=== PATIENT | female | born 1990 | race Caucasian/White ===

== ENCOUNTER 2023-03-23 19:37 | Emergency (ER) | payer MEDICAID, SELFPAY ==
[2023-03-23 19:46] VITALS: BP 125/83; PULSE 90; RESP 18; TEMP 36.8; O2SAT 97; BMI 25.0
--- NOTE | 2023-03-23 20:09 | ED.URI1 ---
HPI - URI/Sore Throat General Chief Complaint: Upper Respiratory Infection Stated Complaint: CONGESTION Time Seen by Provider: 03/23/23 19:39 Source: patient Limitations: no limitations History of Present Illness HPI Narrative: 33-year-old female who is approximately four weeks presents to the emergency Department for nasal congestion. Her daughter is here as well and is being seen for similar circumstances and her other daughter who is not being seen is having similar symptoms as well. No fever or vomiting. No productive cough. She's been sick for the last two days. Related Data Allergies Allergy/AdvReac Type Severity Reaction Status Date / Time Penicillins Allergy Unknown Verified 03/23/23 19:49 Sulfa (Sulfonamide Allergy Unknown Verified 03/23/23 19:49 Antibiotics) Review of Systems ROS Narrative A ten point review of systems is negative except as noted above. Exam Narrative Exam Narrative: Nurses note and vital signs reviewed and patient is not hypoxic. General: The patient appears well and in no apparent distress. Patient is resting comfortably on cart. Skin: Warm, dry, no pallor noted. There is no rash noted. Head: Normocephalic, atraumatic Eye: Normal conjunctiva, no drainage Ears, Nose, Mouth, and Throat: oral mucosa is moist. Nares patent. Mouth without vesicles. Ear canals patent. Tm's without Erythema. obvious nasal congestion present. Cardiovascular: Regular Rate and Rhythm Respiratory: Patient is in no distress, no accessory muscle use, lungs are clear to auscultation, no wheezing, rales or rhonchi Back: non-tender GI: soft and nontender Musculoskeletal: The patient has no evidence of calf tenderness, no pitting edema, symmetrical pulses noted bilaterally Neurological: A&O, normal speech Psychiatric: Cooperative Constitutional Vital Signs, click to edit/add: Last Vital Signs Temp 98.3 F 03/23/23 19:46 Pulse 90 03/23/23 19:46 Resp 18 03/23/23 19:46 BP 125/83 03/23/23 19:46 Pulse Ox 97 03/23/23 19:46 O2 Del Method Room Air 03/23/23 19:46 Course Vital Signs Vital signs: Vital Signs Temperature 98.3 F 03/23/23 19:46 Pulse Rate 90 03/23/23 19:46 Respiratory Rate 18 03/23/23 19:46 Blood Pressure 125/83 03/23/23 19:46 Pulse Oximetry 97 03/23/23 19:46 Oxygen Delivery Method Room Air 03/23/23 19:46 Temperature 98.3 F 03/23/23 19:46 Pulse Rate 90 03/23/23 19:46 Respiratory Rate 18 03/23/23 19:46 Blood Pressure 125/83 03/23/23 19:46 Pulse Oximetry 97 03/23/23 19:46 Oxygen Delivery Method Room Air 03/23/23 19:46 MDM - URI/Sore Throat MDM Narrative Medical decision making narrative: she has a normal exam other than the nasal congestion. Antibiotic is not indicated. She was offered a Covid test but doesn't feel that she needs one. Treatment diagnosis and follow-up were discussed with the patient. Discharge Plan Discharge Chief Complaint: Upper Respiratory Infection Clinical Impression: Upper respiratory infection Patient Disposition: Home, Self-Care Time of Disposition Decision: 20:02 Condition: Good Mode of Transportation: Private Vehicle Instructions: Upper Respiratory Infection (ED) Stand Alone Forms: Portal Instructions Referrals: Physician,Non-Staff, MD [Primary Care Provider] - 1 week
== END 2023-03-23 20:20 | disposition home or self-care (01) ==
PROVIDERS: Emergency Provider Emergency Medicine
DX: O99.511 Diseases of the respiratory system complicating pregnancy, first trimester (principal); J06.9 Acute upper respiratory infection, unspecified; Z3A.01 Less than 8 weeks gestation of pregnancy
CPT/HCPCS: 99281

== ENCOUNTER 2023-04-26 09:38 | Outpatient (OUT) | payer MEDICAID, SELFPAY ==
--- NOTE | 2023-04-26 09:40 | US_ITS ---
The [address] [address] Patient Name: ZULEIKA WADDELL MRN: [id number] date: 1990 Sex: F Assigned Patient Location: US Current Patient Location: US Accession/Order Number: [id number] Exam Date: 04/26/2023 09:40 Report Date: 04/26/2023 20:15 At the request of: DAVE CUELLAR Procedure: US OB transvaginal EXAMINATION: US OB transvaginal HISTORY: MISSED MENSES COMPARISON: No relevant comparison available. FINDINGS: GESTATIONAL SAC: Present and normal appearing. YOLK SAC: Present and normal appearing. POLE: Present and normal appearing. CARDIAC: Present. UTERUS: Normal size and appearance. OVARIES: Right: Not seen. Left: Not seen. CERVIX: 4.8 cm in length and closed. CUL-DE-SAC: Normal. OTHER: None. AGE BY LMP: Unknown LMP HUGO BY LMP: AGE BY US CRL: 8 weeks 4 days HUGO BY US CRL: 12/02/2023 US/US OB transvaginal IMPRESSION: 1. Single live intrauterine 8 weeks 4 days by today's ultrasound. Electronically authenticated by: FELECIA GOLDMAN Date: 04/26/2023 20:15
== END 2023-04-26 09:39 | disposition home or self-care (01) ==
LOC: US 09:39
PROVIDERS: Visit Provider Obstetrics & Gynecology
DX: Z34.91 Encounter for supervision of normal pregnancy, unspecified, first trimester (principal); N92.6 Irregular menstruation, unspecified
CPT/HCPCS: 76817

== ENCOUNTER 2023-05-30 16:35 | Outpatient (OUT) | payer MEDICAID, SELFPAY ==
[2023-05-30 17:06] LABS: Basophils Percent Auto 0.3 % (0.2-2.0); Eosinophils Absolute Auto 0.1 10^3/uL (0.0-0.7); Eosinophils Percent Auto 0.7 % (0.9-7.0); Hematocrit 35.9 % (36.0-48.0); Hemoglobin 11.7 g/dL (12.0-16.0); Immature Granulocytes Abs Auto 0.02 10^3/uL (0.00-0.03); Immature Granulocytes Pct Auto 0.2 % (0.0-0.5); Lymphocytes Absolute Auto 1.5 10^3/uL (1.2-3.8); Lymphocytes Percent Auto 15.5 % (20.5-60.0); Mean Corpuscular HGB Conc 32.6 g/dL (29.9-35.2); Mean Corpuscular Hemoglobin 26.5 pg (26.7-34.0); Mean Corpuscular Volume 81.2 fL (81.0-99.0); Mean Platelet Volume 10.1 fL (9.5-13.5); Monocytes Absolute Auto 0.5 10^3/uL (0.3-0.8); Monocytes Percent Auto 5.4 % (1.7-12.0); Neutrophils Absolute Auto 7.6 10^3/uL (1.4-6.5); Neutrophils Percent Auto 77.9 % (43.0-75.0); Platelet Count 211 10^3/uL (150-450); Red Blood Count 4.42 10^6/uL (4.20-5.40); Red Cell Distribution Width 15.2 % (11.0-15.0); White Blood Count 9.8 10^3/uL (4.0-11.0)
[2023-05-30 17:33] LABS: Estimated Average Glucose 108 mg/dL; Glycohemoglobin A1C 5.4 % (4.5-6.2)
[2023-06-01 06:08] LABS: HBsAg Screen Negative (Negative); HIV Ab/p24 Ag Screen Non Reactive (Non Reactive); Rubella Antibodies, IgG 3.63 index (Immune >0.99)
[2023-06-01 08:11] LABS: HCV Ab Non Reactive (Non Reactive)
[2023-06-01 11:08] LABS: Rapid Plasma Reagin, Quant Non Reactive titer (NonRea<1:1)
== END 2023-05-30 16:36 | disposition home or self-care (01) ==
PROVIDERS: Visit Provider Obstetrics & Gynecology
DX: N92.6 Irregular menstruation, unspecified (principal); Z36.0 Encounter for antenatal screening for chromosomal anomalies
CPT/HCPCS: 36415; 83036; 84443; 85025; 86592; 86762; 86803; 86850; 86900; 86901; 87086; 87340; 87389

== ENCOUNTER 2023-07-18 11:22 | Outpatient (OUT) | payer MEDICAID, SELFPAY ==
--- OUTSIDE RECORDS SUMMARY | 2023-07-18 11:39 | XMS_ITS | CCD ---
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 [facility] Comment on above: Performed By: #### A 1C #### [facility] [address] [place] [address] Dr. Juan Antonio Ibarra TYPE AND SCREENon 07-05-2022 TYPE AND SCREEN Negative Normal [facility] Comment on above: Performed By: #### T NS #### [facility] [address] [address] [address] Juan Antonio Ibarra US PREG BIOPHY W NON STRESSo n 06-28-2022 US PREG BIOPHY W NON STRESS EXAMINATION: US PREG BIOPHY W NON STRESS HISTORY: Congenital anomaly of brain COMPARISON: Ultrasound biophysical 06/21/2022 TECHNIQUE: Ultrasound biophysical profile was performed. FINDINGS: BREATHING MOVEMENTS: 2.0 GROSS BODY MOVEMENTS: 2.0 TONE: 2.0 QUALITATIVE AMNIOTIC FLUID VOLUME: 2.0 PRESENTATION: CEPHALIC HEART RATE: 153.4 bpm bpm. AMNIOTIC FLUID VOLUME: 11.4 cm GESTATIONAL AGE: 38 weeks 0 days CONCLUSION: Total biophysical profile score 8.0. Electronically authenticated by: FELECIA GOLDMAN Date: 2022-06-28 15:29 Normal [facility] US PREG BIOPHY W NON STRESSo n 06-21-2022 US PREG BIOPHY W NON STRESS EXAMINATION: US PREG BIOPHY W NON STRESS HISTORY: Congenital anomaly of brain COMPARISON: Ultrasound biophysical 06/14/2022 TECHNIQUE: Ultrasound biophysical profile was performed. FINDINGS: BREATHING MOVEMENTS: 2.0 GROSS BODY MOVEMENTS: 2.0 TONE: 2.0 QUALITATIVE AMNIOTIC FLUID VOLUME: 2.0 PRESENTATION: Cephalic HEART RATE: 135.0 bpm bpm. AMNIOTIC FLUID VOLUME: 9.2 cm GESTATIONAL AGE: 37 weeks 0 days CONCLUSION: Total biophysical profile score 8.0. Electronically authenticated by: FELECIA GOLDMAN Date: 2022-06-21 17:20 Normal [facility] US PREG GROWTHon 06-21-2022 US PREG GROWTH EXAMINATION: US PREG GROWTH HISTORY: Congenital anomaly of brain COMPARISON: No relevant comparison available. FINDINGS: Heart Rate: 135.0 bpm Amniotic Fluid Volume: 9.2 cm Number: 1.0 Position: Cephalic presentation, longitudinal lie Maximum Vertical Pocket: 3.0 cm cm 1.5 cm cm 1.9 cm cm 2.8 cm cm BIOMETRY: BPD: 8.6 cm cm; 34 weeks 6 days; 12% HC: 33.5 cmcm; 38 weeks 2 days, 56% AC: 31.6 cm cm; 35 weeks 4 days, 24% FL: 7.0 cm cm; 35 weeks 5 days; 18.7 % % EFW: 2778.3 grams, 6 lbs. 2 oz., 26% FL/AC: 22.0 FL/BPD: 80.6 HC/AC: 1.1 GESTATIONAL AGE: Age by EDC: 37 weeks 0 days HUGO by EDC: 07/12/2022 Age by US: 36 weeks 1 day HUGO by US: 07/18/2022 Anatomy: The cisterna magna measures 8.1 mm, stable IMPRESSION: Normal interval growth Electronically authenticated by: GAMALIEL CRUMP Date: 2022-06-21 13:37 Normal [facility] CULTURE URINEon 06-16-2022 CULTURE URINE Culture Observations : LIGHT GROWTH OF MIXED GENITAL ALONSO. NO POTENTIAL PATHOGENS SEEN. Normal [facility] Comment on above: Performed By: #### U RCX #### [facility] [address] [place] [address] Dr. Juan Antonio Ibarra UA (CLEAN/CATCH) [employer]/MICRO I F IND.on 06-16-2022 Bilirubin Ql (U) Negative Normal NEGATIVE [facility] Comment on above: Performed By: #### U MICRO, UACSIND #### [facility] [address] [place] [address] Dr. Juan Antonio Ibarra Clarity (U) CLEAR Normal CLEAR [facility] Comment on above: Performed By: #### U MICRO, UACSIND #### [facility] [address] [place] [address] Dr. Juan Antonio Ibarra Color (U) LT. YELLOW Normal YELLOW [facility] Comment on above: Performed By: #### U MICRO, UACSIND #### [facility] [address] [place] [address] Dr. Juan Antonio Ibarra Glucose Ql (U) Negative Normal NEGATIVE [facility] Comment on above: Performed By: #### U MICRO, UACSIND #### [facility] [address] [place] [address] Dr. Juan Antonio Ibarra Hemoglobin Ql (U) Negative Normal NEGATIVE [facility] Comment on above: Performed By: #### U MICRO, UACSIND #### [facility] [address] [address] [address] Juan Antonio Ibarra Ketones Ql (U) Negative Normal NEGATIVE [facility] Comment on above: Performed By: #### U MICRO, UACSIND #### [facility] [address] [place] [address] Dr. Juan Antonio Ibarra LEUKOCYTES MODERATE Abnormal NEGATIVE [facility] Comment on above: Performed By: #### U MICRO, UACSIND #### [facility] [address] [address] [address] Juan Antonio Ibarra Nitrite Ql (U) Negative Normal NEGATIVE [facility] Comment on above: Performed By: #### U MICRO, UACSIND #### [facility] [address] [address] [address] Juan Antonio Ibarra pH (U) 6.0 [pH] Normal 5-9 [facility] Comment on above: Performed By: #### U MICRO, UACSIND #### [facility] [address] [place] [address] Dr. Juan Antonio Ibarra SPEC GRAVITY 1.020 Normal 1.005-<=1.0 25 [facility] Comment on above: Performed By: #### U MICRO, UACSIND #### [facility] [address] [address] [address] Juan Antonio Ibarra UA PROTEIN Negative Normal NEGATIVE/ TRACE [facility] Comment on above: Performed By: #### U MICRO, UACSIND #### [facility] [address] [address] [address] Juan Antonio Ibarra UR MICRO IND INDICATED Normal [facility] Comment on above: Performed By: #### U MICRO, UACSIND #### [facility] [address] [address] [address] Juan Antonio Ibarra Urobilinogen Qn (U) 1.0 {Pamela'U}/dL Normal 0.2 - 1. 0 [facility] Comment on above: Performed By: #### U MICRO, UACSIND #### [facility] [address] [place] [address] Dr. Juan Antonio Ibarra URINE MICROSCOPIC ONLYon BACTERIA SMALL Abnormal NONE SEEN [facility] Comment on above: Performed By: #### U MICRO, UACSIND #### [facility] [address] [address] [address] Juan Antonio Ibarra Bacteria identified Cx Nom (U) INDICATED Normal [facility] Comment on above: Performed By: #### U MICRO, UACSIND #### [facility] [address] [place] [address] Dr. Juan Antonio Ibarra CAST NONE SEEN Normal NONE SEEN [facility] Comment on above: Performed By: #### U MICRO, UACSIND #### [facility] [address] [address] [address] Juan Antonio Ibarra Crystals LM Nom (Urine sed) NONE SEEN Normal NONE SEEN [facility] Comment on above: Performed By: #### U MICRO, UACSIND #### [facility] [address] [place] [address] Dr. Juan Antonio Ibarra Epithelial cells LM Ql (Urine sed) RARE Normal NONE SEEN /RARE [facility] Comment on above: Performed By: #### U MICRO, UACSIND #### [facility] [address] [place] [address] Dr. Juan Antonio Ibarra MUCOUS NONE SEEN Normal NONE SEEN [facility] Comment on above: Performed By: #### U MICRO, UACSIND #### [facility] [address] [place] [address] Dr. Juan Antonio Ibarra RBC NONE SEEN Abnormal 0-2 [facility] Comment on above: Performed By: #### U MICRO, UACSIND #### [facility] [address] [place] [address] Dr. Juan Antonio Ibarra WBC 2-5 Abnormal NONE SEEN [facility] Comment on above: Performed By: #### U MICRO, UACSIND #### [facility] [address] [place] [address] Dr. Juan Antonio Ibarra GROUP B STREP CULTUREon - S. agalactiae Ag Ql (Unsp spec) Culture Observations: NEGATIVE FOR GROUP B STREPTOCOCCUS. Normal [facility] Comment on above: Performed By: #### G BSCX #### [facility] [address] [address] [address] Juan Antonio Ibarra PREG BIOPHY W NON STRESSo n 06-14-2022 US PREG BIOPHY W NON STRESS EXAMINATION: US PREG BIOPHY W NON STRESS HISTORY: Congenital anomaly of brain COMPARISON: No relevant comparison available. TECHNIQUE: Ultrasound biophysical profile was performed in the radiology department. FINDINGS: BREATHING MOVEMENTS: 2.0 GROSS BODY MOVEMENTS: 2.0 TONE: 2.0 QUALITATIVE AMNIOTIC FLUID VOLUME: 2.0 PRESENTATION: Cephalic HEART RATE: 134.3 bpm H.B./min AMNIOTIC FLUID VOLUME: 7.7 cm cm GESTATIONAL AGE: 36 weeks 0 days CONCLUSION: Total biophysical profile score: 8.0 Borderline oligohydramnios, 5th percentile 7.7 cm Electronically authenticated by: GAMALIEL CRUMP Date: 2022-06-14 16:10 Normal [facility] US PREG BIOPHY W NON STRESSo n 06-07-2022 US PREG BIOPHY W NON STRESS EXAMINATION: US PREG BIOPHY W NON STRESS HISTORY: Congenital anomaly of brain COMPARISON: No relevant comparison available. TECHNIQUE: Ultrasound biophysical profile was performed. FINDINGS: BREATHING MOVEMENTS: 2.0 GROSS BODY MOVEMENTS: 2.0 TONE: 2.0 QUALITATIVE AMNIOTIC FLUID VOLUME: 2.0 PRESENTATION: Cephalic HEART RATE: 150.0 bpm bpm. AMNIOTIC FLUID VOLUME: 6.6 cm GESTATIONAL AGE: 35 weeks 0 days CONCLUSION: 1. Total biophysical profile score 8.0. 2. Polyhydramnios. Electronically authenticated by: FELECIA GOLDMAN Date: 2022-06-07 16:42 Normal [facility] US PREG BIOPHY W NON STRESSo n 06-04-2022 US PREG BIOPHY W NON STRESS EXAMINATION: US PREG BIOPHY W NON STRESS HISTORY: Congenital anomaly of brain COMPARISON: Ultrasound biophysical 06/02/2022 TECHNIQUE: Ultrasound biophysical profile was performed. FINDINGS: BREATHING MOVEMENTS: 2.0 GROSS BODY MOVEMENTS: 2.0 TONE: 2.0 QUALITATIVE AMNIOTIC FLUID VOLUME: 2.0 PRESENTATION: CEPHALIC HEART RATE: 157.0 bpm bpm. AMNIOTIC FLUID VOLUME: 8.1 cm GESTATIONAL AGE: 34 weeks 4 days CONCLUSION: Total biophysical profile score 8.0. Electronically authenticated by: FELECIA GOLDMAN Date: 2022-06-04 17:11 Normal [facility] US PREG BIOPHY W NON STRESS EXAMINATION: US PREG BIOPHY W NON STRESS HISTORY: Congenital anomaly of brain COMPARISON: No relevant comparison available. TECHNIQUE: Ultrasound biophysical profile was performed. FINDINGS: BREATHING MOVEMENTS: 0.0 GROSS BODY MOVEMENTS: 2.0 TONE: 2.0 QUALITATIVE AMNIOTIC FLUID VOLUME: 2.0 PRESENTATION: CEPHALIC HEART RATE: 140.6 bpm bpm. AMNIOTIC FLUID VOLUME: 10.2 cm GESTATIONAL AGE: 34 weeks 2 days CONCLUSION: Total biophysical profile score 6.0. Electronically authenticated by: FELECIA GOLDMAN Date: 2022-06-04 16:23 Normal [facility] US PREG BIOPHY W NON STRESSo n 05-31-2022 US PREG BIOPHY W NON STRESS EXAMINATION: US PREG BIOPHY W NON STRESS HISTORY: Congenital anomaly of brain COMPARISON: No relevant comparison available. TECHNIQUE: Ultrasound biophysical profile was performed in the radiology department. non-reactive stress testing was performed by nursing staff in the birthing center. FINDINGS: BREATHING MOVEMENTS: 2.0 GROSS BODY MOVEMENTS: 2.0 TONE: 2.0 QUALITATIVE AMNIOTIC FLUID VOLUME: 2.0 PRESENTATION: Cephalic HEART RATE: 165.6 bpm H.B./min AMNIOTIC FLUID VOLUME: 8.7 cm cm GESTATIONAL AGE: 34 weeks 0 days CONCLUSION: Total biophysical profile score: 8.0 Electronically authenticated by: GAMALIEL CRUMP Date: 2022-05-31 18:39 Normal [facility] US PREG BIOPHY W NON STRESSo n 05-24-2022 US PREG BIOPHY W NON STRESS EXAMINATION: US PREG BIOPHY W NON STRESS HISTORY: Congenital anomaly of brain COMPARISON: Ultrasound anatomy 02/22/2022 TECHNIQUE: Ultrasound biophysical profile was performed. FINDINGS: BREATHING MOVEMENTS: 2.0 GROSS BODY MOVEMENTS: 2.0 TONE: 2.0 QUALITATIVE AMNIOTIC FLUID VOLUME: 2.0 PRESENTATION: Cephalic HEART RATE: 138.5 bpm bpm. AMNIOTIC FLUID VOLUME: 12.0 cm GESTATIONAL AGE: 33 weeks 0 days CONCLUSION: Total biophysical profile score 8.0. Electronically authenticated by: FELECIA GOLDMAN Date: 2022-05-24 16:34 Normal [facility] US PREG GROWTHon 05-24-2022 US PREG GROWTH EXAMINATION: US PREG GROWTH HISTORY: Congenital anomaly of brain COMPARISON: Ultrasound anatomy 02/22/2022, 03/20/2022 FINDINGS: Heart Rate: 138.5 bpm Number: 1.0 Position: Cephalic Amniotic Fluid Volume: 12.0 cm Maximum Vertical Pocket: 4.4 cm BIOMETRY: BPD: 8.3 cm cm; 33 weeks 4 days; 62% HC: 30.3 cmcm; 33 weeks 4 days; 28% AC: 29.5 cm cm; 33 weeks 4 days; 66% FL: 6.5 cm cm; 33 weeks 4 days; 53 % EFW: 2216.3 grams; 58% FL/AC: 22.0 FL/BPD: 77.9 HC/AC: 1.0 GESTATIONAL AGE: Age by EDC: 33 weeks 0 days HUGO by EDC: 07/12/2022 Age by US: 33 weeks 4 days HUGO by US: 07/08/2022 IMPRESSION: 1. Single live intrauterine with growth detailed above. Electronically authenticated by: FELECIA GOLDMAN Date: 2022-05-24 16:33 Normal [facility] GLUCOSE - 1HRon 04-04-2022 Glucose [Mass/Vol] 101 mg/dL Normal 74-106 [facility] Comment on above: Performed By: #### R PRQ #### [facility] [address] [address] [address] Juan Antonio Ibarra HEMOGRAM AND PLATELon 2021 Hematocrit (Bld) [Volume fraction] 33.5 % Critically low 36.0-48.0 [facility] Comment on above: Performed By: #### A 1C #### [facility] [address] [address] [address] Juan Antonio Ibarra Hemoglobin (Bld) [Mass/Vol] 10.7 g/dL Critically low 12.0-16.0 [facility] Comment on above: Performed By: #### A 1C #### [facility] [address] [address] [address] Juan Antonio Ibarra MCH (RBC) [Entitic mass] 29.3 pg Normal 26.7-34.0 [facility] Comment on above: Performed By: #### A 1C #### [facility] [address] [address] [address] Juan Antonio Ibarra MCHC (RBC) [Mass/Vol] 31.9 g/dL Normal 29.9-35.2 [facility] Comment on above: Performed By: #### A 1C #### [facility] [address] [place] [address] Dr. Juan Antonio Ibarra MCV (RBC) [Entitic vol] 91.8 fL Normal 81.0-99.0 [facility] Comment on above: Performed By: #### A 1C #### [facility] [address] [place] [address] Dr. Juan Antonio Ibarra PLT 179 103/ul Normal 150-450 [facility] Comment on above: Performed By: #### A 1C #### [facility] [address] [place] [address] Dr. Juan Antonio Ibarra RBC 3.65 106/ul Critically low 4.20-5.40 [facility] Comment on above: Performed By: #### A 1C #### [facility] [address] [place] [address] Dr. Juan Antonio Ibarra WBC 9.9 103/ul Normal 4.0-11.0 [facility] Comment on above: Performed By: #### A 1C #### [facility] [address] [place] [address] Dr. Juan Antonio Ibarra US PREG REEVAL ABNon 022 US PREG REEVAL ABN EXAMINATION: US PREG REEVAL ABN HISTORY: ultrasound scan abnormal COMPARISON: Ultrasound anatomy 02/22/2022 FINDINGS: Heart rate: 146 bpm Anatomy: Posterior fossa is upper limits of normal, 10 mm. GA: 23 weeks 5 days HUGO: 07/12/2022 IMPRESSION: 1. Single live intrauterine . 2. Posterior fossa diameter is upper limits of normal, 10 mm (7 mm on prior study). Electronically authenticated by: FELECIA GOLDMAN Date: 2022-03-20 20:55 Normal [facility] US PREG ANATOMY SINGLEon US PREG ANATOMY SINGLE EXAMINATION: US P REG ANATOMY SINGLE HISTORY: anatomy study COMPARISON: No relevant comparison available. TECHNIQUE: Transabdominal sonographic examination was performed for obstetrical and evaluation. FINDINGS: Number: 1 Heart Rate: 138.0 bpm H.B. /min Amniotic Fluid Volume: Subjectively normal Placental Location: POSTERIOR with lower margin 4.1 cm from os. Cervix Length: 5 cm ; closed. ANATOMY: Normal Structures -cerebellum, choroid plexus, cisterna magna, lateral cerebral ventricles, orbits, midline falx, hard palate, four-chamber heart, RVOT, LVOT, stomach, kidneys, bladder, umbilical cord insertion into abdomen, three-vessel cord, cervical spine, thoracic spine, lumbar spine, sacral spine, right upper extremity, left upper extremity, right lower extremity, left lower extremity. SUBOPTIMALLY SEEN: None ABNORMALITIES: None BIOMETRY: BPD: 4.6 cm 19 weeks 6 days HC: 18.1 cm 20 weeks 4 days AC: 15.0 cm 20 weeks 2 days FL: 3.4 cm 20 weeks 6 days EFW:357.6 grams; 74% FL/AC: 22.9 FL/BPD: 75.0 HC/AC: 1.2 GESTATIONAL AGE: Age by EDC: 20 weeks 0 days HUGO by EDC: 07/12/2022 Age by current US: 20 weeks 3 days HUGO by current US: 07/09/2022 IMPRESSION: 1. Single live intrauterine with growth detailed above. 2. Borderline prominent posterior fossa, 7 mm. Follow-up recommended. Electronically authenticated by: FELECIA GOLDMAN Date: 2022-02-22 16:46 Normal [facility] Coding Summaryon 02-14-2022 Coding Summary HTMLBase 64 OuvexarpMJq6iLv+PGhlYWQ+PE 8CKRUgH01uzMBmoJ3VV7fVXB6S JLFUXOGIXU0BGF6lrPM8TTxbC2 VybiAv HmqgqVMeXP75AMt5QUK8fAtbTZ vrhM1ieCFrI7h0GcIuVC85nD07 HPemWURfIvL5CrVcssjlmZJj U7luQmZciORwLtw+PHRhYmxlIH nwSJEvYZwzBVPqJoCpjSclFE0q Hk3zEIHaVCXzxShodVKhWaYm e3xuEGRsGIpjGE9zwMnwT8UncE U7NJSyc6a9Es32sGV+PHRkIHN0 dViqESxrc941MnNza7evWBC1 hIJqTZldILL3I59li4H2QPAiVR XkDOJ8xAO3yS3cfMcvmieoO0St fUOyYiE0ZGK4eKWuoR0erVnx tfevhF7bLvu+F11DWQ8SJHAEXY 2JZml8A2GzWwyqeUF+HO86TQNj FZ89jXKioCMub1zzqNx8HyEo PJNfJQR1nFjoVKqdl7BvWYKaU4 6nyLGpk2G3BVJhvHddfWCjUoNw mIU2uV5zRRycpuqqy0jgdlnw Dpsgg2ljgr30wW12C12nLUqgXT ZwTPK3XFByLHXttItxmr6thP3e Ii8+MGqyl8tew3aqwAd9MvDa BAGmqqXjnTxgLYC3f7TbAx49W3 XvpGmfg9ZaEal0od14kZKbw0T2 qGZ1WEhvTERmsE4nPPokRzQ6 DXDfIiCzjR43gBSuYQzbLb7opP mzzLelCJ8pVXFqsxraRKQdrV6m OVGnpXJvgYtjGD6tTSZmshto q702DaYyVXB1EIHnnOChZ2PvzK 6rHkSjNUIxSMCcV9PpaAPqSDxz H146KLwzPxV2GOWiheHtH9Qk PKXwsRuoJvT0b0K4Ud1Pr0Vxbw kgGAG7DQhyTYH5VsUnFmOyBoQ8 L0GwPyf6ILSwmFwpSB9rZ5Ww OVZfuxjbawuftCP9IIQtJZLkxM 71rVFtJIxfBd6jj7X0f277MWZf YGWrzA50Qw2dhRttQGAedZUP pV2nzrdio3yhagliQsQjNXZgZR i1BQi1ERTkoFzlYkIwOKZ6MfR9 UJI9fTPisV3yiRubtlgqbA4h Oyc+X51qgP2wFQW7DQK3ypsqSG QgukScXN10LE90K4CfMtrsxUWx bGU+PUTcnbYidIprXH4fRcWb k7goo0HzLOcoT2FlQSWeDKukGz p1NWMuNID4qNG2hT0nIJOoKZdy i8Z3nLG0S2MurrQqkf2ma3yf HKBeIRjlU25xhIYpx9F7GSIziX H1JQDkdSfoEaUrzS36Qtw+PGNv wXkgf4JkBzvkn0rgj9bbcTg8 SeEtRQGaxrQodKfnRZO2m1ItLs 34Z69eMYqfCHXyGSWcUKAhSLCf aZohny3paT1mKr4+PGNvbCB3 gHX6zK7fPRYqHxJ8ANbnL885Vh UqvQRwZqzim0hrk2rcwSc3QcDk QNQtktBozMigQGB5a5PdMs45 E31mINpyHIMwKYRgWWZkRVSjbJ fsvx4cxN9uRw2+BL8sq9yemb99 mB13pGR+RAVzCPB9lCvsTWcz CHRmkA4gVGhqTeG1SAGmRyDvwN 00sKZrXGbbSh8dkTdypFyiPJ2g KELrwuckk251BmPcs1bdLEFw qWMxXNyoOYP9O07rd7N5WFZyZM FxJON5iOK9pE0zxBafbahvyULj yXakgfCubAklKNopCFlmC817 IHRvcDsnPlBhdGllbnQgTmFtZT t2L6RiOcw2EJYjbRbqQR5kcGRe JTyvUi4iaAoaqXcsCG3lWJWk cuapb827GsRad3tjPSLcwEWqUZ xkVXR8F09mr7I3OEFyOYSxUWM6 cWS7hR5pwWbrujrkaHWjeWqm wiHxbQixNZvnOVcjW647DQGlpF lyLmIgzoSzIKYzsBP9XB66VM20 hLHfs7L7oCZ0Q7MwDVSeoety vrzdxLQ0HGLdNWBebR13Qq5ojX xvKo5oKXKsLJT2KVLgtBPtU8Yr wZ2dDlGdJXIgVGNaV9IvcIAf JWnmX467YPreIzL9CUXkwwPrY6 TiZZVkyFdaLcB4h6X7Ev9XV2W5 BB97JA25iSMks6W2rUJ9O7Cw ZWWyszatwwpokZQ0KQJfYCQaqB 65Ss3uxQjcXh9sERCgWIE4PZUw bGSyJ7LduP7tTlBwBGNwERVf D1QafXFfWVfkX665YLrhBqY7KW JppeKrJ5SwKGGgzGzzYlA8u8U8 Eo0SVAx3FR74SL36fLQjb3Y2 uMI7L2HhUOAhoqfphshzyFB6SF NhAXGkzX30Qx2arNscWq2uTNYz VPP9EEOueADaH8VijT2uRtOb TRTaXDPzD4XxcWCaVQahQ940CO igNsE3TELczvTdV5JnSAXvjRsi XzX0d9O4Bm3FHGTvHH57YXZ0 kQB4YP54HT14W5AkHqyghBGwcM U+PHRhYmxlIHdpZHRoPScxMDAl DdSqwQhdUS9oVy1iXVBmZDCr cXmbzIAcMoGrz5iiVHRpWChuWA 5xvCdgC5KsgXC6RQIjs1m6Kp00 D94cT8AwiDN+LGZgfOI0tMC1 dU5dAwFaIoA3XWdrD453XxLlnB SxQqdoy5ujw8utbBh9XiH8APEd gnMzhGowNIH3h5VdCy40M24s IHdpZHRoPSIxNSUiIHZhbGlnbj 1ayW7zJs1+HWCqaYU2zGN0uA0x GmPtYjX6CWnyS782MhMchQBv Xgzox1xty6sujFw8NdNvVYWllv TutFwvAGY0s9ZcVj05D7QdvHnp i4FoCju4ku01vZZtr0H5oAF0 N3RpNUBcfckxyOYwtLqyUE9dPA OuvfeiZSCpeG1mQCLwV8i1BaZa ExQ6FBmtH0MxpxK9LADufHRf XRksODG3Q32ad0J2IXXjCOZoET Q8eZC9mZ3zoDkjdcanzCBfoGcg hgJpgKhvJVaiAGhoW507OVZe bFfvYKEzcS9vKXJwhMKrpJvlYB 4wNTBpbjsnPlNURUlOLCBWSVJH SB0WDKSJRHJ5V9RkVkw5OLKi kPekVL6qhULwTGyaEo5geDjvsJ kaXC2gJUElmkqvKUDiwJ9oGCJy bBDtuRfoLH2nMANcriggu064 DdVbTPP1NXVgiNCiM3HczB1uVj CkKTVePXRlO5BedVBfQDcwC675 VEpzFqU2XKRjqlEtC2GkCUFv mQrnRfW4g6A5Pu6lOA3dGB6wCY lfMG26UP73eCMfv0T6xRL9R9Rn YRKcddhybojhfUW4PAWqQUEu fC84yNGsSYzgHy1zx2F8v046YC XwDSSirN38Al2enIpwGDQevJSI zL5scvqyv3xdqznaRvVrTPWx AMf3HAo0CVJlyMwmIvNrGNU9Zo N4YVZ1gKWlrI0rqCtwikkjiA9s Oyc+GocpJVZenhN5Z5QjVll5 QNBmxZahFC8imOXgKAicEo3ovO qdrQnmYB0tFHVrzxilQYHolX3q RAVnlBSzuEnsFV1yTRCidypu k238NlIiJTU3CKAkyTAqT9UehC 2tPnZsBNBfRQNmA1DleWQtVCff S405LYcnHjW9QLKxvbWrR6Wn KJQdnDhhAoP8o1P5Ik3CUB7XTC Z9A6QhJog4ZHEjqSiyYQ1wgIDk MVswTu2jxXahbPdvPV5bNWVh xlodYIHwuC8wEAFwyTPxxLsmLH 5eRTPqmcnxd790SyWiFYH2SEPg jOVgB4AdkI9nEqBfYEIjLSQx K0OqdFMfLBvmZ904YTgcGbB4VA EoacYkM8TcVIOenHevIhT9n3U9 Ed7RODyjaMR+MT93ij60K2Ag YkppKsf7DNEnMGK7uLT4pJ9zFX HwHKala9R5gOC4V7XstnLlyb1f v3lnTMHdZNqjX82ulHVit6T6 BZSjrWO1GUExtPunYkCdnM12Cz c+FAFdfIktz0ZkZpeap3sqz6ta mNe7RtGdXZZryfNlcDrlWZO8 p5TxBl39H84hBCdjMMRlNFZiSP NqGZVbyFyqun3rjG9iJu0+PGNv yLL3vGE6mI4eQeRxYyH2YRsr N935VeRrfBFlPleud3vcd1wxhG y3OvXoWPOqkgWlpPnwRHG8u2Ou Ni80L6OjxDjuu3XbWgz0kb93 lKVgt3J2wTG2J2QkFAZnrdrigC EstAujPM6vZTRuqzvgIZXseB5d OLNjR9d0IfKqMdS1CUdyQ7Gp alU0FOJmzRKjZBMskHKNlQ7pkp tig5kmfqyvWrBzAQMeYKr7MFz5 SFOzgJhaFoVyFLM5RqC1YDH3 lHUzqB1rtRhycmgcoT3tChl+UG c8o0kzhQQyTH8juAI8NJ85PS16 gLVjc7Q7vHQ5D7QrWQHavujm vgkqwKB7VUGkOEWpvU92Zy5xwE ltHw4yCSMzULN6YSYlhFOgY4Vi rC3eNzRtNXOeBMAwH1GscWPe PAttV082KChuGqP8CGTvwsDcC1 ScBXRutWhvWtV7k9K3Hi6OEM98 GI87GR26lORtf8M3hDW7A6Ty HWHxjzppfloisWF7KGDyYORyjC 92Im0imAhnYx7hNYChUHT1EYRk sTZvM5CrrM3pJhMmJLOpOJGm R5LroJEsVIbrT455UOqfAoO7YN YkliNbT2PsZIXwtJbvXhZ8m9V2 Lc8RMm43PM28KE06tLSwc6D1 iHN4D2CxPJAddglvkxecgTD0NL HbHBCihA44Oq7ozOpsIb0tGEPo KYR6LYKlxKHeJ3LaoS4pDaKe FTBfVISjA1EhkSHkUQuoB069SK ajFmS9URFrrcGqZ2FwKGVuvYqj BlS4f9D5Rs7FQRymbtl8M1Qi PjwvdHI+IT87YJTtXA95fOPuuV Pqm3zvcVs9SzElDTZuRCU0wQci XMlmx8RgUSNuX06syRPzr4S7 IGN (more content not included)... [facility] Coding Summary HTMLBase 64 ClejzylpMAs4hJg+PGhlYWQ+PE 4GDZZpD52bdSTbqF3IP3vAPH1T QTVRURBFWQ2VEL6ivLA0BGfgX3 VybiAv CteaxXOiWE31BVh5UPJ1zWmxBO gmdC0eiORgZ7h5UqYnPY31rP75 XAmsBVMqBsJ1BrVapvlmdUTk R8reWsCedNVlPbj+PHRhYmxlIH ohOUCqUBhhCWStYvHszQqzUI1w Ry9sUKOgWBEnpHgznILkXrAd j5eeOIOiWJouVI5obFopF1MtnM A2JSUkl8y6Xr98cGE+PHRkIHN0 eVzdKPoht301LrWre5fdMCK3 jZQaZJoiYSG3Q46mf1E5SHOyQZ VxHFX9bDE3hP8xnUzejcqjH8Km xDLhKyD8LGZ3lJHvbC0dnNca nozejK7qMff+P43NLT8FUBPDDF 1RLsr6A4QgWttmnZI+OA11ZVIf UK58gNMmmBXvv6adxJg3RkZi WRUfYEY3rYlzJOsqb1NaBGCcV4 4rlYOgc8A8KHWdsJzurWSfQwJe zCC1fI3xSQzeywpgg4odiuao Gtcwv9ndfn89kV86Q42fXPgiLF EpEIK2AKSfCEFxyDpzwn5ytX4m Ii8+XUwpj9omj0egdXb9UbYp JDEmgbQlkIvwENS1l9BhNt37Y0 GweUora3SdErl0ku23pYRfy8J0 jFU3LRncCUVtsX6cCQpgHiZ9 FIObZbAuwG82zPCdXVvmWc5cxE gwkHejBD6yDBYvgwafJNToeK4k WBQjlYOipUiaXI8tFVLakhdh v352UrZoYES8YUHbkQKoN2JidD 5vOcXcGOSgYUPcT4XxeJTfYCxy I798KXowLiB1EWTdvtAfS2Zy WWRoaDqbNzI5k4Y8Re2Qw9Gyyi dzZWY6LXwaOXI4PsSgKaRuDjT2 L8KmGgx3OAGxfBnwTN7xQ0Cw GOFxyrhyqlxsgHF8HPFxZQBolX 36vAKwSJfsPe2bx4D0w524QQJd ZTUszT23Vx8ydHiyBBAzcINF nR4nrpras5mfhmizNdXbAHFiYU x1QBa9OOWjbGcuQkPcCCS0PpY8 JYY0aQSylT8wdAxjjfwibO8e Oyc+Z11scR7lBKP4OOZ2zpheGB UgvkYkZU59WZ90T6CeYqdnfUKb bGU+OQJvutQqjNkoQJ8gIyWk v2fqv6ImBNiuP6VqZMNoPGdiUc h9KJXjVDN8cHJ6aA5tFHAiHUng k0R1gWM8E5CbowTqju4al2la XWLiDAcuK42mfLPop1L0MMGxeQ K4IGWgrEwlQiUblP27Izy+PGNv gAbcq7JvZfljj0cwn3nlnGy6 SgCpLHDaysZvuYtuDKV9m1UeOr 80X34yJQnyRVTjLFPmJSYrOORk pTqlxv4ooG2sVi0+PGNvbCB3 yPW7oG4bFNWcIfM8WPliM746Sr YrlYZbLowbx4hwn9ywhDt0UwHv LBGpkrJomMhhOUB9j3YiSu75 O23aMMuxNQFgSTWzEOFrOCVnfG agnn2hmP4bDs7+OR8kh5jabf69 oO93lKL+ODHsGTZ3hQkvKZza AQBpjT0nJEpiAaV1NFPnLqWdgT 70wJSmUHtxId8bjJvlxHtnKP9j ZJKpklvsq999QnKrh3ovGWUi wBBnDNfcMUI5A03bn5Y7TNAbDY RjPAQ8kRQ4cC9ugDdqmqfxsNJp lEhiitJijSnzMKdbOPbsT295 IHRvcDsnPlBhdGllbnQgTmFtZT k2H7OrVbl3UEUhgLruJV1tfBXa AFwmCj7wtYskbWafSZ3oXGCb lxvxi572PrMlq5uqUGZxlCDhVK ejWNO2Q15ws5D0UXDyVMRsUYN2 vED6vE6rzJoocrzbbUJmuDuf yzLsbRsiOXxpLHiiL692REKbqM pwXdSgrvSrBHQwfQZ3KY78MW28 sBPky6M9wBF9C3ZfGVBfxpzj fzonjBS6XRAdLULawR48Bo7euC yrPu0oGRWkSEM6EUFknTLfG4Kz vT0iPdUuWNKgYGSnV7UytMCz NEyaH836THzhBtA8UOTzlhIdQ5 DrOVYnvBijMoA3f8C4Tz4LI6T5 JK86XB51zJRlt2A7gPY9F8Qi WYOeblccjiyhkNM6QUPjWVCbnF 08Cr3boNkoYo6gQJVhELL4YWLi oLKiM9IfrY4dSdWxXAEiPGXn E1FquPRtIBkoE301JXlmBdW2DC CbujBvQ7AvFPHctDbaUqP6v8X6 Qv3QBKy5PH15KT81sSPae2O5 dJF6S9YwEVJiajcqbdzjuQM5OT OdNLWraT03Am0keFrkSl9aBNFc OMN5VTFlwCLpS3SatT7nTiAd NPNtSSVdA7BozIYyQThoY803RP tnHdW5GINycyWbK3AvBTEzjGgy NqI9f9Z8We3HXNFmXW10ROZ3 zBQ3HL66GJ18O8KyAshwbVCakS U+PHRhYmxlIHdpZHRoPScxMDAl YbMpqBfjEG5aOn6iOCYdWLEi rHjngRVtNuMxp4znSQZbPBarHJ 0uwLazB9NrwQI2LZYat0a2Yv12 C92aK2CuxNK+JHArsRA0kRH1 oF9vCiXsCvJ3YSjdS441TzTuaK GqRqomr0upc2yceJp6JtX9QDYt qxGgrNpiSFI5r7HgNn94S63o IHdpZHRoPSIxNSUiIHZhbGlnbj 3jcZ0kUm6+JUFoyXE8hZL4iU3a FkZsPrB1DXysU863XeNubHUp Sgwck2aar4iooNm9YrXeKEOpzh JjtNdeLOI3m9YgWn14W2GiuFav h8BdKfe1dr88sYUwd6X1sHI0 H1DhGGJoqrtjhLKyfPsdWV4aGY CwfwrhYKWmzN6cTCNrV2v8VbWu KeX8DCfuJ0BklsW9OPSdwXMh RPtdSIT6V25cf8L1SXTaQELoDJ V3xFM1yU7amPympmxssMIudBfj iaVfsSywUXwsAJtyT139GWBe hKsoAZPfpC3nNNJofJCkmOilHB 4wNTBpbjsnPlNURUlOLCBWSVJH IU8MMZMXNLW6C4NcQxj7CNWh eGfiCZ6sqCNoZEslDz6iiMytbV fdAU8aKNWbigmvJXBueX0jARLo sLVqeBnkZH1oTLCyhulnx118 ZoAeNPP3EKZwtOMpX0DtgU0dZn AeZMEjPEEsJ0SpiWRfDGawH929 PCjcNmI4USJhsqQjN6ZyHLZe wUuhWgI6q6Y7Fp9oOW6aDD1dJK dcYG53PT10gRRit8N2aPP4B3Sm FTOgwoaprzptcEW2TIQbKBEi pO58aDKwSHrnHm9fq4J1p963EV NeEFHacP62Kl3mrXvcRXDjaASJ pC6doichv5lggiwuWcOxTNEd XLe9HMq3JHEdpFffCbQkNLR6Kl S0EPX7aPMqyL5vaCgpaqpvrI6j Oyc+ZdgrZNLpfpR0U1JaHje9 LJTyjUevJZ7ilTZfSIqcIp7tyZ pqnTzwWJ4eSLGigioaAHEroL9c UKHwyOWpnNbcGJ4uFIJfsvvz d412VrJyWHB8VRJhmQFwF5GeyR 7qRzErRVLfGKDyH3RxaGCsIFsj T958SMfdYvI2ASIxyrTsQ2Hq OHSglQulVlQ3h3U6Zb3HAN6KUN Z5S6XzBqh8QIPamAfaZJ3mbZQp YFftNk1bxDqukTsyPI3oNSQs zcmpAWLbtV4yCNVamFMvdYzkPV 1sLSMnmddhc238JgAyGAS0RILa gMWhV6SjkD5pEzQjDUOpUATf U5QpvCZjGSzsS143TNueQmV6FG OyteMtT3KtGFKwaNqqDzZ5q6W0 Fi3KsANiZ0VlS5x4Q6VzLmuh dHI+FR55JIGpZQ79tSNjuHVkd6 avcWb8RxGyGIKvQLJ9jPpaCFqq z4BxXDYbL26tdQVxp0X6ELKo oFxhzPBsVlQraZR4cX3nYHcmhm lzs5efjbwmEkiyy7bvtq06sQ68 Q04tLLxoLAJtWQHpAVBrGWOy hHxhmo8qiO3nPc8+SAXfxSS9bK X2gG7jXkYjXdA9XYmiX707SvDz aKRkPthbx3ybq1msqQu0RhLi XEWvgcZbvIbwWXL0r5ZbOm95T2 9sIHdpZHRoPSIyMCUiIHZhbGln po7evV7mJf6+VS9hq6uxov25 fM85bSL+KKRgOPN8jFbnHMmcRU SpeE7wRIznGvB9SYPsSsMlhN00 jSDoABlrEz5juUkcwLzpSF0g NTGihmhva763WkWqc6ogDPTpfW VtMRupJBF8Z88mc9D2HPDlIFYy GOG9yAW8pW6rqLpcfrthfXYk wLzvxeMutCifJJemCLdeV952AT WcqXybXlFwbLKwA2osljSQAP5k OjwvdGQ+BELlSRF2rXfmTGzp NZVqdW9xOJAhP8y8FyGbQcI9YC nmX2FcbiV8IJHxhKFlOMDstUWK rC9kjwjdv3iyjyswQeQsXIUx TKx0OEt9RRXlfUsjQfXbBAS2Ao C6YYZ1jUQbmC2irAcaxybiwT6s Oyc+RklOOjwvdGQ+PHRkIHN0 sDywBMuaTJWxbF8sIEQhI3z3Ah OwGoG4RDdgC1LiduC5KLDauQXh WFArmYCHsT1pufgxc1isnidn KoDxWNTcFFh1BTk2KYKarSlvGu JxWXL9PxY2ICT8uXJfeK7wxOey vnnlaB5lSrz+TVJOOjwvdGQ+ BFAiKKZ5zLucGJllGUUytS2yDQ FhE8e4SuYvMgW6MPblC5CtjyX3 LHNylOFvBMIvtWVPzR9xflom q2qzqsigFzTxCCHlFLh5FRs7YW CyiIkcKlYbOGB1CoK9ETY9pLQz xZ2yuYrprqdmhO6dWob+UGF5 RNE8XL69HY90U7SrKyyojESmeC U+PHRhYmxlIHdpZHRoPScxMDAl VcVfhPgqCU6tZf0qIILhGCAc bGx (more content not included)... Normal [facility] CHLAMYDIA/GONOCOCCUS RAINER (SW AB/URINE/PAPon 02-09-2022 Chlamydia trachomatis, RAINER Negative Normal Negative [facility] Comment on above: Performed By: #### R PRQ #### [facility] [address] [address] [address] Juan Antonio Ibarra Neisseria gonorrhoeae, RAINER Negative Normal Negative [facility] Comment on above: Performed By: #### R PRQ #### [facility] [address] [place], [place] [address] Dr. Juan Antonio Ibarra AFP MATERNAL FOR SPINA BIFID Aon 02-08-2022 AFP MoM 1.41 Normal [facility] Comment on above: Performed By: #### A FPMAT #### [facility] [address] [address] [address] Juan Antonio Ibarra AFP Value 66.8 ng/mL Normal [facility] Comment on above: Performed By: #### A FPMAT #### [facility] [address] [address] [address] Juan Antonio Ibarra AFP, Serum for Spina Bifida Report Normal [facility] Comment on above: Performed By: #### A FPMAT #### [facility] [address] [address] [address] Juan Antonio Ibarra Comment Comment Normal [facility] Comment on above: Result Comment: Melchor Chaudhary, Ph.D., [facility] Director . References: Available Upon Request. . Multiples Of Median Cutoffs For AFP Elevations Briscoe 2.5 Black 2.8 IDD 2.0 Twins 4.5 Abbreviation Definitions IDD - Insulin Dep Diabetes OSBR - Open Spina Bifida Risk . For further inquiries contact [email or web address] [facility] at [phone]. . This test was developed and its performance characteristics determined by [employer]. It has not been cleared or approved by the Food and Drug Administration. Performed By: #### A FPMAT #### [facility] [address] [address] [address] Juan Antonio Ren Age Collection Date 18.3 weeks Normal [facility] Comment on above: Performed By: #### A FPMAT #### [facility] [id number] Juan Antonio Ibarra Gestat, Age Based on LMP Normal [facility] Comment on above: Result Comment: Reca lculations are not recommended when gestational dating by LMP and ultrasound are within 10 days. Performed By: #### A FPMAT #### [facility] [address] [place] [address] Dr. Juan Antonio Ibarra Insulin Dep Diabetes No Normal [facility] Comment on above: Performed By: #### A FPMAT #### [facility] [address] [place] [address] Dr. Juan Antonio Ibarra Interpretation Comment Normal [facility] Comment on above: Result Comment: Inte rpretation: Screen Negative . This result is screen negative for OSB. The AFP MoM calculated is based on the gestational age provided. MS-AFP can identify up to 80% of open neural tube defects. Closed neural tube defects and some open defects may not be detected by this test. This test does not screen for Down Syndrome or Trisomy 18. If screening for Down Syndrome or Trisomy 18 is desired, contact [facility] [employer] [facility] to discuss available options. The [employer] recommends amniocentesis be offered to women age 35 and older. Performed By: #### A FPMAT #### [facility] [address] [place] [address] Dr. Juan Antonio Ibarra [age] [facility] Comment on above: Performed By: #### A FPMAT #### [facility] [address] [place] [address] Dr. Juan Antonio Ibarra Multiple Gestation No Normal [facility] Comment on above: Performed By: #### A FPMAT #### [facility] [address] [place] [address] Dr. Juan Antonio Ibarra OSBR Risk 1 [place] [address] [facility] Comment on above: Performed By: #### A FPMAT #### [facility] [address] [place] [address] Dr. Juan Antonio Ibarra PDF . Normal [facility] Comment on above: Performed By: #### A FPMAT #### [facility] [address] [place] [address] Dr. Juan Antonio Ibarra Race Normal [facility] Comment on above: Performed By: #### A FPMAT #### [facility] [address] [address] [address] Juan Antonio Ibarra Test Results: Negative Normal [facility] Comment on above: Performed By: #### A FPMAT #### [facility] [address] [address] [address] Juan Antonio Ibarra VAGINITIS/VAGINOSIS DNA PROB Abdirashid 02-08-2022 Bettye species Negative Normal Negative [facility] Comment on above: Performed By: #### A 1C #### [facility] [address] [address] [address] Juan Antonio Ibarra Gardnerella vaginalis Negative Normal Negative [facility] Comment on above: Performed By: #### A 1C #### [facility] [address] [place] [address] Dr. Juan Antonio Ibarra Trichomonas vaginalis Negative Normal Negative [facility] Comment on above: Performed By: #### A 1C #### [facility] [address] [address] [address] Juan Antonio Ibarra ABO and Rh group post transf usion reaction Nom (Bld)Ordered By: Eleazar Hess on 02-06-2022 Microscopic observation Gram stain Nom (Unsp spec) [facility] ED Clinical Summaryon 2021 ED Clinical Summary [facility] Emergency Department [address] [place], [place] [id number] ED Clinical Summary PERSON INFORMATION Name: ZULEIKA WYATT Age: 31 Years Sex: FEMALE : 1990 MRN: Acct#: Visit Reason: Rash; Medical problem - minor; POSS BODY INFECTION Arrival: 01/29/2022 20:27:46 Discharge: 01/29/2022 21:17:00 LOS: 000 00:50 Check In: 01/29/2022 20:27:46 Checkout:01/29/2022 21:17:00 Address: [address] [place] [address] [address] [place] [address] PCP: Andie Stoddard PROVIDER INFORMATION Provider Role Assigned Unassigned Johnson Wright DO ED Provider 01/29/2022 20:29:08 River RN, Jessica ED Nurse 01/29/2022 20:31:57 VITALS INFORMATION Vital Sign Triage Latest Temperature Tympanic Temperature Temporal Artery Pulse Rate 76 bpm 76 bpm O2 Sat 100 % 100 % Respiratory Rate 16 br/min 16 br/min Blood Pressure /77 mmHg /77 mmHg MEDICAL INFORMATION Medications Given: Medication Dose Route clindamycin 150 mg PO Allergy Information: sulfa drugs; penicillins PHYSICIAN DOCUMENTATION Patient: ZULEIKA WYATT Age: 31 years Sex: FEMALE : 1990 Associated Diagnoses: Sebaceous cyst Author: Johnson Wright DO Basic Information Time seen: Date & time 01/29/2022 20:32:00, Without distress, ambulation without assistance, checking out the ER as walked in. . History source: Patient. Arrival mode: Private vehicle, walking. History limitation: None. History of Present Illness The patient presents with This patient presents to the emergency room for evaluation of increasing tenderness to a left breast lesion, over the past couple days. She states she has had a very tiny area there for years and she used to squeeze it and material would be expressed and it would go away and then it slowly come back and she would really express it, then go away and she states now she is , and she states she has noticed that is gotten a little more swollen and and then the last several days got little bit tender, and there is slight erythema to the skin. She has not had this irritation in the past. Is never been drained, she has no other problems. No fever, no problems, she has a single child, and is around 16 weeks . Not a diabetic, no history of cardiac valvular disorders, no history of synthetic joints, she not a smoker, she here with her , she has a little girl with her here today 2. She is just concerned that being she wants to make sure this is okay, her had an infected cyst on his left shoulder number years ago, got quite large, she states she has never had MRSA before. She denies any sore throat cough congestion fever chills nausea vomiting diarrhea. She seen in room #6, seen in the presence of her , seen in the presence of her little girl, and the all very cooperative and pleasant. That she is got a sebaceous cyst which is about 2 cm when you get around to it including the subcutaneous tissue around this which is in the left medial breast, its not adherent to the skin, it does not not demonstrate any skin retractions, there is no pointing to it, it is fairly deep, it is not significantly tender, and it does not require an I&D procedure at this time. The remainder of her exam is excellent, HEENT exam is normal, no anterior posterior axillary nodes, her lungs are clear, there is no expiratory wheeze or rales Chest motion her heart rate and rhythm is regular no murmur, and her abdomen is soft, she denies any vaginal related or related issues. The skin is very slightly erythematous around this which I have a feeling is may be from manipulation we will put her on some clindamycin which is okay during , will take care of staff, will take care of MRSA, will take care of strep, and warm compresses, I told him they can call me down here if there is an issue, and return as necessary to the department if this flares up but otherwise to follow-up with their family doctor or their WORKERS COMPENSATION CLAIMS ADJUSTER doctor. To this they agreed.. Health Status Allergies: Allergic Reactions (Selected) Unknown Penicillins- No reactions were documented. Sulfa drugs- No reactions were documented.. Medications: (Selected) Prescriptions Prescribed Quantitative beta-hCG: See Instructions, Quantitative beta-hCG. Please call or fax results to Dr. Ortiz's office, 1 box(es), 0 Refill(s) Documented Medications Documented Multivitamins with Vitamin B Complex, Vitamin C, Minerals and L-Methylfolate oral capsule...: 1 cap(s), PO, Daily, 0 Refill(s). Past Medical/ Family/ Social History Medical history: No active or resolved past medical history items have been selected or recorded.. Surgical history: No active procedure history items have been selected or recorded.. Family history: No family history items have been selected or recorded.. Social history: Social & Psychosocial Habits Alcohol 11/13/2021 Alcohol Use: Current Fr (more content not included)... [facility] ED Note - Physicianon 2021 ED Note - Physician Patient: FRANCOISE WYATT Age: 31 years Sex: FEMALE : 1990 Associated Diagnoses: Sebaceous cyst Author: Johnson Wright DO Basic Information Time seen: Date & time 01/29/2022 20:32:00, Without distress, ambulation without assistance, checking out the ER as walked in. . History source: Patient. Arrival mode: Private vehicle, walking. History limitation: None. History of Present Illness The patient presents with This patient presents to the emergency room for evaluation of increasing tenderness to a left breast lesion, over the past couple days. She states she has had a very tiny area there for years and she used to squeeze it and material would be expressed and it would go away and then it slowly come back and she would really express it, then go away and she states now she is , and she states she has noticed that is gotten a little more swollen and and then the last several days got little bit tender, and there is slight erythema to the skin. She has not had this irritation in the past. Is never been drained, she has no other problems. No fever, no problems, she has a single child, and is around 16 weeks . Not a diabetic, no history of cardiac valvular disorders, no history of synthetic joints, she not a smoker, she here with her , she has a little girl with her here today 2. She is just concerned that being she wants to make sure this is okay, her had an infected cyst on his left shoulder number years ago, got quite large, she states she has never had MRSA before. She denies any sore throat cough congestion fever chills nausea vomiting diarrhea. She seen in room #6, seen in the presence of her , seen in the presence of her little girl, and the all very cooperative and pleasant. That she is got a sebaceous cyst which is about 2 cm when you get around to it including the subcutaneous tissue around this which is in the left medial breast, its not adherent to the skin, it does not not demonstrate any skin retractions, there is no pointing to it, it is fairly deep, it is not significantly tender, and it does not require an I&D procedure at this time. The remainder of her exam is excellent, HEENT exam is normal, no anterior posterior axillary nodes, her lungs are clear, there is no expiratory wheeze or rales Chest motion her heart rate and rhythm is regular no murmur, and her abdomen is soft, she denies any vaginal related or related issues. The skin is very slightly erythematous around this which I have a feeling is may be from manipulation we will put her on some clindamycin which is okay during , will take care of staff, will take care of MRSA, will take care of strep, and warm compresses, I told him they can call me down here if there is an issue, and return as necessary to the department if this flares up but otherwise to follow-up with their family doctor or their WORKERS COMPENSATION CLAIMS ADJUSTER doctor. To this they agreed.. Health Status Allergies: Allergic Reactions (Selected) Unknown Penicillins- No reactions were documented. Sulfa drugs- No reactions were documented.. Medications: (Selected) Prescriptions Prescribed Quantitative beta-hCG: See Instructions, Quantitative beta-hCG. Please call or fax results to Dr. Ortiz's office, 1 box(es), 0 Refill(s) Documented Medications Documented Multivitamins with Vitamin B Complex, Vitamin C, Minerals and L-Methylfolate oral capsule...: 1 cap(s), PO, Daily, 0 Refill(s). Past Medical/ Family/ Social History Medical history: No active or resolved past medical history items have been selected or recorded.. Surgical history: No active procedure history items have been selected or recorded.. Family history: No family history items have been selected or recorded.. Social history: Social & Psychosocial Habits Alcohol 11/13/2021 Alcohol Use: Current Frequency: 1-2 times per month Substance Abuse 11/13/2021 Substance use: Current Type: Marijuana Comment: STates smokes week weekly but stopped 5 days ago when she found out she was . - 11/13/2021 16:58 Gracy Joseph RN Tobacco 11/13/2021 Smoking tobacco use: Current everyday tobacco Number used per day: States smokes 1 cig/day Electronic Cigarette/Vaping 11/13/2021 Electronic Cigarette Use: Use, within last 90 days Type: Cannabinoid infused, Flavored only, Nicotine infused Use per Day: 1-25 Inhales/day Comment: States vapes nicotine daily but stopped 5 days ago when she took a test. - 11/13/2021 16:57 Gracy Joseph RN . Problem list: Active Problems (1) No Chronic Problems . Medical Decision Making Orders Launch Orders Pharmacy: clindamycin (Order): 150 mg, PO, Once. Impression and Plan Diagnosis Sebaceous cyst ([id number] L72.3, Discharge, Medical) Plan Condition: Unchanged. Disposition: Discharged: time 01/29/2022 20:59:00. Prescriptions: Launch prescripti (more content not included)... Normal [facility] ED Patient Summaryon 022 ED Patient Summary [facility] - Emergency Department [address] [place] [address] PATIENT DISCHARGE INSTRUCTIONS Patient Information Name: ZULEIKA WYATT Age: 31 Years Date of : 1990 Reason For Visit: Rash; Medical problem - minor; POSS BODY INFECTION Arrival Time: 01/29/2022 20:27:46 Primary Care Physician: Andie Stoddard Attending Physician: Johnson Wright DO Comment: Visit Diagnosis: Diagnoses This Visit Medical problem - minor ([id number]) Rash ([id number]) Sebaceous cyst (L72.3) The Pharmacy at [facility] is open Saturday through Saturday from 9A to 6P and Saturday and Saturday from 9A to 5P Prescription Information: If you have been given a prescription for narcotics, seek immediate medical attention if you have any difficulty breathing or any sudden status changes such as confusion and sleepiness. If you or anyone you know is experiencing suicidal thoughts, mental health, alcohol and/or drug addiction problems; contact the [facility] 07/01 Crisis Hotline -Text 0CQHB ld 316103. If you received any narcotics, sedation, or any other medication that causes drowsiness for the next 24 hours, unless otherwise directed: ? Do not drive a car. ? Do not operate machinery such as power tools, lawn mowers, drills, sewing machines, or stoves ? Avoid alcoholic beverages and drugs for allergies, nerves, or sleep ? Do not make important personal or business decisions or sign any legal documents With: Address: When: Andie Wyatt [address] [address] Business (1) Within 3 to 5 days Comments: home warm compresses clindamycin for antibioitic see your ob, or Dr Wyatt, for recheck apt ----at some point, this might have to be removed; this is not cancer, but a retention cyst of fat material; Return if very red and tender, or fever, vomiting worse You are welcomed to return anytime. Call Dr Wright, ext [phone], if any question patric WRIGHT< ER PHYSICIAN< H B [facility] Medication Information: The exam and treatment you received today in the [facility] Emergency Department were for an urgent problem and are not intended as complete care. It is important for you to follow up with a doctor, nurse practitioner, or physician?s social human services assistants for ongoing care. If your symptoms become worse or you do not improve as expected and you are unable to reach your usual health care provider, you should return to the Emergency Department, we are available 24 hours a day. For those patients who have received Radiology results, the interpretation of your X-ray as given to you by our Emergency Department physician is only a preliminary report. The Radiologist will review your films and if there is a change in the diagnosis you will be notified by phone. Please make sure you have provided a working phone number so we can reach you if necessary. In the event that you had a lab culture while you were a patient in the Emergency Department, you will be notified by phone if there is a need to change your antibiotic. Please make sure you have provided a working phone number so we can reach you if necessary. [facility] Emergency Department has provided you with a complete list of medications post discharge. Please inform your gun tester/provider of your visit and for further instruction on these medications. Any specific questions regarding your chronic medications and dosages should be discussed with your primary care physician(s) and/or pharmacist. New Medications Printed Prescriptions clindamycin (clindamycin 150 mg oral capsule) 1 cap(s) Oral 3 times a day for 5 Days. Refills: 0. Medications to Continue That Have Not Changed Other Medications Misc Prescription (Quantitative beta-hCG) Quantitative beta-hCG. Please call or fax results to Dr. Ortiz's office. Refills: 0. multivitamin, ( Multivitamins with Vitamin B Complex, Vitamin C, Minerals and L-Methylfolate oral capsule) 1 cap(s) Oral every day. ondansetron (ondansetron 4 mg oral tablet, disintegrating) 1 tab(s) Oral once as needed as needed for nausea/vomiting. Visit Information Allergies: Substance Reaction Symptoms Type Comments penicillins Drug sulfa drugs Drug Vital Signs: Vitals and Measurements this Visit (last charted value for your 01/29/2022 visit) Vital Signs This Visit Temperature Temporal: 37 DegC Peripheral Pulse Rate: 76 bpm Respiratory Rate: 16 br/min Systolic Blood Pressure: 114 mmHg Diastolic Blood Pressure: 77 mmHg SpO2: 100 % Oxygen Therapy: Room air Measurements This Visit Height/Length Dosin.100 cm Height/Length Estimated: 165.100 cm Weight Dosin.500 kg Weight Estimated: 63.500 kg Problems List: Problem Onset Comments No Problems found Patient Education Epidermoid Cyst (more content not included)... Normal [facility] TYPE AND SCREENon 12-30-2021 TYPE AND SCREEN Antibody Screen [facility] Blood Bank Notes performed by CV on 12/26/2021 ABO Rh Typing A Rh Positive Blood Bank Notes performed by CV on 12/26/2021 Normal [facility] Comment on above: Performed By: #### R UBIGG #### [facility] [address] [place] [address] Dr. Juan Antonio Ibarra HEP B SURFACE ANTIGEN SCREEN on 12-28-2021 HBsAg Screen Negative Normal Negative [facility] Comment on above: Performed By: #### H BSANS #### [facility] [address] [place] [address] Dr. Juan Antonio Ibarra HEPATITIS C VIRUS AB W/ REFL EX QUANTon 12-28-2021 HCV AB 0.2 s/co ratio Normal 0.0-0.9 [facility] Comment on above: Performed By: #### A 1C #### [facility] [address] [place] [address] Dr. Juan Antonio Ibarra Interpretation: Comment Normal [facility] Comment on above: Result Comment: Nega tive Not infected with HCV, unless recent infection is suspected or other evidence exists to indicate HCV infection. Performed By: #### A 1C #### [facility] [address] [place] [address] Dr. Juan Antonio Ibarra HIV 1 AND 2 WITH REFLEXon HIV Screen 4th Generation wRfx Non-Reactive Normal Non Reactive [facility] Comment on above: Result Comment: HIV Negative HIV-1/HIV-2 antibodies and HIV-1 p24 antigen were NOT detected. There is no laboratory evidence of HIV infection. Performed By: #### R UBIGG #### [facility] [address] [place] [address] Dr. Juan Antonio Ibarra RPR QUANTon 12-28-2021 Rapid Plasma Reagin, Quant Non-Reactive Normal NonRea<1:1 [facility] Comment on above: Result Comment: Plea se Note: This test does not meet current guidelines for screening and diagnosis of syphilis. This test is intended for following treatment response in patients being treated for syphilis infection. To screen for syphilis infection, a reflex cascade that includes both RPR and a treponema-specific assay should be utilized, such as Treponema pallidum (Syphilis) Screening [place] (615038) or Rapid Plasma Reagin (RPR) Test With Reflex to Quantitative RPR and Confirmatory Treponema pallidum Antibodies (252239). Performed By: #### R PRQ #### [facility] [address] [place] [address] Dr. Juan Antonio Ibarra RUBELLA AB IGGon 12-28-2021 Rubella Antibodies, IgG 3.48 index Normal Immune >0.99 [facility] Comment on above: Result Comment: Non- immune <0.90 Equivocal 0.90 - 0.99 Immune >0.99 Performed By: #### R UBIGG #### [facility] [address] [place] [address] Dr. Juan Antonio Ibarra CBC AUTO DIFFon 12-26-2021 BASO # 0.0 103/ul Normal 0.0-0.1 [facility] Comment on above: Performed By: #### A 1C #### [facility] [address] [place] [address] Dr. Juan Antonio Ibarra Basophils/100 WBC (Bld) 0.3 % Normal 0.2-2.0 [facility] Comment on above: Performed By: #### A 1C #### [facility] [address] [place] [address] Dr. Juan Antonio Ibarra EO # 0.0 103/ul Normal 0.0-0.7 [facility] Comment on above: Performed By: #### A 1C #### [facility] [address] [place] [address] Dr. Juan Antonio Ibarra Eosinophils/100 WBC (Bld) 0.4 % Critically low 0.9-7.0 [facility] Comment on above: Performed By: #### A 1C #### [facility] [address] [place] [address] Dr. Juan Antonio Ibarra Erythrocyte distribution width (RBC) [Ratio] 13.5 % Normal 11.0-15.0 [facility] Comment on above: Performed By: #### A 1C #### [facility] [address] [place] [address] Dr. Juan Antonio Ibarra Hematocrit (Bld) [Volume fraction] 38.9 % Normal 36.0-48.0 [facility] Comment on above: Performed By: #### A 1C #### [facility] [address] [place] [address] Dr. Juan Antonio Ibarra Hemoglobin (Bld) [Mass/Vol] 12.9 g/dL Normal 12.0-16.0 [facility] Comment on above: Performed By: #### A 1C #### [facility] [address] [place] [address] Dr. Juan Antonio Ibarra IG # 0.03 10e3/ul Normal 0.00-0.03 [facility] Comment on above: Performed By: #### A 1C #### [facility] [address] [place] [address] Dr. Juan Antonio Ibarra IG % 0.3 % Normal 0.0-0.5 [facility] Comment on above: Performed By: #### A 1C #### [facility] [address] [place] [address] Dr. Juan Antonio Ibarra LYMPH # 1.4 103/ul Normal 1.2-3.8 [facility] Comment on above: Performed By: #### A 1C #### [facility] [address] [place] [address] Dr. Juan Antonio Ibarra Lymphocytes/100 WBC (Bld) 14.5 % Critically low 20.5-60.0 [facility] Comment on above: Performed By: #### A 1C #### [facility] [address] [place] [address] Dr. Juan Antonio Ibarra MANUAL DIFF REQ NO Normal [facility] Comment on above: Performed By: #### A 1C #### [facility] [address] [place] [address] Dr. Juan Antonio Ibarra MCH (RBC) [Entitic mass] 29.6 pg Normal 26.7-34.0 [facility] Comment on above: Performed By: #### A 1C #### [facility] [address] [place] [address] Dr. Juan Antonio Ibarra MCHC (RBC) [Mass/Vol] 33.2 g/dL Normal 29.9-35.2 [facility] Comment on above: Performed By: #### A 1C #### [facility] [address] [place] [address] Dr. Juan Antonio Ibarra MCV (RBC) [Entitic vol] 89.2 fL Normal 81.0-99.0 [facility] Comment on above: Performed By: #### A 1C #### [facility] [address] [place] [address] Dr. Juan Antonio Ibarra MONO # 0.5 103/ul Normal 0.3-0.8 [facility] Comment on above: Performed By: #### A 1C #### [facility] [address] [place] [address] Dr. Juan Antonio Ibarra Monocytes/100 WBC (Bld) 4.6 % Normal 1.7-12.0 [facility] Comment on above: Performed By: #### A 1C #### [facility] [address] [place] [address] Dr. Juan Antonio Ibarra NEUT # 7.7 103/ul Critically high 1.4-6.5 [facility] Comment on above: Performed By: #### A 1C #### [facility] [address] [address] [address] Juan Antonio Ibarra Neutrophils/100 WBC (Bld) 79.9 % Critically high 43.0-75.0 [facility] Comment on above: Performed By: #### A 1C #### [facility] [address] [place] [address] Dr. Juan Antonio Ibarra Platelet mean volume (Bld) [Entitic vol] 10.0 fL Normal 9.5-13.5 [facility] Comment on above: Performed By: #### A 1C #### [facility] [address] [place] [address] Dr. Juan Antonio Ibarra PLT 194 103/ul Normal 150-450 [facility] Comment on above: Performed By: #### A 1C #### [facility] [address] [place] [address] Dr. Juan Antonio Ibarra RBC 4.36 106/ul Normal 4.20-5.40 [facility] Comment on above: Performed By: #### A 1C #### [facility] [address] [place] [address] Dr. Juan Antonio Ibarra WBC 9.7 103/ul Normal 4.0-11.0 [facility] Comment on above: Performed By: #### A 1C #### [facility] [address] [place] [address] Dr. Juan Antonio Ibarra CULTURE URINEon 12-26-2021 CULTURE URINE Culture Observations : LIGHT GROWTH OF MIXED GENITAL ALONSO. NO POTENTIAL PATHOGENS SEEN. Normal [facility] Comment on above: Performed By: #### R UBIGG #### [facility] [address] [place] [address] Dr. Juan Antonio Ibarra GLYCOHEMOGLOBIN A1Con 2021 ADA RECOMMENDATION SEE BELOW Normal [facility] Comment on above: Result Comment: ADA RECOMMENDED LIMIT 4.0 - 6.0 ADA THERAPEUTIC TARGET < 7.0 ACTION SUGGESTED > 7.0 Performed By: #### A 1C #### [facility] [address] [place] [address] Dr. Juan Antonio Ibarra Glucose [Mass/Vol] 114 mg/dL Normal [facility] Comment on above: Performed By: #### A 1C #### [facility] [address] [place], [place] [address] Dr. Juan Antonio Ibarra HbA1c (Bld) [Mass fraction] 5.6 % Normal 4.5-6.2 [facility] Comment on above: Performed By: #### A 1C #### [facility] [address] [place], [place] [address] Dr. Juan Antonio Ibarra US PREG TVon 12-07-2021 US PREG TV EXAMINATION: US PREG TV HISTORY: Irregular periods COMPARISON: No relevant comparison available. FINDINGS: GESTATIONAL SAC: Present and normal appearing. POLE: Present and normal appearing. YOLK SAC: Present. CARDIAC: Present. UTERUS: Normal size and appearance. OVARIES: Right: Corpus lutein cyst. Left: Normal. CERVIX: 4.1 cm in length and closed. CUL-DE-SAC: Normal. OTHER: None. AGE BY LMP: 9 weeks, 0 days HUGO BY LMP: 07/12/2022 AGE BY US CRL: 9 weeks, 4 days HUGO BY US CRL: 07/08/2022 IMPRESSION: 1. Single live intrauterine . Electronically authenticated by: FELECIA GOLDMAN Date: 2021-12-07 16:59 Normal [facility] Coding Summaryon 11-21-2021 Coding Summary HTMLBase 64 EymolzofJPk6cCz+PGhlYWQ+PE 0DISNzB67daNLciQ3CI5hMWB2G QWVGGWQRAB4TBO2mtUE2VWpiG5 VybiAv SgludQHbJW62LKi9PNB3mTwuBS jmiD3quBRsC6l3LdSrCE08rU72 HFyaLGPzVjG9RxEhggnzbYBt Y1mfDdNraDEhIlh+PHRhYmxlIH kkPJQjOVdpIAAiYwDizCjdNX3v Vy8kWPAkMNVnaFnixTWdQoUy r8prQMKlLCkaRU9zwHwvR9VtyD M1NYMrm9j4Wo51qMT+PHRkIHN0 lKeiIZvdt027BwSnm0ooDZA1 sRJmDZwfKAW6N63ad0R3NNCjBW JdEZX2tAB5jB7vfPkvmgjmP0Go pYXxMuK0EDW1pPEdfO2oqMkx bmrngG6dYzd+U07ZEQ2VDCFUCL 4SXeq2L0EsAixwhBI+UY02CUHq KQ00aJNftMUej0zxoZr2BkCk QDWgJXB0zQirGKekc2WbQZIjP3 8buMCtj7P1GNEmzZqknVRqWyCj oLB5wN0bVRqetnkem8olflib Kyvis9yulc84qN78H68zGBacCJ HhOLV5GYWaPNFtxIqcar1hyR7k Ii8+KMfob2nvx3rrfLv0LiPa WRDxugUfiOspOHX0n9QiCt88P5 XtgPlnc3XlYlj9hd62oGVii1N3 kIA1WVcgDERskF7uZLbxGzG9 VFQqVhHrvX99vYVkSSrcRp9hvE hobPiyLB5aZSCuwupeVWNhkQ0q AHCjhAOvbHwmCC4bVXMrhgof r485AkDsKZB4EIGyhMAdQ3RqoM 6mPzIeLDBbKUTjP8OnjQAmDJzm M026PGgxFaC1GIVfqoTtW4Tb KBAmvDvcOmW9d1O6We6Mj4Lpcy dbQMQ2PYwrFLZ9GcW9ZqKdQxX6 M6GdJmd2UCUkfFzwCD0mQ9Do CGTqrkbwxeasuYD7FZFjZJTywB 21rABlNQmvLv3vi0B4u711HLOv IJMvdH08Hj8jkJaeRRQstYZF hG9gythdp4gahsfzPbJdPTYrPJ t4JKo9JQNcmKatUeBjWKB8HlM3 RHW4dPIlgF4fzRnlkntmcS2d Oyc+H47twR6gLSZ6HML7oplnNO QcibPtLA02DH85W2TuPhcaqVPa bGU+NWZbdfLzwVdjCA4gTzHm e7kcf5TkDYubE2JlJRQeVBpuUw q9BYQmKPC8wNY7kR0fOUGtLWdk u2V3nTX1W7WudnSsyq0zp1ev UKOfJSemL38clGJnm2D2NUHqdH H2MAKhxRzfIfGdoC90Bat+PGNv iTktm4SpGykur4dbt3pkhXx8 AzIkGJUzdeLgoXpdTLE3t4SjLt 07N80lRConYWNzKFFmLHPwNZHd qKuxbo8pgF3kCe9+PGNvbCB3 hFB2zG9hFKXuKwI2MEnvL423Ms ExzGHxLtfde4pzy3ceeXi5VuBk SCXngtQzpKyjRDO1n1MqUb72 A91uGXunQZVfKBRkDTIhAWNvqF tyta0eeM6yDz4+RR8jn0knak29 vQ75eIY+QLSnIOS6wCuuHGji DHWbsO2cRFryOpI9OBMoOzStcP 94rGAkELjzDs9reXbwrPvbAU3v YJTrufcgk172XxDof7orXOGd eVCbKVtqIGF4B21wc3G0OIKuBQ SyWKK5yKM1rS8zoLhcmexsuEWk bTfeaaQgvQywQEsqNLquJ609 IHRvcDsnPlBhdGllbnQgTmFtZT x1M0DeTmx8KVBrfNpjML2lpHGa TOokBa3spNdfpVtkIB2sCKQp pdywo433StHwb1ogDEVvyHRtVR dbFFL7P70hn8W9AWRrDLMuLRZ8 kIM4qV1umKhqctpvaWIulMgo djBssKczZBxfCGcfP881YDFvwH paYeVcweKiIPWxdAQ3FR36EF42 oYMdn3M3bXA6A9SqPVGmjojt jifmsRF0XYKeFQYqeF69Re1ohZ laQs0iCTGdTVN2JJQxrOYeJ1Cl nC7hExFtZDStCVHyX9CqeDMi QGymX578ZQqyWjM6QNPkyhYgX6 MwCENnfGxcMuU4i5P9Bb3ZV6I1 JU78TB48nXEkw7B5wSV3P6Ip BHNbwesztxnsoKO3YINsPQPsmX 83Cq0giClkXe0wKVOaIHR2ZIIb sDFyB7RirB5dPbUgVZQzNVYb M3GbqRHuIMvnT424CWwqPmQ2IS NkkjRmR7WuQPSlaMsqGsY4g9Z4 Sd6ADFy9US60SM91wHJfe7E0 mPQ5C0WrQXOlwlynlcjfxWN6CI AqIXRgoR68Lo9ihDsyBp5dTOXt YLY7IJYjcSOgD0DimM6rWmLu IYMbQUYjS1LngAUgPShkY532LA joPnJ9EQDzgpMfT9ZcQGPozDhx YiJ6m4H4Qe1INHZvGQ20VDP4 fTY3EH18HQ19V0KkPouqpFHocN U+PHRhYmxlIHdpZHRoPScxMDAl XuLkcTpaHE8fQa2mYZWmQGBf nOkukVNpQvUhm9jtAOVpHGooRZ 6ycRhfY4IvhYO2OMVms2p2Od40 I67sP9VpqOM+YBBsvTQ4oUV7 jY2rOqVcAbB6KTrkA373IfRepK CbUjzqr6aje5jeqZe3AsU1TJSv hnDupWxiIJO1x3SoMq44T18i IHdpZHRoPSIxNSUiIHZhbGlnbj 9hqM8fOe7+GMRorGJ9jEF1bL8t TyRsZvB7ITlpM092DiHhbJUb Doays1ywc0qgrXw4TsDjOTQeeb DqfYabVSK4s1DxYx28M5XwcBcv o0HfGsy0ht71rUNbp8U7nQT1 K8InHJXtuysftNAbaLhsOS5xIG JrvvziNPEpjF3uIHKaF1x7NwMv SwW6CBhkV6ReetP7PJZitSAg FNtlTWG4E57qh7O9NKFzYVPiGE G1rOQ7jK9cmGqgpzjsaVZhfOhw wgDxpUlgYNdeANeaW655SGFd lNliZGNgzR7cCAVvwYPwnBilIR 4wNTBpbjsnPlNURUlOLCBWSVJH IF4MVSDXWRX8I3GdOdr3COVl wHcrUW5mvTFlVXscIj0brJsutP odZH9bYALbjfruQVSfoX5xXAHi oEKdbQkqPW6xFXXdcbpmn409 FoDdETJ6SDAucCZvJ3MaxT6yNc KdORJiYVMhU6EhsTTvMPbzB914 LQtmZdO2GAByuoExG3CqRMZs fJnjEdD6r4T3Zj3vLE1mYF7oCX rpVC11QF89gDJir4C8uEV9F9Mx YMRaywkrvxzkhAN2DGTuTLLb mN79kKMrFTvqLy5qa3J4f519NN UzDKVptY80Qn7mtHtuDFRutPOP sI4jwvuod4tlbnozSoNwMTIu SMr7TSh6CGRwpZmmRsIyLNC2Tj A4PCN3mADjwQ6isJkdfqjsxG4z Oyc+RqmzWOLewyF6H6FlLvm2 FGHriIilRB7tyMXpUDggSy3ccR tmcFjsIJ0gPAXhafhgFPBbsX8m JAFwvZYhxGgvZZ7tVBEsrpnr a278PjEdXMY4BVViiNNxU7YfpI 1yGuHeMMVaWSKhH6QcfOPvFYhp V960DEdbBxI7NELzmcTjF9Ys SBPfcDhuJyU4s8K4Wn3JND5BTP H6D5VpGmw1CPBevEdkUV8bwORc UIvcMz9atGpriSmgCX9bKVVg nwirDOMpmP6aANPpuRKwsVszBZ 2kXRMaoaszo145NvHuKLJ3IRYx aAYrX7SqpL5cVdSyITKsAQNv J7WuhPRhFXmtR204EGzwPuW8KL QiaiBlA2LfMMWnuUlyGhM0u3L6 Dl6ZGEgotGR+QY25ye39S0Nq TeksFka7IRDmPES6qVD7yD0zGI CjLMydo9P9kBP2X8BdmnNhkd4a t0rlUXXuPOfdM37huMZzf4A7 HHVdbVX0RWTbnYmwDlHqlS17Nv c+KCExnXnac5ByXcnku9bja6tk oPl8MlUuDVWgvaLyiVjsGRJ7 j1ItKy46G04xZMdgWSKiOAReRI XcPUFheUvitr0fjZ6cCs4+PGNv dWY1hXC2qN6jPqVdArL3YJdy R794TbIjzECzHrayw1ekv7pzuR o5BgTjWREcgsNxnEfxGHR0r7Up Sd83U1ChcEcrk8LeZty3rd19 qPDmq2H9yGX5Y2PdWXSnmipzyS MowCanRV9cMXTvlnsqTLYgiC8n GVAwZ7z4NmGcKcX4PFaiZ3Ml wjQ7HLRcgYOqKXDjuGRBcN1zav ctx0siggxaJlWtKTUlKSj7TRf3 EVLssUvhDyKnRCB2VnA8UVZ4 iXFqzI7tnFqbblthmA0hFwf+UG q1p4ulgZYyKQ8shQV1AS72KY66 zLBgl8F5bTW9S7QaEFTzfpie nnhslNJ2MEZpGWQqrA26Yj7nlW umQf9mWMZgDLP8ZKEadUWeL9Pn rO5aZuZwXGQcKMYqZ4VseJJb MCtzK966DNthIqQ1RBClspTiG9 QuCBHhjDskChU2r9Y0Lx1OWL14 KQ39ZK25fPIwb6B0uTR1G5Wg TAOlsdxtmhsykZM7RMCeZDNpuK 95Gl4wdFikLo8uMUKlZWJ9BHFf iBAhZ3RzfR0tUoQfEKUtMSIb B1ZnvULaDNweF483PFzxJzQ5QA FxmyDkQ1JgENKnoAywRvM7c0U9 Fe3ATb20NV47XK75xLIvm9P4 nTU1H8UsHUXeskzossxakBQ5KB GcVHCpcX44Nt2rfGugKe5aYERy FNR6WFDrpJJvN2GuvI7bAyVj VNVdDORkX4CzqCQdSKbwI312XX ghDuB8MQMfmmLoJ9MwDWVtsGwb XfM0x7N9Ye9VJAqbyvt1D1Iw PjwvdHI+MF94OHXmGW94zGKcmG Qsw5kxvNi8AqLdCLYfGKX4mKfi ACiql5SqTBGjL79wwPPey0S9 IGN (more content not included)... [facility] Coding Summary HTMLBase 64 TfdzzlbcOEp1vRv+PGhlYWQ+PE 9ORHEiG30pwASioS7KL0jOGS8U VWEXKBIYSU1JCH1onFJ9WUygP6 VybiAv PgcfhYEbIG56XTy8HLD9jJbzKU lnbP9rlANoZ6i5NxNuIG81eY01 JIyyGZLpCyO9KkCnmnlgaJGl Q2qlDgYerSSmYwc+PHRhYmxlIH sbEQXaJYjtMPFaLbRgkJeaJO0z Ta8pXWRbXWEnoMwnbFEaVbWh v9lrRWJbOUtzIO7nbSsfZ4IebE C4SGDhd2j1Kc31oSW+PHRkIHN0 hJilOHelj693LjUjo9dgJAF3 dIEoQVjoZBN6B85xe0B8PZOePZ EwLIV5gDL8pQ4eyBmvovqnU7Vz yYWhIkU7URO5fWAdyF9hjKoa iiwkvO5tUbj+R53DOP2UUGSDFC 8ODzw1X5SeUrsbeND+LV20LGFh ZX30tOQdmUOno3uirIp3JhHz MFGzTOD7qVxvDNqjk0ZmDTPpW0 1uiHIjm9C3JQMlaPmfpCGxUkRh mBB0zM5iPCgevqwfa7enqwqq Izcwl6iqtg06hN30F01dBGfhUA BaYSV4ZZFpTTHueDuztg9osG9c Ii8+BIfqo4rxb7jwrVa0UqSp GIIythOcuThrAWD8v9VtPo75B3 LojJvvk8RxTuc8ha52zOXrp7T7 gVK6ADeuLRXllW4tJVqyMpT2 MTVzVyMptF60eZFuMChgIt2fyZ sooIbjCX1tPCOcocklZBKjcM4o UPInfGPmcXyiDG5uEOOouoww m817SoNdCKL8SFSdzKHeY5ZpoD 9lCnEvBYLvAWClP9CxdLUyRCyq N913MObmYmI1TZTizgNdQ0Bc KLQbyEukWeU0n5A9By0Eq9Vihp rqING7IPjkKIU5ZdJ7KtCpArI0 J8RkGpu3SXHmpCjyPI5sM8Gw OCBjcmkmftwkpKD0NCPlURUlbT 87cFCfLGtdRv8lz4S8e714YWPu QHDglM84Me1quEqhLWLzyFUJ iU0bshvbn8vhxxaiEqAmVCNmZC n5MSs6YBKluZcsIzQxFCH8KeP8 WIJ0fFYfyR4mpEdmywpkcL1b Oyc+O92tfY8dBYS4VOQ6vxemVD UitiMkVH99CS56N2SsZphytYMc bGU+KBZpqyPccEhcHQ0oOmRp y1zhh6UpSEldW5AfBXPiSKguTb v7SXVpWEQ3hRM7rE0cIEPgUImz n8N2jTO1V8CnsrMfaz8xk2et MERaXPzwD14ltEXgd4A3MDIggV S6JZDhhGpzCkVvjQ40Eac+PGNv fWuht2TlKggib2axf1pamBm6 PaErNICaihIvrUbmQZH7x5SwHe 36X92wJXndESTmRLWqFIRkVXAs rSdqyi8ovW0hLz5+PGNvbCB3 yYT8nH0oFRGpYtS9ASeaZ571Bm CvnAHbAjeen0yuk7smcDv7HlOa QWQcgnUfbTqdPRW1z4XjJq83 Q42dAAytPEFqECNdVIShHHJlyK nsau2loR1wBp4+FR8zx8fnee78 vG37pZR+NCSnVHP8oJtrTNwv IDTidN1hVTxeWjE4HBXsCoKpaK 26bAFoIRauPy9ozZumeYhbUX0m IVJhhaaro986VfDvt2zwUETw cNQrTSalRUY9D49re8W8YTLjVM AjXWV4bUK0qA6rmPrdoeaiwZAf jUiyloNsgIjnFSjxBYcsJ080 IHRvcDsnPlBhdGllbnQgTmFtZT x7F1InArq7GMQzkRdzJV3abOQn SHihPz4llCgbdLfoAY3oXZGb wmyct968CrPpc1rzONGreMIyCW orKFO1I57ua6Q4ZZQdJJUhOEW6 kDH3sB4cgBospmvlaTNfeZxs aeCgtVriWHhcUWatW033IKFrkP urWiNuexUbEISaoKJ6NG44PW14 tTCob0N1yEX1W2FeMPQyxyws tecswTW9PATgOXXgwB79Am0itD azRu7gNNWoAFC6TXHkvSVtK1Kj iF1vIeAzBGHoMVPsQ9EgkBKm RIoqJ120WKqbVwO5VOUqliOwA1 YqLULfcAgoDjR0s0Y7Jz9EJ6U8 OR85UG84eZGlk6I5yKY3F9Zz PFHbuupcsdpycSS9WICoAAGyoI 19Rj7ugPnbRx7zOCWiGSK3IMNd rQIwA0FjfS6jGgQmDSXfEVGu C0CgfFYcJKgaN145QKckTlN1AR TcjbScJ8CxDMLgoZwdJnU4s4O5 Te1GMDy7XV12CA18rKYik6R3 fXP6L9JrRELqvgiplvlhjWP0YL EvUHUqyV31Nj6pxXtfGp6dKNXp ZSQ1BLUthCFeG9LvwA0oNvBf VXYhHJRyE3VtfXJkCAvkT273SD fyErQ6FCEzvzGoA4UpNNMmaDgv FqP3g2H7Sn8DIAHeHT06YDE6 gSU6UD97OT13Z0ZqGrjfsYZveL U+PHRhYmxlIHdpZHRoPScxMDAl VtKryCuyLF0uUh1xNDFtSCKr hIcmzSRoKaNsl2twDORoEIjgBI 5mdSpoH0KxbEY0IVHgb6d9Zo30 C11pZ5RdjIM+SVJwxPU2ySA3 xX8dBxOcWbS4QZguF578YtMhkF DaMicbt9qmm2doqGe7XrA2OGMh uyGkjLjoWSO6x3CzXh62Z12n IHdpZHRoPSIxNSUiIHZhbGlnbj 6xxP4pVi2+QFEmyNP3gIE4vP7y ExAeKaE6JAwfZ965MaQieYJn Ejkoy8dfs1hrkFo0MmJcOSEwau GodHxlFSV1p2NuPg58K1WusYxe t3NnLso4lm91sVGwt8P9qAH9 P6MnVWZmpbbgpPNuzFqwYW1aPI BtafhhAYNiuW9kCMRvH0g6TySn VuA2OJazM6YjgwJ6YWTblGOf JJyvDSH4C30nk8D4KSHcQIGsYE H3aDY7vP0zaNextubdnXNleVmx utPbeBolQFoeXTsxS996BOLs cKskJLYjzD9jEDYwbOUbnBexKH 4wNTBpbjsnPlNURUlOLCBWSVJH EU8SNSVHGXE6T2YlAct0ISQq lMyfJJ3geITtHBvbHf1gsWanxQ blDP0wNNEgzsdoFLBziT0rMUVa hPZgfVqfTV1wXPYeszfdz325 XkBaHSK6KEInaAEfH6CmtH8gKs OrTUDuETUhE1QerZEyWJnuA948 OGtrBrB2QQFqqwNxP0ExEUNi nHrpBkY4t3O5Az6rKA9dME6lRB myWL51FH92jJPfv0X0aTX3F7Qc DHJtqnsgbvrdoGR0JLSlJTSq kQ47vUMaEQneBj6iq9E3n054HA XvZLVhwN26Az9zyMpvCYRbuNRE jF3zkrsvw3btujylVbChUXHt SMx5LOg3DGXveOocEnWxZAU0Pv F0YLT6gERibG4dkTqwdqkvfU6h Oyc+ZlpdIONigpV2U7AvLkc5 KYKfvVxwSR9fwZNiPJleHu3uoP yjaXkaUG2qTRFldbyzBJVcsY5v WWPkvPSsoEpiDN1kHHCucuax o514VbEpFPR3ELEyoJZxV7FciL 6hIoTkROZpYMWhA6LbbNLhRSqo C046YGtoUzN1ZFHmatPrZ8Ow HEAghItrFlH7f6S0Bd0PWQ0VRE M7X2CfKur0SASxeXzqDZ4yeLAm JYpnSc5nrRzatNejFN8zAVLi zyzhAVZknX0lSXInnTJqmCbuMN 6hXNWmfxfwr336JmKtZAS6BEJf zBPsW9EgiO0uXiIfCHXnLKWy A5RofQMuXUjbV105PFfuMuZ7HT MhwnCeW7ObHKYzmFzlWwG6w6R9 Io8QuCJbR8ChE8q2D4SkWnxm dHI+YR42UTNsVQ31hKEjxUHzn0 vigYv5ZaBkLTRcFXZ6zXgmJAep u2ApBGZzZ34zsGYwj5X5GAGi eZbsaYNdXjHufEW4dP8gBCsdmr vkz6jzwmtsNdgyr1qmom42pN59 R82fLGupDAUeHGRtVDHcHLUw lSftuo0zgW7wBb2+JWEkjVP6fK V7bN3dIxAxQdF8OJlwS891DjRw xLNsRxyxs7rxs5oxeVg8BiYy YSHbkmJpmKojSYL3a5GcAy43J2 9sIHdpZHRoPSIyMCUiIHZhbGln xq7rdW2yAx5+KU0ca0yzsr05 tX07pBI+TQWzBPB3jEahKIpxDO CxjO4kOPoeCuV5JVWqDrBibT99 fKGbEUlgOe2uaVxreRymDE4n JMGuwgwrp950EzAsj9psEJWbaW OnUFojORN0D10cl7V1TBRgWWIb UMP6sTZ0yI3twTieyxghbOEo sEtyioJfpFlpDVbdIWsvK646OL EueClwVgJibNPtO2jzzyMPXK1c OjwvdGQ+GJTeGGL3gFcmFBpv EQJvhG8kTOTyI1e3RcUaReR7OZ htR8MxnwA0ICSmiXXjJOJtjLBL vM1tyasox8hhitgcMfScTPIz LJo3CVo2GGLcdQklVqLdFGE0Cw W7OGT2kPNqyI9pnFukaifpfG7v Oyc+RklOOjwvdGQ+PHRkIHN0 yDvzTXumLJStvJ4sSUArH5h2Dn EqPyE0PVhoH6AwdpY0AVEzcURp RYNlqXOMbB4rdvfhw9bgpobj XaKyALXjCHk9JTo3DXUrtDebBe DuDPM5VuC5WIJ7rRDnvV8dhDwq nemntV6pHmu+TVJOOjwvdGQ+ KTQbQRM3hXfzLIqzWWPkeU0wFT YaJ6s0GjBcXjK6KZoiO1SbsdL9 DPOvkZKpYEMblDPChM2mnlvu h5ldurtjXiLpASZsZLq7FTg7BU TuoHtwRqLrHPF9MlW5DUU1pVEm rQ9hdGcjzmretT3sQkv+UGF5 IKG4KJ25KB42R7FeVarstQJipB U+PHRhYmxlIHdpZHRoPScxMDAl BqTwgJetWS8cNe2hCZVbVVRv bGx (more content not included)... Normal [facility] ED Clinical Summaryon 2021 ED Clinical Summary [facility] - Emergency Department [address] [place] [address] [id number] ED Clinical Summary PERSON INFORMATION Name: ZUELIKA WYATT NORRIS Age: 31 Years Sex: FEMALE : 1990 MRN: Acct#: Visit Reason: Rib/trunk pain-swelling; ABD PAIN Arrival: 11/13/2021 16:30:24 Discharge: 11/13/2021 18:01:00 LOS: 000 01:31 Check In: 11/13/2021 16:30:24 Checkout:11/13/2021 18:01:00 Address: [address] [place] [address] [address] [place] [address] PCP: Andie Stoddard PROVIDER INFORMATION Provider Role Assigned Unassigned Johnson De Santiago ED PA 11/13/2021 16:34:49 Alfreda RN, [facility] ED Nurse 11/13/2021 16:34:57 VITALS INFORMATION Vital Sign Triage Latest Temperature Tympanic Temperature Temporal Artery Pulse Rate 94 bpm 94 bpm O2 Sat 99 % 99 % Respiratory Rate 18 br/min 18 br/min Blood Pressure /89 mmHg /89 mmHg MEDICAL INFORMATION Medications Given: Allergy Information: sulfa drugs; penicillins PHYSICIAN DOCUMENTATION DISCHARGE INFORMATION: Discharge Disposition: Home Discharge Location: Home PATIENT EDUCATION INFORMATION Instructions: Hypertension, Adult Follow-Up: With: Address: When: [address] [place] [address] Within 1 to 2 days Comments: Diagnosis is history of abdominal pain, at a early stage, elevated blood pressure reading. From history, report that your 5 weeks gestation, and had a couple episodes of abdominal cramping that lasted less than 1 minute. Not having any vaginal bleeding, nausea or vomiting. We obtained a quantitative beta-hCG G, which is a lab that we can follow to show development of the fetus. I also provided you a prescription for a repeat test in 3 days. I provided you a prescription for this. You can take this to any hospital laboratory. I asked that the results be sent to Dr. Ortiz, your WORKERS COMPENSATION CLAIMS ADJUSTER physician. She will contact his office tomorrow and follow-up with him as per his instructions, you may also discuss with him your elevated blood pressure, or follow-up with your own primary care provider for reevaluation. Provided you information on these diagnoses. As discussed return to an emergency department, for worsening abdominal pain or cramping symptoms, onset of vaginal bleeding, shortness of breath, chest pain, any questions may return anytime. DIAGNOSIS: 1:History of abdominal pain; 2: at early stage; 3:Elevated blood pressure reading Patient Understands: Yes - Patient/family/caregiver verbalizes understanding of instructions given Comment: [facility] ED Note-Nursingon 11-13-2021 ED Note-Nursing pt arrives to ED wit h intermittent pain in her left lower ribs. Pt is approx 5 weeks and 4 days . Pt states she took an at home test 4 days ago. Pt has no vaginal pain or cramping. Pt has no vaginal bleeding. Pt states she is concerned because she had a miscarriage about 2 years ago. Pt has no lower abdominal pain or discomfort. PT has no issues with bowel or bladder. PT able to walk from waiting room to room 6 with steady gait and no assistance. [facility] ED Patient Summaryon 022 ED Patient Summary [facility] - Emergency Department [address] [place] [id number] PATIENT DISCHARGE INSTRUCTIONS Patient Information Name: ZULEIKA WYATT Age: 31 Years Date of : 1990 Reason For Visit: Rib/trunk pain-swelling; ABD PAIN Arrival Time: 11/13/2021 16:30:24 Primary Care Physician: Andie Stoddard Attending Physician: Gamaliel Wyman MD Comment: Visit Diagnosis: Diagnoses This Visit Elevated blood pressure reading (R03.0) History of abdominal pain (Z87.898) at early stage (Z34.90) Rib/trunk pain-swelling ([id number]) Prescription Information: If you have been given a prescription for narcotics, seek immediate medical attention if you have any difficulty breathing or any sudden status changes such as confusion and sleepiness. If you or anyone you know is experiencing suicidal thoughts, mental health, alcohol and/or drug addiction problems; contact the [facility] 07/01 Crisis Hotline -Text 4HYON pf 646150. If you received any narcotics, sedation, or any other medication that causes drowsiness for the next 24 hours, unless otherwise directed: ? Do not drive a car. ? Do not operate machinery such as power tools, lawn mowers, drills, sewing machines, or stoves ? Avoid alcoholic beverages and drugs for allergies, nerves, or sleep ? Do not make important personal or business decisions or sign any legal documents With: Address: When: [address] [place] [address] Within 1 to 2 days Comments: Diagnosis is history of abdominal pain, at a early stage, elevated blood pressure reading. From history, report that your 5 weeks gestation, and had a couple episodes of abdominal cramping that lasted less than 1 minute. Not having any vaginal bleeding, nausea or vomiting. We obtained a quantitative beta-hCG G, which is a lab that we can follow to show development of the fetus. I also provided you a prescription for a repeat test in 3 days. I provided you a prescription for this. You can take this to any hospital laboratory. I asked that the results be sent to Dr. Ortiz, your WORKERS COMPENSATION CLAIMS ADJUSTER physician. She will contact his office tomorrow and follow-up with him as per his instructions, you may also discuss with him your elevated blood pressure, or follow-up with your own primary care provider for reevaluation. Provided you information on these diagnoses. As discussed return to an emergency department, for worsening abdominal pain or cramping symptoms, onset of vaginal bleeding, shortness of breath, chest pain, any questions may return anytime. Medication Information: The exam and treatment you received today in the [facility] Emergency Department were for an urgent problem and are not intended as complete care. It is important for you to follow up with a doctor, nurse practitioner, or physician?s social human services assistants for ongoing care. If your symptoms become worse or you do not improve as expected and you are unable to reach your usual health care provider, you should return to the Emergency Department, we are available 24 hours a day. For those patients who have received Radiology results, the interpretation of your X-ray as given to you by our Emergency Department physician is only a preliminary report. The Radiologist will review your films and if there is a change in the diagnosis you will be notified by phone. Please make sure you have provided a working phone number so we can reach you if necessary. In the event that you had a lab culture while you were a patient in the Emergency Department, you will be notified by phone if there is a need to change your antibiotic. Please make sure you have provided a working phone number so we can reach you if necessary. [facility] Emergency Department has provided you with a complete list of medications post discharge. Please inform your gun tester/provider of your visit and for further instruction on these medications. Any specific questions regarding your chronic medications and dosages should be discussed with your primary care physician(s) and/or pharmacist. New Medications Printed Prescriptions Misc Prescription (Quantitative beta-hCG) Quantitative beta-hCG. Please call or fax results to Dr. Ortiz's office. Refills: 0. Additional medications on your home medication list not specifically addressed. Please contact the ordering physician if you have questions about these medications. multivitamin, ( Multivitamins with Vitamin B Complex, Vitamin C, Minerals and L-Methylfolate oral capsule) 1 cap(s) Oral every day. Visit Information Allergies: Substance Reaction Symptoms Type Comments penicillins Drug sulfa drugs Drug Vital Signs: Vitals and Measurements this Visit (last charted value for your 11/13/2021 visit) Vital Signs This Visit Temperature Temporal: 3 (more content not included)... Normal [facility] hCG Quantitativeon 2 hCG Quantitative 19714.0 mIU/mL High 0.0-0.6 [facility] Comment on above: Order Comment: Lucy whitney call or fax results to Dr. Ortiz's office Result Comment: Resu lt confirmed by dilution Post-Menopausal Reference Range is: 0.1-11.6 mIU/mL Performed By: #### [id number] #### [facility] (DEFAULT) [address] [place] [address] Coding Summary.on 12-19-2018 Coding Summary. CODING DATE: 019 FINAL [facility] STATUS: Left Against Medical Advice PAYOR: Medicaid EAPG DESCRIPTION 0410 URINALYSIS ADMIT DX: REASON FOR VISIT DX: Z32.00 Encounter for test, result unknown FINAL DX: PRINCIPAL: Z53.21 Procedure and treatment not carried out due to patient leaving prior to being seen by health care provider SECONDARY: PYMT PROC EAPG STAT DESCRIPTION DOCTOR NAME DATE NOTE: The code number assigned matches the documented diagnosis and / or procedure in the patient's chart. However, the narrative phrase printed from the coding software may appear abbreviated, or result in slightly different terminology. Coded By: Norah Boykin Date Saved: 12/19/2018 10:35 am Normal [facility] ED Clinical Summaryon 2018 ED Clinical Summary (Inserted Image. Elena ble to display) [place] [id number] ED Clinical Summary Person Information Name: ZULEIKA VILLALTA/[facility] Age: 28 Years : 1990 12:00 AM Sex: Female Language: PCP: Marital Status: Phone: [phone] Visit Id: Visit Reason: Test; MENSTRUAL PROBLEMS Speciality: Acuity: 4 Enc Type: Emergency Med Service: Emergency Arrival: 12/15/2018 4:37 PM Discharge: 12/15/2018 5:57 PM LOS: 000 01:20 Checkin: 12/15/2018 4:37 PM Checkout: 12/15/2018 5:57 PM Dispo Type: Left Without Being Seen EVENTS: Event Name Event Status Request Date/Time Start Date/Time Complete Date/Time Arrive Complete 12/15/2018 4:37 PM 12/15/2018 4:37 PM 12/15/2018 4:37 PM Document Home Meds Request 12/15/2018 4:37 PM Triage Complete 12/15/2018 4:37 PM 12/15/2018 4:47 PM 12/15/2018 4:47 PM Pending Labs Complete 12/15/2018 4:50 PM 12/15/2018 5:18 PM Lab Complete 12/15/2018 4:50 PM 12/15/2018 5:18 PM Urine Collect Complete 12/15/2018 4:50 PM 12/15/2018 5:18 PM Discharge Complete 12/15/2018 5:58 PM 12/15/2018 5:58 PM 12/15/2018 5:58 PM Transfer Complete 12/15/2018 5:58 PM 12/15/2018 5:58 PM 12/15/2018 5:58 PM ADDRESS: [address] [place] [address] [place] [address] [id number] PHYS DOC NOTES: MEDICAL INFORMATION: Prescriptions Given: PATIENT EDUCATION INFORMATION: Instructions: Follow up: DIAGNOSIS: Normal [facility] ED Patient Education Noteon 12-15-2018 ED Patient Education Note Normal [facility] ED Patient Summaryon 019 ED Patient Summary (Inserted Image. Elena ble to display) [address] [address] Patient Discharge Instructions Person Information Name: ZULEIKA VILLALTA Age: 28 Years Arrival Date: 12/15/2018 4:37 PM Discharge Diagnosis: Primary Care Physician: Provider Information Primary Provider: [employer] Operator:None The exam and treatment you received in the Emergency Department were for an urgent problem and are not intended as complete care. It is important that you follow up with a doctor, nurse practitioner, or physician?s social human services assistants for ongoing care. If your symptoms become worse or you do not improve as expected and you are unable to reach your usual health care provider, you should return to the Emergency Department. We are available 24 hours a day. ZULEIKA VILLALTA has been given the following list of patient education materials, prescriptions and follow-up instructions: Follow-up Instructions: In the event that this physician does not participate in your insurance network, please consult with your insurance company to find a nearby participating provider. Patient Education Materials: A MESSAGE TO ALL PATIENTS REGARDING OPIOIDS PRESCRIPTION OPIOIDS: WHAT YOU NEED TO KNOW Prescription opioids can be used to help relieve isklisug-xa-sbhvoo pain and are often prescribed following a surgery or injury, or for certain health conditions. These medications can be an important part of the treatment but also come with serious risks. It is important to work with your healthcare provider to make sure you are getting the safest, most effective care. WHAT ARE THE RISKS AND SIDE EFFECTS OF OPIOID USE? Prescription opioids carry serious risks of addiction and overdose, especially with prolonged use. An opioid overdose, often marked by slowed breathing, can cause sudden . The use of prescription opioids can have a number of side effects as well, even when taken as directed: ? Tolerance?meaning you might need to take more of the medication for the same pain relief ? Physical dependence?meaning you have symptoms of withdrawal when a medication is stopped ? Increased sensitivity to pain ? Constipation ? Nausea, vomiting, and dry mouth ? Sleepiness and dizziness ? Confusion ? Depression ? Low levels of testosterone that can result in lower sex drive, energy, and strength ? Itching and sweating RISKS ARE GREATER WITH: ? History of drug misuse, substance use disorder, or overdose ? Mental health conditions (such as depression or anxiety) ? Sleep apnea ? Older age (65 years and older) ? Avoid alcohol while taking prescription opioids. Also, unless specifically advised by your health care provider, medications to avoid include: ? Benzodiazepines (such as Xanax or Valium) ? Muscle relaxants (such as Soma or Flexeril) ? Hypnotics (such as Ambien or Lunesta) ? Other prescription opioids KNOW YOUR OPTIONS Talk to your health care provider about ways to manage your pain that don?t involve prescription opioids. Some of these options may actually work better and have fewer risks and side effects. Options may include: ? Pain relievers such as acetaminophen, ibuprofen, and naproxen ? Some medication that are also used for depression or seizures ? Physical therapy and exercise ? Cognitive behavioral therapy, a psychological, goal-directed approach, in which patients learn how to modify physical, behavioral, and emotional triggers of pain and stress. IF YOU ARE PRESCRIBED OPIOIDS FOR PAIN: ? Never take opioids in greater amounts or more often than prescribed. ? Follow up with your primary health care provider. o Work together to create a plan on how to manage your pain. o Talk about ways to help manage your pain that don?t involve prescription opioids. o Talk about any and all concerns and side effects. ? Help prevent misuse and abuse o Never sell or share prescription opioids. o Never use another person?s prescription opioids. ? Store prescription opioids in a secure place and out of reach of others (this may include visitors, children, friends, and family). ? Safely dispose of unused prescription opioids: Find your community drug take-back program or your pharmacy mail-back program, or flush them down the toilet, following guidance from the Food and Drug Administration (www.fda.gov/Drugs/Resourc esForYou). ? Visit www.cdc.gov/drugoverdose to learn about the risks of opioids abuse and overdose. ? If you believe you may be struggling with addiction, tell your health occasional caregiver and ask for guidance or call [employer]?S National Helpline at [phone] v Source: [place] Department of Health and Human Services/Center for Disease Control & Prevention [facility] Medications Given: Medication Dose Route No medications found. Medication Information: Comment: Pharmacy Information: Thank you for choosing [facility] Patient Education Materials: JADEN Jacome [place] , have received the following patient education materials/instructions and have verbalized understanding: Patient Education Materials: Follow-up Instructions: Prescriptions: Patient Signature __ Date Clinician/Nurse Signature Date 12/15/18 17:58:10 Normal [facility] Progress Note-Nurseon 2018 Progress Note-Nurse Patient: EDGARDO VILLALTA Age: 28 years Sex: Female : 1990 Associated Diagnoses: None Author: Soha Hess RN Progress Note This RN updated pt on results due to request. Pt stating she wants to leave at this time because all i wanted to know is if I'm or not . RN states she should still be seen by a provider. Pt states she needs to leave to take care of her daughter. Normal [facility] U BetaHcg Qualon 12-15-2018 HCG.beta subunit (U) [Moles/Vol] Negative Normal [facility] Comment on above: Performed By: #### 2 [id number], [id number] #### [facility] [address] [place] [address] UA With Cult Reflexon 2018 Bacteria LM Ql (Urine sed) TRACE Normal Trace [facility] Comment on above: Performed By: #### 2 [id number], [id number] #### [facility] [address] [place] [address] Bilirubin Ql (U) Negative Normal Negative [facility] Comment on above: Performed By: #### 2 [id number], [id number] #### [facility] [address] [place] [address] Clarity (U) CLEAR Normal Clear [facility] Comment on above: Performed By: #### 2 [id number], [id number] #### [facility] [address] [place] [address] Color (U) YELLOW Normal Yellow [facility] Comment on above: Performed By: #### 2 [id number], [id number] #### [facility] [address] [place], [place] [id number] Epithelial cells.squamous LM.HPF (Urine sed) [#/Area] 0-2 Normal 0-2 [facility] Comment on above: Performed By: #### 2 [id number], [id number] #### [facility] [address] [place] [address] Glucose Test strip (U) [Mass/Vol] Negative Normal Negative [facility] Comment on above: Performed By: #### 2 [id number], [id number] #### [facility] [address] [place] [address] Hemoglobin Ql (U) Negative Normal Negative [facility] Comment on above: Performed By: #### 2 [id number], [id number] #### [facility] [address] [place] [address] Ketones (U) [Mass/Vol] Negative Normal Negative [facility] Comment on above: Performed By: #### 2 [id number], [id number] #### [facility] [address] [place] [address] Sumrall.plasma/Sumrall .RBC (Bld) [Mass ratio] 0-3 Normal 0-3 [facility] Comment on above: Performed By: #### 2 [id number], [id number] #### [facility] [address] [place] [address] Nitrite Ql (U) Negative Normal Negative [facility] Comment on above: Performed By: #### 2 [id number], [id number] #### [facility] [address] [place] [address] pH (U) 6.5 [pH] 5.0-9.0 [facility] Comment on above: Performed By: #### 2 [id number], [id number] #### [facility] [address] [place] [address] Protein (U) [Mass/Vol] Negative Normal Negative [facility] Comment on above: Performed By: #### 2 [id number], [id number] #### [facility] [address] [place] [address] Specific gravity (U) [Rel density] 1.010 1.005-1.030 [facility] Comment on above: Performed By: #### 2 [id number], [id number] #### [facility] [address] [place] [address] UA Spec Desc Clean Catch Normal [facility] Comment on above: Performed By: #### 2 [id number], [id number] #### [facility] [address] [place] [address] Urobilinogen Qn (U) 0.2 {Pamela'U}/dL Normal 0.0-1.0 [facility] Comment on above: Performed By: #### 2 [id number], [id number] #### [facility] [address] [place] [address] WBC Auto Ql (U) Negative Normal Negative [facility] Comment on above: Performed By: #### 2 [id number], [id number] #### [facility] [address] [place] [address] WBC LM.HPF (Urine sed) [#/Area] 0-5 Normal 0-5 [facility] Comment on above: Performed By: #### 2 [id number], [id number] #### [facility] [address] [place] [address] Auto Diffon 12-12-2017 Basophils Auto #/vol (Bld) 0.1 E3/mcL Normal 0.0-0.2 [facility] Comment on above: Order Comment: Order Added by Discern Expert. Performed By: #### 2 801506 ####KADEN [address]NtpB[address] [place] [address] Basophils/100 WBC Auto (Bld) 0.9 % Normal 0.0-2.0 [facility] Comment on above: Order Comment: Order Added by Discern Expert. Performed By: #### 2 963885 ####KADEN [address]IgoIttw[address] [place] [address] Eos Absolute 0.0 E3/mcL Normal 0.0-0.7 [facility] Comment on above: Order Comment: Order Added by Discern Expert. Performed By: #### 2 091530 ####KADEN BairdFfoUuqh[address] [place] [address] Eosinophils/100 leukocytes 0.4 % Normal 0.0-11.0 [facility] Comment on above: Order Comment: Order Added by Discern Expert. Performed By: #### 2 728967 ####KADEN BairdGeqRbxy[address] [place] [address] Lymphocytes 1.4 E3/mcL Normal 1.2-3.4 [facility] Comment on above: Order Comment: Order Added by Discern Expert. Performed By: #### 2 946846 ####KADEN BairdVjuVkar[address] [place] [address] Lymphocytes/100 leukocytes 16.6 % Low 20.0-55.0 [facility] Comment on above: Order Comment: Order Added by Discern Expert. Performed By: #### 2 435616 ####KADEN BairdDavGglc25[address] [place] [address] Barbour Absolute 0.5 E3/mcL Normal 0.0-0.7 [facility] Comment on above: Order Comment: Order Added by Discern Expert. Performed By: #### 2 655285 ####KADEN BairdLvxCjgo[address] [place] [address] Monocytes/100 leukocytes 5.5 % Normal 0.0-10.0 [facility] Comment on above: Order Comment: Order Added by Discern Expert. Performed By: #### 2 487388 ####KADEN [address] [place] [address] Neutro Absolute 6.7 E3/mcL High 1.4-6.5 [facility] Comment on above: Order Comment: Order Added by Discern Expert. Performed By: #### 2 062372 ####KADEN [address] [place] [address] Neutro Auto 76.6 % High 37.0-75.0 [facility] Comment on above: Order Comment: Order Added by Discern Expert. Performed By: #### 2 627768 ####KADEN [address] [place] [address] CBC w/ Auto Diffon 8 Erythrocyte distribution width Auto Ratio (RBC) 15.0 % High 11.5-14.5 [facility] Comment on above: Performed By: #### 2 450044 ####KADEN [address] [place] [address] Erythrocytes (RBC) 4.94 E6/mcL Normal 3.90-5.40 [facility] Comment on above: Performed By: #### 2 276594 ####KADEN [address] [place] [address] Hematocrit (HCT) 40.0 % Normal 36.0-48.0 [facility] Comment on above: Performed By: #### 2 086472 ####KADEN [address] [place] [address] Hemoglobin mass conc (Bld) 13.0 g/dL Normal 12.0-16.0 [facility] Comment on above: Performed By: #### 2 593072 ####KADEN [address] [place] [address] MCH 26.2 pg Low 27.0-31.0 [facility] Comment on above: Performed By: #### 2 562710 ####KADEN [address] [place] [address] MCHC mass conc (RBC) 32.4 g/dL Low 33.0-37.0 [facility] Comment on above: Performed By: #### 2 845319 ####KADEN [address] [place] [address] MCV 81.0 fL Normal 78.0-100.0 [facility] Comment on above: Performed By: #### 2 052681 ####KADEN [address] [place] [address] Platelet mean volume (PMV) 7.5 fL Normal 7.4-11.0 [facility] Comment on above: Performed By: #### 2 358299 ####KADEN [address] [place] [address] Platelets 347 E3/mcL Normal 130-400 [facility] Comment on above: Performed By: #### 2 037311 ####KADEN [address] [place] [address] WBC (Leukocytes) 8.7 E3/mcL Normal 3.6-11.0 [facility] Comment on above: Performed By: #### 2 398895 ####KADEN [address] [place] [address] CMPon 12-12-2017 Alanine aminotransferase (ALT) 14 Int._Unit/L Normal 10-40 [facility] Comment on above: Performed By: #### 2 102797 ####KADEN [address] [place] [address] Albumin 3.8 g/dL Normal 3.2-5.0 [facility] Comment on above: Performed By: #### 2 786072 ####KADEN [address] [place] [address] Albumin/Globulin Ratio 1.0 {ratio} Low 1.1-1.9 [facility] Comment on above: Performed By: #### 2 231517 ####KADEN [address] [place] [address] Alk Phos 75 Int._Unit/L Normal 42-121 [facility] Comment on above: Performed By: #### 2 487043 ####KADEN [address] [place] [address] Aspartate aminotransferase (AST) 18 Int._Unit/L Normal 10-42 [facility] Comment on above: Performed By: #### 2 417497 ####KADEN [address] [place] [address] Bili Total 1.0 mg/dL Normal 0.2-1.0 [facility] Comment on above: Performed By: #### 2 055316 ####KADEN [address] [place] [address] BUN/Creatinine Ratio 12.5 ratio Normal 5.4-30.0 [facility] Comment on above: Performed By: #### 2 181177 ####KADEN [address] [place] [address] Creatinine 0.8 mg/dL Normal 0.6-1.3 [facility] Comment on above: Performed By: #### 2 802565 ####KADEN [address]JfcPnco[address] [place] [address] Globulin 3.8 g/dL Normal 2.0-4.0 [facility] Comment on above: Performed By: #### 2 239671 ####KADEN [address] [place] [address] Protein 7.6 g/dL Normal 6.4-8.3 [facility] Comment on above: Performed By: #### 2 598012 ####KADEN BairdKedFgaw[address] [place] [address] Urea nitrogen 10 mg/dL Normal 7-18 [facility] Comment on above: Performed By: #### 2 829176 ####KADEN [address]NovWqpc[address] [place] [address] Calcium 9.3 mg/dL Normal 8.4-10.2 [facility] Comment on above: Performed By: #### 2 805212 ####KADEN BairdYcqLfdq[address]47 [place] [address] Chloride 105 mmol/L Normal 98-107 [facility] Comment on above: Performed By: #### 2 179382 ####KADEN [address] [place] [address] CO2 25.1 mmol/L Normal 24.0-30.0 [facility] Comment on above: Performed By: #### 2 075301 ####KADEN [address] [place] [address] Glucose mass conc 101 mg/dL High 70-99 [facility] Comment on above: Performed By: #### 2 [id number] ####KADEN [address] [place] [id number] Potassium molar conc 3.4 mmol/L Low 3.5-5.1 [facility] Comment on above: Performed By: #### 2 516899 ####KADEN [address] [place] [address] Sodium 140 mmol/L Normal 136-145 [facility] Comment on above: Performed By: #### 2 803777 ####KADEN [address] [place] [address] Lipase Levelon 12-12-2017 Lipase Lvl 30 U/L Normal 8-57 [facility] Comment on above: Performed By: #### 2 883693 ####KADEN [address] [place] [address] UA Completeon 12-12-2017 UA Blood 3+ Normal Negative [facility] Comment on above: Performed By: #### 2 589197 ####KADEN [address]voDjns[address] [place] [address] UA Bacteria Trace Abnormal None [facility] Comment on above: Performed By: #### 2 381830 ####KADEN BairdTprSjoc8617 [place] [address] UA Clarity SltCloudy Abnormal Clear [facility] Comment on above: Performed By: #### 2 310506 ####KADEN [address] [place] [address] UA Hyal Cast 0-2 Normal 0-2 [facility] Comment on above: Performed By: #### 2 435867 ####KADEN ZowDvyi[address] [place] [address] UA Leuk Est 3+ Abnormal Negative [facility] Comment on above: Performed By: #### 2 301882 ####KADEN BairdIatPmuc[address] [place] [address] UA Mucous Many Abnormal Trace [facility] Comment on above: Performed By: #### 2 510127 ####KADEN [address] [place] [address] UA Nitrite Negative Normal Negative [facility] Comment on above: Performed By: #### 2 697254 ####KADEN [address] [place] [address] UA pH 5.0 Normal 4.6-8.0 [facility] Comment on above: Performed By: #### 2 254029 ####KADEN [address] [place] [address] UA Protein 1+ Abnormal Negative [facility] Comment on above: Performed By: #### 2 849581 ####KADEN [address] [place] [address] UA Spec Grav 1.026 Normal 1.003-1.030 [facility] Comment on above: Performed By: #### 2 019290 ####KADEN [address] [place] [address] UA Squam Epithelial 0-5 Normal 0-5 [facility] Comment on above: Performed By: #### 2 103151 ####KADEN MwaQaty[address] [place] [address] UA Urobilinogen 2.0 mg/dL Abnormal [facility] Comment on above: Performed By: #### 2 195975 ####KADEN [address] [place] [address] UA WBC >50 Abnormal 0-5 [facility] Comment on above: Performed By: #### 2 806630 ####KADEN [address]OrmWejq[address] [place] [address] Urine, color Yellow Normal Yellow [facility] Comment on above: Performed By: #### 2 643967 ####KADENMorelia [address]airdTaaIrow[address] [place] [address] Urine, erythrocytes 20-50 Abnormal 0-3 [facility] Comment on above: Performed By: #### 2 812553 ####KADEN B[address]IkaAdpi1779 [place] [address] Urine, glucose Negative Normal Negative [facility] Comment on above: Performed By: #### 2 247430 ####KADEN [address] [place] [address] Urine, ketones presence Trace Normal [facility] Comment on above: Performed By: #### 2 907359 ####KADEN [address] [place] [address] Urine, urobilinogen Negative Normal Negative [facility] Comment on above: Performed By: #### 2 012181 ####KADEN [address] [place] [address] eGFRon 12-12-2017 eGFR AA >60 Normal [facility] Comment on above: Order Comment: Order Added by Discern Expert. Performed By: #### 2 164529 ####KADEN uLceroo[address] [place] [id number] eGFR (non-black) mL/min/{1.73_m2} Normal [facility] Comment on above: Order Comment: Order Added by Discern Expert. Performed By: #### 2 585672 ####KADEN [address] [place] [id number] HISTORY PHYSICALon 8 HISTORY PHYSICAL HNO ID: [id number] thor: Clara Baker WolfeService: Maternal MedicineAuthor Type: PhysicianType: HANDPFiled: 12/02/2017 9:04 AMNote Text:[facility] DOCUMENTDISCHARGE SUMMARYPatient Name: Zuleika Gtz Date: 11/30/2017 6:16 AMDischarge Date: 12/02/2017Attending Physician: Dr. Smyth Diagnosis:1. Intrauterine at 39 weeks and 0/7 days.2. PROM.Secondary Diagnoses:ACTIVE PROBLEM LISTRupture of Membranes With Clear Amniotic FluidVaginal DeliveryFetal AnomalyOperations/Procedur e During Hospitalization:Spontaneou s Vaginal DeliveryReason for Hospitalization:Zuleika Villalta is a 27 year old who presented as a @ 39 and 0/7weeks to labor and delivery for augmentation for PROM. Her antenatalcourse was complicated by anomalies.Hospital Course:Pt's peripartum course was uncomplicated.Patient progressed through post delivery milestones without difficulty.She remained afebrile with stable vital signs throughout the postpartumperiod. She was discharged on Day #2 after tolerating po well,ambulating, passing flatus, and urinating without difficulty. ShePatient Condition at Discharge: StableDischarge Disposition: HomeInformation/Instructio ns Provided to the Patient: Patient given copy ofDischarge Instructions which include:Pelvic rest x 6 weeksRegular DietMay resume driving when able to react to adverse traffic conditionsNo submersion in water - showers only for 6 weeks.Discharge Medications:Prescription given for the following:Medication ListSTART taking these medicationsacetaminophen 325 mg tabletCommonly known as: TYLENOLTake 2 tablets by mouth every 6 hours as needed for Pain.CONTINUE taking these medicationsPRENATAL GUMMY ORALZOFRAN ODT 4 mg disintegrating tabletGeneric drug: ondansetron orally disintegratingWhere to Get Your MedicationsInformation about where to get these medications is not yet availableAsk your nurse or doctor about these medications? acetaminophen 325 mg tabletFuture Appointments:Follow up in 4 weeks with provider.Clara Jama, DO [facility] PROGRESSon 12-02-2017 PROGRESS HNO ID: [id number] thor: Marie Lema (Res) LendeService: ObstetricsAuthor Type: ResidentType: Progress NotesFiled: 12/02/2017 5:45 AMNote Text: -------Attestation signed by Clara Jama at 12/02/2017 8:53 AMAttending NoteI evaluated the patient and personally participated in the fan components. Iagree with the resident's findings and plan with the following revisions and/oradditions: pt gets nauseous when her baby sits up. Her partner is able to helpher with this. They report they have what they need at home. No questions forme. Will Dc to home today. Will FU with Dr. Ivan for her post- care andIUD placement. They decline LARC this admission. 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 Needs echo prior to dc to home. Has appt with medical genetics01/15/18.Signature: CHRISTOFER Vanegasate: 12/02/2017Time: 8:43 AMI spent 32 minutes in the visit, with more than 50% of the total [id number] of the visit in counseling / coordination of care. -------OBSTETRICSPOSTPARTU M PROGRESS NOTESERVICE DATE: December 02, 2017SERVICE TIME: 0545ASSESSMENT:27 year old female who is Day #2 status post Vaginal,Spontaneous Delivery delivery.1. Rh+/RI/Pumping/Girl2. Maternal Alcohol syndrome- has been consenting for care/guardianesince age 23.3. H/o maternal PDA- s/p repair as infant.4. Valvular insufficiency- Echo on 07/09/17 with EF 55%.5. H/o maternal clubfoot-s/p repair as infant6. H/o tobacco abuse7. Obesity- BMI 31.8. Routine PP Care9. D/c per attendingPLAN:Routine care.SUBJECTIVE:Patient has no current complaints. Tolerating PO intake. Urinating withoutdifficulty. Pain well controlled with current regimen. Lochia decreasing.Ambulating without difficulty.OBJECTIVE:PHYSI GEN EXAM:Heart: RR, S1, F9Ygxou: clear to auscultationAbdomen: Soft Bowel sounds present Fundus firm below umbilicusNon-distendedLAST VITALS:Pulse BP Resp O2 Sat Temp Pain 93 139/87 18 98 % (98) 36.8 ?C (98.2 ?F) 0/10HT/WT/BMI:Height Weight BMI 167.6 cm (5' 6 ) 88.5 kg (195 lb) 31.47LABSDiagnostic tests reviewed for today's visit: Most recent labs and imagingresults.SIGNATURE: Marie Hassan DO PATIENT NAME: Zuleika LambATE: December 02, 2017 : 5:45 AM Normal [facility] SOCIAL WORKon 12-02-2017 SOCIAL WORK HNO ID: [id number] thor: Meredith Davidson) ManueloService: Social WorkAuthor Type: Social WorkerType: Social WorkFiled: 12/02/2017 12:25 PMNote Text:SOCIAL WORK CONSULT NOTESERVICE DATE: 12/02/2017SERVICE TIME: 1015Referred by: Jose for visit:Maternal/ - adjustment to conditionLiving Arrangement: HomeLives With: PartnerFinancial Resources: DisabledPrimary Contact:Extended Emergency Contact Information [facility]CH 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 RN adds FOB has been with pt and continuouslyfor support.Met with pt and FOB (Darrell Branch) in room. Pt presents as friendly anddiscussed that she is ok with baby , however, when baby spit up earlier,it made her nauseous. Explored pts knowledge of care which ptstates she is comfortable being around baby however rely's on FOB andextended family for assistance. Per pt, she and FOB will be staying withFOB parents for unknown amount of time after d/c from hospital. (FOBparents are Anamika Munoz of [address] [place] [address] , [facility]).Per pt and FOB, all needed baby supplies and equipment are at the [facility] and a nursery has been set up.Per pt, name of baby girl is Martha Branch.Pt states she is on SSI and WIC.Pt shares that she is in ongoing counseling at [facility] in [place] and has appointments 2 x per month.Discussed with pt and FOB signs and sx of depression; safe babysleep and discussed ways to deal with crying infant. Pt again states sheis going to rely on her support system.No additional issues identified at this time. Encouraged pt and FOB toutilize services through [facility]. Providedcontact information.Outcome/Recomm endations:[facility]istance through [facility] spent (minutes): 60SIGNATURE: CARLA Goncalves PATIENT NAME: Zuleika Hernandez: December 02, 2017 : 11:10 AM PAGER/CONTACT#: [facility] ANES INTRAOPon 12-01-2017 ANES INTRAOP HNO ID: [id number] thor: Terrance Leblanc) Richyervice: AnesthesiologyAuthor Type: Nurse AnesthetistType: Anesthesia IntraOpFiled: 12/01/2017 9:41 AMNote Text:ANALGESIA PROGRESS RECORDCATHETER REMOVAL/END OF CASESERVICE DATE: 12/01/2017REMOVAL DATE AND TIME: 11/30/2017, 3DELIVERY DATE AND TIME: 11/30/2017 at 5:49 PMCATHETER REMOVAL:Catheter Removal: See [facility] Nursing noteSIGNATURE: Terrance Contreras APRN.CRNA PATIENT NAME: Zuleika Hernandez: December 01, 2017 : 9:40 AM PAGER/CONTACT #: [facility] ANES Keke 12-01-2017 ANES POST HNO ID: [id number] thor: Terrance Lockhartervice: AnesthesiologyAuthor Type: Nurse AnesthetistType: Anesthesia PostOpFiled: 12/01/2017 9:43 AMNote Text:POST ANESTHESIA EVALUATION NOTESERVICE DATE: 12/01/2017SERVICE TIME: 9:42 AMDOB: 1990Vitals: 12/01/1799Temp: 36.7 ?C (98.1 ?F) 36.8 ?C (98.2 ?F) 36.4 ?C (97.5 ?F) 36.4 ?C (97.5?F) 12/01/1799P: 119/55 102/61 107/57 116/72 12/01/1799ulse: 90 79 65 78 12/01/1799Resp: 20 16 20 16 11/30/1818SpO2: 100% 98% 98% 98%Validated Vital Signs: YesPOST ANES STATUS: No apparent anesthetic complications. The patient isappropriately hydrated with stable respiratory and cardiovascular status.Patient has safe and adequate airway control. The patient has appropriatepain relief and no significant post operative nausea or vomiting. Thepatient has achieved baseline mental status.Further assessment by Anesthesia Service: NoneOther Remarks:SIGNATURE: Terrance Contreras APRN.DISTRICT COURT REPORTER PATIENT NAME: Zuleika LambATE: December 01, 2017 : 9:42 AM PAGER/CONTACT #: [phone] PROGRESSon 12-01-2017 PROGRESS HNO ID: [id number] thor: Marie Lema (Res) LendeService: ObstetricsAuthor Type: ResidentType: Progress NotesFiled: 12/01/2017 6:42 AMNote Text: -------Attestation signed by Oksana Mason at 12/01/2017 8:47 AMPatient seen and examined by me and I agree with the residents assessment andplan. Likely discharge to home/bonding tomorrow.Oksana Amado MD ----OBSTETRICSPOSTPARTUM PROGRESS NOTESERVICE DATE: December 01, 2017SERVICE TIME: 0640ASSESSMENT:27 year old female who is Day #1 status post Vaginal,Spontaneous Delivery delivery.1. Rh+/RI/Pumping/Girl2. Maternal Alcohol syndrome- has been consenting for care/guardianesince age 23.3. H/o maternal PDA- s/p repair as infant.4. Valvular insufficiency- Echo on 07/09/17 with EF 55%.5. H/o maternal clubfoot-s/p repair as infant6. H/o tobacco abuse7. Obesity- BMI 31.8. Routine PP Care9. D/c per attendingPLAN:Routine care.SUBJECTIVE:Patient has no current complaints. Tolerating PO intake. Urinating withoutdifficulty. Pain well controlled with current regimen. Lochia decreasing.Ambulating without difficulty.OBJECTIVE:PHYSI GEN EXAM:Heart: RR, S1, A2Ckwxr: clear to auscultationAbdomen: Soft Bowel sounds present Fundus firm below umbilicusNon-distendedLAST VITALS:Pulse BP Resp O2 Sat Temp Pain 65 107/57 20 98 % (98) 36.4 ?C (97.5 ?F) 0/10HT/WT/BMI:Height Weight BMI 167.6 cm (5' 6 ) 88.5 kg (195 lb) 31.47LABSDiagnostic tests reviewed for today's visit: Most recent labs and imagingresults.SIGNATURE: Marie Hassan DO PATIENT NAME: Zuleika LambATE: December 01, 2017 : 6:40 AM Normal [facility] ABO/Rh Confirmationon 2017 ABO group Nom (Bld) A Normal [facility] Comment on above: Performed By: #### A JESSIE #### [facility] [address] [address] RH Type Positive Normal [facility] Comment on above: Performed By: #### A JESSIE #### [facility] [address] [address] ANES PREOPon 11-30-2017 ANES PREOP HNO ID: [id number] thor: Aaron Leblanc) PoloService: AnesthesiologyAuthor Type: Nurse AnesthetistType: Anesthesia PreOpFiled: 11/30/2017 12:15 PMNote Text:OB ANESTHESIA PRE-PROCEDURE ASSESSMENTSERVICE DATE: 11/30/2017SERVICE TIME: 1215Estimated body mass index is 31.47 kg/m? as calculated from the following: Height as of this encounter: 167.6 cm (5' 6 ). Weight as of this encounter: 88.5 kg (195 lb).ASA Class: 2Adequate NPO Status: YesALLERGIESAllergen Reactions- Bees Unknown- Mold Spores Rash- Penicillins Unknown As baby - unknown reaction- Sulfa (Sulfonamide * RashAirway Assessment: MP 2; Neck ROM: Full ROM without neurologic symptoms;Airway Evaluation: No significant abnormalitiesDentition: Teeth intactSymptoms of Sleep Apnea: DeniesHematocritDate Value Ref Range Ubalpn7511/30/2017 32.3 (L) 34.1 - 44.9 % Final Platelet CountDate Value Ref Range Hucpgf8211/30/2017 193 182 - 369 thou/cmm Final Vitals: 637688 005672 139 143BP: 142/75 138/81Pulse: 75 81Resp:Temp: 36.6 ?C (97.9 ?F) 36.7 ?C (98.1 ?F)TempSrc: Oral OralSpO2:Weight:Height:Pre vious Anesthesia: No history of adverse event Family history ofanesthetic problems: NoneAdditional Physical Exam:Lungs: Clear to auscultation. Breath Sounds Equal: YesCardiac: Regular rhythmAdditional Pertinent Findings: None and bulging disc l4-5OBSTETRIC HISTORY:ACTIVE PROBLEM LISTRupture of Membranes With Clear Amniotic FluidPrevious OB Anesthetic: NonePast Obstetric History: see epicCurrent Obstetric Problems/ Important Considerations:see epicGERD: Denies GERDAnesthetic Risks, Benefits, Alternatives, Personnel and Consent Discussed. Separate Consent Signed at this Interview: YesBlood Products: Not anticipated for this procedureANESTHETIC PLAN: Epidural with General Anesthesia Back-upPain Management Plan: Parenteral or OralEPIC Chart ReviewACTIVE PROBLEM LISTRupture of Membranes With Clear Amniotic FluidPAST MEDICAL HISTORYDiagnosis Date- Bipolar 1 disorder (HCC)- Club foot- Dysthymic disorder Depression (non-psychotic)- alcohol syndrome- Generalized anxiety disorder Anxiety, Generalized- PDA (patent ductus arteriosus) repaired a a childPAST SURGICAL HISTORYProcedure Laterality Date- APPLICATION OF CLUB FOOT CAST, LONG/SHORT Left- BREAST REDUCTION Bilateral- PDA CLOSURENo family history on file.Social HistorySubstance Use Topics- Smoking status: Former Smoker- Smokeless tobacco: Never Used- Alcohol use NoPrescriptions Prior to Admission: vits62/FA/om3/dha/epa ( GUMMY ORAL) Take 1 tablet bymouth once daily. Disp: Rfl:ondansetron orally disintegrating (ZOFRAN ODT) 4 mg disintegrating tabletTake 4 mg by mouth every 8 hours as needed. Disp: Rfl:[facility]patient medications [facility] in [facility].I have interviewed and examined the patient. I have reviewed the medicalrecord , pertinent consults and/or the pre-anesthesia evaluation,pertinent labs, and test results.Significant changes in the patient's condition since the History andPhysical, not otherwise documented in primary service progress notes: NoThis contains updated information obtained within 48 hours ofSurgery/Procedure.SIGNAT URE: Hema Cuellar APRN.DISTRICT COURT REPORTER PATIENT NAME: Zuleika LambATE: November 30, 2017 : 12:13 PM : 1990 Normal [facility] Auto Diffon 11-30-2017 Basophils Auto #/vol (Bld) 0.1 E3/mcL Normal 0.0-0.2 [facility] Comment on above: Order Comment: Order Added by Discern Expert. Performed By: #### 2 [id number] ####KADEN [address] [place] [address] Basophils/100 WBC Auto (Bld) 0.9 % Normal 0.0-2.0 [facility] Comment on above: Order Comment: Order Added by Discern Expert. Performed By: #### 2 [id number] ####KADEN [address] [place] [address] Eos Absolute 0.1 E3/mcL Normal 0.0-0.7 [facility] Comment on above: Order Comment: Order Added by Discern Expert. Performed By: #### 2 [id number] ####KADEN [address] [place] [address] Eosinophils/100 leukocytes 1.0 % Normal 0.0-11.0 [facility] Comment on above: Order Comment: Order Added by Discern Expert. Performed By: #### 2 [id number] ####KADEN [address] [place] [address] Lymphocytes 2.0 E3/mcL Normal 1.2-3.4 [facility] Comment on above: Order Comment: Order Added by Discern Expert. Performed By: #### 2 [id number] ####KADEN [address] [place] [address] Lymphocytes/100 leukocytes 22.1 % Normal 20.0-55.0 [facility] Comment on above: Order Comment: Order Added by Discern Expert. Performed By: #### 2 110031 ####KADEN [address] [place] [address] Barbour Absolute 0.7 E3/mcL Normal 0.0-0.7 [facility] Comment on above: Order Comment: Order Added by Discern Expert. Performed By: #### 2 157830 ####KADEN [address] [place] [address] Monocytes/100 leukocytes 7.5 % Normal 0.0-10.0 [facility] Comment on above: Order Comment: Order Added by Discern Expert. Performed By: #### 2 949306 ####KADEN [address] [place] [address] Neutro Absolute 6.1 E3/mcL Normal 1.4-6.5 [facility] Comment on above: Order Comment: Order Added by Discern Expert. Performed By: #### 2 324132 ####KADEN [address] [place] [address] Neutro Auto 68.5 % Normal 37.0-75.0 [facility] Comment on above: Order Comment: Order Added by Discern Expert. Performed By: #### 2 098542 ####KADEN [address] [place] [id number] CBC w/ Auto Diffon 8 Erythrocyte distribution width Auto Ratio (RBC) 14.3 % Normal 11.5-14.5 [facility] Comment on above: Performed By: #### 2 [id number] ####KADEN [address] [place] [address] Erythrocytes (RBC) 4.34 E6/mcL Normal 3.90-5.40 [facility] Comment on above: Performed By: #### 2 103773 ####KADEN [address] [place] [id number] Hematocrit (HCT) 35.1 % Low 36.0-48.0 [facility] Comment on above: Performed By: #### 2 673257 ####KADEN [address] [place] [id number] Hemoglobin mass conc (Bld) 11.6 g/dL Low 12.0-16.0 [facility] Comment on above: Performed By: #### 2 766344 ####KADEN [address] [place] [id number] MCH 26.6 pg Low 27.0-31.0 [facility] Comment on above: Performed By: #### 2 [id number] ####KADEN [address] [place] [id number] MCHC mass conc (RBC) 32.9 g/dL Low 33.0-37.0 [facility] Comment on above: Performed By: #### 2 326759 ####KADEN [address] [place] [id number] MCV 80.9 fL Normal 78.0-100.0 [facility] Comment on above: Performed By: #### 2 602663 ####KADEN [address] [place] [id number] Platelet mean volume (PMV) 7.6 fL Normal 7.4-11.0 [facility] Comment on above: Performed By: #### 2 139000 ####KADEN [address] [place] [address] Platelets 217 E3/mcL Normal 130-400 [facility] Comment on above: Performed By: #### 2 143293 ####KADEN [address] [place] [address] WBC (Leukocytes) 8.8 E3/mcL Normal 3.6-11.0 [facility] Comment on above: Performed By: #### 2 [id number] ####KADEN [address] [place] [address] CONSULTon 11-30-2017 CONSULT HNO ID: [id number] thor: Marie Lema (Res) LendeService: ObstetricsAuthor Type: ResidentType: ConsultsFiled: 11/30/2017 7:01 AMNote Text: -------Attestation signed by Serenity Maldonado MD at 11/30/2017 8:22 AMAgree. Primip at term with SROM, Patient has FAS; fetus with multipleanomalies. Consult placed for delivering services. Thank you for asking us toassist in the care of this nice lady.Serenity Maldonado MD ----OBSTETRICSHISTORY AND PHYSICALSERVICE DATE: November 30, 2017SERVICE TIME: 6:49 AMSubjectivePatient's stated reason for arrival: water broke, baby has heart defectsCHIEF COMPLAINT: Rupture of membranesHISTORY OF THE PRESENT ILLNESS: The patient is a 27 year old female,, who is at 39w0d with an HUGO of Estimated Date of Delivery:12/07/17. Patient is here complaining of SROM at 0225a.m. today of clearfluid. Good movement. Denies vaginal bleeding., C/O of occasionalcontractions..Pr egnancy is complicated by multiple anomalies listedbelow for which the patient had low risk cell free DNA. There is a fetaltreatment center plan and the fetus will need evaluation.Maternal complications include history of repaired PDA, history ofrepaired clubbfoot, maternal alcohol syndrome, and trivial valvularinsufficiency.Hist ory of HSV: DeniesHistory of MRSA: DeniesMaternal Results (in the last 365 days, Abnormal Results displaywith * ):ABO/Rh:HCT:HBsAG:HIV:GC/ CHLAYMDIA:RUBELLA:HEPATITI S C:GBS:RPR:SYPHILIS:POST DELIVERY CONTRACEPTION:Discussed post-delivery contraception options.Patient received written information about post-delivery contraceptionoptions.Undec idedHISTORY REVIEWPAST MEDICAL HISTORYDiagnosis Date- Club foot- alcohol syndrome- PDA (patent ductus arteriosus) repaired a a childPAST SURGICAL HISTORYProcedure Laterality Date- APPLICATION OF CLUB FOOT CAST, LONG/SHORT Left- BREAST REDUCTION Bilateral- PDA CLOSURENo family history on file.Social History Marital status: Unknown Spouse name: Years of education: Number of children:Social History Main Topics Smoking status: Former Smoker Packs/day: 0.00 Years: 0.00 Smokeless tobacco: Never Used Alcohol use: No Drug use: No Sexual activity: Yes Partners with: MaleObstetric History T0 L0 SAB1 TAB0 Ectopic0 Multiple0 Live Nrmkaz4Osdo of Baby 1: Not recorded Date: 2014 [place]: Not recorded Delivery: Not recorded Apgar1: Not recorded Apgar5: Not recorded Living: Not recordedName of Baby 2: Not recorded Date: Not recorded [place]: Not recorded Delivery: Not recorded Apgar1: Not recorded Apgar5: Not recorded Living: Not recordedThere are no active non-hospital problems to display for this patient.ALLERGIESAllergen Reactions- Bees Unknown- Mold Spores Rash- Penicillins Unknown- Sulfa (Sulfonamide * RashPrior to Admission MedicationsPrescriptions Last Dose Informant Patient Reported? Taking?ondansetron orally disintegrating (ZOFRAN ODT) 4 mg disintegrating tablet Yes YesSig: Take 4 mg by mouth every 8 hours as needed. vits62/FA/om3/dha/epa ( GUMMY ORAL) Yes YesSig: Take 1 tablet by mouth once daily.Facility-Administere d Medications: NoneREVIEW OF SYSTEMS:The remainder of the review of systems is negative.ObjectiveLAST VITALS:Pulse BP Resp O2 Sat Temp Pain 76 118/74 18 100 % 36.5 ?C (97.7 ?F) 10/24HT/WT/BMI:Height Weight BMI 167.6 cm (5' 6 ) 88.5 kg (195 lb) 31.47PHYSICAL EXAM:General: WD, WNHEENT: NC/AT, sclera white, pupils equal, no thyromegalyLungs: clearHeart: RR, S1, U7Owzzdhk: soft, nontender, no massesUterus: soft, NTExtremities: 1+ edemaDTRs: 2+FHT: bpmSt Spec Exam: (not done)CERVICAL EXAM:Dilation: 1 (11/30/17 0648 : Marie Lema (Res) Sonya) cmStation: -2 (11/30/1748 : Marie Lema (Res) Lendtramaine)Effacement: 60 (11/30/1748 : Marie Lema (Res) Lendtramaine) %Position:Presentation: Pelvimetry: Pelvimetry clinically assessed as adequateFETAL MONITORING/ASSESSMENT:Base line: 140sVariability: ModerateAccelerations: Acelerations presentDecelerations: AbsentContractions: Rare contractionsFrequency: rareNST Interpretation: IFHR Category:NST Comments:EFW: 6.5 based on clinical assessment.Ultrasound:Posi tion: VertexPlacenta: AnteriorCardiac Motion: PresentAmniotic Fluid: No 2X2 pocket notedDiagnostic tests reviewed for today's visit:Assessment/Plan27 year old EGA:39w0d. Is admitted for augmentation for PROM1. GBS-2. Pit per protocol3. Epi prn4. FB soon5. s/[place] [address]. anomalies- prominent cisterna magna, bilateral periventrcularnodular heterotopia, 2cm umbilical vein varix, nonvisualization ofgallbladder, samaria-cross pulmonary veins, thymic hypoplasia, moderatelydilated ascending aorta. . FTC plan in placed. Will need postnatalevaluation with Medical genetics and echocardiogram. Low risk cellfree DNA.7. Maternal Alcohol syndrome- has been consenting for care/guardianesince age 23.8. H/o maternal PDA- s/p repair as .9. Valvular insufficiency- Echo on 07/09/17 with EF 55%.10. H/o maternal clubfoot-s/p repair as cyzmcj10. H/o tobacco abuseSigned out to [facility] for deliveryDr. Amado reviewed with Dr. MaldonadoSIGNATURE: Marie Hassan DO PATIENT NAME: Zuleika LambATE: November 30, 2017 : 6:49 AM PAGER/CONTACT #: [phone] Normal [facility] HISTORY PHYSICALon HISTORY PHYSICAL HNO ID: [id number] thor: Marie Lema (Res) JabiereService: ObstetricsAuthor Type: ResidentType: HANDPFiled: 11/30/2017 7:00 AMNote Text: -------Attestation signed by Oksana Mason at 11/30/2017 9:32 AMPatient seen and examined by me and I agree with the residents assessment andplan.Oksana Amado MD ----OBSTETRICSHISTORY AND PHYSICALSERVICE DATE: November 30, 2017SERVICE TIME: 6:49 AMSubjectivePatient's stated reason for arrival: [place] chan, baby has heart defectsCHIEF COMPLAINT: Rupture of membranesHISTORY OF THE PRESENT ILLNESS: The patient is a 27 year old female,, who is at 39w0d with an HUGO of Estimated Date of Delivery:12/07/17. Patient is here complaining of SROM at 0225a.m. today of clearfluid. Good movement. Denies vaginal bleeding., C/O of occasionalcontractions..Pr egnancy is complicated by multiple anomalies listedbelow for which the patient had low risk cell free DNA. There is a fetaltreatment center plan and the fetus will need evaluation.Maternal complications include history of repaired PDA, history ofrepaired clubbfoot, maternal alcohol syndrome, and trivial valvularinsufficiency.Hist ory of HSV: DeniesHistory of MRSA: DeniesMaternal Results (in the last 365 days, Abnormal Results displaywith * ):ABO/Rh:HCT:HBsAG:HIV:GC/ CHLAYMDIA:RUBELLA:HEPATITI S C:GBS:RPR:SYPHILIS:POST DELIVERY CONTRACEPTION:Discussed post-delivery contraception options.Patient received written information about post-delivery contraceptionoptions.Undec idedHISTORY REVIEWPAST MEDICAL HISTORYDiagnosis Date- Club foot- alcohol syndrome- PDA (patent ductus arteriosus) repaired a a childPAST SURGICAL HISTORYProcedure Laterality Date- APPLICATION OF CLUB FOOT CAST, LONG/SHORT Left- BREAST REDUCTION Bilateral- PDA CLOSURENo family history on file.Social History Marital status: Unknown Spouse name: Years of education: Number of children:Social History Main Topics Smoking status: Former Smoker Packs/day: 0.00 Years: 0.00 Smokeless tobacco: Never Used Alcohol use: No Drug use: No Sexual activity: Yes Partners with: MaleObstetric History T0 L0 SAB1 TAB0 Ectopic0 Multiple0 Live Nunyes3Fqbu of Baby 1: Not recorded Date: 2014 [place]: Not recorded Delivery: Not recorded Apgar1: Not recorded Apgar5: Not recorded Living: Not recordedName of Baby 2: Not recorded Date: Not recorded [place]: Not recorded Delivery: Not recorded Apgar1: Not recorded Apgar5: Not recorded Living: Not recordedThere are no active non-hospital problems to display for this patient.ALLERGIESAllergen Reactions- Bees Unknown- Mold Spores Rash- Penicillins Unknown- Sulfa (Sulfonamide * RashPrior to Admission MedicationsPrescriptions Last Dose Informant Patient Reported? Taking?ondansetron orally disintegrating (ZOFRAN ODT) 4 mg disintegrating tablet Yes YesSig: Take 4 mg by mouth every 8 hours as needed. vits62/FA/om3/dha/epa ( GUMMY ORAL) Yes YesSig: Take 1 tablet by mouth once daily.Facility-Administere d Medications: NoneREVIEW OF SYSTEMS:The remainder of the review of systems is negative.ObjectiveLAST VITALS:Pulse BP Resp O2 Sat Temp Pain 76 118/74 18 100 % 36.5 ?C (97.7 ?F) 10/24HT/WT/BMI:Height Weight BMI 167.6 cm (5' 6 ) 88.5 kg (195 lb) 31.47PHYSICAL EXAM:General: WD, WNHEENT: NC/AT, sclera white, pupils equal, no thyromegalyLungs: clearHeart: RR, S1, G8Cabupdj: soft, nontender, no massesUterus: soft, NTExtremities: 1+ edemaDTRs: 2+FHT: bpmSt Spec Exam: (not done)CERVICAL EXAM:Dilation: 1 (11/30/17 0648 : Marie Lema (Res) Sonya) cmStation: -2 (11/30/17 0648 : Marie Lema (Res) Lendtramaine)Effacement: 60 (11/30/17 0648 : Marie Lema (Res) Sonya) %Position:Presentation: Pelvimetry: Pelvimetry clinically assessed as adequateFETAL MONITORING/ASSESSMENT:Base line: 140sVariability: ModerateAccelerations: Acelerations presentDecelerations: AbsentContractions: Rare contractionsFrequency: rareNST Interpretation: IFHR Category:NST Comments:EFW: 6.5 based on clinical assessment.Ultrasound:Posi tion: VertexPlacenta: AnteriorCardiac Motion: PresentAmniotic Fluid: No 2X2 pocket notedDiagnostic tests reviewed for today's visit:Assessment/Plan27 year old EGA:39w0d. Is admitted for augmentation for PROM1. GBS-2. Pit per protocol3. Epi prn4. FB soon5. [place] [address]. anomalies- prominent cisterna magna, bilateral periventrcularnodular heterotopia, 2cm umbilical vein varix, nonvisualization ofgallbladder, samaria-cross pulmonary veins, thymic hypoplasia, moderatelydilated ascending aorta. . FTC plan in placed. Will need postnatalevaluation with Medical genetics and echocardiogram. Low risk cellfree DNA.7. Maternal Alcohol syndrome- has been consenting for care/guardianesince age 23.8. H/o maternal PDA- s/p repair as .9. Valvular insufficiency- Echo on 07/09/17 with EF 55%.10. H/o maternal clubfoot-s/p repair as tujied22. H/o tobacco abuseSigned out to [facility] for deliveryD/w Dr. AmadoSIGNATURE: Marie Hassan DO PATIENT NAME: Zuleika BecerrilAraceliATE: November 30, 2017 : 6:49 AM PAGER/CONTACT #: [phone] Normal [facility] Hemogramon 11-30-2017 Erythrocyte distribution width Ratio (RBC) 13.6 % Normal 11.7-14.4 [facility] Comment on above: Performed By: #### C BC1 #### [place] [address] Hematocrit Volume Fraction (Bld) 32.3 % Low 34.1-44.9 [facility] Comment on above: Performed By: #### C BC1 #### [place] [address] Hemoglobin mass conc (Bld) 10.4 g/dL Low 11.2-15.7 [facility] Comment on above: Performed By: #### C BC1 #### [place] [address] MCH Entitic mass (RBC) 26.4 pg Normal 25.6-32.2 [facility] Comment on above: Performed By: #### C BC1 #### [place] [address] MCHC mass conc (RBC) 32.2 % Normal 31.6-34.8 [facility] Comment on above: Performed By: #### C BC1 #### [facility] [address] [address] MCV Entitic volume (RBC) 82.0 fL Normal 79.4-94.8 [facility] Comment on above: Performed By: #### C BC1 #### [facility] [address] [place] [address] Platelet mean volume Entitic volume (Bld) 9.9 fL Normal 9.4-12.3 [facility] Comment on above: Performed By: #### C BC1 #### [facility] [address] [place] [address] Platelets #/vol (Bld) 193 thou/cmm Normal 182-369 A [facility] Comment on above: Performed By: #### C BC1 #### [place] [address] RBC #/vol (Bld) 3.94 mil/cmm Normal 3.93-5.22 [facility] Comment on above: Performed By: #### C BC1 #### [facility] [address] [place] [address] RDW SD 40.6 fl Normal 36.4-46.3 [facility] Comment on above: Performed By: #### C BC1 #### [facility] [address] [place] [address] WBC #/vol (Bld) 9.85 thou/cmm Normal 3.98-10.04 [facility] Comment on above: Performed By: #### C BC1 #### [place] [address] LD NOTEon 11-30-2017 LD NOTE HNO ID: [id number] thor: Marie Lema (Res) LendeService: ObstetricsAuthor Type: ResidentType: LANDD Delivery NoteFiled: 11/30/2017 6:19 PMNote Text: -------Attestation signed by Serenity Maldonado MD at 12/01/2017 6:04 PMI saw and evaluated the patient. I reviewed the resident's note and agree,except that patient seen by [facility] (patient has FAS, fetus with multipleanomlaies) service, consult placed to [facility] for management of labor AND delivery.Liset montez presented at 39w with PROM, had Pugh balloon AND Pitocin foraugmentaion. Late in labor noted tachycardia that improved with IVFB ANDTylenol (mother rico had elevated temp but felt warm). Transported to [facility] so baby could go to awaiting NICU team for evaluation (was allowed tohave delivery to abdomen AND 30 sec delay for cord clamping). Pushed well AND hadSVD of a viable female infant (APGARS 8,9, weight of 3200g/7#1oz) over intactperineum. Uterus slightly boggy after delivery, responded to massage AND Pitocininfusion, EBL ~500cc.Serenity Maldonado MD ----OBSTETRICSDELIVERY SUMMARY - VAGINAL DELIVERYGestational Age at Delivery: [id number] Date: 11/30/2017Service Time: 1799Kebethn, Bg Zuleika Dillard [[id number]]Labor EventsRupture Date: 11/30/17Rupture Time: 224Rupture Type: PROMFluid Color: ClearInduction: Yes Induction Method: OxytocinEpisiotomy/Lacerat ion:Episiotomy: NoneLacerations: NoneEstimated Blood Loss (mL):Estimated Blood Loss (mL): 500Date and Time of :Date of : 11/30/17Time of : Information:Primary Reason for Delivery : Ruptured MembranesAdditional Clinicial Indicator(s) for delivery: N/ADelivery type: Vaginal, Spontaneous DeliveryPresentation: VertexShoulder Dystocia Present: NoCord:Complications: NoneDelayed Cord Clamping: YesPlacenta:Delivered: 11/30/2017 5:55 PMRemoval: SpontaneousAppearance: IntactAnesthesia:Method: EpiduralMeasurements, Apgars:Brice Triplett Called: YesType of Brice Triplett Team Needed: PlannedA digital sweep of the vaginal canal was performed by the Resident andit was ascertained that no instruments or other foreign bodies areretained within the cavity.Mother and baby are stable. Baby is with the NICU staff.27 y/o now presented at 39.0 weeks gestation for augmentation forPROM. Premature rupture of membranes occurred at 0200. She was started onpitocin and a Pugh balloon for her augmentation. She received herepidural for maternal analgesia. She progressed along a normal labor curveto complete dilation. She began pushing and delivered withoutcomplication. This was complicated by multiple anomaliesfor cardiac and dilated cisterna magnum. The patient has maternal fetalalcohol syndrome and has a history of repaired club foot and repaired PDA.She also had valvular insufficiency with EF this of 55%. Fannieo has a history of former tobacco abuse.SIGNATURE: Marie Hassan DO PATIENT NAME: Zuleika LambATE: November 30, 2017 : 6:15 PM Normal [facility] NURSING PROGon 11-30-2017 NURSING PROG HNO ID: [id number] thor: Marguerite (Rn) ANEUDY Albarranervice: (none)Author Type: Registered NurseType: Nursing Progress NoteFiled: 11/30/2017 7:06 PMNote Text: INTRODUCED SELF TO PATIENT AND SUPPORT PERSONS. PLAN OF CARE DISCUSSED.ASSESSMENT PERFORMED. PATIENT DENIES COMPLAINTS. Normal [facility] NURSING PROG HNO ID: [id number] thor: Darcie (Rn) ANEUDY Landeroservice: NursingAuthor Type: Registered NurseType: Nursing Progress NoteFiled: 11/30/2017 10:03 AMNote Text:Patient up to shower for comfort. Boyfriend at side. On telemetrymonitors. RN remains in room. FHR difficult to maintain continuoustracing Normal [facility] NURSING PROG HNO ID: [id number] Author: Norah MagañaRn) KARRI Eastman Service: Nursing Author Type: Registered Nurse Type: Nursing Progress Note Filed: 11/30/2017 7:18 AM Note Text: Report given to Darcie DURAN and care transferred at this time. Normal [facility] PROCEDUREon 11-30-2017 PROCEDURE HNO ID: [id number] thor: Aaron (Chiara) PoloService: AnesthesiologyAuthor Type: Nurse AnesthetistType: ProceduresFiled: 11/30/2017 12:30 PMNote Text:OB ANESTHESIA PROCEDURE:EPIDURAL LABOR PCEA ANALGESIAPROCEDURE DATE: 11/30/2017PROCEDURE START TIME: 5The patient was placed in a sitting position. Timeout was performed andinformed consent confirmed (see nurse's documentation). Using steriletechnique, the patient's back was prepped and draped. Skin site wasinfiltrated with local anesthetic.Beginning Pain Score: 8 out of 10VItals:Last Pulse11/30/17 : 81 Last BP11/30/17 : 138/81Needle: 17 gauge TuohyDepth of Needle: 4 cmDepth of Catheter at Skin: 9 cmCm of Catheter in Epidural Space: 5 cmInterspace: approximately L2-E2Hztytr of Attempts: 1Wet Tap Complication: NoDural Puncture Epidural: NoLoss of Resistance: SalineParasthesias: None Time Amt Medication Pulse B.P. CommentsCatheterTEST 1227 5 cc 1.5% Lidocaine with 1:200,000 Epinephrine 90 140/83NegativeCatheterBOLU S 1229 8 cc .2 ropivINFUSION 1231 Continous Infusion 12 mL/hr PCEA: Bolus 3 mL, Lockout 20 mins .2ropiv 87 140/62 Patient comfortableable to flex kneesPatient comfortable able to move legsPain Score After Treatment: 2 out of 10See nurses' documentation for additional vitals.SIGNATURE: Hema Cuellar APRN.DISTRICT COURT REPORTER PATIENT NAME: Zuleika BecerrilnDATE: November 30, 2017 : 12:27 PM PAGER/CONTACT #: Normal [facility] PROGRESSon 11-30-2017 PROGRESS HNO ID: [id number] thor: Marie Lema (Res) LendeService: ObstetricsAuthor Type: ResidentType: Progress NotesFiled: 11/30/2017 5:04 PMNote Text:UpdatePatient is pushing in the OR. Cat I FHRT with baseline around 160s. updated and in house.Franki Neri 2017 5:04 PM [facility] PROGRESS HNO ID: [id number] Author: Darcie MagañaRn) Tigre RN Service: Nursing Author Type: Registered Nurse Type: Progress Notes Filed: 11/30/2017 3:29 PM Note Text: Patient feeling pressure, cervical exam 9.5 cm. NICU notified. Patient feels warm, but temp 36.9. Normal [facility] PROGRESS HNO ID: [id number] thor: Marie Lema (Res) LendeService: ObstetricsAuthor Type: ResidentType: Progress NotesFiled: 11/30/2017 1:39 PMNote Text:OBSTETRICSINTRAPARTUM PROGRESS NOTESERVICE DATE: November 30, 2017SERVICE TIME: 1:35 PMSubjectivePatient with no complaints.ObjectiveLAST VITALS:Pulse BP Resp O2 Sat Temp Pain 78 122/63 18 100 % 36.7 ?C (98.1 ?F) 8/10PHYSICAL EXAM:CERVICAL EXAM:Last Exam Notes: Dilation: 5 (11/30/17 1309 : Yolanda (Res) Barbosa)Effacement (%): 80 (11/30/17 1309 : Yolanda (Res) Barbosa)Station: -2 (11/30/17 1309 : Yolanda (Res) Barbosa)Presentation: (not recorded)MEMBRANES:Status: Membrane Status: Premature (11/30/17 0853 : Darcie (Rn) TigreRN)Rupture Date: 11/30/17 (11/30/17 0853 : Darcie Washington) Tigre RN)Rupture Time: 0225 (11/30/17 0853 : Darcie Washington) Tigre RN)Amniotic Fluid Color: Clear (11/30/17 0853 : Darcie Washington) Tigre RN)Additional Findings: NoneFETAL MONITORINGFHT: 150s Moderate/acelerations present/early decelerations/isolated latedecelerationsToco: 2-3 minutesCategory: IILABSDiagnostic tests reviewed for today's visit: Most recent labs and imagingresults.Assessment/ Plan27 year old EGA:39w0d. Admitted for augmentation for PROM1. GBS-2. Pit per protocol3. Epi in- pt comfortable4. s/[place]5. [place] [address]. anomalies- prominent cisterna magna, bilateral periventrcularnodular heterotopia, 2cm umbilical vein varix, nonvisualization ofgallbladder, samaria-cross pulmonary veins, thymic hypoplasia, moderatelydilated ascending aorta. . FTC plan in placed. Will need postnatalevaluation with Medical genetics and echocardiogram. Low risk cellfree DNA.7. Maternal Alcohol syndrome- has been consenting for care/guardianesince age 23.8. H/o maternal PDA- s/p repair as .9. Valvular insufficiency- Echo on 07/09/17 with EF 55%.10. H/o maternal clubfoot-s/p repair as [id number]. H/o tobacco abuse12. Cat II- Isolate late decelerations. Moderate variability. Continuingto make cervical change. Not on Cat II protocol.SIGNATURE: Marie Hassan DO PATIENT NAME: Zuleika LambATE: November 30, 2017 : 1:35 PM PAGER/CONTACT #: [phone] Normal [facility] PROGRESS HNO ID: [id number] thor: Yolanda (Joaquín) Suzyervice: ObstetricsAuthor Type: ResidentType: Progress NotesFiled: 11/30/2017 1:14 PMNote Text:OBSTETRICSINTRAPARTUM PROGRESS NOTESERVICE DATE: November 30, 2017SERVICE TIME: 1:11 PMSubjectivePt c/o nausea for which she gets if she does not eat. Pt requestingpopsicle. Pt comfortable with epidural.ObjectiveLAST VITALS:Pulse BP Resp O2 Sat Temp Pain 78 122/63 18 100 % 36.7 ?C (98.1 ?F) 8/10PHYSICAL EXAM:CERVICAL EXAM:Last Exam Notes: Dilation: 5 (11/30/17 1309 : Yolanda (Res) Romina)Effacement (%): 80 (11/30/17 1309 : Yolanda Barbosa)Station: -2 (11/30/17 1309 : Yolanda Barbosa)Presentation: (not recorded)MEMBRANES:Status: Membrane Status: Premature (11/30/17 0853 : Darcie (Karri) TigreRN)Rupture Date: 11/30/17 (11/30/17 0853 : Darcie Washington) Tigre RN)Rupture Time: 224 (11/30/17 0853 : Darcie Washington) Tigre RN)Amniotic Fluid Color: Clear (11/30/17 0853 : Darcie (Karri) Tigre RN)Additional Findings: NoneFETAL MONITORINGFHT: 145/mod/rare accel/+early decelToco: 1-3 minutesCategory: ILABSDiagnostic tests reviewed for today's visit: No new labsAssessment/Plan27 year old EGA:39w0d. Admitted for AOL PROM1. GBS-2. Pit per protocol3. Epi in- pt comfortable4. s/[place] [address]. anomalies- prominent cisterna magna, bilateral periventrcularnodular heterotopia, 2cm umbilical vein varix, nonvisualization ofgallbladder, samaria-cross pulmonary veins, thymic hypoplasia, moderatelydilated ascending aorta. . FTC plan in placed. Will need postnatalevaluation with Medical genetics and echocardiogram. Low risk cellfree DNA.7. Maternal Alcohol syndrome- has been consenting for care/guardianesince age 23.8. H/o maternal PDA- s/p repair as .9. Valvular insufficiency- Echo on 07/09/17 with EF 55%.10. H/o maternal clubfoot-s/p repair as [id number]. H/o tobacco abuseSIGNATURE: Yolanda Barbosa DO PATIENT NAME: Zuleika LambATE: November 30, 2017 : 1:11 PM PAGER/CONTACT #: [phone] Normal [facility] PROGRESS HNO ID: [id number] thor: Yolanda Almonteervice: ObstetricsAuthor Type: ResidentType: Progress NotesFiled: 11/30/2017 11:07 AMNote Text:OBSTETRICSINTRAPARTUM PROGRESS NOTESERVICE DATE: November 30, 2017SERVICE TIME: 11:05 AMSubjectivePatient with no complaints.ObjectiveLAST VITALS:Pulse BP Resp O2 Sat Temp Pain 75 142/75 18 100 % 36.6 ?C (97.9 ?F) 810PHYSICAL EXAM:CERVICAL EXAM:Last Exam Notes: Dilation: 1 (11/30/17 0648 : Marie N (Res) Lende)Effacement (%): 60 (11/30/17 0648 : Marie N (Res) Lende)Station: -2 (11/30/1748 : Marie N (Res) Lende)Presentation: (not recorded)MEMBRANES:Status: Membrane Status: Premature (11/30/17 0853 : Darcie (Karri) TigreRN)Rupture Date: 11/30/17 (11/30/17 0853 : Darcie Washington) Tigre RN)Rupture Time: 0225 (11/30/17 0853 : Darcie Washington) Tigre RN)Amniotic Fluid Color: Clear (11/30/17 0853 : Darcie (Karri) Tigre RN)Additional Findings: NoneFETAL MONITORINGFHT: 145/mod/+accels/neg decelsToco: 2-4 minutesCategory: ILABSDiagnostic tests reviewed for today's visit: No new labsAssessment/Plan27 year old EGA:39w0d. Admitted for augmentation of labor forPROM?1. GBS-2. Pit per protocol3. [place] [address]. [place] [address]. anomalies- prominent cisterna magna, bilateral periventrcularnodular heterotopia, 2cm umbilical vein varix, nonvisualization ofgallbladder, samaria-cross pulmonary veins, thymic hypoplasia, moderatelydilated ascending aorta. . FTC plan in placed. Will need postnatalevaluation with Medical genetics and echocardiogram. Low risk cellfree DNA.7. Maternal Alcohol syndrome- has been consenting for care/guardianesince age 23.8. H/o maternal PDA- s/p repair as infant.9. Valvular insufficiency- Echo on 1/23/18 with EF 55%.10. H/o maternal clubfoot-s/p repair as [id number]. H/o tobacco abuseSIGNATURE: Yolanda Barbosa DO PATIENT NAME: Zuleika LambATE: November 30, 2017 : 11:05 AM PAGER/CONTACT #: [phone] [facility] PROGRESS HNO ID: [id number] Author: Darcie MagañaRn) KARRI Landeros Service: Nursing Author Type: Registered Nurse Type: Progress Notes Filed: 11/30/2017 10:35 AM Note Text: Unable to find labwork for chart. Normal [facility] PROGRESS HNO ID: [id number] thor: Marie Lema (Res) LendeService: ObstetricsAuthor Type: ResidentType: Progress NotesFiled: 11/30/2017 10:33 AMNote Text:OBSTETRICSINTRAPARTUM PROGRESS NOTESERVICE DATE: November 30, 2017SERVICE TIME: 10:31 AMSubjectivePatient with no complaints.ObjectiveLAST VITALS:Pulse BP Resp O2 Sat Temp Pain 75 142/75 18 100 % 36.6 ?C (97.9 ?F) 8/10PHYSICAL EXAM:CERVICAL EXAM:Last Exam Notes: Dilation: 1 (11/30/17 0648 : Marie N (Res) Lende)Effacement (%): 60 (11/30/17 0648 : Marie N (Res) Lende)Station: -2 (11/30/17 0648 : Marie N (Res) Lende)Presentation: (not recorded)MEMBRANES:Status: Membrane Status: Premature (11/30/17 0853 : Darcie (Rn) TigreRN)Rupture Date: 11/30/17 (11/30/17 0853 : Darcie (Karri) Tigre, RN)Rupture Time: 0225 (11/30/17 0853 : Darcie (Karri) Tigre, RN)Amniotic Fluid Color: Clear (11/30/17 0853 : Darcie (Rn) Tigre, RN)Additional Findings: NoneFETAL MONITORINGFHT: 135s Moderate/acelerations present/decelerations absentToco: 2-4 minutesCategory: ILABSDiagnostic tests reviewed for today's visit: Most recent labs and imagingresults.Assessment/ Plan27 year old EGA:39w0d. Admitted for augmentation for PROM1. GBS-2. Pit per protocol3[place] [address]. [place] [address]. anomalies- prominent cisterna magna, bilateral periventrcularnodular heterotopia, 2cm umbilical vein varix, nonvisualization ofgallbladder, samaria-cross pulmonary veins, thymic hypoplasia, moderatelydilated ascending aorta. . FTC plan in placed. Will need postnatalevaluation with Medical genetics and echocardiogram. Low risk cellfree DNA.7. Maternal Alcohol syndrome- has been consenting for care/guardianesince age 23.8. H/o maternal PDA- s/p repair as .9. Valvular insufficiency- Echo on 07/09/17 with EF 55%.10. H/o maternal clubfoot-s/p repair as [id number]. H/o tobacco abuse?SIGNATURE: Marie Hassan DO PATIENT NAME: Zuleika LambATE: November 30, 2017 : 10:31 AM PAGER/CONTACT #: [phone] Normal [facility] PROGRESS HNO ID: [id number] thor: Darcie (Rn) ANEUDY Landeroservice: NursingAuthor Type: Registered NurseType: Progress NotesFiled: 11/30/2017 10:13 AMNote Text:Patient remains in shower. RN and boyfriend at side. EFM on telemetryand adjusted while patient in shower. Difficult to keep baby on. Normal [facility] PROGRESS HNO ID: [id number] thor: Yolanda (Res) SnyderService: ObstetricsAuthor Type: ResidentType: Progress NotesFiled: 11/30/2017 7:35 AMNote Text:In to place FB. Pt tolerated procedure well. Continues to leak clearfluid. Pt uncomfortable with contractions.Cat I FHT, reactive with accelsToco: 2-5 minsHeather Romina, PGY-1Obstetrics and GynecologyPager [phone]:34 AM [facility] Type and Screenon 11-30-2017 ABO group Nom (Bld) A Normal [facility] Comment on above: Performed By: #### T &S #### [facility] [address] [id number] Comment See Below Normal [facility] Comment on above: Result Comment: Scre en &/or Xmatch expires in 3 days at 12 midnight. Redraw patient at that time. Performed By: #### T &S #### [facility] [address] [address] RH Type Positive Normal [facility] Comment on above: Performed By: #### T &S #### [facility] [address] [address] Progress Noteon 11-28-2017 Comparator Operator Authentication Interface Message Text Routine VisitSubjective: Zuleika Villalta is being seen today for her obstetrical visit. She is at [id number]. Patient reports no complaints. Movement: normal. She isscheduled for IOL Saturday evening for anticipated Saturday delivery. Plans to haveher care with Dr. Ivan.HPIReview of SystemsReview of SystemsObjective: BP 121/76 Ht 167.6 cm Wt 87.5 kg (192 lb 14.4 oz) LMP 03/02/2017Physical ExamAAOx3, NADFHT: PositivePresentation: CephalicUterine Size: S=DPelvic Exam: No pelvic exam this visitAssessment:27 y.o. at 38w5d withActive Non-Hospital Problems Diagnosis Date Noted Bulging lumbar disc 10/25/2017 Anesthesia has not yet called her. She is amenable to speaking with them int hospital upon admission. Supervision of other high risk , antepartum 10/08/2017 PLAN OF CAREMD/OB APPOINTMENTSHow often should patient be evaluated? q 2 weeks from 32 to 36 weeks thenweekly until deliveryWork restrictions: noneFETAL EVALUATIONAntenatal surveillance: weekly BPPs starting at 32 weeks.Ultrasound: Serial growth ultrasounds every 4 weeks.DELIVERY PLANHospital: [facility] HospitalInduction at 39 weeks; CYTOTEC IOL 12-02-17 at 5 pm at [facility]. Pre-Procedure formdone (CG)GBS culture: neg 11/07/17Contraception: Considering LARC w/ Joaquim recommended Constipation during 10/08/2017 Improved Colace and miralax as needed complicated by umbilical cord varix, antepartum 08/14/2017 Stable in size. H/O repair of patent ductus arteriosus 07/19/2017 Echo 07/09/17, Naga Boswell MD Normal biventricular size and systolic function, EF 55% Trivial valvular insufficiency Low risk of maternal cardiovascular event during History of learning disability as a child 07/19/2017 Patient states that she was diagnosed with Alcohol Syndrome at birthand required special education through high school. She is her own guardian since the age of 23. Genetics consult. cardiac anomaly complicating , antepartum 07/18/2017 Dilated aortic root. Large umbilical cord varix, dolichocephaly (no longernoted). Tortuous IVC/SVC S/P echo [facility] POC reviewedShe would like her follow up and contraception with Dr. Ivan.The total patient time of the visit was 15 minutes, of which greater than 50% ofthe time was spent counseling and coordinating care. Normal [facility] Progress Noteon 11-22-2017 Comparator Operator Authentication Interface Message Text [facility] plan of care faxed to [facility] in event pt would arrive for urgent management. Normal [facility] Progress Noteon 11-21-2017 Comparator Operator Authentication Interface Message Text Routine VisitSubjective: Zuleika Villalta is being seen today for her obstetrical visit. She is at [id number]. Patient reports that she went to [facility] last night due toconcerns for labor. She had constant back pain that is improved today. Uponarrival to triage, she was not lu and therefore her cervix was notexamined. She denies contractions, vaginal bleeding or leaking fluid today. Movement: normal.HPIReview of SystemsReview of SystemsConstitutional: Negative for fever and chills.Eyes: Negative for visual disturbance.Respiratory: Negative for shortness of breath.Cardiovascular: Negative for chest pain.Gastrointestinal: Negative for nausea, vomiting, abdominal pain, diarrhea andconstipation.Genitourin daniela: Negative for dysuria, vaginal bleeding and vaginal discharge.Neurological: Negative for weakness, light-headedness, numbness and headaches.Psychiatric/Beha vioral: Negative for dysphoric mood.Objective: BP 108/78 Wt 88 kg (194 lb 0.1 oz) LMP 03/02/2017Physical ExamNursing note and vitals reviewed.Constitutional: She is oriented to person, place, and time. She appearswell-developed and well-nourished. No distress.Pulmonary/Chest: No respiratory distress.Abdominal: Soft. She exhibits no distension. There is no tenderness. There is norebound and no guarding.No RUQ pain or CVA tendernessMusculoskeletal: She exhibits no edema or tenderness.Neurological: She is alert and oriented to person, place, and time.Skin: Skin is warm and dry. She is not diaphoretic.Psychiatric: She has a normal mood and affect. Her behavior is normal. Judgmentand thought content normal.FHT: 132Presentation: CephalicUterine Size: S=DPelvic Exam: No pelvic exam this visitAssessment/Plan:27 y.o. at 37w5d withActive Non-Hospital Problems Diagnosis Date Noted Bulging lumbar disc 10/25/2017 Anesthesia has not yet called her. She is amenable to speaking with them int hospital upon admission. Supervision of other high risk , antepartum 10/08/2017 PLAN OF CAREMD/OB APPOINTMENTSHow often should patient be evaluated? q 2 weeks from 32 to 36 weeks thenweekly until deliveryWork restrictions: noneFETAL EVALUATIONAntenatal surveillance: weekly BPPs starting at 32 weeks.Ultrasound: Serial growth ultrasounds every 4 weeks.DELIVERY PLANHospital: [facility] HospitalIn[facility] at 39 weeks; CYTOTEC IOL 618-18 at 5 pm at [facility]. Pre-Procedure formdone (CG)GBS culture: neg 11/07/17Contraception: Considering LARC w/ AdairTDAP recommended Constipation during 10/08/2017 Improved Colace and miralax as needed complicated by umbilical cord varix, antepartum 08/14/2017 Stable in size. H/O repair of patent ductus arteriosus 07/19/2017 Echo 07/09/17, Naga Boswell MD Normal biventricular size and systolic function, EF 55% Trivial valvular insufficiency Low risk of maternal cardiovascular event during History of learning disability as a child 07/19/2017 Patient states that she was diagnosed with Alcohol Syndrome at birthand required special education through high school. She is her own guardian since the age of 23. Genetics consult. cardiac anomaly complicating , antepartum 07/18/2017 Dilated aortic root. Large umbilical cord varix, dolichocephaly (no longernoted). Tortuous IVC/SVC S/P echo in the [facility] POC reviewedFollow up in one week for OB visit and BPP. The patient is scheduled for IOL on12/02/17.Oksana amado MD Normal [facility] Progress Noteon 11-12-2017 Comparator Operator Authentication Interface Message Text Call from [facility] that pt presented there in labor. [facility] plan of care and ACOGs faxed by Toan Chen. Provided after hours MFM number provided. Normal [facility] Group B Strep Cultureon 10-16 Group B Strep Culture Group B Strep Cult ure: No Group B Streptococci isolated. Source: VAG Collected: 11/07/17 09:00 Site: Vaginal/Rectal Received : 11/07/17 22:01Group B Strep Culture FINAL 11/10/17 08:34 No Group B Streptococci isolated. Normal [facility] Comment on above: Performed By: #### [facility] ####[facility] [address] [phone] Progress Noteon 11-07-2017 Comparator Operator Authentication Interface Message Text Routine VisitSubjective: Zuleika Villalta is being seen today for her obstetrical visit. She is at [id number]. Patient reports occasional nausea. No emesis. She deniescontractions, vaginal bleeding or leaking fluid. Movement: normal.HPIReview of SystemsReview of SystemsConstitutional: Negative for fever and chills.Eyes: Negative for visual disturbance.Respiratory: Negative for shortness of breath.Cardiovascular: Negative for chest pain.Gastrointestinal: Positive for nausea. Negative for vomiting, abdominal pain,diarrhea and constipation.Genitourinary : Negative for dysuria.Neurological: Negative for dizziness, weakness, numbness and headaches.Psychiatric/Beha vioral: Negative for behavioral problems and dysphoric mood.Objective: BP 112/68 Wt 86.6 kg (191 lb) LMP 03/02/2017Physical ExamNursing note and vitals reviewed.Constitutional: She is oriented to person, place, and time. She appearswell-developed and well-nourished. No distress.Pulmonary/Chest: No respiratory distress.Abdominal: Soft. She exhibits no distension. There is no tenderness. There is norebound and no guarding.No CVA tendernessMusculoskeletal: She exhibits no edema or tenderness.Neurological: She is alert and oriented to person, place, and time.Skin: Skin is warm and dry. She is not diaphoretic.Psychiatric: She has a normal mood and affect. Her behavior is normal. Judgmentand thought content normal.FHT:143Presentation : CephalicUterine Size: S=DPelvic Exam: closed/70/-3/soft/midAsses sment/Plan:27 y.o. at 35w5d withActive Non-Hospital Problems Diagnosis Date Noted Bulging lumbar disc 10/25/2017 Anesthesia has not yet called her. She is amenable to speaking with them inthe hospital upon admission. Supervision of other high risk , antepartum 10/08/2017 PLAN OF CAREMD/OB APPOINTMENTSHow often should patient be evaluated? q 2 weeks from 32 to 36 weeks thenweekly until deliveryWork restrictions: noneFETAL EVALUATIONAntenatal surveillance: weekly BPPs starting at 32 weeks.Ultrasound: Serial growth ultrasounds every 4 weeks.DELIVERY PLANHospital: [facility] HospitalInduction at 39 weeksGBS culture: collected and sent on 11/07/17Contraception: Considering LARC w/ AdairTDAP recommended Constipation during 10/08/2017 Improved Colace and miralax as needed complicated by umbilical cord varix, antepartum 08/14/2017 Stable in size. H/O repair of patent ductus arteriosus 07/19/2017 Echo 07/09/17, Naga Boswell MD Normal biventricular size and systolic function, EF 55% Trivial valvular insufficiency Low risk of maternal cardiovascular event during History of learning disability as a child 07/19/2017 Patient states that she was diagnosed with Alcohol Syndrome at birthand required special education through high school. She is her own guardian since the age of 23. Genetics consult. cardiac anomaly complicating , antepartum 07/18/2017 Dilated aortic root. Large umbilical cord varix, dolichocephaly (no longernoted). Tortuous IVC[facility] POC reviewedFollow up in one week for OB visit and BPP.Oksana Amado MD Normal [facility] Progress Noteon 10-24-2017 Comparator Operator Authentication Interface Message Text Routine VisitSubjective: Zuleika Villalta is a 27 y/o at 33w5d being seen today for herobstetrical visit. She denies any obstetric complaints and reports normal fetalmovement.She is accompanied by her partner.Zuleika denies any cramping, contractions, vaginal bleeding, unusual orincrease in vaginal discharge, signs and symptoms of pre-eclampsia, or leakingof any fluid. Patient with positive movement.Review of SystemsReview of SystemsAll other systems reviewed and are negative.Objective: BP 110/60 Wt 87.7 kg (193 lb 5.5 oz) LMP 03/02/2017Physical ExamFHT: PositivePresentation: CephalicUterine Size: S=DPelvic Exam: No pelvic exam this visit US: Biophysical profile is 8/8. Normal amniotic fluid volume. An umbilical veinvarix was again visualized.Assessment/Plan 27 y.o. at 33w5d withActive Non-Hospital Problems Diagnosis Date Noted Bulging lumbar disc 10/25/2017 Refer for Anesthesia consultation Supervision of other high risk , antepartum 10/08/2017 PLAN OF CAREMD/OB APPOINTMENTSHow often should patient be evaluated? q 2 weeks from 32 to 36 weeks thenweekly until deliveryWork restrictions: noneFETAL EVALUATIONAntenatal surveillance: weekly BPPs starting at 32 weeks.Ultrasound: Serial growth ultrasounds every 4 weeks.DELIVERY PLANHospital: [facility] HospitalInduction at 39 weeksGBS culture:Contraception: Considering LARC w/ AdairTDAP recommended Constipation during 10/08/2017 Improved Colace and miralax as needed complicated by umbilical cord varix, antepartum 08/14/2017 Stable in size. H/O repair of patent ductus arteriosus 07/19/2017 Echo 07/09/17, Naga Boswell MD Normal biventricular size and systolic function, EF 55% Trivial valvular insufficiency Low risk of maternal cardiovascular event during History of learning disability as a child 07/19/2017 Patient states that she was diagnosed with Alcohol Syndrome at birthand required special education through high school. She is her own guardian since the age of 23. Genetics consult.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 approval is notnecessary. This test is used for clinical purposes. It should not beregarded as investigational or for research. This laboratory iscertified under the Clinical Laboratory Improvement Amendments of 1988(CLIA-88) as qualified to perform high complexity clinical laboratorytesting.REFERENCE: Rhonda NICOLE, Bindu E, Kristin M, Cj RV. Fluorescence in situhybridization detection of chromosome 22q11.2 microdeletions invelocardiofacial syndrome patients with widely variable manifestations. Am J Med [place] 66:250-256,1995. BIGG GARCIA, PH.D., DABMG, FCCMG 08/16/2017 Performed By: #### F MARIA ####[facility] [address] [phone] Progress Noteon 08-13-2017 Comparator Operator Authentication Interface Message Text Met with patient and FOB, Aaron BranchKelsi for enlarged aortic root. Medical, surgical and family hx reviewedPsycho/Social risk:Support System: FOB and extended familyFinancial Stressors: recent job loss for FOB. Pt on SSIFamily Dynamics: Lives with FOBBehavioral Health Issues: Pt denies specific learning disability but is on SSI.Appropriately completed history information. Voiced her understanding of fetalechocardiogram findings but indicates she still feels somewhat confused withfull understanding of findingsWork History: unemployed. 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 Pt plans [place] [facility]. Currently with Dr. Shekhar Dyson.Pony Worker is undecided. ACHP list provided and discussed importance ofselection prior to delivery. Female fetus- name is AubrionnaMethod of feeding: breast. Breast feeding booklet givenUltrasound findings today: See report in procedures for details. echocardiogram with Dr. Patel: preliminary finding: Enlarged aorta,umbilical varix, hypoplasia of thymus concerning for diGeorgePt will follow up monthly for reevaluation of growth.Reinforced continued OB care with Shekhar until coordinate a transfer of carearound 32-34 weeks.Referral to Mick AGUIRRE for resources due to unemployment and EPDS scoring. MRI ordered for enlarged cisterna magna.The total patient time of the visit was 15 minutes, of which greater than 50% ofthe time was spent counseling and coordinating care. Normal [facility] Comparator Operator Authentication Interface Message Text Thank you for consulting us regarding this patient.I saw this patient in echocardiographic clinic on 08/13/2017Patient was referred to the echocardiographic clinic for a fetalechocardiogram since there was a aorta dilation on OB ultrasound andmaternal history of congenital heart defect that is she had a PDA which wassurgically treated at 4 months of age as per patient. 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 echocardiogram: Position; VertexSegmental anatomy:There was levocardia with situs solitus of atria and viscera. Atrioventricularand ventriculoarterial concordance seen.Atria:Normal left and right atrial size. There was a patent foramen ovale, hrsovyjmv-nr-cmgr shunt.Tricuspid valve:Normal tricuspid valve. There was normal Doppler across the tricuspid valve.Mitral valve:Normal mitral valve. There was normal Doppler across the mitral valve.Right ventricle:There was normal size and systolic function.Left ventricle:There was normal size and systolic function.Aortic valve:Normal aortic valve. There was normal Doppler across the aortic valve seen.Pulmonary valve:Normal pulmonary valve. There was normal Doppler across the pulmonary valveseen.Ventricular septum:There was no obvious ventricular septal defect seen.Main pulmonary artery:Normal main pulmonary artery.Pulmonary arteries:Samaria cross pulmonary arteries. Good size branch pulmonary arteries.Pulmonary veins:There were at least 2/4 pulmonary veins seen entering into the left atrium.Systemic venous return:There was normal systemic venous return seen.There was umbilical vein varix was noted and measures 12.2mmAortic arch:Left Patent aortic arch.Ascending aorta was moderately dilatedDuctal arch:Patent Ductal arch.3-vessel view:There was abnormal 3-vessel view, ascending aorta was moderately dilated.SVC=3.6mm. AO=7.3mm and MPA=5.5mmDuctus venosus:There was normal flow pattern seen in the ductus venosus.Umbilical artery and umbilical vein.There was normal pulse Doppler in umbilical artery and umbilical vein.Rhythm:There appeared to be a sinus rhythm. There was no arrhythmia noted.Thymic hypoplasia. thymic thoracic ratio (TT-ratio)= 0.1 ( TT-ratio 0.44in normal fetuses and in fetuses with CHD and microdeletion 22q11, the ratiobeing below 0.3 )Impression and recommendations.1) Abnormal 3-vessel view, ascending aorta was moderately dilated. 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 On further inquiry patientwas born with club foot, she has speech problem, some degree of learningdisability and feeding issues when she was a small child.7) OB to screen to R/O Digeorge syndrome (22 q 11) AND OTHER CHROMOSOMALabnormalities. May also consider connective tissue disease. RecommendAmniocentesis.8) I have discussed the limitations of echocardiographic examination, thatis likely to miss small ventricular septal defects as well as mild semilunarvalve stenosis. Patent foramen ovale and patent ductus arteriosus are normalfindings in utero. Coarctation of aorta is difficult to diagnose pre natally inthe presence of patent ductus arteriosus.9) I have also discussed echocardiographic findings in detail includingfetal circulation, pathophysiology of Patent foramen ovale and Patent ductusarteriosus, prognosis, medical and surgical treatments, follow up fetalechocardiograms and follow ups.10) Follow up echocardiogram in 4-6 [address].11) Dr Rodney have seen images and took some additional pictures as well. Heagrees with the above findings and recommendations.Counseling and/or coordination of care was greater than 35 minutes which is morethan 50% of the total time of 60 minutes spent on the encounter. Normal [facility] Progress Noteon 07-18-2017 Comparator Operator Authentication Interface Message Text [facility] MATERNAL- MEDICINE CONSULTReferring/Requestin g Provider: VINI FranklinCP: EXTERNAL PROVIDERINDICATION FOR CONSULT: maternal history of PDA, repaired as a baby and elisa from complications with PDAHISTORY OF PRESENT ILLNESS:Patient is a 27 y.o. at 19w6d who presents for consultation regardingher cardiac history. Of note, on her ultrasound there were some abnormalfetal findings, including enlarged aorta in the 3 vessel view as well asenlargement of the aortic root in the LVOT view, large UV varix anddolichocephaly. Zuleika and her boyfriend, Hema, indicated that terminationof is not an option for them regardless of any diagnosis.Zuleika feels well. She has no limitations from a cardiac standpoint. Has noshortness of breath, chest pain or pressure, no palpitations. She usually doesnot see a radiation physicist, but did have a recent echo due to .OB HistoryGravida Para Term AB Living2 0 1SAB TAB Ectopic Multiple Live Births1# Outcome Date GA Lbr Nam/2nd Weight Sex Delivery Anes PTL Lv2 Current1 SAB 2015Obstetric CommentsNo D&C needed-miscarried very early.Past Medical History:Diagnosis Date Anxiety Bipolar 1 disorder Breast disorder she was advised by her doctor to have a breast reduction, and since she hadthis, is ok now Depression Depression Encounter for blood transfusion Gastrointestinal complaints, nonspecific GERD (gastroesophageal reflux disease) Seasonal allergies Urinary tract infection hasnt had a bladder infection pt states since over a year UTI (urinary tract infection)Past Surgical History:Procedure Laterality Date BREAST REDUCTION SURGERY CARDIAC SURGERY PDA repair at 4 months of age FOOT SURGERY clubfoot surgery as an infantPERTINENT FAMILY HISTORY:Family HistoryProblem Relation Age of Onset Heart Disease Brother passed in infancy due to PDA Defects Maternal Grandmother double clubfoot Clotting Disorder Maternal Grandmother Diabetes Mellitus II Maternal Grandmother Stroke Maternal Grandmother Heart Disease Maternal Grandmother FL Clotting Disorder Maternal Grandfather Miscarriages / Stillbirths Paternal Grandmother Stroke Paternal Grandmother Heart Disease Paternal Grandmother MIMEDS:Outpatient Prescriptions Marked as Taking for the 07/18/17 encounter (OfficeVisit) with Clara Jama, DOMedication Sig Dispense Refill Vit-Fe Fumarate-FA ( VITAMIN PO) Take 1 Tab by mouth daily Ondansetron (ZOFRAN ODT PO) Take by mouth Taking this daily at first, but nowabout every other day.ALLERGY:AllergiesAller gen Reactions Molds & Smuts Anaphylaxis and Other (See Comments) Hives and anaphylaxis Bee Venom Hives and Other (See Comments) Not sure what else Penicillins Other (See Comments) Anything related to Penicillin-not sure of reaction;was an infant at the timeof reaction Sulfa Antibiotics SwellingREVIEW OF SYSTEMS:As mentioned above and in Subjective, all other Review of Systems reviewed andnegative.PHYSICAL EXAM:VITAL SIGNS: BP 131/78 Ht 167.6 cm Wt 80.6 kg (177 lb 11.1 oz) LMP03/02/2017 BMI 28.68 kg/m General Appearance: Alert, appropriate appearance for age. No acute distressHEENT: NCAT, EOMIResp: breathing comfortablyAbd: soft, gravid, S=D, NTTPExt: no pitting edemaIMAGING:See report.IMPRESSION:Zuleika is a27 y.o. at 19w6d withActive Non-Hospital Problems Diagnosis Date Noted H/O repair of patent ductus arteriosus 07/18/2017 Echo 07/09/17, Naga Boswell MD Normal biventricular size and systolic function, EF 55% Trivial valvular insufficiency Low risk of maternal cardiovascular event during echo recommended History of learning disability as a child 07/18/2017 Consider evaluation with social work assistant to assess for any needs duringpregnancy or after. Will have genetic consult with [facility] evaluation. cardiac anomaly complicating , antepartum 07/18/2017 Dilated aortic root seen on ultrasound along with large umbilical cordvarix, dolichocephaly DW Dr. Zazueta, verbal order to refer to [facility] Will be scheduled with pediatric cardiology. Also, patient and family members have a history of learning disabilities,including an individual learning plan in school. She will talk to her familymembers and bring as much information as is available for her genetics consult.She has transportation to [place] and is [facility]The total patient time of the visit was 30 minutes, of which was greater than50% of the time was spent counseling and coordinating care. Normal [facility] IGP W/hpv Rfx [id number] 05-07 Diagnosis: See Ref Lab Report Normal [facility] Comment on above: Order Comment: Thin Prep. Performed By: #### 2 [id number] ####KADEN [address] [place] [address] C Urineon 05-03-2017 C Urine Final Report: Normal skin alonso isolated Normal [facility] Comment on above: Performed By: #### 2 [id number] ####KADENMorelia [address]airdJoiAicz[address] [place] [address] RPRon 05-03-2017 RPR Ql Non-Reactive Normal Non-Reactiv e [facility] Comment on above: Performed By: #### 2 [id number] ####KADENMorelia BairdFxqPupw0898 [place] [address] Hep Bs Agon 05-02-2017 BSA (Body Surface Area) Negative Normal Negative [facility] Comment on above: Result Comment: Perf ormed At: [facility] [address] [id number] Vincent PhD Ph:[phone] Performed By: #### 2 [id number] ####KADENMorelia BairdWiqQfcd7071 [place] [address] ABO/Rh Echoon 05-01-2017 ABO/Rh E Interp... Positive Normal [facility] Comment on above: Performed By: #### 2 [id number] ####KADEN L[address]Xphs[address] [place] [address] Antibody Screen Cap...on Screen Interp... Negative Normal [facility] Comment on above: Performed By: #### 2 [id number] ####KADENMorelia BairdFvkLuvf[address] [place] [address] Auto Diffon 05-01-2017 Basophils Auto #/vol (Bld) 0.0 E3/mcL Normal 0.0-0.2 [facility] Comment on above: Order Comment: Order Added by Discern Expert. Performed By: #### 2 [id number] ####KADEN Urinalysis Manual [address] [place] [address] Basophils/100 WBC Auto (Bld) 0.4 % Normal 0.0-2.0 [facility] Comment on above: Order Comment: Order Added by Discern Expert. Performed By: #### 2 [id number] ####KADEN Urinalysis Manual [address] [place] [address] Eos Absolute 0.1 E3/mcL Normal 0.0-0.7 [facility] Comment on above: Order Comment: Order Added by Discern Expert. Performed By: #### 2 [id number] ####KADEN Urinalysis Manual [address] [place] [address] Eosinophils/100 leukocytes 0.7 % Normal 0.0-11.0 [facility] Comment on above: Order Comment: Order Added by Discern Expert. Performed By: #### 2 [id number] ####KADEN Urinalysis Manual [address] [place] [address] Lymphocytes 1.8 E3/mcL Normal 1.2-3.4 [facility] Comment on above: Order Comment: Order Added by Discern Expert. Performed By: #### 2 [id number] ####KADEN Urinalysis Manual [address] [place] [address] Lymphocytes/100 leukocytes 17.1 % Low 20.0-55.0 [facility] Comment on above: Order Comment: Order Added by Discern Expert. Performed By: #### 2 [id number] ####KADEN Urinalysis Manual [address] [place] [address] Barbour Absolute 0.5 E3/mcL Normal 0.0-0.7 [facility] Comment on above: Order Comment: Order Added by Discern Expert. Performed By: #### 2 [id number] ####KADEN Urinalysis Manual [address] [place] [address] Monocytes/100 leukocytes 5.0 % Normal 0.0-10.0 [facility] Comment on above: Order Comment: Order Added by Discern Expert. Performed By: #### 2 038624 ####KADEN Urinalysis Manual [address] [place], [place] [id number] Neutro Absolute 8.0 E3/mcL High 1.4-6.5 [facility] Comment on above: Order Comment: Order Added by Discern Expert. Performed By: #### 2 [id number] ####KADEN Urinalysis Manual [address] [place] [address] Neutro Auto 76.8 % High 37.0-75.0 [facility] Comment on above: Order Comment: Order Added by Discern Expert. Performed By: #### 2 [id number] ####KADEN Urinalysis Manual [address] [place] [address] CBC w/ Auto Diffon 7 Erythrocyte distribution width Auto Ratio (RBC) 15.2 % High 11.5-14.5 [facility] Comment on above: Performed By: #### 2 [id number] ####KADEN Urinalysis Manual [address] [place] [address] Erythrocytes (RBC) 4.90 E6/mcL Normal 3.90-5.40 [facility] Comment on above: Performed By: #### 2 [id number] ####KADEN Urinalysis Manual [address] [place] [address] Hematocrit (HCT) 41.1 % Normal 36.0-48.0 [facility] Comment on above: Performed By: #### 2 [id number] ####KADEN Urinalysis Manual [address] [place] [address] Hemoglobin mass conc (Bld) 13.5 g/dL Normal 12.0-16.0 [facility] Comment on above: Performed By: #### 2 [id number] ####KADEN Urinalysis Manual [address] [place] [address] MCH 27.5 pg Normal 27.0-31.0 [facility] Comment on above: Performed By: #### 2 756102 ####KADEN Urinalysis Manual [address] [place] [address] MCHC mass conc (RBC) 32.8 g/dL Low 33.0-37.0 [facility] Comment on above: Performed By: #### 2 660151 ####KADEN Urinalysis Manual [address] [place] [address] MCV 83.9 fL Normal 78.0-100.0 [facility] Comment on above: Performed By: #### 2 404514 ####KADEN Urinalysis Manual [address] [place] [address] Platelet mean volume (PMV) 8.0 fL Normal 7.4-11.0 [facility] Comment on above: Performed By: #### 2 934115 ####K[place]EN [place] [address] Platelets 246 E3/mcL Normal 130-400 [facility] Comment on above: Performed By: #### 2 645455 ####KADEN Urinalysis Manual [place] [id number] WBC (Leukocytes) 10.4 E3/mcL Normal 3.6-11.0 [facility] Comment on above: Performed By: #### 2 937342 ####K[place] [address] Chlamydia GC by PCRon 2016 Chlamydia by PCR. Not Detected Normal Not Detected [facility] Comment on above: Result Comment: Xper t CT/NG Assay performance has not been evaluated in patients less than 14 years of age. Performed By: #### 2 700590 ####KADEN [address] [place] [address] Gonorrhoeae by PCR Not Detected Normal Not Detected [facility] Comment on above: Result Comment: Xper t CT/NG Assay performance has not been evaluated in patients less than 14 years of age. Performed By: #### 2 [id number] ####KADEN [address]ajJqdh[address] [place] [address] HIV-1/2 Ag/Abon 05-01-2017 HIV-1/2 Ag/Ab Non-Reactive Normal Non-Reactiv e [facility] Comment on above: Performed By: #### 2 [id number] ####KADEN Urinalysis Manual [place] [id number] Rubella IgG Lvlon 05-01-2017 Rubella IgG Lvl 50.8 (POS) Normal [facility] Comment on above: Result Comment: <10I U/ml NON REACTIVE: NOT NLGYDH10-56 IU/ml RUBELLA SPECIFIC AB PRESENT, EVALUATEFURTHER TO DETERMINE IMMUNE STATUS >15 IU/ml REACTIVE, IMMUNE Performed By: #### 2 [id number] ####KADEN [address]OfwRicc[address] [place] [address] Auto Diffon 04-22-2017 Basophils Auto #/vol (Bld) 0.1 E3/mcL Normal 0.0-0.2 [facility] Comment on above: Order Comment: Order Added by Discern Expert. Performed By: #### 2 690013 ####KADEN Urinalysis Manual [address] [place] [address] Basophils/100 WBC Auto (Bld) 0.6 % Normal 0.0-2.0 [facility] Comment on above: Order Comment: Order Added by Discern Expert. Performed By: #### 2 673047 ####KADEN Urinalysis Manual [address] [place] [address] Eos Absolute 0.0 E3/mcL Normal 0.0-0.7 [facility] Comment on above: Order Comment: Order Added by Discern Expert. Performed By: #### 2 [id number] ####KADEN Urinalysis Manual [address] [place] [address] Eosinophils/100 leukocytes 0.2 % Normal 0.0-11.0 [facility] Comment on above: Order Comment: Order Added by Discern Expert. Performed By: #### 2 216221 ####KADEN [place] [address] Lymphocytes 1.5 E3/mcL Normal 1.2-3.4 [facility] Comment on above: Order Comment: Order Added by Discern Expert. Performed By: #### 2 583200 ####KADEN Urinalysis Manual [address] [place] [address] Lymphocytes/100 leukocytes 10.8 % Low 20.0-55.0 [facility] Comment on above: Order Comment: Order Added by Discern Expert. Performed By: #### 2 914554 ####KADEN Urinalysis Manual [address] [place] [address] Barbour Absolute 0.6 E3/mcL Normal 0.0-0.7 [facility] Comment on above: Order Comment: Order Added by Discern Expert. Performed By: #### 2 017229 ####KADEN Urinalysis Manual [address] [place] [address] Monocytes/100 leukocytes 4.4 % Normal 0.0-10.0 [facility] Comment on above: Order Comment: Order Added by Discern Expert. Performed By: #### 2 783785 ####KADEN Urinalysis Manual [address] [place] [address] Neutro Absolute 11.3 E3/mcL High 1.4-6.5 [facility] Comment on above: Order Comment: Order Added by Discern Expert. Performed By: #### 2 672119 ####KADEN Urinalysis Manual [address] [place] [address] Neutro Auto 84.0 % High 37.0-75.0 [facility] Comment on above: Order Comment: Order Added by Discern Expert. Performed By: #### 2 727116 ####KADEN Urinalysis Manual [address] [place] [address] BMPon 04-22-2017 BUN/Creatinine Ratio Unable to calc Normal 5.4-30.0 [facility] Comment on above: Performed By: #### 2 884839 ####KADEN Urinalysis Manual [address] [place] [address] Creatinine mg/dL Low 0.6-1.3 [facility] Comment on above: Performed By: #### 2 246868 ####KADEN Urinalysis Manual [address] [place] [address] Urea nitrogen 7 mg/dL Normal 7-18 [facility] Comment on above: Performed By: #### 2 453070 ####KADEN Urinalysis Manual [address] [place] [address] Calcium 9.6 mg/dL Normal 8.4-10.2 [facility] Comment on above: Performed By: #### 2 807572 ####KADEN Urinalysis Manual [address] [place] [address] Chloride 103 mmol/L Normal 98-107 [facility] Comment on above: Performed By: #### 2 382135 ####KADEN Urinalysis Manual [address] [place] [address] CO2 21.7 mmol/L Low 24.0-30.0 [facility] Comment on above: Performed By: #### 2 377635 ####KADEN Urinalysis Manual [address]cp[address] [place] [address] Glucose mass conc 89 mg/dL Normal 70-99 [facility] Comment on above: Performed By: #### 2 [id number] ####KADEN Urinalysis Manual [address] [place] [address] Potassium molar conc 3.6 mmol/L Normal 3.5-5.1 [facility] Comment on above: Performed By: #### 2 [id number] ####KADEN Urinalysis Manual [address]yuejbhj[address] [place] [address] Sodium 136 mmol/L Normal 136-145 [facility] Comment on above: Performed By: #### 2 398926 ####KADEN Urinalysis Manual Adjbfiriza3535[address] [place] [address] CBC w/ Auto Diffon 7 Erythrocyte distribution width Auto Ratio (RBC) 14.8 % High 11.5-14.5 [facility] Comment on above: Performed By: #### 2 [id number] ####KADEN Urinalysis Manual Xtyhwxutnl0995[address] [place] [address] Erythrocytes (RBC) 4.96 E6/mcL Normal 3.90-5.40 [facility] Comment on above: Performed By: #### 2 129176 ####KADEN Urinalysis Manual Fmebeldkci0756[address] [place] [address] Hematocrit (HCT) 40.9 % Normal 36.0-48.0 [facility] Comment on above: Performed By: #### 2 856719 ####KADEN Urinalysis Manual Vmbeevmhtg[address] [place], [place] [id number] Hemoglobin mass conc (Bld) 13.5 g/dL Normal 12.0-16.0 [facility] Comment on above: Performed By: #### 2 223076 ####KADEN Urinalysis Manual Mlxfkpjlil[address] [place] [address] MCH 27.2 pg Normal 27.0-31.0 [facility] Comment on above: Performed By: #### 2 287504 ####KADEN Urinalysis Manual Nsbnnddfbf5597 [place] [address] MCHC mass conc (RBC) 33.0 g/dL Normal 33.0-37.0 [facility] Comment on above: Performed By: #### 2 349509 ####KADEN Urinalysis Manual Hjayegfxvm3574[address] [place] [address] MCV 82.4 fL Normal 78.0-100.0 [facility] Comment on above: Performed By: #### 2 896652 ####KADEN Urinalysis Manual Mwwjbxvyqw5945[address] [place] [address] Platelet mean volume (PMV) 8.0 fL Normal 7.4-11.0 [facility] Comment on above: Performed By: #### 2 225668 ####KADEN Urinalysis Manual Ljdlvxxwef9939[address] [place] [address] Platelets 237 E3/mcL Normal 130-400 [facility] Comment on above: Performed By: #### 2 166745 ####KADEN Urinalysis Manual Fbazalezmk3786[address] [place] [address] WBC (Leukocytes) 13.5 E3/mcL High 3.6-11.0 [facility] Comment on above: Performed By: #### 2 752580 ####KADEN Urinalysis Manual Aktcqhlklg5432[address] [place] [address] UA Completeon 04-22-2017 UA Blood Negative Normal Negative [facility] Comment on above: Performed By: #### 2 469908 ####KADEN Urinalysis Manual Dxwwrmrehg8528[address] [place] [address] UA Ascorbic Acid 40 mg/dL High <=19 [facility] Comment on above: Performed By: #### 2 030464 ####KADEN Urinalysis Manual Wzsarzofqb4627[address] [place] [address] UA Bacteria 3+ /HPF Abnormal None [facility] Comment on above: Performed By: #### 2 491733 ####KADEN Urinalysis Manual Aenwjejtru9711[address] [place] [address] UA Clarity SltCloudy Abnormal Clear [facility] Comment on above: Performed By: #### 2 922012 ####KADEN Urinalysis Manual Pygagirobw[address] [place] [address] UA Leuk Est Negative Normal Negative [facility] Comment on above: Performed By: #### 2 045287 ####KADEN Urinalysis Manual Khcrafrgri[address] [place] [address] UA Mucous Few Abnormal Trace [facility] Comment on above: Performed By: #### 2 057300 ####KADEN Urinalysis Manual Muterxekak308[address] [place] [address] UA Nitrite Negative Normal Negative [facility] Comment on above: Performed By: #### 2 224163 ####KADEN Urinalysis Manual Kkhewmialp3409[address] [place] [address] UA pH 8.0 Normal 4.6-8.0 [facility] Comment on above: Performed By: #### 2 913897 ####KADEN Urinalysis Manual Rnjhcvmybz512[address] [place] [address] UA Protein Negative Normal Negative [facility] Comment on above: Performed By: #### 2 628729 ####KADEN Urinalysis Manual Xruwpqtejw9338[address] [place] [address] UA Spec Grav 1.012 Normal 1.003-1.030 [facility] Comment on above: Performed By: #### 2 600000 ####KADEN Urinalysis Manual Pklzkkgqmg[address] [place] [address] UA Squam Epithelial 0-5 Normal 0-5 [facility] Comment on above: Performed By: #### 2 769753 ####KADEN Urinalysis Manual Hhsdviecbv[address] [place] [address] UA Urobilinogen Negative Normal [facility] Comment on above: Performed By: #### 2 318945 ####KADEN Urinalysis Manual Hpyuuyopea[address] [place] [address] UA WBC 0-5 Normal 0-5 [facility] Comment on above: Performed By: #### 2 739512 ####KADEN Urinalysis Manual Xiaczgnoum7320[address] [place], [place] [id number] Urine, color Yellow Normal Yellow [facility] Comment on above: Performed By: #### 2 587534 ####KADEN Urinalysis Manual Taswmqirvk9754 [place] [address] Urine, glucose Negative Normal Negative [facility] Comment on above: Performed By: #### 2 352438 ####KADEN Urinalysis Manual Wswdubbgts8768[address] [place] [address] Urine, ketones presence 1+ Abnormal Negative [facility] Comment on above: Performed By: #### 2 174106 ####KADEN Urinalysis Manual Toxcfrldql022[address] [place] [address] Urine, urobilinogen Negative Normal Negative [facility] Comment on above: Performed By: #### 2 984051 ####KADEN Urinalysis Manual Abtxsgxcbm3832[address] [place] [address] eGFRon 04-22-2017 eGFR AA >60 Normal [facility] Comment on above: Order Comment: Order added by Discern Expert. Performed By: #### 2 300203 ####KADEN Urinalysis Manual Ntrasenncg9215[address] [place] [address] eGFR (non-black) mL/min/{1.73_m2} Normal [facility] Comment on above: Order Comment: Order added by Discern Expert. Performed By: #### 2 338372 ####KADEN Urinalysis Manual Cphomwtxzz2044[address] [place] [address] C Urineon 04-20-2017 C Urine Final Report: Normal skin alonso isolated Normal [facility] Comment on above: Performed By: #### 2 253752 ####KADEN Urinalysis Manual Ysnuicyziz4816[address] [place] [address] BMPon 04-18-2017 BUN/Creatinine Ratio 15.0 ratio Normal 5.4-30.0 [facility] Comment on above: Performed By: #### 2 547217 ####KADEN MgnHeum4901 [place] [address] Creatinine 0.6 mg/dL Normal 0.6-1.3 [facility] Comment on above: Performed By: #### 2 478940 ####KADEN EemEbcb1582 [place] [address] Urea nitrogen 9 mg/dL Normal 7-18 [facility] Comment on above: Performed By: #### 2 319138 ####KADEN CtjIakp4892 [place] [address] Calcium 9.6 mg/dL Normal 8.4-10.2 [facility] Comment on above: Performed By: #### 2 702180 ####KADEN SphMjlg6447 [place] [address] Chloride 102 mmol/L Normal 98-107 [facility] Comment on above: Performed By: #### 2 879287 ####KADEN PpjJbbx6557 [place] [address] CO2 23.3 mmol/L Low 24.0-30.0 [facility] Comment on above: Performed By: #### 2 397995 ####KADEN RfzNlup1122 [place] [address] Glucose mass conc 93 mg/dL Normal 70-99 [facility] Comment on above: Performed By: #### 2 918667 ####KADEN OrfXkdh9627 [place] [address] Potassium molar conc 3.5 mmol/L Normal 3.5-5.1 [facility] Comment on above: Performed By: #### 2 773222 ####KADEN DyaMyts7238 [place] [address] Sodium 136 mmol/L Normal 136-145 [facility] Comment on above: Performed By: #### 2 597479 ####KADEN LayRaii3011 [place] [address] UA Completeon 04-18-2017 UA Blood Negative Normal Negative [facility] Comment on above: Performed By: #### 2 066610 ####KADEN Urinalysis Manual Goszoyyayp7608 [place] [address] UA Amorph Chastity 2+ /HPF Abnormal None [facility] Comment on above: Performed By: #### 2 790075 ####KADEN Urinalysis Manual Fgaflbruos3652 [place] [id number] UA Ascorbic Acid 40 mg/dL High <=19 [facility] Comment on above: Performed By: #### 2 983503 ####KADEN Urinalysis Manual Mbiumkfami4126 [place] [address] UA Clarity Cloudy Abnormal Clear [facility] Comment on above: Performed By: #### 2 028523 ####KADEN Urinalysis Manual Jpmedtupfl6975[address] [place] [address] UA Leuk Est Negative Normal Negative [facility] Comment on above: Performed By: #### 2 329427 ####KADEN Urinalysis Manual Xecrlpwljo0679[address] [place] [address] UA Mucous Trace Abnormal Trace [facility] Comment on above: Performed By: #### 2 402994 ####KADEN Urinalysis Manual Kqwibiqnuu6676[address] [place] [address] UA Nitrite Negative Normal Negative [facility] Comment on above: Performed By: #### 2 138191 ####KADEN Urinalysis Manual Nzctmrtoxc7168[address] [place] [address] UA pH 7.0 Normal 4.6-8.0 [facility] Comment on above: Performed By: #### 2 531060 ####KADEN Urinalysis Manual Ewieycyqaz7609[address] [place] [address] UA Protein Negative Normal Negative [facility] Comment on above: Performed By: #### 2 138841 ####KADEN Urinalysis Manual Qfvrhrzpmg8928[address] [place] [address] UA Spec Grav 1.018 Normal 1.003-1.030 [facility] Comment on above: Performed By: #### 2 424431 ####KADEN Urinalysis Manual Uckenlxqsw2467[address] [place] [address] UA Squam Epithelial 0-5 Normal 0-5 [facility] Comment on above: Performed By: #### 2 074837 ####KADEN Urinalysis Manual Bewyegtjab4889[address] [place] [address] UA Urobilinogen Negative Normal [facility] Comment on above: Performed By: #### 2 161272 ####KADEN Urinalysis Manual Dlshgayxtw784[address] [place] [address] Urine, color Yellow Normal Yellow [facility] Comment on above: Performed By: #### 2 725941 ####KADEN Urinalysis Manual Tisumeiany1787[address] [place] [address] Urine, glucose Negative Normal Negative [facility] Comment on above: Performed By: #### 2 073150 ####KADEN Urinalysis Manual Gkbfygruca9077[address] [place] [address] Urine, ketones presence 2+ Abnormal Negative [facility] Comment on above: Performed By: #### 2 176896 ####KADEN Urinalysis Manual Vwqtobzhcp[address] [place] [address] Urine, urobilinogen Negative Normal Negative [facility] Comment on above: Performed By: #### 2 598347 ####KADEN Urinalysis Manual Wrorkizhrp6833[address] [place] [address] eGFRon 04-18-2017 eGFR (non-black) mL/min/{1.73_m2} Normal [facility] Comment on above: Order Comment: Order added by Discern Expert. Performed By: #### 1 1137455 ####KADENMorelia BairdCpgBoul6283 [place] [address] eGFR AA >60 Normal [facility] Comment on above: Order Comment: Order added by Discern Expert. Performed By: #### 1 [id number] ####KADEN PgjJwob0673 [place] [address] Auto Diffon 04-11-2017 Basophils Auto #/vol (Bld) 0.1 E3/mcL Normal 0.0-0.2 [facility] Comment on above: Order Comment: Order Added by Discern Expert. Performed By: #### 2 317700 ####KADENMorelia BairdIuiDktp4971 [place] [address] Basophils/100 WBC Auto (Bld) 0.7 % Normal 0.0-2.0 [facility] Comment on above: Order Comment: Order Added by Discern Expert. Performed By: #### 2 795444 ####KADEN VqmYxrm7910 [place] [address] Eos Absolute 0.0 E3/mcL Normal 0.0-0.7 [facility] Comment on above: Order Comment: Order Added by Discern Expert. Performed By: #### 2 764459 ####KADENMorelia BairdVypAvmx6974 [place] [address] Eosinophils/100 leukocytes 0.1 % Normal 0.0-11.0 [facility] Comment on above: Order Comment: Order Added by Discern Expert. Performed By: #### 2 796732 ####KADEN Luceroo1025 [place] [address] Lymphocytes 1.5 E3/mcL Normal 1.2-3.4 [facility] Comment on above: Order Comment: Order Added by Discern Expert. Performed By: #### 2 312334 ####KADEN Luceroo1025 [place] [address] Lymphocytes/100 leukocytes 17.2 % Low 20.0-55.0 [facility] Comment on above: Order Comment: Order Added by Discern Expert. Performed By: #### 2 046517 ####KADEN BairdOabCjbo2584 [place] [address] Barbour Absolute 0.6 E3/mcL Normal 0.0-0.7 [facility] Comment on above: Order Comment: Order Added by Discern Expert. Performed By: #### 2 413600 ####KADEN Luceroo1025 [place] [address] Monocytes/100 leukocytes 6.6 % Normal 0.0-10.0 [facility] Comment on above: Order Comment: Order Added by Discern Expert. Performed By: #### 2 674342 ####KADEN BairdJdzAgdr7288 [place] [address] Neutro Absolute 6.7 E3/mcL High 1.4-6.5 [facility] Comment on above: Order Comment: Order Added by Discern Expert. Performed By: #### 2 704399 ####KADEN BairdAkoFnsl6756 [place] [address] Neutro Auto 75.4 % High 37.0-75.0 [facility] Comment on above: Order Comment: Order Added by Discern Expert. Performed By: #### 2 412126 ####KADEN BairdJvvFmkl8446 [place] [address] BMPon 04-11-2017 BUN/Creatinine Ratio 12.9 ratio Normal 5.4-30.0 [facility] Comment on above: Performed By: #### 2 445626 ####KADEN BairdRouPykz1551 [place] [address] Creatinine 0.7 mg/dL Normal 0.6-1.3 [facility] Comment on above: Performed By: #### 2 874115 ####KADEN XyoYkma2555 [place] [address] Urea nitrogen 9 mg/dL Normal 7-18 [facility] Comment on above: Performed By: #### 2 356553 ####KADEN KdhRmqd9026 [place] [address] Calcium 9.5 mg/dL Normal 8.4-10.2 [facility] Comment on above: Performed By: #### 2 076420 ####KADEN WapCmiu0307 [place] [address] Chloride 105 mmol/L Normal 98-107 [facility] Comment on above: Performed By: #### 2 500549 ####KADEN UkiPhab5270 [place] [address] CO2 22.5 mmol/L Low 24.0-30.0 [facility] Comment on above: Performed By: #### 2 114288 ####KADEN TpwHymw2213 [place] [address] Glucose mass conc 92 mg/dL Normal 70-99 [facility] Comment on above: Performed By: #### 2 301663 ####KADEN OltXlpn3535 [place] [address] Potassium molar conc 3.6 mmol/L Normal 3.5-5.1 [facility] Comment on above: Performed By: #### 2 532079 ####KADEN HlhWokn1521 [place] [address] Sodium 137 mmol/L Normal 136-145 [facility] Comment on above: Performed By: #### 2 029877 ####KADEN NcwBtfj2074 [place] [address] BhCG Quanton 04-11-2017 Beta hCG Qnt 8564.0 mIU/m Normal [facility] Comment on above: Result Comment: FEMA LE (NON-) & MALE <3 BORDERLINE 3 - 5 SUGGEST REPEAT TESTING FEMALE () 1 D - 1 WK 5 - 50 1 - 2 WK 50 - 500 2 - 3 WK 100 - 5000 3 - 4 WK 500 - 27563 4 - 5 WK 1000 - 47696 5 - 6 WK 42996 - 762201 6 - 8 WK 27860 - 798970 2 - 3 [place] [address] - 262619 Performed By: #### 2 529469 ####KADEN VcpQsso5046 [place] [address] CBC w/ Auto Diffon Erythrocyte distribution width Auto Ratio (RBC) 13.9 % Normal 11.5-14.5 [facility] Comment on above: Performed By: #### 2 243348 ####KADEN RzhCcjp1870 [place] [address] Erythrocytes (RBC) 4.63 E6/mcL Normal 3.90-5.40 [facility] Comment on above: Performed By: #### 2 008967 ####KADEN LnoJodp9373 [place] [address] Hematocrit (HCT) 38.2 % Normal 36.0-48.0 [facility] Comment on above: Performed By: #### 2 371088 ####KADEN AxfAsta6818 [place] [address] Hemoglobin mass conc (Bld) 12.6 g/dL Normal 12.0-16.0 [facility] Comment on above: Performed By: #### 2 003671 ####KADEN LxdLqiw6336 [place] [address] MCH 27.2 pg Normal 27.0-31.0 [facility] Comment on above: Performed By: #### 2 566697 ####KADEN BairdOmuRnye0716 [place] [address] MCHC mass conc (RBC) 33.0 g/dL Normal 33.0-37.0 [facility] Comment on above: Performed By: #### 2 959142 ####KADEN BairdUkcGbnm8267 [place] [address] MCV 82.6 fL Normal 78.0-100.0 [facility] Comment on above: Performed By: #### 2 489554 ####KADEN AptEyqt0338 [place] [address] Platelet mean volume (PMV) 8.0 fL Normal 7.4-11.0 [facility] Comment on above: Performed By: #### 2 057877 ####KADEN BairdCovOmdt2916 [place] [address] Platelets 233 E3/mcL Normal 130-400 [facility] Comment on above: Performed By: #### 2 019884 ####KADEN Luceroo1025 [place] [address] WBC (Leukocytes) 9.0 E3/mcL Normal 3.6-11.0 [facility] Comment on above: Performed By: #### 2 621419 ####KADEN KwwJwtr4409 [place] [address] UA Completeon 04-11-2017 UA Blood Negative Normal Negative [facility] Comment on above: Result Comment: High concentration of Ascorbic Acid present in urine. This may cause False Negative Occ Blood. Review microscopic results and patient's clinical symptoms. Performed By: #### 8 1411224 ####KADEN Urinalysis Automated Dauqhjjdpq7115 [place] [address] UA Amorph Chastity 1+ /HPF Abnormal None [facility] Comment on above: Performed By: #### 8 [id number] ####KADEN Urinalysis Automated Aewzeokhls[address] [place] [address] UA Ascorbic Acid 40 mg/dL High <=19 [facility] Comment on above: Performed By: #### 8 4481219 ####KADEN Urinalysis Automated Olyjegefkz6368 [place] [address] UA Bacteria Trace Abnormal None [facility] Comment on above: Performed By: #### 8 5606190 ####KADEN Urinalysis Automated Istngirtwz4193 [place] [address] UA Clarity Cloudy Abnormal Clear [facility] Comment on above: Performed By: #### 8 4995042 ####KADEN Urinalysis Automated Tizwyekbow9504 [place] [id number] UA Leuk Est Negative Normal Negative [facility] Comment on above: Performed By: #### 8 9826493 ####KADEN Urinalysis Automated Hjskmnecze4596 [place] [address] UA Mucous Few Abnormal Trace [facility] Comment on above: Performed By: #### 8 2364482 ####KADEN Urinalysis Automated Uprxkupebr6704 [place] [address] UA Nitrite Negative Normal Negative [facility] Comment on above: Performed By: #### 8 4304261 ####KADEN Urinalysis Automated Ezahxmedqm3167 [place] [address] UA pH 7.0 Normal 4.6-8.0 [facility] Comment on above: Performed By: #### 8 3587316 ####KADEN Urinalysis Automated Ixrquuxnvd5456 [place] [address] UA Protein Negative Normal Negative [facility] Comment on above: Performed By: #### 8 0334558 ####KADEN Urinalysis Automated Reulezbrnu[address] [place] [address] UA Spec Grav 1.025 Normal 1.003-1.030 [facility] Comment on above: Performed By: #### 8 [id number] ####KADEN Urinalysis Automated Whpiybfyvo[address] [place] [address] UA Squam Epithelial 5-10 Abnormal 0-5 [facility] Comment on above: Performed By: #### 8 6622747 ####KADEN Urinalysis Automated Rbakjjthxg6[address] [place] [address] UA Urobilinogen 2.0 mg/dL Abnormal [facility] Comment on above: Performed By: #### 8 9760446 ####KADEN Urinalysis Automated Dlhcwpxfcx6845 [place] [address] Urine, color Yellow Normal Yellow [facility] Comment on above: Performed By: #### 8 1223225 ####KADEN Urinalysis Automated Rkucxcqxsd2378 [place] [address] Urine, erythrocytes 0-3 Normal 0-3 [facility] Comment on above: Performed By: #### 8 3064750 ####KADEN Urinalysis Automated Aaegahrbzh7[address] [place] [address] Urine, glucose Negative Normal Negative [facility] Comment on above: Performed By: #### 8 6784427 ####KADEN Urinalysis Automated Gltafzmnzd8146[address] [place] [address] Urine, ketones presence 2+ Abnormal Negative [facility] Comment on above: Performed By: #### 8 6936761 ####KADEN Urinalysis Automated Uqvmxyltya9034 [place] [address] Urine, urobilinogen Negative Normal Negative [facility] Comment on above: Performed By: #### 8 6524547 ####KADEN Urinalysis Automated Dkmteflyre2849 [place] [address] eGFRon 04-11-2017 eGFR (non-black) mL/min/{1.73_m2} Normal [facility] Comment on above: Order Comment: Order added by Discern Expert. Performed By: #### 1 [id number] ####KADEN FtwNtan1880 [place] [address] eGFR AA >60 Normal [facility] Comment on above: Order Comment: Order added by Discern Expert. Performed By: #### 1 [id number] ####KADEN WknXwkw6830 [place] [address] U BhCG Qlton 03-20-2017 HCG.beta subunit Qn Negative Normal Neg [facility] Comment on above: Performed By: #### 2 868426 ####KADEN Urinalysis Manual Wifuxdcdke47[address] [place] [address] UA Completeon 03-20-2017 UA Blood Negative Normal Negative [facility] Comment on above: Performed By: #### 8 [id number] ####KADEN Urinalysis Automated Linqqgzcef5691 [place] [address] UA Amorph Chastity 1+ /HPF Abnormal None [facility] Comment on above: Performed By: #### 8 0569966 ####KADEN Urinalysis Automated Owyveazkqa6701 [place] [address] UA Bacteria 2+ /HPF Abnormal None [facility] Comment on above: Performed By: #### 8 [id number] ####KADEN Urinalysis Automated Rzpcyddllg0071 [place] [address] UA Clarity Cloudy Abnormal Clear [facility] Comment on above: Performed By: #### 8 4732455 ####KADEN Urinalysis Automated Xetmrzxrlw7746 [place] [address] UA Leuk Est 1+ Abnormal Negative [facility] Comment on above: Performed By: #### 8 7555745 ####KADEN Urinalysis Automated Qujuujljrm7297 [place] [address] UA Mucous Occasional Abnormal Trace [facility] Comment on above: Performed By: #### 8 [id number] ####KADEN Urinalysis Automated Rdqghlynor5989 [place] [address] UA Nitrite Negative Normal Negative [facility] Comment on above: Performed By: #### 8 8431457 ####KADEN Urinalysis Automated Vfngetxkml2634 [place] [address] UA pH 6.0 Normal 4.6-8.0 [facility] Comment on above: Performed By: #### 8 [id number] ####KADEN Urinalysis Automated Ioxlpqvzbk[address] [place] [address] UA Protein 1+ Abnormal Negative [facility] Comment on above: Performed By: #### 8 7813778 ####KADEN Urinalysis Automated Lkalmllnvd6867[address] [place] [address] UA Spec Grav 1.019 Normal 1.003-1.030 [facility] Comment on above: Performed By: #### 8 [id number] ####KADEN Urinalysis Automated Erphzhbfus460445 [place] [address] UA Squam Epithelial 5-10 Abnormal 0-5 [facility] Comment on above: Performed By: #### [id number] ####KADEN Urinalysis Automated [id number] [place] [address] UA Urobilinogen Negative Normal [facility] Comment on above: Performed By: #### [id number] ####KADEN Urinalysis Automated [id number] [place] [address] UA WBC >50 Abnormal 0-5 [facility] Comment on above: Performed By: #### [id number] ####KADEN Urinalysis Automated [id number] [place] [address] Urine, color Yellow Normal Yellow [facility] Comment on above: Performed By: #### [id number] ####KADEN Urinalysis Automated [id number] [place] [address] Urine, erythrocytes 5-10 Abnormal 0-3 [facility] Comment on above: Performed By: #### [id number] ####KADEN Urinalysis Automated [id number] [place] [address] Urine, glucose Negative Normal Negative [facility] Comment on above: Performed By: #### [id number] ####KADEN Urinalysis Automated [id number] [place] [address] Urine, ketones presence Negative Normal Negative [facility] Comment on above: Performed By: #### [id number] ####KADEN Urinalysis Automated [id number] [place] [address] Urine, urobilinogen Negative Normal Negative [facility] Comment on above: Performed By: #### [id number] ####KADEN Urinalysis Automated [id number] [place] [address] Vital Signs Date Time Vital Sign Value Performing Clinician Facility 02-11-2023 14:13-0400 Body height 165.1 cm SADAF Wyatt Work Phone: [facility] 02-11-2023 14:13-0400 Body temperature 97.9 [degF] SADAF Wyatt Work Phone: [facility] 02-11-2023 14:13-0400 Body weight 70.55 kg SADAF Wyatt Work Phone: [facility] 02-11-2023 14:13-0400 Diastolic blood pressure 80 mm[Hg] SADAF Wyatt Work Phone: [facility] 02-11-2023 14:13-0400 Heart rate 60 /min SADAF Wyatt Work Phone: [facility] 02-11-2023 14:13-0400 Respiratory rate 15 /min SADAF Wyatt Work Phone: [facility] 02-11-2023 14:13-0400 SaO2% (BldA) [Mass fraction] 99 % SADAF Wyatt Work Phone: [facility] 02-11-2023 14:13-0400 Systolic blood pressure 134 mm[Hg] FERMIN-Ventura Wyatt Work Phone: [facility] 02-08-2023 12:36-0400 Body height 165.1 cm SADAF Wyatt Work Phone: [facility] 02-08-2023 12:36-0400 Body temperature 98.2 [degF] FERMIN-Ventura Wyatt Work Phone: [facility] 02-08-2023 12:36-0400 Body weight 72.57 kg FERMIN-Ventura Wyatt Work Phone: [facility] 02-08-2023 12:36-0400 Diastolic blood pressure 84 mm[Hg] SADAF Wyatt Work Phone: [facility] 02-08-2023 12:36-0400 Heart rate 74 /min SADAF Wyatt Work Phone: [facility] 02-08-2023 12:36-0400 Respiratory rate 15 /min SADAF Wyatt Work Phone: [facility] 02-08-2023 12:36-0400 SaO2% (BldA) [Mass fraction] 98 % SADAF Wyatt Work Phone: [facility] 02-08-2023 12:36-0400 Systolic blood pressure 150 mm[Hg] SADAF Wyatt Work Phone: [facility] 12-19-2022 14:43-0400 Body temperature 96.9 [degF] SADAF Wyatt Work Phone: [facility] 12-19-2022 14:43-0400 Diastolic blood pressure 74 mm[Hg] SADAF Wyatt Work Phone: [facility] 12-19-2022 14:43-0400 Heart rate 59 /min SADAF Wyatt Work Phone: [facility] 12-19-2022 14:43-0400 Respiratory rate 18 /min PA-C Andie Wyatt Work Phone: [facility] 12-19-2022 14:43-0400 SaO2% (BldA) [Mass fraction] 100 % PA-C Andie Wyatt Work Phone: [facility] 12-19-2022 14:43-0400 Systolic blood pressure 115 mm[Hg] PA-C Andie Wyatt Work Phone: [facility] 12-19-2022 14:00-0400 Diastolic blood pressure 89 mm[Hg] PA-C Andie Wyatt Work Phone: [facility] 12-19-2022 14:00-0400 Heart rate 79 /min PA-C Andie Wyatt Work Phone: [facility] 12-19-2022 14:00-0400 Respiratory rate 16 /min PA-C Andie Wyatt Work Phone: [facility] 12-19-2022 14:00-0400 SaO2% (BldA) [Mass fraction] 99 % PA-C Andie Wyatt Work Phone: [facility] 12-19-2022 14:00-0400 Systolic blood pressure 150 mm[Hg] PA-C Andie Wyatt Work Phone: [facility] 12-19-2022 03:30-0400 Body height 165.1 cm PA-C Andie Wyatt Work Phone: [facility] 12-19-2022 03:30-0400 Body weight 72.2 kg PA-Ventura Wyatt Work Phone: [facility] 12-18-2022 23:07-0400 Body height 165.1 cm PA-C Andie Wyatt Work Phone: [facility] 12-18-2022 23:07-0400 Body weight 74.2 kg PA-C Andie Wyatt Work Phone: [facility] 12-18-2022 23:05-0400 Body temperature 98.5 [degF] PA-C Andie Wyatt Work Phone: [facility] 08-20-2022 14:31-0500 Body height 165.1 cm PA-Ventura Wyatt Work Phone: [facility] 08-20-2022 14:31-0500 Body temperature 98.9 [degF] SADAF Wyatt Work Phone: [facility] 08-20-2022 14:31-0500 Body weight 71.55 kg PA-Ventura Wyatt Work Phone: [facility] 08-20-2022 14:31-0500 Diastolic blood pressure 87 mm[Hg] PA-Ventura Wyatt Work Phone: [facility] 08-20-2022 14:31-0500 Heart rate 97 /min SADAF Wyatt Work Phone: [facility] 08-20-2022 14:31-0500 Respiratory rate 18 /min PA-Ventura Wyatt Work Phone: [facility] 08-20-2022 14:31-0500 SaO2% (BldA) [Mass fraction] 98 % PA-Ventura Wyatt Work Phone: [facility] 08-20-2022 14:31-0500 Systolic blood pressure 135 mm[Hg] SADAF Wyatt Work Phone: [facility] 02-08-2022 03:06-0400 Body weight 68.[address] CUONG ORTIZ . [facility] Comment on above: Performed By: #### AFPMAT #### [facility] [address] [place] [address] Dr. Juan Antonio Ibarra 02-05-2022 18:24-0400 Body height 165.1 cm PAZhao Wyatt Work Phone: [facility] 02-05-2022 18:24-0400 Body temperature 98.3 [degF] SADAF Wyatt Work Phone: [facility] 02-05-2022 18:24-0400 Body weight 67.9 kg SADAF Wyatt Work Phone: [facility] 02-05-2022 18:24-0400 Diastolic blood pressure 68 mm[Hg] SADAF Wyatt Work Phone: [facility] 02-05-2022 18:24-0400 Heart rate 92 /min SADAF Wyatt Work Phone: [facility] 02-05-2022 18:24-0400 Respiratory rate 18 /min SADAF Wyatt Work Phone: [facility] 02-05-2022 18:24-0400 SaO2% (BldA) [Mass fraction] 99 % SADAF Wyatt Work Phone: [facility] 02-05-2022 18:24-0400 Systolic blood pressure 125 mm[Hg] SADAF Wyatt Work Phone: [facility] Encounters Encounter Date Encounter Type Care Provider Facility Start: 07-03-2023 End: 07-03-2023 ambulatory CUONG Chadwick POLO [facility] Start: 07-03-2023 End: 07-03-2023 Telemedicine consultation with patient Rosaura Renee [facility] Work Phone: [facility]- Medicine at [facility] Comment on above: Family history of ge netic disorder (Primary Dx); Genetic testing; Fetus with trisomy 13, single gestation Start: 06-20-2023 End: 06-20-2023 ambulatory BARB KRAMER Not Available Start: 05-23-2023 End: 05-23-2023 ambulatory CUONG ORTIZ Not Available Start: 04-16-2023 ambulatory Cesar Clayton acility:[facility] Start: 02-11-2023 End: 02-11-2023 Emergency department patient visit Andie Wyatt Facility:[facility] Start: 02-11-2023 End: 02-11-2023 Emergency department patient visit SADAF Wyatt Work Phone: [place] Work Phone: Start: 02-08-2023 End: 02-08-2023 Emergency department patient visit Andie Wyatt Facility:[facility] Start: 02-08-2023 End: 02-08-2023 Emergency department patient visit SADAF Wyatt Work Phone: [facility] Work Phone: Start: 12-19-2022 End: 12-19-2022 ambulatory Igor Ventura Facility:[facility] Start: 12-19-2022 End: 12-19-2022 Evaluation and management of inpatient FERMIN-Ventura Wyatt Work Phone: [facility] Work Phone: Start: 12-19-2022 End: 12-19-2022 observation encounter FERMIN-Ventura Wyatt Work Phone: [place] Work Phone: Start: 10-24-2022 End: 10-24-[address] CUONG ORTIZ . Facility:[facility] Start: 10-23-2022 Registered Recurring SADAF Wyatt Work Phone: [place] Start: 08-20-2022 End: 08-20-2022 Emergency department patient visit Andie John Wyatt Facility:[facility] Start: 08-20-2022 End: 08-20-2022 Emergency department patient visit FERMINArpitaVentura Wyatt Work Phone: [facility] Work Phone: Start: 07-23-[address] CUONG ORTIZ . Facili ty:[facility] Start: 07-09-2022 End: 07-09-[address] CUONG ORTIZ . Facility:[facility] Start: 07-05-2022 End: 07-07-2022 Evaluation and management of inpatient DR CUONG ORTIZ . Facility:[facility] Start: 07-02-2022 End: 07-02-2022 ambulatory [facility] Facility:[facility] Start: 06-28-2022 End: 06-28-[address] CUONG ORTIZ . Facility:[facility] Start: 06-21-2022 End: 06-21-2022 [facility] Facility:[facility] Start: 06-16-2022 End: 06-16-[address] CUONG ORTIZ . Facility:[facility] Start: 06-14-2022 End: 06-14-2022 ambulatory ABRB WILLIAMS . Facility:[facility] Start: 06-14-2022 End: 06-14-[address] CUONG ORTIZ . Facility:[facility] Start: 06-07-2022 End: 06-07-[address] CUONG ORTIZ . Facility:[facility] Start: 06-04-2022 End: 06-04-[address] CUONG ROTIZ . Facility:[facility] Start: 06-02-2022 End: 06-02-[address] CUONG ORTIZ . Facility:[facility] Start: 05-31-2022 End: 05-31-[address] CUONG ORTIZ . Facility:[facility] Start: 05-24-2022 End: 05-24-2022 [facility] Facility:[facility] Start: 04-04-2022 End: 04-05-[address] CUONG ORTIZ . Facility:[facility] Start: 03-20-2022 End: 03-21-[address] CUONG ORTIZ . Facility:[facility] Start: 02-22-2022 End: 02-23-[address] CUONG ORTIZ . Facility:[facility] Start: 02-06-2022 End: 02-06-[address] CUONG ORTIZ . Facility:[facility] Start: 02-06-2022 End: 02-07-[address] CUONG ORTIZ . Facility:[facility] Start: 02-05-2022 End: 02-05-2022 Emergency department patient visit SADAF Wyatt Work Phone: [place] Start: 12-26-2021 End: 12-27-[address] CUONG ORTIZ . Facility:[facility] Start: 12-07-2021 End: 12-08-[address] CUONG ORTIZ . Facility:[facility] Start: 12-27-2017 End: 12-27-2017 Patient encounter Christian Ivan Facility:[facility] Start: 12-12-2017 End: 12-12-2017 Emergency department patient visit Luke Barbosa Facility:[facility] Start: 12-12-2017 Patient encounter Facil [id number] Start: 12-07-2017 Evaluation and management of inpatient CLARA JAMA Facility:[facility] Start: 12-03-2017 Evaluation and management of inpatient CLARA JAMA Facility:[facility] Start: 12-03-2017 Patient encounter procedure CLARA JAMA Facility:[facility] Start: 12-02-2017 Evaluation and management of inpatient CLARA JAMA Facility:[facility] Start: 11-30-2017 End: 12-02-2017 Evaluation and management of inpatient CLARA JAMA [facility] Start: 11-30-2017 End: 11-30-2017 Patient encounter Salomon Blantonman Facility:[facility] Start: 11-30-2017 Patient encounter Facil [id number] Start: 11-28-2017 End: 11-28-2017 Patient encounter CLARA JAMA [facility] Start: 11-21-2017 End: 11-21-2017 [facility] Start: 11-21-2017 End: 11-21-2017 Patient encounter Juanita Cole Facility:[facility] Start: 11-20-2017 Patient encounter Facil [id number] Start: 11-17-2017 End: 11-17-2017 Patient encounter Christian Ivan Facility:[facility] Start: 11-16-2017 Patient encounter Facil [id number] Start: 11-07-2017 End: 11-07-2017 Patient encounter [facility] Start: 10-31-2017 End: 10-31-2017 Patient encounter CLARA JAMA [facility] Start: 10-24-2017 End: 10-24-2017 Patient encounter MARCO ANTONIO ANTONIO [facility] Start: 10-16-2017 End: 10-16-2017 Patient encounter Christian Ivan Facility:[facility] Start: 10-08-2017 End: 10-08-2017 Patient encounter LAIREZA PATEL [facility] Start: 10-08-2017 End: 10-08-2017 Patient encounter OKSANA MASON [facility] Start: 10-01-2017 End: 10-02-2017 Patient encounter Christian A Shekhar Facility:[facility] Start: 09-10-2017 End: 09-11-2017 Patient encounter LUIS DANIEL TRAMMELL [facility] Start: 09-10-2017 End: 09-10-2017 Patient encounter KRIS Yola HOYT [facility] Start: 09-10-2017 End: 09-10-2017 Patient encounter CLARA JAMA [facility] Start: 09-03-2017 End: 09-04-2017 Patient encounter Christian A Shekhar Facility:[facility] Start: 08-28-[address] [facility] Start: 08-13-2017 End: 08-14-2017 Patient encounter CLARA JAMA [facility] Start: 08-13-2017 End: 08-13-2017 Patient encounter MEREDITH BENITO [facility] Start: 08-13-2017 End: 08-13-2017 Patient encounter ALIREZA PATEL [facility] Start: 08-10-2017 End: 08-10-2017 Emergency department patient visit Luke Barbosa Facility:[facility] Start: 08-06-2017 End: 08-07-2017 Patient encounter Christian A [place] Facility:[facility] Start: 07-23-2017 End: 07-24-2017 Patient encounter Christian A [place] Facility:[facility] Start: 07-18-2017 End: 07-18-2017 Patient encounter CLARA JAMA [facility] Start: 07-09-2017 End: 07-10-2017 Patient encounter Christian A [place] Facility:[facility] Start: 06-25-2017 End: 06-26-2017 Patient encounter Christian A Shekhar Facility:[facility] Start: 06-12-2017 End: 06-12-2017 Patient encounter Christian A [place] Facility:[facility] Start: 05-14-2017 End: 05-15-2017 Patient encounter Christian A [place] Facility:[facility] Start: 05-01-2017 End: 05-02-2017 Patient encounter Salomon Nguyen Facility:[facility] Start: 04-23-2017 End: 04-23-2017 Patient encounter Yasmin Evans Facility:[facility] Start: 04-22-2017 End: 04-22-2017 Emergency department patient visit Luke Barbosa Facility:[facility] Start: 04-18-2017 End: 04-18-2017 Emergency department patient visit Luke Barbosa Facility:[facility] Start: 04-16-2017 End: 04-17-2017 Patient encounter Gamaliel Savage Facility:[facility] Start: 04-16-2017 End: 04-17-2017 Patient encounter Christian A Shekhar Facility:[facility] Start: 04-11-2017 End: 04-11-2017 Emergency department patient visit Nodr No Doctor Assigned Facility:[facility] Start: 03-26-2017 End: 03-27-2017 Patient encounter Luke Barbosa Facility:[facility] Start: 03-20-2017 End: 03-20-2017 Emergency department patient visit Nodr No Doctor Assigned Facility:[facility] Start: 03-01-2017 End: 03-01-2017 Emergency department patient visit Nodr No Doctor Assigned Facility:[facility] Procedures Date Procedure Procedure Detail Performing Clinician Start: 12-19-2022 Urine culture SADAF Wyatt Work Phone: Start: 12-19-2022 CT of head without contrast SADAF Wyatt Work Phone: Start: 12-19-2022 Antibody screen Andie Wyatt Comment on above: Result Comment: PERF ORMED BY: [facility] [address] [place] [address] PATHOLOGIST BUSINESS SUPERVISOR MALVIN MEDLEY M.D. Start: 12-19-2022 X-ray of left foot SADAF Wyatt Work Phone: Start: 12-18-2022 Computed tomography of thoracic spine without contrast SADAF Wyatt Work Phone: Start: 12-18-2022 CT cervical spine wi thout contrast SADAF Wyatt Work Phone: Start: 12-18-2022 CT of head without contrast SADAF Wyatt Work Phone: Start: 12-18-2022 CT of lumbar spine w ithout contrast SADAF Wyatt Work Phone: Start: 12-18-2022 Plain chest X-ray SADAF Wyatt Work Phone: Start: 12-18-2022 X-ray of both knees TARIQ Wyatt Work Phone: Start: 07-06-2022 Transfusion of Nonautologous Red Blood Cells into Peripheral Vein, Percutaneous Approach DR CUONG ORTIZ . Start: 07-05-2022 Delivery of Products of Conception, External Approach DR CUONG ORTIZ . Start: 07-05-2022 Introduction of Othe r Hormone into Peripheral Vein, Percutaneous Approach DR CUONG ORTIZ . Start: 05-02-2022 Adult depression scr eening assessment Rosaura Renee [facility] Work Phone: Start: 11-30-2017 Antibody screen SHAINA JAMA Comment on above: Performed By: #### T &S #### [place] [id number] Aerobic microbial culture FERMIN Wyatt Work Phone: Investigation of transfusion reaction SADAF Wyatt Work Phone: Plan of Treatment Date Care Activity Detail Author Start: 12-18-2032 DTaP,Tdap and Td Vaccines (10 - Td or Tdap) DTaP,Tdap and Td Vaccines (10 - Td or Tdap) [facility] Start: 09-11-2023 Adult BMI Screening Adult BMI Screen ing [facility] Start: 09-11-2023 Tobacco Screening Tobacco Screening [facility] Start: 07-18-2023 End: 07-18-2023 Patient encounter procedure 07/18/2023 8:00 AM EST Appointment [facility] [place] [address] [facility] [address] [place] [id number] [facility] [place] Start: 05-02-2023 Depression Screening Depression Scre ening [facility] Start: 09-01-2023 COVID-19 Vaccine ( season) COVID-19 Vaccine ( season) [facility] Start: 02-15-2023 Influenza vaccination Influenza Vacc ine [facility] Start: 12-19-2022 Bacteria identified in Urine by Culture Urine Culture [facility] Start: 12-19-2022 [facility] Start: 12-19-2022 CT of head without contrast CT head/brain wo [facility] Start: 12-19-2022 CT Unspecified body region WO contrast [facility] Start: 12-19-2022 Consultation [facility] Start: 12-19-2022 Hospital admission [facility] Start: 12-19-2022 X-ray of left foot XR foot LT 2V [facility] Start: 12-19-2022 XR Foot - left 2 Views [facility] Start: 12-18-2022 Computed tomography of thoracic spine without contrast CT thoracic spine wo [facility] Start: 12-18-2022 CT cervical spine without contrast CT cervical spine wo [facility] Start: 12-18-2022 CT Cervical spine WO contrast [facility] Start: 12-18-2022 CT Lumbar spine WO contrast [facility] Start: 12-18-2022 CT of head without contrast CT head/brain wo [facility] Start: 12-18-2022 CT of lumbar spine without contrast CT lumbar spine wo [facility] Start: 12-18-2022 CT Thoracic spine WO contrast [facility] Start: 12-18-2022 CT Unspecified body region WO contrast [facility] Start: 12-18-2022 Pelvis X-ray XR pelvis 1-2V [facility] Start: 12-18-2022 Plain chest X-ray XR chest 1V portab le [facility] Start: 12-18-2022 X-ray of both knees XR knee BI 2V [facility] Start: 12-18-2022 XR Chest Single view [facility] Start: 12-18-2022 XR Knee - bilateral 2 Views [facility] Start: 12-18-2022 XR Pelvis 1 or 2 Views [facility] Start: 02-05-2022 [facility] Work Phone: Start: 2013 Screening for malign ant neoplasm of cervix Pap Smear [facility] Start: 2010 Adult BMI Follow Up Plan Adult BMI Follow Up Plan [facility] Anaerobic microbial culture Anaerobic Culture [facility] Bacteria identified in Urine by Culture [facility] Patient Education [facility] Work Phone: Patient referral [facility] Work Phone: Immunizations Immunization Date Immunization Notes Care Provider Fa hector 12-18-2022 tetanus toxoid, redu swati diphtheria toxoid, and acellular pertussis vaccine, adsorbed SADAF Wyatt Work Phone: [facility] 05-19-2013 influenza virus vaccine, unspecified formulation Rosaura Renee [facility] Work Phone: [facility] Payers Date Payer Category Payer Self-pay 2017 Medicaid 2017 Unknown 1992 Unknown [id number] 2.840.1.115058.3.579.2.278 1992 Unknown [id number] 2.840.1.452702.3.579.2.278 1992 Unknown [id number] 2.840.1.764099.3.579.2.278 1992 Unknown [id number] 2.16840.1.438701.3.579.2.278 1992 Unknown [id number] 2.16.840.1.510981.3.579.2.593 1992 Unknown [id number] 2.16.840.1.865133.3.579.2.593 1992 Unknown [id number] 2.16.840.1.590313.3.579.2.593 1992 Unknown [id number] 2.16840.1.639780.3.579.2.593 1992 Unknown [id number] 2.16.840.1.724760.3.579.2.593 1992 Unknown [id number] 2.16.840.1.972002.3.579.2.593 1992 Unknown [id number] 2.16.840.1.009803.3.579.2.593 1992 Unknown [id number] 2.16.840.1.475214.3.579.2.593 1992 Unknown [id number] 2.16.840.1.272824.3.579.2.593 1992 Unknown [id number] 2.16.840.1.270339.3.579.2.593 1992 Unknown [id number] 2.16.840.1.452788.3.579.2.59 1992 Unknown [id number] 2.16.840.1.633561.3.579.2.593 1992 Unknown [id number] 2.16.840.1.746172.3.579.2.593 1992 Unknown [id number] 2.16.840.1.335571.3.579.2.593 1992 Unknown [id number] 2.16.840.1.412633.3.579.2.593 1992 Unknown [id number] 2.16.840.1.107811.3.579.2.59 1992 Unknown [id number] 2.16.840.1.309361.3.579.2.593 1992 Unknown [id number] 2.16.840.1.614505.3.579.2.593 1992 Unknown [id number] 2.16.840.1.037482.3.579.2.593 1992 Unknown [id number] 2.16.840.1.564326.3.579.2.593 1992 Unknown [id number] 2.16.840.1.057824.3.579.2.593 1992 Unknown [id number] 2.16.840.1.558975.3.579.2.593 1992 Unknown [id number] 2.16.840.1.469262.3.579.2.9 1992 Unknown [id number] 2.16.840.1.168795.3.579.2.1259 1992 Unknown [id number] 2.16.840.1.721460.3.579.2.1286 1959 Medicaid [id number] 1957 Medicaid [id number] Medicaid [id number] Unknown Regular Auto/Liability [id number] Unknown [id number] 2.840.1.638154.3.579.2.531 Unknown [id number] 2.840.1.827647.3.579.2.531 Unknown [id number] 20.1.979447.3.579.2.531 Unknown [id number] .0.1.530010.3.579.2.531 Unknown [id number] .0.1.629305.3.579.2.531 Social History Date Type Detail Facility Start: 02-05-2022 End: 02-08-2023 Tobacco smoking status VTIS Never smoked tobacco (finding) [facility] Start: 1990 Sex Assigned At Female F [facility] Start: 12-19-2022 End: 12-19-2022 Tobacco smoking status VTIS Current some day smoker [facility] Start: 03-28-2022 End: 02-11-2023 Tobacco smoking status NHIS Ex-smoker (finding) [facility] History of tobacco use Current smoker [facility] History of tobacco use Tobacco U se Types Packs/Day Years Used Date Smoking Tobacco: Former Vaping/E-cigarettes Smokeless Tobacco: Never [facility] Start: 03-28-2022 Tobacco use and exposure Smoke less tobacco non-user [facility] Start: 06-26-2023 Alcohol intake Current 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-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 (finding) [facility] Start: 03-18-2018 End: 07-28-2020 History of Social function [facility] Start: 03-18-2018 End: 07-28-2020 Alcohol Use Disorder Identification Test - Consumption [AUDIT-C] [facility] Frequency of Alcohol Consumption Never [facility] Start: 03-11-2023 [facility] Start: 1990 Sex Assigned At Not on file P [facility] Goals Date Patient Goal Desired Activity /State Functional Status Date Assessment Result Facility 12-19-2022 Functional status Patient at Baseline [facility] Work Phone: Mental Status Date Assessment Result Facility 12-19-2022 Cognitive function Cognitive Sta tus Patient at Baseline [facility] Work Phone: Clinical Notes 11-13-2021 to 07-03-2023 JOCELYN Wilson - 07/03/2023 11:00 AM EST Note Date & Type Note Facility 07-03-2023 History of Present illness Narrative Summary: [facility] Genetic Counseling Note Provider at different site/location than patient. I confirmed the patient is located in the [facility]. Zuleika Wyatt is currently at home and provider at remote site. The patient consented to be treated electronically via this form of telemedicine. This visit was not related to an office visit or procedure in the past 7 days, and in-office follow up is not recommended in the next 24 hours. Video Visit via Real-time Synchronous Audiovisual Provider Location: [facility] [address] [address] Patient Location: Patient's home Patient Location Authorization Rep: None Video Visit Consent Statement: I discussed risks, benefits, and alternatives of a real-time synchronous audiovisual consultation with the patient (and any accompanying persons) including the risks that the patient's personal health details and medical records will be discussed over real-time, synchronous, interactive video/audio/telecommunication technology, the visit will not be recorded without the express consent of both the provider and the patient, and that there are some limitations compared to [id number] evaluations. We elected to proceed. Name: Zuleika Wyatt : 1990 Date of Visit: 07/03/2023 Email: [email or web address] Preferred contact method: any Partner's Name: Jag Age: 43 Requesting Physician: Cuong Ortiz DO [address] , [place] [address] Reason for Referral: Zuleika Wyatt is a 33 y.o. female who presented to [facility] Telemedicine Clinic. Zuleika is here at the request of Cuong Ortiz DO due to a previous child with Trisomy-13 and a family history of FLNA Deficiency. Obstetric and history: Estimated Date of Delivery: 12/02/23 based on 04/26/2023 ultrasound at 8w4d gestation to confirm HUGO. Gestational age: 18w2d OB History Para Term AB Living 6 2 3 2 2 SAB IAB Ectopic Multiple Live Births 2 # Outcome Date GA Lbr Nam/2nd Weight Sex Delivery Anes PTL Lv 6 Current 5 SAB 8w0d M 4 Term 40w0d F Vag-Spont EPI Yes 3 SAB 2 Term F Yes 1 Term M No Current history is significant for: None Past /delivery complications: G1 with Trisomy 13 within first few hours of life Medical History: Past Medical History: Diagnosis Date ADHD Anxiety Bipolar disorder (CMS-HCC) Club foot Depression alcohol syndrome PTSD (post-traumatic stress disorder) Ms. Wyatt additionally reports a personal history of multiple personality disorder, intellectual disability, scoliosis, congenital heart defect (PDA) requiring surgery, asthma, joint hypermobility (double jointed), gastrointestinal issues, and heaving bleeding during menstruation. She denied a personal history of diabetes, hypertension, hypothyroidism, infertility and other chronic medical conditions. Medications: No current outpatient medications or facility-administered medications were updated during this visit. Please review referring office's note for the most up to date patient medication list. Exposures/Complications: Alcohol: NO Drugs: NO Cigarettes: NO X-Rays/CT/radiation: NO Illnesses: NO Infections: NO Rashes: NO Spotting/bleeding: NO Other exposures: NO Testing already completed during current : First Trimester Screen: NO Maternal Serum Screen: NO Non Invasive Screen: YES - low risk Performing lab: [employer] screen Conditions screened: Trisomy 13, Trisomy 18, Trisomy 21, sex chromosome aneuploidies sex predicted: female fraction: 6.9% Drawn on: 05/30/2023 Carrier Screening: NO CVS: NO Amniocentesis: NO TORCH Screening: YES RUBELLA ANTIBODIES, IG.63 - immune HIV AB/P24 AG SCREEN: non-reactive HCV AB: non-reactive HBSAG SCREEN: negative Other screening/testing: YES GLYCOHEMOGLOBIN A1C: 5.4% Ultrasounds: Ultrasound on 04/26/2023 at 8w4d gestation showed: 1) Single live intrauterine 8 weeks 4 days by today's ultrasound. Family History / Pedigree: A three-generation family history was obtained for the patient and the father of the baby, Jag. History was provided by the patient report unless otherwise noted. Of significance, this is Ximena's third together. They have an 11 month old daughter with FLNA Deficiency. 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 Since , Zuleika has noticed joint hypermobility in her daughter. They also had a miscarriage around 10 weeks gestation of unknown etiology. Zuleika additionally has a 5 year old daughter with FLNA Deficiency with a different partner. PNH was identified postnatally, and she additionally has motor and speech delays, joint hypermobility (double jointed), and had eye surgery for a lazy eye. Zuleika also had a son that only lived a couple hours after due to Trisomy-13 and a chemical with a different partner. Zuleika reports a full brother with an intellectual disability and another full brother born with a congenital heart defect that experienced failure to thrive soon after and around 4 months old due to SIDS. Zuleika's father has an intellectual disability and her mother experienced heavy bleeding during menstruation. Zuleika reports a paternal half brother with intellectual disability/social deficits, and a paternal half sister that had 5 1st trimester miscarriages of unknown etiology and experiences heavy bleeding during menstruation. She has a paternal half nephew that is developmentally delayed and a paternal half niece with GI issues. Zuleika also reports a maternal half nephew born with hypospadias. Other maternal family history was noncontributory to the genetics evaluation. Jag is a 43 year old male that had seizures at less than a year old due to delivery complications (possibly shoulder dystocia). Zuleika reports that his father from noncompliance of T1DM management and his mother has atrial fibrillation. Other paternal family history was noncontributory to the genetics evaluation. Maternal ancestry: Paternal ancestry: Consanguinity: denied The history was otherwise unremarkable for FLNA deficiency symptoms, developmental delays or intellectual disability, other defects, neural tube defects, multiple miscarriages, stillborns or deaths, and other known genetic conditions. Pedigree to be scanned and viewable under the media tab. Information Discussed: Genetic Assessment: We discussed that whenever a woman is there is a 3-5% chance of having a child with some type of defect and/or developmental delay. Maternal age, maternal health history and family history can increase this risk. Certain ultrasound markers or anomalies can also increase the risk of an underlying chromosome anomaly or genetic syndrome. Based on her maternal age, Ms. Wyatt, the patient's midtrimester risk for Down syndrome is 1 in 630, Trisomy 18 is 1 in 2460, and any chromosomal abnormality at term is 1 in 384 (from Perinatology calculator). There are different modalities to screen and diagnose these problems antenatally. Some parents may choose to know this information to make a decision regarding termination of , prepare themselves for a baby with special needs, or they may opt not to have this information available antenatally. We reviewed Zuleika's non-invasive screening results in detail. This is a screening test that uses cell-free DNA (cfDNA, maternal and placental DNA in circulation) to screen for aneuploidies, and can be done at 10+ weeks gestation. This testing screens for common autosomal aneuploidies (Trisomy-21, Trisomy-18, Trisomy-13) and sex chromosome aneuploidies (Monosomy X (M-X), XXX, XXY, XYY). The fraction is calculated based on the cfDNA present in the sample, and sufficient placental DNA is needed to analyze the sample. This testing is nondiagnostic and should be interpreted with caution, as false positive results are possible. Zuleika's results indicate the is low risk to be affected with any of the chromosome conditions screened for. We discussed the previous with Trisomy-13 (T-13) in detail. Zuleika reports that her baby boy lived for a couple hours and then . She reports that genetic testing was done, and it was determined that the extra chromosome 13 was paternally inherited. I was unable to confirm this, as the test report was unavailable. We reviewed the etiology of T-13 in detail. T-13 is caused by an extra copy of chromosome 13 and occurs in about 1 in 10,000-20,000 live births. ~80% have a full extra chromosome 13 in all their cells, ~5% have mosaic T-13 (some of their cells have 3 copies of chromosome 13, and some have 2 copies), and rarely, some have partial trisomy 13 resulting from a parental 13;14 robertsonian translocation. A balanced translocation occurs when part of a chromosome breaks off and attaches to another chromosome. These individuals do not have any symptoms because they still have the right amount of chromosomal material, however, it is rearranged. Balanced translocation carriers are at increased risk for miscarriage and for having offspring with unbalanced chromosomes, such as T-13. In most cases (for babies with full or mosaic T-13), T-13 occurs sporadically by chance. If this is the case, recurrence risk to future pregnancies is typically ~1%. Risks for future pregnancies to be affected with unbalanced chromosomes may be higher if a parent carries a balanced translocation. These risks depend on the breakpoints of the parental balanced translocation. Parental genetic testing via chromosome analysis/karyotype is available to help us determine the etiology of the T-13 if desired. We additionally reviewed the family history of FLNA Deficiency. Both of Zuleika's daughter have been diagnosed with FLNA Deficiency. 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 She plans to get genetically tested through her neurologist. Her neurologist also plans to have her undergo brain imaging after . The etiology and natural history of FLNA Deficiency was reviewed in detail. FLNA Deficiency is an X-linked dominant condition caused by a mutation in the FLNA gene. About 50% of the time, the FLNA mutation is new in that individual (de joe). This condition is prenatally or neonatally lethal in most males, so most affected individuals are female. An FLNA mutation can cause a spectrum of symptoms including but not limited to periventricular nodular heterotopia (PNH) and other brain malformations (i.e. christiano cisterna magna, anomalies of the corpus callosum), congenital heart defects (commonly PDA, ASD, or VSD), valvular dystrophy, dilatation and rupture of the thoracic aorta, pulmonary disease (i.e. pulmonary hypertension, alveolar hypoplasia, emphysema, asthma, chronic bronchitis), gastrointestinal dysmotility and obstruction, joint hypermobility, and macrothrombocytopenia. Of note, PNH may be visualized on imaging as early as 20-24 weeks gestation, however, ultrasound is relatively insensitive at detecting it. Treatment and management for the condition often includes anti-seizure medications for those with seizures, regular cardiology follow up (echocardiogram, stress testing, and cardiac MRI as recommended by radiation physicist), pulmonology visits for any lung issues, standard treatment for bowel issues, aortic/carotid dissection, and congenital heart and valvular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
--- OUTSIDE RECORDS SUMMARY | 2023-07-18 11:42 | XMS_ITS | CCD ---
Author Name Unknown Address [address] [place] [address] Organization [facility] Care Team Providers Care Logistics Clerk Name Role Phone CLARA JAMA Unavailable Unavail able SERENITY MALDONADO Unavailable Unavailable OKSANA CARO Unavailable Unavai NAGA Barrios Unavailable Unavailable BARBOSA, LUKE MALIK Unavailable Unavailable Salomon Nguyen Unavailable Unavailable Salomon Nguyen Unavailable Unavailable Barbosa, Luke Unavailable Unavailable Sheffield, Christian A Unavailable Unavailable Barbosa, Luke Unavailable Unavailable Sheffield, Christian A Unavailable Unavailable Barbosa, Luke Unavailable Unavailable Sheffield, Christian A Unavailable Unavailable Barbosa, Luke Unavailable Unavailable Shekhar, Christian A Unavailable Unavailable Barbosa, Luke Unavailable Unavailable Shekhar, Christian A Unavailable Unavailable Shekhar, Chritsian A Unavailable Unavailable Barbosa, Luke Unavailable Unavailable Sheffield, Christian A Unavailable Unavailable Barbosa, Luke Unavailable Unavailable Sheffield, Christian A Unavailable Unavailable Sheffield, Christian A Unavailable Unavailable Barbosa, Luke Unavailable Unavailable Barbosa, Luke Unavailable Unavailable Woo, Emiliano Unavailable Unavailable Woo, Emiliano Unavailable Unavailable Patrick Salomon R Unavailable Unavailable Barbosa, Luke Unavailable Unavailable Barbosa, Luke Unavailable Unavailable Oscar, Jag W Unavailable Unavailable Barco, Jag W Unavailable Unavailable Shekhar, Christian A [...] No Doctor Assigned, Nodr Unavailable Unavail able Barco, Jag W Unavailable Unavailable Barco, Jag W Unavailable Unavailable Barbosa, Luke Unavailable Unavailable No Doctor Assigned, Nodr Unavailable Unavail able Savage, Gamaliel M Unavailable Unavailable Barbosa, Luke Unavailable Unavailable Hannah, Aaron A Unavailable Unavailable Hannah, Aaron A Unavailable Unavailable Patrick, Salomon R Unavailable Unavailable Patrick, Salomon R Unavailable Unavailable Barbosa, Luke Unavailable Unavailable Frank, Ujanita Unavailable Unavailable Frank, Juanita Unavailable Unavailable Barbosa, Luke Unavailable Unavailable Sheffield, Christian A Unavailable Unavailable Sheffield, Christian A Unavailable Unavailable Barbosa, Luke Unavailable Unavailable Shekhar, Christian A Unavailable Unavailable Barbosa, Luke Unavailable Unavailable Barbosa, Luke Unavailable Unavailable Barco, Jag W Unavailable Unavailable Oscar, Jag W Unavailable Unavailable Shekhar, Christian A Unavailable Unavailable Barbosa, Luke Unavailable Unavailable Savage, Gamaliel M Unavailable Unavailable Savage, Gamaliel M Unavailable Unavailable Barbosa, Luke Unavailable Unavailable Sheffield, Christian A Unavailable Unavailable Barbosa, Luke Unavailable [...] Emergency Provider SADAF Wyatt [facility] Elle Whitney Emergency Provider DR CUONG PAGAN Consulting [facility] Unavailable POLO ., DR ACOSTA Attending Unavailable POLO ., DR ACOSTA Admitting Unavailable POLO ., DR ACOSTA Admitting Unavailable POLO ., DR ACOSTA Attending Unavailable [facility] Care Unavailable POLO ., DR ACOSTA Consulting Unavailable SUSI, DR FELECIA Chadwick Consulting Unavailable [facility] Primary Care Unavailable KARASIK ., DR CAMACHO Admitting Unavailabl e KARASIK ., DR CAMACHO Attending Unavailabl e KARASIK ., DR CAMACHO Consulting Unavailabl e WEST, DR GAMALIEL Fischer Consulting Unavailable POLO ., DR ACOSTA Consulting Unavailable ZIEBER, DR FELECIA Chadwick Consulting Unavailable WILLIAMS ., BARB Admitting Unavailable WILLIAMS ., BARB Attending Unavailable [facility] Care Unavailable WILLIAMS ., BARB Consulting Unavailable POLO ., DR ACOSTA Admitting Unavailable POLO ., DR ACOSTA Attending Unavailable [facility] Primary Care Unavailable POLO ., DR ACOSTA Consulting Unavailable [facility] Primary Care Unavailable KARASIK ., DR CAMACHO Admitting Unavailabl e KARASIK ., DR CAMACHO Attending Unavailabl e KARASIK ., DR CAMACHO Consulting Unavailabl e POLO ., DR ACOSTA Admitting Unavailable POLO ., DR ACOSTA Attending Unavailable [facility] Primary Care Unavailable POLO ., DR ACOSTA Consulting Unavailable ZIEBER, DR FELECIA Chadwick Consulting Unavailable POLO ., DR ACOSTA Admitting Unavailable POLO ., DR ACOSTA Attending Unavailable [facility] Primary Care Unavailable POLO ., DR ACOSTA Consulting Unavailable ZIEBER, DR FELECIA Chadwick Consulting Unavailable PRATIMA, BRODIE Consulting Unavailable POLO ., DR ACOSTA Consulting Unavailable [facility] Care Unavailable POLO ., DR ACOSTA Attending Unavailable POLO ., DR ACOSTA Admitting Unavailable ZIEBER, DR FELECIA Chadwick Consulting Unavailable POLO ., DR ACOSTA Consulting Unavailable [facility] Primary Care Unavailable POLO ., DR ACOSTA Attending Unavailable POLO ., DR ACOSTA Admitting Unavailable POLO ., DR ACOSTA Admitting Unavailable POLO ., DR ACOSTA Attending Unavailable [facility] Primary Care Unavailable POLO ., DR ACOSTA Consulting Unavailable ZIEBER, DR FELECIA Chadwick Consulting Unavailable POLO ., DR ACOSTA Admitting Unavailable POLO ., DR ACOSTA Attending Unavailable [facility] Primary Care Unavailable WEST, DR GAMALIEL Fischer Consulting Unavailable POLO ., DR ACOSTA Consulting Unavailable [facility] Primary Care Unavailable KARASIK ., DR CAMACHO Admitting Unavailabl e KARASIK ., DR CAMACHO Attending Unavailabl e KARASIK ., DR CAMACHO Consulting Unavailabl e POLO ., DR ACOSTA Consulting Unavailable ZIEBER, DR FELECIA Chadwick Consulting Unavailable OPLO ., DR ACOSTA Admitting Unavailable POLO ., DR ACOSTA Attending Unavailable [facility] Care Unavailable WEST, DR GAMALIEL Fischer Consulting Unavailable POLO ., DR ACOSTA Consulting Unavailable POLO ., DR ACOSTA Admitting Unavailable POLO ., DR ACOSTA Attending Unavailable [facility] Primary Care Unavailable POLO ., DR ACOSTA Consulting Unavailable POLO ., DR ACOSTA Admitting Unavailable POLO ., DR ACOSTA Attending Unavailable [facility] Primary Care Unavailable POLO ., DR ACOSTA Consulting Unavailable ZIEBER, DR FELECIA Chadwick Consulting Unavailable POLO ., DR ACOSTA Admitting Unavailable POLO ., DR ACOSTA Attending Unavailable [facility] Primary Care Unavailable POLO ., DR ACOSTA Consulting Unavailable POLO ., DR ACOSTA Admitting Unavailable POLO ., DR ACOSTA Attending Unavailable [facility] Primary Care Unavailable POLO ., DR ACOSTA Consulting Unavailable [facility] Primary Care Unavailable POLO ., DR ACOSTA Attending Unavailable POLO ., DR ACOSTA Admitting Unavailable POLO ., DR ACOSTA Admitting Unavailable POLO ., DR ACOSTA Attending Unavailable [facility] Primary Care Unavailable POLO ., DR ACOSTA Admitting Unavailable POLO ., DR ACOSTA Attending Unavailable [facility] Primary Care Unavailable KARASIK ., DR CAMACHO Consulting Unavailabl e POLO ., DR ACOSTA Consulting Unavailable POLO ., DR ACOSTA Procedure Practitioner Unavail able ORLANDO PRASAD Consulting Unavailable JACQUES FLETCHER Consulting Unavailable POLO ., DR ACOSTA Admitting Unavailable POLO ., DR ACOSTA Attending Unavailable [facility] Primary Care Unavailable KARASIK ., DR CAMACHO Consulting Unavailabl e ZIEBER, DR FELECIA Chadwick Consulting Unavailable SADAF Wyatt Primary Care Provider MD Farhan Jean Attending Provider [phone] DO Lui Oscar Emergency Provider Itzkowidalila, DO Arden Admit Provider Itzdevorah, DO Arden Attending Provider [place], CSTJAROCHO Igor Other Provider UnavailMD Juan Edwards Other Provider HAROON Monique Other Provider [phone] MD Jacques Valerio Other Provider MD Edith Urias Other Provider SADAF Wyatt Primary Care Provider Meagan PULPER TENDER-OSVALDO Elle E Emergency Provider [phone] BRANNON Valencia Emergency Provider BARB KRAMER Attending [...] Unavailable Andie Wyatt PA-C Primary Care Provider CUONG ORTIZ Referring Unavailable ANDIE WYATT Primary Care Unavailable Allergies Allergy Classification Reported Allergen(s) Allergy Type Date of Onset Reaction(s) Facility (2 sources) Bee; Translations: [BEES] Propensity to adverse reactions (disorder) 8 AOF [facility] Other [facility]ository (2 sources) Mold spore; Translations: [MOLD SPORES] Propensity to adverse [facility] (disorder[facility] sources) Penicillins; Translations: [PENICILLINS] Propensity to adverse reactions to drug (disorder) 4 Hives [facility] Repository (10 sources) Sulfonamides (Antibiotic); Translations: [SULFA (SULFONAMIDE ANTIBIOTICS)] Propensity to adverse reactions to drug (disorder) 8 AOF, Rash [facility] Repository (1 source) Bee/Wasp/Ant venom; Translations: [Bee Stings] Propensity to adverse reactions to drug (disorder) [facility] Repository (1 source) mold extract; Translations: [Mold] Drug Allergy [facility] Repository (1 source) Sulfonamides (Antibiotic); Translations: [sulfa drugs] Propensity to adverse reactions to drug (disorder) [facility] Repository (1 source) bee venom; Translations: [BEE VENOM] Propensity to adverse reactions to drug (disorder) 8 [facility] Repository (1 source) OTHER; Translations: [OTHER] Propensity to adverse reactions to food (disorder) 8 [facility] Repository (1 source) MOLDS & SMUTS; Translations: [MOLDS & SMUTS] Propensity to adverse reactions to drug (disorder) 8 [facility] Repository (1 source) SULFA ANTIBIOTICS; Translations: [SULFA ANTIBIOTICS] Propensity to adverse reactions to drug (disorder) 8 [facility] Repository (1 source) Sulfonamides (Antibiotic) Drug allergy (disorder) 4 [facility] Repository (2 sources) Bee Venom Protein (Honey [...] Start: 08-06-2022 fluconazole (DIFLUCAN) 10 mg/mL suspension [place] (No Known Home Meds) (2 sources) Start: 12-18-2022 [place] (No Known Home Meds) Active December 18, [...] Onset: 11-30-2017 Unclassified (3 sources) M/C OTH SCOW CAPTAIN 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 NA/UNS; Translations: [M/C OTH SCOW CAPTAIN 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 NA/UNS] Onset: 07-05-2022 Unclassified (1 [...] 12-12-2021 Episodic Unclassified (1 source) M/C OTH SCOW CAPTAIN 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 NA/UNS; Translations: [M/C OTH SCOW CAPTAIN 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 NA/UNS] Onset: 07-02-2022 Results Test Name Value Interpretation Reference Range Facility ABO/Rh Retypeon 12-19-2022 ABO/RH Recheck Result Positive Normal [facility] Comment on above: Result Comment: PERF ORMED BY: [facility] [address] [place] [address] PATHOLOGIST SKILLED NURSING FACILITIES PROFESSIONAL MALVIN MEDLEY M.D. Amphetamine Screen Ql (U)Ord ered By: Oscar Poe on 12-19-2022 Amphetamines Ql (U) Negative Negative [facility] Amylaseon 12-19-2022 Amylase [Catalytic activity/Vol] 35 U/L Normal 29-103 [facility] Comment on above: Performed By: #### C BC, CREAT, GLU, LYTES, AST, ETOH, BARB, LIPASE, CK, BUN ####[facility] [place] [id number] [facility] Aspartate Amino Transferaseo n 12-19-2022 AST [Catalytic activity/Vol] 26 U/L Normal 13-39 [facility] Comment on above: Performed By: #### C BC, CREAT, GLU, LYTES, AST, ETOH, BARB, LIPASE, CK, BUN ####[facility] [place] [id number] [facility] Automated erythrocytes count in urine sediment (number/area)Ordered By: Oscar Poe on 12-19-2022 RBC Auto (Urine sed) [#/Area] 5-9 [HPF] 0-4 [facility] Automated leukocytes count i n urine sediment (number/area)Ordered By: Oscar Poe on 12-19-2022 WBC Auto (Urine sed) [#/Area] 10-19 [HPF] 0-4 [facility] Barbiturates [Presence] in U rine by Screen methodOrdered By: Oscar Poe on 12-19-2022 Barbiturates Screen Ql (U) Negative Negative [facility] Benzodiazepines Screen Ql (U )Ordered By: Oscar Poe on 12-19-2022 Benzodiazepines Ql (U) Negative Negative [facility] Benzoylecgonine [Presence] i n Urine by Screen methodOrdered By: Oscar Poe on 12-19-2022 Benzoylecgonine Screen Ql (U) Negative Negative [facility] Bilirubin Test strip Ql (U)O rdered By: Oscar Poe on 12-19-2022 Bilirubin Ql (U) Negative Negative [facility] Blood Urea Nitrogenon 2022 Urea nitrogen [Mass/Vol] 21 mg/dL Normal 7-25 [facility] Comment on above: Performed By: #### C BC, CREAT, GLU, LYTES, AST, ETOH, BARB, LIPASE, CK, BUN ####[facility] [address]ff[address] cervical spine wo conon 0 12-19-2022 CT cervical spine wo con [facility] [address] [place] [address] CT Scan Report Signed Patient: Zuleika Wyatt MR#: [id number] : 1990 Acct:[id number] Age/Sex: 32 / F ADM Date: 12/19/22 Loc: Room: [address] [place] [address] Type: ADM INOo Attending Dr: Arden Orozco DO Copies to: DO Arden Jefferson DO Ordering Provider: Oscar Poe DO Date of Service: 12/18/22 CT/CT cervical spine wo con: f ([id number]) CT/CT head/brain wo con: f CT BRAIN [...] Pimentel Jr., D.OAlexa12/19/2022 10:25 AM Dictation Location: [place] [address] Transcribed By: [facility] 12/19/22 1025 Dictated By: Rah Pimentel Jr, DO 12/19/22 1016 Signed By: 12/19/22 [address] [facility] [address] head/brain wo conon 12-19 CT head/brain wo con [facility] [address] [place] [address] CT Scan Report Signed Patient: Zuleika Wyatt MR#: [id number] : 1990 Acct:[id number] Age/Sex: 32 / F ADM Date: 12/19/22 Loc: Room: [address] [place] [address] Type: DIS INOo Attending Dr: Arden Orozco [...] HERNIATION. Impression dictated by: Rah Pimentel Jr. DAlexaOAlexa12/19/2022 3:28 PM Dictation Location: [id number]-08 Transcribed By: DONTE 12/19/22 1528 Dictated By: Rah Pimentel Jr, 12/19/22 1524 Signed By: 12/19/22 [address] [facility] [address] lumbar spine wo radha CT lumbar spine wo con [facility] Main [place] [address] [place] [address] [address] Scan Report Signed Patient: Zuleika Wyatt MR#: [id number] : 1990 Acct:[id number] Age/Sex: 32 / F ADM Date: 12/19/22 Loc: Room: [address] [place] [address] Type: ADM INOo Attending Dr: Arden Orozco DO Copies to: DO Arden Jefferson DO Ordering Provider: Oscar Poe DO Date of Service: 12/18/22 CT/CT thoracic spine wo con: f ([id number]) CT/CT lumbar spine wo con: f CT [...] narrowing or hypertrophy. The ribs within the yrocm-yj-zacw appear intact. No paraspinal soft tissue abnormalities are present. The ascending aorta is mildly ectatic. The heart is not fully imaged though it is at least borderline prominent. There is no consolidation, pleural effusion or pneumothorax within the ltckr-tv-pioy. No lumbar compression fractures are identified. There [...] The intra-abdominal and pelvic structures within the ojmtv-ag-lyrz show no contributory findings. CT/CT thoracic spine wo con IMPRESSION: MILD THORACIC SCOLIOSIS. NO ACUTE BONY INJURY INVOLVING THE THORACIC OR LUMBAR SPINE. Impression dictated by: Adela Mahan M.D.12/19/2022 10:36 AM Dictation Location: [place] [address] Transcribed By: [facility] 12/19/22 1036 Dictated By: Adela Mahan MD 12/19/22 1026 Signed By: 12/19/22 1036 Normal [facility] Cannabinoids [Presence] in U rine by Screen methodOrdered By: Oscar Poe on 12-19-2022 Cannabinoids Screen Ql (U) Positive Negative [facility] Comment on above: These are unconfirme d results and should not be used for legal purposes. Drug Cut-Off Concentration: AMPH 1000 ng/mL SEEMA 200 ng/mL LAZ 200 ng/mL COCM 300 ng/mL OP 300 ng/mL PCP 25 ng/mL THC 20 ng/mL Color Auto (U)Ordered By: [place] Poe on 12-19-2022 Color (U) Yellow Yellow [facility] Complete Blood Count Auto Di ffon 12-19-2022 Basophils (Bld) [#/Vol] 0.1 10*3/uL Normal 0.0-0.2 [facility] Comment on above: Result Comment: PERF ORMED BY: [facility] [address] [place] [address] PATHOLOGIST SKILLED NURSING FACILITIES PROFESSIONAL MALVIN MEDLEY M.D. Performed By: #### C BC, CREAT, GLU, LYTES, AST, ETOH, BARB, LIPASE, CK, BUN ####[place] [address] [place] [id number] [place] Basophils/100 WBC (Bld) 0.7 % Normal . [facility] Comment on above: Performed By: #### C BC, CREAT, GLU, LYTES, AST, ETOH, BARB, LIPASE, CK, BUN ####[place] [address] [place] [id number] [place] Eosinophils (Bld) [#/Vol] 0.0 10*3/uL Normal 0.0-0.45 [facility] Comment on above: Performed By: #### C BC, CREAT, GLU, LYTES, AST, ETOH, BARB, LIPASE, CK, BUN ####[address] Eosinophils/100 WBC (Bld) 0.2 % Normal . [facility] Comment on above: Performed By: #### C BC, CREAT, GLU, LYTES, AST, ETOH, BARB, LIPASE, CK, BUN ####[address] Erythrocyte distribution width (RBC) [Ratio] 14.4 % Normal 11.9-15.3 [facility] Comment on above: Performed By: #### C BC, CREAT, GLU, LYTES, AST, ETOH, BARB, LIPASE, CK, BUN ####[address] Hematocrit (Bld) [Volume fraction] 36.2 % Normal 34.0-46.4 [facility] Comment on above: Performed By: #### C BC, CREAT, GLU, LYTES, AST, ETOH, BARB, LIPASE, CK, BUN ####[address] Hemoglobin (Bld) [Mass/Vol] 11.9 g/dL Normal 11.8-15.4 [facility] Comment on above: Performed By: #### C BC, CREAT, GLU, LYTES, AST, ETOH, BARB, LIPASE, CK, BUN ####[address] Lymphocytes (Bld) [#/Vol] 2.2 10*3/uL Normal 1.00-4.8 [facility] Comment on above: Performed By: #### C BC, CREAT, GLU, LYTES, AST, ETOH, BARB, LIPASE, CK, BUN ####[address] Lymphocytes/100 WBC (Bld) 21.8 % Normal . [facility] Comment on above: Performed By: #### C BC, CREAT, GLU, LYTES, AST, ETOH, BARB, LIPASE, CK, BUN ####[address] MCH (RBC) [Entitic mass] 26.9 pg Normal 24.7-34.3 [facility] Comment on above: Performed By: #### C BC, CREAT, GLU, LYTES, AST, ETOH, BARB, LIPASE, CK, BUN ####[address] MCV (RBC) [Entitic vol] 82.1 fL Normal 80-100 [facility] Comment on above: Performed By: #### C BC, CREAT, GLU, LYTES, AST, ETOH, BARB, LIPASE, CK, BUN ####[address] Mean Corpuscular HGB Conc 32.8 g/dL Normal 32.0-35.0 [facility] Comment on above: Performed By: #### C BC, CREAT, GLU, LYTES, AST, ETOH, BARB, LIPASE, CK, BUN ####[address] Monocytes (Bld) [#/Vol] 0.8 10*3/uL Normal 0.0-0.8 [facility] Comment on above: Performed By: #### C BC, CREAT, GLU, LYTES, AST, ETOH, BARB, LIPASE, CK, BUN ####[address] Monocytes/100 WBC (Bld) 22.19 % High 0.00-20.00 [facility] Comment on above: Result Comment: For adults in ED, MDW > 20.0 may be associated with a higher risk of sepsis during the first 12 hrs of hospital admission Performed By: #### C BC, CREAT, GLU, LYTES, AST, ETOH, BARB, LIPASE, CK, BUN ####[address] Monocytes/100 WBC (Bld) 7.4 % Normal . [facility] Comment on above: Performed By: #### C BC, CREAT, GLU, LYTES, AST, ETOH, BARB, LIPASE, CK, BUN ####[address] Neutrophils (Bld) [#/Vol] 7.2 10*3/uL Normal 1.8-7.7 [facility] Comment on above: Performed By: #### C BC, CREAT, GLU, LYTES, AST, ETOH, BARB, LIPASE, CK, BUN ####[address] Neutrophils/100 WBC (Bld) 69.9 % Normal . [facility] Comment on above: Performed By: #### C BC, CREAT, GLU, LYTES, AST, ETOH, BARB, LIPASE, CK, BUN ####[address] NRBC% 0.1 /100{WBC} Normal 0-0.5 [facility] Comment on above: Performed By: #### C BC, CREAT, GLU, LYTES, AST, ETOH, BARB, LIPASE, CK, BUN ####[address] Platelet mean volume (Bld) [Entitic vol] 8.1 fL Normal 6.3-10.7 [facility] Comment on above: Performed By: #### C BC, CREAT, GLU, LYTES, AST, ETOH, BARB, LIPASE, CK, BUN ####[address] Platelets (Bld) [#/Vol] 223 10*3/uL Normal 150-450 [facility] Comment on above: Performed By: #### C BC, CREAT, GLU, LYTES, AST, ETOH, BARB, LIPASE, CK, BUN ####[address] RBC (Bld) [#/Vol] 4.42 10*6/uL Normal 3.60-5.00 [facility] Comment on above: Performed By: #### C BC, CREAT, GLU, LYTES, AST, ETOH, BARB, LIPASE, CK, BUN ####[address] WBC (Bld) [#/Vol] 10.3 10*3/uL Normal 3.8-11.6 [facility] Comment on above: Performed By: #### C BC, CREAT, GLU, LYTES, AST, ETOH, BARB, LIPASE, CK, BUN ####[address] Creatine Kinaseon 12-19-2022 CK [Catalytic activity/Vol] 50 U/L Normal 30-223 [facility] Comment on above: Result Comment: PERF ORMED BY: [facility] [address] [facility] [place] [address] PATHOLOGIST SKILLED NURSING FACILITIES PROFESSIONAL MALVIN MEDLEY M.D. Performed By: #### C BC, CREAT, GLU, LYTES, AST, ETOH, BARB, LIPASE, CK, BUN ####[address] Creatinineon 12-19-2022 Creatinine [Mass/Vol] 0.84 mg/dL Normal 0.60-1.20 [facility] Comment on above: Performed By: #### C BC, CREAT, GLU, LYTES, AST, ETOH, BARB, LIPASE, CK, BUN ####[address] Creatinine Clr [facility] 98.[address] [facility] Comment on above: Performed By: #### C BC, CREAT, GLU, LYTES, AST, ETOH, BARB, LIPASE, CK, BUN ####[address] GFR/1.73 sq M.predicted MDRD (S/P/Bld) [Vol rate/Area] mL/min/{1.73_m2} [facility] Comment on above: Performed By: #### C BC, CREAT, GLU, LYTES, AST, ETOH, BARB, LIPASE, CK, BUN ####[facility] [id number] [place] [address] [place] Dipstick and Microscopicon 0 12-19-2022 Appearance (U) Clear Normal Clear [facility] Comment on above: Order Comment: Name Collection Type:: Clean-Voided Midstream Performed By: #### U RDS, UHCG, CUU, ADDONUAPLUS #### [facility] [address] [place] [address] [place] Bacteria,Urine None Seen Normal None Seen [facility] Comment on above: Order Comment: Name Collection Type:: Clean-Voided Midstream Performed By: #### U RDS, UHCG, CUU, ADDONUAPLUS #### [facility] [address] [place] [address] [place] Bilirubin,Urine Negative Normal Negative [facility] Comment on above: Order Comment: Name Collection Type:: Clean-Voided Midstream Performed By: #### U RDS, UHCG, CUU, ADDONUAPLUS #### [facility] [address] [place] [address] [place] Color (U) Yellow Normal Yellow [facility] Comment on above: Order Comment: Name Collection Type:: Clean-Voided Midstream Performed By: #### U RDS, UHCG, CUU, ADDONUAPLUS #### [facility] [address] [place] [address] [place] Glucose Ql (U) Normal Normal Normal [facility] Comment on above: Order Comment: Name Collection Type:: Clean-Voided Midstream Performed By: #### U RDS, UHCG, CUU, ADDONUAPLUS #### [facility] [address] [place] [address] [place] Hyaline Casts,Urine 0-8 Normal 0-8 [facility] Comment on above: Order Comment: Name Collection Type:: Clean-Voided Midstream Performed By: #### U RDS, UHCG, CUU, ADDONUAPLUS #### [facility] [address] [place] [address] [place] Ketones Ql (U) 1+ High Negative [facility] Comment on above: Order Comment: Name Collection Type:: Clean-Voided Midstream Performed By: #### U RDS, UHCG, CUU, ADDONUAPLUS #### [facility] [address] [place] [address] Leukocyte esterase Test strip Ql (U) 2+ High Negative [facility] Comment on above: Order Comment: Name Collection Type:: Clean-Voided Midstream Performed By: #### U RDS, UHCG, CUU, ADDONUAPLUS #### [facility] [address] [place] [address] Nitrite,Urine Negative Normal Negative [facility] Comment on above: Order Comment: Name Collection Type:: Clean-Voided Midstream Performed By: #### U RDS, UHCG, CUU, ADDONUAPLUS #### [facility] [address] [place] [address] Occult Blood,Urine Negative Normal Negative [facility] Comment on above: Order Comment: Name Collection Type:: Clean-Voided Midstream Performed By: #### U RDS, UHCG, CUU, ADDONUAPLUS #### [facility] [address] [place] [address] pH (U) 5.5 [pH] Normal 5.0-9.0 [facility] Comment on above: Order Comment: Name Collection Type:: Clean-Voided Midstream Performed By: #### U RDS, UHCG, CUU, ADDONUAPLUS #### [facility] [address] [place] [address] [place] Protein,Urine Negative Normal Negative [facility] Comment on above: Order Comment: Name Collection Type:: Clean-Voided Midstream Performed By: #### U RDS, UHCG, CUU, ADDONUAPLUS #### [facility] [address] [place] [address] [place] RBC,Urine 5-9 High 0-4 [facility] Comment on above: Order Comment: Name Collection Type:: Clean-Voided Midstream Performed By: #### U RDS, UHCG, CUU, ADDONUAPLUS #### [address] [place] [address] [place] Specificy [place],Urine 1.025 Normal 1.001-1.030 [facility] Comment on above: Order Comment: Name Collection Type:: Clean-Voided Midstream Performed By: #### U RDS, UHCG, CUU, ADDONUAPLUS #### [facility] [address] [place] [address] Squamous Epithelial Cell,Urine 3-4 High 0-2 [facility] Comment on above: Order Comment: Name Collection Type:: Clean-Voided Midstream Performed By: #### U RDS, UHCG, CUU, ADDONUAPLUS #### [facility] [address] [place] [address] Urobilinogen,Urine Normal Normal Normal [facility] Comment on above: Order Comment: Name Collection Type:: Clean-Voided Midstream Performed By: #### U RDS, UHCG, CUU, ADDONUAPLUS #### [facility] [address] [place] [address] WBC,Urine 10-19 High 0-4 [facility] Comment on above: Order Comment: Name Collection Type:: Clean-Voided Midstream Performed By: #### U RDS, UHCG, CUU, ADDONUAPLUS #### [facility] [address] [place] [address] Drug Screen,Urineon 12-20-19 23 Amphetamine Screen,Urine Negative Normal Negative [facility] Comment on above: Performed By: #### U RDS, UHCG, CUU, ADDONUAPLUS #### [facility] [address] [place] [address] Barbiturate Screen,Urine Negative Normal Negative [facility] Comment on above: Performed By: #### U RDS, UHCG, CUU, ADDONUAPLUS #### [address] Benzodiazepines Screen,Urine Negative Normal Negative [facility] Comment on above: Performed By: #### U RDS, UHCG, CUU, ADDONUAPLUS #### [place] [address] [place] Cannabinoid Screen,Urine Positive High Negative [facility] Comment on above: Result Comment: Thes e are unconfirmed results and should not be used for legal purposes. Drug Cut-Off Concentration: AMPH 1000 ng/mL SEEMA 200 ng/mL LAZ 200 ng/mL COCM 300 ng/mL OP 300 ng/mL PCP 25 ng/mL THC 20 ng/mL PERFORMED BY: [place] [id number] PATHOLOGIST [employer] PROFESSIONAL MALVIN MEDLEY M.D. Performed By: #### U RDS, UHCG, CUU, ADDONUAPLUS #### [place] [address] [place] Cocaine Screen,Urine Negative Normal Negative [facility] Comment on above: Performed By: #### U RDS, UHCG, CUU, ADDONUAPLUS #### [place] [address] [place] Opiate Screen,Urine Negative Normal Negative [facility] Comment on above: Performed By: #### U RDS, UHCG, CUU, ADDONUAPLUS #### [place] [address] [place] Phencyclidine Screen,Urine Negative Normal Negative [facility] Comment on above: Performed By: #### U RDS, UHCG, CUU, ADDONUAPLUS #### [address] ECG 12 lead ECGon 12-19-2022 ECG 12 lead ECG [facility] [place] [address] [place] [address] Electrocardiograph Report Signed Patient: Zuleika Wyatt MR#: [id number] : 1990 Acct:[id number] Age/Sex: 32 / F ADM Date: 12/19/22 Loc: 4 Room: [address] [place] [address] Type: DIS INOo Attending Dr: Arden Orozco [...] ECGs available Confirmed by OSCAR POE DO ([id number]) on 12/19/2022 10:18:39 PM Referred By: Electronically Signed By:OSCAR POE DO Transcribed By: MUS Signed By Oscar Poe DO 12/19 2218 Normal [facility] Electrolyteson 12-19-2022 Anion gap [Moles/Vol] 14.5 mmol/L Normal 6.0-15.0 [facility] Comment on above: Performed By: #### C BC, CREAT, GLU, LYTES, AST, ETOH, BARB, LIPASE, CK, BUN ####[address] Chloride [Moles/Vol] 105 mmol/L Normal 98-107 [facility] Comment on above: Performed By: #### C BC, CREAT, GLU, LYTES, AST, ETOH, BARB, LIPASE, CK, BUN ####[address] CO2 [Moles/Vol] 20.0 mmol/L Low 21.0-31.0 [facility] Comment on above: Performed By: #### C BC, CREAT, GLU, LYTES, AST, ETOH, BARB, LIPASE, CK, BUN ####[address] Potassium [Moles/Vol] 3.5 mmol/L Normal 3.5-5.1 [facility] Comment on above: Performed By: #### C BC, CREAT, GLU, LYTES, AST, ETOH, BARB, LIPASE, CK, BUN ####[address] Sodium [Moles/Vol] 136 mmol/L Normal 136-145 [facility] Comment on above: Performed By: #### C BC, CREAT, GLU, LYTES, AST, ETOH, BARB, LIPASE, CK, BUN ####[address] Ethyl Alcohol Profileon Ethanol [Mass/Vol] mg/dL Normal [facility] Comment on above: Performed By: #### C BC, CREAT, GLU, LYTES, AST, ETOH, BARB, LIPASE, CK, BUN ####[address] Percent Ethanol Not performed Normal [facility] Comment on above: Result Comment: PERF ORMED BY: [facility] [address] [place] [address] PATHOLOGIST [employer]IES PROFESSIONAL MALVIN MEDLEY M.D. Performed By: #### C BC, CREAT, GLU, LYTES, AST, ETOH, BARB, LIPASE, CK, BUN ####[address] Glucoseon 12-19-2022 Glucose [Mass/Vol] 93 mg/dL Normal 70-100 [facility] Comment on above: Result Comment: [facility] Glucose Reference Range is dependent on time and content of last meal. Glucose of more than 200 mg/dL in a nonstressed, ambulatory subject supports the diagnosis of Diabetes Mellitus. ADA recommended reference range Performed By: #### C BC, CREAT, GLU, LYTES, AST, ETOH, BARB, LIPASE, CK, BUN ####[address] HCG ( test) IAclemencia d Ql (U)Ordered By: Oscar Poe on 12-19-2022 HCG ( test) Ql (U) Negative [facility] HCG,Qualitative Serumon HCG,Qualitative Serum Negative Normal [facility] Comment on above: Result Comment: PERF ORMED BY: [facility] [address] [place] [address] PATHOLOGIST [employer]IES PROFESSIONAL MALVIN MEDLEY M.D. Performed By: #### H CGQUAL #### [facility] [address] [place] [id number] [facility] HCG,Urineon 12-19-2022 Beta HCG ( test) Ql (U) Negative Normal [facility] Comment on above: Order Comment: Name Collection Type:: Clean-Voided Midstream Result Comment: PERF ORMED BY: [place] [id number] PATHOLOGIST [employer] NURSING [employer]IES PROFESSIONAL MALVIN MEDLEY M.D. Performed By: #### U RDS, UHCG, CUU, ADDONUAPLUS #### [facility] [address] Ketones Auto test strip (U) [Mass/Vol]Ordered By: Oscar Poe on 12-19-2022 Ketones (U) [Mass/Vol] 1+ Negative [facility] Laboratory - UrinalysisOrder ed By: Oscar Poe on 12-19-2022 Hyaline casts LM Ql (Urine sed) 0-8 [LPF] 0-8 [facility] Lipaseon 12-19-2022 Lipase [Catalytic activity/Vol] 29.0 U/L Normal 11.0-82.0 [facility] Comment on above: Result Comment: PERF ORMED BY: [place] [id number] PATHOLOGIST [employer] NURSING [employer]AC[employer]IES PROFESSIONAL MALVIN MEDLEY M.D. Performed By: #### C BC, CREAT, GLU, LYTES, AST, ETOH, BARB, LIPASE, CK, BUN ####[facility] [address] Nitrite Test strip Ql (U)Ord ered By: Oscar Poe on 12-19-2022 Nitrite Ql (U) Negative Negative [facility] Opiates [Presence] in Urine by Screen methodOrdered By: Oscar Poe on 12-19-2022 Opiates Screen Ql (U) Negative Negative [facility] Phencyclidine Screen Ql (U)O rdered By: Oscar Poe on 12-19-2022 Phencyclidine Ql (U) Negative Negative [facility] Protein Auto test strip (U) [Mass/Vol]Ordered By: Oscar Poe on 12-19-2022 Protein (U) [Mass/Vol] Negative Negative [facility] Specific gravity Auto test s trip (U) [Rel density]Ordered By: Oscar Poe on 12-19-2022 Specific gravity (U) [Rel density] 1.025 1.001-1.030 [facility] Squamous epithelial cells de tection in urine sediment by light microscopyOrdered By: Oscar Poe on 12-19-2022 Epithelial cells.squamous LM Ql (Urine sed) 3-4 [HPF] 0-2 [facility] Type and Screenon 12-19-2022 ABO and Rh group Nom (Bld) Blood group A Rh(D) positive Normal [facility] Comment on above: Result Comment: PERF ORMED BY: [place] [id number] PATHOLOGIST SK[employer] NURSING FAC[employer]IES PROFESSIONAL MALVIN MEDLEY M.D. Urine Cultureon 12-19-2022 Bacteria identified Cx Nom (U) >100,000 colonies/ml mixed bacterial skin contaminants 2 Days PERFORMED BY: [place] [id number] PATHOLOGIST [employer] NURSING [employer]AC[employer]IES PROFESSIONAL MALVIN MEDLEY M.D. Normal [facility] Comment on above: Performed By: #### U RDS, UHCG, CUU, ADDONUAPLUS ####[facility] [place] [id number] [facility] Urine bacteria detection by automated methodOrdered By: Oscar Poe on 12-19-2022 Bacteria Auto Ql (U) None seen None Seen [facility] Urine clarity by refractomet ry automatedOrdered By: Oscar Poe on 12-19-2022 Clarity Refractometry automated (U) Clear Clear [facility] Urine culture routineOrdered By: Oscar Poe on 12-19-2022 Bacteria identified Cx Nom (U) 2 Days [facility] Urine glucose measurement by automated test strip (mass/volume)Ordered By: Oscar Poe on 12-19-2022 Glucose Auto test strip (U) [Mass/Vol] Normal mg/dL Normal [facility] Urine hemoglobin detection b y automated test stripOrdered By: Oscar Poe on 12-19-2022 Hemoglobin Auto test strip Ql (U) Negative Negative [facility] Urine leukocyte esterase det ection by automated test stripOrdered By: Oscar Poe on 12-19-2022 Leukocyte esterase Auto test strip Ql (U) 2+ Negative [facility] Urobilinogen Auto test strip (U) [Mass/Vol]Ordered By: Oscar Poe on 12-19-2022 Urobilinogen (U) [Mass/Vol] Normal mg/dL Normal [facility] XR knee BI 2Von 12-19-2022 XR knee BI 2V [facility] [place] [address] XRay Report Signed Patient: Zuleika Wyatt MR#: [id number] : 1990 Acct:[id number] Age/Sex: 32 / F ADM Date: 12/19/22 Loc: Room: [address] [place] [address] Type: ADM INOo Attending Dr: Arden Orozco DO Copies to: DO Arden Jefferson DO Ordering Provider: Oscar Poe DO Date of Service: 12/18/22 XR/XR knee BI 2V: f ([id number]) XR/XR chest 1V portable: TRAUMATIC INJURY ([id number]) XR/XR pelvis 1-2V: f ([id number]) XR/XR foot LT 2V: f CLINICAL DATA: [...] Adela Mahan M.D.12/19/2022 10:41 AM Dictation Location: [place] [address] Transcribed By: [facility] 12/19/22 1041 Dictated By: Adela Mahan MD 12/19/22 1036 Signed By: 12/19/22 1041 Normal [facility] pH Auto test strip (U)Ordere d By: Oscar Poe on 12-19-2022 pH (U) 5.5 [pH] 5.0-9.0 [facility] Amylase [Enzymatic activity/ volume] in Serum or PlasmaOrdered By: Oscar Poe on 12-18-2022 Amylase [Catalytic activity/Vol] 35 U/L 29-103 [facility] Aspartate aminotransferase [ Enzymatic activity/volume] in Serum or PlasmaOrdered By: Oscar Poe on 12-18-2022 AST [Catalytic activity/Vol] 26 U/L 13-39 [facility] Basophils Auto (Bld) [#/Vol] Ordered By: Oscar Poe on 12-18-2022 Basophils (Bld) [#/Vol] 0.1 10*3/uL 0.0-0.2 [facility] Basophils/100 WBC Auto (Bld) Ordered By: Oscar Poe on 12-18-2022 Basophils/100 WBC (Bld) 0.7 % . [facility] Carbon dioxide, total [Moles /volume] in Serum or PlasmaOrdered By: Oscar Poe on 12-18-2022 CO2 [Moles/Vol] 20.0 mmol/L 21.0-31.0 [facility] Chloride [Moles/volume] in S gwendolyn or PlasmaOrdered By: Oscar Poe on 12-18-2022 Chloride [Moles/Vol] 105 mmol/L 98-107 [facility] Choriogonadotropin.beta subu nit [Units/volume] in Serum or PlasmaOrdered By: Oscar Poe on 12-18-2022 HCG.beta subunit Qn Negative [facility] Creatine kinase [Enzymatic a ctivity/volume] in Serum or PlasmaOrdered By: Oscar Poe on 12-18-2022 CK [Catalytic activity/Vol] 50 U/L 30-223 [facility] Creatinine [Mass/volume] in Serum or PlasmaOrdered By: Oscar Poe on 12-18-2022 Creatinine [Mass/Vol] 0.84 mg/dL 0.60-1.20 [facility] Eosinophils Auto (Bld) [#/Vo l]Ordered By: Oscar Poe on 12-18-2022 Eosinophils (Bld) [#/Vol] 0.0 10*3/uL 0.0-0.45 [facility] Eosinophils/100 WBC Auto (Bl d)Ordered By: Oscar Poe on 12-18-2022 Eosinophils/100 WBC (Bld) 0.2 % . [facility] Erythrocyte distribution wid th Auto (RBC) [Ratio]Ordered By: Oscar Poe on 12-18-2022 Erythrocyte distribution width (RBC) [Ratio] 14.4 % 11.9-15.3 [facility] Ethanol [Mass/volume] in Ser um or PlasmaOrdered By: Oscar Poe on 12-18-2022 Ethanol [Mass/Vol] mg/dL [facility] Ethanol [Mass/Vol] TNP [facility] Comment on above: Test not performed Glucose [Mass/volume] in Ser um or PlasmaOrdered By: Oscar Poe on 12-18-2022 Glucose [Mass/Vol] 93 mg/dL 70-100 [facility] Comment on above: ADA recommended refe rence rangeRandom Glucose Reference Range is dependent on time and content of last meal. Glucose of more than 200 mg/dL in a nonstressed, ambulatory subject supports the diagnosis of Diabetes Mellitus. Hematocrit Auto (Bld) [Volum e fraction]Ordered By: Oscar Poe on 12-18-2022 Hematocrit (Bld) [Volume fraction] 36.2 % 34.0-46.4 [facility] Hemoglobin [Mass/volume] in BloodOrdered By: Oscar Poe on 12-18-2022 Hemoglobin (Bld) [Mass/Vol] 11.9 g/dL 11.8-15.4 [facility] Leukocytes [#/volume] correc osmel for nucleated erythrocytes in Blood by Automated counOrdered By: Oscar Poe on 12-18-2022 WBC corrected for nucl RBC Auto (Bld) [#/Vol] 10.3 10*3/uL 3.8-11.6 [facility] Lipase [Enzymatic activity/v olume] in Serum or PlasmaOrdered By: Oscar Poe on 12-18-2022 Lipase [Catalytic activity/Vol] 29.0 U/L 11.0-82.0 [facility] Lymphocytes Auto (Bld) [#/Vo l]Ordered By: Oscar Poe on 12-18-2022 Lymphocytes (Bld) [#/Vol] 2.2 10*3/uL 1.00-4.8 [facility] Lymphocytes/100 WBC Auto (Bl d)Ordered By: Oscar Poe on 12-18-2022 Lymphocytes/100 WBC (Bld) 21.8 % . [facility] MCH Auto (RBC) [Entitic mass ]Ordered By: Oscar Poe on 12-18-2022 MCH (RBC) [Entitic mass] 26.9 pg 24.7-34.3 [facility] MCHC Auto (RBC) [Mass/Vol]Or dered By: Oscar Poe on 12-18-2022 MCHC (RBC) [Mass/Vol] 32.8 g/dL 32.0-35.0 [facility] MCV Auto (RBC) [Entitic vol] Ordered By: Oscar Poe on 12-18-2022 MCV (RBC) [Entitic vol] 82.1 fL 80-100 [facility] Monocyte distribution width [Entitic volume] in Blood by AutomatedOrdered By: Oscar Poe on 12-18-2022 Monocyte distribution width Auto (Bld) [Entitic vol] 22.19 % 0.00-20.00 [facility] Comment on above: For adults in ED, MD W > 20.0 may be associated with a higher risk of sepsis during the first 12 hrs of hospital admission Monocytes Auto (Bld) [#/Vol] Ordered By: Oscar Poe on 12-18-2022 Monocytes (Bld) [#/Vol] 0.8 10*3/uL 0.0-0.8 [facility] Monocytes/100 WBC Auto (Bld) Ordered By: Oscar Poe on 12-18-2022 Monocytes/100 WBC (Bld) 7.4 % . [facility] Neutrophils Auto (Bld) [#/Vo l]Ordered By: Oscar Poe on 12-18-2022 Neutrophils (Bld) [#/Vol] 7.2 10*3/uL 1.8-7.7 [facility] Neutrophils/100 WBC Auto (Bl d)Ordered By: Oscar Poe on 12-18-2022 Neutrophils/100 WBC (Bld) 69.9 % . [facility] No Panel InformationOrdered By: Oscar Poe on 12-18-2022 Estimated GFR (CKD-EPI) > 60.0 mL/Min [facility] Creatinine Clearance (Chem 98.76 [facility] Nucleated erythrocytes [Pres ence] in Blood by Automated countOrdered By: Oscar Poe on 12-18-2022 Nucleated RBC Auto Ql (Bld) 0.1 /100{WBC} 0-0.5 [facility] Platelet mean volume Auto (B ld) [Entitic vol]Ordered By: Oscar oPe on 12-18-2022 Platelet mean volume (Bld) [Entitic vol] 8.1 fL 6.3-10.7 [facility] Platelets Auto (Bld) [#/Vol] Ordered By: Oscar Poe on 12-18-2022 Platelets (Bld) [#/Vol] 223 10*3/uL 150-450 [facility] Potassium [Moles/volume] in Serum or PlasmaOrdered By: Oscar Poe on 12-18-2022 Potassium [Moles/Vol] 3.5 mmol/L 3.5-5.1 [facility] RBC Auto (Bld) [#/Vol]Ordere d By: Oscar Poe on 12-18-2022 RBC (Bld) [#/Vol] 4.42 10*6/uL 3.60-5.00 [facility] Serum or plasma anion gap de terminationOrdered By: Oscar Poe on 12-18-2022 Anion gap [Moles/Vol] 14.5 mmol/L 6.0-15.0 [facility] Sodium [Moles/volume] in Ser um or PlasmaOrdered By: Oscar Poe on 12-18-2022 Sodium [Moles/Vol] 136 mmol/L 136-145 [facility] Urea nitrogen [Mass/volume] in Serum or PlasmaOrdered By: Oscar Poe on 12-18-2022 Urea nitrogen [Mass/Vol] 21 mg/dL 7-25 [facility] WBC Auto (Bld) [#/Vol]Ordere d By: Oscar Poe on 12-18-2022 WBC (Bld) [#/Vol] 10.3 10*3/uL 3.8-11.6 [facility] PRBC LEUKOREDUCEDon 07-14-19 23 ABO and Rh group Nom (Bld) Cross Match Result Compatible Unit Blood Type A Pos Unit Number [id number] Status Information Released Specimen Exp Date Product ID Red Blood Cells Product Code [id number] Cross Match Result Compatible Unit Blood Type A Pos Unit Number [id number] Status Information Transfused Product ID Red Blood Cells Product Code [id number] Normal [facility] Comment on above: Performed By: #### R UBIGG #### [facility] [address] [place] [address] Dr. Juan Antonio Ibarra CBC AUTO DIFFon 07-07-2022 BASO # 0.0 103/ul Normal 0.0-0.1 [facility] Comment on above: Performed By: #### A 1C #### [facility] [address] [place] [address] [address] Juan Antonio Ibarra Basophils/100 WBC (Bld) 0.3 % Normal 0.2-2.0 [facility] Comment on above: Performed By: #### A 1C #### [facility] [address] [place] [address] [address] Juan Antonio Ibarra EO # 0.1 103/ul Normal 0.0-0.7 [facility] Comment on above: Performed By: #### A 1C #### [facility] [address] [place] [address] Dr. Juan Antonio Ibarra Eosinophils/100 WBC (Bld) 0.9 % Normal 0.9-7.0 [facility] Comment on above: Performed By: #### A 1C #### [facility] [address] [place] [address] Dr. Juan Antonio Ibarra Erythrocyte distribution width (RBC) [Ratio] 14.5 % Normal 11.0-15.0 [facility] Comment on above: Performed By: #### A 1C #### [facility] [address] [place] [address] Dr. Juan Antonio Ibarra Hematocrit (Bld) [Volume fraction] 22.5 % Critically low 36.0-48.0 [facility] Comment on above: Performed By: #### A 1C #### [facility] [address] [place] [address] Dr. Juan Antonio Ibarra Hemoglobin (Bld) [Mass/Vol] 7.9 g/dL Critically low 12.0-16.0 [facility] Comment on above: Performed By: #### A 1C #### [facility] [address] [place] [address] Dr. Juan Antonio Ibarra IG # 0.10 10e3/ul Critically high 0.00-0.03 [facility] Comment on above: Performed By: #### A 1C #### [facility] [address] [place] [address] Dr. Juan Antonio Ibarra IG % 0.9 % Critically high 0.0-0.5 [facility] Comment on above: Performed By: #### A 1C #### [facility] [address] [place] [address] Dr. Juan Antonio Ibarra LYMPH # 1.6 103/ul Normal 1.2-3.8 [facility] Comment on above: Performed By: #### A 1C #### [facility] [address] [place] [address] Dr. Juan Antonio Ibarra Lymphocytes/100 WBC (Bld) 14.0 % Critically low 20.5-60.0 [facility] Comment on above: Performed By: #### A 1C #### [facility] [address] [place] [address] Dr. Juan Antonio Ibarra MANUAL DIFF REQ NO Normal [facility] Comment on above: Performed By: #### A 1C #### [facility] [address] [place] [address] Dr. Juan Antonio Ibarra MCH (RBC) [Entitic mass] 26.4 pg Critically low 26.7-34.0 [facility] Comment on above: Performed By: #### A 1C #### [facility] [address] [place] [address] Dr. Juan Antonio Ibarra MCHC (RBC) [Mass/Vol] 35.1 g/dL Normal 29.9-35.2 [facility] Comment on above: Performed By: #### A 1C #### [facility] [address] [place] [address] Dr. Juan Antonio Ibarra MCV (RBC) [Entitic vol] 75.3 fL Critically low 81.0-99.0 [facility] Comment on above: Performed By: #### A 1C #### [facility] [address] [place] [address] Dr. Juan Antonio Ibarra MONO # 0.7 103/ul Normal 0.3-0.8 [facility] Comment on above: Performed By: #### A 1C #### [facility] [address] [place] [address] Dr. Juan Antonio Ibarra Monocytes/100 WBC (Bld) 6.2 % Normal 1.7-12.0 [facility] Comment on above: Performed By: #### A 1C #### [facility] [address] [place] [address] Dr. Juan Antonio Ibarra NEUT # 9.1 103/ul Critically high 1.4-6.5 [facility] Comment on above: Performed By: #### A 1C #### [facility] [address] [place] [address] Dr. Juan Antonio Ibarra Neutrophils/100 WBC (Bld) 77.7 % Critically high 43.0-75.0 [facility] Comment on above: Performed By: #### A 1C #### [facility] [address] [place] [address] Dr. Juan Antonio Ibarra Platelet mean volume (Bld) [Entitic vol] 9.2 fL Critically low 9.5-13.5 [facility] Comment on above: Performed By: #### A 1C #### [facility] [address] [place] [address] Dr. Juan Antonio Ibarra PLT 143 103/ul Critically low 150-450 [facility] Comment on above: Performed By: #### A 1C #### [facility] [address] [place] [address] Dr. Juan Antonio Ibarra RBC 2.99 106/ul Critically low 4.20-5.40 [facility] Comment on above: Performed By: #### A 1C #### [facility] [address] [place] [address] Dr. Juan Antonio Ibarra WBC 11.7 103/ul Critically high 4.0-11.0 [facility] Comment on above: Performed By: #### A 1C #### [facility] [address] [place] [address] Dr. Juan Antonio Ibarra CBC AUTO DIFFon 07-06-2022 BASO # 0.0 103/ul Normal 0.0-0.1 [facility] Comment on above: Performed By: #### A 1C #### [facility] [address] [place] [address] Dr. Juan Antonio Ibarra Basophils/100 WBC (Bld) 0.3 % Normal 0.2-2.0 [facility] Comment on above: Performed By: #### A 1C #### [facility] [address] [place] [address] Dr. Juan Antonio Ibarra EO # 0.1 103/ul Normal 0.0-0.7 [facility] Comment on above: Performed By: #### A 1C #### [facility] [address] [place] [address] Dr. Juan Antonio Ibarra Eosinophils/100 WBC (Bld) 0.8 % Critically low 0.9-7.0 [facility] Comment on above: Performed By: #### A 1C #### [facility] [address] [place] [address] Dr. Juan Antonio Ibarra Erythrocyte distribution width (RBC) [Ratio] 14.3 % Normal 11.0-15.0 [facility] Comment on above: Performed By: #### A 1C #### [facility] [address] [place] [address] Dr. Juan Antonio Ibarra Hematocrit (Bld) [Volume fraction] 23.0 % Critically low 36.0-48.0 [facility] Comment on above: Performed By: #### A 1C #### [facility] [address] [place] [address] Dr. Juan Antonio Ibarra Hemoglobin (Bld) [Mass/Vol] 7.5 g/dL Critically low 12.0-16.0 [facility] Comment on above: Performed By: #### A 1C #### [facility] [address] [place] [address] Dr. Juan Antonio Ibarra IG # 0.07 10e3/ul Critically high 0.00-0.03 [facility] Comment on above: Performed By: #### A 1C #### [facility] [address] [place] [address] Dr. Juan Antonio Ibarra IG % 0.6 % Critically high 0.0-0.5 [facility] Comment on above: Performed By: #### A 1C #### [facility] [address] [place] [address] Dr. Juan Antonio Ibarra LYMPH # 2.1 103/ul Normal 1.2-3.8 [facility] Comment on above: Performed By: #### A 1C #### [facility] [address] [place] [address] Dr. Juan Antonio Ibarra Lymphocytes/100 WBC (Bld) 18.8 % Critically low 20.5-60.0 [facility] Comment on above: Performed By: #### A 1C #### [facility] [address] [place] [address] Dr. Juan Antonio Ibarra MANUAL DIFF REQ NO Normal [facility] Comment on above: Performed By: #### A 1C #### [facility] [address] [place] [address] Dr. Juan Antonio Ibarra MCH (RBC) [Entitic mass] 26.0 pg Critically low 26.7-34.0 [facility] Comment on above: Performed By: #### A 1C #### [facility] [address] [place] [address] Dr. Juan Antonio Ibarra MCHC (RBC) [Mass/Vol] 32.6 g/dL Normal 29.9-35.2 [facility] Comment on above: Performed By: #### A 1C #### [facility] [address] [place] [address] Dr. Juan Antonio Ibarra MCV (RBC) [Entitic vol] 79.9 fL Critically low 81.0-99.0 [facility] Comment on above: Performed By: #### A 1C #### [facility] [address] [place] [address] Dr. Juan Antonio Ibarra MONO # 0.7 103/ul Normal 0.3-0.8 [facility] Comment on above: Performed By: #### A 1C #### [facility] [address] [place] [address] Dr. Juan Antonio Ibarra Monocytes/100 WBC (Bld) 6.6 % Normal 1.7-12.0 [facility] Comment on above: Performed By: #### A 1C #### [facility] [address] [place] [address] Dr. Juan Antonio Ibarra NEUT # 8.2 103/ul Critically high 1.4-6.5 [facility] Comment on above: Performed By: #### A 1C #### [facility] [address] [place] [address] Dr. Juan Antonio Ibarra Neutrophils/100 WBC (Bld) 72.9 % Normal 43.0-75.0 [facility] Comment on above: Performed By: #### A 1C #### [facility] [address] [place] [address] Dr. Juan Antonio Ibarra Platelet mean volume (Bld) [Entitic vol] 9.8 fL Normal 9.5-13.5 [facility] Comment on above: Performed By: #### A 1C #### [facility] [address] [place] [address] Dr. Juan Antonio Ibarra PLT 151 103/ul Normal 150-450 [facility] Comment on above: Performed By: #### A 1C #### [facility] [address] [place] [address] Dr. Juan Antonio Ibarra RBC 2.88 106/ul Critically low 4.20-5.40 [facility] Comment on above: Performed By: #### A 1C #### [facility] [address] [place] [address] Dr. Juan Antonio Ibarra WBC 11.3 103/ul Critically high 4.0-11.0 [facility] Comment on above: Performed By: #### A 1C #### [facility] [address] [place] [address] Dr. Juan Antonio Ibarra CBC AUTO DIFFon 07-05-2022 BASO # 0.0 103/ul Normal 0.0-0.1 [facility] Comment on above: Performed By: #### R PRQ #### [facility] [address] [place] [address] Dr. Juan Antonio Ibarra Basophils/100 WBC (Bld) 0.2 % Normal 0.2-2.0 [facility] Comment on above: Performed By: #### R PRQ #### [facility] [address] [place] [address] Dr. Juan Antonio Ibarra EO # 0.0 103/ul Normal 0.0-0.7 [facility] Comment on above: Performed By: #### R PRQ #### [facility] [address] [place] [address] Dr. Juan Antonio Ibarra Eosinophils/100 WBC (Bld) 0.4 % Critically low 0.9-7.0 [facility] Comment on above: Performed By: #### R PRQ #### [facility] [address] [place] [address] Dr. Juan Antonio Ibarra Erythrocyte distribution width (RBC) [Ratio] 14.2 % Normal 11.0-15.0 [facility] Comment on above: Performed By: #### R PRQ #### [facility] [address] [place] [address] Dr. Juan Antonio Ibarra Hematocrit (Bld) [Volume fraction] 31.0 % Critically low 36.0-48.0 [facility] Comment on above: Performed By: #### R PRQ #### [facility] [address] [place] [address] Dr. Juan Antonio Ibarra Hemoglobin (Bld) [Mass/Vol] 10.1 g/dL Critically low 12.0-16.0 [facility] Comment on above: Performed By: #### R PRQ #### [facility] [address] [place] [address] Dr. Juan Antonio Ibarra IG # 0.10 10e3/ul Critically high 0.00-0.03 [facility] Comment on above: Performed By: #### R PRQ #### [facility] [address] [place] [address] Dr. Juan Antonio Ibarra IG % 1.1 % Critically high 0.0-0.5 [facility] Comment on above: Performed By: #### R PRQ #### [facility] [address] [place] [address] Dr. Juan Antonio Ibarra LYMPH # 1.6 103/ul Normal 1.2-3.8 [facility] Comment on above: Performed By: #### R PRQ #### [facility] [address] [place] [address] Dr. Juan Antonio Ibarra Lymphocytes/100 WBC (Bld) 17.5 % Critically low 20.5-60.0 [facility] Comment on above: Performed By: #### R PRQ #### [facility] [address] [place] [address] Dr. Juan Antonio Ibarra MANUAL DIFF REQ NO Normal [facility] Comment on above: Performed By: #### R PRQ #### [facility] [address] [place] [address] Dr. Juan Antonio Ibarra MCH (RBC) [Entitic mass] 25.8 pg Critically low 26.7-34.0 [facility] Comment on above: Performed By: #### R PRQ #### [facility] [address] [place] [address] Dr. Juan Antonio Ibarra MCHC (RBC) [Mass/Vol] 32.6 g/dL Normal 29.9-35.2 [facility] Comment on above: Performed By: #### R PRQ #### [facility] [address] [place] [address] Dr. Juan Antonio Ibarra MCV (RBC) [Entitic vol] 79.3 fL Critically low 81.0-99.0 [facility] Comment on above: Performed By: #### R PRQ #### [facility] [address] [place] [address] Dr. Juan Antonio Ibarra MONO # 0.7 103/ul Normal 0.3-0.8 [facility] Comment on above: Performed By: #### R PRQ #### [facility] [address] [place] [address] Dr. Juan Antonio Ibarra Monocytes/100 WBC (Bld) 8.1 % Normal 1.7-12.0 [facility] Comment on above: Performed By: #### R PRQ #### [facility] [address] [place] [address] Dr. Juan Antonio Ibarra NEUT # 6.7 103/ul Critically high 1.4-6.5 [facility] Comment on above: Performed By: #### R PRQ #### [facility] [address] [place] [address] Dr. Juan Antonio Ibarra Neutrophils/100 WBC (Bld) 72.7 % Normal 43.0-75.0 [facility] Comment on above: Performed By: #### R PRQ #### [facility] [address] [place] [address] Dr. Juan Antonio Ibarra Platelet mean volume (Bld) [Entitic vol] 10.1 fL Normal 9.5-13.5 [facility] Comment on above: Performed By: #### R PRQ #### [facility] [address] [place] [address] Dr. Juan Antonio Ibarra PLT 202 103/ul Normal 150-450 [facility] Comment on above: Performed By: #### R PRQ #### [facility] [address] [place] [address] Dr. Juan Antonio Ibarra RBC 3.91 106/ul Critically low 4.20-5.40 [facility] Comment on above: Performed By: #### R PRQ #### [facility] [address] [place] [address] Dr. Juan Antonio Ibarra WBC 9.2 103/ul Normal 4.0-11.0 [facility] Comment on above: Performed By: #### R PRQ #### [facility] [address] [place] [address] Dr. Juan Antonio Ibarra DRUG SCREEN RAPID (URINE)on 07-05-2022 AMP Negative Normal NEGATIVE [facility] Comment on above: Performed By: #### A 1C #### [facility] [address] [place] [address] Dr. Juan Antonio Ibarra BAR Negative Normal NEGATIVE [facility] Comment on above: Performed By: #### A 1C #### [facility] [address] [place] [address] Dr. Juan Antonio Ibarra BUP Negative Normal NEGATIVE [facility] Comment on above: Performed By: #### A 1C #### [facility] [address] [place] [address] Dr. Juan Antonio Ibarra BZO Negative Normal NEGATIVE [facility] Comment on above: Performed By: #### A 1C #### [facility] [address] [place] [address] Dr. Juan Antonio Ibarra PARAM Negative Normal NEGATIVE [facility] Comment on above: Performed By: #### A 1C #### [facility] [address] [place] [address] Dr. Juan Antonio Ibarra CUT-OFFS SEE BELOW Normal [facility] Comment on above: Result Comment: AMP (Amphetamine): 500ng/mL, BAR (Barbituates): 200 ng/mL, BZO (Benzodiazepines): 150 ng/mL, BUP (Buprenorphine): 10 ng/mL, PARAM (Cocaine): 150 ng/mL, mAMP (Methamphetamine): 500 ng/mL, MTD (Methadone): 200 ng/mL, OPI (Opiates): 100 ng/mL, OXY (Oxycodone): 100 ng/mL, PCP (Phencyclidine): 25 ng/mL, PPX (Propoxyphene): 300 ng/mL, THC (Cannabinoids): 50 ng/mL, TCA (Trycyclic Antidepressants): 300 ng/mL Performed By: #### A 1C #### [facility] [address] [place] [address] Dr. Juan Antonio Ibarra DRUG CUT HEADER DRUG CLASS TEST SYST EM CUT-OFF CONCENTRATIONS ARE FOLLOWS: Normal [facility] Comment on above: Performed By: #### A 1C #### [facility] [address] [place] [address] Dr. Juan Antonio Ibarra mAMP Negative Normal NEGATIVE [facility] Comment on above: Performed By: #### A 1C #### [facility] [address] [place] [address] Dr. Juan Antonio Ibarra MTD Negative Normal NEGATIVE [facility] Comment on above: Performed By: #### A 1C #### [facility] [address] [place] [address] Dr. Juan Antonio Ibarra OPI Negative Normal NEGATIVE [facility] Comment on above: Performed By: #### A 1C #### [facility] [address] [place] [address] Dr. Juan Antonio Ibarra OXY Negative Normal NEGATIVE [facility] Comment on above: Performed By: #### A 1C #### [facility] [address] [place] [address] Dr. Juan Antonio Ibarra PCP Negative Normal NEGATIVE [facility] Comment on above: Performed By: #### A 1C #### [facility] [address] [place] [address] Dr. Juan Antonio Ibarra PPX Negative Normal NEGATIVE [facility] Comment on above: Performed By: #### A 1C #### [facility] [address] [place] [address] Dr. Juan Antonio Ibarra TCA Negative Normal NEGATIVE [facility] Comment on above: Performed By: #### A 1C #### [facility] [address] [place] [address] Dr. Juan Antonio Ibarra THC Negative Normal NEGATIVE [facility] Comment on above: Performed By: #### A 1C #### [facility] [address] [place] [address] Dr. Juan Antonio Ibarra TYPE AND SCREENon 07-05-2022 TYPE AND SCREEN Negative Normal [facility] Comment on above: Performed By: #### T NS #### [facility] [address] [address] [address] Juan Antonio Ibarra US PREG BIOPHY [...] FELECIA GOLDMAN Date: 2022-06-28 15:29 Normal [facility] US PREG BIOPHY W NON [...] by: FELECIA GOLDMAN Date: 2022-06-21 17:20 Normal [facility] US PREG GROWTHon 06-21-2022 US PREG GROWTH [...] GAMALIEL CRUMP Date: 2022-06-21 13:37 Normal [facility] CULTURE URINEon 06-16-2022 CULTURE URINE Culture Observations : LIGHT GROWTH OF MIXED GENITAL ALONSO. NO POTENTIAL PATHOGENS SEEN. Normal [facility] Comment on above: Performed By: #### U RCX #### [facility] [address] [place] [address] Dr. Juan Antonio Ibarra UA (CLEAN/CATCH) SCOW CAPTAIN/MICRO I F IND.on 06-16-2022 Bilirubin Ql (U) Negative Normal NEGATIVE [facility] Comment on above: Performed By: #### U MICRO, UACSIND #### [facility] [address] [place] [address] Dr. Juan Antonio Ibarra Clarity (U) CLEAR Normal CLEAR [facility] Comment on above: Performed By: #### U MICRO, UACSIND #### [facility] [address] [place] [address] Dr. Juan Antonio Ibarra Color (U) LT. YELLOW Normal YELLOW [facility] Comment on above: Performed By: #### U MICRO, UACSIND #### [facility] [address] [place] [address] Dr. Juan Antonio Ibarra Glucose Ql (U) Negative Normal NEGATIVE [facility] Comment on above: Performed By: #### U MICRO, UACSIND #### [facility] [address] [place] [address] Dr. Juan Antonio Ibarra Hemoglobin Ql (U) Negative Normal NEGATIVE [facility] Comment on above: Performed By: #### U MICRO, UACSIND #### [facility] [address] [address] [address] Juan Antonio Ibarra Ketones Ql (U) Negative Normal NEGATIVE [facility] Comment on above: Performed By: #### U MICRO, UACSIND #### [facility] [address] [place] [address] Dr. Juan Antonio Ibarra LEUKOCYTES MODERATE Abnormal NEGATIVE [facility] Comment on above: Performed By: #### U MICRO, UACSIND #### [facility] [address] [address] [address] Juan Antonio Ibarra Nitrite Ql (U) Negative Normal NEGATIVE [facility] Comment on above: Performed By: #### U MICRO, UACSIND #### [facility] [address] [address] [address] Juan Antonio Ibarra pH (U) 6.0 [pH] Normal 5-9 [facility] Comment on above: Performed By: #### U MICRO, UACSIND #### [facility] [address] [place] [address] Dr. Juan Antonio Ibarra SPEC GRAVITY 1.020 Normal 1.005-<=1.0 25 [facility] Comment on above: Performed By: #### U MICRO, UACSIND #### [facility] [address] [address] [address] Juan Antonio Ibarra UA PROTEIN Negative Normal NEGATIVE/ TRACE [facility] Comment on above: Performed By: #### U MICRO, UACSIND #### [facility] [address] [address] [address] Juan Antonio Ibarra UR MICRO IND INDICATED Normal [facility] Comment on above: Performed By: #### U MICRO, UACSIND #### [facility] [address] [address] [address] Juan Antonio Ibarra Urobilinogen Qn (U) 1.0 {Pamela'U}/dL Normal 0.2 - 1. 0 [facility] Comment on above: Performed By: #### U MICRO, UACSIND #### [facility] [address] [place] [address] Dr. Juan Antonio Ibarra URINE MICROSCOPIC ONLYon BACTERIA SMALL Abnormal NONE SEEN [facility] Comment on above: Performed By: #### U MICRO, UACSIND #### [facility] [address] [address] [address] Juan Antonio Ibarra Bacteria identified Cx Nom (U) INDICATED Normal [facility] Comment on above: Performed By: #### U MICRO, UACSIND #### [facility] [address] [place] [address] Dr. Juan Antonio Ibarra CAST NONE SEEN Normal NONE SEEN [facility] Comment on above: Performed By: #### U MICRO, UACSIND #### [facility] [address] [address] [address] Juan Antonio Ibarra Crystals LM Nom (Urine sed) NONE SEEN Normal NONE SEEN [facility] Comment on above: Performed By: #### U MICRO, UACSIND #### [facility] [address] [place] [address] Dr. Juan Antonio Ibarra Epithelial cells LM Ql (Urine sed) RARE Normal NONE SEEN /RARE [facility] Comment on above: Performed By: #### U MICRO, UACSIND #### [facility] [address] [place] [address] Dr. Juan Antonio Ibarra MUCOUS NONE SEEN Normal NONE SEEN [facility] Comment on above: Performed By: #### U MICRO, UACSIND #### [facility] [address] [place] [address] Dr. Juan Antonio Ibarra RBC NONE SEEN Abnormal 0-2 [facility] Comment on above: Performed By: #### U MICRO, UACSIND #### [facility] [address] [place] [address] Dr. Juan Antonio Ibarra WBC 2-5 Abnormal NONE SEEN [facility] Comment on above: Performed By: #### U MICRO, UACSIND #### [facility] [address] [place] [address] Dr. Juan Antonio Ibarra GROUP B STREP CULTUREon - S. agalactiae Ag Ql (Unsp spec) Culture Observations: NEGATIVE FOR GROUP B STREPTOCOCCUS. Normal [facility] Comment on above: Performed By: #### G BSCX #### [facility] [address] [address] [address] Juan Antonio Ibarra PREG BIOPHY W [...] by: GAMALIEL CRUMP Date: 2022-06-14 16:10 Normal [facility] US PREG BIOPHY W NON STRESSo n [...] FELECIA GOLDMAN Date: 2022-06-07 16:42 Normal [facility] US PREG BIOPHY W NON [...] by: FELECIA GOLDMAN Date: 2022-06-04 17:11 Normal [facility] US PREG BIOPHY W NON STRESS EXAMINATION: [...] by: FELECIA GOLDMAN Date: 2022-06-04 16:23 Normal [facility] US PREG BIOPHY W NON STRESSo n [...] by: GAMALIEL CRUMP Date: 2022-05-31 18:39 Normal [facility] US PREG BIOPHY W NON STRESSo n [...] by: FELECIA GOLDMAN Date: 2022-05-24 16:34 Normal [facility] US PREG GROWTHon 05-24-2022 US PREG GROWTH [...] FELECIA GOLDMAN Date: 2022-05-24 16:33 Normal [facility] GLUCOSE - 1HRon 04-04-2022 Glucose [Mass/Vol] 101 mg/dL Normal 74-106 [facility] Comment on above: Performed By: #### R PRQ #### [facility] [address] [address] [address] Juan Antonio Ibarra HEMOGRAM AND PLATELon 2021 Hematocrit (Bld) [Volume fraction] 33.5 % Critically low 36.0-48.0 [facility] Comment on above: Performed By: #### A 1C #### [facility] [address] [address] [address] Juan Antonio Ibarra Hemoglobin (Bld) [Mass/Vol] 10.7 g/dL Critically low 12.0-16.0 [facility] Comment on above: Performed By: #### A 1C #### [facility] [address] [address] [address] Juan Antonio Ibarra MCH (RBC) [Entitic mass] 29.3 pg Normal 26.7-34.0 [facility] Comment on above: Performed By: #### A 1C #### [facility] [address] [address] [address] Juan Antonio Ibarra MCHC (RBC) [Mass/Vol] 31.9 g/dL Normal 29.9-35.2 [facility] Comment on above: Performed By: #### A 1C #### [facility] [address] [place] [address] Dr. Juan Antonio Ibarra MCV (RBC) [Entitic vol] 91.8 fL Normal 81.0-99.0 [facility] Comment on above: Performed By: #### A 1C #### [facility] [address] [place] [address] Dr. Juan Antonio Ibarra PLT 179 103/ul Normal 150-450 [facility] Comment on above: Performed By: #### A 1C #### [facility] [address] [place] [address] Dr. Juan Antonio Ibarra RBC 3.65 106/ul Critically low 4.20-5.40 [facility] Comment on above: Performed By: #### A 1C #### [facility] [address] [place] [address] Dr. Juan Antonio Ibarra WBC 9.9 103/ul Normal 4.0-11.0 [facility] Comment on above: Performed By: #### A 1C #### [facility] [address] [place] [address] Dr. Juan Antonio Ibarra US PREG REEVAL [...] FELECIA GOLDMAN Date: 2022-03-20 20:55 Normal [facility] US PREG ANATOMY SINGLEon US PREG ANATOMY [...] by: FELECIA GOLDMAN Date: 2022-02-22 16:46 Normal [facility] Coding Summaryon 02-14-2022 Coding Summary HTMLBase 64 ErpwnubwNTe0iFk+PGhlYWQ+PE 5ZIFAoU10hgVGdxK7YY0zVSP8C PLMNBVIWKU8SNW7sjLK6OVteW5 VybiAv NhjgtUQhNW37LIt2STP4kKjiXA vcwT1jgCEnN0w7RsQeXV44xH44 CMgyBTWtGsI1GmMpcvzasFQu A5zuDyIuxKOxGqn+PHRhYmxlIH jxBHMhZUmnFUXsXzUjgDowJC1d Uw4vEIZqWAZhbBtyvWXtEjNc v8feXAInWAbeAB3kpSivD2BfeM V1OXRsl9z2Vb45qGR+PHRkIHN0 rFwbGVmzk762PyTmh1exSSW2 oPEpMFdbGZF2P49of1P3NLFpJX SnSTQ5dQB8sI3dgSfofwcvV1Vg wFDiLuZ0BKM0nBWzjR2qsPym uwxtsJ6fXpz+L80GKG7ZMGEAZX 8GCva6I3UcOyzrbKH+KJ57MOSi PI77sYSzlTQpt2nkyTs0RiVr YPRyYQP9fTrcJXgin8UbUMRcU5 7omTNpk2K1NHNtjEdhvFLtZiTr jRO3hI0vRHzhfqizh5pbrmme Kybio5vqzr51mV35R75aDElsGH WsIRB8TZAcKLSchIzolw9ddU0g Ii8+OJqxc2qpe8lgtQk0ZlOr SESwvyIfgSnaFXZ1i1GiOn34L2 AflAamj2YfCfe9xs64wQJut3I0 zKY4CEzxCHXsjU4nCLsjRsC7 IVZxCfYyhX20xMGoSUwjQo1ctH geoPtlGH8kIHLwdkckIHUegD9a ZUGkjDHuzImxLY5aBAWkdvuo s332FbUiYGX5HQWgoUTqF0KbeM 2fEmFyMYWsGUMkJ2OqsSHkPNui A997FIqsTmT9RYXxfsKnX1Xf VSLrgKqvBsS4w6C4Pk2Vf8Ufxx gwIDI7SUbaNIF8OzNsKkHmYtY5 V4WuVrm2WDGsyAktPZ9vL1Pj RADolcljjzheeHR2FTApZWVkbY 84kASxLCxvCd0te0P5o821WHLx IURzcO91Kr3tyZjzFFUuxWXD mA1byryut5gkwfaoPcKjQLAgRB r2BKg7RDCarCgbXjAlQZK0VfY4 HBB5pJOwpF2qnEhihmdwyV1g Oyc+X01uwC3sRFX3YXT5isnxHH WlefMfZS38QK14E9JjOgidxAJh bGU+IVMxitOhsMgwSC7jWxVf e4nni9RrNVfeE0JwIHBxKBwcHc r7FALsXVI3iWT6rU6nTPZrAPcz e5J6cSN5O3QqcfDpbv5if4xm VJImWRhsS06yuGWnb3W2KUPdrX U6RUVaeQtaNqYbtN99Klf+PGNv pYxfe3HmAeovm1cvg3tmlYp5 WrAaPLAwwyZbsPnrVFE9y8HuCg 13N05pWJwvMQPiGKAxBTNeQFXe dNddzz3meJ0cPf4+PGNvbCB3 tPE1rU8rVLJzPyC6SMeoH845Bb XqmKWpXdqsa2hbc1jckRh3GsIe CWGtlgQznMpfRZN1o3RuAc93 A99gDIxbJRUxULAbYPMfQTMsoJ ifvd9pnC2lIz6+AK7hp5hnss33 hH09lBO+MXZuMYE2wKdkNBgj DOOopX8dFYwjIfC2WPHvXbMgxX 94hPYwOQruIh9idTltdIelLX9o RRDnlutju944JzSbd1gaFIUe tTUiIPgxSCF7Q87qe2E3BMRxTA ZxMPN3mYP1wA8dcJcjilqazVJb aPbwpbJvoItxFMopDNnjR404 IHRvcDsnPlBhdGllbnQgTmFtZT p0C7VwTvv9WNRvoBohGI0gaBWb YRhrTg4puLzgtVfkZC2lFLDr furpq823RdAjx6xcZVHnqKSfET vhWFL3T20ex6N1XKTbOFPePGK3 dJZ2yS8eeHlebuzdcPVpfHxg fyEniCpbYHelROwaU155AYYmnT peFdLehfKiICJpuFA1JF04ZW36 mAVor3I7tHB6E7VyRPJpdboe fyysxRI4OQKvCWKiaF31Ps4jgV lwAa2nCVYcDIR6SCCkzMXrN7Qi dE2zJpHxHJKoUVGvC8ZhyPPu QUyfT284SDtwCbE8NOJcqpUeD4 BnYGNqqCbeHvO7e9B2Fx7QM2V4 BX79SI02eFRna9I3qLC7H9Ll IJPaectelwlyhNF4AWDnUOOcnC 79An0nhRirMt4gAWLgKLY4QTUb iJPkZ7EheO6iPfClRGMdIPXq M9HruBKgLJfsX766WIoaAzY6RN PaslSzL5FsDAMjhJmfSpU1o9I9 Zx7PJQb4BQ90BR35iKCxv8T3 sOC2V2PdSCGmdvxprbjmyNN8DR MfXREapV23Wh2mdCceJv0gKDKl GRJ2DMVfcSZyF9WhyW9nZdFf JWWwTVFkI5XmiELkFHqbR132LR fsVbK6WXKpeoYpD4PkQFWzmLxo IvK8s0V4Kr6YLRJrFQ84XDY1 iAO2LI17MD45L4SqYbyhhFRijL U+PHRhYmxlIHdpZHRoPScxMDAl RvIghAqqPL8jKz7nTWUbRISg jPvdnZBpYpWqh0swEQXhVFkuRJ 1ijDiaQ1RwhMJ0BRApd6v0Oe47 S16dN9EchFO+ZAXjrSG7bJE4 xR2kBdZdLcD0GVykE113DaHpeC BjIjeum3die8bohOq8XvW6UMIg yrVdjHcxHNG3r7RjYo66S28m IHdpZHRoPSIxNSUiIHZhbGlnbj 0phD6iUs1+ULWvcHF7sAX5mL9c TaBtSuH8BAscL118QwWcvQTs Kqirl9nsj1kbsIx6MjOrGIUcba UsyBvaGGQ0p7UrCs13E8PfaCbp t8MdZni2sm59lNHyo4B3wLF0 A7DaCNJmyhvqiGIksCgeYS5hIW NuwbguHJThzY8dISEwW5f9PfBi ZqX6YClzR8TibqX5OMOhtKZm ZJzfLJF7Y84yt5O2SHNxCOJmHS R1ySS2yG8sgPtntkgrtLDxnYgi maMirVqmTLnjQEubY437PHVm xTwdEZAwtL5tTWTzpXRwjZaeBS 4wNTBpbjsnPlNURUlOLCBWSVJH GC6WAFTWQDL9F7MySck5UGLo zIddAO0gkSAqNOxoVd4ldAfibA vpUQ1pNNBbwipgNAMddP2sXDSh mHIfoWfpNK0fUTNczcehx329 YsHvTKE3GVLklLNrV8OtuX1rNc XbLIAzKRXdS1LevHXzEIjjJ998 SFvhEsT5HVJxluQmB6VvLBLe aBbvPlZ2r5S1Sh0yJK6iGZ3kHL rqWH26LL97vQHrv5Z7mAF7A3Bj NETiwbqwggnusWZ0GHSvCBIi xH63kGMlMOqaOb5jp0B1r440DQ XtGYMthG63Gp2tvOczBPXwtXMZ tV8lwgjqd6hrfkvmKkTvTTWw YTr4WSr1HBQtwBuqCfHyPXS6Zm S6WPT5yFFlyQ4tgUuhhtcffE2m Oyc+BmkgLWCxtyH4I5ZaQyc7 POEtcLsgJH5cxSLyUXuuOq9dcP cbyUvoLB1oSKZenwhkKJYpwS2r LTHeqYIhgWmfPC5eYZQsgxdf p822RzFjCIG5SDHneUNpL7AjfY 2aNhXaCURkNPRzD1XxoJYmUIcx A115NRkbCeN0THBwbcMgK1Mp TJBbxBmiPfM3f1F2Sx4NJF2COZ D2H2TlRsm4GBBcwLzjKG5tnRTj YBixSn9jnGnkjVkqYN5bIATk cccnHHVqeX1kLBKyoVLwtTspRN 1vKSNgrofpk588MsNaOIH6ISBv xHEpN0XkqE1vJpXtKXWrRXVk Y7HkbHUjFQzdV958FLzpAgK3HN CmqoTaH3SzRUVlmTiuUaT7s3Y2 Pu8GRJgigXQ+CK46no83H7Uh HouzUee4CNSgIKX8fLT7gI5mWD JnCWbok6X0kUG6B8XojxSqnb2c m0tvZEMuEVfcT33seLKop1R0 NNOkbWE8UJXxySzeDmBnyP26Dz c+AOBdqOlgc0NpOkhvd9aki8yu yHu8MwVkMHVpjmEsnOlpBFA0 u3UcSl43C47wXOveEZSrOSKfPE PeZCVhwAjrnh5biB7xUx7+PGNv dQN7lCK7zH7sXdUcMcC5QErf K779MeIdaFUbCjmkj6lbn2wydT c8DsSkXSMqqsMxjKjrOBA0u6Kl Bu24N3PutIozz3MqJtp5zn18 kPMut5S1aUF4J1QfFYBkrbdavU OkbDilXG8fVEMldggiWRJbpG3m TMHdR8n6ZlHsJmX1QBlmS3Cs svQ6RHOpnEFjCXDduQRBeR0ffs zvi5enshqsGqIfTCHhBVq6JUq9 YDIheMfvGuAuMXW4SaD1XLF2 xMSllW1jcEzmaygfyG7aOkt+UG w9z7udfOAxZK3jmMR8EI28IK67 vNXpr5R2nVL2G7EsVHBhbutb bcbvoON9UDAsLWVeaO82Gv9coW cmVa4fWZXbJXW9CQTjrKGxW4Wj zN8nKkQhOPEzAVPdZ9ZnuEUn IBirG896KDwzWcP8DLXvogCwV8 OzKWKklXulDtM0n8L5Xz5OOR11 XT60FF42iDQgs0G0kYH6A6Gg TEUtreojiqnawGR0FAFpYTAanB 49Bw9fjWzwOk0wVAYrSFL5DGLp eMWrG0ZwdR1vEcMnNIJcMNSs B0WexONbJWfrK718EUkpLzW9PS ZxmaRaE0PfKJBicVupBjR3l5H8 Hv1BAv86MC71FB53hXRfg8G2 iEV1G0HsBASpfhhdvqckqQG2OS WkVNOwjW18Dx8qgTheWr7kMIMy RUI1MQShdDRaD4MivI1yUgOa NAKwEXAfM5LbdUMuMOanJ418LF jhOqA1XNTiowDxN4OgMJKxkEzn LyZ9m8W7Sy7QYXfcycr9D4Zx PjwvdHI+FE81VYEmUY89oMFvdT Wgt3jxoDh3FtAgNDFuBYR1xSkc RQzwv7PoHLCnC93tgKZnq7F4 IGN (more content not included)... [facility] Coding Summary HTMLBase 64 MwzkkkjkYNj9dKs+PGhlYWQ+PE 5HENLwH97vqLXycE3ZZ1vQCQ6S TCXLPGPGEY5HQS5fhLO1KWftN3 VybiAv ZfxtgEAbZV76GKx5YBA6eOrgDB ztdY0qoMUgD3l5EjVnXR08tP43 WBliDFZuCaU0RpOmlomybKPq R5xqSwJfcYRrUgz+PHRhYmxlIH fnMITvCXvfDXAxMkNgaAucCN5s Hv9dRGJlPXQjhTsraFUfQjMm i6vxOSAkOEdcKS7xjZdpJ3RdrL I0FLCyg0q3Lg36sYK+PHRkIHN0 lGtgKJbnw606SdNzz2jrMMW4 cPNnOEdoKFK3H78lp2P8AEZcSJ YoVCU6bOD6wO5eePiljsxyW4Vz sMHwXkL0QLP2eGUfrX7ayRru cvzjuR8fZtq+H45BCH0EAEITFO 6TAkm4I2DwIpicgOU+AY11YWJo UV87sYKytVIwn7qnjSw4DbDi CJGoJHT6rMwfYGznw4BuYIYoR5 0wcFXmz3C3VODngIdtmILlPbEw dFQ6oG5qKLmahyapv5mtkfip Ohvnb8cxev84yS31Q61mJWpeEM GyVIR5TDBwYQLneNqlsj3iyY2t Ii8+DIims2wdv9axjLq8DpYj PGGxueIrdJcoJER9v1DlHk16T9 YewUxdu3UcNae5fn42vHKpy6B2 iXC6AYvdGBIciR4wDLdxYbC1 GFZzSpCwgV56pBPkIYefXw2hyD bbvTghRO8eYONxxmxoJCSreT6d RHOobJOdyQdeDD1xPVUpvney m496UdIcOBZ0ONPmgWKsK4DveA 5rOeEgLBWzXZKdW2AstDAlRUua E498HPkyYzN8ENEavgUrG9Vh UXNmqWwbZzS9c0K3Id9Ga5Lcmm ycEFY7MAvwGNN2EgWnGpCqXoM6 N9QyUgn2NCTxhWdnCB6lO4Fb VIIciqyxzeqrfHH5YESwMNGwwA 02bWDmJYioFi0gy1U6u892UDRx FJYmiF04La7yfZflTEQqdRIO rO0zujxsb1ilzqecHiJyEXFuQH z1ENf3FAKxcRjvOxNmCTL5LvI8 XAR6jQLtrT7eaFtixsnjaK0g Oyc+P91ckB2jAJQ9FVM8bhglAC JgnaUzAA17EY70B6VgUphmrGCp bGU+XIJmxuQawXwjCG3nCcQl e2xde1DvOJxaU6QbMNLmCQfuIj z4PWMiHSB9aSS5qT7lBYPiCTys s1T1fNE6U2BaxlXugg9jz4vl NMDnDCuxA51uxGYzn5K2LQKgqN R0IUNflEzcTpUdaR79Esf+PGNv eNfov2FqDhvxi9leu3fouIz0 KpSvMZAxdcAsyMqtHSV1p4HvNi 59H40rOZnmRXCoIMSuTPHyVHOp nQmqfa2mlF9vWl5+PGNvbCB3 kPN7xT4zXVAgChR9WAgsR027Kv JvpVQyYkezj0tgm0ghbJy0UlZf PEUjapCgnPuhSUE1p3PvQv75 P88vNLziBHYyZKFeLZDyBTQdnB msmn1ndS2mDh0+LH7ef5dsdh64 uF30uLT+YMYnJHI2rXfxFOte MSHxyE4jFGrxYjK8CDDrZcVpaW 31yWZfLBhyOr0pkKuyjAvhUW9v BGNoadzqy711UzIvt4tsCQEx lFXsPHxwOCM5R47qt2O8OJBkHD AnSIS2sAP4vQ5jsLynpcncdPQd rGtmdiDnwLhsWOfeFWlxB501 IHRvcDsnPlBhdGllbnQgTmFtZT t5V8GvZkh3DRLbeYwyLM0xhGMa ZRbxNl1anZgluPthLM9bKXQp earrr837WtQrc3udCRTyzFKfCV zfTCZ1V27jy9Z0QFOfGRCiAFI0 aPR4jF9xtSdlfyxtzOLilWnq ayAshOsmJIzcUSyaT904KXZswG xoMaYrumRpZXIhwTE9GM04VG00 xDGna8R1lVB4I7CvDVRwthra zefrxSQ1MZZgQVHhiP74By6ilG lwGz8iSBSoAKW0SYTknQShA4Uu nR9iEpDbNVJnHFOcR6WicCKp SGnuN965THraAhA7VRSuxbXrH6 ExUKOieKjiReB6v8H0Pi6JW2N8 XE63OD63hYGud4V3fPQ3L5Hv STPwprjsnbrgpMS2WZWrYJUygT 27Wr4knRtoUm3vKFToSWV7ATXm vWAiE8HkhY8oYyBwYITnORGa L8RfbPCrIVjuF078NQobAzH7PE BduiFwY6PsCEVssHqbVrZ9p5T8 Xn1VYHj0DZ88NO04uIKeh2O3 gKO5L4QcWVGeseslqpyklCK7PF SzKUKqfP49Hm3ijBiaDp3gNFKe OVG8AZEaaDBvY3IccW1gRfTg KISiEGWlB4VluZZjUPxfY356YL rhFjZ3TKQwxiTgF7MfDZCimAer VuA0z4B7Ki4QPUPnVD33FGZ0 dXI1MC29WU10H1VjKqhbqXHjwP U+PHRhYmxlIHdpZHRoPScxMDAl FrRbyXboRL9hPy9cASKjRWYu vVzrzAIsDnWzz6yhFSDsMUgwXA 9dhXfbA7StgWD4JHXlu7s5Mq83 T73dF7DelEM+MJUlcMB7nCH4 eR6lVtVtMzZ0VHwwH228WyUogN WaErzmo2cqm9fizVf5GgL9EMJh llXczOenGJC9e9NdLn60K65q IHdpZHRoPSIxNSUiIHZhbGlnbj 7jmJ0lJt8+UNZfoDW7xJX7aV6f EqUcXtB9XGsnD159XiNrlUVs Iwmgo5eop0ckaSp3IxFdCSAizt PknMmhPAL1f7JfTy08J1RsjOow m9IhUmq2ir26tZStv1B4bHZ9 C2CvOXQltemptZMsfLjsKE3bMP EamgxvUIRqpR5nAXYzS4k2NsJx DfC9JCscZ5EjrkJ2YMJzpWWd MRtmAGI8E31xx4S9PPZcYNCgDM Q0zUV1cS3xnEonezoxtKHsjBbb iuVpqLigYUdwITflO579VBZe oFdoBLNzcI2dKMPndCIiwBsdVI 4wNTBpbjsnPlNURUlOLCBWSVJH VI2HGAYHBIK1L4ZjJkp8KBJo mGmjIK4qnIQaREncVi9elNmajW fdCT0wMTIkgxcnRCHyiZ3tMSAw wTDkzWwsWJ2aOSWlcsfyu460 WkRhVGE3YBFywLFuA0OgbI6xYs CjRTYuOONnW4WmbBReAWpsA120 PRmlEeJ7KCDrvqXfT6YbJEPe qLyjYuH7i2R5Hw6sBF1sIJ3rOC lbRG59CB61lVCuu2V1xBY5T9Yo DSEqsdvdrpsnhOS8REDsFCNe aI82sMWoZDbvWz3br8B2i093SP UxTSFewE02Nh0ycJuyJYHlaISP jL7gonsgi1qzlrilGhNoIGFo RUf0YSz7GHHluUidSgLhMCS2Fx F5FWF1fWBirO0stWjpvxowsL3j Oyc+KtrxZBVmhrR7J6OjAxk4 MSLasVpsIS8ocOOnQEneZv3pmQ ejyZsrQH5wGHMoqholVSHdnY0z CJDpeBLsrBidQQ8yTYBhzdfk w906AoUmWMX0WWZrrWYxW0FsuI 3vVrRcOCUyTAHkX3SipPYrHWvs D078DPjzTjC4IZMipiDsN2Co JLYssWrxXsU8j4E5Lu0WWJ0XWV D6U7WyArt0RDTqxJhgNG7uwODp INtrUk8xsHlyvHkrGA5tXFOi gtihVLRbpR1gGVGuoCImwXdxQO 4mXQBalfcxm332TtGlATW8YIPz kYVuN9WnhL6yHnMeTDDrPRYt V5PrmCDsCLgdM706PEuxVuX1OY EizoVbY0AcSYFxzGlkGvK6w0Z2 Ja1LwNVnH9YsJ9g6W1JiVtds dHI+DH71VECsEK44eXGskKUrp7 tfrTr0QdWjNPTvKOE9yNikWWag q3NnLWQhN48tcPQsp7Q3USJq oIkyaTWxVgXntPW3zT1sNQouqh rpz0luaeswOycdl0jfpd97lL23 W29dOTcwIQAbTQHrJWZzFNYv aRjcej0nmJ3uUy9+ORHngVT0zF E1aD0rLkXlNkY4PWriR295WsHa fUYcKhyrn1ich8mmoOo6QiJf QHCcqhVinZhfCON7k9ShGl04F1 9sIHdpZHRoPSIyMCUiIHZhbGln oi5tlJ5lBj4+DW3if6awms91 jO30mOB+KJAtFRH2zXthHKgoDC ZmdI8qWCqzWsU3EOWxBaRebQ25 zHClYWbsGj8wjQcqaCxrSY5l ICEexhsni489SrZzm6axQHEbwK PuQWtuSXO2T54gz1T9CROeUECl NON7oHT5rQ0bsGurqlhlwCAt aVfyygGxmAnhPUzaZWulO475WZ SflRtgKsXhjVFbS3psxvGVHZ2m OjwvdGQ+LIAcIAS8dImaOUov MPKktN9iVABwL6v9FaChSbZ1QZ aiA8PwgmE0KIDtoDTbSOEqmXJG kM8wngekm4kokdmeStPwCSZu TJu5HZz2YSVcwSklWwRtZNV1Cb E9SWH4hMPrsV5iaZjvlczgpD5z Oyc+RklOOjwvdGQ+PHRkIHN0 bRerYBneJWTmoA2oCNLrA6q8Yo UqCjK5YQgnM0SwwbE3DLCazIKl YTXlrLTNjO9zsxkkk9kkxzkr UkByWSTrSTs4RFx3UVMhbGyvZd YxHPZ3YmF4WEE9hTDpvT1pfRlo dkvjtX3zByr+TVJOOjwvdGQ+ UWIiIPB3pMcnIArgSEMgwI2dLF TtZ3d1ZpKcNjF5LGorA7GfiaI9 MILlhMWhLQXmpRRXfB3kfscu c4zrplduAyYlHOMhTDi1GXz5MJ HboQbxWhHwJHP3DvV2JIL4nNSo zX9kfXottechbY8eTsp+UGF5 RSR9UI33SS25N7OpEuavuOKlzP U+PHRhYmxlIHdpZHRoPScxMDAl GxUtyIheZR3dCq7dVVSkPKVe bGx (more content not included)... Normal [facility] CHLAMYDIA/GONOCOCCUS RAINER (SW AB/URINE/PAPon 02-09-2022 Chlamydia trachomatis, RAINER Negative Normal Negative [facility] Comment on above: Performed By: #### R PRQ #### [facility] [address] [address] [address] Juan Antonio Ibarra Neisseria gonorrhoeae, RAINER Negative Normal Negative [facility] Comment on above: Performed By: #### R PRQ #### [facility] [address] [place], [place] [address] Dr. Juan Antonio Ibarra AFP MATERNAL FOR SPINA BIFID Aon 02-08-2022 AFP MoM 1.41 Normal [facility] Comment on above: Performed By: #### A FPMAT #### [facility] [address] [address] [address] Juan Antonio Ibarra AFP Value 66.8 ng/mL Normal [facility] Comment on above: Performed By: #### A FPMAT #### [facility] [address] [address] [address] Juan Antonio Ibarra AFP, Serum for Spina Bifida Report Normal [facility] Comment on above: Performed By: #### A FPMAT #### [facility] [address] [address] [address] Juan Antonio Ibarra Comment Comment Normal [facility] Comment on above: Result Comment: Melchor Chaudhary, Ph.D., [facility] Director . References: Available Upon Request. . Multiples Of Median Cutoffs For AFP Elevations Briscoe 2.5 Black 2.8 IDD 2.0 Twins 4.5 Abbreviation Definitions IDD - Insulin Dep Diabetes OSBR - Open Spina Bifida Risk . For further inquiries contact [employer] [employer] [facility] at [phone]. . This test was developed and its performance characteristics determined by [employer]. It has not been cleared or approved by the Food and Drug Administration. Performed By: #### A FPMAT #### [facility] [address] [address] [address] Juan Antonio Ren Age Collection Date 18.3 weeks Normal [facility] Comment on above: Performed By: #### A FPMAT #### [facility] [id number] Juan Antonio Ibarra Gestat, Age Based on LMP Normal [facility] Comment on above: Result Comment: Reca lculations are not recommended when gestational dating by LMP and ultrasound are within 10 days. Performed By: #### A FPMAT #### [facility] [address] [place] [address] Dr. Juan Antonio Ibarra Insulin Dep Diabetes No Normal [facility] Comment on above: Performed By: #### A FPMAT #### [facility] [address] [place] [address] Dr. Juan Antonio Ibarra Interpretation Comment Normal [facility] Comment on above: Result Comment: Inte rpretation: [...] Customer Services to discuss available options. The [employer] recommends amniocentesis be offered to women age 35 and older. Performed By: #### A FPMAT #### [facility] [address] [place] [address] Dr. Juan Antonio Ibarra [age] [facility] Comment on above: Performed By: #### A FPMAT #### [facility] [address] [place] [address] Dr. Juan Antonio Ibarra Multiple Gestation No Normal [facility] Comment on above: Performed By: #### A FPMAT #### [facility] [address] [place] [address] Dr. Juan Antonio Ibarra OSBR Risk 1 IN 3501 [facility] Comment on above: Performed By: #### A FPMAT #### [facility] [address] [place] [address] Dr. Juan Antonio Ibarra PDF . Normal [facility] Comment on above: Performed By: #### A FPMAT #### [facility] [address] [place] [address] Dr. Juan Antonio Ibarra Race Normal [facility] Comment on above: Performed By: #### A FPMAT #### [facility] [address] [address] [address] Juan Antonio Ibarra Test Results: Negative Normal [facility] Comment on above: Performed By: #### A FPMAT #### [facility] [address] [address] [address] Juan Antonio Ibarra VAGINITIS/VAGINOSIS DNA PROB Abdirashid 02-08-2022 Bettye species Negative Normal Negative [facility] Comment on above: Performed By: #### A 1C #### [facility] [address] [address] [address] Juan Antonio Ibarra Gardnerella vaginalis Negative Normal Negative [facility] Comment on above: Performed By: #### A 1C #### [facility] [address] [place] [address] Dr. Juan Antonio Ibarra Trichomonas vaginalis Negative Normal Negative [facility] Comment on above: Performed By: #### A 1C #### [facility] [address] [address] [address] Juan Antonio Ibarra ABO and Rh group post transf usion reaction Nom (Bld)Ordered By: Eleazar Hess on 02-06-2022 Microscopic observation Gram stain Nom (Unsp spec) [facility] ED Clinical Summaryon 2021 ED Clinical Summary [facility] Emergency Department [address] [place], [place] [id number] ED Clinical Summary PERSON INFORMATION Name: ZULEIKA WYATT Age: 31 Years Sex: FEMALE : 1990 MRN: Acct#: Visit Reason: Rash; Medical problem - minor; POSS BODY INFECTION Arrival: 01/29/2022 20:27:46 Discharge: 01/29/2022 21:17:00 LOS: 000 00:50 Check In: 01/29/2022 20:27:46 Checkout:01/29/2022 21:17:00 Address: [address] [place] [address] [address] [place] [address] PCP: Andie Stoddard PROVIDER INFORMATION Provider Role [...] follow-up with their family doctor or their HIGHWAY SAFETY ENGINEER doctor. To this they agreed.. Health Status [...] Use: Current Fr (more content not included)... [facility] ED Note - Physicianon 2021 ED Note [...] follow-up with their family doctor or their HIGHWAY SAFETY ENGINEER doctor. To this they agreed.. Health Status [...] Once. Impression and Plan Diagnosis Sebaceous cyst (BEB70-KC L72.3, Discharge, Medical) Plan Condition: Unchanged. Disposition: Discharged: time 01/29/2022 20:59:00. Prescriptions: Launch prescripti (more content not included)... Normal [facility] ED Patient Summaryon 022 ED Patient Summary [facility] - Emergency Department [address] [place] [address] PATIENT DISCHARGE INSTRUCTIONS Patient Information Name: ZULEIKA WYATT Age: 31 Years Date of : 1990 Reason For Visit: Rash; Medical problem - minor; POSS BODY INFECTION Arrival Time: 01/29/2022 20:27:46 Primary Care Physician: Andie Stoddard Attending Physician: Johnson Wright DO Comment: Visit Diagnosis: Diagnoses This Visit Medical problem - minor ([id number]) Rash ([id number]) Sebaceous cyst (L72.3) The Pharmacy at [facility] is open Saturday through Saturday from 9A [...] alcohol and/or drug addiction problems; contact the [facility] 07/01 Crisis Hotline -Text 1CWTF [place] [id number]. If you received any narcotics, sedation, or [...] legal documents With: Address: When: Andie Wyatt [address] [place] [address] Business (1) Within 3 to 5 days Comments: home warm compresses clindamycin for antibioitic see your ob, or Dr Wyatt, for recheck apt ----at some point, this might have to be removed; this is not cancer, but a retention cyst of fat material; Return if very red and tender, or fever, vomiting worse You are welcomed to return anytime. Call Dr Wright, ext [phone], if any question patric WRIGHT< ER PHYSICIAN< H [facility] Medication Information: The exam and treatment you received today in the [facility] Emergency Department were for an urgent problem and are not intended as complete care. It is important for you to follow up with a doctor, nurse practitioner, or physician?s hospital aides and assistants teacher for ongoing care. If your symptoms become [...] so we can reach you if necessary. [facility] Emergency Department has provided you with a complete list of medications post discharge. Please inform your primary montessori teacher/provider of your visit and for further instruction [...] Epidermoid Cyst (more content not included)... Normal [facility] TYPE AND SCREENon 12-30-2021 TYPE AND SCREEN Antibody Screen [facility] Blood Bank Notes performed by CV on 12/26/2021 ABO Rh Typing A Rh Positive Blood Bank Notes performed by CV on 12/26/2021 Normal [facility] Comment on above: Performed By: #### R UBIGG #### [facility] [address] [place] [address] Dr. Juan Antonio Ibarra HEP B SURFACE ANTIGEN SCREEN on 12-28-2021 HBsAg Screen Negative Normal Negative [facility] Comment on above: Performed By: #### H BSANS #### [facility] [address] [place] [address] Dr. Juan Antonio Ibarra HEPATITIS C VIRUS AB W/ REFL EX QUANTon 12-28-2021 HCV AB 0.2 s/co ratio Normal 0.0-0.9 [facility] Comment on above: Performed By: #### A 1C #### [facility] [address] [place] [address] Dr. Juan Antonio Ibarra Interpretation: Comment Normal [facility] Comment on above: Result Comment: Nega tive Not infected with HCV, unless recent infection is suspected or other evidence exists to indicate HCV infection. Performed By: #### A 1C #### [facility] [address] [place] [address] Dr. Juan Antonio Ibarra HIV 1 AND 2 WITH REFLEXon HIV Screen 4th Generation wRfx Non-Reactive Normal Non Reactive [facility] Comment on above: Result Comment: HIV Negative HIV-1/HIV-2 antibodies and HIV-1 p24 antigen were NOT detected. There is no laboratory evidence of HIV infection. Performed By: #### R UBIGG #### [facility] [address] [place] [address] Dr. Juan Antonio Ibarra RPR QUANTon 12-28-2021 Rapid Plasma Reagin, Quant Non-Reactive Normal NonRea<1:1 [facility] Comment on above: Result Comment: Plea se Note: This test does not meet current guidelines for screening and diagnosis of syphilis. This test is intended for following treatment response in patients being treated for syphilis infection. To screen for syphilis infection, a reflex cascade that includes both RPR and a treponema-specific assay should be utilized, such as Treponema pallidum (Syphilis) Screening [place] ([id number]) or Rapid Plasma Reagin (RPR) Test With Reflex to Quantitative RPR and Confirmatory Treponema pallidum Antibodies (775192). Performed By: #### R PRQ #### [facility] [address] [place] [address] Dr. Juan Antonio Ibarra RUBELLA AB IGGon 12-28-2021 Rubella Antibodies, IgG 3.48 index Normal Immune >0.99 [facility] Comment on above: Result Comment: Non- immune <0.90 Equivocal 0.90 - 0.99 Immune >0.99 Performed By: #### R UBIGG #### [facility] [address] [place] [address] Dr. Juan Antonio Ibarra CBC AUTO DIFFon 12-26-2021 BASO # 0.0 103/ul Normal 0.0-0.1 [facility] Comment on above: Performed By: #### A 1C #### [facility] [address] [place] [address] Dr. Juan Antonio Ibarra Basophils/100 WBC (Bld) 0.3 % Normal 0.2-2.0 [facility] Comment on above: Performed By: #### A 1C #### [facility] [address] [place] [address] Dr. Juan Antonio Ibarra EO # 0.0 103/ul Normal 0.0-0.7 [facility] Comment on above: Performed By: #### A 1C #### [facility] [address] [place] [address] Dr. Juan Antonio Ibarra Eosinophils/100 WBC (Bld) 0.4 % Critically low 0.9-7.0 [facility] Comment on above: Performed By: #### A 1C #### [facility] [address] [place] [address] Dr. Juan Antonio Ibarra Erythrocyte distribution width (RBC) [Ratio] 13.5 % Normal 11.0-15.0 [facility] Comment on above: Performed By: #### A 1C #### [facility] [address] [place] [address] Dr. Juan Antonio Ibarra Hematocrit (Bld) [Volume fraction] 38.9 % Normal 36.0-48.0 [facility] Comment on above: Performed By: #### A 1C #### [facility] [address] [place] [address] Dr. Juan Antonio Ibarra Hemoglobin (Bld) [Mass/Vol] 12.9 g/dL Normal 12.0-16.0 [facility] Comment on above: Performed By: #### A 1C #### [facility] [address] [place] [address] Dr. Juan Antonio Ibarra IG # 0.03 10e3/ul Normal 0.00-0.03 [facility] Comment on above: Performed By: #### A 1C #### [facility] [address] [place] [address] Dr. Juan Antonio Ibarra IG % 0.3 % Normal 0.0-0.5 [facility] Comment on above: Performed By: #### A 1C #### [facility] [address] [place] [address] Dr. Juan Antonio Ibarra LYMPH # 1.4 103/ul Normal 1.2-3.8 [facility] Comment on above: Performed By: #### A 1C #### [facility] [address] [place] [address] Dr. Juan Antonio Ibarra Lymphocytes/100 WBC (Bld) 14.5 % Critically low 20.5-60.0 [facility] Comment on above: Performed By: #### A 1C #### [facility] [address] [place] [address] Dr. Juan Antonio Ibarra MANUAL DIFF REQ NO Normal [facility] Comment on above: Performed By: #### A 1C #### [facility] [address] [place] [address] Dr. Juan Antonio Ibarra MCH (RBC) [Entitic mass] 29.6 pg Normal 26.7-34.0 [facility] Comment on above: Performed By: #### A 1C #### [facility] [address] [place] [address] Dr. Juan Antonio Ibarra MCHC (RBC) [Mass/Vol] 33.2 g/dL Normal 29.9-35.2 [facility] Comment on above: Performed By: #### A 1C #### [facility] [address] [place] [address] Dr. Juan Antonio Ibarra MCV (RBC) [Entitic vol] 89.2 fL Normal 81.0-99.0 [facility] Comment on above: Performed By: #### A 1C #### [facility] [address] [place] [address] Dr. Juan Antonio Ibarra MONO # 0.5 103/ul Normal 0.3-0.8 [facility] Comment on above: Performed By: #### A 1C #### [facility] [address] [place] [address] Dr. Juan Antonio Ibarra Monocytes/100 WBC (Bld) 4.6 % Normal 1.7-12.0 [facility] Comment on above: Performed By: #### A 1C #### [facility] [address] [place] [address] Dr. Juan Antonio Ibarra NEUT # 7.7 103/ul Critically high 1.4-6.5 [facility] Comment on above: Performed By: #### A 1C #### [facility] [address] [address] [address] Juan Antonio Ibarra Neutrophils/100 WBC (Bld) 79.9 % Critically high 43.0-75.0 [facility] Comment on above: Performed By: #### A 1C #### [facility] [address] [place] [address] Dr. Juan Antonio Ibarra Platelet mean volume (Bld) [Entitic vol] 10.0 fL Normal 9.5-13.5 [facility] Comment on above: Performed By: #### A 1C #### [facility] [address] [place] [address] Dr. Juan Antonio Ibarra PLT 194 103/ul Normal 150-450 [facility] Comment on above: Performed By: #### A 1C #### [facility] [address] [place] [address] Dr. Juan Antonio Ibarra RBC 4.36 106/ul Normal 4.20-5.40 [facility] Comment on above: Performed By: #### A 1C #### [facility] [address] [place] [address] Dr. Juan Antonio Ibarra WBC 9.7 103/ul Normal 4.0-11.0 [facility] Comment on above: Performed By: #### A 1C #### [facility] [address] [place] [address] Dr. Juan Antonio Ibarra CULTURE URINEon 12-26-2021 CULTURE URINE Culture Observations : LIGHT GROWTH OF MIXED GENITAL ALONSO. NO POTENTIAL PATHOGENS SEEN. Normal [facility] Comment on above: Performed By: #### R UBIGG #### [facility] [address] [place] [address] Dr. Juan Antonio Ibarra GLYCOHEMOGLOBIN A1Con 2021 ADA RECOMMENDATION SEE BELOW Normal [facility] Comment on above: Result Comment: ADA RECOMMENDED LIMIT 4.0 - 6.0 ADA THERAPEUTIC TARGET < 7.0 ACTION SUGGESTED > 7.0 Performed By: #### A 1C #### [facility] [address] [place] [address] Dr. Juan Antonio Ibarra Glucose [Mass/Vol] 114 mg/dL Normal [facility] Comment on above: Performed By: #### A 1C #### [facility] [address] [place], [place] [address] Dr. Juan Antonio Ibarra HbA1c (Bld) [Mass fraction] 5.6 % Normal 4.5-6.2 [facility] Comment on above: Performed By: #### A 1C #### [facility] [address] [place], [place] [address] Dr. Juan Antonio Ibarra US PREG TVon [...] FELECIA GOLDMAN Date: 2021-12-07 16:59 Normal [facility] Coding Summaryon 11-21-2021 Coding Summary HTMLBase 64 PvdbllmgBEk9pFd+PGhlYWQ+PE 3HTVVkP31zgERnzA8YZ9eOVE2N QQUIYSCZOL8TMR4yaLS3KFbfI0 VybiAv TgztoAHlMD44XAi1AIY9sNflFI qmxF1gvJFkW2l5PuOxXN75oB56 PRiiZCSnOwW1HdLydjfssYPt U0hcYnYwlQRyKen+PHRhYmxlIH jtGAJzCEvgNPOvLmXkjAdzUI7i Yb8aZIXzKFNwgRqsaKKvPvUd z5cdROYpXJeiPK8mhTwiL0YtqR L8TWJzo3r4Vj19zOA+PHRkIHN0 iLivEOumb626FuJki6kpMGU1 wLIzCPhmMNQ4O81pt1P5UJXrWA NqOYN4aQC0zO9iyHqziqdtO7Rg wVPdVrA7BCI9zMBlmX9boUtl sgzrpK1cTpg+R46VKZ5QFYFNRU 1FWqf4A1XzFmvmsQM+BF98SHLo QY16hVHlzBNju9wsdGq2JgZz PZOvPIS2lSjdRYllj8SdGRHsP8 1obKFwy6Z4PNDkgWnspGAnXeJk pMW8bW4lOQmhagawv1cluzkm Bgqjc3mhgz66cS01Q13dFDjiRS AhBDO8VEUbJFJynNfscx4izL9m Ii8+LAdob2cbi6kcySw9WkRq RBRnedXazTxnDBV7x1UoNk09T9 BfzPqfa9NqJgn5fo62bHXiv7V5 iCK0HZddDMUthC1dATxwAsN0 NMYwNkGysH71nMEnRDxkRb1dzZ fhgXzlCU6gXQPlvewbZAAeiP8z VOTqoFYytBxhSB4jOKFjcakh b781GpXbOKN4ICYmoBEyY9XtpZ 1yMlJiLBIiBOKwY2AntNPdGCnv I856LHsrUhO3EOEwmoVrD3Wd JFOhcAklIcX5z0T2Og5Jw1Bxeb vxGUU3VIiwWMC2JvB9RjNyCwZ0 P6RyKge7HVSsiQuiTW4bL4Ga VPPnluggbhtzsCD9KMNkGUQqoL 29bTZsUIfsVs8hd6H1d823QWQn BKKqaZ69Gv9zgYdpHZEvaRZK hX5eqqcdf8hcxfwsPbBgRZSlJB e1ECr7EXFcfByfNrKjJKF8ItV7 SNX6mHJcjX6wwQlfmxvvyX9z Oyc+T60hsT5mIFQ7WAW4eufqUR QiegGaBH99DA48B7OxCjuufQVg bGU+KDKoetKgfVfiBX3cPiGj w9new5UvNImnJ6KuYTGdDJevRu c3GIKbNQB8qIN1uH1xKRMiIQxg k9M0aIU3B3VdtlPwym6ra1nd WFZiAYvoC48viCJsq8B2ZZSxaN W5HEVcmDjpUcPphN62Urf+PGNv pDoom8BxHjlcr3zmb4jjmCi8 UbEmCLFgznUrwTivPNR9c8QzZl 82T85xRKyhNTTaVYQdYMJvUQMb oOtcma8giV3dJz2+PGNvbCB3 dBX0fU1zCYVuYgY1TQybJ543Gi ChqUTlQwznc1fjb6otyIb3OfUn AYJbixWaxIfuROP8m9NkGt09 P94sIDprOIGbUARxORPvBLAfiS nfug8ktR3dOw9+SL8cb3fylf30 rV69oJU+TSLnQTW6kYpwPIoj YOYktC2iRCkdHqM3PKGjDqKwcU 05wKLgZQxvFi9cfLtouRpxGW2d KVUqrlqjp986VbOdn0oxYIUk dJErINrfLJI1M81rv5X4KMYvTB EqFVR3qJT2dE0wcFiufqrcwHPc qSuxzjKtdFkkULsyRXvfX705 IHRvcDsnPlBhdGllbnQgTmFtZT h9R0IqDtp7BRDolIupLS8zbHYc VZsoQb0fjLxosAakBH5aWUFp rdwjn913GgFme1vhREAxwTMoFV isEPA4R66ai6P1QIHjMENbNED5 tMS7zJ1dlNjykrqgmWHagMfx wiMrbIorQZyqDRoeF815FYOlzI rhEjAsymDhIJUliJB4VN51FB14 sAIvv7X0yMQ1E5EcDWYrshln zkiykBR8ALDdPCSpuZ14Co7mnB roSo5mIXUsIAM6SSGwvANmA6Ge jY0cRkFfJKPjZGKkG1KgoWQs STlhI295QPjhEqA0OWOtnkPcS2 KhBXNdmYosUyY4k4S6Xc0DP4S1 XR49UO85yFGzr9W7eOP4J7We IJNkgwcsqlriaCP2PJFaVHFqfM 32Nv7znKqkMn3eKMRyJNC9LAAk xPCwS3TeuK5fWxCgHBUxVYTe E6PlsDWpPBagG035EMdrShE8IQ SjrfEvY0PiQKAujJuaDrV8t3O0 Nr6WXTg6LZ67YB90aAPke5A4 jDH5Y6VgOBGsnkluobvoxQW4OI PxOBOxqS35Bn3mqVagLh2mVGHu LYB7VEVueSNcE7SyxB6tWsQp JEJvAFJtL9ZsyLQsGIfpE586FM whRzC2JQDguxKmI8SvVQFjzLqs RyI7o4S0Ax2CTAJqUR03RAQ7 kPZ1CX97FR33G7MbTezwlQZtuE U+PHRhYmxlIHdpZHRoPScxMDAl ZqHblKadIN1pUc2vFGCtRJTa dZmzeIIfZjHyk7eyZHStPMzwJY 9gdTipK0DhzUQ6KVBab8v2Ca80 A61fM0PvcIM+MICafEU7wRK5 uK4zQuVuKlT0HNenR659XzWnnK MbLbzis6bgw5sirCq2GlC2YSOf abRmkVbxGAW3m7EvSj28G04n IHdpZHRoPSIxNSUiIHZhbGlnbj 0uxI3kJx5+QCMunIF4yEN7nS1s NqPqIxU8IYimM084YrBptGOo Whsme6icp4nzfLe8TqGyVKLkwv NgdAupVFD8k7GdBo06S2WmrCmo f9WaGca3mv70mXCzk8F2fXP0 T6FzERGpihyqsVVrwMdhXC1mSE RthawpAXJteO7bIMSsI8t6PbYp KjF5LZljU4OcchS0LQGadSLb PJcjKOI3F80wz4E9ZNInASXfIZ Z4sRW6uU5loQjycvruyDXxeTtf leLngZukVLcmWWdrT420OFIv sJenOBOxtA2gOZBnvYKebTmeMR 4wNTBpbjsnPlNURUlOLCBWSVJH QB2CJTHEFLZ7B5FlJhb3IBXs mXtdQF2lxLBcWHpdXl4zoGyanB rmZV7qEDJnsijsCXSiuM4xFMNb sNKdoCtkHJ2xWBKbuufhr419 SgIpDPB9BQYtwJEiB7RsoT2pMh GqBUYcMMXtZ3MtfCSbGNzlX935 QHdbIxD3BTEtvkUyZ2AyCIIz cOkbMmS8d4D0Oy1iCF3gRJ9wDO yaLA33HI47dLEno0G9lGO8L2Lq BXDbtjpriepuxJL8HNSaLKJx qX07vUIvNUeeWi1mm7J8z603CF ZzKFOlsJ87Cg7cgEajAECocYOG qA5ctferb8vuagraZuMrHKAf SYf3PSs9FRGdqMowTmTkGCA0Xc D9XNH3cFBynM7guQsulmtgtV8h Oyc+AqknSHSikjZ6Y0DwRqb6 IWOokHmfUP3jjBXcYShoEo5jqN jocDnxYF3vYBXzsmcnOEVpzY8x LNAycUTcgOqsWZ1iASUmyllj a930UdKvUVP9ARKskRLmC0EedV 5jCdGsBIUoDQGnW9BmqXHaMBth D042ARovUbZ3WXJljxKeA8Xn URMnsVbfIgA0y5Q1Sb6BPB3CGQ Z5O1ZvNkj9GIMwlZvlYY0rgLIq GAubAe4hjXtljNnlMU8aMVXo efttIQIqmK5zYHGkpKUxzTrvSK 2qJPTfnsnfn684MzWpWFA2LWGh kXMvE9AvbA3dUkVeZGGyDCNa C1FovWTnWUxhI502WIfbAcS0SV DiqaTnB4YgXVRpbMouNiH8g0C1 Xl2FCTcorAW+WA69gq58N7Uz CsizFih4HYZmSJK2uBW8tG1yVO CjWZada5Q0tCL9H9WkpwHsmg6f w6kjIWJaZBotI31pbJVwm6L9 YRUefJG3ZNLdsQduVkAgvZ79Eb c+AQRryZddl9FhRqhew1kwy9fi vHo6VnIaERWsulJjmAutHRY9 k1ZqAy08T87gTAubFQThHEVpSO RiTSYvnBpzev5pzB9lZg6+PGNv mOE7rFP5rE1eUhOtUfC0WGmc H704DbZqvOVxJvsin5fuo0sulH t2ZqLzYZMcacQptVsrHSL2l4Ag Su43B9PokUrzp0AjAgm4ch29 bLOxg5O3hFH1S5WxMVElogrecP HbaNmlYC8dYZKcscfvIDGvwB7x OTWvN7n3SxVjDrE6IBdxH6Un fmM2DNKjlRKzDYEagWJKjP9sqe wuh2uvmznoGgVyWJBzXMs0DEv2 YATosNzgIuGcGPB9NpG3TEX7 wXTyyU8krAhrqxwytJ2kPqa+UG y9d5xwoFMyNH9suQQ0PF34RB10 iHHnc7V5yGM8X4OkWPQikltv jkyzzOY3BHJvKJHuxH36Wf5qbP zqLj6jETFhPKQ9DNKrvCAdI4Tj qH9xOmEqSXDsGQNoT1CacCCz VLcvP191NUipSuP1NNRxrnUpD6 ZgIRWhwWfxLlX8q5G4Wd9NII67 QF83DA34iCAxg1W6dZH4F5Tl ZUIovsizkpjtlCN8MOLfVQPabK 40Rz4ygFmpBo2sMWNjEZQ8YVOe uOFsD0YizC8bBjSeCUJgHDXq S8JhfYMiSCpdG727LXtqRjY4GK UydpNrF8NjPYLtwVofFwD6b9V8 Em0VQh34IX01XL11gIZro8U5 iMG3Z5HiOKArmerzvwfssER0QP SqOBErkS12Gi8mxCglBp9eGCGf USV1CHGobFLnS1RyxG1hUdEe DUBjWKXiK3HpeLRtVYawN972BM rmOnN0UOLkopVqL9BdXHVlzDgt FbJ6c9X6Zk2XDXeipmk1H3Yp PjwvdHI+BJ80UDMdWR84iUHvyU Vun5oluGs0PjKqZFOqSGP5zOoo VHvcb3QmRUIvW41ymFWmg2X3 IGN (more content not included)... [facility] Coding Summary HTMLBase 64 SbtnthkjZEe3eOq+PGhlYWQ+PE 0QISEfK42jjEXrtX2IQ6cPTN5N SXTBDNUZSN3SES1lbUU1GVonW5 VybiAv ArnbyYNdKV32BUo2YCS6qJqxSH udfI2yfXFyU2h7MgLgAS37yH69 MZayGZNuRnP2KpIerishpJMk P4gqBoJooUDeQkw+PHRhYmxlIH duNQWkPSrpQCKmQlQwpDwtDB9u Zf2uJDEtXZWioCtdvRObIrBb s7wpDBPfBZfdDQ8mlSgoA7HavP W2CRQon0w0Qy32rIG+PHRkIHN0 hNbiBDsuf605LrSls0mdSKB0 pHPcQZcgXVS9M87hv4D8TKOpTP SnVRT3oVR7pG6zyCpvrrvuM0Lu bGYiFuN5GHR5pYMmsP9jnEhq dpwsnT5qQpy+Q58LSH6MGIRPAV 3TWmi7S3CuNqrjcRC+GE76CKTf OP83fEFzyNRoc4ojhDb1QhCq IWEyQXZ4nFerYUzlh6QnLLZzZ8 9vvVWsi1C3RFBleBintDNxMfRi uWJ0sA7hYGfidqvdu8fctrft Hxvlj1aiov82mU14V90yTAhoUO WyJXN3WYSuAXYhrGgvqf1axM3f Ii8+WDipv5ist6owqDw7ZfMv FTNzvoSqrRnvVWS8a6AcJo24A9 AglXawu1MuWzo5hl17bVXye1E0 cDK7ZRqbNDTnrP0fWOkkVyP6 LOStOpLrcJ09nEEaAFzyJe1crL vhxQhtNM0aEXQckzpnITAknF4j WLAhbZEkqCtuVY6gPWPzjotu h169TsVwNVE4KQQfdTEiM3BitY 5sVwJnLVFoVAMjL9CwzVNcLSwd O700MLpcTsD9OPOjedKqC6Pn YNYxmQuwJsY4z9J4As1Em4Kkdn vgXEH1IDrjTLU6GgM4IqHfZzQ3 K9BuBtr3HLJewLjlNT5dG4Sm HTCdavegainziOB4XSWuEGYlfQ 18fNKoPYilCe0pg6R9n992GYIa CTFdsE47Yb2juBweLKXwyZMU wG4fqxndr0lbfaguXqRwUOTdRP v2UEk4VEUqdBbbAwWfKHC9GvO6 TWZ7cWWwsZ7jvIlbizlqyI7b Oyc+R31ykZ4fRPI7AUP1ynvgLU XpmhFqYQ02US59O5IvXmxdvDBs bGU+TTDefcMhpXksCK5vSoBj o2tqu9ByEIrsB4KkCJQlVIluHg v0VSWbIQG3tHQ4hG3wUREvJEqp d2G6hVC2T5KoxtKswu7kg3ur ULBqDVlcX28snJImu4Q0YVRyfL T2YRObeJcnArZcbC89Rro+PGNv eBclo8KgCuntt2knf5isbGp5 MqPdOGWjzxBszIrjMJM7f6GjCa 60V93jEXhmEQFhLCMkYZTjCWOc cPzmfv2rxW8lQd4+PGNvbCB3 cTU8lE7uTFSmBaD4RGxcQ812Jk XptKGhGalib9zdg3bvrUz2AsGw RLBkdnAlzUfeOQJ9i9TfFt63 Y07cDUieKVGpSONqFYIvHNLpfU sufy0ctK2uNp6+HB7ku9cbrv83 cS60mYX+NZSgPWN8gMjaCGtm LBRozF9iIOjtPbT8YTOoNaHynO 52wUSdFApfKt4mqNdjaZlsVV8n UVWrvglem092ZhLle9dgVQDe lQCtBMmlJUX9P60fa6H5UQGySH EfCTR3oXY5xI5diChbktkkwFRg bXcdurXvjPvqMFcpCHegJ483 IHRvcDsnPlBhdGllbnQgTmFtZT c0J0NfEnh8BSMjvIwbZW0ncDIo BWeiGy1nkGhyfQgxDW7yYGJc rzsfa471RgUov5dpIKXeuRBhQH mbHTV1S88hw9Z5OLFkZXUyFKY6 pEZ7fT7orCldjizgeLBexJlx anGedDrvDBskOCyuN480NHRhpC bxHtRlmaEsPRBvbPK2WX72LR20 wHPsx7W5uRQ2A3UaHVZouqpm sfrobZG9HGOlMRRtgO80Vy7moQ sdEu2dUXAeLEQ0DWIwgVPxP5Zp fG2tVhIzFIPnYXRbV0IsgBXe ZBhtC442GJguVbE2WBVtrrEvV6 UkQQLztEsxMqC5i3W6Xx2WR4K4 IJ81HJ81kSSdf5P4mBT6F0Nl OOXwhyjhhvwcuVN6ZEShFQLpbD 42In6efXjgWs4oAYFaCMP2KWBe aUNqG0DusD8vHhIfCOAnLNBd E6NwbNYrFNcvL436AUgaLlB3HD ZzvoWrH4JdETDbxMjwMwW0s5L5 Qv5GYPc3RT25KH18cENoe4W5 hJM3Y3JtWKHjzsmqcppjrYB3CJ DmRIPkyS50Dw7dbLgzZy9gLAJl KDW2TAIzaYGwE9CobT7wJjSq SJNqGUXlX2DufEVySYcwC172LZ orSxA4ABAegeOeN3SeUEGwjYct OlM3w3Q6Ji6XZCJaHL83DLW9 oIL1LB81JA74Q2DdEmjjgENueX U+PHRhYmxlIHdpZHRoPScxMDAl GaPasUriRQ7kDb9dHNAgIUNf fNppeUHmMtFcn4ktEDQpNZyuIY 9jiYyeP7CoySV0RPRcs1v4Hx55 A04bI1WhfTT+PLGchER1oBL4 fH3kShGuHdO4KRgvQ906InFhuX OhLguvv6xfj9vemDo2YsJ2YYPm kqTsmTjeFXZ5i6MpAu05J12d IHdpZHRoPSIxNSUiIHZhbGlnbj 1teB1oMk5+XHPszYJ1lMY6lR3u ZxCsYvS5ICdoS379EwWcvBXz Wfybn3bob8hreBh1UsZkFKJsdo EpbJxmEGM0z7DeAs37E8HjmFis c7JpPfs0ko62iYJjg9T6zZC1 U4QlCWUnkqoktOVnsQwyRW0uXD IvccpeRDLsoP9lAAAhP0l3AyPd HoN4AKvaH1XjblZ8UGVzuPTp SYasEOH7S62ti5J7KKRpGECeXR H7sRB0kU0ueRcxhbwmiVJboUlp lmCykZziPYocIFgbV831GVFl bVyvYKQkjQ1xXDEjkEZcuKyeID 4wNTBpbjsnPlNURUlOLCBWSVJH XC7QVDHVZPN0S0RcSrt2GKZs pCfdXH6tfPKxXPjwFw2ljKbeqY rpCX1dZHIbdtdtFOTnfE3hDWQz uTLvkYigTT6dVQXthpyct603 BxZcOFP9QPQxzTEaN7KwfJ3rMr YbYJAlUAYtU6XfxWUzPAjzE153 ZCokFyP4WTDhlpKwG0CpJNZe jNsqLnE3h0Q8Qj2lHC7eXK2xSJ cuBO78YR13zDGte0C5nWZ1Q1Rl SIPjthfcyknhrHN2DNSmQHCk cI96xXFsHZvoKq2em8Z9c589XW YaONSpeM96Am9jvVtqGIZjnBCL iP0jonkyq9ifostuOfBeDKHx CYm8CDw3HDKmwWciMbGyPER4Iw Z4TQZ3gQMteA2umIxfceciwH2z Oyc+DlfkCROzvhK7N0LrUbv6 MAUnvWdeCF3xdYQhSJceAv6duI caoJehJL2bPDPmrordOISojB9o FBIzyZArpRnaWV0kQTSiqfwx o539WyWgUSL2IBKxkNJrR3CzsR 2kBoKvHECyWSAkM8AryHKmWMxk Z054NJdoWpD4QTRljhTeI4Zo JIRseDatMwW4d6T6Px5OGS7VET G9O8RdBvh9BALngYvoBJ3alQHf OPvlLc9bmTrxjMaeTF3fZAKe nrhpDPEeqK5zWJHypVZznTpmLE 7rPGWnnwene859PjDaNNQ3NKKt yWHxT1AacI9dHuMkXJYsNIOr V5DwbESoEUlpC232GHynYmJ2WU EdbeIcG2KwBIUtyKjnMuN1g0W3 Rk0ShZWgS0ChI8k0W5JxQiqt dHI+LY21UWCsEQ40hXAegMGok9 jgpVm4TbOfXBAzKGR4jKviKRvf d5QaCYYsO89czREcr0C5QQFh mXpwgMQqEbPtwTM8qI2dZStzsg skl1lyfuhyQsmcd2axej06hQ04 D36eJWszNZRpDRLsRSTxYKQu rNvnsk4yoB0tRw1+LSHbhXQ6aA M5zT8rVgDlVkQ6JVohG108WyDb kHRaLjmhi6tla7yjcPz1DqCf UXSnvnSemSfdWHD7g7BnLt59U1 9sIHdpZHRoPSIyMCUiIHZhbGln wa2ohF7fGm4+MI1qp1saci58 uG90nKR+ULUhENY6yQwzNZjxND GixC0yILscJnR7HJIrQkTviU73 yFNmOPylJl0gtInfwMvyIA4z ITXjjqrtz610EsAfz8qtEHBceM MlHYikFER9H15bb0R6UCMnDEKk TKB2iVN8yL4imPvzekhwbNZn bUoolvZkrWabFQkcPAbqY142JB YfzBonZsAhiUOaT1hanfMKWL1t OjwvdGQ+CTZpEGT4mMvpAVzb SUAznZ9uQJEmO8a1ZoGxQhN8BK hdP6IrmfA8URRluKHzGLObiNPA eS5epqgjq2xbmbxqJnKtYALo TYu1LMg7ZNVymRfcVhBuDOD8Oo N3III0mAJtpQ1nqKdlelekmN4z Oyc+RklOOjwvdGQ+PHRkIHN0 yIlpMIccXPNfoW7cAXDeQ6y6Tq OdJzY7SArdQ8LdzvJ0UEFloOFm CEIoyBSQgQ3xomdfi8wwbvhy ElUcHNMlBAp2QHg3WZKczGtwTu EoNHZ9WnK9GGB4dYZwpT8vtAvd oyecsI2nWpi+TVJOOjwvdGQ+ GSZaLQE5kIyuJCdfXIBmfX9dKK DtT6a6YcYcIxS3QPkoM8NjpwY6 AGCxwFNeHPJneJFRyJ9rncnk p6swqbgvIdNnXDPgRMx8FYb1HG YwkIepYuWxKNI3CaL8CIZ0mFOk qB1tlLkxfezkrB3mXac+UGF5 YXT2BH76MP26F1OaBqmdcVRodK U+PHRhYmxlIHdpZHRoPScxMDAl XbIcfFxyPU9yCj2lHKPvDEIw bGx (more content not included)... Normal [facility] ED Clinical Summaryon 2021 ED Clinical Summary [facility] - Emergency Department [address] [place] [address] [id number] ED Clinical Summary PERSON INFORMATION Name: ZULEIKA WYATT NORRIS Age: 31 Years Sex: FEMALE : 1990 MRN: Acct#: Visit Reason: Rib/trunk pain-swelling; ABD PAIN Arrival: 11/13/2021 16:30:24 Discharge: 11/13/2021 18:01:00 LOS: 000 01:31 Check In: 11/13/2021 16:30:24 Checkout:11/13/2021 18:01:00 Address: [address] [place] [address] [address] [place] [address] PCP: Andie Stoddard PROVIDER INFORMATION Provider Role [...] Follow-Up: With: Address: When: CUONG ORTI[address] [place] [address] Within 1 to 2 days Comments: Diagnosis [...] results be sent to Dr. Ortiz, your HIGHWAY SAFETY ENGINEER physician. She will contact his office tomorrow [...] Patient/family/caregiver verbalizes understanding of instructions given Comment: [facility] ED Note-Nursingon 11-13-2021 ED Note-Nursing pt arrives [...] 6 with steady gait and no assistance. [facility] ED Patient Summaryon 022 ED Patient Summary [facility] - Emergency Department [address] [place] [id number] PATIENT DISCHARGE INSTRUCTIONS Patient Information Name: ZULEIKA WYATT Age: 31 Years Date of : 1990 Reason For Visit: Rib/trunk pain-swelling; ABD PAIN Arrival Time: 11/13/2021 16:30:24 Primary Care Physician: Andie Stoddard Attending Physician: Gamaliel Wyman MD Comment: Visit Diagnosis: Diagnoses This Visit Elevated blood pressure reading (R03.0) History of abdominal pain (Z87.898) at early stage (Z34.90) Rib/trunk pain-swelling ([id number]) Prescription Information: If you have been given a prescription for narcotics, seek immediate medical attention if you have any difficulty breathing or any sudden status changes such as confusion and sleepiness. If you or anyone you know is experiencing suicidal thoughts, mental health, alcohol and/or drug addiction problems; contact the [facility] 07/01 Crisis Hotline -Text 4HQDU so 220837. If you received any narcotics, sedation, or [...] sign any legal documents With: Address: When: POLO CUONG [address] [place] [address] Within 1 to 2 days Comments: Diagnosis [...] results be sent to Dr. Ortiz, your HIGHWAY SAFETY ENGINEER physician. She will contact his office tomorrow [...] and treatment you received today in the [facility] Emergency Department were for an urgent problem and are not intended as complete care. It is important for you to follow up with a doctor, nurse practitioner, or physician?s hospital aides and assistants teacher for ongoing care. If your symptoms become [...] so we can reach you if necessary. [facility] Emergency Department has provided you with a complete list of medications post discharge. Please inform your primary montessori teacher/provider of your visit and for further instruction [...] Temporal: 3 (more content not included)... Normal [facility] hCG Quantitativeon 2 hCG Quantitative 93006.0 mIU/mL High 0.0-0.6 [facility] Comment on above: Order Comment: Lucy whitney call or fax results to Dr. Ortiz's office Result Comment: Resu lt confirmed by dilution Post-Menopausal Reference Range is: 0.1-11.6 mIU/mL Performed By: #### [id number] #### [facility] (DEFAULT) [address] [place] [address] Coding Summary.on 12-19-2018 Coding Summary. CODING DATE: 019 FINAL [facility] STATUS: Left Against Medical Advice PAYOR: Medicaid [...] Boykin Date Saved: 12/19/2018 10:35 am Normal [facility] ED Clinical Summaryon 2018 ED Clinical Summary (Inserted Image. Elena ble to display) [place] [id number] ED Clinical Summary Person Information Name: ZULEIKA VILLALTA/[facility] Age: 28 Years : 1990 12:00 AM Sex: Female Language: PCP: Marital Status: Phone: [phone] Visit Id: Visit Reason: Test; MENSTRUAL PROBLEMS [...] 12/15/2018 5:58 PM 12/15/2018 5:58 PM ADDRESS: [address] [place] [address] [place] [id number] PHYS DOC NOTES: MEDICAL INFORMATION: Prescriptions Given: PATIENT EDUCATION INFORMATION: Instructions: Follow up: DIAGNOSIS: Normal [facility] ED Patient Education Noteon 12-15-2018 ED Patient Education Note Normal [facility] ED Patient Summaryon 019 ED Patient Summary (Inserted Image. Elena ble to display) [address] [id number] Patient Discharge Instructions Person Information Name: ZULEIKA VILLALTA Age: 28 Years Arrival Date: 12/15/2018 4:37 PM Discharge Diagnosis: Primary Care Physician: Provider Information Primary Provider: Advanced Horseshoer:None The exam and treatment you received in the Emergency Department were for an urgent problem and are not intended as complete care. It is important that you follow up with a doctor, nurse practitioner, or physician?s hospital aides and assistants teacher for ongoing care. If your symptoms become [...] opioids can be used to help relieve ddnymacx-zs-hxscsw pain and are often prescribed following a [...] be struggling with addiction, tell your health care transport nurse and ask for guidance or call SAM[employer]?S National Helpline at 8-177-317-VHYM. v Source: [place] Department of Health and Human Services/Center for Disease Control & Prevention [facility] Medications Given: Medication Dose Route No medications found. Medication Information: Comment: Pharmacy Information: Thank you for choosing [facility] Patient Education Materials: JADEN Jacome [place] , have received the following patient education materials/instructions and have verbalized understanding: Patient Education Materials: Follow-up Instructions: Prescriptions: Patient Signature __ Date Clinician/Nurse Signature Date 12/15/18 17:58:10 Normal [facility] Progress Note-Nurseon 2018 Progress Note-Nurse Patient: EDGARDO [...] to take care of her daughter. Normal [facility] U BetaHcg Qualon 12-15-2018 HCG.beta subunit (U) [Moles/Vol] Negative Normal [facility] Comment on above: Performed By: #### 2 [id number] #### [facility] [address] [place] [address] UA With Cult Reflexon 2018 Bacteria LM Ql (Urine sed) TRACE Normal Trace [facility] Comment on above: Performed By: #### 2 [id number], [id number] #### [facility] [address] [place] [address] Bilirubin Ql (U) Negative Normal Negative [facility] Comment on above: Performed By: #### 2 [id number], [id number] #### [facility] [address] [place] [address] Clarity (U) CLEAR Normal Clear [facility] Comment on above: Performed By: #### 2 [id number], [id number] #### [facility] [address] [place] [address] Color (U) YELLOW Normal Yellow [facility] Comment on above: Performed By: #### 2 [id number], [id number] #### [facility] [address] [place], [place] [id number] Epithelial cells.squamous LM.HPF (Urine sed) [#/Area] 0-2 Normal 0-2 [facility] Comment on above: Performed By: #### 2 [id number], [id number] #### [facility] [address] [place] [address] Glucose Test strip (U) [Mass/Vol] Negative Normal Negative [facility] Comment on above: Performed By: #### 2 [id number], [id number] #### [facility] [address] [place] [address] Hemoglobin Ql (U) Negative Normal Negative [facility] Comment on above: Performed By: #### 2 9591287, [id number] #### [facility] [address] [place] [address] Ketones (U) [Mass/Vol] Negative Normal Negative [facility] Comment on above: Performed By: #### 2 3072128, [id number] #### [facility] [address] [place] [address] [place].plasma/[place] .RBC (Bld) [Mass ratio] 0-3 Normal 0-3 [facility] Comment on above: Performed By: #### 2 2005847, [id number] #### [facility] [address] [place] [address] Nitrite Ql (U) Negative Normal Negative [facility] Comment on above: Performed By: #### 2 2391963, [id number] #### [facility] [address] [place] [address] pH (U) 6.5 [pH] 5.0-9.0 [facility] Comment on above: Performed By: #### 2 6674942, [id number] #### [facility] [address] [place] [address] Protein (U) [Mass/Vol] Negative Normal Negative [facility] Comment on above: Performed By: #### 2 8348843, [id number] #### [facility] [address] [place] [address] Specific gravity (U) [Rel density] 1.010 1.005-1.030 [facility] Comment on above: Performed By: #### 2 2046910, [id number] #### [facility] [address] [place] [address] UA Spec Desc Clean Catch Normal [facility] Comment on above: Performed By: #### 2 4331219, [id number] #### [facility] [address] [place] [address] Urobilinogen Qn (U) 0.2 {Pamela'U}/dL Normal 0.0-1.0 [facility] Comment on above: Performed By: #### 2 4805612, [id number] #### [facility] [address] [place] [address] WBC Auto Ql (U) Negative Normal Negative [facility] Comment on above: Performed By: #### 2 6621481, [id number] #### [facility] [address] [place] [address] WBC LM.HPF (Urine sed) [#/Area] 0-5 Normal 0-5 [facility] Comment on above: Performed By: #### 2 1528228, [id number] #### [facility] [address] [place] [address] Auto Diffon 12-12-2017 Basophils Auto #/vol (Bld) 0.1 E3/mcL Normal 0.0-0.2 [facility] Comment on above: Order Comment: Order Added by Discern Expert. Performed By: #### 2 178766 ####KADEN [address]CrrMtij[address] [place] [address] Basophils/100 WBC Auto (Bld) 0.9 % Normal 0.0-2.0 [facility] Comment on above: Order Comment: Order Added by Discern Expert. Performed By: #### 2 327362 ####KADEN BairdEacBnhp[address] [place] [address] Eos Absolute 0.0 E3/mcL Normal 0.0-0.7 [facility] Comment on above: Order Comment: Order Added by Discern Expert. Performed By: #### 2 914146 ####KADEN BairdRvfAkvp[address] [place] [address] Eosinophils/100 leukocytes 0.4 % Normal 0.0-11.0 [facility] Comment on above: Order Comment: Order Added by Discern Expert. Performed By: #### 2 930519 ####KADEN BairdBxxDyqq1231 [place] [address] Lymphocytes 1.4 E3/mcL Normal 1.2-3.4 [facility] Comment on above: Order Comment: Order Added by Discern Expert. Performed By: #### 2 927329 ####KADEN BairdKbmPkmy[address]74 [place] [address] Lymphocytes/100 leukocytes 16.6 % Low 20.0-55.0 [facility] Comment on above: Order Comment: Order Added by Discern Expert. Performed By: #### 2 492202 ####KADEN BairdDouMeoy3649 [place] [address] [place] Absolute 0.5 E3/mcL Normal 0.0-0.7 [facility] Comment on above: Order Comment: Order Added by Discern Expert. Performed By: #### 2 084845 ####KADEN BairdGduYmlf1401 [place] [address] Monocytes/100 leukocytes 5.5 % Normal 0.0-10.0 [facility] Comment on above: Order Comment: Order Added by Discern Expert. Performed By: #### 2 085760 ####KADEN [address] [place] [address] Neutro Absolute 6.7 E3/mcL High 1.4-6.5 [facility] Comment on above: Order Comment: Order Added by Discern Expert. Performed By: #### 2 798843 ####KADEN [address] [place] [address] Neutro Auto 76.6 % High 37.0-75.0 [facility] Comment on above: Order Comment: Order Added by Discern Expert. Performed By: #### 2 609894 ####KADEN [address] [place] [address] CBC w/ Auto Diffon 8 Erythrocyte distribution width Auto Ratio (RBC) 15.0 % High 11.5-14.5 [facility] Comment on above: Performed By: #### 2 781445 ####KADEN [address] [place] [address] Erythrocytes (RBC) 4.94 E6/mcL Normal 3.90-5.40 [facility] Comment on above: Performed By: #### 2 820847 ####KADEN [address] [place] [address] Hematocrit (HCT) 40.0 % Normal 36.0-48.0 [facility] Comment on above: Performed By: #### 2 104661 ####KADEN [address] [place] [address] Hemoglobin mass conc (Bld) 13.0 g/dL Normal 12.0-16.0 [facility] Comment on above: Performed By: #### 2 447775 ####KADEN [address] [place] [address] MCH 26.2 pg Low 27.0-31.0 [facility] Comment on above: Performed By: #### 2 359919 ####KADEN [address] [place] [address] MCHC mass conc (RBC) 32.4 g/dL Low 33.0-37.0 [facility] Comment on above: Performed By: #### 2 320651 ####KADEN [address] [place] [address] MCV 81.0 fL Normal 78.0-100.0 [facility] Comment on above: Performed By: #### 2 540762 ####KADEN [address] [place] [address] Platelet mean volume (PMV) 7.5 fL Normal 7.4-11.0 [facility] Comment on above: Performed By: #### 2 371412 ####KADEN [address] [place] [address] Platelets 347 E3/mcL Normal 130-400 [facility] Comment on above: Performed By: #### 2 042414 ####KADEN [address] [place] [address] WBC (Leukocytes) 8.7 E3/mcL Normal 3.6-11.0 [facility] Comment on above: Performed By: #### 2 127533 ####KADEN [address] [place] [address] CMPon 12-12-2017 Alanine aminotransferase (ALT) 14 Int._Unit/L Normal 10-40 [facility] Comment on above: Performed By: #### 2 442810 ####KADEN [address] [place] [address] Albumin 3.8 g/dL Normal 3.2-5.0 [facility] Comment on above: Performed By: #### 2 546096 ####KADEN [address] [place] [address] Albumin/Globulin Ratio 1.0 {ratio} Low 1.1-1.9 [facility] Comment on above: Performed By: #### 2 974045 ####KADEN [address] [place] [address] Alk Phos 75 Int._Unit/L Normal 42-121 [facility] Comment on above: Performed By: #### 2 997201 ####KADEN [address] [place] [address] Aspartate aminotransferase (AST) 18 Int._Unit/L Normal 10-42 [facility] Comment on above: Performed By: #### 2 287275 ####KADEN [address] [place] [address] Bili Total 1.0 mg/dL Normal 0.2-1.0 [facility] Comment on above: Performed By: #### 2 609063 ####KADEN [address] [place] [address] BUN/Creatinine Ratio 12.5 ratio Normal 5.4-30.0 [facility] Comment on above: Performed By: #### 2 274466 ####KADEN [address] [place] [address] Creatinine 0.8 mg/dL Normal 0.6-1.3 [facility] Comment on above: Performed By: #### 2 647638 ####KADEN BairdOatEuyi[address]99 [place] [address] Globulin 3.8 g/dL Normal 2.0-4.0 [facility] Comment on above: Performed By: #### 2 347834 ####KADEN [address] [place] [address] Protein 7.6 g/dL Normal 6.4-8.3 [facility] Comment on above: Performed By: #### 2 233754 ####KADEN BairdFfjIqsr[address]42 [place] [address] Urea nitrogen 10 mg/dL Normal 7-18 [facility] Comment on above: Performed By: #### 2 282048 ####KADEN [address]airdGipFodj[address]751 [place] [address] Calcium 9.3 mg/dL Normal 8.4-10.2 [facility] Comment on above: Performed By: #### 2 456438 ####KADEN BairdLxiCunm2952 [place] [address] Chloride 105 mmol/L Normal 98-107 [facility] Comment on above: Performed By: #### 2 739436 ####KADEN [address] [place] [address] CO2 25.1 mmol/L Normal 24.0-30.0 [facility] Comment on above: Performed By: #### 2 553082 ####KADEN [address] [place] [address] Glucose mass conc 101 mg/dL High 70-99 [facility] Comment on above: Performed By: #### 2 654720 ####KADEN [address] [place] [address] Potassium molar conc 3.4 mmol/L Low 3.5-5.1 [facility] Comment on above: Performed By: #### 2 012879 ####KADEN [address] [place] [address] Sodium 140 mmol/L Normal 136-145 [facility] Comment on above: Performed By: #### 2 896281 ####KADEN [address] [place] [address] Lipase Levelon 12-12-2017 Lipase Lvl 30 U/L Normal 8-57 [facility] Comment on above: Performed By: #### 2 973551 ####KADEN [address] [place] [address] UA Completeon 12-12-2017 UA Blood 3+ Normal Negative [facility] Comment on above: Performed By: #### 2 553952 ####KADEN PgjTqoc3324 [place] [address] UA Bacteria Trace Abnormal None [facility] Comment on above: Performed By: #### 2 078505 ####KADEN BairdShlQbwc7224 [place] [address] UA Clarity SltCloudy Abnormal Clear [facility] Comment on above: Performed By: #### 2 907706 ####KADEN [address] [place] [address] UA Hyal Cast 0-2 Normal 0-2 [facility] Comment on above: Performed By: #### 2 595996 ####KADEN JjtVumr[address]277 [place] [address] UA Leuk Est 3+ Abnormal Negative [facility] Comment on above: Performed By: #### 2 350081 ####KADEN BairdJvsXatg9370 [place] [address] UA Mucous Many Abnormal Trace [facility] Comment on above: Performed By: #### 2 959384 ####KADEN [address] [place] [address] UA Nitrite Negative Normal Negative [facility] Comment on above: Performed By: #### 2 654953 ####KADEN [address] [place] [address] UA pH 5.0 Normal 4.6-8.0 [facility] Comment on above: Performed By: #### 2 660938 ####KADEN [address] [place] [address] UA Protein 1+ Abnormal Negative [facility] Comment on above: Performed By: #### 2 735432 ####KADEN [address] [place] [address] UA Spec Grav 1.026 Normal 1.003-1.030 [facility] Comment on above: Performed By: #### 2 702600 ####KADEN [address] [place] [address] UA Squam Epithelial 0-5 Normal 0-5 [facility] Comment on above: Performed By: #### 2 404595 ####KADEN TsvUdts5715 [place] [address] UA Urobilinogen 2.0 mg/dL Abnormal [facility] Comment on above: Performed By: #### 2 605436 ####KADEN [address] [place] [address] UA WBC >50 Abnormal 0-5 [facility] Comment on above: Performed By: #### 2 924613 ####KADEN BairdUyhXeen[address] [place] [address] Urine, color Yellow Normal Yellow [facility] Comment on above: Performed By: #### 2 440640 ####KADENMorelia [address]airdXjqVrli2365 [place] [address] Urine, erythrocytes 20-50 Abnormal 0-3 [facility] Comment on above: Performed By: #### 2 944079 ####KADEN BairdCvuEqsf8551 [place] [address] Urine, glucose Negative Normal Negative [facility] Comment on above: Performed By: #### 2 376127 ####KADEN [address] [place] [address] Urine, ketones presence Trace Normal [facility] Comment on above: Performed By: #### 2 344506 ####KADEN [address] [place] [address] Urine, urobilinogen Negative Normal Negative [facility] Comment on above: Performed By: #### 2 771447 ####KADEN [address] [place] [address] eGFRon 12-12-2017 eGFR AA >60 Normal [facility] Comment on above: Order Comment: Order Added by Discern Expert. Performed By: #### 2 763781 ####KADEN [address] [place] [address] eGFR (non-black) mL/min/{1.73_m2} Normal [facility] Comment on above: Order Comment: Order Added by Discern Expert. Performed By: #### 2 262743 ####KADEN [address] [place] [id number] HISTORY PHYSICALon 8 HISTORY PHYSICAL HNO ID: [id number] thor: Clara Baker WolfeService: Maternal MedicineAuthor Type: PhysicianType: HANDPFiled: 12/02/2017 9:04 AMNote Text:[facility]ARD [facility] DOCUMENTDISCHARGE SUMMARYPatient Name: Zuleika Gtz Date: [...] 4 weeks with provider.Clara Jama, DO [facility] PROGRESSon 12-02-2017 PROGRESS HNO ID: [id number] thor: Marie Lema (Res) LendeService: ObstetricsAuthor Type: [...] with more than 50% of the total tqvo-xp-hbkthpvy of the visit in counseling / coordination [...] decreasing.Ambulating without difficulty.OBJECTIVE:PHYSI GEN EXAM:Heart: RR, S1, M8Xesjk: clear to auscultationAbdomen: Soft Bowel sounds present [...] December 02, 2017 : 5:45 AM Normal [facility] SOCIAL WORKon 12-02-2017 SOCIAL WORK HNO ID: [id number] thor: Meredith Davidson) ManueloService: Social WorkAuthor Type: Social WorkerType: Social WorkFiled: 12/02/2017 12:25 PMNote Text:SOCIAL WORK CONSULT NOTESERVICE DATE: 12/02/2017SERVICE TIME: 1015Referred by: Jose for visit:Maternal/ - adjustment to conditionLiving Arrangement: HomeLives With: PartnerFinancial Resources: DisabledPrimary Contact:Extended Emergency Contact Information DARRELL BRANCH [facility] Hospitaladelaida Emergency Contact: No,ContactRelation: OtherSupportive: YesOther Important [...] from hospital. (FOBparents are Anamika Munoz of [address] [place] [address] , [facility]).Per pt and FOB, all needed baby supplies and equipment are at the [facility] and a nursery has been set up.Per pt, name of baby girl is Martha Branch.Pt states she is on SSI and WIC.Pt shares that she is in ongoing counseling at [facility] in [place] and has appointments 2 x per month.Discussed with pt and FOB signs and sx of depression; safe babysleep and discussed ways to deal with crying infant. Pt again states sheis going to rely on her support system.No additional issues identified at this time. Encouraged pt and FOB toutilize services through [facility]. Providedcontact information.Outcome/Recomm endations:[facility] (minutes): 60SIGNATURE: CARLA Goncalves PATIENT NAME: Zuleika Hernandez: December 02, 2017 : 11:10 AM PAGER/CONTACT#: [facility] ANES INTRAOPon 12-01-2017 ANES INTRAOP HNO ID: [id number] thor: Terrance Leblanc) Richyervice: AnesthesiologyAuthor Type: Nurse AnesthetistType: Anesthesia IntraOpFiled: 12/01/2017 9:41 AMNote Text:ANALGESIA PROGRESS RECORDCATHETER REMOVAL/END OF CASESERVICE DATE: 12/01/2017REMOVAL DATE AND TIME: 11/30/2017, 3DELIVERY DATE AND TIME: 11/30/2017 at 5:49 PMCATHETER REMOVAL:Catheter Removal: See [facility] Nursing noteSIGNATURE: Terrance Contreras APRN.CRNA PATIENT NAME: Zuleika Hernandez: December 01, 2017 : 9:40 AM PAGER/CONTACT #: [facility] ANES Keke 12-01-2017 ANES POST HNO ID: [id number] thor: Terrance Lockhartervice: AnesthesiologyAuthor Type: Nurse AnesthetistType: [...] by Anesthesia Service: NoneOther Remarks:SIGNATURE: Terrance Contreras APRN.INTERNAL CONTROLS SPECIALIST PATIENT NAME: Zuleika LambATE: December 01, 2017 : 9:42 AM PAGER/CONTACT #: [place] [facility] PROGRESSon 12-01-2017 PROGRESS HNO ID: [id number] thor: Marie Lema (Res) LendeService: ObstetricsAuthor Type: [...] decreasing.Ambulating without difficulty.OBJECTIVE:PHYSI GEN EXAM:Heart: RR, S1, B6Zhqvi: clear to auscultationAbdomen: Soft Bowel sounds present [...] December 01, 2017 : 6:40 AM Normal [facility] ABO/Rh Confirmationon 2017 ABO group Nom (Bld) A Normal [facility] Comment on above: Performed By: #### A JESSIE #### [facility] [address] [place] [address] RH Type Positive Normal [facility] Comment on above: Performed By: #### A JESSIE #### [facility] [address] [place] [address] ANES PREOPon 11-30-2017 ANES PREOP HNO ID: [id number] thor: Aaron Leblanc) PoloService: AnesthesiologyAuthor Type: Nurse [...] of Sleep Apnea: DeniesHematocritDate Value Ref Range Kfisyu3411/30/2017 32.3 (L) 34.1 - 44.9 % Final Platelet CountDate Value Ref Range Evwbre2711/30/2017 193 182 - 369 thou/cmm Final Vitals: [id number] 530865 139 143BP: 142/75 138/81Pulse: 75 81Resp:Temp: 36.6 [...] as needed. Disp: Rfl:[facility].I have interviewed and examined the patient. I have reviewed the medicalrecord , pertinent consults and/or the pre-anesthesia evaluation,pertinent labs, and test results.Significant changes in the patient's condition since the History andPhysical, not otherwise documented in primary service progress notes: NoThis contains updated information obtained within 48 hours ofSurgery/Procedure.SIGNAT URE: Hema Cuellar APRN.INTERNAL CONTROLS SPECIALIST PATIENT NAME: Zuleika LambATE: November 30, 2017 : 12:13 PM : 1990 Normal [facility] Auto Diffon 11-30-2017 Basophils Auto #/vol (Bld) 0.1 E3/mcL Normal 0.0-0.2 [facility] Comment on above: Order Comment: Order Added by Discern Expert. Performed By: #### 2 959991 ####KADEN QkcAdtl6520 [place] [address] Basophils/100 WBC Auto (Bld) 0.9 % Normal 0.0-2.0 [facility] Comment on above: Order Comment: Order Added by Discern Expert. Performed By: #### 2 865209 ####KADEN BairdIwgAvsk0985 [place] [address] Eos Absolute 0.1 E3/mcL Normal 0.0-0.7 [facility] Comment on above: Order Comment: Order Added by Discern Expert. Performed By: #### 2 360106 ####KADEN [address] [place] [address] Eosinophils/100 leukocytes 1.0 % Normal 0.0-11.0 [facility] Comment on above: Order Comment: Order Added by Discern Expert. Performed By: #### 2 945225 ####KADEN [address] [place] [address] Lymphocytes 2.0 E3/mcL Normal 1.2-3.4 [facility] Comment on above: Order Comment: Order Added by Discern Expert. Performed By: #### 2 855234 ####KADEN [address] [place] [address] Lymphocytes/100 leukocytes 22.1 % Normal 20.0-55.0 [facility] Comment on above: Order Comment: Order Added by Discern Expert. Performed By: #### 2 312224 ####KADEN [address] [place] [address] [place] Absolute 0.7 E3/mcL Normal 0.0-0.7 [facility] Comment on above: Order Comment: Order Added by Discern Expert. Performed By: #### 2 664933 ####KADEN [address] [place] [address] Monocytes/100 leukocytes 7.5 % Normal 0.0-10.0 [facility] Comment on above: Order Comment: Order Added by Discern Expert. Performed By: #### 2 820694 ####KADEN [address] [place] [address] Neutro Absolute 6.1 E3/mcL Normal 1.4-6.5 [facility] Comment on above: Order Comment: Order Added by Discern Expert. Performed By: #### 2 360025 ####KADEN BairdCiwHuup[address]857 [place] [address] Neutro Auto 68.5 % Normal 37.0-75.0 [facility] Comment on above: Order Comment: Order Added by Discern Expert. Performed By: #### 2 930312 ####KAEDN [address] [place] [address] CBC w/ Auto Diffon 8 Erythrocyte distribution width Auto Ratio (RBC) 14.3 % Normal 11.5-14.5 [facility] Comment on above: Performed By: #### 2 683328 ####KADEN [address] [place] [address] Erythrocytes (RBC) 4.34 E6/mcL Normal 3.90-5.40 [facility] Comment on above: Performed By: #### 2 165919 ####KADEN [address] [place] [address] Hematocrit (HCT) 35.1 % Low 36.0-48.0 [facility] Comment on above: Performed By: #### 2 440984 ####KADEN [address] [place] [address] Hemoglobin mass conc (Bld) 11.6 g/dL Low 12.0-16.0 [facility] Comment on above: Performed By: #### 2 953025 ####KADEN [address] [place] [address] MCH 26.6 pg Low 27.0-31.0 [facility] Comment on above: Performed By: #### 2 863950 ####KADEN [address] [place] [address] MCHC mass conc (RBC) 32.9 g/dL Low 33.0-37.0 [facility] Comment on above: Performed By: #### 2 763208 ####KADEN [address] [place] [address] MCV 80.9 fL Normal 78.0-100.0 [facility] Comment on above: Performed By: #### 2 390452 ####KADEN [address] [place] [address] Platelet mean volume (PMV) 7.6 fL Normal 7.4-11.0 [facility] Comment on above: Performed By: #### 2 455607 ####KADEN OgxJlxz[address]178 [place] [address] Platelets 217 E3/mcL Normal 130-400 [facility] Comment on above: Performed By: #### 2 518878 ####KADEN DnqSggk6388 [place] [address] WBC (Leukocytes) 8.8 E3/mcL Normal 3.6-11.0 [facility] Comment on above: Performed By: #### 2 102304 ####KADEN OxcQaid7795 [place] [address] CONSULTon 11-30-2017 CONSULT HNO ID: [id number] thor: Marie Lema (Res) LendeService: ObstetricsAuthor Type: [...] T0 L0 SAB1 TAB0 Ectopic0 Multiple0 Live Haseov6Eicr of Baby 1: Not recorded Date: 2014 [...] pupils equal, no thyromegalyLungs: clearHeart: RR, S1, P9Pvpkioz: soft, nontender, no massesUterus: soft, NTExtremities: 1+ [...] Epi prn4. FB soon5. [place] [address]. anomalies- prominent cisterna magna, bilateral periventrcularnodular heterotopia, [...] EF 55%.10. H/o maternal clubfoot-s/p repair as . H/o tobacco abuseSigned out to [facility] for deliveryDr. Amado reviewed with Dr. MaldonadoSIGNATURE: Marie Hassan DO PATIENT NAME: Zuleika LambATE: November 30, 2017 : 6:49 AM PAGER/CONTACT #: [phone] Normal [facility] HISTORY PHYSICALon HISTORY PHYSICAL HNO ID: [id number] thor: Marie Lema (Res) JabiereService: ObstetricsAuthor Type: [...] T0 L0 SAB1 TAB0 Ectopic0 Multiple0 Live [place]tawea4Vigc of Baby 1: Not recorded Date: 2014 [...] pupils equal, no thyromegalyLungs: clearHeart: RR, S1, X3Evandmh: soft, nontender, no massesUterus: soft, NTExtremities: 1+ [...] Epi prn4. FB soon5. [place] [address]. anomalies- prominent cisterna magna, bilateral periventrcularnodular heterotopia, [...] EF 55%.10. H/o maternal clubfoot-s/p repair as [id number]. H/o tobacco abuseSigned out to [facility] for deliveryD/w Dr. AmadoSIGNATURE: Marie Hassan DO PATIENT NAME: Zuleika BecerrilAraceliATE: November 30, 2017 : 6:49 AM PAGER/CONTACT #: [phone] Normal [facility] Hemogramon 11-30-2017 Erythrocyte distribution width Ratio (RBC) 13.6 % Normal 11.7-14.4 [facility] Comment on above: Performed By: #### C BC1 #### [place] [address] Hematocrit Volume Fraction (Bld) 32.3 % Low 34.1-44.9 [facility] Comment on above: Performed By: #### C BC1 #### [place] [address] Hemoglobin mass conc (Bld) 10.4 g/dL Low 11.2-15.7 [facility] Comment on above: Performed By: #### C BC1 #### [place] [address] MCH Entitic mass (RBC) 26.4 pg Normal 25.6-32.2 [facility] Comment on above: Performed By: #### C BC1 #### [place] [address] MCHC mass conc (RBC) 32.2 % Normal 31.6-34.8 [facility] Comment on above: Performed By: #### C BC1 #### [facility] [address] [place] [address] MCV Entitic volume (RBC) 82.0 fL Normal 79.4-94.8 [facility] Comment on above: Performed By: #### C BC1 #### [facility] [address] [place] [address] Platelet mean volume Entitic volume (Bld) 9.9 fL Normal 9.4-12.3 [facility] Comment on above: Performed By: #### C BC1 #### [facility] [address] [place] [address] Platelets #/vol (Bld) 193 thou/cmm Normal 182-369 [facility] [place] Comment on above: Performed By: #### C BC1 #### [place] [address] RBC #/vol (Bld) 3.94 mil/cmm Normal 3.93-5.22 [facility] Comment on above: Performed By: #### C BC1 #### [facility] [address] [place] [address] RDW SD 40.6 fl Normal 36.4-46.3 [facility] Comment on above: Performed By: #### C BC1 #### [facility] [address] [place] [address] WBC #/vol (Bld) 9.85 thou/cmm Normal 3.98-10.04 [facility] Comment on above: Performed By: #### C BC1 #### [place] [address] LD NOTEon 11-30-2017 LD NOTE HNO ID: [id number] thor: Mraie Lema (Res) LendeService: ObstetricsAuthor Type: ResidentType: LANDD Delivery NoteFiled: 11/30/2017 6:19 PMNote Text: -------Attestation signed by Serenity Maldonado MD at 12/01/2017 6:04 PMI saw and evaluated the patient. I reviewed the resident's note and agree,except that patient seen by [facility] (patient has FAS, fetus with multipleanomlaies) service, consult placed to [facility] for management of labor AND delivery.Liset montez presented at 39w with PROM, had Pugh balloon AND Pitocin foraugmentaion. Late in labor noted tachycardia that improved with IVFB ANDTylenol (mother rico had elevated temp but felt warm). Transported to [facility] so baby could go to awaiting NICU team for evaluation (was allowed tohave delivery to abdomen AND 30 sec delay for cord clamping). Pushed well AND hadSVD of a viable female infant (APGARS 8,9, weight of 3200g/7#1oz) over intactperineum. Uterus slightly boggy after delivery, responded to massage AND Pitocininfusion, EBL ~500cc.Serenity Maldonado MD ----OBSTETRICSDELIVERY SUMMARY - VAGINAL DELIVERYGestational Age at Delivery: 70c6nPmrtydm Date: 11/30/2017Service Time: 1799Kebethn, Bg Zuleika Dillard [[id number]]Labor EventsRupture Date: 11/30/17Rupture Time: 224Rupture Type: PROMFluid [...] November 30, 2017 : 6:15 PM Normal [facility] NURSING PROGon 11-30-2017 NURSING PROG HNO ID: [id number] thor: Marguerite (Rn) ANEUDY Albarranervice: (none)Author Type: Registered NurseType: Nursing Progress NoteFiled: 11/30/2017 7:06 PMNote Text: INTRODUCED SELF TO PATIENT AND SUPPORT PERSONS. PLAN OF CARE DISCUSSED.ASSESSMENT PERFORMED. PATIENT DENIES COMPLAINTS. Normal [facility] NURSING PROG HNO ID: [id number] thor: Darcie (Rn) ANEUDY Landeroservice: NursingAuthor Type: Registered NurseType: Nursing Progress NoteFiled: 11/30/2017 10:03 AMNote Text:Patient up to shower for comfort. Boyfriend at side. On telemetrymonitors. RN remains in room. FHR difficult to maintain continuoustracing Normal [facility] NURSING PROG HNO ID: [id number] Author: Norah MagañaRn) KARRI Eastman Service: Nursing Author Type: Registered Nurse Type: Nursing Progress Note Filed: 11/30/2017 7:18 AM Note Text: Report given to Darcie DURAN and care transferred at this time. Normal [facility] PROCEDUREon 11-30-2017 PROCEDURE HNO ID: [id number] thor: Aaron (Chiara) PoloService: AnesthesiologyAuthor Type: Nurse [...] Catheter in Epidural Space: 5 cmInterspace: approximately L2-Y6Bryigp of Attempts: 1Wet Tap Complication: NoDural Puncture [...] nurses' documentation for additional vitals.SIGNATURE: Hema Cuellar APRN.INTERNAL CONTROLS SPECIALIST PATIENT NAME: Zuleika BecerrilnDATE: November 30, 2017 : 12:27 PM PAGER/CONTACT #: Normal [facility] PROGRESSon 11-30-2017 PROGRESS HNO ID: [id number] thor: Marie Lema (Res) LendeService: ObstetricsAuthor Type: ResidentType: Progress NotesFiled: 11/30/2017 5:04 PMNote Text:UpdatePatient is pushing in the OR. Cat I FHRT with baseline around 160s. updated and in house.Franki Neri 2017 5:04 PM [facility] PROGRESS HNO ID: [id number] Author: Darcie MagañaRn) Tigre RN Service: Nursing Author Type: Registered Nurse Type: Progress Notes Filed: 11/30/2017 3:29 PM Note Text: Patient feeling pressure, cervical exam 9.5 cm. NICU notified. Patient feels warm, but temp 36.9. Normal [facility] PROGRESS HNO ID: [id number] thor: Marie Lema (Res) LendeService: ObstetricsAuthor Type: [...] pt comfortable4. s/p FB5. s/[place] [address]. anomalies- prominent cisterna magna, bilateral periventrcularnodular heterotopia, [...] EF 55%.10. H/o maternal clubfoot-s/p repair as xmtzxa89. H/o tobacco abuse12. Cat II- Isolate late decelerations. Moderate variability. Continuingto make cervical change. Not on Cat II protocol.SIGNATURE: Marie Hassan DO PATIENT NAME: Zuleika LambATE: November 30, 2017 : 1:35 PM PAGER/CONTACT #: [phone] Normal [facility] PROGRESS HNO ID: [id number] thor: Yolanda (Joaquín) Suzyervice: ObstetricsAuthor Type: ResidentType: [...] pt comfortable4. s/p [place] [address]. anomalies- prominent cisterna magna, bilateral periventrcularnodular heterotopia, [...] EF 55%.10. H/o maternal clubfoot-s/p repair as nlossl61. H/o tobacco abuseSIGNATURE: Yolanda Barbosa DO PATIENT NAME: Zuleika LambATE: November 30, 2017 : 1:11 PM PAGER/CONTACT #: [phone] Normal [facility] PROGRESS HNO ID: [id number] thor: Yolanda Almonteervice: ObstetricsAuthor Type: ResidentType: Progress [...] Pit per protocol3. [place] [address]. s/[place] [address]. anomalies- prominent cisterna magna, bilateral periventrcularnodular heterotopia, [...] EF 55%.10. H/o maternal clubfoot-s/p repair as voinfq79. H/o tobacco abuseSIGNATURE: Yolanda Barbosa DO PATIENT NAME: Zuleika LambATE: November 30, 2017 : 11:05 AM PAGER/CONTACT #: [phone] [facility] PROGRESS HNO ID: [id number] Author: Darcie MagañaRn) KARRI Landeros Service: Nursing Author Type: Registered Nurse Type: Progress Notes Filed: 11/30/2017 10:35 AM Note Text: Unable to find labwork for chart. Normal [facility] PROGRESS HNO ID: [id number] thor: Marie Lema (Res) LendeService: ObstetricsAuthor Type: [...] Pit per protocol3. [place] [address]. [place] [address]. anomalies- prominent cisterna magna, bilateral periventrcularnodular heterotopia, [...] EF 55%.10. H/o maternal clubfoot-s/p repair as uxjwtx81. H/o tobacco abuse?SIGNATURE: Marie Hassan DO PATIENT NAME: Zuleika LambATE: November 30, 2017 : 10:31 AM PAGER/CONTACT #: [phone] Normal [facility] PROGRESS HNO ID: [id number] thor: Darcie (Rn) ANEUDY Landeroservice: NursingAuthor Type: Registered NurseType: Progress NotesFiled: 11/30/2017 10:13 AMNote Text:Patient remains in shower. RN and boyfriend at side. EFM on telemetryand adjusted while patient in shower. Difficult to keep baby on. Normal [facility] PROGRESS HNO ID: [id number] thor: Yolanda (Res) SnyderService: ObstetricsAuthor Type: ResidentType: Progress NotesFiled: 11/30/2017 7:35 AMNote Text:In to place FB. Pt tolerated procedure well. Continues to leak clearfluid. Pt uncomfortable with contractions.Cat I FHT, reactive with accelsToco: 2-5 minsHeather Romina, PGY-1Obstetrics and GynecologyPager [phone]:34 AM [facility] Type and Screenon 11-30-2017 ABO group Nom (Bld) A Normal [facility] Comment on above: Performed By: #### T &S #### [facility] [address] [place] [address] Comment See Below Normal [facility] Comment on above: Result Comment: Scre en &/or Xmatch expires in 3 days at 12 midnight. Redraw patient at that time. Performed By: #### T &S #### [facility] [address] [place] [address] RH Type Positive Normal [facility] Comment on above: Performed By: #### T &S #### [facility] [address] [place] [address] Progress Noteon 11-28-2017 [employer] Authentication Interface Message Text Routine VisitSubjective: Zuleika Villalta is being seen today for her obstetrical visit. She is at 42k3wugssnuvjb. Patient reports no complaints. Movement: normal. She [...] Serial growth ultrasounds every 4 weeks.DELIVERY PLANHospital: [facility] HospitalInduction at 39 weeks; CYTOTEC IOL 12-02-17 at 5 pm at [facility]. Pre-Procedure formdone (CG)GBS culture: neg 11/07/17Contraception: [...] IVC/SVC S/P [facility] POC reviewedShe would like her follow up and contraception with Dr. Ivan.The total patient time of the visit was 15 minutes, of which greater than 50% ofthe time was spent counseling and coordinating care. Normal [facility] Progress Noteon 11-22-2017 [employer] Authentication Interface Message Text [facility] plan of care faxed to [facility] in event pt would arrive for urgent management. Normal [facility] Progress Noteon 11-21-2017 [employer] Authentication Interface Message Text Routine VisitSubjective: Zuleika Villalta is being seen today for her obstetrical visit. She is at 66e3rsuygzwxyc. Patient reports that she went to [facility] last night due toconcerns for labor. She [...] Serial growth ultrasounds every 4 weeks.DELIVERY PLANHospital: [facility] HospitalInduction at 39 weeks; CYTOTEC IOL 618-18 at 5 pm at [facility]. Pre-Procedure formdone (CG)GBS culture: neg 11/07/17Contraception: [...] IVC/SVC S/P [facility] POC reviewedFollow up in one week for OB visit and BPP. The patient is scheduled for IOL on12/02/17.Oksana amado MD Normal [facility] Progress Noteon 11-12-2017 [employer] Authentication Interface Message Text Call from [facility] that pt presented there in labor. [facility] plan of care and ACOGs faxed by Toan Chen. Provided after hours MFM number provided. Normal [facility] Group B Strep Cultureon 10-16 Group B Strep Culture Group B Strep Cult ure: No Group B Streptococci isolated. Source: VAG Collected: 11/07/17 09:00 Site: Vaginal/Rectal Received : 11/07/17 22:01Group B Strep Culture FINAL 11/10/17 08:34 No Group B Streptococci isolated. Normal [facility] Comment on above: Performed By: #### [facility] ####[facility] of [address] [phone] Progress Noteon 11-07-2017 [employer] Authentication Interface Message Text Routine VisitSubjective: Zuleika Villalta is being seen today for her obstetrical visit. She is at 47q9zvnmkfgmap. Patient reports occasional nausea. No emesis. She [...] Serial growth ultrasounds every 4 weeks.DELIVERY PLANHospital: [facility] HospitalInduction at 39 weeksGBS culture: collected and [...] OB visit and BPP.Oksana Amado MD Normal [facility] Progress Noteon 10-24-2017 [employer] Authentication Interface Message Text Routine VisitSubjective: Zuleika [...] Serial growth ultrasounds every 4 weeks.DELIVERY PLANHospital: [facility] HospitalInduction at 39 weeksGBS culture:Contraception: Considering LARC [...] and coordinating care.Marco Antonio Antonio, DO Normal [facility] Progress Noteon 10-15-2017 [employer] Authentication Interface Message Text Ped selection made. Updated prenatals Normal [facility] Progress Noteon 10-08-2017 [employer] Authentication Interface Message Text Thank you for [...] size. There was a patent foramen ovale, widteatai-cb-xeus shunt.Tricuspid valve:Normal tricuspid valve. There was normal [...] fetuses and in fetuses with CHD and iuorfdchxnpgd63h47, the ratio being below 0.3 )Impression and recommendations.1) Abnormal 3-vessel view, ascending aorta was moderately dilated. 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 thymic thoracic ratio (TT-ratio)=0.1 ( TT-ratio 0.44 in normal fetuses and in fetuses with CHD and itghwixdxpguc57k67, the ratio being below 0.3 )5) Normal [...] earlier ifcardiac condition/status changes in any way. [place] follow up and treatmentshould be determined on the basis of the findings on the initial echocardiogram.Counseling and/or coordination of care was greater than 35 minutes which is morethan 50% of the total time of 60 minutes spent on the encounter. 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 Authentication Interface Message Text Initial VisitSubjective: Zuleika [...] Serial growth ultrasounds every 4 weeks.DELIVERY PLANHospital: [facility] HospitalInduction at 39 weeksGBS culture:Contraception:TDAP recommended Constipation [...] weeks for OB visit and BPP in [place].Oksana Amado MD Normal [facility] Cytogenomic Microarray Nivia sis of Bloodon 09-10-2017 Cytogenomic Microarray Analysis of Blood SEE BELOW Normal [facility] Comment on above: Result Comment: SPEC IMEN: BLOODCLINICAL INFORMATION: Learning disability[F81.9]TEST: CYTOGENOMIC MICROARRAY ANALYSISRESULT SUMMARY:Normal femaleNOMENCLATURE:arr(1-22,X)c6TSASKZJBMDIBKE & COMMENTS:The cytogenomics microarray analysis indicated no [...] whole genome microarray analysis was performed the FDA-clearedECO-GEN Energy(R) Dx platform, which contains approximately 2.7million markers, including 1,953,246 unique non-polymorphic copy numberprobes and 743,304 single nucleotide polymorphism (SNP) probes. Thegenome-wide functional resolution of this assay is approximately 25 kbfor deletions and 50 kb for duplications. This microarray andassociated software (Chromosome Analysis Suite Dx) were manufactured [employer] and used by the Cytogenetics and Molecular DiagnosticsLaboratories of [facility] for the purpose ofidentifying DNA copy number [...] further information regarding intendeduse and limitations, see [email or web address].Note: The Cytogenetics Laboratory has this patient's blood [...] for additional testing. 09/19/2017 BIGG GARCIA, PH.D., [facility], [facility] 09/19/2017 Performed By: #### [facility] ####[facility]'[address] [phone] MRI (SINGLE)on 018 MRI (SINGLE) MRI (SINGLE)CL [...] Dr. AJ CAMILO at 09/10/2017 10:21 Normal [facility] Progress Noteon 09-10-2017 [employer] Authentication Interface Message Text The total patient time of the visit was 15 minutes, of which greater than 50% of the time was spent counseling and coordinating care. Normal [facility] Auto Diffon 09-03-2017 Basophils Auto #/vol (Bld) 0.1 E3/mcL Normal 0.0-0.2 [facility] Comment on above: Order Comment: Order Added by Discern Expert. Performed By: #### 2 [id number] ####KADEN [address] [place] [address] Basophils/100 WBC Auto (Bld) 0.5 % Normal 0.0-2.0 [facility] Comment on above: Order Comment: Order Added by Discern Expert. Performed By: #### 2 [id number] ####KADEN [address]Fa[address] [place] [address] Eos Absolute 0.0 E3/mcL Normal 0.0-0.7 [facility] Comment on above: Order Comment: Order Added by Discern Expert. Performed By: #### 2 [id number] ####KADEN [address]XxmLvnz[address] [place] [address] Eosinophils/100 leukocytes 0.4 % Normal 0.0-11.0 [facility] Comment on above: Order Comment: Order Added by Discern Expert. Performed By: #### 2 449350 ####K[address]EN [address]DzzDelb[address] [place] [address] Lymphocytes 1.3 E3/mcL Normal 1.2-3.4 [facility] Comment on above: Order Comment: Order Added by Discern Expert. Performed By: #### 2 157220 ####KADEN [address] [place] [address] Lymphocytes/100 leukocytes 13.1 % Low 20.0-55.0 [facility] Comment on above: Order Comment: Order Added by Discern Expert. Performed By: #### 2 399920 ####KADEN [address]air[address]we[address]vdp[address] [place] [address] [place] Absolute 0.4 E3/mcL Normal 0.0-0.7 [facility] Comment on above: Order Comment: Order Added by Discern Expert. Performed By: #### 2 922625 ####[address] [place] [address] Monocytes/100 leukocytes 4.3 % Normal 0.0-10.0 [facility] Comment on above: Order Comment: Order Added by Discern Expert. Performed By: #### 2 489893 ####KADEN [address]oge[address] [place] [address] Neutro Absolute 8.4 E3/mcL High 1.4-6.5 [facility] Comment on above: Order Comment: Order Added by Discern Expert. Performed By: #### 2 880782 ####KADEN [address]KchGbgt[address] [place] [address] Neutro Auto 81.7 % High 37.0-75.0 [facility] Comment on above: Order Comment: Order Added by Discern Expert. Performed By: #### 2 [id number] ####K[address]EN [address] [place] [address] CBC w/ Auto Diffon 8 Erythrocyte distribution width Auto Ratio (RBC) 13.1 % Normal 11.5-14.5 [facility] Comment on above: Performed By: #### 2 260454 ####[address] [place] [address] Erythrocytes (RBC) 3.90 E6/mcL Normal 3.90-5.40 [facility] Comment on above: Performed By: #### 2 836563 ####KADEN [address]EbkWfur[address] [place] [address] Hematocrit (HCT) 34.7 % Low 36.0-48.0 [facility] Comment on above: Performed By: #### 2 186491 ####KADEN [address]IqtSfvc[address] [place] [address] Hemoglobin mass conc (Bld) 11.8 g/dL Low 12.0-16.0 [facility] Comment on above: Performed By: #### 2 912499 ####K[address]EN [address]GloJczj[address] [place] [address] MCH 30.3 pg Normal 27.0-31.0 [facility] Comment on above: Performed By: #### 2 393221 ####[address] [place] [address] MCHC mass conc (RBC) 34.2 g/dL Normal 33.0-37.0 [facility] Comment on above: Performed By: #### 2 554488 ####KADEN [address]XieQoml[address] [place] [address] MCV 88.8 fL Normal 78.0-100.0 [facility] Comment on above: Performed By: #### 2 427719 ####KADEN [address]Tfo[address]rwk[address] [place] [address] Platelet mean volume (PMV) 7.3 fL Low 7.4-11.0 [facility] Comment on above: Performed By: #### 2 439112 ####KADEN [address]FsgRmrp[address] [place] [address] Platelets 218 E3/mcL Normal 130-400 [facility] Comment on above: Performed By: #### 2 600925 ####KADEN [address]VweVpps[address] [place] [address] WBC (Leukocytes) 10.2 E3/mcL Normal 3.6-11.0 [facility] Comment on above: Performed By: #### 2 332214 ####KADEN [address]JznEkoz[address] [place] [address] Gest Scr Glu 1 Hron 03-20-20 18 Glucose mass conc 113 mg/dL Normal 70-140 [facility] Comment on above: Performed By: #### 2 231843 ####KADEN [address] [place] [address] FISH Probeon 08-13-2017 Protein mass conc SEE BELOW Normal [facility] Comment on above: Result Comment: SPEC IMEN: BLOOD - [id number] INFORMATION:TEST: FISH Analysis of the Di[place]/VCFS Region [...] Metaphase images: 2The Vysis LSI DARREN Spectrum [place] Probe contains the DARREN gene (3'non-coding region of TUPLE1, A82D541, and W75S0779. The Vysis LSI ARSAspectrum Green Probe includes [...] performance characteristics determinedby the Cytogenetics Laboratory of [facility]. It hasnot been cleared or approved by [...] FCCMG 08/16/2017 Performed By: #### F MARIA ####[facility] of [address] [phone] Progress Noteon 08-13-2017 [employer] Authentication Interface Message Text Met with patient [...] understanding of findingsWork History: unemployed. 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 Pt plans to deliver [place] with [place] [facility]. Currently with Dr. 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 ACHP list provided and discussed [...] was spent counseling and coordinating care. Normal [facility] Chicken [employer]utter Authentication Interface Message Text Thank you for [...] size. There was a patent foramen ovale, pbkgibjty-kr-ijdi shunt.Tricuspid valve:Normal tricuspid valve. There was normal [...] 60 minutes spent on the encounter. Normal [facility] Progress Noteon 07-18-2017 [employer] Authentication Interface Message Text [facility]- MEDICINE CONSULTReferring/Requestin g Provider: VINI [...] no palpitations. She usually doesnot see a teradata developer, but did have a recent echo due [...] Stroke Maternal Grandmother Heart Disease Maternal Grandmother [place] Clotting Disorder Maternal Grandfather Miscarriages / Stillbirths [...] as a child 07/18/2017 Consider evaluation with professor of social work to assess for any needs duringpregnancy or after. Will have genetic consult with [facility] evaluation. cardiac anomaly complicating , antepartum 07/18/2017 Dilated aortic root seen on ultrasound along with large umbilical cordvarix, dolichocephaly DW Dr. Zazueta, verbal order to refer to [facility] Will be scheduled with pediatric cardiology. Also, patient and family members have a history of learning disabilities,including an individual learning plan in school. She will talk to her familymembers and bring as much information as is available for her genetics consult.She has transportation to [place] and is willing [facility].The total patient time of the visit was 30 minutes, of which was greater than50% of the time was spent counseling and coordinating care. Normal [facility] IGP W/hpv Rfx [id number] 05-07 Diagnosis: See Ref Lab Report Normal [facility] Comment on above: Order Comment: Thin Prep. Performed By: #### 2 [id number] ####KADEN [address] [place] [address] C Urineon 05-03-2017 C Urine Final Report: Normal skin alonso isolated Normal [facility] Comment on above: Performed By: #### 2 251529 ####KADENMorelia BairdUmoGizp[address] [place] [address] RPRon 05-03-2017 RPR Ql Non-Reactive Normal Non-Reactiv e [facility] Comment on above: Performed By: #### 2 741153 ####KADENMorelia [address]airdSeoIcdp[address] [place] [address] Hep Bs Agon 05-02-2017 BSA (Body Surface Area) Negative Normal Negative [facility] Comment on above: Result Comment: Perf ormed At: [facility] [address] [id number] Vincent PhD Ph:[phone] Performed By: #### 2 [id number] ####KADENMorelia BairdNeuLkqq[address] [place] [address] ABO/Rh Echoon 05-01-2017 ABO/Rh E Interp... Positive Normal [facility] Comment on above: Performed By: #### 2 651810 ####KADEN [address] [place] [address] Antibody Screen Cap...on Screen Interp... Negative Normal [facility] Comment on above: Performed By: #### 2 371266 ####KADENMorelia BairdCukFjnt[address] [place] [address] Auto Diffon 05-01-2017 Basophils Auto #/vol (Bld) 0.0 E3/mcL Normal 0.0-0.2 [facility] Comment on above: Order Comment: Order Added by Discern Expert. Performed By: #### 2 [id number] ####KADEN Urinalysis Manual Zvphjatrxk7020 [place] [address] Basophils/100 WBC Auto (Bld) 0.4 % Normal 0.0-2.0 [facility] Comment on above: Order Comment: Order Added by Discern Expert. Performed By: #### 2 [id number] ####KADEN Urinalysis Manual [address] [place] [address] Eos Absolute 0.1 E3/mcL Normal 0.0-0.7 [facility] Comment on above: Order Comment: Order Added by Discern Expert. Performed By: #### 2 055844 ####KADEN Urinalysis Manual Uctvpejgyk[address] [place] [address] Eosinophils/100 leukocytes 0.7 % Normal 0.0-11.0 [facility] Comment on above: Order Comment: Order Added by Discern Expert. Performed By: #### 2 [id number] ####KADEN Urinalysis Manual Eujyikfrra[address] [place] [address] Lymphocytes 1.8 E3/mcL Normal 1.2-3.4 [facility] Comment on above: Order Comment: Order Added by Discern Expert. Performed By: #### 2 054072 ####KADEN Urinalysis Manual Blvptpkimk[address] [place] [address] Lymphocytes/100 leukocytes 17.1 % Low 20.0-55.0 [facility] Comment on above: Order Comment: Order Added by Discern Expert. Performed By: #### 2 552655 ####KADEN Urinalysis Manual Aogilvwcrc019[address] [place] [address] [place] Absolute 0.5 E3/mcL Normal 0.0-0.7 [facility] Comment on above: Order Comment: Order Added by Discern Expert. Performed By: #### 2 250172 ####KADEN Urinalysis Manual Lepywqxvwu[address] [place] [address] Monocytes/100 leukocytes 5.0 % Normal 0.0-10.0 [facility] Comment on above: Order Comment: Order Added by Discern Expert. Performed By: #### 2 294579 ####KADEN Urinalysis Manual Bcoqli[address] [place], [place] [id number] Neutro Absolute 8.0 E3/mcL High 1.4-6.5 [facility] Comment on above: Order Comment: Order Added by Discern Expert. Performed By: #### 2 120350 ####KADEN Urinalysis Manual Hlhybnwukg[address] [place] [address] Neutro Auto 76.8 % High 37.0-75.0 [facility] Comment on above: Order Comment: Order Added by Discern Expert. Performed By: #### 2 908725 ####KADEN Urinalysis Manual Mebgajeatf276[address] [place] [address] CBC w/ Auto Diffon 7 Erythrocyte distribution width Auto Ratio (RBC) 15.2 % High 11.5-14.5 [facility] Comment on above: Performed By: #### 2 821336 ####KADEN Urinalysis Manual Fukaklbskm49380[address] [place] [address] Erythrocytes (RBC) 4.90 E6/mcL Normal 3.90-5.40 [facility] Comment on above: Performed By: #### 2 131135 ####KADEN Urinalysis Manual Ofcbtgywmb324[address] [place] [address] Hematocrit (HCT) 41.1 % Normal 36.0-48.0 [facility] Comment on above: Performed By: #### 2 910932 ####KADEN Urinalysis Manual Rlrckcbpcs224[address] [place] [address] Hemoglobin mass conc (Bld) 13.5 g/dL Normal 12.0-16.0 [facility] Comment on above: Performed By: #### 2 183333 ####KADEN Urinalysis Manual Buuqswzqso[address] [place] [address] MCH 27.5 pg Normal 27.0-31.0 [facility] Comment on above: Performed By: #### 2 928426 ####KADEN Urinalysis Manual Ljgqiqxtrz48[address] [place] [address] MCHC mass conc (RBC) 32.8 g/dL Low 33.0-37.0 [facility] Comment on above: Performed By: #### 2 327216 ####KADEN Urinalysis Manual Aadievkajz7637[address] [place] [address] MCV 83.9 fL Normal 78.0-100.0 [facility] Comment on above: Performed By: #### 2 642437 ####KADEN Urinalysis Manual Oxwvliyrho[address] [place] [address] Platelet mean volume (PMV) 8.0 fL Normal 7.4-11.0 [facility] Comment on above: Performed By: #### 2 016265 ####K[place]EN [place] [address] Platelets 246 E3/mcL Normal 130-400 [facility] Comment on above: Performed By: #### 2 355851 ####KADEN Urinalysis Manual [place] [id number] WBC (Leukocytes) 10.4 E3/mcL Normal 3.6-11.0 [facility] Comment on above: Performed By: #### 2 705646 ####[place] [address] Chlamydia GC by PCRon 2016 Chlamydia by PCR. Not Detected Normal Not Detected [facility] Comment on above: Result Comment: Xper t CT/NG Assay performance has not been evaluated in patients less than 14 years of age. Performed By: #### 2 596768 ####KADEN PpnLfuk4957 [place] [address] Gonorrhoeae by PCR Not Detected Normal Not Detected [facility] Comment on above: Result Comment: Xper t CT/NG Assay performance has not been evaluated in patients less than 14 years of age. Performed By: #### 2 689163 ####KADEN BairdBwoUgnm0256 [place] [address] HIV-1/2 Ag/Abon 05-01-2017 HIV-1/2 Ag/Ab Non-Reactive Normal Non-Reactiv e [facility] Comment on above: Performed By: #### 2 624165 ####KADEN Urinalysis Manual [place] [id number] Rubella IgG Lvlon 05-01-2017 Rubella IgG Lvl 50.8 (POS) Normal [facility] Comment on above: Result Comment: <10I U/ml NON REACTIVE: NOT DLBMBF00-31 IU/ml RUBELLA SPECIFIC AB PRESENT, EVALUATEFURTHER TO DETERMINE IMMUNE STATUS >15 IU/ml REACTIVE, IMMUNE Performed By: #### 2 504918 ####KADEN BairdAmsGlom1880 [place] [address] Auto Diffon 04-22-2017 Basophils Auto #/vol (Bld) 0.1 E3/mcL Normal 0.0-0.2 [facility] Comment on above: Order Comment: Order Added by Discern Expert. Performed By: #### 2 583703 ####KADEN Urinalysis Manual Wxhcffzlzu[address] [place] [address] Basophils/100 WBC Auto (Bld) 0.6 % Normal 0.0-2.0 [facility] Comment on above: Order Comment: Order Added by Discern Expert. Performed By: #### 2 042218 ####KADEN Urinalysis Manual Irhtdykulv157[address] [place] [address] Eos Absolute 0.0 E3/mcL Normal 0.0-0.7 [facility] Comment on above: Order Comment: Order Added by Discern Expert. Performed By: #### 2 552496 ####KADEN Urinalysis Manual Skoczwiycy[address] [place] [address] Eosinophils/100 leukocytes 0.2 % Normal 0.0-11.0 [facility] Comment on above: Order Comment: Order Added by Discern Expert. Performed By: #### 2 939548 ####K[place] [address] Lymphocytes 1.5 E3/mcL Normal 1.2-3.4 [facility] Comment on above: Order Comment: Order Added by Discern Expert. Performed By: #### 2 309638 ####KADEN Urinalysis Manual Nvevisoqhx3359[address] [place] [address] Lymphocytes/100 leukocytes 10.8 % Low 20.0-55.0 [facility] Comment on above: Order Comment: Order Added by Discern Expert. Performed By: #### 2 684199 ####KADEN Urinalysis Manual Guuergzwbs[address] [place] [address] [place] Absolute 0.6 E3/mcL Normal 0.0-0.7 [facility] Comment on above: Order Comment: Order Added by Discern Expert. Performed By: #### 2 259402 ####KADEN Urinalysis Manual Pmivpyhhda4219[address] [place] [address] Monocytes/100 leukocytes 4.4 % Normal 0.0-10.0 [facility] Comment on above: Order Comment: Order Added by Discern Expert. Performed By: #### 2 618927 ####KADEN Urinalysis Manual Jmpxmhbnbm720[address] [place] [address] Neutro Absolute 11.3 E3/mcL High 1.4-6.5 [facility] Comment on above: Order Comment: Order Added by Discern Expert. Performed By: #### 2 644719 ####KADEN Urinalysis Manual Xjrtyitjqo0812[address] [place] [address] Neutro Auto 84.0 % High 37.0-75.0 [facility] Comment on above: Order Comment: Order Added by Discern Expert. Performed By: #### 2 955759 ####KADEN Urinalysis Manual Tffbxtgods8009[address] [place] [address] BMPon 04-22-2017 BUN/Creatinine Ratio Unable to calc Normal 5.4-30.0 [facility] Comment on above: Performed By: #### 2 182001 ####KADEN Urinalysis Manual Zrqdqxrssi512[address] [place] [address] Creatinine mg/dL Low 0.6-1.3 [facility] Comment on above: Performed By: #### 2 913660 ####KADEN Urinalysis Manual Lzgbnpoaxw2829[address] [place] [address] Urea nitrogen 7 mg/dL Normal 7-18 [facility] Comment on above: Performed By: #### 2 037176 ####KADEN Urinalysis Manual Psmzusgsqq37380[address] [place] [address] Calcium 9.6 mg/dL Normal 8.4-10.2 [facility] Comment on above: Performed By: #### 2 814279 ####KADEN Urinalysis Manual Qsfvdmcntf6414[address] [place] [address] Chloride 103 mmol/L Normal 98-107 [facility] Comment on above: Performed By: #### 2 131134 ####KADEN Urinalysis Manual Clnsqqgnuj5879[address] [place] [address] CO2 21.7 mmol/L Low 24.0-30.0 [facility] Comment on above: Performed By: #### 2 536308 ####KADEN Urinalysis Manual Qhpgsuutvk3562 [place] [address] Glucose mass conc 89 mg/dL Normal 70-99 [facility] Comment on above: Performed By: #### 2 089883 ####KADEN Urinalysis Manual Mqlqwlmyxd765[address] [place] [address] Potassium molar conc 3.6 mmol/L Normal 3.5-5.1 [facility] Comment on above: Performed By: #### 2 158873 ####KADEN Urinalysis Manual Wcpuqzpsrn205[address] [place] [address] Sodium 136 mmol/L Normal 136-145 [facility] Comment on above: Performed By: #### 2 865054 ####KADEN Urinalysis Manual Qrmikoafge5515[address] [place] [address] CBC w/ Auto Diffon 7 Erythrocyte distribution width Auto Ratio (RBC) 14.8 % High 11.5-14.5 [facility] Comment on above: Performed By: #### 2 542453 ####KADEN Urinalysis Manual Yzghoaydmd543[address] [place] [address] Erythrocytes (RBC) 4.96 E6/mcL Normal 3.90-5.40 [facility] Comment on above: Performed By: #### 2 363623 ####KADEN Urinalysis Manual Mopebednqr018[address] [place] [address] Hematocrit (HCT) 40.9 % Normal 36.0-48.0 [facility] Comment on above: Performed By: #### 2 143565 ####KADEN Urinalysis Manual Rsenahijdi[address] [place], [place] [address] Hemoglobin mass conc (Bld) 13.5 g/dL Normal 12.0-16.0 [facility] Comment on above: Performed By: #### 2 021602 ####KADEN Urinalysis Manual Uhxpwbiltq8589[address] [place] [address] MCH 27.2 pg Normal 27.0-31.0 [facility] Comment on above: Performed By: #### 2 863619 ####KADEN Urinalysis Manual Zpakhzipat0153 [place] [address] MCHC mass conc (RBC) 33.0 g/dL Normal 33.0-37.0 [facility] Comment on above: Performed By: #### 2 552909 ####KADEN Urinalysis Manual Uoivrcyone696[address] [place] [address] MCV 82.4 fL Normal 78.0-100.0 [facility] Comment on above: Performed By: #### 2 324405 ####KADEN Urinalysis Manual Emzxyeilje719[address] [place] [address] Platelet mean volume (PMV) 8.0 fL Normal 7.4-11.0 [facility] Comment on above: Performed By: #### 2 780061 ####KADEN Urinalysis Manual Lqtlevzhjy5915[address] [place] [address] Platelets 237 E3/mcL Normal 130-400 [facility] Comment on above: Performed By: #### 2 090674 ####KADEN Urinalysis Manual Xnfbowcdbh817[address] [place] [address] WBC (Leukocytes) 13.5 E3/mcL High 3.6-11.0 [facility] Comment on above: Performed By: #### 2 178527 ####KADEN Urinalysis Manual Dgphplbjne233[address] [place] [address] UA Completeon 04-22-2017 UA Blood Negative Normal Negative [facility] Comment on above: Performed By: #### 2 500930 ####KADEN Urinalysis Manual Mwnzldgvfd509[address] [place] [address] UA Ascorbic Acid 40 mg/dL High <=19 [facility] Comment on above: Performed By: #### 2 898110 ####KADEN Urinalysis Manual Kgbreskcfy[address] [place] [address] UA Bacteria 3+ /HPF Abnormal None [facility] Comment on above: Performed By: #### 2 443693 ####KADEN Urinalysis Manual Kotcdasbgm[address] [place] [address] UA Clarity SltCloudy Abnormal Clear [facility] Comment on above: Performed By: #### 2 546261 ####KADEN Urinalysis Manual Vffuviukok[address] [place] [address] UA Leuk Est Negative Normal Negative [facility] Comment on above: Performed By: #### 2 588575 ####KADEN Urinalysis Manual Lwaylswmwb859[address] [place] [address] UA Mucous Few Abnormal Trace [facility] Comment on above: Performed By: #### 2 533763 ####KADEN Urinalysis Manual Uineuianta388[address] [place] [address] UA Nitrite Negative Normal Negative [facility] Comment on above: Performed By: #### 2 424473 ####KADEN Urinalysis Manual Sbsncjdjlf8919[address] [place] [address] UA pH 8.0 Normal 4.6-8.0 [facility] Comment on above: Performed By: #### 2 980166 ####KADEN Urinalysis Manual Crhowggitz2425[address] [place] [address] UA Protein Negative Normal Negative [facility] Comment on above: Performed By: #### 2 729340 ####KADEN Urinalysis Manual Jdncpksmmq366[address] [place] [address] UA Spec Grav 1.012 Normal 1.003-1.030 [facility] Comment on above: Performed By: #### 2 645395 ####KADEN Urinalysis Manual Phfeivtuuw4427[address] [place] [address] UA Squam Epithelial 0-5 Normal 0-5 [facility] Comment on above: Performed By: #### 2 533927 ####KADEN Urinalysis Manual Bvofspvkdc426[address] [place] [address] UA Urobilinogen Negative Normal [facility] Comment on above: Performed By: #### 2 470913 ####KADEN Urinalysis Manual Dnoorfgfcq410[address] [place] [address] UA WBC 0-5 Normal 0-5 [facility] Comment on above: Performed By: #### 2 993822 ####KADEN Urinalysis Manual Jwtbehmoow[address] [place], [place] [address] Urine, color Yellow Normal Yellow [facility] Comment on above: Performed By: #### 2 977696 ####KADEN Urinalysis Manual Brcajdkays3501 [place] [address] Urine, glucose Negative Normal Negative [facility] Comment on above: Performed By: #### 2 473751 ####KADEN Urinalysis Manual Rdfpkuxntf416[address] [place] [address] Urine, ketones presence 1+ Abnormal Negative [facility] Comment on above: Performed By: #### 2 684228 ####KADEN Urinalysis Manual Syvfimajoi743[address] [place] [address] Urine, urobilinogen Negative Normal Negative [facility] Comment on above: Performed By: #### 2 483776 ####KADEN Urinalysis Manual Lgospdkbcg756[address] [place] [address] eGFRon 04-22-2017 eGFR AA >60 Normal [facility] Comment on above: Order Comment: Order added by Discern Expert. Performed By: #### 2 335240 ####KADEN Urinalysis Manual Fjcvrzxifp179[address] [place] [address] eGFR (non-black) mL/min/{1.73_m2} Normal [facility] Comment on above: Order Comment: Order added by Discern Expert. Performed By: #### 2 242960 ####KADEN Urinalysis Manual Jvtptqoidc910[address] [place] [address] C Urineon 04-20-2017 C Urine Final Report: Normal skin alonso isolated Normal [facility] Comment on above: Performed By: #### 2 869627 ####KADEN Urinalysis Manual Lyfohixeyr965[address] [place] [address] BMPon 04-18-2017 BUN/Creatinine Ratio 15.0 ratio Normal 5.4-30.0 [facility] Comment on above: Performed By: #### 2 233018 ####KADEN QurPaba0405 [place] [address] Creatinine 0.6 mg/dL Normal 0.6-1.3 [facility] Comment on above: Performed By: #### 2 652867 ####KADEN ClrVzuy2608 [place] [address] Urea nitrogen 9 mg/dL Normal 7-18 [facility] Comment on above: Performed By: #### 2 188490 ####KADEN AmeKjpq1160 [place] [address] Calcium 9.6 mg/dL Normal 8.4-10.2 [facility] Comment on above: Performed By: #### 2 611875 ####KADEN PtxEjzk7597 [place] [address] Chloride 102 mmol/L Normal 98-107 [facility] Comment on above: Performed By: #### 2 401651 ####KADEN UnzGvuy6066 [place] [address] CO2 23.3 mmol/L Low 24.0-30.0 [facility] Comment on above: Performed By: #### 2 375890 ####KADEN HbxUpoc1848 [place] [address] Glucose mass conc 93 mg/dL Normal 70-99 [facility] Comment on above: Performed By: #### 2 933174 ####KADEN CopJkgg7178 [place] [address] Potassium molar conc 3.5 mmol/L Normal 3.5-5.1 [facility] Comment on above: Performed By: #### 2 140269 ####KADEN JcyYbet5037 [place] [address] Sodium 136 mmol/L Normal 136-145 [facility] Comment on above: Performed By: #### 2 431456 ####KADEN MmvIhue1862 [place] [address] UA Completeon 04-18-2017 UA Blood Negative Normal Negative [facility] Comment on above: Performed By: #### 2 659468 ####KADEN Urinalysis Manual Hcnpsjcltj1366 [place] [address] UA Amorph Chastity 2+ /HPF Abnormal None [facility] Comment on above: Performed By: #### 2 708427 ####KADEN Urinalysis Manual Vhvysjpxno9579 [place] [id number] UA Ascorbic Acid 40 mg/dL High <=19 [facility] Comment on above: Performed By: #### 2 289168 ####KADEN Urinalysis Manual Tfhcomgnlr8128 [place] [address] UA Clarity Cloudy Abnormal Clear [facility] Comment on above: Performed By: #### 2 797599 ####KADEN Urinalysis Manual Ttjxsgnces9[address] [place] [address] UA Leuk Est Negative Normal Negative [facility] Comment on above: Performed By: #### 2 638563 ####KADEN Urinalysis Manual Njujujhqkd315[address] [place] [address] UA Mucous Trace Abnormal Trace [facility] Comment on above: Performed By: #### 2 529092 ####KADEN Urinalysis Manual Vstazknfca66110[address] [place] [address] UA Nitrite Negative Normal Negative [facility] Comment on above: Performed By: #### 2 153725 ####KADEN Urinalysis Manual Qmjacwxnsf205804 [place] [address] UA pH 7.0 Normal 4.6-8.0 [facility] Comment on above: Performed By: #### 2 463706 ####KADEN Urinalysis Manual Rjzgulzlco549[address] [place] [address] UA Protein Negative Normal Negative [facility] Comment on above: Performed By: #### 2 246988 ####KADEN Urinalysis Manual Olzqnglljt40[address] [place] [address] UA Spec Grav 1.018 Normal 1.003-1.030 [facility] Comment on above: Performed By: #### 2 139976 ####KADEN Urinalysis Manual Ruscffobwl[address] [place] [address] UA Squam Epithelial 0-5 Normal 0-5 [facility] Comment on above: Performed By: #### 2 700488 ####KADEN Urinalysis Manual Hrdrdkjany[address] [place] [address] UA Urobilinogen Negative Normal [facility] Comment on above: Performed By: #### 2 613706 ####KADEN Urinalysis Manual Qmwtzmsozj673[address] [place] [address] Urine, color Yellow Normal Yellow [facility] Comment on above: Performed By: #### 2 971856 ####KADEN Urinalysis Manual Gtcacnqfeq258[address] [place] [address] Urine, glucose Negative Normal Negative [facility] Comment on above: Performed By: #### 2 390758 ####KADEN Urinalysis Manual Urmnpuhyrf6[address] [place] [address] Urine, ketones presence 2+ Abnormal Negative [facility] Comment on above: Performed By: #### 2 229231 ####KADEN Urinalysis Manual Vfddlvstbu49110[address] [place] [address] Urine, urobilinogen Negative Normal Negative [facility] Comment on above: Performed By: #### 2 181693 ####KADEN Urinalysis Manual Pvckepfbia[address] [place] [address] eGFRon 04-18-2017 eGFR (non-black) mL/min/{1.73_m2} Normal [facility] Comment on above: Order Comment: Order added by Discern Expert. Performed By: #### 1 [id number] ####KADENMorelia BairdRlsWfxi7294 [place] [address] eGFR AA >60 Normal [facility] Comment on above: Order Comment: Order added by Discern Expert. Performed By: #### 1 [id number] ####KADEN AwvMutq8323 [place] [address] Auto Diffon 04-11-2017 Basophils Auto #/vol (Bld) 0.1 E3/mcL Normal 0.0-0.2 [facility] Comment on above: Order Comment: Order Added by Discern Expert. Performed By: #### 2 557021 ####KADENMorelia BairdWuhItuh1659 [place] [address] Basophils/100 WBC Auto (Bld) 0.7 % Normal 0.0-2.0 [facility] Comment on above: Order Comment: Order Added by Discern Expert. Performed By: #### 2 454335 ####KADEN VdsTdhl4382 [place] [address] Eos Absolute 0.0 E3/mcL Normal 0.0-0.7 [facility] Comment on above: Order Comment: Order Added by Discern Expert. Performed By: #### 2 513744 ####KADENMorelia BairdRucEcfd1635 [place] [address] Eosinophils/100 leukocytes 0.1 % Normal 0.0-11.0 [facility] Comment on above: Order Comment: Order Added by Discern Expert. Performed By: #### 2 620968 ####KADEN Luceroo1025 [place] [address] Lymphocytes 1.5 E3/mcL Normal 1.2-3.4 [facility] Comment on above: Order Comment: Order Added by Discern Expert. Performed By: #### 2 635658 ####KADEN Luceroo1025 [place] [address] Lymphocytes/100 leukocytes 17.2 % Low 20.0-55.0 [facility] Comment on above: Order Comment: Order Added by Discern Expert. Performed By: #### 2 710453 ####KADEN BairdBuyBgnm3536 [place] [address] [place] Absolute 0.6 E3/mcL Normal 0.0-0.7 [facility] Comment on above: Order Comment: Order Added by Discern Expert. Performed By: #### 2 930613 ####KADEN Luceroo[address]25 [place] [address] Monocytes/100 leukocytes 6.6 % Normal 0.0-10.0 [facility] Comment on above: Order Comment: Order Added by Discern Expert. Performed By: #### 2 921416 ####KADEN BairdKkzDuxc0327 [place] [address] Neutro Absolute 6.7 E3/mcL High 1.4-6.5 [facility] Comment on above: Order Comment: Order Added by Discern Expert. Performed By: #### 2 440625 ####KADEN BairdYkkDtms4734 [place] [address] Neutro Auto 75.4 % High 37.0-75.0 [facility] Comment on above: Order Comment: Order Added by Discern Expert. Performed By: #### 2 375501 ####KADEN BairdYpxZlro6887 [place] [address] BMPon 04-11-2017 BUN/Creatinine Ratio 12.9 ratio Normal 5.4-30.0 [facility] Comment on above: Performed By: #### 2 976027 ####KADEN BairdWqjUfgs3690 [place] [address] Creatinine 0.7 mg/dL Normal 0.6-1.3 [facility] Comment on above: Performed By: #### 2 072744 ####KADEN SewPrja4617 [place] [address] Urea nitrogen 9 mg/dL Normal 7-18 [facility] Comment on above: Performed By: #### 2 820694 ####KADEN VqkLlnh7832 [place] [address] Calcium 9.5 mg/dL Normal 8.4-10.2 [facility] Comment on above: Performed By: #### 2 729411 ####KADEN IecKjlf3931 [place] [address] Chloride 105 mmol/L Normal 98-107 [facility] Comment on above: Performed By: #### 2 124713 ####KADEN AfeAjpr3497 [place] [address] CO2 22.5 mmol/L Low 24.0-30.0 [facility] Comment on above: Performed By: #### 2 426476 ####KADEN ExnFfsn0153 [place] [address] Glucose mass conc 92 mg/dL Normal 70-99 [facility] Comment on above: Performed By: #### 2 029001 ####KADEN RoqSvzn7354 [place] [address] Potassium molar conc 3.6 mmol/L Normal 3.5-5.1 [facility] Comment on above: Performed By: #### 2 573004 ####KADEN ZxlCliz4459 [place] [address] Sodium 137 mmol/L Normal 136-145 [facility] Comment on above: Performed By: #### 2 [id number] ####KADEN ZohJqmg4932 [place] [address] BhCG Quanton 04-11-2017 Beta hCG Qnt 8564.0 mIU/m Normal [facility] Comment on above: Result Comment: FEMA LE (NON-) & MALE <3 BORDERLINE 3 - 5 SUGGEST REPEAT TESTING FEMALE () 1 D - 1 WK 5 - 50 1 - 2 WK 50 - 500 2 - 3 WK 100 - 5000 3 - 4 WK 500 - 82532 4 - 5 WK 1000 - 88733 5 - 6 WK 77578 - 983392 6 - 8 WK 08441 - 996402 2 - 3 [place] [address] - 773349 Performed By: #### 2 [id number] ####KADEN GbaJwhs0484 [place] [address] CBC w/ Auto Diffon Erythrocyte distribution width Auto Ratio (RBC) 13.9 % Normal 11.5-14.5 [facility] Comment on above: Performed By: #### 2 [id number] ####KADEN ZnjWcys6509 [place] [address] Erythrocytes (RBC) 4.63 E6/mcL Normal 3.90-5.40 [facility] Comment on above: Performed By: #### 2 [id number] ####KADEN RmeVywt0172 [place] [address] Hematocrit (HCT) 38.2 % Normal 36.0-48.0 [facility] Comment on above: Performed By: #### 2 [id number] ####KADEN IvsLekw4591 [place] [address] Hemoglobin mass conc (Bld) 12.6 g/dL Normal 12.0-16.0 [facility] Comment on above: Performed By: #### 2 [id number] ####KADEN RkmRkra2231 [place] [address] MCH 27.2 pg Normal 27.0-31.0 [facility] Comment on above: Performed By: #### 2 [id number] ####KADEN BairdKrzSltz8290 [place] [address] MCHC mass conc (RBC) 33.0 g/dL Normal 33.0-37.0 [facility] Comment on above: Performed By: #### 2 [id number] ####KADEN BairdAfwAolx5363 [place] [address] MCV 82.6 fL Normal 78.0-100.0 [facility] Comment on above: Performed By: #### 2 [id number] ####KADEN NhqCqcn6145 [place] [address] Platelet mean volume (PMV) 8.0 fL Normal 7.4-11.0 [facility] Comment on above: Performed By: #### 2 [id number] ####KADEN BairdHfpHsjr2437 [place] [address] Platelets 233 E3/mcL Normal 130-400 [facility] Comment on above: Performed By: #### 2 [id number] ####KADEN Luceroo1025 [place] [address] WBC (Leukocytes) 9.0 E3/mcL Normal 3.6-11.0 [facility] Comment on above: Performed By: #### 2 [id number] ####KADEN GezGmrn7162 [place] [address] UA Completeon 04-11-2017 UA Blood Negative Normal Negative [facility] Comment on above: Result Comment: High concentration of Ascorbic Acid present in urine. This may cause False Negative Occ Blood. Review microscopic results and patient's clinical symptoms. Performed By: #### 8 [id number] ####KADEN Urinalysis Automated Pcnwqwqhcm2259 [place] [address] UA Amorph Chastity 1+ /HPF Abnormal None [facility] Comment on above: Performed By: #### 8 [id number] ####KADEN Urinalysis Automated [address] [place] [address] UA Ascorbic Acid 40 mg/dL High <=19 [facility] Comment on above: Performed By: #### 8 [id number] ####KADEN Urinalysis Automated Tiqclyyomp2711 [place] [address] UA Bacteria Trace Abnormal None [facility] Comment on above: Performed By: #### 8 [id number] ####KADEN Urinalysis Automated Hgndapowxf2148 [place] [address] UA Clarity Cloudy Abnormal Clear [facility] Comment on above: Performed By: #### 8 [id number] ####KADEN Urinalysis Automated Aybqgrkvuu5529 [place] [id number] UA Leuk Est Negative Normal Negative [facility] Comment on above: Performed By: #### 8 [id number] ####KADEN Urinalysis Automated Qhhaegtitx6921 [place] [address] UA Mucous Few Abnormal Trace [facility] Comment on above: Performed By: #### 8 [id number] ####KADEN Urinalysis Automated Xqpphooyzo0091 [place] [address] UA Nitrite Negative Normal Negative [facility] Comment on above: Performed By: #### 8 [id number] ####KADEN Urinalysis Automated Jceyvgoruq7918 [place] [address] UA pH 7.0 Normal 4.6-8.0 [facility] Comment on above: Performed By: #### 8 [id number] ####KADEN Urinalysis Automated Qtuhnwwvyv2333 [place] [address] UA Protein Negative Normal Negative [facility] Comment on above: Performed By: #### 8 [id number] ####KADEN Urinalysis Automated [address] [place] [address] UA Spec Grav 1.025 Normal 1.003-1.030 [facility] Comment on above: Performed By: #### 8 [id number] ####KADEN Urinalysis Automated [address]ty[address] [place] [address] UA Squam Epithelial 5-10 Abnormal 0-5 [facility] Comment on above: Performed By: #### 8 [id number] ####KADEN Urinalysis Automated X[address] [place] [address] UA Urobilinogen 2.0 mg/dL Abnormal [facility] Comment on above: Performed By: #### 8 [id number] ####KADEN Urinalysis Automated Bsavadixug1194 [place] [address] Urine, color Yellow Normal Yellow [facility] Comment on above: Performed By: #### 8 [id number] ####KADEN Urinalysis Automated Bnjnypcplw0515 [place] [address] Urine, erythrocytes 0-3 Normal 0-3 [facility] Comment on above: Performed By: #### 8 [id number] ####KADEN Urinalysis Automated Ob[address]kmamed[address] [place] [address] Urine, glucose Negative Normal Negative [facility] Comment on above: Performed By: #### 8 [id number] ####KADEN Urinalysis Automated [address]zy[address] [place] [address] Urine, ketones presence 2+ Abnormal Negative [facility] Comment on above: Performed By: #### 8 [id number] ####KADEN Urinalysis Automated Qievtstbxh0123 [place] [address] Urine, urobilinogen Negative Normal Negative [facility] Comment on above: Performed By: #### 8 [id number] ####KADEN Urinalysis Automated Yqjzirjiyq8319 [place] [address] eGFRon 04-11-2017 eGFR (non-black) mL/min/{1.73_m2} Normal [facility] Comment on above: Order Comment: Order added by Discern Expert. Performed By: #### 1 [id number] ####KADEN BwbHljr3072 [place] [address] eGFR AA >60 Normal [facility] Comment on above: Order Comment: Order added by Discern Expert. Performed By: #### 1 [id number] ####KADEN AozEfof3139 [place] [address] U BhCG Qlton 03-20-2017 HCG.beta subunit Qn Negative Normal Neg [facility] Comment on above: Performed By: #### 2 [id number] ####KADEN Urinalysis Manual [address]jc[address] [place] [address] UA Completeon 03-20-2017 UA Blood Negative Normal Negative [facility] Comment on above: Performed By: #### 8 [id number] ####KADEN Urinalysis Automated Vjjommcris9377 [place] [address] UA Amorph Chastity 1+ /HPF Abnormal None [facility] Comment on above: Performed By: #### 8 [id number] ####KADEN Urinalysis Automated Mzkdcwpfnr4930 [place] [address] UA Bacteria 2+ /HPF Abnormal None [facility] Comment on above: Performed By: #### 8 [id number] ####KADEN Urinalysis Automated Hwfsrfurth3101 [place] [address] UA Clarity Cloudy Abnormal Clear [facility] Comment on above: Performed By: #### 8 [id number] ####KADEN Urinalysis Automated Gtggjnvjno3682 [place] [address] UA Leuk Est 1+ Abnormal Negative [facility] Comment on above: Performed By: #### 8 [id number] ####KADEN Urinalysis Automated Zzfnvebrtn1652 [place] [address] UA Mucous Occasional Abnormal Trace [facility] Comment on above: Performed By: #### 8 [id number] ####KADEN Urinalysis Automated Dnpcdfjsbv9534 [place] [address] UA Nitrite Negative Normal Negative [facility] Comment on above: Performed By: #### 8 [id number] ####KADEN Urinalysis Automated Prlyzfxgch0484 [place] [address] UA pH 6.0 Normal 4.6-8.0 [facility] Comment on above: Performed By: #### 8 [id number] ####KADEN Urinalysis Automated [address]fngtmvemx[address] [place] [address] UA Protein 1+ Abnormal Negative [facility] Comment on above: Performed By: #### 8 [id number] ####KADEN Urinalysis Automated [address]iope[address] [place] [address] UA Spec Grav 1.019 Normal 1.003-1.030 [facility] Comment on above: Performed By: #### 8 [id number] ####KADEN Urinalysis Automated [address] [place] [address] UA Squam Epithelial 5-10 Abnormal 0-5 [facility] Comment on above: Performed By: #### 8 [id number] ####KADEN Urinalysis Automated Hcwzikjijp2727 [place] [address] UA Urobilinogen Negative Normal [facility] Comment on above: Performed By: #### 8 [id number] ####KADEN Urinalysis Automated Jdtfufpwiv7037 [place] [address] UA WBC >50 Abnormal 0-5 [facility] Comment on above: Performed By: #### 8 [id number] ####KADEN Urinalysis Automated [address] [place] [address] Urine, color Yellow Normal Yellow [facility] Comment on above: Performed By: #### 8 [id number] ####KADEN Urinalysis Automated Ovwnguqaqd6633 [place] [address] Urine, erythrocytes 5-10 Abnormal 0-3 [facility] Comment on above: Performed By: #### 8 [id number] ####KADEN Urinalysis Automated Uhpcudyhzt7891 [place] [address] Urine, glucose Negative Normal Negative [facility] Comment on above: Performed By: #### 8 [id number] ####KADEN Urinalysis Automated Chrwbxmzmd3586 [place] [address] Urine, ketones presence Negative Normal Negative [facility] Comment on above: Performed By: #### 8 [id number] ####KADEN Urinalysis Automated Drgkemxeoj7416 [place] [address] Urine, urobilinogen Negative Normal Negative [facility] Comment on above: Performed By: #### 8 [id number] ####KADEN Urinalysis Automated Cicgzocvrk8600 [place] [address] Vital Signs Date Time Vital Sign Value Performing Clinician Facility 02-11-2023 14:13-0400 Body height 165.1 cm SADAF Wyatt Work Phone: [facility] 02-11-2023 14:13-0400 Body temperature 97.9 [degF] SADAF Wyatt Work Phone: [facility] 02-11-2023 14:13-0400 Body weight 70.55 kg SADAF Wyatt Work Phone: [facility] 02-11-2023 14:13-0400 Diastolic blood pressure 80 mm[Hg] SADAF Wyatt Work Phone: [facility] 02-11-2023 14:13-0400 Heart rate 60 /min SADAF Wyatt Work Phone: [facility] 02-11-2023 14:13-0400 Respiratory rate 15 /min SADAF Wyatt Work Phone: [facility] 02-11-2023 14:13-0400 SaO2% (BldA) [Mass fraction] 99 % SADAF Wyatt Work Phone: [facility] 02-11-2023 14:13-0400 Systolic blood pressure 134 mm[Hg] FERMIN-Ventura Wyatt Work Phone: [facility] 02-08-2023 12:36-0400 Body height 165.1 cm SADAF Wyatt Work Phone: [facility] 02-08-2023 12:36-0400 Body temperature 98.2 [degF] FERMIN-Ventura Wyatt Work Phone: [facility] 02-08-2023 12:36-0400 Body weight 72.57 kg FERMIN-Ventura Wyatt Work Phone: [facility] 02-08-2023 12:36-0400 Diastolic blood pressure 84 mm[Hg] SADAF Wyatt Work Phone: [facility] 02-08-2023 12:36-0400 Heart rate 74 /min SADAF Wyatt Work Phone: [facility] 02-08-2023 12:36-0400 Respiratory rate 15 /min SADAF Wyatt Work Phone: [facility] 02-08-2023 12:36-0400 SaO2% (BldA) [Mass fraction] 98 % SADAF Wyatt Work Phone: [facility] 02-08-2023 12:36-0400 Systolic blood pressure 150 mm[Hg] SADAF Wyatt Work Phone: [facility] 12-19-2022 14:43-0400 Body temperature 96.9 [degF] SADAF Wyatt Work Phone: [facility] 12-19-2022 14:43-0400 Diastolic blood pressure 74 mm[Hg] SADAF Wyatt Work Phone: [facility] 12-19-2022 14:43-0400 Heart rate 59 /min SADAF Wyatt Work Phone: [facility] 12-19-2022 14:43-0400 Respiratory rate 18 /min PA-C Andie Wyatt Work Phone: [facility] 12-19-2022 14:43-0400 SaO2% (BldA) [Mass fraction] 100 % PA-C Andie Wyatt Work Phone: [facility] 12-19-2022 14:43-0400 Systolic blood pressure 115 mm[Hg] PA-C Andie Wyatt Work Phone: [facility] 12-19-2022 14:00-0400 Diastolic blood pressure 89 mm[Hg] PA-C Andie Wyatt Work Phone: [facility] 12-19-2022 14:00-0400 Heart rate 79 /min PA-C Andie Wyatt Work Phone: [facility] 12-19-2022 14:00-0400 Respiratory rate 16 /min PA-C Andie Wyatt Work Phone: [facility] 12-19-2022 14:00-0400 SaO2% (BldA) [Mass fraction] 99 % PA-C Andie Wyatt Work Phone: [facility] 12-19-2022 14:00-0400 Systolic blood pressure 150 mm[Hg] PA-C Andie Wyatt Work Phone: [facility] 12-19-2022 03:30-0400 Body height 165.1 cm PA-C Andie Wyatt Work Phone: [facility] 12-19-2022 03:30-0400 Body weight 72.2 kg PA-Ventura Wyatt Work Phone: [facility] 12-18-2022 23:07-0400 Body height 165.1 cm PA-C Andie Wyatt Work Phone: [facility] 12-18-2022 23:07-0400 Body weight 74.2 kg PA-C Andie Wyatt Work Phone: [facility] 12-18-2022 23:05-0400 Body temperature 98.5 [degF] PA-C Andie Wyatt Work Phone: [facility] 08-20-2022 14:31-0500 Body height 165.1 cm PA-Ventura Wyatt Work Phone: [facility] 08-20-2022 14:31-0500 Body temperature 98.9 [degF] SADAF Wyatt Work Phone: [facility] 08-20-2022 14:31-0500 Body weight 71.55 kg PA-Ventura Wyatt Work Phone: [facility] 08-20-2022 14:31-0500 Diastolic blood pressure 87 mm[Hg] PA-Ventura Wyatt Work Phone: [facility] 08-20-2022 14:31-0500 Heart rate 97 /min SADAF Wyatt Work Phone: [facility] 08-20-2022 14:31-0500 Respiratory rate 18 /min PA-Ventura Wyatt Work Phone: [facility] 08-20-2022 14:31-0500 SaO2% (BldA) [Mass fraction] 98 % PA-Ventura Wyatt Work Phone: [facility] 08-20-2022 14:31-0500 Systolic blood pressure 135 mm[Hg] SADAF Wyatt Work Phone: [facility] 02-08-2022 03:06-0400 Body weight 68.[address] CUONG ORTIZ . [facility] Comment on above: Performed By: #### AFPMAT #### [facility] [address] [place] [address] Dr. Juan Antonio Ibarra 02-05-2022 18:24-0400 Body height 165.1 cm PAZhao Wyatt Work Phone: [facility] 02-05-2022 18:24-0400 Body temperature 98.3 [degF] SADAF Wyatt Work Phone: [facility] 02-05-2022 18:24-0400 Body weight 67.9 kg SADAF Wyatt Work Phone: [facility] 02-05-2022 18:24-0400 Diastolic blood pressure 68 mm[Hg] SADAF Wyatt Work Phone: [facility] 02-05-2022 18:24-0400 Heart rate 92 /min SADAF Wyatt Work Phone: [facility] 02-05-2022 18:24-0400 Respiratory rate 18 /min SADAF Wyatt Work Phone: [facility] 02-05-2022 18:24-0400 SaO2% (BldA) [Mass fraction] 99 % SADAF Wyatt Work Phone: [facility] 02-05-2022 18:24-0400 Systolic blood pressure 125 mm[Hg] SADAF Wyatt Work Phone: [facility] Encounters Encounter Date Encounter Type Care Provider Facility Start: 07-03-2023 End: 07-03-2023 ambulatory CUONG Chadwick POLO [facility] Start: 07-03-2023 End: 07-03-2023 Telemedicine consultation with patient Rosaura Renee [facility] Work Phone: [facility] Comment on above: Family history of ge netic disorder (Primary Dx); Genetic testing; Fetus with trisomy 13, single gestation Start: 06-20-2023 End: 06-20-2023 ambulatory BARB KRAMER Not Available Start: 05-23-2023 End: 05-23-2023 ambulatory CUONG ORTIZ Not Available Start: 04-16-2023 ambulatory Cesar Clayton acility:[facility] Start: 02-11-2023 End: 02-11-2023 Emergency department patient visit Andie Wyatt Facility:[facility] Start: 02-11-2023 End: 02-11-2023 Emergency department patient visit SADAF Wyatt Work Phone: [facility] Work Phone: Start: 02-08-2023 End: 02-08-2023 Emergency department patient visit Andie Wyatt Facility:[facility] Start: 02-08-2023 End: 02-08-2023 Emergency department patient visit SADAF Wyatt Work Phone: [facility] Work Phone: Start: 12-19-2022 End: 12-19-2022 ambulatory Igor Ventura Facility:[facility] Start: 12-19-2022 End: 12-19-2022 Evaluation and management of inpatient FERMIN-Ventura Wyatt Work Phone: [facility] [employer] [facility] Work Phone: Start: 12-19-2022 End: 12-19-2022 observation encounter FERMIN-Ventura Wyatt Work Phone: [facility] Work Phone: Start: 10-24-2022 End: 10-24-[address] CUONG ORTIZ . Facility:[facility] Start: 10-23-2022 Registered Recurring SADAF Wyatt Work Phone: [facility] Start: 08-20-2022 End: 08-20-2022 Emergency department patient visit Andie John Wyatt Facility:[facility] Start: 08-20-2022 End: 08-20-2022 Emergency department patient visit FERMINArpitaVentura Wyatt Work Phone: [facility] Work Phone: Start: 07-23-[address] CUONG ORTIZ . Facili ty:[facility] Start: 07-09-2022 End: 07-09-[address] CUONG ORTIZ . Facility:[facility] Start: 07-05-2022 End: 07-07-2022 Evaluation and management of inpatient DR CUONG ORTIZ . Facility:[facility] Start: 07-02-2022 End: 07-02-2022 ambulatory [facility] Facility:[facility] Start: 06-28-2022 End: 06-28-[address] CUONG ORTIZ . Facility:[facility] Start: 06-21-2022 End: 06-21-2022 [facility] Facility:[facility] Start: 06-16-2022 End: 06-16-[address] CUONG ORTIZ . Facility:[facility] Start: 06-14-2022 End: 06-14-2022 ambulatory BARB WILLIAMS . Facility:[facility] Start: 06-14-2022 End: 06-14-[address] CUONG ORTIZ . Facility:[facility] Start: 06-07-2022 End: 06-07-[address] CUONG ORTIZ . Facility:[facility] Start: 06-04-2022 End: 06-04-[address] CUONG ORTIZ . Facility:[facility] Start: 06-02-2022 End: 06-02-[address] CUONG ORTIZ . Facility:[facility] Start: 05-31-2022 End: 05-31-[address] CUONG ORTIZ . Facility:[facility] Start: 05-24-2022 End: 05-24-2022 [facility] Facility:[facility] Start: 04-04-2022 End: 04-05-[address] CUONG ORTIZ . Facility:[facility] Start: 03-20-2022 End: 03-21-[address] CUONG ORTIZ . Facility:[facility] Start: 02-22-2022 End: 02-23-[address] CUONG ORTIZ . Facility:[facility] Start: 02-06-2022 End: 02-06-[address] CUONG ORTIZ . Facility:[facility] Start: 02-06-2022 End: 02-07-[address] CUONG ORTIZ . Facility:[facility] Start: 02-05-2022 End: 02-05-2022 Emergency department patient visit SADAF Wyatt Work Phone: [facility] Start: 12-26-2021 End: 12-27-[address] CUONG ORTIZ . Facility:[facility] Start: 12-07-2021 End: 12-08-[address] CUONG ORTIZ . Facility:[facility] Start: 12-27-2017 End: 12-27-2017 Patient encounter Christian Ivan Facility:[facility] Start: 12-12-2017 End: 12-12-2017 Emergency department patient visit Luke Barbosa Facility:[facility] Start: 12-12-2017 Patient encounter Facil [id number] Start: 12-07-2017 Evaluation and management of inpatient CLARA JAMA Facility:[facility] Start: 12-03-2017 Evaluation and management of inpatient CLARA JAMA Facility:[facility] Start: 12-03-2017 Patient encounter procedure CLARA JAMA Facility:[facility] Start: 12-02-2017 Evaluation and management of inpatient CLARA JAMA Facility:[facility] Start: 11-30-2017 End: 12-02-2017 Evaluation and management of inpatient CLARA JAMA [facility] Start: 11-30-2017 End: 11-30-2017 Patient encounter Salomon Blantonman Facility:[facility] Start: 11-30-2017 Patient encounter Facil [id number] Start: 11-28-2017 End: 11-28-2017 Patient encounter CLARA JAMA [facility] Start: 11-21-2017 End: 11-21-2017 Patient [facility] Start: 11-21-2017 End: 11-21-2017 Patient encounter Juanita Cole Facility:[facility] Start: 11-20-2017 Patient encounter Facil [id number] Start: 11-17-2017 End: 11-17-2017 Patient encounter Christian Ivan Facility:[facility] Start: 11-16-2017 Patient encounter Facil [id number] Start: 11-07-2017 End: 11-07-2017 Patient encounter [facility] Start: 10-31-2017 End: 10-31-2017 Patient encounter CLARA JAMA [facility] Start: 10-24-2017 End: 10-24-2017 Patient encounter MARCO ANTONIO ANTONIO [facility] Start: 10-16-2017 End: 10-16-2017 Patient encounter Christian Ivan Facility:[facility] Start: 10-08-2017 End: 10-08-2017 Patient encounter ALIREZA PATEL [facility] Start: 10-08-2017 End: 10-08-2017 Patient encounter OKSANA MASON [facility] Start: 10-01-2017 End: 10-02-2017 Patient encounter Christian A Shekhar Facility:[facility] Start: 09-10-2017 End: 09-11-2017 Patient encounter LUIS DANIEL TRAMMELL [facility] Start: 09-10-2017 End: 09-10-2017 Patient encounter KRIS Yola HOYT [facility] Start: 09-10-2017 End: 09-10-2017 Patient encounter CLARA JAMA [facility] Start: 09-03-2017 End: 09-04-2017 Patient encounter Christian A Shekhar Facility:[facility] Start: 08-28-[address] [facility] Start: 08-13-2017 End: 08-14-2017 Patient encounter CLARA JAMA [facility] Start: 08-13-2017 End: 08-13-2017 Patient encounter MEREDITH BENITO [facility] Start: 08-13-2017 End: 08-13-2017 Patient encounter ALIREZA PATEL [facility] Start: 08-10-2017 End: 08-10-2017 Emergency department patient visit Luke Barbosa Facility:[facility] Start: 08-06-2017 End: 08-07-2017 Patient encounter Christian A Sheffield Facility:[facility] Start: 07-23-2017 End: 07-24-2017 Patient encounter Christian A Sheffield Facility:[facility] Start: 07-18-2017 End: 07-18-2017 Patient encounter CLARA JAMA [facility] Start: 07-09-2017 End: 07-10-2017 Patient encounter Christian A Sheffield Facility:[facility] Start: 06-25-2017 End: 06-26-2017 Patient encounter Christian A Shekhar Facility:[facility] Start: 06-12-2017 End: 06-12-2017 Patient encounter Christian A Sheffield Facility:[facility] Start: 05-14-2017 End: 05-15-2017 Patient encounter Christian A Sheffield Facility:[facility] Start: 05-01-2017 End: 05-02-2017 Patient encounter Salomon Nguyen Facility:[facility] Start: 04-23-2017 End: 04-23-2017 Patient encounter Yasmin Evans Facility:[facility] Start: 04-22-2017 End: 04-22-2017 Emergency department patient visit Luke Barbosa Facility:[facility] Start: 04-18-2017 End: 04-18-2017 Emergency department patient visit Luke Barbosa Facility:[facility] Start: 04-16-2017 End: 04-17-2017 Patient encounter Gamaliel Savage Facility:[facility] Start: 04-16-2017 End: 04-17-2017 Patient encounter Christian A Shekhar Facility:[facility] Start: 04-11-2017 End: 04-11-2017 Emergency department patient visit Nodr No Doctor Assigned Facility:[facility] Start: 03-26-2017 End: 03-27-2017 Patient encounter Luke Barbosa Facility:[facility] Start: 03-20-2017 End: 03-20-2017 Emergency department patient visit Nodr No Doctor Assigned Facility:[facility] Start: 03-01-2017 End: 03-01-2017 Emergency department patient visit Nodr No Doctor Assigned Facility:[facility] Procedures Date Procedure Procedure Detail Performing Clinician Start: 12-19-2022 Urine culture SADAF Wyatt Work Phone: Start: 12-19-2022 CT of head without contrast SADAF Wyatt Work Phone: Start: 12-19-2022 Antibody screen Andie Wyatt Comment on above: Result Comment: PERF ORMED BY: [facility] [address] [place] [address] PATHOLOGIST SKILLED NURSING FACILITIES PROFESSIONAL MALVIN MEDLEY M.D. Start: 12-19-2022 X-ray of [...] Adult depression scr eening assessment Rosaura Renee [facility] Work Phone: Start: 11-30-2017 Antibody screen SHAINA JAMA Comment on above: Performed By: #### T &S #### [place] [address] Aerobic microbial culture FERMIN Wyatt Work Phone: Investigation of transfusion reaction SADAF Wyatt Work Phone: Plan of Treatment Date Care Activity Detail Author Start: 12-18-2032 DTaP,Tdap and Td Vaccines (10 - Td or Tdap) DTaP,Tdap and Td Vaccines (10 - Td or Tdap) [facility] Start: 09-11-2023 Adult BMI Screening Adult BMI Screen ing [facility] Start: 09-11-2023 Tobacco Screening Tobacco Screening [facility] Start: 07-18-2023 End: 07-18-2023 Patient encounter procedure 07/18/2023 8:00 AM EST Appointment [facility] [address] [facility] [address] [place] [id number] [facility] Start: 05-02-2023 Depression Screening Depression Scre ening [facility] Start: 09-01-2023 COVID-19 Vaccine ( season) COVID-19 Vaccine ( season) [facility] Start: 02-15-2023 Influenza vaccination Influenza Vacc ine [facility] Start: 12-19-2022 Bacteria identified in Urine by Culture Urine Culture [facility] Start: 12-19-2022 [facility] Start: 12-19-2022 CT of head without contrast CT head/brain wo [facility] Start: 12-19-2022 CT Unspecified body region WO contrast [facility] Start: 12-19-2022 Consultation [facility] Start: 12-19-2022 Hospital admission [facility] Start: 12-19-2022 X-ray of left foot XR foot LT 2V [facility] Start: 12-19-2022 XR Foot - left 2 Views [facility] Start: 12-18-2022 Computed tomography of thoracic spine without contrast CT thoracic spine wo [facility] Start: 12-18-2022 CT cervical spine without contrast CT cervical spine wo [facility] Start: 12-18-2022 CT Cervical spine WO contrast [facility] Start: 12-18-2022 CT Lumbar spine WO contrast [facility] Start: 12-18-2022 CT of head without contrast CT head/brain wo [facility] Start: 12-18-2022 CT of lumbar spine without contrast CT lumbar spine wo [facility] Start: 12-18-2022 CT Thoracic spine WO contrast [facility] Start: 12-18-2022 CT Unspecified body region WO contrast [facility] Start: 12-18-2022 Pelvis X-ray XR pelvis 1-2V [facility] Start: 12-18-2022 Plain chest X-ray XR chest 1V portab le [facility] Start: 12-18-2022 X-ray of both knees XR knee BI 2V [facility] Start: 12-18-2022 XR Chest Single view [facility] Start: 12-18-2022 XR Knee - bilateral 2 Views [facility] Start: 12-18-2022 XR Pelvis 1 or 2 Views [facility] Start: 02-05-2022 [facility] Work Phone: Start: 2013 Screening for malign ant neoplasm of cervix Pap Smear [facility] Start: 2010 Adult BMI Follow Up Plan Adult BMI Follow Up Plan [facility] Anaerobic microbial culture Anaerobic Culture [facility] Bacteria identified in Urine by Culture [facility] Patient Education [facility] Work Phone: Patient referral [facility] Work Phone: Immunizations Immunization Date Immunization Notes Care Provider Fa hector 12-18-2022 tetanus toxoid, redu swati diphtheria toxoid, and acellular pertussis vaccine, adsorbed SADAF Wyatt Work Phone: [facility] 05-19-2013 influenza virus vaccine, unspecified formulation Rosaura Renee [facility] Work Phone: [facility] Payers Date Payer Category Payer Self-pay 2017 Medicaid 2017 Unknown 1992 Unknown [id number] 2.840.1.770822.3.579.2.278 1992 Unknown [id number] 2.840.1.249544.3.579.2.278 1992 Unknown [id number] 2.840.1.570065.3.579.2.278 1992 Unknown [id number] 2.16840.1.958040.3.579.2.278 1992 Unknown [id number] 2.16.840.1.500322.3.579.2.593 1992 Unknown [id number] 2.16.840.1.910400.3.579.2.593 1992 Unknown [id number] 2.16.840.1.818983.3.579.2.593 1992 Unknown [id number] 2.16840.1.587397.3.579.2.593 1992 Unknown [id number] 2.16.840.1.111512.3.579.2.593 1992 Unknown [id number] 2.16.840.1.908499.3.579.2.593 1992 Unknown [id number] 2.16.840.1.181138.3.579.2.593 1992 Unknown [id number] 2.16.840.1.501886.3.579.2.593 1992 Unknown [id number] 2.16.840.1.816948.3.579.2.593 1992 Unknown [id number] 2.16.840.1.867123.3.579.2.593 1992 Unknown [id number] 2.16.840.1.905899.3.579.2.59 1992 Unknown [id number] 2.16.840.1.269272.3.579.2.593 1992 Unknown [id number] 2.16.840.1.389281.3.579.2.593 1992 Unknown [id number] 2.16.840.1.015207.3.579.2.593 1992 Unknown [id number] 2.16.840.1.600946.3.579.2.593 1992 Unknown [id number] 2.16.840.1.576628.3.579.2.59 1992 Unknown [id number] 2.16.840.1.131519.3.579.2.593 1992 Unknown [id number] 2.16.840.1.805467.3.579.2.593 1992 Unknown [id number] 2.16.840.1.829596.3.579.2.593 1992 Unknown [id number] 2.16.840.1.847345.3.579.2.593 1992 Unknown [id number] 2.16.840.1.633422.3.579.2.593 1992 Unknown [id number] 2.16.840.1.760623.3.579.2.593 1992 Unknown [id number] 2.16.840.1.083244.3.579.2.9 1992 Unknown [id number] 2.16.840.1.096291.3.579.2.1259 1992 Unknown [id number] 2.16.840.1.482206.3.579.2.1286 1959 Medicaid [id number] 1957 Medicaid [id number] Medicaid [id number] Unknown Regular Auto/Liability [id number] Unknown [id number] 2.840.1.722227.3.579.2.531 Unknown [id number] 2.840.1.438067.3.579.2.531 Unknown [id number] 20.1.933415.3.579.2.531 Unknown [id number] .0.1.352826.3.579.2.531 Unknown [id number] .0.1.078827.3.579.2.531 Social History Date Type Detail Facility Start: 02-05-2022 End: 02-08-2023 Tobacco smoking status IAIS Never smoked tobacco (finding) [facility] Start: 1990 Sex Assigned At Female F [facility] Start: 12-19-2022 End: 12-19-2022 Tobacco smoking status IAIS Current some day smoker [facility] Start: 03-28-2022 End: 02-11-2023 Tobacco smoking status NHIS Ex-smoker (finding) [facility] History of tobacco use Current smoker [facility] History of tobacco use Tobacco U se Types Packs/Day Years Used Date Smoking Tobacco: Former Vaping/E-cigarettes Smokeless Tobacco: Never [facility] Start: 03-28-2022 Tobacco use and exposure Smoke less tobacco non-user [facility] Start: 06-26-2023 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) [facility] Start: 03-18-2018 End: 07-28-2020 History of Social function [facility] Start: 03-18-2018 End: 07-28-2020 Alcohol Use Disorder Identification Test - Consumption [AUDIT-C] [facility] Frequency of Alcohol Consumption Never [facility] Start: 03-11-2023 [facility] Start: 1990 Sex Assigned At Not on file P [facility] Goals Date Patient Goal Desired Activity /State Functional Status Date Assessment Result Facility 12-19-2022 Functional status Patient at Baseline [facility] Work Phone: Mental Status Date Assessment Result Facility 12-19-2022 Cognitive function Cognitive Sta tus Patient at Baseline [facility] Work Phone: Clinical Notes 11-13-2021 to 07-03-2023 JOCELYN Wilson - 07/03/2023 11:00 AM EST Note Date & Type Note Facility 07-03-2023 History of Present illness Narrative Summary: [facility] Genetic Counseling Note Provider at different site/location than patient. I confirmed the patient is located in the [facility]. Zuleika Wyatt is currently at home and provider at remote site. The patient consented to be treated electronically via this form of telemedicine. This visit was not related to an office visit or procedure in the past 7 days, and in-office follow up is not recommended in the next 24 hours. Video Visit via Real-time Synchronous Audiovisual Provider Location: [facility]INE AT [address] [address] Patient Location: Patient's home Patient Location Production Controller: None Video Visit Consent Statement: I discussed [...] that there are some limitations compared to frza-yq-wedb evaluations. We elected to proceed. Name: Zuleika Wyatt : 1990 Date of Visit: 07/03/2023 Email: [email or web address] Preferred contact method: any Partner's Name: Jag Age: 45 Requesting Physician: Cuong Ortiz DO [address] , [place] [address] Reason for Referral: Zuleika Wyatt is a 33 y.o. female who presented to [facility] Tele[facility]icine [facility]. Zuleika is here at [...] Screen: YES - low risk Performing lab: Soonr screen Conditions screened: Trisomy 13, Trisomy 18, [...] testing, and cardiac MRI as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
[2023-07-20 03:08] LABS: AFP Value 70.2 ng/mL (.); Gest. Age on Collection Date 20.4 weeks (.); Insulin Dep Diabetes No (.); Maternal Age At EDD 31.7 yr (.); OSBR Risk 1 IN 6301 (.); Results Report (.)
== END 2023-07-18 11:23 | disposition home or self-care (01) ==
PROVIDERS: Visit Provider Obstetrics & Gynecology
DX: Z34.92 Encounter for supervision of normal pregnancy, unspecified, second trimester (principal)
CPT/HCPCS: 36415; 82105

== ENCOUNTER 2023-07-18 13:03 | Outpatient (OUT) | payer MEDICAID, SELFPAY ==
--- OUTSIDE RECORDS SUMMARY | 2023-07-18 13:13 | XMS_ITS | CCD ---
Author Name Unknown Address [address] [place] [address] [facility] Care Team Providers Care Shotblast Operator Name Role Phone CLARA JAMA Unavailable Unavail able SERENITY MALDONADO Unavailable Unavailable OKSANA CARO Unavailable Unavai NAGA Barrios Unavailable Unavailable BARBOSA, LUKE MALIK Unavailable Unavailable Salomon Nguyen Unavailable Unavailable Salomon Nguyen Unavailable Unavailable Barbosa, Luke Unavailable Unavailable [place], Christian A Unavailable Unavailable Barbosa, Luke Unavailable Unavailable [place], Christian A Unavailable Unavailable Barbosa, Luke Unavailable Unavailable [place], Christian A Unavailable Unavailable Barbosa, Luke Unavailable Unavailable Shekhar, Christian A Unavailable Unavailable Barbosa, Luke Unavailable Unavailable Shekhar, Christian A Unavailable Unavailable Shekhar, Christian A Unavailable Unavailable Barbosa, Luke Unavailable Unavailable [place], Christian A Unavailable Unavailable Barbosa, Luke Unavailable Unavailable [place], Christian A Unavailable Unavailable [place], Christian A Unavailable Unavailable Barbosa, Luke Unavailable Unavailable Barbosa, Luke Unavailable Unavailable Woo, Emiliano Unavailable Unavailable Woo, Emiliano Unavailable Unavailable Patrick Salomon R Unavailable Unavailable Barbosa, Luke Unavailable Unavailable Barbosa, Luke Unavailable Unavailable Oscar, Jag W Unavailable Unavailable Winchester, Jag W Unavailable Unavailable Shekhar, Christian A [...] No Doctor Assigned, Nodr Unavailable Unavail able Winchester, Jag W Unavailable Unavailable Winchester, Jag W Unavailable Unavailable Barbosa, Luke Unavailable Unavailable No Doctor Assigned, Nodr Unavailable Unavail able Savage, Gamaliel M Unavailable Unavailable Barbosa, Luke Unavailable Unavailable Hannah, Aaron A Unavailable Unavailable Hannah, Aaron A Unavailable Unavailable Patrick, Salomon R Unavailable Unavailable Patrick, Salomon R Unavailable Unavailable Barbosa, Luke Unavailable Unavailable Frank, Juanita Unavailable Unavailable Frank, Juanita Unavailable Unavailable Barbosa, Luke Unavailable Unavailable [place], Christian A Unavailable Unavailable [place], Christian A Unavailable Unavailable Barbosa, Luke Unavailable Unavailable Shekhar, Christian A Unavailable Unavailable Barbosa, Luke Unavailable Unavailable Barbosa, Luke Unavailable Unavailable Winchester, Jag W Unavailable Unavailable Oscar, Jag W Unavailable Unavailable Shekhar, Christian A Unavailable Unavailable Barbosa, Luke Unavailable Unavailable Savage, Gamaliel M Unavailable Unavailable Savage, Gamaliel M Unavailable Unavailable Barbosa, Luke Unavailable Unavailable [place], Christian A Unavailable Unavailable Barbosa, Luke Unavailable [...] Primary Care Provider SADAF Hess Emergency Provider [phone] SADAF Wyatt [facility] Elle Whitney Emergency Provider DR CUONG PAGAN Consulting Unavailable [facility] Primary Care Unavailable POLO ., DR ACOSTA Attending Unavailable POLO ., DR ACOSTA Admitting Unavailable POLO ., DR ACOSTA Admitting Unavailable POLO ., DR ACOSTA Attending Unavailable [facility] Primary Care Unavailable POLO ., DR ACOSTA Consulting Unavailable SUSI, DR FELECIA Chadwick Consulting Unavailable [facility] Primary Care Unavailable KARASIK ., DR CAMACHO Admitting Unavailabl e KARASIK ., DR CAMACHO Attending Unavailabl e KARASIK ., DR CAMACHO Consulting Unavailabl e WEST, DR GAMALIEL Fischer Consulting Unavailable POLO ., DR ACOSTA Consulting Unavailable ZIEBER, DR FELECIA Chadwick Consulting Unavailable WILLIAMS ., BARB Admitting Unavailable WILLIAMS ., BARB Attending Unavailable [facility] Primary Care Unavailable WILLIAMS ., BARB Consulting Unavailable POLO ., DR ACOSTA Admitting Unavailable POLO ., DR ACOSTA Attending Unavailable [facility] Primary Care Unavailable POLO ., DR ACOSTA Consulting Unavailable [facility] Primary Care Unavailable KARASIK ., DR CAMACHO Admitting Unavailabl e KARASIK ., DR CAMACHO Attending Unavailabl e KARASIK ., DR CAMACHO Consulting Unavailabl e POLO ., DR ACOSTA Admitting Unavailable POLO ., DR ACOSTA Attending Unavailable [facility] Primary Care Unavailable POLO ., DR ACOSTA Consulting Unavailable ZIEBER, DR FELECIA Chadwick Consulting Unavailable POLO ., DR ACOSTA Admitting Unavailable POLO ., DR ACOSTA Attending Unavailable [facility] Primary Care Unavailable POLO ., DR ACOSTA Consulting Unavailable ZIEBER, DR FELECIA Chadwick Consulting Unavailable PRATIMA, BRODIE Consulting Unavailable POLO ., DR ACOSTA Consulting Unavailable [facility] Primary Care Unavailable POLO ., DR ACOSTA Attending Unavailable POLO ., DR ACOSTA Admitting Unavailable ZIEBER, DR FELECIA Chadwick Consulting Unavailable POLO ., DR ACOSTA Consulting Unavailable [facility] Primary Care Unavailable POLO ., DR ACOSTA Attending Unavailable POLO ., DR ACOSTA Admitting Unavailable POLO ., DR ACOSTA Admitting Unavailable POLO ., DR ACOSTA Attending Unavailable [facility] Primary Care Unavailable POLO ., DR ACOSTA Consulting Unavailable ZIEBER, DR FELECIA Chadwick Consulting Unavailable POLO ., DR ACOSTA Admitting Unavailable POLO ., DR ACOSTA Attending Unavailable [facility] Primary Care Unavailable WEST, DR GAMALIEL Fischer Consulting Unavailable POLO ., DR ACOSTA Consulting Unavailable [facility] Primary Care Unavailable KARASIK ., DR CAMACHO Admitting Unavailabl e KARASIK ., DR CAMACHO Attending Unavailabl e KARASIK ., DR CAMACHO Consulting Unavailabl e POLO ., DR ACOSTA Consulting Unavailable ZIEBER, DR FELECIA Chadwick Consulting Unavailable POLO ., DR ACOSTA Admitting Unavailable POLO ., DR ACOSTA Attending Unavailable [facility] Primary Care Unavailable WEST, DR GAMALIEL Fischer Consulting Unavailable POLO ., DR ACOSTA Consulting Unavailable POLO ., DR ACOSTA Admitting Unavailable POLO ., DR ACOSTA Attending Unavailable [facility] Primary Care Unavailable POLO ., DR ACOSTA Consulting Unavailable POLO ., DR ACOSTA Admitting Unavailable POLO ., DR ACOSTA Attending Unavailable [facility] Primary Care Unavailable POLO ., DR ACOSTA Consulting Unavailable ZIEBER, DR FELECIA Chadwick Consulting Unavailable POLO ., DR ACOSTA Admitting Unavailable POLO ., DR ACOSTA Attending Unavailable [facility] Primary Care Unavailable POLO ., DR ACOSTA Consulting Unavailable POLO ., DR ACOSTA Admitting Unavailable POLO ., DR ACOSTA Attending Unavailable [facility] Primary Care Unavailable POLO ., DR ACOSTA Consulting Unavailable [facility] Primary Care Unavailable POLO ., DR ACOSTA Attending Unavailable POLO ., DR ACOSTA Admitting Unavailable POLO ., DR ACOSTA Admitting Unavailable POLO ., DR ACOSTA Attending Unavailable [facility] Primary Care Unavailable POLO ., DR ACOSTA Admitting Unavailable POLO ., DR ACOSTA Attending Unavailable [facility] Primary Care Unavailable KARASIK ., DR CAMACHO Consulting Unavailabl e POLO ., DR ACOSTA Consulting Unavailable POLO ., DR ACOSTA Procedure Practitioner Unavail able ORLANDO PRASAD Consulting Unavailable JACQUES FLETCHER Consulting Unavailable POLO ., DR ACOSTA Admitting Unavailable POLO ., DR ACOSTA Attending Unavailable [facility] Primary Care Unavailable KARASIK ., DR CAMACHO [...] Other Provider MD Edith Urias Other Provider [phone] SADAF Wyatt Primary Care Provider Meagan PERINATAL COORDINATOR-OSVALDO Elle E Emergency Provider [phone] BRANNON Valencia Emergency Provider [phone] BARB KRAMER Attending Unavailable CUONG ORTIZ Attending [...] Unavailable Andie Wyatt PA-C Primary Care Provider [phone] CUONG ORTIZ Referring Unavailable ANDIE WYATT Primary Care Unavailable Allergies Allergy Classification Reported Allergen(s) Allergy Type Date of Onset Reaction(s) Facility (2 sources) Bee; Translations: [BEES] Propensity to adverse reactions (disorder) 8 AOF [facility] Repository (2 sources) Mold spore; Translations: [MOLD SPORES] [facility] Penicillins; Translations: [PENICILLINS] Propensity to adverse reactions to drug (disorder) 4 Hives [facility] Repository (10 sources) Sulfonamides (Antibiotic); Translations: [SULFA (SULFONAMIDE ANTIBIOTICS)] Propensity to adverse reactions to drug (disorder) 8 AOF, Rash [facility] Repository (1 source) Bee/Wasp/Ant venom; Translations: [Bee Stings] Propensity to adverse reactions to drug (disorder) [facility] Repository (1 source) mold extract; Translations: [Mold] Drug Allergy [facility] Repository (1 source) Sulfonamides (Antibiotic); Translations: [sulfa drugs] Propensity to adverse reactions to drug (disorder) [facility] Repository (1 source) bee venom; Translations: [BEE VENOM] Propensity to adverse reactions to drug (disorder) 8 [facility] Repository (1 source) OTHER; Translations: [OTHER] Propensity to adverse reactions to food (disorder) 8 [facility] Repository (1 source) MOLDS & SMUTS; Translations: [MOLDS & SMUTS] Propensity to adverse reactions to drug (disorder) 8 [facility] Repository (1 source) SULFA ANTIBIOTICS; Translations: [SULFA ANTIBIOTICS] Propensity to adverse reactions to drug (disorder) 8 [facility] Repository (1 source) Sulfonamides (Antibiotic) Drug allergy (disorder) 4 [facility] Repository (2 sources) Bee Venom Protein (Honey [...] Start: 08-06-2022 fluconazole (DIFLUCAN) 10 mg/mL suspension [place] (No Known Home Meds) (2 sources) Start: 12-18-2022 [place] (No Known Home Meds) Active December 18, [...] Onset: 11-30-2017 Unclassified (3 sources) 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 NA/UNS; Translations: [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 Amphetamine Screen Ql (U)Ord ered By: Oscar Poe on 12-19-2022 Amphetamines Ql (U) Negative Negative [facility] Amylaseon 12-19-2022 Amylase [Catalytic activity/Vol] 35 U/L Normal 29-103 [facility] Comment on above: Performed By: #### C BC, CREAT, GLU, LYTES, AST, ETOH, BARB, LIPASE, CK, BUN ####[facility] [place] [id number] [facility] Aspartate Amino Transferaseo n 12-19-2022 AST [Catalytic activity/Vol] 26 U/L Normal 13-39 [facility] Comment on above: Performed By: #### C BC, CREAT, GLU, LYTES, AST, ETOH, BARB, LIPASE, CK, BUN ####[facility] [place] [id number] [facility] Automated erythrocytes count in urine sediment (number/area)Ordered By: Oscar Poe on 12-19-2022 RBC Auto (Urine sed) [#/Area] 5-9 [HPF] 0-4 [facility] Automated leukocytes count i n urine sediment (number/area)Ordered By: Oscar Poe on 12-19-2022 WBC Auto (Urine sed) [#/Area] 10-19 [HPF] 0-4 [facility] Barbiturates [Presence] in U rine by Screen methodOrdered By: Oscar Poe on 12-19-2022 Barbiturates Screen Ql (U) Negative Negative [facility] Benzodiazepines Screen Ql (U )Ordered By: Oscar Poe on 12-19-2022 Benzodiazepines Ql (U) Negative Negative [facility] Benzoylecgonine [Presence] i n Urine by Screen methodOrdered By: Oscar Poe on 12-19-2022 Benzoylecgonine Screen Ql (U) Negative Negative [facility] Bilirubin Test strip Ql (U)O rdered By: Oscar Poe on 12-19-2022 Bilirubin Ql (U) Negative Negative [facility] Blood Urea Nitrogenon 2022 Urea nitrogen [Mass/Vol] 21 mg/dL Normal 7-25 [facility] Comment on above: Performed By: #### C BC, CREAT, GLU, LYTES, AST, ETOH, BARB, LIPASE, CK, BUN ####[facility] [id number] cervical spine wo conon 0 12-19-2022 CT cervical spine wo con [facility] [address] [facility] [address] [place] [address] CT Scan Report Signed Patient: Zuleika Wyatt MR#: [id number] : 1990 Acct:[id number] Age/Sex: 32 / F ADM Date: 12/19/22 Loc: Room: [address] [place] [address] Type: ADM INOo Attending Dr: Arden Orozco DO Copies to: DO Arden Jefferson DO Ordering Provider: Oscar Poe DO Date of Service: 12/18/22 CT/CT cervical spine wo con: f ([id number]) CT/CT head/brain wo con: f CT BRAIN [...] Pimentel Jr., D.OAlexa12/19/2022 10:25 AM Dictation Location: [place] [address] Transcribed By: [facility] 12/19/22 1025 Dictated By: Rah Pimentel Jr, DO 12/19/22 1016 Signed By: 12/19/22 1025 Normal [facility] CT head/brain wo conon 12-19 CT head/brain wo con [facility] [address] [place] [address] CT Scan Report Signed Patient: Zuleika Wyatt MR#: [id number] : 1990 Acct:[id number] Age/Sex: 32 / F ADM Date: 12/19/22 Loc: Room: [address] [place] [address] Type: DIS INOo Attending Dr: Arden Orozco [...] 12/19/22 1524 Signed By: 12/19/22 1528 Normal [facility] CT lumbar spine wo radha CT lumbar spine wo con [facility] Main [facility] [address] [place] [address] [address] Scan Report Signed Patient: Zuleika Wyatt MR#: [id number] : 1990 Acct:[id number] Age/Sex: 32 / F ADM Date: 12/19/22 Loc: Room: [address] [place] [address] Type: ADM INOo Attending Dr: Arden Orozco DO Copies to: DO Arden Jefferson DO Ordering Provider: Oscar Poe DO Date of Service: 12/18/22 CT/CT thoracic spine wo con: f ([id number]) CT/CT lumbar spine wo con: f CT [...] narrowing or hypertrophy. The ribs within the [id number]-[id number] appear intact. No paraspinal soft tissue abnormalities are present. The ascending aorta is mildly ectatic. The heart is not fully imaged though it is at least borderline prominent. There is no consolidation, pleural effusion or pneumothorax within the [id number]. No lumbar compression fractures are identified. There [...] The intra-abdominal and pelvic structures within the uarqw-zp-zkwd show no contributory findings. CT/CT thoracic spine wo con IMPRESSION: MILD THORACIC SCOLIOSIS. NO ACUTE BONY INJURY INVOLVING THE THORACIC OR LUMBAR SPINE. Impression dictated by: Adela Mahan M.D.12/19/2022 10:36 AM Dictation Location: [place] [address] Transcribed By: [facility] 12/19/22 1036 Dictated By: Adela Mahan MD 12/19/22 1026 Signed By: 12/19/22 1036 Normal [facility] Cannabinoids [Presence] in U rine by Screen methodOrdered By: Oscar Poe on 12-19-2022 Cannabinoids Screen Ql (U) Positive Negative [facility] Comment on above: These are unconfirme d results and should not be used for legal purposes. Drug Cut-Off Concentration: AMPH 1000 ng/mL SEEMA 200 ng/mL LAZ 200 ng/mL COCM 300 ng/mL OP 300 ng/mL PCP 25 ng/mL THC 20 ng/mL Color Auto (U)Ordered By: Fernando Poe on 12-19-2022 Color (U) Yellow Yellow [facility] Complete Blood Count Auto Di ffon 12-19-2022 Basophils (Bld) [#/Vol] 0.1 10*3/uL Normal 0.0-0.2 [facility] Comment on above: Result Comment: PERF ORMED BY: [facility] [address] [place] [address] PATHOLOGIST EMBROIDERY OPERATOR MALVIN MEDLEY M.D. Performed By: #### C BC, CREAT, GLU, LYTES, AST, ETOH, BARB, LIPASE, CK, BUN ####[place] [id number] [place] [id number] [place] Basophils/100 WBC (Bld) 0.7 % Normal . [facility] Comment on above: Performed By: #### C BC, CREAT, GLU, LYTES, AST, ETOH, BARB, LIPASE, CK, BUN ####[place] [id number] [place] [id number] [place] Eosinophils (Bld) [#/Vol] 0.0 10*3/uL Normal 0.0-0.45 [facility] Comment on above: Performed By: #### C BC, CREAT, GLU, LYTES, AST, ETOH, BARB, LIPASE, CK, BUN ####[address] Eosinophils/100 WBC (Bld) 0.2 % Normal . [facility] Comment on above: Performed By: #### C BC, CREAT, GLU, LYTES, AST, ETOH, BARB, LIPASE, CK, BUN ####[address] Erythrocyte distribution width (RBC) [Ratio] 14.4 % Normal 11.9-15.3 [facility] Comment on above: Performed By: #### C BC, CREAT, GLU, LYTES, AST, ETOH, BARB, LIPASE, CK, BUN ####[address] Hematocrit (Bld) [Volume fraction] 36.2 % Normal 34.0-46.4 [facility] Comment on above: Performed By: #### C BC, CREAT, GLU, LYTES, AST, ETOH, BARB, LIPASE, CK, BUN ####[address] Hemoglobin (Bld) [Mass/Vol] 11.9 g/dL Normal 11.8-15.4 [facility] Comment on above: Performed By: #### C BC, CREAT, GLU, LYTES, AST, ETOH, BARB, LIPASE, CK, BUN ####[address] Lymphocytes (Bld) [#/Vol] 2.2 10*3/uL Normal 1.00-4.8 [facility] Comment on above: Performed By: #### C BC, CREAT, GLU, LYTES, AST, ETOH, BARB, LIPASE, CK, BUN ####[address] Lymphocytes/100 WBC (Bld) 21.8 % Normal . [facility] Comment on above: Performed By: #### C BC, CREAT, GLU, LYTES, AST, ETOH, BARB, LIPASE, CK, BUN ####[address] MCH (RBC) [Entitic mass] 26.9 pg Normal 24.7-34.3 [facility] Comment on above: Performed By: #### C BC, CREAT, GLU, LYTES, AST, ETOH, BARB, LIPASE, CK, BUN ####[address] MCV (RBC) [Entitic vol] 82.1 fL Normal 80-100 [facility] Comment on above: Performed By: #### C BC, CREAT, GLU, LYTES, AST, ETOH, BARB, LIPASE, CK, BUN ####[address] Mean Corpuscular HGB Conc 32.8 g/dL Normal 32.0-35.0 [facility] Comment on above: Performed By: #### C BC, CREAT, GLU, LYTES, AST, ETOH, BARB, LIPASE, CK, BUN ####[address] Monocytes (Bld) [#/Vol] 0.8 10*3/uL Normal 0.0-0.8 [facility] Comment on above: Performed By: #### C BC, CREAT, GLU, LYTES, AST, ETOH, BARB, LIPASE, CK, BUN ####[address] Monocytes/100 WBC (Bld) 22.19 % High 0.00-20.00 [facility] Comment on above: Result Comment: For adults in ED, MDW > 20.0 may be associated with a higher risk of sepsis during the first 12 hrs of hospital admission Performed By: #### C BC, CREAT, GLU, LYTES, AST, ETOH, BARB, LIPASE, CK, BUN ####[address] Monocytes/100 WBC (Bld) 7.4 % Normal . [facility] Comment on above: Performed By: #### C BC, CREAT, GLU, LYTES, AST, ETOH, BARB, LIPASE, CK, BUN ####[address] Neutrophils (Bld) [#/Vol] 7.2 10*3/uL Normal 1.8-7.7 [facility] Comment on above: Performed By: #### C BC, CREAT, GLU, LYTES, AST, ETOH, BARB, LIPASE, CK, BUN ####[address] Neutrophils/100 WBC (Bld) 69.9 % Normal . [facility] Comment on above: Performed By: #### C BC, CREAT, GLU, LYTES, AST, ETOH, BARB, LIPASE, CK, BUN ####[address] NRBC% 0.1 /100{WBC} Normal 0-0.5 [facility] Comment on above: Performed By: #### C BC, CREAT, GLU, LYTES, AST, ETOH, BARB, LIPASE, CK, BUN ####[address] Platelet mean volume (Bld) [Entitic vol] 8.1 fL Normal 6.3-10.7 [facility] Comment on above: Performed By: #### C BC, CREAT, GLU, LYTES, AST, ETOH, BARB, LIPASE, CK, BUN ####[address] Platelets (Bld) [#/Vol] 223 10*3/uL Normal 150-450 [facility] Comment on above: Performed By: #### C BC, CREAT, GLU, LYTES, AST, ETOH, BARB, LIPASE, CK, BUN ####[address] RBC (Bld) [#/Vol] 4.42 10*6/uL Normal 3.60-5.00 [facility] Comment on above: Performed By: #### C BC, CREAT, GLU, LYTES, AST, ETOH, BARB, LIPASE, CK, BUN ####[address] WBC (Bld) [#/Vol] 10.3 10*3/uL Normal 3.8-11.6 [facility] Comment on above: Performed By: #### C BC, CREAT, GLU, LYTES, AST, ETOH, BARB, LIPASE, CK, BUN ####[address] Creatine Kinaseon 12-19-2022 CK [Catalytic activity/Vol] 50 U/L Normal 30-223 [facility] Comment on above: Result Comment: PERF ORMED BY: [facility] [address] [facility] [place] [address] PATHOLOGIST EMBROIDERY OPERATOR MALVIN MEDLEY M.D. Performed By: #### C BC, CREAT, GLU, LYTES, AST, ETOH, BARB, LIPASE, CK, BUN ####[address] Creatinineon 12-19-2022 Creatinine [Mass/Vol] 0.84 mg/dL Normal 0.60-1.20 [facility] Comment on above: Performed By: #### C BC, CREAT, GLU, LYTES, AST, ETOH, BARB, LIPASE, CK, BUN ####[address] Creatinine Clr Calc Pharmacy 98.76 [facility] Comment on above: Performed By: #### C BC, CREAT, GLU, LYTES, AST, ETOH, BARB, LIPASE, CK, BUN ####[address] GFR/1.73 sq M.predicted MDRD (S/P/Bld) [Vol rate/Area] mL/min/{1.73_m2} [facility] Comment on above: Performed By: #### C BC, CREAT, GLU, LYTES, AST, ETOH, BARB, LIPASE, CK, BUN ####[facility] [id number] [place] [address] [place] Dipstick and Microscopicon 0 12-19-2022 Appearance (U) Clear Normal Clear [facility] Comment on above: Order Comment: Name Collection Type:: Clean-Voided Midstream Performed By: #### U RDS, UHCG, CUU, ADDONUAPLUS #### [facility] [address] [place] [address] [place] Bacteria,Urine None Seen Normal None Seen [facility] Comment on above: Order Comment: Name Collection Type:: Clean-Voided Midstream Performed By: #### U RDS, UHCG, CUU, ADDONUAPLUS #### [facility] [address] [place] [address] [place] Bilirubin,Urine Negative Normal Negative [facility] Comment on above: Order Comment: Name Collection Type:: Clean-Voided Midstream Performed By: #### U RDS, UHCG, CUU, ADDONUAPLUS #### [facility] [address] [place] [address] [place] Color (U) Yellow Normal Yellow [facility] Comment on above: Order Comment: Name Collection Type:: Clean-Voided Midstream Performed By: #### U RDS, UHCG, CUU, ADDONUAPLUS #### [facility] [address] [place] [address] [place] Glucose Ql (U) Normal Normal Normal [facility] Comment on above: Order Comment: Name Collection Type:: Clean-Voided Midstream Performed By: #### U RDS, UHCG, CUU, ADDONUAPLUS #### [facility] [address] [place] [address] [place] Hyaline Casts,Urine 0-8 Normal 0-8 [facility] Comment on above: Order Comment: Name Collection Type:: Clean-Voided Midstream Performed By: #### U RDS, UHCG, CUU, ADDONUAPLUS #### [facility] [address] [place] [address] [place] Ketones Ql (U) 1+ High Negative [facility] Comment on above: Order Comment: Name Collection Type:: Clean-Voided Midstream Performed By: #### U RDS, UHCG, CUU, ADDONUAPLUS #### [facility] [address] [place] [address] Leukocyte esterase Test strip Ql (U) 2+ High Negative [facility] Comment on above: Order Comment: Name Collection Type:: Clean-Voided Midstream Performed By: #### U RDS, UHCG, CUU, ADDONUAPLUS #### [facility] [address] [place] [address] Nitrite,Urine Negative Normal Negative [facility] Comment on above: Order Comment: Name Collection Type:: Clean-Voided Midstream Performed By: #### U RDS, UHCG, CUU, ADDONUAPLUS #### [facility] [address] [place] [address] Occult Blood,Urine Negative Normal Negative [facility] Comment on above: Order Comment: Name Collection Type:: Clean-Voided Midstream Performed By: #### U RDS, UHCG, CUU, ADDONUAPLUS #### [facility] [address] [place] [address] pH (U) 5.5 [pH] Normal 5.0-9.0 [facility] Comment on above: Order Comment: Name Collection Type:: Clean-Voided Midstream Performed By: #### U RDS, UHCG, CUU, ADDONUAPLUS #### [facility] [address] [place] [address] [place] Protein,Urine Negative Normal Negative [facility] Comment on above: Order Comment: Name Collection Type:: Clean-Voided Midstream Performed By: #### U RDS, UHCG, CUU, ADDONUAPLUS #### [facility] [address] [place] [address] [place] RBC,Urine 5-9 High 0-4 [facility] Comment on above: Order Comment: Name Collection Type:: Clean-Voided Midstream Performed By: #### U RDS, UHCG, CUU, ADDONUAPLUS #### [address] [place] [address] [place] Specificy [place],Urine 1.025 Normal 1.001-1.030 [facility] Comment on above: Order Comment: Name Collection Type:: Clean-Voided Midstream Performed By: #### U RDS, UHCG, CUU, ADDONUAPLUS #### [facility] [address] [place] [address] Squamous Epithelial Cell,Urine 3-4 High 0-2 [facility] Comment on above: Order Comment: Name Collection Type:: Clean-Voided Midstream Performed By: #### U RDS, UHCG, CUU, ADDONUAPLUS #### [facility] [address] [place] [address] Urobilinogen,Urine Normal Normal Normal [facility] Comment on above: Order Comment: Name Collection Type:: Clean-Voided Midstream Performed By: #### U RDS, UHCG, CUU, ADDONUAPLUS #### [facility] [address] [place] [address] WBC,Urine 10-19 High 0-4 [facility] Comment on above: Order Comment: Name Collection Type:: Clean-Voided Midstream Performed By: #### U RDS, UHCG, CUU, ADDONUAPLUS #### [facility] [address] [place] [address] Drug Screen,Urineon 12-20-19 23 Amphetamine Screen,Urine Negative Normal Negative [facility] Comment on above: Performed By: #### U RDS, UHCG, CUU, ADDONUAPLUS #### [facility] [address] [place] [address] Barbiturate Screen,Urine Negative Normal Negative [facility] Comment on above: Performed By: #### U RDS, UHCG, CUU, ADDONUAPLUS #### [address] Benzodiazepines Screen,Urine Negative Normal Negative [facility] Comment on above: Performed By: #### U RDS, UHCG, CUU, ADDONUAPLUS #### [place] [address] [place] Cannabinoid Screen,Urine Positive High Negative [facility] Comment on above: Result Comment: Thes e are unconfirmed results and should not be used for legal purposes. Drug Cut-Off Concentration: AMPH 1000 ng/mL SEEMA 200 ng/mL LAZ 200 ng/mL COCM 300 ng/mL OP 300 ng/mL PCP 25 ng/mL THC 20 ng/mL PERFORMED BY: [place] [address] PATHOLOGIST EMBROIDERY OPERATOR MALVIN MEDLEY M.D. Performed By: #### U RDS, UHCG, CUU, ADDONUAPLUS #### [place] [address] [place] Cocaine Screen,Urine Negative Normal Negative [facility] Comment on above: Performed By: #### U RDS, UHCG, CUU, ADDONUAPLUS #### [place] [address] [place] Opiate Screen,Urine Negative Normal Negative [facility] Comment on above: Performed By: #### U RDS, UHCG, CUU, ADDONUAPLUS #### [place] [address] [place] Phencyclidine Screen,Urine Negative Normal Negative [facility] Comment on above: Performed By: #### U RDS, UHCG, CUU, ADDONUAPLUS #### [address] ECG 12 lead ECGon 12-19-2022 ECG 12 lead ECG [facility] [place] [address] [place] [address] Electrocardiograph Report Signed Patient: Zuleika Wyatt MR#: [id number] : 1990 Acct:[id number] Age/Sex: 32 / F ADM Date: 12/19/22 Loc: 4 Room: [address] [place] [address] Type: DIS INOo Attending Dr: Arden Orozco [...] ECGs available Confirmed by OSCAR POE DO ([id number]) on 12/19/2022 10:18:39 PM Referred By: Electronically Signed By:OSCAR POE DO Transcribed By: MUS Signed By Oscar Poe DO 12/19 2218 Normal [facility] Electrolyteson 12-19-2022 Anion gap [Moles/Vol] 14.5 mmol/L Normal 6.0-15.0 [facility] Comment on above: Performed By: #### C BC, CREAT, GLU, LYTES, AST, ETOH, BARB, LIPASE, CK, BUN ####[address] Chloride [Moles/Vol] 105 mmol/L Normal 98-107 [facility] Comment on above: Performed By: #### C BC, CREAT, GLU, LYTES, AST, ETOH, BARB, LIPASE, CK, BUN ####[address] CO2 [Moles/Vol] 20.0 mmol/L Low 21.0-31.0 [facility] Comment on above: Performed By: #### C BC, CREAT, GLU, LYTES, AST, ETOH, BARB, LIPASE, CK, BUN ####[address] Potassium [Moles/Vol] 3.5 mmol/L Normal 3.5-5.1 [facility] Comment on above: Performed By: #### C BC, CREAT, GLU, LYTES, AST, ETOH, BARB, LIPASE, CK, BUN ####[address] Sodium [Moles/Vol] 136 mmol/L Normal 136-145 [facility] Comment on above: Performed By: #### C BC, CREAT, GLU, LYTES, AST, ETOH, BARB, LIPASE, CK, BUN ####[address] Ethyl Alcohol Profileon Ethanol [Mass/Vol] mg/dL Normal [facility] Comment on above: Performed By: #### C BC, CREAT, GLU, LYTES, AST, ETOH, BARB, LIPASE, CK, BUN ####[address] Percent Ethanol Not performed Normal [facility] Comment on above: Result Comment: PERF ORMED BY: [facility] [address] [place] [address] PATHOLOGIST EMBROIDERY OPERATOR MALVIN MEDLEY M.D. Performed By: #### C BC, CREAT, GLU, LYTES, AST, ETOH, BARB, LIPASE, CK, BUN ####[address] Glucoseon 12-19-2022 Glucose [Mass/Vol] 93 mg/dL Normal 70-100 [facility] Comment on above: Result Comment: [facility] Glucose Reference Range is dependent on time and content of last meal. Glucose of more than 200 mg/dL in a nonstressed, ambulatory subject supports the diagnosis of Diabetes Mellitus. ADA recommended reference range Performed By: #### C BC, CREAT, GLU, LYTES, AST, ETOH, BARB, LIPASE, CK, BUN ####[address] HCG ( test) IAclemencia d Ql (U)Ordered By: Oscar Poe on 12-19-2022 HCG ( test) Ql (U) Negative [facility] HCG,Qualitative Serumon HCG,Qualitative Serum Negative Normal [facility] Comment on above: Result Comment: PERF ORMED BY: [facility] [address] [place] [address] PATHOLOGIST EMBROIDERY OPERATOR MALVIN MEDLEY M.D. Performed By: #### H CGQUAL #### [facility] [address] [id number] [facility] HCG,Urineon 12-19-2022 Beta HCG ( test) Ql (U) Negative Normal [facility] Comment on above: Order Comment: Name Collection Type:: Clean-Voided Midstream Result Comment: PERF ORMED BY: [place] [address] PATHOLOGIST EMBROIDERY OPERATOR MALVIN MEDLEY M.D. Performed By: #### U RDS, UHCG, CUU, ADDONUAPLUS #### [facility] [address] Ketones Auto test strip (U) [Mass/Vol]Ordered By: Oscar Poe on 12-19-2022 Ketones (U) [Mass/Vol] 1+ Negative [facility] Laboratory - UrinalysisOrder ed By: Oscar Poe on 12-19-2022 Hyaline casts LM Ql (Urine sed) 0-8 [LPF] 0-8 [facility] Lipaseon 12-19-2022 Lipase [Catalytic activity/Vol] 29.0 U/L Normal 11.0-82.0 [facility] Comment on above: Result Comment: PERF ORMED BY: [place] [address] PATHOLOGIST EMBROIDERY OPERATOR MALVIN MEDLEY M.D. Performed By: #### C BC, CREAT, GLU, LYTES, AST, ETOH, BARB, LIPASE, CK, BUN ####[facility] [id number] Nitrite Test strip Ql (U)Ord ered By: Oscar Poe on 12-19-2022 Nitrite Ql (U) Negative Negative [facility] Opiates [Presence] in Urine by Screen methodOrdered By: Oscar Poe on 12-19-2022 Opiates Screen Ql (U) Negative Negative [facility] Phencyclidine Screen Ql (U)O rdered By: Oscar Poe on 12-19-2022 Phencyclidine Ql (U) Negative Negative [facility] Protein Auto test strip (U) [Mass/Vol]Ordered By: Oscar Poe on 12-19-2022 Protein (U) [Mass/Vol] Negative Negative [facility] Specific gravity Auto test s trip (U) [Rel density]Ordered By: Oscar Poe on 12-19-2022 Specific gravity (U) [Rel density] 1.025 1.001-1.030 [facility] Squamous epithelial cells de tection in urine sediment by light microscopyOrdered By: Oscar Poe on 12-19-2022 Epithelial cells.squamous LM Ql (Urine sed) 3-4 [HPF] 0-2 [facility] Type and Screenon 12-19-2022 ABO and Rh group Nom (Bld) Blood group A Rh(D) positive Normal [facility] Comment on above: Result Comment: PERF ORMED BY: [place] [address] PATHOLOGIST EMBROIDERY OPERATOR MALVIN MEDLEY M.D. Urine Cultureon 12-19-2022 Bacteria identified Cx Nom (U) >100,000 colonies/ml mixed bacterial skin contaminants 2 Days PERFORMED BY: [place] [address] PATHOLOGIST EMBROIDERY OPERATOR MALVIN MEDLEY M.D. Normal [facility] Comment on above: Performed By: #### U RDS, UHCG, CUU, ADDONUAPLUS ####[facility] [id number] [facility] Urine bacteria detection by automated methodOrdered By: Oscar Poe on 12-19-2022 Bacteria Auto Ql (U) None seen None Seen [facility] Urine clarity by refractomet ry automatedOrdered By: Oscar Poe on 12-19-2022 Clarity Refractometry automated (U) Clear Clear [facility] Urine culture routineOrdered By: Oscar Poe on 12-19-2022 Bacteria identified Cx Nom (U) 2 Days [facility] Urine glucose measurement by automated test strip (mass/volume)Ordered By: Oscar Poe on 12-19-2022 Glucose Auto test strip (U) [Mass/Vol] Normal mg/dL Normal [facility] Urine hemoglobin detection b y automated test stripOrdered By: Oscar Poe on 12-19-2022 Hemoglobin Auto test strip Ql (U) Negative Negative [facility] Urine leukocyte esterase det ection by automated test stripOrdered By: Oscar Poe on 12-19-2022 Leukocyte esterase Auto test strip Ql (U) 2+ Negative [facility] Urobilinogen Auto test strip (U) [Mass/Vol]Ordered By: Oscar Poe on 12-19-2022 Urobilinogen (U) [Mass/Vol] Normal mg/dL Normal [facility] XR knee BI 2Von 12-19-2022 XR knee BI 2V [facility] [place] [address] XRay Report Signed Patient: Zuleika Wyatt MR#: [id number] : 1990 Acct:[id number] Age/Sex: 32 / F ADM Date: 12/19/22 Loc: Room: [address] [place] [address] Type: ADM INOo Attending Dr: Arden Orozco DO Copies to: DO Arden Jefferson DO Ordering Provider: Oscar Poe DO Date of Service: 12/18/22 XR/XR knee BI 2V: f ([id number]) XR/XR chest 1V portable: TRAUMATIC INJURY ([id number]) XR/XR pelvis 1-2V: f ([id number]) XR/XR foot LT 2V: f CLINICAL DATA: [...] Adela Mahan M.D.12/19/2022 10:41 AM Dictation Location: [place] [address] Transcribed By: [facility] 12/19/22 1041 Dictated By: Adela Mahan MD 12/19/22 1036 Signed By: 12/19/22 1041 Normal [facility] pH Auto test strip (U)Ordere d By: Oscar Poe on 12-19-2022 pH (U) 5.5 [pH] 5.0-9.0 [facility] Amylase [Enzymatic activity/ volume] in Serum or PlasmaOrdered By: Oscar Poe on 12-18-2022 Amylase [Catalytic activity/Vol] 35 U/L 29-103 [facility] Aspartate aminotransferase [ Enzymatic activity/volume] in Serum or PlasmaOrdered By: Oscar Poe on 12-18-2022 AST [Catalytic activity/Vol] 26 U/L 13-39 [facility] Basophils Auto (Bld) [#/Vol] Ordered By: Oscar Poe on 12-18-2022 Basophils (Bld) [#/Vol] 0.1 10*3/uL 0.0-0.2 [facility] Basophils/100 WBC Auto (Bld) Ordered By: Oscar Poe on 12-18-2022 Basophils/100 WBC (Bld) 0.7 % . [facility] Carbon dioxide, total [Moles /volume] in Serum or PlasmaOrdered By: Oscar Poe on 12-18-2022 CO2 [Moles/Vol] 20.0 mmol/L 21.0-31.0 [facility] Chloride [Moles/volume] in S gwendolyn or PlasmaOrdered By: Oscar Poe on 12-18-2022 Chloride [Moles/Vol] 105 mmol/L 98-107 [facility] Choriogonadotropin.beta subu nit [Units/volume] in Serum or PlasmaOrdered By: Oscar Poe on 12-18-2022 HCG.beta subunit Qn Negative [facility] Creatine kinase [Enzymatic a ctivity/volume] in Serum or PlasmaOrdered By: Oscar Poe on 12-18-2022 CK [Catalytic activity/Vol] 50 U/L 30-223 [facility] Creatinine [Mass/volume] in Serum or PlasmaOrdered By: Oscar Poe on 12-18-2022 Creatinine [Mass/Vol] 0.84 mg/dL 0.60-1.20 [facility] Eosinophils Auto (Bld) [#/Vo l]Ordered By: Oscar Poe on 12-18-2022 Eosinophils (Bld) [#/Vol] 0.0 10*3/uL 0.0-0.45 [facility] Eosinophils/100 WBC Auto (Bl d)Ordered By: Oscar Poe on 12-18-2022 Eosinophils/100 WBC (Bld) 0.2 % . [facility] Erythrocyte distribution wid th Auto (RBC) [Ratio]Ordered By: Oscar Poe on 12-18-2022 Erythrocyte distribution width (RBC) [Ratio] 14.4 % 11.9-15.3 [facility] Ethanol [Mass/volume] in Ser um or PlasmaOrdered By: Oscar Poe on 12-18-2022 Ethanol [Mass/Vol] mg/dL [facility] Ethanol [Mass/Vol] TNP [facility] Comment on above: Test not performed Glucose [Mass/volume] in Ser um or PlasmaOrdered By: Oscar Poe on 12-18-2022 Glucose [Mass/Vol] 93 mg/dL 70-100 [facility] Comment on above: ADA recommended refe rence rangeRandom Glucose Reference Range is dependent on time and content of last meal. Glucose of more than 200 mg/dL in a nonstressed, ambulatory subject supports the diagnosis of Diabetes Mellitus. Hematocrit Auto (Bld) [Volum e fraction]Ordered By: Oscar Poe on 12-18-2022 Hematocrit (Bld) [Volume fraction] 36.2 % 34.0-46.4 [facility] Hemoglobin [Mass/volume] in BloodOrdered By: Oscar Poe on 12-18-2022 Hemoglobin (Bld) [Mass/Vol] 11.9 g/dL 11.8-15.4 [facility] Leukocytes [#/volume] correc osmel for nucleated erythrocytes in Blood by Automated counOrdered By: Oscar Poe on 12-18-2022 WBC corrected for nucl RBC Auto (Bld) [#/Vol] 10.3 10*3/uL 3.8-11.6 [facility] Lipase [Enzymatic activity/v olume] in Serum or PlasmaOrdered By: Oscar Poe on 12-18-2022 Lipase [Catalytic activity/Vol] 29.0 U/L 11.0-82.0 [facility] Lymphocytes Auto (Bld) [#/Vo l]Ordered By: Oscar Poe on 12-18-2022 Lymphocytes (Bld) [#/Vol] 2.2 10*3/uL 1.00-4.8 [facility] Lymphocytes/100 WBC Auto (Bl d)Ordered By: Oscar Poe on 12-18-2022 Lymphocytes/100 WBC (Bld) 21.8 % . [facility] MCH Auto (RBC) [Entitic mass ]Ordered By: Oscar Poe on 12-18-2022 MCH (RBC) [Entitic mass] 26.9 pg 24.7-34.3 [facility] MCHC Auto (RBC) [Mass/Vol]Or dered By: Oscar Poe on 12-18-2022 MCHC (RBC) [Mass/Vol] 32.8 g/dL 32.0-35.0 [facility] MCV Auto (RBC) [Entitic vol] Ordered By: Oscar Poe on 12-18-2022 MCV (RBC) [Entitic vol] 82.1 fL 80-100 [facility] Monocyte distribution width [Entitic volume] in Blood by AutomatedOrdered By: Oscar Poe on 12-18-2022 Monocyte distribution width Auto (Bld) [Entitic vol] 22.19 % 0.00-20.00 [facility] Comment on above: For adults in ED, MD W > 20.0 may be associated with a higher risk of sepsis during the first 12 hrs of hospital admission Monocytes Auto (Bld) [#/Vol] Ordered By: Oscar Poe on 12-18-2022 Monocytes (Bld) [#/Vol] 0.8 10*3/uL 0.0-0.8 [facility] Monocytes/100 WBC Auto (Bld) Ordered By: Oscar Poe on 12-18-2022 Monocytes/100 WBC (Bld) 7.4 % . [facility] Neutrophils Auto (Bld) [#/Vo l]Ordered By: Oscar Poe on 12-18-2022 Neutrophils (Bld) [#/Vol] 7.2 10*3/uL 1.8-7.7 [facility] Neutrophils/100 WBC Auto (Bl d)Ordered By: Oscar Poe on 12-18-2022 Neutrophils/100 WBC (Bld) 69.9 % . [facility] No Panel InformationOrdered By: Oscar Poe on 12-18-2022 Estimated GFR (CKD-EPI) > 60.0 mL/Min [facility] Creatinine Clearance (Chem 98.76 [facility] Nucleated erythrocytes [Pres ence] in Blood by Automated countOrdered By: Oscar Poe on 12-18-2022 Nucleated RBC Auto Ql (Bld) 0.1 /100{WBC} 0-0.5 [facility] Platelet mean volume Auto (B ld) [Entitic vol]Ordered By: Oscar Poe on 12-18-2022 Platelet mean volume (Bld) [Entitic vol] 8.1 fL 6.3-10.7 [facility] Platelets Auto (Bld) [#/Vol] Ordered By: Oscar Poe on 12-18-2022 Platelets (Bld) [#/Vol] 223 10*3/uL 150-450 [facility] Potassium [Moles/volume] in Serum or PlasmaOrdered By: Oscar Poe on 12-18-2022 Potassium [Moles/Vol] 3.5 mmol/L 3.5-5.1 [facility] RBC Auto (Bld) [#/Vol]Ordere d By: Oscar Poe on 12-18-2022 RBC (Bld) [#/Vol] 4.42 10*6/uL 3.60-5.00 [facility] Serum or plasma anion gap de terminationOrdered By: Oscar Poe on 12-18-2022 Anion gap [Moles/Vol] 14.5 mmol/L 6.0-15.0 [facility] Sodium [Moles/volume] in Ser um or PlasmaOrdered By: Oscar Poe on 12-18-2022 Sodium [Moles/Vol] 136 mmol/L 136-145 [facility] Urea nitrogen [Mass/volume] in Serum or PlasmaOrdered By: Oscar Poe on 12-18-2022 Urea nitrogen [Mass/Vol] 21 mg/dL 7-25 [facility] WBC Auto (Bld) [#/Vol]Ordere d By: Oscar Poe on 12-18-2022 WBC (Bld) [#/Vol] 10.3 10*3/uL 3.8-11.6 [facility] PRBC LEUKOREDUCEDon 07-14-19 23 ABO and Rh group Nom (Bld) Cross Match Result Compatible Unit Blood Type A Pos Unit Number [id number] Status Information Released Specimen Exp Date Product ID Red Blood Cells Product Code [id number] Cross Match Result Compatible Unit Blood Type A Pos Unit Number [id number] Status Information Transfused Product ID Red Blood Cells Product Code [id number] Normal [facility] Comment on above: Performed By: #### R UBIGG #### [facility] [address] [place] [address] Dr. Juan Antonio Ibarra CBC AUTO DIFFon 07-07-2022 BASO # 0.0 103/ul Normal 0.0-0.1 [facility] Comment on above: Performed By: #### A 1C #### [facility] [address] [address] [address] Juan Antonio Ibarra Basophils/100 WBC (Bld) 0.3 % Normal 0.2-2.0 [facility] Comment on above: Performed By: #### A 1C #### [facility] [address] [address] [address] Juan Antonio Ibarra EO # 0.1 103/ul Normal 0.0-0.7 [facility] Comment on above: Performed By: #### A 1C #### [facility] [address] [place] [address] Dr. Juan Antonio Ibarra Eosinophils/100 WBC (Bld) 0.9 % Normal 0.9-7.0 [facility] Comment on above: Performed By: #### A 1C #### [facility] [address] [place] [address] Dr. Juan Antonio Ibarra Erythrocyte distribution width (RBC) [Ratio] 14.5 % Normal 11.0-15.0 [facility] Comment on above: Performed By: #### A 1C #### [facility] [address] [place] [address] Dr. Juan Antonio Ibarra Hematocrit (Bld) [Volume fraction] 22.5 % Critically low 36.0-48.0 [facility] Comment on above: Performed By: #### A 1C #### [facility] [address] [place] [address] Dr. Juan Antonio Ibarra Hemoglobin (Bld) [Mass/Vol] 7.9 g/dL Critically low 12.0-16.0 [facility] Comment on above: Performed By: #### A 1C #### [facility] [address] [place] [address] Dr. Juan Antonio Ibarra IG # 0.10 10e3/ul Critically high 0.00-0.03 [facility] Comment on above: Performed By: #### A 1C #### [facility] [address] [place] [address] Dr. Juan Antonio Ibarra IG % 0.9 % Critically high 0.0-0.5 [facility] Comment on above: Performed By: #### A 1C #### [facility] [address] [place] [address] Dr. Juan Antonio Ibarra LYMPH # 1.6 103/ul Normal 1.2-3.8 [facility] Comment on above: Performed By: #### A 1C #### [facility] [address] [place] [address] Dr. Juan Antonio Ibarra Lymphocytes/100 WBC (Bld) 14.0 % Critically low 20.5-60.0 [facility] Comment on above: Performed By: #### A 1C #### [facility] [address] [place] [address] Dr. Juan Antonio Ibarra MANUAL DIFF REQ NO Normal [facility] Comment on above: Performed By: #### A 1C #### [facility] [address] [place] [address] Dr. Juan Antonio Ibarra MCH (RBC) [Entitic mass] 26.4 pg Critically low 26.7-34.0 [facility] Comment on above: Performed By: #### A 1C #### [facility] [address] [place] [address] Dr. Juan Antonio Ibarra MCHC (RBC) [Mass/Vol] 35.1 g/dL Normal 29.9-35.2 [facility] Comment on above: Performed By: #### A 1C #### [facility] [address] [place] [address] Dr. Juan Antonio Ibarra MCV (RBC) [Entitic vol] 75.3 fL Critically low 81.0-99.0 [facility] Comment on above: Performed By: #### A 1C #### [facility] [address] [place] [address] Dr. Juan Antonio Ibarra MONO # 0.7 103/ul Normal 0.3-0.8 [facility] Comment on above: Performed By: #### A 1C #### [facility] [address] [place] [address] Dr. Juan Antonio Ibarra Monocytes/100 WBC (Bld) 6.2 % Normal 1.7-12.0 [facility] Comment on above: Performed By: #### A 1C #### [facility] [address] [place] [address] Dr. Juan Antonio Ibarra NEUT # 9.1 103/ul Critically high 1.4-6.5 [facility] Comment on above: Performed By: #### A 1C #### [facility] [address] [place] [address] Dr. Juan Antonio Ibarra Neutrophils/100 WBC (Bld) 77.7 % Critically high 43.0-75.0 [facility] Comment on above: Performed By: #### A 1C #### [facility] [address] [place] [address] Dr. Juan Antonio Ibarra Platelet mean volume (Bld) [Entitic vol] 9.2 fL Critically low 9.5-13.5 [facility] Comment on above: Performed By: #### A 1C #### [facility] [address] [place] [address] Dr. Juan Antonio Ibarra PLT 143 103/ul Critically low 150-450 [facility] Comment on above: Performed By: #### A 1C #### [facility] [address] [place] [address] Dr. Juan Antonio Ibarra RBC 2.99 106/ul Critically low 4.20-5.40 [facility] Comment on above: Performed By: #### A 1C #### [facility] [address] [place] [address] Dr. Juan Antonio Ibarra WBC 11.7 103/ul Critically high 4.0-11.0 [facility] Comment on above: Performed By: #### A 1C #### [facility] [address] [place] [address] Dr. Juan Antonio Ibarra CBC AUTO DIFFon 07-06-2022 BASO # 0.0 103/ul Normal 0.0-0.1 [facility] Comment on above: Performed By: #### A 1C #### [facility] [address] [place] [address] Dr. Juan Antonio Ibarra Basophils/100 WBC (Bld) 0.3 % Normal 0.2-2.0 [facility] Comment on above: Performed By: #### A 1C #### [facility] [address] [place] [address] Dr. Juan Antonio Ibarra EO # 0.1 103/ul Normal 0.0-0.7 [facility] Comment on above: Performed By: #### A 1C #### [facility] [address] [place] [address] Dr. Juan Antonio Ibarra Eosinophils/100 WBC (Bld) 0.8 % Critically low 0.9-7.0 [facility] Comment on above: Performed By: #### A 1C #### [facility] [address] [place] [address] Dr. Juan Antonio Ibarra Erythrocyte distribution width (RBC) [Ratio] 14.3 % Normal 11.0-15.0 [facility] Comment on above: Performed By: #### A 1C #### [facility] [address] [place] [address] Dr. Juan Antonio Ibarra Hematocrit (Bld) [Volume fraction] 23.0 % Critically low 36.0-48.0 [facility] Comment on above: Performed By: #### A 1C #### [facility] [address] [place] [address] Dr. Juan Antonio Ibarra Hemoglobin (Bld) [Mass/Vol] 7.5 g/dL Critically low 12.0-16.0 [facility] Comment on above: Performed By: #### A 1C #### [facility] [address] [place] [address] Dr. Juan Antonio Ibarra IG # 0.07 10e3/ul Critically high 0.00-0.03 [facility] Comment on above: Performed By: #### A 1C #### [facility] [address] [place] [address] Dr. Juan Antonio Ibarra IG % 0.6 % Critically high 0.0-0.5 [facility] Comment on above: Performed By: #### A 1C #### [facility] [address] [place] [address] Dr. Juan Antonio Ibarra LYMPH # 2.1 103/ul Normal 1.2-3.8 [facility] Comment on above: Performed By: #### A 1C #### [facility] [address] [place] [address] Dr. Juan Antonio Ibarra Lymphocytes/100 WBC (Bld) 18.8 % Critically low 20.5-60.0 [facility] Comment on above: Performed By: #### A 1C #### [facility] [address] [place] [address] Dr. Juan Antonio Ibarra MANUAL DIFF REQ NO Normal [facility] Comment on above: Performed By: #### A 1C #### [facility] [address] [place] [address] Dr. Juan Antonio Ibarra MCH (RBC) [Entitic mass] 26.0 pg Critically low 26.7-34.0 [facility] Comment on above: Performed By: #### A 1C #### [facility] [address] [place] [address] Dr. Juan Antonio Ibarra MCHC (RBC) [Mass/Vol] 32.6 g/dL Normal 29.9-35.2 [facility] Comment on above: Performed By: #### A 1C #### [facility] [address] [place] [address] Dr. Juan Antonio Ibarra MCV (RBC) [Entitic vol] 79.9 fL Critically low 81.0-99.0 [facility] Comment on above: Performed By: #### A 1C #### [facility] [address] [place] [address] Dr. Juan Antonio Ibarra MONO # 0.7 103/ul Normal 0.3-0.8 [facility] Comment on above: Performed By: #### A 1C #### [facility] [address] [place] [address] Dr. Juan Antonio Ibarra Monocytes/100 WBC (Bld) 6.6 % Normal 1.7-12.0 [facility] Comment on above: Performed By: #### A 1C #### [facility] [address] [place] [address] Dr. Juan Antonio Ibarra NEUT # 8.2 103/ul Critically high 1.4-6.5 [facility] Comment on above: Performed By: #### A 1C #### [facility] [address] [place] [address] Dr. Juan Antonio Ibarra Neutrophils/100 WBC (Bld) 72.9 % Normal 43.0-75.0 [facility] Comment on above: Performed By: #### A 1C #### [facility] [address] [place] [address] Dr. Juan Antonio Ibarra Platelet mean volume (Bld) [Entitic vol] 9.8 fL Normal 9.5-13.5 [facility] Comment on above: Performed By: #### A 1C #### [facility] [address] [place] [address] Dr. Juan Antonio Ibarra PLT 151 103/ul Normal 150-450 [facility] Comment on above: Performed By: #### A 1C #### [facility] [address] [place] [address] Dr. Juan Antonio Ibarra RBC 2.88 106/ul Critically low 4.20-5.40 [facility] Comment on above: Performed By: #### A 1C #### [facility] [address] [place] [address] Dr. Juan Antonio Ibarra WBC 11.3 103/ul Critically high 4.0-11.0 [facility] Comment on above: Performed By: #### A 1C #### [facility] [address] [place] [address] Dr. Juan Antonio Ibarra CBC AUTO DIFFon 07-05-2022 BASO # 0.0 103/ul Normal 0.0-0.1 [facility] Comment on above: Performed By: #### R PRQ #### [facility] [address] [place] [address] Dr. Juan Antonio Ibarra Basophils/100 WBC (Bld) 0.2 % Normal 0.2-2.0 [facility] Comment on above: Performed By: #### R PRQ #### [facility] [address] [place] [address] Dr. Juan Antonio Ibarra EO # 0.0 103/ul Normal 0.0-0.7 [facility] Comment on above: Performed By: #### R PRQ #### [facility] [address] [place] [address] Dr. Juan Antonio Ibarra Eosinophils/100 WBC (Bld) 0.4 % Critically low 0.9-7.0 [facility] Comment on above: Performed By: #### R PRQ #### [facility] [address] [place] [address] Dr. Juan Antonio Ibarra Erythrocyte distribution width (RBC) [Ratio] 14.2 % Normal 11.0-15.0 [facility] Comment on above: Performed By: #### R PRQ #### [facility] [address] [place] [address] Dr. Juan Antonio Ibarra Hematocrit (Bld) [Volume fraction] 31.0 % Critically low 36.0-48.0 [facility] Comment on above: Performed By: #### R PRQ #### [facility] [address] [place] [address] Dr. Juan Antonio Ibarra Hemoglobin (Bld) [Mass/Vol] 10.1 g/dL Critically low 12.0-16.0 [facility] Comment on above: Performed By: #### R PRQ #### [facility] [address] [place] [address] Dr. Juan Antonio Ibarra IG # 0.10 10e3/ul Critically high 0.00-0.03 [facility] Comment on above: Performed By: #### R PRQ #### [facility] [address] [place] [address] Dr. Juan Antonio Ibarra IG % 1.1 % Critically high 0.0-0.5 [facility] Comment on above: Performed By: #### R PRQ #### [facility] [address] [place] [address] Dr. Juan Antonio Ibarra LYMPH # 1.6 103/ul Normal 1.2-3.8 [facility] Comment on above: Performed By: #### R PRQ #### [facility] [address] [place] [address] Dr. Juan Antonio Ibarra Lymphocytes/100 WBC (Bld) 17.5 % Critically low 20.5-60.0 [facility] Comment on above: Performed By: #### R PRQ #### [facility] [address] [place] [address] Dr. Juan Antonio Ibarra MANUAL DIFF REQ NO Normal [facility] Comment on above: Performed By: #### R PRQ #### [facility] [address] [place] [address] Dr. Juan Antonio Ibarra MCH (RBC) [Entitic mass] 25.8 pg Critically low 26.7-34.0 [facility] Comment on above: Performed By: #### R PRQ #### [facility] [address] [place] [address] Dr. Juan Antonio Ibarra MCHC (RBC) [Mass/Vol] 32.6 g/dL Normal 29.9-35.2 [facility] Comment on above: Performed By: #### R PRQ #### [facility] [address] [place] [address] Dr. Juan Antonio Ibarra MCV (RBC) [Entitic vol] 79.3 fL Critically low 81.0-99.0 [facility] Comment on above: Performed By: #### R PRQ #### [facility] [address] [place] [address] Dr. Juan Antonio Ibarra MONO # 0.7 103/ul Normal 0.3-0.8 [facility] Comment on above: Performed By: #### R PRQ #### [facility] [address] [place] [address] Dr. Juan Antonio Ibarra Monocytes/100 WBC (Bld) 8.1 % Normal 1.7-12.0 [facility] Comment on above: Performed By: #### R PRQ #### [facility] [address] [place] [address] Dr. Juan Antonio Ibarra NEUT # 6.7 103/ul Critically high 1.4-6.5 [facility] Comment on above: Performed By: #### R PRQ #### [facility] [address] [place] [address] Dr. Juan Antonio Ibarra Neutrophils/100 WBC (Bld) 72.7 % Normal 43.0-75.0 [facility] Comment on above: Performed By: #### R PRQ #### [facility] [address] [place] [address] Dr. Juan Antonio Ibarra Platelet mean volume (Bld) [Entitic vol] 10.1 fL Normal 9.5-13.5 [facility] Comment on above: Performed By: #### R PRQ #### [facility] [address] [place] [address] Dr. Juan Antonio Ibarra PLT 202 103/ul Normal 150-450 [facility] Comment on above: Performed By: #### R PRQ #### [facility] [address] [place] [address] Dr. Juan Antonio Ibarra RBC 3.91 106/ul Critically low 4.20-5.40 [facility] Comment on above: Performed By: #### R PRQ #### [facility] [address] [place] [address] Dr. Juan Antonio Ibarra WBC 9.2 103/ul Normal 4.0-11.0 [facility] Comment on above: Performed By: #### R PRQ #### [facility] [address] [place] [address] Dr. Juan Antonio Ibarra DRUG SCREEN RAPID (URINE)on 07-05-2022 AMP Negative Normal NEGATIVE [facility] Comment on above: Performed By: #### A 1C #### [facility] [address] [place] [address] Dr. Juan Antonio Ibarra BAR Negative Normal NEGATIVE [facility] Comment on above: Performed By: #### A 1C #### [facility] [address] [place] [address] Dr. Juan Antonio Ibarra BUP Negative Normal NEGATIVE [facility] Comment on above: Performed By: #### A 1C #### [facility] [address] [place] [address] Dr. Juan Antonio Ibarra BZO Negative Normal NEGATIVE [facility] Comment on above: Performed By: #### A 1C #### [facility] [address] [place] [address] Dr. Juan Antonio Ibarra PARAM Negative Normal NEGATIVE [facility] Comment on above: Performed By: #### A 1C #### [facility] [address] [place] [address] Dr. Juan Antonio Ibarra CUT-OFFS SEE BELOW Normal [facility] Comment on above: Result Comment: AMP [...] ng/mL Performed By: #### A 1C #### [facility] [address] [place] [address] Dr. Juan Antonio Ibarra DRUG CUT HEADER DRUG CLASS TEST SYST EM CUT-OFF CONCENTRATIONS ARE FOLLOWS: Normal [facility] Comment on above: Performed By: #### A 1C #### [facility] [address] [place] [address] Dr. Juan Antonio Ibarra mAMP Negative Normal NEGATIVE [facility] Comment on above: Performed By: #### A 1C #### [facility] [address] [place] [address] Dr. Juan Antonio Ibarra MTD Negative Normal NEGATIVE [facility] Comment on above: Performed By: #### A 1C #### [facility] [address] [place] [address] Dr. Juan Antonio Ibarra OPI Negative Normal NEGATIVE [facility] Comment on above: Performed By: #### A 1C #### [facility] [address] [place] [address] Dr. Juan Antonio Ibarra OXY Negative Normal NEGATIVE [facility] Comment on above: Performed By: #### A 1C #### [facility] [address] [place] [address] Dr. Juan Antonio Ibarra PCP Negative Normal NEGATIVE [facility] Comment on above: Performed By: #### A 1C #### [facility] [address] [place] [address] Dr. Juan Antonio Ibarra PPX Negative Normal NEGATIVE [facility] Comment on above: Performed By: #### A 1C #### [facility] [address] [place] [address] Dr. Juan Antonio Ibarra TCA Negative Normal NEGATIVE [facility] Comment on above: Performed By: #### A 1C #### [facility] [address] [place] [address] Dr. Juan Antonio Ibarra THC Negative Normal NEGATIVE [facility] Comment on above: Performed By: #### A 1C #### [facility] [address] [place] [address] Dr. Juan Antonio Ibarra TYPE AND SCREENon 07-05-2022 TYPE AND SCREEN Negative Normal [facility] Comment on above: Performed By: #### T NS #### [facility] [address] [address] [address] Juan Antonio Ibarra US PREG BIOPHY [...] FELECIA GOLDMAN Date: 2022-06-28 15:29 Normal [facility] US PREG BIOPHY W NON STRESSo [...] by: FELECIA GOLDMAN Date: 2022-06-21 17:20 Normal [facility] US PREG GROWTHon 06-21-2022 US PREG GROWTH [...] GAMALIEL CRUMP Date: 2022-06-21 13:37 Normal [facility] CULTURE URINEon 06-16-2022 CULTURE URINE Culture Observations : LIGHT GROWTH OF MIXED GENITAL ALONSO. NO POTENTIAL PATHOGENS SEEN. Normal [facility] Comment on above: Performed By: #### U RCX #### [facility] [address] [place] [address] Dr. Juan Antonio Ibarra UA (CLEAN/CATCH) RETORT ENGINEER/MICRO I F IND.on 06-16-2022 Bilirubin Ql (U) Negative Normal NEGATIVE [facility] Comment on above: Performed By: #### U MICRO, UACSIND #### [facility] [address] [place] [address] Dr. Juan Antonio Ibarra Clarity (U) CLEAR Normal CLEAR [facility] Comment on above: Performed By: #### U MICRO, UACSIND #### [facility] [address] [place] [address] Dr. Juan Antonio Ibarra Color (U) LT. YELLOW Normal YELLOW [facility] Comment on above: Performed By: #### U MICRO, UACSIND #### [facility] [address] [place] [address] Dr. Juan Antonio Ibarra Glucose Ql (U) Negative Normal NEGATIVE [facility] Comment on above: Performed By: #### U MICRO, UACSIND #### [facility] [address] [place] [address] Dr. Juan Antonio Ibarra Hemoglobin Ql (U) Negative Normal NEGATIVE [facility] Comment on above: Performed By: #### U MICRO, UACSIND #### [facility] [address] [address] [address] Juan Antoino Ibarra Ketones Ql (U) Negative Normal NEGATIVE [facility] Comment on above: Performed By: #### U MICRO, UACSIND #### [facility] [address] [place] [address] Dr. Juan Antonio Ibarra LEUKOCYTES MODERATE Abnormal NEGATIVE [facility] Comment on above: Performed By: #### U MICRO, UACSIND #### [facility] [address] [address] [address] Juan Antonio Ibarra Nitrite Ql (U) Negative Normal NEGATIVE [facility] Comment on above: Performed By: #### U MICRO, UACSIND #### [facility] [address] [address] [address] Juan Antonio Ibarra pH (U) 6.0 [pH] Normal 5-9 [facility] Comment on above: Performed By: #### U MICRO, UACSIND #### [facility] [address] [place] [address] Dr. Juan Antonio Ibarra SPEC GRAVITY 1.020 Normal 1.005-<=1.0 25 [facility] Comment on above: Performed By: #### U MICRO, UACSIND #### [facility] [address] [address] [address] Juan Antonio Ibarra UA PROTEIN Negative Normal NEGATIVE/ TRACE [facility] Comment on above: Performed By: #### U MICRO, UACSIND #### [facility] [address] [address] [address] Juan Antonio Ibarra UR MICRO IND INDICATED Normal [facility] Comment on above: Performed By: #### U MICRO, UACSIND #### [facility] [address] [address] [address] Juan Antonio Ibarra Urobilinogen Qn (U) 1.0 {Pamela'U}/dL Normal 0.2 - 1. 0 [facility] Comment on above: Performed By: #### U MICRO, UACSIND #### [facility] [address] [place] [address] Dr. Juan Antonio Ibarra URINE MICROSCOPIC ONLYon BACTERIA SMALL Abnormal NONE SEEN [facility] Comment on above: Performed By: #### U MICRO, UACSIND #### [facility] [address] [address] [address] Juan Antonio Ibarra Bacteria identified Cx Nom (U) INDICATED Normal [facility] Comment on above: Performed By: #### U MICRO, UACSIND #### [facility] [address] [place] [address] Dr. Juan Antonio Ibarra CAST NONE SEEN Normal NONE SEEN [facility] Comment on above: Performed By: #### U MICRO, UACSIND #### [facility] [address] [address] [address] Juan Antonio Ibarra Crystals LM Nom (Urine sed) NONE SEEN Normal NONE SEEN [facility] Comment on above: Performed By: #### U MICRO, UACSIND #### [facility] [address] [place] [address] Dr. Juan Antonio Ibarra Epithelial cells LM Ql (Urine sed) RARE Normal NONE SEEN /RARE [facility] Comment on above: Performed By: #### U MICRO, UACSIND #### [facility] [address] [place] [address] Dr. Juan Antonio Ibarra MUCOUS NONE SEEN Normal NONE SEEN [facility] Comment on above: Performed By: #### U MICRO, UACSIND #### [facility] [address] [place] [address] Dr. Juan Antonio Ibarra RBC NONE SEEN Abnormal 0-2 [facility] Comment on above: Performed By: #### U MICRO, UACSIND #### [facility] [address] [place] [address] Dr. Juan Antonio Ibarra WBC 2-5 Abnormal NONE SEEN [facility] Comment on above: Performed By: #### U MICRO, UACSIND #### [facility] [address] [place] [address] Dr. Juan Antonio Ibarra GROUP B STREP CULTUREon - S. agalactiae Ag Ql (Unsp spec) Culture Observations: NEGATIVE FOR GROUP B STREPTOCOCCUS. Normal [facility] Comment on above: Performed By: #### G BSCX #### [facility] [address] [address] [address] Juan Antonio Ibarra PREG BIOPHY W [...] by: GAMALIEL CRUMP Date: 2022-06-14 16:10 Normal [facility] US PREG BIOPHY W NON STRESSo n [...] FELECIA GOLDMAN Date: 2022-06-07 16:42 Normal [facility] US PREG BIOPHY W NON STRESSo [...] by: FELECIA GOLDMAN Date: 2022-06-04 17:11 Normal [facility] US PREG BIOPHY W NON STRESS EXAMINATION: [...] by: FELECIA GOLDMAN Date: 2022-06-04 16:23 Normal [facility] US PREG BIOPHY W NON STRESSo n [...] by: GAMALIEL CRUMP Date: 2022-05-31 18:39 Normal [facility] US PREG BIOPHY W NON STRESSo n [...] by: FELECIA GOLDMAN Date: 2022-05-24 16:34 Normal [facility] US PREG GROWTHon 05-24-2022 US PREG GROWTH [...] FELECIA GOLDMAN Date: 2022-05-24 16:33 Normal [facility] GLUCOSE - 1HRon 04-04-2022 Glucose [Mass/Vol] 101 mg/dL Normal 74-106 [facility] Comment on above: Performed By: #### R PRQ #### [facility] [address] [address] [address] Juan Antonio Ibarra HEMOGRAM AND PLATELon 2021 Hematocrit (Bld) [Volume fraction] 33.5 % Critically low 36.0-48.0 [facility] Comment on above: Performed By: #### A 1C #### [facility] [address] [address] [address] Juan Antonio Ibarra Hemoglobin (Bld) [Mass/Vol] 10.7 g/dL Critically low 12.0-16.0 [facility] Comment on above: Performed By: #### A 1C #### [facility] [address] [address] [address] Juan Antonio Ibarra MCH (RBC) [Entitic mass] 29.3 pg Normal 26.7-34.0 [facility] Comment on above: Performed By: #### A 1C #### [facility] [address] [address] [address] Juan Antonio Ibarra MCHC (RBC) [Mass/Vol] 31.9 g/dL Normal 29.9-35.2 [facility] Comment on above: Performed By: #### A 1C #### [facility] [address] [place] [address] Dr. Juan Antonio Ibarra MCV (RBC) [Entitic vol] 91.8 fL Normal 81.0-99.0 [facility] Comment on above: Performed By: #### A 1C #### [facility] [address] [place] [address] Dr. Juan Antonio Ibarra PLT 179 103/ul Normal 150-450 [facility] Comment on above: Performed By: #### A 1C #### [facility] [address] [place] [address] Dr. Juan Antonio Ibarra RBC 3.65 106/ul Critically low 4.20-5.40 [facility] Comment on above: Performed By: #### A 1C #### [facility] [address] [place] [address] Dr. Juan Antonio Ibarra WBC 9.9 103/ul Normal 4.0-11.0 [facility] Comment on above: Performed By: #### A 1C #### [facility] [address] [place] [address] Dr. Juan Antonio Ibarra US PREG REEVAL [...] FELECIA GOLDMAN Date: 2022-03-20 20:55 Normal [facility] US PREG ANATOMY SINGLEon US PREG [...] by: FELECIA GOLDMAN Date: 2022-02-22 16:46 Normal [facility] Coding Summaryon 02-14-2022 Coding Summary HTMLBase 64 NeeeotjxGLb5kEl+PGhlYWQ+PE 5WTWHlY50ndAUokE5AW9tFYL1U JMEWZSIWST5QIN1chMB3WAsxS2 VybiAv CkymoLZiBE51KFu8BPW5dEjsHP szfQ0hkGWkU7x1QxZmBH73nP23 ZZtaDMUpWyP4QcIrmrrzbAPe N0qyOoRpjZMiVed+PHRhYmxlIH zpPEAtXTxbWIVgTuVrdRqfFW9t Aq8zTJWqMSRbdVvmvQEaKdRf r1snNIPtVHieAN2jaVtcY1JyyS V1GQOck3m6Bl56rLB+PHRkIHN0 iKquZFxmy461HiRmq6wtCUK6 cCCuXCliJJE0L36rh7A4UDKuRH BjVWU3vMY8tF6tcBwzxgdvS1Vh qGQqNaK7OLN7wMQpyO5vaDpx mfmxmW3qBul+J56WRX1SJECGWG 1TBwe9C1FwHetopHE+UG16UTGa BE09cXXjtGIiw9saoIy6QzHc MHJrLCA7kUqaQDvec7BcXQXcD2 2anUYlj9Y8DZCnxImesXTaHwQe xYS5wP7yNTrphwzxq1zdssid Kpzen9dpjy05vD13E64wOSveCW NbOPL9BWOzYTEpbYrtxn1euT6w Ii8+YZpds9slh3oiuWw8ZuXa SVFkmyPehPvgYES6g1NyGj61F0 NfcZifz5DzMvc9mr93pQGrz6U2 mTS0QFqpAOKfdH2jSEixKoH9 TDJvZfTbqT34fLOrOUwyVl1nvE mbvKbhWB9xIHZcdbwmLWEwtG9t LRVrdGIszWvuWI0kLYVhfien v271MkNtZNQ9WELlhTElR2OabI 9fRgFqSARrUMHeA0WphFEeBAcx A475TBkqLsB8HNGpgoAvT3Jv NWRzuKbaRkW0j2B7Nw7Bf1Eczu sqHYH5IKqmXPJ8KmOpYhMrUwP0 N1PwDxh7VBKqwZimTJ8dM1Ci MTPyrpcffgpjwSU1GIGgRJZsiI 72tSJxLKewBh0fk4W9s702ROEd RHRkbM82Nm4ygLtaJVKhsQUC sX6tdstwh1qrcvokUyVvQUHkCM t2TXx3PSZgcYgeXoEpZGK5JzS8 TYP2yHZeqK0osUpndtvgdL7q Oyc+F27hmX2gEYN9PRQ7vactAB TvkoAbXO66QA16S6VsDvbmxMWs bGU+LNEgwsMkuBcaMJ7hAyMh b0wae6HtRNjrQ7JnMSIoTVwvXj w7MPDgFDA8fXA5bC1eQRGqTAkk n7T9qCN9X4NsqeRjwg5fg5yq YPMrNVyiR72uqDOtm5X3SWHgcD U6WGSkmOlqPxWugK82Gcg+PGNv hXdrx2OiExgtv6zyh9jwdQo5 IwPzMXQkiwZudGfiHZX8t6OhDa 79O64hPJanIAWoNHWvLJPxFQAs vFfzxm3ayO5zSh1+PGNvbCB3 qZO1yE7nYNLtUaR8RXrcI118Nw FgfVPtFuvvm3kmd8agmHc4EeMi QPUdswRchAhiBRS8o5BhUw72 X27tOZtvZMXwBQNbAPGbQNVlzV ykut9ddO9rXl6+AM8lq0dsul66 nM87tPW+PDHdGPS2dNtwCMrs FLEfhX8vYUhyFzX8HOIkUdUuvZ 06eGCeCTjaRm6sdFsciGedZC8q DVFpubnaz984AeAvt0ivOLTq yMVsCOccCBU1Z06ky7G2DABeIT AiJTT8iVC1lR8jrCylxcbiyXCq hVblyuPpcVpzPFbmYZtrG164 IHRvcDsnPlBhdGllbnQgTmFtZT e8V9QgYcz2NTDgxZygNT7aeLVk OGsgUr2ehPktvJwiNO2xEQFx ilrqd529QoZoh8kqOXKzfZYcUX kwYVN7V97dk4H9TVRdTKZmYGX5 zDY5sN8ncZgajczzhXNubYxu pyDzhEiuDVnaLNcsB254FLAyaE gyVdHqshXoGOCfzAX3SR92FK77 bUWpa0P2eGB3P7AdXOAvvzpl etslgAX0KUVxCFJgnG69Tt5rcX tmOj9fQNOsEHO2WAAhuWTrT5Yg oO1dByKdKYCgATEhA5GdtLLz IWymH433LQbhPcM8ZFAfivEiH9 BiWANraMgnYoH2s4F4Fx4UF2T7 PS02QI10aFEdg6E5pOA6X6Jo RTHwdtuurtbcpHK5EERjGQKlqM 18Yb3orGgiDr3lWPUlEHP6WMTd fBJnO5DhtQ6sPiTrBLCoIZEd A2FbgPDcRThwS212AZveBsF4OC BbltWdA7LoUHKgdDekNoK7q3Q8 Kq3MGGc1AB05AY73cMRgz8A3 iOA7V7IrPUPnstblkucefLX1XD FvPHDlwG83Qs0taHksAo6gEBJx ASJ4MUWouZQdQ8LfsH5lLiDa RNIhOTIrK9LarDVkVWklO290EV otLcB1HOFpttReL0XnHTLogZed GjI3r1M2Hx5BDNQgNE95HTU2 bYY8GS98WT60C1JfPreilPSafG U+PHRhYmxlIHdpZHRoPScxMDAl CtIomCuvDZ2tZj0yLWBtLQCk nVmkgLLoFpTrh4fqQHWsZTltOR 9arWjwX6PijTZ2GLPrq4j5An36 S63dG3NlvPA+KHCksUZ5oDM9 yX9oUcMhLzC6DEzoI685EbRcdA YbXtmye7jbs1soqLm2ArE3DJQo ogZdsYszZAD2e2TpRs51Q34n IHdpZHRoPSIxNSUiIHZhbGlnbj 7eqI0pPa2+ZOLgqDZ7kYN1mH6x RiWjMwP1DQjiW716FaKwgWTt Kfiva3vpt1pdwYs0DhKcKEJlxp IdaNoxFWF8m8MbFz08F8KwpFam g0DuGyp0rv27eMHni6P1nUY5 S6DzITBgmacoeIKnyHtyJV8yOP YtwhptWNPxoP1qKTGrM1a3UtFi WeK0QHjeY4IikzF6OERlqCRb MAqfYQN4C27xa6A9DGBaLUDoFR K9sHS2tS8kyKofchdouBWdmCpt xcWswAqcYOjzFXjuY575NRUs pHfaJQTyqS1nNFIqwANsyRgoIU 4wNTBpbjsnPlNURUlOLCBWSVJH GE3AMJMGGUG8E4JrLkv6LFEp jFobYA0yeVXiURxrGv5zbPvbrA vbJF6jERAgfkemMYNlqA4tRVTt bUVcmSbeOE0oDGImygkdo518 LbWiXMI1OWEdvIEaL3ZkhY0fJq UuUCDjGWZtW9IihVLyRZnzJ667 WFplIuO3VQIwifTbW6KfWSGp fOyxQeJ7g6E5Lo3fSU6zQR8aMF zzFD90AO85oKGdc2V5uLX7J7Ff INIzsqdrpqkjbAN2YZXcGKYf xD99tVTiWJsoFl7gu2L5f433ZK UqVGLjbW78Fu1ntBfdYCHfqCDH fL5kdcjqp4ftduhsBnHwAGXp LIx9LDo3ZYYiuDvtUhVwORT9Zm M3TVG4lEPvoX6blGfqqftvuT8f Oyc+GzqyGWSedoF4E1VkIgx0 MJHtjGffGD6brTJcUPwfOj7oqM pgxNepZZ1mDIFswkeuCISouY6p SMIxkVPmmNdrLH7wMYQzlabu d087JlEhXAE8YRZiqNKeB6DgbL 3jHvPyKTQkQKBvI8QneCAdDMxy I061CLkiKnZ0XIAhfnMvK1Ol RNWabLcaKwF0i0S4Ek1KVX1OZU G6T6PjZkp5QEXbgGqdVQ2bqBQa HMvcLk4rxOpsiYwtZU4bQAZg wjqrDTZbbY9sQHHiuZMvdIfrXV 7gRAJctgyto886OgBwVJV3DBMp pENtA9PbzL8xEjKbWYFxTZVo D1ZzsAEgQTxfT687OIwcHbL7ZW HiyhVpG7UbSLRpwOstFcJ2l4W2 Yu2WWIsbfUV+UU33nm48E4Sv HcpoAgd9CSVcAUY8nYB4cJ8mGX AhYIqii8N9gVR4F8PpggFwlh9i c5joMFKcGIerG13lrNYjc3I3 XJCooLY7BZEjjBhmMkLcfN73Gx c+ZOIzbTknl6YnCqqfr3bcw2df yNd4YtFrFIPvibZwkFnaBRG1 i4QiUi94J51lWGfyGAFcBKZmKE GvWVZltWclmg5byZ2rSo4+PGNv sAW9tWI6zM6uDfOsOkW8DUks J574CgNniSNiXiirk3nsf2bbcA h3UpYrWUJgfqLrnYqgSDL5r4Ss Re44V4JhcDqyq6GyKzr3fr05 zJDcj2Y1tAN4H3IqGJOeuqsrgD CbcRvsVK8lQVBxtybyVLGddW1j RPGiY9n9MwAsFrN0HAliO2Tq knQ0KWDbhKZqOTUcfNVGgO3sbs ijb6ysbzapWcWiJYTyNUc8JCs7 ZGTnbCltBhUuSGZ4WoY7BND4 vRKxxK8tfJtpqqyezZ3lTms+UG e3t3cibEZeHO8cxJY2RO61LN36 mFBoc6Z8oSE6Q0SqGUXvfmvx gtimnAC9CKJiPSVsjH46Oq9qhP qjTq1bGPYhAYG4WAHtoQUxI5Np jX6cLyAwAVKuGBPlZ0AnpJNj HWoyC315EWyfDcY6LAMnieMeM2 YdUJFrfXebNkL4j6A1Um0OLG88 LD77ID56xGVcj2N6kQY5C7Ld GIArowlnhsgicSW4SBOwHZUawA 41Wf5fjSqrZl7wUVIkDPS9DRLa qFUyD1DadM0tMpOlSEFiNWNx H9EnzVLkZXwxU936MWlyEqO8EF WfcqSkD2XxWHShvPebCdQ0y4A5 Ak2VAq64LD13ZJ65pSRxg4R0 gRT5B8NmJBXdufsmzcamzVJ7WK ZbXHUbqV69Pd5cbEevCt5kVZVh ZSD9IXHouTYwF0KyzB6uCmUy VZOkHMIgB3RdcGJwCRjxA311BB isRpU9NJVxkeSeS5ArQPRjzIim AxX4y8I3Cg9YTWfbakf2K7Vs PjwvdHI+SC32OVZwIE43lVLaxS Oya0undEt8GdWiFFXwAXM6wMzb STjff0BuYNFeW06haEXjv2H9 IGN (more content not included)... [facility] Coding Summary HTMLBase 64 HnwmyhdoHTz8bJt+PGhlYWQ+PE 7TMRYxR15wsFNbmC7IZ9xRXG7T CDYVXPOFPY6KRH4kjOH2TKyxE7 VybiAv QbjypCDvSF99VVw7WQD5hSzhAW duzZ6mzITaH4n6TjQuUZ68nB21 YBquHGAgIbH4TbTagsslkXRq S6dnBoPilGVhGks+PHRhYmxlIH ufNMTkMFlgNRUvAhOitRfyNG0n Gn9wJTBpVWEjlFmklNJbFtNb d4hnUKYrPDfrMU5bhWebP3CagZ P7AREcs3z4Jg81uTP+PHRkIHN0 aOpxPUcpl332UtKxl4akJBQ6 gTSkDNdvZVN9D65pr3R1VZMrWK VtFKU6oXK4gG9zrKkddisjT6De pYLcYaS4ZFL4tJLpfM9oeYaq nifkzO4mFyb+D35VYA6WRICUTH 6NVui2E8VyKfbcvXT+NQ13JIAs AC53jITsmBNsz2qfxIc9SyLz LBFjUUI5fNpqAMvgy2UfRAPnR5 9plLHrl0W3GIJilJapaQGwFzRh lQP8mW6fEKptqhpmf4nijatc Fmjzv0egwn23iV50D70aAFaeMT NsOYH4JQGbULDddXpayg0izI9x Ii8+COsnz9tnr0adoDo6NyKo TNYcjpWtrHmcOLR1u1BpPs17R9 BmkNpsm4UoPrp4im36cIVfu4F1 oCM0LCzeYQGdaX9zIRpbDmM8 YDCoMiJjhL04sTDdYVkpHk7slE qkbOrcHG0rUBVxvspzBFSbbD7l AMTzzENuwNmbMH9fEJNbjkqr o205EhGjSGV0LIKhqLWzA4YpjW 2dKaEzPJUfQDHwL3UkxTYyFBpg A877EEwhQfL6TLDysdJcO4Py TTAbmXaqWgB4u5M6Dd4Ua8Bbwq ujRBB5FTsdHOG6ZkWvCaAyKlZ3 W9NgTyy3WDFrkUfjOT7dQ5Cx FTZkwpmtmekqyNG5XHDrBKMycH 32cQPqVEjiDu2kk6C4c312AQTb ZXSffT60Dq7pyLlxVIYkcZKP tD0iaksqw7efisxbFqDpTQPjLZ o7RYf9CNZefSmeInVjRLS3OlK5 IRU2jMJroA6ceUpqwahgqO7n Oyc+R44gyC1jRIK2HTS2xyohCU JhygKzBD48KO41F0IhFoxqwIPs bGU+ZWKinaRxnGnfUJ0bAlXy z1tdb6VeOAypH8WrZVPsZChnOv e6TTJeGQS0oXV1yK6tISFsMNul o1C5rPO0G0GznxMqsw0xa4hw JDWzBBofQ84ykCTav2M2XVBfaB J8BMWijBkoOiLnlY78Soo+PGNv bGsga9QxMqttd9tgp2ycsRt4 KbGqNMPpafYrzOiuNJD8r1HwYl 11C63iJXnsXPUhXUBzAEBqUATe tNgjny0bjS0kHu4+PGNvbCB3 uLA7hJ4kKBJiQhX6PDguO537Ui ZssVOgJezkp3tck9jldWb5KlGh WDXfdvAmaStpRLF3t5AqVs06 K38rMEmfPWLxHLMoQXMpLOCjjK ztfq3vkL9iQw8+FR9kc2gpif09 uX89pOM+KNFrLPB7oIjiHUnz FKSjeT6tUWzyXpU7OZFxQzNqkJ 13eOZlIFaqKb4utWwatSkbFK8a GRGaxhtrg701JvWjc3ajKVRf lAAfVFbtKDK6E11fc9K8IMNqEV JzQZE5aLF0nX6wlYthyvvpzLEx xXdqavZxuHaiJStxPRcyS521 IHRvcDsnPlBhdGllbnQgTmFtZT h2W7ShUvv2VFWxtPiyAQ7peSUr HZafSo0jaDwldFudIZ4eZSNb fzkcz835CpYsd9eeUKJbfCEwZD ecBIB0J07nz0D5UOCaTXYsRAM1 bPT3zB9irHrpwrwugRDsmPhj zySieJzaAIsbDZfvE427UQHyiN mwYpUugqWqWGRusLQ3BK68GA18 yYIjb4L3qKK9I3MkNLFhhnvd zhxygRR2QKIjDCEagQ39Sy3ukE jcGo7pRDMzTEN6LFLlhHSaK2Zo aV2sCdPfQQMfPJFaR4ZlhPHq VUlhB942YDpeDgD0HDFstmGcK7 UdKNLutWonKnR5n0D4Fe0RB1Z6 CV58ER22uWJdx1X2xRK1U5We HEBvmwqxnaddwPU5JBKgKLFexA 89Cn7goLgmHq7vCTMlSQA4JXHr mYHsO8FvbF3cZxZqLBZqHYWw S8NfqKSiTFbvA524DOiuDrK8XJ YaaaMeX5SyXJTtsWyaDqJ7q8I4 Uh1LZWm2ZJ35EE37rYNcj1U1 fIR6P4CjQNRsjfdhzbmybQE9HN PvQBVizS07Zl9csTepTf9aFYUf SEE1VAZipLShV4IwaZ6oTvVr MWCaCJFeC4BnnNUyBUarE656ID npXeE6ZVCmgcWuD9IyADDjeWbl WuL7d1X5Jk2AHWDcZU66RIX0 nGE9SQ67KZ19Q8MsKegnlMOtdM U+PHRhYmxlIHdpZHRoPScxMDAl MmJzfEhnAP3mKx9tBDQkBVRi fLyitUWbFrPgb0ajBPGqOGxcXE 5eiWboC4UtiCS1VQYrh4e8Cl25 F16iS9YzaTH+HYVtiHO9fRH9 vB6lSlXkPhQ9IVkdF282OjZksF OkOfxvv7trl3ltcAj5BaR6XNDb iyAieVovWDW4c4EnJf07A87h IHdpZHRoPSIxNSUiIHZhbGlnbj 7vnX1kEc0+PFAupGN5yPV5oA8q ViKoDmU8GEmzP209NnEheVCm Qnxad6uof8pctQz0CnMwERDovk WigVexYYJ4y6XdWt79U1UikFun r9ByUtw1xa25kHLmo7X7eGS9 X0FvDMWiyjytgUUrrNsjUS6tJJ UmugqzTQLteI1dJDXpP4x1GmIc BsP7HOhoM0QokeT8MJWjkEMa NJlrJDO4X65gn6A7UCUgEUPeGB C5mAZ7pN9zbKzzsyrurGHwsIkk qeNllRtpZIjhZPpvK212OJCv wEjzMRNvjZ9cSHAnbWFroUqiBR 4wNTBpbjsnPlNURUlOLCBWSVJH YY1HTBKUFOW0H3AhZcf1XKFh iZxkHZ7sbNKuYKudZa9cgUbqeB bsFO2cIEGxfaktNYCtjZ4vPWTy iVLawLviCN4gFYYsssigd832 NsGdDUC4LEHjuYIlI8NklZ8eJw QxUILoKWNcA5QmvLLbVLpdT016 ISlqRaT8EYYzyyIbS0DlYWXq aQovIsL9x9K5Xd1cCO6rGI7tPI prXV72VE11hFPkc7A6gGZ4I0Nt SSNkfyedvapbdTX5ULSsUOUh bG20iIYxLStbQq6xo4Z6b986GG VoSNIyaU23Ly4uaCwgFTYzgBZB xX4rtgxpj5bvosmjFmKdCNQk IOb9IGy5JATejOegUxPsWBQ8Xa S8KKV7xJDevL2niWfonkapqQ4n Oyc+IpuoOKScpuP8Z9BiQhg8 TTCjqXfuCY6hiCEdOGkdHi5wiL jhwKukDP0bNSYhradhRZAvyZ5d UJEtaPDjwIsfAN4pMISicevb l215VwTvALU0MTDgbYRqL4EzqN 4lNzCdSRVkNLUeW8TjkZIzMDei C954MNbmZvS8GSHclkVjW6Gm HANwzJtyRbZ5w7P6Cl5DNT0PNL R3I4IgXgo5EXZntGsxKP7yhDJt RWccLn3tnHpkrLxuCG1fDZLu qrglJNEgmC1fWBRlfPDhyQrxBJ 9aQPRaomhjm510OiMcJGT4IZTo bIGsA8GltP5aXjOjWYOdDAFp V6VmvJHoYGniN169PZknDxV1QO RwouHoM9QuLKVysAsdRjT1l1M1 Lq7XcHZpT7AdY6c8X3DuQfrz dHI+WC39IJEnFZ78lMZbeWYau0 uflOq7HvTzZYQtWZV6eVjiHOsz q0IuLFNvR42fnVPsx0B6PQLo lMuapGLnBzYuiJB4aS2lGJoibz ajd3wqrlnxOvbcx6tosw99iS70 K24rDOfzYPPwXFKrZZLcEAMb wOgyfl9cfV7mNn4+FUFnuIZ5qV L9kO7bWeDsNlU5NDddL826CvKf nLKpNcgze9cvy9iogRs0TnLt GCOksuDsiYfaCWS2o1QsRc20A0 9sIHdpZHRoPSIyMCUiIHZhbGln cm8mvE9iXb8+EO0ct8pndj02 fC90vPC+GZPyRXU9aIrvWUjdCQ UhsP2aYNidQqR9TSZvIpRogQ55 yAHjOMjzQi3piKrewUbiXA6v GLCrwneqj160XhWfa0ffNMEsqP YdGLswGQM4Z28hp9K7MOYqTOKd XFE6vER2oB4deIdanvmiwQTi pIamlnJaeIgfHOyoCFsqB340NL TvaNecIiXrsNJoT0jzojOKIQ4e OjwvdGQ+QHYrSEW6wHzcTRsm HONmnV6hOTPkX9c0CmQeZtP7YJ iyL4WeihQ7VTQyaTUdOZBnkCMY dD4txiefm2fhxgwzTfLfRJDm WDl6RQq0WMDelKduRhRnQUO4Ax B9JCF0hEAmhE4urSkzudyslR8v Oyc+RklOOjwvdGQ+PHRkIHN0 eLatTWfrAPXqpM7aMAAwS6w3Zl XqHfE5LJpkS2NoruV3DMIrjPLy CGUeuGDAwR4cbadvd2mvvoei WkJvPFGjUYp4YAc9QVFrxBhvNw IzMJI0ZcA3YSI8bIUasT6wxBou hfnwhL7sDer+TVJOOjwvdGQ+ UVVmREI2kUghCInfJPWyvE7gMQ IoQ2i7EmRzHwJ6NYkjI2QtlqY0 VSPbqFKgUXJixONWfC1ycktu y9mwgyeiKnFiCCGfNQu1JEx7QR FznYjnNcEwCYH8ErY6LQA0eMKa tI9nvRoenobwhY4hXio+UGF5 SZC1MX10SM91M5YaLvcksEFwaR U+PHRhYmxlIHdpZHRoPScxMDAl ChAluUpzTB5hXa1eEZQdYEHr bGx (more content not included)... Normal [facility] CHLAMYDIA/GONOCOCCUS RAINER (SW AB/URINE/PAPon 02-09-2022 Chlamydia trachomatis, RAINER Negative Normal Negative [facility] Comment on above: Performed By: #### R PRQ #### [facility] [address] [address] [address] Juan Antonio Ibarra Neisseria gonorrhoeae, RAINER Negative Normal Negative [facility] Comment on above: Performed By: #### R PRQ #### [facility] [address] [place], [place] [address] Dr. Juan Antonio Ibarra AFP MATERNAL FOR SPINA BIFID Aon 02-08-2022 AFP MoM 1.41 Normal [facility] Comment on above: Performed By: #### A FPMAT #### [facility] [address] [address] [address] Juan Antonio Ibarra AFP Value 66.8 ng/mL Normal [facility] Comment on above: Performed By: #### A FPMAT #### [facility] [address] [address] [address] Juan Antonio Ibarra AFP, Serum for Spina Bifida Report Normal [facility] Comment on above: Performed By: #### A FPMAT #### [facility] [address] [address] [address] Juan Antonio Ibarra Comment Comment Normal [facility] Comment on above: Result Comment: Melchor Chaudhary, Ph.D., [facility] Director . References: Available Upon Request. . Multiples Of Median Cutoffs For AFP Elevations Briscoe 2.5 Black 2.8 IDD 2.0 Twins 4.5 Abbreviation Definitions IDD - Insulin Dep Diabetes OSBR - Open Spina Bifida Risk . For further inquiries contact [employer] at [phone]. . This test was developed and its performance characteristics determined by [facility]. It has not been cleared or approved by the Food and Drug Administration. Performed By: #### A FPMAT #### [facility] [address] [address] [address] Juan Antonio Ren Age Collection Date 18.3 weeks Normal [facility] Comment on above: Performed By: #### A FPMAT #### [facility] [id number] Juan Antonio Ibarra Gestat, Age Based on LMP Normal [facility] Comment on above: Result Comment: Reca lculations are not recommended when gestational dating by LMP and ultrasound are within 10 days. Performed By: #### A FPMAT #### [facility] [address] [place] [address] Dr. Juan Antonio Ibarra Insulin Dep Diabetes No Normal [facility] Comment on above: Performed By: #### A FPMAT #### [facility] [address] [place] [address] Dr. Juan Antonio Ibarra Interpretation Comment Normal [facility] Comment on above: Result Comment: Inte rpretation: [...] Customer Services to discuss available options. The [employer] recommends amniocentesis be offered to women age 35 and older. Performed By: #### A FPMAT #### [facility] [address] [place] [address] Dr. Juan Antonio Ibarra [age] [facility] Comment on above: Performed By: #### A FPMAT #### [facility] [address] [place] [address] Dr. Juan Antonio Ibarra Multiple Gestation No Normal [facility] Comment on above: Performed By: #### A FPMAT #### [facility] [address] [place] [address] Dr. Jaun Antonio Ibarra OSBR Risk 1 IN 3501 [facility] Comment on above: Performed By: #### A FPMAT #### [facility] [address] [place] [address] Dr. Juan Antonio Ibarra PDF . Normal [facility] Comment on above: Performed By: #### A FPMAT #### [facility] [address] [place] [address] Dr. Juan Antonio Ibarra Race Normal [facility] Comment on above: Performed By: #### A FPMAT #### [facility] [address] [address] [address] Juan Antonio Ibarra Test Results: Negative Normal [facility] Comment on above: Performed By: #### A FPMAT #### [facility] [address] [address] [address] Juan Antonio Ibarra VAGINITIS/VAGINOSIS DNA PROB Abdirashid 02-08-2022 Bettye species Negative Normal Negative [facility] Comment on above: Performed By: #### A 1C #### [facility] [address] [address] [address] Juan Antonio Ibarra Gardnerella vaginalis Negative Normal Negative [facility] Comment on above: Performed By: #### A 1C #### [facility] [address] [place] [address] Dr. Juan Antonio Ibarra Trichomonas vaginalis Negative Normal Negative [facility] Comment on above: Performed By: #### A 1C #### [facility] [address] [address] [address] Juan Antonio Ibarra ABO and Rh group post transf usion reaction Nom (Bld)Ordered By: Eleazar Hess on 02-06-2022 Microscopic observation Gram stain Nom (Unsp spec) [facility] ED Clinical Summaryon 2021 ED Clinical Summary [facility] Emergency Department [address] [place], [place] [id number] ED Clinical Summary PERSON INFORMATION Name: ZULEIKA WYATT Age: 31 Years Sex: FEMALE : 1990 MRN: Acct#: Visit Reason: Rash; Medical problem - minor; POSS BODY INFECTION Arrival: 01/29/2022 20:27:46 Discharge: 01/29/2022 21:17:00 LOS: 000 00:50 Check In: 01/29/2022 20:27:46 Checkout:01/29/2022 21:17:00 Address: [address] [place] [address] [address] [place] [address] PCP: Andie Stoddard PROVIDER INFORMATION Provider Role [...] follow-up with their family doctor or their IMPLEMENTATION PROJECT COORDINATOR doctor. To this they agreed.. Health Status [...] Use: Current Fr (more content not included)... [facility] ED Note - Physicianon 2021 ED Note [...] follow-up with their family doctor or their IMPLEMENTATION PROJECT COORDINATOR doctor. To this they agreed.. Health Status [...] Once. Impression and Plan Diagnosis Sebaceous cyst ([id number]-KM L72.3, Discharge, Medical) Plan Condition: Unchanged. Disposition: Discharged: time 01/29/2022 20:59:00. Prescriptions: Launch prescripti (more content not included)... Normal [facility] ED Patient Summaryon 022 ED Patient Summary [facility] - Emergency Department [address] [place] [address] PATIENT DISCHARGE INSTRUCTIONS Patient Information Name: ZULEIKA WYATT Age: 31 Years Date of : 1990 Reason For Visit: Rash; Medical problem - minor; POSS BODY INFECTION Arrival Time: 01/29/2022 20:27:46 Primary Care Physician: Andie Stoddard Attending Physician: Johnson Wright DO Comment: Visit Diagnosis: Diagnoses This Visit Medical problem - minor ([id number]) Rash ([id number]) Sebaceous cyst (L72.3) The Pharmacy at [facility] is open Saturday through Saturday from [...] alcohol and/or drug addiction problems; contact the [facility] Replaced By [facility] 07/01 Crisis Hotline -Text 9YLVW jk [phone]. If you received any narcotics, sedation, or [...] legal documents With: Address: When: Andie Wyatt [address] [place] [address] Business (1) Within 3 to 5 days Comments: home warm compresses clindamycin for antibioitic see your ob, or Dr Wyatt, for recheck apt ----at some point, this might have to be removed; this is not cancer, but a retention cyst of fat material; Return if very red and tender, or fever, vomiting worse You are welcomed to return anytime. Call Dr Wright, ext [phone], if any question patric WRIGHT< ER PHYSICIAN< [facility] Medication Information: The exam and treatment you received today in the [facility] Emergency Department were for an urgent problem and are not intended as complete care. It is important for you to follow up with a doctor, nurse practitioner, or physician?s teaching assistant for ongoing care. If your symptoms become [...] so we can reach you if necessary. [facility] Emergency Department has provided you with a complete list of medications post discharge. Please inform your patternmaker apprentice metal/provider of your visit and for further instruction [...] Epidermoid Cyst (more content not included)... Normal [facility] TYPE AND SCREENon 12-30-2021 TYPE AND SCREEN Antibody Screen [facility] Blood Bank Notes performed by CV on 12/26/2021 ABO Rh Typing A Rh Positive Blood Bank Notes performed by CV on 12/26/2021 Normal [facility] Comment on above: Performed By: #### R UBIGG #### [facility] [address] [place] [address] Dr. Juan Antonio Ibarra HEP B SURFACE ANTIGEN SCREEN on 12-28-2021 HBsAg Screen Negative Normal Negative [facility] Comment on above: Performed By: #### H BSANS #### [facility] [address] [place] [address] Dr. Juan Antonio Ibarra HEPATITIS C VIRUS AB W/ REFL EX QUANTon 12-28-2021 HCV AB 0.2 s/co ratio Normal 0.0-0.9 [facility] Comment on above: Performed By: #### A 1C #### [facility] [address] [place] [address] Dr. Juan nAtonio Ibarra Interpretation: Comment Normal [facility] Comment on above: Result Comment: Nega tive Not infected with HCV, unless recent infection is suspected or other evidence exists to indicate HCV infection. Performed By: #### A 1C #### [facility] [address] [place] [address] Dr. Juan Antonio Ibarra HIV 1 AND 2 WITH REFLEXon HIV Screen 4th Generation wRfx Non-Reactive Normal Non Reactive [facility] Comment on above: Result Comment: HIV Negative HIV-1/HIV-2 antibodies and HIV-1 p24 antigen were NOT detected. There is no laboratory evidence of HIV infection. Performed By: #### R UBIGG #### [facility] [address] [place] [address] Dr. Juan Antonio Ibarra RPR QUANTon 12-28-2021 Rapid Plasma Reagin, Quant Non-Reactive Normal NonRea<1:1 [facility] Comment on above: Result Comment: Plea se Note: This test does not meet current guidelines for screening and diagnosis of syphilis. This test is intended for following treatment response in patients being treated for syphilis infection. To screen for syphilis infection, a reflex cascade that includes both RPR and a treponema-specific assay should be utilized, such as Treponema pallidum (Syphilis) Screening [place] (434864) or Rapid Plasma Reagin (RPR) Test With Reflex to Quantitative RPR and Confirmatory Treponema pallidum Antibodies (597374). Performed By: #### R PRQ #### [facility] [address] [place] [address] Dr. Juan Antonio Ibarra RUBELLA AB IGGon 12-28-2021 Rubella Antibodies, IgG 3.48 index Normal Immune >0.99 [facility] Comment on above: Result Comment: Non- immune <0.90 Equivocal 0.90 - 0.99 Immune >0.99 Performed By: #### R UBIGG #### [facility] [address] [place] [address] Dr. Juan Antonio Ibarra CBC AUTO DIFFon 12-26-2021 BASO # 0.0 103/ul Normal 0.0-0.1 [facility] Comment on above: Performed By: #### A 1C #### [facility] [address] [place] [address] Dr. Juan Antonio Ibarra Basophils/100 WBC (Bld) 0.3 % Normal 0.2-2.0 [facility] Comment on above: Performed By: #### A 1C #### [facility] [address] [place] [address] Dr. Juan Antonio bIarra EO # 0.0 103/ul Normal 0.0-0.7 [facility] Comment on above: Performed By: #### A 1C #### [facility] [address] [place] [address] Dr. Juan Antonio Ibarra Eosinophils/100 WBC (Bld) 0.4 % Critically low 0.9-7.0 [facility] Comment on above: Performed By: #### A 1C #### [facility] [address] [place] [address] Dr. Juan Antonio Ibarra Erythrocyte distribution width (RBC) [Ratio] 13.5 % Normal 11.0-15.0 [facility] Comment on above: Performed By: #### A 1C #### [facility] [address] [place] [address] Dr. Juan Antonio Ibarra Hematocrit (Bld) [Volume fraction] 38.9 % Normal 36.0-48.0 [facility] Comment on above: Performed By: #### A 1C #### [facility] [address] [place] [address] Dr. Juan Antonio Ibarra Hemoglobin (Bld) [Mass/Vol] 12.9 g/dL Normal 12.0-16.0 [facility] Comment on above: Performed By: #### A 1C #### [facility] [address] [place] [address] Dr. Juan Antonio Ibarra IG # 0.03 10e3/ul Normal 0.00-0.03 [facility] Comment on above: Performed By: #### A 1C #### [facility] [address] [place] [address] Dr. Juan Antonio Ibarra IG % 0.3 % Normal 0.0-0.5 [facility] Comment on above: Performed By: #### A 1C #### [facility] [address] [place] [address] Dr. Juan Antonio Ibarra LYMPH # 1.4 103/ul Normal 1.2-3.8 [facility] Comment on above: Performed By: #### A 1C #### [facility] [address] [place] [address] Dr. Juan Antonio Ibarra Lymphocytes/100 WBC (Bld) 14.5 % Critically low 20.5-60.0 [facility] Comment on above: Performed By: #### A 1C #### [facility] [address] [place] [address] Dr. Juan Antonio Ibarra MANUAL DIFF REQ NO Normal [facility] Comment on above: Performed By: #### A 1C #### [facility] [address] [place] [address] Dr. Juan Antonio Ibarra MCH (RBC) [Entitic mass] 29.6 pg Normal 26.7-34.0 [facility] Comment on above: Performed By: #### A 1C #### [facility] [address] [place] [address] Dr. Juan Antonio Ibarra MCHC (RBC) [Mass/Vol] 33.2 g/dL Normal 29.9-35.2 [facility] Comment on above: Performed By: #### A 1C #### [facility] [address] [place] [address] Dr. Juan Antonio Ibarra MCV (RBC) [Entitic vol] 89.2 fL Normal 81.0-99.0 [facility] Comment on above: Performed By: #### A 1C #### [facility] [address] [place] [address] Dr. Juan Antonio Ibarra MONO # 0.5 103/ul Normal 0.3-0.8 [facility] Comment on above: Performed By: #### A 1C #### [facility] [address] [place] [address] Dr. Juan Antonio Ibarra Monocytes/100 WBC (Bld) 4.6 % Normal 1.7-12.0 [facility] Comment on above: Performed By: #### A 1C #### [facility] [address] [place] [address] Dr. Juan Antonio Ibarra NEUT # 7.7 103/ul Critically high 1.4-6.5 [facility] Comment on above: Performed By: #### A 1C #### [facility] [address] [address] [address] Juan Antonio Ibarra Neutrophils/100 WBC (Bld) 79.9 % Critically high 43.0-75.0 [facility] Comment on above: Performed By: #### A 1C #### [facility] [address] [place] [address] Dr. Juan Antonio Ibarra Platelet mean volume (Bld) [Entitic vol] 10.0 fL Normal 9.5-13.5 [facility] Comment on above: Performed By: #### A 1C #### [facility] [address] [place] [address] Dr. Juan Antonio Ibarra PLT 194 103/ul Normal 150-450 [facility] Comment on above: Performed By: #### A 1C #### [facility] [address] [place] [address] Dr. Juan Antonio Ibarra RBC 4.36 106/ul Normal 4.20-5.40 [facility] Comment on above: Performed By: #### A 1C #### [facility] [address] [place] [address] Dr. Juan Antonio Ibarra WBC 9.7 103/ul Normal 4.0-11.0 [facility] Comment on above: Performed By: #### A 1C #### [facility] [address] [place] [address] Dr. Juan Antonio Ibarra CULTURE URINEon 12-26-2021 CULTURE URINE Culture Observations : LIGHT GROWTH OF MIXED GENITAL ALONSO. NO POTENTIAL PATHOGENS SEEN. Normal [facility] Comment on above: Performed By: #### R UBIGG #### [facility] [address] [place] [address] Dr. Juan Antonio Ibarra GLYCOHEMOGLOBIN A1Con 2021 ADA RECOMMENDATION SEE BELOW Normal [facility] Comment on above: Result Comment: ADA RECOMMENDED LIMIT 4.0 - 6.0 ADA THERAPEUTIC TARGET < 7.0 ACTION SUGGESTED > 7.0 Performed By: #### A 1C #### [facility] [address] [place] [address] Dr. Juan Antonio Ibarra Glucose [Mass/Vol] 114 mg/dL Normal [facility] Comment on above: Performed By: #### A 1C #### [facility] [address] [place], [place] [address] Dr. Juan Antonio Ibarra HbA1c (Bld) [Mass fraction] 5.6 % Normal 4.5-6.2 [facility] Comment on above: Performed By: #### A 1C #### [facility] [address] [place], [place] [address] Dr. Juan Antonio Ibarra US PREG TVon [...] FELECIA GOLDMAN Date: 2021-12-07 16:59 Normal [facility] Coding Summaryon 11-21-2021 Coding Summary HTMLBase 64 AyivvhrwDQv6lKb+PGhlYWQ+PE 6OCFYhO48viYJguN5TB3zTVN1S JKGZNUABMF5EQO9aqXY7RHfoF9 VybiAv PvaoiTTqFJ04PFg7KSR9kHqjFS sumS9ikOJxT7v6ZyKtSE66fX15 QKvmXWSzGgP9BtCwjjiqsCPy H5ykDjMczFOgZhm+PHRhYmxlIH xzYRCwKDkcAGGdGiIdkTkpUV8w Wr5uVZCyEITluYzhuHRjFxRd s2czHGTbYEfjPY6wpAozK4HszY C4DBSae5l0Dx74nXO+PHRkIHN0 tYcqYBgjr764DeShe4dsVPM7 uDHsQZwoFIZ5W20pz7Q9OKZuRY NnNSI0mDR7oU1jkMmyfackF0Kz zIEsScR1PXS9cRUgxE1gwLog vzdtvL4jNlp+S40ULE6GUVWCOP 5UBcg7U9TyFzreaKA+DU64VTQn YB58iMVsbPSoy2ohnWl2AnYt OVHkBSP4eFxgKUslq8UfQAPiB8 7fgNBbp3B5JMSoiXucoRZsPjOj rLL8pB9xHUsuknlew1sludyn Ajeiz5xwlv38yN22P34aIIhaZD TrQZP3OTLtVQBkqTsufg4ukS4s Ii8+LOqlz0ldl7hmtZo9JeXe LAAgkoCnkBjfWUU4h4DjTw00J2 TpmPaep3BaMrb8uf95fEOqe8F7 cEN9QWojKEXmeV4nVFlvTxO6 TSFrTvVvpW38gJGaSVnzCa0ugG ptoQazFE0eQOFfueavNWIokG5d HSBbkFMzzPqmFM3tKPOddnwm x154XzOcNQQ1AIXdmEXxI1SguJ 6dMeRrENIhGSTrM6HhmSNzXEar P199IRxqQjD6DHKphpRiK6Qg PDScsUjgGrQ7p7D7Jp0Zi7Uthj piSFF4SIcvTNO6OtK5IqQpXqU3 A7CgEui8HIXsgGbjXG0gC8He BYEwkzrjgzogwXY3VGJeJTKsgX 00tRFoAVjtOw5qt2S7e551XDPz MVNlnW68Xy0mtFrpEEZbcERV iK9ychsli7nxepczApReANBoET y2KJz9MMBywGrkDtOyDGN8CoE5 MGU4fRGwnR0ubZfplpwxgY5o Oyc+S15ocX3mHIX3UBA5igriCA NyctJaIP79KP69W1MpQffjsBSh bGU+RUFrucRnvZjdMC3yNyFi u4ubn7NkHQapL0DdLXWmDVsgYi e0KFYbOWJ3zFT3lQ9mWUBjJFoa w7M9bHN3P2IgvsXsvn2ak8hf YBBfHIwgP83usDVgd5H3KJTvvC Q0UUHmjTksRzPpiH48Ipc+PGNv qYnfb8MsPadjy9zjw9gsyKp5 YeNsVSPymxPvmKzqBUI1w3XdYu 96R56cHSflVUFaTWKqMGRsPNOo nUkspk5xdN2fFb2+PGNvbCB3 bZB0lX0oDHRnIyM5YPuyD958As OjqSVaCbgkk8ovu9gcwXu9OzKw FKIehuCunTtrZSY7j2VtFe69 E42zSBiiUALfCNRyHIYyMAHsgC pvrr7rhV4tDy0+LG6yi8mgzw05 xJ48oCM+LQFzLGY8jCajYIkd LUIkcJ7bYVpiMvK2TCGfNdMsrN 76zPDiTGmvWa7ixVlvcWndZH0d AIGeiunoc863JrNyq7yxQPDk uAZrCYjaTND0N71km9E1IGKzUZ OcGNC7dWA7wD7rvMpmmghqlXPs kKqnmiGybYsbPTvnTFvpB479 IHRvcDsnPlBhdGllbnQgTmFtZT k1T7LoJkt1VQHlhAduLE5dmSRe QGulIq7mnFuyvOaxOG0yYANp jslcj154GtKlp8bjILNrfMVkME fqYXF3D15ba2K0OLEuEWHgEAV9 mTH7lQ8qjQgtmztamQQiyFjf pcLyjQigSIuxYLjtV559HFCszU djZzStqaDxYMQshMW0DC55OE67 oLEdu9A2aGG6L8RwAEMbnzne tysarJF4TCRwZSDjlV34Ov6xpM qwEe3fWNWnBOR9RLAewRUeX1Vl lX1oXpHgCFIyWJFiB9GucUZf JKdcZ370AWkmOzK4BKQtjzUsK2 GkSVHwrOyyPuO2d9Y2Bd3EZ3V6 WO90LM09kOEtu0G9oCC2A7No WBKzlysmlvwplWQ6SWZqFZCxdZ 34Ev5cpZufWi5qLPGiUDS9RXKu xZUwW9UjuK1nBaXbWLOcQWSe W9UehXOxDEvaE608PMlaFiO1GW XkuqPmS8DeNBAmwPoaRcC5m5K1 Gj4THRk1HF23PU07rDDav0C7 mPN8M4LyGUKtzhzckprflDQ3NI QwCKTywK13Uh9syAzjXn0bAUBy OMX4OCDzuEQdQ6HlrI8oRbTy IEZsLJNaL8JfuSEaPLabZ340LS wgDzF4PLPyrpVyD2PjSKBylRes BuD0o1J0Th5KWPDcDI78GHO6 wCJ3SQ25SX47R1SzFxhyrBLnyV U+PHRhYmxlIHdpZHRoPScxMDAl VuNkrPlsNY2cMu1yHPJkBQBm wNzqiSLeHzTji4poXKEiFCwcTH 5ivJiqF0NjxRA4JCYqm3r9Dd85 C39aU8ShqLA+KBWrkBI0eVE2 gP4uWpFfZbR6WHvqB053TfPgeU YiCbaaq0hux6uqqTj6McC0XVBj gxTnmGviWZU6c0NxXx16J53h IHdpZHRoPSIxNSUiIHZhbGlnbj 3tcC2zHc4+SKKgfSY0eUM3fR6g HuDzYlK8YTppW663XhXetUDj Hkiha9fyk5yeyEk5AtZqYPLcxe JxbQypKCU6b1JqMt39R4ThdGsy b7RnXrb8vg71vCKzf7P3fGQ1 J1VyFVSazzdqcAIheWdnNR8fNN GwbthdQYHpeP7uBTYxU4p4YxWd CkO3MHunX9PcgrN6OAFpvHGc ZIshDDW4T98fc8U4XCVnASHqWT U9oLU7pP1xyXfjohnsgUGdiSxy mbWeyKmxCAiwMTckD505PHPt hYjbZJAvmZ8hBMDkdGModStdNW 4wNTBpbjsnPlNURUlOLCBWSVJH WQ3PMJQCDLN7M8ArWof6CPOe sLxjZC8qbFBgAOjdAy9umLucaT yxEH0oWCCwwsfiBAJapJ6dFOJg oSOfzQznJT2mTQVducpju996 IxSqGDJ9EKBmfJGsL0WakT5wXj FzKCDiTMGtC2ZynVRxCVwyO235 BSuzPlD9ACZlxkUjA0XsRMNa dXznRdS5f2B6Tb8sJQ3cWE0nKH jrDB58FY19eVBbi5S4yZY6C1Cn LSXgdvshwwxwnAA0NZXlSXDo cX85oTEaGIxrFc1df7Z8f126XW TiCLIosH14Lv7tlBvrIYAoiHDR gZ1yxxydc2tfttatCyXqMLVa AXa7PEn1XNIwxHhiQtWuGKT4Lx B6NRZ9iCScpG2zwWktrevmvI6z Oyc+WjziRQXfoyA5L9YwLoc2 GHEzfTecLB5bqPPqIUeiDc9fmD zlyKkcSQ7xQTRwzqboXTDsnP6q RQVgoHWhgCpjBJ8hDHMjwwvi s580QtIxSXS2KYKsqYBfX8LclB 9hWgNpGDGfSARjK5ZuqFGoFQux E689OKpqQgF6MSYcwbZgP4Rs LKZtuAhpDrX4k3T8Lk2THY3YZM J6C7BiSam9GWJvwTxiYW7pdHJf YKufQk7qdUuydZcnFX0eABSk dfxeNUQnsP4wNICixRXyeLbsPA 9eFZKtexnwv862YsEzERL8DJCp sIDcT0RetP1qWuTeSVMoCRCs F6HajEMiVCnzZ792WYrbExR5HB XyegRiG4KfTRYetLxtDtO2l4B3 Ie8OKLvwsLZ+XQ81mq85D8Yu LvfkSov2AKYvWOB7hGF4sA4tVO AhNMwbj4D5xNK7E0NldfGvow1r h9kwXTKaCDcgP14cmAZyf0H9 HOXbgJZ8EZXvlFnzJdAegN34Bg c+EIUscPjdc2HzIocoe2xrx3lp hCy1DeNyDSZnzrBahFrgDOL0 p3WkUy56E67pVWooCESmMSBePL GdGJTchRayrw5ziD0xNo3+PGNv iWZ3mHL1hJ8uIlVmXxW7TNkv F845WpJmjZKmSjxhi1wny1ardU v8XtBiDUTyrwEuiLcuJBJ8b8Wk Ea03Y7HwiDtsh0PsEvj6zr30 oBJlz4L0qNL5O0NqJFNgmyqkfE MamTqnDG6gBEDrbecfMDGjjS9q XHNwU2a0VaTvQsI1URqjJ8Bb wuD9UFQtuSGuVGUulTFDiM5gvd zoc2giupexNsFyWJNtZMc0KJr2 WJGpdOedJqQgLQU3EgW3DJH7 qZCuoZ0wbOwopgewtO1xAas+UG t9c7koxGJyFO7dkMW1HV84HR81 sAHdo3Q5jET9Z1StRZSkdpew jzqplYJ6FSLsCAZkpK67Kq5bxA hbAu5rXBHhKJE5NTYjzAIvK3Cv iD7nQsYxEEFiMBYqG6CpbKRu ZFgxM777SAenXcA4BJAbtiPuQ8 GqKUBfoTfyWxF4j2X7Oh4DUP74 UR53QR25cFNeo2C0vLU0P4Mk UJZlmzryuuqblKC3CSNiCCXktY 55Un2ivTlvLt6oLQHsTSQ9FEAe vQAcF4EviQ6mJoPlCLThRDOd S6YjqZQtPVisJ810MNiwZiN6KZ OvcrOtM0RwZKLziBrvZlI4i5R1 Yg3UHf47VB42BS25sMWjf3N5 jAK7N0UkIMLobegunznruJR6GR SiMAEghE14Ov8fbEcuNv8fCAIh MPL3TNNolXJnT2AkjS6qGcRs HBXiOGRfN3SlgXGdLZvyZ960FW qiGlV3ZFWnvmTgA8HjPPRraAtj DpN0g9I3Ru6QIBrhizr9H6Jh PjwvdHI+ED94EKRrKQ59eXDvnD Tjv1kgrGw2VuSjPMDiQLU5cMbf MLavw8DaXBLuN97yrGWrj3Z8 IGN (more content not included)... [facility] Coding Summary HTMLBase 64 IluvvmpwEIs7uXm+PGhlYWQ+PE 1BZGCyW40ngTNkyR6PO5qEMB1V WAXZKZYGDD8HDK9eoWO1BGqgS8 VybiAv ZjidvXDlOM27SUl1TIP3mBhmEV narD5loBFgK9f5QrGhJQ87fK10 TGeoHACwOiI4YhGngppbiUCn O5txXkHzvTWhFsq+PHRhYmxlIH dnXYAcSIpkUVMiZjXniRqjYJ9b Gd0xIUNkZVYluMhkuQZcVvGv o6dsEZXwBLuiCL2efIflO2FopK L1VFCyj2o9Jn79oGD+PHRkIHN0 aFsoLFlaa377JeXyy0mqTVB1 bCSqILleVDU6F77fz0N4PMTeCS BnCLT9gLU6cW1ozQhyeofzQ0Uh xTKkQlH1YVI7dPBnlE2eiMef aafqxB6hTzo+U84MFZ1CGBFUDN 9KXqu1Z6ShFxluvNS+UJ86GVDj QR61eOUqbNQyn6qomOe1LuVg PHObZIB7xIwcWRyrj1WvHPFaD8 2bnKIug9U3UVBcsWdklMStWkRq eOA5eA6gQDlrfihah8yzsmed Zaypk0xmoc17jW71N73qSVnnFD OxUQG6SMLhFRFziMskwc3fiH3n Ii8+XAuul8rcv1phgZp8OjQa HKDqbbBvwDsnRZF9d9MgCy21G7 JnrToba5ZiAwg5rw30gUCji6G9 dKP6UCavPJXyfH2hBNheSfY1 IOIcHtOlcQ72oPZrLLggRu4weM tnxDgtAX6xKJYizumbSTArcA1b QNSifWOrfJnhXV8vDINdkqku h694YoIfQEY1EWWsmEAnR1GwfS 6wCeEpNTXtKOLzV0XusOGsCTyj O803OGnuOlB7YDOmzdNdJ8Mn LCIuvEkhGaA9h1R4Cu3Os1Spdt gfWEL8AFedOCA3UjA1UyDvPbT8 B9KkXrp6QBKnwJfoUD3aV5Yy PCIogjxbmfltiKQ4MKUrTIBgfL 84jHThMEruXk5wv3F9a877IXXo ZHKrqR03Vo7gfBavAKSnmJVB jN5gvorgm1wnqynhEtByWSIgPZ u0VCx4HWTprSeeQsCtSZR5CvJ8 ARW2yYUtvS2aiQnwpaqleL7y Oyc+S96qsC9iGVU8SZU4lsmdQO SdwwRbSP67DB47T9WaDmuqiVAp bGU+COPzukMhsHddJK7kOfDm e1tim8GvMSkhK7XxQNAqWKrfBy x4YICvURX5iTH1tV6qJGNqGTyd p6E8vIO3H0QjqrEnte8bn7iv BXXwVWpqO30tdSXxi5I6FDCmtN V5MUZfgLyaVoKccQ47Arf+PGNv gAjei0VmDaehk1iiy6dnrXc2 PjCwQJDwiuZezVhhOFC1n8TrOp 99S74kWVnuIKJpVZBeBRQyUPSq kZxwhb7gjB4aVt9+PGNvbCB3 qDR2fK6gZFAiGxX8XGbkS393Me DgxREqKiage6cyu0czpMf9EzDn CZKcsvQrdPqlGLH1u0UeRs79 C33bJPpsVDIrMPDhCZScAPTdqA scft7thQ6lPm7+WK6lh9chjx99 cD18wEX+ALGyOMA1hZjvDRdx BTWtnU6qSDceJoD3QLIoFuHusG 73uBFhVNpyJw1oaQkrmJsiOB1d FMSqobser494ZuKdr0faAJXt fVEpWQviPIU3I63dw2Z8WMHwDB GqSPV0sDU5gO5ilSanmmwbfGNg kJabhxInqUrnDWboZGitL751 IHRvcDsnPlBhdGllbnQgTmFtZT i0O9FgBki3MRIarVvrQB0vcXTe PBsoPr3cpUemxQtcML2lVNPx csuus415HoGoh8leSVYszVBqIC fzECF1M51jj3D4OYIdKUSmLLJ3 fXZ9fP3irMjhmgtkfQKjeMki rlTryNfcDLihUOmsF072LQEerH bpPdQifuKvMPQwxEI8RO04UC03 pPRju1Y8uMU2J0ShLWKtowmo yswboZQ7ZKHhNPUsfK50Or4deO lfGe7cYNXvVLT3XUCgxIShF4Vy hV3rBeRpTVRwHWDhP6DvdAHh WTooI261VRhhEfJ3OSUzypTjW3 BxZJLojPpaPbX0f7U3Jb1TQ7J8 OK96ID37eMGlx8Q8cPI9B3Nr YQQlgymrowgnkHF5PXNdURTmfO 33Tf2laHqbXq0tHBNxTFY7OAWu fUAcN6MyoJ0lQuJaDGGrWQDf D0LvrITdYFzvE803ZCexMjP5PS PskuByQ8EkYEByjUaoApA3e1H2 Dr5AOFy6YK81QH30oEXhl1H1 qFW5O9UgWYAwmigcwzkwyFF7SF SbFEFmcX15Sr3mfOucZg7hTZSc NGS2ZCQbjXFgA9DveY0kQpNj PEWtMHXwY7GfnDMeXMvsB257LU prRgL1BYEcurJmV5AvHBUxpJjn QkS0q3J4So1PNSSnLL92JMY5 dYX1CZ16AJ16S6RnXgxauWYlaD U+PHRhYmxlIHdpZHRoPScxMDAl VsBdyUipME0uFs2gJXPpMNKd jUhxuCXlWgMvm4vkWJRdTZweZG 1vlXvnO3LcvFQ1XFTrb6m3Ah36 Y44kY3KfaLQ+FBGckYA7xHQ2 uU7eItHkXxS3OCamJ543LwMgqT UxMofqe3upo6mwbFg7WnF1JACm gyXzuUfvMIE2d3McKl09Z60j IHdpZHRoPSIxNSUiIHZhbGlnbj 9omS4tMy3+XFMmmXX1xOJ0jS6n ZfEzXaM8JGgkE628IvHtgXWw Yyrur8nqb2pwqGu3LdQuXACowt BeqDpnKQL5j9TpUq35B9CxcCvx f8TdWsn2rx78sJGzi7C3pVQ8 I7XjBTDzvzwgeCRkhAspZT9pFF DhowwtFFOoaO9yCZKvO7u3QkSf ZcY6HDfyO7EabrE3MPOwaYJc IAtgNBC7C94lb7D9RDMfQVPkGV V9dQW3vF7ttXkuypgwdVKurHrn jqHhtYjoOHjcQQtbL055IHOf dVgfDNIkdH8eHMOqzWSmxOhwGV 4wNTBpbjsnPlNURUlOLCBWSVJH WA5JTVSXKJB5U0WxRxx8SCVy rWpaBI3ggYNtUPohUj1huYkxhG voZV3eNVBtvvbmJNIkkC0cKGPh dTSkcVniVT0vJQYtgzjlr670 JvSzEDP7FHKhbTGeF0WkjA5fIl AkUUHwVBRmU5YqfQOuRJlyW350 ALefMmI1YONlytNpW6JlJPQa kAryAxJ1y7B3Ot9rLU1aKO0dEM kaBW23NA69fMRxh1G7rPZ2Y9Jn FYQfgmslfqpssIH2APClNMTa xY37gXYhWBfdCh5cg0C8t964TH VnAZYegM49Rf9uuJkwVCMgbCEA xI3sjvepk3pptpztFeRwPPYv XWm5UKp7SZZcdFpuXxRhJAT6Fr Z8FLB5qVVilV1sfYcilxhzbG5l Oyc+WlwgTHSkckW0T0AlCkr3 DWSonZrhRP2ntGFkJGapNe3dkV edvSnpUX0fGFLvbpisEGDbqB6c UHFrpPHlfSxqOH7yLTSvdafs w177TwUqXPH7KDRusTMkZ1VrxK 2gBbCkVHEfEECqG7JytABmCFzj R061YRoeVeL5ZEBmwlTsH5Ps HBSvzOuvJjP1p2F1Ji6VGD1XDC E8A9BdVoj9IRCncSjrCX2ugQCu IRrkPt2qvJxbpZsdKF6qUKWc emdxNPMsrP8vFFOtjDRviNidQV 8wHROndrhyt659SuWcFQG1VMUn sIJaC0OcsS5oFzMlYTGaYPFj H3BzzLCbUDfsS767QEgaGtK4AR KfawMgI4LcQXHmiVqvJpY8f3C4 Ev0FpSOgY9TxW3o6P8HcYgbf dHI+KG33YEEvRB36oLQeaNGdd1 zooXs7ItBdSJPpFAL9pHzuMAxy r1BmJPEdB75deKUxl4X3UMBd nQxycJZwQkMjaTB0bA8iSXrabz tnl1pgdiavZaada8ioel70nS75 J87oDGeqBQQaRZQxSZKwRDQj qFnzzo6npU8wGl6+JQWnzBW4qY L0lK8tHnUpQnV2BQfwL328HbJf uEMiCeujw8edx7apvYl8BpRl DMNturSqqJeyBPT1w7RfLv54L5 9sIHdpZHRoPSIyMCUiIHZhbGln ya0kxN6cUk5+LB5vj8idqa41 nV08fIO+COBiHXA3eNvjELlzRR EnpQ8aLUkbYiR7AANpRtSpjK42 aBIuHMjuEv2taLdtgWkzZW3c JWOfgkcwo879XpYzo3nyEGOkvG FnPIqoDDK3O32lg2P1OWKwPOCg VTA7yZF8lV6anYbqxjawoUXw rKuoyoYzhUrpPYieSXewS485ZT TxcBumFtVbzLBiC5pgtyXHJW9a OjwvdGQ+NLFwCQH2gMxdVBqu BSPqiK6tYDRxL4p9YwDqRjQ1IB fkW9LfbvG8HZDjwRAvZJIesCPA tU7lqaaop6ftnhonSrNgGJXx HKf9XDu7SJIqbNzuNgAnLEL8Ox D9UBY9cDFtpQ3ijRjrdjhpoD4k Oyc+RklOOjwvdGQ+PHRkIHN0 aBgoXIuhHWFsoA8jXCJkB3d9Mw YhBbC3PMqfJ2IyooP8UJApiZZj ASJzwLBGrY4fomoak6froneo GoIcQSAhHJr8YPj2VJGciSepPg PwQCK5OtW6AEH0fVZxuV7qiNfo dagzbR0kUcg+TVJOOjwvdGQ+ UEIyRTU0uHpeCOedGSVkcX6oZZ DgX0n0NvRdOvO6UTfvE7NfrmQ1 MSKxbSHvLRHpxLYNpN5uqxco x3bpcauyIaXqOWKpLIq3LDv6BU TgdDpjTyGbZKB1NrG1LSK8rVRi oI6ijFhtfbbpiW7rEfd+UGF5 IPG4WN92AM02B5EcWstacLUoeN U+PHRhYmxlIHdpZHRoPScxMDAl WsCltRdjDC9gTd5nSRTfUSBh bGx (more content not included)... Normal [facility] ED Clinical Summaryon 2021 ED Clinical Summary [facility] - Emergency Department [address] [place] [address] [id number] ED Clinical Summary PERSON INFORMATION Name: ZULEIKA WYATT NORRIS Age: 31 Years Sex: FEMALE : 1990 MRN: Acct#: Visit Reason: Rib/trunk pain-swelling; ABD PAIN Arrival: 11/13/2021 16:30:24 Discharge: 11/13/2021 18:01:00 LOS: 000 01:31 Check In: 11/13/2021 16:30:24 Checkout:11/13/2021 18:01:00 Address: [address] [place] [address] [address] [place] [address] PCP: Andie Stoddard PROVIDER INFORMATION Provider Role [...] Follow-Up: With: Address: When: [address] [place] [address] Within 1 to 2 days Comments: Diagnosis [...] results be sent to Dr. Ortiz, your IMPLEMENTATION PROJECT COORDINATOR physician. She will contact his office tomorrow [...] Patient/family/caregiver verbalizes understanding of instructions given Comment: [facility] ED Note-Nursingon 11-13-2021 ED Note-Nursing pt arrives [...] 6 with steady gait and no assistance. [facility] ED Patient Summaryon 022 ED Patient Summary [facility] - Emergency Department [address] [place] [id number] PATIENT DISCHARGE INSTRUCTIONS Patient Information Name: ZULEIKA WYATT Age: 31 Years Date of : 1990 Reason For Visit: Rib/trunk pain-swelling; ABD PAIN Arrival Time: 11/13/2021 16:30:24 Primary Care Physician: Andie Stoddard Attending Physician: Gamaliel Wyman MD Comment: Visit Diagnosis: Diagnoses This Visit Elevated blood pressure reading (R03.0) History of abdominal pain (Z87.898) at early stage (Z34.90) Rib/trunk pain-swelling ([id number]) Prescription Information: If you have been given a prescription for narcotics, seek immediate medical attention if you have any difficulty breathing or any sudden status changes such as confusion and sleepiness. If you or anyone you know is experiencing suicidal thoughts, mental health, alcohol and/or drug addiction problems; contact the [facility] Replaced By [facility] 07/01 Crisis Hotline -Text 4HSGJ sc 987041. If you received any narcotics, sedation, or [...] With: Address: When: POLO CUONG [address] [place] [address] Within 1 to 2 days Comments: Diagnosis [...] results be sent to Dr. Ortiz, your IMPLEMENTATION PROJECT COORDINATOR physician. She will contact his office tomorrow [...] and treatment you received today in the [facility] Emergency Department were for an urgent problem and are not intended as complete care. It is important for you to follow up with a doctor, nurse practitioner, or physician?s teaching assistant for ongoing care. If your symptoms become [...] so we can reach you if necessary. [facility] Emergency Department has provided you with a complete list of medications post discharge. Please inform your patternmaker apprentice metal/provider of your visit and for further instruction [...] Temporal: 3 (more content not included)... Normal [facility] hCG Quantitativeon 2 hCG Quantitative 59540.0 mIU/mL High 0.0-0.6 [facility] Comment on above: Order Comment: Lucy whitney call or fax results to Dr. Ortiz's office Result Comment: Resu lt confirmed by dilution Post-Menopausal Reference Range is: 0.1-11.6 mIU/mL Performed By: #### 7 [id number] #### [facility] (DEFAULT) [address] [place] [address] Coding Summary.on 12-19-2018 Coding Summary. CODING DATE: 019 FINAL [facility] STATUS: Left Against Medical Advice PAYOR: Medicaid [...] [place]kin Date Saved: 12/19/2018 10:35 am Normal [facility] ED Clinical Summaryon 2018 ED Clinical Summary (Inserted Image. Elena ble to display) [place] [id number] ED Clinical Summary Person Information Name: ZULEIKA VILLALTA/[facility] Age: 28 Years : 1990 12:00 AM Sex: Female Language: PCP: Marital Status: Phone: [phone] Visit Id: Visit Reason: Test; MENSTRUAL PROBLEMS [...] 12/15/2018 5:58 PM 12/15/2018 5:58 PM ADDRESS: [address] [place] [address] [place] [address] [phone] PHYS DOC NOTES: MEDICAL INFORMATION: Prescriptions Given: PATIENT EDUCATION INFORMATION: Instructions: Follow up: DIAGNOSIS: Normal [facility] ED Patient Education Noteon 12-15-2018 ED Patient Education Note Normal [facility] ED Patient Summaryon 019 ED Patient Summary (Inserted Image. Elena ble to display) [address] [address] Patient Discharge Instructions Person Information Name: ZULEIKA VILLALTA Age: 28 Years Arrival Date: 12/15/2018 4:37 PM Discharge Diagnosis: Primary Care Physician: Provider Information Primary Provider: [employer] Worker:None The exam and treatment you received in the Emergency Department were for an urgent problem and are not intended as complete care. It is important that you follow up with a doctor, nurse practitioner, or physician?s teaching assistant for ongoing care. If your symptoms become [...] opioids can be used to help relieve omkybwjf-zr-biirmz pain and are often prescribed following a [...] be struggling with addiction, tell your health rn urgent care and ask for guidance or call SAMHSA?S National Helpline at 6-511-928-TJMP. v Source: [place] Department of Health and Human Services/Center for Disease Control & Prevention [facility] Medications Given: Medication Dose Route No medications found. Medication Information: Comment: Pharmacy Information: Thank you for choosing [facility] Patient Education Materials: JADEN Jacome [place] , have received the following patient education materials/instructions and have verbalized understanding: Patient Education Materials: Follow-up Instructions: Prescriptions: Patient Signature __ Date Clinician/Nurse Signature Date 12/15/18 17:58:10 Normal [facility] Progress Note-Nurseon 2018 Progress Note-Nurse Patient: [...] to take care of her daughter. Normal [facility] U BetaHcg Qualon 12-15-2018 HCG.beta subunit (U) [Moles/Vol] Negative Normal [facility] Comment on above: Performed By: #### 2 [id number], [id number] #### [facility] [address] [place] [address] UA With Cult Reflexon 2018 Bacteria LM Ql (Urine sed) TRACE Normal Trace [facility] Comment on above: Performed By: #### 2 [id number], [id number] #### [facility] [address] [place] [address] Bilirubin Ql (U) Negative Normal Negative [facility] Comment on above: Performed By: #### 2 [id number], [id number] #### [facility] [address] [place] [address] Clarity (U) CLEAR Normal Clear [facility] Comment on above: Performed By: #### 2 [id number], [id number] #### [facility] [address] [place] [address] Color (U) YELLOW Normal Yellow [facility] Comment on above: Performed By: #### 2 [id number], [id number] #### [facility] [address] [place], [place] [id number] Epithelial cells.squamous LM.HPF (Urine sed) [#/Area] 0-2 Normal 0-2 [facility] Comment on above: Performed By: #### 2 [id number], [id number] #### [facility] [address] [place] [address] Glucose Test strip (U) [Mass/Vol] Negative Normal Negative [facility] Comment on above: Performed By: #### 2 [id number], [id number] #### [facility] [address] [place] [address] Hemoglobin Ql (U) Negative Normal Negative [facility] Comment on above: Performed By: #### 2 [id number], [id number] #### [facility] [address] [place] [address] Ketones (U) [Mass/Vol] Negative Normal Negative [facility] Comment on above: Performed By: #### 2 [id number], [id number] #### [facility] [address] [place] [address] [place].plasma/[place] .RBC (Bld) [Mass ratio] 0-3 Normal 0-3 [facility] Comment on above: Performed By: #### 2 [id number], [id number] #### [facility] [address] [place] [address] Nitrite Ql (U) Negative Normal Negative [facility] Comment on above: Performed By: #### 2 [id number], [id number] #### [facility] [address] [place] [address] pH (U) 6.5 [pH] 5.0-9.0 [facility] Comment on above: Performed By: #### 2 [id number], [id number] #### [facility] [address] [place] [address] Protein (U) [Mass/Vol] Negative Normal Negative [facility] Comment on above: Performed By: #### 2 [id number], [id number] #### [facility] [address] [place] [address] Specific gravity (U) [Rel density] 1.010 1.005-1.030 [facility] Comment on above: Performed By: #### 2 [id number], [id number] #### [facility] [address] [place] [address] UA Spec Desc Clean Catch Normal [facility] Comment on above: Performed By: #### 2 [id number], [id number] #### [facility] [address] [place] [address] Urobilinogen Qn (U) 0.2 {Pamela'U}/dL Normal 0.0-1.0 [facility] Comment on above: Performed By: #### 2 [id number], [id number] #### [facility] [address] [place] [address] WBC Auto Ql (U) Negative Normal Negative [facility] Comment on above: Performed By: #### 2 [id number], [id number] #### [facility] [address] [place] [address] WBC LM.HPF (Urine sed) [#/Area] 0-5 Normal 0-5 [facility] Comment on above: Performed By: #### 2 [id number], [id number] #### [facility] [address] [place] [place] [address] Auto Diffon 12-12-2017 Basophils Auto #/vol (Bld) 0.1 E3/mcL Normal 0.0-0.2 [facility] Comment on above: Order Comment: Order Added by Discern Expert. Performed By: #### 2 [id number] ####KADEN [address] [place] [address] Basophils/100 WBC Auto (Bld) 0.9 % Normal 0.0-2.0 [facility] Comment on above: Order Comment: Order Added by Discern Expert. Performed By: #### 2 [id number] ####KADEN [address] [place] [address] Eos Absolute 0.0 E3/mcL Normal 0.0-0.7 [facility] Comment on above: Order Comment: Order Added by Discern Expert. Performed By: #### 2 [id number] ####KADEN [address] [place] [address] Eosinophils/100 leukocytes 0.4 % Normal 0.0-11.0 [facility] Comment on above: Order Comment: Order Added by Discern Expert. Performed By: #### 2 [id number] ####KADEN [address] [place] [address] Lymphocytes 1.4 E3/mcL Normal 1.2-3.4 [facility] Comment on above: Order Comment: Order Added by Discern Expert. Performed By: #### 2 [id number] ####KADEN [address]xf[address]vlh[address] [place] [address] Lymphocytes/100 leukocytes 16.6 % Low 20.0-55.0 [facility] Comment on above: Order Comment: Order Added by Discern Expert. Performed By: #### 2 [id number] ####KADEN [address] [place] [address] Bertie Absolute 0.5 E3/mcL Normal 0.0-0.7 [facility] Comment on above: Order Comment: Order Added by Discern Expert. Performed By: #### 2 [id number] ####KADEN [address] [place] [address] Monocytes/100 leukocytes 5.5 % Normal 0.0-10.0 [facility] Comment on above: Order Comment: Order Added by Discern Expert. Performed By: #### 2 [id number] ####K[address]EN [address] [place] [address] Neutro Absolute 6.7 E3/mcL High 1.4-6.5 [facility] Comment on above: Order Comment: Order Added by Discern Expert. Performed By: #### 2 [id number] ####[address] [place] [address] Neutro Auto 76.6 % High 37.0-75.0 [facility] Comment on above: Order Comment: Order Added by Discern Expert. Performed By: #### 2 [id number] ####[address] [place] [address] CBC w/ Auto Diffon 8 Erythrocyte distribution width Auto Ratio (RBC) 15.0 % High 11.5-14.5 [facility] Comment on above: Performed By: #### 2 [id number] ####[address] [place] [address] Erythrocytes (RBC) 4.94 E6/mcL Normal 3.90-5.40 [facility] Comment on above: Performed By: #### 2 [id number] ####[address] [place] [address] Hematocrit (HCT) 40.0 % Normal 36.0-48.0 [facility] Comment on above: Performed By: #### 2 [id number] ####K[address] [place] [address] Hemoglobin mass conc (Bld) 13.0 g/dL Normal 12.0-16.0 [facility] Comment on above: Performed By: #### 2 [id number] ####[address] [place] [address] MCH 26.2 pg Low 27.0-31.0 [facility] Comment on above: Performed By: #### 2 [id number] ####[address] [place] [address] MCHC mass conc (RBC) 32.4 g/dL Low 33.0-37.0 [facility] Comment on above: Performed By: #### 2 [id number] ####K[address] [place] [address] MCV 81.0 fL Normal 78.0-100.0 [facility] Comment on above: Performed By: #### 2 [id number] ####K[address] [place] [address] Platelet mean volume (PMV) 7.5 fL Normal 7.4-11.0 [facility] Comment on above: Performed By: #### 2 [id number] ####K[address] [place] [address] Platelets 347 E3/mcL Normal 130-400 [facility] Comment on above: Performed By: #### 2 [id number] ####K[address] [place] [address] WBC (Leukocytes) 8.7 E3/mcL Normal 3.6-11.0 [facility] Comment on above: Performed By: #### 2 [id number] ####K[address] [place] [address] CMPon 12-12-2017 Alanine aminotransferase (ALT) 14 Int._Unit/L Normal 10-40 [facility] Comment on above: Performed By: #### 2 [id number] ####K[address] [place] [address] Albumin 3.8 g/dL Normal 3.2-5.0 [facility] Comment on above: Performed By: #### 2 [id number] ####K[address] [place] [address] Albumin/Globulin Ratio 1.0 {ratio} Low 1.1-1.9 [facility] Comment on above: Performed By: #### 2 [id number] ####K[address] [place] [address] Alk Phos 75 Int._Unit/L Normal 42-121 [facility] Comment on above: Performed By: #### 2 [id number] ####K[address] [place] [address] Aspartate aminotransferase (AST) 18 Int._Unit/L Normal 10-42 [facility] Comment on above: Performed By: #### 2 [id number] ####K[address] [place] [address] Bili Total 1.0 mg/dL Normal 0.2-1.0 [facility] Comment on above: Performed By: #### 2 [id number] ####[address] [place] [address] BUN/Creatinine Ratio 12.5 ratio Normal 5.4-30.0 [facility] Comment on above: Performed By: #### 2 [id number] ####K[address] [place] [address] Creatinine 0.8 mg/dL Normal 0.6-1.3 [facility] Comment on above: Performed By: #### 2 835350 ####KADEN BairdLbsMelt4350 [place] [address] Globulin 3.8 g/dL Normal 2.0-4.0 [facility] Comment on above: Performed By: #### 2 575350 ####KADEN Luceroo[address] [place] [address] Protein 7.6 g/dL Normal 6.4-8.3 [facility] Comment on above: Performed By: #### 2 601057 ####KADEN BairdAaeNhpr8006 [place] [address] Urea nitrogen 10 mg/dL Normal 7-18 [facility] Comment on above: Performed By: #### 2 001902 ####KADEN BairdXdzInrd2064 [place] [address] Calcium 9.3 mg/dL Normal 8.4-10.2 [facility] Comment on above: Performed By: #### 2 918914 ####KADEN BairdEbuLtwg2009 [place] [address] Chloride 105 mmol/L Normal 98-107 [facility] Comment on above: Performed By: #### 2 316109 ####KADEN [address] [place] [address] CO2 25.1 mmol/L Normal 24.0-30.0 [facility] Comment on above: Performed By: #### 2 524121 ####KADEN [address] [place] [address] Glucose mass conc 101 mg/dL High 70-99 [facility] Comment on above: Performed By: #### 2 289417 ####KADEN [address] [place] [id number] Potassium molar conc 3.4 mmol/L Low 3.5-5.1 [facility] Comment on above: Performed By: #### 2 333580 ####KADEN [address] [place] [address] Sodium 140 mmol/L Normal 136-145 [facility] Comment on above: Performed By: #### 2 173865 ####KADEN [address] [place] [address] Lipase Levelon 12-12-2017 Lipase Lvl 30 U/L Normal 8-57 [facility] Comment on above: Performed By: #### 2 194114 ####KADEN [address] [place] [address] UA Completeon 12-12-2017 UA Blood 3+ Normal Negative [facility] Comment on above: Performed By: #### 2 465551 ####KADEN ZjcDptc6140 [place] [address] UA Bacteria Trace Abnormal None [facility] Comment on above: Performed By: #### 2 240154 ####KADEN BairdYavNsda2761 [place] [address] UA Clarity SltCloudy Abnormal Clear [facility] Comment on above: Performed By: #### 2 345853 ####KADEN [address] [place] [address] UA Hyal Cast 0-2 Normal 0-2 [facility] Comment on above: Performed By: #### 2 029132 ####KADEN SiuEwlw9026 [place] [address] UA Leuk Est 3+ Abnormal Negative [facility] Comment on above: Performed By: #### 2 654231 ####KADEN BairdDnzRzfj3844 [place] [address] UA Mucous Many Abnormal Trace [facility] Comment on above: Performed By: #### 2 881077 ####KADEN [address] [place] [address] UA Nitrite Negative Normal Negative [facility] Comment on above: Performed By: #### 2 718344 ####KADEN [address] [place] [address] UA pH 5.0 Normal 4.6-8.0 [facility] Comment on above: Performed By: #### 2 637431 ####KADEN [address] [place] [address] UA Protein 1+ Abnormal Negative [facility] Comment on above: Performed By: #### 2 039765 ####KADEN [address] [place] [address] UA Spec Grav 1.026 Normal 1.003-1.030 [facility] Comment on above: Performed By: #### 2 883444 ####KADEN [address] [place] [address] UA Squam Epithelial 0-5 Normal 0-5 [facility] Comment on above: Performed By: #### 2 728711 ####KADEN VtzTurw[address] [place] [address] UA Urobilinogen 2.0 mg/dL Abnormal [facility] Comment on above: Performed By: #### 2 675788 ####KADEN [address] [place] [address] UA WBC >50 Abnormal 0-5 [facility] Comment on above: Performed By: #### 2 451085 ####KADEN BairdRjoVeju[address] [place] [address] Urine, color Yellow Normal Yellow [facility] Comment on above: Performed By: #### 2 261481 ####KADENMorelia BairdYgvYexn[address] [place] [address] Urine, erythrocytes 20-50 Abnormal 0-3 [facility] Comment on above: Performed By: #### 2 556226 ####KADEN BairdWifUyji[address] [place] [address] Urine, glucose Negative Normal Negative [facility] Comment on above: Performed By: #### 2 636730 ####KADEN [address] [place] [address] Urine, ketones presence Trace Normal [facility] Comment on above: Performed By: #### 2 825831 ####KADEN [address] [place] [address] Urine, urobilinogen Negative Normal Negative [facility] Comment on above: Performed By: #### 2 107134 ####KADEN [address] [place] [address] eGFRon 12-12-2017 eGFR AA >60 Normal [facility] Comment on above: Order Comment: Order Added by Discern Expert. Performed By: #### 2 573370 ####KADEN [address] [place] [address] eGFR (non-black) mL/min/{1.73_m2} Normal [facility] Comment on above: Order Comment: Order Added by Discern Expert. Performed By: #### 2 997116 ####KADEN [address] [place] [address] HISTORY PHYSICALon 8 HISTORY PHYSICAL HNO ID: [id number] thor: Clara Baker WolfeService: Maternal MedicineAuthor Type: PhysicianType: HANDPFiled: 12/02/2017 9:04 AMNote Text:[facility] DOCUMENTDISCHARGE SUMMARYPatient Name: Zuleika Gtz Date: 11/30/2017 [...] with provider.Clara Jama, DO [place] PROGRESSon 12-02-2017 PROGRESS HNO ID: [id number] thor: Marie Lema (Res) LendeService: ObstetricsAuthor Type: [...] with more than 50% of the total yijy-kl-kanxxogp of the visit in counseling / coordination [...] decreasing.Ambulating without difficulty.OBJECTIVE:PHYSI GEN EXAM:Heart: RR, S1, A0Sexqk: clear to auscultationAbdomen: Soft Bowel sounds present [...] 2017 : 5:45 AM Normal [facility] SOCIAL WORKon 12-02-2017 SOCIAL WORK HNO ID: [id number] thor: Meredith Davidson) ManueloService: Social WorkAuthor Type: Social WorkerType: Social WorkFiled: 12/02/2017 12:25 PMNote Text:SOCIAL WORK CONSULT NOTESERVICE DATE: 12/02/2017SERVICE TIME: 1015Referred by: Jose for visit:Maternal/ - adjustment to conditionLiving Arrangement: HomeLives With: PartnerFinancial Resources: DisabledPrimary Contact:Extended Emergency Contact Information DARRELL BRANCH [facility] Emergency Contact: No,ContactRelation: OtherSupportive: YesOther Important Patient [...] from hospital. (FOBparents are Anamika Munoz of [address] [place] [address] , [facility]).Per pt and FOB, all needed baby [facility] and [facility] and a nursery has been set up.Per pt, name of baby girl is Martha Branch.Pt states she is on SSI and WIC.Pt shares that she is in ongoing counseling at [facility] in [place] and has appointments 2 x per month.Discussed with pt and FOB signs and sx of depression; safe babysleep and discussed ways to deal with crying infant. Pt again states sheis going to rely on her support system.No additional issues identified at this time. Encouraged pt and FOB toutilize services through [facility]. Providedcontact information.Outcome/Recomm endations:[facility] (minutes): 60SIGNATURE: CARLA Goncalves PATIENT NAME: Zuleika Hernandez: December 02, 2017 : 11:10 AM PAGER/CONTACT#: [facility] ANES INTRAOPon 12-01-2017 ANES INTRAOP HNO ID: [id number] thor: Terrance Leblanc) Richyervice: AnesthesiologyAuthor Type: Nurse AnesthetistType: Anesthesia IntraOpFiled: 12/01/2017 9:41 AMNote Text:ANALGESIA PROGRESS RECORDCATHETER REMOVAL/END OF CASESERVICE DATE: 12/01/2017REMOVAL DATE AND TIME: 11/30/2017, 3DELIVERY DATE AND TIME: 11/30/2017 at 5:49 PMCATHETER REMOVAL:Catheter Removal: See [facility] Nursing noteSIGNATURE: Terrance Contreras APRN.CRNA PATIENT NAME: Zuleika Hernandez: December 01, 2017 : 9:40 AM PAGER/CONTACT #: [facility] ANES Keke 12-01-2017 ANES POST HNO ID: [id number] thor: Terrance Lockhartervice: AnesthesiologyAuthor Type: Nurse AnesthetistType: [...] by Anesthesia Service: NoneOther Remarks:SIGNATURE: Terrance Contreras APRN.RN STAFFING PATIENT NAME: Zuleika LambATE: December 01, 2017 : 9:42 AM PAGER/CONTACT #: Debo [facility] PROGRESSon 12-01-2017 PROGRESS HNO ID: [id number] thor: Marie Lema (Res) LendeService: ObstetricsAuthor Type: [...] decreasing.Ambulating without difficulty.OBJECTIVE:PHYSI GEN EXAM:Heart: RR, S1, G6Cxkxt: clear to auscultationAbdomen: Soft Bowel sounds present [...] 2017 : 6:40 AM Normal [facility] ABO/Rh Confirmationon 2017 ABO group Nom (Bld) A Normal [facility] Comment on above: Performed By: #### A JESSIE #### [facility] [address] [place] [address] RH Type Positive Normal [facility] Comment on above: Performed By: #### A JESSIE #### [facility] [address] [place] [address] ANES PREOPon 11-30-2017 ANES PREOP HNO ID: [id number] thor: Aaron Leblanc) PoloService: AnesthesiologyAuthor Type: Nurse [...] of Sleep Apnea: DeniesHematocritDate Value Ref Range Aylfkc5011/30/2017 32.3 (L) 34.1 - 44.9 % Final Platelet CountDate Value Ref Range Qnbrse1011/30/2017 193 182 - 369 thou/cmm Final Vitals: 173274 769928 139 143BP: 142/75 138/81Pulse: 75 81Resp:Temp: 36.6 [...] as needed. Disp: Rfl:Inpatient medications reviewed in [facility].I have interviewed and examined the patient. I have reviewed the medicalrecord , pertinent consults and/or the pre-anesthesia evaluation,pertinent labs, and test results.Significant changes in the patient's condition since the History andPhysical, not otherwise documented in primary service progress notes: NoThis contains updated information obtained within 48 hours ofSurgery/Procedure.SIGNAT URE: Hema Cuellar APRN.RN STAFFING PATIENT NAME: Zuleika LambATE: November 30, 2017 : 12:13 PM : 1990 Normal [facility] Auto Diffon 11-30-2017 Basophils Auto #/vol (Bld) 0.1 E3/mcL Normal 0.0-0.2 [facility] Comment on above: Order Comment: Order Added by Discern Expert. Performed By: #### 2 910851 ####KADEN LnsXxzf7424 [place] [address] Basophils/100 WBC Auto (Bld) 0.9 % Normal 0.0-2.0 [facility] Comment on above: Order Comment: Order Added by Discern Expert. Performed By: #### 2 205682 ####KADEN BairdGrqHjwh[address]41 [place] [address] Eos Absolute 0.1 E3/mcL Normal 0.0-0.7 [facility] Comment on above: Order Comment: Order Added by Discern Expert. Performed By: #### 2 520248 ####KADEN [address] [place] [address] Eosinophils/100 leukocytes 1.0 % Normal 0.0-11.0 [facility] Comment on above: Order Comment: Order Added by Discern Expert. Performed By: #### 2 324697 ####KADEN [address] [place] [address] Lymphocytes 2.0 E3/mcL Normal 1.2-3.4 [facility] Comment on above: Order Comment: Order Added by Discern Expert. Performed By: #### 2 034971 ####KADEN [address] [place] [address] Lymphocytes/100 leukocytes 22.1 % Normal 20.0-55.0 [facility] Comment on above: Order Comment: Order Added by Discern Expert. Performed By: #### 2 257007 ####KADEN [address] [place] [address] Bertie Absolute 0.7 E3/mcL Normal 0.0-0.7 [facility] Comment on above: Order Comment: Order Added by Discern Expert. Performed By: #### 2 603372 ####KADEN [address] [place] [address] Monocytes/100 leukocytes 7.5 % Normal 0.0-10.0 [facility] Comment on above: Order Comment: Order Added by Discern Expert. Performed By: #### 2 185376 ####KADEN [address] [place] [address] Neutro Absolute 6.1 E3/mcL Normal 1.4-6.5 [facility] Comment on above: Order Comment: Order Added by Discern Expert. Performed By: #### 2 845815 ####KADEN BairdIsaJhvy2247 [place] [address] Neutro Auto 68.5 % Normal 37.0-75.0 [facility] Comment on above: Order Comment: Order Added by Discern Expert. Performed By: #### 2 378544 ####KADEN [address] [place] [address] CBC w/ Auto Diffon 8 Erythrocyte distribution width Auto Ratio (RBC) 14.3 % Normal 11.5-14.5 [facility] Comment on above: Performed By: #### 2 626884 ####KADEN [address] [place] [address] Erythrocytes (RBC) 4.34 E6/mcL Normal 3.90-5.40 [facility] Comment on above: Performed By: #### 2 663400 ####KADEN L[address] [place] [address] Hematocrit (HCT) 35.1 % Low 36.0-48.0 [facility] Comment on above: Performed By: #### 2 498306 ####KADEN [address] [place] [address] Hemoglobin mass conc (Bld) 11.6 g/dL Low 12.0-16.0 [facility] Comment on above: Performed By: #### 2 898326 ####KADEN [address] [place] [address] MCH 26.6 pg Low 27.0-31.0 [facility] Comment on above: Performed By: #### 2 964874 ####KADEN [address] [place] [address] MCHC mass conc (RBC) 32.9 g/dL Low 33.0-37.0 [facility] Comment on above: Performed By: #### 2 097268 ####KADEN [address] [place] [address] MCV 80.9 fL Normal 78.0-100.0 [facility] Comment on above: Performed By: #### 2 338276 ####KADEN [address] [place] [address] Platelet mean volume (PMV) 7.6 fL Normal 7.4-11.0 [facility] Comment on above: Performed By: #### 2 530786 ####KADEN [address]ugDvuj[address] [place] [address] Platelets 217 E3/mcL Normal 130-400 [facility] Comment on above: Performed By: #### 2 322160 ####KADEN CigBdiz[address]10 [place] [address] WBC (Leukocytes) 8.8 E3/mcL Normal 3.6-11.0 [facility] Comment on above: Performed By: #### 2 053251 ####KADEN IjwAvqp[address] [place] [address] CONSULTon 11-30-2017 CONSULT HNO ID: [id number] thor: Marie Lema (Res) LendeService: ObstetricsAuthor Type: [...] T0 L0 SAB1 TAB0 Ectopic0 Multiple0 Live Twkicq2Lbds of Baby 1: Not recorded Date: 2012 [...] pupils equal, no thyromegalyLungs: clearHeart: RR, S1, S9Vrexovk: soft, nontender, no massesUterus: soft, NTExtremities: 1+ [...] Epi prn4. [place]5. [place] [address]. anomalies- prominent cisterna magna, bilateral periventrcularnodular heterotopia, [...] EF 55%.10. H/o maternal clubfoot-s/p repair as sapczw88. H/o tobacco abuseSigned out to [facility] for deliveryDr. Amado reviewed with Dr. MaldonadoSIGNATURE: Marie Hassan DO PATIENT NAME: Zuleika LambATE: November 30, 2017 : 6:49 AM PAGER/CONTACT #: [phone] Normal [facility] HISTORY PHYSICALon HISTORY PHYSICAL HNO ID: [id number] thor: Marie Lema (Res) JabiereService: ObstetricsAuthor Type: [...] T0 L0 SAB1 TAB0 Ectopic0 Multiple0 Live Ntvsif2Dokm of Baby 1: Not recorded Date: 2014 [...] pupils equal, no thyromegalyLungs: clearHeart: RR, S1, H6Yftrgxn: soft, nontender, no massesUterus: soft, NTExtremities: 1+ [...] Epi prn4. FB [place]5. [place] [address]. anomalies- prominent cisterna magna, bilateral periventrcularnodular heterotopia, [...] EF 55%.10. H/o maternal clubfoot-s/p repair as trdels77. H/o tobacco abuseSigned out to [facility] for deliveryD/w Dr. AmadoSIGNATURE: Marie Hassan DO PATIENT NAME: Zuleika BecerrilAraceliATE: November 30, 2017 : 6:49 AM PAGER/CONTACT #: [phone] Normal [facility] Hemogramon 11-30-2017 Erythrocyte distribution width Ratio (RBC) 13.6 % Normal 11.7-14.4 [facility] Comment on above: Performed By: #### C BC1 #### [place] [address] Hematocrit Volume Fraction (Bld) 32.3 % Low 34.1-44.9 [facility] Comment on above: Performed By: #### C BC1 #### [place] [address] Hemoglobin mass conc (Bld) 10.4 g/dL Low 11.2-15.7 [facility] Comment on above: Performed By: #### C BC1 #### [place] [address] MCH Entitic mass (RBC) 26.4 pg Normal 25.6-32.2 [facility] Comment on above: Performed By: #### C BC1 #### [place] [address] MCHC mass conc (RBC) 32.2 % Normal 31.6-34.8 [facility] Comment on above: Performed By: #### C BC1 #### [facility] [address] [place] [address] MCV Entitic volume (RBC) 82.0 fL Normal 79.4-94.8 [facility] Comment on above: Performed By: #### C BC1 #### [facility] [address] [place] [address] Platelet mean volume Entitic volume (Bld) 9.9 fL Normal 9.4-12.3 [facility] Comment on above: Performed By: #### C BC1 #### [facility] [address] [place] [address] Platelets #/vol (Bld) 193 thou/cmm Normal 182-369 [facility] Comment on above: Performed By: #### C BC1 #### [place] [address] RBC #/vol (Bld) 3.94 mil/cmm Normal 3.93-5.22 [facility] Comment on above: Performed By: #### C BC1 #### [facility] [address] [place] [address] RDW SD 40.6 fl Normal 36.4-46.3 [facility] Comment on above: Performed By: #### C BC1 #### [facility] [address] [place] [address] WBC #/vol (Bld) 9.85 thou/cmm Normal 3.98-10.04 [facility] Comment on above: Performed By: #### C BC1 #### [place] [address] LD NOTEon 11-30-2017 LD NOTE HNO ID: [id number] thor: Marie Lema (Res) LendeService: ObstetricsAuthor Type: ResidentType: LANDD Delivery NoteFiled: 11/30/2017 6:19 PMNote Text: -------Attestation signed by Serenity Maldonado MD at 12/01/2017 6:04 PMI saw and evaluated the patient. I reviewed the resident's note and agree,except that patient seen by [facility] (patient has FAS, fetus with multipleanomlaies) service, consult placed to [facility] for management of labor AND delivery.Liset montez presented at 39w with PROM, had Pugh balloon AND Pitocin foraugmentaion. Late in labor noted tachycardia that improved with IVFB ANDTylenol (mother rico had elevated temp but felt warm). Transported to [facility] so baby could go to awaiting NICU team for evaluation (was allowed tohave delivery to abdomen AND 30 sec delay for cord clamping). Pushed well AND hadSVD of a viable female infant (APGARS 8,9, weight of 3200g/7#1oz) over intactperineum. Uterus slightly boggy after delivery, responded to massage AND Pitocininfusion, EBL ~500cc.Serenity Maldonado MD ----OBSTETRICSDELIVERY SUMMARY - VAGINAL DELIVERYGestational Age at Delivery: 89a0oJqpwego Date: 11/30/2017Service Time: 1799Kebethn, Bg Zuleika Dillard [[id number]]Labor EventsRupture Date: 11/30/17Rupture Time: 224Rupture Type: PROMFluid [...] 2017 : 6:15 PM Normal [facility] NURSING PROGon 11-30-2017 NURSING PROG HNO ID: [id number] thor: Marguerite (Rn) ANEUDY Albarranervice: (none)Author Type: Registered NurseType: Nursing Progress NoteFiled: 11/30/2017 7:06 PMNote Text: INTRODUCED SELF TO PATIENT AND SUPPORT PERSONS. PLAN OF CARE DISCUSSED.ASSESSMENT PERFORMED. PATIENT DENIES COMPLAINTS. Normal [facility] NURSING PROG HNO ID: [id number] thor: Darcie (Rn) ANEUDY Landeroservice: NursingAuthor Type: Registered NurseType: Nursing Progress NoteFiled: 11/30/2017 10:03 AMNote Text:Patient up to shower for comfort. Boyfriend at side. On telemetrymonitors. RN remains in room. FHR difficult to maintain continuoustracing Normal [facility] NURSING PROG HNO ID: [id number] Author: Norah MagañaRn) KARRI Eastman Service: Nursing Author Type: Registered Nurse Type: Nursing Progress Note Filed: 11/30/2017 7:18 AM Note Text: Report given to Darcie DURAN and care transferred at this time. Normal [facility] PROCEDUREon 11-30-2017 PROCEDURE HNO ID: [id number] thor: Aaron (Chiara) PoloService: AnesthesiologyAuthor Type: Nurse [...] Catheter in Epidural Space: 5 cmInterspace: approximately L2-Y8Eulpgl of Attempts: 1Wet Tap Complication: NoDural Puncture [...] nurses' documentation for additional vitals.SIGNATURE: Hema Cuellar APRN.RN STAFFING PATIENT NAME: Zuleika BecerrilnDATE: November 30, 2017 : 12:27 PM PAGER/CONTACT #: Normal [facility] PROGRESSon 11-30-2017 PROGRESS HNO ID: [id number] thor: Marie Lema (Res) LendeService: ObstetricsAuthor Type: ResidentType: Progress NotesFiled: 11/30/2017 5:04 PMNote Text:UpdatePatient is pushing in the OR. Cat I FHRT with baseline around 160s. updated and in house.Franki Neri 2017 5:04 PM [facility] PROGRESS HNO ID: [id number] Author: Darcie MagañaRn) Tigre RN Service: Nursing Author Type: Registered Nurse Type: Progress Notes Filed: 11/30/2017 3:29 PM Note Text: Patient feeling pressure, cervical exam 9.5 cm. NICU notified. Patient feels warm, but temp 36.9. Normal [facility] PROGRESS HNO ID: [id number] thor: Marie Lema (Res) LendeService: ObstetricsAuthor Type: [...] pt comfortable4. s/p FB5. [place] [address]. anomalies- prominent cisterna magna, bilateral periventrcularnodular heterotopia, [...] EF 55%.10. H/o maternal clubfoot-s/p repair as vgzumw98. H/o tobacco abuse12. Cat II- Isolate late decelerations. Moderate variability. Continuingto make cervical change. Not on Cat II protocol.SIGNATURE: Marie Hassan DO PATIENT NAME: Zuleika LambATE: November 30, 2017 : 1:35 PM PAGER/CONTACT #: [phone] Normal [facility] PROGRESS HNO ID: [id number] thor: Yolanda (Joaquín) Suzyervice: ObstetricsAuthor Type: ResidentType: [...] pt comfortable4. s/p FB5. [place] [address]. anomalies- prominent cisterna magna, bilateral periventrcularnodular heterotopia, [...] EF 55%.10. H/o maternal clubfoot-s/p repair as hgxtbi31. H/o tobacco abuseSIGNATURE: Yolanda Barbosa DO PATIENT NAME: Zuleika LambATE: November 30, 2017 : 1:11 PM PAGER/CONTACT #: [phone] Normal [facility] PROGRESS HNO ID: [id number] thor: Yolanda Almonteervice: ObstetricsAuthor Type: ResidentType: Progress [...] Pit per protocol3. [place] [address]. [place] [address]. anomalies- prominent cisterna magna, bilateral periventrcularnodular heterotopia, [...] EF 55%.10. H/o maternal clubfoot-s/p repair as divvxe44. H/o tobacco abuseSIGNATURE: Yolanda Barbosa DO PATIENT NAME: Zuleika LambATE: November 30, 2017 : 11:05 AM PAGER/CONTACT #: [phone] [facility] PROGRESS HNO ID: [id number] Author: Darcie MagañaRn) KARRI Landeros Service: Nursing Author Type: Registered Nurse Type: Progress Notes Filed: 11/30/2017 10:35 AM Note Text: Unable to find labwork for chart. Normal [facility] PROGRESS HNO ID: [id number] thor: Marie Lema (Res) LendeService: ObstetricsAuthor Type: [...] Pit per protocol3. [place] [address]. [place] [address]. anomalies- prominent cisterna magna, bilateral periventrcularnodular heterotopia, [...] EF 55%.10. H/o maternal clubfoot-s/p repair as sbhsad68. H/o tobacco abuse?SIGNATURE: Marie Hassan DO PATIENT NAME: Zuleika LambATE: November 30, 2017 : 10:31 AM PAGER/CONTACT #: [phone] Normal [facility] PROGRESS HNO ID: [id number] thor: Darcie (Rn) ANEUDY Landeroservice: NursingAuthor Type: Registered NurseType: Progress NotesFiled: 11/30/2017 10:13 AMNote Text:Patient remains in shower. RN and boyfriend at side. EFM on telemetryand adjusted while patient in shower. Difficult to keep baby on. Normal [facility] PROGRESS HNO ID: [id number] thor: Yolanda (Res) SnyderService: ObstetricsAuthor Type: ResidentType: Progress NotesFiled: 11/30/2017 7:35 AMNote Text:In to place FB. Pt tolerated procedure well. Continues to leak clearfluid. Pt uncomfortable with contractions.Cat I FHT, reactive with accelsToco: 2-5 minsHeather Romina, PGY-1Obstetrics and GynecologyPager [phone]:34 AM [facility] Type and Screenon 11-30-2017 ABO group Nom (Bld) A Normal [facility] Comment on above: Performed By: #### T &S #### [facility] [address] [place] [address] Comment See Below Normal [facility] Comment on above: Result Comment: Scre en &/or Xmatch expires in 3 days at 12 midnight. Redraw patient at that time. Performed By: #### T &S #### [facility] [address] [address] RH Type Positive Normal [facility] Comment on above: Performed By: #### T &S #### [facility] [address] [address] Progress Noteon 11-28-2017 Bods Developer Authentication Interface Message Text Routine VisitSubjective: Zuleika Villalta is being seen today for her obstetrical visit. She is at [id number]. Patient reports no complaints. Movement: normal. She [...] ultrasounds every 4 weeks.DELIVERY PLANHospital: [facility]Induction at 39 weeks; CYTOTEC IOL 12-02-17 at 5 pm at [facility]. Pre-Procedure formdone (CG)GBS culture: neg 11/07/17Contraception: [...] IVC/SVC S/P echo in [facility] POC reviewedShe would like her follow up and contraception with Dr. Ivan.The total patient time of the visit was 15 minutes, of which greater than 50% ofthe time was spent counseling and coordinating care. Normal [facility] Progress Noteon 11-22-2017 Bods Developer Authentication Interface Message Text [facility] plan of care faxed to [facility] in event pt would arrive for urgent management. Normal [facility] Progress Noteon 11-21-2017 Bods Developer Authentication Interface Message Text Routine VisitSubjective: Zuleika Vlilalta is being seen today for her obstetrical visit. She is at [id number]. Patient reports that she went to [facility] last night due toconcerns for [...] ultrasounds every 4 weeks.DELIVERY PLANHospital: [facility] 39 weeks; CYTOTEC IOL 618-18 at 5 pm at [facility]. Pre-Procedure formdone (CG)GBS culture: neg 11/07/17Contraception: [...] IVC/SVC S/P echo in [facility] POC reviewedFollow up in one week for OB visit and BPP. The patient is scheduled for IOL on12/02/17.Oksana amado MD Normal [facility] Progress Noteon 11-12-2017 Bods Developer Authentication Interface Message Text Call from [facility] that pt presented there in labor. [facility] plan of care and ACOGs faxed by Toan Chen. Provided after hours MFM number provided. Normal [facility] Group B Strep Cultureon 10-16 Group B Strep Culture Group B Strep Cult ure: No Group B Streptococci isolated. Source: VAG Collected: 11/07/17 09:00 Site: Vaginal/Rectal Received : 11/07/17 22:01Group B Strep Culture FINAL 11/10/17 08:34 No Group B Streptococci isolated. Normal [facility] Comment on above: Performed By: #### G [facility] ####[facility] of [address] [phone] Progress Noteon 11-07-2017 Bods Developer Authentication Interface Message Text Routine VisitSubjective: Zuleika Villalta is being seen today for her obstetrical visit. She is at [id number]. Patient reports occasional nausea. No emesis. She [...] ultrasounds every 4 weeks.DELIVERY PLANHospital: [facility]duction at 39 weeksGBS culture: collected and [...] OB visit and BPP.Oksana Amado MD Normal [facility] Progress Noteon 10-24-2017 Bods Developer Authentication Interface Message Text Routine VisitSubjective: Zuleika [...] ultrasounds every 4 weeks.DELIVERY PLANHospital: [facility]Induction at 39 weeksGBS culture:Contraception: Considering LARC [...] and coordinating care.Marco Antonio Antonio, DO Normal [facility] Progress Noteon 10-15-2017 Bods Developer Authentication Interface Message Text Ped selection made. Updated prenatals Normal [facility] Progress Noteon 10-08-2017 Bods Developer Authentication Interface Message Text Thank you for [...] size. There was a patent foramen ovale, ppblkaigt-bs-aflo shunt.Tricuspid valve:Normal tricuspid valve. There was normal [...] fetuses and in fetuses with CHD and wdyhiwvsqbnrr11m48, the ratio being below 0.3 )Impression and recommendations.1) Abnormal 3-vessel view, ascending aorta was moderately dilated. 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 thymic thoracic ratio (TT-ratio)=0.1 ( TT-ratio 0.44 in normal fetuses and in fetuses with CHD and nafdxmsbosnxq05y12, the ratio being below 0.3 )5) Normal [...] earlier ifcardiac condition/status changes in any way. [place] follow up and treatmentshould be determined on the basis of the findings on the initial echocardiogram.Counseling and/or coordination of care was greater than 35 minutes which is morethan 50% of the total time of 60 minutes spent on the encounter. Normal [facility] Bods Developer Authentication Interface Message Text Initial VisitSubjective: Zuleika [...] ultrasounds every 4 weeks.DELIVERY PLANHospital: [facility]Induction at 39 weeksGBS culture:Contraception:TDAP recommended Constipation [...] weeks for OB visit and BPP in [place].Oksana Amado MD Normal [facility] Cytogenomic Microarray Nivia sis of Bloodon 09-10-2017 Cytogenomic Microarray Analysis of Blood SEE BELOW Normal [facility] Comment on above: Result Comment: SPEC IMEN: BLOODCLINICAL INFORMATION: Learning disability[F81.9]TEST: CYTOGENOMIC MICROARRAY ANALYSISRESULT SUMMARY:Normal femaleNOMENCLATURE:arr(1-22,X)[id number] & COMMENTS:The cytogenomics microarray analysis indicated no [...] whole genome microarray analysis was performed the FDA-clearedReverb Networks(R) Dx platform, which contains approximately 2.7million markers, including 1,953,246 unique non-polymorphic copy numberprobes and 743,304 single nucleotide polymorphism (SNP) probes. Thegenome-wide functional resolution of this assay is approximately 25 kbfor deletions and 50 kb for duplications. This microarray andassociated software (Chromosome Analysis Suite Dx) were manufactured [employer] and used by the [facility] for the purpose ofidentifying DNA copy number [...] further information regarding intendeduse and limitations, see [email or web address].Note: The Cytogenetics Laboratory has this patient's blood [...] for additional testing. 09/19/2017 BIGG GARCIA, PH.D., [facility], [facility] 09/19/2017 Performed By: #### M [facility] ####[facility]'[address] [phone] MRI (SINGLE)on 018 MRI (SINGLE) MRI (SINGLE)CL [...] Dr. AJ CAMILO at 09/10/2017 10:21 Normal [facility] Progress Noteon 09-10-2017 Bods Developer Authentication Interface Message Text The total patient time of the visit was 15 minutes, of which greater than 50% of the time was spent counseling and coordinating care. Normal [facility] Auto Diffon 09-03-2017 Basophils Auto #/vol (Bld) 0.1 E3/mcL Normal 0.0-0.2 [facility] Comment on above: Order Comment: Order Added by Discern Expert. Performed By: #### 2 [id number] ####KADEN [address]Afgz[address] [place] [address] Basophils/100 WBC Auto (Bld) 0.5 % Normal 0.0-2.0 [facility] Comment on above: Order Comment: Order Added by Discern Expert. Performed By: #### 2 [id number] ####KADEN BairdMvvXupj[address]4 [place] [address] Eos Absolute 0.0 E3/mcL Normal 0.0-0.7 [facility] Comment on above: Order Comment: Order Added by Discern Expert. Performed By: #### 2 [id number] ####KADEN BairdKhoGqjz[address]127 [place] [address] Eosinophils/100 leukocytes 0.4 % Normal 0.0-11.0 [facility] Comment on above: Order Comment: Order Added by Discern Expert. Performed By: #### 2 [id number] ####KADEN BairdGdhChml[address]151 [place] [address] Lymphocytes 1.3 E3/mcL Normal 1.2-3.4 [facility] Comment on above: Order Comment: Order Added by Discern Expert. Performed By: #### 2 557570 ####KADEN [address] [place] [address] Lymphocytes/100 leukocytes 13.1 % Low 20.0-55.0 [facility] Comment on above: Order Comment: Order Added by Discern Expert. Performed By: #### 2 312183 ####KADEN B[address]JhgPycp1921 [place] [address] Bertie Absolute 0.4 E3/mcL Normal 0.0-0.7 [facility] Comment on above: Order Comment: Order Added by Discern Expert. Performed By: #### 2 [id number] ####KADEN [address] [place] [address] Monocytes/100 leukocytes 4.3 % Normal 0.0-10.0 [facility] Comment on above: Order Comment: Order Added by Discern Expert. Performed By: #### 2 122963 ####KADEN [address]RcfNmyn3615 [place] [address] Neutro Absolute 8.4 E3/mcL High 1.4-6.5 [facility] Comment on above: Order Comment: Order Added by Discern Expert. Performed By: #### 2 048510 ####KADEN B[address]GftItdk5919 [place] [address] Neutro Auto 81.7 % High 37.0-75.0 [facility] Comment on above: Order Comment: Order Added by Discern Expert. Performed By: #### 2 703280 ####KADEN [address] [place] [address] CBC w/ Auto Diffon 8 Erythrocyte distribution width Auto Ratio (RBC) 13.1 % Normal 11.5-14.5 [facility] Comment on above: Performed By: #### 2 137823 ####KADEN Lcueroo[address] [place] [address] Erythrocytes (RBC) 3.90 E6/mcL Normal 3.90-5.40 [facility] Comment on above: Performed By: #### 2 487028 ####KADEN [address]RspAbah[address] [place] [address] Hematocrit (HCT) 34.7 % Low 36.0-48.0 [facility] Comment on above: Performed By: #### 2 976050 ####KADEN B[address]XtbAmqt5654 [place] [address] Hemoglobin mass conc (Bld) 11.8 g/dL Low 12.0-16.0 [facility] Comment on above: Performed By: #### 2 006824 ####KADEN [address]WbaDeoe[address] [place] [address] MCH 30.3 pg Normal 27.0-31.0 [facility] Comment on above: Performed By: #### 2 500732 ####KADEN [address] [place] [address] MCHC mass conc (RBC) 34.2 g/dL Normal 33.0-37.0 [facility] Comment on above: Performed By: #### 2 [id number] ####KADEN BairdUpdEjpc[address]07 [place] [address] MCV 88.8 fL Normal 78.0-100.0 [facility] Comment on above: Performed By: #### 2 251453 ####KADEN BairdWtsMvvu1022 [place] [address] Platelet mean volume (PMV) 7.3 fL Low 7.4-11.0 [facility] Comment on above: Performed By: #### 2 536910 ####KADEN [address]airdRgoYquu8415 [place] [address] Platelets 218 E3/mcL Normal 130-400 [facility] Comment on above: Performed By: #### 2 788082 ####KADEN BairdFfcEziu[address]878 [place] [address] WBC (Leukocytes) 10.2 E3/mcL Normal 3.6-11.0 [facility] Comment on above: Performed By: #### 2 737505 ####KADEN B[address]YyyEcai[address]21 [place] [address] Gest Scr Glu 1 Hron 03-20-20 18 Glucose mass conc 113 mg/dL Normal 70-140 [facility] Comment on above: Performed By: #### 2 011810 ####KADEN IhfPjjm9842 [place] [address] FISH Probeon 08-13-2017 Protein mass conc SEE BELOW Normal [facility] Comment on above: Result Comment: SPEC IMEN: BLOOD - [id number] INFORMATION:TEST: FISH Analysis of the DiGeorge/VCFS Region [...] Metaphase images: 2The Vysis LSI DARREN Spectrum [place] Probe contains the DARREN gene (3'non-coding region of TUPLE1, E76O613, and [id number]. The Vysis LSI ARSAspectrum Green Probe includes [...] performance characteristics determinedby the Cytogenetics Laboratory of [facility]. It hasnot been cleared or approved by [...] FCCMG 08/16/2017 Performed By: #### F MARIA ####[facility] of [address] [phone] Progress Noteon 08-13-2017 Bods Developer Authentication Interface Message Text Met with patient [...] understanding of findingsWork History: unemployed. 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 Pt plans to deliver in [place] with [place]. Currently with Dr. Shekhar Dyson.Director [employer] is undecided. ACHP list provided and discussed [...] was spent counseling and coordinating care. Normal [facility] Bods Developer Authentication Interface Message Text Thank you for [...] size. There was a patent foramen ovale, [id number]-[id number] shunt.Tricuspid valve:Normal tricuspid valve. There was normal [...] 60 minutes spent on the encounter. Normal [facility] Progress Noteon 07-18-2017 Bods Developer Authentication Interface Message Text [facility] MATERNAL- MEDICINE CONSULTReferring/Requestin g Provider: VINI [...] no palpitations. She usually doesnot see a fruit trimmer, but did have a recent echo due [...] Stroke Maternal Grandmother Heart Disease Maternal Grandmother [place] Clotting Disorder Maternal Grandfather Miscarriages / Stillbirths [...] child 07/18/2017 Consider evaluation with social work supervisor to assess for any needs duringpregnancy or after. Will have genetic consult with [facility] evaluation. cardiac anomaly complicating , antepartum 07/18/2017 Dilated aortic root seen on ultrasound along with large umbilical cordvarix, dolichocephaly DW Dr. Zazueta, verbal order to refer to [facility] Will be scheduled with pediatric cardiology. Also, patient and family members have a history of learning disabilities,including an individual learning plan in school. She will talk to her familymembers and bring as much information as is available for her genetics consult.She has transportation to [place] and is willing to be seen there [facility].The total patient time of the visit was 30 minutes, of which was greater than50% of the time was spent counseling and coordinating care. Normal [facility] IGP W/hpv Rfx [id number] 05-07 Diagnosis: See Ref Lab Report Normal [facility] Comment on above: Order Comment: Thin Prep. Performed By: #### 2 [id number] ####KADEN [address] [place] [address] C Urineon 05-03-2017 C Urine Final Report: Normal skin alonso isolated Normal [facility] Comment on above: Performed By: #### 2 [id number] ####KADENMorelia BairdSkwRmgc9102 [place] [address] RPRon 05-03-2017 RPR Ql Non-Reactive Normal Non-Reactiv e [facility] Comment on above: Performed By: #### 2 776100 ####KADENMorelia BairdLiaWcgb4265 [place] [address] Hep Bs Agon 05-02-2017 BSA (Body Surface Area) Negative Normal Negative [facility] Comment on above: Result Comment: Perf ormed At: [facility] [address] [id number] Vincent PhD Ph:[phone] Performed By: #### 2 [id number] ####KADENMorelia BairdYwvEqdx0717 [place] [address] ABO/Rh Echoon 05-01-2017 ABO/Rh E Interp... Positive Normal [facility] Comment on above: Performed By: #### 2 697941 ####KADEN QsiBcgq1599 [place] [address] Antibody Screen Cap...on Screen Interp... Negative Normal [facility] Comment on above: Performed By: #### 2 513365 ####KADENMorelia BairdYjsAahc1833 [place] [address] Auto Diffon 05-01-2017 Basophils Auto #/vol (Bld) 0.0 E3/mcL Normal 0.0-0.2 [facility] Comment on above: Order Comment: Order Added by Discern Expert. Performed By: #### 2 318116 ####KADEN Urinalysis Manual [address]akzzdm0140 [place] [address] Basophils/100 WBC Auto (Bld) 0.4 % Normal 0.0-2.0 [facility] Comment on above: Order Comment: Order Added by Discern Expert. Performed By: #### 2 957698 ####KADEN Urinalysis Manual [address] [place] [address] Eos Absolute 0.1 E3/mcL Normal 0.0-0.7 [facility] Comment on above: Order Comment: Order Added by Discern Expert. Performed By: #### 2 198910 ####KADEN Urinalysis Manual [address] [place] [address] Eosinophils/100 leukocytes 0.7 % Normal 0.0-11.0 [facility] Comment on above: Order Comment: Order Added by Discern Expert. Performed By: #### 2 134814 ####KADEN Urinalysis Manual [address] [place] [address] Lymphocytes 1.8 E3/mcL Normal 1.2-3.4 [facility] Comment on above: Order Comment: Order Added by Discern Expert. Performed By: #### 2 825668 ####KADEN Urinalysis Manual [address] [place] [address] Lymphocytes/100 leukocytes 17.1 % Low 20.0-55.0 [facility] Comment on above: Order Comment: Order Added by Discern Expert. Performed By: #### 2 631932 ####KADEN Urinalysis Manual [address] [place] [address] Bertie Absolute 0.5 E3/mcL Normal 0.0-0.7 [facility] Comment on above: Order Comment: Order Added by Discern Expert. Performed By: #### 2 870888 ####KADEN Urinalysis Manual [address] [place] [address] Monocytes/100 leukocytes 5.0 % Normal 0.0-10.0 [facility] Comment on above: Order Comment: Order Added by Discern Expert. Performed By: #### 2 813395 ####KADEN Urinalysis Manual Esox[address]qx[address] [place], [place] [address]05 Neutro Absolute 8.0 E3/mcL High 1.4-6.5 [facility] Comment on above: Order Comment: Order Added by Discern Expert. Performed By: #### 2 407358 ####KADEN Urinalysis Manual [address]qcwd[address] [place] [address] Neutro Auto 76.8 % High 37.0-75.0 [facility] Comment on above: Order Comment: Order Added by Discern Expert. Performed By: #### 2 726876 ####KADEN Urinalysis Manual Rg[address]ib[address] [place] [address] CBC w/ Auto Diffon 7 Erythrocyte distribution width Auto Ratio (RBC) 15.2 % High 11.5-14.5 [facility] Comment on above: Performed By: #### 2 220188 ####KADEN Urinalysis Manual [address] [place] [address] Erythrocytes (RBC) 4.90 E6/mcL Normal 3.90-5.40 [facility] Comment on above: Performed By: #### 2 345701 ####KADEN Urinalysis Manual [address] [place] [address] Hematocrit (HCT) 41.1 % Normal 36.0-48.0 [facility] Comment on above: Performed By: #### 2 604354 ####KADEN Urinalysis Manual Qwsevmemrr[address] [place] [address] Hemoglobin mass conc (Bld) 13.5 g/dL Normal 12.0-16.0 [facility] Comment on above: Performed By: #### 2 930684 ####KADEN Urinalysis Manual Nazus[address] [place] [address] MCH 27.5 pg Normal 27.0-31.0 [facility] Comment on above: Performed By: #### 2 420580 ####KADEN Urinalysis Manual [address]fu[address]iq[address] [place] [address] MCHC mass conc (RBC) 32.8 g/dL Low 33.0-37.0 [facility] Comment on above: Performed By: #### 2 276353 ####KADEN Urinalysis Manual Epjz[address]cbet[address] [place] [address] MCV 83.9 fL Normal 78.0-100.0 [facility] Comment on above: Performed By: #### 2 520853 ####KADEN Urinalysis Manual Yrecanergc[address] [place] [address] Platelet mean volume (PMV) 8.0 fL Normal 7.4-11.0 [facility] Comment on above: Performed By: #### 2 033476 ####K[place]EN [place] [address] Platelets 246 E3/mcL Normal 130-400 [facility] Comment on above: Performed By: #### 2 589611 ####KADEN Urinalysis Manual [place] [id number] WBC (Leukocytes) 10.4 E3/mcL Normal 3.6-11.0 [facility] Comment on above: Performed By: #### 2 257000 ####[place] [address] Chlamydia GC by PCRon 2016 Chlamydia by PCR. Not Detected Normal Not Detected [facility] Comment on above: Result Comment: Xper t CT/NG Assay performance has not been evaluated in patients less than 14 years of age. Performed By: #### 2 961918 ####KADEN [address]qgBjsy6261 [place] [address] Gonorrhoeae by PCR Not Detected Normal Not Detected [facility] Comment on above: Result Comment: Xper t CT/NG Assay performance has not been evaluated in patients less than 14 years of age. Performed By: #### 2 712595 ####KADEN [address]airdWmrSemm5647 [place] [address] HIV-1/2 Ag/Abon 05-01-2017 HIV-1/2 Ag/Ab Non-Reactive Normal Non-Reactiv e [facility] Comment on above: Performed By: #### 2 760560 ####KADEN Urinalysis Manual [place] [id number] Rubella IgG Lvlon 05-01-2017 Rubella IgG Lvl 50.8 (POS) Normal [facility] Comment on above: Result Comment: <10I U/ml NON REACTIVE: NOT [id number] IU/ml RUBELLA SPECIFIC AB PRESENT, EVALUATEFURTHER TO DETERMINE IMMUNE STATUS >15 IU/ml REACTIVE, IMMUNE Performed By: #### 2 882698 ####KADEN BairdDvyIbdi6752 [place] [address] Auto Diffon 04-22-2017 Basophils Auto #/vol (Bld) 0.1 E3/mcL Normal 0.0-0.2 [facility] Comment on above: Order Comment: Order Added by Discern Expert. Performed By: #### 2 044940 ####KADEN Urinalysis Manual [address] [place] [address] Basophils/100 WBC Auto (Bld) 0.6 % Normal 0.0-2.0 [facility] Comment on above: Order Comment: Order Added by Discern Expert. Performed By: #### 2 508348 ####KADEN Urinalysis Manual [address] [place] [address] Eos Absolute 0.0 E3/mcL Normal 0.0-0.7 [facility] Comment on above: Order Comment: Order Added by Discern Expert. Performed By: #### 2 583145 ####KADEN Urinalysis Manual [address]xy[address] [place] [address] Eosinophils/100 leukocytes 0.2 % Normal 0.0-11.0 [facility] Comment on above: Order Comment: Order Added by Discern Expert. Performed By: #### 2 077054 ####K[place]EN [place] [address] Lymphocytes 1.5 E3/mcL Normal 1.2-3.4 [facility] Comment on above: Order Comment: Order Added by Discern Expert. Performed By: #### 2 122615 ####KADEN Urinalysis Manual [address]xj[address] [place] [address] Lymphocytes/100 leukocytes 10.8 % Low 20.0-55.0 [facility] Comment on above: Order Comment: Order Added by Discern Expert. Performed By: #### 2 509302 ####KADEN Urinalysis Manual [address]ewf[address]cvmd[address] [place] [address] Bertie Absolute 0.6 E3/mcL Normal 0.0-0.7 [facility] Comment on above: Order Comment: Order Added by Discern Expert. Performed By: #### 2 444263 ####KADEN Urinalysis Manual [address]rytlkra[address] [place] [address] Monocytes/100 leukocytes 4.4 % Normal 0.0-10.0 [facility] Comment on above: Order Comment: Order Added by Discern Expert. Performed By: #### 2 415685 ####KADEN Urinalysis Manual [address]xcdq[address] [place] [address] Neutro Absolute 11.3 E3/mcL High 1.4-6.5 [facility] Comment on above: Order Comment: Order Added by Discern Expert. Performed By: #### 2 555872 ####KADEN Urinalysis Manual [address] [place] [address] Neutro Auto 84.0 % High 37.0-75.0 [facility] Comment on above: Order Comment: Order Added by Discern Expert. Performed By: #### 2 487120 ####KADEN Urinalysis Manual Z[address] [place] [address] BMPon 04-22-2017 BUN/Creatinine Ratio Unable to calc Normal 5.4-30.0 [facility] Comment on above: Performed By: #### 2 962873 ####KADEN Urinalysis Manual [address]pzw[address] [place] [address] Creatinine mg/dL Low 0.6-1.3 [facility] Comment on above: Performed By: #### 2 162478 ####KADEN Urinalysis Manual [address]qfcamkp[address] [place] [address] Urea nitrogen 7 mg/dL Normal 7-18 [facility] Comment on above: Performed By: #### 2 225365 ####KADEN Urinalysis Manual [address]qgb[address]grq[address] [place] [address] Calcium 9.6 mg/dL Normal 8.4-10.2 [facility] Comment on above: Performed By: #### 2 791426 ####KADEN Urinalysis Manual Hzxfpfrovc[address] [place] [address] Chloride 103 mmol/L Normal 98-107 [facility] Comment on above: Performed By: #### 2 [id number] ####KADEN Urinalysis Manual [address] [place] [address] CO2 21.7 mmol/L Low 24.0-30.0 [facility] Comment on above: Performed By: #### 2 095646 ####KADEN Urinalysis Manual Wgrsorggjb9550 [place] [address] Glucose mass conc 89 mg/dL Normal 70-99 [facility] Comment on above: Performed By: #### 2 260114 ####KADEN Urinalysis Manual Bpopbyrzcc1416[address] [place] [address] Potassium molar conc 3.6 mmol/L Normal 3.5-5.1 [facility] Comment on above: Performed By: #### 2 811860 ####KADEN Urinalysis Manual Kxgnyjbnlh[address] [place] [address] Sodium 136 mmol/L Normal 136-145 [facility] Comment on above: Performed By: #### 2 487388 ####KADEN Urinalysis Manual Cywfuizmxi0838[address] [place] [address] CBC w/ Auto Diffon 7 Erythrocyte distribution width Auto Ratio (RBC) 14.8 % High 11.5-14.5 [facility] Comment on above: Performed By: #### 2 331284 ####KADEN Urinalysis Manual Uhgpxaekil0380[address] [place] [address] Erythrocytes (RBC) 4.96 E6/mcL Normal 3.90-5.40 [facility] Comment on above: Performed By: #### 2 995696 ####KADEN Urinalysis Manual Ikexrksfhs135[address] [place] [address] Hematocrit (HCT) 40.9 % Normal 36.0-48.0 [facility] Comment on above: Performed By: #### 2 194440 ####KADEN Urinalysis Manual Sosgtglcyy199[address] [place], [place] [address] Hemoglobin mass conc (Bld) 13.5 g/dL Normal 12.0-16.0 [facility] Comment on above: Performed By: #### 2 978972 ####KADEN Urinalysis Manual Rmcaqgxeez7428[address] [place] [address] MCH 27.2 pg Normal 27.0-31.0 [facility] Comment on above: Performed By: #### 2 744361 ####KADEN Urinalysis Manual Dhpwbsjhbg1438 [place] [address] MCHC mass conc (RBC) 33.0 g/dL Normal 33.0-37.0 [facility] Comment on above: Performed By: #### 2 210015 ####KADEN Urinalysis Manual Zzjsjtvrwk4838[address] [place] [address] MCV 82.4 fL Normal 78.0-100.0 [facility] Comment on above: Performed By: #### 2 233323 ####KADEN Urinalysis Manual Uezoxyswmj096[address] [place] [address] Platelet mean volume (PMV) 8.0 fL Normal 7.4-11.0 [facility] Comment on above: Performed By: #### 2 560645 ####KADEN Urinalysis Manual Iodonzxpwq890[address] [place] [address] Platelets 237 E3/mcL Normal 130-400 [facility] Comment on above: Performed By: #### 2 863892 ####KADEN Urinalysis Manual Vncvpcybak5060[address] [place] [address] WBC (Leukocytes) 13.5 E3/mcL High 3.6-11.0 [facility] Comment on above: Performed By: #### 2 884135 ####KADEN Urinalysis Manual Nugllcsrco263[address] [place] [address] UA Completeon 04-22-2017 UA Blood Negative Normal Negative [facility] Comment on above: Performed By: #### 2 721200 ####KADEN Urinalysis Manual Dxrrhfulya8517[address] [place] [address] UA Ascorbic Acid 40 mg/dL High <=19 [facility] Comment on above: Performed By: #### 2 356174 ####KADEN Urinalysis Manual Klfwnxsnup179[address] [place] [address] UA Bacteria 3+ /HPF Abnormal None [facility] Comment on above: Performed By: #### 2 360474 ####KADEN Urinalysis Manual Stltmhikrj4260[address] [place] [address] UA Clarity SltCloudy Abnormal Clear [facility] Comment on above: Performed By: #### 2 676346 ####KADEN Urinalysis Manual Nyvlfjlmrm[address] [place] [address] UA Leuk Est Negative Normal Negative [facility] Comment on above: Performed By: #### 2 783525 ####KADEN Urinalysis Manual Tfctodgayt8523[address] [place] [address] UA Mucous Few Abnormal Trace [facility] Comment on above: Performed By: #### 2 641339 ####KADEN Urinalysis Manual Dvzwhuycbz3087[address] [place] [address] UA Nitrite Negative Normal Negative [facility] Comment on above: Performed By: #### 2 685566 ####KADEN Urinalysis Manual Apegrfakxd475[address] [place] [address] UA pH 8.0 Normal 4.6-8.0 [facility] Comment on above: Performed By: #### 2 440843 ####KADEN Urinalysis Manual Cpjqqhilpo076[address] [place] [address] UA Protein Negative Normal Negative [facility] Comment on above: Performed By: #### 2 836973 ####KADEN Urinalysis Manual Grajwifqxb127[address] [place] [address] UA Spec Grav 1.012 Normal 1.003-1.030 [facility] Comment on above: Performed By: #### 2 602379 ####KADEN Urinalysis Manual Yirlfpwcbd958[address] [place] [address] UA Squam Epithelial 0-5 Normal 0-5 [facility] Comment on above: Performed By: #### 2 552184 ####KADEN Urinalysis Manual Thdqzolvqw[address] [place] [address] UA Urobilinogen Negative Normal [facility] Comment on above: Performed By: #### 2 003497 ####KADEN Urinalysis Manual Wzwdgbkqiw[address] [place] [address] UA WBC 0-5 Normal 0-5 [facility] Comment on above: Performed By: #### 2 745438 ####KADEN Urinalysis Manual Yjucxlcrno4526[address] [place], [place] [address] Urine, color Yellow Normal Yellow [facility] Comment on above: Performed By: #### 2 618996 ####KADEN Urinalysis Manual Hosxiqbtvs8656 [place] [address] Urine, glucose Negative Normal Negative [facility] Comment on above: Performed By: #### 2 042412 ####KADEN Urinalysis Manual Rjqouslyjy1923[address] [place] [address] Urine, ketones presence 1+ Abnormal Negative [facility] Comment on above: Performed By: #### 2 844213 ####KADEN Urinalysis Manual Pajlbvsqth8095[address] [place] [address] Urine, urobilinogen Negative Normal Negative [facility] Comment on above: Performed By: #### 2 799710 ####KADEN Urinalysis Manual Tmnnlzyiuo5935[address] [place] [address] eGFRon 04-22-2017 eGFR AA >60 Normal [facility] Comment on above: Order Comment: Order added by Discern Expert. Performed By: #### 2 121941 ####KADEN Urinalysis Manual Fyjlabguhd717[address] [place] [address] eGFR (non-black) mL/min/{1.73_m2} Normal [facility] Comment on above: Order Comment: Order added by Discern Expert. Performed By: #### 2 188869 ####KADEN Urinalysis Manual Azfvebgzqd8815[address] [place] [address] C Urineon 04-20-2017 C Urine Final Report: Normal skin alonso isolated Normal [facility] Comment on above: Performed By: #### 2 914780 ####KADEN Urinalysis Manual Ukgwmnfxap887[address] [place] [address] BMPon 04-18-2017 BUN/Creatinine Ratio 15.0 ratio Normal 5.4-30.0 [facility] Comment on above: Performed By: #### 2 473701 ####KADEN PjhVprb0767 [place] [address] Creatinine 0.6 mg/dL Normal 0.6-1.3 [facility] Comment on above: Performed By: #### 2 929639 ####KADEN YlhUumm7757 [place] [address] Urea nitrogen 9 mg/dL Normal 7-18 [facility] Comment on above: Performed By: #### 2 424873 ####KADEN GskVxev2255 [place] [address] Calcium 9.6 mg/dL Normal 8.4-10.2 [facility] Comment on above: Performed By: #### 2 492058 ####KADEN LhsDddg5516 [place] [address] Chloride 102 mmol/L Normal 98-107 [facility] Comment on above: Performed By: #### 2 110299 ####KADEN IhvIogb9921 [place] [address] CO2 23.3 mmol/L Low 24.0-30.0 [facility] Comment on above: Performed By: #### 2 292257 ####KADEN YvoKsws3955 [place] [address] Glucose mass conc 93 mg/dL Normal 70-99 [facility] Comment on above: Performed By: #### 2 584854 ####KADEN VapLchr7320 [place] [address] Potassium molar conc 3.5 mmol/L Normal 3.5-5.1 [facility] Comment on above: Performed By: #### 2 070045 ####KADEN IxdPxai3643 [place] [address] Sodium 136 mmol/L Normal 136-145 [facility] Comment on above: Performed By: #### 2 771211 ####KADEN WhfWbxo0223 [place] [address] UA Completeon 04-18-2017 UA Blood Negative Normal Negative [facility] Comment on above: Performed By: #### 2 535866 ####KADEN Urinalysis Manual Mthidszmxq7193 [place] [address] UA Amorph Chastity 2+ /HPF Abnormal None [facility] Comment on above: Performed By: #### 2 768962 ####KADEN Urinalysis Manual Tqrjmagqbj8311 [place] [id number] UA Ascorbic Acid 40 mg/dL High <=19 [facility] Comment on above: Performed By: #### 2 317944 ####KADEN Urinalysis Manual Werlzoaqop0402 [place] [address] UA Clarity Cloudy Abnormal Clear [facility] Comment on above: Performed By: #### 2 495294 ####KADEN Urinalysis Manual Ryyazybbqg2848[address] [place] [address] UA Leuk Est Negative Normal Negative [facility] Comment on above: Performed By: #### 2 107639 ####KADEN Urinalysis Manual Zioimsvota7564[address] [place] [address] UA Mucous Trace Abnormal Trace [facility] Comment on above: Performed By: #### 2 664868 ####KADEN Urinalysis Manual Vgphvykqli4835[address] [place] [address] UA Nitrite Negative Normal Negative [facility] Comment on above: Performed By: #### 2 324172 ####KADEN Urinalysis Manual Kanjfmstee623[address] [place] [address] UA pH 7.0 Normal 4.6-8.0 [facility] Comment on above: Performed By: #### 2 536886 ####KADEN Urinalysis Manual Rirofnfkkb817[address] [place] [address] UA Protein Negative Normal Negative [facility] Comment on above: Performed By: #### 2 370730 ####KADEN Urinalysis Manual Jmfofvrotp858[address] [place] [address] UA Spec Grav 1.018 Normal 1.003-1.030 [facility] Comment on above: Performed By: #### 2 568988 ####KADEN Urinalysis Manual Wkrjcwzrht[address] [place] [address] UA Squam Epithelial 0-5 Normal 0-5 [facility] Comment on above: Performed By: #### 2 496409 ####KADEN Urinalysis Manual Vvjmaxyqfu9599[address] [place] [address] UA Urobilinogen Negative Normal [facility] Comment on above: Performed By: #### 2 125635 ####KADEN Urinalysis Manual Gyilberhms9914[address] [place] [address] Urine, color Yellow Normal Yellow [facility] Comment on above: Performed By: #### 2 595966 ####KADEN Urinalysis Manual Bfqftlgjoz[address] [place] [address] Urine, glucose Negative Normal Negative [facility] Comment on above: Performed By: #### 2 227755 ####KADEN Urinalysis Manual Vfbpnsnumd4467[address] [place] [address] Urine, ketones presence 2+ Abnormal Negative [facility] Comment on above: Performed By: #### 2 658432 ####KADEN Urinalysis Manual Tvvzihpyts[address] [place] [address] Urine, urobilinogen Negative Normal Negative [facility] Comment on above: Performed By: #### 2 894799 ####KADEN Urinalysis Manual Xnofypxhzq1324[address] [place] [address] eGFRon 04-18-2017 eGFR (non-black) mL/min/{1.73_m2} Normal [facility] Comment on above: Order Comment: Order added by Discern Expert. Performed By: #### 1 3994638 ####KADENMorelia BairdKnhZcjh9717 [place] [address] eGFR AA >60 Normal [facility] Comment on above: Order Comment: Order added by Discern Expert. Performed By: #### 1 3829824 ####KADEN QerMfdi8199 [place] [address] Auto Diffon 04-11-2017 Basophils Auto #/vol (Bld) 0.1 E3/mcL Normal 0.0-0.2 [facility] Comment on above: Order Comment: Order Added by Discern Expert. Performed By: #### 2 574837 ####KADENMorelia BairdVdkTast6175 [place] [address] Basophils/100 WBC Auto (Bld) 0.7 % Normal 0.0-2.0 [facility] Comment on above: Order Comment: Order Added by Discern Expert. Performed By: #### 2 588215 ####KADEN XiwIkbk6564 [place] [address] Eos Absolute 0.0 E3/mcL Normal 0.0-0.7 [facility] Comment on above: Order Comment: Order Added by Discern Expert. Performed By: #### 2 636957 ####KADENMorelia BairdTpgQtux3755 [place] [address] Eosinophils/100 leukocytes 0.1 % Normal 0.0-11.0 [facility] Comment on above: Order Comment: Order Added by Discern Expert. Performed By: #### 2 614804 ####KAEDN Luceroo1025 [place] [address] Lymphocytes 1.5 E3/mcL Normal 1.2-3.4 [facility] Comment on above: Order Comment: Order Added by Discern Expert. Performed By: #### 2 497208 ####KADEN Luceroo1025 [place] [address] Lymphocytes/100 leukocytes 17.2 % Low 20.0-55.0 [facility] Comment on above: Order Comment: Order Added by Discern Expert. Performed By: #### 2 575863 ####KADEN BairdVmqHnwz8579 [place] [address] Bertie Absolute 0.6 E3/mcL Normal 0.0-0.7 [facility] Comment on above: Order Comment: Order Added by Discern Expert. Performed By: #### 2 995989 ####KADEN Luceroo1025 [place] [address] Monocytes/100 leukocytes 6.6 % Normal 0.0-10.0 [facility] Comment on above: Order Comment: Order Added by Discern Expert. Performed By: #### 2 185533 ####KADEN BairdXssHjvo6681 [place] [address] Neutro Absolute 6.7 E3/mcL High 1.4-6.5 [facility] Comment on above: Order Comment: Order Added by Discern Expert. Performed By: #### 2 491073 ####KADEN BairdOrhZoey2602 [place] [address] Neutro Auto 75.4 % High 37.0-75.0 [facility] Comment on above: Order Comment: Order Added by Discern Expert. Performed By: #### 2 060955 ####KADEN BairdGtcGutj3338 [place] [address] BMPon 04-11-2017 BUN/Creatinine Ratio 12.9 ratio Normal 5.4-30.0 [facility] Comment on above: Performed By: #### 2 961276 ####KADEN BairdKhvSato6970 [place] [address] Creatinine 0.7 mg/dL Normal 0.6-1.3 [facility] Comment on above: Performed By: #### 2 888030 ####KADEN YowHodt2842 [place] [address] Urea nitrogen 9 mg/dL Normal 7-18 [facility] Comment on above: Performed By: #### 2 873758 ####KADEN GbhZkov8241 [place] [address] Calcium 9.5 mg/dL Normal 8.4-10.2 [facility] Comment on above: Performed By: #### 2 905766 ####KADEN SptQjso9531 [place] [address] Chloride 105 mmol/L Normal 98-107 [facility] Comment on above: Performed By: #### 2 268010 ####KADEN RbrXfje0342 [place] [address] CO2 22.5 mmol/L Low 24.0-30.0 [facility] Comment on above: Performed By: #### 2 164688 ####KADEN BdjGlam4875 [place] [address] Glucose mass conc 92 mg/dL Normal 70-99 [facility] Comment on above: Performed By: #### 2 358916 ####KADEN OhlCufh4563 [place] [address] Potassium molar conc 3.6 mmol/L Normal 3.5-5.1 [facility] Comment on above: Performed By: #### 2 268026 ####KADEN NgcAtsx4725 [place] [address] Sodium 137 mmol/L Normal 136-145 [facility] Comment on above: Performed By: #### 2 966375 ####KADEN JpuJwtv3574 [place] [address] BhCG Quanton 04-11-2017 Beta hCG Qnt 8564.0 mIU/m Normal [facility] Comment on above: Result Comment: FEMA LE (NON-) & MALE <3 BORDERLINE 3 - 5 SUGGEST REPEAT TESTING FEMALE () 1 D - 1 WK 5 - 50 1 - 2 WK 50 - 500 2 - 3 WK 100 - 5000 3 - 4 WK 500 - 25313 4 - 5 WK 1000 - 49911 5 - 6 WK 60142 - 665775 6 - 8 W[place] [address] - 237974 2 - 3 [place] [address] - 629027 Performed By: #### 2 003318 ####KADEN IloHbdn9921 [place] [address] CBC w/ Auto Diffon Erythrocyte distribution width Auto Ratio (RBC) 13.9 % Normal 11.5-14.5 [facility] Comment on above: Performed By: #### 2 837163 ####KADEN QcjSjox7801 [place] [address] Erythrocytes (RBC) 4.63 E6/mcL Normal 3.90-5.40 [facility] Comment on above: Performed By: #### 2 568772 ####KADEN CxcZxwo5232 [place] [address] Hematocrit (HCT) 38.2 % Normal 36.0-48.0 [facility] Comment on above: Performed By: #### 2 774651 ####KADEN QfmEntr0009 [place] [address] Hemoglobin mass conc (Bld) 12.6 g/dL Normal 12.0-16.0 [facility] Comment on above: Performed By: #### 2 060467 ####KADEN HpnCspe5402 [place] [address] MCH 27.2 pg Normal 27.0-31.0 [facility] Comment on above: Performed By: #### 2 000678 ####KADEN BairdUhfTxfr4599 [place] [address] MCHC mass conc (RBC) 33.0 g/dL Normal 33.0-37.0 [facility] Comment on above: Performed By: #### 2 609168 ####KADEN BairdLamUemp0666 [place] [address] MCV 82.6 fL Normal 78.0-100.0 [facility] Comment on above: Performed By: #### 2 362109 ####KADEN EpoNaqi7403 [place] [address] Platelet mean volume (PMV) 8.0 fL Normal 7.4-11.0 [facility] Comment on above: Performed By: #### 2 899601 ####KADEN BairdTbjVufw3445 [place] [address] Platelets 233 E3/mcL Normal 130-400 [facility] Comment on above: Performed By: #### 2 021864 ####KADEN Luceroo1025 [place] [address] WBC (Leukocytes) 9.0 E3/mcL Normal 3.6-11.0 [facility] Comment on above: Performed By: #### 2 003759 ####KADEN UfmGuxv2902 [place] [address] UA Completeon 04-11-2017 UA Blood Negative Normal Negative [facility] Comment on above: Result Comment: High concentration of Ascorbic Acid present in urine. This may cause False Negative Occ Blood. Review microscopic results and patient's clinical symptoms. Performed By: #### 8 5523508 ####KADEN Urinalysis Automated Swygojyrud3989 [place] [address] UA Amorph Chastity 1+ /HPF Abnormal None [facility] Comment on above: Performed By: #### 8 4427328 ####KADEN Urinalysis Automated Tjqqyrdxfp[address] [place] [address] UA Ascorbic Acid 40 mg/dL High <=19 [facility] Comment on above: Performed By: #### 8 6494974 ####KADEN Urinalysis Automated Xvyvzsbpor5861 [place] [address] UA Bacteria Trace Abnormal None [facility] Comment on above: Performed By: #### 8 3301229 ####KADEN Urinalysis Automated Oehjjkazdu5131 [place] [address] UA Clarity Cloudy Abnormal Clear [facility] Comment on above: Performed By: #### 8 7386446 ####KADEN Urinalysis Automated Ihhylgczid6195 [place] [address]67[address] UA Leuk Est Negative Normal Negative [facility] Comment on above: Performed By: #### 8 7112650 ####KADEN Urinalysis Automated Gdkklcpkye7697 [place] [address] UA Mucous Few Abnormal Trace [facility] Comment on above: Performed By: #### 8 8240181 ####KADEN Urinalysis Automated Sjthltjuwg8838 [place] [address] UA Nitrite Negative Normal Negative [facility] Comment on above: Performed By: #### 8 0593803 ####KADEN Urinalysis Automated Lbszbukecu0076 [place] [address] UA pH 7.0 Normal 4.6-8.0 [facility] Comment on above: Performed By: #### 8 9847331 ####KADEN Urinalysis Automated Lbbqyuigvk8379 [place] [address] UA Protein Negative Normal Negative [facility] Comment on above: Performed By: #### 8 1394995 ####KADEN Urinalysis Automated Irdhwqtwgl[address] [place] [address] UA Spec Grav 1.025 Normal 1.003-1.030 [facility] Comment on above: Performed By: #### 8 6402523 ####KADEN Urinalysis Automated Sqmphwsyre12[address] [place] [address] UA Squam Epithelial 5-10 Abnormal 0-5 [facility] Comment on above: Performed By: #### 8 9287094 ####KADEN Urinalysis Automated Jgxlefoxuh27[address] [place] [address] UA Urobilinogen 2.0 mg/dL Abnormal [facility] Comment on above: Performed By: #### 8 6111348 ####KADEN Urinalysis Automated Knqmavucwa4470 [place] [address] Urine, color Yellow Normal Yellow [facility] Comment on above: Performed By: #### 8 8614380 ####KADEN Urinalysis Automated Ndrfogwkif9727 [place] [address] Urine, erythrocytes 0-3 Normal 0-3 [facility] Comment on above: Performed By: #### 8 1964080 ####KADEN Urinalysis Automated Ywpfckcyfn66[address] [place] [address] Urine, glucose Negative Normal Negative [facility] Comment on above: Performed By: #### 8 7781717 ####KADEN Urinalysis Automated Ozhqphcqtp105[address] [place] [address] Urine, ketones presence 2+ Abnormal Negative [facility] Comment on above: Performed By: #### 8 7186311 ####KADEN Urinalysis Automated Fxkwzeqfkv6112 [place] [address] Urine, urobilinogen Negative Normal Negative [facility] Comment on above: Performed By: #### 8 9019100 ####KADEN Urinalysis Automated Idhhyjckdg7682 [place] [address] eGFRon 04-11-2017 eGFR (non-black) mL/min/{1.73_m2} Normal [facility] Comment on above: Order Comment: Order added by Discern Expert. Performed By: #### 1 5142531 ####KADEN NjaHads3418 [place] [address] eGFR AA >60 Normal [facility] Comment on above: Order Comment: Order added by Discern Expert. Performed By: #### 1 9070195 ####KADEN JhfSmhw2610 [place] [address] U BhCG Qlton 03-20-2017 HCG.beta subunit Qn Negative Normal Neg [facility] Comment on above: Performed By: #### 2 223666 ####KADEN Urinalysis Manual Sbhdkfcgwx64[address] [place] [address] UA Completeon 03-20-2017 UA Blood Negative Normal Negative [facility] Comment on above: Performed By: #### 8 1045146 ####KADEN Urinalysis Automated Yhcmaonfco0199 [place] [address] UA Amorph Chastity 1+ /HPF Abnormal None [facility] Comment on above: Performed By: #### 8 1899926 ####KADEN Urinalysis Automated Wiazhnujou2267 [place] [address] UA Bacteria 2+ /HPF Abnormal None [facility] Comment on above: Performed By: #### 8 9499410 ####KADEN Urinalysis Automated Ecsmohqbug5321 [place] [address] UA Clarity Cloudy Abnormal Clear [facility] Comment on above: Performed By: #### 8 6745104 ####KADEN Urinalysis Automated Qmvmgbsdcz4071 [place] [address] UA Leuk Est 1+ Abnormal Negative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
== END 2023-07-18 13:04 | disposition home or self-care (01) ==
LOC: NOMS 13:03
PROVIDERS: Visit Provider Obstetrics & Gynecology
DX: Z36.89 Encounter for other specified antenatal screening (principal)

== ENCOUNTER 2023-07-28 23:03 | Emergency (ER) | payer MEDICAID, SELFPAY ==
--- OUTSIDE RECORDS SUMMARY | 2023-07-28 23:12 | XMS_ITS | CCD ---
Author Name Unknown Address [address] [place] [address] Organization [facility] Care Team Providers Care Stick Roller Name Role Phone CLARA JAMA Unavailable Unavail able SERENITY MALDONADO Unavailable Unavailable OKSANA CARO Unavailable UnaNAGA Bai Unavailable Unavailable BARBOSA, LUKE MALIK Unavailable Unavailable PatrickSalomon terrell R Unavailable Unavailable Patrick, Salomon R Unavailable Unavailable Barbosa, Luke Unavailable Unavailable [place] Park, Christian A Unavailable Unavailable Barbosa, Luke Unavailable Unavailable [place] Park, Chrisitan A Unavailable Unavailable Barbosa, Luke Unavailable Unavailable [place], Christian A Unavailable Unavailable Barbosa, Luke Unavailable Unavailable Shekhar, Christian A Unavailable Unavailable Barbosa, Luke Unavailable Unavailable [place], Christian A Unavailable Unavailable Shekhar, Christian A Unavailable Unavailable Barbosa, Luke Unavailable Unavailable [place], Christian A Unavailable Unavailable Barbosa, Luke Unavailable Unavailable Shekhar, Christian A Unavailable Unavailable Shekhar, Christian A Unavailable Unavailable Barbosa, Luke Unavailable Unavailable Brabosa, Luke Unavailable Unavailable Woo, Emiliano Unavailable Unavailable Woo, Emiliano Unavailable Unavailable Patrick, Salomon R Unavailable Unavailable Barbosa, Luke Unavailable Unavailable Barbosa, Luke Unavailable Unavailable [place], Jag W Unavailable Unavailable [place], Jag W Unavailable Unavailable [place] Park, Christian A Unavailable Unavailable Barbosa, Luke Unavailable Unavailable [place], Christian A Unavailable Unavailable Barbosa, Luke Unavailable Unavailable No Doctor Assigned, Nodr Unavailable Unavail able Ivanauskas, Saulius Unavailable Unavailable Ivanauskas, Saulius Unavailable Unavailable Gamaliel Savage Unavailable Unavailable Gamaliel Savage Unavailable Unavailable Barbosa, Luke Unavailable Unavailable Cristina, Yasmin D Unavailable Unavailable Barbosa, Luke Unavailable Unavailable No Doctor Assigned, Nodr Unavailable Unavail able Woo, Emiliano Unavailable Unavailable Woo, Emiliano Unavailable Unavailable No Doctor Assigned, Nodr Unavailable Unavail able Oscar, Jag W Unavailable Unavailable Oscar, Jag W Unavailable Unavailable Barbosa, Luke Unavailable Unavailable No Doctor Assigned, Nodr Unavailable Unavail able Gamaliel Savage M Unavailable Unavailable Barbosa, Luke Unavailable Unavailable Hannah, Aaron A Unavailable Unavailable Hannah, Aaron A Unavailable Unavailable Patrick, Salomon R Unavailable Unavailable Patrick, Salomon R Unavailable Unavailable Barbosa, Luke Unavailable Unavailable Frank, Juanita Unavailable Unavailable Frank, Juanita Unavailable Unavailable Barbosa, Luke Unavailable Unavailable [place], Christian A Unavailable Unavailable [place], Christian A Unavailable Unavailable Barbosa, Luke Unavailable Unavailable Shekhar, Christian A Unavailable Unavailable Barbosa, Luke Unavailable Unavailable Barbosa, Luke Unavailable Unavailable [place]nee, Jag W Unavailable Unavailable [place], Jag W Unavailable Unavailable [place], Christian A Unavailable Unavailable Barbosa, Luke Unavailable Unavailable Gamaliel Savage M Unavailable Unavailable SavageGamaliel bolden M Unavailable Unavailable Barbosa, Luke Unavailable Unavailable [place], Christian A Unavailable Unavailable Barbosa, Luke Unavailable [...] T Unavailable Unavailable PROVIDER, EXTERNAL Unavailable Unavailable OKSANA CARO Unavailable Unavai lable LAI, KRIS T Unavailable [...] Emergency Provider SADAF Wyatt Primary Care Provider Meagan [facility] Elle Whitney Emergency Provider DR CUONG PAGAN Consulting Unavailable [facility] Primary Care Unavailable DIANA ., DR ACOSTA Attending Unavailable DIANA ., DR ACOSTA Admitting Unavailable DIANA ., DR ACOSTA Admitting Unavailable DIANA ., DR ACOSTA Attending Unavailable [facility] Primary Care Unavailable DIANA ., DR ACOSTA Consulting Unavailable SUSI, DR FELECIA Chadwick Consulting Unavailable [facility] Primary Care Unavailable KARASIK ., DR CAMACHO Admitting Unavailabl e KARASIK ., DR CAMACHO Attending Unavailabl e KARASIK ., DR CAMACHO Consulting Unavailabl e WEST, DR GAMALIEL Fischer Consulting Unavailable DIANA ., DR ACOSTA Consulting Unavailable ZIEBER, DR FELECIA Chadwick Consulting Unavailable WILLIAMS ., BARB Admitting Unavailable WILLAIMS ., BARB Attending Unavailable [facility] Primary Care Unavailable WILLIAMS ., BARB Consulting Unavailable DIANA ., DR ACOSTA Admitting Unavailable DIANA ., DR ACOSTA Attending Unavailable [facility] Primary Care Unavailable DIANA ., DR ACOSTA Consulting Unavailable [facility] Primary Care Unavailable KARASIK ., DR CAMACHO Admitting Unavailabl e KARASIK ., DR CAMACHO Attending Unavailabl e KARASIK ., DR CAMACHO Consulting Unavailabl e DIANA ., DR ACOSTA Admitting Unavailable DIANA ., DR ACOSTA Attending Unavailable [facility] Primary Care Unavailable DIANA ., DR ACOSTA Consulting Unavailable ZIEBER, DR FELECIA Chadwick Consulting Unavailable DIANA ., DR ACOSTA Admitting Unavailable DIANA ., DR ACOSTA Attending Unavailable [facility] Primary Care Unavailable DIANA ., DR ACOSTA Consulting Unavailable ZIEBER, DR FELECIA Chadwick Consulting Unavailable PRATIMA, BRODIE Consulting Unavailable DIANA ., DR ACOSTA Consulting Unavailable [facility] Primary Care Unavailable DIANA ., DR ACOSTA Attending Unavailable DIANA ., DR ACOSTA Admitting Unavailable ZIEBER, DR FELECIA Chadwick Consulting Unavailable DIANA ., DR ACOSTA Consulting Unavailable [facility] Primary Care Unavailable DIANA ., DR ACOSTA Attending Unavailable DIANA ., DR ACOSTA Admitting Unavailable DIANA ., DR ACOSTA Admitting Unavailable DIANA ., DR ACOSTA Attending Unavailable [facility] Primary Care Unavailable DIANA ., DR ACOSTA Consulting Unavailable ZIEBER, DR FELECIA Chadwick Consulting Unavailable DIANA ., DR ACOSTA Admitting Unavailable DIANA ., DR ACOSTA Attending Unavailable [facility] Primary Care Unavailable WEST, DR GAMALIEL Fischer Consulting Unavailable DIANA ., DR ACOSTA Consulting Unavailable [facility] Primary Care Unavailable KARASIK ., DR CAMACHO Admitting Unavailabl e KARASIK ., DR CAMACHO Attending Unavailabl e KARASIK ., DR CAMACHO Consulting Unavailabl e DIANA ., DR ACOSTA Consulting Unavailable ZIEBER, DR FELECIA Chadwick Consulting Unavailable DIANA ., DR ACOSTA Admitting Unavailable DIANA ., DR ACOSTA Attending Unavailable [facility] Primary Care Unavailable WEST, DR GAMALIEL Fischer Consulting Unavailable DIANA ., DR ACOSTA Consulting Unavailable DIANA ., DR ACOSTA Admitting Unavailable DIANA ., DR ACOSTA Attending Unavailable [facility] Primary Care Unavailable DIANA ., DR ACOSTA Consulting Unavailable DIANA ., DR ACOSTA Admitting Unavailable DIANA ., DR ACOSTA Attending Unavailable [facility] Primary Care Unavailable DIANA ., DR ACOSTA Consulting Unavailable ZIEBER, DR FELECIA Chadwick Consulting Unavailable DIANA ., DR ACOSTA Admitting Unavailable DIANA ., DR ACOSTA Attending Unavailable [facility] Primary Care Unavailable DIANA ., DR ACOSTA Consulting Unavailable DIANA ., DR ACOSTA Admitting Unavailable DIANA ., DR ACOSTA Attending Unavailable [facility] Primary Care Unavailable DIANA ., DR ACOSTA Consulting Unavailable [facility] Primary Care Unavailable DIANA ., DR ACOSTA Attending Unavailable DIANA ., DR ACOSTA Admitting Unavailable DIANA ., DR ACOSTA Admitting Unavailable DIANA ., DR ACOSTA Attending Unavailable [facility] Primary Care Unavailable DIANA ., DR ACOSTA Admitting Unavailable DIANA ., DR ACOSTA Attending Unavailable [facility] Primary Care Unavailable KARASIK ., DR CAMACHO Consulting Unavailabl e DIANA ., DR ACOSTA Consulting Unavailable DIANA ., DR ACOSTA Procedure Practitioner Unavail able ORLANDO PRASAD Consulting Unavailable JACQUES FLETCHER Consulting Unavailable DIANA ., DR ACOSTA Admitting Unavailable DIANA ., DR ACOSTA Attending Unavailable [facility] Primary Care Unavailable KARASIK ., DR CAMACHO Consulting Unavailabl e ZIEBER, DR FELECIA Chadwick Consulting Unavailable SADAF Wyatt Primary Care Provider MD Farhan Jean Attending Provider DO Oscar Poe Emergency Provider Pam, DO Arden Admit Provider Itzkocece, DO Arden Attending Provider [phone] FRED Ventura Other Provider UnavailMD Juan Edwards Other Provider HAROON Monique Other Provider [phone] MD Jacques Valerio Other Provider [phone] MD Edith Urias Other Provider [phone] SADAF Wyatt Primary Care Provider Bullimore, [employer] Elle E Emergency Provider BRANNON Valencia Emergency Provider Andie Wyatt PA-C Primary Care Provider [phone] CUONG ORTIZ Referring Unavailable ANDIE WYATT Primary Care Unavailable BARB KRAMER Attending Unavailable CUONG ORTIZ Attending Unavailable CUONG ORTIZ Attending Unavailable ANDIE WYATT Referring Unavailable ANDIE WYATT Primary Care Unavailable Andie Johnson Unavailable Unallocated, Noms Provider Primary Care Provider Cesar Jean Admitting Unavailab Cesar Mckay Attending Unavailab Andie Stern Primary Care Unavailable Itzdevorah, Arden Admitting Unavailable Arden Orozco Attending Unavailable Andie Wyatt Primary Care Unavailable Igor Ventura Consulting Unavailable Juan Krause Consulting Unavailable Ailyn Monique Consulting Unavailable Jacques Valerio Consulting Unavailable Edith Urias Consulting Unavailable Bullimore, Elle E Admitting Unavailable Bullimore, Elle E Attending Unavailable Andie Wyatt Primary Care Unavailable Johnson Valencia Admitting Unavailable Johnson Valencia Attending Unavailable Andie Wyatt Primary Care Unavailable Bullimore, Elle E Admitting Unavailable Bullimore, Elle E Attending Unavailable Andie Wyatt Primary Care Unavailable Allergies Allergy Classification Reported Allergen(s) Allergy Type Date of Onset Reaction(s) Facility (2 sources) Bee; Translations: [BEES] Propensity to adverse reactions (disorder) [address] [facility] Repository (2 sources) Mold spore; Translations: [MOLD SPORES] Propensity to adverse reactions (disorder) [address] [facility] Repository (18 sources) Penicillins; Translations: [PENICILLINS] Propensity to adverse reactions to drug (disorder) 4 Hives [facility] Repository (12 sources) Sulfonamides (Antibiotic); Translations: [SULFA (SULFONAMIDE ANTIBIOTICS)] Propensity to adverse reactions to drug (disorder) 8 AOF, Rash [facility] Repository (1 source) Bee/Wasp/Ant venom; Translations: [Bee Stings] Propensity to adverse reactions to drug (disorder) [facility] Repository (1 source) mold extract; Translations: [Mold] Drug Allergy [facility] Repository (1 source) Sulfonamides (Antibiotic); Translations: [sulfa drugs] Propensity to adverse reactions to drug (disorder) [facility] Repository (4 sources) bee venom; Translations: [BEE VENOM] Propensity to adverse reactions to drug (disorder) 8 [facility] Repository (1 source) OTHER; Translations: [OTHER] Propensity to adverse reactions to food (disorder) 8 [facility] Repository (1 source) MOLDS & SMUTS; Translations: [MOLDS & SMUTS] Propensity to adverse reactions to drug (disorder) 8 [facility] Repository (4 sources) SULFA ANTIBIOTICS; Translations: [SULFA ANTIBIOTICS] Propensity to adverse reactions to drug (disorder) 8 [facility] Repository (1 source) Sulfonamides (Antibiotic) Drug allergy (disorder) 4 [facility] Repository (4 sources) Bee Venom Protein (Honey Bee); Translations: [BEE VENOM PROTEIN (HONEY BEE)] Propensity to adverse reactions to drug 2 [facility] (1 source) Penicillin Drug Allergy 2 [facility] Repository (1 source) Sulfacetamide Drug Allergy 2 [facility] Repository Medications Current Medications Medication Drug Class(es) Dates [...] Discontinued 450 MG PO Three times daily August 20, 2022 1:00am December 18, 2022 11:25pm fluconazole 10 mg/ml oral suspension (2 sources) Azole Antifungal Start: 08-06-2022 fluconazole (DIFLUCAN) 10 mg/mL suspension 24 hr metoprolol succinate 50 mg extended release oral tablet (3 sources) beta-Adrenergic Farheen Start: 02-27-2023 take 1 tablet by mouth every twenty-four hours in the morning metoprolol succinate XL (Toprol-XL) 50 MG 24 hr tablet Take 50 mg by mouth in the morning. 0 02/27/2023 Active Niarada (No Known Home Meds) (2 sources) Start: 12-18-2022 Niarada (No Known Home Meds) Active December 18, 2022 12:00am ondansetron 4 mg disintegrating oral tablet (2 sources) Serotonin-3 Receptor Antagonist take 1 tablet by mouth every eight hours as needed for nausea and vomiting ondansetron ODT (ZOFRAN ODT) 4 mg disintegrating tablet Dissolve 1 tablet (4 mg total) on tongue every 8 (eight) hours as needed for nausea or vomiting. 0 Active 25/iron fum/folic/dha (-1 ORAL) (2 sources) 25/iron fum/folic/dha (-1 ORAL) Take by mouth. 0 Active Cwgcfzqd-Amo-Pn-FA (, w/Iron & FA,) 27-0.8 MG tablet (3 sources) Pegewtwx-Kls-Od-FA (, w/Iron & FA,) 27-0.8 MG tablet 1 (one) time each day at the same time. 0 Active FV-Vmt-OV-Natural Bridge-3 ( Gummies/DHA & FA) 0.4-32.5 MG chewable tablet (3 sources) Start: 07-09-2023 End: 08-08-2023 EZ-Vhg-MY-Natural Bridge-3 ( Gummies/DHA & FA) 0.4-32.5 MG chewable tablet Indications: 18 weeks gestation of Chew 0.4 mg in the morning. 30 tablet 11 07/09/2023 08/08/2023 Active Completed/Discontinued Medications Medication Drug Class(es) Dates [...] unspecified] Onset: 12-19-2022 12-19-2022 Chronic Alcohol-related disorders (2 sources) alcohol syndrome; 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)] Onset: 09-10-2022 09-10-2022 Chronic Anxiety disorders (4 sources) Anxiety; Translations: [Anxiety disorder, unspecified] Onset: 09-10-2022 09-10-2022 Chronic Attention-deficit, conduct, and disruptive behavior disorders (2 sources) Attention deficit hyperactivity disorder; Translations: [Attention-deficit hyperactivity disorder, unspecified type] Onset: 09-10-2022 09-10-2022 Chronic Immunizations and screening for infectious disease (7 sources) Encounter for screening for human papillomavirus (HPV); Translations: [Encounter for screening for infections with a predominantly sexual mode of transmission] Onset: 12-27-2021 Episodic Menstrual disorders (4 sources) Irregular menstruation, unspecified; Translations: [IRREGULAR MENSTRUATION UNSPECIFIED] Onset: 12-26-2021 Chronic Mood disorders (4 sources) Bipolar disorder; Translations: [Bipolar disorder, unspecified] Onset: 09-10-2022 09-10-2022 Chronic Nervous system congenital anomalies (5 sources) Congenital malformation of brain, unspecified; 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] Onset: 05-02-2022 05-02-2022 Chronic Normal and/or delivery (19 sources) Encounter for full-term uncomplicated delivery; Translations: [...] classified] Onset: 12-02-2017 Chronic Other congenital anomalies (2 sources) Talipes equinovarus; Translations: [Other specified congenital deformities [...] conditions (not mental disorders or infectious disease) (17 sources) Encounter for screening for malignant neoplasm [...] Onset: 11-30-2017 Unclassified (3 sources) 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 NA/UNS; Translations: [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 NA/UNS] Onset: 07-05-2022 Unclassified (1 [...] encounter] Onset: 12-19-2022 12-19-2022 Episodic Mood disorders (2 sources) Mood disorders Onset: 05-02-2022 05-02-2022 Other complications [...] MOTHER] Onset: 03-20-2022 Episodic Other complications of (2 sources) Supervision of with other poor reproductive or obstetric history, second trimester; Translations: [ with other poor obstetric history] Onset: 03-28-2022 03-28-2022 Episodic Other female genital disorders (1 source) Other specified noninflammatory disorders of vagina; Translations: [OTH SPEC NONINFLAMMATORY D/O VAGINA] Onset: 02-07-2022 Episodic [...] 12-12-2021 Episodic Unclassified (1 source) 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 [facility] AFP VALUE 70.2 ng/mL . [facility] COMMENT: Comment . [facility] Comment on above: Alma Chaudhary , Ph.D., [facility] Director References: Available Upon Request. Multiples Of Median Cutoffs For AFP Elevations Briscoe 2.5 Black 2.8 IDD 2.0 Twins 4.5 Abbreviation Definitions IDD - Insulin Dep Diabetes OSBR - Open Spina Bifida Risk For further inquiries contact [facility] at [phone]. This test was developed and its performance characteristics determined by [facility]. It has not been cleared or approved by the Food and Drug Administration. Performed at: [facility] [address] [place], [place] [id number] Correctional Nurse: Oz Harkins [facility], Phone: [phone] GEST. AGE ON COLLECTION DATE 20.4 . weeks [facility] GESTAT. AGE BASED ON LMP . [facility] Comment on above: Recalculations are n ot recommended when gestational dating by LMP and ultrasound are within 10 days. INSULIN DEP DIABETES No . [facility] INTERPRETATION Comment . [facility] Comment on above: Interpretation: Scre en Negative This result is screen negative for OSB. [...] Customer Services to discuss available options. The [employer] recommends amniocentesis be offered to women age 35 and older. [age] [facility] MULTIPLE GESTATION No . [facility] OSBR RISK 1 [place] 6301 . [facility] RACE . [facility] RESULTS Report . [facility] TEST RESULTS: Negative . [facility] WEIGHT 159 . lbs [facility] N N LMP [id number] 3 16 N 1 Y 159 N N N N White/ [facility] Urinalysis macro (dipstick) panel (U)on 07-18-2023 Bilirubin, UA Negative Negative - 4(70) +++ mg/dL [facility] Blood, UA Negative Negative - 50 Rakesh/mcL [facility] Clarity, UA Clear [facility] Color, UA Yellow [facility] Glucose, UA Negative Negative - 1999(110) ++++ mg/dL [facility] Interpretation and review of laboratory results Normal [facility] Ketones, UA Negative Negative - 160(16) ++++ mg/dL [facility] Leukocytes, UA Negative Negative - 500+++ Matti/mcL [facility] Nitrite, UA Negative Negative - Positive [facility] pH, UA 5.5 5 - 9 [facility] Protein, UA Negative Negative - 1999(20) ++++ mg/dL [facility] Spec Grav, UA 1.020 1 - 1.03 [facility] Urobilinogen, UA 1.0 0.2 - 12 mg/dL [facility] ABO/Rh Retypeon 12-19-2022 ABO/RH Recheck Result Positive Normal [facility] Comment on above: Result Comment: PERF ORMED BY: [facility] [address] [place] [address] PATHOLOGIST CHEMICAL PROJECT ENGINEER MALVIN MEDLEY M.D. Amphetamine Screen Ql (U)Ord ered By: Oscar Poe on 12-19-2022 Amphetamines Ql (U) Negative Negative [facility] Amylaseon 12-19-2022 Amylase [Catalytic activity/Vol] 35 U/L Normal 29-103 [facility] Comment on above: Performed By: #### C BC, CREAT, GLU, LYTES, AST, ETOH, BARB, LIPASE, CK, BUN ####[place] [id number] [address] Aspartate Amino Transferaseo n 12-19-2022 AST [Catalytic activity/Vol] 26 U/L Normal 13-39 [facility] Comment on above: Performed By: #### C BC, CREAT, GLU, LYTES, AST, ETOH, BARB, LIPASE, CK, BUN ####[place] [id number] [place] [id number] [facility] Automated erythrocytes count in urine sediment (number/area)Ordered By: Oscar Poe on 12-19-2022 RBC Auto (Urine sed) [#/Area] 5-9 [HPF] 0-4 [facility] Automated leukocytes count i n urine sediment (number/area)Ordered By: Oscar Poe on 12-19-2022 WBC Auto (Urine sed) [#/Area] 10-19 [HPF] 0-4 [facility] Barbiturates [Presence] in U rine by Screen methodOrdered By: Oscar Poe on 12-19-2022 Barbiturates Screen Ql (U) Negative Negative [facility] Benzodiazepines Screen Ql (U )Ordered By: Oscar Poe on 12-19-2022 Benzodiazepines Ql (U) Negative Negative [facility] Benzoylecgonine [Presence] i n Urine by Screen methodOrdered By: Oscar Poe on 12-19-2022 Benzoylecgonine Screen Ql (U) Negative Negative [facility] Bilirubin Test strip Ql (U)O rdered By: Oscar Poe on 12-19-2022 Bilirubin Ql (U) Negative Negative [facility] Blood Urea Nitrogenon 2022 Urea nitrogen [Mass/Vol] 21 mg/dL Normal 7-25 [facility] Comment on above: Performed By: #### C BC, CREAT, GLU, LYTES, AST, ETOH, BARB, LIPASE, CK, BUN ####[facility] [id number] cervical spine wo conon 0 12-19-2022 CT cervical spine wo con [facility] [address] [place] [address] CT Scan Report Signed Patient: Zuleika Wyatt MR#: [id number] : 1990 Acct:[id number] Age/Sex: 32 / F ADM Date: 12/19/22 Loc: Room: [address] [place] [address] Type: ADM INOo Attending Dr: Arden Orozco DO Copies to: DO Arden Jefferson DO Ordering Provider: Oscar Poe DO Date of Service: 12/18/22 CT/CT cervical spine wo con: f ([id number]) CT/CT head/brain wo con: f CT BRAIN [...] FRACTURE Impression dictated by: Rah Pimentel Jr., D.O.12/19/2022 10:25 AM Dictation Location: [place] [address] Transcribed By: [facility] 12/19/22 1025 Dictated By: Rah Pimentel Jr, DO 12/19/22 1016 Signed By: 12/19/22 1025 Normal [facility] CT head/brain wo conon 12-19 CT head/brain wo con [facility] [address] [place] [address] [address] Scan Report Signed Patient: Zuleika Wyatt MR#: [id number] : 1990 Acct:[id number] Age/Sex: 32 / F ADM Date: 12/19/22 Loc: 4 Room: [address] [place] [address] Type: DIS INOo Attending Dr: Arden Orozco [...] TRANSTENTORIAL HERNIATION. Impression dictated by: Rah Pimentel Jr., D.O.12/19/2022 3:28 PM Dictation Location: [place] [address] Transcribed By: DONTE 12/19/22 1528 Dictated By: Rah Pimentel Jr, 12/19/22 1524 Signed By: 12/19/22 [address] [facility] [address] lumbar spine wo radha CT lumbar spine wo con [facility] Main Fence [address] [place] [address] CT Scan Report Signed Patient: Zuleika Wyatt MR#: [id number] : 1990 Acct:[id number] Age/Sex: 32 / F ADM Date: 12/19/22 Loc: Room: [address] [place] [address] Type: ADM INOo Attending Dr: Arden Orozco DO Copies to: DO Arden Jefferson DO Ordering Provider: Oscar Poe DO Date of Service: 12/18/22 CT/CT thoracic spine wo con: f ([id number]) CT/CT lumbar spine wo con: f CT [...] narrowing or hypertrophy. The ribs within the bukfk-dp-jdpb appear intact. No paraspinal soft tissue abnormalities are present. The ascending aorta is mildly ectatic. The heart is not fully imaged though it is at least borderline prominent. There is no consolidation, pleural effusion or pneumothorax within the hibbp-dl-ynpo. No lumbar compression fractures are identified. There [...] The intra-abdominal and pelvic structures within the wpsly-lj-mimh show no contributory findings. CT/CT thoracic spine wo con IMPRESSION: MILD THORACIC SCOLIOSIS. NO ACUTE BONY INJURY INVOLVING THE THORACIC OR LUMBAR SPINE. Impression dictated by: Adela Mahan M.D.12/19/2022 10:36 AM Dictation Location: [place] [address] Transcribed By: [facility] 12/19/22 1036 Dictated By: Adela Mahan MD 12/19/22 1026 Signed By: 12/19/22 1036 Normal [facility] Cannabinoids [Presence] in U rine by Screen methodOrdered By: Oscar Poe on 12-19-2022 Cannabinoids Screen Ql (U) Positive Negative [facility] Comment on above: These are unconfirme d results and should not be used for legal purposes. Drug Cut-Off Concentration: AMPH 1000 ng/mL SEEMA 200 ng/mL LAZ 200 ng/mL COCM 300 ng/mL OP 300 ng/mL PCP 25 ng/mL THC 20 ng/mL Color Auto (U)Ordered By: Fernando Poe on 12-19-2022 Color (U) Yellow Yellow [facility] Complete Blood Count Auto Di ffon 12-19-2022 Basophils (Bld) [#/Vol] 0.1 10*3/uL Normal 0.0-0.2 [facility] Comment on above: Result Comment: PERF ORMED BY: [facility] [address] [place] [address] PATHOLOGIST CHEMICAL PROJECT ENGINEER MALVIN MEDLEY M.D. Performed By: #### C BC, CREAT, GLU, LYTES, AST, ETOH, BARB, LIPASE, CK, BUN ####[place] [id number] [place] [id number] [facility] Basophils/100 WBC (Bld) 0.7 % Normal . [facility] Comment on above: Performed By: #### C BC, CREAT, GLU, LYTES, AST, ETOH, BARB, LIPASE, CK, BUN ####[address] Eosinophils (Bld) [#/Vol] 0.0 10*3/uL Normal 0.0-0.45 [facility] Comment on above: Performed By: #### C BC, CREAT, GLU, LYTES, AST, ETOH, BARB, LIPASE, CK, BUN ####[address] Eosinophils/100 WBC (Bld) 0.2 % Normal . [facility] Comment on above: Performed By: #### C BC, CREAT, GLU, LYTES, AST, ETOH, BARB, LIPASE, CK, BUN ####[address] Erythrocyte distribution width (RBC) [Ratio] 14.4 % Normal 11.9-15.3 [facility] Comment on above: Performed By: #### C BC, CREAT, GLU, LYTES, AST, ETOH, BARB, LIPASE, CK, BUN ####[address] Hematocrit (Bld) [Volume fraction] 36.2 % Normal 34.0-46.4 [facility] Comment on above: Performed By: #### C BC, CREAT, GLU, LYTES, AST, ETOH, BARB, LIPASE, CK, BUN ####[address] Hemoglobin (Bld) [Mass/Vol] 11.9 g/dL Normal 11.8-15.4 [facility] Comment on above: Performed By: #### C BC, CREAT, GLU, LYTES, AST, ETOH, BARB, LIPASE, CK, BUN ####[address] Lymphocytes (Bld) [#/Vol] 2.2 10*3/uL Normal 1.00-4.8 [facility] Comment on above: Performed By: #### C BC, CREAT, GLU, LYTES, AST, ETOH, BARB, LIPASE, CK, BUN ####[address] Lymphocytes/100 WBC (Bld) 21.8 % Normal . [facility] Comment on above: Performed By: #### C BC, CREAT, GLU, LYTES, AST, ETOH, BARB, LIPASE, CK, BUN ####[address] MCH (RBC) [Entitic mass] 26.9 pg Normal 24.7-34.3 [facility] Comment on above: Performed By: #### C BC, CREAT, GLU, LYTES, AST, ETOH, BARB, LIPASE, CK, BUN ####[address] MCV (RBC) [Entitic vol] 82.1 fL Normal 80-100 [facility] Comment on above: Performed By: #### C BC, CREAT, GLU, LYTES, AST, ETOH, BARB, LIPASE, CK, BUN ####[address] Mean Corpuscular HGB Conc 32.8 g/dL Normal 32.0-35.0 [facility] Comment on above: Performed By: #### C BC, CREAT, GLU, LYTES, AST, ETOH, BARB, LIPASE, CK, BUN ####[address] Monocytes (Bld) [#/Vol] 0.8 10*3/uL Normal 0.0-0.8 [facility] Comment on above: Performed By: #### C BC, CREAT, GLU, LYTES, AST, ETOH, BARB, LIPASE, CK, BUN ####[address] Monocytes/100 WBC (Bld) 22.19 % High 0.00-20.00 [facility] Comment on above: Result Comment: For adults in ED, MDW > 20.0 may be associated with a higher risk of sepsis during the first 12 hrs of hospital admission Performed By: #### C BC, CREAT, GLU, LYTES, AST, ETOH, BARB, LIPASE, CK, BUN ####[address] Monocytes/100 WBC (Bld) 7.4 % Normal . [facility] Comment on above: Performed By: #### C BC, CREAT, GLU, LYTES, AST, ETOH, BARB, LIPASE, CK, BUN ####[address] Neutrophils (Bld) [#/Vol] 7.2 10*3/uL Normal 1.8-7.7 [facility] Comment on above: Performed By: #### C BC, CREAT, GLU, LYTES, AST, ETOH, BARB, LIPASE, CK, BUN ####[address] Neutrophils/100 WBC (Bld) 69.9 % Normal . [facility] Comment on above: Performed By: #### C BC, CREAT, GLU, LYTES, AST, ETOH, BARB, LIPASE, CK, BUN ####[address] NRBC% 0.1 /100{WBC} Normal 0-0.5 [facility] Comment on above: Performed By: #### C BC, CREAT, GLU, LYTES, AST, ETOH, BARB, LIPASE, CK, BUN ####[address] Platelet mean volume (Bld) [Entitic vol] 8.1 fL Normal 6.3-10.7 [facility] Comment on above: Performed By: #### C BC, CREAT, GLU, LYTES, AST, ETOH, BARB, LIPASE, CK, BUN ####[address] Platelets (Bld) [#/Vol] 223 10*3/uL Normal 150-450 [facility] Comment on above: Performed By: #### C BC, CREAT, GLU, LYTES, AST, ETOH, BARB, LIPASE, CK, BUN ####[address] RBC (Bld) [#/Vol] 4.42 10*6/uL Normal 3.60-5.00 [facility] Comment on above: Performed By: #### C BC, CREAT, GLU, LYTES, AST, ETOH, BARB, LIPASE, CK, BUN ####[address] WBC (Bld) [#/Vol] 10.3 10*3/uL Normal 3.8-11.6 [facility] Comment on above: Performed By: #### C BC, CREAT, GLU, LYTES, AST, ETOH, BARB, LIPASE, CK, BUN ####[address] Creatine Kinaseon 12-19-2022 CK [Catalytic activity/Vol] 50 U/L Normal 30-223 [facility] Comment on above: Result Comment: PERF ORMED BY: [facility] [address] [place] [address] PATHOLOGIST CHEMICAL PROJECT ENGINEER MALVIN MEDLEY M.D. Performed By: #### C BC, CREAT, GLU, LYTES, AST, ETOH, BARB, LIPASE, CK, BUN ####[place] [id number] [facility] Creatinineon 12-19-2022 Creatinine [Mass/Vol] 0.84 mg/dL Normal 0.60-1.20 [facility] Comment on above: Performed By: #### C BC, CREAT, GLU, LYTES, AST, ETOH, BARB, LIPASE, CK, BUN ####[address] Creatinine Clr Calc Pharmacy 98.76 [facility] Comment on above: Performed By: #### C BC, CREAT, GLU, LYTES, AST, ETOH, BARB, LIPASE, CK, BUN ####[address] GFR/1.73 sq M.predicted MDRD (S/P/Bld) [Vol rate/Area] mL/min/{1.73_m2} [facility] Comment on above: Performed By: #### C BC, CREAT, GLU, LYTES, AST, ETOH, BARB, LIPASE, CK, BUN ####[facility] [id number] [place] [address] [place] Dipstick and Microscopicon 0 12-19-2022 Appearance (U) Clear Normal Clear [facility] Comment on above: Order Comment: Name Collection Type:: Clean-Voided Midstream Performed By: #### U RDS, UHCG, CUU, ADDONUAPLUS #### [facility] [address] [place] [address] Bacteria,Urine None Seen Normal None Seen [facility] Comment on above: Order Comment: Name Collection Type:: Clean-Voided Midstream Performed By: #### U RDS, UHCG, CUU, ADDONUAPLUS #### [address] Bilirubin,Urine Negative Normal Negative [facility] Comment on above: Order Comment: Name Collection Type:: Clean-Voided Midstream Performed By: #### U RDS, UHCG, CUU, ADDONUAPLUS #### [facility] [address] [place] [address] Color (U) Yellow Normal Yellow [facility] Comment on above: Order Comment: Name Collection Type:: Clean-Voided Midstream Performed By: #### U RDS, UHCG, CUU, ADDONUAPLUS #### [facility] [address] [place] [address] [place] Glucose Ql (U) Normal Normal Normal [facility] Comment on above: Order Comment: Name Collection Type:: Clean-Voided Midstream Performed By: #### U RDS, UHCG, CUU, ADDONUAPLUS #### [facility] [address] [place] [address] [place] Hyaline Casts,Urine 0-8 Normal 0-8 [facility] Comment on above: Order Comment: Name Collection Type:: Clean-Voided Midstream Performed By: #### U RDS, UHCG, CUU, ADDONUAPLUS #### [place] [address] [place] Ketones Ql (U) 1+ High Negative [facility] Comment on above: Order Comment: Name Collection Type:: Clean-Voided Midstream Performed By: #### U RDS, UHCG, CUU, ADDONUAPLUS #### [facility] [address] [place] [address] Leukocyte esterase Test strip Ql (U) 2+ High Negative [facility] Comment on above: Order Comment: Name Collection Type:: Clean-Voided Midstream Performed By: #### U RDS, UHCG, CUU, ADDONUAPLUS #### [facility] [address] [place] [address] Nitrite,Urine Negative Normal Negative [facility] Comment on above: Order Comment: Name Collection Type:: Clean-Voided Midstream Performed By: #### U RDS, UHCG, CUU, ADDONUAPLUS #### [facility] [address] [place] [address] Occult Blood,Urine Negative Normal Negative [facility] Comment on above: Order Comment: Name Collection Type:: Clean-Voided Midstream Performed By: #### U RDS, UHCG, CUU, ADDONUAPLUS #### [facility] [address] [place] [address] pH (U) 5.5 [pH] Normal 5.0-9.0 [facility] Comment on above: Order Comment: Name Collection Type:: Clean-Voided Midstream Performed By: #### U RDS, UHCG, CUU, ADDONUAPLUS #### [facility] [address] [place] [address] [place] Protein,Urine Negative Normal Negative [facility] Comment on above: Order Comment: Name Collection Type:: Clean-Voided Midstream Performed By: #### U RDS, UHCG, CUU, ADDONUAPLUS #### [facility] [address] [place] [address] [place] RBC,Urine 5-9 High 0-4 [facility] Comment on above: Order Comment: Name Collection Type:: Clean-Voided Midstream Performed By: #### U RDS, UHCG, CUU, ADDONUAPLUS #### [facility] [address] [place] [address] Specificy [place],Urine 1.025 Normal 1.001-1.03 0 [facility] Comment on above: Order Comment: Name Collection Type:: Clean-Voided Midstream Performed By: #### U RDS, UHCG, CUU, ADDONUAPLUS #### [facility] [address] [place] [address] [place] Squamous Epithelial Cell,Urine 3-4 High 0-2 [facility] Comment on above: Order Comment: Name Collection Type:: Clean-Voided Midstream Performed By: #### U RDS, UHCG, CUU, ADDONUAPLUS #### [facility] [address] [place] [address] Urobilinogen,Urine Normal Normal Normal [facility] Comment on above: Order Comment: Name Collection Type:: Clean-Voided Midstream Performed By: #### U RDS, UHCG, CUU, ADDONUAPLUS #### [facility] [address] [place] [address] WBC,Urine 10-19 High 0-4 [facility] Comment on above: Order Comment: Name Collection Type:: Clean-Voided Midstream Performed By: #### U RDS, UHCG, CUU, ADDONUAPLUS #### [facility] [address] [place] [address] Drug Screen,Urineon 12-20-19 23 Amphetamine Screen,Urine Negative Normal Negative [facility] Comment on above: Performed By: #### U RDS, UHCG, CUU, ADDONUAPLUS #### [facility] [address] [place] [address] Barbiturate Screen,Urine Negative Normal Negative [facility] Comment on above: Performed By: #### U RDS, UHCG, CUU, ADDONUAPLUS #### [facility] [address] [place] [address] Benzodiazepines Screen,Urine Negative Normal Negative [facility] Comment on above: Performed By: #### U RDS, UHCG, CUU, ADDONUAPLUS #### [facility] [address] [place] [address] Cannabinoid Screen,Urine Positive High Negative [facility] Comment on above: Result Comment: Thes e are unconfirmed results and should not be used for legal purposes. Drug Cut-Off Concentration: AMPH 1000 ng/mL SEEMA 200 ng/mL LAZ 200 ng/mL COCM 300 ng/mL OP 300 ng/mL PCP 25 ng/mL THC 20 ng/mL PERFORMED BY: [place] [address] PATHOLOGIST CHEMICAL PROJECT ENGINEER MALVIN MEDLEY M.D. Performed By: #### U RDS, UHCG, CUU, ADDONUAPLUS #### [address] Cocaine Screen,Urine Negative Normal Negative [facility] Comment on above: Performed By: #### U RDS, UHCG, CUU, ADDONUAPLUS #### [address] Opiate Screen,Urine Negative Normal Negative [facility] Comment on above: Performed By: #### U RDS, UHCG, CUU, ADDONUAPLUS #### [address] Phencyclidine Screen,Urine Negative Normal Negative [facility] Comment on above: Performed By: #### U RDS, UHCG, CUU, ADDONUAPLUS #### [address] ECG 12 lead ECGon 12-19-2022 ECG [address] [facility] [address] [place] [address] Electrocardiograph Report Signed Patient: Zuleika Wyatt MR#: [id number] : 1990 Acct:[id number] Age/Sex: 32 / F ADM Date: 12/19/22 Loc: 4 Room: [address] [place] [address] Type: DIS INOo Attending Dr: Arden Orozco [...] ECGs available Confirmed by OSCAR POE DO ([id number]) on 12/19/2022 10:18:39 PM Referred By: Electronically Signed By:OSCAR POE DO Transcribed By: MUS Signed By Oscar Poe DO 12/19 2218 Normal [facility] Electrolyteson 12-19-2022 Anion gap [Moles/Vol] 14.5 mmol/L Normal 6.0-15.0 [facility] Comment on above: Performed By: #### C BC, CREAT, GLU, LYTES, AST, ETOH, BARB, LIPASE, CK, BUN ####[address] Chloride [Moles/Vol] 105 mmol/L Normal 98-107 [facility] Comment on above: Performed By: #### C BC, CREAT, GLU, LYTES, AST, ETOH, BARB, LIPASE, CK, BUN ####[address] CO2 [Moles/Vol] 20.0 mmol/L Low 21.0-31.0 [facility] Comment on above: Performed By: #### C BC, CREAT, GLU, LYTES, AST, ETOH, BARB, LIPASE, CK, BUN ####[address] Potassium [Moles/Vol] 3.5 mmol/L Normal 3.5-5.1 [facility] Comment on above: Performed By: #### C BC, CREAT, GLU, LYTES, AST, ETOH, BARB, LIPASE, CK, BUN ####[address] Sodium [Moles/Vol] 136 mmol/L Normal 136-145 [facility] Comment on above: Performed By: #### C BC, CREAT, GLU, LYTES, AST, ETOH, BARB, LIPASE, CK, BUN ####[address] Ethyl Alcohol Profileon Ethanol [Mass/Vol] mg/dL Normal [facility] Comment on above: Performed By: #### C BC, CREAT, GLU, LYTES, AST, ETOH, BARB, LIPASE, CK, BUN ####[address] Percent Ethanol Not performed Normal [facility] Comment on above: Result Comment: PERF ORMED BY: [facility] [address] [place] [address] PATHOLOGIST CHEMICAL PROJECT ENGINEER MALVIN MEDLEY M.D. Performed By: #### C BC, CREAT, GLU, LYTES, AST, ETOH, BARB, LIPASE, CK, BUN ####[place] [id number] [facility] Glucoseon 12-19-2022 Glucose [Mass/Vol] 93 mg/dL Normal 70-100 [facility] Comment on above: Result Comment: [facility] Glucose Reference Range is dependent on time and content of last meal. Glucose of more than 200 mg/dL in a nonstressed, ambulatory subject supports the diagnosis of Diabetes Mellitus. ADA recommended reference range Performed By: #### C BC, CREAT, GLU, LYTES, AST, ETOH, BARB, LIPASE, CK, BUN ####[place] [id number] [facility] HCG ( test) IAclemencia d Ql (U)Ordered By: Oscar Poe on 12-19-2022 HCG ( test) Ql (U) Negative [facility] HCG,Qualitative Serumon HCG,Qualitative Serum Negative Normal [facility] Comment on above: Result Comment: PERF ORMED BY: [facility] [address] [place] [address] PATHOLOGIST CHEMICAL PROJECT ENGINEER MALVIN MEDLEY M.D. Performed By: #### H CGQUAL #### [facility] [address] [place] [id number] [facility] HCG,Urineon 12-19-2022 Beta HCG ( test) Ql (U) Negative Normal [facility] Comment on above: Order Comment: Name Collection Type:: Clean-Voided Midstream Result Comment: PERF ORMED BY: [place] [address] PATHOLOGIST CHEMICAL PROJECT ENGINEER MALVIN MEDLEY M.D. Performed By: #### U RDS, UHCG, CUU, ADDONUAPLUS #### [facility] [address] [place], [place] [id number] [facility] Ketones Auto test strip (U) [Mass/Vol]Ordered By: Oscar Poe on 12-19-2022 Ketones (U) [Mass/Vol] 1+ Negative [facility] - UrinalysisOrder ed By: Oscar Poe on 12-19-2022 Hyaline casts LM Ql (Urine sed) 0-8 [LPF] 0-8 [facility] Lipaseon 12-19-2022 Lipase [Catalytic activity/Vol] 29.0 U/L Normal 11.0-82.0 [facility] Comment on above: Result Comment: PERF ORMED BY: [place] [address] PATHOLOGIST CHEMICAL PROJECT ENGINEER MALVIN MEDLEY M.D. Performed By: #### C BC, CREAT, GLU, LYTES, AST, ETOH, BARB, LIPASE, CK, BUN ####[facility] [id number] [place] [id number] [facility] Nitrite Test strip Ql (U)Ord ered By: Oscar Poe on 12-19-2022 Nitrite Ql (U) Negative Negative [facility] Opiates [Presence] in Urine by Screen methodOrdered By: Oscar Poe on 12-19-2022 Opiates Screen Ql (U) Negative Negative [facility] Phencyclidine Screen Ql (U)O rdered By: Oscar Poe on 12-19-2022 Phencyclidine Ql (U) Negative Negative [facility] Protein Auto test strip (U) [Mass/Vol]Ordered By: Oscar Poe on 12-19-2022 Protein (U) [Mass/Vol] Negative Negative [facility] Specific gravity Auto test s trip (U) [Rel density]Ordered By: Oscar Poe on 12-19-2022 Specific gravity (U) [Rel density] 1.025 1.001-1.03 0 [facility] Squamous epithelial cells de tection in urine sediment by light microscopyOrdered By: Oscar Poe on 12-19-2022 Epithelial cells.squamous LM Ql (Urine sed) 3-4 [HPF] 0-2 [facility] Type and Screenon 12-19-2022 ABO and Rh group Nom (Bld) Blood group A Rh(D) positive Normal [facility] Comment on above: Result Comment: PERF ORMED BY: [place] [address] PATHOLOGIST CHEMICAL PROJECT ENGINEER MALVIN MEDLEY M.D. Urine Cultureon 12-19-2022 Bacteria identified Cx Nom (U) >100,000 colonies/ml mixed bacterial skin contaminants 2 Days PERFORMED BY: [place] [address] PATHOLOGIST CHEMICAL PROJECT ENGINEER MALVIN MEDLEY M.D. [facility] Comment on above: Performed By: #### U RDS, UHCG, CUU, ADDONUAPLUS ####[facility] [id number] [place] [address] [facility] Urine bacteria detection by automated methodOrdered By: Oscar Poe on 12-19-2022 Bacteria Auto Ql (U) None seen None Seen [facility] Urine clarity by refractomet ry automatedOrdered By: Oscar Poe on 12-19-2022 Clarity Refractometry automated (U) Clear Clear [facility] Urine culture routineOrdered By: Oscar Poe on 12-19-2022 Bacteria identified Cx Nom (U) 2 Days [facility] Urine glucose measurement by automated test strip (mass/volume)Ordered By: Oscar Poe on 12-19-2022 Glucose Auto test strip (U) [Mass/Vol] Normal mg/dL Normal [facility] Urine hemoglobin detection b y automated test stripOrdered By: Oscar Poe on 12-19-2022 Hemoglobin Auto test strip Ql (U) Negative Negative [facility] Urine leukocyte esterase det ection by automated test stripOrdered By: Oscar Poe on 12-19-2022 Leukocyte esterase Auto test strip Ql (U) 2+ Negative [facility] Urobilinogen Auto test strip (U) [Mass/Vol]Ordered By: Oscar Poe on 12-19-2022 Urobilinogen (U) [Mass/Vol] Normal mg/dL Normal [facility] XR knee BI 2Von 12-19-2022 XR knee BI [address]V [facility] [address] [place] [address] XRay Report Signed Patient: Zuleika Wyatt MR#: [id number] : 1990 Acct:[id number] Age/Sex: 32 / F ADM Date: 12/19/22 Loc: Room: [address] [place] [address] Type: ADM INOo Attending Dr: Arden Orozco DO Copies to: DO Aredn Jefferson DO Ordering Provider: Oscar Poe DO Date of Service: 12/18/22 XR/XR knee BI 2V: f ([id number]) XR/XR chest 1V portable: TRAUMATIC INJURY ([id number]) XR/XR pelvis 1-2V: f ([id number]) XR/XR foot LT 2V: f CLINICAL DATA: [...] Adela Mahan M.D.12/19/2022 10:41 AM Dictation Location: [place] [address] Transcribed By: [facility] 12/19/22 1041 Dictated By: Adela Mahan MD 12/19/22 1036 Signed By: 12/19/22 1041 Normal [facility] pH Auto test strip (U)Ordere d By: Oscar Poe on 12-19-2022 pH (U) 5.5 [pH] 5.0-9.0 [facility] Amylase [Enzymatic activity/ volume] in Serum or PlasmaOrdered By: Oscar Poe on 12-18-2022 Amylase [Catalytic activity/Vol] 35 U/L 29-103 [facility] Aspartate aminotransferase [ Enzymatic activity/volume] in Serum or PlasmaOrdered By: Oscar Poe on 12-18-2022 AST [Catalytic activity/Vol] 26 U/L 13-39 [facility] Basophils Auto (Bld) [#/Vol] Ordered By: Oscar Poe on 12-18-2022 Basophils (Bld) [#/Vol] 0.1 10*3/uL 0.0-0.2 [facility] Basophils/100 WBC Auto (Bld) Ordered By: Oscar Poe on 12-18-2022 Basophils/100 WBC (Bld) 0.7 % . [facility] Carbon dioxide, total [Moles /volume] in Serum or PlasmaOrdered By: Oscar Poe on 12-18-2022 CO2 [Moles/Vol] 20.0 mmol/L 21.0-31.0 [facility] Chloride [Moles/volume] in S gwendolyn or PlasmaOrdered By: Oscar Poe on 12-18-2022 Chloride [Moles/Vol] 105 mmol/L 98-107 [facility] Choriogonadotropin.beta subu nit [Units/volume] in Serum or PlasmaOrdered By: Oscar Poe on 12-18-2022 HCG.beta subunit Qn Negative [facility] Creatine kinase [Enzymatic a ctivity/volume] in Serum or PlasmaOrdered By: Oscar Poe on 12-18-2022 CK [Catalytic activity/Vol] 50 U/L 30-223 [facility] Creatinine [Mass/volume] in Serum or PlasmaOrdered By: Oscar Poe on 12-18-2022 Creatinine [Mass/Vol] 0.84 mg/dL 0.60-1.20 [facility] Eosinophils Auto (Bld) [#/Vo l]Ordered By: Oscar Poe on 12-18-2022 Eosinophils (Bld) [#/Vol] 0.0 10*3/uL 0.0-0.45 [facility] Eosinophils/100 WBC Auto (Bl d)Ordered By: Oscar Poe on 12-18-2022 Eosinophils/100 WBC (Bld) 0.2 % . [facility] Erythrocyte distribution wid th Auto (RBC) [Ratio]Ordered By: Oscar Poe on 12-18-2022 Erythrocyte distribution width (RBC) [Ratio] 14.4 % 11.9-15.3 [facility] Ethanol [Mass/volume] in Ser um or PlasmaOrdered By: Oscar Poe on 12-18-2022 Ethanol [Mass/Vol] mg/dL [facility] Ethanol [Mass/Vol] TNP [facility] Comment on above: Test not performed Glucose [Mass/volume] in Ser um or PlasmaOrdered By: Oscar Poe on 12-18-2022 Glucose [Mass/Vol] 93 mg/dL 70-100 [facility] Comment on above: ADA recommended refe rence rangeRandom Glucose Reference Range is dependent on time and content of last meal. Glucose of more than 200 mg/dL in a nonstressed, ambulatory subject supports the diagnosis of Diabetes Mellitus. Hematocrit Auto (Bld) [Volum e fraction]Ordered By: Oscar Poe on 12-18-2022 Hematocrit (Bld) [Volume fraction] 36.2 % 34.0-46.4 [facility] Hemoglobin [Mass/volume] in BloodOrdered By: Oscar Poe on 12-18-2022 Hemoglobin (Bld) [Mass/Vol] 11.9 g/dL 11.8-15.4 [facility] Leukocytes [#/volume] correc osmel for nucleated erythrocytes in Blood by Automated counOrdered By: Oscar Poe on 12-18-2022 WBC corrected for nucl RBC Auto (Bld) [#/Vol] 10.3 10*3/uL 3.8-11.6 [facility] Lipase [Enzymatic activity/v olume] in Serum or PlasmaOrdered By: Oscar Poe on 12-18-2022 Lipase [Catalytic activity/Vol] 29.0 U/L 11.0-82.0 [facility] Lymphocytes Auto (Bld) [#/Vo l]Ordered By: Oscar Poe on 12-18-2022 Lymphocytes (Bld) [#/Vol] 2.2 10*3/uL 1.00-4.8 [facility] Lymphocytes/100 WBC Auto (Bl d)Ordered By: Oscar Poe on 12-18-2022 Lymphocytes/100 WBC (Bld) 21.8 % . [facility] MCH Auto (RBC) [Entitic mass ]Ordered By: Oscar Poe on 12-18-2022 MCH (RBC) [Entitic mass] 26.9 pg 24.7-34.3 [facility] MCHC Auto (RBC) [Mass/Vol]Or dered By: Oscar Poe on 12-18-2022 MCHC (RBC) [Mass/Vol] 32.8 g/dL 32.0-35.0 [facility] MCV Auto (RBC) [Entitic vol] Ordered By: Oscar Poe on 12-18-2022 MCV (RBC) [Entitic vol] 82.1 fL 80-100 [facility] Monocyte distribution width [Entitic volume] in Blood by AutomatedOrdered By: Oscar Poe on 12-18-2022 Monocyte distribution width Auto (Bld) [Entitic vol] 22.19 % 0.00-20.00 [facility] Comment on above: For adults in ED, MD W > 20.0 may be associated with a higher risk of sepsis during the first 12 hrs of hospital admission Monocytes Auto (Bld) [#/Vol] Ordered By: Oscar Poe on 12-18-2022 Monocytes (Bld) [#/Vol] 0.8 10*3/uL 0.0-0.8 [facility] Monocytes/100 WBC Auto (Bld) Ordered By: Oscar Poe on 12-18-2022 Monocytes/100 WBC (Bld) 7.4 % . [facility] Neutrophils Auto (Bld) [#/Vo l]Ordered By: Oscar Poe on 12-18-2022 Neutrophils (Bld) [#/Vol] 7.2 10*3/uL 1.8-7.7 [facility] Neutrophils/100 WBC Auto (Bl d)Ordered By: Oscar Poe on 12-18-2022 Neutrophils/100 WBC (Bld) 69.9 % . [facility] No Panel InformationOrdered By: Oscar Poe on 12-18-2022 Estimated GFR (CKD-EPI) > 60.0 mL/Min [facility] Creatinine Clearance (Chem 98.76 [facility] Nucleated erythrocytes [Pres ence] in Blood by Automated countOrdered By: Oscar Poe on 12-18-2022 Nucleated RBC Auto Ql (Bld) 0.1 /100{WBC} 0-0.5 [facility] Platelet mean volume Auto (B ld) [Entitic vol]Ordered By: Oscar Poe on 12-18-2022 Platelet mean volume (Bld) [Entitic vol] 8.1 fL 6.3-10.7 [facility] Platelets Auto (Bld) [#/Vol] Ordered By: Oscar Peo on 12-18-2022 Platelets (Bld) [#/Vol] 223 10*3/uL 150-450 [facility] Potassium [Moles/volume] in Serum or PlasmaOrdered By: Oscar Poe on 12-18-2022 Potassium [Moles/Vol] 3.5 mmol/L 3.5-5.1 [facility] RBC Auto (Bld) [#/Vol]Ordere d By: Oscar Poe on 12-18-2022 RBC (Bld) [#/Vol] 4.42 10*6/uL 3.60-5.00 [facility] Serum or plasma anion gap de terminationOrdered By: Oscar Poe on 12-18-2022 Anion gap [Moles/Vol] 14.5 mmol/L 6.0-15.0 [facility] Sodium [Moles/volume] in Ser um or PlasmaOrdered By: Oscar Poe on 12-18-2022 Sodium [Moles/Vol] 136 mmol/L 136-145 [facility] Urea nitrogen [Mass/volume] in Serum or PlasmaOrdered By: Oscar Poe on 12-18-2022 Urea nitrogen [Mass/Vol] 21 mg/dL 7-25 [facility] WBC Auto (Bld) [#/Vol]Ordere d By: Oscar Poe on 12-18-2022 WBC (Bld) [#/Vol] 10.3 10*3/uL 3.8-11.6 [facility] PRBC LEUKOREDUCEDon 07-14-19 ABO and Rh group Nom (Bld) Cross Match Result Compatible Unit Blood Type A Pos Unit Number [id number] Status Information Released Specimen Exp Date Product ID Red Blood Cells Product Code [id number] Cross Match Result Compatible Unit Blood Type A Pos Unit Number [id number] Status Information Transfused Product ID Red Blood Cells Product Code [id number] Normal [facility] Comment on above: Performed By: #### R UBIGG #### [facility] [address] [place] [address] Dr. Juan Antonio Ibarra CBC AUTO DIFFon 07-07-2022 BASO # 0.0 103/ul Normal 0.0-0.1 [facility] Comment on above: Performed By: #### A 1C #### [facility] [address] [place] [address] Dr. Juan Antonio Ibarra Basophils/100 WBC (Bld) 0.3 % Normal 0.2-2.0 [facility] Comment on above: Performed By: #### A 1C #### [facility] [address] [place] [address] Dr. Juan Antonio Ibarra EO # 0.1 103/ul Normal 0.0-0.7 [facility] Comment on above: Performed By: #### A 1C #### [facility] [address] [place] [address] Dr. Juan Antonio Ibarra Eosinophils/100 WBC (Bld) 0.9 % Normal 0.9-7.0 [facility] Comment on above: Performed By: #### A 1C #### [facility] [address] [place] [address] Dr. Juan Antonio Ibarra Erythrocyte distribution width (RBC) [Ratio] 14.5 % Normal 11.0-15.0 [facility] Comment on above: Performed By: #### A 1C #### [facility] [address] [place] [address] Dr. Juan Antonio Ibarra Hematocrit (Bld) [Volume fraction] 22.5 % Critically low 36.0-48.0 [facility] Comment on above: Performed By: #### A 1C #### [facility] [address] [place] [address] Dr. Juan Antonio Ibarra Hemoglobin (Bld) [Mass/Vol] 7.9 g/dL Critically low 12.0-16.0 [facility] Comment on above: Performed By: #### A 1C #### [facility] [address] [place] [address] Dr. Juan Antonio Ibarra IG # 0.10 10e3/ul Critically high 0.00-0.03 [facility] Comment on above: Performed By: #### A 1C #### [facility] [address] [place] [address] Dr. Juan Antonio Ibarra IG % 0.9 % Critically high 0.0-0.5 [facility] Comment on above: Performed By: #### A 1C #### [facility] [address] [place] [address] Dr. Juan Antonio Ibarra LYMPH # 1.6 103/ul Normal 1.2-3.8 [facility] Comment on above: Performed By: #### A 1C #### [facility] [address] [place] [address] Dr. Juan Antonio Ibarra Lymphocytes/100 WBC (Bld) 14.0 % Critically low 20.5-60.0 [facility] Comment on above: Performed By: #### A 1C #### [facility] [address] [place] [address] Dr. Juan Antonio Ibarra MANUAL DIFF REQ NO Normal [facility] Comment on above: Performed By: #### A 1C #### [facility] [address] [place] [address] Dr. Juan Antonio Ibarra MCH (RBC) [Entitic mass] 26.4 pg Critically low 26.7-34.0 [facility] Comment on above: Performed By: #### A 1C #### [facility] [address] [place] [address] Dr. Juan Antonio Ibarra MCHC (RBC) [Mass/Vol] 35.1 g/dL Normal 29.9-35.2 [facility] Comment on above: Performed By: #### A 1C #### [facility] [address] [place] [address] Dr. Juan Antonio Ibarra MCV (RBC) [Entitic vol] 75.3 fL Critically low 81.0-99.0 [facility] Comment on above: Performed By: #### A 1C #### [facility] [address] [place] [address] Dr. Juan Antonio Ibarra MONO # 0.7 103/ul Normal 0.3-0.8 [facility] Comment on above: Performed By: #### A 1C #### [facility] [address] [place] [address] Dr. Juan Antonio Ibarra Monocytes/100 WBC (Bld) 6.2 % Normal 1.7-12.0 [facility] Comment on above: Performed By: #### A 1C #### [facility] [address] [place] [address] Dr. Juan Antonio Ibarra NEUT # 9.1 103/ul Critically high 1.4-6.5 [facility] Comment on above: Performed By: #### A 1C #### [facility] [address] [place] [address] Dr. Juan Antonio Ibarra Neutrophils/100 WBC (Bld) 77.7 % Critically high 43.0-75.0 [facility] Comment on above: Performed By: #### A 1C #### [facility] [address] [place] [address] Dr. Juan Antonio Ibarra Platelet mean volume (Bld) [Entitic vol] 9.2 fL Critically low 9.5-13.5 [facility] Comment on above: Performed By: #### A 1C #### [facility] [address] [place] [address] Dr. Juan Antonio Ibarra PLT 143 103/ul Critically low 150-450 [facility] Comment on above: Performed By: #### A 1C #### [facility] [address] [place] [address] Dr. Juan Antonio Ibarra RBC 2.99 106/ul Critically low 4.20-5.40 [facility] Comment on above: Performed By: #### A 1C #### [facility] [address] [place] [address] Dr. Juan Antonio Ibarra WBC 11.7 103/ul Critically high 4.0-11.0 [facility] Comment on above: Performed By: #### A 1C #### [facility] [address] [place] [address] Dr. Juan Antonio Ibarra CBC AUTO DIFFon 07-06-2022 BASO # 0.0 103/ul Normal 0.0-0.1 [facility] Comment on above: Performed By: #### A 1C #### [facility] [address] [place] [address] Dr. Juan Antonio Ibarra Basophils/100 WBC (Bld) 0.3 % Normal 0.2-2.0 [facility] Comment on above: Performed By: #### A 1C #### [facility] [address] [place] [address] Dr. Juan Antonio Ibarra EO # 0.1 103/ul Normal 0.0-0.7 [facility] Comment on above: Performed By: #### A 1C #### [facility] [address] [place] [address] Dr. Juan Antonio Ibarra Eosinophils/100 WBC (Bld) 0.8 % Critically low 0.9-7.0 [facility] Comment on above: Performed By: #### A 1C #### [facility] [address] [place] [address] Dr. Juan Antonio Ibarra Erythrocyte distribution width (RBC) [Ratio] 14.3 % Normal 11.0-15.0 [facility] Comment on above: Performed By: #### A 1C #### [facility] [address] [place] [address] Dr. Juan Antonio Ibarra Hematocrit (Bld) [Volume fraction] 23.0 % Critically low 36.0-48.0 [facility] Comment on above: Performed By: #### A 1C #### [facility] [address] [place] [address] Dr. Juan Antonio Ibarra Hemoglobin (Bld) [Mass/Vol] 7.5 g/dL Critically low 12.0-16.0 [facility] Comment on above: Performed By: #### A 1C #### [facility] [address] [place] [address] Dr. Juan Antonio Ibarra IG # 0.07 10e3/ul Critically high 0.00-0.03 [facility] Comment on above: Performed By: #### A 1C #### [facility] [address] [place] [address] Dr. Juan Antonio Ibarra IG % 0.6 % Critically high 0.0-0.5 [facility] Comment on above: Performed By: #### A 1C #### [facility] [address] [place] [address] Dr. Juan Antonio Ibarra LYMPH # 2.1 103/ul Normal 1.2-3.8 [facility] Comment on above: Performed By: #### A 1C #### [facility] [address] [place] [address] Dr. Juan Antonio Ibarra Lymphocytes/100 WBC (Bld) 18.8 % Critically low 20.5-60.0 [facility] Comment on above: Performed By: #### A 1C #### [facility] [address] [place] [address] Dr. Juan Antonio Ibarra MANUAL DIFF REQ NO Normal [facility] Comment on above: Performed By: #### A 1C #### [facility] [address] [address] [address] Juan Antonio Ibarra MCH (RBC) [Entitic mass] 26.0 pg Critically low 26.7-34.0 [facility] Comment on above: Performed By: #### A 1C #### [facility] [address] [place] [address] Dr. Juan Antonio Ibarra MCHC (RBC) [Mass/Vol] 32.6 g/dL Normal 29.9-35.2 [facility] Comment on above: Performed By: #### A 1C #### [facility] [address] [place] [address] Dr. Juan Antonio Ibarra MCV (RBC) [Entitic vol] 79.9 fL Critically low 81.0-99.0 [facility] Comment on above: Performed By: #### A 1C #### [facility] [address] [place] [address] Dr. Juan Antonio Ibarra MONO # 0.7 103/ul Normal 0.3-0.8 [facility] Comment on above: Performed By: #### A 1C #### [facility] [address] [place] [address] Dr. Juan Antonio Ibarra Monocytes/100 WBC (Bld) 6.6 % Normal 1.7-12.0 [facility] Comment on above: Performed By: #### A 1C #### [facility] [address] [place] [address] Dr. Juan Antonio Ibarra NEUT # 8.2 103/ul Critically high 1.4-6.5 [facility] Comment on above: Performed By: #### A 1C #### [facility] [address] [place] [address] Dr. Juan Antonio Ibarra Neutrophils/100 WBC (Bld) 72.9 % Normal 43.0-75.0 [facility] Comment on above: Performed By: #### A 1C #### [facility] [address] [place] [address] Dr. Juan Antonio Ibarra Platelet mean volume (Bld) [Entitic vol] 9.8 fL Normal 9.5-13.5 [facility] Comment on above: Performed By: #### A 1C #### [facility] [address] [place] [address] Dr. Juan Antonio Ibarra PLT 151 103/ul Normal 150-450 [facility] Comment on above: Performed By: #### A 1C #### [facility] [address] [place] [address] Dr. Juan Antonio Ibarra RBC 2.88 106/ul Critically low 4.20-5.40 [facility] Comment on above: Performed By: #### A 1C #### [facility] [address] [place] [address] Dr. Juan Antonio Ibarra WBC 11.3 103/ul Critically high 4.0-11.0 [facility] Comment on above: Performed By: #### A 1C #### [facility] [address] [place] [address] Dr. Juan Antonio Ibarra CBC AUTO DIFFon 07-05-2022 BASO # 0.0 103/ul Normal 0.0-0.1 [facility] Comment on above: Performed By: #### R PRQ #### [facility] [address] [place] [address] Dr. Juan Antonio Ibarra Basophils/100 WBC (Bld) 0.2 % Normal 0.2-2.0 [facility] Comment on above: Performed By: #### R PRQ #### [facility] [address] [place] [address] Dr. Juan Antonio Ibarra EO # 0.0 103/ul Normal 0.0-0.7 [facility] Comment on above: Performed By: #### R PRQ #### [facility] [address] [place] [address] Dr. Juan Antonio Ibarra Eosinophils/100 WBC (Bld) 0.4 % Critically low 0.9-7.0 [facility] Comment on above: Performed By: #### R PRQ #### [facility] [address] [place] [address] Dr. Juan Antonio Ibarra Erythrocyte distribution width (RBC) [Ratio] 14.2 % Normal 11.0-15.0 [facility] Comment on above: Performed By: #### R PRQ #### [facility] [address] [place] [address] Dr. Juan Antonio Ibarra Hematocrit (Bld) [Volume fraction] 31.0 % Critically low 36.0-48.0 [facility] Comment on above: Performed By: #### R PRQ #### [facility] [address] [place] [address] Dr. Juan Antonio Ibarra Hemoglobin (Bld) [Mass/Vol] 10.1 g/dL Critically low 12.0-16.0 [facility] Comment on above: Performed By: #### R PRQ #### [facility] [address] [place] [address] Dr. Juan Antonio Ibarra IG # 0.10 10e3/ul Critically high 0.00-0.03 [facility] Comment on above: Performed By: #### R PRQ #### [facility] [address] [place] [address] Dr. Juan Antonio Ibarra IG % 1.1 % Critically high 0.0-0.5 [facility] Comment on above: Performed By: #### R PRQ #### [facility] [address] [place] [address] Dr. Juan Antonio Ibarra LYMPH # 1.6 103/ul Normal 1.2-3.8 [facility] Comment on above: Performed By: #### R PRQ #### [facility] [address] [place] [address] Dr. Juan Antonio Ibarra Lymphocytes/100 WBC (Bld) 17.5 % Critically low 20.5-60.0 [facility] Comment on above: Performed By: #### R PRQ #### [facility] [address] [place] [address] Dr. Juan Antonio Ibarra MANUAL DIFF REQ NO Normal [facility] Comment on above: Performed By: #### R PRQ #### [facility] [address] [place] [address] Dr. Juan Antonio Ibarra MCH (RBC) [Entitic mass] 25.8 pg Critically low 26.7-34.0 [facility] Comment on above: Performed By: #### R PRQ #### [facility] [address] [address] [address] Juan Antonio Ibarra MCHC (RBC) [Mass/Vol] 32.6 g/dL Normal 29.9-35.2 [facility] Comment on above: Performed By: #### R PRQ #### [facility] [address] [place] [address] Dr. Juan Antonio Ibarra MCV (RBC) [Entitic vol] 79.3 fL Critically low 81.0-99.0 [facility] Comment on above: Performed By: #### R PRQ #### [facility] [address] [place] [address] Dr. Juan Antonio Ibarra MONO # 0.7 103/ul Normal 0.3-0.8 [facility] Comment on above: Performed By: #### R PRQ #### [facility] [address] [place] [address] Dr. Juan Antonio Ibarra Monocytes/100 WBC (Bld) 8.1 % Normal 1.7-12.0 [facility] Comment on above: Performed By: #### R PRQ #### [facility] [address] [place] [address] Dr. Juan Antonio Ibarra NEUT # 6.7 103/ul Critically high 1.4-6.5 [facility] Comment on above: Performed By: #### R PRQ #### [facility] [address] [place] [address] Dr. Juan Antonio Ibarra Neutrophils/100 WBC (Bld) 72.7 % Normal 43.0-75.0 [facility] Comment on above: Performed By: #### R PRQ #### [facility] [address] [place] [address] Dr. Juan Antonio Ibarra Platelet mean volume (Bld) [Entitic vol] 10.1 fL Normal 9.5-13.5 [facility] Comment on above: Performed By: #### R PRQ #### [facility] [address] [place] [address] Dr. Jua nAntonio Ibarra PLT 202 103/ul Normal 150-450 [facility] Comment on above: Performed By: #### R PRQ #### [facility] [address] [address] [address] Juan Antonio Ibarra RBC 3.91 106/ul Critically low 4.20-5.40 [facility] Comment on above: Performed By: #### R PRQ #### [facility] [address] [place] [address] Dr. Juan Antonio Ibarra WBC 9.2 103/ul Normal 4.0-11.0 [facility] Comment on above: Performed By: #### R PRQ #### [facility] [address] [place] [address] Dr. Juan Antonio Ibarra DRUG SCREEN RAPID (URINE)on 07-05-2022 AMP Negative Normal NEGATIVE [facility] Comment on above: Performed By: #### A 1C #### [facility] [address] [place] [address] Dr. Juan Antonio Ibarra BAR Negative Normal NEGATIVE [facility] Comment on above: Performed By: #### A 1C #### [facility] [address] [place] [address] Dr. Juan Antonio Ibarra BUP Negative Normal NEGATIVE [facility] Comment on above: Performed By: #### A 1C #### [facility] [address] [place] [address] Dr. Juan Antonio Ibarra BZO Negative Normal NEGATIVE [facility] Comment on above: Performed By: #### A 1C #### [facility] [address] [place] [address] Dr. Juan Antonio Ibarra PARAM Negative Normal NEGATIVE [facility] Comment on above: Performed By: #### A 1C #### [facility] [address] [place] [address] Dr. Juan Antonio Ibarra CUT-OFFS SEE BELOW Normal [facility] Comment on above: Result Comment: AMP [...] ng/mL Performed By: #### A 1C #### [facility] [address] [place] [address] Dr. Juan Antonio Ibarra DRUG CUT HEADER DRUG CLASS TEST SYST EM CUT-OFF CONCENTRATIONS ARE FOLLOWS: Normal [facility] Comment on above: Performed By: #### A 1C #### [facility] [address] [place] [address] Dr. Juan Antonio Ibarra mAMP Negative Normal NEGATIVE [facility] Comment on above: Performed By: #### A 1C #### [facility] [address] [place] [address] Dr. Juan Antonio Ibarra MTD Negative Normal NEGATIVE [facility] Comment on above: Performed By: #### A 1C #### [facility] [address] [place] [address] Dr. Juan Antonio Ibarra OPI Negative Normal NEGATIVE [facility] Comment on above: Performed By: #### A 1C #### [facility] [address] [place] [address] Dr. Juan Antonio Ibarra OXY Negative Normal NEGATIVE [facility] Comment on above: Performed By: #### A 1C #### [facility] [address] [place] [address] Dr. Juan Antonio Ibarra PCP Negative Normal NEGATIVE [facility] Comment on above: Performed By: #### A 1C #### [facility] [address] [place] [address] Dr. Juan Antonio Ibarra PPX Negative Normal NEGATIVE [facility] Comment on above: Performed By: #### A 1C #### [facility] [address] [place] [address] Dr. Juan Antonio Ibarra TCA Negative Normal NEGATIVE [facility] Comment on above: Performed By: #### A 1C #### [facility] [address] [place] [address] Dr. Juan Antonio Ibarra THC Negative Normal NEGATIVE [facility] Comment on above: Performed By: #### A 1C #### [facility] [address] [place], [place] [address] Dr. Juan Antonio Ibarra TYPE AND SCREENon 07-05-2022 TYPE AND SCREEN Negative Normal [facility] Comment on above: Performed By: #### T NS #### [facility] [address] [place], [place] [address] Dr. Juan Antonio Ibarra US PREG BIOPHY [...] FELECIA GOLDMAN Date: 2022-06-28 15:29 Normal [facility] US PREG BIOPHY W NON STRESSo [...] by: FELECIA GOLDMAN Date: 2022-06-21 17:20 Normal [facility] US PREG GROWTHon 06-21-2022 US PREG GROWTH [...] GAMALIEL CRUMP Date: 2022-06-21 13:37 Normal [facility] CULTURE URINEon 06-16-2022 CULTURE URINE Culture Observations : LIGHT GROWTH OF MIXED GENITAL ALONSO. NO POTENTIAL PATHOGENS SEEN. Normal [facility] Comment on above: Performed By: #### U RCX #### [facility] [address] [place] [address] Dr. 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 Juan Antonio Ibarra Clarity (U) CLEAR Normal CLEAR [facility] Comment on above: Performed By: #### U MICRO, UACSIND #### [facility] [address] [place] [address] Dr. Juan Antonio Ibarra Color (U) LT. YELLOW Normal YELLOW [facility] Comment on above: Performed By: #### U MICRO, UACSIND #### [facility] [address] [place] [address] Dr. Juan Antonio Ibarra Glucose Ql (U) Negative Normal NEGATIVE [facility] Comment on above: Performed By: #### U MICRO, UACSIND #### [facility] [address] [place] [address] Dr. Juan Antonio Ibarra Hemoglobin Ql (U) Negative Normal NEGATIVE [facility] Comment on above: Performed By: #### U MICRO, UACSIND #### [facility] [address] [place] [address] Dr. Juan Antonio Ibarra Ketones Ql (U) Negative Normal NEGATIVE [facility] Comment on above: Performed By: #### U MICRO, UACSIND #### [facility] [address] [address] [address] Juan Antonio Ibarra LEUKOCYTES MODERATE Abnormal NEGATIVE [facility] Comment on above: Performed By: #### U MICRO, UACSIND #### [facility] [address] [address] [address] Juan Antonio Ibarra Nitrite Ql (U) Negative Normal NEGATIVE [facility] Comment on above: Performed By: #### U MICRO, UACSIND #### [facility] [address] [place] [address] Dr. Juan Antonio Ibarra pH (U) 6.0 [pH] Normal 5-9 [facility] Comment on above: Performed By: #### U MICRO, UACSIND #### [facility] [address] [place] [address] Dr. Juan Antonio Ibarra SPEC GRAVITY 1.020 Normal 1.005-<=1. 025 [facility] Comment on above: Performed By: #### U MICRO, UACSIND #### [facility] [address] [place] [address] Dr. Juan Antonio Ibarra UA PROTEIN Negative Normal NEGATIVE/ TRACE [facility] Comment on above: Performed By: #### U MICRO, UACSIND #### [facility] [address] [address] [address] Juan Antonio Ibarra UR MICRO IND INDICATED Normal [facility] Comment on above: Performed By: #### U MICRO, UACSIND #### [facility] [address] [place] [address] Dr. Juan Antonio Ibarra Urobilinogen Qn (U) 1.0 {Pamela'U}/dL Normal 0.2 - 1. 0 [facility] Comment on above: Performed By: #### U MICRO, UACSIND #### [facility] [address] [place] [address] Dr. Juan Antonio Ibarra URINE MICROSCOPIC ONLYon 12- 31-2022 BACTERIA SMALL Abnormal NONE SEEN [facility] Comment on above: Performed By: #### U MICRO, UACSIND #### [facility] [address] [place] [address] Dr. Juan Antonio Ibarra Bacteria identified Cx Nom (U) INDICATED Normal [facility] Comment on above: Performed By: #### U MICRO, UACSIND #### [facility] [address] [place] [address] Dr. Juan Antonio Ibarra CAST NONE SEEN Normal NONE SEEN [facility] Comment on above: Performed By: #### U MICRO, UACSIND #### [facility] [address] [place] [address] Dr. Juan Antonio Ibarra Crystals LM Nom (Urine sed) NONE SEEN Normal NONE SEEN [facility] Comment on above: Performed By: #### U MICRO, UACSIND #### [facility] [address] [place] [address] Dr. Juan Antonio Ibarra Epithelial cells LM Ql (Urine sed) RARE Normal NONE SEEN /RARE [facility] Comment on above: Performed By: #### U MICRO, UACSIND #### [facility] [address] [place] [address] Dr. Juan Antonio Ibarra MUCOUS NONE SEEN Normal NONE SEEN [facility] Comment on above: Performed By: #### U MICRO, UACSIND #### [facility] [address] [place] [address] Dr. Juan Antonio Ibarra RBC NONE SEEN Abnormal 0-2 [facility] Comment on above: Performed By: #### U MICRO, UACSIND #### [facility] [address] [place] [address] Dr. Juan Antonio Ibarra WBC 2-5 Abnormal NONE SEEN [facility] Comment on above: Performed By: #### U MICRO, UACSIND #### [facility] [address] [place] [address] Dr. Juan Antonio Ibarra GROUP B STREP CULTUREon 05-18 S. agalactiae Ag Ql (Unsp spec) Culture Observations: NEGATIVE FOR GROUP B STREPTOCOCCUS. Normal [facility] Comment on above: Performed By: #### G BSCX #### [facility] [address] [place] [address] Dr. Juan Antonio Ibarra PREG BIOPHY W [...] by: GAMALIEL CRUMP Date: 2022-06-14 16:10 Normal [facility] US PREG BIOPHY W NON STRESSo [...] by: FELECIA GOLDMAN Date: 2022-06-07 16:42 Normal [facility] US PREG BIOPHY W NON STRESSo [...] by: FELECIA GOLDMAN Date: 2022-06-04 17:11 Normal [facility] US PREG BIOPHY W NON STRESS EXAMINATION: [...] by: FELECIA GOLDMAN Date: 2022-06-04 16:23 Normal [facility] US PREG BIOPHY W NON STRESSo [...] by: GAMALIEL CRUMP Date: 2022-05-31 18:39 Normal [facility] US PREG BIOPHY W NON STRESSo [...] by: FELECIA GOLDMAN Date: 2022-05-24 16:34 Normal [facility] US PREG GROWTHon 05-24-2022 US PREG GROWTH [...] FELECIA GOLDMAN Date: 2022-05-24 16:33 Normal [facility] GLUCOSE - 1HRon 04-04-2022 Glucose [Mass/Vol] 101 mg/dL Normal 74-106 [facility] Comment on above: Performed By: #### R PRQ #### [facility] [address] [place] [address] Dr. Juan Antonio Ibarra HEMOGRAM AND PLATELon 2021 Hematocrit (Bld) [Volume fraction] 33.5 % Critically low 36.0-48.0 [facility] Comment on above: Performed By: #### A 1C #### [facility] [address] [place] [address] Dr. Juan Antonio Ibarra Hemoglobin (Bld) [Mass/Vol] 10.7 g/dL Critically low 12.0-16.0 [facility] Comment on above: Performed By: #### A 1C #### [facility] [address] [place] [address] Dr. Juan Antonio Ibarra MCH (RBC) [Entitic mass] 29.3 pg Normal 26.7-34.0 [facility] Comment on above: Performed By: #### A 1C #### [facility] [address] [place] [address] Dr. Juan Antonio Ibarra MCHC (RBC) [Mass/Vol] 31.9 g/dL Normal 29.9-35.2 [facility] Comment on above: Performed By: #### A 1C #### [facility] [address] [place] [address] Dr. Juan Antonio Ibarra MCV (RBC) [Entitic vol] 91.8 fL Normal 81.0-99.0 [facility] Comment on above: Performed By: #### A 1C #### [facility] [address] [place] [address] Dr. Juan Antonio Ibarra PLT 179 103/ul Normal 150-450 [facility] Comment on above: Performed By: #### A 1C #### [facility] [address] [place] [address] Dr. Juan Antonio Ibarra RBC 3.65 106/ul Critically low 4.20-5.40 [facility] Comment on above: Performed By: #### A 1C #### [facility] [address] [place] [address] Dr. Juan Antonio Ibarra WBC 9.9 103/ul Normal 4.0-11.0 [facility] Comment on above: Performed By: #### A 1C #### [facility] [address] [place] [address] Dr. Juan Antonio Ibarra US PREG REEVAL [...] FELECIA GOLDMAN Date: 2022-03-20 20:55 Normal [facility] US PREG ANATOMY SINGLEon US PREG [...] by: FELECIA GOLDMAN Date: 2022-02-22 16:46 Normal [facility] Coding Summaryon 02-14-2022 Coding Summary HTMLBase 64 TwxuaajtNOi2uUb+PGhlYWQ+PE 9MFXYwV34vqYMlpF8HV1fMNO0T YTYEYVAMOO6JGT5dvJL1XKhwP8 VybiAv HslwyTPgPR03EJz0DOU8hCnqPA omiU2cdOMbQ9q8QkUgLI69nP44 HAnxLJTwLrJ6HsBkzubqjNZr O5xrHsZdyJHtZxp+PHRhYmxlIH tsWWUuOHbpDGAwZdMwfOdoLV7r Bh9xFGKxWDJirYwcbRJeNjOt t9cvOUXmAHtoLF1dxKdtC0DqtT D8KNQrt1s0Os22wUK+PHRkIHN0 hDciJJlca691CjTod1jnZMH7 qHPtQGsbFFI2X48ix8Y1BNBqXR QtZTC8tES5dU7psWrlzxkbY6Sn nBNlKhO7EOQ9bAJsvC7lwYxd bdocrI4yHnw+X59CTC3NLIATQL 2QLtg2E2HkMphxgLH+OG95ZUXg JT16bBEfyBDgl8hztAh5QbYj QYGiWFU1nFieTTnof5YsKSEfU3 3wlLRzj8R5UUDpgXobpBJuPpAp zXT7jA6pQVofmmdus3ebzngp Kahei0eerq13nZ40F82pBCjkIJ ZzRNS2LKHdCERjyPadlm6ewZ6m Ii8+LArkq5mbu4ajhKc4NdLd BGWsipDidSdjIXE7e3WnAd68O4 NgzMzex2ZzArz6hs59dCFuv2G2 oFY2ALmlIMSwcT7sRWsxVhU7 ZGKaTiKptN71fBWuPGkfHg4uiR miqQpyDF9cFHTbqfgaZBBqdV0z JOQukHVssAxkHK5tGDQpywpp g817UhCrJIP1MVKsyRYkC1WgcV 6xEtIgJROyCLWqF9JwcCDrVYfp K988BWpoReT6AQJupwEuZ4Ao BNDfsWdwXbR8z3S2Tl7Pm1Dngz jjKSF4KGqvHIX1CyXwOuEeZfD3 K5GbRxp9VCMooHhtJO8fT0Ac TRYolgxjnmkdbUX5NLSfACCxoM 71jBEfJCxxHh2bc1A9z034QJDd LAQhaQ05Eb5dtSmxQGKemWOI uM7sayggf8qapnpvDwBeQMIiNO b5CHw4BCTkcYykUaVrYEG2TuH2 LWA7cEIgtK9vuKjewvdumL9s Oyc+T98roU0cSVV4AJF0kdcbTV DxxsQfEZ72CS16Q5XcAtflyAHb bGU+MLBskeGrzRfkRU3jStQs s4pyi8AsNVkyW6UuKDPfTWouFs q8INUeZZO8wXT7jC4mMIOcCHzr e4Q6lIA2M8LojqTlcv5ct8gw SVBcBZzsW09dpGCuh0U9MCArrF H0SESqxRzfOzSpiU63Lhv+PGNv qHgqd6KqEsmpf6dwg8nfuQi8 TsJgSYQnooDvdGboARS2w6YgQs 85J28yDMaxBIBdFJPoDLXqPCVl zRbwxe9glC4tDs4+PGNvbCB3 fDI5fD2cNPZpMtX8AOkzG518Vo UtkRNpXwjfr8lyh0ranSr0SrPx EPOcxjBjvTmaPSG2p9DnEk15 V32tFXemPKEiKVLbJQXqTUCjfW aiep2iuS6uMm8+NN4be5uxwm55 mC24uII+LBBsHTS9rSudPTkv VDQewM3mLAhsRjJ5RXFxDlFlqH 77cAZhFAryPe1ayXqjtMeqSL4h ZMRblhzyj848NaCti8dlDELk yCJdMAvpZUI5P97bh3H0JNCoZB KsANT5xUJ7rW0ptAgymqycuWNq yMkijmYmyHatOGjiTBxnA471 IHRvcDsnPlBhdGllbnQgTmFtZT c2J3PtWxw2QGBojGubWG8frPGe ERpsZw7dbKfezCroXC1aPVMa erwix670OyUks0jdRKLnoFPkTX qsGVN1Q25nh4C5QDRbGPJcCCS9 rDU2wR4avUjqeobmoAJegDxq lgLwyWvuHZslDVkqQ480VOUuaI jjHbQrkuCtYBWcxHK1YN36OY68 vKBwk0Y6mDS6L8AjAQDtuowk fnrjhYN0AMEiDFKlxQ69Tm3ieN xyYo9dPVDzOBW4XICqpZUrR2Uh mY1jFyKsIXPbKZIkT5LhyLHu BMciN731VCtvEaF2NAKzouOyF9 AbYTKozIscErL1p2A0Bs9GS7H9 VC92NT53eKVdw4M4cVX2D2Tl ISVzevjxycuwuEH3KFItOINmeO 67Sg7rpJpjLj5kLEXgRMZ8GIDf eQOcH8ApdK0oQlZhSLFdFJUf B3MgmYBlZQjxZ491ERpcHjD7SR PquzDrQ7RoEODapCncPkE8f5V1 Ve4XESq0IA15LK77dBLzi3I2 wJQ2G0ZzMNIryssbgchsgIR8EL NyHEQgtC02Kf3qnVvdWh7fTEWs AFH0YYBesOHxK0AkbB2cCyId IROgLWZfB6GdfZZfKXnpM526RG isOcG5SAXxlnVgG1ZjZZWfmIfu KnB6u2F6Nb0RIZFkEA79LNB1 gCC8JM07LH16B2CiYqkxgVLjsT U+PHRhYmxlIHdpZHRoPScxMDAl IrGvdXrhJX0rPu4xPGRaTZUt eScgtYJlWzCnp5fcLSSkTUwjGN 5vdDiaQ3DflBE3VDXln9x0Nj24 P51zM9EnjDB+SBMxaOZ0wNO0 qB0jKiApPyT9VQkxG791UvMaaY GnIdpix9jsb5pplZi2BtN3UFRr ivSgeAbuIYJ8v4OvWr73I89z IHdpZHRoPSIxNSUiIHZhbGlnbj 0gnO8tNp1+PYGwlIF7bDJ9oR5c EdFhTnQ8MHwyP843OlFpsAQg Lfpht4zhe6zdqIv0EqVgGWChnt RusWntZKL1x8WsWv72R6NqrImn q8DeEyp5fi26wNVnt8Z9xAH7 A6QjZPHdpacdlOGnbIwaLP8bOA SbxkexPBKexA8tSJBlG7h3YrAw NfY4KWcbK4WgxqU0FJFzeJWk GVqxDIO8W46cu6M3MGGtIDDjQN F5dAD8uD9jyPgpuibsvVPkhQbf nsYnhFmzCCduEZyaR642LQJh tAozITBceZ8xREOjtHZxuCvyJX 4wNTBpbjsnPlNURUlOLCBWSVJH UQ0NNQQXDJE4Q0CaIbr1ULDl qWalWP4jcLRtMFjsGq3bmOtqpA gqVO5mELYtafreAJDriG3tMLNs nPKwnBkyLD0qKQLkpnzwu750 IjNzSYY6TGBbrKUlS4FjeS7sEy UdITPeVULgD5IscDDlVHjaA875 HGhfQiF6ZXSznkWmN3JaEXIg yJvuUtZ6l4L3Su9mHZ7kIA5iKM isNX35XC89rMXhn6N0sKT5F5Og FIPsxcxokzzaqMP5GTFcYYSk eO44cZAkDIdjEb6ux1Y9g446RV FnLMAmwH89Kz9rtUkiPPDxeYEP eJ4dptowy5gfqjddRvBlJFQq ZYp9UCk8KREwtUnjUqBvUNC2We E0AUT1kNTimB8btKgoviggbV6a Oyc+ZpkuKNEaxeH7Z3IbOwn1 CCMjhScjPY8kcDDrKUmbWx1veD byyPkbXU7jJAVhliqlKUTyuR1p GOEwgADjtKuhVO0tJLXcemui z832HiFpDLA5SXCfcABfO1GuyU 7hTnRmJNQoAGKuW2DfcLNwERts C556KXmhGtA3OEQoyoSkF4Sg VUPgmDvtEsY6b9A0Gm6VDJ2MCJ S4O6VaPbl0HXHxiZczKU7wlXGc BUxfJv0wgIstpJrfDD7aPUHi fxorCXQomY4lBIOmvGZbwGzeIJ 4hTMDneboki876LcAkWJX3TYQg fGNaC4TotK6rFsYcJERmNHPn X8ErePYhKNtxP167QIdmKyI0ZT JjleCuO6NfOCGsyXknRlL0z7H2 Wa6CYShmhTB+JP96kj50Q1Ok GzixDjo4ASFfSRJ7mLU5fT4oFO AeMQckx6C7mAQ0B3CssrChip6v s7yeCXNsDNtkD38maGUlj6S6 EGNlgPP9RIOzgAqwXdPfnY01Wh c+DDSneTwtk4EwEqiia5gzq1ax lLs2OmMnJDVlynUorKurDDD0 e4GjJj19U15jFIzsCFEaGXXdVX PwXQIwlQqhlg0iaD1lJm5+PGNv cVE6iEF2mJ3lRsNmJmV8FTgs B211TuFgiVKgLpywh1oit9tteL d7EbAwQRBcatYleYxqZBS4b3Lc Wk60P4SmrDgtt5HyLsd2do79 qRVup3G7eZQ6F0QwNAAouwiclA IwvAvsTA3zTQHgiodwNBSqeH0a AMYwH9q4JuOdAqI4TVsrR1Wg ezO6BZAdyFMsTJLxmWJTeS8okj oki3pvgabwCuVwPMGjVYy3USe9 UTIidDwbYpRiWSB9KbT8DYY7 zALmaL6ajWzpjvcikV5bBhf+UG q8y9isiKRaTU7trHV7YA11IX97 sWJwk0K3kCO5S0QtHENajkdx krhtaKR8IRJaPYWcuU54Ve3axZ dtJn0uBANzPRQ1JGCqbYPpI1Jj bG8nEhZkKJOfVSMnF6MkeFVv EOxnG753CEmoXwW5ZNSuzeWlS5 BgVBCxxTqeLqU5b6V3Vi1SYG09 VI66PR68mTZow3Z7bHB7T4Zk SOTjxguykxyerSV1MXEmUWYyzK 19Te3mpMajSq8uXVCuYEW7DTSh pAAbS9DaxC0pFiWmTYWeISOc R7GogLCyZPplC845EKpvUqD8KW NaehGeK1BlYPLjnKfgQsC4m4Q8 Qt4LLl46ED60KR77xHCoo6R9 fLZ7B6UrJIDumkhaylsrtXO8XL XmVIUmuO15If3reUfdPa6gAMTj ZVU4BRJbcBLvZ3JvdX0tNnEj OZNjSNFnW4AmmAJmNXxvK049AK bpXdK7VIWmerGwD1YjCBRffXur IuI7b0E1Yr6VYWyhlxa8X6Fa PjwvdHI+CQ21HHNtHP12fQZoxI Cdg2ecrBl9JrMqSWOaPJQ7pGyn OUnuh1QfEZWhF94vqJLrs4Y5 IGN (more content not included)... [facility] Coding Summary HTMLBase 64 QpeuxiptVXd9mGi+PGhlYWQ+PE 2RRNNrD61odDNhnO3KE5gFVZ5K TIVTERGVIY0WND5tjOU1FKjtM6 VybiAv IwcksNOwOP98AZf4TPO9lKzaEV wtnN9agVUeV6r0MiBvJI20eP30 IEqhJNYvWoA7XmRajvydbEVz D6cnVrFwqFOhVzt+PHRhYmxlIH boNAVcGDpfIVLrHiZmwOidYI5l Pq9zYBXwJJEccPqijVNtAaVp k8yoWIMaMCrzYE8fwTpcZ2GmwH G1BFCbq6h8Fo41qCS+PHRkIHN0 hXsrHPoit390KgVbm9skCOL5 rIToNKmwIIG5B51iu2B8OGNmWN VlMUZ0jNX1cI5lzHpbzsujX4Se sSLyXsI9POG9zYAptS6eyEqo iozoeT7lRqm+L39ICU3UDUCKDQ 3QJov0I5CpMjqwoGV+UC44RAFq CO95zLYqiRTjl0ncrMa6GnKl LXKiVEA8zFqcBWrul4BhZJDuK1 9ioJOga0F4FFAosPfvbZRcAuPi pJW4aG4xOVsrxnapf5wjfcyf Tdthq9ondu38wI77E99aJCyzQC MdBFN0INKsTNLsmPyiba1zxX5x Ii8+PUzph0bpq2pelSp7OiJn PQEbmzCelZhmPZD7k6JiNq72S7 VwfDics1BiHxc9vx66kPWjg9C2 eNY7TQivZIFgfT6aXCdsYrT6 OTKoIqFtvH29pOBfDEwlGn9wdK aejFocGX2uNTYqdrbcIIDklU8u VZMpmDJzhHbjEE7fGVHxagjr i769ZxYqWFK6TYXvoNFnB5MpwL 6yKqSrEBFlKJOpV7XefLXnUJgj S599ETlpWpQ3HLVclbPtD3Hi KBKlmQefKpB5b2X7Vd5Px2Ljjq ymTNQ2KBbqBCM8UvUpFyCcDoC9 E0KbIvh3DCUkwXghZL1jI5Jr YNIpwtaanfamuQB7DOFgEPGnoA 85rIMzSVhbXq7oy7C3s795VRRo WNUakN22Hp5mqOdwVRVqjLXW qY9fgyioz0fsvtklCoGvRDHmGJ e4VYn2KMFxgQttFpSnQMZ1DwI4 SHD4eJCjiP6lqXkylatzhX5r Oyc+X49rqK7qWNM8MKQ7azmdGK VaziLfRO20GC28L8WeXcpysHEc bGU+OYHaoyCqkXvjQK2zDjVn p0eti0VtDBjuH1QqFNLuXEkfTj f8ETLwWJD1pUI4uX2cMMNiCDwm y6L7jQV0T4QcjrYehv8mz7vr DYHwWHgmU31wjHSof5N5PMVuxQ J2XWMtdBpqBcTpjU54Qht+PGNv gCilm1CmAacip0wbx3lxoMi4 AxKfAODzqyScbUdbBBW0a5DbFq 85W76nDNpeQBDwAQBmXHQmZTQx cUhdtw5rvI9qRz1+PGNvbCB3 lYQ8wJ9tXWCfRdJ3FGwcZ438Hs ZdmBZoLzfvq5ktu5opmXb7JfRg MWDradUxrBreLPJ1b4GrAk90 E98qZPkyUPXtPUCzVCNdRXNzyR iuqb0uoL8bUo2+IU8wq5twxv43 rP94gPM+XHWjOUY2hWabYHrr JFSojM8gZBkuWtC3ZAOiEnPozK 51lOWsELlrPi6qxOymsTzuYJ8s EHWyruqeu095WlWdk8bbPOMf gKDfOSxzSWP5B32qv5D5YIIiUK YwWAB8pWV3oX7ljAattzrugRAs cEptedPoeFzaWDrdHXemO622 IHRvcDsnPlBhdGllbnQgTmFtZT t4O7JoBon9FECdsWbgJI8esEXe OIwzHe0tmMikjUjvWU9vQOBp grwrz362VpBpx4svNIWqtUFrAR nhJJA9L68yb3T4EYOvEXNhTWU7 oDU8qY3ifUmoxpkmsPQltTys ebLooMgjVTnxYBxlP181NQFnyU pcJfBkipVkVPHtdGQ1JY39VK20 nIWgr9R5iXL0K9JwPXMqvkck dscybXA5UOKeFOBvuP52Dv2nmY fgXv5zECWbOPA5LHKtaIMiL6Jj uU8rFlAwFGFzUSNrX6XgeTSv VPfaS992SFdiIwA0XHRbbxAvS7 CsGFXteSqgTtX9z9B5Cd5UM3W2 JV54JX39zXAlj7X6fXM9O1Py TCEiwdhnzxetzBE1XJPeOLJoxT 17Xg6fdRffHe4wESZaXUP1CIUr pLBxQ3PulO9pTrSeHGDiTVAk X7SkdYVdEUwrP674ZGfpAhN8XK CewxXgL6XuOVSnfElaRjF5r2G1 Tr6NWCm5OP03HP33vSSve5F8 nPA6X5IiWAAxnwkiznimlUZ0AA IrTRAiqP75Le0faIqgQg3vAJTy ARJ5QEFkeEXlL1TyeJ4jGeYi BJUjQQFyB0AwvXUkACzlH738VS viLnZ1PZTowzPnS0KpILRcfDyo NxS9q5Y8Yq1TAYUzFN60TEU3 mVC3DD58IG20E0PuVtjizPYxdT U+PHRhYmxlIHdpZHRoPScxMDAl NrUtwUcqCU8yFm6iUUIqJNOc sXqurKRcNnVjw0bcGCOsDItiHX 1afNymS2OteYT4HUJwj0u0Wn94 R68sW9QltGU+KKBteEQ6fGS0 pC0uReZxNcN5FPhpQ744UxMawP SjKmzxq5obd4xasVr8QmU9CUBo rpFwwBntTJU2u6FnIq41A01k IHdpZHRoPSIxNSUiIHZhbGlnbj 0qbD9gCu2+XUEwoBU4yZS3pL6k QiQgNfM8YVwhU826UhRbdREw Fdelv1wql6hkzKp4EcZuIXDlvh NwxHjiMCO4c3ZhRk33E4MliYhu p3YdWse4ze02kWWij6D2wDO6 R2DmCNSkzbssoZBskCzvYW9sMR HkyqczDYIfcS9rGRJtJ6y0TqNd DmG6KVfbC1HzxwV3DVLkgHCc IJodETE3Z89xa7N5ELZiJFJcWG E5sTO8mE0dlUzgiqrloFZcpVrg frZnyDswAZsuQTkxY094YHNn mMqiLGMjxJ6uPKClsEOyuDwkWU 4wNTBpbjsnPlNURUlOLCBWSVJH CG9GJAMVIYC8A4MgVbr5HEZc hLbxIB2ddFShNCsrGk1rwHgtlB wtPS8sQXQubgprBSVpyW5oTDKk xVCxdGciHK8qOPBdzwrei659 QkOeUBZ8DTShlSRaP0FtyU4nFo RlVYEqHGKeM5AmvCCySErpV047 DFcuJfT5YTKolfUtE2AiJVHh hKwjPxA0t0P9Bq5sEH3hEL3qAQ mzEG21IF13nXWta2O7kSM7Q6Jc LIMwabwddpegdTS5ZXVdXVPj bB20bXEeNXugAu1ng8V8a258WV NpAFNxkW77Xf0jnOgiRAErtUPC bG4nbgoun0adzeejMlYoYSEo XGg8WCk8JGTeuCgsYoChNQE1Ln F2VEX5bKOryE1vxFpidceflO4a Oyc+LebuIDAlcmI5V9QkBqd5 DUWfgVdcVR8nkWOzOHhyQb0xzD gtrAneJQ3jHLYnbjmmYOZndD0f VWKdyFCiwNrsVO3dPVSfhult w189OpFdABB6FBCmmFFfN7TfvM 2jJrQnOZNuMWOhA6HseWDuMIwl W062WOmjVdD7LGOplkUeK7Oy YVWgfIsdXdN4w9J1Ty1GMF5XJC O7P2BkLof4EEGiaDvtBA5qhGSe KIzbRr8ooUkckBltPI7zQZZt yalfMSYicS3pYWBmpDGieDayNL 3qPDNdumlcs131VeIpIVA4RNKm cKHmF1YmdI1rLrZwRNYuYXXx P9XbkVTxLMguT964XOpaUtH3EV InqfApP4OxEUQrjXbjLdZ5j9A8 Kc3QdMFkI0OdA4p1U3KhTyxc dHI+QB63BUThFO92eEBhrLWgg5 ugtVf1FzAyTOWmCDW3lVmxYObc f1RfSBSwS43wrZEbl5C0TBTc pXxhsOHpGuTslLW7hR9tSMwpad jak2aqcncrKjdkw7pood30lB35 D51mXDplZBAnWGRwGWAyJEXh dElpfi1osK5lKa0+WZFgzOL9zE B9lQ0eQhVqPkA8GVovK154NqIs rKBhTncpk4vex0rblOy0OrBy APYeghFumIviVBN0z1VyXa46T5 9sIHdpZHRoPSIyMCUiIHZhbGln jl1jyL0aMj7+XA2mr2qsti62 gG82zRS+DIMtYRS5sOyaEZmhLZ PhqM9mHUdbYbX8IFOrApXfsV38 mWIvKUaaAz1zkNjbkSgwBQ2o ZWTbqjddm832JvLge0auVAZzxH WoVKzdLZQ0F10tr8O4YGGwNXPc HIN6vRD9oO5zwUvhejcqvVCn hZsklqUieEolOHoeOVlnJ720PG NbpRqhWoBffLHzF6mxvxTALZ6b OjwvdGQ+RWHwXED1jAbdBBfq FZYqfS1yINHzZ7d0FtEkUbP3CP zmS3OftwG3ONBioBXiVHLluUFG jX1sajwbv8rgwytxOsXpZTFq BFb6NAd4RAWznBtuKrEjCFC6Mr Y5EPZ4zTRalE9kdGhufdskrA9u Oyc+RklOOjwvdGQ+PHRkIHN0 dRkoNSzwTNTjeX8vECNzT1s0Ph WeSnR3GTftI5BiydR6UJBwjEJj XTGsvFEPjC8gsqzft9jsonvp IoXwUWIpNAr5JBh7JHWjpFwuLh JxIPZ5QrV1ZOW8yFExtF3yeFse dwvpcT5bAhg+TVJOOjwvdGQ+ VPBqTZK0gSalPSblBXBlcL4hDE ZfK4x9RrUlGkJ4ZBplR7WgqqE3 JYZzrZLkOIIxpELHoB1rgtnh m7dwfahfNtDzADTcQWu5AHn9QU OkpNrnDnVcGTX4PpV0GGU5tGDr wA0dhHoeonoqzP3xFqb+UGF5 AQA9JP93BR94Q3GqKzwejZZfzU U+PHRhYmxlIHdpZHRoPScxMDAl PeStgXuaUV2pIu8cTGZuLLHv bGx (more content not included)... Normal [facility] CHLAMYDIA/GONOCOCCUS RAINER ( AB/URINE/PAPon 08-26-2022 Chlamydia trachomatis, RAINER Negative Normal Negative [facility] Comment on above: Performed By: #### R PRQ #### [facility] [address] [address] [address] Juan Antonio Ibarra Neisseria gonorrhoeae, RAINER Negative Normal Negative [facility] Comment on above: Performed By: #### R PRQ #### [facility] [address] [address] [address] Juan Antonio Ibarra AFP MATERNAL FOR SPINA BIFID Aon 02-08-2022 AFP MoM 1.41 Normal [facility] Comment on above: Performed By: #### A FPMAT #### [facility] [address] [address] [address] Juan Antonio Ibarra AFP Value 66.8 ng/mL Normal [facility] Comment on above: Performed By: #### A FPMAT #### [facility] [address] [address] [address] Juan Antonio Ibarra AFP, Serum for Spina Bifida Report Normal [facility] Comment on above: Performed By: #### A FPMAT #### [facility] [address] [address] [address] Juan Antonio Ibarra Comment Comment Normal [facility] Comment on above: Result Comment: Melchor Chaudhary, Ph.D., [facility] Director . References: Available Upon Request. . Multiples Of Median Cutoffs For AFP Elevations Briscoe 2.5 Black 2.8 IDD 2.0 Twins 4.5 Abbreviation Definitions IDD - Insulin Dep Diabetes OSBR - Open Spina Bifida Risk . For further inquiries contact [facility] at [phone]. . This test was developed and its performance characteristics determined by [facility]. It has not been cleared or approved by the Food and Drug Administration. Performed By: #### A FPMAT #### [facility] [address] [address] [address] Juan Antonio Ren Age Collection Date 18.3 weeks Normal [facility] Comment on above: Performed By: #### A FPMAT #### [facility] [address] [address] [address] Juan Antonio Ibarra Gestat, Age Based on LMP Normal [facility] Comment on above: Result Comment: Reca lculations are not recommended when gestational dating by LMP and ultrasound are within 10 days. Performed By: #### A FPMAT #### [facility] [address] [place] [address] Dr. Juan Antonio Ibarra Insulin Dep Diabetes No Normal [facility] Comment on above: Performed By: #### A FPMAT #### [facility] [address] [place] [address] Dr. Juan Antonio Ibarra Interpretation Comment Normal [facility] Comment on above: Result Comment: Inte rpretation: [...] Customer Services to discuss available options. The [employer] recommends amniocentesis be offered to women age 35 and older. Performed By: #### A FPMAT #### [facility] [address] [place] [address] Dr. Juan Antonio Ibarra [age] Normal [facility] Comment on above: Performed By: #### A FPMAT #### [facility] [address] [place] [address] Dr. Juan Antonio Ibarra Multiple Gestation No Normal [facility] Comment on above: Performed By: #### A FPMAT #### [facility] [address] [place] [address] Dr. Juan Antonio Ibarra OSBR Risk 1 IN 3501 Normal [facility] Comment on above: Performed By: #### A FPMAT #### [facility] [address] [place] [address] Dr. Juan Antonio Ibarra PDF . Normal [facility] Comment on above: Performed By: #### A FPMAT #### [facility] [address] [place] [address] Dr. Juan Antonio Ibarra Race Normal [facility] Comment on above: Performed By: #### A FPMAT #### [facility] [address] [address] [address] Juan Antonio Ibarra Test Results: Negative Normal [facility] Comment on above: Performed By: #### A FPMAT #### [facility] [address] [address] [address] Juan Antonio Ibarra VAGINITIS/VAGINOSIS DNA PROB Abdirashid 02-08-2022 Bettye species Negative Normal Negative [facility] Comment on above: Performed By: #### A 1C #### [facility] [address] [address] [address] Juan Antonio Ibarra Gardnerella vaginalis Negative Normal Negative [facility] Comment on above: Performed By: #### A 1C #### [facility] [address] [place] [address] Dr. Juan Antonio Ibarra Trichomonas vaginalis Negative Normal Negative [facility] Comment on above: Performed By: #### A 1C #### [facility] [address] [place] [address] Dr. Juan Antonio Ibarra ABO and Rh group post transf usion reaction Nom (Bld)Ordered By: Eleazar Hess on 02-06-2022 Microscopic observation Gram stain Nom (Unsp spec) [facility] ED Clinical Summaryon 2021 ED Clinical Summary [facility] Emergency Department [address] [place], [place] [id number] ED Clinical Summary PERSON INFORMATION Name: ZULEIKA WYATT Age: 31 Years Sex: FEMALE : 1990 MRN: Acct#: Visit Reason: Rash; Medical problem - minor; POSS BODY INFECTION Arrival: 01/29/2022 20:27:46 Discharge: 01/29/2022 21:17:00 LOS: 000 00:50 Check In: 01/29/2022 20:27:46 Checkout:01/29/2022 21:17:00 Address: [address] [place] [address] [address] [facility] [address] PCP: Andie Stoddard PROVIDER INFORMATION Provider Role Assigned Unassigned Johnson Wright DO ED Provider 01/29/2022 20:29:08 River RN, [facility] ED Nurse 01/29/2022 20:31:57 VITALS INFORMATION Vital [...] follow-up with their family doctor or 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 To this they agreed.. Health Status [...] Use: Current Fr (more content not included)... 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 To this they agreed.. Health Status [...] Once. Impression and Plan Diagnosis Sebaceous cyst ([id number] L72.3, Discharge, Medical) Plan Condition: Unchanged. Disposition: Discharged: time 01/29/2022 20:59:00. Prescriptions: Launch prescripti (more content not included)... Normal [facility] ED Patient Summaryon 022 ED Patient Summary [facility] - Emergency Department [address] [place], [place] [id number] PATIENT DISCHARGE INSTRUCTIONS Patient Information Name: ZULEIKA WYATT Age: 31 Years Date of : 1990 Reason For Visit: Rash; Medical problem - minor; POSS BODY INFECTION Arrival Time: 01/29/2022 20:27:46 Primary Care Physician: Andie Stoddard Attending Physician: Johnson Wright DO Comment: Visit Diagnosis: Diagnoses This Visit Medical problem - minor ([id number]) Rash ([id number]) Sebaceous cyst (L72.3) The Pharmacy at [facility] is open Saturday through Saturday from 9A [...] alcohol and/or drug addiction problems; contact the [facility] 07/01 Crisis Hotline -Text 5NIMH nt [phone]. If you received any narcotics, sedation, or [...] legal documents With: Address: When: Andie Wyatt [address] [place] [address] Business (1) Within 3 to 5 days Comments: home warm compresses clindamycin for antibioitic see your ob, or Dr Wyatt, for recheck apt ----at some point, this might have to be removed; this is not cancer, but a retention cyst of fat material; Return if very red and tender, or fever, vomiting worse You are welcomed to return anytime. Call Dr Wright, ext [phone], if any question patric WRIGHT< ER PHYSICIAN< H B [facility] Medication Information: The exam and treatment you received today in the [facility] Emergency Department were for an urgent problem and are not intended as complete care. It is important for you to follow up with a doctor, nurse practitioner, or physician?s pet care assistant for ongoing care. If your symptoms [...] so we can reach you if necessary. [facility] Emergency Department has provided you with a complete list of medications post discharge. Please inform your automotive service director/provider of your visit and for further instruction [...] Please call or fax results to Dr. rOtiz's office. Refills: 0. multivitamin, ( Multivitamins with [...] Epidermoid Cyst (more content not included)... Normal [facility] TYPE AND SCREENon 12-30-2021 TYPE AND SCREEN Antibody Screen NEGA TIVE Blood Bank Notes performed by CV on 12/26/2021 ABO Rh Typing A Rh Positive Blood Bank Notes performed by CV on 12/26/2021 Normal [facility] Comment on above: Performed By: #### R UBIGG #### [facility] [address] [place] [address] Dr. Juan Antonio Ibarra HEP B SURFACE ANTIGEN SCREEN on 12-28-2021 HBsAg Screen Negative Normal Negative [facility] Comment on above: Performed By: #### H BSANS #### [facility] [address] [place] [address] Dr. Juan Antonio Ibarra HEPATITIS C VIRUS AB W/ REFL EX QUANTon 12-28-2021 HCV AB 0.2 s/co ratio Normal 0.0-0.9 [facility] Comment on above: Performed By: #### A 1C #### [facility] [address] [place] [address] Dr. Juan Antonio Ibarra Interpretation: Comment Normal [facility] Comment on above: Result Comment: Nega tive Not infected with HCV, unless recent infection is suspected or other evidence exists to indicate HCV infection. Performed By: #### A 1C #### [facility] [address] [place] [address] Dr. Juan Antonio Ibarra HIV 1 AND 2 WITH REFLEXon HIV Screen 4th Generation wRfx Non-Reactive Normal Non Reactive [facility] Comment on above: Result Comment: HIV Negative HIV-1/HIV-2 antibodies and HIV-1 p24 antigen were NOT detected. There is no laboratory evidence of HIV infection. Performed By: #### R UBIGG #### [facility] [address] [place] [address] Dr. Juan Antonio Ibarra RPR QUANTon 12-28-2021 Rapid Plasma Reagin, Quant Non-Reactive Normal NonRea<1:1 [facility] Comment on above: Result Comment: Plea se Note: This test does not meet current guidelines for screening and diagnosis of syphilis. This test is intended for following treatment response in patients being treated for syphilis infection. To screen for syphilis infection, a reflex cascade that includes both RPR and a treponema-specific assay should be utilized, such as Treponema pallidum (Syphilis) Screening [place] (445979) or Rapid Plasma Reagin (RPR) Test With Reflex to Quantitative RPR and Confirmatory Treponema pallidum Antibodies (422832). Performed By: #### R PRQ #### [facility] [address] [place] [address] Dr. Juan Antonio Ibarra RUBELLA AB IGGon 12-28-2021 Rubella Antibodies, IgG 3.48 index Normal Immune >0.99 [facility] Comment on above: Result Comment: Non- immune <0.90 Equivocal 0.90 - 0.99 Immune >0.99 Performed By: #### R UBIGG #### [facility] [address] [place] [address] Dr. Juan Antonio Ibarra CBC AUTO DIFFon 12-26-2021 BASO # 0.0 103/ul Normal 0.0-0.1 [facility] Comment on above: Performed By: #### A 1C #### [facility] [address] [place] [address] Dr. Juan Antonio Ibarra Basophils/100 WBC (Bld) 0.3 % Normal 0.2-2.0 [facility] Comment on above: Performed By: #### A 1C #### [facility] [address] [place] [address] Dr. Juan Antonio Ibarra EO # 0.0 103/ul Normal 0.0-0.7 [facility] Comment on above: Performed By: #### A 1C #### [facility] [address] [place] [address] Dr. Juan Antonio Ibarra Eosinophils/100 WBC (Bld) 0.4 % Critically low 0.9-7.0 [facility] Comment on above: Performed By: #### A 1C #### [facility] [address] [place] [address] Dr. Juan Antonio Ibarra Erythrocyte distribution width (RBC) [Ratio] 13.5 % Normal 11.0-15.0 [facility] Comment on above: Performed By: #### A 1C #### [facility] [address] [place] [address] Dr. Juan Antonio Ibarra Hematocrit (Bld) [Volume fraction] 38.9 % Normal 36.0-48.0 [facility] Comment on above: Performed By: #### A 1C #### [facility] [address] [place] [address] Dr. Juan Antonio Ibarra Hemoglobin (Bld) [Mass/Vol] 12.9 g/dL Normal 12.0-16.0 [facility] Comment on above: Performed By: #### A 1C #### [facility] [address] [place] [address] Dr. Juan Antonio Ibarra IG # 0.03 10e3/ul Normal 0.00-0.03 [facility] Comment on above: Performed By: #### A 1C #### [facility] [address] [place] [address] Dr. Juan Antonio Ibarra IG % 0.3 % Normal 0.0-0.5 [facility] Comment on above: Performed By: #### A 1C #### [facility] [address] [place] [address] Dr. Juan Antonio Ibarra LYMPH # 1.4 103/ul Normal 1.2-3.8 [facility] Comment on above: Performed By: #### A 1C #### [facility] [address] [place] [address] Dr. Juan Antonio Ibarra Lymphocytes/100 WBC (Bld) 14.5 % Critically low 20.5-60.0 [facility] Comment on above: Performed By: #### A 1C #### [facility] [address] [place] [address] Dr. Juan Antonio Ibarra MANUAL DIFF REQ NO Normal [facility] Comment on above: Performed By: #### A 1C #### [facility] [address] [place] [address] Dr. Juan Antonio Ibarra MCH (RBC) [Entitic mass] 29.6 pg Normal 26.7-34.0 [facility] Comment on above: Performed By: #### A 1C #### [facility] [address] [place] [address] Dr. Juan Antonio Ibarra MCHC (RBC) [Mass/Vol] 33.2 g/dL Normal 29.9-35.2 [facility] Comment on above: Performed By: #### A 1C #### [facility] [address] [place] [address] Dr. Juan Antonio Ibarra MCV (RBC) [Entitic vol] 89.2 fL Normal 81.0-99.0 [facility] Comment on above: Performed By: #### A 1C #### [facility] [address] [place] [address] Dr. Juan Antonio Ibarra MONO # 0.5 103/ul Normal 0.3-0.8 [facility] Comment on above: Performed By: #### A 1C #### [facility] [address] [place] [address] Dr. Juan Antonio Ibarra Monocytes/100 WBC (Bld) 4.6 % Normal 1.7-12.0 [facility] Comment on above: Performed By: #### A 1C #### [facility] [address] [place] [address] Dr. Juan Antonio Ibarra NEUT # 7.7 103/ul Critically high 1.4-6.5 [facility] Comment on above: Performed By: #### A 1C #### [facility] [address] [address] [address] Juan Antonio Ibarra Neutrophils/100 WBC (Bld) 79.9 % Critically high 43.0-75.0 [facility] Comment on above: Performed By: #### A 1C #### [facility] [address] [address] [address] Juan Antonio Ibarra Platelet mean volume (Bld) [Entitic vol] 10.0 fL Normal 9.5-13.5 [facility] Comment on above: Performed By: #### A 1C #### [facility] [address] [place] [address] Dr. Juan Antonio Ibarra PLT 194 103/ul Normal 150-450 [facility] Comment on above: Performed By: #### A 1C #### [facility] [address] [place] [address] Dr. Juan Antonio Ibarra RBC 4.36 106/ul Normal 4.20-5.40 [facility] Comment on above: Performed By: #### A 1C #### [facility] [address] [place] [address] Dr. Juan Antonio Ibarra WBC 9.7 103/ul Normal 4.0-11.0 [facility] Comment on above: Performed By: #### A 1C #### [facility] [address] [place] [address] Dr. Juan Antonio Ibarra CULTURE URINEon 12-26-2021 CULTURE URINE Culture Observations : LIGHT GROWTH OF MIXED GENITAL ALONSO. NO POTENTIAL PATHOGENS SEEN. Normal [facility] Comment on above: Performed By: #### R UBIGG #### [facility] [address] [place] [address] Dr. Juan Antonio Ibarra GLYCOHEMOGLOBIN A1Con 2021 ADA RECOMMENDATION SEE BELOW Normal [facility] Comment on above: Result Comment: ADA RECOMMENDED LIMIT 4.0 - 6.0 ADA THERAPEUTIC TARGET < 7.0 ACTION SUGGESTED > 7.0 Performed By: #### A 1C #### [facility] [address] [place] [address] Dr. Juan Antonio Ibarra Glucose [Mass/Vol] 114 mg/dL Normal [facility] Comment on above: Performed By: #### A 1C #### [facility] [address] [place], [place] [address] Dr. Juan Antonio Ibarra HbA1c (Bld) [Mass fraction] 5.6 % Normal 4.5-6.2 [facility] Comment on above: Performed By: #### A 1C #### [facility] [address] [place], [place] [address] Dr. Juan Antonio Ibarra US PREG TVon [...] FELECIA GOLDMAN Date: 2021-12-07 16:59 Normal [facility] Coding Summaryon 11-21-2021 Coding Summary HTMLBase 64 TnsvwjmgLMb0oMs+PGhlYWQ+PE 4DBUHcZ74elUPdlK8DE7gNGW6K AVRTBSVCKC2HJP3okCE2YZoaZ6 VybiAv PhsmwQGnYN49RCz6JHW6cGuqQF oszG9tlHBmO6y5VjWvMV40tI80 FAysLWSiUrG8JtIljnsmvABs E1doWoTndHEwMhn+PHRhYmxlIH mbQFTcJSblZUDwNpUbfKjaKA5i Iy1kQQCnHTChjUkktGOeWzDv n7mhBHExNGyuVX2xgEdhX1MnpC Y1BLCsj5m7Mq77gJM+PHRkIHN0 xHezZYhrg938PxGcj8jlWVH0 jFYkGXoyVDX5H74bg2L4LTBgQQ LyDPL1aIX7rW5bfDbtnxxpO3Td vZKlNsG9JCK8vIQdhB9pvHqw pexqpQ3fHmz+H88XNZ8XGTULGC 1UCjc6D2IvPweowPQ+HO08NKPe WY89aJAjyDJww0lpnJs7PmSt KVRfRDR5mVuoLOohu2VjIQKyH2 7huZMma6U9NHBleRauoHKzKgGg iMZ5vJ6uVAcatrbun7tjzusy Iwrig7zvql59kR88F16dBWytQD VgGYJ3GUVfZOBwvQtmoj7qqW1h Ii8+FXspn4hdy9evpSb9SiHk CDQvoyRjxHoeQFV6f9WeJj36L2 ZgvVoyy2CkYpl0tn80zBJif3S2 jPH5FNqlRBFsbG2uGAcsIqA6 OPAzHvAiyV90rFMgFUtvZu1qyE clpGozLH8gIPHpsjxtLZHqoZ3j HHKddKGzqAhpXX8qESQmryvq p373SiBxMIX7UQUtfNLxC1SsxL 4xVvZxIHAoAVQiZ7WigKWnESjs H122KCwdAhX5STShtyUsS5Oq AAVsxQbxTaI0m8S0Au4Hd1Zmcj xoHPS6KGuxFYR4XdE5IeYcFwT4 E0KaFgo5OKAuuFkrBO1bD4Qh CTUjxvnflwlsiIZ2SXVlMKFvwW 24rQNnXSpnOj2pc0R6g706MEPy FAZilS84Uv8tpAoaTXTefGDB nQ2gnyskd2wevgltLlQsQFSvOR w5ELl2OKPqfIjlVkDiHXW5UaP0 VXO2vOZujE2jkAisogsmiE5h Oyc+F97wcD8nEOZ6WMQ2pedkXN RjgfQbXQ83YQ18V5HzEbqgpOXk bGU+XWCutzUjkDgxQO0lIhQr e7caw6YwXEipV3CxPSPvPCfgHy x2IEXsGYF0tVZ5zT0iHWSbYXrb p1Q9hAJ9C7YfamGqme4nd4jq GGIxBVbnH41eqNDra4R1VNGpoQ H0OOLhmSdjDjJxsI51Lyd+PGNv hWebz1RjKeqib0rru9lyiZt9 NwXgZEXjuhGfwGldPMB8h0IbFg 62N16gVAamIIXkGMAvXDDoEWKc eGtafd7tuZ1oIx5+PGNvbCB3 sCA3lX2sVWZuQvE3UDpvY265Cg NlqUGtDwqqs4eda8zgyMd8NhLh NYBcofBybTapLGX5l8LtAf46 R76eGYavTIBhPNEpBTGjANTipF hpgg3taC5zSo7+TB6of4cakc56 pI39vRY+SQReZDD4sEouTRgh NNSefK6lSCipBhQ3ZUNsYfHxfU 19rBLiDTdrDo7ljVyyuFchJN3n JTJskepdr905DsIbw1nrEZXo sFFmITlgSSS8F97db5G2BYJpUN FjRFD2cNL4aK7huGgreivjpSZr zXflstRudRhlSMphWFurC005 IHRvcDsnPlBhdGllbnQgTmFtZT y1N9NbVoz3KOUvlQvlLY2iuWYu JHagZm2puVqerHvjBN5xCOVh aprxn831HnHta1ujJYPmuLJyGD cyYEZ5P38cb0M0BVDnNJGzFQH7 kHJ4fB2cgTqtbjpxwTUpoGak hbJxhPzgQPlvCLeeO273ONXgeL xkLvShjrSpEUXgrDN5IK92SB81 yHAib8W9bBB3Y7SxAOQtfccz jobdcIM2VKSzVVNkyC62Fn9jyV xdPw5rDIUrVKD4YUHlqMUqB9Hs rS8fDnPeYPKbYKAlB4PyeOXy TGyjV555RUybDxE1GSLejiWjX9 OzYJUckNeiAoD0d6R4Vz4WP8T2 IA41WB03cOXvq1L6aHC5Z6Cm JGBkxlmljemhpAR6ALLsUBHfcD 86St9rbWdgCv4sDAHvIIO6LNFu iMBoE9KhzB3sJsZiHFFoSWIg P9AerPNbUGgcJ779SBchTdO4TY KcwxHeE6DyVRTrnOqgNqB4p8O9 Im4OJDs5DW55LJ95pCIkt7Y4 wSR4Q0RdYINksaoaenvpiQD1EC InDSLghU25Md6adHdsSo7aIRWa DGW8OJDtcURqR8EkdT3pJqIn UPBjQLRvW5MvoJGxFDilK608AM iuSjQ3XRKmfyIuH0JiSWRbiCne DzO8d4X5Hg7OLCHuAS70TQB6 cBZ8YK35EE71Q8PuBzexhLHgjH U+PHRhYmxlIHdpZHRoPScxMDAl DlPyrRpsQT4iUh1wGTDwTPGv iKvahYQyBcFel5btSGIyNVsuZQ 4kcGigE0CuiKK7IWNfj6c3Bp85 D27cW5WfySH+FVXitXT4fCV0 bE1oMuNnIzJ2HXzaZ103OmUnqU UiUlzir6udi5aaqVx7SiW2NJDe lxUyjVrsYAS8u1YaFg50U30a IHdpZHRoPSIxNSUiIHZhbGlnbj 7kqL6kGn4+SXJjdXP2uYK3uD6j UjXgMvU4DQwyH708VfAruSWt Pyrgl2gre4sxlQh4QnTtWYDjcc CseIvcMAX6k0OkFo17M6OpwGly z0VfSdt1eb83bBOom9W3aDB6 Q6MfIQZtndfiaSIdnIljJA3eCM SotbsaQHUtrQ9kGUIiE1j1JcUl EhI7PKojA7AireO3LFPegERx TAquJJI3Q37qp8O7HLAgRSDaTK K7bHQ8nH2rkRyphakynWOioVel gdGstDrlAIcoXIcxY542EYLj xLlpNRWgxW7fBKOqhTUwyWlwNU 4wNTBpbjsnPlNURUlOLCBWSVJH YS8TORSIZTE2I9GrSmp2INZx hPsrJJ1lcZTzSEfoAn1moDrfvH aoUD2qNLByunytXJCasK5qRHOh qNRsjEzpYS7sFDEovsncz782 JnWvQIQ5QYRhaGFbS6RlmG6nUc TxGNSqGGSoH7BxoNBaRZsfS147 ICulXpP7OWYdodWkP3EhRBNe lZgiEzZ2v9D6Sw5uPN0oVM0hMH qpUT88OS54kQOpq7A6aMD9C1Uk BPHwvtsnchtmkZN3AZGuKOHy wN68eMJiQEbeFy5mz2T0p771SR HbPYDudL20Wy3esRptTNQwwNXD qS3yxmrju9tudleeMbNwNXFq WKr0PIb0UXNdrQfbWkHmQIY8Om S3DGO3lXIirS4vxJudvnkhoN9d Oyc+GgdxPINepuS6J7ZoFnk0 AQLxcDqsCY9zbFCfCNglZo7xlK zexChlRB3pQGKutoegUEPhkR2z CLGttFTxwChxDI6fYUDuysmz r158QlIyDKD2JQPwqIOzX9QgwS 9rHlUcDSKjNIVyH9EhlHPyCUpc V308KBudFnH6TXThhgFbD6Vx IEJlhEuaJsL5n7M5Ge8EKB6URR W8X5TwWuq0ZOZhbSrbSJ1vyFLp ADavMd2cgPwkiXllGZ4jXIVv cqqtYGFxeQ2iFNRjgTCnsGgcVQ 8vNPLysuxnr719KcLdOHJ9ESGn yRZdR2DkpL3yUsXgFFSrUCEa E2YtcNMcGGkvR945QAqePuD0UQ VcfoSlC7OiELDimOznGmG9p4K2 Pc6FMFbssWR+OD26zy17T8Wk UqnrOin4GMShGFK4mJI8cF9zUU ViOJkmb3K6nJY7F2XkooDvge9t b3cxZJFuJSfjL49jbSRfo3U9 HYJohRN3LLUapKjiOvOmeN27Xi c+SDBprJwzx8PkBorxq3kri5zd xIj6LcAiMPUgsmFtuZldVVX9 r0FsKs37V81vNOvoFRCdDJIgMC PiAQSbiBbvdj9qtA8wLa5+PGNv gJR7pKO9rT4iSqIrZbC7EWnu O485YrOeqFElYlzbd5bzg0wwoC p9HzMvVIDqpdDfeNvtSJB0v1Id Rh24L0SetYrpp7FqXvj9yh47 jGRpk9Q4cQV8P9SkNLTxjtggrL KnwFfoLG2tDAMejuoiICRvqB0q GLLpO9g1VpTmCtD0PVpaG1En hhB3PQMflUOnQOVkxDUViO9gjl umm8cckiptTnKaPBQqGMq0LIb0 KDQhhDgqAwXfWNM8LdG2UNX5 eZCuxE8aiHfdqplbkC3uEdg+UG s5a6wywWDdBA7suUF0WD43NN98 fZGnt5S0gFH8V8LvFACckctu iwzhaWG9SXJyLHKdfR58Dy9qbE fhDv5wIHWzEGE9ERXfrNVgC3Rf qD3wLeYfSZYjRDEsJ2HjjSMz RUnsL927QNvuTrZ9VHOjqrZmI1 RyEGCesWicQwZ8p0G7Sf4PIW21 FR01QG88sNOsl6N4iGQ9R7Kt RCDhkqmmvuxjrUF2MDNxWXVpsM 32Xi6loCkmUw1pPHFqWPU1KFLh mOLgC9LvjP5sNsQbFJGnMKRj B6QkfCDfPIoaS066STdlBdI4RR VuxoDsH0SvAFMowUusJhF2i2W4 Uh8NXc87FE08VA79iXKhm5M7 rII3B6YwRPEuinaiasmtyYR9QQ EeKSMapP57Rn4wcBorQy1qMPXu QFT8VGReaFIwD7PwwH4jAyHb VUJoQJPbE2MffEUjXRitH231VS neNmI7YZFlwsXlQ4OdNLIahLvj IrE7y5E9Dy5LSSldygs1P2Ui PjwvdHI+QE43IFMvBT02fGVtlK Hmd5emyPd2RrVvXJYnNTV7pHhm QYchk2RvBTLdO57wzCHfi3T1 IGN (more content not included)... [facility] Coding Summary HTMLBase 64 FthxlmbcHQe8lQx+PGhlYWQ+PE 5OPXLoI88ifTMkrT6DK5pLFR6K VOTZXRKLJA3REF8fuNR9QOxnX4 VybiAv TkmpqMQeLP29TFk6WCM5dNhyXB iyvH8wuDBeI2f4QgOzVK05jI15 EYavUCIvGgZ7JxDxadeizLGy W3xfOiQulWOvLnj+PHRhYmxlIH mvGEHuRLsfOSDxZfYyfTveSN1t Ad6gUNDhPEJhhCubsDMhTxXs d1jlYGFwNRknGQ9nwQzyJ4FxaG V4ZYShx0u0Oz32xQU+PHRkIHN0 rVizOCsyv184BmEwg1kuMPA5 xXGmMEvyICS8A21fx0Y8OGCpFZ KtMRY9dXY0cA7slVucsguvJ6Ht qAIhNeM4YJI7cRYtdI7ecTvv pvulrP8tVjd+Z22BNP4DWCJBKA 2BNrd3B3VhEcldsOQ+PQ97STBg EO86fOGidHVas8fiqEr3CwSd RCCsZBU0zHwlDTdgt2HkBTCwY3 6joUOcz9K4THJvtOdvqOFxLgKa tVZ4cK1gJYokjxnwy3flctrb Rrsic2jknh49iH68M79pVEuvBY WfYXU3GFAmPBGxdQdaov5iqE8m Ii8+ZBgpb7tpr1hxgVw6VdVo VJSmfhYtdTblPWR1n2YbUr39V9 QoxCfnj3RmXuo6ri72lJDsj6W2 oNQ2ULhiHNRtvC9uWYaxXlF8 SGDwViOfdU51pGNxIFphPg1seU izkVsjEX2bVIMyhvypYGGrgA7c GDLytWQbuSasJZ5aQENxfoar p977WxIiBSY1DDGguWKoD8JucF 5vQeOzNKGqUWLxU6NnpSFoQOrp E733XErnUlG0ELGyzuHhY2Jz CEJgkRfoMsR6z9T9Fq7Iz9Coyo arLKM8CUvtESL6HoB4YsGtAaW9 E2WlNkr5XFMsvBugSH3hY7Fr QEMpqzcnvugldDY2RDYyTMWumM 50iPRlVQecRb3fy3E6x822HLZq BWNebJ66Dy2epEnxAOJjvMYD xD2evruzn6tnfbhfGxPiUICeEZ a4LQp8HHMbiFtgSyLqKBI4SxH2 SPY5mEEiwU3ypBilmuguzE8s Oyc+B26xfC3rTQR9DWM2xdkhJT JeaoFwOT12ZI81G9FeQvgvmIAu bGU+GKVgvoUflFdkSY4eItQe x6vuh3SmDKixH2PzPEXnYPujLr c8LXUbGVD0tIT2mN1oARPpYDga a7R8rLG4D7JoanBdpj4pg2qe BZNwDRrfF23snOByb9M7XDBnfS S9NYKphFlmSeRueU47Ryo+PGNv jWnkz3RrWkcbm7oot0txyGy3 IlLfHGGefqBlhIzkOTY5w7SeAs 33K00iVYmcVZQfRLEcQDKjKGKp zRmsjr6xqQ7cKg6+PGNvbCB3 sEZ7oL4cFIDlPeS5HPkfC226Cb IftNYxDzimz0qub5jboOx5YqGq WTZgthGofXsqDBF7e5McOe98 Z09fGFrfTIVrRHQnHWTlYTPemS lbhx5ehW9jGq8+DG9ff1hysk86 eY03oAX+GDTjBIV0uQtkGBri URNkpF0fXVckVjH2FTCiImNbvC 80iWPqGRcgFx9kyXrulFmcHU6p ISAudmlls654IsTpi0hkPHTf kLHxLGakXRQ2E03ta1M6REUaHY HgWNF0nZV5gJ0qjNnlfodeyOVi kCqudbXhqUovJGobFVaqB675 IHRvcDsnPlBhdGllbnQgTmFtZT j4K5ZqIko2OFGhvDlqMY9gqTMr IWdbGm8orAifcGibCA0aLNQf kznhh115VyEuu7wtRORmzURrCY flQFA2V97kr4F1BIBtJWTvJSP8 zGG1kL5ddYypicrbzDLbjZky aaDgaHyuMFyxMBsjA389FFMvsN elYlHummMiALJxoGK4XU63WV50 nXLaq5M5cIE1K4KpBCIiokww tbqxgHS4NTKlGTBdyF92Ey4syD oyRf5mKDCzQPS9UYOmjOWrI0Dw lZ5bKrWgYBNvNZKeJ2LwlXVf HJfmW385LPfiLpI7SIIyoqDqO4 BcXDQsiPxwSbQ4z7O8Oe8CY6B6 IU88VE59dYRkj7C9pYP6T7Bp SPBtpydohsozmCT5CTUnGQJilM 94Xc2eqNtkDg6cNQLaHSH9FRWt oBVoC1DxgR0aBhKdKTTyQHEe R8WkfJNfGCywF553ZIjkYjK2WM DsmhPuG3HdKINnqVtaGfD1s2A6 Jx8VVYm4AV70US77uAJqy8H9 sLO2X8NaGEObjckfccgehTX2TY QhHOPnpC59Bf0caRltRp1sUWHv QHY4ZYQibNRkX1DsjV3aKlRe PXUxEIWxQ1DosCYjMDowC231NU pdTcK0MIWlfmTfC0DgRAGlaKip LvW9m2Q5Ff0HMYKzXW54SDY2 rSI8LN23ZD42L1AcFijcuJEzhL U+PHRhYmxlIHdpZHRoPScxMDAl TwAbbXieFD0dOn2mZFMtFCCf sCjtyFRjJdCcv6ngIPZwAXxcWI 2qwAwbT3DohEL3BABnd5k1Gs75 E42zG2OzsZQ+QKXrjAY2sSI6 mW7aMoCuTwT3SZcyH871GuScvP JeVscqv3jew6hnaQo0UhU9EHQx zbLieYmtGYG2f6KyYa33Q80g IHdpZHRoPSIxNSUiIHZhbGlnbj 3bhS2rRz0+NTQjqKW5uLL0kQ4s OfLfJnR2UTjcM116YdCauYYr Grtyn0uwf9sexEo7FaCqOBLxgu ZhbCprCWQ8z0AqFi22J7UfhLym n8WpRar9qd13cRTxq7E8wLY8 D2UiTTNnnzkcaJHsfZcrRY6eUX LdtskkBPMlgB9pDKIbS7p3VnEb CmP5KBqiP9KpviT2XNLhcIDl AZlaVWV6G80bv4Z9PAWsMFLzDZ F3mWZ6nE3yyNqzcpzpzZClyFpr yaUarPfnZZeoIYedQ886YIJk rDgqHCAsiD5wPOChrANydFukMI 4wNTBpbjsnPlNURUlOLCBWSVJH KV0OWOZCCBF2U9WhCjy3IXNf mZaxUU1pcTViDZfjAh3wkJtwiQ kvBN9cTMDajeyzKEUhaJ3aFHHg yPZvxUozZT0pHVHwieiky681 GwQqYXE3SVBaqVLiA7IseZ3eKp AnDDKeYLTzW3LvgNHkMReyB781 ZSorDaI0XKUmpxLuW1OjOQYq zPxzWxQ7e2K3Kb8zEW7dGQ2gFL gvJK74YF54yTBtq2G8bZX8H3Jx JPOzmduqfqpzwGF3CQUvFROb eE39uTKtUFyqMa3rm8K7v772OY LjLSZtqX71Vz1vbDgiKZEpkUNF bL2rfwhet8mksodbRyZqSUYb YJu7GPy9SJTlkRxgRnPxOXW3Yd T6DVZ9aOYdcO4bsVkbotadpE2a Oyc+KfbrTUGrzeJ4W3XuZam3 IDFnhMseMV3udYJvRNxiPh2dmX ziuNfxMN1hFMDuucuvHHUsjG1s YXHvrRJfxEdgRB0nWFZgbehe g641QtHfJWJ4BOTvtWUqS4DshN 9qOaHhSYZbUKCvA3GxePPlBJnz D287EDupPyJ2UXDlfnKaT5Wr JHKqyUurDbS8l8E8Uj8EJE8ELD F3L7FsCiy6YEYakQvvLY9thRKl HPfkYs1kwJunfIuqKC8mJXHc shfqDGQdqW5sLUQbtRCfhPsdIV 1yJZWtbcjaj140DvTmSUH4LDPr nWXkY0UvuY7jSbBbSENqOZJf P2YmdSRbKLcxV051PYxpTdG8XY XymfZeO0QiAVDrtAizOiO2d8W8 Kc0ZaTWvZ0ZkZ3z1S7ByKgnv dHI+EC87LDPxWW45dQTgdXStb7 ylqEu5YqMmYVIuTPH7kVpaLWqd m5ToYCQtO32wrRMbt1S1MVWp rGsanHYtUhHmtJQ2gT6vQWbecp ohr6mvkiaoJxhry1pyad22wX29 F65oTViuXEGvXEXgXLVvAYJz qMxnbd5ddL1uXu8+RYDsnNI6mX G2uU0xZsYbOyD8ELeeC822UdFp qJBhLmtxa0ooa0efwMr3QsHi DXKdjxZbdQuzOTY7y0RyMs36L1 9sIHdpZHRoPSIyMCUiIHZhbGln ej1waJ6pZs1+KZ5sv6dadt93 cF78hQC+AWAdSQG6eJunRAzaRE IisY2tWQzmUhD9GSGjOwKvmY12 gCRjPDxhNs3pjEvpuAybRY1d TGVpsjavc425DaBgx4mdRWZtnZ VxXIbcLXC4M15nx8E4EZIwMKWr KKS8rRW7mD5iiCelihzfqIDe qBqhhkPlcNfxRWavYLuaU990UZ VxhMmiQzPwvPCfY1cedzRYIJ5g OjwvdGQ+VAPhYJV7jOawLGuj XBAacB8pDEZgO0r8CjFlZyW8KL jlF7ZrrbE3LQYdkNNhKYThhXWX pS9sorbzk4mudomvBnHtYCWh GXd5ENf9FAXuaVdsAtIbXRI1Co W3EHB6nTIhyK9wzYrftqearL1m Oyc+RklOOjwvdGQ+PHRkIHN0 tRooAFlhFHSmaN9oRSHyO8l3Eb VnIxZ3DLfoZ9HdltS0JRCahZBn LEBuaOUZpP8nrapkm8tnpzmv EuPbVTXtBLd8FVq9XIKndSllDb ZeXNG9CqD6LBO0zOIrtX0lmRsx jolbrF2kMgl+TVJOOjwvdGQ+ CSBlRFX7fKmqKQtgKZJobN4tWU UpV4j4LvVjWoP8NSryP3NdnuY9 YFNshMSsNEWfwUUQjL9rnhoy p4ulbizhBdSaIBWiGSf2IBk4HU HnpVphTwNxCMS7FkW2ZDV3dUVp dX4lqQwhwdugfH8jIym+UGF5 PKZ6LG23UI50F6KzIdolxXXuhM U+PHRhYmxlIHdpZHRoPScxMDAl GvOzlIffHZ2oIq6zBYWvFGZt bGx (more content not included)... Normal [facility] ED Clinical Summaryon 2021 ED Clinical Summary [facility] - Emergency Department [address] [place], [place] [id number] ED Clinical Summary PERSON INFORMATION Name: ZULEIKA WYATT Age: 31 Years Sex: FEMALE : 1990 MRN: Acct#: Visit Reason: Rib/trunk pain-swelling; ABD PAIN Arrival: 11/13/2021 16:30:24 Discharge: 11/13/2021 18:01:00 LOS: 000 01:31 Check In: 11/13/2021 16:30:24 Checkout:11/13/2021 18:01:00 Address: [address] [place] [address] [address] [facility] [address] PCP: Andie Stoddard PROVIDER INFORMATION Provider Role [...] Follow-Up: With: Address: When: CUONG ORTIZ [address] [id number] Within 1 to 2 days Comments: Diagnosis [...] results be sent to Dr. Ortiz, your BAG MAKING MACHINE OPERATOR physician. She will contact his office tomorrow [...] Patient/family/caregiver verbalizes understanding of instructions given Comment: [facility] ED Note-Nursingon 11-13-2021 ED Note-Nursing pt [...] 6 with steady gait and no assistance. [facility] ED Patient Summaryon 022 ED Patient Summary [facility] - Emergency Department [address] [place], [place] [id number] PATIENT DISCHARGE INSTRUCTIONS Patient Information Name: ZULEIKA WYATT Age: 31 Years Date of : 1990 Reason For Visit: Rib/trunk pain-swelling; ABD PAIN Arrival Time: 11/13/2021 16:30:24 Primary Care Physician: Andie Stoddard Attending Physician: Gamaliel Wyman MD Comment: Visit Diagnosis: Diagnoses This Visit Elevated blood pressure reading (R03.0) History of abdominal pain (Z87.898) at early stage (Z34.90) Rib/trunk pain-swelling ([id number]) Prescription Information: If you have been given a prescription for narcotics, seek immediate medical attention if you have any difficulty breathing or any sudden status changes such as confusion and sleepiness. If you or anyone you know is experiencing suicidal thoughts, mental health, alcohol and/or drug addiction problems; contact the [facility] 07/01 Crisis Hotline -Text 4HOPE cc [phone]. If you received any narcotics, sedation, or [...] sign any legal documents With: Address: When: CUONG ORTIZ [address] [place] [address] Within 1 to 2 days Comments: Diagnosis [...] results be sent to Dr. Ortiz, your BAG MAKING MACHINE OPERATOR physician. She will contact his office tomorrow [...] and treatment you received today in the [facility] Emergency Department were for an urgent problem and are not intended as complete care. It is important for you to follow up with a doctor, nurse practitioner, or physician?s pet care assistant for ongoing care. If your symptoms [...] so we can reach you if necessary. [facility] Emergency Department has provided you with a complete list of medications post discharge. Please inform your automotive service director/provider of your visit and for further instruction [...] Temporal: 3 (more content not included)... Normal [facility] hCG Quantitativeon 2 hCG Quantitative 19578.0 mIU/mL High 0.0-0.6 [facility] Comment on above: Order Comment: Lucy whitney call or fax results to Dr. Ortiz's office Result Comment: Resu lt confirmed by dilution Post-Menopausal Reference Range is: 0.1-11.6 mIU/mL Performed By: #### 7 [id number] #### [facility] (DEFAULT) [address] [place] [address] Coding Summary.on 12-19-2018 Coding Summary. CODING DATE: 019 FINAL [facility] STATUS: Left Against Medical Advice PAYOR: Medicaid [...] Boykin Date Saved: 12/19/2018 10:35 am Normal [facility] ED Clinical Summaryon 2018 ED Clinical Summary (Inserted Image. Elena ble to display) [place] [id number] ED Clinical Summary Person Information Name: [facility] Age[facility] 28 Years : 1990 12:00 AM Sex: Female Language: PCP: Marital Status: Phone: [phone] Visit Id: Visit Reason: Test; MENSTRUAL PROBLEMS [...] 12/15/2018 5:58 PM 12/15/2018 5:58 PM ADDRESS: [address] [place] [id number] PHYS DOC NOTES: MEDICAL INFORMATION: Prescriptions Given: PATIENT EDUCATION INFORMATION: Instructions: Follow up: DIAGNOSIS: Normal [facility] ED Patient Education Noteon 12-15-2018 ED Patient Education Note Normal [facility] ED Patient Summaryon 019 ED Patient Summary (Inserted Image. Elena ble to display) [address] [address] Patient Discharge Instructions Person Information Name: ZULEIKA VILLALTA Age: 28 Years Arrival Date: 12/15/2018 4:37 PM Discharge Diagnosis: Primary Care Physician: Provider Information Primary Provider: Advanced Clinical Quality Assurance Specialist:None The exam and treatment you received in the Emergency Department were for an urgent problem and are not intended as complete care. It is important that you follow up with a doctor, nurse practitioner, or physician?s pet care assistant for ongoing care. If your symptoms [...] opioids can be used to help relieve wsxlbeyp-qq-glcmku pain and are often prescribed following a [...] be struggling with addiction, tell your health senior resident care director and ask for guidance or call SAMHSA?S National Helpline at 3-189-935-VVYN. p Source: [place] Department of Health and Human Services/Center for Disease Control & Prevention [facility] Medications Given: Medication Dose Route No medications found. Medication Information: Comment: Pharmacy Information: Thank you for choosing [facility] Patient Education Materials: AyazJADEN [place] , have received the following patient education materials/instructions and have verbalized understanding: Patient Education Materials: Follow-up Instructions: Prescriptions: Patient Signature __ Date Clinician/Nurse Signature Date 12/15/18 17:58:10 [facility] Progress Note-Nurseon 2018 Progress Note-Nurse Patient: EDGARDO VILLALTA Age: 28 years Sex: Female : 1990 Associated Diagnoses: None Author: Jimena DURAN, Soha Whitehead Progress Note This RN updated pt on results due to request. Pt stating she wants to leave at this time because all i wanted to know is if I'm or not . RN states she should still be seen by a provider. Pt states she needs to leave to take care of her daughter. Normal [facility] U BetaHcg Qualon 12-15-2018 HCG.beta subunit (U) [Moles/Vol] Negative Normal [facility] Comment on above: Performed By: #### 2 [id number], [id number] #### [facility] Laboratory [address] [place] [address] UA With Cult Reflexon 2018 Bacteria LM Ql (Urine sed) TRACE Normal Trace [facility] Comment on above: Performed By: #### 2 [id number], [id number] #### [facility] Laboratory [address] [place] [address] Bilirubin Ql (U) Negative Normal Negative [facility] Comment on above: Performed By: #### 2 [id number], [id number] #### [facility] Laboratory [address] [place] [address] Clarity (U) CLEAR Normal Clear [facility] Comment on above: Performed By: #### 2 [id number], [id number] #### [facility] Laboratory [address] [place] [address] Color (U) YELLOW Normal Yellow [facility] Comment on above: Performed By: #### 2 [id number], [id number] #### [facility] Laboratory [address] [place] [address] Epithelial cells.squamous LM.HPF (Urine sed) [#/Area] 0-2 Normal 0-2 [facility] Comment on above: Performed By: #### 2 [id number], [id number] #### [facility] Laboratory [address] [place] [address] Glucose Test strip (U) [Mass/Vol] Negative Normal Negative [facility] Comment on above: Performed By: #### 2 [id number], [id number] #### [facility] Laboratory [address] [place] [address] Hemoglobin Ql (U) Negative Normal Negative [facility] Comment on above: Performed By: #### 2 [id number], [id number] #### [facility] Laboratory [address] [place] [address] Ketones (U) [Mass/Vol] Negative Normal Negative Fi [facility] Comment on above: Performed By: #### 2 [id number], [id number] #### [facility] Laboratory [address] [place] [address] Sutton.plasma/Sutton .RBC (Bld) [Mass ratio] 0-3 Normal 0-3 [facility] Comment on above: Performed By: #### 2 [id number], [id number] #### [facility] Laboratory [address] [place] [address] Nitrite Ql (U) Negative Normal Negative [facility] Comment on above: Performed By: #### 2 9652520, [id number] #### [facility] Laboratory [address] [place] [address] pH (U) 6.5 [pH] 5.0-9.0 [facility] Comment on above: Performed By: #### 2 8654056, [id number] #### [facility] Laboratory [address] [place] [address] Protein (U) [Mass/Vol] Negative Normal Negative [facility] Comment on above: Performed By: #### 2 [id number], [id number] #### [facility] Laboratory [address] [place] [address] Specific gravity (U) [Rel density] 1.010 1.005-1.03 0 [facility] Comment on above: Performed By: #### 2 0658489, [id number] #### [facility] Laboratory [address] [place] [address] UA Spec Desc Clean Catch Normal [facility] Comment on above: Performed By: #### 2 9786396, [id number] #### [facility] Laboratory [address] [place] [id number] Urobilinogen Qn (U) 0.2 {Pamela'U}/dL Normal 0.0-1.0 [facility] Comment on above: Performed By: #### 2 7287203, [id number] #### [facility] Laboratory [address] [place], [place] [id number] WBC Auto Ql (U) Negative Normal Negative [facility] Comment on above: Performed By: #### 2 5845002, [id number] #### [facility] Laboratory [address] [place] [address] WBC LM.HPF (Urine sed) [#/Area] 0-5 Normal 0-5 [facility] Comment on above: Performed By: #### 2 7540277, [id number] #### [facility] Laboratory [address] [place] [address] Auto Diffon 12-12-2017 Basophils Auto #/vol (Bld) 0.1 E3/mcL Normal 0.0-0.2 [facility] Comment on above: Order Comment: Order Added by Discern Expert. Performed By: #### 2 981928 ####KADEN [address] [place] [address] Basophils/100 WBC Auto (Bld) 0.9 % Normal 0.0-2.0 [facility] Comment on above: Order Comment: Order Added by Discern Expert. Performed By: #### 2 537675 ####KADEN [address] [place] [address] Eos Absolute 0.0 E3/mcL Normal 0.0-0.7 [facility] Comment on above: Order Comment: Order Added by Discern Expert. Performed By: #### 2 549490 ####KADEN [address]QlkUtgc[address] [place] [address] Eosinophils/100 leukocytes 0.4 % Normal 0.0-11.0 [facility] Comment on above: Order Comment: Order Added by Discern Expert. Performed By: #### 2 087670 ####KADEN [address]yaCyql[address] [place] [address] Lymphocytes 1.4 E3/mcL Normal 1.2-3.4 [facility] Comment on above: Order Comment: Order Added by Discern Expert. Performed By: #### 2 814000 ####KADEN BairdCotZtx[address] [place] [address] Lymphocytes/100 leukocytes 16.6 % Low 20.0-55.0 [facility] Comment on above: Order Comment: Order Added by Discern Expert. Performed By: #### 2 628480 ####KADEN [address]gu[address] [place] [address] [place] Absolute 0.5 E3/mcL Normal 0.0-0.7 [facility] Comment on above: Order Comment: Order Added by Discern Expert. Performed By: #### 2 649247 ####KADEN [address] [place] [address] Monocytes/100 leukocytes 5.5 % Normal 0.0-10.0 [facility] Comment on above: Order Comment: Order Added by Discern Expert. Performed By: #### 2 173419 ####KADEN [address] [place] [address] Neutro Absolute 6.7 E3/mcL High 1.4-6.5 [facility] Comment on above: Order Comment: Order Added by Discern Expert. Performed By: #### 2 761930 ####KADEN [address] [place] [address] Neutro Auto 76.6 % High 37.0-75.0 [facility] Comment on above: Order Comment: Order Added by Discern Expert. Performed By: #### 2 525184 ####KADEN [address] [place] [address] CBC w/ Auto Diffon 8 Erythrocyte distribution width Auto Ratio (RBC) 15.0 % High 11.5-14.5 [facility] Comment on above: Performed By: #### 2 982391 ####KADEN [address] [place] [address] Erythrocytes (RBC) 4.94 E6/mcL Normal 3.90-5.40 [facility] Comment on above: Performed By: #### 2 424887 ####KADEN [address] [place] [address] Hematocrit (HCT) 40.0 % Normal 36.0-48.0 [facility] Comment on above: Performed By: #### 2 322196 ####KADEN [address] [place] [address] Hemoglobin mass conc (Bld) 13.0 g/dL Normal 12.0-16.0 [facility] Comment on above: Performed By: #### 2 411535 ####KADEN [address]wnj[address] [place] [address] MCH 26.2 pg Low 27.0-31.0 [facility] Comment on above: Performed By: #### 2 032482 ####KADEN [address] [place] [address] MCHC mass conc (RBC) 32.4 g/dL Low 33.0-37.[address] [facility] Comment on above: Performed By: #### 2 602673 ####KADEN [address] [place] [address] MCV 81.0 fL Normal 78.0-100.0 [facility] Comment on above: Performed By: #### 2 324633 ####KAEDN [address] [place] [address] Platelet mean volume (PMV) 7.5 fL Normal 7.4-11.0 [facility] Comment on above: Performed By: #### 2 466531 ####KADEN [address] [place] [address] Platelets 347 E3/mcL Normal 130-400 [facility] Comment on above: Performed By: #### 2 883858 ####KADEN [address] [place] [address] WBC (Leukocytes) 8.7 E3/mcL Normal 3.6-11.0 [facility] Comment on above: Performed By: #### 2 836250 ####KADEN [address] [place] [address] CMPon 12-12-2017 Alanine aminotransferase (ALT) 14 Int._Unit/L Normal 10-40 [facility] Comment on above: Performed By: #### 2 518671 ####KADEN [address] [place] [address] Albumin 3.8 g/dL Normal 3.2-5.0 [facility] Comment on above: Performed By: #### 2 941735 ####KADEN [address] [place] [address] Albumin/Globulin Ratio 1.0 {ratio} Low 1.1-1.9 [facility] Comment on above: Performed By: #### 2 990943 ####KADEN [address] [place] [address] Alk Phos 75 Int._Unit/L Normal 42-121 [facility] Comment on above: Performed By: #### 2 796425 ####KADEN [address] [place] [address] Aspartate aminotransferase (AST) 18 Int._Unit/L Normal 10-42 [facility] Comment on above: Performed By: #### 2 839816 ####KADEN [address] [place] [address] Bili Total 1.0 mg/dL Normal 0.2-1.0 [facility] Comment on above: Performed By: #### 2 261281 ####KADEN [address] [place] [address] BUN/Creatinine Ratio 12.5 ratio Normal 5.4-30.[address] [facility] Comment on above: Performed By: #### 2 028012 ####KADEN [address] [place] [address] Creatinine 0.8 mg/dL Normal 0.6-1.3 [facility] Comment on above: Performed By: #### 2 663151 ####KADEN [address] [place] [address] Globulin 3.8 g/dL Normal 2.0-4.0 [facility] Comment on above: Performed By: #### 2 096205 ####KADEN [address] [place] [address] Protein 7.6 g/dL Normal 6.4-8.3 [facility] Comment on above: Performed By: #### 2 739677 ####KADEN [address] [place] [address] Urea nitrogen 10 mg/dL Normal 7-18 [facility] Comment on above: Performed By: #### 2 825242 ####KADEN [address]airdAtrXjxr[address] [place] [address] Calcium 9.3 mg/dL Normal 8.4-10.2 [facility] Comment on above: Performed By: #### 2 516033 ####KADEN [address] [place] [address] Chloride 105 mmol/L Normal 98-107 [facility] Comment on above: Performed By: #### 2 103374 ####KADEN [address] [place] [address] CO2 25.1 mmol/L Normal 24.0-30.0 [facility] Comment on above: Performed By: #### 2 616720 ####KADEN [address] [place] [address] Glucose mass conc 101 mg/dL High 70-99 [facility] Comment on above: Performed By: #### 2 025904 ####KADEN [address] [place] [address] Potassium molar conc 3.4 mmol/L Low 3.5-5.[address] [facility] Comment on above: Performed By: #### 2 573276 ####KADEN [address] [place] [address] Sodium 140 mmol/L Normal 136-145 [facility] Comment on above: Performed By: #### 2 296540 ####KADEN [address] [place] [address] Lipase Levelon 12-12-2017 Lipase Lvl 30 U/L Normal 8-57 [facility] Comment on above: Performed By: #### 2 757299 ####KADEN [address] [place] [address] UA Completeon 12-12-2017 UA Blood 3+ Normal Negative [facility] Comment on above: Performed By: #### 2 187729 ####KADEN [address] [place] [address] UA Bacteria Trace Abnormal None [facility] Comment on above: Performed By: #### 2 846310 ####KADEN [address] [place] [address] UA Clarity SltCloudy Abnormal Clear [facility] Comment on above: Performed By: #### 2 750579 ####KADEN [address] [place] [address] UA Hyal Cast 0-2 Normal 0-2 [facility] Comment on above: Performed By: #### 2 414785 ####KADEN [address] [place] [address] UA Leuk Est 3+ Abnormal Negative [facility] Comment on above: Performed By: #### 2 577688 ####KADEN [address] [place] [address] UA Mucous Many Abnormal Trace [facility] Comment on above: Performed By: #### 2 373024 ####KADEN [address]uc[address] [place] [address] UA Nitrite Negative Normal Negative [facility] Comment on above: Performed By: #### 2 800413 ####KADEN FbrHgyu[address] [place] [address] UA pH 5.0 Normal 4.6-8.0 [facility] Comment on above: Performed By: #### 2 401214 ####KADEN FjfEalm[address] [place] [address] UA Protein 1+ Abnormal Negative [facility] Comment on above: Performed By: #### 2 161339 ####KADEN L[address]Xztx[address] [place] [address] UA Spec Grav 1.026 Normal 1.003-1.[address] [facility] Comment on above: Performed By: #### 2 174831 ####KADEN QeqPhvx[address] [place] [address] UA Squam Epithelial 0-5 Normal 0-5 [facility] Comment on above: Performed By: #### 2 978136 ####KADEN RbyWrxm[address] [place] [address] UA Urobilinogen 2.0 mg/dL Abnormal [facility] Comment on above: Performed By: #### 2 681364 ####KADEN [address]Sdyu[address] [place] [address] UA WBC >50 Abnormal 0-5 [facility] Comment on above: Performed By: #### 2 733540 ####KADENMorelia BairdLfpVhdt[address] [place] [address] Urine, color Yellow Normal Yellow [facility] Comment on above: Performed By: #### 2 558725 ####KADENMorelia BairdYivMtaq[address] [place] [address] Urine, erythrocytes 20-50 Abnormal 0-3 [facility] Comment on above: Performed By: #### 2 578154 ####KADEN [address] [place] [address] Urine, glucose Negative Normal Negative [facility] Comment on above: Performed By: #### 2 316678 ####KADEN [address] [place] [address] Urine, ketones presence Trace Normal [facility] Comment on above: Performed By: #### 2 517917 ####KADEN BairdVxwQoll[address] [place] [address] Urine, urobilinogen Negative Normal Negative [facility] Comment on above: Performed By: #### 2 142517 ####KADEN [address] [place] [address] eGFRon 12-12-2017 eGFR AA >[address] [facility] Comment on above: Order Comment: Order Added by Discern Expert. Performed By: #### 2 956258 ####KADEN [address] [place] [address] eGFR (non-black) mL/min/{1.73_m2} Normal [facility] Comment on above: Order Comment: Order Added by Discern Expert. Performed By: #### 2 981858 ####KADEN [address] [place] [id number] HISTORY PHYSICALon 8 HISTORY PHYSICAL HNO ID: [id number] thor: Clara ChaoeService: Maternal MedicineAuthor Type: PhysicianType: HANDPFiled: 12/02/2017 9:04 AMNote Text:STANDARD [facility] DOCUMENTDISCHARGE SUMMARYPatient Name: Zuleika Gtz [...] in 4 weeks with provider.Clara Jama, DO Normal [facility] PROGRESSon 12-02-2017 PROGRESS HNO ID: [id number] thor: Marie Lema (Res) LendeService: ObstetricsAuthor Type: [...] to home. Has appt with medical genetics01/15/18.Signature: Clara Jama, DODate: 12/02/2017Time: 8:43 AMI spent 32 minutes in the visit, with more than 50% of the total jatz-xj-tczjdzzi of the visit in counseling / coordination [...] with current regimen. Lochia decreasing.Ambulating without difficulty.OBJECTIVE:PHYSI EGN EXAM:Heart: RR, S1, K7Xcmrz: clear to auscultationAbdomen: Soft Bowel sounds present [...] December 02, 2017 : 5:45 AM Normal [facility] SOCIAL WORKon 12-02-2017 SOCIAL WORK HNO ID: [id number] thor: Meredith (Ephraim) ManueloService: Social WorkAuthor Type: Social WorkerType: Social WorkFiled: 12/02/2017 12:25 PMNote Text:SOCIAL WORK CONSULT NOTESERVICE DATE: 12/02/2017SERVICE TIME: 1015Referred by: NurseShad for visit:Maternal/Infant - adjustment to conditionLiving Arrangement: HomeLives With: PartnerFinancial Resources: DisabledPrimary Contact:Extended Emergency Contact Information DARRELL BRANCH [facility] Emergency Contact: No,ContactRelation: OtherSupportive: YesOther Important Patient Contacts: FOB family (Anamika Munoz)Health Insurance: MedicaidVirginia Nishant Villalta is a 27 year old female with 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 RN adds FOB has been with pt and infant continuouslyfor support.Met with pt and FOB (Darrell [...] from hospital. (FOBparents are Anamika Munoz of [address] [place] [address]).Per pt and FOB, all needed baby supplies and equipment are at the [facility] and a nursery has been set up.Per pt, name of baby girl is Martha Branch.Pt states she is on SSI and WIC.Pt shares that she is in ongoing counseling at [facility] in [place] and has appointments 2 x per month.Discussed with pt and FOB signs and sx of depression; safe babysleep and discussed ways to deal with crying infant. Pt again states sheis going to rely on her support system.No additional issues identified at this time. Encouraged pt and FOB toutilize services through [facility]. Providedcontact information.Outcome/Recomm endations:Assistance through [facility] spent (minutes): 60SIGNATURE: CARLA Goncalves PATIENT NAME: Zuleika Hernandez: December 02, 2017 : 11:10 AM PAGER/CONTACT#: Debo [facility] ANES INTRAOPon 12-01-2017 ANES INTRAOP HNO ID: [id number] thor: Terrance Lockhartervice: AnesthesiologyAuthor Type: Nurse AnesthetistType: Anesthesia IntraOpFiled: 12/01/2017 9:41 AMNote Text:ANALGESIA PROGRESS RECORDCATHETER REMOVAL/END OF CASESERVICE DATE: 12/01/2017REMOVAL DATE AND TIME: 11/30/2017, 3DELIVERY DATE AND TIME: 11/30/2017 at 5:49 PMCATHETER REMOVAL:Catheter Removal: See [facility] Nursing noteSIGNATURE: Terrance Contreras APRN.CRNA PATIENT NAME: Zuleika Hernandez: December 01, 2017 : 9:40 AM PAGER/CONTACT #: [facility] ANES Keke 12-01-2017 ANES POST HNO ID: [id number] thor: Terrance Lockhartervice: AnesthesiologyAuthor Type: Nurse AnesthetistType: [...] by Anesthesia Service: NoneOther Remarks:SIGNATURE: Terrance Contreras APRN.CRNA PATIENT NAME: Zuleika LambATE: December 01, 2017 : 9:42 AM PAGER/CONTACT #: Debo [facility] PROGRESSon 12-01-2017 PROGRESS HNO ID: [id number] thor: Marie Lema (Res) LendeService: ObstetricsAuthor Type: ResidentType: Progress NotesFiled: 12/01/2017 6:42 AMNote Text: -------Attestation signed by Oksana Robbins at 12/01/2017 8:47 AMPatient seen and examined [...] decreasing.Ambulating without difficulty.OBJECTIVE:PHYSI GEN EXAM:Heart: RR, S1, N5Xpnol: clear to auscultationAbdomen: Soft Bowel sounds present [...] December 01, 2017 : 6:40 AM Normal [facility] ABO/Rh Confirmationon 2017 ABO group Nom (Bld) A Normal [facility] Comment on above: Performed By: #### A JESSIE #### [place] [id number] RH Type Positive [facility] Comment on above: Performed By: #### A JESSIE #### [facility] [address] [place] [id number] ANES PREOPon 11-30-2017 ANES PREOP HNO ID: [id number] thor: Aaron Leblanc) EarleyService: AnesthesiologyAuthor Type: Nurse AnesthetistType: Anesthesia PreOpFiled: 11/30/2017 [...] of Sleep Apnea: DeniesHematocritDate Value Ref Range Ykvzhl3611/30/2017 32.3 (L) 34.1 - 44.9 % Final Platelet CountDate Value Ref Range Omncka4611/30/2017 193 182 - 369 thou/cmm Final Vitals: 077450 938404 139 143BP: 142/75 138/81Pulse: 75 81Resp:Temp: 36.6 [...] as needed. Disp: Rfl:Inpatient medications reviewed in [facility].I have interviewed and examined the patient. I have reviewed the medicalrecord , pertinent consults and/or the pre-anesthesia evaluation,pertinent labs, and test results.Significant changes in the patient's condition since the History andPhysical, not otherwise documented in primary service progress notes: [facility] updated information obtained within 48 hours ofSurgery/Procedure.SIGNAT URE: Hema Cuellar APRN.PATROLLER PATIENT NAME: Zuleika LambATE: November 30, 2017 : 12:13 PM : 1990 Normal [facility] Auto Diffon 11-30-2017 Basophils Auto #/vol (Bld) 0.1 E3/mcL Normal 0.0-0.2 [facility] Comment on above: Order Comment: Order Added by Discern Expert. Performed By: #### 2 [id number] ####KADEN JwcJais6627 [place] [address] Basophils/100 WBC Auto (Bld) 0.9 % Normal 0.0-2.0 [facility] Comment on above: Order Comment: Order Added by Discern Expert. Performed By: #### 2 [id number] ####KADEN BairdQtoAsse[address]256 [place] [address] Eos Absolute 0.1 E3/mcL Normal 0.0-0.7 [facility] Comment on above: Order Comment: Order Added by Discern Expert. Performed By: #### 2 354349 ####KADEN BairdKimOqxp6736 [place] [address] Eosinophils/100 leukocytes 1.0 % Normal 0.0-11.0 [facility] Comment on above: Order Comment: Order Added by Discern Expert. Performed By: #### 2 [id number] ####KADEN KboDnkt9907 [place] [address] Lymphocytes 2.0 E3/mcL Normal 1.2-3.4 [facility] Comment on above: Order Comment: Order Added by Discern Expert. Performed By: #### 2 000601 ####KADEN AvaXrta[address] [place] [address] Lymphocytes/100 leukocytes 22.1 % Normal 20.0-55.0 [facility] Comment on above: Order Comment: Order Added by Discern Expert. Performed By: #### 2 177827 ####KADEN OddXygx7497 [place] [address] [place] Absolute 0.7 E3/mcL Normal 0.0-0.7 [facility] Comment on above: Order Comment: Order Added by Discern Expert. Performed By: #### 2 548479 ####KADEN GqvOngu1782 [place] [address] Monocytes/100 leukocytes 7.5 % Normal 0.0-10.0 [facility] Comment on above: Order Comment: Order Added by Discern Expert. Performed By: #### 2 428487 ####KADEN PwfBedj5171 [place] [address] Neutro Absolute 6.1 E3/mcL Normal 1.4-6.5 [facility] Comment on above: Order Comment: Order Added by Discern Expert. Performed By: #### 2 836377 ####KADEN [address] [place] [address] Neutro Auto 68.5 % Normal 37.0-75.0 [facility] Comment on above: Order Comment: Order Added by Discern Expert. Performed By: #### 2 286814 ####KADEN [address] [place] [address] CBC w/ Auto Diffon 8 Erythrocyte distribution width Auto Ratio (RBC) 14.3 % Normal 11.5-14.5 [facility] Comment on above: Performed By: #### 2 465456 ####KADEN [address] [place] [id number] Erythrocytes (RBC) 4.34 E6/mcL Normal 3.90-5.40 [facility] Comment on above: Performed By: #### 2 050320 ####KADEN [address] [place] [id number] Hematocrit (HCT) 35.1 % Low 36.0-48.0 [facility] Comment on above: Performed By: #### 2 416296 ####KADEN [address] [place] [id number] Hemoglobin mass conc (Bld) 11.6 g/dL Low 12.0-16.0 [facility] Comment on above: Performed By: #### 2 798059 ####KADEN [address] [place] [id number] MCH 26.6 pg Low 27.0-31.0 [facility] Comment on above: Performed By: #### 2 754309 ####KADEN [address] [place] [id number] MCHC mass conc (RBC) 32.9 g/dL Low 33.0-37.[address] [facility] Comment on above: Performed By: #### 2 885658 ####KADEN [address] [place] [address] MCV 80.9 fL Normal 78.0-100.0 [facility] Comment on above: Performed By: #### 2 981354 ####KADEN [address] [place] [id number] Platelet mean volume (PMV) 7.6 fL Normal 7.4-11.0 [facility] Comment on above: Performed By: #### 2 185234 ####KADEN [address] [place] [address] Platelets 217 E3/mcL Normal 130-400 [facility] Comment on above: Performed By: #### 2 925156 ####KADEN WcvFcbv8246 [place] [address] WBC (Leukocytes) 8.8 E3/mcL Normal 3.6-11.0 [facility] Comment on above: Performed By: #### 2 945680 ####KADEN BairdAvsIhtc7254 [place] [address] CONSULTon 11-30-2017 CONSULT HNO ID: [id number] thor: Marie Lema (Res) LendeService: ObstetricsAuthor Type: [...] options.Patient received written information about post-delivery contraceptionoptions.[facility] campusISTORY REVIEWPAST MEDICAL HISTORYDiagnosis Date- Club foot- alcohol [...] T0 L0 SAB1 TAB0 Ectopic0 Multiple0 Live Almgys9Mxju of Baby 1: Not recorded Date: 2014 [...] pupils equal, no thyromegalyLungs: clearHeart: RR, S1, R2Pgryokr: soft, nontender, no massesUterus: soft, NTExtremities: 1+ edemaDTRs: 2+FHT: bpmSt Spec Exam: (not done)CERVICAL EXAM:Dilation: 1 (11/30/17 0648 : Marie Lema (Res) Sonya) cmStation: -2 (11/30/17 0648 : Marie Lema (Res) Sonya)Effacement: 60 (11/30/17 0648 : Marie Lema (Res) [...] Epi prn4. [place] [address]. anomalies- prominent cisterna magna, bilateral periventrcularnodular heterotopia, 2cm umbilical vein varix, nonvisualization ofgallbladder, samaria-cross pulmonary veins, thymic hypoplasia, moderatelydilated ascending aorta. . FTC plan in placed. Will need postnatalevaluation with Medical genetics and echocardiogram. Low risk cellfree DNA.7. Maternal Alcohol syndrome- has been consenting for care/guardianesince age 23.8. H/o maternal PDA- s/p repair as infant.9. Valvular insufficiency- Echo on 07/09/17 with EF 55%.10. H/o maternal clubfoot-s/p repair as ncdzya33. H/o tobacco abuseSigned out to [facility] for deliveryDr. Amado reviewed with Dr. MaldonadoSIGNATURE: Marie Hassan DO PATIENT NAME: Zuleika LambATE: November 30, 2017 : 6:49 AM PAGER/CONTACT #: [phone] Normal [facility] HISTORY PHYSICALon HISTORY PHYSICAL HNO ID: [id number] thor: Maire Lema (Res) JabiereService: ObstetricsAuthor Type: ResidentType: HANDPFiled: 11/30/2017 7:00 AMNote Text: -------Attestation signed by Oksana Robbins at 11/30/2017 9:32 AMPatient seen and examined [...] T0 L0 SAB1 TAB0 Ectopic0 Multiple0 Live Etgghx2Zzwq of Baby 1: Not recorded Date: 2014 [...] pupils equal, no thyromegalyLungs: clearHeart: RR, S1, Z0Cdvxqpl: soft, nontender, no massesUterus: soft, NTExtremities: 1+ edemaDTRs: 2+FHT: bpmSt Spec Exam: (not done)CERVICAL EXAM:Dilation: 1 (11/30/17 0648 : Marie Lema (Res) Lende) cmStation: -2 (11/30/17 0648 : Marie N (Res) Lende)Effacement: 60 (11/30/17 0648 : Marie N (Res) Lende) %Position:Presentation: Pelvimetry: Pelvimetry clinically assessed as adequateFETAL MONITORING/ASSESSMENT:Base line: 140sVariability: ModerateAccelerations: Acelerations presentDecelerations: AbsentContractions: Rare contractionsFrequency: rareNST Interpretation: IFHR Category:NST Comments:EFW: 6.5 based on clinical assessment.Ultrasound:Posi tion: VertexPlacenta: AnteriorCardiac Motion: PresentAmniotic Fluid: No 2X2 pocket notedDiagnostic tests reviewed for today's visit:Assessment/Plan27 year old EGA:39w0d. Is admitted for augmentation for PROM1. GBS-2. Pit per protocol3. Epi prn4. [place]5. [place] [address]. anomalies- prominent cisterna magna, bilateral periventrcularnodular heterotopia, 2cm umbilical vein varix, nonvisualization ofgallbladder, samaria-cross pulmonary veins, thymic hypoplasia, moderatelydilated ascending aorta. . FTC plan in placed. Will need postnatalevaluation with Medical genetics and echocardiogram. Low risk cellfree DNA.7. Maternal Alcohol syndrome- has been consenting for care/guardianesince age 23.8. H/o maternal PDA- s/p repair as infant.9. Valvular insufficiency- Echo on 07/09/17 with EF 55%.10. H/o maternal clubfoot-s/p repair as vecfwq08. H/o tobacco abuseSigned out to [facility] for deliveryD/w Dr. AmadoSIGNATURE: Marie Hassan DO PATIENT NAME: Zuleika LambATE: November 30, 2017 : 6:49 AM PAGER/CONTACT #: [phone] Normal [facility] Hemogramon 11-30-2017 Erythrocyte distribution width Ratio (RBC) 13.6 % Normal 11.7-14.4 [facility] Comment on above: Performed By: #### C BC1 #### [place] [address] Hematocrit Volume Fraction (Bld) 32.3 % Low 34.1-44.9 [facility] Comment on above: Performed By: #### C BC1 #### [place] [address] Hemoglobin mass conc (Bld) 10.4 g/dL Low 11.2-15.7 [facility] Comment on above: Performed By: #### C BC1 #### [place] [address] MCH Entitic mass (RBC) 26.4 pg Normal 25.6-32.2 [facility] Comment on above: Performed By: #### C BC1 #### [place] [address] MCHC mass conc (RBC) 32.2 % Normal 31.6-34.8 [facility] Comment on above: Performed By: #### C BC1 #### [facility] [address] [place] [address] MCV Entitic volume (RBC) 82.0 fL Normal 79.4-94.8 [facility] Comment on above: Performed By: #### C BC1 #### [facility] [address] [place] [address] Platelet mean volume Entitic volume (Bld) 9.9 fL Normal 9.4-12.3 [facility] Comment on above: Performed By: #### C BC1 #### [facility] [address] [place] [address] Platelets #/vol (Bld) 193 thou/cmm Normal 182-369 A [facility] Comment on above: Performed By: #### C BC1 #### [facility] [address] [place] [address] RBC #/vol (Bld) 3.94 mil/cmm Normal 3.93-5.22 [facility] Comment on above: Performed By: #### C BC1 #### [facility] [address] [place] [address] RDW SD 40.6 fl Normal 36.4-46.3 [facility] Comment on above: Performed By: #### C BC1 #### [facility] [address] [place] [address] WBC #/vol (Bld) 9.85 thou/cmm Normal 3.98-10.04 [facility] Comment on above: Performed By: #### C BC1 #### [facility] [address] [place] [address] LD NOTEon 11-30-2017 LD NOTE HNO ID: [id number] thor: Marie Lema (Res) LendeService: ObstetricsAuthor Type: ResidentType: LANDD Delivery NoteFiled: 11/30/2017 6:19 PMNote Text: -------Attestation signed by Serenity Maldonado MD at 12/01/2017 6:04 PMI saw and evaluated the patient. I reviewed the resident's note and agree,except that patient seen by [facility] (patient has FAS, fetus with multipleanomlaies) service, consult placed to [facility] for management of labor AND delivery.Essential primsathish presented at 39w with PROM, had Pugh balloon AND Pitocin foraugmentaion. Late in labor noted tachycardia that improved with IVFB ANDTylenol (mother rico had elevated temp but felt warm). [facility] [place] [facility] N[facility] team for evaluation (was allowed tohave delivery to abdomen AND 30 sec delay for cord clamping). Pushed well AND hadSVD of a viable female (APGARS 8,9, weight of 3200g/7#1oz) over intactperineum. Uterus slightly boggy after delivery, responded to massage AND Pitocininfusion, EBL ~500cc.Serenity Maldonado MD ----OBSTETRICSDELIVERY SUMMARY - VAGINAL DELIVERYGestational Age at Delivery: 84y7wVjsuhvm Date: 11/30/2017Service Time: 1799KeeganBg Zuleika [[id number]]Labor EventsRupture Date: 11/30/17Rupture Time: 224Rupture Type: PROMFluid Color: ClearInduction: Yes Induction Method: OxytocinEpisiotomy/Lacerat ion:Episiotomy: NoneLacerations: NoneEstimated Blood Loss (mL):Estimated Blood Loss (mL): 500Date and Time of :Date of : 11/30/17Time of : 1749Delivery Information:Primary Reason for Delivery : Ruptured MembranesAdditional [...] November 30, 2017 : 6:15 PM Normal [facility] NURSING PROGon 11-30-2017 NURSING PROG HNO ID: [id number] thor: Marguerite (Rn) ANEUDY Albarranervice: (none)Author Type: Registered NurseType: Nursing Progress NoteFiled: 11/30/2017 7:06 PMNote Text: INTRODUCED SELF TO PATIENT AND SUPPORT PERSONS. PLAN OF CARE DISCUSSED.ASSESSMENT PERFORMED. PATIENT DENIES COMPLAINTS. Normal [facility] NURSING PROG HNO ID: [id number] thor: Darcie (Rn) ANEUDY Landeroservice: NursingAuthor Type: Registered NurseType: Nursing Progress NoteFiled: 11/30/2017 10:03 AMNote Text:Patient up to shower for comfort. Boyfriend at side. On telemetrymonitors. RN remains in room. FHR difficult to maintain continuoustracing Normal [facility] NURSING PROG HNO ID: [id number] Author: Norah (Rn) KARRI Eastman Service: Nursing Author Type: Registered Nurse Type: Nursing Progress Note Filed: 11/30/2017 7:18 AM Note Text: Report given to Darcie DURAN and care transferred at this time. Normal [facility] PROCEDUREon 11-30-2017 PROCEDURE HNO ID: [id number] thor: Aaron (Chiara) PoloService: AnesthesiologyAuthor Type: Nurse AnesthetistType: ProceduresFiled: 11/30/2017 12:30 PMNote Text:OB ANESTHESIA PROCEDURE:EPIDURAL LABOR PCEA ANALGESIAPROCEDURE DATE: 11/30/2017PROCEDURE START TIME: 1225The patient was placed in a sitting position. [...] Catheter in Epidural Space: 5 cmInterspace: approximately L2-G7Pdyywv of Attempts: 1Wet Tap Complication: NoDural Puncture [...] nurses' documentation for additional vitals.SIGNATURE: Hema Cuellar APRN.PATROLLER PATIENT NAME: Zuleika BecerrilnDATE: November 30, 2017 : 12:27 PM PAGER/CONTACT #: Normal [facility] PROGRESSon 11-30-2017 PROGRESS HNO ID: [id number] thor: Marie Lema (Res) LendeService: ObstetricsAuthor Type: ResidentType: Progress NotesFiled: 11/30/2017 5:04 PMNote Text:UpdatePatient is pushing in the OR. Cat I FHRT with baseline around 160s. updated and in house.Franki Neri 2017 5:04 PM [facility] PROGRESS HNO ID: [id number] Author: Darcie MagañaRn) Tigre RN Service: Nursing Author Type: Registered Nurse Type: Progress Notes Filed: 11/30/2017 3:29 PM Note Text: Patient feeling pressure, cervical exam 9.5 cm. NICU notified. Patient feels warm, but temp 36.9. [facility] PROGRESS HNO ID: [id number] thor: Marie Lema (Res) LendeService: ObstetricsAuthor Type: [...] Membrane Status: Premature (11/30/17 0853 : Darcie Washington) TigreRN)Rupture Date: 11/30/17 (11/30/17 0853 : Darcie [...] pt comfortable4. s/p FB5[place] [address]. anomalies- prominent cisterna magna, bilateral periventrcularnodular heterotopia, [...] EF 55%.10. H/o maternal clubfoot-s/p repair as mbyfsz04. H/o tobacco abuse12. Cat II- Isolate late decelerations. Moderate variability. Continuingto make cervical change. Not on Cat II protocol.SIGNATURE: Marie Hassan DO PATIENT NAME: Zuleika LambATE: November 30, 2017 : 1:35 PM PAGER/CONTACT #: [phone] Normal [facility] PROGRESS HNO ID: [id number] thor: Yolanda (Joaquín) SntinaerService: ObstetricsAuthor Type: ResidentType: Progress NotesFiled: 11/30/2017 1:14 PMNote Text:OBSTETRICSINTRAPARTUM PROGRESS NOTESERVICE DATE: November 30, 2017SERVICE TIME: 1:11 PMSubjectivePt c/o nausea for which she gets if she does not eat. Pt requestingpopsicle. Pt comfortable with epidural.ObjectiveLAST VITALS:Pulse BP Resp O2 Sat Temp Pain 78 122/63 18 100 % 36.7 ?C (98.1 ?F) 8/10PHYSICAL EXAM:CERVICAL EXAM:Last Exam Notes: Dilation: 5 (11/30/17 1309 : Yolanda Barbosa)Effacement (%): 80 (11/30/17 1309 : Yolanda Barbosa)Station: -2 (11/30/17 1309 : Yolanda Barbosa)Presentation: (not recorded)MEMBRANES:Status: Membrane Status: Premature (11/30/17 0853 : Darcie (Rn) TigreRN)Rupture Date: 11/30/17 (11/30/17 0853 : Darcie (Rn) Tigre RN)Rupture Time: 224 (11/30/17 0853 : Darcie (Rn) Tigre RN)Amniotic Fluid Color: Clear (11/30/17 0853 : Darcie (Rn) Tigre RN)Additional Findings: NoneFETAL MONITORINGFHT: 145/mod/rare accel/+early decelToco: 1-3 minutesCategory: ILABSDiagnostic tests reviewed for today's visit: No new labsAssessment/Plan27 year old EGA:39w0d. Admitted for AOL PROM1. GBS-2. Pit per protocol3. Epi in- pt comfortable4. s/p FB5. [place] [address]. anomalies- prominent cisterna magna, bilateral periventrcularnodular heterotopia, [...] EF 55%.10. H/o maternal clubfoot-s/p repair as mixfaz47. H/o tobacco abuseSIGNATURE: Yolanda Barbosa DO PATIENT NAME: Zuleika LambATE: November 30, 2017 : 1:11 PM PAGER/CONTACT #: [phone] Normal [facility] PROGRESS HNO ID: [id number] thor: Yolanda (Res) SnyderService: ObstetricsAuthor Type: ResidentType: Progress NotesFiled: 11/30/2017 11:07 [...] Date: 11/30/17 (11/30/17 0853 : Darcie (Karri) KARRI Landeros)Rupture Time: 0225 (11/30/17 0853 : Darcie (Karri) Tigre RN)Amniotic Fluid Color: Clear (11/30/17 0853 : Darcie (Rn) Tigre RN)Additional Findings: NoneFETAL MONITORINGFHT: 145/mod/+accels/neg decelsToco: 2-4 minutesCategory: ILABSDiagnostic tests reviewed for today's visit: No new labsAssessment/Plan27 year old EGA:39w0d. Admitted for augmentation of labor forPROM?1. GBS-2. Pit per protocol3[place] [address]. [place] [address]. anomalies- prominent cisterna magna, bilateral periventrcularnodular heterotopia, [...] EF 55%.10. H/o maternal clubfoot-s/p repair as lghepv13. H/o tobacco abuseSIGNATURE: Yolanda Barbosa DO PATIENT NAME: Zuleika LambATE: November 30, 2017 : 11:05 AM PAGER/CONTACT #: [phone] [facility] PROGRESS HNO ID: [id number] Author: Darcie Washington) KARRI Landeros Service: Nursing Author Type: Registered Nurse Type: Progress Notes Filed: 11/30/2017 10:35 AM Note Text: Unable to find labwork for chart. Normal [facility] PROGRESS HNO ID: [id number] thor: Marie Lema (Res) LendeService: ObstetricsAuthor Type: ResidentType: Progress NotesFiled: 11/30/2017 10:33 AMNote Text:OBSTETRICSINTRAPARTUM PROGRESS NOTESERVICE DATE: November 30, 2017SERVICE TIME: 10:31 AMSubjectivePatient with no complaints.ObjectiveLAST VITALS:Pulse BP Resp O2 Sat Temp Pain 75 142/75 18 100 % 36.6 ?C (97.9 ?F) 10PHYSICAL EXAM:CERVICAL EXAM:Last Exam Notes: Dilation: 1 (11/30/17 0648 : Marie Lema (Res) Sonya)Effacement (%): 60 (11/30/17 0648 : Marie Lema (Res) Sonya)Station: -2 (11/30/17 0648 : Marie Lema (Res) Sonya)Presentation: (not recorded)MEMBRANES:Status: Membrane Status: Premature (11/30/17 0853 : Darcie (Karri) KARRI Landeros)Rupture Date: 11/30/17 (11/30/17 0853 : Darcie Washington) Tigre RN)Rupture Time: 0225 (11/30/17 0853 : Darcie Washington) Tigre RN)Amniotic Fluid Color: Clear (11/30/17 0853 : Darcie Washington) Tigre RN)Additional Findings: NoneFETAL MONITORINGFHT: 135s Moderate/acelerations present/decelerations absentToco: 2-4 minutesCategory: ILABSDiagnostic tests reviewed for today's visit: Most recent labs and imagingresults.Assessment/ Plan27 year old EGA:39w0d. Admitted for augmentation for PROM1. GBS-2. Pit per protocol3[place] [address]. [place] [address]. anomalies- prominent cisterna magna, bilateral periventrcularnodular heterotopia, 2cm umbilical vein varix, nonvisualization ofgallbladder, samaria-cross pulmonary veins, thymic hypoplasia, moderatelydilated ascending aorta. . FTC plan in placed. Will need postnatalevaluation with Medical genetics and echocardiogram. Low risk cellfree DNA.7. Maternal Alcohol syndrome- has been consenting for care/guardianesince age 23.8. H/o maternal PDA- s/p repair as infant.9. Valvular insufficiency- Echo on 07/09/17 with EF 55%.10. H/o maternal clubfoot-s/p repair as . H/o tobacco abuse?SIGNATURE: Marie Hassan DO PATIENT NAME: Zuleika LambATE: November 30, 2017 : 10:31 AM PAGER/CONTACT #: [phone] Normal [facility] PROGRESS HNO ID: [id number] thor: Darcie (Rn) ANEUDY Landeroservice: NursingAuthor Type: Registered NurseType: Progress NotesFiled: 11/30/2017 10:13 AMNote Text:Patient remains in shower. RN and boyfriend at side. EFM on telemetryand adjusted while patient in shower. Difficult to keep baby on. Normal [facility] PROGRESS HNO ID: [id number] thor: Yolanda (Res) SnyderService: ObstetricsAuthor Type: ResidentType: Progress NotesFiled: 11/30/2017 7:35 AMNote Text:In to place FB. Pt tolerated procedure well. Continues to leak clearfluid. Pt uncomfortable with contractions.Cat I FHT, reactive with accelsToco: 2-5 minsHeather Romina, PGY-1Obstetrics and GynecologyPager [phone]:34 AM Normal [facility] Type and Screenon 11-30-2017 ABO group Nom (Bld) A [facility] Comment on above: Performed By: #### T &S #### [facility] [address] [place] [address] Comment See Below [facility] Comment on above: Result Comment: Scre en &/or Xmatch expires in 3 days at 12 midnight. Redraw patient at that time. Performed By: #### T &S #### [facility] [address] [place] [address] RH Type Positive [facility] Comment on above: Performed By: #### T &S #### [facility] [address] [place] [address] Progress Noteon 11-28-2017 Hard Hat Diver Authentication Interface Message Text Routine VisitSubjective: Zuleika Villalta is being seen today for her obstetrical visit. She is at 73h1vxjqeodkiq. Patient reports no complaints. Movement: normal. She [...] Serial growth ultrasounds every 4 weeks.DELIVERY PLANHospital: [facility] HospitalInduction at 39 weeks; CYTOTEC IOL 12-02-17 at 5 pm at [facility]. Pre-Procedure formdone (CG)GBS culture: neg 11/07/17Contraception: Considering LARC w/ AdadanayTDAP recommended Constipation during 10/08/2017 Improved Colace and [...] IVC[facility] S[facility] POC reviewedShe would like her follow up and contraception with Dr. Ivan.The total patient time of the visit was 15 minutes, of which greater than 50% ofthe time was spent counseling and coordinating care. Normal [facility] Progress Noteon 11-22-2017 Hard Hat Diver Authentication Interface Message Text FTC plan of care faxed to [facility] in event pt would arrive for urgent management. Normal [facility] Progress Noteon 11-21-2017 Hard Hat Diver Authentication Interface Message Text Routine VisitSubjective: Zuleika Villalta is being seen today for her obstetrical visit. She is at 45g8aovbzglvrv. Patient reports that she went to [facility] last night due toconcerns for labor. She [...] Serial growth ultrasounds every 4 weeks.DELIVERY PLANHospital: [facility] HospitalInduction at 39 weeks; CYTOTEC IOL 6-18-18 at 5 pm at [facility]. Pre-Procedure formdone (CG)GBS culture: neg 11/07/17Contraception: [...] for IOL on12/02/17.Oksana amado MD Normal [facility] Progress Noteon 11-12-2017 Hard Hat Diver Authentication Interface Message Text Call from [facility] that pt presented there in labor. [facility] plan of care and ACOGs faxed by Toan Chen. Provided after hours MFM number provided. Normal [facility] Group B Strep Cultureon 10-16 Group B Strep Culture Group B Strep Cult ure: No Group B Streptococci isolated. Source: VAG Collected: 11/07/17 09:00 Site: Vaginal/Rectal Received : 11/07/17 22:01Group B Strep Culture FINAL 11/10/17 08:34 No Group B Streptococci isolated. [facility] Comment on above: Performed By: #### G [facility] ####[address] [phone] Progress Noteon 11-07-2017 Hard Hat Diver Authentication Interface Message Text Routine VisitSubjective: Zuleika Villalta is being seen today for her obstetrical visit. She is at 34r1lmlfeujsfw. Patient reports occasional nausea. No emesis. She [...] Serial growth ultrasounds every 4 weeks.DELIVERY PLANHospital: [facility] HospitalInduction at 39 weeksGBS culture: collected and [...] OB visit and BPP.Oksana Amado MD Normal [facility] Progress Noteon 10-24-2017 Hard Hat Diver Authentication Interface Message Text Routine VisitSubjective: Zuleika [...] Serial growth ultrasounds every 4 weeks.DELIVERY PLANHospital: [facility] HospitalInduction at 39 weeksGBS culture:Contraception: Considering LARC [...] spent counseling and coordinating care.Marco Antonio Antonio, Normal [facility] Progress Noteon 10-15-2017 Hard Hat Diver Authentication Interface Message Text Ped selection made. Updated prenatals Normal [facility] Progress Noteon 10-08-2017 Hard Hat Diver Authentication Interface Message Text Thank you for [...] size. There was a patent foramen ovale, mbqhnzjft-wd-pxou shunt.Tricuspid valve:Normal tricuspid valve. There was normal [...] fetuses and in fetuses with CHD and sldntcrqhluxd15c01, the ratio being below 0.3 )Impression and recommendations.1) Abnormal 3-vessel view, ascending aorta was moderately dilated. 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 thymic thoracic ratio (TT-ratio)=0.1 ( TT-ratio 0.44 in normal fetuses and in fetuses with CHD and koxatnqoajwqf36e70, the ratio being below 0.3 )5) Normal [...] treatments, follow up fetalechocardiograms and follow ups.10) [place] Echocardiogram prior to the discharge from the nursery or earlier ifcardiac condition/status changes in any way. follow up and treatmentshould be determined on the basis of the findings on the initial echocardiogram.Counseling and/or coordination of care was greater than 35 minutes which is morethan 50% of the total time of 60 minutes spent on the encounter. Normal [facility] Hard Hat Diver Authentication Interface Message Text Initial VisitSubjective: Zuleika [...] related to Penicillin-not sure of reaction;was an at the timeof reaction Sulfa Antibiotics SwellingDenies [...] Serial growth ultrasounds every 4 weeks.DELIV[facility] PLANHospital: [facility]Induction at 39 weeksGBS culture:Contraception:TDAP recommended Constipation [...] weeks for OB visit and BPP in [place].Oksana Amado MD Normal [facility] Cytogenomic Microarray Nivia sis of Bloodon 09-10-2017 Cytogenomic Microarray Analysis of Blood SEE BELOW Normal [facility] Comment on above: Result Comment: SPEC IMEN: BLOODCLINICAL INFORMATION: Learning disability[F81.9]TEST: CYTOGENOMIC MICROARRAY ANALYSISRESULT SUMMARY:Normal femaleNOMENCLATURE:arr(1-22,X)e6PHXGJQPVBKRXDN & COMMENTS:The cytogenomics microarray analysis indicated no [...] whole genome microarray analysis was performed the FDA-clearedTeamVisibility(R) Dx platform, which contains approximately 2.7million markers, including 1,953,246 unique non-polymorphic copy numberprobes and 743,304 single nucleotide polymorphism (SNP) probes. Thegenome-wide functional resolution of this assay is approximately 25 kbfor deletions and 50 kb for duplications. This microarray andassociated software (Chromosome Analysis Suite Dx) were manufactured [employer] and used by the [facility]etics [facility]osticsLabor[facility] of [facility] for the purpose ofidentifying DNA copy [...] further information regarding intendeduse and limitations, see [email or web address].Note: The Cytogenetics Laboratory has this patient's blood [...] for additional testing. 09/19/2017 BIGG GARCIA, PH.D., [facility], [facility] 09/19/2017 Performed By: #### M CRY1 ####[address] [phone] MRI (SINGLE)on 018 MRI (SINGLE) MRI (SINGLE)CL [...] COrrelatewith Obstetric ultrasound evaluation. If needed post right upper quadrantultrasound can be considered.5. L4/5 mild disc bulge in the maternal spine without significant canal orforaminal stenosis.This report has been created using voice recognition software. It may containminor errors which are inherent in voice recognition technologySigned by: Dr. AJ CAMILO at 09/10/2017 10:21 Normal [facility] Progress Noteon 09-10-2017 Hard Hat Diver Authentication Interface Message Text The total patient time of the visit was 15 minutes, of which greater than 50% of the time was spent counseling and coordinating care. Normal [facility] Auto Diffon 09-03-2017 Basophils Auto #/vol (Bld) 0.1 E3/mcL Normal 0.0-0.2 [facility] Comment on above: Order Comment: Order Added by Discern Expert. Performed By: #### 2 [id number] ####KADEN TnmIqgi3678 [place] [address] Basophils/100 WBC Auto (Bld) 0.5 % Normal 0.0-2.0 [facility] Comment on above: Order Comment: Order Added by Discern Expert. Performed By: #### 2 488071 ####KADEN CotZlhe8488 [place] [address] Eos Absolute 0.0 E3/mcL Normal 0.0-0.7 [facility] Comment on above: Order Comment: Order Added by Discern Expert. Performed By: #### 2 895009 ####KADEN HxxDfrh1201 [place] [address] Eosinophils/100 leukocytes 0.4 % Normal 0.0-11.0 [facility] Comment on above: Order Comment: Order Added by Discern Expert. Performed By: #### 2 913071 ####KADEN Luceroo[address]25 [place] [address] Lymphocytes 1.3 E3/mcL Normal 1.2-3.4 [facility] Comment on above: Order Comment: Order Added by Discern Expert. Performed By: #### 2 674361 ####KADEN [address] [place] [address] Lymphocytes/100 leukocytes 13.1 % Low 20.0-55.0 [facility] Comment on above: Order Comment: Order Added by Discern Expert. Performed By: #### 2 706720 ####KADEN [address] [place] [address] [place] Absolute 0.4 E3/mcL Normal 0.0-0.7 [facility] Comment on above: Order Comment: Order Added by Discern Expert. Performed By: #### 2 223295 ####KADEN [address] [place] [address] Monocytes/100 leukocytes 4.3 % Normal 0.0-10.0 [facility] Comment on above: Order Comment: Order Added by Discern Expert. Performed By: #### 2 635339 ####KADEN [address] [place] [address] Neutro Absolute 8.4 E3/mcL High 1.4-6.5 [facility] Comment on above: Order Comment: Order Added by Discern Expert. Performed By: #### 2 910892 ####KADEN [address] [place] [address] Neutro Auto 81.7 % High 37.0-75.0 [facility] Comment on above: Order Comment: Order Added by Discern Expert. Performed By: #### 2 542492 ####KADEN [address] [place] [address] CBC w/ Auto Diffon 8 Erythrocyte distribution width Auto Ratio (RBC) 13.1 % Normal 11.5-14.5 [facility] Comment on above: Performed By: #### 2 788424 ####KADEN [address] [place] [address] Erythrocytes (RBC) 3.90 E6/mcL Normal 3.90-5.40 [facility] Comment on above: Performed By: #### 2 366825 ####KADEN [address] [place] [address] Hematocrit (HCT) 34.7 % Low 36.0-48.0 [facility] Comment on above: Performed By: #### 2 539017 ####KADEN FsjOsig8037 [place] [address] Hemoglobin mass conc (Bld) 11.8 g/dL Low 12.0-16.0 [facility] Comment on above: Performed By: #### 2 375745 ####KADEN QjfXxta5860 [place] [address] MCH 30.3 pg Normal 27.0-31.0 [facility] Comment on above: Performed By: #### 2 108886 ####KADEN PdvMcow2576 [place] [address] MCHC mass conc (RBC) 34.2 g/dL Normal 33.0-37.[address] [facility] Comment on above: Performed By: #### 2 419508 ####KADEN YyzVvjc8358 [place] [address] MCV 88.8 fL Normal 78.0-100.0 [facility] Comment on above: Performed By: #### 2 481820 ####KADEN XumQvbx2544 [place] [address] Platelet mean volume (PMV) 7.3 fL Low 7.4-11.0 [facility] Comment on above: Performed By: #### 2 651499 ####KADEN [address]airdVqwRokk3441 [place] [address] Platelets 218 E3/mcL Normal 130-400 [facility] Comment on above: Performed By: #### 2 005193 ####KADEN BairdAcgHnvr3331 [place] [address] WBC (Leukocytes) 10.2 E3/mcL Normal 3.6-11.0 [facility] Comment on above: Performed By: #### 2 856792 ####KADENMorelia BairdNmwRzte0315 [place] [address] Gest Scr Glu 1 Hron 09-04-19 18 Glucose mass conc 113 mg/dL Normal 70-140 [facility] Comment on above: Performed By: #### 2 466199 ####KADEN PbcEaxe6745 [place] [address] FISH Probeon 08-13-2017 Protein mass conc SEE BELOW Normal [facility] Comment on above: Result Comment: SPEC IMEN: BLOOD - [id number] INFORMATION:TEST: FISH Analysis of the DiGeorge/VCFS Region [...] Metaphase images: 2The Vysis LSI DARREN Spectrum Empire Probe contains the DARREN gene (3'non-coding region of TUPLE1, F35E373, and F30Q5607. The Vysis LSI ARSAspectrum Green Probe includes [...] characteristics determinedby the Cytogenetics Laboratory of [facility]. It hasnot been cleared or approved [...] J Med Barbara 66:[id number],1995. BIGG GARCIA, PH.D., [facility], [facility] 08/16/2017 Performed By: #### F MARIA ####[facility] of [address] [phone] Progress Noteon 08-13-2017 Hard Hat Diver Authentication Interface Message Text Met with patient and FOB Aaron BranchKelsi for enlarged aortic root. Medical, [...] understanding of findingsWork History: unemployed. Information on [facility] services given.Consent to share information with [facility] team, OB and pipe organ mechanic signed. 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 Currently with Dr. Shekhar Dyson.Tread Builder is undecided. ACHP list provided and discussed [...] spent counseling and coordinating care. Normal [facility] Hard Hat Diver Authentication Interface Message Text Thank you for [...] size. There was a patent foramen ovale, owltntrcc-rs-pusj shunt.Tricuspid valve:Normal tricuspid valve. There was normal [...] minutes spent on the encounter. Normal [facility] Progress Noteon 07-18-2017 Hard Hat Diver Authentication Interface Message Text [facility] MATERNAL- MEDICINE CONSULTReferring/Requestin g Provider: VINI FranklinCP: EXTERNAL PROVIDERINDICATION FOR CONSULT: maternal history of PDA, repaired as a baby and castrorot from complications with PDAHISTORY OF PRESENT ILLNESS:Patient [...] no palpitations. She usually doesnot see a community product specialist, but did have a recent echo due [...] Stroke Maternal Grandmother Heart Disease Maternal Grandmother NE Clotting Disorder Maternal Grandfather Miscarriages / Stillbirths [...] related to Penicillin-not sure of reaction;was an at the timeof reaction Sulfa Antibiotics SwellingREVIEW [...] as a child 07/18/2017 Consider evaluation with psych social worker to assess for any needs duringpregnancy or after. Will have genetic consult with [facility] evaluation. cardiac anomaly complicating , antepartum 07/18/2017 Dilated aortic root seen on ultrasound along with large umbilical cordvarix, dolichocephaly DW Dr. Zazueta, verbal order to refer to [facility] Will be scheduled with pediatric cardiology. Also, patient and family members have a history of learning disabilities,including an individual learning plan in school. She will talk to her familymembers and bring as much information as is available for her genetics consult.She has transportation to [place] and is [facility].The total patient time of the visit was 30 minutes, of which was greater than50% of the time was spent counseling and coordinating care. Normal [facility] IGP W/hpv Rfx [id number] 05-07 Diagnosis: See Ref Lab Report Normal [facility] Comment on above: Order Comment: Thin Prep. Performed By: #### 2 [id number] ####KADEN [address] [place] [address] C Urineon 05-03-2017 C Urine Final Report: Normal skin alonso isolated Normal [facility] Comment on above: Performed By: #### 2 525164 ####KADEN UlqMvdr8546 [place] [address] RPRon 05-03-2017 RPR Ql Non-Reactive Normal Non-Reacti ve [facility] Comment on above: Performed By: #### 2 029881 ####KADEN MykFqth8535 [place] [address] Hep Bs Agon 05-02-2017 BSA (Body Surface Area) Negative Normal Negative [facility] Comment on above: Result Comment: Perf ormed At: [facility] [address] [id number] Vincent PhD Ph:[phone] Performed By: #### 2 928764 ####KADENMorelia BairdAltCnxc1224 [place] [address] ABO/Rh Echoon 05-01-2017 ABO/Rh E Interp... Positive Normal [facility] Comment on above: Performed By: #### 2 054190 ####KADEN YurLhxp6213 [place] [address] Antibody Screen Cap...on Screen Interp... Negative Normal [facility] Comment on above: Performed By: #### 2 477040 ####KADENMorelia BairdAkzZhzi0991 [place] [address] Auto Diffon 05-01-2017 Basophils Auto #/vol (Bld) 0.0 E3/mcL Normal 0.0-0.2 [facility] Comment on above: Order Comment: Order Added by Discern Expert. Performed By: #### 2 908050 ####KADEN Urinalysis Manual Bccgitdgwj0348 [place] [address] Basophils/100 WBC Auto (Bld) 0.4 % Normal 0.0-2.0 [facility] Comment on above: Order Comment: Order Added by Discern Expert. Performed By: #### 2 479372 ####KADEN Urinalysis Manual [address] [place] [address] Eos Absolute 0.1 E3/mcL Normal 0.0-0.7 [facility] Comment on above: Order Comment: Order Added by Discern Expert. Performed By: #### 2 215078 ####KADEN Urinalysis Manual [address] [place] [address] Eosinophils/100 leukocytes 0.7 % Normal 0.0-11.0 [facility] Comment on above: Order Comment: Order Added by Discern Expert. Performed By: #### 2 123622 ####KADEN Urinalysis Manual [address] [place] [address] Lymphocytes 1.8 E3/mcL Normal 1.2-3.4 [facility] Comment on above: Order Comment: Order Added by Discern Expert. Performed By: #### 2 489233 ####KADEN Urinalysis Manual Zl[address] [place] [address] Lymphocytes/100 leukocytes 17.1 % Low 20.0-55.0 [facility] Comment on above: Order Comment: Order Added by Discern Expert. Performed By: #### 2 792376 ####KADEN Urinalysis Manual Ijl[address]te[address] [place] [address] [place] Absolute 0.5 E3/mcL Normal 0.0-0.7 [facility] Comment on above: Order Comment: Order Added by Discern Expert. Performed By: #### 2 193209 ####KADEN Urinalysis Manual K[address] [place] [address] Monocytes/100 leukocytes 5.0 % Normal 0.0-10.0 [facility] Comment on above: Order Comment: Order Added by Discern Expert. Performed By: #### 2 158092 ####KADEN Urinalysis Manual [address] [place] [address] Neutro Absolute 8.0 E3/mcL High 1.4-6.5 [facility] Comment on above: Order Comment: Order Added by Discern Expert. Performed By: #### 2 868255 ####KADEN Urinalysis Manual Gtbjdkesth7140 [place] [address] Neutro Auto 76.8 % High 37.0-75.0 [facility] Comment on above: Order Comment: Order Added by Discern Expert. Performed By: #### 2 489532 ####KADEN Urinalysis Manual Dggqxodbtf7895 [place] [address] CBC w/ Auto Diffon 7 Erythrocyte distribution width Auto Ratio (RBC) 15.2 % High 11.5-14.5 [facility] Comment on above: Performed By: #### 2 226956 ####KADEN Urinalysis Manual [address] [place] [address] Erythrocytes (RBC) 4.90 E6/mcL Normal 3.90-5.40 [facility] Comment on above: Performed By: #### 2 515643 ####KADEN Urinalysis Manual [address] [place] [address] Hematocrit (HCT) 41.1 % Normal 36.0-48.0 [facility] Comment on above: Performed By: #### 2 018997 ####KADEN Urinalysis Manual [address]sumxmt[address] [place] [address] Hemoglobin mass conc (Bld) 13.5 g/dL Normal 12.0-16.0 [facility] Comment on above: Performed By: #### 2 418459 ####KADEN Urinalysis Manual [address] [place] [address] MCH 27.5 pg Normal 27.0-31.0 [facility] Comment on above: Performed By: #### 2 572365 ####KADEN Urinalysis Manual Xyv[address] [place] [address] MCHC mass conc (RBC) 32.8 g/dL Low 33.0-37.[address] [facility] Comment on above: Performed By: #### 2 621424 ####KADEN Urinalysis Manual X[address] [place] [address] MCV 83.9 fL Normal 78.0-100.0 [facility] Comment on above: Performed By: #### 2 353038 ####KADEN Urinalysis Manual [address]vus[address] [place] [address] Platelet mean volume (PMV) 8.0 fL Normal 7.4-11.0 [facility] Comment on above: Performed By: #### 2 597013 ####KADEN Urinalysis Manual [address] [place] [address] Platelets 246 E3/mcL Normal 130-400 [facility] Comment on above: Performed By: #### 2 720250 ####KADEN Urinalysis Manual Coc[address]bp[address] [place], [place] [address] WBC (Leukocytes) 10.4 E3/mcL Normal 3.6-11.0 [facility] Comment on above: Performed By: #### 2 577384 ####[facility] [place] [address] Chlamydia GC by PCRon 2016 Chlamydia by PCR. Not Detected Normal Not Detected [facility] Comment on above: Result Comment: Xper t CT/NG Assay performance has not been evaluated in patients less than 14 years of age. Performed By: #### 2 160564 ####KADEN DukLthf6095 [place] [address] Gonorrhoeae by PCR Not Detected Normal Not Detected [facility] Comment on above: Result Comment: Xper t CT/NG Assay performance has not been evaluated in patients less than 14 years of age. Performed By: #### 2 407633 ####KADEN YoqJadv3301 [place] [address] HIV-1/2 Ag/Abon 05-01-2017 HIV-1/2 Ag/Ab Non-Reactive Normal Non-Reacti ve [facility] Comment on above: Performed By: #### 2 428279 ####KADEN [place] [address] Rubella IgG Lvlon 05-01-2017 Rubella IgG Lvl 50.8 (POS) Normal [facility] Comment on above: Result Comment: <10I U/ml NON REACTIVE: NOT [id number] IU/ml RUBELLA SPECIFIC AB PRESENT, EVALUATEFURTHER TO DETERMINE IMMUNE STATUS >15 IU/ml REACTIVE, IMMUNE Performed By: #### 2 721494 ####KADEN RpmMjhs7325 [place] [address] Auto Diffon 04-22-2017 Basophils Auto #/vol (Bld) 0.1 E3/mcL Normal 0.0-0.2 [facility] Comment on above: Order Comment: Order Added by Discern Expert. Performed By: #### 2 077790 ####KADEN Urinalysis Manual [address] [place] [address] Basophils/100 WBC Auto (Bld) 0.6 % Normal 0.0-2.0 [facility] Comment on above: Order Comment: Order Added by Discern Expert. Performed By: #### 2 445453 ####KADEN Urinalysis Manual [address] [address] Eos Absolute 0.0 E3/mcL Normal 0.0-0.7 [facility] Comment on above: Order Comment: Order Added by Discern Expert. Performed By: #### 2 633764 ####KADEN Urinalysis Manual [address] [place] [address] Eosinophils/100 leukocytes 0.2 % Normal 0.0-11.0 [facility] Comment on above: Order Comment: Order Added by Discern Expert. Performed By: #### 2 265676 ####KADEN Urinalysis Manual [address] [address] Lymphocytes 1.5 E3/mcL Normal 1.2-3.4 [facility] Comment on above: Order Comment: Order Added by Discern Expert. Performed By: #### 2 577577 ####KADEN Urinalysis Manual Arxznjitpd[address] [place] [address] Lymphocytes/100 leukocytes 10.8 % Low 20.0-55.0 [facility] Comment on above: Order Comment: Order Added by Discern Expert. Performed By: #### 2 901479 ####KADEN Urinalysis Manual I[address]mybukyd[address] [place] [address] [place] Absolute 0.6 E3/mcL Normal 0.0-0.7 [facility] Comment on above: Order Comment: Order Added by Discern Expert. Performed By: #### 2 149022 ####KADEN Urinalysis Manual Adgrfqllfw4341 [place] [address] Monocytes/100 leukocytes 4.4 % Normal 0.0-10.0 [facility] Comment on above: Order Comment: Order Added by Discern Expert. Performed By: #### 2 475080 ####KADEN Urinalysis Manual Pokldkniit5062 [place] [address] Neutro Absolute 11.3 E3/mcL High 1.4-6.5 [facility] Comment on above: Order Comment: Order Added by Discern Expert. Performed By: #### 2 834065 ####KADEN Urinalysis Manual [address] [place] [address] Neutro Auto 84.0 % High 37.0-75.0 [facility] Comment on above: Order Comment: Order Added by Discern Expert. Performed By: #### 2 560103 ####KADEN Urinalysis Manual [address] [place] [address] BMPon 04-22-2017 BUN/Creatinine Ratio Unable to calc Normal 5.4-30.0 [facility] Comment on above: Performed By: #### 2 992961 ####KADEN Urinalysis Manual [address] [place] [address] Creatinine mg/dL Low 0.6-1.3 [facility] Comment on above: Performed By: #### 2 962704 ####KADEN Urinalysis Manual [address] [place] [address] Urea nitrogen 7 mg/dL Normal 7-18 [facility] Comment on above: Performed By: #### 2 826890 ####KADEN Urinalysis Manual [address] [place] [address] Calcium 9.6 mg/dL Normal 8.4-10.2 [facility] Comment on above: Performed By: #### 2 242910 ####KADEN Urinalysis Manual [address] [place] [address] Chloride 103 mmol/L Normal 98-107 [facility] Comment on above: Performed By: #### 2 407004 ####KADEN Urinalysis Manual [address]kt[address] [place] [address] CO2 21.7 mmol/L Low 24.0-30.0 [facility] Comment on above: Performed By: #### 2 850766 ####KADEN Urinalysis Manual [address]aiqju5849 [place] [address] Glucose mass conc 89 mg/dL Normal 70-99 [facility] Comment on above: Performed By: #### 2 462105 ####KADEN Urinalysis Manual Tnfmhckgdx7880 [place] [address] Potassium molar conc 3.6 mmol/L Normal 3.5-5.[address] [facility] Comment on above: Performed By: #### 2 934693 ####KADEN Urinalysis Manual Bgggfujyte8977 [place] [address] Sodium 136 mmol/L Normal 136-145 [facility] Comment on above: Performed By: #### 2 554952 ####KADEN Urinalysis Manual [address] [place] [address] CBC w/ Auto Diffon 7 Erythrocyte distribution width Auto Ratio (RBC) 14.8 % High 11.5-14.5 [facility] Comment on above: Performed By: #### 2 227265 ####KADEN Urinalysis Manual [address]vn[address] [place] [address] Erythrocytes (RBC) 4.96 E6/mcL Normal 3.90-5.40 [facility] Comment on above: Performed By: #### 2 703216 ####KADEN Urinalysis Manual Kfwt[address]uyvw9723 [place] [address] Hematocrit (HCT) 40.9 % Normal 36.0-48.0 [facility] Comment on above: Performed By: #### 2 881918 ####KADEN Urinalysis Manual Atjekypjtv0475 [place] [address] Hemoglobin mass conc (Bld) 13.5 g/dL Normal 12.0-16.0 [facility] Comment on above: Performed By: #### 2 359678 ####KADEN Urinalysis Manual Pvbukvqjfx4573 [place] [address] MCH 27.2 pg Normal 27.0-31.0 [facility] Comment on above: Performed By: #### 2 844960 ####KADEN Urinalysis Manual Xjgtzsxyat0963 [place] [address] MCHC mass conc (RBC) 33.0 g/dL Normal 33.0-37.[address] [facility] Comment on above: Performed By: #### 2 244420 ####KADEN Urinalysis Manual [address] [place] [address] MCV 82.4 fL Normal 78.0-100.0 [facility] Comment on above: Performed By: #### 2 798856 ####KADEN Urinalysis Manual [address] [place] [address] Platelet mean volume (PMV) 8.0 fL Normal 7.4-11.0 [facility] Comment on above: Performed By: #### 2 031080 ####KADEN Urinalysis Manual [address] [place] [address] Platelets 237 E3/mcL Normal 130-400 [facility] Comment on above: Performed By: #### 2 988338 ####KADEN Urinalysis Manual [id number] [place] [address] WBC (Leukocytes) 13.5 E3/mcL High 3.6-11.0 [facility] Comment on above: Performed By: #### 2 [id number] ####KADEN Urinalysis Manual Ydhfzzkwnk8[address] [place] [address] UA Completeon 04-22-2017 UA Blood Negative Normal Negative [facility] Comment on above: Performed By: #### 2 997643 ####KADEN Urinalysis Manual Tnrinycayd7627[address] [place] [address] UA Ascorbic Acid 40 mg/dL High <=19 [facility] Comment on above: Performed By: #### 2 866648 ####KADEN Urinalysis Manual Zisizgljxs9[address] [place], [place] [address] UA Bacteria 3+ /HPF Abnormal None [facility] Comment on above: Performed By: #### 2 041228 ####KADEN Urinalysis Manual Ayrzillagr[address] [place] [address] UA Clarity SltCloudy Abnormal Clear [facility] Comment on above: Performed By: #### 2 430178 ####KADEN Urinalysis Manual Ewccfspsfe7[address] [place] [address] 27108 UA Leuk Est Negative Normal Negative [facility] Comment on above: Performed By: #### 2 657961 ####KADEN Urinalysis Manual Rvqkbmtdri[address] [place] [address] 48296 UA Mucous Few Abnormal Trace [facility] Comment on above: Performed By: #### 2 572647 ####KADEN Urinalysis Manual Lxbltzhuqc7870[address] [place] [address] UA Nitrite Negative Normal Negative [facility] Comment on above: Performed By: #### 2 278065 ####KADEN Urinalysis Manual Zdbeqfpogt[address] [place] [address] UA pH 8.0 Normal 4.6-8.0 [facility] Comment on above: Performed By: #### 2 285495 ####KADEN Urinalysis Manual Skwjshleqp[address] [place] [address] UA Protein Negative Normal Negative [facility] Comment on above: Performed By: #### 2 722149 ####KADEN Urinalysis Manual Otobpirxgm[address] [place] [address] UA Spec Grav 1.012 Normal 1.003-1.[address] [facility] Comment on above: Performed By: #### 2 648178 ####KADEN Urinalysis Manual Vynrpbwnkc[address] [place] [address] 500[address] UA Squam Epithelial 0-5 Normal 0-5 [facility] Comment on above: Performed By: #### 2 074402 ####KADEN Urinalysis Manual Tamjfpqrot448[address] [place] [address] 022[address] UA Urobilinogen Negative Normal [facility] Comment on above: Performed By: #### 2 777169 ####KADEN Urinalysis Manual Dckfzszwwj[address] [place] [address] 65352 UA WBC 0-5 Normal 0-5 [facility] Comment on above: Performed By: #### 2 985902 ####KADEN Urinalysis Manual Wireeemikl374293 [address] [place], [place] [address] Urine, color Yellow Normal Yellow [facility] Comment on above: Performed By: #### 2 044697 ####KADEN Urinalysis Manual Aqinivytmv3219 [place] [address] Urine, glucose Negative Normal Negative [facility] Comment on above: Performed By: #### 2 458420 ####KADEN Urinalysis Manual Ravtfpdbog4496 [place] [address] Urine, ketones presence 1+ Abnormal Negative [facility] Comment on above: Performed By: #### 2 392831 ####KADEN Urinalysis Manual Yxijomcili8515[address] [place] [address] Urine, urobilinogen Negative Normal Negative [facility] Comment on above: Performed By: #### 2 271023 ####KADEN Urinalysis Manual Yhwxfqhsli294476 [place] [address] eGFRon 04-22-2017 eGFR AA >[address] [facility] Comment on above: Order Comment: Order added by Discern Expert. Performed By: #### 2 617875 ####KADEN Urinalysis Manual Ahdazfzpel157[address] [place] [address] eGFR (non-black) mL/min/{1.73_m2} Normal [facility] Comment on above: Order Comment: Order added by Discern Expert. Performed By: #### 2 347220 ####KADEN Urinalysis Manual Ggshlocklx5979[address] [place] [address] C Urineon 04-20-2017 C Urine Final Report: Normal skin alonso isolated Normal [facility] Comment on above: Performed By: #### 2 712364 ####KADEN Urinalysis Manual Pvspbbhjdp[address] [place] [address] BMPon 04-18-2017 BUN/Creatinine Ratio 15.0 ratio Normal 5.4-30.[address] [facility] Comment on above: Performed By: #### 2 846570 ####KADEN TcoUfwk8068 [place] [address] Creatinine 0.6 mg/dL Normal 0.6-1.3 [facility] Comment on above: Performed By: #### 2 408307 ####KADEN UvvPgio8439 [place] [address] Urea nitrogen 9 mg/dL Normal 7-18 [facility] Comment on above: Performed By: #### 2 872348 ####KADEN LrwAgvq3599 [place] [address] Calcium 9.6 mg/dL Normal 8.4-10.2 [facility] Comment on above: Performed By: #### 2 803823 ####KADEN JekWzrq5631 [place] [address] Chloride 102 mmol/L Normal 98-107 [facility] Comment on above: Performed By: #### 2 906381 ####KADEN DgsCvky2640 [place] [address] CO2 23.3 mmol/L Low 24.0-30.0 [facility] Comment on above: Performed By: #### 2 371171 ####KADEN MxcGyzn4839 [place] [address] Glucose mass conc 93 mg/dL Normal 70-99 [facility] Comment on above: Performed By: #### 2 761566 ####KADEN XwzPzcs4239 [place] [address] Potassium molar conc 3.5 mmol/L Normal 3.5-5.[address] [facility] Comment on above: Performed By: #### 2 556989 ####KADEN VrmBxxg2692 [place] [address] Sodium 136 mmol/L Normal 136-145 [facility] Comment on above: Performed By: #### 2 636366 ####KADEN RbbMopt8750 [place] [address] UA Completeon 04-18-2017 UA Blood Negative Normal Negative [facility] Comment on above: Performed By: #### 2 336757 ####KADEN Urinalysis Manual Glcizwyuul4215 [place] [address] UA Amorph Chastity 2+ /HPF Abnormal None [facility] Comment on above: Performed By: #### 2 096811 ####KADEN Urinalysis Manual Kdwiybqgfl0023 [place] [address] UA Ascorbic Acid 40 mg/dL High <=19 [facility] Comment on above: Performed By: #### 2 024745 ####KADEN Urinalysis Manual Tddioaicqo7732[address] [place] [address] UA Clarity Cloudy Abnormal Clear [facility] Comment on above: Performed By: #### 2 603820 ####KADEN Urinalysis Manual Ajtzlcinjv176[address] [place] [address] UA Leuk Est Negative Normal Negative [facility] Comment on above: Performed By: #### 2 645457 ####KADEN Urinalysis Manual Vffrunrhad8027[address] [place] [address] UA Mucous Trace Abnormal Trace [facility] Comment on above: Performed By: #### 2 167844 ####KADEN Urinalysis Manual Gcnnvtkndt0834[address] [place] [address] UA Nitrite Negative Normal Negative [facility] Comment on above: Performed By: #### 2 757819 ####KADEN Urinalysis Manual Nopeqfevjz[address] [place] [address] UA pH 7.0 Normal 4.6-8.0 [facility] Comment on above: Performed By: #### 2 431779 ####KADEN Urinalysis Manual Impsumrngg211[address] [place] [address] UA Protein Negative Normal Negative [facility] Comment on above: Performed By: #### 2 634552 ####KADEN Urinalysis Manual Vwqdfyxhpb[address] [place] [address] UA Spec Grav 1.018 Normal 1.003-1.[address] [facility] Comment on above: Performed By: #### 2 264657 ####KADEN Urinalysis Manual Nqhtudajec40[address] [place] [address] UA Squam Epithelial 0-5 Normal 0-5 [facility] Comment on above: Performed By: #### 2 380425 ####KADEN Urinalysis Manual Dxeiogorfu272[address] [place] [address] UA Urobilinogen Negative Normal [facility] Comment on above: Performed By: #### 2 299162 ####KADEN Urinalysis Manual Vnasruljlq4533[address] [place] [address] Urine, color Yellow Normal Yellow [facility] Comment on above: Performed By: #### 2 977730 ####KADEN Urinalysis Manual Cwcwckpkkm2979[address] [place] [address] Urine, glucose Negative Normal Negative [facility] Comment on above: Performed By: #### 2 245247 ####KADEN [place] [address] Urine, ketones presence 2+ Abnormal Negative [facility] Comment on above: Performed By: #### 2 090334 ####KADEN Urinalysis Manual Nrutiwgqrz9[address] [place] [address] Urine, urobilinogen Negative Normal Negative [facility] Comment on above: Performed By: #### 2 437722 ####KADEN [place] [address] eGFRon 04-18-2017 eGFR (non-black) mL/min/{1.73_m2} Normal [facility] Comment on above: Order Comment: Order added by Discern Expert. Performed By: #### 1 [id number] ####KADEN VkwWoey8938 [place] [address] eGFR AA >[address] [facility] Comment on above: Order Comment: Order added by Discern Expert. Performed By: #### 1 5697820 ####KADEN UuoZztu3922 [place] [address] Auto Diffon 04-11-2017 Basophils Auto #/vol (Bld) 0.1 E3/mcL Normal 0.0-0.2 [facility] Comment on above: Order Comment: Order Added by Discern Expert. Performed By: #### 2 152826 ####KADEN IujNrju9109 [place] [address] Basophils/100 WBC Auto (Bld) 0.7 % Normal 0.0-2.0 [facility] Comment on above: Order Comment: Order Added by Discern Expert. Performed By: #### 2 031921 ####KADENMorelia BairdYbvGwum4223 [place] [address] Eos Absolute 0.0 E3/mcL Normal 0.0-0.7 [facility] Comment on above: Order Comment: Order Added by Discern Expert. Performed By: #### 2 384035 ####KADEN BairdSlyHati0417 [place] [address] Eosinophils/100 leukocytes 0.1 % Normal 0.0-11.0 [facility] Comment on above: Order Comment: Order Added by Discern Expert. Performed By: #### 2 547266 ####KADEN Luceroo1025 [place] [address] Lymphocytes 1.5 E3/mcL Normal 1.2-3.4 [facility] Comment on above: Order Comment: Order Added by Discern Expert. Performed By: #### 2 286663 ####KADEN Luceroo1025 [place] [address] Lymphocytes/100 leukocytes 17.2 % Low 20.0-55.0 [facility] Comment on above: Order Comment: Order Added by Discern Expert. Performed By: #### 2 999404 ####KADEN Luceroo1025 [place] [address] [place] Absolute 0.6 E3/mcL Normal 0.0-0.7 [facility] Comment on above: Order Comment: Order Added by Discern Expert. Performed By: #### 2 739520 ####KADEN BairdKjrNbrt2913 [place] [address] Monocytes/100 leukocytes 6.6 % Normal 0.0-10.0 [facility] Comment on above: Order Comment: Order Added by Discern Expert. Performed By: #### 2 042392 ####KADEN Luceroo1025 [place] [address] Neutro Absolute 6.7 E3/mcL High 1.4-6.5 [facility] Comment on above: Order Comment: Order Added by Discern Expert. Performed By: #### 2 137342 ####KADEN BairdEtjZhvu5195 [place] [address] Neutro Auto 75.4 % High 37.0-75.0 [facility] Comment on above: Order Comment: Order Added by Discern Expert. Performed By: #### 2 175798 ####KADEN BairdMruQykz2416 [place] [address] BMPon 04-11-2017 BUN/Creatinine Ratio 12.9 ratio Normal 5.4-30.[address] [facility] Comment on above: Performed By: #### 2 547340 ####KADEN ZltUhnq5855 [place] [address] Creatinine 0.7 mg/dL Normal 0.6-1.3 [facility] Comment on above: Performed By: #### 2 694938 ####KADEN ClaRera3192 [place] [address] Urea nitrogen 9 mg/dL Normal 7-18 [facility] Comment on above: Performed By: #### 2 478012 ####KADEN IkrNbyz3572 [place] [address] Calcium 9.5 mg/dL Normal 8.4-10.2 [facility] Comment on above: Performed By: #### 2 131035 ####KADEN QljZiyv2820 [place] [address] Chloride 105 mmol/L Normal 98-107 [facility] Comment on above: Performed By: #### 2 809337 ####KADEN PrlFsgd2654 [place] [address] CO2 22.5 mmol/L Low 24.0-30.0 [facility] Comment on above: Performed By: #### 2 432065 ####KADEN PbjAfyu8673 [place] [address] Glucose mass conc 92 mg/dL Normal 70-99 [facility] Comment on above: Performed By: #### 2 836209 ####KADEN OgcXvfh0317 [place] [address] Potassium molar conc 3.6 mmol/L Normal 3.5-5.[address] [facility] Comment on above: Performed By: #### 2 188714 ####KADEN MeqSpyv5071 [place] [address] Sodium 137 mmol/L Normal 136-145 [facility] Comment on above: Performed By: #### 2 673125 ####KADEN UpcOlot5388 [place] [address] BhCG Quanton 04-11-2017 Beta hCG Qnt 8564.0 mIU/m Normal [facility] Comment on above: Result Comment: FEMA LE (NON-) & MALE <3 BORDERLINE 3 - 5 SUGGEST REPEAT TESTING FEMALE () 1 D - 1 WK 5 - 50 1 - 2 WK 50 - 500 2 - 3 WK 100 - 5000 3 - 4 WK 500 - 65713 4 - 5 WK 1000 - 73689 5 - 6 WK 22975 - 253459 6 - 8 WK [address] - 973654 2 - 3 [place] [address] - 476240 Performed By: #### 2 784900 ####KADEN BairdWpkLgnm7810 [place] [address] CBC w/ Auto Diffon 7 Erythrocyte distribution width Auto Ratio (RBC) 13.9 % Normal 11.5-14.5 [facility] Comment on above: Performed By: #### 2 586324 ####KADEN BairdIloFicn0125 [place] [address] Erythrocytes (RBC) 4.63 E6/mcL Normal 3.90-5.40 [facility] Comment on above: Performed By: #### 2 841525 ####KADEN BairdIgiWqnn9424 [place] [address] Hematocrit (HCT) 38.2 % Normal 36.0-48.0 [facility] Comment on above: Performed By: #### 2 694202 ####KADEN BairdBctLweo7591 [place] [address] Hemoglobin mass conc (Bld) 12.6 g/dL Normal 12.0-16.0 [facility] Comment on above: Performed By: #### 2 179713 ####KADEN BairdBdlFast2328 [place] [address] MCH 27.2 pg Normal 27.0-31.0 [facility] Comment on above: Performed By: #### 2 867919 ####KADEN RgvWlkr9080 [place] [address] MCHC mass conc (RBC) 33.0 g/dL Normal 33.0-37.[address] [facility] Comment on above: Performed By: #### 2 654521 ####KADEN NunKsnr3038 [place] [address] MCV 82.6 fL Normal 78.0-100.0 [facility] Comment on above: Performed By: #### 2 652185 ####KADEN BairdZlbOdmr3998 [place] [address] Platelet mean volume (PMV) 8.0 fL Normal 7.4-11.0 [facility] Comment on above: Performed By: #### 2 296717 ####KADEN BairdYkwQavi7007 [place] [address] Platelets 233 E3/mcL Normal 130-400 [facility] Comment on above: Performed By: #### 2 880959 ####KADEN Luceroo1025 [place] [address] WBC (Leukocytes) 9.0 E3/mcL Normal 3.6-11.0 [facility] Comment on above: Performed By: #### 2 873563 ####KADEN BairdNvpRekf6574 [place] 96239[address] UA Completeon 04-11-2017 UA Blood Negative Normal Negative [facility] Comment on above: Result Comment: High concentration of Ascorbic Acid present in urine. This may cause False Negative Occ Blood. Review microscopic results and patient's clinical symptoms. Performed By: #### 8 6014452 ####KADEN Urinalysis Automated Mzixjxzpee1535 [place] [address] UA Amorph Chastity 1+ /HPF Abnormal None [facility] Comment on above: Performed By: #### 8 8250666 ####KADEN Urinalysis Automated Qfybbredmv6092 [place] [address] UA Ascorbic Acid 40 mg/dL High <=19 [facility] Comment on above: Performed By: #### 8 2618625 ####KADEN Urinalysis Automated Yknirrhbco4262 [place] [address] UA Bacteria Trace Abnormal None [facility] Comment on above: Performed By: #### 8 8131390 ####KADEN Urinalysis Automated Sqqtecgrgl0360 [place] [address] UA Clarity Cloudy Abnormal Clear [facility] Comment on above: Performed By: #### 8 5816662 ####KADEN Urinalysis Automated Corhzhcheq2853 [place] [address] UA Leuk Est Negative Normal Negative [facility] Comment on above: Performed By: #### 8 6562293 ####KADEN Urinalysis Automated Rzfdzmilof3875 [place] [address] UA Mucous Few Abnormal Trace [facility] Comment on above: Performed By: #### 8 2753806 ####KADEN Urinalysis Automated Xajfjikrsn1309 [place] [address] UA Nitrite Negative Normal Negative [facility] Comment on above: Performed By: #### 8 1477959 ####KADEN Urinalysis Automated Xnrkxfntql1433 [place] [address] UA pH 7.0 Normal 4.6-8.0 [facility] Comment on above: Performed By: #### 8 5332127 ####KADEN Urinalysis Automated Obvicgsxrf[address] [place] [address] UA Protein Negative Normal Negative [facility] Comment on above: Performed By: #### 8 8901558 ####KADEN Urinalysis Automated [address]fj[address]jcwtiw[address] [place] [address] UA Spec Grav 1.025 Normal 1.003-1.[address] [facility] Comment on above: Performed By: #### 8 1104379 ####KADEN Urinalysis Automated Vpuhupiclt3303 [place] [address] UA Squam Epithelial 5-10 Abnormal 0-5 [facility] Comment on above: Performed By: #### 8 3913910 ####KADEN Urinalysis Automated Vvbhuicoor055[address] [place] [address] 80859 UA Urobilinogen 2.0 mg/dL Abnormal [facility] Comment on above: Performed By: #### 8 8673605 ####KADEN Urinalysis Automated Xbzddagvkf1025[address] [place] [address] 21758 Urine, color Yellow Normal Yellow [facility] Comment on above: Performed By: #### 8 0052199 ####KADEN Urinalysis Automated Efwxhwqmyk0647 [place] [address] Urine, erythrocytes 0-3 Normal 0-3 [facility] Comment on above: Performed By: #### 8 7754091 ####KADEN Urinalysis Automated Mnoxkhiwba[address] [place] [address] 12222 Urine, glucose Negative Normal Negative [facility] Comment on above: Performed By: #### 8 8051548 ####KADEN Urinalysis Automated Pwewgnnfyy8466 [place] [address] Urine, ketones presence 2+ Abnormal Negative [facility] Comment on above: Performed By: #### 8 1359932 ####KADEN Urinalysis Automated Vvieukmhrr8414 [place] [address] Urine, urobilinogen Negative Normal Negative [facility] Comment on above: Performed By: #### 8 8046251 ####KADEN Urinalysis Automated Wpxywnolzw[address] [place] [address] eGFRon 04-11-2017 eGFR (non-black) mL/min/{1.73_m2} Normal [facility] Comment on above: Order Comment: Order added by Discern Expert. Performed By: #### 1 5256112 ####KADEN UcoZnoc6431 [place] [address] eGFR AA >[address] [facility] Comment on above: Order Comment: Order added by Discern Expert. Performed By: #### 1 4812009 ####KADEN MjvTwgs3018 [place] [address] U BhCG Qlton 03-20-2017 HCG.beta subunit Qn Negative Normal Neg [facility] Comment on above: Performed By: #### 2 227497 ####KADEN Urinalysis Manual Qlpxleelpf[address] [place] [address] UA Completeon 03-20-2017 UA Blood Negative Normal Negative [facility] Comment on above: Performed By: #### 8 5240231 ####KADEN Urinalysis Automated Evcxxvnlao9[address] [place] [address] UA Amorph Chastity 1+ /HPF Abnormal None [facility] Comment on above: Performed By: #### 8 6309913 ####KADEN Urinalysis Automated Gegxagsiyx1960 [place] [address] UA Bacteria 2+ /HPF Abnormal None [facility] Comment on above: Performed By: #### 8 4338380 ####KADEN Urinalysis Automated Jxfwrnadpu4419 [place] [address] UA Clarity Cloudy Abnormal Clear [facility] Comment on above: Performed By: #### 8 7415144 ####KADEN Urinalysis Automated Tggxegaogb1041 [place] [address] UA Leuk Est 1+ Abnormal Negative [facility] Comment on above: Performed By: #### 8 4080270 ####KADEN Urinalysis Automated Oqgjtsmfmn1128 [place] [address] UA Mucous Occasional Abnormal Trace [facility] Comment on above: Performed By: #### 8 1674801 ####KADEN Urinalysis Automated Arqlxaljdi5325 [place] [address] UA Nitrite Negative Normal Negative [facility] Comment on above: Performed By: #### 8 1244314 ####KADEN Urinalysis Automated G[address]qeycfrh[address] [place] [address] 27678 UA pH 6.0 Normal 4.6-8.0 [facility] Comment on above: Performed By: #### 8 8870795 ####KADEN Urinalysis Automated Ndwvmudakh3[address] [place] [address] UA Protein 1+ Abnormal Negative [facility] Comment on above: Performed By: #### 8 1059518 ####KADEN Urinalysis Automated Byjcoujmlk[address] [place] [address] 59[address] UA Spec Grav 1.019 Normal 1.003-1.[address] [facility] Comment on above: Performed By: #### 8 2723023 ####KADEN Urinalysis Automated Gxvgcybcfl72[address] [place] [address] 74777 UA Squam Epithelial 5-10 Abnormal 0-5 [facility] Comment on above: Performed By: #### 8 9364306 ####KADEN Urinalysis Automated Fayztcpczp2916 [place] [address] UA Urobilinogen Negative Normal [facility] Comment on above: Performed By: #### 8 2275082 ####KADEN Urinalysis Automated Ovzvtqlbvv8635 [place] [address] UA WBC >50 Abnormal 0-5 [facility] Comment on above: Performed By: #### 8 3239517 ####KADEN Urinalysis Automated Ghjghdabbv[address] [place] [address] 32380 Urine, color Yellow Normal Yellow [facility] Comment on above: Performed By: #### 8 9317448 ####KADEN Urinalysis Automated Ppjwnnsbhb4571 [place] [address] Urine, erythrocytes 5-10 Abnormal 0-3 [facility] Comment on above: Performed By: #### 8 2695574 ####KADEN Urinalysis Automated Fkfbdsqbmj4613 [place] [address] Urine, glucose Negative Normal Negative [facility] Comment on above: Performed By: #### 8 5898062 ####KADEN Urinalysis Automated Ppyqcilswy7360 [place] [address] Urine, ketones presence Negative Normal Negative [facility] Comment on above: Performed By: #### 8 8921964 ####KADEN Urinalysis Automated Jwsykdawgw4402 [place] [address] Urine, urobilinogen Negative Normal Negative [facility] Comment on above: Performed By: #### 8 8044400 ####KADEN Urinalysis Automated Noohxzdonh7318 [place] [address] Vital Signs Date Time Vital Sign Value Performing Clinician Facility 07-18-2023 10:30-0500 Body mass index (BMI) [Ratio] 26.7 kg/m2 [facility] [facility] Work Phone: [facility] 07-18-2023 10:30-0500 Body weight 75.03 kg Cuong Diana DO Work Phone: [facility] 07-18-2023 10:30-0500 Diastolic blood pressure 68 mm[Hg] Cuong Diana DO Work Phone: [facility] 07-18-2023 10:30-0500 Systolic blood pressure 106 mm[Hg] Cuong Diana DO Work Phone: [facility] 02-11-2023 14:130400 Body height 165.1 cm SADAF Wyatt Work Phone: [facility] 02-11-2023 14:130400 Body temperature 97.9 [degF] SADAF Wyatt Work Phone: [facility] 02-11-2023 14:13-0400 Body weight 70.55 kg SADAF Wyatt Work Phone: [facility] 02-11-2023 14:13-0400 Diastolic blood pressure 80 mm[Hg] FERMIN-Ventura Wyatt Work Phone: [facility] 02-11-2023 14:13-0400 Heart rate 60 /min SADAF Wyatt Work Phone: [facility] 02-11-2023 14:13-0400 Respiratory rate 15 /min PA-Ventura Wyatt Work Phone: [facility] 02-11-2023 14:13-0400 SaO2% (BldA) [Mass fraction] 99 % FERMIN-Ventura Wyatt Work Phone: [facility] 02-11-2023 14:13-0400 Systolic blood pressure 134 mm[Hg] SADAF Wyatt Work Phone: [facility] 02-08-2023 12:36-0400 Body height 165.1 cm SADAF Wyatt Work Phone: [facility] 02-08-2023 12:36-0400 Body temperature 98.2 [degF] SADAF Wyatt Work Phone: [facility] 02-08-2023 12:36-0400 Body weight 72.57 kg SADAF Wyatt Work Phone: [facility] 02-08-2023 12:36-0400 Diastolic blood pressure 84 mm[Hg] SADAF Wyatt Work Phone: [facility] 02-08-2023 12:36-0400 Heart rate 74 /min SADAF Wyatt Work Phone: [facility] 02-08-2023 12:36-0400 Respiratory rate 15 /min SADAF Wyatt Work Phone: [facility] 02-08-2023 12:36-0400 SaO2% (BldA) [Mass fraction] 98 % SADAF Wyatt Work Phone: [facility] 02-08-2023 12:36-0400 Systolic blood pressure 150 mm[Hg] PA-C Andie Wyatt Work Phone: [facility] 12-19-2022 14:43-0400 Body temperature 96.9 [degF] PA-C Andie Wyatt Work Phone: [facility] 12-19-2022 14:43-0400 Diastolic blood pressure 74 mm[Hg] PA-C Andie Wyatt Work Phone: [facility] 12-19-2022 14:43-0400 Heart rate 59 /min PA-C Andie Wyatt Work Phone: [facility] 12-19-2022 14:43-0400 Respiratory rate 18 /min PA-C Andie Wyatt Work Phone: [facility] 12-19-2022 14:43-0400 SaO2% (BldA) [Mass fraction] 100 % PA-C Andie Wyatt Work Phone: [facility] 12-19-2022 14:43-0400 Systolic blood pressure 115 mm[Hg] PA-C Andie Wyatt Work Phone: [facility] 12-19-2022 14:00-0400 Diastolic blood pressure 89 mm[Hg] PA-Ventura Wyatt Work Phone: [facility] 12-19-2022 14:00-0400 Heart rate 79 /min PA-Ventura Wyatt Work Phone: [facility] 12-19-2022 14:00-0400 Respiratory rate 16 /min PA-C Andie Wyatt Work Phone: [facility] 12-19-2022 14:00-0400 SaO2% (BldA) [Mass fraction] 99 % PA-C Andie Wyatt Work Phone: [facility] 12-19-2022 14:00-0400 Systolic blood pressure 150 mm[Hg] PA-C Andie Wyatt Work Phone: [facility] 12-19-2022 03:30-0400 Body height 165.1 cm PA-C Andie Wyatt Work Phone: [facility] 12-19-2022 03:30-0400 Body weight 72.2 kg PA-C Andie Wyatt Work Phone: [facility] 12-18-2022 23:07-0400 Body height 165.1 cm PA-C Andie Wyatt Work Phone: [facility] 12-18-2022 23:07-0400 Body weight 74.2 kg PA-C Andie Wyatt Work Phone: [facility] 12-18-2022 23:05-0400 Body temperature 98.5 [degF] PA-C Andie Wyatt Work Phone: [facility] 08-20-2022 14:31-0500 Body height 165.1 cm PA-C Andie Wyatt Work Phone: [facility] 08-20-2022 14:31-0500 Body temperature 98.9 [degF] PA-C Andie Wyatt Work Phone: [facility] 08-20-2022 14:31-0500 Body weight 71.55 kg PA-Ventura Wyatt Work Phone: [facility] 08-20-2022 14:31-0500 Diastolic blood pressure 87 mm[Hg] PA-Ventura Wyatt Work Phone: [facility] 08-20-2022 14:31-0500 Heart rate 97 /min PA-C Andie Wyatt Work Phone: [facility] 08-20-2022 14:31-0500 Respiratory rate 18 /min FERMIN-C Andie Wyatt Work Phone: [facility] 08-20-2022 14:31-0500 SaO2% (BldA) [Mass fraction] 98 % PA-C Andie Wyatt Work Phone: [facility] 08-20-2022 14:31-0500 Systolic blood pressure 135 mm[Hg] PA-C Andie Wyatt Work Phone: [facility] 02-08-2022 03:06-0400 Body weight 68.[address] CUONG ORTIZ . [facility] Comment on above: Performed By: #### AFPMAT #### [facility] [address] [address] [address] Juan Antonio Ibarra 02-05-2022 18:24-0400 Body height 165.1 cm SADAF Wyatt Work Phone: [facility] 02-05-2022 18:24-0400 Body temperature 98.3 [degF] SADAF Wyatt Work Phone: [facility] 02-05-2022 18:24-0400 Body weight 67.9 kg SADAF Wyatt Work Phone: [facility] 02-05-2022 18:24-0400 Diastolic blood pressure 68 mm[Hg] SADAF Wyatt Work Phone: [facility] 02-05-2022 18:24-0400 Heart rate 92 /min SADAF Wyatt Work Phone: [facility] 02-05-2022 18:24-0400 Respiratory rate 18 /min SADAF Wyatt Work Phone: [facility] 02-05-2022 18:24-0400 SaO2% (BldA) [Mass fraction] 99 % SADAF Wyatt Work Phone: [facility]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
[2023-07-28 23:19] VITALS: BP 118/75; PULSE 101; RESP 20; TEMP 37.1; O2SAT 97; BMI 26.6
--- NOTE | 2023-07-28 23:34 | ED_ITS ---
HPI - General Adult General Chief complaint: Headache Stated complaint: Sore throat, body aches, PT is 22-wks Time Seen by Provider: 07/28/23 23:29 Source: patient Mode of arrival: walk-in Limitations: no limitations History of Present Illness HPI narrative: patient is 21 weeks . is going well. Ill past couple of days with sore throat, headache, nausea and recurrent vomiting. No urinary symptoms or vaginal bleeding. Ears feel itchy. Not dizzy. Has not taken any medication in 2 days. Feels she is dehydrated Related Data Home Medications Medication Instructions Recorded Confirmed 2 tab PO DAILY 07/28/23 07/28/23 Allergies Allergy/AdvReac Type Severity Reaction Status Date / Time Penicillins Allergy Unknown Verified 07/28/23 23:23 Sulfa (Sulfonamide Allergy Unknown Verified 07/28/23 23:23 Antibiotics) Review of Systems ROS Status of ROS 10 or more systems reviewed and unremark able except as noted in history and below PFSH PFSH Social History Smoking status: Former smoker Exam Constitutional Vital Signs, click to edit/add: Last Vital Signs Temp 98.8 F 07/28/23 23:19 Pulse 97 H 07/29/23 01:31 Resp 18 07/29/23 01:31 BP 109/71 07/29/23 01:31 Pulse Ox 97 07/29/23 01:31 O2 Del Method Room Air 07/29/23 01:31 Common normals: no apparent distress, average body habitus, oriented x3, no limitations, healthy appearing and well nourished [facility] Common normals: normocephalic and head/scalp atraumatic Other: pharynx mildly injected Eye Common normals: PERRL, EOMs intact bilaterally and conjunctivae normal Respiratory Common normals: normal respiratory effort, no retractions, no use of accessory muscles and clear to auscultation bilaterally Cardio Common normals: regular rate, regular rhythm, S1 normal heart sound and S2 normal heart sound GI Common normals: Normal to inspection, nondistended, normoactive bowel sounds present, soft to palpation and non-tender Extremity Common normals: normal to inspection and full ROM Neuro Common normals: oriented x3, CN's II-XII intact bilaterally, moves all extremities and no focal motor deficits Psych Appearance: grossly normal Course Vital Signs Vital signs: Vital Signs Temperature 98.8 F 07/28/23 23:19 Pulse Rate 101 H 07/28/23 23:19 Respiratory Rate 20 07/28/23 23:19 Blood Pressure 118/75 07/28/23 23:19 Pulse Oximetry 97 07/28/23 23:19 Oxygen Delivery Method Room Air 07/28/23 23:19 Temperature 98.8 F 07/28/23 23:19 Pulse Rate 97 H 07/29/23 01:31 Respiratory Rate 18 07/29/23 01:31 Blood Pressure 109/71 07/29/23 01:31 Pulse Oximetry 97 07/29/23 01:31 Oxygen Delivery Method Room Air 07/29/23 01:31 Medical Decision Making MDM Narrative Medical decision making narrative: patient presents with headache, sore throat and recurrent vomiting. throat with mild injection. Throat swab neg. Patient treated with anti emetic and hydration and is feeling better. labs with evidence of dehydration, mild anemia and swab neg for COVID and influenza Lab Data Labs: Lab Results 07/28/23 07/28/23 07/29/23 Range/Units 23:34 23:45 00:50 WBC 12.8 H (4.0-11.0) 10^3/uL RBC 4.01 L (4.20-5.40) 10^6/uL Hgb 10.6 L (12.0-16.0) g/dL Hct 32.9 L (36.0-48.0) % MCV 82.0 (81.0-99.0) fL MCH 26.4 L (26.7-34.0) pg MCHC 32.2 (29.9-35.2) g/dL RDW 15.1 H (11.0-15.0) % Plt Count 203 (150-450) 10^3/uL MPV 9.5 (9.5-13.5) fL Neut % (Auto) 87.9 H (43.0-75.0) % Lymph % (Auto) 6.4 L (20.5-60.0) % Lamb % (Auto) 5.0 (1.7-12.0) % Eos % (Auto) 0.0 L (0.9-7.0) % Baso % (Auto) 0.2 (0.2-2.0) % Neut # (Auto) 11.3 H (1.4-6.5) 10^3/uL Lymph # (Auto) 0.8 L (1.2-3.8) 10^3/uL Lamb # (Auto) 0.6 (0.3-0.8) 10^3/uL Eos # (Auto) 0.0 (0.0-0.7) 10^3/uL Baso # (Auto) 0.0 (0.0-0.1) 10^3/uL Abs Immat Gran (auto) 0.07 H (0.00-0.03) 10^3/uL Imm/Tot Granulo (auto) 0.5 (0.0-0.5) % Sodium 137 (136-145) mmol/L Potassium 3.8 (3.5-5.1) mmol/L Chloride 102 (98-107) mmol/L Carbon Dioxide 22.8 (21.0-32.0) mmol/L Anion Gap 16.0 BUN 8.0 (7.0-18.0) mg/dL Creatinine 0.64 (0.55-1.02) mg/dL Est GFR ( Amer) >60 (>=60) Est GFR (Non-Af Amer) >60 (>=60) BUN/Creatinine Ratio 12.5 Glucose 87 (74-106) mg/dL Calcium 8.8 (8.5-10.1) mg/dL Total Bilirubin 1.0 (0.2-1.0) mg/dL AST 17 (15-37) U/L ALT 15 (14-59) U/L Alkaline Phosphatase 86 (46-116) U/L Total Protein 7.5 (6.4-8.2) g/dL Albumin 2.8 L (3.4-5.0) g/dL Globulin 4.7 g/dL Albumin/Globulin Ratio 0.6 Lipase 43.0 (16.0-77.0) U/L Urine Color Yellow (YELLOW) Urine Clarity Clear (CLEAR) Urine pH 6.0 (5.0-9.0) Ur Specific [place] 1.025 (1.005-1.025) Urine Protein Negative (NEG/TRACE) mg/dL Urine Glucose (UA) Negative (NEGATIVE) mg/dL Urine Ketones >=80 A (NEGATIVE) mg/dL Urine Occult Blood Negative (NEGATIVE) Urine Nitrite Negative (NEGATIVE) Urine Bilirubin Negative (NEGATIVE) Urine Urobilinogen 0.2 (0.2-1.0) EU/dL Ur Leukocyte Esterase Small A (NEGATIVE) Urine RBC 0-2 (0-2) #/HPF Urine WBC 0-2 A (NONE SEEN) #/HPF Ur Squamous Epith Cells Few A (NONE/RARE) #/LPF Urine Crystals None seen (None Seen) #/HPF Urine Bacteria Trace A (NONE SEEN) #/HPF Urine Casts None seen (NONE SEEN) #/LPF Urine Mucus Trace A (NONE SEEN) Influenza Type A Ag Negative Influenza Type B Ag Negative SARS-CoV-2 Ag (CV2AG) Negative (NEGATIVE) Streptococcus Screen Group A Strep (NAAT) Cancelled 07/29/23 Range/Units 23:34 WBC (4.0-11.0) 10^3/uL RBC (4.20-5.40) 10^6/uL Hgb (12.0-16.0) g/dL Hct (36.0-48.0) % MCV (81.0-99.0) fL MCH (26.7-34.0) pg MCHC (29.9-35.2) g/dL RDW (11.0-15.0) % Plt Count (150-450) 10^3/uL MPV (9.5-13.5) fL Neut % (Auto) (43.0-75.0) % Lymph % (Auto) (20.5-60.0) % Lamb % (Auto) (1.7-12.0) % Eos % (Auto) (0.9-7.0) % Baso % (Auto) (0.2-2.0) % Neut # (Auto) (1.4-6.5) 10^3/uL Lymph # (Auto) (1.2-3.8) 10^3/uL Lamb # (Auto) (0.3-0.8) 10^3/uL Eos # (Auto) (0.0-0.7) 10^3/uL Baso # (Auto) (0.0-0.1) 10^3/uL Abs Immat Gran (auto) (0.00-0.03) 10^3/uL Imm/Tot Granulo (auto) (0.0-0.5) % Sodium (136-145) mmol/L Potassium (3.5-5.1) mmol/L Chloride (98-107) mmol/L Carbon Dioxide (21.0-32.0) mmol/L Anion Gap BUN (7.0-18.0) mg/dL Creatinine (0.55-1.02) mg/dL Est GFR ( Amer) (>=60) Est GFR (Non-Af Amer) (>=60) BUN/Creatinine Ratio Glucose (74-106) mg/dL Calcium (8.5-10.1) mg/dL Total Bilirubin (0.2-1.0) mg/dL AST (15-37) U/L ALT (14-59) U/L Alkaline Phosphatase (46-116) U/L Total Protein (6.4-8.2) g/dL Albumin (3.4-5.0) g/dL Globulin g/dL Albumin/Globulin Ratio Lipase (16.0-77.0) U/L Urine Color (YELLOW) Urine Clarity (CLEAR) Urine pH (5.0-9.0) Ur Specific [place] (1.005-1.025) Urine Protein (NEG/TRACE) mg/dL Urine Glucose (UA) (NEGATIVE) mg/dL Urine Ketones (NEGATIVE) mg/dL Urine Occult Blood (NEGATIVE) Urine Nitrite (NEGATIVE) Urine Bilirubin (NEGATIVE) Urine Urobilinogen (0.2-1.0) EU/dL Ur Leukocyte Esterase (NEGATIVE) Urine RBC (0-2) #/HPF Urine WBC (NONE SEEN) #/HPF Ur Squamous Epith Cells (NONE/RARE) #/LPF Urine Crystals (None Seen) #/HPF Urine Bacteria (NONE SEEN) #/HPF Urine Casts (NONE SEEN) #/LPF Urine Mucus (NONE SEEN) Influenza Type A Ag Influenza Type B Ag SARS-CoV-2 Ag (CV2AG) (NEGATIVE) Streptococcus Screen Negative Group A Strep (NAAT) Discharge Plan Discharge Chief Complaint: Headache Clinical Impression: Nausea & vomiting, Dehydration Patient Disposition: Home, Self-Care Prescriptions / Home Meds: No Action 2 tab PO DAILY Instructions: Dehydration (ED), Acute Nausea and Vomiting (ED) Stand Alone Forms: Portal Instructions Referrals: Jaime Wyatt [Primary Care Provider] - 1 week
[2023-07-28 23:54] LABS: Basophils Percent Auto 0.2 % (0.2-2.0); Hematocrit 32.9 % (36.0-48.0); Hemoglobin 10.6 g/dL (12.0-16.0); Immature Granulocytes Abs Auto 0.07 10^3/uL (0.00-0.03); Immature Granulocytes Pct Auto 0.5 % (0.0-0.5); Lymphocytes Absolute Auto 0.8 10^3/uL (1.2-3.8); Lymphocytes Percent Auto 6.4 % (20.5-60.0); Mean Corpuscular HGB Conc 32.2 g/dL (29.9-35.2); Mean Corpuscular Hemoglobin 26.4 pg (26.7-34.0); Mean Platelet Volume 9.5 fL (9.5-13.5); Monocytes Absolute Auto 0.6 10^3/uL (0.3-0.8); Neutrophils Absolute Auto 11.3 10^3/uL (1.4-6.5); Neutrophils Percent Auto 87.9 % (43.0-75.0); Platelet Count 203 10^3/uL (150-450); Red Blood Count 4.01 10^6/uL (4.20-5.40); Red Cell Distribution Width 15.1 % (11.0-15.0); White Blood Count 12.8 10^3/uL (4.0-11.0)
[2023-07-28] MEDS: 0.9 % SODIUM CHLORIDE 1,000 ML 999 ML IV (23:55)
[2023-07-28] MEDS: ONDANSETRON PF 4 MG/2 ML VIAL IV (23:55)
[2023-07-29 00:05] LABS: Internal Control Within Normal Limits; Strep A Antigen Screen Negative
[2023-07-29 00:08] LABS: Influenza Virus A Antigen Negative; Influenza Virus B Antigen Negative; Internal Control Within Normal Limits; SARS-CoV-2 Ag NEGATIVE (NEGATIVE)
[2023-07-29 00:09] LABS: Alanine Aminotransferase 15 U/L (14-59); Albumin Globulin Ratio 0.6; Albumin Level 2.8 g/dL (3.4-5.0); Alkaline Phosphatase 86 U/L (46-116); Aspartate Amino Transferase 17 U/L (15-37); BUN Creatinine Ratio 12.5; Calcium 8.8 mg/dL (8.5-10.1); Carbon Dioxide 22.8 mmol/L (21.0-32.0); Chloride 102 mmol/L (98-107); Estimated GFR (African America >60 (>=60); Estimated GFR (Non-African Ame >60 (>=60); Globulin 4.7 g/dL; Glucose 87 mg/dL (74-106); Potassium 3.8 mmol/L (3.5-5.1); Sodium 137 mmol/L (136-145); Total Protein 7.5 g/dL (6.4-8.2)
[2023-07-29 00:59] LABS: Bilirubin Urine NEGATIVE (NEGATIVE); Blood Urine NEGATIVE (NEGATIVE); Clarity Urine CLEAR (CLEAR); Color Urine YELLOW (YELLOW); Glucose Urine UA NEGATIVE (NEGATIVE); Ketones Urine >=80 mg/dL (NEGATIVE); Leukocyte Esterase Urine SMALL (NEGATIVE); Nitrite Urine NEGATIVE (NEGATIVE); Protein Urine NEGATIVE (NEG/TRACE); Specific Gravity Urine 1.025 (1.005-1.025); Urobilinogen Urine 0.2 EU/dL (0.2-1.0)
[2023-07-29 01:02] LABS: Urine Microscopic Indicated YES
[2023-07-29 01:06] LABS: Bacteria Urine TRACE #/HPF (NONE SEEN); Cast Seen? NONE SEEN #/LPF (NONE SEEN); Crystals Seen? None Seen #/HPF (None Seen); Mucus Urine TRACE (NONE SEEN); RBC Urine 0-2 #/HPF (0-2); Squamous Epithelial Cell Urine FEW #/LPF (NONE/RARE); WBC Urine 0-2 #/HPF (NONE SEEN)
[2023-07-29 01:31] VITALS: BP 109/71; PULSE 97; RESP 18; O2SAT 97
== END 2023-07-29 01:46 | disposition home or self-care (01) ==
PROVIDERS: Emergency Provider Internal Medicine; PCP Physician Assistant
DX: O26.892 Other specified pregnancy related conditions, second trimester (principal); E86.0 Dehydration; R11.2 Nausea with vomiting, unspecified; Z87.891 Personal history of nicotine dependence; Z20.822 Contact with and (suspected) exposure to COVID-19; Z3A.22 22 weeks gestation of pregnancy
CPT/HCPCS: 36415; 80053; 81001; 83690; 85025; 87070; 87635; 87804; 87811; 87880; 96361; 96374; 99284; J2405

== ENCOUNTER 2023-09-07 11:47 | Outpatient (OUT) | payer MEDICAID, SELFPAY ==
--- OUTSIDE RECORDS SUMMARY | 2023-09-07 11:51 | XMS_ITS | CCD ---
Author Organization [facility] Care Team Providers Care Fly Fishing Guide Name Role Phone CLARA JAMA TERESA Unavailable Unavail able SERENITY MALDONADO Unavailable Unavailable OKSANA CARO Unavailable UnavaNAGA Hull Unavailable Unavailable BARBOSA, LUKE MALIK Unavailable Unavailable PatrickSalomon terrell R Unavailable Unavailable Patrick, Salomon R Unavailable Unavailable Barbosa, Luke Unavailable Unavailable Ekalaka, Christian A Unavailable Unavailable Barbosa, Luke Unavailable Unavailable Ekalaka, Christian A Unavailable Unavailable Barbosa, Luke Unavailable Unavailable Shekhar, Christian A Unavailable Unavailable Barbosa, Luke Unavailable Unavailable Shekhar, Christian A Unavailable Unavailable Barbosa, Luke Unavailable Unavailable Ekalaka, Christian A Unavailable Unavailable Ekalaka, Christian A Unavailable Unavailable Barbosa, Luke Unavailable Unavailable Shekhar, Christian A Unavailable Unavailable Barbosa, Luke Unavailable Unavailable Shekhar, Christian A Unavailable Unavailable Shekhar, Christian A Unavailable Unavailable Barbosa, Luke Unavailable Unavailable Barbosa, Luke Unavailable Unavailable Woo, Emiliano Unavailable Unavailable Woo, Emiliano Unavailable Unavailable Patrick, Salomon R Unavailable Unavailable Barbosa, Luke Unavailable Unavailable Barbosa, Luke Unavailable Unavailable Oscar, Jag W Unavailable Unavailable Fredonia, Jag W Unavailable Unavailable Ekalaka, Chritsian A Unavailable Unavailable Barbosa, Luke Unavailable Unavailable Ekalaka, Christian A Unavailable Unavailable Barbosa, Luke Unavailable Unavailable No Doctor Assigned, Nodr Unavailable Unavail able Ivanauskas, Saulius Unavailable Unavailable Ivanajohnathon, Saulius Unavailable Unavailable Gamaliel Savage Unavailable Unavailable Savage, Gamaliel M Unavailable Unavailable Barbosa, Luke Unavailable Unavailable Cristina, Yasmin D Unavailable Unavailable Barbosa, Luke Unavailable Unavailable No Doctor Assigned, Nodr Unavailable Unavail able Woo, Emiliano Unavailable Unavailable Woo, Emiliano Unavailable Unavailable No Doctor Assigned, Nodr Unavailable Unavail able Fredonia, Jag W Unavailable Unavailable Fredonia, Jag W Unavailable Unavailable Barbosa, Luke Unavailable Unavailable No Doctor Assigned, Nodr Unavailable Unavail able Gamaliel Savage M Unavailable Unavailable Barbosa, Luke Unavailable Unavailable Hannah, Aaron A Unavailable Unavailable Hannah, Aaron A Unavailable Unavailable Patrick, Salomon R Unavailable Unavailable Patrick, Salomon R Unavailable Unavailable Barbosa, Luke Unavailable Unavailable Frank, Juanita Unavailable Unavailable Frank, Juanita Unavailable Unavailable Barbosa, Luke Unavailable Unavailable Ekalaka, Christian A Unavailable Unavailable Shekhar, Christian A Unavailable Unavailable Barbosa, Luke Unavailable Unavailable Ekalaka, Christian A Unavailable Unavailable Barbosa, Luke Unavailable Unavailable Barbosa, Luke Unavailable Unavailable Oscar, Jag W Unavailable Unavailable Fredonia, Jag W Unavailable Unavailable Ekalaka, Christian A Unavailable Unavailable Barbosa, Luke Unavailable Unavailable Gamaliel Savage M Unavailable Unavailable Hussein Gamaliel M Unavailable Unavailable Barbosa, Luke Unavailable Unavailable Ekalaka, Christian A Unavailable Unavailable Barbosa, Luke Unavailable [...] Provider SADAF Wyatt Primary Care Provider Meagan [facility] Elle E Emergency Provider [phone] DIANA ., DR ACOSTA Consulting Unavailable [facility] Primary Care Unavailable DIANA ., DR ACOSTA Attending Unavailable DIANA ., DR ACOSTA Admitting Unavailable DIANA ., DR ACOSTA Admitting Unavailable DIANA ., DR ACOSTA Attending Unavailable [facility] Primary Care Unavailable DIANA ., DR ACOSTA Consulting Unavailable ZINEMO, DR FELECIA Chadwick Consulting Unavailable [facility] Primary Care Unavailable KARASIK ., DR CAMACHO Admitting Unavailabl e KARASIK ., DR CAMACHO Attending Unavailabl e KARASIK ., DR CAMACHO Consulting Unavailabl e WEST, DR GAMALIEL Fischer Consulting Unavailable DIANA ., DR ACOSTA Consulting Unavailable ZIEBER, DR FELECIA Chadwick Consulting Unavailable WILLIAMS ., BARB Admitting Unavailable WILLIAMS ., BARB Attending Unavailable [facility] Primary Care Unavailable WILLIAMS ., BARB Consulting Unavailable DIANA ., DR ACOSTA Admitting Unavailable DIANA ., DR ACOSTA Attending Unavailable [facility] Primary Care Unavailable DIANA ., DR ACOSTA Consulting Unavailable [facility] Primary Care Unavailable KARASIK ., DR CAMACHO Admitting Unavailabl e KARASIK ., DR CAMACHO Attending Unavailabl e KARASIK ., DR CAMACHO Consulting Unavailabl e DIANA ., DR ACOSTA Admitting Unavailable DIANA ., DR ACOSTA Attending Unavailable [facility] Primary Care Unavailable DIANA ., DR ACOSTA Consulting Unavailable ZIEBER, DR FELECIA Chadwick Consulting Unavailable DIANA ., DR ACOSTA Admitting Unavailable DIANA ., DR ACOSTA Attending Unavailable [facility] Primary Care Unavailable DIANA ., DR ACOSTA Consulting Unavailable ZIEBER, DR FELECIA Chadwick Consulting Unavailable PRATIMA, BRODIE Consulting Unavailable DIANA ., DR ACOSTA Consulting Unavailable [facility] Primary Care Unavailable DIANA ., DR ACOSTA Attending Unavailable DIANA ., DR ACOSTA Admitting Unavailable ZIEBER, DR FELECIA Chadwick Consulting Unavailable DIANA ., DR ACOSTA Consulting Unavailable [facility] Primary Care Unavailable DIANA ., DR ACOSTA Attending Unavailable DIANA ., DR ACOSTA Admitting Unavailable DIANA ., DR ACOSTA Admitting Unavailable DIANA ., DR ACOSTA Attending Unavailable [facility] Primary Care Unavailable DIANA ., DR ACOSTA Consulting Unavailable ZIEBER, DR FELECIA Chadwick Consulting Unavailable DIANA ., DR ACOSTA Admitting Unavailable DIANA ., DR ACOSTA Attending Unavailable [facility] Primary Care Unavailable WEST, DR GAMALIEL Fischer Consulting Unavailable DIANA ., DR ACOSTA Consulting Unavailable [facility] Primary Care Unavailable KARASIK ., DR CAMACHO Admitting Unavailabl e KARASIK ., DR CAMACHO Attending Unavailabl e KARASIK ., DR CAMACHO Consulting Unavailabl e DIANA ., DR ACOSTA Consulting Unavailable ZIEBER, DR FELECIA Chadwick Consulting Unavailable DIANA ., DR ACOSTA Admitting Unavailable DIANA ., DR ACOSTA Attending Unavailable [facility] Primary Care Unavailable WEST, DR GAMALIEL Fischer Consulting Unavailable DIANA ., DR ACOSTA Consulting Unavailable DIANA ., DR ACOSTA Admitting Unavailable DIANA ., DR ACOSTA Attending Unavailable [facility] Primary Care Unavailable DIANA ., DR ACOSTA Consulting Unavailable DIANA ., DR ACOSTA Admitting Unavailable DIANA ., DR ACOSTA Attending Unavailable [facility] Primary Care Unavailable DIANA ., DR ACOSTA Consulting Unavailable ZIEBER, DR FELECIA Chadwick Consulting Unavailable DIANA ., DR ACOSTA Admitting Unavailable DIANA ., DR ACOSTA Attending Unavailable [facility] Primary Care Unavailable DIANA ., DR ACOSTA Consulting Unavailable DIANA ., DR ACOSTA Admitting Unavailable DIANA ., DR ACOSTA Attending Unavailable [facility] Primary Care Unavailable DIANA ., DR ACOSTA Consulting Unavailable [facility] Primary Care Unavailable DIANA ., DR ACOSTA Attending Unavailable DIANA ., DR ACOSTA Admitting Unavailable DIANA ., DR ACOSTA Admitting Unavailable DIANA ., DR ACOSTA Attending Unavailable [facility] Primary Care Unavailable DIANA ., DR ACOSTA Admitting Unavailable DIANA ., DR ACOSTA Attending Unavailable [facility] Primary Care Unavailable KARASIK ., DR CAMACHO Consulting Unavailabl e DIANA ., DR ACOSTA Consulting Unavailable DIANA ., DR ACOSTA Procedure Practitioner Unavail able ORLANDO PRASAD Consulting Unavailable JACQUES FLETCHER Consulting Unavailable DIANA ., DR ACOSTA Admitting Unavailable DIANA ., DR ACOSTA Attending Unavailable [facility] Primary Care Unavailable KARASIK ., DR CAMACHO Consulting Unavailabl e ZIEBER, DR FELECIA Chadwick Consulting Unavailable SADAF Wyatt Primary Care Provider MD Farhan Jean Attending Provider Poe, DO Oscar Emergency Provider Itzkowitz, DO Arden Admit Provider [phone] Itzkowitz, DO Aredn Attending Provider Lorenzo, CSTJAROCHO Costa Other Provider UnavailMD Juan Edwards Other Provider BRISA MoniqueC Ailyn Other Provider MD Jacques Valerio Other Provider MD Edith Urias Other Provider [phone] SADAF Wyatt Primary Care Provider Bullimaden, FIBER GLASS WORKER-BC Elle E Emergency Provider BRANNON Valencia Emergency Provider Andie Wyatt PA-C Primary Care Provider CUONG ORTIZ Referring Unavailable ANDIE WYATT Primary Care Unavailable Andie Johnson Unavailable Unallocated, Noms Provider Primary Care Provider Cesar Jean Admitting Unavailab Cesar Mckay Attending Unavailab le Andie Wyatt Primary Care Unavailable Itzkocece, Arden Admitting Unavailable Campbell Orozcoic Attending Unavailable Andie Wyatt Primary Care Unavailable Igor Ventura Consulting Unavailable Juan Krause Consulting Unavailable Ailyn Monique Consulting Unavailable Jacques Valerio Consulting Unavailable Edith Urias Consulting Unavailable Bullimore, Lele E Admitting Unavailable Bullimore, Elle E Attending Unavailable Andie Wyatt Primary Care Unavailable Johnson Valencia Admitting Unavailable Johnson Valencia Attending Unavailable Andie Wyatt Primary Care Unavailable Bullimore, Elle E Admitting Unavailable Bullimore, Elle E Attending Unavailable Andie Wyatt Primary Care Unavailable BARB KRAMER Attending Unavailable DIANACUONG Attending Unavailable CUONG ORTIZ Attending Unavailable CUONG ORTIZ Attending Unavailable ANDIE WYATT Referring Unavailable ANDIE WYATT Primary Care Unavailable ANDIE WYATT Referring Unavailable ANDIE WYATT Primary Care Unavailable Allergies Allergy Classification Reported Allergen(s) Allergy Type Date of Onset Reaction(s) Facility (2 sources) Bee; Translations: [BEES] Propensity to adverse reactions (disorder) 8 [facility] Repository (2 sources) Mold spore; Translations: [MOLD SPORES] Propensity to adverse reactions (disorder) 8 [facility] Repository (18 sources) Penicillins; Translations: [PENICILLINS] Propensity to adverse reactions to drug (disorder) 4 Hives [facility] Repository (12 sources) Sulfonamides (Antibiotic); Translations: [SULFA (SULFONAMIDE ANTIBIOTICS)] Propensity to adverse reactions to drug (disorder) 8 AOF, Rash [facility] Repository (1 source) Bee/Wasp/Ant venom; Translations: [Bee Stings] Propensity to adverse reactions to drug (disorder) [facility] Repository (1 source) mold extract; Translations: [Mold] Drug Allergy [facility] Repository (1 source) Sulfonamides (Antibiotic); Translations: [sulfa drugs] Propensity to adverse reactions to drug (disorder) [facility] Repository (4 sources) bee venom; Translations: [BEE VENOM] Propensity to adverse reactions to drug (disorder) 8 [facility] Repository (1 source) OTHER; Translations: [OTHER] Propensity to adverse reactions to food (disorder) 8 [facility] Repository (1 source) MOLDS & SMUTS; Translations: [MOLDS & SMUTS] Propensity to adverse reactions to drug (disorder) 8 [facility] Repository (4 sources) SULFA ANTIBIOTICS; Translations: [SULFA ANTIBIOTICS] Propensity to adverse reactions to drug (disorder) 8 [facility] Repository (1 source) Sulfonamides (Antibiotic) Drug allergy (disorder) 4 [facility] Repository (4 sources) Bee Venom Protein (Honey Bee); Translations: [BEE VENOM PROTEIN (HONEY BEE)] Propensity to adverse reactions to drug 2 [facility] (1 source) Penicillin Drug Allergy 2 [facility] Repository (1 source) Sulfacetamide Drug Allergy 2 [facility] Repository Medications Current Medications Medication Drug Class(es) Dates Sig (Normalized) Sig (Original) clindamycin 150 mg oral capsule (12 sources) Lincosamide Antibacterial Start: 02-08-2023 take 450 mg by mouth three times daily Clindamycin Hcl Active 450 MG PO Three times daily 90 February 08, 2023 12:00am Start: 02-24-2022 End: 12-18-2022 take 450 mg by mouth three times daily Clindamycin Hcl Discontinued 450 MG PO Three times daily 90 August 20, 2022 1:00am December 18, 2022 [...] mouth in the morning. 0 02/27/2023 Active [place]ney (No Known Home Meds) (2 sources) Start: 12-18-2022 [place] (No Known Home Meds) Active December 18, [...] (-1 ORAL) Take by mouth. 0 Active Eraaltkj-Xhx-Eu-FA (, w/Iron & FA,) 27-0.8 MG tablet (3 sources) Sdnmqqik-Mpf-Db-FA (, w/Iron & FA,) 27-0.8 MG tablet 1 (one) time each day at the same time. 0 Active WY-Frc-AB-[place]-3 ( Gummies/DHA & FA) 0.4-32.5 MG chewable tablet (3 sources) Start: 07-09-2023 End: 08-08-2023 TW-Phr-QR-[place]den-3 ( Gummies/DHA & FA) 0.4-32.5 MG chewable [...] conditions (not mental disorders or infectious disease) (18 sources) Encounter for screening for malignant neoplasm of cervix; Translations: [Encounter for screening for diabetes mellitus] Onset: 12-27-2021 Episodic Residual codes; unclassified (1 source) 39 weeks gestation of ; Translations: [39 WEEKS GESTATION OF ] Onset: 08-15-2022 Episodic Residual codes; unclassified (1 source) Family history of hereditary disease; Translations: [Family history of other specified conditions] 07-03-2023 Episodic Residual codes; unclassified (1 source) Family history of other congenital malformations, deformations and chromosomal abnormalities; Translations: [Family history of other congenital malformations, deformations and chromosomal abnormalities] Onset: 08-15-2023 Episodic Residual codes; unclassified (1 source) Genetic susceptibility to other disease; Translations: [Genetic susceptibility to other disease] Onset: 08-15-2023 Episodic Screening and history of mental health [...] Onset: 11-30-2017 Unclassified (3 sources) 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 [facility] AFP VALUE 70.2 ng/mL . [facility] COMMENT: Comment . [facility] Comment on above: Alma Chaudhary , Ph.D., [facility] Director References: Available Upon Request. Multiples Of Median Cutoffs For AFP Elevations Briscoe 2.5 Black 2.8 IDD 2.0 Twins 4.5 Abbreviation Definitions IDD - Insulin Dep Diabetes OSBR - Open Spina Bifida Risk For further inquiries contact [employer] [facility] at [phone]. This test was developed and its performance characteristics determined by [employer] It has not been cleared or approved by the Food and Drug Administration. Performed at: [facility] [employer] [address] [id number] Advertising Specialist: Oz Harkins [facility], Phone: [phone] GEST. AGE ON COLLECTION DATE 20.4 . weeks [facility] GESTAT. AGE BASED ON LMP . [facility] Comment on above: Recalculations are n ot recommended when gestational dating by LMP and ultrasound are within 10 days. INSULIN DEP DIABETES No . [facility] INTERPRETATION Comment . [facility] Comment on above: Interpretation: Scre en Negative [...] Customer Services to discuss available options. The [employer] recommends amniocentesis be offered to women age 35 and older. [age] [facility] MULTIPLE GESTATION No . [facility] OSBR RISK 1 IN 6301 . [facility] RACE . [facility] RESULTS Report . [facility] TEST RESULTS: Negative . [facility] WEIGHT 159 . lbs [facility] N N LMP [id number] 3 16 N 1 Y 159 N N N N White/ [facility] Urinalysis macro (dipstick) panel (U)on 07-18-2023 Bilirubin, UA Negative Negative - 4(70) +++ mg/dL [facility] Blood, UA Negative Negative - 50 Rakesh/mcL [facility] Clarity, UA Clear [facility] Color, UA Yellow [facility] Glucose, UA Negative Negative - 2000(110) ++++ mg/dL [facility] Interpretation and review of laboratory results Normal [facility] Ketones, UA Negative Negative - 160(16) ++++ mg/dL [facility] Leukocytes, UA Negative Negative - 500+++ Matti/mcL [facility] Nitrite, UA Negative Negative - Positive [facility] pH, UA 5.5 5 - 9 [facility] Protein, UA Negative Negative - 2000(20) ++++ mg/dL [facility] Spec Grav, UA 1.020 1 - 1.03 [facility] Urobilinogen, UA 1.0 0.2 - 12 mg/dL [facility] ABO/Rh Retypeon 12-19-2022 ABO/RH Recheck Result Positive Normal [facility] Comment on above: Result Comment: PERF ORMED BY: [facility] [address] [place] [address] PATHOLOGIST WATER FILTERER MALVIN MEDLEY M.D. Amphetamine Screen Ql (U)Ord ered By: Oscar Poe on 12-19-2022 Amphetamines Ql (U) Negative Negative [facility] Amylaseon 12-19-2022 Amylase [Catalytic activity/Vol] 35 U/L Normal 29-103 [facility] Comment on above: Performed By: #### C BC, CREAT, GLU, LYTES, AST, ETOH, BARB, LIPASE, CK, BUN ####[facility] [id number] Aspartate Amino Transferaseo n 12-19-2022 AST [Catalytic activity/Vol] 26 U/L Normal 13-39 [facility] Comment on above: Performed By: #### C BC, CREAT, GLU, LYTES, AST, ETOH, BARB, LIPASE, CK, BUN ####[facility] [id number] Automated erythrocytes count in urine sediment (number/area)Ordered By: Oscar Poe on 12-19-2022 RBC Auto (Urine sed) [#/Area] 5-9 [HPF] 0-4 [facility] Automated leukocytes count i n urine sediment (number/area)Ordered By: Oscar Poe on 12-19-2022 WBC Auto (Urine sed) [#/Area] 10-19 [HPF] 0-4 [facility] Barbiturates [Presence] in U rine by Screen methodOrdered By: Oscar Poe on 12-19-2022 Barbiturates Screen Ql (U) Negative Negative [facility] Benzodiazepines Screen Ql (U )Ordered By: Oscar Poe on 12-19-2022 Benzodiazepines Ql (U) Negative Negative [facility] Benzoylecgonine [Presence] i n Urine by Screen methodOrdered By: Oscar Poe on 12-19-2022 Benzoylecgonine Screen Ql (U) Negative Negative [facility] Bilirubin Test strip Ql (U)O rdered By: Oscar Poe on 12-19-2022 Bilirubin Ql (U) Negative Negative [facility] Blood Urea Nitrogenon 2022 Urea nitrogen [Mass/Vol] 21 mg/dL Normal 7-25 [facility] Comment on above: Performed By: #### C BC, CREAT, GLU, LYTES, AST, ETOH, BARB, LIPASE, CK, BUN ####[place] [id number] cervical spine wo conon 0 12-19-2022 CT cervical spine wo con [facility] [address] [place] [address] [place] [address] CT Scan Report Signed Patient: Zuleika Wyatt MR#: [id number] : 1990 Acct:[id number] Age/Sex: 32 / F ADM Date: 12/19/22 Loc: 4 Room: [address] [place] [address] Type: ADM INOo Attending Dr: Arden Orozco DO Copies to: DO Arden Jefferson DO Ordering Provider: Oscar Poe DO Date of Service: 12/18/22 CT/CT cervical spine wo con: f ([id number]) CT/CT head/brain wo con: f CT BRAIN [...] Pimentel Jr., D.O.12/19/2022 10:25 AM Dictation Location: [place] [address] Transcribed By: [facility] 12/19/22 1025 Dictated By: Rah Pimentel Jr, DO 12/19/22 1016 Signed By: 12/19/22 1025 [facility] CT head/brain wo conon 12-19 CT head/brain wo con [facility] [place] [address] [place] [address] CT Scan Report Signed Patient: Zuleika Wyatt MR#: [id number] : 1990 Acct:[id number] Age/Sex: 32 / F ADM Date: 12/19/22 Loc: Room: [address] [place] [address] Type: DIS INOo Attending Dr: Arden Orozco [...] HERNIATION. Impression dictated by: Rah Pimentel Jr., D.OAlexa12/19/2022 3:28 PM Dictation Location: [facility]--08 Transcribed By: PWS 12/19/22 1528 Dictated By: Rah Pimentel Jr, DO 12/19/22 1524 Signed By: 12/19/22 1528 Normal [facility] CT lumbar spine wo conon CT lumbar spine wo con [facility] [place] [address] CT Scan Report Signed Patient: Zuleika Wyatt MR#: [id number] : 1990 Acct:[id number] Age/Sex: 32 / F ADM Date: 12/19/22 Loc: Room: [address] [place] [address] Type: ADM INOo Attending Dr: Arden Orozco DO Copies to: DO Arden Jefferson DO Ordering Provider: Oscar Poe DO Date of Service: 12/18/22 CT/CT thoracic spine wo con: f ([id number]) CT/CT lumbar spine wo con: f CT [...] narrowing or hypertrophy. The ribs within the yajth-uw-vual appear intact. No paraspinal soft tissue abnormalities are present. The ascending aorta is mildly ectatic. The heart is not fully imaged though it is at least borderline prominent. There is no consolidation, pleural effusion or pneumothorax within the kknrp-hr-wnmv. No lumbar compression fractures are identified. There [...] The intra-abdominal and pelvic structures within the fcedp-fk-iuun show no contributory findings. CT/CT thoracic spine wo con IMPRESSION: MILD THORACIC SCOLIOSIS. NO ACUTE BONY INJURY INVOLVING THE THORACIC OR LUMBAR SPINE. Impression dictated by: Adela Mahan M.D.12/19/2022 10:36 AM Dictation Location: [place] [address] Transcribed By: [facility] 12/19/22 1036 Dictated By: Adela Mahan MD 12/19/22 1026 Signed By: 12/19/22 1036 Normal [facility] Cannabinoids [Presence] in U rine by Screen methodOrdered By: Oscar Poe on 12-19-2022 Cannabinoids Screen Ql (U) Positive Negative [facility] Comment on above: These are unconfirme d results and should not be used for legal purposes. Drug Cut-Off Concentration: AMPH 1000 ng/mL SEEMA 200 ng/mL LAZ 200 ng/mL COCM 300 ng/mL OP 300 ng/mL PCP 25 ng/mL THC 20 ng/mL Color Auto (U)Ordered By: Fernando Poe on 12-19-2022 Color (U) Yellow Yellow [facility] Complete Blood Count Auto Di ffon 12-19-2022 Basophils (Bld) [#/Vol] 0.1 10*3/uL Normal 0.0-0.2 [facility] Comment on above: Result Comment: PERF ORMED BY: [facility] [address] [place] [address] PATHOLOGIST WATER FILTERER JIANLAN SUN M.D. Performed By: #### C BC, CREAT, GLU, LYTES, AST, ETOH, BARB, LIPASE, CK, BUN ####[address] Basophils/100 WBC (Bld) 0.7 % Normal . [facility] Comment on above: Performed By: #### C BC, CREAT, GLU, LYTES, AST, ETOH, BARB, LIPASE, CK, BUN ####[address] Eosinophils (Bld) [#/Vol] 0.0 10*3/uL Normal 0.0-0.45 [facility] Comment on above: Performed By: #### C BC, CREAT, GLU, LYTES, AST, ETOH, BARB, LIPASE, CK, BUN ####[address] Eosinophils/100 WBC (Bld) 0.2 % Normal . [facility] Comment on above: Performed By: #### C BC, CREAT, GLU, LYTES, AST, ETOH, BARB, LIPASE, CK, BUN ####[address] Erythrocyte distribution width (RBC) [Ratio] 14.4 % Normal 11.9-15.3 [facility] Comment on above: Performed By: #### C BC, CREAT, GLU, LYTES, AST, ETOH, BARB, LIPASE, CK, BUN ####[address] Hematocrit (Bld) [Volume fraction] 36.2 % Normal 34.0-46.4 [facility] Comment on above: Performed By: #### C BC, CREAT, GLU, LYTES, AST, ETOH, BARB, LIPASE, CK, BUN ####[address] Hemoglobin (Bld) [Mass/Vol] 11.9 g/dL Normal 11.8-15.4 [facility] Comment on above: Performed By: #### C BC, CREAT, GLU, LYTES, AST, ETOH, BARB, LIPASE, CK, BUN ####[address] Lymphocytes (Bld) [#/Vol] 2.2 10*3/uL Normal 1.00-4.8 [facility] Comment on above: Performed By: #### C BC, CREAT, GLU, LYTES, AST, ETOH, BARB, LIPASE, CK, BUN ####[address] Lymphocytes/100 WBC (Bld) 21.8 % Normal . [facility] Comment on above: Performed By: #### C BC, CREAT, GLU, LYTES, AST, ETOH, BARB, LIPASE, CK, BUN ####[address] MCH (RBC) [Entitic mass] 26.9 pg Normal 24.7-34.3 [facility] Comment on above: Performed By: #### C BC, CREAT, GLU, LYTES, AST, ETOH, BARB, LIPASE, CK, BUN ####[address] MCV (RBC) [Entitic vol] 82.1 fL Normal 80-100 [facility] Comment on above: Performed By: #### C BC, CREAT, GLU, LYTES, AST, ETOH, BARB, LIPASE, CK, BUN ####[address] Mean Corpuscular HGB Conc 32.8 g/dL Normal 32.0-35.0 [facility] Comment on above: Performed By: #### C BC, CREAT, GLU, LYTES, AST, ETOH, BARB, LIPASE, CK, BUN ####[address] Monocytes (Bld) [#/Vol] 0.8 10*3/uL Normal 0.0-0.8 [facility] Comment on above: Performed By: #### C BC, CREAT, GLU, LYTES, AST, ETOH, BARB, LIPASE, CK, BUN ####[address] Monocytes/100 WBC (Bld) 22.19 % High 0.00-20.00 [facility] Comment on above: Result Comment: For adults in ED, MDW > 20.0 may be associated with a higher risk of sepsis during the first 12 hrs of hospital admission Performed By: #### C BC, CREAT, GLU, LYTES, AST, ETOH, BARB, LIPASE, CK, BUN ####[address] Monocytes/100 WBC (Bld) 7.4 % Normal . [facility] Comment on above: Performed By: #### C BC, CREAT, GLU, LYTES, AST, ETOH, BARB, LIPASE, CK, BUN ####[address] Neutrophils (Bld) [#/Vol] 7.2 10*3/uL Normal 1.8-7.7 [facility] Comment on above: Performed By: #### C BC, CREAT, GLU, LYTES, AST, ETOH, BARB, LIPASE, CK, BUN ####[address] Neutrophils/100 WBC (Bld) 69.9 % Normal . [facility] Comment on above: Performed By: #### C BC, CREAT, GLU, LYTES, AST, ETOH, BARB, LIPASE, CK, BUN ####[address] NRBC% 0.1 /100{WBC} Normal 0-0.5 [facility] Comment on above: Performed By: #### C BC, CREAT, GLU, LYTES, AST, ETOH, BARB, LIPASE, CK, BUN ####[address] Platelet mean volume (Bld) [Entitic vol] 8.1 fL Normal 6.3-10.7 [facility] Comment on above: Performed By: #### C BC, CREAT, GLU, LYTES, AST, ETOH, BARB, LIPASE, CK, BUN ####[place] [id number] [place] [id number] [facility] Platelets (Bld) [#/Vol] 223 10*3/uL Normal 150-450 [facility] Comment on above: Performed By: #### C BC, CREAT, GLU, LYTES, AST, ETOH, BARB, LIPASE, CK, BUN ####[place] [id number] [facility] RBC (Bld) [#/Vol] 4.42 10*6/uL Normal 3.60-5.00 [facility] Comment on above: Performed By: #### C BC, CREAT, GLU, LYTES, AST, ETOH, BARB, LIPASE, CK, BUN ####[address] WBC (Bld) [#/Vol] 10.3 10*3/uL Normal 3.8-11.6 [facility] Comment on above: Performed By: #### C BC, CREAT, GLU, LYTES, AST, ETOH, BARB, LIPASE, CK, BUN ####[place] [id number] [facility] Creatine Kinaseon 12-19-2022 CK [Catalytic activity/Vol] 50 U/L Normal 30-223 [facility] Comment on above: Result Comment: PERF ORMED BY: [facility] [address] [place] [address] PATHOLOGIST [employer]TER[employer] MALVIN MEDLEY M.D. Performed By: #### C BC, CREAT, GLU, LYTES, AST, ETOH, BARB, LIPASE, CK, BUN ####[place] [id number] [facility] Creatinineon 12-19-2022 Creatinine [Mass/Vol] 0.84 mg/dL Normal 0.60-1.20 [facility] Comment on above: Performed By: #### C BC, CREAT, GLU, LYTES, AST, ETOH, BARB, LIPASE, CK, BUN ####[address] Creatinine Clr Calc Pharmacy 98.76 Normal [facility] Comment on above: Performed By: #### C BC, CREAT, GLU, LYTES, AST, ETOH, BARB, LIPASE, CK, BUN ####[facility] GFR/1.73 sq M.predicted MDRD (S/P/Bld) [Vol rate/Area] mL/min/{1.73_m2} [facility] Comment on above: Performed By: #### C BC, CREAT, GLU, LYTES, AST, ETOH, BARB, LIPASE, CK, BUN ####[place] [id number] Dipstick and Microscopicon 0 12-19-2022 Appearance (U) Clear Normal Clear [facility] Comment on above: Order Comment: Name Collection Type:: Clean-Voided Midstream Performed By: #### U RDS, UHCG, CUU, ADDONUAPLUS #### [facility] [address] [place] [address] Bacteria,Urine None Seen Normal None Seen [facility] Comment on above: Order Comment: Name Collection Type:: Clean-Voided Midstream Performed By: #### U RDS, UHCG, CUU, ADDONUAPLUS #### [facility] [address] [place] [address] Bilirubin,Urine Negative Normal Negative [facility] Comment on above: Order Comment: Name Collection Type:: Clean-Voided Midstream Performed By: #### U RDS, UHCG, CUU, ADDONUAPLUS #### [facility] [address] [place] [address] [place] Color (U) Yellow Normal Yellow [facility] Comment on above: Order Comment: Name Collection Type:: Clean-Voided Midstream Performed By: #### U RDS, UHCG, CUU, ADDONUAPLUS #### [facility] [address] [place] [address] [place] Glucose Ql (U) Normal Normal Normal [facility] Comment on above: Order Comment: Name Collection Type:: Clean-Voided Midstream Performed By: #### U RDS, UHCG, CUU, ADDONUAPLUS #### [facility] [address] [place] [address] [place] Hyaline Casts,Urine 0-8 Normal 0-8 [facility] Comment on above: Order Comment: Name Collection Type:: Clean-Voided Midstream Performed By: #### U RDS, UHCG, CUU, ADDONUAPLUS #### [facility] [address] [place] [address] Ketones Ql (U) 1+ High Negative [facility] Comment on above: Order Comment: Name Collection Type:: Clean-Voided Midstream Performed By: #### U RDS, UHCG, CUU, ADDONUAPLUS #### [address] Leukocyte esterase Test strip Ql (U) 2+ High Negative [facility] Comment on above: Order Comment: Name Collection Type:: Clean-Voided Midstream Performed By: #### U RDS, UHCG, CUU, ADDONUAPLUS #### [facility] [address] [place] [address] [place] Nitrite,Urine Negative Normal Negative [facility] Comment on above: Order Comment: Name Collection Type:: Clean-Voided Midstream Performed By: #### U RDS, UHCG, CUU, ADDONUAPLUS #### [facility] [address] [place] [address] [place] Occult Blood,Urine Negative Normal Negative [facility] Comment on above: Order Comment: Name Collection Type:: Clean-Voided Midstream Performed By: #### U RDS, UHCG, CUU, ADDONUAPLUS #### [facility] [address] [place] [address] [place] pH (U) 5.5 [pH] Normal 5.0-9.0 [facility] Comment on above: Order Comment: Name Collection Type:: Clean-Voided Midstream Performed By: #### U RDS, UHCG, CUU, ADDONUAPLUS #### [facility] [address] [place] [address] [place] Protein,Urine Negative Normal Negative [facility] Comment on above: Order Comment: Name Collection Type:: Clean-Voided Midstream Performed By: #### U RDS, UHCG, CUU, ADDONUAPLUS #### [facility] [address] [place] [address] RBC,Urine 5-9 High 0-4 [facility] Comment on above: Order Comment: Name Collection Type:: Clean-Voided Midstream Performed By: #### U RDS, UHCG, CUU, ADDONUAPLUS #### [facility] [address] [place] [address] Specificy [place],Urine 1.025 Normal 1.001-1.03 0 [facility] Comment on above: Order Comment: Name Collection Type:: Clean-Voided Midstream Performed By: #### U RDS, UHCG, CUU, ADDONUAPLUS #### [facility] [address] [place] [address] Squamous Epithelial Cell,Urine 3-4 High 0-2 [facility] Comment on above: Order Comment: Name Collection Type:: Clean-Voided Midstream Performed By: #### U RDS, UHCG, CUU, ADDONUAPLUS #### [facility] [address] [place] [address] Urobilinogen,Urine Normal Normal Normal [facility] Comment on above: Order Comment: Name Collection Type:: Clean-Voided Midstream Performed By: #### U RDS, UHCG, CUU, ADDONUAPLUS #### [facility] [address] [place] [address] WBC,Urine 10-19 High 0-4 [facility] Comment on above: Order Comment: Name Collection Type:: Clean-Voided Midstream Performed By: #### U RDS, UHCG, CUU, ADDONUAPLUS #### [address] Drug Screen,Urineon 12-20-19 23 Amphetamine Screen,Urine Negative Normal Negative [facility] Comment on above: Performed By: #### U RDS, UHCG, CUU, ADDONUAPLUS #### [facility] [address] [place] [address] [place] Barbiturate Screen,Urine Negative Normal Negative [facility] Comment on above: Performed By: #### U RDS, UHCG, CUU, ADDONUAPLUS #### [place] [address] [place] Benzodiazepines Screen,Urine Negative Normal Negative [facility] Comment on above: Performed By: #### U RDS, UHCG, CUU, ADDONUAPLUS #### [address] Cannabinoid Screen,Urine Positive High Negative [facility] Comment on above: Result Comment: Thes e are unconfirmed results and should not be used for legal purposes. Drug Cut-Off Concentration: AMPH 1000 ng/mL SEEMA 200 ng/mL LAZ 200 ng/mL COCM 300 ng/mL OP 300 ng/mL PCP 25 ng/mL THC 20 ng/mL PERFORMED BY: [place] [address] PATHOLOGIST W[employer] FILTERER MALVIN MEDLEY M.D. Performed By: #### U RDS, UHCG, CUU, ADDONUAPLUS #### [place] [address] [place] Cocaine Screen,Urine Negative Normal Negative [facility] Comment on above: Performed By: #### U RDS, UHCG, CUU, ADDONUAPLUS #### [facility] [address] [place] [address] [place] Opiate Screen,Urine Negative Normal Negative [facility] Comment on above: Performed By: #### U RDS, UHCG, CUU, ADDONUAPLUS #### [place] [address] [place] Phencyclidine Screen,Urine Negative Normal Negative [facility] Comment on above: Performed By: #### U RDS, UHCG, CUU, ADDONUAPLUS #### [place] [address] [place] ECG 12 lead ECGon 12-19-2022 ECG 12 lead ECG [facility] [place] [address] Electrocardiograph Report Signed Patient: Zuleika Wyatt MR#: [id number] : 1990 Acct:[id number] Age/Sex: 32 / F ADM Date: 12/19/22 Loc: Room: [address] [place] [address] Type: DIS INOo Attending Dr: Arden Orozco [...] ECGs available Confirmed by OSCAR POE DO ([id number]) on 12/19/2022 10:18:39 PM Referred By: Electronically Signed By:OSCAR POE DO Transcribed By: MUS Signed By Oscar Poe DO 12/19 Normal [facility] Electrolyteson 12-19-2022 Anion gap [Moles/Vol] 14.5 mmol/L Normal 6.0-15.0 [facility] Comment on above: Performed By: #### C BC, CREAT, GLU, LYTES, AST, ETOH, BARB, LIPASE, CK, BUN ####[place] [id number] [place] [id number] [facility] Chloride [Moles/Vol] 105 mmol/L Normal 98-107 [facility] Comment on above: Performed By: #### C BC, CREAT, GLU, LYTES, AST, ETOH, BARB, LIPASE, CK, BUN ####[place] [id number] [place] [id number] [facility] CO2 [Moles/Vol] 20.0 mmol/L Low 21.0-31.0 [facility] Comment on above: Performed By: #### C BC, CREAT, GLU, LYTES, AST, ETOH, BARB, LIPASE, CK, BUN ####[facility] Potassium [Moles/Vol] 3.5 mmol/L Normal 3.5-5.1 [facility] Comment on above: Performed By: #### C BC, CREAT, GLU, LYTES, AST, ETOH, BARB, LIPASE, CK, BUN ####[address] Sodium [Moles/Vol] 136 mmol/L Normal 136-145 [facility] Comment on above: Performed By: #### C BC, CREAT, GLU, LYTES, AST, ETOH, BARB, LIPASE, CK, BUN ####[address] Ethyl Alcohol Profileon Ethanol [Mass/Vol] mg/dL Normal [facility] Comment on above: Performed By: #### C BC, CREAT, GLU, LYTES, AST, ETOH, BARB, LIPASE, CK, BUN ####[address] Percent Ethanol Not performed Normal [facility] Comment on above: Result Comment: PERF ORMED BY: [facility] [address] [place] [address] PATHOLOGIST WATER FILTERER MALVIN MEDLEY M.D. Performed By: #### C BC, CREAT, GLU, LYTES, AST, ETOH, BARB, LIPASE, CK, BUN ####[place] [id number] [facility] Glucoseon 12-19-2022 Glucose [Mass/Vol] 93 mg/dL Normal 70-100 [facility] Comment on above: Result Comment: [place] Glucose Reference Range is dependent on time and content of last meal. Glucose of more than 200 mg/dL in a nonstressed, ambulatory subject supports the diagnosis of Diabetes Mellitus. ADA recommended reference range Performed By: #### C BC, CREAT, GLU, LYTES, AST, ETOH, BARB, LIPASE, CK, BUN ####[address] HCG ( test) [place].rapi d Ql (U)Ordered By: Oscar Poe on 12-19-2022 HCG ( test) Ql (U) Negative [facility] HCG,Qualitative Serumon HCG,Qualitative Serum Negative Normal [facility] Comment on above: Result Comment: PERF ORMED BY: [facility] [address] [place] [address] PATHOLOGIST W[employer] FILTERER MALVIN MEDLEY M.D. Performed By: #### H CGQUAL #### [facility] [address] HCG,Urineon 12-19-2022 Beta HCG ( test) Ql (U) Negative Normal [facility] Comment on above: Order Comment: Name Collection Type:: Clean-Voided Midstream Result Comment: PERF ORMED BY: [place] [address] PATHOLOGIST WATER FILTERER MALVIN MEDLEY M.D. Performed By: #### U RDS, UHCG, CUU, ADDONUAPLUS #### [facility] [address] [place] [address] Ketones Auto test strip (U) [Mass/Vol]Ordered By: Oscar Poe on 12-19-2022 Ketones (U) [Mass/Vol] 1+ Negative [facility] - UrinalysisOrder ed By: Oscar Poe on 12-19-2022 Hyaline casts LM Ql (Urine sed) 0-8 [LPF] 0-8 [facility] Lipaseon 12-19-2022 Lipase [Catalytic activity/Vol] 29.0 U/L Normal 11.0-82.0 [facility] Comment on above: Result Comment: PERF ORMED BY: [facility] [address] [place] [address] PATHOLOGIST W[employer] FILTERER MALVIN MEDLEY M.D. Performed By: #### C BC, CREAT, GLU, LYTES, AST, ETOH, BARB, LIPASE, CK, BUN ####[facility] [address] [place] [id number] [facility] Nitrite Test strip Ql (U)Ord ered By: Oscar Poe on 12-19-2022 Nitrite Ql (U) Negative Negative [facility] Opiates [Presence] in Urine by Screen methodOrdered By: Oscar Poe on 12-19-2022 Opiates Screen Ql (U) Negative Negative [facility] Phencyclidine Screen Ql (U)O rdered By: Oscar Poe on 12-19-2022 Phencyclidine Ql (U) Negative Negative [facility] Protein Auto test strip (U) [Mass/Vol]Ordered By: Oscar Poe on 12-19-2022 Protein (U) [Mass/Vol] Negative Negative [facility] Specific gravity Auto test s trip (U) [Rel density]Ordered By: Oscar Poe on 12-19-2022 Specific gravity (U) [Rel density] 1.025 1.001-1.03 0 [facility] Squamous epithelial cells de tection in urine sediment by light microscopyOrdered By: Oscar Poe on 12-19-2022 Epithelial cells.squamous LM Ql (Urine sed) 3-4 [HPF] 0-2 [facility] Type and Screenon 12-19-2022 ABO and Rh group Nom (Bld) Blood group A Rh(D) positive Normal [facility] Comment on above: Result Comment: PERF ORMED BY: [place] [address] PATHOLOGIST WATER FILTERER MALVIN MEDLEY M.D. Urine Cultureon 12-19-2022 Bacteria identified Cx Nom (U) >100,000 colonies/ml mixed bacterial skin contaminants 2 Days PERFORMED BY: [facility] [address] [facility] [place] [address] PATHOLOGIST W[employer] FILTERER MALVIN MEDLEY M.D. [facility] Comment on above: Performed By: #### U RDS, UHCG, CUU, ADDONUAPLUS ####[facility] [address] [place] [id number] [facility] Urine bacteria detection by automated methodOrdered By: Oscar Poe on 12-19-2022 Bacteria Auto Ql (U) None seen None Seen [facility] Urine clarity by refractomet ry automatedOrdered By: Oscar Poe on 12-19-2022 Clarity Refractometry automated (U) Clear Clear [facility] Urine culture routineOrdered By: Oscar Poe on 12-19-2022 Bacteria identified Cx Nom (U) 2 Days [facility] Urine glucose measurement by automated test strip (mass/volume)Ordered By: Oscar Poe on 12-19-2022 Glucose Auto test strip (U) [Mass/Vol] Normal mg/dL Normal [facility] Urine hemoglobin detection b y automated test stripOrdered By: Oscar Poe on 12-19-2022 Hemoglobin Auto test strip Ql (U) Negative Negative [facility] Urine leukocyte esterase det ection by automated test stripOrdered By: Oscar Poe on 12-19-2022 Leukocyte esterase Auto test strip Ql (U) 2+ Negative [facility] Urobilinogen Auto test strip (U) [Mass/Vol]Ordered By: Oscar Poe on 12-19-2022 Urobilinogen (U) [Mass/Vol] Normal mg/dL Normal [facility] XR knee BI 2Von 12-19-2022 XR knee BI 2V [facility] [place] [address] XRay Report Signed Patient: Zuleika Wyatt MR#: [id number] : 1990 Acct:[id number] Age/Sex: 32 / F ADM Date: 12/19/22 Loc: Room: [address] [place] [address] Type: ADM INOo Attending Dr: Arden Orozco DO Copies to: DO Arden Jefferson DO Ordering Provider: Oscar Poe DO Date of Service: 12/18/22 XR/XR knee BI 2V: f ([id number]) XR/XR chest 1V portable: TRAUMATIC INJURY ([id number]) XR/XR pelvis 1-2V: f ([id number]) XR/XR foot LT 2V: f CLINICAL DATA: [...] Adela Mahan M.D.12/19/2022 10:41 AM Dictation Location: [place] [address] Transcribed By: [facility] 12/19/22 1041 Dictated By: Adela Mahan MD 12/19/22 1036 Signed By: 12/19/22 1041 Normal [facility] pH Auto test strip (U)Ordere d By: Oscar Poe on 12-19-2022 pH (U) 5.5 [pH] 5.0-9.0 [facility] Amylase [Enzymatic activity/ volume] in Serum or PlasmaOrdered By: Oscar Poe on 12-18-2022 Amylase [Catalytic activity/Vol] 35 U/L 29-103 [facility] Aspartate aminotransferase [ Enzymatic activity/volume] in Serum or PlasmaOrdered By: Oscar Poe on 12-18-2022 AST [Catalytic activity/Vol] 26 U/L 13-39 [facility] Basophils Auto (Bld) [#/Vol] Ordered By: Oscar Poe on 12-18-2022 Basophils (Bld) [#/Vol] 0.1 10*3/uL 0.0-0.2 [facility] Basophils/100 WBC Auto (Bld) Ordered By: Oscar Poe on 12-18-2022 Basophils/100 WBC (Bld) 0.7 % . [facility] Carbon dioxide, total [Moles /volume] in Serum or PlasmaOrdered By: Oscar Poe on 12-18-2022 CO2 [Moles/Vol] 20.0 mmol/L 21.0-31.0 [facility] Chloride [Moles/volume] in S gwendolyn or PlasmaOrdered By: Oscar Poe on 12-18-2022 Chloride [Moles/Vol] 105 mmol/L 98-107 [facility] Choriogonadotropin.beta subu nit [Units/volume] in Serum or PlasmaOrdered By: Oscar Poe on 12-18-2022 HCG.beta subunit Qn Negative [facility] Creatine kinase [Enzymatic a ctivity/volume] in Serum or PlasmaOrdered By: Oscar Poe on 12-18-2022 CK [Catalytic activity/Vol] 50 U/L 30-223 [facility] Creatinine [Mass/volume] in Serum or PlasmaOrdered By: Oscar Poe on 12-18-2022 Creatinine [Mass/Vol] 0.84 mg/dL 0.60-1.20 [facility] Eosinophils Auto (Bld) [#/Vo l]Ordered By: Oscar Poe on 12-18-2022 Eosinophils (Bld) [#/Vol] 0.0 10*3/uL 0.0-0.45 [facility] Eosinophils/100 WBC Auto (Bl d)Ordered By: Oscar Poe on 12-18-2022 Eosinophils/100 WBC (Bld) 0.2 % . [facility] Erythrocyte distribution wid th Auto (RBC) [Ratio]Ordered By: Oscar Poe on 12-18-2022 Erythrocyte distribution width (RBC) [Ratio] 14.4 % 11.9-15.3 [facility] Ethanol [Mass/volume] in Ser um or PlasmaOrdered By: Oscar Poe on 12-18-2022 Ethanol [Mass/Vol] mg/dL [facility] Ethanol [Mass/Vol] TNP [facility] Comment on above: Test not performed Glucose [Mass/volume] in Ser um or PlasmaOrdered By: Oscar Poe on 12-18-2022 Glucose [Mass/Vol] 93 mg/dL 70-100 [facility] Comment on above: ADA recommended refe rence rangeRandom Glucose Reference Range is dependent on time and content of last meal. Glucose of more than 200 mg/dL in a nonstressed, ambulatory subject supports the diagnosis of Diabetes Mellitus. Hematocrit Auto (Bld) [Volum e fraction]Ordered By: Oscar Poe on 12-18-2022 Hematocrit (Bld) [Volume fraction] 36.2 % 34.0-46.4 [facility] Hemoglobin [Mass/volume] in BloodOrdered By: Oscar Poe on 12-18-2022 Hemoglobin (Bld) [Mass/Vol] 11.9 g/dL 11.8-15.4 [facility] Leukocytes [#/volume] correc osmel for nucleated erythrocytes in Blood by Automated counOrdered By: Oscar oPe on 12-18-2022 WBC corrected for nucl RBC Auto (Bld) [#/Vol] 10.3 10*3/uL 3.8-11.6 [facility] Lipase [Enzymatic activity/v olume] in Serum or PlasmaOrdered By: Oscar Poe on 12-18-2022 Lipase [Catalytic activity/Vol] 29.0 U/L 11.0-82.0 [facility] Lymphocytes Auto (Bld) [#/Vo l]Ordered By: Oscar Poe on 12-18-2022 Lymphocytes (Bld) [#/Vol] 2.2 10*3/uL 1.00-4.8 [facility] Lymphocytes/100 WBC Auto (Bl d)Ordered By: Oscar Poe on 12-18-2022 Lymphocytes/100 WBC (Bld) 21.8 % . [facility] MCH Auto (RBC) [Entitic mass ]Ordered By: Oscar Poe on 12-18-2022 MCH (RBC) [Entitic mass] 26.9 pg 24.7-34.3 [facility] MCHC Auto (RBC) [Mass/Vol]Or dered By: Oscar Poe on 12-18-2022 MCHC (RBC) [Mass/Vol] 32.8 g/dL 32.0-35.0 [facility] MCV Auto (RBC) [Entitic vol] Ordered By: Oscar Poe on 12-18-2022 MCV (RBC) [Entitic vol] 82.1 fL 80-100 [facility] Monocyte distribution width [Entitic volume] in Blood by AutomatedOrdered By: Oscar Poe on 12-18-2022 Monocyte distribution width Auto (Bld) [Entitic vol] 22.19 % 0.00-20.00 [facility] Comment on above: For adults in ED, MD W > 20.0 may be associated with a higher risk of sepsis during the first 12 hrs of hospital admission Monocytes Auto (Bld) [#/Vol] Ordered By: Oscar Poe on 12-18-2022 Monocytes (Bld) [#/Vol] 0.8 10*3/uL 0.0-0.8 [facility] Monocytes/100 WBC Auto (Bld) Ordered By: Oscar Poe on 12-18-2022 Monocytes/100 WBC (Bld) 7.4 % . [facility] Neutrophils Auto (Bld) [#/Vo l]Ordered By: Oscar Poe on 12-18-2022 Neutrophils (Bld) [#/Vol] 7.2 10*3/uL 1.8-7.7 [facility] Neutrophils/100 WBC Auto (Bl d)Ordered By: Oscar Poe on 12-18-2022 Neutrophils/100 WBC (Bld) 69.9 % . [facility] No Panel InformationOrdered By: Oscar Poe on 12-18-2022 Estimated GFR (CKD-EPI) > 60.0 mL/Min [facility] Creatinine Clearance (Chem 98.76 [facility] Nucleated erythrocytes [Pres ence] in Blood by Automated countOrdered By: Oscar Poe on 12-18-2022 Nucleated RBC Auto Ql (Bld) 0.1 /100{WBC} 0-0.5 [facility] Platelet mean volume Auto (B ld) [Entitic vol]Ordered By: Oscar Poe on 12-18-2022 Platelet mean volume (Bld) [Entitic vol] 8.1 fL 6.3-10.7 [facility] Platelets Auto (Bld) [#/Vol] Ordered By: Oscar Poe on 12-18-2022 Platelets (Bld) [#/Vol] 223 10*3/uL 150-450 [facility] Potassium [Moles/volume] in Serum or PlasmaOrdered By: Oscar Poe on 12-18-2022 Potassium [Moles/Vol] 3.5 mmol/L 3.5-5.1 [facility] RBC Auto (Bld) [#/Vol]Ordere d By: Oscar Poe on 12-18-2022 RBC (Bld) [#/Vol] 4.42 10*6/uL 3.60-5.00 [place] [facility] Serum or plasma anion gap de terminationOrdered By: Oscar Poe on 12-18-2022 Anion gap [Moles/Vol] 14.5 mmol/L 6.0-15.0 [facility] Sodium [Moles/volume] in Ser um or PlasmaOrdered By: Oscar Poe on 12-18-2022 Sodium [Moles/Vol] 136 mmol/L 136-145 [facility] Urea nitrogen [Mass/volume] in Serum or PlasmaOrdered By: Oscar Poe on 12-18-2022 Urea nitrogen [Mass/Vol] 21 mg/dL 7-25 [facility] WBC Auto (Bld) [#/Vol]Ordere d By: Oscar Poe on 12-18-2022 WBC (Bld) [#/Vol] 10.3 10*3/uL 3.8-11.6 [facility] PRBC LEUKOREDUCEDon 07-14-19 23 ABO and Rh group Nom (Bld) Cross Match Result Compatible Unit Blood Type A Pos Unit Number [id number] Status Information Released Specimen Exp Date Product ID Red Blood Cells Product Code [id number] Cross Match Result Compatible Unit Blood Type A Pos Unit Number [id number] Status Information Transfused Product ID Red Blood Cells Product Code [id number] Normal [facility] Comment on above: Performed By: #### R UBIGG #### [facility] [address] [place] [address] Dr. Juan Antonio Ibarra CBC AUTO DIFFon 07-07-2022 BASO # 0.0 103/ul Normal 0.0-0.1 [facility] Comment on above: Performed By: #### A 1C #### [facility] [address] [place] [address] Dr. Juan Antonio Ibarra Basophils/100 WBC (Bld) 0.3 % Normal 0.2-2.0 [facility] Comment on above: Performed By: #### A 1C #### [facility] [address] [place] [address] Dr. Juan Antonio Ibarra EO # 0.1 103/ul Normal 0.0-0.[address] [facility] Comment on above: Performed By: #### A 1C #### [facility] [address] [place] [address] Dr. Juan Antonio Ibarra Eosinophils/100 WBC (Bld) 0.9 % Normal 0.9-7.0 [facility] Comment on above: Performed By: #### A 1C #### [facility] [address] [place] [address] Dr. Juan Antonio Ibarra Erythrocyte distribution width (RBC) [Ratio] 14.5 % Normal 11.0-15.0 [facility] Comment on above: Performed By: #### A 1C #### [facility] [address] [place] [address] Dr. Juan Antonio Ibarra Hematocrit (Bld) [Volume fraction] 22.5 % Critically low 36.0-48.0 [facility] Comment on above: Performed By: #### A 1C #### [facility] [address] [place] [address] Dr. Juan Antonio Ibarra Hemoglobin (Bld) [Mass/Vol] 7.9 g/dL Critically low 12.0-16.0 [facility] Comment on above: Performed By: #### A 1C #### [facility] [address] [place] [address] Dr. Juan Antonio Ibarra IG # 0.10 10e3/ul Critically high 0.00-0.03 [facility] Comment on above: Performed By: #### A 1C #### [facility] [address] [place] [address] Dr. Juan Antonio Ibarra IG % 0.9 % Critically high 0.0-0.[address] [facility] Comment on above: Performed By: #### A 1C #### [facility] [address] [address] [address] Juan Antonio Ibarra LYMPH # 1.6 103/ul Normal 1.2-3.[address] [facility] Comment on above: Performed By: #### A 1C #### [facility] [address] [place] [address] Dr. Juan Antonio Ibarra Lymphocytes/100 WBC (Bld) 14.0 % Critically low 20.5-60.0 [facility] Comment on above: Performed By: #### A 1C #### [facility] [address] [place] [address] Dr. Juan Antonio Ibarra MANUAL DIFF REQ NO Normal [facility] Comment on above: Performed By: #### A 1C #### [facility] [address] [place] [address] Dr. Juan Antonio Ibarra MCH (RBC) [Entitic mass] 26.4 pg Critically low 26.7-34.0 [facility] Comment on above: Performed By: #### A 1C #### [facility] [address] [place] [address] Dr. Juan Antonio Ibarra MCHC (RBC) [Mass/Vol] 35.1 g/dL Normal 29.9-35.[address] [facility] Comment on above: Performed By: #### A 1C #### [facility] [address] [place] [address] Dr. Juan Antonio Ibarra MCV (RBC) [Entitic vol] 75.3 fL Critically low 81.0-99.0 [facility] Comment on above: Performed By: #### A 1C #### [facility] [address] [place] [address] Dr. Juan Antonio Ibarra MONO # 0.7 103/ul Normal 0.3-0.[address] [facility] Comment on above: Performed By: #### A 1C #### [facility] [address] [place] [address] Dr. Juan Antonio Ibarra Monocytes/100 WBC (Bld) 6.2 % Normal 1.7-12.[address] [facility] Comment on above: Performed By: #### A 1C #### [facility] [address] [place] [address] Dr. Juan Antonio Ibarra NEUT # 9.1 103/ul Critically high 1.4-6.[address] [facility] Comment on above: Performed By: #### A 1C #### [facility] [address] [place] [address] Dr. Juan Antonio Ibarra Neutrophils/100 WBC (Bld) 77.7 % Critically high 43.0-75.[address] [facility] Comment on above: Performed By: #### A 1C #### [facility] [address] [place] [address] Dr. Juan Antonio Ibarra Platelet mean volume (Bld) [Entitic vol] 9.2 fL Critically low 9.5-13.[address] [facility] Comment on above: Performed By: #### A 1C #### [facility] [address] [place] [address] Dr. Juan Antonio Ibarra PLT 143 103/ul Critically low 150-[address] [facility] Comment on above: Performed By: #### A 1C #### [facility] [address] [place] [address] Dr. Juan Antonio Ibarra RBC 2.99 106/ul Critically low 4.20-5.[address] [facility] Comment on above: Performed By: #### A 1C #### [facility] [address] [place] [address] Dr. Juan Antonio Ibarra WBC 11.7 103/ul Critically high 4.0-11.[address] [facility] Comment on above: Performed By: #### A 1C #### [facility] [address] [place] [address] Dr. Juan Antonio Ibarra CBC AUTO DIFFon 07-06-2022 BASO # 0.0 103/ul Normal 0.0-0.[address] [facility] Comment on above: Performed By: #### A 1C #### [facility] [address] [place] [address] Dr. Juan Antonio Ibarra Basophils/100 WBC (Bld) 0.3 % Normal 0.2-2.[address] [facility] Comment on above: Performed By: #### A 1C #### [facility] [address] [place], [place] [id number] Dr. Juan Antonio Ibarra EO # 0.1 103/ul Normal 0.0-0.7 [facility] Comment on above: Performed By: #### A 1C #### [facility] [address] [place] [address] Dr. Juan Antonio Ibarra Eosinophils/100 WBC (Bld) 0.8 % Critically low 0.9-7.0 [facility] Comment on above: Performed By: #### A 1C #### [facility] [address] [place] [address] Dr. Juan Antonio Ibarra Erythrocyte distribution width (RBC) [Ratio] 14.3 % Normal 11.0-15.0 [facility] Comment on above: Performed By: #### A 1C #### [facility] [address] [place] [address] Dr. Juan Antonio Ibarra Hematocrit (Bld) [Volume fraction] 23.0 % Critically low 36.0-48.0 [facility] Comment on above: Performed By: #### A 1C #### [facility] [address] [place] [address] Dr. Juan Antonio Ibarra Hemoglobin (Bld) [Mass/Vol] 7.5 g/dL Critically low 12.0-16.0 [facility] Comment on above: Performed By: #### A 1C #### [facility] [address] [place] [address] Dr. Juan Antonio Ibarra IG # 0.07 10e3/ul Critically high 0.00-0.03 [facility] Comment on above: Performed By: #### A 1C #### [facility] [address] [place] [address] Dr. Juan Antonio Ibarra IG % 0.6 % Critically high 0.0-0.[address] [facility] Comment on above: Performed By: #### A 1C #### [facility] [address] [place] [address] Dr. Juan Antonio Ibarra LYMPH # 2.1 103/ul Normal 1.2-3.[address] [facility] Comment on above: Performed By: #### A 1C #### [facility] [address] [place] [address] Dr. Juan Antonio Ibarra Lymphocytes/100 WBC (Bld) 18.8 % Critically low 20.5-60.0 [facility] Comment on above: Performed By: #### A 1C #### [facility] [address] [place] [address] Dr. Juan Antonio Ibarra MANUAL DIFF REQ NO Normal [facility] Comment on above: Performed By: #### A 1C #### [facility] [address] [place] [address] Dr. Juan Antonio Ibarra MCH (RBC) [Entitic mass] 26.0 pg Critically low 26.7-34.[address] [facility] Comment on above: Performed By: #### A 1C #### [facility] [address] [place] [address] Dr. Juan Antonio Ibarra MCHC (RBC) [Mass/Vol] 32.6 g/dL Normal 29.9-35.2 [facility] Comment on above: Performed By: #### A 1C #### [facility] [address] [place] [address] Dr. Juan Antonio Ibarra MCV (RBC) [Entitic vol] 79.9 fL Critically low 81.0-99.0 [facility] Comment on above: Performed By: #### A 1C #### [facility] [address] [place] [address] Dr. Juan Antonio Ibarra MONO # 0.7 103/ul Normal 0.3-0.[address] [facility] Comment on above: Performed By: #### A 1C #### [facility] [address] [place] [address] Dr. Juan Antonio Ibarra Monocytes/100 WBC (Bld) 6.6 % Normal 1.7-12.[address] [facility] Comment on above: Performed By: #### A 1C #### [facility] [address] [place] [address] Dr. Juan Antonio Ibarra NEUT # 8.2 103/ul Critically high 1.4-6.[address] [facility] Comment on above: Performed By: #### A 1C #### [facility] [address] [place] [address] Dr. Juan Antonio Ibarra Neutrophils/100 WBC (Bld) 72.9 % Normal 43.0-75.0 [facility] Comment on above: Performed By: #### A 1C #### [facility] [address] [place] [address] Dr. Juan Antonio Ibarra Platelet mean volume (Bld) [Entitic vol] 9.8 fL Normal 9.5-13.5 [facility] Comment on above: Performed By: #### A 1C #### [facility] [address] [place] [address] Dr. Juan Antonio Ibarra PLT 151 103/ul Normal 150-[address] [facility] Comment on above: Performed By: #### A 1C #### [facility] [address] [place] [address] Dr. Juan Antonio Ibarra RBC 2.88 106/ul Critically low 4.20-5.40 [facility] Comment on above: Performed By: #### A 1C #### [facility] [address] [place] [address] Dr. Juan Antonio Ibarra WBC 11.3 103/ul Critically high 4.0-11.0 [facility] Comment on above: Performed By: #### A 1C #### [facility] [address] [place] [address] Dr. Juan Antonio Ibarra CBC AUTO DIFFon 07-05-2022 BASO # 0.0 103/ul Normal 0.0-0.1 [facility] Comment on above: Performed By: #### R PRQ #### [facility] [address] [place] [address] Dr. Juan Antonio Ibarra Basophils/100 WBC (Bld) 0.2 % Normal 0.2-2.0 [facility] Comment on above: Performed By: #### R PRQ #### [facility] [address] [place] [address] Dr. Juan Antonio Ibarra EO # 0.0 103/ul Normal 0.0-0.7 [facility] Comment on above: Performed By: #### R PRQ #### [facility] [address] [place] [address] Dr. Juan Antonio Ibarra Eosinophils/100 WBC (Bld) 0.4 % Critically low 0.9-7.0 [facility] Comment on above: Performed By: #### R PRQ #### [facility] [address] [place] [address] Dr. Juan Antonio Ibarra Erythrocyte distribution width (RBC) [Ratio] 14.2 % Normal 11.0-15.0 [facility] Comment on above: Performed By: #### R PRQ #### [facility] [address] [place] [address] Dr. Juan Antonio Ibarra Hematocrit (Bld) [Volume fraction] 31.0 % Critically low 36.0-48.0 [facility] Comment on above: Performed By: #### R PRQ #### [facility] [address] [place] [address] Dr. Juan Antonio Ibarra Hemoglobin (Bld) [Mass/Vol] 10.1 g/dL Critically low 12.0-16.0 [facility] Comment on above: Performed By: #### R PRQ #### [facility] [address] [place] [address] Dr. Juan Antonio Ibarra IG # 0.10 10e3/ul Critically high 0.00-0.03 [facility] Comment on above: Performed By: #### R PRQ #### [facility] [address] [place] [address] Dr. Juan Antonio Ibarra IG % 1.1 % Critically high 0.0-0.5 [facility] Comment on above: Performed By: #### R PRQ #### [facility] [address] [place] [address] Dr. Juan Antonio Ibarra LYMPH # 1.6 103/ul Normal 1.2-3.[address] [facility] Comment on above: Performed By: #### R PRQ #### [facility] [address] [place] [address] Dr. Juan Antonio Ibarra Lymphocytes/100 WBC (Bld) 17.5 % Critically low 20.5-60.0 [facility] Comment on above: Performed By: #### R PRQ #### [facility] [address] [place] [address] Dr. Juan Antonio Ibarra MANUAL DIFF REQ NO Normal [facility] Comment on above: Performed By: #### R PRQ #### [facility] [address] [place] [address] Dr. Juan Antonio Ibarra MCH (RBC) [Entitic mass] 25.8 pg Critically low 26.7-34.0 [facility] Comment on above: Performed By: #### R PRQ #### [facility] [address] [place] [address] Dr. Juan Antonio Ibarra MCHC (RBC) [Mass/Vol] 32.6 g/dL Normal 29.9-35.[address] [facility] Comment on above: Performed By: #### R PRQ #### [facility] [address] [place] [address] Dr. Juan Antonio Ibarra MCV (RBC) [Entitic vol] 79.3 fL Critically low 81.0-99.0 [facility] Comment on above: Performed By: #### R PRQ #### [facility] [address] [place] [address] Dr. Juan Antonio Ibarra MONO # 0.7 103/ul Normal 0.3-0.8 [facility] Comment on above: Performed By: #### R PRQ #### [facility] [address] [place] [address] Dr. Juan Antonio Ibarra Monocytes/100 WBC (Bld) 8.1 % Normal 1.7-12.0 [facility] Comment on above: Performed By: #### R PRQ #### [facility] [address] [place] [address] Dr. Juan Antonio Ibarra NEUT # 6.7 103/ul Critically high 1.4-6.[address] [facility] Comment on above: Performed By: #### R PRQ #### [facility] [address] [place] [address] Dr. Juan Antonio Ibarra Neutrophils/100 WBC (Bld) 72.7 % Normal 43.0-75.0 [facility] Comment on above: Performed By: #### R PRQ #### [facility] [address] [place] [address] Dr. Juan Antonio Ibarra Platelet mean volume (Bld) [Entitic vol] 10.1 fL Normal 9.5-13.5 [facility] Comment on above: Performed By: #### R PRQ #### [facility] [address] [place] [address] Dr. Juan Antonio Ibarra PLT 202 103/ul Normal 150-[address] [facility] Comment on above: Performed By: #### R PRQ #### [facility] [address] [address] [address] Juan Antonio Ibarra RBC 3.91 106/ul Critically low 4.20-5.40 [facility] Comment on above: Performed By: #### R PRQ #### [facility] [address] [place] [address] Dr. Juan Antonio Ibarra WBC 9.2 103/ul Normal 4.0-11.0 [facility] Comment on above: Performed By: #### R PRQ #### [facility] [address] [place] [address] Dr. Juan Antonio Ibarra DRUG SCREEN RAPID (URINE)on 07-05-2022 AMP Negative Normal NEGATIVE [facility] Comment on above: Performed By: #### A 1C #### [facility] [address] [place] [address] Dr. Juan Antonio Ibarra BAR Negative Normal NEGATIVE [facility] Comment on above: Performed By: #### A 1C #### [facility] [address] [place] [address] Dr. Juan Antonio Ibarra BUP Negative Normal NEGATIVE [facility] Comment on above: Performed By: #### A 1C #### [facility] [address] [place] [address] Dr. Juan Antonio Ibarra BZO Negative Normal NEGATIVE [facility] Comment on above: Performed By: #### A 1C #### [facility] [address] [place] [address] Dr. Juan Antonio Ibarra PARAM Negative Normal NEGATIVE [facility] Comment on above: Performed By: #### A 1C #### [facility] [address] [place] [address] Dr. Juan Antonio Ibarra CUT-OFFS SEE BELOW Normal [facility] Comment on above: Result Comment: AMP [...] ng/mL Performed By: #### A 1C #### [facility] [address] [place] [address] Dr. Juan Antonio Ibarra DRUG CUT HEADER DRUG CLASS TEST SYST EM CUT-OFF CONCENTRATIONS ARE FOLLOWS: Normal [facility] Comment on above: Performed By: #### A 1C #### [facility] [address] [place] [address] Dr. Juan Antonio Ibarra mAMP Negative Normal NEGATIVE [facility] Comment on above: Performed By: #### A 1C #### [facility] [address] [place] [address] Dr. Juan Antonio Ibarra MTD Negative Normal NEGATIVE [facility] Comment on above: Performed By: #### A 1C #### [facility] [address] [place] [address] Dr. Juan Antonio Ibarra OPI Negative Normal NEGATIVE [facility] Comment on above: Performed By: #### A 1C #### [facility] [address] [place] [address] Dr. Juan Antonio Ibarra OXY Negative Normal NEGATIVE [facility] Comment on above: Performed By: #### A 1C #### [facility] [address] [place] [address] Dr. Juan Antonio Ibarra PCP Negative Normal NEGATIVE [facility] Comment on above: Performed By: #### A 1C #### [facility] [address] [place] [address] Dr. Juan Antonio Ibarra PPX Negative Normal NEGATIVE [facility] Comment on above: Performed By: #### A 1C #### [facility] [address] [address] [address] Juan Antonio Ibarra TCA Negative Normal NEGATIVE [facility] Comment on above: Performed By: #### A 1C #### [facility] [address] [place], [place] [address] Dr. Juan Antonio Ibarra THC Negative Normal NEGATIVE [facility] Comment on above: Performed By: #### A 1C #### [facility] [address] [address] [address] Juan Antonio Ibarra TYPE AND SCREENon 07-05-2022 TYPE AND SCREEN Negative Normal [facility] Comment on above: Performed By: #### T NS #### [facility] [address] [address] [address] Juan Antonio Ibarra US PREG BIOPHY [...] by: FELECIA GOLDMAN Date: 2022-06-28 15:29 Normal [facility] US PREG BIOPHY [...] by: FELECIA GOLDMAN Date: 2022-06-21 17:20 Normal [facility] US PREG GROWTHon [...] GAMALIEL CRUMP Date: 2022-06-21 13:[address] [facility] CULTURE URINEon 06-16-2022 CULTURE URINE Culture Observations : LIGHT GROWTH OF MIXED GENITAL ALONSO. NO POTENTIAL PATHOGENS SEEN. Normal [facility] Comment on above: Performed By: #### U RCX #### [facility] [address] [place] [address] Dr. Juan Antonio Ibarra UA (CLEAN/CATCH) RESIDENT ENGINEER/MICRO I F IND.on 06-16-2022 Bilirubin Ql (U) Negative Normal NEGATIVE [facility] Comment on above: Performed By: #### U MICRO, UACSIND #### [facility] [address] [address] [address] Juan Antonio Ibarra Clarity (U) CLEAR Normal CLEAR [facility] Comment on above: Performed By: #### U MICRO, UACSIND #### [facility] [address] [place] [address] Dr. Juan Antonio Ibarra Color (U) LT. YELLOW Normal YELLOW [facility] Comment on above: Performed By: #### U MICRO, UACSIND #### [facility] [address] [address] [address] Juan Antonio Ibarra Glucose Ql (U) Negative Normal NEGATIVE [facility] Comment on above: Performed By: #### U MICRO, UACSIND #### [facility] [address] [address] [address] Juan Antonio Ibarra Hemoglobin Ql (U) Negative Normal NEGATIVE [facility] Comment on above: Performed By: #### U MICRO, UACSIND #### [facility] [address] [place] [address] Dr. Juan Antonio Ibarra Ketones Ql (U) Negative Normal NEGATIVE [facility] Comment on above: Performed By: #### U MICRO, UACSIND #### [facility] [address] [place] [address] Dr. Juan Antonio Ibarra LEUKOCYTES MODERATE Abnormal NEGATIVE [facility] Comment on above: Performed By: #### U MICRO, UACSIND #### [facility] [address] [place] [address] Dr. Juan Antonio Ibarra Nitrite Ql (U) Negative Normal NEGATIVE [facility] Comment on above: Performed By: #### U MICRO, UACSIND #### [facility] [address] [place] [address] Dr. Juan Antonio Ibarra pH (U) 6.0 [pH] Normal 5-9 [facility] Comment on above: Performed By: #### U MICRO, UACSIND #### [facility] [address] [place] [address] Dr. Juan Antonio Ibarra SPEC GRAVITY 1.020 Normal 1.005-<=1. 025 [facility] Comment on above: Performed By: #### U MICRO, UACSIND #### [facility] [address] [place] [address] Dr. Juan Antonio Ibarra UA PROTEIN Negative Normal NEGATIVE/ TRACE [facility] Comment on above: Performed By: #### U MICRO, UACSIND #### [facility] [address] [place] [address] Dr. Juan Antonio Ibarra UR MICRO IND INDICATED Normal [facility] Comment on above: Performed By: #### U MICRO, UACSIND #### [facility] [address] [address] [address] Juan Antonio Ibarra Urobilinogen Qn (U) 1.0 {Pamela'U}/dL Normal 0.2 - 1. [address] [facility] Comment on above: Performed By: #### U MICRO, UACSIND #### [facility] [address] [address] [address] Juan Antonio Ibarra URINE MICROSCOPIC ONLYon BACTERIA SMALL Abnormal NONE SEEN [facility] Comment on above: Performed By: #### U MICRO, UACSIND #### [facility] [address] [place] [address] Dr. Juan Antonio Ibarra Bacteria identified Cx Nom (U) INDICATED Normal [facility] Comment on above: Performed By: #### U MICRO, UACSIND #### [facility] [address] [place] [address] Dr. Juan Antonio Ibarra CAST NONE SEEN Normal NONE SEEN [facility] Comment on above: Performed By: #### U MICRO, UACSIND #### [facility] [address] [place] [address] Dr. Juan Antonio Ibarra Crystals LM Nom (Urine sed) NONE SEEN Normal NONE SEEN [facility] Comment on above: Performed By: #### U MICRO, UACSIND #### [facility] [address] [place] [address] Dr. Juan Antonio Ibarra Epithelial cells LM Ql (Urine sed) RARE Normal NONE SEEN /RARE [facility] Comment on above: Performed By: #### U MICRO, UACSIND #### [facility] [address] [place] [address] Dr. Juan Antonio Ibarra MUCOUS NONE SEEN Normal NONE SEEN [facility] Comment on above: Performed By: #### U MICRO, UACSIND #### [facility] [address] [place] [address] Dr. Juan Antonio Ibarra RBC NONE SEEN Abnormal 0-[address] [facility] Comment on above: Performed By: #### U MICRO, UACSIND #### [facility] [address] [place] [address] Dr. Juan Antonio Ibarra WBC 2-5 Abnormal NONE SEEN [facility] Comment on above: Performed By: #### U MICRO, UACSIND #### [facility] [address] [place] [address] Dr. Juan Antonio Ibarra GROUP B STREP CULTUREon 05-18 S. agalactiae Ag Ql (Unsp spec) Culture Observations: NEGATIVE FOR GROUP B STREPTOCOCCUS. Normal [facility] Comment on above: Performed By: #### G BSCX #### [facility] [address] [place] [address] Dr. Juan Antonio Ibarra US PREG BIOPHY W NON STRESSo n 06-14-2022 [...] by: GAMALIEL CRUMP Date: 2022-06-14 16:[address] [facility] US PREG BIOPHY W NON [...] by: FELECIA GOLDMAN Date: 2022-06-07 16:42 Normal [facility] US PREG BIOPHY [...] by: FELECIA GOLDMAN Date: 2022-06-04 17:11 Normal [facility] US PREG BIOPHY [...] by: FELECIA GOLDMAN Date: 2022-06-04 16:23 Normal [facility] US PREG BIOPHY [...] by: GAMALIEL CRUMP Date: 2022-05-31 18:39 Normal [facility] US PREG BIOPHY [...] by: FELECIA GOLDMAN Date: 2022-05-24 16:[address] [facility] US PREG GROWTHon 05-24-2022 US [...] FELECIA GOLDMAN Date: 2022-05-24 16:[address] [facility] GLUCOSE - 1HRon 04-04-2022 Glucose [Mass/Vol] 101 mg/dL Normal 74-[address] [facility] Comment on above: Performed By: #### R PRQ #### [facility] [address] [address] [address] Juan Antonio Ibarra HEMOGRAM AND PLATELon 2021 Hematocrit (Bld) [Volume fraction] 33.5 % Critically low 36.0-48.0 [facility] Comment on above: Performed By: #### A 1C #### [facility] [address] [address] [address] Juan Antonio Ibarra Hemoglobin (Bld) [Mass/Vol] 10.7 g/dL Critically low 12.0-16.0 [facility] Comment on above: Performed By: #### A 1C #### [facility] [address] [place] [address] Dr. Juan Antonio Ibarra MCH (RBC) [Entitic mass] 29.3 pg Normal 26.7-34.0 [facility] Comment on above: Performed By: #### A 1C #### [facility] [address] [place] [address] Dr. Juan Antonio Ibarra MCHC (RBC) [Mass/Vol] 31.9 g/dL Normal 29.9-35.2 [facility] Comment on above: Performed By: #### A 1C #### [facility] [address] [place] [address] Dr. Juan Antonio Ibarra MCV (RBC) [Entitic vol] 91.8 fL Normal 81.0-99.0 [facility] Comment on above: Performed By: #### A 1C #### [facility] [address] [place] [address] Dr. Juan Antonio Ibarra PLT 179 103/ul Normal 150-450 [facility] Comment on above: Performed By: #### A 1C #### [facility] [address] [place] [address] Dr. Juan Antonio Ibarra RBC 3.65 106/ul Critically low 4.20-5.40 [facility] Comment on above: Performed By: #### A 1C #### [facility] [address] [place] [address] Dr. Juan Antonio Ibarra WBC 9.9 103/ul Normal 4.0-11.0 [facility] Comment on above: Performed By: #### A 1C #### [facility] [address] [place] [address] Dr. Juan Antonio Ibarra US PREG REEVAL [...] by: FELECIA GOLDMAN Date: 2022-03-20 20:55 Normal [facility] US PREG ANATOMY SINGLEon US [...] by: FELECIA GOLDMAN Date: 2022-02-22 16:46 Normal [facility] Coding Summaryon 02-14-2022 Coding Summary HTMLBase 64 IisaroymFZv2nWd+PGhlYWQ+PE 1YYCMlN09acMNznN2RZ7pVTV6J ZGTCXHEJEP5VZW7fmOJ4NYoqN0 VybiAv OetybAGiIY09CHm2EFC6tUbyTP lffH5imZIcZ8b6BsYtPR78qL83 YXliLECiEzI5RdBuersrtXUl D9uxPyFkrHDqAbd+PHRhYmxlIH dkDSNvVQkaWEWmXvFyeQmvGY3o Ul0nCEDpDXYsoEegjWTfBzTd t4ujOWRmMMbiRO5uoLycU9BadA Q1NQYpz5x5Qm52mIE+PHRkIHN0 cDbzLWfre407XhZpp3hsXAX6 wQSlAYstVPT9E22px4R6LEIgZT XhZPE0qAR5dA7lnPaciirpP7Si bSDcYdR7GDV2zTAccX1dzTra sbrrhC6xMca+R94SJM8CVLMRXX 6JAuz5S3CfHiwvpRY+MR00OGVd DT92fZHfpZAsy2acvIo6GxYu UYHtEIZ4hSnoWDawi8DnTCMnK8 5qxSRjo2L5QKHxzTzveNJnQgAw hZB6gP9gISqldwbqh4wfawtm Cxeqx8apky36bK77H13bOLrwXP LcLXE9WBRbKLXdpXrflg2xxZ8v Ii8+PGgbr5xod0ixuHj7YfUz UIRhkxFmvGdzXFP6l5ZfOx24A4 QnxSnvl0JiXic6dg04oMXwl3B9 zPS2RQqgHSGomC7yNYqcQaR4 JLQsFeMzbJ98vXLkUQsbIh6wiL posUgaFA2uQXHpkyuxABIxfU6b NKNqpWPzkLjvWB8mNPMdkprz e823EhYrSDX2XQZwzUGuA0MlzR 7dXiLqTUZmBHFdR2AiwJKoYFfm K665YKedMrA9AIGjjlQmM8Bl NNSwlPytOsE5w5P5Lb3Mr1Vbur kzCCD0MDbgJKX7YyQsIpRhLnC0 V9IvWmu4ICHymXakMT4aF9Fg VKOqcmwlytaosRD1HAJdLBSgwZ 75pFBiKBsxOv6ze3X4n390URYd KYQcjY26Ag7ypCgbWUPidWBY yB1pmejhg0xydlyxUsFdHWZyNA h1JLv4TGMsjLblFeHkICW0XhJ6 MJG3pGZrlL8ibSykndhdlP6o Oyc+G62fdT0oFCS5EBO7mtksJX DgvaZlNG01UL30Z9QxIigwnVEq bGU+NVLvuzRtuOdkIK0dSxCe u5xrl0QjOHzmI8SjLOVdQPvbSj z3IMLzSQH8xMU7sS1mCLOcNMch v6R6lFD3R1FejvZcqr5mb7ks JLNcIMzrA28gwKZou1N1AQFdtU E8GHSraMrzWrPkaL21Sjp+PGNv nAjoz0ClEirdi6qbi4gaiAl7 EyYqYYKchuTvyYwgPVA0j2IkPc 19I01fPZqhRVFsRWJeEDDhCIGm iBfiai3lvV9iSk2+PGNvbCB3 hYE2aE2mQOZkGfX4OSugN939By FmeRSjCtibb7rqo7zneKs3QdXt YGKpbfZckXnbQQY3f9HsEp23 I29eVEdeREIiOHYnPXWrRHXhzQ jsbr9hqV3uDz9+KO6hl4pcbs41 eU33wNX+LDMwCOK0nZmqLCkv HSPwhM5cFFetBpL4RONwRjSeiX 02cYFpVTcbIs5rwMcjfIssYV5j BOUdsbuzy170KoZfj0csNFGx vHDvWBhmWSJ9H55ra2L4YLUiXF McNAR3oST3jS2dwVnyetvdtQXe fEtfxeWblIyiGYzvBBlmQ230 IHRvcDsnPlBhdGllbnQgTmFtZT r4A8KbTbz8OQOhlIdjYH6fkWYx SIybLa4bgDpicUxiOS5jTCGa dysjs904JmIpa3jkUVWfbQSsEK xcTCT6A87bk3S7XDIpNEQvKCS6 kNA0dU5amTbamragsNBacGwk kmEfpLqnSMpaJThtX897HLXrbV mkGgZvuaJlJKBthDW9NH82ND98 nLCfb9J8jIV6J5JvZEMlkmjm woxvzST9NWKnKJIwgL78Tk8thI etPy0uRUWjDPU8XKDuiQYgF2Rq dU4iCrSgXHUfJSWwQ3MlbWZs EQlxW699USxaJsU3ULHduvYnG9 ToHZMgwGobVtS2g9E4Uy4LO7P6 ZS17EK60kPYjt2P0uFE8C0Fg HVTsqmzedxqweLP5XVOdKUGmnD 38Mg5rmAjfJm1kHTPkZHC8NMBk wJGxK6VkeA2uYxOqKUPfJWRp N5RfqUZtEHiyU048KTsvDvT9GV LldiAoB6CjCRZosYmaRyU3i4D3 Lf9QWTa3HW62KN00nRVwk1R6 sGT3K6PxRCZbzzorrpbwsIF2DW VhZSHbyD33Uv1tjZjqAz8cLQEm HZG6QKQelUPaH9EatK5xGaRg GNVnUBHzP3MoqOLwJGrnW488UJ iqMmB9YMUodcUfK4IeGLRtpKvb NrV3q2D6Wg8PUWKxWC93UND3 qVD1PO33LL73K2BgTltakOMaeP U+PHRhYmxlIHdpZHRoPScxMDAl RgXczXsmGV2dIt9eMNCfAZWd aGhvuJJaTrTuv4ndJIBnDWlhGN 6jjAqeG3VkbCC4VBLcd0c5Ul24 T17cW2ShbUI+CVGktRT3uBS1 cO0kPlEkMrC9BGhqL137CjUdtG UlGttme2onn8oqaWe4GpE8TBUh wkSizKddTPE3s3HfBu82N54h IHdpZHRoPSIxNSUiIHZhbGlnbj 6pzD7mId8+SLOhvLV4aME2dD3e GaNjVuS8JUcfW180QkArnKZt Xsdej3gzl9aumKa5DaSkQDBdvu PmwWrpDVC6b2OeFd78X4TciGus x3WjYpx9sz10aCBin5V5zJJ6 M8DdOSHtiigcpIAccXniXO2wJF RsqbxdWGYpsI4hNEMlC7o8WvUh BqO1ABtwM3AmhjG5INNtjVQd STbyYYG1A62kn6H3GURuNKZxNY F6hXO8fK0ykFhiqtsanDIccUbg pmYoyZhnIBzxZIjtK602IKKp eSpzOUNpaI5jYOSxkZZeuBrbOT 4wNTBpbjsnPlNURUlOLCBWSVJH ID4VTEIEDCG1U1QjAqs0NJNh yWlgTJ1iqCEsVDywDq8zsUrpmG ccUF9pGEMyjwegEHKacC7aTEYb oWPsuUxdAN6eHASdtucjj595 HiGcBCO1GCFdnBGxY6IsvH9eHn YpYZHwNDWuH3NvcCGdPUjcW399 MYjnKuO8IBUlsvRhK4RsTDMm wYchIgG6w1D1Xd1rHX0iDN4zGR ulIU94IK31cTTet2Q1jPQ4D4Iu MQMiimpiimvgvKO0QDKtLALg cZ18aMCdFPydEy0qe7K5l493OT HtGEKppS61Oz5bjUqmXYSikKUD iD5iarxwx9kmuyndCsHdPAUa GLw7IEg7PVLztIaaBhSmUFY3Qj Z0LDB6nIKgzG8xyFnixyhacF7u Oyc+JihyQCXaltN7F7PmAgg4 JOLemZzmCH8reQFbUNsnOv9nmN xqnAsxNP5sBLQxinibUCAxlC5i PJJviJQloDgmFT3eOWBuqsyn n348UxSlSNQ2HABllGIgJ9QhsW 5pTcJvINTaBYWkJ0LuhYUgHQmw H196BPwiWrJ6KMWqwcBgE3Am EOHvuWwgHkE0x4W4Ta7LJR0FCA S5Z8GvAub8QGPtfXmxJI8dkXSt VDxcXu9erLagbUsmTC1uGBIt tztwLPEcbG7vDOKbiLPweNldRW 7wWCDrdxydu809IwXhQMC0SSPc fLRlN1ZadV4qXwKlXMIdBMFc F3OuaFFvBJhfI707CQgvCsN5KL ZxguHvN3PnDYJgmPkwRvY2a0T3 En6PZEfkkBG+FP32mg52Z9Dx NhenOum7DFZbJHX2uSM4uL3cUO QwGIiqq6M7mTP2M8FnufOysn1n e2sgJAMoWHgzV39xyBXrp2R7 NTIclGL4KDIucJexAbZwwB76Qy c+TUZczJexw1TsNedob9lxs2qw yCz8JvSqFUNdulRemPbsQRA3 n3DnVn51Q62mQAsfFJQaSPKgSO YjFTMppJdovx7jpL5qGo2+PGNv cMD8pBL9rU9gOsXiItN0MNze O009YtClxGYvFefsg6dbd1enqI y0VkPxAFRgsdNadAsoKGG8z9Bk Te97M3OvyTprl9SbUik2uf19 uGZvg1N0eHO8L5FtHAJojnnuzK HnqVjaLD4iBIDxeajhKLDufW5i EURyQ4a4NdOwBpG5VQlyC6Bs ooK4PYIyjYAqEKAtfKRRaC1ooh qrx2frcxpeGxKnZVXlBMt0UMf7 LLHmhDovVwFkZWY5LbI3BJB2 nGJniN1pvXmnjxpwdD7tTss+UG g1x4ehiVThCV2bgAM4QY12FY98 hOTxq8V7rJO0N7MjIMEfopul ghfnhPR1CLAiDWEybS05Wq1beN vnXt3hNEQmVHP5FXOeeESnS1Xr iH5rVmBcKLTlEOWaJ2TgdTUx ZHdqD282ITdwEoW8GVSeorOfG7 ZoUGJgiDatIaS0i8X4Um3AOU07 RX39AK07hKVmk6S7yST5M9Ra VTIqwcoomiesvDQ0VWLkRSLrqO 42Hv2igOdlRq0uJQTwLOM1IGVc tCJsH2TzbV4sUeNiIFLxDLHy C6EbfIUrEBtjG075DJfuDpB8XS NaysMkG9RrVFTenAmqQjH8x2M1 Ny8WNb06DD47TR25gBEoi7F8 iIP9R1WzUHVvwhynpqxqyUB7GK BcUUJapI93Aj0rfDenEl4wQRCx WOJ3UIFlwXKyP0TwhP8dXdAs ERIvLPZyG9XbeJZbSOzzZ213JE sxJqR4AAPzbmJhH0LaZTIzbHla YbF3v6X1Ie2TBLuyxcn4G0De PjwvdHI+XC07AUGwGU91bGXbcM Xmq8wtyQs3HvZiMYRaCKT2uPwq ZAbee1CqDZJxW07gyMLhz7U6 IGN (more content not included)... [facility] Coding Summary HTMLBase 64 VckbyrouPUp0wVw+PGhlYWQ+PE 9IEISkE14jfZNgoF4TK6bCVO5M LAQUCKOPVJ7FRZ5ydWH8TZhbT5 VybiAv BzzxyQFhRP54IJu0YML5gGjbZO kxlG6vwFWpO5v8DaAaEA65kA80 VXsbQLIpLhA9PdXimmkvwKAo F9byMhZrhHPeZlw+PHRhYmxlIH aaPCBcZSwmUZCjFtLtzDygXY6k Xx5oOKZrULNnaGtreLGjFpCe n7ngSEHyVZyvRZ4knScvN3HlyS P9NANpr2z8Uq31tDP+PHRkIHN0 gKbkMExrg215HaDnp8aeXRN5 sNAlWLsyVQY3Q42xf3U3LHXyTP BaEQB9zAB4fN2onBnhqsjhD5Qh mQMvHuZ3UJL5tTTxqI9upLsw knozmW1fHpd+K74BTW7TDVUJGY 2JTth6V0ObZfpprTO+WA17YPKo ZX63dSOcbEVdz7qxkKs9RaJc ZJQiAAV1zYcdGXkmn5JdJFQqN1 3llNRfo5E8JMKokFvxhGUePeWn oUV1vY8tPZlcbqzsv5pxvdop Pjkdj3efgc40rF92T06cSAhoHD KvNXY0CMPlVIXytBkjsf3gfA2r Ii8+BWtri0cbs5hmmAb0EwCx QEBezcFsiNfaUUC5u1IdDm14A2 XdpSmnv2TiEle9qr06lBEmd4U9 xBW4MFekBEWzgV3bPQvjJyZ7 NSNeFnOceK26jXOaHOmyWm0aqD eahHinMG3iHYHzgzhbHVPwgS7a SBDxtDByxMkoZB9lUESmhpfb g927EuDkGUS0OSDakBHhD4XzvN 6pEbEfGAMxLIOmG1EyxDHzKUtx H823RGrbLiH9NMEqasRzL1Wg ACAjfDzyIjC1x5B5Jq2Bg6Jzdb bqKKA3IPsrJYI5MqEbQbTkSrQ8 C8EqMiz0ZIPhyUlzCE5vQ6Zv TPNdhmolahabdJU3TREaJOOhjB 88uELeGYokOf2kb0E4u041KWVg SUTfxF14Ln0doQmoOBXtsZTK wS9brsfdi9fvtcshJtDjKOPgTC s9ZVq1UJTtuMswTgPaNPJ1EkY1 GEM1vHUrkC4blGxtefrovK9s Oyc+T04nbJ8pBFY6BFP7tewtUE BdqsCiWJ47IM55C0TxBllrrKJj bGU+NSPbylMivKeaCP8qVvBi l4srj9VcQZrhA4TeZGClBUsdVd z7XMRqTWW1bQI5xB8jRWHaAQcu h1A7hHB0K1QcmnCsiu9qz5vf RFLmPOdbK59bmMNnc1Q5BKLdiZ I0LCYqgQgzXeXglT70Elu+PGNv yHtmj7KvXectx1bpt4wzzIc8 LsJfAGOuyzZdxRggVCU8o5DwPb 62J08wIUwdGVYsKOQcCUDcIYNm kOfqqw5xtM2eBg5+PGNvbCB3 bMM0aW6gQEXkXgR7FOcdO373Bm EdpPRjWsqkq3xmv4fkgZt0LdIn DEIkkcOpzCddSHA0p8ZxTo62 U59gMEfsGBQqDCJcYBCsTOTpfN khdk5uuS7kJs2+FO1ns6fbcr18 tP80uOF+MXQaKLJ2ePvmPSad FEBvmG5cFOxuMxP7DCAdVdTkbP 65qMKxUVuiVd6miInxkOryWA6i TVMnwfyri640EmCrq1nkPPOj zRHeGKiyLGU2V19tw7F0LMRfAT NkVBC5gKF0lY5tsGaevjpslZJq oZguvwUstStkMMweKJivD342 IHRvcDsnPlBhdGllbnQgTmFtZT l0F4ScRdt3UVZqsQqoOW9fgDDh QUcwTe7naGdtrZxpGW9lWYSx scrlk434WxHnh6grDZGigGVqSL wdDQI1F24un3O2PECzDOXcYGP0 uCQ7xB0syNvupxmcaEIatIry biRicWsxOTobYOeeI501UZYpkD pxVjPfcaFjLCYpeAO2AI02UH44 qUSvg0X0rBU8M2CiUKMeubms skaqnGY7TXSsWCKrrJ09Kl5rfS nhOh8eERFbRZK5TGVdnHBuV9Mo mG1bIjGqMKClTVOtD1NnoQWy DBjeY510VDsgTcR8VRKfgqOjG4 KeJXJrnCtlIkS0s2F2Zg7YZ6J7 SK82WH00uSSvy7U3dLO0P9Ym OGGsxkhvnduffMH4EVYrZVIjpJ 94Wr2kpNboNg0dSIDyOJW8PYRg kUOoT8OgpQ6jUvIaIAAqDTXp H5NayVVuZIdqS557EXagKlF2RZ OnmxIyJ0QiPFKohRjdCxR1b5W3 Nd7VJUn2FX74SH74pDGer2V5 qRG8T9LkWZVbuwvczplkbYM1UR XiCLGlpT41Sk7ukIjdMk3fWUMd LWI4JXMqcBMhI2TgiJ2lXqYm WZEcDHPtT4KlvUQeWErnL266BT lhZoT9IPHjuoHvX6HiYAEkpCqh IsL9q4W8Dk7YWSHiNO79WZW8 hNS6KT87DR14S9NtDfnvdEKdaW U+PHRhYmxlIHdpZHRoPScxMDAl HsHucJtzMC0sYd6pFORwDMGq mJypmDLoCuQzz4iwCWZuEPdoJU 2riUemP0GqbDL4XHEmb2b7Fo01 J01aF9YxyBT+PLYsxAY4rFW8 cB4yEsIhIpK8IEoiQ497RuVjrJ NpFmvik7iuo7hjjJh2WtW7LVNc hrVkdOzrUNP2i7KlMs91E04b IHdpZHRoPSIxNSUiIHZhbGlnbj 7xlL4fMx8+XTVzdZG8cIP0fG9v NhIyYaF4FNbbW239DkUmnYYl Ubolz8qxy8apzUx9AsVfUJZfwa GtjIdpGGI8p8QoSo34U5YngDbt x1NmDnj7km80xMVoa6K2rJC5 P7FtWOSzffzluUTvbFzpCE8hZO WxndtzEDZqdW5mRZZxX9n6RkAy FtP1AVkmT1TfhkJ6AFIrjBKn NFttGUA9S34gp2E2DDWpSMVySL X4lME1bK5ksKlpmtyftMMyeWkg ccVwoOtnLUqlFChxI764WPGz aXvqHCTwcE5gMKHjaNDzeJyrAL 4wNTBpbjsnPlNURUlOLCBWSVJH IV9XFHUYUIF6L2JfTfp2EFMb uLggBI8qpHFeKYpcFo0qwCcrpE crUA3gAIPqoxwaAJYgsX1oEWXg lIPlqAosAB3mAFYzcegrp172 TpOwNVF0ZVUkmJJwV8WnvH4aUh QaBWHrMFEfQ3JckEKlWQizV402 NIcnGuO1VCGdagXvX8NcZSMn zGwsIyX7m1S7Nt9yPV6uLZ4sXT ooCT83NG30wLTdu2X5xGJ0E3Vb VNPccjomrrictHQ3LAZlUIGe gG02sDDuFZjjGl5ho1Z6j027DK AyDAPleT11Jp7saKawRABxgBQH iZ9nugkvx3mtzsktIlIiVPKa DZg9ZPy3IFIgtEjsPoLbSQZ2Iz P6RBO7qVOzaE5ybAtrfhvioG9f Oyc+XtetVOXhczP0U4KoJqq4 RLGbnJciZR6zbGAwDCcrCl9viJ vtzVrdKF8cGLGdcskvGYFovQ6e XDFjrDIouYwaOG9qQSWfpdqs o399TtEfCTI7XARrzEVhN8HaxA 5iYvKeNGZkZPLlW8ZdbZHdTAap N811CTkjBaP5EYVmcdNqE9Bp PPSbuDywGeU0j3P8Ov8IZR6PKC B5A3FuOci9TGNslColVJ0rxOCt XMnmRm6goMbsoUaqXH9wOTNg uvezRYRcsS2gQEEsgTUnsMigCJ 0dNFKteoaup948CrLvDJN6BURi dOIqE0DqrA1gInPdHDEnSNMa Z4YfsKRjPYpkI988BXvkYfI2UD QwbcQnV0PkVECphMadUnM3j6Z0 Pj7UsVQmX2YcA0j9T3AnCdmk dHI+YI52WNFpKY79fZWpvAUoy2 aphJa4KmOdKUPpSOK5mQfiIEqr f5CxPDRaV19dgZFpq0E5EFRo hSyqrMFoIhSatIJ8kH1gHWwnla koi9ekmvzyDjtnz8jhnw27kX64 O83jIHnxENQiZSDiDEUvLPKf zUjhpb8ytF1pNr5+RBNnnGA6rD H4vB8kCoFhEyL7GVtyC122RcBf eKWbEmvfp2btv7kojVu0WoFl XJYfdnAdnRclVUT8u4VvPb21L5 9sIHdpZHRoPSIyMCUiIHZhbGln ka0xiR0nTm2+CT1km8oxsc31 uQ84sKX+JNMsJIQ6eJffMShcMB GlbX5lRMxeMdC6CACfOySkgU69 sVRcOKemPs5grUpzqVfqVE6w EEKphmkbx373ExVyw4ktMWGtrN MuJJupUGI1X77nz0Q9TMCkHDXz OPU7qNZ4jL0vmDahwgfeoDYd dQfompWfdUvuUGtoGZrqM048ZC NfzWwiDcEsrSJrI1tgwvVBMU1g OjwvdGQ+HOUaMBS2xKjvZYuz HIMmbK2wRANuO9k5PfJuXiZ7GC klF1YvkmP9PTAyyKRlLTHbjUXI kH3prsxrl0ukcbiqWmXnBHYq UIy6BWy4DEIxdXiyIkFaMNC3Rh J9SMT8vSEdqE3zvDcemknxrI8d Oyc+RklOOjwvdGQ+PHRkIHN0 aHekMQokPQJmnV8xUTDaF6x7Pb DwDhQ7DYasC6DtczG6ERIhxBYi BRHjoEKGtO7tulqtt2xwssov FzViFNTgFUq0KUi1HDVpaNqyXl TpWYL6KzW7TGE9mKAtdI0frNgq ldardZ3gFvh+TVJOOjwvdGQ+ SAQcQPH7kUbvMGggLEQijK7fPY TrM7z2NuXzVfH5DMhuP8MybiM8 GSMjhQChSKXxfYWIiY8ncexl d6uypaqgPwZnZLZdLGx2GWw9GV KwpDztIkGvTHT5TmL1ITF5dIRi dW2jtKvuxhyfsS0dKiy+UGF5 TPI6ER59ZK67O7XzOigoxHIdkR U+PHRhYmxlIHdpZHRoPScxMDAl KeOtiTmsTQ2fYz4cCDLeKDSd bGx (more content not included)... Normal [facility] CHLAMYDIA/GONOCOCCUS RAINER (SW AB/URINE/PAPon 02-09-2022 Chlamydia trachomatis, RAINER Negative Normal Negative [facility] Comment on above: Performed By: #### R PRQ #### [facility] [address] [address] [address] Juan Antonio Ibarra Neisseria gonorrhoeae, RAINER Negative Normal Negative [facility] Comment on above: Performed By: #### R PRQ #### [facility] [address] [address] [address] Juan Antonio Ibarra AFP MATERNAL FOR SPINA BIFID Aon 02-08-2022 AFP MoM 1.[address] [facility] Comment on above: Performed By: #### A FPMAT #### [facility] [address] [address] [address] Juan Antonio Ibarra AFP Value 66.8 ng/mL Normal [facility] Comment on above: Performed By: #### A FPMAT #### [facility] [address] [address] [address] Juan Antonio Ibarra AFP, Serum for Spina Bifida Report Normal [facility] Comment on above: Performed By: #### A FPMAT #### [facility] [address] [address] [address] Juan Antonio Ibarra Comment Comment Normal [facility] Comment on above: Result Comment: Melchor Chaudhary, Ph.D., [facility] Director . References: Available Upon Request. . Multiples Of Median Cutoffs For AFP Elevations Briscoe 2.5 Black 2.8 IDD 2.0 Twins 4.5 Abbreviation Definitions IDD - Insulin Dep Diabetes OSBR - Open Spina Bifida Risk . For further inquiries contact [employer] at [phone]. . This test was developed and its performance characteristics determined by [employer] It has not been cleared or approved by the Food and Drug Administration. Performed By: #### A FPMAT #### [facility] [address] [place] [address] Dr. Juan Antonio Ren Age Collection Date 18.3 weeks Normal [facility] Comment on above: Performed By: #### A FPMAT #### [facility] [address] [place] [address] Dr. Juan Antonio Ibarra Gestat, Age Based on LMP Normal [facility] Comment on above: Result Comment: Reca lculations are not recommended when gestational dating by LMP and ultrasound are within 10 days. Performed By: #### A FPMAT #### [facility] [address] [place] [address] Dr. Juan Antonio Ibarra Insulin Dep Diabetes No Normal [facility] Comment on above: Performed By: #### A FPMAT #### [facility] [address] [place] [address] Dr. Juan Antonio Ibarra Interpretation Comment Normal [facility] Comment on above: [...] Customer Services to discuss available options. The [employer] recommends amniocentesis be offered to women age 35 and older. Performed By: #### A FPMAT #### [facility] [address] [place] [address] Dr. Juan Antonio Ibarra [age] Normal [facility] Comment on above: Performed By: #### A FPMAT #### [facility] [address] [place] [address] Dr. Juan Antonio Ibarra Multiple Gestation No Normal [facility] Comment on above: Performed By: #### A FPMAT #### [facility] [address] [place] [address] Dr. Juan Antonio Ibarra OSBR Risk 1 IN 3501 Normal [facility] Comment on above: Performed By: #### A FPMAT #### [facility] [address] [address] [address] Juan Antonio Ibarra PDF . Normal [facility] Comment on above: Performed By: #### A FPMAT #### [facility] [address] [address] [address] Juan Antonio Ibarra Race Normal [facility] Comment on above: Performed By: #### A FPMAT #### [facility] [address] [address] [address] Juan Antonio Ibarra Test Results: Negative Normal [facility] Comment on above: Performed By: #### A FPMAT #### [facility] [address] [place] [address] Dr. Juan Antonio Ibarra VAGINITIS/VAGINOSIS DNA PROB Abdirashid 02-08-2022 Bettye species Negative Normal Negative [facility] Comment on above: Performed By: #### A 1C #### [facility] [address] [place] [address] Dr. Juan Antonio Ibarra Gardnerella vaginalis Negative Normal Negative [facility] Comment on above: Performed By: #### A 1C #### [facility] [address] [place] [address] Dr. Juan Antonio Ibarra Trichomonas vaginalis Negative Normal Negative [facility] Comment on above: Performed By: #### A 1C #### [facility] [address] [place] [address] Dr. Juan Antonio Ibarra ABO and Rh group post transf usion reaction Nom (Bld)Ordered By: Eleazar Hess on 02-06-2022 Microscopic observation Gram stain Nom (Unsp spec) [facility] ED Clinical Summaryon [address] [facility] Emergency Department [address] [place] [id number] ED Clinical Summary PERSON INFORMATION Name: ZULEIKA WYATT Age: 31 Years Sex: FEMALE : 1990 MRN: Acct#: Visit Reason: Rash; Medical problem - minor; POSS BODY INFECTION Arrival: 01/29/2022 20:27:46 Discharge: 01/29/2022 21:17:00 LOS: 000 00:50 Check In: 01/29/2022 20:27:46 Checkout:01/29/2022 21:17:00 Address: [address] [place] [address] [address] [place] [address] PCP: Andie Stoddard PROVIDER INFORMATION Provider Role [...] follow-up with their family doctor or their [employer]ERC[employer] doctor. To this they agreed.. Health Status [...] Use: Current Fr (more content not included)... 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 To this they agreed.. Health Status [...] out she was . - 11/13/2021 16:58 - Karina DURAN, Gracy Tobacco 11/13/2021 Smoking tobacco use: Current everyday tobacco Number used per day: smokes 1 cig/day Electronic Cigarette/Vaping 11/13/2021 Electronic Cigarette Use: Use, within last 90 days Type: Cannabinoid infused, Flavored only, Nicotine infused Use per Day: 1-25 Inhales/day Comment: States vapes nicotine daily but stopped 5 days ago when she took a test. - 11/13/2021 16:57 - Gracy Collins RN . Problem list: Active Problems (1) No Chronic Problems . Medical Decision Making Orders Launch Orders Pharmacy: clindamycin (Order): 150 mg, PO, Once. Impression and Plan Diagnosis Sebaceous cyst ([id number] L72.3, Discharge, Medical) Plan Condition: Unchanged. Disposition: Discharged: time 01/29/2022 20:59:00. Prescriptions: Launch prescripti (more content not included)... Normal [facility] ED Patient Summaryon 022 ED Patient Summary [facility] - Emergency Department [address] [place] [address] PATIENT DISCHARGE INSTRUCTIONS Patient Information Name: ZULEIKA WYATT Age: 31 Years Date of : 1990 Reason For Visit: Rash; Medical problem - minor; POSS BODY INFECTION Arrival Time: 01/29/2022 20:27:46 Primary Care Physician: Andie Stoddard Attending Physician: Johnson Wright DO Comment: Visit Diagnosis: Diagnoses This Visit Medical problem - minor ([id number]) Rash ([id number]) Sebaceous cyst (L72.3) The Pharmacy at [facility] is open Saturday through Saturday from 9A [...] alcohol and/or drug addiction problems; contact the [facility] 07/01 Crisis Hotline -Text 4HAMI oc [phone]. If you received any narcotics, sedation, or [...] With: Address: When: Andie Wyatt [address] [place], [place] [id number] Business (1) Within 3 to 5 days Comments: home warm compresses clindamycin for antibioitic see your ob, or Dr Wyatt, for recheck apt ----at some point, this might have to be removed; this is not cancer, but a retention cyst of fat material; Return if very red and tender, or fever, vomiting worse You are welcomed to return anytime. Call Dr Wright, ext [phone], if any question patric WRIGHT< ER PHYSICIAN< H [facility] Medication Information: The exam and treatment you received today in the [facility] Emergency Department were for an urgent problem and are not intended as complete care. It is important for you to follow up with a doctor, nurse practitioner, or physician?s phlebotomist medical lab assistant for ongoing care. If your symptoms [...] so we can reach you if necessary. [facility] Emergency Department has provided you with a complete list of medications post discharge. Please inform your keyseating machine set up operator/provider of your visit and for further instruction [...] Epidermoid Cyst (more content not included)... Normal [facility] TYPE AND SCREENon 12-30-2021 TYPE AND SCREEN Antibody Screen NEGA TIVE Blood Bank Notes performed by CV on 12/26/2021 ABO Rh Typing A Rh Positive Blood Bank Notes performed by CV on 12/26/2021 Normal [facility] Comment on above: Performed By: #### R UBIGG #### [facility] [address] [address] [address] Juan Antonio Ibarra HEP B SURFACE ANTIGEN SCREEN on 12-28-2021 HBsAg Screen Negative Normal Negative [facility] Comment on above: Performed By: #### H BSANS #### [facility] [address] [address] [address] Juan Antonio Ibarra HEPATITIS C VIRUS AB W/ REFL EX QUANTon 12-28-2021 HCV AB 0.2 s/co ratio Normal 0.0-0.[address] [facility] Comment on above: Performed By: #### A 1C #### [facility] [address] [place] [address] Dr. Juan Antonio Ibarra Interpretation: Comment Normal [facility] Comment on above: Result Comment: Nega tive Not infected with HCV, unless recent infection is suspected or other evidence exists to indicate HCV infection. Performed By: #### A 1C #### [facility] [address] [place] [address] Dr. Juan Antonio Ibarra HIV 1 AND 2 WITH REFLEXon HIV Screen 4th Generation wRfx Non-Reactive Normal Non Reactive [facility] Comment on above: Result Comment: HIV Negative HIV-1/HIV-2 antibodies and HIV-1 p24 antigen were NOT detected. There is no laboratory evidence of HIV infection. Performed By: #### R UBIGG #### [facility] [address] [place] [address] Dr. Juan Antonio Ibarra RPR QUANTon 12-28-2021 Rapid Plasma Reagin, Quant Non-Reactive Normal NonRea<1:[address] [facility] Comment on above: Result Comment: Kerwin ellison Note: This test does not meet current guidelines for screening and diagnosis of syphilis. This test is intended for following treatment response in patients being treated for syphilis infection. To screen for syphilis infection, a reflex cascade that includes both RPR and a treponema-specific assay should be utilized, such as Treponema pallidum (Syphilis) Screening [place] (749882) or Rapid Plasma Reagin (RPR) Test With Reflex to Quantitative RPR and Confirmatory Treponema pallidum Antibodies (132961). Performed By: #### R PRQ #### [facility] [address] [place] [address] Dr. Juan Atnonio Ibarra RUBELLA AB IGGon 12-28-2021 Rubella Antibodies, IgG 3.48 index Normal Immune >0.99 [facility] Comment on above: Result Comment: Non- immune <0.90 Equivocal 0.90 - 0.99 Immune >0.99 Performed By: #### R UBIGG #### [facility] [address] [place] [address] Dr. Juan Antonio Ibarra CBC AUTO DIFFon 12-26-2021 BASO # 0.0 103/ul Normal 0.0-0.1 [facility] Comment on above: Performed By: #### A 1C #### [facility] [address] [place] [address] Dr. Juan Antonio Ibarra Basophils/100 WBC (Bld) 0.3 % Normal 0.2-2.0 [facility] Comment on above: Performed By: #### A 1C #### [facility] [address] [place] [address] Dr. Juan Antonio Ibarra EO # 0.0 103/ul Normal 0.0-0.7 [facility] Comment on above: Performed By: #### A 1C #### [facility] [address] [place] [address] Dr. Juan Antonio Ibarra Eosinophils/100 WBC (Bld) 0.4 % Critically low 0.9-7.0 [facility] Comment on above: Performed By: #### A 1C #### [facility] [address] [place] [address] Dr. Juan Antonio Ibarra Erythrocyte distribution width (RBC) [Ratio] 13.5 % Normal 11.0-15.0 [facility] Comment on above: Performed By: #### A 1C #### [facility] [address] [place] [address] Dr. Juan Antonio Ibarra Hematocrit (Bld) [Volume fraction] 38.9 % Normal 36.0-48.0 [facility] Comment on above: Performed By: #### A 1C #### [facility] [address] [place] [address] Dr. Juan Antonio Ibarra Hemoglobin (Bld) [Mass/Vol] 12.9 g/dL Normal 12.0-16.0 [facility] Comment on above: Performed By: #### A 1C #### [facility] [address] [place] [address] Dr. Juan Antonio Ibarra IG # 0.03 10e3/ul Normal 0.00-0.03 [facility] Comment on above: Performed By: #### A 1C #### [facility] [address] [place] [address] Dr. Juan nAtonio Ibarra IG % 0.3 % Normal 0.0-0.5 [facility] Comment on above: Performed By: #### A 1C #### [facility] [address] [place] [address] Dr. Juan Antonio Ibarra LYMPH # 1.4 103/ul Normal 1.2-3.[address] [facility] Comment on above: Performed By: #### A 1C #### [facility] [address] [place] [address] Dr. Juan Antonio Ibarra Lymphocytes/100 WBC (Bld) 14.5 % Critically low 20.5-60.0 [facility] Comment on above: Performed By: #### A 1C #### [facility] [address] [place] [address] Dr. Juan Antonio Ibarra MANUAL DIFF REQ NO Normal [facility] Comment on above: Performed By: #### A 1C #### [facility] [address] [place] [address] Dr. Juan Antonio Ibarra MCH (RBC) [Entitic mass] 29.6 pg Normal 26.7-34.0 [facility] Comment on above: Performed By: #### A 1C #### [facility] [address] [place] [address] Dr. Juan Antonio Ibarra MCHC (RBC) [Mass/Vol] 33.2 g/dL Normal 29.9-35.[address] [facility] Comment on above: Performed By: #### A 1C #### [facility] [address] [place] [address] Dr. Juan Antonio Ibarra MCV (RBC) [Entitic vol] 89.2 fL Normal 81.0-99.[address] [facility] Comment on above: Performed By: #### A 1C #### [facility] [address] [place] [address] Dr. Juan Antonio Ibarra MONO # 0.5 103/ul Normal 0.3-0.[address] [facility] Comment on above: Performed By: #### A 1C #### [facility] [address] [place] [address] Dr. Juan Antonio Ibarra Monocytes/100 WBC (Bld) 4.6 % Normal 1.7-12.[address] [facility] Comment on above: Performed By: #### A 1C #### [facility] [address] [place] [address] Dr. Juan Antonio Ibarra NEUT # 7.7 103/ul Critically high 1.4-6.5 [facility] Comment on above: Performed By: #### A 1C #### [facility] [address] [place] [address] Dr. Juan Antonio Ibarra Neutrophils/100 WBC (Bld) 79.9 % Critically high 43.0-75.[address] [facility] Comment on above: Performed By: #### A 1C #### [facility] [address] [place] [address] Dr. Juan Antonio Ibarra Platelet mean volume (Bld) [Entitic vol] 10.0 fL Normal 9.5-13.[address] [facility] Comment on above: Performed By: #### A 1C #### [facility] [address] [place] [address] Dr. Juan Antonio Ibarra PLT 194 103/ul Normal 150-[address] [facility] Comment on above: Performed By: #### A 1C #### [facility] [address] [place] [address] Dr. Juan Antonio Ibarra RBC 4.36 106/ul Normal 4.20-5.[address] [facility] Comment on above: Performed By: #### A 1C #### [facility] [address] [place] [address] Dr. Juan Antonio Ibarra WBC 9.7 103/ul Normal 4.0-11.[address] [facility] Comment on above: Performed By: #### A 1C #### [facility] [address] [place] [address] Dr. Juan Antonio Ibarra CULTURE URINEon 12-26-2021 CULTURE URINE Culture Observations : LIGHT GROWTH OF MIXED GENITAL ALONSO. NO POTENTIAL PATHOGENS SEEN. Normal [facility] Comment on above: Performed By: #### R UBIGG #### [facility] [address] [place] [address] Dr. Juan Antonio Ibarra GLYCOHEMOGLOBIN A1Con 2021 ADA RECOMMENDATION SEE BELOW Normal [facility] Comment on above: Result Comment: ADA RECOMMENDED LIMIT 4.0 - 6.0 ADA THERAPEUTIC TARGET < 7.0 ACTION SUGGESTED > 7.0 Performed By: #### A 1C #### [facility] [address] [address] [address] Juan Antonio Ibarra Glucose [Mass/Vol] 114 mg/dL Normal [facility] Comment on above: Performed By: #### A 1C #### [facility] [address] [address] [address] Juan Antonio Ibarra HbA1c (Bld) [Mass fraction] 5.6 % Normal 4.5-6.2 [facility] Comment on above: Performed By: #### A 1C #### [facility] [address] [address] [address] Juan Antonio Ibarra US PREG TVon [...] by: FELECIA GOLDMAN Date: 2021-12-07 16:59 Normal [facility] Coding Summaryon 11-21-2021 Coding Summary HTMLBase 64 JiunebiiPVf3wIm+PGhlYWQ+PE [id number] ZLKUDYUHAT1YBG5dvZR6VEzlX0 VybiAv KmudsWTpCP90VQl5WNM2yRwjLT yzxE8owRDoH4i6CrNkDT45dK49 QDwiMONtIlW6AdYcyfgpkACb C9jhDlAfhBPeSsf+PHRhYmxlIH bnFIViUCdpJMVyMrEgiIxqJU5l Jn7gUYVkBMAkhXojyFEqYbQf q4exNCKnAXbxRI2meSqcJ4SsbQ O3WMWwb3f1Ig76aHZ+PHRkIHN0 oQghQScfe161GmTeq8sqLIQ5 hWPkJFffDMC9X13br0D9QPGzUG WdHID9dNI7bC5qwTrzflblL4Ut lLMvPbV8EQB6wJTuzK4fsZkd zjnzeD3bAkb+C84QMM2YVLFUPF 6BPoo0J4FvZmyjaNT+QU44NIFh IJ33tKKooJNow9rjlZs6IjDb JIUxJDG1wFdwZUlzz0HsYHKyV6 7lrTZob6O6SWZaaXamlVCfSuSn mFO4tI9jTVrorxtxy5jkldvu Ldyai2keju46lI26O66zZAxnKM FvOVL0SQLiCDHtjVzdpq8ntU6i Ii8+ONlis0oan8ofyEy6HaSx QSVhknKmdBxmLDA5v8FgYe19X7 LshSehg0BkAbl0li28mUCvt9R7 lBV3EEauPSUxbE2cLBohGsW0 AKNbDuKqdC24bIXwEPkiCx7cwP jiyUvzJQ6eZVAxqcxzBDTkuG7s IEEdfHHlcBmnXL3iNPVxbqgm d732OwKmBZV9NXQrpWDlC6VwaZ 5fQpVuHKEvLSHiI8WpvLPwNWnh S073BMaiVsU0REGugzNgF1Xe CTPyzDohHqR3e0O5Do4Fu4Xsuh myLZV0FYixZDO2EgV0OzZgSlL0 I4NhCqa0EBDgtWkiJQ1yC0Rc LDVtpoclbvfkkRT6EFFjBESrlQ 78pSTyJZooHp8ap0C2n928NEFm DBUciZ97Ps4xhOmyFEWflFGR nU9brxeli1qusbxgGnXvJJGdAA r5TUb5NWRtuUpiAnVkLAN6RnL3 KNK0iGWroW6gaFoyzkzudV7v Oyc+J42lqE8lPUR2FGG5jfekSD UuxvLyIX55HY16C2XoHxuggAVr bGU+GJYcxhQnkVbrQW6wEgHe m0wpc1PdGFwbM5DaUAAuYJtiBn y9KCGcGMZ1iEH1iD9zILSeLCuf o0H2xKU0W7XirjFuwd1gr2yv PFTmPHquK77uvAWau5G9ZVMdiP I5YOYbmAtsLpWseN88Rcp+PGNv fNoej9NeCptmz5ddy7nwhEj9 YgSwTLDhfhJvjQtaFGX7g3QsKk 14V39oPYtgWARtCSLrMGPcIVHr vSojdy4ntG3sJe5+PGNvbCB3 zGZ5pY7kTEKkLeI0APlmX686Xg ZybJLiCsngq0try4ljhVz2EgGy DADtnrSvfWmdNGY4o3OlVv93 E84sQQicQEVhZIUeZMUgJAQqiV nwwu0aaR5jXk1+IR1uo1ctwo65 oI46cPN+ROVqRNV1aVttXPdd YCAxkA7fDRqfPrX4NZMcYiHytJ 87aXEnLTilTb3yeRhekVceZK2s ERYeblzyl351XpIzp6zxMYAn jUTnICboQSH4H62fj5F1JGHiBT TnCOE6yEY6uP3kfPvuhoekjSDo qEmyvjFjsGkxQEnuHHmkG967 IHRvcDsnPlBhdGllbnQgTmFtZT a4X9JxCrp5ADSnvTqdNQ6ehHZp QRetXz1yeJvafMnqSU1jIKOz hxymn221QkBje6tbJFWujSPpBN irOMR3T57un4Q9ECOdZUSfIEM5 nTX2xI7jcAibclvbbYMuvOai lwVeqZinTCkxBFcpZ660NGGxqK hmKwTrybIaEPOayBM1AF07DA81 rQAzf8W4mTQ1N0RkTFDszvld qlqgbPH3AZKxRZWpmI69Mp0qiK oeJd6pZISbAWV5BBEylEUuJ0Nu uD8pByMwHRGeCPEfG7KbiRQu QRlsJ062MOinCkH1QEVxyfQlO0 TnWZIwzAdsRhL1q8C9Vu8KI4E4 MR60DQ22jOZnj7Z5fRF7S5Id LTHyixgbzdgjlRB6OMNaSEItfS 70Ud7ydKfxUi2nPQMeJLW5LTVx qBMwR0HdwU9kUrOuKSJnPEBp E8EhyITmPMcjV281ZWsfRmC7TS MskzEcO5KxBCWnxUnyZjJ9a3U3 Jl8EEKg2WL78BC41vJGrx1N9 gJC3X0JuGFHlqubrzmnwzWF0LZ UbHCXxuW41Aa3rwNtyCc5yTXJo TXL0OKJmhFOkW1OoyH8zAsGk LLXhGBCxC9DrjTYlCBzdA674PE ygLoK5OLNyjgSjZ1KhXRToeKds GeG3y4I7Rg6BPDQbQG09TWK0 iVY1XP90VH66T8HaPqcplBRzbV U+PHRhYmxlIHdpZHRoPScxMDAl OdHuoTtoVX2zRq4bMOVjNBBk yWomiOVtMzGud1jpOARlEPbgWN 3saMvuE3MmgSP4CLYpb7d9Ps80 Q46mH0VirSO+FYNjqFX4oZU8 hH6dWkCwNxH7EZpsH566QbVipS QrZyumd3uzr9vzdAy2RvU8DXZi yoKdlVcdLQH6u3JwRl87V80z IHdpZHRoPSIxNSUiIHZhbGlnbj 0smN2qFw5+KTEwpSI8pGF0pP0c BhBlWsC6JPafV100AhElqTCq Ztkoy7evm5znzUb8QtEhQBUlmw RayVotGTS7m1BuYf59S6FihJup a4KsFdb4ng28eQWca5A2xJQ2 R1MfMLElgzljtIGpiAziLW4eZP MgsfpyBWRfiY5zKHKdD6n0HxUu DfB9DBcxO0VxdbF1KTXbjPLx NGepGLJ2Y53nf1W5XNSuJGDwHQ Z5tVO4lX9ipJvglbdtsTItdMdo msLihJmpDZmiGVlbL711JNRu xOhcWOKjaV4wMKOtlNOowGftCY 4wNTBpbjsnPlNURUlOLCBWSVJH FW2PBYJZYGT4A0RdEqb0PBLk xEjkHA5szKCoDIwzPg3gfVszcF crPF7tWQJsbdxoVQHyxE4yPESt pRKxqVftSQ7sAYRkxzazl283 JtNhDTW3TISnhINwN2EwiD6jNj MlKLCjPHCxN4UzgLLvJPofZ452 TRgxXfU1GQMehvMyZ7HmEAJf jPfkOoS6z8L3Jr7cVH5eAU2gOU ydQR21XF62mZJph2I1fVA4Y4Xi SUWpbwcrtuskvEZ6WLAvBFSc pS95wSPtIJloGm5jb7Q0x668AG MiDYCgnV55We9mvBtqCQHudTCO dY1ycidnh2pofyaiYsLjAPVn XHq7SGk3CXGzhQklByJdJAQ1Or E3QBJ6wSSzdE7paKikuhafuW4o Oyc+ZqbiWUBdgvM3M0EaMpd6 NTVopPdyFV5epYSyGZpxAa5iaI qctIqnCF3eYQGudeaxSJKpzM9e UOSgjEGdyHhxOH6tXSYnhavh r008CoVsESF0GQVoaBDrT6KmpE 8yPxXxHAVsZHDyQ0TdcNEaVUmj D672INyxLaT9QEPrzeItR8Ed UBCxgZqiIxR1k8P8Zt7POL9QBC F9U6QrVwv2HNVczCagAH7acQEz LXdtGa8buJpwiJlgTI3bSBEz uyceSAPdzG3bTCLtnAPxvRkcET 6nMAMpmffef863LgGeVKN4NVNq fZFyI0FcaK1yTpVpPULcGENz V6JnvFMeZNbqX011VVwyJlF8ZT GodpWhN4PyHIUqeUksOcS7e4M6 Cg1XFVrqoYM+PW45eo46M5Hh XernIhv6BEJuUPN3sYB7mQ0bPC PcEKqzb3J9qRT2R3CvnxQyio2k t3liLWEfIEwuE87ouIAul8L3 CYIzxYK4SRUbnKajHmOmlD72Eb c+DSQghTzgc9HoJvcmr6wvg1dc rCj8XiKpZKRfamCstNzkZQR5 z7AlMc97U88vXWhqQZQwFLGgDQ ExGUDoaRyyss7mmW8aMx4+PGNv xHZ6dUD8hH3gTcCsAfC6WLzc M739QsVckSUdVidie0gup5lnmR n3AlRyJRErakNpdRejQVQ4q0Mo Lr84O2OfeKebd0VeKfc7jj60 cZRmh5S2uEI4L9PbAPRwcgzniP QbtGwaRR0iDVDhaijqGHDfgF9u JNTpP7v2TcJqIfE9TJhtU4Zr rkM3HNRouDInMWGrlGTOuW3eji jba3mcayjfKdIkYSVgJEn3DPz0 KOParGmbZnDgOYQ9GdG5FHS5 eSEhbK9mxOfbfjolhA2nOek+UG z2j2ulsMEhVI2zoYH8AT44NJ07 fTSaa8G9jTX8E5JhRDDuiolo fsswnTS1YLYcXRAfpB05Cv0jsJ euXk3vBUAmYBS7UOEhjUJjP7Dd pI7gLxFpEJWkTUQfJ8ThgNOc HWirI114KTxaEyI1OGQoxgCsW7 BdESLkeUovGgB3d2I6Vp4HZH48 RM04BM20hWIbm9X3tTG7X7Jc BZAauwftbwgywQG2KNYdQNVyvU 94Iu2brJtpOg6gVKHxBJX0LYRm bKHhB1UmpN7hLgGjDCXuGQMc G3IzhDPmZVsbV590IGxxQuI4LQ RmviCpW3KgYFLttGloGmZ7s9Z5 Oq6FOq73ES98XS61iTFmv1O9 hGD0H2ZkSYAetmcyyoxkmVE5ZE JoRLRxwA40Od0xrHgvAn2yFOIe VGI1XIHcqCYrA6XipT4jTkNw GFXiKQTgN4ThjDBuAFvjK514TQ ouObH4ZGCzmkKcU2EpUGCxsPth FiP9g4C1Hi1CXPqgxgg4G6Qw PjwvdHI+RG48UJVgNF62cXGhvX Jiu0zsxDp5FhGhNFXwEDY0aMda YVfwc9RdVSSnG08lbXZbp2J3 IGN (more content not included)... [facility] Coding Summary HTMLBase 64 HcyxodjhFLc6qFv+PGhlYWQ+PE 6PRYCcV95ocPZysV6TG6xNMU2Z CUWTKHBKFJ0EXP4bdPI5DKcrS3 VybiAv ZwruuQXyGF17ABd9PZN7iNkwJK felF0knGCrU3h9YuOxVO80mP72 QLvqWTIvBkZ1VlEkgzmtdJNe H9unHyYehUPrTco+PHRhYmxlIH wkLWXvPLozYVBeCrPttVcdWZ8t Bg0nZCFaMCMzwQbnfFSySnAh l7bdLPNlROtrQP8mjBhwY9GkbL A4CCXxp6r6Vk59cOZ+PHRkIHN0 eBtlTXnvz889RfWwf2njHBS7 mNOpBJnuPXX3K45wv1Z9PYVmAP FhGTY9fZZ5sV2pzUubtdhfO9Cn tGYbEpO3KDB5eQVsqM6gyIyn hkfmqG4tJyf+V89UDR5JVSKWPA 3EOvi6M1KyCyduuQR+RH32XTMg VO69aXHdlOObx7hpqCu5SdNm NBCsVGA2kPhsQGlya3JmNNNiB8 4wlIBty1Z3HMIvhPeivBFnNbVq sDX6kT2fZPjobuqyf6hkntpl Jrxqe9rfql15xN35X05cMQluUL PgJWU7OCSeSDXufHhitw4afJ8m Ii8+LUlze8qsb0pmuUy0PdFu PUGjlkJtvVfrDCJ6h4WhEp57C1 AbtLcxg0VtWbu6ii64dHZkb9D7 gNB6JLhkVNPnvW0vYNomUtF0 WTZmDvNddU41pVNmODxwFc8ctN ktjDowBO2kMACsfivgTTBhmB9p GHVdtFTelJtpIC1cKNVsiutb c280RqLvGSZ4RQGvjUQcI0PwfI 9vKbDdJDDzOIPvX6VqnDQoTAlj Z018XAgqKbV8OKAlxrFuU4Tr BZTkyZoeKaC9n7B0Nr4Aq2Ryhs zvIMN3QFhdMKU9SwD9HnDrDfG6 V1LkYho2YSEgrTuxCG0qD3Pu YEMdhvghjekayFM0XUIqBFBniT 63iENtRMbxRk0od5C0e936FEFq OFGksT34Ys5xlRtoSGZzrNRL gB2hpehup6dwsvykCtAhQPGdNH v0MDj4UQZubGqqVpZrBQI7FyI9 QEN5jZAldE0bzSjeqyujjZ5s Oyc+W21veJ5nDYH0ZGA3qhleSC CicvGpZD20PH99L1RnEfqrwUFo bGU+ENRqabCmcRxbJP3mMgXg t5xpc1CsCIbiW8ShMNCdTHakPi n5BPAbGNZ7lBB9cA2zWJIyLJfp v3A4sWK5C0UvmzFuos5sp0wx ZTKyVXasG35syBPtt7L5OBSthZ O8LDMpxGttYzTicK73Jld+PGNv jVbce7JkAlrbh5ete1sleXb9 AlVbXVBseqVdbWctRPM0a0FuAb 68D53mPFraLIMrLKZoRLSqIOXf nTouvi7apB4bKf6+PGNvbCB3 oDA3aV6pMYFxNeU4IVjzW719Mo VhnDLuFzfjw2xvl2vaqVp2ZwRt FJYspmUhnMpbZDM8h1KcFr59 W39gBSnrYWPrXAPeLWUaRMUhaB khui3bkT0kRw5+LE1to8zait44 iA66iJV+CGJpRBC3oMypDQee GTHzsV0wSHkjQpW4YJTnCbXxjY 91iTAdPKvhJh4ceXlznJoqQT1s PTAftaarv297EvQum9ciDKRf jHIzMVfyUSL6F92hs0P0YLXfQM ZoRJB8tIY5aC5kvIdhrmrqpRIg oRkeyvOicAfsECwzBYeqV955 IHRvcDsnPlBhdGllbnQgTmFtZT q1C9FoXdu5JPQaqInoKY8csFZx NLbhDs2hfRinpMrwZO0dVRGx fpdtc116NrDnm1kcXIGcpAWlPQ vbFRF8H91yl4N6BNFcOSHtSRQ1 xLD8nV6gaIsxamqysUEgeEzp wxOleTyoHHgsZTudV665LURpwY bdNgFungRoVSPvwAY6FE69NE44 wETxh5I5pBS1B7WmYSImjcat zfasoNH9BJGuOBNvmT92Gu5hiP zyDf8lUZLgGEO6GLSuzIQeW4Vp aF2hPcEnMAWlEFQfL7ElpLNs NGkjU287XUwgSeR6MKPgebPbC7 VxUSExvVfpIrL3t7Z8Go0EJ3H2 KA72VY42zWAmy9F0cUU4W8Jv FRYfkcxijzighYJ2KFWgSSWxzZ 59Ge1ugBurPj8dOYNhSQJ7MOPw dDOzQ2ZupT0bIaJsXWSgSKBr E4GfkOVhEJxxM376TDxeVyS6NJ VapiExK8RxDNOptQmjXeO4i7O6 Td4SCPm7FR92LN14zCKbw5N2 tPQ6N8IwSLJeccovjtdmmJS2NO CgMSHzqL80Ti4qoYdqFu7oVLCi ORC3UPOugRQjW2ZxtS6sAkUh GAVgWPWxN6SbyHNhCRmvS514ZT jxGhH1PIIoqpUtW5FrXWPyeHdz UzT3i6X5Ac3CRNDuNJ07OZT4 nIE3DE82PM98I9HhTryrbZSwyX U+PHRhYmxlIHdpZHRoPScxMDAl VeYirGkbOO9tUw1iTKBlFFUu dNmjwDTbVeWlg6tcXBTpIPmzVP 6sxSszX9UwnOC2JKSks9c3Fz66 T41uF2NnyPO+OLNkbRB8cUX3 dP9zAfEeRwJ0SCdmY674TdJuiE VhNtjfh7cyp5eaxNu3VtF8AKUk mpIlcJktPOF4w1AyEh76W51a IHdpZHRoPSIxNSUiIHZhbGlnbj 8ulT0lTq6+HGOeuQV9mMT0kF8e UqFaGsV0MIbbL600ZjZogECy Nylxg3snh0chkHk0UuGnHMMwes VekYhjAMU7j6DjGk79Y1QzpWkm e6FgLpq8gb22rVZyv2E0cSO6 V7AuEAVqsgibgBEcyDqdFC5tGG GrbakhMFEvlM0qETDqE0n6FcQj OaD8MHeoQ5OcghC0XLArjWCr HFguQED8U85sn8L0WAJrIIPzDY A9xVJ8pL8urIypynimuPAsfSfj syGidGgkJQlpBZmvR392NEZa hSuxTOOjzY1kQMLuvZYuiJisJO 4wNTBpbjsnPlNURUlOLCBWSVJH VG1JKROZDHY1V3DtVel3XLRl eCnmWQ1hxWLyNYiaUk3twYiwkS sqDY6nDUUxapbjASSugL3wHQHw qDCkbHpaQJ8aYCGebuhsn841 BeTsRJD6TMRtgAUfK7RgzQ0nZk SoBWCiLKUvV4NdsOPcAWgbN991 CVicXpT0TFWdzoHaQ1MjTDSe yXegClN2d6S2Xg5hRC5pTW3bPE lrIZ71RH14yBUlh0P7pTG0L6Lr HHAysstercrvvYS2SVAiAFAm yU55tRQjKBtoNf8zn6S4s987SP KlOAZssG07Ds8rvWksROIhuLRB zN1thkbhz9rvlbxqPuDhDIRm OEf3GDp6SAHlhEsbTfVyKXV4He F2IZX9zBShaO5rsGyatxmdlW3v Oyc+JapuDOIxprY2W0ImRsv0 SICefIuyDV4ktCZsUTcnUw4mjE yveMyoLV1cNBGhvweeSKPjvR9i STGmcMGciCtuOK0iBCKtrije x622KfDcHXZ3QANveTQiY7QkbH 1nQkHiDVEpSNYcD4ZvnICrOMoz O999DUnpWtU9AGPutdJjV6Hj GCOgiSgrEsA1q5W2Rm7ETY8HFW V6Z3CiUpg2ABJfwPchMX1udWHp CHelZw5wcNwjyLizGQ9qBTGi wutkBIEhsG8mJQTskIBipWujPC 1bFUXbkayge583SxDpRBA3BGVo kOIbK0AzdD9gVsVsTKOaGKKh A4TmnDTjNZtjG609VDhqNvZ2XZ PjddNcH6AhJVWlaGhkYcL9x9J7 Np2PqLZiY9ShU6r5P9NjZgsm dHI+OI92TKErAL89cMZgaIXxr0 qxhPm3TiDaXRUsBNG2aKevBJol h1XvQXNrJ04dyZMqs9Z6AKVq dBeppHMoFjTfoNA0lL1hYOfzim vsu0ozfcimGbjyq1oiud71xM19 E51fWZvfYQTlYEBgNQGtVAXp gHctrp5keE5zWz2+OXAbfJE8wL B2rI7sCnWgTaO2IYugF386WqMx uLMyJhnyx4lay5ayhJu9UfDt RKMqymHouLkyNCB4e0MfMf51V8 9sIHdpZHRoPSIyMCUiIHZhbGln jp2thE0tXx6+EC7tg9adkm02 lQ56tTS+YXFkJFX0qHhyIDljLT PvuI8hJFeoZuV6ZVYaYnPqgG07 qWCrGWmvVz3wkKwdzThbAX2r QDIarbfif536DmIah5iqHLZquD WwUErqZIM6P84ou6U9NYYzLCUh AYE2jCW1zY9wrGhsrmyhiBTl lOufmmPdnPbwVHdlRAjlH040AM AucDevQcUzsEXrU8dqtlJMKL7s OjwvdGQ+ILOzJNE2vGzbEFoh WAFmmN2vSVWfU6z9EiSsBsR9WT zjU1KcxgJ2IYGztDCoZSZphYTX pM8verios9nxwzliOqCoWDHt CEz5XJj0RBWqeFujNiNvMLG3Qi U2FHB9tOSjjB8vgAohcljsxH7b Oyc+RklOOjwvdGQ+PHRkIHN0 wPegYFydCRFijR2sPMIbP6s9Of UnUdR2FWyuK4XqirV2LBEggKTz EHKznOPKkI1qrgqtv0wkbyzg KcJeYBRbSXt2YIx5GHEdrNciNk EjHJI0WqQ1JMV9oYPgoH1phTgt iushhZ1eYgy+TVJOOjwvdGQ+ VINePQP5kYibJAguOWDnhN7sIY AzZ3m6QnAaVwT7JGwbY3RsdaU1 NWYdyFDnXRGcpMCKmB7ednld d5jajbpyCoMnTRJoDXo0KVo8IS TvnOfzIlBcKPE5MhL2UDV9rDMd wJ2ntUpyznxvqT9gYfj+UGF5 MDQ3EA31OR83E9HmPndmhJCqaY U+PHRhYmxlIHdpZHRoPScxMDAl ItXnwVydXV2jXc4xNQYoEJUs bGx (more content not included)... Normal [facility] ED Clinical Summaryon 2021 ED Clinical Summary [facility] - Emergency Department [address] [place] [address] ED Clinical Summary PERSON INFORMATION Name: ZULEIKA WYATT Age: 31 Years Sex: FEMALE : 1990 MRN: Acct#: Visit Reason: Rib/trunk pain-swelling; ABD PAIN Arrival: 11/13/2021 16:30:24 Discharge: 11/13/2021 18:01:00 LOS: 000 01:31 Check In: 11/13/2021 16:30:24 Checkout:11/13/2021 18:01:00 Address: [address] [place] [address] [address] [facility] [address] PCP: Andie Stoddard PROVIDER INFORMATION Provider Role [...] Instructions: Hypertension, Adult Follow-Up: With: Address: When: DIANA, CUONG [address] [place] [address] Within 1 to 2 days Comments: Diagnosis [...] results be sent to Dr. Ortiz, your HORSE EXERCISER physician. She will contact his office tomorrow [...] understanding of instructions given Comment: [facility] ED Note-Nursingon 11-13-2021 ED Note-Nursing pt [...] steady gait and no assistance. [facility] ED Patient Summaryon 022 ED Patient Summary [facility] - Emergency Department [address] [place], [place] [id number] PATIENT DISCHARGE INSTRUCTIONS Patient Information Name: ZULEIKA WYATT Age: 31 Years Date of : 1990 Reason For Visit: Rib/trunk pain-swelling; ABD PAIN Arrival Time: 11/13/2021 16:30:24 Primary Care Physician: Andie Stoddard Attending Physician: Gamaliel Wyman MD Comment: Visit Diagnosis: Diagnoses This Visit Elevated blood pressure reading (R03.0) History of abdominal pain (Z87.898) at early stage (Z34.90) Rib/trunk pain-swelling ([id number]) Prescription Information: If you have been given a prescription for narcotics, seek immediate medical attention if you have any difficulty breathing or any sudden status changes such as confusion and sleepiness. If you or anyone you know is experiencing suicidal thoughts, mental health, alcohol and/or drug addiction problems; contact the [facility] 07/01 Crisis Hotline -Text 8IKUC qc 029032. If you received any narcotics, sedation, or [...] legal documents With: Address: When: CUONG ORTIZ [address] [place] [id number] Within 1 to 2 days Comments: Diagnosis [...] results be sent to Dr. Ortiz, your HORSE EXERCISER physician. She will contact his office tomorrow [...] you received today in the [facility] were for an urgent problem and are not intended as complete care. It is important for you to follow up with a doctor, nurse practitioner, or physician?s phlebotomist medical lab assistant for ongoing care. If your symptoms [...] so we can reach you if necessary. [facility] Emergency Department has provided you with a complete list of medications post discharge. Please inform your keyseating machine set up operator/provider of your visit and for further instruction [...] Temporal: 3 (more content not included)... Normal [facility] hCG Quantitativeon 2 hCG Quantitative 46064.0 mIU/mL High 0.0-0.6 [facility] Comment on above: Order Comment: Lucy whitney call or fax results to Dr. Ortiz's office Result Comment: Resu lt confirmed by dilution Post-Menopausal Reference Range is: 0.1-11.6 mIU/mL Performed By: #### [id number] #### [facility] (DEFAULT) [address] [place] [address] Coding Summary.on 12-19-2018 Coding Summary. CODING DATE: 019 FINAL [facility] DSC STATUS: Left Against Medical Advice PAYOR: Medicaid [...] Boykin Date Saved: 12/19/2018 10:35 am Normal [facility] ED Clinical Summaryon 2018 ED Clinical Summary (Inserted Image. Elena ble to display) [place] [id number] ED Clinical Summary Person Information Name: ZULEIKA VILLALTA/[facility] Age: 28 Years : 1990 12:00 AM Sex: Female Language: PCP: Marital Status: Phone: [phone] Visit Id: Visit Reason: Test; MENSTRUAL PROBLEMS [...] 12/15/2018 5:58 PM 12/15/2018 5:58 PM ADDRESS: [address] [place] [address] [address] [place] [phone] PHYS DOC NOTES: MEDICAL INFORMATION: Prescriptions Given: PATIENT EDUCATION INFORMATION: Instructions: Follow up: DIAGNOSIS: Normal [facility] ED Patient Education Noteon 12-15-2018 ED Patient Education Note Normal [facility] ED Patient Summaryon 019 ED Patient Summary (Inserted Image. Elena ble to display) [place] [id number] Patient Discharge Instructions Person Information Name: ZULEIKA VILLALTA Age: 28 Years Arrival Date: 12/15/2018 4:37 PM Discharge Diagnosis: Primary Care Physician: Provider Information Primary Provider: Advanced Wrapper Layer And Examiner Soft Work:None The exam and treatment you received in the Emergency Department were for an urgent problem and are not intended as complete care. It is important that you follow up with a doctor, nurse practitioner, or physician?s phlebotomist medical lab assistant for ongoing care. If your symptoms [...] opioids can be used to help relieve aavrlcyl-od-dqyzei pain and are often prescribed following a [...] be struggling with addiction, tell your health childcare administrator and ask for guidance or call [facility]?S National Helpline at 6-683-304-HELP. v Source: [place] Department of Health and Human Services/Center for Disease Control & Prevention [facility] Medications Given: Medication Dose Route No medications found. Medication Information: Comment: Pharmacy Information: Thank you for choosing [facility] Patient Education Materials: JADEN Jacome [place] , have received the following patient education materials/instructions and have verbalized understanding: Patient Education Materials: Follow-up Instructions: Prescriptions: Patient Signature __ Date Clinician/Nurse Signature Date 12/15/18 17:58:10 Normal [facility] Progress Note-Nurseon 2018 Progress Note-Nurse Patient: EDGARDO VILLALTA Age: 28 years Sex: Female : 1990 Associated Diagnoses: None Author: Jimena RN, Soha Whitehead Progress Note This RN updated pt on results due to request. Pt stating she wants to leave at this time because all i wanted to know is if I'm or not . RN states she should still be seen by a provider. Pt states she needs to leave to take care of her daughter. Normal [facility] U BetaHcg Qualon 12-15-2018 HCG.beta subunit (U) [Moles/Vol] Negative Normal [facility] Comment on above: Performed By: #### 2 [id number], [id number] #### [facility] [address] [place] [address] UA With Cult Reflexon 2018 Bacteria LM Ql (Urine sed) TRACE Normal Trace [facility] Comment on above: Performed By: #### 2 [id number], [id number] #### [facility] [address] [place] [address] Bilirubin Ql (U) Negative Normal Negative [facility] Comment on above: Performed By: #### 2 [id number], [id number] #### [facility] [address] [place] [address] Clarity (U) CLEAR Normal Clear [facility] Comment on above: Performed By: #### 2 [id number], [id number] #### [facility] [address] [place] [address] Color (U) YELLOW Normal Yellow [facility] Comment on above: Performed By: #### 2 [id number], [id number] #### [facility] [address] [place] [address] Epithelial cells.squamous LM.HPF (Urine sed) [#/Area] 0-2 Normal 0-2 [facility] Comment on above: Performed By: #### 2 [id number], [id number] #### [facility] [address] [place] [address] Glucose Test strip (U) [Mass/Vol] Negative Normal Negative [facility] Comment on above: Performed By: #### 2 [id number], [id number] #### [facility] [address] [place] [address] Hemoglobin Ql (U) Negative Normal Negative [facility] Comment on above: Performed By: #### 2 4409077, [id number] #### [facility] [address] [place] [address] Ketones (U) [Mass/Vol] Negative Normal Negative [facility] Comment on above: Performed By: #### 2 [id number], [id number] #### [facility] [address] [place] [address] [place].plasma/[place] .RBC (Bld) [Mass ratio] 0-3 Normal 0-3 [facility] Comment on above: Performed By: #### 2 [id number], [id number] #### [facility] [address] [place] [address] Nitrite Ql (U) Negative Normal Negative [facility] Comment on above: Performed By: #### 2 0808103, [id number] #### [facility] [address] [place] [address] pH (U) 6.5 [pH] 5.0-9.0 [facility] Comment on above: Performed By: #### 2 [id number], [id number] #### [facility] [address] [place] [address] Protein (U) [Mass/Vol] Negative Normal Negative [facility] Comment on above: Performed By: #### 2 [id number], [id number] #### [facility] [address] [place] [address] Specific gravity (U) [Rel density] 1.010 1.005-1.03 0 [facility] Comment on above: Performed By: #### 2 [id number], [id number] #### [facility] [address] [place] [address] UA Spec Desc Clean Catch Normal [facility] Comment on above: Performed By: #### 2 [id number], [id number] #### [facility] [address] [place] [address] Urobilinogen Qn (U) 0.2 {Pamela'U}/dL Normal 0.0-1.0 [facility] Comment on above: Performed By: #### 2 6098469, [id number] #### [facility] [address] [place] [address] WBC Auto Ql (U) Negative Normal Negative [facility] Comment on above: Performed By: #### 2 0957861, [id number] #### [facility] [address] [place] [address] WBC LM.HPF (Urine sed) [#/Area] 0-5 Normal 0-5 [facility] Comment on above: Performed By: #### 2 8328113, [id number] #### [facility] [address] [place] [address] Auto Diffon 12-12-2017 Basophils Auto #/vol (Bld) 0.1 E3/mcL Normal 0.0-0.2 [facility] Comment on above: Order Comment: Order Added by Discern Expert. Performed By: #### 2 846839 ####KADEN [address]Eoay[address] [place] [address] Basophils/100 WBC Auto (Bld) 0.9 % Normal 0.0-2.0 [facility] Comment on above: Order Comment: Order Added by Discern Expert. Performed By: #### 2 982209 ####KADEN BairdBkeLfqr[address] [place] [address] Eos Absolute 0.0 E3/mcL Normal 0.0-0.7 [facility] Comment on above: Order Comment: Order Added by Discern Expert. Performed By: #### 2 306963 ####KADEN BairdDxmPrbo[address] [place] [address] Eosinophils/100 leukocytes 0.4 % Normal 0.0-11.0 [facility] Comment on above: Order Comment: Order Added by Discern Expert. Performed By: #### 2 053105 ####KADEN BairdNusQqqd[address] [place] [address] Lymphocytes 1.4 E3/mcL Normal 1.2-3.4 [facility] Comment on above: Order Comment: Order Added by Discern Expert. Performed By: #### 2 409818 ####KADEN [address] [place] [address] Lymphocytes/100 leukocytes 16.6 % Low 20.0-55.0 [facility] Comment on above: Order Comment: Order Added by Discern Expert. Performed By: #### 2 765454 ####KADEN [address] [place] [address] [place] Absolute 0.5 E3/mcL Normal 0.0-0.7 [facility] Comment on above: Order Comment: Order Added by Discern Expert. Performed By: #### 2 092570 ####KADEN [address] [place] [address] Monocytes/100 leukocytes 5.5 % Normal 0.0-10.0 [facility] Comment on above: Order Comment: Order Added by Discern Expert. Performed By: #### 2 055257 ####KADEN [address] [place] [address] Neutro Absolute 6.7 E3/mcL High 1.4-6.5 [facility] Comment on above: Order Comment: Order Added by Discern Expert. Performed By: #### 2 485173 ####KADEN [address] [place] [address] Neutro Auto 76.6 % High 37.0-75.0 [facility] Comment on above: Order Comment: Order Added by Discern Expert. Performed By: #### 2 012371 ####KADEN [address] [place] [address] CBC w/ Auto Diffon 8 Erythrocyte distribution width Auto Ratio (RBC) 15.0 % High 11.5-14.5 [facility] Comment on above: Performed By: #### 2 160172 ####KADEN [address] [place] [address] Erythrocytes (RBC) 4.94 E6/mcL Normal 3.90-5.40 [facility] Comment on above: Performed By: #### 2 193100 ####KADEN [address] [place] [address] Hematocrit (HCT) 40.0 % Normal 36.0-48.[address] [facility] Comment on above: Performed By: #### 2 705588 ####KADEN [address] [place] [address] Hemoglobin mass conc (Bld) 13.0 g/dL Normal 12.0-16.0 [facility] Comment on above: Performed By: #### 2 588015 ####KADEN [address] [place] [address] MCH 26.2 pg Low 27.0-31.0 [facility] Comment on above: Performed By: #### 2 986279 ####KADEN [address] [place] [address] MCHC mass conc (RBC) 32.4 g/dL Low 33.0-37.[address] [facility] Comment on above: Performed By: #### 2 312289 ####KADEN [address] [place] [address] MCV 81.0 fL Normal 78.0-100.0 [facility] Comment on above: Performed By: #### 2 989111 ####KADEN [address] [place] [address] Platelet mean volume (PMV) 7.5 fL Normal 7.4-11.0 [facility] Comment on above: Performed By: #### 2 762218 ####KADEN [address] [place] [address] Platelets 347 E3/mcL Normal 130-400 [facility] Comment on above: Performed By: #### 2 374382 ####KADEN B[address]WoqOdvr[address] [place] [address] WBC (Leukocytes) 8.7 E3/mcL Normal 3.6-11.[address] [facility] Comment on above: Performed By: #### 2 608431 ####KADEN [address] [place] [address] CMPon 12-12-2017 Alanine aminotransferase (ALT) 14 Int._Unit/L Normal 10-40 [facility] Comment on above: Performed By: #### 2 314168 ####KADEN BairdQbrQqcq[address] [place] [address] Albumin 3.8 g/dL Normal 3.2-5.0 [facility] Comment on above: Performed By: #### 2 348530 ####KADEN [address] [place] [address] Albumin/Globulin Ratio 1.0 {ratio} Low 1.1-1.9 [facility] Comment on above: Performed By: #### 2 385219 ####KADEN [address] [place] [address] Alk Phos 75 Int._Unit/L Normal 42-121 [facility] Comment on above: Performed By: #### 2 357409 ####KADEN [address] [place] [address] Aspartate aminotransferase (AST) 18 Int._Unit/L Normal 10-42 [facility] Comment on above: Performed By: #### 2 652538 ####KADEN [address] [place] [address] Bili Total 1.0 mg/dL Normal 0.2-1.0 [facility] Comment on above: Performed By: #### 2 572618 ####KADEN [address] [place] [address] BUN/Creatinine Ratio 12.5 ratio Normal 5.4-30.[address] [facility] Comment on above: Performed By: #### 2 817644 ####KADEN [address] [place] [address] Creatinine 0.8 mg/dL Normal 0.6-1.3 [facility] Comment on above: Performed By: #### 2 666542 ####KADEN [address] [place] [address] Globulin 3.8 g/dL Normal 2.0-4.0 [facility] Comment on above: Performed By: #### 2 332303 ####KADEN [address]YsnNmty[address] [place] [address] Protein 7.6 g/dL Normal 6.4-8.3 [facility] Comment on above: Performed By: #### 2 677596 ####KADEN [address]RykYkec[address] [place] [address] Urea nitrogen 10 mg/dL Normal 7-18 [facility] Comment on above: Performed By: #### 2 089148 ####KADEN [address] [place] [address] Calcium 9.3 mg/dL Normal 8.4-10.2 [facility] Comment on above: Performed By: #### 2 597111 ####KADEN [address] [place] [address] Chloride 105 mmol/L Normal 98-107 [facility] Comment on above: Performed By: #### 2 055039 ####KADEN [address] [place] [address] CO2 25.1 mmol/L Normal 24.0-30.0 [facility] Comment on above: Performed By: #### 2 199953 ####KADEN [address] [place] [address] Glucose mass conc 101 mg/dL High 70-99 [facility] Comment on above: Performed By: #### 2 262729 ####KADEN [address] [place] [address] Potassium molar conc 3.4 mmol/L Low 3.5-5.[address] [facility] Comment on above: Performed By: #### 2 607683 ####KADEN [address] [place] [address] Sodium 140 mmol/L Normal 136-145 [facility] Comment on above: Performed By: #### 2 027105 ####KADEN [address] [place] [address] Lipase Levelon 12-12-2017 Lipase Lvl 30 U/L Normal 8-57 [facility] Comment on above: Performed By: #### 2 447801 ####KADEN [address] [place] [address] UA Completeon 12-12-2017 UA Blood 3+ Normal Negative [facility] Comment on above: Performed By: #### 2 820117 ####KADEN [address]rtAlan[address] [place] [address] UA Bacteria Trace Abnormal None [facility] Comment on above: Performed By: #### 2 645475 ####KADEN [address]idTiwIake[address] [place] [address] UA Clarity SltCloudy Abnormal Clear [facility] Comment on above: Performed By: #### 2 889118 ####KADEN [address]QiaNujc[address] [place] [address] UA Hyal Cast 0-2 Normal 0-2 [facility] Comment on above: Performed By: #### 2 661741 ####KADEN [address]FjnDrah[address] [place] [address] UA Leuk Est 3+ Abnormal Negative [facility] Comment on above: Performed By: #### 2 528343 ####KADEN [address]RgbHpkf[address] [place] [address] UA Mucous Many Abnormal Trace [facility] Comment on above: Performed By: #### 2 761592 ####KADEN [address]ujVrtp[address] [place] [address] UA Nitrite Negative Normal Negative [facility] Comment on above: Performed By: #### 2 844606 ####KADEN [address]airdIlsMgnm[address] [place] [address] UA pH 5.0 Normal 4.6-8.0 [facility] Comment on above: Performed By: #### 2 195917 ####KADEN [address]WnyWygl[address] [place] [address] UA Protein 1+ Abnormal Negative [facility] Comment on above: Performed By: #### 2 770133 ####KADEN [address]ZbjOtpa[address] [place] [address] UA Spec Grav 1.026 Normal 1.003-1.[address] [facility] Comment on above: Performed By: #### 2 052830 ####KADEN [address]PynZgne[address] [place] [address] UA Squam Epithelial 0-5 Normal 0-5 [facility] Comment on above: Performed By: #### 2 526347 ####KADEN [address]guTusn[address] [place] [address] UA Urobilinogen 2.0 mg/dL Abnormal [facility] Comment on above: Performed By: #### 2 642221 ####KADEN [address] [place] [address] UA WBC >50 Abnormal 0-5 [facility] Comment on above: Performed By: #### 2 890651 ####KADEN [address] [place] [address] Urine, color Yellow Normal Yellow [facility] Comment on above: Performed By: #### 2 142971 ####KADEN [address] [place] [address] Urine, erythrocytes 20-50 Abnormal 0-3 [facility] Comment on above: Performed By: #### 2 353567 ####KADEN [address] [place] [address] Urine, glucose Negative Normal Negative [facility] Comment on above: Performed By: #### 2 943564 ####KADEN [address] [place] [address] Urine, ketones presence Trace Normal [facility] Comment on above: Performed By: #### 2 310463 ####KADEN [address] [place] [address] Urine, urobilinogen Negative Normal Negative [facility] Comment on above: Performed By: #### 2 435540 ####KADEN [address] [place] [address] eGFRon 12-12-2017 eGFR AA >[address] [facility] Comment on above: Order Comment: Order Added by Discern Expert. Performed By: #### 2 930397 ####KADEN [address] [place] [address] eGFR (non-black) mL/min/{1.73_m2} Normal [facility] Comment on above: Order Comment: Order Added by Discern Expert. Performed By: #### 2 330193 ####KADEN [address] [place] [address] HISTORY PHYSICALon 8 HISTORY PHYSICAL HNO ID: [id number] thor: Clara Baker WolfeService: Maternal MedicineAuthor Type: PhysicianType: HANDPFiled: 12/02/2017 9:04 AMNote Text:[facility]ARD [facility] DOCUMENTDISCHARGE SUMMARYPatient Name: Zuleika [...] tabletFuture Appointments:Follow up in 4 weeks with provider.DO Debo Vanegas [facility] PROGRESSon 12-02-2017 PROGRESS HNO ID: [id number] thor: Marie Lema (Res) LendeService: ObstetricsAuthor Type: [...] with more than 50% of the total deei-zz-ysaxibvc of the visit in counseling / coordination [...] decreasing.Ambulating without difficulty.OBJECTIVE:PHYSI GEN EXAM:Heart: RR, S1, V5Qitaq: clear to auscultationAbdomen: Soft Bowel sounds present Fundus firm below umbilicusNon-distendedLAST VITALS:Pulse BP Resp O2 Sat Temp Pain 93 139/87 18 98 % (98) 36.8 ?C (98.2 ?F) 0/10HT/WT/BMI:Height Weight BMI 167.6 cm (5' 6 ) 88.5 kg (195 lb) 31.47LABSDiagnostic tests reviewed for today's visit: Most recent labs and imagingresults.SIGNATURE: Marie Hassan DO PATIENT NAME: Zuleika BecerrilnDATE: December 02, 2017 : 5:45 AM Normal [facility] SOCIAL WORKon 12-02-2017 SOCIAL WORK HNO ID: [id number] thor: Meredith Ramsay (Sw)vice: Social WorkAuthor Type: Social WorkerType: Social WorkFiled: 12/02/2017 12:25 PMNote Text:SOCIAL WORK CONSULT NOTESERVICE DATE: 12/02/2017SERVICE TIME: 1015Referred by: Jose for visit:Maternal/Infant - adjustment to conditionLiving Arrangement: HomeLives With: PartnerFinancial Resources: DisabledPrimary Contact:Extended Emergency Contact Information Coleen VALDEZ Emergency Contact: No,ContactRelation: OtherSupportive: YesOther Important Patient Contacts: FOB family (Alma and Salomon Munoz)Health Insurance: Medicaid[place] Nishant [place] is a [...] from hospital. (FOBparents are Anamika Munoz of [address], [facility]).Per pt and FOB, all needed baby supplies and equipment are at the [facility] and a nursery has been set up.Per pt, name of baby girl is Martha Branch.Pt states she is on SSI and WIC.Pt shares that she is in ongoing counseling at [facility] in [place] and has appointments 2 x per month.Discussed with pt and FOB signs and sx of depression; safe babysleep and discussed ways to deal with crying infant. Pt again states sheis going to rely on her support system.No additional issues identified at this time. Encouraged pt and FOB toutilize services through [facility]. Providedcontact information.Outcome/Recomm endations:Assistance through [facility] spent (minutes): 60SIGNATURE: CARLA Goncalves PATIENT NAME: Zuleika Hernandez: December 02, 2017 : 11:10 AM PAGER/CONTACT#: [facility] ANES INTRAOPon 12-01-2017 ANES INTRAOP HNO ID: [id number] thor: Terrance Leblanc) Richyervice: AnesthesiologyAuthor Type: Nurse AnesthetistType: Anesthesia IntraOpFiled: 12/01/2017 9:41 AMNote Text:ANALGESIA PROGRESS RECORDCATHETER REMOVAL/END OF CASESERVICE DATE: 12/01/2017REMOVAL DATE AND TIME: 11/30/2017, 1953DELIVERY DATE AND TIME: 11/30/2017 at 5:49 PMCATHETER REMOVAL:Catheter Removal: See MASHA Nursing noteSIGNATURE: Terrance Contreras APRN.CRNA PATIENT NAME: Zuleika LambATE: December 01, 2017 : 9:40 AM PAGER/CONTACT #: [facility] ANES Keke 12-01-2017 ANES POST HNO ID: [id number] thor: Terrance Lockhartervice: AnesthesiologyAuthor Type: Nurse AnesthetistType: Anesthesia PostOpFiled: 12/01/2017 9:43 AMNote Text:POST ANESTHESIA EVALUATION NOTESERVICE DATE: 12/01/2017SERVICE TIME: 9:42 AMDOB: 1990Vitals: 12/01/1799Temp: 36.7 ?C (98.1 ?F) 36.8 ?C (98.2 ?F) 36.4 ?C (97.5 ?F) 36.4 ?C (97.5?F) 12/01/1799P: 119/55 102/61 107/57 116/72 12/01/1799ulse: 90 79 65 78 12/01/1799Resp: 20 16 20 16 1 12/01/1819SpO2: 100% 98% 98% 98%Validated Vital Signs: YesPOST [...] 01, 2017 : 9:42 AM PAGER/CONTACT #: [facility] PROGRESSon 12-01-2017 PROGRESS HNO ID: [id number] thor: Marie Lema (Res) LendeService: ObstetricsAuthor Type: [...] decreasing.Ambulating without difficulty.OBJECTIVE:PHYSI GEN EXAM:Heart: RR, S1, M3Iooll: clear to auscultationAbdomen: Soft Bowel sounds present [...] December 01, 2017 : 6:40 AM Normal [facility] ABO/Rh Confirmationon 2017 ABO group Nom (Bld) A Normal [facility] Comment on above: Performed By: #### A JESSIE #### [place] [address] RH Type Positive Normal [facility] Comment on above: Performed By: #### A JESSIE #### [place] [address] ANES PREOPon 11-30-2017 ANES PREOP HNO ID: [id number] thor: Aaron (Highway Painter Helper) EarleyService: AnesthesiologyAuthor Type: Nurse AnesthetistType: Anesthesia PreOpFiled: [...] of Sleep Apnea: DeniesHematocritDate Value Ref Range Feodyy4511/30/2017 32.3 (L) 34.1 - 44.9 % Final Platelet CountDate Value Ref Range Yrgwvk9211/30/2017 193 182 - 369 thou/cmm Final Vitals: 821 [id number] 139 143BP: 142/75 138/81Pulse: 75 81Resp:Temp: 36.6 [...] as needed. Disp: Rfl:Inpatient medications [facility].I have interviewed and examined the patient. I have reviewed the medicalrecord , pertinent consults and/or the pre-anesthesia evaluation,pertinent labs, and test results.Significant changes in the patient's condition since the History andPhysical, not otherwise documented in primary service progress notes: NoThis contains updated information obtained within 48 hours ofSurgery/Procedure.SIGNAT URE: Hema Cuellar APRN.PLANT ASSIGNER PATIENT NAME: Zuleika LambATE: November 30, 2017 : 12:13 PM : 1990 Normal [facility] Auto Diffon 11-30-2017 Basophils Auto #/vol (Bld) 0.1 E3/mcL Normal 0.0-0.2 [facility] Comment on above: Order Comment: Order Added by Discern Expert. Performed By: #### 2 595411 ####KADEN [address]hiWaug[address] [place] [address] Basophils/100 WBC Auto (Bld) 0.9 % Normal 0.0-2.0 [facility] Comment on above: Order Comment: Order Added by Discern Expert. Performed By: #### 2 730854 ####KADENMorelia BairdCbjFxwi[address] [place] [address] Eos Absolute 0.1 E3/mcL Normal 0.0-0.7 [facility] Comment on above: Order Comment: Order Added by Discern Expert. Performed By: #### 2 600789 ####KADENMorelia BairdVmgDzuf[address]46 [place] [address] Eosinophils/100 leukocytes 1.0 % Normal 0.0-11.0 [facility] Comment on above: Order Comment: Order Added by Discern Expert. Performed By: #### 2 682211 ####KADENMorelia BairdXuaPijf[address] [place] [address] Lymphocytes 2.0 E3/mcL Normal 1.2-3.4 [facility] Comment on above: Order Comment: Order Added by Discern Expert. Performed By: #### 2 361808 ####KADENMorelia BairdBrqGbxp0258 [place] [address] Lymphocytes/100 leukocytes 22.1 % Normal 20.0-55.0 [facility] Comment on above: Order Comment: Order Added by Discern Expert. Performed By: #### 2 535348 ####KADEN QfeCapy[address] [place] [address] [place] Absolute 0.7 E3/mcL Normal 0.0-0.7 [facility] Comment on above: Order Comment: Order Added by Discern Expert. Performed By: #### 2 982801 ####KADENMorelia BairdJadRleq26[address] [place] [address] Monocytes/100 leukocytes 7.5 % Normal 0.0-10.0 [facility] Comment on above: Order Comment: Order Added by Discern Expert. Performed By: #### 2 353724 ####KADEN [address] [place] [address] Neutro Absolute 6.1 E3/mcL Normal 1.4-6.5 [facility] Comment on above: Order Comment: Order Added by Discern Expert. Performed By: #### 2 138261 ####KADEN [address] [place] [address] Neutro Auto 68.5 % Normal 37.0-75.0 [facility] Comment on above: Order Comment: Order Added by Discern Expert. Performed By: #### 2 829131 ####KADEN [address] [place] [address] CBC w/ Auto Diffon 8 Erythrocyte distribution width Auto Ratio (RBC) 14.3 % Normal 11.5-14.5 [facility] Comment on above: Performed By: #### 2 [id number] ####KADEN [address] [place] [id number] Erythrocytes (RBC) 4.34 E6/mcL Normal 3.90-5.40 [facility] Comment on above: Performed By: #### 2 [id number] ####KADEN [address] [place] [id number] Hematocrit (HCT) 35.1 % Low 36.0-48.[address] [facility] Comment on above: Performed By: #### 2 [id number] ####KADEN [address] [place] [address] Hemoglobin mass conc (Bld) 11.6 g/dL Low 12.0-16.0 [facility] Comment on above: Performed By: #### 2 [id number] ####KADEN [address] [place] [address] MCH 26.6 pg Low 27.0-31.0 [facility] Comment on above: Performed By: #### 2 [id number] ####KADEN [address] [place] [id number] MCHC mass conc (RBC) 32.9 g/dL Low 33.0-37.[address] [facility] Comment on above: Performed By: #### 2 [id number] ####KADEN [address] [place] [address] MCV 80.9 fL Normal 78.0-100.0 [facility] Comment on above: Performed By: #### 2 [id number] ####KADEN [address] [place] [address] Platelet mean volume (PMV) 7.6 fL Normal 7.4-11.0 [facility] Comment on above: Performed By: #### 2 [id number] ####KADEN [address] [place] [address] Platelets 217 E3/mcL Normal 130-400 [facility] Comment on above: Performed By: #### 2 [id number] ####KADEN [address] [place] [address] WBC (Leukocytes) 8.8 E3/mcL Normal 3.6-11.[address] [facility] Comment on above: Performed By: #### 2 [id number] ####KADEN [address] [place] [address] CONSULTon 11-30-2017 CONSULT HNO ID: [id number] thor: Marie Lema (Res) LendeService: ObstetricsAuthor Type: [...] T0 L0 SAB1 TAB0 Ectopic0 Multiple0 Live Tgfajg7Dvyd of Baby 1: Not recorded Date: 2014 [...] pupils equal, no thyromegalyLungs: clearHeart: RR, S1, T8Lvatdfr: soft, nontender, no massesUterus: soft, NTExtremities: 1+ edemaDTRs: 2+FHT: bpmSt Spec Exam: (not done)CERVICAL EXAM:Dilation: 1 (11/30/17 0648 : Marie Lema (Res) Sonya) cmStation: -2 (11/30/1748 : Marie Lema (Res) Sonya)Effacement: 60 (11/30/1748 : Marie Lema (Res) Sonya) %Position:Presentation: Pelvimetry: [...] Epi prn4. [place] [address]. anomalies- prominent cisterna magna, bilateral periventrcularnodular heterotopia, [...] EF 55%.10. H/o maternal clubfoot-s/p repair as oujvcb13. H/o tobacco abuseSigned out to [facility] for deliveryDr. Amado reviewed with Dr. MaldonadoSIGNATURE: Marie Hassan DO PATIENT NAME: Zuleika LambATE: November 30, 2017 : 6:49 AM PAGER/CONTACT #: [phone] Normal [facility] HISTORY PHYSICALon 8 HISTORY PHYSICAL HNO ID: [id number] thor: Marie Lema (Joaquín) Tristanrvice: ObstetricsAuthor Type: ResidentType: HANDPFiled: 11/30/2017 7:00 AMNote [...] T0 L0 SAB1 TAB0 Ectopic0 Multiple0 Live Enbbop4Znmo of Baby 1: Not recorded Date: 2014 [...] 18 100 % 36.5 ?C (97.7 ?F) 5/10HT/WT/BMI:Height Weight BMI 167.6 cm (5' 6 ) 88.5 kg (195 lb) 31.47PHYSICAL EXAM:General: WD, WNHEENT: NC/AT, sclera white, pupils equal, no thyromegalyLungs: clearHeart: RR, S1, Y0Ullrviv: soft, nontender, no massesUterus: soft, NTExtremities: 1+ edemaDTRs: 2+FHT: bpmSt Spec Exam: (not done)CERVICAL EXAM:Dilation: 1 (11/30/1748 : Marie Lema (Res) Lende) cmStation: -2 (11/30/1748 : Marie Lema (Res) Lende)Effacement: 60 (11/30/1748 : Marie Lema (Res) Lende) %Position:Presentation: Pelvimetry: Pelvimetry clinically assessed as adequateFETAL MONITORING/ASSESSMENT:Base line: 140sVariability: ModerateAccelerations: Acelerations presentDecelerations: AbsentContractions: Rare contractionsFrequency: rareNST Interpretation: IFHR Category:NST Comments:EFW: 6.5 based on clinical assessment.Ultrasound:Posi tion: VertexPlacenta: AnteriorCardiac Motion: PresentAmniotic Fluid: No 2X2 pocket notedDiagnostic tests reviewed for today's visit:Assessment/Plan27 year old EGA:39w0d. Is admitted for augmentation for PROM1. GBS-2. Pit per protocol3. Epi prn4. [place]5. [place] [address]. anomalies- prominent cisterna magna, bilateral periventrcularnodular heterotopia, [...] EF 55%.10. H/o maternal clubfoot-s/p repair as lisinv57. H/o tobacco abuseSigned out to [facility] for deliveryD/w Dr. AmadoSIGNATURE: Marie Hassan DO PATIENT NAME: Zuleika BecerrilnDATE: November 30, 2017 : 6:49 AM PAGER/CONTACT #: [phone] Normal [facility] Hemogramon 11-30-2017 Erythrocyte distribution width Ratio (RBC) 13.6 % Normal 11.7-14.4 [facility] Comment on above: Performed By: #### C BC1 #### [address] [address] Hematocrit Volume Fraction (Bld) 32.3 % Low 34.1-44.9 [facility] Comment on above: Performed By: #### C BC1 #### [address] [address] Hemoglobin mass conc (Bld) 10.4 g/dL Low 11.2-15.7 [facility] Comment on above: Performed By: #### C BC1 #### [facility] [address] [place] [address] MCH Entitic mass (RBC) 26.4 pg Normal 25.6-32.2 [facility] Comment on above: Performed By: #### C BC1 #### [facility] [address] [place] [address] MCHC mass conc (RBC) 32.2 % Normal 31.6-34.8 [facility] Comment on above: Performed By: #### C BC1 #### [facility] [address] [place] [address] MCV Entitic volume (RBC) 82.0 fL Normal 79.4-94.8 [facility] Comment on above: Performed By: #### C BC1 #### [facility] [address] [place] [address] Platelet mean volume Entitic volume (Bld) 9.9 fL Normal 9.4-12.3 [facility] Comment on above: Performed By: #### C BC1 #### [facility] [address] [place] [address] Platelets #/vol (Bld) 193 thou/cmm Normal 182-369 [facility] Comment on above: Performed By: #### C BC1 #### [place] [address] RBC #/vol (Bld) 3.94 mil/cmm Normal 3.93-5.22 [facility] Comment on above: Performed By: #### C BC1 #### [facility] [address] [place] [address] RDW SD 40.6 fl Normal 36.4-46.3 [facility] Comment on above: Performed By: #### C BC1 #### [place] [address] WBC #/vol (Bld) 9.85 thou/cmm Normal 3.98-10.04 [facility] Comment on above: Performed By: #### C BC1 #### [facility] [address] [place] [address] LD NOTEon 11-30-2017 LD NOTE HNO ID: [id number] thor: Marie Lema (Res) JabiereService: ObstetricsAuthor Type: ResidentType: LANDD Delivery NoteFiled: 11/30/2017 6:19 PMNote Text: -------Attestation signed by Serenity Maldonado MD at 12/01/2017 6:04 PMI saw and evaluated the patient. I reviewed the resident's note and agree,except that patient seen by [facility] (patient has FAS, fetus with multipleanomlaies) service, consult placed to [facility] for management of labor AND delivery.Essential primip presented at 39w with PROM, had Pugh balloon AND Pitocin foraugmentaion. Late in labor noted tachycardia that improved with IVFB ANDTylenol (mother rico had elevated temp but felt warm). [facility] for evaluation (was allowed tohave delivery to abdomen AND 30 sec delay for cord clamping). Pushed well AND hadSVD of a viable female infant (APGARS 8,9, weight of 3200g/7#1oz) over intactperineum. Uterus slightly boggy after delivery, responded to massage AND Pitocininfusion, EBL ~500cc.Serenity Maldonado MD ----OBSTETRICSDELIVERY SUMMARY - VAGINAL DELIVERYGestational Age at Delivery: 78m7kWvmrgts Date: 11/30/2017Service Time: 1800Keegan, Bg Zuleika Dillard [[id number]]Labor EventsRupture Date: 11/30/17Rupture Time: 224Rupture Type: PROMFluid [...] valvular insufficiency with EF this of 55%. Shealso has a history of former tobacco abuse.SIGNATURE: Marie Hassan DO PATIENT NAME: Zuleika Dillard KeeganDATE: November 30, 2017 : 6:15 PM Normal [facility] NURSING PROGon 11-30-2017 NURSING PROG HNO ID: [id number] thor: Marguerite (Rn) Deion, RNService: (none)Author Type: Registered NurseType: Nursing Progress NoteFiled: 11/30/2017 7:06 PMNote Text: INTRODUCED SELF TO PATIENT AND SUPPORT PERSONS. PLAN OF CARE DISCUSSED.ASSESSMENT PERFORMED. PATIENT DENIES COMPLAINTS. Normal [facility] NURSING PROG HNO ID: [id number] thor: Darcie (Rn) ANEUDY Landeroservice: NursingAuthor Type: Registered NurseType: Nursing Progress NoteFiled: 11/30/2017 10:03 AMNote Text:Patient up to shower for comfort. Boyfriend at side. On telemetrymonitors. RN remains in room. FHR difficult to maintain continuoustracing Normal [facility] NURSING PROG HNO ID: [id number] Author: Norah (Rn) KARRI Eastman Service: Nursing Author Type: Registered Nurse Type: Nursing Progress Note Filed: 11/30/2017 7:18 AM Note Text: Report given to Darcie DURAN and care transferred at this time. Normal [facility] PROCEDUREon 11-30-2017 PROCEDURE HNO ID: [id number] thor: Aaron (Highway Painter Helper) EarleyService: AnesthesiologyAuthor Type: Nurse AnesthetistType: ProceduresFiled: 11/30/2017 12:30 [...] Catheter in Epidural Space: 5 cmInterspace: approximately L2-B7Ynyqxg of Attempts: 1Wet Tap Complication: NoDural Puncture [...] nurses' documentation for additional vitals.SIGNATURE: Hema Cuellar APRN.PLANT ASSIGNER PATIENT NAME: Zuleika LambATE: November 30, 2017 : 12:27 PM PAGER/CONTACT #: [facility] PROGRESSon 11-30-2017 PROGRESS HNO ID: [id number] thor: Marie Lema (Res) LendeService: ObstetricsAuthor Type: ResidentType: Progress NotesFiled: 11/30/2017 5:04 PMNote Text:UpdatePatient is pushing in the OR. Cat I FHRT with baseline around 160s. updated and in house.Franki Neri 2017 5:04 PM [facility] PROGRESS HNO ID: [id number] Author: Darcie (Rn) KARRI Landeros Service: Nursing Author Type: Registered Nurse Type: Progress Notes Filed: 11/30/2017 3:29 PM Note Text: Patient feeling pressure, cervical exam 9.5 cm. NICU notified. Patient feels warm, but temp 36.9. [facility] PROGRESS HNO ID: [id number] thor: Marie Lema (Res) LendeService: ObstetricsAuthor Type: ResidentType: Progress NotesFiled: 11/30/2017 1:39 PMNote Text:OBSTETRICSINTRAPARTUM PROGRESS NOTESERVICE DATE: November 30, 2017SERVICE TIME: 1:35 PMSubjectivePatient with no complaints.ObjectiveLAST VITALS:Pulse BP Resp O2 Sat Temp Pain 78 122/63 18 100 % 36.7 ?C (98.1 ?F) 01/24PHYSICAL EXAM:CERVICAL EXAM:Last Exam Notes: Dilation: 5 (11/30/17 1309 : Yolanda (Res) Barbosa)Effacement (%): 80 (11/30/17 1309 : Yolanda (Res) Barbosa)Station: -2 (11/30/17 1309 : Yolanda (Res) Barbosa)Presentation: (not recorded)MEMBRANES:Status: Membrane Status: Premature (11/30/17 0853 : Darcie (Rn) TigreRN)Rupture Date: 11/30/17 (11/30/17 0853 : Darcie (Rn) Tigre RN)Rupture Time: 0225 (11/30/17 0853 : Darcie (Rn) Tigre RN)Amniotic Fluid Color: Clear (11/30/17 0853 : Darcie (Rn) Tigre RN)Additional Findings: NoneFETAL MONITORINGFHT: 150s Moderate/acelerations present/early decelerations/isolated latedecelerationsToco: 2-3 minutesCategory: IILABSDiagnostic tests reviewed for today's visit: Most recent labs and imagingresults.Assessment/ Plan27 year old EGA:39w0d. Admitted for augmentation for PROM1. GBS-2. Pit per protocol3. Epi in- pt comfortable4. s/p FB5. [place] [address]. anomalies- prominent cisterna magna, bilateral periventrcularnodular heterotopia, [...] EF 55%.10. H/o maternal clubfoot-s/p repair as nrroxr76. H/o tobacco abuse12. Cat II- Isolate late decelerations. Moderate variability. Continuingto make cervical change. Not on Cat II protocol.SIGNATURE: Marie Hassan DO PATIENT NAME: Zuleika LambATE: November 30, 2017 : 1:35 PM PAGER/CONTACT #: [phone] [facility] PROGRESS HNO ID: [id number] thor: Yolanda (Res) SnyderService: ObstetricsAuthor Type: ResidentType: Progress NotesFiled: 11/30/2017 1:14 [...] Date: 11/30/17 (11/30/17 0853 : Darcie (Karri) Tigre RN)Rupture Time: 0225 (11/30/17 0853 : Darcie (Karri) Tigre RN)Amniotic Fluid Color: Clear (11/30/17 0853 : Darcie (Rn) Tigre RN)Additional Findings: NoneFETAL MONITORINGFHT: 145/mod/rare accel/+early decelToco: 1-3 minutesCategory: ILABSDiagnostic tests reviewed for today's visit: No new labsAssessment/Plan27 year old EGA:39w0d. Admitted for AOL PROM1. GBS-2. Pit per protocol3. Epi in- pt comfortable4. s/p FB5[place] [address]. anomalies- prominent cisterna magna, bilateral periventrcularnodular heterotopia, [...] EF 55%.10. H/o maternal clubfoot-s/p repair as eetwnl76. H/o tobacco abuseSIGNATURE: Yolanda Barbosa DO PATIENT NAME: Zuleika LambATE: November 30, 2017 : 1:11 PM PAGER/CONTACT #: [phone] Normal [facility] PROGRESS HNO ID: [id number] thor: Yolanda Almonteervice: ObstetricsAuthor Type: ResidentType: Progress [...] 0853 : Darcie (Rn) Tigre RN)Rupture Time: 0225 (11/30/17 0853 : Darcie (Rn) Tigre RN)Amniotic Fluid Color: Clear (11/30/17 0853 : Darcie (Rn) Tigre, RN)Additional Findings: NoneFETAL MONITORINGFHT: 145/mod/+accels/neg decelsToco: 2-4 minutesCategory: ILABSDiagnostic tests reviewed for today's visit: No new labsAssessment/Plan27 year old EGA:39w0d. Admitted for augmentation of labor forPROM?1. GBS-2. Pit per protocol3[place] [address]. [place] [address]. anomalies- prominent cisterna magna, bilateral periventrcularnodular heterotopia, [...] maternal clubfoot-s/p repair as . H/o tobacco abuseSIGNATURE: Yolanda Barbosa DO PATIENT NAME: Zuleika LambATE: November 30, 2017 : 11:05 AM PAGER/CONTACT #: [phone] [facility] PROGRESS HNO ID: [id number] Author: Darice Washington) KARRI Landeros Service: Nursing Author Type: Registered Nurse Type: Progress Notes Filed: 11/30/2017 10:35 AM Note Text: Unable to find labwork for chart. [facility] PROGRESS HNO ID: [id number] thor: Marie Lema (Res) JabiereService: ObstetricsAuthor Type: ResidentType: Progress NotesFiled: 11/30/2017 10:33 AMNote Text:OBSTETRICSINTRAPARTUM PROGRESS NOTESERVICE DATE: November 30, 2017SERVICE TIME: 10:31 AMSubjectivePatient with no complaints.ObjectiveLAST VITALS:Pulse BP Resp O2 Sat Temp Pain 75 142/75 18 100 % 36.6 ?C (97.9 ?F) 01/24PHYSICAL EXAM:CERVICAL EXAM:Last Exam Notes: Dilation: 1 (11/30/17 0648 : Marie Lema (Res) Lende)Effacement (%): 60 (11/30/17 0648 : Marie Lema (Res) Lende)Station: -2 (11/30/17 0648 : Marie Lema (Res) Lende)Presentation: (not recorded)MEMBRANES:Status: Membrane Status: Premature (11/30/17 0853 : Darcie MagañaRn) KARRI Landeros)Rupture Date: 11/30/17 (11/30/17 0853 : Darcie (Rn) Tigre, RN)Rupture Time: 0225 (11/30/17 0853 : Darcie (Rn) Tigre, RN)Amniotic Fluid Color: Clear (11/30/17 0853 : Darcie (Rn) Tigre, RN)Additional Findings: NoneFETAL MONITORINGFHT: 135s Moderate/acelerations present/decelerations absentToco: 2-4 minutesCategory: ILABSDiagnostic tests reviewed for today's visit: Most recent labs and imagingresults.Assessment/ Plan27 year old EGA:39w0d. Admitted for augmentation for PROM1. GBS-2. Pit per protocol3[place] [address]. [place] [address]. anomalies- prominent cisterna magna, bilateral periventrcularnodular heterotopia, [...] EF 55%.10. H/o maternal clubfoot-s/p repair as afwomw49. H/o tobacco abuse?SIGNATURE: Marie Hassan DO PATIENT NAME: Zuleika LambATE: November 30, 2017 : 10:31 AM PAGER/CONTACT #: [phone] [facility] PROGRESS HNO ID: [id number] thor: Darcie (Rn) Tigre, RNService: NursingAuthor Type: Registered NurseType: Progress NotesFiled: 11/30/2017 10:13 AMNote Text:Patient remains in shower. RN and boyfriend at side. EFM on telemetryand adjusted while patient in shower. Difficult to keep baby on. [facility] PROGRESS HNO ID: [id number] thor: Yolanda (Joaquín) GabrielaerService: ObstetricsAuthor Type: ResidentType: Progress NotesFiled: 11/30/2017 7:35 AMNote Text:In to place FB. Pt tolerated procedure well. Continues to leak clearfluid. Pt uncomfortable with contractions.Cat I FHT, reactive with accelsToco: 2-5 minsHeather Romina, PGY-1Obstetrics and GynecologyPager [phone]/7:34 AM Normal [facility] Type and Screenon 11-30-2017 ABO group Nom (Bld) A Normal [facility] Comment on above: Performed By: #### T &S #### [place] [address] Comment See Below Normal [facility] Comment on above: Result Comment: Scre en &/or Xmatch expires in 3 days at 12 midnight. Redraw patient at that time. Performed By: #### T &S #### [place] [address] RH Type Positive Normal [facility] Comment on above: Performed By: #### T &S #### [place] [address] Progress Noteon 11-28-2017 Special Systems Technician Authentication Interface Message Text Routine VisitSubjective: Zuleika Villalta is being seen today for her obstetrical visit. She is at 47i2gymtyxwwys. Patient reports no complaints. Movement: normal. She [...] Serial growth ultrasounds every 4 weeks.DELIVERY PLANHospital: [facility] CenterInduction at 39 weeks; CYTOTEC IOL 618-18 at 5 pm at [facility]. Pre-Procedure formdone (CG)GBS culture: neg 11/07/17Contraception: [...] IVC/SVC S/P echo in [facility] POC reviewedShe would like her follow up and contraception with Dr. Ivan.The total patient time of the visit was 15 minutes, of which greater than 50% ofthe time was spent counseling and coordinating care. Normal [facility] Progress Noteon 11-22-2017 Special Systems Technician Authentication Interface Message Text [facility] plan of care faxed to [facility] in event pt would arrive for urgent management. Normal [facility] Progress Noteon 11-21-2017 Special Systems Technician Authentication Interface Message Text Routine VisitSubjective: Zuleika Villalta is being seen today for her obstetrical visit. She is at 33i5pojxdhhxrh. Patient reports that she went to [facility] last night due toconcerns for labor. [...] Serial growth ultrasounds every 4 weeks.DELIVERY PLANHospital: [facility] CenterInduction at 39 weeks; CYTOTEC IOL 12-02-18 at 5 pm at [facility]. Pre-Procedure formdone (CG)GBS culture: neg 11/07/17Contraception: [...] scheduled for IOL on12/02/17.Oksana amado MD Normal [facility] Progress Noteon 11-12-2017 Special Systems Technician Authentication Interface Message Text Call from [facility] that pt presented there in labor. [facility] plan of care and ACOGs faxed by Toan Chen. Provided after hours MFM number provided. Normal [facility] Group B Strep Cultureon 10-16 Group B Strep Culture Group B Strep Cult ure: No Group B Streptococci isolated. Source: VAG Collected: 11/07/17 09:00 Site: Vaginal/Rectal Received : 11/07/17 22:01Group B Strep Culture FINAL 11/10/17 08:34 No Group B Streptococci isolated. Normal [facility] Comment on above: Performed By: #### G [facility] ####[address] [phone] Progress Noteon 11-07-2017 Special Systems Technician Authentication Interface Message Text Routine VisitSubjective: Zuleika Villalta is being seen today for her obstetrical visit. She is at 95f5zhhnbclutk. Patient reports occasional nausea. No emesis. She [...] Serial growth ultrasounds every 4 weeks.DELIVERY PLANHospital: [facility] CenterInduction at 39 weeksGBS culture: collected and sent [...] OB visit and BPP.Oksana Amado MD Normal [facility] Progress Noteon 10-24-2017 Special Systems Technician Authentication Interface Message Text Routine VisitSubjective: Zuleika [...] Serial growth ultrasounds every 4 weeks.DELIVERY PLANHospital: [facility] CenterInduction at 39 weeksGBS culture:Contraception: Considering LARC w/ [...] counseling and coordinating care.Marco Antonio Antonio, Normal [facility] Progress Noteon 10-15-2017 Special Systems Technician Authentication Interface Message Text Ped selection made. Updated prenatals Normal [facility] Progress Noteon 10-08-2017 Special Systems Technician Authentication Interface Message Text Thank you for [...] size. There was a patent foramen ovale, tvemfrjea-jj-bdwi shunt.Tricuspid valve:Normal tricuspid valve. There was normal [...] fetuses and in fetuses with CHD and sgrbavxsbcrlo08m23, the ratio being below 0.3 )Impression and recommendations.1) Abnormal 3-vessel view, ascending aorta was moderately dilated. 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 thymic thoracic ratio (TT-ratio)=0.1 ( TT-ratio 0.44 in normal fetuses and in fetuses with CHD and patpnzlymjzxk62j80, the ratio being below 0.3 )5) Normal [...] earlier ifcardiac condition/status changes in any way. Datto follow up and treatmentshould be determined on the basis of the findings on the initial echocardiogram.Counseling and/or coordination of care was greater than 35 minutes which is morethan 50% of the total time of 60 minutes spent on the encounter. Normal [facility] Special Systems Technician Authentication Interface Message Text Initial VisitSubjective: Zuleika [...] Serial growth ultrasounds every 4 weeks.DELIVERY PLANHospital: [facility] CenterInduction at 39 weeksGBS culture:Contraception:TDAP recommended Constipation during [...] weeks for OB visit and BPP in [place].Oksana Amado MD Normal [facility] Cytogenomic Microarray Nivia sis of Bloodon 09-10-2017 Cytogenomic Microarray Analysis of Blood SEE BELOW Normal [facility] Comment on above: Result Comment: SPEC IMEN: BLOODCLINICAL INFORMATION: Learning disability[F81.9]TEST: CYTOGENOMIC MICROARRAY ANALYSISRESULT SUMMARY:Normal femaleNOMENCLATURE:arr(1-22,X)d2MAPQGJXESZXJYX & COMMENTS:The cytogenomics microarray analysis indicated no [...] whole genome microarray analysis was performed the FDA-clearedLearn It Systems(R) Dx platform, which contains approximately 2.7million markers, including 1,953,246 unique non-polymorphic copy numberprobes and 743,304 single nucleotide polymorphism (SNP) probes. Thegenome-wide functional resolution of this assay is approximately 25 kbfor deletions and 50 kb for duplications. This microarray andassociated software (Chromosome Analysis Suite Dx) were manufactured bye[employer] and used by the Cytogenetics and Molecular DiagnosticsLaboratories of [facility] for the purpose ofidentifying DNA copy number [...] further information regarding intendeduse and limitations, see [email or web address]/cytoscandx.Note: The Cytogenetics Laboratory has this patient's blood [...] for additional testing. 09/19/2017 BIGG GARCIA, PH.D., [facility], [facility] 09/19/2017 Performed By: #### M CRY1 ####[facility] [address] [phone] MRI (SINGLE)on 018 MRI (SINGLE) MRI (SINGLE)CL [...] Dr. AJ CAMILO at 09/10/2017 10:21 Normal [facility] Progress Noteon 09-10-2017 Special Systems Technician Authentication Interface Message Text The total patient time of the visit was 15 minutes, of which greater than 50% of the time was spent counseling and coordinating care. Normal [facility] Auto Diffon 09-03-2017 Basophils Auto #/vol (Bld) 0.1 E3/mcL Normal 0.0-0.2 [facility] Comment on above: Order Comment: Order Added by Discern Expert. Performed By: #### 2 [id number] ####[address]NE [address] [place] [address] Basophils/100 WBC Auto (Bld) 0.5 % Normal 0.0-2.0 [facility] Comment on above: Order Comment: Order Added by Discern Expert. Performed By: #### 2 [id number] ####[address]EN [address] [place] [address] Eos Absolute 0.0 E3/mcL Normal 0.0-0.7 [facility] [facility] Comment on above: Order Comment: Order Added by Discern Expert. Performed By: #### 2 737125 ####KADEN BairdRsdCmbv7494 [place] [address] Eosinophils/100 leukocytes 0.4 % Normal 0.0-11.0 [facility] Comment on above: Order Comment: Order Added by Discern Expert. Performed By: #### 2 248321 ####KADEN BairdTxqZzrg5005 [place] [address] Lymphocytes 1.3 E3/mcL Normal 1.2-3.4 [facility] Comment on above: Order Comment: Order Added by Discern Expert. Performed By: #### 2 842465 ####KADEN Luceroo[address] [place] [address] Lymphocytes/100 leukocytes 13.1 % Low 20.0-55.0 [facility] Comment on above: Order Comment: Order Added by Discern Expert. Performed By: #### 2 735189 ####KADEN BairdHwxWexc6290 [place] [address] [place] Absolute 0.4 E3/mcL Normal 0.0-0.7 [facility] Comment on above: Order Comment: Order Added by Discern Expert. Performed By: #### 2 515104 ####KADEN Luceroo[address] [place] [address] Monocytes/100 leukocytes 4.3 % Normal 0.0-10.0 [facility] Comment on above: Order Comment: Order Added by Discern Expert. Performed By: #### 2 357431 ####KADEN BairdQwhMxwb4745 [place] [address] Neutro Absolute 8.4 E3/mcL High 1.4-6.5 [facility] Comment on above: Order Comment: Order Added by Discern Expert. Performed By: #### 2 642208 ####KADEN BairdKzoFemi2081 [place] [address] Neutro Auto 81.7 % High 37.0-75.0 [facility] Comment on above: Order Comment: Order Added by Discern Expert. Performed By: #### 2 311553 ####KADEN Luceroo[address] [place] [address] CBC w/ Auto Diffon 8 Erythrocyte distribution width Auto Ratio (RBC) 13.1 % Normal 11.5-14.5 [facility] Comment on above: Performed By: #### 2 474025 ####KADEN Luceroo[address] [place] 7016005 Erythrocytes (RBC) 3.90 E6/mcL Normal 3.90-5.40 [facility] Comment on above: Performed By: #### 2 337946 ####KADEN Luc[address] [place] 7016005 Hematocrit (HCT) 34.7 % Low 36.0-48.[address] [facility] Comment on above: Performed By: #### 2 204850 ####KADEN [address] [place] [address]016005 Hemoglobin mass conc (Bld) 11.8 g/dL Low 12.0-16.0 [facility] Comment on above: Performed By: #### 2 909504 ####KADEN [address] [place] [address] MCH 30.3 pg Normal 27.0-31.0 [facility] Comment on above: Performed By: #### 2 069931 ####KADEN uLceroo1025 [place] [address] MCHC mass conc (RBC) 34.2 g/dL Normal 33.0-37.[address] [facility] Comment on above: Performed By: #### 2 032436 ####KADEN BairdNcgCbiv7740 [place] [address] MCV 88.8 fL Normal 78.0-100.0 [facility] Comment on above: Performed By: #### 2 212320 ####KADEN BairdYvcZodl5105 [place] [address] Platelet mean volume (PMV) 7.3 fL Low 7.4-11.0 [facility] Comment on above: Performed By: #### 2 349134 ####KADEN Luc[address] [place] [address] Platelets 218 E3/mcL Normal 130-400 [facility] Comment on above: Performed By: #### 2 866343 ####KADEN [address] [place] [address] WBC (Leukocytes) 10.2 E3/mcL Normal 3.6-11.0 [facility] Comment on above: Performed By: #### 2 163855 ####KADEN Luceroo[address] [place] [address] Gest Scr Glu 1 Hron 09-04-19 18 Glucose mass conc 113 mg/dL Normal 70-140 [facility] Comment on above: Performed By: #### 2 475154 ####KADEN [address] [place] [address] FISH Probeon 08-13-2017 Protein mass conc SEE BELOW Normal [facility] Comment on above: Result Comment: SPEC IMEN: BLOOD - [id number] INFORMATION:TEST: FISH Analysis of the DiGeorge/VCFS Region [...] Metaphase images: 2The Vysis LSI DARREN Spectrum Mitchell Probe contains the DARREN gene (3'non-coding region of TUPLE1, W17R345, and [id number]. The Vysis LSI ARSAspectrum Green Probe includes [...] performance characteristics determinedby the Cytogenetics Laboratory of [facility]. It hasnot been cleared or approved by [...] J Med Barbara [id number]. BIGG GARCIA, PH.D., [facility], [facility] 08/16/2017 Performed By: #### F MARIA ####[facility] of [address] [phone] Progress Noteon 08-13-2017 Special Systems Technician Authentication Interface Message Text Met with patient and FOBAaron for enlarged aortic root. Medical, surgical and [...] understanding of findingsWork History: unemployed. Information on [facility] services given.Consent to share information with FTC team, OB and merchandise flow associate signed. Pt plans to deliver [place] [facility] [place]. Currently with Dr. Shekhar Dyson.Heel Curver is undecided. ACHP list provided and discussed [...] was spent counseling and coordinating care. Normal [facility] Special Systems Technician Authentication Interface Message Text Thank you for [...] size. There was a patent foramen ovale, uhnidsuzp-ld-chtr shunt.Tricuspid valve:Normal tricuspid valve. There was normal [...] 60 minutes spent on the encounter. Normal [facility] Progress Noteon 07-18-2017 Special Systems Technician Authentication Interface Message Text [facility] MATERNAL- MEDICINE CONSULTReferring/Requestin g Provider: Christian Ivan DOPCP: EXTERNAL PROVIDERINDICATION FOR CONSULT: maternal history of PDA, repaired as a baby and herbrother from complications with PDAHISTORY OF PRESENT ILLNESS:Patient [...] no palpitations. She usually doesnot see a music minister, but did have a recent echo due to .OB HistoryGravida Para Term AB Living2 0 1SAB TAB Ectopic Multiple Live Births1# Outcome Date GA Lbr Nam/2nd Weight Sex Delivery Anes PTL Lv2 Current1 SAB 2014Obstetric CommentsNo D&C needed-miscarried very early.Past Medical History:Diagnosis [...] Stroke Maternal Grandmother Heart Disease Maternal Grandmother ID Clotting Disorder Maternal Grandfather Miscarriages / Stillbirths [...] a child 07/18/2017 Consider evaluation with social contact worker to assess for any needs duringpregnancy or after. Will have genetic consult with [facility] evaluation. cardiac anomaly complicating , antepartum 07/18/2017 Dilated aortic root seen on ultrasound along with large umbilical cordvarix, dolichocephaly DW Dr. Zazueta, verbal order to refer to [facility] Will be scheduled with pediatric cardiology. Also, patient and family members have a history of learning disabilities,including an individual learning plan in school. She will talk to her familymembers and bring as much information as is available for her genetics consult.She has transportation to [place] and [facility]The total patient time of the visit was 30 minutes, of which was greater than50% of the time was spent counseling and coordinating care. Normal [facility] IGP W/hpv Rfx [id number] 05-07 Diagnosis: See Ref Lab Report Normal [facility] Comment on above: Order Comment: Thin Prep. Performed By: #### 2 032264 ####KADEN Luceroo[address] [place] [address] C Urineon 05-03-2017 C Urine Final Report: Normal skin alonso isolated Normal [facility] Comment on above: Performed By: #### 2 104885 ####KADEN Luceroo[address] [place] [address] RPRon 05-03-2017 RPR Ql Non-Reactive Normal Non-Reacti ve [facility] Comment on above: Performed By: #### 2 796230 ####KADEN Luceroo[address] [place] [address] Hep Bs Agon 05-02-2017 BSA (Body Surface Area) Negative Normal Negative [facility] Comment on above: Result Comment: Perf ormed At: [facility] [address] [id number] Vincent PhD Ph:[phone] Performed By: #### 2 587445 ####KADEN BairdOrkGlti4226 [place] [address] ABO/Rh Echoon 05-01-2017 ABO/Rh E Interp... Positive Normal [facility] Comment on above: Performed By: #### 2 891610 ####KADEN BairdCkcZzdp5810 [place] [address] Antibody Screen Cap...on Screen Interp... Negative Normal [facility] Comment on above: Performed By: #### 2 346677 ####KADEN BairdOvcJnvu4864 [place] [address] Auto Diffon 05-01-2017 Basophils Auto #/vol (Bld) 0.0 E3/mcL Normal 0.0-0.2 [facility] Comment on above: Order Comment: Order Added by Discern Expert. Performed By: #### 2 424454 ####KADEN Urinalysis Manual Wy[address] [place], [place] [address] Basophils/100 WBC Auto (Bld) 0.4 % Normal 0.0-2.0 [facility] Comment on above: Order Comment: Order Added by Discern Expert. Performed By: #### 2 358232 ####KADEN Urinalysis Manual [address] [place] [address] Eos Absolute 0.1 E3/mcL Normal 0.0-0.7 [facility] Comment on above: Order Comment: Order Added by Discern Expert. Performed By: #### 2 309150 ####KADEN Urinalysis Manual [address]sa[address] [place] [address] Eosinophils/100 leukocytes 0.7 % Normal 0.0-11.0 [facility] Comment on above: Order Comment: Order Added by Discern Expert. Performed By: #### 2 417718 ####KADEN [place] [address] Lymphocytes 1.8 E3/mcL Normal 1.2-3.4 [facility] Comment on above: Order Comment: Order Added by Discern Expert. Performed By: #### 2 373384 ####KADEN Urinalysis Manual C[address]fwu[address] [place] [address] Lymphocytes/100 leukocytes 17.1 % Low 20.0-55.0 [facility] Comment on above: Order Comment: Order Added by Discern Expert. Performed By: #### 2 322864 ####KADEN Urinalysis Manual [address] [place] [address] [place] Absolute 0.5 E3/mcL Normal 0.0-0.7 [facility] Comment on above: Order Comment: Order Added by Discern Expert. Performed By: #### 2 877002 ####KADEN Urinalysis Manual Pjztusyogh[address] [place] [address] Monocytes/100 leukocytes 5.0 % Normal 0.0-10.0 [facility] Comment on above: Order Comment: Order Added by Discern Expert. Performed By: #### 2 775750 ####KADEN Urinalysis Manual Xxlixinhca[address] [place] [address] Neutro Absolute 8.0 E3/mcL High 1.4-6.5 [facility] Comment on above: Order Comment: Order Added by Discern Expert. Performed By: #### 2 079325 ####KADEN Urinalysis Manual Tydkyvpjui[address] [place] [address] Neutro Auto 76.8 % High 37.0-75.0 [facility] Comment on above: Order Comment: Order Added by Discern Expert. Performed By: #### 2 758647 ####KADEN Urinalysis Manual Aaytcofzkt[address] [place] [address] CBC w/ Auto Diffon 7 Erythrocyte distribution width Auto Ratio (RBC) 15.2 % High 11.5-14.5 [facility] Comment on above: Performed By: #### 2 034682 ####KADEN Urinalysis Manual [address]pwpnojr[address] [place] [address] Erythrocytes (RBC) 4.90 E6/mcL Normal 3.90-5.40 [facility] Comment on above: Performed By: #### 2 387840 ####KADEN Urinalysis Manual Bfcztpclkj[address] [place] [address] Hematocrit (HCT) 41.1 % Normal 36.0-48.[address] [facility] Comment on above: Performed By: #### 2 052296 ####KADEN Urinalysis Manual Qhibaocncj[address] [place] [address] Hemoglobin mass conc (Bld) 13.5 g/dL Normal 12.0-16.0 [facility] Comment on above: Performed By: #### 2 186498 ####KADEN Urinalysis Manual Pywntlpgws[address] [place] [address] MCH 27.5 pg Normal 27.0-31.0 [facility] Comment on above: Performed By: #### 2 842566 ####KADEN Urinalysis Manual W[address]xqryogx[address] [place] [address] MCHC mass conc (RBC) 32.8 g/dL Low 33.0-37.[address] [facility] Comment on above: Performed By: #### 2 518356 ####KADEN Urinalysis Manual Mvxecnxvwe[address] [place] [address] MCV 83.9 fL Normal 78.0-100.0 [facility] Comment on above: Performed By: #### 2 250979 ####KADEN Urinalysis Manual Jcslaccwum[address] [place], [place] [address] Platelet mean volume (PMV) 8.0 fL Normal 7.4-11.0 [facility] Comment on above: Performed By: #### 2 952102 ####KADEN Urinalysis Manual [place] [id number] Platelets 246 E3/mcL Normal 130-400 [facility] Comment on above: Performed By: #### 2 675826 ####KADEN Urinalysis Manual Sjvrdomgrn[address] [place], [place] [address] WBC (Leukocytes) 10.4 E3/mcL Normal 3.6-11.0 [facility] Comment on above: Performed By: #### 2 315043 ####[facility] Urinalysis Manual [place] [id number] Chlamydia GC by PCRon 2016 Chlamydia by PCR. Not Detected Normal Not Detected [facility] Comment on above: Result Comment: Xper t CT/NG Assay performance has not been evaluated in patients less than 14 years of age. Performed By: #### 2 844778 ####KADEN PprMace[address] [place] [address] Gonorrhoeae by PCR Not Detected Normal Not Detected [facility] Comment on above: Result Comment: Xper t CT/NG Assay performance has not been evaluated in patients less than 14 years of age. Performed By: #### 2 011804 ####KADEN HuxHyyl1557 [place] [address] HIV-1/2 Ag/Abon 05-01-2017 HIV-1/2 Ag/Ab Non-Reactive Normal Non-Reacti ve [facility] Comment on above: Performed By: #### 2 719743 ####KADEN Urinalysis Manual Tl[address]yysfgu[address] [place], [place] [address] Rubella IgG Lvlon 05-01-2017 Rubella IgG Lvl 50.8 (POS) Normal [facility] Comment on above: Result Comment: <10I U/ml NON REACTIVE: NOT SCMOPS52-87 IU/ml RUBELLA SPECIFIC AB PRESENT, EVALUATEFURTHER TO DETERMINE IMMUNE STATUS >15 IU/ml REACTIVE, IMMUNE Performed By: #### 2 150683 ####KADEN YgpYtir0231 [place] [address] Auto Diffon 04-22-2017 Basophils Auto #/vol (Bld) 0.1 E3/mcL Normal 0.0-0.2 [facility] Comment on above: Order Comment: Order Added by Discern Expert. Performed By: #### 2 518081 ####KADEN Urinalysis Manual [address]khz[address] [place] [address] Basophils/100 WBC Auto (Bld) 0.6 % Normal 0.0-2.0 [facility] Comment on above: Order Comment: Order Added by Discern Expert. Performed By: #### 2 046202 ####KADEN [place] [address] Eos Absolute 0.0 E3/mcL Normal 0.0-0.7 [facility] Comment on above: Order Comment: Order Added by Discern Expert. Performed By: #### 2 786564 ####KADEN Urinalysis Manual Qvlgwodwbc[address] [place], [place] [address] Eosinophils/100 leukocytes 0.2 % Normal 0.0-11.0 [facility] Comment on above: Order Comment: Order Added by Discern Expert. Performed By: #### 2 575428 ####KADEN Urinalysis Manual Tdqxkagipw[address] [place] [address] Lymphocytes 1.5 E3/mcL Normal 1.2-3.4 [facility] Comment on above: Order Comment: Order Added by Discern Expert. Performed By: #### 2 534769 ####KADEN Urinalysis Manual Mpvijhkloc8542 [place] [address] Lymphocytes/100 leukocytes 10.8 % Low 20.0-55.0 [facility] Comment on above: Order Comment: Order Added by Discern Expert. Performed By: #### 2 041239 ####KADEN Urinalysis Manual Kdevqvwfcl[address] [place] [address] [place] Absolute 0.6 E3/mcL Normal 0.0-0.7 [facility] Comment on above: Order Comment: Order Added by Discern Expert. Performed By: #### 2 776792 ####KADEN Urinalysis Manual Lxwtvtbaww[address] [place] [address] Monocytes/100 leukocytes 4.4 % Normal 0.0-10.0 [facility] Comment on above: Order Comment: Order Added by Discern Expert. Performed By: #### 2 900462 ####KADEN Urinalysis Manual Qbyuyoovzz[address] [place] [address] Neutro Absolute 11.3 E3/mcL High 1.4-6.[address] [facility] Comment on above: Order Comment: Order Added by Discern Expert. Performed By: #### 2 781665 ####KADEN Urinalysis Manual Dffvntihmp[address] [place] [address] Neutro Auto 84.0 % High 37.0-75.0 [facility] Comment on above: Order Comment: Order Added by Discern Expert. Performed By: #### 2 621008 ####KADEN Urinalysis Manual Zbudknskpz[address] [place] [address] BMPon 04-22-2017 BUN/Creatinine Ratio Unable to calc Normal 5.4-30.0 [facility] Comment on above: Performed By: #### 2 051465 ####KADEN Urinalysis Manual Rfoasiqmwr[address] [place] [address] Creatinine mg/dL Low 0.6-1.3 [facility] Comment on above: Performed By: #### 2 398505 ####KADEN Urinalysis Manual Japnlhpwsr[address] [place] [address] Urea nitrogen 7 mg/dL Normal 7-18 [facility] Comment on above: Performed By: #### 2 816432 ####KADEN Urinalysis Manual Krvvmbbmce[address] [place] [address] Calcium 9.6 mg/dL Normal 8.4-10.2 [facility] Comment on above: Performed By: #### 2 773694 ####KADEN Urinalysis Manual Iypedmfidv9948 [place] [address] Chloride 103 mmol/L Normal 98-107 [facility] Comment on above: Performed By: #### 2 211639 ####KADEN Urinalysis Manual Hwrevquohm9729 [place] [address] CO2 21.7 mmol/L Low 24.0-30.0 [facility] Comment on above: Performed By: #### 2 430762 ####KADEN Urinalysis Manual Sdjqfykxzo0297 [place] [address] Glucose mass conc 89 mg/dL Normal 70-99 [facility] Comment on above: Performed By: #### 2 146581 ####KADEN Urinalysis Manual [address] [place] [address] Potassium molar conc 3.6 mmol/L Normal 3.5-5.[address] [facility] Comment on above: Performed By: #### 2 286420 ####KADEN Urinalysis Manual [address]vxxvdukvo[address] [place] [address] Sodium 136 mmol/L Normal 136-145 [facility] Comment on above: Performed By: #### 2 427962 ####KADEN Urinalysis Manual Kunwzazgjj[address] [place] [address] CBC w/ Auto Diffon 7 Erythrocyte distribution width Auto Ratio (RBC) 14.8 % High 11.5-14.5 [facility] Comment on above: Performed By: #### 2 722188 ####KADEN Urinalysis Manual Excmjhdjjl3718 [place] [address] Erythrocytes (RBC) 4.96 E6/mcL Normal 3.90-5.40 [facility] Comment on above: Performed By: #### 2 621552 ####KADEN Urinalysis Manual [address]zjdmn[address]zcx[address] [place] [address] Hematocrit (HCT) 40.9 % Normal 36.0-48.[address] [facility] Comment on above: Performed By: #### 2 919027 ####KADEN Urinalysis Manual Bnxmrapkul[address] [place] [address] Hemoglobin mass conc (Bld) 13.5 g/dL Normal 12.0-16.0 [facility] Comment on above: Performed By: #### 2 644323 ####KADEN Urinalysis Manual Ddebcsjqmp[address] [place] [address] MCH 27.2 pg Normal 27.0-31.0 [facility] Comment on above: Performed By: #### 2 835351 ####KADEN Urinalysis Manual Kumzsaxwii[address] [place] [address] MCHC mass conc (RBC) 33.0 g/dL Normal 33.0-37.[address] [facility] Comment on above: Performed By: #### 2 556184 ####KADEN Urinalysis Manual Olnonalupm[address] [place] [address] MCV 82.4 fL Normal 78.0-100.0 [facility] Comment on above: Performed By: #### 2 328655 ####KADEN Urinalysis Manual Umokgfuchv[address] [place] [address] Platelet mean volume (PMV) 8.0 fL Normal 7.4-11.0 [facility] Comment on above: Performed By: #### 2 862976 ####KADEN Urinalysis Manual Vvnmankfuw[address] [place] [address] Platelets 237 E3/mcL Normal 130-400 [facility] Comment on above: Performed By: #### 2 998736 ####KADEN Urinalysis Manual Bahyfdvkpe[address] [place] [address] WBC (Leukocytes) 13.5 E3/mcL High 3.6-11.0 [facility] Comment on above: Performed By: #### 2 466254 ####KADEN Urinalysis Manual Qxmqlztviq[address] [place] [address] UA Completeon 04-22-2017 UA Blood Negative Normal Negative [facility] Comment on above: Performed By: #### 2 147297 ####KADEN Urinalysis Manual [address]qughlbhn[address] [place] [address] UA Ascorbic Acid 40 mg/dL High <=[address] [facility] Comment on above: Performed By: #### 2 479634 ####KADEN Urinalysis Manual Hweqdnpqdf7102 [place] [address] UA Bacteria 3+ /HPF Abnormal None [facility] Comment on above: Performed By: #### 2 289407 ####KADEN Urinalysis Manual Q[address]zbe[address]acch[address] [place] [address] UA Clarity SltCloudy Abnormal Clear [facility] Comment on above: Performed By: #### 2 876439 ####KADEN Urinalysis Manual Vvkqhwbavi[address] [place] [address] UA Leuk Est Negative Normal Negative [facility] Comment on above: Performed By: #### 2 026108 ####KADEN Urinalysis Manual Wvjsvxoidq[address] [place] [address] UA Mucous Few Abnormal Trace [facility] Comment on above: Performed By: #### 2 333814 ####KADEN Urinalysis Manual Y[address]wroyuir[address] [place] [address] UA Nitrite Negative Normal Negative [facility] Comment on above: Performed By: #### 2 054126 ####KADEN Urinalysis Manual Purrbfaled[address] [place] [address] UA pH 8.0 Normal 4.6-8.0 [facility] Comment on above: Performed By: #### 2 366974 ####KADEN Urinalysis Manual Rqcvhknrlh[address] [place] [address] UA Protein Negative Normal Negative [facility] Comment on above: Performed By: #### 2 185926 ####KADEN Urinalysis Manual Fvusntlgfv[address] [place] [address] UA Spec Grav 1.012 Normal 1.003-1.[address] [facility] Comment on above: Performed By: #### 2 399853 ####KADEN Urinalysis Manual Rhhqjduejp[address] [place] [address] UA Squam Epithelial 0-5 Normal 0-5 [facility] Comment on above: Performed By: #### 2 817556 ####KADEN Urinalysis Manual Lapwklefkc[address] [place] [address] UA Urobilinogen Negative Normal [facility] Comment on above: Performed By: #### 2 945190 ####KADEN Urinalysis Manual Wfvcxqnguh6564 [place] [address] UA WBC 0-5 Normal 0-5 [facility] Comment on above: Performed By: #### 2 968108 ####KADEN Urinalysis Manual Iepckfuuhy9539 [place] [address] Urine, color Yellow Normal Yellow [facility] Comment on above: Performed By: #### 2 823595 ####KADEN Urinalysis Manual Upoxdujphe0946 [place] [address] Urine, glucose Negative Normal Negative [facility] Comment on above: Performed By: #### 2 003047 ####KADEN Urinalysis Manual Orekkqfrcl[address] [place] [address] Urine, ketones presence 1+ Abnormal Negative [facility] Comment on above: Performed By: #### 2 113548 ####KADEN Urinalysis Manual Crodkxpwhh[address] [place] [address] Urine, urobilinogen Negative Normal Negative [facility] Comment on above: Performed By: #### 2 154611 ####KADEN Urinalysis Manual Kscjpahifx[address] [place] [address] eGFRon 04-22-2017 eGFR AA >[address] [facility] Comment on above: Order Comment: Order added by Discern Expert. Performed By: #### 2 [id number] ####KADEN Urinalysis Manual [address] [place] [address] eGFR (non-black) mL/min/{1.73_m2} Normal [facility] Comment on above: Order Comment: Order added by Discern Expert. Performed By: #### 2 [id number] ####KADEN Urinalysis Manual Faiswmcise[address] [place] [address] C Urineon 04-20-2017 C Urine Final Report: Normal skin alonso isolated Normal [facility] Comment on above: Performed By: #### 2 [id number] ####KADEN Urinalysis Manual Efaqzxecne[address] [place] [address] BMPon 04-18-2017 BUN/Creatinine Ratio 15.0 ratio Normal 5.4-30.[address] [facility] Comment on above: Performed By: #### 2 [id number] ####KADEN IblYdvl3948 [place] [address] Creatinine 0.6 mg/dL Normal 0.6-1.3 [facility] Comment on above: Performed By: #### 2 137356 ####KADEN YiuWvqf3810 [place] [address] Urea nitrogen 9 mg/dL Normal 7-18 [facility] Comment on above: Performed By: #### 2 938590 ####KADEN StsHdrr1006 [place] [address] Calcium 9.6 mg/dL Normal 8.4-10.2 [facility] Comment on above: Performed By: #### 2 359046 ####KADENMorelia BaiUwwTexp4469 [place] [address] Chloride 102 mmol/L Normal 98-107 [facility] Comment on above: Performed By: #### 2 359176 ####KADEN RudIeeo7184 [place] [address] CO2 23.3 mmol/L Low 24.0-30.0 [facility] Comment on above: Performed By: #### 2 695212 ####KADEN TfqDrxb1038 [place] [address] Glucose mass conc 93 mg/dL Normal 70-99 [facility] Comment on above: Performed By: #### 2 249055 ####KADEN TdmVrsq1176 [place] [address] Potassium molar conc 3.5 mmol/L Normal 3.5-5.[address] [facility] Comment on above: Performed By: #### 2 109599 ####KADEN RwuTzhy4811 [place] [address] Sodium 136 mmol/L Normal 136-145 [facility] Comment on above: Performed By: #### 2 035608 ####KADENMorelia BaiKiaBhwo7183 [place] [address] UA Completeon 04-18-2017 UA Blood Negative Normal Negative [facility] Comment on above: Performed By: #### 2 163132 ####KADEN Urinalysis Manual Dcfkuufmjh9935 [place] [address] UA Amorph Chastity 2+ /HPF Abnormal None [facility] Comment on above: Performed By: #### 2 534663 ####KADEN Urinalysis Manual Vcqfeuexqg[address] [place] [address] UA Ascorbic Acid 40 mg/dL High <=[address] [facility] Comment on above: Performed By: #### 2 130813 ####KADEN Urinalysis Manual Updylwjbju[address] [place] [address] UA Clarity Cloudy Abnormal Clear [facility] Comment on above: Performed By: #### 2 627147 ####KADEN Urinalysis Manual Klpgvewous[address] [place] [address] UA Leuk Est Negative Normal Negative [facility] Comment on above: Performed By: #### 2 187866 ####KADEN Urinalysis Manual Cvcgzyjjzi2439[address] [place] [address] UA Mucous Trace Abnormal Trace [facility] Comment on above: Performed By: #### 2 253167 ####KADEN Urinalysis Manual Cuhefryreo3387[address] [place] [address] UA Nitrite Negative Normal Negative [facility] Comment on above: Performed By: #### 2 156665 ####KADEN Urinalysis Manual Kmttbneilz39[address] [place] [address] UA pH 7.0 Normal 4.6-8.0 [facility] Comment on above: Performed By: #### 2 082376 ####KADEN Urinalysis Manual Lkkwdiiepw1226[address] [place] [address] UA Protein Negative Normal Negative [facility] Comment on above: Performed By: #### 2 264025 ####KADEN Urinalysis Manual Qpzrbdbiak7[address] [place] [address] UA Spec Grav 1.018 Normal 1.003-1.[address] [facility] Comment on above: Performed By: #### 2 636519 ####KADEN Urinalysis Manual Oicfytluxy[address] [place] [address] UA Squam Epithelial 0-5 Normal 0-5 [facility] Comment on above: Performed By: #### 2 573755 ####KADEN Urinalysis Manual Tkcwindqnc5868[address] [place] [address] UA Urobilinogen Negative Normal [facility] Comment on above: Performed By: #### 2 158642 ####KADEN Urinalysis Manual Egryaybifg2321 [place] [address] Urine, color Yellow Normal Yellow [facility] Comment on above: Performed By: #### 2 297059 ####KADEN Urinalysis Manual Kijfaxuntu[address] [place] [address] Urine, glucose Negative Normal Negative [facility] Comment on above: Performed By: #### 2 814030 ####KADEN Urinalysis Manual Sovftiymch6813[address] [place] [address] Urine, ketones presence 2+ Abnormal Negative [facility] Comment on above: Performed By: #### 2 746346 ####KADEN Urinalysis Manual Vkgpjhkoui7[address] [place] [address] Urine, urobilinogen Negative Normal Negative [facility] Comment on above: Performed By: #### 2 245125 ####KADEN Urinalysis Manual Tsrnnfxyph[address] [place] [address] eGFRon 04-18-2017 eGFR (non-black) mL/min/{1.73_m2} Normal [facility] Comment on above: Order Comment: Order added by Discern Expert. Performed By: #### 1 [id number] ####KADEN EmiKyat6932 [place] [address] eGFR AA >[address] [facility] Comment on above: Order Comment: Order added by Discern Expert. Performed By: #### 1 [id number] ####KADEN EowWuru5805 [place] [address] Auto Diffon 04-11-2017 Basophils Auto #/vol (Bld) 0.1 E3/mcL Normal 0.0-0.2 [facility] Comment on above: Order Comment: Order Added by Discern Expert. Performed By: #### 2 644372 ####KADEN ClaRwbm1848 [place] [address] Basophils/100 WBC Auto (Bld) 0.7 % Normal 0.0-2.0 [facility] Comment on above: Order Comment: Order Added by Discern Expert. Performed By: #### 2 435886 ####KADEN BairdSqqYvkc8760 [place] [address] Eos Absolute 0.0 E3/mcL Normal 0.0-0.7 [facility] Comment on above: Order Comment: Order Added by Discern Expert. Performed By: #### 2 025615 ####KADEN BairdPcgNfll0201 [place] [address] Eosinophils/100 leukocytes 0.1 % Normal 0.0-11.0 [facility] Comment on above: Order Comment: Order Added by Discern Expert. Performed By: #### 2 493566 ####KADEN CpuQifs0807 [place] [address] Lymphocytes 1.5 E3/mcL Normal 1.2-3.4 [facility] Comment on above: Order Comment: Order Added by Discern Expert. Performed By: #### 2 626664 ####KADEN FfaJgwe3569 [place] [address] Lymphocytes/100 leukocytes 17.2 % Low 20.0-55.0 [facility] Comment on above: Order Comment: Order Added by Discern Expert. Performed By: #### 2 401290 ####KADEN ZrnAmyo6757 [place] [address] [place] Absolute 0.6 E3/mcL Normal 0.0-0.7 [facility] Comment on above: Order Comment: Order Added by Discern Expert. Performed By: #### 2 095697 ####KADEN JcmVwpz9797 [place] [address] Monocytes/100 leukocytes 6.6 % Normal 0.0-10.0 [facility] Comment on above: Order Comment: Order Added by Discern Expert. Performed By: #### 2 674273 ####KADEN CbuMqtm0330 [place] [address] Neutro Absolute 6.7 E3/mcL High 1.4-6.5 [facility] Comment on above: Order Comment: Order Added by Discern Expert. Performed By: #### 2 070176 ####KADEN BairdWbdTpdn9219 [place] [address] Neutro Auto 75.4 % High 37.0-75.0 [facility] Comment on above: Order Comment: Order Added by Discern Expert. Performed By: #### 2 150730 ####KADEN Luceroo1025 [place] [address] BMPon 04-11-2017 BUN/Creatinine Ratio 12.9 ratio Normal 5.4-30.[address] [facility] Comment on above: Performed By: #### 2 686829 ####KADEN BairdNelRwkw9114 [place] [address] Creatinine 0.7 mg/dL Normal 0.6-1.3 [facility] Comment on above: Performed By: #### 2 543255 ####KADEN Bai1025 [place] [address] Urea nitrogen 9 mg/dL Normal 7-18 [facility] Comment on above: Performed By: #### 2 528572 ####KADEN LxsPejh4037 [place] [address] Calcium 9.5 mg/dL Normal 8.4-10.2 [facility] Comment on above: Performed By: #### 2 288827 ####KADEN HouUerg7300 [place] [address] Chloride 105 mmol/L Normal 98-107 [facility] Comment on above: Performed By: #### 2 570021 ####KADEN EmsGlam3907 [place] [address] CO2 22.5 mmol/L Low 24.0-30.0 [facility] Comment on above: Performed By: #### 2 566803 ####KADEN YkfDzbc1760 [place] [address] Glucose mass conc 92 mg/dL Normal 70-99 [facility] Comment on above: Performed By: #### 2 259713 ####KADEN CrqCkql5397 [place] [address] Potassium molar conc 3.6 mmol/L Normal 3.5-5.[address] [facility] Comment on above: Performed By: #### 2 696444 ####KADENMorelia BaiVxoWrsl5812 [place] [address] Sodium 137 mmol/L Normal 136-145 [facility] Comment on above: Performed By: #### 2 571851 ####KADEN CsqFtli5601 [place] [address] BhCG Quanton 04-11-2017 Beta hCG Qnt 8564.0 mIU/m Normal [facility] Comment on above: Result Comment: FEMA LE (NON-) & MALE <3 BORDERLINE 3 - 5 SUGGEST REPEAT TESTING FEMALE () 1 D - 1 WK 5 - 50 1 - 2 WK 50 - 500 2 - 3 WK 100 - 5000 3 - 4 WK 500 - 26281 4 - 5 WK 1000 - 10750 5 - 6 WK 43114 - 803387 6 - 8 W[place] [address] - 035047 2 - 3 [place] [address] - 724160 Performed By: #### 2 096412 ####KADENMorelia BaiOwhDamu1276 [place] [address] CBC w/ Auto Diffon 7 Erythrocyte distribution width Auto Ratio (RBC) 13.9 % Normal 11.5-14.5 [facility] Comment on above: Performed By: #### 2 913467 ####KADENMorelia LuceroMerZeet4102 [place] [address] Erythrocytes (RBC) 4.63 E6/mcL Normal 3.90-5.40 [facility] Comment on above: Performed By: #### 2 884423 ####KADENMorelia LuceroLkzUofd5693 [place] [address] Hematocrit (HCT) 38.2 % Normal 36.0-48.[address] [facility] Comment on above: Performed By: #### 2 709317 ####KADENMorelia BairdCqrLzzu0581 [place] [address] Hemoglobin mass conc (Bld) 12.6 g/dL Normal 12.0-16.0 [facility] Comment on above: Performed By: #### 2 159961 ####KADEN BairdPwyTqcw8048 [place] [address] MCH 27.2 pg Normal 27.0-31.0 [facility] Comment on above: Performed By: #### 2 427952 ####KADEN Luceroo1025 [place] [address] MCHC mass conc (RBC) 33.0 g/dL Normal 33.0-37.[address] [facility] Comment on above: Performed By: #### 2 691752 ####KADEN Luceroo1025 [place] 7016005 MCV 82.6 fL Normal 78.0-100.0 [facility] Comment on above: Performed By: #### 2 984193 ####KADEN Luceroo1025 [place] 7016005 Platelet mean volume (PMV) 8.0 fL Normal 7.4-11.0 [facility] Comment on above: Performed By: #### 2 964204 ####KADEN Luceroo1025 [place] 7016005 Platelets 233 E3/mcL Normal 130-400 [facility] Comment on above: Performed By: #### 2 852465 ####KADEN Luceroo1025 [place] [address] WBC (Leukocytes) 9.0 E3/mcL Normal 3.6-11.[address] [facility] Comment on above: Performed By: #### 2 791627 ####KADEN Luceroo1025 [place] 7016005 UA Completeon 04-11-2017 UA Blood Negative Normal Negative [facility] Comment on above: Result Comment: High concentration of Ascorbic Acid present in urine. This may cause False Negative Occ Blood. Review microscopic results and patient's clinical symptoms. Performed By: #### 8 [id number] ####KADEN Urinalysis Automated Qojtktvngc6216 [place] [address] UA Amorph Chastity 1+ /HPF Abnormal None [facility] Comment on above: Performed By: #### 8 4599586 ####KADEN Urinalysis Automated Naqcjacilf3565 [place] [address] UA Ascorbic Acid 40 mg/dL High <=[address] [facility] Comment on above: Performed By: #### 8 [id number] ####KADEN Urinalysis Automated Sphmcybdsh6888 [place] [address] UA Bacteria Trace Abnormal None [facility] Comment on above: Performed By: #### 8 [id number] ####KADEN Urinalysis Automated Wqfunudlxl5773 [place] [address] UA Clarity Cloudy Abnormal Clear [facility] Comment on above: Performed By: #### 8 6963734 ####KADEN Urinalysis Automated Nzvwyyllbf5402 [place] [address] UA Leuk Est Negative Normal Negative [facility] Comment on above: Performed By: #### 8 [id number] ####KADEN Urinalysis Automated [address] [place] [address] UA Mucous Few Abnormal Trace [facility] Comment on above: Performed By: #### 8 2521524 ####KADEN Urinalysis Automated Ressvljwgu[address] [place] [address] UA Nitrite Negative Normal Negative [facility] Comment on above: Performed By: #### 8 3989100 ####KADEN Urinalysis Automated Ikubgciulf[address] [place] [address] UA pH 7.0 Normal 4.6-8.0 [facility] Comment on above: Performed By: #### 8 6983604 ####KADEN Urinalysis Automated Bwfqczfpfj[address] [place] [address] UA Protein Negative Normal Negative [facility] Comment on above: Performed By: #### 8 6105194 ####KADEN Urinalysis Automated Grrraasrta7[address] [place] [address] UA Spec Grav 1.025 Normal 1.003-1.[address] [facility] Comment on above: Performed By: #### 8 [id number] ####KADEN Urinalysis Automated Cwhhzlfhmp[address] [place] [address] UA Squam Epithelial 5-10 Abnormal 0-5 [facility] Comment on above: Performed By: #### 8 [id number] ####KADEN Urinalysis Automated Xahctaiqav0465[address] [place] [address] UA Urobilinogen 2.0 mg/dL Abnormal [facility] Comment on above: Performed By: #### 8 0442291 ####KADEN Urinalysis Automated Iruhaoqqhd8446[address] [place] [address] Urine, color Yellow Normal Yellow [facility] Comment on above: Performed By: #### 8 4807274 ####KADEN Urinalysis Automated Uxhgwvrkvo4407 [place] [address] Urine, erythrocytes 0-3 Normal 0-3 [facility] Comment on above: Performed By: #### 8 4376819 ####KADEN Urinalysis Automated Kkuwdwrhiw9913 [place] [address] Urine, glucose Negative Normal Negative [facility] Comment on above: Performed By: #### 8 5244498 ####KADEN Urinalysis Automated [address]qrdr[address] [place] [address] Urine, ketones presence 2+ Abnormal Negative [facility] Comment on above: Performed By: #### 8 [id number] ####KADEN Urinalysis Automated [address]cv[address]kwkj[address] [place] [address] Urine, urobilinogen Negative Normal Negative [facility] Comment on above: Performed By: #### 8 [id number] ####KADEN Urinalysis Automated Esahrlzznj039[address] [place] [address] eGFRon 04-11-2017 eGFR (non-black) mL/min/{1.73_m2} Normal [facility] Comment on above: Order Comment: Order added by Discern Expert. Performed By: #### 1 [id number] ####KADEN AwdOacw1403 [place] [address] eGFR AA >[address] [facility] Comment on above: Order Comment: Order added by Discern Expert. Performed By: #### 1 [id number] ####KADEN AkbSjug3667 [place] [address] U BhCG Qlton 03-20-2017 HCG.beta subunit Qn Negative Normal Neg [facility] Comment on above: Performed By: #### 2 600932 ####KADEN Urinalysis Manual Smauzbbdqj1112 [place] [address] UA Completeon 03-20-2017 UA Blood Negative Normal Negative [facility] Comment on above: Performed By: #### 8 1174437 ####KADEN Urinalysis Automated Kvxcrjivuc38[address] [place] [address] UA Amorph Chastity 1+ /HPF Abnormal None [facility] Comment on above: Performed By: #### 8 [id number] ####KADEN Urinalysis Automated Uvsdlhpoak7584 [place] [address] UA Bacteria 2+ /HPF Abnormal None [facility] Comment on above: Performed By: #### 8 [id number] ####KADEN Urinalysis Automated Mbemibuimv4985 [place] [address] UA Clarity Cloudy Abnormal Clear [facility] Comment on above: Performed By: #### 8 [id number] ####KADEN Urinalysis Automated Oqwkvcithz7175 [place] [address] UA Leuk Est 1+ Abnormal Negative [facility] Comment on above: Performed By: #### 8 [id number] ####KADEN Urinalysis Automated Yrhkutnwna1880[address] [place] [address] UA Mucous Occasional Abnormal Trace [facility] Comment on above: Performed By: #### 8 [id number] ####KADEN Urinalysis Automated Aaqzehawui877934 [place] [address] UA Nitrite Negative Normal Negative [facility] Comment on above: Performed By: #### 8 [id number] ####KADEN Urinalysis Automated Zpnljspkdv747[address] [place] [address] UA pH 6.0 Normal 4.6-8.0 [facility] Comment on above: Performed By: #### 8 [id number] ####KADEN Urinalysis Automated Vyaytmzqzw[address] [place] [address] UA Protein 1+ Abnormal Negative [facility] Comment on above: Performed By: #### 8 1469125 ####KADEN Urinalysis Automated Bgblvlyjok3901 [place] [address] UA Spec Grav 1.019 Normal 1.003-1.[address] [facility] Comment on above: Performed By: #### 8 5858143 ####KADEN Urinalysis Automated Xazbmvedlp[address] [place], [place] [address] UA Squam Epithelial 5-10 Abnormal 0-5 [facility] Comment on above: Performed By: #### 8 [id number] ####KADEN Urinalysis Automated Evptoodajv1663 [place] [address] UA Urobilinogen Negative Normal [facility] Comment on above: Performed By: #### 8 [id number] ####KADEN Urinalysis Automated Lzegbizerz9083 [place] [address] UA WBC >50 Abnormal 0-5 [facility] Comment on above: Performed By: #### 8 1942187 ####KADEN Urinalysis Automated Ykkbdkjhdk4079 [place] [address] Urine, color Yellow Normal Yellow [facility] Comment on above: Performed By: #### 8 [id number] ####KADEN Urinalysis Automated Kkpofdvrwp6996 [place] [address] Urine, erythrocytes 5-10 Abnormal 0-3 [facility] Comment on above: Performed By: #### 8 [id number] ####KADEN Urinalysis Automated Jhwwoooeah4121 [place] [address] Urine, glucose Negative Normal Negative [facility] Comment on above: Performed By: #### 8 [id number] ####KADEN Urinalysis Automated Xkabkmgppv8393 [place] [address] Urine, ketones presence Negative Normal Negative [facility] Comment on above: Performed By: #### 8 1394519 ####KADEN Urinalysis Automated Pttjmukfbb4766 [place] [address] Urine, urobilinogen Negative Normal Negative [facility] Comment on above: Performed By: #### 8 [id number] ####KADEN Urinalysis Automated Euabwkmliy4024 [place] [address] Vital Signs Date Time Vital Sign Value Performing Clinician Facility 07-18-2023 10:30-0500 Body mass index (BMI) [Ratio] 26.7 kg/m2 Golf[employer] DO Work Phone: [facility] 07-18-2023 10:30-0500 Body weight 75.03 kg Golf121 DO Work Phone: [facility] 07-18-2023 10:30-0500 Diastolic blood pressure 68 mm[Hg] [employer]i [employer] Work Phone: [facility] 07-18-2023 10:30-0500 Systolic blood pressure 106 mm[Hg] Cuong Ortiz [employer] Work Phone: [facility] 02-11-2023 14:13-0400 Body height 165.1 cm PA-C Andie Wyatt Work Phone: [facility] 02-11-2023 14:13-0400 Body temperature 97.9 [degF] PA-C Andie Wyatt Work Phone: [facility] 02-11-2023 14:13-0400 Body weight 70.55 kg PA-C Andie Wyatt Work Phone: [facility] 02-11-2023 14:13-0400 Diastolic blood pressure 80 mm[Hg] PA-C Andie Wyatt Work Phone: [facility] 02-11-2023 14:13-0400 Heart rate 60 /min FERMIN-C Andie Wyatt Work Phone: [facility] 02-11-2023 14:13-0400 Respiratory rate 15 /min PA-C Andie Wyatt Work Phone: [facility] 02-11-2023 14:13-0400 SaO2% (BldA) [Mass fraction] 99 % PA-C Andie Wyatt Work Phone: [facility] 02-11-2023 14:13-0400 Systolic blood pressure 134 mm[Hg] PA-Ventura Wyatt Work Phone: [facility] 02-08-2023 12:36-0400 Body height 165.1 cm PA-Ventura Wyatt Work Phone: [facility] 02-08-2023 12:36-0400 Body temperature 98.2 [degF] PA-C Andie Wyatt Work Phone: [facility] 02-08-2023 12:36-0400 Body weight 72.57 kg PA-Ventura Wyatt Work Phone: [facility] 02-08-2023 12:36-0400 Diastolic blood pressure 84 mm[Hg] PA-Ventura Wyatt Work Phone: [facility] 02-08-2023 12:36-0400 Heart rate 74 /min PA-C Andie Wyatt Work Phone: [facility] 02-08-2023 12:36-0400 Respiratory rate 15 /min PA-C Andie Wyatt Work Phone: [facility] 02-08-2023 12:36-0400 SaO2% (BldA) [Mass fraction] 98 % PA-C Andie Wyatt Work Phone: [facility] 02-08-2023 12:36-0400 Systolic blood pressure 150 mm[Hg] PA-C Andie Wyatt Work Phone: [facility] 12-19-2022 14:43-0400 Body temperature 96.9 [degF] FERMIN-C Andie Wyatt Work Phone: [facility] 12-19-2022 14:43-0400 Diastolic blood pressure 74 mm[Hg] PA-Ventura Wyatt Work Phone: [facility] 12-19-2022 14:43-0400 Heart rate 59 /min PA-C Andie Wyatt Work Phone: [facility] 12-19-2022 14:43-0400 Respiratory rate 18 /min PA-Ventura Wyatt Work Phone: [facility] 12-19-2022 14:43-0400 SaO2% (BldA) [Mass fraction] 100 % FERMIN-Ventura Wyatt Work Phone: [facility] 12-19-2022 14:43-0400 Systolic blood pressure 115 mm[Hg] PA-Ventura Wyatt Work Phone: [facility] 12-19-2022 14:00-0400 Diastolic blood pressure 89 mm[Hg] PA-Ventura Wyatt Work Phone: [facility] 12-19-2022 14:00-0400 Heart rate 79 /min SADAF Wyatt Work Phone: [facility] 12-19-2022 14:00-0400 Respiratory rate 16 /min SADAF Wyatt Work Phone: [facility] 12-19-2022 14:00-0400 SaO2% (BldA) [Mass fraction] 99 % PA-Ventura Wyatt Work Phone: [facility] 12-19-2022 14:00-0400 Systolic blood pressure 150 mm[Hg] PA-Ventura Wyatt Work Phone: [facility] 12-19-2022 03:30-0400 Body height 165.1 cm PA-C Andie Wyatt Work Phone: [facility] 12-19-2022 03:30-0400 Body weight 72.2 kg PA-Ventura Wyatt Work Phone: [facility] 12-18-2022 23:07-0400 Body height 165.1 cm PAZhao Wyatt Work Phone: [facility] 12-18-2022 23:07-0400 Body weight 74.2 kg PAZhao Wyatt Work Phone: [facility] 12-18-2022 23:05-0400 Body temperature 98.5 [degF] SADAF Wyatt Work Phone: [facility] 08-20-2022 14:31-0500 Body height 165.1 cm SADAF Wyatt Work Phone: [facility] 08-20-2022 14:31-0500 Body temperature 98.9 [degF] FERMIN-Ventura Wyatt Work Phone: [facility] 08-20-2022 14:31-0500 Body weight 71.55 kg SADAF Wyatt Work Phone: [facility] 08-20-2022 14:31-0500 Diastolic blood pressure 87 mm[Hg] SADAF Wyatt Work Phone: [facility] 08-20-2022 14:31-0500 Heart rate 97 /min PAZhao Wyatt Work Phone: [facility] 08-20-2022 14:31-0500 Respiratory rate 18 /min PA-C Andie Wyatt Work Phone: [facility] 08-20-2022 14:31-0500 SaO2% (BldA) [Mass fraction] 98 % PA-C Andie Wyatt Work Phone: [facility] 08-20-2022 14:31-0500 Systolic blood pressure 135 mm[Hg] PA-C Andie Wyatt Work Phone: [facility] 02-08-2022 03:06-0400 Body weight 68.[address] CUONG ORTIZ . [facility] [facility] Comment on above: Performed By: #### AFPMAT #### [facility] [address] [place] [address] Dr. Juan Antonio Ibarra 02-05-2022 18:24-0400 Body height 165.1 cm PA-C Andie Wyatt Work Phone: [facility] 02-05-2022 18:24-0400 Body temperature 98.3 [degF] PA-C Andie Wyatt Work Phone: [facility] 02-05-2022 18:24-0400 Body weight 67.9 kg PA-Ventura Wyatt Work Phone: [facility] 02-05-2022 18:24-0400 Diastolic blood pressure 68 mm[Hg] PA-Ventura Wyatt Work Phone: [facility] 02-05-2022 18:24-0400 Heart rate 92 /min PA-Ventura Wyatt Work Phone: [facility] 02-05-2022 18:24-0400 Respiratory rate 18 /min PA-Ventura Wyatt Work Phone: [facility] 02-05-2022 18:24-0400 SaO2% (BldA) [Mass fraction] 99 % PA-Ventura Wyatt Work Phone: [facility] 02-05-2022 18:24-0400 Systolic blood pressure 125 mm[Hg] SADAF Wyatt Work Phone: [facility] Encounters Encounter Date Encounter Type Care Provider Facility Start: 08-15-2023 End: 08-15-2023 ambulatory ANDIE [facility] Start: 08-15-2023 End: 08-15-2023 ambulatory CUONG DIANA Not Available Start: 07-22-2023 Documentation procedure Lucio BAKNS Work Phone: M[facility]- Medicine at [facility] Comment on above: Outgoing Ca ll Start: 07-18-2023 Clinisync Result Encounter Cuong Diana [...] gnancy Start: 07-18-2023 End: 07-18-2023 ambulatory ANDIE [facility] Start: 07-03-2023 End: 07-03-2023 ambulatory CUONG R [facility] Start: 07-03-2023 End: 07-03-2023 Telemedicine consultation with patient Rosaura Renee [facility] Work Phone: Maternal- Medicine at [facility] Comment on above: Family history of ge netic disorder (Primary Dx); Genetic testing; Fetus with trisomy 13, single gestation Start: 06-20-2023 End: 06-20-2023 ambulatory BARB KRAMER Not Available Start: 05-23-2023 End: 05-23-2023 ambulatory CUONG DIANA Not Available Start: 04-16-2023 ambulatory Cesar Clayton acility:[facility] Start: 02-11-2023 End: 02-11-2023 Emergency department patient visit Johnson Valencia Facility:[facility] Start: 02-11-2023 End: 02-11-2023 Emergency department patient visit SADAF Wyatt Work Phone: [facility] Work Phone: Start: 02-08-2023 End: 02-08-2023 Emergency department patient visit Elle Rhodes Facility:[facility] Start: 02-08-2023 End: 02-08-2023 Emergency department patient visit SADAF Wyatt Work Phone: [facility] Work Phone: Start: 12-19-2022 End: 12-19-2022 ambulatory Arden Orozco Facility:[facility] Start: 12-19-2022 End: 12-19-2022 Evaluation and management of inpatient SADAF Wyatt Work Phone: [facility] Work Phone: Start: 12-19-2022 End: 12-19-2022 observation encounter SADAF Wyatt Work Phone: [facility] Work Phone: Start: 10-24-2022 End: 10-24-[address] CUONG ORTIZ . Facility: Start: 10-23-2022 Registered Recurring SDAAF Wyatt Work Phone: [facility] Start: 08-20-2022 End: 08-20-2022 Emergency department patient visit Elle Perezaden Facility:[facility] Start: 08-20-2022 End: 08-20-2022 Emergency department patient visit SADAF Wyatt Work Phone: [facility] Work Phone: Start: 07-23-[address] CUONG ORTIZ . Facili ty:[facility]1 Start: 07-09-2022 End: 01-23-[address] CUONG ORTIZ . Facility:[facility] Start: 07-05-2022 End: 07-07-2022 Evaluation and management of inpatient DR CUONG ORTIZ . Facility:[facility] Start: 07-02-2022 End: 07-02-2022 [facility] Facility:[facility] Start: 06-28-2022 End: 06-28-[address] CUONG ORTIZ . Facility:[facility] Start: 06-21-2022 End: 06-21-2022 [facility] Facility:[facility] Start: 06-16-2022 End: 06-16-[address] CUONG ORTIZ . Facility:[facility] Start: 06-14-2022 End: 06-14-2022 ambulatory BARB KRAMER . Facility:[facility] Start: 06-14-2022 End: 06-14-[address] CUONG ORTIZ . Facility:[facility] Start: 06-07-2022 End: 06-07-[address] CUONG ORTIZ .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 and content) DATE CREATED AUTHOR 12/02/2017 [facility] DATE CREATED AUTHOR AUTHOR'S ORGANIZ ATION 12/06/2017 [facility] DATE CREATED AUTHOR AUTHOR'S ORGANIZ ATION 01/03/2018 [facility] DATE CREATED AUTHOR AUTHOR'S ORGANIZ ATION 02/07/2018 [facility] ical Center DATE CREATED AUTHOR AUTHOR'S ORGANIZ ATION 02/13/2018 [facility] DATE CREATED AUTHOR AUTHOR'S ORGANIZ ATION 10/03/2018 [facility] DATE CREATED AUTHOR AUTHOR'S ORGANIZ ATION 12/22/2018 [facility] DATE CREATED AUTHOR AUTHOR'S ORGANIZ ATION 02/15/2022 [facility] DATE CREATED AUTHOR AUTHOR'S ORGANIZ ATION 10/30/2022 [facility] DATE CREATED AUTHOR AUTHOR'S ORGANIZ ATION 07/06/[address] [facility] DATE CREATED AUTHOR AUTHOR'S ORGANIZ ATION 07/26/2023 [facility] DATE CREATED AUTHOR AUTHOR'S ORGANIZ ATION 08/17/2023 [facility] d[facility] Special[facility] DATE CREATED AUTHOR AUTHOR'S ORGANIZ ATION 08/18/2023 [facility] Care Teams (unrecognized sec tion and content) Team Status: Active Member Role Status Dates Andie Wyatt PA-C Primary Care Provider Activ e Team Status: Inactive Member Role Status Dates Andie Wyatt PA-C Primary Care Provider Activ e Elle Rhodes , FIBER GLASS WORKER-BC Emergency Provider Active Team Status: Inactive Member Role Status Dates Andie Wyatt PA-C Primary Care Provider Activ e Oscar Poe , Emergency Provider Active Arden Orozco , DO Admit Provider, Attending Provi kwabena Active Igor Ventura , CSTFA Other Provider Active Juan Krause MD Other Provider Active Ailyn Monique , CONTROLS DESIGN ENGINEER-C Other Provider Active Jacques Valerio MD Other Provider Active Edith Urias MD Other Provider Active Team Status: Active Member Role Status Dates Andie Wyatt PA-C Primary Care Provider Activ tramaine Jean MD Attending Provider Active Team Status: Active Member Role Status Dates Andie Wyatt PA-C Primary Care Provider Activ e Oscar Poe , Emergency Provider Active Arden Orozco , DO Admit Provider, Attending Provi kwabena Active Team Status: Inactive Member Role Status Dates Andie Wyatt PA-C Primary Care Provider Activ e Eleazar Hess PA-Ventura Emergency Provider Active Team Status: Inactive Member Role Status Dates Andie Wyatt PA-C Primary Care Provider Activ e Johnson Valencia , WIND COMMISSIONING TECHNICIAN Emergency Provider Active Fly Fishing Guide Relationship Specialty Start Date End Date Andie Wyatt PA-C [address] [place] [address] PCP - General Physician Gas Adjuster 03/18/18 Fly Fishing Guide Relationship Specialty Start Date End Date Unallocated, Noms Provider [address] [place] [id number] PCP - General 03/04/23 Andie Wyatt PA [address] [place] [address] Referring Physician Physical Medicine and Rehabilitation 03/04/23 Fly Fishing Guide Relationship Specialty Start Date End Date Andie Wyatt PA-C [address] [place] [address] PCP - General Physician Gas Adjuster 03/18/18 Fly Fishing Guide Relationship Specialty Start Date End Date Unallocated, Noms Provider [address] [place] [place] [id number] PCP - General 03/04/23 Andie Wyatt PA [address] [place] [address] Referring Physician Physical Medicine and Rehabilitation 03/04/23 [...] BE BASED ON THE PRIMARY CLINICAL RECORDS. [employer] provides no warranty or guarantee of the accuracy or completeness of information in this document.
[2023-09-07 13:26] LABS: Basophils Percent Auto 0.3 % (0.2-2.0); Eosinophils Absolute Auto 0.1 10^3/uL (0.0-0.7); Eosinophils Percent Auto 1.3 % (0.9-7.0); Hematocrit 32.7 % (36.0-48.0); Immature Granulocytes Abs Auto 0.08 10^3/uL (0.00-0.03); Immature Granulocytes Pct Auto 1.3 % (0.0-0.5); Lymphocytes Absolute Auto 0.9 10^3/uL (1.2-3.8); Lymphocytes Percent Auto 15.1 % (20.5-60.0); Mean Corpuscular HGB Conc 30.6 g/dL (29.9-35.2); Mean Corpuscular Hemoglobin 25.1 pg (26.7-34.0); Mean Platelet Volume 9.6 fL (9.5-13.5); Monocytes Absolute Auto 0.5 10^3/uL (0.3-0.8); Monocytes Percent Auto 7.7 % (1.7-12.0); Neutrophils Absolute Auto 4.4 10^3/uL (1.4-6.5); Neutrophils Percent Auto 74.3 % (43.0-75.0); Platelet Count 197 10^3/uL (150-450); Red Blood Count 3.99 10^6/uL (4.20-5.40); Red Cell Distribution Width 14.4 % (11.0-15.0)
[2023-09-07 13:31] LABS: Glucose 1 Hour 139 mg/dL (<130)
== END 2023-09-07 11:48 | disposition home or self-care (01) ==
LOC: LAB 11:48
PROVIDERS: PCP Physician Assistant; Visit Provider Obstetrics & Gynecology
DX: Z13.1 Encounter for screening for diabetes mellitus (principal)
CPT/HCPCS: 36415; 82950; 85025

== ENCOUNTER 2023-09-11 14:03 | Outpatient (OUT) | payer MEDICAID, SELFPAY ==
[2023-09-11 15:31] LABS: Glucose Fasting 81 mg/dL (<95)
[2023-09-11 16:10] LABS: Glucose 1 Hour 122 mg/dL (<180)
[2023-09-11 16:51] LABS: Glucose 2 Hour 97 mg/dL (<155)
[2023-09-11 17:44] LABS: Glucose 3 Hour 34 mg/dL (<140)
== END 2023-09-11 14:04 | disposition home or self-care (01) ==
LOC: LAB 14:03
PROVIDERS: PCP Physician Assistant; Visit Provider Obstetrics & Gynecology
DX: R73.09 Other abnormal glucose (principal)
CPT/HCPCS: 36415; 82951; 82952

== ENCOUNTER 2023-10-09 07:07 | Outpatient (OUT) | payer MEDICAID, SELFPAY ==
--- OUTSIDE RECORDS SUMMARY | 2023-10-09 07:11 | XMS_ITS | CCD ---
Author Organization [facility] Care Team Providers Care Macaroni Maker Name Role Phone CLARA JAMA Unavailable Unavail able SERENITY MALDONADO Unavailable Unavailable OKSANA CARO Unavailable UnavaNAGA Hull Unavailable Unavailable BARBOSA, LUKE MALIK Unavailable Unavailable PatrickSalomon terrell R Unavailable Unavailable Patrick, Salomon R Unavailable Unavailable Barbosa, Luke Unavailable Unavailable Quinebaug, Christian A Unavailable Unavailable Barbosa, Luke Unavailable Unavailable Quinebaug, Christian A Unavailable Unavailable Barbosa, Luke Unavailable Unavailable Quinebaug, Christian A Unavailable Unavailable Barbosa, Luke Unavailable Unavailable Quinebaug, Christian A Unavailable Unavailable Barbosa, Luke Unavailable Unavailable Quinebaug, Christian A Unavailable Unavailable Quinebaug, Christian A Unavailable Unavailable Barbosa, Luke Unavailable Unavailable Quinebaug, Christian A Unavailable Unavailable Barbosa, Luke Unavailable Unavailable Quinebaug, Christian A Unavailable Unavailable Quinebaug, Christian A Unavailable Unavailable Barbosa, Luke Unavailable Unavailable Barbosa, Luke Unavailable Unavailable Woo, Emiliano Unavailable Unavailable Woo, Emiliano Unavailable Unavailable Patrick, Salomon R Unavailable Unavailable Barbosa, Luke Unavailable Unavailable Barbosa, Luke Unavailable Unavailable Oscar, Jag W Unavailable Unavailable Oscar, Jag W Unavailable Unavailable Shekhar, Christian A Unavailable Unavailable Barbosa, Luke Unavailable Unavailable Quinebaug, Christian A Unavailable Unavailable Barbosa, Luke Unavailable [...] No Doctor Assigned, Nodr Unavailable Unavail able SavageGamaliel M Unavailable Unavailable Barbosa, Luke Unavailable Unavailable Hannah, Aaron A Unavailable Unavailable Hannah, Aaron A Unavailable Unavailable Patrick, Salomon R Unavailable Unavailable Patrick, Salomon R Unavailable Unavailable Barbosa, Luke Unavailable Unavailable Frank, Juanita Unavailable Unavailable Frank, Juanita Unavailable Unavailable Barbosa, Luke Unavailable Unavailable Quinebaug, Christian A Unavailable Unavailable Shekhar, Christian A Unavailable Unavailable Barbosa, Luke Unavailable Unavailable Shekhar, Christian A Unavailable Unavailable Barbosa, Luke Unavailable Unavailable Barbosa, Luke Unavailable Unavailable Rumney, Jag W Unavailable Unavailable Oscar, Jag W Unavailable Unavailable Shekhar, Christian A Unavailable Unavailable Barbosa, Luke Unavailable Unavailable Gamaliel Savage M Unavailable Unavailable Gamaliel Savage M Unavailable Unavailable Barbosa, Luke Unavailable Unavailable Quinebaug, Christian A Unavailable Unavailable Barbosa, Luke Unavailable [...] Provider SADAF Wyatt Primary Care Provider Meagan [facility] Elle E Emergency Provider DIANA .DR ACOSTA Consulting Unavailable [facility] Primary Care Unavailable DIANA ., DR ACOSTA Attending Unavailable DIANA ., DR ACOSTA Admitting Unavailable DIANA ., DR ACOSTA Admitting Unavailable DIANA ., DR ACOSTA Attending Unavailable [facility] Primary Care Unavailable DIANA ., DR ACOSTA Consulting Unavailable SUSI, DR FELECIA Chadwick Consulting Unavailable [facility] Primary Care Unavailable KARASIK ., DR CAMACHO Admitting Unavailabl e KARASIK ., DR CAMACHO Attending Unavailabl e KARASIK ., DR CAMACHO Consulting Unavailabl e WEST, DR GAMALIEL Fischer Consulting Unavailable DIANA ., DR ACOSTA Consulting Unavailable ZIEBER, DR FELECIA Chadwick Consulting Unavailable WILLIAMS ., BARB Admitting Unavailable WILLIAMS ., BARB Attending Unavailable [facility] Primary Care Unavailable WILLIAMS ., BARB Consulting Unavailable DIANA ., DR ACOSTA Admitting Unavailable DIANA ., DR ACOSTA Attending Unavailable [facility] Primary Care Unavailable DIANA ., DR ACOSTA Consulting Unavailable [facility] Primary Care Unavailable KARASIK ., DR CAMACHO Admitting Unavailabl e KARASIK ., DR CAMACHO Attending Unavailabl e KARASIK ., DR CAMACHO Consulting Unavailabl e DIANA ., DR ACOSTA Admitting Unavailable DIANA ., DR ACOSTA Attending Unavailable [facility] Primary Care Unavailable DIANA ., DR ACOSTA Consulting Unavailable ZIEBER, DR FELECIA Chadwick Consulting Unavailable DIANA ., DR ACOSTA Admitting Unavailable DIANA ., DR ACOSTA Attending Unavailable [facility] Primary Care Unavailable DIANA ., DR ACOSTA Consulting Unavailable ZIEBER, DR FELECIA Chadwick Consulting Unavailable PRATIMA, BRODIE Consulting Unavailable DIANA ., DR ACOSTA Consulting Unavailable [facility] Primary Care Unavailable DIANA ., DR ACOSTA Attending Unavailable DIANA ., DR ACOSTA Admitting Unavailable ZIEBER, DR FELECIA Chadwick Consulting Unavailable DIANA ., DR ACOSTA Consulting Unavailable [facility] Primary Care Unavailable DIANA ., DR ACOSTA Attending Unavailable DIANA ., DR ACOSTA Admitting Unavailable DIANA ., DR ACOSTA Admitting Unavailable DIANA ., DR ACOSTA Attending Unavailable [facility] Primary Care Unavailable DIANA ., DR ACOSTA Consulting Unavailable ZIEBER, DR FELECIA Chadwick Consulting Unavailable DIANA ., DR ACOSTA Admitting Unavailable DIANA ., DR ACOSTA Attending Unavailable [facility] Primary Care Unavailable WEST, DR GAMALIEL Fischer Consulting Unavailable DIANA ., DR ACOSTA Consulting Unavailable [facility] Primary Care Unavailable KARASIK ., DR CAMACHO Admitting Unavailabl e KARASIK ., DR CAMACHO Attending Unavailabl e KARASIK ., DR CAMACHO Consulting Unavailabl e DIANA ., DR ACOSTA Consulting Unavailable ZIEBER, DR FELECIA Chadwick Consulting Unavailable DIANA ., DR ACOSTA Admitting Unavailable DIANA ., DR ACOSTA Attending Unavailable [facility] Primary Care Unavailable WEST, DR GAMALIEL Fischer Consulting Unavailable DIANA ., DR ACOSTA Consulting Unavailable DIANA ., DR ACOSTA Admitting Unavailable DIANA ., DR ACOSTA Attending Unavailable [facility] Primary Care Unavailable DIANA ., DR ACOSTA Consulting Unavailable DIANA ., DR ACOSTA Admitting Unavailable DIANA ., DR ACOSTA Attending Unavailable [facility] Primary Care Unavailable DIANA ., DR ACOSTA Consulting Unavailable ZIEBER, DR FELECIA Chadwick Consulting Unavailable DIANA ., DR ACOSTA Admitting Unavailable DIANA ., DR ACOSTA Attending Unavailable [facility] Primary Care Unavailable DIANA ., DR ACOSTA Consulting Unavailable DIANA ., DR ACOSTA Admitting Unavailable DIANA ., DR ACOSTA Attending Unavailable [facility] Primary Care Unavailable DIANA ., DR ACOSTA Consulting Unavailable [facility] Primary Care Unavailable DIANA ., DR ACOSTA Attending Unavailable DIANA ., DR ACOSTA Admitting Unavailable DIANA ., DR ACOSTA Admitting Unavailable DIANA ., DR ACOSTA Attending Unavailable [facility] Primary Care Unavailable DIANA ., DR ACOSTA Admitting Unavailable DIANA ., DR ACOSTA Attending Unavailable [facility] Primary Care Unavailable KARASIK ., DR CAMACHO Consulting Unavailabl e DIANA ., DR ACOSTA Consulting Unavailable DAINA ., DR ACOSTA Procedure Practitioner Unavail able ORLANDO PRASAD Consulting Unavailable JACQUES FLETCHER Consulting Unavailable DIANA ., DR ACOSTA Admitting Unavailable DIANA ., DR ACOSTA Attending Unavailable [facility] Primary Care Unavailable KARASIK ., DR CAMACHO Consulting Unavailabl e ZIEBER, DR FELECIA Chadwick Consulting Unavailable SADAF Wyatt Primary Care Provider MD Farhan Jean Attending Provider Poe, DO Oscar Emergency Provider Itzkowitz, DO Arden Admit Provider [phone] Itzkocece, DO Arden Attending Provider FRED Ventura Other Provider UnavailMD Juan Edwards Other Provider BRISA MoniqueC Ailyn Other Provider [phone] MD Jacques Valerio Other Provider MD Edith Urias Other Provider SADAF Wyatt Primary Care Provider Bullimaden, ESL INSTRUCTIONAL ASSISTANT-BC Elle E Emergency Provider BRANNON Valencia Emergency Provider [phone] Andie Wyatt PA-C Primary Care Provider CUONG ORTIZ Referring Unavailable ANDIE WYATT Primary Care Unavailable Andie Johnson Unavailable Unallocated, Noms Provider Primary Care Provider Cesar Jean Admitting Unavailab Cesar Mckay Attending Unavailab le Andie Wyatt Primary Care Unavailable Itzdevorah, Arden Admitting Unavailable Campbell Orozcoic Attending Unavailable Andie Wyatt Primary Care Unavailable Igor Ventura Consulting Unavailable Juan Krause Consulting Unavailable Ailyn Monique Consulting Unavailable Jacques Valerio Consulting Unavailable Edith Urias Consulting Unavailable Bullimore, Elle E Admitting Unavailable Bullimaden, Elle E Attending Unavailable Andie Wyatt Primary Care Unavailable Johnson Valencia Admitting Unavailable Johnson Valencia Attending Unavailable Andie Wyatt Primary Care Unavailable Bullimore, Elle E Admitting Unavailable Bullimore, Elle E Attending Unavailable Andie Wyatt Primary Care Unavailable ANDIE WYATT Referring Unavailable ANDIE WYATT Primary Care Unavailable ANDIE WYATT Referring Unavailable ANDIE WYATT Primary Care Unavailable BARB KRAMER Attending Unavailable CUONG ORTIZ Attending Unavailable CUONG ORTIZ Attending Unavailable CUONG ORTIZ Attending Unavailable CUONG ORTIZ Attending Unavailable CUONG ORTIZ Attending Unavailable Allergies Allergy Classification Reported Allergen(s) Allergy Type Date of Onset Reaction(s) Facility (2 sources) Bee; Translations: [BEES] Propensity to adverse reactions (disorder) 8 [facility] Repository (2 sources) Mold spore; Translations: [MOLD SPORES] Propensity to adverse reactions (disorder) 8 [facility] Repository (18 sources) Penicillins; Translations: [PENICILLINS] Propensity to adverse reactions to drug (disorder) 4 [facility] Repository (12 sources) Sulfonamides (Antibiotic); Translations: [SULFA (SULFONAMIDE ANTIBIOTICS)] Propensity to adverse reactions to drug (disorder) 8 [facility] Repository (1 source) Bee/Wasp/Ant venom; Translations: [Bee Stings] Propensity to adverse reactions to drug (disorder) [facility] Repository (1 source) mold extract; Translations: [Mold] Drug Allergy [facility] Repository (1 source) Sulfonamides (Antibiotic); Translations: [sulfa drugs] Propensity to adverse reactions to drug (disorder) [facility] Repository (4 sources) bee venom; Translations: [BEE VENOM] Propensity to adverse reactions to drug (disorder) 8 [facility] Repository (1 source) OTHER; Translations: [OTHER] Propensity to adverse reactions to food (disorder) 8 [facility] Repository (1 source) MOLDS & SMUTS; Translations: [MOLDS & SMUTS] Propensity to adverse reactions to drug (disorder) 8 [facility] Repository (4 sources) SULFA ANTIBIOTICS; Translations: [SULFA ANTIBIOTICS] Propensity to adverse reactions to drug (disorder) 8 [facility] Repository (1 source) Sulfonamides (Antibiotic) Drug allergy (disorder) 4 [facility] Repository (4 sources) Bee Venom Protein (Honey Bee); Translations: [BEE VENOM PROTEIN (HONEY BEE)] Propensity to adverse reactions to drug 2 [facility] [employer] (1 source) Penicillin Drug Allergy 2 [facility] Repository (1 source) Sulfacetamide Drug Allergy 2 [facility] Repository Medications Current Medications Medication Drug Class(es) [...] mouth in the morning. 0 02/27/2023 Active Crestone (No Known Home Meds) (2 sources) Start: 12-18-2022 Crestone (No Known Home Meds) Active December 18, [...] (-1 ORAL) Take by mouth. 0 Active Toachopr-Bnb-Kh-FA (, w/Iron & FA,) 27-0.8 MG tablet (3 sources) Mhcarnbu-Nzu-Qe-FA (, w/Iron & FA,) 27-0.8 MG tablet 1 (one) time each day at the same time. 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 [facility] AFP VALUE 70.2 ng/mL . [facility] COMMENT: Comment . [facility] Comment on above: Alma Chaudhary , Ph.D., [facility] Director References: Available Upon Request. Multiples Of Median Cutoffs For AFP Elevations Briscoe 2.5 Black 2.8 IDD 2.0 Twins 4.5 Abbreviation Definitions IDD - Insulin Dep Diabetes OSBR - Open Spina Bifida Risk For further inquiries contact [facility] at [phone]. This test was developed and its performance characteristics determined by [employer]. It has not been cleared or approved by the Food and Drug Administration. Performed at: [facility] [place], [place] [id number] Gear Shaper: Oz Harkins [facility], Phone: [phone] GEST. AGE ON COLLECTION DATE 20.4 . weeks [facility] GESTAT. AGE BASED ON LMP . [facility] Comment on above: Recalculations are n ot recommended when gestational dating by LMP and ultrasound are within 10 days. INSULIN DEP DIABETES No . [facility] INTERPRETATION Comment . [facility] Comment on above: Interpretation: Scre en [...] Customer Services to discuss available options. The [employer] recommends amniocentesis be offered to women age 35 and older. [age] [facility] MULTIPLE GESTATION No . [facility] OSBR RISK 1 IN 6300 . [facility] RACE . [facility] RESULTS Report . [facility] TEST RESULTS: Negative . [facility] WEIGHT 159 . lbs [facility] N N LMP [id number] 3 16 N 1 Y 159 N N N N White/ [facility] Urinalysis macro (dipstick) panel (U)on 07-18-2023 Bilirubin, UA Negative Negative - 4(70) +++ mg/dL [facility] Blood, UA Negative Negative - 50 Rakesh/mcL [facility] Clarity, UA Clear [facility] Color, UA Yellow [facility] Glucose, UA Negative Negative - 1999(110) ++++ mg/dL [facility] Interpretation and review of laboratory results Normal [facility] Ketones, UA Negative Negative - 160(16) ++++ mg/dL [facility] Leukocytes, UA Negative Negative - 500+++ Matti/mcL [facility] Nitrite, UA Negative Negative - Positive [facility] pH, UA 5.5 5 - 9 [facility] Protein, UA Negative Negative - 1999(20) ++++ mg/dL [facility] Spec Grav, UA 1.020 1 - 1.03 [facility] Urobilinogen, UA 1.0 0.2 - 12 mg/dL [facility] ABO/Rh Retypeon 12-19-2022 ABO/RH Recheck Result Positive Normal [facility] Comment on above: Result Comment: PERF ORMED BY: [facility] [address] [place] [place] [address] PATHOLOGIST LOCKSTITCH POCKET SETTER MALVIN MEDLEY M.D. Amphetamine Screen Ql (U)Ord ered By: Oscar Poe on 12-19-2022 Amphetamines Ql (U) Negative Negative [facility] Amylaseon 12-19-2022 Amylase [Catalytic activity/Vol] 35 U/L Normal 29-103 [facility] Comment on above: Performed By: #### C BC, CREAT, GLU, LYTES, AST, ETOH, BARB, LIPASE, CK, BUN ####[facility] [address] Aspartate Amino Transferaseo n 12-19-2022 AST [Catalytic activity/Vol] 26 U/L Normal 13-39 [facility] Comment on above: Performed By: #### C BC, CREAT, GLU, LYTES, AST, ETOH, BARB, LIPASE, CK, BUN ####[facility] Automated erythrocytes count in urine sediment (number/area)Ordered By: Oscar Poe on 12-19-2022 RBC Auto (Urine sed) [#/Area] 5-9 [HPF] 0-4 [facility] Automated leukocytes count i n urine sediment (number/area)Ordered By: Oscar Poe on 12-19-2022 WBC Auto (Urine sed) [#/Area] 10-19 [HPF] 0-4 [facility] Barbiturates [Presence] in U rine by Screen methodOrdered By: Oscar Poe on 12-19-2022 Barbiturates Screen Ql (U) Negative Negative [facility] Benzodiazepines Screen Ql (U )Ordered By: Oscar Poe on 12-19-2022 Benzodiazepines Ql (U) Negative Negative [facility] Benzoylecgonine [Presence] i n Urine by Screen methodOrdered By: Oscar Poe on 12-19-2022 Benzoylecgonine Screen Ql (U) Negative Negative [facility] Bilirubin Test strip Ql (U)O rdered By: Oscar Poe on 12-19-2022 Bilirubin Ql (U) Negative Negative [facility] Blood Urea Nitrogenon 2022 Urea nitrogen [Mass/Vol] 21 mg/dL Normal 7-25 [facility] Comment on above: Performed By: #### C BC, CREAT, GLU, LYTES, AST, ETOH, BARB, LIPASE, CK, BUN ####[facility] cervical spine wo conon 0 12-19-2022 CT cervical spine wo con [facility] [address] [place] [address] [place] [address] CT Scan Report Signed Patient: Zuleika Wyatt MR#: [id number] : 1990 Acct:[id number] Age/Sex: 32 / F ADM Date: 12/19/22 Loc: Room: 8D4909-3 Type: ADM INOo Attending Dr: Arden Orozco DO Copies to: DO Arden Jefferson DO Ordering Provider: Oscar Poe DO Date of Service: 12/18/22 CT/CT cervical spine wo con: f ([id number]) CT/CT head/brain wo con: f CT BRAIN [...] Pimentel Jr., D.O.12/19/2022 10:25 AM Dictation Location: [place] [address] Transcribed By: DONTE 12/19/22 1025 Dictated By: Rah Pimentel Jr, DO 12/19/22 1016 Signed By: 12/19/22 [address] [facility] [address] head/brain wo conon 12-19 CT head/brain wo [facility] [address] [place] [address] [place] [address] CT Scan Report Signed Patient: Zuleika Wyatt MR#: [id number] : 1990 Acct:[id number] Age/Sex: 32 / F ADM Date: 12/19/22 Loc: Room: [address] [place] [address] Type: DIS INOo Attending Dr: Arden Orozco [...] Pimentel Jr., D.O.12/19/2022 3:28 PM Dictation Location: [place] [address] Transcribed By: [facility] 12/19/22 1528 Dictated By: Rah Pimentel Jr, DO 12/19/22 1524 Signed By: 12/19/22 [address] [facility] [address] lumbar spine wo conon CT lumbar spine wo con [facility] [place] [place] [address] CT Scan Report Signed Patient: Zuleika Wyatt MR#: [id number] : 1990 Acct:[id number] Age/Sex: 32 / F ADM Date: 12/19/22 Loc: Room: [address] [place] [address] Type: ADM INOo Attending Dr: Arden Orozco DO Copies to: DO Arden Jefferson DO Ordering Provider: Oscar Poe DO Date of Service: 12/18/22 CT/CT thoracic spine wo con: f ([id number]) CT/CT lumbar spine wo con: f CT [...] narrowing or hypertrophy. The ribs within the wgcik-gj-ggcu appear intact. No paraspinal soft tissue abnormalities are present. The ascending aorta is mildly ectatic. The heart is not fully imaged though it is at least borderline prominent. There is no consolidation, pleural effusion or pneumothorax within the bvhct-au-dreq. No lumbar compression fractures are identified. There [...] The intra-abdominal and pelvic structures within the mqlsh-sz-mgnw show no contributory findings. CT/CT thoracic spine wo con IMPRESSION: MILD THORACIC SCOLIOSIS. NO ACUTE BONY INJURY INVOLVING THE THORACIC OR LUMBAR SPINE. Impression dictated by: Adela Mahan M.D.12/19/2022 10:36 AM Dictation Location: [place] [address] Transcribed By: [facility] 12/19/22 1036 Dictated By: Adela Mahan MD 12/19/22 1026 Signed By: 12/19/22 1036 Normal [facility] Cannabinoids [Presence] in U rine by Screen methodOrdered By: Oscar Poe on 12-19-2022 Cannabinoids Screen Ql (U) Positive Negative [facility] Comment on above: These are unconfirme d results and should not be used for legal purposes. Drug Cut-Off Concentration: AMPH 1000 ng/mL SEEMA 200 ng/mL LAZ 200 ng/mL COCM 300 ng/mL OP 300 ng/mL PCP 25 ng/mL THC 20 ng/mL Color Auto (U)Ordered By: Fernando Poe on 12-19-2022 Color (U) Yellow Yellow [facility] Complete Blood Count Auto Di ffon 12-19-2022 Basophils (Bld) [#/Vol] 0.1 10*3/uL Normal 0.0-0.2 [facility] Comment on above: Result Comment: PERF ORMED BY: [facility] [address] [place], [place] [facility] [phone] PATHOLOGIST LOCKSTITCH POCKET SETTER MALVIN MEDLEY M.D. Performed By: #### C BC, CREAT, GLU, LYTES, AST, ETOH, BARB, LIPASE, CK, BUN ####[address] Basophils/100 WBC (Bld) 0.7 % Normal . [facility] Comment on above: Performed By: #### C BC, CREAT, GLU, LYTES, AST, ETOH, BARB, LIPASE, CK, BUN ####[address] Eosinophils (Bld) [#/Vol] 0.0 10*3/uL Normal 0.0-0.45 [facility] Comment on above: Performed By: #### C BC, CREAT, GLU, LYTES, AST, ETOH, BARB, LIPASE, CK, BUN ####[address] Eosinophils/100 WBC (Bld) 0.2 % Normal . [facility] Comment on above: Performed By: #### C BC, CREAT, GLU, LYTES, AST, ETOH, BARB, LIPASE, CK, BUN ####[address] Erythrocyte distribution width (RBC) [Ratio] 14.4 % Normal 11.9-15.3 [facility] Comment on above: Performed By: #### C BC, CREAT, GLU, LYTES, AST, ETOH, BARB, LIPASE, CK, BUN ####[address] Hematocrit (Bld) [Volume fraction] 36.2 % Normal 34.0-46.4 [facility] Comment on above: Performed By: #### C BC, CREAT, GLU, LYTES, AST, ETOH, BARB, LIPASE, CK, BUN ####[address] Hemoglobin (Bld) [Mass/Vol] 11.9 g/dL Normal 11.8-15.4 [facility] Comment on above: Performed By: #### C BC, CREAT, GLU, LYTES, AST, ETOH, BARB, LIPASE, CK, BUN ####[address] Lymphocytes (Bld) [#/Vol] 2.2 10*3/uL Normal 1.00-4.8 [facility] Comment on above: Performed By: #### C BC, CREAT, GLU, LYTES, AST, ETOH, BARB, LIPASE, CK, BUN ####[address] Lymphocytes/100 WBC (Bld) 21.8 % Normal . [facility] Comment on above: Performed By: #### C BC, CREAT, GLU, LYTES, AST, ETOH, BARB, LIPASE, CK, BUN ####[address] MCH (RBC) [Entitic mass] 26.9 pg Normal 24.7-34.3 [facility] Comment on above: Performed By: #### C BC, CREAT, GLU, LYTES, AST, ETOH, BARB, LIPASE, CK, BUN ####[address] MCV (RBC) [Entitic vol] 82.1 fL Normal 80-100 [facility] Comment on above: Performed By: #### C BC, CREAT, GLU, LYTES, AST, ETOH, BARB, LIPASE, CK, BUN ####[address] Mean Corpuscular HGB Conc 32.8 g/dL Normal 32.0-35.0 [facility] Comment on above: Performed By: #### C BC, CREAT, GLU, LYTES, AST, ETOH, BARB, LIPASE, CK, BUN ####[address] Monocytes (Bld) [#/Vol] 0.8 10*3/uL Normal 0.0-0.8 [facility] Comment on above: Performed By: #### C BC, CREAT, GLU, LYTES, AST, ETOH, BARB, LIPASE, CK, BUN ####[address] Monocytes/100 WBC (Bld) 22.19 % High 0.00-20.00 [facility] Comment on above: Result Comment: For adults in ED, MDW > 20.0 may be associated with a higher risk of sepsis during the first 12 hrs of hospital admission Performed By: #### C BC, CREAT, GLU, LYTES, AST, ETOH, BARB, LIPASE, CK, BUN ####[address] Monocytes/100 WBC (Bld) 7.4 % Normal . [facility] Comment on above: Performed By: #### C BC, CREAT, GLU, LYTES, AST, ETOH, BARB, LIPASE, CK, BUN ####[address] Neutrophils (Bld) [#/Vol] 7.2 10*3/uL Normal 1.8-7.7 [facility] Comment on above: Performed By: #### C BC, CREAT, GLU, LYTES, AST, ETOH, BARB, LIPASE, CK, BUN ####[address] Neutrophils/100 WBC (Bld) 69.9 % Normal . [facility] Comment on above: Performed By: #### C BC, CREAT, GLU, LYTES, AST, ETOH, BARB, LIPASE, CK, BUN ####[address] NRBC% 0.1 /100{WBC} Normal 0-0.5 [facility] Comment on above: Performed By: #### C BC, CREAT, GLU, LYTES, AST, ETOH, BARB, LIPASE, CK, BUN ####[address] Platelet mean volume (Bld) [Entitic vol] 8.1 fL Normal 6.3-10.7 [facility] Comment on above: Performed By: #### C BC, CREAT, GLU, LYTES, AST, ETOH, BARB, LIPASE, CK, BUN ####[address] Platelets (Bld) [#/Vol] 223 10*3/uL Normal 150-450 [facility] Comment on above: Performed By: #### C BC, CREAT, GLU, LYTES, AST, ETOH, BARB, LIPASE, CK, BUN ####[address] RBC (Bld) [#/Vol] 4.42 10*6/uL Normal 3.60-5.00 [facility] Comment on above: Performed By: #### C BC, CREAT, GLU, LYTES, AST, ETOH, BARB, LIPASE, CK, BUN ####[address] WBC (Bld) [#/Vol] 10.3 10*3/uL Normal 3.8-11.6 [facility] Comment on above: Performed By: #### C BC, CREAT, GLU, LYTES, AST, ETOH, BARB, LIPASE, CK, BUN ####[address] Creatine Kinaseon 12-19-2022 CK [Catalytic activity/Vol] 50 U/L Normal 30-223 [facility] Comment on above: Result Comment: PERF ORMED BY: [facility] [address] [place] [address] PATHOLOGIST LOCKSTITCH POCKET SETTER MALVIN MEDLEY M.D. Performed By: #### C BC, CREAT, GLU, LYTES, AST, ETOH, BARB, LIPASE, CK, BUN ####[place] [id number] [facility] Creatinineon 12-19-2022 Creatinine [Mass/Vol] 0.84 mg/dL Normal 0.60-1.20 [facility] Comment on above: Performed By: #### C BC, CREAT, GLU, LYTES, AST, ETOH, BARB, LIPASE, CK, BUN ####[address] [place] [address] [place] Creatinine [facility]r [facility] 98.76 [facility] Comment on above: Performed By: #### C BC, CREAT, GLU, LYTES, AST, ETOH, BARB, LIPASE, CK, BUN ####[facility] [place] [address] [place] GFR/1.73 sq M.predicted MDRD (S/P/Bld) [Vol rate/Area] mL/min/{1.73_m2} [facility] Comment on above: Performed By: #### C BC, CREAT, GLU, LYTES, AST, ETOH, BARB, LIPASE, CK, BUN ####[facility] [place] [address] [place] Dipstick and Microscopicon 0 12-19-2022 Appearance (U) Clear Normal Clear [facility] Comment on above: Order Comment: Name Collection Type:: Clean-Voided Midstream Performed By: #### U RDS, UHCG, CUU, ADDONUAPLUS #### [facility] [address] [place] [address] [place] Bacteria,Urine None Seen Normal None Seen [facility] Comment on above: Order Comment: Name Collection Type:: Clean-Voided Midstream Performed By: #### U RDS, UHCG, CUU, ADDONUAPLUS #### [facility] [address] [place] [address] [place] Bilirubin,Urine Negative Normal Negative [facility] Comment on above: Order Comment: Name Collection Type:: Clean-Voided Midstream Performed By: #### U RDS, UHCG, CUU, ADDONUAPLUS #### [facility] [address] [place] [address] [place] Color (U) Yellow Normal Yellow [facility] Comment on above: Order Comment: Name Collection Type:: Clean-Voided Midstream Performed By: #### U RDS, UHCG, CUU, ADDONUAPLUS #### [facility] [address] [place] [address] [place] Glucose Ql (U) Normal Normal Normal [facility] Comment on above: Order Comment: Name Collection Type:: Clean-Voided Midstream Performed By: #### U RDS, UHCG, CUU, ADDONUAPLUS #### [facility] [address] [place] [address] Hyaline Casts,Urine 0-8 Normal 0-8 [facility] Comment on above: Order Comment: Name Collection Type:: Clean-Voided Midstream Performed By: #### U RDS, UHCG, CUU, ADDONUAPLUS #### [address] Ketones Ql (U) 1+ High Negative [facility] Comment on above: Order Comment: Name Collection Type:: Clean-Voided Midstream Performed By: #### U RDS, UHCG, CUU, ADDONUAPLUS #### [address] Leukocyte esterase Test strip Ql (U) 2+ High Negative [facility] Comment on above: Order Comment: Name Collection Type:: Clean-Voided Midstream Performed By: #### U RDS, UHCG, CUU, ADDONUAPLUS #### [facility] [address] [place] [address] Nitrite,Urine Negative Normal Negative [facility] Comment on above: Order Comment: Name Collection Type:: Clean-Voided Midstream Performed By: #### U RDS, UHCG, CUU, ADDONUAPLUS #### [facility] [address] [place] [address] [place] Occult Blood,Urine Negative Normal Negative [facility] Comment on above: Order Comment: Name Collection Type:: Clean-Voided Midstream Performed By: #### U RDS, UHCG, CUU, ADDONUAPLUS #### [facility] [address] [place] [address] pH (U) 5.5 [pH] Normal 5.0-9.0 [facility] Comment on above: Order Comment: Name Collection Type:: Clean-Voided Midstream Performed By: #### U RDS, UHCG, CUU, ADDONUAPLUS #### [address] [place] [address] [place] Protein,Urine Negative Normal Negative [facility] Comment on above: Order Comment: Name Collection Type:: Clean-Voided Midstream Performed By: #### U RDS, UHCG, CUU, ADDONUAPLUS #### [place] [address] [place] RBC,Urine 5-9 High 0-4 [facility] Comment on above: Order Comment: Name Collection Type:: Clean-Voided Midstream Performed By: #### U RDS, UHCG, CUU, ADDONUAPLUS #### [address] Specificy Lamar,Urine 1.025 Normal 1.001-1.03 0 [facility] Comment on above: Order Comment: Name Collection Type:: Clean-Voided Midstream Performed By: #### U RDS, UHCG, CUU, ADDONUAPLUS #### [facility] [address] [place] [address] Squamous Epithelial Cell,Urine 3-4 High 0-2 [facility] Comment on above: Order Comment: Name Collection Type:: Clean-Voided Midstream Performed By: #### U RDS, UHCG, CUU, ADDONUAPLUS #### [facility] [address] [place] [address] Urobilinogen,Urine Normal Normal Normal [facility] Comment on above: Order Comment: Name Collection Type:: Clean-Voided Midstream Performed By: #### U RDS, UHCG, CUU, ADDONUAPLUS #### [facility] [address] [place] [address] [place] WBC,Urine 10-19 High 0-4 [facility] Comment on above: Order Comment: Name Collection Type:: Clean-Voided Midstream Performed By: #### U RDS, UHCG, CUU, ADDONUAPLUS #### [place] [address] [place] Drug Screen,Urineon 12-20-19 Amphetamine Screen,Urine Negative Normal Negative [facility] Comment on above: Performed By: #### U RDS, UHCG, CUU, ADDONUAPLUS #### [address] Barbiturate Screen,Urine Negative Normal Negative [facility] Comment on above: Performed By: #### U RDS, UHCG, CUU, ADDONUAPLUS #### [address] Benzodiazepines Screen,Urine Negative Normal Negative [facility] Comment on above: Performed By: #### U RDS, UHCG, CUU, ADDONUAPLUS #### [address] Cannabinoid Screen,Urine Positive High Negative [facility] Comment on above: Result Comment: Thes e are unconfirmed results and should not be used for legal purposes. Drug Cut-Off Concentration: AMPH 1000 ng/mL SEEMA 200 ng/mL LAZ 200 ng/mL COCM 300 ng/mL OP 300 ng/mL PCP 25 ng/mL THC 20 ng/mL PERFORMED BY: [place] [address] PATHOLOGIST LOCKSTITCH POCKET SETTER MALVIN MEDLEY M.D. Performed By: #### U RDS, UHCG, CUU, ADDONUAPLUS #### [address] Cocaine Screen,Urine Negative Normal Negative [facility] Comment on above: Performed By: #### U RDS, UHCG, CUU, ADDONUAPLUS #### [place] [address] [place] Opiate Screen,Urine Negative Normal Negative [facility] Comment on above: Performed By: #### U RDS, UHCG, CUU, ADDONUAPLUS #### [place] [address] [place] Phencyclidine Screen,Urine Negative Normal Negative [facility] Comment on above: Performed By: #### U RDS, UHCG, CUU, ADDONUAPLUS #### [address] ECG 12 lead ECGon 12-19-2022 ECG 12 lead ECG [facility] [place] [address] [place] [address] Electrocardiograph Report Signed Patient: Zuleika Wyatt MR#: [id number] : 1990 Acct:[id number] Age/Sex: 32 / F ADM Date: 12/19/22 Loc: Room: [address] [place] [address] Type: DIS INOo Attending Dr: Arden Orozco [...] ECGs available Confirmed by OSCAR POE DO ([id number]) on 12/19/2022 10:18:39 PM Referred By: Electronically Signed By:OSCAR POE DO Transcribed By: MUS Signed By Oscar Poe DO 12/19 Normal [facility] Electrolyteson 12-19-2022 Anion gap [Moles/Vol] 14.5 mmol/L Normal 6.0-15.0 [facility] Comment on above: Performed By: #### C BC, CREAT, GLU, LYTES, AST, ETOH, BARB, LIPASE, CK, BUN ####[facility] Chloride [Moles/Vol] 105 mmol/L Normal 98-107 [facility] Comment on above: Performed By: #### C BC, CREAT, GLU, LYTES, AST, ETOH, BARB, LIPASE, CK, BUN ####[facility] [place] [id number] [facility] CO2 [Moles/Vol] 20.0 mmol/L Low 21.0-31.0 [facility] Comment on above: Performed By: #### C BC, CREAT, GLU, LYTES, AST, ETOH, BARB, LIPASE, CK, BUN ####[place] [id number] Potassium [Moles/Vol] 3.5 mmol/L Normal 3.5-5.1 [facility] Comment on above: Performed By: #### C BC, CREAT, GLU, LYTES, AST, ETOH, BARB, LIPASE, CK, BUN ####[address] Sodium [Moles/Vol] 136 mmol/L Normal 136-[address] [facility] Comment on above: Performed By: #### C BC, CREAT, GLU, LYTES, AST, ETOH, BARB, LIPASE, CK, BUN ####[address] Ethyl Alcohol Profileon 07 Ethanol [Mass/Vol] mg/dL Normal [facility] Comment on above: Performed By: #### C BC, CREAT, GLU, LYTES, AST, ETOH, BARB, LIPASE, CK, BUN ####[address] Percent Ethanol Not performed Normal [facility] Comment on above: Result Comment: PERF ORMED BY: [facility] [address] [place] [address] PATHOLOGIST LOCKSTITCH POCKET SETTER MALVIN MEDLEY M.D. Performed By: #### C BC, CREAT, GLU, LYTES, AST, ETOH, BARB, LIPASE, CK, BUN ####[place] [id number] [facility] Glucoseon 12-19-2022 Glucose [Mass/Vol] 93 mg/dL Normal 70-[address] [facility] Comment on above: Result Comment: [place] Glucose Reference Range is dependent on time and content of last meal. Glucose of more than 200 mg/dL in a nonstressed, ambulatory subject supports the diagnosis of Diabetes Mellitus. ADA recommended reference range Performed By: #### C BC, CREAT, GLU, LYTES, AST, ETOH, BARB, LIPASE, CK, BUN ####[place] [address] HCG ( test) IA.rapi d Ql (U)Ordered By: Oscar Poe on 12-19-2022 HCG ( test) Ql (U) Negative [facility] HCG,Qualitative Serumon 07-0 HCG,Qualitative Serum Negative Normal [facility] Comment on above: Result Comment: PERF ORMED BY: [place] [address] PATHOLOGIST LOCKSTITCH POCKET SETTER MALVIN MEDLEY M.D. Performed By: #### H CGQUAL #### [address] HCG,Urineon 12-19-2022 Beta HCG ( test) Ql (U) Negative Normal [facility] Comment on above: Order Comment: Name Collection Type:: Clean-Voided Midstream Result Comment: PERF ORMED BY: [place] [address] PATHOLOGIST LOCKSTITCH POCKET SETTER MALVIN MEDLEY M.D. Performed By: #### U RDS, UHCG, CUU, ADDONUAPLUS #### [facility] [address] [place] [address] Ketones Auto test strip (U) [Mass/Vol]Ordered By: Oscar Poe on 12-19-2022 Ketones (U) [Mass/Vol] 1+ Negative [facility] Laboratory - UrinalysisOrder ed By: Oscar Poe on 12-19-2022 Hyaline casts LM Ql (Urine sed) 0-8 [LPF] 0-8 [facility] Lipaseon 12-19-2022 Lipase [Catalytic activity/Vol] 29.0 U/L Normal 11.0-82.0 [facility] Comment on above: Result Comment: PERF ORMED BY: [facility] [address] [place] [address] PATHOLOGIST LOCKSTITCH POCKET SETTER MALVIN MEDLEY M.D. Performed By: #### C BC, CREAT, GLU, LYTES, AST, ETOH, BARB, LIPASE, CK, BUN ####[address] [place] [address] [facility] Nitrite Test strip Ql (U)Ord ered By: Oscar Poe on 12-19-2022 Nitrite Ql (U) Negative Negative [facility] Opiates [Presence] in Urine by Screen methodOrdered By: Oscar Poe on 12-19-2022 Opiates Screen Ql (U) Negative Negative [facility] Phencyclidine Screen Ql (U)O rdered By: Oscar Poe on 12-19-2022 Phencyclidine Ql (U) Negative Negative [facility] Protein Auto test strip (U) [Mass/Vol]Ordered By: Oscar Poe on 12-19-2022 Protein (U) [Mass/Vol] Negative Negative [facility] Specific gravity Auto test s trip (U) [Rel density]Ordered By: Oscar Poe on 12-19-2022 Specific gravity (U) [Rel density] 1.025 1.001-1.03 0 [facility] Squamous epithelial cells de tection in urine sediment by light microscopyOrdered By: Oscar Poe on 12-19-2022 Epithelial cells.squamous LM Ql (Urine sed) 3-4 [HPF] 0-2 [facility] Type and Screenon 12-19-2022 ABO and Rh group Nom (Bld) Blood group A Rh(D) positive Normal [facility] Comment on above: Result Comment: PERF ORMED BY: [facility] [address] [place] [address] PATHOLOGIST LOCKSTITCH POCKET SETTER MALVIN MEDLEY M.D. Urine Cultureon 12-19-2022 Bacteria identified Cx Nom (U) >100,000 colonies/ml mixed bacterial skin contaminants 2 Days PERFORMED BY: [facility] [address] [place] [address] PATHOLOGIST LOCKSTITCH POCKET SETTER MALVIN MEDLEY M.D. [facility] Comment on above: Performed By: #### U RDS, UHCG, CUU, ADDONUAPLUS ####[facility] [id number] [place], [place] [address] [facility] Urine bacteria detection by automated methodOrdered By: Oscar Poe on 12-19-2022 Bacteria Auto Ql (U) None seen None Seen [facility] Urine clarity by refractomet ry automatedOrdered By: Oscar Poe on 12-19-2022 Clarity Refractometry automated (U) Clear Clear [facility] Urine culture routineOrdered By: Oscar Poe on 12-19-2022 Bacteria identified Cx Nom (U) 2 Days [facility] Urine glucose measurement by automated test strip (mass/volume)Ordered By: Oscar Poe on 12-19-2022 Glucose Auto test strip (U) [Mass/Vol] Normal mg/dL Normal [facility] Urine hemoglobin detection b y automated test stripOrdered By: Oscar Poe on 12-19-2022 Hemoglobin Auto test strip Ql (U) Negative Negative [facility] Urine leukocyte esterase det ection by automated test stripOrdered By: Oscar Poe on 12-19-2022 Leukocyte esterase Auto test strip Ql (U) 2+ Negative [facility] Urobilinogen Auto test strip (U) [Mass/Vol]Ordered By: Oscar Poe on 12-19-2022 Urobilinogen (U) [Mass/Vol] Normal mg/dL Normal [facility] XR knee BI 2Von 12-19-2022 XR knee BI 2V [facility] [place] [address] XRay Report Signed Patient: Zuleika Wyatt MR#: [id number] : 1990 Acct:[id number] Age/Sex: 32 / F ADM Date: 12/19/22 Loc: Room: [address] [place] [address] Type: ADM INOo Attending Dr: Arden Orozco DO Copies to: DO Arden Jefferson DO Ordering Provider: Oscar Poe DO Date of Service: 12/18/22 XR/XR knee BI 2V: f ([id number]) XR/XR chest 1V portable: TRAUMATIC INJURY ([id number]) XR/XR pelvis 1-2V: f ([id number]) XR/XR foot LT 2V: f CLINICAL DATA: [...] Adela Mahan M.D.12/19/2022 10:41 AM Dictation Location: [place] [address] Transcribed By: [facility] 12/19/22 1041 Dictated By: Adela Mahan MD 12/19/22 1036 Signed By: 12/19/22 1041 Normal [facility] pH Auto test strip (U)Ordere d By: Oscar Poe on 12-19-2022 pH (U) 5.5 [pH] 5.0-9.0 [facility] Amylase [Enzymatic activity/ volume] in Serum or PlasmaOrdered By: Oscar Poe on 12-18-2022 Amylase [Catalytic activity/Vol] 35 U/L 29-103 [facility] Aspartate aminotransferase [ Enzymatic activity/volume] in Serum or PlasmaOrdered By: Oscar Poe on 12-18-2022 AST [Catalytic activity/Vol] 26 U/L 13-39 [facility] Basophils Auto (Bld) [#/Vol] Ordered By: Oscar Poe on 12-18-2022 Basophils (Bld) [#/Vol] 0.1 10*3/uL 0.0-0.2 [facility] Basophils/100 WBC Auto (Bld) Ordered By: Oscar Poe on 12-18-2022 Basophils/100 WBC (Bld) 0.7 % . [facility] Carbon dioxide, total [Moles /volume] in Serum or PlasmaOrdered By: Oscar Poe on 12-18-2022 CO2 [Moles/Vol] 20.0 mmol/L 21.0-31.0 [facility] Chloride [Moles/volume] in S gwendolyn or PlasmaOrdered By: Oscar Poe on 12-18-2022 Chloride [Moles/Vol] 105 mmol/L 98-107 [facility] Choriogonadotropin.beta subu nit [Units/volume] in Serum or PlasmaOrdered By: Oscar Poe on 12-18-2022 HCG.beta subunit Qn Negative [facility] Creatine kinase [Enzymatic a ctivity/volume] in Serum or PlasmaOrdered By: Oscar Poe on 12-18-2022 CK [Catalytic activity/Vol] 50 U/L 30-223 [facility] Creatinine [Mass/volume] in Serum or PlasmaOrdered By: Oscar oPe on 12-18-2022 Creatinine [Mass/Vol] 0.84 mg/dL 0.60-1.20 [facility] Eosinophils Auto (Bld) [#/Vo l]Ordered By: Oscar Poe on 12-18-2022 Eosinophils (Bld) [#/Vol] 0.0 10*3/uL 0.0-0.45 [facility] Eosinophils/100 WBC Auto (Bl d)Ordered By: Oscar Poe on 12-18-2022 Eosinophils/100 WBC (Bld) 0.2 % . [facility] Erythrocyte distribution wid th Auto (RBC) [Ratio]Ordered By: Oscar Poe on 12-18-2022 Erythrocyte distribution width (RBC) [Ratio] 14.4 % 11.9-15.3 [facility] Ethanol [Mass/volume] in Ser um or PlasmaOrdered By: Oscar Poe on 12-18-2022 Ethanol [Mass/Vol] mg/dL [facility] Ethanol [Mass/Vol] TNP [facility] Comment on above: Test not performed Glucose [Mass/volume] in Ser um or PlasmaOrdered By: Oscar Poe on 12-18-2022 Glucose [Mass/Vol] 93 mg/dL 70-[address] [facility] Comment on above: ADA recommended refe rence rangeRandom Glucose Reference Range is dependent on time and content of last meal. Glucose of more than 200 mg/dL in a nonstressed, ambulatory subject supports the diagnosis of Diabetes Mellitus. Hematocrit Auto (Bld) [Volum e fraction]Ordered By: Oscar Poe on 12-18-2022 Hematocrit (Bld) [Volume fraction] 36.2 % 34.0-46.4 [facility] Hemoglobin [Mass/volume] in BloodOrdered By: Oscar Poe on 12-18-2022 Hemoglobin (Bld) [Mass/Vol] 11.9 g/dL 11.8-15.4 [facility] Leukocytes [#/volume] correc osmel for nucleated erythrocytes in Blood by Automated counOrdered By: Oscar Poe on 12-18-2022 WBC corrected for nucl RBC Auto (Bld) [#/Vol] 10.3 10*3/uL 3.8-11.6 [facility] Lipase [Enzymatic activity/v olume] in Serum or PlasmaOrdered By: Oscar Poe on 12-18-2022 Lipase [Catalytic activity/Vol] 29.0 U/L 11.0-82.0 [facility] Lymphocytes Auto (Bld) [#/Vo l]Ordered By: Oscar Poe on 12-18-2022 Lymphocytes (Bld) [#/Vol] 2.2 10*3/uL 1.00-4.8 [facility] Lymphocytes/100 WBC Auto (Bl d)Ordered By: Oscar Poe on 12-18-2022 Lymphocytes/100 WBC (Bld) 21.8 % . [facility] MCH Auto (RBC) [Entitic mass ]Ordered By: Oscar Poe on 12-18-2022 MCH (RBC) [Entitic mass] 26.9 pg 24.7-34.3 [facility] MCHC Auto (RBC) [Mass/Vol]Or dered By: Oscar Poe on 12-18-2022 MCHC (RBC) [Mass/Vol] 32.8 g/dL 32.0-35.0 [facility] MCV Auto (RBC) [Entitic vol] Ordered By: Oscar Poe on 12-18-2022 MCV (RBC) [Entitic vol] 82.1 fL 80-100 [facility] Monocyte distribution width [Entitic volume] in Blood by AutomatedOrdered By: Oscar Poe on 12-18-2022 Monocyte distribution width Auto (Bld) [Entitic vol] 22.19 % 0.00-20.00 [facility] Comment on above: For adults in ED, MD W > 20.0 may be associated with a higher risk of sepsis during the first 12 hrs of hospital admission Monocytes Auto (Bld) [#/Vol] Ordered By: Oscar Poe on 12-18-2022 Monocytes (Bld) [#/Vol] 0.8 10*3/uL 0.0-0.8 [facility] Monocytes/100 WBC Auto (Bld) Ordered By: Oscar Poe on 12-18-2022 Monocytes/100 WBC (Bld) 7.4 % . [facility] Neutrophils Auto (Bld) [#/Vo l]Ordered By: Oscar Poe on 12-18-2022 Neutrophils (Bld) [#/Vol] 7.2 10*3/uL 1.8-7.7 [facility] Neutrophils/100 WBC Auto (Bl d)Ordered By: Oscar Poe on 12-18-2022 Neutrophils/100 WBC (Bld) 69.9 % . [facility] No Panel InformationOrdered By: Oscar Poe on 12-18-2022 Estimated GFR (CKD-EPI) > 60.0 mL/Min [facility] Creatinine Clearance (Chem 98.76 [facility] Nucleated erythrocytes [Pres ence] in Blood by Automated countOrdered By: Oscar Poe on 12-18-2022 Nucleated RBC Auto Ql (Bld) 0.1 /100{WBC} 0-0.5 [facility] Platelet mean volume Auto (B ld) [Entitic vol]Ordered By: Oscar Poe on 12-18-2022 Platelet mean volume (Bld) [Entitic vol] 8.1 fL 6.3-10.7 [facility] Platelets Auto (Bld) [#/Vol] Ordered By: Oscar Poe on 12-18-2022 Platelets (Bld) [#/Vol] 223 10*3/uL 150-450 [facility] Potassium [Moles/volume] in Serum or PlasmaOrdered By: Oscar Poe on 12-18-2022 Potassium [Moles/Vol] 3.5 mmol/L 3.5-5.1 [facility] RBC Auto (Bld) [#/Vol]Ordere d By: Oscar Poe on 12-18-2022 RBC (Bld) [#/Vol] 4.42 10*6/uL 3.60-5.00 [facility] Serum or plasma anion gap de terminationOrdered By: Oscar Poe on 12-18-2022 Anion gap [Moles/Vol] 14.5 mmol/L 6.0-15.0 [facility] Sodium [Moles/volume] in Ser um or PlasmaOrdered By: Oscar Poe on 12-18-2022 Sodium [Moles/Vol] 136 mmol/L 136-[address] [facility] Urea nitrogen [Mass/volume] in Serum or PlasmaOrdered By: Oscar Poe on 12-18-2022 Urea nitrogen [Mass/Vol] 21 mg/dL 7-25 [facility] WBC Auto (Bld) [#/Vol]Ordere d By: Oscar Poe on 12-18-2022 WBC (Bld) [#/Vol] 10.3 10*3/uL 3.8-11.6 [facility] PRBC LEUKOREDUCEDon 07-14-19 ABO and Rh group Nom (Bld) Cross Match Result Compatible Unit Blood Type A Pos Unit Number [id number] Status Information Released Specimen Exp Date Product ID Red Blood Cells Product Code [id number] Cross Match Result Compatible Unit Blood Type A Pos Unit Number [id number] Status Information Transfused Product ID Red Blood Cells Product Code [id number] Normal [facility] Comment on above: Performed By: #### R UBIGG #### [facility] [address] [place] [address] Dr. Juan Antonio Ibarra CBC AUTO DIFFon 07-07-2022 BASO # 0.0 103/ul Normal 0.0-0.1 [facility] Comment on above: Performed By: #### A 1C #### [facility] [address] [place] [address] [address] Juan Antonio Ibarra Basophils/100 WBC (Bld) 0.3 % Normal 0.2-2.0 [facility] Comment on above: Performed By: #### A 1C #### [facility] [address] [place] [address] [address] Juan Antonio Ibarra EO # 0.1 103/ul Normal 0.0-0.7 [facility] Comment on above: Performed By: #### A 1C #### [facility] [address] [place] [address] [address] Juan Antonio Ibarra Eosinophils/100 WBC (Bld) 0.9 % Normal 0.9-7.0 [facility] Comment on above: Performed By: #### A 1C #### [facility] [address] [place] [address] Dr. Juan Antonio Ibarra Erythrocyte distribution width (RBC) [Ratio] 14.5 % Normal 11.0-15.0 [facility] Comment on above: Performed By: #### A 1C #### [facility] [address] [place] [address] Dr. Juan Antonio Ibarra Hematocrit (Bld) [Volume fraction] 22.5 % Critically low 36.0-48.0 [facility] Comment on above: Performed By: #### A 1C #### [facility] [address] [place] [address] Dr. Juan Antonio Ibarra Hemoglobin (Bld) [Mass/Vol] 7.9 g/dL Critically low 12.0-16.0 [facility] Comment on above: Performed By: #### A 1C #### [facility] [address] [place] [address] [address] Juan Antonio Ibarra IG # 0.10 10e3/ul Critically high 0.00-0.03 [facility] Comment on above: Performed By: #### A 1C #### [facility] [address] [address] [address] Juan Antonio Ibarra IG % 0.9 % Critically high 0.0-0.5 [facility] Comment on above: Performed By: #### A 1C #### [facility] [address] [place] [address] Dr. Juan Antonio Ibarra LYMPH # 1.6 103/ul Normal 1.2-3.8 [facility] Comment on above: Performed By: #### A 1C #### [facility] [address] [place] [address] Dr. Juan Antonio Ibarra Lymphocytes/100 WBC (Bld) 14.0 % Critically low 20.5-60.0 [facility] Comment on above: Performed By: #### A 1C #### [facility] [address] [place] [address] Dr. Juan Antonio Ibarra MANUAL DIFF REQ NO Normal [facility] Comment on above: Performed By: #### A 1C #### [facility] [address] [place] [address] Dr. Juan Antonio Ibarra MCH (RBC) [Entitic mass] 26.4 pg Critically low 26.7-34.0 [facility] Comment on above: Performed By: #### A 1C #### [facility] [address] [place] [address] Dr. Juan Antonio Ibarra MCHC (RBC) [Mass/Vol] 35.1 g/dL Normal 29.9-35.2 [facility] Comment on above: Performed By: #### A 1C #### [facility] [address] [place] [address] Dr. Juan Antonio Ibarra MCV (RBC) [Entitic vol] 75.3 fL Critically low 81.0-99.0 [facility] Comment on above: Performed By: #### A 1C #### [facility] [address] [place] [address] Dr. Juan Antonio Ibarra MONO # 0.7 103/ul Normal 0.3-0.8 [facility] Comment on above: Performed By: #### A 1C #### [facility] [address] [place] [address] Dr. Juan Antonio Ibarra Monocytes/100 WBC (Bld) 6.2 % Normal 1.7-12.0 [facility] Comment on above: Performed By: #### A 1C #### [facility] [address] [place] [address] Dr. Juan Antonio Ibarra NEUT # 9.1 103/ul Critically high 1.4-6.5 [facility] Comment on above: Performed By: #### A 1C #### [facility] [address] [place] [address] Dr. Juan Antonio Ibarra Neutrophils/100 WBC (Bld) 77.7 % Critically high 43.0-75.0 [facility] Comment on above: Performed By: #### A 1C #### [facility] [address] [place] [address] Dr. Juan Antonio Ibarra Platelet mean volume (Bld) [Entitic vol] 9.2 fL Critically low 9.5-13.5 [facility] Comment on above: Performed By: #### A 1C #### [facility] [address] [place] [address] Dr. Juan Antonio Ibarra PLT 143 103/ul Critically low 150-450 [facility] Comment on above: Performed By: #### A 1C #### [facility] [address] [place] [address] Dr. Juan Antonio Ibarra RBC 2.99 106/ul Critically low 4.20-5.40 [facility] Comment on above: Performed By: #### A 1C #### [facility] [address] [place] [address] Dr. Juan Antonio Ibarra WBC 11.7 103/ul Critically high 4.0-11.0 [facility] Comment on above: Performed By: #### A 1C #### [facility] [address] [place] [address] Dr. Juan Antonio Ibarra CBC AUTO DIFFon 07-06-2022 BASO # 0.0 103/ul Normal 0.0-0.1 [facility] Comment on above: Performed By: #### A 1C #### [facility] [address] [place] [address] Dr. Juan Antonio Ibarra Basophils/100 WBC (Bld) 0.3 % Normal 0.2-2.0 [facility] Comment on above: Performed By: #### A 1C #### [facility] [address] [place] [address] Dr. Juan Antonio Ibarra EO # 0.1 103/ul Normal 0.0-0.7 [facility] Comment on above: Performed By: #### A 1C #### [facility] [address] [place] [address] Dr. Juan Antonio Ibarra Eosinophils/100 WBC (Bld) 0.8 % Critically low 0.9-7.0 [facility] Comment on above: Performed By: #### A 1C #### [facility] [address] [place] [address] Dr. Juan Antonio Ibarra Erythrocyte distribution width (RBC) [Ratio] 14.3 % Normal 11.0-15.0 [facility] Comment on above: Performed By: #### A 1C #### [facility] [address] [place] [address] Dr. Juan Antonio Ibarra Hematocrit (Bld) [Volume fraction] 23.0 % Critically low 36.0-48.0 [facility] Comment on above: Performed By: #### A 1C #### [facility] [address] [place] [address] Dr. Juan Antonio Ibarra Hemoglobin (Bld) [Mass/Vol] 7.5 g/dL Critically low 12.0-16.0 [facility] Comment on above: Performed By: #### A 1C #### [facility] [address] [place] [address] Dr. Juan Antonio Ibarra IG # 0.07 10e3/ul Critically high 0.00-0.03 [facility] Comment on above: Performed By: #### A 1C #### [facility] [address] [place] [address] Dr. Juan Antonio Ibarra IG % 0.6 % Critically high 0.0-0.5 [facility] Comment on above: Performed By: #### A 1C #### [facility] [address] [place] [address] Dr. Juan Antonio Ibarra LYMPH # 2.1 103/ul Normal 1.2-3.8 [facility] Comment on above: Performed By: #### A 1C #### [facility] [address] [place] [address] Dr. Juan Antonio Ibarra Lymphocytes/100 WBC (Bld) 18.8 % Critically low 20.5-60.0 [facility] Comment on above: Performed By: #### A 1C #### [facility] [address] [place] [address] Dr. Juan Antonio Ibarra MANUAL DIFF REQ NO Normal [facility] Comment on above: Performed By: #### A 1C #### [facility] [address] [place] [address] Dr. Juan Antonio Ibarra MCH (RBC) [Entitic mass] 26.0 pg Critically low 26.7-34.0 [facility] Comment on above: Performed By: #### A 1C #### [facility] [address] [place] [address] Dr. Juan Antonio Ibarra MCHC (RBC) [Mass/Vol] 32.6 g/dL Normal 29.9-35.2 [facility] Comment on above: Performed By: #### A 1C #### [facility] [address] [place] [address] Dr. Juan Antonio Ibarra MCV (RBC) [Entitic vol] 79.9 fL Critically low 81.0-99.0 [facility] Comment on above: Performed By: #### A 1C #### [facility] [address] [place] [address] Dr. Juan Antonio Ibarra MONO # 0.7 103/ul Normal 0.3-0.8 [facility] Comment on above: Performed By: #### A 1C #### [facility] [address] [place] [address] Dr. Juan Antonio Ibarra Monocytes/100 WBC (Bld) 6.6 % Normal 1.7-12.0 [facility] Comment on above: Performed By: #### A 1C #### [facility] [address] [place] [address] Dr. Juan Antonio Ibarra NEUT # 8.2 103/ul Critically high 1.4-6.5 [facility] Comment on above: Performed By: #### A 1C #### [facility] [address] [place] [address] Dr. Juan Antonio Ibarra Neutrophils/100 WBC (Bld) 72.9 % Normal 43.0-75.0 [facility] Comment on above: Performed By: #### A 1C #### [facility] [address] [place] [address] Dr. Juan Antonio Ibarra Platelet mean volume (Bld) [Entitic vol] 9.8 fL Normal 9.5-13.5 [facility] Comment on above: Performed By: #### A 1C #### [facility] [address] [place] [address] Dr. Juan Antonio Ibarra PLT 151 103/ul Normal 150-450 [facility] Comment on above: Performed By: #### A 1C #### [facility] [address] [place] [address] Dr. Juan Antonio Ibarra RBC 2.88 106/ul Critically low 4.20-5.40 [facility] Comment on above: Performed By: #### A 1C #### [facility] [address] [place] [address] Dr. Juan Antonio Ibarra WBC 11.3 103/ul Critically high 4.0-11.0 [facility] Comment on above: Performed By: #### A 1C #### [facility] [address] [place] [address] Dr. Juan Antonio Ibarra CBC AUTO DIFFon 07-05-2022 BASO # 0.0 103/ul Normal 0.0-0.1 [facility] Comment on above: Performed By: #### R PRQ #### [facility] [address] [place] [address] Dr. Juan Antonio Ibarra Basophils/100 WBC (Bld) 0.2 % Normal 0.2-2.0 [facility] Comment on above: Performed By: #### R PRQ #### [facility] [address] [place] [address] Dr. Juan Antonio Ibarra EO # 0.0 103/ul Normal 0.0-0.7 [facility] Comment on above: Performed By: #### R PRQ #### [facility] [address] [place] [address] Dr. Juan Antonio Ibarra Eosinophils/100 WBC (Bld) 0.4 % Critically low 0.9-7.0 [facility] Comment on above: Performed By: #### R PRQ #### [facility] [address] [place] [address] Dr. Juan Antonio Ibarra Erythrocyte distribution width (RBC) [Ratio] 14.2 % Normal 11.0-15.0 [facility] Comment on above: Performed By: #### R PRQ #### [facility] [address] [place] [address] Dr. Juan Antonio Ibarra Hematocrit (Bld) [Volume fraction] 31.0 % Critically low 36.0-48.0 [facility] Comment on above: Performed By: #### R PRQ #### [facility] [address] [place] [address] Dr. Juan Antonio Ibarra Hemoglobin (Bld) [Mass/Vol] 10.1 g/dL Critically low 12.0-16.0 [facility] Comment on above: Performed By: #### R PRQ #### [facility] [address] [place] [address] Dr. Juan Antonio Ibarra IG # 0.10 10e3/ul Critically high 0.00-0.03 [facility] Comment on above: Performed By: #### R PRQ #### [facility] [address] [place] [address] Dr. Juan Antonio Ibarra IG % 1.1 % Critically high 0.0-0.5 [facility] Comment on above: Performed By: #### R PRQ #### [facility] [address] [place] [address] Dr. Juan Antonio Ibarra LYMPH # 1.6 103/ul Normal 1.2-3.8 [facility] Comment on above: Performed By: #### R PRQ #### [facility] [address] [place] [address] Dr. Juan Antonio Ibarra Lymphocytes/100 WBC (Bld) 17.5 % Critically low 20.5-60.0 [facility] Comment on above: Performed By: #### R PRQ #### [facility] [address] [place] [address] Dr. Juan Antonio Ibarra MANUAL DIFF REQ NO Normal [facility] Comment on above: Performed By: #### R PRQ #### [facility] [address] [place] [address] Dr. Juan Antonio Ibarra MCH (RBC) [Entitic mass] 25.8 pg Critically low 26.7-34.0 [facility] Comment on above: Performed By: #### R PRQ #### [facility] [address] [place] [address] Dr. Juan Antonio Ibarra MCHC (RBC) [Mass/Vol] 32.6 g/dL Normal 29.9-35.2 [facility] Comment on above: Performed By: #### R PRQ #### [facility] [address] [place] [address] Dr. Juan Antonio Ibarra MCV (RBC) [Entitic vol] 79.3 fL Critically low 81.0-99.0 [facility] Comment on above: Performed By: #### R PRQ #### [facility] [address] [place] [address] Dr. Juan Antonio Ibarra MONO # 0.7 103/ul Normal 0.3-0.8 [facility] Comment on above: Performed By: #### R PRQ #### [facility] [address] [place] [address] Dr. Juan Antonio Ibarra Monocytes/100 WBC (Bld) 8.1 % Normal 1.7-12.0 [facility] Comment on above: Performed By: #### R PRQ #### [facility] [address] [place] [address] Dr. Juan Antonio Ibarra NEUT # 6.7 103/ul Critically high 1.4-6.5 [facility] Comment on above: Performed By: #### R PRQ #### [facility] [address] [place] [address] Dr. Juan Antonio Ibarra Neutrophils/100 WBC (Bld) 72.7 % Normal 43.0-75.0 [facility] Comment on above: Performed By: #### R PRQ #### [facility] [address] [place] [address] Dr. Juan Antonio Ibarra Platelet mean volume (Bld) [Entitic vol] 10.1 fL Normal 9.5-13.5 [facility] Comment on above: Performed By: #### R PRQ #### [facility] [address] [place] [address] Dr. Juan Antonio Ibarra PLT 202 103/ul Normal 150-450 [facility] Comment on above: Performed By: #### R PRQ #### [facility] [address] [place] [address] Dr. Juan Antonio Ibarra RBC 3.91 106/ul Critically low 4.20-5.40 [facility] Comment on above: Performed By: #### R PRQ #### [facility] [address] [place] [address] Dr. Juan Antonio Ibarra WBC 9.2 103/ul Normal 4.0-11.0 [facility] Comment on above: Performed By: #### R PRQ #### [facility] [address] [place] [address] Dr. Juan Antonio Ibarra DRUG SCREEN RAPID (URINE)on 07-05-2022 AMP Negative Normal NEGATIVE [facility] Comment on above: Performed By: #### A 1C #### [facility] [address] [place] [address] Dr. Juan Antonio Ibarra BAR Negative Normal NEGATIVE [facility] Comment on above: Performed By: #### A 1C #### [facility] [address] [place] [address] Dr. Juan Antonio Ibarra BUP Negative Normal NEGATIVE [facility] Comment on above: Performed By: #### A 1C #### [facility] [address] [place] [address] Dr. Juan Antonio Ibarra BZO Negative Normal NEGATIVE [facility] Comment on above: Performed By: #### A 1C #### [facility] [address] [place] [address] Dr. Juan Antonio Ibarra PARAM Negative Normal NEGATIVE [facility] Comment on above: Performed By: #### A 1C #### [facility] [address] [place] [address] Dr. Juan Antonio Ibarra CUT-OFFS SEE BELOW Normal [facility] Comment on above: Result Comment: AMP (Amphetamine): 500ng/mL, BAR (Barbituates): 200 ng/mL, BZO (Benzodiazepines): 150 ng/mL, BUP (Buprenorphine): 10 ng/mL, PARAM (Cocaine): 150 ng/mL, mAMP (Methamphetamine): 500 ng/mL, MTD (Methadone): 200 ng/mL, OPI (Opiates): 100 ng/mL, OXY (Oxycodone): 100 ng/mL, PCP (Phencyclidine): 25 ng/mL, PPX (Propoxyphene): 300 ng/mL, THC (Cannabinoids): 50 ng/mL, TCA (Trycyclic Antidepressants): 300 ng/mL Performed By: #### A 1C #### [facility] [address] [place] [address] Dr. JuanA ntonio Ibarra DRUG CUT HEADER DRUG CLASS TEST SYST EM CUT-OFF CONCENTRATIONS ARE FOLLOWS: Normal [facility] Comment on above: Performed By: #### A 1C #### [facility] [address] [place] [address] Dr. Juan Antonio Ibarra mAMP Negative Normal NEGATIVE [facility] Comment on above: Performed By: #### A 1C #### [facility] [address] [place] [address] Dr. Juan Antonio Ibarra MTD Negative Normal NEGATIVE [facility] Comment on above: Performed By: #### A 1C #### [facility] [address] [place] [address] Dr. Juan Antonio Ibarra OPI Negative Normal NEGATIVE [facility] Comment on above: Performed By: #### A 1C #### [facility] [address] [place] [address] Dr. Juan Antonio Ibarra OXY Negative Normal NEGATIVE [facility] Comment on above: Performed By: #### A 1C #### [facility] [address] [place] [address] Dr. Juan Antonio Ibarra PCP Negative Normal NEGATIVE [facility] Comment on above: Performed By: #### A 1C #### [facility] [address] [place] [address] Dr. Juan Antonio Ibarra PPX Negative Normal NEGATIVE [facility] Comment on above: Performed By: #### A 1C #### [facility] [address] [address] [address] Juan Antonio Ibarra TCA Negative Normal NEGATIVE [facility] Comment on above: Performed By: #### A 1C #### [facility] [address] [address] [address] Juan Antonio Ibarra THC Negative Normal NEGATIVE [facility] Comment on above: Performed By: #### A 1C #### [facility] [address] [address] [address] Juan Antonio Ibarra TYPE AND SCREENon 07-05-2022 TYPE AND SCREEN Negative Normal [facility] Comment on above: Performed By: #### T NS #### [facility] [address] [address] [address] Juan Antonio Ibarra US PREG BIOPHY [...] FELECIA GOLDMAN Date: 2022-06-28 15:29 Normal [facility] US PREG BIOPHY W NON STRESSo n [...] by: FELECIA GOLDMAN Date: 2022-06-21 17:20 Normal [facility] US PREG GROWTHon 06-21-2022 US PREG GROWTH [...] GAMALIEL CRUMP Date: 2022-06-21 13:37 Normal [facility] CULTURE URINEon 06-16-2022 CULTURE URINE Culture Observations : LIGHT GROWTH OF MIXED GENITAL ALONSO. NO POTENTIAL PATHOGENS SEEN. Normal [facility] Comment on above: Performed By: #### U RCX #### [facility] [address] [place] [address] Dr. 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 Juan Antonio Ibarra Clarity (U) CLEAR Normal CLEAR [facility] Comment on above: Performed By: #### U MICRO, UACSIND #### [facility] [address] [place] [address] Dr. Juan Antonio Ibarra Color (U) LT. YELLOW Normal YELLOW [facility] Comment on above: Performed By: #### U MICRO, UACSIND #### [facility] [address] [address] [address] Juan Antonio Ibarra Glucose Ql (U) Negative Normal NEGATIVE [facility] Comment on above: Performed By: #### U MICRO, UACSIND #### [facility] [address] [address] [address] Juan Antonio Ibarra Hemoglobin Ql (U) Negative Normal NEGATIVE [facility] Comment on above: Performed By: #### U MICRO, UACSIND #### [facility] [address] [place] [address] Dr. Juan Antonio Ibarra Ketones Ql (U) Negative Normal NEGATIVE [facility] Comment on above: Performed By: #### U MICRO, UACSIND #### [facility] [address] [place] [address] Dr. Juan Antonio Ibarra LEUKOCYTES MODERATE Abnormal NEGATIVE [facility] Comment on above: Performed By: #### U MICRO, UACSIND #### [facility] [address] [place] [address] Dr. Juan Antonio Ibarra Nitrite Ql (U) Negative Normal NEGATIVE [facility] Comment on above: Performed By: #### U MICRO, UACSIND #### [facility] [address] [place] [address] Dr. Juan Antonio Ibarra pH (U) 6.0 [pH] Normal 5-9 [facility] Comment on above: Performed By: #### U MICRO, UACSIND #### [facility] [address] [place] [address] Dr. Juan Antonio Ibarra SPEC GRAVITY 1.020 Normal 1.005-<=1. 025 [facility] Comment on above: Performed By: #### U MICRO, UACSIND #### [facility] [address] [place] [address] Dr. Juan Antonio Ibarra UA PROTEIN Negative Normal NEGATIVE/ TRACE [facility] Comment on above: Performed By: #### U MICRO, UACSIND #### [facility] [address] [place] [address] Dr. Juan Antonio Ibarra UR MICRO IND INDICATED Normal [facility] Comment on above: Performed By: #### U MICRO, UACSIND #### [facility] [address] [place] [address] Dr. Juan Antonio Ibarra Urobilinogen Qn (U) 1.0 {Pamela'U}/dL Normal 0.2 - 1. 0 [facility] Comment on above: Performed By: #### U MICRO, UACSIND #### [facility] [address] [address] [address] Juan Antonio Ibarra URINE MICROSCOPIC ONLYon BACTERIA SMALL Abnormal NONE SEEN [facility] Comment on above: Performed By: #### U MICRO, UACSIND #### [facility] [address] [place] [address] Dr. Juan Antonio Ibarra Bacteria identified Cx Nom (U) INDICATED Normal [facility] Comment on above: Performed By: #### U MICRO, UACSIND #### [facility] [address] [place] [address] Dr. Juan Antonio Ibarra CAST NONE SEEN Normal NONE SEEN [facility] Comment on above: Performed By: #### U MICRO, UACSIND #### [facility] [address] [place] [place] [address] Dr. Juan Antonio Ibarra Crystals LM Nom (Urine sed) NONE SEEN Normal NONE SEEN [facility] Comment on above: Performed By: #### U MICRO, UACSIND #### [facility] [address] [place] [address] Dr. Juan Antonio Ibarra Epithelial cells LM Ql (Urine sed) RARE Normal NONE SEEN /RARE [facility] Comment on above: Performed By: #### U MICRO, UACSIND #### [facility] [address] [place] [address] Dr. Juan Antonio Ibarra MUCOUS NONE SEEN Normal NONE SEEN [facility] Comment on above: Performed By: #### U MICRO, UACSIND #### [facility] [address] [place] [address] Dr. Juan Antonio Ibarra RBC NONE SEEN Abnormal 0-2 [facility] Comment on above: Performed By: #### U MICRO, UACSIND #### [facility] [address] [address] [address] Juan Antonio Ibarra WBC 2-5 Abnormal NONE SEEN [facility] Comment on above: Performed By: #### U MICRO, UACSIND #### [facility] [address] [address] [address] Juan Antonio Ibarra GROUP B STREP CULTUREon 05-18 S. agalactiae Ag Ql (Unsp spec) Culture Observations: NEGATIVE FOR GROUP B STREPTOCOCCUS. Normal [facility] Comment on above: Performed By: #### G BSCX #### [facility] [address] [address] [address] Juan Antonio Ibarra US PREG BIOPHY [...] GAMALIEL CRUMP Date: 2022-06-14 16:10 Normal [facility] US PREG BIOPHY W NON STRESSo n [...] by: FELECIA GOLDMAN Date: 2022-06-07 16:42 Normal [facility] US PREG BIOPHY W NON STRESSo n [...] by: FELECIA GOLDMAN Date: 2022-06-04 17:11 Normal [facility] US PREG BIOPHY W NON STRESS EXAMINATION: [...] by: FELECIA GOLDMAN Date: 2022-06-04 16:23 Normal [facility] US PREG BIOPHY W NON STRESSo n [...] by: GAMALIEL CRUMP Date: 2022-05-31 18:39 Normal [facility] US PREG BIOPHY W NON STRESSo n [...] FELECIA GOLDMAN Date: 2022-05-24 16:34 Normal [facility] US PREG GROWTHon 05-24-2022 US PREG GROWTH [...] FELECIA GOLDMAN Date: 2022-05-24 16:33 Normal [facility] GLUCOSE - 1HRon 04-04-2022 Glucose [Mass/Vol] 101 mg/dL Normal 74-106 [facility] Comment on above: Performed By: #### R PRQ #### [facility] [address] [address] [address] Juan Antonio Ibarra HEMOGRAM AND PLATELon 2021 Hematocrit (Bld) [Volume fraction] 33.5 % Critically low 36.0-48.0 [facility] Comment on above: Performed By: #### A 1C #### [facility] [address] [address] [address] Juan Antonio Ibarra Hemoglobin (Bld) [Mass/Vol] 10.7 g/dL Critically low 12.0-16.0 [facility] Comment on above: Performed By: #### A 1C #### [facility] [address] [place] [address] Dr. Juan Antonio Ibarra MCH (RBC) [Entitic mass] 29.3 pg Normal 26.7-34.0 [facility] Comment on above: Performed By: #### A 1C #### [facility] [address] [place] [address] Dr. Juan Antonio Ibarra MCHC (RBC) [Mass/Vol] 31.9 g/dL Normal 29.9-35.2 [facility] Comment on above: Performed By: #### A 1C #### [facility] [address] [place] [address] Dr. Juan Antonio Ibarra MCV (RBC) [Entitic vol] 91.8 fL Normal 81.0-99.0 [facility] Comment on above: Performed By: #### A 1C #### [facility] [address] [place] [address] Dr. Juan Antonio Ibarra PLT 179 103/ul Normal 150-450 [facility] Comment on above: Performed By: #### A 1C #### [facility] [address] [place] [address] Dr. Juan Antonio Ibarra RBC 3.65 106/ul Critically low 4.20-5.40 [facility] Comment on above: Performed By: #### A 1C #### [facility] [address] [place] [address] Dr. Juan Antonio Ibarra WBC 9.9 103/ul Normal 4.0-11.0 [facility] Comment on above: Performed By: #### A 1C #### [facility] [address] [place] [address] Dr. Juan Antonio Ibarra US PREG REEVAL [...] by: FELECIA GOLDMAN Date: 2022-03-20 20:55 Normal [facility] US PREG ANATOMY SINGLEon US PREG ANATOMY [...] by: FELECIA GOLDMAN Date: 2022-02-22 16:46 Normal [facility] Coding Summaryon 02-14-2022 Coding Summary HTMLBase 64 WeksjbwlIMa5bAt+PGhlYWQ+PE 7OFMOgH23qqQOryV2SY6aARR7R WISKOMRYCC9QDC4xgLE8ASkmA2 VybiAv PsmufMRgBK76BPq7ZFD6zXdgWZ iotE0bkYMaB3c9LrSyUL76xP17 CSujCRMkUxO4MeOhduxfeXRq M5ocRjRdtSCrZyl+PHRhYmxlIH vzMLEaDNksEARzRtYodTldWM0f Lu0vCWHgBEJuxVqlxGRtSiNh m9zrAHKhATqrAT4fvClbT2ZgyM C1LZGdt9y6Mg99uGR+PHRkIHN0 tYvkKMugl768BsBsx6hmPBP1 oUItVAjcOKQ9M50oj5M6TRUlUP UjBUK0gGT7bP9kaPjphjwwF7Gl lHQtQkD5PPW0lXTtuW8zdZwk vkavbF1pQzn+O88NNT0ZCAJLRY 4DVuv2Q2SlSjbxpFE+EN34DAUr OU36uEWezWQka2odoJx5EdJa JAQdYXA7fYwvSDqmv0DjMLAdM9 6jtFGwy5T0PCWyxAwzmSLjWxFx dKM2wE2qBSffgfmmq0ctdsnn Cvpmn2agyo54sI05J70vYUdeMC XmUSH5XFIkQSEzaFamqt0cpN9o Ii8+OVpyi2sfs0kjaEs9FvRq DWEhdmJqbWpyFBT9q1OtKw99B3 RlqGurl2TsMta6qg57kWRtz3L0 aRX3OVkeCOYbrY5jMHjcPoP3 PJYyJgGetV61uYTiUArmPd4mnV yhyVvzII2yTRErdgacWZUjdN9g YTQvyMPzuJkvTZ2mPWAqnmwc i035ZyMeKVC3AOBcdKYsV5UveW 9qRmDhMLYeVWZvQ4MosZAiENoe F209FZydSiB2OVSdbwBxP3Dy WCEmbThkTtH6t6H0Qs6Cg5Hqrz ukFCZ7HIepJOT8FzZnGzQlEiC5 A3UcYwu1OIDdjSdtOR5kU8Tm EDRdpglakmfmkCW6YVOhIEHroT 01jKFlBUgnDt5vo7A4x690MUGf XHYykV34Cq3ddMuiZMIfeXKS sU6pghfym8iqcxwtIuSrWQZmQS b5OFj3RSKgqSycVoWxHOW8CcL9 UUJ6zIJsbJ3uoAiheubwdI3n Oyc+W26csU2oTNP4BEU2cvvlLI YjyoZpWB03KF22F5XhNsyflVUl bGU+QHDoyhIpzMqxMW1gTnYx i9emp6FfZMzpC4ZcHLJtOAdqJr a9HKElNTW6rGZ8cL4tLOCfTFqr b8H9bJC1Z3RiqfJmnz6st2yc BCOsRXebC06zdDKdm4N4DHOjoX I5ARTlnBbsGgVkgH56Lne+PGNv aJdtl4JvEnuxj9dzp9bhnQq5 VgLlTUQtdyBsiEuaPDY1d5FpFx 11U57hHUpeBESeXKScCWPtYNWe zZoccu7yrH0rWz5+PGNvbCB3 yDW2yB4iVMQmVkD2WGndX380Jz IvuNOySfgdn7wcv6etxTz8KxZt UUEkwaDykYqmABK1h1RpEm66 R88gXEkxBYFdPATyXRDoXVGuaL ntct9gwX8gYj6+LB7fu5mtbw64 gM92jBG+CKIfHEB8aXosYRcj UXVcaE3dHSwiIqW8AVYbNrDmiR 79uPJgMBmmNd3sgAdrqCzjZW6y FZGmiusmg662TmNge1bdWMAl uJRyXAroQZN0H18zp8F6MKQgUM WuCZD8sRW4kR1blIdghcozdNIs jScfbbZgpMedOTyxTEzrB803 IHRvcDsnPlBhdGllbnQgTmFtZT p1R3QbKxj1IQMikQgrWQ9sfWNa PZgeFs1wyHrbpQmkVA7pNYKc mozyr737UgDhx4weASFeoDRrCM puQBY9T13ua9V2DMVlDUBeYPG8 hYG8pZ1ghGdbolfeiKAhrGyp ptZpqOcyOZgsLKieM299NBBqaL btBaWjtiMyUFKveMF7SY65HR62 eEAhe3I1xEU4W6DyISKtvzlc gbfjeVR4UPAsZBJrhR85Ub8tjM btRe8sMVDuGDO1GCQbwKCkM6No rZ2mQoHkHBWpUMLlA8CgvINo MHmkE562ZWqdZiJ3OYRdaxQeD1 GnXEMyxJreBfE1a9Q4Vi6RC3W3 GU43NV57cRCyu3L8iKQ2M1Pz JXUcoqvyeubobJT7QIAwSYEhlS 06Ne8vcLyzYa8cTWYhEDX0CSUo nFYuZ0PjoO6kCfJlRWLmTWRf J5VpoYZyPOvjF169VXyyPtY3QA ZettLmF8NhAMVghXtsInV9k1X6 Oc6IIQi5FW40LJ10vEImd3P6 bIW5M5FiQOUmxuiqibzihRY3KM GvPSDnmB30Bt3vuJogSu0dIPEf ARV5YYPzbENqN6NeyC7sTcKy UPLiVVRgF1ZjkGJjPYwuP278MR ucKyO5KFOddkXvH8SyCFWvaQal WbX5w1J1Re5GYBTbEJ38RGX9 kYD4XQ97QT61K5WeOolxpTRyzN U+PHRhYmxlIHdpZHRoPScxMDAl IaWkyHwbWW0gJr4xPNOfKXZj hBpgxTNcLxNtx2yeYGNdOCmiRN 3guWkrH0GugIF7DACux5s1Dn19 N37aM3OepQA+FOYhuLJ5aOQ1 bC3dAkZcYkF6LYgjP337WjXwgH GaRtmlr0iud4vidUx7JcT2WZMv ymLrkIojIFF5q6QfMe32K49h IHdpZHRoPSIxNSUiIHZhbGlnbj 0ddJ3xDr9+BFCrjBG2iTA1cB3i ZlNdXoL1MBbeP569TiNfyUYz Yorac6vev0vlpSx0SvCyKHBfrm LlmXgeDSY6f0QiTc03W0XdqEbu b7IuBgc6cz91hDZbl0D9nSG9 H8FnKNTjhdeniBMykUxdME7hEN FkwhwgXNPpsQ7iKGQhR2g2JzBb TqN3JCkhL6UkwiP4BPMcqWMy KUxhFZE2O72hb1T3NZVqUOQuFE D8ySA8wO7kuWvsfxdphSTqhVsm glPhmOvtYWqtLFehO792QFRt oIckSSYicN8wUBEwpVEtuHgeVV 4wNTBpbjsnPlNURUlOLCBWSVJH EA7LBMJHEJN2J6OaSqj5JBNc xPlsAP3yeKRwBCurQi7ddMqxsZ jvOH1uZPXgwtqqYDAftI4wYWPa eZLrwUseOS9kVPQoktpxe313 McVpSPW9KZUubSDsM3HwlO5uWr CeKGUvHZDtL4ZliRXmDLgsP431 BOowArJ8NVFcevVrY1ElWTNb lZhtYbQ6v9T0Is6kBU4pRF4eWP cxGK92ZL95jLOou2I8gQW8H5Kf YPAoigikpaqydRR2PDIjDPQr eV04sZQsXFgoUs3tk5U2i108HU LpWYXgqO83Yn6lvWsdOOOoeNGZ uW5ixamjg5bsflbsRtYdXCUm VRs7TPv8IQIheUvwGuHbYTU9Dv V8CDR3jNFdlS1lnJflfsdjtQ3p Oyc+BrmwIJOalgC2Y7BiZhs7 RUNrkVhgBV8kmHQyXFioDy2fvG wxqDmcFV1rOBQbxsdtDKZodM2n QLNsdOQrpUvuVI6aUURtzhnx f049QmWmGIW5HTOiaYZlL0WpbP 1eHsNkIFLeISPqK9JdmNKvECsr Z967YObgFsR8IWQiviOiJ1Ra ZOUsjDcdZnL5s8A5Yh6IET9GGB O8V8IxZqr0CIUoaVzgLD4ggQWh WDzpQb8mxHthyWxsWZ7tYMLi eolpBXHpgM4dNSUfjDHeuKqtHY 7cSSUpwfzef985KmLxIMT4PCCi jUOjM0UmiH4aJbMmBIHuJRQt T8VdkVYoSTrpW516KXamMbU6CJ PvfnHlG6ZoIMUwwLttVqU8r6O1 Ws1ASEbzwVJ+WU79bf78P5Cq KldkSyn1ZOBfFXH2oBC4sB0oWJ HoZEbnn8G9iUA1O7JrenGglh3n j0yfLMPeZRelJ68nnLTvy3H0 USYfvJU4CZYjlDcdLqWkpV39Ar c+XTOepOnzb0NkLtcos9adw4cd jEd8MgBoBRLobyRxpSxyGPV2 j9FmTb71H67dFLniCTYgYVNbXW ReKJBhtBmqps1ibM2eDg4+PGNv aLS4bUT9kY3tLcLwXxW2YXve O653BtAeuSXmMfupb5tzb4aooK h1YiXsAAIxdnZuxTyeUWM2x1Xw Sx11E1EzpNdeb0FrSxa8wn77 qEAyd6R1pGN9M9UaSTRxsaxhuX QjgBttII3vRCPuxsznEZAytA8s AKDvG9x3UxBsUeQ6WZeaY4Th atV1UZPduJKhGHZglKRYfZ8udk soq8ogxiimQjSqASDqUDy6GMk3 SLTdsTwgUoBuNMJ6WwE2WCH5 yFFnbJ3etXvwaryjhK2cWfp+UG b5h8sqwUUjJR2vuTS1UW40NV43 dPXts4E8vTI6C9CaIMJipscf klpsqYN6ZKErKTPuqS54Gq4idU gpDt2qTXFqAER8HHAymWErM1Qs jC9sRqReIYWxKZPpQ7PmnYWw KXzeD931BXejJmU8SOUvxdIxV1 ZkASMxiEfjQeF8q2X0Lu6IEF93 QD22QE55tWTvm2D9iLG8I8Mb ITOealggmcqtjCA7KFDfUNXqbI 47Bm6wwCffGc7xINWnRQM2MVGx jWWaJ9KoyO8aJyImJGUwGBEf R2HxwBFhIFofC696XFddBrU4ZJ SpqrPsO0PpYPRgtLiaGwY6u3A0 Tm8NVe69CY15YE42lVKaf3F5 jAW1J7ObNLYxdofernlpbRF4XH NoXAPflA44Cu6guLyfRj7nCABu HMZ1JQVctNKfT1GsxV6cCzVg KMNrIKGhR0FibERhOQuyA750FD koCuT6TNWwtcXaR9DoYYIqhUla JqJ3n4U8Na7XDEzweeh9R7Yo PjwvdHI+RK71VMBcBX69wXFckC Qjv6vxkPx3JuEnLRAuNVZ0fQeo AWxwf6LsRMEkC49jbEAft1B9 IGN (more content not included)... [facility] Coding Summary HTMLBase 64 KchwywlpXOp4eHp+PGhlYWQ+PE 3PWTXsP98ylLPskE2TH8mWPN6X CRBDBLDASC3OUW5tnJD2AWqxZ9 VybiAv NlvkoQCgCS26EHx2NZK3mAywUF mrmG0hpTTxK3i0FvZmJZ90uD43 DRbbUUYtDxE2LdLfzkitkIDv X7qtOiCtbERvOwq+PHRhYmxlIH lhQMIhHPrlETFgRvCzlJivEF2w Ke6kMVEfUPUzwGgeoIUpDvRq t6gkUTBvHPxgBA4vsNwkI6SemK W9HZWhs1b4Ne11wGE+PHRkIHN0 qKalTNgeh691VyImu1bzCBN1 pPXzRWndHUB9L39th6D5ENUgFF BvIRH6pFV3tN5dcCgnqjuwT7Nw gCBmVaF3XVP4hRLhbM5cdOno gbegzT2qSnc+Z16YAJ9CUTGPID 9FUek6Y2AsGoucrIC+TL52GVHb YK22zEEpbMOhk0newOg7KtDc DECzJUG7yOlqVLffi9AbBVIxM9 3ocYFul7I6YVYhaEvikCZfMaGc mCW3cY3zALwwibaxj2rpubvm Oamnq2aboo90kM06E88eSOtbYM WmTLJ4ZZCbUGEwgUbmvd5rjJ7h Ii8+OIoxw0nzz9gjpPg9PuZe FLHxxjGvqHenXOF6v3VrWc47C4 QepPxtg3FoLbt5ro74mLAfr3B2 uNL1RVahGLHkuM0vKHblEnK3 GDAsYyCxqR52jBJeUBdwFf0yhV syiMrjXZ9lJIOvvcicICIyyF6v KDNamZRuhXtvPV9zBFYmrxwg w781DpIrMPH3RALmsKEmO5GtyH 0sWeYyQFXpFKOoC3OvpBIyKKgh W155NWarFcK8GBPughWjG9Wh OIAnmItkLwV4w9A1At2Pr1Ulxs izDBF8EGflEUC8CyOnYrKfCzS9 O0DeQvx3RNPltYfcFS2kD4Eh HWVpsmmbwhfikFZ5XTLkAFQuqF 57eEMgLTcgLy3lx7R6x597DMYb WFUkrK27Gu9puQavVNPucHXK rK4rnzohc1nipfgqImMiQJZsJU y8PUi8UMAbeBvbKvYjDEU6ZcL8 KLN2sQJoyW2hcAlyhzgqeG0i Oyc+V30xaV4cWYP1URF0iywxQS FqmiSvJG99HN90K8GyBwwcjBHf bGU+FJXtrbOrrHedUK3hNsLh p3dzl2HnURjgR8DaSDZxNYndWn v8LGHmIUU9pZP2iI3wBPTvZPqp f4M2dHC6E8EddcTsph4in0dr CVDuKPrtI44euIIqu1R3UMKgyK L5AFDexFvaNeCfpG58Pzo+PGNv qCsxo5MvMochq5cim9kchVa4 TlNqHTTqhiNijQvvKHP1g5TyEl 71X11aEVqnACOjCXVmEIZhSYFa bNncsp6jiI8mUu8+PGNvbCB3 fTY8oX8hSQPzHgJ3APjaV448Xi XxuJDdDnlzv3qrm3xaeRl2PtXk TMKxoyDfzQgyLWM0o5QpPw73 Q08zJCgfHSOeNJSzEQHpJXGokE fvay0enK5yNc9+HG2ib7ezew89 zT96oFN+VMErLME1vTinYVsz NXOgqR5gVFzgGnN7WPOqAaEuiY 15jEZdZLkhRu7qrAlmhMgoOA2r UWWkadocj363AoNbx8irLXQf nEVwXNfsOGS1C34bo1N4IZPnBD TzCMX9rOU2oW9pmTiyyzdfxGRv dQrmqrWxzMpfERmgXKczK062 IHRvcDsnPlBhdGllbnQgTmFtZT s1Z3HhWua0NPUppNisRF7hvHYe UUtdUo6cgGjuuNsqNB0tTBHl jmche368HxZjy6xwDWCacKDnRD kmYCN4M35us8L7YJCoEJYwNRP4 bNK4rZ6imSlqleoqvRZiyHqv iqHqvXimUJceMQbwN027ZJYpwZ uoEdPsoyEuNSNhzRB5RW04HW89 lJNqc6U9cAT1X6QpNTHngzcz vmecsER6NXSoZQTuuG94Sh5xoC rtHh9jQPPyXHU1RAWxrTTeZ1Qh wF4gRrFfBDHeVHFxB9BkxYCj BWkfE147LZoaPoV8CXQrpcAyS2 RcTJDomWwuEoP4r7A2Ai7ZI8I3 NR50RP99oTBfd1G2qLH1X9Rf BATgkczwgzciyTE3WEXtTRGalQ 04Vz4qnPfjOm6vDNNlRPG3PSUf wNLsG2NgaZ3iWpQlGZWwWIWu C1GnlLDuFEcxY034XUyePjL4DD WmwwOyJ6FySBYbrGzkJxT5a8Z6 Oz6ARIc1PB11QL62gARpc0J3 nOI0T2UbSJUpdjfejnkfpWI8AT AgGXVvmX04Zg6zlDtqNe8qMXIj TKQ4EGWmnBFtM8XcfP4wSpRv QUHiSVLwU4QtjTJsIYtrG548YU eqGeH5VSKczcXeY9JoKMDspFtb YqX8p0B1Tq2IRHQhJP97YPD4 dJX1TK29FP05R6XcGbvefMWtgZ U+PHRhYmxlIHdpZHRoPScxMDAl NwWsrFvhVY9yGd1yNBTaKCNj xXfraLZqPoVxy4rsHVYrAZkeDL 1uaWjvK2WyeKS7PRJio2z8Qy21 T09kF9JtjDP+FCLcbYR7gVV8 iY8fQeUdHnB7XOefL442RmHwkX XjVcnvv5txa9tzeAj0DrN0QQVz abBkhJjpAVD9j6ZcIm52Y88p IHdpZHRoPSIxNSUiIHZhbGlnbj 4xmM2aAn1+YIWzyTC4xYZ8tH9g EhHqNnY8MNohZ598EqOjdMTn Ysuyu6ifd0yqoTc1BoKePJIojf AyuYcbNLT4b7HhHt83Q3XsrXnc x3JqIdg3fd44qBBeu6P5bHD8 F9FgXTYezzcroKKrzKweSQ8fZJ LzwasyXHHlcX2yEGUqE6w2NnRo CbF9LFgbE5EvmeD0LPYrgXZf GVkxART6C11fn5X5NNCgCYVuIH K3sKU6cW0rdWxvotdhrTEbbThd fkLnlLasIHgnXTqqF777KTHo aFghVERvjN6vJUPveMJfqQzzQM 4wNTBpbjsnPlNURUlOLCBWSVJH MH1ZPYCVHEO4G3VfQqg6PSLr iOroDR0xxEGaIVjjXd9gmQjvxW suDZ4yEZSyvymfFPHhpN4cKLMa rTMynPvtSG9bUYHwkgvvp735 YyIiVCV7PHOxvKGwS7LwyP8xSu BvHBDyTLRhC4TthNRjHKlvG404 IGykXxP4YZIzumXmD5NhVGAr vHmlBjF3a2G4Yn3uSF4sED7xKO veZZ39XW93oUJog8A4gSX3N2Jb SAMixkeqmqjsrSK3HOBeVJFo sA17nXXtWRygVd7li3S9b608RY HpKQKdnC54Mh6vzVdeMCBziXQI pE4dhdqzk9sgwujmVlYdADUq QQv4SIl8AXTdgIaeCfDcAUD9Yw C0TAT1gJLsxF6ktZeeoilliP9o Oyc+KfplMHNyzyT0A5FoMhb1 YRBtwBcuKO0nyBFaSDokIx9srK iakBghGE2sJEOvhkymBWDmlV5b ETVbwMFsuMreZX6kTRTodcch z917WaKiHCN6OWNlwXNxZ4XqoK 7uRoUvUMBiTZYbK3DcrEChSJlr W703FGgcYuP1DQLusjEiX4Re MSPtuLdkXyQ1d4I6Ey8WKP0LPU H9L9NsAul8HWQavLavHJ9agNDg QExsGw5abXnhqQagJP9tTJZc sadlXTTxfG0vSXEvgELqnIwwOA 3nRMIoxvekw979EuWyDNI9QMXf zHKxS7AibK5bKxKqEWImHTFd O3FzrOFdOTamU171MTjqDvT5BK QccdGhY3YrAWBzvPsqXwN5r3V9 Mb6KxVLwD6XrK5n2R7UrPgek dHI+QM07HVAlQJ22eCRogCFdj9 aifYe7IjYnXYSwCUZ2fExpQJxe m1VhYIRtK15prQRjg5T8DJXh lIsuaDFaMrWehSE3sC3vDAqbjc umo4gxzflpTywgi0sogt25fU63 X90qKZthQWMiQYJaLOUpVXAi sPhnqj8tqW9cKc7+GPIgeWJ6kE N0cK0tXvVmJeM6WDmrD975BdCl iNAeLtvza1doi2tlsYw0LqJq QUHcxhTwwWouCJV7h0MpYz86R7 9sIHdpZHRoPSIyMCUiIHZhbGln rt6eiF3aNe9+JC0je0gmil16 hD31hID+QRIrJDH3cVvnFCruOI ObvJ7rDZnsHkB7IPQgHgOugS79 rECvJWhxZz1xqRvaeYzfHR4a LHSybrnof292XrUwd8toNFHnuW AeRYlfYTO7X97kf9V5TJOkGGTg RQG9yRU4fB8fnZshlratzNLz sFwdenDbaXwiKSqnRUxoO544SI EcvKpxGdGyjDIkC5vtoaVFLF6p OjwvdGQ+UIMpNXG8gFjyGLbi VXBueK9aPJVuK3o8EjHmOxK1PP mzB6FuboA6RDYpbMEjENVamJQI gO8tdyihm1dfapaeVxAtBYUl ANj3HTp4OQIwiFkkMcQdJLL4Xv E4IEX5fRNdwT4nuKofrbjfnT5h Oyc+RklOOjwvdGQ+PHRkIHN0 wJyzGDycYJEmyH4gRMDxC4y5Lq CbPaL3CFdwW6OvenC2HCZuuWRl GCJtxTLOuQ4rbhaej1erljkl GvQqTBCuMIz2IWs0KHOnaCtaGi NlUGH3ToG1POB0gAJemN0mqOlg miyhbY8pUpf+TVJOOjwvdGQ+ UKYnTVO1vJfsTGemQQOnwA8pSA LfX1n6UqXgLuR8FBpgA1UtnoK5 ZXRrdCTcFYHpkUABlI7vnsge u1nikjlbOdIiPVNuIRx0TPx5BA EprBykEpXuBOJ2TjP3QAV9eKXd cR9daZlzxpupaH3gZor+UGF5 MBK9OW90DY84A6OsIlwofJPcuD U+PHRhYmxlIHdpZHRoPScxMDAl ZiFirSaxRZ8gMx4jYNVeDUYd bGx (more content not included)... Normal [facility] CHLAMYDIA/GONOCOCCUS RAINER ( AB/URINE/PAPon 02-09-2022 Chlamydia trachomatis, RAINER Negative Normal Negative [facility] Comment on above: Performed By: #### R PRQ #### [facility] [address] [address] [address] Juan Antonio Ibarra Neisseria gonorrhoeae, RAINER Negative Normal Negative [facility] Comment on above: Performed By: #### R PRQ #### [facility] [address] [address] [address] Juan Antonio Ibarra AFP MATERNAL FOR SPINA BIFID Aon 02-08-2022 AFP MoM 1.41 Normal [facility] Comment on above: Performed By: #### A FPMAT #### [facility] [address] [address] [address] Juan Antonio Ibarra AFP Value 66.8 ng/mL Normal [facility] Comment on above: Performed By: #### A FPMAT #### [facility] [address] [address] [address] Juan Antonio Ibarra AFP, Serum for Spina Bifida Report Normal [facility] Comment on above: Performed By: #### A FPMAT #### [facility] [address] [address] [address] Juan Antonio Ibarra Comment Comment Normal [facility] Comment on above: Result Comment: Melchor Chaudhary, Ph.D., [facility] Director . References: Available Upon Request. . Multiples Of Median Cutoffs For AFP Elevations Briscoe 2.5 Black 2.8 IDD 2.0 Twins 4.5 Abbreviation Definitions IDD - Insulin Dep Diabetes OSBR - Open Spina Bifida Risk . For further inquiries contact [facility] at [phone]. . This test was developed and its performance characteristics determined by [facility]. It has not been cleared or approved by the Food and Drug Administration. Performed By: #### A FPMAT #### [facility] [address] [address] [address] Juan Antonio Ren Age Collection Date 18.3 weeks Normal [facility] Comment on above: Performed By: #### A FPMAT #### [facility] [address] [address] [address] Juan Antonio Ibarra Gestat, Age Based on LMP Normal [facility] Comment on above: Result Comment: Reca lculations are not recommended when gestational dating by LMP and ultrasound are within 10 days. Performed By: #### A FPMAT #### [facility] [address] [place] [address] Dr. Juan Antonio Ibarra Insulin Dep Diabetes No Normal [facility] Comment on above: Performed By: #### A FPMAT #### [facility] [address] [place] [address] Dr. Juan Antonio Ibarra Interpretation Comment Normal [facility] Comment on above: Result Comment: Inte rpretation: [...] Customer Services to discuss available options. The [employer] recommends amniocentesis be offered to women age 35 and older. Performed By: #### A FPMAT #### [facility] [address] [place] [address] Dr. Juan Antonio Ibarra [age] Normal [facility] Comment on above: Performed By: #### A FPMAT #### [facility] [address] [place] [address] Dr. Juan Antonio Ibarra Multiple Gestation No Normal [facility] Comment on above: Performed By: #### A FPMAT #### [facility] [address] [address] [address] Juan Antonio Ibarra OSBR Risk 1 IN 3501 Normal [facility] Comment on above: Performed By: #### A FPMAT #### [facility] [address] [address] [address] Juan Antonio Ibarra PDF . Normal [facility] Comment on above: Performed By: #### A FPMAT #### [facility] [address] [address] [address] Juan Antonio Ibarra Race Normal [facility] Comment on above: Performed By: #### A FPMAT #### [facility] [address] [place] [address] Dr. Juan Antonio Ibarra Test Results: Negative Normal [facility] Comment on above: Performed By: #### A FPMAT #### [facility] [address] [place] [address] Dr. Juan Antonio Ibarra VAGINITIS/VAGINOSIS DNA PROB Abdirashid 02-08-2022 Bettye species Negative Normal Negative [facility] Comment on above: Performed By: #### A 1C #### [facility] [address] [place] [address] Dr. Juan Antonio Ibarra Gardnerella vaginalis Negative Normal Negative [facility] Comment on above: Performed By: #### A 1C #### [facility] [address] [place] [address] Dr. Juan Antonio Ibarra Trichomonas vaginalis Negative Normal Negative [facility] Comment on above: Performed By: #### A 1C #### [facility] [address] [place] [address] Dr. Juan Antonio Ibarra ABO and Rh group post transf usion reaction Nom (Bld)Ordered By: Eleazar Hess on 02-06-2022 Microscopic observation Gram stain Nom (Unsp spec) [facility] ED Clinical Summaryon 2021 ED Clinical Summary [facility] Emergency Department [address] [place] [id number] ED Clinical Summary PERSON INFORMATION Name: ZULEIKA WYATT Age: 31 Years Sex: FEMALE : 1990 MRN: Acct#: Visit Reason: Rash; Medical problem - minor; POSS BODY INFECTION Arrival: 01/29/2022 20:27:46 Discharge: 01/29/2022 21:17:00 LOS: 000 00:50 Check In: 01/29/2022 20:27:46 Checkout:01/29/2022 21:17:00 Address: [address] [place] [address] [address] [place] [address] PCP: Andie Stoddard PROVIDER INFORMATION Provider Role [...] follow-up with their family doctor or their GUEST EXPERIENCE CAPTAIN doctor. To this they agreed.. Health Status [...] Current Fr (more content not included)... Normal [facility] ED Note - Physicianon 2021 ED Note [...] follow-up with their family doctor or their GUEST EXPERIENCE CAPTAIN doctor. To this they agreed.. Health Status [...] Once. Impression and Plan Diagnosis Sebaceous cyst (WSD88-NM L72.3, Discharge, Medical) Plan Condition: Unchanged. Disposition: Discharged: time 01/29/2022 20:59:00. Prescriptions: Launch prescripti (more content not included)... Normal [facility] ED Patient Summaryon 022 ED Patient Summary [facility] - Emergency Department [address] [place] [address] PATIENT DISCHARGE INSTRUCTIONS Patient Information Name: ZULEIKA WYATT Age: 31 Years Date of : 1990 Reason For Visit: Rash; Medical problem - minor; POSS BODY INFECTION Arrival Time: 01/29/2022 20:27:46 Primary Care Physician: Andie Stoddard Attending Physician: Johnson Wright DO Comment: Visit Diagnosis: Diagnoses This Visit Medical problem - minor ([id number]) Rash ([id number]) Sebaceous cyst (L72.3) The Pharmacy at [facility] is open Saturday through Saturday from 9A [...] alcohol and/or drug addiction problems; contact the [facility] 07/01 Crisis Hotline -Text 4HGSX cv [id number]. If you received any narcotics, sedation, or [...] documents With: Address: When: Andie Wyatt [address] [id number] Business (1) Within 3 to 5 days Comments: home warm compresses clindamycin for antibioitic see your ob, or Dr Wyatt, for recheck apt ----at some point, this might have to be removed; this is not cancer, but a retention cyst of fat material; Return if very red and tender, or fever, vomiting worse You are welcomed to return anytime. Call Dr Wright, ext [phone], if any question patric WRIGHT< ER PHYSICIAN< H Karen [facility] Medication Information: The exam and treatment you received today in the [facility] Emergency Department were for an urgent problem and are not intended as complete care. It is important for you to follow up with a doctor, nurse practitioner, or physician?s library assistant for ongoing care. If your symptoms [...] so we can reach you if necessary. [facility] Emergency Department has provided you with a complete list of medications post discharge. Please inform your primary education professor/provider of your visit and for further instruction [...] Epidermoid Cyst (more content not included)... [facility] [facility] [place] TYPE AND SCREENon 12-30-2021 TYPE AND SCREEN Antibody Screen NEGA TIVE Blood Bank Notes performed by CV on 12/26/2021 ABO Rh Typing A Rh Positive Blood Bank Notes performed by on 12/26/2021 Normal [facility] Comment on above: Performed By: #### R UBIGG #### [facility] [address] [address] [address] Juan Antonio Ibarra HEP B SURFACE ANTIGEN SCREEN on 12-28-2021 HBsAg Screen Negative Normal Negative [facility] Comment on above: Performed By: #### H BSANS #### [facility] [address] [address] [address] Juan Antonio Ibarra HEPATITIS C VIRUS AB W/ REFL EX QUANTon 12-28-2021 HCV AB 0.2 s/co ratio Normal 0.0-0.9 [facility] Comment on above: Performed By: #### A 1C #### [facility] [address] [place] [address] Dr. Juan Antonio Ibarra Interpretation: Comment Normal [facility] Comment on above: Result Comment: Nega tive Not infected with HCV, unless recent infection is suspected or other evidence exists to indicate HCV infection. Performed By: #### A 1C #### [facility] [address] [place] [address] Dr. Juan Antonio Ibarra HIV 1 AND 2 WITH REFLEXon HIV Screen 4th Generation wRfx Non-Reactive Normal Non Reactive [facility] Comment on above: Result Comment: HIV Negative HIV-1/HIV-2 antibodies and HIV-1 p24 antigen were NOT detected. There is no laboratory evidence of HIV infection. Performed By: #### R UBIGG #### [facility] [address] [place] [address] Dr. Juan Antonio Ibarra RPR QUANTon 12-28-2021 Rapid Plasma Reagin, Quant Non-Reactive Normal NonRea<1:1 [facility] Comment on above: Result Comment: Plea se Note: This test does not meet current guidelines for screening and diagnosis of syphilis. This test is intended for following treatment response in patients being treated for syphilis infection. To screen for syphilis infection, a reflex cascade that includes both RPR and a treponema-specific assay should be utilized, such as Treponema pallidum (Syphilis) Screening [place] (184667) or Rapid Plasma Reagin (RPR) Test With Reflex to Quantitative RPR and Confirmatory Treponema pallidum Antibodies (231911). Performed By: #### R PRQ #### [facility] [address] [place] [address] Dr. Juan Antonio Ibarra RUBELLA AB IGGon 12-28-2021 Rubella Antibodies, IgG 3.48 index Normal Immune >0.99 [facility] Comment on above: Result Comment: Non- immune <0.90 Equivocal 0.90 - 0.99 Immune >0.99 Performed By: #### R UBIGG #### [facility] [address] [address] [address] Juan Antonio Ibarra CBC AUTO DIFFon 12-26-2021 BASO # 0.0 103/ul Normal 0.0-0.1 [facility] Comment on above: Performed By: #### A 1C #### [facility] [address] [address] [address] Juan Antonio Ibarra Basophils/100 WBC (Bld) 0.3 % Normal 0.2-2.0 [facility] Comment on above: Performed By: #### A 1C #### [facility] [address] [place] [address] Dr. Juan Antonio Ibarra EO # 0.0 103/ul Normal 0.0-0.7 [facility] Comment on above: Performed By: #### A 1C #### [facility] [address] [place] [address] Dr. Juan Antonio Ibarra Eosinophils/100 WBC (Bld) 0.4 % Critically low 0.9-7.0 [facility] Comment on above: Performed By: #### A 1C #### [facility] [address] [place] [address] Dr. Juan Antonio Ibarra Erythrocyte distribution width (RBC) [Ratio] 13.5 % Normal 11.0-15.0 [facility] Comment on above: Performed By: #### A 1C #### [facility] [address] [place] [address] Dr. Juan Antonio Ibarra Hematocrit (Bld) [Volume fraction] 38.9 % Normal 36.0-48.0 [facility] Comment on above: Performed By: #### A 1C #### [facility] [address] [place] [address] Dr. Juan Antonio Ibarra Hemoglobin (Bld) [Mass/Vol] 12.9 g/dL Normal 12.0-16.0 [facility] Comment on above: Performed By: #### A 1C #### [facility] [address] [place] [address] Dr. Juan Antonio Ibarra IG # 0.03 10e3/ul Normal 0.00-0.03 [facility] Comment on above: Performed By: #### A 1C #### [facility] [address] [place] [address] Dr. Juan Antonio Ibarra IG % 0.3 % Normal 0.0-0.5 [facility] Comment on above: Performed By: #### A 1C #### [facility] [address] [place] [address] Dr. Juan Antonio Ibarra LYMPH # 1.4 103/ul Normal 1.2-3.8 [facility] Comment on above: Performed By: #### A 1C #### [facility] [address] [place] [address] Dr. Juan Antonio Ibarra Lymphocytes/100 WBC (Bld) 14.5 % Critically low 20.5-60.0 [facility] Comment on above: Performed By: #### A 1C #### [facility] [address] [place] [address] Dr. Juan Antonio Ibarra MANUAL DIFF REQ NO Normal [facility] Comment on above: Performed By: #### A 1C #### [facility] [address] [place] [address] Dr. Juan Antonio Ibarra MCH (RBC) [Entitic mass] 29.6 pg Normal 26.7-34.0 [facility] Comment on above: Performed By: #### A 1C #### [facility] [address] [place] [address] Dr. Juan Antonio Ibarra MCHC (RBC) [Mass/Vol] 33.2 g/dL Normal 29.9-35.2 [facility] Comment on above: Performed By: #### A 1C #### [facility] [address] [place] [address] Dr. Juan Antonio Ibarra MCV (RBC) [Entitic vol] 89.2 fL Normal 81.0-99.0 [facility] Comment on above: Performed By: #### A 1C #### [facility] [address] [place] [address] Dr. Juan Antonio Ibarra MONO # 0.5 103/ul Normal 0.3-0.8 [facility] Comment on above: Performed By: #### A 1C #### [facility] [address] [place] [address] Dr. Juan Antonio Ibarra Monocytes/100 WBC (Bld) 4.6 % Normal 1.7-12.0 [facility] Comment on above: Performed By: #### A 1C #### [facility] [address] [place] [address] Dr. Juan Antonio Ibarra NEUT # 7.7 103/ul Critically high 1.4-6.5 [facility] Comment on above: Performed By: #### A 1C #### [facility] [address] [place] [address] Dr. Juan Antonio Ibarra Neutrophils/100 WBC (Bld) 79.9 % Critically high 43.0-75.0 [facility] Comment on above: Performed By: #### A 1C #### [facility] [address] [place] [address] Dr. Juan Antonio Ibarra Platelet mean volume (Bld) [Entitic vol] 10.0 fL Normal 9.5-13.5 [facility] Comment on above: Performed By: #### A 1C #### [facility] [address] [place] [address] Dr. Juan Antonio Ibarra PLT 194 103/ul Normal 150-450 [facility] Comment on above: Performed By: #### A 1C #### [facility] [address] [place] [address] Dr. Juan Antonio Ibarra RBC 4.36 106/ul Normal 4.20-5.40 [facility] Comment on above: Performed By: #### A 1C #### [facility] [address] [place] [address] Dr. Juan Antonio Ibarra WBC 9.7 103/ul Normal 4.0-11.0 [facility] Comment on above: Performed By: #### A 1C #### [facility] [address] [place] [address] Dr. Juan Antonio Ibarra CULTURE URINEon 12-26-2021 CULTURE URINE Culture Observations : LIGHT GROWTH OF MIXED GENITAL ALONSO. NO POTENTIAL PATHOGENS SEEN. Normal [facility] Comment on above: Performed By: #### R UBIGG #### [facility] [address] [address] [address] Juan Antonio Ibarra GLYCOHEMOGLOBIN A1Con 2021 ADA RECOMMENDATION SEE BELOW Normal [facility] Comment on above: Result Comment: ADA RECOMMENDED LIMIT 4.0 - 6.0 ADA THERAPEUTIC TARGET < 7.0 ACTION SUGGESTED > 7.0 Performed By: #### A 1C #### [facility] [address] [address] [address] Juan Antonio Ibarra Glucose [Mass/Vol] 114 mg/dL Normal [facility] Comment on above: Performed By: #### A 1C #### [facility] [address] [address] [address] Juan Antonio Ibarra HbA1c (Bld) [Mass fraction] 5.6 % Normal 4.5-6.2 [facility] Comment on above: Performed By: #### A 1C #### [facility] [address] [address] [address] Juan Antonio Ibarra US PREG TVon [...] by: FELECIA GOLDMAN Date: 2021-12-07 16:59 Normal [facility] Coding Summaryon 11-21-2021 Coding Summary HTMLBase 64 BbnazswkEIz1dDc+PGhlYWQ+PE 5AHHGuT79zsEOzhI5VC6nEWS2J OTRWAFIZMI4YNF3hfGB9ILvrS2 VybiAv QristYIrOP08ELa1MGL0eEklPX ehhF8qmCJwG0y6SfZdYM21iP06 BRmwQHAdMfK0WfCndhnqxJCt U0rqAeBdcXBiXog+PHRhYmxlIH uzVUTaXYcqOYNlUaFnfNpvIZ0j Kw8bNRJiNYWcvWfcxVWlIbCc a9lnMUIyMFmlZE0gxWpnO1LgaS O5IOPcg6i5Hx81cBG+PHRkIHN0 qDhbWQkep079NcNex4arBVP3 vMNlZZtpRGS1V12ul3E6QSUkIV NmLIS6kPI8eQ9nwHkqwhejA8Al vKZgBgT5MWW6dQOvnZ2hfYag glnmhM4dDlp+O90UWX9TOMQCJA 6PVzw4L7BqDdjdyES+ZF97XWEe AQ73wJTccRXlv2zcoUo1JaMn JKDxIVZ2kKgcWHspz3NwOPGkP5 3xoNOgf4N7MEYgqWegsOIbXkCs nHD6rR5mUBqqmcvrb8povvgd Kloia1vxay21qN98L24sILqnRF LjMGD6NKYkXNUbqRdtwd7gcB7n Ii8+YVczv6ync5kozDt6BxOt JBKqwxIdoWogZFW9m3NyMz95C2 MxxIkyu4AxOaf6mt30qSXjd8Z1 fIJ1ZPnsIDIvqL7zCOgjIbB4 KFBsYhYwtR40lPNbUSskKc1imQ rzoVrkHI2jZFYuhbgjJWQtkP7f ZXKigIGejPcmSL2uJAKztkrq l003SjJcPNX2JLFkyTEpH1RhvQ 8dBwNrSEErURGjJ9YpxLEkXNos Z553YUjpNwF8HYXnetRpL5Sn IOHasYlpHpY2l9Z2Ol4Wv4Aawx znVAW3KMoyWEJ0MjN4DaOqHdL4 L6CqScc2UQBhbFigLD0xZ6Fl FMWbpuwvdzqokFP3LLXdUNAghC 29tNRxONatWw5fz4C7i235MTWy YYRphG20Ag0xtKjmGFRloNFW kI7rehbcp9ndyhpaCvOmSRVcCN l0XQi6AMBoxRyhZtKoJAU8XtV8 CMT0lLEdnL6cyXvrgdmlcL3t Oyc+C46qmY4rOWY3PIE0pdvnAV HuptIwEZ24RN80H0YiYtuboQUh bGU+HILedrMjiDgyHB0mRmOu c3swh1JtOFoyN5VtKWQcPIiwQj k7ULGnJGX0nIL0vC6aPSYhMHwf w9Q8bER3W0PcumQvlu5pn6rh WKRvJWmxM24dwFQma7P2ASWvdJ N0AINvjTkqFyDtkU36Lho+PGNv eWels8QmXjsex7ohr6idtYq2 LsPmDUQpasXwsAkuXPS0w8EdXq 72G12kKOnmQADyMLIlRWEtTQTz sSyqef4wtI5rSj3+PGNvbCB3 eXK6fA8iRUPiGfN0GAbtP522It WurCIaVixju0lbb7ibtSw2IiCj HHYazaUswGapTDH9l8UnSz01 G64xDFnyVBWgKGVbPLIyIIKopY dril6ahI2xNx9+QD1km2fxiz46 dI60nQG+EQKnNRS2nErqYPhg DVJssW1kJOujTsZ0PECkXxDltP 53aHVmEGvaNf7etRyydBttGT9a ZNKyvczhc722FkDbj2hoURNh qZBlJAetHML0W73gp9R2IBVxCM QeQPK7zNI2yM1ysHalawxdgIGk iKihmzLriUmaNVbbFRpmG613 IHRvcDsnPlBhdGllbnQgTmFtZT l3X6KuYqh4WBOusWuvZD8gmPMu FPaiJs1meQaafIsnGX6hFSCu nytos293AjTuf8srWJOxrWCbQB fbZYF0B79gb9L8LPCfDHAdBZC3 mBS5vD6wpVvbzvdyuCBxcNgm naZrsIpwFOjjGYgqA514VZKiqA kaDfTjowCxXTXegZH3BW92LI07 pWMsm8A6lNB1W4AsDHXfsumb jkxtyEW3QIKpCTIsaZ78Ow8wpG yhPz1dZKYnIPG3JDVawDNuE4Ia eX7wJyPtTQScDNHtU6OrxRZl YMqiH364FYsaKpS9DCAuwsSgI2 BgUQHpdTkdGbT2i6Z3Ts5QP1X3 TV96MJ88vOBxx4U3tZX8I4Nr WPJgvqdsznlekET9YNJdMOBnsD 06Ot2ooIczDx3yOLNeEPW2AOIh uWZhX9SjkT8dNmXfPJIuHPRn S3QenBCpDYjnC023JJojTgX5AY BxtiXyO4AfSTRykMhpQnP3r9I2 Sj6LWJz4BA34GZ64nHGqa8M1 aFP5F8VjKIAmokkixgeecGP0UY UwDQWerL33Ma7cdVrlXe2lJFAs WXC7IYGdaLCkG0FbcD3yEqId RBLnKCYtK5UpeXMgMGewG671GC niQaG3MNJktoVgA8UyQARsoOft MsG1c8T9Yj4GZAPaRL60JZI3 eHM7QN81ZP78K2YeKekimWMbyJ U+PHRhYmxlIHdpZHRoPScxMDAl QfSysBhoPA0fOp6hSYNcOQUb rRqffETeQkTha6xfIZFqABfwTT 6fyAhqT6OphRD4ZLQvs6e8Cp79 T86rG0DwnZA+MPOjpOQ0zPN7 pT7sCzBhVeX0XEqlC121GtXmhX DeDggrz0ojv9dwpZm7UfN7VXQd avFobCdgWZY6t7IwXu02J50f IHdpZHRoPSIxNSUiIHZhbGlnbj 0bfK5aOw6+AKIfoLT7dEE4gQ9s WkRwQlS5JJrsD247LwMxmEXn Wqgze8equ0legXj2UfZhJRQmbq ProGasZHG2q9JyCf02R5DrmYki v6SnMcw5yq63pLWjn4G2qIT4 P0CaFHKvvlgnuKTtqXqhPO3fDN VqzgegCQPfcU2fBVQqP5k8KrWg MtS3NVbfP7CwpgC1WNKvqGUg CQlzHQC3R18je7Q9ZJMyXLCxUW A7xOG6xV7ukXptqbuamPCtwNcp nqYlzWlyLWowOJbdZ821OXUz aTbvKYEzyB9yZEUunBMjyXckGV 4wNTBpbjsnPlNURUlOLCBWSVJH NU4TUUYKUYB5K2SaVal2LYLb aHbaBB2zrXVjTIrxDs9ecScyjL xoMM3hOEIjikndSJQezH1rMFDt pPXmwJbpKR3tAQTubmrdw135 GkQfTHW4WQKssPPyV8JuaG4nOu JuTYViOKDcV0RvnSMfGUjaX019 PDvfAvX4JCNelsGmO3RfVQMx yOfdGuK1s7K0Lj9dPQ3pAL1jDV fuEU12AY75sXBkf6N7wSJ1L7In MCHjfsrdubehiMP7CUDaGEKn qD69oMSoGXttXv9ax5F5i146SV GwMHGgbP20Uz8qjCqpWHOcrBKR oX8rlbtol5msajhbOhCnRAUd IVm8KZc7UVRmgHghNcXdMXD7Gq T4LAD0iGZpfM9ywYryrgijcI8y Oyc+KgpgJOBkxuC3K4HtFev5 RVGwgPkoTT4moVAoTZbsDb7auS mxkRnfBG0oYGTsumhbUNWfzC8b BJNovZJjdIbxIL3tOPOiqbgu d021NwBhIOK2VFPqwUYnN1KlrF 2dDcTuPVRfVLTqK8CniJFaAPpe E234LMezZuK7SOCjquEgL1Cx PLWjiXrrFeY0c1M5Kj8JDZ9EPB U0P9QtOlq6WTEwvEzxZY1kiIQu XIlgXi3vsOjjyNknDO8pDDIa qmxzSWSajB8eMEKbjRQatHzpHJ 2nUNZapvxcz490GqXnAOF3SKOs sFSiY7BxwY0pMjMdVIBkODIo O2JapQOzVLofC510JDquGtJ0UO VjigSpR0PjKLEtqXmxCyD4g7U9 Qx5QFRrjgVV+JI38ns68J9Xh JsbdQfm6QAIcWKP4jPF8rN6fPN DbLIhdc0W2sJU1K7JgskPkeg3n m8biSFOfXQdbG04mzJTgw3P5 FMVgjPT1SBZkwUqtFnWygA90Qp c+EKJrxLorg9MqSgzkm6bwt6uk iPu6SrSeKZJdmaLhhBnwOFU8 c4KjDl35G65oJVbaVFPjWRCsNA VeHIFzcJfapt0ymE1bTn8+PGNv sRZ4hHQ3nB9oEpLrCvL1EIie F502YoKqlWHqSbqwx5ssn7xikL q9JhRpPLUajzKabXtfLDW7q9Qd Dc58E3ZogKkge8YnAcz7jx76 fLJxy5R0aZK7S5LeUZFzlfjkrQ JbmTzgAR5rFEJbsaijCXRdnH1h XGEmO9b9RsMlKeX3YPyyP2Hj mvH2QWKvwRMqQEShzMZIfY7dci bbb2pffkhaIwJyXSImPSg0KOs5 SWBroJhsOiGsCXV4OhZ1FFT1 gTHufR8daDtvpkkmsX1aAin+UG f4f3gqgDJtZP5drBN7QU95AY14 lNKhl7Y2bSN6N9XnBSNrtwmw txbzxYA6AXAeXZWoaY98Nu2skG hzCw0yKMAtJGT5GNEbnKRzJ6Xo eN7pXiJdSCIqKTNnU8GfjLWk HOvgY418HDvaSqM8EEGnznXwL5 RbYLFtxGieEpO3j5U2Gz0FEA26 EW38KQ49fUBfm2G4fDV6U8Ms DIPjrwrrjpzqkQQ4MIAlHXPknF 83Gy1zxDztJh1bOXJkRUC5FXVs zCBmR3EdpM2vPdZpKPBoAFDh D6RwtSXcHEirU920LEplDrA4ZF NcesMoC5XhQYNvzSwhHkJ4c7O4 Df3VRx58FS29OH73yKMya4D2 aAU7E0RmHVMfvuccqqapeEV1PB FgQZQygO94Yg7kcMaaHv1oWBQd NNF2SRUwxFQmB7UnlP2gLsNt QELoUMBlA7NzhZEjLLpoJ424QT msTjG0VHEvftHfY0KiEKRkhClj CvH4d8B1Aa5XVWonmcv8Y2Lz PjwvdHI+AA54WVPaIG64fODbuG Gbc1nqzNu3PuJsMJMtOJH5hUks FGvth9NvLLLrV91snPUhe5Y8 IGN (more content not included)... Normal [facility] Coding Summary HTMLBase 64 DvjqzyyjGPt6dGh+PGhlYWQ+PE 8FJLZlY37uuTJsiF7GQ4cHWD7Z LLYVSOZEYW0GPT5tbGI6FEqcM5 VybiAv DyeiaWHwCF16LRb4QJN4bBynQK owmL8enLJjM7z7BqPzSU97qQ68 GDjzCOKtBkK6NkVrpmugfRXd H3hxPkVvwQOhAew+PHRhYmxlIH bhCZYcISprJNJcLaTwhTnuGO7t Dv7lRFBlRGZcgIgpcJWvXtSu m9aoQOPlBCxmGS0rkUpyB2TfjW J8WPRhb2t4Vt54eHR+PHRkIHN0 rQhlKOqoc881IpFzq7evZRF9 sVQqPKzjPTI9M51er9V6ZJHrDJ CaMII6vQT6pV2gjGbyvhjtS2Al yIBuKlK4NXQ5sVQgkU1hnYwr ivxgkT4bPfb+Y56UTR9GLRHQGZ 5COgb0K4IwLoyocGQ+LM03TALz RK96aYXshBPdv5scoUl2NoHl IVIsLEU7pOsbPKowv6YuYBCbT3 8ijWVki6F4YSWadGdmaGZyJfPl cQU4nR6sEBzbogqxp2gwiehu Fyvwq9kccc10sD40Z21pZCmyGP YiXIC2FMBbEPQjpMdioz7fpE1n Ii8+OOlxp3ple3egaOn8BtGh SGEjnxSocQolVJY5t8ZoNh53B0 RzuMooo7AiCis7tw32qRXud6I1 tLI3TJzwZJIyvE9lYMhmQaJ5 LFJsIcVgdM85jLSmMHwjDh4tcV iniOhaPG8nFXVnuriyRKKhqJ7b SXXhqSMxkMsvTF0kBCDffcqy p149IyJwGRL1PDYwmOHzI8JpqJ 0bXyFdCBNuGQMdY1LfjLRwZGan Z506HAvrHyM9FPKycjFjN4Ja EDIqmOamQzZ1l7U0Ys1Jt1Jzty pjRGV4VDqbTWM0YcT1VpYqUdL3 I8PqObo0WRUvfWdtIA2pL8Dg AEKbbfalrarjuAH9ENEcQKZjaZ 77aHBuJWtwHt6if0V7t191LURs DLIyzA28Zt9gySbfUDJcbKAZ xL3pppzhu6odwnmfKxYcZMHzWR v5MWy0LJCuaThmVwZmDHU2YcZ4 VCE8jRXqzI7owOpcssofsH7t Oyc+K00dsS3tLYR4HNR5mclqXR BdyfIwJC30BH09N9TzVwcubLCk bGU+UNSazrIoaIpuAV4wFkIq m0jjg6QrVAlmK8LfQHYiDTyxRx a1FTZjXIE2qOW9oH8jGLNcMGum o0R4qKI1L9AexcVfvs8df6du VZZoTDwsR05maABiu2G9FVJulE J3XCCvwPvnVfQsgP56Vya+PGNv lCobt1ZkCjcym4nfz1mmpFl1 RaFfUDYyvhZntQneEPA0t5EcJq 34G58pGAjrNDVgADNeFZMiUSOc yEzfia6ubA0kSq2+PGNvbCB3 vDA6nO0eMJQlZhX3UBujN948Ya ZahIKvPnggn9uxh6nyuVi6SmTb YZOrnwQyeKnwAUK5h3PrNd26 S39vVIyrJDHcLUOxGUEjTZMioV txlw3dxG2hTn9+AJ8nq8tvlx44 gM98nBC+ZAMePNJ2dKmfVCmz QXCvxL4fAIphOpK0WTLuYeXbdD 92mYOiVQpmYz2drVmunDtzHZ0f WEMzwfktw821RvJaq4twTBTq eKXfJJajEME3J52ul8N7ALWfWX ZrJTC1lYZ7nM8ckUtvpohnmRQb xAojzgHohSsrLXpqTJagO001 IHRvcDsnPlBhdGllbnQgTmFtZT u9B2BpFgg8JRZbyDzfKW8wuFIu CRltWb7ceMakgDtzNN3iGGUt igovz598RvPmo7mtUZSxfHVgEV dhAYG3C19yq9V3AMKoRHQaRYD9 pND0nD1pxPjxnayfuURfgOfp qsQrfIboUSlrMLzzW519ISKaiN tpGrBevqLsELCwsIB2ZC18LC05 wTPzo5B6hBI1X7MuWCXzvzyk uqhgjJG8WPMtMMSslS45Hn6osP lhNt1bHOMoPOD9MRLmaOOiA0Hd nG4mXkXtLODiRFFgH6JiqPXb RLhbN252URwhMgT0ILJjyxPuK7 ZaZWPihGjjVbD3e6U6Zd9KC1R7 BF12ZD05gCDrj4T9pQE1J5Bx WNSmncetebeszWY3CRJjQVMzzP 74To5fkCnmJn6aTKBxSGZ2GKVh qRGjI3IdgY5kWnSbBRThWCOs I4SulVVkUVukK457BUcsGnN7QG DgbrZyJ0CqAQHfvUenXqG5f8E9 Az7YCTk5HF27PG77mAMzy5U4 pEM2L6EtEDKncixrbaxmwGS3BQ MvOQUctD10Ko4amYeyWr3kOGMp BIE6ZJOnuFKrJ9XelG0xRsHc XWVmHGXxZ8MvyQZhAEhmI435KJ zkEnR8LNBhvaDdK7AgCCQjsLft LgQ9v7R8Bt2UBXPxII35TGI7 jSO3AV41IU76Q6NlZrygcVAzzN U+PHRhYmxlIHdpZHRoPScxMDAl CgUarWjsLB2xAx7xRWUaKIVi vXogrQYhOcQyv5wzRKRrPZqdSN 6sxCspB8ZavRJ7JAYep2k8Pr31 D44uW0OkzNH+VAInaJY5sYN6 mJ4eGiOrUxS1PYbaV595JaYjpY CwAnbfw8tev2zczJp5RgP7MNJg ogUbmFceNFV1t9OmJk43D17o IHdpZHRoPSIxNSUiIHZhbGlnbj 2bxV4fNs7+IOJoaQZ1uZN4kY8n DyTgRaM5XOayP019EtKxjNEe Yypqo7uve6lquPv8GfMxGBJhtw KlaMefSGX0a8JcSw27S5MdqBpz i8TkXmp3fb33mEZeg4A4bYS0 C4AyOYQstggdhPZhgBbtNH4nBF SyoyinTSGlcY8rFEReH8t2NtDa EgZ6UXcrS2BggcE9GCWjpAKh RSviDUT3M73by3T5PJPoSOKnFT P8lTW4rV2vlCvfliajqBWjhWqz weXphYzwFZghQDcdB016DJMs cJtxYFAywH4eUVVtcSGjxWwkRK 4wNTBpbjsnPlNURUlOLCBWSVJH KN6GTKTMNKK1X9RgTub7GVAp lBpqXR2jsSMfCGbcPf7wxVxtnB kyYJ6fMHFdpvhmEPApgT4yOPYz aDAedKmdUU0mIGLzntakq157 WmJgLUZ8AZJqqMSdQ0FnsB1wRb HjTPJwWNTvO6IpfHGkIPikX098 IPbwXwN4DZYiyaNkU8BeWJGv oFxcGnE1k5T0Xa9mTD1iAF0eKN ykUO01IK79aFRqi4Z2oAM6X6Xd OBTgkpgctewjfZA3BUCrQVHp qR70vQNqGXlrCk8sl4W1q500RG RdKHZnxP08Ns2rgVyaBCFbhAND jK1xvvrwd6melzzcDaLdTTUk GQv5KSk3HZKpiCqtKjSkUKM2Fz X0PNF1nDGriD0lfHzchjnclR0r Oyc+EqadOASnxqN3O5IvWlg3 OLHasHpsOD9qyVFpMHskZu8atR sbwDehTU6uXXIztpoyGYGwzW8j CQHqmOCzxRqyZA4sDPTuesek f255UdPjWAU0OVAdmNShD1QkoQ 7wXfAtHWHsXZKzH4TanFJwXRiy G137OGltPuO3TXHwkxNmW7Yb YLNiqPzmKnK6v4E7Cn3DLL2RSU B9K2XzEyv9MJJdrHftCW7gmBUc IAbbRk1uyHabfTwyXE4pDTJe mwtrGKXnyZ1wHMZnoZAeuStrZU 0dVGJdbokyh543SqRbCSG8EONe mKEoG6DvhA9bJkPaBBKwVIDo L0NfmODwQVtgO505WGiqCrO4CM VyohTlZ7YfHVLsdCxaSyO7u7Q4 Es8NcXAhM6XqO8g0X7BsEbge dHI+RJ01HVCuVF44lQTnfVJko7 rweXh8UdIgVSYnUOJ4uIrpTCxy g4OyJPRsF56xfUHws3A3PHFw sOcqgWOvPpCvzZW9hG4dAPcspn cbn1lkmuqzDpcbe1wecn34fZ72 A99aDWqcKOFmPAAlPDGaKLNx zXcexy6zbZ6zUf4+OPVsvPE5bA L5gI9mGnNkIoX8POdbM157DwGu wYXpDozcm7xnb8vxwGr4VxOg UKSjdzByrKbhXMT3c5TsTs78A7 9sIHdpZHRoPSIyMCUiIHZhbGln uz6cvI7gWj6+EF9vh3draa61 nZ11kOW+VKElLUE5qRllXKzhPJ LwyH5pTUctDdC5FFGhOfKmeZ50 iMWqKJsgZb2sdPjanNdvJF4g ARRfqxakr403FwOne8kfFBRpeZ OuNWuhAWO8D83hz9I5YVExPDFg TNJ2zIU7gU5doUblraeflDNs mCcejoBfnBgnKCovFBjcD343FB ZpgFmdTbWftUMnS6ksnjKDLJ2k OjwvdGQ+ZXUjNID7tKwvWPac RUPubM1jQSAgH6y1YaUjKdC0MF zfG1JgxaR1HVPzrAQhJPGojYVR lQ5mdgfbd7feqhqaJmGrHUBe CKz0ODy0MVGyvTqfWyNtGII1Ed O0SAP9iXXwkK8zbQdzjfaetN3t Oyc+RklOOjwvdGQ+PHRkIHN0 sWzgQKftYGFxgZ5rQPIzK1o4Bm ZrXcH7IFxgR6YqzkN4VESyuUIz PTCvvPTTeH4wjxxfk1irxldg KeEaRFXeMXg3PSp2EEYpxNaiUc ThVKO7BkG9HKL6eWYimI3kbYax seranP0vJzc+TVJOOjwvdGQ+ WEBnXBE6eEuqBJuvBZRlsC8eZG OlI4m4ViXsBoK9BGofV1UixhH8 RQXfqQYwMVUxiHGDaM7xkkha d4ubjegfKuCyPFVrYQi2OLa7AU OwbVwxHdCcHVT1GyM5MUS9qMMb qY4xiRasjhcniX2qCvl+UGF5 LMT7DN48LO39N9NwTolbiMWpaC U+PHRhYmxlIHdpZHRoPScxMDAl RoZhyVkcQF7sBe8tECMxENOj bGx (more content not included)... Normal [facility] ED Clinical Summaryon 2021 ED Clinical Summary [facility] - Emergency Department [address] [place] [address] ED Clinical Summary PERSON INFORMATION Name: ZULEIKA WYATT Age: 31 Years Sex: FEMALE : 1990 MRN: Acct#: Visit Reason: Rib/trunk pain-swelling; ABD PAIN Arrival: 11/13/2021 16:30:24 Discharge: 11/13/2021 18:01:00 LOS: 000 01:31 Check In: 11/13/2021 16:30:24 Checkout:11/13/2021 18:01:00 Address: [address] [place] [address] [address] [facility] [address] PCP: Andie Stoddard PROVIDER INFORMATION Provider Role [...] Instructions: Hypertension, Adult Follow-Up: With: Address: When: DIANALANEY [address] [place] [address] Within 1 to 2 days [...] results be sent to Dr. Ortiz, your GUEST EXPERIENCE CAPTAIN physician. She will contact his office tomorrow [...] Patient/family/caregiver verbalizes understanding of instructions given Comment: [facility] ED Note-Nursingon 11-13-2021 ED Note-Nursing pt [...] 6 with steady gait and no assistance. [facility] ED Patient Summaryon 022 ED Patient Summary [facility] - Emergency Department [address] [place] [address] PATIENT DISCHARGE INSTRUCTIONS Patient Information Name: ZULEIKA WYATT Age: 31 Years Date of : 1990 Reason For Visit: Rib/trunk pain-swelling; ABD PAIN Arrival Time: 11/13/2021 16:30:24 Primary Care Physician: Andie Stoddard Attending Physician: Gamaliel Wyman MD Comment: Visit Diagnosis: Diagnoses This Visit Elevated blood pressure reading (R03.0) History of abdominal pain (Z87.898) at early stage (Z34.90) Rib/trunk pain-swelling ([id number]) Prescription Information: If you have been given a prescription for narcotics, seek immediate medical attention if you have any difficulty breathing or any sudden status changes such as confusion and sleepiness. If you or anyone you know is experiencing suicidal thoughts, mental health, alcohol and/or drug addiction problems; contact the [facility] 07/01 Crisis Hotline -Text 4HHAY to 612228. If you received any narcotics, sedation, or [...] legal documents With: Address: When: CUONG ORTIZ [address] [place], [place] [id number] Within 1 to 2 days Comments: Diagnosis [...] results be sent to Dr. Ortiz, your GUEST EXPERIENCE CAPTAIN physician. She will contact his office tomorrow [...] you received today in the [facility] were for an urgent problem and are not intended as complete care. It is important for you to follow up with a doctor, nurse practitioner, or physician?s library assistant for ongoing care. If your symptoms [...] so we can reach you if necessary. [facility] Emergency Department has provided you with a complete list of medications post discharge. Please inform your primary education professor/provider of your visit and for further instruction [...] Temporal: 3 (more content not included)... Normal [facility] hCG Quantitativeon 2 hCG Quantitative 41881.0 mIU/mL High 0.0-0.6 [facility] Comment on above: Order Comment: Lucy whitney call or fax results to Dr. Ortiz's office Result Comment: Resu lt confirmed by dilution Post-Menopausal Reference Range is: 0.1-11.6 mIU/mL Performed By: #### [id number] #### [facility] (DEFAULT) [address] [place] [id number] Coding Summary.on 12-19-2018 Coding Summary. CODING DATE: 019 FINAL [facility] DSC STATUS: Left Against Medical Advice PAYOR: [...] Boykin Date Saved: 12/19/2018 10:35 am Normal [facility] ED Clinical Summaryon 2018 ED Clinical Summary (Inserted Image. Elena ble to display) [address] [address] ED Clinical Summary Person Information Name: ZULEIKA VILLALTA/[facility] Age: 28 Years : 1990 12:00 AM Sex: Female Language: PCP: Marital Status: Phone: [phone] Visit Id: Visit Reason: Test; MENSTRUAL PROBLEMS [...] 12/15/2018 5:58 PM 12/15/2018 5:58 PM ADDRESS: [address] [place], [place] [address]E [place] [id number] PHYS DOC NOTES: MEDICAL INFORMATION: Prescriptions Given: PATIENT EDUCATION INFORMATION: Instructions: Follow up: DIAGNOSIS: Normal [facility] ED Patient Education Noteon 12-15-2018 ED Patient Education Note Normal [facility] ED Patient Summaryon 019 ED Patient Summary (Inserted Image. Elena ble to display) [place] [id number] Patient Discharge Instructions Person Information Name: ZULEIKA VILLALTA Age: 28 Years Arrival Date: 12/15/2018 4:37 PM Discharge Diagnosis: Primary Care Physician: Provider Information Primary Provider: [employer] Lab Technician:None The exam and treatment you received in the Emergency Department were for an urgent problem and are not intended as complete care. It is important that you follow up with a doctor, nurse practitioner, or physician?s library assistant for ongoing care. If your symptoms [...] opioids can be used to help relieve imqfushi-hr-rehlik pain and are often prescribed following a [...] be struggling with addiction, tell your health rehab care assistant and ask for guidance or call [facility]S National Helpline at 8-987-684-DXKS. p Source: [place] Department of Health and Human Services/Center for Disease Control & Prevention [facility] Medications Given: Medication Dose Route No medications found. Medication Information: Comment: Pharmacy Information: Thank you for choosing [facility] Patient Education Materials: JADEN Jacome [place] , have received the following patient education materials/instructions and have verbalized understanding: Patient Education Materials: Follow-up Instructions: Prescriptions: Patient Signature __ Date Clinician/Nurse Signature Date 12/15/18 17:58:10 Normal [facility] Progress Note-Nurseon 2018 Progress Note-Nurse [...] to take care of her daughter. Normal [facility] U BetaHcg Qualon 12-15-2018 HCG.beta subunit (U) [Moles/Vol] Negative Normal [facility] Comment on above: Performed By: #### 2 [id number], [id number] #### [facility] [address] [place] [address] UA With Cult Reflexon 2018 Bacteria LM Ql (Urine sed) TRACE Normal Trace [facility] Comment on above: Performed By: #### 2 [id number], [id number] #### [facility] [address] [place] [address] Bilirubin Ql (U) Negative Normal Negative [facility] Comment on above: Performed By: #### 2 [id number], [id number] #### [facility] [address] [place] [address] Clarity (U) CLEAR Normal Clear [facility] Comment on above: Performed By: #### 2 [id number], [id number] #### [facility] [address] [place] [address] Color (U) YELLOW Normal Yellow [facility] Comment on above: Performed By: #### 2 [id number], [id number] #### [facility] [address] [place] [address] Epithelial cells.squamous LM.HPF (Urine sed) [#/Area] 0-2 Normal 0-2 [facility] Comment on above: Performed By: #### 2 [id number], [id number] #### [facility] [address] [place] [address] Glucose Test strip (U) [Mass/Vol] Negative Normal Negative [facility] Comment on above: Performed By: #### 2 [id number], [id number] #### [facility] [address] [place] [address] Hemoglobin Ql (U) Negative Normal Negative [facility] Comment on above: Performed By: #### 2 [id number], [id number] #### [facility] [address] [place] [address] Ketones (U) [Mass/Vol] Negative Normal Negative [facility] Comment on above: Performed By: #### 2 [id number], [id number] #### [facility] [address] [place] [address] [place].plasma/[place] .RBC (Bld) [Mass ratio] 0-3 Normal 0-3 [facility] Comment on above: Performed By: #### 2 7043036, [id number] #### [facility] [address] [place] [address] Nitrite Ql (U) Negative Normal Negative [facility] Comment on above: Performed By: #### 2 6753286, [id number] #### [facility] [address] [place] [address] pH (U) 6.5 [pH] 5.0-9.0 [facility] Comment on above: Performed By: #### 2 [id number], [id number] #### [facility] [address] [place] [address] Protein (U) [Mass/Vol] Negative Normal Negative [facility] Comment on above: Performed By: #### 2 [id number], [id number] #### [facility] [address] [place] [address] Specific gravity (U) [Rel density] 1.010 1.005-1.03 0 [facility] Comment on above: Performed By: #### 2 [id number], [id number] #### [facility] [address] [place] [address] UA Spec Desc Clean Catch Normal [facility] Comment on above: Performed By: #### 2 [id number], [id number] #### [facility] [address] [place] [address] Urobilinogen Qn (U) 0.2 {Pamela'U}/dL Normal 0.0-1.0 [facility] Comment on above: Performed By: #### 2 [id number], [id number] #### [facility] [address] [place] [address] WBC Auto Ql (U) Negative Normal Negative [facility] Comment on above: Performed By: #### 2 1293983, [id number] #### [facility] [address] [place] [address] WBC LM.HPF (Urine sed) [#/Area] 0-5 Normal 0-5 [facility] Comment on above: Performed By: #### 2 1136117, [id number] #### [facility] [address] [place] [address] Auto Diffon 12-12-2017 Basophils Auto #/vol (Bld) 0.1 E3/mcL Normal 0.0-0.2 [facility] Comment on above: Order Comment: Order Added by Discern Expert. Performed By: #### 2 199986 ####KADEN BairdRolPmrj[address] [place] [address] Basophils/100 WBC Auto (Bld) 0.9 % Normal 0.0-2.0 [facility] Comment on above: Order Comment: Order Added by Discern Expert. Performed By: #### 2 594760 ####KADEN BairdZxhQpth[address] [place] [address] Eos Absolute 0.0 E3/mcL Normal 0.0-0.7 [facility] Comment on above: Order Comment: Order Added by Discern Expert. Performed By: #### 2 934238 ####KADEN BairdHmfQmzu[address] [place] [address] Eosinophils/100 leukocytes 0.4 % Normal 0.0-11.0 [facility] Comment on above: Order Comment: Order Added by Discern Expert. Performed By: #### 2 284839 ####KADEN B[address]QkdBjng[address] [place] [address] Lymphocytes 1.4 E3/mcL Normal 1.2-3.4 [facility] Comment on above: Order Comment: Order Added by Discern Expert. Performed By: #### 2 316443 ####KADEN [address] [place] [address] Lymphocytes/100 leukocytes 16.6 % Low 20.0-55.0 [facility] Comment on above: Order Comment: Order Added by Discern Expert. Performed By: #### 2 718760 ####KADEN [address] [place] [address] [place] Absolute 0.5 E3/mcL Normal 0.0-0.7 [facility] Comment on above: Order Comment: Order Added by Discern Expert. Performed By: #### 2 330458 ####KADEN [address] [place] [address] Monocytes/100 leukocytes 5.5 % Normal 0.0-10.0 [facility] Comment on above: Order Comment: Order Added by Discern Expert. Performed By: #### 2 357694 ####KADEN [address] [place] [address] Neutro Absolute 6.7 E3/mcL High 1.4-6.5 [facility] Comment on above: Order Comment: Order Added by Discern Expert. Performed By: #### 2 239303 ####KADEN [address] [place] [address] Neutro Auto 76.6 % High 37.0-75.0 [facility] Comment on above: Order Comment: Order Added by Discern Expert. Performed By: #### 2 358212 ####KADEN [address] [place] [address] CBC w/ Auto Diffon 8 Erythrocyte distribution width Auto Ratio (RBC) 15.0 % High 11.5-14.5 [facility] Comment on above: Performed By: #### 2 293392 ####KADEN [address] [place] [address] Erythrocytes (RBC) 4.94 E6/mcL Normal 3.90-5.40 [facility] Comment on above: Performed By: #### 2 855074 ####KADEN [address] [place] [address] Hematocrit (HCT) 40.0 % Normal 36.0-48.0 [facility] Comment on above: Performed By: #### 2 205964 ####KADEN [address] [place] [address] Hemoglobin mass conc (Bld) 13.0 g/dL Normal 12.0-16.0 [facility] Comment on above: Performed By: #### 2 462470 ####KADEN [address]xcg[address] [place] [address] MCH 26.2 pg Low 27.0-31.0 [facility] Comment on above: Performed By: #### 2 093742 ####KADEN [address]Fknq[address] [place] [address] MCHC mass conc (RBC) 32.4 g/dL Low 33.0-37.0 [facility] Comment on above: Performed By: #### 2 926259 ####KADEN [address]Pral[address] [place] [address] MCV 81.0 fL Normal 78.0-100.0 [facility] Comment on above: Performed By: #### 2 537355 ####KADEN MomZhgo[address] [place] [id number] Platelet mean volume (PMV) 7.5 fL Normal 7.4-11.0 [facility] Comment on above: Performed By: #### 2 505779 ####KADEN RbmKqag9947 [place] [address]34305 Platelets 347 E3/mcL Normal 130-400 [facility] Comment on above: Performed By: #### 2 125224 ####KADEN BairdLmjImbs[address] [place] [address]34305 WBC (Leukocytes) 8.7 E3/mcL Normal 3.6-11.0 [facility] Comment on above: Performed By: #### 2 296450 ####KADEN BairdLlfFpjy8417 [place] 0934305 CMPon 12-12-2017 Alanine aminotransferase (ALT) 14 Int._Unit/L Normal 10-40 [facility] Comment on above: Performed By: #### 2 071951 ####KADEN [address] [place] [address] Albumin 3.8 g/dL Normal 3.2-5.0 [facility] Comment on above: Performed By: #### 2 978959 ####KADEN [address] [place] [address] Albumin/Globulin Ratio 1.0 {ratio} Low 1.1-1.9 [facility] Comment on above: Performed By: #### 2 207064 ####KADEN [address] [place] [address] Alk Phos 75 Int._Unit/L Normal 42-121 [facility] Comment on above: Performed By: #### 2 818486 ####KADEN [address] [place] [address] Aspartate aminotransferase (AST) 18 Int._Unit/L Normal 10-42 [facility] Comment on above: Performed By: #### 2 916620 ####KADEN [address] [place] [address] Bili Total 1.0 mg/dL Normal 0.2-1.0 [facility] Comment on above: Performed By: #### 2 526108 ####KADEN [address] [place] [address] BUN/Creatinine Ratio 12.5 ratio Normal 5.4-30.0 [facility] Comment on above: Performed By: #### 2 010406 ####KADEN [address] [place] [address] Creatinine 0.8 mg/dL Normal 0.6-1.3 [facility] Comment on above: Performed By: #### 2 657245 ####KADEN [address] [place] [address] Globulin 3.8 g/dL Normal 2.0-4.0 [facility] Comment on above: Performed By: #### 2 870900 ####KADEN [address] [place] [address] Protein 7.6 g/dL Normal 6.4-8.3 [facility] Comment on above: Performed By: #### 2 222318 ####KADEN [address] [place] [address] Urea nitrogen 10 mg/dL Normal 7-18 [facility] Comment on above: Performed By: #### 2 202926 ####KADEN [address] [place] [address] Calcium 9.3 mg/dL Normal 8.4-10.2 [facility] Comment on above: Performed By: #### 2 077846 ####KADEN [address] [place] [address] Chloride 105 mmol/L Normal 98-107 [facility] Comment on above: Performed By: #### 2 109792 ####KADEN [address] [place] [address] CO2 25.1 mmol/L Normal 24.0-30.0 [facility] Comment on above: Performed By: #### 2 361867 ####KADEN [address] [place] [address] Glucose mass conc 101 mg/dL High 70-99 [facility] Comment on above: Performed By: #### 2 850595 ####KADEN [address] [place] [address] Potassium molar conc 3.4 mmol/L Low 3.5-5.1 [facility] Comment on above: Performed By: #### 2 735637 ####KADEN [address] [place] [address] Sodium 140 mmol/L Normal 136-145 [facility] Comment on above: Performed By: #### 2 126697 ####KADEN [address] [place] [address] Lipase Levelon 12-12-2017 Lipase Lvl 30 U/L Normal 8-57 [facility] Comment on above: Performed By: #### 2 946553 ####KADEN [address] [place] [address] UA Completeon 12-12-2017 UA Blood 3+ Normal Negative [facility] Comment on above: Performed By: #### 2 969478 ####KADEN [address] [place] [address] UA Bacteria Trace Abnormal None [facility] Comment on above: Performed By: #### 2 620456 ####KADEN [address]Xotq[address] [place] [address] UA Clarity SltCloudy Abnormal Clear [facility] Comment on above: Performed By: #### 2 891508 ####KADEN [address]fbHqlu[address] [place] [address] UA Hyal Cast 0-2 Normal 0-2 [facility] Comment on above: Performed By: #### 2 036719 ####KADEN W[address]Jdvu[address] [place] [address] UA Leuk Est 3+ Abnormal Negative [facility] Comment on above: Performed By: #### 2 793154 ####KADEN WzdGwvd[address] [place] [address] UA Mucous Many Abnormal Trace [facility] Comment on above: Performed By: #### 2 860228 ####KADEN QrdGkce[address]19 [place] [address] UA Nitrite Negative Normal Negative [facility] Comment on above: Performed By: #### 2 700353 ####KADEN MhfEyvn[address] [place] [address] UA pH 5.0 Normal 4.6-8.0 [facility] Comment on above: Performed By: #### 2 202778 ####KADEN LazAjwb[address] [place] [address] UA Protein 1+ Abnormal Negative [facility] Comment on above: Performed By: #### 2 476105 ####KADEN OzsNiko[address] [place] [address] UA Spec Grav 1.026 Normal 1.003-1.03 0 [facility] Comment on above: Performed By: #### 2 664555 ####KADEN [address]mfNink[address] [place] [address] UA Squam Epithelial 0-5 Normal 0-5 [facility] Comment on above: Performed By: #### 2 741961 ####KADENMorelia [address]NyaGitl[address] [place] [address] UA Urobilinogen 2.0 mg/dL Abnormal [facility] Comment on above: Performed By: #### 2 142044 ####KADEN [address]KftXvhk[address] [place] [address] UA WBC >50 Abnormal 0-5 [facility] Comment on above: Performed By: #### 2 037505 ####KADEN [address]UthRljt[address] [place] [address] Urine, color Yellow Normal Yellow [facility] Comment on above: Performed By: #### 2 407396 ####KADEN [address]PtcFybu[address] [place] [address] Urine, erythrocytes 20-50 Abnormal 0-3 [facility] Comment on above: Performed By: #### 2 499211 ####KADEN [address] [place] [address] Urine, glucose Negative Normal Negative [facility] Comment on above: Performed By: #### 2 862667 ####KADEN [address] [place] [address] Urine, ketones presence Trace Normal [facility] Comment on above: Performed By: #### 2 454979 ####KADEN [address]IscLquf[address] [place] [address] Urine, urobilinogen Negative Normal Negative [facility] Comment on above: Performed By: #### 2 153784 ####KADEN BairdMadDsjg3649 [place] [address] eGFRon 12-12-2017 eGFR AA >60 Normal [facility] Comment on above: Order Comment: Order Added by Discern Expert. Performed By: #### 2 300893 ####KADEN BairdOqvMhdz1316 [place] [address] eGFR (non-black) mL/min/{1.73_m2} Normal [facility] Comment on above: Order Comment: Order Added by Discern Expert. Performed By: #### 2 178746 ####KADEN [address]XwjCklv[address]75 [place] [address] HISTORY PHYSICALon 8 HISTORY PHYSICAL HNO ID: [id number] thor: Clara ChaoeService: Maternal MedicineAuthor Type: PhysicianType: HANDPFiled: 12/02/2017 9:04 AMNote Text:STANDARD [facility] DOCUMENTDISCHARGE SUMMARYPatient Name: Zuleika Gtz Date: [...] in 4 weeks with provider.DO Debo Vanegas [facility] PROGRESSon 12-02-2017 PROGRESS HNO ID: [id number] thor: Marie Lema (Res) LendeService: ObstetricsAuthor Type: [...] with more than 50% of the total qurq-ao-vxddnldy of the visit in counseling / coordination of care. -------OBSTETRICSPOSTPARTU M PROGRESS NOTESERVICE DATE: December 02, 2017SERVICE TIME: 0545ASSESSMENT:27 year old female who is Day #2 status post Vaginal,Spontaneous Delivery delivery.1. Rh+/RI/Pumping/Girl2. Maternal Alcohol syndrome- has been consenting for care/guardianesince age 23.3. H/o maternal PDA- s/p repair as .4. Valvular insufficiency- Echo on 07/09/17 with EF 55%.5. H/o maternal clubfoot-s/p repair as infant6. H/o tobacco abuse7. Obesity- BMI 31.8. Routine PP Care9. D/c per attendingPLAN:Routine care.SUBJECTIVE:Patient has no current complaints. Tolerating PO intake. Urinating withoutdifficulty. Pain well controlled with current regimen. Lochia decreasing.Ambulating without difficulty.OBJECTIVE:PHYSI GEN EXAM:Heart: RR, S1, W5Hbiau: clear to auscultationAbdomen: Soft Bowel sounds present [...] SOCIAL WORKon 12-02-2017 SOCIAL WORK HNO ID: [id number] thor: Meredith France (Sw): Social WorkAuthor Type: Social WorkerType: Social WorkFiled: 12/02/2017 12:25 PMNote Text:SOCIAL WORK CONSULT NOTESERVICE DATE: 12/02/2017SERVICE TIME: 1015Referred by: Jose for visit:Maternal/Infant - adjustment to conditionLiving Arrangement: HomeLives With: PartnerFinancial Resources: DisabledPrimary Contact:Extended Emergency Contact Information DARRELL BRANCH [facility] Emergency Contact: No,ContactRelation: OtherSupportive: YesOther Important Patient [...] hospital. (FOBparents are Anamika Munoz of [address] [facility] , [facility]).Per pt and FOB, all needed baby supplies and equipment are at the [facility] and a nursery has been set up.Per pt, name of baby girl is Martha Branch.Pt states she is on SSI and WIC.Pt shares that she is in ongoing counseling at [facility] in [place] and has appointments 2 x per month.Discussed with pt and FOB signs and sx of depression; safe babysleep and discussed ways to deal with crying infant. Pt again states sheis going to rely on her support system.No additional issues identified at this time. Encouraged pt and FOB toutilize services through [facility]. Providedcontact information.Outcome/Recomm endations:Assistance through [facility] spent (minutes): 60SIGNATURE: CARLA Goncalves PATIENT NAME: Zuleika Hernandez: December 02, 2017 : 11:10 AM PAGER/CONTACT#: [facility] JERZYS INTRAOPotunde 12-01-2017 ANES INTRAOP HNO ID: [id number] thor: Terrance Lockhartervice: AnesthesiologyAuthor Type: Nurse AnesthetistType: Anesthesia IntraOpFiled: 12/01/2017 9:41 AMNote Text:ANALGESIA PROGRESS RECORDCATHETER REMOVAL/END OF CASESERVICE DATE: 12/01/2017REMOVAL DATE AND TIME: 11/30/2017, ELIVERY DATE AND TIME: 11/30/2017 at 5:49 PMCATHETER REMOVAL:Catheter Removal: See [facility]Miky Nursing noteSIGNATURE: Terrance Contreras APRN.CRNA PATIENT NAME: Zuleika Hernandez: December 01, 2017 : 9:40 AM PAGER/CONTACT #: [facility] ANES Keke 12-01-2017 ANES POST HNO ID: [id number] thor: Terrance MagañaHandle Machine Operator) JohanngService: AnesthesiologyAuthor Type: Nurse AnesthetistType: Anesthesia PostOpFiled: 12/01/2017 [...] by Anesthesia Service: NoneOther Remarks:SIGNATURE: Terrance Contreras APRN.TRACK AND FIELD COACH PATIENT NAME: Zuleika LambATE: December 01, 2017 : 9:42 AM PAGER/CONTACT #: [facility] PROGRESSon 12-01-2017 PROGRESS HNO ID: [id number] thor: Marie Lema (Res) LendeService: ObstetricsAuthor Type: ResidentType: Progress NotesFiled: 12/01/2017 6:42 AMNote Text: -------Attestation signed by Oksana Mason at 12/01/2017 8:47 AMPatient seen and examined by me and I agree with the residents assessment andplan. Likely discharge to home/bonding tomorrow.Oksana Amado MD ----OBSTETRICSPOSTPARTUM PROGRESS NOTESERVICE DATE: December 01, 2017SERVICE TIME: 06ASSESSMENT:27 year old female who is Day #1 status post Vaginal,Spontaneous Delivery delivery.1. Rh+/RI/Pumping/Girl2. Maternal Alcohol syndrome- has been consenting for care/guardianesince age 23.3. H/o maternal PDA- s/p repair as .4. Valvular insufficiency- Echo on 07/09/17 with EF 55%.5. H/o maternal clubfoot-s/p repair as infant6. H/o tobacco abuse7. Obesity- BMI 31.8. Routine PP Care9. D/c per attendingPLAN:Routine care.SUBJECTIVE:Patient has no current complaints. Tolerating PO intake. Urinating withoutdifficulty. Pain well controlled with current regimen. Lochia decreasing.Ambulating without difficulty.OBJECTIVE:PHYSI GEN EXAM:Heart: RR, S1, B8Vufnl: clear to auscultationAbdomen: Soft Bowel sounds present [...] 2017 ABO group Nom (Bld) A Normal [facility] Comment on above: Performed By: #### A JESSIE #### [place] [address] RH Type Positive Normal [facility] Comment on above: Performed By: #### A JESSIE #### [place] [address] ANES PREOPon 11-30-2017 ANES PREOP HNO ID: [id number] thor: Aaron (Chiara) EarleyService: AnesthesiologyAuthor Type: Nurse AnesthetistType: Anesthesia PreOpFiled: [...] of Sleep Apnea: DeniesHematocritDate Value Ref Range Geqfvw1411/30/2017 32.3 (L) 34.1 - 44.9 % Final Platelet CountDate Value Ref Range Wzeeqe0211/30/2017 193 182 - 369 thou/cmm Final Vitals: 1 0 11/30/1810BP: 142/75 138/81Pulse: 75 81Resp:Temp: 36.6 ?C (97.9 [...] as needed. Disp: Rfl:Inpatient medications reviewed in [facility].I have interviewed and examined the patient. I have reviewed the medicalrecord , pertinent consults and/or the pre-anesthesia evaluation,pertinent labs, and test results.Significant changes in the patient's condition since the History andPhysical, not otherwise documented in primary service progress notes: [facility] contains updated information obtained within 48 hours ofSurgery/Procedure.SIGNAT URE: Hema Cuellar APRN.TRACK AND FIELD COACH PATIENT NAME: Zuleika LambATE: November 30, 2017 : 12:13 PM : 1990 Normal [facility] Auto Diffon 11-30-2017 Basophils Auto #/vol (Bld) 0.1 E3/mcL Normal 0.0-0.2 [facility] Comment on above: Order Comment: Order Added by Discern Expert. Performed By: #### 2 [id number] ####KADEN BairdUifQjbx[address] [place] [address] Basophils/100 WBC Auto (Bld) 0.9 % Normal 0.0-2.0 [facility] Comment on above: Order Comment: Order Added by Discern Expert. Performed By: #### 2 568548 ####KADEN [address] [place] [address] Eos Absolute 0.1 E3/mcL Normal 0.0-0.7 [facility] Comment on above: Order Comment: Order Added by Discern Expert. Performed By: #### 2 063620 ####KADEN [address] [place] [address] Eosinophils/100 leukocytes 1.0 % Normal 0.0-11.0 [facility] Comment on above: Order Comment: Order Added by Discern Expert. Performed By: #### 2 348101 ####KADEN [address] [place] [address] Lymphocytes 2.0 E3/mcL Normal 1.2-3.4 [facility] Comment on above: Order Comment: Order Added by Discern Expert. Performed By: #### 2 894156 ####KADEN BairdMpjFkir[address] [place] [address] Lymphocytes/100 leukocytes 22.1 % Normal 20.0-55.0 [facility] Comment on above: Order Comment: Order Added by Discern Expert. Performed By: #### 2 488586 ####KADEN BairdKigYuwz[address] [place] [address] [place] Absolute 0.7 E3/mcL Normal 0.0-0.7 [facility] Comment on above: Order Comment: Order Added by Discern Expert. Performed By: #### 2 458359 ####KADEN [address] [place] [address] Monocytes/100 leukocytes 7.5 % Normal 0.0-10.0 [facility] Comment on above: Order Comment: Order Added by Discern Expert. Performed By: #### 2 246912 ####KADEN [address] [place] [address] Neutro Absolute 6.1 E3/mcL Normal 1.4-6.5 [facility] Comment on above: Order Comment: Order Added by Discern Expert. Performed By: #### 2 964000 ####KADEN [address] [place] [address] Neutro Auto 68.5 % Normal 37.0-75.0 [facility] Comment on above: Order Comment: Order Added by Discern Expert. Performed By: #### 2 261439 ####KADEN [address] [place] [address] CBC w/ Auto Diffon 8 Erythrocyte distribution width Auto Ratio (RBC) 14.3 % Normal 11.5-14.5 [facility] Comment on above: Performed By: #### 2 [id number] ####KADEN [address] [place] [address] Erythrocytes (RBC) 4.34 E6/mcL Normal 3.90-5.40 [facility] Comment on above: Performed By: #### 2 [id number] ####KADEN [address] [place] [address] Hematocrit (HCT) 35.1 % Low 36.0-48.0 [facility] Comment on above: Performed By: #### 2 357514 ####KADEN [address] [place] [address] Hemoglobin mass conc (Bld) 11.6 g/dL Low 12.0-16.0 [facility] Comment on above: Performed By: #### 2 [id number] ####KADEN [address] [place] [address] MCH 26.6 pg Low 27.0-31.0 [facility] Comment on above: Performed By: #### 2 654149 ####KADENMorelia [address] [place] [address] MCHC mass conc (RBC) 32.9 g/dL Low 33.0-37.0 [facility] Comment on above: Performed By: #### 2 723762 ####KADEN [address] [place] [address] MCV 80.9 fL Normal 78.0-100.0 [facility] Comment on above: Performed By: #### 2 568625 ####KADEN [address] [place] [address] Platelet mean volume (PMV) 7.6 fL Normal 7.4-11.0 [facility] Comment on above: Performed By: #### 2 211363 ####KADEN [address] [place] [address] Platelets 217 E3/mcL Normal 130-400 [facility] Comment on above: Performed By: #### 2 218586 ####KADEN [address] [place] [address] WBC (Leukocytes) 8.8 E3/mcL Normal 3.6-11.0 [facility] Comment on above: Performed By: #### 2 791943 ####KADEN [address] [place] [address] CONSULTon 11-30-2017 CONSULT HNO ID: [id number] thor: Marie Lema (Res) LendeService: ObstetricsAuthor Type: [...] options.Patient received written information about post-delivery contraceptionoptions.[facility]ISTORY REVIEWPAST MEDICAL HISTORYDiagnosis Date- Club foot- alcohol [...] T0 L0 SAB1 TAB0 Ectopic0 Multiple0 Live Qflkhc1Emgy of Baby 1: Not recorded Date: 2014 [...] pupils equal, no thyromegalyLungs: clearHeart: RR, S1, N2Zkveyst: soft, nontender, no massesUterus: soft, NTExtremities: 1+ edemaDTRs: 2+FHT: bpmSt Spec Exam: (not done)CERVICAL EXAM:Dilation: 1 (11/30/17 0648 : Marie Lema (Res) Lenddevonte) cmStation: -2 (11/30/1748 : Marie Lema (Res) Lenddevonte)Effacement: 60 (11/30/1748 : Marie Lema (Res) Lenddevonte) %Position:Presentation: Pelvimetry: Pelvimetry clinically assessed as adequateFETAL MONITORING/ASSESSMENT:Base line: 140sVariability: ModerateAccelerations: Acelerations presentDecelerations: AbsentContractions: Rare contractionsFrequency: rareNST Interpretation: IFHR Category:NST Comments:EFW: 6.5 based on clinical assessment.Ultrasound:Posi tion: VertexPlacenta: AnteriorCardiac Motion: PresentAmniotic Fluid: No 2X2 pocket notedDiagnostic tests reviewed for today's visit:Assessment/Plan27 year old EGA:39w0d. Is admitted for augmentation for PROM1. GBS-2. Pit per protocol3. Epi prn4. [place]5. [place] [address]. anomalies- prominent cisterna magna, bilateral periventrcularnodular heterotopia, [...] EF 55%.10. H/o maternal clubfoot-s/p repair as izwfgc67. H/o tobacco abuseSigned out to [facility] for deliveryDr. Amado reviewed with Dr. MaldonadoSIGNATURE: Marie Hassan DO PATIENT NAME: Zuleika LambATE: November 30, 2017 : 6:49 AM PAGER/CONTACT #: [phone] Normal [facility] HISTORY PHYSICALon 8 HISTORY PHYSICAL HNO ID: [id number] thor: Marie Lema (Res) JabiereService: ObstetricsAuthor Type: [...] T0 L0 SAB1 TAB0 Ectopic0 Multiple0 Live Odvegz4Xxbo of Baby 1: Not recorded Date: 2014 [...] pupils equal, no thyromegalyLungs: clearHeart: RR, S1, V4Mgfucta: soft, nontender, no massesUterus: soft, NTExtremities: 1+ edemaDTRs: 2+FHT: bpmSt Spec Exam: (not done)CERVICAL EXAM:Dilation: 1 (11/30/17 0648 : Marie Lema (Res) Lende) cmStation: -2 (11/30/17 0648 : Marie Lema (Res) Lenddevonte)Effacement: 60 (11/30/17 0648 : Marie Lema (Res) Lenddevonte) %Position:Presentation: Pelvimetry: Pelvimetry clinically assessed as adequateFETAL MONITORING/ASSESSMENT:Base line: 140sVariability: ModerateAccelerations: Acelerations presentDecelerations: AbsentContractions: Rare contractionsFrequency: rareNST Interpretation: IFHR Category:NST Comments:EFW: 6.5 based on clinical assessment.Ultrasound:Posi tion: VertexPlacenta: AnteriorCardiac Motion: PresentAmniotic Fluid: No 2X2 pocket notedDiagnostic tests reviewed for today's visit:Assessment/Plan27 year old EGA:39w0d. Is admitted for augmentation for PROM1. GBS-2. Pit per protocol3. Epi prn4. FB soon5. [place] [address]. anomalies- prominent cisterna magna, bilateral periventrcularnodular heterotopia, [...] as . H/o tobacco abuseSigned out to [facility] for deliveryD/w Dr. AmadoSIGNATURE: Marie Hassan DO PATIENT NAME: Zuleika LambATE: November 30, 2017 : 6:49 AM PAGER/CONTACT #: [phone] Normal [facility] Hemogramon 11-30-2017 Erythrocyte distribution width Ratio (RBC) 13.6 % Normal 11.7-14.4 [facility] Comment on above: Performed By: #### C BC1 #### [facility] [address] [place], [place] [address] Hematocrit Volume Fraction (Bld) 32.3 % Low 34.1-44.9 [facility] Comment on above: Performed By: #### C BC1 #### [facility] [address] [place] [address] Hemoglobin mass conc (Bld) 10.4 g/dL Low 11.2-15.7 [facility] Comment on above: Performed By: #### C BC1 #### [facility] [address] [place] [address] MCH Entitic mass (RBC) 26.4 pg Normal 25.6-32.2 [facility] Comment on above: Performed By: #### C BC1 #### [facility] [address] [place] [address] MCHC mass conc (RBC) 32.2 % Normal 31.6-34.8 [facility] Comment on above: Performed By: #### C BC1 #### [facility] [address] [place] [address] MCV Entitic volume (RBC) 82.0 fL Normal 79.4-94.8 [facility] Comment on above: Performed By: #### C BC1 #### [facility] [address] [place] [address] Platelet mean volume Entitic volume (Bld) 9.9 fL Normal 9.4-12.3 [facility] Comment on above: Performed By: #### C BC1 #### [facility] [address] [place] [address] Platelets #/vol (Bld) 193 thou/cmm Normal 182-369 [facility] Comment on above: Performed By: #### C BC1 #### [facility] [address] [place] [address] RBC #/vol (Bld) 3.94 mil/cmm Normal 3.93-5.22 [facility] Comment on above: Performed By: #### C BC1 #### [facility] [address] [place] [address] RDW SD 40.6 fl Normal 36.4-46.3 [facility] Comment on above: Performed By: #### C BC1 #### [place] [address] WBC #/vol (Bld) 9.85 thou/cmm Normal 3.98-10.04 [facility] Comment on above: Performed By: #### C BC1 #### [facility] [address] [place] [address] LD NOTEon 11-30-2017 LD NOTE HNO ID: [id number] thor: Marie Lema (Res) LendeService: ObstetricsAuthor Type: ResidentType: LANDD Delivery NoteFiled: 11/30/2017 6:19 PMNote Text: -------Attestation signed by Serenity Maldonado MD at 12/01/2017 6:04 PMI saw and evaluated the patient. I reviewed the resident's note and agree,except that patient seen by [facility] (patient has FAS, fetus with multipleanomlaies) service, consult placed to [facility] for management of labor AND delivery.Essential primip presented at 39w with PROM, had Pugh balloon AND Pitocin foraugmentaion. Late in labor noted tachycardia that improved with IVFB ANDTylenol (mother rico had elevated temp but felt warm). [facility] to awaiting NICU team for evaluation (was allowed tohave delivery to abdomen AND 30 sec delay for cord clamping). Pushed well AND hadSVD of a viable female infant (APGARS 8,9, weight of 3200g/7#1oz) over intactperineum. Uterus slightly boggy after delivery, responded to massage AND Pitocininfusion, EBL ~500cc.Serenity Maldonado MD ----OBSTETRICSDELIVERY SUMMARY - VAGINAL DELIVERYGestational Age at Delivery: 40e8tOovvgrq Date: 11/30/2017Service Time: 1800Keegan, Bg Zuleika Dillard [[id number]]Labor EventsRupture Date: 11/30/17Rupture Time: 224Rupture Type: PROMFluid Color: ClearInduction: Yes Induction Method: OxytocinEpisiotomy/Lacerat ion:Episiotomy: NoneLacerations: NoneEstimated Blood Loss (mL):Estimated Blood Loss (mL): 500Date and Time of :Date of : 11/30/17Time of : 1748Delivery Information:Primary Reason for Delivery : Ruptured MembranesAdditional Clinicial Indicator(s) for delivery: N/ADelivery type: Vaginal, Spontaneous DeliveryPresentation: VertexShoulder Dystocia Present: NoCord:Complications: NoneDelayed Cord Clamping: YesPlacenta:Delivered: 11/30/2017 5:55 PMRemoval: SpontaneousAppearance: IntactAnesthesia:Method: EpiduralMeasurements, Apgars:Code Uziel Called: YesType of Brice Triplett Team Needed: [...] Marie Hassan DO PATIENT NAME: Zuleika Dillard DavidbethnDATE: November 30, 2017 : 6:15 PM Normal [facility] NURSING PROGon 11-30-2017 NURSING PROG HNO ID: [id number] thor: Marguerite (Rn) ANEUDY Albarranervice: (none)Author Type: Registered NurseType: Nursing Progress NoteFiled: 11/30/2017 7:06 PMNote Text: INTRODUCED SELF TO PATIENT AND SUPPORT PERSONS. PLAN OF CARE DISCUSSED.ASSESSMENT PERFORMED. PATIENT DENIES COMPLAINTS. Normal [facility] NURSING PROG HNO ID: [id number] thor: Darcie (Rn) ANEUDY Landeroservice: NursingAuthor Type: Registered NurseType: Nursing Progress NoteFiled: 11/30/2017 10:03 AMNote Text:Patient up to shower for comfort. Boyfriend at side. On telemetrymonitors. RN remains in room. FHR difficult to maintain continuoustracing Normal [facility] NURSING PROG HNO ID: [id number] Author: Norah (Rn) KARRI Eastman Service: Nursing Author Type: Registered Nurse Type: Nursing Progress Note Filed: 11/30/2017 7:18 AM Note Text: Report given to Darcie DURAN and care transferred at this time. Normal [facility] PROCEDUREon 11-30-2017 PROCEDURE HNO ID: [id number] thor: Aaron (Handle Machine Operator) EarleyService: AnesthesiologyAuthor Type: Nurse AnesthetistType: ProceduresFiled: 11/30/2017 [...] Catheter in Epidural Space: 5 cmInterspace: approximately L2-Y3Hesbza of Attempts: 1Wet Tap Complication: NoDural Puncture [...] nurses' documentation for additional vitals.SIGNATURE: Hema Cuellar APRN.TRACK AND FIELD COACH PATIENT NAME: Zuleika LambATE: November 30, 2017 : 12:27 PM PAGER/CONTACT #: [facility] PROGRESSon 11-30-2017 PROGRESS HNO ID: [id number] thor: Marie Lema (Res) LendeService: ObstetricsAuthor Type: ResidentType: Progress NotesFiled: 11/30/2017 5:04 PMNote Text:UpdatePatient is pushing in the OR. Cat I FHRT with baseline around 160s. updated and in house.Franki Neri 2017 5:04 PM [facility] PROGRESS HNO ID: [id number] Author: Darcie (Rn) KARRI Landeros Service: Nursing Author Type: Registered Nurse Type: Progress Notes Filed: 11/30/2017 3:29 PM Note Text: Patient feeling pressure, cervical exam 9.5 cm. NICU notified. Patient feels warm, but temp 36.9. [facility] PROGRESS HNO ID: [id number] thor: Marie Lema (Res) JabiereService: ObstetricsAuthor Type: ResidentType: Progress NotesFiled: 11/30/2017 1:39 PMNote Text:OBSTETRICSINTRAPARTUM PROGRESS NOTESERVICE DATE: November 30, 2017SERVICE TIME: 1:35 PMSubjectivePatient with no complaints.ObjectiveLAST VITALS:Pulse BP Resp O2 Sat Temp Pain 78 122/63 18 100 % 36.7 ?C (98.1 ?F) 8/10PHYSICAL EXAM:CERVICAL EXAM:Last Exam Notes: Dilation: 5 (11/30/17 1309 : Yolanda (Res) Barbosa)Effacement (%): 80 (11/30/17 1309 : Yolanda (Res) Barbosa)Station: -2 (11/30/17 1309 : Yolanda (Giovanni Barbosa)Presentation: (not recorded)MEMBRANES:Status: Membrane Status: Premature (11/30/17 0853 : Darcie (Rn) KARRI Landeros)Rupture Date: 11/30/17 (11/30/17 0853 : [...] pt comfortable4. s/p FB5. [place] [address]. anomalies- prominent cisterna magna, bilateral periventrcularnodular heterotopia, [...] EF 55%.10. H/o maternal clubfoot-s/p repair as bdbxdo42. H/o tobacco abuse12. Cat II- Isolate late decelerations. Moderate variability. Continuingto make cervical change. Not on Cat II protocol.SIGNATURE: Marie Hassan DO PATIENT NAME: Zuleika LambATE: November 30, 2017 : 1:35 PM PAGER/CONTACT #: [phone] [facility] PROGRESS HNO ID: [id number] thor: Yolanda Shannon) Suzyervice: ObstetricsAuthor Type: ResidentType: Progress NotesFiled: 11/30/2017 [...] pt comfortable4. s/p FB5. [place] [address]. anomalies- prominent cisterna magna, bilateral periventrcularnodular heterotopia, [...] EF 55%.10. H/o maternal clubfoot-s/p repair as qezcgo78. H/o tobacco abuseSIGNATURE: Yolanda Barbosa DO PATIENT NAME: Zuleika LambATE: November 30, 2017 : 1:11 PM PAGER/CONTACT #: [phone] Normal [facility] PROGRESS HNO ID: [id number] thor: Yolanda (Joaquín) Suzyervice: ObstetricsAuthor Type: ResidentType: Progress NotesFiled: 11/30/2017 11:07 [...] -2 (11/30/17 0648 : Marie N (Res) Lenddevonte)Presentation: (not recorded)MEMBRANES:Status: Membrane Status: Premature (11/30/17 0853 [...] Pit per protocol3. [place] [address]. s/[place] [address]. anomalies- prominent cisterna magna, bilateral periventrcularnodular heterotopia, [...] EF 55%.10. H/o maternal clubfoot-s/p repair as tdscim97. H/o tobacco abuseSIGNATURE: Yolanda Barboas DO PATIENT NAME: Zuleika BecerrilnDATE: November 30, 2017 : 11:05 AM PAGER/CONTACT #: [phone] Normal [facility] PROGRESS HNO ID: [id number] Author: Darcie MagañaRn) KARRI Landeros Service: Nursing Author Type: Registered Nurse Type: Progress Notes Filed: 11/30/2017 10:35 AM Note Text: Unable to find labwork for chart. [facility] PROGRESS HNO ID: [id number] thor: Marie Lema (Res) JabiereService: ObstetricsAuthor Type: ResidentType: Progress NotesFiled: 11/30/2017 10:33 AMNote Text:OBSTETRICSINTRAPARTUM PROGRESS NOTESERVICE DATE: November 30, 2017SERVICE TIME: 10:31 AMSubjectivePatient with no complaints.ObjectiveLAST VITALS:Pulse BP Resp O2 Sat Temp Pain 75 142/75 18 100 % 36.6 ?C (97.9 ?F) 01/24PHYSICAL EXAM:CERVICAL EXAM:Last Exam Notes: Dilation: 1 (11/30/1748 : Marie Lema (Res) Lende)Effacement (%): 60 (11/30/1748 : Marie Lema (Res) Lende)Station: -2 (11/30/1748 : Marie Lema (Res) Lende)Presentation: (not recorded)MEMBRANES:Status: [...] Pit per protocol3. [place] [address]. [place] [address]. anomalies- prominent cisterna magna, bilateral periventrcularnodular heterotopia, [...] EF 55%.10. H/o maternal clubfoot-s/p repair as qsypop96. H/o tobacco abuse?SIGNATURE: Marie Hassan DO PATIENT NAME: Zuleika LambATE: November 30, 2017 : 10:31 AM PAGER/CONTACT #: [phone] [facility] PROGRESS HNO ID: [id number] thor: Darcie [place]) ANEUDY Landeroservice: NursingAuthor Type: Registered NurseType: Progress NotesFiled: 11/30/2017 10:13 AMNote Text:Patient remains in shower. RN and boyfriend at side. EFM on telemetryand adjusted while patient in shower. Difficult to keep baby on. Normal [facility] PROGRESS HNO ID: [id number] thor: Yolanda (Res) SnyderService: ObstetricsAuthor Type: ResidentType: Progress NotesFiled: 11/30/2017 7:35 AMNote Text:In to place FB. Pt tolerated procedure well. Continues to leak clearfluid. Pt uncomfortable with contractions.Cat I FHT, reactive with accelsToco: 2-5 minsHeather Romina, PGY-1Obstetrics and GynecologyPager [phone]/7:34 AM Normal [facility] Type and Screenon 11-30-2017 ABO group Nom (Bld) A Normal [facility] Comment on above: Performed By: #### T &S #### [place] [address] Comment See Below [facility] Comment on above: Result Comment: Scre en &/or Xmatch expires in 3 days at 12 midnight. Redraw patient at that time. Performed By: #### T &S #### [place] [address] RH Type Positive Normal [facility] Comment on above: Performed By: #### T &S #### [place] [address] Progress Noteon 11-28-2017 Booth Usher Authentication Interface Message Text Routine VisitSubjective: Zuleika Villalta is being seen today for her obstetrical visit. She is at 21t6zirfnhvadv. Patient reports no complaints. Movement: normal. She [...] Regional HospitalInduction at 39 weeks; CYTOTEC IOL 18 at 5 pm at [facility]. Pre-Procedure formdone (CG)GBS culture: neg 11/07/17Contraception: [...] [facility] POC reviewedShe would like her follow up and contraception with Dr. Ivan.The total patient time of the visit was 15 minutes, of which greater than 50% ofthe time was spent counseling and coordinating care. Normal [facility] Progress Noteon 11-22-2017 Booth Usher Authentication Interface Message Text FTC plan of care faxed to [facility] in event pt would arrive for urgent management. Normal [facility] Progress Noteon 11-21-2017 Booth Usher Authentication Interface Message Text Routine VisitSubjective: Zuleika Villalta is being seen today for her obstetrical visit. She is at 90l3ousbpmgdpt. Patient reports that she went to [facility] last night due toconcerns for labor. She [...] Regional HospitalInduction at 39 weeks; CYTOTEC IOL 618-18 at 5 pm at [facility]. Pre-Procedure formdone (CG)GBS culture: neg 11/07/17Contraception: [...] scheduled for IOL on12/02/17.Oksana amado MD Normal [facility] Progress Noteon 11-12-2017 Booth Usher Authentication Interface Message Text Call from [facility] that pt presented there in labor. [facility] plan of care and ACOGs faxed by Toan Chen. Provided after hours MFM number provided. Normal [facility] Group B Strep Cultureon 10-16 Group B Strep Culture Group B Strep Cult ure: No Group B Streptococci isolated. Source: VAG Collected: 11/07/17 09:00 Site: Vaginal/Rectal Received : 11/07/17 22:01Group B Strep Culture FINAL 11/10/17 08:34 No Group B Streptococci isolated. Normal [facility] Comment on above: Performed By: #### G [facility] ####[address] [phone] Progress Noteon 11-07-2017 Booth Usher Authentication Interface Message Text Routine VisitSubjective: Zuleika Villalta is being seen today for her obstetrical visit. She is at 69f6lpmbwsdwgs. Patient reports occasional nausea. No emesis. She [...] OB visit and BPP.Oksana Amado MD Normal [facility] Progress Noteon 10-24-2017 Booth Usher Authentication Interface Message Text Routine VisitSubjective: Zuleika [...] was spent counseling and coordinating care.Marco Antonio Bravo DO Normal [facility] Progress Noteon 10-15-2017 Booth Usher Authentication Interface Message Text Ped selection made. Updated prenatals Normal [facility] Progress Noteon 10-08-2017 Booth Usher Authentication Interface Message Text Thank you for [...] size. There was a patent foramen ovale, fmytqphzx-nv-cuxk shunt.Tricuspid valve:Normal tricuspid valve. There was normal [...] fetuses and in fetuses with CHD and ofculkvifupdf92y47, the ratio being below 0.3 )Impression and recommendations.1) Abnormal 3-vessel view, ascending aorta was moderately dilated. 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 thymic thoracic ratio (TT-ratio)=0.1 ( TT-ratio 0.44 in normal fetuses and in fetuses with CHD and xnyvorxvbddlq43k75, the ratio being below 0.3 )5) Normal [...] earlier ifcardiac condition/status changes in any way. Ideal follow up and treatmentshould be determined on the basis of the findings on the initial echocardiogram.Counseling and/or coordination of care was greater than 35 minutes which is moreysabel 50% of the total time of 60 minutes spent on the encounter. Normal [facility] Booth Usher Authentication Interface Message Text Initial VisitSubjective: Zuleika [...] Weight Sex Delivery Anes PTL Lv2 Current1 2014Obstetric CommentsNo D&C needed-miscarried very early.Objective: BP [...] weeks for OB visit and BPP in [place].Oksana Amado MD Normal [facility] Cytogenomic Microarray Nivia sis of Bloodon 09-10-2017 Cytogenomic Microarray Analysis of Blood SEE BELOW Normal [facility] Comment on above: Result Comment: SPEC IMEN: BLOODCLINICAL INFORMATION: Learning disability[F81.9]TEST: CYTOGENOMIC MICROARRAY ANALYSISRESULT SUMMARY:Normal femaleNOMENCLATURE:arr(1-22,X)r4RAAKMRSRAGHLKH & COMMENTS:The cytogenomics microarray analysis indicated no [...] whole genome microarray analysis was performed the FDA-cleared[employer](R) Dx platform, which contains approximately 2.7million markers, including 1,[id number] unique non-polymorphic copy numberprobes and 743,304 single nucleotide polymorphism (SNP) probes. Thegenome-wide functional resolution of this assay is approximately 25 kbfor deletions and 50 kb for duplications. This microarray andassociated software (Chromosome Analysis Suite Dx) were manufactured by[employer] and used by the [facility]ogenetics and Molecular DiagnosticsLaboratories of [facility] for the purpose ofidentifying DNA [...] further information regarding intendeduse and limitations, see [email or web address].Note: The Cytogenetics Laboratory has this patient's blood [...] for additional testing. 09/19/2017 BIGG GARCIA, PH.D., [facility], [facility] 09/19/2017 Performed By: #### Tommy CRY1 ####[facility] [address] [place], [place] [phone] MRI (SINGLE)on 018 MRI (SINGLE) MRI (SINGLE)CL [...] Dr. AJ CAMILO at 09/10/2017 10:21 Normal [facility] Progress Noteon 09-10-2017 Booth Usher Authentication Interface Message Text The total patient time of the visit was 15 minutes, of which greater than 50% of the time was spent counseling and coordinating care. Normal [facility] Auto Diffon 09-03-2017 Basophils Auto #/vol (Bld) 0.1 E3/mcL Normal 0.0-0.2 [facility] Comment on above: Order Comment: Order Added by Discern Expert. Performed By: #### 2 [id number] ####KADEN [address] [place] [address] Basophils/100 WBC Auto (Bld) 0.5 % Normal 0.0-2.0 [facility] Comment on above: Order Comment: Order Added by Discern Expert. Performed By: #### 2 [id number] ####KADEN [address] [place] [address] Eos Absolute 0.0 E3/mcL Normal 0.0-0.7 [facility] Comment on above: Order Comment: Order Added by Discern Expert. Performed By: #### 2 [id number] ####KADEN [address] [place] [address] Eosinophils/100 leukocytes 0.4 % Normal 0.0-11.0 [facility] Comment on above: Order Comment: Order Added by Discern Expert. Performed By: #### 2 [id number] ####KADEN [address] [place] [address] Lymphocytes 1.3 E3/mcL Normal 1.2-3.4 [facility] Comment on above: Order Comment: Order Added by Discern Expert. Performed By: #### 2 [id number] ####KADEN [address] [place] [address] Lymphocytes/100 leukocytes 13.1 % Low 20.0-55.0 [facility] Comment on above: Order Comment: Order Added by Discern Expert. Performed By: #### 2 [id number] ####KADEN [address] [place] [address] [place] Absolute 0.4 E3/mcL Normal 0.0-0.7 [facility] Comment on above: Order Comment: Order Added by Discern Expert. Performed By: #### 2 [id number] ####KADEN [address] [place] [address] Monocytes/100 leukocytes 4.3 % Normal 0.0-10.0 [facility] Comment on above: Order Comment: Order Added by Discern Expert. Performed By: #### 2 [id number] ####KADEN [address] [place] [address] Neutro Absolute 8.4 E3/mcL High 1.4-6.5 [facility] Comment on above: Order Comment: Order Added by Discern Expert. Performed By: #### 2 [id number] ####KADEN BairdCcgPrrn[address] [place] [address] Neutro Auto 81.7 % High 37.0-75.0 [facility] Comment on above: Order Comment: Order Added by Discern Expert. Performed By: #### 2 123608 ####KADEN [address] [place] [id number] CBC w/ Auto Diffon 8 Erythrocyte distribution width Auto Ratio (RBC) 13.1 % Normal 11.5-14.5 [facility] Comment on above: Performed By: #### 2 155321 ####KADEN [address] [place] [address] Erythrocytes (RBC) 3.90 E6/mcL Normal 3.90-5.40 [facility] Comment on above: Performed By: #### 2 495597 ####KADEN [address] [place] [address] Hematocrit (HCT) 34.7 % Low 36.0-48.0 [facility] Comment on above: Performed By: #### 2 994134 ####KADEN [address] [place] [address] Hemoglobin mass conc (Bld) 11.8 g/dL Low 12.0-16.0 [facility] Comment on above: Performed By: #### 2 174318 ####KADEN [address] [place] [address] MCH 30.3 pg Normal 27.0-31.0 [facility] Comment on above: Performed By: #### 2 770068 ####KADEN [address] [place] [address] MCHC mass conc (RBC) 34.2 g/dL Normal 33.0-37.0 [facility] Comment on above: Performed By: #### 2 388510 ####KADEN [address] [place] [address] MCV 88.8 fL Normal 78.0-100.0 [facility] Comment on above: Performed By: #### 2 031828 ####KADEN [address] [place] [id number] Platelet mean volume (PMV) 7.3 fL Low 7.4-11.0 [facility] Comment on above: Performed By: #### 2 360317 ####KADEN [address] [place] [address] Platelets 218 E3/mcL Normal 130-400 [facility] Comment on above: Performed By: #### 2 365064 ####KADEN [address] [place] [address] WBC (Leukocytes) 10.2 E3/mcL Normal 3.6-11.0 [facility] Comment on above: Performed By: #### 2 421880 ####KADEN [address] [place] [address] Gest Scr Glu 1 Hron 09-04-19 18 Glucose mass conc 113 mg/dL Normal 70-140 [facility] Comment on above: Performed By: #### 2 835172 ####KADEN [address] [place] [address] FISH Probeon 08-13-2017 Protein mass conc SEE BELOW Normal [facility] Comment on above: Result Comment: SPEC IMEN: BLOOD - [id number] INFORMATION:TEST: FISH Analysis of the DiGeorge/VCFS Region [...] Metaphase images: 2The Vysis LSI DARREN Spectrum [place] Probe contains the DARREN gene (3'non-coding region of TUPLE1, N21A191, and [id number]. The Vysis LSI ARSAspectrum Green Probe includes [...] performance characteristics determinedby the Cytogenetics Laboratory of [facility]. It hasnot been cleared or [...] J Med Barbara [id number]:[id number],1995. BIGG GARCIA, PH.D., [facility], [facility] 08/16/2017 Performed By: #### F MARIA ####[address] [phone] Progress Noteon 08-13-2017 Booth Usher Authentication Interface Message Text Met with patient and FOBAaron Jose CarlosKelsi for enlarged aortic root. Medical, surgical and [...] findingsWork History: unemployed. 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 Pt plans to deliver in [place] with [facility]. Currently with Dr. Shekhar Dyson.Gas Torch Solderer is undecided. [facility] provided and discussed importance ofselection prior to delivery. Female fetus- name is Auvictor manuelionnaMethod of feeding: breast. Breast feeding booklet givenUltrasound [...] was spent counseling and coordinating care. Normal [facility] Booth Usher Authentication Interface Message Text Thank you for [...] size. There was a patent foramen ovale, muysyemnq-wk-xwix shunt.Tricuspid valve:Normal tricuspid valve. There was normal [...] 60 minutes spent on the encounter. Normal [facility] Progress Noteon 07-18-2017 Booth Usher Authentication Interface Message Text [facility] MATERNAL- MEDICINE CONSULTReferring/Requestin g Provider: VINI FranklinCP: [...] no palpitations. She usually doesnot see a hood fitter, but did have a recent echo due [...] Stroke Maternal Grandmother Heart Disease Maternal Grandmother [place] Clotting Disorder Maternal Grandfather Miscarriages / Stillbirths [...] a child 07/18/2017 Consider evaluation with social service coordinator to assess for any needs duringpregnancy or after. Will have genetic consult with [facility] evaluation. cardiac anomaly complicating , antepartum 07/18/2017 Dilated aortic root seen on ultrasound along with large umbilical cordvarix, dolichocephaly DW Dr. Zazueta, verbal order to refer to [facility] Will be scheduled with pediatric cardiology. Also, patient and family members have a history of learning disabilities,including an individual learning plan in school. She will talk to her familymembers and bring as much information as is available for her genetics consult.She has transportation to [place] and [facility]The total patient time of the visit was 30 minutes, of which was greater than50% of the time was spent counseling and coordinating care. Normal [facility] IGP W/hpv Rfx [id number] 05-07 Diagnosis: See Ref Lab Report Normal [facility] Comment on above: Order Comment: Thin Prep. Performed By: #### 2 565350 ####KADEN BairdKhpEokk5213 [place] [address] C Urineon 05-03-2017 C Urine Final Report: Normal skin alonso isolated Normal [facility] Comment on above: Performed By: #### 2 356264 ####KADEN BairdSxzLjvw4639 [place] [address] RPRon 05-03-2017 RPR Ql Non-Reactive Normal Non-Reacti ve [facility] Comment on above: Performed By: #### 2 017478 ####KADEN BairdIiyPcms9234 [place] [address] Hep Bs Agon 05-02-2017 BSA (Body Surface Area) Negative Normal Negative [facility] Comment on above: Result Comment: Perf ormed At: CB [facility] [address] [id number] Vincent PhD Ph:[phone] Performed By: #### 2 097894 ####KADEN JceNioq[address] [place] [address] ABO/Rh Echoon 05-01-2017 ABO/Rh E Interp... Positive [facility] Comment on above: Performed By: #### 2 039650 ####KADEN BairdWfqCesc7104 [place] [address] Antibody Screen Cap...on Screen Interp... Negative Normal [facility] Comment on above: Performed By: #### 2 834556 ####KADEN OykXjts2515 [place] [address] Auto Diffon 05-01-2017 Basophils Auto #/vol (Bld) 0.0 E3/mcL Normal 0.0-0.2 [facility] Comment on above: Order Comment: Order Added by Discern Expert. Performed By: #### 2 797658 ####KADEN Urinalysis Manual [address] [place] [address] Basophils/100 WBC Auto (Bld) 0.4 % Normal 0.0-2.0 [facility] Comment on above: Order Comment: Order Added by Discern Expert. Performed By: #### 2 272342 ####KADEN Urinalysis Manual [address] [address] Eos Absolute 0.1 E3/mcL Normal 0.0-0.7 [facility] Comment on above: Order Comment: Order Added by Discern Expert. Performed By: #### 2 172884 ####KADEN Urinalysis Manual X[address]xy[address] [place] [address] Eosinophils/100 leukocytes 0.7 % Normal 0.0-11.0 [facility] Comment on above: Order Comment: Order Added by Discern Expert. Performed By: #### 2 942001 ####KADEN [place] [address] Lymphocytes 1.8 E3/mcL Normal 1.2-3.4 [facility] Comment on above: Order Comment: Order Added by Discern Expert. Performed By: #### 2 516276 ####KADEN Urinalysis Manual [address] [place] [address] Lymphocytes/100 leukocytes 17.1 % Low 20.0-55.0 [facility] Comment on above: Order Comment: Order Added by Discern Expert. Performed By: #### 2 786325 ####KADEN Urinalysis Manual [address] [place] [address] [place] Absolute 0.5 E3/mcL Normal 0.0-0.7 [facility] Comment on above: Order Comment: Order Added by Discern Expert. Performed By: #### 2 441205 ####KADEN Urinalysis Manual Gtutxbezab4935 [place] [address] Monocytes/100 leukocytes 5.0 % Normal 0.0-10.0 [facility] Comment on above: Order Comment: Order Added by Discern Expert. Performed By: #### 2 134394 ####KADEN Urinalysis Manual [address] [place] [address] Neutro Absolute 8.0 E3/mcL High 1.4-6.5 [facility] Comment on above: Order Comment: Order Added by Discern Expert. Performed By: #### 2 261334 ####KADEN Urinalysis Manual Wefin[address] [place] [address] Neutro Auto 76.8 % High 37.0-75.0 [facility] Comment on above: Order Comment: Order Added by Discern Expert. Performed By: #### 2 260948 ####KADEN Urinalysis Manual [address] [place] [address] CBC w/ Auto Diffon 7 Erythrocyte distribution width Auto Ratio (RBC) 15.2 % High 11.5-14.5 [facility] Comment on above: Performed By: #### 2 060272 ####KADEN Urinalysis Manual Afdjiqes[address] [place] [address] Erythrocytes (RBC) 4.90 E6/mcL Normal 3.90-5.40 [facility] Comment on above: Performed By: #### 2 688258 ####KADEN Urinalysis Manual Nqxznsgz[address] [place] [address] Hematocrit (HCT) 41.1 % Normal 36.0-48.0 [facility] Comment on above: Performed By: #### 2 811950 ####KADEN Urinalysis Manual Qstsh[address]vy[address] [place] [address] Hemoglobin mass conc (Bld) 13.5 g/dL Normal 12.0-16.0 [facility] Comment on above: Performed By: #### 2 282722 ####KADEN Urinalysis Manual [address]uzufiq[address] [place] [address] MCH 27.5 pg Normal 27.0-31.0 [facility] Comment on above: Performed By: #### 2 499736 ####KADEN Urinalysis Manual [address] [place] [address] MCHC mass conc (RBC) 32.8 g/dL Low 33.0-37.0 [facility] Comment on above: Performed By: #### 2 024256 ####KADEN Urinalysis Manual [address] [place] [address] MCV 83.9 fL Normal 78.0-100.0 [facility] Comment on above: Performed By: #### 2 165089 ####KADEN Urinalysis Manual [address] [place] [address] Platelet mean volume (PMV) 8.0 fL Normal 7.4-11.0 [facility] Comment on above: Performed By: #### 2 102311 ####KADEN Urinalysis Manual [address]rymwfll[address] [place] [address] Platelets 246 E3/mcL Normal 130-400 [facility] Comment on above: Performed By: #### 2 296976 ####KADEN Urinalysis Manual [address] [place], [place] [address] WBC (Leukocytes) 10.4 E3/mcL Normal 3.6-11.0 [facility] Comment on above: Performed By: #### 2 020343 ####KADEN Urinalysis Manual Iqavlfda[address] [place] [address] Chlamydia GC by PCRon 2016 Chlamydia by PCR. Not Detected Normal Not Detected [facility] Comment on above: Result Comment: Xper t CT/NG Assay performance has not been evaluated in patients less than 14 years of age. Performed By: #### 2 853686 ####KADEN PnzHzgo2786 [place] [address] Gonorrhoeae by PCR Not Detected Normal Not Detected [facility] Comment on above: Result Comment: Xper t CT/NG Assay performance has not been evaluated in patients less than 14 years of age. Performed By: #### 2 571550 ####KADEN [address] [place] 0934305 HIV-1/2 Ag/Abon 05-01-2017 HIV-1/2 Ag/Ab Non-Reactive Normal Non-Reacti ve [facility] Comment on above: Performed By: #### 2 977375 ####KADEN [place] [address] Rubella IgG Lvlon 05-01-2017 Rubella IgG Lvl 50.8 (POS) Normal [facility] Comment on above: Result Comment: <10I U/ml NON REACTIVE: NOT VAHOFH70-26 IU/ml RUBELLA SPECIFIC AB PRESENT, EVALUATEFURTHER TO DETERMINE IMMUNE STATUS >15 IU/ml REACTIVE, IMMUNE Performed By: #### 2 297142 ####KADEN SsvUueg[address] [place] [address] Auto Diffon 04-22-2017 Basophils Auto #/vol (Bld) 0.1 E3/mcL Normal 0.0-0.2 [facility] Comment on above: Order Comment: Order Added by Discern Expert. Performed By: #### 2 156245 ####KADEN [place] [address] Basophils/100 WBC Auto (Bld) 0.6 % Normal 0.0-2.0 [facility] Comment on above: Order Comment: Order Added by Discern Expert. Performed By: #### 2 549964 ####KADEN [place] [address] Eos Absolute 0.0 E3/mcL Normal 0.0-0.7 [facility] Comment on above: Order Comment: Order Added by Discern Expert. Performed By: #### 2 436795 ####KADEN [place] [address] Eosinophils/100 leukocytes 0.2 % Normal 0.0-11.0 [facility] Comment on above: Order Comment: Order Added by Discern Expert. Performed By: #### 2 362320 ####KADEN [place] [address] Lymphocytes 1.5 E3/mcL Normal 1.2-3.4 [facility] Comment on above: Order Comment: Order Added by Discern Expert. Performed By: #### 2 731701 ####KADEN Urinalysis Manual [address] [place] [address] Lymphocytes/100 leukocytes 10.8 % Low 20.0-55.0 [facility] Comment on above: Order Comment: Order Added by Discern Expert. Performed By: #### 2 259240 ####KADEN Urinalysis Manual [address] [place] [address] Yuma Absolute 0.6 E3/mcL Normal 0.0-0.7 [facility] Comment on above: Order Comment: Order Added by Discern Expert. Performed By: #### 2 939387 ####KADEN Urinalysis Manual X[address]jnjur[address] [place] [address] Monocytes/100 leukocytes 4.4 % Normal 0.0-10.0 [facility] Comment on above: Order Comment: Order Added by Discern Expert. Performed By: #### 2 124378 ####KADEN Urinalysis Manual [address]umhvq[address] [place] [address] Neutro Absolute 11.3 E3/mcL High 1.4-6.5 [facility] Comment on above: Order Comment: Order Added by Discern Expert. Performed By: #### 2 966518 ####KADEN Urinalysis Manual [address] [place] [address] Neutro Auto 84.0 % High 37.0-75.0 [facility] Comment on above: Order Comment: Order Added by Discern Expert. Performed By: #### 2 575242 ####KADEN Urinalysis Manual [address]vbqioqsw[address] [place] [address] BMPon 04-22-2017 BUN/Creatinine Ratio Unable to calc Normal 5.4-30.0 [facility] Comment on above: Performed By: #### 2 091568 ####KADEN Urinalysis Manual Vnieanajqv[address] [place] [address] Creatinine mg/dL Low 0.6-1.3 [facility] Comment on above: Performed By: #### 2 605524 ####KADEN Urinalysis Manual [address]tiybv[address] [place] [address] Urea nitrogen 7 mg/dL Normal 7-18 [facility] Comment on above: Performed By: #### 2 426205 ####KADEN Urinalysis Manual F[address]ayqyxlf5014 [place] [address] Calcium 9.6 mg/dL Normal 8.4-10.2 [facility] Comment on above: Performed By: #### 2 722075 ####KADEN Urinalysis Manual [address]zmgxwv[address] [place] [address] Chloride 103 mmol/L Normal 98-107 [facility] Comment on above: Performed By: #### 2 714960 ####KADEN Urinalysis Manual Ywrk[address]phg[address] [place] [address] CO2 21.7 mmol/L Low 24.0-30.0 [facility] Comment on above: Performed By: #### 2 630435 ####KADEN Urinalysis Manual [address]rr[address] [place] [address] Glucose mass conc 89 mg/dL Normal 70-99 [facility] Comment on above: Performed By: #### 2 122734 ####KADEN Urinalysis Manual [address]fot[address]qvsr[address] [place] [address] Potassium molar conc 3.6 mmol/L Normal 3.5-5.1 [facility] Comment on above: Performed By: #### 2 917736 ####KADEN Urinalysis Manual T[address]zfjgky[address] [place] [address] Sodium 136 mmol/L Normal 136-145 [facility] Comment on above: Performed By: #### 2 834069 ####KADEN Urinalysis Manual V[address]wdodwp[address] [place] [address] CBC w/ Auto Diffon 7 Erythrocyte distribution width Auto Ratio (RBC) 14.8 % High 11.5-14.5 [facility] Comment on above: Performed By: #### 2 675504 ####KADEN Urinalysis Manual [address]ss[address] [place] [address] Erythrocytes (RBC) 4.96 E6/mcL Normal 3.90-5.40 [facility] Comment on above: Performed By: #### 2 455740 ####KADEN Urinalysis Manual [address]wgixiije[address] [place] [address] Hematocrit (HCT) 40.9 % Normal 36.0-48.0 [facility] Comment on above: Performed By: #### 2 881976 ####KADEN Urinalysis Manual [address]itnnk[address] [place] [address] Hemoglobin mass conc (Bld) 13.5 g/dL Normal 12.0-16.0 [facility] Comment on above: Performed By: #### 2 280771 ####KADEN Urinalysis Manual Xfdhawsznz[address] [place] [address] MCH 27.2 pg Normal 27.0-31.0 [facility] Comment on above: Performed By: #### 2 634975 ####KADEN Urinalysis Manual [address]axjyxzq[address] [place] [address] MCHC mass conc (RBC) 33.0 g/dL Normal 33.0-37.0 [facility] Comment on above: Performed By: #### 2 048657 ####KADEN Urinalysis Manual [address]unbrtilg[address] [place] [address] MCV 82.4 fL Normal 78.0-100.0 [facility] Comment on above: Performed By: #### 2 632634 ####KADEN Urinalysis Manual Ufhqaltiey[address] [place] [address] Platelet mean volume (PMV) 8.0 fL Normal 7.4-11.0 [facility] Comment on above: Performed By: #### 2 087279 ####KADEN Urinalysis Manual [address]wezkmzz[address] [place] [address] Platelets 237 E3/mcL Normal 130-400 [facility] Comment on above: Performed By: #### 2 736751 ####KADEN Urinalysis Manual Umvlssrgtb[address] [place] [address] WBC (Leukocytes) 13.5 E3/mcL High 3.6-11.0 [facility] Comment on above: Performed By: #### 2 676836 ####KADEN Urinalysis Manual Rolgcbexxw[address] [place] [address] UA Completeon 04-22-2017 UA Blood Negative Normal Negative [facility] Comment on above: Performed By: #### 2 721542 ####KADEN Urinalysis Manual [address]cyrrkka[address]41 [place] [address] UA Ascorbic Acid 40 mg/dL High <=19 [facility] Comment on above: Performed By: #### 2 625274 ####KADEN Urinalysis Manual [address] [place], [place] [address] UA Bacteria 3+ /HPF Abnormal None [facility] Comment on above: Performed By: #### 2 020233 ####KADEN Urinalysis Manual [address]ylehwanwu[address] [place] [address] UA Clarity SltCloudy Abnormal Clear [facility] Comment on above: Performed By: #### 2 023997 ####KADEN Urinalysis Manual [address] [place] [address] UA Leuk Est Negative Normal Negative [facility] Comment on above: Performed By: #### 2 118019 ####KADEN Urinalysis Manual [address]grsaaquhd[address] [place] [address] UA Mucous Few Abnormal Trace [facility] Comment on above: Performed By: #### 2 253949 ####KADEN Urinalysis Manual [address]dszdqox[address] [place] [address] UA Nitrite Negative Normal Negative [facility] Comment on above: Performed By: #### 2 093484 ####KADEN Urinalysis Manual Fmjocsypxt[address] [place] [address] UA pH 8.0 Normal 4.6-8.0 [facility] Comment on above: Performed By: #### 2 509717 ####KADEN Urinalysis Manual Odox[address]yqj[address] [place] [address] UA Protein Negative Normal Negative [facility] Comment on above: Performed By: #### 2 127609 ####KADEN Urinalysis Manual [address]rtjooq[address] [place] [address] UA Spec Grav 1.012 Normal 1.003-1.03 0 [facility] Comment on above: Performed By: #### 2 930175 ####KADEN Urinalysis Manual [address]rixe[address] [place] [address] UA Squam Epithelial 0-5 Normal 0-5 [facility] Comment on above: Performed By: #### 2 389014 ####KADEN Urinalysis Manual Jlw[address]jqlfd6903 [place] [address] UA Urobilinogen Negative Normal [facility] Comment on above: Performed By: #### 2 542380 ####KADEN Urinalysis Manual Pdhcpwlpvh4832 [place] [address] UA WBC 0-5 Normal 0-5 [facility] Comment on above: Performed By: #### 2 285673 ####KADEN Urinalysis Manual Udnaxlsbgx1890 [place] [address] Urine, color Yellow Normal Yellow [facility] Comment on above: Performed By: #### 2 584616 ####KADEN Urinalysis Manual Qwrgaxpwqq4109 [place] [address] Urine, glucose Negative Normal Negative [facility] Comment on above: Performed By: #### 2 829782 ####KADEN Urinalysis Manual Qie[address]sovwu[address] [place] [address] Urine, ketones presence 1+ Abnormal Negative [facility] Comment on above: Performed By: #### 2 586515 ####KADEN Urinalysis Manual W[address]ymqzto[address] [place] [address] Urine, urobilinogen Negative Normal Negative [facility] Comment on above: Performed By: #### 2 592603 ####KADEN Urinalysis Manual [address] [place] [address] eGFRon 04-22-2017 eGFR AA >60 Normal [facility] Comment on above: Order Comment: Order added by Discern Expert. Performed By: #### 2 725128 ####KADEN Urinalysis Manual [address]bdvasihf[address] [place] [address] eGFR (non-black) mL/min/{1.73_m2} Normal [facility] Comment on above: Order Comment: Order added by Discern Expert. Performed By: #### 2 964207 ####KADEN Urinalysis Manual Xhw[address]okigji4952 [place] [address] C Urineon 04-20-2017 C Urine Final Report: Normal skin alonso isolated Normal [facility] Comment on above: Performed By: #### 2 540387 ####KADEN Urinalysis Manual Fcfhfvxnxz4659 [place] [address] BMPon 04-18-2017 BUN/Creatinine Ratio 15.0 ratio Normal 5.4-30.0 [facility] Comment on above: Performed By: #### 2 952049 ####KADENMorelia BairdNddLeph1439 [place] [address] Creatinine 0.6 mg/dL Normal 0.6-1.3 [facility] Comment on above: Performed By: #### 2 379058 ####KADEN BairdAirDbax[address]31 [place] [address] Urea nitrogen 9 mg/dL Normal 7-18 [facility] Comment on above: Performed By: #### 2 431428 ####KADEN BairdQftQlcb4262 [place] [address] Calcium 9.6 mg/dL Normal 8.4-10.2 [facility] Comment on above: Performed By: #### 2 909572 ####KADEN Bai[address] [place] [address] Chloride 102 mmol/L Normal 98-107 [facility] Comment on above: Performed By: #### 2 359025 ####KADEN BairdHzeImyd7039 [place] [address] CO2 23.3 mmol/L Low 24.0-30.0 [facility] Comment on above: Performed By: #### 2 816877 ####KADENMorelia BairdCfsWhva2512 [place] [address] Glucose mass conc 93 mg/dL Normal 70-99 [facility] Comment on above: Performed By: #### 2 783483 ####KADENMorelia BairdTdxEgsd5561 [place] [address] Potassium molar conc 3.5 mmol/L Normal 3.5-5.1 [facility] Comment on above: Performed By: #### 2 619402 ####KADENMoerlia BairdToaGvmg9014 [place] [address] Sodium 136 mmol/L Normal 136-145 [facility] Comment on above: Performed By: #### 2 131302 ####KADENMorelia BairdMwpItxy9220 [place] [address] UA Completeon 04-18-2017 UA Blood Negative Normal Negative [facility] Comment on above: Performed By: #### 2 859526 ####KADEN Urinalysis Manual Obcprxxqoj2449 [place] [address] UA Amorph Chastity 2+ /HPF Abnormal None [facility] Comment on above: Performed By: #### 2 [id number] ####KADEN Urinalysis Manual [address] [place] [address] UA Ascorbic Acid 40 mg/dL High <=19 [facility] Comment on above: Performed By: #### 2 [id number] ####KADEN Urinalysis Manual [address] [place] [address] UA Clarity Cloudy Abnormal Clear [facility] Comment on above: Performed By: #### 2 [id number] ####KADEN Urinalysis Manual [address]jcv[address] [place] [address] UA Leuk Est Negative Normal Negative [facility] Comment on above: Performed By: #### 2 [id number] ####KADEN Urinalysis Manual Qn[address]wzljqi[address] [place] [address] UA Mucous Trace Abnormal Trace [facility] Comment on above: Performed By: #### 2 [id number] ####KADEN Urinalysis Manual [address] [place] [address] UA Nitrite Negative Normal Negative [facility] Comment on above: Performed By: #### 2 [id number] ####KADEN Urinalysis Manual Ovgrli[address]le[address] [place] [address] UA pH 7.0 Normal 4.6-8.0 [facility] Comment on above: Performed By: #### 2 [id number] ####KADEN Urinalysis Manual [address] [place] [address] UA Protein Negative Normal Negative [facility] Comment on above: Performed By: #### 2 [id number] ####KADEN Urinalysis Manual [address] [place] [address] UA Spec Grav 1.018 Normal 1.003-1.03 0 [facility] Comment on above: Performed By: #### 2 [id number] ####KADEN Urinalysis Manual A[address]uiq[address] [place] [address] UA Squam Epithelial 0-5 Normal 0-5 [facility] Comment on above: Performed By: #### 2 246307 ####KADEN Urinalysis Manual Selfcfmnau[address] [place] [address] UA Urobilinogen Negative Normal [facility] Comment on above: Performed By: #### 2 946303 ####KADEN Urinalysis Manual Rft[address]mmy[address] [place] [address] Urine, color Yellow Normal Yellow [facility] Comment on above: Performed By: #### 2 987487 ####KADEN Urinalysis Manual [address]vv[address] [place] [address] Urine, glucose Negative Normal Negative [facility] Comment on above: Performed By: #### 2 576377 ####KADEN Urinalysis Manual [address]em[address]wa[address] [place] [address] Urine, ketones presence 2+ Abnormal Negative [facility] Comment on above: Performed By: #### 2 [id number] ####KADEN Urinalysis Manual [address]ikz[address] [place] [address] Urine, urobilinogen Negative Normal Negative [facility] Comment on above: Performed By: #### 2 [id number] ####KADEN Urinalysis Manual Rbbezoanoy[address] [place] [address] eGFRon 04-18-2017 eGFR (non-black) mL/min/{1.73_m2} Normal [facility] Comment on above: Order Comment: Order added by Discern Expert. Performed By: #### 1 [id number] ####KADEN XxxUlaf1697 [place] [address] eGFR AA >60 Normal [facility] Comment on above: Order Comment: Order added by Discern Expert. Performed By: #### 1 [id number] ####KADEN RbuYrpn3953 [place] [address] Auto Diffon 04-11-2017 Basophils Auto #/vol (Bld) 0.1 E3/mcL Normal 0.0-0.2 [facility] Comment on above: Order Comment: Order Added by Discern Expert. Performed By: #### 2 [id number] ####KADEN HiyNkhq7720 [place] [address] Basophils/100 WBC Auto (Bld) 0.7 % Normal 0.0-2.0 [facility] Comment on above: Order Comment: Order Added by Discern Expert. Performed By: #### 2 [id number] ####KADEN BairdPhmRhgh0195 [place] [address] Eos Absolute 0.0 E3/mcL Normal 0.0-0.7 [facility] Comment on above: Order Comment: Order Added by Discern Expert. Performed By: #### 2 [id number] ####KADEN BairdTamWhlr5241 [place] [address] Eosinophils/100 leukocytes 0.1 % Normal 0.0-11.0 [facility] Comment on above: Order Comment: Order Added by Discern Expert. Performed By: #### 2 720078 ####KADEN BairdVwwFgyy0150 [place] [address] Lymphocytes 1.5 E3/mcL Normal 1.2-3.4 [facility] Comment on above: Order Comment: Order Added by Discern Expert. Performed By: #### 2 378169 ####KADEN BairdHmhNxxw9049 [place] [address] Lymphocytes/100 leukocytes 17.2 % Low 20.0-55.0 [facility] Comment on above: Order Comment: Order Added by Discern Expert. Performed By: #### 2 512786 ####KADEN BairdHneSymo3635 [place] [address] Yuma Absolute 0.6 E3/mcL Normal 0.0-0.7 [facility] Comment on above: Order Comment: Order Added by Discern Expert. Performed By: #### 2 [id number] ####KADEN BairdUggHswp7304 [place] [address] Monocytes/100 leukocytes 6.6 % Normal 0.0-10.0 [facility] Comment on above: Order Comment: Order Added by Discern Expert. Performed By: #### 2 781364 ####KADEN BairdWmnNskj6453 [place] [address] Neutro Absolute 6.7 E3/mcL High 1.4-6.5 [facility] Comment on above: Order Comment: Order Added by Discern Expert. Performed By: #### 2 363746 ####KADEN BairdHjuJhih0745 [place] [address] Neutro Auto 75.4 % High 37.0-75.0 [facility] Comment on above: Order Comment: Order Added by Discern Expert. Performed By: #### 2 158946 ####KADEN Luceroo1025 [place] [address] BMPon 04-11-2017 BUN/Creatinine Ratio 12.9 ratio Normal 5.4-30.0 [facility] Comment on above: Performed By: #### 2 414097 ####KADEN Bai1025 [place] [address] Creatinine 0.7 mg/dL Normal 0.6-1.3 [facility] Comment on above: Performed By: #### 2 520693 ####KADEN Bai1025 [place] [address] Urea nitrogen 9 mg/dL Normal 7-18 [facility] Comment on above: Performed By: #### 2 170408 ####KADEN BairdUraGxzj1594 [place] [address] Calcium 9.5 mg/dL Normal 8.4-10.2 [facility] Comment on above: Performed By: #### 2 224835 ####KADEN BairdRzhQzxa0883 [place] [address] Chloride 105 mmol/L Normal 98-107 [facility] Comment on above: Performed By: #### 2 810401 ####KADEN BairdHvfVskv1803 [place] [address] CO2 22.5 mmol/L Low 24.0-30.0 [facility] Comment on above: Performed By: #### 2 228407 ####KADEN BairdNcjYcog5191 [place] [address] Glucose mass conc 92 mg/dL Normal 70-99 [facility] Comment on above: Performed By: #### 2 631788 ####KADEN BairdHndVfoh5777 [place] [address] Potassium molar conc 3.6 mmol/L Normal 3.5-5.1 [facility] Comment on above: Performed By: #### 2 146572 ####KADENMorelia BairdWemAbib0926 [place] [address] Sodium 137 mmol/L Normal 136-145 [facility] Comment on above: Performed By: #### 2 431879 ####KADEN TygVlnc9049 [place] [address] BhCG Quanton 04-11-2017 Beta hCG Qnt 8564.0 mIU/m Normal [facility] Comment on above: Result Comment: FEMA LE (NON-) & MALE <3 BORDERLINE 3 - 5 SUGGEST REPEAT TESTING FEMALE () 1 D - 1 WK 5 - 50 1 - 2 WK 50 - 500 2 - 3 WK 100 - 5000 3 - 4 WK 500 - 30556 4 - 5 WK 1000 - 83109 5 - 6 WK 19170 - 250209 6 - 8 WK 09980 - 918446 2 - 3 [place] [address] - 870880 Performed By: #### 2 094258 ####KADENMorelia BairdLkjQwrz5626 [place] [address] CBC w/ Auto Diffon 7 Erythrocyte distribution width Auto Ratio (RBC) 13.9 % Normal 11.5-14.5 [facility] Comment on above: Performed By: #### 2 110653 ####KADENMorelia LuceroUbmYcyz7930 [place] [address] Erythrocytes (RBC) 4.63 E6/mcL Normal 3.90-5.40 [facility] Comment on above: Performed By: #### 2 301000 ####KADENMorelia BairdUkeSezu4371 [place] [address] Hematocrit (HCT) 38.2 % Normal 36.0-48.0 [facility] Comment on above: Performed By: #### 2 584513 ####KADENMorelia BairdUyuWjoc8194 [place] [address] Hemoglobin mass conc (Bld) 12.6 g/dL Normal 12.0-16.0 [facility] Comment on above: Performed By: #### 2 279360 ####KADENMorelia BairdSfqMajp4598 [place] [address] MCH 27.2 pg Normal 27.0-31.0 [facility] Comment on above: Performed By: #### 2 025843 ####KADEN BairdQvfEdfn7922 [place] [address] MCHC mass conc (RBC) 33.0 g/dL Normal 33.0-37.0 [facility] Comment on above: Performed By: #### 2 087777 ####KADEN BairdDtfWpks4634 [place] [address] MCV 82.6 fL Normal 78.0-100.0 [facility] Comment on above: Performed By: #### 2 157010 ####KADEN [address]eroo[address] [place] [address] Platelet mean volume (PMV) 8.0 fL Normal 7.4-11.0 [facility] Comment on above: Performed By: #### 2 986197 ####KADEN [address] [place] [address] Platelets 233 E3/mcL Normal 130-400 [facility] Comment on above: Performed By: #### 2 562977 ####KADEN [address] [place] [address] WBC (Leukocytes) 9.0 E3/mcL Normal 3.6-11.0 [facility] Comment on above: Performed By: #### 2 191387 ####KADEN [address] [place] [address] UA Completeon 04-11-2017 UA Blood Negative Normal Negative [facility] Comment on above: Result Comment: High concentration of Ascorbic Acid present in urine. This may cause False Negative Occ Blood. Review microscopic results and patient's clinical symptoms. Performed By: #### 8 [id number] ####KADEN Urinalysis Automated Hmmxysiqdx1108 [place] [address] UA Amorph Chastity 1+ /HPF Abnormal None [facility] Comment on above: Performed By: #### 8 [id number] ####KADNE Urinalysis Automated [address]xpqkt3[address] [place] [id number] UA Ascorbic Acid 40 mg/dL High <=19 [facility] Comment on above: Performed By: #### 8 [id number] ####KADEN Urinalysis Automated Xexrkrlcya0652 [place] [address] UA Bacteria Trace Abnormal None [facility] Comment on above: Performed By: #### 8 [id number] ####KADEN Urinalysis Automated Wtowcvhofr0329 [place] [address] UA Clarity Cloudy Abnormal Clear [facility] Comment on above: Performed By: #### 8 [id number] ####KADEN Urinalysis Automated Ksixzzaokj2983 [place] [address] UA Leuk Est Negative Normal Negative [facility] Comment on above: Performed By: #### 8 [id number] ####KADEN Urinalysis Automated Xlwbrhqcka6663 [place] [address] UA Mucous Few Abnormal Trace [facility] Comment on above: Performed By: #### 8 [id number] ####KADEN Urinalysis Automated [address] [place] [address] UA Nitrite Negative Normal Negative [facility] Comment on above: Performed By: #### 8 [id number] ####KADEN Urinalysis Automated Dmjxegvqvr[address] [place] [address] UA pH 7.0 Normal 4.6-8.0 [facility] Comment on above: Performed By: #### 8 [id number] ####KADEN Urinalysis Automated Fcstslzhzk[address] [place] [address] UA Protein Negative Normal Negative [facility] Comment on above: Performed By: #### 8 [id number] ####KADEN Urinalysis Automated Tiiexxtqrk[address] [place] [address] UA Spec Grav 1.025 Normal 1.003-1.03 0 [facility] Comment on above: Performed By: #### 8 [id number] ####KADEN Urinalysis Automated Rdpvoahaos7958 [place] [address] UA Squam Epithelial 5-10 Abnormal 0-5 [facility] Comment on above: Performed By: #### 8 2154504 ####KADEN Urinalysis Automated Pwkmswhqlu[address] [place] [address] UA Urobilinogen 2.0 mg/dL Abnormal [facility] Comment on above: Performed By: #### 8 4455412 ####KADEN Urinalysis Automated Olilefkmql[address] [place] [address] Urine, color Yellow Normal Yellow [facility] Comment on above: Performed By: #### 8 [id number] ####KADEN Urinalysis Automated Jlxsupudle4572 [place] [address] Urine, erythrocytes 0-3 Normal 0-3 [facility] Comment on above: Performed By: #### 8 [id number] ####KADEN Urinalysis Automated Gukhftdlat2851 [place] [address] Urine, glucose Negative Normal Negative [facility] Comment on above: Performed By: #### 8 [id number] ####KADEN Urinalysis Automated Tsewgzvuve[address] [place] [address] Urine, ketones presence 2+ Abnormal Negative [facility] Comment on above: Performed By: #### 8 [id number] ####KADEN Urinalysis Automated Ceadnqnjdu[address] [place] [address] Urine, urobilinogen Negative Normal Negative [facility] Comment on above: Performed By: #### 8 [id number] ####KADEN Urinalysis Automated Hlbohcznig[address] [place] [address] eGFRon 04-11-2017 eGFR (non-black) mL/min/{1.73_m2} Normal [facility] Comment on above: Order Comment: Order added by Discern Expert. Performed By: #### 1 [id number] ####KADEN YjmDkfy6246 [place] [address] eGFR AA >60 Normal [facility] Comment on above: Order Comment: Order added by Discern Expert. Performed By: #### 1 [id number] ####KADEN AyhVqpv3330 [place] [address] U BhCG Qlton 03-20-2017 HCG.beta subunit Qn Negative Normal Neg [facility] Comment on above: Performed By: #### 2 [id number] ####KADEN Urinalysis Manual Qlsgkczaxy[address] [place] [address] UA Completeon 03-20-2017 UA Blood Negative Normal Negative [facility] Comment on above: Performed By: #### 8 [id number] ####KADEN Urinalysis Automated Jixeynbste[address] [place] [address] UA Amorph Chastity 1+ /HPF Abnormal None [facility] Comment on above: Performed By: #### 8 0986111 ####KDAEN Urinalysis Automated Njqqsjdusu6189 [place] [address] UA Bacteria 2+ /HPF Abnormal None [facility] Comment on above: Performed By: #### 8 [id number] ####KADEN Urinalysis Automated Wbuvokuguf0863 [place] [address] UA Clarity Cloudy Abnormal Clear [facility] Comment on above: Performed By: #### 8 [id number] ####KADEN Urinalysis Automated Dguzvcidgo6401 [place] [address] UA Leuk Est 1+ Abnormal Negative [facility] Comment on above: Performed By: #### 8 [id number] ####KADEN Urinalysis Automated Locwyvkgez[address] [place] [address] UA Mucous Occasional Abnormal Trace [facility] Comment on above: Performed By: #### 8 [id number] ####KADEN Urinalysis Automated [address] [place] [address] UA Nitrite Negative Normal Negative [facility] Comment on above: Performed By: #### 8 [id number] ####KADEN Urinalysis Automated Eatjvuuyti[address] [place] [address] UA pH 6.0 Normal 4.6-8.0 [facility] Comment on above: Performed By: #### 8 2140982 ####KADEN Urinalysis Automated Jjydonqloy[address] [place] [address] UA Protein 1+ Abnormal Negative [facility] Comment on above: Performed By: #### 8 [id number] ####KADEN Urinalysis Automated Rkwhlswfkl5342 [place] [address] UA Spec Grav 1.019 Normal 1.003-1.03 0 [facility] Comment on above: Performed By: #### 8 [id number] ####KADEN Urinalysis Automated Xqnmeycodj[address] [place] [address] UA Squam Epithelial 5-10 Abnormal 0-5 [facility] Comment on above: Performed By: #### 8 [id number] ####KADEN Urinalysis Automated Bubhbqrfcq0451 [place] [address] UA Urobilinogen Negative Normal [facility] Comment on above: Performed By: #### 8 [id number] ####KADEN Urinalysis Automated Nbhqgzqocj4398 [place] [address] UA WBC >50 Abnormal 0-5 [facility] Comment on above: Performed By: #### 8 [id number] ####KADEN Urinalysis Automated Rmkjxiizpk0423 [place] [address] Urine, color Yellow Normal Yellow [facility] Comment on above: Performed By: #### 8 [id number] ####KADEN Urinalysis Automated Nvygkhqipn6721 [place] [address] Urine, erythrocytes 5-10 Abnormal 0-3 [facility] Comment on above: Performed By: #### 8 [id number] ####KADEN Urinalysis Automated Idtfcnveak8477 [place] [address] Urine, glucose Negative Normal Negative [facility] Comment on above: Performed By: #### 8 [id number] ####KADEN Urinalysis Automated Urftyfcgxd9487 [place] [address] Urine, ketones presence Negative Normal Negative [facility] Comment on above: Performed By: #### 8 [id number] ####KADEN Urinalysis Automated Toddijahee3099 [place] [address] Urine, urobilinogen Negative Normal Negative [facility] Comment on above: Performed By: #### 8 [id number] ####KADEN Urinalysis Automated Bcpvwmtqcm8671 [place] [address] Vital Signs Date Time Vital Sign Value Performing Clinician Facility 07-18-2023 10:30-0500 Body mass index (BMI) [Ratio] 26.7 kg/m2 [employer] DO Work Phone: [facility] 07-18-2023 10:30-0500 Body weight 75.03 kg [employer] Work Phone: [facility] 07-18-2023 10:30-0500 Diastolic blood pressure 68 mm[Hg] [employer] Work Phone: [facility] 07-18-2023 10:30-0500 Systolic blood pressure 106 mm[Hg] Cuong Ortiz DO Work Phone: [facility] 02-11-2023 14:13-0400 Body height 165.1 cm PAZhao Wyatt Work Phone: [facility] 02-11-2023 14:13-0400 Body temperature 97.9 [degF] SADAF Wyatt Work Phone: [facility] 02-11-2023 14:13-0400 Body weight 70.55 kg PAZhao Wyatt Work Phone: [facility] 02-11-2023 14:13-0400 Diastolic blood pressure 80 mm[Hg] SADAF Wyatt Work Phone: [facility] 02-11-2023 14:13-0400 Heart rate 60 /min SADAF Wyatt Work Phone: [facility] 02-11-2023 14:13-0400 Respiratory rate 15 /min SADAF Wyatt Work Phone: [facility] 02-11-2023 14:13-0400 SaO2% (BldA) [Mass fraction] 99 % SADAF Wyatt Work Phone: [facility] 02-11-2023 14:13-0400 Systolic blood pressure 134 mm[Hg] SADAF Wyatt Work Phone: [facility] 02-08-2023 12:36-0400 Body height 165.1 cm SADAF Wyatt Work Phone: [facility] 02-08-2023 12:36-0400 Body temperature 98.2 [degF] SADAF Wyatt Work Phone: [facility] 02-08-2023 12:36-0400 Body weight 72.57 kg SADAF Wyatt Work Phone: [facility] 02-08-2023 12:36-0400 Diastolic blood pressure 84 mm[Hg] SADAF Wyatt Work Phone: [facility] 02-08-2023 12:36-0400 Heart rate 74 /min PA-Ventura Wyatt Work Phone: [facility] 02-08-2023 12:36-0400 Respiratory rate 15 /min PA-C Andie Wyatt Work Phone: [facility] 02-08-2023 12:36-0400 SaO2% (BldA) [Mass fraction] 98 % PA-C Andie Wyatt Work Phone: [facility] 02-08-2023 12:36-0400 Systolic blood pressure 150 mm[Hg] PA-C Andie Wyatt Work Phone: [facility] 12-19-2022 14:43-0400 Body temperature 96.9 [degF] FERMIN-Ventura Wyatt Work Phone: [facility] 12-19-2022 14:43-0400 Diastolic blood pressure 74 mm[Hg] PA-C Andie Wyatt Work Phone: [facility] 12-19-2022 14:43-0400 Heart rate 59 /min FERMIN-C Andie Wyatt Work Phone: [facility] 12-19-2022 14:43-0400 Respiratory rate 18 /min PA-Ventura Wyatt Work Phone: [facility] 12-19-2022 14:43-0400 SaO2% (BldA) [Mass fraction] 100 % PA-C Andie Wyatt Work Phone: [facility] 12-19-2022 14:43-0400 Systolic blood pressure 115 mm[Hg] PA-Ventura Wyatt Work Phone: [facility] 12-19-2022 14:00-0400 Diastolic blood pressure 89 mm[Hg] PA-Ventura Wyatt Work Phone: [facility] 12-19-2022 14:00-0400 Heart rate 79 /min PA-Ventura Wyatt Work Phone: [facility] 12-19-2022 14:00-0400 Respiratory rate 16 /min SADAF Wyatt Work Phone: [facility] 12-19-2022 14:00-0400 SaO2% (BldA) [Mass fraction] 99 % SADAF Wyatt Work Phone: [facility] 12-19-2022 14:00-0400 Systolic blood pressure 150 mm[Hg] PA-Ventura Wyatt Work Phone: [facility] 12-19-2022 03:30-0400 Body height 165.1 cm SADAF Wyatt Work Phone: [facility] 12-19-2022 03:30-0400 Body weight 72.2 kg PAZhao Wyatt Work Phone: [facility] 12-18-2022 23:07-0400 Body height 165.1 cm PAZhao Wyatt Work Phone: [facility] 12-18-2022 23:07-0400 Body weight 74.2 kg SADAF Wyatt Work Phone: [facility] 12-18-2022 23:05-0400 Body temperature 98.5 [degF] SADAF Wyatt Work Phone: [facility] 08-20-2022 14:31-0500 Body height 165.1 cm SADAF Wyatt Work Phone: [facility] 08-20-2022 14:31-0500 Body temperature 98.9 [degF] SADAF Wyatt Work Phone: [facility] 08-20-2022 14:31-0500 Body weight 71.55 kg SADAF Wyatt Work Phone: [facility] 08-20-2022 14:31-0500 Diastolic blood pressure 87 mm[Hg] SADAF Wyatt Work Phone: [facility] 03-06-2023 14:31-0500 Heart rate 97 /min PA-C Andie Wyatt Work Phone: [facility] 08-20-2022 14:31-0500 Respiratory rate 18 /min PA-Ventura Wyatt Work Phone: [facility] 08-20-2022 14:31-0500 SaO2% (BldA) [Mass fraction] 98 % PA-Ventura Wyatt Work Phone: [facility] 08-20-2022 14:31-0500 Systolic blood pressure 135 mm[Hg] PA-C Andie Wyatt Work Phone: [facility] 02-08-2022 03:06-0400 Body weight 68.[address] CUONG ORTIZ . [facility] Comment on above: Performed By: #### AFPMAT #### [facility] [address] [place] [address] Dr. Juan Antonio Ibarra 02-05-2022 18:24-0400 Body height 165.1 cm PAZhao Wyatt Work Phone: [facility] 02-05-2022 18:24-0400 Body temperature 98.3 [degF] PAZhao Wyatt Work Phone: [facility] 02-05-2022 18:24-0400 Body weight 67.9 kg PAZhao Wyatt Work Phone: [facility] 02-05-2022 18:24-0400 Diastolic blood pressure 68 mm[Hg] PA-Ventura Wyatt Work Phone: [facility] 02-05-2022 18:24-0400 Heart rate 92 /min SADAF Wyatt Work Phone: [facility] 02-05-2022 18:24-0400 Respiratory rate 18 /min PA-Ventura Wyatt Work Phone: [facility] 02-05-2022 18:24-0400 SaO2% (BldA) [Mass fraction] 99 % PAZhao Wyatt Work Phone: [facility] 02-05-2022 18:24-0400 Systolic blood pressure 125 mm[Hg] SADAF Wyatt Work Phone: [facility] Encounters Encounter Date Encounter Type Care Provider Facility Start: 09-30-2023 End: 09-30-2023 ambulatory CUONG DIANA Not Available Start: 09-12-2023 End: 09-12-2023 ambulatory CUONG DIANA Not Available Start: 08-15-2023 End: 08-15-2023 ambulatory ANDIE Morelia [facility] Start: 08-15-2023 End: 08-15-2023 ambulatory CUONG DIANA Not Available Start: 07-22-2023 Documentation procedure Lucio HARPER Work Phone: [facility] Comment on above: Outgoing Ca ll [...] gnancy Start: 07-18-2023 End: 07-18-2023 ambulatory ANDIE Thibodeaux [facility] Start: 07-03-2023 End: 07-03-2023 ambulatory CUONG R [facility] Start: 07-03-2023 End: 07-03-2023 Telemedicine consultation with patient Rosaura HARPER Work Phone: [facility] Comment on above: Family history of ge netic disorder (Primary Dx); Genetic testing; Fetus with trisomy 13, single gestation Start: 06-20-2023 End: 06-20-2023 ambulatory BARB KRAMER Not Available Start: 05-23-2023 End: 05-23-2023 ambulatory CUONG ORTIZ Not Available Start: 04-16-2023 ambulatory Cesar Clayton acility:[facility] Start: 02-11-2023 End: 02-11-2023 Emergency department patient visit Johnson Valencia Facility:[facility] Start: 02-11-2023 End: 02-11-2023 Emergency department patient visit SADAF Wyatt Work Phone: [facility] Work Phone: Start: 02-08-2023 End: 02-08-2023 Emergency department patient visit Elle Rhodes Facility:[facility] Start: 02-08-2023 End: 02-08-2023 Emergency department patient visit SADAF Wyatt Work Phone: [facility] Work Phone: Start: 12-19-2022 End: 12-19-2022 ambulatory Arden Orozco Facility:[facility] Start: 12-19-2022 End: 12-19-2022 Evaluation and management of inpatient SADAF Wyatt Work Phone: [facility] [place] [facility] Work Phone: Start: 12-19-2022 End: 12-19-2022 observation encounter SADAF Wyatt Work Phone: [facility] Work Phone: Start: 10-24-2022 End: 10-24-[address] CUONG ORTIZ . Facility: Start: 10-23-2022 Registered Recurring SADAF Wyatt Work Phone: [facility] Start: 08-20-2022 End: 08-20-2022 Emergency department patient visit Elle Rhodes Facility:[facility] Start: 08-20-2022 End: 08-20-2022 Emergency department patient visit SADAF Wyatt Work Phone: [facility] Work Phone: Start: 07-23-[address] CUONG ORTIZ . Facili ty:H1 Start: 07-09-2022 End: 07-09-[address] CUONG ORTIZ . Facility: Start: 07-05-2022 End: 07-07-2022 Evaluation and management of inpatient DR CUONG ORTIZ . Facility:[facility] Start: 07-02-2022 End: 07-02-2022 ambulatory [facility] Facility:[facility] Start: 06-28-2022 End: 06-28-[address] CUONG ORTIZ . Facility:[facility]1 Start: 06-21-2022 End: 06-21-2022 [facility] Facility:[facility]1 Start: 06-16-2022 End: 06-16-[address] [...] ORTIZ . Facility:[facility]1 Start: 05-24-2022 End: 05-24-2022 [facility] Facility:[facility]1 Start: 04-04-2022 End: 04-05-[address] CUONG ORTIZ . Facility:[facility]1 Start: 03-20-2022 End: 03-21-[address] CUONG ORTIZ . Facility:[facility]1 Start: 02-22-2022 End: 02-23-[address] CUONG ORTIZ . Facility:[facility]1 Start: 02-06-2022 End: 02-06-[address] CUONG ORTIZ . Facility:[facility]1 Start: 02-06-2022 End: 02-07-[address] CUONG ORTIZ . Facility:[facility]1 Start: 02-05-2022 End: 02-05-2022 Emergency department patient visit SADAF Wyatt Work Phone: [facility] Start: 12-26-2021 End: 12-27-[address] CUONG ORTIZ . Facility:[facility]1 Start: 12-07-2021 End: 12-08-[address] CUONG ORTIZ . Facility: Start: 12-27-2017 End: 12-27-2017 Patient encounter Christian Ivan Facility:[facility] Start: 12-12-2017 End: 12-12-2017 Emergency department patient visit Luke Barbosa Facility:[facility] Start: 12-12-2017 Patient encounter Facil [id number] Start: 12-07-2017 Evaluation and management of inpatient CLARA EVITA Facility:[facility] Start: 12-03-2017 Evaluation and management of inpatient CLARA JAMA Facility:[facility] Start: 12-03-2017 Patient encounter procedure CLARA JAMA Facility:[facility] Start: 12-02-2017 Evaluation and management of inpatient CLARA JAMA Facility:[facility] Start: 11-30-2017 End: 12-02-2017 Evaluation and management of inpatient CLARA TERESA JAMA [facility] Start: 11-30-2017 End: 11-30-2017 Patient encounter Salomon Nguyen Facility:[facility] Start: 11-30-2017 Patient encounter Facil [id number] Start: 11-28-2017 End: 11-28-2017 Patient encounter CLARA JAMA [facility] Start: 11-21-2017 End: 11-21-2017 Patient encounter OKSANA MASON [facility] Start: 11-21-2017 End: 11-21-2017 Patient encounter Juanita Cole Facility:[facility] Start: 11-20-2017 Patient encounter Facil [id number] Start: 11-17-2017 End: 11-17-2017 Patient encounter Christian Ivan Facility:[facility] Start: 11-16-2017 Patient encounter Facil [id number] Start: 11-07-2017 End: 11-07-2017 Patient encounter OKSANA AMADO [facility] Start: 10-31-2017 End: 10-31-2017 Patient encounter CLARA JAMA [facility] Start: 10-24-2017 End: 10-24-2017 Patient encounter MARCO ANTONIO Denton ANDIRUFUS [facility] Start: 10-16-2017 End: 10-16-2017 Patient encounter Christian A [place] Facility:[facility] Start: 10-08-2017 End: 10-08-2017 Patient encounter [facility] Start: 10-08-2017 End: 10-08-2017 Patient encounter OKSANA AMADO [facility] Start: 10-01-2017 End: 10-02-2017 Patient encounter Christian A [place] Facility:[facility] Start: 09-10-2017 End: 09-11-2017 Patient encounter LUIS DANIEL VALERI [facility] Start: 09-10-2017 End: 09-10-2017 Patient encounter KRIS Gan LAI [facility] Start: 09-10-2017 End: 09-10-2017 Patient encounter CLARA JAMA [facility] Start: 09-03-2017 End: 09-04-2017 Patient encounter Christian A [place] Facility:[facility] Start: 08-28-2017 Ambulatory [facility] Start: 08-13-2017 End: 08-14-2017 Patient encounter CLARA JAMA [facility] Start: 08-13-2017 End: 08-13-2017 Patient encounter MEREDITH BENITO [facility] Start: 08-13-2017 End: 08-13-2017 Patient encounter [facility] Start: 08-10-2017 End: 08-10-2017 Emergency department patient visit Luke Barbosa Facility:[facility] Start: 08-06-2017 End: 08-07-2017 Patient encounter Christian A [place] Facility:[facility] Start: 07-23-2017 End: 07-24-2017 Patient encounter Christian A [place] Facility:[facility] Start: 07-18-2017 End: 07-18-2017 Patient encounter CLARA AJMA [facility] Start: 07-09-2017 End: 07-10-2017 Patient encounter Christian Ivan Facility:[facility] Start: 06-25-2017 End: 06-26-2017 Patient encounter Christian Ivan Facility:[facility] Start: 06-12-2017 End: 06-12-2017 Patient encounter Christian Ivan Facility:[facility] Start: 05-14-2017 End: 05-15-2017 Patient encounter Christian Ivan Facility:[facility] Start: 05-01-2017 End: 05-02-2017 Patient encounter Salomon Nguyen Facility:[facility] Start: 04-23-2017 End: 04-23-2017 Patient encounter Yasmin Evans Facility:[facility] Start: 04-22-2017 End: 04-22-2017 Emergency department patient visit Luke Ochoaer Facility:[facility] Start: 04-18-2017 End: 04-18-2017 Emergency department patient visit Luke Barbosa Facility:[facility] Start: 04-16-2017 End: 04-17-2017 Patient encounter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
--- NOTE | 2023-10-09 14:14 | US_ITS ---
[address] [address] Patient Name: ZULEIKA WADDELL MRN: [id number] date: 1990 Sex: F Assigned Patient Location: [facility] Current Patient Location: Accession/Order Number: [id number] Exam Date: 10/09/2023 15:20 Report Date: 10/10/2023 07:18 At the request of: DAVE CUELLAR Procedure: US OB growth EXAMINATION: US OB growth HISTORY: Family history of trisomy Z82.79 COMPARISON: Ultrasound OB transvaginal 04/26/2023 FINDINGS: Heart Rate: 144.4 bpm Number: 1.0 Position: CEPHALIC Amniotic Fluid Volume: 13.1 cm Maximum Vertical Pocket: 4.1 cm BIOMETRY: BPD: 7.8 cm cm; 31 weeks 2 days; 15% HC: 29.5 cmcm; 32 weeks 4 days ; 21% AC: 29.0 cm cm; 33 weeks 0 days; 71% FL: 6.3 cm cm; 32 weeks 4 days; 47% EFW: 2033.5 grams; 53% FL/AC: 21.7 FL/BPD: 80.9 HC/AC: 1.0 GESTATIONAL AGE: Age by EDC: 32 weeks 2 days HUGO by EDC: 12/02/2023 Age by US: 32 weeks 3 days HUGO by US: 12/01/2023 US/US OB growth IMPRESSION: 1. Single live intrauterine with growth detailed above. Electronically authenticated by: FELECIA GOLDMAN Date: 10/10/2023 07:18
--- NOTE | 2023-10-09 14:14 | US_ITS ---
[address] [address] Patient Name: ZULEIKA WADDELL MRN: [id number] date: 1990 Sex: F Assigned Patient Location: US Current Patient Location: US Accession/Order Number: [id number] Exam Date: 10/09/2023 15:20 Report Date: 10/10/2023 07:13 At the request of: DAVE CUELLAR Procedure: US OB BPP w non-stress EXAMINATION: US OB BPP w non-stress HISTORY: Family history of trisomy Z82.79 COMPARISON: Ultrasound biophysical 06/28/2022 TECHNIQUE: Ultrasound biophysical profile was performed in the radiology department. BREATHING MOVEMENTS: 2.0 GROSS BODY MOVEMENTS: 2.0 TONE: 2.0 QUALITATIVE AMNIOTIC FLUID VOLUME: 2.0 PRESENTATION: CEPHALIC HEART RATE: 144.4 bpm bpm. AMNIOTIC FLUID VOLUME: 13.1 cm GESTATIONAL AGE: 32 weeks 2 days CONCLUSION: Total biophysical profile score 8.0. Electronically authenticated by: FELECIA GOLDMAN Date: 10/10/2023 07:13
[2023-10-09 14:34] VITALS: BP 149/80; PULSE 100
== END 2023-10-09 16:01 | disposition home or self-care (01) ==
LOC: US 07:08 → FBC 14:05
PROVIDERS: PCP Physician Assistant; Visit Provider Obstetrics & Gynecology
DX: Z82.79 Family history of other congenital malformations, deformations and chromosomal abnormalities (principal); Z3A.32 32 weeks gestation of pregnancy
CPT/HCPCS: 76816; 76818

== ENCOUNTER 2023-10-12 01:47 | Outpatient (OUT) | payer MEDICAID, SELFPAY ==
--- OUTSIDE RECORDS SUMMARY | 2023-10-12 01:50 | XMS_ITS | CCD ---
Author Organization [facility] Care Team Providers Care Legal Compliance Officer Name Role Phone CLARA JAMA Unavailable Unavail able SERENITY MALDONADO Unavailable Unavailable OKSANA CARO Unavailable UnavaNAGA Hull Unavailable Unavailable BARBOSA, LUKE MALIK Unavailable Unavailable PatrickSalomon terrell R Unavailable Unavailable Patrick, Salomon R Unavailable Unavailable Barbosa, Luke Unavailable Unavailable Culbertson, Christian A Unavailable Unavailable Barbosa, Luke Unavailable Unavailable Culbertson, Christian A Unavailable Unavailable Barbosa, Luke Unavailable Unavailable Culbertson, Christian A Unavailable Unavailable Barbosa, Luke Unavailable Unavailable Culbertson, Christian A Unavailable Unavailable Barbosa, Luke Unavailable Unavailable Culbertson, Christian A Unavailable Unavailable Culbertson, Christian A Unavailable Unavailable Barbosa, Luke Unavailable Unavailable Culbertson, Christian A Unavailable Unavailable Barbosa, Luke Unavailable Unavailable Culbertson, Christian A Unavailable Unavailable Culbertson, Christian A Unavailable Unavailable Barbosa, Luke Unavailable Unavailable Barbosa, Luke Unavailable Unavailable Woo, Emiliano Unavailable Unavailable Woo, Emiliano Unavailable Unavailable Patrick, Salomon R Unavailable Unavailable Barbosa, Luke Unavailable Unavailable Barbosa, Luke Unavailable Unavailable Oscar, Jag W Unavailable Unavailable Oscar, Jag W Unavailable Unavailable Shekhar, Christian A Unavailable Unavailable Barbosa, Luke Unavailable Unavailable Culbertson, Christian A Unavailable Unavailable Barbosa, Luke Unavailable [...] Juanita Unavailable Unavailable Barbosa, Luke Unavailable Unavailable Culbertson, Christian A Unavailable Unavailable Shekhar, Christian A Unavailable Unavailable Barbosa, Luke Unavailable Unavailable Shekhar, Christian A Unavailable Unavailable Barbosa, Luke Unavailable Unavailable Barbosa, Luke Unavailable Unavailable Richford, Jag W Unavailable Unavailable Oscar, Jag W Unavailable Unavailable Shekhar, Christian A Unavailable Unavailable Barbosa, Luke Unavailable Unavailable Gamaliel Savage M Unavailable Unavailable Gamaliel Savage M Unavailable Unavailable Barbosa, Luke Unavailable Unavailable Culbertson, Christian A Unavailable Unavailable Barbosa, Luke Unavailable [...] Provider SADAF Wyatt Primary Care Provider Meagan [facility] Elle E Emergency Provider DIANA .DR ACOSTA Consulting Unavailable [facility] Primary Care Unavailable DIANA ., DR ACOSTA Attending Unavailable DIANA ., DR ACOSTA Admitting Unavailable DIANA ., DR ACOSTA Admitting Unavailable DIANA ., DR ACOSTA Attending Unavailable [facility] Primary Care Unavailable DIANA ., DR ACOSTA Consulting Unavailable SUSI, DR FELECIA Chadwick Consulting Unavailable [facility] Primary Care Unavailable KARASIK ., DR CAMACHO Admitting Unavailabl e KARASIK ., DR CAMACHO Attending Unavailabl e KARASIK ., DR CAMACHO Consulting Unavailabl e WEST, DR GAMALIEL Fischer Consulting Unavailable DIANA ., DR ACOSTA Consulting Unavailable ZIEBER, DR FELECIA Chadwick Consulting Unavailable WILLIAMS ., BARB Admitting Unavailable WILLIAMS ., BARB Attending Unavailable [facility] Primary Care Unavailable WILLIAMS ., BARB Consulting Unavailable DIANA ., DR ACOSTA Admitting Unavailable DIANA ., DR ACOSTA Attending Unavailable [facility] Primary Care Unavailable DIANA ., DR ACOSTA Consulting Unavailable [facility] Primary Care Unavailable KARASIK ., DR CAMACHO Admitting Unavailabl e KARASIK ., DR CAMACHO Attending Unavailabl e KARASIK ., DR CAMACHO Consulting Unavailabl e DIANA ., DR ACOSTA Admitting Unavailable DIANA ., DR ACOSTA Attending Unavailable [facility] Primary Care Unavailable DIANA ., DR ACOSTA Consulting Unavailable ZIEBER, DR FELECIA Chadwick Consulting Unavailable DIANA ., DR ACOSTA Admitting Unavailable DIANA ., DR ACOSTA Attending Unavailable [facility] Primary Care Unavailable DIANA ., DR ACOSTA Consulting Unavailable ZIEBER, DR FELECIA Chadwick Consulting Unavailable PRATIMA, BRODIE Consulting Unavailable DIANA ., DR ACOSTA Consulting Unavailable [facility] Primary Care Unavailable DIANA ., DR ACOSTA Attending Unavailable DIANA ., DR ACOSTA Admitting Unavailable ZIEBER, DR FELECIA Chadwick Consulting Unavailable DIANA ., DR ACOSTA Consulting Unavailable [facility] Primary Care Unavailable DIANA ., DR ACOSTA Attending Unavailable DIANA ., DR ACOSTA Admitting Unavailable DIANA ., DR ACOSTA Admitting Unavailable DIANA ., DR ACOSTA Attending Unavailable [facility] Primary Care Unavailable DIANA ., DR ACOSTA Consulting Unavailable ZIEBER, DR FELECIA Chadwick Consulting Unavailable DIANA ., DR ACOSTA Admitting Unavailable DIANA ., DR ACOSTA Attending Unavailable [facility] Primary Care Unavailable WEST, DR GAMALIEL Fischer Consulting Unavailable DIANA ., DR ACOSTA Consulting Unavailable [facility] Primary Care Unavailable KARASIK ., DR CAMACHO Admitting Unavailabl e KARASIK ., DR CAMACHO Attending Unavailabl e KARASIK ., DR CAMACHO Consulting Unavailabl e DIANA ., DR ACOSTA Consulting Unavailable ZIEBER, DR FELECIA Chadwick Consulting Unavailable DIANA ., DR ACOSTA Admitting Unavailable DIANA ., DR ACOSTA Attending Unavailable [facility] Primary Care Unavailable WEST, DR GAMALIEL Fischer Consulting Unavailable DIANA ., DR ACOSTA Consulting Unavailable DIANA ., DR ACOSTA Admitting Unavailable DIANA ., DR ACOSTA Attending Unavailable [facility] Primary Care Unavailable DIANA ., DR ACOSTA Consulting Unavailable DIANA ., DR ACOSTA Admitting Unavailable DIANA ., DR ACOSTA Attending Unavailable [facility] Primary Care Unavailable DIANA ., DR ACOSTA Consulting Unavailable ZIEBER, DR FELECIA Chadwick Consulting Unavailable DIANA ., DR ACOSTA Admitting Unavailable DIANA ., DR ACOSTA Attending Unavailable [facility] Primary Care Unavailable DIANA ., DR ACOSTA Consulting Unavailable DIANA ., DR ACOSTA Admitting Unavailable DIANA ., DR ACOSTA Attending Unavailable [facility] Primary Care Unavailable DIANA ., DR ACOSTA Consulting Unavailable [facility] Primary Care Unavailable DIANA ., DR ACOSTA Attending Unavailable DIANA ., DR ACOSTA Admitting Unavailable DIANA ., DR ACOSTA Admitting Unavailable DIANA ., DR ACOSTA Attending Unavailable [facility] Primary Care Unavailable DIANA ., DR ACOSTA Admitting Unavailable DIANA ., DR ACOSTA Attending Unavailable [facility] Primary Care Unavailable KARASIK ., DR CAMACHO Consulting Unavailabl e DIANA ., DR ACOSTA Consulting Unavailable DIANA ., DR ACOSTA Procedure Practitioner Unavail able ORLANDO PRASAD Consulting Unavailable JACQUES FLETCHER Consulting Unavailable DIANA ., DR ACOSTA Admitting Unavailable DIANA ., DR ACOSTA Attending Unavailable [facility] Primary Care Unavailable KARASIK ., DR CAMACHO Consulting Unavailabl e ZIEBER, DR FELECIA Chadwick Consulting Unavailable SADAF Wyatt Primary Care Provider MD Farhan Jean Attending Provider Poe, DO Oscar Emergency Provider Itzkowitz, DO Arden Admit Provider [phone] Itzkocece, DO Arden Attending Provider [phone] FRED Ventura Other Provider UnavailMD Juan Edwards Other Provider BRISA MoniqueC Ailyn Other Provider MD Jacques Valerio Other Provider MD Edith Urias Other Provider SADAF Wyatt Primary Care Provider [place], MASTER PRINTER-BC Elle E Emergency Provider BRANNON Valencia Emergency [...] [BEES] Propensity to adverse reactions (disorder) 8 [facility] Repository (2 sources) Mold spore; Translations: [MOLD SPORES] Propensity to adverse reactions (disorder) 8 [facility] Repository (18 sources) Penicillins; Translations: [PENICILLINS] Propensity to adverse reactions to drug (disorder) 4 Hives [facility] Repository (12 sources) Sulfonamides (Antibiotic); Translations: [SULFA (SULFONAMIDE ANTIBIOTICS)] Propensity to adverse reactions to drug (disorder) 8 [facility] Repository (1 source) Bee/Wasp/Ant venom; Translations: [Bee Stings] Propensity to adverse reactions to drug (disorder) [facility] Repository (1 source) mold extract; Translations: [Mold] Drug Allergy [facility] Repository (1 source) Sulfonamides (Antibiotic); Translations: [sulfa drugs] Propensity to adverse reactions to drug (disorder) [facility] Repository (4 sources) bee venom; Translations: [BEE VENOM] Propensity to adverse reactions to drug (disorder) 8 [facility] Repository (1 source) OTHER; Translations: [OTHER] Propensity to adverse reactions to food (disorder) 8 [facility] Repository (1 source) MOLDS & SMUTS; Translations: [MOLDS & SMUTS] Propensity to adverse reactions to drug (disorder) 8 [facility] Repository (4 sources) SULFA ANTIBIOTICS; Translations: [SULFA ANTIBIOTICS] Propensity to adverse reactions to drug (disorder) 8 [facility] Repository (1 source) Sulfonamides (Antibiotic) Drug allergy (disorder) 4 [facility] Repository (4 sources) Bee Venom Protein (Honey Bee); Translations: [BEE VENOM PROTEIN (HONEY BEE)] Propensity to adverse reactions to drug 2 [facility] (1 source) Penicillin Drug Allergy 2 Repository (1 source) Sulfacetamide Drug Allergy 2 Repository Medications Current Medications Medication Drug Class(es) [...] mouth in the morning. 0 02/27/2023 Active Albert Lea (No Known Home Meds) (2 sources) Start: 12-18-2022 Albert Lea (No Known Home Meds) Active December 18, [...] (-1 ORAL) Take by mouth. 0 Active Lzhbmxkb-Qow-Qg-FA (, w/Iron & FA,) 27-0.8 MG tablet (3 sources) Amsnfqjm-Bpa-Uh-FA (, w/Iron & FA,) 27-0.8 MG tablet 1 (one) time each day at the same time. 0 Active LX-Mqn-AO-[place]-3 ( Gummies/DHA & FA) 0.4-32.5 MG chewable tablet (3 sources) Start: 07-09-2023 End: 08-08-2023 LT-Cak-DK-[place]-3 ( Gummies/DHA & FA) 0.4-32.5 MG chewable [...] Onset: 11-30-2017 Unclassified (3 sources) M/C OTH GARDE MANAGER 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 NA/UNS; Translations: [M/C OTH GARDE MANAGER 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 NA/UNS] Onset: 07-05-2022 Unclassified (1 [...] 12-12-2021 Episodic Unclassified (1 source) M/C OTH GARDE MANAGER 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 NA/UNS; Translations: [M/C OTH GARDE MANAGER 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 NA/UNS] Onset: 07-02-2022 Results Test Name Value Interpretation Reference Range Facility AFP, SERUM, OPEN SPINA BIFID Aon 07-20-2023 AFP MOM 1.[address] [facility] AFP VALUE 70.2 ng/mL . [facility] COMMENT: Comment . [facility] Comment on above: Alma Chaudhary , Ph.D., [facility] Director References: Available Upon Request. Multiples Of Median Cutoffs For AFP Elevations Briscoe 2.5 Black 2.8 IDD 2.0 Twins 4.5 Abbreviation Definitions IDD - Insulin Dep Diabetes OSBR - Open Spina Bifida Risk For further inquiries contact [facility] at [phone]. This test was developed and its performance characteristics determined by [employer]. It has not been cleared or approved by the Food and Drug Administration. Performed at: [facility] [place], [place] [id number] All Around Presser: Oz Harkins [facility], Phone: [phone] GEST. AGE ON COLLECTION DATE 20.[address] [facility] GESTAT. AGE BASED ON LMP . [facility] Comment on above: Recalculations are n ot recommended when gestational dating by LMP and ultrasound are within 10 days. INSULIN DEP DIABETES No . [facility] INTERPRETATION Comment . [facility] Comment on above: Interpretation: Scre en Negative [...] Services to discuss available options. The [employer] recommends amniocentesis be offered to women age 35 and older. MATERNAL AGE AT HUGO 33.[address] [facility] MULTIPLE GESTATION No . [facility] OSBR RISK 1 IN [address] . [facility] RACE . [facility] RESULTS Report . [facility] TEST RESULTS: Negative . [facility] WEIGHT [address] [facility] N N LMP [id number] 3 16 N 1 Y 159 N N N N White/ [facility] Urinalysis macro (dipstick) panel (U)on 07-18-2023 Bilirubin, UA Negative Negative - 4(70) +++ mg/dL [facility] Blood, UA Negative Negative - 50 Rakesh/mcL [facility] Clarity, UA Clear [facility] Color, UA Yellow [facility] Glucose, UA Negative Negative - 1999(110) ++++ mg/dL [facility] Interpretation and review of laboratory results Normal [facility] Ketones, UA Negative Negative - 160(16) ++++ mg/dL [facility] Leukocytes, UA Negative Negative - 500+++ Matti/mcL [facility] Nitrite, UA Negative Negative - Positive [facility] pH, UA 5.5 5 - [address] [facility] Protein, UA Negative Negative - 1999(20) ++++ mg/dL [facility] Spec Grav, UA 1.020 1 - 1.[address] [facility] Urobilinogen, UA 1.0 0.2 - 12 mg/dL [facility] ABO/Rh Retypeon 12-19-2022 ABO/RH Recheck Result Positive Normal [facility] Comment on above: Result Comment: PERF ORMED BY: [facility] [address] [address] PATHOLOGIST SUPERVISOR ASBESTOS REMOVAL MALVIN MEDLEY M.D. Amphetamine Screen Ql (U)Ord ered By: Oscar Poe on 12-19-2022 Amphetamines Ql (U) Negative Negative [facility] Amylaseon 12-19-2022 Amylase [Catalytic activity/Vol] 35 U/L Normal 29-103 Comment on above: Performed By: #### C BC, CREAT, GLU, LYTES, AST, ETOH, BARB, LIPASE, CK, BUN ####[facility] [address] Aspartate Amino Transferaseo n 12-19-2022 AST [Catalytic activity/Vol] 26 U/L Normal 13-39 Comment on above: Performed By: #### C BC, CREAT, GLU, LYTES, AST, ETOH, BARB, LIPASE, CK, BUN ####[facility] Automated erythrocytes count in urine sediment (number/area)Ordered By: Oscar Poe on 12-19-2022 RBC Auto (Urine sed) [#/Area] 5-9 [HPF] 0-4 Automated leukocytes count i n urine sediment (number/area)Ordered By: Oscar Poe on 12-19-2022 WBC Auto (Urine sed) [#/Area] 10-19 [HPF] 0-4 Barbiturates [Presence] in U rine by Screen methodOrdered By: Oscar Poe on 12-19-2022 Barbiturates Screen Ql (U) Negative Negative Benzodiazepines Screen Ql (U )Ordered By: Oscar Poe on 12-19-2022 Benzodiazepines Ql (U) Negative Negative [facility] Benzoylecgonine [Presence] i n Urine by Screen methodOrdered By: Oscar Poe on 12-19-2022 Benzoylecgonine Screen Ql (U) Negative Negative Bilirubin Test strip Ql (U)O rdered By: Oscar Poe on 12-19-2022 Bilirubin Ql (U) Negative Negative [facility] Blood Urea Nitrogenon 2022 Urea nitrogen [Mass/Vol] 21 mg/dL Normal 7-25 Comment on above: Performed By: #### C BC, CREAT, GLU, LYTES, AST, ETOH, BARB, LIPASE, CK, BUN ####[facility] cervical spine wo conon 0 12-19-2022 CT cervical spine wo con [facility] [address] [place] [address] CT Scan Report Signed Patient: Zuleika Wyatt MR#: [id number] : 1990 Acct:[id number] Age/Sex: 32 / F ADM Date: 12/19/22 Loc: Room: 5K3117-7 Type: ADM INOo Attending Dr: Arden Orozco DO Copies to: DO Arden Jefferson DO Ordering Provider: Oscar Poe DO Date of Service: 12/18/22 CT/CT cervical spine wo con: f ([id number]) CT/CT head/brain wo con: f CT BRAIN [...] Pimentel Jr., D.O.12/19/2022 10:25 AM Dictation Location: [place] [address] Transcribed By: DONTE 12/19/22 1025 Dictated By: Rah Pimentel Jr, DO 12/19/22 1016 Signed By: 12/19/22 [address] [facility] [address] head/brain wo conon 12-19 CT head/brain wo [facility] [address] [place] [address] CT Scan Report Signed Patient: Zuleika Wyatt MR#: [id number] : 1990 Acct:[id number] Age/Sex: 32 / F ADM Date: 12/19/22 Loc: Room: [address] [place] [address] Type: DIS INOo Attending Dr: Arden Orozco [...] Pimentel Jr., D.O.12/19/2022 3:28 PM Dictation Location: [place] [address] Transcribed By: [facility] 12/19/22 1528 Dictated By: Rah Pimentel Jr, DO 12/19/22 1524 Signed By: 12/19/[address] lumbar spine wo conon CT lumbar spine wo con [facility] [place] [address] CT Scan Report Signed Patient: Zuleika Wyatt MR#: [id number] : 1990 Acct:[id number] Age/Sex: 32 / F ADM Date: 12/19/22 Loc: Room: [address] [place] [address] Type: ADM INOo Attending Dr: Arden Orozco DO Copies to: DO Arden Jefferson DO Ordering Provider: Oscar Poe DO Date of Service: 12/18/22 CT/CT thoracic spine wo con: f ([id number]) CT/CT lumbar spine wo con: f CT [...] narrowing or hypertrophy. The ribs within the pfxxv-ra-byjb appear intact. No paraspinal soft tissue abnormalities are present. The ascending aorta is mildly ectatic. The heart is not fully imaged though it is at least borderline prominent. There is no consolidation, pleural effusion or pneumothorax within the qyaqk-bg-xxbn. No lumbar compression fractures are identified. There [...] The intra-abdominal and pelvic structures within the azaxl-dr-hpgk show no contributory findings. CT/CT thoracic spine wo con IMPRESSION: MILD THORACIC SCOLIOSIS. NO ACUTE BONY INJURY INVOLVING THE THORACIC OR LUMBAR SPINE. Impression dictated by: Adela Mahan M.D.12/19/2022 10:36 AM Dictation Location: [place] [address] Transcribed By: [facility] 12/19/22 1036 Dictated By: Adela Mahan MD 12/19/22 1026 Signed By: 12/19/22 1036 Normal Cannabinoids [Presence] in U rine by Screen methodOrdered By: Oscar Poe on 12-19-2022 Cannabinoids Screen Ql (U) Positive Negative Comment on above: These are unconfirme d results and should not be used for legal purposes. Drug Cut-Off Concentration: AMPH 1000 ng/mL SEEMA 200 ng/mL LAZ 200 ng/mL COCM 300 ng/mL OP 300 ng/mL PCP 25 ng/mL THC 20 ng/mL Color Auto (U)Ordered By: Fernando Poe on 12-19-2022 Color (U) Yellow Yellow Complete Blood Count Auto Di ffon 12-19-2022 Basophils (Bld) [#/Vol] 0.1 10*3/uL Normal 0.0-0.2 Comment on above: Result Comment: PERF ORMED BY: [facility] [address] [place] [facility] [phone] PATHOLOGIST SUPERVISOR ASBESTOS REMOVAL MALVIN MEDLEY M.D. Performed By: #### C BC, CREAT, GLU, LYTES, AST, ETOH, BARB, LIPASE, CK, BUN ####[address] Basophils/100 WBC (Bld) 0.7 % Normal . Comment on above: Performed By: #### C BC, CREAT, GLU, LYTES, AST, ETOH, BARB, LIPASE, CK, BUN ####[address] Eosinophils (Bld) [#/Vol] 0.0 10*3/uL Normal 0.0-0.45 Comment on above: Performed By: #### C BC, CREAT, GLU, LYTES, AST, ETOH, BARB, LIPASE, CK, BUN ####[address] Eosinophils/100 WBC (Bld) 0.2 % Normal . Comment on above: Performed By: #### C BC, CREAT, GLU, LYTES, AST, ETOH, BARB, LIPASE, CK, BUN ####[address] Erythrocyte distribution width (RBC) [Ratio] 14.4 % Normal 11.9-15.3 Comment on above: Performed By: #### C BC, CREAT, GLU, LYTES, AST, ETOH, BARB, LIPASE, CK, BUN ####[address] Hematocrit (Bld) [Volume fraction] 36.2 % Normal 34.0-46.4 Comment on above: Performed By: #### C BC, CREAT, GLU, LYTES, AST, ETOH, BARB, LIPASE, CK, BUN ####[address] Hemoglobin (Bld) [Mass/Vol] 11.9 g/dL Normal 11.8-15.4 Comment on above: Performed By: #### C BC, CREAT, GLU, LYTES, AST, ETOH, BARB, LIPASE, CK, BUN ####[address] Lymphocytes (Bld) [#/Vol] 2.2 10*3/uL Normal 1.00-4.8 Comment on above: Performed By: #### C BC, CREAT, GLU, LYTES, AST, ETOH, BARB, LIPASE, CK, BUN ####[address] Lymphocytes/100 WBC (Bld) 21.8 % Normal . Comment on above: Performed By: #### C BC, CREAT, GLU, LYTES, AST, ETOH, BARB, LIPASE, CK, BUN ####[address] MCH (RBC) [Entitic mass] 26.9 pg Normal 24.7-34.3 Comment on above: Performed By: #### C BC, CREAT, GLU, LYTES, AST, ETOH, BARB, LIPASE, CK, BUN ####[address] MCV (RBC) [Entitic vol] 82.1 fL Normal 80-100 Comment on above: Performed By: #### C BC, CREAT, GLU, LYTES, AST, ETOH, BARB, LIPASE, CK, BUN ####[address] Mean Corpuscular HGB Conc 32.8 g/dL Normal 32.0-35.0 Comment on above: Performed By: #### C BC, CREAT, GLU, LYTES, AST, ETOH, BARB, LIPASE, CK, BUN ####[address] Monocytes (Bld) [#/Vol] 0.8 10*3/uL Normal 0.0-0.8 Comment on above: Performed By: #### C BC, CREAT, GLU, LYTES, AST, ETOH, BARB, LIPASE, CK, BUN ####[address] Monocytes/100 WBC (Bld) 22.19 % High 0.00-20.00 Comment on above: Result Comment: For adults in ED, MDW > 20.0 may be associated with a higher risk of sepsis during the first 12 hrs of hospital admission Performed By: #### C BC, CREAT, GLU, LYTES, AST, ETOH, BARB, LIPASE, CK, BUN ####[address] Monocytes/100 WBC (Bld) 7.4 % Normal . Comment on above: Performed By: #### C BC, CREAT, GLU, LYTES, AST, ETOH, BARB, LIPASE, CK, BUN ####[address] Neutrophils (Bld) [#/Vol] 7.2 10*3/uL Normal 1.8-7.7 Comment on above: Performed By: #### C BC, CREAT, GLU, LYTES, AST, ETOH, BARB, LIPASE, CK, BUN ####[address] Neutrophils/100 WBC (Bld) 69.9 % Normal . Comment on above: Performed By: #### C BC, CREAT, GLU, LYTES, AST, ETOH, BARB, LIPASE, CK, BUN ####[address] NRBC% 0.1 /100{WBC} Normal 0-0.5 Comment on above: Performed By: #### C BC, CREAT, GLU, LYTES, AST, ETOH, BARB, LIPASE, CK, BUN ####[address] Platelet mean volume (Bld) [Entitic vol] 8.1 fL Normal 6.3-10.7 Comment on above: Performed By: #### C BC, CREAT, GLU, LYTES, AST, ETOH, BARB, LIPASE, CK, BUN ####[address] Platelets (Bld) [#/Vol] 223 10*3/uL Normal 150-450 Comment on above: Performed By: #### C BC, CREAT, GLU, LYTES, AST, ETOH, BARB, LIPASE, CK, BUN ####[address] RBC (Bld) [#/Vol] 4.42 10*6/uL Normal 3.60-5.00 [facility] Comment on above: Performed By: #### C BC, CREAT, GLU, LYTES, AST, ETOH, BARB, LIPASE, CK, BUN ####[address] WBC (Bld) [#/Vol] 10.3 10*3/uL Normal 3.8-11.6 [facility] Comment on above: Performed By: #### C BC, CREAT, GLU, LYTES, AST, ETOH, BARB, LIPASE, CK, BUN ####[address] Creatine Kinaseon 12-19-2022 CK [Catalytic activity/Vol] 50 U/L Normal 30-223 Comment on above: Result Comment: PERF ORMED BY: [facility] [address] [place] [address] PATHOLOGIST SUPERVISOR ASBESTOS REMOVAL MALVIN MEDLEY M.D. Performed By: #### C BC, CREAT, GLU, LYTES, AST, ETOH, BARB, LIPASE, CK, BUN ####[place] [id number] [facility] Creatinineon 12-19-2022 Creatinine [Mass/Vol] 0.84 mg/dL Normal 0.60-1.[address] [facility] Comment on above: Performed By: #### C BC, CREAT, GLU, LYTES, AST, ETOH, BARB, LIPASE, CK, BUN ####[address] [place] [address] [place] Creatinine Clr [facility]c Pharmacy 98.76 [facility] Comment on above: Performed By: #### C BC, CREAT, GLU, LYTES, AST, ETOH, BABR, LIPASE, CK, BUN ####[facility] [place] [address] [place] GFR/1.73 sq M.predicted MDRD (S/P/Bld) [Vol rate/Area] mL/min/{1.73_m2} [facility] Comment on above: Performed By: #### C BC, CREAT, GLU, LYTES, AST, ETOH, BARB, LIPASE, CK, BUN ####[facility] [place] [address] [place] Dipstick and Microscopicon 0 12-19-2022 Appearance (U) Clear Normal Clear Comment on above: Order Comment: Name Collection Type:: Clean-Voided Midstream Performed By: #### U RDS, UHCG, CUU, ADDONUAPLUS #### [facility] [address] [place] [address] [place] Bacteria,Urine None Seen Normal None Seen Comment on above: Order Comment: Name Collection Type:: Clean-Voided Midstream Performed By: #### U RDS, UHCG, CUU, ADDONUAPLUS #### [facility] [address] [place] [address] [place] Bilirubin,Urine Negative Normal Negative Comment on above: Order Comment: Name Collection Type:: Clean-Voided Midstream Performed By: #### U RDS, UHCG, CUU, ADDONUAPLUS #### [facility] [address] [place] [address] [place] Color (U) Yellow Normal Yellow Comment on above: Order Comment: Name Collection Type:: Clean-Voided Midstream Performed By: #### U RDS, UHCG, CUU, ADDONUAPLUS #### [facility] [address] [place] [address] [place] Glucose Ql (U) Normal Normal Normal Comment on above: Order Comment: Name Collection Type:: Clean-Voided Midstream Performed By: #### U RDS, UHCG, CUU, ADDONUAPLUS #### [facility] [address] [place] [address] Hyaline Casts,Urine 0-8 Normal 0-8 [facility] Comment on above: Order Comment: Name Collection Type:: Clean-Voided Midstream Performed By: #### U RDS, UHCG, CUU, ADDONUAPLUS #### [address] Ketones Ql (U) 1+ High Negative Comment on above: Order Comment: Name Collection Type:: Clean-Voided Midstream Performed By: #### U RDS, UHCG, CUU, ADDONUAPLUS #### [address] Leukocyte esterase Test strip Ql (U) 2+ High Negative Comment on above: Order Comment: Name Collection Type:: Clean-Voided Midstream Performed By: #### U RDS, UHCG, CUU, ADDONUAPLUS #### [facility] [address] [place] [address] Nitrite,Urine Negative Normal Negative Comment on above: Order Comment: Name Collection Type:: Clean-Voided Midstream Performed By: #### U RDS, UHCG, CUU, ADDONUAPLUS #### [facility] [address] [place] [address] [place] Occult Blood,Urine Negative Normal Negative [facility] Comment on above: Order Comment: Name Collection Type:: Clean-Voided Midstream Performed By: #### U RDS, UHCG, CUU, ADDONUAPLUS #### [facility] [address] [place] [address] pH (U) 5.5 [pH] Normal 5.0-9.0 Comment on above: Order Comment: Name Collection Type:: Clean-Voided Midstream Performed By: #### U RDS, UHCG, CUU, ADDONUAPLUS #### [address] [place] [address] [place] Protein,Urine Negative Normal Negative Comment on above: Order Comment: Name Collection Type:: Clean-Voided Midstream Performed By: #### U RDS, UHCG, CUU, ADDONUAPLUS #### [place] [address] [place] RBC,Urine 5-9 High 0-4 Comment on above: Order Comment: Name Collection Type:: Clean-Voided Midstream Performed By: #### U RDS, UHCG, CUU, ADDONUAPLUS #### [address] Specificy [place],Urine 1.025 Normal 1.001-1.03 0 Comment on above: Order Comment: Name Collection Type:: Clean-Voided Midstream Performed By: #### U RDS, UHCG, CUU, ADDONUAPLUS #### [facility] [address] [place] [address] Squamous Epithelial Cell,Urine 3-4 High 0-2 Comment on above: Order Comment: Name Collection Type:: Clean-Voided Midstream Performed By: #### U RDS, UHCG, CUU, ADDONUAPLUS #### [facility] [address] [place] [address] Urobilinogen,Urine Normal Normal Normal [facility] Comment on above: Order Comment: Name Collection Type:: Clean-Voided Midstream Performed By: #### U RDS, UHCG, CUU, ADDONUAPLUS #### [facility] [address] [place] [address] [place] WBC,Urine 10-19 High 0-4 Comment on above: Order Comment: Name Collection Type:: Clean-Voided Midstream Performed By: #### U RDS, UHCG, CUU, ADDONUAPLUS #### [place] [address] [place] Drug Screen,Urineon 12-20-19 Amphetamine Screen,Urine Negative Normal Negative Comment on above: Performed By: #### U RDS, UHCG, CUU, ADDONUAPLUS #### [address] Barbiturate Screen,Urine Negative Normal Negative Comment on above: Performed By: #### U RDS, UHCG, CUU, ADDONUAPLUS #### [address] Benzodiazepines Screen,Urine Negative Normal Negative Comment on above: Performed By: #### U RDS, UHCG, CUU, ADDONUAPLUS #### [address] Cannabinoid Screen,Urine Positive High Negative Comment on above: Result Comment: Thes e are unconfirmed results and should not be used for legal purposes. Drug Cut-Off Concentration: AMPH 1000 ng/mL SEEMA 200 ng/mL LAZ 200 ng/mL COCM 300 ng/mL OP 300 ng/mL PCP 25 ng/mL THC 20 ng/mL PERFORMED BY: [place] [address] PATHOLOGIST [employer]PER[employer] MALVIN MEDLEY M.D. Performed By: #### U RDS, UHCG, CUU, ADDONUAPLUS #### [address] Cocaine Screen,Urine Negative Normal Negative [facility] Comment on above: Performed By: #### U RDS, UHCG, CUU, ADDONUAPLUS #### [place] [address] [place] Opiate Screen,Urine Negative Normal Negative [facility] Comment on above: Performed By: #### U RDS, UHCG, CUU, ADDONUAPLUS #### [place] [address] [place] Phencyclidine Screen,Urine Negative Normal Negative Comment on above: Performed By: #### U RDS, UHCG, CUU, ADDONUAPLUS #### [address] ECG 12 lead ECGon 12-19-2022 ECG 12 lead ECG [facility] [address] [place] [address] Electrocardiograph Report Signed Patient: Zuleika Wyatt MR#: [id number] : 1990 Acct:[id number] Age/Sex: 32 / F ADM Date: 12/19/22 Loc: Room: [address] [place] [address] Type: DIS INOo Attending Dr: Arden Orozco [...] ECGs available Confirmed by OSCAR POE DO ([id number]) on 12/19/2022 10:18:39 PM Referred By: Electronically Signed By:OSCAR POE DO Transcribed By: MUS Signed By Oscar Poe DO 12/19 Normal Electrolyteson 12-19-2022 Anion gap [Moles/Vol] 14.5 mmol/L Normal 6.0-15.0 [facility] Comment on above: Performed By: #### C BC, CREAT, GLU, LYTES, AST, ETOH, BARB, LIPASE, CK, BUN ####[facility] Chloride [Moles/Vol] 105 mmol/L Normal 98-107 [facility] Comment on above: Performed By: #### C BC, CREAT, GLU, LYTES, AST, ETOH, BARB, LIPASE, CK, BUN ####[facility] [place] [id number] [facility] CO2 [Moles/Vol] 20.0 mmol/L Low 21.0-31.0 [facility] Comment on above: Performed By: #### C BC, CREAT, GLU, LYTES, AST, ETOH, BARB, LIPASE, CK, BUN ####[place] [id number] [address] Potassium [Moles/Vol] 3.5 mmol/L Normal 3.5-5.[address] [facility] Comment on above: Performed By: #### C BC, CREAT, GLU, LYTES, AST, ETOH, BARB, LIPASE, CK, BUN ####[address] Sodium [Moles/Vol] 136 mmol/L Normal 136-145 [facility] Comment on above: Performed By: #### C BC, CREAT, GLU, LYTES, AST, ETOH, BARB, LIPASE, CK, BUN ####[address] Ethyl Alcohol Profileon 07 Ethanol [Mass/Vol] mg/dL Normal [facility] Comment on above: Performed By: #### C BC, CREAT, GLU, LYTES, AST, ETOH, BARB, LIPASE, CK, BUN ####[address] Percent Ethanol Not performed Normal [facility] Comment on above: Result Comment: PERF ORMED BY: [facility] [address] [place] [address] PATHOLOGIST SUPER[employer] MALVIN MEDLEY M.D. Performed By: #### C BC, CREAT, GLU, LYTES, AST, ETOH, BARB, LIPASE, CK, BUN ####[place] [id number] [facility] Glucoseon 12-19-2022 Glucose [Mass/Vol] 93 mg/dL Normal 70-100 [facility] Comment on above: Result Comment: [place] Glucose Reference Range is dependent on time and content of last meal. Glucose of more than 200 mg/dL in a nonstressed, ambulatory subject supports the diagnosis of Diabetes Mellitus. ADA recommended reference range Performed By: #### C BC, CREAT, GLU, LYTES, AST, ETOH, BARB, LIPASE, CK, BUN ####[facility] [address] HCG ( test) IA.rapi d Ql (U)Ordered By: Oscar Poe on 12-19-2022 HCG ( test) Ql (U) Negative HCG,Qualitative Serumon 07-0 HCG,Qualitative Serum Negative Normal [facility] Comment on above: Result Comment: PERF ORMED BY: [place] [address] PATHOLOGIST SUPER[employer] MALVIN MEDLEY M.D. Performed By: #### H CGQUAL #### [address] HCG,Urineon 12-19-2022 Beta HCG ( test) Ql (U) Negative Normal Comment on above: Order Comment: Name Collection Type:: Clean-Voided Midstream Result Comment: PERF ORMED BY: [place] [address] PATHOLOGIST SUPER[employer] MALVIN MEDLEY M.D. Performed By: #### U RDS, UHCG, CUU, ADDONUAPLUS #### [facility] [address] [place] [address] Ketones Auto test strip (U) [Mass/Vol]Ordered By: Oscar Poe on 12-19-2022 Ketones (U) [Mass/Vol] 1+ Negative [facility] - UrinalysisOrder ed By: Oscar Poe on 12-19-2022 Hyaline casts LM Ql (Urine sed) 0-8 [LPF] 0-8 Lipaseon 12-19-2022 Lipase [Catalytic activity/Vol] 29.0 U/L Normal 11.0-82.0 Comment on above: Result Comment: PERF ORMED BY: [facility] [address] [place] [address] PATHOLOGIST SUPER[employer] MALVIN MEDLEY M.D. Performed By: #### C BC, CREAT, GLU, LYTES, AST, ETOH, BARB, LIPASE, CK, BUN ####[address] [place] [address] [facility] Nitrite Test strip Ql (U)Ord ered By: Oscar Poe on 12-19-2022 Nitrite Ql (U) Negative Negative Opiates [Presence] in Urine by Screen methodOrdered By: Oscar Poe on 12-19-2022 Opiates Screen Ql (U) Negative Negative [facility] Phencyclidine Screen Ql (U)O rdered By: Oscar Poe on 12-19-2022 Phencyclidine Ql (U) Negative Negative [facility] Protein Auto test strip (U) [Mass/Vol]Ordered By: Oscar Poe on 12-19-2022 Protein (U) [Mass/Vol] Negative Negative [facility] Specific gravity Auto test s trip (U) [Rel density]Ordered By: Oscar Poe on 12-19-2022 Specific gravity (U) [Rel density] 1.025 1.001-1.03 0 Squamous epithelial cells de tection in urine sediment by light microscopyOrdered By: Oscar Poe on 12-19-2022 Epithelial cells.squamous LM Ql (Urine sed) 3-4 [HPF] 0-2 Type and Screenon 12-19-2022 ABO and Rh group Nom (Bld) Blood group A Rh(D) positive Normal Comment on above: Result Comment: PERF ORMED BY: [facility] [address] [place] [address] PATHOLOGIST SUPER[employer] MALVIN MEDLEY M.D. Urine Cultureon 12-19-2022 Bacteria identified Cx Nom (U) >100,000 colonies/ml mixed bacterial skin contaminants 2 Days PERFORMED BY: [facility] [address] [place] [address] PATHOLOGIST SUPER[employer] MALVIN MEDLEY M.D. [facility] Comment on above: Performed By: #### U RDS, UHCG, CUU, ADDONUAPLUS ####[id number] [place], [place] [id number] [facility] Urine bacteria detection by automated methodOrdered By: Oscar Poe on 12-19-2022 Bacteria Auto Ql (U) None seen None Seen [facility] Urine clarity by refractomet ry automatedOrdered By: Oscar Poe on 12-19-2022 Clarity Refractometry automated (U) Clear Clear Urine culture routineOrdered By: Oscar Poe on 12-19-2022 Bacteria identified Cx Nom (U) 2 Days Urine glucose measurement by automated test strip (mass/volume)Ordered By: Oscar Poe on 12-19-2022 Glucose Auto test strip (U) [Mass/Vol] Normal mg/dL Normal Urine hemoglobin detection b y automated test stripOrdered By: Oscar Poe on 12-19-2022 Hemoglobin Auto test strip Ql (U) Negative Negative Urine leukocyte esterase det ection by automated test stripOrdered By: Oscar Poe on 12-19-2022 Leukocyte esterase Auto test strip Ql (U) 2+ Negative Urobilinogen Auto test strip (U) [Mass/Vol]Ordered By: Oscar Poe on 12-19-2022 Urobilinogen (U) [Mass/Vol] Normal mg/dL Normal XR knee BI 2Von 12-19-2022 XR knee BI 2V [facility] [address] XRay Report Signed Patient: Zuleika Wyatt MR#: [id number] : 1990 Acct:[id number] Age/Sex: 32 / F ADM Date: 12/19/22 Loc: Room: [address] [place] [address] Type: ADM INOo Attending Dr: Arden Orozco DO Copies to: DO Arden Jefferson DO Ordering Provider: Oscar Poe DO Date of Service: 12/18/22 XR/XR knee BI 2V: f ([id number]) XR/XR chest 1V portable: TRAUMATIC INJURY ([id number]) XR/XR pelvis 1-2V: f ([id number]) XR/XR foot LT 2V: f CLINICAL DATA: [...] Adela Mahan M.D.12/19/2022 10:41 AM Dictation Location: [place] [address] Transcribed By: [facility] 12/19/22 1041 Dictated By: Adela Mahan MD 12/19/22 1036 Signed By: 12/19/22 1041 Normal pH Auto test strip (U)Ordere d By: Oscar Poe on 12-19-2022 pH (U) 5.5 [pH] 5.0-9.0 Amylase [Enzymatic activity/ volume] in Serum or PlasmaOrdered By: Oscar Poe on 12-18-2022 Amylase [Catalytic activity/Vol] 35 U/L 29-103 Aspartate aminotransferase [ Enzymatic activity/volume] in Serum or PlasmaOrdered By: Oscar Poe on 12-18-2022 AST [Catalytic activity/Vol] 26 U/L 13-39 Basophils Auto (Bld) [#/Vol] Ordered By: Oscar Poe on 12-18-2022 Basophils (Bld) [#/Vol] 0.1 10*3/uL 0.0-0.2 Basophils/100 WBC Auto (Bld) Ordered By: Oscar Poe on 12-18-2022 Basophils/100 WBC (Bld) 0.7 % . Carbon dioxide, total [Moles /volume] in Serum or PlasmaOrdered By: Oscar Poe on 12-18-2022 CO2 [Moles/Vol] 20.0 mmol/L 21.0-31.0 [facility] Chloride [Moles/volume] in S gwendolyn or PlasmaOrdered By: Oscar Poe on 12-18-2022 Chloride [Moles/Vol] 105 mmol/L 98-107 [facility] Choriogonadotropin.beta subu nit [Units/volume] in Serum or PlasmaOrdered By: Oscar Poe on 12-18-2022 HCG.beta subunit Qn Negative [facility] Creatine kinase [Enzymatic a ctivity/volume] in Serum or PlasmaOrdered By: Oscar Poe on 12-18-2022 CK [Catalytic activity/Vol] 50 U/L 30-223 Creatinine [Mass/volume] in Serum or PlasmaOrdered By: Oscar Poe on 12-18-2022 Creatinine [Mass/Vol] 0.84 mg/dL 0.60-1.[address] [facility] Eosinophils Auto (Bld) [#/Vo l]Ordered By: Oscar Poe on 12-18-2022 Eosinophils (Bld) [#/Vol] 0.0 10*3/uL 0.0-0.45 Eosinophils/100 WBC Auto (Bl d)Ordered By: Oscar Poe on 12-18-2022 Eosinophils/100 WBC (Bld) 0.2 % . Erythrocyte distribution wid th Auto (RBC) [Ratio]Ordered By: Oscar Poe on 12-18-2022 Erythrocyte distribution width (RBC) [Ratio] 14.4 % 11.9-15.3 Ethanol [Mass/volume] in Ser um or PlasmaOrdered By: Oscar Poe on 12-18-2022 Ethanol [Mass/Vol] mg/dL [facility] Ethanol [Mass/Vol] TNP [facility] Comment on above: Test not performed Glucose [Mass/volume] in Ser um or PlasmaOrdered By: Oscar Poe on 12-18-2022 Glucose [Mass/Vol] 93 mg/dL 70-100 [facility] Comment on above: ADA recommended refe rence rangeRandom Glucose Reference Range is dependent on time and content of last meal. Glucose of more than 200 mg/dL in a nonstressed, ambulatory subject supports the diagnosis of Diabetes Mellitus. Hematocrit Auto (Bld) [Volum e fraction]Ordered By: Oscar Poe on 12-18-2022 Hematocrit (Bld) [Volume fraction] 36.2 % 34.0-46.4 Hemoglobin [Mass/volume] in BloodOrdered By: Oscar Poe on 12-18-2022 Hemoglobin (Bld) [Mass/Vol] 11.9 g/dL 11.8-15.4 Leukocytes [#/volume] correc osmel for nucleated erythrocytes in Blood by Automated counOrdered By: Oscar Poe on 12-18-2022 WBC corrected for nucl RBC Auto (Bld) [#/Vol] 10.3 10*3/uL 3.8-11.6 Lipase [Enzymatic activity/v olume] in Serum or PlasmaOrdered By: Oscar Poe on 12-18-2022 Lipase [Catalytic activity/Vol] 29.0 U/L 11.0-82.0 Lymphocytes Auto (Bld) [#/Vo l]Ordered By: Oscar Poe on 12-18-2022 Lymphocytes (Bld) [#/Vol] 2.2 10*3/uL 1.00-4.8 Lymphocytes/100 WBC Auto (Bl d)Ordered By: Oscar Poe on 12-18-2022 Lymphocytes/100 WBC (Bld) 21.8 % . MCH Auto (RBC) [Entitic mass ]Ordered By: Oscar Poe on 12-18-2022 MCH (RBC) [Entitic mass] 26.9 pg 24.7-34.3 MCHC Auto (RBC) [Mass/Vol]Or dered By: Oscar Poe on 12-18-2022 MCHC (RBC) [Mass/Vol] 32.8 g/dL 32.0-35.[address] [facility] MCV Auto (RBC) [Entitic vol] Ordered By: Oscar Poe on 12-18-2022 MCV (RBC) [Entitic vol] 82.1 fL 80-100 Monocyte distribution width [Entitic volume] in Blood by AutomatedOrdered By: Oscar Poe on 12-18-2022 Monocyte distribution width Auto (Bld) [Entitic vol] 22.19 % 0.00-20.00 Comment on above: For adults in ED, MD W > 20.0 may be associated with a higher risk of sepsis during the first 12 hrs of hospital admission Monocytes Auto (Bld) [#/Vol] Ordered By: Oscar Poe on 12-18-2022 Monocytes (Bld) [#/Vol] 0.8 10*3/uL 0.0-0.8 Monocytes/100 WBC Auto (Bld) Ordered By: Oscar Poe on 12-18-2022 Monocytes/100 WBC (Bld) 7.4 % . Neutrophils Auto (Bld) [#/Vo l]Ordered By: Oscar Poe on 12-18-2022 Neutrophils (Bld) [#/Vol] 7.2 10*3/uL 1.8-7.7 Neutrophils/100 WBC Auto (Bl d)Ordered By: Oscar Poe on 12-18-2022 Neutrophils/100 WBC (Bld) 69.9 % . No Panel InformationOrdered By: Oscar Poe on 12-18-2022 Estimated GFR (CKD-EPI) > 60.0 mL/Min Pharmacy Creatinine Clearance (Chem 98.76 Nucleated erythrocytes [Pres ence] in Blood by Automated countOrdered By: Oscar Poe on 12-18-2022 Nucleated RBC Auto Ql (Bld) 0.1 /100{WBC} 0-0.5 Platelet mean volume Auto (B ld) [Entitic vol]Ordered By: Oscar Poe on 12-18-2022 Platelet mean volume (Bld) [Entitic vol] 8.1 fL 6.3-10.7 Platelets Auto (Bld) [#/Vol] Ordered By: Oscar Poe on 12-18-2022 Platelets (Bld) [#/Vol] 223 10*3/uL 150-450 Potassium [Moles/volume] in Serum or PlasmaOrdered By: Oscar Poe on 12-18-2022 Potassium [Moles/Vol] 3.5 mmol/L 3.5-5.[address] [facility] RBC Auto (Bld) [#/Vol]Ordere d By: Oscar Poe on 12-18-2022 RBC (Bld) [#/Vol] 4.42 10*6/uL 3.60-5.00 [facility] Serum or plasma anion gap de terminationOrdered By: Oscar Poe on 12-18-2022 Anion gap [Moles/Vol] 14.5 mmol/L 6.0-15.0 [facility] Sodium [Moles/volume] in Ser um or PlasmaOrdered By: Oscar Poe on 12-18-2022 Sodium [Moles/Vol] 136 mmol/L 136-145 [facility] Urea nitrogen [Mass/volume] in Serum or PlasmaOrdered By: Oscar Poe on 12-18-2022 Urea nitrogen [Mass/Vol] 21 mg/dL 7-25 WBC Auto (Bld) [#/Vol]Ordere d By: Oscar Poe on 12-18-2022 WBC (Bld) [#/Vol] 10.3 10*3/uL 3.8-11.6 [facility] PRBC LEUKOREDUCEDon 07-14-19 ABO and Rh group Nom (Bld) Cross Match Result Compatible Unit Blood Type A Pos Unit Number [id number] Status Information Released Specimen Exp Date Product ID Red Blood Cells Product Code [id number] Cross Match Result Compatible Unit Blood Type A Pos Unit Number [id number] Status Information Transfused Product ID Red Blood Cells Product Code [id number] Normal [facility] Comment on above: Performed By: #### R UBIGG #### [facility] [address] [place] [address] Dr. Juan Antonio Ibarra CBC AUTO DIFFon 07-07-2022 BASO # 0.0 103/ul Normal 0.0-0.1 [facility] Comment on above: Performed By: #### A 1C #### [facility] [address] [place] [address] [address] Juan Antonio Ibarra Basophils/100 WBC (Bld) 0.3 % Normal 0.2-2.0 [facility] Comment on above: Performed By: #### A 1C #### [facility] [address] [place] [address] [address] Juan Antonio Ibarra EO # 0.1 103/ul Normal 0.0-0.7 [facility] Comment on above: Performed By: #### A 1C #### [facility] [address] [place] [address] [address] Juan Antonio Ibarra Eosinophils/100 WBC (Bld) 0.9 % Normal 0.9-7.0 [facility] Comment on above: Performed By: #### A 1C #### [facility] [address] [place] [address] Dr. Juan Antonio Ibarra Erythrocyte distribution width (RBC) [Ratio] 14.5 % Normal 11.0-15.0 [facility] Comment on above: Performed By: #### A 1C #### [facility] [address] [place] [address] Dr. Juan Antonio Ibarra Hematocrit (Bld) [Volume fraction] 22.5 % Critically low 36.0-48.0 [facility] Comment on above: Performed By: #### A 1C #### [facility] [address] [place] [address] Dr. Juan Antonio Ibarra Hemoglobin (Bld) [Mass/Vol] 7.9 g/dL Critically low 12.0-16.0 [facility] Comment on above: Performed By: #### A 1C #### [facility] [address] [place] [address] [address] Juan Antonio Ibarra IG # 0.10 10e3/ul Critically high 0.00-0.03 [facility] Comment on above: Performed By: #### A 1C #### [facility] [address] [place] [address] [address] Juan Antonio Ibarra IG % 0.9 % Critically high 0.0-0.5 [facility] Comment on above: Performed By: #### A 1C #### [facility] [address] [place] [address] Dr. Juan Antonio Ibarra LYMPH # 1.6 103/ul Normal 1.2-3.8 [facility] Comment on above: Performed By: #### A 1C #### [facility] [address] [place] [address] Dr. Juan Antonio Ibarra Lymphocytes/100 WBC (Bld) 14.0 % Critically low 20.5-60.0 [facility] Comment on above: Performed By: #### A 1C #### [facility] [address] [place] [address] Dr. Juan Antonio Ibarra MANUAL DIFF REQ NO Normal [facility] Comment on above: Performed By: #### A 1C #### [facility] [address] [place] [address] Dr. Juan Antonio Ibarra MCH (RBC) [Entitic mass] 26.4 pg Critically low 26.7-34.0 [facility] Comment on above: Performed By: #### A 1C #### [facility] [address] [place] [address] Dr. Juan Antonio Ibarra MCHC (RBC) [Mass/Vol] 35.1 g/dL Normal 29.9-35.2 [facility] Comment on above: Performed By: #### A 1C #### [facility] [address] [place] [address] Dr. Juan Antonio Ibarra MCV (RBC) [Entitic vol] 75.3 fL Critically low 81.0-99.0 [facility] Comment on above: Performed By: #### A 1C #### [facility] [address] [place] [address] Dr. Juan Antonio Ibarra MONO # 0.7 103/ul Normal 0.3-0.8 [facility] Comment on above: Performed By: #### A 1C #### [facility] [address] [place] [address] Dr. Juan Antonio Ibarra Monocytes/100 WBC (Bld) 6.2 % Normal 1.7-12.0 [facility] Comment on above: Performed By: #### A 1C #### [facility] [address] [place] [address] Dr. Juan Antonio Ibarra NEUT # 9.1 103/ul Critically high 1.4-6.5 [facility] Comment on above: Performed By: #### A 1C #### [facility] [address] [place] [address] Dr. Juan Antonio Ibarra Neutrophils/100 WBC (Bld) 77.7 % Critically high 43.0-75.0 [facility] Comment on above: Performed By: #### A 1C #### [facility] [address] [place] [address] Dr. Juan Antonio Ibarra Platelet mean volume (Bld) [Entitic vol] 9.2 fL Critically low 9.5-13.5 [facility] Comment on above: Performed By: #### A 1C #### [facility] [address] [place] [address] Dr. Juan Antonio Ibarra PLT 143 103/ul Critically low 150-450 [facility] Comment on above: Performed By: #### A 1C #### [facility] [address] [place] [address] Dr. Juan Antonio Ibarra RBC 2.99 106/ul Critically low 4.20-5.40 [facility] Comment on above: Performed By: #### A 1C #### [facility] [address] [place] [address] Dr. Juan Antonio Ibarra WBC 11.7 103/ul Critically high 4.0-11.0 [facility] Comment on above: Performed By: #### A 1C #### [facility] [address] [place] [address] Dr. Juan Antonio Ibarra CBC AUTO DIFFon 07-06-2022 BASO # 0.0 103/ul Normal 0.0-0.1 [facility] Comment on above: Performed By: #### A 1C #### [facility] [address] [place] [address] Dr. Juan Antonio Ibarra Basophils/100 WBC (Bld) 0.3 % Normal 0.2-2.0 [facility] Comment on above: Performed By: #### A 1C #### [facility] [address] [place] [address] Dr. Juan Antonio Ibarra EO # 0.1 103/ul Normal 0.0-0.7 [facility] Comment on above: Performed By: #### A 1C #### [facility] [address] [place] [address] Dr. Juan Antonio Ibarra Eosinophils/100 WBC (Bld) 0.8 % Critically low 0.9-7.0 [facility] Comment on above: Performed By: #### A 1C #### [facility] [address] [place] [address] Dr. Juan Antonio Ibarra Erythrocyte distribution width (RBC) [Ratio] 14.3 % Normal 11.0-15.0 [facility] Comment on above: Performed By: #### A 1C #### [facility] [address] [place] [address] Dr. Juan Antonio Ibarra Hematocrit (Bld) [Volume fraction] 23.0 % Critically low 36.0-48.0 [facility] Comment on above: Performed By: #### A 1C #### [facility] [address] [place] [address] Dr. Juan Antonio Ibarra Hemoglobin (Bld) [Mass/Vol] 7.5 g/dL Critically low 12.0-16.0 [facility] Comment on above: Performed By: #### A 1C #### [facility] [address] [place] [address] Dr. Juan Antonio Ibarra IG # 0.07 10e3/ul Critically high 0.00-0.03 [facility] Comment on above: Performed By: #### A 1C #### [facility] [address] [place] [address] Dr. Juan Antonio Ibarra IG % 0.6 % Critically high 0.0-0.5 [facility] Comment on above: Performed By: #### A 1C #### [facility] [address] [place] [address] Dr. Juan Antonio Ibarra LYMPH # 2.1 103/ul Normal 1.2-3.8 [facility] Comment on above: Performed By: #### A 1C #### [facility] [address] [place] [address] Dr. Juan Antonio Ibarra Lymphocytes/100 WBC (Bld) 18.8 % Critically low 20.5-60.0 [facility] Comment on above: Performed By: #### A 1C #### [facility] [address] [place] [address] Dr. Juan Antonio Ibarra MANUAL DIFF REQ NO Normal [facility] Comment on above: Performed By: #### A 1C #### [facility] [address] [place] [address] Dr. Juan Antonio Ibarra MCH (RBC) [Entitic mass] 26.0 pg Critically low 26.7-34.0 [facility] Comment on above: Performed By: #### A 1C #### [facility] [address] [place] [address] Dr. Juan Antonio Ibarra MCHC (RBC) [Mass/Vol] 32.6 g/dL Normal 29.9-35.2 [facility] Comment on above: Performed By: #### A 1C #### [facility] [address] [place] [address] Dr. Juan Antonio Ibarra MCV (RBC) [Entitic vol] 79.9 fL Critically low 81.0-99.0 [facility] Comment on above: Performed By: #### A 1C #### [facility] [address] [place] [address] Dr. Juan Antonio Ibarra MONO # 0.7 103/ul Normal 0.3-0.8 [facility] Comment on above: Performed By: #### A 1C #### [facility] [address] [place] [address] Dr. Juan Antonio Ibarra Monocytes/100 WBC (Bld) 6.6 % Normal 1.7-12.0 [facility] Comment on above: Performed By: #### A 1C #### [facility] [address] [place] [address] Dr. Juan Antonio Ibarra NEUT # 8.2 103/ul Critically high 1.4-6.5 [facility] Comment on above: Performed By: #### A 1C #### [facility] [address] [place] [address] Dr. Juan Antonio Ibarra Neutrophils/100 WBC (Bld) 72.9 % Normal 43.0-75.0 [facility] Comment on above: Performed By: #### A 1C #### [facility] [address] [place] [address] Dr. Juan Antonio Ibarra Platelet mean volume (Bld) [Entitic vol] 9.8 fL Normal 9.5-13.5 [facility] Comment on above: Performed By: #### A 1C #### [facility] [address] [place] [address] Dr. Juan Antonio Ibarra PLT 151 103/ul Normal 150-450 [facility] Comment on above: Performed By: #### A 1C #### [facility] [address] [place] [address] Dr. Juan Antonio Ibarra RBC 2.88 106/ul Critically low 4.20-5.40 [facility] Comment on above: Performed By: #### A 1C #### [facility] [address] [place] [address] Dr. Juan Antonio Ibarra WBC 11.3 103/ul Critically high 4.0-11.0 [facility] Comment on above: Performed By: #### A 1C #### [facility] [address] [place] [address] Dr. Juan Antonio Ibarra CBC AUTO DIFFon 07-05-2022 BASO # 0.0 103/ul Normal 0.0-0.1 [facility] Comment on above: Performed By: #### R PRQ #### [facility] [address] [place] [address] Dr. Juan Antonio bIarra Basophils/100 WBC (Bld) 0.2 % Normal 0.2-2.0 [facility] Comment on above: Performed By: #### R PRQ #### [facility] [address] [place] [address] Dr. Juan Antonio Ibarra EO # 0.0 103/ul Normal 0.0-0.7 [facility] Comment on above: Performed By: #### R PRQ #### [facility] [address] [place] [address] Dr. Juan Antonio Ibarra Eosinophils/100 WBC (Bld) 0.4 % Critically low 0.9-7.0 [facility] Comment on above: Performed By: #### R PRQ #### [facility] [address] [place] [address] Dr. Juan Antonio Ibarra Erythrocyte distribution width (RBC) [Ratio] 14.2 % Normal 11.0-15.0 [facility] Comment on above: Performed By: #### R PRQ #### [facility] [address] [place] [address] Dr. Juan Antonio Ibarra Hematocrit (Bld) [Volume fraction] 31.0 % Critically low 36.0-48.0 [facility] Comment on above: Performed By: #### R PRQ #### [facility] [address] [place] [address] Dr. Juan Antonio Ibarra Hemoglobin (Bld) [Mass/Vol] 10.1 g/dL Critically low 12.0-16.0 [facility] Comment on above: Performed By: #### R PRQ #### [facility] [address] [place] [address] Dr. Juan Antonio Ibarra IG # 0.10 10e3/ul Critically high 0.00-0.03 [facility] Comment on above: Performed By: #### R PRQ #### [facility] [address] [place] [address] Dr. Juan Antonio Ibarra IG % 1.1 % Critically high 0.0-0.5 [facility] Comment on above: Performed By: #### R PRQ #### [facility] [address] [place] [address] Dr. Juan Antonio Ibarra LYMPH # 1.6 103/ul Normal 1.2-3.8 [facility] Comment on above: Performed By: #### R PRQ #### [facility] [address] [place] [address] Dr. Juan Antonio Ibarra Lymphocytes/100 WBC (Bld) 17.5 % Critically low 20.5-60.0 [facility] Comment on above: Performed By: #### R PRQ #### [facility] [address] [place] [address] Dr. Juan Antonio Ibarra MANUAL DIFF REQ NO Normal [facility] Comment on above: Performed By: #### R PRQ #### [facility] [address] [place] [address] Dr. Juan Antonio Ibarra MCH (RBC) [Entitic mass] 25.8 pg Critically low 26.7-34.0 [facility] Comment on above: Performed By: #### R PRQ #### [facility] [address] [place] [address] Dr. Juan Antonio Ibarra MCHC (RBC) [Mass/Vol] 32.6 g/dL Normal 29.9-35.2 [facility] Comment on above: Performed By: #### R PRQ #### [facility] [address] [place] [address] Dr. Juan Antonio Ibarra MCV (RBC) [Entitic vol] 79.3 fL Critically low 81.0-99.0 [facility] Comment on above: Performed By: #### R PRQ #### [facility] [address] [place] [address] Dr. Juan Antonio Ibarra MONO # 0.7 103/ul Normal 0.3-0.8 [facility] Comment on above: Performed By: #### R PRQ #### [facility] [address] [place] [address] Dr. Juan Antonio Ibarra Monocytes/100 WBC (Bld) 8.1 % Normal 1.7-12.0 [facility] Comment on above: Performed By: #### R PRQ #### [facility] [address] [place] [address] Dr. Juan Antonio Ibarra NEUT # 6.7 103/ul Critically high 1.4-6.5 [facility] Comment on above: Performed By: #### R PRQ #### [facility] [address] [place] [address] Dr. Juan Antonio Ibarra Neutrophils/100 WBC (Bld) 72.7 % Normal 43.0-75.0 [facility] Comment on above: Performed By: #### R PRQ #### [facility] [address] [place] [address] Dr. Juan Antonio Ibarra Platelet mean volume (Bld) [Entitic vol] 10.1 fL Normal 9.5-13.5 [facility] Comment on above: Performed By: #### R PRQ #### [facility] [address] [place] [address] Dr. Juan Antonio Ibarra PLT 202 103/ul Normal 150-450 [facility] Comment on above: Performed By: #### R PRQ #### [facility] [address] [place] [address] Dr. Juan Antonio Ibarra RBC 3.91 106/ul Critically low 4.20-5.40 [facility] Comment on above: Performed By: #### R PRQ #### [facility] [address] [place] [address] Dr. Juan Antonio Ibarra WBC 9.2 103/ul Normal 4.0-11.0 [facility] Comment on above: Performed By: #### R PRQ #### [facility] [address] [place] [address] Dr. Juan Antonio Ibarra DRUG SCREEN RAPID (URINE)on 07-05-2022 AMP Negative Normal NEGATIVE [facility] Comment on above: Performed By: #### A 1C #### [facility] [address] [place] [address] Dr. Juan Antonio Ibarra BAR Negative Normal NEGATIVE [facility] Comment on above: Performed By: #### A 1C #### [facility] [address] [place] [address] Dr. Juan Antonio Ibarra BUP Negative Normal NEGATIVE [facility] Comment on above: Performed By: #### A 1C #### [facility] [address] [place] [address] Dr. Juan Antonio Ibarra BZO Negative Normal NEGATIVE [facility] Comment on above: Performed By: #### A 1C #### [facility] [address] [place] [address] Dr. Juan Antonio Ibarra PARAM Negative Normal NEGATIVE [facility] Comment on above: Performed By: #### A 1C #### [facility] [address] [place] [address] Dr. Juan Antonio Ibarra CUT-OFFS SEE BELOW Normal [facility] Comment on above: Result Comment: AMP (Amphetamine): 500ng/mL, BAR (Barbituates): 200 ng/mL, BZO (Benzodiazepines): 150 ng/mL, BUP (Buprenorphine): 10 ng/mL, PARAM (Cocaine): 150 ng/mL, mAMP (Methamphetamine): 500 ng/mL, MTD (Methadone): 200 ng/mL, OPI (Opiates): 100 ng/mL, OXY (Oxycodone): 100 ng/mL, PCP (Phencyclidine): 25 ng/mL, PPX (Propoxyphene): 300 ng/mL, THC (Cannabinoids): 50 ng/mL, TCA (Trycyclic Antidepressants): 300 ng/mL Performed By: #### A 1C #### [facility] [address] [place] [address] Dr. Juan Antonio Ibarra DRUG CUT HEADER DRUG CLASS TEST SYST EM CUT-OFF CONCENTRATIONS ARE FOLLOWS: Normal [facility] Comment on above: Performed By: #### A 1C #### [facility] [address] [place] [address] Dr. Juan Antonio Ibarra mAMP Negative Normal NEGATIVE [facility] Comment on above: Performed By: #### A 1C #### [facility] [address] [place] [address] Dr. Juan Antonio Ibarra MTD Negative Normal NEGATIVE [facility] Comment on above: Performed By: #### A 1C #### [facility] [address] [place] [address] Dr. Juan Antonio Ibarra OPI Negative Normal NEGATIVE [facility] Comment on above: Performed By: #### A 1C #### [facility] [address] [place] [address] Dr. Juan Antonio Ibarra OXY Negative Normal NEGATIVE [facility] Comment on above: Performed By: #### A 1C #### [facility] [address] [place] [address] Dr. Juan Antonio Ibarra PCP Negative Normal NEGATIVE [facility] Comment on above: Performed By: #### A 1C #### [facility] [address] [place] [address] Dr. Juan Antonio Ibarra PPX Negative Normal NEGATIVE [facility] Comment on above: Performed By: #### A 1C #### [facility] [address] [address] [address] Juan Antonio Ibarra TCA Negative Normal NEGATIVE [facility] Comment on above: Performed By: #### A 1C #### [facility] [address] [address] [address] Juan Antonio Ibarra THC Negative Normal NEGATIVE [facility] Comment on above: Performed By: #### A 1C #### [facility] [address] [address] [address] Juan Antonio Ibarra TYPE AND SCREENon 07-05-2022 TYPE AND SCREEN Negative Normal [facility] Comment on above: Performed By: #### T NS #### [facility] [address] [address] [address] Juan Antonio Ibarra US PREG BIOPHY [...] FELECIA GOLDMAN Date: 2022-06-28 15:29 Normal [facility] US PREG BIOPHY W NON [...] FELECIA GOLDMAN Date: 2022-06-21 17:20 Normal [facility] US PREG GROWTHon 06-21-2022 US [...] GAMALIEL CRUMP Date: 2022-06-21 13:37 Normal [facility] CULTURE URINEon 06-16-2022 CULTURE URINE Culture Observations : LIGHT GROWTH OF MIXED GENITAL ALONSO. NO POTENTIAL PATHOGENS SEEN. Normal [facility] Comment on above: Performed By: #### U RCX #### [facility] [address] [place] [address] Dr. Juan Antonio Ibarra UA (CLEAN/CATCH) GARDE MANAGER/MICRO I F IND.on 06-16-2022 Bilirubin Ql (U) Negative Normal NEGATIVE [facility] Comment on above: Performed By: #### U MICRO, UACSIND #### [facility] [address] [place] [address] Dr. Juan Antonio Ibarra Clarity (U) CLEAR Normal CLEAR [facility] Comment on above: Performed By: #### U MICRO, UACSIND #### [facility] [address] [place] [address] Dr. Juan Antonio Ibarra Color (U) LT. YELLOW Normal YELLOW [facility] Comment on above: Performed By: #### U MICRO, UACSIND #### [facility] [address] [address] [address] Juan Antonio Ibarra Glucose Ql (U) Negative Normal NEGATIVE [facility] Comment on above: Performed By: #### U MICRO, UACSIND #### [facility] [address] [address] [address] Juan Antonio Ibarra Hemoglobin Ql (U) Negative Normal NEGATIVE [facility] Comment on above: Performed By: #### U MICRO, UACSIND #### [facility] [address] [place] [address] Dr. Juan Antonio Ibarra Ketones Ql (U) Negative Normal NEGATIVE [facility] Comment on above: Performed By: #### U MICRO, UACSIND #### [facility] [address] [place] [address] Dr. Juan Antonio Ibarra LEUKOCYTES MODERATE Abnormal NEGATIVE [facility] Comment on above: Performed By: #### U MICRO, UACSIND #### [facility] [address] [place] [address] Dr. Juan Antonio Ibarra Nitrite Ql (U) Negative Normal NEGATIVE [facility] Comment on above: Performed By: #### U MICRO, UACSIND #### [facility] [address] [place] [address] Dr. Juan Antonio Ibarra pH (U) 6.0 [pH] Normal 5-9 [facility] Comment on above: Performed By: #### U MICRO, UACSIND #### [facility] [address] [place] [address] Dr. Juan Antonio Ibarra SPEC GRAVITY 1.020 Normal 1.005-<=1. 025 [facility] Comment on above: Performed By: #### U MICRO, UACSIND #### [facility] [address] [place] [address] Dr. Juan Antonio Ibarra UA PROTEIN Negative Normal NEGATIVE/ TRACE [facility] Comment on above: Performed By: #### U MICRO, UACSIND #### [facility] [address] [place] [address] Dr. Juan Antonio Ibarra UR MICRO IND INDICATED Normal [facility] Comment on above: Performed By: #### U MICRO, UACSIND #### [facility] [address] [place] [address] Dr. Juan Antonio Ibarra Urobilinogen Qn (U) 1.0 {Pamela'U}/dL Normal 0.2 - 1. 0 [facility] Comment on above: Performed By: #### U MICRO, UACSIND #### [facility] [address] [address] [address] Juan Antonio Ibarra URINE MICROSCOPIC ONLYon BACTERIA SMALL Abnormal NONE SEEN [facility] Comment on above: Performed By: #### U MICRO, UACSIND #### [facility] [address] [place] [address] Dr. Juan Antonio Ibarra Bacteria identified Cx Nom (U) INDICATED Normal [facility] Comment on above: Performed By: #### U MICRO, UACSIND #### [facility] [address] [place] [address] Dr. Juan Antonio Ibarra CAST NONE SEEN Normal NONE SEEN [facility] Comment on above: Performed By: #### U MICRO, UACSIND #### [facility] [address] [place] [address] Dr. Juan Antonio Ibarra Crystals LM Nom (Urine sed) NONE SEEN Normal NONE SEEN [facility] Comment on above: Performed By: #### U MICRO, UACSIND #### [facility] [address] [place] [address] Dr. Juan Antonio Ibarra Epithelial cells LM Ql (Urine sed) RARE Normal NONE SEEN /RARE [facility] Comment on above: Performed By: #### U MICRO, UACSIND #### [facility] [address] [place] [address] Dr. Juan Antonio Ibarra MUCOUS NONE SEEN Normal NONE SEEN [facility] Comment on above: Performed By: #### U MICRO, UACSIND #### [facility] [address] [place] [address] Dr. Juan Antonio Ibarra RBC NONE SEEN Abnormal 0-2 [facility] Comment on above: Performed By: #### U MICRO, UACSIND #### [facility] [address] [address] [address] Juan Antonio Ibarra WBC 2-5 Abnormal NONE SEEN [facility] Comment on above: Performed By: #### U MICRO, UACSIND #### [facility] [address] [address] [address] Juan Antonio Ibarra GROUP B STREP CULTUREon 05-18 S. agalactiae Ag Ql (Unsp spec) Culture Observations: NEGATIVE FOR GROUP B STREPTOCOCCUS. Normal [facility] Comment on above: Performed By: #### G BSCX #### [facility] [address] [address] [address] Juan Antonio Ibarra US PREG BIOPHY [...] GAMALIEL CRUMP Date: 2022-06-14 16:10 Normal [facility] US PREG BIOPHY W NON [...] by: FELECIA GOLDMAN Date: 2022-06-07 16:42 Normal [facility] US PREG BIOPHY W NON STRESSo n [...] by: FELECIA GOLDMAN Date: 2022-06-04 17:11 Normal [facility] US PREG BIOPHY W NON STRESS EXAMINATION: [...] by: FELECIA GOLDMAN Date: 2022-06-04 16:23 Normal [facility] US PREG BIOPHY W NON STRESSo n [...] by: GAMALIEL CRUMP Date: 2022-05-31 18:39 Normal [facility] US PREG BIOPHY W NON STRESSo n [...] FELECIA GOLDMAN Date: 2022-05-24 16:34 Normal [facility] US PREG GROWTHon 05-24-2022 US [...] FELECIA GOLDMAN Date: 2022-05-24 16:33 Normal [facility] GLUCOSE - 1HRon 04-04-2022 Glucose [Mass/Vol] 101 mg/dL Normal 74-106 [facility] Comment on above: Performed By: #### R PRQ #### [facility] [address] [address] [address] Juan Antonio Ibarra HEMOGRAM AND PLATELon 2021 Hematocrit (Bld) [Volume fraction] 33.5 % Critically low 36.0-48.0 [facility] Comment on above: Performed By: #### A 1C #### [facility] [address] [address] [address] Juan Antonio Ibarra Hemoglobin (Bld) [Mass/Vol] 10.7 g/dL Critically low 12.0-16.0 [facility] Comment on above: Performed By: #### A 1C #### [facility] [address] [place] [address] Dr. Juan Antonio Ibarra MCH (RBC) [Entitic mass] 29.3 pg Normal 26.7-34.0 [facility] Comment on above: Performed By: #### A 1C #### [facility] [address] [place] [address] Dr. Juan Antonio Ibarra MCHC (RBC) [Mass/Vol] 31.9 g/dL Normal 29.9-35.2 [facility] Comment on above: Performed By: #### A 1C #### [facility] [address] [place] [address] Dr. Juan Antonio Ibarra MCV (RBC) [Entitic vol] 91.8 fL Normal 81.0-99.0 [facility] Comment on above: Performed By: #### A 1C #### [facility] [address] [place] [address] Dr. Juan Antonio Ibarra PLT 179 103/ul Normal 150-450 [facility] Comment on above: Performed By: #### A 1C #### [facility] [address] [place] [address] Dr. Juan Antonio Ibarra RBC 3.65 106/ul Critically low 4.20-5.40 [facility] Comment on above: Performed By: #### A 1C #### [facility] [address] [place] [address] Dr. Juan Antonio Ibarra WBC 9.9 103/ul Normal 4.0-11.0 [facility] Comment on above: Performed By: #### A 1C #### [facility] [address] [place] [address] Dr. Juan Antonio Ibarra US PREG REEVAL [...] by: FELECIA GOLDMAN Date: 2022-03-20 20:55 Normal [facility] US PREG ANATOMY SINGLEon US PREG ANATOMY [...] by: FELECIA GOLDMAN Date: 2022-02-22 16:46 Normal [facility] Coding Summaryon 02-14-2022 Coding Summary HTMLBase 64 HinitdviWRl5iXc+PGhlYWQ+PE 8TWTNeR15lzSFkyY0WH6gRKD6I BDQMZCIEHY5FJF1uvFL0ODciA1 VybiAv ClxakVAdBX34WLr0EXU6bLjsJC exlP8wzEEqY4l2GiCwEL52kZ50 RPmdRNXgBgE8IzFvaimpeBRz Q0yjJkIfkYYkAde+PHRhYmxlIH ajTBKqLBfnXUCmVwMmvOdoBB4m Qw2zQUObYORriJweoITrQnNh b9rtIGZdHCnmQP2epRxgL7CouY N0NHMkc5i0Xp10aXO+PHRkIHN0 zRbdIQkgl716CjFgv8rmHVF9 hXOoVPxqKYR1H69so6F1LQEgHP TzPZZ9kRZ6dX3xaKlnzfmwD6Fk kCXmVaY3OLN8yTJupT0ljJhu nqxgtQ9xGnw+J28CWF7TJCKXZR 6WCqg2W9HwWmajtQU+WA37LLZl PE34pXGioYUhp1jauRm4JbGb JRNwVVD8zIvgOTjrs1ZyVHPdH2 9zaECuf4T0JTEzoYwgvLIsIgNs hDV8pC9lMTsybnhqp0szwygk Llkvs9dljb82eV22W15eGFryDH JtMTE5XVUgVIRuxXgmqc9tzS9q Ii8+MAnny7vfv5rlpVn2FsRn DSGsysMavUcrZIB5b4ReBy36W7 GgyYfwt2DePwe9pe11gIJqm5N9 dTS1ZPtsFELfhR5cSVnyDsO3 PXQyElTpcZ79hQBpVAyhXi0snI nowKqpVQ5oSGGgborlRRNidY6d SNAlyNSezQikVH5cZOBulqlh j843RzExIPF1GSBlrHCjX1YnwH 4pEwHpOBMpIZHjV0ChwTNdJFhy P323MGltBnY2TPTijaTxF4Rw UGJzcQriRwY5h7E4Kz8Tz9Ctbf weTWJ0QCmjXMH3QsIvSkOzRwP2 S8IyExg3IKOqrRijVW4vS4Ud OPRziklsqgkviQL7QKDrCMEauH 89gZUlJNagVx9up1J7n233PERr XGUtuP05Ff8rhVgxEOQvqXXT oG8kkjggz2yftifuSoWhVGAiTM j9BEb1KAZhvCifQqGjCGS4MzN6 LLL3cIRluP4jwMqdnvyxbU4x Oyc+U80ooA1uFDH2EXZ4yzjqXO OddnRmMK79KY06W8YaPhummNRv bGU+APDjvvApbEbrNT7cBzHk j9jip3DoMQesB9CyPHAeNGoiMq c6FXHiSCS6kPU1lG3mFTHcUTqg d0G5tCE2O5WmwrHlvt7dn9rq SCRnKWkgM38akDAtu9U0HBLgyF I2MNCsiWioWfFnkP79Rxa+PGNv bSecd6QtWtidi8jye9cnvKu6 HxNdJAVbplLomOozUYK1m3FtUv 70W52oHYirPMGuEZZrERQtOLKc lYygow1zrQ4fRy1+PGNvbCB3 wEK5yR0jLRKkLnJ1PIieT416Fm DatKJeSimho0wgm8bfiAc1GzCo ZWLgcoSvlCspUZQ0t6LfHo36 W65aKGacILFfQTNkHXYdRDHejZ nofv0saS6iBy1+MD9bu6oevm13 dS25oHS+XGQhFLV3zQfaYKyk QWNknL4hUBvuDuE8VKMtShBppF 32jANnCWmeUc0okEyerLvqCD6j UKRdtfivx624VrLns5zxWGNa tLRwULdpLUS9F54kn2D3AVCuIO GxQCE6kRT2rC7hpIkrnvnzuQWu fIcfyqNpdCyzDNtvUVngB132 IHRvcDsnPlBhdGllbnQgTmFtZT l0Y2LbFym2LBSnkKziMB0jyWEd AUgmYc3dxDstfDuoYA0hBOTo zgfpd324ZjFxo0urTXIdlLIiLV agJZD3M23fq6P2IJQqPOQnQKE7 wEV4zI9vaVveqbxpyRKtsFbu qjJwrPidEEysRCpbR319CLJpoN uyHkPuejPvIMGadRI2GT69SD36 nJRbm7U3cRH5K6BcHZRyidgz vpldxYD5FYYxMHNxuG46Fs0rsA vtCa8sPGOhOGL2UGYpmBVeS1Mf hS8iFsMwKSZoVDOqX3MnqHLn ZFojD461MIwoAeD6KZNbtlPiU6 LxRLZeuWixDaE1j2Y5Oe9PJ7Y1 WM18SF13tONjx6J3xMD2K7Ux MCVpckoojavqpCU5OSOuEHWmwH 72Gm6ngVfyXc3aTTXjLBE8JDVr fPAkX5WgzV6pEmBzZFIlNRRr O4YxtGRhKGbzU735AGtuImL1IS NbnwBhI8AeROTjnQofLfY6c0M8 Qb4ZXVh3BC72QL27bJFtf6R1 zYJ1F9IsAFWhrvpxhqjnaNH2QR RsMOVddE96Sa5klFtbKw7dWFCk RZK6CWSnjNDrV5IxmN5iPrUe SHCoTMEiO2KadQPfNSecO583ON irUqJ2PWSwtsOsI9VdYCTzxHoh JwG3a1N3Fu4HMLHrEM64XDN1 zYE7JO24RU21N6UuBwycrNKwdE U+PHRhYmxlIHdpZHRoPScxMDAl TsYejHhjDE7iZm2kCOGnRLKc kUobvMIpMvEiv1wqUMLhHUnuLI 8iuIrjF6PxzWQ4LLCqy5y2Jw65 O26zT2PwrXU+REXbyCV1dTO1 lM0vJpQvAvG5QYkjR709MqWzhL JgTofgc5wfy3hnzMs1FgA0TLPo heTtxYzjVXK0r5PyAa46L27z IHdpZHRoPSIxNSUiIHZhbGlnbj 4ikF9yLk8+JYSccCM5bTC6vD5q PoOoLrI2VQejS904NaOlgDJj Ktyea8qkc6hivRx1MpEgPCCqgj PrhXmnSDL4i2PcXj89E6GcoWnq b9UpJjr1jp29qFXcr5J1oLB2 Q8HpLLBtvgfhpEAosDdpUY4mCR HjsbpaAKVwgH7rXOLvS4z7HgUh PdK6ZGpsH2ZejbG5FMStgSTn BGhmFTT1J57vg5G8WVCdFJAyFQ R3sKP3tW2chRmaodruoUGryUye zrJivJfnBTshPWueY118AKQp qQppFHKuiP0aFXMxxSApuSqxQC 4wNTBpbjsnPlNURUlOLCBWSVJH MS7YYJRMZHW1R9JqPer6MGIt zRkyBY2ksAKhTNvvPf9mqNpvjF tvJL8qGLIojnnyHFRtxY4nKHWw xXMkmJuqMP5aFOLrzpuiz394 VuGfGSR2EZRirAOxV0OyrH4tEo IcSGCtFADhS5AwoPJcGEvfM514 EGtmHmF2VJZdsnUbM3HgHWLi aGbsVuN8v1Y7Jo0eAO0yGF1lLH ibOY31ZO92jFEfq2P8oGK3L2Yq JTDunjmjmasyrLE1CXQaCXXf tR40mVBuWLqfWz8jy0A9x290OD FsKDKroJ45Jn9qhFvqBSZrvOPR dI2daqztd3wjuybeJdIeFWBw IOf5LXj7UYUpgPyvCyUkNBI8Fg H8NXS4yJMqwK6ayKecqizaeA6d Oyc+RybgBYItwiM9T4WhXio6 HKDacElqSD4eaQAeLYbmOe6exS vkuRxqAV8iUIPxyxpoOFEijD5a MGZnbLDocDexEU2dGGZmtroz k929SmAbWRL5KXPbwCKiD8GejV 4pMyHfDRNzXSCqT6EyeIPkWIvn R129QYkxYwB4CUByqlFzV2Lk HSDwhVtjCwX7i4D1Ux2GDL9LQR A9T2YqUxn8LTZetAknQJ5gnSRk GLndPt4wmKkefBpyZC3lLRHm rvlnHOBvfD6fSACbjRAthAahNI 8wFCXgipolx381AtVgMVH0AVDy pVYyQ6XigQ5bBsAsPZJmVHAg O8KxeNTePChzR523VCaxZaJ0TN BywdGtS0XhETJqzXlkDoN8u3E1 Jy7GIApjgFS+BO26nj80Z9Pf TdnsMdk0LULhQHZ5lER1sC0uIT OyDRplt5H8nHT9Z7AomgRyne2j c6lhSZPpEAqyN21zwPZcn8F1 XIUqvCW7HFRwmJoiVlBwdU66Mg c+ZUNhlIzeh7OdQgnyz9ybp1rn fXh5YsPjARCtfkXvqIgcWCK5 h9JvKa84W84fABieJSGcZYPgOG PhJIIxbGhsjw1sdH5hDw7+PGNv jFM5aVE1fB5dJnGqLwK6YFmb F631JaBklDUpFdnjh6pzb1uypH c8BwBfKMAvmxVizHdnGGU0s9Mc Tx20W1HqoQllc1KgKcq5st66 sYWaf4E6qCT1J9VuWVDjojuegN UckIzxAR3bDFPyqqnfIVGauH7g EEYbH3v8WhZeAuL7TQdyY8Hu otS9AYLlkPKlOALbkPXEoZ8wzj jly7cosxnqDtBnHDArGKx0KIq8 HRZznChsKvRmNFS6LlA4UXG5 xLVezG9yzPgxoinxqA0mZlt+UG o0m9wunDBzBI1djHA2DR32ZU94 wZLrk0I7kDF2N1NnJOTmrdyt gjnlmEO1EYUrMVBgaZ78Ib5tsE lyFq2vLMCkXZI6GAElzJFcK4Kq lS2yWjHyKIWqEZHiG7TbeLRf FLlsS389KQvnYwU2FMTebnRtQ2 LrBUJjvTglNgA8i4E0Ah7HUA88 EQ72OH79lUQsr7I9qRL8K2Mt IXKuuonqzokenBE4IKUpDSDgnG 90Gr8daXklCr3gYCTiHSG7OGIx bHZaE9NfwR0hQeXpAQImXRIs E5EodHMeSYuqO953JPyyJuY7WO UrpwNyL8AqRZEkqHctTeN2k4C8 Ak0ZCj33IC44LV54mPToo1J6 wUX1Q1YcFUEcbkzjeawmjXU2YC MpHUGiiD39Rw4ttTwaAf5xJJLs ANT2EJNwoMMuA7BdvR9rTbRk EMVxEPKyB9QegELhQXdiA753KM kxGdE0ZMUdikCaD4ZiHVWjqQks VcU8x9S7Mw3LHQskcyf5D1Mo PjwvdHI+ID51WMTaMS97qXPdvL Vrq8wurFd6KaJqARQcYIQ3gKyf BRnef2JlOIKcM56nbVBjk2O2 IGN (more content not included)... [facility] Coding Summary HTMLBase 64 NcjhcjcrZAr0zDi+PGhlYWQ+PE 4ZZCYnF15vlIXotO9XF9tVEU3S LJOCGQGMXJ1HCJ6vbYZ9NQrtN0 VybiAv HuoimHMzHY08PGt0LVH6qRfeBR petY4fwZMxG2x8JuAsRB51aZ55 AXycFPQrWrG5RsIorgaaaWSi Q0erNaEncBPeAri+PHRhYmxlIH ywMBPpLDsjQTZpMlJuvHjtHF5h Tn8vZKUkDIPjsQzvwYYjWeTy s9fzTJUnEDdbAU5xfHrsP8KdyL E1RIHok2e4Gq81xNN+PHRkIHN0 nEtxCAhhg608PnPdg4fqHKG9 hZKxVRebIXS7C00li6R8PBRfTQ CgZHU4eOU4rL0coEnsizeuE5Lg mNCoPmM5CQY7pSIzwZ1ewIlz bbgduV6pExd+U60QXS7QDBYZIE 5PIqx2J7PtYrkxcCB+BF65IBIz TK92nUScrMIzc9gglJc3BwAy ZQQhVEI6fMyaDKvhx6UzHLCmA3 9urSUhs9W1IDZcyLgepFOpKwXs iOL1kR5bEQxifgorj9fzqbxg Zwvak8nscz61vP49P11tWNvfSH CjTEZ1VIAjIZIuwAvynx2knY2d Ii8+XMtyn9amz6hhlPb4CkEs YHHevsYqsLilITT5r3CgDk71A3 CuxAnbj1SzKpy0ts33sCXgf7C8 lNN5PIzfJTZreG8bUTbtLgC9 NGVoLoFbpD48jNDhJVaaSq6dxR xvkTvwNF1jCGUcubicLBUuvQ8o GVYlcAOumPvuGF5lRUZwxeed t308CeCsYHM0UUKpiMZrG9StvT 8bRgRsLJJjIDGmJ9YyiHVpBWgb Z484NBahBiL1RKUokxLuR9Ku MBTqmZiqOpH4w2A7St1Bz2Oskd bvLBP3DRypDPR1JkAbBcLsTuQ2 A4PtPop8XBAwlRgjOX6uO8Ui GDBlsorjizrneTA3NHSyCMNbgE 10bNLvRIzrDh9zb6D0n229NFDj GGLpsU81Yg6glKxkLNBrmXJT pC6gophfi0myifdjMxMdYOSpHC u1FSk8YYVsoGhvVfScZIM0WwL0 HFZ7mMIxwG5htAngntxmvA0k Oyc+T37etR1cEAM9ULF6mbbqIU JlbgRkJQ50KS17Z2SdQkrlkCNa bGU+ZSQlgmQkjNavBP2zYiIg x3psf6CqWIxwF7AwDGWzTTeeQi s0UTMcJMQ6iDY5nP1hQXRoUMks q5V7pYA3C3YjfpZxli8zp2wn HSDiKExoI19ykTXgw2A8JQDumR T2EOQseGezDbVqlW17Ajd+PGNv yFkgv6PtOlnyt9nwv9eguDm5 GmAsRRBnxkZqdAtxJGU5b1WoYz 01Q71xIPgzIAAnBNWfJIYwXXLq aEfkud0vsU8oXr4+PGNvbCB3 jCA4dP1tKUDcLpS0LPewQ635Wf HpxMNkFncio4arv0jggTd0DxPl WEQpkpEbbKlaSVF4z8LbJd32 U45fRBxqVFLuAVZsYEYfKNNduI jwba9ayC1lNd1+HF4ox8btng47 nV74dEP+KASzAPO9vVhwWAxa WSBwcZ0rXSjtJuQ9NPMqZaLucC 24eZIwEImbIa6heMsniTwiVY9q VEExtiikg596OrHpl5reKKZk gAKpHKcpEGV7Y62nt2U4WGBxWF HnZJE0jUD0kV8yqFsjgwtxcJBi cQxjphCwiPxlIIjrRHjvT582 IHRvcDsnPlBhdGllbnQgTmFtZT z2S0QgVxo8PAMvmEedEB7viVTu HQggTe0hpBypyXqvAO3kHTQs csxrl511WgRgk0xcPTOdgTVuBY qwUHJ8J69pu3A0UFBtSLJiOIO4 pGK3vL4gsGshjxrmcXOdeCff cvVfkWtkJFruFUuyS057BTFezV enLsApkrVyPXVxgCC0GM51JR68 fJUkb0Q4wRD2M5YeILJuzjgr elwjaII7GSGrAMFqxS04Tg0tuT llTi8qOPCnYLG3NORfzSBnC8Ls yU1aBjXmKKJnWPOnL3UuuBXh PGcqJ244WUnqNeI7NWPadgUvK3 OeMAYoiTrgMzR3z3L0Cw1IY5U8 IB46ND72uLSdl8Z2uTK3Y6Bx LWHulfwcysleyVC3VGDbKQIxqI 34Ql4tjStqLw2bYBFfCIQ1DTFg yEYdM0VtjZ8wVrCaNCGnSBOa V9AsnJQoMFqbX535IKmfSaW6PJ SfplLgX0ZlSBWxcVhgRbE1a7B5 Jk3XQGw4FD03JN30rBJbu4I7 lQC3N3MtCBYetkxjkaocdMG4HW AqOWJqpB87Mj6dwOuqDs6eZDVk GHC5ILEhaOStY7OkiQ3aBoOg VRMmSXXsI9QwqWUaBVajR552JL goRpU6NBRtuaEvP6BaVLKslHwa JmZ0q8S4Jo8UPYRyBN47GOD5 gJT2IM06LQ28C7JqSuexvMAyeV U+PHRhYmxlIHdpZHRoPScxMDAl BtPryVylOS9wBb8kDEKpQUQs mMozuXLiGeTlp4juLLCoRVqtVK 0wrTtuJ0XvtKL5YRHzf8h4Kk60 Z54kF9AqdNE+XTAtqEO5eZB6 gC4mWeQxQkM3CArgA794QnMjnE LjTtttj2rwv7qmsCr9EoI9PZZc xuErmHwgWQO2r9EuGv08L53q IHdpZHRoPSIxNSUiIHZhbGlnbj 9boK9vCl3+JLYyoNI8oLR4tU2c McZqMnC4QRomU389XrVrnWSr Gxfcc6flv7bijRd3MoGiFJGqfc HxbDsqHPP2i2ChBp81O3AqyPew m9MkUkh8eu92jPDxz3T2rPJ3 D8HtFZNnhudoaHXgiMorAG9xTL OwwukiKTRqjA4jRFIvG0b6AkQx NzX8QOwuF2DvwwH3FXJxfWQm LPveDYD2G27xn3P7BXPzEQPrMF Z0uFI8gK7ehAbrdhoxwCJdaCpx frIhcJzmZTlyKRzgS366JRLt dGpyMEOyuT3nJOOwkSXrlSliAV 4wNTBpbjsnPlNURUlOLCBWSVJH XA0JPIJOPGZ0K4KhVrt7KXFp fUlqPU5vtGBsKMumVo1ouNlxwI kuSS8jDEQbfefpOSFtlO0eTOVi fBAjrZxkHB7oRWJhgnndo627 GiExRKP9YYEuoUPwI7HvkF7iFh YfSYKhZIIqI8IblTKwQQswF793 BYlkWcH8DQHszdCpA8BiLWVk xDpaJxZ3q1R4Rq4iGE5cJY6zBS wfEI74FB02dYKdr8Q2kWT0O2Cw NMBdqhmjupwetUE9SZZpVJNr pD76qGEsPAprTz0av0S9i855CT EdZUBlrX71Ez0fvJxeMCJkyNCC dA2kcgpxa3intyhiEhUwJDFm QOq9IYn1KPVslKynDnPyZCC4Zn Y8VKG2vOOymR8wiTjwcnbgfU9h Oyc+TnalRCTabcY6T4EwLei6 SEIzkLdhBK6goPZgTXltHx8clV cgzBgdHG0fHDSzjsexADQhkI4v KAOtmDHjzFreGL3uMVDdyzsh g592KfBfJKX5JKGcuHHaB7IhsQ 8jRvUuKMLpQSLsH9MesIGeLKtk P439COffDoF4GTCdiiDyH1Il WYIstVmuNtN4m1B4Rw0AYF2DBZ V8C9HvKge6GUEacBzcYB5ejJCt GKprLl1awYhulZelJQ0gYRAv sztjSPSwzH6zBCFkyHYhaWirTY 3tNUDcvpmcj930CgVzGXN4WEQb uQAhU5RipE9eZxGcNAHqBMVk O9JckYCrZJykY025TRblIwN0ZL XqdmNnY1SlKMPzsZbaOcH1y4U2 Yj6EoVXuW7YgZ0y0N9NpBqga dHI+KE56KTAwVZ30pVChfFYcp5 xcfZl6EePqMYYhUUP9tMguSMpn f3KvEJQpM43xvWDfj2S4TXDv yBnamHUtThZpvCI2vL3tMOjbxy gvp5cwhyzeYuemz9afzb36eF36 Y93xSEuuAMPqMOOcMUYeILWg nOigpj4ajK3sOt8+JGOudDC3uC W5dE6jLdNkMiP2DMjrE392WgMg xERsOzjif1bec7weaKd5AoMx FNXlesRngXnjEUL9h3MjXk24E1 9sIHdpZHRoPSIyMCUiIHZhbGln uw5elE5yJo4+FN4gj3dlvp15 bO86jHO+QMOnASJ6wXjmTYuoKW NuzF0lVMztVpC1HUZvVdXktL84 eBZaRNrwLt9sjZcfhKxpKY4l WOHewmhpm937KnKto4jzHFZvuR QdFWbvRMP8R37lw7B8QXRgSRQn ZYS9vHZ6dJ6ekCapmuutsOYb wWekwxExkWojGSebWLifZ065FR UoaFemMaLbnXJzZ8haynLYBD8d OjwvdGQ+WEYhHNW3hOqpXTbn CWPxmE1lCSVbS6b4WzQaQgD4AU tfF4RpiwE1IROgtXLiDCPyqBBW yV8sserln6pkhaftPdPiNNKr SRw4YIo0RMLxxPlaYbBiUVO8Bv X3GBL7fIAhmP6edRlvcexhuL0a Oyc+RklOOjwvdGQ+PHRkIHN0 rUrqPFukYFGkxR9lJWEvW8i2Vz GpNpN4KNopZ3AvdbL6FWXluPWy OFOfuSPNnJ7gbpzbo3rprdwt ZiZkNJYxUVp7EUj5AQCzmJkkOt AsSPD4SbM5OJM2xHWsmR9lsBjb xpvrmU1iOib+TVJOOjwvdGQ+ DTGlWHX6qJvgBRtuSKOanU9xFP IoH3i3RhDdRtP8UQlnM4DgdzO8 FPRzzPZzVGCfyWPPrE0yhrto u6ndrosiYdOhPOKdAFn5RDf5HV IauEuzVsVwEQG5EuF9GMJ6wCIv eN3rsZzijbxwiM1wVhw+UGF5 GPI5AM42FB51Z4BeYndgvMRpmF U+PHRhYmxlIHdpZHRoPScxMDAl LsVavUnsBJ6qXp2aUPZjFTKl bGx (more content not included)... Normal CHLAMYDIA/GONOCOCCUS RAINER ( AB/URINE/PAPon 02-09-2022 Chlamydia trachomatis, RAINER Negative Normal Negative [facility] Comment on above: Performed By: #### R PRQ #### [facility] [address] [address] [address] Juan Antonio Ibarra Neisseria gonorrhoeae, RAINER Negative Normal Negative [facility] Comment on above: Performed By: #### R PRQ #### [facility] [address] [address] [address] Juan Antonio Ibarra AFP MATERNAL FOR SPINA BIFID Aon 02-08-2022 AFP MoM 1.41 Normal [facility] Comment on above: Performed By: #### A FPMAT #### [facility] [address] [address] [address] Juan Antonio Ibarra AFP Value 66.8 ng/mL Normal [facility] Comment on above: Performed By: #### A FPMAT #### [facility] [address] [address] [address] Juan Antonio Ibarra AFP, Serum for Spina Bifida Report Normal [facility] Comment on above: Performed By: #### A FPMAT #### [facility] [address] [address] [address] Juan Antonio Ibarra Comment Comment Normal [facility] Comment on above: Result Comment: Melchor Chaudhary, Ph.D., [facility] Director . References: Available Upon Request. . Multiples Of Median Cutoffs For AFP Elevations Briscoe 2.5 Black 2.8 IDD 2.0 Twins 4.5 Abbreviation Definitions IDD - Insulin Dep Diabetes OSBR - Open Spina Bifida Risk . For further inquiries contact [facility] at [phone]. . This test was developed and its performance characteristics determined by [facility]. It has not been cleared or approved by the Food and Drug Administration. Performed By: #### A FPMAT #### [facility] [address] [address] [address] Juna Antonio Ren Age Collection Date 18.3 weeks Normal [facility] Comment on above: Performed By: #### A FPMAT #### [facility] [address] [address] [address] Juan Antonio Ibarra Gestat, Age Based on LMP Normal [facility] Comment on above: Result Comment: Reca lculations are not recommended when gestational dating by LMP and ultrasound are within 10 days. Performed By: #### A FPMAT #### [facility] [address] [place] [address] Dr. Juan Antonio Ibarra Insulin Dep Diabetes No Normal [facility] Comment on above: Performed By: #### A FPMAT #### [facility] [address] [place] [address] Dr. Juan Antonio Ibarra Interpretation Comment Normal [facility] Comment on above: Result Comment: Inte rpretation: [...] Services to discuss available options. The [employer] recommends amniocentesis be offered to women age 35 and older. Performed By: #### A FPMAT #### [facility] [address] [place] [address] Dr. Juan Antonio Ibarra [age] Normal [facility] Comment on above: Performed By: #### A FPMAT #### [facility] [address] [place] [address] Dr. Juan Antonio Ibarra Multiple Gestation No Normal [facility] Comment on above: Performed By: #### A FPMAT #### [facility] [address] [address] [address] Juan Antonio Ibarra OSBR Risk 1 IN 3501 Normal [facility] Comment on above: Performed By: #### A FPMAT #### [facility] [address] [address] [address] Juan Antonio Ibarra PDF . Normal [facility] Comment on above: Performed By: #### A FPMAT #### [facility] [address] [address] [address] JuanA ntonio Ibarra Race Normal [facility] Comment on above: Performed By: #### A FPMAT #### [facility] [address] [place] [address] Dr. Juan Antonio Ibarra Test Results: Negative Normal [facility] Comment on above: Performed By: #### A FPMAT #### [facility] [address] [place] [address] Dr. Juan Antonio Ibarra VAGINITIS/VAGINOSIS DNA PROB Abdirashid 02-08-2022 Bettye species Negative Normal Negative [facility] Comment on above: Performed By: #### A 1C #### [facility] [address] [place] [address] Dr. Juan Antonio Ibarra Gardnerella vaginalis Negative Normal Negative [facility] Comment on above: Performed By: #### A 1C #### [facility] [address] [place] [address] Dr. Juan Antonio Ibarra Trichomonas vaginalis Negative Normal Negative [facility] Comment on above: Performed By: #### A 1C #### [facility] [address] [place] [address] Dr. Juan Antonio Ibarra ABO and Rh group post transf usion reaction Nom (Bld)Ordered By: Eleazar Hess on 02-06-2022 Microscopic observation Gram stain Nom (Unsp spec) ED Clinical Summaryon 2021 ED Clinical Summary [facility] Emergency Department [address] [place] [id number] ED Clinical Summary PERSON INFORMATION Name: ZULEIKA WYATT Age: 31 Years Sex: FEMALE : 1990 MRN: Acct#: Visit Reason: Rash; Medical problem - minor; POSS BODY INFECTION Arrival: 01/29/2022 20:27:46 Discharge: 01/29/2022 21:17:00 LOS: 000 00:50 Check In: 01/29/2022 20:27:46 Checkout:01/29/2022 21:17:00 Address: [address] [place] [address] [address] [place] [address] PCP: Andie Stoddard PROVIDER INFORMATION Provider Role [...] follow-up with their family doctor or their FISH FARMER doctor. To this they agreed.. Health Status [...] Current Fr (more content not included)... 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 To this they agreed.. Health Status [...] Once. Impression and Plan Diagnosis Sebaceous cyst ([id number] L72.3, Discharge, Medical) Plan Condition: Unchanged. Disposition: Discharged: time 01/29/2022 20:59:00. Prescriptions: Launch prescripti (more content not included)... Normal ED Patient Summaryon 022 ED Patient Summary - Emergency Department [address] [place] [address] PATIENT DISCHARGE INSTRUCTIONS Patient Information Name: ZULEIKA WYATT Age: 31 Years Date of : 1990 Reason For Visit: Rash; Medical problem - minor; POSS BODY INFECTION Arrival Time: 01/29/2022 20:27:46 Primary Care Physician: Andie Stoddard Attending Physician: Johnson Wright DO Comment: Visit Diagnosis: Diagnoses This Visit Medical problem - minor ([id number]) Rash ([id number]) Sebaceous cyst (L72.3) The Pharmacy at [facility] is open Saturday through Saturday from [...] alcohol and/or drug addiction problems; contact the [facility] 07/01 Crisis Hotline -Text 4HMWM om [phone]. If you received any narcotics, sedation, or [...] documents With: Address: When: Andie Wyatt [address] [phone] Business (1) Within 3 to 5 days Comments: home warm compresses clindamycin for antibioitic see your ob, or Dr Wyatt, for recheck apt ----at some point, this might have to be removed; this is not cancer, but a retention cyst of fat material; Return if very red and tender, or fever, vomiting worse You are welcomed to return anytime. Call Dr Wright, ext [phone], if any question patric WRIGHT< ER PHYSICIAN< H Karen [facility] Medication Information: The exam and treatment you received today in the [facility] Emergency Department were for an urgent problem and are not intended as complete care. It is important for you to follow up with a doctor, nurse practitioner, or physician?s cosmetic sales assistant for ongoing care. If your symptoms [...] so we can reach you if necessary. Emergency Department has provided you with a complete list of medications post discharge. Please inform your pattern fitter/provider of your visit and for further instruction [...] Epidermoid Cyst (more content not included)... Normal TYPE AND SCREENon 12-30-2021 TYPE AND SCREEN Antibody Screen NEGA TIVE Blood Bank Notes performed by CV on 12/26/2021 ABO Rh Typing A Rh Positive Blood Bank Notes performed by on 12/26/2021 Normal [facility] Comment on above: Performed By: #### R UBIGG #### [facility] [address] [address] [address] Juan Antonio Ibarra HEP B SURFACE ANTIGEN SCREEN on 12-28-2021 HBsAg Screen Negative Normal Negative [facility] Comment on above: Performed By: #### H BSANS #### [facility] [address] [address] [address] Juan Antonio Ibarra HEPATITIS C VIRUS AB W/ REFL EX QUANTon 12-28-2021 HCV AB 0.2 s/co ratio Normal 0.0-0.9 [facility] Comment on above: Performed By: #### A 1C #### [facility] [address] [place] [address] Dr. Juan Antonio Ibarra Interpretation: Comment Normal [facility] Comment on above: Result Comment: Nega tive Not infected with HCV, unless recent infection is suspected or other evidence exists to indicate HCV infection. Performed By: #### A 1C #### [facility] [address] [place] [address] Dr. Juan Antonio Ibarra HIV 1 AND 2 WITH REFLEXon HIV Screen 4th Generation wRfx Non-Reactive Normal Non Reactive [facility] Comment on above: Result Comment: HIV Negative HIV-1/HIV-2 antibodies and HIV-1 p24 antigen were NOT detected. There is no laboratory evidence of HIV infection. Performed By: #### R UBIGG #### [facility] [address] [place] [address] Dr. Juan Antonio Ibarra RPR QUANTon 12-28-2021 Rapid Plasma Reagin, Quant Non-Reactive Normal NonRea<1:1 [facility] Comment on above: Result Comment: Plea se Note: This test does not meet current guidelines for screening and diagnosis of syphilis. This test is intended for following treatment response in patients being treated for syphilis infection. To screen for syphilis infection, a reflex cascade that includes both RPR and a treponema-specific assay should be utilized, such as Treponema pallidum (Syphilis) Screening [place] (967973) or Rapid Plasma Reagin (RPR) Test With Reflex to Quantitative RPR and Confirmatory Treponema pallidum Antibodies (968566). Performed By: #### R PRQ #### [facility] [address] [place] [address] Dr. Juan Antonio Ibarra RUBELLA AB IGGon 12-28-2021 Rubella Antibodies, IgG 3.48 index Normal Immune >0.99 [facility] Comment on above: Result Comment: Non- immune <0.90 Equivocal 0.90 - 0.99 Immune >0.99 Performed By: #### R UBIGG #### [facility] [address] [address] [address] Juan Antonio Ibarra CBC AUTO DIFFon 12-26-2021 BASO # 0.0 103/ul Normal 0.0-0.1 [facility] Comment on above: Performed By: #### A 1C #### [facility] [address] [address] [address] Juan Antonio Ibarra Basophils/100 WBC (Bld) 0.3 % Normal 0.2-2.0 [facility] Comment on above: Performed By: #### A 1C #### [facility] [address] [place] [address] Dr. Juan Antonio Ibarra EO # 0.0 103/ul Normal 0.0-0.7 [facility] Comment on above: Performed By: #### A 1C #### [facility] [address] [place] [address] Dr. Juan Antonio Ibarra Eosinophils/100 WBC (Bld) 0.4 % Critically low 0.9-7.0 [facility] Comment on above: Performed By: #### A 1C #### [facility] [address] [place] [address] Dr. Juan Antonio Ibarra Erythrocyte distribution width (RBC) [Ratio] 13.5 % Normal 11.0-15.0 [facility] Comment on above: Performed By: #### A 1C #### [facility] [address] [place] [address] Dr. Juan Antonio Ibarra Hematocrit (Bld) [Volume fraction] 38.9 % Normal 36.0-48.0 [facility] Comment on above: Performed By: #### A 1C #### [facility] [address] [place] [address] Dr. Juan Antonio Ibarra Hemoglobin (Bld) [Mass/Vol] 12.9 g/dL Normal 12.0-16.0 [facility] Comment on above: Performed By: #### A 1C #### [facility] [address] [place] [address] Dr. Juan Antonio Ibarra IG # 0.03 10e3/ul Normal 0.00-0.03 [facility] Comment on above: Performed By: #### A 1C #### [facility] [address] [place] [address] Dr. Juan Antonio Ibarra IG % 0.3 % Normal 0.0-0.5 [facility] Comment on above: Performed By: #### A 1C #### [facility] [address] [place] [address] Dr. Juan Antonio Ibarra LYMPH # 1.4 103/ul Normal 1.2-3.8 [facility] Comment on above: Performed By: #### A 1C #### [facility] [address] [place] [address] Dr. Juan Antonio Ibarra Lymphocytes/100 WBC (Bld) 14.5 % Critically low 20.5-60.0 [facility] Comment on above: Performed By: #### A 1C #### [facility] [address] [place] [address] Dr. Juan Antonio Ibarra MANUAL DIFF REQ NO Normal [facility] Comment on above: Performed By: #### A 1C #### [facility] [address] [place] [address] Dr. Juan Antonio Ibarra MCH (RBC) [Entitic mass] 29.6 pg Normal 26.7-34.0 [facility] Comment on above: Performed By: #### A 1C #### [facility] [address] [place] [address] Dr. Juan Antonio Ibarra MCHC (RBC) [Mass/Vol] 33.2 g/dL Normal 29.9-35.2 [facility] Comment on above: Performed By: #### A 1C #### [facility] [address] [place] [address] Dr. Juan Antonio Ibarra MCV (RBC) [Entitic vol] 89.2 fL Normal 81.0-99.0 [facility] Comment on above: Performed By: #### A 1C #### [facility] [address] [place] [address] Dr. Juan Antonio Ibarra MONO # 0.5 103/ul Normal 0.3-0.8 [facility] Comment on above: Performed By: #### A 1C #### [facility] [address] [place] [address] Dr. Juan Antonio Ibarra Monocytes/100 WBC (Bld) 4.6 % Normal 1.7-12.0 [facility] Comment on above: Performed By: #### A 1C #### [facility] [address] [place] [address] Dr. Juan Antonio Ibarra NEUT # 7.7 103/ul Critically high 1.4-6.5 [facility] Comment on above: Performed By: #### A 1C #### [facility] [address] [place] [address] Dr. Juan Antonio Ibarra Neutrophils/100 WBC (Bld) 79.9 % Critically high 43.0-75.0 [facility] Comment on above: Performed By: #### A 1C #### [facility] [address] [place] [address] Dr. Juan Antonio Ibarra Platelet mean volume (Bld) [Entitic vol] 10.0 fL Normal 9.5-13.5 [facility] Comment on above: Performed By: #### A 1C #### [facility] [address] [place] [address] Dr. Juan Antonio Ibarra PLT 194 103/ul Normal 150-450 [facility] Comment on above: Performed By: #### A 1C #### [facility] [address] [place] [address] Dr. Juan Antonio Ibarra RBC 4.36 106/ul Normal 4.20-5.40 [facility] Comment on above: Performed By: #### A 1C #### [facility] [address] [place] [address] Dr. Juan Antonio Ibarra WBC 9.7 103/ul Normal 4.0-11.0 [facility] Comment on above: Performed By: #### A 1C #### [facility] [address] [place] [address] Dr. Juan Antonio Ibarra CULTURE URINEon 12-26-2021 CULTURE URINE Culture Observations : LIGHT GROWTH OF MIXED GENITAL ALONSO. NO POTENTIAL PATHOGENS SEEN. Normal [facility] Comment on above: Performed By: #### R UBIGG #### [facility] [address] [address] [address] Juan Antonio Ibarra GLYCOHEMOGLOBIN A1Con 2021 ADA RECOMMENDATION SEE BELOW Normal [facility] Comment on above: Result Comment: ADA RECOMMENDED LIMIT 4.0 - 6.0 ADA THERAPEUTIC TARGET < 7.0 ACTION SUGGESTED > 7.0 Performed By: #### A 1C #### [facility] [address] [address] [address] Juan Antonio Ibarra Glucose [Mass/Vol] 114 mg/dL Normal [facility] Comment on above: Performed By: #### A 1C #### [facility] [address] [address] [address] Juan Antonio Ibarra HbA1c (Bld) [Mass fraction] 5.6 % Normal 4.5-6.2 [facility] Comment on above: Performed By: #### A 1C #### [facility] [address] [address] [address] Juan Antonio Ibarra US PREG TVon [...] by: FELECIA GOLDMAN Date: 2021-12-07 16:59 Normal [facility] Coding Summaryon 11-21-2021 Coding Summary HTMLBase 64 VcglmeusGCf2pUy+PGhlYWQ+PE 2MQRZpR81pfWRmsB8BW2zXDJ2I EJNWDEWNAV7FJT7agRZ8WTmnE2 VybiAv RhnfwRNyEG70BLu0ECQ3aTkfEE gzzP4nxYQnP6h1TzVnAU23bM81 FLllKYGhVdA8FmSgmrdrhDLn W2fqHbRzpNSyHhc+PHRhYmxlIH awEOXtCUtcVXTpTeRhsCgfPK6a Cz2pRNKcGMGvdZypyMUtJbNb v7tpENUrSNmjSK4slJebO6TohQ G9PALma9a9Lo41rAT+PHRkIHN0 wEjvDLuqe507ChHkz9xdBQN1 aAYbEKxtRRE5A33rp6H5MNPuLA TkHIA6bAM7zC8lzFyslhlgU3Lt iEVgAkD3VOZ5gBIlsW3kcXkk fvjmuI0oRca+O16SLN7IMXZHSP 9XUiv1Q0SzMqklzPQ+GQ08TCYn UR71sAEkiSLbh7gpoRl0NuDt ISRwWNE2pUgxJUssf3QtKOPhV7 7dzESrc7D5EWAojVosjNMkYjVa rMP6vI0zQExkjrtft7lxcozt Igvyn4qnpx08xB50S00wPTliEZ UaLYG7NVGxQLRbnKafmd1fzL1r Ii8+NHtry1ixq3xyzDv1SaXq ZYFrfpUplWrrEUM9o1VvXl24Q3 AkoLvxz0JfZbf0eh78yGStf0H7 lBX8RLygXSIkfW3dYVntGiM0 REIwAxKdlD37bVNdGYrkLa5wbD sxtVyxWF9eERLtxpdtNSUrvQ6l WCRqpHExkEnqXF3sRGFwjnye y907GhVdXTM0EJDivZVkJ3GjsD 5oHiHyFKExETDsX7EhbYOiJKcm B619XKawPoS3SFRxeeUrD6Ad NMSbvLmwReF2v3Q0Ur4Qi2Rzhe bmHOR0UDtbYCN5FkA2BqTtOpE9 F8YiYhj6XLYsxQarWY7eD7Ji EGJokusjmajtxAI1LEZsVHYciP 75oQCwSZnsYl4yq1Y4b806JVSn OFQxjG70Cy2cgFooIILadIDN pM1vriyrt9gthfaiJqUgKLYxXJ z8VZo2XRRqjKppGxUoFBK6VgW7 WFL0uYAmhL6dtZglqdeubY3q Oyc+R01enJ7lPMD9HHF0imcbBS EhesFrUF13VF41I6OyMwfbbNGy bGU+DIMcdqJslXvbFT3xBmHo w0hzw7NgYPduL8LdCKQnUYwyRh l5ERHvOMK8hKB2pV5qNJNfJVee i1X1hAV6F6EkhlEawo0nj7ve WKFgBNbwW43viTFwd4V5RHXxgA F8KPCiuCtxRdIrnR46Cgb+PGNv hHwvu3LaYurjf9jow7cleWj7 ItOnNYYmmvCgqIvtNYS7q1YiUh 82Y65bJWjnBSPrTVMxZXOfLUZi wAwoxm3bzW9jDf4+PGNvbCB3 rXP7bB9rAQBsJoN0FUgpT763Of TkaJUzLgszi5ljv7frdTw2IlZh AVQvwhLdxVtpHXR9z7GmIx58 A65oLMinVOSwOFYxSMGpPJXwdI nses3voR4qHe8+AP7tp7vydo89 uX59nHI+DXWtVWJ5kVhxDAcf DKHnkG5cJJjzSyF1MSGbRbKzsJ 73hAWdWGbeCq2iuUvufAavXR5m WPXpxqshx951GsPqj1fhVAHm uEKsLCljMKE6E03ch2O0VANcFT JuUVI3hTV4dQ3dqHwedududQLj lQasdrQqjEmcWQbaKGkwO020 IHRvcDsnPlBhdGllbnQgTmFtZT t2J9XaHzs5ATBtqHawJX1ftJUg CBcpWd9xmJzxzYqcFM9cWYGu wdrrg498EeRiv8gfFLQkrZKiMR lvKLL3K52dt8E1ZCAnEOEiEOJ4 eWO4vO0fuJmboigzzBRvaQpo wuVdwYcpHOjfENlaK942MDOunR seLxYasvIoJJNkyDC0OK86RI78 qUIam0Q5iSM6Y8IjUDWykgfj mxrlzXT1LWKxFWKwtB69Xe0onZ ekOo9mORUwJME5HVRyoQOxQ1Bn bX9pGjRlBKEtEWDzA9VxzHDs VZnlC318IGeiFpD3TCBlpvAoT3 NdXDPdeFcrDcH4v3M2Nq0MW0I3 RE50SX82vTBlv8Y6sKY0E2Fp EHIqjcjluecmxHP9RPRiZUPwzO 27Ha2mdWiaDo0nRQKaCSE4RVLr pQTsA9YwfZ2mUzFgBIKyYGYm N4LknSJfORtgU664ACldWwB2EL AeqpLqH6LjGRXkgXzxZmO8n9N3 Cj4ZUVm0VN69LT87gHAcx9R9 jLF7Q8YzITAzgwoarsrkwWH9CG AaQEQswZ01Di2tbQifHb0nFRAn XOU0ARVuaUQzD4AyzB5xTwLx LYXvQAJoJ0HcxNBlMObtA394LI vvXlS2ICTtwiEwQ4OwCIQisWri GkV5g1X9Gt9AEDNfKA28UCV6 fVJ8PA96ZQ12N4SyGqzzyWJgoJ U+PHRhYmxlIHdpZHRoPScxMDAl DjCvmBhrUA9tMh8gYVMrZRWb kEigrHWrIpDdb4qpYGXwCAquMN 2obJrnQ8SeoCI3UCYsj8a8Nm27 Q41yJ6VrgLB+BSVkvIP4bNE4 yS0fFcTgZvN5KXzvP163DoTsrX PcZqfwn6jhc4rvvPl6DdE3RJFi hsGblDbaBHD3e7CrUl01G79i IHdpZHRoPSIxNSUiIHZhbGlnbj 7hcI1cTt6+SXJpxRV8xJK8eO0g GeTtPaL9FWpcZ121GvUopALf Zqtlp2wql4rttXk5KoPfPWCggr FvkRujSBV8y3VdYk51J7WnpLrz j9SgCet2un09eCVzg4C5bPZ5 A7TnCWMatxecaZLquHdvRU2pVA NjelsaIOLmqZ8wMVQsE7x7KlSv MpD5ILreG5KmfgB8EXZvgNHd BYhtCPF1R96gh2O1IXPnOVEdII V5dQZ8fM9oyZrugbodvVHyeHrw uzLlgKraDZzqMLxlI106YHXh cQweAFGdjV5iCTUkyWGxrDrsQT 4wNTBpbjsnPlNURUlOLCBWSVJH YW5JTRZXQWT2O6CtIsp2SGWh jUoyFI9zdKCnFBiwQh1hlJyzbV zrPK8bLIIfpunoXYXubM6mUBUn gRAtmWnzBP1vECYpxfuxj485 GqIaWEM3KXKejDIqZ3DvzX0hPv IgHHFyAVAeB1OohAYoPFakM242 CJvuEaK3HOUskqPqP7PwDSMu xUidQyC7m9B8Eg3gDI9uGJ5cKF veDX77OH99wDZjg7T3qBI8F4Mw TMRqysmjzovrvKL7OUEkEATq fE53cPZvJMkrVw2lu6D8b894VW AlGDQwmR71Lw8ucDwyXSZzyTYX cM5wdcmjh5zkbwzwAxXrQBWs CGt6KCc5YKXtlGccRmVoFCI2Ao L6KUH5vDAwaC2pcLqteayspR5g Oyc+MlgiZRXwxdM5W5HdEfi4 SGUgjEjgEB5iyWJzWArrPh8ohH looSqaEH5bOCChcghcEPFqsW8e ELEarZWwfBvdEK5qIYVhxesq o300RdRgFGG6GYNdlGCmT3CjvV 8bYpDeWNQhVEAyS7ZljJIrBCeo T190DZziXyV1TOIizhXuT6Ci UEXaiTdbFyU7m0Q5Mc7MXC7FZW T1J5PzDtd5AXCsjLgtNZ0ceXZa XKtaZv3ozHmoqYrjFJ6hKAKq bzbzUBSlfU5lCCInwNFjuSjpBE 7dEUKfrnzsw209KhBzVVG9TRZl uUKyG1RvoO4aBhRtXIKsPBVp N5WklCTfZFouJ122IPxxTlM2UM UcxhFhA6QcPQEvnQemYaD4z9T8 Ny9QRNnzpJE+CB48oq62G3Pr ThuaXoi4KOHmZGL4bDG1mT7hLE BxSHald5O7rIR3N3RdarJydo0t u3rfUDWnOYjxN33dpRDpe1E7 WOFvuTT9CRNzsMkoYvJlbG19Ce c+GTNduEziv1NgCckqk4zbo3by rEg1KmLvOZNlskOzxOzxOXL5 u0ZpRr14L01iCRruDVOdBYHdEO WvSGUecVsded6bzR0lXf7+PGNv cUJ4lPR3nE2qBzMoHbG1ALlj R058HoFhxSUqSrujt6eef6keoM k7PfFiEDOwfrUrsAlsMYK6j7Wo Xz29J3FrtQvte4OdDsa9dd19 xODtm2Y8rEF5V7FaVTDpjyrpfA JxzNklYS8jUMYgjrloNMGjlP1l ZUGoA9y2ZtReUfP2EXpiV5Ly czB3OOUlhKGfKYKnvFSInD8eoo wfg1yfxyeqWlXxXEOsMRn8IIl9 JMYvhHsaOsSvVTD9MgQ1SYO4 sDFghY1okBpmzrlzhK8wOvo+UG d3c1ftyPHcPI3jqVB4TC46ZD05 dBRyi7L8zGF0J1XuVGFbjmho skfmzVJ7PHSmCHAybV30Hv0puT nrBy3fFTBuAZK9WMOfdGReQ7Gk sQ0sYkItTHMaRPOzV5ObzISy FFzfN852ZUlfBmU6XKDjcxDnF3 TdPWFdtWglPhY0t2M5Uu5PCH91 SI82JF18sGXcj6W2oTP9H0Bb BWCuqlamndtjqJN2OGLvJJFmfH 97Pl8edXehDb7uUKWdCVL1MSUu wHHiA5WsqF2cBpKtUIGsWWCg N9EpeTMoFSepC257QQugInS4QE PkblCpW1ZrVXQcrOrfTjK7g5X6 Jl7BLi32IR92HD30eFFea0M5 aKR3Q4BkDWHkzptcttqkjEI2TG DqIVZouC24Yx7rdGgpZf6kEPOd PKF6FAOauRJgF1IdhX3qJeIc ZAYtGONyC5VhlCQhPJsaT334YL gsCxI7PNXoehFrH4WhKWXdsLjf HjF7t9M5Oi9WKPdxaem8O0Ox PjwvdHI+IL44HMCxDG37lTRooF Hmx6qgrJn3IwVoWJNkMFJ0jMaa NUtwq6VyJZPlJ10jrFRfo5O6 IGN (more content not included)... Normal [facility] Coding Summary HTMLBase 64 IjlsincdQTj7cPm+PGhlYWQ+PE 1AVWEmI83jdCAajW5BR5tRPE8X UZVIPIXONX9GDL8fpRH1AJhuA7 VybiAv ChqnkDCbAH21SIe2QAR9fRrvKQ nojZ1cmVYzR9u9YvXmKY57aE67 YWjkTOCzDqX5GfSyviutmNRr H0udVhWvaZZqQyc+PHRhYmxlIH ahIEZbSZylEWExTpUjeVviVX8c Wh5rVWGgUNMjnExghSYqAoAp f2trBYFlJAmtZO6jqVglG8ZxbI S0JSVct3m0Gu83bRP+PHRkIHN0 nQdeXUoaj457JsPhp5jbCRB0 hTXdFKplOSQ1A31ys3I1ADWiFE XzNJB4wOM3gH2alKmgjlpdY0Ep cVEmFxJ9WTS3rUYcpV6cgIkl fujaxE3jLjt+R63ATD8CVWZEUS 0LGpr2X6UqRjuguQN+ZG52PLAv IC17bBYnrQHmi5wabNp5TbAg LPWjGEA9eNjyXJhit8MgPPWpZ1 7qfDSxg2R0KAKtrDmvkINsQyUw hNX8dH6wZZrktfhsu0pqztdc Hitza8maag58pC17Z47eCZtkZF ZpICL5JQFsAEYizCqysr9urZ6b Ii8+NAykv4cqu1gzhRi4EjJf RUThgmUawQmvETE4j2CdGr19X8 AyqIicd1XiCmq2ob38fAIyi0D5 xDE6PLrsICKrsR8mETwsLdA4 LPXjDcUjbY38lOGtUYruKm8nfB lrnDscOE5eVBLyerwkJYDsoF2n FNLuaFGumOilED8mUOBpftgj t498JhBgKDI6VNPteNWxF0FuqU 0vZoZwWBVfWZUpU3KhuKZiAIvq V148PRzbMjG4YCMuvpGzN1Sf UGYcbXnvNxJ7i8B2Te1Ao7Sqgq ldWNY2UWhnQRU8LqL2DpSbIoL8 R1BtObf5ACHwvCajHP9tE5Vy TKHheirjuuwtsSA6QQUgCPFjtV 93bUTlNZhcNy8vp3Z1c188VJBp KMXvmR60Sy2bbVglTKOgcLOA cP4bldzkw1hhcpoiLxXbZWRhRB i3PQv0YBKllOofGtGkXBH2MoN4 FIS3xMHgrJ7coJsbekpkpM2j Oyc+L62wwE2cPFB1HAL7hxcjBY AxktSeYS17EI85W5CqFungvEDa bGU+AGFtcuStnLpwWY6tSxMb w1hww9QpZBaqC5UwKTCzUZpuBf z5BFItCCN6qZY9uY4fUUJuIInz f0C3eHU0U9AtayLmsw7ui2nc JWRhJRgsK12gtXKfp4Y6PTTvvE S0SJJelFhfQsXpiT95Rhr+PGNv gFlog4NtZzwud0ayl0qiyNg7 QhMwZSUuxuXgwHmaQNG2f8OvSg 95I63nLKpjKLWuGBJoUIJlJRFc cZuphn2hrP3nVo4+PGNvbCB3 lHJ6wE7dKAVxFdW3TKkgV792Uf HkrAIiZyvbc0lrk2oxuKg5JvKc YWEzmoSkbOufDWG9v0UcRo85 L14jLGxnECMtJTBjTLYjGOBfwI jpup5yjM7iYr7+UJ9sd4dwdr40 jJ04iKC+QSWjKUV1eSxnDTxe NLLmtB0eHNeaFoG2MYTwApTslN 96mKOyWWbtZa5qmRrwuWzcGI0h EDJlvkcoy982ZpDxt6qcIFLh hQQrTMenWDP9K42ll1Z0OPTlKW FbCOS1zPK3nC6wdPmwsspngMLd aFczrfIuiMdjFGfnXUpsR547 IHRvcDsnPlBhdGllbnQgTmFtZT r9H3WyNis5LRLgnHtrMS1irOQf WAgeNl5ixNrvpMmnAX8sZTZf agnzw791IbDvs7mePVCgxNVhZG nyIWL8U75je6R8VVVdDHEmDVF7 bLT3rP1zkPtqttemiLCsiTge qxJlyHaaLBsxOHubM910ZADanT vfHdUuroUkYIWsgFB1BL58FO80 gYViu5H8aXU3V7JrNFBjyjpx selklTJ0DDKvNBNgbY73Zm9quV glIa7vKUWyRLS2BMRvkFGzZ6Dg lK0yGuXqWJWgTHRoS1XtqYLu FBbtT533OAtaRoK0VUNojoDaQ3 GiHAOcuTzcWaV2o8L4Ns5ZC3X6 AZ88MU04ySPzj3H5fDO3N7Lm TSFuulzduvydxZX1MAIdPVFksM 17Og8fiUrvNd4vENSiNYU7JAPm rFNaR0EbbJ5rCnDmWIYxZHXy F3UedZDxUUxuT195ERloGgE2VH LbbnBiK7PkPOSkfUgzTlJ7n1N9 Tc2DWMh4MM33IY13sVNhg7N9 aAJ9Q7AcMCBztbhlrrbjlKL7GF FmNDJmlX95Dx5gjHxgSw7nGKNd JMC7AOPocQXlK5JdfM7aSaXq THUqGKYhR2TguZTfPPvpH118PK xpOaQ2SPGvbjMqP9MaLMJcyNoy ChZ0a3C4Jy9JJIGaXL32FBK0 eBH1UX32IJ76N8EgJtdzrHBfeP U+PHRhYmxlIHdpZHRoPScxMDAl DrAtyPjvEO8hZy8rVGXsAZBe eRsavRMbIeCqa6pvSEQeAQpgKF 4leQjlI2HsiQA4KXFpf3b3Oj48 J35hX0AocMS+DGBhnEL5jNB5 eC8kBfVcMyD2YSeyD582DkWwmJ ClZbihq3bel6wnxKj8ZsH1QVWj bvYclQtvXUW4s4PxPz09A07x IHdpZHRoPSIxNSUiIHZhbGlnbj 6iiU6oMs8+JLMjiWL0kPB9fI1w DsErBhF3MPtpM184DeTgqZBf Wukhy5kmm9yxnOj0WlHvMKDlrl IvjFjdNEH7s7SpMt07B9CqwHqc w3AcDob7tr56dBUon9N8qBP0 U7TvMXWyvjaspTQfsXwhIJ5eDK YwiuliCIUadD1xDXShO2q4QxNx PoG1DYmqQ6WrjxB9MMNuhDGe JNwsEBF6I63kb9H2QEWiJUMsED S1tON3eY6koJzmnpouaJIilNlo kgGdkPjbGNbpUIpaK576TIBx dLmlLALtbY7zNJFumPCkjDkmMP 4wNTBpbjsnPlNURUlOLCBWSVJH GU6SRREDVVT0U0LzVnx0KOKb kDaxMV6geBDrPUhsMu7vbMpcpJ olHV7rPIHrcotlAGWujM0iAEOm fVKniEslCH0cUWWylnpqb919 EzLkZWV7CAAxuZWoP5DrsZ2kBt RjDRDeFNBfB4LwbUGzMQfvP186 ITluMyH5HTKlnmPtD1ApQTQr wFouTvZ5v7V3Xp1zCN5bLI8uVT qiNV69TE78vZFus9N5kTT5P1Hw AROayanrwyuuxPR4IEJtUZEn gV25aAYvABddTj0fq1J7l905UW FtEBSjuR60Xu8jiJelURUeoUQA nF2gmkweq3nsqbocHbPuYHCy ITe7VMd4LXJdbBtwYlVvMAP2Dt K3ONZ1vJEbuJ9dbHdeqrwuoP3q Oyc+PsalWBNykqW8U0PrIrj0 ANVehIquOZ1qaGTlZAkkWk1zsG wisBeiXM0pFGBudcyyDHHlwR1c JDZwuPFvfLtiIS7sNHPrnfuw u538JvPgQVG8QGNpqFFoO1CkkJ 6lMdDqVAZuORAbV3RcjRZwDCib H406YTpdDoP8RXPcpnQoD9Gm IJUaoFanJdP7k8O2Af3NCW2MLU R4E1BjWan1KEEutMblLB2juXQs SXzvRc5hcAyahMjrTK8pSUKv dzfdQSFxuQ7mEAYntLUjzPixTT 5fZRXvxsiyg461HrQjTXV9BSFf jNQsM7BknP8xOsVqBIEcMTRu A4OanXPjGRwiT997SWwqEyD7LF QploPvJ7CxYZHgwTasLgQ6d8Q8 We6DzMIqI2JsE5m6J7CzYpsr dHI+UV81LJXcTZ52tLXuzGEfp0 ewhTu3DyTtZVCpKTG5gJcbEHfu h9UfVACiR17jxZDho8G6EFJm jGqbhBQbVvYbjMZ0iM3hJZpqyi vgk9zeikfsRyrlp2dftb29dA10 M27iAQmwZZXpJBBeGVRsGWRk nIesud8fuM2iUt7+WPRyvCC7wG Y3zC5iDhRoKoD5BKklO999IvEv sNGdFtskg7ise6cqmUo7GjVp CHZfsvQgcHlbBTN9u7ZnCj17I6 9sIHdpZHRoPSIyMCUiIHZhbGln gj8zbC2jRp2+SP4qx0lvtw30 dU85zAV+TPFaIJB4mQlcZBblPJ EojH3pUXwjEqY3EYHjCvUreZ99 kBPuULsjJi8vxTxrnRfhOA3f ELItetfxr069XaVol8gvXMPljU KmZUgjDDE1E58nf7F4RUTbNNRv MNB2qDN1cF9xaQnaryoufTUq kOquzbAkhYzzQZglZYiaO198KY SdjAiiTvGjjMDiV4pvfdCFQW4p OjwvdGQ+ZNEjKFC0tZxuQUfk NGAmaD6pVEYwP2p8BeMpIbH6PF pmJ6DvaiG8ONOfaCGlCCHmkXNJ rT2zyxroa4hvcnymUqBoBEEl XKr1FQf8ZTNgbSgbLpJvGPD6Yk S3YAI8xYGdqY6toUebdudeyJ6i Oyc+RklOOjwvdGQ+PHRkIHN0 mItoSJybKKAiuF2cBJLeC1r8Nv ScHnH0AWabM8JdilU0MKMohHZs MIIriRLAuL1owbwqq2gbavqw HqScAPCqNTr8VUe1DZKnoAtzSb QxDCT2BdI9XWE5gLBjtE5lnYhh gutsqQ4uPog+TVJOOjwvdGQ+ ALDlQEU7xCirWUrkUVDgpZ1sRC RtQ4k9BjAjFdV8HNtnN0EaxtK5 IXPgiHBnBCJvcBNUzP2nvvyg v2yqhsuqKbDbPBSoXIy4JPg1OH OwmDagUdWwGHV7AuZ2JFA5cEDd gM9imIkizbqaiX4jDqa+UGF5 NQY6OU59MZ53V5HsVjqtrUPgaK U+PHRhYmxlIHdpZHRoPScxMDAl PfRukLiiTG1ePl0uSZEuKHJn bGx (more content not included)... Normal ED Clinical Summaryon 2021 ED Clinical Summary - Emergency Department [address] [place] [address] ED Clinical Summary PERSON INFORMATION Name: ZULEIKA WYATT Age: 31 Years Sex: FEMALE : 1990 MRN: Acct#: Visit Reason: Rib/trunk pain-swelling; ABD PAIN Arrival: 11/13/2021 16:30:24 Discharge: 11/13/2021 18:01:00 LOS: 000 01:31 Check In: 11/13/2021 16:30:24 Checkout:11/13/2021 18:01:00 Address: [address] [place] [address] [address] [facility] [address] PCP: Andie Stoddard PROVIDER INFORMATION Provider Role [...] Follow-Up: With: Address: When: DIANALANEY [address] [place] [address] Within 1 to 2 days [...] results be sent to Dr. Ortiz, your [employer] physician. She will contact his office tomorrow [...] Patient/family/caregiver verbalizes understanding of instructions given Comment: [facility] ED Note-Nursingon 11-13-2021 ED Note-Nursing pt arrives [...] 6 with steady gait and no assistance. [facility] ED Patient Summaryon 022 ED Patient Summary - Emergency Department [address] [place] [address] PATIENT DISCHARGE INSTRUCTIONS Patient Information Name: ZULEIKA WYATT Age: 31 Years Date of : 1990 Reason For Visit: Rib/trunk pain-swelling; ABD PAIN Arrival Time: 11/13/2021 16:30:24 Primary Care Physician: Andie Stoddard Attending Physician: Gamaliel Wyman MD Comment: Visit Diagnosis: Diagnoses This Visit Elevated blood pressure reading (R03.0) History of abdominal pain (Z87.898) at early stage (Z34.90) Rib/trunk pain-swelling ([id number]) Prescription Information: If you have been given a prescription for narcotics, seek immediate medical attention if you have any difficulty breathing or any sudden status changes such as confusion and sleepiness. If you or anyone you know is experiencing suicidal thoughts, mental health, alcohol and/or drug addiction problems; contact the [facility] 07/01 Crisis Hotline -Text 4HTRO to 672491. If you received any narcotics, sedation, or [...] legal documents With: Address: When: CUONG ORTIZ [address] [place], [place] [id number] Within 1 to 2 days Comments: Diagnosis [...] results be sent to Dr. Ortiz, your FISH FARMER physician. She will contact his office tomorrow [...] treatment you received today in the [facility] Emergency Department were for an urgent problem and are not intended as complete care. It is important for you to follow up with a doctor, nurse practitioner, or physician?s cosmetic sales assistant for ongoing care. If your symptoms [...] so we can reach you if necessary. Emergency Department has provided you with a complete list of medications post discharge. Please inform your pattern fitter/provider of your visit and for further instruction [...] Temporal: 3 (more content not included)... Normal hCG Quantitativeon 2 hCG Quantitative 34188.0 mIU/mL High 0.0-0.6 [facility] Comment on above: Order Comment: Lucy whitney call or fax results to Dr. Ortiz's office Result Comment: Resu lt confirmed by dilution Post-Menopausal Reference Range is: 0.1-11.6 mIU/mL Performed By: #### 7 [id number] #### [facility] (DEFAULT) [address] [place] [id number] Coding Summary.on 12-19-2018 Coding Summary. CODING DATE: 019 FINAL [facility] DSC STATUS: Left Against Medical Advice PAYOR: [...] Boykin Date Saved: 12/19/2018 10:35 am Normal [facility] ED Clinical Summaryon 2018 ED Clinical Summary (Inserted Image. Elena ble to display) [address] [address] ED Clinical Summary Person Information Name: ZULEIKA VILLALTA/[facility] Age: 28 Years : 1990 12:00 AM Sex: Female Language: PCP: Marital Status: Phone: [phone] Visit Id: Visit Reason: Test; MENSTRUAL PROBLEMS [...] 12/15/2018 5:58 PM 12/15/2018 5:58 PM ADDRESS: [address] [place], [place] [address] [place] [id number] PHYS DOC NOTES: MEDICAL INFORMATION: Prescriptions Given: PATIENT EDUCATION INFORMATION: Instructions: Follow up: DIAGNOSIS: Normal [facility] ED Patient Education Noteon 12-15-2018 ED Patient Education Note Normal [facility] ED Patient Summaryon 019 ED Patient Summary (Inserted Image. Elena ble to display) [place] [id number] Patient Discharge Instructions Person Information Name: ZULEIKA VILLALTA Age: 28 Years Arrival Date: 12/15/2018 4:37 PM Discharge Diagnosis: Primary Care Physician: Provider Information Primary Provider: Advanced [facility] Operator:None The exam and treatment you received in the Emergency Department were for an urgent problem and are not intended as complete care. It is important that you follow up with a doctor, nurse practitioner, or physician?s cosmetic sales assistant for ongoing care. If your symptoms [...] opioids can be used to help relieve nudvhapv-tv-okrhwh pain and are often prescribed following a [...] be struggling with addiction, tell your health acute care nursing assistant and ask for guidance or call [facility]?S National Helpline at 8-610-236-ZNZW. c Source: [place] Department of Health and Human Services/Center for Disease Control & Prevention [facility] Medications Given: Medication Dose Route No medications found. Medication Information: Comment: Pharmacy Information: Thank you for choosing [facility] Patient Education Materials: JADEN Jacome [place] , have received the following patient education materials/instructions and have verbalized understanding: Patient Education Materials: Follow-up Instructions: Prescriptions: Patient Signature __ Date Clinician/Nurse Signature Date 12/15/18 17:58:10 Normal [facility] Progress Note-Nurseon 2018 Progress Note-Nurse Patient: [...] to take care of her daughter. Normal [facility] U BetaHcg Qualon 12-15-2018 HCG.beta subunit (U) [Moles/Vol] Negative Normal [facility] Comment on above: Performed By: #### 2 [id number], [id number] #### [facility] [address] [place] [address] UA With Cult Reflexon 2018 Bacteria LM Ql (Urine sed) TRACE Normal Trace [facility] Comment on above: Performed By: #### 2 [id number], [id number] #### [facility] [address] [place] [address] Bilirubin Ql (U) Negative Normal Negative [facility] Comment on above: Performed By: #### 2 [id number], [id number] #### [facility] [address] [place] [address] Clarity (U) CLEAR Normal Clear [facility] Comment on above: Performed By: #### 2 [id number], [id number] #### [facility] [address] [place] [address] Color (U) YELLOW Normal Yellow [facility] Comment on above: Performed By: #### 2 [id number], [id number] #### [facility] [address] [place] [address] Epithelial cells.squamous LM.HPF (Urine sed) [#/Area] 0-2 Normal 0-2 [facility] Comment on above: Performed By: #### 2 [id number], [id number] #### [facility] [address] [place] [address] Glucose Test strip (U) [Mass/Vol] Negative Normal Negative [facility] Comment on above: Performed By: #### 2 [id number], [id number] #### [facility] [address] [place] [address] Hemoglobin Ql (U) Negative Normal Negative [facility] Comment on above: Performed By: #### 2 [id number], [id number] #### [facility] [address] [place] [address] Ketones (U) [Mass/Vol] Negative Normal Negative [facility] Comment on above: Performed By: #### 2 [id number], [id number] #### [facility] [address] [place] [address] [place].plasma/[place] .RBC (Bld) [Mass ratio] 0-3 Normal 0-3 [facility] Comment on above: Performed By: #### 2 [id number], [id number] #### [facility] [address] [place] [address] Nitrite Ql (U) Negative Normal Negative [facility] Comment on above: Performed By: #### 2 [id number], [id number] #### [facility] [address] [place] [address] pH (U) 6.5 [pH] 5.0-9.0 [facility] Comment on above: Performed By: #### 2 [id number], [id number] #### [facility] [address] [place] [address] Protein (U) [Mass/Vol] Negative Normal Negative [facility] Comment on above: Performed By: #### 2 [id number], [id number] #### [facility] [address] [place] [address] Specific gravity (U) [Rel density] 1.010 1.005-1.03 0 [facility] Comment on above: Performed By: #### 2 [id number], [id number] #### [facility] [address] [place] [address] UA Spec Desc Clean Catch Normal [facility] Comment on above: Performed By: #### 2 [id number], [id number] #### [facility] [address] [place] [address] Urobilinogen Qn (U) 0.2 {Pamela'U}/dL Normal 0.0-1.0 [facility] Comment on above: Performed By: #### 2 [id number], [id number] #### [facility] [address] [place] [address] WBC Auto Ql (U) Negative Normal Negative [facility] Comment on above: Performed By: #### 2 [id number], [id number] #### [facility] [address] [place] [address] WBC LM.HPF (Urine sed) [#/Area] 0-5 Normal 0-5 [facility] Comment on above: Performed By: #### 2 [id number], [id number] #### [facility] [address] [place] [address] Auto Diffon 12-12-2017 Basophils Auto #/vol (Bld) 0.1 E3/mcL Normal 0.0-0.2 [facility] Comment on above: Order Comment: Order Added by Discern Expert. Performed By: #### 2 [id number] ####[address] [place] [address] Basophils/100 WBC Auto (Bld) 0.9 % Normal 0.0-2.0 [facility] Comment on above: Order Comment: Order Added by Discern Expert. Performed By: #### 2 [id number] ####[address]EN [address] [place] [address] Eos Absolute 0.0 E3/mcL Normal 0.0-0.7 [facility] Comment on above: Order Comment: Order Added by Discern Expert. Performed By: #### 2 [id number] ####[address] [place] [address] Eosinophils/100 leukocytes 0.4 % Normal 0.0-11.0 [facility] Comment on above: Order Comment: Order Added by Discern Expert. Performed By: #### 2 [id number] ####[address] [place] [address] Lymphocytes 1.4 E3/mcL Normal 1.2-3.4 [facility] Comment on above: Order Comment: Order Added by Discern Expert. Performed By: #### 2 [id number] ####[address] [place] [address] Lymphocytes/100 leukocytes 16.6 % Low 20.0-55.0 [facility] Comment on above: Order Comment: Order Added by Discern Expert. Performed By: #### 2 [id number] ####[address] [place] [address] [place] Absolute 0.5 E3/mcL Normal 0.0-0.7 [facility] Comment on above: Order Comment: Order Added by Discern Expert. Performed By: #### 2 [id number] ####[address] [place] [address] Monocytes/100 leukocytes 5.5 % Normal 0.0-10.0 [facility] Comment on above: Order Comment: Order Added by Discern Expert. Performed By: #### 2 [id number] ####[address] [place] [address] Neutro Absolute 6.7 E3/mcL High 1.4-6.5 [facility] Comment on above: Order Comment: Order Added by Discern Expert. Performed By: #### 2 [id number] ####[address] [place] [address] Neutro Auto 76.6 % High 37.0-75.0 [facility] Comment on above: Order Comment: Order Added by Discern Expert. Performed By: #### 2 [id number] ####[address] [place] [address] CBC w/ Auto Diffon 8 Erythrocyte distribution width Auto Ratio (RBC) 15.0 % High 11.5-14.5 [facility] Comment on above: Performed By: #### 2 [id number] ####[address] [place] [address] Erythrocytes (RBC) 4.94 E6/mcL Normal 3.90-5.40 [facility] Comment on above: Performed By: #### 2 [id number] ####[address] [place] [address] Hematocrit (HCT) 40.0 % Normal 36.0-48.0 [facility] Comment on above: Performed By: #### 2 [id number] ####[address] [place] [address] Hemoglobin mass conc (Bld) 13.0 g/dL Normal 12.0-16.0 [facility] Comment on above: Performed By: #### 2 696973 ####KADEN WktYtsf0837 [place] [address] MCH 26.2 pg Low 27.0-31.0 [facility] Comment on above: Performed By: #### 2 697634 ####KADEN HgjUjav4618 [place] [address] MCHC mass conc (RBC) 32.4 g/dL Low 33.0-37.0 [facility] Comment on above: Performed By: #### 2 268906 ####KADEN KroKmgx9009 [place] [address] MCV 81.0 fL Normal 78.0-100.0 [facility] Comment on above: Performed By: #### 2 911220 ####KADEN YzhNraj24[address] [place] [id number] Platelet mean volume (PMV) 7.5 fL Normal 7.4-11.0 [facility] Comment on above: Performed By: #### 2 965883 ####KADEN NzdYaps6806 [place] [id number] Platelets 347 E3/mcL Normal 130-400 [facility] Comment on above: Performed By: #### 2 633622 ####KADEN BairdGzzPoui9610 [place] [address]67[address] WBC (Leukocytes) 8.7 E3/mcL Normal 3.6-11.0 [facility] Comment on above: Performed By: #### 2 248639 ####KADEN BairdRnuUeev7450 [place] [id number] CMPon 12-12-2017 Alanine aminotransferase (ALT) 14 Int._Unit/L Normal 10-40 [facility] Comment on above: Performed By: #### 2 599847 ####KADEN Luc[address] [place] [address] Albumin 3.8 g/dL Normal 3.2-5.0 [facility] Comment on above: Performed By: #### 2 114693 ####KADEN [address] [place] [address] Albumin/Globulin Ratio 1.0 {ratio} Low 1.1-1.9 S [facility] Comment on above: Performed By: #### 2 349463 ####KADEN [address] [place] [address] Alk Phos 75 Int._Unit/L Normal 42-121 [facility] Comment on above: Performed By: #### 2 029912 ####KADEN [address] [place] [address] Aspartate aminotransferase (AST) 18 Int._Unit/L Normal 10-42 [facility] Comment on above: Performed By: #### 2 320210 ####KADEN [address] [place] [address] Bili Total 1.0 mg/dL Normal 0.2-1.0 [facility] Comment on above: Performed By: #### 2 011649 ####KADEN [address] [place] [address] BUN/Creatinine Ratio 12.5 ratio Normal 5.4-30.0 [facility] Comment on above: Performed By: #### 2 202236 ####KADEN [address] [place] [address] Creatinine 0.8 mg/dL Normal 0.6-1.3 [facility] Comment on above: Performed By: #### 2 962181 ####KADEN [address] [place] [address] Globulin 3.8 g/dL Normal 2.0-4.0 [facility] Comment on above: Performed By: #### 2 667160 ####KADEN [address] [place] [address] Protein 7.6 g/dL Normal 6.4-8.3 [facility] Comment on above: Performed By: #### 2 080219 ####KADEN [address] [place] [address] Urea nitrogen 10 mg/dL Normal 7-18 [facility] Comment on above: Performed By: #### 2 249351 ####KADEN [address] [place] [address] Calcium 9.3 mg/dL Normal 8.4-10.2 [facility] Comment on above: Performed By: #### 2 695200 ####KADEN [address] [place] [address] Chloride 105 mmol/L Normal 98-107 [facility] Comment on above: Performed By: #### 2 928078 ####KADEN [address] [place] [address] CO2 25.1 mmol/L Normal 24.0-30.0 [facility] Comment on above: Performed By: #### 2 316052 ####KADEN [address] [place] [address] Glucose mass conc 101 mg/dL High 70-99 [facility] Comment on above: Performed By: #### 2 789275 ####KADEN [address] [place] [address] Potassium molar conc 3.4 mmol/L Low 3.5-5.1 [facility] Comment on above: Performed By: #### 2 198354 ####KADEN [address] [place] [address] Sodium 140 mmol/L Normal 136-145 [facility] Comment on above: Performed By: #### 2 911768 ####KADEN [address] [place] [address] Lipase Levelon 12-12-2017 Lipase Lvl 30 U/L Normal 8-57 [facility] Comment on above: Performed By: #### 2 457529 ####KADEN [address] [place] [address] UA Completeon 12-12-2017 UA Blood 3+ Normal Negative [facility] Comment on above: Performed By: #### 2 569347 ####KADEN [address] [place] [address] UA Bacteria Trace Abnormal None [facility] Comment on above: Performed By: #### 2 312380 ####KADEN IexTwav9313 [place] [address] UA Clarity SltCloudy Abnormal Clear [facility] Comment on above: Performed By: #### 2 302632 ####KADEN XhnNfwv2349 [place] [address] UA Hyal Cast 0-2 Normal 0-2 [facility] Comment on above: Performed By: #### 2 228737 ####KADEN EivEflh6271 [place] [address] UA Leuk Est 3+ Abnormal Negative [facility] Comment on above: Performed By: #### 2 451339 ####KADEN ZzdMwqh9511 [place] [address] UA Mucous Many Abnormal Trace [facility] Comment on above: Performed By: #### 2 262987 ####KADEN KvuCnas3613 [place] [address] UA Nitrite Negative Normal Negative [facility] Comment on above: Performed By: #### 2 275144 ####KADEN VvgXuon3618 [place] [address] UA pH 5.0 Normal 4.6-8.0 [facility] Comment on above: Performed By: #### 2 021739 ####KADEN GcrCnsc5885 [place] [address] UA Protein 1+ Abnormal Negative [facility] Comment on above: Performed By: #### 2 769067 ####KADEN IowJsrj6934 [place] [address] UA Spec Grav 1.026 Normal 1.003-1.03 0 [facility] Comment on above: Performed By: #### 2 088984 ####KADEN TppLqrb[address] [place] [address] UA Squam Epithelial 0-5 Normal 0-5 [facility] Comment on above: Performed By: #### 2 948928 ####KADENMorelia BairdHceSlpa3582 [place] [address] UA Urobilinogen 2.0 mg/dL Abnormal [facility] Comment on above: Performed By: #### 2 420451 ####KADEN BairdBueLpvu6977 [place] [address] UA WBC >50 Abnormal 0-5 [facility] Comment on above: Performed By: #### 2 663494 ####KADEN BairdYzfArhv8246 [place] [address] Urine, color Yellow Normal Yellow [facility] Comment on above: Performed By: #### 2 100797 ####KADEN BairdIpkClqp2749 [place] [address] Urine, erythrocytes 20-50 Abnormal 0-3 [facility] Comment on above: Performed By: #### 2 557557 ####KADEN [address] [place] [address] Urine, glucose Negative Normal Negative [facility] Comment on above: Performed By: #### 2 496758 ####KADEN [address] [place] [address] Urine, ketones presence Trace Normal [facility] Comment on above: Performed By: #### 2 477103 ####KADEN BairdJnkDtjx5116 [place] [address] Urine, urobilinogen Negative Normal Negative [facility] Comment on above: Performed By: #### 2 290848 ####KADEN BairdGplDjnb6264 [place] [address] eGFRon 12-12-2017 eGFR AA >60 Normal [facility] Comment on above: Order Comment: Order Added by Discern Expert. Performed By: #### 2 477120 ####KADEN BairdIsjLkqd9692 [place] [address] eGFR (non-black) mL/min/{1.73_m2} Normal [facility] Comment on above: Order Comment: Order Added by Discern Expert. Performed By: #### 2 141847 ####KADEN BairdEjaCnpb9073 [place] [address] HISTORY PHYSICALon 8 HISTORY PHYSICAL HNO ID: [id number] thor: Clara ChaoeService: Maternal MedicineAuthor Type: PhysicianType: HANDPFiled: 12/02/2017 9:04 AMNote Text:[facility] DOCUMENTDISCHARGE SUMMARYPatient Name: Zuleika Gtz Date: 11/30/2017 [...] in 4 weeks with provider.DO Debo Vanegas [facility] PROGRESSon 12-02-2017 PROGRESS HNO ID: [id number] thor: Marie Lema (Res) LendeService: ObstetricsAuthor Type: [...] to home. Has appt with medical genetics01/15/18.Signature: CHRISTOFRE Vanegasate: 12/02/2017Time: 8:43 AMI spent 32 minutes in the visit, with more than 50% of the total kzzw-og-liduvwnl of the visit in counseling / coordination [...] decreasing.Ambulating without difficulty.OBJECTIVE:PHYSI GEN EXAM:Heart: RR, S1, P8Bmvkk: clear to auscultationAbdomen: Soft Bowel sounds present [...] December 02, 2017 : 5:45 AM Normal [facility] SOCIAL WORKon 12-02-2017 SOCIAL WORK HNO ID: [id number] thor: Meredith Fracne (Sw): Social WorkAuthor Type: Social WorkerType: Social WorkFiled: 12/02/2017 12:25 PMNote Text:SOCIAL WORK CONSULT NOTESERVICE DATE: 12/02/2017SERVICE TIME: 1015Referred by: Jose for visit:Maternal/Infant - adjustment to conditionLiving Arrangement: HomeLives With: PartnerFinancial Resources: DisabledPrimary Contact:Extended Emergency Contact Information [facility]ARRELL BRANCH [facility] Emergency Contact: No,ContactRelation: OtherSupportive: YesOther Important Patient [...] hospital. (FOBparents are Anamika Munoz of [address] [facility]).Per pt and FOB, all needed baby supplies and equipment are at the [facility] and a nursery has been set up.Per pt, name of baby girl is Martha Branch.Pt states she is on SSI and WIC.Pt shares that she is in ongoing counseling at [facility] in [place] and has appointments 2 x per month.Discussed with pt and FOB signs and sx of depression; safe babysleep and discussed ways to deal with crying infant. Pt again states sheis going to rely on her support system.No additional issues identified at this time. Encouraged pt and FOB toutilize services through [facility]. Providedcontact information.Outcome/Recomm endations:Assistance through [facility] spent (minutes): 60SIGNATURE: CARLA Goncalves PATIENT NAME: Zuleika Hernandez: December 02, 2017 : 11:10 AM PAGER/CONTACT#: [facility] JERZYS INTRAOPotunde 12-01-2017 ANES INTRAOP HNO ID: [id number] thor: Terrance Lockhartervice: AnesthesiologyAuthor Type: Nurse AnesthetistType: Anesthesia IntraOpFiled: 12/01/2017 9:41 AMNote Text:ANALGESIA PROGRESS RECORDCATHETER REMOVAL/END OF CASESERVICE DATE: 12/01/2017REMOVAL DATE AND TIME: 11/30/2017, ELIVERY DATE AND TIME: 11/30/2017 at 5:49 PMCATHETER REMOVAL:Catheter Removal: See [facility]Mik[facility] Nursing noteSIGNATURE: Terrance Contreras APRN.CRNA PATIENT NAME: Zuleika Hernandez: December 01, 2017 : 9:40 AM PAGER/CONTACT #: [facility] ANES Keke 12-01-2017 ANES POST HNO ID: [id number] thor: Terrance MagañaTop Spotter) JohanngService: AnesthesiologyAuthor Type: Nurse AnesthetistType: Anesthesia PostOpFiled: [...] by Anesthesia Service: NoneOther Remarks:SIGNATURE: Terrance Contreras APRN.STRAP SETTER PATIENT NAME: Zuleika LambATE: December 01, 2017 : 9:42 AM PAGER/CONTACT #: [facility] PROGRESSon 12-01-2017 PROGRESS HNO ID: [id number] thor: Marie Lema (Res) LendeService: ObstetricsAuthor Type: [...] decreasing.Ambulating without difficulty.OBJECTIVE:PHYSI GEN EXAM:Heart: RR, S1, D1Tzqve: clear to auscultationAbdomen: Soft Bowel sounds present [...] December 01, 2017 : 6:40 AM Normal [facility] ABO/Rh Confirmationon 2017 ABO group Nom (Bld) A Normal [facility] Comment on above: Performed By: #### A JESSIE #### [place] [address] RH Type Positive Normal [facility] Comment on above: Performed By: #### A JESSIE #### [place] [address] ANES PREOPon 11-30-2017 ANES PREOP HNO ID: [id number] thor: Aaron (Chiara) EarleyService: AnesthesiologyAuthor Type: Nurse [...] of Sleep Apnea: DeniesHematocritDate Value Ref Range Akxucf4111/30/2017 32.3 (L) 34.1 - 44.9 % Final Platelet CountDate Value Ref Range Yekrqk7111/30/2017 193 182 - 369 thou/cmm Final Vitals: [...] as needed. Disp: Rfl:Inpatient medications reviewed in [facility].I have interviewed and examined the patient. I have reviewed the medicalrecord , pertinent consults and/or the pre-anesthesia evaluation,pertinent labs, and test results.Significant changes in the patient's condition since the History andPhysical, not otherwise documented in primary service progress notes: NoTheartland lasik center contains updated information obtained within 48 hours ofSurgery/Procedure.SIGNAT URE: Hema Cuellar APRN.STRAP SETTER PATIENT NAME: Zuleika LambATE: November 30, 2017 : 12:13 PM : 1990 Normal [facility] Auto Diffon 11-30-2017 Basophils Auto #/vol (Bld) 0.1 E3/mcL Normal 0.0-0.2 [facility] Comment on above: Order Comment: Order Added by Discern Expert. Performed By: #### 2 365600 ####KADEN BairdKnnNeym4135 [place] [address] Basophils/100 WBC Auto (Bld) 0.9 % Normal 0.0-2.0 [facility] Comment on above: Order Comment: Order Added by Discern Expert. Performed By: #### 2 204548 ####KADEN [address] [place] [address] Eos Absolute 0.1 E3/mcL Normal 0.0-0.7 [facility] Comment on above: Order Comment: Order Added by Discern Expert. Performed By: #### 2 241031 ####KADEN [address] [place] [address] Eosinophils/100 leukocytes 1.0 % Normal 0.0-11.0 [facility] Comment on above: Order Comment: Order Added by Discern Expert. Performed By: #### 2 297323 ####KADEN [address] [place] [address] Lymphocytes 2.0 E3/mcL Normal 1.2-3.4 [facility] Comment on above: Order Comment: Order Added by Discern Expert. Performed By: #### 2 536958 ####KADEN BairdNbgCiny9071 [place] [address] Lymphocytes/100 leukocytes 22.1 % Normal 20.0-55.0 [facility] Comment on above: Order Comment: Order Added by Discern Expert. Performed By: #### 2 978232 ####KADEN BairdMvqUayf3746 [place] [address] Preble Absolute 0.7 E3/mcL Normal 0.0-0.7 [facility] Comment on above: Order Comment: Order Added by Discern Expert. Performed By: #### 2 021226 ####KADEN [address] [place] [address] Monocytes/100 leukocytes 7.5 % Normal 0.0-10.0 [facility] Comment on above: Order Comment: Order Added by Discern Expert. Performed By: #### 2 859947 ####KADEN [address] [place] [address] Neutro Absolute 6.1 E3/mcL Normal 1.4-6.5 [facility] Comment on above: Order Comment: Order Added by Discern Expert. Performed By: #### 2 477477 ####KADEN [address] [place] [address] Neutro Auto 68.5 % Normal 37.0-75.0 [facility] Comment on above: Order Comment: Order Added by Discern Expert. Performed By: #### 2 932229 ####KADEN [address] [place] [address] CBC w/ Auto Diffon 8 Erythrocyte distribution width Auto Ratio (RBC) 14.3 % Normal 11.5-14.5 [facility] Comment on above: Performed By: #### 2 973521 ####KADEN [address] [place] [address] Erythrocytes (RBC) 4.34 E6/mcL Normal 3.90-5.40 [facility] Comment on above: Performed By: #### 2 192520 ####KADEN [address] [place] [address] Hematocrit (HCT) 35.1 % Low 36.0-48.0 [facility] Comment on above: Performed By: #### 2 137698 ####KADEN [address] [place] [address] Hemoglobin mass conc (Bld) 11.6 g/dL Low 12.0-16.0 [facility] Comment on above: Performed By: #### 2 529209 ####KADEN BairdJurMxkh4201 [place] [address] MCH 26.6 pg Low 27.0-31.0 [facility] Comment on above: Performed By: #### 2 641351 ####KADENMorelia LuceroGbcVmsl5056 [place] [address] MCHC mass conc (RBC) 32.9 g/dL Low 33.0-37.0 [facility] Comment on above: Performed By: #### 2 406788 ####KADEN [address] [place] [address] MCV 80.9 fL Normal 78.0-100.0 [facility] Comment on above: Performed By: #### 2 604708 ####KADEN [address] [place] [address] Platelet mean volume (PMV) 7.6 fL Normal 7.4-11.0 [facility] Comment on above: Performed By: #### 2 054940 ####KADEN [address] [place] [address] Platelets 217 E3/mcL Normal 130-400 [facility] Comment on above: Performed By: #### 2 902289 ####KADEN [address] [place] [address] WBC (Leukocytes) 8.8 E3/mcL Normal 3.6-11.0 [facility] Comment on above: Performed By: #### 2 315596 ####KADEN BairdVkuMsfy6214 [place] [address] CONSULTon 11-30-2017 CONSULT HNO ID: [id number] thor: Marie Lema (Res) LendeService: ObstetricsAuthor Type: [...] options.Patient received written information about post-delivery contraceptionoptions.[facility] HospitalISTORY REVIEWPAST MEDICAL HISTORYDiagnosis Date- Club foot- alcohol [...] T0 L0 SAB1 TAB0 Ectopic0 Multiple0 Live Ryxkqk5Lnhw of Baby 1: Not recorded Date: 2014 [...] pupils equal, no thyromegalyLungs: clearHeart: RR, S1, Y4Wkfdogs: soft, nontender, no massesUterus: soft, NTExtremities: 1+ [...] Epi prn4. [place]5. [place] [address]. anomalies- prominent cisterna magna, bilateral periventrcularnodular heterotopia, [...] as . H/o tobacco abuseSigned out to [facility] for deliveryDr. Amado reviewed with Dr. MaldonadoSIGNATURE: Marie Hassan DO PATIENT NAME: Zuleika LambATE: November 30, 2017 : 6:49 AM PAGER/CONTACT #: [phone] Normal [facility] HISTORY PHYSICALon 8 HISTORY PHYSICAL HNO ID: [id number] thor: Marie Lema (Res) JabiereService: ObstetricsAuthor Type: [...] T0 L0 SAB1 TAB0 Ectopic0 Multiple0 Live Dlfitv5Ywzi of Baby 1: Not recorded Date: 2014 [...] pupils equal, no thyromegalyLungs: clearHeart: RR, S1, K9Snpaxxe: soft, nontender, no massesUterus: soft, NTExtremities: 1+ [...] Epi prn4. FB soon5. [place] [address]. anomalies- prominent cisterna magna, bilateral periventrcularnodular heterotopia, [...] EF 55%.10. H/o maternal clubfoot-s/p repair as ugthsw23. H/o tobacco abuseSigned out to [facility] for deliveryD/w Dr. AmadoSIGNATURE: Marie Hassan DO PATIENT NAME: Zuleika LambATE: November 30, 2017 : 6:49 AM PAGER/CONTACT #: [phone] Normal [facility] Hemogramon 11-30-2017 Erythrocyte distribution width Ratio (RBC) 13.6 % Normal 11.7-14.4 [facility] Comment on above: Performed By: #### C BC1 #### [facility] [address] [place], [place] [address] Hematocrit Volume Fraction (Bld) 32.3 % Low 34.1-44.9 [facility] Comment on above: Performed By: #### C BC1 #### [facility] [address] [place] [address] Hemoglobin mass conc (Bld) 10.4 g/dL Low 11.2-15.7 [facility] Comment on above: Performed By: #### C BC1 #### [facility] [address] [place] [address] MCH Entitic mass (RBC) 26.4 pg Normal 25.6-32.2 [facility] Comment on above: Performed By: #### C BC1 #### [facility] [address] [place] [address] MCHC mass conc (RBC) 32.2 % Normal 31.6-34.8 [facility] Comment on above: Performed By: #### C BC1 #### [facility] [address] [place] [address] MCV Entitic volume (RBC) 82.0 fL Normal 79.4-94.8 [facility] Comment on above: Performed By: #### C BC1 #### [facility] [address] [place] [address] Platelet mean volume Entitic volume (Bld) 9.9 fL Normal 9.4-12.3 [facility] Comment on above: Performed By: #### C BC1 #### [facility] [address] [place] [address] Platelets #/vol (Bld) 193 thou/cmm Normal 182-369 [facility] Comment on above: Performed By: #### C BC1 #### [facility] [address] [place] [address] RBC #/vol (Bld) 3.94 mil/cmm Normal 3.93-5.22 [facility] Comment on above: Performed By: #### C BC1 #### [facility] [address] [place] [address] RDW SD 40.6 fl Normal 36.4-46.3 [facility] Comment on above: Performed By: #### C BC1 #### [place] [address] WBC #/vol (Bld) 9.85 thou/cmm Normal 3.98-10.04 [facility] Comment on above: Performed By: #### C BC1 #### [facility] [address] [place] [address] LD NOTEon 11-30-2017 LD NOTE HNO ID: [id number] thor: Marie Lema (Res) LendeService: ObstetricsAuthor Type: ResidentType: LANDD Delivery NoteFiled: 11/30/2017 6:19 PMNote Text: -------Attestation signed by Serenity Maldonado MD at 12/01/2017 6:04 PMI saw and evaluated the patient. I reviewed the resident's note and agree,except that patient seen by [facility] (patient has FAS, fetus with multipleanomlaies) service, consult placed to [facility] for management of labor AND delivery.Essential primip presented at 39w with PROM, had Pugh balloon AND Pitocin foraugmentaion. Late in labor noted tachycardia that improved with IVFB ANDTylenol (mother rico had elevated temp but felt warm). [facility] team for evaluation (was allowed tohave delivery to abdomen AND 30 sec delay for cord clamping). Pushed well AND hadSVD of a viable female infant (APGARS 8,9, weight of 3200g/7#1oz) over intactperineum. Uterus slightly boggy after delivery, responded to massage AND Pitocininfusion, EBL ~500cc.Serenity Maldonado MD ----OBSTETRICSDELIVERY SUMMARY - VAGINAL DELIVERYGestational Age at Delivery: 82a5yFzpulrb Date: 11/30/2017Service Time: 1800Keegan, Bg Zuleika Dillard [[id number]]Labor EventsRupture Date: 11/30/17Rupture Time: 224Rupture Type: PROMFluid [...] November 30, 2017 : 6:15 PM Normal [facility] NURSING PROGon 11-30-2017 NURSING PROG HNO ID: [id number] thor: Marguerite (Rn) ANEUDY Albarranervice: (none)Author Type: Registered NurseType: Nursing Progress NoteFiled: 11/30/2017 7:06 PMNote Text: INTRODUCED SELF TO PATIENT AND SUPPORT PERSONS. PLAN OF CARE DISCUSSED.ASSESSMENT PERFORMED. PATIENT DENIES COMPLAINTS. Normal [facility] NURSING PROG HNO ID: [id number] thor: Darcie (Rn) ANEUDY Landeroservice: NursingAuthor Type: Registered NurseType: Nursing Progress NoteFiled: 11/30/2017 10:03 AMNote Text:Patient up to shower for comfort. Boyfriend at side. On telemetrymonitors. RN remains in room. FHR difficult to maintain continuoustracing Normal [facility] NURSING PROG HNO ID: [id number] Author: Noarh (Rn) KARRI Eastman Service: Nursing Author Type: Registered Nurse Type: Nursing Progress Note Filed: 11/30/2017 7:18 AM Note Text: Report given to Darcie DURAN and care transferred at this time. Normal [facility] PROCEDUREon 11-30-2017 PROCEDURE HNO ID: [id number] thor: Aaron (Top Spotter) EarleyService: AnesthesiologyAuthor Type: Nurse AnesthetistType: ProceduresFiled: 11/30/2017 [...] Catheter in Epidural Space: 5 cmInterspace: approximately L2-M4Iuobgc of Attempts: 1Wet Tap Complication: NoDural Puncture [...] nurses' documentation for additional vitals.SIGNATURE: Hema Cuellar APRN.STRAP SETTER PATIENT NAME: Zuleika LambATE: November 30, 2017 : 12:27 PM PAGER/CONTACT #: [facility] PROGRESSon 11-30-2017 PROGRESS HNO ID: [id number] thor: Marie Lema (Res) LendeService: ObstetricsAuthor Type: ResidentType: Progress NotesFiled: 11/30/2017 5:04 PMNote Text:UpdatePatient is pushing in the OR. Cat I FHRT with baseline around 160s. updated and in house.Franki Neri 2017 5:04 PM [facility] PROGRESS HNO ID: [id number] Author: Darcie (Rn) KARRI Landeros Service: Nursing Author Type: Registered Nurse Type: Progress Notes Filed: 11/30/2017 3:29 PM Note Text: Patient feeling pressure, cervical exam 9.5 cm. NICU notified. Patient feels warm, but temp 36.9. [facility] PROGRESS HNO ID: [id number] thor: Marie Lema (Res) JabiereService: ObstetricsAuthor Type: [...] pt comfortable4. s/p FB5. s/[place] [address]. anomalies- prominent cisterna magna, bilateral periventrcularnodular heterotopia, [...] EF 55%.10. H/o maternal clubfoot-s/p repair as tqrync48. H/o tobacco abuse12. Cat II- Isolate late decelerations. Moderate variability. Continuingto make cervical change. Not on Cat II protocol.SIGNATURE: Marie Hassan DO PATIENT NAME: Zuleika LambATE: November 30, 2017 : 1:35 PM PAGER/CONTACT #: [phone] [facility] PROGRESS HNO ID: [id number] thor: Yolanda Shannon) Suzyervice: ObstetricsAuthor Type: ResidentType: [...] pt comfortable4. s/p FB5. s/[place] [address]. anomalies- prominent cisterna magna, bilateral periventrcularnodular heterotopia, [...] EF 55%.10. H/o maternal clubfoot-s/p repair as hgxyol37. H/o tobacco abuseSIGNATURE: Yolanda Barbosa DO PATIENT NAME: Zuleika LambATE: November 30, 2017 : 1:11 PM PAGER/CONTACT #: [phone] Normal [facility] PROGRESS HNO ID: [id number] thor: Yolanda (Joaquín) Suzyervice: ObstetricsAuthor Type: ResidentType: [...] Pit per protocol3. [place] [address]. [place] [address]. anomalies- prominent cisterna magna, bilateral periventrcularnodular heterotopia, [...] EF 55%.10. H/o maternal clubfoot-s/p repair as dnaxja89. H/o tobacco abuseSIGNATURE: Yolanda Barbosa DO PATIENT NAME: Zuleika BecerirlnDATE: November 30, 2017 : 11:05 AM PAGER/CONTACT #: [phone] Normal [facility] PROGRESS HNO ID: [id number] Author: Darcie MagañaRn) KARRI Landeros Service: Nursing Author Type: Registered Nurse Type: Progress Notes Filed: 11/30/2017 10:35 AM Note Text: Unable to find labwork for chart. [facility] PROGRESS HNO ID: [id number] thor: Marie Lema (Res) JabiereService: ObstetricsAuthor Type: [...] Status: Premature (11/30/17 0853 : Darcie Washington) TigerRN)Rupture Date: 11/30/17 (11/30/17 0853 : Darcie [place]) [...] Pit per protocol3[place] [address]. [place] [address]. anomalies- prominent cisterna magna, bilateral periventrcularnodular heterotopia, [...] 30, 2017 : 10:31 AM PAGER/CONTACT #: [phone] [facility] PROGRESS HNO ID: [id number] thor: Darcie [place]) ANEUDY Landeroservice: NursingAuthor Type: Registered NurseType: Progress NotesFiled: 11/30/2017 10:13 AMNote Text:Patient remains in shower. RN and boyfriend at side. EFM on telemetryand adjusted while patient in shower. Difficult to keep baby on. Normal [facility] PROGRESS HNO ID: [id number] thor: Yolanda (Res) SnyderService: ObstetricsAuthor Type: ResidentType: Progress NotesFiled: 11/30/2017 7:35 AMNote Text:In to place FB. Pt tolerated procedure well. Continues to leak clearfluid. Pt uncomfortable with contractions.Cat I FHT, reactive with accelsToco: 2-5 minsHeather Romina, PGY-1Obstetrics and GynecologyPager [phone]/7:34 AM Normal [facility] Type and Screenon 11-30-2017 ABO group Nom (Bld) A Normal [facility] Comment on above: Performed By: #### T &S #### [place] [address] Comment See Below [facility] Comment on above: Result Comment: Scre en &/or Xmatch expires in 3 days at 12 midnight. Redraw patient at that time. Performed By: #### T &S #### [place] [address] RH Type Positive Normal [facility] Comment on above: Performed By: #### T &S #### [place] [address] Progress Noteon 11-28-2017 Spool Cleaner Hand Authentication Interface Message Text Routine VisitSubjective: Zuleika Villalta is being seen today for her obstetrical visit. She is at 27w7nxgetxuynq. Patient reports no complaints. Movement: normal. She [...] Serial growth ultrasounds every 4 weeks.DELIVERY PLANHospital: [facility] HospitalInduction at 39 weeks; CYTOTEC IOL 18 at 5 pm at [facility]. Pre-Procedure formdone (CG)GBS culture: neg 11/07/17Contraception: Considering [...] was spent counseling and coordinating care. Normal [facility] Progress Noteon 11-22-2017 Spool Cleaner Hand Authentication Interface Message Text FTC plan of care faxed to [facility] in event pt would arrive for urgent management. Normal [facility] Progress Noteon 11-21-2017 Spool Cleaner Hand Authentication Interface Message Text Routine VisitSubjective: Zuleika Villalta is being seen today for her obstetrical visit. She is at 95o7djrubumldd. Patient reports that she went to [facility] last night due toconcerns for labor. She [...] Serial growth ultrasounds every 4 weeks.DELIVERY PLANHospital: [facility] HospitalInduction at 39 weeks; CYTOTEC IOL 618-18 at 5 pm at [facility]. Pre-Procedure formdone (CG)GBS culture: neg 11/07/17Contraception: Considering [...] scheduled for IOL on12/02/17.Oksana amado MD Normal [facility] Progress Noteon 11-12-2017 Spool Cleaner Hand Authentication Interface Message Text Call from [facility] that pt presented there in labor. [facility] plan of care and ACOGs faxed by Toan Chen. Provided after hours MFM number provided. Normal [facility] Group B Strep Cultureon 10-16 Group B Strep Culture Group B Strep Cult ure: No Group B Streptococci isolated. Source: VAG Collected: 11/07/17 09:00 Site: Vaginal/Rectal Received : 11/07/17 22:01Group B Strep Culture FINAL 11/10/17 08:34 No Group B Streptococci isolated. Normal [facility] Comment on above: Performed By: #### [facility] ####[address] [phone] Progress Noteon 11-07-2017 Spool Cleaner Hand Authentication Interface Message Text Routine VisitSubjective: Zuleika Villalta is being seen today for her obstetrical visit. She is at 25q2watfkmzulh. Patient reports occasional nausea. No emesis. She [...] Serial growth ultrasounds every 4 weeks.DELIVERY PLANHospital: [facility] HospitalInduction at 39 weeksGBS culture: collected and [...] OB visit and BPP.Oksana Amado MD Normal [facility] Progress Noteon 10-24-2017 Spool Cleaner Hand Authentication Interface Message Text Routine VisitSubjective: Zuleika [...] Serial growth ultrasounds every 4 weeks.DELIVERY PLANHospital: [facility] HospitalInduction at 39 weeksGBS culture:Contraception: Considering LARC [...] and coordinating care.Marco Antonio Bravo DO Normal [facility] Progress Noteon 10-15-2017 Spool Cleaner Hand Authentication Interface Message Text Ped selection made. Updated prenatals Normal [facility] Progress Noteon 10-08-2017 Spool Cleaner Hand Authentication Interface Message Text Thank you for [...] size. There was a patent foramen ovale, fnrtsueoq-jr-brsu shunt.Tricuspid valve:Normal tricuspid valve. There was normal [...] fetuses and in fetuses with CHD and waywuafzenbgj71q19, the ratio being below 0.3 )Impression and recommendations.1) Abnormal 3-vessel view, ascending aorta was moderately dilated. 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 thymic thoracic ratio (TT-ratio)=0.1 ( TT-ratio 0.44 in normal fetuses and in fetuses with CHD and kwovhunjzgxzo22v28, the ratio being below 0.3 )5) Normal [...] earlier ifcardiac condition/status changes in any way. [place] follow up and treatmentshould be determined on the basis of the findings on the initial echocardiogram.Counseling and/or coordination of care was greater than 35 minutes which is moreysabel 50% of the total time of 60 minutes spent on the encounter. Normal [facility] Spool Cleaner Hand Authentication Interface Message Text Initial VisitSubjective: Zuleika [...] Serial growth ultrasounds every 4 weeks.DELIVERY PLANHospital: [facility] HospitalInduction at 39 weeksGBS culture:Contraception:TDAP recommended Constipation [...] weeks for OB visit and BPP in [place].Oksana Amado MD Normal [facility] Cytogenomic Microarray Nivia sis of Bloodon 09-10-2017 Cytogenomic Microarray Analysis of Blood SEE BELOW Normal [facility] Comment on above: Result Comment: SPEC IMEN: BLOODCLINICAL INFORMATION: Learning disability[F81.9]TEST: CYTOGENOMIC MICROARRAY ANALYSISRESULT SUMMARY:Normal femaleNOMENCLATURE:arr(1-22,X)p5RFTGSGLLAVOOEP & COMMENTS:The cytogenomics microarray analysis indicated no [...] whole genome microarray analysis was performed the FDA-clearedPhizzle(R) Dx platform, which contains approximately 2.7million markers, including 1,953,246 unique non-polymorphic copy numberprobes and 743,304 single nucleotide polymorphism (SNP) probes. Thegenome-wide functional resolution of this assay is approximately 25 kbfor deletions and 50 kb for duplications. This microarray andassociated software (Chromosome Analysis Suite Dx) were manufactured bySentrinsic and used by the Cytogenetics and Molecular DiagnosticsLaboratories of [facility] for the purpose ofidentifying DNA copy [...] further information regarding intendeduse and limitations, see [email or web address].Note: The Cytogenetics Laboratory has this patient's blood [...] for additional testing. 09/19/2017 BIGG GARCIA, PH.D., [facility] 09/19/2017 Performed By: #### Tommy CRY1 ####[facility] of [address] [place], [place] [phone] MRI (SINGLE)on 018 MRI (SINGLE) MRI (SINGLE)CL [...] Dr. AJ CAMILO at 09/10/2017 10:21 Normal [facility] Progress Noteon 09-10-2017 Spool Cleaner Hand Authentication Interface Message Text The total patient time of the visit was 15 minutes, of which greater than 50% of the time was spent counseling and coordinating care. Normal [facility] Auto Diffon 09-03-2017 Basophils Auto #/vol (Bld) 0.1 E3/mcL Normal 0.0-0.2 [facility] Comment on above: Order Comment: Order Added by Discern Expert. Performed By: #### 2 [id number] ####KADEN [address] [place] [address] Basophils/100 WBC Auto (Bld) 0.5 % Normal 0.0-2.0 [facility] Comment on above: Order Comment: Order Added by Discern Expert. Performed By: #### 2 511448 ####KADEN BairdJzdJmny[address]87 [place] [address] Eos Absolute 0.0 E3/mcL Normal 0.0-0.7 [facility] Comment on above: Order Comment: Order Added by Discern Expert. Performed By: #### 2 486227 ####KADEN B[address]OyjPsem7251 [place] [address] Eosinophils/100 leukocytes 0.4 % Normal 0.0-11.0 [facility] Comment on above: Order Comment: Order Added by Discern Expert. Performed By: #### 2 946181 ####KADEN B[address]TseHafl4242 [place] [address] Lymphocytes 1.3 E3/mcL Normal 1.2-3.4 [facility] Comment on above: Order Comment: Order Added by Discern Expert. Performed By: #### 2 181070 ####KADEN B[address]ScrJaqt9822 [place] [address] Lymphocytes/100 leukocytes 13.1 % Low 20.0-55.0 [facility] Comment on above: Order Comment: Order Added by Discern Expert. Performed By: #### 2 308865 ####KADEN BairdRvdDxbg6616 [place] [address] Preble Absolute 0.4 E3/mcL Normal 0.0-0.7 [facility] Comment on above: Order Comment: Order Added by Discern Expert. Performed By: #### 2 190383 ####KADEN BairdYkdIteh7810 [place] [address] Monocytes/100 leukocytes 4.3 % Normal 0.0-10.0 [facility] Comment on above: Order Comment: Order Added by Discern Expert. Performed By: #### 2 900175 ####KADEN B[address]XpeFowz0432 [place] [address] Neutro Absolute 8.4 E3/mcL High 1.4-6.5 [facility] Comment on above: Order Comment: Order Added by Discern Expert. Performed By: #### 2 799176 ####KADEN BairdZavPxnc8920 [place] [address] Neutro Auto 81.7 % High 37.0-75.0 [facility] Comment on above: Order Comment: Order Added by Discern Expert. Performed By: #### 2 015489 ####KADEN [address] [place] [address] CBC w/ Auto Diffon 8 Erythrocyte distribution width Auto Ratio (RBC) 13.1 % Normal 11.5-14.5 [facility] Comment on above: Performed By: #### 2 447640 ####KADEN [address] [place] [address] Erythrocytes (RBC) 3.90 E6/mcL Normal 3.90-5.40 [facility] Comment on above: Performed By: #### 2 641977 ####KADEN [address] [place] [address] Hematocrit (HCT) 34.7 % Low 36.0-48.0 [facility] Comment on above: Performed By: #### 2 231245 ####KADEN [address] [place] [address] Hemoglobin mass conc (Bld) 11.8 g/dL Low 12.0-16.0 [facility] Comment on above: Performed By: #### 2 284755 ####KADEN [address] [place] [address] MCH 30.3 pg Normal 27.0-31.0 [facility] Comment on above: Performed By: #### 2 460140 ####KADEN [address] [place] [address] MCHC mass conc (RBC) 34.2 g/dL Normal 33.0-37.0 [facility] Comment on above: Performed By: #### 2 822117 ####KADEN [address] [place] [address] MCV 88.8 fL Normal 78.0-100.0 [facility] Comment on above: Performed By: #### 2 206513 ####KADEN [address] [place] [id number] Platelet mean volume (PMV) 7.3 fL Low 7.4-11.0 [facility] Comment on above: Performed By: #### 2 785281 ####KADEN [address] [place] [address] Platelets 218 E3/mcL Normal 130-400 [facility] Comment on above: Performed By: #### 2 468292 ####KADEN [address] [place] [address] WBC (Leukocytes) 10.2 E3/mcL Normal 3.6-11.0 [facility] Comment on above: Performed By: #### 2 397464 ####KADEN [address] [place] [address] Gest Scr Glu 1 Hron 09-04-19 18 Glucose mass conc 113 mg/dL Normal 70-140 [facility] Comment on above: Performed By: #### 2 332276 ####KADEN [address] [place] [address] FISH Probeon 08-13-2017 Protein mass conc SEE BELOW Normal [facility] Comment on above: Result Comment: SPEC IMEN: BLOOD - [id number] INFORMATION:TEST: FISH Analysis of the DiGeorge/VCFS Region [...] Metaphase images: 2The Vysis LSI DARREN Spectrum [place] Probe contains the DARREN gene (3'non-coding region of TUPLE1, E19Y266, and N59P3402. The Vysis LSI ARSAspectrum Green Probe includes [...] performance characteristics determinedby the Cytogenetics Laboratory of [facility]. It hasnot been cleared or approved [...] J Med Barbara 66:250-256,1995. BIGG GARCIA, PH.D., [facility] 08/16/2017 Performed By: #### F MARIA ####[address] [phone] Progress Noteon 08-13-2017 Spool Cleaner Hand Authentication Interface Message Text Met with patient [...] understanding of findingsWork History: unemployed. Information on [facility] services given.Consent to share information with FTC team, OB and soaking pit operator signed. Pt plans to deliver in [place] with [facility]. Currently with Dr. Shekhar Dyson.Manager Media Relations is undecided. [facility] and discussed importance ofselection prior [...] was spent counseling and coordinating care. Normal [facility] Spool Cleaner Hand Authentication Interface Message Text Thank you for [...] size. There was a patent foramen ovale, blrinijjl-pv-jmbc shunt.Tricuspid valve:Normal tricuspid valve. There was normal [...] 60 minutes spent on the encounter. Normal [facility] Progress Noteon 07-18-2017 Spool Cleaner Hand Authentication Interface Message Text [facility]- MEDICINE CONSULTReferring/Requestin g Provider: VINI [...] no palpitations. She usually doesnot see a post anesthesia room nurse, but did have a recent echo due [...] as a child 07/18/2017 Consider evaluation with manager social responsibility to assess for any needs duringpregnancy or after. Will have genetic consult with [facility] evaluation. cardiac anomaly complicating , antepartum 07/18/2017 Dilated aortic root seen on ultrasound along with large umbilical cordvarix, dolichocephaly DW Dr. Zazueta, verbal order to refer to [facility] Will be scheduled with pediatric cardiology. Also, patient and family members have a history of learning disabilities,including an individual learning plan in school. She will talk to her familymembers and bring as much information as is available for her genetics consult.She has transportation to [place] and is [facility]The total patient time of the visit was 30 minutes, of which was greater than50% of the time was spent counseling and coordinating care. Normal [facility] IGP W/hpv Rfx [id number] 05-07 Diagnosis: See Ref Lab Report Normal [facility] Comment on above: Order Comment: Thin Prep. Performed By: #### 2 540111 ####KADEN BairdQhcBblb5184 [place] [address] C Urineon 05-03-2017 C Urine Final Report: Normal skin alonso isolated Normal [facility] Comment on above: Performed By: #### 2 154616 ####KADEN BairdRmtFogz0966 [place] [address] RPRon 05-03-2017 RPR Ql Non-Reactive Normal Non-Reacti ve [facility] Comment on above: Performed By: #### 2 843318 ####KADEN BairdRpfXndy4621 [place] [address] Hep Bs Agon 05-02-2017 BSA (Body Surface Area) Negative Normal Negative [facility] Comment on above: Result Comment: Perf ormed At: [facility] [address] [id number] Vincent PhD Ph:[phone] Performed By: #### 2 545995 ####KADEN IepBjeq6504 [place] [address] ABO/Rh Echoon 05-01-2017 ABO/Rh E Interp... Positive [facility] Comment on above: Performed By: #### 2 782307 ####KADEN BairdZwnNjpa9197 [place] [address] Antibody Screen Cap...on Screen Interp... Negative Normal [facility] Comment on above: Performed By: #### 2 968362 ####KADEN CwtRcju6041 [place] [address] Auto Diffon 05-01-2017 Basophils Auto #/vol (Bld) 0.0 E3/mcL Normal 0.0-0.2 [facility] Comment on above: Order Comment: Order Added by Discern Expert. Performed By: #### 2 491842 ####KADEN Urinalysis Manual [address] [place] [address] Basophils/100 WBC Auto (Bld) 0.4 % Normal 0.0-2.0 [facility] Comment on above: Order Comment: Order Added by Discern Expert. Performed By: #### 2 994227 ####KADEN Urinalysis Manual [address] [address] Eos Absolute 0.1 E3/mcL Normal 0.0-0.7 [facility] Comment on above: Order Comment: Order Added by Discern Expert. Performed By: #### 2 950165 ####KADEN Urinalysis Manual [address] [place] [address] Eosinophils/100 leukocytes 0.7 % Normal 0.0-11.0 [facility] Comment on above: Order Comment: Order Added by Discern Expert. Performed By: #### 2 970316 ####[place]EN [place] [address] Lymphocytes 1.8 E3/mcL Normal 1.2-3.4 [facility] Comment on above: Order Comment: Order Added by Discern Expert. Performed By: #### 2 421519 ####KADEN Urinalysis Manual [address] [place] [address] Lymphocytes/100 leukocytes 17.1 % Low 20.0-55.0 [facility] Comment on above: Order Comment: Order Added by Discern Expert. Performed By: #### 2 980689 ####KADEN Urinalysis Manual [address] [place] [address] Preble Absolute 0.5 E3/mcL Normal 0.0-0.7 [facility] Comment on above: Order Comment: Order Added by Discern Expert. Performed By: #### 2 435870 ####KADEN Urinalysis Manual [address]iko[address]77 [place] [address] Monocytes/100 leukocytes 5.0 % Normal 0.0-10.0 [facility] Comment on above: Order Comment: Order Added by Discern Expert. Performed By: #### 2 256776 ####KADEN Urinalysis Manual [address] [place] [address] Neutro Absolute 8.0 E3/mcL High 1.4-6.5 [facility] Comment on above: Order Comment: Order Added by Discern Expert. Performed By: #### 2 713805 ####KADEN Urinalysis Manual [address] [place] [address] Neutro Auto 76.8 % High 37.0-75.0 [facility] Comment on above: Order Comment: Order Added by Discern Expert. Performed By: #### 2 689845 ####KADEN Urinalysis Manual [address] [place] [address] CBC w/ Auto Diffon 7 Erythrocyte distribution width Auto Ratio (RBC) 15.2 % High 11.5-14.5 [facility] Comment on above: Performed By: #### 2 844515 ####KADEN Urinalysis Manual [address] [place] [address] Erythrocytes (RBC) 4.90 E6/mcL Normal 3.90-5.40 [facility] Comment on above: Performed By: #### 2 763595 ####KADEN Urinalysis Manual [address] [place] [address] Hematocrit (HCT) 41.1 % Normal 36.0-48.0 [facility] Comment on above: Performed By: #### 2 630231 ####KADEN Urinalysis Manual [address] [place] [address] Hemoglobin mass conc (Bld) 13.5 g/dL Normal 12.0-16.0 [facility] Comment on above: Performed By: #### 2 272901 ####KADEN Urinalysis Manual [address] [place] [address] MCH 27.5 pg Normal 27.0-31.0 [facility] Comment on above: Performed By: #### 2 699122 ####KADEN Urinalysis Manual [address] [place] [address] MCHC mass conc (RBC) 32.8 g/dL Low 33.0-37.0 [facility] Comment on above: Performed By: #### 2 579987 ####KADEN Urinalysis Manual [address] [place] [address] MCV 83.9 fL Normal 78.0-100.0 [facility] Comment on above: Performed By: #### 2 713272 ####KADEN Urinalysis Manual [address] [place] [address] Platelet mean volume (PMV) 8.0 fL Normal 7.4-11.0 [facility] Comment on above: Performed By: #### 2 944049 ####KADEN Urinalysis Manual [address] [place] [address] Platelets 246 E3/mcL Normal 130-400 [facility] Comment on above: Performed By: #### 2 635215 ####KADEN Urinalysis Manual [address] [place], [place] [address] WBC (Leukocytes) 10.4 E3/mcL Normal 3.6-11.0 [facility] Comment on above: Performed By: #### 2 316996 ####KADEN Urinalysis Manual [address] [place] [address] Chlamydia GC by PCRon 2016 Chlamydia by PCR. Not Detected Normal Not Detected [facility] Comment on above: Result Comment: Xper t CT/NG Assay performance has not been evaluated in patients less than 14 years of age. Performed By: #### 2 610247 ####KADEN YlyClkh5649 [place] [address] Gonorrhoeae by PCR Not Detected Normal Not Detected [facility] Comment on above: Result Comment: Xper t CT/NG Assay performance has not been evaluated in patients less than 14 years of age. Performed By: #### 2 440638 ####KADEN CodQqnm[address] [place] 9[address]6705 HIV-1/2 Ag/Abon 05-01-2017 HIV-1/2 Ag/Ab Non-Reactive Normal Non-Reacti ve [facility] Comment on above: Performed By: #### 2 954335 ####[place] [address] Rubella IgG Lvlon 05-01-2017 Rubella IgG Lvl 50.8 (POS) Normal [facility] Comment on above: Result Comment: <10I U/ml NON REACTIVE: NOT KLUYAU40-74 IU/ml RUBELLA SPECIFIC AB PRESENT, EVALUATEFURTHER TO DETERMINE IMMUNE STATUS >15 IU/ml REACTIVE, IMMUNE Performed By: #### 2 625242 ####KADEN NzxQocj1902 [place] [address] Auto Diffon 04-22-2017 Basophils Auto #/vol (Bld) 0.1 E3/mcL Normal 0.0-0.2 [facility] Comment on above: Order Comment: Order Added by Discern Expert. Performed By: #### 2 992247 ####[place] [address] Basophils/100 WBC Auto (Bld) 0.6 % Normal 0.0-2.0 [facility] Comment on above: Order Comment: Order Added by Discern Expert. Performed By: #### 2 826781 ####[place] [address] Eos Absolute 0.0 E3/mcL Normal 0.0-0.7 [facility] Comment on above: Order Comment: Order Added by Discern Expert. Performed By: #### 2 [id number] ####[place] [address] Eosinophils/100 leukocytes 0.2 % Normal 0.0-11.0 [facility] Comment on above: Order Comment: Order Added by Discern Expert. Performed By: #### 2 718000 ####[place] [address] Lymphocytes 1.5 E3/mcL Normal 1.2-3.4 [facility] Comment on above: Order Comment: Order Added by Discern Expert. Performed By: #### 2 839463 ####KADEN Urinalysis Manual [address] [place] [address] Lymphocytes/100 leukocytes 10.8 % Low 20.0-55.0 [facility] Comment on above: Order Comment: Order Added by Discern Expert. Performed By: #### 2 180920 ####KADEN Urinalysis Manual [address] [place] [address] Preble Absolute 0.6 E3/mcL Normal 0.0-0.7 [facility] Comment on above: Order Comment: Order Added by Discern Expert. Performed By: #### 2 521801 ####KADEN Urinalysis Manual Urj[address]fu[address] [place] [address] Monocytes/100 leukocytes 4.4 % Normal 0.0-10.0 [facility] Comment on above: Order Comment: Order Added by Discern Expert. Performed By: #### 2 953494 ####KADEN Urinalysis Manual Khehvmbucj[address] [place] [address] Neutro Absolute 11.3 E3/mcL High 1.4-6.5 [facility] Comment on above: Order Comment: Order Added by Discern Expert. Performed By: #### 2 464537 ####KADEN Urinalysis Manual Phdyynpcvf6248[address] [place] [address] Neutro Auto 84.0 % High 37.0-75.0 [facility] Comment on above: Order Comment: Order Added by Discern Expert. Performed By: #### 2 340142 ####KADEN Urinalysis Manual Mwbhfsbajv[address] [place] [address] BMPon 04-22-2017 BUN/Creatinine Ratio Unable to calc Normal 5.4-30.0 [facility] Comment on above: Performed By: #### 2 207537 ####KADEN Urinalysis Manual Vkjsvptcsj[address]66[address] [place] [address] Creatinine mg/dL Low 0.6-1.3 [facility] Comment on above: Performed By: #### 2 301201 ####KADEN Urinalysis Manual Wanbzcrarp9175[address] [place] [address] Urea nitrogen 7 mg/dL Normal 7-18 [facility] Comment on above: Performed By: #### 2 731619 ####KADEN Urinalysis Manual Wpsknrdeuu2996 [place] [address] Calcium 9.6 mg/dL Normal 8.4-10.2 [facility] Comment on above: Performed By: #### 2 192093 ####KADEN Urinalysis Manual Msdxacelvo9202[address] [place] [address] Chloride 103 mmol/L Normal 98-107 [facility] Comment on above: Performed By: #### 2 062488 ####KADEN Urinalysis Manual Seozpqwcoe[address] [place] [address] CO2 21.7 mmol/L Low 24.0-30.0 [facility] Comment on above: Performed By: #### 2 971004 ####KADEN Urinalysis Manual Mlkabuaadu56[address] [place] [address] Glucose mass conc 89 mg/dL Normal 70-99 [facility] Comment on above: Performed By: #### 2 498733 ####KADEN Urinalysis Manual Aqnfkoxlng5611[address] [place] [address] Potassium molar conc 3.6 mmol/L Normal 3.5-5.1 [facility] Comment on above: Performed By: #### 2 063220 ####KADEN Urinalysis Manual Wtuygkqsmh6[address] [place] [address] Sodium 136 mmol/L Normal 136-145 [facility] Comment on above: Performed By: #### 2 512655 ####KADEN Urinalysis Manual Jwhyscegez1064[address] [place] [address] CBC w/ Auto Diffon 7 Erythrocyte distribution width Auto Ratio (RBC) 14.8 % High 11.5-14.5 [facility] Comment on above: Performed By: #### 2 026155 ####KADEN Urinalysis Manual Xukuvipans5886[address] [place] [address] Erythrocytes (RBC) 4.96 E6/mcL Normal 3.90-5.40 [facility] Comment on above: Performed By: #### 2 798934 ####KADEN Urinalysis Manual Vlpmgwxpzm9956[address] [place] [address] Hematocrit (HCT) 40.9 % Normal 36.0-48.0 [facility] Comment on above: Performed By: #### 2 845466 ####KADEN Urinalysis Manual Epvdjgpynz246[address] [place] [address] Hemoglobin mass conc (Bld) 13.5 g/dL Normal 12.0-16.0 [facility] Comment on above: Performed By: #### 2 935508 ####KADEN Urinalysis Manual Fdwvkwhbis4014[address] [place] [address] MCH 27.2 pg Normal 27.0-31.0 [facility] Comment on above: Performed By: #### 2 105549 ####KADEN Urinalysis Manual Yhzstxmidc[address] [place] [address] MCHC mass conc (RBC) 33.0 g/dL Normal 33.0-37.0 [facility] Comment on above: Performed By: #### 2 760526 ####KADEN Urinalysis Manual Bforfcykdc1368[address] [place] [address] MCV 82.4 fL Normal 78.0-100.0 [facility] Comment on above: Performed By: #### 2 872845 ####KADEN Urinalysis Manual Ocwkygkaev2639[address] [place] [address] Platelet mean volume (PMV) 8.0 fL Normal 7.4-11.0 [facility] Comment on above: Performed By: #### 2 940242 ####KADEN Urinalysis Manual Lltcqngodz7638[address] [place] [address] Platelets 237 E3/mcL Normal 130-400 [facility] Comment on above: Performed By: #### 2 906985 ####KADEN Urinalysis Manual Zuwxzrjqpb6716[address] [place] [address] WBC (Leukocytes) 13.5 E3/mcL High 3.6-11.0 [facility] Comment on above: Performed By: #### 2 993559 ####KADEN Urinalysis Manual Djflpkcxpw1682[address] [place] [address] UA Completeon 04-22-2017 UA Blood Negative Normal Negative [facility] Comment on above: Performed By: #### 2 266973 ####KADEN Urinalysis Manual Doxnjehqie7325 [place] [address] UA Ascorbic Acid 40 mg/dL High <=19 [facility] Comment on above: Performed By: #### 2 567103 ####KADEN Urinalysis Manual Rvvluvxvv[address] [place], [place] [address] UA Bacteria 3+ /HPF Abnormal None [facility] Comment on above: Performed By: #### 2 162208 ####KADEN Urinalysis Manual Usyznaoztj0937[address] [place] [address] UA Clarity SltCloudy Abnormal Clear [facility] Comment on above: Performed By: #### 2 905679 ####KADEN Urinalysis Manual Vxgexskyla3307[address] [place] [address] UA Leuk Est Negative Normal Negative [facility] Comment on above: Performed By: #### 2 312867 ####KADEN Urinalysis Manual Ipzcvsptqv6208[address] [place] [address] UA Mucous Few Abnormal Trace [facility] Comment on above: Performed By: #### 2 465750 ####KADEN Urinalysis Manual Ubgkgslkdc0553[address] [place] [address] UA Nitrite Negative Normal Negative [facility] Comment on above: Performed By: #### 2 776885 ####KADEN Urinalysis Manual Ixeulijlxe0058[address] [place] [address] UA pH 8.0 Normal 4.6-8.0 [facility] Comment on above: Performed By: #### 2 974638 ####KADEN Urinalysis Manual Eodicgkfxu9207[address] [place] [address] UA Protein Negative Normal Negative [facility] Comment on above: Performed By: #### 2 557279 ####KADEN Urinalysis Manual Xysmasazin9697[address] [place] [address] UA Spec Grav 1.012 Normal 1.003-1.03 0 [facility] Comment on above: Performed By: #### 2 982983 ####KADEN Urinalysis Manual Slwnzdywis[address] [place] [address] UA Squam Epithelial 0-5 Normal 0-5 [facility] Comment on above: Performed By: #### 2 585571 ####KADEN Urinalysis Manual Lcutfouyvt5612 [place] [address] UA Urobilinogen Negative Normal [facility] Comment on above: Performed By: #### 2 388847 ####KADEN Urinalysis Manual Glnaxynwwt5994 [place] [address] UA WBC 0-5 Normal 0-5 [facility] Comment on above: Performed By: #### 2 874350 ####KADEN Urinalysis Manual Ylbpbtvdcr9034 [place] [address] Urine, color Yellow Normal Yellow [facility] Comment on above: Performed By: #### 2 451496 ####KADEN Urinalysis Manual Ewcwzfdybu3593 [place] [address] Urine, glucose Negative Normal Negative [facility] Comment on above: Performed By: #### 2 125298 ####KADEN Urinalysis Manual Kqmlixmcig3747[address] [place] [address] Urine, ketones presence 1+ Abnormal Negative [facility] Comment on above: Performed By: #### 2 287912 ####KADEN Urinalysis Manual Mxwffmvhhz2912 [place] [address] Urine, urobilinogen Negative Normal Negative [facility] Comment on above: Performed By: #### 2 742382 ####KADEN Urinalysis Manual [address]wcl[address] [place] [address] eGFRon 04-22-2017 eGFR AA >60 Normal [facility] Comment on above: Order Comment: Order added by Discern Expert. Performed By: #### 2 858363 ####KADEN Urinalysis Manual [address]svosfsplc[address] [place] [address] eGFR (non-black) mL/min/{1.73_m2} Normal [facility] Comment on above: Order Comment: Order added by Discern Expert. Performed By: #### 2 615149 ####KADEN Urinalysis Manual Pgiscagqus9176 [place] [address] C Urineon 04-20-2017 C Urine Final Report: Normal skin alonso isolated Normal [facility] Comment on above: Performed By: #### 2 066022 ####KADEN Urinalysis Manual Vfplzlordo7994 [place] [address] BMPon 04-18-2017 BUN/Creatinine Ratio 15.0 ratio Normal 5.4-30.0 [facility] Comment on above: Performed By: #### 2 975754 ####KADENMorelia BairdOrgSust0590 [place] [address] Creatinine 0.6 mg/dL Normal 0.6-1.3 [facility] Comment on above: Performed By: #### 2 613939 ####KADEN BairdVhpJjkt1903 [place] [address] Urea nitrogen 9 mg/dL Normal 7-18 [facility] Comment on above: Performed By: #### 2 437295 ####KADEN BairdSxrAtpy7256 [place] [address] Calcium 9.6 mg/dL Normal 8.4-10.2 [facility] Comment on above: Performed By: #### 2 683953 ####KADEN Bai1025 [place] [address] Chloride 102 mmol/L Normal 98-107 [facility] Comment on above: Performed By: #### 2 288206 ####KADEN BairdQbgFrzn5877 [place] [address] CO2 23.3 mmol/L Low 24.0-30.0 [facility] Comment on above: Performed By: #### 2 412598 ####KADENMorelia BairdPufCdge1902 [place] [address] Glucose mass conc 93 mg/dL Normal 70-99 [facility] Comment on above: Performed By: #### 2 566499 ####KADENMorelia BairdUfgIfaf7362 [place] [address] Potassium molar conc 3.5 mmol/L Normal 3.5-5.1 [facility] Comment on above: Performed By: #### 2 350503 ####KADENMorelia BairdZnsRcay3848 [place] [address] Sodium 136 mmol/L Normal 136-145 [facility] Comment on above: Performed By: #### 2 008356 ####KADENMorelia BairdPoyNier4449 [place] [address] UA Completeon 04-18-2017 UA Blood Negative Normal Negative [facility] Comment on above: Performed By: #### 2 918437 ####KADEN Urinalysis Manual Rpmtuydikc4877 [place] [address] UA Amorph Chastity 2+ /HPF Abnormal None [facility] Comment on above: Performed By: #### 2 911363 ####KADEN Urinalysis Manual Iumbalqjwf5[address] [place] [address] UA Ascorbic Acid 40 mg/dL High <=19 [facility] Comment on above: Performed By: #### 2 909185 ####KADEN Urinalysis Manual Gdslwkvquu50[address] [place] [address] UA Clarity Cloudy Abnormal Clear [facility] Comment on above: Performed By: #### 2 860311 ####KADEN Urinalysis Manual Pgkazssvsa[address] [place] [address] UA Leuk Est Negative Normal Negative [facility] Comment on above: Performed By: #### 2 003064 ####KADEN Urinalysis Manual Ybsigjxpzc1026[address] [place] [address] UA Mucous Trace Abnormal Trace [facility] Comment on above: Performed By: #### 2 618033 ####KADEN Urinalysis Manual Gsoyzlpzhr65[address] [place] [address] UA Nitrite Negative Normal Negative [facility] Comment on above: Performed By: #### 2 024269 ####KADEN Urinalysis Manual Iqnwtjuezu4968[address] [place] [address] UA pH 7.0 Normal 4.6-8.0 [facility] Comment on above: Performed By: #### 2 211189 ####KADEN Urinalysis Manual Mqaakczwue3549[address] [place] [address] UA Protein Negative Normal Negative [facility] Comment on above: Performed By: #### 2 628530 ####KADEN Urinalysis Manual Mudswqinod4543[address] [place] [address] UA Spec Grav 1.018 Normal 1.003-1.03 0 [facility] Comment on above: Performed By: #### 2 819215 ####KADEN Urinalysis Manual Wglgsvpidv[address] [place] [address] UA Squam Epithelial 0-5 Normal 0-5 [facility] Comment on above: Performed By: #### 2 602505 ####KADEN Urinalysis Manual Tozhuwxycl766[address] [place] [address] UA Urobilinogen Negative Normal [facility] Comment on above: Performed By: #### 2 533309 ####KADEN Urinalysis Manual Wjycrzwnnu12[address] [place] [address] Urine, color Yellow Normal Yellow [facility] Comment on above: Performed By: #### 2 005379 ####KADEN Urinalysis Manual Ctfiuhkmaj118[address] [place] [address] Urine, glucose Negative Normal Negative [facility] Comment on above: Performed By: #### 2 018638 ####KADEN Urinalysis Manual Gricahwrng5336[address] [place] [address] Urine, ketones presence 2+ Abnormal Negative [facility] Comment on above: Performed By: #### 2 473916 ####KADEN Urinalysis Manual Tdprbqzquu8933[address] [place] [address] Urine, urobilinogen Negative Normal Negative [facility] Comment on above: Performed By: #### 2 895051 ####KADEN Urinalysis Manual Uxndqdgwxu1727[address] [place] [address] eGFRon 04-18-2017 eGFR (non-black) mL/min/{1.73_m2} Normal [facility] Comment on above: Order Comment: Order added by Discern Expert. Performed By: #### 1 6277612 ####KADEN ObmFnqe8568 [place] [address] eGFR AA >60 Normal [facility] Comment on above: Order Comment: Order added by Discern Expert. Performed By: #### 1 6382913 ####KADEN KbvYgam5351 [place] [address] Auto Diffon 04-11-2017 Basophils Auto #/vol (Bld) 0.1 E3/mcL Normal 0.0-0.2 [facility] Comment on above: Order Comment: Order Added by Discern Expert. Performed By: #### 2 021541 ####KADEN TnqYzhu1566 [place] [address] Basophils/100 WBC Auto (Bld) 0.7 % Normal 0.0-2.0 [facility] Comment on above: Order Comment: Order Added by Discern Expert. Performed By: #### 2 260442 ####KADEN BairdMzgEfup6362 [place] [address] Eos Absolute 0.0 E3/mcL Normal 0.0-0.7 [facility] Comment on above: Order Comment: Order Added by Discern Expert. Performed By: #### 2 459015 ####KADEN BairdYdwMfou7630 [place] [address] Eosinophils/100 leukocytes 0.1 % Normal 0.0-11.0 [facility] Comment on above: Order Comment: Order Added by Discern Expert. Performed By: #### 2 887753 ####KADEN BairdArpAycx6888 [place] [address] Lymphocytes 1.5 E3/mcL Normal 1.2-3.4 [facility] Comment on above: Order Comment: Order Added by Discern Expert. Performed By: #### 2 872761 ####KADEN BairdOdyFtam9611 [place] [address] Lymphocytes/100 leukocytes 17.2 % Low 20.0-55.0 [facility] Comment on above: Order Comment: Order Added by Discern Expert. Performed By: #### 2 550499 ####KADEN BairdTbkXplh3053 [place] [address] Preble Absolute 0.6 E3/mcL Normal 0.0-0.7 [facility] Comment on above: Order Comment: Order Added by Discern Expert. Performed By: #### 2 421890 ####KADEN BairdFuwUlqp7128 [place] [address] Monocytes/100 leukocytes 6.6 % Normal 0.0-10.0 [facility] Comment on above: Order Comment: Order Added by Discern Expert. Performed By: #### 2 744292 ####KADEN BairdHtjUixa9570 [place] [address] Neutro Absolute 6.7 E3/mcL High 1.4-6.5 [facility] Comment on above: Order Comment: Order Added by Discern Expert. Performed By: #### 2 636333 ####KADEN BairdYhpSffw5479 [place] [address] Neutro Auto 75.4 % High 37.0-75.0 [facility] Comment on above: Order Comment: Order Added by Discern Expert. Performed By: #### 2 138491 ####KADEN Luceroo1025 [place] [address] BMPon 04-11-2017 BUN/Creatinine Ratio 12.9 ratio Normal 5.4-30.0 [facility] Comment on above: Performed By: #### 2 114241 ####KADEN Bai1025 [place] [address] Creatinine 0.7 mg/dL Normal 0.6-1.3 [facility] Comment on above: Performed By: #### 2 286915 ####KADEN Bai1025 [place] [address] Urea nitrogen 9 mg/dL Normal 7-18 [facility] Comment on above: Performed By: #### 2 969125 ####KADEN BairdSylZoru2095 [place] [address] Calcium 9.5 mg/dL Normal 8.4-10.2 [facility] Comment on above: Performed By: #### 2 018229 ####KADEN BairdZtpMord2513 [place] [address] Chloride 105 mmol/L Normal 98-107 [facility] Comment on above: Performed By: #### 2 400848 ####KADEN BairdFfwJqlg0643 [place] [address] CO2 22.5 mmol/L Low 24.0-30.0 [facility] Comment on above: Performed By: #### 2 160106 ####KADEN BairdObdQqfh8500 [place] [address] Glucose mass conc 92 mg/dL Normal 70-99 [facility] Comment on above: Performed By: #### 2 550242 ####KADEN BairdQaaRqnk2163 [place] [address] Potassium molar conc 3.6 mmol/L Normal 3.5-5.1 [facility] Comment on above: Performed By: #### 2 096289 ####KADENMorelia BairdKkuFexw3402 [place] [address] Sodium 137 mmol/L Normal 136-145 [facility] Comment on above: Performed By: #### 2 094648 ####KADEN HacTfvx8058 [place] [address] BhCG Quanton 04-11-2017 Beta hCG Qnt 8564.0 mIU/m Normal [facility] Comment on above: Result Comment: FEMA LE (NON-) & MALE <3 BORDERLINE 3 - 5 SUGGEST REPEAT TESTING FEMALE () 1 D - 1 WK 5 - 50 1 - 2 WK 50 - 500 2 - 3 WK 100 - 5000 3 - 4 WK 500 - 77443 4 - 5 WK 1000 - 80643 5 - 6 WK [address] - 331154 6 - 8 W[place] [address] - 385045 2 - 3 [place] [address] - 342763 Performed By: #### 2 468269 ####KADENMorelia BairdEqeCidl6158 [place] [address] CBC w/ Auto Diffon 7 Erythrocyte distribution width Auto Ratio (RBC) 13.9 % Normal 11.5-14.5 [facility] Comment on above: Performed By: #### 2 771816 ####KADENMorelia LuceroNtiMgme7045 [place] [address] Erythrocytes (RBC) 4.63 E6/mcL Normal 3.90-5.40 [facility] Comment on above: Performed By: #### 2 832369 ####KADENMorelia BairdSijVtib0325 [place] [address] Hematocrit (HCT) 38.2 % Normal 36.0-48.0 [facility] Comment on above: Performed By: #### 2 158921 ####KADENMorelia BairdBjbMptp5060 [place] [address] Hemoglobin mass conc (Bld) 12.6 g/dL Normal 12.0-16.0 [facility] Comment on above: Performed By: #### 2 870500 ####KADENMorelia BairdQwuFunq1012 [place] [address] MCH 27.2 pg Normal 27.0-31.0 [facility] Comment on above: Performed By: #### 2 810293 ####KADEN BairdOmpYvnt5506 [place] [address] MCHC mass conc (RBC) 33.0 g/dL Normal 33.0-37.0 [facility] Comment on above: Performed By: #### 2 318535 ####KADEN BairdXqgLvxc1857 [place] [address] MCV 82.6 fL Normal 78.0-100.0 [facility] Comment on above: Performed By: #### 2 008210 ####KADEN Luceroo1025 [place] [address] Platelet mean volume (PMV) 8.0 fL Normal 7.4-11.0 [facility] Comment on above: Performed By: #### 2 364550 ####KADEN Luceroo1025 [place] [address] Platelets 233 E3/mcL Normal 130-400 [facility] Comment on above: Performed By: #### 2 127068 ####KADEN Luceroo1025 [place] [address] WBC (Leukocytes) 9.0 E3/mcL Normal 3.6-11.0 [facility] Comment on above: Performed By: #### 2 053408 ####KADEN Luceroo1025 [place] [address] UA Completeon 04-11-2017 UA Blood Negative Normal Negative [facility] Comment on above: Result Comment: High concentration of Ascorbic Acid present in urine. This may cause False Negative Occ Blood. Review microscopic results and patient's clinical symptoms. Performed By: #### 8 [id number] ####KADEN Urinalysis Automated Edseohpmoe1278 [place] [address] UA Amorph Chastity 1+ /HPF Abnormal None [facility] Comment on above: Performed By: #### 8 6210626 ####KADEN Urinalysis Automated Twwrjashqr1188 [place] [address]67[address] UA Ascorbic Acid 40 mg/dL High <=19 [facility] Comment on above: Performed By: #### 8 6600914 ####KADEN Urinalysis Automated Yminexqozr4224 [place] [address] UA Bacteria Trace Abnormal None [facility] Comment on above: Performed By: #### 8 9016002 ####KADEN Urinalysis Automated Yxztnkiymy5200 [place] [address] UA Clarity Cloudy Abnormal Clear [facility] Comment on above: Performed By: #### 8 7358638 ####KADEN Urinalysis Automated Nmsbzwrnxi6267 [place] [address] UA Leuk Est Negative Normal Negative [facility] Comment on above: Performed By: #### 8 2547454 ####KADEN Urinalysis Automated Ydlofnosrb3825 [place] [address] UA Mucous Few Abnormal Trace [facility] Comment on above: Performed By: #### 8 0559647 ####KADEN Urinalysis Automated Cvezsyznju36[address] [place] [address] UA Nitrite Negative Normal Negative [facility] Comment on above: Performed By: #### 8 5059078 ####KADEN Urinalysis Automated Wisufxkqpv[address] [place] [address] UA pH 7.0 Normal 4.6-8.0 [facility] Comment on above: Performed By: #### 8 0490958 ####KADEN Urinalysis Automated Ydaywhcevr914[address] [place] [address] UA Protein Negative Normal Negative [facility] Comment on above: Performed By: #### 8 7288768 ####KADEN Urinalysis Automated Fjzqvngapr65[address] [place] [address] UA Spec Grav 1.025 Normal 1.003-1.03 0 [facility] Comment on above: Performed By: #### 8 0404793 ####KADEN Urinalysis Automated Dhhrkunvth0846 [place] [address] UA Squam Epithelial 5-10 Abnormal 0-5 [facility] Comment on above: Performed By: #### 8 3388466 ####KADEN Urinalysis Automated Ikaepyoywa3584[address] [place] [address] UA Urobilinogen 2.0 mg/dL Abnormal [facility] Comment on above: Performed By: #### 8 2381876 ####KADEN Urinalysis Automated Zbesdspbor5613[address] [place] [address] Urine, color Yellow Normal Yellow [facility] Comment on above: Performed By: #### 8 2653598 ####KADEN Urinalysis Automated Ijatfrrlgx8686 [place] [address] Urine, erythrocytes 0-3 Normal 0-3 [facility] Comment on above: Performed By: #### 8 2552737 ####KADEN Urinalysis Automated Pmzuhlqflc9607 [place] [address] Urine, glucose Negative Normal Negative [facility] Comment on above: Performed By: #### 8 0727959 ####KADEN Urinalysis Automated Fuihrszsxd8057[address] [place] [address] Urine, ketones presence 2+ Abnormal Negative [facility] Comment on above: Performed By: #### 8 5561129 ####KADEN Urinalysis Automated Xkisbgruhs4185[address] [place] [address] Urine, urobilinogen Negative Normal Negative [facility] Comment on above: Performed By: #### 8 7371523 ####KADEN Urinalysis Automated Nsqdkxkpet3015[address] [place] [address] eGFRon 04-11-2017 eGFR (non-black) mL/min/{1.73_m2} Normal [facility] Comment on above: Order Comment: Order added by Discern Expert. Performed By: #### 1 [id number] ####KADEN XnhLhpp1023 [place] [address] eGFR AA >60 Normal [facility] Comment on above: Order Comment: Order added by Discern Expert. Performed By: #### 1 [id number] ####KADEN [id number] [place] [address] U BhCG Qlton 03-20-2017 HCG.beta subunit Qn Negative Normal Neg [facility] Comment on above: Performed By: #### 2 [id number] ####KADEN Urinalysis Manual [address] [place] [address] UA Completeon 03-20-2017 UA Blood Negative Normal Negative [facility] Comment on above: Performed By: #### 8 [id number] ####KADEN Urinalysis Automated [id number] [place] [address] UA Amorph Chastity 1+ /HPF Abnormal None [facility] Comment on above: Performed By: #### 8 [id number] ####KADEN Urinalysis Automated Fcnxbptsrx4921 [place] [address] UA Bacteria 2+ /HPF Abnormal None [facility] Comment on above: Performed By: #### 8 [id number] ####KADEN Urinalysis Automated Apgygfnlkv5564 [place] [address] UA Clarity Cloudy Abnormal Clear [facility] Comment on above: Performed By: #### 8 [id number] ####KADEN Urinalysis Automated Ffbsencrmv3459 [place] [address] UA Leuk Est 1+ Abnormal Negative [facility] Comment on above: Performed By: #### 8 [id number] ####KADEN Urinalysis Automated Hmlb[address]jlwl[address]98[address] [place] [address] UA Mucous Occasional Abnormal Trace [facility] Comment on above: Performed By: #### 8 [id number] ####KADEN Urinalysis Automated [address] [place] [address] UA Nitrite Negative Normal Negative [facility] Comment on above: Performed By: #### 8 [id number] ####KADEN Urinalysis Automated Arpermdujm1968[address] [place] [address] UA pH 6.0 Normal 4.6-8.0 [facility] Comment on above: Performed By: #### 8 [id number] ####KADEN Urinalysis Automated Zxhfxnosdk[address] [place] [address] UA Protein 1+ Abnormal Negative [facility] Comment on above: Performed By: #### 8 [id number] ####KADEN Urinalysis Automated Mqpaqyvvhz7854 [place] [address] UA Spec Grav 1.019 Normal 1.003-1.03 0 [facility] Comment on above: Performed By: #### 8 [id number] ####KADEN Urinalysis Automated [address] [place] [address] UA Squam Epithelial 5-10 Abnormal 0-5 [facility] Comment on above: Performed By: #### 8 [id number] ####KADEN Urinalysis Automated Huhnxauuoa5009 [place] [address] UA Urobilinogen Negative Normal [facility] Comment on above: Performed By: #### 8 [id number] ####KADEN Urinalysis Automated Ietcapcypt1399 [place] [address] UA WBC >50 Abnormal 0-5 [facility] Comment on above: Performed By: #### 8 [id number] ####KADEN Urinalysis Automated Zsmatpuryj2822 [place] [address] Urine, color Yellow Normal Yellow [facility] Comment on above: Performed By: #### 8 [id number] ####KADEN Urinalysis Automated Kipivoftaq3524 [place] [address] Urine, erythrocytes 5-10 Abnormal 0-3 [facility] Comment on above: Performed By: #### 8 [id number] ####KADEN Urinalysis Automated Qaaqntcsfv5166 [place] [address] Urine, glucose Negative Normal Negative [facility] Comment on above: Performed By: #### 8 [id number] ####KADEN Urinalysis Automated Ozmeotnxbl9443 [place] [address] Urine, ketones presence Negative Normal Negative [facility] Comment on above: Performed By: #### 8 [id number] ####KADEN Urinalysis Automated Cgjpwfvicr1566 [place] [address] Urine, urobilinogen Negative Normal Negative [facility] Comment on above: Performed By: #### 8 [id number] ####KADEN Urinalysis Automated Phvygdglcc2467 [place] [address] Vital Signs Date Time Vital Sign Value Performing Clinician Facility 07-18-2023 10:30-0500 Body mass index (BMI) [Ratio] 26.7 kg/m2 [employer] DO Work Phone: [facility] 07-18-2023 10:30-0500 Body weight 75.03 kg [employer] Work Phone: [facility] 07-18-2023 10:30-0500 Diastolic blood pressure 68 mm[Hg] [employer] Work Phone: [facility] 07-18-2023 10:30-0500 Systolic blood pressure 106 mm[Hg] Cuong Ortiz DO Work Phone: [facility] 02-11-2023 14:13-0400 Body height 165.1 cm PAZhao Wyatt Work Phone: 02-11-2023 14:13-0400 Body temperature 97.9 [degF] SADAF Wyatt Work Phone: 02-11-2023 14:13-0400 Body weight 70.55 kg PAZhao Wyatt Work Phone: 02-11-2023 14:13-0400 Diastolic blood pressure 80 mm[Hg] SADAF Wyatt Work Phone: 02-11-2023 14:13-0400 Heart rate 60 /min SADAF Wyatt Work Phone: 02-11-2023 14:13-0400 Respiratory rate 15 /min SADAF Wyatt Work Phone: 02-11-2023 14:13-0400 SaO2% (BldA) [Mass fraction] 99 % SADAF Wyatt Work Phone: 02-11-2023 14:13-0400 Systolic blood pressure 134 mm[Hg] SADAF Wyatt Work Phone: 02-08-2023 12:36-0400 Body height 165.1 cm SADAF Wyatt Work Phone: 02-08-2023 12:36-0400 Body temperature 98.2 [degF] SADAF Wyatt Work Phone: 02-08-2023 12:36-0400 Body weight 72.57 kg SADAF Wyatt Work Phone: 02-08-2023 12:36-0400 Diastolic blood pressure 84 mm[Hg] SADAF Wyatt Work Phone: 02-08-2023 12:36-0400 Heart rate 74 /min PA-Ventura yWatt Work Phone: 02-08-2023 12:36-0400 Respiratory rate 15 /min PA-C Andie Wyatt Work Phone: 02-08-2023 12:36-0400 SaO2% (BldA) [Mass fraction] 98 % PA-C Andie Wyatt Work Phone: 02-08-2023 12:36-0400 Systolic blood pressure 150 mm[Hg] PA-C Andie Wyatt Work Phone: 12-19-2022 14:43-0400 Body temperature 96.9 [degF] FERMIN-Ventura Wyatt Work Phone: 12-19-2022 14:43-0400 Diastolic blood pressure 74 mm[Hg] PA-C Andie Wyatt Work Phone: 12-19-2022 14:43-0400 Heart rate 59 /min FERMIN-C Andie Wyatt Work Phone: 12-19-2022 14:43-0400 Respiratory rate 18 /min PA-Ventura Wyatt Work Phone: 12-19-2022 14:43-0400 SaO2% (BldA) [Mass fraction] 100 % PA-C Andie Wyatt Work Phone: 12-19-2022 14:43-0400 Systolic blood pressure 115 mm[Hg] PA-Ventura Wyatt Work Phone: 12-19-2022 14:00-0400 Diastolic blood pressure 89 mm[Hg] PA-Ventura Wyatt Work Phone: 12-19-2022 14:00-0400 Heart rate 79 /min PA-Ventura Wyatt Work Phone: 12-19-2022 14:00-0400 Respiratory rate 16 /min SADAF Wyatt Work Phone: 12-19-2022 14:00-0400 SaO2% (BldA) [Mass fraction] 99 % SADAF Wyatt Work Phone: 12-19-2022 14:00-0400 Systolic blood pressure 150 mm[Hg] PA-Ventura Wyatt Work Phone: 12-19-2022 03:30-0400 Body height 165.1 cm SADAF Wyatt Work Phone: 12-19-2022 03:30-0400 Body weight 72.2 kg PAZhao Wyatt Work Phone: 12-18-2022 23:07-0400 Body height 165.1 cm PAZhao Wyatt Work Phone: 12-18-2022 23:07-0400 Body weight 74.2 kg SADAF Wyatt Work Phone: 12-18-2022 23:05-0400 Body temperature 98.5 [degF] SADAF Wyatt Work Phone: 08-20-2022 14:31-0500 Body height 165.1 cm SADAF Wyatt Work Phone: 08-20-2022 14:31-0500 Body temperature 98.9 [degF] SADAF Wyatt Work Phone: 08-20-2022 14:31-0500 Body weight 71.55 kg SDAAF Wyatt Work Phone: 08-20-2022 14:31-0500 Diastolic blood pressure 87 mm[Hg] SADAF Wyatt Work Phone: 03-06-2023 14:31-0500 Heart rate 97 /min PA-C Andie Wyatt Work Phone: 08-20-2022 14:31-0500 Respiratory rate 18 /min PA-Ventura Wyatt Work Phone: 08-20-2022 14:31-0500 SaO2% (BldA) [Mass fraction] 98 % PA-Ventura Wyatt Work Phone: 08-20-2022 14:31-0500 Systolic blood pressure 135 mm[Hg] PA-C Andie Wyatt Work Phone: 02-08-2022 03:06-0400 Body weight 68.[address] CUONG ORTIZ . [facility] Comment on above: Performed By: #### AFPMAT #### [facility] [address] [place] [address] Dr. Juan Antonio Ibarra 02-05-2022 18:24-0400 Body height 165.1 cm PAZhao Wyatt Work Phone: 02-05-2022 18:24-0400 Body temperature 98.3 [degF] PAZhao Wyatt Work Phone: 02-05-2022 18:24-0400 Body weight 67.9 kg PAZhao Wyatt Work Phone: 02-05-2022 18:24-0400 Diastolic blood pressure 68 mm[Hg] PA-Ventura Wyatt Work Phone: 02-05-2022 18:24-0400 Heart rate 92 /min SADAF Wyatt Work Phone: 02-05-2022 18:24-0400 Respiratory rate 18 /min PA-Ventura Wyatt Work Phone: 02-05-2022 18:24-0400 SaO2% (BldA) [Mass fraction] 99 % PAZhao Wyatt Work Phone: 02-05-2022 18:24-0400 Systolic blood pressure 125 mm[Hg] SADAF Wyatt Work Phone: Encounters Encounter Date Encounter Type Care Provider Facility Start: 09-30-2023 End: 09-30-2023 ambulatory CUONG DIANA Not Available Start: 09-12-2023 End: 09-12-2023 ambulatory CUONG DIANA Not Available Start: 08-15-2023 End: 08-15-2023 ambulatory ANDIE Morelia [facility] Start: 08-15-2023 End: 08-15-2023 ambulatory CUONG DIANA Not Available Start: 07-22-2023 Documentation procedure Lucio HARPER Work Phone: [facility] Comment on above: Outgoing Ca [...] Start: 07-18-2023 End: 07-18-2023 ambulatory ANDIE Thibodeaux [facility] Start: 07-03-2023 End: 07-03-2023 ambulatory CUONG R [facility] Start: 07-03-2023 End: 07-03-2023 Telemedicine consultation with patient Rosaura HARPER Work Phone: [facility] Comment on above: Family history of ge netic disorder (Primary Dx); Genetic testing; Fetus with trisomy 13, single gestation Start: 06-20-2023 End: 06-20-2023 ambulatory BARB KRMAER Not Available Start: 05-23-2023 End: 05-23-2023 ambulatory CUONG ORTIZ Not Available Start: 04-16-2023 ambulatory Cesar Clayton acility: Start: 02-11-2023 End: 02-11-2023 Emergency department patient visit Johnson Valencia Facility: Start: 02-11-2023 End: 02-11-2023 Emergency department patient visit SADAF Wyatt Work Phone: [facility] Work Phone: Start: 02-08-2023 End: 02-08-2023 Emergency department patient visit Elle Rhodes Facility: Start: 02-08-2023 End: 02-08-2023 Emergency department patient visit SADAF Wyatt Work Phone: [facility] Work Phone: Start: 12-19-2022 End: 12-19-2022 ambulatory Arden Orozco Facility: Start: 12-19-2022 End: 12-19-2022 Evaluation and management of inpatient SADAF Wyatt Work Phone: [facility] Work Phone: Start: 12-19-2022 End: 12-19-2022 observation encounter SADAF Wyatt Work Phone: [facility] Work Phone: Start: 10-24-2022 End: 10-24-[address] CUONG ORTIZ . Facility: Start: 10-23-2022 Registered Recurring SADAF Wyatt Work Phone: [facility] Start: 08-20-2022 End: 08-20-2022 Emergency department patient visit Elle Rhodes Facility: Start: 08-20-2022 End: 08-20-2022 Emergency department patient visit SADAF Wyatt Work Phone: [facility] Work Phone: Start: 07-23-[address] CUONG ORTIZ . Facili ty:H1 Start: 07-09-2022 End: 07-09-[address] CUONG ORTIZ . Facility: Start: 07-05-2022 End: 07-07-2022 Evaluation and management of inpatient DR CUONG ORTIZ . Facility:[facility] Start: 07-02-2022 End: 07-02-2022 ambulatory [facility] Facility:[facility] Start: 06-28-2022 End: 06-28-[address] CUONG ORTIZ . Facility:[facility] Start: 06-21-2022 End: 06-21-2022 [facility] Facility:[facility] Start: 06-16-2022 End: 06-16-[address] [...] ORTIZ . Facility:[facility] Start: 05-24-2022 End: 05-24-2022 [facility] Facility:[facility]1 Start: 04-04-2022 End: 04-05-[address] CUONG ORTIZ . Facility:[facility] Start: 03-20-2022 End: 03-21-[address] CUONG ORTIZ . Facility:[facility] Start: 02-22-2022 End: 02-23-[address] CUONG ORTIZ . Facility:[facility] Start: 02-06-2022 End: 02-06-[address] CUONG ORTIZ . Facility:[facility] Start: 02-06-2022 End: 02-07-[address] CUONG ORTIZ . Facility:[facility] Start: 02-05-2022 End: 02-05-2022 Emergency department patient visit SADAF Wyatt Work Phone: [facility] Start: 12-26-2021 End: 12-27-[address] CUONG ORTIZ . Facility:[facility]1 Start: 12-07-2021 End: 12-08-[address] CUONG ORTIZ . Facility: Start: 12-27-2017 End: 12-27-2017 Patient encounter Christian Ivan Facility:[facility] Start: 12-12-2017 End: 12-12-2017 Emergency department patient visit Luke Barbosa Facility:[facility] Start: 12-12-2017 Patient encounter Facil [id number] Start: 12-07-2017 Evaluation and management of inpatient CLARA EVITA Facility:[facility] Start: 12-03-2017 Evaluation and management of inpatient CLARA JAMA Facility:[facility] Start: 12-03-2017 Patient encounter procedure CLARA JAMA Facility:[facility] Start: 12-02-2017 Evaluation and management of inpatient CLARA JAMA Facility:[facility] Start: 11-30-2017 End: 12-02-2017 Evaluation and management of inpatient CLARA TERESA JAMA [facility] Start: 11-30-2017 End: 11-30-2017 Patient encounter Salomon Nguyen Facility:[facility] Start: 11-30-2017 Patient encounter Facil [id number] Start: 11-28-2017 End: 11-28-2017 Patient encounter CLARA JAMA [facility] Start: 11-21-2017 End: 11-21-2017 Patient encounter OKSANA MASON [facility] Start: 11-21-2017 End: 11-21-2017 Patient encounter Juanita Cole Facility:[facility] Start: 11-20-2017 Patient encounter Facil [id number] Start: 11-17-2017 End: 11-17-2017 Patient encounter Christian Ivan Facility:[facility] Start: 11-16-2017 Patient encounter Facil [id number] Start: 11-07-2017 End: 11-07-2017 Patient encounter OKSANA AMADO [facility] Start: 10-31-2017 End: 10-31-2017 Patient encounter CLARA JAMA [facility] Start: 10-24-2017 End: 10-24-2017 Patient encounter MARCO ANTONIO Denton ANDIRUFUS [facility] Start: 10-16-2017 End: 10-16-2017 Patient encounter Christian A Culbertson Facility:[facility] Start: 10-08-2017 End: 10-08-2017 Patient encounter [facility] Start: 10-08-2017 End: 10-08-2017 Patient encounter OKSANA AMADO [facility] Start: 10-01-2017 End: 10-02-2017 Patient encounter Christian A Culbertson Facility:[facility] Start: 09-10-2017 End: 09-11-2017 Patient encounter LUIS DANIEL VALERI [facility] Start: 09-10-2017 End: 09-10-2017 Patient encounter KRIS Gan LAI [facility] Start: 09-10-2017 End: 09-10-2017 Patient encounter CLARA JAMA [facility] Start: 09-03-2017 End: 09-04-2017 Patient encounter Christian A Culbertson Facility:[facility] Start: 08-28-2017 Ambulatory [facility] Start: 08-13-2017 End: 08-14-2017 Patient encounter CLARA JAMA [facility] Start: 08-13-2017 End: 08-13-2017 Patient encounter MEREDITH BENITO [facility] Start: 08-13-2017 End: 08-13-2017 Patient encounter [facility] Start: 08-10-2017 End: 08-10-2017 Emergency department patient visit Luke Barbosa Facility:[facility] Start: 08-06-2017 End: 08-07-2017 Patient encounter Christian A Culbertson Facility:[facility] Start: 07-23-2017 End: 07-24-2017 Patient encounter Christian A Culbertson Facility:[facility] Start: 07-18-2017 End: 07-18-2017 Patient encounter CLARA JAMA [facility] Start: 07-09-2017 End: 07-10-2017 Patient encounter Christian Ivan Facility:[facility] Start: 06-25-2017 End: 06-26-2017 Patient encounter Christian Ivan Facility:[facility] Start: 06-12-2017 End: 06-12-2017 Patient encounter Christian Ivan Facility:[facility] Start: 05-14-2017 End: 05-15-2017 Patient encounter Christian Ivan Facility:[facility] Start: 05-01-2017 End: 05-02-2017 Patient encounter Salomon Nguyen Facility:[facility] Start: 04-23-2017 End: 04-23-2017 Patient encounter Yasmin Evans Facility:[facility] Start: 04-22-2017 End: 04-22-2017 Emergency department patient visit Luke Ochoaer Facility:[facility] Start: 04-18-2017 End: 04-18-2017 Emergency department patient visit Luke Barbosa Facility:[facility] Start: 04-16-2017 End: 04-17-2017 Patient encounter Gamaliel Savage Facility:[facility] Start: 04-16-2017 End: 04-17-2017 Patient encounter Christian Ivan Facility:[facility] Start: 04-11-2017 End: 04-11-2017 Emergency department patient visit Nodr No Doctor Assigned Facility:[facility] Start: 03-26-2017 End: 03-27-2017 Patient encounter Lukefernando Barbosa Facility:[facility] Start: 03-20-2017 End: 03-20-2017 Emergency department patient visit Nodr No Doctor Assigned Facility:[facility] Start: 03-01-2017 End: 03-01-2017 Emergency department patient visit Nodr No Doctor Assigned Facility:[facility] Procedures Date Procedure Procedure Detail Performing [...] on above: Result Comment: PERF ORMED BY: [facility] [address] [place] [address] PATHOLOGIST SUPERVISOR [employer] MALVIN MEDLEY M.D. Start: 12-19-2022 X-ray of [...] Adult depression scr eening assessment Rosaura Renee [facility] Work Phone: Start: 11-30-2017 Antibody screen SHAINA JAMA Comment on above: Performed By: #### T &S #### [place] [address] Aerobic microbial culture FERMIN Wyatt Work Phone: Investigation of transfusion reaction SADAF Wyatt Work Phone: Plan of Treatment Date Care Activity Detail Author Start: 12-18-2032 DTaP,Tdap and Td Vaccines (10 - Td or Tdap) DTaP,Tdap and Td Vaccines (10 - Td or Tdap) [facility] Start: 09-11-2023 Adult BMI Screening Adult BMI Screening [facility] Start: 09-11-2023 Tobacco Screening Tobacco Screening [facility] Start: 08-15-2023 End: 08-15-2023 Patient encounter procedure 08/15/2023 2:15 PM EST Appointment [facility] [address] [address] [facility] Start: 08-15-2023 End: 08-15-2023 Patient encounter procedure 08/15/2023 9:10 AM EST Routine [facility] [address] [place] [address] Cuong Ortiz, DO [address] [place] [address] [facility] Start: 07-18-2023 End: 07-18-2023 Patient encounter procedure 07/18/2023 8:00 AM EST Appointment [facility] [address] [facility] [address] [place] [address] [facility] Start: 05-02-2023 Depression Screening Depression Screening [facility] Start: 02-15-2023 COVID-19 Vaccine ( season) COVID-19 Vaccine () [facility] Start: 02-15-2023 Influenza vaccination [facility] Start: 12-19-2022 Bacteria identified in Urine by Culture Urine Culture Start: 12-19-2022 Start: 12-19-2022 CT of head without contrast CT head/brain wo con Start: 12-19-2022 CT Unspecified body region WO contrast Start: 12-19-2022 Consultation Start: 12-19-2022 Hospital admission Start: 12-19-2022 X-ray of left foot XR foot LT 2V Start: 12-19-2022 XR Foot - left 2 Views [facility] Start: 12-18-2022 Computed tomography of thoracic spine without contrast CT thoracic spine wo [facility] Start: 12-18-2022 CT cervical spine without contrast CT cervical spine wo [facility] Start: 12-18-2022 CT Cervical spine WO contrast Start: 12-18-2022 CT Lumbar spine WO contrast Start: 12-18-2022 CT of head without contrast CT head/brain wo [facility] Start: 12-18-2022 CT of lumbar spine without contrast CT lumbar spine wo [facility] Start: 12-18-2022 CT Thoracic spine WO contrast Start: 12-18-2022 CT Unspecified body region WO contrast Start: 12-18-2022 Pelvis X-ray XR pelvis 1-2V Start: 12-18-2022 Plain chest X-ray XR chest 1V portable Start: 12-18-2022 X-ray of both knees XR knee BI 2V Start: 12-18-2022 XR Chest Single view Start: 12-18-2022 XR Knee - bilateral 2 Views Start: 12-18-2022 XR Pelvis 1 or 2 Views [facility] Start: 2022 Screening for malignant neoplasm of cervix [facility] Start: 02-05-2022 [facility] Work Phone: Start: 2013 Screening for malignant neoplasm of cervix Pap Smear [facility] [facility] Start: 2010 Adult BMI Follow Up Plan Adult BMI Follow Up Plan [facility] Anaerobic microbial culture Anaerobic Culture Bacteria identified in Urine by Culture Patient Education [facility] Work Phone: Patient referral [facility] Work Phone: Immunizations Immunization Date Immunization Notes Care Provider Britney young 12-18-2022 tetanus toxoid, redu swati diphtheria toxoid, and acellular pertussis vaccine, adsorbed SADAF Wyatt Work Phone: 05-19-2013 influenza virus vaccine, unspecified formulation Rosaura Renee [facility] Work Phone: [facility] [employer] Payers Date Payer Category Payer Self-pay 2017 Medicaid 2017 Unknown 1992 Unknown [id number] 2.16.840.1.010771.3.579.2.278 1992 Unknown [id number] 2.16.840.1.031660.3.579.2.278 1992 Unknown [id number] 2.16.840.1.543641.3.579.2.278 1992 Unknown [id number] 2.16.840.1.953118.3.579.2.278 1992 Unknown [id number] 2.16.840.1.396189.3.579.2.593 1992 Unknown [id number] 2.16.840.1.525861.3.579.2.593 1992 Unknown [id number] 2.16.840.1.634673.3.579.2.593 1992 Unknown [id number] 2.16.840.1.525611.3.579.2.593 1992 Unknown [id number] 2.16.840.1.361466.3.579.2.593 1992 Unknown [id number] 2.16.840.1.914152.3.579.2.593 1992 Unknown [id number] 2.16.840.1.935290.3.579.2.593 1992 Unknown [id number] 2.16.840.1.356765.3.579.2.593 1992 Unknown [id number] 2.16.840.1.877938.3.579.2.593 1992 Unknown [id number] 2.16.840.1.857077.3.579.2.593 1992 Unknown [id number] 2.16.840.1.012664.3.579.2.59 1992 Unknown [id number] 2.16.840.1.580884.3.579.2.59 1992 Unknown [id number] 2.16.840.1.113930.3.579.2.59 1992 Unknown [id number] 2.16.840.1.503064.3.579.2.59 1992 Unknown [id number] 2.16.840.1.856581.3.579.2.59 1992 Unknown [id number] 2.16.840.1.336305.3.579.2.59 1992 Unknown [id number] 2.16.840.1.737475.3.579.2.59 1992 Unknown [id number] 2.16.840.1.225333.3.579.2.59 1992 Unknown [id number] 2.16.840.1.196117.3.579.2.59 1992 Unknown [id number] 2.16.840.1.331509.3.579.2.59 1992 Unknown [id number] 2.16.840.1.474305.3.579.2.593 1992 Unknown [id number] 2.16.840.1.457947.3.579.2.593 1992 Unknown [id number] 2.16.840.1.159240.3.579.2.1286 1992 Unknown [id number] 2.16.840.1.323256.3.579.2.1286 1992 Unknown [id number] 2.16.840.1.963924.3.579.2.1286 1992 Unknown [id number] 2.16.840.1.979493.3.579.2.9 1992 Unknown [id number] 2.16840.1.245621.3.579.2.9 1992 Unknown [id number] 2.16.840.1.613014.3.579.2.1258 1992 Unknown [id number] 2.16840.1.585327.3.579.2.9 1992 Unknown [id number] 2.840.1.714270.3.579.2.1258 1992 Unknown [id number] 2.840.1.871097.3.579.2.9 1959 Medicaid [id number] 1957 Medicaid [id number] Medicaid [id number] Unknown Regular Auto/Liability [id number] Unknown [id number] .840.1.151869.3.579.2.531 Unknown [id number] .840.1.664394.3.579.2.531 Unknown [id number] 2.840.1.910402.3.579.2.531 Unknown [id number] 2.840.1.111173.3.579.2.531 Unknown [id number] 2.840.1.585083.3.579.2.531 Social History Date Type Detail Facility Start: 02-05-2022 End: 05-09-2023 Tobacco smoking status NHIS Never smoked tobacco (finding) Start: 1990 Sex Assigned At Female Start: 12-19-2022 End: 12-19-2022 Tobacco smoking status NHIS Current some day smoker Start: 03-28-2022 End: 02-11-2023 Tobacco smoking status NHIS Ex-smoker (finding) History of tobacco use Current smoker [facility] History of tobacco use Tobacco U se Types Packs/Day Years Used Date Smoking Tobacco: Former Vaping/E-cigarettes Smokeless Tobacco: Never [facility] Start: 03-28-2022 Tobacco use and exposure Smokeless tobacco non-user [facility] Start: 06-26-2023 Alcohol intake Current non-drinker of alcohol (finding) [facility] Start: 03-18-2018 End: 05-09-2023 History of Social function [facility] Start: 03-18-2018 End: 05-09-2023 Alcohol Use Disorder Identification Test - Consumption [AUDIT-C] [facility] [facility] Frequency of Alcohol Consumption Never [facility] Start: 03-11-2023 [facility] Start: 1990 Sex Assigned At Not on file [facility] Start: 07-18-2023 Alcohol intake Lifetime non-drinker (finding) [facility] Goals Date Patient Goal Desired Activity /State Functional Status Date Assessment Result Facility 12-19-2022 Functional status Patient at Baseline [facility] Work Phone: Mental Status Date Assessment Result Facility 12-19-2022 Cognitive function Cognitive Sta tus Patient at Baseline [facility] Work Phone: Clinical Notes 11-13-2021 to 07-22-2023 [...] questions or concerns. documented in this encounter [employer] ! 07-18-2023 History of Present illness Narrative Reason [...] deficit disorder) ADHD (attention deficit hyperactivity disorder) ([facility]) Anxiety Bacterial vaginosis Bipolar disorder ([facility]) Club foot Depression ([facility]) Female infertility Heart problem Hormone [...] nursing note reviewed. Exam conducted with a insurance operations rep present. Vitals: Estimated body mass index is [...] Cuong Ortiz DO documented in this encounter [facility] 07-03-2023 History of Present illness Narrative Summary: [facility] Genetic Counseling Note Provider at different site/location than patient. I confirmed the patient is located in the [facility]. Zuleika Wyatt is currently at home and provider at remote site. The patient consented to be treated electronically via this form of telemedicine. This visit was not related to an office visit or procedure in the past 7 days, and in-office follow up is not recommended in the next 24 hours. Video Visit via Real-time Synchronous Audiovisual Provider Location: [facility] MATERNAL- MEDICINE AT [address] [phone] Patient Location: Patient's home Patient Location Director Oracle Database: None Video Visit Consent Statement: I discussed [...] that there are some limitations compared to ganb-ta-gnfs evaluations. We elected to proceed. Name: Zuleika Wyatt : 1990 Date of Visit: 07/03/2023 Email: [email or web address] Preferred contact method: any Partner's Name: Jag Age: 45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
[2023-10-12 14:12] VITALS: BP 122/75; PULSE 78
== END 2023-10-12 14:40 | disposition home or self-care (01) ==
LOC: FBCO 01:48 → FBC 14:05
PROVIDERS: PCP Physician Assistant; Visit Provider Obstetrics & Gynecology
DX: O26.893 Other specified pregnancy related conditions, third trimester (principal)
CPT/HCPCS: 59025

== ENCOUNTER 2023-10-16 07:15 | Outpatient (OUT) | payer MEDICAID, SELFPAY ==
--- OUTSIDE RECORDS SUMMARY | 2023-10-16 07:19 | XMS_ITS | CCD ---
Author Organization [facility] Care Team Providers Care [employer] Machine Feeder Name Role Phone CLARA JAMA Unavailable Unavail able SERENITY MALDONADO Unavailable Unavailable OKSANA CARO Unavailable UnavaNAGA Hull Unavailable Unavailable BARBOSA, LUKE MALIK Unavailable Unavailable PatrickSalomon terrell R Unavailable Unavailable Patrick, Salomon R Unavailable Unavailable Barbosa, Luke Unavailable Unavailable Shekhar, Christian A Unavailable Unavailable Barbosa, Luke Unavailable Unavailable Oneonta, Christian A Unavailable Unavailable Barbosa, Luke Unavailable Unavailable Oneonta, Christian A Unavailable Unavailable Barbosa, Luke Unavailable Unavailable Shekhar, Christian A Unavailable Unavailable Barbosa, Luke Unavailable Unavailable Oneonta, Christian A Unavailable Unavailable Oneonta, Christian A Unavailable Unavailable Barbosa, Luke Unavailable Unavailable Shekhar, Christian A Unavailable Unavailable Barbosa, Luke Unavailable Unavailable Shekhar, Christian A Unavailable Unavailable Oneonta, Christian A Unavailable Unavailable Barbosa, Luke Unavailable Unavailable Barbosa, Luke Unavailable Unavailable Woo, Emiliano Unavailable Unavailable Woo, Emiliano Unavailable Unavailable Patrick, Salomon R Unavailable Unavailable Barbosa, Luke Unavailable Unavailable Barbosa, Luke Unavailable Unavailable Oscar, Jag W Unavailable Unavailable Westwood, Jag W Unavailable Unavailable Oneonta, Christian A Unavailable Unavailable Barbosa, Luke Unavailable Unavailable Oneonta, Christian A Unavailable Unavailable Barbosa, Luke Unavailable [...] Unavail able Oscar, Jag W Unavailable Unavailable Westwood, Jag W Unavailable Unavailable Barbosa, Luke Unavailable Unavailable No Doctor Assigned, Nodr Unavailable Unavail able SavageGamaliel M Unavailable Unavailable Barbosa, Luke Unavailable Unavailable Hannah, Aaron A Unavailable Unavailable Hannah, Aaron A Unavailable Unavailable Patrick, Salomon R Unavailable Unavailable Patrick, Salomon R Unavailable Unavailable Barbosa, Luke Unavailable Unavailable Frank, Juanita Unavailable Unavailable Frank, Juanita Unavailable Unavailable Barbosa, Luke Unavailable Unavailable Oneonta, Christian A Unavailable Unavailable Oneonta, Christian A Unavailable Unavailable Barbosa, Luke Unavailable Unavailable Shekhar, Christian A Unavailable Unavailable Barbosa, Luke Unavailable Unavailable Barbosa, Luke Unavailable Unavailable Westwood, Jag W Unavailable Unavailable Oscar, Jag W Unavailable Unavailable Oneonta, Christian A Unavailable Unavailable Barbosa, Luke Unavailable Unavailable Gamaliel Savage M Unavailable Unavailable Gamaliel Savage M Unavailable Unavailable Barbosa, Luke Unavailable Unavailable Oneonta, Christian A Unavailable Unavailable Barbosa, Luke Unavailable [...] Primary Care Provider SADAF Hess Emergency Provider [phone] SADAF Wyatt Primary Care Provider [facility] Elle E Emergency Provider DIANA .DR ACOSTA Consulting Unavailable [facility] Primary Care Unavailable DIANA ., DR ACOSTA Attending Unavailable DIANA ., DR ACOSTA Admitting Unavailable DIANA ., DR ACOSTA Admitting Unavailable DIANA ., DR ACOSTA Attending Unavailable [facility] Primary Care Unavailable DIANA ., DR ACOSTA Consulting Unavailable SUSI, DR FELECIA Chadwick Consulting Unavailable [facility] Primary Care Unavailable KARASIK ., DR CAMACHO Admitting Unavailabl e KARASIK ., DR CAMACHO Attending Unavailabl e KARASIK ., DR CAMACHO Consulting Unavailabl e WEST, DR GAMALIEL Fischer Consulting Unavailable DIANA ., DR ACOSTA Consulting Unavailable ZIEBER, DR FELECIA Chadwick Consulting Unavailable WILLIAMS ., BARB Admitting Unavailable WILLIAMS ., BARB Attending Unavailable [facility] Primary Care Unavailable WILLIAMS ., BARB Consulting Unavailable DIANA ., DR ACOSTA Admitting Unavailable DIANA ., DR ACOSTA Attending Unavailable [facility] Primary Care Unavailable DIANA ., DR ACOSTA Consulting Unavailable [facility] Primary Care Unavailable KARASIK ., DR CAMACHO Admitting Unavailabl e KARASIK ., DR CAMACHO Attending Unavailabl e KARASIK ., DR CAMACHO Consulting Unavailabl e DIANA ., DR ACOSTA Admitting Unavailable DIANA ., DR ACOSTA Attending Unavailable [facility] Primary Care Unavailable DIANA ., DR ACOSTA Consulting Unavailable ZIEBER, DR FELECIA Chadwick Consulting Unavailable DIANA ., DR ACOSTA Admitting Unavailable DIANA ., DR ACOSTA Attending Unavailable [facility] Primary Care Unavailable DIANA ., DR ACOSTA Consulting Unavailable ZIEBER, DR FELECIA Chadwick Consulting Unavailable PRATIMA, BRODIE Consulting Unavailable DIANA ., DR ACOSTA Consulting Unavailable [facility] Primary Care Unavailable DIANA ., DR ACOSTA Attending Unavailable DIANA ., DR ACOSTA Admitting Unavailable ZIEBER, DR FELECIA Chadwick Consulting Unavailable DIANA ., DR ACOSTA Consulting Unavailable [facility] Primary Care Unavailable DIANA ., DR ACOSTA Attending Unavailable DIANA ., DR ACOSTA Admitting Unavailable DIANA ., DR ACOSTA Admitting Unavailable DIANA ., DR ACOSTA Attending Unavailable [facility] Primary Care Unavailable DIANA ., DR ACOSTA Consulting Unavailable ZIEBER, DR FELECIA Chadwick Consulting Unavailable DIANA ., DR ACOSTA Admitting Unavailable DIANA ., DR ACOSTA Attending Unavailable [facility] Primary Care Unavailable WEST, DR GAMALIEL Fischer Consulting Unavailable DIANA ., DR ACOSTA Consulting Unavailable [facility] Primary Care Unavailable KARASIK ., DR CAMACHO Admitting Unavailabl e KARASIK ., DR CAMACHO Attending Unavailabl e KARASIK ., DR CAMACHO Consulting Unavailabl e DIANA ., DR ACOSTA Consulting Unavailable ZIEBER, DR FELECIA Chadwick Consulting Unavailable DIANA ., DR ACOSTA Admitting Unavailable DIANA ., DR ACOSTA Attending Unavailable [facility] Primary Care Unavailable WEST, DR GAMALIEL Fischer Consulting Unavailable DIANA ., DR ACOSTA Consulting Unavailable DIANA ., DR ACOSTA Admitting Unavailable DIANA ., DR ACOSTA Attending Unavailable [facility] Primary Care Unavailable DIANA ., DR ACOSTA Consulting Unavailable DIANA ., DR ACOSTA Admitting Unavailable DIANA ., DR ACOSTA Attending Unavailable [facility] Primary Care Unavailable DIANA ., DR ACOSTA Consulting Unavailable ZIEBER, DR FELECIA Chadwick Consulting Unavailable DIANA ., DR ACOSTA Admitting Unavailable DIANA ., DR ACOSTA Attending Unavailable [facility] Primary Care Unavailable DIANA ., DR ACOSTA Consulting Unavailable DIANA ., DR ACOSTA Admitting Unavailable DIANA ., DR ACOSTA Attending Unavailable [facility] Primary Care Unavailable DIANA ., DR ACOSTA Consulting Unavailable [facility] Primary Care Unavailable DIANA ., DR ACOSTA Attending Unavailable DIANA ., DR ACOSTA Admitting Unavailable DIANA ., DR ACOSTA Admitting Unavailable DIANA ., DR ACOSTA Attending Unavailable [facility] Primary Care Unavailable DIANA ., DR ACOSTA Admitting Unavailable DIANA ., DR ACOSTA Attending Unavailable [facility] Primary Care Unavailable KARASIK ., DR CAMACHO Consulting Unavailabl e DIANA ., DR ACOSTA Consulting Unavailable DIANA ., DR ACOSTA Procedure Practitioner Unavail able ORLANDO PRASAD Consulting Unavailable JACQUES FLETCHER Consulting Unavailable DIANA ., DR ACOSTA Admitting Unavailable DIANA ., DR ACOSTA Attending Unavailable [facility] Primary Care Unavailable KARASIK ., DR CAMACHO Consulting Unavailabl e ZIEBER, DR FELECIA Chadwick Consulting Unavailable SADAF Wyatt Primary Care Provider MD Farhan Jean Attending Provider Poe, DO Oscar Emergency Provider Itzkowitz, DO Arden Admit Provider Itzkocece, DO Arden Attending Provider [phone] FRED Ventura Other Provider UnavailMD Juan Edwards Other Provider BRISA MoniqueC Ailny Other Provider MD Jacques Valerio Other Provider MD Edith Urias Other Provider [phone] SADAF Wyatt Primary Care Provider [place], ADVERTISING ASSOCIATE-BC Elle E Emergency Provider BRANNON Valencia Emergency Provider Andie Wyatt PA-C Primary Care Provider [phone] CUONG ORTIZ Referring Unavailable ANDIE WYATT Primary [...] [BEES] Propensity to adverse reactions (disorder) 8 [facility] Repository (2 sources) Mold spore; Translations: [MOLD SPORES] Propensity to adverse reactions (disorder) 8 [facility] Repository (18 sources) Penicillins; Translations: [PENICILLINS] Propensity to adverse reactions to drug (disorder) [address] [facility] (12 sources) Sulfonamides (Antibiotic); Translations: [SULFA (SULFONAMIDE ANTIBIOTICS)] Propensity to adverse reactions to drug (disorder) 8 [facility] Repository (1 source) Bee/Wasp/Ant venom; Translations: [Bee Stings] Propensity to adverse reactions to drug (disorder) [facility] Repository (1 source) mold extract; Translations: [Mold] Drug Allergy [facility] Repository (1 source) Sulfonamides (Antibiotic); Translations: [sulfa drugs] Propensity to adverse reactions to drug (disorder) [facility] Repository (4 sources) bee venom; Translations: [BEE VENOM] Propensity to adverse reactions to drug (disorder) 8 [facility] Repository (1 source) OTHER; Translations: [OTHER] Propensity to adverse reactions to food (disorder) 8 [facility] Repository (1 source) MOLDS & SMUTS; Translations: [MOLDS & SMUTS] Propensity to adverse reactions to drug (disorder) 8 [facility] Repository (4 sources) SULFA ANTIBIOTICS; Translations: [SULFA ANTIBIOTICS] Propensity to adverse reactions to drug (disorder) [address] [facility] Repository (1 source) Sulfonamides (Antibiotic) Drug allergy (disorder) 4 [facility] Repository (4 sources) Bee Venom Protein (Honey Bee); Translations: [BEE VENOM PROTEIN (HONEY BEE)] Propensity to adverse reactions to drug 2 [facility] (1 source) Penicillin Drug Allergy 2 [facility] Repository (1 source) Sulfacetamide Drug Allergy 2 [facility] Repository Medications Current Medications Medication Drug [...] mouth in the morning. 0 02/27/2023 Active [place] (No Known Home Meds) (2 sources) Start: 12-18-2022 [place] (No Known Home Meds) Active December 18, [...] (-1 ORAL) Take by mouth. 0 Active Lyrvrojh-Zmd-Uy-FA (, w/Iron & FA,) 27-0.8 MG tablet (3 sources) Ixucynwi-Rbh-Kq-FA (, w/Iron & FA,) 27-0.8 MG tablet 1 (one) time each day at the same time. 0 Active DZ-Gra-YJ-Dahinda-3 ( Gummies/DHA & FA) 0.4-32.5 MG chewable tablet (3 sources) Start: 07-09-2023 End: 08-08-2023 EV-Yrs-AR-Dahinda-3 ( Gummies/DHA & FA) 0.4-32.5 MG chewable [...] Onset: 11-30-2017 Unclassified (3 sources) M/C OTH MACHINE DEBURRER 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 NA/UNS; Translations: [M/C OTH MACHINE DEBURRER 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 NA/UNS] Onset: 07-05-2022 Unclassified (1 [...] 12-12-2021 Episodic Unclassified (1 source) M/C OTH MACHINE DEBURRER 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 NA/UNS; Translations: [M/C OTH MACHINE DEBURRER 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 NA/UNS] Onset: 07-02-2022 Results Test Name Value Interpretation Reference Range Facility AFP, SERUM, OPEN SPINA BIFID Aon 07-20-2023 AFP MOM 1.21 . [facility] AFP VALUE 70.2 ng/mL . [facility] COMMENT: Comment . [facility] Comment on above: Alma Chaudhary , Ph.D., [facility] Director References: Available Upon Request. Multiples Of Median Cutoffs For AFP Elevations Briscoe 2.5 Black 2.8 IDD 2.0 Twins 4.5 Abbreviation Definitions IDD - Insulin Dep Diabetes OSBR - Open Spina Bifida Risk For further inquiries contact [employer] [facility] at [phone]. This test was developed and its performance characteristics determined by [employer]. It has not been cleared or approved by the Food and Drug Administration. Performed at: [facility] [place], [place] [id number] Rn Occupational Health: Oz Harkins [facility], Phone: [phone] GEST. AGE ON COLLECTION DATE 20.4 . weeks [facility] GESTAT. AGE BASED ON LMP . [facility] Comment on above: Recalculations are n ot recommended when gestational dating by LMP and ultrasound are within 10 days. INSULIN DEP DIABETES No . [facility] INTERPRETATION Comment . [facility] Comment on above: Interpretation: Scre en [...] Customer Services to discuss available options. The [employer] recommends amniocentesis be offered to women age 35 and older. [age] [facility] MULTIPLE GESTATION No . [facility] OSBR RISK 1 [place] 6301 . [facility] RACE . [facility] RESULTS Report . [facility] TEST RESULTS: Negative . [facility] WEIGHT 159 . lbs [facility] N N LMP [id number] 3 16 N 1 Y 159 N N N N White/ [facility] Urinalysis macro (dipstick) panel (U)on 07-18-2023 Bilirubin, UA Negative Negative - 4(70) +++ mg/dL [facility] Blood, UA Negative Negative - 50 Rakesh/mcL [facility] Clarity, UA Clear [facility] Color, UA Yellow [facility] Glucose, UA Negative Negative - 2000(110) ++++ mg/dL [facility] Interpretation and review of laboratory results Normal [facility] Ketones, UA Negative Negative - 160(16) ++++ mg/dL [facility] Leukocytes, UA Negative Negative - 500+++ Matti/mcL [facility] Nitrite, UA Negative Negative - Positive [facility] pH, UA 5.5 5 - 9 [facility] Protein, UA Negative Negative - 2000(20) ++++ mg/dL [facility] Spec Grav, UA 1.020 1 - 1.03 [facility] Urobilinogen, UA 1.0 0.2 - 12 mg/dL [facility] ABO/Rh Retypeon 12-19-2022 ABO/RH Recheck Result Positive Normal [facility] Comment on above: Result Comment: PERF ORMED BY: [facility] [address] [place] [address] PATHOLOGIST CONVERTING TECHNICIAN MALVIN MEDLEY M.D. Amphetamine Screen Ql (U)Ord ered By: Oscar Poe on 12-19-2022 Amphetamines Ql (U) Negative Negative [facility] Amylaseon 12-19-2022 Amylase [Catalytic activity/Vol] 35 U/L Normal 29-103 [facility] Comment on above: Performed By: #### C BC, CREAT, GLU, LYTES, AST, ETOH, BARB, LIPASE, CK, BUN ####[facility] Aspartate Amino Transferaseo n 12-19-2022 AST [Catalytic activity/Vol] 26 U/L Normal 13-39 [facility] Comment on above: Performed By: #### C BC, CREAT, GLU, LYTES, AST, ETOH, BARB, LIPASE, CK, BUN ####[place] [id number] [address] Automated erythrocytes count in urine sediment (number/area)Ordered By: Oscar Poe on 12-19-2022 RBC Auto (Urine sed) [#/Area] 5-9 [HPF] 0-4 [facility] Automated leukocytes count i n urine sediment (number/area)Ordered By: Oscar Poe on 12-19-2022 WBC Auto (Urine sed) [#/Area] 10-19 [HPF] 0-4 [facility] Barbiturates [Presence] in U rine by Screen methodOrdered By: Oscar Poe on 12-19-2022 Barbiturates Screen Ql (U) Negative Negative [facility] Benzodiazepines Screen Ql (U )Ordered By: Oscar Poe on 12-19-2022 Benzodiazepines Ql (U) Negative Negative [facility] Benzoylecgonine [Presence] i n Urine by Screen methodOrdered By: Oscar Poe on 12-19-2022 Benzoylecgonine Screen Ql (U) Negative Negative [facility] Bilirubin Test strip Ql (U)O rdered By: Oscar Poe on 12-19-2022 Bilirubin Ql (U) Negative Negative [facility] Blood Urea Nitrogenon 2022 Urea nitrogen [Mass/Vol] 21 mg/dL Normal 7-25 [facility] Comment on above: Performed By: #### C BC, CREAT, GLU, LYTES, AST, ETOH, BARB, LIPASE, CK, BUN ####[facility] cervical spine wo conon 0 12-19-2022 CT cervical spine wo con [facility] [address] [place] [address] CT Scan Report Signed Patient: Zuleika Wyatt MR#: [id number] : 1990 Acct:[id number] Age/Sex: 32 / F ADM Date: 12/19/22 Loc: 4 Room: [address] [place] [address] Type: ADM INOo Attending Dr: Arden Orozco DO Copies to: DO Arden Jefferson DO Ordering Provider: Oscar Poe DO Date of Service: 12/18/22 CT/CT cervical spine wo con: f ([id number]) CT/CT head/brain wo con: f CT BRAIN [...] FRACTURE Impression dictated by: Rah Pimentel Jr., Sammie12/19/2022 10:25 AM Dictation Location: [place] [address] Transcribed By: DONTE 12/19/22 1025 Dictated By: Rah Pimentel Jr, DO 12/19/22 1016 Signed By: 12/19/22 [address] [facility] [address] head/brain wo conon 12-19 CT head/brain wo con [facility] [place] [place] [address] CT Scan Report Signed Patient: Zuleika Wyatt MR#: [id number] : 1990 Acct:[id number] Age/Sex: 32 / F ADM Date: 12/19/22 Loc: Room: [address] [place] [address] Type: DIS INOo Attending Dr: Arden Orozco [...] Pimentel Jr., D.O.12/19/2022 3:28 PM Dictation Location: [place] [address] Transcribed By: [facility] 12/19/22 1528 Dictated By: Rah Pimentel Jr, DO 12/19/22 1524 Signed By: 12/19/22 [address] [facility] [address] lumbar spine wo conon CT lumbar spine wo [facility] [place] [address] CT Scan Report Signed Patient: Zuleika Wyatt MR#: [id number] : 1990 Acct:[id number] Age/Sex: 32 / F ADM Date: 12/19/22 Loc: Room: [address] [place] [address] Type: ADM INOo Attending Dr: Arden Orozco DO Copies to: DO Arden Jefferson DO Ordering Provider: Oscar Poe DO Date of Service: 12/18/22 CT/CT thoracic spine wo con: f ([id number]) CT/CT lumbar spine wo con: f CT [...] narrowing or hypertrophy. The ribs within the lrtma-pb-auiw appear intact. No paraspinal soft tissue abnormalities are present. The ascending aorta is mildly ectatic. The heart is not fully imaged though it is at least borderline prominent. There is no consolidation, pleural effusion or pneumothorax within the lvami-fv-gkul. No lumbar compression fractures are identified. There [...] The intra-abdominal and pelvic structures within the dtsyu-si-wvhp show no contributory findings. CT/CT thoracic spine wo con IMPRESSION: MILD THORACIC SCOLIOSIS. NO ACUTE BONY INJURY INVOLVING THE THORACIC OR LUMBAR SPINE. Impression dictated by: Adela Mahan M.D.12/19/2022 10:36 AM Dictation Location: [place] [address] Transcribed By: [facility] 12/19/22 1036 Dictated By: Adela Mahan MD 12/19/22 1026 Signed By: 12/19/22 1036 Normal [facility] Cannabinoids [Presence] in U rine by Screen methodOrdered By: Oscar Poe on 12-19-2022 Cannabinoids Screen Ql (U) Positive Negative [facility] Comment on above: These are unconfirme d results and should not be used for legal purposes. Drug Cut-Off Concentration: AMPH 1000 ng/mL SEEMA 200 ng/mL LAZ 200 ng/mL COCM 300 ng/mL OP 300 ng/mL PCP 25 ng/mL THC 20 ng/mL Color Auto (U)Ordered By: Fernando Poe on 12-19-2022 Color (U) Yellow Yellow [facility] Complete Blood Count Auto Di ffon 12-19-2022 Basophils (Bld) [#/Vol] 0.1 10*3/uL Normal 0.0-0.2 [facility] Comment on above: Result Comment: PERF ORMED BY: [facility] [address] [place] [address] PATHOLOGIST CONVERTING TECHNICIAN MALVIN MEDLEY M.D. Performed By: #### C BC, CREAT, GLU, LYTES, AST, ETOH, BARB, LIPASE, CK, BUN ####[address] Basophils/100 WBC (Bld) 0.7 % Normal . [facility] Comment on above: Performed By: #### C BC, CREAT, GLU, LYTES, AST, ETOH, BARB, LIPASE, CK, BUN ####[address] Eosinophils (Bld) [#/Vol] 0.0 10*3/uL Normal 0.0-0.45 [facility] Comment on above: Performed By: #### C BC, CREAT, GLU, LYTES, AST, ETOH, BARB, LIPASE, CK, BUN ####[address] Eosinophils/100 WBC (Bld) 0.2 % Normal . [facility] Comment on above: Performed By: #### C BC, CREAT, GLU, LYTES, AST, ETOH, BARB, LIPASE, CK, BUN ####[address] Erythrocyte distribution width (RBC) [Ratio] 14.4 % Normal 11.9-15.3 [facility] Comment on above: Performed By: #### C BC, CREAT, GLU, LYTES, AST, ETOH, BARB, LIPASE, CK, BUN ####[address] Hematocrit (Bld) [Volume fraction] 36.2 % Normal 34.0-46.4 [facility] Comment on above: Performed By: #### C BC, CREAT, GLU, LYTES, AST, ETOH, BARB, LIPASE, CK, BUN ####[address] Hemoglobin (Bld) [Mass/Vol] 11.9 g/dL Normal 11.8-15.4 [facility] Comment on above: Performed By: #### C BC, CREAT, GLU, LYTES, AST, ETOH, BARB, LIPASE, CK, BUN ####[address] Lymphocytes (Bld) [#/Vol] 2.2 10*3/uL Normal 1.00-4.8 [facility] Comment on above: Performed By: #### C BC, CREAT, GLU, LYTES, AST, ETOH, BARB, LIPASE, CK, BUN ####[address] Lymphocytes/100 WBC (Bld) 21.8 % Normal . [facility] Comment on above: Performed By: #### C BC, CREAT, GLU, LYTES, AST, ETOH, BARB, LIPASE, CK, BUN ####[address] MCH (RBC) [Entitic mass] 26.9 pg Normal 24.7-34.3 [facility] Comment on above: Performed By: #### C BC, CREAT, GLU, LYTES, AST, ETOH, BARB, LIPASE, CK, BUN ####[address] MCV (RBC) [Entitic vol] 82.1 fL Normal 80-100 [facility] Comment on above: Performed By: #### C BC, CREAT, GLU, LYTES, AST, ETOH, BARB, LIPASE, CK, BUN ####[address] Mean Corpuscular HGB Conc 32.8 g/dL Normal 32.0-35.0 [facility] Comment on above: Performed By: #### C BC, CREAT, GLU, LYTES, AST, ETOH, BARB, LIPASE, CK, BUN ####[address] Monocytes (Bld) [#/Vol] 0.8 10*3/uL Normal 0.0-0.8 [facility] Comment on above: Performed By: #### C BC, CREAT, GLU, LYTES, AST, ETOH, BARB, LIPASE, CK, BUN ####[address] Monocytes/100 WBC (Bld) 22.19 % High 0.00-20.00 [facility] Comment on above: Result Comment: For adults in ED, MDW > 20.0 may be associated with a higher risk of sepsis during the first 12 hrs of hospital admission Performed By: #### C BC, CREAT, GLU, LYTES, AST, ETOH, BARB, LIPASE, CK, BUN ####[address] Monocytes/100 WBC (Bld) 7.4 % Normal . [facility] Comment on above: Performed By: #### C BC, CREAT, GLU, LYTES, AST, ETOH, BARB, LIPASE, CK, BUN ####[address] Neutrophils (Bld) [#/Vol] 7.2 10*3/uL Normal 1.8-7.7 [facility] Comment on above: Performed By: #### C BC, CREAT, GLU, LYTES, AST, ETOH, BARB, LIPASE, CK, BUN ####[address] Neutrophils/100 WBC (Bld) 69.9 % Normal . [facility] Comment on above: Performed By: #### C BC, CREAT, GLU, LYTES, AST, ETOH, BARB, LIPASE, CK, BUN ####[address] NRBC% 0.1 /100{WBC} Normal 0-0.5 [facility] Comment on above: Performed By: #### C BC, CREAT, GLU, LYTES, AST, ETOH, BARB, LIPASE, CK, BUN ####[address] Platelet mean volume (Bld) [Entitic vol] 8.1 fL Normal 6.3-10.7 [facility] Comment on above: Performed By: #### C BC, CREAT, GLU, LYTES, AST, ETOH, BARB, LIPASE, CK, BUN ####[address] Platelets (Bld) [#/Vol] 223 10*3/uL Normal 150-450 [facility] Comment on above: Performed By: #### C BC, CREAT, GLU, LYTES, AST, ETOH, BARB, LIPASE, CK, BUN ####[address] RBC (Bld) [#/Vol] 4.42 10*6/uL Normal 3.60-5.00 [facility] Comment on above: Performed By: #### C BC, CREAT, GLU, LYTES, AST, ETOH, BARB, LIPASE, CK, BUN ####[address] WBC (Bld) [#/Vol] 10.3 10*3/uL Normal 3.8-11.6 [facility] Comment on above: Performed By: #### C BC, CREAT, GLU, LYTES, AST, ETOH, BARB, LIPASE, CK, BUN ####[address] Creatine Kinaseon 12-19-2022 CK [Catalytic activity/Vol] 50 U/L Normal 30-223 [facility] Comment on above: Result Comment: PERF ORMED BY: [facility] [address] [address] PATHOLOGIST CONVERTING TECHNICIAN MALVIN MEDLEY M.D. Performed By: #### C BC, CREAT, GLU, LYTES, AST, ETOH, BARB, LIPASE, CK, BUN ####[address] Creatinineon 12-19-2022 Creatinine [Mass/Vol] 0.84 mg/dL Normal 0.60-1.20 [facility] Comment on above: Performed By: #### C BC, CREAT, GLU, LYTES, AST, ETOH, BARB, LIPASE, CK, BUN ####[facility] [place] [address] [place] Creatinine Clr Calc Pharmacy 98.76 [facility] Comment on above: Performed By: #### C BC, CREAT, GLU, LYTES, AST, ETOH, BARB, LIPASE, CK, BUN ####[facility] [address] GFR/1.73 sq M.predicted MDRD (S/P/Bld) [Vol rate/Area] mL/min/{1.73_m2} [facility] Comment on above: Performed By: #### C BC, CREAT, GLU, LYTES, AST, ETOH, BARB, LIPASE, CK, BUN ####[facility] Dipstick and Microscopicon 0 12-19-2022 Appearance (U) Clear Normal Clear [facility] Comment on above: Order Comment: Name Collection Type:: Clean-Voided Midstream Performed By: #### U RDS, UHCG, CUU, ADDONUAPLUS #### [facility] [address] [place] [address] [place] Bacteria,Urine None Seen Normal None Seen [facility] Comment on above: Order Comment: Name Collection Type:: Clean-Voided Midstream Performed By: #### U RDS, UHCG, CUU, ADDONUAPLUS #### [facility] [address] [place] [address] [place] Bilirubin,Urine Negative Normal Negative [facility] Comment on above: Order Comment: Name Collection Type:: Clean-Voided Midstream Performed By: #### U RDS, UHCG, CUU, ADDONUAPLUS #### [facility] [address] [place] [address] [place] Color (U) Yellow Normal Yellow [facility] Comment on above: Order Comment: Name Collection Type:: Clean-Voided Midstream Performed By: #### U RDS, UHCG, CUU, ADDONUAPLUS #### [facility] [address] [place] [address] [place] Glucose Ql (U) Normal Normal Normal [facility] Comment on above: Order Comment: Name Collection Type:: Clean-Voided Midstream Performed By: #### U RDS, UHCG, CUU, ADDONUAPLUS #### [facility] [address] [place] [address] Hyaline Casts,Urine 0-8 Normal 0-8 [facility] Comment on above: Order Comment: Name Collection Type:: Clean-Voided Midstream Performed By: #### U RDS, UHCG, CUU, ADDONUAPLUS #### [facility] [address] [place] [address] Ketones Ql (U) 1+ High Negative [facility] Comment on above: Order Comment: Name Collection Type:: Clean-Voided Midstream Performed By: #### U RDS, UHCG, CUU, ADDONUAPLUS #### [facility] [address] [place] [address] Leukocyte esterase Test strip Ql (U) 2+ High Negative [facility] Comment on above: Order Comment: Name Collection Type:: Clean-Voided Midstream Performed By: #### U RDS, UHCG, CUU, ADDONUAPLUS #### [facility] [address] [place] [address] [place] Nitrite,Urine Negative Normal Negative [facility] Comment on above: Order Comment: Name Collection Type:: Clean-Voided Midstream Performed By: #### U RDS, UHCG, CUU, ADDONUAPLUS #### [facility] [address] [place] [address] [place] Occult Blood,Urine Negative Normal Negative [facility] Comment on above: Order Comment: Name Collection Type:: Clean-Voided Midstream Performed By: #### U RDS, UHCG, CUU, ADDONUAPLUS #### [facility] [address] [place] [address] [place] pH (U) 5.5 [pH] Normal 5.0-9.0 [facility] Comment on above: Order Comment: Name Collection Type:: Clean-Voided Midstream Performed By: #### U RDS, UHCG, CUU, ADDONUAPLUS #### [facility] [address] [place] [address] [place] Protein,Urine Negative Normal Negative [facility] Comment on above: Order Comment: Name Collection Type:: Clean-Voided Midstream Performed By: #### U RDS, UHCG, CUU, ADDONUAPLUS #### [facility] [address] [place] [address] RBC,Urine 5-9 High 0-4 [facility] Comment on above: Order Comment: Name Collection Type:: Clean-Voided Midstream Performed By: #### U RDS, UHCG, CUU, ADDONUAPLUS #### [address] Specificy Colt,Urine 1.025 Normal 1.001-1.03 0 [facility] Comment on above: Order Comment: Name Collection Type:: Clean-Voided Midstream Performed By: #### U RDS, UHCG, CUU, ADDONUAPLUS #### [facility] [address] [place] [address] Squamous Epithelial Cell,Urine 3-4 High 0-2 [facility] Comment on above: Order Comment: Name Collection Type:: Clean-Voided Midstream Performed By: #### U RDS, UHCG, CUU, ADDONUAPLUS #### [facility] [address] [place] [address] Urobilinogen,Urine Normal Normal Normal [facility] Comment on above: Order Comment: Name Collection Type:: Clean-Voided Midstream Performed By: #### U RDS, UHCG, CUU, ADDONUAPLUS #### [facility] [address] [place] [address] [place] WBC,Urine 10-19 High 0-4 [facility] Comment on above: Order Comment: Name Collection Type:: Clean-Voided Midstream Performed By: #### U RDS, UHCG, CUU, ADDONUAPLUS #### [facility] [address] [place] [address] Drug Screen,Urineon 12-20-19 Amphetamine Screen,Urine Negative Normal Negative [facility] Comment on above: Performed By: #### U RDS, UHCG, CUU, ADDONUAPLUS #### [address] Barbiturate Screen,Urine Negative Normal Negative [facility] Comment on above: Performed By: #### U RDS, UHCG, CUU, ADDONUAPLUS #### [address] Benzodiazepines Screen,Urine Negative Normal Negative [facility] Comment on above: Performed By: #### U RDS, UHCG, CUU, ADDONUAPLUS #### [address] Cannabinoid Screen,Urine Positive High Negative [facility] Comment on above: Result Comment: Thes e are unconfirmed results and should not be used for legal purposes. Drug Cut-Off Concentration: AMPH 1000 ng/mL SEEMA 200 ng/mL LAZ 200 ng/mL COCM 300 ng/mL OP 300 ng/mL PCP 25 ng/mL THC 20 ng/mL PERFORMED BY: [place] [address] PATHOLOGIST CONVERTING TECHNICIAN MALVIN MEDLEY M.D. Performed By: #### U RDS, UHCG, CUU, ADDONUAPLUS #### [address] Cocaine Screen,Urine Negative Normal Negative [facility] Comment on above: Performed By: #### U RDS, UHCG, CUU, ADDONUAPLUS #### [address] Opiate Screen,Urine Negative Normal Negative [facility] Comment on above: Performed By: #### U RDS, UHCG, CUU, ADDONUAPLUS #### [address] Phencyclidine Screen,Urine Negative Normal Negative [facility] Comment on above: Performed By: #### U RDS, UHCG, CUU, ADDONUAPLUS #### [address] ECG 12 lead ECGon 12-19-2022 ECG 12 lead ECG [facility] [place] [id number] Electrocardiograph Report Signed Patient: Zuleika Wyatt MR#: [id number] : 1990 Acct:[id number] Age/Sex: 32 / F ADM Date: 12/19/22 Loc: Room: [address] [place] [address] Type: DIS INOo Attending Dr: Arden Orozco [...] ECGs available Confirmed by OSCAR POE DO ([id number]) on 12/19/2022 10:18:39 PM Referred By: Electronically Signed By:OSCAR POE DO Transcribed By: MUS Signed By Oscar Poe DO 12/191 Normal [facility] Electrolyteson 12-19-2022 Anion gap [Moles/Vol] 14.5 mmol/L Normal 6.0-15.0 [facility] Comment on above: Performed By: #### C BC, CREAT, GLU, LYTES, AST, ETOH, BARB, LIPASE, CK, BUN ####[facility] [id number] [place] [id number] [facility] Chloride [Moles/Vol] 105 mmol/L Normal 98-107 [facility] Comment on above: Performed By: #### C BC, CREAT, GLU, LYTES, AST, ETOH, BARB, LIPASE, CK, BUN ####[facility] [place] [address] [facility] CO2 [Moles/Vol] 20.0 mmol/L Low 21.0-31.0 [facility] Comment on above: Performed By: #### C BC, CREAT, GLU, LYTES, AST, ETOH, BARB, LIPASE, CK, BUN ####[place] [id number] [address] Potassium [Moles/Vol] 3.5 mmol/L Normal 3.5-5.1 [facility] Comment on above: Performed By: #### C BC, CREAT, GLU, LYTES, AST, ETOH, BARB, LIPASE, CK, BUN ####[address] Sodium [Moles/Vol] 136 mmol/L Normal 136-145 [facility] Comment on above: Performed By: #### C BC, CREAT, GLU, LYTES, AST, ETOH, BARB, LIPASE, CK, BUN ####[address] Ethyl Alcohol Profileon Ethanol [Mass/Vol] mg/dL Normal [facility] Comment on above: Performed By: #### C BC, CREAT, GLU, LYTES, AST, ETOH, BARB, LIPASE, CK, BUN ####[address] Percent Ethanol Not performed Normal [facility] Comment on above: Result Comment: PERF ORMED BY: [facility] [address] [place] [address] PATHOLOGIST CONVERTING TECHNICIAN MALVIN MEDLEY M.D. Performed By: #### C BC, CREAT, GLU, LYTES, AST, ETOH, BARB, LIPASE, CK, BUN ####[place] [id number] [facility] Glucoseon 12-19-2022 Glucose [Mass/Vol] 93 mg/dL Normal 70-100 [facility] Comment on above: Result Comment: [place] Glucose Reference Range is dependent on time and content of last meal. Glucose of more than 200 mg/dL in a nonstressed, ambulatory subject supports the diagnosis of Diabetes Mellitus. ADA recommended reference range Performed By: #### C BC, CREAT, GLU, LYTES, AST, ETOH, BARB, LIPASE, CK, BUN ####[facility] [id number] HCG ( test) IA.rapi d Ql (U)Ordered By: Oscar Poe on 12-19-2022 HCG ( test) Ql (U) Negative [facility] HCG,Qualitative Serumon 07-0 HCG,Qualitative Serum Negative Normal [facility] Comment on above: Result Comment: PERF ORMED BY: [place] [address] PATHOLOGIST CONVERTING TECHNICIAN MALVIN MEDLEY M.D. Performed By: #### H CGQUAL #### [facility] [address] HCG,Urineon 12-19-2022 Beta HCG ( test) Ql (U) Negative Normal [facility] Comment on above: Order Comment: Name Collection Type:: Clean-Voided Midstream Result Comment: PERF ORMED BY: [place] [address] PATHOLOGIST CONVERTING TECHNICIAN MALVIN MEDLEY M.D. Performed By: #### U RDS, UHCG, CUU, ADDONUAPLUS #### [address] Ketones Auto test strip (U) [Mass/Vol]Ordered By: Oscar Poe on 12-19-2022 Ketones (U) [Mass/Vol] 1+ Negative [facility] Laboratory - UrinalysisOrder ed By: Oscar Poe on 12-19-2022 Hyaline casts LM Ql (Urine sed) 0-8 [LPF] 0-8 [facility] Lipaseon 12-19-2022 Lipase [Catalytic activity/Vol] 29.0 U/L Normal 11.0-82.0 [facility] Comment on above: Result Comment: PERF ORMED BY: [facility] [address] [place] [address] PATHOLOGIST CONVERTING TECHNICIAN MALVIN MEDLEY M.D. Performed By: #### C BC, CREAT, GLU, LYTES, AST, ETOH, BARB, LIPASE, CK, BUN ####[facility] [id number] [place] [address] [facility] Nitrite Test strip Ql (U)Ord ered By: Oscar Poe on 12-19-2022 Nitrite Ql (U) Negative Negative [facility] Opiates [Presence] in Urine by Screen methodOrdered By: Oscar Poe on 12-19-2022 Opiates Screen Ql (U) Negative Negative [facility] Phencyclidine Screen Ql (U)O rdered By: Oscar Poe on 12-19-2022 Phencyclidine Ql (U) Negative Negative [facility] Protein Auto test strip (U) [Mass/Vol]Ordered By: Oscar Poe on 12-19-2022 Protein (U) [Mass/Vol] Negative Negative [facility] Specific gravity Auto test s trip (U) [Rel density]Ordered By: Oscar Poe on 12-19-2022 Specific gravity (U) [Rel density] 1.025 1.001-1.03 0 [facility] Squamous epithelial cells de tection in urine sediment by light microscopyOrdered By: Oscar Poe on 12-19-2022 Epithelial cells.squamous LM Ql (Urine sed) 3-4 [HPF] 0-2 [facility] Type and Screenon 12-19-2022 ABO and Rh group Nom (Bld) Blood group A Rh(D) positive Normal [facility] Comment on above: Result Comment: PERF ORMED BY: [facility] [address] [place] [address] PATHOLOGIST CONVERTING TECHNICIAN MALVIN MEDLEY M.D. Urine Cultureon 12-19-2022 Bacteria identified Cx Nom (U) >100,000 colonies/ml mixed bacterial skin contaminants 2 Days PERFORMED BY: [facility] [address] [facility] [place] [address] PATHOLOGIST CONVERTING TECHNICIAN MALVIN MEDLEY M.D. [facility] Comment on above: Performed By: #### U RDS, UHCG, CUU, ADDONUAPLUS ####[facility] [id number] [place] [address] [facility] Urine bacteria detection by automated methodOrdered By: Oscar Poe on 12-19-2022 Bacteria Auto Ql (U) None seen None Seen [facility] Urine clarity by refractomet ry automatedOrdered By: Oscar Poe on 12-19-2022 Clarity Refractometry automated (U) Clear Clear [facility] Urine culture routineOrdered By: Oscar Poe on 12-19-2022 Bacteria identified Cx Nom (U) 2 Days [facility] Urine glucose measurement by automated test strip (mass/volume)Ordered By: Oscar Poe on 12-19-2022 Glucose Auto test strip (U) [Mass/Vol] Normal mg/dL Normal [facility] Urine hemoglobin detection b y automated test stripOrdered By: Oscar Poe on 12-19-2022 Hemoglobin Auto test strip Ql (U) Negative Negative [facility] Urine leukocyte esterase det ection by automated test stripOrdered By: Oscar Poe on 12-19-2022 Leukocyte esterase Auto test strip Ql (U) 2+ Negative [facility] Urobilinogen Auto test strip (U) [Mass/Vol]Ordered By: Oscar Poe on 12-19-2022 Urobilinogen (U) [Mass/Vol] Normal mg/dL Normal [facility] XR knee BI 2Von 12-19-2022 XR knee BI 2V [place] [address] XRay Report Signed Patient: Zuleika Wyatt MR#: [id number] : 1990 Acct:[id number] Age/Sex: 32 / F ADM Date: 12/19/22 Loc: Room: [address] [place] [address] Type: ADM INOo Attending Dr: Arden Orozco DO Copies to: DO Arden Jefferson DO Ordering Provider: Oscar Poe DO Date of Service: 12/18/22 XR/XR knee BI 2V: f ([id number]) XR/XR chest 1V portable: TRAUMATIC INJURY ([id number]) XR/XR pelvis 1-2V: f ([id number]) XR/XR foot LT 2V: f CLINICAL DATA: [...] Adela Mahan M.D.12/19/2022 10:41 AM Dictation Location: [place] [address] Transcribed By: [facility] 12/19/22 1041 Dictated By: Adela Mahan MD 12/19/22 1036 Signed By: 12/19/22 1041 Normal [facility] pH Auto test strip (U)Ordere d By: Oscar Poe on 12-19-2022 pH (U) 5.5 [pH] 5.0-9.0 [facility] Amylase [Enzymatic activity/ volume] in Serum or PlasmaOrdered By: Oscar Poe on 12-18-2022 Amylase [Catalytic activity/Vol] 35 U/L 29-103 [facility] Aspartate aminotransferase [ Enzymatic activity/volume] in Serum or PlasmaOrdered By: Oscar Poe on 12-18-2022 AST [Catalytic activity/Vol] 26 U/L 13-39 [facility] Basophils Auto (Bld) [#/Vol] Ordered By: Oscar Poe on 12-18-2022 Basophils (Bld) [#/Vol] 0.1 10*3/uL 0.0-0.2 [facility] Basophils/100 WBC Auto (Bld) Ordered By: Oscar Poe on 12-18-2022 Basophils/100 WBC (Bld) 0.7 % . [facility] Carbon dioxide, total [Moles /volume] in Serum or PlasmaOrdered By: Oscar Poe on 12-18-2022 CO2 [Moles/Vol] 20.0 mmol/L 21.0-31.0 [facility] Chloride [Moles/volume] in S gwendolyn or PlasmaOrdered By: Oscar Poe on 12-18-2022 Chloride [Moles/Vol] 105 mmol/L 98-107 [facility] Choriogonadotropin.beta subu nit [Units/volume] in Serum or PlasmaOrdered By: Oscar Poe on 12-18-2022 HCG.beta subunit Qn Negative [facility] Creatine kinase [Enzymatic a ctivity/volume] in Serum or PlasmaOrdered By: Oscar Poe on 12-18-2022 CK [Catalytic activity/Vol] 50 U/L 30-223 [facility] Creatinine [Mass/volume] in Serum or PlasmaOrdered By: Oscar Poe on 12-18-2022 Creatinine [Mass/Vol] 0.84 mg/dL 0.60-1.20 [facility] Eosinophils Auto (Bld) [#/Vo l]Ordered By: Oscar Poe on 12-18-2022 Eosinophils (Bld) [#/Vol] 0.0 10*3/uL 0.0-0.45 [facility] Eosinophils/100 WBC Auto (Bl d)Ordered By: Oscar Poe on 12-18-2022 Eosinophils/100 WBC (Bld) 0.2 % . [facility] Erythrocyte distribution wid th Auto (RBC) [Ratio]Ordered By: Oscar Poe on 12-18-2022 Erythrocyte distribution width (RBC) [Ratio] 14.4 % 11.9-15.3 [facility] Ethanol [Mass/volume] in Ser um or PlasmaOrdered By: Oscar Poe on 12-18-2022 Ethanol [Mass/Vol] mg/dL [facility] Ethanol [Mass/Vol] TNP [facility] Comment on above: Test not performed Glucose [Mass/volume] in Ser um or PlasmaOrdered By: Oscar Poe on 12-18-2022 Glucose [Mass/Vol] 93 mg/dL 70-100 [facility] Comment on above: ADA recommended refe rence rangeRandom Glucose Reference Range is dependent on time and content of last meal. Glucose of more than 200 mg/dL in a nonstressed, ambulatory subject supports the diagnosis of Diabetes Mellitus. Hematocrit Auto (Bld) [Volum e fraction]Ordered By: Oscar Poe on 12-18-2022 Hematocrit (Bld) [Volume fraction] 36.2 % 34.0-46.4 [facility] Hemoglobin [Mass/volume] in BloodOrdered By: Oscar Poe on 12-18-2022 Hemoglobin (Bld) [Mass/Vol] 11.9 g/dL 11.8-15.4 [facility] Leukocytes [#/volume] correc osmel for nucleated erythrocytes in Blood by Automated counOrdered By: Oscar Poe on 12-18-2022 WBC corrected for nucl RBC Auto (Bld) [#/Vol] 10.3 10*3/uL 3.8-11.6 [facility] Lipase [Enzymatic activity/v olume] in Serum or PlasmaOrdered By: Oscar Poe on 12-18-2022 Lipase [Catalytic activity/Vol] 29.0 U/L 11.0-82.0 [facility] Lymphocytes Auto (Bld) [#/Vo l]Ordered By: Oscar oPe on 12-18-2022 Lymphocytes (Bld) [#/Vol] 2.2 10*3/uL 1.00-4.8 [facility] Lymphocytes/100 WBC Auto (Bl d)Ordered By: Oscar Poe on 12-18-2022 Lymphocytes/100 WBC (Bld) 21.8 % . [facility] MCH Auto (RBC) [Entitic mass ]Ordered By: Oscar Poe on 12-18-2022 MCH (RBC) [Entitic mass] 26.9 pg 24.7-34.3 [facility] MCHC Auto (RBC) [Mass/Vol]Or dered By: Oscar Poe on 12-18-2022 MCHC (RBC) [Mass/Vol] 32.8 g/dL 32.0-35.0 [facility] MCV Auto (RBC) [Entitic vol] Ordered By: Oscar Poe on 12-18-2022 MCV (RBC) [Entitic vol] 82.1 fL 80-100 [facility] Monocyte distribution width [Entitic volume] in Blood by AutomatedOrdered By: Oscar Poe on 12-18-2022 Monocyte distribution width Auto (Bld) [Entitic vol] 22.19 % 0.00-20.00 [facility] Comment on above: For adults in ED, MD W > 20.0 may be associated with a higher risk of sepsis during the first 12 hrs of hospital admission Monocytes Auto (Bld) [#/Vol] Ordered By: Oscar Poe on 12-18-2022 Monocytes (Bld) [#/Vol] 0.8 10*3/uL 0.0-0.8 [facility] Monocytes/100 WBC Auto (Bld) Ordered By: Oscar Poe on 12-18-2022 Monocytes/100 WBC (Bld) 7.4 % . [facility] Neutrophils Auto (Bld) [#/Vo l]Ordered By: Oscar Poe on 12-18-2022 Neutrophils (Bld) [#/Vol] 7.2 10*3/uL 1.8-7.7 [facility] Neutrophils/100 WBC Auto (Bl d)Ordered By: Oscar Poe on 12-18-2022 Neutrophils/100 WBC (Bld) 69.9 % . [facility] No Panel InformationOrdered By: Oscar Poe on 12-18-2022 Estimated GFR (CKD-EPI) > 60.0 mL/Min [facility] Creatinine Clearance (Chem 98.76 [facility] Nucleated erythrocytes [Pres ence] in Blood by Automated countOrdered By: Oscar Poe on 12-18-2022 Nucleated RBC Auto Ql (Bld) 0.1 /100{WBC} 0-0.5 [facility] Platelet mean volume Auto (B ld) [Entitic vol]Ordered By: Oscar Poe on 12-18-2022 Platelet mean volume (Bld) [Entitic vol] 8.1 fL 6.3-10.7 [facility] Platelets Auto (Bld) [#/Vol] Ordered By: Oscar Poe on 12-18-2022 Platelets (Bld) [#/Vol] 223 10*3/uL 150-450 [facility] Potassium [Moles/volume] in Serum or PlasmaOrdered By: Oscar Poe on 12-18-2022 Potassium [Moles/Vol] 3.5 mmol/L 3.5-5.1 [facility] RBC Auto (Bld) [#/Vol]Ordere d By: Oscar Poe on 12-18-2022 RBC (Bld) [#/Vol] 4.42 10*6/uL 3.60-5.00 [facility] Serum or plasma anion gap de terminationOrdered By: Oscar Poe on 12-18-2022 Anion gap [Moles/Vol] 14.5 mmol/L 6.0-15.0 [facility] Sodium [Moles/volume] in Ser um or PlasmaOrdered By: Oscar Poe on 12-18-2022 Sodium [Moles/Vol] 136 mmol/L 136-145 [facility] Urea nitrogen [Mass/volume] in Serum or PlasmaOrdered By: Oscar Poe on 12-18-2022 Urea nitrogen [Mass/Vol] 21 mg/dL 7-25 [facility] WBC Auto (Bld) [#/Vol]Ordere d By: Oscar Poe on 12-18-2022 WBC (Bld) [#/Vol] 10.3 10*3/uL 3.8-11.6 [facility] PRBC LEUKOREDUCEDon 07-14-19 23 ABO and Rh group Nom (Bld) Cross Match Result Compatible Unit Blood Type A Pos Unit Number [id number] Status Information Released Specimen Exp Date Product ID Red Blood Cells Product Code [id number] Cross Match Result Compatible Unit Blood Type A Pos Unit Number [id number] Status Information Transfused Product ID Red Blood Cells Product Code [id number] Normal [facility] Comment on above: Performed By: #### R UBIGG #### [facility] [address] [place] [address] Dr. Juan Antonio Ibarra CBC AUTO DIFFon 07-07-2022 BASO # 0.0 103/ul Normal 0.0-0.1 [facility] Comment on above: Performed By: #### A 1C #### [facility] [address] [place] [address] Dr. Juan Antonio Ibarra Basophils/100 WBC (Bld) 0.3 % Normal 0.2-2.0 [facility] Comment on above: Performed By: #### A 1C #### [facility] [address] [place] [address] Dr. Juan Antonio Ibarra EO # 0.1 103/ul Normal 0.0-0.7 [facility] Comment on above: Performed By: #### A 1C #### [facility] [address] [place] [address] Dr. Juan Antonio Ibarra Eosinophils/100 WBC (Bld) 0.9 % Normal 0.9-7.0 [facility] Comment on above: Performed By: #### A 1C #### [facility] [address] [place] [address] Dr. Juan Antonio Ibarra Erythrocyte distribution width (RBC) [Ratio] 14.5 % Normal 11.0-15.0 [facility] Comment on above: Performed By: #### A 1C #### [facility] [address] [place] [address] Dr. Juan Antonio Ibarra Hematocrit (Bld) [Volume fraction] 22.5 % Critically low 36.0-48.0 [facility] Comment on above: Performed By: #### A 1C #### [facility] [address] [place] [address] Dr. Juan Antonio Ibarra Hemoglobin (Bld) [Mass/Vol] 7.9 g/dL Critically low 12.0-16.0 [facility] Comment on above: Performed By: #### A 1C #### [facility] [address] [place] [address] Dr. Juan Antonio Ibarra IG # 0.10 10e3/ul Critically high 0.00-0.03 [facility] Comment on above: Performed By: #### A 1C #### [facility] [address] [place] [address] Dr. Juan Antonio Ibarra IG % 0.9 % Critically high 0.0-0.5 [facility] Comment on above: Performed By: #### A 1C #### [facility] [address] [place] [address] Dr. Juan Antonio Ibarra LYMPH # 1.6 103/ul Normal 1.2-3.8 [facility] Comment on above: Performed By: #### A 1C #### [facility] [address] [place] [address] Dr. Juan Antonio Ibarra Lymphocytes/100 WBC (Bld) 14.0 % Critically low 20.5-60.0 [facility] Comment on above: Performed By: #### A 1C #### [facility] [address] [place] [address] Dr. Juan Antonio Ibarra MANUAL DIFF REQ NO Normal [facility] Comment on above: Performed By: #### A 1C #### [facility] [address] [place] [address] Dr. Juan Antonio Ibarra MCH (RBC) [Entitic mass] 26.4 pg Critically low 26.7-34.0 [facility] Comment on above: Performed By: #### A 1C #### [facility] [address] [place] [address] Dr. Juan Antonio Ibarra MCHC (RBC) [Mass/Vol] 35.1 g/dL Normal 29.9-35.2 [facility] [place] [facility] Comment on above: Performed By: #### A 1C #### [facility] [place] [facility] [address] [place] [address] Dr. Juan Antonio Ibarra MCV (RBC) [Entitic vol] 75.3 fL Critically low 81.0-99.0 [facility] [place] [facility] Comment on above: Performed By: #### A 1C #### [facility] [place] [facility] [address] [place] [address] Dr. Juan Antonio Ibarra MONO # 0.7 103/ul Normal 0.3-0.8 [facility] [place] [facility] Comment on above: Performed By: #### A 1C #### [facility] [place] [facility] [address] [place] [address] Dr. Juan Antonio Ibarra Monocytes/100 WBC (Bld) 6.2 % Normal 1.7-12.0 [facility] [place] [facility] Comment on above: Performed By: #### A 1C #### [facility] [place] [facility] [address] [address] [address] Juan Antonio Ibarra NEUT # 9.1 103/ul Critically high 1.4-6.5 [facility] [place] [facility] Comment on above: Performed By: #### A 1C #### [facility] [place] [facility] [address] [place] [address] Dr. Juan Antonio Ibarra Neutrophils/100 WBC (Bld) 77.7 % Critically high 43.0-75.0 [facility] [place] [facility] Comment on above: Performed By: #### A 1C #### [facility] [place] [facility] [address] [place] [address] Dr. Juan Antonio Ibarra Platelet mean volume (Bld) [Entitic vol] 9.2 fL Critically low 9.5-13.5 [facility] [place] [facility] Comment on above: Performed By: #### A 1C #### [facility] [place] [facility] [address] [place] [address] Dr. Juan Antonio Ibarra PLT 143 103/ul Critically low 150-450 [facility] [place] [facility] Comment on above: Performed By: #### A 1C #### [facility] [place] [facility] [address] [place] [address] Dr. Juan Antonio Ibarra RBC 2.99 106/ul Critically low 4.20-5.40 [facility] [place] [facility] Comment on above: Performed By: #### A 1C #### [facility] [place] [facility] [address] [place] [address] Dr. Juan Antonio Ibarra WBC 11.7 103/ul Critically high 4.0-11.0 [facility] [place] [facility] Comment on above: Performed By: #### A 1C #### [facility] [place] [facility] [address] [place] [address] Dr. Juan Antonio Ibarra CBC AUTO DIFFon 07-06-2022 BASO # 0.0 103/ul Normal 0.0-0.1 [facility] [place] [facility] Comment on above: Performed By: #### A 1C #### [facility] [place] [facility] [address] [place] [address] Dr. Juan Antonio Ibarra Basophils/100 WBC (Bld) 0.3 % Normal 0.2-2.0 [facility] [place] [facility] Comment on above: Performed By: #### A 1C #### [facility] [place] [facility] [address] [place] [address] Dr. Juan Antonio Ibarra EO # 0.1 103/ul Normal 0.0-0.7 [facility] [place] [facility] Comment on above: Performed By: #### A 1C #### [facility] [place] [facility] [address] [place] [address] Dr. Juan Antonio Ibarra Eosinophils/100 WBC (Bld) 0.8 % Critically low 0.9-7.0 [facility] [place] [facility] Comment on above: Performed By: #### A 1C #### [facility] [place] [facility] [address] [place] [address] Dr. Juan Antonio Ibarra Erythrocyte distribution width (RBC) [Ratio] 14.3 % Normal 11.0-15.0 [facility] [place] [facility] Comment on above: Performed By: #### A 1C #### [facility] [place] [facility] [address] [place] [address] Dr. Juan Antonio Ibarra Hematocrit (Bld) [Volume fraction] 23.0 % Critically low 36.0-48.0 [facility] [place] [facility] Comment on above: Performed By: #### A 1C #### [facility] [place] [facility] [address] [place] [address] Dr. Juan Antonio Ibarra Hemoglobin (Bld) [Mass/Vol] 7.5 g/dL Critically low 12.0-16.0 [facility] [place] [facility] Comment on above: Performed By: #### A 1C #### [facility] [place] [facility] [address] [place] [address] Dr. Juan Antonio Ibarra IG # 0.07 10e3/ul Critically high 0.00-0.03 [facility] [place] [facility] Comment on above: Performed By: #### A 1C #### [facility] [place] [facility] [address] [place] [address] Dr. Juan Antonio Ibarra IG % 0.6 % Critically high 0.0-0.5 [facility] [place] [facility] Comment on above: Performed By: #### A 1C #### [facility] [place] [facility] [address] [place] [address] Dr. Juan Antonio Ibarra LYMPH # 2.1 103/ul Normal 1.2-3.8 [facility] [place] [facility] Comment on above: Performed By: #### A 1C #### [facility] [place] [facility] [address] [place] [address] Dr. Juan Antonio Ibarra Lymphocytes/100 WBC (Bld) 18.8 % Critically low 20.5-60.0 [facility] [place] [facility] Comment on above: Performed By: #### A 1C #### [facility] [place] [facility] [address] [place] [address] Dr. Juan Antonio Ibarra MANUAL DIFF REQ NO Normal [facility] [place] [facility] Comment on above: Performed By: #### A 1C #### [facility] [place] [facility] [address] [place] [address] Dr. Juan Antonio Ibarra MCH (RBC) [Entitic mass] 26.0 pg Critically low 26.7-34.0 [facility] [place] [facility] Comment on above: Performed By: #### A 1C #### [facility] [place] [facility] [address] [place] [address] Dr. Juan Antonio Ibarra MCHC (RBC) [Mass/Vol] 32.6 g/dL Normal 29.9-35.2 [facility] [place] [facility] Comment on above: Performed By: #### A 1C #### [facility] [place] [facility] [address] [place] [address] Dr. Juan Antonio Ibarra MCV (RBC) [Entitic vol] 79.9 fL Critically low 81.0-99.0 [facility] [place] [facility] Comment on above: Performed By: #### A 1C #### [facility] [place] [facility] [address] [place] [address] Dr. Juan Antonio Ibarra MONO # 0.7 103/ul Normal 0.3-0.8 [facility] [place] [facility] Comment on above: Performed By: #### A 1C #### [facility] [place] [facility] [address] [place] [address] Dr. Juan Antonio Ibarra Monocytes/100 WBC (Bld) 6.6 % Normal 1.7-12.0 [facility] [place] [facility] Comment on above: Performed By: #### A 1C #### [facility] [place] [facility] [address] [place] [address] Dr. Juan Antonio Ibarra NEUT # 8.2 103/ul Critically high 1.4-6.5 [facility] [place] [facility] Comment on above: Performed By: #### A 1C #### [facility] [place] [facility] [address] [place] [address] Dr. Juan Antonio Ibarra Neutrophils/100 WBC (Bld) 72.9 % Normal 43.0-75.0 [facility] [place] [facility] Comment on above: Performed By: #### A 1C #### [facility] [place] [facility] [address] [place] [address] Dr. Juan Antonio Ibarra Platelet mean volume (Bld) [Entitic vol] 9.8 fL Normal 9.5-13.5 [facility] [place] [facility] Comment on above: Performed By: #### A 1C #### [facility] [place] [facility] [address] [place] [address] Dr. Juan Antonio Ibarra PLT 151 103/ul Normal 150-450 [facility] [place] [facility] Comment on above: Performed By: #### A 1C #### [facility] [place] [facility] [address] [place] [address] Dr. Juan Antonio Ibarra RBC 2.88 106/ul Critically low 4.20-5.40 [facility] [place] [facility] Comment on above: Performed By: #### A 1C #### [facility] [place] [facility] [address] [place] [address] Dr. Juan Antonio Ibarra WBC 11.3 103/ul Critically high 4.0-11.0 [facility] [place] [facility] Comment on above: Performed By: #### A 1C #### [facility] [place] [facility] [address] [place] [address] Dr. Juan Antonio Ibarra CBC AUTO DIFFon 07-05-2022 BASO # 0.0 103/ul Normal 0.0-0.1 [facility] [place] [facility] Comment on above: Performed By: #### R PRQ #### [facility] [place] [facility] [address] [place] [address] Dr. Juan Antonio Ibarra Basophils/100 WBC (Bld) 0.2 % Normal 0.2-2.0 [facility] [place] [facility] Comment on above: Performed By: #### R PRQ #### [facility] [place] [facility] [address] [place] [address] Dr. Juan Antonio Ibarra EO # 0.0 103/ul Normal 0.0-0.7 [facility] [place] [facility] Comment on above: Performed By: #### R PRQ #### [facility] [place] [facility] [address] [address] [address] Juan Antonio Ibarra Eosinophils/100 WBC (Bld) 0.4 % Critically low 0.9-7.0 [facility] [place] [facility] Comment on above: Performed By: #### R PRQ #### [facility] [place] [facility] [address] [place] [address] Dr. Juan Antonio Ibarra Erythrocyte distribution width (RBC) [Ratio] 14.2 % Normal 11.0-15.0 [facility] [place] [facility] Comment on above: Performed By: #### R PRQ #### [facility] [place] [facility] [address] [place] [address] Dr. Juan Antonio Ibarra Hematocrit (Bld) [Volume fraction] 31.0 % Critically low 36.0-48.0 [facility] [place] [facility] Comment on above: Performed By: #### R PRQ #### [facility] [place] [facility] [address] [place] [address] Dr. Juan Antonio Ibarra Hemoglobin (Bld) [Mass/Vol] 10.1 g/dL Critically low 12.0-16.0 [facility] [place] [facility] Comment on above: Performed By: #### R PRQ #### [facility] [place] [facility] [address] [place] [address] Dr. Juan Antonio Ibarra IG # 0.10 10e3/ul Critically high 0.00-0.03 [facility] [place] [facility] Comment on above: Performed By: #### R PRQ #### [facility] [place] [facility] [address] [place] [address] Dr. Juan Antonio Ibarra IG % 1.1 % Critically high 0.0-0.5 [facility] [place] [facility] Comment on above: Performed By: #### R PRQ #### [facility] [place] [facility] [address] [place] [address] Dr. Juan Antonio Ibarra LYMPH # 1.6 103/ul Normal 1.2-3.8 [facility] [place] [facility] Comment on above: Performed By: #### R PRQ #### [facility] [place] [facility] [address] [place] [address] Dr. Juan Antonio Ibarra Lymphocytes/100 WBC (Bld) 17.5 % Critically low 20.5-60.0 [facility] [place] [facility] Comment on above: Performed By: #### R PRQ #### [facility] [place] [facility] [address] [place] [address] Dr. Juan Antonio Ibarra MANUAL DIFF REQ NO Normal [facility] [place] [facility] Comment on above: Performed By: #### R PRQ #### [facility] [place] [facility] [address] [place] [address] Dr. Juan Antonio Ibarra MCH (RBC) [Entitic mass] 25.8 pg Critically low 26.7-34.0 [facility] [place] [facility] Comment on above: Performed By: #### R PRQ #### [facility] [place] [facility] [address] [place] [address] Dr. Juan Antonio Ibarra MCHC (RBC) [Mass/Vol] 32.6 g/dL Normal 29.9-35.2 [facility] [place] [facility] Comment on above: Performed By: #### R PRQ #### [facility] [place] [facility] [address] [place] [address] Dr. Juan Antonio Ibarra MCV (RBC) [Entitic vol] 79.3 fL Critically low 81.0-99.0 [facility] [place] [facility] Comment on above: Performed By: #### R PRQ #### [facility] [place] [facility] [address] [place] [address] Dr. Juan Antonio Ibarra MONO # 0.7 103/ul Normal 0.3-0.8 [facility] [place] [facility] Comment on above: Performed By: #### R PRQ #### [facility] [place] [facility] [address] [place] [address] Dr. Juan Antonio Ibarra Monocytes/100 WBC (Bld) 8.1 % Normal 1.7-12.0 [facility] [place] [facility] Comment on above: Performed By: #### R PRQ #### [facility] [place] [facility] [address] [place] [address] Dr. Juan Antonio Ibarra NEUT # 6.7 103/ul Critically high 1.4-6.5 [facility] [place] [facility] Comment on above: Performed By: #### R PRQ #### [facility] [place] [facility] [address] [place] [address] Dr. Juan Antonio Ibarra Neutrophils/100 WBC (Bld) 72.7 % Normal 43.0-75.0 [facility] [place] [facility] Comment on above: Performed By: #### R PRQ #### [facility] [place] [facility] [address] [place] [address] Dr. Juan Antonio Ibarra Platelet mean volume (Bld) [Entitic vol] 10.1 fL Normal 9.5-13.5 [facility] [place] [facility] Comment on above: Performed By: #### R PRQ #### [facility] [place] [facility] [address] [place] [address] Dr. Juan Antonio Ibarra PLT 202 103/ul Normal 150-450 [facility] [place] [facility] Comment on above: Performed By: #### R PRQ #### [facility] [place] [facility] [address] [place] [address] Dr. Juan Antonio Ibarra RBC 3.91 106/ul Critically low 4.20-5.40 [facility] [place] [facility] Comment on above: Performed By: #### R PRQ #### [facility] [place] [facility] [address] [place] [address] Dr. Juan Antonio Ibarra WBC 9.2 103/ul Normal 4.0-11.0 [facility] [place] [facility] Comment on above: Performed By: #### R PRQ #### [facility] [place] [facility] [address] [place] [address] Dr. Juan Antonio Ibarra DRUG SCREEN RAPID (URINE)on 07-05-2022 AMP Negative Normal NEGATIVE [facility] [place] [facility] Comment on above: Performed By: #### A 1C #### [facility] [place] [facility] [address] [place] [address] Dr. Juan Antonio Ibarra BAR Negative Normal NEGATIVE [facility] [place] [facility] Comment on above: Performed By: #### A 1C #### [facility] [place] [facility] [address] [place] [address] Dr. Juan Antonio Ibarra BUP Negative Normal NEGATIVE [facility] [place] [facility] Comment on above: Performed By: #### A 1C #### [facility] [place] [facility] [address] [place] [address] Dr. Juan Antonio Ibarra BZO Negative Normal NEGATIVE [facility] [place] [facility] Comment on above: Performed By: #### A 1C #### [facility] [place] [facility] [address] [place] [address] Dr. Juan Antonio Ibarra PARAM Negative Normal NEGATIVE [facility] [place] [facility] Comment on above: Performed By: #### A 1C #### [facility] [place] [facility] [address] [place] [address] Dr. Juan Antonio Ibarra CUT-OFFS SEE BELOW Normal [facility] [place] [facility] Comment on above: Result Comment: [...] ng/mL Performed By: #### A 1C #### [facility] [place] [facility] [address] [place] [address] Dr. Juan Antonio Ibarra DRUG CUT HEADER DRUG CLASS TEST SYST EM CUT-OFF CONCENTRATIONS ARE FOLLOWS: Normal [facility] [place] [facility] Comment on above: Performed By: #### A 1C #### [facility] [place] [facility] [address] [place] [address] Dr. Juan Antonio Ibarra mAMP Negative Normal NEGATIVE [facility] [place] [facility] Comment on above: Performed By: #### A 1C #### [facility] [place] [facility] [address] [place] [address] Dr. Juan Antonio Ibarra MTD Negative Normal NEGATIVE [facility] [place] [facility] Comment on above: Performed By: #### A 1C #### [facility] [place] [facility] [address] [place] [address] Dr. Juan Antonio Ibarra OPI Negative Normal NEGATIVE [facility] [place] [facility] Comment on above: Performed By: #### A 1C #### [facility] [place] [facility] [address] [place] [address] Dr. Juan Antonio Ibarra OXY Negative Normal NEGATIVE [facility] [place] [facility] Comment on above: Performed By: #### A 1C #### [facility] [place] [facility] [address] [place] [address] Dr. Juan Antonio Ibarra PCP Negative Normal NEGATIVE [facility] [place] [facility] Comment on above: Performed By: #### A 1C #### [facility] [place] [facility] [address] [address] [address] Juan Antonio Ibarra PPX Negative Normal NEGATIVE [facility] [place] [facility] Comment on above: Performed By: #### A 1C #### [facility] [place] [facility] [address] [address] [address] Juan Antonio Ibarra TCA Negative Normal NEGATIVE [facility] [place] [facility] Comment on above: Performed By: #### A 1C #### [facility] [place] [facility] [address] [address] [address] Juan Antonio Ibarra THC Negative Normal NEGATIVE [facility] [place] [facility] Comment on above: Performed By: #### A 1C #### [facility] [place] [facility] [address] [address] [address] Juan Antonio Ibarra TYPE AND SCREENon 07-05-2022 TYPE AND SCREEN Negative Normal [facility] [place] [facility] Comment on above: Performed By: #### T NS #### [facility] [place] [facility] [address] [address] [address] Juan Antonio Ibarra US PREG BIOPHY [...] FELECIA GOLDMAN Date: 2022-06-28 15:29 Normal [facility] [place] [facility] US PREG BIOPHY W NON [...] FELECIA GOLDMAN Date: 2022-06-21 17:20 Normal [facility] [place] [facility] US PREG GROWTHon 06-21-2022 US [...] GAMALIEL CRUMP Date: 2022-06-21 13:37 Normal [facility] [place] [facility] CULTURE URINEon 06-16-2022 CULTURE URINE Culture Observations : LIGHT GROWTH OF MIXED GENITAL ALONSO. NO POTENTIAL PATHOGENS SEEN. Normal [facility] [place] [facility] Comment on above: Performed By: #### U RCX #### [facility] [place] [facility] [address] [place] [address] Dr. 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 Juan Antonio Ibarra Clarity (U) CLEAR Normal CLEAR [facility] [place] [facility] Comment on above: Performed By: #### U MICRO, UACSIND #### [facility] [place] [facility] [address] [place] [address] Dr. Juan Antonio Ibarra Color (U) LT. YELLOW Normal YELLOW [facility] [place] [facility] Comment on above: Performed By: #### U MICRO, UACSIND #### [facility] [place] [facility] [address] [address] [address] Juan Antonio Ibarra Glucose Ql (U) Negative Normal NEGATIVE [facility] [place] [facility] Comment on above: Performed By: #### U MICRO, UACSIND #### [facility] [place] [facility] [address] [address] [address] Juan Antonio Ibarra Hemoglobin Ql (U) Negative Normal NEGATIVE [facility] [place] [facility] Comment on above: Performed By: #### U MICRO, UACSIND #### [facility] [place] [facility] [address] [address] [address] Juan Antonio Ibarra Ketones Ql (U) Negative Normal NEGATIVE [facility] [place] [facility] Comment on above: Performed By: #### U MICRO, UACSIND #### [facility] [place] [facility] [address] [place] [address] Dr. Juan Antonio Ibarra LEUKOCYTES MODERATE Abnormal NEGATIVE [facility] [place] [facility] Comment on above: Performed By: #### U MICRO, UACSIND #### [facility] [place] [facility] [address] [place] [address] Dr. Juan Antonio Ibarra Nitrite Ql (U) Negative Normal NEGATIVE [facility] [place] [facility] Comment on above: Performed By: #### U MICRO, UACSIND #### [facility] [place] [facility] [address] [place] [address] Dr. Juan Antonio Ibarra pH (U) 6.0 [pH] Normal 5-9 [facility] [place] [facility] Comment on above: Performed By: #### U MICRO, UACSIND #### [facility] [place] [facility] [address] [place] [address] Dr. Juan Antonio Ibarra SPEC GRAVITY 1.020 Normal 1.005-<=1. 025 [facility] [place] [facility] Comment on above: Performed By: #### U MICRO, UACSIND #### [facility] [place] [facility] [address] [place] [address] Dr. Juan Antonio Ibarra UA PROTEIN Negative Normal NEGATIVE/ TRACE [facility] [place] [facility] Comment on above: Performed By: #### U MICRO, UACSIND #### [facility] [place] [facility] [address] [address] [address] Juan Antonio Ibarra UR MICRO IND INDICATED Normal [facility] Comment on above: Performed By: #### U MICRO, UACSIND #### [facility] [place] [facility] [address] [place] [address] Dr. Juan Antonio Ibarra Urobilinogen Qn (U) 1.0 {Pamela'U}/dL Normal 0.2 - 1. 0 [facility] Comment on above: Performed By: #### U MICRO, UACSIND #### [facility] [address] [place] [address] Dr. Juan Antonio Ibarra URINE MICROSCOPIC ONLYon BACTERIA SMALL Abnormal NONE SEEN [facility] Comment on above: Performed By: #### U MICRO, UACSIND #### [facility] [address] [place] [address] Dr. Juan Antonio Ibarra Bacteria identified Cx Nom (U) INDICATED Normal [facility] Comment on above: Performed By: #### U MICRO, UACSIND #### [facility] [address] [place] [address] Dr. Juan Antonio Ibarra CAST NONE SEEN Normal NONE SEEN [facility] Comment on above: Performed By: #### U MICRO, UACSIND #### [facility] [address] [place] [address] Dr. Juan Antonio Ibarra Crystals LM Nom (Urine sed) NONE SEEN Normal NONE SEEN [facility] Comment on above: Performed By: #### U MICRO, UACSIND #### [facility] [address] [place] [address] Dr. Juan Antonio Ibarra Epithelial cells LM Ql (Urine sed) RARE Normal NONE SEEN /RARE [facility] Comment on above: Performed By: #### U MICRO, UACSIND #### [facility] [place] [facility] [address] [place] [address] Dr. Juan Antonio Ibarra MUCOUS NONE SEEN Normal NONE SEEN [facility] Comment on above: Performed By: #### U MICRO, UACSIND #### [facility] [address] [place] [address] Dr. Juan Antonio Ibarra RBC NONE SEEN Abnormal 0-2 [facility] Comment on above: Performed By: #### U MICRO, UACSIND #### [facility] [place] [facility] [address] [place], [place] [address] Dr. Juan Antonio Ibarra WBC 2-5 Abnormal NONE SEEN [facility] [place] [facility] Comment on above: Performed By: #### U MICRO, UACSIND #### [facility] [place] [facility] [address] [place], [place] [address] Dr. Juan Antonio Ibarra GROUP B STREP CULTUREon 05-18 S. agalactiae Ag Ql (Unsp spec) Culture Observations: NEGATIVE FOR GROUP B STREPTOCOCCUS. Normal [facility] Comment on above: Performed By: #### G BSCX #### [facility] [place] [facility] [address] [place], [place] [address] Dr. Juan Antonio Ibarra US PREG BIOPHY [...] by: GAMALIEL CRUMP Date: 2022-06-14 16:10 Normal [facility] US PREG BIOPHY W NON [...] by: FELECIA GOLDMAN Date: 2022-06-07 16:42 Normal [facility] [place] [facility] US PREG BIOPHY W NON [...] by: FELECIA GOLDMAN Date: 2022-06-04 17:11 Normal [facility] [place] [facility] US PREG BIOPHY W NON [...] by: FELECIA GOLDMAN Date: 2022-06-04 16:23 Normal [facility] [place] [facility] US PREG BIOPHY W NON [...] by: GAMALIEL CRUMP Date: 2022-05-31 18:39 Normal [facility] [place] [facility] US PREG BIOPHY W NON [...] FELECIA GOLDMAN Date: 2022-05-24 16:34 Normal [facility] [place] [facility] US PREG GROWTHon 05-24-2022 US [...] FELECIA GOLDMAN Date: 2022-05-24 16:33 Normal [facility] [place] [facility] GLUCOSE - 1HRon 04-04-2022 Glucose [Mass/Vol] 101 mg/dL Normal 74-106 [facility] Comment on above: Performed By: #### R PRQ #### [facility] [place] [facility] [address] [place] [address] Dr. Juan Antonio bIarra HEMOGRAM AND PLATELon 2021 Hematocrit (Bld) [Volume fraction] 33.5 % Critically low 36.0-48.0 [facility] Comment on above: Performed By: #### A 1C #### [facility] [place] [facility] [address] [place] [address] Dr. Juan Antonio Ibarra Hemoglobin (Bld) [Mass/Vol] 10.7 g/dL Critically low 12.0-16.0 [facility] [place] [facility] Comment on above: Performed By: #### A 1C #### [facility] [place] [facility] [address] [place] [address] Dr. Juan Antonio Ibarra MCH (RBC) [Entitic mass] 29.3 pg Normal 26.7-34.0 [facility] [place] [facility] Comment on above: Performed By: #### A 1C #### [facility] [place] [facility] [address] [place] [address] Dr. Juan Antonio Ibarra MCHC (RBC) [Mass/Vol] 31.9 g/dL Normal 29.9-35.2 [facility] [place] [facility] Comment on above: Performed By: #### A 1C #### [facility] [place] [facility] [address] [place] [address] Dr. Juan Antonio Ibarra MCV (RBC) [Entitic vol] 91.8 fL Normal 81.0-99.0 [facility] Comment on above: Performed By: #### A 1C #### [facility] [address] [place] [address] Dr. Juan Antonio Ibarra PLT 179 103/ul Normal 150-450 [facility] Comment on above: Performed By: #### A 1C #### [facility] [address] [place] [address] Dr. Juan Antonio Ibarra RBC 3.65 106/ul Critically low 4.20-5.40 [facility] Comment on above: Performed By: #### A 1C #### [facility] [address] [place] [address] Dr. Juan Antonio Ibarra WBC 9.9 103/ul Normal 4.0-11.0 [facility] Comment on above: Performed By: #### A 1C #### [facility] [address] [place] [address] Dr. Juan Antonio Ibarra US PREG REEVAL [...] by: FELECIA GOLDMAN Date: 2022-03-20 20:55 Normal [facility] US PREG ANATOMY SINGLEon US [...] mm. Follow-up recommended. Electronically authenticated by: FELECIA GODLMAN Date: 2022-02-22 16:46 Normal [facility] Coding Summaryon 02-14-2022 Coding Summary HTMLBase 64 NaptuglfJDe6jOe+PGhlYWQ+PE 4QOBDmY19ufJRygL4PB3lYXH3M BJZFCRADPX0NKS5jbEJ3ZLidS3 VybiAv OnidfDBqKM22GHm7NAE9hJzhLL wpsB3kaCAyD0a7VvMuYZ79dT09 GWpfGULlAnD6YjWyyzyxoJFi Y2kxXvHzqPYaYqe+PHRhYmxlIH owMKUgSIrjKTXbNdPnqPlwZD0m Rd0tTCUmOBTaoThujVLkCfQa h3xbPZKiTLvyLT1thOtfR3QajS D4EWBfh2h7Qz70bDY+PHRkIHN0 zCnhRFgwo997ZrRra3egDJN4 fMHnERsfXFY1B69jv3R6QSHwHO PjGNS1qTF5yT4pgTqzllwjO2Ys eRCoOwO8AUC2gJFzgZ5vxEic wrspdL7uRrn+H37YKC5BTZWEMB 1OJza1K4KkWokleKM+QI45LMKp DL21tCAujOBok5uiyJk8WdZi PEGsCIF8bLawBUozr9BxWUBcG6 7aqZUyo2H9OEJwhOyasIUjOnEw lBI7iY1oRAmgveboz8hzqaaj Entis0zsxi08xR81G77uVMjhQD GyDPO4FLBtEYHgfHumjg4zmU2o Ii8+RNavg2cul1pprWa7XcSd GPAccwYyhBbpMCD1q6TaOm71A2 SlnQsxr5MwLly7bq12oIYhc4L8 tWE4AWmnCKWjrG6zKFxmUyY7 FGNnFuCyjX60uQTeCIbhUq6keB cspBzfLS4oZDBkjjjdEPOfmS0g QTDgvQPfkYqhCT1cYBMhpwtj j622BdVdHFE3UFAmcQKhC4RkxN 1mXdKxJPTwOZGxD5EcqXWpVNaj B779YCpqVdX5JPUcjyTmV6Ni HBEhsHjwBfQ1u6C7Jq4Mg2Gshp uaFPF6NPfxUGS3WwHaInHmYdF0 S0JjZfr0VUNqcQycYH0jS3Ms PQGyzrtpobeenUP0BDZiFKOpaA 72rMMfDJjcYr1cr8Z1v828BXAg VWRyoA66Gf2faJecPGWkjAAI rJ1qdsnis1vlwftrEiDqWJEhUV r4UEp6QEIknTycWtYrCZN2AvC7 UDZ9pHMsjS6wiKjqpswgbN2x Oyc+I95yqT1oSUR9YEQ4rptvGQ XspbQsLA73ID96J7SrTrbrkJKd bGU+PRQvsiYdsCymPM1fXoQs a5wjc6IrDUneS5KlKKEcWPnzFw o8ZHPaCIJ2oID2oS2oMPDiPIos e8V6lYE0C5RrtaTjzh4ck8ng GSVfMPlmK88ooXHht7L5MONwyI A5MTRdjZbyTyRmhV10Rno+PGNv aSuqw5AdNullp2nxx0hhlMl5 SoNzFMZsrsNziCsvBMY4f1EbVb 38T68hQBdoZXXjEMTuTBKrTYUg dMhvda9niY3pRi2+PGNvbCB3 iGG5yN1mZNQoNcV1FVbcD025Vl SqmUNlPaqab5shc1mgvMb9YrHo OFStknCrhNogCHJ8f1QhXc43 T97oMVpjRQNeYSXjQEJsYYSgvH qowe8cfX5uCh3+TS9pf4vwof98 hC98hOH+JZFsRIJ6gYeoEPwl VQWicA7rACxrPsN8NVMmGpJcxJ 23bGUpFUjcTd2smOrkiLawUB7k VVBzednjr320AvWnw8piJBGo yKJqZLsaUVJ2F63in7H1IEJoVP AqNWG6cWQ6rK7xtVlabthpkOYp pSvsowBedVxmCZocIGceP725 IHRvcDsnPlBhdGllbnQgTmFtZT f4H3UcDaj2KNBowPxjSF0xiXGm LFhwKm0uyTojqEeuYA4hFSHx qsivy344BiZbc1woYIRxuLHeRO nyJKY5O36ps8Z1XESlUKRyEFF5 gCC5nQ0lxByrgkaarVHjvLez ouOziJvqANahQGjqG963VDViiV xgPjXxahSrWCBuyJL4TG74TP13 pQFbc6W2vQH9Z6LnLWTermrp ttomsXS9RGSbAXQhqT05Sd3zjW bgWv6tFGEtRAM0YXSuoMSeZ1Qp iS1eQhLhPXQoCYDlJ2PvmUBm GHjqP476MGylFkA5WVSreqGwJ2 LlDVGfqMxsKrL1a3T1Fa7MF7F8 TP18GM92zNHly4F8aNG7V9Mk MQWsjsxtkcodqBA4TEAwMNLroC 08Dq8gkTftJz4xGHSnYVQ9VHEc fIOeR4UrgB9mAmGjWHRgZRZh H1FztVKyGHlhW788IZgeNtB3FE CavaRsL6NdRSXgtOkqUhN7x4R7 Ku2MXAc1NM45AO16uDRmb0B3 zQY8Z2JsDGKyzclbubxytLT9TA TkFXWncZ83Do6foHnaXm9lYOHc EUW4IHHfsJXkR3SnuS4jItHs XNRlLNCuR8WanSVsEBvwW575JU qvBzN3LSRunyMqA6QiJAZlqVxv AuL9l0M2Pa0MNWPqDL47MXN3 zIY8IN09RU71R1BuQpsheUPnrL U+PHRhYmxlIHdpZHRoPScxMDAl QpKpiInmYA1wNw7nMKKhYBBw fPthqIQpLkVks2rtXZYyLGriWS 9gfNjmK9HzpMR3OJQuu9y4Cy85 D32xA0JgmHJ+MYVkfYS4yYD5 yA3nNnXeZtL3ZOjiC014LjMrdP YpZsggf5hro4jozHv6FvR0USTf qmPxjOxzLOE5f1JrLv28W72t IHdpZHRoPSIxNSUiIHZhbGlnbj 6yoK5aEf2+TFYllMF9yTI4sO3f XqLuEdD9ENyiL781LtFcpEZw Swfof0zrq6hrsHv5AnQfYYVfrg TfcLboMQZ1c2ToCh16H3YlaTws c1NcVte9zp39sIExn1V3mTN4 P3QfDHXyavzlvBLkoVorYE2aQU ZrzlviGZGrxP1rCSAtI0y2LzFj QtY6SYyuL8SgjtC5XFDniBId KCapDOE4E76yz6W0TTJqCIYsEX B7zNP5jX1udGsrqosjjUHxiVkd vcXspZykLUbcKSerV443SFXq sMibICUqaG1dBFZzpGSwlStsLS 4wNTBpbjsnPlNURUlOLCBWSVJH DV6KQEBPUAJ4T7XwQhk2MUMx vGvkKM2aiKOmYYjiDp6asOsrpC paUY2vFTEdkaclJBXsaA7fXLIu dSXjlNlpNY3bHFLvcnyvh323 OmXePKG0MCNkdBVkT2YbdU0eNi HgTIOjHWMzA0OrkYZhDMqcW664 YZywQtQ2UQMnfrFuS3ObVYEy vEagCaC7c2W1Pg0zWF1cTM5lPC rwMF20PR07eYLqk5C3sFO2O1Rr NYCtwipewicyvKS9OOXnTEVc aP20bQQvAIlvIb4lw7Q6l253CD PuIOMiaF26Kq4qxNsnTMKrtHSS qT0jxhwia4binrenEbFuWFJy GAs4GNt3CVCnrDgtItQfZKX1Re S4OWG5iHImlN9ttBaytpnyiH9t Oyc+GbfuZENianE9O2YmEoh9 OUGrfZluAN5lmKKuXDhzJi2cxI vjvLofBP9tEULgqluxIXOdeX6l NBDzxZWrtGqtDD4lMXZnquso a297SkLcDPV0HXFddLSpW1ZjyN 7fSuKnDNXwCSLxZ3YahHOmKXpk X379AXohZcL5CZLjpkNiZ1Hk UXNzqNehGiU3f6V2We6KMT1CIP E5A0CfDtp1IEPguCbnBA5aiSLk LSszDh8egZkhfUlgEE2eCQZg yyfpVEWvvV2rPXGtzFFxkVvrHC 2uRZXubjqzh774BjWbJYD4KYVn lONdP0RwsM6tYrEiBXZeAFPv V8RfgYLaPJyyV900ZAhaKcG2EQ DgmlCjY5RkYIEovPpgVlS9l1M0 Km1JZIsxsKJ+EE85hn06K2Qo VjqeCok1DHPyYWP0cDY7yG6xKX AuBPewr3V5wTQ0J0KuwaJpem1k s1trEKJoHPuzF72vdQSgy5X3 SQVxyWD5ZGEsgQzgTvGjuY26Oo c+ZJJhdYgie2OuGqmaq9xsh1qy lNl1RdCiEPXwlfXvxAxgSYE2 p1LyCp30F74gWWgiFCWeTSIsAR SgHSUzyYvzxp9okT0aSp5+PGNv qDT9gQC8vE8pYlRyVzU2QOiv W511HyAfwVDmIcihf9cgl5falT s3AzZhAQQaqaWfaSfoFYN0z0Gv Xf62P7NljLxae8RiNum0fu05 iFXpu7A4pRN9X3GdNHOxcyadjA UqbKpbIX1gGJPsurxlVJWkfF0r EWRwR0d4GjKkZhG9IZrgL2Uc kmP4WDAvhSZqKKGmzQNIhK2kyo kae2sgepajYgBlFHVjKXq7ZLi1 OOXlxIqpKfSzRBZ1PvF5YIE4 pQHvkP2qmXfpcgzgpC0iClm+UG y0v5ryxUQmYC9gnVO3XP87KV27 lYVfr9L7dAU2L0ZcINUwuike yztqiTP4LEVbZTWuoR35Ao6dzL jkVm1cSPScFRE2ZCIdwCVbV0Kj hL2nBcOwNPIyVRLrH4KpkZEf ANlpE938DAbaDlC6PPKgrmWwO9 GfREBnsRrfNsA1w4S2Dx2PNE16 TY58SY71gKKwp1P4lMV0J3Zl VCQdvbwkatkzeTL1BBMwYMOndX 18Qg0kfYhaXu1zETRhXXX5YGNu vVXrZ9FlgM8qOcQoFEPrYRAp F6RkpKPvYNyfW501IHnrRaN2GZ EtbxVlS5GgLADufKcxDyI8o8Q6 Vg7AGb90NQ57FV37wQTsx3L6 hQC7N6AoLSIwgvngfjonuMX7LH RzWVPnvY59Wj2jtHwrMw6gCYPl DNV2HBAmrKWgV6BppM9sMrPw VEFsSOOqX8YldUXhPMakJ706ZT qzQyC2QWXgoeVeT8FoJQXtaEhu QkJ1m7T9Tc4PKJhkodq5N1Po PjwvdHI+GH90GPJnAZ51sRKqlE Dkt9lkwOu4BjYaKHTgYOT0eLnm MJsvp6OtGVMoM25ylXIoo6D4 IGN (more content not included)... [facility] Coding Summary HTMLBase 64 NroevftwPTj1dXp+PGhlYWQ+PE 2YRVWlB93hgLAgvF7NW8eHHC6V NDPRAEELNC4OJH1brOC3UPvsJ0 VybiAv TyrosVWdEJ09BBp3KMD3jNltVC onlH0coLGcA4j2GzNhLO92oN97 VVssJGVeQpN5MrYxehdslQZd C6rnRtGffTYgGpa+PHRhYmxlIH aeNYZlBJslFYCyNoRzkNdyIG6d Jv6cVHUsFKSjbUuqkGJxWvOp j2cpEUVnOZdoKY2fiBjeI3BzdR G8KKBto6n2Ll12eCI+PHRkIHN0 nDqeCFhyf332XiEkx4psMJD9 jDBwBNcwUQP0V92xv2B8ALMrPF SoPDM6tZB6uU9htPrdziggA2Gb dNZuYgJ2RIN4wEUqqS2kiCxj luwwiM6rXar+S05HWI2MXOQECI 2QXma5K7MwPnmcxXV+QZ52OUSp IH26pLLfyXXrw5vnxJo8RbJu HADeIJS6vZrsJJsed3LxEAAwK9 7zhAWhq2M1YEBugGiuhQDzTnIp qRZ8vS0aVRkinsnhu3gleooy Viunw5rzxn20jY53N33gJNgeGI CtZZN2XSUpCCDdvBruav7ayY6p Ii8+RMjtx2jdn5ktfAf7DvAo BRAxgvSteHuxSFJ6b5NlIv37F3 EjrMsrg5ScQde6bn56pYDnt3C6 hLT3JZhhXAYtaM3fTRdxDeV8 CJWaQzFeqC05oWJiXSfeDx9psY lbyRsgMH0aGQBawsemRKAvkF0s XDYqdEYkgMnqAT3cWQRgdbtb v997SnXgFNT7KYPoyGAzC8TlhA 5xNzGcILGjIRHuY6GxbEXwELxe B065VQfeQkG3ESWrmzKwW2Un EPNeuJfoQqO3a1O7Kx3Up5Cmgm mnQRN0HGsaFLH2MmNoSbSqPjQ5 G0EuNyi1JBJpaFdaMY6cJ7Ar BXXksvkaotnhnBC1NRXeQLMyuM 64hKUqHYnlMa2wv8Q1f782VMZb BYFnpF08Ul4eoSimOLKmxRXZ pI3omwbpm3qykkdmWhTrPMFnHA e0EMq7XENauQpbMmMhGIM9WiA6 RPD6xRPtfU8pvUproyscaV4t Oyc+B05jnE1qZZE1IKI1rxnxCI XgdnRpHR78UL28Y2FrTloqdCMi bGU+KQVtqdDujFvzOU0nGwOu g6lec8MzKJpfK9PmLUVwRWudQy z5NYKrHJJ9yYY2aC6cUYJzXBdu y8O2yVJ6R9PsumQqdy3jr4xu ARQvAGyqM63hdHTgh9E0NSJzvD T4DSVjoDfhZqWmpY28Coj+PGNv iNqwh1MlDapue8com3cnxMf7 QsXfFQBworZorDhjECR6n4LuUs 44Y37yUIcbLHNkJANfPDAnLUJv xZlnlx5umH9hKp8+PGNvbCB3 kCC7iQ0zYPYvNdA3PPcbG966Hx MknXFjJvowb9huo7bgfPl0OdLp ECVjetOerJuwHTT8a7AeYg35 C66zNDoeLIGwQRMePQOzMOBlpW wdiy6dtG0vLj3+BS6ou4ukdi25 hV63wXT+KCOjRWR6wJbnMAqz XGAycZ2lJPogJyS6ODKqCfYawK 34hZZlBIadRk8crWvemWsqZE4v RSEairgdk252NxYey8aqXGZh wSQmDLivWTQ7M83st3P7IYWiDY YsKDK5zQV1tY2deZbgvyafwFVx pFzpfmWxmLvwDVawJLpyC038 IHRvcDsnPlBhdGllbnQgTmFtZT g5J2IqUnx6ONSbmNiqLC0grUJy GDbpDw4opOcauOwnVY7fVOXf alqda250QbWet6hgQXPfvLWkFK wtKFB6K91xs1V2HGVbLGTgBKT3 nLZ7nH5ghKgwbgpefWCnbVbe mdOvxEphMNgyOMbcA381EQYyfO vuLxUzasTnQYMeeOV2NS06DD44 hZZet6G3aEQ8E1ZdIMKzatda mebanNF0VMAhMWYbpM39Vx0cmX lfZn3hUBCuOPQ7IQHhgVVvE9Vm fJ5iHiHoHMGwGZAxS6JicXRi PAtwH799YRxaUnV4MIHvqvTmZ0 HuRVTlaQddJeT9m3T6Xs7NS7A3 CF05DY57nQVog1I1eVT4U0Tv DNOtoavoofvhyEG9RIYgHQWdzG 33Ob9juZwnQh1pEVMfKHV0ELCy iVApW4EprB6gVoBjHKLoHKFq M3HckRCbUWkgM580EPjkBrF3BD DhozIlF6IgTRDvxEufCaP0y1E7 Mt9BXNp7QY63ZF08aDYcm6A4 xLV6B9SlAYZbvgrrwyxtzCA7JJ IiJOCanZ27Va1xpPwsYu1rVMVj CBU9ISOhqXVjA5TmmV8tJoGd YUYtYDIgB7IeoMEgDItwX314TA bkLaI7TVUmcfCeQ3LxJUTijKpy KmM6d7O5Yv2DPQKhTG51QIL6 hYT7PN50QW55Q8CyUytbdXMexC U+PHRhYmxlIHdpZHRoPScxMDAl AvDbfLiqVA8rRe6gUFFaDYQg wNymuXOyEjZbj0cwENEwGNshZK 2whHbjK8ZawJW0SYTqf9a7Qe95 L77gQ2JjzUS+TIToaJF6iIQ4 kC2xJhUwAnD9GMqaN365JpDkvO LaCfxkk9jeq6knjMb1RmW4DRCw gvSgsRjpEHW4w2AxFt48H67g IHdpZHRoPSIxNSUiIHZhbGlnbj 3bmH7mLh9+SZGmoOH0cDP7lG5y RwPnUuA1YFbcY044CqJimBMy Enwcl2tsh1zvaLy9VwXgCQDbpw EzqFbeEPT7z8AcJf71B7KkhCnj r2GfGsv7ji08iLZbj3G1aGI7 Y7YqMEJvyqhfuUBvtHiuWY1mYK MphritQPMdbL1mAWJoN6f3DjXv YvC5DDllX6KpzhZ5RLSviIEk VJekOPA8E17zk8Z6XBUmNUCaUY U6nQH5oL8bjBsfxfiwoZPlsSlx ieVjeQayXNwkQZuwV680FIAw tTwiQWXlwU6dGPMwbSLzeDhuBR 4wNTBpbjsnPlNURUlOLCBWSVJH XF0FDKGZJVN7N9UqUsv8MAPl uRzxYZ5cpQTaUAimFc0cqCpbhI tgFC7jJKYvajqgLHWrwZ0oTZMw sGIvuMpePI4hVUWtfvjqb569 JeTcAJW7CRCdgPKpE9DqeS3oUq KtQPTuVIFqX0OxxWWrOPspC446 NKvtBlS6HRZlxfFvV0TqPXXw uKnoFhC4n8L6Hd3hZB7lAY6fJM gvQA58QR85rNZtc0X8nXG2F4Pl CMOizbewgnxjqJM5TCOdOPEz zE22tWQhICxdTq0kl4G6i355PQ FrSYXmaP71Nt0ldLxjVCZgjRPQ nR2timzxd6dllumdLdEaQRUy YHj8UAe4OHUjcQkjGiUpKTY3Fo Y2QBD6iNZerD8evHkhwkzewB2f Oyc+SqtfEEXxhkN1Z3AhBnk6 IGLamQbwEX4efAJzCIctUp3quU enlYqrMQ8aCJHljbsuTHKvyH7u JFRetGEkvAhoYF6cUYYpwdtm l934OiUfZBJ5HLWpaHWsE3FxaK 8mFoDlNOZsWVLrP5KgaSDtIJai H573ZZppIsL5PDVjrmXvP8Tv FODijUueYaJ7x9P0Gp0KDK9OTZ X8L3MrAva8DKLlvXlgNZ1dqUZh IMxlOe8beZdjqLxkYW9kZMXe yzulVUYybR4fBAYbzJCweOwyTF 4zIGUlkbkez392NmVeCJZ6MXMm dGIcE1KrpF9pUgNaPBVnVZVh Z8NtdYVnSQhsS990MXthRkZ5YN DpikXeU7MmLAFmzGdzNnG4s6E7 Cl0QhLQgH9VrR7x6V3SnRmht dHI+CC53CLBuWF59hLYbcFTic4 tjeQn9FkEzSXYmBOC3kTirJBne u3SvLLCnZ44htVWmc2Q9YLTa oDdzjUCaMxDivAD8tE3aQZghqp uwq6ngljhuSzlpc2uotw26zT78 T97oHNfgAQHqNZRdTPDjEVEm tLzcjy4ifM9rVn0+BXNazYH3hU V3wS1wFtUkQjY6ZYgtK218BwPz pFSkJwmme5xgh9dlpKw9IzMn PXNpvoQciLowBQS2r2RhOu82Y2 9sIHdpZHRoPSIyMCUiIHZhbGln cp4laX0iYl2+XG9wj9cleb63 kH40tCX+IQAoBTD9oWezIEkoTQ AxfO9cYYcpCyJ0PGPmDkJaeY59 fKPfWMetDi0jzHemxJmjPN9g OYEoipfki458VkMkl7wyPIKshH WxBJeuUXW2G21hl1S6RBVqSLDk PLR0lSI2nZ5nqWsauqqalHUr uEqfhbKruSxoQEozUPqaU632BR YhcHcvLaIusIAfH6twlrLPKA2j OjwvdGQ+IKJcPOR9xYuxQDyo MNEqsS3rTKJkD1g8YxPzYlH2KZ toH3QbdsI0VBRmzHBjCTBooQFK fV2vcexpl0kokeivTaHiMTBd MPz2RPi7SCRmaRlkVpLwITI0Qs M7FXD4jBUmiW2zlUlksxmsgM4m Oyc+RklOOjwvdGQ+PHRkIHN0 wVkdOGtcGUMwaM2uFLBnE7p8Oz OoZuS4FTcwP1OzloT5CXIixFVx RQRnjHHKoO0leaxtc3otbyhx EuGqCHNvNYk6UUq8ITVohXriQy FzRJR8DzX6XEU2xOPyeX2qpSnp pqonzG8gWyq+TVJOOjwvdGQ+ HKQoVZT2pDbtAEvqQHZmjB9oSR AeK0t0RrZmMjF8WIutM9McncJ5 QTTbsWGbMBUpgWADiB0wypkh n1spaacfSdGzAMZrAVi4AYy4AO NgyWoqMoZyVWP3XqE8PQL9rJCb cE4pgJxaflheoY9fZco+UGF5 JWP9VA35ID18A3NcEecqsIVlkS U+PHRhYmxlIHdpZHRoPScxMDAl AiDiaEruGE0xZi4vIBWoNJNm bGx (more content not included)... Normal [facility] CHLAMYDIA/GONOCOCCUS RAINER ( AB/URINE/PAPon 02-09-2022 Chlamydia trachomatis, RAINER Negative Normal Negative [facility] Comment on above: Performed By: #### R PRQ #### [facility] [address] [address] [address] Juan Antonio Ibarra Neisseria gonorrhoeae, RIANER Negative Normal Negative [facility] Comment on above: Performed By: #### R PRQ #### [facility] [address] [address] [address] Juan Antonio Ibarra AFP MATERNAL FOR SPINA BIFID Aon 02-08-2022 AFP MoM 1.41 Normal [facility] Comment on above: Performed By: #### A FPMAT #### [facility] [address] [address] [address] Juan Antonio Ibarra AFP Value 66.8 ng/mL Normal [facility] Comment on above: Performed By: #### A FPMAT #### [facility] [address] [address] [address] Juan Antonio Ibarra AFP, Serum for Spina Bifida Report Normal [facility] Comment on above: Performed By: #### A FPMAT #### [facility] [address] [address] [address] Juan Antonio Ibarra Comment Comment Normal [facility] Comment on above: Result Comment: Melchor Chaudhary, Ph.D., [facility] Director . References: Available Upon Request. . Multiples Of Median Cutoffs For AFP Elevations Briscoe 2.5 Black 2.8 IDD 2.0 Twins 4.5 Abbreviation Definitions IDD - Insulin Dep Diabetes OSBR - Open Spina Bifida Risk . For further inquiries contact [facility] at [phone]. . This test was developed and its performance characteristics determined by [employer]. It has not been cleared or approved by the Food and Drug Administration. Performed By: #### A FPMAT #### [facility] [address] [address] [address] Juan Antonio Ren Age Collection Date 18.3 weeks Normal [facility] Comment on above: Performed By: #### A FPMAT #### [facility] [address] [address] [address] Juan Antonio Ibarra Gestat, Age Based on LMP [facility] Comment on above: Result Comment: Reca lculations are not recommended when gestational dating by LMP and ultrasound are within 10 days. Performed By: #### A FPMAT #### [facility] [address] [place] [address] Dr. Juan Antonio Ibarra Insulin Dep Diabetes No Normal [facility] Comment on above: Performed By: #### A FPMAT #### [facility] [address] [address] [address] Juan Antonio Ibarra Interpretation Comment Normal [facility] Comment on above: Result Comment: [...] Customer Services to discuss available options. The [employer] recommends amniocentesis be offered to women age 35 and older. Performed By: #### A FPMAT #### [facility] [address] [address] [address] Juan Antonio Ibarra [age] Normal [facility] Comment on above: Performed By: #### A FPMAT #### [facility] [address] [place] [address] Dr. Juan Antonio Ibarra Multiple Gestation No Normal [facility] Comment on above: Performed By: #### A FPMAT #### [facility] [address] [address] [address] Juan Antonio Ibarra OSBR Risk 1 IN 3501 Normal [facility] Comment on above: Performed By: #### A FPMAT #### [facility] [address] [address] [address] Juan Antonio Ibarra PDF . Normal [facility] Comment on above: Performed By: #### A FPMAT #### [facility] [address] [address] [address] Juan Antonio Ibarra Race Normal [facility] Comment on above: Performed By: #### A FPMAT #### [facility] [address] [place] [address] Dr. Juan Antonio Ibarra Test Results: Negative [facility] Comment on above: Performed By: #### A FPMAT #### [facility] [address] [place] [address] Dr. Juan Antonio Ibarra VAGINITIS/VAGINOSIS DNA PROB Abdirashid 02-08-2022 Bettye species Negative Normal Negative [facility] Comment on above: Performed By: #### A 1C #### [facility] [address] [place] [address] Dr. Juan Antonio Ibarra Gardnerella vaginalis Negative Normal Negative [facility] Comment on above: Performed By: #### A 1C #### [facility] [address] [place] [address] Dr. Juan Antonio Ibarra Trichomonas vaginalis Negative Normal Negative [facility] Comment on above: Performed By: #### A 1C #### [facility] [address] [place] [address] Dr. Juan Antonio Ibarra ABO and Rh group post transf usion reaction Nom (Bld)Ordered By: Eleazar Hess on 02-06-2022 Microscopic observation Gram stain Nom (Unsp spec) [facility] ED Clinical Summaryon 2021 ED Clinical Summary [facility] Emergency Department [address] [place] [address] [id number] ED Clinical Summary PERSON INFORMATION Name: ZULEIKA WYATT Age: 31 Years Sex: FEMALE : 1990 MRN: Acct#: Visit Reason: Rash; Medical problem - minor; POSS BODY INFECTION Arrival: 01/29/2022 20:27:46 Discharge: 01/29/2022 21:17:00 LOS: 000 00:50 Check In: 01/29/2022 20:27:46 Checkout:01/29/2022 21:17:00 Address: [address] [place] [address] [address] [facility] [address] PCP: Andie Stoddard PROVIDER INFORMATION Provider Role [...] follow-up with their family doctor or their P[employer]ER [employer] SUPERVISOR doctor. To this they agreed.. Health Status [...] Current Fr (more content not included)... Normal [facility] ED Note - Physicianon 2021 ED Note [...] follow-up with their family doctor or their P[employer]ER M[employer] SUPERVISOR doctor. To this they agreed.. Health Status [...] Once. Impression and Plan Diagnosis Sebaceous cyst ([id number] L72.3, Discharge, Medical) Plan Condition: Unchanged. Disposition: Discharged: time 01/29/2022 20:59:00. Prescriptions: Launch prescripti (more content not included)... Normal [facility] ED Patient Summaryon 022 ED Patient Summary [facility] - Emergency Department [address] [place] [address] PATIENT DISCHARGE INSTRUCTIONS Patient Information Name: ZULEIKA WYATT Age: 31 Years Date of : 1990 Reason For Visit: Rash; Medical problem - minor; POSS BODY INFECTION Arrival Time: 01/29/2022 20:27:46 Primary Care Physician: Andie Stoddard Attending Physician: Johnson Wright DO Comment: Visit Diagnosis: Diagnoses This Visit Medical problem - minor ([id number]) Rash ([id number]) Sebaceous cyst (L72.3) The Pharmacy at [facility] is open Saturday through Saturday from [...] alcohol and/or drug addiction problems; contact the [facility] 07/01 Crisis Hotline -Text 4HGRG qz 748264. If you received any narcotics, sedation, or [...] documents With: Address: When: Andie Wyatt [address] [id number] Business (1) Within 3 to 5 days Comments: home warm compresses clindamycin for antibioitic see your ob, or Dr Wyatt, for recheck apt ----at some point, this might have to be removed; this is not cancer, but a retention cyst of fat material; Return if very red and tender, or fever, vomiting worse You are welcomed to return anytime. Call Dr Wright, ext [phone], if any question patric WRIGHT< ER PHYSICIAN< Heike Jones Octavio Medication Information: The exam and treatment you received today in the [facility] Emergency Department were for an urgent problem and are not intended as complete care. It is important for you to follow up with a doctor, nurse practitioner, or physician?s assistant laboratory director for ongoing care. If your symptoms become [...] so we can reach you if necessary. [facility] Emergency Department has provided you with a complete list of medications post discharge. Please inform your manager talent management/provider of your visit and for further instruction [...] Please call or fax results to Dr. Oritz's office. Refills: 0. multivitamin, ( Multivitamins with [...] Epidermoid Cyst (more content not included)... Normal [facility] TYPE AND SCREENon 12-30-2021 TYPE AND SCREEN Antibody Screen NEGA TIVE Blood Bank Notes performed by CV on 12/26/2021 ABO Rh Typing A Rh Positive Blood Bank Notes performed by CV on 12/26/2021 Normal [facility] Comment on above: Performed By: #### R UBIGG #### [facility] [address] [place] [address] [address] [address] Juan Antonio Ibarra HEP B SURFACE ANTIGEN SCREEN on 12-28-2021 HBsAg Screen Negative Normal Negative [facility] Comment on above: Performed By: #### H BSANS #### [facility] [address] [address] [address] Juan Antonio Ibarra HEPATITIS C VIRUS AB W/ REFL EX QUANTon 12-28-2021 HCV AB 0.2 s/co ratio Normal 0.0-0.9 [facility] Comment on above: Performed By: #### A 1C #### [facility] [address] [place] [address] Dr. Juan Antonio Ibarra Interpretation: Comment Normal [facility] Comment on above: Result Comment: Nega tive Not infected with HCV, unless recent infection is suspected or other evidence exists to indicate HCV infection. Performed By: #### A 1C #### [facility] [address] [place] [address] Dr. Juan Antonio Ibarra HIV 1 AND 2 WITH REFLEXon HIV Screen 4th Generation wRfx Non-Reactive Normal Non Reactive [facility] Comment on above: Result Comment: HIV Negative HIV-1/HIV-2 antibodies and HIV-1 p24 antigen were NOT detected. There is no laboratory evidence of HIV infection. Performed By: #### R UBIGG #### [facility] [address] [place] [address] Dr. Juan Antonio Ibarra RPR QUANTon 12-28-2021 Rapid Plasma Reagin, Quant Non-Reactive Normal NonRea<1:1 [facility] Comment on above: Result Comment: Plea se Note: This test does not meet current guidelines for screening and diagnosis of syphilis. This test is intended for following treatment response in patients being treated for syphilis infection. To screen for syphilis infection, a reflex cascade that includes both RPR and a treponema-specific assay should be utilized, such as Treponema pallidum (Syphilis) Screening Benedict (779986) or Rapid Plasma Reagin (RPR) Test With Reflex to Quantitative RPR and Confirmatory Treponema pallidum Antibodies (311057). Performed By: #### R PRQ #### [facility] [address] [place] [address] Dr. Juan Antonio Ibarra RUBELLA AB IGGon 12-28-2021 Rubella Antibodies, IgG 3.48 index Normal Immune >0.99 [facility] Comment on above: Result Comment: Non- immune <0.90 Equivocal 0.90 - 0.99 Immune >0.99 Performed By: #### R UBIGG #### [facility] [address] [place] [address] Dr. Juan Antonio Ibarra CBC AUTO DIFFon 12-26-2021 BASO # 0.0 103/ul Normal 0.0-0.1 [facility] Comment on above: Performed By: #### A 1C #### [facility] [address] [place] [address] Dr. Juan Antonio Ibarra Basophils/100 WBC (Bld) 0.3 % Normal 0.2-2.0 [facility] Comment on above: Performed By: #### A 1C #### [facility] [address] [place] [address] Dr. Juan Antonio Ibarra EO # 0.0 103/ul Normal 0.0-0.7 [facility] Comment on above: Performed By: #### A 1C #### [facility] [address] [place] [address] Dr. Juan Antonio Ibarra Eosinophils/100 WBC (Bld) 0.4 % Critically low 0.9-7.0 [facility] Comment on above: Performed By: #### A 1C #### [facility] [address] [place] [address] Dr. Juan Antonio Ibarra Erythrocyte distribution width (RBC) [Ratio] 13.5 % Normal 11.0-15.0 [facility] Comment on above: Performed By: #### A 1C #### [facility] [address] [place] [address] Dr. Juan Antonio Ibarra Hematocrit (Bld) [Volume fraction] 38.9 % Normal 36.0-48.0 [facility] Comment on above: Performed By: #### A 1C #### [facility] [address] [place] [address] Dr. Juan Antonio Ibarra Hemoglobin (Bld) [Mass/Vol] 12.9 g/dL Normal 12.0-16.0 [facility] Comment on above: Performed By: #### A 1C #### [facility] [address] [place] [address] Dr. Juan Antonio Ibarra IG # 0.03 10e3/ul Normal 0.00-0.03 [facility] Comment on above: Performed By: #### A 1C #### [facility] [address] [place] [address] Dr. Juan Antonio Ibarra IG % 0.3 % Normal 0.0-0.5 [facility] Comment on above: Performed By: #### A 1C #### [facility] [address] [place] [address] Dr. Juan Antonio Ibarra LYMPH # 1.4 103/ul Normal 1.2-3.8 [facility] Comment on above: Performed By: #### A 1C #### [facility] [address] [place] [address] Dr. Juan Antonio Ibarra Lymphocytes/100 WBC (Bld) 14.5 % Critically low 20.5-60.0 [facility] Comment on above: Performed By: #### A 1C #### [facility] [address] [place] [address] Dr. Juan Antonio Ibarra MANUAL DIFF REQ NO Normal [facility] Comment on above: Performed By: #### A 1C #### [facility] [address] [place] [address] Dr. Juan Antonio Ibarra MCH (RBC) [Entitic mass] 29.6 pg Normal 26.7-34.0 [facility] Comment on above: Performed By: #### A 1C #### [facility] [address] [place] [address] Dr. Juan Antonio Ibarra MCHC (RBC) [Mass/Vol] 33.2 g/dL Normal 29.9-35.2 [facility] Comment on above: Performed By: #### A 1C #### [facility] [address] [place] [address] Dr. Juan Antonio Ibarra MCV (RBC) [Entitic vol] 89.2 fL Normal 81.0-99.0 [facility] Comment on above: Performed By: #### A 1C #### [facility] [address] [place] [address] Dr. Juan Antonio Ibarra MONO # 0.5 103/ul Normal 0.3-0.8 [facility] Comment on above: Performed By: #### A 1C #### [facility] [address] [address] [address] Juan Antonio Ibarra Monocytes/100 WBC (Bld) 4.6 % Normal 1.7-12.0 [facility] Comment on above: Performed By: #### A 1C #### [facility] [address] [place] [address] Dr. Juan Antonio Ibarra NEUT # 7.7 103/ul Critically high 1.4-6.5 [facility] Comment on above: Performed By: #### A 1C #### [facility] [address] [place] [address] Dr. Juan Antonio Ibarra Neutrophils/100 WBC (Bld) 79.9 % Critically high 43.0-75.0 [facility] Comment on above: Performed By: #### A 1C #### [facility] [address] [place] [address] Dr. Juan Antonio Ibarra Platelet mean volume (Bld) [Entitic vol] 10.0 fL Normal 9.5-13.5 [facility] Comment on above: Performed By: #### A 1C #### [facility] [address] [place] [address] Dr. Juan Antonio Ibarra PLT 194 103/ul Normal 150-450 [facility] Comment on above: Performed By: #### A 1C #### [facility] [address] [place] [address] Dr. Juan Antonio Ibarra RBC 4.36 106/ul Normal 4.20-5.40 [facility] Comment on above: Performed By: #### A 1C #### [facility] [address] [place] [address] Dr. Juan Antonio Ibarra WBC 9.7 103/ul Normal 4.0-11.0 [facility] Comment on above: Performed By: #### A 1C #### [facility] [address] [place] [address] Dr. Juan Antonio Ibarra CULTURE URINEon 12-26-2021 CULTURE URINE Culture Observations : LIGHT GROWTH OF MIXED GENITAL ALONSO. NO POTENTIAL PATHOGENS SEEN. Normal [facility] Comment on above: Performed By: #### R UBIGG #### [facility] [address] [address] [address] Juan Antonio Ibarra GLYCOHEMOGLOBIN A1Con 2021 ADA RECOMMENDATION SEE BELOW Normal [facility] Comment on above: Result Comment: ADA RECOMMENDED LIMIT 4.0 - 6.0 ADA THERAPEUTIC TARGET < 7.0 ACTION SUGGESTED > 7.0 Performed By: #### A 1C #### [facility] [address] [address] [address] Juan Antonio Ibarra Glucose [Mass/Vol] 114 mg/dL Normal [facility] Comment on above: Performed By: #### A 1C #### [facility] [address] [address] [address] Juan Antonio Ibarra HbA1c (Bld) [Mass fraction] 5.6 % Normal 4.5-6.2 [facility] Comment on above: Performed By: #### A 1C #### [facility] [address] [address] [address] Juan Antonio Ibarra US PREG TVon [...] by: FELECIA GOLDMAN Date: 2021-12-07 16:59 Normal [facility] Coding Summaryon 11-21-2021 Coding Summary HTMLBase 64 VleoryqwAJq0uOp+PGhlYWQ+PE [id number] AHRKLUPTEK8OWN8gjBK6QFlsL1 VybiAv LarniQVdKJ34CEb5KIQ3fJydSW idoQ4syTFuC4l4OiMhRB43uZ73 DZpvRKMkHnM6LqDahoikoIPi Y1ysQaDsrJXgKst+PHRhYmxlIH zjMJXlPKmgUCPqJlHwsRbwNP9m Sm1xXKIzTFAkzYaktBKhDpSs r1zmWXSoTCzxIJ2vrWcbL2PnyQ X0CBVfn9c2Vz84nHP+PHRkIHN0 iWjtSKsfs750YhAbv7sdKCI3 jCYoAXgqHDW3I57zx1A7YFDxZS UhFKD5aZW6aP1dkGljxevzG6Ny wKUsEuR7HYG9yGOuxM4hzQix zqricO5oOfc+C60CYK1QLELBEC 6KIwt5P1JbUqivoCQ+FL41SIZi AC73oXUqhAHdn4oyuYr1ShOh LPSeKMP0wEvaYUtdl1LnCWQrZ5 7rzMZwe0P1SSOjvTntdCClEcHk xZJ8tD8mFAtxbwlni5kueoif Jmsmz1jozd71bZ00L67dPYuaHB BhEJX8UOBbLTBreWkjjw7ydI8k Ii8+JMzkj2wvb5txlZj2HeRf BOAhoeLozRbdVZE7u1XgXl75Z9 CdoVwzh9IcVne7fu57eMOta2R4 tNQ3HRqqLLTsfV0qLDskYsN2 GVTtUiUyeP40kXYiCHosEq0ynF dgfGgzMU7iYNFayzzdTBWcoA8q DROtoKEoaVfcNO5cDEZabrvt b768HwMrREQ6WFFalWNzM9ZblG 6fOiIqMMGbQHQkV7TqtLWyUQen M886DQjyOkM5KNBletEaS4Fa QKMjgSbjNrW3q4N1Cv2Rz9Oykp tkWWN8SNgbSQK3KzE7RkGxCmA3 Q8BmVgi5ZMHetRdxLM5rG2Hl TPWghqouunzfoCW2WKPiKKHxjW 13lYSfHMmqGg1bu3W7p243IRFr MQOhvB11Tp5qsYysLRJhgCBY cN6ehhdzm3bgddngHpBuGITeKJ u2WPr0RALzxLycElGsXWA3SlZ4 VFU3gOXlpJ7wnOpuvzvzsD1g Oyc+J22ezR4sTCD0FKK9rbalJV ColoJfNB05DF28I5OyKahdmUXr bGU+QTIlzpZzpOdwCP1hHmAs m7deb6JjHKhwX9XcYAYaAZrzPx v0MBAiCXG0vLD5tW2cTPOdLAyo w8P6aAF9T1OoajXxep0ch9bu ORJhARnqM01ztBEjy3U8DWAwyT G9DOXtsYayBzUgdM50Dto+PGNv vAeoq4UkTvbqp0oxe9eztAk1 MrTnQKXyylAqlIesYWM3i2FdEt 47C30kGFzqPPTmSMGxZYPpSWEc eOzxbz4tsN6eLa5+PGNvbCB3 bMD7eZ5iNVZxAmP7SCpqF503Ly HdkFJdMlnof2cdh4ghaIp5RrEx VXGdxaTuaHpoRGJ7k5RkRe91 F58cNAcxNTWeJZMbEBNvMOTbgY ayjj3lpE4iCk0+PY2cz5liog09 bH47bBG+JQXrFNL4wTtjNMwa QCRwiF9nRKiqDkI2LGLbMgZwnV 03sHYxYYbvHp0xpYnmsUifBB1c HZSautmdg249ZcZdf0vsEGMw rGZdKSbbHOO6T44wg7D8WJFpBH IxUOE6kMA6jY0neAovzbvqwDBh eYeizwJdzIqrRRcjBCjnY236 IHRvcDsnPlBhdGllbnQgTmFtZT l4R2KoTog0QAIdpHijYL7fwNSc FYnfYf9ftGeztJadRG3wISHo jcbcc984BfOyb3vlLAGlwTKpOX nnCDA3D53vf8P1LJKsCXMnHDE8 gKK1mS4teNyypnhjsIKxbHns ibDerMpoREqjDNizN966RPMufH zaOrUkdoKjRZWvoUP9SW65FM45 fOQmn4G4hAB0W3MqXYUcozgj xkamkMT2IALvCWTghY50Rt8imP imRe8tIWEjRKB3AMZznQRbI9Yy wP9mNdFaYYKhUJOfI5XhqKDd POakZ614UMjiLoM5YIVssvRiU9 KtLCOrrAktPpV5s0A4Se1JZ9I1 FZ85KD78aJZnt7G6gNK2E2Oe XMPrsbwfpqtzwWK1BWReGZVadD 97Yy0jaBvjNh4vJLUhPCV7CLQi dWUrZ7BnaZ9eLcVcYWWcIKKy M8VfjNKqGQaoT078FTvyVoV8OS QlugSpQ4VhFPHkjHheBjT8o8M4 Yq9RQBm2EP69HL02fUWgj3A7 qTR9A0HhJIEpvzaxsediyVL9SR YgBQPmyF29Fh6dzTcwOw4rEZXm YVP0RDMlsGGyA9DngQ8eJhQx UXFoHQXjG2RqvQOnFTdbR656EV bfAfH3FGBggxBtR8OkSYSmsBvm OeC5l4M7Ic9TKBReIS58ROO0 eCZ6RQ90DH09G4BfEoqwaNSzbS U+PHRhYmxlIHdpZHRoPScxMDAl PnNjyGoySD7kJk2iFFCrXLVa bPfdfZKsSmQek1esMUBkCArmCG 6xsHqdX6FphXS0KDNbq0i1Wv47 Y94bX5TclUK+CWIwiTB3lHW8 rC1wRsMzRhE2YEotT094ZcYmdZ FwEtvan3zuf7jlfYd2BhD3FOKa dgRwfGawUDQ6o1IsXh11G36p IHdpZHRoPSIxNSUiIHZhbGlnbj 5stZ9vQu8+QHKvtVG5kDV1mG4u YxToNzW7JZyhT592ZmLbrYAc Wrcxi8bnd2qonSl1CqVzDLFaem JpiBnmMQN2t1XzJx64B0NkwHzq h0LuHec9hz92eHExi4L8lTG5 W4IxXUGmelmydXFatQwjCM9xIC FjgmqcMWLleC4dJCGzU2y5SwHp DvE5UTwaG2FyzxV5LUSulSOz SEibVEF6S42kx3Z4BEQfCEQpTJ A4vHX3cP6pcZklgotzqJOreEge fkIjrZwbNSpoFTshZ965TSUz yEqvHGBpsJ1sOZIukJHjqFfqEW 4wNTBpbjsnPlNURUlOLCBWSVJH JH1HKWVOLQB0H8VnZzj8FIUp iGqhOU4odNKtQPdfLv7pfZbznU nwGR5pKKQfuwfhJTKyfR4cMWLs vDEjeDobQW6zLXRkmuhxz043 PvQyLCV9OYTcaWBpR9OywR1jEa JiMFDgMNNeX6YkvVSyAJinU406 FMrlCoM3BIRdkuZxY7ZfTDLy oRnrWvX9z3B4Da7lIL1jBC7hUZ woHL91MH55eEJuw0K2lNO7V4Wj MVPrelfurejdvNT8CDYyHCUr sY43bTAwBGguZh3sc5X4n754BA HvBBDooM63Oy7zjUfeEWClqDBZ qG9uctzzo7bbuyxvMjSiMQZp EKc1TIe8XAMsmRjzSpXjCIH1Ml T1NJC4bWMovU7tbMvyitxqvO6m Oyc+KszdEWGzexP7Z6GnDkw5 JBGgdCkiTS9nuUSdKStkOy2rlS mxvKoqQM0hIMRhdpdpUSOmjE8w GYLguEWnbByuUZ3zLBEqmlvg z681NwCsOYH0YTRltOTyY2UujM 8bGtXsGWFjPGYoA0MosOMfCRgy U901GMgxHcW3BSHvzbEtA7Vo CGLdkHojKfS1a7P8Gw3VZX8QRT J8Q3JbBpz7GRNxtEhfXH2zmWGu IHdiJp4fzPzikWabPY7dIBGd ogttXDYylA8gALYwpQGxjQcvVA 2tTGWhoackc855EnDuFIM4OOYj jFSdD7EgiS1lVfVdOGVjLTSi Q1JqmQHfCRosY950IVhvCtL2IB DtgrSuQ8EwYDLulMugKkS3d0B7 Jd5CKBqbmMP+OT65ks14U0Wu NmheYod9FMIjAIU1xTC5hX8sMG SfTThvz1A9lFL1R3EiwqUbmp9y i8wfLFKjFQjbS87nxREgc7D9 SPVlfAT2IXXxvFslMkIooM76Xz c+YHZpyYkls8ZzVnemi8ijm8jx hWk0AeXiBIVsrsDeqBjeNIS6 l2WvXb60C47tKWiiHYOjYPOdIX YdXXOhlVyade9isV2nFp5+PGNv cPI1fEU9oC4nVrVkAzE7ZMbq J120VvKgwGPaHvlxr9qby0hxiW g9BwPoGCUbtaCdrFmiDBF2b5Ss Vk69B3HcjWhdm9ApJwb6ay41 hTVgq5Z5fOR9Y0QqXBIwoygtgT KnyMhhLB6jDCIbvgbiCERhoZ8x DFQuB2k8XjRrNdN4AIveH0Vi paP0PIOqgFAkXTDeoZMXeJ4cgy cxa2cztreiFiXqHTInSLh1DLn1 ENUrkAisOmFrXMT7UyA0YLX1 lQZkeV7bnHrfmvuliA2bDqm+UG m5h8omnMZmPO8cwAZ6UT28GT96 lJYnj7H6sBX8K3VnOOSipsce pfvavZG3AIFbVLRexG47Go7tnQ gjBh2bBYUkIYN8WKDehNOdG9Bj qV5tTvUtOYUgOYRiN7FdsLSq LYvxA486NFtgXzI7OXOuwsVdU7 YxRLNimIjpBwF6b2O3Pz9HAY24 BD90PE14bXUzz3Z4hBI8S5Xm SBSzyhwjvvbufPA6UPIoVIOcwL 87Xj5hvDkqRw2nVUZkWUY4GCMe gDGyW0RfdU4gVhSdCFDaPKPi K2HkfLBbZZtkM952XDfzEjA7JU RlbhQfU7CbHAVvrHyyDyH5a3I6 Bq1MFb74LR22QK44zMEwr5U3 lEO9N1DyVFHrtwwqccdfnFT8RW KaWZAdyU62Ab0mpMmtMy2rNSDv FIJ6YLAseDHfK1EgrD4fLzXc QMXgUFFmN3EnkJOxVTquY273AQ mpVtT0VDCajsPoV9SoRFChjCez EcZ9s5I1Do0BGStwcxv5K3Yj PjwvdHI+QD09HETiQS28oWAaqW Mlr9qgsQu7IlQbEWPlILY8sGgs ZIwzj7FdTJFtF30boIHtn6O9 IGN (more content not included)... [facility] Coding Summary HTMLBase 64 FtebshvwNZk9gNo+PGhlYWQ+PE 9MVTHeY54akQRfpH5DJ0iSLQ0S MUIVDUWZRW4VBD9qdLX1VEtkR0 VybiAv FxrwhSSrDQ87WOn6WWT0rEmiFD uoqC9bfFZeJ6k5YbZwJJ44aW83 GWjhQZTmCxE6CfAkogqrpJAd K3sqGwCebEFbXmg+PHRhYmxlIH hlTECwCYvzRDNaAlRihJdeZT3i Zg7jCJLxRRKdaPuucOKcRrVq i3zpZIAsHMquUX5lyTgkO9YreT F8THBtk4p9Rq56mBB+PHRkIHN0 pHvzXKasp969RnHzw9gtUKN5 xCEkMYqePON6H25am0M4XSXaLY IpOMU4xPB3vE3ftZpvqmlxE7Ho fIIgZqH0UPN5uFMmsW9odJir qnuurZ0hGuc+G44XDF4ACPHXAD 2TVek5N0BjOgwqzWX+QM43WZRl IN96rXZtfDObu3nooYf8EcKx VLTyCOD2qXwaCZocf8XmBWSaK9 5uaEIdn3R1MMPhnTbqgTWuIoQe aPB6zP9kSLmxbdbgk4corwll Okvye9wmha19sP75C41zOAixVK DaDKD8DVFrJNWhjEsloz6qgG1c Ii8+BEnke0mmr0vysGx3SgUq IMPiftKecNaaRLU5f6PvWn92J6 FqiOdlt5NzUjd8xw14fLHoc6X8 aUO0HCgfLWUktO8gCMcvAcW5 QWMhYxXkgR31gJYdWUjgBr5okT dyzVlpBX1wFRNgpsgmGQNlnU3r YTKyjMUyyWhvEN5mALSxmrzx s339YkMpYNX0ESIheMWbC1HxkT 7aFyDtCBYyLPNvR0WkxIImTWbx Q757DEchLvO3FEXkwoGmR5Vn GUIjvRcoXtP4x3J9Ra4Ho6Pmqh boCXX6CImhHAF2QzH4IeNuIaJ7 K8FwOea2NNTflNpsPM9xU3Kg LPPzdsifntmfhUC3QUAjPDNyuL 09sZOeCVwkBl2px3D9i641ORDj EMFfuX20Rc6zpXoeBEYhhRRI kM3buospr7yauftpCyEdUTNeXP m3BDy4QWOjaAkxElXuDHJ2EpA4 MEB8mYRvlI4yoNbbqwgdsK8d Oyc+F30aoG7iJSZ6SIF8ndjzMU HxltCwBS04RJ98K9VqNcabwSNp bGU+YEEclsCozRasYP1yYeTu z7tir4DeWYvnL7ClUXCuGKyiRo w8NEYsRNX5xPW6bZ9rJOFbOJrh b4G5lYD0T1WrxgYqmu5lk1qr CMHbKBfdN68bpOVif1W3IXHqsM C5KKOetIlfSiQmiH15Odp+PGNv pQgro8AcKovis2sde4hfpIc3 IsBnPYUenwWtzRehYLI8h9TcAu 67V03kXGvbYETyUYAvMVSdXDOx cUdqtf0wxO9bKs4+PGNvbCB3 tMG6sX9iJZOjTcX5GGvrV887Ae RbfNPtBclvl5fbb2eykEn9IgMd LHBialRzjPokJJK4w4RhLh53 P45sZRzzWIKiIDFzLCNaPGQtkJ mwpl0qfC5sWh8+MQ9tg1drdr50 kZ03lXO+BOMxCAC3eZwaUIen XZOkhR8yISogIeU1HAHkZeIjqP 92aDAhDUczDr5geYfdaEblJW8t VYBneseth411BvEab1rcEDSk oNUvKPiuWSA3D01iw1M4OZTsIH GaNRT2kFN7kD4neEcqcufpcSKc jFrubiWsiTzmMFotGSwiX331 IHRvcDsnPlBhdGllbnQgTmFtZT z4Y3UaUce3LWAocTbtPV4npDZe UHgnPu9fcAbqbOisHU1eJCLk sumqm218EcMxu0cgEIEyeLOwWR haEYT3Q09kt6S3HDRaEHNqFQW5 qDJ6qK1twIrqqmkquFWfwWvg deUikLotNLjvRXykD172QJCozS qtEyXwhlAfQJLtlQX9IW81CB14 tCYnj0P0bST4X4VwIKIgoggi pgoitPJ9WXQjPWXwbH84Dz6qlQ duPh5cQACnWAY7GGBjhWGmN7We pH0jBxCxGIJrQIQuD0YzvBJn ZGbqH992YPyfJhX4KIYgfxSjD2 TqHLXujDztJiH1y9M7Gm6SL8B7 LO75HR14nSNvj6N6xXX1D9Yp AUKdrfvgggnbgWZ9NHBeTSBtbC 59Zr6cgQaoJl1lLDKfTJK3RDCv dHDcC7FbsV5nTtWzMRAdBVCk T4NeeLBqKUwvU351MRxkAyL1LY DbbuPbL8RpNJSuxJrkZkB2h3L2 Gc9BJXq7UT50EY77hFCau8Z1 vBD0U3LxMIPuclzlfiwsnEZ1ZT SxLBTseQ52Zh1jdPwqTi5fWRMk IIC2SBPxlRObT4RwmU4fWiQs CMHcAJBrN8SmfXXyPPzfF173BS ggAuG0ZZZipuGaM2ByBSAsoEyh DuV1d7G5Mj6DSNBxUN98OGC6 oYW2WA95JB14L5NaApgkhLSvlY U+PHRhYmxlIHdpZHRoPScxMDAl PaCeuVuvOZ1tRv4rGMPbGMHu rIvzmKIbReZbi4asGJDvORodEV 4clZyaO6RjfEK6BIBnh8o6Pj45 F66mZ5TroFB+TCKleSN7gFI5 kY9jTnUsSaX9WWmfL779AzJfdM WqJrzmh4vtj7sdaOi2KwZ4FAZp stZdhOlxUHL8b8SpKa68O83n IHdpZHRoPSIxNSUiIHZhbGlnbj 8haA5aLp6+MAZrnWN5xIZ9fR3i FaYsCuU2AWtrN446ScPjhIPg Fitru4ypp8yksRr1BgCzFBHxro OgoNarPYK9j5GsUk74S3RavNyk q9QkWjf2vd07vFHyd4B3lJN5 G1XtFTLwraspiZDloKgeOR7zOA VocexhFDVawL0fVQIxV9d9BeNc MwJ8NByyK8NjozW8AIQfcNOd JUgsFRK6I70ft7C1MZLwNIHsQO A0zAO2vV6ukWhvbtrwkRIloUvh qmMlwFilDIflWQdmC449ICKc vSnaPSJktR8lAQOnyMIgkBmiYZ 4wNTBpbjsnPlNURUlOLCBWSVJH BD8VCTGASVI5J0KqPmm2PBIr eVchTC2krDZdESsfDw3irHhneQ juVZ5bQCYlpzsqPQJazS9sAXKk vTSddMseFP5jZFGadqqhl277 PzNoYOR2XPTqnNJtK5IocI9vPa FrFTBrYCXhE4XllZTuARfsP942 OZwbZzG6SEJlajDaS6XtEAMu qEllVvL3s1D0Sg4zWQ0kZP7eVT plTI16OH53xQZxr4L3sUB3M1Rp DZUzzpoqqnisrQL0NVTlCRRi oH37kRXoVZqnWt3ol1L8v439JP SdBFUokC84Ny0zqQyxGAUmePQQ fG6amcqpj1ovvmrwCwVtEQLm ZOf8CTe6USKhcFgcZbPrCKA5Nf I4MQC9aTVriN1yeAjeamwpyG3f Oyc+VukwIZFupaD7O5WcFus7 QEHefQnuUF5xzHUtYJtlOt5riL pavVkhKE8rROQaeyqrIBXpnA3c KAHvzHLbnBcoZP7oRXNlervx h951GnVeSRT3FLJtkJZfT1EuzF 0oHqJnZZZjKWQuL2FlmKZrDGjk W415WThdRdM8ZTUztaRsM7Em CAJlfVbgGoV7r8R5Ru1PDZ4GVH H3X6HvHxf6ZPJdgIlpAF4frAQd FYroFm7rnBqfqXvqVZ6oVFXa dnvyTTJwtF9gFPEbeCWezStdCO 9uZKKsaryiz292UnRiUQD8MEQg bOUvB7ImqN3bWzGyWKNkARRb Y9HzrFHfCJvmZ337BQkmDqU4MA AncgHkV1SyCPTuvSczEtP9q6X1 Ff4XjOFtZ1BpT5g3X1KuJocd dHI+NR88PWJmSB02tZXnmZUgd2 pgmWw9NmYrWKSyDMJ1sFwsZWix m0IqJRIjL73aaKAsg9M6HEOe pApfcYRmRkFyiEL1lQ3fNCqvyx dim6ivnxyfInrjc3rpif10iL06 B24kNXdsKNZjFSPfTLObLQFb gGfzzh0liZ4gTc2+CHTmnGA0dJ I1mI7eLmMyKcF0ANpsY424QoMv jASfVjelq7voq5bkoEu2MqDi DDKqosKkcHywITD3d8CxRx53S4 9sIHdpZHRoPSIyMCUiIHZhbGln aq0ooD0pVt9+JT0bo5gapy21 wU63uWI+VOKoMWV4pKihYIzzDX QcuV3yIGtdVpH9ZINoPfSpkU60 zYEvFWouSx8djTxwnPekWW6z PAOshobql957JiCix4lpLMHuiL MbAOarPYI0D80td8E3JFMuTNIl KHO3lUT0gR5zsSfzerynvYUo xIpgyaOgiLrzECogSVwlY759XG UamHomTdUcdUGiO9eaewELUV7o OjwvdGQ+QKOcJZW3yXmeMSrd MBZygC1pFMTqA3q0JrKcLsZ9DY pdI5NhizA2DTSbxFJdLDDgoDJH vX7ekedif3vywbfqZoLsCZPt FTa6UYr7OGFpvXiuQvCqKJA1Ub K7ZML1qVIntD7gfDqllbtksV5g Oyc+RklOOjwvdGQ+PHRkIHN0 lTizNFonLEIlvF6dGMYjF4n8Wx ZwKhJ0EGbtO9XspoZ6KEHttEEm UZXvgYIRzP4agqrmb2sayhjm CdItOHSrXDo4KZh1SJNueRihEd NkKQR2SjZ6GJH1nLCbyZ1wmZps zwbvaU0kDrd+TVJOOjwvdGQ+ JRXiFJU1dIxtIFerMPLyfG6kRT PrR7g8SwJzBnA3NFieU1MvxsW6 SFYemXOfHEEacPBBqZ5mtbwj c6kugomrCjDjUNQgYUd9PSp7LQ QbtTqdIvAjOCW1ZtD3NVW6sOPj dS4gnHfrozuzfO2kIke+UGF5 BXV2QG63PW43F5XvTpcvkIOitB U+PHRhYmxlIHdpZHRoPScxMDAl DuZjcXynQJ9cEb2wCYOiAWHx bGx (more content not included)... Normal [facility] ED Clinical Summaryon 2021 ED Clinical Summary [facility] - Emergency Department [address] [place] [address] ED Clinical Summary PERSON INFORMATION Name: ZULEIKA WYATT Age: 31 Years Sex: FEMALE : 1990 MRN: Acct#: Visit Reason: Rib/trunk pain-swelling; ABD PAIN Arrival: 11/13/2021 16:30:24 Discharge: 11/13/2021 18:01:00 LOS: 000 01:31 Check In: 11/13/2021 16:30:24 Checkout:11/13/2021 18:01:00 Address: [address] [place] [address] [address] [facility] [address] PCP: Andie Stoddard PROVIDER INFORMATION Provider Role [...] With: Address: When: DIANA, CUONG [address] [place] [address] Within 1 to 2 days [...] results be sent to Dr. Ortiz, your PAPER MILL SUPERVISOR physician. She will contact his office tomorrow [...] Patient/family/caregiver verbalizes understanding of instructions given Comment: [facility] ED Note-Nursingon 11-13-2021 ED Note-Nursing pt [...] 6 with steady gait and no assistance. [facility] ED Patient Summaryon 022 ED Patient Summary [facility] - Emergency Department [address] [place] [address] PATIENT DISCHARGE INSTRUCTIONS Patient Information Name: ZULEIKA WYATT Age: 31 Years Date of : 1990 Reason For Visit: Rib/trunk pain-swelling; ABD PAIN Arrival Time: 11/13/2021 16:30:24 Primary Care Physician: Andie Stoddard Attending Physician: Gamaliel Wyman MD Comment: Visit Diagnosis: Diagnoses This Visit Elevated blood pressure reading (R03.0) History of abdominal pain (Z87.898) at early stage (Z34.90) Rib/trunk pain-swelling ([id number]) Prescription Information: If you have been given a prescription for narcotics, seek immediate medical attention if you have any difficulty breathing or any sudden status changes such as confusion and sleepiness. If you or anyone you know is experiencing suicidal thoughts, mental health, alcohol and/or drug addiction problems; contact the [facility] 07/01 Crisis Hotline -Text 4HELO to 650530. If you received any narcotics, sedation, or [...] legal documents With: Address: When: CUONG ORTIZ [address] [place], [place] [id number] Within 1 to 2 days Comments: Diagnosis [...] results be sent to Dr. Ortiz, your PAPER MILL SUPERVISOR physician. She will contact his office tomorrow [...] and treatment you received today in the [facility] Emergency Department were for an urgent problem and are not intended as complete care. It is important for you to follow up with a doctor, nurse practitioner, or physician?s assistant laboratory director for ongoing care. If your symptoms become [...] so we can reach you if necessary. [facility] Emergency Department has provided you with a complete list of medications post discharge. Please inform your manager talent management/provider of your visit and for further instruction on these medications. Any specific questions regarding your chronic medications and dosages should be discussed with your primary care physician(s) and/or pharmacist. New Medications Printed Prescriptions [facility] Prescription (Quantitative beta-hCG) Quantitative beta-hCG. Please call [...] Temporal: 3 (more content not included)... Normal [facility] hCG Quantitativeon 2 hCG Quantitative 12545.0 mIU/mL High 0.0-0.6 [facility] Comment on above: Order Comment: Lucy whitney call or fax results to Dr. Ortiz's office Result Comment: Resu lt confirmed by dilution Post-Menopausal Reference Range is: 0.1-11.6 mIU/mL Performed By: #### 7 [id number] #### [facility] (DEFAULT) [address] [place] [address] Coding Summary.on 12-19-2018 Coding Summary. CODING DATE: 019 [facility] STATUS: Left Against Medical Advice PAYOR: [...] Boykin Date Saved: 12/19/2018 10:35 am Normal [facility] ED Clinical Summaryon 2018 ED Clinical Summary (Inserted Image. Elena ble to display) [address] [address] ED Clinical Summary Person Information Name: ZULEIKA VILLALTA/[facility] Age: 28 Years : 1990 12:00 AM Sex: Female Language: PCP: Marital Status: Phone: [phone] Visit Id: Visit Reason: Test; MENSTRUAL PROBLEMS [...] 12/15/2018 5:58 PM 12/15/2018 5:58 PM ADDRESS: [address] [place] [address] [place] [id number] PHYS DOC NOTES: MEDICAL INFORMATION: Prescriptions Given: PATIENT EDUCATION INFORMATION: Instructions: Follow up: DIAGNOSIS: Normal [facility] ED Patient Education Noteon 12-15-2018 ED Patient Education Note Normal [facility] ED Patient Summaryon 019 ED Patient Summary (Inserted Image. Elena ble to display) [place] [id number] Patient Discharge Instructions Person Information Name: ZULEIKA VILLALTA Age: 28 Years Arrival Date: 12/15/2018 4:37 PM Discharge Diagnosis: Primary Care Physician: Provider Information Primary Provider: Advanced General Education Instructor:None The exam and treatment you received in the Emergency Department were for an urgent problem and are not intended as complete care. It is important that you follow up with a doctor, nurse practitioner, or physician?s assistant laboratory director for ongoing care. If your symptoms become [...] opioids can be used to help relieve muvdyede-bv-luifxb pain and are often prescribed following a [...] be struggling with addiction, tell your health chronic care nurse and ask for guidance or call [facility]?S National Helpline at 0-282-080-HAIZ. r Source: [place] Department of Health and Human Services/Center for Disease Control & Prevention [facility] Medications Given: Medication Dose Route No medications found. Medication Information: Comment: Pharmacy Information: Thank you for choosing [facility] Patient Education Materials: JADEN Jacome [place] , have received the following patient education materials/instructions and have verbalized understanding: Patient Education Materials: Follow-up Instructions: Prescriptions: Patient Signature __ Date Clinician/Nurse Signature Date 12/15/18 17:58:10 [facility] Progress Note-Nurseon 2018 Progress Note-Nurse Patient: [...] to take care of her daughter. Normal [facility] U BetaHcg Qualon 12-15-2018 HCG.beta subunit (U) [Moles/Vol] Negative Normal [facility] Comment on above: Performed By: #### 2 [id number], [id number] #### [facility] [address] [place] [address] UA With Cult Reflexon 2018 Bacteria LM Ql (Urine sed) TRACE Normal Trace [facility] Comment on above: Performed By: #### 2 [id number], [id number] #### [facility] [address] [place] [address] Bilirubin Ql (U) Negative Normal Negative [facility] Comment on above: Performed By: #### 2 [id number], [id number] #### [facility] [address] [place] [address] Clarity (U) CLEAR Normal Clear [facility] Comment on above: Performed By: #### 2 [id number], [id number] #### [facility] [address] [place] [address] Color (U) YELLOW Normal Yellow [facility] Comment on above: Performed By: #### 2 [id number], [id number] #### [facility] [address] [place] [address] Epithelial cells.squamous LM.HPF (Urine sed) [#/Area] 0-2 Normal 0-2 [facility] Comment on above: Performed By: #### 2 [id number], [id number] #### [facility] [address] [place] [address] Glucose Test strip (U) [Mass/Vol] Negative Normal Negative [facility] Comment on above: Performed By: #### 2 [id number], [id number] #### [facility] [address] [place] [address] Hemoglobin Ql (U) Negative Normal Negative [facility] Comment on above: Performed By: #### 2 [id number], [id number] #### [facility] [address] [place] [address] Ketones (U) [Mass/Vol] Negative Normal Negative [facility] Comment on above: Performed By: #### 2 [id number], [id number] #### [facility] [address] [place] [address] [place].plasma/[place] .RBC (Bld) [Mass ratio] 0-3 Normal 0-3 [facility] Comment on above: Performed By: #### 2 [id number], [id number] #### [facility] [address] [place] [address] Nitrite Ql (U) Negative Normal Negative [facility] Comment on above: Performed By: #### 2 [id number], [id number] #### [facility] [address] [place] [address] pH (U) 6.5 [pH] 5.0-9.0 [facility] Comment on above: Performed By: #### 2 [id number], [id number] #### [facility] [address] [place] [address] Protein (U) [Mass/Vol] Negative Normal Negative [facility] Comment on above: Performed By: #### 2 [id number], [id number] #### [facility] [address] [place] [address] Specific gravity (U) [Rel density] 1.010 1.005-1.03 0 [facility] [facility] Comment on above: Performed By: #### 2 [id number], [id number] #### [facility] [address] [place] [address] UA Spec Desc Clean Catch Normal [facility] Comment on above: Performed By: #### 2 [id number], [id number] #### [facility] [address] [place] [address] Urobilinogen Qn (U) 0.2 {Pamela'U}/dL Normal 0.0-1.0 [facility] Comment on above: Performed By: #### 2 [id number], [id number] #### [facility] [address] [place] [address] WBC Auto Ql (U) Negative Normal Negative [facility] Comment on above: Performed By: #### 2 [id number], [id number] #### [facility] [address] [place] [address] WBC LM.HPF (Urine sed) [#/Area] 0-5 Normal 0-5 [facility] Comment on above: Performed By: #### 2 [id number], [id number] #### [facility] [address] [place] [address] Auto Diffon 12-12-2017 Basophils Auto #/vol (Bld) 0.1 E3/mcL Normal 0.0-0.2 [facility] Comment on above: Order Comment: Order Added by Discern Expert. Performed By: #### 2 066478 ####KADEN BairdVzsLaso[address] [place] [address] Basophils/100 WBC Auto (Bld) 0.9 % Normal 0.0-2.0 [facility] Comment on above: Order Comment: Order Added by Discern Expert. Performed By: #### 2 256628 ####KADEN BairdLzeCsko[address]33 [place] [address] Eos Absolute 0.0 E3/mcL Normal 0.0-0.7 [facility] Comment on above: Order Comment: Order Added by Discern Expert. Performed By: #### 2 146758 ####KADEN BairdGzbEsca2251 [place] [address] Eosinophils/100 leukocytes 0.4 % Normal 0.0-11.0 [facility] Comment on above: Order Comment: Order Added by Discern Expert. Performed By: #### 2 145520 ####KADEN BairdNxlPcbo[address] [place] [address] Lymphocytes 1.4 E3/mcL Normal 1.2-3.4 [facility] Comment on above: Order Comment: Order Added by Discern Expert. Performed By: #### 2 909394 ####KADEN Luceroo[address] [place] [address] Lymphocytes/100 leukocytes 16.6 % Low 20.0-55.0 [facility] Comment on above: Order Comment: Order Added by Discern Expert. Performed By: #### 2 665667 ####KADEN [address] [place] [address] Bryan Absolute 0.5 E3/mcL Normal 0.0-0.7 [facility] Comment on above: Order Comment: Order Added by Discern Expert. Performed By: #### 2 102555 ####KADEN [address] [place] [address] Monocytes/100 leukocytes 5.5 % Normal 0.0-10.0 [facility] Comment on above: Order Comment: Order Added by Discern Expert. Performed By: #### 2 841104 ####KADEN [address] [place] [address] Neutro Absolute 6.7 E3/mcL High 1.4-6.5 [facility] Comment on above: Order Comment: Order Added by Discern Expert. Performed By: #### 2 054281 ####KADEN [address] [place] [address] Neutro Auto 76.6 % High 37.0-75.0 [facility] Comment on above: Order Comment: Order Added by Discern Expert. Performed By: #### 2 231217 ####KADEN [address] [place] [address] CBC w/ Auto Diffon 8 Erythrocyte distribution width Auto Ratio (RBC) 15.0 % High 11.5-14.5 [facility] Comment on above: Performed By: #### 2 386736 ####KADEN [address] [place] [address] Erythrocytes (RBC) 4.94 E6/mcL Normal 3.90-5.40 [facility] Comment on above: Performed By: #### 2 743737 ####KADEN [address] [place] [address] Hematocrit (HCT) 40.0 % Normal 36.0-48.0 [facility] Comment on above: Performed By: #### 2 066155 ####KADEN [address] [place] [address] Hemoglobin mass conc (Bld) 13.0 g/dL Normal 12.0-16.0 [facility] Comment on above: Performed By: #### 2 317210 ####KADEN [address] [place] [address] MCH 26.2 pg Low 27.0-31.0 [facility] Comment on above: Performed By: #### 2 861390 ####KADEN [address] [place] [id number] MCHC mass conc (RBC) 32.4 g/dL Low 33.0-37.[address] [facility] Comment on above: Performed By: #### 2 922217 ####KADEN [address] [place] [address] MCV 81.0 fL Normal 78.0-100.0 [facility] Comment on above: Performed By: #### 2 799863 ####KADEN [address] [place] [id number] Platelet mean volume (PMV) 7.5 fL Normal 7.4-11.0 [facility] Comment on above: Performed By: #### 2 031803 ####KADEN [address] [place] [address] Platelets 347 E3/mcL Normal 130-400 [facility] Comment on above: Performed By: #### 2 232901 ####KADEN [address] [place] [address] WBC (Leukocytes) 8.7 E3/mcL Normal 3.6-11.0 [facility] Comment on above: Performed By: #### 2 387641 ####KADEN [address] [place] [address] CMPon 12-12-2017 Alanine aminotransferase (ALT) 14 Int._Unit/L Normal 10-40 [facility] Comment on above: Performed By: #### 2 233904 ####KADEN [address] [place] [address] Albumin 3.8 g/dL Normal 3.2-5.0 [facility] Comment on above: Performed By: #### 2 022962 ####KADEN [address] [place] [address] Albumin/Globulin Ratio 1.0 {ratio} Low 1.1-1.9 [facility] Comment on above: Performed By: #### 2 886795 ####KADEN [address] [place] [address] Alk Phos 75 Int._Unit/L Normal 42-121 [facility] Comment on above: Performed By: #### 2 829633 ####KADEN [address] [place] [address] Aspartate aminotransferase (AST) 18 Int._Unit/L Normal 10-42 [facility] Comment on above: Performed By: #### 2 702837 ####KADEN [address] [place] [address] Bili Total 1.0 mg/dL Normal 0.2-1.0 [facility] Comment on above: Performed By: #### 2 202310 ####KADEN [address] [place] [address] BUN/Creatinine Ratio 12.5 ratio Normal 5.4-30.[address] [facility] Comment on above: Performed By: #### 2 641265 ####KADEN [address] [place] [address] Creatinine 0.8 mg/dL Normal 0.6-1.3 [facility] Comment on above: Performed By: #### 2 821324 ####KADEN [address] [place] [address] Globulin 3.8 g/dL Normal 2.0-4.0 [facility] Comment on above: Performed By: #### 2 441707 ####KADEN [address] [place] [address] Protein 7.6 g/dL Normal 6.4-8.3 [facility] Comment on above: Performed By: #### 2 031140 ####KADEN [address] [place] [address] Urea nitrogen 10 mg/dL Normal 7-18 [facility] Comment on above: Performed By: #### 2 664436 ####KADEN [address] [place] [address] Calcium 9.3 mg/dL Normal 8.4-10.2 [facility] Comment on above: Performed By: #### 2 062067 ####KADEN [address] [place] [address] Chloride 105 mmol/L Normal 98-107 [facility] Comment on above: Performed By: #### 2 675751 ####KADEN [address] [place] [address] CO2 25.1 mmol/L Normal 24.0-30.0 [facility] Comment on above: Performed By: #### 2 395114 ####KADEN CfjHith3571 [place] [address] Glucose mass conc 101 mg/dL High 70-99 [facility] Comment on above: Performed By: #### 2 457033 ####KADEN IlgUeyt4059 [place] [address] Potassium molar conc 3.4 mmol/L Low 3.5-5.[address] [facility] Comment on above: Performed By: #### 2 596094 ####KADEN TjpMlnl3450 [place] [address] Sodium 140 mmol/L Normal 136-145 [facility] Comment on above: Performed By: #### 2 897624 ####KADEN [address] [place] [address] Lipase Levelon 12-12-2017 Lipase Lvl 30 U/L Normal 8-57 [facility] Comment on above: Performed By: #### 2 590057 ####KADEN [address] [place] [address] UA Completeon 12-12-2017 UA Blood 3+ Normal Negative [facility] Comment on above: Performed By: #### 2 549676 ####KADEN [address] [place] [address] UA Bacteria Trace Abnormal None [facility] Comment on above: Performed By: #### 2 881491 ####KADEN [address] [place] [address] UA Clarity SltCloudy Abnormal Clear [facility] Comment on above: Performed By: #### 2 027746 ####KADEN WkcXdmf66[address] [place] [address] UA Hyal Cast 0-2 Normal 0-2 [facility] Comment on above: Performed By: #### 2 297210 ####KADEN [address]hNsbj[address] [place] [address] UA Leuk Est 3+ Abnormal Negative [facility] Comment on above: Performed By: #### 2 792624 ####KADEN [address]cvq[address] [place] [address] UA Mucous Many Abnormal Trace [facility] Comment on above: Performed By: #### 2 398384 ####KADEN LubFlsw[address] [place] [address] UA Nitrite Negative Normal Negative [facility] Comment on above: Performed By: #### 2 501992 ####KADEN GgoUglk[address] [place] [address] UA pH 5.0 Normal 4.6-8.0 [facility] Comment on above: Performed By: #### 2 957977 ####KADEN [address] [place] [address] UA Protein 1+ Abnormal Negative [facility] Comment on above: Performed By: #### 2 286895 ####KADEN QyfGnrg[address] [place] [address] UA Spec Grav 1.026 Normal 1.003-1.03 0 [facility] Comment on above: Performed By: #### 2 398957 ####KADEN XttXzpw6170 [place] [address] UA Squam Epithelial 0-5 Normal 0-5 [facility] Comment on above: Performed By: #### 2 852225 ####KADEN TwsTifd[address] [place] [address] UA Urobilinogen 2.0 mg/dL Abnormal [facility] Comment on above: Performed By: #### 2 255435 ####KADEN BairdXlfWejr[address] [place] [address] UA WBC >50 Abnormal 0-5 [facility] Comment on above: Performed By: #### 2 521726 ####KADEN BairdLthBytu2181 [place] [address] Urine, color Yellow Normal Yellow [facility] Comment on above: Performed By: #### 2 811303 ####KADEN BairdHnhVtbo26[address] [place] [address] Urine, erythrocytes 20-50 Abnormal 0-3 [facility] Comment on above: Performed By: #### 2 155484 ####KADEN [address] [place] [address] Urine, glucose Negative Normal Negative [facility] Comment on above: Performed By: #### 2 165944 ####KADEN [address] [place] [address] Urine, ketones presence Trace Normal [facility] Comment on above: Performed By: #### 2 536105 ####KADEN BairdLndBydb7740 [place] [address] Urine, urobilinogen Negative Normal Negative [facility] Comment on above: Performed By: #### 2 178711 ####KADEN BairdRhiNeho[address]0 [place] [address] eGFRon 12-12-2017 eGFR AA >60 Normal [facility] Comment on above: Order Comment: Order Added by Discern Expert. Performed By: #### 2 475416 ####KADEN BairdQbmUdfa3668 [place] [address] eGFR (non-black) mL/min/{1.73_m2} Normal [facility] Comment on above: Order Comment: Order Added by Discern Expert. Performed By: #### 2 183723 ####KADEN BairdLotPxmm11[address] [place] [address] HISTORY PHYSICALon 8 HISTORY PHYSICAL HNO ID: [id number] thor: Clara Olivia WolfeService: Maternal MedicineAuthor Type: PhysicianType: HANDPFiled: 12/02/2017 [...] 4 weeks with provider.Clara Jama, DO Normal [facility] PROGRESSon 12-02-2017 PROGRESS HNO ID: [id number] thor: Marie Lema (Res) LendeService: ObstetricsAuthor Type: [...] with more than 50% of the total ximy-ch-icglgqhy of the visit in counseling / coordination [...] decreasing.Ambulating without difficulty.OBJECTIVE:PHYSI GEN EXAM:Heart: RR, S1, P4Nteev: clear to auscultationAbdomen: Soft Bowel sounds present [...] SOCIAL WORKon 12-02-2017 SOCIAL WORK HNO ID: [id number] thor: Meredith Jackson (Sw)oService: Social WorkAuthor Type: Social WorkerType: Social WorkFiled: 12/02/2017 12:25 PMNote Text:SOCIAL WORK CONSULT NOTESERVICE DATE: 12/02/2017SERVICE TIME: 1015Referred by: Jose for visit:Maternal/Infant - adjustment to conditionLiving Arrangement: HomeLives With: PartnerFinancial Resources: DisabledPrimary Contact:Extended Emergency Contact Information DARRELL BRANCH IIPrunc health [facility] - [facility]elaida Emergency Contact: No,ContactRelation: OtherSupportive: YesOther Important Patient Contacts: FOB family (Alma and Salomon Munoz)Health Insurance: MedicaidVirginvineet Villalta is a 27 year old female with 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 RN adds FOB has been with pt and infant continuouslyfor support.Met with pt and FOB (Darrell rBanch) in room. Pt presents as friendly anddiscussed [...] hospital. (FOBparents are Anamika Munoz of [address] [facility]).Per pt and FOB, all needed baby supplies and equipment are at the [facility] and a nursery has been set up.Per pt, name of baby girl is Martha Branch.Pt states she is on SSI and WIC.Pt shares that she is in ongoing counseling at [facility] in [place] and has appointments 2 x per month.Discussed with pt and FOB signs and sx of depression; safe babysleep and discussed ways to deal with crying . Pt again states sheis going to rely on her support system.No additional issues identified at this time. Encouraged pt and FOB toutilize services through [facility]. Providedcontact information.Outcome/Recomm endations:[facility]istance through [facility]ENTERime spent (minutes): 60SIGNATURE: CARLA Goncalves PATIENT NAME: Zuleika Hernandez: December 02, 2017 : 11:10 AM PAGER/CONTACT#: Debo [facility] ANES INTRAOPon 12-01-2017 ANES INTRAOP HNO ID: [id number] thor: Terrance Lockhartervice: AnesthesiologyAuthor Type: Nurse AnesthetistType: Anesthesia IntraOpFiled: 12/01/2017 9:41 AMNote Text:ANALGESIA PROGRESS RECORDCATHETER REMOVAL/END OF CASESERVICE DATE: 12/01/2017REMOVAL DATE AND TIME: 11/30/2017, 1953DELIVERY DATE AND TIME: 11/30/2017 at 5:49 PMCATHETER REMOVAL:Catheter Removal: See [facility]AY[facility]DMiky Nursing noteSIGNATURE: Terrance Contreras APRN.CRNA PATIENT NAME: Zuleika Hernandez: December 01, 2017 : 9:40 AM PAGER/CONTACT #: Debo [facility] ANES Keke 12-01-2017 ANES POST HNO ID: [id number] thor: Terrance Leblanc) JohanngService: AnesthesiologyAuthor Type: Nurse AnesthetistType: Anesthesia PostOpFiled: 12/01/2017 9:43 AMNote Text:POST ANESTHESIA EVALUATION NOTESERVICE DATE: 12/01/2017SERVICE TIME: 9:42 AMDOB: 1990Vitals: 12/01/1799Temp: 36.7 ?C (98.1 ?F) 36.8 ?C (98.2 ?F) 36.4 ?C (97.5 ?F) 36.4 ?C (97.5?F) 12/01/1799P: 119/55 102/61 107/57 116/72 12/01/17993Pulse: 90 79 65 78 12/01/1799Resp: 20 16 [...] [facility] PRO[facility] 12-01-2017 PROGRESS HNO ID: [id number] thor: Marie Lema (Joaquín) LendeService: ObstetricsAuthor Type: ResidentType: Progress NotesFiled: 12/01/2017 [...] decreasing.Ambulating without difficulty.OBJECTIVE:PHYSI GEN EXAM:Heart: RR, S1, Z3Mfito: clear to auscultationAbdomen: Soft Bowel sounds present Fundus firm below umbilicusNon-distendedLAST VITALS:Pulse BP Resp O2 Sat Temp Pain 65 107/57 20 98 % (98) 36.4 ?C (97.5 ?F) 0/10HT/WT/BMI:Height Weight BMI 167.6 cm (5' 6 ) 88.5 kg (195 lb) 31.47LABSDiagnostic tests reviewed for today's visit: Most recent labs and imagingresults.SIGNATURE: Marie Hassan DO PATIENT NAME: Zuleika BecerrilnDATE: December 01, 2017 : 6:40 AM Normal [facility] ABO/Rh Confirmationon 2017 ABO group Nom (Bld) A Normal [facility] Comment on above: Performed By: #### A JESSIE #### [facility] [address] [place] [address] RH Type Positive Normal [facility] Comment on above: Performed By: #### A JESSIE #### [place] [address] ANES PREOPon 11-30-2017 ANES PREOP HNO ID: [id number] thor: Aaron Leblanc) EarleyService: AnesthesiologyAuthor Type: Nurse [...] of Sleep Apnea: DeniesHematocritDate Value Ref Range Vcyniw3311/30/2017 32.3 (L) 34.1 - 44.9 % Final Platelet CountDate Value Ref Range Shyvkp3011/30/2017 193 182 - 369 thou/cmm Final Vitals: 1 0 143BP: 142/75 138/81Pulse: 75 81Resp:Temp: 36.6 ?C [...] as needed. Disp: Rfl:Inpatient medications reviewed in [facility].I have interviewed and examined the patient. I have reviewed the medicalrecord , pertinent consults and/or the pre-anesthesia evaluation,pertinent labs, and test results.Significant changes in the patient's condition since the History andPhysical, not otherwise documented in primary service progress notes: [facility] contains updated information obtained within 48 hours ofSurgery/Procedure.SIGNAT URE: Hema Cuellar APRN.CRNA PATIENT NAME: Zuleika LambATE: November 30, 2017 : 12:13 PM : 1990 Normal [facility] Auto Diffon 11-30-2017 Basophils Auto #/vol (Bld) 0.1 E3/mcL Normal 0.0-0.2 [facility] Comment on above: Order Comment: Order Added by Discern Expert. Performed By: #### 2 [id number] ####KADEN BairdFelJpju1624 [place] [address] Basophils/100 WBC Auto (Bld) 0.9 % Normal 0.0-2.0 [facility] Comment on above: Order Comment: Order Added by Discern Expert. Performed By: #### 2 258136 ####KADEN BairdIxsLjcx5873 [place] [address] Eos Absolute 0.1 E3/mcL Normal 0.0-0.7 [facility] Comment on above: Order Comment: Order Added by Discern Expert. Performed By: #### 2 822304 ####KADEN BairdGbgJdhu7296 [place] [address] Eosinophils/100 leukocytes 1.0 % Normal 0.0-11.0 [facility] Comment on above: Order Comment: Order Added by Discern Expert. Performed By: #### 2 665627 ####KADEN BairdCgsOzxy[address]00 [place] [address] Lymphocytes 2.0 E3/mcL Normal 1.2-3.4 [facility] Comment on above: Order Comment: Order Added by Discern Expert. Performed By: #### 2 933121 ####KADEN BairdMfkHjjr7103 [place] [address] Lymphocytes/100 leukocytes 22.1 % Normal 20.0-55.0 [facility] Comment on above: Order Comment: Order Added by Discern Expert. Performed By: #### 2 628929 ####KADEN BairdRzgZeyj9280 [place] [address] Bryan Absolute 0.7 E3/mcL Normal 0.0-0.7 [facility] Comment on above: Order Comment: Order Added by Discern Expert. Performed By: #### 2 097621 ####KADEN BairdSwlXbvz5755 [place] [address] Monocytes/100 leukocytes 7.5 % Normal 0.0-10.0 [facility] Comment on above: Order Comment: Order Added by Discern Expert. Performed By: #### 2 061933 ####KADEN [address] [place] [address] Neutro Absolute 6.1 E3/mcL Normal 1.4-6.5 [facility] Comment on above: Order Comment: Order Added by Discern Expert. Performed By: #### 2 449749 ####KADEN BairdLxxVpgv2086 [place] [address] Neutro Auto 68.5 % Normal 37.0-75.0 [facility] Comment on above: Order Comment: Order Added by Discern Expert. Performed By: #### 2 506964 ####KADEN [address] [place] [address] CBC w/ Auto Diffon 8 Erythrocyte distribution width Auto Ratio (RBC) 14.3 % Normal 11.5-14.5 [facility] Comment on above: Performed By: #### 2 326695 ####KADEN BairdVeiPcvz0286 [place] [address] Erythrocytes (RBC) 4.34 E6/mcL Normal 3.90-5.40 [facility] Comment on above: Performed By: #### 2 486673 ####KADEN BairdLkuKuwn5779 [place] [address] Hematocrit (HCT) 35.1 % Low 36.0-48.0 [facility] Comment on above: Performed By: #### 2 644523 ####KADEN BairdIdhAkpg8962 [place] [address] Hemoglobin mass conc (Bld) 11.6 g/dL Low 12.0-16.0 [facility] Comment on above: Performed By: #### 2 836834 ####KADEN SzrVnja9629 [place] [address] MCH 26.6 pg Low 27.0-31.0 [facility] Comment on above: Performed By: #### 2 195075 ####KADEN BairdOslCcgi6174 [place] [address] MCHC mass conc (RBC) 32.9 g/dL Low 33.0-37.[address] [facility] Comment on above: Performed By: #### 2 487272 ####KADEN [address] [place] [address] MCV 80.9 fL Normal 78.0-100.0 [facility] Comment on above: Performed By: #### 2 816916 ####KADEN [address] [place] [address] Platelet mean volume (PMV) 7.6 fL Normal 7.4-11.0 [facility] Comment on above: Performed By: #### 2 457921 ####KADEN [address] [place] [address] Platelets 217 E3/mcL Normal 130-400 [facility] Comment on above: Performed By: #### 2 356109 ####KADEN [address] [place] [address] WBC (Leukocytes) 8.8 E3/mcL Normal 3.6-11.0 [facility] Comment on above: Performed By: #### 2 065725 ####KADEN [address] [place] [address] CONSULTon 11-30-2017 CONSULT HNO ID: [id number] thor: Marie Lema (Res) LendeService: ObstetricsAuthor Type: [...] T0 L0 SAB1 TAB0 Ectopic0 Multiple0 Live Nphojg8Xnvb of Baby 1: Not recorded Date: 2014 [...] pupils equal, no thyromegalyLungs: clearHeart: RR, S1, U5Braiifn: soft, nontender, no massesUterus: soft, NTExtremities: 1+ [...] Epi prn4. FB soon5. [place] [address]. anomalies- prominent cisterna magna, bilateral periventrcularnodular heterotopia, [...] EF 55%.10. H/o maternal clubfoot-s/p repair as oqcxdy80. H/o tobacco abuseSigned out to [facility] for deliveryDr. Amado reviewed with Dr. MaldonadoSIGNATURE: Marie Hassan DO PATIENT NAME: Zuleika LambATE: November 30, 2017 : 6:49 AM PAGER/CONTACT #: [phone] Normal [facility] HISTORY PHYSICALon 8 HISTORY PHYSICAL HNO ID: [id number] thor: Marie Lema (Res) JabiereService: ObstetricsAuthor Type: [...] T0 L0 SAB1 TAB0 Ectopic0 Multiple0 Live Tkpvfc9Vlxl of Baby 1: Not recorded Date: 2014 [...] pupils equal, no thyromegalyLungs: clearHeart: RR, S1, J2Bjxxfhx: soft, nontender, no massesUterus: soft, NTExtremities: 1+ edemaDTRs: 2+FHT: bpmSt Spec Exam: (not done)CERVICAL EXAM:Dilation: 1 (11/30/17 0648 : Marie Lema (Res) Lende) cmStation: -2 (11/30/17 0648 : Marie Lema (Res) Lende)Effacement: 60 (11/30/17 0648 : Marie Lema (Res) Lende) %Position:Presentation: Pelvimetry: [...] Epi prn4. FB soon5. [place] [address]. anomalies- prominent cisterna magna, bilateral periventrcularnodular heterotopia, [...] EF 55%.10. H/o maternal clubfoot-s/p repair as ovkaqm03. H/o tobacco abuseSigned out to [facility] for deliveryD/w Dr. AmadoSIGNATURE: Marie Hassan DO PATIENT NAME: Zuleika LambATE: November 30, 2017 : 6:49 AM PAGER/CONTACT #: [phone] Normal [facility] Hemogramon 11-30-2017 Erythrocyte distribution width Ratio (RBC) 13.6 % Normal 11.7-14.4 [facility] Comment on above: Performed By: #### C BC1 #### [facility] [address] [place], [place] [address] Hematocrit Volume Fraction (Bld) 32.3 % Low 34.1-44.9 [facility] Comment on above: Performed By: #### C BC1 #### [facility] [address] [place] [address] Hemoglobin mass conc (Bld) 10.4 g/dL Low 11.2-15.7 [facility] Comment on above: Performed By: #### C BC1 #### [facility] [address] [place] [address] MCH Entitic mass (RBC) 26.4 pg Normal 25.6-32.2 [facility] Comment on above: Performed By: #### C BC1 #### [facility] [address] [place] [address] MCHC mass conc (RBC) 32.2 % Normal 31.6-34.[address] [facility] Comment on above: Performed By: #### C BC1 #### [facility] [address] [place] [address] MCV Entitic volume (RBC) 82.0 fL Normal 79.4-94.8 [facility] Comment on above: Performed By: #### C BC1 #### [facility] [address] [place] [address] Platelet mean volume Entitic volume (Bld) 9.9 fL Normal 9.4-12.3 [facility] Comment on above: Performed By: #### C BC1 #### [facility] [address] [place] [address] Platelets #/vol (Bld) 193 thou/cmm Normal 182-369 [facility] Comment on above: Performed By: #### C BC1 #### [facility] [address] [place] [address] RBC #/vol (Bld) 3.94 mil/cmm Normal 3.93-5.22 [facility] Comment on above: Performed By: #### C BC1 #### [facility] [address] [place] [address] RDW SD 40.6 fl Normal 36.4-46.3 [facility] Comment on above: Performed By: #### C BC1 #### [facility] [address] [place] [address] WBC #/vol (Bld) 9.85 thou/cmm Normal 3.98-10.04 [facility] Comment on above: Performed By: #### C BC1 #### [facility] [address] [address] LD NOTEon 11-30-2017 LD NOTE HNO ID: [id number] thor: Marie Lema (Res) LendeService: ObstetricsAuthor Type: ResidentType: LANDD Delivery NoteFiled: 11/30/2017 6:19 PMNote Text: -------Attestation signed by Serenity Maldonado MD at 12/01/2017 6:04 PMI saw and evaluated the patient. I reviewed the resident's note and agree,except that patient seen by [facility] (patient has FAS, fetus with multipleanomlaies) service, consult placed to [facility] for management of labor AND delivery.Essential primip presented at 39w with PROM, had Pugh balloon AND Pitocin foraugmentaion. Late in labor noted tachycardia that improved with IVFB ANDTylenol (mother rico had elevated temp but felt warm). [facility] [place] [facility] to [facility] N[facility] team for evaluation (was allowed tohave delivery to abdomen AND 30 sec delay for cord clamping). Pushed well AND hadSVD of a viable female infant (APGARS 8,9, weight of 3200g/7#1oz) over intactperineum. Uterus slightly boggy after delivery, responded to massage AND Pitocininfusion, EBL ~500cc.Serenity Maldonado MD ----OBSTETRICSDELIVERY SUMMARY - VAGINAL DELIVERYGestational Age at Delivery: 27h8cBhjexcv Date: 11/30/2017Service Time: 1800Keegan, Bg Zuleika Dillard [[id number]]Labor EventsRupture Date: 11/30/17Rupture Time: 224Rupture Type: PROMFluid [...] 11/30/2017 5:55 PMRemoval: SpontaneousAppearance: IntactAnesthesia:Method: EpiduralMeasurements, Apgars:Code [place] Called: YesType of Code [place] Team Needed: PlannedA digital sweep of the [...] Marie Hassan DO PATIENT NAME: Zuleika Dillard JonenDATE: November 30, 2017 : 6:15 PM Normal [facility] NURSING PROGon 11-30-2017 NURSING PROG HNO ID: [id number] thor: Marguerite (Rn) ANEUDY Albarranervice: (none)Author Type: Registered NurseType: Nursing Progress NoteFiled: 11/30/2017 7:06 PMNote Text: INTRODUCED SELF TO PATIENT AND SUPPORT PERSONS. PLAN OF CARE DISCUSSED.ASSESSMENT PERFORMED. PATIENT DENIES COMPLAINTS. Normal [facility] NURSING PROG HNO ID: [id number] thor: Darcie (Rn) ANEUDY Landeroservice: NursingAuthor Type: Registered NurseType: Nursing Progress NoteFiled: 11/30/2017 10:03 AMNote Text:Patient up to shower for comfort. Boyfriend at side. On telemetrymonitors. RN remains in room. FHR difficult to maintain continuoustracing Normal [facility] NURSING PROG HNO ID: [id number] Author: Norah (Rn) KARRI Eastman Service: Nursing Author Type: Registered Nurse Type: Nursing Progress Note Filed: 11/30/2017 7:18 AM Note Text: Report given to Darcie DURAN and care transferred at this time. Normal [facility] PROCEDUREon 11-30-2017 PROCEDURE HNO ID: [id number] thor: Aaron (Sleeve Machine Tender) EarleyService: AnesthesiologyAuthor Type: Nurse AnesthetistType: ProceduresFiled: 11/30/2017 [...] Catheter in Epidural Space: 5 cmInterspace: approximately L2-P1Uaeffh of Attempts: 1Wet Tap Complication: NoDural Puncture [...] nurses' documentation for additional vitals.SIGNATURE: Hema Cuellar APRN.GOLD NIB GRINDER PATIENT NAME: Zuleika LambATE: November 30, 2017 : 12:27 PM PAGER/CONTACT #: [facility] PROGRESSon 11-30-2017 PROGRESS HNO ID: [id number] thor: Marie Lema (Res) JabiereService: ObstetricsAuthor Type: ResidentType: Progress NotesFiled: 11/30/2017 5:04 PMNote Text:UpdatePatient is pushing in the OR. Cat I FHRT with baseline around 160s. updated and in house.Franki Neri 2017 5:04 PM [facility] PROGRESS HNO ID: [id number] Author: Darcie (Rn) KARRI Landeros Service: Nursing Author Type: Registered Nurse Type: Progress Notes Filed: 11/30/2017 3:29 PM Note Text: Patient feeling pressure, cervical exam 9.5 cm. NICU notified. Patient feels warm, but temp 36.9. [facility] PROGRESS HNO ID: [id number] thor: Marie Lema (Res) Tristanrvice: ObstetricsAuthor Type: ResidentType: Progress NotesFiled: 11/30/2017 1:39 PMNote Text:OBSTETRICSINTRAPARTUM PROGRESS NOTESERVICE DATE: November 30, 2017SERVICE TIME: 1:35 PMSubjectivePatient with no complaints.ObjectiveLAST VITALS:Pulse BP Resp O2 Sat Temp Pain 78 122/63 18 100 % 36.7 ?C (98.1 ?F) 10PHYSICAL EXAM:CERVICAL EXAM:Last Exam Notes: Dilation: 5 (11/30/17 1309 : Yolanda (Res) Barbosa)Effacement (%): 80 (11/30/17 1309 : Yolanda (Res) Barbosa)Station: -2 (11/30/17 1309 : Yolanda (Joaquín) Romina)Presentation: (not recorded)MEMBRANES:Status: Membrane Status: Premature (11/30/17 0853 : Darcie (Rn) Tigre,RN)Rupture Date: 11/30/17 (11/30/17 0853 : Darcie (Rn) [...] pt comfortable4. s/p [place]5. [place] [address]. anomalies- prominent cisterna magna, bilateral periventrcularnodular heterotopia, [...] EF 55%.10. H/o maternal clubfoot-s/p repair as qkbxel71. H/o tobacco abuse12. Cat II- Isolate late decelerations. Moderate variability. Continuingto make cervical change. Not on Cat II protocol.SIGNATURE: Marie Hassan DO PATIENT NAME: Zuleika LambATE: November 30, 2017 : 1:35 PM PAGER/CONTACT #: [phone] Normal [facility] PROGRESS HNO ID: [id number] thor: Yolanda (Joaquín) SnyderService: ObstetricsAuthor Type: ResidentType: Progress NotesFiled: 11/30/2017 [...] pt comfortable4. s/[place] [address]. anomalies- prominent cisterna magna, bilateral periventrcularnodular heterotopia, [...] EF 55%.10. H/o maternal clubfoot-s/p repair as uvbtrm71. H/o tobacco abuseSIGNATURE: Yolanda Barbosa DO PATIENT NAME: Zuleika LambATE: November 30, 2017 : 1:11 PM PAGER/CONTACT #: [phone] [facility] PROGRESS HNO ID: [id number] thor: Yolanda (Joaquín) GabrielaerService: ObstetricsAuthor Type: ResidentType: Progress NotesFiled: 11/30/2017 11:07 [...] 0853 : Darcie (Karri) Tigre RN)Rupture Time: 022 (11/30/17 0853 : Darcie (Rn) Tigre, RN)Amniotic Fluid Color: Clear (11/30/17 0853 : Darcie (Rn) Tigre, RN)Additional Findings: NoneFETAL MONITORINGFHT: 145/mod/+accels/neg decelsToco: 2-4 minutesCategory: ILABSDiagnostic tests reviewed for today's visit: No new labsAssessment/Plan27 year old EGA:39w0d. Admitted for augmentation of labor forPROM?1. GBS-2. Pit per protocol3[place] [address]. [place] [address]. anomalies- prominent cisterna magna, bilateral periventrcularnodular heterotopia, [...] EF 55%.10. H/o maternal clubfoot-s/p repair as womqxp92. H/o tobacco abuseSIGNATURE: Yolanda Barbosa DO PATIENT NAME: Zuleika BecerrilnDATE: November 30, 2017 : 11:05 AM PAGER/CONTACT #: [phone] [facility] PROGRESS HNO ID: [id number] Author: Darcie (Rn) KARRI Landeros Service: Nursing Author Type: Registered Nurse Type: Progress Notes Filed: 11/30/2017 10:35 AM Note Text: Unable to find labwork for chart. [facility] PROGRESS HNO ID: [id number] thor: Marie Lema (Res) JabiereService: ObstetricsAuthor Type: ResidentType: Progress NotesFiled: 11/30/2017 10:33 AMNote Text:OBSTETRICSINTRAPARTUM PROGRESS NOTESERVICE DATE: November 30, 2017SERVICE TIME: 10:31 AMSubjectivePatient with no complaints.ObjectiveLAST VITALS:Pulse BP Resp O2 Sat Temp Pain 75 142/75 18 100 % 36.6 ?C (97.9 ?F) 01/24PHYSICAL EXAM:CERVICAL EXAM:Last Exam Notes: Dilation: 1 (11/30/17 0648 : Marie Lema (Res) Sonya)Effacement (%): 60 (11/30/1748 : Marie Lema (Res) Sonya)Station: -2 (11/30/1748 : Marie Lema (Res) Sonya)Presentation: (not recorded)MEMBRANES:Status: Membrane Status: Premature (11/30/17 0853 : Darcie Washington) TigreRN)Rupture Date: 11/30/17 (11/30/17 0853 : Darcie Washington) Tigre RN)Rupture Time: 022 (11/30/17 0853 : Darcie [place]) Tigre RN)Amniotic Fluid Color: Clear (11/30/17 0853 : Darcie [place]) Tigre RN)Additional Findings: NoneFETAL MONITORINGFHT: 135s Moderate/acelerations present/decelerations absentToco: 2-4 minutesCategory: ILABSDiagnostic tests reviewed for today's visit: Most recent labs and imagingresults.Assessment/ Plan27 year old EGA:39w0d. Admitted for augmentation for PROM1. GBS-2. Pit per protocol3. [place] [address]. [place] [address]. anomalies- prominent cisterna magna, bilateral periventrcularnodular heterotopia, [...] EF 55%.10. H/o maternal clubfoot-s/p repair as ldyemu96. H/o tobacco abuse?SIGNATURE: Marie Hassan DO PATIENT NAME: Zuleika LambATE: November 30, 2017 : 10:31 AM PAGER/CONTACT #: [phone] [facility] PROGRESS HNO ID: [id number] thor: Darcie Washington) ANEUDY Landeroservice: NursingAuthor Type: Registered NurseType: Progress NotesFiled: 11/30/2017 10:13 AMNote Text:Patient remains in shower. RN and boyfriend at side. EFM on telemetryand adjusted while patient in shower. Difficult to keep baby on. Normal [facility] PROGRESS HNO ID: [id number] thor: Yolanda (Res) SnyderService: ObstetricsAuthor Type: ResidentType: Progress NotesFiled: 11/30/2017 7:35 AMNote Text:In to place FB. Pt tolerated procedure well. Continues to leak clearfluid. Pt uncomfortable with contractions.Cat I FHT, reactive with accelsToco: 2-5 minsHeather Romina, PGY-1Obstetrics and GynecologyPager [phone]/7:34 AM Normal [facility] Type and Screenon 11-30-2017 ABO group Nom (Bld) A Normal [facility] Comment on above: Performed By: #### T &S #### [address] [place] [address] Comment See Below [facility] Comment on above: Result Comment: Scre en &/or Xmatch expires in 3 days at 12 midnight. Redraw patient at that time. Performed By: #### T &S #### [address] [place] [address] RH Type Positive Normal [facility] Comment on above: Performed By: #### T &S #### [address] [place] [address] Progress Noteon 11-28-2017 Head Animal Keeper Authentication Interface Message Text Routine VisitSubjective: Zuleika Villalta is being seen today for her obstetrical visit. She is at 73w2xpixtmmtfo. Patient reports no complaints. Movement: normal. She [...] Community HospitalInduction at 39 weeks; CYTOTEC IOL 18 at 5 pm at [facility]. Pre-Procedure formdone (CG)GBS culture: neg 11/07/17Contraception: [...] IVC/SVC S/P [facility] POC reviewedShe would like her follow up and contraception with Dr. Ivan.The total patient time of the visit was 15 minutes, of which greater than 50% ofthe time was spent counseling and coordinating care. Normal [facility] Progress Noteon 11-22-2017 Head Animal Keeper Authentication Interface Message Text [facility] plan of care faxed to [facility] in event pt would arrive for urgent management. Normal [facility] Progress Noteon 11-21-2017 Head Animal Keeper Authentication Interface Message Text Routine VisitSubjective: Zuleika Villalta is being seen today for her obstetrical visit. She is at 17m8icrhvpoxxn. Patient reports that she went to [facility] last night due toconcerns for labor. She [...] CYTOTEC IOL 618-18 at 5 pm at [facility]. Pre-Procedure formdone (CG)GBS culture: neg 11/07/17Contraception: [...] scheduled for IOL on12/02/17.Oksana amado MD Normal [facility] Progress Noteon 11-12-2017 Head Animal Keeper Authentication Interface Message Text Call from [facility] that pt presented there in labor. [facility] plan of care and ACOGs faxed by Toan Chen. Provided after hours MFM number provided. Normal [facility] Group B Strep Cultureon 10-16 Group B Strep Culture Group B Strep Cult ure: No Group B Streptococci isolated. Source: VAG Collected: 11/07/17 09:00 Site: Vaginal/Rectal Received : 11/07/17 22:01Group B Strep Culture FINAL 11/10/17 08:34 No Group B Streptococci isolated. Normal [facility] Comment on above: Performed By: #### G [facility] ####[address] [place], [place] [phone] Progress Noteon 11-07-2017 Head Animal Keeper Authentication Interface Message Text Routine VisitSubjective: Zuleika Villalta is being seen today for her obstetrical visit. She is at 76q2dvrpgfrgyp. Patient reports occasional nausea. No emesis. She [...] OB visit and BPP.Oksana Amado MD Normal [facility] Progress Noteon 10-24-2017 Head Animal Keeper Authentication Interface Message Text Routine VisitSubjective: Zuleika [...] was spent counseling and coordinating care.Marco Antonio Antonio DO Normal [facility] Progress Noteon 10-15-2017 Head Animal Keeper Authentication Interface Message Text Ped selection made. Updated prenatals Normal [facility] Progress Noteon 10-08-2017 Head Animal Keeper Authentication Interface Message Text Thank you for [...] size. There was a patent foramen ovale, cuteawiik-yb-vmcq shunt.Tricuspid valve:Normal tricuspid valve. There was normal [...] fetuses and in fetuses with CHD and [id number], the ratio being below 0.3 )Impression and recommendations.1) Abnormal 3-vessel view, ascending aorta was moderately dilated. 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 thymic thoracic ratio (TT-ratio)=0.1 ( TT-ratio 0.44 in normal fetuses and in fetuses with CHD and zyeavpbgzliin70q75, the ratio being below 0.3 )5) Normal [...] treatments, follow up fetalechocardiograms and follow ups.10) [place] Echocardiogram prior to the discharge from the nursery or earlier ifcardiac condition/status changes in any way. follow up and treatmentshould be determined on the basis of the findings on the initial echocardiogram.Counseling and/or coordination of care was greater than 35 minutes which is morethan 50% of the total time of 60 minutes spent on the encounter. Normal [facility] Head Animal Keeper Authentication Interface Message Text Initial VisitSubjective: Zuleika [...] weeks for OB visit and BPP in [place].Oksana Amado MD Normal [facility] Cytogenomic Microarray Nivia sis of Bloodon 09-10-2017 Cytogenomic Microarray Analysis of Blood SEE BELOW Normal [facility] Comment on above: Result Comment: SPEC IMEN: BLOODCLINICAL INFORMATION: Learning disability[F81.9]TEST: CYTOGENOMIC MICROARRAY ANALYSISRESULT SUMMARY:Normal femaleNOMENCLATURE:arr(1-22,X)s2XGTIEXLMHPXIZQ & COMMENTS:The cytogenomics microarray analysis indicated no [...] whole genome microarray analysis was performed the FDA-cleared[employer](RKidStart Dx platform, which contains approximately 2.7million markers, including 1,953,246 unique non-polymorphic copy numberprobes and 743,304 single nucleotide polymorphism (SNP) probes. Thegenome-wide functional resolution of this assay is approximately 25 kbfor deletions and 50 kb for duplications. This microarray andassociated software (Chromosome Analysis Suite Dx) were manufactured [employer] and used by the Cytogenetics and Molecular DiagnosticsLaboratories of [facility] for the purpose ofidentifying DNA copy [...] further information regarding intendeduse and limitations, see [email or web address].Note: The Cytogenetics Laboratory has this patient's blood [...] for additional testing. 09/19/2017 BIGG GARCIA, PH.D., [facility], [facility] 09/19/2017 Performed By: #### M CRY1 ####[facility] [place], [place] [phone] MRI (SINGLE)on 018 MRI (SINGLE) MRI (SINGLE)CL [...] Dr. AJ CAMILO at 09/10/2017 10:[address] [facility] Progress Noteon 09-10-2017 Head Animal Keeper Authentication Interface Message Text The total patient time of the visit was 15 minutes, of which greater than 50% of the time was spent counseling and coordinating care. Normal [facility] Auto Diffon 09-03-2017 Basophils Auto #/vol (Bld) 0.1 E3/mcL Normal 0.0-0.2 [facility] Comment on above: Order Comment: Order Added by Discern Expert. Performed By: #### 2 [id number] ####KADEN [address] [place] [address] Basophils/100 WBC Auto (Bld) 0.5 % Normal 0.0-2.0 [facility] Comment on above: Order Comment: Order Added by Discern Expert. Performed By: #### 2 [id number] ####KADEN [address] [place] [address] Eos Absolute 0.0 E3/mcL Normal 0.0-0.7 [facility] Comment on above: Order Comment: Order Added by Discern Expert. Performed By: #### 2 [id number] ####KADEN [address] [place] [address] Eosinophils/100 leukocytes 0.4 % Normal 0.0-11.0 [facility] Comment on above: Order Comment: Order Added by Discern Expert. Performed By: #### 2 [id number] ####KADEN [address] [place] [address] Lymphocytes 1.3 E3/mcL Normal 1.2-3.4 [facility] Comment on above: Order Comment: Order Added by Discern Expert. Performed By: #### 2 [id number] ####K[address] [place] [address] Lymphocytes/100 leukocytes 13.1 % Low 20.0-55.0 [facility] Comment on above: Order Comment: Order Added by Discern Expert. Performed By: #### 2 374602 ####KADEN [address] [place] [address] Bryan Absolute 0.4 E3/mcL Normal 0.0-0.7 [facility] Comment on above: Order Comment: Order Added by Discern Expert. Performed By: #### 2 [id number] ####KADEN [address] [place] [address] Monocytes/100 leukocytes 4.3 % Normal 0.0-10.0 [facility] Comment on above: Order Comment: Order Added by Discern Expert. Performed By: #### 2 809011 ####KADEN [address] [place] [address] Neutro Absolute 8.4 E3/mcL High 1.4-6.5 [facility] Comment on above: Order Comment: Order Added by Discern Expert. Performed By: #### 2 440442 ####KADEN [address] [place] [address] Neutro Auto 81.7 % High 37.0-75.0 [facility] Comment on above: Order Comment: Order Added by Discern Expert. Performed By: #### 2 [id number] ####KADEN [address] [place] [id number] CBC w/ Auto Diffon 8 Erythrocyte distribution width Auto Ratio (RBC) 13.1 % Normal 11.5-14.5 [facility] Comment on above: Performed By: #### 2 193869 ####KADEN [address] [place] [id number] Erythrocytes (RBC) 3.90 E6/mcL Normal 3.90-5.40 [facility] Comment on above: Performed By: #### 2 [id number] ####KADEN [address] [place] [id number] Hematocrit (HCT) 34.7 % Low 36.0-48.0 [facility] Comment on above: Performed By: #### 2 808786 ####KADEN [address] [place] [address] Hemoglobin mass conc (Bld) 11.8 g/dL Low 12.0-16.0 [facility] Comment on above: Performed By: #### 2 686424 ####KADEN [address] [place] [address] MCH 30.3 pg Normal 27.0-31.0 [facility] Comment on above: Performed By: #### 2 884405 ####KADEN [address] [place] [id number] MCHC mass conc (RBC) 34.2 g/dL Normal 33.0-37.[address] [facility] Comment on above: Performed By: #### 2 655604 ####KADEN [address] [place] [id number] MCV 88.8 fL Normal 78.0-100.0 [facility] Comment on above: Performed By: #### 2 116530 ####KADEN [address] [place] [id number] Platelet mean volume (PMV) 7.3 fL Low 7.4-11.0 [facility] Comment on above: Performed By: #### 2 925572 ####KADEN [address] [place] [address] Platelets 218 E3/mcL Normal 130-400 [facility] Comment on above: Performed By: #### 2 [id number] ####KADEN [address] [place] [address] WBC (Leukocytes) 10.2 E3/mcL Normal 3.6-11.0 [facility] Comment on above: Performed By: #### 2 195492 ####KADEN [address] [place] [address] Gest Scr Glu 1 Hron 09-04-19 18 Glucose mass conc 113 mg/dL Normal 70-140 [facility] Comment on above: Performed By: #### 2 [id number] ####KADEN [address] [place] [address] FISH Probeon 08-13-2017 Protein mass conc SEE BELOW Normal [facility] Comment on above: Result Comment: SPEC IMEN: BLOOD - [id number] INFORMATION:TEST: FISH Analysis of the DiGeorge/VCFS Region [...] Metaphase images: 2The Vysis LSI DARREN Spectrum Rankin Probe contains the DARREN gene (3'non-coding region of TUPLE1, C61Z900, and S91A1622. The Vysis LSI ARSAspectrum Green Probe includes [...] performance characteristics determinedby the Cytogenetics Laboratory of [facility]. It hasnot been cleared or approved [...] J Med Barbara 66:250-256,1995. BIGG GARCIA, PH.D., [facility] 08/16/2017 Performed By: #### F [facility] ####[address] [phone] Progress Noteon 08-13-2017 Head Animal Keeper Authentication Interface Message Text Met with patient [...] understanding of findingsWork History: unemployed. Information on FTC services given.Consent to share information with FTC team, OB and e commerce project manager signed. Pt plans to deliver in [place] with [facility]. Currently with Dr. Shekhar Dyson.Window Cleaner is undecided. [facility] provided and discussed importance ofselection prior to delivery. Female fetus- name is ViviannaMethod of feeding: breast. Breast feeding booklet givenUltrasound [...] was spent counseling and coordinating care. Normal [facility] Head Animal Keeper Authentication Interface Message Text Thank you for [...] size. There was a patent foramen ovale, ubedtzmkx-lf-dsph shunt.Tricuspid valve:Normal tricuspid valve. There was normal [...] 60 minutes spent on the encounter. Normal [facility] Progress Noteon 07-18-2017 Head Animal Keeper Authentication Interface Message Text [facility]- MEDICINE CONSULTReferring/Requestin g Provider: VINI [...] no palpitations. 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 Will have genetic consult with [facility] evaluation. cardiac anomaly complicating , antepartum 07/18/2017 Dilated aortic root seen on ultrasound along with large umbilical cordvarix, dolichocephaly DW Dr. Zazueta, verbal order to refer to [facility] Will be scheduled with pediatric cardiology. Also, patient and family members have a history of learning disabilities,including an individual learning plan in school. She will talk to her familymembers and bring as much information as is available for her genetics consult.She has transportation to [place] and [facility]The total patient time of the visit was 30 minutes, of which was greater than50% of the time was spent counseling and coordinating care. Normal [facility] IGP W/hpv Rfx [id number] 05-07 Diagnosis: See Ref Lab Report Normal [facility] Comment on above: Order Comment: Thin Prep. Performed By: #### 2 [id number] ####KADEN [address] [place] [address] C Urineon 05-03-2017 C Urine Final Report: Normal skin alonso isolated Normal [facility] Comment on above: Performed By: #### 2 [id number] ####KADEN [address] [place] [address] RPRon 05-03-2017 RPR Ql Non-Reactive Normal Non-Reacti ve [facility] Comment on above: Performed By: #### 2 908217 ####KADEN [address] [place] [address] Hep Bs Agon 05-02-2017 BSA (Body Surface Area) Negative Normal Negative [facility] Comment on above: Result Comment: Perf ormed At: CB [facility] Zaxdfx55[address] [place], [place] [id number] Vincent PhD Ph:[phone] Performed By: #### 2 [id number] ####KADEN BairdXnmRzsp4695 [place] [address] ABO/Rh Echoon 05-01-2017 ABO/Rh E Interp... Positive Normal [facility] Comment on above: Performed By: #### 2 [id number] ####KADEN ZbwRhvw7357 [place] [address] Antibody Screen Cap...on Screen Interp... Negative Normal [facility] Comment on above: Performed By: #### 2 559553 ####KADEN TfsTnyd2764 [place] [address] Auto Diffon 05-01-2017 Basophils Auto #/vol (Bld) 0.0 E3/mcL Normal 0.0-0.2 [facility] Comment on above: Order Comment: Order Added by Discern Expert. Performed By: #### 2 777512 ####KADEN Urinalysis Manual [address] [place] [address] 23[address] Basophils/100 WBC Auto (Bld) 0.4 % Normal 0.0-2.0 [facility] Comment on above: Order Comment: Order Added by Discern Expert. Performed By: #### 2 328609 ####KADEN Urinalysis Manual Donnblpioo[address] [place] [address] Eos Absolute 0.1 E3/mcL Normal 0.0-0.7 [facility] Comment on above: Order Comment: Order Added by Discern Expert. Performed By: #### 2 702312 ####KADEN Urinalysis Manual [address]ql[address] [place] [address] 25361 Eosinophils/100 leukocytes 0.7 % Normal 0.0-11.0 [facility] Comment on above: Order Comment: Order Added by Discern Expert. Performed By: #### 2 300839 ####KADEN Urinalysis Manual G[address]pbfqzdx[address] [place] [address] Lymphocytes 1.8 E3/mcL Normal 1.2-3.4 [facility] Comment on above: Order Comment: Order Added by Discern Expert. Performed By: #### 2 110388 ####KADEN Urinalysis Manual Xobzulgonv[address] [place] [address] Lymphocytes/100 leukocytes 17.1 % Low 20.0-55.0 [facility] Comment on above: Order Comment: Order Added by Discern Expert. Performed By: #### 2 475071 ####KADEN Urinalysis Manual Nhvkmgvrwi[address] [place] [address] Bryan Absolute 0.5 E3/mcL Normal 0.0-0.7 [facility] Comment on above: Order Comment: Order Added by Discern Expert. Performed By: #### 2 733504 ####KADEN Urinalysis Manual Xwematuacf[address] [place] [address] Monocytes/100 leukocytes 5.0 % Normal 0.0-10.0 [facility] Comment on above: Order Comment: Order Added by Discern Expert. Performed By: #### 2 769235 ####KADEN Urinalysis Manual Fucwzcldyx[address] [place] [address] Neutro Absolute 8.0 E3/mcL High 1.4-6.5 [facility] Comment on above: Order Comment: Order Added by Discern Expert. Performed By: #### 2 418948 ####KADEN Urinalysis Manual Zfssngmfih[address] [place] [address] Neutro Auto 76.8 % High 37.0-75.0 [facility] Comment on above: Order Comment: Order Added by Discern Expert. Performed By: #### 2 933801 ####KADEN Urinalysis Manual Sgtzfunwoo6615[address] [place] [address] CBC w/ Auto Diffon 7 Erythrocyte distribution width Auto Ratio (RBC) 15.2 % High 11.5-14.5 [facility] Comment on above: Performed By: #### 2 270299 ####KADEN Urinalysis Manual Eaoszneuxf2239[address] [place] [address] Erythrocytes (RBC) 4.90 E6/mcL Normal 3.90-5.40 [facility] Comment on above: Performed By: #### 2 291410 ####KADEN Urinalysis Manual Gakpndsqua[address] [place] [address] Hematocrit (HCT) 41.1 % Normal 36.0-48.0 [facility] Comment on above: Performed By: #### 2 810278 ####KADEN Urinalysis Manual Frkxpfdicd926[address] [place] [address] Hemoglobin mass conc (Bld) 13.5 g/dL Normal 12.0-16.0 [facility] Comment on above: Performed By: #### 2 207185 ####KADEN Urinalysis Manual Wiuahrjacr7817[address] [place] [address] MCH 27.5 pg Normal 27.0-31.0 [facility] Comment on above: Performed By: #### 2 779584 ####KADEN Urinalysis Manual Xuxjwwnbxp5334[address] [place] [address] MCHC mass conc (RBC) 32.8 g/dL Low 33.0-37.[address] [facility] Comment on above: Performed By: #### 2 545554 ####KADEN Urinalysis Manual Hpdnxztvre5235[address] [place] [address] MCV 83.9 fL Normal 78.0-100.0 [facility] Comment on above: Performed By: #### 2 141921 ####KADEN Urinalysis Manual Qorjmyxvty3150[address] [place] [address] Platelet mean volume (PMV) 8.0 fL Normal 7.4-11.0 [facility] Comment on above: Performed By: #### 2 236440 ####KADEN Urinalysis Manual Wsxnevbkop[address] [place] [address] Platelets 246 E3/mcL Normal 130-400 [facility] Comment on above: Performed By: #### 2 803836 ####KADEN Urinalysis Manual Zwzufoohsb[address] [place] [address] WBC (Leukocytes) 10.4 E3/mcL Normal 3.6-11.0 [facility] Comment on above: Performed By: #### 2 136327 ####KADEN Urinalysis Manual Orxiaoaaci2566[address] [place] [address] Chlamydia GC by PCRon 2016 Chlamydia by PCR. Not Detected Normal Not Detected [facility] Comment on above: Result Comment: Xper t CT/NG Assay performance has not been evaluated in patients less than 14 years of age. Performed By: #### 2 172050 ####KADEN SgvUqnn8197 [place] [id number] Gonorrhoeae by PCR Not Detected Normal Not Detected [facility] Comment on above: Result Comment: Xper t CT/NG Assay performance has not been evaluated in patients less than 14 years of age. Performed By: #### 2 268599 ####KADEN CstXldq3842 [place] [id number] HIV-1/2 Ag/Abon 05-01-2017 HIV-1/2 Ag/Ab Non-Reactive Normal Non-Reacti ve [facility] Comment on above: Performed By: #### 2 225185 ####KADEN Urinalysis Manual Adhikttlbx[address] [place] [address] 00159 Rubella IgG Lvlon 05-01-2017 Rubella IgG Lvl 50.8 (POS) Normal [facility] Comment on above: Result Comment: <10I U/ml NON REACTIVE: NOT [id number] IU/ml RUBELLA SPECIFIC AB PRESENT, EVALUATEFURTHER TO DETERMINE IMMUNE STATUS >15 IU/ml REACTIVE, IMMUNE Performed By: #### 2 238143 ####KADEN NfwCejw8020 [place] [address] Auto Diffon 04-22-2017 Basophils Auto #/vol (Bld) 0.1 E3/mcL Normal 0.0-0.2 [facility] Comment on above: Order Comment: Order Added by Discern Expert. Performed By: #### 2 269092 ####KADEN Urinalysis Manual Zzfjufuwpr0429[address] [place] [address] Basophils/100 WBC Auto (Bld) 0.6 % Normal 0.0-2.0 [facility] Comment on above: Order Comment: Order Added by Discern Expert. Performed By: #### 2 578109 ####KADEN Urinalysis Manual [address] [address] Eos Absolute 0.0 E3/mcL Normal 0.0-0.7 [facility] Comment on above: Order Comment: Order Added by Discern Expert. Performed By: #### 2 177764 ####KADEN Urinalysis Manual Xirtqzfptc[address] [place] [address] 87[address] Eosinophils/100 leukocytes 0.2 % Normal 0.0-11.0 [facility] Comment on above: Order Comment: Order Added by Discern Expert. Performed By: #### 2 505966 ####KADEN Urinalysis Manual Cbfzbrzfeu[address] [place] [address] 21244 Lymphocytes 1.5 E3/mcL Normal 1.2-3.4 [facility] Comment on above: Order Comment: Order Added by Discern Expert. Performed By: #### 2 778206 ####KADEN Urinalysis Manual Drxupndrkw[address] [place] [address] 89160 Lymphocytes/100 leukocytes 10.8 % Low 20.0-55.0 [facility] Comment on above: Order Comment: Order Added by Discern Expert. Performed By: #### 2 737696 ####KADEN Urinalysis Manual Hcmdmhfbjn3259[address] [place] [address] Bryan Absolute 0.6 E3/mcL Normal 0.0-0.7 [facility] Comment on above: Order Comment: Order Added by Discern Expert. Performed By: #### 2 159918 ####KADEN Urinalysis Manual Ycibiziqnn3916[address] [place] [address] Monocytes/100 leukocytes 4.4 % Normal 0.0-10.0 [facility] Comment on above: Order Comment: Order Added by Discern Expert. Performed By: #### 2 407898 ####KADEN Urinalysis Manual Mgppldilow718[address] [place] [address] Neutro Absolute 11.3 E3/mcL High 1.4-6.5 [facility] Comment on above: Order Comment: Order Added by Discern Expert. Performed By: #### 2 481034 ####KADEN Urinalysis Manual Vmedluqwxb0497[address] [place] [address] Neutro Auto 84.0 % High 37.0-75.0 [facility] Comment on above: Order Comment: Order Added by Discern Expert. Performed By: #### 2 366486 ####KADEN Urinalysis Manual Hbndvigqiu1220[address] [place] [address] BMPon 04-22-2017 BUN/Creatinine Ratio Unable to calc Normal 5.4-30.0 [facility] Comment on above: Performed By: #### 2 820737 ####KADEN Urinalysis Manual Cxwccyryro7517[address] [place] [address] Creatinine mg/dL Low 0.6-1.3 [facility] Comment on above: Performed By: #### 2 328123 ####KADEN Urinalysis Manual Rtgdmbvqvn03[address] [place] [address] Urea nitrogen 7 mg/dL Normal 7-18 [facility] Comment on above: Performed By: #### 2 147066 ####KADEN Urinalysis Manual Kl[address]frede9723 [place] [address] Calcium 9.6 mg/dL Normal 8.4-10.2 [facility] Comment on above: Performed By: #### 2 466108 ####KADEN Urinalysis Manual Wplkmzryun3145 [place] [address] Chloride 103 mmol/L Normal 98-107 [facility] Comment on above: Performed By: #### 2 758478 ####KADEN Urinalysis Manual Lmfxmyjctt5[address] [place] [address] CO2 21.7 mmol/L Low 24.0-30.0 [facility] Comment on above: Performed By: #### 2 733663 ####KADEN Urinalysis Manual Bqeobjmxcg[address] [place] [address] Glucose mass conc 89 mg/dL Normal 70-99 [facility] Comment on above: Performed By: #### 2 821983 ####KADEN Urinalysis Manual Jhqolfseyq[address] [place] [address] Potassium molar conc 3.6 mmol/L Normal 3.5-5.[address] [facility] Comment on above: Performed By: #### 2 566979 ####KADEN Urinalysis Manual Etjziyrljk9936[address] [place] [address] Sodium 136 mmol/L Normal 136-145 [facility] Comment on above: Performed By: #### 2 645883 ####KADEN Urinalysis Manual Fgojmiwezj8422[address] [place] [address] CBC w/ Auto Diffon 7 Erythrocyte distribution width Auto Ratio (RBC) 14.8 % High 11.5-14.5 [facility] Comment on above: Performed By: #### 2 574903 ####KADEN Urinalysis Manual Jllmlovhun2448[address] [place] [address] Erythrocytes (RBC) 4.96 E6/mcL Normal 3.90-5.40 [facility] Comment on above: Performed By: #### 2 213188 ####KADEN Urinalysis Manual Qybcornphs4804 [place] [address] Hematocrit (HCT) 40.9 % Normal 36.0-48.0 [facility] Comment on above: Performed By: #### 2 518874 ####KADEN Urinalysis Manual Wzejjamlve727[address] [place] [address] Hemoglobin mass conc (Bld) 13.5 g/dL Normal 12.0-16.0 [facility] Comment on above: Performed By: #### 2 002501 ####KADEN Urinalysis Manual Kectsyaqtu4214[address] [place] [address] MCH 27.2 pg Normal 27.0-31.0 [facility] Comment on above: Performed By: #### 2 530942 ####KADEN Urinalysis Manual Rgqrbidenn3546[address] [place] [address] MCHC mass conc (RBC) 33.0 g/dL Normal 33.0-37.[address] [facility] Comment on above: Performed By: #### 2 791495 ####KADEN Urinalysis Manual Qprombewxb5014[address] [place] [address] MCV 82.4 fL Normal 78.0-100.0 [facility] Comment on above: Performed By: #### 2 268134 ####KADEN Urinalysis Manual Hnksbdcepr0747[address] [place] [address] Platelet mean volume (PMV) 8.0 fL Normal 7.4-11.0 [facility] Comment on above: Performed By: #### 2 713009 ####KADEN Urinalysis Manual Zwhaqedjip7227[address] [place] [address] Platelets 237 E3/mcL Normal 130-400 [facility] Comment on above: Performed By: #### 2 581736 ####KADEN Urinalysis Manual Qieprjjdyh9337[address] [place] [address] WBC (Leukocytes) 13.5 E3/mcL High 3.6-11.0 [facility] Comment on above: Performed By: #### 2 792916 ####KADEN Urinalysis Manual Tbuctdwtkw4718[address] [place] [address] UA Completeon 04-22-2017 UA Blood Negative Normal Negative [facility] Comment on above: Performed By: #### 2 254907 ####KADEN Urinalysis Manual Skjlkrmkct7914 [place] [address] UA Ascorbic Acid 40 mg/dL High <=19 [facility] Comment on above: Performed By: #### 2 971101 ####KADEN Urinalysis Manual Lkooxjtuaa5250[address] [place] [address] UA Bacteria 3+ /HPF Abnormal None [facility] Comment on above: Performed By: #### 2 537819 ####KADEN Urinalysis Manual Xmzpkfitur1160[address] [place] [address] UA Clarity SltCloudy Abnormal Clear [facility] Comment on above: Performed By: #### 2 781044 ####KADEN Urinalysis Manual Ntdxucdjvb867[address] [place] [address] UA Leuk Est Negative Normal Negative [facility] Comment on above: Performed By: #### 2 253603 ####KADEN Urinalysis Manual Qjfviqgvrr[address] [place] [address] UA Mucous Few Abnormal Trace [facility] Comment on above: Performed By: #### 2 225958 ####KADEN Urinalysis Manual Xjrlztdxwr7428[address] [place] [address] UA Nitrite Negative Normal Negative [facility] Comment on above: Performed By: #### 2 913969 ####KADEN Urinalysis Manual Rnxhtrtwmd3529[address] [place] [address] UA pH 8.0 Normal 4.6-8.0 [facility] Comment on above: Performed By: #### 2 840532 ####KADEN Urinalysis Manual Xqhvwvkoch6414[address] [place] [address] UA Protein Negative Normal Negative [facility] Comment on above: Performed By: #### 2 380064 ####KADEN Urinalysis Manual Zklxaymsls[address] [place] [address] UA Spec Grav 1.012 Normal 1.003-1.03 0 [facility] Comment on above: Performed By: #### 2 564562 ####KADEN Urinalysis Manual Uklfpenlkm[address] [place] [address] UA Squam Epithelial 0-5 Normal 0-5 [facility] Comment on above: Performed By: #### 2 392870 ####KADEN Urinalysis Manual Gywrhezzql5752 [place] [address] UA Urobilinogen Negative Normal [facility] Comment on above: Performed By: #### 2 517745 ####KADEN Urinalysis Manual Whczgggyky8498 [place] [address] UA WBC 0-5 Normal 0-5 [facility] Comment on above: Performed By: #### 2 409216 ####KADEN Urinalysis Manual Dfvmmisgss7857 [place] [address] Urine, color Yellow Normal Yellow [facility] Comment on above: Performed By: #### 2 311327 ####KADEN Urinalysis Manual Zbowlqgekl1537[address] [place] [address] Urine, glucose Negative Normal Negative [facility] Comment on above: Performed By: #### 2 882407 ####KADEN Urinalysis Manual Qhxuzhrzqx[address]46[address] [place] [address] Urine, ketones presence 1+ Abnormal Negative [facility] Comment on above: Performed By: #### 2 698976 ####KADEN Urinalysis Manual Uwmivuxthb8176[address] [place] [address] Urine, urobilinogen Negative Normal Negative [facility] Comment on above: Performed By: #### 2 316748 ####KADEN Urinalysis Manual [address]vpiihmfo[address] [place] [address] eGFRon 04-22-2017 eGFR AA >60 Normal [facility] Comment on above: Order Comment: Order added by Discern Expert. Performed By: #### 2 802925 ####KADEN Urinalysis Manual Kaenvlvrwy1538 [place] [address] eGFR (non-black) mL/min/{1.73_m2} Normal [facility] Comment on above: Order Comment: Order added by Discern Expert. Performed By: #### 2 721540 ####KADEN Urinalysis Manual Kmpjvwuady25[address] [place] [address] C Urineon 04-20-2017 C Urine Final Report: Normal skin alonso isolated Normal [facility] Comment on above: Performed By: #### 2 399634 ####KADEN Urinalysis Manual Znuwvrsnhv1521 [place] [address] BMPon 04-18-2017 BUN/Creatinine Ratio 15.0 ratio Normal 5.4-30.[address] [facility] Comment on above: Performed By: #### 2 898292 ####KADENMorelia BairdEzjIuaz7233 [place] [address] Creatinine 0.6 mg/dL Normal 0.6-1.3 [facility] Comment on above: Performed By: #### 2 620914 ####KADENMorelia BairdIlaKway6277 [place] [address] Urea nitrogen 9 mg/dL Normal 7-18 [facility] Comment on above: Performed By: #### 2 962491 ####KADENMorelia BairdOzyYvtg3874 [place] [address] Calcium 9.6 mg/dL Normal 8.4-10.2 [facility] Comment on above: Performed By: #### 2 818093 ####KADENMorelia BairdEokScjb7724 [place] [address] Chloride 102 mmol/L Normal 98-107 [facility] Comment on above: Performed By: #### 2 415378 ####KADENMorelia BairdTefYxzz1761 [place] [address] CO2 23.3 mmol/L Low 24.0-30.0 [facility] Comment on above: Performed By: #### 2 067816 ####KADENMorelia BairdHavRndd3372 [place] [address] Glucose mass conc 93 mg/dL Normal 70-99 [facility] Comment on above: Performed By: #### 2 925919 ####KADENMorelia BairdDefIxfh7769 [place] [address] Potassium molar conc 3.5 mmol/L Normal 3.5-5.[address] [facility] Comment on above: Performed By: #### 2 607382 ####KADENMorelia BairdGuaCiia9097 [place] [address] Sodium 136 mmol/L Normal 136-145 [facility] Comment on above: Performed By: #### 2 830779 ####KADENMorelia BairdXeoYtor8551 [place] [address] UA Completeon 04-18-2017 UA Blood Negative Normal Negative [facility] Comment on above: Performed By: #### 2 571744 ####KADEN Urinalysis Manual Tgtfcgbpqe[address] [place] [address] UA Amorph Chastity 2+ /HPF Abnormal None [facility] Comment on above: Performed By: #### 2 414461 ####KADEN Urinalysis Manual Giqeffputn0325[address] [place] [address] UA Ascorbic Acid 40 mg/dL High <=19 [facility] Comment on above: Performed By: #### 2 998605 ####KADEN Urinalysis Manual Lmzosioczp86[address] [place] [address] UA Clarity Cloudy Abnormal Clear [facility] Comment on above: Performed By: #### 2 261751 ####KADEN Urinalysis Manual Gvmnfoykie[address] [place] [address] UA Leuk Est Negative Normal Negative [facility] Comment on above: Performed By: #### 2 334616 ####KADEN Urinalysis Manual Oicmjuwwbn7849[address] [place] [address] UA Mucous Trace Abnormal Trace [facility] Comment on above: Performed By: #### 2 481047 ####KADEN Urinalysis Manual Cupxoaetkg4057[address] [place] [address] UA Nitrite Negative Normal Negative [facility] Comment on above: Performed By: #### 2 126541 ####KADEN Urinalysis Manual Znstqlzncf2816[address] [place] [address] UA pH 7.0 Normal 4.6-8.0 [facility] Comment on above: Performed By: #### 2 559635 ####KADEN Urinalysis Manual Ebrrbzxcxn[address] [place] [address] UA Protein Negative Normal Negative [facility] Comment on above: Performed By: #### 2 117296 ####KADEN Urinalysis Manual Fffpfruxsw[address] [place] [address] UA Spec Grav 1.018 Normal 1.003-1.03 0 [facility] Comment on above: Performed By: #### 2 515684 ####KADEN Urinalysis Manual Pgfqelnunp9808[address] [place] [address] UA Squam Epithelial 0-5 Normal 0-5 [facility] Comment on above: Performed By: #### 2 381367 ####KADEN Urinalysis Manual Ziluuwuzwq3415[address] [place] [address] UA Urobilinogen Negative Normal [facility] Comment on above: Performed By: #### 2 352720 ####KADEN Urinalysis Manual Sdtkgajmxw0633[address] [place] [address] Urine, color Yellow Normal Yellow [facility] Comment on above: Performed By: #### 2 528214 ####KADEN Urinalysis Manual Djxlvueyow8077[address] [place] [address] Urine, glucose Negative Normal Negative [facility] Comment on above: Performed By: #### 2 144797 ####KADEN Urinalysis Manual Omokyatxyy[address] [place] [address] Urine, ketones presence 2+ Abnormal Negative [facility] Comment on above: Performed By: #### 2 074142 ####KADEN Urinalysis Manual Ojnedwmxxr8684[address] [place] [address] Urine, urobilinogen Negative Normal Negative [facility] Comment on above: Performed By: #### 2 876733 ####KADEN Urinalysis Manual Ywgkgrscqb68[address] [place] [address] eGFRon 04-18-2017 eGFR (non-black) mL/min/{1.73_m2} Normal [facility] Comment on above: Order Comment: Order added by Discern Expert. Performed By: #### 1 [id number] ####KADEN IbxRncs0900 [place] [address] eGFR AA >60 Normal [facility] Comment on above: Order Comment: Order added by Discern Expert. Performed By: #### 1 [id number] ####KADENMorelia BairdBtwGpqh0483 [place] [address] Auto Diffon 04-11-2017 Basophils Auto #/vol (Bld) 0.1 E3/mcL Normal 0.0-0.2 [facility] Comment on above: Order Comment: Order Added by Discern Expert. Performed By: #### 2 965068 ####KADEN BairdJdjVkjn7700 [place] [address] Basophils/100 WBC Auto (Bld) 0.7 % Normal 0.0-2.0 [facility] Comment on above: Order Comment: Order Added by Discern Expert. Performed By: #### 2 255509 ####KADEN BairdCubNgof6783 [place] [address] Eos Absolute 0.0 E3/mcL Normal 0.0-0.7 [facility] Comment on above: Order Comment: Order Added by Discern Expert. Performed By: #### 2 180469 ####KADEN LpwBnou7890 [place] [address] Eosinophils/100 leukocytes 0.1 % Normal 0.0-11.0 [facility] Comment on above: Order Comment: Order Added by Discern Expert. Performed By: #### 2 633008 ####KADEN UanPiri0407 [place] [address] Lymphocytes 1.5 E3/mcL Normal 1.2-3.4 [facility] Comment on above: Order Comment: Order Added by Discern Expert. Performed By: #### 2 774357 ####KADEN NygDjxu4016 [place] [address] Lymphocytes/100 leukocytes 17.2 % Low 20.0-55.0 [facility] Comment on above: Order Comment: Order Added by Discern Expert. Performed By: #### 2 331221 ####KADEN RcpEyob9564 [place] [address] Bryan Absolute 0.6 E3/mcL Normal 0.0-0.7 [facility] Comment on above: Order Comment: Order Added by Discern Expert. Performed By: #### 2 287914 ####KADEN PjwXadk3905 [place] [address] Monocytes/100 leukocytes 6.6 % Normal 0.0-10.0 [facility] Comment on above: Order Comment: Order Added by Discern Expert. Performed By: #### 2 366985 ####KADEN SrmVgfa8346 [place] [address] Neutro Absolute 6.7 E3/mcL High 1.4-6.5 [facility] Comment on above: Order Comment: Order Added by Discern Expert. Performed By: #### 2 593695 ####KADEN Luceroo1025 [place] [address] Neutro Auto 75.4 % High 37.0-75.0 [facility] Comment on above: Order Comment: Order Added by Discern Expert. Performed By: #### 2 685506 ####KADEN Luceroo1025 [place] [address] BMPon 04-11-2017 BUN/Creatinine Ratio 12.9 ratio Normal 5.4-30.[address] [facility] Comment on above: Performed By: #### 2 515406 ####KADEN Bai1025 [place] [address] Creatinine 0.7 mg/dL Normal 0.6-1.3 [facility] Comment on above: Performed By: #### 2 [id number] ####KADEN Bai1025 [place] [address] Urea nitrogen 9 mg/dL Normal 7-18 [facility] Comment on above: Performed By: #### 2 [id number] ####KADEN BairdDwsMvcy9844 [place] [address] Calcium 9.5 mg/dL Normal 8.4-10.2 [facility] Comment on above: Performed By: #### 2 [id number] ####KADEN BairdGglFgdq2975 [place] [address] Chloride 105 mmol/L Normal 98-107 [facility] Comment on above: Performed By: #### 2 [id number] ####KADEN BairdLnbRqwt7128 [place] [address] CO2 22.5 mmol/L Low 24.0-30.0 [facility] Comment on above: Performed By: #### 2 [id number] ####KADEN BairdHoxHgte7911 [place] [address] Glucose mass conc 92 mg/dL Normal 70-99 [facility] Comment on above: Performed By: #### 2 [id number] ####KADEN BairdVllAauz4058 [place] [address] Potassium molar conc 3.6 mmol/L Normal 3.5-5.[address] [facility] Comment on above: Performed By: #### 2 [id number] ####KADENMorelia BairdZzqLknz0336 [place] [address] Sodium 137 mmol/L Normal 136-145 [facility] Comment on above: Performed By: #### 2 [id number] ####KADEN VkfTdzk2474 [place] [address] BhCG Quanton 04-11-2017 Beta hCG Qnt 8564.0 mIU/m Normal [facility] Comment on above: Result Comment: FEMA LE (NON-) & MALE <3 BORDERLINE 3 - 5 SUGGEST REPEAT TESTING FEMALE () 1 D - 1 WK 5 - 50 1 - 2 WK 50 - 500 2 - 3 WK 100 - 5000 3 - 4 WK 500 - 96531 4 - 5 WK 1000 - 35940 5 - 6 WK 38941 - 918728 6 - 8 WK 22228 - 433627 2 - 3 [place] [address] - 842109 Performed By: #### 2 [id number] ####KADENMorelia BairdAclWhiu9649 [place] [address] CBC w/ Auto Diffon 7 Erythrocyte distribution width Auto Ratio (RBC) 13.9 % Normal 11.5-14.5 [facility] Comment on above: Performed By: #### 2 [id number] ####KADENMorelia BairdNpaCuok2973 [place] [address] Erythrocytes (RBC) 4.63 E6/mcL Normal 3.90-5.40 [facility] Comment on above: Performed By: #### 2 [id number] ####KADENMorelia BairdItlUqbw7684 [place] [address] Hematocrit (HCT) 38.2 % Normal 36.0-48.0 [facility] Comment on above: Performed By: #### 2 [id number] ####KADENMorelia BairdGvdGikd6182 [place] [address] Hemoglobin mass conc (Bld) 12.6 g/dL Normal 12.0-16.0 [facility] Comment on above: Performed By: #### 2 [id number] ####KADENMorelia BairdBrgAcin3285 [place] [address] MCH 27.2 pg Normal 27.0-31.0 [facility] Comment on above: Performed By: #### 2 712719 ####KADEN BairdAdgTgxt3048 [place] [address] MCHC mass conc (RBC) 33.0 g/dL Normal 33.0-37.[address] [facility] Comment on above: Performed By: #### 2 585162 ####KADEN BairdZytMyyj1908 [place] [address] MCV 82.6 fL Normal 78.0-100.0 [facility] Comment on above: Performed By: #### 2 [id number] ####KADEN BairdScvYobc1720 [place] [address] Platelet mean volume (PMV) 8.0 fL Normal 7.4-11.0 [facility] Comment on above: Performed By: #### 2 457107 ####KADEN Luceroo1025 [place] [address] Platelets 233 E3/mcL Normal 130-400 [facility] Comment on above: Performed By: #### 2 113872 ####KADEN BairdCriBlaf8244 [place] [address] WBC (Leukocytes) 9.0 E3/mcL Normal 3.6-11.0 [facility] Comment on above: Performed By: #### 2 [id number] ####KADEN BairdAzoVyik4595 [place] [address] UA Completeon 04-11-2017 UA Blood Negative Normal Negative [facility] Comment on above: Result Comment: High concentration of Ascorbic Acid present in urine. This may cause False Negative Occ Blood. Review microscopic results and patient's clinical symptoms. Performed By: #### 8 [id number] ####KADEN Urinalysis Automated Oexmypeyvp9143 [place] [address] UA Amorph Chatsity 1+ /HPF Abnormal None [facility] Comment on above: Performed By: #### 8 [id number] ####KADEN Urinalysis Automated Hhxasgdxrf8629 [place] [id number] UA Ascorbic Acid 40 mg/dL High <=19 [facility] Comment on above: Performed By: #### 8 [id number] ####KADEN Urinalysis Automated Gmoakbxcfx3665 [place] [address] UA Bacteria Trace Abnormal None [facility] Comment on above: Performed By: #### 8 [id number] ####KADEN Urinalysis Automated Tsjmiekyxu7760 [place] [address]369[address] UA Clarity Cloudy Abnormal Clear [facility] Comment on above: Performed By: #### 8 [id number] ####KADEN Urinalysis Automated Bndqpespnw8922 [place] [address] UA Leuk Est Negative Normal Negative [facility] Comment on above: Performed By: #### 8 [id number] ####KADEN Urinalysis Automated Noqlnlrkqb5270 [place] [address] UA Mucous Few Abnormal Trace [facility] Comment on above: Performed By: #### 8 [id number] ####KADEN Urinalysis Automated [address] [place] [address] UA Nitrite Negative Normal Negative [facility] Comment on above: Performed By: #### 8 [id number] ####KADEN Urinalysis Automated Ue[address] [place] [address] UA pH 7.0 Normal 4.6-8.0 [facility] Comment on above: Performed By: #### 8 [id number] ####KADEN Urinalysis Automated Lzewfu[address] [place] [address] UA Protein Negative Normal Negative [facility] Comment on above: Performed By: #### 8 [id number] ####KADEN Urinalysis Automated Umvsnxctqv7011 [place] [address] UA Spec Grav 1.025 Normal 1.003-1.03 0 [facility] Comment on above: Performed By: #### 8 [id number] ####KADEN Urinalysis Automated Oiazgjemxe4360 [place] [address] UA Squam Epithelial 5-10 Abnormal 0-5 [facility] Comment on above: Performed By: #### 8 [id number] ####KADEN Urinalysis Automated Jpyinffkdl5957 [place] [address] UA Urobilinogen 2.0 mg/dL Abnormal [facility] Comment on above: Performed By: #### 8 [id number] ####KADEN Urinalysis Automated Uomierqxbq4635 [place] [address] Urine, color Yellow Normal Yellow [facility] Comment on above: Performed By: #### 8 [id number] ####KADEN Urinalysis Automated Lgjigeannb9241 [place] [address] Urine, erythrocytes 0-3 Normal 0-3 [facility] Comment on above: Performed By: #### 8 [id number] ####KADEN Urinalysis Automated Vvrlqezvlh6439 [place] [address] Urine, glucose Negative Normal Negative [facility] Comment on above: Performed By: #### 8 [id number] ####KADEN Urinalysis Automated [address] [place] [address] Urine, ketones presence 2+ Abnormal Negative [facility] Comment on above: Performed By: #### 8 [id number] ####KADEN Urinalysis Automated Qrbcbsgvcv[address] [place] [address] Urine, urobilinogen Negative Normal Negative [facility] Comment on above: Performed By: #### 8 [id number] ####KADEN Urinalysis Automated Zryxgpzkav[address] [place] [address] eGFRon 04-11-2017 eGFR (non-black) mL/min/{1.73_m2} Normal [facility] Comment on above: Order Comment: Order added by Discern Expert. Performed By: #### 1 [id number] ####KADEN LbbLyce2575 [place] [address] eGFR AA >60 Normal [facility] Comment on above: Order Comment: Order added by Discern Expert. Performed By: #### 1 [id number] ####KADEN TheHtfa7568 [place] [address] U BhCG Qlton 03-20-2017 HCG.beta subunit Qn Negative Normal Neg [facility] Comment on above: Performed By: #### 2 [id number] ####KADEN Urinalysis Manual Jzeixgyvdy5534 [place] [id number] UA Completeon 03-20-2017 UA Blood Negative Normal Negative [facility] Comment on above: Performed By: #### 8 [id number] ####KADEN Urinalysis Automated Owyfzqbzyy6557 [place] [address] UA Amorph Chastity 1+ /HPF Abnormal None [facility] Comment on above: Performed By: #### 8 [id number] ####KADEN Urinalysis Automated Pjqjzkzela0896 [place] [address] UA Bacteria 2+ /HPF Abnormal None [facility] Comment on above: Performed By: #### 8 [id number] ####KADEN Urinalysis Automated Jjxqiwsuks3258 [place] [address] UA Clarity Cloudy Abnormal Clear [facility] Comment on above: Performed By: #### 8 [id number] ####KADEN Urinalysis Automated [address]tohh[address]ulm[address] [place] [address] UA Leuk Est 1+ Abnormal Negative [facility] Comment on above: Performed By: #### 8 [id number] ####KADEN Urinalysis Automated Y[address]oyv[address] [place] [address] UA Mucous Occasional Abnormal Trace [facility] Comment on above: Performed By: #### 8 [id number] ####KADEN Urinalysis Automated Fhuojaqstv[address] [place] [address] UA Nitrite Negative Normal Negative [facility] Comment on above: Performed By: #### 8 [id number] ####KADEN Urinalysis Automated [address]rnw[address]vyq[address] [place] [address] UA pH 6.0 Normal 4.6-8.0 [facility] Comment on above: Performed By: #### 8 [id number] ####KADEN Urinalysis Automated Osljhwxdeb[address] [place] [address] UA Protein 1+ Abnormal Negative [facility] Comment on above: Performed By: #### 8 [id number] ####KADEN Urinalysis Automated Z[address]jjtdbs[address] [place] [address] UA Spec Grav 1.019 Normal 1.003-1.03 0 [facility] Comment on above: Performed By: #### 8 [id number] ####KADEN Urinalysis Automated R[address]mtvitwb[address] [place] [address] UA Squam Epithelial 5-10 Abnormal 0-5 [facility] Comment on above: Performed By: #### 8 [id number] ####KADEN Urinalysis Automated Kzjncwckvl2689 [place] [address] UA Urobilinogen Negative Normal [facility] Comment on above: Performed By: #### 8 [id number] ####KADEN Urinalysis Automated Nfqekbwtjb1636 [place] [address] UA WBC >50 Abnormal 0-5 [facility] Comment on above: Performed By: #### 8 [id number] ####KADEN Urinalysis Automated Xbjliljnfw3328 [place] [address] Urine, color Yellow Normal Yellow [facility] Comment on above: Performed By: #### 8 [id number] ####KADEN Urinalysis Automated Wokzrfkcel1886 [place] [address] Urine, erythrocytes 5-10 Abnormal 0-3 [facility] Comment on above: Performed By: #### 8 [id number] ####KADEN Urinalysis Automated Vymxbqwxmo5334 [place] [address] Urine, glucose Negative Normal Negative [facility] Comment on above: Performed By: #### 8 [id number] ####KADEN Urinalysis Automated Ecijpueqku6909 [place] [address] Urine, ketones presence Negative Normal Negative [facility] Comment on above: Performed By: #### 8 [id number] ####KADEN Urinalysis Automated Mtnpcxnatq0101 [place] [address] Urine, urobilinogen Negative Normal Negative [facility] Comment on above: Performed By: #### 8 [id number] ####KADEN Urinalysis Automated Vgeavfxkrn8891 [place] [address] Vital Signs Date Time Vital Sign Value Performing Clinician Facility 07-18-2023 10:30-0500 Body mass index (BMI) [Ratio] 26.7 kg/m2 [employer] Work Phone: [facility] 07-18-2023 10:30-0500 Body weight 75.03 kg [employer] Work Phone: [facility] 07-18-2023 10:30-0500 Diastolic blood pressure 68 mm[Hg] [employer] Work Phone: [facility] 07-18-2023 10:30-0500 Systolic blood pressure 106 mm[Hg] Cuong Ortiz DO Work Phone: [facility] 02-11-2023 14:13-0400 Body height 165.1 cm PAZaho Wyatt Work Phone: [facility] 02-11-2023 14:13-0400 Body temperature 97.9 [degF] FERMIN-Ventura Wyatt Work Phone: [facility] 02-11-2023 14:13-0400 Body weight 70.55 kg FERMIN-Ventura Wyatt Work Phone: [facility] 02-11-2023 14:13-0400 Diastolic blood pressure 80 mm[Hg] FERMIN-Ventura Wyatt Work Phone: [facility] 02-11-2023 14:13-0400 Heart rate 60 /min SADAF Wyatt Work Phone: [facility] 02-11-2023 14:13-0400 Respiratory rate 15 /min SADAF Wyatt Work Phone: [facility] 02-11-2023 14:13-0400 SaO2% (BldA) [Mass fraction] 99 % SADAF Wyatt Work Phone: [facility] 02-11-2023 14:13-0400 Systolic blood pressure 134 mm[Hg] SADAF Waytt Work Phone: [facility] 02-08-2023 12:36-0400 Body height 165.1 cm SADAF Wyatt Work Phone: [facility] 02-08-2023 12:36-0400 Body temperature 98.2 [degF] SADAF Wyatt Work Phone: [facility] 02-08-2023 12:36-0400 Body weight 72.57 kg SADAF Wyatt Work Phone: [facility] 02-08-2023 12:36-0400 Diastolic blood pressure 84 mm[Hg] PA-C Andie Wyatt Work Phone: [facility] 02-08-2023 12:36-0400 Heart rate 74 /min PA-C Andie Wyatt Work Phone: [facility] 02-08-2023 12:36-0400 Respiratory rate 15 /min PA-C Andie Wyatt Work Phone: [facility] 02-08-2023 12:36-0400 SaO2% (BldA) [Mass fraction] 98 % PA-C Andie Wyatt Work Phone: [facility] 02-08-2023 12:36-0400 Systolic blood pressure 150 mm[Hg] PA-C Andie Wyatt Work Phone: [facility] 12-19-2022 14:43-0400 Body temperature 96.9 [degF] FERMIN-C Andie Wyatt Work Phone: [facility] 12-19-2022 14:43-0400 Diastolic blood pressure 74 mm[Hg] PA-C Andie Wyatt Work Phone: [facility] 12-19-2022 14:43-0400 Heart rate 59 /min FERMIN-C Andie Wyatt Work Phone: [facility] 12-19-2022 14:43-0400 Respiratory rate 18 /min PA-Ventura Wyatt Work Phone: [facility] 12-19-2022 14:43-0400 SaO2% (BldA) [Mass fraction] 100 % PA-C Andie Wyatt Work Phone: [facility] 12-19-2022 14:43-0400 Systolic blood pressure 115 mm[Hg] PA-C Andie Wyatt Work Phone: [facility] 12-19-2022 14:00-0400 Diastolic blood pressure 89 mm[Hg] PA-Ventura Wyatt Work Phone: [facility] 12-19-2022 14:00-0400 Heart rate 79 /min PA-C Andie Wyatt Work Phone: [facility] 12-19-2022 14:00-0400 Respiratory rate 16 /min PA-Ventura Wyatt Work Phone: [facility] 12-19-2022 14:00-0400 SaO2% (BldA) [Mass fraction] 99 % PA-Ventura Wyatt Work Phone: [facility] 12-19-2022 14:00-0400 Systolic blood pressure 150 mm[Hg] PA-C Andie Wyatt Work Phone: [facility] 12-19-2022 03:30-0400 Body height 165.1 cm PA-Ventura Wyatt Work Phone: [facility] 12-19-2022 03:30-0400 Body weight 72.2 kg PA-Ventura Wyatt Work Phone: [facility] 12-18-2022 23:07-0400 Body height 165.1 cm PA-Ventura Wyatt Work Phone: [facility] 12-18-2022 23:07-0400 Body weight 74.2 kg PA-Ventura Wyatt Work Phone: [facility] 12-18-2022 23:05-0400 Body temperature 98.5 [degF] FERMIN-Ventura Wyatt Work Phone: [facility] 08-20-2022 14:31-0500 Body height 165.1 cm PA-Ventura Wyatt Work Phone: [facility] 08-20-2022 14:31-0500 Body temperature 98.9 [degF] PA-C Andie Wyatt Work Phone: [facility] 08-20-2022 14:31-0500 Body weight 71.55 kg PA-Ventura Wyatt Work Phone: [facility] 08-20-2022 14:31-0500 Diastolic blood pressure 87 mm[Hg] PA-Ventura Wyatt Work Phone: [facility] 08-20-2022 14:31-0500 Heart rate 97 /min PAZhao Wyatt Work Phone: [facility] 08-20-2022 14:31-0500 Respiratory rate 18 /min PA-Ventura Wyatt Work Phone: [facility] 08-20-2022 14:31-0500 SaO2% (BldA) [Mass fraction] 98 % PA-Ventura Wyatt Work Phone: [facility] 08-20-2022 14:31-0500 Systolic blood pressure 135 mm[Hg] PA-Ventura Wyatt Work Phone: [facility] 02-08-2022 03:06-0400 Body weight 68.[address] CUONG ORTIZ . [facility] Comment on above: Performed By: #### AFPMAT #### [facility] [address] [place] [address] Dr. Juan Antonio Ibarra 02-05-2022 18:24-0400 Body height 165.1 cm PAZhao Wyatt Work Phone: [facility] 02-05-2022 18:24-0400 Body temperature 98.3 [degF] PAZhao Wyatt Work Phone: [facility] 02-05-2022 18:24-0400 Body weight 67.9 kg SADAF Wyatt Work Phone: [facility] 02-05-2022 18:24-0400 Diastolic blood pressure 68 mm[Hg] PA-Ventura Wyatt Work Phone: [facility] 02-05-2022 18:24-0400 Heart rate 92 /min SADAF Wyatt Work Phone: [facility] 02-05-2022 18:24-0400 Respiratory rate 18 /min PAZhao Wyatt Work Phone: [facility] 02-05-2022 18:24-0400 SaO2% (BldA) [Mass fraction] 99 % SADAF Wyatt Work Phone: [facility] 02-05-2022 18:24-0400 Systolic blood pressure 125 mm[Hg] SADAF Wyatt Work Phone: [facility] Encounters Encounter Date Encounter Type Care Provider Facility Start: 10-14-2023 End: 10-14-2023 ambulatory CUONG DIANA Not Available Start: 09-30-2023 End: 09-30-2023 ambulatory CUONG DIANA Not Available Start: 09-12-2023 End: 09-12-2023 ambulatory CUONG DIANA Not Available Start: 08-15-2023 End: 08-15-2023 ambulatory ANDIE WYATT [facility] Start: 08-15-2023 End: 08-15-2023 ambulatory CUONG DIANA Not Available Start: 07-22-2023 Documentation procedure Lucio HARPER Work Phone: [facility] Comment on above: Outgoing Ca ll [...] Start: 07-18-2023 End: 07-18-2023 ambulatory ANDIE Thibodeaux [facility] Start: 07-03-2023 End: 07-03-2023 ambulatory CUONG R [facility] Start: 07-03-2023 End: 07-03-2023 Telemedicine consultation with patient Rosaura HARPER Work Phone: [facility] Comment on above: Family history of ge netic disorder (Primary Dx); Genetic testing; Fetus with trisomy 13, single gestation Start: 06-20-2023 End: 06-20-2023 ambulatory BARB KRAMER Not Available Start: 05-23-2023 End: 05-23-2023 ambulatory CUONG ORTIZ Not Available Start: 04-16-2023 ambulatory Cesar Clayton acility:[facility] Start: 02-11-2023 End: 02-11-2023 Emergency department patient visit Johnson Annie Facility:[facility] Start: 02-11-2023 End: 02-11-2023 Emergency department patient visit SADAF Wyatt Work Phone: [facility] Work Phone: Start: 02-08-2023 End: 02-08-2023 Emergency department patient visit Elle Rhodes Facility:[facility] Start: 02-08-2023 End: 02-08-2023 Emergency department patient visit SADAF Wyatt Work Phone: [facility] Work Phone: Start: 12-19-2022 End: 12-19-2022 ambulatory Arden Orozco Facility:[facility] Start: 12-19-2022 End: 12-19-2022 Evaluation and management of inpatient SADAF Wyatt Work Phone: [facility] Work Phone: Start: 12-19-2022 End: 12-19-2022 observation encounter SADAF Wyatt Work Phone: [facility] Work Phone: Start: 10-24-2022 End: 10-24-[address] CUONG ORTIZ . Facility: Start: 10-23-2022 Registered Recurring SADAF Wyatt Work Phone: [facility] Start: 08-20-2022 End: 08-20-2022 Emergency department patient visit Elle Rhodes Facility:[facility] Start: 08-20-2022 End: 08-20-2022 Emergency department patient visit SADAF Wyatt Work Phone: [facility] Work Phone: Start: 07-23-[address] CUONG ORTIZ . Facili ty:[facility] Start: 07-09-2022 End: 07-09-[address] CUONG ORTIZ . Facility:[facility] Start: 07-05-2022 End: 07-07-2022 Evaluation and management of inpatient DR CUONG ORTIZ . Facility:[facility] Start: 07-02-2022 End: 07-02-2022 [facility] Facility: Start: 06-28-2022 End: 06-28-[address] CUONG ORTIZ . Facility: Start: 06-21-2022 End: 06-21-2022 [facility] Facility:[facility] Start: 06-16-2022 End: 06-16-[address] CUONG ORTIZ . Facility:[facility] Start: 06-14-2022 End: 06-14-2022 ambulatory BARB KRAMER . Facility:[facility] Start: 06-14-2022 End: 06-14-[address] CUONG ORTIZ . Facility: Start: 06-07-2022 End: 06-07-[address] CUONG ORTIZ . Facility:[facility] Start: 06-04-2022 End: 06-04-[address] CUONG ORTIZ . Facility:[facility] Start: 06-02-2022 End: 06-02-[address] CUONG ORTIZ . Facility:[facility] Start: 05-31-2022 End: 05-31-[address] CUONG ORTIZ . Facility:[facility] Start: 05-24-2022 End: 05-24-2022 [facility] Facility:[facility] Start: 04-04-2022 End: 04-05-2022 [...] department patient visit SADAF Wyatt Work Phone: [facility] Start: 12-26-2021 End: 12-27-[address] CUONG ORTIZ . Facility:[facility] Start: 12-07-2021 End: 12-08-[address] CUONG ORTIZ . Facility: Start: 12-27-2017 End: 12-27-2017 Patient encounter Christian Ivan Facility:[facility] Start: 12-12-2017 End: 12-12-2017 Emergency department patient visit Luke Barbosa Facility:[facility] Start: 12-12-2017 Patient encounter Facil [id number] Start: 12-07-2017 Evaluation and management of inpatient CLARA JAMA Facility:[facility] Start: 12-03-2017 Evaluation and management of inpatient CLARA JAMA Facility:[facility] Start: 12-03-2017 Patient encounter procedure CLARA JAMA Facility:[facility] Start: 12-02-2017 Evaluation and management of inpatient CLARA JAMA Facility:[facility] Start: 11-30-2017 End: 12-02-2017 Evaluation and management of inpatient CLARA OLIVIA EVITA [facility] Start: 11-30-2017 End: 11-30-2017 Patient encounter Salomon Nguyen Facility:[facility] Start: 11-30-2017 Patient encounter Facil [id number] Start: 11-28-2017 End: 11-28-2017 Patient encounter CLARAVASQUEZ DERASE [facility] Start: 11-21-2017 End: 11-21-2017 Patient encounter OKSANA MASON [facility] Start: 11-21-2017 End: 11-21-2017 Patient encounter Juanita Cole Facility:[facility] Start: 11-20-2017 Patient encounter Facil ity:[id number] Start: 11-17-2017 End: 11-17-2017 Patient encounter Christian A Sehkhar Facility:[facility] Start: 11-16-2017 Patient encounter Quyen [id number] Start: 11-07-2017 End: 11-07-2017 Patient encounter OKSANA AMADO [facility] Start: 10-31-2017 End: 10-31-2017 Patient encounter CLARA JAMA [facility] Start: 10-24-2017 End: 10-24-2017 Patient encounter MARCO ANTONIO Bertin ANTONIO [facility] Start: 10-16-2017 End: 10-16-2017 Patient encounter Christian A [place] Facility:[facility] Start: 10-08-2017 End: 10-08-2017 Patient encounter [facility] Start: 10-08-2017 End: 10-08-2017 Patient encounter OKSANA AMADO [facility] Start: 10-01-2017 End: 10-02-2017 Patient encounter Christian A [place] Facility:[facility] Start: 09-10-2017 End: 09-11-2017 Patient encounter LUIS DANIEL TRAMMELL [facility] Start: 09-10-2017 End: 09-10-2017 Patient encounter KRIS Yola HOYT [facility] Start: 09-10-2017 End: 09-10-2017 Patient encounter LCARA JAMA [facility] Start: 09-03-2017 End: 09-04-2017 Patient encounter Christian A Shekhar Facility:[facility] Start: 08-28-2017 Ambulatory NAGA [facility] Start: 08-13-2017 End: 08-14-2017 Patient encounter CLARA JAMA [facility] Start: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
--- NOTE | 2023-10-16 14:07 | US_ITS ---
[address] [address] Patient Name: ZULEIKA WADDELL MRN: [id number] date: 1990 Sex: F Assigned Patient Location: [facility] Current Patient Location: [facility] Accession/Order Number: [id number] Exam Date: 10/16/2023 14:10 Report Date: 10/16/2023 15:05 At the request of: DAVE CUELLAR Procedure: US OB BPP w non-stress EXAMINATION: US OB BPP w non-stress HISTORY: Family history of trisomy 13 Z82.79 COMPARISON: 10/09/2023 TECHNIQUE: Ultrasound biophysical profile was performed in the radiology department. non-reactive stress testing was performed by nursing staff in the birthing center. FINDINGS: BREATHING MOVEMENTS: 0.0 GROSS BODY MOVEMENTS: 2.0 TONE: 2.0 QUALITATIVE AMNIOTIC FLUID VOLUME: 2.0 PRESENTATION: CEPHALIC HEART RATE: 135.7 bpm H.B./min AMNIOTIC FLUID VOLUME: 11.1 cm cm GESTATIONAL AGE: 33 weeks 2 days CONCLUSION: Total biophysical profile score: 6/8 Electronically authenticated by: GAMALIEL CRUMP Date: 10/16/2023 15:05
[2023-10-16 14:56] VITALS: BP 121/67; PULSE 83
== END 2023-10-16 16:09 | disposition home or self-care (01) ==
LOC: US 07:16 → FBC 14:07
PROVIDERS: PCP Physician Assistant; Visit Provider Obstetrics & Gynecology
DX: Z82.79 Family history of other congenital malformations, deformations and chromosomal abnormalities (principal); Z3A.33 33 weeks gestation of pregnancy
CPT/HCPCS: 76818

== ENCOUNTER 2023-10-19 09:00 | Outpatient (OUT) | payer MEDICAID, SELFPAY ==
--- NOTE | 2023-10-19 | US_ITS ---
[address] [address] Patient Name: ZULEIKA WADDELL MRN: [id number] date: 1990 Sex: F Assigned Patient Location: [facility] [place] Current Patient Location: [facility] [place] Accession/Order Number: [id number] Exam Date: 10/19/2023 14:53 Report Date: 10/21/2023 07:34 At the request of: DAVE CUELLAR Procedure: US OB BPP w non-stress EXAMINATION: US OB BPP w non-stress HISTORY: REPEAT BPP COMPARISON: 10/16/2023 TECHNIQUE: Ultrasound biophysical profile was performed in the radiology department. FINDINGS: BREATHING MOVEMENTS: 2.0 GROSS BODY MOVEMENTS: 2.0 TONE: 2.0 QUALITATIVE AMNIOTIC FLUID VOLUME: 2.0 PRESENTATION: CEPHALIC HEART RATE: 131.1 bpm H.B./min AMNIOTIC FLUID VOLUME: 17.1 cm cm GESTATIONAL AGE: 33 weeks 5 days CONCLUSION: Total biophysical profile score: 8.0 Electronically authenticated by: GAMALIEL CRUMP Date: 10/21/2023 07:34
--- OUTSIDE RECORDS SUMMARY | 2023-10-19 09:14 | XMS_ITS | CCD ---
Author Organization [facility] Care Team Providers Care Bell Captain Name Role Phone CLARA JAMA Unavailable Unavail able SERENITY MLADONADO Unavailable Unavailable OKSANA CARO Unavailable UnavaNAGA Hull Unavailable Unavailable BARBOSA, LUKE MALIK Unavailable Unavailable PatrickSalomon terrell R Unavailable Unavailable Patrick, Salomon R Unavailable Unavailable Barbosa, Luke Unavailable Unavailable Shekhar, Christian A Unavailable Unavailable Barbosa, Luke Unavailable Unavailable [place], Christian A Unavailable Unavailable Barbosa, Luke Unavailable Unavailable [place], Christian A Unavailable Unavailable Barbosa, Luke Unavailable Unavailable Shekhar, Christian A Unavailable Unavailable Barbosa, Luke Unavailable Unavailable [place], Christian A Unavailable Unavailable [place], Christian A Unavailable Unavailable Barbosa, Luke Unavailable Unavailable Shekhar, Christian A Unavailable Unavailable Barbosa, Luke Unavailable Unavailable Shekhar, Christian A Unavailable Unavailable [place], Christian A Unavailable Unavailable Barbosa, Luke Unavailable Unavailable Barbosa, Luke Unavailable Unavailable Woo, Emiliano Unavailable Unavailable Woo, Emiliano Unavailable Unavailable Patrick, Salomon R Unavailable Unavailable Barbosa, Luke Unavailable Unavailable Barbosa, Luke Unavailable Unavailable Oscar, Jag W Unavailable Unavailable [place], Jag W Unavailable Unavailable [place], Christian A Unavailable Unavailable Barbosa, Luke Unavailable Unavailable [place], Christian A Unavailable Unavailable Barbosa, Luke [...] Unavail able Oscar, Jag W Unavailable Unavailable [place], Jag W Unavailable Unavailable Barbosa, Luke Unavailable Unavailable No Doctor Assigned, Nodr Unavailable Unavail able SavageGamaliel M Unavailable Unavailable Barbosa, Luke Unavailable Unavailable Hannah, Aaron A Unavailable Unavailable Hannah, Aaron A Unavailable Unavailable Patrick, Salomon R Unavailable Unavailable Patrick, Salomon R Unavailable Unavailable Barbosa, Luke Unavailable Unavailable Frank, Juanita Unavailable Unavailable Frank, Juanita Unavailable Unavailable Barbosa, Luke Unavailable Unavailable [place], Christian A Unavailable Unavailable [place], Christian A Unavailable Unavailable Barbosa, Luke Unavailable Unavailable Shekhar, Christian A Unavailable Unavailable Barbosa, Luke Unavailable Unavailable Barbosa, Luke Unavailable Unavailable [place], Jag W Unavailable Unavailable Oscar, Jag W Unavailable Unavailable [place], Christian A Unavailable Unavailable Barbosa, Luke Unavailable Unavailable Gamaliel Savage M Unavailable Unavailable Gamaliel Savage M Unavailable Unavailable Barbosa, Luke Unavailable Unavailable [place], Christian A Unavailable Unavailable Barbosa, Luke [...] Referring Unavailable [facility] Primary Care Unavailable JAMA, CLAAR Referring Unavailable [facility] Primary Care Unavailable JAMA, CLARA Admitting Unavailable [facility] Primary Care Unavailable SERENITY MALDONADO Consulting Unavailable EHRENBERG, OKSANA Attending Unavailable SADAF Wyatt Primary Care Provider SADAF Hess Emergency Provider [phone] SADAF Wyatt Primary Care Provider Meagan [facility] Elle E Emergency Provider DIANA .DR ACOSTA Consulting Unavailable [facility] Primary Care Unavailable DIANA ., DR ACOSTA Attending Unavailable DIANA ., DR ACOSTA Admitting Unavailable DIANA ., DR ACOSTA Admitting Unavailable DIANA ., DR ACOSTA Attending Unavailable [facility] Primary Care Unavailable DIANA ., DR ACOSTA Consulting Unavailable SUSI, DR FELECIA Chadwick Consulting Unavailable [facility] Primary Care Unavailable KARASIK ., DR CAMACHO Admitting Unavailabl e KARASIK ., DR CAMACHO Attending Unavailabl e KARASIK ., DR CAMACHO Consulting Unavailabl e WEST, DR GAMALIEL Fischer Consulting Unavailable DIANA ., DR ACOSTA Consulting Unavailable ZIEBER, DR FELECIA Chadwick Consulting Unavailable WILLIAMS ., BARB Admitting Unavailable WILLIAMS ., BARB Attending Unavailable [facility] Primary Care Unavailable WILLIAMS ., BARB Consulting Unavailable DIANA ., DR ACOSTA Admitting Unavailable DIANA ., DR ACOSTA Attending Unavailable [facility] Primary Care Unavailable DIANA ., DR ACOSTA Consulting Unavailable [facility] Primary Care Unavailable KARASIK ., DR CAMACHO Admitting Unavailabl e KARASIK ., DR CAMACHO Attending Unavailabl e KARASIK ., DR CAMACHO Consulting Unavailabl e DIANA ., DR ACOSTA Admitting Unavailable DIANA ., DR ACOSTA Attending Unavailable [facility] Primary Care Unavailable DIANA ., DR ACOSTA Consulting Unavailable ZIEBER, DR FELECIA Chadwick Consulting Unavailable DIANA ., DR ACOSTA Admitting Unavailable DIANA ., DR ACOSTA Attending Unavailable [facility] Primary Care Unavailable DIANA ., DR ACOSTA Consulting Unavailable ZIEBER, DR FELECIA Chadwick Consulting Unavailable PRATIMA, BRODIE Consulting Unavailable DIANA ., DR ACOSTA Consulting Unavailable [facility] Primary Care Unavailable DIANA ., DR ACOSTA Attending Unavailable DIANA ., DR ACOSTA Admitting Unavailable ZIEBER, DR FELECIA Chadwick Consulting Unavailable DIANA ., DR ACOSTA Consulting Unavailable [facility] Primary Care Unavailable DIANA ., DR ACOSTA Attending Unavailable DIANA ., DR ACOSTA Admitting Unavailable DIANA ., DR ACOSTA Admitting Unavailable DIANA ., DR ACOSTA Attending Unavailable [facility] Primary Care Unavailable DIANA ., DR ACOSTA Consulting Unavailable ZIEBER, DR FELECIA Chadwick Consulting Unavailable DIANA ., DR ACOSTA Admitting Unavailable DIANA ., DR ACOSTA Attending Unavailable [facility] Primary Care Unavailable WEST, DR GAMALIEL Fischer Consulting Unavailable DIANA ., DR ACOSTA Consulting Unavailable [facility] Primary Care Unavailable KARASIK ., DR CAMACHO Admitting Unavailabl e KARASIK ., DR CAMACHO Attending Unavailabl e KARASIK ., DR CAMACHO Consulting Unavailabl e DIANA ., DR ACOSTA Consulting Unavailable ZIEBER, DR FELECIA Chadwick Consulting Unavailable DIANA ., DR ACOSTA Admitting Unavailable DIANA ., DR ACOSTA Attending Unavailable [facility] Primary Care Unavailable WEST, DR GAMALIEL Fischer Consulting Unavailable DIANA ., DR ACOSTA Consulting Unavailable DIANA ., DR ACOSTA Admitting Unavailable DIANA ., DR ACOSTA Attending Unavailable [facility] Primary Care Unavailable DIANA ., DR ACOSTA Consulting Unavailable DIANA ., DR ACOSTA Admitting Unavailable DIANA ., DR ACOSTA Attending Unavailable [facility] Primary Care Unavailable DIANA ., DR ACOSTA Consulting Unavailable ZIEBER, DR FELECIA Chadwick Consulting Unavailable DIANA ., DR ACOSTA Admitting Unavailable DIANA ., DR ACOSTA Attending Unavailable [facility] Primary Care Unavailable DIANA ., DR ACOSTA Consulting Unavailable DIANA ., DR ACOSTA Admitting Unavailable DIANA ., DR ACOSTA Attending Unavailable [facility] Primary Care Unavailable DIANA ., DR ACOSTA Consulting Unavailable [facility] Primary Care Unavailable DIANA ., DR ACOSTA Attending Unavailable DIANA ., DR ACOSTA Admitting Unavailable DIANA ., DR ACOSTA Admitting Unavailable DIANA ., DR ACOSTA Attending Unavailable [facility] Primary Care Unavailable DIANA ., DR ACOSTA Admitting Unavailable DIANA ., DR ACOSTA Attending Unavailable [facility] Primary Care Unavailable KARASIK ., DR CAMACHO Consulting Unavailabl e DIANA ., DR ACOSTA Consulting Unavailable DIANA ., DR ACOSTA Procedure Practitioner Unavail able ORLANDO PRASAD Consulting Unavailable JAQCUES FLETCHER Consulting Unavailable DIANA ., DR ACOSTA Admitting Unavailable DIANA ., DR ACOSTA Attending Unavailable [facility] Primary Care Unavailable KARASIK ., DR CAMACHO Consulting Unavailabl e ZIEBER, DR FELECIA Chadwick Consulting Unavailable SADAF Wyatt Primary Care Provider MD Farhan Jean Attending Provider Poe, DO Oscar Emergency Provider [phone] Itzkowitz, DO Arden Admit Provider Itzkocece, DO Arden Attending Provider FRED Ventura Other Provider UnavailMD Juan Edwards Other Provider BRISA MoniqueC Ailyn Other Provider MD Jacques Valerio Other Provider MD Edith Urias Other Provider SADAF Wyatt Primary Care Provider [place], METAL TEMPERER-BC Elle E Emergency Provider BRANNON Valencia Emergency Provider Andie Wyatt PA-C Primary Care Provider [phone] CUONG ORTIZ Referring Unavailable ANDIE WYATT Primary [...] [BEES] Propensity to adverse reactions (disorder) 8 [facility] Repository (2 sources) Mold spore; Translations: [MOLD SPORES] Propensity to adverse reactions (disorder) 8 [facility] Repository (18 sources) Penicillins; Translations: [PENICILLINS] Propensity to adverse reactions to drug (disorder) [facility] (12 sources) Sulfonamides (Antibiotic); Translations: [SULFA (SULFONAMIDE ANTIBIOTICS)] Propensity to adverse reactions to drug (disorder) 8 [facility] Repository (1 source) Bee/Wasp/Ant venom; Translations: [Bee Stings] Propensity to adverse reactions to drug (disorder) [facility] Repository (1 source) mold extract; Translations: [Mold] Drug Allergy [facility] Repository (1 source) Sulfonamides (Antibiotic); Translations: [sulfa drugs] Propensity to adverse reactions to drug (disorder) [facility] Repository (4 sources) bee venom; Translations: [BEE VENOM] Propensity to adverse reactions to drug (disorder) 8 [facility] Repository (1 source) OTHER; Translations: [OTHER] Propensity to adverse reactions to food (disorder) 8 [facility] Repository (1 source) MOLDS & SMUTS; Translations: [MOLDS & SMUTS] Propensity to adverse reactions to drug (disorder) 8 [facility] Repository (4 sources) SULFA ANTIBIOTICS; Translations: [SULFA ANTIBIOTICS] Propensity to adverse reactions to drug (disorder) 8 [facility] Repository (1 source) Sulfonamides (Antibiotic) Drug allergy (disorder) 4 [facility] Repository (4 sources) Bee Venom Protein (Honey Bee); Translations: [BEE VENOM PROTEIN (HONEY BEE)] Propensity to adverse reactions to drug 2 [facility] (1 source) Penicillin Drug Allergy 2 [facility] Repository (1 source) Sulfacetamide Drug Allergy 2 [facility] Repository Medications Current Medications Medication Drug [...] mouth in the morning. 0 02/27/2023 Active [place] (No Known Home Meds) (2 sources) Start: 12-18-2022 [place] (No Known Home Meds) Active December 18, [...] (-1 ORAL) Take by mouth. 0 Active Dxmzisuu-Vao-Hx-FA (, w/Iron & FA,) 27-0.8 MG tablet (3 sources) Wfmrjaub-Ozl-Pr-FA (, w/Iron & FA,) 27-0.8 MG tablet 1 (one) time each day at the same time. 0 Active HK-Xnf-ID-Stanley-3 ( Gummies/DHA & FA) 0.4-32.5 MG chewable tablet (3 sources) Start: 07-09-2023 End: 08-08-2023 OA-Nms-QL-Stanley-3 ( Gummies/DHA & FA) 0.4-32.5 MG chewable [...] Onset: 11-30-2017 Unclassified (3 sources) M/C OTH HOSE STRIPPER 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 NA/UNS; Translations: [M/C OTH HOSE STRIPPER 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 NA/UNS] Onset: 07-05-2022 Unclassified (1 [...] 12-12-2021 Episodic Unclassified (1 source) M/C OTH HOSE STRIPPER 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 NA/UNS; Translations: [M/C OTH HOSE STRIPPER 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 NA/UNS] Onset: 07-02-2022 Results Test Name Value Interpretation Reference Range Facility AFP, SERUM, OPEN SPINA BIFID Aon 07-20-2023 AFP MOM 1.21 . [facility] AFP VALUE 70.2 ng/mL . [facility] COMMENT: Comment . [facility] Comment on above: Alma Chaudhary , Ph.D., [facility] Director References: Available Upon Request. Multiples Of Median Cutoffs For AFP Elevations Briscoe 2.5 Black 2.8 IDD 2.0 Twins 4.5 Abbreviation Definitions IDD - Insulin Dep Diabetes OSBR - Open Spina Bifida Risk For further inquiries contact [employer] [facility] [facility] at [phone]. This test was developed and its performance characteristics determined by [employer]. It has not been cleared or approved by the Food and Drug Administration. Performed at: [facility] [place], [place] [id number] Environmental Quality Analyst: Oz Harkins [facility], Phone: [phone] GEST. AGE ON COLLECTION DATE 20.4 . weeks [facility] GESTAT. AGE BASED ON LMP . [facility] Comment on above: Recalculations are n ot recommended when gestational dating by LMP and ultrasound are within 10 days. INSULIN DEP DIABETES No . [facility] INTERPRETATION Comment . [facility] Comment on above: Interpretation: Scre [...] Customer Services to discuss available options. The [employer] recommends amniocentesis be offered to women age 35 and older. [age] [facility] MULTIPLE GESTATION No . [facility] OSBR RISK 1 [place] 6301 . [facility] RACE . [facility] RESULTS Report . [facility] TEST RESULTS: Negative . [facility] WEIGHT 159 . lbs [facility] N N LMP [id number] 3 16 N 1 Y 159 N N N N White/ [facility] Urinalysis macro (dipstick) panel (U)on 07-18-2023 Bilirubin, UA Negative Negative - 4(70) +++ mg/dL [facility] Blood, UA Negative Negative - 50 Rakesh/mcL [facility] Clarity, UA Clear [facility] Color, UA Yellow [facility] Glucose, UA Negative Negative - 2000(110) ++++ mg/dL [facility] Interpretation and review of laboratory results Normal [facility] Ketones, UA Negative Negative - 160(16) ++++ mg/dL [facility] Leukocytes, UA Negative Negative - 500+++ Matti/mcL [facility] Nitrite, UA Negative Negative - Positive [facility] pH, UA 5.5 5 - 9 [facility] Protein, UA Negative Negative - 2000(20) ++++ mg/dL [facility] Spec Grav, UA 1.020 1 - 1.03 [facility] Urobilinogen, UA 1.0 0.2 - 12 mg/dL [facility] ABO/Rh Retypeon 12-19-2022 ABO/RH Recheck Result Positive Normal [facility] Comment on above: Result Comment: PERF ORMED BY: [facility] [address] [place] [address] PATHOLOGIST DOOR OPERATOR MALVIN MEDLEY M.D. Amphetamine Screen Ql (U)Ord ered By: Oscar Poe on 12-19-2022 Amphetamines Ql (U) Negative Negative [facility] Amylaseon 12-19-2022 Amylase [Catalytic activity/Vol] 35 U/L Normal 29-103 [facility] Comment on above: Performed By: #### C BC, CREAT, GLU, LYTES, AST, ETOH, BARB, LIPASE, CK, BUN ####[facility] Aspartate Amino Transferaseo n 12-19-2022 AST [Catalytic activity/Vol] 26 U/L Normal 13-39 [facility] Comment on above: Performed By: #### C BC, CREAT, GLU, LYTES, AST, ETOH, BARB, LIPASE, CK, BUN ####[place] [id number] [address] Automated erythrocytes count in urine sediment (number/area)Ordered By: Oscar Poe on 12-19-2022 RBC Auto (Urine sed) [#/Area] 5-9 [HPF] 0-4 [facility] Automated leukocytes count i n urine sediment (number/area)Ordered By: Oscar Poe on 12-19-2022 WBC Auto (Urine sed) [#/Area] 10-19 [HPF] 0-4 [facility] Barbiturates [Presence] in U rine by Screen methodOrdered By: Oscar Poe on 12-19-2022 Barbiturates Screen Ql (U) Negative Negative [facility] Benzodiazepines Screen Ql (U )Ordered By: Oscar Poe on 12-19-2022 Benzodiazepines Ql (U) Negative Negative [facility] Benzoylecgonine [Presence] i n Urine by Screen methodOrdered By: Oscar Poe on 12-19-2022 Benzoylecgonine Screen Ql (U) Negative Negative [facility] Bilirubin Test strip Ql (U)O rdered By: Oscar Poe on 12-19-2022 Bilirubin Ql (U) Negative Negative [facility] Blood Urea Nitrogenon 2022 Urea nitrogen [Mass/Vol] 21 mg/dL Normal 7-25 [facility] Comment on above: Performed By: #### C BC, CREAT, GLU, LYTES, AST, ETOH, BARB, LIPASE, CK, BUN ####[facility] cervical spine wo conon 0 12-19-2022 CT cervical spine wo con [facility] Main [place] [address] [place] [address] CT Scan Report Signed Patient: Zuleika Wyatt MR#: [id number] : 1990 Acct:[id number] Age/Sex: 32 / F ADM Date: 12/19/22 Loc: 4 Room: [address] [place] [address] Type: ADM INOo Attending Dr: Arden Orozco DO Copies to: DO Arden Jefferson DO Ordering Provider: Oscar Poe DO Date of Service: 12/18/22 CT/CT cervical spine wo con: f ([id number]) CT/CT head/brain wo con: f CT BRAIN [...] Pimentel Jr., Sammie12/19/2022 10:25 AM Dictation Location: [place] [address] Transcribed By: DONTE 12/19/22 1025 Dictated By: Rah Pimentel Jr, DO 12/19/22 1016 Signed By: 12/19/[address] [facility] [address] head/brain wo conon 12-19 CT head/brain wo con [facility] [place] [address] CT Scan Report Signed Patient: Zuleika Wyatt MR#: [id number] : 1990 Acct:[id number] Age/Sex: 32 / F ADM Date: 12/19/22 Loc: Room: [address] [place] [address] Type: DIS INOo Attending Dr: Arden Orozco [...] Pimentel Jr., D.O.12/19/2022 3:28 PM Dictation Location: [place] [address] Transcribed By: [facility] 12/19/22 1528 Dictated By: Rah Pimentel Jr, DO 12/19/22 1524 Signed By: 12/19/[address] [facility] [address] lumbar spine wo conon CT lumbar spine wo [place] [address] CT Scan Report Signed Patient: Zuleika Wyatt MR#: [id number] : 1990 Acct:[id number] Age/Sex: 32 / F ADM Date: 12/19/22 Loc: Room: [address] [place] [address] Type: ADM INOo Attending Dr: Arden Orozco DO Copies to: DO Arden Jefferson DO Ordering Provider: Oscar Poe DO Date of Service: 12/18/22 CT/CT thoracic spine wo con: f ([id number]) CT/CT lumbar spine wo con: f CT [...] narrowing or hypertrophy. The ribs within the hdvpf-ke-uidh appear intact. No paraspinal soft tissue abnormalities are present. The ascending aorta is mildly ectatic. The heart is not fully imaged though it is at least borderline prominent. There is no consolidation, pleural effusion or pneumothorax within the ndxng-rm-kgka. No lumbar compression fractures are identified. There [...] The intra-abdominal and pelvic structures within the irgti-ap-tnmp show no contributory findings. CT/CT thoracic spine wo con IMPRESSION: MILD THORACIC SCOLIOSIS. NO ACUTE BONY INJURY INVOLVING THE THORACIC OR LUMBAR SPINE. Impression dictated by: Adela Mahan M.D.12/19/2022 10:36 AM Dictation Location: [place] [address] Transcribed By: [facility] 12/19/22 1036 Dictated By: Adela Mahan MD 12/19/22 1026 Signed By: 12/19/22 1036 Normal [facility] Cannabinoids [Presence] in U rine by Screen methodOrdered By: Oscar Poe on 12-19-2022 Cannabinoids Screen Ql (U) Positive Negative [facility] Comment on above: These are unconfirme d results and should not be used for legal purposes. Drug Cut-Off Concentration: AMPH 1000 ng/mL SEEMA 200 ng/mL LAZ 200 ng/mL COCM 300 ng/mL OP 300 ng/mL PCP 25 ng/mL THC 20 ng/mL Color Auto (U)Ordered By: Fernando Poe on 12-19-2022 Color (U) Yellow Yellow [facility] Complete Blood Count Auto Di ffon 12-19-2022 Basophils (Bld) [#/Vol] 0.1 10*3/uL Normal 0.0-0.2 [facility] Comment on above: Result Comment: PERF ORMED BY: [facility] [address] [place] [address] PATHOLOGIST DOOR OPERATOR MALVIN MEDLEY M.D. Performed By: #### C BC, CREAT, GLU, LYTES, AST, ETOH, BARB, LIPASE, CK, BUN ####[address] Basophils/100 WBC (Bld) 0.7 % Normal . [facility] Comment on above: Performed By: #### C BC, CREAT, GLU, LYTES, AST, ETOH, BARB, LIPASE, CK, BUN ####[address] Eosinophils (Bld) [#/Vol] 0.0 10*3/uL Normal 0.0-0.45 [facility] Comment on above: Performed By: #### C BC, CREAT, GLU, LYTES, AST, ETOH, BARB, LIPASE, CK, BUN ####[address] Eosinophils/100 WBC (Bld) 0.2 % Normal . [facility] Comment on above: Performed By: #### C BC, CREAT, GLU, LYTES, AST, ETOH, BARB, LIPASE, CK, BUN ####[address] Erythrocyte distribution width (RBC) [Ratio] 14.4 % Normal 11.9-15.3 [facility] Comment on above: Performed By: #### C BC, CREAT, GLU, LYTES, AST, ETOH, BARB, LIPASE, CK, BUN ####[address] Hematocrit (Bld) [Volume fraction] 36.2 % Normal 34.0-46.4 [facility] Comment on above: Performed By: #### C BC, CREAT, GLU, LYTES, AST, ETOH, BARB, LIPASE, CK, BUN ####[address] Hemoglobin (Bld) [Mass/Vol] 11.9 g/dL Normal 11.8-15.4 [facility] Comment on above: Performed By: #### C BC, CREAT, GLU, LYTES, AST, ETOH, BARB, LIPASE, CK, BUN ####[address] Lymphocytes (Bld) [#/Vol] 2.2 10*3/uL Normal 1.00-4.8 [facility] Comment on above: Performed By: #### C BC, CREAT, GLU, LYTES, AST, ETOH, BARB, LIPASE, CK, BUN ####[address] Lymphocytes/100 WBC (Bld) 21.8 % Normal . [facility] Comment on above: Performed By: #### C BC, CREAT, GLU, LYTES, AST, ETOH, BARB, LIPASE, CK, BUN ####[address] MCH (RBC) [Entitic mass] 26.9 pg Normal 24.7-34.3 [facility] Comment on above: Performed By: #### C BC, CREAT, GLU, LYTES, AST, ETOH, BARB, LIPASE, CK, BUN ####[address] MCV (RBC) [Entitic vol] 82.1 fL Normal 80-100 [facility] Comment on above: Performed By: #### C BC, CREAT, GLU, LYTES, AST, ETOH, BARB, LIPASE, CK, BUN ####[address] Mean Corpuscular HGB Conc 32.8 g/dL Normal 32.0-35.0 [facility] Comment on above: Performed By: #### C BC, CREAT, GLU, LYTES, AST, ETOH, BARB, LIPASE, CK, BUN ####[address] Monocytes (Bld) [#/Vol] 0.8 10*3/uL Normal 0.0-0.8 [facility] Comment on above: Performed By: #### C BC, CREAT, GLU, LYTES, AST, ETOH, BARB, LIPASE, CK, BUN ####[address] Monocytes/100 WBC (Bld) 22.19 % High 0.00-20.00 [facility] Comment on above: Result Comment: For adults in ED, MDW > 20.0 may be associated with a higher risk of sepsis during the first 12 hrs of hospital admission Performed By: #### C BC, CREAT, GLU, LYTES, AST, ETOH, BARB, LIPASE, CK, BUN ####[address] Monocytes/100 WBC (Bld) 7.4 % Normal . [facility] Comment on above: Performed By: #### C BC, CREAT, GLU, LYTES, AST, ETOH, BARB, LIPASE, CK, BUN ####[address] Neutrophils (Bld) [#/Vol] 7.2 10*3/uL Normal 1.8-7.7 [facility] Comment on above: Performed By: #### C BC, CREAT, GLU, LYTES, AST, ETOH, BARB, LIPASE, CK, BUN ####[address] Neutrophils/100 WBC (Bld) 69.9 % Normal . [facility] Comment on above: Performed By: #### C BC, CREAT, GLU, LYTES, AST, ETOH, BARB, LIPASE, CK, BUN ####[address] NRBC% 0.1 /100{WBC} Normal 0-0.5 [facility] Comment on above: Performed By: #### C BC, CREAT, GLU, LYTES, AST, ETOH, BARB, LIPASE, CK, BUN ####[address] Platelet mean volume (Bld) [Entitic vol] 8.1 fL Normal 6.3-10.7 [facility] Comment on above: Performed By: #### C BC, CREAT, GLU, LYTES, AST, ETOH, BARB, LIPASE, CK, BUN ####[address] Platelets (Bld) [#/Vol] 223 10*3/uL Normal 150-450 [facility] Comment on above: Performed By: #### C BC, CREAT, GLU, LYTES, AST, ETOH, BARB, LIPASE, CK, BUN ####[address] RBC (Bld) [#/Vol] 4.42 10*6/uL Normal 3.60-5.00 [facility] Comment on above: Performed By: #### C BC, CREAT, GLU, LYTES, AST, ETOH, BARB, LIPASE, CK, BUN ####[address] WBC (Bld) [#/Vol] 10.3 10*3/uL Normal 3.8-11.6 [facility] Comment on above: Performed By: #### C BC, CREAT, GLU, LYTES, AST, ETOH, BARB, LIPASE, CK, BUN ####[address] Creatine Kinaseon 12-19-2022 CK [Catalytic activity/Vol] 50 U/L Normal 30-223 [facility] Comment on above: Result Comment: PERF ORMED BY: [facility] [address] [place] [address] PATHOLOGIST DOOR OPERATOR MALVIN MEDLEY M.D. Performed By: #### C BC, CREAT, GLU, LYTES, AST, ETOH, BARB, LIPASE, CK, BUN ####[address] Creatinineon 12-19-2022 Creatinine [Mass/Vol] 0.84 mg/dL Normal 0.60-1.20 [facility] Comment on above: Performed By: #### C BC, CREAT, GLU, LYTES, AST, ETOH, BARB, LIPASE, CK, BUN ####[facility] [place] [address] [place] Creatinine Clr Calc Pharmacy 98.76 [facility] Comment on above: Performed By: #### C BC, CREAT, GLU, LYTES, AST, ETOH, BARB, LIPASE, CK, BUN ####[facility] GFR/1.73 sq M.predicted MDRD (S/P/Bld) [Vol rate/Area] mL/min/{1.73_m2} [facility] Comment on above: Performed By: #### C BC, CREAT, GLU, LYTES, AST, ETOH, BARB, LIPASE, CK, BUN ####[facility] Dipstick and Microscopicon 0 12-19-2022 Appearance (U) Clear Normal Clear [facility] Comment on above: Order Comment: Name Collection Type:: Clean-Voided Midstream Performed By: #### U RDS, UHCG, CUU, ADDONUAPLUS #### [facility] [address] [place] [address] [place] Bacteria,Urine None Seen Normal None Seen [facility] Comment on above: Order Comment: Name Collection Type:: Clean-Voided Midstream Performed By: #### U RDS, UHCG, CUU, ADDONUAPLUS #### [facility] [address] [place] [address] [place] Bilirubin,Urine Negative Normal Negative [facility] Comment on above: Order Comment: Name Collection Type:: Clean-Voided Midstream Performed By: #### U RDS, UHCG, CUU, ADDONUAPLUS #### [facility] [address] [place] [address] [place] Color (U) Yellow Normal Yellow [facility] Comment on above: Order Comment: Name Collection Type:: Clean-Voided Midstream Performed By: #### U RDS, UHCG, CUU, ADDONUAPLUS #### [facility] [address] [place] [address] [place] Glucose Ql (U) Normal Normal Normal [facility] Comment on above: Order Comment: Name Collection Type:: Clean-Voided Midstream Performed By: #### U RDS, UHCG, CUU, ADDONUAPLUS #### [facility] [address] [place] [address] Hyaline Casts,Urine 0-8 Normal 0-8 [facility] Comment on above: Order Comment: Name Collection Type:: Clean-Voided Midstream Performed By: #### U RDS, UHCG, CUU, ADDONUAPLUS #### [facility] [address] [place] [address] Ketones Ql (U) 1+ High Negative [facility] Comment on above: Order Comment: Name Collection Type:: Clean-Voided Midstream Performed By: #### U RDS, UHCG, CUU, ADDONUAPLUS #### [facility] [address] [place] [address] Leukocyte esterase Test strip Ql (U) 2+ High Negative [facility] Comment on above: Order Comment: Name Collection Type:: Clean-Voided Midstream Performed By: #### U RDS, UHCG, CUU, ADDONUAPLUS #### [facility] [address] [place] [address] [place] Nitrite,Urine Negative Normal Negative [facility] Comment on above: Order Comment: Name Collection Type:: Clean-Voided Midstream Performed By: #### U RDS, UHCG, CUU, ADDONUAPLUS #### [facility] [address] [place] [address] [place] Occult Blood,Urine Negative Normal Negative [facility] Comment on above: Order Comment: Name Collection Type:: Clean-Voided Midstream Performed By: #### U RDS, UHCG, CUU, ADDONUAPLUS #### [facility] [address] [place] [address] [place] pH (U) 5.5 [pH] Normal 5.0-9.0 [facility] Comment on above: Order Comment: Name Collection Type:: Clean-Voided Midstream Performed By: #### U RDS, UHCG, CUU, ADDONUAPLUS #### [facility] [address] [place] [address] [place] Protein,Urine Negative Normal Negative [facility] Comment on above: Order Comment: Name Collection Type:: Clean-Voided Midstream Performed By: #### U RDS, UHCG, CUU, ADDONUAPLUS #### [facility] [address] [place] [address] RBC,Urine 5-9 High 0-4 [facility] Comment on above: Order Comment: Name Collection Type:: Clean-Voided Midstream Performed By: #### U RDS, UHCG, CUU, ADDONUAPLUS #### [address] Specificy [place],Urine 1.025 Normal 1.001-1.03 0 [facility] Comment on above: Order Comment: Name Collection Type:: Clean-Voided Midstream Performed By: #### U RDS, UHCG, CUU, ADDONUAPLUS #### [facility] [address] [place] [address] Squamous Epithelial Cell,Urine 3-4 High 0-2 [facility] Comment on above: Order Comment: Name Collection Type:: Clean-Voided Midstream Performed By: #### U RDS, UHCG, CUU, ADDONUAPLUS #### [facility] [address] [place] [address] Urobilinogen,Urine Normal Normal Normal [facility] Comment on above: Order Comment: Name Collection Type:: Clean-Voided Midstream Performed By: #### U RDS, UHCG, CUU, ADDONUAPLUS #### [facility] [address] [place] [address] [place] WBC,Urine 10-19 High 0-4 [facility] Comment on above: Order Comment: Name Collection Type:: Clean-Voided Midstream Performed By: #### U RDS, UHCG, CUU, ADDONUAPLUS #### [facility] [address] [place] [address] Drug Screen,Urineon 12-20-19 Amphetamine Screen,Urine Negative Normal Negative [facility] Comment on above: Performed By: #### U RDS, UHCG, CUU, ADDONUAPLUS #### [address] Barbiturate Screen,Urine Negative Normal Negative [facility] Comment on above: Performed By: #### U RDS, UHCG, CUU, ADDONUAPLUS #### [address] Benzodiazepines Screen,Urine Negative Normal Negative [facility] Comment on above: Performed By: #### U RDS, UHCG, CUU, ADDONUAPLUS #### [address] Cannabinoid Screen,Urine Positive High Negative [facility] Comment on above: Result Comment: Thes e are unconfirmed results and should not be used for legal purposes. Drug Cut-Off Concentration: AMPH 1000 ng/mL SEEMA 200 ng/mL LAZ 200 ng/mL COCM 300 ng/mL OP 300 ng/mL PCP 25 ng/mL THC 20 ng/mL PERFORMED BY: [place] [address] PATHOLOGIST DOOR OPERATOR MALVIN MEDLEY M.D. Performed By: #### U RDS, UHCG, CUU, ADDONUAPLUS #### [address] Cocaine Screen,Urine Negative Normal Negative [facility] Comment on above: Performed By: #### U RDS, UHCG, CUU, ADDONUAPLUS #### [address] Opiate Screen,Urine Negative Normal Negative [facility] Comment on above: Performed By: #### U RDS, UHCG, CUU, ADDONUAPLUS #### [address] Phencyclidine Screen,Urine Negative Normal Negative [facility] Comment on above: Performed By: #### U RDS, UHCG, CUU, ADDONUAPLUS #### [address] ECG 12 lead ECGon 12-19-2022 ECG 12 lead ECG [facility] Main [place] [id number] Electrocardiograph Report Signed Patient: Zuleika Wyatt MR#: [id number] : 1990 Acct:[id number] Age/Sex: 32 / F ADM Date: 12/19/22 Loc: Room: [address] [place] [address] Type: DIS INOo Attending Dr: Arden Orozco [...] ECGs available Confirmed by OSCAR POE DO ([id number]) on 12/19/2022 10:18:39 PM Referred By: Electronically Signed By:OSCAR POE DO Transcribed By: MUS Signed By Oscar Poe DO 12/197 Normal [facility] Electrolyteson 12-19-2022 Anion gap [Moles/Vol] 14.5 mmol/L Normal 6.0-15.0 [facility] Comment on above: Performed By: #### C BC, CREAT, GLU, LYTES, AST, ETOH, BARB, LIPASE, CK, BUN ####[facility] [id number] [place] [id number] [facility] Chloride [Moles/Vol] 105 mmol/L Normal 98-107 [facility] Comment on above: Performed By: #### C BC, CREAT, GLU, LYTES, AST, ETOH, BARB, LIPASE, CK, BUN ####[facility] [place] [address] [facility] CO2 [Moles/Vol] 20.0 mmol/L Low 21.0-31.0 [facility] Comment on above: Performed By: #### C BC, CREAT, GLU, LYTES, AST, ETOH, BARB, LIPASE, CK, BUN ####[place] [id number] [address] Potassium [Moles/Vol] 3.5 mmol/L Normal 3.5-5.1 [facility] Comment on above: Performed By: #### C BC, CREAT, GLU, LYTES, AST, ETOH, BARB, LIPASE, CK, BUN ####[address] Sodium [Moles/Vol] 136 mmol/L Normal 136-145 [facility] Comment on above: Performed By: #### C BC, CREAT, GLU, LYTES, AST, ETOH, BARB, LIPASE, CK, BUN ####[address] Ethyl Alcohol Profileon Ethanol [Mass/Vol] mg/dL Normal [facility] Comment on above: Performed By: #### C BC, CREAT, GLU, LYTES, AST, ETOH, BARB, LIPASE, CK, BUN ####[address] Percent Ethanol Not performed Normal [facility] Comment on above: Result Comment: PERF ORMED BY: [facility] [address] [place] [address] PATHOLOGIST DOOR OPERATOR MALVIN MEDLEY M.D. Performed By: #### C BC, CREAT, GLU, LYTES, AST, ETOH, BARB, LIPASE, CK, BUN ####[place] [id number] [facility] Glucoseon 12-19-2022 Glucose [Mass/Vol] 93 mg/dL Normal 70-100 [facility] Comment on above: Result Comment: [place] Glucose Reference Range is dependent on time and content of last meal. Glucose of more than 200 mg/dL in a nonstressed, ambulatory subject supports the diagnosis of Diabetes Mellitus. ADA recommended reference range Performed By: #### C BC, CREAT, GLU, LYTES, AST, ETOH, BARB, LIPASE, CK, BUN ####[facility] [id number] HCG ( test) [place].rapi d Ql (U)Ordered By: Oscar Poe on 12-19-2022 HCG ( test) Ql (U) Negative [facility] HCG,Qualitative Serumon 07-0 HCG,Qualitative Serum Negative Normal [facility] Comment on above: Result Comment: PERF ORMED BY: [place] [address] PATHOLOGIST DOOR OPERATOR MALVIN MEDLEY M.D. Performed By: #### H CGQUAL #### [facility] [address] HCG,Urineon 12-19-2022 Beta HCG ( test) Ql (U) Negative Normal [facility] Comment on above: Order Comment: Name Collection Type:: Clean-Voided Midstream Result Comment: PERF ORMED BY: [place] [address] PATHOLOGIST DOOR OPERATOR MALVIN MEDLEY M.D. Performed By: #### U RDS, UHCG, CUU, ADDONUAPLUS #### [address] Ketones Auto test strip (U) [Mass/Vol]Ordered By: Oscar Poe on 12-19-2022 Ketones (U) [Mass/Vol] 1+ Negative [facility] Laboratory - UrinalysisOrder ed By: Oscar Poe on 12-19-2022 Hyaline casts LM Ql (Urine sed) 0-8 [LPF] 0-8 [facility] Lipaseon 12-19-2022 Lipase [Catalytic activity/Vol] 29.0 U/L Normal 11.0-82.0 [facility] Comment on above: Result Comment: PERF ORMED BY: [facility] [address] [place] [address] PATHOLOGIST DOOR OPERATOR MALVIN MEDLEY M.D. Performed By: #### C BC, CREAT, GLU, LYTES, AST, ETOH, BARB, LIPASE, CK, BUN ####[facility] [id number] [place] [address] [facility] Nitrite Test strip Ql (U)Ord ered By: Oscar Poe on 12-19-2022 Nitrite Ql (U) Negative Negative [facility] Opiates [Presence] in Urine by Screen methodOrdered By: Oscar Poe on 12-19-2022 Opiates Screen Ql (U) Negative Negative [facility]ir [facility] Phencyclidine Screen Ql (U)O rdered By: Oscar Poe on 12-19-2022 Phencyclidine Ql (U) Negative Negative [facility] Protein Auto test strip (U) [Mass/Vol]Ordered By: Oscar Poe on 12-19-2022 Protein (U) [Mass/Vol] Negative Negative [facility] Specific gravity Auto test s trip (U) [Rel density]Ordered By: Oscar Poe on 12-19-2022 Specific gravity (U) [Rel density] 1.025 1.001-1.03 0 [facility] Squamous epithelial cells de tection in urine sediment by light microscopyOrdered By: Oscar Poe on 12-19-2022 Epithelial cells.squamous LM Ql (Urine sed) 3-4 [HPF] 0-2 [facility] Type and Screenon 12-19-2022 ABO and Rh group Nom (Bld) Blood group A Rh(D) positive Normal [facility] Comment on above: Result Comment: PERF ORMED BY: [facility] [address] [place] [address] PATHOLOGIST DOOR OPERATOR MALVIN MEDLEY M.D. Urine Cultureon 12-19-2022 Bacteria identified Cx Nom (U) >100,000 colonies/ml mixed bacterial skin contaminants 2 Days PERFORMED BY: [facility] [address] [facility] [place] [address] PATHOLOGIST DOOR OPERATOR MALVIN MEDLEY M.D. [facility] Comment on above: Performed By: #### U RDS, UHCG, CUU, ADDONUAPLUS ####[facility] [id number] [place] [address] [facility] Urine bacteria detection by automated methodOrdered By: Oscar Poe on 12-19-2022 Bacteria Auto Ql (U) None seen None Seen [facility] Urine clarity by refractomet ry automatedOrdered By: Oscar Poe on 12-19-2022 Clarity Refractometry automated (U) Clear Clear [facility] Urine culture routineOrdered By: Oscar Poe on 12-19-2022 Bacteria identified Cx Nom (U) 2 Days [facility] Urine glucose measurement by automated test strip (mass/volume)Ordered By: Oscar Poe on 12-19-2022 Glucose Auto test strip (U) [Mass/Vol] Normal mg/dL Normal [facility] Urine hemoglobin detection b y automated test stripOrdered By: Oscar Poe on 12-19-2022 Hemoglobin Auto test strip Ql (U) Negative Negative [facility] Urine leukocyte esterase det ection by automated test stripOrdered By: Oscar Poe on 12-19-2022 Leukocyte esterase Auto test strip Ql (U) 2+ Negative [facility] Urobilinogen Auto test strip (U) [Mass/Vol]Ordered By: Oscar Poe on 12-19-2022 Urobilinogen (U) [Mass/Vol] Normal mg/dL Normal [facility] XR knee BI 2Von 12-19-2022 XR knee BI 2V [facility] [place] [address] XRay Report Signed Patient: Zuleika Wyatt MR#: [id number] : 1990 Acct:[id number] Age/Sex: 32 / F ADM Date: 12/19/22 Loc: Room: [address] [place] [address] Type: ADM INOo Attending Dr: Arden Orozco DO Copies to: DO Arden Jefferson DO Ordering Provider: Oscar Poe DO Date of Service: 12/18/22 XR/XR knee BI 2V: f ([id number]) XR/XR chest 1V portable: TRAUMATIC INJURY ([id number]) XR/XR pelvis 1-2V: f ([id number]) XR/XR foot LT 2V: f CLINICAL DATA: [...] Adela Mahan M.D.12/19/2022 10:41 AM Dictation Location: [place] [address] Transcribed By: [facility] 12/19/22 1041 Dictated By: Adela Mahan MD 12/19/22 1036 Signed By: 12/19/22 1041 Normal [facility] pH Auto test strip (U)Ordere d By: Oscar Poe on 12-19-2022 pH (U) 5.5 [pH] 5.0-9.0 [facility] Amylase [Enzymatic activity/ volume] in Serum or PlasmaOrdered By: Oscar Poe on 12-18-2022 Amylase [Catalytic activity/Vol] 35 U/L 29-103 [facility] Aspartate aminotransferase [ Enzymatic activity/volume] in Serum or PlasmaOrdered By: Oscar Poe on 12-18-2022 AST [Catalytic activity/Vol] 26 U/L 13-39 [facility] Basophils Auto (Bld) [#/Vol] Ordered By: Oscar Poe on 12-18-2022 Basophils (Bld) [#/Vol] 0.1 10*3/uL 0.0-0.2 [facility] Basophils/100 WBC Auto (Bld) Ordered By: Oscar Poe on 12-18-2022 Basophils/100 WBC (Bld) 0.7 % . [facility] Carbon dioxide, total [Moles /volume] in Serum or PlasmaOrdered By: Oscar Poe on 12-18-2022 CO2 [Moles/Vol] 20.0 mmol/L 21.0-31.0 [facility] Chloride [Moles/volume] in S gwendolyn or PlasmaOrdered By: Oscar Poe on 12-18-2022 Chloride [Moles/Vol] 105 mmol/L 98-107 [facility] Choriogonadotropin.beta subu nit [Units/volume] in Serum or PlasmaOrdered By: Oscar Poe on 12-18-2022 HCG.beta subunit Qn Negative [facility] Creatine kinase [Enzymatic a ctivity/volume] in Serum or PlasmaOrdered By: Oscar Poe on 12-18-2022 CK [Catalytic activity/Vol] 50 U/L 30-223 [facility] Creatinine [Mass/volume] in Serum or PlasmaOrdered By: Oscar Poe on 12-18-2022 Creatinine [Mass/Vol] 0.84 mg/dL 0.60-1.20 [facility] Eosinophils Auto (Bld) [#/Vo l]Ordered By: Oscar Poe on 12-18-2022 Eosinophils (Bld) [#/Vol] 0.0 10*3/uL 0.0-0.45 [facility] Eosinophils/100 WBC Auto (Bl d)Ordered By: Oscar Poe on 12-18-2022 Eosinophils/100 WBC (Bld) 0.2 % . [facility] Erythrocyte distribution wid th Auto (RBC) [Ratio]Ordered By: Oscar Poe on 12-18-2022 Erythrocyte distribution width (RBC) [Ratio] 14.4 % 11.9-15.3 [facility] Ethanol [Mass/volume] in Ser um or PlasmaOrdered By: Oscar Poe on 12-18-2022 Ethanol [Mass/Vol] mg/dL [facility] Ethanol [Mass/Vol] TNP [facility] Comment on above: Test not performed Glucose [Mass/volume] in Ser um or PlasmaOrdered By: Oscar Poe on 12-18-2022 Glucose [Mass/Vol] 93 mg/dL 70-100 [facility] Comment on above: ADA recommended refe rence rangeRandom Glucose Reference Range is dependent on time and content of last meal. Glucose of more than 200 mg/dL in a nonstressed, ambulatory subject supports the diagnosis of Diabetes Mellitus. Hematocrit Auto (Bld) [Volum e fraction]Ordered By: Oscar Poe on 12-18-2022 Hematocrit (Bld) [Volume fraction] 36.2 % 34.0-46.4 [facility] Hemoglobin [Mass/volume] in BloodOrdered By: Oscar Poe on 12-18-2022 Hemoglobin (Bld) [Mass/Vol] 11.9 g/dL 11.8-15.4 [facility] Leukocytes [#/volume] correc osmel for nucleated erythrocytes in Blood by Automated counOrdered By: Oscar Poe on 12-18-2022 WBC corrected for nucl RBC Auto (Bld) [#/Vol] 10.3 10*3/uL 3.8-11.6 [facility] Lipase [Enzymatic activity/v olume] in Serum or PlasmaOrdered By: Oscar Poe on 12-18-2022 Lipase [Catalytic activity/Vol] 29.0 U/L 11.0-82.0 [facility] Lymphocytes Auto (Bld) [#/Vo l]Ordered By: Oscar Poe on 12-18-2022 Lymphocytes (Bld) [#/Vol] 2.2 10*3/uL 1.00-4.8 [facility] Lymphocytes/100 WBC Auto (Bl d)Ordered By: Oscar Poe on 12-18-2022 Lymphocytes/100 WBC (Bld) 21.8 % . [facility] MCH Auto (RBC) [Entitic mass ]Ordered By: Oscar Poe on 12-18-2022 MCH (RBC) [Entitic mass] 26.9 pg 24.7-34.3 [facility] MCHC Auto (RBC) [Mass/Vol]Or dered By: Oscar Poe on 12-18-2022 MCHC (RBC) [Mass/Vol] 32.8 g/dL 32.0-35.0 [facility] MCV Auto (RBC) [Entitic vol] Ordered By: Oscar Poe on 12-18-2022 MCV (RBC) [Entitic vol] 82.1 fL 80-100 [facility] Monocyte distribution width [Entitic volume] in Blood by AutomatedOrdered By: Oscar Poe on 12-18-2022 Monocyte distribution width Auto (Bld) [Entitic vol] 22.19 % 0.00-20.00 [facility] Comment on above: For adults in ED, MD W > 20.0 may be associated with a higher risk of sepsis during the first 12 hrs of hospital admission Monocytes Auto (Bld) [#/Vol] Ordered By: Oscar Poe on 12-18-2022 Monocytes (Bld) [#/Vol] 0.8 10*3/uL 0.0-0.8 [facility] Monocytes/100 WBC Auto (Bld) Ordered By: Oscar Poe on 12-18-2022 Monocytes/100 WBC (Bld) 7.4 % . [facility] Neutrophils Auto (Bld) [#/Vo l]Ordered By: Oscar Poe on 12-18-2022 Neutrophils (Bld) [#/Vol] 7.2 10*3/uL 1.8-7.7 [facility] Neutrophils/100 WBC Auto (Bl d)Ordered By: Oscar Poe on 12-18-2022 Neutrophils/100 WBC (Bld) 69.9 % . [facility] No Panel InformationOrdered By: Oscar Poe on 12-18-2022 Estimated GFR (CKD-EPI) > 60.0 mL/Min [facility] Creatinine Clearance (Chem 98.76 [facility] Nucleated erythrocytes [Pres ence] in Blood by Automated countOrdered By: Oscar Poe on 12-18-2022 Nucleated RBC Auto Ql (Bld) 0.1 /100{WBC} 0-0.5 [facility] Platelet mean volume Auto (B ld) [Entitic vol]Ordered By: Oscar Poe on 12-18-2022 Platelet mean volume (Bld) [Entitic vol] 8.1 fL 6.3-10.7 [facility] Platelets Auto (Bld) [#/Vol] Ordered By: Oscar Poe on 12-18-2022 Platelets (Bld) [#/Vol] 223 10*3/uL 150-450 [facility] Potassium [Moles/volume] in Serum or PlasmaOrdered By: Oscar Poe on 12-18-2022 Potassium [Moles/Vol] 3.5 mmol/L 3.5-5.1 [facility] RBC Auto (Bld) [#/Vol]Ordere d By: Oscar Poe on 12-18-2022 RBC (Bld) [#/Vol] 4.42 10*6/uL 3.60-5.00 [facility] Serum or plasma anion gap de terminationOrdered By: Oscar Poe on 12-18-2022 Anion gap [Moles/Vol] 14.5 mmol/L 6.0-15.0 [facility] Sodium [Moles/volume] in Ser um or PlasmaOrdered By: Oscar Poe on 12-18-2022 Sodium [Moles/Vol] 136 mmol/L 136-145 [facility] Urea nitrogen [Mass/volume] in Serum or PlasmaOrdered By: Oscar Poe on 12-18-2022 Urea nitrogen [Mass/Vol] 21 mg/dL 7-25 [facility] WBC Auto (Bld) [#/Vol]Ordere d By: Oscar Poe on 12-18-2022 WBC (Bld) [#/Vol] 10.3 10*3/uL 3.8-11.6 [facility] PRBC LEUKOREDUCEDon 07-14-19 23 ABO and Rh group Nom (Bld) Cross Match Result Compatible Unit Blood Type A Pos Unit Number [id number] Status Information Released Specimen Exp Date Product ID Red Blood Cells Product Code [id number] Cross Match Result Compatible Unit Blood Type A Pos Unit Number [id number] Status Information Transfused Product ID Red Blood Cells Product Code [id number] Normal [facility] Comment on above: Performed By: #### R UBIGG #### [facility] [address] [place] [address] Dr. Juan Antonio Ibarra CBC AUTO DIFFon 07-07-2022 BASO # 0.0 103/ul Normal 0.0-0.1 [facility] Comment on above: Performed By: #### A 1C #### [facility] [address] [place] [address] Dr. Juan Antonio Ibarra Basophils/100 WBC (Bld) 0.3 % Normal 0.2-2.0 [facility] Comment on above: Performed By: #### A 1C #### [facility] [address] [place] [address] Dr. Juan Antonio Ibarra EO # 0.1 103/ul Normal 0.0-0.7 [facility] Comment on above: Performed By: #### A 1C #### [facility] [address] [place] [address] Dr. Juan Antonio Ibarra Eosinophils/100 WBC (Bld) 0.9 % Normal 0.9-7.0 [facility] Comment on above: Performed By: #### A 1C #### [facility] [address] [place] [address] Dr. Juan Antonio Ibarra Erythrocyte distribution width (RBC) [Ratio] 14.5 % Normal 11.0-15.0 [facility] Comment on above: Performed By: #### A 1C #### [facility] [address] [place] [address] Dr. Juan Antonio Ibarra Hematocrit (Bld) [Volume fraction] 22.5 % Critically low 36.0-48.0 [facility] Comment on above: Performed By: #### A 1C #### [facility] [address] [place] [address] Dr. Juan Antonio Ibarra Hemoglobin (Bld) [Mass/Vol] 7.9 g/dL Critically low 12.0-16.0 [facility] Comment on above: Performed By: #### A 1C #### [facility] [address] [place] [address] Dr. Juan Antonio Ibarra IG # 0.10 10e3/ul Critically high 0.00-0.03 [facility] Comment on above: Performed By: #### A 1C #### [facility] [address] [place] [address] Dr. Juan Antonio Ibarra IG % 0.9 % Critically high 0.0-0.5 [facility] Comment on above: Performed By: #### A 1C #### [facility] [address] [place] [address] Dr. Juan Antonio Ibarra LYMPH # 1.6 103/ul Normal 1.2-3.8 [facility] Comment on above: Performed By: #### A 1C #### [facility] [address] [place] [address] Dr. Juan Antonio Ibarra Lymphocytes/100 WBC (Bld) 14.0 % Critically low 20.5-60.0 [facility] Comment on above: Performed By: #### A 1C #### [facility] [address] [place] [address] Dr. Juan Antonio Ibarra MANUAL DIFF REQ NO Normal [facility] Comment on above: Performed By: #### A 1C #### [facility] [address] [place] [address] Dr. Juan Antonio Ibarra MCH (RBC) [Entitic mass] 26.4 pg Critically low 26.7-34.0 [facility] Comment on above: Performed By: #### A 1C #### [facility] [address] [place] [address] Dr. Juan Antonio Ibarra MCHC (RBC) [Mass/Vol] 35.1 g/dL Normal 29.9-35.2 [facility] Comment on above: Performed By: #### A 1C #### [facility] [address] [place] [address] Dr. Juan Antonio Ibarra MCV (RBC) [Entitic vol] 75.3 fL Critically low 81.0-99.0 [facility] Comment on above: Performed By: #### A 1C #### [facility] [address] [place] [address] Dr. Juan Antonio Ibarra MONO # 0.7 103/ul Normal 0.3-0.8 [facility] Comment on above: Performed By: #### A 1C #### [facility] [address] [place] [address] Dr. Juan Antonio Ibarra Monocytes/100 WBC (Bld) 6.2 % Normal 1.7-12.0 [facility] Comment on above: Performed By: #### A 1C #### [facility] [address] [address] [address] Juan Antonio Ibarra NEUT # 9.1 103/ul Critically high 1.4-6.5 [facility] Comment on above: Performed By: #### A 1C #### [facility] [address] [place] [address] Dr. Juan Antonio Ibarra Neutrophils/100 WBC (Bld) 77.7 % Critically high 43.0-75.0 [facility] Comment on above: Performed By: #### A 1C #### [facility] [address] [place] [address] Dr. Juan Antonio Ibarra Platelet mean volume (Bld) [Entitic vol] 9.2 fL Critically low 9.5-13.5 [facility] Comment on above: Performed By: #### A 1C #### [facility] [address] [place] [address] Dr. Juan Antonio Ibarra PLT 143 103/ul Critically low 150-450 [facility] Comment on above: Performed By: #### A 1C #### [facility] [address] [place] [address] Dr. Juan Antonio Ibarra RBC 2.99 106/ul Critically low 4.20-5.40 [facility] Comment on above: Performed By: #### A 1C #### [facility] [address] [place] [address] Dr. Juan Antonio Ibarra WBC 11.7 103/ul Critically high 4.0-11.0 [facility] Comment on above: Performed By: #### A 1C #### [facility] [address] [place] [address] Dr. Juan Antonio Ibarra CBC AUTO DIFFon 07-06-2022 BASO # 0.0 103/ul Normal 0.0-0.1 [facility] Comment on above: Performed By: #### A 1C #### [facility] [address] [place] [address] Dr. Juan Antonio Ibarra Basophils/100 WBC (Bld) 0.3 % Normal 0.2-2.0 [facility] Comment on above: Performed By: #### A 1C #### [facility] [address] [place] [address] Dr. Juan Antonio Ibarra EO # 0.1 103/ul Normal 0.0-0.7 [facility] Comment on above: Performed By: #### A 1C #### [facility] [address] [place] [address] Dr. Juan Antonio Ibarra Eosinophils/100 WBC (Bld) 0.8 % Critically low 0.9-7.0 [facility] Comment on above: Performed By: #### A 1C #### [facility] [address] [place] [address] Dr. Juan Antonio Ibarra Erythrocyte distribution width (RBC) [Ratio] 14.3 % Normal 11.0-15.0 [facility] Comment on above: Performed By: #### A 1C #### [facility] [address] [place] [address] Dr. Juan Antonio Ibarra Hematocrit (Bld) [Volume fraction] 23.0 % Critically low 36.0-48.0 [facility] Comment on above: Performed By: #### A 1C #### [facility] [address] [place] [address] Dr. Juan Antonio Ibarra Hemoglobin (Bld) [Mass/Vol] 7.5 g/dL Critically low 12.0-16.0 [facility] Comment on above: Performed By: #### A 1C #### [facility] [address] [place] [address] Dr. Juan Antonio Ibarra IG # 0.07 10e3/ul Critically high 0.00-0.03 [facility] Comment on above: Performed By: #### A 1C #### [facility] [address] [place] [address] Dr. Juan Antonio Ibarra IG % 0.6 % Critically high 0.0-0.5 [facility] Comment on above: Performed By: #### A 1C #### [facility] [address] [place] [address] Dr. Juan Antonio Ibarra LYMPH # 2.1 103/ul Normal 1.2-3.8 [facility] Comment on above: Performed By: #### A 1C #### [facility] [address] [place] [address] Dr. Juan Antonio Ibarra Lymphocytes/100 WBC (Bld) 18.8 % Critically low 20.5-60.0 [facility] Comment on above: Performed By: #### A 1C #### [facility] [address] [place] [address] Dr. Juan Antonio Ibarra MANUAL DIFF REQ NO Normal [facility] Comment on above: Performed By: #### A 1C #### [facility] [address] [place] [address] Dr. Juan Antonio Ibarra MCH (RBC) [Entitic mass] 26.0 pg Critically low 26.7-34.0 [facility] Comment on above: Performed By: #### A 1C #### [facility] [address] [place] [address] Dr. Juan Antonio Ibarra MCHC (RBC) [Mass/Vol] 32.6 g/dL Normal 29.9-35.2 [facility] Comment on above: Performed By: #### A 1C #### [facility] [address] [place] [address] Dr. Juan Antonio Ibarra MCV (RBC) [Entitic vol] 79.9 fL Critically low 81.0-99.0 [facility] Comment on above: Performed By: #### A 1C #### [facility] [address] [place] [address] Dr. Juan Antonio Ibarra MONO # 0.7 103/ul Normal 0.3-0.8 [facility] Comment on above: Performed By: #### A 1C #### [facility] [address] [place] [address] Dr. Juan Antonio Ibarra Monocytes/100 WBC (Bld) 6.6 % Normal 1.7-12.0 [facility] Comment on above: Performed By: #### A 1C #### [facility] [address] [place] [address] Dr. Juan Antonio Ibarra NEUT # 8.2 103/ul Critically high 1.4-6.5 [facility] Comment on above: Performed By: #### A 1C #### [facility] [address] [place] [address] Dr. Juan Antonio Ibarra Neutrophils/100 WBC (Bld) 72.9 % Normal 43.0-75.0 [facility] Comment on above: Performed By: #### A 1C #### [facility] [address] [place] [address] Dr. Juan Antonio Ibarra Platelet mean volume (Bld) [Entitic vol] 9.8 fL Normal 9.5-13.5 [facility] Comment on above: Performed By: #### A 1C #### [facility] [address] [place] [address] Dr. Juan Antonio Ibarra PLT 151 103/ul Normal 150-450 [facility] Comment on above: Performed By: #### A 1C #### [facility] [address] [place] [address] Dr. Juan Antonio Ibarra RBC 2.88 106/ul Critically low 4.20-5.40 [facility] Comment on above: Performed By: #### A 1C #### [facility] [address] [place] [address] Dr. Juan Antonio Ibarra WBC 11.3 103/ul Critically high 4.0-11.0 [facility] Comment on above: Performed By: #### A 1C #### [facility] [address] [place] [address] Dr. Juan Antonio Ibarra CBC AUTO DIFFon 07-05-2022 BASO # 0.0 103/ul Normal 0.0-0.1 [facility] Comment on above: Performed By: #### R PRQ #### [facility] [address] [place] [address] Dr. Juan Antonio Ibarra Basophils/100 WBC (Bld) 0.2 % Normal 0.2-2.0 [facility] Comment on above: Performed By: #### R PRQ #### [facility] [address] [place] [address] Dr. Juan Antonio Ibarra EO # 0.0 103/ul Normal 0.0-0.7 [facility] Comment on above: Performed By: #### R PRQ #### [facility] [address] [address] [address] Juan Antonio Ibarra Eosinophils/100 WBC (Bld) 0.4 % Critically low 0.9-7.0 [facility] Comment on above: Performed By: #### R PRQ #### [facility] [address] [place] [address] Dr. Juan Antonio Ibarra Erythrocyte distribution width (RBC) [Ratio] 14.2 % Normal 11.0-15.0 [facility] Comment on above: Performed By: #### R PRQ #### [facility] [address] [place] [address] Dr. Juan Antonio Ibarra Hematocrit (Bld) [Volume fraction] 31.0 % Critically low 36.0-48.0 [facility] Comment on above: Performed By: #### R PRQ #### [facility] [address] [place] [address] Dr. Juan Antonio Ibarra Hemoglobin (Bld) [Mass/Vol] 10.1 g/dL Critically low 12.0-16.0 [facility] Comment on above: Performed By: #### R PRQ #### [facility] [address] [place] [address] Dr. Juan Antonio Ibarra IG # 0.10 10e3/ul Critically high 0.00-0.03 [facility] Comment on above: Performed By: #### R PRQ #### [facility] [address] [place] [address] Dr. Juan Antonio Ibarra IG % 1.1 % Critically high 0.0-0.5 [facility] Comment on above: Performed By: #### R PRQ #### [facility] [address] [place] [address] Dr. Juan Antonio Ibarra LYMPH # 1.6 103/ul Normal 1.2-3.8 [facility] Comment on above: Performed By: #### R PRQ #### [facility] [address] [place] [address] Dr. Juan Antonio Ibarra Lymphocytes/100 WBC (Bld) 17.5 % Critically low 20.5-60.0 [facility] Comment on above: Performed By: #### R PRQ #### [facility] [address] [place] [address] Dr. Juan Antonio Ibarra MANUAL DIFF REQ NO Normal [facility] Comment on above: Performed By: #### R PRQ #### [facility] [address] [place] [address] Dr. Juan Antonio Ibarra MCH (RBC) [Entitic mass] 25.8 pg Critically low 26.7-34.0 [facility] Comment on above: Performed By: #### R PRQ #### [facility] [address] [place] [address] Dr. Juan Antonio Ibarra MCHC (RBC) [Mass/Vol] 32.6 g/dL Normal 29.9-35.2 [facility] Comment on above: Performed By: #### R PRQ #### [facility] [address] [place] [address] Dr. Juan Antonio Ibarra MCV (RBC) [Entitic vol] 79.3 fL Critically low 81.0-99.0 [facility] Comment on above: Performed By: #### R PRQ #### [facility] [address] [place] [address] Dr. Juan Antonio Ibarra MONO # 0.7 103/ul Normal 0.3-0.8 [facility] Comment on above: Performed By: #### R PRQ #### [facility] [address] [place] [address] Dr. Juan Antonio Ibarra Monocytes/100 WBC (Bld) 8.1 % Normal 1.7-12.0 [facility] Comment on above: Performed By: #### R PRQ #### [facility] [address] [place] [address] Dr. Juan Antonio Ibarra NEUT # 6.7 103/ul Critically high 1.4-6.5 [facility] Comment on above: Performed By: #### R PRQ #### [facility] [address] [place] [address] Dr. Juan Antonio Ibarra Neutrophils/100 WBC (Bld) 72.7 % Normal 43.0-75.0 [facility] Comment on above: Performed By: #### R PRQ #### [facility] [address] [place] [address] Dr. Juan Antonio Ibarra Platelet mean volume (Bld) [Entitic vol] 10.1 fL Normal 9.5-13.5 [facility] Comment on above: Performed By: #### R PRQ #### [facility] [address] [place] [address] Dr. Juan Antonio Ibarra PLT 202 103/ul Normal 150-450 [facility] Comment on above: Performed By: #### R PRQ #### [facility] [address] [place] [address] Dr. Juan Antonio Ibarra RBC 3.91 106/ul Critically low 4.20-5.40 [facility] Comment on above: Performed By: #### R PRQ #### [facility] [address] [place] [address] Dr. Juan Antonio Ibarra WBC 9.2 103/ul Normal 4.0-11.0 [facility] Comment on above: Performed By: #### R PRQ #### [facility] [address] [place] [address] Dr. Juan Antonio Ibarra DRUG SCREEN RAPID (URINE)on 07-05-2022 AMP Negative Normal NEGATIVE [facility] Comment on above: Performed By: #### A 1C #### [facility] [address] [place] [address] Dr. Juan Antonio Ibarra BAR Negative Normal NEGATIVE [facility] Comment on above: Performed By: #### A 1C #### [facility] [address] [place] [address] Dr. Juan Antonio Ibarra BUP Negative Normal NEGATIVE [facility] Comment on above: Performed By: #### A 1C #### [facility] [address] [place] [address] Dr. Juan Antonio Ibarra BZO Negative Normal NEGATIVE [facility] Comment on above: Performed By: #### A 1C #### [facility] [address] [place] [address] Dr. Juan Antonio Ibarra PARAM Negative Normal NEGATIVE [facility] Comment on above: Performed By: #### A 1C #### [facility] [address] [place] [address] Dr. Juan Antonio Ibarra CUT-OFFS SEE BELOW Normal [facility] Comment on above: Result Comment: AMP (Amphetamine): [...] 1C #### [facility] [address] [place] [address] Dr. Juan Antonio Ibarra DRUG CUT HEADER DRUG CLASS TEST SYST EM CUT-OFF CONCENTRATIONS ARE FOLLOWS: Normal [facility] Comment on above: Performed By: #### A 1C #### [facility] [address] [place] [address] Dr. Juan Antonio Ibarra mAMP Negative Normal NEGATIVE [facility] Comment on above: Performed By: #### A 1C #### [facility] [address] [place] [address] Dr. Juan Antonio Ibarra MTD Negative Normal NEGATIVE [facility] Comment on above: Performed By: #### A 1C #### [facility] [address] [place] [address] Dr. Juan Antonio Ibarra OPI Negative Normal NEGATIVE [facility] Comment on above: Performed By: #### A 1C #### [facility] [address] [place] [address] Dr. Juan Antonio Ibarra OXY Negative Normal NEGATIVE [facility] Comment on above: Performed By: #### A 1C #### [facility] [address] [place] [address] Dr. Juan Antonio Ibarra PCP Negative Normal NEGATIVE [facility] Comment on above: Performed By: #### A 1C #### [facility] [address] [address] [address] Juan Antonio Ibarra PPX Negative Normal NEGATIVE [facility] Comment on above: Performed By: #### A 1C #### [facility] [address] [address] [address] Juan Antonio Ibarra TCA Negative Normal NEGATIVE [facility] Comment on above: Performed By: #### A 1C #### [facility] [address] [address] [address] Juan Antonio Ibarra THC Negative Normal NEGATIVE [facility] Comment on above: Performed By: #### A 1C #### [facility] [address] [address] [address] Juan Antonio Ibarra TYPE AND SCREENon 07-05-2022 TYPE AND SCREEN Negative Normal [facility] Comment on above: Performed By: #### T NS #### [facility] [address] [address] [address] Juan Antonio Ibarra US PREG BIOPHY [...] RCX #### [facility] [address] [place] [address] Dr. Juan Antonio Ibarra UA (CLEAN/CATCH) HOSE STRIPPER/MICRO I F IND.on 06-16-2022 Bilirubin Ql (U) Negative Normal NEGATIVE [facility] Comment on above: Performed By: #### U MICRO, UACSIND #### [facility] [address] [place] [address] Dr. Juan Antonio Ibarra Clarity (U) CLEAR Normal CLEAR [facility] Comment on above: Performed By: #### U MICRO, UACSIND #### [facility] [address] [place] [address] Dr. Juan Antonio Ibarra Color (U) LT. YELLOW Normal YELLOW [facility] Comment on above: Performed By: #### U MICRO, UACSIND #### [facility] [address] [address] [address] Juan Antonio Ibarra Glucose Ql (U) Negative Normal NEGATIVE [facility] Comment on above: Performed By: #### U MICRO, UACSIND #### [facility] [address] [address] [address] Juan Antonio Ibarra Hemoglobin Ql (U) Negative Normal NEGATIVE [facility] Comment on above: Performed By: #### U MICRO, UACSIND #### [facility] [address] [address] [address] Juan Antonio Ibarra Ketones Ql (U) Negative Normal NEGATIVE [facility] Comment on above: Performed By: #### U MICRO, UACSIND #### [facility] [address] [place] [address] Dr. Juan Antonio Ibarra LEUKOCYTES MODERATE Abnormal NEGATIVE [facility] Comment on above: Performed By: #### U MICRO, UACSIND #### [facility] [address] [place] [address] Dr. Juan Antonio Ibarra Nitrite Ql (U) Negative Normal NEGATIVE [facility] Comment on above: Performed By: #### U MICRO, UACSIND #### [facility] [address] [place] [address] Dr. Juan Antonio Ibarra pH (U) 6.0 [pH] Normal 5-9 [facility] Comment on above: Performed By: #### U MICRO, UACSIND #### [facility] [address] [place] [address] Dr. Juan Antonio Ibarra SPEC GRAVITY 1.020 Normal 1.005-<=1. 025 [facility] Comment on above: Performed By: #### U MICRO, UACSIND #### [facility] [address] [place] [address] Dr. Juan Antonio Ibarra UA PROTEIN Negative Normal NEGATIVE/ TRACE [facility] Comment on above: Performed By: #### U MICRO, UACSIND #### [facility] [address] [address] [address] Juan Antonio Ibarra UR MICRO IND INDICATED Normal [facility] Comment on above: Performed By: #### U MICRO, UACSIND #### [facility] [address] [place] [address] Dr. Juan Antonio Ibarra Urobilinogen Qn (U) 1.0 {Pamela'U}/dL Normal 0.2 - 1. 0 [facility] Comment on above: Performed By: #### U MICRO, UACSIND #### [facility] [address] [place] [address] Dr. Juan Antonio Ibarra URINE MICROSCOPIC ONLYon BACTERIA SMALL Abnormal NONE SEEN [facility] Comment on above: Performed By: #### U MICRO, UACSIND #### [facility] [address] [place] [address] Dr. Juan Antonio Ibarra Bacteria identified Cx Nom (U) INDICATED Normal [facility] Comment on above: Performed By: #### U MICRO, UACSIND #### [facility] [address] [place] [address] Dr. Juan Antonio Ibarra CAST NONE SEEN Normal NONE SEEN [facility] Comment on above: Performed By: #### U MICRO, UACSIND #### [facility] [address] [place] [address] Dr. Juan Antonio Ibarra Crystals LM Nom (Urine sed) NONE SEEN Normal NONE SEEN [facility] Comment on above: Performed By: #### U MICRO, UACSIND #### [facility] [address] [place] [address] Dr. Juan Antonio Ibarra Epithelial cells LM Ql (Urine sed) RARE Normal NONE SEEN /RARE [facility] Comment on above: Performed By: #### U MICRO, UACSIND #### [facility] [address] [place] [address] Dr. Juan Antonio Ibarra MUCOUS NONE SEEN Normal NONE SEEN [facility] Comment on above: Performed By: #### U MICRO, UACSIND #### [facility] [address] [place] [address] Dr. Juan Antonio Ibarra RBC NONE SEEN Abnormal 0-2 [facility] Comment on above: Performed By: #### U MICRO, UACSIND #### [facility] [address] [place], [place] [address] Dr. Juan Antonio Ibarra WBC 2-5 Abnormal NONE SEEN [facility] Comment on above: Performed By: #### U MICRO, UACSIND #### [facility] [address] [place], [place] [address] Dr. Juan Antonio Ibarra GROUP B STREP CULTUREon 05-18 S. agalactiae Ag Ql (Unsp spec) Culture Observations: NEGATIVE FOR GROUP B STREPTOCOCCUS. Normal [facility] Comment on above: Performed By: #### G BSCX #### [facility] [address] [place], [place] [address] Dr. Juan Antonio Ibarra US PREG BIOPHY [...] CRUMP Date: 2022-06-14 16:10 Normal [facility] US PREG BIOPHY W NON STRESSo n [...] by: FELECIA GOLDMAN Date: 2022-06-07 16:42 Normal [facility] US PREG BIOPHY W NON STRESSo n [...] GOLDMAN Date: 2022-06-04 17:11 Normal [facility] US PREG BIOPHY W NON STRESS EXAMINATION: [...] GOLDMAN Date: 2022-06-04 16:23 Normal [facility] US PREG BIOPHY W NON STRESSo n [...] CRUMP Date: 2022-05-31 18:39 Normal [facility] US PREG BIOPHY W NON STRESSo n [...] PRQ #### [facility] [address] [place] [address] Dr. Juan Antonio Ibarra HEMOGRAM AND PLATELon 2021 Hematocrit (Bld) [Volume fraction] 33.5 % Critically low 36.0-48.0 [facility] Comment on above: Performed By: #### A 1C #### [facility] [address] [place] [address] Dr. Juan Antonio Ibarra Hemoglobin (Bld) [Mass/Vol] 10.7 g/dL Critically low 12.0-16.0 [facility] Comment on above: Performed By: #### A 1C #### [facility] [address] [place] [address] Dr. Juan Antonio Ibarra MCH (RBC) [Entitic mass] 29.3 pg Normal 26.7-34.0 [facility] Comment on above: Performed By: #### A 1C #### [facility] [address] [place] [address] Dr. Juan Antonio Ibarra MCHC (RBC) [Mass/Vol] 31.9 g/dL Normal 29.9-35.2 [facility] Comment on above: Performed By: #### A 1C #### [facility] [address] [place] [address] Dr. Juan Antonio Ibarra MCV (RBC) [Entitic vol] 91.8 fL Normal 81.0-99.0 [facility] Comment on above: Performed By: #### A 1C #### [facility] [facility] [address] [place] [address] Dr. Juan Antonio Ibarra PLT 179 103/ul Normal 150-450 [facility] Comment on above: Performed By: #### A 1C #### [facility] [address] [place] [address] Dr. Juan Antonio Ibarra RBC 3.65 106/ul Critically low 4.20-5.40 [facility] Comment on above: Performed By: #### A 1C #### [facility] [address] [place] [address] Dr. Juan Antonio Ibarra WBC 9.9 103/ul Normal 4.0-11.0 [facility] Comment on above: Performed By: #### A 1C #### [facility] [address] [place] [address] Dr. Juan Antonio Ibarra US PREG REEVAL [...] by: FELECIA GOLDMAN Date: 2022-03-20 20:55 Normal [facility] US PREG ANATOMY SINGLEon US PREG ANATOMY [...] GOLDMAN Date: 2022-02-22 16:46 Normal [facility] Coding Summaryon 02-14-2022 Coding Summary HTMLBase 64 NwfyoxofLZp3aNn+PGhlYWQ+PE 3HSOVyX36jxFOczM2JM1rJPX8W RJAXCPMGMX5AAK4daHF1DLnmD5 VybiAv LtmbwUNwHV60NCw0UEA1qTciBY jzbW4sgWFyY5w6ZqGfHC96cY04 PNfuQYNbWsW6CbAzxzulhDRh Z4tdUsSuuYNjKdf+PHRhYmxlIH jlOOAhWKeqNQDiJgNfiRpcSN3d Wl6kSDNeARZheAxkoOCaHyWl v8atIUDqQKyrHN4ewXpuR5PijX Q2VNKxq5p4Sa92nPU+PHRkIHN0 jPauHMciz167GoRwt1zdUSZ9 yCQqAXnuLYJ1X75ug9Z7GWLeOX OhVXF7tNI4mX9erHdxjcclU3Yn mZOdNzP4ZIX1sWVedH2lvThk nwslgT0aPbl+E62WMX0LOJRTWL 5YCyy7I3HoJkazfPI+JR17ORQg BO47vIBznJYkv0iihAz0QqYg NCKrZYZ1fRraEFcve8KhAOZnC0 6fgHUwd4E2TDVgiCtlpWHuFjXd tAQ0dW4aABlbiibfx5lobbal Bdxas2hrxx57nF97E29vFUkoUG PbQDR8GZOeXIFpaQivqy9ttD3k Ii8+BUudl0tpl5cacSe6CaRm MCKqlyZghLupKZN9f1MrZu85G1 JjvGcjk8PeBib0sl15fCKrj8I8 aLN2PImyZXVocA0zURfxDzJ1 JCUjJoBmwS62wQBzFWnkTr3uyB rmbKenOK5kNQPglcmuMVFdsX1h ZWGlzMOioHtjAM7tRQGckvqx v287OhNuSMX1AOTewGHoK7JuhP 5yWxTdXYYoTYClJ6FnkWNwCFyj Q611NDdxZpF8PLGyamXwI4Az IOJpgZagBbC9n0Z3Fp1Yx4Lfct hyDZL9AKdbXIH9AeByHsNnQuV1 X0OjZbh3IVJmtSxhSA5qZ9Ev AUWzfzejzsmctUN3UXPsDCEmjE 66qWXiPJebNm3mg4H6g545KMZj VLJndG39Bg4qmXiaWEKsfZJH dH7tndejs3eeyuenGsKeFHCpHK h6ARe8QJFqmLhjGdToIWV0CrC4 SFM7iDGynM2vdVtidcxytD3q Oyc+A16cpV3yOFK6DIA0rzvrQF QoipWeQU37HH63U8UwSiuywCGr bGU+HIQhoeLrvRegQU6vDcIg i7xsk4NmJKjyX1AtNNZsNOurFm g5IQVhVQI8cQP6eS5gQJTtZXwv u0K4mGA8Z4SvmzKrua0gu3mg SSMmCFinJ21aqRXjb9C2WXGlfD A4NAPhxCesRdXnjM67Eux+PGNv cTqxh9XcKeinr3vdf1gnoMh2 TiDgKLVcxqYvfBnpTCM0h4GqZh 52G14fGMfhJQKnVDXdEMWaWPVw zNjbmb9qqC1dIp8+PGNvbCB3 kNA0eR9vVWIfQaM8HKcdZ833Op BadDSiZyvid1snn6xonPf8ZhPl UDWiavTrmHduQZT0s6BlXn81 X42uIRusHYSlYTDcGZXeTNEovY kkyn8kbO1zXb4+ML1ew5uigc20 tO04cOY+NAYiENK3bUvhIJyt REOwbG8uHJqyOdT0RKLdWlPbcF 05hGIeIHduKe3ysXigwYmjOS0w IUTrnhaiw052VpXyh5foWHRa sICvCUxbQXB2O96dl6L0MKUcVC SlSPT3rBG1lZ3uvExiqfwrhVKz qIxzhkPffQocCHorPVxnV316 IHRvcDsnPlBhdGllbnQgTmFtZT w4S9HeAag1HIEnrIbwWY5wzPQe ODisYk6xoFyqxTnqXJ3oFVMm wnmey730ZvVum8zdBIWgnGZgQY lnRKW9F66ls5Z8HVYtGRVjAJK6 kLZ9uV8iyUuvutkruMEjmYua rnQabRecOQcvPAsoO684MONgeI wpUgMrrhOiIMAkiZI1OM34QM59 nGRlg5P6kCM0Q8PjKTPaiywh fouxbJH7ABJbDTJpdY80Xt9tmJ biOw0xHLVmDBZ2ZEQmvNMpO3Zf vM3wApMoPOPwORQvQ9YdcFUn QYwxY661JYgcOyT1EVXoniNcO8 KlRQKnjBibLaM9w2R3Ke5LG2V0 II93YO31dMFfd4S8xBL7Q6Wt UKHanzsdlncvvMC3OGQqXLDhjW 83Fr0mxQxyJz4qUPHnQIG8MGGx xHWgT3QbbA5hAqUtQMUuIAPl Q0MslKTgEDrlI066WWkgXhF0YI GqrzEpM8LfETFpySdbGbY5g7T8 Je2GIHb9DB20OS69lPFgw0K4 pLG8O8SqXMTknavfxwyxoZY3ZJ ZdKCXxoH89Dh4cnGhzSi3vWSVb PEW4ZFKhuZZzM0ItqP2gToJl LIDbRYZaQ8QehPAyURpqT615CR idNyC8MVSfreAnO4OwJOFljMos PuY5m3A4Oo9UMXLaBQ74LZX4 mOJ7NK95BA83T4QcOxyoiYEpvV U+PHRhYmxlIHdpZHRoPScxMDAl UiJnvYhrRN2nEu4dZAAfEPGk dOikgEXaVkByj4kaFZXjLIzhXT 7zdVjaB8DdwSX8OHRjz1p1Jn53 O52yX4DpbIE+QYWdlPO6lBC0 yF1fPiBlPzW0DFgiV253ViPhfE KfJvpkw7csv5gbcLy4SuP3XJCk eqUrlIgwJSX0u5XxJf64A21e IHdpZHRoPSIxNSUiIHZhbGlnbj 1ncD5xVf7+TPMmqVB7gXZ9lY0c WgOxXaB2AFidW786RjQgeRWd Nkygs4wms3bhgQh1EuUuZIYkqa MsdTcxQOD0a9HxTl11Y9JnmDzz x0AeFqt5mo75jAEyx3S6yJO2 Q2FyHFEmqmxakPVwqYrgWC0iJM DcvxzqPRSrzX0fEMAcO7p3KgHq FvI2KYmgG5BstmN2GKPloROt URfeGAJ1E12aw2V9TQMwRFNsGT H4iOD4jS5nzIayzowofMSwzGjo ydCdtJznQUxyAYrvQ896JUKa bTsqIIRpbW3qOGUzjSNqxFfvUA 4wNTBpbjsnPlNURUlOLCBWSVJH RJ4DWJFNMOH6L0JdNge9LRHw eOsiGT0ydGKyNAwpHr3rkSyciJ drMP1fYPYvrolnFUMjoR9gWYRj cIDbxHdcPU8rHDDfjxwqp064 ZjJgOGG2HFOcbZRbB3FlqS2cJy IsQLExVZPsX0VeiSSrRFffE973 EDcuZaA1LBLrgqPoA2NmKGDm aUpsHyR5u0B0Ri2eHX4xWK4hPU kdLS04VI24iTAsl3C4rXT1R9Ya UMIojrdnrxbwaEY4CYJhFSMl zQ70pEVdZQhmXm5kr2G8j131KD HfDXNsyV96Yi5foZrlAGLcrMYG vV8pcmoqx8esgknbMmMcXBWr SLn2GHq8QHJezXxjClJbJVP0Iv I1BRY0oNVhlW5weJdbpvxdsD4c Oyc+MfxzUTUeltP3P3LiEca7 NMDfwGlpUK7icNFoSWnvHf3ydX ajoJwtHK0wYMIoawmwOCIfoL7b HLNouTGfbCuxJP9dYYSfkviy k084YuIiPFF2GYWmyPGlC5OntK 0lNoHlZJNlSQIxQ6FzgJDjJWsb P708ADwgOwF8TYQrrbMtO4Ij FKSetFrjIjN4g0R7Mt3ISG3ROT E9U5YqZed3KGMzrQevND9xaCFj UEqxDr3vtZhdjMneIL4aAGDx erpxQHLvvU9fBPTuoRTcfVheAP 5mFKOdmxifo698HoJcKIP6LPSu yCQjU3FrnG6aKvEqJGXtVVNl E3YidDZkVAiuT908XEhaApH9DR NyyxWjM8SrEGFitOrvKdJ8e2L2 Gn0NRHhxrYX+VB50da24P2Vc NrtuKjs1DTHdAML1pDR0oA5yNL FqCDgdb6R3uOU1U7WleiPjlr4x d2zgSPAtHDaoZ18uaIEeo4Y4 TCHrbIF0POFltIheWjXtwU48Iq c+LVVuaYqmv8JjKkaoi0zij9ds jNk5TaSgSSPpuvRbzZaaVML4 e1VjZa33R44aCCmuYVBkPOEyVQ FpQZXgzSqisc3uxN3hWb2+PGNv gSG2iER5oE1tNhErRbX2UMzp R550FgNpvNWrQhtxd4ksb3vxvJ f3IyTxZLVsvgYwmXfdUXQ5r0Sm Cp52P4EaiKuny2PyObl4hr73 qQVqh8D5wQM6Y9XhTKLwrvfgzM ApkVcdQH7mQEYdvzrlROJxvQ4k REDmT2b0YtThVyU1HRhxN2Ah tgJ6QYImcUBsVGBtjEDKlG8irq rhk4wxgtrvBoGpPGDsDJp5QKp2 YUYdyThwBpYyUJD4JoN5CEH4 kNHdiC4dqYojgoywnB0kHsj+UG o8b6ktsSRgWL0ekAK4HX63XU03 gYQhc3J0mUU8P5CrPREgjhft vsxvwHY3PQCpYYJdhW49Gd8jfS gjTq0uHMMeWIH5ZFIeeRLsQ6Bv jX1xQtXzUJVwYRRqZ4JpwTIa GMzoH600OQlaWsU3EOQrlpUdC0 OmPDIliRomCsJ0n0V0Gf5QKE27 PG60YR83rXKrx4U2bFO2N9Xw KFBazvjnsfngvJU5GKDiSPVuqX 39Oa8npIyfXd6iDNHeJEI7QHPf yTWaQ0LjhZ0gNyXbALEcTIAn D9MwbZCxKKgiG942JAikVuU2JO ZlnpOwS3VaJWRrkMrmRxT6j3B5 Fv1PUi30XQ70KF97nXGjn5B1 zDG0E3HaAXRynmzcfgvnfXU4KY MbQJRwuB43Tu0ylFiaNa4eUESp MPG3VWYjwXGrP5NfnQ7eGmFv GVXaGFJzL2QlfDCdGUzaP292SJ zfVhR1XTUakaZhM5HlYQGhdDmr BxY7c7K6Ni0JEQaekef6U3Zm PjwvdHI+FF43UZMwFK64mZHtmY Xne2nbsJb9StWrPSOzSJC6zPvt HPraa7KgKAKvL25lqGNgd5Z6 IGN (more content not included)... [place] [facility] Summary HTMLBase 64 GkzstlrqGNq7sLp+PGhlYWQ+PE 4UIOMwZ11ftECpyI2TR0dITD7S OIYAUNQRBM7ZNV2lnSE3JZuzI2 VybiAv GlktqCIhSH83SLx9WGX9rChfBG xddK1pmCNkC6s2OyDeOU34lG30 VTfbPVZdDiE4NdNynjcwlXUp T6imDuQngOLtOaa+PHRhYmxlIH weFHJaIYekYLGhJoVnaSitOX3g Uv7iAIFvHCYqdRamsLCqInVr z4azIPApKAduJV6ywWfbL0InhP I8MCLat8f1Gw69iSM+PHRkIHN0 xMleCHpwr081OvXre2duUOX9 gCJfLDtrMID5C39ad3G1AKTlDM JzZNY8cRB1rP9zaRmsqkchK4Qx lKVgRyA9LFO7sVHzwJ0vyOob riowxP5sGzv+E02XJS3EPLBWOY 9ERvh0L8LbRzuzcSI+LO88MNVh GO61mHOiiMHus1jxuLk6OnIw QDNdLKT3fNugAUyrr3GpLTUvB5 2lmPBlx7Q7YGHgpHqelZRhUgYm hOV1wU6dNScovqyys1lenuqj Qkyac4mpqi01bA26N33vYMnfBZ DhCLD0EBCqQALxcBojgj5hyP7e Ii8+DFmuv5xss4exrLk5HnDl IIPeotZidNwiKFO5r4HqKc20L7 BeuGkbq7HiRkp9pz85qNNbp0G0 pKY6IUyiNCSejE6eDDctNkT9 GSUoRyHtaU71iTNlCOypFb4hcX wndCntZY3pGKJbrnuxZWWdiK1v VFNcmWAorDqkXW2aNJZrortt w969EmZfUKA8GMQgpZZwT7DmhK 3dFkFvHJReLHUqD1AkvDBmFDpz Z939GBmyHvZ2EYKsprXkW7Qf WHIcwMgxPsH2m9O6Yw5Qy4Pkmq jlCBF0VNptQAY2BfJxRlQqGpE8 R7KwZug5DDNnuEqkJA6tK6Yu YPSspupswxyoqND0NXYhFNQmaW 11pGYlEJwzFf9yh6F3q977EDJp WDKaqR57Ew9mwNrlCEGeaEZX nY6ipmlco3hyhqvnDrTkHWJpZM t8NHn9IMPpnLydRxZbKWV2YeW2 RCJ4fPEfsT7klHiildvjlC9q Oyc+A36tzE1mJKP9TFJ6toxyOF WaucXpFC86AH87A8HzWjohwXSx bGU+VAVmblWyuBvvTZ6iZsXj m6dgu7ZjIXnuQ3ZkPEDdWOdoFg d6FUMvMNX2fKT5tJ2gRXCzNNil s5L3hFU7R7ZrmzAhnd8po7nr HGLxDWpeG39wwVUdx0Y9MTJaiH R3AOGfaHmsJdNipH92Idy+PGNv iWihq8EmXdcrk9xzs3akiOy3 UzScANJwyfOghNxlTLA9q0TbLu 28K77sJTnxYHDeYQZzMXGnSVQq gElhsk6pxA0uHa6+PGNvbCB3 sMQ6dO9pFGAmOnY1YPmhU227Oi YsoASaEqoqv7wbp6dewXw8AkWx OQRqgjUmbPorDRO9k9CeDs73 Y30jJOgsEQVfOTMnCOEbRNCwaM vcvb1jwK4xFw1+GU9ne4gkyd97 tW17jML+GRZhFGA0dIayPHrt PLNtsJ1dJDgvXkZ8ZIYmSlKgaF 08pGVwLHgmOg2asZrseHvuDS6y QAJgobacz860RwBfq6wyKAQv fSCmPWhxNSB6G42da1E2ARTdAN DpSEW5cCC0iR4znTpiqoiciXKt zOfhesVvuIqwOIsoTXsjE126 IHRvcDsnPlBhdGllbnQgTmFtZT i5A7UoIoi3HFYduVxnSA2hfIBe IGroEn9uhHyeiOqtXF2zMXDm tpoiq055FoGhc3maDKLhzVWfKY gyRLO9R85vk3R3AUPxYSAsIUZ4 vZY5bO6irWdthcqghBAosHbo kvWueAxgWZgiZUdbD009AZXpbX pfQhXwgrFhCRJiyYG0KB46CB24 uYRej4B8wRT4F8WiCJKdlgwm ohebaVE8XDXdUFXxhG50Fd4qhE joKe0cNHGiXKG4AADgsXKxW8Xv qI0mCrAkSNIdVGXcS8WqeGCp RDyrP656ALryPqE6BBZuvlTuE0 ZjZUOdlKwkMqT7x4W4Nt1WX6P7 HB13JF46wDKtd4T6gTJ7K3Od DUTtqurtzalcqJE8VSJcZFNhaE 44Xe1aoAbhLj1nDUWwOWR7MGFn sNXdO2RdyI5oGnCgEGTzVNRo W7CoyVAxSAktK028CUwwSzS3PH ZqziAdZ8UzSLJvePmdYyF3y8T7 Zz4EHGo4XB47SH22hUJbh2D2 cYP5T1BiVXVozzwiaectkAV9CP RiPFPsfU24Wp6baUjqVj4cOXUf DFG0CAZbzTBxQ3ZayN5rCcYu UMNgSPNkY9NoqGDhNOwkE637XM wiPmE5KRPdpwKfX6EvMTHauAsu VsC2e2X3Tx1IRNSvAJ62CFH5 aRV7NY75PU64B3HjIiyefDDtrA U+PHRhYmxlIHdpZHRoPScxMDAl OmNmiXjtCD5qSi6kQWMbGBVx bFmkoLKyPgZxu7gsVXBlMTesIY 9yePgaE1UdbUK0UVRbs4s8Xo08 P23vS0VmbTT+BNWmfST4lAY3 sB7bFiGtAbZ5BKtuM323VlRmeM VuEbeeq5bgd2vyvVx8OrC2SGFz xuQggFaiGAG7d9PlJc58P14e IHdpZHRoPSIxNSUiIHZhbGlnbj 1wgD9vRl7+HNOgsFV6oCG8aZ5e GcOaFhX9RKulI946HeMupOQa Ifeqk3rth0vcnVl6ShHqHKIdtq UkvUqwCON2v3GpWc82I7XqaWhu m0NvYbv8oy94cIQuw9T2qWS5 M1RuDJBhcnvpcDYmxOhwZE5oKS LpczqbANDeaS9gOBBaG7r1IxRc GnP5KTbnO7ImqbZ7JLKriQNy DTliQDQ5Q05pu2P1KCNoWQVpNE G0qMD3jS1ejAefeeecyQXolNbu cnByyLjhBWlpPFywF547WULt pAwiIULcqY1eJWWdyVHxhNqvUB 4wNTBpbjsnPlNURUlOLCBWSVJH IA0FGCRSSSO0J7TlTea4PDRd pFtqSP8cuGFpIOgnVq8mmOkkjM crJC1oYCVrmfnjTVJvxE8jJOBd eFUmiUfjZC9vPUFrxelgh718 NaQiBPJ8GLZvcULdH1ZptH2aVw CfUJGkQIFrV8DywAUyVMdhV473 TLvfIgL7YIDdudBkJ0SrRBRc cEshHwE9e0Y1Fh5rQO3nHV3wMU uyED44OS56qKKqt3F5pUG3P2Xl NFGhpkwzgbvxcNS9CYQiVHFu jA15mGKlWQfuHq9yf7J9e322NP NrKOFaqK37Rr3pgIodXAQxnREU vB4akwokk5fqjwuvZbWpHLLa UAq1ENm8YHQskGruBkQiXMQ1Dy A9VAZ6lKCjrF1zvJinecxmoI3r Oyc+HtomOGDsrgC1W3CaGde5 HEWabRzmWF3koVUdKRtrFw5ivS ptgZbtHK5bFRAaqvzoMYRdeY9m VJGnlTXloQcmXN8iAAPxdpgr o057PgDmLJC4FGLgqZCeJ3MleN 9tNcNwWUZfSYYdR6EsxGFcEDuc V515QNiqOmN5FQLaewNrG4Dh OGLpmBtmLfU1m2W6Ic6JHJ3DEI H0E3VcZvj4GPUifQbwLV1wqPEq HXcbIq6ihVenaIblEF9eKRMf ylqpTTBlsJ3wTVLlqWUezNowLR 6gCOMjzojro165WzOpGIF0BHNc gEGoN5CdxZ8nDkYxRYBnORTm S6WbtFTrYPobM744UJwyVhV4NB KcrxXsI5JoTCLxsBvwBkL3y2A1 Hk9GiKEqR7JuM9p1Y3OmXrcx dHI+GH77HRKrTS14hHLgiERpo9 wisJc0LjEpTAMmHYX0yDzwHWtm z1TsINIdF90tiLMoq8Y8FLQb mCkuyRUnMvRspZS9rZ0cNKqhnu kyg1naoipoInjiu1lzmi56yQ38 Y54vMCbgNDHyBQFiXPHmOEUj fDlxsw2beW6wDs4+XMYenFQ9xV O1iP1cHjBqQdZ3HBaqB511YuLq zYUtBgzdv9xsf6woxEk6CyXc SETokqJivKknYCC9d2ZaEe35N0 9sIHdpZHRoPSIyMCUiIHZhbGln gk4tdI0vLs8+IR7nd6wwjf68 jX42lKQ+DMXqDZQ9tZcqBFupWZ QnvE3mCOgeQfK7PMOoXmKoeD95 qZOuLHsrYc3fkAuvwHvsQG0c PIJrmwgrg540CtGjp1nyAPRrxO YcOThrNWQ0X97tr2A0EGUiODAr XGS8fCR3rB7ttVgjzqhnaHUd nLkmgaZyqQhjIBbvMPdfO139RD TohQxnPvFkvIUiU2zmzpQTPT2o OjwvdGQ+JPSsGND0qJrwZJqh XFKnrH5wKADeT2w0RbYdGhA0UM hpR7AhsiF6WHSwhMWqGDUicMDU rU0starsn5mdfmurBlUjUMRc RPe9ZQu7HWCpyTrwJeWjVJN0Hq D2AWP2tXAniE9exJczxmwaaD2w Oyc+RklOOjwvdGQ+PHRkIHN0 mRxfKUinFNYvpY6sUTPiE1f2Ew NhWrC1TOyqU9NmbrG7WSZegYUm OIDwtOPCdS9gcydqq8ytqfwe IlFxTVBsGAh7NZj2BZKzdKsqXv QjOVQ0JdL4TAQ4lTMlcC1swLyn otzjjF3hEdh+TVJOOjwvdGQ+ SOTfFRX1uPlkJYfpMSEdcL9cVA TiE4g1NnYnSuN5ERqtC2DxvbC9 JCZzgYXhVBTflWDKbW7yvhgl a6taqbynJfMaIQMzSFp7YOl2LM AuhMnmYmGoQGL2IrG7EUN6tJEz nL5foCcofvquyT3gBqc+UGF5 BRG9HO60WA55R6PcKniseJRguN U+PHRhYmxlIHdpZHRoPScxMDAl BqAtqXnoXY8hKf2hFAIuFUCb bGx (more content not included)... Normal [facility] CHLAMYDIA/GONOCOCCUS RAINER ( AB/URINE/PAPon 02-09-2022 Chlamydia trachomatis, RAINER Negative Normal Negative [facility] Comment on above: Performed By: #### R PRQ #### [facility] [address] [address] [address] Juan Antonio Ibarra Neisseria gonorrhoeae, RAINER Negative Normal Negative [facility] Comment on above: Performed By: #### R PRQ #### [facility] [address] [address] [address] Juan Antonio Ibarra AFP MATERNAL FOR SPINA BIFID Aon 02-08-2022 AFP MoM 1.41 Normal [facility] Comment on above: Performed By: #### A FPMAT #### [facility] [address] [address] [address] Juan Antonio Ibarra AFP Value 66.8 ng/mL Normal [facility] Comment on above: Performed By: #### A FPMAT #### [facility] [address] [address] [address] Juan Antonio Ibarra AFP, Serum for Spina Bifida Report Normal [facility] Comment on above: Performed By: #### A FPMAT #### [facility] [address] [address] [address] Juan Antonio Ibarra Comment Comment Normal [facility] Comment on above: Result Comment: Melchor Chaudhary, Ph.D., [facility] Director . References: Available Upon Request. . Multiples Of Median Cutoffs For AFP Elevations Briscoe 2.5 Black 2.8 IDD 2.0 Twins 4.5 Abbreviation Definitions IDD - Insulin Dep Diabetes OSBR - Open Spina Bifida Risk . For further inquiries contact [facility] at [phone]. . This test was developed and its performance characteristics determined by [employer]. It has not been cleared or approved by the Food and Drug Administration. Performed By: #### A FPMAT #### [facility] [address] [address] [address] Juan Antonio Ren Age Collection Date 18.3 weeks Normal [facility] Comment on above: Performed By: #### A FPMAT #### [facility] [address] [address] [address] Juan Antonio Ibarra Gestat, Age Based on LMP [facility] Comment on above: Result Comment: Reca lculations are not recommended when gestational dating by LMP and ultrasound are within 10 days. Performed By: #### A FPMAT #### [facility] [address] [place] [address] Dr. Juan Antonio Ibarra Insulin Dep Diabetes No Normal [facility] Comment on above: Performed By: #### A FPMAT #### [facility] [address] [address] [address] Juan Antonio Ibarra Interpretation Comment Normal [facility] Comment on above: Result Comment: Inte rpretation: [...] Customer Services to discuss available options. The [employer] recommends amniocentesis be offered to women age 35 and older. Performed By: #### A FPMAT #### [facility] [address] [address] [address] Juan Antonio Ibarra [age] [facility] Comment on above: Performed By: #### A FPMAT #### [facility] [address] [place] [address] Dr. Juan Antonio Ibarra Multiple Gestation No Normal [facility] Comment on above: Performed By: #### A FPMAT #### [facility] [address] [address] [address] Juan Antonio Ibarra OSBR Risk 1 IN 3501 Normal [facility] Comment on above: Performed By: #### A FPMAT #### [facility] [address] [address] [address] Juan Antonio Ibarra PDF . Normal [facility] Comment on above: Performed By: #### A FPMAT #### [facility] [address] [address] [address] Juan Antonio Ibarra Race Normal [facility] Comment on above: Performed By: #### A FPMAT #### [facility] [address] [place] [address] Dr. Juan Antonio Ibarra Test Results: Negative [facility] Comment on above: Performed By: #### A FPMAT #### [facility] [address] [place] [address] Dr. Juan Antonio Ibarra VAGINITIS/VAGINOSIS DNA PROB Abdirashid 02-08-2022 Bettye species Negative Normal Negative [facility] Comment on above: Performed By: #### A 1C #### [facility] [address] [place] [address] Dr. Juan Antonio Ibarra Gardnerella vaginalis Negative Normal Negative [facility] Comment on above: Performed By: #### A 1C #### [facility] [address] [place] [address] Dr. Juan Antonio Ibarra Trichomonas vaginalis Negative Normal Negative [facility] Comment on above: Performed By: #### A 1C #### [facility] [address] [place] [address] Dr. Juan Antonio Ibarra ABO and Rh group post transf usion reaction Nom (Bld)Ordered By: Eleazar Hess on 02-06-2022 Microscopic observation Gram stain Nom (Unsp spec) [facility] ED Clinical Summaryon 2021 ED Clinical Summary [facility] Emergency Department [address] [place] [address] [id number] ED Clinical Summary PERSON INFORMATION Name: ZULEIKA WYATT Age: 31 Years Sex: FEMALE : 1990 MRN: Acct#: Visit Reason: Rash; Medical problem - minor; POSS BODY INFECTION Arrival: 01/29/2022 20:27:46 Discharge: 01/29/2022 21:17:00 LOS: 000 00:50 Check In: 01/29/2022 20:27:46 Checkout:01/29/2022 21:17:00 Address: [address] [place] [address] [address] [facility] [address] PCP: Andie Stoddard PROVIDER INFORMATION Provider Role [...] follow-up with their family doctor or their BOTTLE FEEDER doctor. To this they agreed.. Health Status [...] Current Fr (more content not included)... Normal [facility] ED Note - Physicianon 2021 ED [...] follow-up with their family doctor or their BOTTLE FEEDER doctor. To this they agreed.. Health Status [...] Once. Impression and Plan Diagnosis Sebaceous cyst ([id number] L72.3, Discharge, Medical) Plan Condition: Unchanged. Disposition: Discharged: time 01/29/2022 20:59:00. Prescriptions: Launch prescripti (more content not included)... Normal [facility] ED Patient Summaryon 022 ED Patient Summary [facility] - Emergency Department [address] [place] [address] PATIENT DISCHARGE INSTRUCTIONS Patient Information Name: ZULEIKA WYATT Age: 31 Years Date of : 1990 Reason For Visit: Rash; Medical problem - minor; POSS BODY INFECTION Arrival Time: 01/29/2022 20:27:46 Primary Care Physician: Andie Stoddard Attending Physician: Johnson Wright DO Comment: Visit Diagnosis: Diagnoses This Visit Medical problem - minor ([id number]) Rash ([id number]) Sebaceous cyst (L72.3) The Pharmacy at [facility] is open Saturday through Saturday from [...] alcohol and/or drug addiction problems; contact the [facility] 07/01 Crisis Hotline -Text 4HMLY uu [phone]. If you received any narcotics, sedation, or [...] documents With: Address: When: Andie Wyatt [address] [id number] Business (1) Within 3 to 5 days Comments: home warm compresses clindamycin for antibioitic see your ob, or Dr Wyatt, for recheck apt ----at some point, this might have to be removed; this is not cancer, but a retention cyst of fat material; Return if very red and tender, or fever, vomiting worse You are welcomed to return anytime. Call Dr Wright, ext [phone], if any question patric WRIGHT< ER PHYSICIAN< Heike Jones Octavio Medication Information: The exam and treatment you received today in the [facility] Emergency Department were for an urgent problem and are not intended as complete care. It is important for you to follow up with a doctor, nurse practitioner, or physician?s real estate executive assistant for ongoing care. If your symptoms [...] so we can reach you if necessary. [facility] has provided you with a complete list of medications post discharge. Please inform your office administrator/provider of your visit and for further instruction [...] Epidermoid Cyst (more content not included)... Normal [facility] TYPE AND SCREENon 12-30-2021 TYPE AND SCREEN Antibody Screen NEGA TIVE Blood Bank Notes performed by CV on 12/26/2021 ABO Rh Typing A Rh Positive Blood Bank Notes performed by CV on 12/26/2021 Normal [facility] Comment on above: Performed By: #### R UBIGG #### [facility] [address] [place] [address] [address] [address] Juan Antonio Ibarra HEP B SURFACE ANTIGEN SCREEN on 12-28-2021 HBsAg Screen Negative Normal Negative [facility] Comment on above: Performed By: #### H BSANS #### [facility] [address] [address] [address] Juan Antonio Ibarra HEPATITIS C VIRUS AB W/ REFL EX QUANTon 12-28-2021 HCV AB 0.2 s/co ratio Normal 0.0-0.9 [facility] Comment on above: Performed By: #### A 1C #### [facility] [address] [place] [address] Dr. Juan Antonio Ibarra Interpretation: Comment Normal [facility] Comment on above: Result Comment: Nega tive Not infected with HCV, unless recent infection is suspected or other evidence exists to indicate HCV infection. Performed By: #### A 1C #### [facility] [address] [place] [address] Dr. Juan Antonio Ibarra HIV 1 AND 2 WITH REFLEXon HIV Screen 4th Generation wRfx Non-Reactive Normal Non Reactive [facility] Comment on above: Result Comment: HIV Negative HIV-1/HIV-2 antibodies and HIV-1 p24 antigen were NOT detected. There is no laboratory evidence of HIV infection. Performed By: #### R UBIGG #### [facility] [address] [place] [address] Dr. Juan Antonio Ibarra RPR QUANTon 12-28-2021 Rapid Plasma Reagin, Quant Non-Reactive Normal NonRea<1:1 [facility] Comment on above: Result Comment: Plea se Note: This test does not meet current guidelines for screening and diagnosis of syphilis. This test is intended for following treatment response in patients being treated for syphilis infection. To screen for syphilis infection, a reflex cascade that includes both RPR and a treponema-specific assay should be utilized, such as Treponema pallidum (Syphilis) Screening [place] (714564) or Rapid Plasma Reagin (RPR) Test With Reflex to Quantitative RPR and Confirmatory Treponema pallidum Antibodies (268828). Performed By: #### R PRQ #### [facility] [address] [place] [address] Dr. Juan Antonio Ibarra RUBELLA AB IGGon 12-28-2021 Rubella Antibodies, IgG 3.48 index Normal Immune >0.99 [facility] Comment on above: Result Comment: Non- immune <0.90 Equivocal 0.90 - 0.99 Immune >0.99 Performed By: #### R UBIGG #### [facility] [address] [place] [address] Dr. Juan Antonio Ibarra CBC AUTO DIFFon 12-26-2021 BASO # 0.0 103/ul Normal 0.0-0.1 [facility] Comment on above: Performed By: #### A 1C #### [facility] [address] [place] [address] Dr. Juan Antonio Ibarra Basophils/100 WBC (Bld) 0.3 % Normal 0.2-2.0 [facility] Comment on above: Performed By: #### A 1C #### [facility] [address] [place] [address] Dr. Juan Antonio Ibarra EO # 0.0 103/ul Normal 0.0-0.7 [facility] Comment on above: Performed By: #### A 1C #### [facility] [address] [place] [address] Dr. Juan Antonio Ibarra Eosinophils/100 WBC (Bld) 0.4 % Critically low 0.9-7.0 [facility] Comment on above: Performed By: #### A 1C #### [facility] [address] [place] [address] Dr. Juan Antonio Ibarra Erythrocyte distribution width (RBC) [Ratio] 13.5 % Normal 11.0-15.0 [facility] Comment on above: Performed By: #### A 1C #### [facility] [address] [place] [address] Dr. Juan Antonio Ibarra Hematocrit (Bld) [Volume fraction] 38.9 % Normal 36.0-48.0 [facility] Comment on above: Performed By: #### A 1C #### [facility] [address] [place] [address] Dr. Juan Antonio Ibarra Hemoglobin (Bld) [Mass/Vol] 12.9 g/dL Normal 12.0-16.0 [facility] Comment on above: Performed By: #### A 1C #### [facility] [address] [place] [address] Dr. Juan Antonio Ibarra IG # 0.03 10e3/ul Normal 0.00-0.03 [facility] Comment on above: Performed By: #### A 1C #### [facility] [address] [place] [address] Dr. Juan Antonio Ibarra IG % 0.3 % Normal 0.0-0.5 [facility] Comment on above: Performed By: #### A 1C #### [facility] [address] [place] [address] Dr. Juan Antonio Ibarra LYMPH # 1.4 103/ul Normal 1.2-3.8 [facility] Comment on above: Performed By: #### A 1C #### [facility] [address] [place] [address] Dr. Juan Antonio Ibarra Lymphocytes/100 WBC (Bld) 14.5 % Critically low 20.5-60.0 [facility] Comment on above: Performed By: #### A 1C #### [facility] [address] [place] [address] Dr. Juan Antonio Ibarra MANUAL DIFF REQ NO Normal [facility] Comment on above: Performed By: #### A 1C #### [facility] [address] [place] [address] Dr. Juan Antonio Ibarra MCH (RBC) [Entitic mass] 29.6 pg Normal 26.7-34.0 [facility] Comment on above: Performed By: #### A 1C #### [facility] [address] [place] [address] Dr. Juan Antonio Ibarra MCHC (RBC) [Mass/Vol] 33.2 g/dL Normal 29.9-35.2 [facility] Comment on above: Performed By: #### A 1C #### [facility] [address] [place] [address] Dr. Juan Antonio Ibarra MCV (RBC) [Entitic vol] 89.2 fL Normal 81.0-99.0 [facility] Comment on above: Performed By: #### A 1C #### [facility] [address] [place] [address] Dr. Juan Antonio Ibarra MONO # 0.5 103/ul Normal 0.3-0.8 [facility] Comment on above: Performed By: #### A 1C #### [facility] [address] [address] [address] Juan Antonio Ibarra Monocytes/100 WBC (Bld) 4.6 % Normal 1.7-12.0 [facility] Comment on above: Performed By: #### A 1C #### [facility] [address] [place] [address] Dr. Juan Antonio Ibarra NEUT # 7.7 103/ul Critically high 1.4-6.5 [facility] Comment on above: Performed By: #### A 1C #### [facility] [address] [place] [address] Dr. Juan Antonio Ibarra Neutrophils/100 WBC (Bld) 79.9 % Critically high 43.0-75.0 [facility] Comment on above: Performed By: #### A 1C #### [facility] [address] [place] [address] Dr. Juan Antonio Ibarra Platelet mean volume (Bld) [Entitic vol] 10.0 fL Normal 9.5-13.5 [facility] Comment on above: Performed By: #### A 1C #### [facility] [address] [place] [address] Dr. Juan Antonio Ibarra PLT 194 103/ul Normal 150-450 [facility] Comment on above: Performed By: #### A 1C #### [facility] [address] [place] [address] Dr. Juan Antonio Ibarra RBC 4.36 106/ul Normal 4.20-5.40 [facility] Comment on above: Performed By: #### A 1C #### [facility] [address] [place] [address] Dr. Juan Antonio Ibarra WBC 9.7 103/ul Normal 4.0-11.0 [facility] Comment on above: Performed By: #### A 1C #### [facility] [address] [place] [address] Dr. Juan Antonio Ibarra CULTURE URINEon 12-26-2021 CULTURE URINE Culture Observations : LIGHT GROWTH OF MIXED GENITAL ALONSO. NO POTENTIAL PATHOGENS SEEN. Normal [facility] Comment on above: Performed By: #### R UBIGG #### [facility] [address] [address] [address] Juan Antonio Ibarra GLYCOHEMOGLOBIN A1Con 2021 ADA RECOMMENDATION SEE BELOW Normal [facility] Comment on above: Result Comment: ADA RECOMMENDED LIMIT 4.0 - 6.0 ADA THERAPEUTIC TARGET < 7.0 ACTION SUGGESTED > 7.0 Performed By: #### A 1C #### [facility] [address] [address] [address] Juan Antonio Ibarra Glucose [Mass/Vol] 114 mg/dL Normal [facility] Comment on above: Performed By: #### A 1C #### [facility] [address] [address] [address] Juan Antonio Ibarra HbA1c (Bld) [Mass fraction] 5.6 % Normal 4.5-6.2 [facility] Comment on above: Performed By: #### A 1C #### [facility] [address] [address] [address] Juan Antonio Ibarra US PREG TVon [...] by: FELECIA GOLDMAN Date: 2021-12-07 16:59 Normal [facility] Coding Summaryon 11-21-2021 Coding Summary HTMLBase 64 OwlnrohaQNy6rXn+PGhlYWQ+PE 5TXDKsT44vrVUwfF4ZY6yGTH7Z NDXJCUAXLG5HWQ9gcWZ4NEleS0 VybiAv QefjgYWaIQ32WGx4JTY4hYrhJY rwoN3zhPBbG9q2OxLbME17fW60 QUbdJJOcKgS6YrUsjuqskIMj X2fbSzLnaRQlJgc+PHRhYmxlIH czCYIxXZyrAKFjLeOdzSdfMV5w Ei8oSBHqHBAnhHfdbVCbTfEw q3xvTBOjWCefOT0qgEfoH3UrjT P6XZPki6w1Py13zZW+PHRkIHN0 oPyzMOrml179AzDul6aqMMF5 rKOxDNcgUXS6M96db8R2HXXmSF IwFMF7pRY1dD7rkSnsfcjbE5Fo mUIjClY3JXY3kJQhwG4ajLyx qmldoW8cAfn+J68YEZ1KKSJRUF 8POlt6T3KcOatroVS+ZX47AZFi VY31qRGlgXZut6vreMp1BeBl YOTeGPX4oKdlDSigk8ThBWOgK4 6nmRBtt2J6ZEBjyMsjqNDzYyMs bEC1lM2bOLkqkhzgl2wpgxnl Ldbtp0ykih27wF39S97uEEwzIY MlMWO3CYFvUHDmfFybdp7ioW9p Ii8+IHmzg1jom1xemNi0ZdKw AVPtwrSngAzaHSJ6c4PoFy57Y6 AwpPtav4CrSkc8ye65kXQge5T9 jJV0VBniWRLwpM7lSJryBrO6 ATOkGlQjbS38eWGxNMmwMg3rcS enzSfdGX5mMVRwjeeaBSHdpY9v MTLknPMncGgfUS1bBBMqaesq b742ExTzQWO6QZWzdPHbB9UfpS 8xFkGzUYUtCCImR0OqdLUgFTnh C637KFqfFpV6KAWgerIfT9Gv VIBlxYubYgJ9n0Z5Rh8Pp5Rxel zlLEP1WRneTTH5RdW6PfFoKiH3 R0PhJeq1YPMuiIzzBR3aH4Ts UXTiujoxuhzxlYI4TBCaNXPznX 83sZBsJOwdEu5pu2L7k454QQHk ESDizS85Cs9dwHlrGQIksTVK uG0rjyrsk5tvghrpOfYsVUPcPU w2TUr1GQYqoNtqZsSqJVK1PvQ2 FKP4vTTxrM5cwTzjmenyoD7v Oyc+W43sfK3kAED2OQZ8amwkZW DpmtHhMU47SS49O0BuJdlzdGEg bGU+WTQwbnGinGdiKF4bFfZa e4zyh7VsAZjdC4VoSUXvQNuyVj j6PRQgRWT6uOJ2iV8tRNXgTMja k5I4pOK4P4MyeeUqfo7pl3ig TFZqVPajF11rrFNsu9H6WFBzdN E1BNHtzCbnTpGgsZ31Pkf+PGNv wWjrr6XaUlhab6ejj6mryVx5 KkHzSMDiijNqnZpjTBU0o5UwWp 43Q25tSBjiQGHxNRQjGRNeQYDe zHjjmn6hyO7fSt9+PGNvbCB3 tQM1zT2uMTCtBfT9ZBhoI780Ex AvrHOmInmyk6hlh5djmNk6BcJu PFUnysGwnKioVFH8n3DsZv08 J40cINtaAMLiNKShJIPtPUDqaE zwjc4dlC4aLd7+OX3uz2ugoa89 hQ85fRX+FHOxNVD3lGztRUbx XVKlnM6mIKrkGrA3FSEtUhYvpQ 11lVStSZxnAv3ziTkbrMqsTA7b DUJbqibix117GoDcs3klNMSm iRUcGGehEBQ0K58pu0H6IVUzMQ OoOBY6kVB8lM7hzDrfgosyvGOr kEvycjOdnXduZThhOVuqJ009 IHRvcDsnPlBhdGllbnQgTmFtZT p8N6WcJao9KDKrsGewDG1fyENz LNrpAe4jgPataYuuTT5hKAXq logao890CeWep7umIPCwkZMdST epWYR5L59cj3J8JTHkUEHzTWM0 wEQ3rQ8fcIvfhsuphYEnfQrt idEetMkgMJknWTcoM039NJGgiZ nkSqMtixZeUBKroFY0QJ01YE37 vPYne1O2aEV3P6MwZQTjlvga lpxyiFC7NQXiYEIhsZ91Wr2gfW itPk6aPJZzFIG6MNIdmHFtI9Ct gV3pUuKwJSYpGGZiR5MrrHBo PVgeQ277RLraDuA9VPEfngKgV6 CgIFEgvVfhWgT9y6M2Ro7OA2F9 WA94DL17ySGbl7U8bWV0V6Ro EDDifefwwolctBU4ZUHfQQVdkZ 29Xu0zgMzfHr5sCHQxSWU1NVWt lBIxH9OhqF7xHwXyXQSfKRYt K0YssVJjWIshY166OEgrZtI2YI VgjcWdK0ObEGOjnUjyEtP8c1H2 Qg7QZPr0OB76JX64mZBen6Y3 wXR8M6KtVMOugognqwrpjNB1ZS LuNDHreO23Wj0nfJteYw9eWRSw OYH9SEZocYIsY2BwkT1uAzRv XILvDHNdQ3FbfEJgDSlhA140SE xhXjP7QECxyhNsG7UoBAWnmOoo YyR1f3Q4Qd2JOWYiMC35HBG0 hPH5FF58BX43I2QmCbhazFAvxD U+PHRhYmxlIHdpZHRoPScxMDAl KhZmuNpiMH3aIw9nXGVfESEp mMlsyJPqFuReb7wkGHDmKEnqZG 4brAtwR6YmcPO6NMZfb0x8Ry73 O37bW5ThfET+JBDyjDI0eUL7 kA0rPuZaTaW1YItmO813PgHooL WfJoaex6wrw1ndlRl5EwX6FZRm xqJiaCfpSZL1z4GjMl94O47r IHdpZHRoPSIxNSUiIHZhbGlnbj 8knJ3kVm8+VQQfoMC2sCM8gB6v CuNkCfX3QXbvN523ZzHjyIVr Queco9vtn6zakMp2CpChJNVfbb KiwNksZND4s4HwMy26C8HnyCxs g2MlNmx9hg82cPCte5A7cTR7 F8KqEXHaytuffYUylGoqZD6xZQ NkxuwsPWRsvN1jGSWiT2i7KbPa DjD2OGmmF4XjkaA5EJLzlEKc SSsoENB4L52sd5G9JMWnZCIfAW V7rHT3dK8ykGiyrvdkuODanWoz yxHyvBecQCpfHDzcG787KVWf zHgmSDKdkV8eCKYbvTYuxChgRS 4wNTBpbjsnPlNURUlOLCBWSVJH HD9VEMNYNIH4U3DuCiu0BXMr cElpVF1qyOXgULnsLx4uvUovyX znSL9fSINbqlxoLXYgqF7bRQRs sQNcaOheSC8kRQQhxcfhp774 MoTjFYD0UQVmwXArC1ZhtT7fEl RdGTYlTAEsW3KgnHZtGHesQ391 AUreHhD0WJBwlyFiZ8ErHYPf tQbqYbV6j5Q6Lt7wWP1aBX1eNG siXM97UK07fEJqu4P9pJD1L9Am OMEjvrnqmxygmUZ2BMBqZZIe sX46fWShQJqkGt9hl2L8v650QF KaSYXciI45Qg1mxTmmTCThvWMC bA6kflapt8eqfqzdPcLiWEFb OKe3EXq9WRUfmXimFzEtFZB8Nd B3HJL7gIXjyU6wjXmqwuwprF5j Oyc+KymuSEEeakA9X1TuTgc2 JZYprHyzNX6zpUVhYHquBu8xcE uyiTedZH9bFDVrtvfuAZUjoO8i HOZzjXWfsBwbTX0lNJWlahoj h063FoAdWJP4SOEkvQMpJ0MnzC 7dGlJgYSUtOEKvM3ElgFChIFhf B358XWlmTaL3QDOhtwSeF8Bw KKVfuXcxPqB2i3W4Ee2BVZ2QSK P2J6ZsRtr4CZCfiNqjAB5xwOUk ZKuxQz4reMaxrWisZH0rROAk qidbZQQqmI7tKWIkqRIfqSzqWN 0jMPBojlodv225PbNqMNQ9SILo gSRjZ4RwiZ1wHhApYLWmKLGb H1KalQBvWIrgQ880KEgbGgZ3VZ EonnOtW6LoDDLycSsjDvS4e7V6 Wj7KBQxqsPK+KY25ax03U0Gz YqddPcf9EHOuUAP4eYN1iZ4vZL HgECaev7B3uZW9C6PwjrPttf2u h7vwFCVyBRekO56opQNuk9D1 XFPnfTU5RWMuyTuoElHlzM77Gd c+MVQeiTojy0OhFvhdi1swk5rv zEy5TbZsMNWycjCaiMwyKPE1 k1TeBp39R72cBCqzHGXiCJGmLA DnGLAsoWljqp1cpV7xEk4+PGNv nEO7iTT2sE9rCnXaQtL0FNmp U039WkHhpPIjViizs2zsu6badU z6AvUkBNQugqSbgPlrVLG5x5Ei Oj40U7SiyAate4PfGzr6bo05 jQVcc6M4zUW5Y3LtAPYdxsjyyD PjwTguIC9wSWMtkfdhNGFkmT8v BCMaO2z7RsHvKgP8GHneN5Yl elZ9KSDjbEUqYDHyhONQjI5pns hlu1lwmjunTmHjNVHmVAe7RHe7 ZTNjeYkwVuDiYFB9VgM8ZUQ9 cDBckD8mdWojwfjupD8ySsn+UG q8r3turBZqCK8ibDT8QT38LQ22 fBDsr6V1pBG1N7TaLMKbydna ebizhXD2YFRvAYDpyA79Ow4poB teUj8vALEcLRW9FTFaxJZxM3Jv uM3vByPwRHVgAZPsH3CnxCKt CTolU201LPbgLlD9BOOjnmLkM9 BvNYRzoFxdCsK5n7F0Ui5ENQ04 LK73ZV82qUSsp3P6oII1N6Ga UUGllufzdtgqhZJ2ASBxONYcfB 76Xr3gjNqrNx1dJZHtBZS2UEOv dXOkS0IxdU2gHyItHZRbNYEy X8YziPKuKYkpB754MDwqAbN2NX GgbiQkB2CiDKJnsVyrChS8m5H5 Zt7SOk23RY29UN49mWEta3D2 hJN7B2CqRSEzazkigavzjGI5RM UzNNGwwQ50Bx5qzNltXe5lPFMn QBX5TTSmfGGnQ4OkxC5bSxQg ABNwLTUfO1TbeZMuUTizQ285GU caXtO2DYEoqyIfK7NuCCEkhTur DbE4s9G3Hq8NRZdgpuu6Z3Bj PjwvdHI+TV88PMLyCJ61uQPzfH Arj1iisEz6HcTrKNHlZAD9oEgm IWghe3VwLMPzD90ihZZes5V1 IGN (more content not included)... [place] [employer] Summary HTMLBase 64 KdmvnkxyCLy2cNg+PGhlYWQ+PE 4BFKFuL61soWPfbK7JA3sYAI8Y SXGNWWULBU4OJX7bmJD9YAzrQ8 VybiAv OrtwhUGjMT24PUy7YXV3qGtwAX itzU4wvWXvU9k3DcQmZX11rS86 XJolKMAwHdA6SuMmgwnhfZHu K5scKgPwrNHwAef+PHRhYmxlIH tkKANdBWikPQHiXaAdwLqcVP0f Xk4kQENiZXIoeCmoxAWiYqTz t9haTTDoHOtyOG8afQxzW3EciS T8RSUos5m3Dl90xDX+PHRkIHN0 eYoxAXdbx969WuDuj6wmJPL7 wIHqWZriLCY0F29bs5X2KKMsXK BpGUI1qBT4uM9dcEbimbqsB0Jg jONnUvF7VCG6fJBihS6zdZfv abnnrD9mUqv+D52GVN0UXUYDIW 3LEst9A0HwSqiheKS+ET11OLSv OU05fAVkpNLpb1xhrAe2KuSs WTPqWBY7pUhgRXdlq6TgMMDeF6 0foRXns4T7FKLgvDnsyKGzHmOc xZY4zI6vZSbctyfay1cfuikm Xbkfy0iids36cS13H73uKDnuGQ DbDBE2WEQtZVEeyOahtc1sfY2y Ii8+IMvrb0toe4sltOl6VjJw SUAjrqMesFryPXD7r9JeZm26V3 AjtXckr0FvZwg6vy70pMVfn2O3 sCV6MJmoQKNcuT1aAYezIrW1 JCFgGqMvbS92bXFqTXzwJy1hgQ yjtGtjCY8vCERlayouUPPnnJ0p IEKdaQLosXibZP6jFFVptwzz f301LhRiZQP3MFQbkXUyK3QxqA 2lAfMhMXVwRQUkI9OwrMXrXBno I949OFfnBfY8LNKwowUyR4Tw VYJefPdzFfV0u8Y9Hc9Iu2Xpru woKCM6DChpZVE4TxU9AnOuEoK3 Y9HlEef1SJMylXdiWF8kS7Gt YVZtyxknttftlFQ1GAArQSEiwY 54fJWqAWqeUw0zo1Y5n948PYVv LONpiC84Ck6oqVpbMSXpoXFX fV8brpvfw4spsahtOaMrZQBkKG d6SNm0OXCkiLcqClUlUOX4ZsC6 RGV2xEMghN7ubSboglfbnS2g Oyc+F80ehB3kBFV2NTH4utygSD FwyvEjAZ99EG85I9TvCrdjwLMq bGU+KZJsafPduTobLW2qPxOx u4iza8TrEZpvE5ZuEUYfLRxxVi q2ZOKaHTD7xFN3rR8dYOHpSWty e0F8oMF5R3IztvUmpv2vx3wm ZFYdFKpaR19iiHRog3X3HHWgtX X4OASkfJzqHnEhtK50Oen+PGNv pPjbr8GfTpwhd8dxh0onaCj8 WhXxWVUjvvPbsKbmIVJ9h0EmWf 53T10pUQbyDICnFAOuVJJsRJDg nShxxa8jiO4yLe2+PGNvbCB3 tJO4xY5rYMGgTcC6ATvjQ472Mp FuiEXyIpyiz1luw4aguEa5XgEo NRCwlgMwnBgjNMI9h5NbKe08 J15qDFqkIBPxKDJzCEBeMOIfjI xiha3yvD9xNm8+OA5cd9gcjd88 bJ82bMH+BZWxAZL1rTsjAWwq LWIotU3qCDmcJgK2QWBmMwWpmH 09gIJrAUxbWe5ryLkvaJicSG2p LDGjnbeez275IvOun1gkLEVz vOZkIPnpWZL7J50wk8T6VVJaRV FvMBN7zXC2rU9faYfktghrdZRl bGsxjyQhuTjkZJkaDElpS162 IHRvcDsnPlBhdGllbnQgTmFtZT u7K0ToOay0QQUjsKxdMU7hqVIa RSofUd5pdIdebRgkIG6qYBRd ruabm098VdCzp5ehSVUhdCPmRL npUNI1H08yu4J4DPErXDYgVIN4 vOJ5wZ6xjQfprlpcxAWukInu hpPlnQsiCUxkFUzyT988FRCtpH gmGzOroyImYWVhyTU3QW09BL89 cUYzn9H8kYF0E1SqTIIpqtak rhdhjJQ5JXNeBNDstX29Hi1neK asIr2sGJRfVAE4FPPomRMcL6Nq cF6uObLuQBClLYEqN0LqoFPy BZxyK402TRlxLpN1FVXyecSsK6 XrOIGogXzcOrV7v5Y0Uf4QU7L8 GD43VI93lIEmd0X5wXU2P0Io NQMmwcffkxjxeCQ8RQCoUAKkrJ 70Yk4ytJemAh6yVCXsFXR3IWKo cJFjH4BmrK5fOxMmYRYbFHNy M4BtgGMjHQoiU814NYbvZaL4UT YhhrArE0RfKULroEmkRuE6s9I9 Em3ENCr9JC19RM83qSPyl5Q5 fAN1D8VzMFYkospkrkytiRK1NE YmHLIhwD02Hm1blByoZq4kBCFw CEN0FUInrTHdO6UbsX9sSaCk ONFyWTYvQ8OixENfIYzeG686RW kcBkM4WVTmprPhN2QsKUIicLgu YpJ3h0S0Iz5KICEaFO11BVQ1 cHO3IM08OM05E3BuYrcucHLddJ U+PHRhYmxlIHdpZHRoPScxMDAl HhHmiLqfQM2tWt3rBLFzLHYn oYwpoRAaZoPkt9ezHMQbGPwfBC 6niBqxS2FswQX8FMDah2n5Vg80 O98vZ2ZgkAO+COGnrFS8iEJ0 yY1gNzBlQsT9TQdaD514CdAtbL EbJivko7mam0jgsXl9AhG5RDZo dfFmgNgnGLV4n1SmWz24C97o IHdpZHRoPSIxNSUiIHZhbGlnbj 3daY9mIy8+GKNdqNN1sNG3uT7j LwTfYjV7IUhbS231KkWpbJNe Mioxv1fqy9bsdOv2TlNkRFSzum EynGgrASU8d1WvBm47W2PgxBhc m6MuZki2gb42pASwa7Q8nSN3 N5KbMGKmenfqfNLolQcpTF0pOK QhreadLZKxpL5tWPFfA5g0KgPy VpC4LZlsJ9WwkuJ2TNOhmISe MVpvBND6L94lm4S8MDLkYDNwHX U8pAB4mJ2bvSomnqvspDLddYfy wiHfoDttSQleRPejL620MXUk cDlgQKRoeW6zPNWflBVwyTzwFR 4wNTBpbjsnPlNURUlOLCBWSVJH TS0ZXOMQNJZ0N2LrPmy3QXYm vXirDS7vtQReBXsjWs0rvPsmlQ jqHO6fOIQvhunoJXHwqH4zWUWq gDCmfJhoEM5bWFWhkdesr417 BlQeHNR8ASOfbVTwG6OyaI8oMx XlXJYtFWUvH7WrfOBiADonD461 JBgzElT2BOGxpsQdY8NgYGIj xDyzRbF6n7J4Np5bFD9hJO8bMY yaPF04MV41aKVke6U4mMG6E6Xe MBPbnjrsymipfDA2DJXmQLQd nI32kHAcZWnzIy6bs0B1h124NO UuUYTkzA81Jz9yxZlqQHQopDCS xU3zzdvuv4obybbhCkAoOKHb CHf0NYv7FISjdBnzOpHxZNS9Uz L3SDV3lOFryL5ckOhcojohtJ8k Oyc+KrpfZKTxrwA9H0ZiKxw1 NNFgiLuiWU5ycOIgAPjzMu3yyM ajsVdcOD7iFUVwemapCAXfxO8x YXNltCOqzLjvEV1cKLJghzua x121LqUjGGZ8XTLrsPKeZ1RisI 5mYcMzLXDaWJOpW6PajDFrXDty S489NSssNqO7PAQoxzAwX0Eo JQMulWolOtD9p7O4Ww0CKO9CXT H3H0FwRzk8VFEhbHtiEB1uyZJc AJimSi9qmLcifJcsWC7cLFPp sgfaHNTxsJ2hSJApxOLprJfwBA 9oLKDmxodqw405LkRnTMX4HRFm rIKcY0LyuC7rSfPhURPjSCOi M1QsdHFyCFafV019YBziDhQ3UX ChyrOsF2SwNHQmyPyzOeM6i4P1 Px4UpLAkT1OgN2h4V5QbYput dHI+BJ67GQKbAD12wGAgaEQac3 zeuNq1KeYbBPVhQPY4dMcqCTnl o4BzUBRtN24mfEUrz1H8MPUp aSitnWQaKyMwhPQ5aR3oVDtkam fet2asjttdYmeuw2wuwg53oW33 V07sUEupLJYaHYLyIMQeJSHq lCeicx4wmI5uSx3+OPEomIW7uP R4kM6oFrIrIfK3OYseB920UiLu wFLlQaxhh9npi7nuqFm2CzLe DDYpzsBtaUsrNSC2f1LzKe90N7 9sIHdpZHRoPSIyMCUiIHZhbGln kz3oeV8vOq1+GY1pa7ofjm94 iN43oJJ+CABbYTA7hIotWFcjAH KuwD8eELazAtN1FNQrXhMjvY07 dZRqWUqmVx5ryMfowKlzEI2t LXBgojbfi315EyHhn4peFUNurE IfTDtwOQR1L97ik0O7TAUvDULx CFF2yNV4dP2ekGyqmzskfMHq qHbqjoWlvEqeFQqoFDlxM553DB NyrKgfBeGfhGPmF7cmxxIJWY2e OjwvdGQ+JSAqGAW4jKuqARmp NZPyzN5aONHoK6r8UuEoKtN9UG jpK8ErcrO6BYSzmLXiNUXbbCQT xV7chgdik5ooeienKnBmSKAv KVj0DWt4MAUxpTxiWlSjKST7Nu I2BCL4eZBxpW8yzVnyvwvmeU9m Oyc+RklOOjwvdGQ+PHRkIHN0 jRyxCDvlATDzaP0rQWAwZ3u6Md CyKmV5CBfcP1IuzzA5BUBymVYz ZLOxsAJBbW2xfnepb7dtjfmz MfClHTJxTEv2PXl1NLNdhFasQp MfMIS1TtQ6LGJ8cRIxxX3blNca zehhqC2hXjc+TVJOOjwvdGQ+ CGZvEYG1oXplBGqoDYQeuQ4xVQ TrU3z9XlFyBnH6OMizF0FysaO9 EXYirBVlLSDwhOBTiK1ekhlt r7habjekSzUuJOXwEPz5GXz6KZ LubNweIiIvVXK5PcB1FUV3cUSf zZ8nnZjzqucppE9cWma+UGF5 COL1AA88QC44E4YcFsolrKWoiD U+PHRhYmxlIHdpZHRoPScxMDAl HtRajRlkPS9eSw3uKISvRJFv bGx (more content not included)... Normal [facility] ED Clinical Summaryon 2021 ED Clinical Summary [facility] - Emergency Department [address] [place] [address] ED Clinical Summary PERSON INFORMATION Name: ZULEIKA WYATT Age: 31 Years Sex: FEMALE : 1990 MRN: Acct#: Visit Reason: Rib/trunk pain-swelling; ABD PAIN Arrival: 11/13/2021 16:30:24 Discharge: 11/13/2021 18:01:00 LOS: 000 01:31 Check In: 11/13/2021 16:30:24 Checkout:11/13/2021 18:01:00 Address: [address] [place] [address] [address] [facility] [address] PCP: Andie Stoddard PROVIDER INFORMATION Provider Role [...] With: Address: When: DIANA, CUONG [address] [place] [address] Within 1 to 2 days [...] results be sent to Dr. Ortiz, your BOTTLE FEEDER physician. She will contact his office tomorrow [...] Patient/family/caregiver verbalizes understanding of instructions given Comment: [place] ED Note-Nursingon 11-13-2021 ED Note-Nursing pt arrives [...] 6 with steady gait and no assistance. [facility] ED Patient Summaryon 022 ED Patient Summary [facility] - Emergency Department [address] [place] [address] PATIENT DISCHARGE INSTRUCTIONS Patient Information Name: ZULEIKA WYATT Age: 31 Years Date of : 1990 Reason For Visit: Rib/trunk pain-swelling; ABD PAIN Arrival Time: 11/13/2021 16:30:24 Primary Care Physician: Andie Stoddard Attending Physician: Gamaliel Wyman MD Comment: Visit Diagnosis: Diagnoses This Visit Elevated blood pressure reading (R03.0) History of abdominal pain (Z87.898) at early stage (Z34.90) Rib/trunk pain-swelling ([id number]) Prescription Information: If you have been given a prescription for narcotics, seek immediate medical attention if you have any difficulty breathing or any sudden status changes such as confusion and sleepiness. If you or anyone you know is experiencing suicidal thoughts, mental health, alcohol and/or drug addiction problems; contact the [facility] 07/01 Crisis Hotline -Text 4HMKN to 965384. If you received any narcotics, sedation, or [...] legal documents With: Address: When: CUONG ORTIZ [address] [place], [place] [id number] Within 1 to 2 days Comments: Diagnosis [...] results be sent to Dr. Ortiz, your BOTTLE FEEDER physician. She will contact his office tomorrow [...] and treatment you received today in the [facility] Emergency Department were for an urgent problem and are not intended as complete care. It is important for you to follow up with a doctor, nurse practitioner, or physician?s real estate executive assistant for ongoing care. If your symptoms [...] so we can reach you if necessary. [facility] Emergency Department has provided you with a complete list of medications post discharge. Please inform your office administrator/provider of your visit and for further instruction on these medications. Any specific questions regarding your chronic medications and dosages should be discussed with your primary care physician(s) and/or pharmacist. New Medications Printed Prescriptions [facility] Prescription (Quantitative beta-hCG) Quantitative beta-hCG. Please call [...] Temporal: 3 (more content not included)... Normal [facility] hCG Quantitativeon 2 hCG Quantitative 95098.0 mIU/mL High 0.0-0.6 [facility] Comment on above: Order Comment: Lucy whitney call or fax results to Dr. Ortiz's office Result Comment: Resu lt confirmed by dilution Post-Menopausal Reference Range is: 0.1-11.6 mIU/mL Performed By: #### 7 [id number] #### [facility] (DEFAULT) [address] [place] [address] Coding Summary.on 12-19-2018 Coding Summary. CODING DATE: 019 [facility] STATUS: Left Against Medical Advice PAYOR: [...] Saved: 12/19/2018 10:35 am Normal [facility] ED Clinical Summaryon 2018 ED Clinical Summary (Inserted Image. Elena ble to display) [address] [address] ED Clinical Summary Person Information Name: ZULEIKA VILLALTA/[facility] Age: 28 Years : 1990 12:00 AM Sex: Female Language: PCP: Marital Status: Phone: [phone] Visit Id: Visit Reason: Test; MENSTRUAL PROBLEMS [...] 12/15/2018 5:58 PM 12/15/2018 5:58 PM ADDRESS: [address] [place] [address] [place] [id number] PHYS DOC NOTES: MEDICAL INFORMATION: Prescriptions Given: PATIENT EDUCATION INFORMATION: Instructions: Follow up: DIAGNOSIS: Normal [facility] ED Patient Education Noteon 12-15-2018 ED Patient Education Note Normal [facility] ED Patient Summaryon 019 ED Patient Summary (Inserted Image. Elena ble to display) [place] [id number] Patient Discharge Instructions Person Information Name: ZULEIKA VILLALTA Age: 28 Years Arrival Date: 12/15/2018 4:37 PM Discharge Diagnosis: Primary Care Physician: Provider Information Primary Provider: Advanced Mentally Retarded Teacher:None The exam and treatment you received in the Emergency Department were for an urgent problem and are not intended as complete care. It is important that you follow up with a doctor, nurse practitioner, or physician?s real estate executive assistant for ongoing care. If your symptoms [...] opioids can be used to help relieve qoasymrm-dh-eydobk pain and are often prescribed following a [...] be struggling with addiction, tell your health patient care director and ask for guidance or call [facility]?S National Helpline at 7-773-566-YXCL. g Source: [place] Department of Health and Human Services/Center for Disease Control & Prevention [facility] Medications Given: Medication Dose Route No medications found. Medication Information: Comment: Pharmacy Information: Thank you for choosing [facility] Patient Education Materials: JADEN Jacome [place] , have received the following patient education materials/instructions and have verbalized understanding: Patient Education Materials: Follow-up Instructions: Prescriptions: Patient Signature __ Date Clinician/Nurse Signature Date 12/15/18 17:58:10 [facility] Progress Note-Nurseon 2018 Progress Note-Nurse Patient: EDGARDO [...] care of her daughter. Normal [facility] U BetaHcg Qualon 12-15-2018 HCG.beta subunit (U) [Moles/Vol] Negative Normal [facility] Comment on above: Performed By: #### 2 [id number], [id number] #### [facility] [address] [place] [address] UA With Cult Reflexon 2018 Bacteria LM Ql (Urine sed) TRACE Normal Trace [facility] Comment on above: Performed By: #### 2 [id number], [id number] #### [facility] [address] [place] [address] Bilirubin Ql (U) Negative Normal Negative [facility] Comment on above: Performed By: #### 2 [id number], [id number] #### [facility] [address] [place] [address] Clarity (U) CLEAR Normal Clear [facility] Comment on above: Performed By: #### 2 [id number], [id number] #### [facility] [address] [place] [address] Color (U) YELLOW Normal Yellow [facility] Comment on above: Performed By: #### 2 [id number], [id number] #### [facility] [address] [place] [address] Epithelial cells.squamous LM.HPF (Urine sed) [#/Area] 0-2 Normal 0-[address] [facility] Comment on above: Performed By: #### 2 [id number], [id number] #### [facility] [address] [place] [address] Glucose Test strip (U) [Mass/Vol] Negative Normal Negative [facility] Comment on above: Performed By: #### 2 [id number], [id number] #### [facility] [address] [place] [address] Hemoglobin Ql (U) Negative Normal Negative [facility] Comment on above: Performed By: #### 2 [id number], [id number] #### [facility] [address] [place] [address] Ketones (U) [Mass/Vol] Negative Normal Negative [facility] Comment on above: Performed By: #### 2 [id number], [id number] #### [facility] [address] [place] [address] Toston.plasma/Toston .RBC (Bld) [Mass ratio] 0-3 Normal 0-[address] [facility] Comment on above: Performed By: #### 2 [id number], [id number] #### [facility] [address] [place] [address] Nitrite Ql (U) Negative Normal Negative [facility] Comment on above: Performed By: #### 2 [id number], [id number] #### [facility] [address] [place] [address] pH (U) 6.5 [pH] 5.0-9.[address] [facility] Comment on above: Performed By: #### 2 [id number], [id number] #### [facility] [address] [place] [address] Protein (U) [Mass/Vol] Negative Normal Negative [facility] Comment on above: Performed By: #### 2 [id number], [id number] #### [facility] Laboratory [address] [place] [address] Specific gravity (U) [Rel density] 1.010 1.005-1.[address] [facility] Comment on above: Performed By: #### 2 [id number], [id number] #### [facility] Laboratory [address] [place] [address] UA Spec Desc Clean Catch Normal [facility] Comment on above: Performed By: #### 2 [id number], [id number] #### [facility] Laboratory [address] [place] [address] Urobilinogen Qn (U) 0.2 {Pamela'U}/dL Normal 0.0-1.[address] [facility] Comment on above: Performed By: #### 2 [id number], [id number] #### [facility] Laboratory [address] [place] [address] WBC Auto Ql (U) Negative Normal Negative [facility] Comment on above: Performed By: #### 2 [id number], [id number] #### [facility] Laboratory [address] [place] [address] WBC LM.HPF (Urine sed) [#/Area] 0-5 Normal 0-[address] [facility] Comment on above: Performed By: #### 2 [id number], [id number] #### [facility] Laboratory [address] [place] [address] Auto Diffon 12-12-2017 Basophils Auto #/vol (Bld) 0.1 E3/mcL Normal 0.0-0.2 [facility] Comment on above: Order Comment: Order Added by Discern Expert. Performed By: #### 2 920308 ####KADEN BairdDbcJpdf9874 [place] [address] Basophils/100 WBC Auto (Bld) 0.9 % Normal 0.0-2.0 [facility] Comment on above: Order Comment: Order Added by Discern Expert. Performed By: #### 2 925516 ####KADEN BairdJlwFcld4011 [place] [address] Eos Absolute 0.0 E3/mcL Normal 0.0-0.7 [facility] Comment on above: Order Comment: Order Added by Discern Expert. Performed By: #### 2 657533 ####KADEN BairdNtmIymp8105 [place] [address] Eosinophils/100 leukocytes 0.4 % Normal 0.0-11.0 [facility] Comment on above: Order Comment: Order Added by Discern Expert. Performed By: #### 2 666790 ####KADEN BairdBhwYupx1616 [place] [address] Lymphocytes 1.4 E3/mcL Normal 1.2-3.4 [facility] Comment on above: Order Comment: Order Added by Discern Expert. Performed By: #### 2 771812 ####KADEN Luceroo1025 [place] [address] Lymphocytes/100 leukocytes 16.6 % Low 20.0-55.0 [facility] Comment on above: Order Comment: Order Added by Discern Expert. Performed By: #### 2 122277 ####KADEN Luc[address] [place] [address] Barren Absolute 0.5 E3/mcL Normal 0.0-0.7 [facility] Comment on above: Order Comment: Order Added by Discern Expert. Performed By: #### 2 149736 ####KADEN Luc[address] [place] [address] Monocytes/100 leukocytes 5.5 % Normal 0.0-10.0 [facility] Comment on above: Order Comment: Order Added by Discern Expert. Performed By: #### 2 533361 ####KADEN [address] [place] [address] Neutro Absolute 6.7 E3/mcL High 1.4-6.5 [facility] Comment on above: Order Comment: Order Added by Discern Expert. Performed By: #### 2 155145 ####KADEN [address] [place] [address] Neutro Auto 76.6 % High 37.0-75.0 [facility] Comment on above: Order Comment: Order Added by Discern Expert. Performed By: #### 2 978924 ####KADEN [address] [place] [address] CBC w/ Auto Diffon 8 Erythrocyte distribution width Auto Ratio (RBC) 15.0 % High 11.5-14.5 [facility] Comment on above: Performed By: #### 2 685251 ####KADEN [address] [place] [address] Erythrocytes (RBC) 4.94 E6/mcL Normal 3.90-5.40 [facility] Comment on above: Performed By: #### 2 212760 ####KADEN [address] [place] [address] Hematocrit (HCT) 40.0 % Normal 36.0-48.0 [facility] Comment on above: Performed By: #### 2 037527 ####KADEN [address] [place] [address] Hemoglobin mass conc (Bld) 13.0 g/dL Normal 12.0-16.0 [facility] Comment on above: Performed By: #### 2 057144 ####KADEN [address] [place] [address] MCH 26.2 pg Low 27.0-31.0 [facility] Comment on above: Performed By: #### 2 668085 ####KADEN [address] [place] [id number] MCHC mass conc (RBC) 32.4 g/dL Low 33.0-37.0 [facility] Comment on above: Performed By: #### 2 225322 ####KADEN [address] [place] [address] MCV 81.0 fL Normal 78.0-100.0 [facility] Comment on above: Performed By: #### 2 023787 ####KADEN [address] [place] [id number] Platelet mean volume (PMV) 7.5 fL Normal 7.4-11.0 [facility] Comment on above: Performed By: #### 2 437944 ####KADEN [address] [place] [address] Platelets 347 E3/mcL Normal 130-400 [facility] Comment on above: Performed By: #### 2 642139 ####KADEN [address] [place] [address] WBC (Leukocytes) 8.7 E3/mcL Normal 3.6-11.0 [facility] Comment on above: Performed By: #### 2 723785 ####KADEN [address] [place] [address] CMPon 12-12-2017 Alanine aminotransferase (ALT) 14 Int._Unit/L Normal 10-40 [facility] Comment on above: Performed By: #### 2 479089 ####KADEN [address] [place] [address] Albumin 3.8 g/dL Normal 3.2-5.0 [facility] Comment on above: Performed By: #### 2 889815 ####KADEN [address] [place] [address] Albumin/Globulin Ratio 1.0 {ratio} Low 1.1-1.9 [facility] Comment on above: Performed By: #### 2 904001 ####KADEN [address] [place] [address] Alk Phos 75 Int._Unit/L Normal 42-121 [facility] Comment on above: Performed By: #### 2 265766 ####KADEN [address] [place] [address] Aspartate aminotransferase (AST) 18 Int._Unit/L Normal 10-42 [facility] Comment on above: Performed By: #### 2 276516 ####KADEN [address] [place] [address] Bili Total 1.0 mg/dL Normal 0.2-1.0 [facility] Comment on above: Performed By: #### 2 777603 ####KADEN [address] [place] [address] BUN/Creatinine Ratio 12.5 ratio Normal 5.4-30.0 [facility] Comment on above: Performed By: #### 2 631241 ####KADEN [address] [place] [address] Creatinine 0.8 mg/dL Normal 0.6-1.3 [facility] Comment on above: Performed By: #### 2 999534 ####KADEN [address] [place] [address] Globulin 3.8 g/dL Normal 2.0-4.0 [facility] Comment on above: Performed By: #### 2 748117 ####KADEN [address] [place] [address] Protein 7.6 g/dL Normal 6.4-8.3 [facility] Comment on above: Performed By: #### 2 333933 ####KADEN [address] [place] [address] Urea nitrogen 10 mg/dL Normal 7-18 [facility] Comment on above: Performed By: #### 2 622558 ####KADEN [address] [place] [address] Calcium 9.3 mg/dL Normal 8.4-10.2 [facility] Comment on above: Performed By: #### 2 586784 ####KADEN [address] [place] [address] Chloride 105 mmol/L Normal 98-107 [facility] Comment on above: Performed By: #### 2 723940 ####KADEN [address] [place] [address] CO2 25.1 mmol/L Normal 24.0-30.0 [facility] Comment on above: Performed By: #### 2 855014 ####KADEN YduLeyg3652 [place] [address] Glucose mass conc 101 mg/dL High 70-99 [facility] Comment on above: Performed By: #### 2 294972 ####KADEN QcnUimo8674 [place] [address] Potassium molar conc 3.4 mmol/L Low 3.5-5.1 [facility] Comment on above: Performed By: #### 2 264438 ####KADEN EcsIesq9861 [place] [address] Sodium 140 mmol/L Normal 136-145 [facility] Comment on above: Performed By: #### 2 274264 ####KADEN [address] [place] [address] Lipase Levelon 12-12-2017 Lipase Lvl 30 U/L Normal 8-57 [facility] Comment on above: Performed By: #### 2 503489 ####KADEN [address] [place] [address] UA Completeon 12-12-2017 UA Blood 3+ Normal Negative [facility] Comment on above: Performed By: #### 2 229111 ####KADEN [address] [place] [address] UA Bacteria Trace Abnormal None [facility] Comment on above: Performed By: #### 2 135102 ####KADEN [address] [place] [address] UA Clarity SltCloudy Abnormal Clear [facility] Comment on above: Performed By: #### 2 691656 ####KADEN OlkVzeb6047 [place] [address] UA Hyal Cast 0-2 Normal 0-2 [facility] Comment on above: Performed By: #### 2 288520 ####KADEN FjhUjsc5577 [place] [address] UA Leuk Est 3+ Abnormal Negative [facility] Comment on above: Performed By: #### 2 292350 ####KADEN NzhBzne7413 [place] [address] UA Mucous Many Abnormal Trace [facility] Comment on above: Performed By: #### 2 361095 ####KADEN UjrZezt4286 [place] [address] UA Nitrite Negative Normal Negative [facility] Comment on above: Performed By: #### 2 000609 ####KADEN WdwXcdy3610 [place] [address] UA pH 5.0 Normal 4.6-8.0 [facility] Comment on above: Performed By: #### 2 720313 ####KADEN [address] [place] [address] UA Protein 1+ Abnormal Negative [facility] Comment on above: Performed By: #### 2 992034 ####KADEN DgsLsbu7850 [place] [address] UA Spec Grav 1.026 Normal 1.003-1.03 0 [facility] Comment on above: Performed By: #### 2 529604 ####KADEN YydZxuw9716 [place] [address] UA Squam Epithelial 0-5 Normal 0-5 [facility] Comment on above: Performed By: #### 2 058964 ####KADEN IomXzcf1597 [place] [address] UA Urobilinogen 2.0 mg/dL Abnormal [facility] Comment on above: Performed By: #### 2 391297 ####KADEN BairdKsdPrxx8268 [place] [address] UA WBC >50 Abnormal 0-5 [facility] Comment on above: Performed By: #### 2 902094 ####KADEN BairdDeuJpzw8008 [place] [address] Urine, color Yellow Normal Yellow [facility] Comment on above: Performed By: #### 2 155835 ####KADEN BairdQnpHqre8341 [place] [address] Urine, erythrocytes 20-50 Abnormal 0-3 [facility] Comment on above: Performed By: #### 2 001249 ####KADEN [address] [place] [address] Urine, glucose Negative Normal Negative [facility] Comment on above: Performed By: #### 2 943182 ####KADEN [address] [place] [address] Urine, ketones presence Trace Normal [facility] Comment on above: Performed By: #### 2 140513 ####KADEN BairdIspNoln3545 [place] [address] Urine, urobilinogen Negative Normal Negative [facility] Comment on above: Performed By: #### 2 613830 ####KADEN BairdOpdPvwp7761 [place] [address] eGFRon 12-12-2017 eGFR AA >60 Normal [facility] Comment on above: Order Comment: Order Added by Discern Expert. Performed By: #### 2 219087 ####KADEN BairdGinFame0534 [place] [address] eGFR (non-black) mL/min/{1.73_m2} Normal [facility] Comment on above: Order Comment: Order Added by Discern Expert. Performed By: #### 2 216791 ####KADEN BairdDxmXwxx1250 [place] [address] HISTORY PHYSICALon 8 HISTORY PHYSICAL HNO ID: [id number] thor: Clara Olivia WolfeService: Maternal MedicineAuthor Type: PhysicianType: HANDPFiled: 12/02/2017 9:04 AMNote Text:[facility] DOCUMENTDISCHARGE SUMMARYPatient Name: Zuleika Gtz Date: [...] 4 weeks with provider.Clara Jama, DO Normal [facility] PROGRESSon 12-02-2017 PROGRESS HNO ID: [id number] thor: Marie Lema (Res) LendeService: ObstetricsAuthor Type: [...] with more than 50% of the total zpcy-zx-ohrervah of the visit in counseling / coordination [...] decreasing.Ambulating without difficulty.OBJECTIVE:PHYSI GEN EXAM:Heart: RR, S1, W5Cdwoh: clear to auscultationAbdomen: Soft Bowel sounds present [...] December 02, 2017 : 5:[address] [facility] SOCIAL WORKon 12-02-2017 SOCIAL WORK HNO ID: [id number] thor: Meredith Jackson (Sw)oService: Social WorkAuthor Type: Social WorkerType: Social WorkFiled: 12/02/2017 12:25 PMNote Text:SOCIAL WORK CONSULT NOTESERVICE DATE: 12/02/2017SERVICE TIME: 1015Referred by: Jose for visit:Maternal/Infant - adjustment to conditionLiving Arrangement: HomeLives With: PartnerFinancial Resources: DisabledPrimary Contact:Extended Emergency Contact Information DARRELL BRANCH IIPratrium health kings mountainadelaida Emergency Contact: No,ContactRelation: OtherSupportive: YesOther Important Patient [...] hospital. (FOBparents are Anamika Munoz of [address] [facility] , [facility]).Per pt and FOB, all needed baby supplies and equipment are at the [facility] and a nursery has been set up.Per pt, name of baby girl is Martha Branch.Pt states she is on SSI and WIC.Pt shares that she is in ongoing counseling at [facility] in [place] and has appointments 2 x per month.Discussed with pt and FOB signs and sx of depression; safe babysleep and discussed ways to deal with crying . Pt again states sheis going to rely on her support system.No additional issues identified at this time. Encouraged pt and FOB toutilize services through [facility]. Providedcontact information.Outcome/Recomm endations:[facility]istance through [facility] spent (minutes): 60SIGNATURE: CARLA Goncalves PATIENT NAME: Zuleika Hernandez: December 02, 2017 : 11:10 AM PAGER/CONTACT#: [facility] ANES INTRAOPon 12-01-2017 ANES INTRAOP HNO ID: [id number] thor: Terrance Lockhartervice: AnesthesiologyAuthor Type: Nurse AnesthetistType: Anesthesia IntraOpFiled: 12/01/2017 9:41 AMNote Text:ANALGESIA PROGRESS RECORDCATHETER REMOVAL/END OF CASESERVICE DATE: 12/01/2017REMOVAL DATE AND TIME: 11/30/2017, 1953DELIVERY DATE AND TIME: 11/30/2017 at 5:49 PMCATHETER REMOVAL:Catheter Removal: See [facility]ITALMiky Nursing noteSIGNATURE: Terrance Contreras APRN.CRNA PATIENT NAME: Zuleika Hernandez: December 01, 2017 : 9:40 AM PAGER/CONTACT #: [facility] ANES Keke 12-01-2017 ANES POST HNO ID: [id number] thor: Terrance Leblanc) JohanngService: AnesthesiologyAuthor Type: Nurse [...] 2017 : 9:42 AM PAGER/CONTACT #: [facility] PROGRESSon 12-01-2017 PROGRESS HNO ID: [id number] thor: Marie Lema (Joaquín) LendeService: ObstetricsAuthor Type: [...] decreasing.Ambulating without difficulty.OBJECTIVE:PHYSI GEN EXAM:Heart: RR, S1, C5Dlqot: clear to auscultationAbdomen: Soft Bowel sounds present [...] December 01, 2017 : 6:[address] [facility] ABO/Rh Confirmationon 2017 ABO group Nom (Bld) A Normal [facility] Comment on above: Performed By: #### A JESSIE #### [facility] [address] [place] [address] RH Type Positive Normal [facility] Comment on above: Performed By: #### A JESSIE #### [place] [address] ANES PREOPon 11-30-2017 ANES PREOP HNO ID: [id number] thor: Aaron Leblanc) EarleyService: AnesthesiologyAuthor Type: Nurse [...] of Sleep Apnea: DeniesHematocritDate Value Ref Range Wfvhzp4511/30/2017 32.3 (L) 34.1 - 44.9 % Final Platelet CountDate Value Ref Range Kwacrz5011/30/2017 193 182 - 369 thou/cmm Final Vitals: [...] as needed. Disp: Rfl:Inpatient medications reviewed in [facility].I have interviewed and examined the patient. I have reviewed the medicalrecord , pertinent consults and/or the pre-anesthesia evaluation,pertinent labs, and test results.Significant changes in the patient's condition since the History andPhysical, not otherwise documented in primary service progress notes: [facility] contains updated information obtained within 48 hours ofSurgery/Procedure.SIGNAT URE: Hema Cuellar APRN.CRNA PATIENT NAME: Zuleika LambATE: November 30, 2017 : 12:13 PM : [address] [facility] Auto Diffon 11-30-2017 Basophils Auto #/vol (Bld) 0.1 E3/mcL Normal 0.0-0.2 [facility] Comment on above: Order Comment: Order Added by Discern Expert. Performed By: #### 2 778935 ####KADEN BairdBcdBxtm6217 [place] [address] Basophils/100 WBC Auto (Bld) 0.9 % Normal 0.0-2.0 [facility] Comment on above: Order Comment: Order Added by Discern Expert. Performed By: #### 2 111599 ####KADEN BairdRtuOsgp8508 [place] [address] Eos Absolute 0.1 E3/mcL Normal 0.0-0.7 [facility] Comment on above: Order Comment: Order Added by Discern Expert. Performed By: #### 2 412745 ####KADEN BairdXihWxve3184 [place] [address] Eosinophils/100 leukocytes 1.0 % Normal 0.0-11.0 [facility] Comment on above: Order Comment: Order Added by Discern Expert. Performed By: #### 2 756863 ####KADEN BairdAehVlea9715 [place] [address] Lymphocytes 2.0 E3/mcL Normal 1.2-3.4 [facility] Comment on above: Order Comment: Order Added by Discern Expert. Performed By: #### 2 651425 ####KADEN BairdIqgPlcx7484 [place] [address] Lymphocytes/100 leukocytes 22.1 % Normal 20.0-55.0 [facility] Comment on above: Order Comment: Order Added by Discern Expert. Performed By: #### 2 227066 ####KADEN BaidrNqyArxu9111 [place] [address] Barren Absolute 0.7 E3/mcL Normal 0.0-0.7 [facility] Comment on above: Order Comment: Order Added by Discern Expert. Performed By: #### 2 538316 ####KADEN BairdXdoCvom8726 [place] [address] Monocytes/100 leukocytes 7.5 % Normal 0.0-10.0 [facility] Comment on above: Order Comment: Order Added by Discern Expert. Performed By: #### 2 844037 ####KADEN [address] [place] [address] Neutro Absolute 6.1 E3/mcL Normal 1.4-6.5 [facility] Comment on above: Order Comment: Order Added by Discern Expert. Performed By: #### 2 515457 ####KADEN BairdEdlHfpw2030 [place] [address] Neutro Auto 68.5 % Normal 37.0-75.0 [facility] Comment on above: Order Comment: Order Added by Discern Expert. Performed By: #### 2 798222 ####KADEN [address] [place] [address] CBC w/ Auto Diffon 8 Erythrocyte distribution width Auto Ratio (RBC) 14.3 % Normal 11.5-14.5 [facility] Comment on above: Performed By: #### 2 931660 ####KADEN BairdVztKdbp3774 [place] [address] Erythrocytes (RBC) 4.34 E6/mcL Normal 3.90-5.40 [facility] Comment on above: Performed By: #### 2 916944 ####KADEN BairdChzTuit2884 [place] [address] Hematocrit (HCT) 35.1 % Low 36.0-48.0 [facility] Comment on above: Performed By: #### 2 978333 ####KADEN BairdCkjXmet1019 [place] [address] Hemoglobin mass conc (Bld) 11.6 g/dL Low 12.0-16.0 [facility] Comment on above: Performed By: #### 2 161359 ####KADEN ZorLidt1716 [place] [address] MCH 26.6 pg Low 27.0-31.0 [facility] Comment on above: Performed By: #### 2 853278 ####KADEN BairdIgqQpmv1580 [place] [address] MCHC mass conc (RBC) 32.9 g/dL Low 33.0-37.0 [facility] Comment on above: Performed By: #### 2 908968 ####KADEN [address] [place] [address] MCV 80.9 fL Normal 78.0-100.0 [facility] Comment on above: Performed By: #### 2 958091 ####KADEN [address] [place] [address] Platelet mean volume (PMV) 7.6 fL Normal 7.4-11.0 [facility] Comment on above: Performed By: #### 2 328991 ####KADEN [address] [place] [address] Platelets 217 E3/mcL Normal 130-400 [facility] Comment on above: Performed By: #### 2 355995 ####KADEN [address] [place] [address] WBC (Leukocytes) 8.8 E3/mcL Normal 3.6-11.0 [facility] Comment on above: Performed By: #### 2 838560 ####KADEN [address] [place] [address] CONSULTon 11-30-2017 CONSULT HNO ID: [id number] thor: Marie Lema (Res) LendeService: ObstetricsAuthor Type: [...] T0 L0 SAB1 TAB0 Ectopic0 Multiple0 Live Dhceth3Dlgq of Baby 1: Not recorded Date: 2012 [...] pupils equal, no thyromegalyLungs: clearHeart: RR, S1, R1Mfzvbvd: soft, nontender, no massesUterus: soft, NTExtremities: 1+ [...] Epi prn4. FB soon5. [place] [address]. anomalies- prominent cisterna magna, bilateral periventrcularnodular heterotopia, [...] as . H/o tobacco abuseSigned out to [facility] for deliveryDr. Amado reviewed with Dr. MaldonadoSIGNATURE: Marie Hassan DO PATIENT NAME: Zuleika LambATE: November 30, 2017 : 6:49 AM PAGER/CONTACT #: [phone] [facility] HISTORY PHYSICALon 8 HISTORY PHYSICAL HNO ID: [id number] thor: Marie Lema (Res) JabiereService: ObstetricsAuthor Type: [...] T0 L0 SAB1 TAB0 Ectopic0 Multiple0 Live Yabzna8Rfmt of Baby 1: Not recorded Date: 2014 [...] pupils equal, no thyromegalyLungs: clearHeart: RR, S1, L7Qwsywze: soft, nontender, no massesUterus: soft, NTExtremities: 1+ [...] Epi prn4. FB soon5. [place] [address]. anomalies- prominent cisterna magna, bilateral periventrcularnodular heterotopia, [...] EF 55%.10. H/o maternal clubfoot-s/p repair as rsxbuq37. H/o tobacco abuseSigned out to [facility] for deliveryD/w Dr. AmadoSIGNATURE: Marie Hassan DO PATIENT NAME: Zuleika LambATE: November 30, 2017 : 6:49 AM PAGER/CONTACT #: [phone] [facility] Hemogramon 11-30-2017 Erythrocyte distribution width Ratio (RBC) 13.6 % Normal 11.7-14.4 [facility] Comment on above: Performed By: #### C BC1 #### [facility] [address] [place], [place] [address] Hematocrit Volume Fraction (Bld) 32.3 % Low 34.1-44.9 [facility] Comment on above: Performed By: #### C BC1 #### [facility] [address] [place] [address] Hemoglobin mass conc (Bld) 10.4 g/dL Low 11.2-15.7 [facility] Comment on above: Performed By: #### C BC1 #### [facility] [address] [place] [address] MCH Entitic mass (RBC) 26.4 pg Normal 25.6-32.2 [facility] Comment on above: Performed By: #### C BC1 #### [facility] [address] [place] [address] MCHC mass conc (RBC) 32.2 % Normal 31.6-34.8 [facility] Comment on above: Performed By: #### C BC1 #### [facility] [address] [place] [address] MCV Entitic volume (RBC) 82.0 fL Normal 79.4-94.8 [facility] Comment on above: Performed By: #### C BC1 #### [facility] [address] [place] [address] Platelet mean volume Entitic volume (Bld) 9.9 fL Normal 9.4-12.3 [facility] Comment on above: Performed By: #### C BC1 #### [facility] [address] [place] [address] Platelets #/vol (Bld) 193 thou/cmm Normal 182-369 [facility] Comment on above: Performed By: #### C BC1 #### [facility] [address] [place] [address] RBC #/vol (Bld) 3.94 mil/cmm Normal 3.93-5.22 [facility] Comment on above: Performed By: #### C BC1 #### [facility] [address] [place] [address] RDW SD 40.6 fl Normal 36.4-46.3 [facility] Comment on above: Performed By: #### C BC1 #### [facility] [address] [place] [address] WBC #/vol (Bld) 9.85 thou/cmm Normal 3.98-10.04 [facility] Comment on above: Performed By: #### C BC1 #### [facility] [address] [place] [address] LD NOTEon 11-30-2017 LD NOTE HNO ID: [id number] thor: Marie Lema (Res) LendeService: ObstetricsAuthor Type: ResidentType: LANDD Delivery NoteFiled: 11/30/2017 6:19 PMNote Text: -------Attestation signed by Serenity Maldonado MD at 12/01/2017 6:04 PMI saw and evaluated the patient. I reviewed the resident's note and agree,except that patient seen by [facility] (patient has FAS, fetus with multipleanomlaies) service, consult placed to [facility] for management of labor AND delivery.Essential primip presented at 39w with PROM, had Pugh balloon AND Pitocin foraugmentaion. Late in labor noted tachycardia that improved with IVFB ANDTylenol (mother rico had elevated temp but felt warm). [facility] [place] [facility] team for evaluation (was allowed tohave delivery to abdomen AND 30 sec delay for cord clamping). Pushed well AND hadSVD of a viable female infant (APGARS 8,9, weight of 3200g/7#1oz) over intactperineum. Uterus slightly boggy after delivery, responded to massage AND Pitocininfusion, EBL ~500cc.Serenity Maldonado MD ----OBSTETRICSDELIVERY SUMMARY - VAGINAL DELIVERYGestational Age at Delivery: 60j3jDothndm Date: 11/30/2017Service Time: 1800Keegan, Bg Zuleika Dillard [[id number]]Labor EventsRupture Date: 11/30/17Rupture Time: 224Rupture Type: PROMFluid [...] 11/30/2017 5:55 PMRemoval: SpontaneousAppearance: IntactAnesthesia:Method: EpiduralMeasurements, Apgars:Code [place] Called: YesType of Code [place] Team Needed: PlannedA digital sweep of the [...] November 30, 2017 : 6:[address] [facility] NURSING PROGon 11-30-2017 NURSING PROG HNO ID: [id number] thor: Marguerite (Rn) ANEUDY Albarranervice: (none)Author Type: Registered NurseType: Nursing Progress NoteFiled: 11/30/2017 7:06 PMNote Text: INTRODUCED SELF TO PATIENT AND SUPPORT PERSONS. PLAN OF CARE DISCUSSED.ASSESSMENT PERFORMED. PATIENT DENIES COMPLAINTS. Normal [facility] NURSING PROG HNO ID: [id number] thor: Darcie (Rn) ANEUDY Landeroservice: NursingAuthor Type: Registered NurseType: Nursing Progress NoteFiled: 11/30/2017 10:03 AMNote Text:Patient up to shower for comfort. Boyfriend at side. On telemetrymonitors. RN remains in room. FHR difficult to maintain continuoustracing Normal [facility] NURSING PROG HNO ID: [id number] Author: Norah (Rn) KARRI Eastman Service: Nursing Author Type: Registered Nurse Type: Nursing Progress Note Filed: 11/30/2017 7:18 AM Note Text: Report given to Darcie DURAN and care transferred at this time. Normal [facility] PROCEDUREon 11-30-2017 PROCEDURE HNO ID: [id number] thor: Aaron (Marketing Executive) EarleyService: AnesthesiologyAuthor Type: Nurse AnesthetistType: ProceduresFiled: 11/30/2017 [...] Catheter in Epidural Space: 5 cmInterspace: approximately L2-F5Jkmujt of Attempts: 1Wet Tap Complication: NoDural Puncture [...] documentation for additional vitals.SIGNATURE: Hema Cuellar APRN.RN [facility] PATIENT NAME: Zuleika LambATE: November 30, 2017 : 12:27 PM PAGER/CONTACT #: [facility] PROGRESSon 11-30-2017 PROGRESS HNO ID: [id number] thor: Marie Lema (Res) JabiereService: ObstetricsAuthor Type: ResidentType: Progress NotesFiled: 11/30/2017 5:04 PMNote Text:UpdatePatient is pushing in the OR. Cat I FHRT with baseline around 160s. updated and in house.Franki Neri 2017 5:04 PM [facility] PROGRESS HNO ID: [id number] Author: Darcie (Rn) KARRI Landeros Service: Nursing Author Type: Registered Nurse Type: Progress Notes Filed: 11/30/2017 3:29 PM Note Text: Patient feeling pressure, cervical exam 9.5 cm. NICU notified. Patient feels warm, but temp 36.9. [facility] PROGRESS HNO ID: [id number] thor: Marie Lema (Res) Tristanrvice: ObstetricsAuthor Type: [...] pt comfortable4. s/p FB5. [place] [address]. anomalies- prominent cisterna magna, bilateral periventrcularnodular heterotopia, [...] EF 55%.10. H/o maternal clubfoot-s/p repair as zixlhf26. H/o tobacco abuse12. Cat II- Isolate late decelerations. Moderate variability. Continuingto make cervical change. Not on Cat II protocol.SIGNATURE: Marie Hassan DO PATIENT NAME: Zuleika LambATE: November 30, 2017 : 1:35 PM PAGER/CONTACT #: [phone] [facility] PROGRESS HNO ID: [id number] thor: Yolanda (Joaquín) SnyderService: ObstetricsAuthor Type: ResidentType: [...] pt comfortable4. s/[place] [address]. anomalies- prominent cisterna magna, bilateral periventrcularnodular heterotopia, [...] 2017 : 1:11 PM PAGER/CONTACT #: [phone] [facility] PROGRESS HNO ID: [id number] thor: Yolanda (Joaquín) GabrielaerService: ObstetricsAuthor Type: ResidentType: [...] Pit per protocol3. [place] [address]. [place] [address]. anomalies- prominent cisterna magna, bilateral periventrcularnodular heterotopia, [...] EF 55%.10. H/o maternal clubfoot-s/p repair as ewbxtg08. H/o tobacco abuseSIGNATURE: Yolanda Barbosa DO PATIENT NAME: Zuleika BecerrilnDATE: November 30, 2017 : 11:05 AM PAGER/CONTACT #: [phone] [facility] PROGRESS HNO ID: [id number] Author: Darcie (Rn) KARRI Landeros Service: Nursing Author Type: Registered Nurse Type: Progress Notes Filed: 11/30/2017 10:35 AM Note Text: Unable to find labwork for chart. [facility] PROGRESS HNO ID: [id number] thor: Marie Lema (Res) JabiereService: ObstetricsAuthor Type: [...] Pit per protocol3[place] [address]. [place] [address]. anomalies- prominent cisterna magna, bilateral periventrcularnodular heterotopia, [...] EF 55%.10. H/o maternal clubfoot-s/p repair as tibusu99. H/o tobacco abuse?SIGNATURE: Marie Hassan DO PATIENT NAME: Zuleika LambATE: November 30, 2017 : 10:31 AM PAGER/CONTACT #: [phone] [facility] PROGRESS HNO ID: [id number] thor: Darcie [place]) ANEUDY Landeroservice: NursingAuthor Type: Registered NurseType: Progress NotesFiled: 11/30/2017 10:13 AMNote Text:Patient remains in shower. RN and boyfriend at side. EFM on telemetryand adjusted while patient in shower. Difficult to keep baby on. Normal [facility] PROGRESS HNO ID: [id number] thor: Yolanda (Res) SnyderService: ObstetricsAuthor Type: ResidentType: Progress NotesFiled: 11/30/2017 7:35 AMNote Text:In to place FB. Pt tolerated procedure well. Continues to leak clearfluid. Pt uncomfortable with contractions.Cat I FHT, reactive with accelsToco: 2-5 minsHeather Romina, PGY-1Obstetrics and GynecologyPager [phone]/7:[address] [facility] Type and Screenon 11-30-2017 ABO group Nom (Bld) A Normal [facility] Comment on above: Performed By: #### T &S #### [place] [address] Comment See Below [facility] Comment on above: Result Comment: Scre en &/or Xmatch expires in 3 days at 12 midnight. Redraw patient at that time. Performed By: #### T &S #### [place] [address] RH Type Positive Normal [facility] Comment on above: Performed By: #### T &S #### [place] [address] Progress Noteon 11-28-2017 Spout Liner Helper Authentication Interface Message Text Routine VisitSubjective: Zuleika Villalta is being seen today for her obstetrical visit. She is at 68c3zzsdeiklax. Patient reports no complaints. Movement: normal. She [...] Serial growth ultrasounds every [address] [facility] HospitalInduction at 39 weeks; CYTOTEC IOL 18 at 5 pm at [facility]. Pre-Procedure formdone (CG)GBS culture: neg 11/07/17Contraception: Considering [...] IVC/S[facility] S/P [facility] POC reviewedShe would like her follow up and contraception with Dr. Ivan.The total patient time of the visit was 15 minutes, of which greater than 50% ofthe time was spent counseling and coordinating care. Normal [facility] Progress Noteon 11-22-2017 Spout Liner Helper Authentication Interface Message Text [facility] plan of care faxed to [facility] in event pt would arrive for urgent management. Normal [facility] Progress Noteon 11-21-2017 Spout Liner Helper Authentication Interface Message Text Routine VisitSubjective: Zuleika Villalta is being seen today for her obstetrical visit. She is at 11p0jiwqyvcgyk. Patient reports that she went to [facility] last night due toconcerns for labor. She [...] Serial growth ultrasounds every 4 weeks[address]DELIVERY PLANHospital: [facility] HospitalInduction at 39 weeks; CYTOTEC IOL 618-18 at 5 pm at [facility]. Pre-Procedure formdone (CG)GBS culture: neg 11/07/17Contraception: Considering [...] scheduled for IOL on12/02/17.Oksana amado MD Normal [facility] Progress Noteon 11-12-2017 Spout Liner Helper Authentication Interface Message Text Call from [facility] that pt presented there in labor. [facility] plan of care and ACOGs faxed by Toan Chen. Provided after hours MFM number provided. Normal [facility] Group B Strep Cultureon 10-16 Group B Strep Culture Group B Strep Cult ure: No Group B Streptococci isolated. Source: VAG Collected: 11/07/17 09:00 Site: Vaginal/Rectal Received : 11/07/17 22:01Group B Strep Culture FINAL 11/10/17 08:34 No Group B Streptococci isolated. Normal [facility] Comment on above: Performed By: #### [facility] ####[address] [place], [place] [phone] Progress Noteon 11-07-2017 Spout Liner Helper Authentication Interface Message Text Routine VisitSubjective: Zuleika Villalta is being seen today for her obstetrical visit. She is at 71o9drbafypmnl. Patient reports occasional nausea. No emesis. She [...] Serial growth ultrasounds every 4 weeks.DELIVERY PLANHospital: St. [facility] HospitalInduction at 39 weeksGBS culture: collected and [...] OB visit and BPP.Oksana Amado MD Normal [facility] Progress Noteon 10-24-2017 Spout Liner Helper Authentication Interface Message Text Routine VisitSubjective: Zuleika [...] Serial growth ultrasounds every 4 weeks.DELIVERY PLANHospital: [facility]. [facility] HospitalInduction at 39 weeksGBS culture:Contraception: Considering LARC [...] and coordinating care.Marco Antonio Antonio DO Normal [facility] Progress Noteon 10-15-2017 Spout Liner Helper Authentication Interface Message Text Ped selection made. Updated prenatals Normal [facility] Progress Noteon 10-08-2017 Spout Liner Helper Authentication Interface Message Text Thank you for [...] size. There was a patent foramen ovale, lnirqtnsp-cn-qheh shunt.Tricuspid valve:Normal tricuspid valve. There was normal [...] fetuses and in fetuses with CHD and fjsqvgdqpupak89o82, the ratio being below 0.3 )Impression and recommendations.1) Abnormal 3-vessel view, ascending aorta was moderately dilated. 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 thymic thoracic ratio (TT-ratio)=0.1 ( TT-ratio 0.44 in normal fetuses and in fetuses with CHD and kaddtmqdycsry34u87, the ratio being below 0.3 )5) Normal [...] treatments, follow up fetalechocardiograms and follow ups.10) [place] Echocardiogram prior to the discharge from the nursery or earlier ifcardiac condition/status changes in any way. follow up and treatmentshould be determined on the basis of the findings on the initial echocardiogram.Counseling and/or coordination of care was greater than 35 minutes which is morethan 50% of the total time of 60 minutes spent on the encounter. Normal [facility] Spout Liner Helper Authentication Interface Message Text Initial VisitSubjective: Zuleika [...] Serial growth ultrasounds every 4 weeks.DELIVERY PLANHospital: [facility]. [facility] HospitalInduction at 39 weeksGBS culture:Contraception:TDAP recommended Constipation [...] weeks for OB visit and BPP in [place].Oksana Amado MD Normal [facility] Cytogenomic Microarray Nivia sis of Bloodon 09-10-2017 Cytogenomic Microarray Analysis of Blood SEE BELOW Normal [facility] Comment on above: Result Comment: SPEC IMEN: BLOODCLINICAL INFORMATION: Learning disability[F81.9]TEST: CYTOGENOMIC MICROARRAY ANALYSISRESULT SUMMARY:Normal femaleNOMENCLATURE:arr(1-22,X)b5KXGAHUWYBTAIEY & COMMENTS:The cytogenomics microarray analysis indicated no [...] whole genome microarray analysis was performed the FDA-clearedHowAboutWe(RDVDPlay Dx platform, which contains approximately 2.7million markers, including 1,953,246 unique non-polymorphic copy numberprobes and 743,304 single nucleotide polymorphism (SNP) probes. Thegenome-wide functional resolution of this assay is approximately 25 kbfor deletions and 50 kb for duplications. This microarray andassociated software (Chromosome Analysis Suite Dx) were manufactured [employer] and used by the Cytogenetics and Molecular DiagnosticsLaboratories of [facility] for the purpose ofidentifying DNA [...] further information regarding intendeduse and limitations, see [email or web address].Note: The Cytogenetics Laboratory has this patient's blood [...] additional testing. 09/19/2017 BIGG GARCIA, PH.D., [facility], [facility] 09/19/2017 Performed By: #### M CRY1 ####[facility] [place], [place] [phone] MRI (SINGLE)on 018 MRI (SINGLE) MRI (SINGLE)CL [...] Dr. AJ CAMILO at 09/10/2017 10:21 Normal [facility] Progress Noteon 09-10-2017 Spout Liner Helper Authentication Interface Message Text The total patient time of the visit was 15 minutes, of which greater than 50% of the time was spent counseling and coordinating care. Normal [facility] Auto Diffon 09-03-2017 Basophils Auto #/vol (Bld) 0.1 E3/mcL Normal 0.0-0.2 [facility] Comment on above: Order Comment: Order Added by Discern Expert. Performed By: #### 2 [id number] ####KADEN [address] [place] [address] Basophils/100 WBC Auto (Bld) 0.5 % Normal 0.0-2.0 [facility] Comment on above: Order Comment: Order Added by Discern Expert. Performed By: #### 2 [id number] ####KADEN [address] [place] [address] Eos Absolute 0.0 E3/mcL Normal 0.0-0.7 [facility] Comment on above: Order Comment: Order Added by Discern Expert. Performed By: #### 2 985319 ####KADEN [address] [place] [address] Eosinophils/100 leukocytes 0.4 % Normal 0.0-11.0 [facility] Comment on above: Order Comment: Order Added by Discern Expert. Performed By: #### 2 926581 ####KADEN [address] [place] [address] Lymphocytes 1.3 E3/mcL Normal 1.2-3.4 [facility] Comment on above: Order Comment: Order Added by Discern Expert. Performed By: #### 2 081410 ####KADEN [address] [place] [address] Lymphocytes/100 leukocytes 13.1 % Low 20.0-55.0 [facility] Comment on above: Order Comment: Order Added by Discern Expert. Performed By: #### 2 049292 ####KADEN [address] [place] [address] Barren Absolute 0.4 E3/mcL Normal 0.0-0.7 [facility] Comment on above: Order Comment: Order Added by Discern Expert. Performed By: #### 2 081665 ####KADEN [address] [place] [address] Monocytes/100 leukocytes 4.3 % Normal 0.0-10.0 [facility] Comment on above: Order Comment: Order Added by Discern Expert. Performed By: #### 2 980660 ####KADEN [address] [place] [address] Neutro Absolute 8.4 E3/mcL High 1.4-6.5 [facility] Comment on above: Order Comment: Order Added by Discern Expert. Performed By: #### 2 496536 ####KADEN [address] [place] [address] Neutro Auto 81.7 % High 37.0-75.0 [facility] Comment on above: Order Comment: Order Added by Discern Expert. Performed By: #### 2 436570 ####KADEN [address] [place] [id number] CBC w/ Auto Diffon 8 Erythrocyte distribution width Auto Ratio (RBC) 13.1 % Normal 11.5-14.5 [facility] Comment on above: Performed By: #### 2 495515 ####KADEN [address] [place] [address] Erythrocytes (RBC) 3.90 E6/mcL Normal 3.90-5.40 [facility] Comment on above: Performed By: #### 2 888996 ####KADEN [address] [place] [address] Hematocrit (HCT) 34.7 % Low 36.0-48.0 [facility] Comment on above: Performed By: #### 2 306863 ####KADEN [address] [place] [address] Hemoglobin mass conc (Bld) 11.8 g/dL Low 12.0-16.0 [facility] Comment on above: Performed By: #### 2 969978 ####KADEN [address] [place] [address] MCH 30.3 pg Normal 27.0-31.0 [facility] Comment on above: Performed By: #### 2 042632 ####KADEN [address] [place] [id number] MCHC mass conc (RBC) 34.2 g/dL Normal 33.0-37.0 [facility] Comment on above: Performed By: #### 2 539488 ####KADEN [address] [place] [address] MCV 88.8 fL Normal 78.0-100.0 [facility] Comment on above: Performed By: #### 2 116575 ####KADEN [address] [place] [id number] Platelet mean volume (PMV) 7.3 fL Low 7.4-11.0 [facility] Comment on above: Performed By: #### 2 953890 ####KADEN [address] [place] [address] Platelets 218 E3/mcL Normal 130-400 [facility] Comment on above: Performed By: #### 2 442057 ####KADEN [address] [place] [address] WBC (Leukocytes) 10.2 E3/mcL Normal 3.6-11.0 [facility] Comment on above: Performed By: #### 2 429078 ####KADEN [address] [place] [address] Gest Scr Glu 1 Hron 09-04-19 18 Glucose mass conc 113 mg/dL Normal 70-140 [facility] Comment on above: Performed By: #### 2 759135 ####KADEN [address] [place] [address] FISH Probeon 08-13-2017 Protein mass conc SEE BELOW Normal [facility] Comment on above: Result Comment: SPEC IMEN: BLOOD - [id number] INFORMATION:TEST: FISH Analysis of the DiGeorge/VCFS Region [...] Metaphase images: 2The Vysis LSI DARREN Spectrum [place] Probe contains the DARREN gene (3'non-coding region of TUPLE1, M19S902, and T99F3717. The Vysis LSI ARSAspectrum Green Probe includes [...] performance characteristics determinedby the Cytogenetics Laboratory of [facility]. It hasnot been cleared or approved [...] Med Barbara 66:250-256,1995. BIGG GARCIA, PH.D., [facility] 08/16/2017 Performed By: #### F [facility] ####[address] [phone] Progress Noteon 08-13-2017 Spout Liner Helper Authentication Interface Message Text Met with patient [...] share information with FTC team, OB and trimmer press clippings signed. Pt plans to deliver in [place] with [facility]. Currently with Dr. Shekhar Dyson.Assembler Arranger is undecided. [facility] provided and discussed importance ofselection prior [...] was spent counseling and coordinating care. Normal [facility] Spout Liner Helper Authentication Interface Message Text Thank you for [...] size. There was a patent foramen ovale, felewsefk-tj-iaoj shunt.Tricuspid valve:Normal tricuspid valve. There was normal [...] 60 minutes spent on the encounter. Normal [facility] Progress Noteon 07-18-2017 Spout Liner Helper Authentication Interface Message Text [facility] MATERNAL- MEDICINE CONSULTReferring/Requestin g Provider: VINI [...] no palpitations. She usually doesnot see a sampler radioactive waste, but did have a recent echo due [...] a child 07/18/2017 Consider evaluation with social media assistant to assess for any needs duringpregnancy or after. Will have genetic consult with [facility] evaluation. cardiac anomaly complicating , antepartum 07/18/2017 Dilated aortic root seen on ultrasound along with large umbilical cordvarix, dolichocephaly DW Dr. Zazueta, verbal order to refer to [facility] Will be scheduled with pediatric cardiology. Also, patient and family members have a history of learning disabilities,including an individual learning plan in school. She will talk to her familymembers and bring as much information as is available for her genetics consult.She has transportation to [place] and [facility]The total patient time of the visit was 30 minutes, of which was greater than50% of the time was spent counseling and coordinating care. Normal [facility] IGP W/hpv Rfx [id number] 05-07 Diagnosis: See Ref Lab Report Normal [facility] Comment on above: Order Comment: Thin Prep. Performed By: #### 2 [id number] ####KADEN [address] [place] [address] C Urineon 05-03-2017 C Urine Final Report: Normal skin alonso isolated Normal [facility] Comment on above: Performed By: #### 2 [id number] ####KADEN [address] [place] [address] RPRon 05-03-2017 RPR Ql Non-Reactive Normal Non-Reacti ve [facility] Comment on above: Performed By: #### 2 914656 ####KADEN [address] [place] [address] Hep Bs Agon 05-02-2017 BSA (Body Surface Area) Negative Normal Negative [facility] Comment on above: Result Comment: Perf ormed At: CB [facility] [address] [place], [place] [id number] Vincent PhD Ph:[phone] Performed By: #### 2 967631 ####KADEN [address]ud[address] [place] [address] ABO/Rh Echoon 05-01-2017 ABO/Rh E Interp... Positive Normal [facility] Comment on above: Performed By: #### 2 194515 ####KADEN [address] [place] [address] Antibody Screen Cap...on Screen Interp... Negative Normal [facility] Comment on above: Performed By: #### 2 954846 ####KADEN [address] [place] [address] Auto Diffon 05-01-2017 Basophils Auto #/vol (Bld) 0.0 E3/mcL Normal 0.0-0.2 [facility] Comment on above: Order Comment: Order Added by Discern Expert. Performed By: #### 2 291564 ####KADEN Urinalysis Manual [address] [place] [address] Basophils/100 WBC Auto (Bld) 0.4 % Normal 0.0-2.0 [facility] Comment on above: Order Comment: Order Added by Discern Expert. Performed By: #### 2 689904 ####KADEN Urinalysis Manual [address] [place] [address] Eos Absolute 0.1 E3/mcL Normal 0.0-0.7 [facility] Comment on above: Order Comment: Order Added by Discern Expert. Performed By: #### 2 232421 ####KADEN Urinalysis Manual [address] [place] [address] Eosinophils/100 leukocytes 0.7 % Normal 0.0-11.0 [facility] Comment on above: Order Comment: Order Added by Discern Expert. Performed By: #### 2 758544 ####KADEN Urinalysis Manual [address] [place] [address] Lymphocytes 1.8 E3/mcL Normal 1.2-3.4 [facility] Comment on above: Order Comment: Order Added by Discern Expert. Performed By: #### 2 943096 ####KADEN Urinalysis Manual [address] [place] [address] Lymphocytes/100 leukocytes 17.1 % Low 20.0-55.0 [facility] Comment on above: Order Comment: Order Added by Discern Expert. Performed By: #### 2 387908 ####KADEN Urinalysis Manual [address] [place] [address] Barren Absolute 0.5 E3/mcL Normal 0.0-0.7 [facility] Comment on above: Order Comment: Order Added by Discern Expert. Performed By: #### 2 854286 ####KADEN Urinalysis Manual [address] [place] [address] Monocytes/100 leukocytes 5.0 % Normal 0.0-10.0 [facility] Comment on above: Order Comment: Order Added by Discern Expert. Performed By: #### 2 428390 ####KADEN Urinalysis Manual [address] [place] [address] Neutro Absolute 8.0 E3/mcL High 1.4-6.5 [facility] Comment on above: Order Comment: Order Added by Discern Expert. Performed By: #### 2 224885 ####KADEN Urinalysis Manual [address] [place] [address] Neutro Auto 76.8 % High 37.0-75.0 [facility] Comment on above: Order Comment: Order Added by Discern Expert. Performed By: #### 2 196760 ####KADEN Urinalysis Manual [address] [place] [address] CBC w/ Auto Diffon 7 Erythrocyte distribution width Auto Ratio (RBC) 15.2 % High 11.5-14.5 [facility] Comment on above: Performed By: #### 2 980473 ####KADEN Urinalysis Manual [address] [place] [address] Erythrocytes (RBC) 4.90 E6/mcL Normal 3.90-5.40 [facility] Comment on above: Performed By: #### 2 [id number] ####KADEN Urinalysis Manual [address] [place] [address] Hematocrit (HCT) 41.1 % Normal 36.0-48.0 [facility] Comment on above: Performed By: #### 2 108668 ####KADEN Urinalysis Manual Pltgknqnft[address] [place] [address] Hemoglobin mass conc (Bld) 13.5 g/dL Normal 12.0-16.0 [facility] Comment on above: Performed By: #### 2 [id number] ####KADEN Urinalysis Manual Jljzzknbqs0601[address] [place] [address] MCH 27.5 pg Normal 27.0-31.0 [facility] Comment on above: Performed By: #### 2 998418 ####KADEN Urinalysis Manual Uxecplrcli[address] [place] [address] MCHC mass conc (RBC) 32.8 g/dL Low 33.0-37.0 [facility] Comment on above: Performed By: #### 2 286508 ####KADEN Urinalysis Manual Rknhmpxqpo[address] [place] [address] MCV 83.9 fL Normal 78.0-100.0 [facility] Comment on above: Performed By: #### 2 414040 ####KADEN Urinalysis Manual Xmdtpltgpc1334[address] [place] [address] Platelet mean volume (PMV) 8.0 fL Normal 7.4-11.0 [facility] Comment on above: Performed By: #### 2 372506 ####KADEN Urinalysis Manual Wyvcnutjpa[address] [place] [address] Platelets 246 E3/mcL Normal 130-400 [facility] Comment on above: Performed By: #### 2 574979 ####KADEN Urinalysis Manual Dsscomiocp965[address] [place] [address] WBC (Leukocytes) 10.4 E3/mcL Normal 3.6-11.0 [facility] Comment on above: Performed By: #### 2 087490 ####KADEN Urinalysis Manual Cfapvpnzqj4340[address] [place] [address] Chlamydia GC by PCRon 2016 Chlamydia by PCR. Not Detected Normal Not Detected [facility] Comment on above: Result Comment: Xper t CT/NG Assay performance has not been evaluated in patients less than 14 years of age. Performed By: #### 2 725623 ####KADEN WzdQqbu1387 [place] [id number] Gonorrhoeae by PCR Not Detected Normal Not Detected [facility] Comment on above: Result Comment: Xper t CT/NG Assay performance has not been evaluated in patients less than 14 years of age. Performed By: #### 2 087014 ####KADEN MmeNdvp0786 [place] [id number] HIV-1/2 Ag/Abon 05-01-2017 HIV-1/2 Ag/Ab Non-Reactive Normal Non-Reacti ve [facility] Comment on above: Performed By: #### 2 739010 ####KADEN Urinalysis Manual [address]rgzqlye[address] [place] [address] 24651 Rubella IgG Lvlon 05-01-2017 Rubella IgG Lvl 50.8 (POS) Normal [facility] Comment on above: Result Comment: <10I U/ml NON REACTIVE: NOT [id number] IU/ml RUBELLA SPECIFIC AB PRESENT, EVALUATEFURTHER TO DETERMINE IMMUNE STATUS >15 IU/ml REACTIVE, IMMUNE Performed By: #### 2 894484 ####KADEN RcqHkoh9731 [place] [address] Auto Diffon 04-22-2017 Basophils Auto #/vol (Bld) 0.1 E3/mcL Normal 0.0-0.2 [facility] Comment on above: Order Comment: Order Added by Discern Expert. Performed By: #### 2 711069 ####KADEN Urinalysis Manual Haszvbhuco1639[address] [place] [address] Basophils/100 WBC Auto (Bld) 0.6 % Normal 0.0-2.0 [facility] Comment on above: Order Comment: Order Added by Discern Expert. Performed By: #### 2 059173 ####KADEN Urinalysis Manual [address] [address] Eos Absolute 0.0 E3/mcL Normal 0.0-0.7 [facility] Comment on above: Order Comment: Order Added by Discern Expert. Performed By: #### 2 419947 ####KADEN Urinalysis Manual Sgbgoooedj[address] [place] [address] Eosinophils/100 leukocytes 0.2 % Normal 0.0-11.0 [facility] Comment on above: Order Comment: Order Added by Discern Expert. Performed By: #### 2 753994 ####KADEN Urinalysis Manual Stpqdcdyyw[address] [place] [address] Lymphocytes 1.5 E3/mcL Normal 1.2-3.4 [facility] Comment on above: Order Comment: Order Added by Discern Expert. Performed By: #### 2 899831 ####KADEN Urinalysis Manual Ykitdpmofv1946[address] [place] [address] Lymphocytes/100 leukocytes 10.8 % Low 20.0-55.0 [facility] Comment on above: Order Comment: Order Added by Discern Expert. Performed By: #### 2 044826 ####KADEN Urinalysis Manual Lgfslbdtec3525[address] [place] [address] Barren Absolute 0.6 E3/mcL Normal 0.0-0.7 [facility] Comment on above: Order Comment: Order Added by Discern Expert. Performed By: #### 2 090692 ####KADEN Urinalysis Manual Gmutnckebo1478[address] [place] [address] Monocytes/100 leukocytes 4.4 % Normal 0.0-10.0 [facility] Comment on above: Order Comment: Order Added by Discern Expert. Performed By: #### 2 040852 ####KADEN Urinalysis Manual Bjzsnwgrfh0613[address] [place] [address] Neutro Absolute 11.3 E3/mcL High 1.4-6.5 [facility] Comment on above: Order Comment: Order Added by Discern Expert. Performed By: #### 2 269789 ####KADEN Urinalysis Manual Gmfdhrqwbq13[address] [place] [address] Neutro Auto 84.0 % High 37.0-75.0 [facility] Comment on above: Order Comment: Order Added by Discern Expert. Performed By: #### 2 322769 ####KADEN Urinalysis Manual Mnztadxdaa0658[address] [place] [address] BMPon 04-22-2017 BUN/Creatinine Ratio Unable to calc Normal 5.4-30.0 [facility] Comment on above: Performed By: #### 2 071050 ####KADEN Urinalysis Manual Roteksctur354[address] [place] [address] Creatinine mg/dL Low 0.6-1.3 [facility] Comment on above: Performed By: #### 2 479960 ####KADEN Urinalysis Manual Fnrhduqgta7800[address] [place] [address] Urea nitrogen 7 mg/dL Normal 7-18 [facility] Comment on above: Performed By: #### 2 876746 ####KADEN Urinalysis Manual Dnakucanbc4817 [place] [address] Calcium 9.6 mg/dL Normal 8.4-10.2 [facility] Comment on above: Performed By: #### 2 184536 ####KADEN Urinalysis Manual Textchnzzu7721 [place] [address] Chloride 103 mmol/L Normal 98-107 [facility] Comment on above: Performed By: #### 2 545924 ####KADEN Urinalysis Manual Anuliciqqe0410[address] [place] [address] CO2 21.7 mmol/L Low 24.0-30.0 [facility] Comment on above: Performed By: #### 2 792080 ####KADEN Urinalysis Manual Xztctjctku6313[address] [place] [address] Glucose mass conc 89 mg/dL Normal 70-99 [facility] Comment on above: Performed By: #### 2 936550 ####KADEN Urinalysis Manual Foxfyjufuu2509[address] [place] [address] Potassium molar conc 3.6 mmol/L Normal 3.5-5.1 [facility] Comment on above: Performed By: #### 2 257476 ####KADEN Urinalysis Manual Vasjxrhepv064[address] [place] [address] Sodium 136 mmol/L Normal 136-145 [facility] Comment on above: Performed By: #### 2 369095 ####KADEN Urinalysis Manual Ekybuohxca5964[address] [place] [address] CBC w/ Auto Diffon 7 Erythrocyte distribution width Auto Ratio (RBC) 14.8 % High 11.5-14.5 [facility] Comment on above: Performed By: #### 2 140625 ####KADEN Urinalysis Manual Smjuoekcxf90224[address] [place] [address] Erythrocytes (RBC) 4.96 E6/mcL Normal 3.90-5.40 [facility] Comment on above: Performed By: #### 2 724017 ####KADEN Urinalysis Manual Khdskltmei2292 [place] [address] Hematocrit (HCT) 40.9 % Normal 36.0-48.0 [facility] Comment on above: Performed By: #### 2 881817 ####KADEN Urinalysis Manual Jkgavqrbhm6[address] [place] [address] Hemoglobin mass conc (Bld) 13.5 g/dL Normal 12.0-16.0 [facility] Comment on above: Performed By: #### 2 570108 ####KADEN Urinalysis Manual Yrpfwprhgu2669[address] [place] [address] MCH 27.2 pg Normal 27.0-31.0 [facility] Comment on above: Performed By: #### 2 712872 ####KADEN Urinalysis Manual Vxpzswhxvh[address] [place] [address] MCHC mass conc (RBC) 33.0 g/dL Normal 33.0-37.0 [facility] Comment on above: Performed By: #### 2 186075 ####KADEN Urinalysis Manual Mantyjfibf6865[address] [place] [address] MCV 82.4 fL Normal 78.0-100.0 [facility] Comment on above: Performed By: #### 2 057754 ####KADEN Urinalysis Manual Fxcqovfozt317[address] [place] [address] Platelet mean volume (PMV) 8.0 fL Normal 7.4-11.0 [facility] Comment on above: Performed By: #### 2 787015 ####KADEN Urinalysis Manual Qapyhenjrh1114[address] [place] [address] Platelets 237 E3/mcL Normal 130-400 [facility] Comment on above: Performed By: #### 2 285314 ####KADEN Urinalysis Manual Ebgqoccmgz2733[address] [place] [address] WBC (Leukocytes) 13.5 E3/mcL High 3.6-11.0 [facility] Comment on above: Performed By: #### 2 676506 ####KADEN Urinalysis Manual Herrizmjdu8930[address] [place] [address] UA Completeon 04-22-2017 UA Blood Negative Normal Negative [facility] Comment on above: Performed By: #### 2 115689 ####KADEN Urinalysis Manual Sxdxcfnakv5824 [place] [address] UA Ascorbic Acid 40 mg/dL High <=19 [facility] Comment on above: Performed By: #### 2 343581 ####KADEN Urinalysis Manual Rfqgzqunqv27[address] [place] [address] UA Bacteria 3+ /HPF Abnormal None [facility] Comment on above: Performed By: #### 2 784480 ####KADEN Urinalysis Manual Krncwkymkj7457[address] [place] [address] UA Clarity SltCloudy Abnormal Clear [facility] Comment on above: Performed By: #### 2 107088 ####KADEN Urinalysis Manual Hthznufsye2858[address] [place] [address] UA Leuk Est Negative Normal Negative [facility] Comment on above: Performed By: #### 2 866467 ####KADEN Urinalysis Manual Cnyceaxrty[address] [place] [address] UA Mucous Few Abnormal Trace [facility] Comment on above: Performed By: #### 2 333948 ####KADEN Urinalysis Manual Ruugkycmvt285[address] [place] [address] UA Nitrite Negative Normal Negative [facility] Comment on above: Performed By: #### 2 695947 ####KADEN Urinalysis Manual Hltvfgkigm08[address] [place] [address] UA pH 8.0 Normal 4.6-8.0 [facility] Comment on above: Performed By: #### 2 860306 ####KADEN Urinalysis Manual Qsumvpvsuu8867[address] [place] [address] UA Protein Negative Normal Negative [facility] Comment on above: Performed By: #### 2 089150 ####KADEN Urinalysis Manual Ipizowcmrf1630[address] [place] [address] UA Spec Grav 1.012 Normal 1.003-1.03 0 [facility] Comment on above: Performed By: #### 2 380179 ####KADEN Urinalysis Manual Zhzsgwlkqw70[address] [place] [address] UA Squam Epithelial 0-5 Normal 0-5 [facility] Comment on above: Performed By: #### 2 963347 ####KADEN Urinalysis Manual Vnlegccsys0438 [place] [address] UA Urobilinogen Negative Normal [facility] Comment on above: Performed By: #### 2 319704 ####KADEN Urinalysis Manual Hguzjurddb7094 [place] [address] UA WBC 0-5 Normal 0-5 [facility] Comment on above: Performed By: #### 2 074775 ####KADEN Urinalysis Manual Weuqaxxgad1649 [place] [address] Urine, color Yellow Normal Yellow [facility] Comment on above: Performed By: #### 2 840726 ####KADEN Urinalysis Manual Bzcyfxroxx310[address] [place] [address] Urine, glucose Negative Normal Negative [facility] Comment on above: Performed By: #### 2 875547 ####KADEN Urinalysis Manual Nugherqlvw1832[address] [place] [address] Urine, ketones presence 1+ Abnormal Negative [facility] Comment on above: Performed By: #### 2 013489 ####KADEN Urinalysis Manual Mynogezvfa05[address] [place] [address] Urine, urobilinogen Negative Normal Negative [facility] Comment on above: Performed By: #### 2 333652 ####KADEN Urinalysis Manual Yacmymmhyu[address] [place] [address] eGFRon 04-22-2017 eGFR AA >60 Normal [facility] Comment on above: Order Comment: Order added by Discern Expert. Performed By: #### 2 732249 ####KADEN Urinalysis Manual Txqbchdtsu2452 [place] [address] eGFR (non-black) mL/min/{1.73_m2} Normal [facility] Comment on above: Order Comment: Order added by Discern Expert. Performed By: #### 2 566307 ####KADEN Urinalysis Manual Xazxxdpfow[address] [place] [address] C Urineon 04-20-2017 C Urine Final Report: Normal skin alonso isolated Normal [facility] Comment on above: Performed By: #### 2 861679 ####KADEN Urinalysis Manual Lltnncrkyh1405 [place] [address] BMPon 04-18-2017 BUN/Creatinine Ratio 15.0 ratio Normal 5.4-30.0 [facility] Comment on above: Performed By: #### 2 731134 ####KADENMorelia BairdGimAdxb5927 [place] [address] Creatinine 0.6 mg/dL Normal 0.6-1.3 [facility] Comment on above: Performed By: #### 2 645909 ####KADENMorelia BairdGvdVokd3966 [place] [address] Urea nitrogen 9 mg/dL Normal 7-18 [facility] Comment on above: Performed By: #### 2 363375 ####KADENMorelia BairdEubIrpy3972 [place] [address] Calcium 9.6 mg/dL Normal 8.4-10.2 [facility] Comment on above: Performed By: #### 2 912648 ####KADENMorelia BairdCukNoaa0498 [place] [address] Chloride 102 mmol/L Normal 98-107 [facility] Comment on above: Performed By: #### 2 300824 ####KADENMorelia BairdUzfAkzb7746 [place] [address] CO2 23.3 mmol/L Low 24.0-30.0 [facility] Comment on above: Performed By: #### 2 607434 ####KADENMorelia BairdScdZbcf3898 [place] [address] Glucose mass conc 93 mg/dL Normal 70-99 [facility] Comment on above: Performed By: #### 2 076265 ####KADENMorelia BairdPwjSlho1021 [place] [address] Potassium molar conc 3.5 mmol/L Normal 3.5-5.1 [facility] Comment on above: Performed By: #### 2 718745 ####KADENMorelia BairdYxdGxrm8781 [place] [address] Sodium 136 mmol/L Normal 136-145 [facility] Comment on above: Performed By: #### 2 829908 ####KADENMorelia BairdHznHpnb9370 [place] [address] UA Completeon 04-18-2017 UA Blood Negative Normal Negative [facility] Comment on above: Performed By: #### 2 959187 ####KADEN Urinalysis Manual Kfcbncxskp[address] [place] [address] UA Amorph Chastity 2+ /HPF Abnormal None [facility] Comment on above: Performed By: #### 2 270006 ####KADEN Urinalysis Manual Lnvzvvxcww64[address] [place] [address] UA Ascorbic Acid 40 mg/dL High <=19 [facility] Comment on above: Performed By: #### 2 217869 ####KADEN Urinalysis Manual Fcxetyphok360[address] [place] [address] UA Clarity Cloudy Abnormal Clear [facility] Comment on above: Performed By: #### 2 702149 ####KADEN Urinalysis Manual Icdveozmfp0550[address] [place] [address] UA Leuk Est Negative Normal Negative [facility] Comment on above: Performed By: #### 2 875760 ####KADEN Urinalysis Manual Hientydhxt[address] [place] [address] UA Mucous Trace Abnormal Trace [facility] Comment on above: Performed By: #### 2 917208 ####KADEN Urinalysis Manual Zuaabzuifo[address] [place] [address] UA Nitrite Negative Normal Negative [facility] Comment on above: Performed By: #### 2 980186 ####KADEN Urinalysis Manual Iwomljslnk[address] [place] [address] UA pH 7.0 Normal 4.6-8.0 [facility] Comment on above: Performed By: #### 2 861542 ####KADEN Urinalysis Manual Vcaffiwbei5638[address] [place] [address] UA Protein Negative Normal Negative [facility] Comment on above: Performed By: #### 2 369215 ####KADEN Urinalysis Manual Xlvukwtsxj5100[address] [place] [address] UA Spec Grav 1.018 Normal 1.003-1.03 0 [facility] Comment on above: Performed By: #### 2 160601 ####KADEN Urinalysis Manual Bihqzdgdyd943[address] [place] [address] UA Squam Epithelial 0-5 Normal 0-5 [facility] Comment on above: Performed By: #### 2 644955 ####KADEN Urinalysis Manual Fpsgyecdds8877[address] [place] [address] UA Urobilinogen Negative Normal [facility] Comment on above: Performed By: #### 2 251705 ####KADEN Urinalysis Manual Cgsmuysbbj3018[address] [place] [address] Urine, color Yellow Normal Yellow [facility] Comment on above: Performed By: #### 2 224275 ####KADEN Urinalysis Manual Ashtnrbmby4[address] [place] [address] Urine, glucose Negative Normal Negative [facility] Comment on above: Performed By: #### 2 166469 ####KADEN Urinalysis Manual Ktwwyvkgvc786[address] [place] [address] Urine, ketones presence 2+ Abnormal Negative [facility] Comment on above: Performed By: #### 2 084750 ####KADEN Urinalysis Manual Xsbqrblffy127[address] [place] [address] Urine, urobilinogen Negative Normal Negative [facility] Comment on above: Performed By: #### 2 475552 ####KADEN Urinalysis Manual Mkdmdffjir[address] [place] [address] eGFRon 04-18-2017 eGFR (non-black) mL/min/{1.73_m2} Normal [facility] Comment on above: Order Comment: Order added by Discern Expert. Performed By: #### 1 8000060 ####KADEN IdgOtzm0383 [place] [address] eGFR AA >60 Normal [facility] Comment on above: Order Comment: Order added by Discern Expert. Performed By: #### 1 [id number] ####KADENMorelia BairdCjzLtgm9651 [place] [address] Auto Diffon 04-11-2017 Basophils Auto #/vol (Bld) 0.1 E3/mcL Normal 0.0-0.2 [facility] Comment on above: Order Comment: Order Added by Discern Expert. Performed By: #### 2 376889 ####KADEN BiardZpzYnvb2692 [place] [address] Basophils/100 WBC Auto (Bld) 0.7 % Normal 0.0-2.0 [facility] Comment on above: Order Comment: Order Added by Discern Expert. Performed By: #### 2 391085 ####KADEN BairdPlrGvta5457 [place] [address] Eos Absolute 0.0 E3/mcL Normal 0.0-0.7 [facility] Comment on above: Order Comment: Order Added by Discern Expert. Performed By: #### 2 045754 ####KADEN GeoHyac8716 [place] [address] Eosinophils/100 leukocytes 0.1 % Normal 0.0-11.0 [facility] Comment on above: Order Comment: Order Added by Discern Expert. Performed By: #### 2 252417 ####KADEN JoxRwqd0546 [place] [address] Lymphocytes 1.5 E3/mcL Normal 1.2-3.4 [facility] Comment on above: Order Comment: Order Added by Discern Expert. Performed By: #### 2 815049 ####KADEN ZqhEinu7049 [place] [address] Lymphocytes/100 leukocytes 17.2 % Low 20.0-55.0 [facility] Comment on above: Order Comment: Order Added by Discern Expert. Performed By: #### 2 898250 ####KADEN DotWzml0708 [place] [address] Barren Absolute 0.6 E3/mcL Normal 0.0-0.7 [facility] Comment on above: Order Comment: Order Added by Discern Expert. Performed By: #### 2 731475 ####KADEN OjpPzem8358 [place] [address] Monocytes/100 leukocytes 6.6 % Normal 0.0-10.0 [facility] Comment on above: Order Comment: Order Added by Discern Expert. Performed By: #### 2 096984 ####KADEN UjwVpeq7762 [place] [address] Neutro Absolute 6.7 E3/mcL High 1.4-6.5 [facility] Comment on above: Order Comment: Order Added by Discern Expert. Performed By: #### 2 826421 ####KADEN Luceroo1025 [place] [address] Neutro Auto 75.4 % High 37.0-75.0 [facility] Comment on above: Order Comment: Order Added by Discern Expert. Performed By: #### 2 297207 ####KADEN Luceroo1025 [place] [address] BMPon 04-11-2017 BUN/Creatinine Ratio 12.9 ratio Normal 5.4-30.0 [facility] Comment on above: Performed By: #### 2 756923 ####KADEN Bai1025 [place] [address] Creatinine 0.7 mg/dL Normal 0.6-1.3 [facility] Comment on above: Performed By: #### 2 540331 ####KADEN Bai1025 [place] [address] Urea nitrogen 9 mg/dL Normal 7-18 [facility] Comment on above: Performed By: #### 2 172456 ####KADEN BairdDevXojl0871 [place] [address] Calcium 9.5 mg/dL Normal 8.4-10.2 [facility] Comment on above: Performed By: #### 2 425916 ####KADEN BairdFtdQyyg8965 [place] [address] Chloride 105 mmol/L Normal 98-107 [facility] Comment on above: Performed By: #### 2 514678 ####KADEN BairdMpuNdfm3177 [place] [address] CO2 22.5 mmol/L Low 24.0-30.0 [facility] Comment on above: Performed By: #### 2 434911 ####KADEN BairdLiyCnaa2162 [place] [address] Glucose mass conc 92 mg/dL Normal 70-99 [facility] Comment on above: Performed By: #### 2 982367 ####KADEN BairdTguUplk9854 [place] [address] Potassium molar conc 3.6 mmol/L Normal 3.5-5.1 [facility] Comment on above: Performed By: #### 2 260790 ####KADENMorelia BairdQdoEmph8043 [place] [address] Sodium 137 mmol/L Normal 136-145 [facility] Comment on above: Performed By: #### 2 139152 ####KADEN PsfYktx6506 [place] [address] BhCG Quanton 04-11-2017 Beta hCG Qnt 8564.0 mIU/m Normal [facility] Comment on above: Result Comment: FEMA LE (NON-) & MALE <3 BORDERLINE 3 - 5 SUGGEST REPEAT TESTING FEMALE () 1 D - 1 WK 5 - 50 1 - 2 WK 50 - 500 2 - 3 WK 100 - 5000 3 - 4 WK 500 - 73961 4 - 5 WK 1000 - 51467 5 - 6 WK 68378 - 823336 6 - 8 WK 14319 - 199768 2 - 3 [place] [address] - 322023 Performed By: #### 2 157986 ####KADENMorelia BairdHeoMmql8202 [place] [address] CBC w/ Auto Diffon 7 Erythrocyte distribution width Auto Ratio (RBC) 13.9 % Normal 11.5-14.5 [facility] Comment on above: Performed By: #### 2 386656 ####KADENMorelia BairdJbtZflz1150 [place] [address] Erythrocytes (RBC) 4.63 E6/mcL Normal 3.90-5.40 [facility] Comment on above: Performed By: #### 2 995877 ####KADENMorelia BairdJasVald7582 [place] [address] Hematocrit (HCT) 38.2 % Normal 36.0-48.0 [facility] Comment on above: Performed By: #### 2 881267 ####KADENMorelia BairdZdsGhjc8637 [place] [address] Hemoglobin mass conc (Bld) 12.6 g/dL Normal 12.0-16.0 [facility] Comment on above: Performed By: #### 2 059482 ####KADENMorelia BairdTnsWvbt2546 [place] [address] MCH 27.2 pg Normal 27.0-31.0 [facility] Comment on above: Performed By: #### 2 534754 ####KADEN BairdLjmKppi8697 [place] [address] MCHC mass conc (RBC) 33.0 g/dL Normal 33.0-37.0 [facility] Comment on above: Performed By: #### 2 758735 ####KADEN BairdXtlVant0739 [place] [address] MCV 82.6 fL Normal 78.0-100.0 [facility] Comment on above: Performed By: #### 2 352801 ####KADEN BairdKpyCbfk4302 [place] [address] Platelet mean volume (PMV) 8.0 fL Normal 7.4-11.0 [facility] Comment on above: Performed By: #### 2 445078 ####KADEN Luceroo1025 [place] [address] Platelets 233 E3/mcL Normal 130-400 [facility] Comment on above: Performed By: #### 2 609941 ####KADEN BairdQduShnu3460 [place] [address] WBC (Leukocytes) 9.0 E3/mcL Normal 3.6-11.0 [facility] Comment on above: Performed By: #### 2 374331 ####KADEN BairdNyiIqju2179 [place] [address] UA Completeon 04-11-2017 UA Blood Negative Normal Negative [facility] Comment on above: Result Comment: High concentration of Ascorbic Acid present in urine. This may cause False Negative Occ Blood. Review microscopic results and patient's clinical symptoms. Performed By: #### 8 [id number] ####KADEN Urinalysis Automated Iitzdfidgk5181 [place] [address] UA Amorph Chastity 1+ /HPF Abnormal None [facility] Comment on above: Performed By: #### 8 [id number] ####KADEN Urinalysis Automated Arbxwef[address]38[address] [place] [id number] UA Ascorbic Acid 40 mg/dL High <=19 [facility] Comment on above: Performed By: #### 8 [id number] ####KADEN Urinalysis Automated Xvdoogbwru2694 [place] [address] UA Bacteria Trace Abnormal None [facility] Comment on above: Performed By: #### 8 [id number] ####KADEN Urinalysis Automated Rsimwyugko8370 [place] [id number] UA Clarity Cloudy Abnormal Clear [facility] Comment on above: Performed By: #### 8 [id number] ####KADEN Urinalysis Automated Hxifpzwkmu5966 [place] [address] UA Leuk Est Negative Normal Negative [facility] Comment on above: Performed By: #### 8 [id number] ####KADEN Urinalysis Automated Ezxhynlvyh5488 [place] [address] UA Mucous Few Abnormal Trace [facility] Comment on above: Performed By: #### 8 [id number] ####KADEN Urinalysis Automated [address] [place] [address] UA Nitrite Negative Normal Negative [facility] Comment on above: Performed By: #### 8 [id number] ####KADEN Urinalysis Automated [address] [place] [address] UA pH 7.0 Normal 4.6-8.0 [facility] Comment on above: Performed By: #### 8 [id number] ####KDAEN Urinalysis Automated [address] [place] [address] UA Protein Negative Normal Negative [facility] Comment on above: Performed By: #### 8 [id number] ####KADEN Urinalysis Automated Kttgmwnvvq6294 [place] [address] UA Spec Grav 1.025 Normal 1.003-1.03 0 [facility] Comment on above: Performed By: #### 8 [id number] ####KADEN Urinalysis Automated Wpcqgaaajg2512 [place] [address] UA Squam Epithelial 5-10 Abnormal 0-5 [facility] Comment on above: Performed By: #### 8 [id number] ####KADEN Urinalysis Automated Dsnpsbmkat6689 [place] [address] UA Urobilinogen 2.0 mg/dL Abnormal [facility] Comment on above: Performed By: #### 8 [id number] ####KADEN Urinalysis Automated Umfddnqddx8662 [place] [address] Urine, color Yellow Normal Yellow [facility] Comment on above: Performed By: #### 8 [id number] ####KADEN Urinalysis Automated Idcxbwtayw0154 [place] [address] Urine, erythrocytes 0-3 Normal 0-3 [facility] Comment on above: Performed By: #### 8 [id number] ####KADEN Urinalysis Automated Pvboxbqwmb2782 [place] [address] Urine, glucose Negative Normal Negative [facility] Comment on above: Performed By: #### 8 [id number] ####KADEN Urinalysis Automated [address] [place] [address] Urine, ketones presence 2+ Abnormal Negative [facility] Comment on above: Performed By: #### 8 [id number] ####KADEN Urinalysis Automated [address]ysbx[address] [place] [address] Urine, urobilinogen Negative Normal Negative [facility] Comment on above: Performed By: #### 8 [id number] ####KADEN Urinalysis Automated [address] [place] [address] eGFRon 04-11-2017 eGFR (non-black) mL/min/{1.73_m2} Normal [facility] Comment on above: Order Comment: Order added by Discern Expert. Performed By: #### 1 [id number] ####KADEN OudGmcp5520 [place] [address] eGFR AA >60 Normal [facility] Comment on above: Order Comment: Order added by Discern Expert. Performed By: #### 1 [id number] ####KADEN WrlIntb5464 [place] [address] U BhCG Qlton 03-20-2017 HCG.beta subunit Qn Negative Normal Neg [facility] Comment on above: Performed By: #### 2 [id number] ####KADEN Urinalysis Manual Pwfnwqqvvj1324 [place] [id number] UA Completeon 03-20-2017 UA Blood Negative Normal Negative [facility] Comment on above: Performed By: #### 8 [id number] ####KADEN Urinalysis Automated Uvieavbdnw0343 [place] [address] UA Amorph Chastity 1+ /HPF Abnormal None [facility] Comment on above: Performed By: #### 8 [id number] ####KADEN Urinalysis Automated Zlzoqytipj9260 [place] [address] UA Bacteria 2+ /HPF Abnormal None [facility] Comment on above: Performed By: #### 8 [id number] ####KADEN Urinalysis Automated Kfaxwijwso1227 [place] [address] UA Clarity Cloudy Abnormal Clear [facility] Comment on above: Performed By: #### 8 [id number] ####KADEN Urinalysis Automated [address]zjx[address] [place] [address] UA Leuk Est 1+ Abnormal Negative [facility] Comment on above: Performed By: #### 8 [id number] ####KADEN Urinalysis Automated Np[address]siar[address] [place] [address] UA Mucous Occasional Abnormal Trace [facility] Comment on above: Performed By: #### 8 [id number] ####KADEN Urinalysis Automated S[address]puj[address] [place] [address] UA Nitrite Negative Normal Negative [facility] Comment on above: Performed By: #### 8 [id number] ####KADEN Urinalysis Automated Djfx[address]uy[address] [place] [address] UA pH 6.0 Normal 4.6-8.0 [facility] Comment on above: Performed By: #### 8 [id number] ####KADEN Urinalysis Automated Wfbvoahhye[address] [place] [address] UA Protein 1+ Abnormal Negative [facility] Comment on above: Performed By: #### 8 [id number] ####KADEN Urinalysis Automated Hzrfobmsyc[address] [place] [address] UA Spec Grav 1.019 Normal 1.003-1.03 0 [facility] Comment on above: Performed By: #### 8 [id number] ####KADEN Urinalysis Automated Urzzqnkjjv[address] [place] [address] UA Squam Epithelial 5-10 Abnormal 0-5 [facility] Comment on above: Performed By: #### 8 [id number] ####KADEN Urinalysis Automated Nxpooxzfrb2124 [place] [address] UA Urobilinogen Negative Normal [facility] Comment on above: Performed By: #### 8 [id number] ####KADEN Urinalysis Automated Bmgulxzjqf1295 [place] [address] UA WBC >50 Abnormal 0-5 [facility] Comment on above: Performed By: #### 8 [id number] ####KADEN Urinalysis Automated Zryosgtatb4027 [place] [address] Urine, color Yellow Normal Yellow [facility] Comment on above: Performed By: #### 8 [id number] ####KADEN Urinalysis Automated Jwakhhcyni5625 [place] [address] Urine, erythrocytes 5-10 Abnormal 0-3 [facility] Comment on above: Performed By: #### 8 [id number] ####KADEN Urinalysis Automated Bslmwzsjpf5642 [place] [address] Urine, glucose Negative Normal Negative [facility] Comment on above: Performed By: #### 8 [id number] ####KADEN Urinalysis Automated Clnagcrxpv1656 [place] [address] Urine, ketones presence Negative Normal Negative [facility] Comment on above: Performed By: #### 8 [id number] ####KADEN Urinalysis Automated Xyihzpevov4029 [place] [address] Urine, urobilinogen Negative Normal Negative [facility] Comment on above: Performed By: #### 8 [id number] ####KADEN Urinalysis Automated Xezimhrsao1132 [place] [address] Vital Signs Date Time Vital Sign Value Performing Clinician Facility 07-18-2023 10:30-0500 Body mass index (BMI) [Ratio] 26.7 kg/m2 Feebbo Work Phone: [facility] 07-18-2023 10:30-0500 Body weight 75.03 kg Feebbo Work Phone: [facility] 07-18-2023 10:30-0500 Diastolic blood pressure 68 mm[Hg] Feebbo Work Phone: [facility] 07-18-2023 10:30-0500 Systolic blood pressure 106 mm[Hg] Cuong Ortiz DO Work Phone: [facility] 02-11-2023 14:13-0400 Body height 165.1 cm PAZhao Wyatt Work Phone: [facility] 02-11-2023 14:13-0400 Body temperature 97.9 [degF] FERMIN-Ventura Wyatt Work Phone: [facility] 02-11-2023 14:13-0400 Body weight 70.55 kg FERMIN-Ventura Wyatt Work Phone: [facility] 02-11-2023 14:13-0400 Diastolic blood pressure 80 mm[Hg] FERMIN-Ventura Wyatt Work Phone: [facility] 02-11-2023 14:13-0400 Heart rate 60 /min SADAF Wyatt Work Phone: [facility] 02-11-2023 14:13-0400 Respiratory rate 15 /min SADAF Wyatt Work Phone: [facility] 02-11-2023 14:13-0400 SaO2% (BldA) [Mass fraction] 99 % SADAF Wyatt Work Phone: [facility] 02-11-2023 14:13-0400 Systolic blood pressure 134 mm[Hg] SADAF Wyatt Work Phone: [facility] 02-08-2023 12:36-0400 Body height 165.1 cm SADAF Wyatt Work Phone: [facility] 02-08-2023 12:36-0400 Body temperature 98.2 [degF] SADAF Wyatt Work Phone: [facility] 02-08-2023 12:36-0400 Body weight 72.57 kg SADAF Wyatt Work Phone: [facility] 02-08-2023 12:36-0400 Diastolic blood pressure 84 mm[Hg] PA-C Andie Wyatt Work Phone: [facility] 02-08-2023 12:36-0400 Heart rate 74 /min PA-C Andie Wyatt Work Phone: [facility] 02-08-2023 12:36-0400 Respiratory rate 15 /min PA-C Andie Wyatt Work Phone: [facility] 02-08-2023 12:36-0400 SaO2% (BldA) [Mass fraction] 98 % PA-C Anide Wyatt Work Phone: [facility] 02-08-2023 12:36-0400 Systolic blood pressure 150 mm[Hg] PA-C Andie Wyatt Work Phone: [facility] 12-19-2022 14:43-0400 Body temperature 96.9 [degF] FERMIN-C Andie Wyatt Work Phone: [facility] 12-19-2022 14:43-0400 Diastolic blood pressure 74 mm[Hg] PA-C Andie Wyatt Work Phone: [facility] 12-19-2022 14:43-0400 Heart rate 59 /min FERMIN-C Andie Wyatt Work Phone: [facility] 12-19-2022 14:43-0400 Respiratory rate 18 /min PA-Ventura Wyatt Work Phone: [facility] 12-19-2022 14:43-0400 SaO2% (BldA) [Mass fraction] 100 % PA-C Andie Wyatt Work Phone: [facility] 12-19-2022 14:43-0400 Systolic blood pressure 115 mm[Hg] PA-C Andie Wyatt Work Phone: [facility] 12-19-2022 14:00-0400 Diastolic blood pressure 89 mm[Hg] PA-Ventura Wyatt Work Phone: [facility] 12-19-2022 14:00-0400 Heart rate 79 /min PA-C Andie Wyatt Work Phone: [facility] 12-19-2022 14:00-0400 Respiratory rate 16 /min PA-Ventura Wyatt Work Phone: [facility] 12-19-2022 14:00-0400 SaO2% (BldA) [Mass fraction] 99 % PA-Ventura Wyatt Work Phone: [facility] 12-19-2022 14:00-0400 Systolic blood pressure 150 mm[Hg] PA-C Andie Wyatt Work Phone: [facility] 12-19-2022 03:30-0400 Body height 165.1 cm PA-Ventura Wyatt Work Phone: [facility] 12-19-2022 03:30-0400 Body weight 72.2 kg PA-Ventura Wyatt Work Phone: [facility] 12-18-2022 23:07-0400 Body height 165.1 cm PA-Ventura Wyatt Work Phone: [facility] 12-18-2022 23:07-0400 Body weight 74.2 kg PA-Ventura Wyatt Work Phone: [facility] 12-18-2022 23:05-0400 Body temperature 98.5 [degF] FERMIN-Ventura Wyatt Work Phone: [facility] 08-20-2022 14:31-0500 Body height 165.1 cm PA-Ventura Wyatt Work Phone: [facility] 08-20-2022 14:31-0500 Body temperature 98.9 [degF] PA-C Andie Wyatt Work Phone: [facility] 08-20-2022 14:31-0500 Body weight 71.55 kg PA-Ventura Wyatt Work Phone: [facility] 08-20-2022 14:31-0500 Diastolic blood pressure 87 mm[Hg] PA-Ventura Wyatt Work Phone: [facility] 08-20-2022 14:31-0500 Heart rate 97 /min PAZhao Wyatt Work Phone: [facility] 08-20-2022 14:31-0500 Respiratory rate 18 /min PA-Ventura Wyatt Work Phone: [facility] 08-20-2022 14:31-0500 SaO2% (BldA) [Mass fraction] 98 % PA-Ventura Wyatt Work Phone: [facility] 08-20-2022 14:31-0500 Systolic blood pressure 135 mm[Hg] PA-Ventura Wyatt Work Phone: [facility] 02-08-2022 03:06-0400 Body weight 68.[address] CUONG ORTIZ . [facility] Comment on above: Performed By: #### AFPMAT #### [facility] [address] [place] [address] Dr. Juan Antonio Ibarra 02-05-2022 18:24-0400 Body height 165.1 cm PAZhao Wyatt Work Phone: [facility] 02-05-2022 18:24-0400 Body temperature 98.3 [degF] PAZhao Wyatt Work Phone: [facility] 02-05-2022 18:24-0400 Body weight 67.9 kg SADAF Wyatt Work Phone: [facility] 02-05-2022 18:24-0400 Diastolic blood pressure 68 mm[Hg] PA-Ventura Wyatt Work Phone: [facility] 02-05-2022 18:24-0400 Heart rate 92 /min SADAF Wyatt Work Phone: [facility] 02-05-2022 18:24-0400 Respiratory rate 18 /min PAZhao Wyatt Work Phone: [facility] 02-05-2022 18:24-0400 SaO2% (BldA) [Mass fraction] 99 % SADAF Wyatt Work Phone: [facility] 02-05-2022 18:24-0400 Systolic blood pressure 125 mm[Hg] SADAF Wyatt Work Phone: [facility] Encounters Encounter Date Encounter Type Care Provider Facility Start: 10-14-2023 End: 10-14-2023 ambulatory CUONG DIANA Not Available Start: 09-30-2023 End: 09-30-2023 ambulatory CUONG DIANA Not Available Start: 09-12-2023 End: 09-12-2023 ambulatory CUONG DIANA Not Available Start: 08-15-2023 End: 08-15-2023 ambulatory ANDIE WYATT [facility] Start: 08-15-2023 End: 08-15-2023 ambulatory CUONG DIANA Not Available Start: 07-22-2023 Documentation procedure Lucio HARPER Work Phone: [facility] Comment on above: Outgoing Ca ll [...] Start: 07-18-2023 End: 07-18-2023 ambulatory ANDIE Thibodeaux [facility] Start: 07-03-2023 End: 07-03-2023 ambulatory CUONG R [facility] Start: 07-03-2023 End: 07-03-2023 Telemedicine consultation with patient Rosaura HARPER Work Phone: [facility] Comment on above: Family history of ge netic disorder (Primary Dx); Genetic testing; Fetus with trisomy 13, single gestation Start: 06-20-2023 End: 06-20-2023 ambulatory BARB KRAMER Not Available Start: 05-23-2023 End: 05-23-2023 ambulatory CUONG ORTIZ Not Available Start: 04-16-2023 ambulatory Cesar Clayton acility:[facility] Start: 02-11-2023 End: 02-11-2023 Emergency department patient visit Johnson Annie Facility:[facility] Start: 02-11-2023 End: 02-11-2023 Emergency department patient visit SADAF Wyatt Work Phone: [facility] Work Phone: Start: 02-08-2023 End: 02-08-2023 Emergency department patient visit Elle Rhodes Facility:[facility] Start: 02-08-2023 End: 02-08-2023 Emergency department patient visit SADAF Wyatt Work Phone: [facility] Work Phone: Start: 12-19-2022 End: 12-19-2022 ambulatory Arden Orozco Facility:[facility] Start: 12-19-2022 End: 12-19-2022 Evaluation and management of inpatient SADAF Wyatt Work Phone: [facility] Work Phone: Start: 12-19-2022 End: 12-19-2022 observation encounter SADAF Wyatt Work Phone: [facility] Work Phone: Start: 10-24-2022 End: 10-24-[address] CUONG ORTIZ . Facility: Start: 10-23-2022 Registered Recurring SADAF Wyatt Work Phone: [facility] Start: 08-20-2022 End: 08-20-2022 Emergency department patient visit Elle Rhodes Facility:[facility] Start: 08-20-2022 End: 08-20-2022 Emergency department patient visit SADAF Wyatt Work Phone: [facility] Work Phone: Start: 07-23-[address] CUONG ORTIZ . Facili ty:[facility] Start: 07-09-2022 End: 07-09-[address] CUONG ORTIZ . Facility:[facility] Start: 07-05-2022 End: 07-07-2022 Evaluation and management of inpatient DR CUONG ORTIZ . Facility:[facility] Start: 07-02-2022 End: 07-02-2022 [facility] Facility: Start: 06-28-2022 End: 06-28-[address] CUONG ORTIZ . Facility: Start: 06-21-2022 End: 06-21-2022 [facility] Facility:[facility] Start: 06-16-2022 End: 06-16-2022 ambulatory [...] ORTIZ . Facility:[facility] Start: 05-24-2022 End: 05-24-2022 [facility] Facility:[facility] Start: 04-04-2022 End: 04-05-2022 ambulatory [...] department patient visit SADAF Wyatt Work Phone: [facility] Start: 12-26-2021 End: 12-27-[address] CUONG ORTIZ . Facility:[facility] Start: 12-07-2021 End: 12-08-[address] CUONG ORTIZ . Facility: Start: 12-27-2017 End: 12-27-2017 Patient encounter Christian Ivan Facility:[facility] Start: 12-12-2017 End: 12-12-2017 Emergency department patient visit Luke Barbosa Facility:[facility] Start: 12-12-2017 Patient encounter Facil [...] and management of inpatient CLARA OLIVIA EVITA [facility] Start: 11-30-2017 End: 11-30-2017 Patient encounter Salomon Nguyen Facility:[facility] Start: 11-30-2017 Patient encounter Facil [id number]:[id number] Start: 11-28-2017 End: 11-28-2017 Patient encounter CLARAVASQUEZ DERASE [facility] Start: 11-21-2017 End: 11-21-2017 Patient encounter OKSANA MASON [facility] Start: 11-21-2017 End: 11-21-2017 Patient encounter Juanita Cole Facility:[facility] Start: 11-20-2017 Patient encounter Facil ity:[id number] Start: 11-17-2017 End: 11-17-2017 Patient encounter Christian A Shekhar Facility:[facility] Start: 11-16-2017 Patient encounter Quyen [id number] Start: 11-07-2017 End: 11-07-2017 Patient encounter OKSANA AMADO [facility] Start: 10-31-2017 End: 10-31-2017 Patient encounter CLARA JAMA [facility] Start: 10-24-2017 End: 10-24-2017 Patient encounter MARCO ANTONIO Bertin ANTONIO [facility] Start: 10-16-2017 End: 10-16-2017 Patient encounter Christian A [place] Facility:[facility] Start: 10-08-2017 End: 10-08-[address] [facility] Start: 10-08-2017 End: 10-08-2017 Patient encounter OKSANA AMADO [facility] Start: 10-01-2017 End: 10-02-2017 Patient encounter Christian A [place] Facility:[facility] Start: 09-10-2017 End: 09-11-2017 Patient encounter LUIS DANIEL TRAMMELL [facility] Start: 09-10-2017 End: 09-10-2017 Patient encounter KRIS Yola HOYT [facility] Start: 09-10-2017 End: 09-10-2017 Patient encounter CLARA JAMA [facility] Start: 09-03-2017 End: 09-04-2017 Patient encounter Christian A [place] Facility:[facility] Start: 08-28-2017 Ambulatory NAGA [facility] Start: 08-13-2017 End: 08-14-2017 Patient encounter CLARA JAMA [facility] Start: 08-13-2017 End: 08-13-2017 Patient encounter MEREDITH JIGNA [facility] Start: 08-13-2017 End: 08-13-[address] [facility] Start: 08-10-2017 End: 08-10-2017 Emergency department patient visit Luke Barbosa Facility:[facility] Start: 08-06-2017 End: 08-07-2017 Patient encounter Christian A [place] Facility:[facility] Start: 07-23-2017 End: 07-24-2017 Patient encounter Christian Ivan Facility:[facility] Start: 07-18-2017 End: 07-18-2017 Patient encounter CLARA JAMA [facility] Start: 07-09-2017 End: 07-10-2017 Patient encounter Christian Ivan Facility:[facility] Start: 06-25-2017 End: 06-26-2017 Patient encounter Christian Ivan Facility:[facility] Start: 06-12-2017 End: 06-12-2017 Patient encounter Christianshoaib Ivan Facility:[facility] Start: 05-14-2017 End: 05-15-2017 Patient encounter Christian Ivan Facility:[facility] Start: 05-01-2017 End: 05-02-2017 Patient encounter Salomon Blantonman Facility:[facility] Start: 04-23-2017 End: 04-23-2017 Patient encounter Yasmin Evans Facility:[facility] Start: 04-22-2017 End: 04-22-2017 Emergency department patient visit Luke Ochoaer Facility:[facility] Start: 04-18-2017 End: 04-18-2017 Emergency department patient visit Luke Barbosa Facility:[facility] Start: 04-16-2017 End: 04-17-2017 Patient encounter Gamaliel Savage Facility:[facility] Start: 04-16-2017 End: 04-17-2017 Patient encounter Christian Ivan Facility:[facility] Start: 04-11-2017 End: 04-11-2017 Emergency department patient visit Nodr No Doctor Assigned Facility:[facility] Start: 03-26-2017 End: 03-27-2017 Patient encounter Luke Barbosa Facility:[facility] Start: 03-20-2017 End: 03-20-2017 Emergency department patient visit Nodr No Doctor Assigned Facility:[facility] Start: 03-01-2017 End: 03-01-2017 Emergency department patient visit Nodr No Doctor Assigned Facility:[facility] Procedures Date Procedure Procedure Detail [...] on above: Result Comment: PERF ORMED BY: [facility] [address] [address] PATHOLOGIST DOOR OPERATOR MALVIN MEDLEY M.D. Start: 12-19-2022 X-ray [...] Adult depression scr eening assessment Rosaura Renee [facility] Work Phone: Start: 11-30-2017 Antibody screen SHAINA JAMA Comment on above: Performed By: #### T &S #### [facility] [address] [place] [address] Aerobic microbial culture FERMIN Wyatt Work Phone: Investigation of transfusion reaction SADAF Wyatt Work Phone: Plan of Treatment Date Care Activity Detail Author Start: 12-18-2032 DTaP,Tdap and Td Vaccines (10 - Td or Tdap) DTaP,Tdap and Td Vaccines (10 - Td or Tdap) [facility] Start: 09-11-2023 Adult BMI Screening Adult BMI Screening [facility] Start: 09-11-2023 Tobacco Screening Tobacco Screening [facility] Start: 08-15-2023 End: 08-15-2023 Patient encounter procedure 08/15/2023 2:15 PM EST Appointment [facility] [address] [address] [place] [address] [facility] Start: 08-15-2023 End: 08-15-2023 Patient encounter procedure 08/15/2023 9:10 AM EST Routine [facility] [address] [place] [id number] Cuong Ortiz, DO [address] [place] [address] [facility] Start: 07-18-2023 End: 07-18-2023 Patient encounter procedure 07/18/2023 8:00 AM EST Appointment [facility] [address] [address] [place] [address] [facility] Start: 05-02-2023 Depression Screening Depression Screening [facility] Start: 02-15-2023 COVID-19 Vaccine ( season) COVID-19 Vaccine () [facility] Start: 02-15-2023 Influenza vaccination [facility] Start: 12-19-2022 Bacteria identified in Urine by Culture Urine Culture [facility] Start: 12-19-2022 [facility] Start: 12-19-2022 CT of head without contrast CT head/brain wo con [facility] Start: 12-19-2022 CT Unspecified body region WO contrast [facility] Start: 12-19-2022 Consultation [facility] Start: 12-19-2022 Hospital admission [facility] Start: 12-19-2022 X-ray of left foot XR foot LT 2V [facility] Start: 12-19-2022 XR Foot - left 2 Views [facility] Start: 12-18-2022 Computed tomography of thoracic spine without contrast CT thoracic spine wo [facility] Start: 12-18-2022 CT cervical spine without contrast CT cervical spine wo [facility] Start: 12-18-2022 CT Cervical spine WO contrast [facility] Start: 12-18-2022 CT Lumbar spine WO contrast [facility] Start: 12-18-2022 CT of head without contrast CT head/brain wo con [facility] Start: 12-18-2022 CT of lumbar spine without contrast CT lumbar spine wo [facility] Start: 12-18-2022 CT Thoracic spine WO contrast [facility] Start: 12-18-2022 CT Unspecified body region WO contrast [facility] Start: 12-18-2022 Pelvis X-ray XR pelvis 1-2V [facility] Start: 12-18-2022 Plain chest X-ray XR chest 1V portable [facility] Start: 12-18-2022 X-ray of both knees XR knee BI 2V [facility] Start: 12-18-2022 XR Chest Single view [facility] Start: 12-18-2022 XR Knee - bilateral 2 Views [facility] Start: 12-18-2022 XR Pelvis 1 or 2 Views [facility] Start: 2022 Screening for malignant neoplasm of cervix [facility] Start: 02-05-2022 [facility] Work Phone: Start: 2013 Screening for malignant neoplasm of cervix [facility] Start: 2010 Adult BMI Follow Up Plan Adult BMI Follow Up Plan [facility] Anaerobic microbial culture Anaerobic Culture [facility] Bacteria identified in Urine by Culture [facility] Patient Education [facility] Work Phone: Patient referral [facility] Work Phone: Immunizations Immunization Date Immunization Notes Care Provider Fa hector 12-18-2022 tetanus toxoid, redu swati diphtheria toxoid, and acellular pertussis vaccine, adsorbed SADAF Wyatt Work Phone: [facility] 05-19-2013 influenza virus vaccine, unspecified formulation Rosaura Víctor [facility] Work Phone: [facility] Payers Date Payer Category Payer Self-pay 2017 Medicaid 2017 Unknown 1992 Unknown [id number] 2.16.840.1.555037.3.579.2.278 1992 Unknown [id number] 2.16.840.1.432470.3.579.2.278 1992 Unknown [id number] 2.16.840.1.379088.3.579.2.278 1992 Unknown [id number] 2.16.840.1.848052.3.579.2.278 1992 Unknown [id number] 2.16.840.1.344574.3.579.2.593 1992 Unknown [id number] 2.16.840.1.073839.3.579.2.593 1992 Unknown [id number] 2.16.840.1.656950.3.579.2.593 1992 Unknown [id number] 2.16.840.1.305755.3.579.2.593 1992 Unknown [id number] 2.16.840.1.935186.3.579.2.593 1992 Unknown [id number] 2.16.840.1.116802.3.579.2.593 1992 Unknown [id number] 2.16.840.1.915850.3.579.2.593 1992 Unknown [id number] 2.16.840.1.203514.3.579.2.593 1992 Unknown [id number] 2.16.840.1.638549.3.579.2.593 1992 Unknown [id number] 2.16.840.1.807377.3.579.2.59 1992 Unknown [id number] 2.16.840.1.636498.3.579.2.59 1992 Unknown [id number] 2.16.840.1.636957.3.579.2.59 1992 Unknown [id number] 2.16.840.1.000690.3.579.2.59 1992 Unknown [id number] 2.16.840.1.459158.3.579.2.59 1992 Unknown [id number] 2.16.840.1.402759.3.579.2.59 1992 Unknown [id number] 2.16.840.1.154733.3.579.2.59 1992 Unknown [id number] 2.16.840.1.046256.3.579.2.59 1992 Unknown [id number] 2.16.840.1.188062.3.579.2.59 1992 Unknown [id number] 2.16.840.1.862516.3.579.2.59 1992 Unknown [id number] 2.16.840.1.915985.3.579.2.59 1992 Unknown [id number] 2.16.840.1.785042.3.579.2.593 1992 Unknown [id number] 2.16.840.1.681322.3.579.2.593 1992 Unknown [id number] 2.16.840.1.326242.3.579.2.1286 1992 Unknown [id number] 2.16.840.1.290439.3.579.2.1286 1992 Unknown [id number] 2.16.840.1.615660.3.579.2.1286 1992 Unknown [id number] 2.16.840.1.856329.3.579.2.1259 1992 Unknown [id number] 2.16.840.1.508637.3.579.2.9 1992 Unknown [id number] 2.16.840.1.901626.3.579.2.9 1992 Unknown [id number] 2.16.840.1.659591.3.579.2.1258 1992 Unknown [id number] 2.16.840.1.717682.3.579.2.9 1992 Unknown [id number] 2.16.840.1.697863.3.579.2.9 1992 Unknown [id number] 2.16.840.1.508470.3.579.2.1259 1959 Medicaid [id number] 1959 Medicaid [id number] Medicaid [id number] Unknown Regular Auto/Liability [id number] Unknown [id number] 2.16.840.1.423602.3.579.2.531 Unknown [id number] 2.16.840.1.168141.3.579.2.531 Unknown [id number] 2.16.840.1.279334.3.579.2.531 Unknown [id number] 2.16.840.1.685580.3.579.2.531 Unknown [id number] 2.16.840.1.408627.3.579.2.531 Social History Date Type Detail Facility Start: 02-05-2022 End: 05-09-2023 Tobacco smoking status DEIS Never smoked tobacco (finding) [facility] Start: 1990 Sex Assigned At Female [facility] Start: 12-19-2022 End: 12-19-2022 Tobacco smoking status DEIS Current some day smoker [facility] Start: 03-28-2022 End: 02-11-2023 Tobacco smoking status DEIS Ex-smoker (finding) [facility] History of tobacco use Current smoker [facility] History of tobacco use Tobacco U se Types Packs/Day Years Used Date Smoking Tobacco: Former Vaping/E-cigarettes Smokeless Tobacco: Never [facility] Start: 03-28-2022 Tobacco use and exposure Smokeless tobacco non-user [facility] Start: 06-26-2023 Alcohol intake Current non-drinker of alcohol (finding) [facility] Start: 03-18-2018 End: 05-09-2023 History of Social function [facility] Start: 03-18-2018 End: 05-09-2023 Alcohol Use Disorder Identification Test - Consumption [AUDIT-C] [facility] Frequency of Alcohol Consumption Never [facility] Start: 03-11-2023 [facility] Start: 1990 Sex Assigned At Not on file [facility] Start: 07-18-2023 Alcohol intake Lifetime non-drinker (finding) [facility] Goals Date Patient Goal Desired Activity /State Functional Status Date Assessment Result Facility 12-19-2022 Functional status Patient at Baseline [facility] Work Phone: Mental Status Date Assessment Result Facility 12-19-2022 Cognitive function Cognitive Sta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
[2023-10-19 14:24] VITALS: BP 122/69; PULSE 88
== END 2023-10-19 15:10 | disposition home or self-care (01) ==
LOC: FBCO 09:10 → FBC 14:19
PROVIDERS: PCP Physician Assistant; Visit Provider Obstetrics & Gynecology
DX: O26.893 Other specified pregnancy related conditions, third trimester (principal); Z3A.33 33 weeks gestation of pregnancy
CPT/HCPCS: 76818

== ENCOUNTER 2023-10-23 07:29 | Outpatient (OUT) | payer MEDICAID, SELFPAY ==
--- OUTSIDE RECORDS SUMMARY | 2023-10-23 07:32 | XMS_ITS | CCD ---
Author Organization [facility] Care Team Providers Care Patent Chemist Name Role Phone CLARA JAMA Unavailable Unavail able SERENITY MALDONADO Unavailable Unavailable OKSANA CARO Unavailable UnavaNAGA Hull Unavailable Unavailable BARBOSA, LUKE MALIK Unavailable Unavailable PatrickSalomon terrell R Unavailable Unavailable Patrick, Salomon R Unavailable Unavailable Barbosa, Luke Unavailable Unavailable Shekhar, Christian A Unavailable Unavailable Barbosa, Luke Unavailable Unavailable [place], Christian A Unavailable Unavailable Barbosa, Luke Unavailable Unavailable [place], Christian A Unavailable Unavailable Barbosa, Luke Unavailable Unavailable Shekhar, Christian A Unavailable Unavailable Barbosa, Luke Unavailable Unavailable [place], Christian A Unavailable Unavailable [place], Christian A Unavailable Unavailable Brabosa, Luke Unavailable Unavailable Shekhar, Christian A Unavailable Unavailable Barbosa, Luke Unavailable Unavailable Shekhar, Christian A Unavailable Unavailable [place], Christian A Unavailable Unavailable Barbosa, Luke Unavailable Unavailable Barbosa, Luke Unavailable Unavailable Woo, Emiliano Unavailable Unavailable Woo, Emiliano Unavailable Unavailable Patrick, Salomon R Unavailable Unavailable Barbosa, Luke Unavailable Unavailable Barbosa, Luke Unavailable Unavailable Oscar, Jag W Unavailable Unavailable Climax, Jag W Unavailable Unavailable [place], Christian A Unavailable Unavailable Barbosa, Luke Unavailable Unavailable [place], Christian A Unavailable Unavailable Barbosa, Luke Unavailable [...] Unavail able Oscar, Jag W Unavailable Unavailable Climax, Jag W Unavailable Unavailable Barbosa, Luke Unavailable Unavailable No Doctor Assigned, Nodr Unavailable Unavail able SavageGamaliel M Unavailable Unavailable Barbosa, Luke Unavailable Unavailable Hannah, Aaron A Unavailable Unavailable Hannah, Aaron A Unavailable Unavailable Patrick, Salomon R Unavailable Unavailable Patrick, Salomon R Unavailable Unavailable Barbosa, Luke Unavailable Unavailable Frank, Juanita Unavailable Unavailable Frank, Juanita Unavailable Unavailable Barbosa, Luke Unavailable Unavailable [place], Christian A Unavailable Unavailable [place], Christian A Unavailable Unavailable Barbosa, Luke Unavailable Unavailable Shekhar, Christain A Unavailable Unavailable Barbosa, Luke Unavailable Unavailable Barbosa, Luke Unavailable Unavailable Climax, Jag W Unavailable Unavailable Oscar, Jag W Unavailable Unavailable [place], Christian A Unavailable Unavailable Barbosa, Luke Unavailable Unavailable Gamaliel Savage M Unavailable Unavailable Gamaliel Savage M Unavailable Unavailable Barbosa, Luke Unavailable Unavailable [place], Christian A Unavailable Unavailable Barbosa, Luke Unavailable [...] Unavailable LAI, KRIS T Unavailable Unavailable LAI, RKIS T Unavailable Unavailable PROVIDER, EXTERNAL Unavailable Unavailable [...] Provider SADAF Wyatt Primary Care Provider Meagan [facility] Elle E Emergency Provider DIANA .DR ACOSTA Consulting Unavailable [facility] Primary Care Unavailable DIANA ., DR ACOSTA Attending Unavailable DIANA ., DR ACOSTA Admitting Unavailable DIANA ., DR ACOSTA Admitting Unavailable DIANA ., DR ACOSTA Attending Unavailable [facility] Primary Care Unavailable DIANA ., DR ACOSTA Consulting Unavailable SUSI, DR FELECIA Chadwick Consulting Unavailable [facility] Primary Care Unavailable KARASIK ., DR CAMACHO Admitting Unavailabl e KARASIK ., DR CAMACHO Attending Unavailabl e KARASIK ., DR CAMACHO Consulting Unavailabl e WEST, DR GAMALIEL Fischer Consulting Unavailable DIANA ., DR ACOSTA Consulting Unavailable ZIEBER, DR FELECIA Chadwick Consulting Unavailable WILLIAMS ., BARB Admitting Unavailable WILLIAMS ., BARB Attending Unavailable [facility] Primary Care Unavailable WILLIAMS ., BARB Consulting Unavailable DIANA ., DR ACOSTA Admitting Unavailable DIANA ., DR ACOSTA Attending Unavailable [facility] Primary Care Unavailable DIANA ., DR ACOSTA Consulting Unavailable [facility] Primary Care Unavailable KARASIK ., DR CAMACHO Admitting Unavailabl e KARASIK ., DR CAMACHO Attending Unavailabl e KARASIK ., DR CAMACHO Consulting Unavailabl e DIANA ., DR ACOSTA Admitting Unavailable DIANA ., DR ACOSTA Attending Unavailable [facility] Primary Care Unavailable DIANA ., DR ACOSTA Consulting Unavailable ZIEBER, DR FELECIA Chadwick Consulting Unavailable DIANA ., DR ACOSTA Admitting Unavailable DIANA ., DR ACOSTA Attending Unavailable [facility] Primary Care Unavailable DIANA ., DR ACOSTA Consulting Unavailable ZIEBER, DR FELECIA Chadwick Consulting Unavailable PRATIMA, BRODIE Consulting Unavailable DIANA ., DR ACOSTA Consulting Unavailable [facility] Primary Care Unavailable DIANA ., DR ACOSTA Attending Unavailable DIANA ., DR ACOSTA Admitting Unavailable ZIEBER, DR FELECIA Chadwick Consulting Unavailable DIANA ., DR ACOSTA Consulting Unavailable [facility] Primary Care Unavailable DIANA ., DR ACOSTA Attending Unavailable DIANA ., DR ACOSTA Admitting Unavailable DIANA ., DR ACOSTA Admitting Unavailable DIANA ., DR ACOSTA Attending Unavailable [facility] Primary Care Unavailable DIANA ., DR ACOSTA Consulting Unavailable ZIEBER, DR FELECIA Chadwick Consulting Unavailable DIANA ., DR ACOSTA Admitting Unavailable DIANA ., DR ACOSTA Attending Unavailable [facility] Primary Care Unavailable WEST, DR GAMALIEL Fischer Consulting Unavailable DIANA ., DR ACOSTA Consulting Unavailable [facility] Primary Care Unavailable KARASIK ., DR CAMACHO Admitting Unavailabl e KARASIK ., DR CAMACHO Attending Unavailabl e KARASIK ., DR CAMACHO Consulting Unavailabl e DIANA ., DR ACOSTA Consulting Unavailable ZIEBER, DR FELECIA Chadwick Consulting Unavailable DIANA ., DR ACOSTA Admitting Unavailable DIANA ., DR ACOSTA Attending Unavailable [facility] Primary Care Unavailable WEST, DR GAMALIEL Fischer Consulting Unavailable DIANA ., DR ACOSTA Consulting Unavailable DIANA ., DR ACOSTA Admitting Unavailable DIANA ., DR ACOSTA Attending Unavailable [facility] Primary Care Unavailable DIANA ., DR ACOSTA Consulting Unavailable DIANA ., DR ACOSTA Admitting Unavailable DIANA ., DR ACOSTA Attending Unavailable [facility] Primary Care Unavailable DIANA ., DR ACOSTA Consulting Unavailable ZIEBER, DR FELECIA Chadwick Consulting Unavailable DIANA ., DR ACOSTA Admitting Unavailable DIANA ., DR ACOSTA Attending Unavailable [facility] Primary Care Unavailable DIANA ., DR ACOSTA Consulting Unavailable DIANA ., DR ACOSTA Admitting Unavailable DIANA ., DR ACOSTA Attending Unavailable [facility] Primary Care Unavailable DIANA ., DR ACOSTA Consulting Unavailable [facility] Primary Care Unavailable DIANA ., DR ACOSTA Attending Unavailable DIANA ., DR ACOSTA Admitting Unavailable DIANA ., DR ACOSTA Admitting Unavailable DIANA ., DR ACOSTA Attending Unavailable [facility] Primary Care Unavailable DIANA ., DR ACOSTA Admitting Unavailable DIANA ., DR ACOSTA Attending Unavailable [facility] Primary Care Unavailable KARASIK ., DR CAMACHO Consulting Unavailabl e DIANA ., DR ACOSTA Consulting Unavailable DIANA ., DR ACOSTA Procedure Practitioner Unavail able ORLANDO PRASAD Consulting Unavailable JACQUES FLETCHER Consulting Unavailable DIANA ., DR ACOSTA Admitting Unavailable DIANA ., DR ACOSTA Attending Unavailable [facility] Primary Care Unavailable KARASIK ., DR CAMACHO Consulting Unavailabl e ZIEBER, DR FELECIA Chadwick Consulting Unavailable SADAF Wyatt Primary Care Provider MD Farhan Jean Attending Provider [phone] Poe, DO Oscar Emergency Provider [phone] Itzkowitz, DO Arden Admit Provider [phone] Itzkocece, DO Arden Attending Provider FRED Ventura Other Provider UnavailMD Juan Edwards Other Provider BRISA MoniqueC Ailyn Other Provider [phone] MD Jacques Valerio Other Provider MD Edith Urias Other Provider SADAF Wyatt Primary Care Provider [place], HOME BASED ASSISTANT-BC Elle E Emergency Provider BRANNON Valencia Emergency Provider Andie Wyatt PA-C Primary Care Provider [phone] CUONG ORTIZ Referring Unavailable ANDIE WYATT Primary [...] to adverse reactions (disorder) 8 [facility] Repository (2 sources) Mold spore; Translations: [MOLD SPORES] Propensity to adverse reactions (disorder) 8 [facility] Repository (18 sources) Penicillins; Translations: [PENICILLINS] Propensity to adverse reactions to drug (disorder) 4 [facility] Repository (12 sources) Sulfonamides (Antibiotic); Translations: [SULFA (SULFONAMIDE ANTIBIOTICS)] Propensity to adverse reactions to drug (disorder) 8 [facility] Repository (1 source) Bee/Wasp/Ant venom; Translations: [Bee Stings] Propensity to adverse reactions to drug (disorder) [facility] Repository (1 source) mold extract; Translations: [Mold] Drug Allergy [facility] Repository (1 source) Sulfonamides (Antibiotic); Translations: [sulfa drugs] Propensity to adverse reactions to drug (disorder) [facility] Repository (4 sources) bee venom; Translations: [BEE VENOM] Propensity to adverse reactions to drug (disorder) 8 [facility] Repository (1 source) OTHER; Translations: [OTHER] Propensity to adverse reactions to food (disorder) 8 [facility] Repository (1 source) MOLDS & SMUTS; Translations: [MOLDS & SMUTS] Propensity to adverse reactions to drug (disorder) 8 [facility] Repository (4 sources) SULFA ANTIBIOTICS; Translations: [SULFA ANTIBIOTICS] Propensity to adverse reactions to drug (disorder) 8 [facility] Repository (1 source) Sulfonamides (Antibiotic) Drug allergy (disorder) 4 [facility] Repository (4 sources) Bee Venom Protein (Honey Bee); Translations: [BEE VENOM PROTEIN (HONEY BEE)] Propensity to adverse reactions to drug 2 [employer] [facility] (1 source) Penicillin Drug Allergy 2 [facility] Repository (1 source) Sulfacetamide Drug Allergy 2 [facility] Repository Medications Current Medications Medication Drug [...] mouth in the morning. 0 02/27/2023 Active Watts (No Known Home Meds) (2 sources) Start: 12-18-2022 Watts (No Known Home Meds) Active December 18, [...] (-1 ORAL) Take by mouth. 0 Active Rnsnofht-Aly-Vq-FA (, w/Iron & FA,) 27-0.8 MG tablet (3 sources) Ixxoulgc-Fov-Pa-FA (, w/Iron & FA,) 27-0.8 MG tablet 1 (one) time each day at the same time. 0 Active UJ-Xgw-II-[place]-3 ( Gummies/DHA & FA) 0.4-32.5 MG chewable tablet (3 sources) Start: 07-09-2023 End: 08-08-2023 AB-Rvg-TQ-[place]-3 ( Gummies/DHA & FA) 0.4-32.5 MG chewable [...] Onset: 11-30-2017 Unclassified (3 sources) M/C OTH LAMINATION BUILDER 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 NA/UNS; Translations: [M/C OTH LAMINATION BUILDER 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 NA/UNS] Onset: 07-05-2022 Unclassified (1 [...] 12-12-2021 Episodic Unclassified (1 source) M/C OTH LAMINATION BUILDER 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 NA/UNS; Translations: [M/C OTH LAMINATION BUILDER 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 NA/UNS] Onset: 07-02-2022 Results Test Name Value Interpretation Reference Range Facility AFP, SERUM, OPEN SPINA BIFID Aon 07-20-2023 AFP MOM 1.21 . [facility] AFP VALUE 70.2 ng/mL . [facility] COMMENT: Comment . [facility] Comment on above: Alma Chaudhary , Ph.D., [facility] Director References: Available Upon Request. Multiples Of Median Cutoffs For AFP Elevations Briscoe 2.5 Black 2.8 IDD 2.0 Twins 4.5 Abbreviation Definitions IDD - Insulin Dep Diabetes OSBR - Open Spina Bifida Risk For further inquiries contact [employer] at [phone]. This test was developed and its performance characteristics determined by [employer]. It has not been cleared or approved by the Food and Drug Administration. Performed at: [facility] [place], [place] [id number] Secretary Of Police: Oz Harkins [facility], Phone: [phone] GEST. AGE ON COLLECTION DATE 20.4 . weeks [facility] GESTAT. AGE BASED ON LMP . [facility] Comment on above: Recalculations are n ot recommended when gestational dating by LMP and ultrasound are within 10 days. INSULIN DEP DIABETES No . [facility] INTERPRETATION Comment . [facility] Comment on above: Interpretation: Scre en [...] Customer Services to discuss available options. The [employer] recommends amniocentesis be offered to women age 35 and older. [age] [facility] MULTIPLE GESTATION No . [facility] OSBR RISK 1 [place] 6301 . [facility] RACE . [facility] RESULTS Report . [facility] TEST RESULTS: Negative . [facility] WEIGHT 159 . lbs [facility] N N LMP [id number] 3 16 N 1 Y 159 N N N N White/ [facility] Urinalysis macro (dipstick) panel (U)on 07-18-2023 Bilirubin, UA Negative Negative - 4(70) +++ mg/dL [facility] Blood, UA Negative Negative - 50 Rakesh/mcL [facility] Clarity, UA Clear [facility] Color, UA Yellow [facility] Glucose, UA Negative Negative - 2000(110) ++++ mg/dL [facility] Interpretation and review of laboratory results Normal [facility] Ketones, UA Negative Negative - 160(16) ++++ mg/dL [facility] Leukocytes, UA Negative Negative - 500+++ Matti/mcL [facility] Nitrite, UA Negative Negative - Positive [facility] pH, UA 5.5 5 - 9 [facility] Protein, UA Negative Negative - 2000(20) ++++ mg/dL [facility] Spec Grav, UA 1.020 1 - 1.03 [facility] Urobilinogen, UA 1.0 0.2 - 12 mg/dL [facility] ABO/Rh Retypeon 12-19-2022 ABO/RH Recheck Result Positive Normal [facility] Comment on above: Result Comment: PERF ORMED BY: [facility] [address] [place] [address] PATHOLOGIST DIRECTOR DIGITAL ADVERTISING MALVIN MEDLEY M.D. Amphetamine Screen Ql (U)Ord ered By: Oscar Poe on 12-19-2022 Amphetamines Ql (U) Negative Negative [facility] Amylaseon 12-19-2022 Amylase [Catalytic activity/Vol] 35 U/L Normal 29-103 [facility] Comment on above: Performed By: #### C BC, CREAT, GLU, LYTES, AST, ETOH, BARB, LIPASE, CK, BUN ####[facility] Aspartate Amino Transferaseo n 12-19-2022 AST [Catalytic activity/Vol] 26 U/L Normal 13-39 [facility] Comment on above: Performed By: #### C BC, CREAT, GLU, LYTES, AST, ETOH, BARB, LIPASE, CK, BUN ####[place] [id number] [address] Automated erythrocytes count in urine sediment (number/area)Ordered By: Oscar Poe on 12-19-2022 RBC Auto (Urine sed) [#/Area] 5-9 [HPF] 0-4 [facility] Automated leukocytes count i n urine sediment (number/area)Ordered By: Oscar Poe on 12-19-2022 WBC Auto (Urine sed) [#/Area] 10-19 [HPF] 0-4 [facility] Barbiturates [Presence] in U rine by Screen methodOrdered By: Oscar Poe on 12-19-2022 Barbiturates Screen Ql (U) Negative Negative [facility] Benzodiazepines Screen Ql (U )Ordered By: Oscar Poe on 12-19-2022 Benzodiazepines Ql (U) Negative Negative [facility] Benzoylecgonine [Presence] i n Urine by Screen methodOrdered By: Oscar Poe on 12-19-2022 Benzoylecgonine Screen Ql (U) Negative Negative [facility] Bilirubin Test strip Ql (U)O rdered By: Oscar Poe on 12-19-2022 Bilirubin Ql (U) Negative Negative [facility] Blood Urea Nitrogenon 2022 Urea nitrogen [Mass/Vol] 21 mg/dL Normal 7-25 [facility] Comment on above: Performed By: #### C BC, CREAT, GLU, LYTES, AST, ETOH, BARB, LIPASE, CK, BUN ####[facility] cervical spine wo conon 0 12-19-2022 CT cervical spine wo con [facility] [address] [place] [address] [place] [address] CT Scan Report Signed Patient: Zuleika Wyatt MR#: [id number] : 1990 Acct:[id number] Age/Sex: 32 / F ADM Date: 12/19/22 Loc: 4 Room: [address] [place] [address] Type: ADM INOo Attending Dr: Arden Orozco DO Copies to: DO Arden Jefferson DO Ordering Provider: Oscar Poe DO Date of Service: 12/18/22 CT/CT cervical spine wo con: f ([id number]) CT/CT head/brain wo con: f CT BRAIN [...] Pimentel Jr., Sammie12/19/2022 10:25 AM Dictation Location: [place] [address] Transcribed By: DONTE 12/19/22 1025 Dictated By: Rah Pimentel Jr, DO 12/19/22 1016 Signed By: 12/19/22 1025 [facility] CT head/brain wo conon 12-19 CT head/brain wo con [facility] [place] [address] CT Scan Report Signed Patient: Zuleika Wyatt MR#: [id number] : 1990 Acct:[id number] Age/Sex: 32 / F ADM Date: 12/19/22 Loc: Room: [address] [place] [address] Type: DIS INOo Attending Dr: Arden Orozco [...] Pimentel Jr., D.O.12/19/2022 3:28 PM Dictation Location: [place] [address] Transcribed By: [facility] 12/19/22 1528 Dictated By: Rah Pimentel Jr, DO 12/19/22 1524 Signed By: 12/19/22 1528 [facility] CT lumbar spine wo conon CT lumbar spine wo [facility] [place] [address] CT Scan Report Signed Patient: Zuleika Wyatt MR#: [id number] : 1990 Acct:[id number] Age/Sex: 32 / F ADM Date: 12/19/22 Loc: Room: [address] [place] [address] Type: ADM INOo Attending Dr: Arden Orozco DO Copies to: DO Arden Jefferson DO Ordering Provider: Oscar Poe DO Date of Service: 12/18/22 CT/CT thoracic spine wo con: f ([id number]) CT/CT lumbar spine wo con: f CT [...] narrowing or hypertrophy. The ribs within the cjaas-aj-hzld appear intact. No paraspinal soft tissue abnormalities are present. The ascending aorta is mildly ectatic. The heart is not fully imaged though it is at least borderline prominent. There is no consolidation, pleural effusion or pneumothorax within the rgoeo-sh-voaj. No lumbar compression fractures are identified. There [...] The intra-abdominal and pelvic structures within the rezbz-ut-assz show no contributory findings. CT/CT thoracic spine wo con IMPRESSION: MILD THORACIC SCOLIOSIS. NO ACUTE BONY INJURY INVOLVING THE THORACIC OR LUMBAR SPINE. Impression dictated by: Adela Mahan M.D.12/19/2022 10:36 AM Dictation Location: [place] [address] Transcribed By: [facility] 12/19/22 1036 Dictated By: Adela Mahan MD 12/19/22 1026 Signed By: 12/19/22 1036 Normal [facility] Cannabinoids [Presence] in U rine by Screen methodOrdered By: Oscar Poe on 12-19-2022 Cannabinoids Screen Ql (U) Positive Negative [facility] Comment on above: These are unconfirme d results and should not be used for legal purposes. Drug Cut-Off Concentration: AMPH 1000 ng/mL SEEMA 200 ng/mL LAZ 200 ng/mL COCM 300 ng/mL OP 300 ng/mL PCP 25 ng/mL THC 20 ng/mL Color Auto (U)Ordered By: Fernando Poe on 12-19-2022 Color (U) Yellow Yellow [facility] Complete Blood Count Auto Di ffon 12-19-2022 Basophils (Bld) [#/Vol] 0.1 10*3/uL Normal 0.0-0.2 [facility] Comment on above: Result Comment: PERF ORMED BY: [facility] [address] [place] [address] PATHOLOGIST DIRECTOR DIGITAL ADVERTISING MALVIN MEDLEY M.D. Performed By: #### C BC, CREAT, GLU, LYTES, AST, ETOH, BARB, LIPASE, CK, BUN ####[address] Basophils/100 WBC (Bld) 0.7 % Normal . [facility] Comment on above: Performed By: #### C BC, CREAT, GLU, LYTES, AST, ETOH, BARB, LIPASE, CK, BUN ####[address] Eosinophils (Bld) [#/Vol] 0.0 10*3/uL Normal 0.0-0.45 [facility] Comment on above: Performed By: #### C BC, CREAT, GLU, LYTES, AST, ETOH, BARB, LIPASE, CK, BUN ####[address] Eosinophils/100 WBC (Bld) 0.2 % Normal . [facility] Comment on above: Performed By: #### C BC, CREAT, GLU, LYTES, AST, ETOH, BARB, LIPASE, CK, BUN ####[address] Erythrocyte distribution width (RBC) [Ratio] 14.4 % Normal 11.9-15.3 [facility] Comment on above: Performed By: #### C BC, CREAT, GLU, LYTES, AST, ETOH, BARB, LIPASE, CK, BUN ####[address] Hematocrit (Bld) [Volume fraction] 36.2 % Normal 34.0-46.4 [facility] Comment on above: Performed By: #### C BC, CREAT, GLU, LYTES, AST, ETOH, BARB, LIPASE, CK, BUN ####[address] Hemoglobin (Bld) [Mass/Vol] 11.9 g/dL Normal 11.8-15.4 [facility] Comment on above: Performed By: #### C BC, CREAT, GLU, LYTES, AST, ETOH, BARB, LIPASE, CK, BUN ####[address] Lymphocytes (Bld) [#/Vol] 2.2 10*3/uL Normal 1.00-4.8 [facility] Comment on above: Performed By: #### C BC, CREAT, GLU, LYTES, AST, ETOH, BARB, LIPASE, CK, BUN ####[address] Lymphocytes/100 WBC (Bld) 21.8 % Normal . [facility] Comment on above: Performed By: #### C BC, CREAT, GLU, LYTES, AST, ETOH, BARB, LIPASE, CK, BUN ####[address] MCH (RBC) [Entitic mass] 26.9 pg Normal 24.7-34.3 [facility] Comment on above: Performed By: #### C BC, CREAT, GLU, LYTES, AST, ETOH, BARB, LIPASE, CK, BUN ####[address] MCV (RBC) [Entitic vol] 82.1 fL Normal 80-100 [facility] Comment on above: Performed By: #### C BC, CREAT, GLU, LYTES, AST, ETOH, BARB, LIPASE, CK, BUN ####[address] Mean Corpuscular HGB Conc 32.8 g/dL Normal 32.0-35.0 [facility] Comment on above: Performed By: #### C BC, CREAT, GLU, LYTES, AST, ETOH, BARB, LIPASE, CK, BUN ####[address] Monocytes (Bld) [#/Vol] 0.8 10*3/uL Normal 0.0-0.8 [facility] Comment on above: Performed By: #### C BC, CREAT, GLU, LYTES, AST, ETOH, BARB, LIPASE, CK, BUN ####[address] Monocytes/100 WBC (Bld) 22.19 % High 0.00-20.00 [facility] Comment on above: Result Comment: For adults in ED, MDW > 20.0 may be associated with a higher risk of sepsis during the first 12 hrs of hospital admission Performed By: #### C BC, CREAT, GLU, LYTES, AST, ETOH, BARB, LIPASE, CK, BUN ####[address] Monocytes/100 WBC (Bld) 7.4 % Normal . [facility] Comment on above: Performed By: #### C BC, CREAT, GLU, LYTES, AST, ETOH, BARB, LIPASE, CK, BUN ####[address] Neutrophils (Bld) [#/Vol] 7.2 10*3/uL Normal 1.8-7.7 [facility] Comment on above: Performed By: #### C BC, CREAT, GLU, LYTES, AST, ETOH, BARB, LIPASE, CK, BUN ####[address] Neutrophils/100 WBC (Bld) 69.9 % Normal . [facility] Comment on above: Performed By: #### C BC, CREAT, GLU, LYTES, AST, ETOH, BARB, LIPASE, CK, BUN ####[address] NRBC% 0.1 /100{WBC} Normal 0-0.5 [facility] Comment on above: Performed By: #### C BC, CREAT, GLU, LYTES, AST, ETOH, BARB, LIPASE, CK, BUN ####[address] Platelet mean volume (Bld) [Entitic vol] 8.1 fL Normal 6.3-10.7 [facility] Comment on above: Performed By: #### C BC, CREAT, GLU, LYTES, AST, ETOH, BARB, LIPASE, CK, BUN ####[address] Platelets (Bld) [#/Vol] 223 10*3/uL Normal 150-450 [facility] Comment on above: Performed By: #### C BC, CREAT, GLU, LYTES, AST, ETOH, BARB, LIPASE, CK, BUN ####[address] RBC (Bld) [#/Vol] 4.42 10*6/uL Normal 3.60-5.00 [facility] Comment on above: Performed By: #### C BC, CREAT, GLU, LYTES, AST, ETOH, BARB, LIPASE, CK, BUN ####[address] WBC (Bld) [#/Vol] 10.3 10*3/uL Normal 3.8-11.6 [facility] Comment on above: Performed By: #### C BC, CREAT, GLU, LYTES, AST, ETOH, BARB, LIPASE, CK, BUN ####[address] Creatine Kinaseon 12-19-2022 CK [Catalytic activity/Vol] 50 U/L Normal 30-223 [facility] Comment on above: Result Comment: PERF ORMED BY: [facility] [address] [place] [address] PATHOLOGIST DIRECTOR DIGITAL ADVERTISING MALVIN MEDLEY M.D. Performed By: #### C BC, CREAT, GLU, LYTES, AST, ETOH, BARB, LIPASE, CK, BUN ####[address] Creatinineon 12-19-2022 Creatinine [Mass/Vol] 0.84 mg/dL Normal 0.60-1.20 [facility] Comment on above: Performed By: #### C BC, CREAT, GLU, LYTES, AST, ETOH, BARB, LIPASE, CK, BUN ####[facility] [place] [address] [place] Creatinine Clr Calc Pharmacy 98.76 [facility] Comment on above: Performed By: #### C BC, CREAT, GLU, LYTES, AST, ETOH, BARB, LIPASE, CK, BUN ####[facility] GFR/1.73 sq M.predicted MDRD (S/P/Bld) [Vol rate/Area] mL/min/{1.73_m2} [facility] Comment on above: Performed By: #### C BC, CREAT, GLU, LYTES, AST, ETOH, BARB, LIPASE, CK, BUN ####[facility] Dipstick and Microscopicon 0 12-19-2022 Appearance (U) Clear Normal Clear [facility] Comment on above: Order Comment: Name Collection Type:: Clean-Voided Midstream Performed By: #### U RDS, UHCG, CUU, ADDONUAPLUS #### [facility] [address] [place] [address] [place] Bacteria,Urine None Seen Normal None Seen [facility] Comment on above: Order Comment: Name Collection Type:: Clean-Voided Midstream Performed By: #### U RDS, UHCG, CUU, ADDONUAPLUS #### [facility] [address] [place] [address] [place] Bilirubin,Urine Negative Normal Negative [facility] Comment on above: Order Comment: Name Collection Type:: Clean-Voided Midstream Performed By: #### U RDS, UHCG, CUU, ADDONUAPLUS #### [facility] [address] [place] [address] [place] Color (U) Yellow Normal Yellow [facility] Comment on above: Order Comment: Name Collection Type:: Clean-Voided Midstream Performed By: #### U RDS, UHCG, CUU, ADDONUAPLUS #### [facility] [address] [place] [address] [place] Glucose Ql (U) Normal Normal Normal [facility] Comment on above: Order Comment: Name Collection Type:: Clean-Voided Midstream Performed By: #### U RDS, UHCG, CUU, ADDONUAPLUS #### [facility] [address] [place] [address] Hyaline Casts,Urine 0-8 Normal 0-8 [facility] Comment on above: Order Comment: Name Collection Type:: Clean-Voided Midstream Performed By: #### U RDS, UHCG, CUU, ADDONUAPLUS #### [facility] [address] [place] [address] Ketones Ql (U) 1+ High Negative [facility] Comment on above: Order Comment: Name Collection Type:: Clean-Voided Midstream Performed By: #### U RDS, UHCG, CUU, ADDONUAPLUS #### [facility] [address] [place] [address] Leukocyte esterase Test strip Ql (U) 2+ High Negative [facility] Comment on above: Order Comment: Name Collection Type:: Clean-Voided Midstream Performed By: #### U RDS, UHCG, CUU, ADDONUAPLUS #### [facility] [address] [place] [address] [place] Nitrite,Urine Negative Normal Negative [facility] Comment on above: Order Comment: Name Collection Type:: Clean-Voided Midstream Performed By: #### U RDS, UHCG, CUU, ADDONUAPLUS #### [facility] [address] [place] [address] [place] Occult Blood,Urine Negative Normal Negative [facility] Comment on above: Order Comment: Name Collection Type:: Clean-Voided Midstream Performed By: #### U RDS, UHCG, CUU, ADDONUAPLUS #### [facility] [address] [place] [address] [place] pH (U) 5.5 [pH] Normal 5.0-9.0 [facility] Comment on above: Order Comment: Name Collection Type:: Clean-Voided Midstream Performed By: #### U RDS, UHCG, CUU, ADDONUAPLUS #### [facility] [address] [place] [address] [place] Protein,Urine Negative Normal Negative [facility] Comment on above: Order Comment: Name Collection Type:: Clean-Voided Midstream Performed By: #### U RDS, UHCG, CUU, ADDONUAPLUS #### [facility] [address] [place] [address] RBC,Urine 5-9 High 0-4 [facility] Comment on above: Order Comment: Name Collection Type:: Clean-Voided Midstream Performed By: #### U RDS, UHCG, CUU, ADDONUAPLUS #### [address] Specificy [place],Urine 1.025 Normal 1.001-1.03 0 [facility] Comment on above: Order Comment: Name Collection Type:: Clean-Voided Midstream Performed By: #### U RDS, UHCG, CUU, ADDONUAPLUS #### [facility] [address] [place] [address] Squamous Epithelial Cell,Urine 3-4 High 0-2 [facility] Comment on above: Order Comment: Name Collection Type:: Clean-Voided Midstream Performed By: #### U RDS, UHCG, CUU, ADDONUAPLUS #### [facility] [address] [place] [address] Urobilinogen,Urine Normal Normal Normal [facility] Comment on above: Order Comment: Name Collection Type:: Clean-Voided Midstream Performed By: #### U RDS, UHCG, CUU, ADDONUAPLUS #### [facility] [address] [place] [address] [place] WBC,Urine 10-19 High 0-4 [facility] Comment on above: Order Comment: Name Collection Type:: Clean-Voided Midstream Performed By: #### U RDS, UHCG, CUU, ADDONUAPLUS #### [facility] [address] [place] [address] Drug Screen,Urineon 12-20-19 Amphetamine Screen,Urine Negative Normal Negative [facility] Comment on above: Performed By: #### U RDS, UHCG, CUU, ADDONUAPLUS #### [address] Barbiturate Screen,Urine Negative Normal Negative [facility] Comment on above: Performed By: #### U RDS, UHCG, CUU, ADDONUAPLUS #### [address] Benzodiazepines Screen,Urine Negative Normal Negative [facility] Comment on above: Performed By: #### U RDS, UHCG, CUU, ADDONUAPLUS #### [address] Cannabinoid Screen,Urine Positive High Negative [facility] Comment on above: Result Comment: Thes e are unconfirmed results and should not be used for legal purposes. Drug Cut-Off Concentration: AMPH 1000 ng/mL SEEMA 200 ng/mL LAZ 200 ng/mL COCM 300 ng/mL OP 300 ng/mL PCP 25 ng/mL THC 20 ng/mL PERFORMED BY: [place] [address] PATHOLOGIST DIRECTOR DIGITAL ADVERTISING MALVIN MEDLEY M.D. Performed By: #### U RDS, UHCG, CUU, ADDONUAPLUS #### [address] Cocaine Screen,Urine Negative Normal Negative [facility] Comment on above: Performed By: #### U RDS, UHCG, CUU, ADDONUAPLUS #### [address] Opiate Screen,Urine Negative Normal Negative [facility] Comment on above: Performed By: #### U RDS, UHCG, CUU, ADDONUAPLUS #### [address] Phencyclidine Screen,Urine Negative Normal Negative [facility] Comment on above: Performed By: #### U RDS, UHCG, CUU, ADDONUAPLUS #### [address] ECG 12 lead ECGon 12-19-2022 ECG 12 lead ECG [facility] Main [place] [id number] Electrocardiograph Report Signed Patient: Zuleika Wyatt MR#: [id number] : 1990 Acct:[id number] Age/Sex: 32 / F ADM Date: 12/19/22 Loc: Room: [address] [place] [address] Type: DIS INOo Attending Dr: Arden Orozco [...] ECGs available Confirmed by OSCAR POE DO ([id number]) on 12/19/2022 10:18:39 PM Referred By: Electronically Signed By:OSCAR POE DO Transcribed By: MUS Signed By Oscar Poe DO 12/193 Normal [facility] Electrolyteson 12-19-2022 Anion gap [Moles/Vol] 14.5 mmol/L Normal 6.0-15.0 [facility] Comment on above: Performed By: #### C BC, CREAT, GLU, LYTES, AST, ETOH, BARB, LIPASE, CK, BUN ####[facility] [id number] [place] [id number] [facility] Chloride [Moles/Vol] 105 mmol/L Normal 98-107 [facility] Comment on above: Performed By: #### C BC, CREAT, GLU, LYTES, AST, ETOH, BARB, LIPASE, CK, BUN ####[facility] [place] [address] [facility] CO2 [Moles/Vol] 20.0 mmol/L Low 21.0-31.0 [facility] Comment on above: Performed By: #### C BC, CREAT, GLU, LYTES, AST, ETOH, BARB, LIPASE, CK, BUN ####[place] [address] [address] Potassium [Moles/Vol] 3.5 mmol/L Normal 3.5-5.1 [facility] Comment on above: Performed By: #### C BC, CREAT, GLU, LYTES, AST, ETOH, BARB, LIPASE, CK, BUN ####[address] Sodium [Moles/Vol] 136 mmol/L Normal 136-145 [facility] Comment on above: Performed By: #### C BC, CREAT, GLU, LYTES, AST, ETOH, BARB, LIPASE, CK, BUN ####[address] Ethyl Alcohol Profileon Ethanol [Mass/Vol] mg/dL Normal [facility] Comment on above: Performed By: #### C BC, CREAT, GLU, LYTES, AST, ETOH, BARB, LIPASE, CK, BUN ####[address] Percent Ethanol Not performed Normal [facility] Comment on above: Result Comment: PERF ORMED BY: [facility] [address] [place] [address] PATHOLOGIST DIRECTOR DIGITAL ADVERTISING MALVIN MEDLEY M.D. Performed By: #### C BC, CREAT, GLU, LYTES, AST, ETOH, BARB, LIPASE, CK, BUN ####[place] [id number] [facility] Glucoseon 12-19-2022 Glucose [Mass/Vol] 93 mg/dL Normal 70-100 [facility] Comment on above: Result Comment: [place] Glucose Reference Range is dependent on time and content of last meal. Glucose of more than 200 mg/dL in a nonstressed, ambulatory subject supports the diagnosis of Diabetes Mellitus. ADA recommended reference range Performed By: #### C BC, CREAT, GLU, LYTES, AST, ETOH, BARB, LIPASE, CK, BUN ####[facility] [id number] HCG ( test) IA.rapi d Ql (U)Ordered By: Oscar Poe on 12-19-2022 HCG ( test) Ql (U) Negative [facility] HCG,Qualitative Serumon 07-0 HCG,Qualitative Serum Negative Normal [facility] Comment on above: Result Comment: PERF ORMED BY: [place] [address] PATHOLOGIST DIRECTOR DIGITAL ADVERTISING MALVIN MEDLEY M.D. Performed By: #### H CGQUAL #### [facility] [address] HCG,Urineon 12-19-2022 Beta HCG ( test) Ql (U) Negative Normal [facility] Comment on above: Order Comment: Name Collection Type:: Clean-Voided Midstream Result Comment: PERF ORMED BY: [place] [address] PATHOLOGIST DIRECTOR DIGITAL ADVERTISING MALVIN MEDLEY M.D. Performed By: #### U RDS, UHCG, CUU, ADDONUAPLUS #### [address] Ketones Auto test strip (U) [Mass/Vol]Ordered By: Oscar Poe on 12-19-2022 Ketones (U) [Mass/Vol] 1+ Negative [facility] - UrinalysisOrder ed By: Oscar Poe on 12-19-2022 Hyaline casts LM Ql (Urine sed) 0-8 [LPF] 0-8 [facility] Lipaseon 12-19-2022 Lipase [Catalytic activity/Vol] 29.0 U/L Normal 11.0-82.0 [facility] Comment on above: Result Comment: PERF ORMED BY: [facility] [address] [place] [address] PATHOLOGIST DIRECTOR DIGITAL ADVERTISING MALVIN MEDLEY M.D. Performed By: #### C BC, CREAT, GLU, LYTES, AST, ETOH, BARB, LIPASE, CK, BUN ####[facility] [id number] [place] [address] [facility] Nitrite Test strip Ql (U)Ord ered By: Oscar Poe on 12-19-2022 Nitrite Ql (U) Negative Negative [facility] Opiates [Presence] in Urine by Screen methodOrdered By: Oscar Poe on 12-19-2022 Opiates Screen Ql (U) Negative Negative [facility] Phencyclidine Screen Ql (U)O rdered By: Oscar Poe on 12-19-2022 Phencyclidine Ql (U) Negative Negative [facility] Protein Auto test strip (U) [Mass/Vol]Ordered By: Oscar Poe on 12-19-2022 Protein (U) [Mass/Vol] Negative Negative [facility] Specific gravity Auto test s trip (U) [Rel density]Ordered By: Oscar Poe on 12-19-2022 Specific gravity (U) [Rel density] 1.025 1.001-1.03 0 [facility] Squamous epithelial cells de tection in urine sediment by light microscopyOrdered By: Oscar Poe on 12-19-2022 Epithelial cells.squamous LM Ql (Urine sed) 3-4 [HPF] 0-2 [facility] Type and Screenon 12-19-2022 ABO and Rh group Nom (Bld) Blood group A Rh(D) positive Normal [facility] Comment on above: Result Comment: PERF ORMED BY: [facility] [address] [place] [address] PATHOLOGIST DIRECTOR DIGITAL ADVERTISING MALVIN MEDLEY M.D. Urine Cultureon 12-19-2022 Bacteria identified Cx Nom (U) >100,000 colonies/ml mixed bacterial skin contaminants 2 Days PERFORMED BY: [facility] [address] [facility] [address] PATHOLOGIST DIRECTOR DIGITAL ADVERTISING MALVIN MEDLEY M.D. [facility] Comment on above: Performed By: #### U RDS, UHCG, CUU, ADDONUAPLUS ####[facility] [id number] [place] [address] [facility] Urine bacteria detection by automated methodOrdered By: Oscar Poe on 12-19-2022 Bacteria Auto Ql (U) None seen None Seen [facility] Urine clarity by refractomet ry automatedOrdered By: Oscar Poe on 12-19-2022 Clarity Refractometry automated (U) Clear Clear [facility] Urine culture routineOrdered By: Oscar Poe on 12-19-2022 Bacteria identified Cx Nom (U) 2 Days [facility] Urine glucose measurement by automated test strip (mass/volume)Ordered By: Oscar Poe on 12-19-2022 Glucose Auto test strip (U) [Mass/Vol] Normal mg/dL Normal [facility] Urine hemoglobin detection b y automated test stripOrdered By: Oscar Poe on 12-19-2022 Hemoglobin Auto test strip Ql (U) Negative Negative [facility] Urine leukocyte esterase det ection by automated test stripOrdered By: Oscar Poe on 12-19-2022 Leukocyte esterase Auto test strip Ql (U) 2+ Negative [facility] Urobilinogen Auto test strip (U) [Mass/Vol]Ordered By: Oscar Poe on 12-19-2022 Urobilinogen (U) [Mass/Vol] Normal mg/dL Normal [facility] XR knee BI 2Von 12-19-2022 XR knee BI 2V [facility] [place] [address] XRay Report Signed Patient: Zuleika Wyatt MR#: [id number] : 1990 Acct:[id number] Age/Sex: 32 / F ADM Date: 12/19/22 Loc: Room: [address] [place] [address] Type: ADM INOo Attending Dr: Arden Orozco DO Copies to: DO Arden Jefferson DO Ordering Provider: Oscar Poe DO Date of Service: 12/18/22 XR/XR knee BI 2V: f ([id number]) XR/XR chest 1V portable: TRAUMATIC INJURY ([id number]) XR/XR pelvis 1-2V: f ([id number]) XR/XR foot LT 2V: f CLINICAL DATA: [...] Adela Mahan M.D.12/19/2022 10:41 AM Dictation Location: [place] [address] Transcribed By: [facility] 12/19/22 1041 Dictated By: Adela Mahan MD 12/19/22 1036 Signed By: 12/19/22 1041 Normal [facility] pH Auto test strip (U)Ordere d By: Oscar Poe on 12-19-2022 pH (U) 5.5 [pH] 5.0-9.0 [facility] Amylase [Enzymatic activity/ volume] in Serum or PlasmaOrdered By: Oscar Poe on 12-18-2022 Amylase [Catalytic activity/Vol] 35 U/L 29-103 [facility] Aspartate aminotransferase [ Enzymatic activity/volume] in Serum or PlasmaOrdered By: Oscar Poe on 12-18-2022 AST [Catalytic activity/Vol] 26 U/L 13-39 [facility] Basophils Auto (Bld) [#/Vol] Ordered By: Oscar Poe on 12-18-2022 Basophils (Bld) [#/Vol] 0.1 10*3/uL 0.0-0.2 [facility] Basophils/100 WBC Auto (Bld) Ordered By: Oscar Poe on 12-18-2022 Basophils/100 WBC (Bld) 0.7 % . [facility] Carbon dioxide, total [Moles /volume] in Serum or PlasmaOrdered By: Oscar Poe on 12-18-2022 CO2 [Moles/Vol] 20.0 mmol/L 21.0-31.0 [facility] Chloride [Moles/volume] in S gwendolyn or PlasmaOrdered By: Oscar Poe on 12-18-2022 Chloride [Moles/Vol] 105 mmol/L 98-107 [facility] Choriogonadotropin.beta subu nit [Units/volume] in Serum or PlasmaOrdered By: Oscar Poe on 12-18-2022 HCG.beta subunit Qn Negative [facility] Creatine kinase [Enzymatic a ctivity/volume] in Serum or PlasmaOrdered By: Oscar Poe on 12-18-2022 CK [Catalytic activity/Vol] 50 U/L 30-223 [facility] Creatinine [Mass/volume] in Serum or PlasmaOrdered By: Oscar Poe on 12-18-2022 Creatinine [Mass/Vol] 0.84 mg/dL 0.60-1.20 [facility] Eosinophils Auto (Bld) [#/Vo l]Ordered By: Oscar Poe on 12-18-2022 Eosinophils (Bld) [#/Vol] 0.0 10*3/uL 0.0-0.45 [facility] Eosinophils/100 WBC Auto (Bl d)Ordered By: Oscar Poe on 12-18-2022 Eosinophils/100 WBC (Bld) 0.2 % . [facility] Erythrocyte distribution wid th Auto (RBC) [Ratio]Ordered By: Oscar Poe on 12-18-2022 Erythrocyte distribution width (RBC) [Ratio] 14.4 % 11.9-15.3 [facility] Ethanol [Mass/volume] in Ser um or PlasmaOrdered By: Oscar Poe on 12-18-2022 Ethanol [Mass/Vol] mg/dL [facility] Ethanol [Mass/Vol] TNP [facility] Comment on above: Test not performed Glucose [Mass/volume] in Ser um or PlasmaOrdered By: Oscar Poe on 12-18-2022 Glucose [Mass/Vol] 93 mg/dL 70-100 [facility] Comment on above: ADA recommended refe rence rangeRandom Glucose Reference Range is dependent on time and content of last meal. Glucose of more than 200 mg/dL in a nonstressed, ambulatory subject supports the diagnosis of Diabetes Mellitus. Hematocrit Auto (Bld) [Volum e fraction]Ordered By: Oscar Poe on 12-18-2022 Hematocrit (Bld) [Volume fraction] 36.2 % 34.0-46.4 [facility] Hemoglobin [Mass/volume] in BloodOrdered By: Oscar Poe on 12-18-2022 Hemoglobin (Bld) [Mass/Vol] 11.9 g/dL 11.8-15.4 [facility] Leukocytes [#/volume] correc osmel for nucleated erythrocytes in Blood by Automated counOrdered By: Oscar Poe on 12-18-2022 WBC corrected for nucl RBC Auto (Bld) [#/Vol] 10.3 10*3/uL 3.8-11.6 [facility] Lipase [Enzymatic activity/v olume] in Serum or PlasmaOrdered By: Oscar Poe on 12-18-2022 Lipase [Catalytic activity/Vol] 29.0 U/L 11.0-82.0 [facility] Lymphocytes Auto (Bld) [#/Vo l]Ordered By: Oscar Poe on 12-18-2022 Lymphocytes (Bld) [#/Vol] 2.2 10*3/uL 1.00-4.8 [facility] Lymphocytes/100 WBC Auto (Bl d)Ordered By: Oscar Poe on 12-18-2022 Lymphocytes/100 WBC (Bld) 21.8 % . [facility] MCH Auto (RBC) [Entitic mass ]Ordered By: Oscar Poe on 12-18-2022 MCH (RBC) [Entitic mass] 26.9 pg 24.7-34.3 [facility] MCHC Auto (RBC) [Mass/Vol]Or dered By: Oscar Poe on 12-18-2022 MCHC (RBC) [Mass/Vol] 32.8 g/dL 32.0-35.0 [facility] MCV Auto (RBC) [Entitic vol] Ordered By: Oscar Poe on 12-18-2022 MCV (RBC) [Entitic vol] 82.1 fL 80-100 [facility] Monocyte distribution width [Entitic volume] in Blood by AutomatedOrdered By: Oscar Poe on 12-18-2022 Monocyte distribution width Auto (Bld) [Entitic vol] 22.19 % 0.00-20.00 [facility] Comment on above: For adults in ED, MD W > 20.0 may be associated with a higher risk of sepsis during the first 12 hrs of hospital admission Monocytes Auto (Bld) [#/Vol] Ordered By: Oscar Poe on 12-18-2022 Monocytes (Bld) [#/Vol] 0.8 10*3/uL 0.0-0.8 [facility] Monocytes/100 WBC Auto (Bld) Ordered By: Oscar Poe on 12-18-2022 Monocytes/100 WBC (Bld) 7.4 % . [facility] Neutrophils Auto (Bld) [#/Vo l]Ordered By: Oscar Poe on 12-18-2022 Neutrophils (Bld) [#/Vol] 7.2 10*3/uL 1.8-7.7 [facility] Neutrophils/100 WBC Auto (Bl d)Ordered By: Oscar Poe on 12-18-2022 Neutrophils/100 WBC (Bld) 69.9 % . [facility] No Panel InformationOrdered By: Oscar Poe on 12-18-2022 Estimated GFR (CKD-EPI) > 60.0 mL/Min [facility] Creatinine Clearance (Chem 98.76 [facility] Nucleated erythrocytes [Pres ence] in Blood by Automated countOrdered By: Oscar Poe on 12-18-2022 Nucleated RBC Auto Ql (Bld) 0.1 /100{WBC} 0-0.5 [facility] Platelet mean volume Auto (B ld) [Entitic vol]Ordered By: Oscar Poe on 12-18-2022 Platelet mean volume (Bld) [Entitic vol] 8.1 fL 6.3-10.7 [facility] Platelets Auto (Bld) [#/Vol] Ordered By: Oscar Poe on 12-18-2022 Platelets (Bld) [#/Vol] 223 10*3/uL 150-450 [facility] Potassium [Moles/volume] in Serum or PlasmaOrdered By: Oscar Poe on 12-18-2022 Potassium [Moles/Vol] 3.5 mmol/L 3.5-5.1 [facility] RBC Auto (Bld) [#/Vol]Ordere d By: Oscar Poe on 12-18-2022 RBC (Bld) [#/Vol] 4.42 10*6/uL 3.60-5.00 [facility] Serum or plasma anion gap de terminationOrdered By: Oscar Poe on 12-18-2022 Anion gap [Moles/Vol] 14.5 mmol/L 6.0-15.0 [facility] Sodium [Moles/volume] in Ser um or PlasmaOrdered By: Oscar Poe on 12-18-2022 Sodium [Moles/Vol] 136 mmol/L 136-145 [facility] Urea nitrogen [Mass/volume] in Serum or PlasmaOrdered By: Oscar Poe on 12-18-2022 Urea nitrogen [Mass/Vol] 21 mg/dL 7-25 [facility] WBC Auto (Bld) [#/Vol]Ordere d By: Oscar Poe on 12-18-2022 WBC (Bld) [#/Vol] 10.3 10*3/uL 3.8-11.6 [facility] PRBC LEUKOREDUCEDon 07-14-19 23 ABO and Rh group Nom (Bld) Cross Match Result Compatible Unit Blood Type A Pos Unit Number [id number] Status Information Released Specimen Exp Date Product ID Red Blood Cells Product Code [id number] Cross Match Result Compatible Unit Blood Type A Pos Unit Number [id number] Status Information Transfused Product ID Red Blood Cells Product Code [id number] Normal [facility] Comment on above: Performed By: #### R UBIGG #### [facility] [address] [place] [address] Dr. Juan Antonio Ibarra CBC AUTO DIFFon 07-07-2022 BASO # 0.0 103/ul Normal 0.0-0.1 [facility] Comment on above: Performed By: #### A 1C #### [facility] [address] [place] [address] Dr. Juan Antonio Ibarra Basophils/100 WBC (Bld) 0.3 % Normal 0.2-2.0 [facility] Comment on above: Performed By: #### A 1C #### [facility] [address] [place] [address] Dr. Juan Antonio Ibarra EO # 0.1 103/ul Normal 0.0-0.7 [facility] Comment on above: Performed By: #### A 1C #### [facility] [address] [place] [address] Dr. Juan Antonio Ibarra Eosinophils/100 WBC (Bld) 0.9 % Normal 0.9-7.0 [facility] Comment on above: Performed By: #### A 1C #### [facility] [address] [place] [address] Dr. Juan Antonio Ibarra Erythrocyte distribution width (RBC) [Ratio] 14.5 % Normal 11.0-15.0 [facility] Comment on above: Performed By: #### A 1C #### [facility] [address] [place] [address] Dr. Juan Antonio Ibarra Hematocrit (Bld) [Volume fraction] 22.5 % Critically low 36.0-48.0 [facility] Comment on above: Performed By: #### A 1C #### [facility] [address] [place] [address] Dr. Juan Antonio Ibarra Hemoglobin (Bld) [Mass/Vol] 7.9 g/dL Critically low 12.0-16.0 [facility] Comment on above: Performed By: #### A 1C #### [facility] [address] [place] [address] Dr. Juan Antonio Ibarra IG # 0.10 10e3/ul Critically high 0.00-0.03 [facility] Comment on above: Performed By: #### A 1C #### [facility] [address] [place] [address] Dr. Juan Antonio Ibarra IG % 0.9 % Critically high 0.0-0.5 [facility] Comment on above: Performed By: #### A 1C #### [facility] [address] [place] [address] Dr. Juan Antonio Ibarra LYMPH # 1.6 103/ul Normal 1.2-3.8 [facility] Comment on above: Performed By: #### A 1C #### [facility] [address] [place] [address] Dr. Juan Antonio Ibarra Lymphocytes/100 WBC (Bld) 14.0 % Critically low 20.5-60.0 [facility] Comment on above: Performed By: #### A 1C #### [facility] [address] [place] [address] Dr. Juan Antonio Ibarra MANUAL DIFF REQ NO Normal [facility] Comment on above: Performed By: #### A 1C #### [facility] [address] [place] [address] Dr. Juan Antonio Ibarra MCH (RBC) [Entitic mass] 26.4 pg Critically low 26.7-34.0 [facility] Comment on above: Performed By: #### A 1C #### [facility] [address] [place] [address] Dr. Juan Antonio Ibarra MCHC (RBC) [Mass/Vol] 35.1 g/dL Normal 29.9-35.2 [facility] Comment on above: Performed By: #### A 1C #### [facility] [address] [place] [address] Dr. Juan Antonio Ibarra MCV (RBC) [Entitic vol] 75.3 fL Critically low 81.0-99.0 [facility] Comment on above: Performed By: #### A 1C #### [facility] [address] [place] [address] Dr. Juan Antonio Ibarra MONO # 0.7 103/ul Normal 0.3-0.8 [facility] Comment on above: Performed By: #### A 1C #### [facility] [address] [place] [address] Dr. Juan Antonio Ibarra Monocytes/100 WBC (Bld) 6.2 % Normal 1.7-12.0 [facility] Comment on above: Performed By: #### A 1C #### [facility] [address] [address] [address] Juan Antonio Ibarra NEUT # 9.1 103/ul Critically high 1.4-6.5 [facility] Comment on above: Performed By: #### A 1C #### [facility] [address] [place] [address] Dr. Juan Antonio Ibarra Neutrophils/100 WBC (Bld) 77.7 % Critically high 43.0-75.0 [facility] Comment on above: Performed By: #### A 1C #### [facility] [address] [place] [address] Dr. Juan Antonio Ibarra Platelet mean volume (Bld) [Entitic vol] 9.2 fL Critically low 9.5-13.5 [facility] Comment on above: Performed By: #### A 1C #### [facility] [address] [place] [address] Dr. Juan Antonio Ibarra PLT 143 103/ul Critically low 150-450 [facility] Comment on above: Performed By: #### A 1C #### [facility] [address] [place] [address] Dr. Juan Antonio Ibarra RBC 2.99 106/ul Critically low 4.20-5.40 [facility] Comment on above: Performed By: #### A 1C #### [facility] [address] [place] [address] Dr. Juan Antonio Ibarra WBC 11.7 103/ul Critically high 4.0-11.0 [facility] Comment on above: Performed By: #### A 1C #### [facility] [address] [place] [address] Dr. Juan Antonio Ibarra CBC AUTO DIFFon 07-06-2022 BASO # 0.0 103/ul Normal 0.0-0.1 [facility] Comment on above: Performed By: #### A 1C #### [facility] [address] [place] [address] Dr. Juan Antonio Ibarra Basophils/100 WBC (Bld) 0.3 % Normal 0.2-2.0 [facility] Comment on above: Performed By: #### A 1C #### [facility] [address] [place] [address] Dr. Juan Antonio Ibarra EO # 0.1 103/ul Normal 0.0-0.7 [facility] Comment on above: Performed By: #### A 1C #### [facility] [address] [place] [address] Dr. Juan Antonio Ibarra Eosinophils/100 WBC (Bld) 0.8 % Critically low 0.9-7.0 [facility] Comment on above: Performed By: #### A 1C #### [facility] [address] [place] [address] Dr. Juan Antonio Ibarra Erythrocyte distribution width (RBC) [Ratio] 14.3 % Normal 11.0-15.0 [facility] Comment on above: Performed By: #### A 1C #### [facility] [address] [place] [address] Dr. Juan Antonio Ibarra Hematocrit (Bld) [Volume fraction] 23.0 % Critically low 36.0-48.0 [facility] Comment on above: Performed By: #### A 1C #### [facility] [address] [place] [address] Dr. Juan Antonio Ibarra Hemoglobin (Bld) [Mass/Vol] 7.5 g/dL Critically low 12.0-16.0 [facility] Comment on above: Performed By: #### A 1C #### [facility] [address] [place] [address] Dr. Juan Antonio Ibarra IG # 0.07 10e3/ul Critically high 0.00-0.03 [facility] Comment on above: Performed By: #### A 1C #### [facility] [address] [place] [address] Dr. Juan Antonio Ibarra IG % 0.6 % Critically high 0.0-0.5 [facility] Comment on above: Performed By: #### A 1C #### [facility] [address] [place] [address] Dr. Juan Antonio Ibarra LYMPH # 2.1 103/ul Normal 1.2-3.8 [facility] Comment on above: Performed By: #### A 1C #### [facility] [address] [place] [address] Dr. Juan Antonio Ibarra Lymphocytes/100 WBC (Bld) 18.8 % Critically low 20.5-60.0 [facility] Comment on above: Performed By: #### A 1C #### [facility] [address] [place] [address] Dr. Juan Antonio Ibarra MANUAL DIFF REQ NO Normal [facility] Comment on above: Performed By: #### A 1C #### [facility] [address] [place] [address] Dr. Juan Antonio Ibarra MCH (RBC) [Entitic mass] 26.0 pg Critically low 26.7-34.0 [facility] Comment on above: Performed By: #### A 1C #### [facility] [address] [place] [address] Dr. Juan Antonio Ibarra MCHC (RBC) [Mass/Vol] 32.6 g/dL Normal 29.9-35.2 [facility] Comment on above: Performed By: #### A 1C #### [facility] [address] [place] [address] Dr. Juan Antonio Ibarra MCV (RBC) [Entitic vol] 79.9 fL Critically low 81.0-99.0 [facility] Comment on above: Performed By: #### A 1C #### [facility] [address] [place] [address] Dr. Juan Antonio Ibarra MONO # 0.7 103/ul Normal 0.3-0.8 [facility] Comment on above: Performed By: #### A 1C #### [facility] [address] [place] [address] Dr. Juan Antonio Ibarra Monocytes/100 WBC (Bld) 6.6 % Normal 1.7-12.0 [facility] Comment on above: Performed By: #### A 1C #### [facility] [address] [place] [address] Dr. Juan Antonio Ibarra NEUT # 8.2 103/ul Critically high 1.4-6.5 [facility] Comment on above: Performed By: #### A 1C #### [facility] [address] [place] [address] Dr. Juan Antonio Ibarra Neutrophils/100 WBC (Bld) 72.9 % Normal 43.0-75.0 [facility] Comment on above: Performed By: #### A 1C #### [facility] [address] [place] [address] Dr. Juan Antonio Ibarra Platelet mean volume (Bld) [Entitic vol] 9.8 fL Normal 9.5-13.5 [facility] Comment on above: Performed By: #### A 1C #### [facility] [address] [place] [address] Dr. Juan Antonio Ibarra PLT 151 103/ul Normal 150-450 [facility] Comment on above: Performed By: #### A 1C #### [facility] [address] [place] [address] Dr. Juan Antonio Ibarra RBC 2.88 106/ul Critically low 4.20-5.40 [facility] Comment on above: Performed By: #### A 1C #### [facility] [address] [place] [address] Dr. Juan Antonio Ibarra WBC 11.3 103/ul Critically high 4.0-11.0 [facility] Comment on above: Performed By: #### A 1C #### [facility] [address] [place] [address] Dr. Juan Antonio Ibarra CBC AUTO DIFFon 07-05-2022 BASO # 0.0 103/ul Normal 0.0-0.1 [facility] Comment on above: Performed By: #### R PRQ #### [facility] [address] [place] [address] Dr. Juan Antonio Ibarra Basophils/100 WBC (Bld) 0.2 % Normal 0.2-2.0 [facility] Comment on above: Performed By: #### R PRQ #### [facility] [address] [place] [address] Dr. Juan Antonio Ibarra EO # 0.0 103/ul Normal 0.0-0.7 [facility] Comment on above: Performed By: #### R PRQ #### [facility] [address] [address] [address] Juan Antonio Ibarra Eosinophils/100 WBC (Bld) 0.4 % Critically low 0.9-7.0 [facility] Comment on above: Performed By: #### R PRQ #### [facility] [address] [place] [address] Dr. Juan Antonio Ibarra Erythrocyte distribution width (RBC) [Ratio] 14.2 % Normal 11.0-15.0 [facility] Comment on above: Performed By: #### R PRQ #### [facility] [address] [place] [address] Dr. Juan Antonio Ibarra Hematocrit (Bld) [Volume fraction] 31.0 % Critically low 36.0-48.0 [facility] Comment on above: Performed By: #### R PRQ #### [facility] [address] [place] [address] Dr. Juan Antonio Ibarra Hemoglobin (Bld) [Mass/Vol] 10.1 g/dL Critically low 12.0-16.0 [facility] Comment on above: Performed By: #### R PRQ #### [facility] [address] [place] [address] Dr. Juan Antonio Ibarra IG # 0.10 10e3/ul Critically high 0.00-0.03 [facility] Comment on above: Performed By: #### R PRQ #### [facility] [address] [place] [address] Dr. Juan Antonio Ibarra IG % 1.1 % Critically high 0.0-0.5 [facility] Comment on above: Performed By: #### R PRQ #### [facility] [address] [place] [address] Dr. Juan Antonio Ibarra LYMPH # 1.6 103/ul Normal 1.2-3.8 [facility] Comment on above: Performed By: #### R PRQ #### [facility] [address] [place] [address] Dr. Juan Antonio Ibarra Lymphocytes/100 WBC (Bld) 17.5 % Critically low 20.5-60.0 [facility] Comment on above: Performed By: #### R PRQ #### [facility] [address] [place] [address] Dr. Juan Antonio Ibarra MANUAL DIFF REQ NO Normal [facility] Comment on above: Performed By: #### R PRQ #### [facility] [address] [place] [address] Dr. Juan Antonio Ibarra MCH (RBC) [Entitic mass] 25.8 pg Critically low 26.7-34.0 [facility] Comment on above: Performed By: #### R PRQ #### [facility] [address] [place] [address] Dr. Juan Antonio Ibarra MCHC (RBC) [Mass/Vol] 32.6 g/dL Normal 29.9-35.2 [facility] Comment on above: Performed By: #### R PRQ #### [facility] [address] [place] [address] Dr. Juan Antonio Ibarra MCV (RBC) [Entitic vol] 79.3 fL Critically low 81.0-99.0 [facility] Comment on above: Performed By: #### R PRQ #### [facility] [address] [place] [address] Dr. Juan Antonio Ibarra MONO # 0.7 103/ul Normal 0.3-0.8 [facility] Comment on above: Performed By: #### R PRQ #### [facility] [address] [place] [address] Dr. Juan Antonio Ibarra Monocytes/100 WBC (Bld) 8.1 % Normal 1.7-12.0 [facility] Comment on above: Performed By: #### R PRQ #### [facility] [address] [place] [address] Dr. Juan Antonio Ibarra NEUT # 6.7 103/ul Critically high 1.4-6.5 [facility] Comment on above: Performed By: #### R PRQ #### [facility] [address] [place] [address] Dr. Juan Antonio Ibarra Neutrophils/100 WBC (Bld) 72.7 % Normal 43.0-75.0 [facility] Comment on above: Performed By: #### R PRQ #### [facility] [address] [place] [address] Dr. Juan Antonio Ibarra Platelet mean volume (Bld) [Entitic vol] 10.1 fL Normal 9.5-13.5 [facility] Comment on above: Performed By: #### R PRQ #### [facility] [address] [place] [address] Dr. Juan Antonio Ibarra PLT 202 103/ul Normal 150-450 [facility] Comment on above: Performed By: #### R PRQ #### [facility] [address] [place] [address] Dr. Juan Antonio Ibarra RBC 3.91 106/ul Critically low 4.20-5.40 [facility] Comment on above: Performed By: #### R PRQ #### [facility] [address] [place] [address] Dr. Juan Antonio Ibarra WBC 9.2 103/ul Normal 4.0-11.0 [facility] Comment on above: Performed By: #### R PRQ #### [facility] [address] [place] [address] Dr. Juan Antonio Ibarra DRUG SCREEN RAPID (URINE)on 07-05-2022 AMP Negative Normal NEGATIVE [facility] Comment on above: Performed By: #### A 1C #### [facility] [address] [place] [address] Dr. Juan Antonio Ibarra BAR Negative Normal NEGATIVE [facility] Comment on above: Performed By: #### A 1C #### [facility] [address] [place] [address] Dr. Juan Antonio Ibarra BUP Negative Normal NEGATIVE [facility] Comment on above: Performed By: #### A 1C #### [facility] [address] [place] [address] Dr. Juan Antonio Ibarra BZO Negative Normal NEGATIVE [facility] Comment on above: Performed By: #### A 1C #### [facility] [address] [place] [address] Dr. Juan Antonio Ibarra PARAM Negative Normal NEGATIVE [facility] Comment on above: Performed By: #### A 1C #### [facility] [address] [place] [address] Dr. Juan Antonio Ibarra CUT-OFFS SEE BELOW Normal [facility] Comment on above: Result Comment: [...] Performed By: #### A 1C #### [facility] [address] [place] [address] Dr. Juan Antonio Ibarra DRUG CUT HEADER DRUG CLASS TEST SYST EM CUT-OFF CONCENTRATIONS ARE FOLLOWS: Normal [facility] Comment on above: Performed By: #### A 1C #### [facility] [address] [place] [address] Dr. Juan Antonio Ibarra mAMP Negative Normal NEGATIVE [facility] Comment on above: Performed By: #### A 1C #### [facility] [address] [place] [address] Dr. Juan Antonio Ibarra MTD Negative Normal NEGATIVE [facility] Comment on above: Performed By: #### A 1C #### [facility] [address] [place] [address] Dr. Juan Antonio Ibarra OPI Negative Normal NEGATIVE [facility] Comment on above: Performed By: #### A 1C #### [facility] [address] [place] [address] Dr. Juan Antonio Ibarra OXY Negative Normal NEGATIVE [facility] Comment on above: Performed By: #### A 1C #### [facility] [address] [place] [address] Dr. Juan Antonio Ibarra PCP Negative Normal NEGATIVE [facility] Comment on above: Performed By: #### A 1C #### [facility] [address] [address] [address] Juan Antonio Ibarra PPX Negative Normal NEGATIVE [facility] Comment on above: Performed By: #### A 1C #### [facility] [address] [address] [address] Juan Antonio Ibarra TCA Negative Normal NEGATIVE [facility] Comment on above: Performed By: #### A 1C #### [facility] [address] [address] [address] Juan Antonio Ibarra THC Negative Normal NEGATIVE [facility] Comment on above: Performed By: #### A 1C #### [facility] [address] [address] [address] Juan Antonio Ibarra TYPE AND SCREENon 07-05-2022 TYPE AND SCREEN Negative Normal [facility] Comment on above: Performed By: #### T NS #### [facility] [address] [address] [address] Juan Antonio Ibarra US PREG BIOPHY [...] GOLDMAN Date: 2022-06-28 15:29 Normal [facility] US PREG BIOPHY W NON STRESSo [...] FELECIA GOLDMAN Date: 2022-06-21 17:20 Normal [facility] US PREG GROWTHon 06-21-2022 US PREG [...] CRUMP Date: 2022-06-21 13:37 Normal [facility] CULTURE URINEon 06-16-2022 CULTURE URINE Culture Observations : LIGHT GROWTH OF MIXED GENITAL ALONSO. NO POTENTIAL PATHOGENS SEEN. Normal [facility] Comment on above: Performed By: #### U RCX #### [facility] [address] [place] [address] Dr. Juan Antonio Ibarra UA (CLEAN/CATCH) LAMINATION BUILDER/MICRO I F IND.on 06-16-2022 Bilirubin Ql (U) Negative Normal NEGATIVE [facility] Comment on above: Performed By: #### U MICRO, UACSIND #### [facility] [address] [place] [address] Dr. Juan Antonio Ibarra Clarity (U) CLEAR Normal CLEAR [facility] Comment on above: Performed By: #### U MICRO, UACSIND #### [facility] [address] [place] [address] Dr. Juan Antonio Ibarra Color (U) LT. YELLOW Normal YELLOW [facility] Comment on above: Performed By: #### U MICRO, UACSIND #### [facility] [address] [address] [address] Juan Antonio Ibarra Glucose Ql (U) Negative Normal NEGATIVE [facility] Comment on above: Performed By: #### U MICRO, UACSIND #### [facility] [address] [address] [address] Juan Antonio Ibarra Hemoglobin Ql (U) Negative Normal NEGATIVE [facility] Comment on above: Performed By: #### U MICRO, UACSIND #### [facility] [address] [address] [address] Juan Antonio Ibarra Ketones Ql (U) Negative Normal NEGATIVE [facility] Comment on above: Performed By: #### U MICRO, UACSIND #### [facility] [address] [place] [address] Dr. Juan Antonio Ibarra LEUKOCYTES MODERATE Abnormal NEGATIVE [facility] Comment on above: Performed By: #### U MICRO, UACSIND #### [facility] [address] [place] [address] Dr. Juan Antonio Ibarra Nitrite Ql (U) Negative Normal NEGATIVE [facility] Comment on above: Performed By: #### U MICRO, UACSIND #### [facility] [address] [place] [address] Dr. Juan Antonio Ibarra pH (U) 6.0 [pH] Normal 5-9 [facility] Comment on above: Performed By: #### U MICRO, UACSIND #### [facility] [address] [place] [address] Dr. Juan Antonio Ibarra SPEC GRAVITY 1.020 Normal 1.005-<=1. 025 [facility] Comment on above: Performed By: #### U MICRO, UACSIND #### [facility] [address] [place] [address] Dr. Juan Antonio Ibarra UA PROTEIN Negative Normal NEGATIVE/ TRACE [facility] Comment on above: Performed By: #### U MICRO, UACSIND #### [facility] [address] [address] [address] Juan Antonio Ibarra UR MICRO IND INDICATED Normal [facility] Comment on above: Performed By: #### U MICRO, UACSIND #### [facility] [address] [place] [address] Dr. Juan Antonio Ibarra Urobilinogen Qn (U) 1.0 {Pamela'U}/dL Normal 0.2 - 1. 0 [facility] Comment on above: Performed By: #### U MICRO, UACSIND #### [facility] [address] [place] [address] Dr. Juan Antonio Ibarra URINE MICROSCOPIC ONLYon BACTERIA SMALL Abnormal NONE SEEN [facility] Comment on above: Performed By: #### U MICRO, UACSIND #### [facility] [address] [place] [address] Dr. Juan Antonio Ibarra Bacteria identified Cx Nom (U) INDICATED Normal [facility] Comment on above: Performed By: #### U MICRO, UACSIND #### [facility] [address] [place] [address] Dr. Juan Antonio Ibarra CAST NONE SEEN Normal NONE SEEN [facility] Comment on above: Performed By: #### U MICRO, UACSIND #### [facility] [address] [place] [address] Dr. Juan Antonio Ibarra Crystals LM Nom (Urine sed) NONE SEEN Normal NONE SEEN [facility] Comment on above: Performed By: #### U MICRO, UACSIND #### [facility] [address] [place] [address] Dr. Juan Antonio Ibarra Epithelial cells LM Ql (Urine sed) RARE Normal NONE SEEN /RARE [facility] Comment on above: Performed By: #### U MICRO, UACSIND #### [facility] [address] [place] [address] Dr. Juan Antonio Ibarra MUCOUS NONE SEEN Normal NONE SEEN [facility] Comment on above: Performed By: #### U MICRO, UACSIND #### [facility] [address] [place] [address] Dr. Juan Antonio Ibarra RBC NONE SEEN Abnormal 0-2 [facility] Comment on above: Performed By: #### U MICRO, UACSIND #### [facility] [address] [place], [place] [address] Dr. Juan Antonio Ibarra WBC 2-5 Abnormal NONE SEEN [facility] Comment on above: Performed By: #### U MICRO, UACSIND #### [facility] [address] [place], [place] [address] Dr. Juan Antonio Ibarra GROUP B STREP CULTUREon 05-18 S. agalactiae Ag Ql (Unsp spec) Culture Observations: NEGATIVE FOR GROUP B STREPTOCOCCUS. Normal [facility] Comment on above: Performed By: #### G BSCX #### [facility] [address] [place], [place] [address] Dr. Juan Antonio Ibarra US PREG BIOPHY [...] by: GAMALIEL CRUMP Date: 2022-06-14 16:10 Normal [facility] US PREG BIOPHY W NON [...] by: FELECIA GOLDMAN Date: 2022-06-07 16:42 Normal [facility] US PREG BIOPHY W NON [...] by: FELECIA GOLDMAN Date: 2022-06-04 17:11 Normal [facility] US PREG BIOPHY W NON [...] by: FELECIA GOLDMAN Date: 2022-06-04 16:23 Normal [facility] US PREG BIOPHY W NON [...] by: GAMALIEL CRUMP Date: 2022-05-31 18:39 Normal [facility] US PREG BIOPHY W NON [...] FELECIA GOLDMAN Date: 2022-05-24 16:34 Normal [facility] US PREG GROWTHon 05-24-2022 US PREG [...] GOLDMAN Date: 2022-05-24 16:33 Normal [facility] GLUCOSE - 1HRon 04-04-2022 Glucose [Mass/Vol] 101 mg/dL Normal 74-106 [facility] Comment on above: Performed By: #### R PRQ #### [facility] [address] [place] [address] Dr. Juan Antonio Ibarra HEMOGRAM AND PLATELon 2021 Hematocrit (Bld) [Volume fraction] 33.5 % Critically low 36.0-48.0 [facility] Comment on above: Performed By: #### A 1C #### [facility] [address] [place] [address] Dr. Juan Antonio Ibarra Hemoglobin (Bld) [Mass/Vol] 10.7 g/dL Critically low 12.0-16.0 [facility] Comment on above: Performed By: #### A 1C #### [facility] [address] [place] [address] Dr. Juan Antonio Ibarra MCH (RBC) [Entitic mass] 29.3 pg Normal 26.7-34.0 [facility] Comment on above: Performed By: #### A 1C #### [facility] [address] [place] [address] Dr. Juan Antonio Ibarra MCHC (RBC) [Mass/Vol] 31.9 g/dL Normal 29.9-35.2 [facility] Comment on above: Performed By: #### A 1C #### [facility] [address] [place] [address] Dr. Juan Antonio Ibarra MCV (RBC) [Entitic vol] 91.8 fL Normal 81.0-99.0 [facility] Comment on above: Performed By: #### A 1C #### [facility] [address] [place] [address] Dr. Juan Antonio Ibarra PLT 179 103/ul Normal 150-450 [facility] Comment on above: Performed By: #### A 1C #### [facility] [address] [place] [address] Dr. Juan Antonio Ibarra RBC 3.65 106/ul Critically low 4.20-5.40 [facility] Comment on above: Performed By: #### A 1C #### [facility] [address] [place] [address] Dr. Juan Antonio Ibarra WBC 9.9 103/ul Normal 4.0-11.0 [facility] Comment on above: Performed By: #### A 1C #### [facility] [address] [place] [address] Dr. Juan Antonio Ibarra US PREG REEVAL [...] by: FELECIA GOLDMAN Date: 2022-03-20 20:55 Normal [facility] US PREG ANATOMY SINGLEon US [...] by: FELECIA GOLDMAN Date: 2022-02-22 16:46 Normal [facility] Coding Summaryon 02-14-2022 Coding Summary HTMLBase 64 UtffyftmDWo7fUo+PGhlYWQ+PE 8UMKJtH60fvFJdpC5KY1eRFR5J MEGJOAPUYV1JSZ9seJV7HKxlR7 VybiAv TktqtOWzSX15GUm6HZK9eOcdZU pwnJ2jgOQpI9w9ZtUuYI07jU76 GPbuXHNzZdZ6DcDutfwmlZLr C1sbSzNlrYDgMmq+PHRhYmxlIH efOYIiGClsOQTvZnGdfUynZJ0o Xd1dJCFxNFZbdXwboZSfYmUd b9qaACGaXVlmUS6cnTkcA9EisB G0GAFrg8t9Kk77rSQ+PHRkIHN0 dCleGBnlp058PvUvt7mnAFC9 gKWzREmkMTN1J09gh9Z2LSVwAI IjUAC0gUN6cG1mkZedvafdT8Ni uIEtOzO4KYE3pCDhhF7agXnv vvlkwU9gXnx+D19DLF7SEPSJRR 9ECpz1C9KtGudsrJH+TD25DDVd XO74hSEtfGSnv5mhxKg1LjYg GYAdJRI3zLckLCsyg7OaSKXtT3 8phNBwf2A6LHXtiLtzsSHeWiVn sRO0mM1wPLblwfucj0lnrweq Mgyeu3kcmp95sC34Z38ePZmaEJ MbNAI1NXUoUHTzrCcrmy7moU8z Ii8+YAdjo6paq0sswEd8IdUd LYDpcvCvyTkrOAV8l1FlMv95L8 IirYcgj5KbYcb2sj51sDDgg9U6 vMO7BIwhCORieG4mLRioQwN4 SRYiBvSlwL47sFVaLFnlLc4ykC mssVuuZT7pWKTyeugkHGDsuI9t GUHdaHBtdSruQP8zKAEizrvk l551DsSzEWW5KETgbHRzT8DkhG 7uBjObTIAmUPIkH7YstZWoZWdg D349GHxkLkQ9KVVlqcJeI8Ef IONmeVrcSeE4f3M2Cx4Wl3Pocy wdNWA9WHqpTMP2VxZqFrKoCzC6 T2PdKhk7YEEaoJjcLD6aP8Ja FBSqlbrsoiiryJN1JJTyOMWioQ 64bVOwQFqgLq2jf2P6r100YMVh QWBtnL65Yx5lpUsaUQCquJWH dI3okrzjh4jjrembByZdKDBpZZ f7XKl8SDXfyGzaGrVpRFB7TuL1 PJB7oEEgmB0toHszlbkhjG2u Oyc+U09jtQ6yERK8DKL7xhzlEI IwsgYuSK82CN72J5UoVthhgACc bGU+PGAcomFjtWblOF7bTnWj x4xlt2DuERydX1DvPUDpDEplKf b5UPPmRXF7cKY8qM9hNXYuHRpd e1C8dLU9X1QaokIihw4gr2xe XYOgBOhiW18bjMFqg7K5IVEzbR M6ASAufDeaYsAyeL60Vip+PGNv xHrvu1KwSjgul7mjc2qrzHl5 BhHuYSKraqYofYbsKAW6k0IqUc 23W81sSDddHROkPJDhVIWpLVCs rBbveo1zyZ7kSe1+PGNvbCB3 iOU6hK0gOFUyYfT5AOioY387Si OziFZwTqxcn3ojm7iunGa0LlCn RLZvzpLpoRlzGQA1x4XkZd85 U20gJAnnLBMcBLCcJJCmPNKxqH oedh4ccY6zCy3+EU8ai1kuid98 cU96hEY+DUFwBXN9jQmlLJdk QROigO0xRCkmCjK0KAMdQdXjvH 57wZJnRMknVl5ogQawuMkyAX8z AXZytddyh266YuTfw4gwCEIc zGHjOXwiZTK0J52on9H2TFRfUR RxUDU2rET2gD9kiVxmnrhxkZQc tOvcgcSjoHdjBKlgEMkuZ866 IHRvcDsnPlBhdGllbnQgTmFtZT p0N9FtWmw0YYUdcYalNV1ujUAv WYvcKv4ckWcgxMrmVX7bYWQd ponbg640VpUxm1aoBSSdfHNoIK ppRXT0F42ez6M5XHCzMYQyWQY9 aMR0iB2tnKbktxyvxTUazCvp qiDqrMjvQWvvQBnoV507POZnyI aeFtAixbEpNBZmkBJ8MW11NR66 xWJfu6G1wJT7Q0NtIPJxwzks lnzthPM4VCEwJBMxqQ93Gc5dqB syKx3oFGAkUIF8GNJhlJIsT7Oy pE4zVyNnSJTjCIVyH6UtaPQi ISkpG584LBbmSgP4CJXjztPyG4 SeZTOglDohPgZ9v2U7Fk5VD9M8 YM16CQ00uCSom6R7xKR7P5Gq MXIuvktwfdqaxUA1BRJeJDLnkL 59Fh2egYzoGq7vUTAuQJX8NGQw nLYhX5IxaZ9iVxEzCVDfIFHm R2IsrHDxCZfiC016IKpwKgW7JG YepaVlR4WgQTBhzRnaUuI0q1D8 Ct0GIZd9YE43JQ65yYLst1N7 vVU4T3OtCFYrdpkjownutIL7QE MeZNGeoX30Bj7pqUmpJk0hGMKa KQA6VNDkbNUcH2WwzJ7fXaAr BCOtTBJeO8MvoHMmTWwbC728BF grVjI1TNGgnlWjB3MfNAWslVks OhJ1t3U3Jb7MCAPnVR81YGH0 qGM2JO49HJ76K1RmBmhkpNLphV U+PHRhYmxlIHdpZHRoPScxMDAl LaUqrZjsVW1bEz3cMBDuQCGk bYrgmTPgPnGci6plPEXsJAaeFE 5rxEkiD8UvlXQ0GKXbv9f6Wp11 U08pL2HrjSS+VWHgdXW0oQM7 gP9bZqHnEvN4WMkeJ663RmVwuE RmZldjw1mml0rquQh6SkO8IMJb dcAlbDrnLUS7f7HqHs38T37u IHdpZHRoPSIxNSUiIHZhbGlnbj 9klT3uIr0+VSItaZH5xDK6eE5s OsMuTsM9YHbiN960ViXysAMy Gibdb0vgr7mvpWo2WfUbSTAbjl CelLqxIZC4x3WgBw65E3AbyMmm h9IkWju6kz18fBFmk3I1aOB1 N7QmBCDjwhmouAYemOepVF8uXU AiyvcnUJImnJ6dZCNyN7w3IvEy GkB2BIfqR3QfciD5HJVnePEm FRghPLE7S81io7I7NAZjLCJjSY Q8eAW8pE8vjSkewctbeOLneRwr tuDeaWurQZhoYNloU077SOQr oQmmEPUeeY8rHMMkjHXwsIaoJP 4wNTBpbjsnPlNURUlOLCBWSVJH ET7XGQCMIYZ8P2LpBss2SQFn vDwxOA5fkBMeXRumCd9ifQcalB inLL8eZIQsisjhETTapY1yYWMk lDWtcNmcUD0zCKBllmgkr501 TxFoGEL6XIFgdFGiX0OcvL7tPx PsVLSvUZRxQ1JifTLiHHzxP237 WEdvFuA0HFQalbMtA7DrQPTo pWjzEvT6d6M7Oq5rZI5xEM1fUO icHX46DY70oBVxx8C9pHW3I4Qx EOPzjvdfadjhqTY4FOJyJCHv oK99mDSmERtfKb9bc3L7f060NE KsFPPgsS79Um5yjUpmGTBqvYQN tX0pasogh5kmplkvUxRbFEYu BAs9XKj2RNSsbXixXbYlTLI0Pk F9NPE5zRTzmN2kbUdjchfztK4x Oyc+DeqqKAYntjH1I1GlSxz6 VBToaZgvAM3pwKSfJWrvNr3alU hfvShfTE5lSBDkvadhPUPrxK6n BHBtkUSzuJmnZA7oYBXysgvl m815ZdBxBZM8GIPxlNNkK4AdwR 3hQzKmIHRoCTRoZ4XqtWXqPXsh V736AQmoYxQ3FRSueiYgO4Fb IZNlwWddWdX1x5Q7Su9WKK6JBF Q6N2LwYal2HKSbsIjlHN6ctKUi UDqiOq3adWzbuHecNP4eQMGx rusbMJVfqD6kXCUvzXMdmDrwPD 0mAKLepudfh289MvAiTFS8BQXy mGRqR8UibW4iBpInVBRlPGXe I5QbuDZaGXlbT704BEdxRrF6ZD TdrzTxU1DbNUGvwWlpVnS4l4I6 Gt3LZHifiEX+XJ14jz91G8Dy SaluNmz4NJUnMIW9cTC2fB5gDG MgLGakr9X7bKP3R1SxypHjgb6s m0hrMUDhUXwgW12uwZFox6U1 HGTtvMO0DOWweVgrEsFebJ10Oj c+KGDjpRtvo1VbJcagq3naf8ay oNe3GeFrEVBgqdDoxTtoJGF6 n7HvLe69Y04mGMytDHKhDGEbON ZnJZZkvVabgi5oyC0rLs9+PGNv yXA8sGR2nD4xIgUqCeX2RAna W099LkSqlTFkVzdil8cok0qapX p4SeRwSENcwjIxkVmvHCE1q0Bd Kr27G9RtlAwml8OtHam8gt74 tBByy9I7uFC4B7KpUBPdgyqnhL RwmIirGF1wRFHbviqhVKNitY5t WLOwO9o8QiGcAtL3TJlgX3Zw sfU5TKKopGLlPJLnuJSPxP7ieo yqz9fpduiqDlLwBQRyHCu3OSd2 NKGtrWyzGsDtCMI4FlN0GIK4 vXCvlY9ryAwttdbidC5iWwt+UG f2z4tqfLObOI5aqAI5CW99FH18 aDStr5E6pYR2B0PyCEYgrpne dmoguRZ8PAMxKPVfjS27Dv4jiR ubWk2hUZWrHXC6XIWutRHhB7Ck zB9mMrEhNAOwSBRdY9DxhRIg FIwjC922JUssTlC9XBKeehAyC3 IgNJAalRlnTkQ9z1I5Jg0GPI51 BU29LC87gPYxv4Y5vQD4S3Lw AHIqgsqcafvnpXQ7KIMkPYDvuF 61Oh4kqNiyKa4uJRXmHEK1DRYk bSNhJ0QpvE3yYqZjTNAlQAAs F3NdmIUxDXmtS188JMpzBhH9HY VrgyFrH9CxNZEvgOwcPdJ2m7X9 Ul1UAi98CM09VE79dQGix1Z1 oUW7Y3XmRRHdtookmuifjCV1TZ SnWEBipC27Ji2biIfsVn3tWLIa VGD8IUBenMMfP1EgjS3kLgAw ERSpGDJpG2LdvGFdGKprW025BH tkSgC9XLEiigBkL8DsJNZlwVsv DpO5s7M1Df9CBHksbta3F2Na PjwvdHI+QR20QCDcJV74cLHdzY Ikn7vnhSe2NbOhDOOkQQJ2mUbe GIwzc9XdBMQtH70pkFLoj1T7 IGN (more content not included)... [facility] Coding Summary HTMLBase 64 WrdxmambDLr3mCy+PGhlYWQ+PE 0BXAAmF01fqTUsgA6LH9hGVD0E TNWYYXAJGN4EUR6yhYL5RHipZ7 VybiAv VjpcwEXpLY59NDf4DXC6mZcaPS gmsB9hxWUyL1u3FgYtVT16sP50 OXnlVBPwItI2EcAvibrgpFUj N5dkOiZgdORgRrv+PHRhYmxlIH qxRHUrNFyyQETsRuTklXrbFR1q Zl2cKHXxMOZjgZsjhHUrGbAd v8oxKPLwIDinPX0hbLbnC1UtkI G5FJGka1k5Xq51iRG+PHRkIHN0 kFeaLMghe220LhKia9yoQAY9 rZPsUTsmKJA8A73wk1T7PYDxUD ZdZOK0lEI6aE0tfWenifbeS2Ec zUMcSmR5RYS3pSFluW8mxRcz ukmpfB4lYqw+J55IXR7DRRLQVN 5JCck2S1HmPlkxuKA+RT26WFXm PB85kUQayMCul7jgtOl0VrJl IKEzJOU5lAomYBgwo2VwYUZzI3 9nkUMwy9A7XEAcuEczlIOeLcLq uZQ8kU0yHFrclglyp2mhilex Qysdq1zcrw20nZ94G70xIAujCB PxQAW4LIDlKVYovXlnfl7shN3m Ii8+LPmns5ybe7sphQc1JbAu GIMqjsShaJtiKKG4l3UbIz46D2 DrePsqz6LrQea2fe50pRYrm7I5 iAG9FYsmVRRzeD9nZMzfNfZ5 TQCpVnYigY69jIKxGVhqAe3nvB iscZmgQI9sONBafihzBZLufQ3o KMHqgWFtdLbuCC7fRDOpeqev v975JkPwNCJ2QNVeeJLkV2YubA 6lTjOuOPEfBHKqN1FpxQLyPUna K800IKxoHgQ7ZYMiovAtA7Dt OTYmmNyuUtT9m6V7On3Vd9Gxro wfOIV6FZtgESE7UsWxFkNzAuN9 V9ApYjp9GGTcbTmtZP9mN7Iw JLWjypqxynwvwPT1YQHyCBLbtO 68zKWpSAshBe9vz2O4e562BCWg XWTckE82Nq4tqAhgPRDmgUMS jD3qdvvbr1qpolqxJvNzGGUjDI l4DNa0LVWozNqzHiPxZWK1VqT9 YTQ2iPAwnR9gnJshcrmcnP0h Oyc+J69hhL9eGRK8PAM7vevcHR EahiXrZM73CG49P0ZzSpildRNo bGU+VCRfinZuhFihWY6zWuXv z1jjg7LuBIanN2UzQDUsPRtpFp r7YVRsGNR8aGU2fA9iLGAxMJko z7Y5jYV1O9BbrgVzjd2zm4vf WJKzDKyhQ35uvUKvj7F8HRXggY D6SAIjnEbuFjLmbB84Vsm+PGNv lQvjg3YqLldzd1nuj9nrvJj9 DfVyKJFhwcExnGfhLVB8o6NaRf 61E41qVNpgGWKgIJUgGELjZZBc xQxbtx5rgI2pKa5+PGNvbCB3 hZJ3zB0sKODcTsK0DLslA062De MnfUVcQsqwj3srm3jvjCi5XrLh RXPqbqQuyDejGSD3i7YdIt91 Y90mOZaxURGyPRZiKDXlLJBrtC vmyv2jjJ9jLj8+TT3ee9sfqi87 sK05aWS+WJUmFUR2hCvwNPmu RNKjkI3tBXmsVgI4VYKnEgHbgS 29fHYvGDytAc9psMbjbAlrZC2o WGIsaujoc396YaEet5ekFOSc aPCaPMsuCZI8E41oe7F4XVFeOR BbLGK1nQL5vL6xuXzpsjfrpIGh wPdaizTqsDrvZHkhCTxbT296 IHRvcDsnPlBhdGllbnQgTmFtZT u7M8AqVio6ZMJxtMxwZR7rrNYw TXhnCy8yzKtlaAhxKN3cQVPc bfnbd112EeVbg0onODNbeKVnOP dkSOH1G77ul4O7JVDuLSCqXXX6 jSC1vN5joNffcrfheQBieRkw koUhtRwdATxfAPchH260UEFtxO bxSoJnxgPnHGKalCM7PC07GX67 oLMgk3V4mTT8H0HiKVHbyyxc kudcbWY6OYDvEGUquD09Zw6fmC hwDj6oCFDyLZX6ZAAobYCsW2Na fJ2pRrJiEIRpMLSeA0YrsLIe QXhcI930CYzrXjI8TJWrdkVzN1 VwFGKqlPlrMvW8z2V5Sl0ZT8A3 SR01OU06pQNuv3F9dOR7R9Ek ILBlmpwcrwfrnHQ5NEDbKCJcvZ 85Fy9thItmOi2mKCOrGHN9CPWz nZJoW5FuyH3aIdLxWXFoDKKq F6IgxUSlJRgkT359AKfeJoO5RE FtcdTcP2PqYAMtpRxxCdO1e0J8 Uh3WGAk7DT24SL21mBQih6A2 zLT7O6PaWDQbjdpgkppayAU2ZI JgCTJhzT40Ny9puIuyHu3cKBGw BWN5JUAqfLCoH6SbuS6iIzLw HRTtJTFcL6LxqMDqUSdgT448EA yeNaO1GHOsoxWmL1LdVHCpnHaj EfS2c9D9Rf2JJOSiUJ15GHV8 hNN7DV51EI29E5QzWvstoEUzcD U+PHRhYmxlIHdpZHRoPScxMDAl VqVlcHsuXH4kCy2dXMRoHBFn mXbazJDbKrIts9cpJJDmKEqxWA 5snZciI9RpxRQ7NZRok3f7Aq58 B41cA9ZzfGU+MXXouMY1aCI2 hH1pRcVvKnT2FKynN014NgPpyA XdBrzgv8fhs6gzfDa4ChM4XGQk vmVkoXedMJN6m3IvLb10Z05z IHdpZHRoPSIxNSUiIHZhbGlnbj 2ysW5kBn6+RDErwMD9pKX0bM0a QfOgJpN6ANmqT242KnVctXSz Bjnuq4ebn1lntMy8LvQxUDAmml QgoRmsUDG6u4PwLi80E6AoiAmz i9LkKgy4ns25rLMsi8Y6aMS6 B4HeXVMulbqlqULkdCnqTL4cCW BweftsFJFjqC4vIDNhZ8i2NbKu KwR4QKbdK4GndeG2YABumBUs THfhWCC6O06cn8F0IFClRTAzIN M2aVC2eI7mdDburtzhoKJtnLgg leEcgGpiYCqrOYxcM891DRVe tBdiOZZyoV6aYKEiaDQkwPmeKO 4wNTBpbjsnPlNURUlOLCBWSVJH WB1WKOCDXAC3Q2OnTpi4QFSe bAjgRR9mjTKnJLvyFf3pyBuxmD fkAW9rLEYxtcbaXZMtfQ0zMTUb sHNeuMtmLB8eKMYsodzbo533 QtUiFRB5WEVfrNPcH3KvuF4tLs FjFTEbJXVlU2JlbTCmHJkeW529 NEscFeP0HZKiiuBvM2IfTSLq kZrwZiS8l5M7Rz4oUZ3rGC0mJL qhFZ04FO85dRKbl7N7yNZ7R4Ky UXRfpztnglafnDB6AMWwDUNu fT38eRUsDBrxBw8qx6S6e580RS SfKUEwdS40Bx6azWkvJRZhbDYX zM2kynkll6cbopjyZwIgTUBo ZLy7VCd3WUIysTztWnGlAAE2Ie P4NHU1nZSdhB2jhLspsuracI4p Oyc+XwozXFIvzlJ9A9IbNvq3 AHCufFeqQP7ggQMrURdlZl2dvA hwwMfvGM8gULZekyxnATNozH7z MBEvvNOqeRphBO1zCYRjjwtr c683HgWfXIZ0YOVtdQSnB5CkeP 0eMfFhCCRjRUSiG0LmbRXkFHyq Q342WPwhRhZ4ZVPkyeEtE1Lb GRSwqSnpFrK0q6A4Gk0PHZ3KTI C9F3LbWlb7XRFyqWqpZD5wfEIq XMesKj1paCqvcRyqPJ3bQBXt jeigFQMgbT5wFLXqqCSqpWdcXF 3vVFBbhnjov047HpWyIJY2EFGg vAItQ7SfsI2kNtQsFCApKTOt G3QitFNaPYerP606CDruDrV1CZ WxqfArX7ViXCHwzWkoKwX6k0O7 Ew5KtNCxD7WrM5u7O2HoJclr dHI+TW17YIImGB91oTOxoGGji0 nugHi2BjUlZSZjJFR9ySxwXGch e2PtNEOyN98lbXMzx6D3UJJc gFiayYRyEgEfmWU7fY3aFPqyag sjd4izkypuSxuuc0olno01oD69 J51xCXzbVRZxFAWqWXGnKFCj cDwdgb7dtW7oGd8+BTIdgJM9yQ Y9yH7mYwJfTqC5YYjtL325XyLb yNZeSbzvu9ata0tnqPx0UeZl HQHnhlStzEmqCFZ9a9SrUy05G0 9sIHdpZHRoPSIyMCUiIHZhbGln na9vhW6jJx0+DY9dg4cipq12 dD72aTE+MFCzQZR8jYekXShgSW GtzX8jCOluDhK9SZBsFcGldT28 cQWmPXvtPl9kqBjfiPvqKH8j KRUywsdul076ZyBig3rmUULkiC HqNGwvIMX8C21gh1K3DQLnSGGa MBB8eHK8yV2jvDduulokkTXj zWmpyrKlwTqsCBooRVxmU049RC RiwBigLbJpnARvL3waqbMXLA4q OjwvdGQ+AMSjAWE3sTdpEVaz RBPwvT3mZGWfW0q0KoMhEtO7KL glL8BimyR4YYJywMUvYCIlvUAF nA5nsqxzk6qorwmpMpVdQIQt YOo7MWa9VTIwoNaxUzYbRBY4Ns D7ARB9sXMioA8ehNlbntsnfS8t Oyc+RklOOjwvdGQ+PHRkIHN0 qOqwNDssMWXrhV8kSCFpG2v0Cv CiGsH9GZngO9AzytY2YYXctSPx QHRydETMaO1xpziid7juyfbi UeHuAHYuSMb0XJo9FVAktMakFz IeUKM2EhT9XDE4bDZduL4ptGoy ddlbwN7rTad+TVJOOjwvdGQ+ DUIhGSG1qIeuRGvxYBRhlK8vMF TjX3c8XcKjFvK0YQmdS9AuooF7 PIJeeVDbQBYbrZFNxJ3yshon z9ypjyprEdItXSUiBWb0LSf0AO DxmKnaBcGiFRF1QzK8ECD0kREg sT7bpJqvceeosB5nEgz+UGF5 YTH0WE49NO87K1BrVugasVUaxR U+PHRhYmxlIHdpZHRoPScxMDAl SzXsuHizXK4kCb6qSXLfOAXz bGx (more content not included)... Normal [facility] CHLAMYDIA/GONOCOCCUS RAINER ( AB/URINE/PAPon 02-09-2022 Chlamydia trachomatis, RAINER Negative Normal Negative [facility] Comment on above: Performed By: #### R PRQ #### [facility] [address] [address] [address] Juan Antonio Ibarra Neisseria gonorrhoeae, RAINER Negative Normal Negative [facility] Comment on above: Performed By: #### R PRQ #### [facility] [address] [address] [address] Juan Antonio Ibarra AFP MATERNAL FOR SPINA BIFID Aon 02-08-2022 AFP MoM 1.41 Normal [facility] Comment on above: Performed By: #### A FPMAT #### [facility] [address] [address] [address] Juan Antonio Ibarra AFP Value 66.8 ng/mL Normal [facility] Comment on above: Performed By: #### A FPMAT #### [facility] [address] [address] [address] Juan Antonio Ibarra AFP, Serum for Spina Bifida Report Normal [facility] Comment on above: Performed By: #### A FPMAT #### [facility] [address] [address] [address] Juan Antonio Ibarra Comment Comment Normal [facility] Comment on above: Result Comment: Melchor Chaudhary, Ph.D., [facility] Director . References: Available Upon Request. . Multiples Of Median Cutoffs For AFP Elevations Briscoe 2.5 Black 2.8 IDD 2.0 Twins 4.5 Abbreviation Definitions IDD - Insulin Dep Diabetes OSBR - Open Spina Bifida Risk . For further inquiries contact [facility] at [phone]. . This test was developed and its performance characteristics determined by [employer]. It has not been cleared or approved by the Food and Drug Administration. Performed By: #### A FPMAT #### [facility] [address] [address] [address] Juan Antonio Ren Age Collection Date 18.3 weeks Normal [facility] Comment on above: Performed By: #### A FPMAT #### [facility] [address] [address] [address] Juan Antonio Ibarra Gestat, Age Based on LMP [facility] Comment on above: Result Comment: Reca lculations are not recommended when gestational dating by LMP and ultrasound are within 10 days. Performed By: #### A FPMAT #### [facility] [address] [place] [address] Dr. Juan Antonio Ibarra Insulin Dep Diabetes No Normal [facility] Comment on above: Performed By: #### A FPMAT #### [facility] [address] [address] [address] Juan Antonio Ibarra Interpretation Comment Normal [facility] Comment on above: Result Comment: [...] Customer Services to discuss available options. The [employer] recommends amniocentesis be offered to women age 35 and older. Performed By: #### A FPMAT #### [facility] [address] [address] [address] Juan Antonio Ibarra [age] Normal [facility] Comment on above: Performed By: #### A FPMAT #### [facility] [address] [place] [address] Dr. Juan Antonio Ibarra Multiple Gestation No Normal [facility] Comment on above: Performed By: #### A FPMAT #### [facility] [address] [address] [address] Juan Antonio Ibarra OSBR Risk 1 IN 3501 Normal [facility] Comment on above: Performed By: #### A FPMAT #### [facility] [address] [address] [address] Juan Antonio Ibarra PDF . Normal [facility] Comment on above: Performed By: #### A FPMAT #### [facility] [address] [address] [address] Juan Antonio Ibarra Race Normal [facility] Comment on above: Performed By: #### A FPMAT #### [facility] [address] [place] [address] Dr. Juan Antonio Ibarra Test Results: Negative [facility] Comment on above: Performed By: #### A FPMAT #### [facility] [address] [place] [address] Dr. Juan Antonio Ibarra VAGINITIS/VAGINOSIS DNA PROB Abdirashid 02-08-2022 Bettye species Negative Normal Negative [facility] Comment on above: Performed By: #### A 1C #### [facility] [address] [place] [address] Dr. Juan Antonio Ibarra Gardnerella vaginalis Negative Normal Negative [facility] Comment on above: Performed By: #### A 1C #### [facility] [address] [place] [address] Dr. Juan Antonio Ibarra Trichomonas vaginalis Negative Normal Negative [facility] Comment on above: Performed By: #### A 1C #### [facility] [address] [place] [address] Dr. Juan Antonio Ibarra ABO and Rh group post transf usion reaction Nom (Bld)Ordered By: Eleazar Hess on 02-06-2022 Microscopic observation Gram stain Nom (Unsp spec) [facility] ED Clinical Summaryon 2021 ED Clinical Summary [facility] Emergency Department [address] [place] [address] [id number] ED Clinical Summary PERSON INFORMATION Name: ZULEIKA WYATT Age: 31 Years Sex: FEMALE : 1990 MRN: Acct#: Visit Reason: Rash; Medical problem - minor; POSS BODY INFECTION Arrival: 01/29/2022 20:27:46 Discharge: 01/29/2022 21:17:00 LOS: 000 00:50 Check In: 01/29/2022 20:27:46 Checkout:01/29/2022 21:17:00 Address: [address] [place] [address] [address] [facility] [address] PCP: Andie Stoddard PROVIDER INFORMATION Provider Role [...] follow-up with their family doctor or their [employer]ATE [employer]IP[employer] doctor. To this they agreed.. Health Status [...] Current Fr (more content not included)... 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 To this they agreed.. Health Status [...] Once. Impression and Plan Diagnosis Sebaceous cyst ([id number] L72.3, Discharge, Medical) Plan Condition: Unchanged. Disposition: Discharged: time 01/29/2022 20:59:00. Prescriptions: Launch prescripti (more content not included)... Normal [facility] ED Patient Summaryon 022 ED Patient Summary [facility] - Emergency Department [address] [place] [address] PATIENT DISCHARGE INSTRUCTIONS Patient Information Name: ZULEIKA WYATT Age: 31 Years Date of : 1990 Reason For Visit: Rash; Medical problem - minor; POSS BODY INFECTION Arrival Time: 01/29/2022 20:27:46 Primary Care Physician: Andie Stoddard Attending Physician: Johnson Wright DO Comment: Visit Diagnosis: Diagnoses This Visit Medical problem - minor ([id number]) Rash ([id number]) Sebaceous cyst (L72.3) The Pharmacy at [facility] is open Saturday through Saturday from [...] alcohol and/or drug addiction problems; contact the [facility] 07/01 Crisis Hotline -Text 4HKNC ne [phone]. If you received any narcotics, sedation, or [...] documents With: Address: When: Andie Wyatt [address] [id number] Business (1) Within 3 to 5 days Comments: home warm compresses clindamycin for antibioitic see your ob, or Dr Wyatt, for recheck apt ----at some point, this might have to be removed; this is not cancer, but a retention cyst of fat material; Return if very red and tender, or fever, vomiting worse You are welcomed to return anytime. Call Dr Wright, ext [phone], if any question patric WRIGHT< ER PHYSICIAN< Heike Jones Octavio Medication Information: The exam and treatment you received today in the [facility] Emergency Department were for an urgent problem and are not intended as complete care. It is important for you to follow up with a doctor, nurse practitioner, or physician?s patient services assistant for ongoing care. If your symptoms [...] so we can reach you if necessary. [facility] Emergency Department has provided you with a complete list of medications post discharge. Please inform your primary care provider/provider of your visit and for further instruction [...] Epidermoid Cyst (more content not included)... Normal [facility] TYPE AND SCREENon 12-30-2021 TYPE AND SCREEN Antibody Screen NEGA TIVE Blood Bank Notes performed by CV on 12/26/2021 ABO Rh Typing A Rh Positive Blood Bank Notes performed by CV on 12/26/2021 Normal [facility] Comment on above: Performed By: #### R UBIGG #### [facility] [address] [place] [id number] [address] Juan Antonio Ibarra HEP B SURFACE ANTIGEN SCREEN on 12-28-2021 HBsAg Screen Negative Normal Negative [facility] Comment on above: Performed By: #### H BSANS #### [facility] [address] [address] [address] Juan Antonio Ibarra HEPATITIS C VIRUS AB W/ REFL EX QUANTon 12-28-2021 HCV AB 0.2 s/co ratio Normal 0.0-0.9 [facility] Comment on above: Performed By: #### A 1C #### [facility] [address] [place] [address] Dr. Juan Antonio Ibarra Interpretation: Comment Normal [facility] Comment on above: Result Comment: Nega tive Not infected with HCV, unless recent infection is suspected or other evidence exists to indicate HCV infection. Performed By: #### A 1C #### [facility] [address] [place] [address] Dr. Juan Antonio Ibarra HIV 1 AND 2 WITH REFLEXon HIV Screen 4th Generation wRfx Non-Reactive Normal Non Reactive [facility] Comment on above: Result Comment: HIV Negative HIV-1/HIV-2 antibodies and HIV-1 p24 antigen were NOT detected. There is no laboratory evidence of HIV infection. Performed By: #### R UBIGG #### [facility] [address] [place] [address] Dr. Juan Antonio Ibarra RPR QUANTon 12-28-2021 Rapid Plasma Reagin, Quant Non-Reactive Normal NonRea<1:1 [facility] Comment on above: Result Comment: Plea se Note: This test does not meet current guidelines for screening and diagnosis of syphilis. This test is intended for following treatment response in patients being treated for syphilis infection. To screen for syphilis infection, a reflex cascade that includes both RPR and a treponema-specific assay should be utilized, such as Treponema pallidum (Syphilis) Screening [place] (542483) or Rapid Plasma Reagin (RPR) Test With Reflex to Quantitative RPR and Confirmatory Treponema pallidum Antibodies (371288). Performed By: #### R PRQ #### [facility] [address] [place] [address] Dr. Juan Antonio Ibarra RUBELLA AB IGGon 12-28-2021 Rubella Antibodies, IgG 3.48 index Normal Immune >0.99 [facility] Comment on above: Result Comment: Non- immune <0.90 Equivocal 0.90 - 0.99 Immune >0.99 Performed By: #### R UBIGG #### [facility] [address] [place] [address] Dr. Juan Antonio Ibarra CBC AUTO DIFFon 12-26-2021 BASO # 0.0 103/ul Normal 0.0-0.1 [facility] Comment on above: Performed By: #### A 1C #### [facility] [address] [place] [address] Dr. Juan Antonio Ibarra Basophils/100 WBC (Bld) 0.3 % Normal 0.2-2.0 [facility] Comment on above: Performed By: #### A 1C #### [facility] [address] [place] [address] Dr. Juan Antonio Ibarra EO # 0.0 103/ul Normal 0.0-0.7 [facility] Comment on above: Performed By: #### A 1C #### [facility] [address] [place] [address] Dr. Juan Antonio Ibarra Eosinophils/100 WBC (Bld) 0.4 % Critically low 0.9-7.0 [facility] [facility] Comment on above: Performed By: #### A 1C #### [facility] [address] [place] [address] Dr. Juan Antonio Ibarra Erythrocyte distribution width (RBC) [Ratio] 13.5 % Normal 11.0-15.0 [facility] Comment on above: Performed By: #### A 1C #### [facility] [address] [place] [address] Dr. Juan Antonio Ibarra Hematocrit (Bld) [Volume fraction] 38.9 % Normal 36.0-48.0 [facility] Comment on above: Performed By: #### A 1C #### [facility] [address] [place] [address] Dr. Juan Antonio Ibarra Hemoglobin (Bld) [Mass/Vol] 12.9 g/dL Normal 12.0-16.0 [facility] Comment on above: Performed By: #### A 1C #### [facility] [address] [place] [address] Dr. Juan Antonio Ibarra IG # 0.03 10e3/ul Normal 0.00-0.03 [facility] Comment on above: Performed By: #### A 1C #### [facility] [address] [place] [address] Dr. Juan Antonio Ibarra IG % 0.3 % Normal 0.0-0.5 [facility] Comment on above: Performed By: #### A 1C #### [facility] [address] [place] [address] Dr. Juan Antonio Ibarra LYMPH # 1.4 103/ul Normal 1.2-3.8 [facility] Comment on above: Performed By: #### A 1C #### [facility] [address] [place] [address] Dr. Juan Antonio Ibarra Lymphocytes/100 WBC (Bld) 14.5 % Critically low 20.5-60.0 [facility] Comment on above: Performed By: #### A 1C #### [facility] [address] [place] [address] Dr. Juan Antonio Ibarra MANUAL DIFF REQ NO Normal [facility] Comment on above: Performed By: #### A 1C #### [facility] [address] [place] [address] Dr. Juan Antonio Ibarra MCH (RBC) [Entitic mass] 29.6 pg Normal 26.7-34.0 [facility] Comment on above: Performed By: #### A 1C #### [facility] [address] [place] [address] Dr. Juan Antonio Ibarra MCHC (RBC) [Mass/Vol] 33.2 g/dL Normal 29.9-35.2 [facility] Comment on above: Performed By: #### A 1C #### [facility] [address] [place] [address] Dr. Juan Antonio Ibarra MCV (RBC) [Entitic vol] 89.2 fL Normal 81.0-99.0 [facility] Comment on above: Performed By: #### A 1C #### [facility] [address] [place] [address] Dr. Juan Antonio Ibarra MONO # 0.5 103/ul Normal 0.3-0.8 [facility] Comment on above: Performed By: #### A 1C #### [facility] [address] [address] [address] Juan Antonio Ibarra Monocytes/100 WBC (Bld) 4.6 % Normal 1.7-12.0 [facility] Comment on above: Performed By: #### A 1C #### [facility] [address] [place] [address] Dr. Juan Antonio Ibarra NEUT # 7.7 103/ul Critically high 1.4-6.5 [facility] Comment on above: Performed By: #### A 1C #### [facility] [address] [place] [address] Dr. Juan Antonio Ibarra Neutrophils/100 WBC (Bld) 79.9 % Critically high 43.0-75.0 [facility] Comment on above: Performed By: #### A 1C #### [facility] [address] [place] [address] Dr. Juan Antonio Ibarra Platelet mean volume (Bld) [Entitic vol] 10.0 fL Normal 9.5-13.5 [facility] Comment on above: Performed By: #### A 1C #### [facility] [address] [place] [address] Dr. Juan Antonio Ibarra PLT 194 103/ul Normal 150-450 [facility] Comment on above: Performed By: #### A 1C #### [facility] [address] [place] [address] Dr. Juan Antonio Ibarra RBC 4.36 106/ul Normal 4.20-5.40 [facility] Comment on above: Performed By: #### A 1C #### [facility] [address] [place] [address] Dr. Juan Antonio Ibarra WBC 9.7 103/ul Normal 4.0-11.0 [facility] Comment on above: Performed By: #### A 1C #### [facility] [address] [place] [address] Dr. Juan Antonio Ibarra CULTURE URINEon 12-26-2021 CULTURE URINE Culture Observations : LIGHT GROWTH OF MIXED GENITAL ALONSO. NO POTENTIAL PATHOGENS SEEN. Normal [facility] Comment on above: Performed By: #### R UBIGG #### [facility] [address] [address] [address] Juan Antonio Ibarra GLYCOHEMOGLOBIN A1Con 2021 ADA RECOMMENDATION SEE BELOW Normal [facility] Comment on above: Result Comment: ADA RECOMMENDED LIMIT 4.0 - 6.0 ADA THERAPEUTIC TARGET < 7.0 ACTION SUGGESTED > 7.0 Performed By: #### A 1C #### [facility] [address] [address] [address] Juan Antonio Ibarra Glucose [Mass/Vol] 114 mg/dL Normal [facility] Comment on above: Performed By: #### A 1C #### [facility] [address] [address] [address] Juan Antonio Ibarra HbA1c (Bld) [Mass fraction] 5.6 % Normal 4.5-6.2 [facility] Comment on above: Performed By: #### A 1C #### [facility] [address] [address] [address] Juan Antonio Ibarra US PREG TVon [...] by: FELECIA GOLDMAN Date: 2021-12-07 16:59 Normal [facility] Coding Summaryon 11-21-2021 Coding Summary HTMLBase 64 [id number]+PE [id number] LCTKGSDJVK2AYH2fvGO6SCcbI8 VybiAv TylzrDViVC15ZVe9TST0wObnND hdkW8lrDLmU6r7ZkPtYB91jM22 TCmxVOMxFwT0XxOunsejrDAe O3kuDtOtiDAvVrg+PHRhYmxlIH acDSJnIUxtQKVtIiMfgRdgFA8c Pn5tOTDiKNOeeIhdvAWjRhSb b3qsGKCtKFpjBN2zaXizS0IzvG A9GZWew0y3Wu43cZW+PHRkIHN0 fAguTZiqf500VfAfc6bfDAK1 hDVnTVgwPTF2K71zc6T6YYVkEZ BhXYE4wVN5xD6qeIziqcexU3Hw iYKyQdJ9EQI5qEYepB8xfYby atofwF4wIcf+Z71SID5XLOHGOM 6IHww1W6FbQjvykCE+UD23LXXg JL29xHYdwRIsf1kzyWi6AsPk OYPpOSX9hCnmCLqdo8JsGQBaF7 3gxRCwe7H4RHJlpXithOEsCtGo hNJ2iS0lAJwakwfgx0djmhjs Grkfs4eeig73zW30O23aWXvlBH PvAGR9DRGnDYTgyTblop5zdL9g Ii8+XVylf3ezm4yxoZs0NaGh FPLaraJgbFlsPVT4z1HyPh34T4 RqmZesk6IbBbx0hy75lIXpp1V2 iTL6BFugEZDrhX6tLJvnQwJ0 PFXqUjNqcO79kYDaUWmdJa6xrP rwtCuvCT8sJIWxqvlcTDFceT4e VVMyoFBsyKzmUW8cBMYqxlet c202ZdMoFAC9DJXchYPjU8GegQ 7zAeLnFTNuEVWvG6VxpOBjICpm E865EGcuIpO7VYBoagJkP2Xu PMAynOpiOyI5z6W5Bq3Dz4Wuyw juTTN7ZYfpEMT7PyQ8QqYxWzA3 J1ZpThg6VKKtbBadPA4xP0Px PGSszfwjeetydQG9BRMgSBGgpJ 48jCIaRAmqQb2qu5P1z331EMOv APPtyB32Ae4leNzxPWVycBAP zZ8vjxvvg8eiqgphXrJhLYRwPO t2CMg6UOZmuHmyYiViATF1LxO5 MJE9oSFenU8oyUfpdhjdiE0l Oyc+G56qkA7zBXD8MWG3eqqaTE DwyrCsUL97XW35O4JkNyahiTPb bGU+ZYOaafJcxQiuQU8gRvYw p3nbz9SdUDquW5PvZNNcGMoaHy h8BZMfJCC2kGE9iT6aNZMtQBbj u6A4aOM4Z5HvsuLnda5sb0xg GHYdHZpbY54juGDas5R4CFMlnR D3UOLhjHboBtSfpJ10Pyh+PGNv kVimq1GiRbwph1frw8caxLk4 MuXyOUWrvyCgcXqqMYI8y9NhEd 51U27xYUgvJDLdBHHiHQIdDZIr fGbtxz5dbX3vYn9+PGNvbCB3 cYP4kA2uJFXwKaJ6AEbdC232Nv QoyRMyMgkij2pjm0nzjZd6TcOk QQBduvEppCjyKRP4x8ArJu29 J59dPObnJGYcSZPuNJEeHUDyaT tcam8qlN1qXf0+WL9ef1ktwm11 nZ58cUL+LFLnIGP1qPfuMZhz KVAvdM9wRCduBkH2HMQvYcXasS 18rGLzNIvoFs5aqAafrLcpMT5f WQVesiilx807MvOwr4ceHKOi nNQfZCebLQJ0G92ln1G3IGJcAP XfNIT2hBF4xK0mlZjokrfcrMVj bVbobqUumJmwBFlkEUjdT942 IHRvcDsnPlBhdGllbnQgTmFtZT d7G7KqPkt8SUOawTtwVN9xqSWw QKjhKe9fpVzimJipTQ6yCEVy ccdvt507OeUcs7bcRJTrbXYhEG azAZB1D00mf7F2KLXrPBPwTSR8 jID5kZ4ttQhcjczbpKUxaTfa kvRtePmdWTkbCUnkV575NYUetU uhSwNkybCuGUFsjFV3EI69AA61 xOFep2C2bQK4J9FmKWKoqyhg mktwrVD3RDTeWJWqoH33Fn8noZ woMl4oDENtMTZ9VYEkeUSgA7Sn cC0xDyQpZNVbVOVmV3TihSBm PKbdT690JUtpGyE4PKRmbyMzX2 AsVJJgeDfqQqQ2v6Q2Ap1IX0A6 GR84GS70iFSac9Q0cCR6N0Ly KYZjkwaqavvvbFW8DJZzNSYziP 61Ip9cpNiaGn9lZFVzDYF2FIQg oOGgB8DrmB9jGbPqJQWjFGNm D8MlaHUgVPjiK150ILrfCiC7RT DkcvGjQ0WwLYMixUokZmE9q2L4 Ef3NADe3PE54TR95mGKwh2G4 cZG8E1AsKMXybkkktdwoxSQ8MT TeSHGcvO29Pr9eaTiyPq6cQZKc TCF1EVVfsEDwV4MkbP8fQtRc JAEcHAAiE2HhqKSmFMouG428WY fpRgG0WQGwirPwD4GuBRGrcYrg FwB5h0I7Gm7ZOAXuLQ87FYI1 cXT4JN70TP12R8YqUnunhYEbrB U+PHRhYmxlIHdpZHRoPScxMDAl NzNccDocTI5vLf7sSBZyHTSd gDjheKYfSvDnu6yhJRFaLXmhAD 3hoUlwP8KvvCD7QTOxj7o5Ev78 G66zL5KpiCS+VLXtzNW7lCN2 bZ0dFrDvChT5BYtsM590KwDepA BfOgqqv3xzp7xrtIt8BuP1JUAy hkIppJepCRR0x8YmAn61U00k IHdpZHRoPSIxNSUiIHZhbGlnbj 1ijF9sSh3+XHOgkTW1mQR7tU3z CuXeFiS6RXjmC072RvZwgFDd Ceevh7xrn8gctBh5JdHcTDPwbt IhvTizMLS0h2RkYa14A4OpxRgk e6GpAzj0xl79dATeb2E7zGS6 A6MrOZPohcrgwQHkfBxoMX4kBL KwkchlEYNdoB0bZSYhW7f3WsHe ExS9IOurZ2TndmB1VJQudAOq GFfwYJB2R01ia5K0CKZhUDOmVS P3qPY6wY2swQgoghxtbYGkrGgm vfWiuLduPBigXQkiY900NKMy lTibMSJtpJ6vZKPpxUYgfNdcQX 4wNTBpbjsnPlNURUlOLCBWSVJH XS3CPJJUYQE0F7WkIxo8KZMn aAwmEU8cjDIuNCohJl7zbFwrpD myVB9eKGBzfzlmVUUfbR2mRDAw nOVkhRhtFT0uZATxnyyju591 XhFoJXA5UWAptJQwK0XbrR2iXb FcTYLyHPKgF2ZymZXiBFddY525 UFrsZpS8JESvywKbI4CcEXIa cTkrZfE9e7E7Xt1ySM1zKT0dJR liDW96CC01zFHfn5V9rMK5F6Pe AQBojvclxpufzWV4EOMpEOUi iF72eVBaVStiJk4sq9S3p811EE XeIHWglP61Qm0elGwaWQIuuKPI sW7ekcsda1nlegunZgSkCUDv ZBu9QXa6EWWbaProCmUbOTK0Hv C7OFP3dWPeaK2giBaoterpnR1r Oyc+EgxlXVFhmrR2R0GhFmg9 BHFdmHpkCA1urELkINjnIv4mvY napAthEB9wUFEqbiljUQQnjX3u CCKrsYGelRtkKV7dVNZseewp w643MvMySMR8QEEefLJqT9VscP 0uIjNwULQbVHWyV6JzcQBaZOgw N333PQolRtY2ROLhgdCjL9Rk RGYowGqgBdU9l2R9Tv0OPT9QEB D1I9JxZfm5SHZtnGcbEY8prIGe YEuuKi8xdJajhEesZI8kVEVj wgkcWNDmbO1rDIHxrSLjiPcbBC 1sXPOwukkjm892FjMaPUK6VMPp sOPwE6BvjG0mYhYbWUEuHPAz S2PjmRTwOCzdH342VHzxKmQ2YZ DirbYbD7TiHOVrzZkpPuX0d4Q1 Nu4UREmjqBK+PN23sc21Z8Ar RirrLun5AVEsKXY0rYB5oU2fGT KaYOuuy7M0bQE4J7PxpbAppr0j i3qqMKMpHWwpZ93bhOOxu4B0 GMRfiJC9WUCenDmzUeHjcU60Gc c+OYHagJwce0IpAvvcd1oot7ed kBp7KaFyXIOjspCykBwdSSN2 u7GhEn04I08pPAhaVGAdUSQmHA NqDRPuzNcoli4fcA3eVk7+PGNv mEL5fGE2cH4kHuOuEdC2VTsf P945PuKszAWwOdlgg5hzg8oggR f4NwDuZWFfnkSyyTsaLUU7r5Ku Nu01M8TlmEjkw3KdBmu2kg38 zVVxv1H2oRG9E4RsKCWrcmowiX JyoQatMH9mHWKitfgdADOslH2y AOJvQ2n4TyClUzN2WVymX0Yr bbF8EETpnNZaMVNobAQMaG5mws heq8flwensJbYaORCwRWc7WOl1 NMTtkGxrFqWbSIB8RcW7DFX6 sNSmxY4rmMnmlarpbP2mOda+UG p5w8ovqQPfNB0aiIN7YM60ZJ72 fQPww1O0hOG8D7YsRQFgslzt ktjpvOO5YNOrILRlkJ72Ls9hcL eqOl3sRKMzWSS4SRFapGMxW8Vz aG8jToSfFNKfGEJwE6CvpPIn WBanO147WTdyGvK9YYIgpdAxL7 QaMBAjmDspTlP9s7F9Rg5AZK54 BT40DP21dITim4W6aXO2M0Xs JPHugbdhyaqyxWR6ASLdVWZaeC 76Sg9vkSgyUq5uJNMjELP8WVAj sNHlF6FneP0xKwRkKSPsXYBw U7LlaOUzCBpfU251DEgpIsC3YS XjwuYrJ7JeIAOnvKrlMsK2a8B3 Qf5TRq29PM87AF71yIUzn0X9 oYX2P8TcXSXptzifanqbeDR5PM DgIKOahK47Yd1brXwaOv4bTTLl TSX7UAJemYHkZ9ZigW8vYmFs EHJcSNGhM0AkwXAzBKotI222ZK abWvO1ELHlklLwO6HaPQLeaPce TuO2v0C2Vd9WOCsdhlp1Q6Zq PjwvdHI+FY30XHToID06yGPppT Lor3idySs7RvOhPBCvCGL5lQfa HYxly3YxYCOxK74kqQGwe6W0 IGN (more content not included)... [facility] Coding Summary HTMLBase 64 ApzckshbIFy7vEv+PGhlYWQ+PE 6CWAMjV14kpKPibX1NJ1mPVZ0S ATZKGTYPWS5PUS2izTN3CIdyP7 VybiAv HudmqZOoKX62UXo6QDV3kQvzPR maoI8jiYPrL3y8HcYiIE34mZ90 YEmzTMIxSdH6DwDcdyujjRCh G9uuObPxvVPcXrr+PHRhYmxlIH bcEFSgDPifOHPrYaIaqTvrWM9h Fi0lGLWeCZImaGwmpKLkFgKg b9ysZBWjKYrqZM3wiGymA2GwcG U3TQSst1r3Ft79aBJ+PHRkIHN0 sPzdGZpvh952MnGgu0fpQTS8 hVIjEIijXFS7S37ga1Z8HCEcIA ExQNK8oCP5yW4xeErcdlveD9Sx yOOdNxA3BIK1zJVnaK8emEik ouglgW1mWqp+G73SZB8MFNXJXG 9AFts0J7FvOhygfKX+YC18ADWl BR24kIFdmZMrl0ucpRv9BhAn XWYzZMD6nSisGDfwx9VbMAXeK1 2xvOBbx1V0EWCnmVqdhWRhLjZb eCN8hS9jVGtgoeqyh3nfvnzq Gpdcl5onqk81lV70J14mILgqBN OvDXX6RWCmHYRowIdfgu3uaR6x Ii8+ZLjkt7oty9nieTs6ZcBu MGQyluGdnOmcPRX1x1KdNl45W7 QyoRert2MmRqf3il74hHStc2D4 vFB4MBfpSIXpoN0zSVzrSlP2 XHJmIiTfiC91gUAvNIrmAk9tuX cshWdtTE1tSYNvdmqfWFUfqM5m ZAEknNSxyVfoUJ2gMCHspaup i858PyGlNLP8ILLvhWRrM8PeiR 9jPpNwPPHjGBMmX9UvqJQdTQjy Y450IUpjEwG2VATnzlIeJ6Uq ASDppKmyFjV4h6Q0Ub3Xl6Cyzh ueRUP4TBfeMOP3OsB5KyYrRzC3 M8EpGfd0DPGwvYfyMM4vB1Oz MKMghdsflippwDV3FWRuLKNtkU 66zGOzJBfeLu8cu8J5h567DIFe RFDptG72Cu4psClrJSVmqBVY zX4ukmdse3ezoiqlVmPlKSQfJU w0GTt0ERUheAdfCgOoEXH5WvP9 AQZ1aURrqY5xwXkxbzeceG6x Oyc+D93urT3vMUB3MUT7qpdcQZ AnlkZrIV38ZT37D7KwNosaoBUc bGU+GGVheiTtaGexJG2uLrZm c1oen6YfCVpfW1DkMEWdYBxmZp a6LJEaBLR4lMG1iB8sEXNjXPpd o8L9wTS7L4WdqiDvro7yd5ub KBDvKHcvK36rsNAaw6T2SGRcjH B6KKHeqToqZgRrhR90Jfq+PGNv qWdqe0JeYahnt4ypa2fyeFj6 EuEgYQWsqcOwiJdfMTJ1o2VuFf 97R62mUDleAJRsXORgQJDbWLMr pPcnhk6odV3uGc1+PGNvbCB3 fTV8rJ2cOBKkBbE6SKsjG657Dh AsmWLzVexgz4ynj5xxjNc0LqWg UQGouaHynOsgYWD7c2MgLc11 M72sSLcsHRFaZUJjVJZfNVEeeD ycfd0wbE1hBx9+CC2gh0jrzn34 kI40pLI+ECGwWQN4wRntQYwv VONybA1gHPyvEnY2TPYqNzGssN 94nQOnTQplJl9vmJtuwPepLM7o PDZufbqep605GnBgq7hjCKUi rNAnTTjzWUA0D98rl8A3PKIwZL OtHWD8aCO3rR1zmGdkustziATy rIzociYbiIcyJEitVQdtD022 IHRvcDsnPlBhdGllbnQgTmFtZT y4X9MnAyd3UMYnkRfmPL7yqFVg UEtcGr0vzLwmuMurRY2mTHEo xapck078BvKza3ikNYEtyLKqCM mkLIT0H07pz2D9JFArTCHjGRG8 rJZ1fW0lyKjteetnbWEeoNft vdMkdHbgUOfcTRxkF300HCAbxT hzHuXlpwKhWEGuiQK7CA32PA65 pHBrm9Q0xBH9Y7YrAHPpenow zuogxTZ8HPYrVKYbhR69Pr8ppW eyFr2lSPHzMFU3EXOnjHEmQ2Lc xL0dCbWfFXUpHXAoB4NbdBJq JVemV123SHjqQwO6YJArluWfZ2 VvZSOivVclKyP9a3Q0Ib3DC8J4 XZ62SE22cSFnj7L4kND2P3Cs MDIgzjgypxxqxZZ0ZFQwXRChwZ 84Xo3jxWsxLz6cZIOcWVR2EVYy vFHpR4CkhC1uUkWdDWWrRTUy G9WurKFjCJqhT685DQybSwL2YO HfysOyE3XcEKTdvSyaXpK7r7W0 Yz7YWRf9BO68VU00yKOoj5T0 hEE5H4DxRPMlvrykxxoubRQ3YU VjHRRqhV53Pb8nkHzsOq0eYGBn SQN6TZLdgAYnQ8XheB0zFtHk JQRfAYUpU3BheHExRNpxX365AY oyCcB6QRIzwwPwO7XpGEJotOet NqS1n0M5Qr9PSHHaLD83SFN6 jML0TK97DU32L7KwZsbujTNpbQ U+PHRhYmxlIHdpZHRoPScxMDAl PmPbjWhtOK3iVk7vQVGlNVMl bAjliCYrQmKhb8lrOXJqCJnxYA 7vwZmcK0TmgNT9UAHfg4v3Xd56 W83rW7WqaIA+IUFjfRJ9pVN5 uJ0lVfMjVeB5GNatG799TdQafI OiFsnoj1sfn8scfVw2EzD6LVUd baWdiUdzHPW6i6TqUk06V80l IHdpZHRoPSIxNSUiIHZhbGlnbj 4rnW8vYn0+KSIhlBZ6iIJ2iI7q CcHkUlQ7TEsvG502DoPipJCz Xkkff7efu2xlvIg0WrUhHILpsg AthZvkVMY9j2ZhIp76F8JcjPvs h7PfRct8zd34aOQfx6X2rKV1 E5SuDOFtljdufNWsoHdeFC2mCP LsjpjvRRWtxG5yGEVhT7x0RlQf IqP7NQbbT0SrkaY1HYBclQYx FYonJVD9V72is4G2MAJcOEZyYS J1lZQ4fB7trXteblfanPTqaOak bfClaGteKKukPGplB880MKUw dJxiTUOwtQ6wXKIaeHMrnKpgFR 4wNTBpbjsnPlNURUlOLCBWSVJH WC9BITOZBYS8J6RgLcd3MKGa kPyqPI0kpOZhCJfmVc1mgRxpwU leWU2gHFMksxprWHCmcJ0mBBMi qTIlfRtwYJ4dNSQmedqvd242 DtAhQNK1ISVpjVYbK2UcpM8sSm HvKXHgVXQsA0ZqyKRwXCbrP923 ICclMnR9YNYvevAzW6LfLOBi gUquUsS3m2O7Uy0kGR2mGJ6aIP eiHE56WC76gZTjd5L6kSW7F0Hb JLQfpxhcvaocdDT7QUYqLJWm vA42cSXbYYwaBg7yj5I6l126YA RoSDXyeU43Tc6ksGhdTQNstNMK bC2jlokif0yvpnyuJvRjVLDh BVi0VWr4ILGqrFkyRjBtOAD7Av J9RYE2lJNbuZ7twGpwolepmR5s Oyc+ZikpNDBolwN0K4XjBpj7 JYDojSoqQV1wjJGjUOttAa4whU ovgLzpGO8oEPPhcyniWZYrgS3d CXBmnZJvgPxlPG5cKWGtiokv g564AwNyDBX4GGFemMUxJ7YloV 5zXmHoTVZrHKJxD1NtoMKhAZox B060LZdkBsM2UDEoixEtW9Wu FTUcyTrlEoB0q1F1Dn1PFZ3NBB R3A3GtRhf0JGPtnLbzXN8qrXXf DPdtEb8qnIaqeNmeOI5mFQAs bjpoDMPcbD8eOKAwaVWsyNjpBT 1yYZDrokzkv386ZuVjDHE2PJQc hFPlI7RizF3jYvTxLBSyCWJz R3GtmOOqKPmdR067IMowDkG1JP QxohQxG5TfFLLpbFsqZgS1l8M3 Wh8UwGLtC4ZjE1k3B7BdKxgb dHI+LH51EFZfVB46xCYliVLdj3 hajBt5DbAgVLFvHPT8uCsdRTnt k6QgBGJbG85exJQcv5C3VDSh mQfrrNEtPxZgpJP7aZ8aKTwgzn tcw0nzenimQyqok0btkn01nV81 T26hPDasQNDtLNSeBATlUQVd tOwbnn0siP3xBa4+CGTlqGU0vX R3kM4dVhPrTiP6YPovB414MzGy zUFjUxoqj3xbk9mzhIh6SaUx EFAdshDldNdgUKU2x8YlSq63S6 9sIHdpZHRoPSIyMCUiIHZhbGln lb2noP4xRs9+YZ9vt8ftyi81 yH06eEY+PAFpJUT7xQajYEijZU IpkL8pVJtqCeT5RMHiXfVsjD95 cVArJYaqKi7vbAlmgTswJT2k UNBwjknia417AbBjy4wrFQLjgX RdEOdyHFL9S13zy1X8PDBiSPUh BOV2eQI9mA6qxFeozgvrcNSp bOctxfNqfHbhOIvlGJglY683ZP QuhFgdNtKttRWzZ7oihjDKIO8n OjwvdGQ+EKPgVAK7pIhaFJqo NMHezP6iWRReX3w0ChInKjH6CR obQ3DbicL2LYQacOUpWVBsgJRD mA9jyhmkm1snhqyqFgPiKWLo PHp8RLk1OJFwnSxyDvAdEOK0Lw S7TXV9uWVirT6cgGizyvsnsV5q Oyc+RklOOjwvdGQ+PHRkIHN0 fSimGFiyQJCpwU7vKRVvM4r6Ku DwIuR3BMyxV8KoifA6FQArdQQg OZQmqQHKqV7novofj0wyrrzg UyKlJJRaXUp5OYs3AKUunOibQf JkRIB0QoJ7AQQ9fZVwcL4keIzg kqkbbT9xPgk+TVJOOjwvdGQ+ AVPqRPU2zDdjOIxnWHDxoG5yAM WqS9p2PgRoPmZ0PNvfP9AwvxG5 NYAwvIQbZAMdtNZFuI9ljwyp x0zgyslnByLxCLFjBVh6TUl9OL FcuIhvXaInHQM7AqZ3ORQ8mEOh dV2fiBmbcmipiV7fQzs+UGF5 INZ5YW34CV04N7KrLfrfeGOajU U+PHRhYmxlIHdpZHRoPScxMDAl SdCknOyfNS0eGi8uGRZoAIRv bGx (more content not included)... Normal [facility] ED Clinical Summaryon 2021 ED Clinical Summary [facility] - Emergency Department [address] [place] [address] ED Clinical Summary PERSON INFORMATION Name: ZULEIKA WYATT Age: 31 Years Sex: FEMALE : 1990 MRN: Acct#: Visit Reason: Rib/trunk pain-swelling; ABD PAIN Arrival: 11/13/2021 16:30:24 Discharge: 11/13/2021 18:01:00 LOS: 000 01:31 Check In: 11/13/2021 16:30:24 Checkout:11/13/2021 18:01:00 Address: [address] [place] [address] [address] [facility] [address] PCP: Andie Stoddard PROVIDER INFORMATION Provider Role [...] With: Address: When: DIANA, CUONG [address] [place] [address] Within 1 to 2 days [...] results be sent to Dr. Ortiz, your ASSOCIATE PRINCIPAL physician. She will contact his office tomorrow [...] Patient/family/caregiver verbalizes understanding of instructions given Comment: [facility] ED Note-Nursingon 11-13-2021 ED Note-Nursing pt arrives [...] 6 with steady gait and no assistance. [facility] ED Patient Summaryon 022 ED Patient Summary [facility] - Emergency Department [address] [place] [address] PATIENT DISCHARGE INSTRUCTIONS Patient Information Name: ZULEIKA WYATT Age: 31 Years Date of : 1990 Reason For Visit: Rib/trunk pain-swelling; ABD PAIN Arrival Time: 11/13/2021 16:30:24 Primary Care Physician: Andie Stoddard Attending Physician: Gamaliel Wyman MD Comment: Visit Diagnosis: Diagnoses This Visit Elevated blood pressure reading (R03.0) History of abdominal pain (Z87.898) at early stage (Z34.90) Rib/trunk pain-swelling ([id number]) Prescription Information: If you have been given a prescription for narcotics, seek immediate medical attention if you have any difficulty breathing or any sudden status changes such as confusion and sleepiness. If you or anyone you know is experiencing suicidal thoughts, mental health, alcohol and/or drug addiction problems; contact the [facility] 07/01 Crisis Hotline -Text 4HPXN to 243377. If you received any narcotics, sedation, or [...] legal documents With: Address: When: CUONG ORTIZ [address] [employer] [place], [place] [id number] Within 1 to 2 days Comments: Diagnosis [...] results be sent to Dr. Ortiz, your ASSOCIATE PRINCIPAL physician. She will contact his office tomorrow [...] and treatment you received today in the [facility] Emergency Department were for an urgent problem and are not intended as complete care. It is important for you to follow up with a doctor, nurse practitioner, or physician?s patient services assistant for ongoing care. If your symptoms [...] so we can reach you if necessary. [facility] Emergency Department has provided you with a complete list of medications post discharge. Please inform your primary care provider/provider of your visit and for further instruction on these medications. Any specific questions regarding your chronic medications and dosages should be discussed with your primary care physician(s) and/or pharmacist. New Medications Printed Prescriptions [facility] Prescription (Quantitative beta-hCG) Quantitative beta-hCG. Please call [...] Temporal: 3 (more content not included)... Normal [facility] hCG Quantitativeon 2 hCG Quantitative 38474.0 mIU/mL High 0.0-0.6 [facility] Comment on above: Order Comment: Lucy whitney call or fax results to Dr. Ortiz's office Result Comment: Resu lt confirmed by dilution Post-Menopausal Reference Range is: 0.1-11.6 mIU/mL Performed By: #### 7 [id number] #### [facility] (DEFAULT) [address] [place] [address] Coding Summary.on 12-19-2018 Coding Summary. CODING DATE: 019 [facility] STATUS: Left Against Medical Advice PAYOR: Medicaid [...] Boykin Date Saved: 12/19/2018 10:35 am Normal [facility] ED Clinical Summaryon 2018 ED Clinical Summary (Inserted Image. Elena ble to display) [address] [address] ED Clinical Summary Person Information Name: ZULEIKA VILLALTA/[facility] Age: 28 Years : 1990 12:00 AM Sex: Female Language: PCP: Marital Status: Phone: [phone] Visit Id: Visit Reason: Test; MENSTRUAL PROBLEMS [...] 12/15/2018 5:58 PM 12/15/2018 5:58 PM ADDRESS: [address] [place] [address] [place] [id number] PHYS DOC NOTES: MEDICAL INFORMATION: Prescriptions Given: PATIENT EDUCATION INFORMATION: Instructions: Follow up: DIAGNOSIS: Normal [facility] ED Patient Education Noteon 12-15-2018 ED Patient Education Note Normal [facility] ED Patient Summaryon 019 ED Patient Summary (Inserted Image. Elena ble to display) [place] [id number] Patient Discharge Instructions Person Information Name: ZULEIKA VILLALTA Age: 28 Years Arrival Date: 12/15/2018 4:37 PM Discharge Diagnosis: Primary Care Physician: Provider Information Primary Provider: Advanced Survey Party Chief:None The exam and treatment you received in the Emergency Department were for an urgent problem and are not intended as complete care. It is important that you follow up with a doctor, nurse practitioner, or physician?s patient services assistant for ongoing care. If your symptoms [...] opioids can be used to help relieve hqnigntd-wz-tnusbv pain and are often prescribed following a [...] be struggling with addiction, tell your health healthcare market consultant and ask for guidance or call [facility] National Helpline at 0-999-792-XCGA. e Source: [place] Department of Health and Human Services/Center for Disease Control & Prevention [facility] Medications Given: Medication Dose Route No medications found. Medication Information: Comment: Pharmacy Information: Thank you for choosing [facility] Patient Education Materials: JADEN Jacome [place] , have received the following patient education materials/instructions and have verbalized understanding: Patient Education Materials: Follow-up Instructions: Prescriptions: Patient Signature __ Date Clinician/Nurse Signature Date 12/15/18 17:58:10 [facility] Progress Note-Nurseon 2018 Progress Note-Nurse Patient: [...] to take care of her daughter. Normal [facility] U BetaHcg Qualon 12-15-2018 HCG.beta subunit (U) [Moles/Vol] Negative Normal [facility] Comment on above: Performed By: #### 2 [id number], [id number] #### [facility] [address] [place] [address] UA With Cult Reflexon 2018 Bacteria LM Ql (Urine sed) TRACE Normal Trace [facility] Comment on above: Performed By: #### 2 [id number], [id number] #### [facility] [address] [place] [address] Bilirubin Ql (U) Negative Normal Negative [facility] Comment on above: Performed By: #### 2 [id number], [id number] #### [facility] [address] [place] [address] Clarity (U) CLEAR Normal Clear [facility] Comment on above: Performed By: #### 2 [id number], [id number] #### [facility] [address] [place] [address] Color (U) YELLOW Normal Yellow [facility] Comment on above: Performed By: #### 2 [id number], [id number] #### [facility] [address] [place] [address] Epithelial cells.squamous LM.HPF (Urine sed) [#/Area] 0-2 Normal 0-2 [facility] Comment on above: Performed By: #### 2 [id number], [id number] #### [facility] [address] [place] [address] Glucose Test strip (U) [Mass/Vol] Negative Normal Negative [facility] Comment on above: Performed By: #### 2 [id number], [id number] #### [facility] [address] [place] [address] Hemoglobin Ql (U) Negative Normal Negative [facility] Comment on above: Performed By: #### 2 [id number], [id number] #### [facility] [address] [place] [address] Ketones (U) [Mass/Vol] Negative Normal Negative [facility] Comment on above: Performed By: #### 2 [id number], [id number] #### [facility] [address] [place] [address] [place].plasma/[place] .RBC (Bld) [Mass ratio] 0-3 Normal 0-3 [facility] Comment on above: Performed By: #### 2 [id number], [id number] #### [facility] [address] [place] [address] Nitrite Ql (U) Negative Normal Negative [facility] Comment on above: Performed By: #### 2 [id number], [id number] #### [facility] [address] [place] [address] pH (U) 6.5 [pH] 5.0-9.0 [facility] Comment on above: Performed By: #### 2 [id number], [id number] #### [facility] [address] [place] [address] Protein (U) [Mass/Vol] Negative Normal Negative [facility] Comment on above: Performed By: #### 2 [id number], [id number] #### [facility] [address] [place] [address] Specific gravity (U) [Rel density] 1.010 1.005-1.03 0 [facility] Comment on above: Performed By: #### 2 [id number], [id number] #### [facility] [address] [place] [address] UA Spec Desc Clean Catch Normal [facility] Comment on above: Performed By: #### 2 5555511, [id number] #### [facility] [address] [place] [address] Urobilinogen Qn (U) 0.2 {Pamela'U}/dL Normal 0.0-1.0 [facility] Comment on above: Performed By: #### 2 [id number], [id number] #### [facility] [address] [place] [address] WBC Auto Ql (U) Negative Normal Negative [facility] Comment on above: Performed By: #### 2 9100516, [id number] #### [facility] [address] [place] [address] WBC LM.HPF (Urine sed) [#/Area] 0-5 Normal 0-5 [facility] Comment on above: Performed By: #### 2 [id number], [id number] #### [facility] [address] [place] [address] Auto Diffon 12-12-2017 Basophils Auto #/vol (Bld) 0.1 E3/mcL Normal 0.0-0.2 [facility] Comment on above: Order Comment: Order Added by Discern Expert. Performed By: #### 2 823548 ####KADEN BairdAnePycf[address] [place] [address] Basophils/100 WBC Auto (Bld) 0.9 % Normal 0.0-2.0 [facility] Comment on above: Order Comment: Order Added by Discern Expert. Performed By: #### 2 343906 ####KADEN BairdMshOezj6245 [place] [address] Eos Absolute 0.0 E3/mcL Normal 0.0-0.7 [facility] Comment on above: Order Comment: Order Added by Discern Expert. Performed By: #### 2 339262 ####KADEN BairdCvgPlrp7005 [place] [address] Eosinophils/100 leukocytes 0.4 % Normal 0.0-11.0 [facility] Comment on above: Order Comment: Order Added by Discern Expert. Performed By: #### 2 303813 ####KADEN BairdClgSjuy6225 [place] [address] Lymphocytes 1.4 E3/mcL Normal 1.2-3.4 [facility] Comment on above: Order Comment: Order Added by Discern Expert. Performed By: #### 2 507427 ####KADEN Luceroo[address] [place] [address] Lymphocytes/100 leukocytes 16.6 % Low 20.0-55.0 [facility] Comment on above: Order Comment: Order Added by Discern Expert. Performed By: #### 2 468010 ####KADEN [address] [place] [address] Forrest Absolute 0.5 E3/mcL Normal 0.0-0.7 [facility] Comment on above: Order Comment: Order Added by Discern Expert. Performed By: #### 2 583941 ####KADEN [address] [place] [address] Monocytes/100 leukocytes 5.5 % Normal 0.0-10.0 [facility] Comment on above: Order Comment: Order Added by Discern Expert. Performed By: #### 2 450432 ####KADEN [address] [place] [address] Neutro Absolute 6.7 E3/mcL High 1.4-6.5 [facility] Comment on above: Order Comment: Order Added by Discern Expert. Performed By: #### 2 244464 ####KADEN [address] [place] [address] Neutro Auto 76.6 % High 37.0-75.0 [facility] Comment on above: Order Comment: Order Added by Discern Expert. Performed By: #### 2 495570 ####KADEN [address] [place] [address] CBC w/ Auto Diffon 8 Erythrocyte distribution width Auto Ratio (RBC) 15.0 % High 11.5-14.5 [facility] Comment on above: Performed By: #### 2 756648 ####KADEN [address] [place] [address] Erythrocytes (RBC) 4.94 E6/mcL Normal 3.90-5.40 [facility] Comment on above: Performed By: #### 2 898819 ####KADEN [address] [place] [address] Hematocrit (HCT) 40.0 % Normal 36.0-48.0 [facility] Comment on above: Performed By: #### 2 037583 ####KADEN [address] [place] [address] Hemoglobin mass conc (Bld) 13.0 g/dL Normal 12.0-16.0 [facility] Comment on above: Performed By: #### 2 230577 ####KADEN [address] [place] [address] MCH 26.2 pg Low 27.0-31.0 [facility] Comment on above: Performed By: #### 2 753941 ####KADEN [address] [place] 7578[address] MCHC mass conc (RBC) 32.4 g/dL Low 33.0-37.0 [facility] Comment on above: Performed By: #### 2 741818 ####KADEN [address] [place] [address] MCV 81.0 fL Normal 78.0-100.0 [facility] Comment on above: Performed By: #### 2 735418 ####KADEN [address] [place] 7578[address] Platelet mean volume (PMV) 7.5 fL Normal 7.4-11.0 [facility] Comment on above: Performed By: #### 2 887727 ####KADEN [address] [place] [address] Platelets 347 E3/mcL Normal 130-400 [facility] Comment on above: Performed By: #### 2 477068 ####KADEN [address] [place] [address] WBC (Leukocytes) 8.7 E3/mcL Normal 3.6-11.0 [facility] Comment on above: Performed By: #### 2 223247 ####KADEN [address] [place] [address] CMPon 12-12-2017 Alanine aminotransferase (ALT) 14 Int._Unit/L Normal 10-40 [facility] Comment on above: Performed By: #### 2 807215 ####KADEN [address] [place] [address] Albumin 3.8 g/dL Normal 3.2-5.0 [facility] Comment on above: Performed By: #### 2 082021 ####KADEN [address] [place] [address] Albumin/Globulin Ratio 1.0 {ratio} Low 1.1-1.9 [facility] Comment on above: Performed By: #### 2 354642 ####KADEN [address] [place] [address] Alk Phos 75 Int._Unit/L Normal 42-121 [facility] Comment on above: Performed By: #### 2 694544 ####KADEN [address] [place] [address] Aspartate aminotransferase (AST) 18 Int._Unit/L Normal 10-42 [facility] Comment on above: Performed By: #### 2 552918 ####KADEN [address] [place] [address] Bili Total 1.0 mg/dL Normal 0.2-1.0 [facility] Comment on above: Performed By: #### 2 982770 ####KADEN [address] [place] [address] BUN/Creatinine Ratio 12.5 ratio Normal 5.4-30.0 [facility] Comment on above: Performed By: #### 2 241873 ####KADEN [address] [place] [address] Creatinine 0.8 mg/dL Normal 0.6-1.3 [facility] Comment on above: Performed By: #### 2 095427 ####KADEN [address] [place] [address] Globulin 3.8 g/dL Normal 2.0-4.0 [facility] Comment on above: Performed By: #### 2 852637 ####KADEN [address] [place] [address] Protein 7.6 g/dL Normal 6.4-8.3 [facility] Comment on above: Performed By: #### 2 993442 ####KADEN [address] [place] [address] Urea nitrogen 10 mg/dL Normal 7-18 [facility] Comment on above: Performed By: #### 2 655548 ####KADEN [address] [place] [address] Calcium 9.3 mg/dL Normal 8.4-10.2 [facility] Comment on above: Performed By: #### 2 926417 ####KADEN [address] [place] [address] Chloride 105 mmol/L Normal 98-107 [facility] Comment on above: Performed By: #### 2 879018 ####KADEN [address] [place] [address] CO2 25.1 mmol/L Normal 24.0-30.0 [facility] Comment on above: Performed By: #### 2 717987 ####KADEN LplIdey2268 [place] [address] Glucose mass conc 101 mg/dL High 70-99 [facility] Comment on above: Performed By: #### 2 768294 ####KADEN BlaIwjq6756 [place] [address] Potassium molar conc 3.4 mmol/L Low 3.5-5.1 [facility] Comment on above: Performed By: #### 2 681487 ####KADEN DpcAdls2686 [place] [address] Sodium 140 mmol/L Normal 136-145 [facility] Comment on above: Performed By: #### 2 494731 ####KADEN [address] [place] [address] Lipase Levelon 12-12-2017 Lipase Lvl 30 U/L Normal 8-57 [facility] Comment on above: Performed By: #### 2 997108 ####KADEN [address] [place] [address] UA Completeon 12-12-2017 UA Blood 3+ Normal Negative [facility] Comment on above: Performed By: #### 2 631361 ####KADEN [address] [place] [address] UA Bacteria Trace Abnormal None [facility] Comment on above: Performed By: #### 2 823582 ####KADEN [address] [place] [address] UA Clarity SltCloudy Abnormal Clear [facility] Comment on above: Performed By: #### 2 244986 ####KADEN [address]qyYofg[address] [place] [address] UA Hyal Cast 0-2 Normal 0-2 [facility] Comment on above: Performed By: #### 2 100236 ####KADEN [address]Eaia[address] [place] [address] UA Leuk Est 3+ Abnormal Negative [facility] Comment on above: Performed By: #### 2 947246 ####KAEDN [address]jca[address] [place] [address] UA Mucous Many Abnormal Trace [facility] Comment on above: Performed By: #### 2 367726 ####KADEN FioFqtv[address] [place] [address] UA Nitrite Negative Normal Negative [facility] Comment on above: Performed By: #### 2 652676 ####KADEN YzuLxth06[address] [place] [address] UA pH 5.0 Normal 4.6-8.0 [facility] Comment on above: Performed By: #### 2 729514 ####KADEN [address] [place] [address] UA Protein 1+ Abnormal Negative [facility] Comment on above: Performed By: #### 2 744847 ####KADEN LjwNpuf50[address] [place] [address] UA Spec Grav 1.026 Normal 1.003-1.03 0 [facility] Comment on above: Performed By: #### 2 201622 ####KADEN GmfDlll7720 [place] [address] UA Squam Epithelial 0-5 Normal 0-5 [facility] Comment on above: Performed By: #### 2 341359 ####KADEN GsfHtdc[address] [place] [address] UA Urobilinogen 2.0 mg/dL Abnormal [facility] Comment on above: Performed By: #### 2 117045 ####KADEN BairdAaoLcyw[address]01 [place] [address] UA WBC >50 Abnormal 0-5 [facility] Comment on above: Performed By: #### 2 728970 ####KADEN BairdFvcQqvc0299 [place] [address] Urine, color Yellow Normal Yellow [facility] Comment on above: Performed By: #### 2 462168 ####KADEN BairdUarFoto9604 [place] [address] Urine, erythrocytes 20-50 Abnormal 0-3 [facility] Comment on above: Performed By: #### 2 259287 ####KADEN [address] [place] [address] Urine, glucose Negative Normal Negative [facility] Comment on above: Performed By: #### 2 242101 ####KADEN [address] [place] [address] Urine, ketones presence Trace Normal [facility] Comment on above: Performed By: #### 2 649684 ####KADEN BairdRdwIjue8091 [place] [address] Urine, urobilinogen Negative Normal Negative [facility] Comment on above: Performed By: #### 2 288611 ####KADEN BairdFfsAkxj9431 [place] [address] eGFRon 12-12-2017 eGFR AA >60 Normal [facility] Comment on above: Order Comment: Order Added by Discern Expert. Performed By: #### 2 754594 ####KADEN BairdQkiMxad0712 [place] [address] eGFR (non-black) mL/min/{1.73_m2} Normal [facility] Comment on above: Order Comment: Order Added by Discern Expert. Performed By: #### 2 429518 ####KADEN BairdMkjVhmg9357 [place] [address] HISTORY PHYSICALon 8 HISTORY PHYSICAL HNO ID: [id number] thor: Clara Olivia WolfeService: Maternal MedicineAuthor Type: PhysicianType: HANDPFiled: 12/02/2017 9:04 AMNote Text:[facility] DOCUMENTDISCHARGE SUMMARYPatient Name: Zuleika Gtz Date: [...] 4 weeks with provider.Clara Jama, DO Normal [facility] PROGRESSon 12-02-2017 PROGRESS HNO ID: [id number] thor: Marie Lema (Res) LendeService: ObstetricsAuthor Type: [...] with more than 50% of the total fodj-xe-xaesmyhx of the visit in counseling / coordination [...] decreasing.Ambulating without difficulty.OBJECTIVE:PHYSI GEN EXAM:Heart: RR, S1, J7Hzdec: clear to auscultationAbdomen: Soft Bowel sounds present [...] 2017 : 5:45 AM Normal [facility] SOCIAL WORKon 12-02-2017 SOCIAL WORK HNO ID: [id number] thor: Meredith Jackson (Sw)oService: Social WorkAuthor Type: Social WorkerType: Social WorkFiled: 12/02/2017 12:25 PMNote Text:SOCIAL WORK CONSULT NOTESERVICE DATE: 12/02/2017SERVICE TIME: 1015Referred by: Jose for visit:Maternal/Infant - adjustment to conditionLiving Arrangement: HomeLives With: PartnerFinancial Resources: DisabledPrimary Contact:Extended Emergency Contact Information DARRELL BRANCH IIPrcape fear valley hoke hospitaladelaida Emergency Contact: No,ContactRelation: OtherSupportive: YesOther Important Patient [...] hospital. (FOBparents are Anamika Munoz of [address] [facility]).Per pt and FOB, all needed baby supplies and equipment are at the [facility] and a nursery has been set up.Per pt, name of baby girl is Martha Branch.Pt states she is on SSI and WIC.Pt shares that she is in ongoing counseling at [facility] in [place] and has appointments 2 x per month.Discussed with pt and FOB signs and sx of depression; safe babysleep and discussed ways to deal with crying . Pt again states sheis going to rely on her support system.No additional issues identified at this time. Encouraged pt and FOB toutilize services through [facility]. Providedcontact information.Outcome/Recomm endations:[facility]istance through [facility]ENTERime spent (minutes): 60SIGNATURE: CARLA Goncalves PATIENT NAME: Zuleika Hernandez: December 02, 2017 : 11:10 AM PAGER/CONTACT#: Debo [facility] ANES INTRAOPon 12-01-2017 ANES INTRAOP HNO ID: [id number] thor: Terrance Lockhartervice: AnesthesiologyAuthor Type: Nurse AnesthetistType: Anesthesia IntraOpFiled: 12/01/2017 9:41 AMNote Text:ANALGESIA PROGRESS RECORDCATHETER REMOVAL/END OF CASESERVICE DATE: 12/01/2017REMOVAL DATE AND TIME: 11/30/2017, 1953DELIVERY DATE AND TIME: 11/30/2017 at 5:49 PMCATHETER REMOVAL:Catheter Removal: See [facility]iky Nursing noteSIGNATURE: Terrance Contreras APRN.CRNA PATIENT NAME: Zuleika Hernandez: December 01, 2017 : 9:40 AM PAGER/CONTACT #: Debo [facility] ANES Keke 12-01-2017 ANES POST HNO ID: [id number] thor: Terrance Leblanc) JohanngService: AnesthesiologyAuthor Type: Nurse [...] 9:42 AM PAGER/CONTACT #: Debo [facility] PROGRESSon 12-01-2017 PROGRESS HNO ID: [id number] thor: Marie Lema (Joaquín) LendeService: ObstetricsAuthor Type: [...] decreasing.Ambulating without difficulty.OBJECTIVE:PHYSI GEN EXAM:Heart: RR, S1, S8Eaqrg: clear to auscultationAbdomen: Soft Bowel sounds present [...] 2017 : 6:40 AM Normal [facility] ABO/Rh Confirmationon 2017 ABO group Nom (Bld) A Normal [facility] Comment on above: Performed By: #### A JESSIE #### [facility] [address] [place] [address] RH Type Positive Normal [facility] Comment on above: Performed By: #### A JESSIE #### [place] [address] ANES PREOPon 11-30-2017 ANES PREOP HNO ID: [id number] thor: Aaron Leblanc) EarleyService: AnesthesiologyAuthor Type: Nurse [...] of Sleep Apnea: DeniesHematocritDate Value Ref Range Rkfsat2411/30/2017 32.3 (L) 34.1 - 44.9 % Final Platelet CountDate Value Ref Range Nyvtsh7911/30/2017 193 182 - 369 thou/cmm Final Vitals: [...] as needed. Disp: Rfl:Inpatient medications reviewed in [facility].I have interviewed and examined the patient. I have reviewed the medicalrecord , pertinent consults and/or the pre-anesthesia evaluation,pertinent labs, and test results.Significant changes in the patient's condition since the History andPhysical, not otherwise documented in primary service progress notes: [facility] contains updated information obtained within 48 hours ofSurgery/Procedure.SIGNAT URE: Hema Cuellar APRN.CRNA PATIENT NAME: Zuleika LambATE: November 30, 2017 : 12:13 PM : 1990 Normal [facility] Auto Diffon 11-30-2017 Basophils Auto #/vol (Bld) 0.1 E3/mcL Normal 0.0-0.2 [facility] Comment on above: Order Comment: Order Added by Discern Expert. Performed By: #### 2 624349 ####KADEN BairdJayCuhf[address]99 [place] [address] Basophils/100 WBC Auto (Bld) 0.9 % Normal 0.0-2.0 [facility] Comment on above: Order Comment: Order Added by Discern Expert. Performed By: #### 2 086325 ####KADEN BairdIigMbup4838 [place] [address] Eos Absolute 0.1 E3/mcL Normal 0.0-0.7 [facility] Comment on above: Order Comment: Order Added by Discern Expert. Performed By: #### 2 774438 ####KADEN BairdBccDbzg0412 [place] [address] Eosinophils/100 leukocytes 1.0 % Normal 0.0-11.0 [facility] Comment on above: Order Comment: Order Added by Discern Expert. Performed By: #### 2 235411 ####KADEN aBirdVgwAosj3663 [place] [address] Lymphocytes 2.0 E3/mcL Normal 1.2-3.4 [facility] Comment on above: Order Comment: Order Added by Discern Expert. Performed By: #### 2 690625 ####KADEN BairdBnnUeyq2806 [place] [address] Lymphocytes/100 leukocytes 22.1 % Normal 20.0-55.0 [facility] Comment on above: Order Comment: Order Added by Discern Expert. Performed By: #### 2 552289 ####KADEN BairdMcxJrot7499 [place] [address] Forrest Absolute 0.7 E3/mcL Normal 0.0-0.7 [facility] Comment on above: Order Comment: Order Added by Discern Expert. Performed By: #### 2 133045 ####KADEN BairdBadKtjy4600 [place] [address] Monocytes/100 leukocytes 7.5 % Normal 0.0-10.0 [facility] Comment on above: Order Comment: Order Added by Discern Expert. Performed By: #### 2 961112 ####KADEN [address] [place] [address] Neutro Absolute 6.1 E3/mcL Normal 1.4-6.5 [facility] Comment on above: Order Comment: Order Added by Discern Expert. Performed By: #### 2 836380 ####KADEN BairdLixFqpl2860 [place] [address] Neutro Auto 68.5 % Normal 37.0-75.0 [facility] Comment on above: Order Comment: Order Added by Discern Expert. Performed By: #### 2 510480 ####KADEN Lcueroo1025 [place] [address] CBC w/ Auto Diffon 8 Erythrocyte distribution width Auto Ratio (RBC) 14.3 % Normal 11.5-14.5 [facility] Comment on above: Performed By: #### 2 013702 ####KADEN BairdUauTroq4127 [place] [address] Erythrocytes (RBC) 4.34 E6/mcL Normal 3.90-5.40 [facility] Comment on above: Performed By: #### 2 535484 ####KADEN BairdUmfRxeg3763 [place] [address] Hematocrit (HCT) 35.1 % Low 36.0-48.0 [facility] Comment on above: Performed By: #### 2 747554 ####KADEN BairdPqaRzvx6003 [place] [address] Hemoglobin mass conc (Bld) 11.6 g/dL Low 12.0-16.0 [facility] Comment on above: Performed By: #### 2 707567 ####KADEN PbwFcga1084 [place] [address] MCH 26.6 pg Low 27.0-31.0 [facility] Comment on above: Performed By: #### 2 175815 ####KADEN BairdTuzVora4248 [place] [address] MCHC mass conc (RBC) 32.9 g/dL Low 33.0-37.0 [facility] Comment on above: Performed By: #### 2 833511 ####KADEN [address] [place] [address] MCV 80.9 fL Normal 78.0-100.0 [facility] Comment on above: Performed By: #### 2 528853 ####KADEN [address] [place] [address] Platelet mean volume (PMV) 7.6 fL Normal 7.4-11.0 [facility] Comment on above: Performed By: #### 2 214511 ####KADEN [address] [place] [address] Platelets 217 E3/mcL Normal 130-400 [facility] Comment on above: Performed By: #### 2 987377 ####KADEN [address] [place] [address] WBC (Leukocytes) 8.8 E3/mcL Normal 3.6-11.0 [facility] Comment on above: Performed By: #### 2 032842 ####KADEN [address] [place] [address] CONSULTon 11-30-2017 CONSULT HNO ID: [id number] thor: Marie Lema (Res) LendeService: ObstetricsAuthor Type: [...] T0 L0 SAB1 TAB0 Ectopic0 Multiple0 Live Tjamur7Diid of Baby 1: Not recorded Date: 2014 [...] pupils equal, no thyromegalyLungs: clearHeart: RR, S1, W3Ntbwkco: soft, nontender, no massesUterus: soft, NTExtremities: 1+ [...] Epi prn4. FB soon5. s/[place] [address]. anomalies- prominent cisterna magna, bilateral periventrcularnodular heterotopia, [...] EF 55%.10. H/o maternal clubfoot-s/p repair as wiyhxb79. H/o tobacco abuseSigned out to [facility] for deliveryDr. Amado reviewed with Dr. MaldonadoSIGNATURE: Marie Hassan DO PATIENT NAME: Zuleika LambATE: November 30, 2017 : 6:49 AM PAGER/CONTACT #: [phone] Normal [facility] HISTORY PHYSICALon 8 HISTORY PHYSICAL HNO ID: [id number] thor: Marie Lema (Res) JabiereService: ObstetricsAuthor Type: [...] T0 L0 SAB1 TAB0 Ectopic0 Multiple0 Live Gtbsut8Ghot of Baby 1: Not recorded Date: 2014 [...] pupils equal, no thyromegalyLungs: clearHeart: RR, S1, C9Tneoxfw: soft, nontender, no massesUterus: soft, NTExtremities: 1+ [...] Epi prn4. FB soon5. [place] [address]. anomalies- prominent cisterna magna, bilateral periventrcularnodular heterotopia, [...] . H/o tobacco abuseSigned out to [facility] for deliveryD/w Dr. AmadoSIGNATURE: Marie Hassan DO PATIENT NAME: Zuleika LambATE: November 30, 2017 : 6:49 AM PAGER/CONTACT #: [phone] Normal [facility] Hemogramon 11-30-2017 Erythrocyte distribution width Ratio (RBC) 13.6 % Normal 11.7-14.4 [facility] Comment on above: Performed By: #### C BC1 #### [facility] [address] [place], [place] [address] Hematocrit Volume Fraction (Bld) 32.3 % Low 34.1-44.9 [facility] Comment on above: Performed By: #### C BC1 #### [facility] [address] [place] [address] Hemoglobin mass conc (Bld) 10.4 g/dL Low 11.2-15.7 [facility] Comment on above: Performed By: #### C BC1 #### [facility] [address] [place] [address] MCH Entitic mass (RBC) 26.4 pg Normal 25.6-32.2 [facility] Comment on above: Performed By: #### C BC1 #### [facility] [address] [place] [address] MCHC mass conc (RBC) 32.2 % Normal 31.6-34.8 [facility] Comment on above: Performed By: #### C BC1 #### [facility] [address] [place] [address] MCV Entitic volume (RBC) 82.0 fL Normal 79.4-94.8 [facility] Comment on above: Performed By: #### C BC1 #### [facility] [address] [place] [address] Platelet mean volume Entitic volume (Bld) 9.9 fL Normal 9.4-12.3 [facility] Comment on above: Performed By: #### C BC1 #### [facility] [address] [place] [address] Platelets #/vol (Bld) 193 thou/cmm Normal 182-369 [facility] Comment on above: Performed By: #### C BC1 #### [facility] [address] [place] [address] RBC #/vol (Bld) 3.94 mil/cmm Normal 3.93-5.22 [facility] Comment on above: Performed By: #### C BC1 #### [facility] [address] [place] [address] RDW SD 40.6 fl Normal 36.4-46.3 [facility] Comment on above: Performed By: #### C BC1 #### [facility] [address] [place] [address] WBC #/vol (Bld) 9.85 thou/cmm Normal 3.98-10.04 [facility] Comment on above: Performed By: #### C BC1 #### [facility] [address] [place] [address] LD NOTEon 11-30-2017 LD NOTE HNO ID: [id number] thor: Marie Lema (Res) LendeService: ObstetricsAuthor Type: ResidentType: LANDD Delivery NoteFiled: 11/30/2017 6:19 PMNote Text: -------Attestation signed by Serenity Maldonado MD at 12/01/2017 6:04 PMI saw and evaluated the patient. I reviewed the resident's note and agree,except that patient seen by [facility] (patient has FAS, fetus with multipleanomlaies) service, consult placed to [facility] for management of labor AND delivery.Essential primip presented at 39w with PROM, had Pugh balloon AND Pitocin foraugmentaion. Late in labor noted tachycardia that improved with IVFB ANDTylenol (mother rico had elevated temp but felt warm). [facility] [place] [facility] so baby could go to awaiting NICU team for evaluation (was allowed tohave delivery to abdomen AND 30 sec delay for cord clamping). Pushed well AND hadSVD of a viable female infant (APGARS 8,9, weight of 3200g/7#1oz) over intactperineum. Uterus slightly boggy after delivery, responded to massage AND Pitocininfusion, EBL ~500cc.Serenity Maldonado MD ----OBSTETRICSDELIVERY SUMMARY - VAGINAL DELIVERYGestational Age at Delivery: 19g6bLofjsvw Date: 11/30/2017Service Time: 1800Keegan, Bg Zuleika Dillard [[id number]]Labor EventsRupture Date: 11/30/17Rupture Time: 224Rupture Type: PROMFluid [...] 11/30/2017 5:55 PMRemoval: SpontaneousAppearance: IntactAnesthesia:Method: EpiduralMeasurements, Apgars:Code [place] Called: YesType of Code [place] Team Needed: PlannedA digital sweep of the [...] 2017 : 6:15 PM Normal [facility] NURSING PROGon 11-30-2017 NURSING PROG HNO ID: [id number] thor: Marguerite (Rn) ANEUDY Albarranervice: (none)Author Type: Registered NurseType: Nursing Progress NoteFiled: 11/30/2017 7:06 PMNote Text: INTRODUCED SELF TO PATIENT AND SUPPORT PERSONS. PLAN OF CARE DISCUSSED.ASSESSMENT PERFORMED. PATIENT DENIES COMPLAINTS. Normal [facility] NURSING PROG HNO ID: [id number] thor: Darcie (Rn) ANEUDY Landeroservice: NursingAuthor Type: Registered NurseType: Nursing Progress NoteFiled: 11/30/2017 10:03 AMNote Text:Patient up to shower for comfort. Boyfriend at side. On telemetrymonitors. RN remains in room. FHR difficult to maintain continuoustracing Normal [facility] NURSING PROG HNO ID: [id number] Author: Norah (Rn) KARRI Eastman Service: Nursing Author Type: Registered Nurse Type: Nursing Progress Note Filed: 11/30/2017 7:18 AM Note Text: Report given to Darcie DURAN and care transferred at this time. Normal [facility] PROCEDUREon 11-30-2017 PROCEDURE HNO ID: [id number] thor: Aaron (Sanitation Worker Cleaning Machinery) EarleyService: AnesthesiologyAuthor Type: Nurse AnesthetistType: ProceduresFiled: 11/30/2017 [...] Catheter in Epidural Space: 5 cmInterspace: approximately L2-R6Ctmwqm of Attempts: 1Wet Tap Complication: NoDural Puncture [...] nurses' documentation for additional vitals.SIGNATURE: Hema Cuellar APRN.MANAGER MANAGING PATIENT NAME: Zuleika LambATE: November 30, 2017 : 12:27 PM PAGER/CONTACT #: [facility] PROGRESSon 11-30-2017 PROGRESS HNO ID: [id number] thor: Marie Lema (Res) JabiereService: ObstetricsAuthor Type: ResidentType: Progress NotesFiled: 11/30/2017 5:04 PMNote Text:UpdatePatient is pushing in the OR. Cat I FHRT with baseline around 160s. updated and in house.Franki Neri 2017 5:04 PM [facility] PROGRESS HNO ID: [id number] Author: Darcie (Rn) KARRI Landeros Service: Nursing Author Type: Registered Nurse Type: Progress Notes Filed: 11/30/2017 3:29 PM Note Text: Patient feeling pressure, cervical exam 9.5 cm. NICU notified. Patient feels warm, but temp 36.9. [facility] PROGRESS HNO ID: [id number] thor: Marie Lema (Res) Tristanrvice: ObstetricsAuthor Type: [...] pt comfortable4. s/p FB5. [place] [address]. anomalies- prominent cisterna magna, bilateral periventrcularnodular heterotopia, [...] EF 55%.10. H/o maternal clubfoot-s/p repair as xylyjn64. H/o tobacco abuse12. Cat II- Isolate late decelerations. Moderate variability. Continuingto make cervical change. Not on Cat II protocol.SIGNATURE: Marie Hassan DO PATIENT NAME: Zuleika LambATE: November 30, 2017 : 1:35 PM PAGER/CONTACT #: [phone] Normal [facility] PROGRESS HNO ID: [id number] thor: Yolanda (Joaquín) SnyderService: ObstetricsAuthor Type: ResidentType: [...] pt comfortable4. s/p [place] [address]. anomalies- prominent cisterna magna, bilateral periventrcularnodular heterotopia, [...] EF 55%.10. H/o maternal clubfoot-s/p repair as kyssjy30. H/o tobacco abuseSIGNATURE: Yolanda Barbosa DO PATIENT NAME: Zuleika LambATE: November 30, 2017 : 1:11 PM PAGER/CONTACT #: [phone] [facility] PROGRESS HNO ID: [id number] thor: Yolanda (Joaquín) GabrielaerService: ObstetricsAuthor Type: ResidentType: [...] Pit per protocol3[place] [address]. [place] [address]. anomalies- prominent cisterna magna, bilateral periventrcularnodular heterotopia, [...] EF 55%.10. H/o maternal clubfoot-s/p repair as fhistj56. H/o tobacco abuseSIGNATURE: Yolanda Barbosa DO PATIENT NAME: Zuleika BecerrilnDATE: November 30, 2017 : 11:05 AM PAGER/CONTACT #: [phone] [facility] PROGRESS HNO ID: [id number] Author: Darcie (Rn) KARRI Landeros Service: Nursing Author Type: Registered Nurse Type: Progress Notes Filed: 11/30/2017 10:35 AM Note Text: Unable to find labwork for chart. [facility] PROGRESS HNO ID: [id number] thor: Marie Lema (Res) JabeireService: ObstetricsAuthor Type: ResidentType: Progress NotesFiled: 11/30/2017 10:33 [...] Pit per protocol3. [place] [address]. [place] [address]. anomalies- prominent cisterna magna, bilateral periventrcularnodular heterotopia, [...] 30, 2017 : 10:31 AM PAGER/CONTACT #: [phone] [facility] PROGRESS HNO ID: [id number] thor: Darcie [place]) ANEUDY Landeroservice: NursingAuthor Type: Registered NurseType: Progress NotesFiled: 11/30/2017 10:13 AMNote Text:Patient remains in shower. RN and boyfriend at side. EFM on telemetryand adjusted while patient in shower. Difficult to keep baby on. Normal [facility] PROGRESS HNO ID: [id number] thor: Yolanda (Res) SnyderService: ObstetricsAuthor Type: ResidentType: Progress NotesFiled: 11/30/2017 7:35 AMNote Text:In to place FB. Pt tolerated procedure well. Continues to leak clearfluid. Pt uncomfortable with contractions.Cat I FHT, reactive with accelsToco: 2-5 minsHeather Romina, PGY-1Obstetrics and GynecologyPager [phone]/7:34 AM Normal [facility] Type and Screenon 11-30-2017 ABO group Nom (Bld) A Normal [facility] Comment on above: Performed By: #### T &S #### [place] [id number] Comment See Below [facility] Comment on above: Result Comment: Scre en &/or Xmatch expires in 3 days at 12 midnight. Redraw patient at that time. Performed By: #### T &S #### [place] [address] RH Type Positive Normal [facility] Comment on above: Performed By: #### T &S #### [place] [address] Progress Noteon 11-28-2017 Investment [employer] Authentication Interface Message Text Routine VisitSubjective: Zuleika Villalta is being seen today for her obstetrical visit. She is at 37q6mdikdjhsri. Patient reports no complaints. Movement: normal. She [...] ultrasounds every 4 weeks.DELIVERY PLANHospital: [facility] HospitalInduction at 39 weeks; CYTOTEC IOL 18 at 5 pm at [facility]. Pre-Procedure formdone (CG)GBS culture: neg 11/07/17Contraception: Considering [...] echo in [facility] POC reviewedShe would like her follow up and contraception with Dr. Ivan.The total patient time of the visit was 15 minutes, of which greater than 50% ofthe time was spent counseling and coordinating care. Normal [facility] Progress Noteon 11-22-2017 [employer] Authentication Interface Message Text [facility] plan of care faxed to [facility] in event pt would arrive for urgent management. Normal [facility] Progress Noteon 11-21-2017 [employer] Authentication Interface Message Text Routine VisitSubjective: Zuleika Villalta is being seen today for her obstetrical visit. She is at 57a2yfujalgqwi. Patient reports that she went to [facility] last night due toconcerns for labor. [...] ultrasounds every 4 weeks.DELIVERY PLANHospital: [facility] HospitalInduction at 39 weeks; CYTOTEC IOL 618-18 at 5 pm at [facility]. Pre-Procedure formdone (CG)GBS culture: neg 11/07/17Contraception: Considering [...] scheduled for IOL on12/02/17.Oksana amado MD Normal [facility] Progress Noteon 11-12-2017 Investment [employer] Authentication Interface Message Text Call from [facility] that pt presented there in labor. [facility] plan of care and ACOGs faxed by Toan Chen. Provided after hours MFM number provided. Normal [facility] Group B Strep Cultureon 10-16 Group B Strep Culture Group B Strep Cult ure: No Group B Streptococci isolated. Source: VAG Collected: 11/07/17 09:00 Site: Vaginal/Rectal Received : 11/07/17 22:01Group B Strep Culture FINAL 11/10/17 08:34 No Group B Streptococci isolated. Normal [facility] Comment on above: Performed By: #### G [facility] ####[address] [place], [place] [phone] Progress Noteon 11-07-2017 [employer] Authentication Interface Message Text Routine VisitSubjective: Zuleika Villalta is being seen today for her obstetrical visit. She is at 90b2jwpdkkmxni. Patient reports occasional nausea. No emesis. She [...] ultrasounds every 4 weeks.DELIVERY PLANHospital: [facility] HospitalInduction at 39 weeksGBS culture: collected and [...] OB visit and BPP.Oksana Amado MD Normal [facility] Progress Noteon 10-24-2017 [employer] Authentication Interface Message Text Routine VisitSubjective: Zuleika [...] ultrasounds every 4 weeks.DELIVERY PLANHospital: [facility] HospitalInduction at 39 weeksGBS culture:Contraception: Considering LARC [...] and coordinating care.Marco Antonio Antonio DO Normal [facility] Progress Noteon 10-15-2017 [employer] Authentication Interface Message Text Ped selection made. Updated prenatals Normal [facility] Progress Noteon 10-08-2017 [employer] Authentication Interface Message Text Thank you for [...] size. There was a patent foramen ovale, iexoyrmsf-ri-cdmh shunt.Tricuspid valve:Normal tricuspid valve. There was normal [...] fetuses and in fetuses with CHD and spbsdsutrqxwk70z42, the ratio being below 0.3 )Impression and recommendations.1) Abnormal 3-vessel view, ascending aorta was moderately dilated. 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 thymic thoracic ratio (TT-ratio)=0.1 ( TT-ratio 0.44 in normal fetuses and in fetuses with CHD and ohhrapbrdjrsv24k56, the ratio being below 0.3 )5) Normal [...] treatments, follow up fetalechocardiograms and follow ups.10) [place] Echocardiogram prior to the discharge from the nursery or earlier ifcardiac condition/status changes in any way. follow up and treatmentshould be determined on the basis of the findings on the initial echocardiogram.Counseling and/or coordination of care was greater than 35 minutes which is morethan 50% of the total time of 60 minutes spent on the encounter. Normal [facility] Investment Executive Authentication Interface Message Text Initial VisitSubjective: Zuleika [...] ultrasounds every 4 weeks.DELIVERY PLANHospital: [facility] HospitalInduction at 39 weeksGBS culture:Contraception:TDAP recommended Constipation [...] weeks for OB visit and BPP in [place].Oksana Amado MD Normal [facility] Cytogenomic Microarray Nivia sis of Bloodon 09-10-2017 Cytogenomic Microarray Analysis of Blood SEE BELOW Normal [facility] Comment on above: Result Comment: SPEC IMEN: BLOODCLINICAL INFORMATION: Learning disability[F81.9]TEST: CYTOGENOMIC MICROARRAY ANALYSISRESULT SUMMARY:Normal femaleNOMENCLATURE:arr(1-22,X)d6VBYXOXUMSIIUOG & COMMENTS:The cytogenomics microarray analysis indicated no [...] whole genome microarray analysis was performed the FDA-clearedEmerging Threats([employer]ge[employer] Dx platform, which contains approximately 2.7million markers, including 1,953,246 unique non-polymorphic copy numberprobes and 743,304 single nucleotide polymorphism (SNP) probes. Thegenome-wide functional resolution of this assay is approximately 25 kbfor deletions and 50 kb for duplications. This microarray andassociated software (Chromosome Analysis Suite Dx) were manufactured [employer] and used by the Cytogenetics and Molecular DiagnosticsLaboratories of [facility] for the purpose ofidentifying DNA copy [...] further information regarding intendeduse and limitations, see [email or web address].Note: The Cytogenetics Laboratory has this patient's blood [...] for additional testing. 09/19/2017 BIGG GARCIA, PH.D., [facility] 09/19/2017 Performed By: #### M CRY1 ####[facility] [place], [place] [phone] MRI (SINGLE)on 018 MRI (SINGLE) MRI (SINGLE)CL [...] Dr. AJ CAMILO at 09/10/2017 10:21 Normal [facility] Progress Noteon 09-10-2017 Investment Executive Authentication Interface Message Text The total patient time of the visit was 15 minutes, of which greater than 50% of the time was spent counseling and coordinating care. Normal [facility] Auto Diffon 09-03-2017 Basophils Auto #/vol (Bld) 0.1 E3/mcL Normal 0.0-0.2 [facility] Comment on above: Order Comment: Order Added by Discern Expert. Performed By: #### 2 [id number] ####KADEN [address] [place] [address] Basophils/100 WBC Auto (Bld) 0.5 % Normal 0.0-2.0 [facility] Comment on above: Order Comment: Order Added by Discern Expert. Performed By: #### 2 [id number] ####KADEN [address] [place] [address] Eos Absolute 0.0 E3/mcL Normal 0.0-0.7 [facility] Comment on above: Order Comment: Order Added by Discern Expert. Performed By: #### 2 [id number] ####KADEN [address] [place] [address] Eosinophils/100 leukocytes 0.4 % Normal 0.0-11.0 [facility] Comment on above: Order Comment: Order Added by Discern Expert. Performed By: #### 2 [id number] ####KADEN [address] [place] [address] Lymphocytes 1.3 E3/mcL Normal 1.2-3.4 [facility] Comment on above: Order Comment: Order Added by Discern Expert. Performed By: #### 2 908437 ####KADEN [address] [place] [address] Lymphocytes/100 leukocytes 13.1 % Low 20.0-55.0 [facility] Comment on above: Order Comment: Order Added by Discern Expert. Performed By: #### 2 066814 ####KADEN [address] [place] [address] Forrest Absolute 0.4 E3/mcL Normal 0.0-0.7 [facility] Comment on above: Order Comment: Order Added by Discern Expert. Performed By: #### 2 712379 ####KADEN [address] [place] [address] Monocytes/100 leukocytes 4.3 % Normal 0.0-10.0 [facility] Comment on above: Order Comment: Order Added by Discern Expert. Performed By: #### 2 625013 ####KADEN [address] [place] [address] Neutro Absolute 8.4 E3/mcL High 1.4-6.5 [facility] Comment on above: Order Comment: Order Added by Discern Expert. Performed By: #### 2 290674 ####KADEN [address] [place] [address] Neutro Auto 81.7 % High 37.0-75.0 [facility] Comment on above: Order Comment: Order Added by Discern Expert. Performed By: #### 2 731482 ####KADEN [address] [place] [id number] CBC w/ Auto Diffon 8 Erythrocyte distribution width Auto Ratio (RBC) 13.1 % Normal 11.5-14.5 [facility] Comment on above: Performed By: #### 2 975213 ####KADEN [address] [place] [id number] Erythrocytes (RBC) 3.90 E6/mcL Normal 3.90-5.40 [facility] Comment on above: Performed By: #### 2 357736 ####KADEN [address] [place] [id number] Hematocrit (HCT) 34.7 % Low 36.0-48.0 [facility] Comment on above: Performed By: #### 2 901662 ####KADEN [address] [place] [address] Hemoglobin mass conc (Bld) 11.8 g/dL Low 12.0-16.0 [facility] Comment on above: Performed By: #### 2 953458 ####KAD[address] [place] [address] MCH 30.3 pg Normal 27.0-31.0 [facility] Comment on above: Performed By: #### 2 852540 ####KADEN [address] [place] [id number] MCHC mass conc (RBC) 34.2 g/dL Normal 33.0-37.0 [facility] Comment on above: Performed By: #### 2 781910 ####KADEN [address] [place] [id number] MCV 88.8 fL Normal 78.0-100.0 [facility] Comment on above: Performed By: #### 2 698475 ####KADEN [address] [place] [id number] Platelet mean volume (PMV) 7.3 fL Low 7.4-11.0 [facility] Comment on above: Performed By: #### 2 962421 ####KADEN [address] [place] [address] Platelets 218 E3/mcL Normal 130-400 [facility] Comment on above: Performed By: #### 2 432901 ####KADEN [address] [place] [address] WBC (Leukocytes) 10.2 E3/mcL Normal 3.6-11.0 [facility] Comment on above: Performed By: #### 2 425922 ####KADEN [address] [place] [address] Gest Scr Glu 1 Hron 09-04-19 18 Glucose mass conc 113 mg/dL Normal 70-140 [facility] Comment on above: Performed By: #### 2 919359 ####KADEN [address] [place] [address] FISH Probeon 08-13-2017 Protein mass conc SEE BELOW Normal [facility] Comment on above: Result Comment: SPEC IMEN: BLOOD - [id number] INFORMATION:TEST: FISH Analysis of the DiGeorge/VCFS Region [...] Metaphase images: 2The Vysis LSI DARREN Spectrum Stanley Probe contains the DARREN gene (3'non-coding region of TUPLE1, J45S960, and D02Y1956. The Vysis LSI ARSAspectrum Green Probe includes [...] performance characteristics determinedby the Cytogenetics Laboratory of [facility]. It hasnot been cleared or approved [...] J Med Barbara 66:250-256,1995. BIGG GARCIA, PH.D., [facility] 08/16/2017 Performed By: #### F [facility] ####[address] [phone] Progress Noteon 08-13-2017 Investment Executive Authentication Interface Message Text Met with patient [...] share information with FTC team, OB and mechanic foreman signed. Pt plans to deliver in [place] with [facility]. Currently with Dr. 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 [facility] provided and discussed importance ofselection [...] was spent counseling and coordinating care. Normal [facility] Investment Executive Authentication Interface Message Text Thank you for [...] size. There was a patent foramen ovale, rodtlycku-cl-tjep shunt.Tricuspid valve:Normal tricuspid valve. There was normal [...] 60 minutes spent on the encounter. Normal [facility] Progress Noteon 07-18-2017 Investment Executive Authentication Interface Message Text [facility]- MEDICINE CONSULTReferring/Requestin g Provider: VINI FranklinCP: [...] no palpitations. She usually doesnot see a jewelry sales representative, but did have a recent echo due [...] as a child 07/18/2017 Consider evaluation with director social welfare to assess for any needs duringpregnancy or after. Will have genetic consult with [facility] evaluation. cardiac anomaly complicating , antepartum 07/18/2017 Dilated aortic root seen on ultrasound along with large umbilical cordvarix, dolichocephaly DW Dr. Zazueta, verbal order to refer to [facility] Will be scheduled with pediatric cardiology. Also, patient and family members have a history of learning disabilities,including an individual learning plan in school. She will talk to her familymembers and bring as much information as is available for her genetics consult.She has transportation to [place] and is willing [facility]The total patient time of the visit was 30 minutes, of which was greater than50% of the time was spent counseling and coordinating care. Normal [facility] IGP W/hpv Rfx [id number] 05-07 Diagnosis: See Ref Lab Report Normal [facility] Comment on above: Order Comment: Thin Prep. Performed By: #### 2 [id number] ####KADEN [address] [place] [address] C Urineon 05-03-2017 C Urine Final Report: Normal skin alonso isolated Normal [facility] Comment on above: Performed By: #### 2 043911 ####KADEN [address] [place] [address] RPRon 05-03-2017 RPR Ql Non-Reactive Normal Non-Reacti ve [facility] Comment on above: Performed By: #### 2 151378 ####KADEN [address] [place] [address] Hep Bs Agon 05-02-2017 BSA (Body Surface Area) Negative Normal Negative [facility] Comment on above: Result Comment: Perf ormed At: CB [facility] [address] [place], [place] [id number] Vincent PhD Ph:[phone] Performed By: #### 2 160129 ####KADEN [address] [place] [address] ABO/Rh Echoon 05-01-2017 ABO/Rh E Interp... Positive Normal [facility] Comment on above: Performed By: #### 2 254786 ####KADEN [address] [place] [address] Antibody Screen Cap...on Screen Interp... Negative Normal [facility] Comment on above: Performed By: #### 2 [id number] ####KADEN [address] [place] [address] Auto Diffon 05-01-2017 Basophils Auto #/vol (Bld) 0.0 E3/mcL Normal 0.0-0.2 [facility] Comment on above: Order Comment: Order Added by Discern Expert. Performed By: #### 2 155218 ####KADEN Urinalysis Manual [address] [place] [address] Basophils/100 WBC Auto (Bld) 0.4 % Normal 0.0-2.0 [facility] Comment on above: Order Comment: Order Added by Discern Expert. Performed By: #### 2 221703 ####KADEN Urinalysis Manual [address] [place] [address] Eos Absolute 0.1 E3/mcL Normal 0.0-0.7 [facility] Comment on above: Order Comment: Order Added by Discern Expert. Performed By: #### 2 264727 ####KADEN Urinalysis Manual [address] [place] [address] Eosinophils/100 leukocytes 0.7 % Normal 0.0-11.0 [facility] Comment on above: Order Comment: Order Added by Discern Expert. Performed By: #### 2 562949 ####KADEN Urinalysis Manual [address] [place] [address] Lymphocytes 1.8 E3/mcL Normal 1.2-3.4 [facility] Comment on above: Order Comment: Order Added by Discern Expert. Performed By: #### 2 111154 ####KADEN Urinalysis Manual [address] [place] [address] Lymphocytes/100 leukocytes 17.1 % Low 20.0-55.0 [facility] Comment on above: Order Comment: Order Added by Discern Expert. Performed By: #### 2 574720 ####KADEN Urinalysis Manual [address] [place] [address] Forrest Absolute 0.5 E3/mcL Normal 0.0-0.7 [facility] Comment on above: Order Comment: Order Added by Discern Expert. Performed By: #### 2 908222 ####KADEN Urinalysis Manual [address] [place] [address] Monocytes/100 leukocytes 5.0 % Normal 0.0-10.0 [facility] Comment on above: Order Comment: Order Added by Discern Expert. Performed By: #### 2 260101 ####KADEN Urinalysis Manual [address] [place] [address] Neutro Absolute 8.0 E3/mcL High 1.4-6.5 [facility] Comment on above: Order Comment: Order Added by Discern Expert. Performed By: #### 2 085085 ####KADEN Urinalysis Manual [address] [place] [address] Neutro Auto 76.8 % High 37.0-75.0 [facility] Comment on above: Order Comment: Order Added by Discern Expert. Performed By: #### 2 039235 ####KADEN Urinalysis Manual [id number] [place] [address] CBC w/ Auto Diffon 7 Erythrocyte distribution width Auto Ratio (RBC) 15.2 % High 11.5-14.5 [facility] Comment on above: Performed By: #### 2 315776 ####KADEN Urinalysis Manual Zmzgufvazd[address] [place] [address] Erythrocytes (RBC) 4.90 E6/mcL Normal 3.90-5.40 [facility] Comment on above: Performed By: #### 2 397126 ####KADEN Urinalysis Manual Ldjocrttpn[address] [place] [address] Hematocrit (HCT) 41.1 % Normal 36.0-48.0 [facility] Comment on above: Performed By: #### 2 188040 ####KADEN Urinalysis Manual Tztwiffyxz7552[address] [place] [address] Hemoglobin mass conc (Bld) 13.5 g/dL Normal 12.0-16.0 [facility] Comment on above: Performed By: #### 2 559222 ####KADEN Urinalysis Manual Zljubhcgqv7819[address] [place] [address] MCH 27.5 pg Normal 27.0-31.0 [facility] Comment on above: Performed By: #### 2 200985 ####KADEN Urinalysis Manual Fvafodcosx7252[address] [place] [address] MCHC mass conc (RBC) 32.8 g/dL Low 33.0-37.0 [facility] Comment on above: Performed By: #### 2 796159 ####KADEN Urinalysis Manual Xzioudkzbb1507[address] [place] [address] MCV 83.9 fL Normal 78.0-100.0 [facility] Comment on above: Performed By: #### 2 157548 ####KADEN Urinalysis Manual Smeekmhaam8365[address] [place] [address] Platelet mean volume (PMV) 8.0 fL Normal 7.4-11.0 [facility] Comment on above: Performed By: #### 2 681194 ####KADEN Urinalysis Manual Asakddjaja[address]67[address] [place] [address] Platelets 246 E3/mcL Normal 130-400 [facility] Comment on above: Performed By: #### 2 947510 ####KADEN Urinalysis Manual Zknarroame7697[address] [place] [address] WBC (Leukocytes) 10.4 E3/mcL Normal 3.6-11.0 [facility] Comment on above: Performed By: #### 2 138627 ####KADEN Urinalysis Manual Qlxuwntzhl5746[address] [place] [address] Chlamydia GC by PCRon 2016 Chlamydia by PCR. Not Detected Normal Not Detected [facility] Comment on above: Result Comment: Xper t CT/NG Assay performance has not been evaluated in patients less than 14 years of age. Performed By: #### 2 271865 ####KADEN [address]hjAeqb[address] [place] [id number] Gonorrhoeae by PCR Not Detected Normal Not Detected [facility] Comment on above: Result Comment: Xper t CT/NG Assay performance has not been evaluated in patients less than 14 years of age. Performed By: #### 2 036283 ####KADEN CemOjwt14[address] [place] [id number] HIV-1/2 Ag/Abon 05-01-2017 HIV-1/2 Ag/Ab Non-Reactive Normal Non-Reacti ve [facility] Comment on above: Performed By: #### 2 986909 ####KADEN Urinalysis Manual [address]mrclqoojp[address] [place] [address] Rubella IgG Lvlon 05-01-2017 Rubella IgG Lvl 50.8 (POS) Normal [facility] Comment on above: Result Comment: <10I U/ml NON REACTIVE: NOT [id number] IU/ml RUBELLA SPECIFIC AB PRESENT, EVALUATEFURTHER TO DETERMINE IMMUNE STATUS >15 IU/ml REACTIVE, IMMUNE Performed By: #### 2 269895 ####KADEN GlrCtts4526 [place] [address] Auto Diffon 04-22-2017 Basophils Auto #/vol (Bld) 0.1 E3/mcL Normal 0.0-0.2 [facility] Comment on above: Order Comment: Order Added by Discern Expert. Performed By: #### 2 619462 ####KADEN Urinalysis Manual Ewfrpjzqop74[address] [place] [address] Basophils/100 WBC Auto (Bld) 0.6 % Normal 0.0-2.0 [facility] Comment on above: Order Comment: Order Added by Discern Expert. Performed By: #### 2 559828 ####KADEN Urinalysis Manual [address] [address] Eos Absolute 0.0 E3/mcL Normal 0.0-0.7 [facility] Comment on above: Order Comment: Order Added by Discern Expert. Performed By: #### 2 283584 ####KADEN Urinalysis Manual Dolxiyepif[address] [place] [address] Eosinophils/100 leukocytes 0.2 % Normal 0.0-11.0 [facility] Comment on above: Order Comment: Order Added by Discern Expert. Performed By: #### 2 651394 ####KADEN Urinalysis Manual Piejvzmdyt[address] [place] [address] Lymphocytes 1.5 E3/mcL Normal 1.2-3.4 [facility] Comment on above: Order Comment: Order Added by Discern Expert. Performed By: #### 2 674516 ####KADEN Urinalysis Manual Vhtaphimwe4839[address] [place] [address] Lymphocytes/100 leukocytes 10.8 % Low 20.0-55.0 [facility] Comment on above: Order Comment: Order Added by Discern Expert. Performed By: #### 2 572765 ####KADEN Urinalysis Manual Ecdwolckpl1593[address] [place] [address] Forrest Absolute 0.6 E3/mcL Normal 0.0-0.7 [facility] Comment on above: Order Comment: Order Added by Discern Expert. Performed By: #### 2 617835 ####KADEN Urinalysis Manual Yhdpsutxgj[address]63[address] [place] [address] Monocytes/100 leukocytes 4.4 % Normal 0.0-10.0 [facility] Comment on above: Order Comment: Order Added by Discern Expert. Performed By: #### 2 218605 ####KADEN Urinalysis Manual Pdgeogiifu627[address] [place] [address] Neutro Absolute 11.3 E3/mcL High 1.4-6.5 [facility] Comment on above: Order Comment: Order Added by Discern Expert. Performed By: #### 2 104922 ####KADEN Urinalysis Manual Ogfdrywegh[address] [place] [address] Neutro Auto 84.0 % High 37.0-75.0 [facility] Comment on above: Order Comment: Order Added by Discern Expert. Performed By: #### 2 319024 ####KADEN Urinalysis Manual Tfmkhzggme[address] [place] [address] BMPon 04-22-2017 BUN/Creatinine Ratio Unable to calc Normal 5.4-30.0 [facility] Comment on above: Performed By: #### 2 380153 ####KADEN Urinalysis Manual Dhbxovmqvh[address] [place] [address] Creatinine mg/dL Low 0.6-1.3 [facility] Comment on above: Performed By: #### 2 103980 ####KADEN Urinalysis Manual Oyujycmega3[address] [place] [address] Urea nitrogen 7 mg/dL Normal 7-18 [facility] Comment on above: Performed By: #### 2 486953 ####KADEN Urinalysis Manual Bnegfgedvb9094 [place] [address] Calcium 9.6 mg/dL Normal 8.4-10.2 [facility] Comment on above: Performed By: #### 2 589961 ####KADEN Urinalysis Manual Emekaushep0143 [place] [address] Chloride 103 mmol/L Normal 98-107 [facility] Comment on above: Performed By: #### 2 191009 ####KADEN Urinalysis Manual Lulngtfsdq5149[address] [place] [address] CO2 21.7 mmol/L Low 24.0-30.0 [facility] Comment on above: Performed By: #### 2 605434 ####KADEN Urinalysis Manual Qbtemyujwn[address] [place] [address] Glucose mass conc 89 mg/dL Normal 70-99 [facility] Comment on above: Performed By: #### 2 432786 ####KADEN Urinalysis Manual Clhydcfmjs5949[address] [place] [address] Potassium molar conc 3.6 mmol/L Normal 3.5-5.1 [facility] Comment on above: Performed By: #### 2 906002 ####KADEN Urinalysis Manual Dxkorhtxku[address] [place] [address] Sodium 136 mmol/L Normal 136-145 [facility] Comment on above: Performed By: #### 2 011579 ####KADEN Urinalysis Manual Hyqkmqceni3736[address] [place] [address] CBC w/ Auto Diffon 7 Erythrocyte distribution width Auto Ratio (RBC) 14.8 % High 11.5-14.5 [facility] Comment on above: Performed By: #### 2 658935 ####KADEN Urinalysis Manual Cwivimbowi11[address] [place] [address] Erythrocytes (RBC) 4.96 E6/mcL Normal 3.90-5.40 [facility] Comment on above: Performed By: #### 2 390044 ####KADEN Urinalysis Manual Gtjwqvamae4661 [place] [address] Hematocrit (HCT) 40.9 % Normal 36.0-48.0 [facility] Comment on above: Performed By: #### 2 198027 ####KADEN Urinalysis Manual Pwbrurnjnl12[address] [place] [address] Hemoglobin mass conc (Bld) 13.5 g/dL Normal 12.0-16.0 [facility] Comment on above: Performed By: #### 2 579923 ####KADEN Urinalysis Manual Argwwifzwc[address] [place] [address] MCH 27.2 pg Normal 27.0-31.0 [facility] Comment on above: Performed By: #### 2 664942 ####KADEN Urinalysis Manual Ltkhbfzlqo3682[address] [place] [address] MCHC mass conc (RBC) 33.0 g/dL Normal 33.0-37.0 [facility] Comment on above: Performed By: #### 2 633103 ####KADEN Urinalysis Manual Oqfluzqkvq2418[address] [place] [address] MCV 82.4 fL Normal 78.0-100.0 [facility] Comment on above: Performed By: #### 2 947217 ####KADEN Urinalysis Manual Znbzliwrhz[address] [place] [address] Platelet mean volume (PMV) 8.0 fL Normal 7.4-11.0 [facility] Comment on above: Performed By: #### 2 841639 ####KADEN Urinalysis Manual Kviankij[address] [place] [address] Platelets 237 E3/mcL Normal 130-400 [facility] Comment on above: Performed By: #### 2 813074 ####KADEN Urinalysis Manual Koubgifuil[address] [place] [address] WBC (Leukocytes) 13.5 E3/mcL High 3.6-11.0 [facility] Comment on above: Performed By: #### 2 021837 ####KADEN Urinalysis Manual Lyieybygii7[address] [place] [address] UA Completeon 04-22-2017 UA Blood Negative Normal Negative [facility] Comment on above: Performed By: #### 2 232649 ####KADEN Urinalysis Manual Texfhmidvy6277 [place] [address] UA Ascorbic Acid 40 mg/dL High <=19 [facility] Comment on above: Performed By: #### 2 813860 ####KADEN Urinalysis Manual Gpbdptztuv0647[address] [place] [address] UA Bacteria 3+ /HPF Abnormal None [facility] Comment on above: Performed By: #### 2 503627 ####KADEN Urinalysis Manual Pcrvrwfpxq7835[address] [place] [address] UA Clarity SltCloudy Abnormal Clear [facility] Comment on above: Performed By: #### 2 443474 ####KADEN Urinalysis Manual Ricyevdwso1448[address] [place] [address] UA Leuk Est Negative Normal Negative [facility] Comment on above: Performed By: #### 2 969519 ####KADEN Urinalysis Manual Qqspgnkpfu[address] [place] [address] UA Mucous Few Abnormal Trace [facility] Comment on above: Performed By: #### 2 747479 ####KADEN Urinalysis Manual Nizqfwnbtp[address] [place] [address] UA Nitrite Negative Normal Negative [facility] Comment on above: Performed By: #### 2 150200 ####KADEN Urinalysis Manual Lwggvdmnlk[address] [place] [address] UA pH 8.0 Normal 4.6-8.0 [facility] Comment on above: Performed By: #### 2 933404 ####KADEN Urinalysis Manual Nzwxteywei8545[address] [place] [address] UA Protein Negative Normal Negative [facility] Comment on above: Performed By: #### 2 501768 ####KADEN Urinalysis Manual Ywqsevgbwa9[address] [place] [address] UA Spec Grav 1.012 Normal 1.003-1.03 0 [facility] Comment on above: Performed By: #### 2 749874 ####KADEN Urinalysis Manual Grejojoxfr6312[address] [place] [address] UA Squam Epithelial 0-5 Normal 0-5 [facility] Comment on above: Performed By: #### 2 704390 ####KADEN Urinalysis Manual [address]iy[address] [place] [address] UA Urobilinogen Negative Normal [facility] Comment on above: Performed By: #### 2 495958 ####KADEN Urinalysis Manual Bjiynfujed5739 [place] [address] UA WBC 0-5 Normal 0-5 [facility] Comment on above: Performed By: #### 2 156681 ####KADEN Urinalysis Manual Ajtutctpht3755 [place] [address] Urine, color Yellow Normal Yellow [facility] Comment on above: Performed By: #### 2 838250 ####KADEN Urinalysis Manual Ytxbmurxik[address] [place] [address] Urine, glucose Negative Normal Negative [facility] Comment on above: Performed By: #### 2 973383 ####KADEN Urinalysis Manual Ltdaezwlqa[address] [place] [address] Urine, ketones presence 1+ Abnormal Negative [facility] Comment on above: Performed By: #### 2 509144 ####KADEN Urinalysis Manual Efqpcqexqu[address] [place] [address] Urine, urobilinogen Negative Normal Negative [facility] Comment on above: Performed By: #### 2 391955 ####KADEN Urinalysis Manual Ibvvjhnk[address] [place] [address] eGFRon 04-22-2017 eGFR AA >60 Normal [facility] Comment on above: Order Comment: Order added by Discern Expert. Performed By: #### 2 870479 ####KADEN Urinalysis Manual Dviddjaidw1833 [place] [address] eGFR (non-black) mL/min/{1.73_m2} Normal [facility] Comment on above: Order Comment: Order added by Discern Expert. Performed By: #### 2 999924 ####KADEN Urinalysis Manual Wqtnmmkntq[address] [place] [address] C Urineon 04-20-2017 C Urine Final Report: Normal skin alonso isolated Normal [facility] Comment on above: Performed By: #### 2 056330 ####KADEN Urinalysis Manual Hcpuqzbxxx0688 [place] [address] BMPon 04-18-2017 BUN/Creatinine Ratio 15.0 ratio Normal 5.4-30.0 [facility] Comment on above: Performed By: #### 2 143103 ####KADENMorelia BairdKbsKlqu4595 [place] [address] Creatinine 0.6 mg/dL Normal 0.6-1.3 [facility] Comment on above: Performed By: #### 2 217244 ####KADENMorelia BairdDvxWulh2173 [place] [address] Urea nitrogen 9 mg/dL Normal 7-18 [facility] Comment on above: Performed By: #### 2 925100 ####KADENMorelia BairdIjdHyah3136 [place] [address] Calcium 9.6 mg/dL Normal 8.4-10.2 [facility] Comment on above: Performed By: #### 2 726968 ####KADENMorelia BairdMxvMvjm7318 [place] [address] Chloride 102 mmol/L Normal 98-107 [facility] Comment on above: Performed By: #### 2 365059 ####KADENMorelia BairdEvoIfop8287 [place] [address] CO2 23.3 mmol/L Low 24.0-30.0 [facility] Comment on above: Performed By: #### 2 224638 ####KADENMorelia BairdXoiEnhg4144 [place] [address] Glucose mass conc 93 mg/dL Normal 70-99 [facility] Comment on above: Performed By: #### 2 008711 ####KADENMorelia BairdAgpHrzz4204 [place] [address] Potassium molar conc 3.5 mmol/L Normal 3.5-5.1 [facility] Comment on above: Performed By: #### 2 591758 ####KADENMorelia BairdHcxTyvc2637 [place] [address] Sodium 136 mmol/L Normal 136-145 [facility] Comment on above: Performed By: #### 2 998145 ####KADENMorelia BairdFyhRmgw9279 [place] [address] UA Completeon 04-18-2017 UA Blood Negative Normal Negative [facility] Comment on above: Performed By: #### 2 909706 ####KADEN Urinalysis Manual H[address]qdswqcqb[address] [place] [address] UA Amorph Chastity 2+ /HPF Abnormal None [facility] Comment on above: Performed By: #### 2 703482 ####KADEN Urinalysis Manual Dwhucgxxdv7968[address] [place] [address] UA Ascorbic Acid 40 mg/dL High <=19 [facility] Comment on above: Performed By: #### 2 374600 ####KADEN Urinalysis Manual Towcijiuqs[address] [place] [address] UA Clarity Cloudy Abnormal Clear [facility] Comment on above: Performed By: #### 2 290475 ####KADEN Urinalysis Manual Xsboidrzbd1238[address] [place] [address] UA Leuk Est Negative Normal Negative [facility] Comment on above: Performed By: #### 2 921160 ####KADEN Urinalysis Manual Kplakaefht77[address] [place] [address] UA Mucous Trace Abnormal Trace [facility] Comment on above: Performed By: #### 2 702598 ####KADEN Urinalysis Manual Qojdtaltbf9985[address] [place] [address] UA Nitrite Negative Normal Negative [facility] Comment on above: Performed By: #### 2 390954 ####KADEN Urinalysis Manual Ogkvugdhbf1346[address] [place] [address] UA pH 7.0 Normal 4.6-8.0 [facility] Comment on above: Performed By: #### 2 117814 ####KADEN Urinalysis Manual Gzbutzzchs[address] [place] [address] UA Protein Negative Normal Negative [facility] Comment on above: Performed By: #### 2 911888 ####KADEN Urinalysis Manual Dgnfaoduov[address] [place] [address] UA Spec Grav 1.018 Normal 1.003-1.03 0 [facility] Comment on above: Performed By: #### 2 902585 ####KADEN Urinalysis Manual Zpizpmsvsn6[address] [place] [address] UA Squam Epithelial 0-5 Normal 0-5 [facility] Comment on above: Performed By: #### 2 327890 ####KADEN Urinalysis Manual Ellypreugp3[address] [place] [address] UA Urobilinogen Negative Normal [facility] Comment on above: Performed By: #### 2 426500 ####KADEN Urinalysis Manual Rowqdabqui2938[address] [place] [address] Urine, color Yellow Normal Yellow [facility] Comment on above: Performed By: #### 2 329503 ####KADEN Urinalysis Manual Mdubueckwu8379[address] [place] [address] Urine, glucose Negative Normal Negative [facility] Comment on above: Performed By: #### 2 275999 ####KADEN Urinalysis Manual Bibakgdgwy2764[address] [place] [address] Urine, ketones presence 2+ Abnormal Negative [facility] Comment on above: Performed By: #### 2 499834 ####KADEN Urinalysis Manual Hxnodwsmeh5[address] [place] [address] Urine, urobilinogen Negative Normal Negative [facility] Comment on above: Performed By: #### 2 685114 ####KADEN Urinalysis Manual Kphzcdztci84[address] [place] [address] eGFRon 04-18-2017 eGFR (non-black) mL/min/{1.73_m2} Normal [facility] Comment on above: Order Comment: Order added by Discern Expert. Performed By: #### 1 4657419 ####KADEN ScwXkoz9729 [place] [address] eGFR AA >60 Normal [facility] Comment on above: Order Comment: Order added by Discern Expert. Performed By: #### 1 2421116 ####KADENMorelia BairdRgaPgux6287 [place] [address] Auto Diffon 04-11-2017 Basophils Auto #/vol (Bld) 0.1 E3/mcL Normal 0.0-0.2 [facility] Comment on above: Order Comment: Order Added by Discern Expert. Performed By: #### 2 227951 ####KADEN BairdHhpIhgc7087 [place] [address] Basophils/100 WBC Auto (Bld) 0.7 % Normal 0.0-2.0 [facility] Comment on above: Order Comment: Order Added by Discern Expert. Performed By: #### 2 935337 ####KADEN BairdQjdHroo1672 [place] [address] Eos Absolute 0.0 E3/mcL Normal 0.0-0.7 [facility] Comment on above: Order Comment: Order Added by Discern Expert. Performed By: #### 2 000697 ####KADEN DxsFdzm8153 [place] [address] Eosinophils/100 leukocytes 0.1 % Normal 0.0-11.0 [facility] Comment on above: Order Comment: Order Added by Discern Expert. Performed By: #### 2 003733 ####KADEN BolXbxx8258 [place] [address] Lymphocytes 1.5 E3/mcL Normal 1.2-3.4 [facility] Comment on above: Order Comment: Order Added by Discern Expert. Performed By: #### 2 890230 ####KADEN VyoTxlp7552 [place] [address] Lymphocytes/100 leukocytes 17.2 % Low 20.0-55.0 [facility] Comment on above: Order Comment: Order Added by Discern Expert. Performed By: #### 2 734755 ####KADEN MjbIogl7721 [place] [address] Forrest Absolute 0.6 E3/mcL Normal 0.0-0.7 [facility] Comment on above: Order Comment: Order Added by Discern Expert. Performed By: #### 2 442075 ####KADEN MrhUjrk0299 [place] [address] Monocytes/100 leukocytes 6.6 % Normal 0.0-10.0 [facility] Comment on above: Order Comment: Order Added by Discern Expert. Performed By: #### 2 854254 ####KADEN ArbNmaf3090 [place] [address] Neutro Absolute 6.7 E3/mcL High 1.4-6.5 [facility] Comment on above: Order Comment: Order Added by Discern Expert. Performed By: #### 2 778892 ####KADEN Luceroo1025 [place] [address] Neutro Auto 75.4 % High 37.0-75.0 [facility] Comment on above: Order Comment: Order Added by Discern Expert. Performed By: #### 2 691451 ####KADEN Luceroo1025 [place] [address] BMPon 04-11-2017 BUN/Creatinine Ratio 12.9 ratio Normal 5.4-30.0 [facility] Comment on above: Performed By: #### 2 595323 ####KADEN Bai1025 [place] [address] Creatinine 0.7 mg/dL Normal 0.6-1.3 [facility] Comment on above: Performed By: #### 2 984820 ####KADEN Bai1025 [place] [address] Urea nitrogen 9 mg/dL Normal 7-18 [facility] Comment on above: Performed By: #### 2 255423 ####KADEN BairdAgoOdqx6564 [place] [address] Calcium 9.5 mg/dL Normal 8.4-10.2 [facility] Comment on above: Performed By: #### 2 738194 ####KADEN BairdJygIhzb6678 [place] [address] Chloride 105 mmol/L Normal 98-107 [facility] Comment on above: Performed By: #### 2 367317 ####KADEN BairdXpgKtxk1108 [place] [address] CO2 22.5 mmol/L Low 24.0-30.0 [facility] Comment on above: Performed By: #### 2 235424 ####KADEN BairdUyrKjcd6541 [place] [address] Glucose mass conc 92 mg/dL Normal 70-99 [facility] Comment on above: Performed By: #### 2 618762 ####KADEN BairdQevHglg6362 [place] [address] Potassium molar conc 3.6 mmol/L Normal 3.5-5.1 [facility] Comment on above: Performed By: #### 2 349448 ####KADENMorelia BairdHkqPxio6240 [place] [address] Sodium 137 mmol/L Normal 136-145 [facility] Comment on above: Performed By: #### 2 547476 ####KADEN PqfYxvx5886 [place] [address] BhCG Quanton 04-11-2017 Beta hCG Qnt 8564.0 mIU/m Normal [facility] Comment on above: Result Comment: FEMA LE (NON-) & MALE <3 BORDERLINE 3 - 5 SUGGEST REPEAT TESTING FEMALE () 1 D - 1 WK 5 - 50 1 - 2 WK 50 - 500 2 - 3 WK 100 - 5000 3 - 4 WK 500 - 44258 4 - 5 WK 1000 - 57759 5 - 6 WK 44234 - 706551 6 - 8 WK 53582 - 001427 2 - 3 [place] [address] - 442432 Performed By: #### 2 500781 ####KADENMorelia BairdZrdOrsx7142 [place] [address] CBC w/ Auto Diffon 7 Erythrocyte distribution width Auto Ratio (RBC) 13.9 % Normal 11.5-14.5 [facility] Comment on above: Performed By: #### 2 621888 ####KADENMorelia BairdSbfLzpt2981 [place] [address] Erythrocytes (RBC) 4.63 E6/mcL Normal 3.90-5.40 [facility] Comment on above: Performed By: #### 2 539107 ####KADENMorelia BairdCohAeqs6421 [place] [address] Hematocrit (HCT) 38.2 % Normal 36.0-48.0 [facility] Comment on above: Performed By: #### 2 816253 ####KADENMorelia BairdRehQwqk6981 [place] [address] Hemoglobin mass conc (Bld) 12.6 g/dL Normal 12.0-16.0 [facility] Comment on above: Performed By: #### 2 139687 ####KADENMorelia BairdYaxSugv9958 [place] [address] MCH 27.2 pg Normal 27.0-31.0 [facility] Comment on above: Performed By: #### 2 221801 ####KADEN BairdYasFbgo8351 [place] [address] MCHC mass conc (RBC) 33.0 g/dL Normal 33.0-37.0 [facility] Comment on above: Performed By: #### 2 245724 ####KADEN BairdKolAopv8851 [place] [address] MCV 82.6 fL Normal 78.0-100.0 [facility] Comment on above: Performed By: #### 2 645753 ####KADEN BairdAexMhds1648 [place] [address] Platelet mean volume (PMV) 8.0 fL Normal 7.4-11.0 [facility] Comment on above: Performed By: #### 2 135124 ####KADEN Luceroo1025 [place] [address] Platelets 233 E3/mcL Normal 130-400 [facility] Comment on above: Performed By: #### 2 766099 ####KADEN BairdOsuGbkn6426 [place] [address] WBC (Leukocytes) 9.0 E3/mcL Normal 3.6-11.0 [facility] Comment on above: Performed By: #### 2 991168 ####KADEN BairdInmPrtj9112 [place] [address] UA Completeon 04-11-2017 UA Blood Negative Normal Negative [facility] [facility] Comment on above: Result Comment: High concentration of Ascorbic Acid present in urine. This may cause False Negative Occ Blood. Review microscopic results and patient's clinical symptoms. Performed By: #### 8 [id number] ####KADEN Urinalysis Automated Ukaoxqphzi4040 [place] [address] UA Amorph Chastity 1+ /HPF Abnormal None [facility] Comment on above: Performed By: #### 8 [id number] ####KADEN Urinalysis Automated Vbzcvnyxul2750 [place] [id number] UA Ascorbic Acid 40 mg/dL High <=19 [facility] Comment on above: Performed By: #### 8 [id number] ####KADEN Urinalysis Automated Ikhctxmdzp6767 [place] [address] UA Bacteria Trace Abnormal None [facility] Comment on above: Performed By: #### 8 [id number] ####KADEN Urinalysis Automated Zcsysssacj4388 [place] [id number] UA Clarity Cloudy Abnormal Clear [facility] Comment on above: Performed By: #### 8 [id number] ####KADEN Urinalysis Automated Lxbhxnykkh3630 [place] [address] UA Leuk Est Negative Normal Negative [facility] Comment on above: Performed By: #### 8 [id number] ####KADEN Urinalysis Automated Nsshlpenen1284 [place] [address] UA Mucous Few Abnormal Trace [facility] Comment on above: Performed By: #### 8 [id number] ####KADEN Urinalysis Automated [address] [place] [address] UA Nitrite Negative Normal Negative [facility] Comment on above: Performed By: #### 8 [id number] ####KADEN Urinalysis Automated [address] [place] [address] UA pH 7.0 Normal 4.6-8.0 [facility] Comment on above: Performed By: #### 8 [id number] ####KADEN Urinalysis Automated [address] [place] [address] UA Protein Negative Normal Negative [facility] Comment on above: Performed By: #### 8 [id number] ####KADEN Urinalysis Automated Dsoidrmkgc2497 [place] [address] UA Spec Grav 1.025 Normal 1.003-1.03 0 [facility] Comment on above: Performed By: #### 8 [id number] ####KADEN Urinalysis Automated Qrquotbrzg6942 [place] [address] UA Squam Epithelial 5-10 Abnormal 0-5 [facility] Comment on above: Performed By: #### 8 [id number] ####KADEN Urinalysis Automated Satiggdsnz9176 [place] [address] UA Urobilinogen 2.0 mg/dL Abnormal [facility] Comment on above: Performed By: #### 8 [id number] ####KADEN Urinalysis Automated Wjbrxfvgdx5223 [place] [address] Urine, color Yellow Normal Yellow [facility] Comment on above: Performed By: #### 8 [id number] ####KADEN Urinalysis Automated Cubswdpjie6505 [place] [address] Urine, erythrocytes 0-3 Normal 0-3 [facility] Comment on above: Performed By: #### 8 [id number] ####KADEN Urinalysis Automated Guzrkrwkya3551 [place] [address] Urine, glucose Negative Normal Negative [facility] Comment on above: Performed By: #### 8 [id number] ####KADEN Urinalysis Automated [address] [place] [address] Urine, ketones presence 2+ Abnormal Negative [facility] Comment on above: Performed By: #### 8 [id number] ####KADEN Urinalysis Automated [address] [place] [address] Urine, urobilinogen Negative Normal Negative [facility] Comment on above: Performed By: #### 8 [id number] ####KADEN Urinalysis Automated [address]yl[address] [place] [address] eGFRon 04-11-2017 eGFR (non-black) mL/min/{1.73_m2} Normal [facility] Comment on above: Order Comment: Order added by Discern Expert. Performed By: #### 1 [id number] ####KADEN TudOluy7600 [place] [address] eGFR AA >60 Normal [facility] Comment on above: Order Comment: Order added by Discern Expert. Performed By: #### 1 [id number] ####KADEN BfoZtja1650 [place] [address] U BhCG Qlton 03-20-2017 HCG.beta subunit Qn Negative Normal Neg [facility] Comment on above: Performed By: #### 2 [id number] ####KADEN Urinalysis Manual [address]ltb54[address] [place] [id number] UA Completeon 03-20-2017 UA Blood Negative Normal Negative [facility] Comment on above: Performed By: #### 8 [id number] ####KADEN Urinalysis Automated Jblgftwrye5811 [place] [address] UA Amorph Chastity 1+ /HPF Abnormal None [facility] Comment on above: Performed By: #### 8 [id number] ####KADEN Urinalysis Automated Ztkvayjczh9813 [place] [address] UA Bacteria 2+ /HPF Abnormal None [facility] Comment on above: Performed By: #### 8 [id number] ####KADEN Urinalysis Automated Ejfdrzqxqv0378 [place] [address] UA Clarity Cloudy Abnormal Clear [facility] Comment on above: Performed By: #### 8 [id number] ####KADEN Urinalysis Automated [address] [place] [address] UA Leuk Est 1+ Abnormal Negative [facility] Comment on above: Performed By: #### 8 [id number] ####KADEN Urinalysis Automated [address] [place] [address] UA Mucous Occasional Abnormal Trace [facility] Comment on above: Performed By: #### 8 [id number] ####KADEN Urinalysis Automated [address]qttv[address] [place] [address] UA Nitrite Negative Normal Negative [facility] Comment on above: Performed By: #### 8 [id number] ####KADEN Urinalysis Automated X[address] [place] [address] UA pH 6.0 Normal 4.6-8.0 [facility] Comment on above: Performed By: #### 8 [id number] ####KADEN Urinalysis Automated [address]fe[address] [place] [address] UA Protein 1+ Abnormal Negative [facility] Comment on above: Performed By: #### 8 [id number] ####KADEN Urinalysis Automated [address]qkra[address] [place] [address] UA Spec Grav 1.019 Normal 1.003-1.03 0 [facility] Comment on above: Performed By: #### 8 [id number] ####KADEN Urinalysis Automated [address] [place] [address] UA Squam Epithelial 5-10 Abnormal 0-5 [facility] Comment on above: Performed By: #### 8 [id number] ####KADEN Urinalysis Automated Hnmsoixbeg6340 [place] [address] UA Urobilinogen Negative Normal [facility] Comment on above: Performed By: #### 8 [id number] ####KADEN Urinalysis Automated Wmihjocrjg2680 [place] [address] UA WBC >50 Abnormal 0-5 [facility] Comment on above: Performed By: #### 8 [id number] ####KADEN Urinalysis Automated Jaxsjxoslc2948 [place] [address] Urine, color Yellow Normal Yellow [facility] Comment on above: Performed By: #### 8 [id number] ####KADEN Urinalysis Automated Gccwhwzrgt3175 [place] [address] Urine, erythrocytes 5-10 Abnormal 0-3 [facility] Comment on above: Performed By: #### 8 [id number] ####KADEN Urinalysis Automated Xwkvzsbwtt2601 [place] [address] Urine, glucose Negative Normal Negative [facility] Comment on above: Performed By: #### 8 [id number] ####KADEN Urinalysis Automated Fkntzxvmqv2048 [place] [address] Urine, ketones presence Negative Normal Negative [facility] Comment on above: Performed By: #### 8 [id number] ####KADEN Urinalysis Automated Udoltvukcd7408 [place] [address] Urine, urobilinogen Negative Normal Negative [facility] Comment on above: Performed By: #### 8 [id number] ####KADEN Urinalysis Automated Xxftjgdxpo4373 [place] [address] Vital Signs Date Time Vital Sign Value Performing Clinician Facility 07-18-2023 10:30-0500 Body mass index (BMI) [Ratio] 26.7 kg/m2 [employer] Work Phone: [facility] 07-18-2023 10:30-0500 Body weight 75.03 kg [employer] Work Phone: [facility] 07-18-2023 10:30-0500 Diastolic blood pressure 68 mm[Hg] [employer] Work Phone: [facility] 07-18-2023 10:30-0500 Systolic blood pressure 106 mm[Hg] Cuong Ortiz DO Work Phone: [facility] 02-11-2023 14:13-0400 Body height 165.1 cm PAZhao Wyatt Work Phone: [facility] 02-11-2023 14:13-0400 Body temperature 97.9 [degF] FERMIN-Ventura Wyatt Work Phone: [facility] 02-11-2023 14:13-0400 Body weight 70.55 kg FERMIN-Ventura Wyatt Work Phone: [facility] 02-11-2023 14:13-0400 Diastolic blood pressure 80 mm[Hg] FERMIN-Ventura Wyatt Work Phone: [facility] 02-11-2023 14:13-0400 Heart rate 60 /min SADAF Wyatt Work Phone: [facility] 02-11-2023 14:13-0400 Respiratory rate 15 /min SADAF Wyatt Work Phone: [facility] 02-11-2023 14:13-0400 SaO2% (BldA) [Mass fraction] 99 % SADAF Wyatt Work Phone: [facility] 02-11-2023 14:13-0400 Systolic blood pressure 134 mm[Hg] SADAF Wyatt Work Phone: [facility] 02-08-2023 12:36-0400 Body height 165.1 cm SADAF Wyatt Work Phone: [facility] 02-08-2023 12:36-0400 Body temperature 98.2 [degF] SADAF Wyatt Work Phone: [facility] 02-08-2023 12:36-0400 Body weight 72.57 kg SADAF Wyatt Work Phone: [facility] 02-08-2023 12:36-0400 Diastolic blood pressure 84 mm[Hg] PA-C Andie Wyatt Work Phone: [facility] 02-08-2023 12:36-0400 Heart rate 74 /min PA-C Adnie Wyatt Work Phone: [facility] 02-08-2023 12:36-0400 Respiratory rate 15 /min PA-C Andie Wyatt Work Phone: [facility] 02-08-2023 12:36-0400 SaO2% (BldA) [Mass fraction] 98 % PA-C Andie Wyatt Work Phone: [facility] 02-08-2023 12:36-0400 Systolic blood pressure 150 mm[Hg] PA-C Andie Wyatt Work Phone: [facility] 12-19-2022 14:43-0400 Body temperature 96.9 [degF] FERMIN-C Andie Wyatt Work Phone: [facility] 12-19-2022 14:43-0400 Diastolic blood pressure 74 mm[Hg] PA-C Andie Wyatt Work Phone: [facility] 12-19-2022 14:43-0400 Heart rate 59 /min FERMIN-C Andie Wyatt Work Phone: [facility] 12-19-2022 14:43-0400 Respiratory rate 18 /min PA-Ventura Wyatt Work Phone: [facility] 12-19-2022 14:43-0400 SaO2% (BldA) [Mass fraction] 100 % PA-C Andie Wyatt Work Phone: [facility] 12-19-2022 14:43-0400 Systolic blood pressure 115 mm[Hg] PA-C Andie Wyatt Work Phone: [facility] 12-19-2022 14:00-0400 Diastolic blood pressure 89 mm[Hg] PA-Ventura Wyatt Work Phone: [facility] 12-19-2022 14:00-0400 Heart rate 79 /min PA-C Andie Wyatt Work Phone: [facility] 12-19-2022 14:00-0400 Respiratory rate 16 /min PA-Ventura Wyatt Work Phone: [facility] 12-19-2022 14:00-0400 SaO2% (BldA) [Mass fraction] 99 % PA-Ventura Wyatt Work Phone: [facility] 12-19-2022 14:00-0400 Systolic blood pressure 150 mm[Hg] PA-C Andie Wyatt Work Phone: [facility] 12-19-2022 03:30-0400 Body height 165.1 cm PA-Ventura Wyatt Work Phone: [facility] 12-19-2022 03:30-0400 Body weight 72.2 kg PA-Ventura Wyatt Work Phone: [facility] 12-18-2022 23:07-0400 Body height 165.1 cm PA-Ventura Wyatt Work Phone: [facility] 12-18-2022 23:07-0400 Body weight 74.2 kg PA-Ventura Wyatt Work Phone: [facility] 12-18-2022 23:05-0400 Body temperature 98.5 [degF] FERMIN-Ventura Wyatt Work Phone: [facility] 08-20-2022 14:31-0500 Body height 165.1 cm PA-Ventura Wyatt Work Phone: [facility] 08-20-2022 14:31-0500 Body temperature 98.9 [degF] PA-C Andie Wyatt Work Phone: [facility] 08-20-2022 14:31-0500 Body weight 71.55 kg PA-Ventura Wyatt Work Phone: [facility] 08-20-2022 14:31-0500 Diastolic blood pressure 87 mm[Hg] PA-Ventura Wyatt Work Phone: [facility] 08-20-2022 14:31-0500 Heart rate 97 /min PAZhao Wyatt Work Phone: [facility] 08-20-2022 14:31-0500 Respiratory rate 18 /min PA-Ventura Wyatt Work Phone: [facility] 08-20-2022 14:31-0500 SaO2% (BldA) [Mass fraction] 98 % PA-Ventura Wyatt Work Phone: [facility] 08-20-2022 14:31-0500 Systolic blood pressure 135 mm[Hg] PA-Ventura Wyatt Work Phone: [facility] 02-08-2022 03:06-0400 Body weight 68.[address] CUONG ORTIZ . [facility] Comment on above: Performed By: #### AFPMAT #### [facility] [address] [place] [address] Dr. Juan Antonio Ibarra 02-05-2022 18:24-0400 Body height 165.1 cm PAZhao Wyatt Work Phone: [facility] 02-05-2022 18:24-0400 Body temperature 98.3 [degF] PAZhao Wyatt Work Phone: [facility] 02-05-2022 18:24-0400 Body weight 67.9 kg SADAF Wyatt Work Phone: [facility] 02-05-2022 18:24-0400 Diastolic blood pressure 68 mm[Hg] PA-Ventura Wyatt Work Phone: [facility] 02-05-2022 18:24-0400 Heart rate 92 /min SADAF Wyatt Work Phone: [facility] 02-05-2022 18:24-0400 Respiratory rate 18 /min PAZhao Wyatt Work Phone: [facility] 02-05-2022 18:24-0400 SaO2% (BldA) [Mass fraction] 99 % SADAF Wyatt Work Phone: [facility] 02-05-2022 18:24-0400 Systolic blood pressure 125 mm[Hg] SADAF Wyatt Work Phone: [facility] Encounters Encounter Date Encounter Type Care Provider Facility Start: 10-14-2023 End: 10-14-2023 ambulatory CUONG DIANA Not Available Start: 09-30-2023 End: 09-30-2023 ambulatory CUONG DIANA Not Available Start: 09-12-2023 End: 09-12-2023 ambulatory CUONG DIANA Not Available Start: 08-15-2023 End: 08-15-2023 ambulatory ANDIE WYATT [facility] Start: 08-15-2023 End: 08-15-2023 ambulatory CUONG DIANA Not Available Start: 07-22-2023 Documentation procedure Lucio HARPER Work Phone: [facility] Comment on above: Outgoing Ca ll [...] Start: 07-18-2023 End: 07-18-2023 ambulatory ANDIE [facility]ibodeaux [facility] Start: 07-03-2023 End: 07-03-2023 ambulatory CUONG R [facility] Start: 07-03-2023 End: 07-03-2023 Telemedicine consultation with patient Rosaura HARPER Work Phone: [facility] Comment on above: Family history of ge netic disorder (Primary Dx); Genetic testing; Fetus with trisomy 13, single gestation Start: 06-20-2023 End: 06-20-2023 ambulatory BARB KRAMER Not Available Start: 05-23-2023 End: 05-23-2023 ambulatory CUONG ORTIZ Not Available Start: 04-16-2023 ambulatory Cesar Clayton acility:[facility] Start: 02-11-2023 End: 02-11-2023 Emergency department patient visit Johnson Annie Facility:[facility] Start: 02-11-2023 End: 02-11-2023 Emergency department patient visit SADAF Wyatt Work Phone: [facility] Work Phone: Start: 02-08-2023 End: 02-08-2023 Emergency department patient visit Elle Rhodes Facility:[facility] Start: 02-08-2023 End: 02-08-2023 Emergency department patient visit SADAF Wyatt Work Phone: [facility] Work Phone: Start: 12-19-2022 End: 12-19-2022 ambulatory Arden Orozco Facility:[facility] Start: 12-19-2022 End: 12-19-2022 Evaluation and management of inpatient SADAF Wyatt Work Phone: [facility] Work Phone: Start: 12-19-2022 End: 12-19-2022 observation encounter SADAF Wyatt Work Phone: [facility] Work Phone: Start: 10-24-2022 End: 10-24-[address] CUONG ORTIZ . Facility: Start: 10-23-2022 Registered Recurring SADAF Wyatt Work Phone: [facility] Start: 08-20-2022 End: 08-20-2022 Emergency department patient visit Elle Rhodes Facility:[facility] Start: 08-20-2022 End: 08-20-2022 Emergency department patient visit SADAF Wyatt Work Phone: [facility] Work Phone: Start: 07-23-[address] CUONG ORTIZ . Facili ty:[facility] Start: 07-09-2022 End: 07-09-[address] CUONG ORTIZ . Facility:[facility] Start: 07-05-2022 End: 07-07-2022 Evaluation and management of inpatient DR CUONG ORTIZ . Facility:[facility] Start: 07-02-2022 End: 07-02-2022 [facility] Facility: Start: 06-28-2022 End: 06-28-[address] CUONG ORTIZ . Facility: Start: 06-21-2022 End: 06-21-2022 [facility] Facility:[facility] Start: 06-16-2022 End: [...] ORTIZ . Facility:[facility] Start: 05-24-2022 End: 05-24-2022 [facility] Facility:[facility] Start: 04-04-2022 End: [...] visit SADAF Wyatt Work Phone: [facility] Start: 12-26-2021 End: 12-27-[address] CUONG ORTIZ . Facility:[facility] Start: 12-07-2021 End: 12-08-[address] CUONG ORTIZ . Facility: Start: 12-27-2017 End: 12-27-2017 Patient encounter Christian Ivan Facility:[facility] Start: 12-12-2017 End: 12-12-2017 Emergency department patient visit Luke Barbosa Facility:[facility] Start: 12-12-2017 Patient encounter Facil ity:[id number] Start: 12-07-2017 Evaluation and management of inpatient CLARA JAMA Facility:[facility] Start: 12-03-2017 Evaluation and management of inpatient CLARA JAMA Facility:[facility] Start: 12-03-2017 Patient encounter procedure CLARA JAMA Facility:[facility] Start: 12-02-2017 Evaluation and management of inpatient CLARA JAMA Facility:[facility] Start: 11-30-2017 End: 12-02-2017 Evaluation and management of inpatient CLARA OLIVIA EVITA [facility] Start: 11-30-2017 End: 11-30-2017 Patient encounter Salomon Nguyen Facility:[facility] Start: 11-30-2017 Patient encounter Facil ity:[id number] Start: 11-28-2017 End: 11-28-2017 Patient encounter CLARAVASQUEZ DERASE [facility] Start: 11-21-2017 End: 11-21-2017 Patient encounter OKSANA MASON [facility] Start: 11-21-2017 End: 11-21-2017 Patient encounter Juanita Cole Facility:[facility] Start: 11-20-2017 Patient encounter Facil ity:[id number] Start: 11-17-2017 End: 11-17-2017 Patient encounter Christian A Shekhar Facility:[facility] Start: 11-16-2017 Patient encounter Quyen barbozay:[id number] Start: 11-07-2017 End: 11-07-2017 Patient encounter OKSANA AMADO [facility] Start: 10-31-2017 End: 10-31-2017 Patient encounter CLARA JAMA [facility] Start: 10-24-2017 End: 10-24-2017 Patient encounter MARCO ANTONIO Bertin ANTONIO [facility] Start: 10-16-2017 End: 10-16-2017 Patient encounter Christian A [place] Facility:[facility] Start: 10-08-2017 End: 10-08-2017 Patient encounter [facility] Start: 10-08-2017 End: 10-08-2017 Patient encounter OKSANA AMADO [facility] Start: 10-01-2017 End: 10-02-2017 Patient encounter Christian A [place] Facility:[facility] Start: 09-10-2017 End: 09-11-2017 Patient encounter LUIS DANIEL TRAMMELL [facility] Start: 09-10-2017 End: 09-10-2017 Patient encounter KRIS Yola HOYT [facility] Start: 09-10-2017 End: 09-10-2017 Patient encounter CLARA JAMA [facility] Start: 09-03-2017 End: 09-04-2017 Patient encounter Christian A [place] Facility:[facility] Start: 08-28-2017 Ambulatory NAGA [facility] Start: 08-13-2017 End: 08-14-2017 Patient encounter CLARA JAMA [facility] Start: 08-13-2017 End: 08-13-2017 Patient encounter MEREDITH JIGNA [facility] Start: 08-13-2017 End: 08-13-2017 Patient encounter [facility] Start: 08-10-2017 End: 08-10-2017 Emergency department patient visit Luke Barobsa Facility:[facility] Start: 08-06-2017 End: 08-07-2017 Patient encounter Christian A [place] Facility:[facility] Start: 07-23-2017 End: 07-24-2017 Patient encounter Christian Ivan Facility:[facility] Start: 07-18-2017 End: 07-18-2017 Patient encounter CLARA JAMA [facility] Start: 07-09-2017 End: 07-10-2017 Patient encounter Christian Ivan Facility:[facility] Start: 06-25-2017 End: 06-26-2017 Patient encounter Christian Ivan Facility:[facility] Start: 06-12-2017 End: 06-12-2017 Patient encounter Christianshoaib Ivan Facility:[facility] Start: 05-14-2017 End: 05-15-2017 Patient encounter Christian Ivan Facility:[facility] Start: 05-01-2017 End: 05-02-2017 Patient encounter Salomon Blantonman Facility:[facility] Start: 04-23-2017 End: 04-23-2017 Patient encounter Yasmin Evans Facility:[facility] Start: 04-22-2017 End: 04-22-2017 Emergency department patient visit Luke Ochoaer Facility:[facility] Start: 04-18-2017 End: 04-18-2017 Emergency department patient visit Luke Barbosa Facility:[facility] Start: 04-16-2017 End: 04-17-2017 Patient encounter Gamaliel Savage Facility:[facility] Start: 04-16-2017 End: 04-17-2017 Patient encounter Christian Ivan Facility:[facility] Start: 04-11-2017 End: 04-11-2017 Emergency department patient visit Nodr No Doctor Assigned Facility:[facility] Start: 03-26-2017 End: 03-27-2017 Patient encounter Luke Barbosa Facility:[facility] Start: 03-20-2017 End: 03-20-2017 Emergency department patient visit Nodr No Doctor Assigned Facility:[facility] Start: 03-01-2017 End: 03-01-2017 Emergency department patient visit Nodr No Doctor Assigned Facility:[facility] Procedures Date Procedure Procedure Detail [...] on above: Result Comment: PERF ORMED BY: [facility] [address] [place] [address] PATHOLOGIST DIRECTOR DIGITAL ADVERTISING MALVIN MEDLEY M.D. Start: 12-19-2022 X-ray of [...] Adult depression scr eening assessment Rosaura Renee [facility] Work Phone: Start: 11-30-2017 Antibody screen SHAINA JAMA Comment on above: Performed By: #### T &S #### [facility] [address] [place] [address] Aerobic microbial culture FERMIN Wyatt Work Phone: Investigation of transfusion reaction SADAF Wyatt Work Phone: Plan of Treatment Date Care Activity Detail Author Start: 12-18-2032 DTaP,Tdap and Td Vaccines (10 - Td or Tdap) DTaP,Tdap and Td Vaccines (10 - Td or Tdap) [facility] Start: 09-11-2023 Adult BMI Screening Adult BMI Screening [facility] Start: 09-11-2023 Tobacco Screening Tobacco Screening [facility] Start: 08-15-2023 End: 08-15-2023 Patient encounter procedure 08/15/2023 2:15 PM EST Appointment [facility] [place] [address] [facility] [address] [place] [address] [facility] [place] Start: 08-15-2023 End: 08-15-2023 Patient encounter procedure 08/15/2023 9:10 AM EST Routine [facility] [address] [place] [id number] Cuong Ortiz, DO [address] [place] [address] [facility] Start: 07-18-2023 End: 07-18-2023 Patient encounter procedure 07/18/2023 8:00 AM EST Appointment [facility] [place] [address] [facility] [address] [place] [address] [facility] [place] Start: 05-02-2023 Depression Screening Depression Screening [facility] Start: 02-15-2023 COVID-19 Vaccine ( season) COVID-19 Vaccine () [facility] Start: 02-15-2023 Influenza vaccination [facility] Start: 12-19-2022 Bacteria identified in Urine by Culture Urine Culture [facility] Start: 12-19-2022 [facility] Start: 12-19-2022 CT of head without contrast CT head/brain wo con [facility] Start: 12-19-2022 CT Unspecified body region WO contrast [facility] Start: 12-19-2022 Consultation [facility] Start: 12-19-2022 Hospital admission [facility] Start: 12-19-2022 X-ray of left foot XR foot LT 2V [facility] Start: 12-19-2022 XR Foot - left 2 Views [facility] Start: 12-18-2022 Computed tomography of thoracic spine without contrast CT thoracic spine wo [facility] Start: 12-18-2022 CT cervical spine without contrast CT cervical spine wo [facility] Start: 12-18-2022 CT Cervical spine WO contrast [facility] Start: 12-18-2022 CT Lumbar spine WO contrast [facility] Start: 12-18-2022 CT of head without contrast CT head/brain wo con [facility] Start: 12-18-2022 CT of lumbar spine without contrast CT lumbar spine wo [facility] Start: 12-18-2022 CT Thoracic spine WO contrast [facility] Start: 12-18-2022 CT Unspecified body region WO contrast [facility] Start: 12-18-2022 Pelvis X-ray XR pelvis 1-2V [facility] Start: 12-18-2022 Plain chest X-ray XR chest 1V portable [facility] Start: 12-18-2022 X-ray of both knees XR knee BI 2V [facility] Start: 12-18-2022 XR Chest Single view [facility] Start: 12-18-2022 XR Knee - bilateral 2 Views [facility] Start: 12-18-2022 XR Pelvis 1 or 2 Views [facility] Start: 2022 Screening for malignant neoplasm of cervix [facility] Start: 02-05-2022 [facility] Work Phone: Start: 2013 Screening for malignant neoplasm of cervix [facility] Start: 2010 Adult BMI Follow Up Plan Adult BMI Follow Up Plan [facility] Anaerobic microbial culture Anaerobic Culture [facility] Bacteria identified in Urine by Culture [facility] Patient Education [facility] Work Phone: Patient referral [facility] Work Phone: Immunizations Immunization Date Immunization Notes Care Provider Fa hector 12-18-2022 tetanus toxoid, redu swati diphtheria toxoid, and acellular pertussis vaccine, adsorbed SADAF Wyatt Work Phone: [facility] 05-19-2013 influenza virus vaccine, unspecified formulation Rosaura Víctor [facility] Work Phone: [facility] Payers Date Payer Category Payer Self-pay 2017 Medicaid 2017 Unknown 1992 Unknown [id number] 2.16.840.1.394481.3.579.2.278 1992 Unknown [id number] 2.16.840.1.401383.3.579.2.278 1992 Unknown [id number] 2.16.840.1.380692.3.579.2.278 1992 Unknown [id number] 2.16.840.1.053361.3.579.2.278 1992 Unknown [id number] 2.16.840.1.142147.3.579.2.593 1992 Unknown [id number] 2.16.840.1.644040.3.579.2.593 1992 Unknown [id number] 2.16.840.1.977709.3.579.2.593 1992 Unknown [id number] 2.16.840.1.024793.3.579.2.593 1992 Unknown [id number] 2.16.840.1.327203.3.579.2.593 1992 Unknown [id number] 2.16.840.1.123522.3.579.2.593 1992 Unknown [id number] 2.16.840.1.975587.3.579.2.593 1992 Unknown [id number] 2.16.840.1.681415.3.579.2.593 1992 Unknown [id number] 2.16.840.1.029070.3.579.2.593 1992 Unknown [id number] 2.16.840.1.186676.3.579.2.59 1992 Unknown [id number] 2.16.840.1.287372.3.579.2.59 1992 Unknown [id number] 2.16.840.1.731538.3.579.2.59 1992 Unknown [id number] 2.16.840.1.785933.3.579.2.59 1992 Unknown [id number] 2.16.840.1.091772.3.579.2.59 1992 Unknown [id number] 2.16.840.1.044078.3.579.2.59 1992 Unknown [id number] 2.16.840.1.515684.3.579.2.59 1992 Unknown [id number] 2.16.840.1.133238.3.579.2.59 1992 Unknown [id number] 2.16.840.1.263691.3.579.2.59 1992 Unknown [id number] 2.16.840.1.021565.3.579.2.59 1992 Unknown [id number] 2.16.840.1.452730.3.579.2.59 1992 Unknown [id number] 2.16.840.1.613753.3.579.2.593 1992 Unknown [id number] 2.16.840.1.768493.3.579.2.593 1992 Unknown [id number] 2.16.840.1.809932.3.579.2.1286 1992 Unknown [id number] 2.16.840.1.428253.3.579.2.1286 1992 Unknown [id number] 2.16.840.1.193413.3.579.2.1286 1992 Unknown [id number] 2.16.840.1.540591.3.579.2.1259 1992 Unknown [id number] 2.16.840.1.591213.3.579.2.9 1992 Unknown [id number] 2.16.840.1.998465.3.579.2.9 1992 Unknown [id number] 2.16.840.1.542456.3.579.2.1258 1992 Unknown [id number] 2.16.840.1.786682.3.579.2.9 1992 Unknown [id number] 2.16.840.1.602462.3.579.2.9 1992 Unknown [id number] 2.16.840.1.658899.3.579.2.1259 1957 Medicaid [id number] 1959 Medicaid [id number] Medicaid [id number] Unknown Regular Auto/Liability [id number] Unknown [id number] 2.16.840.1.531714.3.579.2.531 Unknown [id number] 2.16.840.1.509509.3.579.2.531 Unknown [id number] 2.16.840.1.881324.3.579.2.531 Unknown [id number] 2.16.840.1.859117.3.579.2.531 Unknown [id number] 2.16.840.1.731293.3.579.2.531 Social History Date Type Detail Facility Start: 02-05-2022 End: 05-09-2023 Tobacco smoking status MEIS Never smoked tobacco (finding) [facility] Start: 1990 Sex Assigned At Female [facility] Start: 12-19-2022 End: 12-19-2022 Tobacco smoking status MEIS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
[2023-10-23 14:11] VITALS: BP 117/62; PULSE 112
--- NOTE | 2023-10-23 15:20 | US_ITS ---
[address] [address] Patient Name: UZLEIKA WADDELL MRN: [id number] date: 1990 Sex: F Assigned Patient Location: US Current Patient Location: [place] Accession/Order Number: [id number] Exam Date: 10/23/2023 15:25 Report Date: 10/24/2023 07:37 At the request of: DAVE CUELLAR Procedure: US OB BPP w non-stress EXAMINATION: US OB BPP w non-stress HISTORY: History of trisomy 13 Z82.79 COMPARISON: Ultrasound OB biophysical 10/19/2023 TECHNIQUE: Ultrasound biophysical profile was performed in the radiology department. BREATHING MOVEMENTS: 2.0 GROSS BODY MOVEMENTS: 2.0 TONE: 2.0 QUALITATIVE AMNIOTIC FLUID VOLUME: 2.0 PRESENTATION: CEPHALIC HEART RATE: 164.3 bpm bpm. AMNIOTIC FLUID VOLUME: 11.7 cm GESTATIONAL AGE: 34 weeks 2 days CONCLUSION: Total biophysical profile score 8.0. Electronically authenticated by: FELECIA GOLDMAN Date: 10/24/2023 07:37
== END 2023-10-23 15:48 | disposition home or self-care (01) ==
LOC: US 07:29 → FBC 14:03
PROVIDERS: PCP Physician Assistant; Visit Provider Obstetrics & Gynecology
DX: Z82.79 Family history of other congenital malformations, deformations and chromosomal abnormalities (principal); Z3A.34 34 weeks gestation of pregnancy
CPT/HCPCS: 76818

== ENCOUNTER 2023-10-26 05:50 | Outpatient (OUT) | payer MEDICAID, SELFPAY ==
--- OUTSIDE RECORDS SUMMARY | 2023-10-26 05:53 | XMS_ITS | CCD ---
Author Organization [facility] Care Team Providers Care Architectural Engineering Teacher Name Role Phone CLARA JAMA Unavailable Unavail able SERENITY MALDONADO Unavailable Unavailable OKSANA CARO Unavailable UnavaNAGA Hull Unavailable Unavailable BARBOSA, LUKE MALIK Unavailable Unavailable PatrickSalomon terrell R Unavailable Unavailable Patrick, Salomon R Unavailable Unavailable Barbosa, Luke Unavailable Unavailable [place], Christian A Unavailable Unavailable Barbosa, Luke Unavailable Unavailable Shekhar, Christian A Unavailable Unavailable Barbosa, Luke Unavailable Unavailable [place], Christian A Unavailable Unavailable Barbosa, Luke Unavailable Unavailable [place], Christian A Unavailable Unavailable Barbosa, Luke Unavailable Unavailable [place], Christian A Unavailable Unavailable Shekhar, Christian A Unavailable Unavailable Barbosa, Luke Unavailable Unavailable [place], Christian A Unavailable Unavailable Barbosa, Luke Unavailable Unavailable [place], Christian A Unavailable Unavailable [place], Christian A Unavailable Unavailable Barbosa, Luke Unavailable Unavailable Barbosa, Luke Unavailable Unavailable Woo, Emiliano Unavailable Unavailable Woo, Emiliano Unavailable Unavailable Patrick, Salomon R Unavailable Unavailable Barbosa, Luke Unavailable Unavailable Barbosa, Luke Unavailable Unavailable Oscar, Jag W Unavailable Unavailable Firth, Jag W Unavailable Unavailable [place], Christian A Unavailable Unavailable Barbosa, Luke Unavailable [...] Unavail able Oscar, Jag W Unavailable Unavailable Firth, Jag W Unavailable Unavailable Barbosa, Luke Unavailable Unavailable No Doctor Assigned, Nodr Unavailable Unavail able SavageGamaliel M Unavailable Unavailable Barbosa, Luke Unavailable Unavailable Hannah, Aaron A Unavailable Unavailable Hannah, Aaron A Unavailable Unavailable Patrick, Salomon R Unavailable Unavailable Patrick, Salomon R Unavailable Unavailable Barbosa, Luke Unavailable Unavailable Frank, Juanita Unavailable Unavailable Frank, Juanita Unavailable Unavailable Barbosa, Luke Unavailable Unavailable [place], Christian A Unavailable Unavailable Shekhar, Christian A Unavailable Unavailable Barbosa, Luke Unavailable Unavailable [place], Christian A Unavailable Unavailable Barbosa, Luke Unavailable Unavailable Barbosa, Luke Unavailable Unavailable Oscar, Jag W Unavailable Unavailable Oscar, Jag W Unavailable Unavailable [place], Christian A Unavailable Unavailable Barbosa, Luke Unavailable Unavailable Gamaliel Savage M Unavailable Unavailable Gamaliel Savage M Unavailable Unavailable Barbosa, Luke Unavailable Unavailable Shekhar, [...] Provider SADAF Wyatt Primary Care Provider Meagan [facility] Elle E Emergency Provider [phone] DIANA .DR ACOSTA Consulting Unavailable [place] AIR [...] Emergency Provider Itzkowitz, DO Arden Admit Provider [phone] Itzkocece, DO Arden Attending Provider [phone] FRED Ventura Other Provider UnavailMD Juan Edwards Other Provider BRISA MoniqueC Ailyn Other Provider MD Jacques Valerio Other Provider MD Edith Urias Other Provider [phone] SADAF Wyatt Primary Care Provider [place], EXTENSION EDGER-BC Elle E Emergency Provider BRANNON Valencia Emergency Provider [phone] Andie Wyatt PA-C Primary Care Provider [phone] CUONG ORTIZ Referring Unavailable ANDIE WYATT Primary Care Unavailable Andie Johnson Unavailable Unallocated, Noms Provider Primary Care Provider Cesar Jean Admitting Unavailab Cesar Mckay Attending Unavailab le Andie Wyatt Primary Care Unavailable Itzdevorah, Arden Admitting Unavailable Campbell Orozcoic Attending Unavailable Andie Wyatt Primary Care Unavailable Igor [place] Consulting Unavailable Juan Krause Consulting Unavailable Ailyn Monique Consulting Unavailable Jacques aVlerio Consulting Unavailable Edith Urias Consulting Unavailable Bullimore, [...] [BEES] Propensity to adverse reactions (disorder) 8 [facility] Repository (2 sources) Mold spore; Translations: [MOLD SPORES] Propensity to adverse reactions (disorder) 8 [facility] Repository (18 sources) Penicillins; Translations: [PENICILLINS] Propensity to adverse reactions to drug (disorder) [facility] (12 sources) Sulfonamides (Antibiotic); Translations: [SULFA (SULFONAMIDE ANTIBIOTICS)] Propensity to adverse reactions to drug (disorder) 8 [facility] Repository (1 source) Bee/Wasp/Ant venom; Translations: [Bee Stings] Propensity to adverse reactions to drug (disorder) [facility] Repository (1 source) mold extract; Translations: [Mold] Drug Allergy [facility] Repository (1 source) Sulfonamides (Antibiotic); Translations: [sulfa drugs] Propensity to adverse reactions to drug (disorder) [facility] Repository (4 sources) bee venom; Translations: [BEE VENOM] Propensity to adverse reactions to drug (disorder) 8 [facility] Repository (1 source) OTHER; Translations: [OTHER] Propensity to adverse reactions to food (disorder) 8 [facility] Repository (1 source) MOLDS & SMUTS; Translations: [MOLDS & SMUTS] Propensity to adverse reactions to drug (disorder) 8 [facility] Repository (4 sources) SULFA ANTIBIOTICS; Translations: [SULFA ANTIBIOTICS] Propensity to adverse reactions to drug (disorder) 8 [facility] Repository (1 source) Sulfonamides (Antibiotic) Drug allergy (disorder) 4 [facility] Repository (4 sources) Bee Venom Protein (Honey Bee); Translations: [BEE VENOM PROTEIN (HONEY BEE)] Propensity to adverse reactions to drug 2 [facility] (1 source) Penicillin Drug Allergy 2 [facility] Repository (1 source) Sulfacetamide Drug Allergy 2 [facility] Repository Medications Current Medications Medication Drug [...] mouth in the morning. 0 02/27/2023 Active [place] (No Known Home Meds) (2 sources) Start: 12-18-2022 [place] (No Known Home Meds) Active December 18, [...] (-1 ORAL) Take by mouth. 0 Active Rebmakxp-Kgz-Az-FA (, w/Iron & FA,) 27-0.8 MG tablet (3 sources) Flafihyb-Efb-Pg-FA (, w/Iron & FA,) 27-0.8 MG tablet 1 (one) time each day at the same time. 0 Active AF-Yyf-AM-[place]-3 ( Gummies/DHA & FA) 0.4-32.5 MG chewable tablet (3 sources) Start: 07-09-2023 End: 08-08-2023 RI-Yac-AE-[place]-3 ( Gummies/DHA & FA) 0.4-32.5 MG chewable [...] Onset: 11-30-2017 Unclassified (3 sources) M/C OTH HONEY BLENDER 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 NA/UNS; Translations: [M/C OTH HONEY BLENDER 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 NA/UNS] Onset: 07-05-2022 Unclassified (1 [...] 12-12-2021 Episodic Unclassified (1 source) M/C OTH HONEY BLENDER 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 NA/UNS; Translations: [M/C OTH HONEY BLENDER 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 NA/UNS] Onset: 07-02-2022 Results Test Name Value Interpretation Reference Range Facility AFP, SERUM, OPEN SPINA BIFID Aon 07-20-2023 AFP MOM 1.[address] [facility] AFP VALUE 70.2 ng/mL . [facility] COMMENT: Comment . [facility] Comment on above: Alma Chaudhary , Ph.D., [facility] Director References: Available Upon Request. Multiples Of Median Cutoffs For AFP Elevations Briscoe 2.5 Black 2.8 IDD 2.0 Twins 4.5 Abbreviation Definitions IDD - Insulin Dep Diabetes OSBR - Open Spina Bifida Risk For further inquiries contact [facility] at [phone]. This test was developed and its performance characteristics determined by [facility]. It has not been cleared or approved by the Food and Drug Administration. Performed at: [facility] [place], [place] [id number] [employer] Supervisor: Oz Harkins [facility], Phone: [phone] GEST. AGE ON COLLECTION DATE 20.4 . [...] Customer Services to discuss available options. The [place] [employer] recommends amniocentesis be offered to women age 35 and older. MAT[age]GO 33.[address] [facility] MULTIPLE GESTATION No . [facility] OSBR RISK 1 [place] [address] . [facility] RACE . [facility] RESULTS Report . [facility] TEST RESULTS: Negative . [facility] WEIGHT [address] [facility] N N LMP [id number] 3 16 N 1 Y 159 N N N N White/ [facility] Urinalysis macro (dipstick) panel (U)on 07-18-2023 Bilirubin, UA Negative Negative - 4(70) +++ mg/dL [facility] Blood, UA Negative Negative - 50 Rakesh/mcL [facility] Clarity, UA Clear [facility] Color, UA Yellow [facility] Glucose, UA Negative Negative - 2000(110) ++++ mg/dL [facility] Interpretation and review of laboratory results Normal [facility] Ketones, UA Negative Negative - 160(16) ++++ mg/dL [facility] Leukocytes, UA Negative Negative - 500+++ Matti/mcL [facility] Nitrite, UA Negative Negative - Positive [facility] pH, UA 5.5 5 - [address] [facility] Protein, UA Negative Negative - 2000(20) ++++ mg/dL [facility] Spec Grav, UA 1.020 1 - 1.[address] [facility] Urobilinogen, UA 1.0 0.2 - 12 mg/dL [facility] ABO/Rh Retypeon 12-19-2022 ABO/RH Recheck Result Positive Normal [facility] Comment on above: Result Comment: PERF ORMED BY: [facility] [address] [place] [address] PATHOLOGIST KITCHEN CHEF MALVIN MEDLEY M.D. Amphetamine Screen Ql (U)Ord ered By: Oscar Poe on 12-19-2022 Amphetamines Ql (U) Negative Negative [facility] Amylaseon 12-19-2022 Amylase [Catalytic activity/Vol] 35 U/L Normal 29-103 [facility] Comment on above: Performed By: #### C BC, CREAT, GLU, LYTES, AST, ETOH, BARB, LIPASE, CK, BUN ####[facility] Aspartate Amino Transferaseo n 12-19-2022 AST [Catalytic activity/Vol] 26 U/L Normal 13-39 [facility] Comment on above: Performed By: #### C BC, CREAT, GLU, LYTES, AST, ETOH, BARB, LIPASE, CK, BUN ####[place] [id number] [address] Automated erythrocytes count in urine sediment (number/area)Ordered By: Oscar Poe on 12-19-2022 RBC Auto (Urine sed) [#/Area] 5-9 [HPF] 0-4 [facility] Automated leukocytes count i n urine sediment (number/area)Ordered By: Oscar Poe on 12-19-2022 WBC Auto (Urine sed) [#/Area] 10-19 [HPF] 0-4 [facility] Barbiturates [Presence] in U rine by Screen methodOrdered By: Oscar Poe on 12-19-2022 Barbiturates Screen Ql (U) Negative Negative [facility] Benzodiazepines Screen Ql (U )Ordered By: Oscar Poe on 12-19-2022 Benzodiazepines Ql (U) Negative Negative [facility] Benzoylecgonine [Presence] i n Urine by Screen methodOrdered By: Oscar Poe on 12-19-2022 Benzoylecgonine Screen Ql (U) Negative Negative [facility] Bilirubin Test strip Ql (U)O rdered By: Oscar Poe on 12-19-2022 Bilirubin Ql (U) Negative Negative [facility] Blood Urea Nitrogenon 2022 Urea nitrogen [Mass/Vol] 21 mg/dL Normal 7-25 [facility] Comment on above: Performed By: #### C BC, CREAT, GLU, LYTES, AST, ETOH, BARB, LIPASE, CK, BUN ####[facility] cervical spine wo conon 0 12-19-2022 CT cervical spine wo con [facility] [address] [place] [address] [place] [address] CT Scan Report Signed Patient: Zuleika Wyatt MR#: [id number] : 1990 Acct:[id number] Age/Sex: 32 / F ADM Date: 12/19/22 Loc: 4 Room: [address] [place] [address] Type: ADM INOo Attending Dr: Arden Orozco DO Copies to: DO Arden Jefferson DO Ordering Provider: Oscar Poe DO Date of Service: 12/18/22 CT/CT cervical spine wo con: f ([id number]) CT/CT head/brain wo con: f CT BRAIN [...] Pimentel Jr., Sammie12/19/2022 10:25 AM Dictation Location: [place] [address] Transcribed By: DONTE 12/19/22 1025 Dictated By: Rah Pimentel Jr, DO 12/19/22 1016 Signed By: 12/19/22 [address] [facility] [address] head/brain wo conon 12-19 CT head/brain wo con [facility] [place] [address] CT Scan Report Signed Patient: Zuleika Wyatt MR#: [id number] : 1990 Acct:[id number] Age/Sex: 32 / F ADM Date: 12/19/22 Loc: Room: [address] [place] [address] Type: DIS INOo Attending Dr: Arden Orozco [...] Pimentel Jr., D.O.12/19/2022 3:28 PM Dictation Location: [place] [address] Transcribed By: [facility] 12/19/22 1528 Dictated By: Rah Pimentel Jr, DO 12/19/22 1524 Signed By: 12/19/22 [address] [facility] [address] lumbar spine wo conon CT lumbar spine wo [facility] [place] [address] CT Scan Report Signed Patient: Zuleika Wyatt MR#: [id number] : 1990 Acct:[id number] Age/Sex: 32 / F ADM Date: 12/19/22 Loc: Room: [address] [place] [address] Type: ADM INOo Attending Dr: Arden Orozco DO Copies to: DO Arden Jefferson DO Ordering Provider: Oscar Poe DO Date of Service: 12/18/22 CT/CT thoracic spine wo con: f ([id number]) CT/CT lumbar spine wo con: f CT [...] narrowing or hypertrophy. The ribs within the utlho-zx-eryf appear intact. No paraspinal soft tissue abnormalities are present. The ascending aorta is mildly ectatic. The heart is not fully imaged though it is at least borderline prominent. There is no consolidation, pleural effusion or pneumothorax within the yaxpv-jg-upsd. No lumbar compression fractures are identified. There [...] The intra-abdominal and pelvic structures within the ukwkx-kd-pglb show no contributory findings. CT/CT thoracic spine wo con IMPRESSION: MILD THORACIC SCOLIOSIS. NO ACUTE BONY INJURY INVOLVING THE THORACIC OR LUMBAR SPINE. Impression dictated by: Adela Mahan M.D.12/19/2022 10:36 AM Dictation Location: [place] [address] Transcribed By: [facility] 12/19/22 1036 Dictated By: Adela Mahan MD 12/19/22 1026 Signed By: 12/19/22 1036 Normal [facility] Cannabinoids [Presence] in U rine by Screen methodOrdered By: Oscar Poe on 12-19-2022 Cannabinoids Screen Ql (U) Positive Negative [facility] Comment on above: These are unconfirme d results and should not be used for legal purposes. Drug Cut-Off Concentration: AMPH 1000 ng/mL SEEMA 200 ng/mL LAZ 200 ng/mL COCM 300 ng/mL OP 300 ng/mL PCP 25 ng/mL THC 20 ng/mL Color Auto (U)Ordered By: Fernando Poe on 12-19-2022 Color (U) Yellow Yellow [facility] Complete Blood Count Auto Di ffon 12-19-2022 Basophils (Bld) [#/Vol] 0.1 10*3/uL Normal 0.0-0.2 [facility] Comment on above: Result Comment: PERF ORMED BY: [facility] [address] [place] [address] PATHOLOGIST KITCHEN CHEF MALVIN MEDLEY M.D. Performed By: #### C BC, CREAT, GLU, LYTES, AST, ETOH, BARB, LIPASE, CK, BUN ####[address] Basophils/100 WBC (Bld) 0.7 % Normal . [facility] Comment on above: Performed By: #### C BC, CREAT, GLU, LYTES, AST, ETOH, BARB, LIPASE, CK, BUN ####[address] Eosinophils (Bld) [#/Vol] 0.0 10*3/uL Normal 0.0-0.45 [facility] Comment on above: Performed By: #### C BC, CREAT, GLU, LYTES, AST, ETOH, BARB, LIPASE, CK, BUN ####[address] Eosinophils/100 WBC (Bld) 0.2 % Normal . [facility] Comment on above: Performed By: #### C BC, CREAT, GLU, LYTES, AST, ETOH, BARB, LIPASE, CK, BUN ####[address] Erythrocyte distribution width (RBC) [Ratio] 14.4 % Normal 11.9-15.3 [facility] Comment on above: Performed By: #### C BC, CREAT, GLU, LYTES, AST, ETOH, BARB, LIPASE, CK, BUN ####[address] Hematocrit (Bld) [Volume fraction] 36.2 % Normal 34.0-46.4 [facility] Comment on above: Performed By: #### C BC, CREAT, GLU, LYTES, AST, ETOH, BARB, LIPASE, CK, BUN ####[address] Hemoglobin (Bld) [Mass/Vol] 11.9 g/dL Normal 11.8-15.4 [facility] Comment on above: Performed By: #### C BC, CREAT, GLU, LYTES, AST, ETOH, BARB, LIPASE, CK, BUN ####[address] Lymphocytes (Bld) [#/Vol] 2.2 10*3/uL Normal 1.00-4.8 [facility] Comment on above: Performed By: #### C BC, CREAT, GLU, LYTES, AST, ETOH, BARB, LIPASE, CK, BUN ####[address] Lymphocytes/100 WBC (Bld) 21.8 % Normal . [facility] Comment on above: Performed By: #### C BC, CREAT, GLU, LYTES, AST, ETOH, BARB, LIPASE, CK, BUN ####[address] MCH (RBC) [Entitic mass] 26.9 pg Normal 24.7-34.3 [facility] Comment on above: Performed By: #### C BC, CREAT, GLU, LYTES, AST, ETOH, BARB, LIPASE, CK, BUN ####[address] MCV (RBC) [Entitic vol] 82.1 fL Normal 80-100 [facility] Comment on above: Performed By: #### C BC, CREAT, GLU, LYTES, AST, ETOH, BARB, LIPASE, CK, BUN ####[address] Mean Corpuscular HGB Conc 32.8 g/dL Normal 32.0-35.0 [facility] Comment on above: Performed By: #### C BC, CREAT, GLU, LYTES, AST, ETOH, BARB, LIPASE, CK, BUN ####[address] Monocytes (Bld) [#/Vol] 0.8 10*3/uL Normal 0.0-0.8 [facility] Comment on above: Performed By: #### C BC, CREAT, GLU, LYTES, AST, ETOH, BARB, LIPASE, CK, BUN ####[address] Monocytes/100 WBC (Bld) 22.19 % High 0.00-20.00 [facility] Comment on above: Result Comment: For adults in ED, MDW > 20.0 may be associated with a higher risk of sepsis during the first 12 hrs of hospital admission Performed By: #### C BC, CREAT, GLU, LYTES, AST, ETOH, BARB, LIPASE, CK, BUN ####[address] Monocytes/100 WBC (Bld) 7.4 % Normal . [facility] Comment on above: Performed By: #### C BC, CREAT, GLU, LYTES, AST, ETOH, BARB, LIPASE, CK, BUN ####[address] Neutrophils (Bld) [#/Vol] 7.2 10*3/uL Normal 1.8-7.7 [facility] Comment on above: Performed By: #### C BC, CREAT, GLU, LYTES, AST, ETOH, BARB, LIPASE, CK, BUN ####[address] Neutrophils/100 WBC (Bld) 69.9 % Normal . [facility] Comment on above: Performed By: #### C BC, CREAT, GLU, LYTES, AST, ETOH, BARB, LIPASE, CK, BUN ####[address] NRBC% 0.1 /100{WBC} Normal 0-0.5 [facility] Comment on above: Performed By: #### C BC, CREAT, GLU, LYTES, AST, ETOH, BARB, LIPASE, CK, BUN ####[address] Platelet mean volume (Bld) [Entitic vol] 8.1 fL Normal 6.3-10.7 [facility] Comment on above: Performed By: #### C BC, CREAT, GLU, LYTES, AST, ETOH, BARB, LIPASE, CK, BUN ####[address] Platelets (Bld) [#/Vol] 223 10*3/uL Normal 150-450 [facility] Comment on above: Performed By: #### C BC, CREAT, GLU, LYTES, AST, ETOH, BARB, LIPASE, CK, BUN ####[address] RBC (Bld) [#/Vol] 4.42 10*6/uL Normal 3.60-5.00 [facility] Comment on above: Performed By: #### C BC, CREAT, GLU, LYTES, AST, ETOH, BARB, LIPASE, CK, BUN ####[address] WBC (Bld) [#/Vol] 10.3 10*3/uL Normal 3.8-11.6 [facility] Comment on above: Performed By: #### C BC, CREAT, GLU, LYTES, AST, ETOH, BARB, LIPASE, CK, BUN ####[address] Creatine Kinaseon 12-19-2022 CK [Catalytic activity/Vol] 50 U/L Normal 30-223 [facility] Comment on above: Result Comment: PERF ORMED BY: [facility] [address] [address] PATHOLOGIST KITCHEN CHEF MALVIN MEDLEY M.D. Performed By: #### C BC, CREAT, GLU, LYTES, AST, ETOH, BARB, LIPASE, CK, BUN ####[address] Creatinineon 12-19-2022 Creatinine [Mass/Vol] 0.84 mg/dL Normal 0.60-1.20 [facility] Comment on above: Performed By: #### C BC, CREAT, GLU, LYTES, AST, ETOH, BARB, LIPASE, CK, BUN ####[facility] [place] [address] [place] Creatinine Clr Calc Pharmacy 98.76 [facility] Comment on above: Performed By: #### C BC, CREAT, GLU, LYTES, AST, ETOH, BARB, LIPASE, CK, BUN ####[facility] GFR/1.73 sq M.predicted MDRD (S/P/Bld) [Vol rate/Area] mL/min/{1.73_m2} [facility] Comment on above: Performed By: #### C BC, CREAT, GLU, LYTES, AST, ETOH, BARB, LIPASE, CK, BUN ####[facility] Dipstick and Microscopicon 0 12-19-2022 Appearance (U) Clear Normal Clear [facility] Comment on above: Order Comment: Name Collection Type:: Clean-Voided Midstream Performed By: #### U RDS, UHCG, CUU, ADDONUAPLUS #### [facility] [address] [place] [address] [place] Bacteria,Urine None Seen Normal None Seen [facility] Comment on above: Order Comment: Name Collection Type:: Clean-Voided Midstream Performed By: #### U RDS, UHCG, CUU, ADDONUAPLUS #### [facility] [address] [place] [address] [place] Bilirubin,Urine Negative Normal Negative [facility] Comment on above: Order Comment: Name Collection Type:: Clean-Voided Midstream Performed By: #### U RDS, UHCG, CUU, ADDONUAPLUS #### [facility] [address] [place] [address] [place] Color (U) Yellow Normal Yellow [facility] Comment on above: Order Comment: Name Collection Type:: Clean-Voided Midstream Performed By: #### U RDS, UHCG, CUU, ADDONUAPLUS #### [facility] [address] [place] [address] [place] Glucose Ql (U) Normal Normal Normal [facility] Comment on above: Order Comment: Name Collection Type:: Clean-Voided Midstream Performed By: #### U RDS, UHCG, CUU, ADDONUAPLUS #### [facility] [address] [place] [address] Hyaline Casts,Urine 0-8 Normal 0-8 [facility] Comment on above: Order Comment: Name Collection Type:: Clean-Voided Midstream Performed By: #### U RDS, UHCG, CUU, ADDONUAPLUS #### [facility] [address] [place] [address] Ketones Ql (U) 1+ High Negative [facility] Comment on above: Order Comment: Name Collection Type:: Clean-Voided Midstream Performed By: #### U RDS, UHCG, CUU, ADDONUAPLUS #### [facility] [address] [place] [address] Leukocyte esterase Test strip Ql (U) 2+ High Negative [facility] Comment on above: Order Comment: Name Collection Type:: Clean-Voided Midstream Performed By: #### U RDS, UHCG, CUU, ADDONUAPLUS #### [facility] [address] [place] [address] [place] Nitrite,Urine Negative Normal Negative [facility] Comment on above: Order Comment: Name Collection Type:: Clean-Voided Midstream Performed By: #### U RDS, UHCG, CUU, ADDONUAPLUS #### [facility] [address] [place] [address] [place] Occult Blood,Urine Negative Normal Negative [facility] Comment on above: Order Comment: Name Collection Type:: Clean-Voided Midstream Performed By: #### U RDS, UHCG, CUU, ADDONUAPLUS #### [facility] [address] [place] [address] [place] pH (U) 5.5 [pH] Normal 5.0-9.0 [facility] Comment on above: Order Comment: Name Collection Type:: Clean-Voided Midstream Performed By: #### U RDS, UHCG, CUU, ADDONUAPLUS #### [facility] [address] [place] [address] [place] Protein,Urine Negative Normal Negative [facility] Comment on above: Order Comment: Name Collection Type:: Clean-Voided Midstream Performed By: #### U RDS, UHCG, CUU, ADDONUAPLUS #### [facility] [address] [place] [address] RBC,Urine 5-9 High 0-4 [facility] Comment on above: Order Comment: Name Collection Type:: Clean-Voided Midstream Performed By: #### U RDS, UHCG, CUU, ADDONUAPLUS #### [address] Specificy [place],Urine 1.025 Normal 1.001-1.03 0 [facility] Comment on above: Order Comment: Name Collection Type:: Clean-Voided Midstream Performed By: #### U RDS, UHCG, CUU, ADDONUAPLUS #### [facility] [address] [place] [address] Squamous Epithelial Cell,Urine 3-4 High 0-2 [facility] Comment on above: Order Comment: Name Collection Type:: Clean-Voided Midstream Performed By: #### U RDS, UHCG, CUU, ADDONUAPLUS #### [facility] [address] [place] [address] Urobilinogen,Urine Normal Normal Normal [facility] Comment on above: Order Comment: Name Collection Type:: Clean-Voided Midstream Performed By: #### U RDS, UHCG, CUU, ADDONUAPLUS #### [facility] [address] [place] [address] [place] WBC,Urine 10-19 High 0-4 [facility] Comment on above: Order Comment: Name Collection Type:: Clean-Voided Midstream Performed By: #### U RDS, UHCG, CUU, ADDONUAPLUS #### [facility] [address] [place] [address] Drug Screen,Urineon 12-20-19 Amphetamine Screen,Urine Negative Normal Negative [facility] Comment on above: Performed By: #### U RDS, UHCG, CUU, ADDONUAPLUS #### [address] Barbiturate Screen,Urine Negative Normal Negative [facility] Comment on above: Performed By: #### U RDS, UHCG, CUU, ADDONUAPLUS #### [address] Benzodiazepines Screen,Urine Negative Normal Negative [facility] Comment on above: Performed By: #### U RDS, UHCG, CUU, ADDONUAPLUS #### [address] Cannabinoid Screen,Urine Positive High Negative [facility] Comment on above: Result Comment: Thes e are unconfirmed results and should not be used for legal purposes. Drug Cut-Off Concentration: AMPH 1000 ng/mL SEEMA 200 ng/mL LAZ 200 ng/mL COCM 300 ng/mL OP 300 ng/mL PCP 25 ng/mL THC 20 ng/mL PERFORMED BY: [place] [address] PATHOLOGIST KITCHEN CHEF MALVIN MEDLEY M.D. Performed By: #### U RDS, UHCG, CUU, ADDONUAPLUS #### [address] Cocaine Screen,Urine Negative Normal Negative [facility] Comment on above: Performed By: #### U RDS, UHCG, CUU, ADDONUAPLUS #### [address] Opiate Screen,Urine Negative Normal Negative [facility] Comment on above: Performed By: #### U RDS, UHCG, CUU, ADDONUAPLUS #### [address] Phencyclidine Screen,Urine Negative Normal Negative [facility] Comment on above: Performed By: #### U RDS, UHCG, CUU, ADDONUAPLUS #### [address] ECG 12 lead ECGon 12-19-2022 ECG 12 lead ECG [facility] Main [place] [id number] Electrocardiograph Report Signed Patient: Zuleika Wyatt MR#: [id number] : 1990 Acct:[id number] Age/Sex: 32 / F ADM Date: 12/19/22 Loc: Room: [address] [place] [address] Type: DIS INOo Attending Dr: Arden Orozco [...] ECGs available Confirmed by OSCAR POE DO ([id number]) on 12/19/2022 10:18:39 PM Referred By: Electronically Signed By:OSCAR POE DO Transcribed By: MUS Signed By Oscar Poe DO 12/192 Normal [facility] Electrolyteson 12-19-2022 Anion gap [Moles/Vol] 14.5 mmol/L Normal 6.0-15.0 [facility] Comment on above: Performed By: #### C BC, CREAT, GLU, LYTES, AST, ETOH, BARB, LIPASE, CK, BUN ####[id number] [place] [id number] [facility] Chloride [Moles/Vol] 105 mmol/L Normal 98-107 [facility] Comment on above: Performed By: #### C BC, CREAT, GLU, LYTES, AST, ETOH, BARB, LIPASE, CK, BUN ####[facility] [place] [address] [facility] CO2 [Moles/Vol] 20.0 mmol/L Low 21.0-31.0 [facility] Comment on above: Performed By: #### C BC, CREAT, GLU, LYTES, AST, ETOH, BARB, LIPASE, CK, BUN ####[place] [id number] [address] Potassium [Moles/Vol] 3.5 mmol/L Normal 3.5-5.1 [facility] Comment on above: Performed By: #### C BC, CREAT, GLU, LYTES, AST, ETOH, BARB, LIPASE, CK, BUN ####[address] Sodium [Moles/Vol] 136 mmol/L Normal 136-145 [facility] Comment on above: Performed By: #### C BC, CREAT, GLU, LYTES, AST, ETOH, BARB, LIPASE, CK, BUN ####[address] Ethyl Alcohol Profileon Ethanol [Mass/Vol] mg/dL Normal [facility] Comment on above: Performed By: #### C BC, CREAT, GLU, LYTES, AST, ETOH, BARB, LIPASE, CK, BUN ####[address] Percent Ethanol Not performed Normal [facility] Comment on above: Result Comment: PERF ORMED BY: [facility] [address] [place] [address] PATHOLOGIST KITCHEN CHEF MALVIN MEDLEY M.D. Performed By: #### C BC, CREAT, GLU, LYTES, AST, ETOH, BARB, LIPASE, CK, BUN ####[place] [id number] [facility] Glucoseon 12-19-2022 Glucose [Mass/Vol] 93 mg/dL Normal 70-100 [facility] Comment on above: Result Comment: [place] Glucose Reference Range is dependent on time and content of last meal. Glucose of more than 200 mg/dL in a nonstressed, ambulatory subject supports the diagnosis of Diabetes Mellitus. ADA recommended reference range Performed By: #### C BC, CREAT, GLU, LYTES, AST, ETOH, BARB, LIPASE, CK, BUN ####[facility] [id number] HCG ( test) IA.rapi d Ql (U)Ordered By: Oscar Poe on 12-19-2022 HCG ( test) Ql (U) Negative [facility] HCG,Qualitative Serumon 07-0 HCG,Qualitative Serum Negative Normal [facility] Comment on above: Result Comment: PERF ORMED BY: [place] [address] PATHOLOGIST KITCHEN CHEF MALVIN MEDLEY M.D. Performed By: #### H CGQUAL #### [facility] [address] HCG,Urineon 12-19-2022 Beta HCG ( test) Ql (U) Negative Normal [facility] Comment on above: Order Comment: Name Collection Type:: Clean-Voided Midstream Result Comment: PERF ORMED BY: [place] [address] PATHOLOGIST KITCHEN CHEF MALVIN MEDLEY M.D. Performed By: #### U RDS, UHCG, CUU, ADDONUAPLUS #### [address] Ketones Auto test strip (U) [Mass/Vol]Ordered By: Oscar Poe on 12-19-2022 Ketones (U) [Mass/Vol] 1+ Negative [facility] - UrinalysisOrder ed By: Oscar Poe on 12-19-2022 Hyaline casts LM Ql (Urine sed) 0-8 [LPF] 0-8 [facility] Lipaseon 12-19-2022 Lipase [Catalytic activity/Vol] 29.0 U/L Normal 11.0-82.0 [facility] Comment on above: Result Comment: PERF ORMED BY: [facility] [address] [place] [address] PATHOLOGIST KITCHEN CHEF MALVIN MEDLEY M.D. Performed By: #### C BC, CREAT, GLU, LYTES, AST, ETOH, BARB, LIPASE, CK, BUN ####[facility] [address] [place] [address] [facility] Nitrite Test strip Ql (U)Ord ered By: Oscar Poe on 12-19-2022 Nitrite Ql (U) Negative Negative [facility] Opiates [Presence] in Urine by Screen methodOrdered By: Oscar Poe on 12-19-2022 Opiates Screen Ql (U) Negative Negative [facility] Phencyclidine Screen Ql (U)O rdered By: Oscar Poe on 12-19-2022 Phencyclidine Ql (U) Negative Negative [facility] Protein Auto test strip (U) [Mass/Vol]Ordered By: Oscar Poe on 12-19-2022 Protein (U) [Mass/Vol] Negative Negative [facility] Specific gravity Auto test s trip (U) [Rel density]Ordered By: Oscar Poe on 12-19-2022 Specific gravity (U) [Rel density] 1.025 1.001-1.03 0 [facility] Squamous epithelial cells de tection in urine sediment by light microscopyOrdered By: Oscar Poe on 12-19-2022 Epithelial cells.squamous LM Ql (Urine sed) 3-4 [HPF] 0-2 [facility] Type and Screenon 12-19-2022 ABO and Rh group Nom (Bld) Blood group A Rh(D) positive Normal [facility] Comment on above: Result Comment: PERF ORMED BY: [facility] [address] [place] [address] PATHOLOGIST KITCHEN CHEF MALVIN MEDLEY M.D. Urine Cultureon 12-19-2022 Bacteria identified Cx Nom (U) >100,000 colonies/ml mixed bacterial skin contaminants 2 Days PERFORMED BY: [facility] [address] [facility] [place] [address] PATHOLOGIST KITCHEN CHEF MALVIN MEDLEY M.D. [facility] Comment on above: Performed By: #### U RDS, UHCG, CUU, ADDONUAPLUS ####[facility] [address] [place] [address] [facility] Urine bacteria detection by automated methodOrdered By: Oscar Poe on 12-19-2022 Bacteria Auto Ql (U) None seen None Seen [facility] Urine clarity by refractomet ry automatedOrdered By: Oscar Poe on 12-19-2022 Clarity Refractometry automated (U) Clear Clear [facility] Urine culture routineOrdered By: Oscar Poe on 12-19-2022 Bacteria identified Cx Nom (U) 2 Days [facility] Urine glucose measurement by automated test strip (mass/volume)Ordered By: Oscar Poe on 12-19-2022 Glucose Auto test strip (U) [Mass/Vol] Normal mg/dL Normal [facility] Urine hemoglobin detection b y automated test stripOrdered By: Oscar Poe on 12-19-2022 Hemoglobin Auto test strip Ql (U) Negative Negative [facility] Urine leukocyte esterase det ection by automated test stripOrdered By: Oscar Poe on 12-19-2022 Leukocyte esterase Auto test strip Ql (U) 2+ Negative [facility] Urobilinogen Auto test strip (U) [Mass/Vol]Ordered By: Oscar Poe on 12-19-2022 Urobilinogen (U) [Mass/Vol] Normal mg/dL Normal [facility] XR knee BI 2Von 12-19-2022 XR knee BI 2V [facility] [place] [address] XRay Report Signed Patient: Zuleika Wyatt MR#: [id number] : 1990 Acct:[id number] Age/Sex: 32 / F ADM Date: 12/19/22 Loc: Room: [address] [place] [address] Type: ADM INOo Attending Dr: Arden Orozco DO Copies to: DO Arden Jefferson DO Ordering Provider: Oscar Poe DO Date of Service: 12/18/22 XR/XR knee BI 2V: f ([id number]) XR/XR chest 1V portable: TRAUMATIC INJURY ([id number]) XR/XR pelvis 1-2V: f ([id number]) XR/XR foot LT 2V: f CLINICAL DATA: [...] Adela Mahan M.D.12/19/2022 10:41 AM Dictation Location: [place] [address] Transcribed By: [facility] 12/19/22 1041 Dictated By: Adela Mahan MD 12/19/22 1036 Signed By: 12/19/22 1041 Normal [facility] pH Auto test strip (U)Ordere d By: Oscar Poe on 12-19-2022 pH (U) 5.5 [pH] 5.0-9.0 [facility] Amylase [Enzymatic activity/ volume] in Serum or PlasmaOrdered By: Oscar Poe on 12-18-2022 Amylase [Catalytic activity/Vol] 35 U/L 29-103 [facility] Aspartate aminotransferase [ Enzymatic activity/volume] in Serum or PlasmaOrdered By: Oscar Poe on 12-18-2022 AST [Catalytic activity/Vol] 26 U/L 13-39 [facility] Basophils Auto (Bld) [#/Vol] Ordered By: Oscar Poe on 12-18-2022 Basophils (Bld) [#/Vol] 0.1 10*3/uL 0.0-0.2 [facility] Basophils/100 WBC Auto (Bld) Ordered By: Oscar Poe on 12-18-2022 Basophils/100 WBC (Bld) 0.7 % . [facility] Carbon dioxide, total [Moles /volume] in Serum or PlasmaOrdered By: Oscar Poe on 12-18-2022 CO2 [Moles/Vol] 20.0 mmol/L 21.0-31.0 [facility] Chloride [Moles/volume] in S gwendolyn or PlasmaOrdered By: Oscar Poe on 12-18-2022 Chloride [Moles/Vol] 105 mmol/L 98-107 [facility] Choriogonadotropin.beta subu nit [Units/volume] in Serum or PlasmaOrdered By: Oscar Poe on 12-18-2022 HCG.beta subunit Qn Negative [facility] Creatine kinase [Enzymatic a ctivity/volume] in Serum or PlasmaOrdered By: Oscar Poe on 12-18-2022 CK [Catalytic activity/Vol] 50 U/L 30-223 [facility] Creatinine [Mass/volume] in Serum or PlasmaOrdered By: Oscar Poe on 12-18-2022 Creatinine [Mass/Vol] 0.84 mg/dL 0.60-1.20 [facility] Eosinophils Auto (Bld) [#/Vo l]Ordered By: Oscar Poe on 12-18-2022 Eosinophils (Bld) [#/Vol] 0.0 10*3/uL 0.0-0.45 [facility] Eosinophils/100 WBC Auto (Bl d)Ordered By: Oscar Poe on 12-18-2022 Eosinophils/100 WBC (Bld) 0.2 % . [facility] Erythrocyte distribution wid th Auto (RBC) [Ratio]Ordered By: Oscar Poe on 12-18-2022 Erythrocyte distribution width (RBC) [Ratio] 14.4 % 11.9-15.3 [facility] Ethanol [Mass/volume] in Ser um or PlasmaOrdered By: Oscar Poe on 12-18-2022 Ethanol [Mass/Vol] mg/dL [facility] Ethanol [Mass/Vol] TNP [facility] Comment on above: Test not performed Glucose [Mass/volume] in Ser um or PlasmaOrdered By: Oscar Poe on 12-18-2022 Glucose [Mass/Vol] 93 mg/dL 70-100 [facility] Comment on above: ADA recommended refe rence rangeRandom Glucose Reference Range is dependent on time and content of last meal. Glucose of more than 200 mg/dL in a nonstressed, ambulatory subject supports the diagnosis of Diabetes Mellitus. Hematocrit Auto (Bld) [Volum e fraction]Ordered By: Oscar Poe on 12-18-2022 Hematocrit (Bld) [Volume fraction] 36.2 % 34.0-46.4 [facility] Hemoglobin [Mass/volume] in BloodOrdered By: Oscar Poe on 12-18-2022 Hemoglobin (Bld) [Mass/Vol] 11.9 g/dL 11.8-15.4 [facility] Leukocytes [#/volume] correc osmel for nucleated erythrocytes in Blood by Automated counOrdered By: Oscar Poe on 12-18-2022 WBC corrected for nucl RBC Auto (Bld) [#/Vol] 10.3 10*3/uL 3.8-11.6 [facility] Lipase [Enzymatic activity/v olume] in Serum or PlasmaOrdered By: Oscar Poe on 12-18-2022 Lipase [Catalytic activity/Vol] 29.0 U/L 11.0-82.0 [facility] Lymphocytes Auto (Bld) [#/Vo l]Ordered By: Oscar Poe on 12-18-2022 Lymphocytes (Bld) [#/Vol] 2.2 10*3/uL 1.00-4.8 [facility] Lymphocytes/100 WBC Auto (Bl d)Ordered By: Oscar Poe on 12-18-2022 Lymphocytes/100 WBC (Bld) 21.8 % . [facility] MCH Auto (RBC) [Entitic mass ]Ordered By: Oscar Poe on 12-18-2022 MCH (RBC) [Entitic mass] 26.9 pg 24.7-34.3 [facility] MCHC Auto (RBC) [Mass/Vol]Or dered By: Oscar Poe on 12-18-2022 MCHC (RBC) [Mass/Vol] 32.8 g/dL 32.0-35.0 [facility] MCV Auto (RBC) [Entitic vol] Ordered By: Oscar Poe on 12-18-2022 MCV (RBC) [Entitic vol] 82.1 fL 80-100 [facility] Monocyte distribution width [Entitic volume] in Blood by AutomatedOrdered By: Oscar Poe on 12-18-2022 Monocyte distribution width Auto (Bld) [Entitic vol] 22.19 % 0.00-20.00 [facility] Comment on above: For adults in ED, MD W > 20.0 may be associated with a higher risk of sepsis during the first 12 hrs of hospital admission Monocytes Auto (Bld) [#/Vol] Ordered By: Oscar Poe on 12-18-2022 Monocytes (Bld) [#/Vol] 0.8 10*3/uL 0.0-0.8 [facility] Monocytes/100 WBC Auto (Bld) Ordered By: Oscar Poe on 12-18-2022 Monocytes/100 WBC (Bld) 7.4 % . [facility] Neutrophils Auto (Bld) [#/Vo l]Ordered By: Oscar Poe on 12-18-2022 Neutrophils (Bld) [#/Vol] 7.2 10*3/uL 1.8-7.7 [facility] Neutrophils/100 WBC Auto (Bl d)Ordered By: Oscar Poe on 12-18-2022 Neutrophils/100 WBC (Bld) 69.9 % . [facility] No Panel InformationOrdered By: Oscar Poe on 12-18-2022 Estimated GFR (CKD-EPI) > 60.0 mL/Min [facility] Creatinine Clearance (Chem 98.76 [facility] Nucleated erythrocytes [Pres ence] in Blood by Automated countOrdered By: Oscar Poe on 12-18-2022 Nucleated RBC Auto Ql (Bld) 0.1 /100{WBC} 0-0.5 [facility] Platelet mean volume Auto (B ld) [Entitic vol]Ordered By: Oscar Poe on 12-18-2022 Platelet mean volume (Bld) [Entitic vol] 8.1 fL 6.3-10.7 [facility] Platelets Auto (Bld) [#/Vol] Ordered By: Oscar Poe on 12-18-2022 Platelets (Bld) [#/Vol] 223 10*3/uL 150-450 [facility] Potassium [Moles/volume] in Serum or PlasmaOrdered By: Oscar Poe on 12-18-2022 Potassium [Moles/Vol] 3.5 mmol/L 3.5-5.1 [facility] RBC Auto (Bld) [#/Vol]Ordere d By: Oscar Poe on 12-18-2022 RBC (Bld) [#/Vol] 4.42 10*6/uL 3.60-5.00 [facility] Serum or plasma anion gap de terminationOrdered By: Oscar Poe on 12-18-2022 Anion gap [Moles/Vol] 14.5 mmol/L 6.0-15.0 [facility] Sodium [Moles/volume] in Ser um or PlasmaOrdered By: Oscar Poe on 12-18-2022 Sodium [Moles/Vol] 136 mmol/L 136-145 [facility] Urea nitrogen [Mass/volume] in Serum or PlasmaOrdered By: Oscar Poe on 12-18-2022 Urea nitrogen [Mass/Vol] 21 mg/dL 7-25 [facility] WBC Auto (Bld) [#/Vol]Ordere d By: Oscar Poe on 12-18-2022 WBC (Bld) [#/Vol] 10.3 10*3/uL 3.8-11.6 [facility] PRBC LEUKOREDUCEDon 07-14-19 23 ABO and Rh group Nom (Bld) Cross Match Result Compatible Unit Blood Type A Pos Unit Number [id number] Status Information Released Specimen Exp Date Product ID Red Blood Cells Product Code [id number] Cross Match Result Compatible Unit Blood Type A Pos Unit Number [id number] Status Information Transfused Product ID Red Blood Cells Product Code [id number] Normal [facility] Comment on above: Performed By: #### R UBIGG #### [facility] [address] [place] [address] Dr. Juan Antonio Ibarra CBC AUTO DIFFon 07-07-2022 BASO # 0.0 103/ul Normal 0.0-0.1 [facility] Comment on above: Performed By: #### A 1C #### [facility] [address] [place] [address] Dr. Juan Antonio Ibarra Basophils/100 WBC (Bld) 0.3 % Normal 0.2-2.0 [facility] Comment on above: Performed By: #### A 1C #### [facility] [address] [place] [address] Dr. Juan Antonio Ibarra EO # 0.1 103/ul Normal 0.0-0.7 [facility] Comment on above: Performed By: #### A 1C #### [facility] [address] [place] [address] Dr. Juan Antonio Ibarra Eosinophils/100 WBC (Bld) 0.9 % Normal 0.9-7.0 [facility] Comment on above: Performed By: #### A 1C #### [facility] [address] [place] [address] Dr. Juan Antonio Ibarra Erythrocyte distribution width (RBC) [Ratio] 14.5 % Normal 11.0-15.0 [facility] Comment on above: Performed By: #### A 1C #### [facility] [address] [place] [address] Dr. Juan Antonio Ibarra Hematocrit (Bld) [Volume fraction] 22.5 % Critically low 36.0-48.0 [facility] Comment on above: Performed By: #### A 1C #### [facility] [address] [place] [address] Dr. Juan Antonio Ibarra Hemoglobin (Bld) [Mass/Vol] 7.9 g/dL Critically low 12.0-16.0 [facility] Comment on above: Performed By: #### A 1C #### [facility] [address] [place] [address] Dr. Juan Antonio Ibarra IG # 0.10 10e3/ul Critically high 0.00-0.03 [facility] Comment on above: Performed By: #### A 1C #### [facility] [address] [place] [address] Dr. Juan Antonio Ibarra IG % 0.9 % Critically high 0.0-0.5 [facility] Comment on above: Performed By: #### A 1C #### [facility] [address] [place] [address] Dr. Juan Antonio Ibarra LYMPH # 1.6 103/ul Normal 1.2-3.8 [facility] Comment on above: Performed By: #### A 1C #### [facility] [address] [place] [address] Dr. Juan Antonio Ibarra Lymphocytes/100 WBC (Bld) 14.0 % Critically low 20.5-60.0 [facility] Comment on above: Performed By: #### A 1C #### [facility] [address] [place] [address] Dr. Juan Antonio Ibarra MANUAL DIFF REQ NO Normal [facility] Comment on above: Performed By: #### A 1C #### [facility] [address] [place] [address] Dr. Juan Antonio Ibarra MCH (RBC) [Entitic mass] 26.4 pg Critically low 26.7-34.0 [facility] Comment on above: Performed By: #### A 1C #### [facility] [address] [place] [address] Dr. Juan Antonio Ibarra MCHC (RBC) [Mass/Vol] 35.1 g/dL Normal 29.9-35.2 [facility] Comment on above: Performed By: #### A 1C #### [facility] [address] [place] [address] Dr. Juan Antonio Ibarra MCV (RBC) [Entitic vol] 75.3 fL Critically low 81.0-99.0 [facility] Comment on above: Performed By: #### A 1C #### [facility] [address] [place] [address] Dr. Juan Antonio Ibarra MONO # 0.7 103/ul Normal 0.3-0.8 [facility] Comment on above: Performed By: #### A 1C #### [facility] [address] [place] [address] Dr. Juan Antonio Ibarra Monocytes/100 WBC (Bld) 6.2 % Normal 1.7-12.0 [facility] Comment on above: Performed By: #### A 1C #### [facility] [address] [place] [address] [address] Juan Antonio Ibarra NEUT # 9.1 103/ul Critically high 1.4-6.5 [facility] Comment on above: Performed By: #### A 1C #### [facility] [address] [place] [address] Dr. Juan Antonio Ibarra Neutrophils/100 WBC (Bld) 77.7 % Critically high 43.0-75.0 [facility] Comment on above: Performed By: #### A 1C #### [facility] [address] [place] [address] Dr. Juan Antonio Ibarra Platelet mean volume (Bld) [Entitic vol] 9.2 fL Critically low 9.5-13.5 [facility] Comment on above: Performed By: #### A 1C #### [facility] [address] [place] [address] Dr. Juan Antonio Ibarra PLT 143 103/ul Critically low 150-450 [facility] Comment on above: Performed By: #### A 1C #### [facility] [address] [place] [address] Dr. Juan Antonio Ibarra RBC 2.99 106/ul Critically low 4.20-5.40 [facility] Comment on above: Performed By: #### A 1C #### [facility] [address] [place] [address] Dr. Juan Antonio Ibarra WBC 11.7 103/ul Critically high 4.0-11.0 [facility] Comment on above: Performed By: #### A 1C #### [facility] [address] [place] [address] Dr. Juan Antonio Ibarra CBC AUTO DIFFon 07-06-2022 BASO # 0.0 103/ul Normal 0.0-0.1 [facility] Comment on above: Performed By: #### A 1C #### [facility] [address] [place] [address] Dr. Juan Antonio Ibarra Basophils/100 WBC (Bld) 0.3 % Normal 0.2-2.0 [facility] Comment on above: Performed By: #### A 1C #### [facility] [address] [place] [address] Dr. Juan Antonio Ibarra EO # 0.1 103/ul Normal 0.0-0.7 [facility] Comment on above: Performed By: #### A 1C #### [facility] [address] [place] [address] Dr. Juan Antonio Ibarra Eosinophils/100 WBC (Bld) 0.8 % Critically low 0.9-7.0 [facility] Comment on above: Performed By: #### A 1C #### [facility] [address] [place] [address] Dr. Juan Antonio Ibarra Erythrocyte distribution width (RBC) [Ratio] 14.3 % Normal 11.0-15.0 [facility] Comment on above: Performed By: #### A 1C #### [facility] [address] [place] [address] Dr. Juan Antonio Ibarra Hematocrit (Bld) [Volume fraction] 23.0 % Critically low 36.0-48.0 [facility] Comment on above: Performed By: #### A 1C #### [facility] [address] [place] [address] Dr. Juan Antonio Ibarra Hemoglobin (Bld) [Mass/Vol] 7.5 g/dL Critically low 12.0-16.0 [facility] Comment on above: Performed By: #### A 1C #### [facility] [address] [place] [address] Dr. Juan Antonio Ibarra IG # 0.07 10e3/ul Critically high 0.00-0.03 [facility] Comment on above: Performed By: #### A 1C #### [facility] [address] [place] [address] Dr. Juan Antonio Ibarra IG % 0.6 % Critically high 0.0-0.5 [facility] Comment on above: Performed By: #### A 1C #### [facility] [address] [place] [address] Dr. Juan Antonio Ibarra LYMPH # 2.1 103/ul Normal 1.2-3.8 [facility] Comment on above: Performed By: #### A 1C #### [facility] [address] [place] [address] Dr. Juan Antonio Ibarra Lymphocytes/100 WBC (Bld) 18.8 % Critically low 20.5-60.0 [facility] Comment on above: Performed By: #### A 1C #### [facility] [address] [place] [address] Dr. Juan Antonio Ibarra MANUAL DIFF REQ NO Normal [facility] Comment on above: Performed By: #### A 1C #### [facility] [address] [place] [address] Dr. Juan Antonio Ibarra MCH (RBC) [Entitic mass] 26.0 pg Critically low 26.7-34.0 [facility] Comment on above: Performed By: #### A 1C #### [facility] [address] [place] [address] Dr. Juan Antonio Ibarra MCHC (RBC) [Mass/Vol] 32.6 g/dL Normal 29.9-35.2 [facility] Comment on above: Performed By: #### A 1C #### [facility] [address] [place] [address] Dr. Juan Antonio Ibarra MCV (RBC) [Entitic vol] 79.9 fL Critically low 81.0-99.0 [facility] Comment on above: Performed By: #### A 1C #### [facility] [address] [place] [address] Dr. Juan Antonio Ibarra MONO # 0.7 103/ul Normal 0.3-0.8 [facility] Comment on above: Performed By: #### A 1C #### [facility] [address] [place] [address] Dr. Juan Antonio Ibarra Monocytes/100 WBC (Bld) 6.6 % Normal 1.7-12.0 [facility] Comment on above: Performed By: #### A 1C #### [facility] [address] [place] [address] Dr. Juan Antonio Ibarra NEUT # 8.2 103/ul Critically high 1.4-6.5 [facility] Comment on above: Performed By: #### A 1C #### [facility] [address] [place] [address] Dr. Juan Antonio Ibarra Neutrophils/100 WBC (Bld) 72.9 % Normal 43.0-75.0 [facility] Comment on above: Performed By: #### A 1C #### [facility] [address] [place] [address] Dr. Juan Antonio Ibarra Platelet mean volume (Bld) [Entitic vol] 9.8 fL Normal 9.5-13.5 [facility] Comment on above: Performed By: #### A 1C #### [facility] [address] [place] [address] Dr. Juan Antonio Ibarra PLT 151 103/ul Normal 150-450 [facility] Comment on above: Performed By: #### A 1C #### [facility] [address] [place] [address] Dr. Juan Antonio Ibarra RBC 2.88 106/ul Critically low 4.20-5.40 [facility] Comment on above: Performed By: #### A 1C #### [facility] [address] [place] [address] Dr. Juan Antonio Ibarra WBC 11.3 103/ul Critically high 4.0-11.0 [facility] Comment on above: Performed By: #### A 1C #### [facility] [address] [place] [address] Dr. Juan Antnoio Ibarra CBC AUTO DIFFon 07-05-2022 BASO # 0.0 103/ul Normal 0.0-0.1 [facility] Comment on above: Performed By: #### R PRQ #### [facility] [address] [place] [address] Dr. Juan Antonio Ibarra Basophils/100 WBC (Bld) 0.2 % Normal 0.2-2.0 [facility] Comment on above: Performed By: #### R PRQ #### [facility] [address] [place] [address] Dr. Juan Antonio Ibarra EO # 0.0 103/ul Normal 0.0-0.7 [facility] Comment on above: Performed By: #### R PRQ #### [facility] [address] [address] [address] Juan Antonio Ibarra Eosinophils/100 WBC (Bld) 0.4 % Critically low 0.9-7.0 [facility] Comment on above: Performed By: #### R PRQ #### [facility] [address] [place] [address] Dr. Juan Antonio Ibarra Erythrocyte distribution width (RBC) [Ratio] 14.2 % Normal 11.0-15.0 [facility] Comment on above: Performed By: #### R PRQ #### [facility] [address] [place] [address] Dr. Juan Antonio Ibarra Hematocrit (Bld) [Volume fraction] 31.0 % Critically low 36.0-48.0 [facility] Comment on above: Performed By: #### R PRQ #### [facility] [address] [place] [address] Dr. Juan Antonio Ibarra Hemoglobin (Bld) [Mass/Vol] 10.1 g/dL Critically low 12.0-16.0 [facility] Comment on above: Performed By: #### R PRQ #### [facility] [address] [place] [address] Dr. Juan Antonio Ibarra IG # 0.10 10e3/ul Critically high 0.00-0.03 [facility] Comment on above: Performed By: #### R PRQ #### [facility] [address] [place] [address] Dr. Juan Antonio Ibarra IG % 1.1 % Critically high 0.0-0.5 [facility] Comment on above: Performed By: #### R PRQ #### [facility] [address] [place] [address] Dr. Juan Antonio Ibarra LYMPH # 1.6 103/ul Normal 1.2-3.8 [facility] Comment on above: Performed By: #### R PRQ #### [facility] [address] [place] [address] Dr. Juan Antonio Ibarra Lymphocytes/100 WBC (Bld) 17.5 % Critically low 20.5-60.0 [facility] Comment on above: Performed By: #### R PRQ #### [facility] [address] [place] [address] Dr. Juan Antonio Ibarra MANUAL DIFF REQ NO Normal [facility] Comment on above: Performed By: #### R PRQ #### [facility] [address] [place] [address] Dr. Juan Antonio Ibarra MCH (RBC) [Entitic mass] 25.8 pg Critically low 26.7-34.0 [facility] Comment on above: Performed By: #### R PRQ #### [facility] [address] [place] [address] Dr. Juan Antonio Ibarra MCHC (RBC) [Mass/Vol] 32.6 g/dL Normal 29.9-35.2 [facility] Comment on above: Performed By: #### R PRQ #### [facility] [address] [place] [address] Dr. Juan Antonio Ibarra MCV (RBC) [Entitic vol] 79.3 fL Critically low 81.0-99.0 [facility] Comment on above: Performed By: #### R PRQ #### [facility] [address] [place] [address] Dr. Juan Antonio Ibarra MONO # 0.7 103/ul Normal 0.3-0.8 [facility] Comment on above: Performed By: #### R PRQ #### [facility] [address] [place] [address] Dr. Juan Antonio Ibarra Monocytes/100 WBC (Bld) 8.1 % Normal 1.7-12.0 [facility] Comment on above: Performed By: #### R PRQ #### [facility] [address] [place] [address] Dr. Juan Antonio Ibarra NEUT # 6.7 103/ul Critically high 1.4-6.5 [facility] Comment on above: Performed By: #### R PRQ #### [facility] [address] [place] [address] Dr. Juan Antonio Ibarra Neutrophils/100 WBC (Bld) 72.7 % Normal 43.0-75.0 [facility] Comment on above: Performed By: #### R PRQ #### [facility] [address] [place] [address] Dr. Juan Antonio Ibarra Platelet mean volume (Bld) [Entitic vol] 10.1 fL Normal 9.5-13.5 [facility] Comment on above: Performed By: #### R PRQ #### [facility] [address] [place] [address] Dr. Juan Antonio Ibarra PLT 202 103/ul Normal 150-450 [facility] Comment on above: Performed By: #### R PRQ #### [facility] [address] [place] [address] Dr. Juan Antonio Ibarra RBC 3.91 106/ul Critically low 4.20-5.40 [facility] Comment on above: Performed By: #### R PRQ #### [facility] [address] [place] [address] Dr. Juan Antonio Ibarra WBC 9.2 103/ul Normal 4.0-11.0 [facility] Comment on above: Performed By: #### R PRQ #### [facility] [address] [place] [address] Dr. Juan Antonio Ibarra DRUG SCREEN RAPID (URINE)on 07-05-2022 AMP Negative Normal NEGATIVE [facility] Comment on above: Performed By: #### A 1C #### [facility] [address] [place] [address] Dr. Juan Antonio Ibarra BAR Negative Normal NEGATIVE [facility] Comment on above: Performed By: #### A 1C #### [facility] [address] [place] [address] Dr. Juan Antonio Ibarra BUP Negative Normal NEGATIVE [facility] Comment on above: Performed By: #### A 1C #### [facility] [address] [place] [address] Dr. Juan Antonio Ibarra BZO Negative Normal NEGATIVE [facility] Comment on above: Performed By: #### A 1C #### [facility] [address] [place] [address] Dr. Juan Antonio Ibarra PARAM Negative Normal NEGATIVE [facility] Comment on above: Performed By: #### A 1C #### [facility] [address] [place] [address] Dr. Juan Antonio Ibarra CUT-OFFS SEE BELOW Normal [facility] Comment on above: Result Comment: AMP [...] ng/mL Performed By: #### A 1C #### [facility] [address] [place] [address] Dr. Juan Antonio Ibarra DRUG CUT HEADER DRUG CLASS TEST SYST EM CUT-OFF CONCENTRATIONS ARE FOLLOWS: Normal [facility] Comment on above: Performed By: #### A 1C #### [facility] [address] [place] [address] Dr. Juan Antonio Ibarra mAMP Negative Normal NEGATIVE [facility] Comment on above: Performed By: #### A 1C #### [facility] [address] [place] [address] Dr. Juan Antonio Ibarra MTD Negative Normal NEGATIVE [facility] Comment on above: Performed By: #### A 1C #### [facility] [address] [place] [address] Dr. Juan Antonio Ibarra OPI Negative Normal NEGATIVE [facility] Comment on above: Performed By: #### A 1C #### [facility] [address] [place] [address] Dr. Juan Antonio Ibarra OXY Negative Normal NEGATIVE [facility] Comment on above: Performed By: #### A 1C #### [facility] [address] [place] [address] Dr. Juan Antonio Ibarra PCP Negative Normal NEGATIVE [facility] Comment on above: Performed By: #### A 1C #### [facility] [address] [address] [address] Juan Antonio Ibarra PPX Negative Normal NEGATIVE [facility] Comment on above: Performed By: #### A 1C #### [facility] [address] [address] [address] Juan Antonio Ibarra TCA Negative Normal NEGATIVE [facility] Comment on above: Performed By: #### A 1C #### [facility] [address] [address] [address] Juan Antonio Ibarra THC Negative Normal NEGATIVE [facility] Comment on above: Performed By: #### A 1C #### [facility] [address] [address] [address] Juan Antonio Ibarra TYPE AND SCREENon 07-05-2022 TYPE AND SCREEN Negative Normal [facility] Comment on above: Performed By: #### T NS #### [facility] [address] [address] [address] Juan Antonio Ibarra US PREG BIOPHY [...] FELECIA GOLDMAN Date: 2022-06-28 15:29 Normal [facility] US PREG BIOPHY W NON STRESSo n [...] FELECIA GOLDMAN Date: 2022-06-21 17:20 Normal [facility] US PREG GROWTHon 06-21-2022 US PREG GROWTH [...] GAMALIEL CRUMP Date: 2022-06-21 13:37 Normal [facility] CULTURE URINEon 06-16-2022 CULTURE URINE Culture Observations : LIGHT GROWTH OF MIXED GENITAL ALONSO. NO POTENTIAL PATHOGENS SEEN. Normal [facility] Comment on above: Performed By: #### U RCX #### [facility] [address] [place] [address] Dr. Juan Antonio Ibarra UA (CLEAN/CATCH) HONEY BLENDER/MICRO I F IND.on 06-16-2022 Bilirubin Ql (U) Negative Normal NEGATIVE [facility] Comment on above: Performed By: #### U MICRO, UACSIND #### [facility] [address] [place] [address] Dr. Juan Antonio Ibarra Clarity (U) CLEAR Normal CLEAR [facility] Comment on above: Performed By: #### U MICRO, UACSIND #### [facility] [address] [place] [address] Dr. Juan Antonio Ibarra Color (U) LT. YELLOW Normal YELLOW [facility] Comment on above: Performed By: #### U MICRO, UACSIND #### [facility] [address] [address] [address] Juan Antonio Ibarra Glucose Ql (U) Negative Normal NEGATIVE [facility] Comment on above: Performed By: #### U MICRO, UACSIND #### [facility] [address] [address] [address] Juan Antonio Ibarra Hemoglobin Ql (U) Negative Normal NEGATIVE [facility] Comment on above: Performed By: #### U MICRO, UACSIND #### [facility] [address] [address] [address] Juan Antonio Ibarra Ketones Ql (U) Negative Normal NEGATIVE [facility] Comment on above: Performed By: #### U MICRO, UACSIND #### [facility] [address] [place] [address] Dr. Juan Antonio Ibarra LEUKOCYTES MODERATE Abnormal NEGATIVE [facility] Comment on above: Performed By: #### U MICRO, UACSIND #### [facility] [address] [place] [address] Dr. Juan Antonio Ibarra Nitrite Ql (U) Negative Normal NEGATIVE [facility] Comment on above: Performed By: #### U MICRO, UACSIND #### [facility] [address] [place] [address] Dr. Juan Antonio Ibarra pH (U) 6.0 [pH] Normal 5-9 [facility] Comment on above: Performed By: #### U MICRO, UACSIND #### [facility] [address] [place] [address] Dr. Juan Antonio Ibarra SPEC GRAVITY 1.020 Normal 1.005-<=1. 025 [facility] Comment on above: Performed By: #### U MICRO, UACSIND #### [facility] [address] [place] [address] Dr. Juan Antonio Ibarra UA PROTEIN Negative Normal NEGATIVE/ TRACE [facility] Comment on above: Performed By: #### U MICRO, UACSIND #### [facility] [address] [address] [address] Juan Antonio Ibarra UR MICRO IND INDICATED Normal [facility] Comment on above: Performed By: #### U MICRO, UACSIND #### [facility] [address] [place] [address] Dr. Juan Antonio Ibarra Urobilinogen Qn (U) 1.0 {Pamela'U}/dL Normal 0.2 - 1. 0 [facility] Comment on above: Performed By: #### U MICRO, UACSIND #### [facility] [address] [place] [address] Dr. Juan Antonio Ibarra URINE MICROSCOPIC ONLYon BACTERIA SMALL Abnormal NONE SEEN [facility] Comment on above: Performed By: #### U MICRO, UACSIND #### [facility] [address] [place] [address] Dr. Juan Antonio Ibarra Bacteria identified Cx Nom (U) INDICATED Normal [facility] Comment on above: Performed By: #### U MICRO, UACSIND #### [facility] [address] [place] [address] Dr. Juan Antonio Ibarra CAST NONE SEEN Normal NONE SEEN [facility] Comment on above: Performed By: #### U MICRO, UACSIND #### [facility] [address] [place] [address] Dr. Juan Antonio Ibarra Crystals LM Nom (Urine sed) NONE SEEN Normal NONE SEEN [facility] Comment on above: Performed By: #### U MICRO, UACSIND #### [facility] [address] [place] [address] Dr. Juan Antonio Ibarra Epithelial cells LM Ql (Urine sed) RARE Normal NONE SEEN /RARE [facility] Comment on above: Performed By: #### U MICRO, UACSIND #### [facility] [address] [place] [address] Dr. Juan Antonio Ibarra MUCOUS NONE SEEN Normal NONE SEEN [facility] Comment on above: Performed By: #### U MICRO, UACSIND #### [facility] [address] [place] [address] Dr. Juan Antonio Ibarra RBC NONE SEEN Abnormal 0-2 [facility] Comment on above: Performed By: #### U MICRO, UACSIND #### [facility] [address] [place], [place] [address] Dr. Juan Antonio Ibarra WBC 2-5 Abnormal NONE SEEN [facility] Comment on above: Performed By: #### U MICRO, UACSIND #### [facility] [address] [place], [place] [address] Dr. Juan Antonio Ibarra GROUP B STREP CULTUREon 05-18 S. agalactiae Ag Ql (Unsp spec) Culture Observations: NEGATIVE FOR GROUP B STREPTOCOCCUS. Normal [facility] Comment on above: Performed By: #### G BSCX #### [facility] [address] [place], [place] [address] Dr. Juan Antonio Ibarra US PREG BIOPHY [...] CRUMP Date: 2022-06-14 16:10 Normal [facility] US PREG BIOPHY W NON STRESSo [...] by: FELECIA GOLDMAN Date: 2022-06-07 16:42 Normal [facility] US PREG BIOPHY W NON STRESSo [...] GOLDMAN Date: 2022-06-04 17:11 Normal [facility] US PREG BIOPHY W NON STRESS [...] GOLDMAN Date: 2022-06-04 16:23 Normal [facility] US PREG BIOPHY W NON STRESSo [...] CRUMP Date: 2022-05-31 18:39 Normal [facility] US PREG BIOPHY W NON STRESSo [...] FELECIA GOLDMAN Date: 2022-05-24 16:34 Normal [facility] US PREG GROWTHon 05-24-2022 US PREG GROWTH [...] FELECIA GOLDMAN Date: 2022-05-24 16:33 Normal [facility] GLUCOSE - 1HRon 04-04-2022 Glucose [Mass/Vol] 101 mg/dL Normal 74-106 [facility] Comment on above: Performed By: #### R PRQ #### [facility] [address] [place] [address] Dr. Juan Antonio Ibarra HEMOGRAM AND PLATELon 2021 Hematocrit (Bld) [Volume fraction] 33.5 % Critically low 36.0-48.0 [facility] Comment on above: Performed By: #### A 1C #### [facility] [address] [place] [address] Dr. Juan Antonio Ibarra Hemoglobin (Bld) [Mass/Vol] 10.7 g/dL Critically low 12.0-16.0 [facility] Comment on above: Performed By: #### A 1C #### [facility] [address] [place] [address] Dr. Juan Antonio Ibarra MCH (RBC) [Entitic mass] 29.3 pg Normal 26.7-34.0 [facility] Comment on above: Performed By: #### A 1C #### [facility] [address] [place] [address] Dr. Juan Antonio Ibarra MCHC (RBC) [Mass/Vol] 31.9 g/dL Normal 29.9-35.2 [facility] Comment on above: Performed By: #### A 1C #### [facility] [address] [place] [address] Dr. Juan Antonio Ibarra MCV (RBC) [Entitic vol] 91.8 fL Normal 81.0-99.0 [facility] Comment on above: Performed By: #### A 1C #### [facility] [address] [place] [address] Dr. Juan Antonio Ibarra PLT 179 103/ul Normal 150-450 [facility] Comment on above: Performed By: #### A 1C #### [facility] [address] [place] [address] Dr. Juan Antonio Ibarra RBC 3.65 106/ul Critically low 4.20-5.40 [facility] Comment on above: Performed By: #### A 1C #### [facility] [address] [place] [address] Dr. Juan Antonio Ibarra WBC 9.9 103/ul Normal 4.0-11.0 [facility] Comment on above: Performed By: #### A 1C #### [facility] [address] [place] [address] Dr. Juan Antonio Ibarra US PREG REEVAL [...] by: FELECIA GOLDMAN Date: 2022-03-20 20:55 Normal [facility] US PREG ANATOMY SINGLEon US PREG [...] GOLDMAN Date: 2022-02-22 16:46 Normal [facility] Coding Summaryon 02-14-2022 Coding Summary [employer] [id number] [id number] Z0uhHsZayPHaCbx+PHRhYmxlIH eiSNTrSBsbNHXwTgSceJrzME9n An7pQGQbXYRqlTyntPBdJaXa m6fwJOHsJOhmLY7sgFqsG7VslC F3SFKke7o5Ye97ePZ+PHRkIHN0 hDgcUCjqn066NhNad4cvELS6 dRZsRWznJVH2A06ko6O1CROkJL EcMSI2vSV0tF7lwPddnarfX2Xs xTTnAtX1ALR7fULdmU7bxGqx byievP2oInl+C56VPT6PTBANKQ 8PGfa1V3PlDyyhkIK+JK88HEMl QE19tTMjfHDwe2mvmPe3NaVq FVQaPBW2lFyuRSxro8EsUNRoY5 8utSDxp2R6TPOspWveqOXcGvZo oUO8nD3qIElnwnlwl0nynsge Gbtnw9eyhq33nC24F22eRUxlGQ HuTVZ8RFRoQRAwwSvkpj8fbY8r Ii8+KKfww7yzx2bndHx3QyJt IHHcdhYbrZgyQVK6o5XhLr55L9 CysClfa3UzJyb3dk10qMUzh6I9 iST5IGucABUajT2pXJkoGsK5 OJVrStVveV95nMUrROxgOa6lgW lbwIrbWE9cBRQuhckcCOPosU9j ETVscWCvhHreJV2gWUIbaltz g796IyEjOBC1TNVeqETkC7IkeR 9fNqRuBFDmDOXjM7NrbOOxAPzl L002XPsvJrM9JRKhgcDpM2Mv XJVpgZaqNiZ0j9X9Zc9Ja6Todt cjQUD5IZlcKSO7ZkEeCmLsHwD1 K5TsYzc6YSCckQzpYR5wW7Ew GTSjfhpwzxgheBV5WSJmZMOeoS 47pTWuLYtaQt9lp4C5m773XZCg IRNvjC70Hz2hbVypLHJrjZHD iY9awldon1kxcninZjAmMIXoZB y6IBj1DZArhDlnJbYlMHR3VbR6 ZQI8kRMsrH9wlPcbaouitW3o Oyc+M01nyD3qKTB7ONU3exixIT TespJqFS70CQ55A7OhMtkbkZVu bGU+QSNfusXxgPjzXC7oEzIn r6jkz7UeVEzhP5MhRUVdCClmAp t0MEEoZCA2xLE8bD0yOPPgKSmq j1I3mVY1Q6TfllPels7yf5ie FAQwNVaqP15piEOcn0W5FBMftM W4THLpwDpjLqDxmG71Exz+PGNv qZajk8OfEvjzs1hrg3jofUk8 OqFbGGKxrzRtvTcuQDN3b4RmVa 70L38pSJzpFYOrEQNhQSFhDUNv pQucdh8ecT4cFz3+PGNvbCB3 pAG0zG8aFUQxUqX4YVywH632Ix WitEScYtssi1zop5zpnAc9HwTi TRDtvjBesEkeTUF7c3KhFs04 Z93iVBmcOLKxWQNrJKAlXSUfoC onoj2syS3dZa4+NG9kd0lmrw74 gZ02rWU+YNTqYBR1kVomOMqh LWZmrR6wYTffYuC4KIAgZlTvpJ 77fWZwUPauTf0oqAuysHpiZC1f LHHhaxlth114VeLsi7uaYJGo sAOhZQaaGEW5R04ap8V5HBCzHC RlBPK4dFP5yI4gsRtfptclcJOl hKdrggYgzDnpHRctPIqrF174 IHRvcDsnPlBhdGllbnQgTmFtZT p9U9ExSfg6BOMhzYksNP1mtRIg DTkbJq2nlKaxdHfrWS2oZEZx fmjla699PfZsh9lnNZTiuJWkST vbIIL8I69if8I0BDJxVLWeLAI4 zMK8wY1wtBeuxxdzeQDvoFmz tkIkzGxuBMtwYKxvZ998DUIieR tfSjUxcuJwCHCxkEV2ST75VR28 qFHwy2N9aUW8M7XgJCZdkedk utrnyUB5VWKdVSFmvC45Kg2hmN txLl1sYUGoBGB6HESujXQwP7Qk rK7gAxBbAVVoPFIyC5XviEFw AUkuH529LPjxCrG4JOJuktPkY5 DnYKDhjAhoYtO0o8G2Bd9VS0R1 TH44MJ64aQDhx0U2kWA6B6Kf YFZftvncwdhwuAE7HNZgMEHljY 27Jh9tgBcfSn6xMNZqLWT7KWUx oRDqY4IziP4sIzZbOTReLTRc H3EpuHYeZThbQ373KIxcRvI4HK WuevUdA4PiACHvqNqdDoP9a3B9 Qn7IYIs4NC89UX64gKPot5U9 mBB0P2UqTVJkbyarqvewbPF8DQ XjGGYgqC31Cx2xwYuiHg6xFEQy CVW3EZGkkZNuW2TzpM2mMbAj FLApXIZfV7UreCHqTTqjA819NZ ctFyR4ZRCqnkVxN6WfHREqaZmr IeU2f0B6Yt3SUWGjZA52TJU7 dFZ6VT73LZ60R0UdJuiefVRvcR U+PHRhYmxlIHdpZHRoPScxMDAl PbUqxWqyFD1wGw1yGOFjHHSs eHsumSVhJuVgt4jaYVCyWXioWG 4cdWhgG6VjmKV6VXQlo5z2Te66 H09vS2XepPF+UYCvwRI3oTL9 sX9oRqTmQxE9QJjaD316AgDlwK ZqCalnh4tsm4yxkSn6OpQ5DELa ylBpcKolPBV0u2JnCj32A70f IHdpZHRoPSIxNSUiIHZhbGlnbj 9vbO2kOx1+QIVxqLY2fDJ0mA8z DeKxXoA2SHkrI114ZaGmgPFr Nbhha1ggi2topFd0LfBbLRFown EauWsyOFV9i3PqDn51Y3QruLsw t1SfYtd3bw67sGVjd6B6pNE3 F7YnCZOffrrsxPAliTqfGK0mQR EbaoerPWOygW4oOLDiX5e5AfNw AeG5HZovK1UniuT0AEIzcIHl FByfYMZ2A86rc7S6QKPfZVSfMK Y1nRM3bJ9bvWcxgfzuvLCzxDhv mnFbkLzwQIcaCBjtC962QUVj rWfxOVOheA8nTJYfgRXnpGqrYB 4wNTBpbjsnPlNURUlOLCBWSVJH GK0MNZIQMOC4X3ZzVoc4GAHo dWrpXS3atQKwODnnLe7vjFxunK lvGK2qWSNtcqefITXfiH1mBJEa pYDlbCycNK8sKOAhpydsf638 QwQoVTV4DVFppQXhU9EvoA7rPh LwODGmXGUqS6XbtCOpVHpzE200 LLrzPpU0HKIflnTcR5PpZMIk yKfzVnE2u5M7Ww9wFS7iMJ9yVG ziNY90IN96wRDoo1T4xBU6Z5Nv BGCmggaenrnvmHJ7TQTlOUUu mI58lNLoULgaKv2wx9I6t806OH HaXHHenM90Zl7goJhhHAMfoUHR bZ8uockxo3kfrxhjNgCcTDXx TBp8SQe8YNTlqEozHgGjRNS6Zj J4TON8aAPftE3tlKommvyjbG9y Oyc+ShbpSTKbsiL7S9HcPzx2 LUMddMduIW6wqRHlZVigEt1yaB pbhBdwQY8aOEKjcnsfAYRxaL3s XDCxzTYimUmfVU4vSKAwitfl s155WtZfPXV9IZJseWFmC4MlwY 0dSiZfHMYmNMHbD3ArhIXgMUsi O057CRuuCeZ4LSGcusEzH9Or IFXrjZjsPqC0h4E5Mu5JZC7KJM S4Y2MyOaj7GMJrjFzeRY9ifQWe VLeqMa8ikZdofKbgBS7nNBGb sutaPZJraE8dOATsdHOuyZlmAJ 5wUYKgvwtpy662XcMzZMA2JNLu tJHvT4JkgI0vZfNyXPXsRDMe I1XpzRHsLJznT535GXjjJsS0VL MirzUaP3LmDKHmvRowHkA4c3G4 Gx8SICnbjFU+BF76fd46B4Oz XoqySyp6TCPmVXE7zQT7yJ6aYK DtHIwgv0F4cMO4M8SokaQygk4o n7lpWRZiMYibU43rmJNgi4P4 DLFbbDL6YSEwdIxgXoWqoM07Nm c+XKYwvZbgm0YwAdbwb0xln8qb vNu4SeEmUWAlznOwmXjxYON2 t3ZaAi43B01mGBmbYAFcBYKfQJ OtLWKscKwgzu1rmY1jRp4+PGNv rQO6hLJ0vZ6sWsOvJvK9NYij Z865NtBypYExScvxr1ixp8eogF h1AjBzMCHomjTgmEzaXPT6c1Fm Yy33S9PxxJuvw1FdGfz3us21 aQFzg1U9qFM6N7WjNEPxwxsknG JhpRsyJQ3jTXYwfmooQLIfyV1k ANNyT5b8ZvLoRxZ6UWxcD1Dg eaT6WAZcdJHrTRCuyMNDcO0kzo dry8eudqxgSjGgUJGsXDs3TKw7 JGAyvWrrIsEwPTG6WdB0HLD2 nCJatX9dvPsjqytjiV4cOiz+UG u0g8vbwQDcSJ6ovLT2AN88AH65 fPViw9T8qWE9U2XzNKKozubx pphttOB2XUDmXSCkiE16Tt8scX ddJg6sZVWlSBP5XKWyrSPlT3Df aZ7pGbZyRTZkGBCbP8DcyIMk BTcwE390KOatYuH5JIZlbrMxG2 WpUGTbeVjiQzL2m7U3Hp0XXH58 YL95ZZ87jLDyt9R7mKA1Z4Qm LOZwrtggoskrlYX5JYGkDVHimY 45No5glBrsMv8nWJYfVPE4BHFk uLLiQ5VmjI5sQaHgXLYlFVOr M5NhmUUbBEipW599RChmVnX6QF DbojYrS8YjRCDesLxbDnW0w4X9 Ae7TRn89QY01EG89bZAwa5Z3 hDB0R7JxNFVdhauictfliOU8WF MoRINujD47Vm8irSfzRa1aAROe VPH7YJTojYBxI5EpuE5rFrBz XNWgHWOyL3XvgIDhNEmrN806IA hoMmH4LUEzbiXgG7OcOSZwfNui KiI0l5K6Bn8SNNuzkdj7J5Mu PjwvdHI+YI25ADMrFP38hGJlaI Eaz2jufBt5UdYsNIRjYOX1yVop XXfky4JcRQVvB83wmPUmr2Q5 IGN (more content not included)... [facility] Coding Summary HTMLBase 64 BcfmqodtTPx7gRl+PGhlYWQ+PE 5EVTDpE52yjASwzB9IF5cDSR9Q OIYMTJHOYO6GKJ5klDG0PTirW6 VybiAv NzyweHXrDV14CZu2AZC9eRyqAK nsdZ7riQWzE6m8SrYxST09eN46 IKdtGCJlGeU7DpEultaxmWFw X1swXoOoxAChBzd+PHRhYmxlIH hiOSNjAZztKLNtHoUtwTscBN5j Ri4cJODhAITxrRhpvYXwJwFq m6yuQCCxWIeqAA6fzChiK0InzZ J7YFWdl2w0Yb02mCA+PHRkIHN0 wIemSBpdf072JqXgq4xnXXM4 rRQwFJypRSC9L44lt0A2WOCmHS CvEHC5nUY1cY6aoDprdmqhP9Mq iVIjQxF7SJT1uVBttL7tkErl jnprzO0sIly+F42ABG9OLDUNSV 6DEsr3Y1FhPzziwPT+XU68AKYi WE21mVYzpKSgs7pcuWl7EnUi KUOzKRU9zOlzLGfww5ViGSNfN0 8ndQGey5K0QIYziIgpoGVoFnBa aHM3xJ2dITupjcbig4aaldcy Dmwjh8buek32zE81L17iJRbqMI DxIJJ5PQCwTXHkeAkgst0lrB5a Ii8+VUjfe1xgr0jncTz7PwIl NPRbxdJknKtcVNF7j9VvTp33B8 CtqCemp5OvMzb5te53rHPvf4M8 zHZ4GZrsKRTlgI8cWSehUfU3 TTJlHmYnfT89eNDvEYuxYa5hhM wnjBhoKF5lRJDvengvRMOvuR7c ZNQwwCSjxCjmZY7cTJRsqpbc q841ReDtQQV4VVAcmIDlM9BlcN 4lQeTaIVYzZWKxB7RmjQQbNKmp M798KJvmRwH0NVYeipVcE1Fa LHKeuOpgNtK8d5D6Yo2Ri8Jgty pmSSE8NKenBER3AuRyPgBqBtT3 I6PbVcs2EMZhmLhpEW9iS3Ep JHOhtddexkazgCW9ICExVUApwM 01oOZxCGrhQm5ac3S3g756GDUc MCZwiN72Oc4jeLgmPERpgBXM oN9fkrydx7lylseaAjVsKZTuJG h2SQx1JQYabLszDiFgSMV7SwR2 WKX8dIIgwM1okIffslhlxB3h Oyc+C27xyP9dASX4KMT6bggiFX GgchOrUJ10RQ93X4QzMzeitUJz bGU+BTZnolBfkAmxZM7jCnLr j0grv0ScSLuhZ8FuKERzJJjeZx m4EECgHYV4gOW7pM0pTFHlZNut o4A0lKF7F4KevyJckx9oj4hn HLQfCIraA99xxDByv5J3EGJiuH S0HWYovXxbRlUwmJ94Xmt+PGNv tQorp2CoGedne3okl3pqiHl9 TcAqQKWhomCjtKdwZFE9z3NxUc 78Y51jUSqoWJYpRQArLSEcYGTo dCihbl1ofR4cKg5+PGNvbCB3 qFT6kK2dMLTyDkV5SOjyX526Jq XncHWgHcncb6kap3njwZi1ZdKh PTYwphXwbSuvTYQ0w5MkIy77 F65wOAfmHXTwTYCtKTSeIJTwuO cddo1pyY5cEt4+CR6ul6wwhw43 eW66aEB+KAZrAZV7hFwoKAsn COMctY0tLOdzGxI1JSCjCjQzlZ 43rMDiMKlyNe3coVnmvJmoWY2p DWKeluoqs446IvJwb8geULWl aXDsSXhmHGE9A95fg6C0ZYPsPN LzBAX7lMQ6bI3qtKgdxdcygMFz lKrcogHusPynTQhuZCykK319 IHRvcDsnPlBhdGllbnQgTmFtZT u4O9CmPjt9GSRkaFhtMM5dtNUg MSrkMk6wwCzchLyySH1rQVKt lalwl280NaKfx2jyZEGhjJIlAY cqMNR8V67tx1O9ONCyRBWiUFJ3 xGY9gV6agNlwziktpRMrcRsw zcLtoLyuZGrfGAmkY827RELznP hhWeKwpwIkJSPapAD1CM12XO19 tHByy8M4kWW3W5JgSKFqvztq mjnlqHE2SSDqZPXenO81Hd5bbT inYt9zXLRpVXH6UWGepOQpZ0Tt bD1qFvDmDNEyXTVfY9EezYCs PYwzK355HDbpUzW7SGWnitYnS3 PiHDUjpCxeUqZ4h7E1Qd7IO9G1 DL85CS58pUQyg5A9lHV5I1Zy AZQcocemltdenKR5GKJoXUDxwI 98Yr5twFgcCh6rXOAxQOJ8BGRx uKLyI4SdbY3vHjZdQXNzQUCg E6NwbAJyAKhsM696CUvcVnS7UR GqmzBgE1MrBQWesCjyXhH9k4U2 Td7NKTe1ZR99HH23eDVis6A9 aJV2M5VrOUBtbqjjbsezpYS1KM GeWTIioM94Dg8wfSehVo6mFETf XVM6SUKieFIoR1QueY4bLfNj URDdSPHuE3VwqKHdVLvhC956FQ nfAoQ1AIMyucSsR7EjCIIscSna ErF6q0I2Jo0TAUNnJM24YNB3 cYX3WF29QF72D3QiUwjsnKXgaW U+PHRhYmxlIHdpZHRoPScxMDAl CjBraPseYC7pRu0jWYGcPAYf wMpfvBJeByYfq2rrXIDlONrzTE 1muLvfV0MtiBP0ROGee2u8Vs00 P00uH3UxfJQ+RVPhjEB2xRF7 jM2tShTxQbW3UOhaF935AmVehD FqVzagq0pzd7bezZj4EcC9YHAh alKavXtiICT2n2MaMn70E41d IHdpZHRoPSIxNSUiIHZhbGlnbj 5lkF1yQw6+HYAydJJ4rYE1kL3b TxLwMtP8KDsiB221VgEaaRVp Ymjep5rkm2yvrWy8FgPrPOCvvw TqgUavLON6m1NyUr39H6MakLvh k0ZuOaa1to21tWZsh4A2uRY4 W6MtNAEuvtzjqKAxqCxvXF2zNW EzifmxNIHmbQ3pHWXkG2g6YaSw NpH2IQuvA1BlhmR3EGHczLFz PDjhQIE8A51ri0P5FICwUGYeUG Q3yLY0zG3puVpgxswtxJLhbShm fgDhgCufTWdnQAfgG149QDRn uXozXAWyqH9wNYDaeIKsjMziFN 4wNTBpbjsnPlNURUlOLCBWSVJH OJ2JGZCHUCK4Q2VcPcf5ZAUk gTdqBW0juCZvREkfYf9cwGkviC vlOP2yIMMhpkfeTDZfgF4vRAYd iZHhlGzgAS2bGHZvszwnx260 XbTdVRY1FCBwaVTvV5OskI1iXz EzCXHxMPAiH4KsiYNrABrfD268 ULbkOeV7FNEitxIdE6RwIRKl xNycYxT9b1Y9Bv3uOE6uJK0wPI hlVT27WZ27fVYmo3Y2oYA7D7Qf FYLvupbplisjaLJ6SIKhPCDq yT82mEWyZCtyCx4kv5J3i748JH AhWKYuwV47Cx6hwAmwJNCrlKRH rR2bppnro5fswwmgLbOlJACp BAd3DXn6ISPosJrpGoKzJBP9Mt H9DMJ5uGBqxG2auMcntqgkrL6w Oyc+XqnsSGVhgqL2S8FoKzb7 GZFnzWzkCI3pfXUwUFqoMf3vdY ycsXpnXT3bEYGwoxyqFXUitI1n JRMweKXncMulWJ6yJYZrpiiu f264NcOvZBE9HODhwNTlQ9RoiD 2fUsKjYHNaNELhW1BmfCJtQPko E418WRivFqQ5DJQqviKcS0At WIHmpRpmFyG4u1U2Lb6DYF9FEX X9R8BoJoq1CICexZuuZV9lnHGx OVolDm3csOotiWflET9iKETu yyhiHYLhgQ4kYGIfsEIvwKhoGZ 0wSTIqpbrbe104WkOfNWW0QYCs jQZfS7QwpM8iUaRsELTaFPAl N4RdnPBjOAfqW347GHgcTwQ6CS HtvxAeV9VlQKCslEadQaK5k2F8 Nn5JmGQgD8UgE8e1B0DdOnjk dHI+SY67IIKxTL68aZLjcDBdl4 ekkUo2XaZxFLJxWTG6kXuuLZqo i6ZvLGDxC42ykDHoh6G4YBWt wWffyOKbFfRqbVQ6mY3jRYlpps kxq8nswxdtRusqg1sxym85rQ10 H21kKHaoHZPxMSWcELUsOYBb aDpeun6mfF3lAp6+EQHalBW6kO U6zB6sRbFpKoE0UTwnP036IaLo wUZfCadvj8utu2jwyXu7YoWa BTKbxqLxpRavMWQ5l8CdCe12Z2 9sIHdpZHRoPSIyMCUiIHZhbGln il1rxL9mNt2+KK6zn5wqrc81 xK79oKH+IKBgVJP3vUhqHCvoDL AwtW4mFWvwSyO7CXYfKuQzwL27 iTVgWIyvZi0nqBifuAwaLA0p JTTnabrbn777ZzGxc0fgIRAzmU AjQTscVOA4H95pw9E0DAAfDPOh HDG5vAE2nT6gtFidngpokWGy jTuxgwVvcPmhHTniHJjeW210DV HwtCeoZzZzgONzG0pbrcUIVK0l OjwvdGQ+PTWgSPT0mSksDIto KDPrmM3uYXQoF3e4YrGyTlZ0ZT rwB3YwfuD8KRBekCUeYKSfaOQA iY1lfphbe5lcvfxeKcWdVAYo JBy0ZCj2NWKsdOwfLyHyNWB8Zx F4MSH4pVYbpV4uvSliphtchJ1w Oyc+RklOOjwvdGQ+PHRkIHN0 dHukGUbuYYJzkF7yLIUiU3e7Ka UqYwF8XPusU7PpytN0CAVisFCk JBKtnPNLoM2mqdhmj4wrwooy YgAtOJXjIQb5AEx6TCMkvVinPr JyBMN8YuU3QGN3zIRbcD8elZwt dcogmX9pEeo+TVJOOjwvdGQ+ UHWpJHT1qZnyROblMVNcqC6wCJ VfI9e8BsUxEeE1EIzsG8RpouW8 BVVjvFOmDVQfaVDKsC6uyqir v4xtjywwRhXaLGPgBIl9PCk5TM LwdUboDkAkQWV7MsL5IEV3aLWz gX9tzAygnsqbaS1wSfu+UGF5 VBO8BD95XQ81Q9CaMsuxoCMdiR U+PHRhYmxlIHdpZHRoPScxMDAl HcTcqThvFN3vSd1sXGDqZYEa bGx (more content not included)... Normal [facility] CHLAMYDIA/GONOCOCCUS RAINER ( AB/URINE/PAPon 02-09-2022 Chlamydia trachomatis, RAINER Negative Normal Negative [facility] Comment on above: Performed By: #### R PRQ #### [facility] [address] [address] [address] Juan Antonio Ibarra Neisseria gonorrhoeae, RAINER Negative Normal Negative [facility] Comment on above: Performed By: #### R PRQ #### [facility] [address] [address] [address] Juan Antonio Ibarra AFP MATERNAL FOR SPINA BIFID Aon 02-08-2022 AFP MoM 1.41 Normal [facility] Comment on above: Performed By: #### A FPMAT #### [facility] [address] [address] [address] Juan Antonio Ibarra AFP Value 66.8 ng/mL Normal [facility] Comment on above: Performed By: #### A FPMAT #### [facility] [address] [address] [address] Juan Antonio Ibarra AFP, Serum for Spina Bifida Report Normal [facility] Comment on above: Performed By: #### A FPMAT #### [facility] [address] [address] [address] Juan Antonio Ibarra Comment Comment Normal [facility] Comment on above: Result Comment: Melchor Chaudhary, Ph.D., [facility] Director . References: Available Upon Request. . Multiples Of Median Cutoffs For AFP Elevations Briscoe 2.5 Black 2.8 IDD 2.0 Twins 4.5 Abbreviation Definitions IDD - Insulin Dep Diabetes OSBR - Open Spina Bifida Risk . For further inquiries contact [facility] at [phone]. . This test was developed and its performance characteristics determined by [facility]. It has not been cleared or approved by the Food and Drug Administration. Performed By: #### A FPMAT #### [facility] [address] [address] [address] Juan Antonio Ren Age Collection Date 18.3 weeks Normal [facility] Comment on above: Performed By: #### A FPMAT #### [facility] [address] [address] [address] Juan Antonio Ibarra Gestat, Age Based on LMP [facility] Comment on above: Result Comment: Reca lculations are not recommended when gestational dating by LMP and ultrasound are within 10 days. Performed By: #### A FPMAT #### [facility] [address] [place] [address] Dr. Juan Antonio Ibarra Insulin Dep Diabetes No Normal [facility] Comment on above: Performed By: #### A FPMAT #### [facility] [address] [address] [address] Juan Antonio Ibarra Interpretation Comment Normal [facility] Comment on above: Result Comment: Inte [...] Customer Services to discuss available options. The [employer] recommends amniocentesis be offered to women age 35 and older. Performed By: #### A FPMAT #### [facility] [address] [address] [address] Juan Antonio Ibarra [age] Normal [facility] Comment on above: Performed By: #### A FPMAT #### [facility] [address] [place] [address] Dr. Juan Antonio Ibarra Multiple Gestation No Normal [facility] Comment on above: Performed By: #### A FPMAT #### [facility] [address] [address] [address] Juan Antonio Ibarra OSBR Risk 1 [place] [address] Normal [facility] Comment on above: Performed By: #### A FPMAT #### [facility] [address] [address] [address] Juan Antonio Ibarra PDF . Normal [facility] Comment on above: Performed By: #### A FPMAT #### [facility] [address] [address] [address] Juan Antonio Ibarra Race Normal [facility] Comment on above: Performed By: #### A FPMAT #### [facility] [address] [place] [address] Dr. Juan Antonio Ibarra Test Results: Negative [facility] Comment on above: Performed By: #### A FPMAT #### [facility] [address] [place] [address] Dr. Juan Antonio Ibarra VAGINITIS/VAGINOSIS DNA PROB Abdirashid 02-08-2022 Bettye species Negative Normal Negative [facility] Comment on above: Performed By: #### A 1C #### [facility] [address] [place] [address] Dr. Juan Antonio Ibarra Gardnerella vaginalis Negative Normal Negative [facility] Comment on above: Performed By: #### A 1C #### [facility] [address] [place] [address] Dr. Juan Antonio Ibarra Trichomonas vaginalis Negative Normal Negative [facility] Comment on above: Performed By: #### A 1C #### [facility] [address] [place] [address] Dr. Juan Antonio Ibarra ABO and Rh group post transf usion reaction Nom (Bld)Ordered By: Eleazar Hess on 02-06-2022 Microscopic observation Gram stain Nom (Unsp spec) [facility] ED Clinical Summaryon 2021 ED Clinical Summary [facility] [address] [place] [address] [id number] ED Clinical Summary PERSON INFORMATION Name: ZULEIKA WYATT Age: 31 Years Sex: FEMALE : 1990 MRN: Acct#: Visit Reason: Rash; Medical problem - minor; POSS BODY INFECTION Arrival: 01/29/2022 20:27:46 Discharge: 01/29/2022 21:17:00 LOS: 000 00:50 Check In: 01/29/2022 20:27:46 Checkout:01/29/2022 21:17:00 Address: [address] [place] [address] [address] [facility] [address] PCP: Andie Stoddard PROVIDER INFORMATION Provider Role [...] follow-up with their family doctor or their DIRECTOR OF CATH LAB doctor. To this they agreed.. Health Status [...] (more content not included)... Normal [facility] ED Note - Physicianon 2021 ED [...] follow-up with their family doctor or their DIRECTOR OF CATH LAB doctor. To this they agreed.. Health Status [...] Once. Impression and Plan Diagnosis Sebaceous cyst ([id number] L72.3, Discharge, Medical) Plan Condition: Unchanged. Disposition: Discharged: time 01/29/2022 20:59:00. Prescriptions: Launch prescripti (more content not included)... Normal [facility] ED Patient Summaryon 022 ED Patient Summary [facility] - Emergency Department [address] [place] [address] PATIENT DISCHARGE INSTRUCTIONS Patient Information Name: ZULEIKA WYATT Age: 31 Years Date of : 1990 Reason For Visit: Rash; Medical problem - minor; POSS BODY INFECTION Arrival Time: 01/29/2022 20:27:46 Primary Care Physician: Andie Stoddard Attending Physician: Johnson Wright DO Comment: Visit Diagnosis: Diagnoses This Visit Medical problem - minor ([id number]) Rash ([id number]) Sebaceous cyst (L72.3) The Pharmacy at [facility] is open Saturday through Saturday from 9A [...] alcohol and/or drug addiction problems; contact the [facility] 07/01 Crisis Hotline -Text 4HSUU fu [id number]. If you received any narcotics, sedation, or [...] documents With: Address: When: Andie Wyatt [address] [id number] Business (1) Within 3 to 5 days Comments: home warm compresses clindamycin for antibioitic see your ob, or Dr Wyatt, for recheck apt ----at some point, this might have to be removed; this is not cancer, but a retention cyst of fat material; Return if very red and tender, or fever, vomiting worse You are welcomed to return anytime. Call Dr Wright, ext [phone], if any question patric WRIGHT< ER PHYSICIAN< Heike Jones Octavio Medication Information: The exam and treatment you received today in the [facility] were for an urgent problem and are not intended as complete care. It is important for you to follow up with a doctor, nurse practitioner, or physician?s assistant womens volleyball coach for ongoing care. If your symptoms become [...] can reach you if necessary. [facility] Emergency Department has provided you with a complete list of medications post discharge. Please inform your facilities officer/provider of your visit and for further instruction [...] (more content not included)... Normal [facility] TYPE AND SCREENon 12-30-2021 TYPE AND SCREEN Antibody Screen NEGA TIVE Blood Bank Notes performed by CV on 12/26/2021 ABO Rh Typing A Rh Positive Blood Bank Notes performed by CV on 12/26/2021 Normal [facility] Comment on above: Performed By: #### R UBIGG #### [facility] [address] [place] [address] [address] [address] Juan Antonio Ibarra HEP B SURFACE ANTIGEN SCREEN on 12-28-2021 HBsAg Screen Negative Normal Negative [facility] Comment on above: Performed By: #### H BSANS #### [facility] [address] [address] [address] Juan Antonio Ibarra HEPATITIS C VIRUS AB W/ REFL EX QUANTon 12-28-2021 HCV AB 0.2 s/co ratio Normal 0.0-0.9 [facility] Comment on above: Performed By: #### A 1C #### [facility] [address] [place] [address] Dr. Juan Antonio Ibarra Interpretation: Comment Normal [facility] Comment on above: Result Comment: Nega tive Not infected with HCV, unless recent infection is suspected or other evidence exists to indicate HCV infection. Performed By: #### A 1C #### [facility] [address] [place] [address] Dr. Juan Antonio Ibarra HIV 1 AND 2 WITH REFLEXon HIV Screen 4th Generation wRfx Non-Reactive Normal Non Reactive [facility] Comment on above: Result Comment: HIV Negative HIV-1/HIV-2 antibodies and HIV-1 p24 antigen were NOT detected. There is no laboratory evidence of HIV infection. Performed By: #### R UBIGG #### [facility] [address] [place] [address] Dr. Juan Antonio Ibarra RPR QUANTon 12-28-2021 Rapid Plasma Reagin, Quant Non-Reactive Normal NonRea<1:1 [facility] Comment on above: Result Comment: Plea se Note: This test does not meet current guidelines for screening and diagnosis of syphilis. This test is intended for following treatment response in patients being treated for syphilis infection. To screen for syphilis infection, a reflex cascade that includes both RPR and a treponema-specific assay should be utilized, such as Treponema pallidum (Syphilis) Screening [place] (124347) or Rapid Plasma Reagin (RPR) Test With Reflex to Quantitative RPR and Confirmatory Treponema pallidum Antibodies (142689). Performed By: #### R PRQ #### [facility] [address] [place] [address] Dr. Juan Antonio Ibarra RUBELLA AB IGGon 12-28-2021 Rubella Antibodies, IgG 3.48 index Normal Immune >0.99 [facility] Comment on above: Result Comment: Non- immune <0.90 Equivocal 0.90 - 0.99 Immune >0.99 Performed By: #### R UBIGG #### [facility] [address] [place] [address] Dr. Juan Antonio Ibarra CBC AUTO DIFFon 12-26-2021 BASO # 0.0 103/ul Normal 0.0-0.1 [facility] Comment on above: Performed By: #### A 1C #### [facility] [address] [place] [address] Dr. Juan Antonio Ibarra Basophils/100 WBC (Bld) 0.3 % Normal 0.2-2.0 [facility] Comment on above: Performed By: #### A 1C #### [facility] [address] [place] [address] Dr. Juan Antonio Ibarra EO # 0.0 103/ul Normal 0.0-0.7 [facility] Comment on above: Performed By: #### A 1C #### [facility] [address] [place] [address] Dr. Juan Antonio Ibarra Eosinophils/100 WBC (Bld) 0.4 % Critically low 0.9-7.0 [facility] Comment on above: Performed By: #### A 1C #### [facility] [address] [place] [address] Dr. Juan Antonio Ibarra Erythrocyte distribution width (RBC) [Ratio] 13.5 % Normal 11.0-15.0 [facility] Comment on above: Performed By: #### A 1C #### [facility] [address] [place] [address] Dr. Juan Antonio Ibarra Hematocrit (Bld) [Volume fraction] 38.9 % Normal 36.0-48.0 [facility] Comment on above: Performed By: #### A 1C #### [facility] [address] [place] [address] Dr. Juan Antonio Ibarra Hemoglobin (Bld) [Mass/Vol] 12.9 g/dL Normal 12.0-16.0 [facility] Comment on above: Performed By: #### A 1C #### [facility] [address] [place] [address] Dr. Juan Antonio Ibarra IG # 0.03 10e3/ul Normal 0.00-0.03 [facility] Comment on above: Performed By: #### A 1C #### [facility] [address] [place] [address] Dr. Juan Antonio Ibarra IG % 0.3 % Normal 0.0-0.5 [facility] Comment on above: Performed By: #### A 1C #### [facility] [address] [place] [place] [address] Dr. Juan Antonio Ibarra LYMPH # 1.4 103/ul Normal 1.2-3.8 [facility] Comment on above: Performed By: #### A 1C #### [facility] [address] [place] [address] Dr. Juan Antonio Ibarra Lymphocytes/100 WBC (Bld) 14.5 % Critically low 20.5-60.0 [facility] Comment on above: Performed By: #### A 1C #### [facility] [address] [place] [address] Dr. Juan Antonio Ibarra MANUAL DIFF REQ NO Normal [facility] Comment on above: Performed By: #### A 1C #### [facility] [address] [place] [address] Dr. Juan Antonio Ibarra MCH (RBC) [Entitic mass] 29.6 pg Normal 26.7-34.0 [facility] Comment on above: Performed By: #### A 1C #### [facility] [address] [place] [address] Dr. Juan Antonio Ibarra MCHC (RBC) [Mass/Vol] 33.2 g/dL Normal 29.9-35.2 [facility] Comment on above: Performed By: #### A 1C #### [facility] [address] [place] [address] Dr. Juan Antonio Ibarra MCV (RBC) [Entitic vol] 89.2 fL Normal 81.0-99.0 [facility] Comment on above: Performed By: #### A 1C #### [facility] [address] [place] [address] Dr. Juan Antonio Ibarra MONO # 0.5 103/ul Normal 0.3-0.8 [facility] Comment on above: Performed By: #### A 1C #### [facility] [address] [address] [address] Juan Antonio Ibarra Monocytes/100 WBC (Bld) 4.6 % Normal 1.7-12.0 [facility] Comment on above: Performed By: #### A 1C #### [facility] [address] [place] [address] Dr. Juan Antonio Ibarra NEUT # 7.7 103/ul Critically high 1.4-6.5 [facility] Comment on above: Performed By: #### A 1C #### [facility] [address] [place] [address] Dr. Juan Antonio Ibarra Neutrophils/100 WBC (Bld) 79.9 % Critically high 43.0-75.0 [facility] Comment on above: Performed By: #### A 1C #### [facility] [address] [place] [address] Dr. Juan Antonio Ibarra Platelet mean volume (Bld) [Entitic vol] 10.0 fL Normal 9.5-13.5 [facility] Comment on above: Performed By: #### A 1C #### [facility] [address] [place] [address] Dr. Juan Antonio Ibarra PLT 194 103/ul Normal 150-450 [facility] Comment on above: Performed By: #### A 1C #### [facility] [address] [place] [address] Dr. Juan Antonio Ibarra RBC 4.36 106/ul Normal 4.20-5.40 [facility] Comment on above: Performed By: #### A 1C #### [facility] [address] [place] [address] Dr. Juan Antonio Ibarra WBC 9.7 103/ul Normal 4.0-11.0 [facility] Comment on above: Performed By: #### A 1C #### [facility] [address] [place] [address] Dr. Juan Antonio Ibarra CULTURE URINEon 12-26-2021 CULTURE URINE Culture Observations : LIGHT GROWTH OF MIXED GENITAL ALONSO. NO POTENTIAL PATHOGENS SEEN. Normal [facility] Comment on above: Performed By: #### R UBIGG #### [facility] [address] [address] [address] Juan Antonio Ibarra GLYCOHEMOGLOBIN A1Con 2021 ADA RECOMMENDATION SEE BELOW Normal [facility] Comment on above: Result Comment: ADA RECOMMENDED LIMIT 4.0 - 6.0 ADA THERAPEUTIC TARGET < 7.0 ACTION SUGGESTED > 7.0 Performed By: #### A 1C #### [facility] [address] [address] [address] Juan Antonio Ibarra Glucose [Mass/Vol] 114 mg/dL Normal [facility] Comment on above: Performed By: #### A 1C #### [facility] [address] [address] [address] Juan Antonio Ibarra HbA1c (Bld) [Mass fraction] 5.6 % Normal 4.5-6.2 [facility] Comment on above: Performed By: #### A 1C #### [facility] [address] [address] [address] Juan Antonio Ibarra US PREG TVon [...] by: FELECIA GOLDMAN Date: 2021-12-07 16:59 Normal [facility] Coding Summaryon 11-21-2021 Coding Summary HTMLBase 64 VewgveveGYn3sQw+PGhlYWQ+PE 6IWKHbD04ghICprV0LX8uTEB2R XWZIBCIMWW2QCS8cbYG5VXxtK9 VybiAv DfijqPLxQH40GJn3EUH3gZlfMU tvnM9ioJWwR7d8TdNgDZ54dZ65 YVayJPItPsN1BlEneouzaKYh M6taDeMbyMPrQed+PHRhYmxlIH fmHFQpCZhvDIGxToHwkQrmTV1z Lr9hPJDmOVOodTpogRTvSgJd y4wkCPJqWBpgAT5mlGckT7CnxR Q3FBGdq3c4Xd90gVI+PHRkIHN0 yCreWNult410YhMqk4jkZLN0 lQYzMAqvVIC3B96wm7F3PTEbYY QwJLV2dXW5cZ4ilHqbajmlC9Su aPKpSxG6ZHI3mCOjmA7pfMbd yzhuzM6dCgx+I80OJS0IPSCHBV 6RNwo3I3DwYfpeoOK+DN99ACYn JU27oAXuoWQyk6mkgBw2ZjVe REBpYES2oGzqVZoge0HxZVNlD6 0jrGFda8G7AJEohAjzaXGqXdNd hXA9iB1nYHzdujnes1bilsio Naanh6mjvo80iO64R35tRKqtGU GzZLF2LKUqZDFerJzznp8ckO3z Ii8+NEdom5ghf0vyvWj7LvHj YVCskzXhcZmfOJY9b4CeFf98G1 SfoAtge4OtHyo5wr79cEXpv9J2 qXP7IRcmRYCwmE9pVIvyBrT4 CSTeFxCxdF66nMOnUFraQm8kwS tdxCzlPF0eOWNnsubhUSNllJ2u JRFkeXVtcUzxVC3fBZAvgutj e453HzDtNLJ8AJPgqZDgQ2OhxP 9wFfWtXZVaNGFsK3VpzQGtHNoo R827HHbbHjP0KQDwwgJjW1Pg IZAbgFefXyT9h2R4Pk2Qm4Jves rjCYO0DGjkYNM0QpN4NxToHpT8 A5KqMjp0FGEcdOjnFM0xC9Nm TGZhvurqgowyoUI9OSDyORBguD 74cIVmKDhkHh1gf6J9c815WDQo OVYweQ42Kr8klHahRJKrrCHE mH7tjjlky5oxrlzmPnOvNSKpYH n2EBy9VCGeaPzrJuXpUDB1DkR4 SXP7oZLcsM3cbQwioegduV6n Oyc+B89lyH8gPCP1LLR0qwulWU IwksLbBG77ZE32X3IpOmpiyJGe bGU+LTXwpzJqeExbUN9lXiGg h0cte6NtISfoI6JuPAYrCVxhNb l7UCMeLNZ4xEB9hC3kPVEpYLsd n6G6iZK0K1CytrZczv8ps9nh CKRoMUwlU04ydCKyp8Y7JLHcnU J5LRMlhMnlVjTlbP24Msd+PGNv lHnvf8OqOvwkv3lst0nymNe8 JeCePJGglnMvoEpoVND5n0FjAr 28K74uNNctTIMgLAMgAPBeZUTd gQuktk0khZ9eBf0+PGNvbCB3 xMR5xC1pTYXzBmT2PVnhC745St BbhHChYiwdu1znc0xtaLj0IaMv LYPeloSszJnrIOT4m1YyPd06 R35iCIsaSPEwJEReEUVjLIPauZ uvdn8reJ5iHc1+YQ3ub0jzjs51 kT46wAS+OTImAYX0cWmcKJrz KTFqjH7qNSbjDbY5PQOyOiFkdX 72yVDeCVfvUr8cpZaorAluSX4k NUVkdprlg764FcZbb1hgRPOe dTDmNZprHEK8K73xb0S7NVLrDN RoJUC3nBL3xJ4dcDouhmtssYOn nXiujdBzzZeyGBsjAScvO630 IHRvcDsnPlBhdGllbnQgTmFtZT s9N0DkMbi4VEFvtNfgOK3dsSNg GTcdSi0edUqppEkmMV4mAAGq hcrwh008XjOie9leJMMpoEJwSZ oqERU5X33as0I5YWJhYJOdTSX4 xRD7oJ4xgAurmalzgFIezWgc noFlwMqsUZixFQpdL978NHArlU vvKoPpzhYmBKBncBT0UM49KO34 mTYlc5G2bYC3D0JfYDRzkobc dzwzdJH0WSDuTISyjV08Ww4nrP riQo5dLNVpSSY0XFZsiGZmZ5Vy bC9jQgWeBSAoZOAlF6PeqSGm XMzlT125NTksTjY2SYCuzhJvM0 AeSKHtpNezSmR6v6U3Jw3XU4Q3 KH68BN99jGMpf7C0zID0B5Vy NLMffqxbbtmlzYN9TIIjMQBleF 28Rl0zsDluDk2tJXAcARH3XBXw uAGdI8XmmJ2wHeUjMAUyMVSu K0RjzJPyDXqcT023DJozWwZ2NP ZbtrUcT8JxTPDopKriErD1k1W7 Wl6FLPn1MD30DR92wNXfc3J1 rDA0I0DsSPCmsxudwnceqPA2WJ IiFRBzqM67Pu3qtZyaEg0zDEUe FEP1UYNsxTTkN4ZqtZ0gWjHy RVKwWKXdA5SmaMXeWAotZ072OO koQgR4UVErmkAjH1BeQKIimWno VsV1f9O0Sn4LRTJsME18WFX5 tNJ6VQ03GU77A2UqThxttPPwyH U+PHRhYmxlIHdpZHRoPScxMDAl SfYmuUcoGK4zIy7bEAYpMVJd pYqsoVYcSiZfr9zxBTYzLTbqZQ 0qlPfzB1BtsJW1VKUxs3a6Xd68 M53jX1YiaZT+XOXtgMI6nHA4 cK2pPaFiKgB7ZMrrB200QcGhnC RbUwoap5oon9mniJb6NdG1MLVy urZxkZqbIFM7m2WsBo00R45p IHdpZHRoPSIxNSUiIHZhbGlnbj 7qiE9hPj0+RXWenIL6gNB7zD1n DlXcIfP8VPqlA518UmJxuXQg Jtuab8zns9jioJr3GlBwBGJjoz TezDfhHFP2d7JdXx28O5QoyCcz k7NeTzt8al03dRJhy9D9cVO5 Y2YpGBTssuqhpSJjeEjoBL4pVI XnrizdGPEysD2nYWMuA2j4LuIa DrP1NWxjP9ZzkqJ7WXGuoHOh DVggRTP6Y15vh0H3IRHwBFTsEW X9dPO7rD1vqBsuablbuPShiCpz nhQclCiqVGwbITbvV968LDYc wTanMJVgqJ5pSMPznNTttCrgMB 4wNTBpbjsnPlNURUlOLCBWSVJH ZE9UOXBSRTM4C2RcTzz7NJTw vSkqXJ0ztYLlQIooDi0rpKhyiY kjJN0lLSFtfobwZIXkuN7tCKKl hAJmhBmiGE6hBWUcahdsj416 OmYoHOV1OWGhnISwU4LzlA4sKz JbCUHaGBAcD6DjeZTvNYopZ209 RDdkZaZ8YWXwoaXrW5CcQKTd wSaeKuY3a3V2Ua6hEM5rUI7lRX boCN02NQ38dTEzi2T5qGK2U5Pi JALzylgrewdfeFN0YZPtYNIe hA03tITbPCowCz9mt3Z9l144CF NlAHIcuC09Ev6dxJqlGIYooRNV tS2vcbrnn4tjgiacRuEfMYAm BRr7BSo6MAZeaUhgLsRmRGR3Yf W7MKE7gDDssJ5uvSaqqfmuwV0v Oyc+GnoyJOGuagA7A6VuGqr5 QNVfzKstIE2pqCNkFDudRy5ynW vaqMtpCU2sPAWummbyOMQwqO0m ZOZeeNIkmVgyYV9kGYRimhps u156RySvTDU7JMMovCGlT9TlsU 0pEvSzYOBhVNOdS0StoUDqGHwj J825AVehVkO2VTQmenOqT4Ai PDPzgLogWpE7q6H9Gp8QEV8SGC F7D9EjYke9CBTshJvvAM1gqFVg GSdrWr4gyCrxiAilWT8eWXCj fsjmVIBfcP3hGIYqyRLuaCiyBW 9qADSqgngeu951OsMqCTY6OXVp mLIoJ2ZpbS0wPkPhQITjCZPw B2QkuNSlXEccX557NLhxSrC1BE GcenQlP3ZcVGCebFfyPyO9l0A2 Of0VZSagjFI+EQ99uu34K7Jw BflqEmb6JEIrHXT5dSD0bO2bXG EzVYkcw5K0sQS5Z6ZomuBubh1p s8tkXOWbTJwbX54pmAUia0A0 KKFhhJZ8KVBmeMmqOdOcnW64Zu c+QOTxfRamh1YcRswov5xnf8eh eFp0BcUtSPPtaoFqmJljASQ3 b0HjGa55U87wHBlxVDBgFDYoXD JxMHZnyKzoge0zeE7pTs9+PGNv hCI4jOD7kU3sAfQnReN4KJpz P635HlIydGOuZtwir9ksm5dnyO o6SuSrCDPqphVujZreCAO6c3Nr Pa50K4NsnNrta5NjJap2dd65 aEYmi9C6zEW1F4LkLOPwakzcaT PjxCuqIU5bJEOpsegtBFApxO5d NPXrO9o8WuKgLgO7LHreK6Ez noM7CBHvwYXvJIZstUWJwE9uhz flk2tslzvvIqRqNBBvCBr8ARw4 TSPtuTmpNtEwJPW6FtZ9VAC4 rTNejO9seYheduyiwD3hGqr+UG f5q3hygVHkWZ8lwLQ0KR94AT80 cFJce1W8lPD5S2KmVSQzzdcr uqtxgLG9YZMoFFWahV82Sv9pcT tfHj2cYDGgVOT9STNacWOoK8Pm yF9pWcQeAOZaEGPtO1SmjGRb DJcaW165AJazWaW9MFLefzUmS0 EvPLHezAwwRfC1f8H6Yq0BOP82 IZ69NT08nPOzg4E4aPJ5J3Lb QEEiapjnklgekGU1NBKxXUHhtW 96Sd5toQpqNx1sDJSwHBO9OQIq sOKxP9SfkC8kAkJsHVHlUJRj F6UgjMZuWLziY183MXvcCdZ5NV WrxmKiS3RwUENhpFsiXeO9h9D9 Hs1ZZe54QM32UC95dWUpk2G6 hEC6U8LvFVOthidvsgqdeUS5SR DtDTVlaL66Cu3wuOeiVw0wGSHz FFE7OTSfvGGjN5UjdH8cYhHt WKTeQNMrF3LjpXCqZQbgR301BE ukFmR5YTTsnuDmK0KiYSHouEcy YoX5u7M0Zc8JXTxvoep1G6Ml PjwvdHI+HG38DXZvUG77qEMdeJ Tgn3nkpQw3DyWbAAEzQIS6kLgu KKyrs4TaFLIfN07gnVMro3H4 IGN (more content not included)... [facility] Coding Summary HTMLBase 64 MtpeucwfDUw9sXx+PGhlYWQ+PE 4SGPWtE19keVAlkN4EX0lKJZ6K NNBIVFJXIW3SUB7mpYQ4IGgtD5 VybiAv VmzerIRoYR54HVo9YUN6xTyoZZ ngsV7bmKYhF2m7AxEoBH60tD30 GBuvAPCcZqE0JrRpphwtfVAr B4ikAjDeeZCjOut+PHRhYmxlIH mtUXMpSAgyGQZzWhMrqFqkHF6h Bx1wAJWgSNGdrAlxsFIrQnCh c3mtYTNbJJofEI0ddLkxL6VqfD V8UJOte5d2Iz87pFX+PHRkIHN0 hKprHTjdh185ZkPuu3unFWK6 tGLcRUdpKEC9I82lg3W5EYNtKC TzWWD7rST1sJ3ovVgwlrxoP9Dw nNGoOhM2GRM6zWIxfM7zoDbg ltjrtK8xCoq+O75XSL6ECVFNIV 3OLbs8J5WxVsfevHK+PO84GKYn SX94pLQrvSEfw6pgrKr0IyDz TDToVTE9xYtkBFiwh7BoLBRfC9 3jyFFsl5R8OLBrrNhtmHRyJpKy zJP7kH4wREzlzldst0gkynem Vvwhf0wiwq14oB47V78uUUqsOM ToTUV8LBLqSNGahKacgi2maH0i Ii8+LOuav2oqs3cceMl5SmDx GNBkphWztZtpTFP4d3KzBw43U9 HtgQmfz7RbRop3my01jDEmm4P8 xAJ6JVmwOIAsbU5wINhqOqG6 YFXfVfPzoJ10lEKePPggQo2fkC aauQquGN2bKXFlahieROZmiT8h OXUiyDOvwXcyPG7vODRjypqv s789BdStXRD8FGUlzTDvM0TuuP 6bEoToIYGbHIUtA7HqkRNhGFpd R954LKgpJqO4UFTpqmDaL0Ty IVMmlCuxFkF6g5H8Cv6Pw2Mfly onCCJ1GXnaZWL6PuO5EuAoAnS8 F9QeIuz8PGMrwLpqYB7fO4Mg RTPhhdppuawglWT0TMFdDGRuwL 06aFXrZEbzJp6yb7A0c312CWPr LVBjvE24He7hpQwtTNWzbRVQ nX2vshoqn3bveocyKrEyVWQmIX z6XOm8DSDlnYcaSfLzZZZ3AnC2 MDX8aZJfuA2kyJpornmcpT7h Oyc+U93nsQ1aHQV5ZIH7ggmqBQ TjplAdFH03BG92V6TwQvpxpTBa bGU+PFQdplKtaHlsFH8pHuAd y1laq5EqKBmsT1FyHQKfUNviQk u4GHPhUAU0oFK1kG0pODFrPDuu w6I8gEE6E7ZbfeKsjf0vv1bz DFQoHVgkD89wdBZna1D3PTJcnJ D1FJTixJjeAiAzyN61Yoh+PGNv gPgob6VoMbxun9abr1sveGq8 QoTwUOYnvhScjGkqAXG3n9EuTj 63C28tFBkiLWXsQSWnTSEnVVWa uSetwl3gwK5vFl7+PGNvbCB3 nNI4mU7hYEZfZmD6SKmjL097Pw UbqTQoHfjum8kjv7puzFf9IuKu TESrfsAwuQahVQH7i8TuVl44 G44qHAfhVXTsWKQyIJEdOKVgqC zewr4oaN8iQw1+UK8fe8gzta71 xA94bKF+KOCgDPT1eObeLQkj VRVgtH0jSTwkHtC3SUDxMeKmiV 95oPIzIJcvKd6ylXxseFthJN3k QFGxhjvqu924OuBpi9jfUFXo iKQwJUvyEYY4W20lz4P9ZTExHF BtXHG1kNH7xR5syNempzjwyKAu mNzbeuXdrNxtBBciQNmdJ014 IHRvcDsnPlBhdGllbnQgTmFtZT g7I4BfPah9QYZtkMarNT6rgIQf ZKzpRm9xsJijbFojMO6sCOUm cmymy896MuDwn4qqABKryCOoLJ xvWGF0M80is4D7PQMuGWMeTOC5 qAJ0hE3dlIqnxtojoATsfZbn tdOsqGpdMHyfMIomS655XHHodT dkIlZfjmYkJTAlbTZ8PT69ZU10 pHZfm4H2wSE7A2AbOGIxkefb vnnlnTE9AFAkZJEvnI84Jk8jjI cjQz4pXTRdJEI4BOYqkNIjS1Tb fI8rUeFcHFBeZCJgM2OekRJa YTtyS797KUnzNnS3FJKyvbIyR3 KaSKSpqVsoGxU1x5P1Wy3FT8K6 PN53ZO31oWPhg4P7gMS3S2Xg BVJrfnasndaozTA5KVPvQWYyyC 29Tn6rnEtcUo6mPBUaFBU8HAFf jLIiS7BsnO6wLbVoAXYmIZFr O8FpmIKqRGnuZ671MQnxKaA0ZV QvpyFhA7TzSWMelIbgAtY1i0E9 Ua6QWXk1BS45MV97dCXeb9J6 iZC5S3HvGAXaynlkpghfiMO2IO DpPVOnwD49Jz7hmUkoEd0wMABw AAH1YQVueSUmO4NxwM0dOeYh UFIvUXUnZ4ShzBImOSzoA916MV slZsS0JBKzoqVoI9WcZOYydNbx XjC5l1R6Hb6TTLNsNU45ARZ3 iQU0JL85ZD63J7ZmJqhpkISpkD U+PHRhYmxlIHdpZHRoPScxMDAl AoTehKooNO9xIm7bYQAgTCHk qNzlyDRoTjLid7eyAVTrHNiaEQ 2eeGqaS0TmpNW9NYCkw9u1Bh05 O02fU8WxjWR+SEJfcDI4hXI2 vK9mMtSuQkY8HLrqB333SyKucG CmLvscs2mkt9nplDn7JeQ6ZYHq wsSdjAqbTOQ3x3HpFm68K02t IHdpZHRoPSIxNSUiIHZhbGlnbj 0caX5wYt1+MOEghJM9kKN8uR8z HjJuEoA3UCvtJ523LrXcaKKl Gkrtg6wmm2stmCq0TtWwRVAbos UesUwiWOR4j1ZjOx83G8QyuJuq y1NlUcm7rh18qLOey6G7gXO3 I3VdNKPbuatxiWHntVxmXH8bJZ HpnehsEVBujV2aZJGaG3s9LrUc ZdW6KXybE9ItydL5CDFrgBDa NSqeIMT5E89ic2Y6WTLxOCFyDH U1vET9tB2wkWrqbadekZIqwJcd xvGhuKteWBmeEZomF460QGNm xHklXUAcpS0xFYEszRWnqOqfUS 4wNTBpbjsnPlNURUlOLCBWSVJH OU4NXPZOKGD0N0VxMod8HXCk lWbgFB6yzUGvPKgdZj6pyIqioM kmVH7bEBWvadnbKSDwzY6aGGIh nLLdkKhkIP0qXCOcjohcf067 BeZhTDZ8TORpbKXqF5XzvU4bZe TyALIpQFYsV2AskVLxHNxpF342 FCntNpK7RREuryNmU5BqEQDm yEysXtW5c0R4Ra6rBZ1aFU5jEV gyCQ08GH55xVAdy9J7gNW8V6Ju MFRyobgzoudmdIX7SATqGYHy hN89oJEiPUxkHf5ll8Y7n336KL UqNINqwH28Oc3atEqfCMXukDBK yJ6zkonah4bvgyvoAaQdVGZd OOl7DCq0ROAuaRxlMvHqOKA8Fk J6ZRJ5xALutY9msQgtavuljN7g Oyc+ZwxvIZUwbaU4L3RvFmp8 ZWUzcEmwCB1meVScYOrqNl4eeT pakNanVN9bZNGaubklVCDlzC0z ZONhuJHthRqpCB9eKWJamuwj e902ZyQsZNO2CGEilKGxT2SdeO 0qZyFzPTTbKIJdN1WwqTKaPZid V528FFnbGqG9QHBiwzRwI1Oo FGTmeVevJvA2f2K1Bp4VJN2TQR M2K7FlJbd9PVJzxWrhAN4gsGRb LGrkSx9oqUcrpNtnAO1lIECx onpfXMLbaK2lDSDsxSJpkNhbJX 2dCGOmdehja277TnSlLGU2MYWn fDRaE4PxzR9qOvKyDBTvLHWo T6HheFFcTLugF679CPcfQzD1RF BjamDlG8RxRFUmnItvSlM9j0T8 Ut6BeZUhM1BvF2j5K9LmKdak dHI+XH09AZFeLA54gCPesTTdd9 ttiZm6TgExFEDyENI8tWdwBPur u8SlIUJtN85hoADfr4H1BUTn pGiquBBxZqFvdOU3sT5rUZkznj vyb3hwvuvzGfyeo7jcgh82wF12 O84aBOuhRYEwUDYbBEFsPGIx oDgwud9foE5ySd2+ZUYtmRE7hE A0uI6wBbNgGyZ0VLkmP573LwMw zFPwRxsay4mam3qnuOi5FrJa XJLwrdMomAwtATI8f1LnOl06D8 9sIHdpZHRoPSIyMCUiIHZhbGln sk7wqY5yWh3+JL5nu2nohf53 sN38pAK+OZJpUQN9jQrnSSuqHA OcvL8kKWgpLqV2UEVeReFdfI69 mBSnSDpxIt8abRipxGxmZE6a SIAeoeecm745BvWxx6lbVXRohK VnHHcsQET0K22co0B9MBBbXJFt KCT7hNV6vV8pmWpzrvngoPOc uZsfrrIjvSzlLCurLHlbZ791JO TqeBxbUpCfaKBhC7rbdrCORV1f OjwvdGQ+TAAxWNM0wNkjUMnu WWNxnA5fFMZqL7f2MxFaOzG0YG xoY5EtzpF7VSRgdPVvJSZfaTQO oF7kqqpax7lfbqjzBjUiYIUd OCx6ZRm1BUXczPvtVmWePZM5Aa Z4NVG5kMYquJ1hmOaaioronX4b Oyc+RklOOjwvdGQ+PHRkIHN0 pIsiUNbsCJWrtV4zSECiB1x1Ze IvEjU6WZthN4KuahX2QYGbgBSv TOGccGXJdT8pqhobg8lucbuv TrFbUEWyORv7CKl4KPIlfChyWg AbRXM1NaJ3QXS8kILezO1yyJzg uhdvpY9aXbu+TVJOOjwvdGQ+ ZUDrMEV2eImgBMixKCHwgV3jYD VxI2w2UvWuBzP0HRswH0BqeqJ8 KCJpwNMxRQKlfBQSmK3zqqfb v1zpwjroQaJlOJOnJTw7NWj2TZ BziQtwZlMnBRE9OpO6IOO6bIHe pP4spQuouxzzaD7cTyx+UGF5 NEV6EK92AV37H2VfOcrwgBKjfG U+PHRhYmxlIHdpZHRoPScxMDAl HlJltLfyAU0hNt7pRXVeBPDh bGx (more content not included)... Normal [facility] ED Clinical Summaryon 2021 ED Clinical Summary [facility] - Emergency Department [address] [place] [address] ED Clinical Summary PERSON INFORMATION Name: ZULEIKA WYATT Age: 31 Years Sex: FEMALE : 1990 MRN: Acct#: Visit Reason: Rib/trunk pain-swelling; ABD PAIN Arrival: 11/13/2021 16:30:24 Discharge: 11/13/2021 18:01:00 LOS: 000 01:31 Check In: 11/13/2021 16:30:24 Checkout:11/13/2021 18:01:00 Address: [address] [place] [address] [address] [facility] [address] PCP: Andie Stoddard PROVIDER INFORMATION Provider Role [...] With: Address: When: DIANA, CUONG [address] [place] [address] Within 1 to 2 days [...] results be sent to Dr. Ortiz, your DIRECTOR OF CATH LAB physician. She will contact his office tomorrow [...] Patient/family/caregiver verbalizes understanding of instructions given Comment: [facility] ED Note-Nursingon 11-13-2021 ED Note-Nursing pt [...] 6 with steady gait and no assistance. [facility] ED Patient Summaryon 022 ED Patient Summary [facility] - Emergency Department [address] [place] [address] PATIENT DISCHARGE INSTRUCTIONS Patient Information Name: ZULEIKA WYATT Age: 31 Years Date of : 1990 Reason For Visit: Rib/trunk pain-swelling; ABD PAIN Arrival Time: 11/13/2021 16:30:24 Primary Care Physician: Andie Stoddard Attending Physician: Gamaliel Wyman MD Comment: Visit Diagnosis: Diagnoses This Visit Elevated blood pressure reading (R03.0) History of abdominal pain (Z87.898) at early stage (Z34.90) Rib/trunk pain-swelling ([id number]) Prescription Information: If you have been given a prescription for narcotics, seek immediate medical attention if you have any difficulty breathing or any sudden status changes such as confusion and sleepiness. If you or anyone you know is experiencing suicidal thoughts, mental health, alcohol and/or drug addiction problems; contact the [facility] 07/01 Crisis Hotline -Text 4HNXZ to 261346. If you received any narcotics, sedation, or [...] legal documents With: Address: When: CUONG ORTIZ [address] [place], [place] [id number] Within 1 to 2 days Comments: Diagnosis [...] results be sent to Dr. Ortiz, your DIRECTOR OF CATH LAB physician. She will contact his office tomorrow [...] you received today in the [facility] Emergency Department were for an urgent problem and are not intended as complete care. It is important for you to follow up with a doctor, nurse practitioner, or physician?s assistant womens volleyball coach for ongoing care. If your symptoms become [...] can reach you if necessary. [facility] Emergency Department has provided you with a complete list of medications post discharge. Please inform your facilities officer/provider of your visit and for further instruction [...] (more content not included)... Normal [facility] hCG Quantitativeon 2 hCG Quantitative 64177.0 mIU/mL High 0.0-0.6 [facility] Comment on above: Order Comment: Lucy whitney call or fax results to Dr. Ortiz's office Result Comment: Resu lt confirmed by dilution Post-Menopausal Reference Range is: 0.1-11.6 mIU/mL Performed By: #### 7 [id number] #### [facility] (DEFAULT) [address] [place] [address] Coding Summary.on 12-19-2018 Coding Summary. CODING DATE: 019 [facility] STATUS: Left Against Medical Advice PAYOR: [...] Saved: 12/19/2018 10:35 am Normal [facility] ED Clinical Summaryon 2018 ED Clinical Summary (Inserted Image. Elena ble to display) [address] [address] ED Clinical Summary Person Information Name: ZULEIKA VILLALTA/[facility] Age: 28 Years : 1990 12:00 AM Sex: Female Language: PCP: Marital Status: Phone: [phone] Visit Id: Visit Reason: Test; MENSTRUAL PROBLEMS [...] 12/15/2018 5:58 PM 12/15/2018 5:58 PM ADDRESS: [address] [place] [address] [place] [id number] PHYS DOC NOTES: MEDICAL INFORMATION: Prescriptions Given: PATIENT EDUCATION INFORMATION: Instructions: Follow up: DIAGNOSIS: Normal [facility] ED Patient Education Noteon 12-15-2018 ED Patient Education Note Normal [facility] ED Patient Summaryon 019 ED Patient Summary (Inserted Image. Elena ble to display) [place] [id number] Patient Discharge Instructions Person Information Name: ZULEIKA VILLALTA Age: 28 Years Arrival Date: 12/15/2018 4:37 PM Discharge Diagnosis: Primary Care Physician: Provider Information Primary Provider: [facility] Person:None The exam and treatment you received in the Emergency Department were for an urgent problem and are not intended as complete care. It is important that you follow up with a doctor, nurse practitioner, or physician?s assistant womens volleyball coach for ongoing care. If your symptoms become [...] opioids can be used to help relieve dnytjqbb-rn-qfcoib pain and are often prescribed following a [...] be struggling with addiction, tell your health family day care provider and ask for guidance or call [facility]?S National Helpline at 0-730-472-KTFW. q Source: [place] Department of Health and Human Services/Center for Disease Control & Prevention [facility] Medications Given: Medication Dose Route No medications found. Medication Information: Comment: Pharmacy Information: Thank you for choosing [facility] Patient Education Materials: JADEN Jacome [place] , have received the following patient education materials/instructions and have verbalized understanding: Patient Education Materials: Follow-up Instructions: Prescriptions: Patient Signature __ Date Clinician/Nurse Signature Date 12/15/18 17:58:10 [facility] Progress Note-Nurseon 2018 Progress Note-Nurse [...] care of her daughter. Normal [facility] U BetaHcg Qualon 12-15-2018 HCG.beta subunit (U) [Moles/Vol] Negative Normal [facility] Comment on above: Performed By: #### 2 [id number] #### [facility] [address] [place] [address] UA With Cult Reflexon 2018 Bacteria LM Ql (Urine sed) TRACE Normal Trace [facility] Comment on above: Performed By: #### 2 [id number], [id number] #### [facility] [address] [place] [address] Bilirubin Ql (U) Negative Normal Negative [facility] Comment on above: Performed By: #### 2 [id number], [id number] #### [facility] [address] [place] [address] Clarity (U) CLEAR Normal Clear [facility] Comment on above: Performed By: #### 2 [id number], [id number] #### [facility] [address] [place] [address] Color (U) YELLOW Normal Yellow [facility] Comment on above: Performed By: #### 2 [id number], [id number] #### [facility] [address] [place] [address] Epithelial cells.squamous LM.HPF (Urine sed) [#/Area] 0-2 Normal 0-2 [facility] Comment on above: Performed By: #### 2 [id number], [id number] #### [facility] [address] [place] [address] Glucose Test strip (U) [Mass/Vol] Negative Normal Negative [facility] Comment on above: Performed By: #### 2 [id number], [id number] #### [facility] [address] [place] [address] Hemoglobin Ql (U) Negative Normal Negative [facility] Comment on above: Performed By: #### 2 [id number], [id number] #### [facility] [address] [place] [address] Ketones (U) [Mass/Vol] Negative Normal Negative [facility] Comment on above: Performed By: #### 2 [id number], [id number] #### [facility] [address] [place] [address] North.plasma/North .RBC (Bld) [Mass ratio] 0-3 Normal 0-3 [facility] Comment on above: Performed By: #### 2 [id number], [id number] #### [facility] [address] [place] [address] Nitrite Ql (U) Negative Normal Negative [facility] Comment on above: Performed By: #### 2 [id number], [id number] #### [facility] [address] [place] [address] pH (U) 6.5 [pH] 5.0-9.0 [facility] Comment on above: Performed By: #### 2 [id number], [id number] #### [facility] [address] [place] [address] Protein (U) [Mass/Vol] Negative Normal Negative [facility] Comment on above: Performed By: #### 2 [id number], [id number] #### [facility] [address] [place] [address] Specific gravity (U) [Rel density] 1.010 1.005-1.03 0 [facility] Comment on above: Performed By: #### 2 [id number], [id number] #### [facility] [address] [place] [address] UA Spec Desc Clean Catch Normal [facility] Comment on above: Performed By: #### 2 [id number], [id number] #### [facility] [address] [place] [address] Urobilinogen Qn (U) 0.2 {Pamela'U}/dL Normal 0.0-1.0 [facility] Comment on above: Performed By: #### 2 [id number], [id number] #### [facility] [address] [place] [address] WBC Auto Ql (U) Negative Normal Negative [facility] Comment on above: Performed By: #### 2 [id number], [id number] #### [facility] [address] [place] [address] WBC LM.HPF (Urine sed) [#/Area] 0-5 Normal 0-5 [facility] Comment on above: Performed By: #### 2 [id number], [id number] #### [facility] [address] [place] [address] Auto Diffon 12-12-2017 Basophils Auto #/vol (Bld) 0.1 E3/mcL Normal 0.0-0.2 [facility] Comment on above: Order Comment: Order Added by Discern Expert. Performed By: #### 2 977576 ####KADEN BairdFfcTugj9639 [place] [address] Basophils/100 WBC Auto (Bld) 0.9 % Normal 0.0-2.0 [facility] Comment on above: Order Comment: Order Added by Discern Expert. Performed By: #### 2 284234 ####KADEN BairdEheMxwv4249 [place] [address] Eos Absolute 0.0 E3/mcL Normal 0.0-0.7 [facility] Comment on above: Order Comment: Order Added by Discern Expert. Performed By: #### 2 596957 ####KADEN BairdYioMlib2582 [place] [address] Eosinophils/100 leukocytes 0.4 % Normal 0.0-11.0 [facility] Comment on above: Order Comment: Order Added by Discern Expert. Performed By: #### 2 232932 ####KADEN BairdEakXiib1884 [place] [address] Lymphocytes 1.4 E3/mcL Normal 1.2-3.4 [facility] Comment on above: Order Comment: Order Added by Discern Expert. Performed By: #### 2 048664 ####KADEN Luceroo[address] [place] [address] Lymphocytes/100 leukocytes 16.6 % Low 20.0-55.0 [facility] Comment on above: Order Comment: Order Added by Discern Expert. Performed By: #### 2 928835 ####KADEN [address] [place] [address] Preble Absolute 0.5 E3/mcL Normal 0.0-0.7 [facility] Comment on above: Order Comment: Order Added by Discern Expert. Performed By: #### 2 148731 ####KADEN [address] [place] [address] Monocytes/100 leukocytes 5.5 % Normal 0.0-10.0 [facility] Comment on above: Order Comment: Order Added by Discern Expert. Performed By: #### 2 234460 ####KADEN [address] [place] [address] Neutro Absolute 6.7 E3/mcL High 1.4-6.5 [facility] Comment on above: Order Comment: Order Added by Discern Expert. Performed By: #### 2 071504 ####KADEN [address] [place] [address] Neutro Auto 76.6 % High 37.0-75.0 [facility] Comment on above: Order Comment: Order Added by Discern Expert. Performed By: #### 2 764546 ####KADEN [address] [place] [address] CBC w/ Auto Diffon 8 Erythrocyte distribution width Auto Ratio (RBC) 15.0 % High 11.5-14.5 [facility] Comment on above: Performed By: #### 2 995324 ####KADEN [address] [place] [address] Erythrocytes (RBC) 4.94 E6/mcL Normal 3.90-5.40 [facility] Comment on above: Performed By: #### 2 528749 ####KADEN [address] [place] [address] Hematocrit (HCT) 40.0 % Normal 36.0-48.0 [facility] Comment on above: Performed By: #### 2 847760 ####KADEN [address] [place] [address] Hemoglobin mass conc (Bld) 13.0 g/dL Normal 12.0-16.0 [facility] Comment on above: Performed By: #### 2 452740 ####KADEN [address] [place] [address] MCH 26.2 pg Low 27.0-31.0 [facility] Comment on above: Performed By: #### 2 992564 ####KADEN [address] [place] [address] MCHC mass conc (RBC) 32.4 g/dL Low 33.0-37.0 [facility] Comment on above: Performed By: #### 2 939581 ####KADEN [address] [place] [address] MCV 81.0 fL Normal 78.0-100.0 [facility] Comment on above: Performed By: #### 2 539533 ####KADEN [address] [place] [address] Platelet mean volume (PMV) 7.5 fL Normal 7.4-11.0 [facility] Comment on above: Performed By: #### 2 094347 ####KADEN [address] [place] [address] Platelets 347 E3/mcL Normal 130-400 [facility] Comment on above: Performed By: #### 2 048625 ####KADEN [address] [place] [address] WBC (Leukocytes) 8.7 E3/mcL Normal 3.6-11.0 [facility] Comment on above: Performed By: #### 2 976062 ####KADEN [address] [place] [address] CMPon 12-12-2017 Alanine aminotransferase (ALT) 14 Int._Unit/L Normal 10-40 [facility] Comment on above: Performed By: #### 2 748628 ####KADEN [address] [place] [address] Albumin 3.8 g/dL Normal 3.2-5.0 [facility] Comment on above: Performed By: #### 2 852920 ####KADEN [address] [place] [address] Albumin/Globulin Ratio 1.0 {ratio} Low 1.1-1.9 [facility] Comment on above: Performed By: #### 2 879843 ####KADEN [address] [place] [address] Alk Phos 75 Int._Unit/L Normal 42-121 [facility] Comment on above: Performed By: #### 2 421977 ####KADEN [address] [place] [address] Aspartate aminotransferase (AST) 18 Int._Unit/L Normal 10-42 [facility] Comment on above: Performed By: #### 2 497020 ####KADEN [address] [place] [address] Bili Total 1.0 mg/dL Normal 0.2-1.0 [facility] Comment on above: Performed By: #### 2 952602 ####KADEN [address] [place] [address] BUN/Creatinine Ratio 12.5 ratio Normal 5.4-30.0 [facility] Comment on above: Performed By: #### 2 892222 ####KADEN uLceroo1025 [place] [address] Creatinine 0.8 mg/dL Normal 0.6-1.3 [facility] Comment on above: Performed By: #### 2 096501 ####KADEN [address] [place] [address] Globulin 3.8 g/dL Normal 2.0-4.0 [facility] Comment on above: Performed By: #### 2 756914 ####KADNE [address] [place] [address] Protein 7.6 g/dL Normal 6.4-8.3 [facility] Comment on above: Performed By: #### 2 485336 ####KADEN [address] [place] [address] Urea nitrogen 10 mg/dL Normal 7-18 [facility] Comment on above: Performed By: #### 2 423318 ####KADEN [address] [place] [address] Calcium 9.3 mg/dL Normal 8.4-10.2 [facility] Comment on above: Performed By: #### 2 389631 ####KADEN [address] [place] [address] Chloride 105 mmol/L Normal 98-107 [facility] Comment on above: Performed By: #### 2 223760 ####KADEN [address] [place] [address] CO2 25.1 mmol/L Normal 24.0-30.0 [facility] Comment on above: Performed By: #### 2 988144 ####KADEN UzjEosu5943 [place] [address] Glucose mass conc 101 mg/dL High 70-99 [facility] Comment on above: Performed By: #### 2 499803 ####KADEN NsjHyed9491 [place] [address] Potassium molar conc 3.4 mmol/L Low 3.5-5.1 [facility] Comment on above: Performed By: #### 2 512574 ####KADEN RbyPmkz4930 [place] [address] Sodium 140 mmol/L Normal 136-145 [facility] Comment on above: Performed By: #### 2 529090 ####KADEN [address] [place] [address] Lipase Levelon 12-12-2017 Lipase Lvl 30 U/L Normal 8-57 [facility] Comment on above: Performed By: #### 2 469485 ####KADEN [address] [place] [address] UA Completeon 12-12-2017 UA Blood 3+ Normal Negative [facility] Comment on above: Performed By: #### 2 204896 ####KADEN [address] [place] [address] UA Bacteria Trace Abnormal None [facility] Comment on above: Performed By: #### 2 770027 ####KADEN [address] [place] [address] UA Clarity SltCloudy Abnormal Clear [facility] Comment on above: Performed By: #### 2 850670 ####KADEN ZotLjxw3956 [place] [address] UA Hyal Cast 0-2 Normal 0-2 [facility] Comment on above: Performed By: #### 2 128620 ####KADEN YnmGggq1862 [place] [address] UA Leuk Est 3+ Abnormal Negative [facility] Comment on above: Performed By: #### 2 990795 ####KADEN PszNrzm55[address] [place] [address] UA Mucous Many Abnormal Trace [facility] Comment on above: Performed By: #### 2 161958 ####KADEN VucVlgv5[address] [place] [address] UA Nitrite Negative Normal Negative [facility] Comment on above: Performed By: #### 2 886755 ####KADEN YbbKqxc2443 [place] [address] UA pH 5.0 Normal 4.6-8.0 [facility] Comment on above: Performed By: #### 2 335297 ####KADEN [address] [place] [address] UA Protein 1+ Abnormal Negative [facility] Comment on above: Performed By: #### 2 176529 ####KADEN UejBzpn3363 [place] [address] UA Spec Grav 1.026 Normal 1.003-1.03 0 [facility] Comment on above: Performed By: #### 2 833946 ####KADEN AbiXdnn1576 [place] [address] UA Squam Epithelial 0-5 Normal 0-5 [facility] Comment on above: Performed By: #### 2 922918 ####KADEN RhmNlil[address] [place] [address] UA Urobilinogen 2.0 mg/dL Abnormal [facility] Comment on above: Performed By: #### 2 738786 ####KADEN BairdMlhBzap2694 [place] [address] UA WBC >50 Abnormal 0-5 [facility] Comment on above: Performed By: #### 2 397200 ####KADEN BairdWqiVprb8512 [place] [address] Urine, color Yellow Normal Yellow [facility] Comment on above: Performed By: #### 2 565193 ####KADEN BairdOjeGarj2790 [place] [address] Urine, erythrocytes 20-50 Abnormal 0-3 [facility] Comment on above: Performed By: #### 2 052733 ####KADEN [address] [place] [address] Urine, glucose Negative Normal Negative [facility] Comment on above: Performed By: #### 2 109787 ####KADEN [address] [place] [address] Urine, ketones presence Trace Normal [facility] Comment on above: Performed By: #### 2 085934 ####KADEN BairdOpcDseg9922 [place] [address] Urine, urobilinogen Negative Normal Negative [facility] Comment on above: Performed By: #### 2 250920 ####KADEN BairdUldPqxl0890 [place] [address] eGFRon 12-12-2017 eGFR AA >60 Normal [facility] Comment on above: Order Comment: Order Added by Discern Expert. Performed By: #### 2 285521 ####KADEN BairdLhuNqqh5939 [place] [address] eGFR (non-black) mL/min/{1.73_m2} Normal [facility] Comment on above: Order Comment: Order Added by Discern Expert. Performed By: #### 2 769449 ####KADEN BairdUxmWycs5116 [place] [address] HISTORY PHYSICALon 8 HISTORY PHYSICAL HNO ID: [id number] thor: Clara Olivia WolfeService: Maternal MedicineAuthor Type: PhysicianType: HANDPFiled: 12/02/2017 9:04 AMNote Text:STANDARD [facility] DOCUMENTDISCHARGE SUMMARYPatient Name: Zuleika Gtz Date: 11/30/2017 [...] tabletFuture Appointments:Follow up in 4 weeks with provider.Clraa Jama, DO Normal [facility] PROGRESSon 12-02-2017 PROGRESS HNO ID: [id number] thor: Marie Lema (Res) LendeService: ObstetricsAuthor Type: [...] with more than 50% of the total xefa-hm-jnrgkbbz of the visit in counseling / coordination [...] decreasing.Ambulating without difficulty.OBJECTIVE:PHYSI EGN EXAM:Heart: RR, S1, J5Cccsf: clear to auscultationAbdomen: Soft Bowel sounds present [...] SOCIAL WORKon 12-02-2017 SOCIAL WORK HNO ID: [id number] thor: Meredith Jackson (Sw)oService: Social WorkAuthor Type: Social WorkerType: Social WorkFiled: 12/02/2017 12:25 PMNote Text:SOCIAL WORK CONSULT NOTESERVICE DATE: 12/02/2017SERVICE TIME: 1015Referred by: Jose for visit:Maternal/ - adjustment to conditionLiving Arrangement: HomeLives With: PartnerFinancial Resources: DisabledPrimary Contact:Extended Emergency Contact Information DARRELL BRANCH IIPrcape fear/harnett healthadelaida Emergency Contact: No,ContactRelation: OtherSupportive: YesOther Important Patient [...] [address] [facility]).Per pt and FOB, all needed baby supplies and equipment are at the [facility] and a nursery has been set up.Per pt, name of baby girl is Martha Branch.Pt states she is on SSI and WIC.Pt shares that she is in ongoing counseling at [facility] in [place] and has appointments 2 x per month.Discussed with pt and FOB signs and sx of depression; safe babysleep and discussed ways to deal with crying infant. Pt again states sheis going to rely on her support system.No additional issues identified at this time. Encouraged pt and FOB toutilize services through [facility]. Providedcontact information.Outcome/Recomm endations:[facility]istance through [facility]ENTERime spent (minutes): 60SIGNATURE: CARLA Goncalves PATIENT NAME: Zuleika Hernandez: December 02, 2017 : 11:10 AM PAGER/CONTACT#: Debo [facility] ANES INTRAOPon 12-01-2017 ANES INTRAOP HNO ID: [id number] thor: Terrance Lockhartervice: AnesthesiologyAuthor Type: Nurse AnesthetistType: Anesthesia IntraOpFiled: 12/01/2017 9:41 AMNote Text:ANALGESIA PROGRESS RECORDCATHETER REMOVAL/END OF CASESERVICE DATE: 12/01/2017REMOVAL DATE AND TIME: 11/30/2017, 1953DELIVERY DATE AND TIME: 11/30/2017 at 5:49 PMCATHETER REMOVAL:Catheter Removal: [facility]ITALMiky Nursing noteSIGNATURE: Terrance Contreras APRN.CRNA PATIENT NAME: Zuleika Hernandez: December 01, 2017 : 9:40 AM PAGER/CONTACT #: Debo [facility] ANES Keke 12-01-2017 ANES POST HNO ID: [id number] thor: Terrance Leblanc) JohanngService: AnesthesiologyAuthor Type: Nurse [...] [facility] PRO[facility]ESS[facility] 12-01-2017 PROGRESS HNO ID: [id number] thor: Marie Lema (Joaquín) LendeService: ObstetricsAuthor Type: [...] decreasing.Ambulating without difficulty.OBJECTIVE:PHYSI GEN EXAM:Heart: RR, S1, Y1Ydgsc: clear to auscultationAbdomen: Soft Bowel sounds present [...] 2017 ABO group Nom (Bld) A Normal [facility] Comment on above: Performed By: #### A JESSIE #### [facility] [address] [place] [address] RH Type Positive Normal [facility] Comment on above: Performed By: #### A JESSIE #### [place] [address] ANES PREOPon 11-30-2017 ANES PREOP HNO ID: [id number] thor: Aaron Leblanc) EarleyService: AnesthesiologyAuthor Type: Nurse [...] of Sleep Apnea: DeniesHematocritDate Value Ref Range Oeuqrs5711/30/2017 32.3 (L) 34.1 - 44.9 % Final Platelet CountDate Value Ref Range Dvhqqr6011/30/2017 193 182 - 369 thou/cmm Final Vitals: [...] as needed. Disp: Rfl:Inpatient medications reviewed in [facility].I have interviewed and examined the patient. I have reviewed the medicalrecord , pertinent consults and/or the pre-anesthesia evaluation,pertinent labs, and test results.Significant changes in the patient's condition since the History andPhysical, not otherwise documented in primary service progress notes: [facility] contains updated information obtained within 48 hours ofSurgery/Procedure.SIGNAT URE: Hema Cuellar APRN.CRNA PATIENT NAME: Zuleika LambATE: November 30, 2017 : 12:13 PM : 1990 Normal [facility] Auto Diffon 11-30-2017 Basophils Auto #/vol (Bld) 0.1 E3/mcL Normal 0.0-0.2 [facility] Comment on above: Order Comment: Order Added by Discern Expert. Performed By: #### 2 020536 ####KADEN BairdCdnQfem6493 [place] [address] Basophils/100 WBC Auto (Bld) 0.9 % Normal 0.0-2.0 [facility] Comment on above: Order Comment: Order Added by Discern Expert. Performed By: #### 2 314628 ####KADEN BairdJivOslv8353 [place] [address] Eos Absolute 0.1 E3/mcL Normal 0.0-0.7 [facility] Comment on above: Order Comment: Order Added by Discern Expert. Performed By: #### 2 179093 ####KADEN BairdNzhMbrf0884 [place] [address] Eosinophils/100 leukocytes 1.0 % Normal 0.0-11.0 [facility] Comment on above: Order Comment: Order Added by Discern Expert. Performed By: #### 2 271539 ####KADEN BairdXnbJhre9674 [place] [address] Lymphocytes 2.0 E3/mcL Normal 1.2-3.4 [facility] Comment on above: Order Comment: Order Added by Discern Expert. Performed By: #### 2 583188 ####KADEN BairdNftBlri3256 [place] [address] Lymphocytes/100 leukocytes 22.1 % Normal 20.0-55.0 [facility] Comment on above: Order Comment: Order Added by Discern Expert. Performed By: #### 2 318919 ####KADEN BairdJloQwts1013 [place] [address] Preble Absolute 0.7 E3/mcL Normal 0.0-0.7 [facility] Comment on above: Order Comment: Order Added by Discern Expert. Performed By: #### 2 097574 ####KADEN BairdPhbExyv1875 [place] [address] Monocytes/100 leukocytes 7.5 % Normal 0.0-10.0 [facility] Comment on above: Order Comment: Order Added by Discern Expert. Performed By: #### 2 666129 ####KADEN [address] [place] [address] Neutro Absolute 6.1 E3/mcL Normal 1.4-6.5 [facility] Comment on above: Order Comment: Order Added by Discern Expert. Performed By: #### 2 731498 ####KADEN BairdKzwGgft6028 [place] [address] Neutro Auto 68.5 % Normal 37.0-75.0 [facility] Comment on above: Order Comment: Order Added by Discern Expert. Performed By: #### 2 158576 ####KADEN [address] [place] [address] CBC w/ Auto Diffon 8 Erythrocyte distribution width Auto Ratio (RBC) 14.3 % Normal 11.5-14.5 [facility] Comment on above: Performed By: #### 2 042495 ####KADEN BairdXcrCvng5848 [place] [address] Erythrocytes (RBC) 4.34 E6/mcL Normal 3.90-5.40 [facility] Comment on above: Performed By: #### 2 559777 ####KADEN BairdRlcZzfr2639 [place] [address] Hematocrit (HCT) 35.1 % Low 36.0-48.0 [facility] Comment on above: Performed By: #### 2 445922 ####KADEN BairdXylWgya9035 [place] [address] Hemoglobin mass conc (Bld) 11.6 g/dL Low 12.0-16.0 [facility] Comment on above: Performed By: #### 2 653021 ####KADEN CijCnef1706 [place] [address] MCH 26.6 pg Low 27.0-31.0 [facility] Comment on above: Performed By: #### 2 383287 ####KADEN BairdQfyIocs6634 [place] [address] MCHC mass conc (RBC) 32.9 g/dL Low 33.0-37.0 [facility] Comment on above: Performed By: #### 2 332332 ####KADEN [address] [place] [address] MCV 80.9 fL Normal 78.0-100.0 [facility] Comment on above: Performed By: #### 2 522080 ####KADEN [address] [place] [address] Platelet mean volume (PMV) 7.6 fL Normal 7.4-11.0 [facility] Comment on above: Performed By: #### 2 226398 ####KADEN [address] [place] [address] Platelets 217 E3/mcL Normal 130-400 [facility] Comment on above: Performed By: #### 2 436681 ####KADEN [address] [place] [address] WBC (Leukocytes) 8.8 E3/mcL Normal 3.6-11.0 [facility] Comment on above: Performed By: #### 2 117700 ####KADEN [address] [place] [address] CONSULTon 11-30-2017 CONSULT HNO ID: [id number] thor: Marie Lema (Res) LendeService: ObstetricsAuthor Type: [...] T0 L0 SAB1 TAB0 Ectopic0 Multiple0 Live Jvuypx4Ylke of Baby 1: Not recorded Date: 2014 [...] pupils equal, no thyromegalyLungs: clearHeart: RR, S1, Z1Qhvzthp: soft, nontender, no massesUterus: soft, NTExtremities: 1+ [...] Epi prn4. FB soon5. [place] [address]. anomalies- prominent cisterna magna, bilateral periventrcularnodular heterotopia, [...] EF 55%.10. H/o maternal clubfoot-s/p repair as rqtofp66. H/o tobacco abuseSigned out to [facility] for deliveryDr. Amado reviewed with Dr. MaldonadoSIGNATURE: Marie Hassan DO PATIENT NAME: Zuleika LambATE: November 30, 2017 : 6:49 AM PAGER/CONTACT #: [phone] Normal [facility] HISTORY PHYSICALon 8 HISTORY PHYSICAL HNO ID: [id number] thor: Marie Lema (Res) JabiereService: ObstetricsAuthor Type: [...] T0 L0 SAB1 TAB0 Ectopic0 Multiple0 Live Jdlyef7Whhf of Baby 1: Not recorded Date: 2014 [...] pupils equal, no thyromegalyLungs: clearHeart: RR, S1, E5Cvfmrvp: soft, nontender, no massesUterus: soft, NTExtremities: 1+ [...] Epi prn4. FB soon5. [place] [address]. anomalies- prominent cisterna magna, bilateral periventrcularnodular heterotopia, [...] EF 55%.10. H/o maternal clubfoot-s/p repair as fapwly03. H/o tobacco abuseSigned out to [facility] for deliveryD/w Dr. AmadoSIGNATURE: Marie Hassan DO PATIENT NAME: Zuleika LambATE: November 30, 2017 : 6:49 AM PAGER/CONTACT #: [phone] Normal [facility] Hemogramon 11-30-2017 Erythrocyte distribution width Ratio (RBC) 13.6 % Normal 11.7-14.4 [facility] Comment on above: Performed By: #### C BC1 #### [facility] [address] [place], [place] [address] Hematocrit Volume Fraction (Bld) 32.3 % Low 34.1-44.9 [facility] Comment on above: Performed By: #### C BC1 #### [facility] [address] [place] [address] Hemoglobin mass conc (Bld) 10.4 g/dL Low 11.2-15.7 [facility] Comment on above: Performed By: #### C BC1 #### [facility] [address] [place] [address] MCH Entitic mass (RBC) 26.4 pg Normal 25.6-32.2 [facility] Comment on above: Performed By: #### C BC1 #### [facility] [address] [place] [address] MCHC mass conc (RBC) 32.2 % Normal 31.6-34.8 [facility] Comment on above: Performed By: #### C BC1 #### [facility] [address] [place] [address] MCV Entitic volume (RBC) 82.0 fL Normal 79.4-94.8 [facility] Comment on above: Performed By: #### C BC1 #### [facility] [address] [place] [address] Platelet mean volume Entitic volume (Bld) 9.9 fL Normal 9.4-12.3 [facility] Comment on above: Performed By: #### C BC1 #### [facility] [address] [place] [address] Platelets #/vol (Bld) 193 thou/cmm Normal 182-369 [facility] [place] Comment on above: Performed By: #### C BC1 #### [facility] [address] [place] [address] RBC #/vol (Bld) 3.94 mil/cmm Normal 3.93-5.22 [facility] Comment on above: Performed By: #### C BC1 #### [facility] [address] [place] [address] RDW SD 40.6 fl Normal 36.4-46.3 [facility] Comment on above: Performed By: #### C BC1 #### [facility] [address] [place] [address] WBC #/vol (Bld) 9.85 thou/cmm Normal 3.98-10.04 [facility] Comment on above: Performed By: #### C BC1 #### [facility] [address] [place] [address] LD NOTEon 11-30-2017 LD NOTE HNO ID: [id number] thor: Marie Lema (Res) LendeService: ObstetricsAuthor Type: ResidentType: LANDD Delivery NoteFiled: 11/30/2017 6:19 PMNote Text: -------Attestation signed by Serenity Maldonado MD at 12/01/2017 6:04 PMI saw and evaluated the patient. I reviewed the resident's note and agree,except that patient seen by [facility] (patient has FAS, fetus with multipleanomlaies) service, consult placed to [facility] for management of labor AND delivery.Essential primip presented at 39w with PROM, had Pugh balloon AND Pitocin foraugmentaion. Late in labor noted tachycardia that improved with IVFB ANDTylenol (mother rico had elevated temp but felt warm). [facility] [place] [facility] to awaiting NICU team for evaluation (was allowed tohave delivery to abdomen AND 30 sec delay for cord clamping). Pushed well AND hadSVD of a viable female infant (APGARS 8,9, weight of 3200g/7#1oz) over intactperineum. Uterus slightly boggy after delivery, responded to massage AND Pitocininfusion, EBL ~500cc.Serenity Maldonado MD ----OBSTETRICSDELIVERY SUMMARY - VAGINAL DELIVERYGestational Age at Delivery: 11x1vYnmtxqv Date: 11/30/2017Service Time: 1800Keegan, Bg Zuleika Dillard [[id number]]Labor EventsRupture Date: 11/30/17Rupture Time: 224Rupture Type: PROMFluid [...] 11/30/2017 5:55 PMRemoval: SpontaneousAppearance: IntactAnesthesia:Method: EpiduralMeasurements, Apgars:Code [place] Called: YesType of Code [place] Team Needed: PlannedA digital sweep of the [...] NURSING PROGon 11-30-2017 NURSING PROG HNO ID: [id number] thor: Marguerite (Rn) ANEUDY Albarranervice: (none)Author Type: Registered NurseType: Nursing Progress NoteFiled: 11/30/2017 7:06 PMNote Text: INTRODUCED SELF TO PATIENT AND SUPPORT PERSONS. PLAN OF CARE DISCUSSED.ASSESSMENT PERFORMED. PATIENT DENIES COMPLAINTS. Normal [facility] NURSING PROG HNO ID: [id number] thor: Darcie (Rn) ANEUDY Landeroservice: NursingAuthor Type: Registered NurseType: Nursing Progress NoteFiled: 11/30/2017 10:03 AMNote Text:Patient up to shower for comfort. Boyfriend at side. On telemetrymonitors. RN remains in room. FHR difficult to maintain continuoustracing Normal [facility] NURSING PROG HNO ID: [id number] Author: Norah (Rn) KARRI Eastman Service: Nursing Author Type: Registered Nurse Type: Nursing Progress Note Filed: 11/30/2017 7:18 AM Note Text: Report given to Darcie DURAN and care transferred at this time. 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 PROGRESSon 11-30-2017 PROGRESS HNO ID: [id number] thor: Marie Lema (Res) JabiereService: ObstetricsAuthor Type: ResidentType: Progress NotesFiled: 11/30/2017 5:04 PMNote Text:UpdatePatient is pushing in the OR. Cat I FHRT with baseline around 160s. updated and in house.Franki Neri 2017 5:[address] [facility] PROGRESS HNO ID: [id number] Author: Darcie (Rn) KARRI Landeros Service: Nursing Author Type: Registered Nurse Type: Progress Notes Filed: 11/30/2017 3:29 PM Note Text: Patient feeling pressure, cervical exam 9.5 cm. NICU notified. Patient feels warm, but temp 36.9. [facility] PROGRESS HNO ID: [id number] thor: Marie Lema (Res) Tristanrvice: ObstetricsAuthor Type: [...] pt comfortable4. s/p FB5. s/[place] [address]. anomalies- prominent cisterna magna, bilateral periventrcularnodular heterotopia, [...] EF 55%.10. H/o maternal clubfoot-s/p repair as yogdma38. H/o tobacco abuse12. Cat II- Isolate late decelerations. Moderate variability. Continuingto make cervical change. Not on Cat II protocol.SIGNATURE: Marie Hassan DO PATIENT NAME: Zuleika LambATE: November 30, 2017 : 1:35 PM PAGER/CONTACT #: [phone] Normal [facility] PROGRESS HNO ID: [id number] thor: Yolanda (Joaquín) SnyderService: ObstetricsAuthor Type: ResidentType: [...] pt comfortable4. s/p FB5. s/[place] [address]. anomalies- prominent cisterna magna, bilateral periventrcularnodular heterotopia, [...] EF 55%.10. H/o maternal clubfoot-s/p repair as kcaqrl50. H/o tobacco abuseSIGNATURE: Yolanda Barbosa DO PATIENT NAME: Zuleika LambATE: November 30, 2017 : 1:11 PM PAGER/CONTACT #: [phone] [facility] PROGRESS HNO ID: [id number] thor: Yolanda (Joaquín) GabrielaerService: ObstetricsAuthor Type: ResidentType: [...] Pit per protocol3. [place] [address]. [place] [address]. anomalies- prominent cisterna magna, bilateral periventrcularnodular heterotopia, [...] EF 55%.10. H/o maternal clubfoot-s/p repair as eveeqn53. H/o tobacco abuseSIGNATURE: Yolanda Barbosa DO PATIENT NAME: Zuleika BecerrilnDATE: November 30, 2017 : 11:05 AM PAGER/CONTACT #: [phone] [facility] PROGRESS HNO ID: [id number] Author: Darcie (Rn) KARRI Landeros Service: Nursing Author Type: Registered Nurse Type: Progress Notes Filed: 11/30/2017 10:35 AM Note Text: Unable to find labwork for chart. [facility] PROGRESS HNO ID: [id number] thor: Marie Lema (Res) JabiereService: ObstetricsAuthor Type: [...] Pit per protocol3. [place] [address]. [place] [address]. anomalies- prominent cisterna magna, bilateral periventrcularnodular heterotopia, [...] EF 55%.10. H/o maternal clubfoot-s/p repair as riauzf57. H/o tobacco abuse?SIGNATURE: Marie Hassan DO PATIENT NAME: Zuleika LambATE: November 30, 2017 : 10:31 AM PAGER/CONTACT #: [phone] [facility] PROGRESS HNO ID: [id number] thor: Darcie [place]) ANEUDY Landeroservice: NursingAuthor Type: Registered NurseType: Progress NotesFiled: 11/30/2017 10:13 AMNote Text:Patient remains in shower. RN and boyfriend at side. EFM on telemetryand adjusted while patient in shower. Difficult to keep baby on. Normal [facility] PROGRESS HNO ID: [id number] thor: Yolanda (Res) SnyderService: ObstetricsAuthor Type: ResidentType: Progress NotesFiled: 11/30/2017 7:35 AMNote Text:In to place FB. Pt tolerated procedure well. Continues to leak clearfluid. Pt uncomfortable with contractions.Cat I FHT, reactive with accelsToco: 2-5 minsHeather Romina, PGY-1Obstetrics and GynecologyPager [phone]/7:34 AM Normal [facility] Type and Screenon 11-30-2017 ABO group Nom (Bld) A Normal [facility] Comment on above: Performed By: #### T &S #### [place] [address] Comment See Below [facility] Comment on above: Result Comment: Scre en &/or Xmatch expires in 3 days at 12 midnight. Redraw patient at that time. Performed By: #### T &S #### [place] [address] RH Type Positive Normal [facility] Comment on above: Performed By: #### T &S #### [place] [address] Progress Noteon 11-28-2017 Property Maintenance Technician Authentication Interface Message Text Routine VisitSubjective: Zuleika Villalta is being seen today for her obstetrical visit. She is at [id number]. Patient reports no complaints. Movement: normal. She [...] CYTOTEC IOL 18 at 5 pm at [facility]. Pre-Procedure formdone (CG)GBS culture: neg 11/07/17Contraception: Considering [...] echo in the [facility] POC reviewedShe would like her follow up and contraception with Dr. Ivan.The total patient time of the visit was 15 minutes, of which greater than 50% ofthe time was spent counseling and coordinating care. Normal [facility] Progress Noteon 11-22-2017 Property Maintenance Technician Authentication Interface Message Text [facility] plan of care faxed to [facility] in event pt would arrive for urgent management. Normal [facility] Progress Noteon 11-21-2017 Property Maintenance Technician Authentication Interface Message Text Routine VisitSubjective: Zuleika Villalta is being seen today for her obstetrical visit. She is at 02b2hhkyhzrfgg. Patient reports that she went to [facility] last night due toconcerns for labor. She [...] CYTOTEC IOL 618-18 at 5 pm at [facility]. Pre-Procedure formdone (CG)GBS culture: neg 11/07/17Contraception: Considering [...] [facility] Progress Noteon 11-12-2017 Property Maintenance Technician Authentication Interface Message Text Call from [facility] that pt presented there in labor. [facility] plan of care and ACOGs [...] Comment on above: Performed By: #### [facility] ####[address] [place], [place] [phone] Progress Noteon 11-07-2017 Property Maintenance Technician Authentication Interface Message Text Routine VisitSubjective: Zuleika Villalta is being seen today for her obstetrical visit. She is at [id number]. Patient reports occasional nausea. No emesis. She [...] [facility] Progress Noteon 10-24-2017 Property Maintenance Technician Authentication Interface Message Text Routine VisitSubjective: [...] and coordinating care.Marco Antonio Antonio DO Normal [facility] Progress Noteon 10-15-2017 Property Maintenance Technician Authentication Interface Message Text Ped selection made. Updated prenatals Normal [facility] Progress Noteon 10-08-2017 Property Maintenance Technician Authentication Interface Message Text Thank you [...] size. There was a patent foramen ovale, dqvivilth-jh-ljuq shunt.Tricuspid valve:Normal tricuspid valve. There was normal [...] fetuses and in fetuses with CHD and zsobqzzyotxvl49r72, the ratio being below 0.3 )Impression and recommendations.1) Abnormal 3-vessel view, ascending aorta was moderately dilated. 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 thymic thoracic ratio (TT-ratio)=0.1 ( TT-ratio 0.44 in normal fetuses and in fetuses with CHD and zxnlaeaxptbeb60v92, the ratio being below 0.3 )5) Normal [...] earlier ifcardiac condition/status changes in any way. [place] follow up and treatmentshould be determined on the basis of the findings on the initial echocardiogram.Counseling and/or coordination of care was greater than 35 minutes which is morethan 50% of the total time of 60 minutes spent on the encounter. Normal [facility] Property Maintenance Technician Authentication Interface Message Text Initial VisitSubjective: [...] weeks for OB visit and BPP in [place].Oksana Amado MD Normal [facility] Cytogenomic Microarray Nivia sis of Bloodon 09-10-2017 Cytogenomic Microarray Analysis of Blood SEE BELOW Normal [facility] Comment on above: Result Comment: SPEC IMEN: BLOODCLINICAL INFORMATION: Learning disability[F81.9]TEST: CYTOGENOMIC MICROARRAY ANALYSISRESULT SUMMARY:Normal femaleNOMENCLATURE:arr(1-22,X)z2SSUYHYSWPXMREU & COMMENTS:The cytogenomics microarray analysis indicated no [...] whole genome microarray analysis was performed the FDA-clearedHiveoo([employer]ource[employer]ogg.com Dx platform, which contains approximately 2.7million markers, including 1,953,246 unique non-polymorphic copy numberprobes and 743,304 single nucleotide polymorphism (SNP) probes. Thegenome-wide functional resolution of this assay is approximately 25 kbfor deletions and 50 kb for duplications. This microarray andassociated software (Chromosome Analysis Suite Dx) were manufactured [employer] and used by the Cytogenetics and Molecular DiagnosticsLaboratories of [facility] for the purpose ofidentifying DNA [...] further information regarding intendeduse and limitations, see http://www.[employer]com/cytoscandx.Note: The Cytogenetics Laboratory has this patient's blood [...] for additional testing. 09/19/2017 BIGG GARCIA, PH.D., [facility] 09/19/2017 Performed By: #### M CRY1 ####[facility] [place], [place] [phone] MRI (SINGLE)on 018 MRI (SINGLE) MRI (SINGLE)CL [...] [facility] Progress Noteon 09-10-2017 Property Maintenance Technician Authentication Interface Message Text The total patient time of the visit was 15 minutes, of which greater than 50% of the time was spent counseling and coordinating care. Normal [facility] Auto Diffon 09-03-2017 Basophils Auto #/vol (Bld) 0.1 E3/mcL Normal 0.0-0.2 [facility] Comment on above: Order Comment: Order Added by Discern Expert. Performed By: #### 2 [id number] ####KADEN [address] [place] [address] Basophils/100 WBC Auto (Bld) 0.5 % Normal 0.0-2.0 [facility] Comment on above: Order Comment: Order Added by Discern Expert. Performed By: #### 2 330181 ####KADEN [address] [place] [address] Eos Absolute 0.0 E3/mcL Normal 0.0-0.7 [facility] Comment on above: Order Comment: Order Added by Discern Expert. Performed By: #### 2 712596 ####KADEN [address] [place] [address] Eosinophils/100 leukocytes 0.4 % Normal 0.0-11.0 [facility] Comment on above: Order Comment: Order Added by Discern Expert. Performed By: #### 2 810769 ####KADEN [address] [place] [address] Lymphocytes 1.3 E3/mcL Normal 1.2-3.4 [facility] Comment on above: Order Comment: Order Added by Discern Expert. Performed By: #### 2 869436 ####KADEN [address] [place] [address] Lymphocytes/100 leukocytes 13.1 % Low 20.0-55.0 [facility] Comment on above: Order Comment: Order Added by Discern Expert. Performed By: #### 2 136984 ####KADEN [address] [place] [address] Preble Absolute 0.4 E3/mcL Normal 0.0-0.7 [facility] Comment on above: Order Comment: Order Added by Discern Expert. Performed By: #### 2 190272 ####KADEN [address] [place] [address] Monocytes/100 leukocytes 4.3 % Normal 0.0-10.0 [facility] Comment on above: Order Comment: Order Added by Discern Expert. Performed By: #### 2 840045 ####KADEN [address] [place] [address] Neutro Absolute 8.4 E3/mcL High 1.4-6.5 [facility] Comment on above: Order Comment: Order Added by Discern Expert. Performed By: #### 2 999817 ####KADEN [address] [place] [address] Neutro Auto 81.7 % High 37.0-75.0 [facility] Comment on above: Order Comment: Order Added by Discern Expert. Performed By: #### 2 306131 ####KADEN [address] [place] [address] CBC w/ Auto Diffon 8 Erythrocyte distribution width Auto Ratio (RBC) 13.1 % Normal 11.5-14.5 [facility] Comment on above: Performed By: #### 2 113985 ####KADEN [address] [place] [address] Erythrocytes (RBC) 3.90 E6/mcL Normal 3.90-5.40 [facility] Comment on above: Performed By: #### 2 429441 ####KADEN [address] [place] [address] Hematocrit (HCT) 34.7 % Low 36.0-48.0 [facility] Comment on above: Performed By: #### 2 185005 ####KADEN [address] [place] [address] Hemoglobin mass conc (Bld) 11.8 g/dL Low 12.0-16.0 [facility] Comment on above: Performed By: #### 2 272686 ####KADEN [address] [place] [address] MCH 30.3 pg Normal 27.0-31.0 [facility] Comment on above: Performed By: #### 2 109590 ####KADEN [address] [place] [address] MCHC mass conc (RBC) 34.2 g/dL Normal 33.0-37.0 [facility] Comment on above: Performed By: #### 2 950042 ####KADEN [address] [place] [address] MCV 88.8 fL Normal 78.0-100.0 [facility] Comment on above: Performed By: #### 2 226579 ####KADEN [address] [place] [address] Platelet mean volume (PMV) 7.3 fL Low 7.4-11.0 [facility] Comment on above: Performed By: #### 2 958174 ####KADEN [address] [place] [address] Platelets 218 E3/mcL Normal 130-400 [facility] Comment on above: Performed By: #### 2 902519 ####KADEN [address] [place] [address] WBC (Leukocytes) 10.2 E3/mcL Normal 3.6-11.0 [facility] Comment on above: Performed By: #### 2 766561 ####KADEN [address] [place] [address] Gest Scr Glu 1 Hron 09-04-19 18 Glucose mass conc 113 mg/dL Normal 70-140 [facility] Comment on above: Performed By: #### 2 978634 ####KADEN [address] [place] [address] FISH Probeon 08-13-2017 Protein mass conc SEE BELOW Normal [facility] Comment on above: Result Comment: SPEC IMEN: BLOOD - [id number] INFORMATION:TEST: FISH Analysis of the DiGeorge/VCFS Region [...] Metaphase images: 2The Vysis LSI DARREN Spectrum Morven Probe contains the DARREN gene (3'non-coding region of TUPLE1, F60O021, and C42W6001. The Vysis LSI ARSAspectrum Green Probe includes [...] J Med Barbara 66:250-256,1995. BIGG GARCIA, PH.D., [facility] 08/16/2017 Performed By: #### F [facility] ####[address] [phone] Progress Noteon 08-13-2017 Property Maintenance Technician Authentication Interface Message Text Met with [...] share information with FTC team, OB and nursing attendant signed. Pt plans to deliver in [place] with [facility]. Currently with Dr. Shekhar Dyson.Patternmaker All Around is undecided. [facility] provided and discussed importance ofselection prior [...] coordinating care. Normal [facility] Property Maintenance Technician Authentication Interface Message Text Thank you [...] size. There was a patent foramen ovale, cebwyoccu-dl-ekan shunt.Tricuspid valve:Normal tricuspid valve. There was normal [...] [facility] Progress Noteon 07-18-2017 Property Maintenance Technician Authentication Interface Message Text [facility] MATERNAL- MEDICINE CONSULTReferring/Requestin g Provider: VINI [...] no palpitations. She usually doesnot see a type copyist, but did have a recent echo due [...] Stroke Maternal Grandmother Heart Disease Maternal Grandmother CA Clotting Disorder Maternal Grandfather Miscarriages / Stillbirths [...] a child 07/18/2017 Consider evaluation with social and political studies professor to assess for any needs duringpregnancy or after. Will have genetic consult with [facility] evaluation. cardiac anomaly complicating , antepartum 07/18/2017 Dilated aortic root seen on ultrasound along with large umbilical cordvarix, dolichocephaly DW Dr. Zazueta, verbal order to refer to [facility] Will be scheduled with pediatric cardiology. Also, patient and family members have a history of learning disabilities,including an individual learning plan in school. She will talk to her familymembers and bring as much information as is available for her genetics consult.She has transportation to [place] and is willing to be seen [facility].The total patient time of the visit was 30 minutes, of which was greater than50% of the time was spent counseling and coordinating care. Normal [facility] IGP W/hpv Rfx [id number] 05-07 Diagnosis: See Ref Lab Report Normal [facility] Comment on above: Order Comment: Thin Prep. Performed By: #### 2 217000 ####KADEN [address] [place] [address] C Urineon 05-03-2017 C Urine Final Report: Normal skin alonso isolated Normal [facility] Comment on above: Performed By: #### 2 885819 ####KADEN [address]wEmbq[address] [place] [address] RPRon 05-03-2017 RPR Ql Non-Reactive Normal Non-Reacti ve [facility] Comment on above: Performed By: #### 2 733571 ####KADEN [address]rm[address] [place] [address] Hep Bs Agon 05-02-2017 BSA (Body Surface Area) Negative Normal Negative [facility] Comment on above: Result Comment: Perf ormed At: CB [facility] [address] [place], [place] [id number] Vincent PhD Ph:[phone] Performed By: #### 2 376752 ####KADEN [address] [place] [address] ABO/Rh Echoon 05-01-2017 ABO/Rh E Interp... Positive Normal [facility] Comment on above: Performed By: #### 2 637455 ####KADEN [address] [place] [address] Antibody Screen Cap...on Screen Interp... Negative Normal [facility] Comment on above: Performed By: #### 2 108156 ####KADEN [address] [place] [address] Auto Diffon 05-01-2017 Basophils Auto #/vol (Bld) 0.0 E3/mcL Normal 0.0-0.2 [facility] Comment on above: Order Comment: Order Added by Discern Expert. Performed By: #### 2 674590 ####KADEN Urinalysis Manual [address] [place] [address] Basophils/100 WBC Auto (Bld) 0.4 % Normal 0.0-2.0 [facility] Comment on above: Order Comment: Order Added by Discern Expert. Performed By: #### 2 500011 ####KADEN Urinalysis Manual [address] [place] [address] Eos Absolute 0.1 E3/mcL Normal 0.0-0.7 [facility] Comment on above: Order Comment: Order Added by Discern Expert. Performed By: #### 2 213122 ####KADEN Urinalysis Manual [address] [place] [address] Eosinophils/100 leukocytes 0.7 % Normal 0.0-11.0 [facility] Comment on above: Order Comment: Order Added by Discern Expert. Performed By: #### 2 499381 ####KADEN Urinalysis Manual [address] [place] [address] Lymphocytes 1.8 E3/mcL Normal 1.2-3.4 [facility] Comment on above: Order Comment: Order Added by Discern Expert. Performed By: #### 2 922484 ####KADEN Urinalysis Manual [address] [place] [address] Lymphocytes/100 leukocytes 17.1 % Low 20.0-55.0 [facility] Comment on above: Order Comment: Order Added by Discern Expert. Performed By: #### 2 505896 ####KADEN Urinalysis Manual [address] [place] [address] Preble Absolute 0.5 E3/mcL Normal 0.0-0.7 [facility] Comment on above: Order Comment: Order Added by Discern Expert. Performed By: #### 2 357900 ####KADEN Urinalysis Manual [address] [place] [address] Monocytes/100 leukocytes 5.0 % Normal 0.0-10.0 [facility] Comment on above: Order Comment: Order Added by Discern Expert. Performed By: #### 2 509828 ####KADEN Urinalysis Manual [address] [place] [address] Neutro Absolute 8.0 E3/mcL High 1.4-6.5 [facility] Comment on above: Order Comment: Order Added by Discern Expert. Performed By: #### 2 849430 ####KADEN Urinalysis Manual [address] [place] [address] Neutro Auto 76.8 % High 37.0-75.0 [facility] Comment on above: Order Comment: Order Added by Discern Expert. Performed By: #### 2 823982 ####KADEN Urinalysis Manual [address] [place] [address] CBC w/ Auto Diffon 7 Erythrocyte distribution width Auto Ratio (RBC) 15.2 % High 11.5-14.5 [facility] Comment on above: Performed By: #### 2 989724 ####KADEN Urinalysis Manual [address] [place] [address] Erythrocytes (RBC) 4.90 E6/mcL Normal 3.90-5.40 [facility] Comment on above: Performed By: #### 2 839541 ####KADEN Urinalysis Manual [address] [place] [address] Hematocrit (HCT) 41.1 % Normal 36.0-48.0 [facility] Comment on above: Performed By: #### 2 282768 ####KADEN Urinalysis Manual [address] [place] [address] Hemoglobin mass conc (Bld) 13.5 g/dL Normal 12.0-16.0 [facility] Comment on above: Performed By: #### 2 737704 ####KADEN Urinalysis Manual [address] [place] [address] MCH 27.5 pg Normal 27.0-31.0 [facility] Comment on above: Performed By: #### 2 531089 ####KADEN Urinalysis Manual [address] [place] [address] MCHC mass conc (RBC) 32.8 g/dL Low 33.0-37.0 [facility] Comment on above: Performed By: #### 2 194869 ####KADEN Urinalysis Manual [address] [place] [address] MCV 83.9 fL Normal 78.0-100.0 [facility] Comment on above: Performed By: #### 2 721331 ####KADEN Urinalysis Manual [address] [place] [address] Platelet mean volume (PMV) 8.0 fL Normal 7.4-11.0 [facility] Comment on above: Performed By: #### 2 319206 ####KADEN Urinalysis Manual [address] [place] [address] Platelets 246 E3/mcL Normal 130-400 [facility] Comment on above: Performed By: #### 2 902522 ####KADEN Urinalysis Manual [address] [place] [address] WBC (Leukocytes) 10.4 E3/mcL Normal 3.6-11.0 [facility] Comment on above: Performed By: #### 2 335990 ####KADEN Urinalysis Manual [address] [place] [address] Chlamydia GC by PCRon 2016 Chlamydia by PCR. Not Detected Normal Not Detected [facility] Comment on above: Result Comment: Xper t CT/NG Assay performance has not been evaluated in patients less than 14 years of age. Performed By: #### 2 441041 ####KADEN [address] [place] [address] Gonorrhoeae by PCR Not Detected Normal Not Detected [facility] Comment on above: Result Comment: Xper t CT/NG Assay performance has not been evaluated in patients less than 14 years of age. Performed By: #### 2 679861 ####KADEN [address] [place] [address] HIV-1/2 Ag/Abon 05-01-2017 HIV-1/2 Ag/Ab Non-Reactive Normal Non-Reacti ve [facility] Comment on above: Performed By: #### 2 637264 ####KADEN Urinalysis Manual [address] [place] [address] Rubella IgG Lvlon 05-01-2017 Rubella IgG Lvl 50.8 (POS) Normal [facility] Comment on above: Result Comment: <10I U/ml NON REACTIVE: NOT VYORVI97-89 IU/ml RUBELLA SPECIFIC AB PRESENT, EVALUATEFURTHER TO DETERMINE IMMUNE STATUS >15 IU/ml REACTIVE, IMMUNE Performed By: #### 2 041893 ####KADEN [address] [place] [address] Auto Diffon 04-22-2017 Basophils Auto #/vol (Bld) 0.1 E3/mcL Normal 0.0-0.2 [facility] Comment on above: Order Comment: Order Added by Discern Expert. Performed By: #### 2 098101 ####KADEN Urinalysis Manual [address] [place] [address] Basophils/100 WBC Auto (Bld) 0.6 % Normal 0.0-2.0 [facility] Comment on above: Order Comment: Order Added by Discern Expert. Performed By: #### 2 119646 ####KADEN Urinalysis Manual [address] [address] Eos Absolute 0.0 E3/mcL Normal 0.0-0.7 [facility] Comment on above: Order Comment: Order Added by Discern Expert. Performed By: #### 2 [id number] ####KADEN Urinalysis Manual [address] [place] [address] Eosinophils/100 leukocytes 0.2 % Normal 0.0-11.0 [facility] Comment on above: Order Comment: Order Added by Discern Expert. Performed By: #### 2 [id number] ####KADEN Urinalysis Manual [address] [place] [address] Lymphocytes 1.5 E3/mcL Normal 1.2-3.4 [facility] Comment on above: Order Comment: Order Added by Discern Expert. Performed By: #### 2 173085 ####KADEN Urinalysis Manual F[address]ugpnxni[address] [place] [address] 70689 Lymphocytes/100 leukocytes 10.8 % Low 20.0-55.0 [facility] Comment on above: Order Comment: Order Added by Discern Expert. Performed By: #### 2 371266 ####KADEN Urinalysis Manual [address] [place] [address] Preble Absolute 0.6 E3/mcL Normal 0.0-0.7 [facility] Comment on above: Order Comment: Order Added by Discern Expert. Performed By: #### 2 572415 ####KADEN Urinalysis Manual Qgpmllfgrl[address] [place] [address] Monocytes/100 leukocytes 4.4 % Normal 0.0-10.0 [facility] Comment on above: Order Comment: Order Added by Discern Expert. Performed By: #### 2 676981 ####KADEN Urinalysis Manual Jfearatlvu0676[address] [place] [address] Neutro Absolute 11.3 E3/mcL High 1.4-6.5 [facility] Comment on above: Order Comment: Order Added by Discern Expert. Performed By: #### 2 731462 ####KADEN Urinalysis Manual Krjzgfhefj[address]13[address] [place] [address] Neutro Auto 84.0 % High 37.0-75.0 [facility] Comment on above: Order Comment: Order Added by Discern Expert. Performed By: #### 2 771382 ####KADEN Urinalysis Manual [address]zx[address] [place] [address] BMPon 04-22-2017 BUN/Creatinine Ratio Unable to calc Normal 5.4-30.0 [facility] Comment on above: Performed By: #### 2 000400 ####KADEN Urinalysis Manual Ewmgwcqqxm3511[address] [place] [address] Creatinine mg/dL Low 0.6-1.3 [facility] Comment on above: Performed By: #### 2 664213 ####KADEN Urinalysis Manual Kkipjojnmi7809[address] [place] [address] Urea nitrogen 7 mg/dL Normal 7-18 [facility] Comment on above: Performed By: #### 2 293064 ####KADEN Urinalysis Manual Vjllsmhxdd5278 [place] [address] Calcium 9.6 mg/dL Normal 8.4-10.2 [facility] Comment on above: Performed By: #### 2 457322 ####KADEN Urinalysis Manual Fnngfjcvjd5897 [place] [address] Chloride 103 mmol/L Normal 98-107 [facility] Comment on above: Performed By: #### 2 360104 ####KADEN Urinalysis Manual Exkwzysz[address] [place] [address] CO2 21.7 mmol/L Low 24.0-30.0 [facility] Comment on above: Performed By: #### 2 379656 ####KADEN Urinalysis Manual Uecvwqdesg[address] [place] [address] Glucose mass conc 89 mg/dL Normal 70-99 [facility] Comment on above: Performed By: #### 2 026110 ####KADEN Urinalysis Manual Nmxshklyjw7897[address] [place] [address] Potassium molar conc 3.6 mmol/L Normal 3.5-5.1 [facility] Comment on above: Performed By: #### 2 297562 ####KADEN Urinalysis Manual Qfkwzdjtwe425[address] [place] [address] Sodium 136 mmol/L Normal 136-145 [facility] Comment on above: Performed By: #### 2 512443 ####KADEN Urinalysis Manual Aijequugag8374[address] [place] [address] CBC w/ Auto Diffon 7 Erythrocyte distribution width Auto Ratio (RBC) 14.8 % High 11.5-14.5 [facility] Comment on above: Performed By: #### 2 804467 ####KADEN Urinalysis Manual Uvcufaigum3[address] [place] [address] Erythrocytes (RBC) 4.96 E6/mcL Normal 3.90-5.40 [facility] Comment on above: Performed By: #### 2 185736 ####KADEN Urinalysis Manual Xutunlbhri9860 [place] [address] Hematocrit (HCT) 40.9 % Normal 36.0-48.0 [facility] Comment on above: Performed By: #### 2 966801 ####KADEN Urinalysis Manual Ypgpcextmd254[address] [place] [address] Hemoglobin mass conc (Bld) 13.5 g/dL Normal 12.0-16.0 [facility] Comment on above: Performed By: #### 2 988164 ####KADEN Urinalysis Manual Ntzngpbvhq2039[address] [place] [address] MCH 27.2 pg Normal 27.0-31.0 [facility] Comment on above: Performed By: #### 2 882426 ####KADEN Urinalysis Manual Swgrhehlyy7877[address] [place] [address] MCHC mass conc (RBC) 33.0 g/dL Normal 33.0-37.0 [facility] Comment on above: Performed By: #### 2 391295 ####KADEN Urinalysis Manual Svkrxrwsjg286[address] [place] [address] MCV 82.4 fL Normal 78.0-100.0 [facility] Comment on above: Performed By: #### 2 509770 ####KADEN Urinalysis Manual Jycbbthphl9444[address] [place] [address] Platelet mean volume (PMV) 8.0 fL Normal 7.4-11.0 [facility] Comment on above: Performed By: #### 2 477184 ####KADEN Urinalysis Manual Rleuhwyxmv3550[address] [place] [address] Platelets 237 E3/mcL Normal 130-400 [facility] Comment on above: Performed By: #### 2 191464 ####KADEN Urinalysis Manual Qshwsygdsa3816[address] [place] [address] WBC (Leukocytes) 13.5 E3/mcL High 3.6-11.0 [facility] Comment on above: Performed By: #### 2 842779 ####KADEN Urinalysis Manual Wxpwpcvcyb[address] [place] [address] UA Completeon 04-22-2017 UA Blood Negative Normal Negative [facility] Comment on above: Performed By: #### 2 003769 ####KADEN Urinalysis Manual Nemtxezhtn9748 [place] [address] UA Ascorbic Acid 40 mg/dL High <=19 [facility] Comment on above: Performed By: #### 2 927030 ####KADEN Urinalysis Manual Jwwwhuystl[address] [place] [address] UA Bacteria 3+ /HPF Abnormal None [facility] Comment on above: Performed By: #### 2 775582 ####KADEN Urinalysis Manual Wejnpwjrpe[address] [place] [address] UA Clarity SltCloudy Abnormal Clear [facility] Comment on above: Performed By: #### 2 851476 ####KADEN Urinalysis Manual Wytodxqenc2432[address] [place] [address] UA Leuk Est Negative Normal Negative [facility] Comment on above: Performed By: #### 2 487742 ####KADEN Urinalysis Manual Wqsamalzia2549[address] [place] [address] UA Mucous Few Abnormal Trace [facility] Comment on above: Performed By: #### 2 672645 ####KADEN Urinalysis Manual Arkdjqipbx5445[address] [place] [address] UA Nitrite Negative Normal Negative [facility] Comment on above: Performed By: #### 2 814506 ####KADEN Urinalysis Manual Bmpwkybkvq3369[address] [place] [address] UA pH 8.0 Normal 4.6-8.0 [facility] Comment on above: Performed By: #### 2 070361 ####KADEN Urinalysis Manual Ualcerjnmz8855[address] [place] [address] UA Protein Negative Normal Negative [facility] Comment on above: Performed By: #### 2 639584 ####KADEN Urinalysis Manual Axsgsxjjbm4019[address] [place] [address] UA Spec Grav 1.012 Normal 1.003-1.03 0 [facility] Comment on above: Performed By: #### 2 053847 ####KADEN Urinalysis Manual Cnmtrklrdl0927[address] [place] [address] UA Squam Epithelial 0-5 Normal 0-5 [facility] Comment on above: Performed By: #### 2 526313 ####KADEN Urinalysis Manual Owtflvbszx1053 [place] [address] UA Urobilinogen Negative Normal [facility] Comment on above: Performed By: #### 2 119675 ####KADEN Urinalysis Manual Ythidotjgr7072 [place] [address] UA WBC 0-5 Normal 0-5 [facility] Comment on above: Performed By: #### 2 877762 ####KADEN Urinalysis Manual Isndijpqrc3024 [place] [address] Urine, color Yellow Normal Yellow [facility] Comment on above: Performed By: #### 2 597168 ####KADEN Urinalysis Manual Wvvbunazex6[address] [place] [address] Urine, glucose Negative Normal Negative [facility] Comment on above: Performed By: #### 2 491693 ####KADEN Urinalysis Manual Dtamepwodw8200[address] [place] [address] Urine, ketones presence 1+ Abnormal Negative [facility] Comment on above: Performed By: #### 2 535103 ####KADEN Urinalysis Manual Oseassewye[address] [place] [address] Urine, urobilinogen Negative Normal Negative [facility] Comment on above: Performed By: #### 2 980835 ####KADEN Urinalysis Manual Mymmscuwmt[address] [place] [address] eGFRon 04-22-2017 eGFR AA >60 Normal [facility] Comment on above: Order Comment: Order added by Discern Expert. Performed By: #### 2 334633 ####KADEN Urinalysis Manual Aykuffesic9924 [place] [address] eGFR (non-black) mL/min/{1.73_m2} Normal [facility] Comment on above: Order Comment: Order added by Discern Expert. Performed By: #### 2 940687 ####KADEN Urinalysis Manual Jlgdaetdsn[address] [place] [address] C Urineon 04-20-2017 C Urine Final Report: Normal skin alonso isolated Normal [facility] Comment on above: Performed By: #### 2 688469 ####KADEN Urinalysis Manual Uvewxvneis3178 [place] [address] BMPon 04-18-2017 BUN/Creatinine Ratio 15.0 ratio Normal 5.4-30.0 [facility] Comment on above: Performed By: #### 2 975253 ####KADENMorelia BairdXtyPlgu4321 [place] [address] Creatinine 0.6 mg/dL Normal 0.6-1.3 [facility] Comment on above: Performed By: #### 2 675358 ####KADENMorelia BairdEarZkhs6884 [place] [address] Urea nitrogen 9 mg/dL Normal 7-18 [facility] Comment on above: Performed By: #### 2 411402 ####KADENMorelia BairdMtzFlfi0982 [place] [address] Calcium 9.6 mg/dL Normal 8.4-10.2 [facility] Comment on above: Performed By: #### 2 686800 ####KADENMorelia BairdKfkVoyu1393 [place] [address] Chloride 102 mmol/L Normal 98-107 [facility] Comment on above: Performed By: #### 2 329570 ####KADENMorelia BairdWfxVhme1445 [place] [address] CO2 23.3 mmol/L Low 24.0-30.0 [facility] Comment on above: Performed By: #### 2 004848 ####KADENMorelia BairdJnfIqzm3682 [place] [address] Glucose mass conc 93 mg/dL Normal 70-99 [facility] Comment on above: Performed By: #### 2 231282 ####KADENMorelia BairdJbjBioi1123 [place] [address] Potassium molar conc 3.5 mmol/L Normal 3.5-5.1 [facility] Comment on above: Performed By: #### 2 297706 ####KADENMorelia BairdDtwMvnv4083 [place] [address] Sodium 136 mmol/L Normal 136-145 [facility] Comment on above: Performed By: #### 2 722713 ####KADENMorelia BairdDpnVseg4152 [place] [address] UA Completeon 04-18-2017 UA Blood Negative Normal Negative [facility] Comment on above: Performed By: #### 2 034368 ####KADEN Urinalysis Manual Kkdmirpaos8[address] [place] [address] UA Amorph Chastity 2+ /HPF Abnormal None [facility] Comment on above: Performed By: #### 2 404643 ####KADEN Urinalysis Manual Wgdyshzany[address] [place] [address] UA Ascorbic Acid 40 mg/dL High <=19 [facility] Comment on above: Performed By: #### 2 352565 ####KADEN Urinalysis Manual Ozwrpsupuh3250[address] [place] [address] UA Clarity Cloudy Abnormal Clear [facility] Comment on above: Performed By: #### 2 378221 ####KADEN Urinalysis Manual Qvrqkttdpy027[address] [place] [address] UA Leuk Est Negative Normal Negative [facility] Comment on above: Performed By: #### 2 781009 ####KADEN Urinalysis Manual Tamgzykxpk2520[address] [place] [address] UA Mucous Trace Abnormal Trace [facility] Comment on above: Performed By: #### 2 083358 ####KADEN Urinalysis Manual Dutnvrtowh[address] [place] [address] UA Nitrite Negative Normal Negative [facility] Comment on above: Performed By: #### 2 368534 ####KADEN Urinalysis Manual Hzyexktddx20[address] [place] [address] UA pH 7.0 Normal 4.6-8.0 [facility] Comment on above: Performed By: #### 2 369832 ####KADEN Urinalysis Manual Qaozaaxinj202[address] [place] [address] UA Protein Negative Normal Negative [facility] Comment on above: Performed By: #### 2 188296 ####KADEN Urinalysis Manual Rahuxjcvyv6954[address] [place] [address] UA Spec Grav 1.018 Normal 1.003-1.03 0 [facility] Comment on above: Performed By: #### 2 592420 ####KADEN Urinalysis Manual Qtmzfgeaan[address] [place] [address] UA Squam Epithelial 0-5 Normal 0-5 [facility] Comment on above: Performed By: #### 2 199347 ####KADEN Urinalysis Manual Yopnskicgw3945[address] [place] [address] UA Urobilinogen Negative Normal [facility] Comment on above: Performed By: #### 2 168675 ####KADEN Urinalysis Manual Lmxhiahvil4767[address] [place] [address] Urine, color Yellow Normal Yellow [facility] Comment on above: Performed By: #### 2 401783 ####KADEN Urinalysis Manual Hpuyixhmsl85[address] [place] [address] Urine, glucose Negative Normal Negative [facility] Comment on above: Performed By: #### 2 073425 ####KADEN Urinalysis Manual Oejzruezpx8430[address] [place] [address] Urine, ketones presence 2+ Abnormal Negative [facility] Comment on above: Performed By: #### 2 845326 ####KADEN Urinalysis Manual Sfkwnzkthv8974[address] [place] [address] Urine, urobilinogen Negative Normal Negative [facility] Comment on above: Performed By: #### 2 965607 ####KADEN Urinalysis Manual Rhihokhuyw368[address] [place] [address] eGFRon 04-18-2017 eGFR (non-black) mL/min/{1.73_m2} Normal [facility] Comment on above: Order Comment: Order added by Discern Expert. Performed By: #### 1 0482385 ####KADEN AzoZnku8761 [place] [address] eGFR AA >60 Normal [facility] Comment on above: Order Comment: Order added by Discern Expert. Performed By: #### 1 [id number] ####KADENMorelia BairdIinMjvy4042 [place] [address] Auto Diffon 04-11-2017 Basophils Auto #/vol (Bld) 0.1 E3/mcL Normal 0.0-0.2 [facility] Comment on above: Order Comment: Order Added by Discern Expert. Performed By: #### 2 433192 ####KADEN BairdEzeMfji8611 [place] [address] Basophils/100 WBC Auto (Bld) 0.7 % Normal 0.0-2.0 [facility] Comment on above: Order Comment: Order Added by Discern Expert. Performed By: #### 2 690708 ####KADEN BairdRavApjb7734 [place] [address] Eos Absolute 0.0 E3/mcL Normal 0.0-0.7 [facility] Comment on above: Order Comment: Order Added by Discern Expert. Performed By: #### 2 505395 ####KADEN XqpKzdq8435 [place] [address] Eosinophils/100 leukocytes 0.1 % Normal 0.0-11.0 [facility] Comment on above: Order Comment: Order Added by Discern Expert. Performed By: #### 2 335294 ####KADEN AxqFinp1112 [place] [address] Lymphocytes 1.5 E3/mcL Normal 1.2-3.4 [facility] Comment on above: Order Comment: Order Added by Discern Expert. Performed By: #### 2 828123 ####KADEN WjnNysd0505 [place] [address] Lymphocytes/100 leukocytes 17.2 % Low 20.0-55.0 [facility] Comment on above: Order Comment: Order Added by Discern Expert. Performed By: #### 2 790226 ####KADEN YjcWluf7938 [place] [address] Preble Absolute 0.6 E3/mcL Normal 0.0-0.7 [facility] Comment on above: Order Comment: Order Added by Discern Expert. Performed By: #### 2 823400 ####KADEN LphPalt1454 [place] [address] Monocytes/100 leukocytes 6.6 % Normal 0.0-10.0 [facility] Comment on above: Order Comment: Order Added by Discern Expert. Performed By: #### 2 228127 ####KADEN LdcRbou1788 [place] [address] Neutro Absolute 6.7 E3/mcL High 1.4-6.5 [facility] Comment on above: Order Comment: Order Added by Discern Expert. Performed By: #### 2 956857 ####KADEN Luceroo1025 [place] [address] Neutro Auto 75.4 % High 37.0-75.0 [facility] Comment on above: Order Comment: Order Added by Discern Expert. Performed By: #### 2 078733 ####KADEN Luceroo1025 [place] [address] BMPon 04-11-2017 BUN/Creatinine Ratio 12.9 ratio Normal 5.4-30.0 [facility] Comment on above: Performed By: #### 2 384242 ####KADEN Bai1025 [place] [address] Creatinine 0.7 mg/dL Normal 0.6-1.3 [facility] Comment on above: Performed By: #### 2 521280 ####KADEN Bai1025 [place] [address] Urea nitrogen 9 mg/dL Normal 7-18 [facility] Comment on above: Performed By: #### 2 455682 ####KADEN BairdHjvIkbw9144 [place] [address] Calcium 9.5 mg/dL Normal 8.4-10.2 [facility] Comment on above: Performed By: #### 2 690253 ####KAEDN BairdPbaZaqj4441 [place] [address] Chloride 105 mmol/L Normal 98-107 [facility] Comment on above: Performed By: #### 2 036260 ####KADEN BairdHmqNxpr7749 [place] [address] CO2 22.5 mmol/L Low 24.0-30.0 [facility] Comment on above: Performed By: #### 2 918322 ####KADEN BairdHqiBpev2105 [place] [address] Glucose mass conc 92 mg/dL Normal 70-99 [facility] Comment on above: Performed By: #### 2 836778 ####KADEN BairdXcqMcvo1849 [place] [address] Potassium molar conc 3.6 mmol/L Normal 3.5-5.1 [facility] Comment on above: Performed By: #### 2 112633 ####KADENMorelia BairdSspCcjt7704 [place] [address] Sodium 137 mmol/L Normal 136-145 [facility] Comment on above: Performed By: #### 2 157732 ####KADEN WphLzos6041 [place] [address] BhCG Quanton 04-11-2017 Beta hCG Qnt 8564.0 mIU/m Normal [facility] Comment on above: Result Comment: FEMA LE (NON-) & MALE <3 BORDERLINE 3 - 5 SUGGEST REPEAT TESTING FEMALE () 1 D - 1 WK 5 - 50 1 - 2 WK 50 - 500 2 - 3 WK 100 - 5000 3 - 4 WK 500 - 06088 4 - 5 WK 1000 - 61198 5 - 6 WK 14915 - 625324 6 - 8 W[place] [address] - 814892 2 - 3 [place] [address] - 916126 Performed By: #### 2 681680 ####KADENMorelia BairdFeqGwhv8485 [place] [address] CBC w/ Auto Diffon 7 Erythrocyte distribution width Auto Ratio (RBC) 13.9 % Normal 11.5-14.5 [facility] Comment on above: Performed By: #### 2 564519 ####KADENMorelia BairdAsnIzmf5470 [place] [address] Erythrocytes (RBC) 4.63 E6/mcL Normal 3.90-5.40 [facility] Comment on above: Performed By: #### 2 546368 ####KADENMorelia BairdCjxYznn6465 [place] [address] Hematocrit (HCT) 38.2 % Normal 36.0-48.0 [facility] Comment on above: Performed By: #### 2 104840 ####KADENMorelia BairdInzJako0894 [place] [address] Hemoglobin mass conc (Bld) 12.6 g/dL Normal 12.0-16.0 [facility] Comment on above: Performed By: #### 2 154329 ####KADENMorelia BairdXkgXkjh3059 [place] [address] MCH 27.2 pg Normal 27.0-31.0 [facility] Comment on above: Performed By: #### 2 805244 ####KADEN BairdDidZnle8825 [place] [address] MCHC mass conc (RBC) 33.0 g/dL Normal 33.0-37.0 [facility] Comment on above: Performed By: #### 2 426117 ####KADEN BairdHljAcoe6086 [place] [address] MCV 82.6 fL Normal 78.0-100.0 [facility] Comment on above: Performed By: #### 2 324008 ####KADEN BairdNrdZmjw7422 [place] [address] Platelet mean volume (PMV) 8.0 fL Normal 7.4-11.0 [facility] Comment on above: Performed By: #### 2 164143 ####KADEN Luceroo1025 [place] [address] Platelets 233 E3/mcL Normal 130-400 [facility] Comment on above: Performed By: #### 2 035920 ####KADEN BairdVdsXxby8291 [place] [address] WBC (Leukocytes) 9.0 E3/mcL Normal 3.6-11.0 [facility] Comment on above: Performed By: #### 2 285989 ####KADEN BairdXpuBkny4121 [place] [address] UA Completeon 04-11-2017 UA Blood Negative Normal Negative [facility] Comment on above: Result Comment: High concentration of Ascorbic Acid present in urine. This may cause False Negative Occ Blood. Review microscopic results and patient's clinical symptoms. Performed By: #### 8 0516115 ####KADEN Urinalysis Automated Pdeazdzbcn9319 [place] [address] UA Amorph Chastity 1+ /HPF Abnormal None [facility] Comment on above: Performed By: #### 8 7676339 ####KADEN Urinalysis Automated Xhbbzcclwu2234 [place] [id number] UA Ascorbic Acid 40 mg/dL High <=19 [facility] Comment on above: Performed By: #### 8 2785801 ####KADEN Urinalysis Automated Rgifrqipji4628 [place] [address] UA Bacteria Trace Abnormal None [facility] Comment on above: Performed By: #### 8 4959684 ####KADEN Urinalysis Automated Issqwovdvz9153 [place] [address] UA Clarity Cloudy Abnormal Clear [facility] Comment on above: Performed By: #### 8 2469737 ####KADEN Urinalysis Automated Whczyarcav6090 [place] [address] UA Leuk Est Negative Normal Negative [facility] Comment on above: Performed By: #### 8 2313618 ####KADEN Urinalysis Automated Xabvbxnmxh3061 [place] [address] UA Mucous Few Abnormal Trace [facility] Comment on above: Performed By: #### 8 2771266 ####KADEN Urinalysis Automated Dmqlbcuutz[address] [place] [address] UA Nitrite Negative Normal Negative [facility] Comment on above: Performed By: #### 8 9448814 ####KADEN Urinalysis Automated Rkyjjaxpod93[address] [place] [address] UA pH 7.0 Normal 4.6-8.0 [facility] Comment on above: Performed By: #### 8 3331130 ####KADEN Urinalysis Automated Uejlugfifp37[address] [place] [address] UA Protein Negative Normal Negative [facility] Comment on above: Performed By: #### 8 0374295 ####KADEN Urinalysis Automated Eqlgjklpdd5109 [place] [address] UA Spec Grav 1.025 Normal 1.003-1.03 0 [facility] Comment on above: Performed By: #### 8 6427258 ####KADEN Urinalysis Automated Dnlhzxhpzi4934 [place] [address] UA Squam Epithelial 5-10 Abnormal 0-5 [facility] Comment on above: Performed By: #### 8 1484529 ####KADEN Urinalysis Automated Twnpthpygv0462 [place] [address] UA Urobilinogen 2.0 mg/dL Abnormal [facility] Comment on above: Performed By: #### 8 2157442 ####KADEN Urinalysis Automated Bhdpnlpdic5161 [place] [address] Urine, color Yellow Normal Yellow [facility] Comment on above: Performed By: #### 8 3451502 ####KADEN Urinalysis Automated Urcfarbges6320 [place] [address] Urine, erythrocytes 0-3 Normal 0-3 [facility] Comment on above: Performed By: #### 8 9837555 ####KADEN Urinalysis Automated Xfkhrtfzme6677 [place] [address] Urine, glucose Negative Normal Negative [facility] Comment on above: Performed By: #### 8 0593139 ####KADEN Urinalysis Automated Oidllviopw[address] [place] [address] Urine, ketones presence 2+ Abnormal Negative [facility] Comment on above: Performed By: #### 8 0892418 ####KADEN Urinalysis Automated Rbngvkjdab[address] [place] [address] Urine, urobilinogen Negative Normal Negative [facility] Comment on above: Performed By: #### 8 9451339 ####KADEN Urinalysis Automated [address]oukizyzc[address] [place] [address] eGFRon 04-11-2017 eGFR (non-black) mL/min/{1.73_m2} Normal [facility] Comment on above: Order Comment: Order added by Discern Expert. Performed By: #### 1 6574654 ####KADEN JrtZpmf4213 [place] [address] eGFR AA >60 Normal [facility] Comment on above: Order Comment: Order added by Discern Expert. Performed By: #### 1 [id number] ####KADEN UloBown9440 [place] [address] U BhCG Qlton 03-20-2017 HCG.beta subunit Qn Negative Normal Neg [facility] Comment on above: Performed By: #### 2 911567 ####KADEN Urinalysis Manual Briealtfth6336 [place] [id number] UA Completeon 03-20-2017 UA Blood Negative Normal Negative [facility] Comment on above: Performed By: #### 8 3204988 ####KADEN Urinalysis Automated Godatfpwxz4938 [place] [address] UA Amorph Chastity 1+ /HPF Abnormal None [facility] Comment on above: Performed By: #### 8 0459406 ####KADEN Urinalysis Automated Byrgevsbwi1521 [place] [address] UA Bacteria 2+ /HPF Abnormal None [facility] Comment on above: Performed By: #### 8 4779872 ####KADEN Urinalysis Automated Pgaitnaenh3985 [place] [address] UA Clarity Cloudy Abnormal Clear [facility] Comment on above: Performed By: #### 8 0688744 ####KADEN Urinalysis Automated Dhqloejsgl1496[address] [place] [address] UA Leuk Est 1+ Abnormal Negative [facility] Comment on above: Performed By: #### 8 [id number] ####KADEN Urinalysis Automated Virmwrgyws4[address] [place] [address] UA Mucous Occasional Abnormal [facility] Comment on above: Performed By: #### [id number] ####KADEN Urinalysis Automated [id number] [place] [address] UA Nitrite Negative Normal Negative [facility] Comment on above: Performed By: #### [id number] ####KADEN Urinalysis Automated [id number] [place] [address] UA pH 6.0 Normal 4.6-8.0 [facility] Comment on above: Performed By: #### [id number] ####KADEN Urinalysis Automated [id number] [place] [address] UA Protein 1+ Abnormal Negative [facility] Comment on above: Performed By: #### [id number] ####KADEN Urinalysis Automated [id number] [place] [address] UA Spec Grav 1.019 Normal 1.003-1.03 0 [facility] Comment on above: Performed By: #### [id number] ####KADEN Urinalysis Automated [id number] [place] [address] UA Squam Epithelial 5-10 Abnormal 0-5 [facility] Comment on above: Performed By: #### [id number] ####KADEN Urinalysis Automated [id number] [place] [address] UA Urobilinogen Negative Normal [facility] Comment on above: Performed By: #### [id number] ####KADEN Urinalysis Automated [id number] [place] [address] UA WBC >50 Abnormal 0-5 [facility] Comment on above: Performed By: #### 8 [id number] ####KADEN Urinalysis Automated [id number] [place] [address] Urine, color Yellow Normal Yellow [facility] Comment on above: Performed By: #### 8 [id number] ####KADEN Urinalysis Automated [id number] [place] [address] Urine, erythrocytes 5-10 Abnormal 0-3 [facility] Comment on above: Performed By: #### 8 [id number] ####KADEN Urinalysis Automated Vvkzutjkcr9895 [place] [address] Urine, glucose Negative Normal Negative [facility] Comment on above: Performed By: #### 8 [id number] ####KADEN Urinalysis Automated [id number] [place] [address] Urine, ketones presence Negative Normal Negative [facility] Comment on above: Performed By: #### 8 [id number] ####KADEN Urinalysis Automated [id number] [place] [address] Urine, urobilinogen Negative Normal Negative [facility] Comment on above: Performed By: #### 8 [id number] ####KADEN Urinalysis Automated [address]otuhtfx9036 [place] [address] Vital Signs Date Time Vital Sign Value Performing Clinician Facility 07-18-2023 10:30-0500 Body mass index (BMI) [Ratio] 26.7 kg/m2 [employer] Work Phone: [facility] 07-18-2023 10:30-0500 Body weight 75.03 kg [employer] Work Phone: [facility] 07-18-2023 10:30-0500 Diastolic blood pressure 68 mm[Hg] [employer] Work Phone: [facility] 07-18-2023 10:30-0500 Systolic blood pressure 106 mm[Hg] Cuong Ortiz DO Work Phone: [facility] 02-11-2023 14:13-0400 Body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
== END 2023-10-26 14:35 | disposition home or self-care (01) ==
LOC: FBCO 05:51 → FBC 13:58
PROVIDERS: PCP Physician Assistant; Visit Provider Obstetrics & Gynecology
DX: O26.893 Other specified pregnancy related conditions, third trimester (principal)
CPT/HCPCS: 59025

== ENCOUNTER 2023-10-30 07:09 | Outpatient (OUT) | payer MEDICAID, SELFPAY ==
--- OUTSIDE RECORDS SUMMARY | 2023-10-30 07:13 | XMS_ITS | CCD ---
Author Organization [facility] Care Team Providers Care Coke Burner Name Role Phone CLARA JAMA Unavailable Unavail able SERENITY MALDONADO Unavailable Unavailable OKSANA CARO Unavailable UnavaNAGA Hull Unavailable Unavailable BARBOSA, LUKE MALIK Unavailable Unavailable PatrickSalomon terrell R Unavailable Unavailable Patrick, Salomon R Unavailable Unavailable Barbosa, Luke Unavailable Unavailable [place], Christian A Unavailable Unavailable Barbosa, Luke Unavailable Unavailable Shekhar, Christian A Unavailable Unavailable Barbosa, Luke Unavailable Unavailable [place], Christian A Unavailable Unavailable Barbosa, Luke Unavailable Unavailable [place], Christian A Unavailable Unavailable Barbosa, Luke Unavailable Unavailable [place], Christian A Unavailable Unavailable Shekhar, Christian A Unavailable Unavailable Barbosa, Luke Unavailable Unavailable [place], Christian A Unavailable Unavailable Barbosa, Luke Unavailable Unavailable [place], Christian A Unavailable Unavailable [place], Christian A Unavailable Unavailable Barbosa, Luke Unavailable Unavailable Barbosa, Luke Unavailable Unavailable Woo, Emiliano Unavailable Unavailable Woo, Emiliano Unavailable Unavailable Patrick, Salomon R Unavailable Unavailable Barbosa, Luke Unavailable Unavailable Barbosa, Luke Unavailable Unavailable Oscar, Jag W Unavailable Unavailable Crowheart, Jag W Unavailable Unavailable [place], Christian A Unavailable Unavailable Barbosa, Luke Unavailable [...] Unavail able Oscar, Jag W Unavailable Unavailable Crowheart, Jag W Unavailable Unavailable Barbosa, Luke Unavailable Unavailable No Doctor Assigned, Nodr Unavailable Unavail able SavageGamaliel M Unavailable Unavailable Barbosa, Luke Unavailable Unavailable Hannah, Aaron A Unavailable Unavailable Hannah, Aaron A Unavailable Unavailable Patrick, Salomon R Unavailable Unavailable Patrick, Salomon R Unavailable Unavailable Barbosa, Luke Unavailable Unavailable Frank, Juanita Unavailable Unavailable Frank, Juanita Unavailable Unavailable Barbosa, Luke Unavailable Unavailable [place], Christian A Unavailable Unavailable Shekhar, Christian A Unavailable Unavailable Barbosa, Luke Unavailable Unavailable [place], Christian A Unavailable Unavailable Barbosa, Luke Unavailable Unavailable Barbosa, Luke Unavailable Unavailable Oscar, Jag W Unavailable Unavailable Oscar, Jag W Unavailable Unavailable [place], Christian A Unavailable Unavailable Barbosa, Luke Unavailable [...] CLARA Referring Unavailable [facility] Primary Care Unavailable JMAA, CLARA Referring Unavailable [facility] Primary Care Unavailable JAMA, CLARA Admitting Unavailable [facility] Primary Care Unavailable SERENITY MALDONADO Consulting Unavailable EHRENBERG, OKSANA Attending Unavailable SADAF Wyatt Primary Care Provider SADAF Hess Emergency Provider SADAF Wyatt Primary Care Provider Meagan [facility] Elle E Emergency Provider DIANA .DR ACOSTA Consulting Unavailable [facility] Primary Care Unavailable DIANA ., DR ACOSTA Attending Unavailable DIANA ., DR ACOSTA Admitting Unavailable DIANA ., DR ACOSTA Admitting Unavailable DIANA ., DR ACOSTA Attending Unavailable [facility] Primary Care Unavailable DIANA ., DR ACOSTA Consulting Unavailable SUSI, DR FELECIA Chadwick Consulting Unavailable [facility] Primary Care Unavailable KARASIK ., DR CAMACHO Admitting Unavailabl e KARASIK ., DR CAMACHO Attending Unavailabl e KARASIK ., DR CAMACHO Consulting Unavailabl e WEST, DR GAMALIEL Fischer Consulting Unavailable DIANA ., DR ACOSTA Consulting Unavailable ZIEBER, DR FELECIA Chadwick Consulting Unavailable WILLIAMS ., BARB Admitting Unavailable WILLIAMS ., BARB Attending Unavailable [facility] Primary Care Unavailable WILLIAMS ., BARB Consulting Unavailable DIANA ., DR ACOSTA Admitting Unavailable DIANA ., DR ACOSTA Attending Unavailable [facility] Primary Care Unavailable DIANA ., DR ACOSTA Consulting Unavailable [facility] Primary Care Unavailable KARASIK ., DR CAMACHO Admitting Unavailabl e KARASIK ., DR CAMACHO Attending Unavailabl e KARASIK ., DR CAMACHO Consulting Unavailabl e DIANA ., DR ACOSTA Admitting Unavailable DIANA ., DR ACOSTA Attending Unavailable [facility] Primary Care Unavailable DIANA ., DR ACOSTA Consulting Unavailable ZIEBER, DR FELECIA Chadwick Consulting Unavailable DIANA ., DR ACOSTA Admitting Unavailable DIANA ., DR ACOSTA Attending Unavailable [facility] Primary Care Unavailable DIANA ., DR ACOSTA Consulting Unavailable ZIEBER, DR FELECIA Chadwick Consulting Unavailable PRATIMA, BRODIE Consulting Unavailable DIANA ., DR ACOSTA Consulting Unavailable [facility] Primary Care Unavailable DIANA ., DR ACOSTA Attending Unavailable DIANA ., DR ACOSTA Admitting Unavailable ZIEBER, DR FELECIA Chadwick Consulting Unavailable DIANA ., DR ACOSTA Consulting Unavailable [facility] Primary Care Unavailable DIANA ., DR ACOSTA Attending Unavailable DIANA ., DR ACOSTA Admitting Unavailable DIANA ., DR ACOSTA Admitting Unavailable DIANA ., DR ACOSTA Attending Unavailable [facility] Primary Care Unavailable DIANA ., DR ACOSTA Consulting Unavailable ZIEBER, DR FELECIA Chadwick Consulting Unavailable DIANA ., DR ACOSTA Admitting Unavailable DIANA ., DR ACOSTA Attending Unavailable [facility] Primary Care Unavailable WEST, DR GAMALIEL Fischer Consulting Unavailable DIANA ., DR ACOSTA Consulting Unavailable [facility] Primary Care Unavailable KARASIK ., DR CAMACHO Admitting Unavailabl e KARASIK ., DR CAMACHO Attending Unavailabl e KARASIK ., DR CAMACHO Consulting Unavailabl e DIANA ., DR ACOSTA Consulting Unavailable ZIEBER, DR FELECIA Chadwick Consulting Unavailable DIANA ., DR ACOSTA Admitting Unavailable DIANA ., DR ACOSTA Attending Unavailable [facility] Primary Care Unavailable WEST, DR GAMALIEL Fischer Consulting Unavailable DIANA ., DR ACOSTA Consulting Unavailable DIANA ., DR ACOSTA Admitting Unavailable DIANA ., DR ACOSTA Attending Unavailable [facility] Primary Care Unavailable DIANA ., DR ACOSTA Consulting Unavailable DIANA ., DR ACOSTA Admitting Unavailable DIANA ., DR ACOSTA Attending Unavailable [facility] Primary Care Unavailable DIANA ., DR ACOSTA Consulting Unavailable ZIEBER, DR FELECIA Chadwick Consulting Unavailable DIANA ., DR ACOSTA Admitting Unavailable DIANA ., DR ACOSTA Attending Unavailable [facility] Primary Care Unavailable DIANA ., DR ACOSTA Consulting Unavailable DIANA ., DR ACOSTA Admitting Unavailable DIANA ., DR ACOSTA Attending Unavailable [facility] Primary Care Unavailable DIANA ., DR ACOSTA Consulting Unavailable [facility] Primary Care Unavailable DIANA ., DR ACOSTA Attending Unavailable DIANA ., DR ACOSTA Admitting Unavailable DIANA ., DR ACOSTA Admitting Unavailable DIANA ., DR ACOSTA Attending Unavailable [facility] Primary Care Unavailable DIANA ., DR ACOSTA Admitting Unavailable DIANA ., DR ACOSTA Attending Unavailable [facility] Primary Care Unavailable KARASIK ., DR CAMACHO Consulting Unavailabl e DIANA ., DR ACOSTA Consulting Unavailable DIANA ., DR ACOSTA Procedure Practitioner Unavail able ORLANDO PRASAD Consulting Unavailable JACQUES FLETCHER Consulting Unavailable DIANA ., DR ACOSTA Admitting Unavailable DIANA ., DR ACOSTA Attending Unavailable [facility] Primary Care Unavailable KARASIK ., DR CAMACHO Consulting Unavailabl e ZIEBER, DR FELECIA Chadwick Consulting Unavailable SADAF Wyatt Primary Care Provider MD Farhan Jean Attending Provider Poe, DO Oscar Emergency Provider Itzkowitz, DO Arden Admit Provider Itzkoceec, DO Arden Attending Provider FRED Ventura Other Provider UnavailMD Juan Edwards Other Provider BRISA MoniqueC Ailyn Other Provider [phone] MD Jacques Valerio Other Provider MD Edith Urias Other Provider SADAF Wyatt Primary Care Provider [place], OVERNIGHT CAREGIVER-BC Elle E Emergency Provider [phone] BRANNON Valencia Emergency Provider Andie Wyatt PA-C [...] [BEES] Propensity to adverse reactions (disorder) 8 [facility] Repository (2 sources) Mold spore; Translations: [MOLD SPORES] Propensity to adverse reactions (disorder) 8 [facility] Repository (18 sources) Penicillins; Translations: [PENICILLINS] Propensity to adverse reactions to drug (disorder) 4 [facility] Repository (12 sources) Sulfonamides (Antibiotic); Translations: [SULFA (SULFONAMIDE ANTIBIOTICS)] Propensity to adverse reactions to drug (disorder) 8 [facility] Repository (1 source) Bee/Wasp/Ant venom; Translations: [Bee Stings] Propensity to adverse reactions to drug (disorder) [facility] Repository (1 source) mold extract; Translations: [Mold] Drug Allergy [facility] Repository (1 source) Sulfonamides (Antibiotic); Translations: [sulfa drugs] Propensity to adverse reactions to drug (disorder) [facility] Repository (4 sources) bee venom; Translations: [BEE VENOM] Propensity to adverse reactions to drug (disorder) 8 [facility] Repository (1 source) OTHER; Translations: [OTHER] Propensity to adverse reactions to food (disorder) 8 [facility] Repository (1 source) MOLDS & SMUTS; Translations: [MOLDS & SMUTS] Propensity to adverse reactions to drug (disorder) 8 [facility] Repository (4 sources) SULFA ANTIBIOTICS; Translations: [SULFA ANTIBIOTICS] Propensity to adverse reactions to drug (disorder) 8 [facility] Repository (1 source) Sulfonamides (Antibiotic) Drug allergy (disorder) 4 [facility] Repository (4 sources) Bee Venom Protein (Honey Bee); Translations: [BEE VENOM PROTEIN (HONEY BEE)] Propensity to adverse reactions to drug 2 [facility] (1 source) Penicillin Drug Allergy 2 [facility] Repository (1 source) Sulfacetamide Drug Allergy 2 [facility] Repository Medications Current Medications Medication Drug Class(es) [...] mouth in the morning. 0 02/27/2023 Active [place] (No Known Home Meds) (2 sources) Start: 12-18-2022 [place] (No Known Home Meds) Active December 18, [...] (-1 ORAL) Take by mouth. 0 Active Ujpvxzxv-Tao-Ts-FA (, w/Iron & FA,) 27-0.8 MG tablet (3 sources) Xfgbqayi-Mjr-Ec-FA (, w/Iron & FA,) 27-0.8 MG tablet 1 (one) time each day at the same time. 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 This test was developed and its performance characteristics determined by [employer]. It has not been cleared or approved by the Food and Drug Administration. Performed at: [facility] [address] [place], [place] [id number] Director Of Capital Giving: Oz Harkins [facility], Phone: [phone] GEST. AGE ON COLLECTION DATE 20.4 . [...] Customer Services to discuss available options. The [employer] recommends amniocentesis [...] [facility] N N LMP [id number] 3 16 N 1 Y 159 N [...] Urobilinogen, UA 1.0 0.2 - 12 mg/dL [facility] ABO/Rh Retypeon 12-19-2022 ABO/RH Recheck Result Positive Normal [facility] Comment on above: Result Comment: PERF ORMED BY: [facility] [address] [place] [address] PATHOLOGIST CREDIT AND COLLECTIONS ANALYST MALVIN MEDLEY M.D. Amphetamine Screen Ql (U)Ord ered By: sOcar Poe on 12-19-2022 Amphetamines Ql (U) Negative Negative [facility] Amylaseon 12-19-2022 Amylase [Catalytic activity/Vol] 35 U/L Normal 29-103 [facility] Comment on above: Performed By: #### C BC, CREAT, GLU, LYTES, AST, ETOH, BARB, LIPASE, CK, BUN ####[facility] [id number] Aspartate Amino Transferaseo n 12-19-2022 AST [Catalytic activity/Vol] 26 U/L Normal 13-39 [facility] Comment on above: Performed By: #### C BC, CREAT, GLU, LYTES, AST, ETOH, BARB, LIPASE, CK, BUN ####[facility] [id number] [address] Automated erythrocytes count in urine sediment (number/area)Ordered By: Oscar Poe on 12-19-2022 RBC Auto (Urine sed) [#/Area] 5-9 [HPF] 0-4 [facility] Automated leukocytes count i n urine sediment (number/area)Ordered By: Oscar Poe on 12-19-2022 WBC Auto (Urine sed) [#/Area] 10-19 [HPF] 0-4 [facility] Barbiturates [Presence] in U rine by Screen methodOrdered By: Oscar Poe on 12-19-2022 Barbiturates Screen Ql (U) Negative Negative [facility] Benzodiazepines Screen Ql (U )Ordered By: Oscar Poe on 12-19-2022 Benzodiazepines Ql (U) Negative Negative [facility] Benzoylecgonine [Presence] i n Urine by Screen methodOrdered By: Oscar Poe on 12-19-2022 Benzoylecgonine Screen Ql (U) Negative Negative [facility] Bilirubin Test strip Ql (U)O rdered By: Oscar Poe on 12-19-2022 Bilirubin Ql (U) Negative Negative [facility] Blood Urea Nitrogenon 2022 Urea nitrogen [Mass/Vol] 21 mg/dL Normal 7-25 [facility] Comment on above: Performed By: #### C BC, CREAT, GLU, LYTES, AST, ETOH, BARB, LIPASE, CK, BUN ####[facility] [id number] cervical spine wo conon 0 12-19-2022 CT cervical spine wo con [facility] [place] [address] [place] Scan Report Signed Patient: Zuleika Wyatt MR#: [id number] : 1990 Acct:[id number] Age/Sex: 32 / F ADM Date: 12/19/22 Loc: 4 Room: 7G6115-6 Type: ADM INOo Attending Dr: Arden Orozco DO Copies to: DO Arden Jefferson DO Ordering Provider: Oscar Poe DO Date of Service: 12/18/22 CT/CT cervical spine wo con: f ([id number]) CT/CT head/brain wo con: f CT BRAIN [...] Pimentel Jr., D.O.12/19/2022 10:25 AM Dictation Location: [place] [address] Transcribed By: [facility] 12/19/22 1025 Dictated By: Rah Pimentel Jr, DO 12/19/22 1016 Signed By: 12/19/22 10[address] [facility] [address] head/brain wo conon 12-19 CT head/brain wo con [facility] [place] [address] CT Scan Report Signed Patient: Zuleika Wyatt MR#: [id number] : 1990 Acct:[id number] Age/Sex: 32 / F ADM Date: 12/19/22 Loc: Room: [address] [place] [address] Type: DIS INOo Attending Dr: Arden Orozco [...] HERNIATION. Impression dictated by: Rah Pimentel Jr., Sammie12/19/2022 3:28 PM Dictation Location: [place] [address] Transcribed By: DONTE 12/19/22 1528 Dictated By: Rah Pimentel Jr, DO 12/19/22 1524 Signed By: 12/19/22 15[address] [facility] [address] lumbar spine wo [facility] CT lumbar spine wo [facility] [place] [address] CT Scan Report Signed Patient: Zuleika Wyatt MR#: [id number] : 1990 Acct:[id number] Age/Sex: 32 / F ADM Date: 12/19/22 Loc: Room: [address] [place] [address] Type: ADM INOo Attending Dr: Arden Orozco DO Copies to: DO Arden Jefferson DO Ordering Provider: Oscar Poe DO Date of Service: 12/18/22 CT/CT thoracic spine wo con: f ([id number]) CT/CT lumbar spine wo con: f CT [...] narrowing or hypertrophy. The ribs within the vftpq-su-drfr appear intact. No paraspinal soft tissue abnormalities are present. The ascending aorta is mildly ectatic. The heart is not fully imaged though it is at least borderline prominent. There is no consolidation, pleural effusion or pneumothorax within the gkdqr-sw-hrpl. No lumbar compression fractures are identified. There [...] The intra-abdominal and pelvic structures within the kqqpg-qu-kocy show no contributory findings. CT/CT thoracic spine wo con IMPRESSION: MILD THORACIC SCOLIOSIS. NO ACUTE BONY INJURY INVOLVING THE THORACIC OR LUMBAR SPINE. Impression dictated by: Adela Mahan M.D.12/19/2022 10:36 AM Dictation Location: [place] [address] Transcribed By: [facility] 12/19/22 1036 Dictated By: Adela Mahan MD 12/19/22 1026 Signed By: 12/19/22 1036 Normal [facility] Cannabinoids [Presence] in U rine by Screen methodOrdered By: Oscar Poe on 12-19-2022 Cannabinoids Screen Ql (U) Positive Negative [facility] Comment on above: These are unconfirme d results and should not be used for legal purposes. Drug Cut-Off Concentration: AMPH 1000 ng/mL SEEMA 200 ng/mL LAZ 200 ng/mL COCM 300 ng/mL OP 300 ng/mL PCP 25 ng/mL THC 20 ng/mL Color Auto (U)Ordered By: Fernando Poe on 12-19-2022 Color (U) Yellow Yellow [facility] Complete Blood Count Auto Di ffon 12-19-2022 Basophils (Bld) [#/Vol] 0.1 10*3/uL Normal 0.0-0.2 [facility] Comment on above: Result Comment: PERF ORMED BY: [facility] [address] [place] [address] PATHOLOGIST CREDIT AND COLLECTIONS ANALYST MLAVIN MEDLEY M.D. Performed By: #### C BC, CREAT, GLU, LYTES, AST, ETOH, BARB, LIPASE, CK, BUN ####[address] Basophils/100 WBC (Bld) 0.7 % Normal . [facility] Comment on above: Performed By: #### C BC, CREAT, GLU, LYTES, AST, ETOH, BARB, LIPASE, CK, BUN ####[address] Eosinophils (Bld) [#/Vol] 0.0 10*3/uL Normal 0.0-0.45 [facility] Comment on above: Performed By: #### C BC, CREAT, GLU, LYTES, AST, ETOH, BARB, LIPASE, CK, BUN ####[address] Eosinophils/100 WBC (Bld) 0.2 % Normal . [facility] Comment on above: Performed By: #### C BC, CREAT, GLU, LYTES, AST, ETOH, BARB, LIPASE, CK, BUN ####[address] Erythrocyte distribution width (RBC) [Ratio] 14.4 % Normal 11.9-15.3 [facility] Comment on above: Performed By: #### C BC, CREAT, GLU, LYTES, AST, ETOH, BARB, LIPASE, CK, BUN ####[address] Hematocrit (Bld) [Volume fraction] 36.2 % Normal 34.0-46.4 [facility] Comment on above: Performed By: #### C BC, CREAT, GLU, LYTES, AST, ETOH, BARB, LIPASE, CK, BUN ####[address] Hemoglobin (Bld) [Mass/Vol] 11.9 g/dL Normal 11.8-15.4 [facility] Comment on above: Performed By: #### C BC, CREAT, GLU, LYTES, AST, ETOH, BARB, LIPASE, CK, BUN ####[address] Lymphocytes (Bld) [#/Vol] 2.2 10*3/uL Normal 1.00-4.8 [facility] Comment on above: Performed By: #### C BC, CREAT, GLU, LYTES, AST, ETOH, BARB, LIPASE, CK, BUN ####[address] Lymphocytes/100 WBC (Bld) 21.8 % Normal . [facility] Comment on above: Performed By: #### C BC, CREAT, GLU, LYTES, AST, ETOH, BARB, LIPASE, CK, BUN ####[address] MCH (RBC) [Entitic mass] 26.9 pg Normal 24.7-34.3 [facility] Comment on above: Performed By: #### C BC, CREAT, GLU, LYTES, AST, ETOH, BARB, LIPASE, CK, BUN ####[address] MCV (RBC) [Entitic vol] 82.1 fL Normal 80-100 [facility] Comment on above: Performed By: #### C BC, CREAT, GLU, LYTES, AST, ETOH, BARB, LIPASE, CK, BUN ####[address] Mean Corpuscular HGB Conc 32.8 g/dL Normal 32.0-35.0 [facility] Comment on above: Performed By: #### C BC, CREAT, GLU, LYTES, AST, ETOH, BARB, LIPASE, CK, BUN ####[address] Monocytes (Bld) [#/Vol] 0.8 10*3/uL Normal 0.0-0.8 [facility] Comment on above: Performed By: #### C BC, CREAT, GLU, LYTES, AST, ETOH, BARB, LIPASE, CK, BUN ####[address] Monocytes/100 WBC (Bld) 22.19 % High 0.00-20.00 [facility] Comment on above: Result Comment: For adults in ED, MDW > 20.0 may be associated with a higher risk of sepsis during the first 12 hrs of hospital admission Performed By: #### C BC, CREAT, GLU, LYTES, AST, ETOH, BARB, LIPASE, CK, BUN ####[address] Monocytes/100 WBC (Bld) 7.4 % Normal . [facility] Comment on above: Performed By: #### C BC, CREAT, GLU, LYTES, AST, ETOH, BARB, LIPASE, CK, BUN ####[address] Neutrophils (Bld) [#/Vol] 7.2 10*3/uL Normal 1.8-7.7 [facility] Comment on above: Performed By: #### C BC, CREAT, GLU, LYTES, AST, ETOH, BARB, LIPASE, CK, BUN ####[address] Neutrophils/100 WBC (Bld) 69.9 % Normal . [facility] Comment on above: Performed By: #### C BC, CREAT, GLU, LYTES, AST, ETOH, BARB, LIPASE, CK, BUN ####[address] NRBC% 0.1 /100{WBC} Normal 0-0.5 [facility] Comment on above: Performed By: #### C BC, CREAT, GLU, LYTES, AST, ETOH, BARB, LIPASE, CK, BUN ####[address] Platelet mean volume (Bld) [Entitic vol] 8.1 fL Normal 6.3-10.7 [facility] Comment on above: Performed By: #### C BC, CREAT, GLU, LYTES, AST, ETOH, BARB, LIPASE, CK, BUN ####[address] Platelets (Bld) [#/Vol] 223 10*3/uL Normal 150-450 [facility] Comment on above: Performed By: #### C BC, CREAT, GLU, LYTES, AST, ETOH, BARB, LIPASE, CK, BUN ####[address] RBC (Bld) [#/Vol] 4.42 10*6/uL Normal 3.60-5.00 [facility] Comment on above: Performed By: #### C BC, CREAT, GLU, LYTES, AST, ETOH, BARB, LIPASE, CK, BUN ####[address] WBC (Bld) [#/Vol] 10.3 10*3/uL Normal 3.8-11.6 [facility] Comment on above: Performed By: #### C BC, CREAT, GLU, LYTES, AST, ETOH, BARB, LIPASE, CK, BUN ####[address] Creatine Kinaseon 12-19-2022 CK [Catalytic activity/Vol] 50 U/L Normal 30-223 [facility] Comment on above: Result Comment: PERF ORMED BY: [facility] [address] [place] [place] [address] PATHOLOGIST CREDIT AND COLLECTIONS ANALYST MALVIN MEDLEY M.D. Performed By: #### C BC, CREAT, GLU, LYTES, AST, ETOH, BARB, LIPASE, CK, BUN ####[address] Creatinineon 12-19-2022 Creatinine [Mass/Vol] 0.84 mg/dL Normal 0.60-1.20 [facility] Comment on above: Performed By: #### C BC, CREAT, GLU, LYTES, AST, ETOH, BARB, LIPASE, CK, BUN ####[facility] [place] [address] [place] Creatinine Clr Calc Pharmacy 98.76 [facility] Comment on above: Performed By: #### C BC, CREAT, GLU, LYTES, AST, ETOH, BARB, LIPASE, CK, BUN ####[facility] GFR/1.73 sq M.predicted MDRD (S/P/Bld) [Vol rate/Area] mL/min/{1.73_m2} [facility] Comment on above: Performed By: #### C BC, CREAT, GLU, LYTES, AST, ETOH, BARB, LIPASE, CK, BUN ####[facility] Dipstick and Microscopicon 0 12-19-2022 Appearance (U) Clear Normal Clear [facility] Comment on above: Order Comment: Name Collection Type:: Clean-Voided Midstream Performed By: #### U RDS, UHCG, CUU, ADDONUAPLUS #### [facility] [address] [place] [address] [place] Bacteria,Urine None Seen Normal None Seen [facility] Comment on above: Order Comment: Name Collection Type:: Clean-Voided Midstream Performed By: #### U RDS, UHCG, CUU, ADDONUAPLUS #### [facility] [address] [place] [address] [place] Bilirubin,Urine Negative Normal Negative [facility] Comment on above: Order Comment: Name Collection Type:: Clean-Voided Midstream Performed By: #### U RDS, UHCG, CUU, ADDONUAPLUS #### [facility] [address] [place] [address] [place] Color (U) Yellow Normal Yellow [facility] Comment on above: Order Comment: Name Collection Type:: Clean-Voided Midstream Performed By: #### U RDS, UHCG, CUU, ADDONUAPLUS #### [facility] [address] [place] [address] [place] Glucose Ql (U) Normal Normal Normal [facility] Comment on above: Order Comment: Name Collection Type:: Clean-Voided Midstream Performed By: #### U RDS, UHCG, CUU, ADDONUAPLUS #### [facility] [address] [place] [address] Hyaline Casts,Urine 0-8 Normal 0-8 [facility] Comment on above: Order Comment: Name Collection Type:: Clean-Voided Midstream Performed By: #### U RDS, UHCG, CUU, ADDONUAPLUS #### [facility] [address] [place] [address] Ketones Ql (U) 1+ High Negative [facility] Comment on above: Order Comment: Name Collection Type:: Clean-Voided Midstream Performed By: #### U RDS, UHCG, CUU, ADDONUAPLUS #### [facility] [address] [place] [address] Leukocyte esterase Test strip Ql (U) 2+ High Negative [facility] Comment on above: Order Comment: Name Collection Type:: Clean-Voided Midstream Performed By: #### U RDS, UHCG, CUU, ADDONUAPLUS #### [facility] [address] [place] [address] Nitrite,Urine Negative Normal Negative [facility] Comment on above: Order Comment: Name Collection Type:: Clean-Voided Midstream Performed By: #### U RDS, UHCG, CUU, ADDONUAPLUS #### [facility] [address] [place] [address] [place] Occult Blood,Urine Negative Normal Negative [facility] Comment on above: Order Comment: Name Collection Type:: Clean-Voided Midstream Performed By: #### U RDS, UHCG, CUU, ADDONUAPLUS #### [facility] [address] [place] [address] pH (U) 5.5 [pH] Normal 5.0-9.0 [facility] Comment on above: Order Comment: Name Collection Type:: Clean-Voided Midstream Performed By: #### U RDS, UHCG, CUU, ADDONUAPLUS #### [facility] [address] [place] [address] [place] Protein,Urine Negative Normal Negative [facility] Comment on above: Order Comment: Name Collection Type:: Clean-Voided Midstream Performed By: #### U RDS, UHCG, CUU, ADDONUAPLUS #### [facility] [address] [place] [address] [place] RBC,Urine 5-9 High 0-4 [facility] Comment on above: Order Comment: Name Collection Type:: Clean-Voided Midstream Performed By: #### U RDS, UHCG, CUU, ADDONUAPLUS #### [facility] [address] [place] [address] Specificy [place],Urine 1.025 Normal 1.001-1.03 0 [facility] Comment on above: Order Comment: Name Collection Type:: Clean-Voided Midstream Performed By: #### U RDS, UHCG, CUU, ADDONUAPLUS #### [facility] [address] [place] [address] Squamous Epithelial Cell,Urine 3-4 High 0-2 [facility] Comment on above: Order Comment: Name Collection Type:: Clean-Voided Midstream Performed By: #### U RDS, UHCG, CUU, ADDONUAPLUS #### [facility] [address] [place] [address] Urobilinogen,Urine Normal Normal Normal [facility] Comment on above: Order Comment: Name Collection Type:: Clean-Voided Midstream Performed By: #### U RDS, UHCG, CUU, ADDONUAPLUS #### [facility] [address] [place] [address] [place] WBC,Urine 10-19 High 0-4 [facility] Comment on above: Order Comment: Name Collection Type:: Clean-Voided Midstream Performed By: #### U RDS, UHCG, CUU, ADDONUAPLUS #### [facility] [address] [place] [address] [place] Drug Screen,Urineon 12-20-19 Amphetamine Screen,Urine Negative Normal Negative [facility] Comment on above: Performed By: #### U RDS, UHCG, CUU, ADDONUAPLUS #### [facility] [address] [place] [address] [place] Barbiturate Screen,Urine Negative Normal Negative [facility] Comment on above: Performed By: #### U RDS, UHCG, CUU, ADDONUAPLUS #### [facility] [address] [place] [address] [place] Benzodiazepines Screen,Urine Negative Normal Negative [facility] Comment on above: Performed By: #### U RDS, UHCG, CUU, ADDONUAPLUS #### [address] Cannabinoid Screen,Urine Positive High Negative [facility] Comment on above: Result Comment: Thes e are unconfirmed results and should not be used for legal purposes. Drug Cut-Off Concentration: AMPH 1000 ng/mL SEEMA 200 ng/mL LAZ 200 ng/mL COCM 300 ng/mL OP 300 ng/mL PCP 25 ng/mL THC 20 ng/mL PERFORMED BY: [place] [address] PATHOLOGIST CREDIT AND COLLECTIONS ANALYST MALVIN MEDLEY M.D. Performed By: #### U RDS, UHCG, CUU, ADDONUAPLUS #### [address] Cocaine Screen,Urine Negative Normal Negative [facility] Comment on above: Performed By: #### U RDS, UHCG, CUU, ADDONUAPLUS #### [place] [address] [place] Opiate Screen,Urine Negative Normal Negative [facility] Comment on above: Performed By: #### U RDS, UHCG, CUU, ADDONUAPLUS #### [place] [address] [place] Phencyclidine Screen,Urine Negative Normal Negative [facility] Comment on above: Performed By: #### U RDS, UHCG, CUU, ADDONUAPLUS #### [place] [address] [place] ECG 12 lead ECGon 12-19-2022 ECG 12 lead ECG [facility] [address] [place] [address] [place] [id number] Electrocardiograph Report Signed Patient: Zuleika Wyatt MR#: [id number] : 1990 Acct:[id number] Age/Sex: 32 / F ADM Date: 12/19/22 Loc: Room: [address] [place] [address] Type: DIS INOo Attending Dr: Arden Orozco [...] ECGs available Confirmed by OSCAR POE DO ([id number]) on 12/19/2022 10:18:39 PM Referred By: Electronically Signed By:OSCAR POE DO Transcribed By: MUS Signed By Oscar Poe DO 12/19 Normal [facility] Electrolyteson 12-19-2022 Anion gap [Moles/Vol] 14.5 mmol/L Normal 6.0-15.0 [facility] Comment on above: Performed By: #### C BC, CREAT, GLU, LYTES, AST, ETOH, BARB, LIPASE, CK, BUN ####[facility] [place] [id number] [place] Chloride [Moles/Vol] 105 mmol/L Normal 98-107 [facility] Comment on above: Performed By: #### C BC, CREAT, GLU, LYTES, AST, ETOH, BARB, LIPASE, CK, BUN ####[facility] [place] [id number] [facility] CO2 [Moles/Vol] 20.0 mmol/L Low 21.0-31.0 [facility] Comment on above: Performed By: #### C BC, CREAT, GLU, LYTES, AST, ETOH, BARB, LIPASE, CK, BUN ####[place] [id number] [address] Potassium [Moles/Vol] 3.5 mmol/L Normal 3.5-5.1 [facility] Comment on above: Performed By: #### C BC, CREAT, GLU, LYTES, AST, ETOH, BARB, LIPASE, CK, BUN ####[place] [address] [address] Sodium [Moles/Vol] 136 mmol/L Normal 136-145 [facility] Comment on above: Performed By: #### C BC, CREAT, GLU, LYTES, AST, ETOH, BARB, LIPASE, CK, BUN ####[place] [id number] [address] Ethyl Alcohol Profileon Ethanol [Mass/Vol] mg/dL Normal [facility] Comment on above: Performed By: #### C BC, CREAT, GLU, LYTES, AST, ETOH, BARB, LIPASE, CK, BUN ####[address] Percent Ethanol Not performed Normal [facility] Comment on above: Result Comment: PERF ORMED BY: [facility] [address] [place] [address] PATHOLOGIST CREDIT AND COLLECTIONS ANALYST MALVIN MEDLEY M.D. Performed By: #### C BC, CREAT, GLU, LYTES, AST, ETOH, BARB, LIPASE, CK, BUN ####[address] Glucoseon 12-19-2022 Glucose [Mass/Vol] 93 mg/dL Normal 70-100 [facility] Comment on above: Result Comment: [place] Glucose Reference Range is dependent on time and content of last meal. Glucose of more than 200 mg/dL in a nonstressed, ambulatory subject supports the diagnosis of Diabetes Mellitus. ADA recommended reference range Performed By: #### C BC, CREAT, GLU, LYTES, AST, ETOH, BARB, LIPASE, CK, BUN ####[facility] [address] HCG ( test) IA.rapi d Ql (U)Ordered By: Oscar Poe on 12-19-2022 HCG ( test) Ql (U) Negative [facility] HCG,Qualitative Serumon 07-0 HCG,Qualitative Serum Negative Normal [facility] Comment on above: Result Comment: PERF ORMED BY: [facility] [address] [place] [address] PATHOLOGIST CREDIT AND COLLECTIONS ANALYST MALVIN MEDLEY M.D. Performed By: #### H CGQUAL #### [facility] [address] [place] [address] HCG,Urineon 12-19-2022 Beta HCG ( test) Ql (U) Negative Normal [facility] Comment on above: Order Comment: Name Collection Type:: Clean-Voided Midstream Result Comment: PERF ORMED BY: [place] [address] PATHOLOGIST CREDIT AND COLLECTIONS ANALYST MALVIN MEDLEY M.D. Performed By: #### U RDS, UHCG, CUU, ADDONUAPLUS #### [address] Ketones Auto test strip (U) [Mass/Vol]Ordered By: Oscar Poe on 12-19-2022 Ketones (U) [Mass/Vol] 1+ Negative [facility] - UrinalysisOrder ed By: Oscar Poe on 12-19-2022 Hyaline casts LM Ql (Urine sed) 0-8 [LPF] 0-8 [facility] Lipaseon 12-19-2022 Lipase [Catalytic activity/Vol] 29.0 U/L Normal 11.0-82.0 [facility] Comment on above: Result Comment: PERF ORMED BY: [place] [address] PATHOLOGIST CREDIT AND COLLECTIONS ANALYST MALVIN MEDLEY M.D. Performed By: #### C BC, CREAT, GLU, LYTES, AST, ETOH, BARB, LIPASE, CK, BUN ####[facility] [address] [place] [address] [facility] Nitrite Test strip Ql (U)Ord ered By: Oscar Poe on 12-19-2022 Nitrite Ql (U) Negative Negative [facility] Opiates [Presence] in Urine by Screen methodOrdered By: Oscar Poe on 12-19-2022 Opiates Screen Ql (U) Negative Negative [facility] Phencyclidine Screen Ql (U)O rdered By: Oscar Poe on 12-19-2022 Phencyclidine Ql (U) Negative Negative [facility] Protein Auto test strip (U) [Mass/Vol]Ordered By: Oscar Poe on 12-19-2022 Protein (U) [Mass/Vol] Negative Negative [facility] Specific gravity Auto test s trip (U) [Rel density]Ordered By: Oscar Poe on 12-19-2022 Specific gravity (U) [Rel density] 1.025 1.001-1.03 0 [facility] Squamous epithelial cells de tection in urine sediment by light microscopyOrdered By: Oscar Poe on 12-19-2022 Epithelial cells.squamous LM Ql (Urine sed) 3-4 [HPF] 0-2 [facility] Type and Screenon 12-19-2022 ABO and Rh group Nom (Bld) Blood group A Rh(D) positive [facility] Comment on above: Result Comment: PERF ORMED BY: [facility] [address] [place] [address] PATHOLOGIST CREDIT AND COLLECTIONS ANALYST MALVIN MEDLEY M.D. Urine Cultureon 12-19-2022 Bacteria identified Cx Nom (U) >100,000 colonies/ml mixed bacterial skin contaminants 2 Days PERFORMED BY: [facility] [address] [place] [address] PATHOLOGIST CREDIT AND COLLECTIONS ANALYST MALVIN MEDLEY M.D. [facility] Comment on above: Performed By: #### U RDS, UHCG, CUU, ADDONUAPLUS ####[facility] [id number] [place] [address] [facility] Urine bacteria detection by automated methodOrdered By: Oscar Poe on 12-19-2022 Bacteria Auto Ql (U) None seen None Seen [facility] Urine clarity by refractomet ry automatedOrdered By: Oscar Poe on 12-19-2022 Clarity Refractometry automated (U) Clear Clear [facility] Urine culture routineOrdered By: Oscar Poe on 12-19-2022 Bacteria identified Cx Nom (U) 2 Days [facility] Urine glucose measurement by automated test strip (mass/volume)Ordered By: Oscar Poe on 12-19-2022 Glucose Auto test strip (U) [Mass/Vol] Normal mg/dL Normal [facility] Urine hemoglobin detection b y automated test stripOrdered By: Oscar Poe on 12-19-2022 Hemoglobin Auto test strip Ql (U) Negative Negative [facility] Urine leukocyte esterase det ection by automated test stripOrdered By: Oscar Poe on 12-19-2022 Leukocyte esterase Auto test strip Ql (U) 2+ Negative [facility] Urobilinogen Auto test strip (U) [Mass/Vol]Ordered By: Oscar Poe on 12-19-2022 Urobilinogen (U) [Mass/Vol] Normal mg/dL Normal [facility] XR knee BI 2Von 12-19-2022 XR knee BI 2V [facility] [place] [address] XRay Report Signed Patient: Zuleika Wyatt MR#: [id number] : 1990 Acct:[id number] Age/Sex: 32 / F ADM Date: 12/19/22 Loc: Room: [address] [place] [address] Type: ADM INOo Attending Dr: Arden Orozco DO Copies to: DO Arden Jefferson DO Ordering Provider: Oscar Poe DO Date of Service: 12/18/22 XR/XR knee BI 2V: f ([id number]) XR/XR chest 1V portable: TRAUMATIC INJURY ([id number]) XR/XR pelvis 1-2V: f ([id number]) XR/XR foot LT 2V: f CLINICAL DATA: [...] Adela Mahan M.D.12/19/2022 10:41 AM Dictation Location: [place] [address] Transcribed By: [facility] 12/19/22 1041 Dictated By: Adela Mahan MD 12/19/22 1036 Signed By: 12/19/22 1041 Normal [facility] pH Auto test strip (U)Ordere d By: Oscar Poe on 12-19-2022 pH (U) 5.5 [pH] 5.0-9.0 [facility] Amylase [Enzymatic activity/ volume] in Serum or PlasmaOrdered By: Oscar Poe on 12-18-2022 Amylase [Catalytic activity/Vol] 35 U/L 29-103 [facility] Aspartate aminotransferase [ Enzymatic activity/volume] in Serum or PlasmaOrdered By: Oscar Poe on 12-18-2022 AST [Catalytic activity/Vol] 26 U/L 13-39 [facility] Basophils Auto (Bld) [#/Vol] Ordered By: Oscar Poe on 12-18-2022 Basophils (Bld) [#/Vol] 0.1 10*3/uL 0.0-0.2 [facility] Basophils/100 WBC Auto (Bld) Ordered By: Oscar Poe on 12-18-2022 Basophils/100 WBC (Bld) 0.7 % . [facility] Carbon dioxide, total [Moles /volume] in Serum or PlasmaOrdered By: Oscar Poe on 12-18-2022 CO2 [Moles/Vol] 20.0 mmol/L 21.0-31.0 [facility] Chloride [Moles/volume] in S gwendolyn or PlasmaOrdered By: Oscar Poe on 12-18-2022 Chloride [Moles/Vol] 105 mmol/L 98-107 [facility] Choriogonadotropin.beta subu nit [Units/volume] in Serum or PlasmaOrdered By: Oscar Poe on 12-18-2022 HCG.beta subunit Qn Negative [facility] Creatine kinase [Enzymatic a ctivity/volume] in Serum or PlasmaOrdered By: Oscar Poe on 12-18-2022 CK [Catalytic activity/Vol] 50 U/L 30-223 [facility] Creatinine [Mass/volume] in Serum or PlasmaOrdered By: Oscar Poe on 12-18-2022 Creatinine [Mass/Vol] 0.84 mg/dL 0.60-1.20 [facility] Eosinophils Auto (Bld) [#/Vo l]Ordered By: Oscar Poe on 12-18-2022 Eosinophils (Bld) [#/Vol] 0.0 10*3/uL 0.0-0.45 [facility] Eosinophils/100 WBC Auto (Bl d)Ordered By: Oscar Poe on 12-18-2022 Eosinophils/100 WBC (Bld) 0.2 % . [facility] Erythrocyte distribution wid th Auto (RBC) [Ratio]Ordered By: Oscar Poe on 12-18-2022 Erythrocyte distribution width (RBC) [Ratio] 14.4 % 11.9-15.3 [facility] Ethanol [Mass/volume] in Ser um or PlasmaOrdered By: Oscar Poe on 12-18-2022 Ethanol [Mass/Vol] mg/dL [facility] Ethanol [Mass/Vol] TNP [facility] Comment on above: Test not performed Glucose [Mass/volume] in Ser um or PlasmaOrdered By: Oscar Poe on 12-18-2022 Glucose [Mass/Vol] 93 mg/dL 70-100 [facility] Comment on above: ADA recommended refe rence rangeRandom Glucose Reference Range is dependent on time and content of last meal. Glucose of more than 200 mg/dL in a nonstressed, ambulatory subject supports the diagnosis of Diabetes Mellitus. Hematocrit Auto (Bld) [Volum e fraction]Ordered By: Oscar Poe on 12-18-2022 Hematocrit (Bld) [Volume fraction] 36.2 % 34.0-46.4 [facility] Hemoglobin [Mass/volume] in BloodOrdered By: Oscar Poe on 12-18-2022 Hemoglobin (Bld) [Mass/Vol] 11.9 g/dL 11.8-15.4 [facility] Leukocytes [#/volume] correc osmel for nucleated erythrocytes in Blood by Automated counOrdered By: Oscar Poe on 12-18-2022 WBC corrected for nucl RBC Auto (Bld) [#/Vol] 10.3 10*3/uL 3.8-11.6 [facility] Lipase [Enzymatic activity/v olume] in Serum or PlasmaOrdered By: Oscar Poe on 12-18-2022 Lipase [Catalytic activity/Vol] 29.0 U/L 11.0-82.0 [facility] Lymphocytes Auto (Bld) [#/Vo l]Ordered By: Oscar Poe on 12-18-2022 Lymphocytes (Bld) [#/Vol] 2.2 10*3/uL 1.00-4.8 [facility] Lymphocytes/100 WBC Auto (Bl d)Ordered By: Oscar Poe on 12-18-2022 Lymphocytes/100 WBC (Bld) 21.8 % . [facility] MCH Auto (RBC) [Entitic mass ]Ordered By: Oscar Poe on 12-18-2022 MCH (RBC) [Entitic mass] 26.9 pg 24.7-34.3 [facility] MCHC Auto (RBC) [Mass/Vol]Or dered By: Oscar Poe on 12-18-2022 MCHC (RBC) [Mass/Vol] 32.8 g/dL 32.0-35.0 [facility] MCV Auto (RBC) [Entitic vol] Ordered By: Oscar Poe on 12-18-2022 MCV (RBC) [Entitic vol] 82.1 fL 80-100 [facility] Monocyte distribution width [Entitic volume] in Blood by AutomatedOrdered By: Oscar Poe on 12-18-2022 Monocyte distribution width Auto (Bld) [Entitic vol] 22.19 % 0.00-20.00 [facility] Comment on above: For adults in ED, MD W > 20.0 may be associated with a higher risk of sepsis during the first 12 hrs of hospital admission Monocytes Auto (Bld) [#/Vol] Ordered By: Oscar Poe on 12-18-2022 Monocytes (Bld) [#/Vol] 0.8 10*3/uL 0.0-0.8 [facility] Monocytes/100 WBC Auto (Bld) Ordered By: Oscar Poe on 12-18-2022 Monocytes/100 WBC (Bld) 7.4 % . [facility] Neutrophils Auto (Bld) [#/Vo l]Ordered By: Oscar Poe on 12-18-2022 Neutrophils (Bld) [#/Vol] 7.2 10*3/uL 1.8-7.7 [facility] Neutrophils/100 WBC Auto (Bl d)Ordered By: Oscar Poe on 12-18-2022 Neutrophils/100 WBC (Bld) 69.9 % . [facility] No Panel InformationOrdered By: Oscar Poe on 12-18-2022 Estimated GFR (CKD-EPI) > 60.0 mL/Min [facility] Creatinine Clearance (Chem 98.76 [facility] Nucleated erythrocytes [Pres ence] in Blood by Automated countOrdered By: Oscar Poe on 12-18-2022 Nucleated RBC Auto Ql (Bld) 0.1 /100{WBC} 0-0.5 [facility] Platelet mean volume Auto (B ld) [Entitic vol]Ordered By: Oscar Poe on 12-18-2022 Platelet mean volume (Bld) [Entitic vol] 8.1 fL 6.3-10.7 [facility] Platelets Auto (Bld) [#/Vol] Ordered By: Oscar Poe on 12-18-2022 Platelets (Bld) [#/Vol] 223 10*3/uL 150-450 [facility] Potassium [Moles/volume] in Serum or PlasmaOrdered By: Oscar Poe on 12-18-2022 Potassium [Moles/Vol] 3.5 mmol/L 3.5-5.1 [facility] RBC Auto (Bld) [#/Vol]Ordere d By: Oscar Poe on 12-18-2022 RBC (Bld) [#/Vol] 4.42 10*6/uL 3.60-5.00 [facility] Serum or plasma anion gap de terminationOrdered By: Oscar Poe on 12-18-2022 Anion gap [Moles/Vol] 14.5 mmol/L 6.0-15.0 [facility] Sodium [Moles/volume] in Ser um or PlasmaOrdered By: Oscar Poe on 12-18-2022 Sodium [Moles/Vol] 136 mmol/L 136-145 [facility] Urea nitrogen [Mass/volume] in Serum or PlasmaOrdered By: Oscar Poe on 12-18-2022 Urea nitrogen [Mass/Vol] 21 mg/dL 7-25 [facility] WBC Auto (Bld) [#/Vol]Ordere d By: Oscar Poe on 12-18-2022 WBC (Bld) [#/Vol] 10.3 10*3/uL 3.8-11.6 [facility] PRBC LEUKOREDUCEDon 07-14-19 23 ABO and Rh group Nom (Bld) Cross Match Result Compatible Unit Blood Type A Pos Unit Number [id number] Status Information Released Specimen Exp Date Product ID Red Blood Cells Product Code [id number] Cross Match Result Compatible Unit Blood Type A Pos Unit Number [id number] Status Information Transfused Product ID Red Blood Cells Product Code [id number] Normal [facility] Comment on above: Performed By: #### R UBIGG #### [facility] [address] [place] [address] Dr. Juan Antonio Ibarra CBC AUTO DIFFon 07-07-2022 BASO # 0.0 103/ul Normal 0.0-0.1 [facility] Comment on above: Performed By: #### A 1C #### [facility] [address] [place] [address] Dr. Juan Antonio Ibarra Basophils/100 WBC (Bld) 0.3 % Normal 0.2-2.0 [facility] Comment on above: Performed By: #### A 1C #### [facility] [address] [place] [address] Dr. Juan Antonio Ibarra EO # 0.1 103/ul Normal 0.0-0.7 [facility] Comment on above: Performed By: #### A 1C #### [facility] [address] [place] [address] Dr. Juan Antonio Ibarra Eosinophils/100 WBC (Bld) 0.9 % Normal 0.9-7.0 [facility] Comment on above: Performed By: #### A 1C #### [facility] [address] [place] [address] Dr. Juan Antonio Ibarra Erythrocyte distribution width (RBC) [Ratio] 14.5 % Normal 11.0-15.0 [facility] Comment on above: Performed By: #### A 1C #### [facility] [address] [place] [address] Dr. Juan Antonio Ibarra Hematocrit (Bld) [Volume fraction] 22.5 % Critically low 36.0-48.0 [facility] Comment on above: Performed By: #### A 1C #### [facility] [address] [place] [address] Dr. Juan Antonio Ibarra Hemoglobin (Bld) [Mass/Vol] 7.9 g/dL Critically low 12.0-16.0 [facility] Comment on above: Performed By: #### A 1C #### [facility] [address] [place] [address] Dr. Juan Antonio Ibarra IG # 0.10 10e3/ul Critically high 0.00-0.03 [facility] Comment on above: Performed By: #### A 1C #### [facility] [address] [place] [address] Dr. Juan Antonio Ibarra IG % 0.9 % Critically high 0.0-0.5 [facility] Comment on above: Performed By: #### A 1C #### [facility] [address] [place] [address] Dr. Juan Antonio Ibarra LYMPH # 1.6 103/ul Normal 1.2-3.8 [facility] Comment on above: Performed By: #### A 1C #### [facility] [address] [place] [address] Dr. Juan Antonio Ibarra Lymphocytes/100 WBC (Bld) 14.0 % Critically low 20.5-60.0 [facility] Comment on above: Performed By: #### A 1C #### [facility] [address] [place] [address] Dr. Juan Antonio Ibarra MANUAL DIFF REQ NO Normal [facility] Comment on above: Performed By: #### A 1C #### [facility] [address] [place] [address] Dr. Juan Antonio Ibarra MCH (RBC) [Entitic mass] 26.4 pg Critically low 26.7-34.0 [facility] Comment on above: Performed By: #### A 1C #### [facility] [address] [place] [address] Dr. Juan Antonio Ibarra MCHC (RBC) [Mass/Vol] 35.1 g/dL Normal 29.9-35.2 [facility] Comment on above: Performed By: #### A 1C #### [facility] [address] [place] [address] Dr. Juan Antonio Ibarra MCV (RBC) [Entitic vol] 75.3 fL Critically low 81.0-99.0 [facility] Comment on above: Performed By: #### A 1C #### [facility] [address] [place] [address] Dr. Juan Antonio Ibarra MONO # 0.7 103/ul Normal 0.3-0.8 [facility] Comment on above: Performed By: #### A 1C #### [facility] [address] [place] [address] Dr. Juan Antonio Ibarra Monocytes/100 WBC (Bld) 6.2 % Normal 1.7-12.0 [facility] Comment on above: Performed By: #### A 1C #### [facility] [address] [place] [address] Dr. Juan Antonio Ibarra NEUT # 9.1 103/ul Critically high 1.4-6.5 [facility] Comment on above: Performed By: #### A 1C #### [facility] [address] [place] [address] Dr. Juan Antonio Ibarra Neutrophils/100 WBC (Bld) 77.7 % Critically high 43.0-75.0 [facility] Comment on above: Performed By: #### A 1C #### [facility] [address] [place] [address] Dr. Juan Antonio Ibarra Platelet mean volume (Bld) [Entitic vol] 9.2 fL Critically low 9.5-13.5 [facility] Comment on above: Performed By: #### A 1C #### [facility] [address] [place] [address] Dr. Juan Antonio Ibarra PLT 143 103/ul Critically low 150-450 [facility] Comment on above: Performed By: #### A 1C #### [facility] [place] [facility] [address] [place] [address] Dr. Juan Antonio Ibarra RBC 2.99 106/ul Critically low 4.20-5.40 [facility] Comment on above: Performed By: #### A 1C #### [facility] [place] [facility] [address] [place] [address] Dr. Juan Antonio Ibarra WBC 11.7 103/ul Critically high 4.0-11.0 [facility] Comment on above: Performed By: #### A 1C #### [facility] [place] [facility] [address] [place] [address] Dr. Juan Antonio Ibarra CBC AUTO DIFFon 07-06-2022 BASO # 0.0 103/ul Normal 0.0-0.1 [facility] Comment on above: Performed By: #### A 1C #### [facility] [place] [facility] [address] [place] [address] Dr. Juan Antonio Ibarra Basophils/100 WBC (Bld) 0.3 % Normal 0.2-2.0 [facility] Comment on above: Performed By: #### A 1C #### [facility] [address] [place] [address] Dr. Juan Antonio Ibarra EO # 0.1 103/ul Normal 0.0-0.7 [facility] Comment on above: Performed By: #### A 1C #### [facility] [place] [facility] [address] [place] [address] Dr. Juan Antonio Ibarra Eosinophils/100 WBC (Bld) 0.8 % Critically low 0.9-7.0 [facility] Comment on above: Performed By: #### A 1C #### [facility] [place] [facility] [address] [place] [address] Dr. Juan Antonio Ibarra Erythrocyte distribution width (RBC) [Ratio] 14.3 % Normal 11.0-15.0 [facility] Comment on above: Performed By: #### A 1C #### [facility] [place] [facility] [address] [place] [address] Dr. Juan Antonio Ibarra Hematocrit (Bld) [Volume fraction] 23.0 % Critically low 36.0-48.0 [facility] Comment on above: Performed By: #### A 1C #### [facility] [address] [place] [address] Dr. Juan Antonio Ibarra Hemoglobin (Bld) [Mass/Vol] 7.5 g/dL Critically low 12.0-16.0 [facility] Comment on above: Performed By: #### A 1C #### [facility] [place] [facility] [address] [place] [address] Dr. Juan Antonio Ibarra IG # 0.07 10e3/ul Critically high 0.00-0.03 [facility] Comment on above: Performed By: #### A 1C #### [facility] [place] [facility] [address] [place] [address] Dr. Juan Antonio Ibarra IG % 0.6 % Critically high 0.0-0.5 [facility] Comment on above: Performed By: #### A 1C #### [facility] [place] [facility] [address] [place] [address] Dr. Juan Antonio Ibarra LYMPH # 2.1 103/ul Normal 1.2-3.8 [facility] Comment on above: Performed By: #### A 1C #### [facility] [address] [place] [address] Dr. Juan Antonio Ibarra Lymphocytes/100 WBC (Bld) 18.8 % Critically low 20.5-60.0 [facility] Comment on above: Performed By: #### A 1C #### [facility] [place] [facility] [address] [place] [address] Dr. Juan Antonio Ibarra MANUAL DIFF REQ NO Normal [facility] Comment on above: Performed By: #### A 1C #### [facility] [place] [facility] [address] [place] [address] Dr. Juan Antonio Ibarra MCH (RBC) [Entitic mass] 26.0 pg Critically low 26.7-34.0 [facility] Comment on above: Performed By: #### A 1C #### [facility] [place] [facility] [address] [place] [address] Dr. Juan Antonio Ibarra MCHC (RBC) [Mass/Vol] 32.6 g/dL Normal 29.9-35.2 [facility] Comment on above: Performed By: #### A 1C #### [facility] [place] [facility] [address] [place] [address] Dr. Juan Antonio Ibarra MCV (RBC) [Entitic vol] 79.9 fL Critically low 81.0-99.0 [facility] Comment on above: Performed By: #### A 1C #### [facility] [place] [facility] [address] [place] [address] Dr. Juan Antonio Ibarra MONO # 0.7 103/ul Normal 0.3-0.8 [facility] Comment on above: Performed By: #### A 1C #### [facility] [place] [facility] [address] [place] [address] Dr. Juan Antonio Ibarra Monocytes/100 WBC (Bld) 6.6 % Normal 1.7-12.0 [facility] Comment on above: Performed By: #### A 1C #### [facility] [place] [facility] [address] [place] [address] Dr. Juan Antonio Ibarra NEUT # 8.2 103/ul Critically high 1.4-6.5 [facility] Comment on above: Performed By: #### A 1C #### [facility] [place] [facility] [address] [place] [address] Dr. Juan Antonio Ibarra Neutrophils/100 WBC (Bld) 72.9 % Normal 43.0-75.0 [facility] Comment on above: Performed By: #### A 1C #### [facility] [place] [facility] [address] [place] [address] Dr. Juan Antonio Ibarra Platelet mean volume (Bld) [Entitic vol] 9.8 fL Normal 9.5-13.5 [facility] Comment on above: Performed By: #### A 1C #### [facility] [place] [facility] [address] [place] [address] Dr. Juan Antonio Ibarra PLT 151 103/ul Normal 150-450 [facility] Comment on above: Performed By: #### A 1C #### [facility] [place] [facility] [address] [place] [address] Dr. Juan Antonio Ibarra RBC 2.88 106/ul Critically low 4.20-5.40 [facility] Comment on above: Performed By: #### A 1C #### [facility] [place] [facility] [address] [place] [address] Dr. Juan Antonio Ibarra WBC 11.3 103/ul Critically high 4.0-11.0 [facility] Comment on above: Performed By: #### A 1C #### [facility] [place] [facility] [address] [place] [address] Dr. Juan Antonio Ibarra CBC AUTO DIFFon 07-05-2022 BASO # 0.0 103/ul Normal 0.0-0.1 [facility] Comment on above: Performed By: #### R PRQ #### [facility] [place] [facility] [address] [place] [address] Dr. Juan Antonio Ibarra Basophils/100 WBC (Bld) 0.2 % Normal 0.2-2.0 [facility] Comment on above: Performed By: #### R PRQ #### [facility] [place] [facility] [address] [place] [address] Dr. Juan Antonio Ibarra EO # 0.0 103/ul Normal 0.0-0.7 [facility] [place] [facility] Comment on above: Performed By: #### R PRQ #### [facility] [place] [facility] [address] [place] [address] Dr. Juan Antonio Ibarra Eosinophils/100 WBC (Bld) 0.4 % Critically low 0.9-7.0 [facility] Comment on above: Performed By: #### R PRQ #### [facility] [place] [facility] [address] [place] [address] Dr. Juan Antonio Ibarra Erythrocyte distribution width (RBC) [Ratio] 14.2 % Normal 11.0-15.0 [facility] Comment on above: Performed By: #### R PRQ #### [facility] [place] [facility] [address] [place] [address] Dr. Juan Antonio Ibarra Hematocrit (Bld) [Volume fraction] 31.0 % Critically low 36.0-48.0 [facility] Comment on above: Performed By: #### R PRQ #### [facility] [place] [facility] [address] [place] [address] Dr. Juan Antonio Ibarra Hemoglobin (Bld) [Mass/Vol] 10.1 g/dL Critically low 12.0-16.0 [facility] Comment on above: Performed By: #### R PRQ #### [facility] [place] [facility] [address] [place] [address] Dr. Juan Antonio Ibarra IG # 0.10 10e3/ul Critically high 0.00-0.03 [facility] Comment on above: Performed By: #### R PRQ #### [facility] [place] [facility] [address] [place] [address] Dr. Juan Antonio Ibarra IG % 1.1 % Critically high 0.0-0.5 [facility] Comment on above: Performed By: #### R PRQ #### [facility] [place] [facility] [address] [place] [address] Dr. Juan Antonio Ibarra LYMPH # 1.6 103/ul Normal 1.2-3.8 [facility] [place] [facility] Comment on above: Performed By: #### R PRQ #### [facility] [place] [facility] [address] [place] [address] Dr. Juan Antonio Ibarra Lymphocytes/100 WBC (Bld) 17.5 % Critically low 20.5-60.0 [facility] Comment on above: Performed By: #### R PRQ #### [facility] [place] [facility] [address] [place] [address] Dr. Juan Antonio Ibarra MANUAL DIFF REQ NO Normal [facility] Comment on above: Performed By: #### R PRQ #### [facility] [place] [facility] [address] [place] [address] Dr. Juan Antonio Ibarra MCH (RBC) [Entitic mass] 25.8 pg Critically low 26.7-34.0 [facility] Comment on above: Performed By: #### R PRQ #### [facility] [place] [facility] [address] [place] [address] Dr. Juan Antonio Ibarra MCHC (RBC) [Mass/Vol] 32.6 g/dL Normal 29.9-35.2 [facility] Comment on above: Performed By: #### R PRQ #### [facility] [place] [facility] [address] [place] [address] Dr. Juan Antonio Ibarra MCV (RBC) [Entitic vol] 79.3 fL Critically low 81.0-99.0 [facility] Comment on above: Performed By: #### R PRQ #### [facility] [place] [facility] [address] [place] [address] Dr. Juan Antonio Ibarra MONO # 0.7 103/ul Normal 0.3-0.8 [facility] Comment on above: Performed By: #### R PRQ #### [facility] [place] [facility] [address] [place] [address] Dr. Juan Antonio Ibarra Monocytes/100 WBC (Bld) 8.1 % Normal 1.7-12.0 [facility] Comment on above: Performed By: #### R PRQ #### [facility] [place] [facility] [address] [place] [address] Dr. Juan Antonio Ibarra NEUT # 6.7 103/ul Critically high 1.4-6.5 [facility] Comment on above: Performed By: #### R PRQ #### [facility] [place] [facility] [address] [place] [address] Dr. Juan Antonio Ibarra Neutrophils/100 WBC (Bld) 72.7 % Normal 43.0-75.0 [facility] [place] [facility] Comment on above: Performed By: #### R PRQ #### [facility] [place] [facility] [address] [place] [address] Dr. Juan Antonio Ibarra Platelet mean volume (Bld) [Entitic vol] 10.1 fL Normal 9.5-13.5 [facility] Comment on above: Performed By: #### R PRQ #### [facility] [place] [facility] [address] [place] [address] Dr. Juan Antonio Ibarra PLT 202 103/ul Normal 150-450 [facility] [place] [facility] Comment on above: Performed By: #### R PRQ #### [facility] [place] [facility] [address] [address] [address] Juan Antonio Ibarra RBC 3.91 106/ul Critically low 4.20-5.40 [facility] Comment on above: Performed By: #### R PRQ #### [facility] [place] [facility] [address] [place] [address] Dr. Juan Antonio Ibarra WBC 9.2 103/ul Normal 4.0-11.0 [facility] Comment on above: Performed By: #### R PRQ #### [facility] [place] [facility] [address] [place] [address] Dr. Juan Antonio Ibarra DRUG SCREEN RAPID (URINE)on 07-05-2022 AMP Negative Normal NEGATIVE [facility] Comment on above: Performed By: #### A 1C #### [facility] [place] [facility] [address] [place] [address] Dr. Juan Antonio Ibarra BAR Negative Normal NEGATIVE [facility] Comment on above: Performed By: #### A 1C #### [facility] [place] [facility] [address] [place] [address] Dr. Juan Antonio Ibarra BUP Negative Normal NEGATIVE [facility] Comment on above: Performed By: #### A 1C #### [facility] [place] [facility] [address] [place] [address] Dr. Juan Antonio Ibarra BZO Negative Normal NEGATIVE [facility] Comment on above: Performed By: #### A 1C #### [facility] [place] [facility] [address] [place] [address] Dr. Juan Antonio Ibarra PARAM Negative Normal NEGATIVE [facility] Comment on above: Performed By: #### A 1C #### [facility] [place] [facility] [address] [place] [address] Dr. Juan Antonio Ibarra CUT-OFFS SEE BELOW Normal [facility] Comment on above: Result Comment: AMP (Amphetamine): 500ng/mL, BAR (Barbituates): 200 ng/mL, BZO (Benzodiazepines): 150 ng/mL, BUP (Buprenorphine): 10 ng/mL, PRAAM (Cocaine): 150 ng/mL, mAMP (Methamphetamine): 500 ng/mL, MTD (Methadone): 200 ng/mL, OPI (Opiates): 100 ng/mL, OXY (Oxycodone): 100 ng/mL, PCP (Phencyclidine): 25 ng/mL, PPX (Propoxyphene): 300 ng/mL, THC (Cannabinoids): 50 ng/mL, TCA (Trycyclic Antidepressants): 300 ng/mL Performed By: #### A 1C #### [facility] [place] [facility] [address] [place] [address] Dr. Juan Antonio Ibarra DRUG CUT HEADER DRUG CLASS TEST SYST EM CUT-OFF CONCENTRATIONS ARE FOLLOWS: Normal [facility] Comment on above: Performed By: #### A 1C #### [facility] [place] [facility] [address] [place] [address] Dr. Juan Antonio Ibarra mAMP Negative Normal NEGATIVE [facility] Comment on above: Performed By: #### A 1C #### [facility] [place] [facility] [address] [place] [address] Dr. Juan Antonio Ibarra MTD Negative Normal NEGATIVE [facility] Comment on above: Performed By: #### A 1C #### [facility] [place] [facility] [address] [place] [address] Dr. Juan Antonio Ibarra OPI Negative Normal NEGATIVE [facility] Comment on above: Performed By: #### A 1C #### [facility] [place] [facility] [address] [place] [address] Dr. Juan Antonio Ibarra OXY Negative Normal NEGATIVE [facility] Comment on above: Performed By: #### A 1C #### [facility] [place] [facility] [address] [place] [address] Dr. Juan Antonio Ibarra PCP Negative Normal NEGATIVE [facility] Comment on above: Performed By: #### A 1C #### [facility] [place] [facility] [address] [address] [address] Juan Antonio Ibarra PPX Negative Normal NEGATIVE [facility] Comment on above: Performed By: #### A 1C #### [facility] [place] [facility] [address] [address] [address] Juan Antonio Ibarra TCA Negative Normal NEGATIVE [facility] Comment on above: Performed By: #### A 1C #### [facility] [place] [facility] [address] [address] [address] Juan Antonio Ibarra THC Negative Normal NEGATIVE [facility] Comment on above: Performed By: #### A 1C #### [facility] [place] [facility] [address] [place] [address] Dr. Juan Antonio Ibarra TYPE AND SCREENon 07-05-2022 TYPE AND SCREEN Negative Normal [facility] Comment on above: Performed By: #### T NS #### [facility] [place] [facility] [address] [place] [address] Dr. Juan Antonio Ibarra US PREG BIOPHY [...] by: FELECIA GOLDMAN Date: 2022-06-28 15:29 Normal [facility] US PREG BIOPHY W NON STRESSo [...] RCX #### [facility] [place] [facility] [address] [place] [address] Dr. 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 Juan Antonio Ibarra Clarity (U) CLEAR Normal CLEAR [facility] Comment on above: Performed By: #### U MICRO, UACSIND #### [facility] [place] [facility] [address] [place], [place] [id number] Dr. Juan Antonio Ibarra Color (U) LT. YELLOW Normal YELLOW [facility] Comment on above: Performed By: #### U MICRO, UACSIND #### [facility] [place] [facility] [address] [address] [address] Juan Antonio Ibarra Glucose Ql (U) Negative Normal NEGATIVE [facility] Comment on above: Performed By: #### U MICRO, UACSIND #### [facility] [place] [facility] [address] [address] [address] Juan Antonio Ibarra Hemoglobin Ql (U) Negative Normal NEGATIVE [facility] Comment on above: Performed By: #### U MICRO, UACSIND #### [facility] [place] [facility] [address] [place] [address] Dr. Juan Antonio Ibarra Ketones Ql (U) Negative Normal NEGATIVE [facility] Comment on above: Performed By: #### U MICRO, UACSIND #### [facility] [place] [facility] [address] [place] [address] Dr. Juan Antonio Ibarra LEUKOCYTES MODERATE Abnormal NEGATIVE [facility] Comment on above: Performed By: #### U MICRO, UACSIND #### [facility] [address] [place] [address] Dr. Juan Antonio Ibarra Nitrite Ql (U) Negative Normal NEGATIVE [facility] Comment on above: Performed By: #### U MICRO, UACSIND #### [facility] [place] [facility] [address] [place] [address] Dr. Juan Antonio Ibarra pH (U) 6.0 [pH] Normal 5-9 [facility] Comment on above: Performed By: #### U MICRO, UACSIND #### [facility] [address] [place] [address] Dr. Juan Antonio Ibarra SPEC GRAVITY 1.020 Normal 1.005-<=1. 025 [facility] Comment on above: Performed By: #### U MICRO, UACSIND #### [facility] [address] [place] [address] Dr. Juan Antonio Ibarra UA PROTEIN Negative Normal NEGATIVE/ TRACE [facility] Comment on above: Performed By: #### U MICRO, UACSIND #### [facility] [address] [place] [address] Dr. Juan Antonio Ibarra UR MICRO IND INDICATED Normal [facility] Comment on above: Performed By: #### U MICRO, UACSIND #### [facility] [address] [address] [address] Juan Antonio Ibarra Urobilinogen Qn (U) 1.0 {Pamela'U}/dL Normal 0.2 - 1. 0 [facility] Comment on above: Performed By: #### U MICRO, UACSIND #### [facility] [address] [place] [address] Dr. Juan Antonio Ibarra URINE MICROSCOPIC ONLYon BACTERIA SMALL Abnormal NONE SEEN [facility] Comment on above: Performed By: #### U MICRO, UACSIND #### [facility] [address] [place] [address] Dr. Juan Antonio Ibarra Bacteria identified Cx Nom (U) INDICATED Normal [facility] Comment on above: Performed By: #### U MICRO, UACSIND #### [facility] [address] [place] [address] Dr. Juan Antonio Ibarra CAST NONE SEEN Normal NONE SEEN [facility] Comment on above: Performed By: #### U MICRO, UACSIND #### [facility] [address] [place] [address] Dr. Juan Antonio Ibarra Crystals LM Nom (Urine sed) NONE SEEN Normal NONE SEEN [facility] Comment on above: Performed By: #### U MICRO, UACSIND #### [facility] [address] [place] [address] Dr. Juan Antonio Ibarra Epithelial cells LM Ql (Urine sed) RARE Normal NONE SEEN /RARE [facility] Comment on above: Performed By: #### U MICRO, UACSIND #### [facility] [address] [place] [address] Dr. Juan Antonio Ibarra MUCOUS NONE SEEN Normal NONE SEEN [facility] Comment on above: Performed By: #### U MICRO, UACSIND #### [facility] [address] [place] [address] Dr. Juan Antonio Ibarra RBC NONE SEEN Abnormal 0-2 [facility] Comment on above: Performed By: #### U MICRO, UACSIND #### [facility] [address] [address] [address] Juan Antonio Ibarra WBC 2-5 Abnormal NONE SEEN [facility] Comment on above: Performed By: #### U MICRO, UACSIND #### [facility] [address] [place], [place] [address] Dr. Juan Antonio Ibarra GROUP B STREP CULTUREon 05-18 S. agalactiae Ag Ql (Unsp spec) Culture Observations: NEGATIVE FOR GROUP B STREPTOCOCCUS. Normal [facility] Comment on above: Performed By: #### G BSCX #### [facility] [address] [address] [address] Juan Antonio Ibarra US PREG BIOPHY [...] GAMALIEL CRUMP Date: 2022-06-14 16:10 Normal [facility] US [...] by: FELECIA GOLDMAN Date: 2022-06-07 16:42 Normal [facility] US PREG BIOPHY W NON STRESSo [...] by: FELECIA GOLDMAN Date: 2022-06-04 17:11 Normal [facility] US PREG BIOPHY W NON STRESS [...] by: FELECIA GOLDMAN Date: 2022-06-04 16:23 Normal [facility] US PREG BIOPHY W NON STRESSo [...] by: GAMALIEL CRUMP Date: 2022-05-31 18:39 Normal [facility] US PREG BIOPHY W NON STRESSo [...] PRQ #### [facility] [address] [place] [address] [address] [address] Juan Antonio Ibarra HEMOGRAM AND PLATELon 2021 Hematocrit (Bld) [Volume fraction] 33.5 % Critically low 36.0-48.0 [facility] Comment on above: Performed By: #### A 1C #### [facility] [address] [place] [address] Dr. Juan Antonio Ibarra Hemoglobin (Bld) [Mass/Vol] 10.7 g/dL Critically low 12.0-16.0 [facility] Comment on above: Performed By: #### A 1C #### [facility] [address] [place] [address] Dr. Juan Antonio Ibarra MCH (RBC) [Entitic mass] 29.3 pg Normal 26.7-34.0 [facility] Comment on above: Performed By: #### A 1C #### [facility] [address] [place] [address] Dr. Juan Antonio Ibarra MCHC (RBC) [Mass/Vol] 31.9 g/dL Normal 29.9-35.2 [facility] Comment on above: Performed By: #### A 1C #### [facility] [address] [place] [address] Dr. Juan Antonio Ibarra MCV (RBC) [Entitic vol] 91.8 fL Normal 81.0-99.0 [facility] Comment on above: Performed By: #### A 1C #### [facility] [address] [place] [address] Dr. Juan Antonio Ibarra PLT 179 103/ul Normal 150-450 [facility] Comment on above: Performed By: #### A 1C #### [facility] [address] [place] [address] Dr. Juan Antonio Ibarra RBC 3.65 106/ul Critically low 4.20-5.40 [facility] Comment on above: Performed By: #### A 1C #### [facility] [address] [place] [address] Dr. Juan Antonio Ibarra WBC 9.9 103/ul Normal 4.0-11.0 [facility] Comment on above: Performed By: #### A 1C #### [facility] [address] [place] [address] Dr. Juan Antonio Ibarra US PREG REEVAL [...] by: FELECIA GOLDMAN Date: 2022-03-20 20:55 Normal [facility] US PREG ANATOMY SINGLEon US PREG [...] by: FELECIA GOLDMAN Date: 2022-02-22 16:46 Normal [facility] Coding Summaryon 02-14-2022 Coding Summary HTMLBase 64 OteaggzfJTc3sHa+PGhlYWQ+PE [id number] [id number] VybiAv WtdwfSOeDV11AEt8WUH4xHxiYU sssE1raJMsN5k4MuFyUF31nX15 YZfkHJYaKfU2VvQxszfufHXc E9kqShYnxWKdDpc+PHRhYmxlIH rlKPTqAZdlZYPwCdFpuSodND1k Tl9pVOUnMTVgsTjpfKDiUkUu b0izIQDnZSxiBO9hnEmjO3JjmB W6TWJhp3h8Ji73kQA+PHRkIHN0 vVliBTxda224WxYil0goGEK2 tLIuTIeyLBO2L52mr1E7PHMaSU GaMAR0fSR0sH5tsZnfeiomY7Qu rZQbOjJ3OAX0lJZctR3ruCxs zyebcA9jHcn+O63YJC3XSLPQRM 0PMfi1F9VtBwenkHT+ZF63CWXk RJ49xFGogWSnq7hwnQw6LhEa HKOkYXU1cYltECkmf3GlWIKmF3 0xsFTfv7G0UGGwtDudaZLlBnMf mRY3aY0oPPvfpppam4bsjedm Ndipb2oynv51bY67E55xCWixUL GyTTU2IYHlYTNrrYfsiq8tnI6n Ii8+NIsjp9tui8lkeLm4UhOe PGOchmBtpKekIOZ6a7RmPa46Y5 RllMmgr4TxMqg1kg99gAMvc6X6 nEJ7FRzkWFXgkQ4yNUklWdP0 EZJwUvPzzG84mIEcHYjoJe8txV xyhFlgLU9xJQUlhtqkVXXdzF6h OBCxrDTwzIaqIE9sEMArfcqw w222GwXoDKO9UXWgxJHkL1KsxQ 8vHuZgVYUsAJBvE6BgsHQcGRir Q549HHmwSyF4VGBnpsYtX9Et IZBfjMugMnU5k9T3Yu1Mq7Zvzq umIKJ7IIvgTUL0IjRdRbJzArV3 X4JrSbr2PBYthGmhQU5iI0Rn ELNwqyhttttteDW8OLJgDFSxzK 94kOUnOMdnSt2lz4V1o717DJXm YNQhtV88Kl2boYafMXDujJLT rY7nebxnk9wzjunpCmQyNNIcCR i7OLu8HFEfkFfdPuYwBQG1OpO8 NGY6cSSamE0aaCamysszpW2n Oyc+L99kuB9yEDP0VIC9coevKF YiohMpHM46PT81I3CwYxayuPFz bGU+ZUZvcoSfjNiwUR8dPbZt o4uod2HiORgqZ4WsAFWuKDmaEm x7FQYtPRT0dHF1aH3vHDOaWRle f3N8fCE0R0LdkoNzqs0yf8fd JOUkIByrY78jrNBpd7R5BKVziH V6UGMnqJboApEheS94Vna+PGNv iQwnz9OqIcnnb8oix4ogrFp7 TfCuGGYxsjHtfIxbACL8c5IsJq 99A49sHGtlOPWeMPHmYCEdIZWx hDlpbx5zvM0vDw4+PGNvbCB3 iTH8sY9jAMGsToU8LKvdO114Pt LhtPJnAyram9txz5xnnPj5WaJl PVSlscNalNfiWAW2e1PxDd60 P84mELtoDAOcGTNtOOGyTXHlrO zdrr1xfP2pZa9+DU4ke2pydg56 kJ68cMH+ANQoFIS2zDhyHZuw XKVauL2bQPuyGcR1RXPsBlAbyN 30qMEnRBtbQf7ynGblbFefVC3c HXHxsridw776WiTet6zbJFEu tSPnJNtnRVA2I08vb7W9MQQcLD WeEWB5aXD4dZ1xlNfsjxcusZAo vIjyorOoqLdtTGnsGHbcI440 IHRvcDsnPlBhdGllbnQgTmFtZT t6I8GaVlk5DNAwnZtyJC3cdVMn TUttNo5svFwmnRpvQC4oNNJs ucgdm187PgVid6iiGOEtzAMxHI viAPB8U08lm0I9PVPyQCBsRZH7 pIK9lH9cePfclehjqBZpoOhd muZulTuxJPtlCPraB338UZTsmX ojXeUdmfCeQSNpnPF4VW93LO08 sHXsm9I3jTD4T8LwTOLnygfx vaeraWN7YZOeANWalX85Xx9bvS flXf6tXSKhOBG2VSQmrCHtZ3Kv jB6dGoEdYZEfXHHtV7XlsLCf VItlV905YTwiPjD5HIDqhjVyV0 OdPEJwyDflTgZ1w1C2Uj2KT7M5 LH08PB89cXKmy9R7qVT3T9Vc QUFjvgqkkbnztJT3BCApKCIorB 14Nd8ixBcoGb9vOKLrOPZ0ZHPb oPKxB5LudT8nMiHbOONxMGXc W4MtyQDePOcrA524SBfrTkJ9VZ NizuTpZ1ZfBORbaFjvZfO4f7S1 Pj1MLCz4OX93PZ49xEZyr0W7 wRC7Z3RrJXTbbbxwdjhdmYW0QY IqEVPmlN43Fy4zmOevCq1dPYXb OFD2JXFexGOjF0XdaD3kBtPl XULoMCOzV9TycFNyTZceC303UU haAqX0VWSxdnBwP7IcEZQumKzz AuV5c8R5Bs4YVHWhFO41OMN1 oGK2RX07YQ90U0JnTuampQXdoE U+PHRhYmxlIHdpZHRoPScxMDAl BqFhkJixQM4jSc7uJOOcJAIa cTokrLIwAgTeq5ooGDFhNEwjHK 7ejQecH0UvoJJ6WFWdq6q0Bb92 A46iF1EzgVJ+PWIdmGZ0fTH3 uW4kCaRjDbD5AFkgZ907RhHgmC BcXtssi7dai9hlaPd8KlT5XIIf jcFapXssCWM4j7RzDu69F70r IHdpZHRoPSIxNSUiIHZhbGlnbj 0tjU3ySf2+FZYvsXJ1lAY1oC5z NaIzPyL9ERdyM693CaRspJMi Qxuoa6syg0itwQe5DmBnUAGpiq YcvNciTVS9w7LhWc26L1XzdTey o7VvBwa9lm78bZJgv5R6jHI4 D9AyCUCuvgdfzDBuwXrbQB8kXV KumkrdHQAmsE0pWNKzO4z0CiVk YaJ3HHmiN8DvwbD3EMDkfMMd EBpxHXI6Y28zb2I7VWRnLMNeVU K5aQC1rG3baFkucojhmUZttFdw rpZbkRukIHjxMDdhX760BFOe nYgoNCOruZ8uMOIhkXPogVgfON 4wNTBpbjsnPlNURUlOLCBWSVJH PQ3FTKEBDUN9U4EwFbw7LGYv hKdcSV6yaVJqPLpiDg7hjPxokQ zaRL5wIYFxmtndEJCicP2mMUTz jKGcnSuuCL9fTUTlppwfi285 BuMfHAL5QKMzrFGxE8RtyS7mLv GoDFGzYDEsB2GciMSbEKabM643 BJrmSyJ9GJCqrbTpT0HkJNSu xJwiImP2p5R6Pr9xFX0eFO9pQH naIU84TT11tQQit5J7qKE1G7Ho AZUxvfeprboneKU7LJAtEQVy dG67uIOsILazEx8jh4P2k784VZ GtHSWiuY91Ww8zmLcsXAEyjNIX sY0mhilqs1gmbusvKgWqAZYj NRj9ZAk2VOUwsDrjVrGkSVO7Kc I1UPW5eJZrqW2maJhbxcnszH5s Oyc+VboiWFBhfvC9C3QdJxk5 SENhlDsbCX8rlCQvMFcjPp6mbK qvhFpcWF8eJDXsphsjWJIjhT3j UNZkrOFwjWneHD9pQEBhojtp m491SaAhJEC4XPWjaDYbL5VcpK 6dJcYuERZlPJDtH0HlhZJfMZtp J159ZFsyGuT3YKJdwbRgQ5Ai ODJqsHbaOjG4t0R8Th2SDA8MPW W5J5YxJhh3KBIpnWbsAG7eaJUr JLpeSg6beFelpFknLQ2nRSKb ymugQOHizP7lFDOpdZZymEdwTW 6bJPLxngmfl232ZoXcHUU1QFZx oGZrT2IlkI4kFmZtVYQgSRPs G8WsvDIzQTvhD309WCfoMcE7KT IzozExL3XwZBVjaAjnZpV4t3Y8 Sx2DGTsfoDL+EM67jy69H3Mb YifdJff6JVQfAKB1gIP6sF9xGS ArXPdgj1F0oNP8Z0FvzhHqqr1c i3bqLYOwYJyaK48sdKCad4Q6 JPSjxVI7EPQirOosYoOedP62Wu c+DAQouUjct3JfCpibi6dxe4rj eRi5ZhMgNPXcrrAfbOmgRNL1 s7BaCo75M71gVCytVNOjYVAmQY SyHRQwqSbwab0viQ6cCd1+PGNv mWK2wUU6eK0zCvHlCsA9WEpa G313SpXodQLwNotue9bsf0ibuX u9NqSrKKMglnBbrJifZEY5z0Cy Bk31L1VfkEuge4PcWwd1ls71 xTXta5F7fTF0F6QgTXUnrvywiF EseVlnAN4yLHOalexgYYHzhP5u DBWrR8o0JkAoSrX8QGafH2Ln tnP1NYPxeXHfRGIfgXTElR4jyc tkp4pbsusqBlXhBFVpPNz1XGt5 WHWjdKcgImHqWET7IbZ5XRI7 gIZhsP6kbAhzqhjxvH5sUms+UG w6r6svhCSbZA1dkNS9ZP23AO10 jGBrk5C1xMI4X6HsTHOpiisa khccoIC5VMAbLMPddY14Ie1gkQ ckAu1sUFLhEYS1AHHunQAhO1Ac lO0vUcGdNYKpCJHaY0PcoFDv ZKtqV010DEkdLbP2PEOtsgGdF5 PjZCReiOdyYnD2p5H0Vv2TBX20 NA67BW44sSJyz0Y1vFJ2E3Mc QZVpflnpgksphNH1VIDqYMCnmQ 52Vz7olLtgLn2kXVEfLLM1ZXJa jYAxK2OurT9wCaArRNIiYWNb X3WuxKHlSMezF633LCtcOyM5RU WbxxPrL9DcEDGghLkoHzZ8x8A5 Gy8NQq50WY29HL36lROgu3R2 kGY9G7ZrRPByeebriehpfWE0FJ YvSNBouQ72Nd5qsPfbYc2sDKEn SWP1OTXsfVZnM0UibJ1pOpSb ZVNgXKIdF0GgcFPgWWuhM237AL xsKjQ7FAXyakVxL5OrKPJzlHfn HcZ2v5I4Dj6YLMvqicw4J1Tr PjwvdHI+WD41YGHhWS45fZIxdD Hdv1ttrTx1XrGnPCQiUJL9kMjn OEyvy5TmZLTuO32edEUpt7S8 IGN (more content not included)... [facility] Coding Summary HTMLBase 64 YbojveuxASq1nVu+PGhlYWQ+PE 3XVNMxM83omWZddC9CK3rGLK6O ZQBJTXIEZP0KYQ6laYM3OUwkS4 VybiAv YfmwdQPaPD64QXf4DFO2sJnbRG eilK3ikEKkI0e0MtZrKK03rC47 LNncKHLwHdP2OfXieveukWNn K8xaYtKcjAEbSqq+PHRhYmxlIH wzKREqEBfjNGPwVcKgtUyjHS1j Gx5aWVSxSLAsqEjajKAdLdAd t5otCIDcQIkyTE8efJnpE5ObhD S0MVPri0x0Ii78yIH+PHRkIHN0 zCnxVGhsd305JcUyq0yaQFL6 mCLuEYynSXF8B80tq6X7PXPrVV GaWEO9hOC7tT5msDotemckD6Cx lQFgRrH2MWU7oKQwmQ9bwRwz zkqmaZ9lVnm+X98ZIP8NWIADFL 5KBkj4N4KlKxxgoGD+PF11GWNd BQ45pDFkiHNeo2aizJf8OeGy IRAiTAR2oQhfRVfim2SfYBXgT1 7vwSHny1O5SQBjwVxrtKBfXaRu gFI4qX3eEAjpxhdrp7rbnyar Gidzi4zsjn77mB31S27dRKtgEL ZjGEU9PSPySYTpmEwhju7zxM2u Ii8+IMfus8vqm1sjkFf7JxDk QGLglbQlhSfnYKF5x5YpIg45Z3 IaoObmf2NkMrx6sx81gLEft0J3 tOD9CHbdFVFqwJ7lXAskQwT1 PSDuPyEwlQ90oLDnEQolYs2gfH qkhGptLW3pHUTubxhjKHJamF3b BLWzuRLvrCyvBE7sVCXyowdf v372DhPoUOA1SULdcTSoR5VufP 6nRhUjDQFqYDQnO2JtoPTzWCwo M150CFeoNtE2DTCbfeNiA4Ct RGVtoTlfEaK6o9I2Bf9Uk4Btpe ndBID5QPjwCQS4LpXuHzLqKnA1 E7DhViz7HOXsjWrnWZ8lL2Qu PHLbzamtlwfvdHM6JOMmPYRoiS 88eECpGWghOi1mk8B3b442INIk SZBccQ94Qa2sfDdeKHFakKTU jZ1lgfflp7rffsulWmZtDLNtTI s0QUo0QZEanUqjQlNkQVB1QhO2 ICS6gVBilO1qiLjrzplgaO2c Oyc+I97bkN5fFGS1ZHC5hsgfEU ZgldUxLF14NM98T8TtIdqzvRSs bGU+YONyzpInqRieCD0zHeFt u9cde2KqTWxoK4TrJQTjSYhrSw o2WVRtHUK9hAX5yN3uEDSqEGmk i6E6aXM5F2KejjLkyc3gs7rb DVHsBSynM68fbEJcg6Y7TRNzeA G8ZUXjyIrtBgDerG96Udg+PGNv ySxxq3GxBluwj0gab7iozVh5 KfAjNIHlgkJhvQwyOFG7k0ZtSy 13A88cNLhtJBMnMLPsOWHtYUBv qCptdr1ywE1xNc3+PGNvbCB3 cQD4nO4xTHUbPlI0JWlfL785Xk VbvPKdWxkjf6bok5zhtLl4TfSu SNNtktIhqKgeEHE9z3HgAn78 Q70zKPriQSVeDTGwUDXkLADzfW qsrk6lsX2hZo0+XD2nd7hurf55 vN62xOQ+WERyNAO9gLyoMCnt AJUbzG8aMUrfMxA5TKOvNcWkcP 03tMHkWUqvIq3qpJznpLcaGA5z YUHqxremn320QySig1qwUKBr aGJiRZngJPR7O03nt1A9MQMmAQ UqSFP8iAP0dQ6ngHwtccljfMBj bHcwgdCpkApfMSwaOHqrN063 IHRvcDsnPlBhdGllbnQgTmFtZT n9X9TlMts0ALTwbBvtIB1eiTKr XArnCv8hhCvmbEhxPT1wVIDp mecft831EgDqn5hrMXUztWHsIQ cfQSA6O07kg3L7COJgTZYxORE0 sYJ6gQ1iiMxpyyspgCXneQwf qcGrhWnaVMutJAivM888YMXndU bmSiMvlqJrLUJklAU5NT10YZ49 hSSwl4R5pGA9Q3QzCRMtdmgo paxhyGV8NZWdHOGmiU23Gb9aqX hcBx7xMYGtCZU9LCJbjEApK8Js gE3nOjPaQKLjOELtY0CweMVk CSjlN476OXihTuW6QHJelzPfX2 NdEXIzvLqyAlX7a0G9Ny1VY7D6 DI86SC00tEPsr1M0lGO0N9Ht XNZuawdakwlvsBP2CNIkSHCpiW 61Pa3zkIigQq9fIKVxDFT6QFFu jTZwS2MxbR6cWlXtQRSrIGAk Q9WirXRlBIzgX476YXntZkP9HL TuhcGrH6SrYVCupMamJbJ8s1R7 Ng7XDVv0CQ96FP82rNXgl0M3 yWZ6X3WaCJFvndipywflmNV8AF IiBRPkcA91Ff2maTnhDm5vCWDf PBJ6ZGBdmCSpC2HsgE9uYxVd CPSgVWPpL8EkuNVfYBnsU014HF bwUuU9FCMmocRiP7EzEBLbqLnd ZzZ7h5T0Se3BHMRyDT79GHP5 nUV2PB28FT94J7SbNuflrUNspT U+PHRhYmxlIHdpZHRoPScxMDAl DkBpzGxaGO4iYy2xKPVpERWi rYysbRKkOrDeb4wkAXDgBNlvRL 3trDnwQ8GdeJF8FDKtn8a0Id19 Y19jR8DodXR+JYZqvUM6yVL5 nI6hOzKsQrF2TQudP438SuMvoI XrKzgpx3oyk9gjqYp5IeR3NNTy qoImlFxoNVR8r1BlEp39M35t IHdpZHRoPSIxNSUiIHZhbGlnbj 0stK7dVh0+XRMikPK2gQR1pG9s MdPjZiE5CFhyW650XvVdnHZe Qlczs8ztf7lseEy9IhQcVMGvhh CrvEiuEQI5y2UiJf02L1OrcCxb l0QiOek9ya10pMDnj6T8oWL4 N3SzMWVdxcqpjMWjsOzaDV4yVA ObltzfCRZctV5zXCQkQ2v2ZvDz DiL3DAkkS3FpnxA7DEOtuTQb CBwkPDG6X50jf6M1DTTjKEYeHD Z6bCH9yF0ybDsfsecmqPNwwTab adBeyXueAQwwAJrjI186SXNs uDsvMDOcnK7vLKEzzADnmGjwFX 4wNTBpbjsnPlNURUlOLCBWSVJH XC8QJODGPDI5Y2ReLid2XOSr tLroVM3rrUGmKCiwIm3smDesiJ lrKB2hRMWvvnodTQMytT4mDNJd wHKjbIlsXT8lZNAkxbtyb114 OwIoGIL0TEBloWZyS0ExfW7aVg BhOOPpATPuD4DibMBbDNtiC375 UYssThD7JHCnyrNbL7SqKMIf tIvqGuB7f0E6Xi9iWX2dHW2tNY efSY88AU96pTOsw9I7vMZ8J2Sj YPShvsmskpsrsJS1MVLoOGXk zR97cWLmGSveNj4gr0A6o466XD FpWZJtdV99Pp8cxMftPNYflQFK iC8gdsxgr3juvgvcSjStMZQt PQl2BCs4YCYkdBzvHfEwOPN8Qz X9VDM2zLCkzJ6teLmebnbzwD9l Oyc+CiojYFLgtqA6R1QrCgb0 KZBmfNccER6vgBRtIEeuWu5cvC cfdIovQY7qWHKclpxdJUVsqV2g VIQwcALywUeyMF8eTENxkszh w616DnRuKQE0QXTywTPzI5KtdA 9bLgSaMTDrKIPrI6AvhSJvKJut M480BMhwFtX6JGGzrtTkG3Zh CSRjsFwkFhW1r7C7Da1WHW8XOR O7Y6UyEqa8YUDajGszMT8ocIWm ZKzrGv1tjSnogMveUR8hQCIi tmcyXJNvjW9hWWVonGCgcJzmTL 5pYIYsesawq390QoOtGGI2OHAd yRPvX0VbvG4mLsXcWXKtIIVj K5CopAPdDVqtC661SKodRlG0QF HtpgThB9CrFPUprSkzObQ3r2U8 Kf0YuDKfE7ZoS2h6F3BaCohw dHI+DD76USRvOH88lYZpmEQfm8 ichRu4SiKqGVRcYSX6lGufOTyz w0NcFKShZ85muHOfp4A6GVKk yPsmrDYbOhYqlOA1sF8lTQkumu bzr4cfaxeeCvmbp5trmy65yL04 P09rENqdWZZeHFYlEXPpYFMl yKuwsk7upU8mEc3+SBIjyAA0lE G1jZ5uGwRmBuD1NSejK793VnSp wQNfYyqhc4tsy5ajhEq2XiWh ONAaptPrxKukRYM8f3JvYu43G1 9sIHdpZHRoPSIyMCUiIHZhbGln tt9zwF2yZt6+RD3an0ggtt57 aY40yMG+FPOyEEK0gIfmTJfjUC JxlT8nNSuvHpU9GGBsTeTdsL26 eTEbCXeuSd7wsBljxZlbMT9m ABUwhfkji028YgEat3qoTVRmgQ SsDIgbIEP7U93jh1D2OHDsCMAd GDC6tYE0fT4igTkjcaqysENy pAovriOneNjkYQkiRZkoU890OM NxfOhpNdWozHBvR0lvcvORYB7y OjwvdGQ+EMCvCNH5qNwgHMhl OYMwsQ9uWWLcS6a7LwRoEgP5CT vgX7HmtkP7QEHvgKQbLNAkqXZE gK6mxgbwd4copamqDsZrNYUa HNw7LBf1JVLssGziBfZlDWA4Sj H3WQC6zKHlaM4kzMlslzrruU7l Oyc+RklOOjwvdGQ+PHRkIHN0 zXsuMKbyGYXhbA4rJFHtJ0d1Xu XiMsM7VJmlH2BkvzM7WALyvGNd RKTbgPWYvK2gdopqk5cyhwhv MnWlGNWbWJk6OJd5FYHsqIjwTd CkEGM7SpN8CIH5aBPufZ3oeXtb ysqnrP2bSwa+TVJOOjwvdGQ+ ZXJhTTZ8aLchNSvaUOAbsC7fIF WnF8u0WtExVcF6HYytP5JrzsQ3 YPLcvQLrCDLgnJWHyE5prmyb q0sgwxkfLaVlXYVkKQo0CAg1BK HgnBuqGpPtWJR8YpP6RCC9zZNi tS6cnTssnyqfaG3sJdu+UGF5 QIC5VX92QI00N7BwAudapCKjjC U+PHRhYmxlIHdpZHRoPScxMDAl BwUgcLpkCL5sGl0dEHWtMDLa bGx (more content not included)... Normal [facility] CHLAMYDIA/GONOCOCCUS RAINER ( AB/URINE/PAPon 02-09-2022 Chlamydia trachomatis, RAINER Negative Normal Negative [facility] Comment on above: Performed By: #### R PRQ #### [facility] [address] [address] [address] Juan Antonio Ibarra Neisseria gonorrhoeae, RAINER Negative Normal Negative [facility] Comment on above: Performed By: #### R PRQ #### [facility] [address] [address] [address] Juan Antonio Ibarra AFP MATERNAL FOR SPINA BIFID Aon 02-08-2022 AFP MoM 1.41 Normal [facility] Comment on above: Performed By: #### A FPMAT #### [facility] [address] [address] [address] Juan Antonio Ibarra AFP Value 66.8 ng/mL Normal [facility] Comment on above: Performed By: #### A FPMAT #### [facility] [address] [address] [address] Juan Antonio Ibarra AFP, Serum for Spina Bifida Report Normal [facility] Comment on above: Performed By: #### A FPMAT #### [facility] [address] [address] [address] Juan Antonio Ibarra Comment Comment Normal [...] Bifida Risk . For further inquiries contact [facility] at [phone]. . This test was developed and its performance characteristics determined by [facility]. It has not been cleared or approved by the Food and Drug Administration. Performed By: #### A FPMAT #### [facility] [address] [address] [address] Juan Antonio Ren Age Collection Date 18.3 weeks Normal [facility] Comment on above: Performed By: #### A FPMAT #### [facility] [address] [address] [address] Juan Antonio Ibarra Gestat, Age Based on LMP [facility] Comment on above: Result Comment: Reca lculations are not recommended when gestational dating by LMP and ultrasound are within 10 days. Performed By: #### A FPMAT #### [facility] [address] [place] [address] Dr. Juan Antonio Ibarra Insulin Dep Diabetes No Normal [facility] Comment on above: Performed By: #### A FPMAT #### [facility] [address] [address] [address] Juan Antonio Ibarra Interpretation Comment Normal [facility] Comment on above: Result Comment: Inte [...] Customer Services to discuss available options. The [employer] recommends amniocentesis be offered to women age 35 and older. Performed By: #### A FPMAT #### [facility] [address] [place], [place] [id number] Dr. Juan Antonio Ibarra [age] Normal [facility] Comment on above: Performed By: #### A FPMAT #### [facility] [address] [address] [address] Juan Antonio Ibarra Multiple Gestation No Normal [facility] Comment on above: Performed By: #### A FPMAT #### [facility] [address] [address] [address] Juan Antonio Ibarra OSBR Risk 1 IN 3501 Normal [facility] Comment on above: Performed By: #### A FPMAT #### [facility] [address] [address] [address] Juan Antonio Ibarra PDF . Normal [facility] Comment on above: Performed By: #### A FPMAT #### [facility] [address] [address] [address] Juan Antonio Ibarra Race Normal [facility] Comment on above: Performed By: #### A FPMAT #### [facility] [address] [address] [address] Juan Antonio Ibarra Test Results: Negative Normal [facility] Comment on above: Performed By: #### A FPMAT #### [facility] [address] [address] [address] Juan Antonio Ibarra VAGINITIS/VAGINOSIS DNA PROB Abdirashid 02-08-2022 Bettye species Negative Normal Negative [facility] Comment on above: Performed By: #### A 1C #### [facility] [address] [place] [address] Dr. Juan Antonio Ibarra Gardnerella vaginalis Negative Normal Negative [facility] Comment on above: Performed By: #### A 1C #### [facility] [address] [place] [address] Dr. Juan Antonio Ibarra Trichomonas vaginalis Negative Normal Negative [facility] Comment on above: Performed By: #### A 1C #### [facility] [address] [place] [address] Dr. Juan Antonio Ibarra ABO and Rh group post transf usion reaction Nom (Bld)Ordered By: Eleazar Hess on 02-06-2022 Microscopic observation Gram stain Nom (Unsp spec) [facility] ED Clinical Summaryon 2021 ED Clinical Summary [facility] Emergency Department [address] [place] [id number] ED Clinical Summary PERSON INFORMATION Name: ZULEIKA WYATT Age: 31 Years Sex: FEMALE : 1990 MRN: Acct#: Visit Reason: Rash; Medical problem - minor; POSS BODY INFECTION Arrival: 01/29/2022 20:27:46 Discharge: 01/29/2022 21:17:00 LOS: 000 00:50 Check In: 01/29/2022 20:27:46 Checkout:01/29/2022 21:17:00 Address: [address] [place] [address] [address] [facility] [address] PCP: Andie Stoddard PROVIDER INFORMATION Provider Role [...] follow-up with their family doctor or their SERVICE WORKER HELPER doctor. To this they agreed.. Health Status [...] Current Fr (more content not included)... Normal [facility] ED Note - Physicianon 2021 [...] follow-up with their family doctor or their SERVICE WORKER HELPER doctor. To this they agreed.. Health Status [...] Once. Impression and Plan Diagnosis Sebaceous cyst ([id number] L72.3, Discharge, Medical) Plan Condition: Unchanged. Disposition: Discharged: time 01/29/2022 20:59:00. Prescriptions: Launch prescripti (more content not included)... Normal [facility] ED Patient Summaryon 022 ED Patient Summary [facility] - Emergency Department [address] [place], [place] [id number] PATIENT DISCHARGE INSTRUCTIONS Patient Information Name: ZULEIKA WYATT Age: 31 Years Date of : 1990 Reason For Visit: Rash; Medical problem - minor; POSS BODY INFECTION Arrival Time: 01/29/2022 20:27:46 Primary Care Physician: Andie Stoddard Attending Physician: Johnson Wright DO Comment: Visit Diagnosis: Diagnoses This Visit Medical problem - minor ([id number]) Rash ([id number]) Sebaceous cyst (L72.3) The Pharmacy at [facility] is open Saturday through Saturday [...] and/or drug addiction problems; contact the [facility] 07/01 Crisis Hotline -Text 4HOPE to [phone]. If you received any narcotics, sedation, or [...] legal documents With: Address: When: [facility] [place] [id number] Business (1) Within 3 to 5 days Comments: home warm compresses clindamycin for antibioitic see your ob, or Dr Wyatt, for recheck apt ----at some point, this might have to be removed; this is not cancer, but a retention cyst of fat material; Return if very red and tender, or fever, vomiting worse You are welcomed to return anytime. Call Dr Wright, ext [phone], if any question patric WRIGHT< ER PHYSICIAN< H [facility] Medication Information: The exam and treatment you received today in the [facility] Emergency Department were for an urgent problem and are not intended as complete care. It is important for you to follow up with a doctor, nurse practitioner, or physician?s pediatric assistant for ongoing care. If your symptoms [...] so we can reach you if necessary. [facility] Emergency Department has provided you with a complete list of medications post discharge. Please inform your talent analyst/provider of your visit and for further instruction [...] Epidermoid Cyst (more content not included)... Normal [facility] TYPE AND SCREENon 12-30-2021 TYPE AND SCREEN Antibody Screen NEGA TIVE Blood Bank Notes performed by CV on 12/26/2021 ABO Rh Typing A Rh Positive Blood Bank Notes performed by CV on 12/26/2021 Normal [facility] Comment on above: Performed By: #### R UBIGG #### [facility] [address] [address] [address] Juan Antonio Ibarra HEP B SURFACE ANTIGEN SCREEN on 12-28-2021 HBsAg Screen Negative Normal Negative [facility] Comment on above: Performed By: #### H BSANS #### [facility] [address] [address] [address] Juan Antonio Ibarra HEPATITIS C VIRUS AB W/ REFL EX QUANTon 12-28-2021 HCV AB 0.2 s/co ratio Normal 0.0-0.9 [facility] Comment on above: Performed By: #### A 1C #### [facility] [address] [place] [address] Dr. Juan Antonio Ibarra Interpretation: Comment Normal [facility] Comment on above: Result Comment: Nega tive Not infected with HCV, unless recent infection is suspected or other evidence exists to indicate HCV infection. Performed By: #### A 1C #### [facility] [address] [place] [address] Dr. Juan Antonio Ibarra HIV 1 AND 2 WITH REFLEXon HIV Screen 4th Generation wRfx Non-Reactive Normal Non Reactive [facility] Comment on above: Result Comment: HIV Negative HIV-1/HIV-2 antibodies and HIV-1 p24 antigen were NOT detected. There is no laboratory evidence of HIV infection. Performed By: #### R UBIGG #### [facility] [address] [place] [address] Dr. Juan Antonio Ibarra RPR QUANTon 12-28-2021 Rapid Plasma Reagin, Quant Non-Reactive Normal NonRea<1:1 [facility] Comment on above: Result Comment: Plea se Note: This test does not meet current guidelines for screening and diagnosis of syphilis. This test is intended for following treatment response in patients being treated for syphilis infection. To screen for syphilis infection, a reflex cascade that includes both RPR and a treponema-specific assay should be utilized, such as Treponema pallidum (Syphilis) Screening [place] (046423) or Rapid Plasma Reagin (RPR) Test With Reflex to Quantitative RPR and Confirmatory Treponema pallidum Antibodies (479693). Performed By: #### R PRQ #### [facility] [address] [place] [address] Dr. Juan Antonio Ibarra RUBELLA AB IGGon 12-28-2021 Rubella Antibodies, IgG 3.48 index Normal Immune >0.99 [facility] Comment on above: Result Comment: Non- immune <0.90 Equivocal 0.90 - 0.99 Immune >0.99 Performed By: #### R UBIGG #### [facility] [address] [place] [address] Dr. Juan Antonio Ibarra CBC AUTO DIFFon 12-26-2021 BASO # 0.0 103/ul Normal 0.0-0.1 [facility] Comment on above: Performed By: #### A 1C #### [facility] [address] [place] [address] Dr. Juan Antonio Ibarra Basophils/100 WBC (Bld) 0.3 % Normal 0.2-2.0 [facility] Comment on above: Performed By: #### A 1C #### [facility] [address] [place] [address] Dr. Juan Antonio Ibarra EO # 0.0 103/ul Normal 0.0-0.7 [facility] Comment on above: Performed By: #### A 1C #### [facility] [address] [place] [address] Dr. Juan Antonio Ibarra Eosinophils/100 WBC (Bld) 0.4 % Critically low 0.9-7.0 [facility] Comment on above: Performed By: #### A 1C #### [facility] [address] [place] [address] Dr. Juan Antonio Ibarra Erythrocyte distribution width (RBC) [Ratio] 13.5 % Normal 11.0-15.0 [facility] Comment on above: Performed By: #### A 1C #### [facility] [address] [place] [address] Dr. Juan Antonio Ibarra Hematocrit (Bld) [Volume fraction] 38.9 % Normal 36.0-48.0 [facility] Comment on above: Performed By: #### A 1C #### [facility] [address] [place] [address] Dr. Juan Antonio Ibarra Hemoglobin (Bld) [Mass/Vol] 12.9 g/dL Normal 12.0-16.0 [facility] Comment on above: Performed By: #### A 1C #### [facility] [address] [place] [address] Dr. Juan Antonio Ibarra IG # 0.03 10e3/ul Normal 0.00-0.03 [facility] Comment on above: Performed By: #### A 1C #### [facility] [address] [place] [address] Dr. Juan Antonio Ibarra IG % 0.3 % Normal 0.0-0.5 [facility] Comment on above: Performed By: #### A 1C #### [facility] [address] [place] [address] Dr. Juan Antonio Ibarra LYMPH # 1.4 103/ul Normal 1.2-3.8 [facility] Comment on above: Performed By: #### A 1C #### [facility] [address] [place] [address] Dr. Juan Antonio Ibarra Lymphocytes/100 WBC (Bld) 14.5 % Critically low 20.5-60.0 [facility] Comment on above: Performed By: #### A 1C #### [facility] [address] [place] [address] Dr. Juan Antonio Ibarra MANUAL DIFF REQ NO Normal [facility] Comment on above: Performed By: #### A 1C #### [facility] [address] [place] [address] Dr. Juan Antonio Ibarra MCH (RBC) [Entitic mass] 29.6 pg Normal 26.7-34.0 [facility] Comment on above: Performed By: #### A 1C #### [facility] [address] [place] [address] Dr. Juan Antonio bIarra MCHC (RBC) [Mass/Vol] 33.2 g/dL Normal 29.9-35.2 [facility] Comment on above: Performed By: #### A 1C #### [facility] [address] [place] [address] Dr. Juan Antonio Ibarra MCV (RBC) [Entitic vol] 89.2 fL Normal 81.0-99.0 [facility] Comment on above: Performed By: #### A 1C #### [facility] [address] [place] [address] Dr. Juan Antonio Ibarra MONO # 0.5 103/ul Normal 0.3-0.8 [facility] Comment on above: Performed By: #### A 1C #### [facility] [address] [place] [address] Dr. Juan Antonio Ibarra Monocytes/100 WBC (Bld) 4.6 % Normal 1.7-12.0 [facility] Comment on above: Performed By: #### A 1C #### [facility] [address] [place] [address] Dr. Juan Antonio Ibarra NEUT # 7.7 103/ul Critically high 1.4-6.5 [facility] Comment on above: Performed By: #### A 1C #### [facility] [address] [place] [address] Dr. Juan Antonio Ibarra Neutrophils/100 WBC (Bld) 79.9 % Critically high 43.0-75.0 [facility] Comment on above: Performed By: #### A 1C #### [facility] [address] [place] [address] Dr. Juan Antonio Ibarra Platelet mean volume (Bld) [Entitic vol] 10.0 fL Normal 9.5-13.5 [facility] Comment on above: Performed By: #### A 1C #### [facility] [address] [place] [address] Dr. Juan Antonio Ibarra PLT 194 103/ul Normal 150-450 [facility] Comment on above: Performed By: #### A 1C #### [facility] [address] [place] [address] Dr. Juan Antonio Ibarra RBC 4.36 106/ul Normal 4.20-5.40 [facility] Comment on above: Performed By: #### A 1C #### [facility] [address] [place] [address] Dr. Juan Antonio Ibarra WBC 9.7 103/ul Normal 4.0-11.0 [facility] Comment on above: Performed By: #### A 1C #### [facility] [address] [place] [address] Dr. Juan Antonio Ibarra CULTURE URINEon 12-26-2021 CULTURE URINE Culture Observations : LIGHT GROWTH OF MIXED GENITAL ALONSO. NO POTENTIAL PATHOGENS SEEN. Normal [facility] Comment on above: Performed By: #### R UBIGG #### [facility] [address] [address] [address] Juan Antonio Ibarra GLYCOHEMOGLOBIN A1Con 2021 ADA RECOMMENDATION SEE BELOW Normal [facility] Comment on above: Result Comment: ADA RECOMMENDED LIMIT 4.0 - 6.0 ADA THERAPEUTIC TARGET < 7.0 ACTION SUGGESTED > 7.0 Performed By: #### A 1C #### [facility] [address] [address] [address] Juan Antonio Ibarra Glucose [Mass/Vol] 114 mg/dL Normal [facility] Comment on above: Performed By: #### A 1C #### [facility] [address] [address] [address] Juan Antonio Ibarra HbA1c (Bld) [Mass fraction] 5.6 % Normal 4.5-6.2 [facility] Comment on above: Performed By: #### A 1C #### [facility] [address] [address] [address] Juan Antonio Ibarra US PREG TVon [...] by: FELECIA GOLDMAN Date: 2021-12-07 16:59 Normal [facility] Coding Summaryon 11-21-2021 Coding Summary HTMLBase 64 WehtooeoWDu7zOx+PGhlYWQ+PE [id number] MEIHEMTZZX2ZMI4psLB7GPxqK7 VybiAv LieqsSRvMP25TWb4WFZ3jVdrFK imfQ4ytZYmL7h0AmBiWJ65oJ58 HPetELDjHcC1ZeCftylcpALm I3xjBlUukBCbFuk+PHRhYmxlIH vuYEKtKWdcQBBfDeWocMctYR1x Nq4sUSCwIJZfaHvhsLTmSyYc g5ufFAMvKNxwDT3jhOxfJ5KvzJ B8LDXhn0b2Mr32rFU+PHRkIHN0 bFkfJObbu493RmUbd4rrXTS1 wMWsRRsfQPX5P89en8L2MQHcXD ThFRD7nFN9xC2wtRsjetfsX6Le wPKpDaZ4QRN5sNSxkP0mvNea hsyqaS5oVlb+M73PGP7YHEWOWD 4PLqk8W7XoWitrpPR+JI82XXPu SN08yWGxlKTad0dodXr5GyYe PANiACK9iJkvEBffl9SeXFHwN7 9fsJKqd6W8QEGgxVccsCLtUdHj uWV2jT1bUCwuscelo8uknfse Nfhcp4ijup05qH18Y49dIPmdJO RdXNH8XAHuDQWbsOezmp4pgV5u Ii8+ZSvua0pdb8nuiSh3GvBb NLXmheRysHbgTDO3n3HiYk59R9 AudQwgh2MdXxe3qs31zQDyq0R3 cIX9NZxaRRViaW3lAXzdOxF6 EGGeZbJouZ69iMLtXTshIe5zyM xlsIqxZS7aANBnxhfhKAEdhL5p WDNrlLWabVvyHR6bKABklghn l611NjJlFOA8MAUxoJIbU5MzeW 0xHkWaGKRiBZUsT9KtmVPmYYol U521EDoqBoZ2TOAqloLxL5Fj HELlpEkkLxO8y2X0Cz3Om6Itxx jjQLI0OZntVBV6UiZ7HvDgIwO9 S8FyAfi0BSBggExuVJ0fQ0Ge AEXumgisgpldmNH7YGUxYSVhiK 00dIXeWLuaLt1wb5B2g190OCGq SFNvhT08Ua9pgFsgCXCmjMTK bB4xwetfi4ekwrqkFyJlYDGvMT i8HSj1PWMufHadMrSnPSH6EpK8 UQG2vIPrhP0baQfsmqiglD1l Oyc+K59wuG0rENJ5WDR8fncxPV WkimSuIZ78ZN17I0HxPdbncZNz bGU+RIPapnZzzUthIC2qDlQc k4ejv8ByEGkpM2KpMIBhDZlqHp v7UWMbSLM0fPV6bR7hBAMdIMkf y1J7xWJ3H2GpfaHqhp5er5sr KVMtSTbbY56ufZXzh3M0UPRnnN I5LJBnjCwvPdHxuM37Ogj+PGNv kSbbk0NaXfgtf8pop7qumSh1 SvQiOTDoplWjzPzdVRP2s3CbEq 06N23bKYxuRGDvPFRvZBJjWCMb zCaucg9brC0hOq5+PGNvbCB3 mSM7dE5xHPSsCeA5XSuiI251Zw YehFWvVrjnj2wnf0zsqPo8JjOp XWLgnaQthDubXBD4n6LaSf91 W11oMWgdBIKiBEBnMGGpRUSgsB rdnt1xsJ7kZg7+QI6de0xbsh12 iX01uVX+WCFwIIH2eRlmISst WVWbqK3wGMlrHtB3BROtXjOtnJ 42sHUtVKvmXr1yfEbdyXwdME8e XUFcfllpo794AxCjy7wjIGTk rARwQPpgCBG7K98gi4F2DLXjMD QjSUT4hRL4rA2riWqqcvuodDTu oVjibcImaHhuADfwULejB081 IHRvcDsnPlBhdGllbnQgTmFtZT y0S7QhMzq4HZRogQmgRK9utJKl GQkcHm1jiRtooZwjKS8aTPEi fjanj331KkGus8naJCGihRHpFU ogJKT6T08ub0M1MBFnEAGfXRY2 cFV1qG3zfEzkbzflqSBjsNyo yqTsbKgwWFxaJGvcP161LGBlhP tjXmOsznAvOZJtzVZ6KX72BW17 uARkx8U0qBZ8B7GqHHLcnbpw xuryeBO4BPRbJHJupH01Wu7jiX aqKz7gBXGcWAW1GFVldYBsO6Ft aC7pXqApHXUzFZWdF8CofHCs SLrkK298WFrsRwL8CGWwnuQtR9 XeVBVqfYedFcY8x9I9Nz7AF7D7 ZL75YT40tKGoj7U2bNM1L7Ld ZDEwgrmwejqqxYJ0EYQyXHYedJ 80Uv8eiQvkWe1kEIRtBLJ7GVCr nMPtL7AldU9cMyHwYFHuGYXc N8OlaIMuAAcgE508XGvfPcX6JH PlyxDmT3MsZTLpaPlgWyC9g9T1 Lu3ZSLa6QU36AH45tFSrt7O5 cEP9Y1NnPBDggvwhfantrEW3OP DmNYRinX91Gp5vkLilOe0kADWz BDO9GSXjeCFxY1XjwT7eCdSk AXHoCCBrT8OsnLIhOEhrO358OD vvNnD8SYFdmkBaE6UaMITkrNjw MkN1a4S1Vr5HPCYwMV46ZVO0 uMT5YU20WE70H3BvAxajoKVxiJ U+PHRhYmxlIHdpZHRoPScxMDAl CcDqhPyiZS1mYr0lVGGeEPVn jAfiaWKnEzGux0pmQHXoCDjiCA 8baPjpL4WqdAQ1KTZae3h8Az45 W72qT1ClhTB+ZRNcgFY7sON1 nI8qQgTcNwQ9CJylA201TbVfaS VpYerti8kob7akzOp1XkD8CMZt trMdrPgmKDG9g1RlBn17P46b IHdpZHRoPSIxNSUiIHZhbGlnbj 3doJ8rLv0+NGGitQS9aEX0kL2m VjYuTeM2AMkiC424JlAzcOWv Whkjl9lua8akuFr6VeKiLJUvxv LetGcvFES7e8CgGl16U6AnsZxu p9DaDru7bk79nIEnv6M6tCY3 Q0LfEVRghvwpeEIqiZbkGJ3mED ElgsmiFGJwwU1cUZTfS7w6EpCr VaZ6CVdrX4PsmiS3SIYalUSm PIhmXIC4L29nm3M0RUTaGCPeIT Q5vNX6dY0wtHzweygysRCakDzd piCfwOswEHqwFGpjJ772ENXt hYuyEVYmcI3lHYIucKUeaHiaKQ 4wNTBpbjsnPlNURUlOLCBWSVJH MC9XNUQQYPM8Z5VjYcp1OQPf wCgzBS2zvTXgTIvwPp5vdLjbqY ooZT1aJEZdkykzNZFyxT0rFAAo yZPwtFerCF2bDVOmmbkvp032 AvTyELQ1EGAnxSDxC2HneJ1eHa NtSVCxUIOeH2QwqWVrXHtvN018 KGnqWgH0VFBuykFxC4JdOQGd rFjdMfA9n2I5Wk4zPH7qOC8mSY vxFH01RS25fSRrd0I8rZA4A0Up YLJihclkiskcfNC5PKKsPMZa cM26kTTwREmyJc5li1J0y063CS OpYSByrQ73Es5rjBcaOTXqfASH oX9apxamx8ogykpsErDgZJMo AKp8OKt4DZKywKrkKcDsTOZ8Cn S6YSV5rOXaeR6euKuhqqrmlD7b Oyc+GfmfPDBvacA2K5PvYnp0 DHFunLhfBF2woXChEJivBt6xkS tewUkuTF3tSIJcicubGIJrhC2s MASoeTXbvZzwGQ0eSBLkdyqr e141RfLkLPX9PKKlcHLxN6IfyE 9bFcMeANXqPVRnZ1XsnOGlFIof O916VOjmUoZ2LSOzlzUuF2Bg JSVfySfhDyM6z7I6Wt9MLT0LRS G8I1VoClx6WJMocOysWU1yeWFv HWqyKv7prVfvgQlsHU2bMMUo zdqcRSIyuZ7nNTUujJZxfVvuPV 5sUNJaemfhc654IwXoKMT0MGBe ySVoA8JooO3zAzMlXILaJAOy N0VoeSCtNRvlK296CXyjNmX2VK KqjtTxU9RkWCEdwEftKpA3d2X0 Nh6ISNtbsKG+XG33gf25Y9Ib QoutYcy9HMHsDDZ6cUJ5zP3dNP QcYTfbm8G1mUG9Q3OxkiJoqx9e p6qdUTXbHYrhM91frOBhi8H3 PYJgyKW1JLQxzWlpIwZobQ98De c+WFMwtXewq4OwOchvy8yuw5wg vVe1TqEkWQGrsbXdiSojDRZ2 z5ZjJr94F94uBSbySXRjOFGxUJ GzUBTtcNrunb7crF9aYj8+PGNv sYL4wPF4wC9aBtMwIjH5TJcg J566UlPrhQIrLbqyf6hoj1ninJ n9GbIpYKQzyuZxiMohDRF0q1Sf Bi67F8KteBheo6SxAhs2it57 hGCmo5U5aRK3O9ErIYDwcqwdsA VxpLgyAS2vLUAdrfwySIJckR1g KZKzU8f0DtQcMzN0WPdiP1Yw yqF0RKYncWJoWXPhvVLTkY3cdl edz5jmndidIpHpYHXiFQk6OYy4 XEDgxDghImEmCKJ6XfU4RXU6 tTMhdW4frMkmrxpeqV8sXmz+UG e3t7heuYXoUB0btHB8HS47PH46 mOBqd0Z8qIC4W2JePQImupsw damrzUE7YLJsFEAiyB74Sc2obG bgJj9cKAOeJWA3DQQyjPUuI0Sn kF9cAcZrLWLwJIExR5CqmWYf VPdiJ728ITcjJgI2QNPcjaExK6 WkJUWpvRdhRxL7i5E4Ak3EDE20 BU09DO34jPSuk5P1hXK0A1Gp FXWeyqxrrmcybGT3JLCjNFIrbK 40Id2hoMyeRs0hSYCbTAH6TEYp rWXkD4RhdT0ePxCjWXIeSWRf V1FxwZLjFZmtY370VRgrQrU6OU TzpsYxL8PlAILfnYoeRiA1b1M7 As0DRv93NF62RL77sBHwz9R2 yFC8Z4ZyGEZtaafpapbptTC7PK GpQVInvN90It4qrZmbQe1jFHFd RTP9HEQpdQYhB7DlbZ9nBcBk JRTbVJEcA2SgoROtNDxhM828IO edDvA7GWLqhjCuA3UbYVQcxXtq BkC8l0S1Kw9FQMmkoae1A2Im PjwvdHI+DS64CBRbDH20mUHkhZ Rvh7rixOc0SwImMXUuLBC7qHof OSqzt0LmVLVzS49vnSCqp2Y5 IGN (more content not included)... [facility] Coding Summary HTMLBase 64 HeedkmsiCUo9nAl+PGhlYWQ+PE 6PFJVtW45wpTNnwN0BW9rNOC8M UYRYYVEFLD2KAC7jsVD7WTxrR2 VybiAv NpozkNZmKS80NQw0QFS2oCmkQZ zknT1syYMhA9g0OcFiUR78vJ58 DUniGOVfQjR0PdYxkarjuMPt O3fkTpVgoYZuNdf+PHRhYmxlIH nuTTYaDIbcSWQaNdCftYaeFO4n It4nGRLuYQAetBefyUQyQqWn c1abFPBbUUfjLR3atEhqE1ZpyI I4TFWna6h9Pw74hHN+PHRkIHN0 oOjuLFchw420NeRrw9yyAUL2 jIGwZDiqEKX8E54ok7A5PAWkQL ZwPYA1wJT4dP1lzKimfyrcB6Tx uCIkXrD3SVV9xHEjtX4jxYwv ibtpxF7dAli+L46CZY9AJGKCJB 2GMfm2R3AfCkaipUT+QB79PLWy WK64bVVbkAPyp5xlmDk2IsBp IZYxUPZ1rZssZKdod1EkCXWgU4 0evHSom4U7BLOvvQhqkLSrWhEv hSY5aN2jUZznycyej8xxtmwq Mufut7ykoo53nF10N91eTZuiMD KqDRP0LHTvAWNyqAsbhn8xhN7f Ii8+ZNrww5axt8gheUo8MhQs RFBaoiLvvIelWFS2q0UeQu30F2 MykJlle8MjJqg1vw10kPHsk1N6 cHO4LCxwUBVjxA4bVFjaKnW6 RSYlXmSngS63gJEkSJopDt2tiX cxvOeyCW4eLKSicvupNZHyuQ0u SQUmyBGczDzcGA6aGKLeiaeh f359GcZrRRF1LKXfpKRpV1IqkO 6qQkZgPNTzJBXlH7NhhVMyBQcu C059STlnJwU6EXKizrCwM7Yp JJKsjWkpEgW8f4H0On2Zl9Ysln bpMTT1EBxmWUN3PuY7XfHfInH7 X6NgPpk0HEBduSurMP5gA6Oi DKOvxmypbmrgyFI9UZYaNPGheD 41pWQsJBokKq1su5C2p551GMTz VVBbkR70Bq1euLrqQYXefOPK fQ3veiyxk5hibfmqKkQaZRPlRP a5GNk4BIWcbIkhChSvHEA0XpH3 EBU4kNMynC3phIknqcwslS3z Oyc+F46haH5mJRX3FXF9rbalFW AnugYcAJ91GK53I7JpDkwuyMBh bGU+MNEoexUyxZmvBS5cZlNh o6nml1WeNYbdW1QlPONbHCofFg n9IHRjNXC6eSX5xS2lKHBgLTjy o9N4uQA5C3ImflEmdu2vz4ei JOUkTVedO21tbWGxr2I4KQZkmK E9YJBsiCdoQhJgkW01Cnn+PGNv sBzau4GaUudis5ycy8rnaTb5 EwCvRPRvuyPluCzhDYC3s8LyNk 31U37pBAzxBFHiAMOtZAMtHQWp uBziac5euI0mIv0+PGNvbCB3 wXB0oQ8mFGVsFiL5USknG397Ry MwdNWmVnadb6gtp5zhmKb6UvQl MSTootLlzJwbAZL5n2XmZn42 V87gVCwfTNRfVPEdLNXfATSyyC zcdi2ndJ2rVd8+AV5dm7deae28 sX30sJX+CGOuBHP5hRncYZct YPNaeE1xNAgkQxW1KCMuRsJivK 77sURdAEweXt1jyBupxZcvDX0s SYUbawyey105HgVio8jtWLNg nTZtQVzlKWX7Z81te0S5ITQaQE XiSRE1iLB0vH9btHunglnaeCSa iYiuczZkwFuvCZjzMDjwL145 IHRvcDsnPlBhdGllbnQgTmFtZT c2M4GtKfh2XYAjuPuqRT1tfTHa CPzoVj4yyRypwErnKR3vQQPv dqkiu372KhVuz3srIZLosFInYN gwTKU9E72cw3Z9FWKbYSCwULX5 eSX2pS4syPogbyucdGNspUcz fhXjeIhfSRdwPJicS536OSOhgG diJbCwljLuUGQqhGY5OT54DJ46 nGFsm7E5kNP9L2IzZRUnbycd cdqdcSA7ODMvLJJkpY79Tp8uaQ gbNn2xJPSvVTX9YEQfeDUxC2Rf sZ4dFwHpCGLzSVLtR9XbtMCr IDcgM609INgoGbP8XHFltgUfQ8 RrOPWcxVltWqS3b6J3Gn6KT6B7 BD92RQ85qIUkh7F9pDB3O0At XKTracyoeobcvKT5SAWfPQNvdE 20Ds7dtLahQc6hBYYfTFH8YDWg kFOnF6NjeY3rWdVhVMQfACBc O1IxuVMtNIrhO819KOzmHqH6LG HjmbSjY6AlYIZqvBzpExW2t6F5 Bw0VZBf8XM23LO21sGYeb2J5 dYA5W1OmKLXlsepqickqzRH3SY EcMQUyoL06Hx9vfSyzPw4sTVPe JLJ6EQPckOHkU0VphU4gHoHx VTGmNYPvE1HhhGZsYEfdC976VA kqDcJ4MYHrmmKeA8CxSMBuzYmu MhR2t5C8Vi8WCFIkKU87JJR0 yPQ8AE72LI54P5QhWhbelOGdlK U+PHRhYmxlIHdpZHRoPScxMDAl OoZbqBppZB6mSc1hJGSfOIXj xIiibMSfVqLdr8kaTMOhGOnkPL 3taXruT7RlrZJ1UWIgd6m6Zx26 V35fD7VmxMK+YJXfbIQ9gTT4 eU4dVyZoSvA7XMenF166XsWevB JqNuynu9hbq0kphUq0AmT2JNAu ycQgcSnuXGL5n4IqNx52W45d IHdpZHRoPSIxNSUiIHZhbGlnbj 9thO0qQq8+OPOhgGU8rNS4uX6d LqRzMmT5TOrsB311JaNnlARj Azbok4snm9vvqUd4QsTsZBQiso AouVllMXB9q3QgWh13D7DntHts l9UaWqb4dt24yWBfu0N6lKN4 E0KeLCJcryjkkMRnsPyzTW1lJX BrktuhKCSjeH0mVAQtH0e0HeTc HfC6SHtrZ0GpzsP1CLBkbFDk ZWxdLRJ2H14pt4X7BNKbLAUvHC W7mED3eI9oySucslifxLEiyJou dmVpzZjiIYfnUFhzO882IJZu fOmlMUIsxI5pVLWvqVTmqXhaBY 4wNTBpbjsnPlNURUlOLCBWSVJH AV6DYSZAFTN0K0QuIxa4UUFp zIspBW1yfAMoTIddWr2ayXuwbP eeSA2fEPXjitnoIIGvpD3eKBAv nFVteKibDR6dUKWcowheg269 EpCuCTI8ICOyiCFgE3NhxH5pYw OuJWPgKNJdW3NxsPLfJEogS016 TBhrBlP6QHVwuyVvY9TzFELq wTxjYoP7x9N0Ii2vBY2dEY2oVB hnAY45JO32bMMsw9K5rXI4J4Gp DMGlnxavrpafyLI9YWDdEFWg xD97lNMdLOipSx4sz3K3p822IV MwQDDhrH22Qy2rsTdfSVLbiFWD eN9yhhrho2cdyslzBsXoRPFs FGq0AZg8DJNksZquZtScLZW2Nm F1HLF8bHOaiE8dyBnbydprnR7l Oyc+FuktXPVixlJ0Z5EaMvr0 RRQfiWigQS4ibOEtJStiCj1riH antSnmZS4pFFVfdsjfTEMqxH5w GEZseIOsiSynAZ7lQSQlykro f735PvBqGKI1FAQzuUDuM2PpcM 0eYiFbDACbNZCrU0GrtKOtVGrg L618AXdmQlL0QPOcgjEkM3Cj ULVkkVwqPzK7d4P7Ft6GYU3YWQ D0P7TfLiy0EIUrxKpvTN4vdTSg SBhmMn8onGchaHmwAA0mQRVy nymxGFGqwP8jLRUiuRIdfGhxUZ 2tWHZaymjpo054QoCuPCM1GYQa uPZrW1QbiR6yVjFtXUPtFKBg B1TqhUIaLYxwA620QReaBzU3FR NaleQyG9YdLTXojUoiSmB4s0B9 Zv2DtYJpW5CaN2e6H9TsQqsd dHI+AO66ZDWjKP70mCMbjWVhf2 vjmSg0IaHjNTTbZNY1hCuoBFyg b3JzBDFtF51dvEUjd4J9YGMd tRjxoSUzUyNglAQ5iB3vCCvjyk tol3uzfmtmIbpib6qsni15rB44 C29vZYvzBBRpLSIfIXHdDIFf eVgwtu2umU5rTg9+VCCnpDH9kN I3kW7rPfYcUnU3MDvaX811YcLe hXTrAdpkm4yrk9kouIf6JiAh ULMhneMxfKewFSZ7o2ChZs55B5 9sIHdpZHRoPSIyMCUiIHZhbGln dw2rfD9xUa9+SK8ej9fcvm05 tL11tEQ+OWHyVXQ7wVjfKCdyTC QxxU1aOFomTeV1WBTdXkSbjM30 aMTcLHtnEw4laIaspLeyBD4w CQDshvivh386CbPpn1adHIAenY YhZJxvZJQ9T77vd0J9WRFvICSt AGO7sJM9eB9adDvasdeviKJx zBhkbtVoiXgmCJdzCTfmE563ZT WkbZewPpVqlJGnH1ekzmSWGR2g OjwvdGQ+BHJuTGT8uCloKOwh CBGobF3hCRFqE5j7JiJoLhQ7BW knL5RkufN0VUMyrIZvVDRqxTRL uT5vxmefl5nvwtkcYrBwMMCm BWc1TCf2IIXsoRjcYaIpYRW1Rj U0NYT3iWRbcQ4prMteqxzviQ3c Oyc+RklOOjwvdGQ+PHRkIHN0 cSfrTIrnJYYdzC3jYSQkH1c2Fk QtIiG8DXakE8LbqqX2ZUCikONu QEKibEFJkX7wtdtew1tleweo AaZrRURrPXv3RZd4OBLwnPdeVp JmVDQ6LkV0OZI9rVLwdM4olOdm wekpoA0rTqf+TVJOOjwvdGQ+ PUQmLWZ8aPaaCFqcXSBfdN2dQH HeH2u5AzJkXyD0CSszZ0LbsgM4 LLKymGCtZRCgzXVBeI9smhar n1ajuebsGcFkLSYsYFt9CTx1DB UnwQvoNmLhTVL6SfL5HZS9cAGr xR7pyGnfgymbuG2dTgr+UGF5 FMH4ME34TD27Q4KjVwxvkFRqpK U+PHRhYmxlIHdpZHRoPScxMDAl OuCsmGfyTD0gAs8dSDLrGGLc bGx (more content not included)... Normal [facility] ED Clinical Summaryon 2021 ED Clinical Summary [facility] - Emergency Department [address] [place] [address] ED Clinical Summary PERSON INFORMATION Name: ZULEIKA WYATT Age: 31 Years Sex: FEMALE : 1990 MRN: Acct#: Visit Reason: Rib/trunk pain-swelling; ABD PAIN Arrival: 11/13/2021 16:30:24 Discharge: 11/13/2021 18:01:00 LOS: 000 01:31 Check In: 11/13/2021 16:30:24 Checkout:11/13/2021 18:01:00 Address: [address] [place] [address] [address] [facility] [address] PCP: Andie Stoddard PROVIDER INFORMATION Provider Role [...] Follow-Up: With: Address: When: CUONG ORTIZ [address] [place] [address] Within 1 to 2 days Comments: Diagnosis [...] results be sent to Dr. Ortiz, your SERVICE WORKER HELPER physician. She will contact his office tomorrow [...] Patient/family/caregiver verbalizes understanding of instructions given Comment: [facility] ED Note-Nursingon 11-13-2021 ED Note-Nursing [...] 8 with steady gait and no assistance. [facility] ED Patient Summaryon 022 ED Patient Summary [facility] - Emergency Department [address] [place] [address] PATIENT DISCHARGE INSTRUCTIONS Patient Information Name: ZULEIKA WYATT Age: 31 Years Date of : 1990 Reason For Visit: Rib/trunk pain-swelling; ABD PAIN Arrival Time: 11/13/2021 16:30:24 Primary Care Physician: Andie Stoddard Attending Physician: Gamaliel Wyman MD Comment: Visit Diagnosis: Diagnoses This Visit Elevated blood pressure reading (R03.0) History of abdominal pain (Z87.898) at early stage (Z34.90) Rib/trunk pain-swelling ([id number]) Prescription Information: If you have been given a prescription for narcotics, seek immediate medical attention if you have any difficulty breathing or any sudden status changes such as confusion and sleepiness. If you or anyone you know is experiencing suicidal thoughts, mental health, alcohol and/or drug addiction problems; contact the [facility] 07/01 Crisis Hotline -Text 4HOPE to 284582. If you received any narcotics, sedation, or [...] legal documents With: Address: When: CUONG ORTIZ [address] [place], [place] [id number] Within 1 to 2 days Comments: Diagnosis [...] results be sent to Dr. Ortiz, your SERVICE WORKER HELPER physician. She will contact his office tomorrow [...] and treatment you received today in the [facility] Emergency Department were for an urgent problem and are not intended as complete care. It is important for you to follow up with a doctor, nurse practitioner, or physician?s pediatric assistant for ongoing care. If your symptoms [...] so we can reach you if necessary. [facility] Emergency Department has provided you with a complete list of medications post discharge. Please inform your talent analyst/provider of your visit and for further instruction [...] Temporal: 3 (more content not included)... Normal [facility] hCG Quantitativeon 2 hCG Quantitative 20097.0 mIU/mL High 0.0-0.6 [facility] Comment on above: Order Comment: Lucy whitney call or fax results to Dr. Ortiz's office Result Comment: Resu lt confirmed by dilution Post-Menopausal Reference Range is: 0.1-11.6 mIU/mL Performed By: #### 7 [id number] #### [facility] (DEFAULT) [address] [place] [address] Coding Summary.on 12-19-2018 Coding Summary. CODING DATE: 019 FINAL [facility] DSC STATUS: Left Against Medical Advice PAYOR: [...] Boykin Date Saved: 12/19/2018 10:[address] [facility] ED Clinical Summaryon 2018 ED Clinical Summary (Inserted Image. Elena ble to display) [place] [id number] ED Clinical Summary Person Information Name: ZULEIKA VILLALTA/[facility] Age: 28 Years : 1990 12:00 AM Sex: Female Language: PCP: Marital Status: Phone: [phone] Visit Id: Visit Reason: Test; MENSTRUAL PROBLEMS [...] 12/15/2018 5:58 PM 12/15/2018 5:58 PM ADDRESS: [address] [place] [address] [address] [place] [id number] PHYS DOC NOTES: MEDICAL INFORMATION: Prescriptions Given: PATIENT EDUCATION INFORMATION: Instructions: Follow up: DIAGNOSIS: Normal [facility] ED Patient Education Noteon 12-15-2018 ED Patient Education Note Normal [facility] ED Patient Summaryon 019 ED Patient Summary (Inserted Image. Elena ble to display) [place] [id number] Patient Discharge Instructions Person Information Name: ZULEIKA VILLALTA Age: 28 Years Arrival Date: 12/15/2018 4:37 PM Discharge Diagnosis: Primary Care Physician: Provider Information Primary Provider: Advanced Bone Tender:None The exam and treatment you received in the Emergency Department were for an urgent problem and are not intended as complete care. It is important that you follow up with a doctor, nurse practitioner, or physician?s pediatric assistant for ongoing care. If your symptoms [...] opioids can be used to help relieve [id number]-[id number] pain and are often prescribed following a [...] be struggling with addiction, tell your health child care attendant and ask for guidance or call [facility]?S National Helpline at 2-295-715-QIMK. j Source: [place] Department of Health and Human Services/Center for Disease Control & Prevention [facility] Medications Given: Medication Dose Route No medications found. Medication Information: Comment: Pharmacy Information: Thank you for choosing [facility] Patient Education Materials: JADEN Jacome [place] , have received the following patient education materials/instructions and have verbalized understanding: Patient Education Materials: Follow-up Instructions: Prescriptions: Patient Signature __ Date Clinician/Nurse Signature Date 12/15/18 17:58:10 [facility] Progress Note-Nurseon 2018 Progress Note-Nurse Patient: JADEN EDGARDO KILGORE Age: 28 years Sex: Female : 1990 [...] to take care of her daughter. Normal [facility] U BetaHcg Qualon 12-15-2018 HCG.beta subunit (U) [Moles/Vol] Negative Normal [facility] Comment on above: Performed By: #### 2 [id number], [id number] #### [facility] [address] [place] [address] UA With Cult Reflexon 2018 Bacteria LM Ql (Urine sed) TRACE Normal Trace [facility] Comment on above: Performed By: #### 2 [id number], [id number] #### [facility] [address] [place] [address] Bilirubin Ql (U) Negative Normal Negative [facility] Comment on above: Performed By: #### 2 [id number], [id number] #### [facility] [address] [place] [address] Clarity (U) CLEAR Normal Clear [facility] Comment on above: Performed By: #### 2 [id number], [id number] #### [facility] [address] [place] [address] Color (U) YELLOW Normal Yellow [facility] Comment on above: Performed By: #### 2 [id number], [id number] #### [facility] [address] [place] [address] Epithelial cells.squamous LM.HPF (Urine sed) [#/Area] 0-2 Normal 0-2 [facility] Comment on above: Performed By: #### 2 [id number], [id number] #### [facility] [address] [place] [address] Glucose Test strip (U) [Mass/Vol] Negative Normal Negative [facility] Comment on above: Performed By: #### 2 [id number], [id number] #### [facility] [address] [place] [address] Hemoglobin Ql (U) Negative Normal Negative [facility] Comment on above: Performed By: #### 2 [id number], [id number] #### [facility] [address] [place] [address] Ketones (U) [Mass/Vol] Negative Normal Negative [facility] Comment on above: Performed By: #### 2 [id number], [id number] #### [facility] [address] [place] [address] [place].plasma/[place] .RBC (Bld) [Mass ratio] 0-3 Normal 0-3 [facility] Comment on above: Performed By: #### 2 [id number], [id number] #### [facility] [address] [place] [address] Nitrite Ql (U) Negative Normal Negative [facility] Comment on above: Performed By: #### 2 [id number], [id number] #### [facility] [address] [place] [address] pH (U) 6.5 [pH] 5.0-9.0 [facility] Comment on above: Performed By: #### 2 [id number], [id number] #### [facility] [address] [place] [address] Protein (U) [Mass/Vol] Negative Normal Negative [facility] Comment on above: Performed By: #### 2 [id number], [id number] #### [facility] [address] [place] [address] Specific gravity (U) [Rel density] 1.010 1.005-1.[address] [facility] Comment on above: Performed By: #### 2 [id number], [id number] #### [facility] [address] [place] [address] UA Spec Desc Clean Catch Normal [facility] Comment on above: Performed By: #### 2 [id number], [id number] #### [facility] [address] [place] [address] Urobilinogen Qn (U) 0.2 {Pamela'U}/dL Normal 0.0-1.0 [facility] Comment on above: Performed By: #### 2 8268739, [id number] #### [facility] [address] [place] [address] WBC Auto Ql (U) Negative Normal Negative [facility] Comment on above: Performed By: #### 2 [id number], [id number] #### [facility] [address] [place] [address] WBC LM.HPF (Urine sed) [#/Area] 0-5 Normal 0-5 [facility] Comment on above: Performed By: #### 2 [id number], [id number] #### [facility] [address] [place] [address] Auto Diffon 12-12-2017 Basophils Auto #/vol (Bld) 0.1 E3/mcL Normal 0.0-0.2 [facility] Comment on above: Order Comment: Order Added by Discern Expert. Performed By: #### 2 [id number] ####[address] [place] [address] Basophils/100 WBC Auto (Bld) 0.9 % Normal 0.0-2.0 [facility] Comment on above: Order Comment: Order Added by Discern Expert. Performed By: #### 2 [id number] ####[address]EN [address] [place] [address] Eos Absolute 0.0 E3/mcL Normal 0.0-0.7 [facility] Comment on above: Order Comment: Order Added by Discern Expert. Performed By: #### 2 [id number] ####[address]EN [address] [place] [address] Eosinophils/100 leukocytes 0.4 % Normal 0.0-11.0 [facility] Comment on above: Order Comment: Order Added by Discern Expert. Performed By: #### 2 [id number] ####KADEN [address] [place] [address] Lymphocytes 1.4 E3/mcL Normal 1.2-3.4 [facility] Comment on above: Order Comment: Order Added by Discern Expert. Performed By: #### 2 [id number] ####KADEN [address] [place] [address] Lymphocytes/100 leukocytes 16.6 % Low 20.0-55.0 [facility] Comment on above: Order Comment: Order Added by Discern Expert. Performed By: #### 2 690695 ####[address] [place] [address] [place] Absolute 0.5 E3/mcL Normal 0.0-0.7 [facility] Comment on above: Order Comment: Order Added by Discern Expert. Performed By: #### 2 [id number] ####[address] [place] [address] Monocytes/100 leukocytes 5.5 % Normal 0.0-10.0 [facility] Comment on above: Order Comment: Order Added by Discern Expert. Performed By: #### 2 [id number] ####[address] [place] [address] Neutro Absolute 6.7 E3/mcL High 1.4-6.5 [facility] Comment on above: Order Comment: Order Added by Discern Expert. Performed By: #### 2 [id number] ####[address] [place] [address] Neutro Auto 76.6 % High 37.0-75.0 [facility] Comment on above: Order Comment: Order Added by Discern Expert. Performed By: #### 2 [id number] ####KADEN [address] [place] [address] CBC w/ Auto Diffon 8 Erythrocyte distribution width Auto Ratio (RBC) 15.0 % High 11.5-14.5 [facility] Comment on above: Performed By: #### 2 500033 ####KADEN [address] [place] [address] Erythrocytes (RBC) 4.94 E6/mcL Normal 3.90-5.40 [facility] Comment on above: Performed By: #### 2 902008 ####KADEN [address] [place] [address] Hematocrit (HCT) 40.0 % Normal 36.0-48.0 [facility] Comment on above: Performed By: #### 2 116594 ####KADEN [address] [place] [address] Hemoglobin mass conc (Bld) 13.0 g/dL Normal 12.0-16.0 [facility] Comment on above: Performed By: #### 2 071254 ####KADEN [address] [place] [address]67005 MCH 26.2 pg Low 27.0-31.0 [facility] Comment on above: Performed By: #### 2 923514 ####KADEN [address] [place] [address]67005 MCHC mass conc (RBC) 32.4 g/dL Low 33.0-37.0 [facility] Comment on above: Performed By: #### 2 725128 ####KADEN [address] [place] [address]67005 MCV 81.0 fL Normal 78.0-100.0 [facility] Comment on above: Performed By: #### 2 766830 ####KADEN [address] [place] [address]67005 Platelet mean volume (PMV) 7.5 fL Normal 7.4-11.0 [facility] Comment on above: Performed By: #### 2 410181 ####KADEN [address] [place] [address] Platelets 347 E3/mcL Normal 130-400 [facility] Comment on above: Performed By: #### 2 315973 ####KADEN [address] [place] [address] WBC (Leukocytes) 8.7 E3/mcL Normal 3.6-11.0 [facility] Comment on above: Performed By: #### 2 659890 ####KADEN [address] [place] [address] CMPon 12-12-2017 Alanine aminotransferase (ALT) 14 Int._Unit/L Normal 10-40 [facility] Comment on above: Performed By: #### 2 835652 ####KADEN [address] [place] [address] Albumin 3.8 g/dL Normal 3.2-5.0 [facility] Comment on above: Performed By: #### 2 276434 ####KADEN [address] [place] [address] Albumin/Globulin Ratio 1.0 {ratio} Low 1.1-1.9 [facility] Comment on above: Performed By: #### 2 629317 ####KADEN [address] [place] [address] Alk Phos 75 Int._Unit/L Normal 42-121 [facility] Comment on above: Performed By: #### 2 602823 ####KADEN [address] [place] [address] Aspartate aminotransferase (AST) 18 Int._Unit/L Normal 10-42 [facility] Comment on above: Performed By: #### 2 331844 ####KADEN [address] [place] [address] Bili Total 1.0 mg/dL Normal 0.2-1.0 [facility] Comment on above: Performed By: #### 2 465482 ####KADEN [address] [place] [address] BUN/Creatinine Ratio 12.5 ratio Normal 5.4-30.0 [facility] Comment on above: Performed By: #### 2 210880 ####KADEN [address] [place] [address] Creatinine 0.8 mg/dL Normal 0.6-1.3 [facility] Comment on above: Performed By: #### 2 256514 ####KADEN [address] [place] [address] Globulin 3.8 g/dL Normal 2.0-4.0 [facility] Comment on above: Performed By: #### 2 526771 ####KADEN [address] [place] [address] Protein 7.6 g/dL Normal 6.4-8.3 [facility] Comment on above: Performed By: #### 2 476935 ####KADEN [address] [place] [address] Urea nitrogen 10 mg/dL Normal 7-18 [facility] Comment on above: Performed By: #### 2 051456 ####KADEN [address] [place] [address] Calcium 9.3 mg/dL Normal 8.4-10.2 [facility] Comment on above: Performed By: #### 2 461400 ####KADEN [address] [place] [address] Chloride 105 mmol/L Normal 98-107 [facility] Comment on above: Performed By: #### 2 553316 ####KADEN [address] [place] [address] CO2 25.1 mmol/L Normal 24.0-30.0 [facility] Comment on above: Performed By: #### 2 368011 ####KADEN [address] [place] [address] Glucose mass conc 101 mg/dL High 70-99 [facility] Comment on above: Performed By: #### 2 509581 ####KADEN [address] [place] [address] Potassium molar conc 3.4 mmol/L Low 3.5-5.1 [facility] Comment on above: Performed By: #### 2 211629 ####KADEN [address] [place] [address] Sodium 140 mmol/L Normal 136-145 [facility] Comment on above: Performed By: #### 2 097117 ####K[address]EN [address] [place] [address] Lipase Levelon 12-12-2017 Lipase Lvl 30 U/L Normal 8-57 [facility] Comment on above: Performed By: #### 2 315388 ####KADEN [address] [place] [address] UA Completeon 12-12-2017 UA Blood 3+ Normal Negative [facility] Comment on above: Performed By: #### 2 690800 ####K[address]EN [address] [place] [address] UA Bacteria Trace Abnormal None [facility] Comment on above: Performed By: #### 2 951144 ####KADEN [address] [place] [address] UA Clarity SltCloudy Abnormal Clear [facility] Comment on above: Performed By: #### 2 972583 ####KADEN [address] [place] [address]67005 UA Hyal Cast 0-2 Normal 0-2 [facility] Comment on above: Performed By: #### 2 780945 ####KADEN [address] [place] [address] UA Leuk Est 3+ Abnormal Negative [facility] Comment on above: Performed By: #### 2 030215 ####KADEN [address] [place] [address] UA Mucous Many Abnormal Trace [facility] Comment on above: Performed By: #### 2 097400 ####KADEN [address] [place] [address] UA Nitrite Negative Normal Negative [facility] Comment on above: Performed By: #### 2 239830 ####KADEN [address] [place] [address] UA pH 5.0 Normal 4.6-8.0 [facility] Comment on above: Performed By: #### 2 847371 ####KADEN [address] [place] [address] UA Protein 1+ Abnormal Negative [facility] Comment on above: Performed By: #### 2 079277 ####KADEN [address] [place] [address] UA Spec Grav 1.026 Normal 1.003-1.03 0 [facility] Comment on above: Performed By: #### 2 538279 ####KADEN [address] [place] [address] UA Squam Epithelial 0-5 Normal 0-5 [facility] Comment on above: Performed By: #### 2 883227 ####KADENMorelia [address] [place] [address] UA Urobilinogen 2.0 mg/dL Abnormal [facility] Comment on above: Performed By: #### 2 405988 ####KADEN [address] [place] [address] UA WBC >50 Abnormal 0-5 [facility] Comment on above: Performed By: #### 2 669782 ####K[address]EN [address] [place] [address] Urine, color Yellow Normal Yellow [facility] Comment on above: Performed By: #### 2 341201 ####KADEN [address] [place] [address] Urine, erythrocytes 20-50 Abnormal 0-3 [facility] Comment on above: Performed By: #### 2 715574 ####KADEN [address] [place] [address] Urine, glucose Negative Normal Negative [facility] Comment on above: Performed By: #### 2 993962 ####KADEN [address] [place] [address] Urine, ketones presence Trace Normal [facility] Comment on above: Performed By: #### 2 624300 ####KADEN [address] [place] [address] Urine, urobilinogen Negative Normal Negative [facility] Comment on above: Performed By: #### 2 165738 ####K[address]EN [address] [place] [address] eGFRon 12-12-2017 eGFR AA >60 Normal [facility] Comment on above: Order Comment: Order Added by Discern Expert. Performed By: #### 2 476438 ####KADEN [address] [place] [address] eGFR (non-black) mL/min/{1.73_m2} Normal [facility] Comment on above: Order Comment: Order Added by Discern Expert. Performed By: #### 2 921103 ####KADEN [address] [place] [address] HISTORY PHYSICALon 8 HISTORY PHYSICAL HNO ID: [id number] thor: Clara Olivia WolfeService: Maternal MedicineAuthor Type: PhysicianType: HANDPFiled: 12/02/2017 9:04 AMNote Text:[facility] DOCUMENTDISCHARGE SUMMARYPatient Name: Zuleika Gtz Date: [...] 4 weeks with provider.Clara Jama, DO Normal [facility] PROGRESSon 12-02-2017 PROGRESS HNO ID: [id number] thor: Marie Lema (Res) LendeService: ObstetricsAuthor Type: [...] with more than 50% of the total xkao-ei-lxkfpwrm of the visit in counseling / coordination [...] decreasing.Ambulating without difficulty.OBJECTIVE:PHYSI GEN EXAM:Heart: RR, S1, K2Atyys: clear to auscultationAbdomen: Soft Bowel sounds present [...] December 02, 2017 : 5:45 AM Normal [facility] SOCIAL WORKon 12-02-2017 SOCIAL WORK HNO ID: [id number] thor: Meredith Ramsay (Sw)vice: Social WorkAuthor Type: Social WorkerType: Social WorkFiled: 12/02/2017 12:25 PMNote Text:SOCIAL WORK CONSULT NOTESERVICE DATE: 12/02/2017SERVICE TIME: 1015Referred by: Jose for visit:Maternal/ - adjustment to conditionLiving Arrangement: HomeLives With: PartnerFinancial Resources: DisabledPrimary Contact:Extended Emergency Contact Information DARRELL BRANCH IIPrashe memorial hospitaladelaida Emergency Contact: No,ContactRelation: OtherSupportive: YesOther Important [...] made her nauseous. Explored pts knowledge of infant care which ptstates she is comfortable being around baby however rely's on FOB andextended family for assistance. Per pt, she and FOB will be staying withFOB parents for unknown amount of time after d/c from hospital. (FOBparents are Anamika Munoz of [address] , [facility]).Per pt and FOB, all needed baby supplies and equipment are at the [facility] and a nursery has been set up.Per pt, name of baby girl is Martha Branch.Pt states she is on SSI and WIC.Pt shares that she is in ongoing counseling at [facility] in [place] and has appointments 2 x per month.Discussed with pt and FOB signs and sx of depression; safe babysleep and discussed ways to deal with crying infant. Pt again states sheis going to rely on her support system.No additional issues identified at this time. Encouraged pt and FOB toutilize services through [facility]. Providedcontact information.Outcome/Recomm endations:[facility] spent (minutes): 60SIGNATURE: CARLA Goncalves PATIENT NAME: Zuleika Hernandez: December 02, 2017 : 11:10 AM PAGER/CONTACT#: Debo [facility] ANES INTRAOPotunde 12-01-2017 ANES INTRAOP HNO ID: [id number] thor: Terrance Lockhartervice: AnesthesiologyAuthor Type: Nurse AnesthetistType: Anesthesia IntraOpFiled: 12/01/2017 9:41 AMNote Text:ANALGESIA PROGRESS RECORDCATHETER REMOVAL/END OF CASESERVICE DATE: 12/01/2017REMOVAL DATE AND TIME: 11/30/2017, 1953DELIVERY DATE AND TIME: 11/30/2017 at 5:49 PMCATHETER REMOVAL:Catheter Removal: [facility] noteSIGNATURE: Terrance Contreras APRN.CRNA PATIENT NAME: Zuleika Hernandez: December 01, 2017 : 9:40 AM PAGER/CONTACT #: Debo [facility] ANES Keke 12-01-2017 ANES POST HNO ID: [id number] thor: Terrance Leblanc) Richyervice: AnesthesiologyAuthor Type: Nurse AnesthetistType: Anesthesia PostOpFiled: 12/01/2017 9:43 AMNote Text:POST ANESTHESIA EVALUATION NOTESERVICE DATE: 12/01/2017SERVICE TIME: 9:42 AMDOB: 1990Vitals: 12/01/1799Temp: 36.7 ?C (98.1 ?F) 36.8 ?C (98.2 ?F) 36.4 ?C (97.5 ?F) 36.4 ?C (97.5?F) 12/01/1799P: 119/55 102/61 107/57 116/72 12/01/17993Pulse: 90 79 65 78 12/01/1799Resp: 20 16 20 16 241 12/01/1819SpO2: 100% 98% 98% 98%Validated Vital Signs: YesPOST ANES STATUS: No apparent anesthetic complications. The patient isappropriately hydrated with stable respiratory and cardiovascular status.Patient has safe and adequate airway control. The patient has appropriatepain relief and no significant post operative nausea or vomiting. Thepatient has achieved baseline mental status.Further assessment by Anesthesia Service: NoneOther Remarks:SIGNATURE: Terrance Contreras APRN.NIGHT BAKER PATIENT NAME: Zuleika LambATE: December 01, 2017 : 9:42 AM PAGER/CONTACT #: Debo [facility] PROGRESSon 12-01-2017 PROGRESS HNO ID: [id number] thor: Marie Lema (Joaquín) LendeService: ObstetricsAuthor Type: ResidentType: Progress NotesFiled: 12/01/2017 6:42 AMNote Text: -------Attestation signed by Oksana Mason at 12/01/2017 8:47 AMPatient seen and examined by me and I agree with the residents assessment andplan. Likely discharge to home/bonding tomorrow.Oksana Amado MD ----OBSTETRICSPOSTPARTUM PROGRESS NOTESERVICE DATE: December 01, 2017SERVICE TIME: 639ASSESSMENT:27 year old female who is Day #1 [...] decreasing.Ambulating without difficulty.OBJECTIVE:PHYSI GEN EXAM:Heart: RR, S1, X7Vmnzb: clear to auscultationAbdomen: Soft Bowel sounds present [...] December 01, 2017 : 6:40 AM Normal [facility] ABO/Rh Confirmationon 2017 ABO group Nom (Bld) A Normal [facility] Comment on above: Performed By: #### A JESSIE #### [place] [address] RH Type Positive Normal [facility] Comment on above: Performed By: #### A JESSIE #### [place] [address] ANES PREOPon 11-30-2017 ANES PREOP HNO ID: [id number] thor: Aaron (Chiara) EarleyService: AnesthesiologyAuthor Type: Nurse [...] of Sleep Apnea: DeniesHematocritDate Value Ref Range Cnqabd2411/30/2017 32.3 (L) 34.1 - 44.9 % Final Platelet CountDate Value Ref Range Otdxwa1811/30/2017 193 182 - 369 thou/cmm Final Vitals: 1 11/30/382694 143BP: 142/75 138/81Pulse: 75 81Resp:Temp: 36.6 ?C [...] needed. Disp: Rfl:Inpatient medications reviewed in [facility].I have interviewed and examined the patient. I have reviewed the medicalrecord , pertinent consults and/or the pre-anesthesia evaluation,pertinent labs, and test results.Significant changes in the patient's condition since the History andPhysical, not otherwise documented in primary service progress notes: [facility] contains updated information obtained within 48 hours ofSurgery/Procedure.SIGNAT URE: Hema Cuellar APRN.CRNA PATIENT NAME: Zuleika LambATE: November 30, 2017 : 12:13 PM : 1990 Normal [facility] Auto Diffon 11-30-2017 Basophils Auto #/vol (Bld) 0.1 E3/mcL Normal 0.0-0.2 [facility] Comment on above: Order Comment: Order Added by Discern Expert. Performed By: #### 2 008092 ####KADEN [address] [place] [address] Basophils/100 WBC Auto (Bld) 0.9 % Normal 0.0-2.0 [facility] Comment on above: Order Comment: Order Added by Discern Expert. Performed By: #### 2 027892 ####KADEN [address] [place] [address] Eos Absolute 0.1 E3/mcL Normal 0.0-0.7 [facility] Comment on above: Order Comment: Order Added by Discern Expert. Performed By: #### 2 246356 ####KADEN [address]Syl[address] [place] [address] Eosinophils/100 leukocytes 1.0 % Normal 0.0-11.0 [facility] Comment on above: Order Comment: Order Added by Discern Expert. Performed By: #### 2 051900 ####KADEN [address]uf[address] [place] [address] Lymphocytes 2.0 E3/mcL Normal 1.2-3.4 [facility] Comment on above: Order Comment: Order Added by Discern Expert. Performed By: #### 2 183464 ####KADEN [address] [place] [address] Lymphocytes/100 leukocytes 22.1 % Normal 20.0-55.0 [facility] Comment on above: Order Comment: Order Added by Discern Expert. Performed By: #### 2 887025 ####KADEN [address]fzl[address] [place] [address] [place] Absolute 0.7 E3/mcL Normal 0.0-0.7 [facility] Comment on above: Order Comment: Order Added by Discern Expert. Performed By: #### 2 713932 ####KADEN [address] [place] [address] Monocytes/100 leukocytes 7.5 % Normal 0.0-10.0 [facility] Comment on above: Order Comment: Order Added by Discern Expert. Performed By: #### 2 535806 ####KADEN [address] [place] [address] Neutro Absolute 6.1 E3/mcL Normal 1.4-6.5 [facility] Comment on above: Order Comment: Order Added by Discern Expert. Performed By: #### 2 399502 ####KADEN [address]Apeg[address] [place] [address] Neutro Auto 68.5 % Normal 37.0-75.0 [facility] Comment on above: Order Comment: Order Added by Discern Expert. Performed By: #### 2 162508 ####KADEN [address] [place] [address] CBC w/ Auto Diffon 8 Erythrocyte distribution width Auto Ratio (RBC) 14.3 % Normal 11.5-14.5 [facility] Comment on above: Performed By: #### 2 654826 ####KADEN [address] [place] [address] Erythrocytes (RBC) 4.34 E6/mcL Normal 3.90-5.40 [facility] Comment on above: Performed By: #### 2 574898 ####KADEN [address] [place] [address] Hematocrit (HCT) 35.1 % Low 36.0-48.0 [facility] Comment on above: Performed By: #### 2 301273 ####KADEN [address] [place] [address] Hemoglobin mass conc (Bld) 11.6 g/dL Low 12.0-16.0 [facility] Comment on above: Performed By: #### 2 436980 ####KADEN [address] [place] [address] MCH 26.6 pg Low 27.0-31.0 [facility] Comment on above: Performed By: #### 2 478549 ####KADEN [address] [place] [address] MCHC mass conc (RBC) 32.9 g/dL Low 33.0-37.0 [facility] Comment on above: Performed By: #### 2 129346 ####KADEN [address] [place] [address] MCV 80.9 fL Normal 78.0-100.0 [facility] Comment on above: Performed By: #### 2 091460 ####KADEN [address] [place] [address] Platelet mean volume (PMV) 7.6 fL Normal 7.4-11.0 [facility] Comment on above: Performed By: #### 2 538547 ####KADEN [address] [place] [address] Platelets 217 E3/mcL Normal 130-400 [facility] Comment on above: Performed By: #### 2 544813 ####KADEN [address] [place] [address] WBC (Leukocytes) 8.8 E3/mcL Normal 3.6-11.0 [facility] Comment on above: Performed By: #### 2 806926 ####KADEN [address] [place] [address] CONSULTon 11-30-2017 CONSULT HNO ID: [id number] thor: Marie Lema (Res) LendeService: ObstetricsAuthor Type: [...] T0 L0 SAB1 TAB0 Ectopic0 Multiple0 Live Ewionn2Okzl of Baby 1: Not recorded Date: 2014 [...] pupils equal, no thyromegalyLungs: clearHeart: RR, S1, C4Nkyfyai: soft, nontender, no massesUterus: soft, NTExtremities: 1+ edemaDTRs: 2+FHT: bpmSt Spec Exam: (not done)CERVICAL EXAM:Dilation: 1 (11/30/1748 : Marie Lema (Res) Sonya) cmStation: -2 [...] Epi prn4. [place]5. [place] [address]. anomalies- prominent cisterna magna, bilateral periventrcularnodular heterotopia, [...] . H/o tobacco abuseSigned out to [facility] for deliveryDr. Amado reviewed with Dr. MaldonadoSIGNATURE: Marie Hassan DO PATIENT NAME: Zuleika LambATE: November 30, 2017 : 6:49 AM PAGER/CONTACT #: [phone] Normal [facility] HISTORY PHYSICALon 8 HISTORY PHYSICAL HNO ID: [id number] thor: Marie Lema (Res) JabiereService: ObstetricsAuthor Type: ResidentType: HANDPFiled: 11/30/2017 7:00 AMNote Text: -------Attestation signed by Oksana Mason at 11/30/2017 9:32 AMPatient seen and examined by me and I agree with the residents assessment andplan.Oksana Amado MD ----OBSTETRICSHISTORY AND PHYSICALSERVICE DATE: November 30, 2017SERVICE TIME: 6:49 AMSubjectivePatient's stated reason for arrival: [place], baby has heart defectsCHIEF COMPLAINT: Rupture of [...] T0 L0 SAB1 TAB0 Ectopic0 Multiple0 Live Kgqauc4Payy of Baby 1: Not recorded Date: 2014 [...] pupils equal, no thyromegalyLungs: clearHeart: RR, S1, G0Byqzscq: soft, nontender, no massesUterus: soft, NTExtremities: 1+ edemaDTRs: 2+FHT: bpmSt Spec Exam: (not done)CERVICAL EXAM:Dilation: 1 (11/30/17 0648 : Marie Lema (Res) Sonya) cmStation: -2 (11/30/17 0648 : Marie Lema (Res) Sonya)Effacement: 60 (11/30/17 0648 : Marie Lema (Giovanni Hassan) %Position:Presentation: Pelvimetry: Pelvimetry clinically assessed as adequateFETAL MONITORING/ASSESSMENT:Base line: 140sVariability: ModerateAccelerations: Acelerations presentDecelerations: AbsentContractions: Rare contractionsFrequency: rareNST Interpretation: IFHR Category:NST Comments:EFW: 6.5 based on clinical assessment.Ultrasound:Posi tion: VertexPlacenta: AnteriorCardiac Motion: PresentAmniotic Fluid: No 2X2 pocket notedDiagnostic tests reviewed for today's visit:Assessment/Plan27 year old EGA:39w0d. Is admitted for augmentation for PROM1. GBS-2. Pit per protocol3. Epi prn4. FB soon5. [place] [address]. anomalies- prominent cisterna magna, bilateral periventrcularnodular heterotopia, [...] EF 55%.10. H/o maternal clubfoot-s/p repair as ygwrgs95. H/o tobacco abuseSigned out to [facility] for deliveryD/w Dr. AmadoSIGNATURE: Marie Hassan DO PATIENT NAME: Zuleika LambATE: November 30, 2017 : 6:49 AM PAGER/CONTACT #: [phone] Normal [facility] Hemogramon 11-30-2017 Erythrocyte distribution width Ratio (RBC) 13.6 % Normal 11.7-14.4 [facility] Comment on above: Performed By: #### C BC1 #### [place] [address] Hematocrit Volume Fraction (Bld) 32.3 % Low 34.1-44.9 [facility] Comment on above: Performed By: #### C BC1 #### [facility] [address] [place] [address] Hemoglobin mass conc (Bld) 10.4 g/dL Low 11.2-15.7 [facility] Comment on above: Performed By: #### C BC1 #### [facility] [address] [place] [address] MCH Entitic mass (RBC) 26.4 pg Normal 25.6-32.2 [facility] Comment on above: Performed By: #### C BC1 #### [facility] [address] [place] [address] MCHC mass conc (RBC) 32.2 % Normal 31.6-34.8 [facility] Comment on above: Performed By: #### C BC1 #### [facility] [address] [place] [address] MCV Entitic volume (RBC) 82.0 fL Normal 79.4-94.8 [facility] Comment on above: Performed By: #### C BC1 #### [facility] [address] [place] [address] Platelet mean volume Entitic volume (Bld) 9.9 fL Normal 9.4-12.3 [facility] Comment on above: Performed By: #### C BC1 #### [facility] [address] [place] [address] Platelets #/vol (Bld) 193 thou/cmm Normal 182-369 A [facility] Comment on above: Performed By: #### C BC1 #### [facility] [address] [place] [address] RBC #/vol (Bld) 3.94 mil/cmm Normal 3.93-5.22 [facility] Comment on above: Performed By: #### C BC1 #### [facility] [address] [place] [address] RDW SD 40.6 fl Normal 36.4-46.3 [facility] Comment on above: Performed By: #### C BC1 #### [place] [address] WBC #/vol (Bld) 9.85 thou/cmm Normal 3.98-10.04 [facility] Comment on above: Performed By: #### C BC1 #### [facility] [address] [place], [place] [address] LD NOTEon 11-30-2017 LD NOTE HNO ID: [id number] thor: Marie Lema (Res) LendeService: ObstetricsAuthor Type: ResidentType: LANDD Delivery NoteFiled: 11/30/2017 6:19 PMNote Text: -------Attestation signed by Serenity Maldonado MD at 12/01/2017 6:04 PMI saw and evaluated the patient. I reviewed the resident's note and agree,except that patient seen by [facility] (patient has FAS, fetus with multipleanomlaies) service, consult placed to [facility] for management of labor AND delivery.Essential primip presented at 39w with PROM, had Pugh balloon AND Pitocin foraugmentaion. Late in labor noted tachycardia that improved with IVFB ANDTylenol (mother rico had elevated temp but felt warm). [facility] to awaiting NICU team for evaluation (was allowed tohave delivery to abdomen AND 30 sec delay for cord clamping). Pushed well AND hadSVD of a viable female infant (APGARS 8,9, weight of 3200g/7#1oz) over intactperineum. Uterus slightly boggy after delivery, responded to massage AND Pitocininfusion, EBL ~500cc.Serenity Maldonado MD ----OBSTETRICSDELIVERY SUMMARY - VAGINAL DELIVERYGestational Age at Delivery: 27b4cGatinbz Date: 11/30/2017Service Time: 1800KeeganBg Zuleika Dillard [[id number]]Labor EventsRupture Date: 11/30/17Rupture Time: 224Rupture Type: PROMFluid [...] 11/30/2017 5:55 PMRemoval: SpontaneousAppearance: IntactAnesthesia:Method: EpiduralMeasurements, Apgars:Code [place] Called: YesType of Code [place] Team Needed: PlannedA digital sweep of the [...] Marie Hassan DO PATIENT NAME: Zuleika Dillard LeidabethnDATE: November 30, 2017 : 6:15 PM [facility] [facility] 11-30-2017 NURSING PROG HNO ID: [id number] thor: Marguerite (Rn) ANEUDY Albarranervice: (none)Author Type: Registered NurseType: Nursing Progress NoteFiled: 11/30/2017 7:06 PMNote Text: INTRODUCED SELF TO PATIENT AND SUPPORT PERSONS. PLAN OF CARE DISCUSSED.ASSESSMENT PERFORMED. PATIENT DENIES COMPLAINTS. Normal [facility] NURSING PROG HNO ID: [id number] thor: Darcie (Rn) ANEUDY Landeroservice: NursingAuthor Type: Registered NurseType: Nursing Progress NoteFiled: 11/30/2017 10:03 AMNote Text:Patient up to shower for comfort. Boyfriend at side. On telemetrymonitors. RN remains in room. FHR difficult to maintain continuoustracing Normal [facility] NURSING PROG HNO ID: [id number] Author: Norah (Rn) KARRI Eastman Service: Nursing Author Type: Registered Nurse Type: Nursing Progress Note Filed: 11/30/2017 7:18 AM Note Text: Report given to Darcie DURAN and care transferred at this time. Normal [facility] PROCEDUREon 11-30-2017 PROCEDURE HNO ID: [id number] thor: Aaron (Bench Shear Operator) EarleyService: AnesthesiologyAuthor Type: Nurse AnesthetistType: ProceduresFiled: [...] Catheter in Epidural Space: 5 cmInterspace: approximately L2-N3Mexjis of Attempts: 1Wet Tap Complication: NoDural Puncture [...] nurses' documentation for additional vitals.SIGNATURE: Hema Cuellar APRN.NIGHT BAKER PATIENT NAME: Zuleika BecerrilnDATE: November 30, 2017 : 12:27 PM PAGER/CONTACT #: [facility] PROGRESSon 11-30-2017 PROGRESS HNO ID: [id number] thor: Marie Lema (Res) JabiereService: ObstetricsAuthor Type: ResidentType: Progress NotesFiled: 11/30/2017 5:04 PMNote Text:UpdatePatient is pushing in the OR. Cat I FHRT with baseline around 160s. updated and in house.Franki Neri 2017 5:04 PM [facility] PROGRESS HNO ID: [id number] Author: Darcie (Rn) KARRI Landeros Service: Nursing Author Type: Registered Nurse Type: Progress Notes Filed: 11/30/2017 3:29 PM Note Text: Patient feeling pressure, cervical exam 9.5 cm. NICU notified. Patient feels warm, but temp 36.9. [facility] PROGRESS HNO ID: [id number] thor: Marie Lema (Res) JabiereService: ObstetricsAuthor Type: ResidentType: Progress NotesFiled: 11/30/2017 1:39 PMNote Text:OBSTETRICSINTRAPARTUM PROGRESS NOTESERVICE DATE: November 30, 2017SERVICE TIME: 1:35 PMSubjectivePatient with no complaints.ObjectiveLAST VITALS:Pulse BP Resp O2 Sat Temp Pain 78 122/63 18 100 % 36.7 ?C (98.1 ?F) 01/24PHYSICAL EXAM:CERVICAL EXAM:Last Exam Notes: Dilation: 5 (11/30/17 1309 : Yolanda (Res) Romina)Effacement (%): 80 (11/30/17 1309 : Yolanda (Res) Romina)Station: -2 (11/30/17 1309 : Yolanda (Res) Barbosa)Presentation: (not recorded)MEMBRANES:Status: Membrane Status: Premature (11/30/17 0853 : Darcie (Karri) Tigre,RN)Rupture Date: 11/30/17 (11/30/17 0853 : Darcie [...] pt comfortable4. s/p FB5. [place] [address]. anomalies- prominent cisterna magna, bilateral periventrcularnodular heterotopia, [...] EF 55%.10. H/o maternal clubfoot-s/p repair as xqpsmi46. H/o tobacco abuse12. Cat II- Isolate late decelerations. Moderate variability. Continuingto make cervical change. Not on Cat II protocol.SIGNATURE: Marie Hassan DO PATIENT NAME: Zuleika BecerrilnDATE: November 30, 2017 : 1:35 PM PAGER/CONTACT #: [phone] Normal [facility] PROGRESS HNO ID: [id number] thor: Yolanda (Res) SnyderService: ObstetricsAuthor Type: ResidentType: [...] Darcie (Rn) Tigre, RN)Additional Findings: NoneFETAL MONITORINGFHT: 145/mod/rare accel/+early decelToco: 1-3 minutesCategory: ILABSDiagnostic tests reviewed for today's visit: No new labsAssessment/Plan27 year old EGA:39w0d. Admitted for AOL PROM1. GBS-2. Pit per protocol3. Epi in- pt comfortable4. s/p [place] [address]. anomalies- prominent cisterna magna, bilateral periventrcularnodular heterotopia, [...] EF 55%.10. H/o maternal clubfoot-s/p repair as gynwyk00. H/o tobacco abuseSIGNATURE: Yolanda Barbosa DO PATIENT NAME: Zuleika LambATE: November 30, 2017 : 1:11 PM PAGER/CONTACT #: [phone] Normal [facility] PROGRESS HNO ID: [id number] thor: Yolanda OchoaerService: ObstetricsAuthor Type: ResidentType: Progress NotesFiled: 11/30/2017 11:07 [...] Pit per protocol3[place] [address]. [place] [address]. anomalies- prominent cisterna magna, bilateral periventrcularnodular heterotopia, [...] EF 55%.10. H/o maternal clubfoot-s/p repair as owtqwr98. H/o tobacco abuseSIGNATURE: Yolanda Barbosa DO PATIENT NAME: Zuleika LambATE: November 30, 2017 : 11:05 AM PAGER/CONTACT #: [phone] [facility] PROGRESS HNO ID: [id number] Author: Darcie (Rn) KARRI Landeros Service: Nursing Author Type: Registered Nurse Type: Progress Notes Filed: 11/30/2017 10:35 AM Note Text: Unable to find labwork for chart. [facility] PROGRESS HNO ID: [id number] thor: Marie Lema (Res) LendeService: ObstetricsAuthor Type: [...] Date: 11/30/17 (11/30/17 0853 : Darcie [place]) KARRI Landeros)Rupture Time: 022 (11/30/17 0853 : Darcie (Karri) KARRI Landeros)Amniotic Fluid Color: Clear (11/30/17 0853 : Darcie [place]) KARRI Landeros)Additional Findings: NoneFETAL MONITORINGFHT: 135s Moderate/acelerations present/decelerations absentToco: 2-4 minutesCategory: ILABSDiagnostic tests reviewed for today's visit: Most recent labs and imagingresults.Assessment/ Plan27 year old EGA:39w0d. Admitted for augmentation for PROM1. GBS-2. Pit per protocol3[place] [address]. [place] [address]. anomalies- prominent cisterna magna, bilateral periventrcularnodular heterotopia, [...] EF 55%.10. H/o maternal clubfoot-s/p repair as qamjrq81. H/o tobacco abuse?SIGNATURE: Marie Hassan DO PATIENT NAME: Zuleika LambATE: November 30, 2017 : 10:31 AM PAGER/CONTACT #: [phone] Normal [facility] PROGRESS HNO ID: [id number] thor: Darcie [place]) ANEUDY Landeroservice: NursingAuthor Type: Registered NurseType: Progress NotesFiled: 11/30/2017 10:13 AMNote Text:Patient remains in shower. RN and boyfriend at side. EFM on telemetryand adjusted while patient in shower. Difficult to keep baby on. Normal [facility] PROGRESS HNO ID: [id number] thor: Yolanda (Res) SnyderService: ObstetricsAuthor Type: ResidentType: Progress NotesFiled: 11/30/2017 7:35 AMNote Text:In to place FB. Pt tolerated procedure well. Continues to leak clearfluid. Pt uncomfortable with contractions.Cat I FHT, reactive with accelsToco: 2-5 minsHeather Romina, PGY-1Obstetrics and GynecologyPager [phone]/7:34 AM Normal [facility] Type and Screenon 11-30-2017 ABO group Nom (Bld) A Normal [facility] Comment on above: Performed By: #### T &S #### [place] [address] Comment See Below [facility] Comment on above: Result Comment: Scre en &/or Xmatch expires in 3 days at 12 midnight. Redraw patient at that time. Performed By: #### T &S #### [place] [address] RH Type Positive Normal [facility] Comment on above: Performed By: #### T &S #### [place] [address] Progress Noteon 11-28-2017 Transportation Modeler Authentication Interface Message Text Routine VisitSubjective: Zuleika Villalta is being seen today for her obstetrical visit. She is at 00a4imqdouapcy. Patient reports no complaints. Movement: normal. She [...] [facility]. Supervision of other high risk , antepartum 10/08/2017 PLAN OF CAREMD/OB APPOINTMENTSHow often should patient be evaluated? q 2 weeks from 32 to 36 weeks thenweekly until deliveryWork restrictions: noneFETAL EVALUATIONAntenatal surveillance: weekly BPPs starting at 32 weeks.Ultrasound: Serial growth ultrasounds every 4 weeks.DELIVERY PLANHospital: [facility]Induction at 39 weeks; CYTOTEC IOL 12-02-17 at 5 pm at [facility]. Pre-Procedure formdone (CG)GBS culture: neg 11/07/17Contraception: [...] [facility] Progress Noteon 11-22-2017 Transportation Modeler Authentication Interface Message Text FTC plan of care faxed to [facility] in event pt would arrive for urgent management. Normal [facility] Progress Noteon 11-21-2017 Transportation Modeler Authentication Interface Message Text Routine VisitSubjective: Zuleika Villalta is being seen today for her obstetrical visit. She is at [id number]. Patient reports that she went to [facility] last night due toconcerns for labor. She [...] Serial growth ultrasounds every 4 weeks.DELIVERY PLANHospital: [facility] HospitalInduction at 39 weeks; CYTOTEC IOL 6-18-18 at 5 pm at [facility]. Pre-Procedure formdone (CG)GBS culture: neg 11/07/17Contraception: [...] [facility] Progress Noteon 11-12-2017 Transportation Modeler Authentication Interface Message Text Call from [facility] that pt presented there in labor. [facility] plan of care and ACOGs faxed by [...] Comment on above: Performed By: #### G [facility] ####[address] [phone] Progress Noteon 11-07-2017 Transportation Modeler Authentication Interface Message Text Routine VisitSubjective: Zuleika Villalta is being seen today for her obstetrical visit. She is at 78c6oarixaaihf. Patient reports occasional nausea. No emesis. She [...] Serial growth ultrasounds every 4 weeks.DELIVERY PLANHospital: [facility] HospitalInduction at 39 weeksGBS culture: collected and [...] OB visit and BPP.Oksana Amado MD Normal [facility] Progress Noteon 10-24-2017 Transportation Modeler Authentication Interface Message Text Routine VisitSubjective: Zuleika [...] Serial growth ultrasounds every 4 weeks.DELIVERY PLANHospital: [facility] HospitalInduction at 39 weeksGBS culture:Contraception: Considering LARC [...] and coordinating care.Marco Antonio Antonio DO Normal [facility] Progress Noteon 10-15-2017 Transportation Modeler Authentication Interface Message Text Ped selection made. Updated prenatals Normal [facility] Progress Noteon 10-08-2017 Transportation Modeler Authentication Interface Message Text Thank you for [...] size. There was a patent foramen ovale, oyazcfjxv-wr-kwrl shunt.Tricuspid valve:Normal tricuspid valve. There was normal [...] fetuses and in fetuses with CHD and uhfxsxjjpuftw57z06, the ratio being below 0.3 )Impression and recommendations.1) Abnormal 3-vessel view, ascending aorta was moderately dilated. 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 thymic thoracic ratio (TT-ratio)=0.1 ( TT-ratio 0.44 in normal fetuses and in fetuses with CHD and qglesziitbjjn75n52, the ratio being below 0.3 )5) Normal [...] the encounter. Normal [facility] Transportation Modeler Authentication Interface Message Text Initial VisitSubjective: Zuleika [...] Serial growth ultrasounds every 4 weeks.DELIVERY PLANHospital: [facility] HospitalInduction at 39 weeksGBS culture:Contraception:TDAP recommended Constipation [...] weeks for OB visit and BPP in [place].Oksana Amado MD Normal [facility] Cytogenomic Microarray Nivia sis of Bloodon 09-10-2017 Cytogenomic Microarray Analysis of Blood SEE BELOW Normal [facility] Comment on above: Result Comment: SPEC IMEN: BLOODCLINICAL INFORMATION: Learning disability[F81.9]TEST: CYTOGENOMIC MICROARRAY ANALYSISRESULT SUMMARY:Normal femaleNOMENCLATURE:arr(1-22,X)p4NOJWWZJMIYMINC & COMMENTS:The cytogenomics microarray analysis indicated no [...] whole genome microarray analysis was performed the FDA-clearedFitVia(RTalkyLand platform, which contains approximately 2.7million markers, including 1,953,246 unique non-polymorphic copy numberprobes and 743,304 single nucleotide polymorphism (SNP) probes. Thegenome-wide functional resolution of this assay is approximately 25 kbfor deletions and 50 kb for duplications. This microarray andassociated software (Chromosome Analysis Suite Dx) were manufactured byAffymetrix and used by the Cytogenetics and Molecular [...] further information regarding intendeduse and limitations, see [email or web address].Note: The Cytogenetics Laboratory has this patient's blood [...] for additional testing. 09/19/2017 BIGG GARCIA, PH.D., [facility], [facility] 09/19/2017 Performed By: #### M [facility] ####[facility] [place], [place] [phone] MRI (SINGLE)on 018 MRI (SINGLE) MRI (SINGLE)CL [...] [facility] Progress Noteon 09-10-2017 Transportation Modeler Authentication Interface Message Text The total patient time of the visit was 15 minutes, of which greater than 50% of the time was spent counseling and coordinating care. Normal [facility] Auto Diffon 09-03-2017 Basophils Auto #/vol (Bld) 0.1 E3/mcL Normal 0.0-0.2 [facility] Comment on above: Order Comment: Order Added by Discern Expert. Performed By: #### 2 [id number] ####KADEN [address] [place] [address] Basophils/100 WBC Auto (Bld) 0.5 % Normal 0.0-2.0 [facility] Comment on above: Order Comment: Order Added by Discern Expert. Performed By: #### 2 648107 ####KADEN [address] [place] [address] Eos Absolute 0.0 E3/mcL Normal 0.0-0.7 [facility] Comment on above: Order Comment: Order Added by Discern Expert. Performed By: #### 2 877026 ####KAD[address] [place] [address] Eosinophils/100 leukocytes 0.4 % Normal 0.0-11.0 [facility] Comment on above: Order Comment: Order Added by Discern Expert. Performed By: #### 2 [id number] ####K[address] [place] [address] Lymphocytes 1.3 E3/mcL Normal 1.2-3.4 [facility] Comment on above: Order Comment: Order Added by Discern Expert. Performed By: #### 2 494308 ####KADEN [address] [place] [address] Lymphocytes/100 leukocytes 13.1 % Low 20.0-55.0 [facility] Comment on above: Order Comment: Order Added by Discern Expert. Performed By: #### 2 309492 ####KAD[address] [place] [address] [place] Absolute 0.4 E3/mcL Normal 0.0-0.7 [facility] Comment on above: Order Comment: Order Added by Discern Expert. Performed By: #### 2 686390 ####KADEN [address] [place] [address] Monocytes/100 leukocytes 4.3 % Normal 0.0-10.0 [facility] Comment on above: Order Comment: Order Added by Discern Expert. Performed By: #### 2 645250 ####KADEN [address] [place] [address] Neutro Absolute 8.4 E3/mcL High 1.4-6.5 [facility] Comment on above: Order Comment: Order Added by Discern Expert. Performed By: #### 2 735922 ####KADEN [address] [place] [address] Neutro Auto 81.7 % High 37.0-75.0 [facility] Comment on above: Order Comment: Order Added by Discern Expert. Performed By: #### 2 675307 ####KADEN [address] [place] [address] CBC w/ Auto Diffon 8 Erythrocyte distribution width Auto Ratio (RBC) 13.1 % Normal 11.5-14.5 [facility] Comment on above: Performed By: #### 2 495424 ####KADEN [address] [place] [address] Erythrocytes (RBC) 3.90 E6/mcL Normal 3.90-5.40 [facility] Comment on above: Performed By: #### 2 089649 ####KADEN [address] [place] [address] Hematocrit (HCT) 34.7 % Low 36.0-48.0 [facility] Comment on above: Performed By: #### 2 193947 ####KADEN [address] [place] [address] Hemoglobin mass conc (Bld) 11.8 g/dL Low 12.0-16.0 [facility] Comment on above: Performed By: #### 2 924973 ####KADEN [address] [place] [address] MCH 30.3 pg Normal 27.0-31.0 [facility] Comment on above: Performed By: #### 2 166210 ####KADEN [address] [place] [id number] MCHC mass conc (RBC) 34.2 g/dL Normal 33.0-37.0 [facility] Comment on above: Performed By: #### 2 697000 ####KADEN [address] [place] [address] MCV 88.8 fL Normal 78.0-100.0 [facility] Comment on above: Performed By: #### 2 902899 ####KADEN [address] [place] [address] Platelet mean volume (PMV) 7.3 fL Low 7.4-11.0 [facility] Comment on above: Performed By: #### 2 270456 ####KADEN [address] [place] [address] Platelets 218 E3/mcL Normal 130-400 [facility] Comment on above: Performed By: #### 2 510765 ####K[address]EN [address] [place] [address] WBC (Leukocytes) 10.2 E3/mcL Normal 3.6-11.0 [facility] Comment on above: Performed By: #### 2 665139 ####K[address]EN [address] [place] [address] Gest Scr Glu 1 Hron 09-04-19 18 Glucose mass conc 113 mg/dL Normal 70-140 [facility] Comment on above: Performed By: #### 2 903071 ####K[address] [place] [address] FISH Probeon 08-13-2017 Protein mass conc SEE BELOW Normal [facility] Comment on above: Result Comment: SPEC IMEN: BLOOD - [id number] INFORMATION:TEST: FISH Analysis of the DiGeorge/VCFS Region [...] Metaphase images: 2The Vysis LSI DARREN Spectrum Cataño Probe contains the DARREN gene (3'non-coding region of TUPLE1, M07B247, and [id number]. The Vysis LSI ARSAspectrum Green Probe includes [...] J Med Barbara 66:250-256,1995. BIGG GARCIA, PH.D., 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 Pt plans to deliver in [place] with [facility]. Currently with Dr. Shekhar Dyson.[employer] is undecided. [facility] provided and discussed importance ofselection [...] was spent counseling and coordinating care. Normal [facility] Transportation Modeler Authentication Interface Message Text Thank you for [...] size. There was a patent foramen ovale, dbnwirqzm-up-slmo shunt.Tricuspid valve:Normal tricuspid valve. There was normal [...] [facility] Progress Noteon 07-18-2017 Transportation Modeler Authentication Interface Message Text [facility] MATERNAL- MEDICINE CONSULTReferring/Requestin g Provider: VINI [...] no palpitations. She usually doesnot see a residential interior designer, but did have a recent echo due [...] Stroke Maternal Grandmother Heart Disease Maternal Grandmother VA Clotting Disorder Maternal Grandfather Miscarriages / Stillbirths [...] a child 07/18/2017 Consider evaluation with social insurance adviser to assess for any needs duringpregnancy or after. Will have genetic consult with [facility] evaluation. cardiac anomaly complicating , antepartum 07/18/2017 Dilated aortic root seen on ultrasound along with large umbilical cordvarix, dolichocephaly DW Dr. Zazueta, verbal order to refer to [facility] Will be scheduled with pediatric cardiology. Also, patient and family members have a history of learning disabilities,including an individual learning plan in school. She will talk to her familymembers and bring as much information as is available for her genetics consult.She has transportation to [place] and is willing [facility].The total patient time of the visit was 30 minutes, of which was greater than50% of the time was spent counseling and coordinating care. Normal [facility] IGP W/hpv Rfx [id number] 05-07 Diagnosis: See Ref Lab Report Normal [facility] Comment on above: Order Comment: Thin Prep. Performed By: #### 2 [id number] ####KADEN [address] [place] [address] C Urineon 05-03-2017 C Urine Final Report: Normal skin alonso isolated Normal [facility] Comment on above: Performed By: #### 2 847970 ####KADEN [address] [place] [address] RPRon 05-03-2017 RPR Ql Non-Reactive Normal Non-Reacti ve [facility] Comment on above: Performed By: #### 2 156083 ####KADEN [address] [place] [address] Hep Bs Agon 05-02-2017 BSA (Body Surface Area) Negative Normal Negative [facility] Comment on above: Result Comment: Perf ormed At: CB [facility] [address] [place], [place] [id number] Vincent PhD Ph:[phone] Performed By: #### 2 781500 ####KADEN [address] [place] [address] ABO/Rh Echoon 05-01-2017 ABO/Rh E Interp... Positive Normal [facility] Comment on above: Performed By: #### 2 979753 ####KADEN [address] [place] [address] Antibody Screen Cap...on Screen Interp... Negative Normal [facility] Comment on above: Performed By: #### 2 170554 ####KADEN [address] [place] [address] Auto Diffon 05-01-2017 Basophils Auto #/vol (Bld) 0.0 E3/mcL Normal 0.0-0.2 [facility] Comment on above: Order Comment: Order Added by Discern Expert. Performed By: #### 2 141150 ####KADEN Urinalysis Manual [address] [place] [address] Basophils/100 WBC Auto (Bld) 0.4 % Normal 0.0-2.0 [facility] Comment on above: Order Comment: Order Added by Discern Expert. Performed By: #### 2 063634 ####KADEN Urinalysis Manual [address] [place] [address] Eos Absolute 0.1 E3/mcL Normal 0.0-0.7 [facility] Comment on above: Order Comment: Order Added by Anamaria Expert. Performed By: #### 2 334150 ####KADEN Urinalysis Manual [address] [place] [address] Eosinophils/100 leukocytes 0.7 % Normal 0.0-11.0 [facility] Comment on above: Order Comment: Order Added by Anamaria Expert. Performed By: #### 2 351703 ####KADEN Urinalysis Manual [address] [place] [address] Lymphocytes 1.8 E3/mcL Normal 1.2-3.4 [facility] Comment on above: Order Comment: Order Added by Anamaria Expert. Performed By: #### 2 579267 ####KADEN Urinalysis Manual [address] [place] [address] Lymphocytes/100 leukocytes 17.1 % Low 20.0-55.0 [facility] Comment on above: Order Comment: Order Added by Anamaria Expert. Performed By: #### 2 711526 ####KADEN Urinalysis Manual [address] [place] [address] [place] Absolute 0.5 E3/mcL Normal 0.0-0.7 [facility] Comment on above: Order Comment: Order Added by Discern Expert. Performed By: #### 2 223180 ####KADEN Urinalysis Manual [address] [place] [address] Monocytes/100 leukocytes 5.0 % Normal 0.0-10.0 [facility] Comment on above: Order Comment: Order Added by Discern Expert. Performed By: #### 2 923471 ####KADEN Urinalysis Manual [address] [place] [address] Neutro Absolute 8.0 E3/mcL High 1.4-6.5 [facility] Comment on above: Order Comment: Order Added by Discern Expert. Performed By: #### 2 185511 ####KADEN Urinalysis Manual [address] [place] [address] Neutro Auto 76.8 % High 37.0-75.0 [facility] Comment on above: Order Comment: Order Added by Discern Expert. Performed By: #### 2 044570 ####KADEN Urinalysis Manual [address] [place] [address] CBC w/ Auto Diffon 7 Erythrocyte distribution width Auto Ratio (RBC) 15.2 % High 11.5-14.5 [facility] Comment on above: Performed By: #### 2 304828 ####KADEN Urinalysis Manual [address] [place] [address] Erythrocytes (RBC) 4.90 E6/mcL Normal 3.90-5.40 [facility] Comment on above: Performed By: #### 2 445185 ####KADEN Urinalysis Manual [address] [place] [address] Hematocrit (HCT) 41.1 % Normal 36.0-48.0 [facility] Comment on above: Performed By: #### 2 228704 ####KADEN Urinalysis Manual [address] [place] [address] Hemoglobin mass conc (Bld) 13.5 g/dL Normal 12.0-16.0 [facility] Comment on above: Performed By: #### 2 [id number] ####KADEN Urinalysis Manual [address] [place] [address] MCH 27.5 pg Normal 27.0-31.0 [facility] Comment on above: Performed By: #### 2 335980 ####KADEN Urinalysis Manual Ejwsrlhfym[address] [place], [place] [id number] MCHC mass conc (RBC) 32.8 g/dL Low 33.0-37.0 [facility] Comment on above: Performed By: #### 2 514955 ####KADEN Urinalysis Manual Jkunruotgp23[address] [place] [address] MCV 83.9 fL Normal 78.0-100.0 [facility] Comment on above: Performed By: #### 2 165945 ####KADEN Urinalysis Manual Mvimfavxaz4358[address] [place] [address] Platelet mean volume (PMV) 8.0 fL Normal 7.4-11.0 [facility] Comment on above: Performed By: #### 2 259704 ####KADEN Urinalysis Manual Yaenzskwyy2030[address] [place] [address] Platelets 246 E3/mcL Normal 130-400 [facility] Comment on above: Performed By: #### 2 963063 ####KADEN Urinalysis Manual Wpsmllbhrq6584[address] [place] [address] WBC (Leukocytes) 10.4 E3/mcL Normal 3.6-11.0 [facility] Comment on above: Performed By: #### 2 904858 ####KADEN Urinalysis Manual Calhtfjqhw[address]44[address] [place] [address] Chlamydia GC by PCRon 2016 Chlamydia by PCR. Not Detected Normal Not Detected [facility] Comment on above: Result Comment: Xper t CT/NG Assay performance has not been evaluated in patients less than 14 years of age. Performed By: #### 2 117519 ####KADEN KqlVhyv7276 [place] [id number] Gonorrhoeae by PCR Not Detected Normal Not Detected [facility] Comment on above: Result Comment: Xper t CT/NG Assay performance has not been evaluated in patients less than 14 years of age. Performed By: #### 2 177096 ####KADEN UegItge0577 [place] 5567005 HIV-1/2 Ag/Abon 05-01-2017 HIV-1/2 Ag/Ab Non-Reactive Normal Non-Reacti ve [facility] Comment on above: Performed By: #### 2 225997 ####KADEN [place] [address] Rubella IgG Lvlon 05-01-2017 Rubella IgG Lvl 50.8 (POS) Normal [facility] Comment on above: Result Comment: <10I U/ml NON REACTIVE: NOT [id number] IU/ml RUBELLA SPECIFIC AB PRESENT, EVALUATEFURTHER TO DETERMINE IMMUNE STATUS >15 IU/ml REACTIVE, IMMUNE Performed By: #### 2 214700 ####KADEN EbnCjvp9144 [place] [address] Auto Diffon 04-22-2017 Basophils Auto #/vol (Bld) 0.1 E3/mcL Normal 0.0-0.2 [facility] Comment on above: Order Comment: Order Added by Discern Expert. Performed By: #### 2 773677 ####KADEN Urinalysis Manual Nqryukyvcd5[address] [place] [address] Basophils/100 WBC Auto (Bld) 0.6 % Normal 0.0-2.0 [facility] Comment on above: Order Comment: Order Added by Discern Expert. Performed By: #### 2 767018 ####KADEN [place] [address] Eos Absolute 0.0 E3/mcL Normal 0.0-0.7 [facility] Comment on above: Order Comment: Order Added by Discern Expert. Performed By: #### 2 328894 ####KADEN Urinalysis Manual Lbpyscudzn1683[address] [place] [address] Eosinophils/100 leukocytes 0.2 % Normal 0.0-11.0 [facility] Comment on above: Order Comment: Order Added by Discern Expert. Performed By: #### 2 192625 ####KADEN Urinalysis Manual Htnfypqmzx2153[address] [place] [address] Lymphocytes 1.5 E3/mcL Normal 1.2-3.4 [facility] Comment on above: Order Comment: Order Added by Discern Expert. Performed By: #### 2 064133 ####KADEN Urinalysis Manual Xgpohiyuhl[address] [place] [address] Lymphocytes/100 leukocytes 10.8 % Low 20.0-55.0 [facility] Comment on above: Order Comment: Order Added by Discern Expert. Performed By: #### 2 839690 ####KADEN Urinalysis Manual Lsobodsxzx7201[address] [place] [address] [place] Absolute 0.6 E3/mcL Normal 0.0-0.7 [facility] Comment on above: Order Comment: Order Added by Discern Expert. Performed By: #### 2 892929 ####KADEN Urinalysis Manual Ltescfrtgw9125[address] [place] [address] Monocytes/100 leukocytes 4.4 % Normal 0.0-10.0 [facility] Comment on above: Order Comment: Order Added by Discern Expert. Performed By: #### 2 178558 ####KADEN Urinalysis Manual Cljchywgwr7073[address] [place] [address] Neutro Absolute 11.3 E3/mcL High 1.4-6.5 [facility] Comment on above: Order Comment: Order Added by Discern Expert. Performed By: #### 2 820005 ####KADEN Urinalysis Manual Ewwmfqjhcr7686[address] [place] [address] Neutro Auto 84.0 % High 37.0-75.0 [facility] Comment on above: Order Comment: Order Added by Discern Expert. Performed By: #### 2 433521 ####KADEN Urinalysis Manual Hpgrtompaw[address] [place] [address] BMPon 04-22-2017 BUN/Creatinine Ratio Unable to calc Normal 5.4-30.0 [facility] Comment on above: Performed By: #### 2 757172 ####KADEN Urinalysis Manual Vldhshfjee1794[address] [place] [address] Creatinine mg/dL Low 0.6-1.3 [facility] Comment on above: Performed By: #### 2 378578 ####KADEN Urinalysis Manual Qtresqiqro1665[address] [place] [address] Urea nitrogen 7 mg/dL Normal 7-18 [facility] Comment on above: Performed By: #### 2 468723 ####KADEN Urinalysis Manual Trudppmzgv6160 [place] [address] Calcium 9.6 mg/dL Normal 8.4-10.2 [facility] Comment on above: Performed By: #### 2 233803 ####KADEN Urinalysis Manual Gprayjubbf4667 [place] [address] Chloride 103 mmol/L Normal 98-107 [facility] Comment on above: Performed By: #### 2 973791 ####KADEN Urinalysis Manual Trdjwckmkz0848 [place] [address] CO2 21.7 mmol/L Low 24.0-30.0 [facility] Comment on above: Performed By: #### 2 537756 ####KADEN Urinalysis Manual Jfisrxswox94[address] [place] [address] Glucose mass conc 89 mg/dL Normal 70-99 [facility] Comment on above: Performed By: #### 2 922200 ####KADEN Urinalysis Manual Ytufvpsmmz8[address] [place] [address] Potassium molar conc 3.6 mmol/L Normal 3.5-5.1 [facility] Comment on above: Performed By: #### 2 169011 ####KADEN Urinalysis Manual Zqszprosxp5198[address] [place] [address] Sodium 136 mmol/L Normal 136-145 [facility] Comment on above: Performed By: #### 2 294882 ####KADEN Urinalysis Manual Vuijesmgzq424[address] [place] [address] CBC w/ Auto Diffon 7 Erythrocyte distribution width Auto Ratio (RBC) 14.8 % High 11.5-14.5 [facility] Comment on above: Performed By: #### 2 163778 ####KADEN Urinalysis Manual Fnorteyhpd4515[address] [place] [address] Erythrocytes (RBC) 4.96 E6/mcL Normal 3.90-5.40 [facility] Comment on above: Performed By: #### 2 453184 ####KADEN Urinalysis Manual Kwrwgiswyq6425[address] [place] [address] Hematocrit (HCT) 40.9 % Normal 36.0-48.0 [facility] Comment on above: Performed By: #### 2 254262 ####KADEN Urinalysis Manual Yukqaurzrv526[address] [place] [address] Hemoglobin mass conc (Bld) 13.5 g/dL Normal 12.0-16.0 [facility] Comment on above: Performed By: #### 2 198754 ####KADEN Urinalysis Manual Nvezelxbcc05[address] [place] [address] MCH 27.2 pg Normal 27.0-31.0 [facility] Comment on above: Performed By: #### 2 389493 ####KADEN Urinalysis Manual Pszylkmkvk7[address] [place] [address] MCHC mass conc (RBC) 33.0 g/dL Normal 33.0-37.0 [facility] Comment on above: Performed By: #### 2 965870 ####KADEN Urinalysis Manual Cvvupqvgwg7166[address] [place] [address] MCV 82.4 fL Normal 78.0-100.0 [facility] Comment on above: Performed By: #### 2 855045 ####KADEN Urinalysis Manual Oxpxfgugbu4940[address] [place] [address] Platelet mean volume (PMV) 8.0 fL Normal 7.4-11.0 [facility] Comment on above: Performed By: #### 2 490320 ####KADEN Urinalysis Manual Tjhushukrt4552[address] [place] [address] Platelets 237 E3/mcL Normal 130-400 [facility] Comment on above: Performed By: #### 2 638286 ####KADEN Urinalysis Manual Zwgspcjojm4860[address] [place] [address] WBC (Leukocytes) 13.5 E3/mcL High 3.6-11.0 [facility] Comment on above: Performed By: #### 2 709067 ####KADEN Urinalysis Manual Bwgnnbcmza38[address] [place] [address] UA Completeon 04-22-2017 UA Blood Negative Normal Negative [facility] Comment on above: Performed By: #### 2 392347 ####KADEN Urinalysis Manual Mpvxgufyay7404 [place] [address] UA Ascorbic Acid 40 mg/dL High <=19 [facility] Comment on above: Performed By: #### 2 316862 ####KADEN Urinalysis Manual Zdqmnlsxkq[address] [place] [address] UA Bacteria 3+ /HPF Abnormal None [facility] Comment on above: Performed By: #### 2 541350 ####KADEN Urinalysis Manual Objoycdgbj3822[address] [place] [address] UA Clarity SltCloudy Abnormal Clear [facility] Comment on above: Performed By: #### 2 181821 ####KADEN Urinalysis Manual Ypwwqbmvej5[address] [place] [address] UA Leuk Est Negative Normal Negative [facility] Comment on above: Performed By: #### 2 918576 ####KADEN Urinalysis Manual Llujqreykq7101[address] [place] [address] UA Mucous Few Abnormal Trace [facility] Comment on above: Performed By: #### 2 229828 ####KADEN Urinalysis Manual Bv[address]ftcwsn[address] [place] [address] UA Nitrite Negative Normal Negative [facility] Comment on above: Performed By: #### 2 442230 ####KADEN Urinalysis Manual Ywaoembnwh9618[address] [place] [address] UA pH 8.0 Normal 4.6-8.0 [facility] Comment on above: Performed By: #### 2 539667 ####KADEN Urinalysis Manual Mhlaebplpv5934[address] [place] [address] UA Protein Negative Normal Negative [facility] Comment on above: Performed By: #### 2 277371 ####KADEN Urinalysis Manual Lrxzmponby9864[address] [place] [address] UA Spec Grav 1.012 Normal 1.003-1.03 0 [facility] Comment on above: Performed By: #### 2 668777 ####KADEN Urinalysis Manual Xqzwemcsdd5059[address] [place] [address] UA Squam Epithelial 0-5 Normal 0-5 [facility] Comment on above: Performed By: #### 2 940272 ####KADEN Urinalysis Manual Wddkphtygk5729 [place] [address] UA Urobilinogen Negative Normal [facility] Comment on above: Performed By: #### 2 062788 ####KADEN Urinalysis Manual Bwcrjwutcm2594 [place] [address] UA WBC 0-5 Normal 0-5 [facility] Comment on above: Performed By: #### 2 929209 ####KADEN Urinalysis Manual Qcdpvrnuzl3589 [place] [address] Urine, color Yellow Normal Yellow [facility] Comment on above: Performed By: #### 2 734462 ####KADEN Urinalysis Manual Gwxnbqfelm[address] [place] [address] Urine, glucose Negative Normal Negative [facility] Comment on above: Performed By: #### 2 542049 ####KADEN Urinalysis Manual Itvqgmfeit[address] [place] [address] Urine, ketones presence 1+ Abnormal Negative [facility] Comment on above: Performed By: #### 2 036426 ####KADEN Urinalysis Manual [address]zlfdjpp[address] [place] [address] Urine, urobilinogen Negative Normal Negative [facility] Comment on above: Performed By: #### 2 204247 ####KADEN Urinalysis Manual Ntnxehstzm6684 [place] [address] eGFRon 04-22-2017 eGFR AA >60 Normal [facility] Comment on above: Order Comment: Order added by Discern Expert. Performed By: #### 2 876495 ####KADEN Urinalysis Manual Cxdvkrmget1376 [place] [address] eGFR (non-black) mL/min/{1.73_m2} Normal [facility] Comment on above: Order Comment: Order added by Discern Expert. Performed By: #### 2 428935 ####KADEN Urinalysis Manual Wskoxxsaxb8956 [place] [address] C Urineon 04-20-2017 C Urine Final Report: Normal skin alonso isolated Normal [facility] Comment on above: Performed By: #### 2 708618 ####KADEN Urinalysis Manual Thtjdgjiqa6664 [place] [address] BMPon 04-18-2017 BUN/Creatinine Ratio 15.0 ratio Normal 5.4-30.0 [facility] Comment on above: Performed By: #### 2 413072 ####KADENMorelia BairdLlsBlga2021 [place] [address] Creatinine 0.6 mg/dL Normal 0.6-1.3 [facility] Comment on above: Performed By: #### 2 420170 ####KADEN BairdKkfBpfi4143 [place] [address] Urea nitrogen 9 mg/dL Normal 7-18 [facility] Comment on above: Performed By: #### 2 091669 ####KADEN BairdDyiItfj9362 [place] [address] Calcium 9.6 mg/dL Normal 8.4-10.2 [facility] Comment on above: Performed By: #### 2 449771 ####KADEN BairdFpkVylj4172 [place] [address] Chloride 102 mmol/L Normal 98-107 [facility] Comment on above: Performed By: #### 2 697375 ####KADENMorelia BairdSzgQcto8562 [place] [address] CO2 23.3 mmol/L Low 24.0-30.0 [facility] Comment on above: Performed By: #### 2 696712 ####KADEN BairdNbcHqpl7076 [place] [address] Glucose mass conc 93 mg/dL Normal 70-99 [facility] Comment on above: Performed By: #### 2 647166 ####KADENMorelia BairdYwrPmwf2718 [place] [address] Potassium molar conc 3.5 mmol/L Normal 3.5-5.1 [facility] Comment on above: Performed By: #### 2 322945 ####KADEN BairdHujUkti8307 [place] [address] Sodium 136 mmol/L Normal 136-145 [facility] Comment on above: Performed By: #### 2 192812 ####KADEN BpzKkxq1435 [place] [address] UA Completeon 04-18-2017 UA Blood Negative Normal Negative [facility] Comment on above: Performed By: #### 2 239273 ####KADEN Urinalysis Manual Jjqhpfnjdh[address] [place] [address] UA Amorph Chastity 2+ /HPF Abnormal None [facility] Comment on above: Performed By: #### 2 855426 ####KADEN Urinalysis Manual Bmxougvjvr[address] [place] [address] UA Ascorbic Acid 40 mg/dL High <=19 [facility] Comment on above: Performed By: #### 2 944284 ####KADEN Urinalysis Manual Rrcmsdqcza6843[address] [place] [address] UA Clarity Cloudy Abnormal Clear [facility] Comment on above: Performed By: #### 2 958972 ####KADEN Urinalysis Manual Daylvebwhg15[address] [place] [address] UA Leuk Est Negative Normal Negative [facility] Comment on above: Performed By: #### 2 763707 ####KADEN Urinalysis Manual Fvxwqhhull3355[address] [place] [address] UA Mucous Trace Abnormal Trace [facility] Comment on above: Performed By: #### 2 033309 ####KADEN Urinalysis Manual Jawipatclu23[address] [place] [address] UA Nitrite Negative Normal Negative [facility] Comment on above: Performed By: #### 2 557760 ####KADEN Urinalysis Manual Jwlayewepg[address] [place] [address] UA pH 7.0 Normal 4.6-8.0 [facility] Comment on above: Performed By: #### 2 607737 ####KADEN Urinalysis Manual Wdlrfznxdg0822[address] [place] [address] UA Protein Negative Normal Negative [facility] Comment on above: Performed By: #### 2 554292 ####KADEN Urinalysis Manual Mbicdqfomd9[address] [place] [address] UA Spec Grav 1.018 Normal 1.003-1.03 0 [facility] Comment on above: Performed By: #### 2 981105 ####KADEN Urinalysis Manual Ncawfiklnp9701 [place] [address] UA Squam Epithelial 0-5 Normal 0-5 [facility] Comment on above: Performed By: #### 2 236300 ####KADEN Urinalysis Manual Tfquqliuvy0717 [place] [address] UA Urobilinogen Negative Normal [facility] Comment on above: Performed By: #### 2 484301 ####KADEN Urinalysis Manual Lxjofzywxw[address] [place] [address] Urine, color Yellow Normal Yellow [facility] Comment on above: Performed By: #### 2 149073 ####KADEN Urinalysis Manual Bmnugagrbm1422[address] [place] [address] Urine, glucose Negative Normal Negative [facility] Comment on above: Performed By: #### 2 467084 ####KADEN Urinalysis Manual Ozykkzxrvf9[address] [place] [address] Urine, ketones presence 2+ Abnormal Negative [facility] Comment on above: Performed By: #### 2 570982 ####KADEN Urinalysis Manual Xdnyyoibrd15[address] [place] [address] Urine, urobilinogen Negative Normal Negative [facility] Comment on above: Performed By: #### 2 120667 ####KADEN Urinalysis Manual Utwtehxcdj5[address] [place] [address] eGFRon 04-18-2017 eGFR (non-black) mL/min/{1.73_m2} Normal [facility] Comment on above: Order Comment: Order added by Discern Expert. Performed By: #### 1 [id number] ####KADEN XeeDwmg2807 [place] [address] eGFR AA >60 Normal [facility] Comment on above: Order Comment: Order added by Discern Expert. Performed By: #### 1 1274665 ####KADEN YibGrmc9969 [place] [address] Auto Diffon 04-11-2017 Basophils Auto #/vol (Bld) 0.1 E3/mcL Normal 0.0-0.2 [facility] Comment on above: Order Comment: Order Added by Discern Expert. Performed By: #### 2 544525 ####KADEN LeyHnpo7092 [place] [address] Basophils/100 WBC Auto (Bld) 0.7 % Normal 0.0-2.0 [facility] Comment on above: Order Comment: Order Added by Discern Expert. Performed By: #### 2 723071 ####KADEN FvzJjmm3424 [place] [address] Eos Absolute 0.0 E3/mcL Normal 0.0-0.7 [facility] Comment on above: Order Comment: Order Added by Discern Expert. Performed By: #### 2 629789 ####KADEN NqmMdjv6471 [place] [address] Eosinophils/100 leukocytes 0.1 % Normal 0.0-11.0 [facility] Comment on above: Order Comment: Order Added by Discern Expert. Performed By: #### 2 359497 ####KADEN HvtLalh6786 [place] [address] Lymphocytes 1.5 E3/mcL Normal 1.2-3.4 [facility] Comment on above: Order Comment: Order Added by Discern Expert. Performed By: #### 2 481546 ####KADEN SktKfgw9553 [place] [address] Lymphocytes/100 leukocytes 17.2 % Low 20.0-55.0 [facility] Comment on above: Order Comment: Order Added by Discern Expert. Performed By: #### 2 450864 ####KADEN JgpVwat1643 [place] [address] [place] Absolute 0.6 E3/mcL Normal 0.0-0.7 [facility] Comment on above: Order Comment: Order Added by Discern Expert. Performed By: #### 2 685369 ####KADEN ObpIqal2953 [place] [address] Monocytes/100 leukocytes 6.6 % Normal 0.0-10.0 [facility] Comment on above: Order Comment: Order Added by Discern Expert. Performed By: #### 2 763194 ####KADEN JehMnmk9328 [place] [address] Neutro Absolute 6.7 E3/mcL High 1.4-6.5 [facility] Comment on above: Order Comment: Order Added by Discern Expert. Performed By: #### 2 040184 ####KADEN Luceroo1025 [place] [address] Neutro Auto 75.4 % High 37.0-75.0 [facility] Comment on above: Order Comment: Order Added by Discern Expert. Performed By: #### 2 572708 ####KADEN Luceroo1025 [place] [address] BMPon 04-11-2017 BUN/Creatinine Ratio 12.9 ratio Normal 5.4-30.0 [facility] Comment on above: Performed By: #### 2 817744 ####KADEN Bai1025 [place] [address] Creatinine 0.7 mg/dL Normal 0.6-1.3 [facility] Comment on above: Performed By: #### 2 213550 ####KADEN IuyRxdi2196 [place] [address] Urea nitrogen 9 mg/dL Normal 7-18 [facility] Comment on above: Performed By: #### 2 586796 ####KADEN Bai1025 [place] [address] Calcium 9.5 mg/dL Normal 8.4-10.2 [facility] Comment on above: Performed By: #### 2 850913 ####KADEN BairdNvrLuja3841 [place] [address] Chloride 105 mmol/L Normal 98-107 [facility] Comment on above: Performed By: #### 2 707064 ####KADEN BairdEwhBhix9066 [place] [address] CO2 22.5 mmol/L Low 24.0-30.0 [facility] Comment on above: Performed By: #### 2 057484 ####KADEN BairdMryBvgj6841 [place] [address] Glucose mass conc 92 mg/dL Normal 70-99 [facility] Comment on above: Performed By: #### 2 582717 ####KADEN RzqOxod8699 [place] [address] Potassium molar conc 3.6 mmol/L Normal 3.5-5.1 [facility] Comment on above: Performed By: #### 2 013440 ####KADEN ZzlWsgf2146 [place] [address] Sodium 137 mmol/L Normal 136-145 [facility] Comment on above: Performed By: #### 2 847685 ####KADEN FvnHuvc8997 [place] [address] BhCG Quanton 04-11-2017 Beta hCG Qnt 8564.0 mIU/m Normal [facility] Comment on above: Result Comment: FEMA LE (NON-) & MALE <3 BORDERLINE 3 - 5 SUGGEST REPEAT TESTING FEMALE () 1 D - 1 WK 5 - 50 1 - 2 WK 50 - 500 2 - 3 WK 100 - 5000 3 - 4 WK 500 - 20142 4 - 5 WK 1000 - 56090 5 - 6 WK 90156 - 524864 6 - 8 WK [address] - 890978 2 - 3 [place] [address] - 367637 Performed By: #### 2 906874 ####KADEN ZbvNwel7538 [place] [address] CBC w/ Auto Diffon 7 Erythrocyte distribution width Auto Ratio (RBC) 13.9 % Normal 11.5-14.5 [facility] Comment on above: Performed By: #### 2 052309 ####KADEN YxoDzmw8976 [place] [address] Erythrocytes (RBC) 4.63 E6/mcL Normal 3.90-5.40 [facility] Comment on above: Performed By: #### 2 061327 ####KADENMorelia LuceroJctBvbr2869 [place] [address] Hematocrit (HCT) 38.2 % Normal 36.0-48.0 [facility] Comment on above: Performed By: #### 2 972119 ####KADENMorelia LuceroZbbMyee1128 [place] [address] Hemoglobin mass conc (Bld) 12.6 g/dL Normal 12.0-16.0 [facility] Comment on above: Performed By: #### 2 092373 ####KADENMorelia LuceroFjrVowv8506 [place] [address] MCH 27.2 pg Normal 27.0-31.0 [facility] Comment on above: Performed By: #### 2 468264 ####KADEN BairdIrbZcam8576 [place] [address] MCHC mass conc (RBC) 33.0 g/dL Normal 33.0-37.0 [facility] Comment on above: Performed By: #### 2 007473 ####KADEN BairdVwbBync7613 [place] [address] MCV 82.6 fL Normal 78.0-100.0 [facility] Comment on above: Performed By: #### 2 387049 ####KADEN BairdTtaYvji1227 [place] [address] Platelet mean volume (PMV) 8.0 fL Normal 7.4-11.0 [facility] Comment on above: Performed By: #### 2 280742 ####KADEN BairdJxiYbdw8445 [place] [address] Platelets 233 E3/mcL Normal 130-400 [facility] Comment on above: Performed By: #### 2 974820 ####KADEN BairdFiuVavr6843 [place] [address] WBC (Leukocytes) 9.0 E3/mcL Normal 3.6-11.0 [facility] Comment on above: Performed By: #### 2 992978 ####KADEN BairdLjiHclj5187 [place] [address] UA Completeon 04-11-2017 UA Blood Negative Normal Negative [facility] Comment on above: Result Comment: High concentration of Ascorbic Acid present in urine. This may cause False Negative Occ Blood. Review microscopic results and patient's clinical symptoms. Performed By: #### 8 [id number] ####KADEN Urinalysis Automated Pwnnzcvmle9472 [place] [address] UA Amorph Chastity 1+ /HPF Abnormal None [facility] Comment on above: Performed By: #### 8 7417284 ####KADEN Urinalysis Automated Qonkoljhqo3750 [place] [id number] UA Ascorbic Acid 40 mg/dL High <=19 [facility] Comment on above: Performed By: #### 8 6241566 ####KADEN Urinalysis Automated Otmytafmnd1645 [place] [address] UA Bacteria Trace Abnormal None [facility] Comment on above: Performed By: #### 8 9742764 ####KADEN Urinalysis Automated Gbbqjmndts6058 [place] 5567005 UA Clarity Cloudy Abnormal Clear [facility] Comment on above: Performed By: #### 8 6324784 ####KADEN Urinalysis Automated Uyeglxlwsi8363 [place] [address] UA Leuk Est Negative Normal Negative [facility] Comment on above: Performed By: #### 8 0170488 ####KADEN Urinalysis Automated Mfqcnsijtf[address] [place] [address] UA Mucous Few Abnormal Trace [facility] Comment on above: Performed By: #### 8 9154921 ####KADEN Urinalysis Automated Jurdrkgvda6[address] [place] [address] UA Nitrite Negative Normal Negative [facility] Comment on above: Performed By: #### 8 4027058 ####KADEN Urinalysis Automated Yrfupafaxp11[address] [place] [address] UA pH 7.0 Normal 4.6-8.0 [facility] Comment on above: Performed By: #### 8 [id number] ####KADEN Urinalysis Automated [address] [place] [address] UA Protein Negative Normal Negative [facility] Comment on above: Performed By: #### 8 [id number] ####KADEN Urinalysis Automated [address] [place] [address] UA Spec Grav 1.025 Normal 1.003-1.03 0 [facility] Comment on above: Performed By: #### 8 [id number] ####KADEN Urinalysis Automated [address] [place] [address] UA Squam Epithelial 5-10 Abnormal 0-5 [facility] Comment on above: Performed By: #### 8 [id number] ####KADEN Urinalysis Automated [address] [place] [address] UA Urobilinogen 2.0 mg/dL Abnormal [facility] Comment on above: Performed By: #### 8 [id number] ####KADEN Urinalysis Automated Mgrohiwtte9522 [place] [address] Urine, color Yellow Normal Yellow [facility] Comment on above: Performed By: #### 8 [id number] ####KADEN Urinalysis Automated Nmdreetckk9235 [place] [address] Urine, erythrocytes 0-3 Normal 0-3 [facility] Comment on above: Performed By: #### 8 [id number] ####KADEN Urinalysis Automated Rknhnzhzvm4863 [place] [address] Urine, glucose Negative Normal Negative [facility] Comment on above: Performed By: #### 8 [id number] ####KADEN Urinalysis Automated [address] [place] [address] Urine, ketones presence 2+ Abnormal Negative [facility] Comment on above: Performed By: #### 8 [id number] ####KADEN Urinalysis Automated [address] [place] [address] Urine, urobilinogen Negative Normal Negative [facility] Comment on above: Performed By: #### 8 [id number] ####KADEN Urinalysis Automated Ebddfmokxj4233 [place] [address] eGFRon 04-11-2017 eGFR (non-black) mL/min/{1.73_m2} Normal [facility] Comment on above: Order Comment: Order added by Discern Expert. Performed By: #### 1 [id number] ####KADEN JlpNdkn5755 [place] [address] eGFR AA >60 Normal [facility] Comment on above: Order Comment: Order added by Discern Expert. Performed By: #### 1 [id number] ####KADEN PquFhnx8593 [place] [address] U BhCG Qlton 03-20-2017 HCG.beta subunit Qn Negative Normal Neg [facility] Comment on above: Performed By: #### 2 [id number] ####KADEN Urinalysis Manual [address]otsqkufrj9091 [place] [id number] UA Completeon 03-20-2017 UA Blood Negative Normal Negative [facility] Comment on above: Performed By: #### 8 [id number] ####KADEN Urinalysis Automated Frckquyccz9093 [place] [address] UA Amorph Chastity 1+ /HPF Abnormal None [facility] Comment on above: Performed By: #### 8 [id number] ####KADEN Urinalysis Automated Ghhaslwtvi4466 [place] [id number] UA Bacteria 2+ /HPF Abnormal None [facility] Comment on above: Performed By: #### 8 [id number] ####KADEN Urinalysis Automated Uzuzymhfni0812 [place] [address] UA Clarity Cloudy Abnormal Clear [facility] Comment on above: Performed By: #### 8 [id number] ####KADEN Urinalysis Automated [address] [place] [address] UA Leuk Est 1+ Abnormal Negative [facility] Comment on above: Performed By: #### 8 [id number] ####KADEN Urinalysis Automated [address] [place] [address] UA Mucous Occasional Abnormal Trace [facility] Comment on above: Performed By: #### 8 [id number] ####KADEN Urinalysis Automated [address] [place] [address] UA Nitrite Negative Normal Negative [facility] Comment on above: Performed By: #### 8 [id number] ####KADEN Urinalysis Automated [address]rntq[address] [place] [address] UA pH 6.0 Normal 4.6-8.0 [facility] Comment on above: Performed By: #### 8 [id number] ####KADEN Urinalysis Automated K[address] [place] [address] UA Protein 1+ Abnormal Negative [facility] Comment on above: Performed By: #### 8 [id number] ####KDAEN Urinalysis Automated [address]xqyofv[address] [place], [place] [id number] UA Spec Grav 1.019 Normal 1.003-1.03 0 [facility] Comment on above: Performed By: #### 8 [id number] ####KADEN Urinalysis Automated Mvxbcbetlb0381 [place] [address] UA Squam Epithelial 5-10 Abnormal 0-5 [facility] Comment on above: Performed By: #### 8 [id number] ####KADEN Urinalysis Automated Edzfywuunt3255 [place] [address] UA Urobilinogen Negative Normal [facility] Comment on above: Performed By: #### 8 [id number] ####KADEN Urinalysis Automated Lkduucfzio7720 [place] [address] UA WBC >50 Abnormal 0-5 [facility] Comment on above: Performed By: #### 8 [id number] ####KADEN Urinalysis Automated Rllbkhwavk[address] [place] [address] Urine, color Yellow Normal Yellow [facility] Comment on above: Performed By: #### 8 [id number] ####KADEN Urinalysis Automated Ufnqcabmqw7924 [place] [address] Urine, erythrocytes 5-10 Abnormal 0-3 [facility] Comment on above: Performed By: #### 8 [id number] ####KADEN Urinalysis Automated Izrdvnjnoo9095 [place] [address] Urine, glucose Negative Normal Negative [facility] Comment on above: Performed By: #### 8 [id number] ####KADEN Urinalysis Automated Mtzgcbqhqg0712 [place] [address] Urine, ketones presence Negative Normal Negative [facility] Comment on above: Performed By: #### 8 [id number] ####KADEN Urinalysis Automated Fbqidgwire5492 [place] [address] Urine, urobilinogen Negative Normal Negative [facility] Comment on above: Performed By: #### 8 [id number] ####KADEN Urinalysis Automated Igtnwaurpn2288 [place] [address] Vital Signs Date Time Vital Sign Value Performing Clinician Facility 07-18-2023 10:30-0500 Body mass index (BMI) [Ratio] 26.7 kg/m2 [facility] Work Phone: [facility] 07-18-2023 10:30-0500 Body weight 75.03 kg [facility] Work Phone: [facility] 07-18-2023 10:30-0500 Diastolic blood pressure 68 mm[Hg] [facility] Work Phone: [facility] 07-18-2023 10:30-0500 Systolic blood pressure 106 mm[Hg] Cuong Ortiz DO Work Phone: [facility] 02-11-2023 14:13-0400 Body height 165.1 cm PA-Ventura Wyatt Work Phone: [facility] 02-11-2023 14:13-0400 Body temperature 97.9 [degF] PA-C Andie Wyatt Work Phone: [facility] 02-11-2023 14:13-0400 Body weight 70.55 kg PA-Ventura Wyatt Work Phone: [facility] 02-11-2023 14:13-0400 Diastolic blood pressure 80 mm[Hg] PA-Ventura Wyatt Work Phone: [facility] 02-11-2023 14:13-0400 Heart rate 60 /min SADAF Wyatt Work Phone: [facility] 02-11-2023 14:13-0400 Respiratory rate 15 /min SADAF Wyatt Work Phone: [facility] 02-11-2023 14:13-0400 SaO2% (BldA) [Mass fraction] 99 % SADAF Wyatt Work Phone: [facility] 02-11-2023 14:13-0400 Systolic blood pressure 134 mm[Hg] PA-Ventura Wyatt Work Phone: [facility] 02-08-2023 12:36-0400 Body height 165.1 cm PA-Ventura Wyatt Work Phone: [facility] 02-08-2023 12:36-0400 Body temperature 98.2 [degF] FERMIN-Ventura Wyatt Work Phone: [facility] 02-08-2023 12:36-0400 Body weight 72.57 kg SADAF Wyatt Work Phone: [facility] 02-08-2023 12:36-0400 Diastolic blood pressure 84 mm[Hg] PA-C Andie Wyatt Work Phone: [facility] 02-08-2023 12:36-0400 Heart rate 74 /min PA-C Andie Wyatt Work Phone: [facility] 02-08-2023 12:36-0400 Respiratory rate 15 /min PA-C Andie Wyatt Work Phone: [facility] 02-08-2023 12:36-0400 SaO2% (BldA) [Mass fraction] 98 % PA-C Andie Wyatt Work Phone: [facility] 02-08-2023 12:36-0400 Systolic blood pressure 150 mm[Hg] PA-C Andie Wyatt Work Phone: [facility] 12-19-2022 14:43-0400 Body temperature 96.9 [degF] FERMIN-C Andie Wyatt Work Phone: [facility] 12-19-2022 14:43-0400 Diastolic blood pressure 74 mm[Hg] PA-C Andie Wyatt Work Phone: [facility] 12-19-2022 14:43-0400 Heart rate 59 /min PA-C Andie Wyatt Work Phone: [facility] 12-19-2022 14:43-0400 Respiratory rate 18 /min FERMIN-Ventura Wyatt Work Phone: [facility] 12-19-2022 14:43-0400 SaO2% (BldA) [Mass fraction] 100 % PA-C Andie Wyatt Work Phone: [facility] 12-19-2022 14:43-0400 Systolic blood pressure 115 mm[Hg] PA-C Andie Wyatt Work Phone: [facility] 12-19-2022 14:00-0400 Diastolic blood pressure 89 mm[Hg] PA-Ventura Wyatt Work Phone: [facility] 12-19-2022 14:00-0400 Heart rate 79 /min PA-C Andie Wyatt Work Phone: [facility] 12-19-2022 14:00-0400 Respiratory rate 16 /min PAZhao Wyatt Work Phone: [facility] 12-19-2022 14:00-0400 SaO2% (BldA) [Mass fraction] 99 % PA-Ventura Wyatt Work Phone: [facility] 12-19-2022 14:00-0400 Systolic blood pressure 150 mm[Hg] PA-Ventura Wyatt Work Phone: [facility] 12-19-2022 03:30-0400 Body height 165.1 cm PAZhao Wyatt Work Phone: [facility] 12-19-2022 03:30-0400 Body weight 72.2 kg PAZhao Wyatt Work Phone: [facility] 12-18-2022 23:07-0400 Body height 165.1 cm PAZhao Wyatt Work Phone: [facility] 12-18-2022 23:07-0400 Body weight 74.2 kg SADAF Wyatt Work Phone: [facility] 12-18-2022 23:05-0400 Body temperature 98.5 [degF] SADAF Wyatt Work Phone: [facility] 08-20-2022 14:31-0500 Body height 165.1 cm PAZhao Wyatt Work Phone: [facility] 08-20-2022 14:31-0500 Body temperature 98.9 [degF] FERMIN-Ventura Wyatt Work Phone: [facility] 08-20-2022 14:31-0500 Body weight 71.55 kg SADAF Wyatt Work Phone: [facility] 08-20-2022 14:31-0500 Diastolic blood pressure 87 mm[Hg] PA-Ventura Wyatt Work Phone: [facility] 08-20-2022 14:31-0500 Heart rate 97 /min PAZhao Wyatt Work Phone: [facility] 08-20-2022 14:31-0500 Respiratory rate 18 /min PA-Ventura Wyatt Work Phone: [facility] 08-20-2022 14:31-0500 SaO2% (BldA) [Mass fraction] 98 % PA-Ventura Wyatt Work Phone: [facility] 08-20-2022 14:31-0500 Systolic blood pressure 135 mm[Hg] PA-Ventura Wyatt Work Phone: [facility] 02-08-2022 03:06-0400 Body weight 68.[address] CUONG ORTIZ . [facility] Comment on above: Performed By: #### AFPMAT #### [facility] [address] [place] [address] Dr. Juan Antonio Ibarra 02-05-2022 18:24-0400 Body height 165.1 cm PAZhao Wyatt Work Phone: [facility] 02-05-2022 18:24-0400 Body temperature 98.3 [degF] PAZhao Wyatt Work Phone: [facility] 02-05-2022 18:24-0400 Body weight 67.9 kg SADAF Wyatt Work Phone: [facility] 02-05-2022 18:24-0400 Diastolic blood pressure 68 mm[Hg] PA-Ventura Wyatt Work Phone: [facility] 02-05-2022 18:24-0400 Heart rate 92 /min SADAF Wyatt Work Phone: [facility] 02-05-2022 18:24-0400 Respiratory rate 18 /min PAZhao Wyatt Work Phone: [facility] 02-05-2022 18:24-0400 SaO2% (BldA) [Mass fraction] 99 % PAZhao Wyatt Work Phone: [facility] 02-05-2022 18:24-0400 Systolic blood pressure 125 mm[Hg] SADAF Wyatt Work Phone: [facility] Encounters Encounter Date Encounter Type Care Provider Facility Start: 10-28-2023 End: 10-28-2023 ambulatory CUONG DIANA Not Available Start: 10-14-2023 End: 10-14-2023 ambulatory CUONG DIANA Not Available Start: 09-30-2023 End: 09-30-2023 ambulatory CUONG DIANA Not Available Start: 09-12-2023 End: 09-12-2023 ambulatory CUONG DIANA Not Available Start: 08-15-2023 End: 08-15-2023 ambulatory [facility] Start: 08-15-2023 End: 08-15-2023 ambulatory CUONG DIANA Not Available Start: 07-22-2023 Documentation procedure Lucio HARPER Work Phone: [facility] Comment on above: Outgoing Ca ll [...] pre gnancy Start: 07-18-2023 End: 07-18-2023 ambulatory [facility] Start: 07-03-2023 End: 07-03-2023 ambulatory CUONG R [facility] Start: 07-03-2023 End: 07-03-2023 Telemedicine consultation with patient Rosaura HARPER Work Phone: [facility] Comment on above: Family history of ge netic disorder (Primary Dx); Genetic testing; Fetus with trisomy 13, single gestation Start: 06-20-2023 End: 06-20-2023 ambulatory BARB KRAMER Not Available Start: 05-23-2023 End: 05-23-2023 ambulatory CUONG ORTIZ Not Available Start: 04-16-2023 ambulatory Cesar Clayton acility:[facility] Start: 02-11-2023 End: 02-11-2023 Emergency department patient visit Johnson Annie Facility:[facility] Start: 02-11-2023 End: 02-11-2023 Emergency department patient visit SADAF Wyatt Work Phone: [facility] Work Phone: Start: 02-08-2023 End: 02-08-2023 Emergency department patient visit Elle Rhodes Facility:[facility] Start: 02-08-2023 End: 02-08-2023 Emergency department patient visit SADAF Wyatt Work Phone: [facility] Work Phone: Start: 12-19-2022 End: 12-19-2022 ambulatory Arden Orozco Facility:[facility] Start: 12-19-2022 End: 12-19-2022 Evaluation and management of inpatient SADAF Wyatt Work Phone: [facility] Work Phone: Start: 12-19-2022 End: 12-19-2022 observation encounter SADAF Wyatt Work Phone: [facility] Work Phone: Start: 10-24-2022 End: 10-24-[address] CUONG ORTIZ . Facility: Start: 10-23-2022 Registered Recurring SADAF Wyatt Work Phone: [facility] Start: 08-20-2022 End: 08-20-2022 Emergency department patient visit Elle Rhodes Facility:[facility] Start: 08-20-2022 End: 08-20-2022 Emergency department patient visit SADAF Wyatt Work Phone: [facility] Work Phone: Start: 07-23-[address] CUONG ORTIZ . Facili ty:[facility] Start: 07-09-2022 End: 07-09-[address] CUONG ORTIZ . Facility:[facility] Start: 07-05-2022 End: 07-07-2022 Evaluation and management of inpatient DR CUONG ORTIZ . Facility: Start: 07-02-2022 End: 07-02-2022 [facility] Facility: Start: 06-28-2022 End: 06-28-2022 [...] department patient visit SADAF Wyatt Work Phone: [facility] Start: 12-26-2021 End: 12-27-[address] CUONG ORTIZ . Facility:[facility] Start: 12-07-2021 End: 12-08-[address] CUONG ORTIZ . Facility: Start: 12-27-2017 End: 12-27-2017 Patient encounter Christian Ivan Facility:[facility] Start: 12-12-2017 End: 12-12-2017 Emergency department patient visit Luke Barbosa Facility:[facility] Start: 12-12-2017 Patient encounter Facil [id number] Start: 12-07-2017 Evaluation and management of inpatient CLARA JAMA Facility:[facility] Start: 12-03-2017 Evaluation and management of inpatient CLARA JAMA Facility:[facility] Start: 12-03-2017 Patient encounter procedure CLARA JAMA Facility:[facility] Start: 12-02-2017 Evaluation and management of inpatient CLARA JAMA Facility:[facility] Start: 11-30-2017 End: 12-02-2017 Evaluation and management of inpatient CLARA OLIVIA JAMA [facility] Start: 11-30-2017 End: 11-30-2017 Patient encounter Salomon Nguyen Facility:[facility] Start: 11-30-2017 Patient encounter Facil [id number] Start: 11-28-2017 End: 11-28-2017 Patient encounter CLARA JAMA [facility] Start: 11-21-2017 End: 11-21-2017 Patient encounter OKSANA MASON [facility] Start: 11-21-2017 End: 11-21-2017 Patient encounter Juanita Frank Facility:[facility] Start: 11-20-2017 Patient encounter Facil [id number] Start: 11-17-2017 End: 11-17-2017 Patient encounter Christian Ivan Facility:[facility] Start: 11-16-2017 Patient encounter Facil [id number] Start: 11-07-2017 End: 11-07-2017 Patient encounter OKSANA AMADO [place] Start: 10-31-2017 End: 10-31-2017 Patient encounter CLARA JAMA [facility] Start: 10-24-2017 End: 10-24-2017 Patient encounter MARCO ANTONIO ANTONIO [facility] Start: 10-16-2017 End: 10-16-2017 Patient encounter Christian Ivan Facility:[facility] Start: 10-08-2017 End: 10-08-2017 [facility] Start: 10-08-2017 End: 10-08-2017 Patient encounter OKSANA AMADO [place] Start: 10-01-2017 End: 10-02-2017 Patient encounter Christian Ivan Facility:[facility] Start: 09-10-2017 End: 09-11-2017 Patient encounter LUIS DANIEL VALERI [facility] Start: 09-10-2017 End: 09-10-2017 Patient encounter KRIS Yola HOYT [facility] Start: 09-10-2017 End: 09-10-2017 Patient encounter CLARA JAMA [facility] Start: 09-03-2017 End: 09-04-2017 Patient encounter Christian Ivan Facility:[facility] Start: 08-28-2017 Ambulatory NAGA [facility] Start: 08-13-2017 End: 08-14-2017 Patient encounter CLARA JAMA [facility] Start: 08-13-2017 End: 08-13-2017 Patient encounter MEREDITH BENITO [facility] Start: 08-13-2017 End: 08-13-2017 [facility] Start: 08-10-2017 End: 08-10-2017 Emergency department patient visit Luke Barbosa Facility:[facility] Start: 08-06-2017 End: 08-07-2017 Patient encounter Christianshoaib Ivan Facility:[facility] Start: 07-23-2017 End: 07-24-2017 Patient encounter Christianshoaib Ivan Facility:[facility] Start: 07-18-2017 End: 07-18-2017 Patient encounter CLARA JAMA [facility] Start: 07-09-2017 End: 07-10-2017 Patient encounter Christian Morelia Shekhar Facility:[facility] Start: 06-25-2017 End: 06-26-2017 Patient encounter Christian Morelia Ivan Facility:[facility] Start: 06-12-2017 End: 06-12-2017 Patient encounter Christianshoaib Ivan Facility:[facility] Start: 05-14-2017 End: 05-15-2017 Patient encounter Christianshoaib Ivan Facility:[facility] Start: 05-01-2017 End: 05-02-2017 Patient encounter Salomon Nguyen Facility:[facility] Start: 04-23-2017 End: 04-23-2017 Patient encounter Yasmin Evans Facility:[facility] Start: 04-22-2017 End: 04-22-2017 Emergency department patient visit Luke Barbosa Facility:[facility] Start: 04-18-2017 End: 04-18-2017 Emergency department patient visit Luke Barbosa Facility:[facility] Start: 04-16-2017 End: 04-17-2017 Patient encounter Gamaliel Savage Facility:[facility] Start: 04-16-2017 End: 04-17-2017 Patient encounter Christian Ivan Facility:[facility] Start: 04-11-2017 End: 04-11-2017 Emergency department patient visit Nodr No Doctor Assigned Facility:[facility] Start: 03-26-2017 End: 03-27-2017 Patient encounter Luke Barbosa Facility:[facility] Start: 03-20-2017 End: 03-20-2017 Emergency department patient visit Nodr No Doctor Assigned Facility:[facility] Start: 03-01-2017 End: 03-01-2017 Emergency department patient visit Nodr No Doctor Assigned Facility:[facility] Procedures Date Procedure Procedure Detail Performing Clinician Start: 07-18-2023 AFP, SERUM, OPEN SPI NA BIFIDA Cuong Ortiz DO Work Phone: Start: 07-18-2023 Urnls dip stick/tabl et rgnt non-auto w/o micrscp Cuong Ortiz DO Work Phone: Start: 12-19-2022 Urine culture PAZhao Drew Wyatt Work Phone: Start: 12-19-2022 CT of head without contrast SADAF Wyatt Work Phone: Start: 12-19-2022 Antibody screen Cary Jean Comment on above: Result Comment: PERF ORMED BY: [facility] [address] [place] [address] PATHOLOGIST CREDIT AND COLLECTIONS ANALYST MALVIN MEDLEY M.D. Start: 12-19-2022 X-ray of [...] Percutaneous Approach DR CUONG ORTIZ . Start: 11-16-2022 Adult depression scr eening assessment Rosaura Renee [facility] Work Phone: Start: 11-30-2017 Antibody screen SHAINA JAMA Comment on above: Performed By: #### T &S #### [place] [id number] Aerobic microbial culture FERMIN Wyatt Work Phone: Investigation of transfusion reaction SADAF Wyatt Work Phone: Plan of Treatment Date Care Activity Detail Author Start: 12-18-2032 DTaP,Tdap and Td Vaccines (10 - Td or Tdap) DTaP,Tdap and Td Vaccines (10 - Td or Tdap) [facility] Start: 09-11-2023 Adult BMI Screening Adult BMI Screening [facility] Start: 09-11-2023 Tobacco Screening Tobacco Screening [facility] Start: 08-15-2023 End: 08-15-2023 Patient encounter procedure 08/15/2023 2:15 PM EST Appointment [facility] [place] [address] [phone] [facility] Start: 08-15-2023 End: 08-15-2023 Patient encounter procedure 08/15/2023 9:10 AM EST Routine [facility] [address] [place] [id number] Cuong Ortiz, DO [address] [place] [address] [facility] Start: 07-18-2023 End: 07-18-2023 Patient encounter procedure 07/18/2023 8:00 AM EST Appointment [facility] [place] [address] [phone] [facility] [place] Start: 05-02-2023 Depression Screening Depression Screening [facility] Start: 02-15-2023 COVID-19 Vaccine () COVID-19 Vaccine () [facility] Start: 02-15-2023 Influenza vaccination [facility] Start: 12-19-2022 Bacteria identified in Urine by Culture Urine Culture [facility] Start: 12-19-2022 [facility] Start: 12-19-2022 CT of head without contrast CT head/brain wo con [facility] Start: 12-19-2022 CT Unspecified body region WO contrast [facility] Start: 12-19-2022 Consultation [facility] Start: 12-19-2022 Hospital admission [facility] Start: 12-19-2022 X-ray of left foot XR foot LT 2V [facility] Start: 12-19-2022 XR Foot - left 2 Views [facility] Start: 12-18-2022 Computed tomography of thoracic spine without contrast CT thoracic spine wo con [facility] Start: 12-18-2022 CT cervical spine without contrast CT cervical spine wo [facility] Start: 12-18-2022 CT Cervical spine WO contrast [facility] Start: 12-18-2022 CT Lumbar spine WO contrast [facility] Start: 12-18-2022 CT of head without contrast CT head/brain wo con [facility] Start: 12-18-2022 CT of lumbar spine without contrast CT lumbar spine wo [facility] Start: 12-18-2022 CT Thoracic spine WO contrast [facility] Start: 12-18-2022 CT Unspecified body region WO contrast [facility] Start: 12-18-2022 Pelvis X-ray XR pelvis 1-2V [facility] Start: 12-18-2022 Plain chest X-ray XR chest 1V portable [facility] Start: 12-18-2022 X-ray of both knees XR knee BI 2V [facility] Start: 12-18-2022 XR Chest Single view [facility] Start: 12-18-2022 XR Knee - bilateral 2 Views [facility] Start: 12-18-2022 XR Pelvis 1 or 2 Views [facility] Start: 2022 Screening for malignant neoplasm of cervix [facility] Start: 02-05-2022 [facility] Work Phone: Start: 2013 Screening for malignant neoplasm of cervix Pap Smear [facility] Start: 2010 Adult BMI Follow Up Plan Adult BMI Follow Up Plan [facility] Anaerobic microbial culture Anaerobic Culture [facility] Bacteria identified in Urine by Culture [facility] Patient Education [facility] Work Phone: Patient referral [facility] Work Phone: Immunizations Immunization Date Immunization Notes Care Provider Fa cility 12-18-2022 tetanus toxoid, redu swati diphtheria toxoid, and acellular pertussis vaccine, adsorbed SADAF Wyatt Work Phone: [facility] 05-19-2013 influenza virus vaccine, unspecified formulation Rosaura HARPER Work Phone: [facility] Payers Date Payer Category Payer Self-pay 2017 Medicaid 2017 Unknown 1992 Unknown [id number] 2.16.840.1.992925.3.579.2.278 1992 Unknown [id number] 2.16840.1.724361.3.579.2.278 1992 Unknown [id number] 2.16840.1.032475.3.579.2.278 1992 Unknown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
[2023-10-30 14:17] VITALS: BP 136/76; PULSE 93
--- NOTE | 2023-10-30 14:40 | US_ITS ---
[address] [address] Patient Name: ZULEIKA WADDELL MRN: [id number] date: 1990 Sex: F Assigned Patient Location: [facility] Current Patient Location: Accession/Order Number: [id number] Exam Date: 10/30/2023 14:45 Report Date: 10/30/2023 15:23 At the request of: DAVE CUELLAR Procedure: US OB BPP w non-stress EXAMINATION: US OB BPP w non-stress HISTORY: Family history of trisomy COMPARISON: No relevant comparison available. TECHNIQUE: Ultrasound biophysical profile was performed in the radiology department. non-reactive stress testing was performed by nursing staff in the birthing center. FINDINGS: BREATHING MOVEMENTS: 2.0 GROSS BODY MOVEMENTS: 2.0 TONE: 2.0 QUALITATIVE AMNIOTIC FLUID VOLUME: 2.0 PRESENTATION: CEPHALIC HEART RATE: 136.4 bpm H.B./min AMNIOTIC FLUID VOLUME: 11.5 cm cm GESTATIONAL AGE: 35 weeks 2 days CONCLUSION: Total biophysical profile score: 8.0 Electronically authenticated by: GAMALIEL CRUMP Date: 10/30/2023 15:23
== END 2023-10-30 15:00 | disposition home or self-care (01) ==
LOC: US 07:09 → FBC 14:07
PROVIDERS: PCP Physician Assistant; Visit Provider Obstetrics & Gynecology
DX: Z82.79 Family history of other congenital malformations, deformations and chromosomal abnormalities (principal); Z3A.35 35 weeks gestation of pregnancy
CPT/HCPCS: 76818

== ENCOUNTER 2023-11-02 02:52 | Outpatient (OUT) | payer MEDICAID, SELFPAY ==
--- OUTSIDE RECORDS SUMMARY | 2023-11-02 02:55 | XMS_ITS | CCD ---
Author Organization [facility] Care Team Providers Care Activities Coordinator Name Role Phone CLARA JAMA Unavailable Unavail able SERENITY MALDONADO Unavailable Unavailable OKSANA CARO Unavailable UnavaNAGA Hull Unavailable Unavailable BARBOSA, LUKE MALIK Unavailable Unavailable PatrickSalomon terrell R Unavailable Unavailable Patrick, Salomon R Unavailable Unavailable Barbosa, Luke Unavailable Unavailable Manatee, Christian A Unavailable Unavailable Barbosa, Luke Unavailable Unavailable Shekhar, Christian A Unavailable Unavailable Barbosa, Luke Unavailable Unavailable Manatee, Christian A Unavailable Unavailable Barbosa, Luke Unavailable Unavailable Manatee, Christian A Unavailable Unavailable Barbosa, Luke Unavailable Unavailable Manatee, Christian A Unavailable Unavailable Shekhar, Christian A Unavailable Unavailable Barbosa, Luke Unavailable Unavailable Manatee, Christian A Unavailable Unavailable Barboas, Luke Unavailable Unavailable Manatee, Christian A Unavailable Unavailable Manatee, Christian A Unavailable Unavailable Barbosa, Luke Unavailable Unavailable Barbosa, Luke Unavailable Unavailable Woo, Emiliano Unavailable Unavailable Woo, Emiliano Unavailable Unavailable Patrick, Salomon R Unavailable Unavailable Barbosa, Luke Unavailable Unavailable Barbosa, Luke Unavailable Unavailable Oscar, Jag W Unavailable Unavailable [place], Jag W Unavailable Unavailable Manatee, Christian A Unavailable Unavailable Barbosa, Luke Unavailable [...] Unavail able Oscar, Jag W Unavailable Unavailable [place], Jag W Unavailable Unavailable Barbosa, Luke Unavailable Unavailable No Doctor Assigned, Nodr Unavailable Unavail able SavageGamaliel M Unavailable Unavailable Barbosa, Luke Unavailable Unavailable Hannah, Aaron A Unavailable Unavailable Hannah, Aaron A Unavailable Unavailable Patrick, Salomon R Unavailable Unavailable Patrick, Salomon R Unavailable Unavailable Barbosa, Luke Unavailable Unavailable Frank, Juanita Unavailable Unavailable Frank, Juanita Unavailable Unavailable Barbosa, Luke Unavailable Unavailable Manatee, Christian A Unavailable Unavailable Shekhar, Christian A Unavailable Unavailable Barbosa, Luke Unavailable Unavailable Manatee, Christian A Unavailable Unavailable Barbosa, Luke Unavailable Unavailable Barbosa, Luke Unavailable Unavailable Oscar, Jag W Unavailable Unavailable Oscar, Jag W Unavailable Unavailable Manatee, Christian A Unavailable Unavailable Barbosa, Luke Unavailable [...] Unavailable Unavailable VALERI, LUIS DANIEL Unavailable Unavailable AVLERI, LUIS DANIEL Unavailable Unavailable PROVIDER, EXTERNAL Unavailable [...] Provider SADAF Wyatt Primary Care Provider Meagan [facility] Elle E Emergency Provider DIANA .DR ACOSTA Consulting Unavailable [facility] [...] ., DR ACOSTA Admitting Unavailable ZIEBER, DR EFLECIA Chadwick Consulting Unavailable DIANA ., DR ACOSTA [...] Unavailable ZIEBER, DR FELECIA Chadwick Consulting Unavailable DINAA ., DR ACOSTA Admitting Unavailable DIANA ., [...] DR ACOSTA Consulting Unavailable DIANA ., DR AOCSTA Procedure Practitioner Unavail able ORLANDO PRASAD Consulting Unavailable JACQUES FLETCHER Consulting Unavailable DIANA ., DR ACOSTA Admitting Unavailable DIANA ., DR ACOSTA Attending Unavailable [facility] Primary Care Unavailable KARASIK ., DR CAMACHO Consulting Unavailabl e ZIEBER, DR FELECIA Chadwick Consulting Unavailable SADAF Wyatt Primary Care Provider MD Farhan Jean Attending Provider Poe, DO Oscar Emergency Provider [phone] Itzkowitz, DO Adren Admit Provider Itzkocece, DO Arden Attending Provider FRED Ventura Other Provider UnavailMD Juan Edwards Other Provider BRISA MoniqueC Ailyn Other Provider MD Jacques Valerio Other Provider [phone] MD Edith Urias Other Provider SADAF Wyatt Primary Care Provider [place], GIZZARD PULLER-BC Elle E Emergency Provider BRANNON Valencia Emergency Provider [phone] Andie Wyatt PA-C Primary Care Provider [phone] CUONG ORTIZ Referring Unavailable ANDIE WYATT Primary [...] [BEES] Propensity to adverse reactions (disorder) 8 [facility] Repository (2 sources) Mold spore; Translations: [MOLD SPORES] Propensity to adverse reactions (disorder) 8 [facility] Repository (18 sources) Penicillins; Translations: [PENICILLINS] Propensity to adverse reactions to drug (disorder) [address] [facility] Rep[facility] (12 sources) Sulfonamides (Antibiotic); Translations: [SULFA (SULFONAMIDE ANTIBIOTICS)] Propensity to adverse reactions to drug (disorder) 8 AO, [facility] Repository (1 source) Bee/Wasp/Ant venom; Translations: [Bee Stings] Propensity to adverse reactions to drug (disorder) [facility] Repository (1 source) mold extract; Translations: [Mold] Drug Allergy [facility] Repository (1 source) Sulfonamides (Antibiotic); Translations: [sulfa drugs] Propensity to adverse reactions to drug (disorder) [facility] Repository (4 sources) bee venom; Translations: [BEE VENOM] Propensity to adverse reactions to drug (disorder) 8 [facility] Repository (1 source) OTHER; Translations: [OTHER] Propensity to adverse reactions to food (disorder) 8 [facility] Repository (1 source) MOLDS & SMUTS; Translations: [MOLDS & SMUTS] Propensity to adverse reactions to drug (disorder) 8 [facility] Repository (4 sources) SULFA ANTIBIOTICS; Translations: [SULFA ANTIBIOTICS] Propensity to adverse reactions to drug (disorder) 8 [facility] Repository (1 source) Sulfonamides (Antibiotic) Drug allergy (disorder) 4 [facility] Repository (4 sources) Bee Venom Protein (Honey Bee); Translations: [BEE VENOM PROTEIN (HONEY BEE)] Propensity to adverse reactions to drug 2 [facility] (1 source) Penicillin Drug Allergy 2 [facility] Repository (1 source) Sulfacetamide Drug Allergy 2 [facility] Repository Medications Current Medications Medication Drug [...] mouth in the morning. 0 02/27/2023 Active [place] (No Known Home Meds) (2 sources) Start: 12-18-2022 [place] (No Known Home Meds) Active December 18, [...] (-1 ORAL) Take by mouth. 0 Active Vypxcpqm-Via-Ix-FA (, w/Iron & FA,) 27-0.8 MG tablet (3 sources) Xlsnwsxp-Ico-Hb-FA (, w/Iron & FA,) 27-0.8 MG tablet 1 (one) time each day at the same time. 0 Active RE-Fea-JP-[place]-3 ( Gummies/DHA & FA) 0.4-32.5 MG chewable tablet (3 sources) Start: 07-09-2023 End: 08-08-2023 VH-Fzt-ON-[place]-3 ( Gummies/DHA & FA) 0.4-32.5 MG chewable [...] Onset: 11-30-2017 Unclassified (3 sources) M/C OTH PORTABLE TRACK CREW CHIEF 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 NA/UNS; Translations: [M/C OTH PORTABLE TRACK CREW CHIEF 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 NA/UNS] Onset: 07-05-2022 Unclassified (1 [...] 12-12-2021 Episodic Unclassified (1 source) M/C OTH PORTABLE TRACK CREW CHIEF 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 NA/UNS; Translations: [M/C OTH PORTABLE TRACK CREW CHIEF 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 NA/UNS] Onset: 07-02-2022 Results Test Name Value Interpretation Reference Range Facility AFP, SERUM, OPEN SPINA BIFID Aon 07-20-2023 AFP MOM 1.21 . [facility] AFP VALUE 70.2 ng/mL . [facility] COMMENT: Comment . [facility] Comment on above: Alma Chaudhary , Ph.D., [facility] Director References: Available Upon Request. Multiples Of Median Cutoffs For AFP Elevations Briscoe 2.5 Black 2.8 IDD 2.0 Twins 4.5 Abbreviation Definitions IDD - Insulin Dep Diabetes OSBR - Open Spina Bifida Risk For further inquiries contact [employer] [employer] [facility] at [phone]. This test was developed and its performance characteristics determined by [employer]. It has not been cleared or approved by the Food and Drug Administration. Performed at: [facility] [address] [place], [place] [id number] Compensation Consulting Manager: Oz Harkins [facility], Phone: [phone] GEST. AGE ON COLLECTION DATE 20.4 . weeks [facility] GESTAT. AGE BASED ON LMP . [facility] Comment on above: Recalculations are n ot recommended when gestational dating by LMP and ultrasound are within 10 days. INSULIN DEP DIABETES No . [facility] INTERPRETATION Comment . [facility] Comment on above: Interpretation: Scre en [...] Customer Services to discuss available options. The [employer] recommends amniocentesis be offered to women age 35 and older. [age] [facility] MULTIPLE GESTATION No . [facility] OSBR RISK 1 [place] 6301 . [facility] RACE . [facility] RESULTS Report . [facility] TEST RESULTS: Negative . [facility] WEIGHT 159 . lbs [facility] N N LMP [id number] 3 16 N 1 Y 159 N N N N White/ [facility] Urinalysis macro (dipstick) panel (U)on 07-18-2023 Bilirubin, UA Negative Negative - 4(70) +++ mg/dL [facility] Blood, UA Negative Negative - 50 Rakesh/mcL [facility] Clarity, UA Clear [facility] Color, UA Yellow [facility] Glucose, UA Negative Negative - 2000(110) ++++ mg/dL [facility] Interpretation and review of laboratory results Normal [facility] Ketones, UA Negative Negative - 160(16) ++++ mg/dL [facility] Leukocytes, UA Negative Negative - 500+++ Matti/mcL [facility] Nitrite, UA Negative Negative - Positive [facility] pH, UA 5.5 5 - 9 [facility] Protein, UA Negative Negative - 2000(20) ++++ mg/dL [facility] Spec Grav, UA 1.020 1 - 1.03 [facility] Urobilinogen, UA 1.0 0.2 - 12 mg/dL [facility] ABO/Rh Retypeon 12-19-2022 ABO/RH Recheck Result Positive Normal [facility] Comment on above: Result Comment: PERF ORMED BY: [facility] [address] [place] [address] PATHOLOGIST IRON WORKER FOREMAN MALVIN MEDLEY M.D. Amphetamine Screen Ql (U)Ord ered By: Oscar Poe on 12-19-2022 Amphetamines Ql (U) Negative Negative [facility] Amylaseon 12-19-2022 Amylase [Catalytic activity/Vol] 35 U/L Normal 29-103 [facility] Comment on above: Performed By: #### C BC, CREAT, GLU, LYTES, AST, ETOH, BARB, LIPASE, CK, BUN ####[facility] [id number] Aspartate Amino Transferaseo n 12-19-2022 AST [Catalytic activity/Vol] 26 U/L Normal 13-39 [facility] Comment on above: Performed By: #### C BC, CREAT, GLU, LYTES, AST, ETOH, BARB, LIPASE, CK, BUN ####[facility] [id number] Automated erythrocytes count in urine sediment (number/area)Ordered By: Oscar Poe on 12-19-2022 RBC Auto (Urine sed) [#/Area] 5-9 [HPF] 0-4 [facility] Automated leukocytes count i n urine sediment (number/area)Ordered By: Oscar Poe on 12-19-2022 WBC Auto (Urine sed) [#/Area] 10-19 [HPF] 0-4 [facility] Barbiturates [Presence] in U rine by Screen methodOrdered By: Oscar Poe on 12-19-2022 Barbiturates Screen Ql (U) Negative Negative [facility] Benzodiazepines Screen Ql (U )Ordered By: Oscar Poe on 12-19-2022 Benzodiazepines Ql (U) Negative Negative [facility] Benzoylecgonine [Presence] i n Urine by Screen methodOrdered By: Oscar Poe on 12-19-2022 Benzoylecgonine Screen Ql (U) Negative Negative [facility] Bilirubin Test strip Ql (U)O rdered By: Oscar Poe on 12-19-2022 Bilirubin Ql (U) Negative Negative [facility] Blood Urea Nitrogenon 2022 Urea nitrogen [Mass/Vol] 21 mg/dL Normal 7-25 [facility] Comment on above: Performed By: #### C BC, CREAT, GLU, LYTES, AST, ETOH, BARB, LIPASE, CK, BUN ####[facility] [id number] cervical spine wo conon 0 12-19-2022 CT cervical spine wo con [facility] [place] [address] CT Scan Report Signed Patient: Zuleika Wyatt MR#: [id number] : 1990 Acct:[id number] Age/Sex: 32 / F ADM Date: 12/19/22 Loc: 4 Room: [id number] Type: ADM INOo Attending Dr: Arden Orozco DO Copies to: DO Arden Jefferson DO Ordering Provider: Oscar Poe DO Date of Service: 12/18/22 CT/CT cervical spine wo con: f ([id number]) CT/CT head/brain wo con: f CT BRAIN [...] Pimentel Jr., D.O.12/19/2022 10:25 AM Dictation Location: [place] [address] Transcribed By: [facility] 12/19/22 1025 Dictated By: Rah Pimentel Jr, DO 12/19/22 1016 Signed By: 12/19/22 1025 [facility] [address] head/brain wo conon 12-19 CT head/brain wo con [facility] [address] CT Scan Report Signed Patient: Zuleika Wyatt MR#: [id number] : 1990 Acct:[id number] Age/Sex: 32 / F ADM Date: 12/19/22 Loc: Room: [address] [place] [address] Type: DIS INOo Attending Dr: Arden Orozco [...] Pimentel Jr., Sammie12/19/2022 3:28 PM Dictation Location: [place] [address] Transcribed By: DONTE 12/19/22 1528 Dictated By: Rah Pimentel Jr, DO 12/19/22 1524 Signed By: 12/19/22 1528 [facility] [address] [facility] spine [facility] lumbar spine wo [facility] [place] [address] CT Scan Report Signed Patient: Zuleika Wyatt MR#: [id number] : 1990 Acct:[id number] Age/Sex: 32 / F ADM Date: 12/19/22 Loc: Room: [address] [place] [address] Type: ADM INOo Attending Dr: Arden Orozco DO Copies to: DO Arden Jefferson DO Ordering Provider: Oscar Poe DO Date of Service: 12/18/22 CT/CT thoracic spine wo con: f ([id number]) CT/CT lumbar spine wo con: f CT [...] narrowing or hypertrophy. The ribs within the eehoy-cv-qrzc appear intact. No paraspinal soft tissue abnormalities are present. The ascending aorta is mildly ectatic. The heart is not fully imaged though it is at least borderline prominent. There is no consolidation, pleural effusion or pneumothorax within the lwhky-eh-advk. No lumbar compression fractures are identified. There [...] The intra-abdominal and pelvic structures within the ezzat-dh-nqal show no contributory findings. CT/CT thoracic spine wo con IMPRESSION: MILD THORACIC SCOLIOSIS. NO ACUTE BONY INJURY INVOLVING THE THORACIC OR LUMBAR SPINE. Impression dictated by: Adela Mahan M.D.12/19/2022 10:36 AM Dictation Location: [place] [address] Transcribed By: [facility] 12/19/22 1036 Dictated By: Adela Mahan MD 12/19/22 1026 Signed By: 12/19/22 1036 Normal [facility] Cannabinoids [Presence] in U rine by Screen methodOrdered By: Oscar Poe on 12-19-2022 Cannabinoids Screen Ql (U) Positive Negative [facility] Comment on above: These are unconfirme d results and should not be used for legal purposes. Drug Cut-Off Concentration: AMPH 1000 ng/mL SEEMA 200 ng/mL LAZ 200 ng/mL COCM 300 ng/mL OP 300 ng/mL PCP 25 ng/mL THC 20 ng/mL Color Auto (U)Ordered By: Fernando Poe on 12-19-2022 Color (U) Yellow Yellow [facility] Complete Blood Count Auto Di ffon 12-19-2022 Basophils (Bld) [#/Vol] 0.1 10*3/uL Normal 0.0-0.2 [facility] Comment on above: Result Comment: PERF ORMED BY: [facility] [address] [place] [address] PATHOLOGIST [employer] WORKER FOREMAN MALVIN MEDLEY M.D. Performed By: #### C BC, CREAT, GLU, LYTES, AST, ETOH, BARB, LIPASE, CK, BUN ####[address] Basophils/100 WBC (Bld) 0.7 % Normal . [facility] Comment on above: Performed By: #### C BC, CREAT, GLU, LYTES, AST, ETOH, BARB, LIPASE, CK, BUN ####[address] Eosinophils (Bld) [#/Vol] 0.0 10*3/uL Normal 0.0-0.45 [facility] Comment on above: Performed By: #### C BC, CREAT, GLU, LYTES, AST, ETOH, BARB, LIPASE, CK, BUN ####[address] Eosinophils/100 WBC (Bld) 0.2 % Normal . [facility] Comment on above: Performed By: #### C BC, CREAT, GLU, LYTES, AST, ETOH, BARB, LIPASE, CK, BUN ####[address] Erythrocyte distribution width (RBC) [Ratio] 14.4 % Normal 11.9-15.3 [facility] Comment on above: Performed By: #### C BC, CREAT, GLU, LYTES, AST, ETOH, BRAB, LIPASE, CK, BUN ####[address] Hematocrit (Bld) [Volume fraction] 36.2 % Normal 34.0-46.4 [facility] Comment on above: Performed By: #### C BC, CREAT, GLU, LYTES, AST, ETOH, BARB, LIPASE, CK, BUN ####[address] Hemoglobin (Bld) [Mass/Vol] 11.9 g/dL Normal 11.8-15.4 [facility] Comment on above: Performed By: #### C BC, CREAT, GLU, LYTES, AST, ETOH, BARB, LIPASE, CK, BUN ####[address] Lymphocytes (Bld) [#/Vol] 2.2 10*3/uL Normal 1.00-4.8 [facility] Comment on above: Performed By: #### C BC, CREAT, GLU, LYTES, AST, ETOH, BARB, LIPASE, CK, BUN ####[address] Lymphocytes/100 WBC (Bld) 21.8 % Normal . [facility] Comment on above: Performed By: #### C BC, CREAT, GLU, LYTES, AST, ETOH, BARB, LIPASE, CK, BUN ####[address] MCH (RBC) [Entitic mass] 26.9 pg Normal 24.7-34.3 [facility] Comment on above: Performed By: #### C BC, CREAT, GLU, LYTES, AST, ETOH, BARB, LIPASE, CK, BUN ####[address] MCV (RBC) [Entitic vol] 82.1 fL Normal 80-100 [facility] Comment on above: Performed By: #### C BC, CREAT, GLU, LYTES, AST, ETOH, BARB, LIPASE, CK, BUN ####[address] Mean Corpuscular HGB Conc 32.8 g/dL Normal 32.0-35.0 [facility] Comment on above: Performed By: #### C BC, CREAT, GLU, LYTES, AST, ETOH, BARB, LIPASE, CK, BUN ####[address] Monocytes (Bld) [#/Vol] 0.8 10*3/uL Normal 0.0-0.8 [facility] Comment on above: Performed By: #### C BC, CREAT, GLU, LYTES, AST, ETOH, BARB, LIPASE, CK, BUN ####[address] Monocytes/100 WBC (Bld) 22.19 % High 0.00-20.00 [facility] Comment on above: Result Comment: For adults in ED, MDW > 20.0 may be associated with a higher risk of sepsis during the first 12 hrs of hospital admission Performed By: #### C BC, CREAT, GLU, LYTES, AST, ETOH, BARB, LIPASE, CK, BUN ####[address] Monocytes/100 WBC (Bld) 7.4 % Normal . [facility] Comment on above: Performed By: #### C BC, CREAT, GLU, LYTES, AST, ETOH, BARB, LIPASE, CK, BUN ####[address] Neutrophils (Bld) [#/Vol] 7.2 10*3/uL Normal 1.8-7.7 [facility] Comment on above: Performed By: #### C BC, CREAT, GLU, LYTES, AST, ETOH, BARB, LIPASE, CK, BUN ####[address] Neutrophils/100 WBC (Bld) 69.9 % Normal . [facility] Comment on above: Performed By: #### C BC, CREAT, GLU, LYTES, AST, ETOH, BARB, LIPASE, CK, BUN ####[address] NRBC% 0.1 /100{WBC} Normal 0-0.5 [facility] Comment on above: Performed By: #### C BC, CREAT, GLU, LYTES, AST, ETOH, BARB, LIPASE, CK, BUN ####[address] Platelet mean volume (Bld) [Entitic vol] 8.1 fL Normal 6.3-10.7 [facility] Comment on above: Performed By: #### C BC, CREAT, GLU, LYTES, AST, ETOH, BARB, LIPASE, CK, BUN ####[address] Platelets (Bld) [#/Vol] 223 10*3/uL Normal 150-450 [facility] Comment on above: Performed By: #### C BC, CREAT, GLU, LYTES, AST, ETOH, BARB, LIPASE, CK, BUN ####[address] RBC (Bld) [#/Vol] 4.42 10*6/uL Normal 3.60-5.00 [facility] Comment on above: Performed By: #### C BC, CREAT, GLU, LYTES, AST, ETOH, BARB, LIPASE, CK, BUN ####[address] WBC (Bld) [#/Vol] 10.3 10*3/uL Normal 3.8-11.6 [facility] Comment on above: Performed By: #### C BC, CREAT, GLU, LYTES, AST, ETOH, BARB, LIPASE, CK, BUN ####[address] Creatine Kinaseon 12-19-2022 CK [Catalytic activity/Vol] 50 U/L Normal 30-223 [facility] Comment on above: Result Comment: PERF ORMED BY: [facility] [address] [place] [address] PATHOLOGIST [employer] WORKER FOREMAN MALVIN MEDLEY M.D. Performed By: #### C BC, CREAT, GLU, LYTES, AST, ETOH, BARB, LIPASE, CK, BUN ####[address] Creatinineon 12-19-2022 Creatinine [Mass/Vol] 0.84 mg/dL Normal 0.60-1.20 [facility] Comment on above: Performed By: #### C BC, CREAT, GLU, LYTES, AST, ETOH, BARB, LIPASE, CK, BUN ####[facility] [place] [address] [place] Creatinine Clr Calc Pharmacy 98.76 [facility] Comment on above: Performed By: #### C BC, CREAT, GLU, LYTES, AST, ETOH, BARB, LIPASE, CK, BUN ####[facility] GFR/1.73 sq M.predicted MDRD (S/P/Bld) [Vol rate/Area] mL/min/{1.73_m2} [facility] Comment on above: Performed By: #### C BC, CREAT, GLU, LYTES, AST, ETOH, BARB, LIPASE, CK, BUN ####[facility] Dipstick and Microscopicon 0 12-19-2022 Appearance (U) Clear Normal Clear [facility] Comment on above: Order Comment: Name Collection Type:: Clean-Voided Midstream Performed By: #### U RDS, UHCG, CUU, ADDONUAPLUS #### [facility] [address] [place] [address] [place] Bacteria,Urine None Seen Normal None Seen [facility] Comment on above: Order Comment: Name Collection Type:: Clean-Voided Midstream Performed By: #### U RDS, UHCG, CUU, ADDONUAPLUS #### [facility] [address] [place] [address] [place] Bilirubin,Urine Negative Normal Negative [facility] Comment on above: Order Comment: Name Collection Type:: Clean-Voided Midstream Performed By: #### U RDS, UHCG, CUU, ADDONUAPLUS #### [facility] [address] [place] [address] [place] Color (U) Yellow Normal Yellow [facility] Comment on above: Order Comment: Name Collection Type:: Clean-Voided Midstream Performed By: #### U RDS, UHCG, CUU, ADDONUAPLUS #### [facility] [address] [place] [address] [place] Glucose Ql (U) Normal Normal Normal [facility] Comment on above: Order Comment: Name Collection Type:: Clean-Voided Midstream Performed By: #### U RDS, UHCG, CUU, ADDONUAPLUS #### [facility] [address] [place] [address] Hyaline Casts,Urine 0-8 Normal 0-8 [facility] Comment on above: Order Comment: Name Collection Type:: Clean-Voided Midstream Performed By: #### U RDS, UHCG, CUU, ADDONUAPLUS #### [facility] [address] [place] [address] Ketones Ql (U) 1+ High Negative [facility] Comment on above: Order Comment: Name Collection Type:: Clean-Voided Midstream Performed By: #### U RDS, UHCG, CUU, ADDONUAPLUS #### [facility] [address] [place] [address] Leukocyte esterase Test strip Ql (U) 2+ High Negative [facility] Comment on above: Order Comment: Name Collection Type:: Clean-Voided Midstream Performed By: #### U RDS, UHCG, CUU, ADDONUAPLUS #### [facility] [address] [place] [address] Nitrite,Urine Negative Normal Negative [facility] Comment on above: Order Comment: Name Collection Type:: Clean-Voided Midstream Performed By: #### U RDS, UHCG, CUU, ADDONUAPLUS #### [facility] [facility] [address] [place] [address] [place] Occult Blood,Urine Negative Normal Negative [facility] Comment on above: Order Comment: Name Collection Type:: Clean-Voided Midstream Performed By: #### U RDS, UHCG, CUU, ADDONUAPLUS #### [facility] [address] [place] [address] pH (U) 5.5 [pH] Normal 5.0-9.0 [facility] Comment on above: Order Comment: Name Collection Type:: Clean-Voided Midstream Performed By: #### U RDS, UHCG, CUU, ADDONUAPLUS #### [facility] [address] [place] [address] [place] Protein,Urine Negative Normal Negative [facility] Comment on above: Order Comment: Name Collection Type:: Clean-Voided Midstream Performed By: #### U RDS, UHCG, CUU, ADDONUAPLUS #### [facility] [address] [place] [address] [place] RBC,Urine 5-9 High 0-4 [facility] Comment on above: Order Comment: Name Collection Type:: Clean-Voided Midstream Performed By: #### U RDS, UHCG, CUU, ADDONUAPLUS #### [facility] [address] [place] [address] Specificy [place],Urine 1.025 Normal 1.001-1.03 0 [facility] Comment on above: Order Comment: Name Collection Type:: Clean-Voided Midstream Performed By: #### U RDS, UHCG, CUU, ADDONUAPLUS #### [facility] [address] [place] [address] Squamous Epithelial Cell,Urine 3-4 High 0-2 [facility] Comment on above: Order Comment: Name Collection Type:: Clean-Voided Midstream Performed By: #### U RDS, UHCG, CUU, ADDONUAPLUS #### [facility] [address] [place] [address] Urobilinogen,Urine Normal Normal Normal [facility] Comment on above: Order Comment: Name Collection Type:: Clean-Voided Midstream Performed By: #### U RDS, UHCG, CUU, ADDONUAPLUS #### [facility] [address] [place] [address] [place] WBC,Urine 10-19 High 0-4 [facility] Comment on above: Order Comment: Name Collection Type:: Clean-Voided Midstream Performed By: #### U RDS, UHCG, CUU, ADDONUAPLUS #### [facility] [address] [place] [address] [place] Drug Screen,Urineon 12-20-19 Amphetamine Screen,Urine Negative Normal Negative [facility] Comment on above: Performed By: #### U RDS, UHCG, CUU, ADDONUAPLUS #### [facility] [address] [place] [address] [place] Barbiturate Screen,Urine Negative Normal Negative [facility] Comment on above: Performed By: #### U RDS, UHCG, CUU, ADDONUAPLUS #### [facility] [address] [place] [address] [place] Benzodiazepines Screen,Urine Negative Normal Negative [facility] Comment on above: Performed By: #### U RDS, UHCG, CUU, ADDONUAPLUS #### [address] Cannabinoid Screen,Urine Positive High Negative [facility] Comment on above: Result Comment: Thes e are unconfirmed results and should not be used for legal purposes. Drug Cut-Off Concentration: AMPH 1000 ng/mL SEEMA 200 ng/mL LAZ 200 ng/mL COCM 300 ng/mL OP 300 ng/mL PCP 25 ng/mL THC 20 ng/mL PERFORMED BY: [place] [address] PATHOLOGIST [employer] MALVIN MEDLEY M.D. Performed By: #### U RDS, UHCG, CUU, ADDONUAPLUS #### [address] Cocaine Screen,Urine Negative Normal Negative [facility] Comment on above: Performed By: #### U RDS, UHCG, CUU, ADDONUAPLUS #### [place] [address] [place] Opiate Screen,Urine Negative Normal Negative [facility] Comment on above: Performed By: #### U RDS, UHCG, CUU, ADDONUAPLUS #### [place] [address] [place] Phencyclidine Screen,Urine Negative Normal Negative [facility] Comment on above: Performed By: #### U RDS, UHCG, CUU, ADDONUAPLUS #### [place] [address] [place] ECG 12 lead ECGon 12-19-2022 ECG 12 lead ECG [facility] Main [place] [address] [id number] Electrocardiograph Report Signed Patient: Zuleika Wyatt MR#: [id number] : 1990 Acct:[id number] Age/Sex: 32 / F ADM Date: 12/19/22 Loc: Room: [address] [place] [address] Type: DIS INOo Attending Dr: Arden Orozco [...] ECGs available Confirmed by OSCAR POE DO ([id number]) on 12/19/2022 10:18:39 PM Referred By: Electronically Signed By:OSCAR POE DO Transcribed By: MUS Signed By Oscar Poe DO 12/19 Normal [facility] Electrolyteson 12-19-2022 Anion gap [Moles/Vol] 14.5 mmol/L Normal 6.0-15.0 [facility] Comment on above: Performed By: #### C BC, CREAT, GLU, LYTES, AST, ETOH, BARB, LIPASE, CK, BUN ####[facility] [id number] [place] [id number] [place] Chloride [Moles/Vol] 105 mmol/L Normal 98-107 [facility] Comment on above: Performed By: #### C BC, CREAT, GLU, LYTES, AST, ETOH, BARB, LIPASE, CK, BUN ####[facility] [place] [id number] [facility] CO2 [Moles/Vol] 20.0 mmol/L Low 21.0-31.0 [facility] Comment on above: Performed By: #### C BC, CREAT, GLU, LYTES, AST, ETOH, BARB, LIPASE, CK, BUN ####[place] [id number] [address] Potassium [Moles/Vol] 3.5 mmol/L Normal 3.5-5.1 [facility] Comment on above: Performed By: #### C BC, CREAT, GLU, LYTES, AST, ETOH, BARB, LIPASE, CK, BUN ####[place] [id number] [address] Sodium [Moles/Vol] 136 mmol/L Normal 136-145 [facility] Comment on above: Performed By: #### C BC, CREAT, GLU, LYTES, AST, ETOH, BARB, LIPASE, CK, BUN ####[place] [id number] [address] Ethyl Alcohol Profileon Ethanol [Mass/Vol] mg/dL Normal [facility] Comment on above: Performed By: #### C BC, CREAT, GLU, LYTES, AST, ETOH, BARB, LIPASE, CK, BUN ####[address] Percent Ethanol Not performed Normal [facility] Comment on above: Result Comment: PERF ORMED BY: [facility] [address] [place] [address] PATHOLOGIST [employer] MALVIN MEDLEY M.D. Performed By: #### C BC, CREAT, GLU, LYTES, AST, ETOH, BARB, LIPASE, CK, BUN ####[address] Glucoseon 12-19-2022 Glucose [Mass/Vol] 93 mg/dL Normal 70-100 [facility] Comment on above: Result Comment: [place] Glucose Reference Range is dependent on time and content of last meal. Glucose of more than 200 mg/dL in a nonstressed, ambulatory subject supports the diagnosis of Diabetes Mellitus. ADA recommended reference range Performed By: #### C BC, CREAT, GLU, LYTES, AST, ETOH, BARB, LIPASE, CK, BUN ####[facility] [id number] HCG ( test) IA.rapi d Ql (U)Ordered By: Oscar Poe on 12-19-2022 HCG ( test) Ql (U) Negative [facility] HCG,Qualitative Serumon 07-0 HCG,Qualitative Serum Negative Normal [facility] Comment on above: Result Comment: PERF ORMED BY: [facility] [address] [place] [address] PATHOLOGIST [employer] MALVIN MEDLEY M.D. Performed By: #### H CGQUAL #### [facility] [address] [place] [address] HCG,Urineon 12-19-2022 Beta HCG ( test) Ql (U) Negative Normal [facility] Comment on above: Order Comment: Name Collection Type:: Clean-Voided Midstream Result Comment: PERF ORMED BY: [place] [address] PATHOLOGIST [employer] MALVIN MEDLEY M.D. Performed By: #### U RDS, UHCG, CUU, ADDONUAPLUS #### [address] Ketones Auto test strip (U) [Mass/Vol]Ordered By: Oscar Poe on 12-19-2022 Ketones (U) [Mass/Vol] 1+ Negative [facility] - UrinalysisOrder ed By: Oscar Poe on 12-19-2022 Hyaline casts LM Ql (Urine sed) 0-8 [LPF] 0-8 [facility] Lipaseon 12-19-2022 Lipase [Catalytic activity/Vol] 29.0 U/L Normal 11.0-82.0 [facility] Comment on above: Result Comment: PERF ORMED BY: [place] [address] PATHOLOGIST [employer] MALVIN MEDLEY M.D. Performed By: #### C BC, CREAT, GLU, LYTES, AST, ETOH, BARB, LIPASE, CK, BUN ####[facility] [address] [place] [address] [facility] Nitrite Test strip Ql (U)Ord ered By: Oscar Poe on 12-19-2022 Nitrite Ql (U) Negative Negative [facility] Opiates [Presence] in Urine by Screen methodOrdered By: Oscar Poe on 12-19-2022 Opiates Screen Ql (U) Negative Negative Fir [facility] Phencyclidine Screen Ql (U)O rdered By: Oscar Poe on 12-19-2022 Phencyclidine Ql (U) Negative Negative [facility] Protein Auto test strip (U) [Mass/Vol]Ordered By: Oscar Poe on 12-19-2022 Protein (U) [Mass/Vol] Negative Negative [facility] Specific gravity Auto test s trip (U) [Rel density]Ordered By: Oscar Poe on 12-19-2022 Specific gravity (U) [Rel density] 1.025 1.001-1.03 0 [facility] Squamous epithelial cells de tection in urine sediment by light microscopyOrdered By: Oscar Poe on 12-19-2022 Epithelial cells.squamous LM Ql (Urine sed) 3-4 [HPF] 0-2 [facility] Type and Screenon 12-19-2022 ABO and Rh group Nom (Bld) Blood group A Rh(D) positive [facility] Comment on above: Result Comment: PERF ORMED BY: [facility] [address] [place] [address] PATHOLOGIST [employer] MALVIN MEDLEY M.D. Urine Cultureon 12-19-2022 Bacteria identified Cx Nom (U) >100,000 colonies/ml mixed bacterial skin contaminants 2 Days PERFORMED BY: [facility] [address] [place] [address] PATHOLOGIST [employer] MALVIN MEDLEY M.D. [facility] Comment on above: Performed By: #### U RDS, UHCG, CUU, ADDONUAPLUS ####[facility] [address] [place] [address] [facility] Urine bacteria detection by automated methodOrdered By: Oscar Poe on 12-19-2022 Bacteria Auto Ql (U) None seen None Seen [facility] Urine clarity by refractomet ry automatedOrdered By: Oscar Poe on 12-19-2022 Clarity Refractometry automated (U) Clear Clear [facility] Urine culture routineOrdered By: Oscar Poe on 12-19-2022 Bacteria identified Cx Nom (U) 2 Days [facility] Urine glucose measurement by automated test strip (mass/volume)Ordered By: Oscar Poe on 12-19-2022 Glucose Auto test strip (U) [Mass/Vol] Normal mg/dL Normal [facility] Urine hemoglobin detection b y automated test stripOrdered By: Oscar Poe on 12-19-2022 Hemoglobin Auto test strip Ql (U) Negative Negative [facility] Urine leukocyte esterase det ection by automated test stripOrdered By: Oscar Poe on 12-19-2022 Leukocyte esterase Auto test strip Ql (U) 2+ Negative [facility] Urobilinogen Auto test strip (U) [Mass/Vol]Ordered By: Oscar Poe on 12-19-2022 Urobilinogen (U) [Mass/Vol] Normal mg/dL Normal [facility] XR knee BI 2Von 12-19-2022 XR knee BI 2V [facility] [place] [address] XRay Report Signed Patient: Zuleika Wyatt MR#: [id number] : 1990 Acct:[id number] Age/Sex: 32 / F ADM Date: 12/19/22 Loc: Room: [address] [place] [address] Type: ADM INOo Attending Dr: Arden Orozco DO Copies to: DO Arden Jefferson DO Ordering Provider: Oscar Poe DO Date of Service: 12/18/22 XR/XR knee BI 2V: f ([id number]) XR/XR chest 1V portable: TRAUMATIC INJURY ([id number]) XR/XR pelvis 1-2V: f ([id number]) XR/XR foot LT 2V: f CLINICAL DATA: [...] Adela Mahan M.D.12/19/2022 10:41 AM Dictation Location: [place] [address] Transcribed By: [facility] 12/19/22 1041 Dictated By: Adela Mahan MD 12/19/22 1036 Signed By: 12/19/22 1041 Normal [facility] pH Auto test strip (U)Ordere d By: Oscar Poe on 12-19-2022 pH (U) 5.5 [pH] 5.0-9.0 [facility] Amylase [Enzymatic activity/ volume] in Serum or PlasmaOrdered By: Oscar Poe on 12-18-2022 Amylase [Catalytic activity/Vol] 35 U/L 29-103 [facility] Aspartate aminotransferase [ Enzymatic activity/volume] in Serum or PlasmaOrdered By: Oscar Poe on 12-18-2022 AST [Catalytic activity/Vol] 26 U/L 13-39 [facility] Basophils Auto (Bld) [#/Vol] Ordered By: Oscar Poe on 12-18-2022 Basophils (Bld) [#/Vol] 0.1 10*3/uL 0.0-0.2 [facility] Basophils/100 WBC Auto (Bld) Ordered By: Oscar Poe on 12-18-2022 Basophils/100 WBC (Bld) 0.7 % . [facility] Carbon dioxide, total [Moles /volume] in Serum or PlasmaOrdered By: Oscar Poe on 12-18-2022 CO2 [Moles/Vol] 20.0 mmol/L 21.0-31.0 [facility] Chloride [Moles/volume] in S gwendolyn or PlasmaOrdered By: Oscar Poe on 12-18-2022 Chloride [Moles/Vol] 105 mmol/L 98-107 [facility] Choriogonadotropin.beta subu nit [Units/volume] in Serum or PlasmaOrdered By: Oscar Poe on 12-18-2022 HCG.beta subunit Qn Negative [facility] Creatine kinase [Enzymatic a ctivity/volume] in Serum or PlasmaOrdered By: Oscar Poe on 12-18-2022 CK [Catalytic activity/Vol] 50 U/L 30-223 [facility] Creatinine [Mass/volume] in Serum or PlasmaOrdered By: Oscar Poe on 12-18-2022 Creatinine [Mass/Vol] 0.84 mg/dL 0.60-1.20 [facility] Eosinophils Auto (Bld) [#/Vo l]Ordered By: Oscar Poe on 12-18-2022 Eosinophils (Bld) [#/Vol] 0.0 10*3/uL 0.0-0.45 [facility] Eosinophils/100 WBC Auto (Bl d)Ordered By: Oscar Poe on 12-18-2022 Eosinophils/100 WBC (Bld) 0.2 % . [facility] Erythrocyte distribution wid th Auto (RBC) [Ratio]Ordered By: Oscar Poe on 12-18-2022 Erythrocyte distribution width (RBC) [Ratio] 14.4 % 11.9-15.3 [facility] Ethanol [Mass/volume] in Ser um or PlasmaOrdered By: Oscar Poe on 12-18-2022 Ethanol [Mass/Vol] mg/dL [facility] Ethanol [Mass/Vol] TNP [facility] Comment on above: Test not performed Glucose [Mass/volume] in Ser um or PlasmaOrdered By: Oscar Poe on 12-18-2022 Glucose [Mass/Vol] 93 mg/dL 70-100 [facility] Comment on above: ADA recommended refe rence rangeRandom Glucose Reference Range is dependent on time and content of last meal. Glucose of more than 200 mg/dL in a nonstressed, ambulatory subject supports the diagnosis of Diabetes Mellitus. Hematocrit Auto (Bld) [Volum e fraction]Ordered By: Oscar Poe on 12-18-2022 Hematocrit (Bld) [Volume fraction] 36.2 % 34.0-46.4 [facility] Hemoglobin [Mass/volume] in BloodOrdered By: Oscar Poe on 12-18-2022 Hemoglobin (Bld) [Mass/Vol] 11.9 g/dL 11.8-15.4 [facility] Leukocytes [#/volume] correc osmel for nucleated erythrocytes in Blood by Automated counOrdered By: Oscar Poe on 12-18-2022 WBC corrected for nucl RBC Auto (Bld) [#/Vol] 10.3 10*3/uL 3.8-11.6 [facility] Lipase [Enzymatic activity/v olume] in Serum or PlasmaOrdered By: Oscar Poe on 12-18-2022 Lipase [Catalytic activity/Vol] 29.0 U/L 11.0-82.0 [facility] Lymphocytes Auto (Bld) [#/Vo l]Ordered By: Oscar Poe on 12-18-2022 Lymphocytes (Bld) [#/Vol] 2.2 10*3/uL 1.00-4.8 [facility] Lymphocytes/100 WBC Auto (Bl d)Ordered By: Oscar Poe on 12-18-2022 Lymphocytes/100 WBC (Bld) 21.8 % . [facility] MCH Auto (RBC) [Entitic mass ]Ordered By: Oscar Poe on 12-18-2022 MCH (RBC) [Entitic mass] 26.9 pg 24.7-34.3 [facility] MCHC Auto (RBC) [Mass/Vol]Or dered By: Oscar Poe on 12-18-2022 MCHC (RBC) [Mass/Vol] 32.8 g/dL 32.0-35.0 [facility] MCV Auto (RBC) [Entitic vol] Ordered By: Oscar Poe on 12-18-2022 MCV (RBC) [Entitic vol] 82.1 fL 80-100 [facility] Monocyte distribution width [Entitic volume] in Blood by AutomatedOrdered By: Oscar Poe on 12-18-2022 Monocyte distribution width Auto (Bld) [Entitic vol] 22.19 % 0.00-20.00 [facility] Comment on above: For adults in ED, MD W > 20.0 may be associated with a higher risk of sepsis during the first 12 hrs of hospital admission Monocytes Auto (Bld) [#/Vol] Ordered By: Oscar Poe on 12-18-2022 Monocytes (Bld) [#/Vol] 0.8 10*3/uL 0.0-0.8 [facility] Monocytes/100 WBC Auto (Bld) Ordered By: Oscar Poe on 12-18-2022 Monocytes/100 WBC (Bld) 7.4 % . [facility] Neutrophils Auto (Bld) [#/Vo l]Ordered By: Oscar Poe on 12-18-2022 Neutrophils (Bld) [#/Vol] 7.2 10*3/uL 1.8-7.7 [facility] Neutrophils/100 WBC Auto (Bl d)Ordered By: Oscar Poe on 12-18-2022 Neutrophils/100 WBC (Bld) 69.9 % . [facility] No Panel InformationOrdered By: Oscar Poe on 12-18-2022 Estimated GFR (CKD-EPI) > 60.0 mL/Min [facility] Creatinine Clearance (Chem 98.76 [facility] Nucleated erythrocytes [Pres ence] in Blood by Automated countOrdered By: Oscar Poe on 12-18-2022 Nucleated RBC Auto Ql (Bld) 0.1 /100{WBC} 0-0.5 [facility] Platelet mean volume Auto (B ld) [Entitic vol]Ordered By: Oscar Poe on 12-18-2022 Platelet mean volume (Bld) [Entitic vol] 8.1 fL 6.3-10.7 [facility] Platelets Auto (Bld) [#/Vol] Ordered By: Oscar Poe on 12-18-2022 Platelets (Bld) [#/Vol] 223 10*3/uL 150-450 [facility] Potassium [Moles/volume] in Serum or PlasmaOrdered By: Oscar Poe on 12-18-2022 Potassium [Moles/Vol] 3.5 mmol/L 3.5-5.1 [facility] RBC Auto (Bld) [#/Vol]Ordere d By: Oscar Poe on 12-18-2022 RBC (Bld) [#/Vol] 4.42 10*6/uL 3.60-5.00 [facility] Serum or plasma anion gap de terminationOrdered By: Oscar Poe on 12-18-2022 Anion gap [Moles/Vol] 14.5 mmol/L 6.0-15.0 [facility] Sodium [Moles/volume] in Ser um or PlasmaOrdered By: Oscar Poe on 12-18-2022 Sodium [Moles/Vol] 136 mmol/L 136-145 [facility] Urea nitrogen [Mass/volume] in Serum or PlasmaOrdered By: Oscar Poe on 12-18-2022 Urea nitrogen [Mass/Vol] 21 mg/dL 7-25 [facility] WBC Auto (Bld) [#/Vol]Ordere d By: Oscar Poe on 12-18-2022 WBC (Bld) [#/Vol] 10.3 10*3/uL 3.8-11.6 [facility] PRBC LEUKOREDUCEDon 07-14-19 23 ABO and Rh group Nom (Bld) Cross Match Result Compatible Unit Blood Type A Pos Unit Number [id number] Status Information Released Specimen Exp Date Product ID Red Blood Cells Product Code [id number] Cross Match Result Compatible Unit Blood Type A Pos Unit Number [id number] Status Information Transfused Product ID Red Blood Cells Product Code [id number] Normal [facility] Comment on above: Performed By: #### R UBIGG #### [facility] [address] [place] [address] Dr. Juan Antonio Ibarra CBC AUTO DIFFon 07-07-2022 BASO # 0.0 103/ul Normal 0.0-0.1 [facility] Comment on above: Performed By: #### A 1C #### [facility] [address] [place] [address] Dr. Juan Antonio Ibarra Basophils/100 WBC (Bld) 0.3 % Normal 0.2-2.0 [facility] Comment on above: Performed By: #### A 1C #### [facility] [address] [place] [address] Dr. Juan Antonio Ibarra EO # 0.1 103/ul Normal 0.0-0.[address] [facility] Comment on above: Performed By: #### A 1C #### [facility] [address] [place] [address] Dr. Juan Antonio Ibarra Eosinophils/100 WBC (Bld) 0.9 % Normal 0.9-7.0 [facility] Comment on above: Performed By: #### A 1C #### [facility] [address] [place] [address] Dr. Juan Antonio Ibarra Erythrocyte distribution width (RBC) [Ratio] 14.5 % Normal 11.0-15.0 [facility] Comment on above: Performed By: #### A 1C #### [facility] [address] [place] [address] Dr. Juan Antonio Ibarra Hematocrit (Bld) [Volume fraction] 22.5 % Critically low 36.0-48.0 [facility] Comment on above: Performed By: #### A 1C #### [facility] [address] [place] [address] Dr. Juan Antonio Ibarra Hemoglobin (Bld) [Mass/Vol] 7.9 g/dL Critically low 12.0-16.0 [facility] Comment on above: Performed By: #### A 1C #### [facility] [address] [place] [address] Dr. Juan Antonio Ibarra IG # 0.10 10e3/ul Critically high 0.00-0.03 [facility] Comment on above: Performed By: #### A 1C #### [facility] [address] [place] [address] Dr. Juan Antonio Ibarra IG % 0.9 % Critically high 0.0-0.5 [facility] Comment on above: Performed By: #### A 1C #### [facility] [address] [place] [address] Dr. Juan Antonio Ibarra LYMPH # 1.6 103/ul Normal 1.2-3.8 [facility] Comment on above: Performed By: #### A 1C #### [facility] [address] [place] [address] Dr. Juan Antonio Ibarra Lymphocytes/100 WBC (Bld) 14.0 % Critically low 20.5-60.0 [facility] Comment on above: Performed By: #### A 1C #### [facility] [address] [place] [address] Dr. Juan Antonio Ibarra MANUAL DIFF REQ NO Normal [facility] Comment on above: Performed By: #### A 1C #### [facility] [address] [place] [address] Dr. Juan Antonio Ibarra MCH (RBC) [Entitic mass] 26.4 pg Critically low 26.7-34.0 [facility] Comment on above: Performed By: #### A 1C #### [facility] [address] [place] [address] Dr. Juan Antonio Ibarra MCHC (RBC) [Mass/Vol] 35.1 g/dL Normal 29.9-35.2 [facility] Comment on above: Performed By: #### A 1C #### [facility] [address] [place] [address] Dr. Juan Antonio Ibarra MCV (RBC) [Entitic vol] 75.3 fL Critically low 81.0-99.0 [facility] Comment on above: Performed By: #### A 1C #### [facility] [address] [place] [address] Dr. Juan Antonio Ibarra MONO # 0.7 103/ul Normal 0.3-0.8 [facility] Comment on above: Performed By: #### A 1C #### [facility] [address] [place] [address] Dr. Juan Antonio Ibarra Monocytes/100 WBC (Bld) 6.2 % Normal 1.7-12.0 [facility] Comment on above: Performed By: #### A 1C #### [facility] [address] [place] [address] Dr. Juan Antonio Ibarra NEUT # 9.1 103/ul Critically high 1.4-6.5 [facility] Comment on above: Performed By: #### A 1C #### [facility] [address] [place] [address] Dr. Juan Antonio Ibarra Neutrophils/100 WBC (Bld) 77.7 % Critically high 43.0-75.0 [facility] Comment on above: Performed By: #### A 1C #### [facility] [address] [place] [address] Dr. Juan Antonio Ibarra Platelet mean volume (Bld) [Entitic vol] 9.2 fL Critically low 9.5-13.5 [facility] Comment on above: Performed By: #### A 1C #### [facility] [address] [place] [address] Dr. Juan Antonio Ibarra PLT 143 103/ul Critically low 150-450 [facility] Comment on above: Performed By: #### A 1C #### [facility] Laboratory [address] [place] [address] Dr. Juan Antonio Ibarra RBC 2.99 106/ul Critically low 4.20-5.40 [facility] Comment on above: Performed By: #### A 1C #### [facility] Laboratory [address] [place] [address] Dr. Juan Antonio Ibarra WBC 11.7 103/ul Critically high 4.0-11.0 [facility] Comment on above: Performed By: #### A 1C #### [facility] Laboratory [address] [place] [address] Dr. Juan Antonio Ibarra CBC AUTO DIFFon 07-06-2022 BASO # 0.0 103/ul Normal 0.0-0.1 [facility] Comment on above: Performed By: #### A 1C #### [facility] Laboratory [address] [place] [address] Dr. Juan Antonio Ibarra Basophils/100 WBC (Bld) 0.3 % Normal 0.2-2.0 [facility] Comment on above: Performed By: #### A 1C #### [facility] Laboratory [address] [place] [address] Dr. Juan Antonio Ibarra EO # 0.1 103/ul Normal 0.0-0.7 [facility] Comment on above: Performed By: #### A 1C #### [facility] Laboratory [address] [place] [address] Dr. Juan Antonio Ibarra Eosinophils/100 WBC (Bld) 0.8 % Critically low 0.9-7.0 [facility] Comment on above: Performed By: #### A 1C #### [facility] Laboratory [address] [place] [address] Dr. Juan Antonio Ibarra Erythrocyte distribution width (RBC) [Ratio] 14.3 % Normal 11.0-15.0 [facility] Comment on above: Performed By: #### A 1C #### [facility] Laboratory [address] [place] [address] Dr. Juan Antonio Ibarra Hematocrit (Bld) [Volume fraction] 23.0 % Critically low 36.0-48.0 [facility] Comment on above: Performed By: #### A 1C #### [facility] Laboratory [address] [place] [address] Dr. Juan Antonio Ibarra Hemoglobin (Bld) [Mass/Vol] 7.5 g/dL Critically low 12.0-16.0 [facility] Comment on above: Performed By: #### A 1C #### [facility] Laboratory [address] [place] [address] Dr. Juan Antonio Ibarra IG # 0.07 10e3/ul Critically high 0.00-0.03 [facility] Comment on above: Performed By: #### A 1C #### [facility] Laboratory [address] [place] [address] Dr. Juan Antonio Ibarra IG % 0.6 % Critically high 0.0-0.5 [facility] Comment on above: Performed By: #### A 1C #### [facility] Laboratory [address] [place] [address] Dr. Juan Antonio Ibarra LYMPH # 2.1 103/ul Normal 1.2-3.[address] [facility] Comment on above: Performed By: #### A 1C #### [facility] Laboratory [address] [place] [address] Dr. Juan Antonio Ibarra Lymphocytes/100 WBC (Bld) 18.8 % Critically low 20.5-60.0 [facility] Comment on above: Performed By: #### A 1C #### [facility] Laboratory [address] [place] [address] Dr. Juan Antonio Ibarra MANUAL DIFF REQ NO Normal [facility] Comment on above: Performed By: #### A 1C #### [facility] Laboratory [address] [place] [address] Dr. Juan Antonio Ibarra MCH (RBC) [Entitic mass] 26.0 pg Critically low 26.7-34.0 [facility] Comment on above: Performed By: #### A 1C #### [facility] Laboratory [address] [place] [address] Dr. Juan Antonio Ibarra MCHC (RBC) [Mass/Vol] 32.6 g/dL Normal 29.9-35.2 [facility] Comment on above: Performed By: #### A 1C #### [facility] Laboratory [address] [place] [address] Dr. Juan Antonio Ibarra MCV (RBC) [Entitic vol] 79.9 fL Critically low 81.0-99.0 [facility] Comment on above: Performed By: #### A 1C #### [facility] Laboratory [address] [place] [address] Dr. Juan Antonio Ibarra MONO # 0.7 103/ul Normal 0.3-0.8 [facility] Comment on above: Performed By: #### A 1C #### [facility] Laboratory [address] [place] [address] Dr. Juan Antonio Ibarra Monocytes/100 WBC (Bld) 6.6 % Normal 1.7-12.[address] [facility] Comment on above: Performed By: #### A 1C #### [facility] Laboratory [address] [place] [address] Dr. Juan Antonio Ibarra NEUT # 8.2 103/ul Critically high 1.4-6.5 [facility] Comment on above: Performed By: #### A 1C #### [facility] [address] [place] [address] Dr. Juan Antonio Ibarra Neutrophils/100 WBC (Bld) 72.9 % Normal 43.0-75.0 [facility] Comment on above: Performed By: #### A 1C #### [facility] [address] [place] [address] Dr. Juan Antonio Ibarra Platelet mean volume (Bld) [Entitic vol] 9.8 fL Normal 9.5-13.5 [facility] Comment on above: Performed By: #### A 1C #### [facility] [address] [place] [address] Dr. Juan Antonio Ibarra PLT 151 103/ul Normal 150-450 [facility] Comment on above: Performed By: #### A 1C #### [facility] [address] [place] [address] Dr. Juan Antonio Ibarra RBC 2.88 106/ul Critically low 4.20-5.40 [facility] Comment on above: Performed By: #### A 1C #### [facility] [address] [place] [address] Dr. Juan Antonio Ibarra WBC 11.3 103/ul Critically high 4.0-11.0 [facility] Comment on above: Performed By: #### A 1C #### [facility] [address] [place] [address] Dr. Juan Antonio Ibarra CBC AUTO DIFFon 07-05-2022 BASO # 0.0 103/ul Normal 0.0-0.1 [facility] Comment on above: Performed By: #### R PRQ #### [facility] [address] [place] [address] Dr. Juan Antonio Ibarra Basophils/100 WBC (Bld) 0.2 % Normal 0.2-2.[address] [facility] Comment on above: Performed By: #### R PRQ #### [facility] Laboratory [address] [place] [address] Dr. Juan Antonio Ibarra EO # 0.0 103/ul Normal 0.0-0.[address] [facility] Comment on above: Performed By: #### R PRQ #### [facility] [address] [place] [address] Dr. Juan Antonio Ibarra Eosinophils/100 WBC (Bld) 0.4 % Critically low 0.9-7.0 [facility] Comment on above: Performed By: #### R PRQ #### [facility] [address] [place] [address] Dr. Juan Antonio Ibarra Erythrocyte distribution width (RBC) [Ratio] 14.2 % Normal 11.0-15.0 [facility] Comment on above: Performed By: #### R PRQ #### [facility] [address] [place] [address] Dr. Juan Antonio Ibarra Hematocrit (Bld) [Volume fraction] 31.0 % Critically low 36.0-48.0 [facility] Comment on above: Performed By: #### R PRQ #### [facility] [address] [place] [address] Dr. Juan Antonio Ibarra Hemoglobin (Bld) [Mass/Vol] 10.1 g/dL Critically low 12.0-16.0 [facility] Comment on above: Performed By: #### R PRQ #### [facility] [address] [place] [address] Dr. Juan Antonio Ibarra IG # 0.10 10e3/ul Critically high 0.00-0.03 [facility] Comment on above: Performed By: #### R PRQ #### [facility] [address] [place] [address] Dr. Juan Antonio Ibarra IG % 1.1 % Critically high 0.0-0.5 [facility] Comment on above: Performed By: #### R PRQ #### [facility] [address] [place] [address] Dr. Juan Antonio Ibarra LYMPH # 1.6 103/ul Normal 1.2-3.[address] [facility] Comment on above: Performed By: #### R PRQ #### [facility] [address] [place] [address] Dr. Juan Antonio Ibarra Lymphocytes/100 WBC (Bld) 17.5 % Critically low 20.5-60.0 [facility] Comment on above: Performed By: #### R PRQ #### [facility] [address] [place] [address] Dr. Juan Antonio Ibarra MANUAL DIFF REQ NO Normal [facility] Comment on above: Performed By: #### R PRQ #### [facility] [address] [place] [address] Dr. Juan Antonio Ibarra MCH (RBC) [Entitic mass] 25.8 pg Critically low 26.7-34.0 [facility] Comment on above: Performed By: #### R PRQ #### [facility] [address] [place] [address] Dr. Juan Antonio Ibarra MCHC (RBC) [Mass/Vol] 32.6 g/dL Normal 29.9-35.2 [facility] Comment on above: Performed By: #### R PRQ #### [facility] [address] [place] [address] Dr. Juan Antonio Ibarra MCV (RBC) [Entitic vol] 79.3 fL Critically low 81.0-99.0 [facility] Comment on above: Performed By: #### R PRQ #### [facility] [address] [place] [address] Dr. Juan Antonio Ibarra MONO # 0.7 103/ul Normal 0.3-0.8 [facility] Comment on above: Performed By: #### R PRQ #### [facility] [address] [place] [address] Dr. Juan Antonio Ibarra Monocytes/100 WBC (Bld) 8.1 % Normal 1.7-12.0 [facility] Comment on above: Performed By: #### R PRQ #### [facility] [address] [place] [address] Dr. Juan Antonio Ibarra NEUT # 6.7 103/ul Critically high 1.4-6.[address] [facility] Comment on above: Performed By: #### R PRQ #### [facility] [address] [place] [address] Dr. Juan Antonio Ibarra Neutrophils/100 WBC (Bld) 72.7 % Normal 43.0-75.[address] [facility] Comment on above: Performed By: #### R PRQ #### [facility] [address] [place] [address] Dr. Juan Antonio Ibarra Platelet mean volume (Bld) [Entitic vol] 10.1 fL Normal 9.5-13.5 [facility] Comment on above: Performed By: #### R PRQ #### [facility] [address] [place] [address] Dr. Juan Antonio Ibarra PLT 202 103/ul Normal 150-[address] [facility] Comment on above: Performed By: #### R PRQ #### [facility] Laboratory [address] [address] [address] Juan Antonio Ibarra RBC 3.91 106/ul Critically low 4.20-5.40 [facility] Comment on above: Performed By: #### R PRQ #### [facility] [address] [place] [address] Dr. Juan Antonio Ibarra WBC 9.2 103/ul Normal 4.0-11.0 [facility] Comment on above: Performed By: #### R PRQ #### [facility] [address] [place] [address] Dr. Juan Antonio Ibarra DRUG SCREEN RAPID (URINE)on 07-05-2022 AMP Negative Normal NEGATIVE [facility] Comment on above: Performed By: #### A 1C #### [facility] [address] [place] [address] Dr. Juan Antonio Ibarra BAR Negative Normal NEGATIVE [facility] Comment on above: Performed By: #### A 1C #### [facility] [address] [place] [address] Dr. Juan Antonio Ibarra BUP Negative Normal NEGATIVE [facility] Comment on above: Performed By: #### A 1C #### [facility] [address] [place] [address] Dr. Juan Antonio Ibarra BZO Negative Normal NEGATIVE [facility] Comment on above: Performed By: #### A 1C #### [facility] [address] [place] [address] Dr. Juan Antonio Ibarra PARAM Negative Normal NEGATIVE [facility] Comment on above: Performed By: #### A 1C #### [facility] [address] [place] [address] Dr. Juan Antonio Ibarra CUT-OFFS SEE BELOW Normal [facility] Comment on above: Result Comment: [...] By: #### A 1C #### [facility] [address] [place] [address] Dr. Juan Antonio Ibarra DRUG CUT HEADER DRUG CLASS TEST SYST EM CUT-OFF CONCENTRATIONS ARE FOLLOWS: Normal [facility] Comment on above: Performed By: #### A 1C #### [facility] [address] [place] [address] Dr. Juan Antonio Ibarra mAMP Negative Normal NEGATIVE [facility] Comment on above: Performed By: #### A 1C #### [facility] [address] [place] [address] Dr. Juan Antonio Ibarra MTD Negative Normal NEGATIVE [facility] Comment on above: Performed By: #### A 1C #### [facility] [address] [place] [address] Dr. Juan Antonio Ibarra OPI Negative Normal NEGATIVE [facility] Comment on above: Performed By: #### A 1C #### [facility] [address] [place] [address] Dr. Juan Antonio Ibarra OXY Negative Normal NEGATIVE [facility] Comment on above: Performed By: #### A 1C #### [facility] [address] [place] [address] Dr. Juan Antonio Ibarra PCP Negative Normal NEGATIVE [facility] Comment on above: Performed By: #### A 1C #### [facility] [address] [address] [address] Juan Antonio Ibarra PPX Negative Normal NEGATIVE [facility] Comment on above: Performed By: #### A 1C #### [facility] [address] [address] [address] Juan Antonio Ibarra TCA Negative Normal NEGATIVE [facility] Comment on above: Performed By: #### A 1C #### [facility] [address] [address] [address] Juan Antonio Ibarra THC Negative Normal NEGATIVE [facility] Comment on above: Performed By: #### A 1C #### [facility] [address] [place] [address] Dr. Juan Antonio Ibarra TYPE AND SCREENon 07-05-2022 TYPE AND SCREEN Negative Normal [facility] Comment on above: Performed By: #### T NS #### [facility] Laboratory [address] [place] [address] Dr. Juan Antonio Ibarra US PREG BIOPHY [...] by: FELECIA GOLDMAN Date: 2022-06-28 15:29 Normal [facility] US PREG BIOPHY W NON [...] Date: 2022-06-21 17:[address] [facility] US PREG GROWTHon 06-21-2022 US [...] Date: 2022-06-21 13:37 Normal [facility] CULTURE URINEon 06-16-2022 CULTURE URINE Culture Observations : LIGHT GROWTH OF MIXED GENITAL ALONSO. NO POTENTIAL PATHOGENS SEEN. Normal [facility] Comment on above: Performed By: #### U RCX #### [facility] Laboratory [address] [place] [address] Dr. Juan Antonio Ibarra UA (CLEAN/CATCH) PORTABLE TRACK CREW CHIEF/MICRO I F IND.on 06-16-2022 Bilirubin Ql (U) Negative Normal NEGATIVE [facility] Comment on above: Performed By: #### U MICRO, UACSIND #### [facility] [address] [place] [address] Dr. Juan Antonio Ibarra Clarity (U) CLEAR Normal CLEAR [facility] Comment on above: Performed By: #### U MICRO, UACSIND #### [facility] Laboratory [address] [place], [place] [id number] Dr. Juan Antonio Ibarra Color (U) LT. YELLOW Normal YELLOW [facility] Comment on above: Performed By: #### U MICRO, UACSIND #### [facility] [address] [address] [address] Juan Antonio Ibarra Glucose Ql (U) Negative Normal NEGATIVE [facility] Comment on above: Performed By: #### U MICRO, UACSIND #### [facility] [address] [address] [address] Juan Antonio Ibarra Hemoglobin Ql (U) Negative Normal NEGATIVE [facility] Comment on above: Performed By: #### U MICRO, UACSIND #### [facility] [address] [place] [address] Dr. Juan Antonio Ibarra Ketones Ql (U) Negative Normal NEGATIVE [facility] Comment on above: Performed By: #### U MICRO, UACSIND #### [facility] [address] [place] [address] Dr. Juan Antonio Ibarra LEUKOCYTES MODERATE Abnormal NEGATIVE [facility] Comment on above: Performed By: #### U MICRO, UACSIND #### [facility] [address] [place] [address] Dr. Juan Antonio Ibarra Nitrite Ql (U) Negative Normal NEGATIVE [facility] Comment on above: Performed By: #### U MICRO, UACSIND #### [facility] [address] [place] [address] Dr. Juan Antonio Ibarra pH (U) 6.0 [pH] Normal 5-[address] [facility] Comment on above: Performed By: #### U MICRO, UACSIND #### [facility] [address] [place] [address] Dr. Juan Antonio Ibarra SPEC GRAVITY 1.020 Normal 1.005-<=1. [address] [facility] Comment on above: Performed By: #### U MICRO, UACSIND #### [facility] [address] [place] [address] Dr. Juan Antonio Ibarra UA PROTEIN Negative Normal NEGATIVE/ TRACE [facility] Comment on above: Performed By: #### U MICRO, UACSIND #### [facility] [address] [place] [address] Dr. Juan Antonio Ibarra UR MICRO IND INDICATED Normal [facility] Comment on above: Performed By: #### U MICRO, UACSIND #### [facility] Laboratory [address] [address] [address] Juan Antonio Ibarra Urobilinogen Qn (U) 1.0 {Pamela'U}/dL Normal 0.2 - 1. [address] [facility] Comment on above: Performed By: #### U MICRO, UACSIND #### [facility] Laboratory [address] [place] [address] Dr. Juan Antonio Ibarra URINE MICROSCOPIC ONLYon BACTERIA SMALL Abnormal NONE SEEN [facility] Comment on above: Performed By: #### U MICRO, UACSIND #### [facility] [address] [place] [address] Dr. Juan Antonio Ibarra Bacteria identified Cx Nom (U) INDICATED Normal [facility] Comment on above: Performed By: #### U MICRO, UACSIND #### [facility] [address] [place] [address] Dr. Juan Antonio Ibarra CAST NONE SEEN Normal NONE SEEN [facility] Comment on above: Performed By: #### U MICRO, UACSIND #### [facility] Laboratory [address] [place] [address] Dr. Juan Antonio Ibarra Crystals LM Nom (Urine sed) NONE SEEN Normal NONE SEEN [facility] Comment on above: Performed By: #### U MICRO, UACSIND #### [facility] Laboratory [address] [place] [address] Dr. Juan Antonio Ibarra Epithelial cells LM Ql (Urine sed) RARE Normal NONE SEEN /RARE [facility] Comment on above: Performed By: #### U MICRO, UACSIND #### [facility] Laboratory [address] [place] [address] Dr. Juan Antonio Ibarra MUCOUS NONE SEEN Normal NONE SEEN [facility] Comment on above: Performed By: #### U MICRO, UACSIND #### [facility] [address] [place] [address] Dr. Juan Antonio Ibarra RBC NONE SEEN Abnormal 0-[address] [facility] Comment on above: Performed By: #### U MICRO, UACSIND #### [facility] [address] [address] [address] Juan Antonio Ibarra WBC 2-5 Abnormal NONE SEEN [facility] Comment on above: Performed By: #### U MICRO, UACSIND #### [facility] [address] [place], [place] [address] Dr. Juan Antonio Ibarra GROUP B STREP CULTUREon 05-18 S. agalactiae Ag Ql (Unsp spec) Culture Observations: NEGATIVE FOR GROUP B STREPTOCOCCUS. Normal [facility] Comment on above: Performed By: #### G BSCX #### [facility] Laboratory [address] [address] [address] Juan Antonio Ibarra US PREG BIOPHY [...] GAMALIEL CRUMP Date: 2022-06-14 16:[address] [facility] US PREG BIOPHY W NON [...] by: FELECIA GOLDMAN Date: 2022-06-07 16:42 Normal [facility] US PREG BIOPHY W NON [...] by: FELECIA GOLDMAN Date: 2022-06-04 17:11 Normal [facility] US PREG BIOPHY W NON [...] by: FELECIA GOLDMAN Date: 2022-06-04 16:23 Normal [facility] US PREG BIOPHY W NON [...] by: GAMALIEL CRUMP Date: 2022-05-31 18:39 Normal [facility] US PREG BIOPHY W NON [...] Date: 2022-05-24 16:[address] [facility] US PREG GROWTHon 05-24-2022 US [...] Date: 2022-05-24 16:[address] [facility] GLUCOSE - 1HRon 04-04-2022 Glucose [Mass/Vol] 101 mg/dL Normal 74-[address] [facility] Comment on above: Performed By: #### R PRQ #### [facility] Laboratory [address] [place] [address] [id number] [address] Juan Antonio Ibarra HEMOGRAM AND PLATELon 2021 Hematocrit (Bld) [Volume fraction] 33.5 % Critically low 36.0-48.0 [facility] Comment on above: Performed By: #### A 1C #### [facility] [address] [place] [address] Dr. Juan Antonio Ibarra Hemoglobin (Bld) [Mass/Vol] 10.7 g/dL Critically low 12.0-16.[address] [facility] Comment on above: Performed By: #### A 1C #### [facility] Laboratory [address] [place] [address] Dr. Juan Antonio Ibarra MCH (RBC) [Entitic mass] 29.3 pg Normal 26.7-34.[address] [facility] Comment on above: Performed By: #### A 1C #### [facility] [address] [place] [address] Dr. Juan Antonio Ibarra MCHC (RBC) [Mass/Vol] 31.9 g/dL Normal 29.9-35.[address] [facility] Comment on above: Performed By: #### A 1C #### [facility] [address] [place] [id number] Dr. Juan Antonio Ibarra MCV (RBC) [Entitic vol] 91.8 fL Normal 81.0-99.[address] [facility] Comment on above: Performed By: #### A 1C #### [facility] [address] [place] [address] Dr. Juan Antonio Ibarra PLT 179 103/ul Normal 150-[address] [facility] Comment on above: Performed By: #### A 1C #### [facility] [address] [place] [address] Dr. Juan Antonio Ibarra RBC 3.65 106/ul Critically low 4.20-5.[address] [facility] Comment on above: Performed By: #### A 1C #### [facility] [address] [place] [address] Dr. Juan Antonio Ibarra WBC 9.9 103/ul Normal 4.0-11.[address] [facility] Comment on above: Performed By: #### A 1C #### [facility] [address] [place] [address] Dr. Juan Antonio Ibarra US PREG REEVAL [...] by: FELECIA GOLDMAN Date: 2022-03-20 20:55 Normal [facility] US PREG ANATOMY SINGLEon US [...] by: FELECIA GOLDMAN Date: 2022-02-22 16:46 Normal [facility] Coding Summaryon 02-14-2022 Coding Summary HTMLBase 64 MjpcmktmFBs6sOx+PGhlYWQ+PE 3EJYKoR29utPPuuR9OF1xCCD3X COWOLJQATY6XOH6kjAO8JTkpU3 VybiAv QpttoHDeCZ42SQq0GCZ5bHymNA nowB1scWGtR9a9OtUfNW24eD58 WYaaRNKrVlS6YgHzgtmhjQCl M3ulNuYnmOUqNyo+PHRhYmxlIH kcDYGqWOkiFJAnCqIofZjyEB3e Ol0pVMVrXINnsAwafISiKeSy v9bfCDEdBMsgHZ5kgZrnS6FwrJ H7AFLbj9f2Kx77kDU+PHRkIHN0 dHolOUlew324NkPcm7cbPKY1 cIVpNNqaFTZ1V96te5L6XOAxUX FbIMA0pRI8wL1swKopqpteG5Ha pFDfIqP7UUY4mPSymH3zpNhy lhtonD4rKdd+A05WZB2OQUOWYL 2GObs4Y4JjKrdwqNJ+PR84LXFh QP67sOUcbIIlt3guyOz3UiRp XMRxXHR9pSrgJHzer4XfUTVlL1 8ubCSel5N3VYNtpVkzuNSeHoWw vRH6qN3uPWqlvlwdz3cuauiu Wuswe6zrln62uT80D14zWWoqIZ HzVWT4GWQgUNJwtTobmb6ajR8c Ii8+ZIzqt9oyh4unkIj0RrId FXKlvxAdqPhcMDH0z4RiAm75O4 SfiRldn5OuBso0li15zZVhl9J2 lUT9DSczRSTwwR6xUWllDcP5 RZNhHwImtA75zIGcEUujGc1wuZ qkjXwrFW1uZEUzxnpfTBTkwQ5s AOSwiLYszHwnYL5fMMGkeysr p577PyUmSMD2SACoiXMfU7JqrP 0rJgTvCGJmRNZdB6BfyPExKEpn P944NEmwPnV8MCUhxxWuY4Va HEOseZqrLaR8s7Z7Bi6Jf5Hafv ufZNX9LFunFEK9KlGsReOsMvC8 B2AhNxn7RQTbpYwvXL3vD8Or EHNlhljpgyrkvHQ7LCJbYQXzdD 80kHWdQIaxYm6ck0D6c647KZSs UDOfuQ28Yn1npToxLVNvjFXU eA3oyjque9caippdKrQpOKXhCN x2SBb4DKVjzKsjLqWjQTY7LyL8 RSX1zICfcP0umRnenwzmdC4j Oyc+M14amP2fFSX2NSR8iebuMK QgqnKnUZ24FQ20N7FyXigxdIPk bGU+VYMlfxBhbMedGT6wKzEu h0rkp6AtXNobE7EnFIJhWWovMo q6ZREbGBR6eZJ0rC0rEVCoHRdt u0I6yKD0N9NkceQowh0kd7xa ORXvIPxfH08rzNZuy3M0MSWxyC I6WNKstFnwRpLbqH12Nkt+PGNv nVfev4PzRbihv2goo4pglDi4 KgIyEALycvJkcLheLDW1d8AoZs 32I75tLIpnRTNcDWMgXVHcHPXi lXzfkm8tqT4mYg6+PGNvbCB3 qOE9dZ0uMYYcVdE3MXnvM506Hz BqwSUwPmgzc0eas1iwdZw3DmIy IJVcwrIskZenSFH6c8VqTs91 E52wWIwhZNTwXZCmSIIwEEOidI nkeg7zbT6pHo3+FD3ma3plij98 pD92iEC+RDVrEGC1eCdbNNnv RVQrsJ9cRBlwCdM8RVXsIjDcxA 69zXGsJBbpCb8ulMvbhNzzFY6q AJDopbfku049NwOhm3jkSNGc zASxGSomBPJ4I01gx3D7EQWyPD TvAQA2qAT4qA2nlPdayuzatORf pVoyngUotYowAJttELjuW511 IHRvcDsnPlBhdGllbnQgTmFtZT z9M1ZbWgq6DSEgdOhqCT1juMFa ORbqYv7rmOborDohKS0bDHJe joqdq011AdMse8hbLXQllTHiGB rpFHC5Q49so5S6WWAeUPKsWDA0 pRW7tW7vxBtuezvyoVVqiQpu qcDaaMuhGWnzALmnA374XTAlnI lcByQghgGnWAUylHN6FW71ZL81 aRCbw7E1sFK5B1UhSBZwnjsr uvptqDY5KYEdEEPmuO45In1ogE owCf5xCLMvWXK4XMPikJMvU5Uf hN9nQiRtDWPxZHGkV6EuzIDw MJmlX394UNysCmY2DCTzyoYnM3 EfSAQcaQxeUsG3h8B8Yf4FE3J4 XA51OH03oVTvj3G9gPT4R6Yj ZUOuvbxpwvcysQD9BKXrUXTxlT 11Ip3mtWhcXr1bXMHjMDT4JQNo fODaQ9YuwD8qEcNmIPOoHRCf M7LifKZbYLlnS527YThsEsP0AO MvinRgG6BhZFHsfIdxZaU2b6L6 Ne4GZBi8EH22OJ98cQCeb3H4 sJA6W8WcASWnhvgmxaleyUG1KR WoULLgrU42Ya5kiVuuSs3zKELb LJT6OCUkrQPzV0NnwF1pYyKg OBAdOOGvW6KyqELiBSuqC463CV tbPlV5RRAentQeO8VvGMBqgMhe GcQ1l9S7Cm0NNLOqCD70AYH6 rFF9MM02RK31L8AiVlgnoGYryP U+PHRhYmxlIHdpZHRoPScxMDAl XnAzpRqcAR2bOi3lWFYpFDWc eWzidYWlLaRte0gxBUMhFVmbDX 1dyKgmI1AmzCP4SAZmz1v8Do85 K68oA0ScpOU+NBNsmKA3tIP8 pU8tHmHoMnG0NIziS513ZdLbfM CjTthud8lse4fhyRl3NyO0HVLv npKboPnnKTU6u2YoQd81C94s IHdpZHRoPSIxNSUiIHZhbGlnbj 8vcM8wVl3+VZJziMC7uBV4lH9f ObYfBxB2YHhtU593BzHeaLFy Zxdot5hfa5outIz9XkJvCGYysd HcfDrpFQK7k7VtQx63M6LdiJao k4HaUit2bh62gDOsr2Q4gZI7 L6RxVDVsnyhfsHWvjEzhDB5bPY EirabbJYNpxQ4bVJGiS4v4VgTv GmY2TGokJ4CltdT0RRIqmXWw HBspHYP4L29jb3D5EPDwMQFaQQ R4xDB0dT6wiEjpedcemOClfFqc blOenSceACanFGdsI047JGQm qZtcKXCxfQ4rXOFogFPguOqlOL 4wNTBpbjsnPlNURUlOLCBWSVJH AC8NHSGJUPL6T9PiZda8MHSt nQodKH4wvNYdXIkgYi9igGnvaL gyOL5rEGUdbanyLPOuhQ8nYGPz kOFnpYdoXQ2wAZOctiexi669 XyJiKCG2JOHwbWUmD0UlqF8yRp KlNUFyHVQsW4BinPVwOWlrJ019 UHtzQjV3FZZhjlWaG7KnARFw nZjcFeM6x1A2Yh2uID4rUO0mCT jgXI81NB10dNTzn6H0uZK2K0Oa JFGaawitfikccWD1QSGbJZAo qS88tTGjDArhId7fd0X2z941UY ZxAUOraZ11Rc3qaLylFOTbzPMM vS5ibnusm4dmeqxvZqMxNSIu QUn8ABx2POKvaAmvHiPaGWZ0Qj C7YBC9cGXmtM8scBscnsyqlZ4q Oyc+XrifKAVzeqK7O1FqOfo4 JAGjsNozVS6brWGeBKxpXa0rmZ lxkYmtEM4tARYcpkxpJFZdtT3n MXNhnHSfbOqjFO9uWZXfpwgs e751RuHnROG3TNEaeBCqJ8DztR 0aNsPuMRFtGCWrN9GbpIHbJYrs T574AEvpEqE7BREvkjDxM6Pd NLLxvZinVaB8k0U4Mr2QBB0SBZ Q9I4BkFtz3QUAhhCfvRL0ksXRm WGycJy1xaInxqKhvKY9sVCGi kuyxGMDreZ9zDWJkqRPnxWpbKG 8bPVEpzyipz240JxLgOCD9ANHb fZHxQ0MjfD2yVkHdKMQwSKNz M8NmyNDuFQoxM195XLbnZnJ5ZP QjrtTvV9EzVZNemQdmVoL0k2T7 Nl8EPRgmdCE+RR59rc38K9Ol DyxdDok6BTHgKTP4rHR9kC2pQX NlIZunp0K7wRA1Y5IajwGahs8d e3fnVNIlLFzjI56urDUwg9J3 SXEepQU6NBLstVseWhOwaX89Dk c+NHRgeYahk1VdAzfpl8rqd8py rVh9EnPgTWTkkmQigSbyXLM0 b6QkDi14Q58zTEqaQGGnGSOjHV QkQOIvrGrpxf3tnK7sFb7+PGNv oQI9qEM2kX2uWtXtJpZ3OGul R863QaMkmEMcIzcbx3iei4azkU x2DpCqNFDivsDexRdhVTE9i2Ub Lk81J5JuxOtjb5AqYuk7hg71 eKUps5N0aDZ7L0CkVDXojhnfrV CcaFpiEX1wJLUtydpoJFYlyE9l XNYfN0u2TuVvOeC6WZpdO1Om tbR4STOneAHiZCNtlIXCrI9kyj vam4hrxiwsZfMdJWDeOQv6NAi7 DPGokAjcYnZjMVZ9FdK9EDP2 qBJroP2eoFaqynqvzD8sWxg+UG g8a9yirPTdAO1xrWO4GZ50XZ89 tPLug7E8zCC7K0XiXHOzpzki tnrrxNK9BWDpKPSbxR42Fd2ylS mwBg8pGWGgEWK4JNTpwOAoH5Xy hB4mVdFcSDMaHFNiA5ClmMFd AGnrK672XXqaWyR2WWOhseHbM5 EzEAUjzFsxBoX1z2Z4Ll7HSP31 MM68LA27yCEhb3L2wYD9T2Ug DMWlyedigeosjRX0HSBzKCQumD 68Ib9rnOmhCg1gYYHgCJU0EQNq rUCfQ6HmwR6vFoIpBQUqPEMy S3HjoBYnVXirW673GPysIxD3GO WevuOzJ4HxJVCdvCjtGzM9i1X2 Om7DJk19IH11HV35dXGzp5A3 bMX5I8TnDHKfoiiuneeddQA5NR PvSWOtlM15Gk9vsMymHg6cDQWj ZOE8VBBwsSOlZ3DydY5aEaZy ZDPqHSGpH2TpcXDjGQnwE270CP jzEuY2IDBaycEqZ0WcMTUekWft QlF5n8B5Ej6LTKoqvnn5G8Eh PjwvdHI+BC54JFPkPJ99vSWneO Idk6dljOj1CyTgHMMeFKW7bCji HKrdz5SdUNHcC52tnXEmq9N3 IGN (more content not included)... [facility] Coding Summary HTMLBase 64 YqgnxochMEx2pYq+PGhlYWQ+PE 7SNBBhV39kzYTggC6QK9vUHD4G XDWGSYGEQR9GJJ0rsZT4OKvuQ9 VybiAv VtohiDDtYG18KYr4DUN1zBuqWI vhzE2ksJNoJ3o4BgEbLA21nI14 EWbwBLLhSmD5QmYzhvapvMUf R7yqWlJolAVmYex+PHRhYmxlIH itDZXmGAqjTEDhSlWxmRyfFV6d Bd1rSEJxZUYhqBcjxMWmApBu w9fjFXGdQVcrNC6fuZodK9VzmB S3RKIey2r0Ai64lIX+PHRkIHN0 qEtiWFoux966PiQcb8geHGH8 bQGzLPulHVO6T88zz1V8VQMxQW VpAKN7iNX0kD3kzIvduvycD4Xy lGNkGmU6ISV8dYClmJ1luTjv occquV5aYpb+B22PGG1ZUIJMXO 1ODxb0R4FaUnkdgWQ+LJ67JECx WZ97nDZmeXCba5awnLk7RlSa ZEJkHSQ9eXonOGlyv9SsVLJmQ8 7qeZLwc3R9XRJjoIvclZPeQnHj cRC3bA7jJRkcwajbz8dvbxis Uljmh7rxda55tQ38E86tDWkvHQ TqTWX1PLBrNEAeyCkbmz4krC8d Ii8+IIpdc3dcj8wvzTo3SfCp PJAvktGzqBcoHQT1f1ClLx60B9 BccPssj5XfIbm2ch24wTWtj5Z9 eIT8IKfsDRSlcJ6mOWnqYxD6 HKWrPwVqoB69cWZuDJkkLg9lzU dkvIxlIS9vFATndbnrSBRshA0q IQEnnIBswCnpHO1rTUXbpklk k664DtEvSKS8RWMubBEbX7MjbY 7iXvDzDLUwJOQdE9RafFUrXHrg L509OKemLzK5JGKsgmSeP5Pc JWWeuZreIyK0v9D6Tf2Oi0Dtwh xyVDQ9ONrqBZI2BsKmGcWaLiZ6 N7HhGgm6OBKlgGmjUV6sI1Rw VHLjxzerxphtrII9BBYxXMHxbI 83sQLsKExwBr3jp2Q2w875CYTt KPYeoA56Ag2oiRcmXKMhzJKR uW2ffenud1pximuzUiGnUOTaIW g9VOi8HBFrbDfyOvWlEXJ0LbL1 VGC1bURmoY2ojMoqgilmyG1f Oyc+S41ebQ3mSWM9RQD2pfypGC JqbeSlAI12DV64V4RjMdcubUIb bGU+RVSgvrMebIwgLQ0hPcQt k7qyh6FgRFppK4JeQQWgCDzzUl v6QBIxRGA2qZD1oP9rPUQfBWxs r1H8sNX6T9RthuOyov7xv1zu ZEBnSQehF33pkAKbd0D0HUGkrN J4FDJcnYhjYgMcyY66Pfc+PGNv gNkrt1VsWqxwo7gnn8nkyLt2 KgUoAIBlazMpvWncVAO1l5SyZq 71Z68kERmwENRfCNJdCTAhVKIa mCgdzo3aeF1dEv7+PGNvbCB3 uTO1mR6dHNYgVaP1CJzxP576Wj XpeBTeNjvuv7drh9hhfUg5BwPp JLLyjvGabAfaMRH0l4TvMu89 Y45dCPbsDUPfXEGkQWNrJULbxO mrcy8ryQ7qOw1+UY5ri3fqhx87 nW82oVK+ZTPnJFW5dQiqUVmn LDZkoZ2kAKcsKnQ3UVPfWbUtpE 90uZMyYOtqTa7wzCoriCgzUZ5q KVBhpvbvd497DkDtd2rhKEWp xRYzXMkdFQV3K71cq0K9UXFdJT AvFZX5iST2oB8pkTadjxhqcUFj hKwyitGwkWcuKZlyOBfzT608 IHRvcDsnPlBhdGllbnQgTmFtZT e8G2DvXeo0DZXqjBuzAG6ylOHb PPzfVq6glSachEnyLD0fWSMw jodlr030EiVqs3uuAZEkaRGtNC zmNGW4N98xj4K0NFJvWJMoAND0 xTS9fY2tfQjpvvcraNOvyUlt ipQitAisDIdkLKtyM827MYQbtR mkAkVkszUmHEFniBU3QK31AC10 iDBcc6W9eQJ0K9IhGTRwyodw obdfgJQ1BOIpJNRwlQ13Hf8ynI upRz9kDDOqLJU2CXVwrITbV9Iy tE6qXkFnQHSfKEQmE0UyjLEg CWxqJ121BKwcIyM5CFDwvcGjX2 FiCHGplEstRsI6u8Z1Kv0OW7N2 UN10GT52pEZxc9F6hHM6H7Nr JHKcfrrenxjlwZT6KGOdVHBnkP 88Ds6zvBypUx5sURPmHEQ1RWJg tFVsU4RkiK9pJaVpJHXbIQYr F3GbsOPkOBfkP329NHeyMfZ1GK KajnFxX6XnUIYieSylXgI0i0L6 Xh7IYSd3DE73YH49uYZep5P0 pWC8M4RzGCGujveufinlrQI8UN JoVVHqsI56Hw7jlGcmAt5bRWBr YVT0BYInnSSmI1HrmO2yFdDo HZOeGUGkI8YhwUEsVZtbH970QD fkCeC9PNQkfeWsT8SoSLLevHfz YnT7u8O2Su7IKFKmGF13NGY9 yGY0TN19VA55Q6FmYtzetRJcvP U+PHRhYmxlIHdpZHRoPScxMDAl JkNmwGuhLM2gLn3oBSFqUAJq bJlqqLRwPqOch8tdGKQgRKgwDO 0ppTtcS8XwsEU4JVUxr4u2Ts45 A37sB0EfmMQ+VMYliSO9yXT7 xB6tUwKsQiD6NJoyS842UvVyfT OcQoaor7iny1nblNw8VyU2TFCo xnCezFosBJO6d8SiDr41G76x IHdpZHRoPSIxNSUiIHZhbGlnbj 6npQ0dXh9+SWEdvAI0nMB5bG8r EhOwOdQ0WLouR347GxTknFIs Scpob5bps0pngGa2PxFhYESayw EnnNxzXCH0u2TdAv17K4JusTyy e6HjFeu5ve08eIGka2T7nQH7 M0UuQXMbmfitlGHuzJjgGN4bNP ZmpjstKTEnbR3pVDAhV4y8YnDu GwO0AHktN6XopjM9QOUtzOYj YEyzPOE6U04ix3N2BXGaWCNgXC Q0aBS3kP4uhFizqtavmTHokXdw ouOieVyzXVvrEYfaS653YGCp oIvlVUEuuI7rJOIouMQthClnGA 4wNTBpbjsnPlNURUlOLCBWSVJH KY3KNELLXHC9O0KwOki8CFUm dNlaOB8sbKItUSutKu1svBmwdC iiGU0zDJNilrsbUDThmD4gJTLq vGFnnYfuQH7sUBAnknddd374 KrWmACT7PPSsiUGqX1PlgK6aJw JnRBMrYHPwM1FfoZNqQWduH546 LAykWqB4ZWIfpjUcK3WaGSNt cJhqSmN9r8J3Sx7uGR9oIL5fGN xlDJ17JB78oOTjg5N5tYD6A0Iz ANRhdestborrdCW5WYAoRYNx nZ45rESuZIpeZc3jh1Y4y624LS DtQDQkiG08Gk8ukRtdDYSulJZH xB5rdkyyg1hbxcyyZmPiJWVp ZJi2QUb7UQFdvUkmVqHeEGR9Pb V5CSB2oFTskM0pnJkhljqqfB0e Oyc+PixcXMYasoG6H3KrYxc8 PNOcnJhfTR2adTMbSRkxEt1hcM kmyVonAL8cAZOemgvaSPYycH4k JESdmGUriVoxYQ0qOQWxxsum x626EiNdWVT2WIJmjQUpZ3XvzA 0rQsUvMZPaUPKvO2DkiVPbHQdz U977AGakNhH6RGQpgfNzU3Ca INZczDpgCtD4q0T8Au0XUD3PRY G9C8TcRsc8OVOzePnqZG1dcUEt ORcaPp0xqCndgFwjZC4aRLId mpvaSLWbiS1cWVRuuVDfzWllTG 6mHNCcjstzp108QkSaTCT2TQAe aICoQ1AljS5qEiKwXFMpKCZr E8QtaOAhOXdvR391MXgtWdY7UY JknxWzI0KdXCYmvTltAhN4s6T9 Dn2ZvNSxQ0PsV9q7Q1RwLlnf dHI+KI05KHHuTL91qBBhaGTjj8 yoiJc3LrQlSKXlGBR1eVsmAWnh e5PtIKMaH38yaWSqd9Z9DYJt vRxmdRSuOcWnbSU1xU1aTZnksg aum3zrxzpgTyzzo0nxaq58tX60 G72gDUtxKQXfPAAuICRaJVPl hHrxeh1bhV8yXk4+ZBEjpNU0oD V2wS2sPxWhAsQ4ENsyK045PgKx wTMmRoqbz5gms3whdNl0QaKh XXFxebLbqWiqWBC0s5UpQd96R7 9sIHdpZHRoPSIyMCUiIHZhbGln ll7tvG7lGb0+KY2jp1qlnt27 jX54uVT+QMSlWAP7jXvcSYurVM AteQ9aXUgrEuU8SGQhAkVnfD65 nKUlRTycBj0qrNehoRjgCU1c TKUpykpmx684BvXxc2uzQHDoyH WcUFdbJXX1X03xc3Q8ROGtFOKx PVI0cKR0dP5ioOytxjcfzLWo pExyetZuxItmIVkjVWwsJ430OD VqaQmkKwAfjEToB1tmfyJDEM2s OjwvdGQ+XTYgBDF7qGcwRTuf DYSfyE9uFGZzF7r1NkQsKmZ2OZ noV3WktvI9DXGiwSZeKKDkqWJV vT5adxvcg0cjrptsNwTyULVh IWf4DPu7CUNvfGhmYcXuGOI6Im D9WWQ6aQHliZ8gjRpsizxdsV6g Oyc+RklOOjwvdGQ+PHRkIHN0 xAlzDOggSDErjX4gBAAxF2i5Uy XqAjL6IYwrC8UqekG0FZMmlYOo CRWzjMSJfB7oeleps5axxjnk OaRdFLRoKMa0FLn8TRKlzUbtJo AnZHL8FeK1CCK7zWMqsV9jhAoi xyzolL3oGxz+TVJOOjwvdGQ+ BNPhZVA4iLfePAyzHPNvuU2aEI HoP6x3SvLfAkB3HWtbB0LqeiW4 QDLzoXNjVXGwcNZNfR0rvmli t8aixourWwDyCEVnJLx6BQh2VM UahAajKtFeWDT8LaG6PRM8nRBs eZ8uyXywghfpqB7zQcs+UGF5 CKL5NO24GY45W3FwEfseaNKlzV U+PHRhYmxlIHdpZHRoPScxMDAl IwIhjPuiIA6iNh3iYMAtOKVg bGx (more content not included)... Normal [facility] CHLAMYDIA/GONOCOCCUS RAINER ( AB/URINE/PAPon 02-09-2022 Chlamydia trachomatis, RAINER Negative Normal Negative [facility] Comment on above: Performed By: #### R PRQ #### [facility] [address] [address] [address] Juan Antonio Ibarra Neisseria gonorrhoeae, RAINER Negative Normal Negative [facility] Comment on above: Performed By: #### R PRQ #### [facility] [address] [address] [address] Juan Antonio Ibarra AFP MATERNAL FOR SPINA BIFID Aon 02-08-2022 AFP MoM 1.41 Normal [facility] Comment on above: Performed By: #### A FPMAT #### [facility] [address] [address] [address] Juan Antonio Ibarra AFP Value 66.8 ng/mL Normal [facility] Comment on above: Performed By: #### A FPMAT #### [facility] [address] [address] [address] Juan Antonio Ibarra AFP, Serum for Spina Bifida Report Normal [facility] Comment on above: Performed By: #### A FPMAT #### [facility] [address] [address] [address] Juan Antonio Ibarra Comment Comment Normal [facility] Comment on above: Result Comment: Melchor Chaudhary, Ph.D., [facility] Director . References: Available Upon Request. . Multiples Of Median Cutoffs For AFP Elevations Briscoe 2.5 Black 2.8 IDD 2.0 Twins 4.5 Abbreviation Definitions IDD - Insulin Dep Diabetes OSBR - Open Spina Bifida Risk . For further inquiries contact [facility] at [phone]. . This test was developed and its performance characteristics determined by [employer]. It has not been cleared or approved by the Food and Drug Administration. Performed By: #### A FPMAT #### [facility] [address] [address] [address] Juan Antonio Ren Age Collection Date 18.3 weeks Normal [facility] Comment on above: Performed By: #### A FPMAT #### [facility] [address] [address] [address] Juan Antonio Ibarra Gestat, Age Based on LMP [facility] Comment on above: Result Comment: Reca lculations are not recommended when gestational dating by LMP and ultrasound are within 10 days. Performed By: #### A FPMAT #### [facility] [address] [place] [address] Dr. Juan Antonio Ibarra Insulin Dep Diabetes No Normal [facility] Comment on above: Performed By: #### A FPMAT #### [facility] [address] [address] [address] Juan Antonio Ibarra Interpretation Comment Normal [facility] Comment on above: Result Comment: [...] Customer Services to discuss available options. The [employer] recommends amniocentesis be offered to women age 35 and older. Performed By: #### A FPMAT #### [facility] [address] [place], [place] [id number] Dr. Juan Antonio Ibarra [age] Normal [facility] Comment on above: Performed By: #### A FPMAT #### [facility] [address] [address] [address] Juan Antonio Ibarra Multiple Gestation No Normal [facility] Comment on above: Performed By: #### A FPMAT #### [facility] [address] [address] [address] Juan Antonio Ibarra OSBR Risk 1 IN 3501 Normal [facility] Comment on above: Performed By: #### A FPMAT #### [facility] [address] [address] [address] Juan Antonio Ibarra PDF . Normal [facility] Comment on above: Performed By: #### A FPMAT #### [facility] [address] [address] [address] Juan Antonio Ibarra Race Normal [facility] Comment on above: Performed By: #### A FPMAT #### [facility] [address] [address] [address] Juan Antonio Ibarra Test Results: Negative Normal [facility] Comment on above: Performed By: #### A FPMAT #### [facility] [address] [address] [address] Juan Antonio Ibarra VAGINITIS/VAGINOSIS DNA PROB Abdirashid 02-08-2022 Bettye species Negative Normal Negative [facility] Comment on above: Performed By: #### A 1C #### [facility] [address] [place] [address] Dr. Juan Antonio Ibarra Gardnerella vaginalis Negative Normal Negative [facility] Comment on above: Performed By: #### A 1C #### [facility] [address] [place] [address] Dr. Juan Antonio Ibarra Trichomonas vaginalis Negative Normal Negative [facility] Comment on above: Performed By: #### A 1C #### [facility] [address] [place] [address] Dr. Juan Antonio Ibarra ABO and Rh group post transf usion reaction Nom (Bld)Ordered By: Eleazar Hess on 02-06-2022 Microscopic observation Gram stain Nom (Unsp spec) [facility] ED Clinical Summaryon 2021 ED Clinical Summary [facility] Emergency Department [address] [place] [address] [id number] ED Clinical Summary PERSON INFORMATION Name: ZULEIKA WYATT Age: 31 Years Sex: FEMALE : 1990 MRN: Acct#: Visit Reason: Rash; Medical problem - minor; POSS BODY INFECTION Arrival: 01/29/2022 20:27:46 Discharge: 01/29/2022 21:17:00 LOS: 000 00:50 Check In: 01/29/2022 20:27:46 Checkout:01/29/2022 21:17:00 Address: [address] [place] [address] [address] [facility] [address] PCP: Andie Stoddard PROVIDER INFORMATION Provider Role [...] follow-up with their family doctor or their OPHTHALMIC PHOTOGRAPHER doctor. To this they agreed.. Health Status [...] Current Fr (more content not included)... Normal [facility] ED Note - Physicianon 2021 [...] follow-up with their family doctor or their OPHTHALMIC PHOTOGRAPHER doctor. To this they agreed.. Health Status [...] Once. Impression and Plan Diagnosis Sebaceous cyst ([id number] L72.3, Discharge, Medical) Plan Condition: Unchanged. Disposition: Discharged: time 01/29/2022 20:59:00. Prescriptions: Launch prescripti (more content not included)... Normal [facility] ED Patient Summaryon 022 ED Patient Summary [facility] - Emergency Department [address] [place], [place] [id number] PATIENT DISCHARGE INSTRUCTIONS Patient Information Name: ZULEIKA WYATT Age: 31 Years Date of : 1990 Reason For Visit: Rash; Medical problem - minor; POSS BODY INFECTION Arrival Time: 01/29/2022 20:27:46 Primary Care Physician: Adnie Stoddard Attending Physician: Johnson Wright DO Comment: Visit Diagnosis: Diagnoses This Visit Medical problem - minor ([id number]) Rash ([id number]) Sebaceous cyst (L72.3) The Pharmacy at [facility] is open Saturday through Saturday from [...] alcohol and/or drug addiction problems; contact the [facility] 07/01 Crisis Hotline -Text 4HOPE to 372172. If you received any narcotics, sedation, or [...] legal documents With: Address: When: Andie Wyatt [facility] [address] [place] [id number] Business (1) Within 3 to 5 days Comments: home warm compresses clindamycin for antibioitic see your ob, or Dr Wyatt, for recheck apt ----at some point, this might have to be removed; this is not cancer, but a retention cyst of fat material; Return if very red and tender, or fever, vomiting worse You are welcomed to return anytime. Call Dr Wright, ext [phone], if any question patric WRIGHT< ER PHYSICIAN< [facility] Medication Information: The exam and treatment you received today in the [facility] Emergency Department were for an urgent problem and are not intended as complete care. It is important for you to follow up with a doctor, nurse practitioner, or physician?s speech pathology assistant for ongoing care. If your symptoms [...] so we can reach you if necessary. [facility] Emergency Department has provided you with a complete list of medications post discharge. Please inform your signal apprentice/provider of your visit and for further instruction [...] Epidermoid Cyst (more content not included)... Normal [facility] TYPE AND SCREENon 12-30-2021 TYPE AND SCREEN Antibody Screen NEGA TIVE Blood Bank Notes performed by CV on 12/26/2021 ABO Rh Typing A Rh Positive Blood Bank Notes performed by CV on 12/26/2021 Normal [facility] Comment on above: Performed By: #### R UBIGG #### [facility] [address] [address] [address] Juan Antonio Ibarra HEP B SURFACE ANTIGEN SCREEN on 12-28-2021 HBsAg Screen Negative Normal Negative [facility] Comment on above: Performed By: #### H BSANS #### [facility] [address] [address] [address] Juan Antonio Ibarra HEPATITIS C VIRUS AB W/ REFL EX QUANTon 12-28-2021 HCV AB 0.2 s/co ratio Normal 0.0-0.9 [facility] Comment on above: Performed By: #### A 1C #### [facility] [address] [place] [address] Dr. Juan Antonio Ibarra Interpretation: Comment Normal [facility] Comment on above: Result Comment: Nega tive Not infected with HCV, unless recent infection is suspected or other evidence exists to indicate HCV infection. Performed By: #### A 1C #### [facility] [address] [place] [address] Dr. Juan Antonio Ibarra HIV 1 AND 2 WITH REFLEXon HIV Screen 4th Generation wRfx Non-Reactive Normal Non Reactive [facility] Comment on above: Result Comment: HIV Negative HIV-1/HIV-2 antibodies and HIV-1 p24 antigen were NOT detected. There is no laboratory evidence of HIV infection. Performed By: #### R UBIGG #### [facility] [address] [place] [address] Dr. Juan Antonio Ibarra RPR QUANTon 12-28-2021 Rapid Plasma Reagin, Quant Non-Reactive Normal NonRea<1:1 [facility] Comment on above: Result Comment: Plea se Note: This test does not meet current guidelines for screening and diagnosis of syphilis. This test is intended for following treatment response in patients being treated for syphilis infection. To screen for syphilis infection, a reflex cascade that includes both RPR and a treponema-specific assay should be utilized, such as Treponema pallidum (Syphilis) Screening [place] (003327) or Rapid Plasma Reagin (RPR) Test With Reflex to Quantitative RPR and Confirmatory Treponema pallidum Antibodies (535889). Performed By: #### R PRQ #### [facility] [address] [place] [address] Dr. Juan Antonio Ibarra RUBELLA AB IGGon 12-28-2021 Rubella Antibodies, IgG 3.48 index Normal Immune >0.[address] [facility] Comment on above: Result Comment: Non- immune <0.90 Equivocal 0.90 - 0.99 Immune >0.99 Performed By: #### R UBIGG #### [facility] [address] [place] [address] Dr. Juan Antonio Ibarra CBC AUTO DIFFon 12-26-2021 BASO # 0.0 103/ul Normal 0.0-0.1 [facility] Comment on above: Performed By: #### A 1C #### [facility] [address] [place] [address] Dr. Juan Antonio Ibarra Basophils/100 WBC (Bld) 0.3 % Normal 0.2-2.0 [facility] Comment on above: Performed By: #### A 1C #### [facility] [address] [place] [address] Dr. Juan Antonio Ibarra EO # 0.0 103/ul Normal 0.0-0.7 [facility] Comment on above: Performed By: #### A 1C #### [facility] [address] [place] [address] Dr. Juan Antonio Ibarra Eosinophils/100 WBC (Bld) 0.4 % Critically low 0.9-7.0 [facility] Comment on above: Performed By: #### A 1C #### [facility] [address] [place] [address] Dr. Juan Antonio Ibarra Erythrocyte distribution width (RBC) [Ratio] 13.5 % Normal 11.0-15.0 [facility] Comment on above: Performed By: #### A 1C #### [facility] [address] [place] [address] Dr. Juan Antonio Ibarra Hematocrit (Bld) [Volume fraction] 38.9 % Normal 36.0-48.0 [facility] Comment on above: Performed By: #### A 1C #### [facility] [address] [place] [address] Dr. Juan Antonio Ibarra Hemoglobin (Bld) [Mass/Vol] 12.9 g/dL Normal 12.0-16.0 [facility] Comment on above: Performed By: #### A 1C #### [facility] [address] [place] [address] Dr. Juan Antonio Ibarra IG # 0.03 10e3/ul Normal 0.00-0.03 [facility] Comment on above: Performed By: #### A 1C #### [facility] [address] [place] [address] Dr. Juan Antonio Ibarra IG % 0.3 % Normal 0.0-0.5 [facility] Comment on above: Performed By: #### A 1C #### [facility] [address] [place] [address] Dr. Juan Antonio Ibarra LYMPH # 1.4 103/ul Normal 1.2-3.8 [facility] Comment on above: Performed By: #### A 1C #### [facility] [address] [place] [address] Dr. Juan Antonio Ibarra Lymphocytes/100 WBC (Bld) 14.5 % Critically low 20.5-60.0 [facility] Comment on above: Performed By: #### A 1C #### [facility] [address] [place] [address] Dr. Juan Antonio Ibarra MANUAL DIFF REQ NO Normal [facility] Comment on above: Performed By: #### A 1C #### [facility] [address] [place] [address] Dr. Juan Antonio Ibarra MCH (RBC) [Entitic mass] 29.6 pg Normal 26.7-34.0 [facility] Comment on above: Performed By: #### A 1C #### [facility] [address] [place] [address] Dr. Juan Antonio Ibarra MCHC (RBC) [Mass/Vol] 33.2 g/dL Normal 29.9-35.2 [facility] Comment on above: Performed By: #### A 1C #### [facility] [address] [place] [address] Dr. Juan Antonio Ibarra MCV (RBC) [Entitic vol] 89.2 fL Normal 81.0-99.0 [facility] Comment on above: Performed By: #### A 1C #### [facility] [address] [place] [address] Dr. Juan Antonio Ibarra MONO # 0.5 103/ul Normal 0.3-0.8 [facility] Comment on above: Performed By: #### A 1C #### [facility] [address] [place] [address] Dr. Juan Antonio Ibarra Monocytes/100 WBC (Bld) 4.6 % Normal 1.7-12.0 [facility] Comment on above: Performed By: #### A 1C #### [facility] [address] [place] [address] Dr. Juan Antonio Ibarra NEUT # 7.7 103/ul Critically high 1.4-6.5 [facility] Comment on above: Performed By: #### A 1C #### [facility] [address] [place] [address] Dr. Juan Antonio Ibarra Neutrophils/100 WBC (Bld) 79.9 % Critically high 43.0-75.0 [facility] Comment on above: Performed By: #### A 1C #### [facility] [address] [place] [address] Dr. Juan Antonio Ibarra Platelet mean volume (Bld) [Entitic vol] 10.0 fL Normal 9.5-13.5 [facility] Comment on above: Performed By: #### A 1C #### [facility] [address] [place] [address] Dr. Juan Antonio Ibarra PLT 194 103/ul Normal 150-[address] [facility] Comment on above: Performed By: #### A 1C #### [facility] [address] [place] [address] Dr. Juan Antonio Ibarra RBC 4.36 106/ul Normal 4.20-5.[address] [facility] Comment on above: Performed By: #### A 1C #### [facility] [address] [place] [address] Dr. Juan Antonio Ibarra WBC 9.7 103/ul Normal 4.0-11.[address] [facility] Comment on above: Performed By: #### A 1C #### [facility] [address] [place] [address] Dr. Juan Antonio Ibarra CULTURE URINEon 12-26-2021 CULTURE URINE Culture Observations : LIGHT GROWTH OF MIXED GENITAL ALONSO. NO POTENTIAL PATHOGENS SEEN. Normal [facility] Comment on above: Performed By: #### R UBIGG #### [facility] [address] [address] [address] Juan Antonio Ibarra GLYCOHEMOGLOBIN A1Con 2021 ADA RECOMMENDATION SEE BELOW Normal [facility] Comment on above: Result Comment: ADA RECOMMENDED LIMIT 4.0 - 6.0 ADA THERAPEUTIC TARGET < 7.0 ACTION SUGGESTED > 7.0 Performed By: #### A 1C #### [facility] [address] [address] [address] Juan Antonio Ibarra Glucose [Mass/Vol] 114 mg/dL Normal [facility] Comment on above: Performed By: #### A 1C #### [facility] [address] [address] [address] Juan Antonio Ibarra HbA1c (Bld) [Mass fraction] 5.6 % Normal 4.5-6.2 [facility] Comment on above: Performed By: #### A 1C #### [facility] [address] [address] [address] Juan Antonio Ibarra US PREG TVon [...] by: FELECIA GOLDMAN Date: 2021-12-07 16:59 Normal [facility] Coding Summaryon 11-21-2021 Coding Summary HTMLBase 64 FynpzhteQJn4sLv+PGhlYWQ+PE 1HWPOnA38kdENucV4TE0kURJ1P DICNEMNUUO1TWX6kbZC5RQgmM9 VybiAv UlkjfTFuBM37MFo7PDU6jQyvSN cjmP9ojOQcY9x1BjJzSM49lB39 UJafKRUhFmZ4ZjYwawxbcRGh V1kbUyHbjKGbTpm+PHRhYmxlIH vtIYFqAFhcZXIpMlKrjBxaAI3u Oy0lLPTwEMYynVrryUJrBcSf i9ugCSNbDIvhNM5lcUmoB5LsnN T3WCPmj5s0Ul80yHN+PHRkIHN0 iOupKNriw891DnXdz4zyBIN0 tPHcHMglKAW4D54nf7G7EHImDL AjDRT3pNX9uL3tqQkzhuawE5Qe nGKoPaX0NEX1sOMumC7ehOge znjsbJ8uFcq+G64OKS6GPKAJZS 3NEua8X8PoSydnzXU+GN45KQOf WP39yKHlnRQtp1lqdPo0RnGh VSAzWYS3sHueXMwtr3CwLDQfO2 4vxWNtb6U2IEUwmAkwuASxVaCj wZJ9zA7vCYiuayudh7ncbapp Ximcz3whxu86aB70A54hHKdqLN CjUYJ0VQVaPGFyoOijxy7kfQ0e Ii8+BErui6ber4waiFl4KkNg OIOflaTsdQhjDZE4m1SuEg31J8 AgfWuag2BoKqb5ew43pSFye2H9 vDF4TQeePITnoS1aPSnjKiP9 RUTrPcYklH47wYSnRCrnAc3icN makTfrNG4uAJGruqoeOSAeaZ3v VHJidMLdiOqmWK7xLUOsmbln l646WxTaTTV6KNMddITgP5FjfU 6tGfWvOIEiAYMuH8DqwXZwKJpf D369RHfmZiG8LEDeqyRnV5Jm XKWmuUiaKxD3k3W4Rq9Jl6Ksbf osDAV6BEskGBM9ChX7MvZwAfT3 D7EvArl8WYAztOnsTX8aV0Rz EHFpphlxevsahRP1LRVsTSQvfI 58zXKdBJwfVw0yv7L6b616QKWl IBDutS27Wa3oxXuyJEDtkJPP gR9xmsxml9vwrvxzDtGnLKDtYZ a1XZt2ULKcuBotEjCtDNE1GmQ9 YCD7oOSchJ0wrUyhcaiauU2k Oyc+P54jkE8lYAH0TVV5faolOL JvbdKbCT26AA30A3OoMqidcFUs bGU+HIBetaTyfTckKP1yIsUw j3rex1YeBYweB1MoYCRkASzbNr p2IUDjVZA0lME6yM5nRUNbJOjq q5L5rSS0B8NzdyUqmy3my2nu IHAwLEhkX46coPGzp9N1MCPyxY A4IASlpMhqIwUhnL87Fmm+PGNv jZqnl8YuFiwxw5oop8ukvHn0 TlBgMGRrlaKisRtwGKH1z8SzAa 60B34fKEwwNMLeDYKiOLPyJSYl tTjtsr3xqL2lYs2+PGNvbCB3 dAT2mP8bCKYpNiV0LCdzQ031Kk VwmNMrKcsjo0atn1bdcLt4WoYa TIMivmWqrWonPJX8g9MrTd60 T06xRIlaWXLtTHMiEXGiIOJthM fevy8gfY9mUz4+VM7rg8fflt07 qZ01aUC+MEShXMJ0pMedXJck MUEdnB5jSSofYkE4NSKbSaEowS 48bIRkGHwbTz5ifHkbjKpkWS9q WKGyewucj101UcTry0buESJi rIZsKZssIYO0E40zl3L5RNYlIK XiIMH7oIF1zW0dmPtamvijxHWq tSahpaIfcBgqTHzcEKhtF776 IHRvcDsnPlBhdGllbnQgTmFtZT y0J5UxYij3OHIzsCnsXN5xlHFk POwmNx2nuIbzxGwiKK0pSFSp sdmbe103YpSmj6haSCNrjDTbSN tkDWE2H69mg1T4LMKxQDXaTVJ0 yKY5rC9vpKdohowkgJNwwYuw lbWawCjsGAiySXqxC524TQWtzV erOoPfqdAoGKQkbZH6UG73ZO44 wSDjc4C5iGG4M6FrADHooamq ndqinSX3HUOsXNFqmI17Gk3ikU yuFg4uHWDtWKH4BDCxcGFrK9Dt cJ1mQzYoVNOlPIWwG8VmsSGn CDdhP213SKcsFaZ6BRXfhwVmR8 VpCYXppCdpGyC6y6C0Yz4AK0C1 KA54SE58eQDyg0U5gWM4V6Uc QJXrrybmxwdnqVE6AZIfBCSrtL 37Ha4dcLzrKg9rHCImSLQ3CFOh uYPlR0VqgH8aUfZuCIDgEVVj W1EvkAJkJGdlU740NWqjMuO7BI DfywFmF7CoEXSjtQfoVwE0u0O9 Av6ZTMp2VQ77IK61jRAjn3J5 vTA9I5IdRDFkpatnuafbfSJ0ZY LlIIZoqD64Rj3srFopSv5iCMBa PEK3IFZdxUNuG8OgaV8dMmLr LJPdNARyC6ObmRSuKPgcI461BR yhElJ5BNWaydMtH5UqVBQnmIlf QhP0e9V7Mn6YXIUtTF13FMM1 vXZ2RF95SS19Z6HpGbbosLWxwV U+PHRhYmxlIHdpZHRoPScxMDAl CqMdsXdqWA9jIy5rUMUpYZWo lDrvyACdZeFcw5esCKHzGQtxLY 7gwLoaF0VntNU5ZJDiu6e9Hg14 R21uR3YdiAB+JIZykCW1lAU2 hX8pDpKaKwG9SGdnU224CcOcvC BtUvvdh1mjn9fhoIi5DeX2ASWh imCjvJsyYLR5y3EoYa51Z05b IHdpZHRoPSIxNSUiIHZhbGlnbj 3jmS9yIf0+MCMkrRL2yDM1sG8d IfLxGvU5HMxtO264UmGkrJNc Vfkpp6amv4dnkQk5VqWmVTMcio XgxAhrLGG5c9JlVl76L2EynZkr v4RcCmc0ue99uJQzu7S0hFC6 T3GnXTMtrrsxfHBzyBjoAG6vNY YdrvzgDVGiyR0bVMLzG6i4XyAe WbY1OIygG4IcqrD1AHEjeGWq UEmbYBJ6L99hg8C6NRGqKXDnBB O9eTZ3uS5lyLstzlefsWPzhErs zxYdpScmAQzrIQcjD936VCGe qWutXROzeH8aEOIbgBLdkAfwUW 4wNTBpbjsnPlNURUlOLCBWSVJH JL3ZEIEYBIS9E8SrUth9WMJh bZmoHC3bkYPqFRklIy0xrWrnnP kaZR8vERGrpegmZSOvnV2xNGGs jGJxqTckCX2lVMTuciwqk629 EfTrIXY7VJWdfJFoI3VsiA5bJe AfRJEsKNYuR2CrnFKwJApfS772 QSksGnL7CODhboAxX9KwYTYw bVxgXiE4x8K4Ah0rQL4dZG8uKB tyVU45QF13tFDjh4X5eTG8S2Ge HPAoyjipckkybNL7MORiMMBm pX87jYJiURviVy1cn3Z2i715WP ZgLEZuqU77Ay8zgRskYBOqhBBG aL2crgedw9rmqznzUeKxJSRp ZRs2QSj3DYUavEhpCeAmAJG8Ms M8PNW7zVJxuR5irLlmcdhwoQ8r Oyc+FgteTDWmczI8E9TqSox1 TCTlmUehNP2pjCWlCHftKd8cgO satGpiBD3zTVZlynoiMEYknZ8a ABXeoOVdeQfhUY2qOQKvjaud w050WjLjNSG2PCDfaIYgP8FkqI 6dJwJePJLzQVFpO5ErsTMjWUpu H596CJjeBbB1PMPfhxEvT2Ng QCKuqSjvIeC5x1T1Av6OEZ6MED T5B0AmBme9TKSvyUueLQ6ouCHs XSgdMe7xsBxguCybES7oSQTp ibjmWBLauD3iSGIqfREhsSiyQX 4tALWwpqavc507EcAmIWE5KUCd jZNrO4GqfN6kXcSaTVFjNFPc Q3EetIWdMVspN420DFmvVhQ9AR CvqvXbA9BjEGUnoJhqJwA5i0D3 Kh2KJTovhZT+BV62mp08C6Rp NsisQwr2AHAqQUK8rVO0gG5uQC MnHHcpc7J7pEB8E4ZecoOxko1y q1pqEXRbCSaqJ02aeXZrd0K1 EWPgxJR6SDOzjTfyVnJybZ92Wz c+XVFonXprp5ZxDcrbi3ixb4ex mOo6HtOzGCXtjmLfrWwhVSJ3 c1YxAp94U32tYZfuRVSyXPSvJD JlVHEioWhsjd4tfF9cFd5+PGNv jFS6xOL9eW5oVeQgVrX4VKsa E537GxCukFAmGqxfp6ase8rckO h7YgAwAXIecwHiuDaqIRX1f4Oc Jj98Y9OrnSjam8TjRaa4xa78 hZQwg2Y4tTR7K8RrQOUjfcdwoG PreSelTR8xSJKmyeamYIFwvF3u QDLzD7v6VdItZyH7FVqzY3Cj ziO1LOFvnIGlRDEhnGTPcM4xlm chj7rwsxnfRnVbDWTqOIz6UPc7 WSBrmGfrEeVwZYO0TsG5ZHS6 yYYwpX6qfBrfbkvikL1dLtk+UG m3t7njfGAkNG0zpKZ5AT44LN60 rYEyj3N8eOW3B9BtUVWnmard cvhmuIJ8IEQpHIIbdT97Pa2hnD wxUd4eUZVwIXO6XWHwuJUkB1Xr bM1rBqLzSTVqHCCmH0WogMZo TXbvU266LEurTwR2IJRefgCgD5 YaFZXjgRpoSiE0u4V9Rl3DII90 ON45ER62rCMur2C0dHV4F8Ek BYYbeogwqvbjqDQ2SYQkCSHcjG 85Tc9pcFraNy5tMMBaMCS1XMRo hFKyY2StoH9nGzWwXHZbSHUr I5AzwSFbZOspV827CGrgJeX5LN BnvuKgY7EoCTHoaTgsKlQ0a7K5 Bv9JXy44GQ28ZH74eAMuo4X6 hDK1B0UzYQNgpajmehkxdYS7SZ WzBOYqlI73Cq3fvLbwTn3bWUAp RSN8IBSxcIJhQ5KpiN8oYjXa RQNiKQRvR9UqdUWnACtkT234UN rdIsK5SHJviuAeD3TnNYMqeIrw ThS2j6P0Tg4YUMyuhsp4P5Zj PjwvdHI+KS92BSKaPL62tFZtpM Klm9dneMm1QdGzZELmVIV7wObz YLzas8AcZKVoD39mxDCbs9O5 IGN (more content not included)... [facility] Coding Summary HTMLBase 64 HqvtersxSHr1pHc+PGhlYWQ+PE 2EXJUpM47mmCYniH2XY0uKIJ4R QPXXMSPPYA7ZDD8opJY9GRbrG1 VybiAv HthuuSThNC36WHt0TED5cXwrXQ rmvG6wvLOdD9d0RxKyJK41xV25 MWnbCRGjTtO0GdIenjoplMPw B8wvBbHtnHIhGjg+PHRhYmxlIH wiXRPoKHklANVrTuWxrWevDB0o Zq0uOMRnVCYpvJrnsWYaPvGb w1kdYWJgFJzlQZ1leIdyM4ZroY H2SKHjk3q4Zn59sZC+PHRkIHN0 iWveZUtdk418WfFtc9wxEBD3 mLPjZDghYPL4O52nh0V7WUHsQJ FkAJP8eZG9kU8tvBjlxqyyM2Sh rBEoEtA8TCB4oLDraJ5qdTdv ppzglS3eEof+O06WAN7XLAATHX 6FGlj3B8PiXtarwSG+AT48GUVc VM44rUAeyHJze1aogGi5RmSk AAIsXQT2gAyrVMulw3KhLDCzW2 5rxPXil0Q9XQHtgKwlhXIcHbWf yTG0cY7mFQkzlrrjs0aiavvc Wzhdo8aopt60bG70P44xLDvnED ArLEX0ASApGTFwlGedvq3hjX9l Ii8+BGbtt6wgo1ycjNu7GkYo ILCjgpHvhYthVZK2k1VdUo97Z3 VnfSfub5YdDps6cn67eQPcp1S7 vHD8WWfmJHWpkP1fDFyjArT6 OFExZrYihJ84sVKvGJriZr8aaD zduPhiME0eKLNutgmaMNBliW4u XUJpnZHwwXgcCY6eZQWuyplo b463XcZvTKR2FQDwzUBhA2JhyW 8sYmTsVYTnKOPyH4XxtITmQJll M857XOxtTfX8ZQQwznAgR2Pt DVWzrQseSlN7f1G6Za0Qv1Esra gjBFG2GPelKGA2VnJ9IkUzLkE1 S0RfZek4XUVosOuvHF3mP1Lr BIPurpdickzwrGN7RQLbINNwzM 98hRBqDFoaCe0ot7H5y624MQAy XBGfsG81Jv8xuGznIBCvsUPK nH7jufuxe2ggnncqXdQrHCMzKO c9BBt2OVUuqMywEvNjKGB0ZiF6 BUR9cLWdvU1ohOhlekbqtE9r Oyc+H46fkA0jGWH4VYD8lbbdLK XlkhEiFW78BX65G0OnJdwtaSBl bGU+UTJjfaGteCwtLA3nPlSa v5mzz0FrBKygQ2YkOYVmJAncLv j0WHDiBZA4gFS9zI9kUPOpCXlp g7C5iXF2V3PhbsIisn9an5ly QDSkIXqwX96puIVez7J2UNGijR I0IRJldMyoCsPiuS23Bgk+PGNv sOdns2HhZzuvu3frg0kkqRz3 HtYhLSRljcWvzPcfZJQ0b0NvCr 38J02jXFifUTWmYBBxWPXdDKRq nQpsgb8xmP5mZg7+PGNvbCB3 gHS2hF6zZAWbSsJ3ZYcjM528Wm FloVJaGopgj6xkr2iynSv4YzYe ARMmgwDhkDhnZKO6s6CvAl14 T96uWFeiXOLfFOLyNEJcNYBqhD kjgy2azL7uXc4+OQ2bc4apaj29 sF92iPE+QVHxZMC3bQmmAKpi HEZvaD5aJGqhBqG1IBRdAhWtsA 64fBLmRWbyEo6rlFxoyCjoAZ1b ZLOiatuvb112HqNsf3qbFLTr sLJtRXjiHCP4W11pp2E7MINpZM UiFUJ4vXX6zS2quVzupatweVSb vCddtmVrgKawFMbzQTweB575 IHRvcDsnPlBhdGllbnQgTmFtZT i3F6QfJvj8THVamTodRK5zaTIc EKvmIs5ajLsyeKyrYT1wIOWp fhfol144ZnUej9odQWZjoCQxQL myZKH8J48yi5H1UPCaKAZnCVH9 fEC6sG4ahTaaysssqNOjkJpa pbMznWewVYgxXAzxW393SIZvnV vePqFlmjViVXYvfSB1RC18TE26 hZZud1E9mJA9K6KhLPBotbfd tsygaCH7XIEdQAHamV78Ll5leG xjZq4sPPTgCPW3EBDcxGOdE4Io vD2zNrOuSKYeSRMoZ2RafOMr RCsxG001AIrlSiR2QOUtxlHpZ3 WlJLMagAodBrL5y9W8Vh4GT1Z2 AY37RK70cVEju3V6tTE1Z6Nr EMYhykumbdfnrBQ1ZIFgCZHdqK 48Qh1rdVwwFg0jGKDaQWB3EPVl vNKjF2CnjG9sMuRnBGCnYMJk T2VpvNUnWNkwI438DJtmYrU3MH FfjwOjC0CyKAGieDgyPeY0p1L5 Sz2VSRq9BW69HF26oCAbg1J7 yZO9R1BkLNCbxfwinmxglDI4ZH EiPCHbtT97Wi4jmWmuHn2dIBVu EOF2FENgvZVmK3KzmC7cYiGr OGEwQCDpQ8JysQWtNOppL097HQ rbGzR3JWMzcaTzD4AzDCWuyUpe LoZ4s2A1Ry0EYICbFW68PEO1 tGN6KS12YO74O3EkQosabOJmhV U+PHRhYmxlIHdpZHRoPScxMDAl IdAceQqxRC9fVx2nUCMwRRRx wYviwYGwSlUky5qgQROcETphRT 7fzFxuQ8JqnEO8LNDzs2x2Ig64 G16mQ2BdaRL+NXQmyYB6eVD9 rG4sAqHaCcU3OEaxT792SpCgiS NjNzsrg8gcn3gxlSf8PfW9TGIz pkIckRvgPKV9f5EqHq76F08o IHdpZHRoPSIxNSUiIHZhbGlnbj 8pqK6gCt8+FJXjtDG4wNQ0hP2h PmTrXbU5EHxmD060YvZviYNv Awsff1rja1aqwTx3EtKxPXDtwt IhqMsyUWR5g7OaKc35N7HnpUkl v4OwLjp7du36lDLhx0N4zAV0 S7VdSLZonhdhjSAsxKcuJL3nNM DdntpfCPEmqU6iSULlJ0i1HtKr NvY1GGwcW6KerwE1RSFehLPi WKveWKR9U50rr1E3SNBcSHTrTU E4yFQ7rU1kbZjsoojykTDohPdn utPlwDxpQIynXShhH174LORf dBalJWCvvD8sGCFkaYBcgWfkAD 4wNTBpbjsnPlNURUlOLCBWSVJH SN2BJCOILDP2N4KwKsu0NKMi vMeqXU0jnPWuCWqvCi9byWwueS ylIJ0wMFBdruncDFPnsJ0xCBWu kDWxpKtoBM5lGMFgvtejl241 HqDwYHQ2DATlzIPyQ1GpsZ4yQh DbKTXlXTWqZ8ViaYAfDJymS479 YVdqDvK9RLVsssFiV1XhEHJt cUuqJpG9w0X9Vw7yLL5oXZ1mFK usGX75DD52cQIqr2V1yKI0O3Cg PUSfrqxhhdfbcWF4TUPbHGQn uF92iEYjFGfmEq9xk7M0o882LI AiXAJurH40Mm8eaMtjETZynIGL kN7tmvhvj2tdqjmnWoBtTHRc MKe9PNr5FLTuvKhlRfNrWIE1Mr U4SNP2vXYhpS2trRcwjpohdG6l Oyc+DcfxWTNrvtR8I3FpSuz8 CHGkfRbqOA4ccQDaUPntDa6wgV xdrBmoFM6hSGZrutmxUWVglN0y ZVAqfOBqjCqhHU9jFPUgszvn u430YySuLDX2WZJqpGUfH0WepF 7pGfSvHGHjXLNfQ9XecUNwICce R297KQxxDoX2XQVubiTdK7Sm RWMziTclVoJ8j0D1Yx9IIM6RJF G8P5ArTjt3NKEwtYnuTP3mkPJk TPklFh4kzEhsmMmnXE7nZJLc ayiqKZJmtN4fTDNeaDPmhKzvQE 1sZRRttejgb502TmMmITY8XKSv oWYjY9JsiZ5cQcCcRGXoLOOt D2IxfDKtQUbtY592RBacKkW8RB MecfIdQ8EuLGAxlZuoJlY0w9P8 Fa4QaLHgL1CpT8c5W1IlXkde dHI+QA29CNJhFU21wZFduLFtu8 owbVi8GpYlDICqQCI6nIvdABep a0IvACZdL85fbDIof9U0QKYo qRxtcUIjVsIpmGC4mN7dEHpvkr ndd3zgrnxcQdrac7alle61zF80 W40xPLupFOZzGEPrRYOsGLJg vImgvo9ovW3aYj5+JOTxpQL7xW D9wJ1bWdEoYtT6CQbuG338TiDd rAXvMivvw5dzh7schOq7QpRt EJUwmaMydIlpBRP6o9LoUl13C4 9sIHdpZHRoPSIyMCUiIHZhbGln va0dfE4nUb5+GC1po0bmsc83 kI46uFH+XCImUPU1tGsqPOzzBD DzxX8fLHmpHvA2HPLcAcRwkY51 fBKtTLfbOq4skYgvhIpqCC5t PSNgtqupu122TmThp3foTHGysI AsHCtfLXR9A27ct2U6CVIcHRJd WVZ5pNN8pG2xnUfbamnmlFTi cBgpoqHabNevPQraTTqtN245TH MqcNpiUjHzmEPgJ9rfywSNGN6v OjwvdGQ+YSUgKIM5dNclZAng WTWaeO8yRWHeN9n4VjVkQuV6DQ knL6SprmF9TEIapGGyYBWcnEDA bW9kepcpv1zpveiwVyDgARMw IVx6TNw5RBOhxNdnJlYmDGX8Sh L5HQZ9wECtbB3nmUejjletgD8h Oyc+RklOOjwvdGQ+PHRkIHN0 wPygRSscNTGssH4pGTXaT6g8Us UoDwV3WDsnM6TnkjT3AOPrkNXa BRPkqYHGhX0vdzmch1drkdde TwMeJXDeGQz7UDz7VIQgwUwcCa LrRUS9UdV1KAL8vQIsoN9sfQwc zahgqD7hMnm+TVJOOjwvdGQ+ IKNjJKH8jTfyYAmvGXDrqD0oDA YgC6a8JyOjMyV8QKxoB0IwhoO6 CJUuiQKiVQAwwDOKoU3ogcer f0dvsphpDfJqAZUuRKl3BQn2XN LgeNuiXoXxYDT6ZnT3LEK6cGCf lQ9jkCveqzhvxS4pBst+UGF5 UEQ0OI00YG88U2TcFdazgGNdaA U+PHRhYmxlIHdpZHRoPScxMDAl TnUygKcpLI1vBb8pBBJnTZLa bGx (more content not included)... Normal [facility] ED Clinical Summaryon 2021 ED Clinical Summary [facility] - Emergency Department [address] [place] [address] ED Clinical Summary PERSON INFORMATION Name: ZULEIKA WYATT Age: 31 Years Sex: FEMALE : 1990 MRN: Acct#: Visit Reason: Rib/trunk pain-swelling; ABD PAIN Arrival: 11/13/2021 16:30:24 Discharge: 11/13/2021 18:01:00 LOS: 000 01:31 Check In: 11/13/2021 16:30:24 Checkout:11/13/2021 18:01:00 Address: [address] [place] [address] [address] [facility] [address] PCP: Andie Stoddard PROVIDER INFORMATION Provider Role [...] With: Address: When: CUONG ORTIZ [address] [place] [address] Within 1 to 2 days Comments: Diagnosis [...] results be sent to Dr. Ortiz, your OPHTHALMIC PHOTOGRAPHER physician. She will contact his office tomorrow [...] Patient/family/caregiver verbalizes understanding of instructions given Comment: [facility] ED Note-Nursingon 11-13-2021 ED Note-Nursing pt [...] 6 with steady gait and no assistance. [facility] ED Patient Summaryon 022 ED Patient Summary [facility] - Emergency Department [address] [place] [address] PATIENT DISCHARGE INSTRUCTIONS Patient Information Name: ZULEIKA WYATT Age: 31 Years Date of : 1990 Reason For Visit: Rib/trunk pain-swelling; ABD PAIN Arrival Time: 11/13/2021 16:30:24 Primary Care Physician: Andie Stoddard Attending Physician: Gamaliel Wyman MD Comment: Visit Diagnosis: Diagnoses This Visit Elevated blood pressure reading (R03.0) History of abdominal pain (Z87.898) at early stage (Z34.90) Rib/trunk pain-swelling ([id number]) Prescription Information: If you have been given a prescription for narcotics, seek immediate medical attention if you have any difficulty breathing or any sudden status changes such as confusion and sleepiness. If you or anyone you know is experiencing suicidal thoughts, mental health, alcohol and/or drug addiction problems; contact the [facility] 07/01 Crisis Hotline -Text 4HOPE to 004054. If you received any narcotics, sedation, or [...] documents With: Address: When: CUONG ORTIZ [address] [place], [place] [id number] Within 1 to 2 days Comments: Diagnosis [...] results be sent to Dr. Ortiz, your OPHTHALMIC PHOTOGRAPHER physician. She will contact his office tomorrow [...] and treatment you received today in the [facility] Emergency Department were for an urgent problem and are not intended as complete care. It is important for you to follow up with a doctor, nurse practitioner, or physician?s speech pathology assistant for ongoing care. If your symptoms [...] so we can reach you if necessary. [facility] Emergency Department has provided you with a complete list of medications post discharge. Please inform your signal apprentice/provider of your visit and for further instruction [...] Temporal: 3 (more content not included)... Normal [facility] hCG Quantitativeon 2 hCG Quantitative 91094.0 mIU/mL High 0.0-0.6 [facility] Comment on above: Order Comment: Lucy whitney call or fax results to Dr. Ortiz's office Result Comment: Resu lt confirmed by dilution Post-Menopausal Reference Range is: 0.1-11.6 mIU/mL Performed By: #### 7 [id number] #### [facility] (DEFAULT) [address] [place] [address] Coding Summary.on 12-19-2018 Coding Summary. CODING DATE: 019 FINAL [facility] DSC STATUS: Left Against Medical Advice [...] Saved: 12/19/2018 10:35 am Normal [facility] ED Clinical Summaryon 2018 ED Clinical Summary (Inserted Image. Elena ble to display) [place] [id number] ED Clinical Summary Person Information Name: ZULEIKA VILLALTA/[facility] Age: 28 Years : 1990 12:00 AM Sex: Female Language: PCP: Marital Status: Phone: [phone] Visit Id: Visit Reason: Test; MENSTRUAL PROBLEMS [...] 12/15/2018 5:58 PM 12/15/2018 5:58 PM ADDRESS: [address] [place] [address] [address] [place] [id number] PHYS DOC NOTES: MEDICAL INFORMATION: Prescriptions Given: PATIENT EDUCATION INFORMATION: Instructions: Follow up: DIAGNOSIS: Normal [facility] ED Patient Education Noteon 12-15-2018 ED Patient Education Note Normal [facility] ED Patient Summaryon 019 ED Patient Summary (Inserted Image. Elena ble to display) [place] [id number] Patient Discharge Instructions Person Information Name: ZULEIKA VILLALTA Age: 28 Years Arrival Date: 12/15/2018 4:37 PM Discharge Diagnosis: Primary Care Physician: Provider Information Primary Provider: Advanced Vegetable Trimmer:None The exam and treatment you received in the Emergency Department were for an urgent problem and are not intended as complete care. It is important that you follow up with a doctor, nurse practitioner, or physician?s speech pathology assistant for ongoing care. If your symptoms [...] opioids can be used to help relieve zwgacrwy-ic-yqvesx pain and are often prescribed following a [...] be struggling with addiction, tell your health landcare officer and ask for guidance or call [facility]?S National Helpline at 8-630-321-GFMO. d Source: [place] Department of Health and Human Services/Center for Disease Control & Prevention [facility] Medications Given: Medication Dose Route No medications found. Medication Information: Comment: Pharmacy Information: Thank you for choosing [facility] Patient Education Materials: JADEN Jacome [place] , have received the following patient education materials/instructions and have verbalized understanding: Patient Education Materials: Follow-up Instructions: Prescriptions: Patient Signature __ Date Clinician/Nurse Signature Date 12/15/18 17:58:10 [facility] Progress Note-Nurseon 2018 Progress Note-Nurse Patient: JADEN [...] care of her daughter. Normal [facility] U BetaHcg Qualon 12-15-2018 HCG.beta subunit (U) [Moles/Vol] Negative Normal [facility] Comment on above: Performed By: #### 2 [id number] #### [facility] [address] [place] [address] UA With Cult Reflexon 2018 Bacteria LM Ql (Urine sed) TRACE Normal Trace [facility] Comment on above: Performed By: #### 2 [id number] #### [facility] [address] [place] [address] Bilirubin Ql (U) Negative Normal Negative [facility] Comment on above: Performed By: #### 2 [id number] #### [facility] [address] [place] [address] Clarity (U) CLEAR Normal Clear [facility] Comment on above: Performed By: #### 2 [id number] #### [facility] [address] [place] [address] Color (U) YELLOW Normal Yellow [facility] Comment on above: Performed By: #### 2 [id number], [id number] #### [facility] [address] [place] [address] Epithelial cells.squamous LM.HPF (Urine sed) [#/Area] 0-2 Normal 0-2 [facility] Comment on above: Performed By: #### 2 [id number], [id number] #### [facility] [address] [place] [address] Glucose Test strip (U) [Mass/Vol] Negative Normal Negative [facility] Comment on above: Performed By: #### 2 [id number], [id number] #### [facility] [address] [place] [address] Hemoglobin Ql (U) Negative Normal Negative [facility] Comment on above: Performed By: #### 2 [id number], [id number] #### [facility] [address] [place], [place] [address] Ketones (U) [Mass/Vol] Negative Normal Negative [facility] Comment on above: Performed By: #### 2 [id number], [id number] #### [facility] [address] [place] [address] Concordia.plasma/[place] .RBC (Bld) [Mass ratio] 0-3 Normal 0-3 [facility] Comment on above: Performed By: #### 2 [id number], [id number] #### [facility] [address] [place] [address] Nitrite Ql (U) Negative Normal Negative [facility] Comment on above: Performed By: #### 2 [id number], [id number] #### [facility] [address] [place] [address] pH (U) 6.5 [pH] 5.0-9.0 [facility] Comment on above: Performed By: #### 2 [id number], [id number] #### [facility] [address] [place] [address] Protein (U) [Mass/Vol] Negative Normal Negative [facility] Comment on above: Performed By: #### 2 [id number], [id number] #### [facility] [address] [place] [address] Specific gravity (U) [Rel density] 1.010 1.005-1.03 0 [facility] Comment on above: Performed By: #### 2 [id number], [id number] #### [facility] [address] [place] [address] UA Spec Desc Clean Catch Normal [facility] Comment on above: Performed By: #### 2 [id number], [id number] #### [facility] [address] [place] [address] Urobilinogen Qn (U) 0.2 {Pamela'U}/dL Normal 0.0-1.0 [facility] Comment on above: Performed By: #### 2 [id number], [id number] #### [facility] [address] [place] [address] WBC Auto Ql (U) Negative Normal Negative [facility] Comment on above: Performed By: #### 2 [id number], [id number] #### [facility] [address] [place] [address] WBC LM.HPF (Urine sed) [#/Area] 0-5 Normal 0-5 [facility] Comment on above: Performed By: #### 2 [id number], [id number] #### [facility] [address] [place] [address] Auto Diffon 12-12-2017 Basophils Auto #/vol (Bld) 0.1 E3/mcL Normal 0.0-0.2 [facility] Comment on above: Order Comment: Order Added by Discern Expert. Performed By: #### 2 679257 ####KADEN BairdGvzGzik[address] [place] [address] Basophils/100 WBC Auto (Bld) 0.9 % Normal 0.0-2.0 [facility] Comment on above: Order Comment: Order Added by Discern Expert. Performed By: #### 2 370940 ####KADEN BairdJiiUvyg[address] [place] [address] Eos Absolute 0.0 E3/mcL Normal 0.0-0.7 [facility] Comment on above: Order Comment: Order Added by Discern Expert. Performed By: #### 2 517990 ####KADEN BairdJglCcsh[address] [place] [address] Eosinophils/100 leukocytes 0.4 % Normal 0.0-11.0 [facility] Comment on above: Order Comment: Order Added by Discern Expert. Performed By: #### 2 543792 ####KADEN BairdWzuBlrn[address] [place] [address] Lymphocytes 1.4 E3/mcL Normal 1.2-3.4 [facility] Comment on above: Order Comment: Order Added by Discern Expert. Performed By: #### 2 208416 ####KADEN [address] [place] [address] Lymphocytes/100 leukocytes 16.6 % Low 20.0-55.0 [facility] Comment on above: Order Comment: Order Added by Discern Expert. Performed By: #### 2 660829 ####KADEN [address] [place] [address] Fountain Absolute 0.5 E3/mcL Normal 0.0-0.7 [facility] Comment on above: Order Comment: Order Added by Discern Expert. Performed By: #### 2 464111 ####KADEN [address] [place] [address] Monocytes/100 leukocytes 5.5 % Normal 0.0-10.0 [facility] Comment on above: Order Comment: Order Added by Discern Expert. Performed By: #### 2 762705 ####KADEN [address] [place] [address] Neutro Absolute 6.7 E3/mcL High 1.4-6.5 [facility] Comment on above: Order Comment: Order Added by Discern Expert. Performed By: #### 2 684294 ####KADEN [address] [place] [address] Neutro Auto 76.6 % High 37.0-75.0 [facility] Comment on above: Order Comment: Order Added by Discern Expert. Performed By: #### 2 120385 ####KADEN [address] [place] [address] CBC w/ Auto Diffon 8 Erythrocyte distribution width Auto Ratio (RBC) 15.0 % High 11.5-14.5 [facility] Comment on above: Performed By: #### 2 248107 ####KADEN [address] [place] [address] Erythrocytes (RBC) 4.94 E6/mcL Normal 3.90-5.40 [facility] Comment on above: Performed By: #### 2 556240 ####KADEN [address] [place] [address] Hematocrit (HCT) 40.0 % Normal 36.0-48.0 [facility] Comment on above: Performed By: #### 2 715781 ####KADEN [address] [place] [address] Hemoglobin mass conc (Bld) 13.0 g/dL Normal 12.0-16.0 [facility] Comment on above: Performed By: #### 2 639745 ####KADEN BairdAfnLujo[address] [place] [address]205 MCH 26.2 pg Low 27.0-31.0 [facility] Comment on above: Performed By: #### 2 035618 ####KADEN [address] [place] [address] MCHC mass conc (RBC) 32.4 g/dL Low 33.0-37.0 [facility] Comment on above: Performed By: #### 2 781800 ####KADEN [address] [place] [address] MCV 81.0 fL Normal 78.0-100.0 [facility] Comment on above: Performed By: #### 2 802362 ####KADEN [address] [place] [address] Platelet mean volume (PMV) 7.5 fL Normal 7.4-11.0 [facility] Comment on above: Performed By: #### 2 732743 ####KADEN BairdKapCpex[address] [place] [address] Platelets 347 E3/mcL Normal 130-400 [facility] Comment on above: Performed By: #### 2 832471 ####KADEN BairdDnuCipi[address] [place] [address] WBC (Leukocytes) 8.7 E3/mcL Normal 3.6-11.0 [facility] Comment on above: Performed By: #### 2 254493 ####KADEN BairdFokHuef[address] [place] [address] CMPon 12-12-2017 Alanine aminotransferase (ALT) 14 Int._Unit/L Normal 10-40 [facility] Comment on above: Performed By: #### 2 206347 ####KADEN [address] [place] [address] Albumin 3.8 g/dL Normal 3.2-5.0 [facility] Comment on above: Performed By: #### 2 883557 ####KADEN [address] [place] [address] Albumin/Globulin Ratio 1.0 {ratio} Low 1.1-1.9 [facility] Comment on above: Performed By: #### 2 851298 ####KADEN [address] [place] [address] Alk Phos 75 Int._Unit/L Normal 42-121 [facility] Comment on above: Performed By: #### 2 579821 ####KADEN [address] [place] [address] Aspartate aminotransferase (AST) 18 Int._Unit/L Normal 10-42 [facility] Comment on above: Performed By: #### 2 571166 ####KADEN [address] [place] [address] Bili Total 1.0 mg/dL Normal 0.2-1.0 [facility] Comment on above: Performed By: #### 2 843557 ####KADEN [address] [place] [address] BUN/Creatinine Ratio 12.5 ratio Normal 5.4-30.0 [facility] Comment on above: Performed By: #### 2 210451 ####KADEN [address] [place] [address] Creatinine 0.8 mg/dL Normal 0.6-1.3 [facility] Comment on above: Performed By: #### 2 107263 ####KADEN BairdUykOvwf[address] [place] [address] Globulin 3.8 g/dL Normal 2.0-4.0 [facility] Comment on above: Performed By: #### 2 671783 ####KADEN [address] [place] [address] Protein 7.6 g/dL Normal 6.4-8.3 [facility] Comment on above: Performed By: #### 2 894973 ####KADEN [address] [place] [address] Urea nitrogen 10 mg/dL Normal 7-18 [facility] Comment on above: Performed By: #### 2 674206 ####KADEN [address] [place] [address] Calcium 9.3 mg/dL Normal 8.4-10.2 [facility] Comment on above: Performed By: #### 2 794096 ####KADEN [address] [place] [address] Chloride 105 mmol/L Normal 98-107 [facility] Comment on above: Performed By: #### 2 174686 ####KADEN [address] [place] [address] CO2 25.1 mmol/L Normal 24.0-30.0 [facility] Comment on above: Performed By: #### 2 771451 ####KADEN [address] [place] [address] Glucose mass conc 101 mg/dL High 70-99 [facility] Comment on above: Performed By: #### 2 363662 ####KADEN [address] [place] [address] Potassium molar conc 3.4 mmol/L Low 3.5-5.1 [facility] Comment on above: Performed By: #### 2 571818 ####KADEN [address] [place] [address] Sodium 140 mmol/L Normal 136-145 [facility] Comment on above: Performed By: #### 2 533404 ####KADEN [address] [place] [address] Lipase Levelon 12-12-2017 Lipase Lvl 30 U/L Normal 8-57 [facility] Comment on above: Performed By: #### 2 832878 ####KADEN [address] [place] [address] UA Completeon 12-12-2017 UA Blood 3+ Normal Negative [facility] Comment on above: Performed By: #### 2 092406 ####KADEN [address] [place] [address] UA Bacteria Trace Abnormal None [facility] Comment on above: Performed By: #### 2 478442 ####KADEN [address] [place] [address] UA Clarity SltCloudy Abnormal Clear [facility] Comment on above: Performed By: #### 2 951716 ####KADEN [address] [place] [address] UA Hyal Cast 0-2 Normal 0-2 [facility] Comment on above: Performed By: #### 2 086278 ####KADEN IayYysy[address] [place] [address] UA Leuk Est 3+ Abnormal Negative [facility] Comment on above: Performed By: #### 2 605557 ####KADEN DjtRdle[address] [place] [address] UA Mucous Many Abnormal Trace [facility] Comment on above: Performed By: #### 2 527107 ####KADEN IdoJsho[address] [place] [address] UA Nitrite Negative Normal Negative [facility] Comment on above: Performed By: #### 2 449939 ####KADEN NovLzwb[address] [place] [address] UA pH 5.0 Normal 4.6-8.0 [facility] Comment on above: Performed By: #### 2 113681 ####KADEN ZreVppb[address] [place] [address] UA Protein 1+ Abnormal Negative [facility] Comment on above: Performed By: #### 2 051140 ####KADEN EarHhom[address] [place] [address] UA Spec Grav 1.026 Normal 1.003-1.03 0 [facility] Comment on above: Performed By: #### 2 449583 ####KADEN PctBeaw[address] [place] [address] UA Squam Epithelial 0-5 Normal 0-5 [facility] Comment on above: Performed By: #### 2 054937 ####KADENMorelia BairdCgnXtuq[address] [place] [address] UA Urobilinogen 2.0 mg/dL Abnormal [facility] Comment on above: Performed By: #### 2 803060 ####KADEN [address] [place] [address] UA WBC >50 Abnormal 0-5 [facility] Comment on above: Performed By: #### 2 252778 ####KADEN [address] [place] [address] Urine, color Yellow Normal Yellow [facility] Comment on above: Performed By: #### 2 717541 ####KADEN BairdCwhVnnx[address] [place] [address] Urine, erythrocytes 20-50 Abnormal 0-3 [facility] Comment on above: Performed By: #### 2 377241 ####KADEN [address] [place] [address] Urine, glucose Negative Normal Negative [facility] Comment on above: Performed By: #### 2 075489 ####KADEN [address] [place] [address] Urine, ketones presence Trace Normal [facility] Comment on above: Performed By: #### 2 274845 ####KADEN [address] [place] [address] Urine, urobilinogen Negative Normal Negative [facility] Comment on above: Performed By: #### 2 579223 ####KADEN [address] [place] [address] eGFRon 12-12-2017 eGFR AA >60 Normal [facility] Comment on above: Order Comment: Order Added by Discern Expert. Performed By: #### 2 247621 ####KADEN BairdAewLgyg[address] [place] [address] eGFR (non-black) mL/min/{1.73_m2} Normal [facility] Comment on above: Order Comment: Order Added by Discern Expert. Performed By: #### 2 960338 ####KADEN [address] [place] [address] HISTORY PHYSICALon 8 HISTORY PHYSICAL HNO ID: [id number] thor: Clara Olivia WolfeService: Maternal MedicineAuthor Type: PhysicianType: HANDPFiled: 12/02/2017 9:04 AMNote Text:STANDARD [facility] [place] DOCUMENTDISCHARGE SUMMARYPatient Name: Zuleika Gtz Date: 11/30/2017 [...] 4 weeks with provider.Clara Jama, DO Normal [facility] PROGRESSon 12-02-2017 PROGRESS HNO ID: [id number] thor: Marie Lema (Res) LendeService: ObstetricsAuthor Type: [...] with more than 50% of the total hghq-oa-xtlmovef of the visit in counseling / coordination [...] decreasing.Ambulating without difficulty.OBJECTIVE:PHYSI GEN EXAM:Heart: RR, S1, O8Qayvj: clear to auscultationAbdomen: Soft Bowel sounds present [...] December 02, 2017 : 5:45 AM Normal [facility] SOCIAL WORKon 12-02-2017 SOCIAL WORK HNO ID: [id number] thor: Meredith Ramsay (Sw)vice: Social WorkAuthor Type: Social WorkerType: Social WorkFiled: 12/02/2017 12:25 PMNote Text:SOCIAL WORK CONSULT NOTESERVICE DATE: 12/02/2017SERVICE TIME: 1015Referred by: Jose for visit:Maternal/ - adjustment to conditionLiving Arrangement: HomeLives With: PartnerFinancial Resources: DisabledPrimary Contact:Extended Emergency Contact Information DARRELL BRANCH IIPratrium health [facility] centeradelaida Emergency Contact: No,ContactRelation: OtherSupportive: YesOther Important Patient [...] hospital. (FOBparents are Anamika Munoz of [address] [facility] , [facility]).Per pt and FOB, all needed baby supplies and equipment are at the [facility] and a nursery has been set up.Per pt, name of baby girl is Martha Branch.Pt states she is on SSI and WIC.Pt shares that she is in ongoing counseling at [facility] in [place] and has appointments 2 x per month.Discussed with pt and FOB signs and sx of depression; safe babysleep and discussed ways to deal with crying infant. Pt again states sheis going to rely on her support system.No additional issues identified at this time. Encouraged pt and FOB toutilize services through [facility]. Providedcontact information.Outcome/Recomm endations:[facility]ime spent (minutes): 60SIGNATURE: CARLA Goncalves PATIENT NAME: Zuleika Hernandez: December 02, 2017 : 11:10 AM PAGER/CONTACT#: Debo [facility] ANES INTRAOPotunde 12-01-2017 ANES INTRAOP HNO ID: [id number] thor: Terrance Lockhartervice: AnesthesiologyAuthor Type: Nurse AnesthetistType: Anesthesia IntraOpFiled: 12/01/2017 9:41 AMNote Text:ANALGESIA PROGRESS RECORDCATHETER REMOVAL/END OF CASESERVICE DATE: 12/01/2017REMOVAL DATE AND TIME: 11/30/2017, 1953DELIVERY DATE AND TIME: 11/30/2017 at 5:49 PMCATHETER REMOVAL:Catheter Removal: See [facility] Nursing noteSIGNATURE: Terrance Contreras APRN.CRNA PATIENT NAME: Zuleika Hernandez: December 01, 2017 : 9:40 AM PAGER/CONTACT #: Debo [facility] ANES Keke 12-01-2017 ANES POST HNO ID: [id number] thor: Terrance Leblanc) Richyervice: AnesthesiologyAuthor Type: Nurse [...] by Anesthesia Service: NoneOther Remarks:SIGNATURE: Terrance Contreras APRN.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 PATIENT NAME: Zuleika LambATE: December 01, 2017 : 9:42 AM PAGER/CONTACT #: Debo [facility] PROGRESSon 12-01-2017 PROGRESS HNO ID: [id number] thor: Marie Lema (Joaquín) LendeService: ObstetricsAuthor Type: [...] decreasing.Ambulating without difficulty.OBJECTIVE:PHYSI GEN EXAM:Heart: RR, S1, B0Cileo: clear to auscultationAbdomen: Soft Bowel sounds present [...] December 01, 2017 : 6:40 AM Normal [facility] ABO/Rh Confirmationon 2017 ABO group Nom (Bld) A Normal [facility] Comment on above: Performed By: #### A JESSIE #### [place] [address] RH Type Positive Normal [facility] Comment on above: Performed By: #### A JESSIE #### [place] [address] ANES PREOPon 11-30-2017 ANES PREOP HNO ID: [id number] thor: Aaron (Chiara) EarleyService: AnesthesiologyAuthor Type: Nurse [...] of Sleep Apnea: DeniesHematocritDate Value Ref Range Hepvnv5611/30/2017 32.3 (L) 34.1 - 44.9 % Final Platelet CountDate Value Ref Range Hayvab3811/30/2017 193 182 - 369 thou/cmm Final Vitals: 1 11/30/934018 143BP: 142/75 138/81Pulse: 75 81Resp:Temp: 36.6 ?C [...] as needed. Disp: Rfl:Inpatient medications reviewed in [facility].I have interviewed and examined the patient. I have reviewed the medicalrecord , pertinent consults and/or the pre-anesthesia evaluation,pertinent labs, and test results.Significant changes in the patient's condition since the History andPhysical, not otherwise documented in primary service progress notes: [facility] contains updated information obtained within 48 hours ofSurgery/Procedure.SIGNAT URE: Hema Cuellar APRN.CRNA PATIENT NAME: Zuleika LambATE: November 30, 2017 : 12:13 PM : 1990 Normal [facility] Auto Diffon 11-30-2017 Basophils Auto #/vol (Bld) 0.1 E3/mcL Normal 0.0-0.2 [facility] Comment on above: Order Comment: Order Added by Discern Expert. Performed By: #### 2 854621 ####KADEN BairdJaoZbsq[address]8 [place] [address] Basophils/100 WBC Auto (Bld) 0.9 % Normal 0.0-2.0 [facility] Comment on above: Order Comment: Order Added by Discern Expert. Performed By: #### 2 051473 ####KADEN BairdQpnMvwi[address]04 [place] [address] Eos Absolute 0.1 E3/mcL Normal 0.0-0.7 [facility] Comment on above: Order Comment: Order Added by Discern Expert. Performed By: #### 2 322211 ####KADEN BairdVlrDvut[address]22 [place] [address] Eosinophils/100 leukocytes 1.0 % Normal 0.0-11.0 [facility] Comment on above: Order Comment: Order Added by Discern Expert. Performed By: #### 2 024322 ####KADEN BairdFbaLkqb8685 [place] [address] Lymphocytes 2.0 E3/mcL Normal 1.2-3.4 [facility] Comment on above: Order Comment: Order Added by Discern Expert. Performed By: #### 2 583543 ####KADEN BairdNmvDncj1086 [place] [address] Lymphocytes/100 leukocytes 22.1 % Normal 20.0-55.0 [facility] Comment on above: Order Comment: Order Added by Discern Expert. Performed By: #### 2 015027 ####KADEN BairdZlsDrdd[address]40 [place] [address] Fountain Absolute 0.7 E3/mcL Normal 0.0-0.7 [facility] Comment on above: Order Comment: Order Added by Discern Expert. Performed By: #### 2 529223 ####KADEN BairdVmaEhjn25[address] [place] [address] Monocytes/100 leukocytes 7.5 % Normal 0.0-10.0 [facility] Comment on above: Order Comment: Order Added by Discern Expert. Performed By: #### 2 560342 ####KADEN [address] [place] [address] Neutro Absolute 6.1 E3/mcL Normal 1.4-6.5 [facility] Comment on above: Order Comment: Order Added by Discern Expert. Performed By: #### 2 891418 ####KADEN BairdPpfJeff[address]252 [place] [address] Neutro Auto 68.5 % Normal 37.0-75.0 [facility] Comment on above: Order Comment: Order Added by Discern Expert. Performed By: #### 2 091758 ####KADEN [address] [place] [address] CBC w/ Auto Diffon 8 Erythrocyte distribution width Auto Ratio (RBC) 14.3 % Normal 11.5-14.5 [facility] Comment on above: Performed By: #### 2 081019 ####KADEN [address] [place] [address] Erythrocytes (RBC) 4.34 E6/mcL Normal 3.90-5.40 [facility] Comment on above: Performed By: #### 2 252506 ####KADEN [address] [place] [address] Hematocrit (HCT) 35.1 % Low 36.0-48.0 [facility] Comment on above: Performed By: #### 2 147236 ####KADEN [address] [place] [address] Hemoglobin mass conc (Bld) 11.6 g/dL Low 12.0-16.0 [facility] Comment on above: Performed By: #### 2 169379 ####KADEN [address] [place] [address] MCH 26.6 pg Low 27.0-31.0 [facility] Comment on above: Performed By: #### 2 917115 ####KADEN [address] [place] [address] MCHC mass conc (RBC) 32.9 g/dL Low 33.0-37.0 [facility] Comment on above: Performed By: #### 2 068436 ####KADEN [address] [place] [address] MCV 80.9 fL Normal 78.0-100.0 [facility] Comment on above: Performed By: #### 2 723897 ####KADEN [address] [place] [address] Platelet mean volume (PMV) 7.6 fL Normal 7.4-11.0 [facility] Comment on above: Performed By: #### 2 767159 ####KADEN [address] [place] [address] Platelets 217 E3/mcL Normal 130-400 [facility] Comment on above: Performed By: #### 2 273196 ####KADEN [address] [place] [address] WBC (Leukocytes) 8.8 E3/mcL Normal 3.6-11.0 [facility] Comment on above: Performed By: #### 2 713072 ####KADEN [address] [place] [address] CONSULTon 11-30-2017 CONSULT HNO ID: [id number] thor: Marie Lema (Res) LendeService: ObstetricsAuthor Type: [...] T0 L0 SAB1 TAB0 Ectopic0 Multiple0 Live Vahjci9Mdhr of Baby 1: Not recorded Date: 2014 [...] pupils equal, no thyromegalyLungs: clearHeart: RR, S1, O9Kncebzd: soft, nontender, no massesUterus: soft, NTExtremities: 1+ [...] Epi prn4. FB soon5. [place] [address]. anomalies- prominent cisterna magna, bilateral periventrcularnodular heterotopia, [...] EF 55%.10. H/o maternal clubfoot-s/p repair as ivrlcq89. H/o tobacco abuseSigned out to [facility] for deliveryDr. Amado reviewed with Dr. MaldonadoSIGNATURE: Marie Hassan DO PATIENT NAME: Zuleika LambATE: November 30, 2017 : 6:49 AM PAGER/CONTACT #: [phone] Normal [facility] HISTORY PHYSICALon 8 HISTORY PHYSICAL HNO ID: [id number] thor: Marie Lema (Res) JabiereService: ObstetricsAuthor Type: [...] T0 L0 SAB1 TAB0 Ectopic0 Multiple0 Live Eqcnrz8Zlbh of Baby 1: Not recorded Date: 2014 [...] pupils equal, no thyromegalyLungs: clearHeart: RR, S1, L7Heqaaoe: soft, nontender, no massesUterus: soft, NTExtremities: 1+ [...] Epi prn4. FB soon5. [place] [address]. anomalies- prominent cisterna magna, bilateral periventrcularnodular heterotopia, [...] EF 55%.10. H/o maternal clubfoot-s/p repair as mfukmx81. H/o tobacco abuseSigned out to [facility] for deliveryD/w Dr. AmadoSIGNATURE: Marie Hassan DO PATIENT NAME: Zuleika LambATE: November 30, 2017 : 6:49 AM PAGER/CONTACT #: [phone] Normal [facility] Hemogramon 11-30-2017 Erythrocyte distribution width Ratio (RBC) 13.6 % Normal 11.7-14.4 [facility] Comment on above: Performed By: #### C BC1 #### [place] [address] Hematocrit Volume Fraction (Bld) 32.3 % Low 34.1-44.9 [facility] Comment on above: Performed By: #### C BC1 #### [facility] [address] [place] [address] Hemoglobin mass conc (Bld) 10.4 g/dL Low 11.2-15.7 [facility] Comment on above: Performed By: #### C BC1 #### [facility] [address] [place] [address] MCH Entitic mass (RBC) 26.4 pg Normal 25.6-32.2 [facility] Comment on above: Performed By: #### C BC1 #### [facility] [address] [place] [address] MCHC mass conc (RBC) 32.2 % Normal 31.6-34.8 [facility] Comment on above: Performed By: #### C BC1 #### [facility] [address] [place] [address] MCV Entitic volume (RBC) 82.0 fL Normal 79.4-94.8 [facility] Comment on above: Performed By: #### C BC1 #### [facility] [address] [place] [address] Platelet mean volume Entitic volume (Bld) 9.9 fL Normal 9.4-12.3 [facility] Comment on above: Performed By: #### C BC1 #### [facility] [address] [place] [address] Platelets #/vol (Bld) 193 thou/cmm Normal 182-369 [facility] Comment on above: Performed By: #### C BC1 #### [facility] [address] [place] [address] RBC #/vol (Bld) 3.94 mil/cmm Normal 3.93-5.22 [facility] Comment on above: Performed By: #### C BC1 #### [facility] [address] [place] [address] RDW SD 40.6 fl Normal 36.4-46.3 [facility] Comment on above: Performed By: #### C BC1 #### [place] [address] WBC #/vol (Bld) 9.85 thou/cmm Normal 3.98-10.04 [facility] Comment on above: Performed By: #### C BC1 #### [facility] [address] [place], [place] [address] LD NOTEon 11-30-2017 LD NOTE HNO ID: [id number] thor: Marei Lema (Res) LendeService: ObstetricsAuthor Type: ResidentType: LANDD Delivery NoteFiled: 11/30/2017 6:19 PMNote Text: -------Attestation signed by Serenity Maldonado MD at 12/01/2017 6:04 PMI saw and evaluated the patient. I reviewed the resident's note and agree,except that patient seen by [facility] (patient has FAS, fetus with multipleanomlaies) service, consult placed to [facility] for management of labor AND delivery.Essential primip presented at 39w with PROM, had Pugh balloon AND Pitocin foraugmentaion. Late in labor noted tachycardia that improved with IVFB ANDTylenol (mother rico had elevated temp but felt warm). [facility] team for evaluation (was allowed tohave delivery to abdomen AND 30 sec delay for cord clamping). Pushed well AND hadSVD of a viable female infant (APGARS 8,9, weight of 3200g/7#1oz) over intactperineum. Uterus slightly boggy after delivery, responded to massage AND Pitocininfusion, EBL ~500cc.Serenity Maldonado MD ----OBSTETRICSDELIVERY SUMMARY - VAGINAL DELIVERYGestational Age at Delivery: [id number] Date: 11/30/2017Service Time: 1800KeeganBg Zuleika Dillard [[id number]]Labor EventsRupture Date: 11/30/17Rupture Time: 224Rupture Type: PROMFluid [...] 11/30/2017 5:55 PMRemoval: SpontaneousAppearance: IntactAnesthesia:Method: EpiduralMeasurements, Apgars:Code [place] Called: YesType of Code [place] Team Needed: PlannedA digital sweep of the [...] November 30, 2017 : 6:15 PM Normal [facility] NURSING PROGon 11-30-2017 NURSING PROG HNO ID: [id number] thor: Marguerite (Rn) ANEUDY Albarranervice: (none)Author Type: Registered NurseType: Nursing Progress NoteFiled: 11/30/2017 7:06 PMNote Text: INTRODUCED SELF TO PATIENT AND SUPPORT PERSONS. PLAN OF CARE DISCUSSED.ASSESSMENT PERFORMED. PATIENT DENIES COMPLAINTS. Normal [facility] NURSING PROG HNO ID: [id number] thor: Darcie (Rn) ANEUDY Landeroservice: NursingAuthor Type: Registered NurseType: Nursing Progress NoteFiled: 11/30/2017 10:03 AMNote Text:Patient up to shower for comfort. Boyfriend at side. On telemetrymonitors. RN remains in room. FHR difficult to maintain continuoustracing Normal [facility] NURSING PROG HNO ID: [id number] Author: Norah (Rn) KARRI Eastman Service: Nursing Author Type: Registered Nurse Type: Nursing Progress Note Filed: 11/30/2017 7:18 AM Note Text: Report given to Darcie DURAN and care transferred at this time. 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 Cat I FHRT with baseline around 160s. updated and in house.Franki Neri 2017 5:04 PM [facility] PROGRESS HNO ID: [id number] Author: Darcie (Rn) KARRI Landeros Service: Nursing Author Type: Registered Nurse Type: Progress Notes Filed: 11/30/2017 3:29 PM Note Text: Patient feeling pressure, cervical exam 9.5 cm. NICU notified. Patient feels warm, but temp 36.9. [facility] PROGRESS HNO ID: [id number] thor: Marie Lema (Res) JabiereService: ObstetricsAuthor Type: [...] pt comfortable4. s/p FB5. [place] [address]. anomalies- prominent cisterna magna, bilateral periventrcularnodular heterotopia, [...] EF 55%.10. H/o maternal clubfoot-s/p repair as tgekbu17. H/o tobacco abuse12. Cat II- Isolate late decelerations. Moderate variability. Continuingto make cervical change. Not on Cat II protocol.SIGNATURE: Marie Hassan DO PATIENT NAME: Zuleika BecerrilnDATE: November 30, 2017 : 1:35 PM PAGER/CONTACT #: [phone] Normal [facility] PROGRESS HNO ID: [id number] thor: Yolanda (Res) SnyderService: ObstetricsAuthor Type: ResidentType: [...] pt comfortable4. s/p FB5. [place] [address]. anomalies- prominent cisterna magna, bilateral periventrcularnodular heterotopia, [...] EF 55%.10. H/o maternal clubfoot-s/p repair as lszefl77. H/o tobacco abuseSIGNATURE: Yolanda Barbosa DO PATIENT NAME: Zuleika LambATE: November 30, 2017 : 1:11 PM PAGER/CONTACT #: [phone] Normal [facility] PROGRESS HNO ID: [id number] thor: Yolanda OchoaerService: ObstetricsAuthor Type: ResidentType: Progress [...] Pit per protocol3. [place] [address]. [place] [address]. anomalies- prominent cisterna magna, bilateral periventrcularnodular heterotopia, [...] EF 55%.10. H/o maternal clubfoot-s/p repair as sutnec88. H/o tobacco abuseSIGNATURE: Yolanda Barbosa DO PATIENT NAME: Zuleika LambATE: November 30, 2017 : 11:05 AM PAGER/CONTACT #: [phone] [facility] PROGRESS HNO ID: [id number] Author: Darcie (Rn) KARRI Landeros Service: Nursing Author Type: Registered Nurse Type: Progress Notes Filed: 11/30/2017 10:35 AM Note Text: Unable to find labwork for chart. [facility] PROGRESS HNO ID: [id number] thor: Marie Lema (Res) LendeService: ObstetricsAuthor Type: ResidentType: Progress NotesFiled: 11/30/2017 10:33 AMNote Text:OBSTETRICSINTRAPARTUM PROGRESS NOTESERVICE DATE: November 30, 2017SERVICE TIME: 10:31 AMSubjectivePatient with no complaints.ObjectiveLAST VITALS:Pulse BP Resp O2 Sat Temp Pain 75 142/75 18 100 % 36.6 ?C (97.9 ?F) 01/24PHYSICAL EXAM:CERVICAL EXAM:Last Exam Notes: Dilation: 1 (11/30/17 0648 : aMrie Lema (Res) Sonya)Effacement (%): 60 (11/30/1748 : [...] Pit per protocol3. [place] [address]. [place] [address]. anomalies- prominent cisterna magna, bilateral periventrcularnodular heterotopia, [...] EF 55%.10. H/o maternal clubfoot-s/p repair as delzlb84. H/o tobacco abuse?SIGNATURE: Marie Hassan DO PATIENT NAME: Zuleika LambATE: November 30, 2017 : 10:31 AM PAGER/CONTACT #: [phone] Normal [facility] PROGRESS HNO ID: [id number] thor: Darcie [place]) ANEUDY Landeroservice: NursingAuthor Type: Registered NurseType: Progress NotesFiled: 11/30/2017 10:13 AMNote Text:Patient remains in shower. RN and boyfriend at side. EFM on telemetryand adjusted while patient in shower. Difficult to keep baby on. Normal [facility] PROGRESS HNO ID: [id number] thor: Yolanda (Res) SnyderService: ObstetricsAuthor Type: ResidentType: Progress NotesFiled: 11/30/2017 7:35 AMNote Text:In to place FB. Pt tolerated procedure well. Continues to leak clearfluid. Pt uncomfortable with contractions.Cat I FHT, reactive with accelsToco: 2-5 minsHeather Romina, PGY-1Obstetrics and GynecologyPager [phone]/7:34 AM Normal [facility] Type and Screenon 11-30-2017 ABO group Nom (Bld) A Normal [facility] Comment on above: Performed By: #### T &S #### [place] [address] Comment See Below [facility] [place] Comment on above: Result Comment: Scre en &/or Xmatch expires in 3 days at 12 midnight. Redraw patient at that time. Performed By: #### T &S #### [place] [address] RH Type Positive Normal [facility] Comment on above: Performed By: #### T &S #### [place] [address] Progress Noteon 11-28-2017 Handicapped Teacher Authentication Interface Message Text Routine VisitSubjective: Zuleika Villalta is being seen today for her obstetrical visit. She is at 08w7mltqnivmkg. Patient reports no complaints. Movement: normal. She [...] [facility] Supervision of other high risk , antepartum 10/08/2017 PLAN OF CAREMD/OB APPOINTMENTSHow often should patient be evaluated? q 2 weeks from 32 to 36 weeks thenweekly until deliveryWork restrictions: noneFETAL EVALUATIONAntenatal surveillance: weekly BPPs starting at 32 weeks.Ultrasound: Serial growth ultrasounds every 4 weeks.DELIVERY PLANHospital: [facility] HospitalInduction at 39 weeks; CYTOTEC IOL 12-02-17 at 5 pm at [facility]. Pre-Procedure formdone (CG)GBS culture: neg 11/07/17Contraception: Considering [...] was spent counseling and coordinating care. Normal [facility] Progress Noteon 11-22-2017 Handicapped Teacher Authentication Interface Message Text FTC plan of care faxed to [facility] in event pt would arrive for urgent management. Normal [facility] Progress Noteon 11-21-2017 Handicapped Teacher Authentication Interface Message Text Routine VisitSubjective: Zuleika Villalta is being seen today for her obstetrical visit. She is at [id number]. Patient reports that she went to [facility] last night due toconcerns for labor. She [...] Serial growth ultrasounds every 4 weeks.DELIVERY PLANHospital: [facility] HospitalInduction at 39 weeks; CYTOTEC IOL 6-18-18 at 5 pm at [facility]. Pre-Procedure formdone (CG)GBS culture: neg 11/07/17Contraception: Considering [...] scheduled for IOL on12/02/17.Oksana amado MD Normal [facility] Progress Noteon 11-12-2017 Handicapped Teacher Authentication Interface Message Text Call from [facility] that pt presented there in labor. [facility] plan of care and ACOGs faxed by Toan Chen. Provided after hours MFM number provided. Normal [facility] Group B Strep Cultureon 10-16 Group B Strep Culture Group B Strep Cult ure: No Group B Streptococci isolated. Source: VAG Collected: 11/07/17 09:00 Site: Vaginal/Rectal Received : 11/07/17 22:01Group B Strep Culture FINAL 11/10/17 08:34 No Group B Streptococci isolated. Normal [facility] Comment on above: Performed By: #### G [facility] ####[address] [phone] Progress Noteon 11-07-2017 Handicapped Teacher Authentication Interface Message Text Routine VisitSubjective: Zuleika Villalta is being seen today for her obstetrical visit. She is at 76z4msoguwwenc. Patient reports occasional nausea. No emesis. She [...] Serial growth ultrasounds every 4 weeks.DELIVERY PLANHospital: [facility] HospitalInduction at 39 weeksGBS culture: collected and [...] OB visit and BPP.Oksana Amado MD Normal [facility] Progress Noteon 10-24-2017 Handicapped Teacher Authentication Interface Message Text Routine VisitSubjective: Zuleika [...] Serial growth ultrasounds every 4 weeks.DELIVERY PLANHospital: [facility] HospitalInduction at 39 weeksGBS culture:Contraception: Considering LARC [...] and coordinating care.Marco Antonio Antonio DO Normal [facility] Progress Noteon 10-15-2017 Handicapped Teacher Authentication Interface Message Text Ped selection made. Updated prenatals Normal [facility] Progress Noteon 10-08-2017 Handicapped Teacher Authentication Interface Message Text Thank you for [...] size. There was a patent foramen ovale, bcjefrdvz-pu-qnar shunt.Tricuspid valve:Normal tricuspid valve. There was normal [...] fetuses and in fetuses with CHD and lvcqmqtrshqeo68u48, the ratio being below 0.3 )Impression and recommendations.1) Abnormal 3-vessel view, ascending aorta was moderately dilated. 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 thymic thoracic ratio (TT-ratio)=0.1 ( TT-ratio 0.44 in normal fetuses and in fetuses with CHD and bzwacmqipkiil47q59, the ratio being below 0.3 )5) Normal [...] 60 minutes spent on the encounter. Normal [facility] Handicapped Teacher Authentication Interface Message Text Initial VisitSubjective: Zuleika [...] Serial growth ultrasounds every 4 weeks.DELIVERY PLANHospital: [facility] HospitalInduction at 39 weeksGBS culture:Contraception:TDAP recommended Constipation [...] weeks for OB visit and BPP in [place].Oksana Amado MD Normal [facility] Cytogenomic Microarray Nivia sis of Bloodon 09-10-2017 Cytogenomic Microarray Analysis of Blood SEE BELOW Normal [facility] Comment on above: Result Comment: SPEC IMEN: BLOODCLINICAL INFORMATION: Learning disability[F81.9]TEST: CYTOGENOMIC MICROARRAY ANALYSISRESULT SUMMARY:Normal femaleNOMENCLATURE:arr(1-22,X)y3YMPZEXHUTCGRUJ & COMMENTS:The cytogenomics microarray analysis indicated no [...] whole genome microarray analysis was performed the FDA-clearedProVision Communications(RWriteReader ApS platform, which contains approximately 2.7million markers, including 1,953,246 unique non-polymorphic copy numberprobes and 743,304 single nucleotide polymorphism (SNP) probes. Thegenome-wide functional resolution of this assay is approximately 25 kbfor deletions and 50 kb for duplications. This microarray andassociated software (Chromosome Analysis Suite Dx) were manufactured byAffymetrix and used by the Cytogenetics and Molecular DiagnosticsLaboratories of [facility] for the purpose ofidentifying DNA copy [...] further information regarding intendeduse and limitations, see [email or web address].Note: The Cytogenetics Laboratory has this patient's blood [...] for additional testing. 09/19/2017 BIGG GARCIA, PH.D., [facility], [facility] 09/19/2017 Performed By: #### M [facility] ####[facility] [place], [place] [phone] MRI (SINGLE)on 018 MRI (SINGLE) MRI (SINGLE)CL [...] Dr. AJ CAMILO at 09/10/2017 10:21 Normal [facility] Progress Noteon 09-10-2017 Handicapped Teacher Authentication Interface Message Text The total patient time of the visit was 15 minutes, of which greater than 50% of the time was spent counseling and coordinating care. Normal [facility] Auto Diffon 09-03-2017 Basophils Auto #/vol (Bld) 0.1 E3/mcL Normal 0.0-0.2 [facility] Comment on above: Order Comment: Order Added by Discern Expert. Performed By: #### 2 [id number] ####KADEN [address] [place] [address] Basophils/100 WBC Auto (Bld) 0.5 % Normal 0.0-2.0 [facility] Comment on above: Order Comment: Order Added by Discern Expert. Performed By: #### 2 [id number] ####KADEN [address] [place] [address] Eos Absolute 0.0 E3/mcL Normal 0.0-0.7 [facility] Comment on above: Order Comment: Order Added by Discern Expert. Performed By: #### 2 [id number] ####KADEN [address] [place] [address] Eosinophils/100 leukocytes 0.4 % Normal 0.0-11.0 [facility] Comment on above: Order Comment: Order Added by Discern Expert. Performed By: #### 2 758875 ####KADEN [address] [place] [address] Lymphocytes 1.3 E3/mcL Normal 1.2-3.4 [facility] Comment on above: Order Comment: Order Added by Discern Expert. Performed By: #### 2 581389 ####KADEN [address] [place] [address] Lymphocytes/100 leukocytes 13.1 % Low 20.0-55.0 [facility] Comment on above: Order Comment: Order Added by Discern Expert. Performed By: #### 2 494777 ####KADEN [address] [place] [address] Fountain Absolute 0.4 E3/mcL Normal 0.0-0.7 [facility] Comment on above: Order Comment: Order Added by Discern Expert. Performed By: #### 2 238152 ####KADEN [address] [place] [address] Monocytes/100 leukocytes 4.3 % Normal 0.0-10.0 [facility] Comment on above: Order Comment: Order Added by Discern Expert. Performed By: #### 2 361105 ####KADEN [address] [place] [address] Neutro Absolute 8.4 E3/mcL High 1.4-6.5 [facility] Comment on above: Order Comment: Order Added by Discern Expert. Performed By: #### 2 046899 ####KADEN [address] [place] [address] Neutro Auto 81.7 % High 37.0-75.0 [facility] Comment on above: Order Comment: Order Added by Discern Expert. Performed By: #### 2 202738 ####KADEN [address] [place] [address] CBC w/ Auto Diffon 8 Erythrocyte distribution width Auto Ratio (RBC) 13.1 % Normal 11.5-14.5 [facility] Comment on above: Performed By: #### 2 877503 ####KADEN [address] [place] [id number] Erythrocytes (RBC) 3.90 E6/mcL Normal 3.90-5.40 [facility] Comment on above: Performed By: #### 2 018140 ####KADEN [address] [place] [id number] Hematocrit (HCT) 34.7 % Low 36.0-48.0 [facility] Comment on above: Performed By: #### 2 505645 ####KADEN [address] [place] [id number] Hemoglobin mass conc (Bld) 11.8 g/dL Low 12.0-16.0 [facility] Comment on above: Performed By: #### 2 789334 ####KADEN [address] [place] [id number] MCH 30.3 pg Normal 27.0-31.0 [facility] Comment on above: Performed By: #### 2 147888 ####KADEN [address] [place] [id number] MCHC mass conc (RBC) 34.2 g/dL Normal 33.0-37.0 [facility] Comment on above: Performed By: #### 2 615707 ####KADEN [address] [place] [id number] MCV 88.8 fL Normal 78.0-100.0 [facility] Comment on above: Performed By: #### 2 898678 ####KADEN [address] [place] [id number] Platelet mean volume (PMV) 7.3 fL Low 7.4-11.0 [facility] Comment on above: Performed By: #### 2 531622 ####KADEN [address] [place] [address] Platelets 218 E3/mcL Normal 130-400 [facility] Comment on above: Performed By: #### 2 923253 ####KADEN [address] [place] [address] WBC (Leukocytes) 10.2 E3/mcL Normal 3.6-11.0 [facility] Comment on above: Performed By: #### 2 116305 ####KADEN [address] [place] [address] Gest Scr Glu 1 Hron 09-04-19 18 Glucose mass conc 113 mg/dL Normal 70-140 [facility] Comment on above: Performed By: #### 2 904552 ####KADEN [address] [place] [address] FISH Probeon 08-13-2017 Protein mass conc SEE BELOW Normal [facility] Comment on above: Result Comment: SPEC IMEN: BLOOD - [id number] INFORMATION:TEST: FISH Analysis of the DiGeorge/VCFS Region [...] Metaphase images: 2The Vysis LSI DARREN Spectrum [place] Probe contains the DARREN gene (3'non-coding region of TUPLE1, D93K971, and G13X9923. The Vysis LSI ARSAspectrum Green Probe includes [...] performance characteristics determinedby the Cytogenetics Laboratory of [facility]. It hasnot been cleared or approved [...] J Med Barbara 66:250-256,1995. BIGG GARCIA, PH.D., [facility], [facility] 08/16/2017 Performed By: #### F MARIA ####[address] [phone] Progress Noteon 08-13-2017 Handicapped Teacher Authentication Interface Message Text Met with patient [...] share information with FTC team, OB and mitochondrial disorders counselor signed. Pt plans to deliver in [place] with [facility]. Currently with Dr. Shekhar Dyson.Wood Carving Lathe Operator is undecided. [facility] and discussed importance [...] was spent counseling and coordinating care. Normal [facility] Handicapped Teacher Authentication Interface Message Text Thank you for [...] size. There was a patent foramen ovale, wswyxjbss-me-kwtx shunt.Tricuspid valve:Normal tricuspid valve. There was normal [...] 60 minutes spent on the encounter. Normal [facility] Progress Noteon 07-18-2017 Handicapped Teacher Authentication Interface Message Text [facility] MATERNAL- MEDICINE CONSULTReferring/Requestin g Provider: VINI FranklinCP: [...] no palpitations. She usually doesnot see a director foundation, but did have a recent echo due [...] Stroke Maternal Grandmother Heart Disease Maternal Grandmother [place] Clotting Disorder Maternal Grandfather Miscarriages / Stillbirths [...] child 07/18/2017 Consider evaluation with social service liaison to assess for any needs duringpregnancy or after. Will have genetic consult with [facility] evaluation. cardiac anomaly complicating , antepartum 07/18/2017 Dilated aortic root seen on ultrasound along with large umbilical cordvarix, dolichocephaly DW Dr. Zazueta, verbal order to refer to [facility] Will be scheduled with pediatric cardiology. Also, patient and family members have a history of learning disabilities,including an individual learning plan in school. She will talk to her familymembers and bring as much information as is available for her genetics consult.She has transportation to [place] and is [facility]The total patient time of the visit was 30 minutes, of which was greater than50% of the time was spent counseling and coordinating care. Normal [facility] IGP W/hpv Rfx 464222ue 05-07 Diagnosis: See Ref Lab Report Normal [facility] Comment on above: Order Comment: Thin Prep. Performed By: #### 2 [id number] ####KADEN [address] [place] [address] C Urineon 05-03-2017 C Urine Final Report: Normal skin alonso isolated Normal [facility] Comment on above: Performed By: #### 2 136744 ####KADEN [address] [place] [address] RPRon 05-03-2017 RPR Ql Non-Reactive Normal Non-Reacti ve [facility] Comment on above: Performed By: #### 2 804842 ####KADEN [address] [place] [address] Hep Bs Agon 05-02-2017 BSA (Body Surface Area) Negative Normal Negative [facility] Comment on above: Result Comment: Perf ormed At: CB [facility] [address] [place], [place] [id number] Vincent PhD Ph:[phone] Performed By: #### 2 888866 ####KADEN [address] [place] [address] ABO/Rh Echoon 05-01-2017 ABO/Rh E Interp... Positive Normal [facility] Comment on above: Performed By: #### 2 897433 ####KADEN [address] [place] [address] Antibody Screen Cap...on Screen Interp... Negative Normal [facility] Comment on above: Performed By: #### 2 494691 ####KADEN [address] [place] [address] Auto Diffon 05-01-2017 Basophils Auto #/vol (Bld) 0.0 E3/mcL Normal 0.0-0.2 [facility] Comment on above: Order Comment: Order Added by Discern Expert. Performed By: #### 2 919388 ####KADEN Urinalysis Manual [address] [place] [address] Basophils/100 WBC Auto (Bld) 0.4 % Normal 0.0-2.0 [facility] Comment on above: Order Comment: Order Added by Discern Expert. Performed By: #### 2 256247 ####KADEN Urinalysis Manual [address] [place] [address] Eos Absolute 0.1 E3/mcL Normal 0.0-0.7 [facility] Comment on above: Order Comment: Order Added by Anamaria Expert. Performed By: #### 2 588524 ####KADEN Urinalysis Manual [address] [place] [address] Eosinophils/100 leukocytes 0.7 % Normal 0.0-11.0 [facility] Comment on above: Order Comment: Order Added by Anamaria Expert. Performed By: #### 2 406459 ####KADEN Urinalysis Manual [address] [place] [address] Lymphocytes 1.8 E3/mcL Normal 1.2-3.4 [facility] Comment on above: Order Comment: Order Added by Anamaria Expert. Performed By: #### 2 967301 ####KADEN Urinalysis Manual [address] [place] [address] Lymphocytes/100 leukocytes 17.1 % Low 20.0-55.0 [facility] Comment on above: Order Comment: Order Added by Anamaria Expert. Performed By: #### 2 241026 ####KADEN Urinalysis Manual [address] [place] [address] Fountain Absolute 0.5 E3/mcL Normal 0.0-0.7 [facility] Comment on above: Order Comment: Order Added by Discern Expert. Performed By: #### 2 931472 ####KADEN Urinalysis Manual [address] [place] [address] Monocytes/100 leukocytes 5.0 % Normal 0.0-10.0 [facility] Comment on above: Order Comment: Order Added by Discern Expert. Performed By: #### 2 993001 ####KADEN Urinalysis Manual [address] [place] [address] Neutro Absolute 8.0 E3/mcL High 1.4-6.5 [facility] Comment on above: Order Comment: Order Added by Discern Expert. Performed By: #### 2 [id number] ####KADEN Urinalysis Manual [address] [place] [address] Neutro Auto 76.8 % High 37.0-75.0 [facility] Comment on above: Order Comment: Order Added by Discern Expert. Performed By: #### 2 [id number] ####KADEN Urinalysis Manual Jlsxsvlzwg[address] [place] [address] CBC w/ Auto Diffon 7 Erythrocyte distribution width Auto Ratio (RBC) 15.2 % High 11.5-14.5 [facility] Comment on above: Performed By: #### 2 408046 ####KADEN Urinalysis Manual Fwbgxqgviv2957[address] [place] [address] Erythrocytes (RBC) 4.90 E6/mcL Normal 3.90-5.40 [facility] Comment on above: Performed By: #### 2 908240 ####KADEN Urinalysis Manual Yyrqmppxar1672[address] [place] [address] Hematocrit (HCT) 41.1 % Normal 36.0-48.0 [facility] Comment on above: Performed By: #### 2 689873 ####KADEN Urinalysis Manual Gjiyddgccx913[address] [place] [address] Hemoglobin mass conc (Bld) 13.5 g/dL Normal 12.0-16.0 [facility] Comment on above: Performed By: #### 2 272744 ####KADEN Urinalysis Manual Unrfgacxyh3908[address] [place] [address] MCH 27.5 pg Normal 27.0-31.0 [facility] Comment on above: Performed By: #### 2 652217 ####KADEN Urinalysis Manual Hczaxganwz[address] [place], [place] [id number] MCHC mass conc (RBC) 32.8 g/dL Low 33.0-37.0 [facility] Comment on above: Performed By: #### 2 503285 ####KADEN Urinalysis Manual Kbouykuuek0[address] [place] [address] MCV 83.9 fL Normal 78.0-100.0 [facility] Comment on above: Performed By: #### 2 689545 ####KADEN Urinalysis Manual Igcnrqshdk1682[address] [place] [address] Platelet mean volume (PMV) 8.0 fL Normal 7.4-11.0 [facility] Comment on above: Performed By: #### 2 742110 ####KADEN Urinalysis Manual Sgtzxtbvxu660[address] [place] [address] Platelets 246 E3/mcL Normal 130-400 [facility] Comment on above: Performed By: #### 2 646165 ####KADEN Urinalysis Manual Uokyvcuhxu2158[address] [place] [address] WBC (Leukocytes) 10.4 E3/mcL Normal 3.6-11.0 [facility] Comment on above: Performed By: #### 2 851134 ####KADEN Urinalysis Manual Sxxwtwxfxd53[address] [place] [address] Chlamydia GC by PCRon 2016 Chlamydia by PCR. Not Detected Normal Not Detected [facility] Comment on above: Result Comment: Xper t CT/NG Assay performance has not been evaluated in patients less than 14 years of age. Performed By: #### 2 937331 ####KADEN JflOuvo1702 [place] [id number] Gonorrhoeae by PCR Not Detected Normal Not Detected [facility] Comment on above: Result Comment: Xper t CT/NG Assay performance has not been evaluated in patients less than 14 years of age. Performed By: #### 2 167225 ####KADEN UwzHsjc0117 [place] [id number] HIV-1/2 Ag/Abon 05-01-2017 HIV-1/2 Ag/Ab Non-Reactive Normal Non-Reacti ve [facility] Comment on above: Performed By: #### 2 848821 ####[place] [address] Rubella IgG Lvlon 05-01-2017 Rubella IgG Lvl 50.8 (POS) Normal [facility] Comment on above: Result Comment: <10I U/ml NON REACTIVE: NOT AYHMPV52-35 IU/ml RUBELLA SPECIFIC AB PRESENT, EVALUATEFURTHER TO DETERMINE IMMUNE STATUS >15 IU/ml REACTIVE, IMMUNE Performed By: #### 2 091079 ####KADEN BfaHwwb6250 [place] [address] Auto Diffon 04-22-2017 Basophils Auto #/vol (Bld) 0.1 E3/mcL Normal 0.0-0.2 [facility] Comment on above: Order Comment: Order Added by Discern Expert. Performed By: #### 2 738128 ####KADEN Urinalysis Manual Wdakjwuqsf053[address] [place] [address] Basophils/100 WBC Auto (Bld) 0.6 % Normal 0.0-2.0 [facility] Comment on above: Order Comment: Order Added by Discern Expert. Performed By: #### 2 918440 ####[place] [address] Eos Absolute 0.0 E3/mcL Normal 0.0-0.7 [facility] Comment on above: Order Comment: Order Added by Discern Expert. Performed By: #### 2 302444 ####KADEN Urinalysis Manual Nggqptfzus[address] [place] [address] Eosinophils/100 leukocytes 0.2 % Normal 0.0-11.0 [facility] Comment on above: Order Comment: Order Added by Discern Expert. Performed By: #### 2 969868 ####KADEN Urinalysis Manual Ixyqriixvz6638[address] [place] [address] Lymphocytes 1.5 E3/mcL Normal 1.2-3.4 [facility] Comment on above: Order Comment: Order Added by Discern Expert. Performed By: #### 2 410920 ####KADEN Urinalysis Manual Tswezzy[address] [place] [address] Lymphocytes/100 leukocytes 10.8 % Low 20.0-55.0 [facility] Comment on above: Order Comment: Order Added by Discern Expert. Performed By: #### 2 309450 ####KADEN Urinalysis Manual Unedtxobyx688[address] [place] [address] Fountain Absolute 0.6 E3/mcL Normal 0.0-0.7 [facility] Comment on above: Order Comment: Order Added by Discern Expert. Performed By: #### 2 423541 ####KADEN Urinalysis Manual Rznirqgvho764[address] [place] [address] Monocytes/100 leukocytes 4.4 % Normal 0.0-10.0 [facility] Comment on above: Order Comment: Order Added by Discern Expert. Performed By: #### 2 815204 ####KADEN Urinalysis Manual Wjpqvlhgub6314[address] [place] [address] Neutro Absolute 11.3 E3/mcL High 1.4-6.5 [facility] Comment on above: Order Comment: Order Added by Discern Expert. Performed By: #### 2 056513 ####KADEN Urinalysis Manual Iagqrcyvqv54[address] [place] [address] Neutro Auto 84.0 % High 37.0-75.0 [facility] Comment on above: Order Comment: Order Added by Discern Expert. Performed By: #### 2 401539 ####KADEN Urinalysis Manual Osaawmjyfi8986[address] [place] [address] BMPon 04-22-2017 BUN/Creatinine Ratio Unable to calc Normal 5.4-30.0 [facility] Comment on above: Performed By: #### 2 319874 ####KADEN Urinalysis Manual Hdepfqhiby7844[address] [place] [address] Creatinine mg/dL Low 0.6-1.3 [facility] Comment on above: Performed By: #### 2 488759 ####KADEN Urinalysis Manual Sryrhaiyxg5836[address] [place] [address] Urea nitrogen 7 mg/dL Normal 7-18 [facility] Comment on above: Performed By: #### 2 744354 ####KADEN Urinalysis Manual Uvqemdnfqq6182 [place] [address] Calcium 9.6 mg/dL Normal 8.4-10.2 [facility] Comment on above: Performed By: #### 2 710344 ####KADEN Urinalysis Manual Crgiqmggbp7646 [place] [address] Chloride 103 mmol/L Normal 98-107 [facility] Comment on above: Performed By: #### 2 222551 ####KADEN Urinalysis Manual Eqpecbtujv5630 [place] [address] CO2 21.7 mmol/L Low 24.0-30.0 [facility] Comment on above: Performed By: #### 2 302992 ####KADEN Urinalysis Manual Gpuwqwfosq6925[address] [place] [address] Glucose mass conc 89 mg/dL Normal 70-99 [facility] Comment on above: Performed By: #### 2 835981 ####KADEN Urinalysis Manual Nhlebjueid2224[address] [place] [address] Potassium molar conc 3.6 mmol/L Normal 3.5-5.1 [facility] Comment on above: Performed By: #### 2 534516 ####KADEN Urinalysis Manual Jvtmmomxhh331[address] [place] [address] Sodium 136 mmol/L Normal 136-145 [facility] Comment on above: Performed By: #### 2 576857 ####KADEN Urinalysis Manual Iyzizthiry4660[address] [place] [address] CBC w/ Auto Diffon 7 Erythrocyte distribution width Auto Ratio (RBC) 14.8 % High 11.5-14.5 [facility] Comment on above: Performed By: #### 2 800802 ####KADEN Urinalysis Manual Ohzvastodb0488[address] [place] [address] Erythrocytes (RBC) 4.96 E6/mcL Normal 3.90-5.40 [facility] Comment on above: Performed By: #### 2 977028 ####KADEN Urinalysis Manual Qoonmkhghi0849[address] [place] [address] Hematocrit (HCT) 40.9 % Normal 36.0-48.0 [facility] Comment on above: Performed By: #### 2 279861 ####KADEN Urinalysis Manual Upyqekeqaa4895[address] [place] [address] Hemoglobin mass conc (Bld) 13.5 g/dL Normal 12.0-16.0 [facility] Comment on above: Performed By: #### 2 774297 ####KADEN Urinalysis Manual Krntflzmsu5996[address] [place] [address] MCH 27.2 pg Normal 27.0-31.0 [facility] Comment on above: Performed By: #### 2 969388 ####KADEN Urinalysis Manual Uzijwwhqtt2513[address] [place] [address] MCHC mass conc (RBC) 33.0 g/dL Normal 33.0-37.0 [facility] Comment on above: Performed By: #### 2 406144 ####KADEN Urinalysis Manual Qbecdsshwt8535[address] [place] [address] MCV 82.4 fL Normal 78.0-100.0 [facility] Comment on above: Performed By: #### 2 025491 ####KADEN Urinalysis Manual Mstdxtccxk827[address] [place] [address] Platelet mean volume (PMV) 8.0 fL Normal 7.4-11.0 [facility] Comment on above: Performed By: #### 2 256770 ####KADEN Urinalysis Manual Zxqunlopcw652[address] [place] [address] Platelets 237 E3/mcL Normal 130-400 [facility] Comment on above: Performed By: #### 2 314915 ####KADEN Urinalysis Manual Rxrhdfweze188920 [place] [address] WBC (Leukocytes) 13.5 E3/mcL High 3.6-11.0 [facility] Comment on above: Performed By: #### 2 051132 ####KADEN Urinalysis Manual Zqectudjvr5043[address] [place] [address] UA Completeon 04-22-2017 UA Blood Negative Normal Negative [facility] Comment on above: Performed By: #### 2 141862 ####KADEN Urinalysis Manual Zwawbhpzln5599 [place] [address] UA Ascorbic Acid 40 mg/dL High <=19 [facility] Comment on above: Performed By: #### 2 234208 ####KADEN Urinalysis Manual [address]jal[address]ay[address] [place] [address] UA Bacteria 3+ /HPF Abnormal None [facility] Comment on above: Performed By: #### 2 598570 ####KADEN Urinalysis Manual Ncmtyrxpdn8588[address] [place] [address] UA Clarity SltCloudy Abnormal Clear [facility] Comment on above: Performed By: #### 2 148217 ####KADEN Urinalysis Manual Aaxjkvkkfv[address] [place] [address] UA Leuk Est Negative Normal Negative [facility] Comment on above: Performed By: #### 2 201538 ####KADEN Urinalysis Manual Eddjfevksv5039[address] [place] [address] UA Mucous Few Abnormal Trace [facility] Comment on above: Performed By: #### 2 064156 ####KADEN Urinalysis Manual Yionrmcrck469[address] [place] [address] UA Nitrite Negative Normal Negative [facility] Comment on above: Performed By: #### 2 402115 ####KADEN Urinalysis Manual Ghofhnoyhe9966[address] [place] [address] UA pH 8.0 Normal 4.6-8.0 [facility] Comment on above: Performed By: #### 2 395594 ####KADEN Urinalysis Manual Jwjbktnzpv2883[address] [place] [address] UA Protein Negative Normal Negative [facility] Comment on above: Performed By: #### 2 717860 ####KADEN Urinalysis Manual Pckfufhqas0040[address] [place] [address] UA Spec Grav 1.012 Normal 1.003-1.03 0 [facility] Comment on above: Performed By: #### 2 837094 ####KADEN Urinalysis Manual Qvigobrwad1302[address] [place] [address] UA Squam Epithelial 0-5 Normal 0-5 [facility] Comment on above: Performed By: #### 2 187267 ####KADEN Urinalysis Manual Vtmqsxqqar5727 [place] [address] UA Urobilinogen Negative Normal [facility] Comment on above: Performed By: #### 2 963011 ####KADEN Urinalysis Manual Iimyteuifi0801 [place] [address] UA WBC 0-5 Normal 0-5 [facility] Comment on above: Performed By: #### 2 172354 ####KADEN Urinalysis Manual Vbfamympte6027 [place] [address] Urine, color Yellow Normal Yellow [facility] Comment on above: Performed By: #### 2 288514 ####KADEN Urinalysis Manual Yzjqnzsjdd[address] [place] [address] Urine, glucose Negative Normal Negative [facility] Comment on above: Performed By: #### 2 409254 ####KADEN Urinalysis Manual Yzouaatjmo6766[address] [place] [address] Urine, ketones presence 1+ Abnormal Negative [facility] Comment on above: Performed By: #### 2 911298 ####KADEN Urinalysis Manual Udlowsnjeo[address] [place] [address] Urine, urobilinogen Negative Normal Negative [facility] Comment on above: Performed By: #### 2 183639 ####KADEN Urinalysis Manual Afhgzprroa3681 [place] [address] eGFRon 04-22-2017 eGFR AA >60 Normal [facility] Comment on above: Order Comment: Order added by Discern Expert. Performed By: #### 2 998555 ####KADEN Urinalysis Manual Amziaykgpy2370 [place] [address] eGFR (non-black) mL/min/{1.73_m2} Normal [facility] Comment on above: Order Comment: Order added by Discern Expert. Performed By: #### 2 427218 ####KADEN Urinalysis Manual Ixpuxjansk1496 [place] [address] C Urineon 04-20-2017 C Urine Final Report: Normal skin alonso isolated Normal [facility] Comment on above: Performed By: #### 2 362361 ####KADEN Urinalysis Manual Ktmluhqzcl2231 [place] [address] BMPon 04-18-2017 BUN/Creatinine Ratio 15.0 ratio Normal 5.4-30.0 [facility] Comment on above: Performed By: #### 2 448761 ####KADENMorelia BairdKhtObfb4597 [place] [address] Creatinine 0.6 mg/dL Normal 0.6-1.3 [facility] Comment on above: Performed By: #### 2 179526 ####KADEN BairdKdsCcsa9869 [place] [address] Urea nitrogen 9 mg/dL Normal 7-18 [facility] Comment on above: Performed By: #### 2 019102 ####KADEN BairdEniKmxm8410 [place] [address] Calcium 9.6 mg/dL Normal 8.4-10.2 [facility] Comment on above: Performed By: #### 2 703897 ####KADEN BairdYljKcya7561 [place] [address] Chloride 102 mmol/L Normal 98-107 [facility] Comment on above: Performed By: #### 2 448514 ####KADENMorelia BairdHomNdhb1483 [place] [address] CO2 23.3 mmol/L Low 24.0-30.0 [facility] Comment on above: Performed By: #### 2 848913 ####KADEN BairdSwfTtvy4851 [place] [address] Glucose mass conc 93 mg/dL Normal 70-99 [facility] Comment on above: Performed By: #### 2 745847 ####KADENMorelia BairdAgqWzwy7435 [place] [address] Potassium molar conc 3.5 mmol/L Normal 3.5-5.1 [facility] Comment on above: Performed By: #### 2 510600 ####KADEN BairdUyqTpsc8249 [place] [address] Sodium 136 mmol/L Normal 136-145 [facility] Comment on above: Performed By: #### 2 074067 ####KADEN RqrVuoy5111 [place] [address] UA Completeon 04-18-2017 UA Blood Negative Normal Negative [facility] Comment on above: Performed By: #### 2 647943 ####KADEN Urinalysis Manual Bphtqqnpdn47[address] [place] [address] UA Amorph Chastity 2+ /HPF Abnormal None [facility] Comment on above: Performed By: #### 2 740765 ####KADEN Urinalysis Manual Ygimsqjcqg1937[address] [place] [address] UA Ascorbic Acid 40 mg/dL High <=19 [facility] Comment on above: Performed By: #### 2 325298 ####KADEN Urinalysis Manual Yrdwvkmtwr9[address] [place] [address] UA Clarity Cloudy Abnormal Clear [facility] Comment on above: Performed By: #### 2 579740 ####KADEN Urinalysis Manual Bergbxipau0124[address] [place] [address] UA Leuk Est Negative Normal Negative [facility] Comment on above: Performed By: #### 2 193890 ####KADEN Urinalysis Manual Yvoqgcjvzr75[address] [place] [address] UA Mucous Trace Abnormal Trace [facility] Comment on above: Performed By: #### 2 605368 ####KADEN Urinalysis Manual Mtucafdcvo2887[address] [place] [address] UA Nitrite Negative Normal Negative [facility] Comment on above: Performed By: #### 2 882860 ####KADEN Urinalysis Manual Isxnghsvtv5010[address] [place] [address] UA pH 7.0 Normal 4.6-8.0 [facility] Comment on above: Performed By: #### 2 576621 ####KADEN Urinalysis Manual Wgodhjwowk23[address] [place] [address] UA Protein Negative Normal Negative [facility] Comment on above: Performed By: #### 2 468028 ####KADEN Urinalysis Manual Skeravltdr6618[address] [place] [address] UA Spec Grav 1.018 Normal 1.003-1.03 0 [facility] Comment on above: Performed By: #### 2 070444 ####KADEN Urinalysis Manual Zdencemihp2875 [place] [address] UA Squam Epithelial 0-5 Normal 0-5 [facility] Comment on above: Performed By: #### 2 001285 ####KADEN Urinalysis Manual Hquyzucebq7011 [place] [address] UA Urobilinogen Negative Normal [facility] Comment on above: Performed By: #### 2 501530 ####KADEN Urinalysis Manual Tasjmbhjop6[address] [place] [address] Urine, color Yellow Normal Yellow [facility] Comment on above: Performed By: #### 2 090464 ####KADEN Urinalysis Manual Xpuxumunqg480[address] [place] [address] Urine, glucose Negative Normal Negative [facility] Comment on above: Performed By: #### 2 920296 ####KADEN Urinalysis Manual Junsuuokop8638[address] [place] [address] Urine, ketones presence 2+ Abnormal Negative [facility] Comment on above: Performed By: #### 2 461419 ####KADEN Urinalysis Manual Mixzermvvs8006[address] [place] [address] Urine, urobilinogen Negative Normal Negative [facility] Comment on above: Performed By: #### 2 522421 ####KADEN Urinalysis Manual Bmntncijub[address] [place] [address] eGFRon 04-18-2017 eGFR (non-black) mL/min/{1.73_m2} Normal [facility] Comment on above: Order Comment: Order added by Discern Expert. Performed By: #### 1 [id number] ####KADEN MlfMoet2384 [place] [address] eGFR AA >60 Normal [facility] Comment on above: Order Comment: Order added by Discern Expert. Performed By: #### 1 [id number] ####KADEN GotFwko5451 [place] [address] Auto Diffon 04-11-2017 Basophils Auto #/vol (Bld) 0.1 E3/mcL Normal 0.0-0.2 [facility] Comment on above: Order Comment: Order Added by Discern Expert. Performed By: #### 2 625079 ####KADEN UbuOxdd2432 [place] [address] Basophils/100 WBC Auto (Bld) 0.7 % Normal 0.0-2.0 [facility] Comment on above: Order Comment: Order Added by Discern Expert. Performed By: #### 2 512941 ####KADEN AuiZoex3361 [place] [address] Eos Absolute 0.0 E3/mcL Normal 0.0-0.7 [facility] Comment on above: Order Comment: Order Added by Discern Expert. Performed By: #### 2 559899 ####KADEN DccIkpn4579 [place] [address] Eosinophils/100 leukocytes 0.1 % Normal 0.0-11.0 [facility] Comment on above: Order Comment: Order Added by Discern Expert. Performed By: #### 2 722766 ####KADEN JywMldf3546 [place] [address] Lymphocytes 1.5 E3/mcL Normal 1.2-3.4 [facility] Comment on above: Order Comment: Order Added by Discern Expert. Performed By: #### 2 220067 ####KADEN HbdRtnl7645 [place] [address] Lymphocytes/100 leukocytes 17.2 % Low 20.0-55.0 [facility] Comment on above: Order Comment: Order Added by Discern Expert. Performed By: #### 2 073466 ####KADEN AoyQhqo9230 [place] [address] Fountain Absolute 0.6 E3/mcL Normal 0.0-0.7 [facility] Comment on above: Order Comment: Order Added by Discern Expert. Performed By: #### 2 423514 ####KADEN PszPevc1769 [place] [address] Monocytes/100 leukocytes 6.6 % Normal 0.0-10.0 [facility] Comment on above: Order Comment: Order Added by Discern Expert. Performed By: #### 2 138055 ####KADEN JztDzoe9054 [place] [address] Neutro Absolute 6.7 E3/mcL High 1.4-6.5 [facility] Comment on above: Order Comment: Order Added by Discern Expert. Performed By: #### 2 502647 ####KADEN Luceroo1025 [place] [address] Neutro Auto 75.4 % High 37.0-75.0 [facility] Comment on above: Order Comment: Order Added by Discern Expert. Performed By: #### 2 385638 ####KADEN Luceroo1025 [place] [address] BMPon 04-11-2017 BUN/Creatinine Ratio 12.9 ratio Normal 5.4-30.0 [facility] Comment on above: Performed By: #### 2 069860 ####KADEN Bai1025 [place] [address] Creatinine 0.7 mg/dL Normal 0.6-1.3 [facility] Comment on above: Performed By: #### 2 967206 ####KADEN IacTjcq9687 [place] [address] Urea nitrogen 9 mg/dL Normal 7-18 [facility] Comment on above: Performed By: #### 2 076741 ####KADEN aBi1025 [place] [address] Calcium 9.5 mg/dL Normal 8.4-10.2 [facility] Comment on above: Performed By: #### 2 395929 ####KADEN BairdHdbAaos2633 [place] [address] Chloride 105 mmol/L Normal 98-107 [facility] Comment on above: Performed By: #### 2 703640 ####KADEN BairdZxhGgpr6330 [place] [address] CO2 22.5 mmol/L Low 24.0-30.0 [facility] Comment on above: Performed By: #### 2 524550 ####KADEN BairdEsfPujt5045 [place] [address] Glucose mass conc 92 mg/dL Normal 70-99 [facility] Comment on above: Performed By: #### 2 597036 ####KADEN HvvJday9799 [place] [address] Potassium molar conc 3.6 mmol/L Normal 3.5-5.1 [facility] Comment on above: Performed By: #### 2 101359 ####KADEN NvvDwbv9695 [place] [address] Sodium 137 mmol/L Normal 136-145 [facility] Comment on above: Performed By: #### 2 803072 ####KADEN EvfPgzf5069 [place] [address] BhCG Quanton 04-11-2017 Beta hCG Qnt 8564.0 mIU/m Normal [facility] Comment on above: Result Comment: FEMA LE (NON-) & MALE <3 BORDERLINE 3 - 5 SUGGEST REPEAT TESTING FEMALE () 1 D - 1 WK 5 - 50 1 - 2 WK 50 - 500 2 - 3 WK 100 - 5000 3 - 4 WK 500 - 95344 4 - 5 WK 1000 - 42892 5 - 6 WK [address]887 - 969619 6 - 8 W[place] [address] - 383883 2 - 3 [place] [address] - 449666 Performed By: #### 2 523068 ####KADEN JtaOdzl9946 [place] [address] CBC w/ Auto Diffon 7 Erythrocyte distribution width Auto Ratio (RBC) 13.9 % Normal 11.5-14.5 [facility] Comment on above: Performed By: #### 2 474386 ####KADEN QgkKzym3376 [place] [address] Erythrocytes (RBC) 4.63 E6/mcL Normal 3.90-5.40 [facility] Comment on above: Performed By: #### 2 228857 ####KADENMorelia LuceroKaeApku2138 [place] [address] Hematocrit (HCT) 38.2 % Normal 36.0-48.0 [facility] Comment on above: Performed By: #### 2 009419 ####KADENMorelia LuceroXtdXici8912 [place] [address] Hemoglobin mass conc (Bld) 12.6 g/dL Normal 12.0-16.0 [facility] Comment on above: Performed By: #### 2 890184 ####KADENMorelia LuceroXakZpyx7700 [place] [address] MCH 27.2 pg Normal 27.0-31.0 [facility] Comment on above: Performed By: #### 2 481228 ####KADEN BairdYbiXmkt6859 [place] [address] MCHC mass conc (RBC) 33.0 g/dL Normal 33.0-37.0 [facility] Comment on above: Performed By: #### 2 162358 ####KADEN BairdYbkNgqp9037 [place] [address] MCV 82.6 fL Normal 78.0-100.0 [facility] Comment on above: Performed By: #### 2 371841 ####KADEN BairdXwjLunc7281 [place] [address] Platelet mean volume (PMV) 8.0 fL Normal 7.4-11.0 [facility] Comment on above: Performed By: #### 2 105035 ####KADEN BairdSmxAmvt7753 [place] [address] Platelets 233 E3/mcL Normal 130-400 [facility] Comment on above: Performed By: #### 2 566951 ####KADEN BairdLluOgja7392 [place] [address] WBC (Leukocytes) 9.0 E3/mcL Normal 3.6-11.0 [facility] Comment on above: Performed By: #### 2 359890 ####KADEN BairdAlqMbaj2122 [place] [address] UA Completeon 04-11-2017 UA Blood Negative Normal Negative [facility] Comment on above: Result Comment: High concentration of Ascorbic Acid present in urine. This may cause False Negative Occ Blood. Review microscopic results and patient's clinical symptoms. Performed By: #### 8 [id number] ####KADEN Urinalysis Automated Jsiwjgxylu2643 [place] [address] UA Amorph Chastity 1+ /HPF Abnormal None [facility] Comment on above: Performed By: #### 8 0817493 ####KADEN Urinalysis Automated Rrtlwwzuik6054 [place] [id number] UA Ascorbic Acid 40 mg/dL High <=19 [facility] Comment on above: Performed By: #### 8 4445604 ####KADEN Urinalysis Automated Hhrtqwemaq7182 [place] [address] UA Bacteria Trace Abnormal None [facility] Comment on above: Performed By: #### 8 7881909 ####KADEN Urinalysis Automated Vxcclxomhc5101 [place] [id number] UA Clarity Cloudy Abnormal Clear [facility] Comment on above: Performed By: #### 8 [id number] ####KADEN Urinalysis Automated Ltgipgoayv1461 [place] [address] UA Leuk Est Negative Normal Negative [facility] Comment on above: Performed By: #### 8 [id number] ####KADEN Urinalysis Automated [address]uxx[address] [place] [address] UA Mucous Few Abnormal Trace [facility] Comment on above: Performed By: #### 8 [id number] ####KADEN Urinalysis Automated Ajegfrfkqq[address] [place] [address] UA Nitrite Negative Normal Negative [facility] Comment on above: Performed By: #### 8 [id number] ####KADEN Urinalysis Automated Fdggrsjxim9345[address] [place] [address] UA pH 7.0 Normal 4.6-8.0 [facility] Comment on above: Performed By: #### 8 [id number] ####KADEN Urinalysis Automated Bkumberxnr[address] [place] [address] UA Protein Negative Normal Negative [facility] Comment on above: Performed By: #### 8 [id number] ####KADEN Urinalysis Automated Ocpxisawbx[address]47[address] [place] [address] UA Spec Grav 1.025 Normal 1.003-1.03 0 [facility] Comment on above: Performed By: #### 8 [id number] ####KADEN Urinalysis Automated Jnjwibwncz8639[address] [place] [address] UA Squam Epithelial 5-10 Abnormal 0-5 [facility] Comment on above: Performed By: #### 8 [id number] ####KADEN Urinalysis Automated Yqfpvyfogg4843[address] [place] [address] UA Urobilinogen 2.0 mg/dL Abnormal [facility] Comment on above: Performed By: #### 8 [id number] ####KADEN Urinalysis Automated Venwvulbps9506 [place] [address] Urine, color Yellow Normal Yellow [facility] Comment on above: Performed By: #### 8 [id number] ####KADEN Urinalysis Automated Bgrgmaikkj0303 [place] [address] Urine, erythrocytes 0-3 Normal 0-3 [facility] Comment on above: Performed By: #### 8 [id number] ####KADEN Urinalysis Automated Fcvmsxwvqc8855 [place] [address] Urine, glucose Negative Normal Negative [facility] Comment on above: Performed By: #### 8 [id number] ####KADEN Urinalysis Automated Dpveibgesr6926[address] [place] [address] Urine, ketones presence 2+ Abnormal Negative [facility] Comment on above: Performed By: #### 8 [id number] ####KADEN Urinalysis Automated Fxtbaebwbq7899[address] [place] [address] Urine, urobilinogen Negative Normal Negative [facility] Comment on above: Performed By: #### 8 [id number] ####KADEN Urinalysis Automated Zipnxyyqfr0115 [place] [address] eGFRon 04-11-2017 eGFR (non-black) mL/min/{1.73_m2} Normal [facility] Comment on above: Order Comment: Order added by Discern Expert. Performed By: #### 1 [id number] ####KADEN IxpXvuk2170 [place] [address] eGFR AA >60 Normal [facility] Comment on above: Order Comment: Order added by Discern Expert. Performed By: #### 1 [id number] ####KADEN VivHxbn7651 [place] [address] U BhCG Qlton 03-20-2017 HCG.beta subunit Qn Negative Normal Neg [facility] Comment on above: Performed By: #### 2 [id number] ####KADEN Urinalysis Manual Isrilkwoij9567 [place] [id number] UA Completeon 03-20-2017 UA Blood Negative Normal Negative [facility] Comment on above: Performed By: #### 8 [id number] ####KADEN Urinalysis Automated Ioiauhdnpp2809 [place] [address] UA Amorph Chastity 1+ /HPF Abnormal None [facility] Comment on above: Performed By: #### 8 [id number] ####KADEN Urinalysis Automated Yxsecbwunv8656 [place] [id number] UA Bacteria 2+ /HPF Abnormal None [facility] Comment on above: Performed By: #### 8 [id number] ####KADEN Urinalysis Automated Fbhrcioqow9119 [place] [address] UA Clarity Cloudy Abnormal [facility] Comment on above: Performed By: #### 8 [id number] ####KADEN Urinalysis Automated Otgsuxsmjr5547[address] [place] [address] UA Leuk Est 1+ Abnormal Negative [facility] Comment on above: Performed By: #### 8 [id number] ####KADEN Urinalysis Automated Nssbuptqps5736[address] [place] [address] UA Mucous Occasional Abnormal Trace [facility] Comment on above: Performed By: #### 8 [id number] ####KADEN Urinalysis Automated Vcsikbhlqt761820 [place] [address] UA Nitrite Negative Normal Negative [facility] Comment on above: Performed By: #### 8 [id number] ####KADEN Urinalysis Automated Huvkebvgai737[address] [place] [address] UA pH 6.0 Normal 4.6-8.0 [facility] Comment on above: Performed By: #### 8 [id number] ####KADEN Urinalysis Automated Kwtifgbxpf8052[address] [place] [address] UA Protein 1+ Abnormal Negative [facility] Comment on above: Performed By: #### 8 [id number] ####KADEN Urinalysis Automated Zuuvtwllcz[address] [place], [place] [id number] UA Spec Grav 1.019 Normal 1.003-1.03 0 [facility] Comment on above: Performed By: #### 8 [id number] ####KADEN Urinalysis Automated Drnlvxfuxp8105 [place] [address] UA Squam Epithelial 5-10 Abnormal 0-5 [facility] Comment on above: Performed By: #### 8 [id number] ####KADEN Urinalysis Automated Uosbbnbqix0942 [place] [address] UA Urobilinogen Negative Normal [facility] Comment on above: Performed By: #### 8 [id number] ####KADEN Urinalysis Automated Sxarwebdfb2873 [place] [address] UA WBC >50 Abnormal 0-5 [facility] Comment on above: Performed By: #### 8 [id number] ####KADEN Urinalysis Automated Xqqchtfzqc2771 [place] [address] Urine, color Yellow Normal Yellow [facility] Comment on above: Performed By: #### 8 [id number] ####KADEN Urinalysis Automated Vncamafftu3616 [place] [address] Urine, erythrocytes 5-10 Abnormal 0-3 [facility] Comment on above: Performed By: #### 8 [id number] ####KADEN Urinalysis Automated Rswnhgootr8509 [place] [address] Urine, glucose Negative Normal Negative [facility] Comment on above: Performed By: #### 8 [id number] ####KADEN Urinalysis Automated Tahymruseb4610 [place] [address] Urine, ketones presence Negative Normal Negative [facility] Comment on above: Performed By: #### 8 [id number] ####KADEN Urinalysis Automated Ywepfllspo5869 [place] [address] Urine, urobilinogen Negative Normal Negative [facility] Comment on above: Performed By: #### 8 [id number] ####KADEN Urinalysis Automated Tnkskvkorw3360 [place] [address] Vital Signs Date Time Vital Sign Value Performing Clinician Facility 07-18-2023 10:30-0500 Body mass index (BMI) [Ratio] 26.7 kg/m2 [employer] Work Phone: [facility] 07-18-2023 10:30-0500 Body weight 75.03 kg [employer] Work Phone: [facility] 07-18-2023 10:30-0500 Diastolic blood pressure 68 mm[Hg] [employer] Work Phone: [facility] 07-18-2023 10:30-0500 Systolic blood pressure 106 mm[Hg] Cuong Ortiz DO Work Phone: [facility] 02-11-2023 14:13-0400 Body height 165.1 cm PA-Ventura Wyatt Work Phone: [facility] 02-11-2023 14:13-0400 Body temperature 97.9 [degF] PA-C Andie Wyatt Work Phone: [facility] 02-11-2023 14:13-0400 Body weight 70.55 kg PA-Ventura Wyatt Work Phone: [facility] 02-11-2023 14:13-0400 Diastolic blood pressure 80 mm[Hg] PA-Ventura Wyatt Work Phone: [facility] 02-11-2023 14:13-0400 Heart rate 60 /min SADAF Wyatt Work Phone: [facility] 02-11-2023 14:13-0400 Respiratory rate 15 /min SADAF Wyatt Work Phone: [facility] 02-11-2023 14:13-0400 SaO2% (BldA) [Mass fraction] 99 % SADAF Wyatt Work Phone: [facility] 02-11-2023 14:13-0400 Systolic blood pressure 134 mm[Hg] PA-Ventura Wyatt Work Phone: [facility] 02-08-2023 12:36-0400 Body height 165.1 cm PA-Ventura Wyatt Work Phone: [facility] 02-08-2023 12:36-0400 Body temperature 98.2 [degF] FERMIN-Ventura Wyatt Work Phone: [facility] 02-08-2023 12:36-0400 Body weight 72.57 kg SAADF Wyatt Work Phone: [facility] 02-08-2023 12:36-0400 Diastolic blood pressure 84 mm[Hg] PA-C Andie Wyatt Work Phone: [facility] 02-08-2023 12:36-0400 Heart rate 74 /min PA-C Andie Wyatt Work Phone: [facility] 02-08-2023 12:36-0400 Respiratory rate 15 /min PA-C Andie Wyatt Work Phone: [facility] 02-08-2023 12:36-0400 SaO2% (BldA) [Mass fraction] 98 % PA-C Andie Wyatt Work Phone: [facility] 02-08-2023 12:36-0400 Systolic blood pressure 150 mm[Hg] PA-C Andie Wyatt Work Phone: [facility] 12-19-2022 14:43-0400 Body temperature 96.9 [degF] FERMIN-C Andie Wyatt Work Phone: [facility] 12-19-2022 14:43-0400 Diastolic blood pressure 74 mm[Hg] PA-C Andie Wyatt Work Phone: [facility] 12-19-2022 14:43-0400 Heart rate 59 /min PA-C Andie Wyatt Work Phone: [facility] 12-19-2022 14:43-0400 Respiratory rate 18 /min FERMIN-Ventura Wyatt Work Phone: [facility] 12-19-2022 14:43-0400 SaO2% (BldA) [Mass fraction] 100 % PA-C Andie Wyatt Work Phone: [facility] 12-19-2022 14:43-0400 Systolic blood pressure 115 mm[Hg] PA-C Andie Wyatt Work Phone: [facility] 12-19-2022 14:00-0400 Diastolic blood pressure 89 mm[Hg] PA-Ventura Wyatt Work Phone: [facility] 12-19-2022 14:00-0400 Heart rate 79 /min PA-C Andie Wyatt Work Phone: [facility] 12-19-2022 14:00-0400 Respiratory rate 16 /min PAZhao Wyatt Work Phone: [facility] 12-19-2022 14:00-0400 SaO2% (BldA) [Mass fraction] 99 % PA-Ventura Wyatt Work Phone: [facility] 12-19-2022 14:00-0400 Systolic blood pressure 150 mm[Hg] PA-Ventura Wyatt Work Phone: [facility] 12-19-2022 03:30-0400 Body height 165.1 cm PAZhao Wyatt Work Phone: [facility] 12-19-2022 03:30-0400 Body weight 72.2 kg PAZhao Wyatt Work Phone: [facility] 12-18-2022 23:07-0400 Body height 165.1 cm PAZhao Wyatt Work Phone: [facility] 12-18-2022 23:07-0400 Body weight 74.2 kg SADAF Wyatt Work Phone: [facility] 12-18-2022 23:05-0400 Body temperature 98.5 [degF] SADAF Wyatt Work Phone: [facility] 08-20-2022 14:31-0500 Body height 165.1 cm PAZhao Wyatt Work Phone: [facility] 08-20-2022 14:31-0500 Body temperature 98.9 [degF] FERMIN-Ventura Wyatt Work Phone: [facility] 08-20-2022 14:31-0500 Body weight 71.55 kg SADAF Wyatt Work Phone: [facility] 08-20-2022 14:31-0500 Diastolic blood pressure 87 mm[Hg] PA-Ventura Wyatt Work Phone: [facility] 08-20-2022 14:31-0500 Heart rate 97 /min PAZhao Wyatt Work Phone: [facility] 08-20-2022 14:31-0500 Respiratory rate 18 /min PA-Ventura Wyatt Work Phone: [facility] 08-20-2022 14:31-0500 SaO2% (BldA) [Mass fraction] 98 % PA-Ventura Wyatt Work Phone: [facility] 08-20-2022 14:31-0500 Systolic blood pressure 135 mm[Hg] PA-Ventura Wyatt Work Phone: [facility] 02-08-2022 03:06-0400 Body weight 68.[address] CUONG ORTIZ . [facility] Comment on above: Performed By: #### AFPMAT #### [facility] [address] [place] [address] Dr. Juan Antonio Ibarra 02-05-2022 18:24-0400 Body height 165.1 cm PAZhao Wyatt Work Phone: [facility] 02-05-2022 18:24-0400 Body temperature 98.3 [degF] PAZhao Wyatt Work Phone: [facility] 02-05-2022 18:24-0400 Body weight 67.9 kg SADAF Wyatt Work Phone: [facility] 02-05-2022 18:24-0400 Diastolic blood pressure 68 mm[Hg] PA-Ventura Wyatt Work Phone: [facility] 02-05-2022 18:24-0400 Heart rate 92 /min SADAF Wyatt Work Phone: [facility] 02-05-2022 18:24-0400 Respiratory rate 18 /min PAZhao Wyatt Work Phone: [facility] 02-05-2022 18:24-0400 SaO2% (BldA) [Mass fraction] 99 % PAZhao Wyatt Work Phone: [facility] 02-05-2022 18:24-0400 Systolic blood pressure 125 mm[Hg] SADAF Wyatt Work Phone: [facility] Encounters Encounter Date Encounter Type Care Provider Facility Start: 10-28-2023 End: 10-28-2023 ambulatory CUONG DIANA Not Available Start: 10-14-2023 End: 10-14-2023 ambulatory CUONG DIANA Not Available Start: 09-30-2023 End: 09-30-2023 ambulatory CUONG DIANA Not Available Start: 09-12-2023 End: 09-12-2023 ambulatory CUONG DIANA Not Available Start: 08-15-2023 End: 08-15-2023 ambulatory [facility] Start: 08-15-2023 End: 08-15-2023 ambulatory CUONG DIANA Not Available Start: 07-22-2023 Documentation procedure Lucio HARPER Work Phone: [facility] Comment on above: Outgoing Ca ll Start: 07-18-2023 Clinisync Result Encounter Cuong Diana DO Work Phone: [facility] Unsolicited Start: 07-18-2023 Clinisync Result Encounter Cuong Diana DO Work Phone: [facility] Unsolicited Start: 07-18-2023 End: 07-18-2023 ambulatory CUONG DIANA Not Available Start: 07-18-2023 End: 07-18-2023 Office outpatient visit 15 minutes Cuogn Diana DO Work Phone: [facility] Comment on above: Second trimester pre gnancy Start: 07-18-2023 End: 07-18-2023 ambulatory [facility] Start: 07-03-2023 End: 07-03-2023 ambulatory CUONG R [facility] Start: 07-03-2023 End: 07-03-2023 Telemedicine consultation with patient Rosaura HARPER Work Phone: [facility] Comment on above: Family history of ge netic disorder (Primary Dx); Genetic testing; Fetus with trisomy 13, single gestation Start: 06-20-2023 End: 06-20-2023 ambulatory BARB KRAMER Not Available Start: 05-23-2023 End: 05-23-2023 ambulatory CUONG ORTIZ Not Available Start: 04-16-2023 ambulatory Cesar Clayton acility:[facility] Start: 02-11-2023 End: 02-11-2023 Emergency department patient visit Johnson Annie Facility:[facility] Start: 02-11-2023 End: 02-11-2023 Emergency department patient visit SADAF Wyatt Work Phone: [facility] Work Phone: Start: 02-08-2023 End: 02-08-2023 Emergency department patient visit Elle Rhodes Facility:[facility] Start: 02-08-2023 End: 02-08-2023 Emergency department patient visit SADAF Wyatt Work Phone: [facility] Work Phone: Start: 12-19-2022 End: 12-19-2022 ambulatory Arden Orozco Facility:[facility] Start: 12-19-2022 End: 12-19-2022 Evaluation and management of inpatient SADAF Wyatt Work Phone: [facility] Work Phone: Start: 12-19-2022 End: 12-19-2022 observation encounter SADAF Wyatt Work Phone: [facility] Work Phone: Start: 10-24-2022 End: 10-24-[address] CUONG ORTIZ . Facility: Start: 10-23-2022 Registered Recurring SADAF Wyatt Work Phone: [facility] Start: 08-20-2022 End: 08-20-2022 Emergency department patient visit Elle Rhodes Facility:[facility] Start: 08-20-2022 End: 08-20-2022 Emergency department patient visit SADAF Wyatt Work Phone: [facility] Work Phone: Start: 07-23-[address] CUONG ORTIZ . Facili ty:[facility] Start: 07-09-2022 End: 07-09-[address] CUONG ORTIZ . Facility:[facility] Start: 07-05-2022 End: 07-07-2022 Evaluation and management of inpatient DR CUONG ORTIZ . Facility: Start: 07-02-2022 End: 07-02-2022 [facility] Facility: Start: 06-28-2022 End: 06-28-[address] CUONG ORTIZ . Facility:[facility] Start: 06-21-2022 End: 06-21-2022 [facility] Facility:[facility] Start: 06-16-2022 End: 06-16-2022 [...] . Facility:[facility] Start: 05-24-2022 End: 05-24-2022 [facility] Facility:[facility] Start: 04-04-2022 End: 04-05-2022 [...] visit SADAF Wyatt Work Phone: [facility] Start: 12-26-2021 End: 12-27-[address] CUONG ORTIZ . Facility:[facility] Start: 12-07-2021 End: 12-08-[address] CUONG ORTIZ . Facility: Start: 12-27-2017 End: 12-27-2017 Patient encounter Christian Ivan Facility:[facility] Start: 12-12-2017 End: 12-12-2017 Emergency department patient visit Luke Barbosa Facility:[facility] Start: 12-12-2017 Patient encounter Facil [id number] Start: 12-07-2017 Evaluation and management of inpatient CLARA JAMA Facility:[facility] Start: 12-03-2017 Evaluation and management of inpatient CLARA JAMA Facility:[facility] Start: 12-03-2017 Patient encounter procedure CLARA JAMA Facility:[facility] Start: 12-02-2017 Evaluation and management of inpatient CLARA JAMA Facility:[facility] Start: 11-30-2017 End: 12-02-2017 Evaluation and management of inpatient CLARA OLIVIA JAMA [facility] Start: 11-30-2017 End: 11-30-2017 Patient encounter Salomon Nguyen Facility:[facility] Start: 11-30-2017 Patient encounter Facil [id number] Start: 11-28-2017 End: 11-28-2017 Patient encounter CLARA JAMA [facility] Start: 11-21-2017 End: 11-21-2017 Patient encounter OKSANA MASON [facility] Start: 11-21-2017 End: 11-21-2017 Patient encounter Juanita Frank Facility:[facility] Start: 11-20-2017 Patient encounter Facil [id number] Start: 11-17-2017 End: 11-17-2017 Patient encounter Christian Ivan Facility:[facility] Start: 11-16-2017 Patient encounter Facil [id number] Start: 11-07-2017 End: 11-07-2017 Patient encounter OKSANA AMADO [facility] Start: 10-31-2017 End: 10-31-2017 Patient encounter CLARA JAMA [facility] Start: 10-24-2017 End: 10-24-2017 Patient encounter MARCO ANTONIO ANTONIO [facility] Start: 10-16-2017 End: 10-16-2017 Patient encounter Christian Ivan Facility:[facility] Start: 10-08-2017 End: 10-08-2017 Patient encounter [facility] Start: 10-08-2017 End: 10-08-2017 Patient encounter OKSANA AMADO [facility] Start: 10-01-2017 End: 10-02-2017 Patient encounter Christian Ivan Facility:[facility] Start: 09-10-2017 End: 09-11-2017 Patient encounter LUIS DANIEL VALERI [facility] Start: 09-10-2017 End: 09-10-2017 Patient encounter KRIS Yola HOYT [facility] Start: 09-10-2017 End: 09-10-2017 Patient encounter CLARA JAMA [facility] Start: 09-03-2017 End: 09-04-2017 Patient encounter Christian Ivan Facility:[facility] Start: 08-28-2017 Ambulatory NAGA [facility] Start: 08-13-2017 End: 08-14-2017 Patient encounter CLARA JAMA [facility] Start: 08-13-2017 End: 08-13-2017 Patient encounter MEREDITH BENITO [facility] Start: 08-13-2017 End: 08-13-2017 Patient encounter [facility] Start: 08-10-2017 End: 08-10-2017 Emergency department patient visit Luke Barbosa Facility:[facility] Start: 08-06-2017 End: 08-07-2017 Patient encounter Christianshoaib Ivan Facility:[facility] Start: 07-23-2017 End: 07-24-2017 Patient encounter Christianshoaib Ivan Facility:[facility] Start: 07-18-2017 End: 07-18-2017 Patient encounter CLAAR JAMA [facility] Start: 07-09-2017 End: 07-10-2017 Patient encounter Christian Morelia Shekhar Facility:[facility] Start: 06-25-2017 End: 06-26-2017 Patient encounter Christian Morelia Ivan Facility:[facility] Start: 06-12-2017 End: 06-12-2017 Patient encounter Christianshoaib Ivan Facility:[facility] Start: 05-14-2017 End: 05-15-2017 Patient encounter Christianshoaib Ivan Facility:[facility] Start: 05-01-2017 End: 05-02-2017 Patient encounter Salomon Nguyen Facility:[facility] Start: 04-23-2017 End: 04-23-2017 Patient encounter Yasmin Evans Facility:[facility] Start: 04-22-2017 End: 04-22-2017 Emergency department patient visit Luke Barbosa Facility:[facility] Start: 04-18-2017 End: 04-18-2017 Emergency department patient visit Luke Barbosa Facility:[facility] Start: 04-16-2017 End: 04-17-2017 Patient encounter Gamaliel Savage Facility:[facility] Start: 04-16-2017 End: 04-17-2017 Patient encounter Christian Ivan Facility:[facility] Start: 04-11-2017 End: 04-11-2017 Emergency department patient visit Nodr No Doctor Assigned Facility:[facility] Start: 03-26-2017 End: 03-27-2017 Patient encounter Luke Barbosa Facility:[facility] Start: 03-20-2017 End: 03-20-2017 Emergency department patient visit Nodr No Doctor Assigned Facility:[facility] Start: 03-01-2017 End: 03-01-2017 Emergency department patient visit Nodr No Doctor Assigned Facility:[facility] Procedures Date Procedure Procedure Detail [...] on above: Result Comment: PERF ORMED BY: [facility] [address] [place] [address] PATHOLOGIST [employer]EMAN MALVIN MEDLEY M.D. Start: 12-19-2022 X-ray of [...] Adult depression scr eening assessment Rosaura Renee [facility] Work Phone: Start: 11-30-2017 Antibody screen SHAINA JAMA Comment on above: Performed By: #### T &S #### [place] [id number] Aerobic microbial culture FERMIN Wyatt Work Phone: Investigation of transfusion reaction SADAF Wyatt Work Phone: Plan of Treatment Date Care Activity Detail Author Start: 12-18-2032 DTaP,Tdap and Td Vaccines (10 - Td or Tdap) DTaP,Tdap and Td Vaccines (10 - Td or Tdap) [facility] Start: 09-11-2023 Adult BMI Screening Adult BMI Screening [facility] Start: 09-11-2023 Tobacco Screening Tobacco Screening [facility] Start: 08-15-2023 End: 08-15-2023 Patient encounter procedure 08/15/2023 2:15 PM EST Appointment [facility] [address] [address] [facility] Start: 08-15-2023 End: 08-15-2023 Patient encounter procedure 08/15/2023 9:10 AM EST Routine [facility] [address] [place] [id number] Cuong Ortiz, DO [address] [place] [address] [facility] Start: 07-18-2023 End: 07-18-2023 Patient encounter procedure 07/18/2023 8:00 AM EST Appointment [facility] [place] [address] [phone] [facility] [place] Start: 05-02-2023 Depression Screening Depression Screening [facility] Start: 02-15-2023 COVID-19 Vaccine () COVID-19 Vaccine () [facility] Start: 02-15-2023 Influenza vaccination [facility] Start: 12-19-2022 Bacteria identified in Urine by Culture Urine Culture [facility] Start: 12-19-2022 [facility] Start: 12-19-2022 CT of head without contrast CT head/brain wo con [facility] Start: 12-19-2022 CT Unspecified body region WO contrast [facility] Start: 12-19-2022 Consultation [facility] Start: 12-19-2022 Hospital admission [facility] Start: 12-19-2022 X-ray of left foot XR foot LT 2V [facility] Start: 12-19-2022 XR Foot - left [address] [facility] Start: 12-18-2022 Computed tomography of thoracic spine without contrast CT thoracic spine wo con [facility] Start: 12-18-2022 CT cervical spine without contrast CT cervical spine wo [facility] Start: 12-18-2022 CT Cervical spine [facility] [facility] Start: 12-18-2022 CT Lumbar spine WO contrast [facility] Start: 12-18-2022 CT of head without contrast CT head/brain wo con [facility] Start: 12-18-2022 CT of lumbar spine without contrast CT lumbar spine wo [facility] Start: 12-18-2022 CT Thoracic spine WO contrast [facility] Start: 12-18-2022 CT Unspecified body region WO contrast [facility] Start: 12-18-2022 Pelvis X-ray XR pelvis 1-2V [facility] Start: 12-18-2022 Plain chest X-ray XR chest 1V portable [facility] Start: 12-18-2022 X-ray of both knees XR knee BI 2V [facility] Start: 12-18-2022 XR Chest Single view [facility] Start: 12-18-2022 XR Knee - bilateral 2 Views [facility] Start: 12-18-2022 XR Pelvis [address] [facility] Start: 2022 Screening for malignant neoplasm of cervix [facility] Start: 02-05-2022 [facility] Work Phone: Start: 2013 Screening for malignant neoplasm of cervix Pap Smear [facility] Start: 2010 Adult BMI Follow Up Plan Adult BMI Follow Up Plan [facility] Anaerobic microbial culture Anaerobic Culture [facility] Bacteria identified in Urine by Culture [facility] Patient Education [facility] Work Phone: Patient referral [facility] Work Phone: Immunizations Immunization Date Immunization Notes Care Provider Fa cility 12-18-2022 tetanus toxoid, redu swati diphtheria toxoid, and acellular pertussis vaccine, adsorbed SADFA Wyatt Work Phone: [facility] 05-19-2013 influenza virus vaccine, unspecified formulation Rosaura HARPER Work Phone: [facility] Payers Date Payer Category Payer Self-pay 2017 Medicaid 2017 Unknown 1992 Unknown [id number] 2.16.840.1.381844.3.579.2.278 1992 Unknown [id number] 2.16840.1.159563.3.579.2.278 1992 Unknown [id number] 2.16840.1.139108.3.579.2.278 1992 Unknown [id number] 2.16.840.1.678673.3.579.2.278 1992 Unknown [id number] 2.16.840.1.988185.3.579.2.593 1992 Unknown [id number] 2.16.840.1.792102.3.579.2.593 1992 Unknown [id number] 2.16.840.1.041675.3.579.2.593 1992 Unknown [id number] 2.16.840.1.498299.3.579.2.593 1992 Unknown [id number] 2.16.840.1.684182.3.579.2.593 1992 Unknown [id number] 2.16.840.1.197375.3.579.2.593 1992 Unknown [id number] 2.16.840.1.636897.3.579.2.593 1992 Unknown [id number] 2.16.840.1.095443.3.579.2.593 1992 Unknown [id number] 2.16.840.1.159773.3.579.2.59 1992 Unknown [id number] 2.16.840.1.365654.3.579.2.59 1992 Unknown [id number] 2.16.840.1.900393.3.579.2.59 1992 Unknown [id number] 2.16.840.1.369336.3.579.2.59 1992 Unknown [id number] 2.16.840.1.138209.3.579.2.59 1992 Unknown [id number] 2.16.840.1.309503.3.579.2.59 1992 Unknown [id number] 2.16.840.1.392458.3.579.2.593 1992 Unknown [id number] 2.16.840.1.204430.3.579.2.59 1992 Unknown [id number] 2.16.840.1.921885.3.579.2.59 1992 Unknown [id number] 2.16.840.1.331033.3.579.2.593 1992 Unknown [id number] 2.16.840.1.979787.3.579.2.59 1992 Unknown [id number] 2.16.840.1.476038.3.579.2.593 1992 Unknown [id number] 2.16.840.1.601565.3.579.2.593 1992 Unknown [id number] 2.16.840.1.880981.3.579.2.593 1992 Unknown [id number] 2.16.840.1.818191.3.579.2.1286 1992 Unknown [id number] 2.16.840.1.060918.3.579.2.1286 1992 Unknown [id number] 2.16.840.1.189878.3.579.2.1286 1992 Unknown [id number] 2.16.840.1.924747.3.579.2.1258 1992 Unknown [id number] 2.16.840.1.988219.3.579.2.9 1992 Unknown [id number] 2.16.840.1.574004.3.579.2.1258 1992 Unknown [id number] 2.16.840.1.264370.3.579.2.1259 1992 Unknown [id number] 2.16.840.1.810441.3.579.2.1258 1992 Unknown [id number] 2.16.840.1.382003.3.579.2.9 1992 Unknown [id number] 2.16.840.1.576081.3.579.2.1258 1992 Unknown [id number] 2.16.840.1.035886.3.579.2.1259 1959 Medicaid [id number] 1959 Medicaid [id number] Medicaid [id number] Unknown Regular Auto/Liability [id number] Unknown [id number] 2.16.840.1.343724.3.579.2.531 Unknown [id number] 2.16.840.1.005141.3.579.2.531 Unknown [id number] 2.16.840.1.367842.3.579.2.531 Unknown [id number] 2.16.840.1.211326.3.579.2.531 Unknown [id number] 2.840.1.608730.3.579.2.531 Social History Date Type Detail Facility Start: 02-05-2022 End: 05-09-2023 Tobacco smoking status [facility] Never smoked tobacco (finding) [facility] Start: 1990 Sex Assigned At Female [facility] Start: 12-19-2022 End: 12-19-2022 Tobacco smoking status [facility] Current some day smoker [facility] Start: 03-28-2022 End: 02-11-2023 Tobacco smoking status [facility] Ex-smoker (finding) [facility] History of tobacco use Current smoker [facility] History of tobacco use Tobacco U se Types Packs/Day Years Used Date Smoking Tobacco: Former Vaping/E-cigarettes Smokeless Tobacco: Never [facility] Start: 03-28-2022 Tobacco use and exposure Smokeless tobacco non-user [facility] Start: 06-26-2023 Alcohol intake Current non-drinker of alcohol (finding) [facility] Start: 03-18-2018 End: 05-09-2023 History of Social function [facility] Start: 03-18-2018 End: 05-09-2023 Alcohol Use Disorder Identification Test - Consumption [AUDIT-C] [facility] Frequency of Alcohol Consumption Never [facility] Start: 03-11-2023 [facility] Start: 1990 Sex Assigned At Not on file [facility] Start: 07-18-2023 Alcohol intake Lifetime non-drinker (finding) [facility] Goals Date Patient Goal Desired Activity /State Functional Status Date Assessment Result Facility 12-19-2022 Functional status Patient at Baseline [facility] Work Phone: Mental Status Date Assessment Result Facility 12-19-2022 Cognitive function Cognitive Sta tus Patient at Baseline [facility] Work Phone: Clinical Notes 11-13-2021 to 07-22-2023 [...] this encounter [facility] 07-18-2023 History of Present illness Narrative Reason [...] deficit disorder) ADHD (attention deficit hyperactivity disorder) ([facility]) Anxiety Bacterial vaginosis Bipolar disorder (CMS/HCC) Club foot Depression (CMS/[facility]) Female infertility Heart problem Hormone imbalance No [...] nursing note reviewed. Exam conducted with a apparatus lineman present. Vitals: Estimated body mass index is [...] Ortiz DO documented in this encounter [facility] 07-03-2023 History of Present illness Narrative Summary: [facility] Genetic Counseling Note Provider at different site/location than patient. I confirmed the patient is located in the [facility]. Zuleika Wyatt is currently at home and provider at remote site. The patient consented to be treated electronically via this form of telemedicine. This visit was not related to an office visit or procedure in the past 7 days, and in-office follow up is not recommended in the next 24 hours. Video Visit via Real-time Synchronous Audiovisual Provider Location: [facility] AT [address] [phone] Patient Location: Patient's home Patient Location Heating Element Builder: None Video Visit Consent Statement: I discussed [...] that there are some limitations compared to lsuy-ur-lznd evaluations. We elected to proceed. Name: Zuleika Wyatt : 1990 Date of Visit: 07/03/2023 Email: [email or web address] Preferred contact method: any Partner's Name: Jag Age: 45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
[2023-11-02 14:11] VITALS: BP 127/75; PULSE 83
== END 2023-11-02 15:00 | disposition home or self-care (01) ==
LOC: FBCO 02:52 → FBC 14:04
PROVIDERS: PCP Physician Assistant; Visit Provider Obstetrics & Gynecology
DX: O35.8XX0 Maternal care for other (suspected) fetal abnormality and damage, not applicable or unspecified (principal)
CPT/HCPCS: 59025

== ENCOUNTER 2023-11-04 22:37 | Outpatient (REF) | payer MEDICAID, SELFPAY ==
--- OUTSIDE RECORDS SUMMARY | 2023-11-04 22:43 | XMS_ITS | CCD ---
Author Organization [facility] Care Team Providers Care Geoint Analyst Name Role Phone EVITACLARA Unavailable Unavail able SERENITY MALDONADO Unavailable Unavailable OKSANA CARO Unavailable UnavaNAGA Hull Unavailable Unavailable BARBOSA, LUKE MALIK Unavailable Unavailable Salomon Nguyen Unavailable Unavailable Salomon Nguyen Unavailable Unavailable Barbosa, Luke Unavailable Unavailable Sebec, Christian A Unavailable Unavailable Barbosa, Luke Unavailable Unavailable Sebec, Christian A Unavailable Unavailable Barbosa, Luke Unavailable Unavailable Shekhar, Christian A Unavailable Unavailable Barbosa, Luke Unavailable Unavailable Sebec, Christian A Unavailable Unavailable Barbosa, Luke Unavailable Unavailable Sebec, Christian A Unavailable Unavailable Shekhar, Christian A Unavailable Unavailable Barbosa, Luke Unavailable Unavailable Shekhar, Christian A Unavailable Unavailable Barbosa, Luke Unavailable Unavailable Sebec, Christian A Unavailable Unavailable Sebec, Christian A Unavailable Unavailable Barbosa, Luke Unavailable Unavailable Barbosa, Luke Unavailable Unavailable Woo, Emiliano Unavailable Unavailable Woo, Emiliano Unavailable Unavailable Patrick Salomon R Unavailable Unavailable Barbosa, Luke Unavailable Unavailable Barbosa, Luke Unavailable Unavailable Oscar, Jag W Unavailable Unavailable Cameron, Jag W Unavailable Unavailable Sebec, Christian A Unavailable Unavailable Barbosa, Luke Unavailable Unavailable Sebec, Christian A Unavailable Unavailable Barbosa, Luke Unavailable Unavailable No Doctor Assigned, Nodr Unavailable Unavail able Ivanauskas, Saulius Unavailable Unavailable Ivanauskas, Saulius Unavailable Unavailable Savage, Gamaliel M Unavailable Unavailable Savage, Gamaliel M Unavailable Unavailable Barbosa, Luke Unavailable Unavailable [place], Yasmin D Unavailable Unavailable Barbosa, Luke Unavailable [...] Juanita Unavailable Unavailable Barbosa, Luke Unavailable Unavailable Shekhar, Christian A Unavailable Unavailable Sebec, Christian A Unavailable Unavailable Barbosa, Luke Unavailable Unavailable Shekhar, Christian A Unavailable Unavailable Barbosa, Luke Unavailable Unavailable Barbosa, Luke Unavailable Unavailable Cameron, Jag W Unavailable Unavailable Oscar, Jag W Unavailable Unavailable Shekhar, Christian A Unavailable Unavailable Barbosa, Luke Unavailable Unavailable Savage, Gamaliel M Unavailable Unavailable Savage, Gamaliel M Unavailable Unavailable Barbosa, Luke Unavailable Unavailable Sebec, Christian A Unavailable Unavailable Barbosa, Luke Unavailable [...] Primary Care Provider SADAF Hess Emergency Provider [phone] SADAF Wyatt [facility] Elle Whitney Emergency Provider DR CUONG PAGAN Consulting Unavailable [facility] Primary Care Unavailable DIANA ., DR ACOSTA Attending Unavailable DIANA ., DR ACOSTA Admitting Unavailable DIANA ., DR ACOSTA Admitting Unavailable DIANA ., DR ACOSTA Attending Unavailable [facility] Primary Care Unavailable DIANA ., DR ACOSTA Consulting Unavailable SUSI, DR FELECIA Chadwick Consulting Unavailable [facility] Primary Care Unavailable JUANAK .DR CAMACHO Admitting Unavailabl e KARASIK ., DR CAMACHO Attending Unavailabl e KARASIK ., DR CAMACHO Consulting Unavailabl e WEST, DR GAMALIEL Fischer Consulting Unavailable DIANA ., DR ACOSTA Consulting Unavailable ZIEBER, DR FELECIA Chadwick Consulting Unavailable WILLIAMS ., BARB Admitting Unavailable WILLIAMS ., BARB Attending Unavailable [facility] Primary Care Unavailable WILLIAMS ., BARB Consulting Unavailable DIANA ., DR ACOSTA Admitting Unavailable DIANA ., DR ACOSTA Attending Unavailable [facility] Primary Care Unavailable DIANA ., DR ACOSTA Consulting Unavailable [facility] Primary Care Unavailable KARASIK ., DR CAMACHO Admitting Unavailabl e KARASIK ., DR CAMACHO Attending Unavailabl e KARASIK ., DR CAMACHO Consulting Unavailabl e DIANA ., DR ACOSTA Admitting Unavailable DIANA ., DR ACOSTA Attending Unavailable [facility] Primary Care Unavailable DIANA ., DR ACOSTA Consulting Unavailable ZIEBER, DR FELECIA Chadwick Consulting Unavailable DIANA ., DR ACOSTA Admitting Unavailable DIANA ., DR ACOSTA Attending Unavailable [facility] Primary Care Unavailable DIANA ., DR ACOSTA Consulting Unavailable ZIEBER, DR FELECIA Chadwick Consulting Unavailable PRATIMA, BRODIE Consulting Unavailable DIANA ., DR ACOSTA Consulting Unavailable [facility] Primary Care Unavailable DIANA ., DR ACOSTA Attending Unavailable DIANA ., DR ACOSTA Admitting Unavailable ZIEBER, DR FELECIA Chadwick Consulting Unavailable DIANA ., DR ACOSTA Consulting Unavailable [facility] Primary Care Unavailable DIANA ., DR ACOSTA Attending Unavailable DIANA ., DR ACOSTA Admitting Unavailable DIANA ., DR ACOSTA Admitting Unavailable DIANA ., DR ACOSTA Attending Unavailable [facility] Primary Care Unavailable DIANA ., DR ACOSTA Consulting Unavailable ZIEBER, DR FELECIA Chadwick Consulting Unavailable DIANA ., DR ACOSTA Admitting Unavailable DIANA ., DR ACOSTA Attending Unavailable [facility] Primary Care Unavailable WEST, DR GAMALIEL Fischer Consulting Unavailable DIANA ., DR ACOSTA Consulting Unavailable [facility] Primary Care Unavailable KARASIK ., DR CAMACHO Admitting Unavailabl e KARASIK ., DR CAMACHO Attending Unavailabl e KARASIK ., DR CAMACHO Consulting Unavailabl e DIANA ., DR ACOSTA Consulting Unavailable ZIEBER, DR FELECIA Chadwick Consulting Unavailable DIANA ., DR ACOSTA Admitting Unavailable DIANA ., DR ACOSTA Attending Unavailable [facility] Primary Care Unavailable WEST, DR GAMALIEL Fischer Consulting Unavailable DIANA ., DR ACOSTA Consulting Unavailable DIANA ., DR ACOSTA Admitting Unavailable DIANA ., DR ACOSTA Attending Unavailable [facility] Primary Care Unavailable DIANA ., DR ACOSTA Consulting Unavailable DIANA ., DR ACOSTA Admitting Unavailable DIANA ., DR ACOSTA Attending Unavailable [facility] Primary Care Unavailable DIANA ., DR ACOSTA Consulting Unavailable ZIEBER, DR FELECIA Chadwick Consulting Unavailable DIANA ., DR ACOSTA Admitting Unavailable DIANA ., DR ACOSTA Attending Unavailable [facility] Primary Care Unavailable DIANA ., DR ACOSTA Consulting Unavailable DAINA ., DR ACOSTA Admitting Unavailable DIANA ., DR ACOSTA Attending Unavailable [facility] Primary Care Unavailable DIANA ., DR ACOSTA Consulting Unavailable [facility] Primary Care Unavailable DIANA ., DR ACOSTA Attending Unavailable DIANA ., DR ACOSTA Admitting Unavailable DIANA ., DR ACOSTA Admitting Unavailable DIANA ., DR ACOSTA Attending Unavailable [facility] Primary Care Unavailable DIANA ., DR ACOSTA Admitting Unavailable DIANA ., DR ACOSTA Attending Unavailable [facility] Primary Care Unavailable KARASIK ., DR CAMACHO Consulting Unavailabl e DIANA ., DR ACOSTA Consulting Unavailable DIANA ., DR ACOSTA Procedure Practitioner Unavail able ORLANDO PRASAD Consulting Unavailable JACQUES FLETCHER Consulting Unavailable DIANA ., DR ACOSTA Admitting Unavailable DIANA ., DR ACOSTA Attending Unavailable [facility] Primary Care Unavailable KARASIK ., DR CAMACHO Consulting Unavailabl e ZIEBER, DR FELECIA Chadwick Consulting Unavailable SADAF Wyatt Primary Care Provider MD Farhan Jean Attending Provider DO Lui Oscar Emergency Provider Itzkowitz, DO Arden Admit Provider Itzkocece, DO Arden Attending Provider FRED Ventura Other Provider UnavailMD Juan Edwards Other Provider BRISA MoniqueC Ailyn Other Provider MD Jacques Valerio Other Provider MD Edith Urias Other Provider [phone] SADAF Wyatt Primary Care Provider Meagan, BIOPROCESS DEVELOPMENT ENGINEER-BC Elle E Emergency Provider [phone] BRANNON Valencia Emergency Provider Andie Wyatt PA-C [...] [BEES] Propensity to adverse reactions (disorder) 8 [facility] Repository (2 sources) Mold spore; Translations: [MOLD SPORES] Propensity to adverse reactions (disorder) 8 [facility] Repository (18 sources) Penicillins; Translations: [PENICILLINS] Propensity to adverse reactions to drug (disorder) 4 [facility] Repository (12 sources) Sulfonamides (Antibiotic); Translations: [SULFA (SULFONAMIDE ANTIBIOTICS)] Propensity to adverse reactions to drug (disorder) 8 [facility], [facility] Repository (1 source) Bee/Wasp/Ant venom; Translations: [Bee Stings] Propensity to adverse reactions to drug (disorder) [facility] Repository (1 source) mold extract; Translations: [Mold] Drug Allergy [facility] Repository (1 source) Sulfonamides (Antibiotic); Translations: [sulfa drugs] Propensity to adverse reactions to drug (disorder) [facility] Repository (4 sources) bee venom; Translations: [BEE VENOM] Propensity to adverse reactions to drug (disorder) 8 [facility] Repository (1 source) OTHER; Translations: [OTHER] Propensity to adverse reactions to food (disorder) 8 [facility] Repository (1 source) MOLDS & SMUTS; Translations: [MOLDS & SMUTS] Propensity to adverse reactions to drug (disorder) 8 [facility] Repository (4 sources) SULFA ANTIBIOTICS; Translations: [SULFA ANTIBIOTICS] Propensity to adverse reactions to drug (disorder) 8 [facility] Repository (1 source) Sulfonamides (Antibiotic) Drug allergy (disorder) 4 [facility] Repository (4 sources) Bee Venom Protein (Honey Bee); Translations: [BEE VENOM PROTEIN (HONEY BEE)] Propensity to adverse reactions to drug 2 [facility] (1 source) Penicillin Drug Allergy [address] [facility] Repository (1 source) Sulfacetamide Drug Allergy [address] [facility] Repository Medications Current Medications Medication Drug Class(es) [...] mouth in the morning. 0 02/27/2023 Active [place] (No Known Home Meds) (2 sources) Start: 12-18-2022 [place] (No Known Home Meds) Active December 18, [...] (-1 ORAL) Take by mouth. 0 Active Kuriptpu-Bbd-Zj-FA (, w/Iron & FA,) 27-0.8 MG tablet (3 sources) Fbleswdo-Vhg-Qy-FA (, w/Iron & FA,) 27-0.8 MG tablet 1 (one) time each day at the same time. 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 [facility] AFP VALUE 70.2 ng/mL . [facility] COMMENT: Comment . [facility] Comment on above: Alma Chaudhary , Ph.D., [facility] Director References: Available Upon Request. Multiples Of Median Cutoffs For AFP Elevations Briscoe 2.5 Black 2.8 IDD 2.0 Twins 4.5 Abbreviation Definitions IDD - Insulin Dep Diabetes OSBR - Open Spina Bifida Risk For further inquiries contact [employer] [facility] at [phone]. This test was developed and its performance characteristics determined by [employer]. It has not been cleared or approved by the Food and Drug Administration. Performed at: [facility] [address] [place], [place] [id number] Step Finisher: Oz Harkins [facility], Phone: [phone] GEST. AGE ON COLLECTION DATE 20.4 . weeks [facility] GESTAT. AGE BASED ON LMP . [facility] Comment on above: Recalculations are n ot recommended when gestational dating by LMP and ultrasound are within 10 days. INSULIN DEP DIABETES No . [facility] INTERPRETATION Comment . [facility] Comment on above: Interpretation: Scre en Negative [...] Customer Services to discuss available options. The [employer] recommends amniocentesis be offered to women age 35 and older. [age] [facility] MULTIPLE GESTATION No . [facility] OSBR RISK 1 IN 6301 . [facility] RACE . [facility] RESULTS Report . [facility] TEST RESULTS: Negative . [facility] WEIGHT 159 . lbs [facility] N N LMP [id number] 3 16 N 1 Y 159 N N N N White/ [facility] Urinalysis macro (dipstick) panel (U)on 07-18-2023 Bilirubin, UA Negative Negative - 4(70) +++ mg/dL [facility] Blood, UA Negative Negative - 50 Rakesh/mcL [facility] Clarity, UA Clear [facility] Color, UA Yellow [facility] Glucose, UA Negative Negative - 2000(110) ++++ mg/dL [facility] Interpretation and review of laboratory results Normal [facility] Ketones, UA Negative Negative - 160(16) ++++ mg/dL [facility] Leukocytes, UA Negative Negative - 500+++ Matti/mcL [facility] Nitrite, UA Negative Negative - Positive [facility] pH, UA 5.5 5 - 9 [facility] Protein, UA Negative Negative - 2000(20) ++++ mg/dL [facility] Spec Grav, UA 1.020 1 - 1.03 [facility] Urobilinogen, UA 1.0 0.2 - 12 mg/dL [facility] ABO/Rh Retypeon 12-19-2022 ABO/RH Recheck Result Positive Normal [facility] Comment on above: Result Comment: PERF ORMED BY: [facility] [address] [place] [address] PATHOLOGIST FOOD PREPARATION SUPERVISOR MALVIN MEDLEY M.D. Amphetamine Screen Ql (U)Ord ered By: Oscar Poe on 12-19-2022 Amphetamines Ql (U) Negative Negative [facility] Amylaseon 12-19-2022 Amylase [Catalytic activity/Vol] 35 U/L Normal 29-103 [facility] Comment on above: Performed By: #### C BC, CREAT, GLU, LYTES, AST, ETOH, BARB, LIPASE, CK, BUN ####[facility] [id number] [address] Aspartate Amino Transferaseo n 12-19-2022 AST [Catalytic activity/Vol] 26 U/L Normal 13-39 [facility] Comment on above: Performed By: #### C BC, CREAT, GLU, LYTES, AST, ETOH, BARB, LIPASE, CK, BUN ####[facility] [id number] Automated erythrocytes count in urine sediment (number/area)Ordered By: Oscar Poe on 12-19-2022 RBC Auto (Urine sed) [#/Area] 5-9 [HPF] 0-4 [facility] Automated leukocytes count i n urine sediment (number/area)Ordered By: Oscar Poe on 12-19-2022 WBC Auto (Urine sed) [#/Area] 10-19 [HPF] 0-4 [facility] Barbiturates [Presence] in U rine by Screen methodOrdered By: Oscar Poe on 12-19-2022 Barbiturates Screen Ql (U) Negative Negative [facility] Benzodiazepines Screen Ql (U )Ordered By: Oscar Poe on 12-19-2022 Benzodiazepines Ql (U) Negative Negative [facility] Benzoylecgonine [Presence] i n Urine by Screen methodOrdered By: Oscar Poe on 12-19-2022 Benzoylecgonine Screen Ql (U) Negative Negative [facility] Bilirubin Test strip Ql (U)O rdered By: Oscar Poe on 12-19-2022 Bilirubin Ql (U) Negative Negative [facility] Blood Urea Nitrogenon 2022 Urea nitrogen [Mass/Vol] 21 mg/dL Normal 7-25 [facility] Comment on above: Performed By: #### C BC, CREAT, GLU, LYTES, AST, ETOH, BARB, LIPASE, CK, BUN ####[facility] [id number] cervical spine wo conon 0 12-19-2022 CT cervical spine wo con [facility] [address] [place], [place] [id number] CT Scan Report Signed Patient: Zuleika Wyatt MR#: [id number] : 1990 Acct:[id number] Age/Sex: 32 / F ADM Date: 12/19/22 Loc: 4 Room: [address] [place] [address] Type: ADM INOo Attending Dr: Arden Orozco DO Copies to: DO Arden Jefferson DO Ordering Provider: Oscar Poe DO Date of Service: 12/18/22 CT/CT cervical spine wo con: f ([id number]) CT/CT head/brain wo con: f CT BRAIN [...] Pimentel Jr., Sammie12/19/2022 10:25 AM Dictation Location: [place] [address] Transcribed By: [facility] 12/19/22 1025 Dictated By: Rah Pimentel Jr, DO 12/19/22 1016 Signed By: 12/19/22 1025 [facility] CT head/brain wo conon 12-19 CT head/brain wo con [facility] [place] [address] CT Scan Report Signed Patient: Zuleika Wyatt MR#: [id number] : 1990 Acct:[id number] Age/Sex: 32 / F ADM Date: 12/19/22 Loc: Room: [address] [place] [address] Type: DIS INOo Attending Dr: Arden Orozco [...] HERNIATION. Impression dictated by: Rah Pimentel Jr., DGillian12/19/2022 3:28 PM Dictation Location: [place] [address] Transcribed By: [facility] 12/19/22 1528 Dictated By: Rah Pimentel Jr, DO 12/19/22 1524 Signed By: 12/19/22 1528 [facility] CT lumbar spine wo [facility] CT lumbar spine wo [facility] [place] [address] CT Scan Report Signed Patient: Zuleika Wyatt MR#: [id number] : 1990 Acct:[id number] Age/Sex: 32 / F ADM Date: 12/19/22 Loc: Room: [address] [place] [address] Type: ADM INOo Attending Dr: Arden Orozco DO Copies to: DO Arden Jefferson DO Ordering Provider: Oscar Poe DO Date of Service: 12/18/22 CT/CT thoracic spine wo con: f ([id number]) CT/CT lumbar spine wo con: f CT [...] narrowing or hypertrophy. The ribs within the qqbdb-sb-lojz appear intact. No paraspinal soft tissue abnormalities are present. The ascending aorta is mildly ectatic. The heart is not fully imaged though it is at least borderline prominent. There is no consolidation, pleural effusion or pneumothorax within the jgzib-oh-chsl. No lumbar compression fractures are identified. There [...] The intra-abdominal and pelvic structures within the wkvty-ef-tcaa show no contributory findings. CT/CT thoracic spine wo con IMPRESSION: MILD THORACIC SCOLIOSIS. NO ACUTE BONY INJURY INVOLVING THE THORACIC OR LUMBAR SPINE. Impression dictated by: Adela Mahan M.D.12/19/2022 10:36 AM Dictation Location: [place] [address] Transcribed By: [facility] 12/19/22 1036 Dictated By: Adela Mahan MD 12/19/22 1026 Signed By: 12/19/[address] [facility] Cannabinoids [Presence] in U rine by Screen methodOrdered By: Oscar Poe on 12-19-2022 Cannabinoids Screen Ql (U) Positive Negative [facility] Comment on above: These are unconfirme d results and should not be used for legal purposes. Drug Cut-Off Concentration: AMPH 1000 ng/mL SEEMA 200 ng/mL LAZ 200 ng/mL COCM 300 ng/mL OP 300 ng/mL PCP 25 ng/mL THC 20 ng/mL Color Auto (U)Ordered By: Fernando Poe on 12-19-2022 Color (U) Yellow Yellow [facility] Complete Blood Count Auto Di ffon 12-19-2022 Basophils (Bld) [#/Vol] 0.1 10*3/uL Normal 0.0-0.2 [facility] Comment on above: Result Comment: PERF ORMED BY: [facility] [address] [place] [address] PATHOLOGIST FOOD PREPARATION SUPERVISOR MALVIN MEDLEY M.D. Performed By: #### C BC, CREAT, GLU, LYTES, AST, ETOH, BARB, LIPASE, CK, BUN ####[address] Basophils/100 WBC (Bld) 0.7 % Normal . [facility] Comment on above: Performed By: #### C BC, CREAT, GLU, LYTES, AST, ETOH, BARB, LIPASE, CK, BUN ####[address] Eosinophils (Bld) [#/Vol] 0.0 10*3/uL Normal 0.0-0.45 [facility] Comment on above: Performed By: #### C BC, CREAT, GLU, LYTES, AST, ETOH, BARB, LIPASE, CK, BUN ####[address] Eosinophils/100 WBC (Bld) 0.2 % Normal . [facility] Comment on above: Performed By: #### C BC, CREAT, GLU, LYTES, AST, ETOH, BARB, LIPASE, CK, BUN ####[address] Erythrocyte distribution width (RBC) [Ratio] 14.4 % Normal 11.9-15.3 [facility] Comment on above: Performed By: #### C BC, CREAT, GLU, LYTES, AST, ETOH, BARB, LIPASE, CK, BUN ####[address] Hematocrit (Bld) [Volume fraction] 36.2 % Normal 34.0-46.4 [facility] Comment on above: Performed By: #### C BC, CREAT, GLU, LYTES, AST, ETOH, BARB, LIPASE, CK, BUN ####[address] Hemoglobin (Bld) [Mass/Vol] 11.9 g/dL Normal 11.8-15.4 [facility] Comment on above: Performed By: #### C BC, CREAT, GLU, LYTES, AST, ETOH, BARB, LIPASE, CK, BUN ####[address] Lymphocytes (Bld) [#/Vol] 2.2 10*3/uL Normal 1.00-4.8 [facility] Comment on above: Performed By: #### C BC, CREAT, GLU, LYTES, AST, ETOH, BARB, LIPASE, CK, BUN ####[address] Lymphocytes/100 WBC (Bld) 21.8 % Normal . [facility] Comment on above: Performed By: #### C BC, CREAT, GLU, LYTES, AST, ETOH, BARB, LIPASE, CK, BUN ####[address] MCH (RBC) [Entitic mass] 26.9 pg Normal 24.7-34.3 [facility] Comment on above: Performed By: #### C BC, CREAT, GLU, LYTES, AST, ETOH, BARB, LIPASE, CK, BUN ####[address] MCV (RBC) [Entitic vol] 82.1 fL Normal 80-100 [facility] Comment on above: Performed By: #### C BC, CREAT, GLU, LYTES, AST, ETOH, BARB, LIPASE, CK, BUN ####[address] Mean Corpuscular HGB Conc 32.8 g/dL Normal 32.0-35.0 [facility] Comment on above: Performed By: #### C BC, CREAT, GLU, LYTES, AST, ETOH, BARB, LIPASE, CK, BUN ####[address] Monocytes (Bld) [#/Vol] 0.8 10*3/uL Normal 0.0-0.8 [facility] Comment on above: Performed By: #### C BC, CREAT, GLU, LYTES, AST, ETOH, BARB, LIPASE, CK, BUN ####[address] Monocytes/100 WBC (Bld) 22.19 % High 0.00-20.00 [facility] Comment on above: Result Comment: For adults in ED, MDW > 20.0 may be associated with a higher risk of sepsis during the first 12 hrs of hospital admission Performed By: #### C BC, CREAT, GLU, LYTES, AST, ETOH, BARB, LIPASE, CK, BUN ####[address] Monocytes/100 WBC (Bld) 7.4 % Normal . [facility] Comment on above: Performed By: #### C BC, CREAT, GLU, LYTES, AST, ETOH, BARB, LIPASE, CK, BUN ####[address] Neutrophils (Bld) [#/Vol] 7.2 10*3/uL Normal 1.8-7.7 [facility] Comment on above: Performed By: #### C BC, CREAT, GLU, LYTES, AST, ETOH, BARB, LIPASE, CK, BUN ####[address] Neutrophils/100 WBC (Bld) 69.9 % Normal . [facility] Comment on above: Performed By: #### C BC, CREAT, GLU, LYTES, AST, ETOH, BARB, LIPASE, CK, BUN ####[address] NRBC% 0.1 /100{WBC} Normal 0-0.5 [facility] Comment on above: Performed By: #### C BC, CREAT, GLU, LYTES, AST, ETOH, BARB, LIPASE, CK, BUN ####[address] Platelet mean volume (Bld) [Entitic vol] 8.1 fL Normal 6.3-10.7 [facility] Comment on above: Performed By: #### C BC, CREAT, GLU, LYTES, AST, ETOH, BARB, LIPASE, CK, BUN ####[address] Platelets (Bld) [#/Vol] 223 10*3/uL Normal 150-450 [facility] Comment on above: Performed By: #### C BC, CREAT, GLU, LYTES, AST, ETOH, BARB, LIPASE, CK, BUN ####[address] RBC (Bld) [#/Vol] 4.42 10*6/uL Normal 3.60-5.00 [facility] Comment on above: Performed By: #### C BC, CREAT, GLU, LYTES, AST, ETOH, BARB, LIPASE, CK, BUN ####[address] WBC (Bld) [#/Vol] 10.3 10*3/uL Normal 3.8-11.6 [facility] Comment on above: Performed By: #### C BC, CREAT, GLU, LYTES, AST, ETOH, BARB, LIPASE, CK, BUN ####[address] Creatine Kinaseon 12-19-2022 CK [Catalytic activity/Vol] 50 U/L Normal 30-223 [facility] Comment on above: Result Comment: PERF ORMED BY: [facility] [address] [place] [address] PATHOLOGIST FOOD PREPARATION SUPERVISOR MALVIN MEDLEY M.D. Performed By: #### C BC, CREAT, GLU, LYTES, AST, ETOH, BARB, LIPASE, CK, BUN ####[address] Creatinineon 12-19-2022 Creatinine [Mass/Vol] 0.84 mg/dL Normal 0.60-1.20 [facility] Comment on above: Performed By: #### C BC, CREAT, GLU, LYTES, AST, ETOH, BARB, LIPASE, CK, BUN ####[facility] [place] [address] [place] Creatinine Clr Calc Pharmacy 98.76 [facility] Comment on above: Performed By: #### C BC, CREAT, GLU, LYTES, AST, ETOH, BARB, LIPASE, CK, BUN ####[facility] GFR/1.73 sq M.predicted MDRD (S/P/Bld) [Vol rate/Area] mL/min/{1.73_m2} [facility] Comment on above: Performed By: #### C BC, CREAT, GLU, LYTES, AST, ETOH, BARB, LIPASE, CK, BUN ####[facility] [place] [address] [place] Dipstick and Microscopicon 0 12-19-2022 Appearance (U) Clear Normal Clear [facility] Comment on above: Order Comment: Name Collection Type:: Clean-Voided Midstream Performed By: #### U RDS, UHCG, CUU, ADDONUAPLUS #### [facility] [address] [place] [address] [place] Bacteria,Urine None Seen Normal None Seen [facility] Comment on above: Order Comment: Name Collection Type:: Clean-Voided Midstream Performed By: #### U RDS, UHCG, CUU, ADDONUAPLUS #### [facility] [address] [place] [address] [place] Bilirubin,Urine Negative Normal Negative [facility] Comment on above: Order Comment: Name Collection Type:: Clean-Voided Midstream Performed By: #### U RDS, UHCG, CUU, ADDONUAPLUS #### [facility] [address] [place] [address] [place] Color (U) Yellow Normal Yellow [facility] Comment on above: Order Comment: Name Collection Type:: Clean-Voided Midstream Performed By: #### U RDS, UHCG, CUU, ADDONUAPLUS #### [facility] [address] [place] [address] [place] Glucose Ql (U) Normal Normal Normal [facility] Comment on above: Order Comment: Name Collection Type:: Clean-Voided Midstream Performed By: #### U RDS, UHCG, CUU, ADDONUAPLUS #### [facility] [address] [place] [address] Hyaline Casts,Urine 0-8 Normal 0-8 [facility] Comment on above: Order Comment: Name Collection Type:: Clean-Voided Midstream Performed By: #### U RDS, UHCG, CUU, ADDONUAPLUS #### [facility] [address] [place] [address] Ketones Ql (U) 1+ High Negative [facility] Comment on above: Order Comment: Name Collection Type:: Clean-Voided Midstream Performed By: #### U RDS, UHCG, CUU, ADDONUAPLUS #### [facility] [address] [place] [address] Leukocyte esterase Test strip Ql (U) 2+ High Negative [facility] Comment on above: Order Comment: Name Collection Type:: Clean-Voided Midstream Performed By: #### U RDS, UHCG, CUU, ADDONUAPLUS #### [facility] [address] [place] [address] Nitrite,Urine Negative Normal Negative [facility] Comment on above: Order Comment: Name Collection Type:: Clean-Voided Midstream Performed By: #### U RDS, UHCG, CUU, ADDONUAPLUS #### [facility] [address] [place] [address] Occult Blood,Urine Negative Normal Negative [facility] Comment on above: Order Comment: Name Collection Type:: Clean-Voided Midstream Performed By: #### U RDS, UHCG, CUU, ADDONUAPLUS #### [facility] [address] [place] [address] pH (U) 5.5 [pH] Normal 5.0-9.0 [facility] Comment on above: Order Comment: Name Collection Type:: Clean-Voided Midstream Performed By: #### U RDS, UHCG, CUU, ADDONUAPLUS #### [facility] [address] [place] [address] [place] Protein,Urine Negative Normal Negative [facility] Comment on above: Order Comment: Name Collection Type:: Clean-Voided Midstream Performed By: #### U RDS, UHCG, CUU, ADDONUAPLUS #### [facility] [address] [place] [address] [place] RBC,Urine 5-9 High 0-4 [facility] Comment on above: Order Comment: Name Collection Type:: Clean-Voided Midstream Performed By: #### U RDS, UHCG, CUU, ADDONUAPLUS #### [facility] [address] [place] [address] Specificy Bryant,Urine 1.025 Normal 1.001-1.[address] [facility] Comment on above: Order Comment: Name Collection Type:: Clean-Voided Midstream Performed By: #### U RDS, UHCG, CUU, ADDONUAPLUS #### [facility] [address] [place] [address] Squamous Epithelial Cell,Urine 3-4 High 0-2 [facility] Comment on above: Order Comment: Name Collection Type:: Clean-Voided Midstream Performed By: #### U RDS, UHCG, CUU, ADDONUAPLUS #### [facility] [address] [place] [address] Urobilinogen,Urine Normal Normal Normal [facility] Comment on above: Order Comment: Name Collection Type:: Clean-Voided Midstream Performed By: #### U RDS, UHCG, CUU, ADDONUAPLUS #### [facility] [address] [place] [address] [place] WBC,Urine 10-19 High 0-4 [facility] Comment on above: Order Comment: Name Collection Type:: Clean-Voided Midstream Performed By: #### U RDS, UHCG, CUU, ADDONUAPLUS #### [facility] [address] [place] [address] [place] Drug Screen,Urineon 12-20-19 23 Amphetamine Screen,Urine Negative Normal Negative [facility] Comment on above: Performed By: #### U RDS, UHCG, CUU, ADDONUAPLUS #### [address] Barbiturate Screen,Urine Negative Normal Negative [facility] Comment on above: Performed By: #### U RDS, UHCG, CUU, ADDONUAPLUS #### [place] [address] [place] Benzodiazepines Screen,Urine Negative Normal Negative [facility] Comment on above: Performed By: #### U RDS, UHCG, CUU, ADDONUAPLUS #### [address] Cannabinoid Screen,Urine Positive High Negative [facility] Comment on above: Result Comment: Thes e are unconfirmed results and should not be used for legal purposes. Drug Cut-Off Concentration: AMPH 1000 ng/mL SEEMA 200 ng/mL LAZ 200 ng/mL COCM 300 ng/mL OP 300 ng/mL PCP 25 ng/mL THC 20 ng/mL PERFORMED BY: [place] [address] PATHOLOGIST FOOD PREPARATION SUPERVISOR MALVIN MEDLEY M.D. Performed By: #### U RDS, UHCG, CUU, ADDONUAPLUS #### [place] [address] [place] Cocaine Screen,Urine Negative Normal Negative [facility] Comment on above: Performed By: #### U RDS, UHCG, CUU, ADDONUAPLUS #### [place] [address] [place] Opiate Screen,Urine Negative Normal Negative [facility] Comment on above: Performed By: #### U RDS, UHCG, CUU, ADDONUAPLUS #### [place] [address] [place] Phencyclidine Screen,Urine Negative Normal Negative [facility] Comment on above: Performed By: #### U RDS, UHCG, CUU, ADDONUAPLUS #### [address] [place] [address] [place] ECG 12 lead ECGon 12-19-2022 ECG 12 lead ECG [facility] [address] [place] [address] Electrocardiograph Report Signed Patient: Zuleika Wyatt MR#: [id number] : 1990 Acct:[id number] Age/Sex: 32 / F ADM Date: 12/19/22 Loc: Room: [address] [place] [address] Type: DIS INOo Attending Dr: Arden Orozco [...] ECGs available Confirmed by OSCAR POE DO ([id number]) on 12/19/2022 10:18:39 PM Referred By: Electronically Signed By:OSCAR POE DO Transcribed By: MUS Signed By Oscar Poe DO 12/[address] [facility] Electrolyteson 12-19-2022 Anion gap [Moles/Vol] 14.5 mmol/L Normal 6.0-15.0 [facility] Comment on above: Performed By: #### C BC, CREAT, GLU, LYTES, AST, ETOH, BARB, LIPASE, CK, BUN ####[facility] [id number] [place] [id number] [facility] Chloride [Moles/Vol] 105 mmol/L Normal 98-107 [facility] Comment on above: Performed By: #### C BC, CREAT, GLU, LYTES, AST, ETOH, BARB, LIPASE, CK, BUN ####[facility] [address] [place] [id number] [facility] CO2 [Moles/Vol] 20.0 mmol/L Low 21.0-31.0 [facility] Comment on above: Performed By: #### C BC, CREAT, GLU, LYTES, AST, ETOH, BARB, LIPASE, CK, BUN ####[place] [id number] Potassium [Moles/Vol] 3.5 mmol/L Normal 3.5-5.1 [facility] Comment on above: Performed By: #### C BC, CREAT, GLU, LYTES, AST, ETOH, BARB, LIPASE, CK, BUN ####[address] Sodium [Moles/Vol] 136 mmol/L Normal 136-145 [facility] Comment on above: Performed By: #### C BC, CREAT, GLU, LYTES, AST, ETOH, BARB, LIPASE, CK, BUN ####[address] Ethyl Alcohol Profileon Ethanol [Mass/Vol] mg/dL Normal [facility] Comment on above: Performed By: #### C BC, CREAT, GLU, LYTES, AST, ETOH, BARB, LIPASE, CK, BUN ####[address] Percent Ethanol Not performed Normal [facility] Comment on above: Result Comment: PERF ORMED BY: [facility] [address] [place] [address] PATHOLOGIST FOOD PREPARATION SUPERVISOR MALVIN MEDLEY M.D. Performed By: #### C BC, CREAT, GLU, LYTES, AST, ETOH, BARB, LIPASE, CK, BUN ####[place] [id number] [facility] Glucoseon 12-19-2022 Glucose [Mass/Vol] 93 mg/dL Normal 70-100 [facility] Comment on above: Result Comment: [place] Glucose Reference Range is dependent on time and content of last meal. Glucose of more than 200 mg/dL in a nonstressed, ambulatory subject supports the diagnosis of Diabetes Mellitus. ADA recommended reference range Performed By: #### C BC, CREAT, GLU, LYTES, AST, ETOH, BARB, LIPASE, CK, BUN ####[facility] [id number] HCG ( test) IA.rapi d Ql (U)Ordered By: Oscar Poe on 12-19-2022 HCG ( test) Ql (U) Negative [facility] HCG,Qualitative Serumon 07-0 HCG,Qualitative Serum Negative Normal [facility] Comment on above: Result Comment: PERF ORMED BY: [place] [address] PATHOLOGIST FOOD PREPARATION SUPERVISOR MALVIN MEDLEY M.D. Performed By: #### H CGQUAL #### [facility] [address] [place] [address] HCG,Urineon 12-19-2022 Beta HCG ( test) Ql (U) Negative Normal [facility] Comment on above: Order Comment: Name Collection Type:: Clean-Voided Midstream Result Comment: PERF ORMED BY: [place] [address] PATHOLOGIST FOOD PREPARATION SUPERVISOR MALVIN MEDLEY M.D. Performed By: #### U RDS, UHCG, CUU, ADDONUAPLUS #### [address] Ketones Auto test strip (U) [Mass/Vol]Ordered By: Oscar Poe on 12-19-2022 Ketones (U) [Mass/Vol] 1+ Negative [facility] Laboratory - UrinalysisOrder ed By: Oscar Poe on 12-19-2022 Hyaline casts LM Ql (Urine sed) 0-8 [LPF] 0-8 [facility] Lipaseon 12-19-2022 Lipase [Catalytic activity/Vol] 29.0 U/L Normal 11.0-82.0 [facility] Comment on above: Result Comment: PERF ORMED BY: [place] [address] PATHOLOGIST FOOD PREPARATION SUPERVISOR MALVIN MEDLEY M.D. Performed By: #### C BC, CREAT, GLU, LYTES, AST, ETOH, BARB, LIPASE, CK, BUN ####[facility] [address] [place] [id number] [facility] Nitrite Test strip Ql (U)Ord ered By: Oscar Poe on 12-19-2022 Nitrite Ql (U) Negative Negative [facility] Opiates [Presence] in Urine by Screen methodOrdered By: Oscar Poe on 12-19-2022 Opiates Screen Ql (U) Negative Negative [facility] Phencyclidine Screen Ql (U)O rdered By: Oscar Poe on 12-19-2022 Phencyclidine Ql (U) Negative Negative [facility] Protein Auto test strip (U) [Mass/Vol]Ordered By: Oscar Poe on 12-19-2022 Protein (U) [Mass/Vol] Negative Negative [facility] Specific gravity Auto test s trip (U) [Rel density]Ordered By: Oscar Poe on 12-19-2022 Specific gravity (U) [Rel density] 1.025 1.001-1.[address] [facility] Squamous epithelial cells de tection in urine sediment by light microscopyOrdered By: Oscar Poe on 12-19-2022 Epithelial cells.squamous LM Ql (Urine sed) 3-4 [HPF] 0-2 [facility] Type and Screenon 12-19-2022 ABO and Rh group Nom (Bld) Blood group A Rh(D) positive Normal [facility] Comment on above: Result Comment: PERF ORMED BY: [facility] [address] [place] [id number] PATHOLOGIST FOOD PREPARATION SUPERVISOR MALVIN MEDLEY M.D. Urine Cultureon 12-19-2022 Bacteria identified Cx Nom (U) >100,000 colonies/ml mixed bacterial skin contaminants 2 Days PERFORMED BY: [facility] [address] [place] [address] PATHOLOGIST FOOD PREPARATION SUPERVISOR MALVIN MEDLEY M.D. [facility] Comment on above: Performed By: #### U RDS, UHCG, CUU, ADDONUAPLUS ####[place] [id number] [place] [id number] [facility] Urine bacteria detection by automated methodOrdered By: Oscar Poe on 12-19-2022 Bacteria Auto Ql (U) None seen None Seen [facility] Urine clarity by refractomet ry automatedOrdered By: Oscar Poe on 12-19-2022 Clarity Refractometry automated (U) Clear Clear [facility] Urine culture routineOrdered By: Oscar Poe on 12-19-2022 Bacteria identified Cx Nom (U) [address] [facility] Urine glucose measurement by automated test strip (mass/volume)Ordered By: Oscar Poe on 12-19-2022 Glucose Auto test strip (U) [Mass/Vol] Normal mg/dL Normal [facility] Urine hemoglobin detection b y automated test stripOrdered By: Oscar Poe on 12-19-2022 Hemoglobin Auto test strip Ql (U) Negative Negative [facility] Urine leukocyte esterase det ection by automated test stripOrdered By: Oscar Poe on 12-19-2022 Leukocyte esterase Auto test strip Ql (U) 2+ Negative [facility] Urobilinogen Auto test strip (U) [Mass/Vol]Ordered By: Oscar Poe on 12-19-2022 Urobilinogen (U) [Mass/Vol] Normal mg/dL Normal [facility] XR knee BI 2Von 12-19-2022 XR knee BI 2V [facility] [place] [address] XRay Report Signed Patient: Zuleika Wyatt MR#: [id number] : 1990 Acct:[id number] Age/Sex: 32 / F ADM Date: 12/19/22 Loc: Room: [address] [place] [address] Type: ADM INOo Attending Dr: Arden Orozco DO Copies to: DO Arden Jefferson DO Ordering Provider: Oscar Poe DO Date of Service: 12/18/22 XR/XR knee BI 2V: f ([id number]) XR/XR chest 1V portable: TRAUMATIC INJURY ([id number]) XR/XR pelvis 1-2V: f ([id number]) XR/XR foot LT 2V: f CLINICAL DATA: [...] Adela Mahan M.D.12/19/2022 10:41 AM Dictation Location: [place] [address] Transcribed By: DONTE 12/19/22 1041 Dictated By: Adela Mahan MD 12/19/22 1036 Signed By: 12/19/[address] [facility] pH Auto test strip (U)Ordere d By: Oscar Poe on 12-19-2022 pH (U) 5.5 [pH] 5.0-9.0 [facility] Amylase [Enzymatic activity/ volume] in Serum or PlasmaOrdered By: Oscar Poe on 12-18-2022 Amylase [Catalytic activity/Vol] 35 U/L 29-103 [facility] Aspartate aminotransferase [ Enzymatic activity/volume] in Serum or PlasmaOrdered By: Oscar Poe on 12-18-2022 AST [Catalytic activity/Vol] 26 U/L 13-39 [facility] Basophils Auto (Bld) [#/Vol] Ordered By: Oscar Poe on 12-18-2022 Basophils (Bld) [#/Vol] 0.1 10*3/uL 0.0-0.2 [facility] Basophils/100 WBC Auto (Bld) Ordered By: Oscar Poe on 12-18-2022 Basophils/100 WBC (Bld) 0.7 % . [facility] Carbon dioxide, total [Moles /volume] in Serum or PlasmaOrdered By: Oscar Poe on 12-18-2022 CO2 [Moles/Vol] 20.0 mmol/L 21.0-31.0 [facility] Chloride [Moles/volume] in S gwendolyn or PlasmaOrdered By: Oscar Poe on 12-18-2022 Chloride [Moles/Vol] 105 mmol/L 98-107 [facility] Choriogonadotropin.beta subu nit [Units/volume] in Serum or PlasmaOrdered By: Oscar Poe on 12-18-2022 HCG.beta subunit Qn Negative [facility] Creatine kinase [Enzymatic a ctivity/volume] in Serum or PlasmaOrdered By: Oscar Poe on 12-18-2022 CK [Catalytic activity/Vol] 50 U/L 30-223 [facility] Creatinine [Mass/volume] in Serum or PlasmaOrdered By: Oscar Poe on 12-18-2022 Creatinine [Mass/Vol] 0.84 mg/dL 0.60-1.20 [facility] Eosinophils Auto (Bld) [#/Vo l]Ordered By: Oscar Poe on 12-18-2022 Eosinophils (Bld) [#/Vol] 0.0 10*3/uL 0.0-0.45 [facility] Eosinophils/100 WBC Auto (Bl d)Ordered By: Oscar Poe on 12-18-2022 Eosinophils/100 WBC (Bld) 0.2 % . [facility] Erythrocyte distribution wid th Auto (RBC) [Ratio]Ordered By: Oscar Poe on 12-18-2022 Erythrocyte distribution width (RBC) [Ratio] 14.4 % 11.9-15.3 [facility] Ethanol [Mass/volume] in Ser um or PlasmaOrdered By: Oscar Poe on 12-18-2022 Ethanol [Mass/Vol] mg/dL [facility] Ethanol [Mass/Vol] TNP [facility] Comment on above: Test not performed Glucose [Mass/volume] in Ser um or PlasmaOrdered By: Oscar Poe on 12-18-2022 Glucose [Mass/Vol] 93 mg/dL 70-100 [facility] Comment on above: ADA recommended refe rence rangeRandom Glucose Reference Range is dependent on time and content of last meal. Glucose of more than 200 mg/dL in a nonstressed, ambulatory subject supports the diagnosis of Diabetes Mellitus. Hematocrit Auto (Bld) [Volum e fraction]Ordered By: Oscar Poe on 12-18-2022 Hematocrit (Bld) [Volume fraction] 36.2 % 34.0-46.4 [facility] Hemoglobin [Mass/volume] in BloodOrdered By: Oscar Poe on 12-18-2022 Hemoglobin (Bld) [Mass/Vol] 11.9 g/dL 11.8-15.4 [facility] Leukocytes [#/volume] correc osmel for nucleated erythrocytes in Blood by Automated counOrdered By: Oscar Poe on 12-18-2022 WBC corrected for nucl RBC Auto (Bld) [#/Vol] 10.3 10*3/uL 3.8-11.6 [facility] Lipase [Enzymatic activity/v olume] in Serum or PlasmaOrdered By: Ocsar Poe on 12-18-2022 Lipase [Catalytic activity/Vol] 29.0 U/L 11.0-82.0 [facility] Lymphocytes Auto (Bld) [#/Vo l]Ordered By: Oscar Poe on 12-18-2022 Lymphocytes (Bld) [#/Vol] 2.2 10*3/uL 1.00-4.8 [facility] Lymphocytes/100 WBC Auto (Bl d)Ordered By: Oscar Poe on 12-18-2022 Lymphocytes/100 WBC (Bld) 21.8 % . [facility] MCH Auto (RBC) [Entitic mass ]Ordered By: Oscar Poe on 12-18-2022 MCH (RBC) [Entitic mass] 26.9 pg 24.7-34.3 [facility] MCHC Auto (RBC) [Mass/Vol]Or dered By: Oscar Poe on 12-18-2022 MCHC (RBC) [Mass/Vol] 32.8 g/dL 32.0-35.0 [facility] MCV Auto (RBC) [Entitic vol] Ordered By: Oscar Poe on 12-18-2022 MCV (RBC) [Entitic vol] 82.1 fL 80-100 [facility] Monocyte distribution width [Entitic volume] in Blood by AutomatedOrdered By: Oscar Poe on 12-18-2022 Monocyte distribution width Auto (Bld) [Entitic vol] 22.19 % 0.00-20.00 [facility] Comment on above: For adults in ED, MD W > 20.0 may be associated with a higher risk of sepsis during the first 12 hrs of hospital admission Monocytes Auto (Bld) [#/Vol] Ordered By: Oscar Poe on 12-18-2022 Monocytes (Bld) [#/Vol] 0.8 10*3/uL 0.0-0.8 [facility] Monocytes/100 WBC Auto (Bld) Ordered By: Oscar Poe on 12-18-2022 Monocytes/100 WBC (Bld) 7.4 % . [facility] Neutrophils Auto (Bld) [#/Vo l]Ordered By: Oscar Poe on 12-18-2022 Neutrophils (Bld) [#/Vol] 7.2 10*3/uL 1.8-7.7 [facility] Neutrophils/100 WBC Auto (Bl d)Ordered By: Oscar Poe on 12-18-2022 Neutrophils/100 WBC (Bld) 69.9 % . [facility] No Panel InformationOrdered By: Oscar Poe on 12-18-2022 Estimated GFR (CKD-EPI) > 60.0 mL/Min [facility] Creatinine Clearance (Chem 98.76 [facility] Nucleated erythrocytes [Pres ence] in Blood by Automated countOrdered By: Oscar Poe on 12-18-2022 Nucleated RBC Auto Ql (Bld) 0.1 /100{WBC} 0-0.5 [facility] Platelet mean volume Auto (B ld) [Entitic vol]Ordered By: Oscar Poe on 12-18-2022 Platelet mean volume (Bld) [Entitic vol] 8.1 fL 6.3-10.7 [facility] Platelets Auto (Bld) [#/Vol] Ordered By: Oscar Poe on 12-18-2022 Platelets (Bld) [#/Vol] 223 10*3/uL 150-450 [facility] Potassium [Moles/volume] in Serum or PlasmaOrdered By: Oscar Poe on 12-18-2022 Potassium [Moles/Vol] 3.5 mmol/L 3.5-5.1 [facility] RBC Auto (Bld) [#/Vol]Ordere d By: Oscar Poe on 12-18-2022 RBC (Bld) [#/Vol] 4.42 10*6/uL 3.60-5.00 [facility] Serum or plasma anion gap de terminationOrdered By: Oscar Poe on 12-18-2022 Anion gap [Moles/Vol] 14.5 mmol/L 6.0-15.0 [facility] Sodium [Moles/volume] in Ser um or PlasmaOrdered By: Oscar Poe on 12-18-2022 Sodium [Moles/Vol] 136 mmol/L 136-145 [facility] Urea nitrogen [Mass/volume] in Serum or PlasmaOrdered By: Oscar Poe on 12-18-2022 Urea nitrogen [Mass/Vol] 21 mg/dL 7-25 [facility] WBC Auto (Bld) [#/Vol]Ordere d By: Oscar Poe on 12-18-2022 WBC (Bld) [#/Vol] 10.3 10*3/uL 3.8-11.6 [facility] PRBC LEUKOREDUCEDon 07-14-19 ABO and Rh group Nom (Bld) Cross Match Result Compatible Unit Blood Type A Pos Unit Number [id number] Status Information Released Specimen Exp Date Product ID Red Blood Cells Product Code [id number] Cross Match Result Compatible Unit Blood Type A Pos Unit Number [id number] Status Information Transfused Product ID Red Blood Cells Product Code [id number] Normal [facility] Comment on above: Performed By: #### R UBIGG #### [facility] [address] [place] [address] Dr. Juan Antonio Ibarra CBC AUTO DIFFon 07-07-2022 BASO # 0.0 103/ul Normal 0.0-0.1 [facility] Comment on above: Performed By: #### A 1C #### [facility] [address] [place] [address] Dr. Juan Antonio Ibarra Basophils/100 WBC (Bld) 0.3 % Normal 0.2-2.0 [facility] Comment on above: Performed By: #### A 1C #### [facility] [address] [place] [address] Dr. Juan Antonio Ibarra EO # 0.1 103/ul Normal 0.0-0.7 [facility] Comment on above: Performed By: #### A 1C #### [facility] [address] [place] [address] Dr. Juan Antonio Ibarra Eosinophils/100 WBC (Bld) 0.9 % Normal 0.9-7.0 [facility] Comment on above: Performed By: #### A 1C #### [facility] [address] [place] [address] Dr. Juan Antonio Ibarra Erythrocyte distribution width (RBC) [Ratio] 14.5 % Normal 11.0-15.0 [facility] Comment on above: Performed By: #### A 1C #### [facility] [address] [place] [address] Dr. Juan Antonio Ibarra Hematocrit (Bld) [Volume fraction] 22.5 % Critically low 36.0-48.0 [facility] Comment on above: Performed By: #### A 1C #### [facility] [address] [place] [address] Dr. Juan Antonio Ibarra Hemoglobin (Bld) [Mass/Vol] 7.9 g/dL Critically low 12.0-16.0 [facility] Comment on above: Performed By: #### A 1C #### [facility] [address] [place] [address] Dr. Juan Antonio Ibarra IG # 0.10 10e3/ul Critically high 0.00-0.03 [facility] Comment on above: Performed By: #### A 1C #### [facility] [address] [place] [address] Dr. Juan Antonio Ibarra IG % 0.9 % Critically high 0.0-0.5 [facility] Comment on above: Performed By: #### A 1C #### [facility] [address] [place] [address] Dr. Juan Antonio Ibarra LYMPH # 1.6 103/ul Normal 1.2-3.8 [facility] Comment on above: Performed By: #### A 1C #### [facility] [address] [place] [address] Dr. Juan Antonio Ibarra Lymphocytes/100 WBC (Bld) 14.0 % Critically low 20.5-60.0 [facility] Comment on above: Performed By: #### A 1C #### [facility] [address] [place] [address] Dr. Juan Antonio Ibarra MANUAL DIFF REQ NO Normal [facility] Comment on above: Performed By: #### A 1C #### [facility] [address] [place] [address] Dr. Juan Antonio Ibarra MCH (RBC) [Entitic mass] 26.4 pg Critically low 26.7-34.0 [facility] Comment on above: Performed By: #### A 1C #### [facility] [address] [place] [address] Dr. Juan Antonio Ibarra MCHC (RBC) [Mass/Vol] 35.1 g/dL Normal 29.9-35.2 [facility] Comment on above: Performed By: #### A 1C #### [facility] [address] [place] [address] Dr. Juan Antonio Ibarra MCV (RBC) [Entitic vol] 75.3 fL Critically low 81.0-99.0 [facility] Comment on above: Performed By: #### A 1C #### [facility] [address] [place] [address] Dr. Juan Antonio Ibarra MONO # 0.7 103/ul Normal 0.3-0.8 [facility] Comment on above: Performed By: #### A 1C #### [facility] [address] [place] [address] Dr. Juan Antonio Ibarra Monocytes/100 WBC (Bld) 6.2 % Normal 1.7-12.0 [facility] Comment on above: Performed By: #### A 1C #### [facility] [address] [place] [address] Dr. Juan Antonio Ibarra NEUT # 9.1 103/ul Critically high 1.4-6.5 [facility] Comment on above: Performed By: #### A 1C #### [facility] [address] [place] [address] Dr. Juan Antonio Ibarra Neutrophils/100 WBC (Bld) 77.7 % Critically high 43.0-75.0 [facility] Comment on above: Performed By: #### A 1C #### [facility] [address] [place] [address] Dr. Juan Antonio Ibarra Platelet mean volume (Bld) [Entitic vol] 9.2 fL Critically low 9.5-13.5 [facility] Comment on above: Performed By: #### A 1C #### [facility] [address] [place] [address] Dr. Juan Antonio Ibarra PLT 143 103/ul Critically low 150-450 [facility] Comment on above: Performed By: #### A 1C #### [facility] [address] [place] [address] Dr. Juan Antonio Ibrara RBC 2.99 106/ul Critically low 4.20-5.40 [facility] Comment on above: Performed By: #### A 1C #### [facility] [address] [place] [address] Dr. Juan Antonio Ibarra WBC 11.7 103/ul Critically high 4.0-11.0 [facility] Comment on above: Performed By: #### A 1C #### [facility] [address] [place] [address] Dr. Juan Antonio Ibarra CBC AUTO DIFFon 07-06-2022 BASO # 0.0 103/ul Normal 0.0-0.1 [facility] Comment on above: Performed By: #### A 1C #### [facility] [address] [place] [address] Dr. Juan Antonio Ibarra Basophils/100 WBC (Bld) 0.3 % Normal 0.2-2.0 [facility] Comment on above: Performed By: #### A 1C #### [facility] [address] [place] [address] Dr. Juan Antonio Ibarra EO # 0.1 103/ul Normal 0.0-0.7 [facility] Comment on above: Performed By: #### A 1C #### [facility] [address] [place] [address] Dr. Juan Antonio Ibarra Eosinophils/100 WBC (Bld) 0.8 % Critically low 0.9-7.0 [facility] Comment on above: Performed By: #### A 1C #### [facility] [address] [place] [address] Dr. Juan Antonio Ibarra Erythrocyte distribution width (RBC) [Ratio] 14.3 % Normal 11.0-15.0 [facility] Comment on above: Performed By: #### A 1C #### [facility] [address] [place] [address] Dr. Juan Antonio Ibarra Hematocrit (Bld) [Volume fraction] 23.0 % Critically low 36.0-48.0 [facility] Comment on above: Performed By: #### A 1C #### [facility] [address] [place] [address] Dr. Juan Antonio Ibarra Hemoglobin (Bld) [Mass/Vol] 7.5 g/dL Critically low 12.0-16.0 [facility] Comment on above: Performed By: #### A 1C #### [facility] [address] [place] [address] Dr. Juan Antonio Ibarra IG # 0.07 10e3/ul Critically high 0.00-0.03 [facility] Comment on above: Performed By: #### A 1C #### [facility] [address] [place] [address] Dr. Juan Antonio Ibarra IG % 0.6 % Critically high 0.0-0.5 [facility] Comment on above: Performed By: #### A 1C #### [facility] [address] [place] [address] Dr. Juan Antonio Ibarra LYMPH # 2.1 103/ul Normal 1.2-3.8 [facility] Comment on above: Performed By: #### A 1C #### [facility] [address] [place] [address] Dr. Juan Antonio Ibarra Lymphocytes/100 WBC (Bld) 18.8 % Critically low 20.5-60.0 [facility] Comment on above: Performed By: #### A 1C #### [facility] [address] [place] [address] Dr. Juan Antonio Ibarra MANUAL DIFF REQ NO Normal [facility] Comment on above: Performed By: #### A 1C #### [facility] [address] [place] [address] Dr. Juan Antonio Ibarra MCH (RBC) [Entitic mass] 26.0 pg Critically low 26.7-34.0 [facility] Comment on above: Performed By: #### A 1C #### [facility] [address] [place] [address] Dr. Juan Antonio Ibarra MCHC (RBC) [Mass/Vol] 32.6 g/dL Normal 29.9-35.2 [facility] Comment on above: Performed By: #### A 1C #### [facility] [address] [place] [address] Dr. Juan Antonio Ibarra MCV (RBC) [Entitic vol] 79.9 fL Critically low 81.0-99.0 [facility] Comment on above: Performed By: #### A 1C #### [facility] [address] [place] [address] Dr. Juan Antonio Ibarra MONO # 0.7 103/ul Normal 0.3-0.8 [facility] Comment on above: Performed By: #### A 1C #### [facility] [address] [place] [address] Dr. Juan Antonio Ibarra Monocytes/100 WBC (Bld) 6.6 % Normal 1.7-12.0 [facility] Comment on above: Performed By: #### A 1C #### [facility] [address] [place] [address] Dr. Juan Antonio Ibarra NEUT # 8.2 103/ul Critically high 1.4-6.5 [facility] Comment on above: Performed By: #### A 1C #### [facility] [address] [place] [address] Dr. Juan Antonio Ibarra Neutrophils/100 WBC (Bld) 72.9 % Normal 43.0-75.0 [facility] Comment on above: Performed By: #### A 1C #### [facility] [address] [place] [address] Dr. Juan Antonio Ibarra Platelet mean volume (Bld) [Entitic vol] 9.8 fL Normal 9.5-13.5 [facility] Comment on above: Performed By: #### A 1C #### [facility] [address] [place] [address] Dr. Juan Antonio Ibarra PLT 151 103/ul Normal 150-450 [facility] Comment on above: Performed By: #### A 1C #### [facility] [address] [place] [address] Dr. Juan Antonio Ibarra RBC 2.88 106/ul Critically low 4.20-5.40 [facility] Comment on above: Performed By: #### A 1C #### [facility] [address] [place] [address] Dr. Juan Antonio Ibarra WBC 11.3 103/ul Critically high 4.0-11.0 [facility] Comment on above: Performed By: #### A 1C #### [facility] [address] [place] [address] Dr. Juan Antonio Ibarra CBC AUTO DIFFon 07-05-2022 BASO # 0.0 103/ul Normal 0.0-0.1 [facility] Comment on above: Performed By: #### R PRQ #### [facility] [address] [place] [address] Dr. Juan Antonio Ibarra Basophils/100 WBC (Bld) 0.2 % Normal 0.2-2.0 [facility] Comment on above: Performed By: #### R PRQ #### [facility] [address] [place] [address] Dr. Juan Antonio Ibarra EO # 0.0 103/ul Normal 0.0-0.7 [facility] Comment on above: Performed By: #### R PRQ #### [facility] [address] [address] [address] Juan Antonio Ibarra Eosinophils/100 WBC (Bld) 0.4 % Critically low 0.9-7.0 [facility] Comment on above: Performed By: #### R PRQ #### [facility] [address] [place] [address] Dr. Juan Antonio Ibarra Erythrocyte distribution width (RBC) [Ratio] 14.2 % Normal 11.0-15.0 [facility] Comment on above: Performed By: #### R PRQ #### [facility] [address] [place] [address] Dr. Juan Antonio Ibarra Hematocrit (Bld) [Volume fraction] 31.0 % Critically low 36.0-48.0 [facility] Comment on above: Performed By: #### R PRQ #### [facility] [address] [place] [address] Dr. Juan Antonio Ibarra Hemoglobin (Bld) [Mass/Vol] 10.1 g/dL Critically low 12.0-16.0 [facility] Comment on above: Performed By: #### R PRQ #### [facility] [address] [place] [address] Dr. Juan Antonio Ibarra IG # 0.10 10e3/ul Critically high 0.00-0.03 [facility] Comment on above: Performed By: #### R PRQ #### [facility] [address] [place] [address] Dr. Juan Antonio Ibarra IG % 1.1 % Critically high 0.0-0.5 [facility] Comment on above: Performed By: #### R PRQ #### [facility] [address] [place] [address] Dr. Juan Antonio Ibarra LYMPH # 1.6 103/ul Normal 1.2-3.8 [facility] Comment on above: Performed By: #### R PRQ #### [facility] [address] [place] [address] Dr. Juan Antonio Ibarra Lymphocytes/100 WBC (Bld) 17.5 % Critically low 20.5-60.0 [facility] Comment on above: Performed By: #### R PRQ #### [facility] [address] [place] [address] Dr. Juan Antonio Ibarra MANUAL DIFF REQ NO Normal [facility] Comment on above: Performed By: #### R PRQ #### [facility] [address] [place] [address] Dr. Juan Antonio Ibarra MCH (RBC) [Entitic mass] 25.8 pg Critically low 26.7-34.0 [facility] Comment on above: Performed By: #### R PRQ #### [facility] [address] [place] [address] Dr. Juan Antonio Ibarra MCHC (RBC) [Mass/Vol] 32.6 g/dL Normal 29.9-35.2 [facility] Comment on above: Performed By: #### R PRQ #### [facility] [address] [place] [address] Dr. Juan Antonio Ibarra MCV (RBC) [Entitic vol] 79.3 fL Critically low 81.0-99.0 [facility] Comment on above: Performed By: #### R PRQ #### [facility] [address] [place] [address] Dr. Juan Antonio Ibarra MONO # 0.7 103/ul Normal 0.3-0.8 [facility] Comment on above: Performed By: #### R PRQ #### [facility] [address] [place] [address] Dr. Juan Antonio Ibarra Monocytes/100 WBC (Bld) 8.1 % Normal 1.7-12.0 [facility] Comment on above: Performed By: #### R PRQ #### [facility] [address] [place] [address] Dr. Juan Antonio Ibarra NEUT # 6.7 103/ul Critically high 1.4-6.5 [facility] Comment on above: Performed By: #### R PRQ #### [facility] [address] [place] [address] Dr. Juan Antonio Ibarra Neutrophils/100 WBC (Bld) 72.7 % Normal 43.0-75.0 [facility] Comment on above: Performed By: #### R PRQ #### [facility] [address] [place] [address] Dr. Juan Antonio Ibarra Platelet mean volume (Bld) [Entitic vol] 10.1 fL Normal 9.5-13.5 [facility] Comment on above: Performed By: #### R PRQ #### [facility] [address] [place] [address] Dr. Juan Antonio Ibarra PLT 202 103/ul Normal 150-450 [facility] Comment on above: Performed By: #### R PRQ #### [facility] [address] [place] [address] Dr. Juan Antonio Ibarra RBC 3.91 106/ul Critically low 4.20-5.40 [facility] Comment on above: Performed By: #### R PRQ #### [facility] [address] [place] [address] Dr. Juan Antonio Ibarra WBC 9.2 103/ul Normal 4.0-11.0 [facility] Comment on above: Performed By: #### R PRQ #### [facility] [address] [place] [address] Dr. Juan Antonio Ibarra DRUG SCREEN RAPID (URINE)on 07-05-2022 AMP Negative Normal NEGATIVE [facility] Comment on above: Performed By: #### A 1C #### [facility] [address] [place] [address] Dr. Juan Antonio Ibarra BAR Negative Normal NEGATIVE [facility] Comment on above: Performed By: #### A 1C #### [facility] [address] [place] [address] Dr. Juan Antonio Ibarra BUP Negative Normal NEGATIVE [facility] Comment on above: Performed By: #### A 1C #### [facility] [address] [place] [address] Dr. Juan Antonio Ibarra BZO Negative Normal NEGATIVE [facility] Comment on above: Performed By: #### A 1C #### [facility] [address] [place] [address] Dr. Juan Antonio Ibarra PARAM Negative Normal NEGATIVE [facility] Comment on above: Performed By: #### A 1C #### [facility] [address] [place] [address] Dr. Juan Antonio Ibarra CUT-OFFS SEE BELOW Normal [facility] Comment on above: Result Comment: [...] ng/mL Performed By: #### A 1C #### [facility] [address] [place] [address] Dr. Juan Antonio Ibarra DRUG CUT HEADER DRUG CLASS TEST SYST EM CUT-OFF CONCENTRATIONS ARE FOLLOWS: Normal [facility] Comment on above: Performed By: #### A 1C #### [facility] [address] [place] [address] Dr. Juan Antonio Ibarra mAMP Negative Normal NEGATIVE [facility] Comment on above: Performed By: #### A 1C #### [facility] [address] [place] [address] Dr. Juan Antonio Ibarra MTD Negative Normal NEGATIVE [facility] Comment on above: Performed By: #### A 1C #### [facility] [address] [place] [address] Dr. Juan Antonio Ibarra OPI Negative Normal NEGATIVE [facility] Comment on above: Performed By: #### A 1C #### [facility] [address] [place] [address] Dr. Juan Antonio Ibarra OXY Negative Normal NEGATIVE [facility] Comment on above: Performed By: #### A 1C #### [facility] [address] [place] [address] Dr. Juan Antonio Ibarra PCP Negative Normal NEGATIVE [facility] Comment on above: Performed By: #### A 1C #### [facility] [address] [address] [address] Juan Antonio Ibarra PPX Negative Normal NEGATIVE [facility] Comment on above: Performed By: #### A 1C #### [facility] [address] [address] [address] Juan Antonio Ibarra TCA Negative Normal NEGATIVE [facility] Comment on above: Performed By: #### A 1C #### [facility] [address] [address] [address] Juan Antonio Ibarra THC Negative Normal NEGATIVE [facility] Comment on above: Performed By: #### A 1C #### [facility] [address] [address] [address] Juan Antonio Ibarra TYPE AND SCREENon 07-05-2022 TYPE AND SCREEN Negative Normal [facility] Comment on above: Performed By: #### T NS #### [facility] [address] [address] [address] Juan Antonio Ibarra US PREG BIOPHY [...] by: FELECIA GOLDMAN Date: 2022-06-28 15:29 Normal [facility] US PREG BIOPHY W NON [...] FELECIA GOLDMAN Date: 2022-06-21 17:20 Normal [facility] US PREG GROWTHon 06-21-2022 US PREG [...] GAMALIEL CRUMP Date: 2022-06-21 13:37 Normal [facility] CULTURE URINEon 06-16-2022 CULTURE URINE Culture Observations : LIGHT GROWTH OF MIXED GENITAL ALONSO. NO POTENTIAL PATHOGENS SEEN. Normal [facility] Comment on above: Performed By: #### U RCX #### [facility] [address] [place] [address] Dr. Juan Antonio Ibarra UA (CLEAN/CATCH) CRYSTAL INSPECTOR/MICRO I F IND.on 06-16-2022 Bilirubin Ql (U) Negative Normal NEGATIVE [facility] Comment on above: Performed By: #### U MICRO, UACSIND #### [facility] [address] [place] [address] Dr. Juan Antonio Ibarra Clarity (U) CLEAR Normal CLEAR [facility] Comment on above: Performed By: #### U MICRO, UACSIND #### [facility] [address] [address] [address] Juan Antonio Ibarra Color (U) LT. YELLOW Normal YELLOW [facility] Comment on above: Performed By: #### U MICRO, UACSIND #### [facility] [address] [address] [address] Juan Antonio Ibarra Glucose Ql (U) Negative Normal NEGATIVE [facility] Comment on above: Performed By: #### U MICRO, UACSIND #### [facility] [address] [address] [address] Juan Antonio Ibarra Hemoglobin Ql (U) Negative Normal NEGATIVE [facility] Comment on above: Performed By: #### U MICRO, UACSIND #### [facility] [address] [place] [address] Dr. Juan Antonio Ibarra Ketones Ql (U) Negative Normal NEGATIVE [facility] Comment on above: Performed By: #### U MICRO, UACSIND #### [facility] [address] [place] [address] Dr. Juan Antonio Ibarra LEUKOCYTES MODERATE Abnormal NEGATIVE [facility] Comment on above: Performed By: #### U MICRO, UACSIND #### [facility] [address] [place] [address] Dr. Juan Antonio Ibarra Nitrite Ql (U) Negative Normal NEGATIVE [facility] Comment on above: Performed By: #### U MICRO, UACSIND #### [facility] [address] [place] [address] Dr. Juan Antonio Ibarra pH (U) 6.0 [pH] Normal 5-9 [facility] Comment on above: Performed By: #### U MICRO, UACSIND #### [facility] [address] [place] [address] Dr. Juan Antonio Ibarra SPEC GRAVITY 1.020 Normal 1.005-<=1. 025 [facility] Comment on above: Performed By: #### U MICRO, UACSIND #### [facility] [address] [place] [address] Dr. Juan Antonio Ibarra UA PROTEIN Negative Normal NEGATIVE/ TRACE [facility] Comment on above: Performed By: #### U MICRO, UACSIND #### [facility] [address] [address] [address] Juan Antonio Ibarra UR MICRO IND INDICATED Normal [facility] Comment on above: Performed By: #### U MICRO, UACSIND #### [facility] [address] [address] [address] Juan Antonio Ibarra Urobilinogen Qn (U) 1.0 {Pamela'U}/dL Normal 0.2 - 1. 0 [facility] Comment on above: Performed By: #### U MICRO, UACSIND #### [facility] [address] [address] [address] Juan Antonio Ibarra URINE MICROSCOPIC ONLYon BACTERIA SMALL Abnormal NONE SEEN [facility] Comment on above: Performed By: #### U MICRO, UACSIND #### [facility] [address] [place] [address] Dr. Juan Antonio Ibarra Bacteria identified Cx Nom (U) INDICATED Normal [facility] Comment on above: Performed By: #### U MICRO, UACSIND #### [facility] [address] [place] [address] Dr. Juan Antonio Ibarra CAST NONE SEEN Normal NONE SEEN [facility] Comment on above: Performed By: #### U MICRO, UACSIND #### [facility] [address] [address] [address] Juan Antonio Ibarra Crystals LM Nom (Urine sed) NONE SEEN Normal NONE SEEN [facility] Comment on above: Performed By: #### U MICRO, UACSIND #### [facility] [address] [address] [address] Juan Antonio Ibarra Epithelial cells LM Ql (Urine sed) RARE Normal NONE SEEN /RARE [facility] Comment on above: Performed By: #### U MICRO, UACSIND #### [facility] [address] [place] [address] Dr. Juan Antonio Ibarra MUCOUS NONE SEEN Normal NONE SEEN [facility] Comment on above: Performed By: #### U MICRO, UACSIND #### [facility] [address] [place] [address] Dr. Juan Antonio Ibarra RBC NONE SEEN Abnormal 0-2 [facility] Comment on above: Performed By: #### U MICRO, UACSIND #### [facility] [address] [address] [address] Juan Antonio Iabrra WBC 2-5 Abnormal NONE SEEN [facility] Comment on above: Performed By: #### U MICRO, UACSIND #### [facility] [address] [address] [address] Juan Antonio Ibarra GROUP B STREP CULTUREon 05-18 S. agalactiae Ag Ql (Unsp spec) Culture Observations: NEGATIVE FOR GROUP B STREPTOCOCCUS. Normal [facility] Comment on above: Performed By: #### G BSCX #### [facility] [address] [address] [address] Juan Antonio Ibarra US PREG BIOPHY [...] by: GAMALIEL CRUMP Date: 2022-06-14 16:10 Normal [facility] US PREG BIOPHY W NON [...] by: FELECIA GOLDMAN Date: 2022-06-07 16:42 Normal [facility] US PREG BIOPHY W NON [...] by: FELECIA GOLDMAN Date: 2022-06-04 17:11 Normal [facility] US PREG BIOPHY W NON [...] by: FELECIA GOLDMAN Date: 2022-06-04 16:23 Normal [facility] US PREG BIOPHY W NON [...] by: GAMALIEL CRUMP Date: 2022-05-31 18:39 Normal [facility] US PREG BIOPHY W NON [...] FELECIA GOLDMAN Date: 2022-05-24 16:34 Normal [facility] US PREG GROWTHon 05-24-2022 US PREG [...] FELECIA GOLDMAN Date: 2022-05-24 16:33 Normal [facility] GLUCOSE - 1HRon 04-04-2022 Glucose [Mass/Vol] 101 mg/dL Normal 74-106 [facility] Comment on above: Performed By: #### R PRQ #### [facility] [address] [place] [address] Dr. Juan Antonio Ibrara HEMOGRAM AND PLATELon 2021 Hematocrit (Bld) [Volume fraction] 33.5 % Critically low 36.0-48.0 [facility] Comment on above: Performed By: #### A 1C #### [facility] [address] [place] [address] Dr. Juan Antonio Ibarra Hemoglobin (Bld) [Mass/Vol] 10.7 g/dL Critically low 12.0-16.0 [facility] Comment on above: Performed By: #### A 1C #### [facility] [address] [place] [address] Dr. Juan Antonio Ibarra MCH (RBC) [Entitic mass] 29.3 pg Normal 26.7-34.0 [facility] Comment on above: Performed By: #### A 1C #### [facility] [address] [place] [address] Dr. Juan Antonio Ibarra MCHC (RBC) [Mass/Vol] 31.9 g/dL Normal 29.9-35.2 [facility] Comment on above: Performed By: #### A 1C #### [facility] [address] [place] [address] Dr. Juan Antonio Ibarra MCV (RBC) [Entitic vol] 91.8 fL Normal 81.0-99.0 [facility] Comment on above: Performed By: #### A 1C #### [facility] [address] [place] [address] Dr. Juan Antonio Ibarra PLT 179 103/ul Normal 150-450 [facility] Comment on above: Performed By: #### A 1C #### [facility] [address] [place] [address] Dr. Juan Antonio Ibarra RBC 3.65 106/ul Critically low 4.20-5.40 [facility] Comment on above: Performed By: #### A 1C #### [facility] [address] [place] [address] Dr. Juan Antonio Ibarra WBC 9.9 103/ul Normal 4.0-11.0 [facility] Comment on above: Performed By: #### A 1C #### [facility] [address] [place] [address] Dr. Juan Antonio Ibarra US PREG REEVAL [...] by: FELECIA GOLDMAN Date: 2022-03-20 20:55 Normal [facility] US PREG ANATOMY SINGLEon US [...] by: FELECIA GOLDMAN Date: 2022-02-22 16:46 Normal [facility] Coding Summaryon 02-14-2022 Coding Summary HTMLBase 64 LbhmxiqwLBr1wEd+PGhlYWQ+PE 8QEIXsQ07mzTWcqU6XN8yOCI1C AHKPQJIJEM4FAK0xdSU1XDujX9 VybiAv RakbtEFuJT75RCw0XNW3kQcxLH phvL0kbMRpX1b1NrQgTQ96oT04 HNqcYXQmKoR8BpJdifxdaYZy Q5uiIdDpxOWnAew+PHRhYmxlIH gfTABaJHydZILeSvQwxLgtPS9d Qy9sZUCsMZLktJwzjYFzPiKm s3foNJFrDSreBV0vlIafD7GvrM L4GGDvf3s3Im80oCO+PHRkIHN0 pRddQFkku239YeThi6cjOVL3 rWJjPVycZAX6O56sx6N0CJCbBL RnOZO3eRW5oC6wxLjwbzccB4Af oPHwZbG0RNH7jAVkvN6dlUpk emowjU4fMjr+N00PIU7CCNKYHG 7HYan2Z1GpDxhwjRT+UH74RJQh YV83hKPicPDxc6btsUq4YgGy VJUnHJJ4cUwhCSyri5VtBNNzG3 3mzIPug0S4MGZuxStrmZKcMmJp zWE9cU5rXLgzvplht4lqynvd Rardc1qudz05uI11B48tFHkiBB JrGVS6VDWgOVSicXbuza2ohD4j Ii8+JXsui3lal5iolLh8PyIu KWCutaCekZyhPSF3v0JlUt20Q8 WkoJwli5VsStx7lt18nNKxz7T9 cZN3YZuiMHHfhU3lFKuxZiP5 PFKdEnLibR16bMFkKApcIz2hvU odqJmfZG1kTOIwqcapJCXtbD2f HMWlrYEefMndSG2bUNZggtuk q239JsYxIZZ2LWHcyIEuP0HkyU 7eKwZnZSIjAGJhE4HpkFXkDBpu R457JQdzXpG9VLLndiCdS3Zq CJQbsGyzIeU6v3E7Nj7Iq0Phib wxOSM8CXrhIOE8SuUmNhDtJdS0 Q9FvSqs2XAInxJlmPJ5fZ6Zr XTLggcohadylgIB0EUEoHWVbaF 18eEAaIUxtQy7le3R4h480FUEg SDEiwR56Lx2taHbcTXYhlUFI xK2mfcsgb1bddxucZdOnUVHfCR o8POk6LNVumPfqNtLtKZT4GwS9 CGK8yGWeaP9vkPvxbyfnpA2p Oyc+P51fpJ4tREM4ZJO4jnrdJP SwnoJsBP61JQ54H6EbXzmflKPb bGU+YFLoclHvgYcgIR9wLvIr l3vnq4LkIZvjM5AtCBTdVUvoQb w5PGCbUZF2nRM6sF9cRNGuXVex o3O0aGP5P3PkmjZpvp4oy6hd ECGsUTsmU57igOBmq2X5MKHhlU Y8MDOciUkfBvOxfU23Qsh+PGNv cZcjx7FlRwufk3xvf0xkwXz3 ThRdUYCtmnSpdTvxAQO0a2DlPz 22L42pDXoaWPVwKEPdKSGoORAr gFnsaz0bqU7kXz8+PGNvbCB3 kUR2nF8iSKGvFmX7RVbdD265Ud MpeCWzQgvai6gyp5aaaCi8UhCe XMUwrgCwxCosHRV6f7PpKq91 D27lKDoaKHWuPGYxHJDvYTMrqB zgye7kjR1gBe5+FZ0ie8nivi85 qM80mFU+ZFHeELY8nAlnIUnf FJDzpC9dEAzaMaD0TBEnJqSntH 02bBQpUFtfFa9xtLeleGlhNF4a HMHzyudcx940QlSda9xyYRXd nSKwZSgdOHX5A92ct9S4STHrMD MnPSN3mTR1dE8vlClzfdrcnFLn jDgxjvPdyInoIVppFHugC160 IHRvcDsnPlBhdGllbnQgTmFtZT y6S3CqAio2NIEmfTuoWL0anFVl PRfxKg3mhUbyqVmwOX9vUHDc iswhb516HbNxi6fiTFVumSHwKF fbGQI9X65kf6Y9BZJqYNXvJCB8 pUH8tW2fnPtvwzrwoOYejRjv kjUnoSilUOxdDHgcF623INSoxD ivPwLzjxQkBKJdsJB1PI65SG15 bJHpw0S0oAS4U7LhCBAzccjf qzqryFC3BVBhPGTmbE68Vx6nuX upQj7bJQWwVQB5INEqfLReL8Vb pF2fXxWoDBBzYUEzG7IliSGj EZduI856ZCinFrZ5RDDecaSoP2 JqRHRerLtkDnL5g8I5Mg5BN6W5 FP36QN49vQXrw4S7uXB0J9Qu IZWclculwmdkxVK3RXKiUDVuyU 64Jp3ckVqdBw6pGERsNVB0KWFw rHHjA2KhsB2aFyEnBITeIUOj Y8AcsPOqGYzcG373IQnqSnT8RE UjnnKdR9GoSBWqjHalKfT6c4C8 Yz7YJSw8NR70CB39zSVse0C3 jSH4K9DfBIUpyaocrhvngWA7NQ NnULRfdN17Wu6xnAjxEp3sQOJk RGD3ZRHnlOKlS2UnaM8mKoGh SMGpKFLvA2RpcMHcNAjkA037AW qrQbM4HJWrcaHqN6QuOTDwiShk DqE1y5E4Ao6PDTSrSM16HML4 kQW8IA10GO16P3ZlAduzhSUbsE U+PHRhYmxlIHdpZHRoPScxMDAl SvGapJpmCM0lNx6sQTCgQWNh pHpanMFmWeZsl7gvUDUtTOthBK 8fzBjfC1YdcKX8PDLax1q9Uv35 R65dW4DwvYH+RZMkqNY5dXV3 mZ0xKlIiLhH1YNntH705WrMepR WuLvjxp1fug6yfwQv0XcP0LUAl bcRlqVwrXWX1j4HtOd34R62i IHdpZHRoPSIxNSUiIHZhbGlnbj 7lcR4zVc9+JYVpmIJ6yRQ3oC9g QkAqHbJ5ZFwoE847KsJnlVMp Dujbc6uho8egrUj3SbSlJXYvhf ZfvDbdKRO3v4ZgWs87C6DenAlo y5DhUau9oz46lVWjd1J0eCL7 Q6KpHXXztfygxWAbmDxeNV0sHV VgxcpuDIVecH6bFJIpS1n2BjLb LiL1FZrrA3EtgnK2YCXagAYb AGoyGES1R66oa9K0NHCvFNKrHZ G3hGK5cD5elVkppxaifSIgiHzi fqVjxHlxJWajZOwuJ556TCQa cDfxCWIvgA0rHYNsgLHloXwtAF 4wNTBpbjsnPlNURUlOLCBWSVJH MX7LEWWVOYP9Z0GeWbo3JWZq lImjUB9bjDPuTZksUu8lvFhmyV twXP8qCZCunmtvIIWzzC9qPQJy mGKkoGilQL0eKIDuadrwx845 CxVzKXN4EOByrONqP7QxnZ1kUk KqODTgZIXuT7LfsVPsYTefS159 HCngRaV3EMGkhlOkU5CaZVRd qKuzNqH6r7I4Qf3kUK8xTP4jPO bdXA96NP19kWGsy0T0gLZ9H5Yi CEJzjqpbzewsrMX1RWPtERBx kB50zQQbOKurRj5cy6T6z848QV IgOPBpcI18Zr8vjDaqOMZpcTGY wU7ubvkyn2qecjpwDhCkYESc NBl6OPe3SKSqzOpuEsBnBHL7Ly U0QFU5sLYqyI5poYcucverfA4r Oyc+WojmFLHpuwY7I8QdFyx9 FCDcjKcoSS0efJKuHVviFk7wrB vbrNvnMF3yFIRnqbcfQBBkoZ8x TYRyzFJyrIkqHJ5oKFSfdjlz g012MnOxEGH9NHLavRJbR9YykU 2tTyKkCEDnCMLnA1NstMZgBXsw F271MPbmHeL7FVLlrrTgC5Ua RCDrzLukLqO7i7U0Xm5HZX7JLT I6B9WeKaz2ZKYefCgnFN2xkYOm ALtwCo6fnIlnwRafQP0uVHSi yavoBVHexS8sZPDofOGdvJffBR 8sVVGqjmncd613MzCgHKB8SYYw xJMhO8PhlD2xGaWnPYMgGBEw E2ByhTMsPHseH991JStaIdQ4TJ VwlhZrC1XhNMUhlGsuLiW2b0K8 Nh8MRQutcLQ+RL49lr22U4Eq ZwyxNoo7RYCfPYM2bXN6jG7tIO QzABcma1D9uTH9Z3WxmsTzrb3m l2wjGCPmVHebF94ukFHeg2H3 JTPdzQZ0ZHUymZawJkAtoW39Kt c+EUYfnGlkt5WhLogjf6rrq1dy vFc9FkMeBQPsofPxkOvmKKK7 w3VzGl43I30hHTklDEPjCUIiLY WoIIBkuGzlil9zjK1xKt8+PGNv lRS3kNQ7qJ6fWgWpZqI8UPyf P155PnDnfTThByhbx1wis8aovG i2BaRlLZNbubWvhAibPWH6k6Az Ct96F2IsaKyyi4GrHam4cg77 yDItt3E9bSH8N2HiWYGqtlrmtB HbsWmpEF7wHZTlxpbvSCPkkH6g DNHdZ3j8VdYvEhJ7NSatE9Eo htM6FLNciDIkANSgyWGPaP7dou bjl0ugckjgEuOkTCYsWOe6XIq4 YJLsyHtaDuAmEMO8JfI3BOD6 kZHnmS6hqBllkapgfI8cXjy+UG u8o4eifQJcCF6cyED6AH92WI98 cBEln8F2bEY8A9MxEJQsjkzh opaqfLL0JPKrLNIwsZ02Ut0ffR yqAc1tANAiTYD0HFJkgYOhV1Ci eQ0dZrYtNYAcAFIsI9WuqQGc KQnvW800VNtoIeX8NAJlhaLuE2 XqPZEusKeeJlS8k8W7Is3DUF80 YP16KL90jDDix0L3lGO3D6Mo PANgbuinizgumLN1HFAsQTLiaL 29Ra5weQyjQo6jBFWqZMT9USIp bBUoH1CkqA9uOiCoASCdRSYf R3WxsGQwMQipE226VSdtSgR0OY JzroEcP2LyTIUorClmAxD9a2Z5 Cq2HJs81QW56GE45qZVgh5Y4 yBP0O9LuVCWpfrxfsoiibFR0WB ZdKTZfaW32Le9vuMjiDj3dFMOi QAK0DDIvvTZzG5JvsY6lGeFk RAGyTVFmA7JwlAAaBGvlJ625RV kaGiT3LNNvszQqL5OkQXKppHes GsR4m6P3Of1REJkmcyk2Z9Bk PjwvdHI+HH96AOEwON84bVVdeW Hxg2risDr9WyOvELCcEJM1iYge OAgwo1JmOHAaB16epYKdw5J2 IGN (more content not included)... [facility] Coding Summary HTMLBase 64 KlybwztaOBe4sEl+PGhlYWQ+PE 9SVRQmH83dnYGpzU8IN3jECG5E KEXVKMJQVO0QTT6abDU7KIkmO9 VybiAv WrxrlPGqXO66YVc4ZGK6aIvrEA glpR6pkXDlG3m8LcStPW19jN50 DBttKSReAsZ1InXbhqhrrRHo H0boWvSzuRNtFlt+PHRhYmxlIH gvJUHvVPojVGCgSsHrsGphQU4e Dg0xYAAdBBAsiHeljQQxRoTp n2pkPNHkDQmsRL0qoHabT9JqoU S8BVAwr2s0Ww00dMW+PHRkIHN0 iVusYXfzi192IbDdk8veZGO7 hVJkQZjkXHZ8T18bh9J6NOIgRG EfOJC1rWY4dW7niVsozcgsV2Xm xPUwZvF2FYR7aIPsbZ2esMlc tcltjN1wBnh+C38TWH8IJDNRDI 0OXdq1M3EgDjytiQW+MK17NFVk QM57rLSdtEVec1romZt1DsVu PKCzOVQ7aQrdGIwax3LlHEPwF7 4nmCIau8V9BUBzcZntkNPnWiNd ePM0lM1qMDfgueweq6vztpls Kfcjm6uhsn25cL44M79qXJddQK HdDDU8AOIiCHUtkThtpq1kbS7p Ii8+HRlie2mit8pqtJh6BvQa EHTqjqOtqZckPOK8n0WyUz36X1 YftOacb2KxApw5wk80uHEsu6K5 pMQ5YAyzDVZxeA9dPWrlWlZ2 HJDgGcFbjD65iQHjFXisBj5qhB eeaMyqAE4kJDXetggvTDNfjN2s DVBxvEVlcKlfRV2uUECwpthq y075WiFnBSR8RVCnrIDtO3NuaX 9iJpCzFAGrDHQrK1GclFJgKAqa N813UYjvEhT4ALJwqkQkW0Ym ULRknSyhGuB5i4X1Jf7Ul2Fykk iwNJR1FArdBDI8LsGgZzLuMfR7 Q7PzFra0PIFagEnoOK5vY2Zp BXSvdlyruuvxgUH8AXXqYNHsqI 96fMAxSKahFj9yq1M9t406CHZv OMCclR32Sb1gjAqrYAHrdOFM hW8lsxtmy5bfmuxcYmZjQYZxRH c5NPq5QVXotCnbItPlIGW8JgY5 VHO9kOPbzN5zdBuzxerntN9w Oyc+U16ovI8ePCM0RYW8eijiDX IryzFrQX55ER14P8OeEzpvhZBu bGU+XIBwvoDeqEztSN8fBuQf x6nct6NzWRmaJ0EaCKChJLbpRc y5KIXpRGR5kEC6kT3wTINvLRyc h4E1qGP2G4GfenCnnm4gm3gd XQQhTGsnE59dfORkf0S1HRUzcE M5QMIwjWoxJtKaaO14Lit+PGNv zEzwu0BdHzigk6tcw8hkpLc8 RxDxOOTlsvVjvXijATM2q6AhYh 34W43jXJpjQWJjGAPyLVZcJOAr pPcjlo5jwZ6pGu9+PGNvbCB3 wPS3mR4lVAAmEkJ4TTzaT409Ih SuyDSnKqrzk8txl5glhWw8UcQx AOJwkkCahXkdWMS1g5PsDf17 Z79mWCuvBIHfNNLnBTBfLEWpvO zuhv9brS6sZt1+OR6of7bccq54 fP17xWN+YEYhSUG7qQwwTPts SAUouO3jTOrbXqP1HRLnOuSgpV 07wBMsNRfeHi4xkZquoTbbBE3k LXFitxjuf353PkJqe4bdPHLu qQWjTLesGKZ5D34ir6M9VVPkOL XwIWU0oDV2mU2hsWntgcfaeXJk vKuiwlWloOeaJZekNNlgE248 IHRvcDsnPlBhdGllbnQgTmFtZT e9N0MpTbz8XJBldZcxPP0haVZo PTjxBc9nbYqjxPmjAA5gIECk zinjb766VxKtp4xnVQZcvGFkZC qhDKJ6Q74nm2M9XWQcYPIpEMB4 kLN8lC1fqIfzzsklyYRqeWzt eoIlzGnzPTomGVqvP905OMVpuI byOrNjgbRqGJJneHW4VT02VC18 nMBqz0H8fOZ4P7KyLTEiprup urgdjJZ8OQZwNXRgfR25Au2weU aaSe1zHHDcPWO2GHQpcELvB8Qe aT2kVsYcLNYeGEBvG1AbiVLv JKfhD790NDkiWiC6IYIhkmMbB7 YaQULaxRakDeL1p4A0Ek5BG0F0 HE28HJ00zPOax4J1nMH2M3Wx TQMkmmzmvusppMP3XIEaEAZnqL 17Kl9eoJxjAq2dMGGuJUC0VIAi uJOwB0OtoK2nUcGkUCYwGPAy Q2PdvHOlZRgrE041JUbbMcK3MH ChzvTjB9RqFPUvkUzlBdM6i5H2 Mn2NZJe1EQ43GB27mPSxw7J0 aOV1P5EoBRVrfivbmdffsPV5LE JlZXTydH88Zj9dcOzbYx0kGQEj UKU1ZMSgjUGkH8JznQ8wPsBu NYAoLOJqM2HifZMgVAsuL040TP wgHiK7YHPdhhFlC7RqQUEbnRsi WrW0o2M2Aq3UZUMaJK99SDW2 dQV8TE91SV57O2BzTodpmZIqnG U+PHRhYmxlIHdpZHRoPScxMDAl OtHxoArtCM1kZb1fQTYrGQIf bUvkqVFhFrWit9oeBLVxYBafBY 9biQoiW4QoiUH0XHWsf2x7Ku79 Y61bK6PssTO+ETIxkXV6yCW3 tW2aGwZyFrE1JQajA272NuNgyL TtVdszw6jxk6uybIs3FbJ3VQAm epFnhFdfDAG7p1ZoBq71T35y IHdpZHRoPSIxNSUiIHZhbGlnbj 8svC8qQv9+WXNkiRF9sOI2iO4d NxIvOzB0GNhoH173JlBmiNSb Hfizs3rcc8vhnZo6MaUoXSPcfz LtlQrnCEK1b1LuMf92C5GabHrv h1VxVpp5gk37pOFmr4W7xRD8 D8NqSUItxdafcODpbRxcFH2bMH QdjtsfGHUadQ9zPDWtD7e4VnXi RyB7VOgbX3MhafT6KAVfpPQe HJqqSDE2S59bt6A2KSIlTFHtSH X4mYF2xD0biUwgmxrmwONtbGnu jvCevPkoXQgpWUbaU071FTZk xBqvBYZbdD8uBYTvsZPppIorZM 4wNTBpbjsnPlNURUlOLCBWSVJH JD3IJTDSWIL0L8QuUsn0KOOj aXrnNK1iiYQwAAgnGr6zyPgirZ rjJJ1kDYVufgqeKUDpmG8uCUIi zUZdfHnaRJ8wZDJkduxvi041 NzMnNNJ6VGEyyABgU0VfcH5kKf IiNWVvFKBzT7WluOZvDEveT890 PZgyQoO4JJAdlbVtU4QcVHKw eTtiCyC2v9R8Vq4yGA1uLG2dUY dkJO92LA38mXHna2X4cUC7Y4Mi SBKgtinocgbbjVC8WADcHKOu sC67sOYuSMczDn3nl6U9h478FY FfTADteW51Mz8meJpfJKEmaUGF rY4tttrht8aowmdeZzAlYSJz LBb2PNs3YEOckOxyBzMkTMI9Aj D5XXZ3eRNysL3fkYjlphanyC2k Oyc+NszlUANcovL3T6PmEkv1 EXNskPonOC5qtLHfUCrzBh7kaI zzaKngSX9oWQCpnqapMSYpbP8l PHQshNCaiSncLU6cNPHgqubm c448TlGoLOQ8GPWsfHHoM0QujY 9oLhGrRIJgNLMxP1VybHWiHGjt I546IVbjKrC0PWRrrsPvU8Hj QITmvBotCbA3o1H2Md0JGD6EVC M4X5TqVyb2WFWqcXvcLP5lbHBz HYspIv8lzCsodYpgNE4rXYWv plaeHGFmoB5sDKYgiMFmlMdeDQ 4cFZDbzxdbg261RmZvUYF8QXJx nVOlZ8NjaW8cUsBiTKIrQRCs Q9DljANrPKbsY260HMcxPdM1WS ZvbqEuN4UgJWAfvCpsSeM6o4C6 Mo5GcLBcT6BcO0i7K9BjPadf dHI+BP78JSGsZR01dYBseGWyq7 thiMq4RbTzLCJdOBI6cKzzJRoe s8ZnAJAxF84itNGzq5K6IZRb sScwuOAfYxRzcTQ1mM7iSKophh hus0gehnlkBvcwn1kvtd20zB74 G34gXOwfHXNiYGSzNSKbFDSv yNxkta4jeQ1iNz4+KVWixJE3pJ F8cH4zRrOnFyF3EVbvU572ShBz bSTsTtqcx2kwi4osdEh2FsYe YTWarxJowAptRNU6i6FrGq39W1 9sIHdpZHRoPSIyMCUiIHZhbGln bg4ieI8cNg9+IX3fp1tmjl14 lR82eKO+DLHrTXP4xIccJCixLH QjzP5rPTqnQrW4JRLvIzJpwM13 nTUbLAngNk0izJjokWukNK8h ZFTtuwxln822JbLfp9ebYQSntJ QaVBpuNUA3G92sa0A6SUCaWDGf ZTQ3lIX5cA9sjKlslsvvmDEy aCtvbeWyiVwjBZbyDGalK087MV EggJukCfYazZRdB2gznrUOSG7z OjwvdGQ+GXJvSEG4xUmfJKzx IFTmoJ5hQDCzG6h4LpGlKyO9UK tmW2AgtsJ3KYBwzDVxOAUalXUH vC6wnyxor7oykjywCrImKZVe HZl1COf2EFVudXssGnCvHWA5Ae G8VZM7jFGcfX3dvKwbvvsahV5b Oyc+RklOOjwvdGQ+PHRkIHN0 uKmbHJesXRFfyF7qJKJnY1v7Gw HfVyG1VMysG8UagmB3FUPhqDTg LWDvzUDBrP8xlkmyp5ltbdyy WhFaZTSvPPp3AEr6NPOggDayGn GhJMU7SfR3HBS3gSYxyD6yeLlz qmvihA6tCql+TVJOOjwvdGQ+ FEMwYAP9aKhbIPyyZIGdwJ5sNB YkW6h3EoUeXuD1PQfjB7ChvjR1 DEWzfWYaSFOvhJRJmQ2mdarq i6qwbwraDsUxHETvLDv1LWa5VF UwsOkpHyCyKZZ4UrQ6AOF8zZYt wS0lqKjxnmbqjM6cUch+UGF5 ESH0QX68PT58L5BvKfxblTBfyY U+PHRhYmxlIHdpZHRoPScxMDAl PrEevIdzZZ9yNe1qJYJoDKIo bGx (more content not included)... Normal [facility] CHLAMYDIA/GONOCOCCUS RAINER ( AB/URINE/PAPon 02-09-2022 Chlamydia trachomatis, RAINER Negative Normal Negative [facility] Comment on above: Performed By: #### R PRQ #### [facility] [address] [address] [address] Juan Antonio Ibarra Neisseria gonorrhoeae, RAINER Negative Normal Negative [facility] Comment on above: Performed By: #### R PRQ #### [facility] [address] [address] [address] Juan Antonio Ibarra AFP MATERNAL FOR SPINA BIFID Aon 02-08-2022 AFP MoM 1.41 Normal [facility] Comment on above: Performed By: #### A FPMAT #### [facility] [address] [address] [address] Juan Antonio Ibarra AFP Value 66.8 ng/mL Normal [facility] Comment on above: Performed By: #### A FPMAT #### [facility] [address] [address] [address] Juan Antonio Ibarra AFP, Serum for Spina Bifida Report Normal [facility] Comment on above: Performed By: #### A FPMAT #### [facility] [address] [address] [address] Juan Antonio Ibarra Comment Comment Normal [facility] Comment on above: Result Comment: Melchor Chaudhary, Ph.D., [facility] Director . References: Available Upon Request. . Multiples Of Median Cutoffs For AFP Elevations Briscoe 2.5 Black 2.8 IDD 2.0 Twins 4.5 Abbreviation Definitions IDD - Insulin Dep Diabetes OSBR - Open Spina Bifida Risk . For further inquiries contact [facility] [employer] [facility] at [phone]. . This test was developed and its performance characteristics determined by [employer]. It has not been cleared or approved by the Food and Drug Administration. Performed By: #### A FPMAT #### [facility] [address] [place] [address] Dr. Juan Antonio Ren Age Collection Date 18.3 weeks Normal [facility] Comment on above: Performed By: #### A FPMAT #### [facility] [address] [address] [address] Juan Antonio Ibarra Gestat, Age Based on LMP Normal [facility] Comment on above: Result Comment: Reca lculations are not recommended when gestational dating by LMP and ultrasound are within 10 days. Performed By: #### A FPMAT #### [facility] [address] [place] [address] Dr. Juan Antonio Ibarra Insulin Dep Diabetes No Normal [facility] Comment on above: Performed By: #### A FPMAT #### [facility] [address] [place] [address] Dr. Juan Antonio Ibarra Interpretation Comment Normal [facility] Comment on above: Result Comment: [...] Customer Services to discuss available options. The [employer] recommends amniocentesis be offered to women age 35 and older. Performed By: #### A FPMAT #### [facility] [address] [place] [address] Dr. Juan Antonio Ibarra [age] Normal [facility] Comment on above: Performed By: #### A FPMAT #### [facility] [address] [place] [address] Dr. Juan Antonio Ibarra Multiple Gestation No Normal [facility] Comment on above: Performed By: #### A FPMAT #### [facility] [address] [address] [address] Juan Antonio Ibarra OSBR Risk 1 IN 3501 Normal [facility] Comment on above: Performed By: #### A FPMAT #### [facility] [address] [address] [address] Juan Antonio Ibarra PDF . Normal [facility] Comment on above: Performed By: #### A FPMAT #### [facility] [address] [address] [address] Juan Antonio Ibarra Race Normal [facility] Comment on above: Performed By: #### A FPMAT #### [facility] [address] [place] [address] Dr. Juan Antonio Ibarra Test Results: Negative [facility] Comment on above: Performed By: #### A FPMAT #### [facility] [address] [address] [address] Juan Antonio Ibarra VAGINITIS/VAGINOSIS DNA PROB Abdirashid 02-08-2022 Bettye species Negative Normal Negative [facility] Comment on above: Performed By: #### A 1C #### [facility] [address] [place] [address] Dr. Juan Antonio Ibarra Gardnerella vaginalis Negative Normal Negative [facility] Comment on above: Performed By: #### A 1C #### [facility] [address] [place] [address] Dr. Juan Antonio Ibarra Trichomonas vaginalis Negative Normal Negative [facility] Comment on above: Performed By: #### A 1C #### [facility] [address] [place] [address] Dr. Juan Antonio Ibarra ABO and Rh group post transf usion reaction Nom (Bld)Ordered By: Eleazar Hess on 02-06-2022 Microscopic observation Gram stain Nom (Unsp spec) [facility] ED Clinical Summaryon 2021 ED Clinical Summary [facility] Emergency Department [address] [place] [id number] ED Clinical Summary PERSON INFORMATION Name: ZULEIKA WYATT Age: 31 Years Sex: FEMALE : 1990 MRN: Acct#: Visit Reason: Rash; Medical problem - minor; POSS BODY INFECTION Arrival: 01/29/2022 20:27:46 Discharge: 01/29/2022 21:17:00 LOS: 000 00:50 Check In: 01/29/2022 20:27:46 Checkout:01/29/2022 21:17:00 Address: [address] [place] [address] [place] [id number] PCP: Andie Stoddard PROVIDER INFORMATION Provider Role [...] follow-up with their family doctor or their [facility] doctor. To this they agreed.. Health Status [...] follow-up with their family doctor or their [employer] doctor. To this they agreed.. Health Status [...] infused Use per Day: 1-25 Inhales/day Comment: vapes nicotine daily but stopped 5 days ago when she took a test. - 11/13/2021 16:57 - Gracy Collins RN . Problem list: Active Problems (1) No Chronic Problems . Medical Decision Making Orders Launch Orders Pharmacy: clindamycin (Order): 150 mg, PO, Once. Impression and Plan Diagnosis Sebaceous cyst ([id number] L72.3, Discharge, Medical) Plan Condition: Unchanged. Disposition: Discharged: time 01/29/2022 20:59:00. Prescriptions: Launch prescripti (more content not included)... Normal [facility] ED Patient Summaryon 022 ED Patient Summary [facility] - Emergency Department [address] [place] [address] PATIENT DISCHARGE INSTRUCTIONS Patient Information Name: ZULEIKA WYATT Age: 31 Years Date of : 1990 Reason For Visit: Rash; Medical problem - minor; POSS BODY INFECTION Arrival Time: 01/29/2022 20:27:46 Primary Care Physician: Andie Stoddard Attending Physician: Johnson Wright DO Comment: Visit Diagnosis: Diagnoses This Visit Medical problem - minor ([id number]) Rash ([id number]) Sebaceous cyst (L72.3) The Pharmacy at [facility] is open Saturday through Saturday from [...] alcohol and/or drug addiction problems; contact the [facility] 07/01 Crisis Hotline -Text 4HNYL to 016991. If you received any narcotics, sedation, or [...] legal documents With: Address: When: Andie Wyatt [facility] [id number] Business (1) Within 3 to 5 days Comments: home warm compresses clindamycin for antibioitic see your ob, or Dr Wyatt, for recheck apt ----at some point, this might have to be removed; this is not cancer, but a retention cyst of fat material; Return if very red and tender, or fever, vomiting worse You are welcomed to return anytime. Call Dr Wright, ext [phone], if any question patric WRIGHT< ER PHYSICIAN< H [facility] Medication Information: The exam and treatment you received today in the [facility] Emergency Department were for an urgent problem and are not intended as complete care. It is important for you to follow up with a doctor, nurse practitioner, or physician?s assistant floor covering printer for ongoing care. If your symptoms become [...] of medications post discharge. Please inform your quality control representative/provider of your visit and for further instruction [...] Notes performed by CV on 12/26/2021 Normal [facility] Comment on above: Performed By: #### R UBIGG #### [facility] [address] [place] [address] Dr. Juan Antonio Ibarra HEP B SURFACE ANTIGEN SCREEN on 12-28-2021 HBsAg Screen Negative Normal Negative [facility] Comment on above: Performed By: #### H BSANS #### [facility] [address] [address] [address] Juan Antonio Ibarra HEPATITIS C VIRUS AB W/ REFL EX QUANTon 12-28-2021 HCV AB 0.2 s/co ratio Normal 0.0-0.9 [facility] Comment on above: Performed By: #### A 1C #### [facility] [address] [place] [address] Dr. Juan Antonio Ibarra Interpretation: Comment Normal [facility] Comment on above: Result Comment: Nega tive Not infected with HCV, unless recent infection is suspected or other evidence exists to indicate HCV infection. Performed By: #### A 1C #### [facility] [address] [place] [address] Dr. Juan Antonio Ibarra HIV 1 AND 2 WITH REFLEXon HIV Screen 4th Generation wRfx Non-Reactive Normal Non Reactive [facility] Comment on above: Result Comment: HIV Negative HIV-1/HIV-2 antibodies and HIV-1 p24 antigen were NOT detected. There is no laboratory evidence of HIV infection. Performed By: #### R UBIGG #### [facility] [address] [place] [address] Dr. Juan Antonio Ibarra RPR QUANTon 12-28-2021 Rapid Plasma Reagin, Quant Non-Reactive Normal NonRea<1:1 [facility] Comment on above: Result Comment: Plea se Note: This test does not meet current guidelines for screening and diagnosis of syphilis. This test is intended for following treatment response in patients being treated for syphilis infection. To screen for syphilis infection, a reflex cascade that includes both RPR and a treponema-specific assay should be utilized, such as Treponema pallidum (Syphilis) Screening [place] (646325) or Rapid Plasma Reagin (RPR) Test With Reflex to Quantitative RPR and Confirmatory Treponema pallidum Antibodies ([id number]). Performed By: #### R PRQ #### [facility] Laboratory [address] [place] [address] Dr. Juan Antonio Ibarra RUBELLA AB IGGon 12-28-2021 Rubella Antibodies, IgG 3.48 index Normal Immune >0.99 [facility] Comment on above: Result Comment: Non- immune <0.90 Equivocal 0.90 - 0.99 Immune >0.99 Performed By: #### R UBIGG #### [facility] [address] [place] [address] Dr. Juan Antonio Ibarra CBC AUTO DIFFon 12-26-2021 BASO # 0.0 103/ul Normal 0.0-0.1 [facility] Comment on above: Performed By: #### A 1C #### [facility] [address] [place] [address] Dr. Juan Antonio Ibarra Basophils/100 WBC (Bld) 0.3 % Normal 0.2-2.0 [facility] Comment on above: Performed By: #### A 1C #### [facility] [address] [place] [address] Dr. Juan Antonio Ibarra EO # 0.0 103/ul Normal 0.0-0.7 [facility] Comment on above: Performed By: #### A 1C #### [facility] [address] [place] [address] Dr. Juan Antonio Ibarra Eosinophils/100 WBC (Bld) 0.4 % Critically low 0.9-7.0 [facility] Comment on above: Performed By: #### A 1C #### [facility] [address] [place] [address] Dr. Juan Antonio Ibarra Erythrocyte distribution width (RBC) [Ratio] 13.5 % Normal 11.0-15.0 [facility] Comment on above: Performed By: #### A 1C #### [facility] [address] [place] [address] Dr. Juan Antonio Ibarra Hematocrit (Bld) [Volume fraction] 38.9 % Normal 36.0-48.0 [facility] Comment on above: Performed By: #### A 1C #### [facility] [address] [place] [address] Dr. Juan Antonio Ibarra Hemoglobin (Bld) [Mass/Vol] 12.9 g/dL Normal 12.0-16.0 [facility] Comment on above: Performed By: #### A 1C #### [facility] [address] [place] [address] Dr. Juan Antonio Ibarra IG # 0.03 10e3/ul Normal 0.00-0.03 [facility] Comment on above: Performed By: #### A 1C #### [facility] [address] [place] [address] Dr. Juan Antonio Ibarra IG % 0.3 % Normal 0.0-0.5 [facility] Comment on above: Performed By: #### A 1C #### [facility] [address] [place] [address] Dr. Juan Antonio Ibarra LYMPH # 1.4 103/ul Normal 1.2-3.8 [facility] Comment on above: Performed By: #### A 1C #### [facility] [address] [place] [address] Dr. Juan Antonio Ibarra Lymphocytes/100 WBC (Bld) 14.5 % Critically low 20.5-60.0 [facility] Comment on above: Performed By: #### A 1C #### [facility] [address] [place] [address] Dr. Juan Antonio Ibarra MANUAL DIFF REQ NO Normal [facility] Comment on above: Performed By: #### A 1C #### [facility] [address] [place] [address] Dr. Juan Antonio Ibarra MCH (RBC) [Entitic mass] 29.6 pg Normal 26.7-34.0 [facility] Comment on above: Performed By: #### A 1C #### [facility] [address] [place] [address] Dr. Juan Antonio Ibarra MCHC (RBC) [Mass/Vol] 33.2 g/dL Normal 29.9-35.2 [facility] Comment on above: Performed By: #### A 1C #### [facility] [address] [place] [address] Dr. Juan Antonio Ibarra MCV (RBC) [Entitic vol] 89.2 fL Normal 81.0-99.0 [facility] Comment on above: Performed By: #### A 1C #### [facility] [address] [place] [address] Dr. Juan Antonio Ibarra MONO # 0.5 103/ul Normal 0.3-0.8 [facility] Comment on above: Performed By: #### A 1C #### [facility] [address] [place] [address] Dr. Juan Antonio Ibarra Monocytes/100 WBC (Bld) 4.6 % Normal 1.7-12.0 [facility] Comment on above: Performed By: #### A 1C #### [facility] [address] [place] [address] Dr. Juan Antonio Ibarra NEUT # 7.7 103/ul Critically high 1.4-6.5 [facility] Comment on above: Performed By: #### A 1C #### [facility] [address] [place] [address] Dr. Juan Antonio Ibarra Neutrophils/100 WBC (Bld) 79.9 % Critically high 43.0-75.0 [facility] Comment on above: Performed By: #### A 1C #### [facility] [address] [place] [address] Dr. Juan Antonio Ibarra Platelet mean volume (Bld) [Entitic vol] 10.0 fL Normal 9.5-13.5 [facility] Comment on above: Performed By: #### A 1C #### [facility] [address] [place] [address] Dr. Juan Antonio Ibarra PLT 194 103/ul Normal 150-450 [facility] Comment on above: Performed By: #### A 1C #### [facility] [address] [place] [address] Dr. Juan Antonio Ibarra RBC 4.36 106/ul Normal 4.20-5.40 [facility] Comment on above: Performed By: #### A 1C #### [facility] [address] [place] [address] Dr. Juan Antonio Ibarra WBC 9.7 103/ul Normal 4.0-11.0 [facility] Comment on above: Performed By: #### A 1C #### [facility] [address] [place] [address] Dr. Juan Antonio Ibarra CULTURE URINEon 12-26-2021 CULTURE URINE Culture Observations : LIGHT GROWTH OF MIXED GENITAL ALONSO. NO POTENTIAL PATHOGENS SEEN. Normal [facility] Comment on above: Performed By: #### R UBIGG #### [facility] [address] [address] [address] Juan Antonio Ibarra GLYCOHEMOGLOBIN A1Con 2021 ADA RECOMMENDATION SEE BELOW Normal [facility] Comment on above: Result Comment: ADA RECOMMENDED LIMIT 4.0 - 6.0 ADA THERAPEUTIC TARGET < 7.0 ACTION SUGGESTED > 7.0 Performed By: #### A 1C #### [facility] [address] [address] [address] Juan Antonio Ibarra Glucose [Mass/Vol] 114 mg/dL Normal [facility] Comment on above: Performed By: #### A 1C #### [facility] [address] [address] [address] Juan Antonio Ibarra HbA1c (Bld) [Mass fraction] 5.6 % Normal 4.5-6.2 [facility] Comment on above: Performed By: #### A 1C #### [facility] [address] [address] [address] Juan Antonio Ibarra US PREG TVon [...] by: FELECIA GOLDMAN Date: 2021-12-07 16:59 Normal [facility] Coding Summaryon 11-21-2021 Coding Summary HTMLBase 64 FhystckgTWo9jPz+PGhlYWQ+PE 4KNLUrX28jvUTkfO7AM0bCQE1E YGDYQEXQPU2LVH5ptFM4ZMbpZ6 VybiAv VpocfVFuBT84OZo1IHR4nMcnXU pvlY2wqUPqB1m5OqXtWF20oZ84 NBiwFRTjDyI6MnUktwadbRDg U8ehStSssYExCbc+PHRhYmxlIH waVGWcMJckNMCjFmCbqPphUN3k Vt4wZVAwPSFlvYveiJPbXvZc o7wiCZSiWOptNP9beKubW9JvmA K1CCJcu6w4It19yXL+PHRkIHN0 cEwqEOsbj903TjVbc6ysWPW2 sXLcYYvtWDD8E32qe0G0TFXdQM HePYG9tZR3rW2ceKonjoyzT1Tf rLJmCmS9QQU0dYGknS8yaSbm ywdwvH8uZlw+Z55AHE4PLLFLJO 9ZIyh1Q0HuYrahcTG+HK10MRFj RB58pRNxzGRgq7xloHb2QbDn AORpDXS7yIddIMcyb1ZqAHErS6 1fgDZrv6Z4YVFgiOqrqSOnGxQs xBY1cC1jMWmiedwcp7nganbn Iyzrw9pjzx03vG26X39gYWdfUU NuDUO0TYYrKNUqkZmnyi3qiV4a Ii8+OQfco7drn2ixlYk0PgYo JEGomfPvtJwkRSD5k4ReJp01J9 JviLtzi3SaGuv1fc70cGEds2D8 dHA9JQslWTGrgC1kXLrzByU0 ETRpMxPlpV00iHRtSIbvXm8gbK kxkYmqON8dQCQvgulqPUFmkG6p FTSixGCgvCcnYW2cSXQudzmj u361UhMkGQN9IHEtdWVaP9PpxK 7yRxFtXWIpTEHyJ0CfxWMjIJgc O312FLorDxW5LIUkjkVzY7Zk TANrhVduIlN7u3J7Eo1Fu4Deyp lzDUL9QGpeJZO9VoI4KfPhXnA9 P7RuVwq8JOJarDfhJJ8dB8Pz FGQvveiiihbjqGD5CIEmACEmsD 08xWXgBPdhUm1uo7R9b683VWBg FOIqvE78Pa3otRwxYNYfoSUU qO8covpqa6sauqayGcIsVDOdUR m9FYw9PFEwoAcuRaBbPHN8QqQ3 INN6pMChoU3bjFtyrhcvsK8l Oyc+P83vxX4iUGE4MFU8bsitRP KttwPyHO81XO13V9CiLcoljSYy bGU+MTRpdwQezWiqOD2hLkWy k6tkr9CoFCmbZ9ToTKPbOHuhVj n6LLBsUDP1yXM3jA0oJFCbLVth m5V3rMO8B2PrkfYhyu9nn4ma IZFgAGxlM50tdPLsf9K0XVZqdG Q4JOCrkWbaTeSuwZ89Nqv+PGNv gVzhg4CuUfimp4zqd2gczTs5 ZyCdYHVmwbZnqPxuIIJ7q3EnOd 95A75hEIcmSHOoOJRbEYLsRZTq iTqkax1lbJ7xYv3+PGNvbCB3 pHG4mF2uTFNlKsT5PKkfM317Rm CirUUdLecne7kwe1qyxPu9ReVe GBRdmnCdmUuzVBC6t2XbEq54 I61iNUneOTXmKAQaOIQbQKNieU awzl3rcI9eKw7+NU8ib0tqpf06 hL10fFM+KRXkVXB6jMoaJRdi KSUpgN0tEMjdNeC7QOPuDvJifX 04qCDyRXbeXk2imNrdrOnhCV2z KDKimzpxb696EhEzy5zaMGVm fSZoAZzfQEV2V97zk0T0EBMdXR FgFRR6fVY9xE3mtPlrazncmXCm oIhbieCmcDimFPitXIenV114 IHRvcDsnPlBhdGllbnQgTmFtZT q2X7OrZks4XURwcAbqXA5adDGp CMnyNa6sbVrppRbrFS9pDSNv fkgev032AhOgl5oxJIYelEFvWO flNIN6X82gc1G8PLPoQNUyHKE0 xTW3iM4zsLntaypywREonLkx muWziNakFFrgJScdM215WUSriY mnAgYigdZxSBYxaUS7CV78FS59 nWRwp4N3dKO9W2KyUCNhrqts nubmzPS6HYPhROHutV96Wt1xjK ikMk7yCSXtRJX5RINwbDDzG5Sf zE7tXzVzHBYvYKElN8FefUEg BUteL468KPbvAvT5FEFumsLdV8 GrZPSeaQdpIyT2o0C2Zr7RJ0I7 IX25RZ55eWFcw0L5sNG9A1Yr VKJuijkaxpbvyPL6ELQiYYBswC 07Nx8baNtsLf0qHIHwOHX3LYRs yLFmR1EksF6nVrFeENRsWZVv N4SkcXNcEFjvE347MEcjKsQ6DW OedqPdH4ScPSCxwHeuPsA2b3T7 Ji2LSIr3GF23PM98iNNzl5B7 tCF0G4IdJYOdxecnguvicIN7NK QrBXKhkD12Ot0jhCbhGo1vBROr EJQ1OMPkmBAgB5WryT4aYrCb KDMzHXRyN2CtaAQoHVbeP219HQ urFwM8LMPsylGiS1HxQGRepZua JiW4l7I3Ew4VWCFbGR13HPQ2 uVQ8CI00UT48U2WpTswpdNDdcO U+PHRhYmxlIHdpZHRoPScxMDAl NwVjmZhsMV8kQq1eHRPbMEId xHqsoOStYdSgf3hzKYImQVdlXZ 1ezRfuE8XthFC9XQZoq2u5Ez02 P63aO3NbvSA+EUWxeSH7vLR5 fP2jBnNhZkG3ONfqB315SvXfqP EzQdudj0ycx1mazVr7JvP1PGCs tkHtuSlvDGS5c1XyJa76Z63f IHdpZHRoPSIxNSUiIHZhbGlnbj 4giC8dQy5+KEStxTQ1yWX7gD0u JkXzChZ3EUwiL836WaWweLOv Kahmt3bnv0wkcUh5YwDoIBBoky PywIveXXA9z1TkBi91U4FtbKbk l3WsMki2rz29xQHsq2L4iFR5 Z7UjKDPpjomiwFAetPpyTA4qWF CbcxtnMUReaS3yEAYsD4g4KzYz MhY8ZQejO4FhozP5ASXuyXRm BIwyMQA8U36xs6X7YBVoOPRpVI O7xWN7fG3ohDeqttgagFEqjLnc boOywAwvZHpmMWcbY698FRNt rOijOXQvgU9eUWLpqQCedBlhBC 4wNTBpbjsnPlNURUlOLCBWSVJH BX5OCHUBTKY8P5NsHvf7CJYa yCuvTL4waIZtRPulPf8teVzesW slSF6aETOvrpaeGUYqmI7qRIYx zXFtoPpzPD6tSKLmkiiwg649 KzOeXYM3OVXbmDOmK0VeiG6uBc JaYPLbBLFvN5KqoTWvIQcfA717 LVzwVoK0VMDlscWxX6EbLEUr iLgtDbJ5h8T1Yh8hBS1pWK0eFW dvDJ41UE21gIIgu8M8dTT9C1Eu OBUofqxhaktkfQG2BXLeRDCf oS90hEBuCOeoFg8wm1K1m134AA XvRONaiY83Rg7vpUchVBPqqUEW dW5ifduug5hkcaikPjDnQBWc QNn8AXy1YGJsiYgjWmTzOYU9Gg W4QQA2gNBqyA6stFtzrkicmT9p Oyc+XceoCUSfxnX7B2QqTrr2 YOSpyJbuDM8fmWUpNCvmJi8emU fgpAgwWM2iMKRwjheuPBXzbB8a VNFbmXXwdRbfCL5aFANhnpxa e784QsIqHUH6SWIwoJPuT1ImdH 6aUzUsZAIyKDZnV2DdlZRuPKng W746IGspLxB5BYHnckJsX5Sx SSUafOitMjS9u5Q9Ym6EGG7GOL W1F8BaKor3MLNjmLhiTZ6mwVUy ITwlKc2mnHvbdXkcEJ0pBZNd ftcyUPLmcV4pJAEwaIZpzNbtDK 8oXIJewqvrz059EuWiOZH6GZHx lSOyI6TgkL3iLuJsBPDbWLCt B7IcfDYwLDbkE850SIczWuV2WT WtrpOsG6CyWSIahTzzYcR6q9O9 Tu1ITJnyzOS+YF90tc87U7Mw YxezXfr1GCXuCBN0ySQ4iQ2qOW FbCDvmv1W0ySX5O7TczaQieh6g c3owJIGiKFthE56gyYTpu1E1 JAFwgXE7AZIsrYxlDlDbfO89Ip c+FADfuPwrh5KtFwxlq8oph7uz kXp8BuVkRVRjlxCrkGozFPU0 n1ShAj04Z70fSOqwDBYbBHCxJX PtXKCdrYsrfu0whZ2vDj4+PGNv zAG4rCT0zB9eLkErGhD3MLls I824MjFufSYtJettc0zlh9fnfN o4IbFpGANcaqFifLkxKWL8q6Uo Ru94J0NioQune7KbHiw6bc30 lBJst5E5fIG0N3TnTPAylymgbE ItzHrwWX8wYQFijtquQECrhZ1p WFKcJ0p5ZtBuDkS0OSzdJ8Fl nbK1DAXwqDVcQKFmjMGUvH9sbt jmp4qcgvnlBrIeTLRcDYc2WYb4 OIQrgCahZmZlJDZ0MmQ8LMD6 tZRoiN9biWgvmyqzqS2mSph+UG v8n7zkiMHxFL0nmFQ2SS67QI01 zIKmf8G0vIS0D1SiJBUekski zewhfOH4ALRvDDVbkH32Yp0ojD tzRm2hIWQqCQD7EDJtyUTrC7Dc gN9yKjRwDIMqHGErT9TifRAc YAisM507VKxcWhL7WNXwwuMvC3 QbLVZszQwyUuB6g9M2Za2HKD15 PK89AF76mMBks1S7tQJ8B8Se MUQwnnepbfkybEE1QLNkSFAjxF 01Gx6jgMyoKw0vDHOhAOR2FMIw kFZrD4KnpV8vAlSfADPpPFMz W6RvfWEfEMbwP909TRzmKsL8DX YxseNhP5NqWYDhsMyuBiE2g7C1 Br8RYl49AQ84OF49lYFln7S1 rZU8K9XdPIWtostowdjtaMA6RU MkVRBysL20Ua2boJzeVc7eHUBx LJK2EMZuyGInB9SdeZ9dQkKf KLDjORNoL6EuwISvHYihJ798ZB aqGsY9ZYOaawZqS4OvGFHsyVxg SoB5h5P7Bq8RWLefton9F4Ds PjwvdHI+GC43YKHhIQ23wSNnlP Pmq8egcWh1JkZxIBPfXOA2nBfl YEtyl6ExTKRgG56gsAOtb5N4 IGN (more content not included)... [facility] Coding Summary HTMLBase 64 ZxduvizhUQx5xCx+PGhlYWQ+PE 7RLEIlH79xoFDgoZ0BV3yQKL3Y VYMPNDXFPH0OIJ5ueHR7OTfiM8 VybiAv WbvvaIMdBV02ZAc7ZUQ4ePsqFW sdoA3lkSEeB9k8CgPaUA90xP10 FOfqSGFhChS5JvVwofrcuEJg N8zwTqIdaSDwVct+PHRhYmxlIH tkDEGdSSbvCLZdWaXoaTsmXX7j Pd6qWQGvIKOfmGkneFAwQbHq v5faLWTpTCzzCE7qrEueE1NypE C4OXBpw3b1Il64qHU+PHRkIHN0 kEusPKgqw180JeSwd7ttTMR8 vDDjQBtdYAE1R38es9H5QWGqPD JvXMO8vRM6bB3hoMvrinwaY6Ya zVNgDrD5FKQ3bDQveQ8taQoq nsizmU5oFnl+P71ZNJ5KQTQQIH 9LZeo2Z5ZmFzmmtSM+EF87YFZg JA48mEYcwSMqm0xbnUl7BwPa GWUlMVH4rZctWXand4RtXGUnB0 8gkWLpj3F2QSNwaGmyfLRoJtQr vTR4lJ2qURuilzkoe7wlcjji Jdtxb6wxta26cR92O41xMZiuCT ZoTAA8ZAKyJHHarIxzlm0miY4z Ii8+LHkuu6euj7ytiQt9FeEr DGRxdcDgqAaqGKF5s5LtDm00J9 NvsDhgd4UnNzc1go72uJTsu2M5 qXF5FMdxHSNubP6yIOrxLnB9 JKDuNnMqnC62lANuTSlzNf1diE dloWgkST1tYUSppnsmYDFzqB2y DAXrtGEsaMerRK3oRZIzwntn z135TfFxOQU4LNCtsTUsQ7WkwU 1gUhDkKXAeAWKpH4EzpVDlCWdt N691ESrvJdU4MUZharXoW6Hh ILPfdKicVhW0s5V6Sy0Gg0Ssix sgKYK0NDpeOKH3IhE1OkOlGhJ4 R3FrDxv6EWShkCzkWA7jF4Kh IAHtaayczwzabIL4RWBfJBRmrH 47aBCjVGryAv3gi1S2x270PGWz JCOurA17Nw9hnMfmQQFkyBTG lK1rrvcbw2nwofdlUnPbGUAsMP w5PTb0LGRweZaxSzVsVRI8OlQ1 LJS1iAIqsM9mbRpbpxercK4a Oyc+S06trP7sIBQ6UIG8mbldYN KqmxMjWM09UM54J3AfKbslrIRf bGU+GSKabsWeyZppPO2iLhYr v0nlk9JzLFknU2OuKVVuAApwNn m6JBCnHIO2pUQ1vY0dTDKrIDkd i0L2eFI6P6QvelTdoo8wj6bc ZFRxUSgxO98iyPTys0G8DIDycD E4JAJspAilCzHpqC10Oun+PGNv uIyxo1EfEpirt3reh1ghsXr8 AbVdDVOumaXdaDzaDFE5p0OuRl 36J87xLMwnIPPvGNObJLRdLFVa bQocay0rsV9vYt4+PGNvbCB3 aLO7pV2dWFWlZlZ9KBxpC630Lb VsyYGdMtotd3ljr3lxtRi0TzTl XNAnruMkzPtnWUB4p1QmSr76 N64hFGvyOYBvHUUrHLMaHJXmeM znzj1iaX1gQq0+AL4ec5fjae28 xS26gSQ+WPLuJXZ4gRmvKBpw IVImvU7wILrxTnD4FFTmCmIzkL 52mRKbYRjaJz7wjXmscTpbGA3g MAMrokpsq013AnSgk9mvUENz nSQnGQsxNUK7S91jm2M5XUSyZE ZtHFI4dGO4iC5ucJpjjpgqmQYz cUrwqaLduAidSPgqJJzgJ925 IHRvcDsnPlBhdGllbnQgTmFtZT e6U6FpAvp7ISUbqMsySC6fvZXr PDppIp9znIfmlTudQR4mETDw mhgpn980NsPjv9whEHUtxAMaWW bmSRT3Q42ua1Z8ZARwITOrKWI6 lAO4cC1mjOsmjqngpRAalRvj deEpmLnvLRmiXWonI463DHKirI mwUoUsnrTmSLBhlIF0EL62AU32 jRTgn9L5xTV5R3PyPQNbwdxf nbcyoLR1LGAuYNGvpU30Gr2lzA wzGl0tULVuLPO4KOKwdGQiL3Ee oB7fTdOnQXCcZLKgM2WhqZPo BNrmS837IMdiGwO0AROydzMvR3 AkZLWhbUpiNgI8s5C0Nf6BB6A6 II70WT63rDJhh4E9xDU1D0Xl ERQiwvxfakacoPY4OSDmKTHdjP 92Hc9ucVbkRc5nNCPvDCI1TGGt kFQhW4LfpE0mWuQcZTXhRAWf M8OcqLQaRUjlX106WVioQqE0VD SzohKqB4GtNPOmnAzvYjE8t1P5 Ug8LUUx9KE44WA67gTRcc0W5 jQS2B8ExTREavnmkeapaeQR1IA HtULOqmL38Tn6nsCivQk5lPPLx GZP6RNBkdFObG8LowA2eRyUy HINwFGNtA3ZcpRKdCFntC039FV owRtJ7PBQpazXkE1FwDXCgwNgv CsD4d0E3Pb5CTCAlNV86RIB1 yOO1VG27IZ23A4FrCbureLBimX U+PHRhYmxlIHdpZHRoPScxMDAl KdSguJiuMG5iEl1jEUYgDTMv hNnodGUzScKpq5ikJBCtPIlnWB 6gnJpxS9FtiZR8QDTvp6w4Cw37 Y78gH7ZtmHP+UBGalWN2rUV6 tO1iZhYrDnM5MVoqR742LdIfiG NmXrtqe9iic0fcjTw3HkY0TFHc rhEwdNqlOCO2i6MaDu62Q99f IHdpZHRoPSIxNSUiIHZhbGlnbj 9itP6tBk0+CYPqqYN3oSL5zG5s VtHsXnG3GYuzB086VnOdrLHz Lcqmt2rvi0pzeAp3UrKuSVNuzj BewThnULA5z0RnHm61J0UgbZwp y6CwRig4xa01hVDsx9S7kUQ0 O6TfTUNddgvxgOYnmEjsDC8hHK WuapxqXUPsbN1jHMOsO2l8IqDp KjG2ZIsqH2TbyfO0MRGdvSUr RZrnPMV8K35cf8W8IARoCWQhRW T1aUM7bX7boLcjdzoxqYUsnZot ljEgvSkaLLpoDIwfZ592JVGz rAnzFNTqlN3qCYEcsCWeeCxfXA 4wNTBpbjsnPlNURUlOLCBWSVJH QP0MIPZHYHY5Y7LzBni6VNQi gSyjHG5wgFXmPYjbUi8jsWdjfQ ncUZ5zEWEskofpSLAbqG3bWVEs lLSctDqsWN9fPYNthvrxw387 TfCgBCL6CPVspMFjW6XxwM3aAa YkSFHrGIVzG8VogHGtCGjzO605 DRazCwF7VNQfbaSiI2QwFRMo xXdcEuH7p4X9Wr6wLK0tMT4sFP auHP86YU14fEJzn8R4oRR9H2If FOQwckrwizvijMI9XSQsAFAa hY73mASrFAhiRg2mz7Z9c886HJ UhLSZyiY50Fh5owQmoBMOhrORZ nZ5ppfajm8gulbbdJkXuNMGj WDw8QWr5JESiqNuzBdOgZDX3Ze W5EZH5iOXmpX8txJwjqlqgkJ3m Oyc+RwoaVPRqtbR2H0JdNsf9 JNPdeZdlIH0zsROqYIchNw3wgU sqvJpcFX8kLZYxlrduBLRefU8p MLHjhWQqmQeoDY7pVTBjadpn r998XoVmVYW7EAXrdXAwO3EazI 8pXmRvXRWxGCNuF6JghEVnWAqe G383UJvfHyZ3YTUrynTfD0Iy THVaiUbqTnE3p9H2Wl6BQG5UDB G5N2ScHyi1JFPrrOhsVB6xxVXp BJcjZa2jcZwhgJpjHO2nOPBf nracRAKoyK6oQGQirJKczBlgMG 1pOSLpyhara719BwAbGHN5NWLn hLFeZ2CxwL0jNyRpJGAuDWAe Z4EieOPoTYzsQ736JBroMaI0WM UlmnAcB3MrYJOpqNhrOvU9s2F6 Ou0GyXLtN6OtU2j4I5AlCxnp dHI+XG91BSEkSJ10zOUycQUab2 swfQm2ThLoXHKoRCI4gGbqFIuv e4WeMQAnY71rbWYad3Q3SAGj yQboyWXqXdWyoZM3uV3tZVnelt frg7qfmkhxUuaok2esju35wR47 U37hVFmgRCPrLERqKEPhKGDn sZyuwf7afS1jPu6+SYMqgFW7oF L7hU0hHrJqEmX9ZNyoJ963LaTv uTRgTrmvw3mxn6zlbNh2DgYm HPFehaAwoQrzMJX1j1YvQp24D4 9sIHdpZHRoPSIyMCUiIHZhbGln we5nwX2sFv6+HG5en6oxyi04 qY63oRC+HWLgFGZ8oRvlXBkaMM OhvY0eTEuvFoY4IQLjVtNmzO27 xILhPLbsOd8kvXrzwRbeUT4g UFZrkxgcg358DxGje5ffQTXhlP AdZWtsUXA7I52gv5U0WRCmZYEw LUB1tUB1sW6edOsrrcbexJYo lMzschSqqHjoUZusMHntG058UO BbaEkgHjNyoPLcK7sbijCFGB2x OjwvdGQ+VUReUOV8yPplBYrn XPZsgL5lCKNrJ2f0KiQvZeR0HJ knG3EiwxL1FUUrcKNqXCRguEFO qU5udlhuz1iizjmqMlBvASXh RAl0BWj0QZEyeSzaWtYvVMT0Oi L1CCZ3uVCnkL2umIxhnentdE2v Oyc+RklOOjwvdGQ+PHRkIHN0 lCraZQxvXPFarD8yTZQnJ0f6Ly XhYnR9FRyfZ4NdxkW3VHZitEYh IAHisZRHqC5uaxtkb1csbfid NhBkPKDjMDq1GAd8SFVtwQsaWk TiVIB7ObO7IUQ1dOVtcN0iuPxo xvkpnU4pKnv+TVJOOjwvdGQ+ ZWQrNYX8vGhrLFysVUFhjS2rRI DeS7o7UeQzZtY0ZTldG9PevcN9 HZLufICjZYIvbPMFpB5sjmvq v3msgumhRiCxQQGaDMk2NTu5UC BdvWwlBwRpVBD5BrE7OAP9fIBo oT1ajOfmgfxxtH9uBcw+UGF5 TBA6DJ89SU21P1XkKvixnTAusY U+PHRhYmxlIHdpZHRoPScxMDAl ZoGajHotJJ6jZk9pPIUjKBRx bGx (more content not included)... Normal [facility] ED Clinical Summaryon 2021 ED Clinical Summary [facility] - Emergency Department [address] [place] [address] ED Clinical Summary PERSON INFORMATION Name: ZULEIKA WYATT Age: 31 Years Sex: FEMALE : 1990 MRN: Acct#: Visit Reason: Rib/trunk pain-swelling; ABD PAIN Arrival: 11/13/2021 16:30:24 Discharge: 11/13/2021 18:01:00 LOS: 000 01:31 Check In: 11/13/2021 16:30:24 Checkout:11/13/2021 18:01:00 Address: [address] [place] [address] [address] [facility] [address] PCP: Andie Stoddard PROVIDER INFORMATION Provider Role [...] With: Address: When: CUONG ORTIZ [address] [place] [address] Within 1 to 2 days [...] results be sent to Dr. Ortiz, your SOUP MIXER physician. She will contact his office tomorrow [...] Patient/family/caregiver verbalizes understanding of instructions given Comment: [facility] ED Note-Nursingon 11-13-2021 ED Note-Nursing pt [...] 6 with steady gait and no assistance. [facility] ED Patient Summaryon 022 ED Patient Summary [facility] - Emergency Department [address] [place] [address] PATIENT DISCHARGE INSTRUCTIONS Patient Information Name: ZULEIKA WYATT Age: 31 Years Date of : 1990 Reason For Visit: Rib/trunk pain-swelling; ABD PAIN Arrival Time: 11/13/2021 16:30:24 Primary Care Physician: Andie Stoddard Attending Physician: Gamaliel Wyman MD Comment: Visit Diagnosis: Diagnoses This Visit Elevated blood pressure reading (R03.0) History of abdominal pain (Z87.898) at early stage (Z34.90) Rib/trunk pain-swelling ([id number]) Prescription Information: If you have been given a prescription for narcotics, seek immediate medical attention if you have any difficulty breathing or any sudden status changes such as confusion and sleepiness. If you or anyone you know is experiencing suicidal thoughts, mental health, alcohol and/or drug addiction problems; contact the [facility] 07/01 Crisis Hotline -Text 4HHSJ to 123755. If you received any narcotics, sedation, or [...] legal documents With: Address: When: CUONG ORTIZ [address] [place] [address] Within 1 to 2 days Comments: Diagnosis [...] results be sent to Dr. Ortiz, your [employer] physician. She will contact his office tomorrow [...] and treatment you received today in the [facility] Emergency Department were for an urgent problem and are not intended as complete care. It is important for you to follow up with a doctor, nurse practitioner, or physician?s assistant floor covering printer for ongoing care. If your symptoms become [...] of medications post discharge. Please inform your quality control representative/provider of your visit and for further instruction [...] [facility] hCG Quantitativeon 2 hCG Quantitative 20596.0 mIU/mL High 0.0-0.6 [facility] Comment on above: Order Comment: Lucy whitney call or fax results to Dr. Ortiz's office Result Comment: Resu lt confirmed by dilution Post-Menopausal Reference Range is: 0.1-11.6 mIU/mL Performed By: #### 7 [id number] #### [facility] (DEFAULT) [address] [place] [address] Coding Summary.on 12-19-2018 Coding Summary. CODING DATE: 019 FINAL [facility] DSC STATUS: Left Against Medical Advice PAYOR: [...] Boykin Date Saved: 12/19/2018 10:35 am Normal [facility] ED Clinical Summaryon 2018 ED Clinical Summary (Inserted Image. Elena ble to display) [place] [id number] ED Clinical Summary Person Information Name: ZULEIKA VILLALTA/[facility] Age: 28 Years : 1990 12:00 AM Sex: Female Language: PCP: Marital Status: Phone: [phone] Visit Id: Visit Reason: Test; MENSTRUAL PROBLEMS [...] 12/15/2018 5:58 PM 12/15/2018 5:58 PM ADDRESS: [address] [place] [address] [address] [place] [id number] PHYS DOC NOTES: MEDICAL INFORMATION: Prescriptions Given: PATIENT EDUCATION INFORMATION: Instructions: Follow up: DIAGNOSIS: Normal [facility] ED Patient Education Noteon 12-15-2018 ED Patient Education Note Normal [facility] ED Patient Summaryon 019 ED Patient Summary (Inserted Image. Elena ble to display) [place] [id number] Patient Discharge Instructions Person Information Name: ZULEIKA VILLALTA Age: 28 Years Arrival Date: 12/15/2018 4:37 PM Discharge Diagnosis: Primary Care Physician: Provider Information Primary Provider: Advanced Assistant Banquet Manager:None The exam and treatment you received in the Emergency Department were for an urgent problem and are not intended as complete care. It is important that you follow up with a doctor, nurse practitioner, or physician?s assistant floor covering printer for ongoing care. If your symptoms become [...] opioids can be used to help relieve [id number] pain and are often prescribed following a [...] be struggling with addiction, tell your health day care teacher and ask for guidance or call [facility]?S National Helpline at 6-059-268-UHIX. s Source: [place] Department of Health and Human Services/Center for Disease Control & Prevention [facility] Medications Given: Medication Dose Route No medications found. Medication Information: Comment: Pharmacy Information: Thank you for choosing [facility] Patient Education Materials: JADEN Jacome [place] , have received the following patient education materials/instructions and have verbalized understanding: Patient Education Materials: Follow-up Instructions: Prescriptions: Patient Signature __ Date Clinician/Nurse Signature Date 12/15/18 17:58:10 [facility] Progress Note-Nurseon 2018 Progress Note-Nurse Patient: [...] to take care of her daughter. Normal [facility] U BetaHcg Qualon 12-15-2018 HCG.beta subunit (U) [Moles/Vol] Negative Normal [facility] Comment on above: Performed By: #### 2 [id number] #### [facility] [address] [place] [address] UA With Cult Reflexon 2018 Bacteria LM Ql (Urine sed) TRACE Normal Trace [facility] Comment on above: Performed By: #### 2 [id number], [id number] #### [facility] [address] [place] [address] Bilirubin Ql (U) Negative Normal Negative [facility] Comment on above: Performed By: #### 2 [id number] #### [facility] [address] [place] [address] Clarity (U) CLEAR Normal Clear [facility] Comment on above: Performed By: #### 2 [id number], [id number] #### [facility] [address] [place] [address] Color (U) YELLOW Normal Yellow [facility] Comment on above: Performed By: #### 2 [id number], [id number] #### [facility] [address] [place] [address] Epithelial cells.squamous LM.HPF (Urine sed) [#/Area] 0-2 Normal 0-2 [facility] Comment on above: Performed By: #### 2 [id number], [id number] #### [facility] [address] [place] [address] Glucose Test strip (U) [Mass/Vol] Negative Normal Negative [facility] Comment on above: Performed By: #### 2 [id number], [id number] #### [facility] [address] [place] [address] Hemoglobin Ql (U) Negative Normal Negative [facility] Comment on above: Performed By: #### 2 [id number], [id number] #### [facility] [address] [place] [address] Ketones (U) [Mass/Vol] Negative Normal Negative [facility] Comment on above: Performed By: #### 2 [id number], [id number] #### [facility] [address] [place] [address] [place].plasma/[place] .RBC (Bld) [Mass ratio] 0-3 Normal 0-3 [facility] Comment on above: Performed By: #### 2 [id number], [id number] #### [facility] [address] [place] [address] Nitrite Ql (U) Negative Normal Negative [facility] Comment on above: Performed By: #### 2 5295917, [id number] #### [facility] [address] [place] [address] pH (U) 6.5 [pH] 5.0-9.0 [facility] Comment on above: Performed By: #### 2 [id number], [id number] #### [facility] [address] [place] [address] Protein (U) [Mass/Vol] Negative Normal Negative [facility] Comment on above: Performed By: #### 2 [id number], [id number] #### [facility] [address] [place] [address] Specific gravity (U) [Rel density] 1.010 1.005-1.03 0 [facility] Comment on above: Performed By: #### 2 2151469, [id number] #### [facility] [address] [place] [address] UA Spec Desc Clean Catch Normal [facility] Comment on above: Performed By: #### 2 4563838, [id number] #### [facility] [address] [place] [address] Urobilinogen Qn (U) 0.2 {Pamela'U}/dL Normal 0.0-1.0 [facility] Comment on above: Performed By: #### 2 9471434, [id number] #### [facility] [address] [place] [address] WBC Auto Ql (U) Negative Normal Negative [facility] Comment on above: Performed By: #### 2 4169710, [id number] #### [facility] [address] [place] [address] WBC LM.HPF (Urine sed) [#/Area] 0-5 Normal 0-5 [facility] Comment on above: Performed By: #### 2 4032099, [id number] #### [facility] [address] [place] [address] Auto Diffon 12-12-2017 Basophils Auto #/vol (Bld) 0.1 E3/mcL Normal 0.0-0.2 [facility] Comment on above: Order Comment: Order Added by Discern Expert. Performed By: #### 2 140336 ####KADEN [address] [place] [address] Basophils/100 WBC Auto (Bld) 0.9 % Normal 0.0-2.0 [facility] Comment on above: Order Comment: Order Added by Discern Expert. Performed By: #### 2 704960 ####KADEN BairdUpgFcha[address] [place] [address] Eos Absolute 0.0 E3/mcL Normal 0.0-0.7 [facility] Comment on above: Order Comment: Order Added by Discern Expert. Performed By: #### 2 916964 ####KADEN BairdNdxRmxm[address] [place] [address] Eosinophils/100 leukocytes 0.4 % Normal 0.0-11.0 [facility] Comment on above: Order Comment: Order Added by Discern Expert. Performed By: #### 2 100215 ####KADEN [address] [place] [id number] Lymphocytes 1.4 E3/mcL Normal 1.2-3.4 [facility] Comment on above: Order Comment: Order Added by Discern Expert. Performed By: #### 2 959003 ####KADEN [address] [place] [address] Lymphocytes/100 leukocytes 16.6 % Low 20.0-55.0 [facility] Comment on above: Order Comment: Order Added by Discern Expert. Performed By: #### 2 353904 ####KADEN [address] [place] [address] Tyrrell Absolute 0.5 E3/mcL Normal 0.0-0.7 [facility] Comment on above: Order Comment: Order Added by Discern Expert. Performed By: #### 2 765395 ####KADEN [address] [place] [address] Monocytes/100 leukocytes 5.5 % Normal 0.0-10.0 [facility] Comment on above: Order Comment: Order Added by Discern Expert. Performed By: #### 2 703496 ####KADEN [address] [place] [address] Neutro Absolute 6.7 E3/mcL High 1.4-6.5 [facility] Comment on above: Order Comment: Order Added by Discern Expert. Performed By: #### 2 914022 ####KADEN [address] [place] [address] Neutro Auto 76.6 % High 37.0-75.0 [facility] Comment on above: Order Comment: Order Added by Discern Expert. Performed By: #### 2 737427 ####KADEN [address] [place] [address] CBC w/ Auto Diffon 8 Erythrocyte distribution width Auto Ratio (RBC) 15.0 % High 11.5-14.5 [facility] Comment on above: Performed By: #### 2 890898 ####KADEN [address] [place] [address] Erythrocytes (RBC) 4.94 E6/mcL Normal 3.90-5.40 [facility] Comment on above: Performed By: #### 2 891749 ####KADEN BairdKtySelc[address] [place] [address] Hematocrit (HCT) 40.0 % Normal 36.0-48.0 [facility] Comment on above: Performed By: #### 2 855650 ####KADEN BairdHupOrvs[address] [place] [address] Hemoglobin mass conc (Bld) 13.0 g/dL Normal 12.0-16.0 [facility] Comment on above: Performed By: #### 2 685498 ####KADEN BairdQnbInhl[address] [place] [address] MCH 26.2 pg Low 27.0-31.0 [facility] Comment on above: Performed By: #### 2 954063 ####KADEN [address] [place] [address] MCHC mass conc (RBC) 32.4 g/dL Low 33.0-37.[address] [facility] Comment on above: Performed By: #### 2 759821 ####KADEN [address]IytLvdz[address] [place] [id number] MCV 81.0 fL Normal 78.0-100.0 [facility] Comment on above: Performed By: #### 2 698398 ####KADEN BairdExlBzjd[address]105 [place] [address] Platelet mean volume (PMV) 7.5 fL Normal 7.4-11.0 [facility] Comment on above: Performed By: #### 2 483557 ####KADEN BairdFpqYfnv6374 [place] [address] Platelets 347 E3/mcL Normal 130-400 [facility] Comment on above: Performed By: #### 2 395034 ####KADEN BairdQopEadr[address] [place] [address] WBC (Leukocytes) 8.7 E3/mcL Normal 3.6-11.0 [facility] Comment on above: Performed By: #### 2 663198 ####KADEN B[address]ZmhQabq9098 [place] [address] CMPon 12-12-2017 Alanine aminotransferase (ALT) 14 Int._Unit/L Normal 10-40 [facility] Comment on above: Performed By: #### 2 324091 ####KADEN [address] [place] [address] Albumin 3.8 g/dL Normal 3.2-5.0 [facility] Comment on above: Performed By: #### 2 021092 ####KADEN [address] [place] [address] Albumin/Globulin Ratio 1.0 {ratio} Low 1.1-1.9 [facility] Comment on above: Performed By: #### 2 389477 ####KADEN [address] [place] [address] Alk Phos 75 Int._Unit/L Normal 42-121 [facility] Comment on above: Performed By: #### 2 639798 ####KADEN [address] [place] [address] Aspartate aminotransferase (AST) 18 Int._Unit/L Normal 10-42 [facility] Comment on above: Performed By: #### 2 710006 ####KADEN [address] [place] [address] Bili Total 1.0 mg/dL Normal 0.2-1.0 [facility] Comment on above: Performed By: #### 2 773823 ####KADEN [address] [place] [address] BUN/Creatinine Ratio 12.5 ratio Normal 5.4-30.[address] [facility] Comment on above: Performed By: #### 2 468681 ####KADEN [address] [place] [address] Creatinine 0.8 mg/dL Normal 0.6-1.3 [facility] Comment on above: Performed By: #### 2 808845 ####KADEN [address] [place] [address] Globulin 3.8 g/dL Normal 2.0-4.0 [facility] Comment on above: Performed By: #### 2 034764 ####KADEN BairdKvuSgmm9672 [place] [address] Protein 7.6 g/dL Normal 6.4-8.3 [facility] Comment on above: Performed By: #### 2 018758 ####KADEN [address] [place] [address] Urea nitrogen 10 mg/dL Normal 7-18 [facility] Comment on above: Performed By: #### 2 267469 ####KADEN [address] [place] [address] Calcium 9.3 mg/dL Normal 8.4-10.2 [facility] Comment on above: Performed By: #### 2 080543 ####KADEN [address] [place] [address] Chloride 105 mmol/L Normal 98-107 [facility] Comment on above: Performed By: #### 2 220287 ####KADEN [address] [place] [address] CO2 25.1 mmol/L Normal 24.0-30.0 [facility] Comment on above: Performed By: #### 2 494793 ####KADEN [address] [place] [address] Glucose mass conc 101 mg/dL High 70-99 [facility] Comment on above: Performed By: #### 2 870321 ####KADEN [address] [place] [address] Potassium molar conc 3.4 mmol/L Low 3.5-5.[address] [facility] Comment on above: Performed By: #### 2 001722 ####KADEN [address] [place] [address] Sodium 140 mmol/L Normal 136-145 [facility] Comment on above: Performed By: #### 2 877526 ####KADEN B[address]IooOqtd[address] [place] [address] Lipase Levelon 12-12-2017 Lipase Lvl 30 U/L Normal 8-57 [facility] Comment on above: Performed By: #### 2 925046 ####KADEN [address] [place] [address] UA Completeon 12-12-2017 UA Blood 3+ Normal Negative [facility] Comment on above: Performed By: #### 2 806594 ####KADEN WzaSzwt[address]02 [place] [address] UA Bacteria Trace Abnormal None [facility] Comment on above: Performed By: #### 2 361240 ####KADEN [address] [place] [address] UA Clarity SltCloudy Abnormal Clear [facility] Comment on above: Performed By: #### 2 780395 ####KADEN [address]rjZibt[address] [place] [address] UA Hyal Cast 0-2 Normal 0-2 [facility] Comment on above: Performed By: #### 2 717216 ####KADEN MobRvvl[address] [place] [address] UA Leuk Est 3+ Abnormal Negative [facility] Comment on above: Performed By: #### 2 363309 ####KADEN ZcoIiia[address] [place] [address] UA Mucous Many Abnormal Trace [facility] Comment on above: Performed By: #### 2 824013 ####KADEN VwbVncc59[address] [place] [address] UA Nitrite Negative Normal Negative [facility] Comment on above: Performed By: #### 2 378769 ####KADEN DabWfhc[address]874 [place] [address] UA pH 5.0 Normal 4.6-8.0 [facility] Comment on above: Performed By: #### 2 820166 ####KADEN QbvPlzz[address] [place] [address] UA Protein 1+ Abnormal Negative [facility] Comment on above: Performed By: #### 2 763742 ####KADEN KimJpyi[address] [place] [address] UA Spec Grav 1.026 Normal 1.003-1.03 0 [facility] Comment on above: Performed By: #### 2 852607 ####KADENMorelia BairdXwuIugj[address] [place] [address] UA Squam Epithelial 0-5 Normal 0-5 [facility] Comment on above: Performed By: #### 2 905457 ####KADEN [address] [place] [address] UA Urobilinogen 2.0 mg/dL Abnormal [facility] Comment on above: Performed By: #### 2 280634 ####KADEN [address] [place] [address] UA WBC >50 Abnormal 0-5 [facility] Comment on above: Performed By: #### 2 834896 ####KADEN [address] [place] [address] Urine, color Yellow Normal Yellow [facility] Comment on above: Performed By: #### 2 064204 ####KADEN [address] [place] [address] Urine, erythrocytes 20-50 Abnormal 0-3 [facility] Comment on above: Performed By: #### 2 572944 ####KADEN [address] [place] [address] Urine, glucose Negative Normal Negative [facility] Comment on above: Performed By: #### 2 341300 ####KADEN [address] [place] [address] Urine, ketones presence Trace Normal [facility] Comment on above: Performed By: #### 2 020744 ####KADEN [address] [place] [address] Urine, urobilinogen Negative Normal Negative [facility] Comment on above: Performed By: #### 2 286178 ####KADEN [address] [place] [address] eGFRon 12-12-2017 eGFR AA >60 Normal [facility] Comment on above: Order Comment: Order Added by Discern Expert. Performed By: #### 2 876281 ####KADEN B[address]ZeiVwoj[address] [place] [address] eGFR (non-black) mL/min/{1.73_m2} Normal [facility] Comment on above: Order Comment: Order Added by Discern Expert. Performed By: #### 2 980755 ####KADEN [address] [place] [address] HISTORY PHYSICALon 8 HISTORY PHYSICAL HNO ID: [id number] thor: Clara ChaoeService: Maternal MedicineAuthor Type: PhysicianType: HANDPFiled: 12/02/2017 9:04 AMNote Text:[facility] DOCUMENTDISCHARGE SUMMARYPatient Name: Zuleika Gtz [...] 4 weeks with provider.Clara Jama, DO Normal [facility] PROGRESSon 12-02-2017 PROGRESS HNO ID: [id number] thor: Marie Lema (Res) LendeService: ObstetricsAuthor Type: [...] to home. Has appt with medical genetics01/15/18.Signature: Madalyn Vanegas: 12/02/2017Time: 8:43 AMI spent 32 minutes in the visit, with more than 50% of the total viii-fs-wgvtttjh of the visit in counseling / coordination [...] decreasing.Ambulating without difficulty.OBJECTIVE:PHYSI GEN EXAM:Heart: RR, S1, W2Ugpat: clear to auscultationAbdomen: Soft Bowel sounds present [...] December 02, 2017 : 5:45 AM Normal [facility] SOCIAL WORKon 12-02-2017 SOCIAL WORK HNO ID: [id number] thor: Meredith Ramsay (Sw)vice: Social WorkAuthor Type: Social WorkerType: Social WorkFiled: 12/02/2017 12:25 PMNote Text:SOCIAL WORK CONSULT NOTESERVICE DATE: 12/02/2017SERVICE TIME: 1015Referred by: Jose for visit:Maternal/Infant - adjustment to conditionLiving Arrangement: HomeLives With: PartnerFinancial Resources: DisabledPrimary Contact:Extended Emergency Contact Information DARRELL BRANCH IIPrcount includes the [facility] hospital[facility]elaida Emergency Contact: No,ContactRelation: OtherSupportive: YesOther Important [...] hospital. (FOBparents are Anamika Munoz of [address] [facility]).Per pt and FOB, all needed baby supplies and equipment are at the [facility] and a nursery has been set up.Per pt, name of baby girl is Martha Branch.Pt states she is on SSI and WIC.Pt shares that she is in ongoing counseling at [facility] in [place] and has appointments 2 x per month.Discussed with pt and FOB signs and sx of depression; safe babysleep and discussed ways to deal with crying infant. Pt again states sheis going to rely on her support system.No additional issues identified at this time. Encouraged pt and FOB toutilize services through [facility]. Providedcontact information.Outcome/Recomm endations:[facility]istance through [facility] spent (minutes): 60SIGNATURE: CARLA Goncalves PATIENT NAME: Zuleika Hernandez: December 02, 2017 : 11:10 AM PAGER/CONTACT#: Debo [facility] ANES INTRAOPon 12-01-2017 ANES INTRAOP HNO ID: [id number] thor: Terrance Lockhartervice: AnesthesiologyAuthor Type: Nurse AnesthetistType: Anesthesia IntraOpFiled: 12/01/2017 9:41 AMNote Text:ANALGESIA PROGRESS RECORDCATHETER REMOVAL/END OF CASESERVICE DATE: 12/01/2017REMOVAL DATE AND TIME: 11/30/2017, 1953DELIVERY DATE AND TIME: 11/30/2017 at 5:49 PMCATHETER REMOVAL:Catheter Removal: See [facility] Nursing noteSIGNATURE: Terrance Contreras APRN.CRNA PATIENT NAME: Zuleika Hernandez: December 01, 2017 : 9:40 AM PAGER/CONTACT #: [facility] ANES Keke 12-01-2017 ANES POST HNO ID: [id number] thor: Terrance Lockhartervice: AnesthesiologyAuthor Type: Nurse AnesthetistType: Anesthesia PostOpFiled: 12/01/2017 9:43 AMNote Text:POST ANESTHESIA EVALUATION NOTESERVICE DATE: 12/01/2017SERVICE TIME: 9:42 AMDOB: 1990Vitals: 12/01/1799Temp: 36.7 ?C (98.1 ?F) 36.8 ?C (98.2 ?F) 36.4 ?C (97.5 ?F) 36.4 ?C (97.5?F) 12/01/17993BP: 119/55 102/61 107/57 116/72 12/01/17993Pulse: 90 79 [...] Remarks:SIGNATURE: Terrance Contreras APRN.CRNA PATIENT NAME: Zuleika BecerrilnDATE: December 01, 2017 : 9:42 AM PAGER/CONTACT #: [facility] PROGRESSon 12-01-2017 PROGRESS HNO ID: [id number] thor: Marie Lema (Joaquín) LendeService: ObstetricsAuthor Type: [...] decreasing.Ambulating without difficulty.OBJECTIVE:PHYSI GEN EXAM:Heart: RR, S1, V9Njmrp: clear to auscultationAbdomen: Soft Bowel sounds present [...] December 01, 2017 : 6:40 AM Normal [facility] ABO/Rh Confirmationon 2017 ABO group Nom (Bld) A Normal [facility] Comment on above: Performed By: #### A JESSIE #### [facility] [address] [place] [address] RH Type Positive Normal [facility] Comment on above: Performed By: #### A JESSIE #### [facility] [address] [place] [address] ANES PREOPon 11-30-2017 ANES PREOP HNO ID: [id number] thor: Aaron (Chiara) EarleyService: AnesthesiologyAuthor Type: Nurse [...] of Sleep Apnea: DeniesHematocritDate Value Ref Range Jbgrku9811/30/2017 32.3 (L) 34.1 - 44.9 % Final Platelet CountDate Value Ref Range Cxbjwd6511/30/2017 193 182 - 369 thou/cmm Final Vitals: 299398 [id number] 139 143BP: 142/75 138/81Pulse: 75 81Resp:Temp: 36.6 [...] needed. Disp: Rfl:Inpatient medications reviewed in [facility].I have interviewed and examined the patient. I have reviewed the medicalrecord , pertinent consults and/or the pre-anesthesia evaluation,pertinent labs, and test results.Significant changes in the patient's condition since the History andPhysical, not otherwise documented in primary service progress notes: [facility] contains updated information obtained within 48 hours ofSurgery/Procedure.SIGNAT URE: Hema Cuellar APRN.DIRECTOR GLOBAL PATIENT NAME: Zuleika LambATE: November 30, 2017 : 12:13 PM : 1990 Normal [facility] Auto Diffon 11-30-2017 Basophils Auto #/vol (Bld) 0.1 E3/mcL Normal 0.0-0.2 [facility] Comment on above: Order Comment: Order Added by Discern Expert. Performed By: #### 2 515959 ####KADEN BairdJwyBwvl2491 [place] [address] Basophils/100 WBC Auto (Bld) 0.9 % Normal 0.0-2.0 [facility] Comment on above: Order Comment: Order Added by Discern Expert. Performed By: #### 2 262973 ####KADEN BairdUahOcoq2527 [place] [address] Eos Absolute 0.1 E3/mcL Normal 0.0-0.7 [facility] Comment on above: Order Comment: Order Added by Discern Expert. Performed By: #### 2 490028 ####KADEN WlfCpfp5187 [place] [address] Eosinophils/100 leukocytes 1.0 % Normal 0.0-11.0 [facility] Comment on above: Order Comment: Order Added by Discern Expert. Performed By: #### 2 932302 ####KADEN ZlaMeqx4886 [place] [address] Lymphocytes 2.0 E3/mcL Normal 1.2-3.4 [facility] Comment on above: Order Comment: Order Added by Discern Expert. Performed By: #### 2 618735 ####KADEN IgyFrnj[address]40 [place] [address] Lymphocytes/100 leukocytes 22.1 % Normal 20.0-55.0 [facility] Comment on above: Order Comment: Order Added by Discern Expert. Performed By: #### 2 607397 ####KADEN JymLspz1664 [place] [address] Tyrrell Absolute 0.7 E3/mcL Normal 0.0-0.7 [facility] Comment on above: Order Comment: Order Added by Discern Expert. Performed By: #### 2 073626 ####KADEN BairdOlnWfvb9238 [place] [address] Monocytes/100 leukocytes 7.5 % Normal 0.0-10.0 [facility] Comment on above: Order Comment: Order Added by Discern Expert. Performed By: #### 2 816754 ####KADEN [address] [place] [address] Neutro Absolute 6.1 E3/mcL Normal 1.4-6.5 [facility] Comment on above: Order Comment: Order Added by Discern Expert. Performed By: #### 2 623429 ####KADEN BairdRjvEoja0157 [place] [address] Neutro Auto 68.5 % Normal 37.0-75.0 [facility] Comment on above: Order Comment: Order Added by Discern Expert. Performed By: #### 2 107895 ####KADEN [address] [place] [address] CBC w/ Auto Diffon 8 Erythrocyte distribution width Auto Ratio (RBC) 14.3 % Normal 11.5-14.5 [facility] Comment on above: Performed By: #### 2 348586 ####KADEN [address] [place] [address] Erythrocytes (RBC) 4.34 E6/mcL Normal 3.90-5.40 [facility] Comment on above: Performed By: #### 2 410311 ####KADEN KixNlgm[address]17 [place] [address] Hematocrit (HCT) 35.1 % Low 36.0-48.0 [facility] Comment on above: Performed By: #### 2 870897 ####KADEN [address] [place] [address] Hemoglobin mass conc (Bld) 11.6 g/dL Low 12.0-16.0 [facility] Comment on above: Performed By: #### 2 239476 ####KADEN BairdAmbAgvz1465 [place] [address] MCH 26.6 pg Low 27.0-31.0 [facility] Comment on above: Performed By: #### 2 998888 ####KADEN [address] [place] [address] MCHC mass conc (RBC) 32.9 g/dL Low 33.0-37.[address] [facility] Comment on above: Performed By: #### 2 188703 ####KADEN [address] [place] [address] MCV 80.9 fL Normal 78.0-100.0 [facility] Comment on above: Performed By: #### 2 428418 ####KADEN [address] [place] [address] Platelet mean volume (PMV) 7.6 fL Normal 7.4-11.0 [facility] Comment on above: Performed By: #### 2 942852 ####KADEN [address] [place] [address] Platelets 217 E3/mcL Normal 130-400 [facility] Comment on above: Performed By: #### 2 061900 ####KADEN [address] [place] [address] WBC (Leukocytes) 8.8 E3/mcL Normal 3.6-11.0 [facility] Comment on above: Performed By: #### 2 516204 ####KADEN [address] [place] [address] CONSULTon 11-30-2017 CONSULT HNO ID: [id number] thor: Marei Lema (Res) LendeService: ObstetricsAuthor Type: ResidentType: ConsultsFiled: [...] T0 L0 SAB1 TAB0 Ectopic0 Multiple0 Live Vmvehf6Fnvd of Baby 1: Not recorded Date: 2014 [...] pupils equal, no thyromegalyLungs: clearHeart: RR, S1, M0Cctafgz: soft, nontender, no massesUterus: soft, NTExtremities: 1+ edemaDTRs: 2+FHT: bpmSt Spec Exam: (not done)CERVICAL EXAM:Dilation: 1 (11/30/1748 : Marie Lema (Res) Lendtramaine) cmStation: -2 (11/30/1748 : Marie Lema (Res) Lende)Effacement: 60 (11/30/1748 : Marie Lema (Res) Lendtramaine) [...] Epi prn4. FB soon5. [place] [address]. anomalies- prominent cisterna magna, bilateral periventrcularnodular heterotopia, [...] tobacco abuseSigned out to [facility] for deliveryDr. Amado reviewed with Dr. MaldonadoSIGNATURE: Marie Hassan DO PATIENT NAME: Zuleika BecerrilILATE: November 30, 2017 : 6:49 AM PAGER/CONTACT #: [phone] Normal [facility] HISTORY PHYSICALon 8 HISTORY PHYSICAL HNO ID: [id number] thor: Marie Lema (Res) JabiereService: ObstetricsAuthor Type: [...] T0 L0 SAB1 TAB0 Ectopic0 Multiple0 Live Iqkgkd5Insd of Baby 1: Not recorded Date: 2014 [...] pupils equal, no thyromegalyLungs: clearHeart: RR, S1, E4Hjhapgs: soft, nontender, no massesUterus: soft, NTExtremities: 1+ [...] Epi prn4. [place]5. [place] [address]. anomalies- prominent cisterna magna, bilateral periventrcularnodular heterotopia, [...] tobacco abuseSigned out to [facility] for deliveryD/w Dr. AmadoSIGNATURE: Marie Hassan DO PATIENT NAME: Zuleika LambATE: November 30, 2017 : 6:49 AM PAGER/CONTACT #: [phone] Normal [facility] Hemogramon 11-30-2017 Erythrocyte distribution width Ratio (RBC) 13.6 % Normal 11.7-14.4 [facility] Comment on above: Performed By: #### C BC1 #### [facility] [address] [place], [place] [address] Hematocrit Volume Fraction (Bld) 32.3 % Low 34.1-44.9 [facility] Comment on above: Performed By: #### C BC1 #### [facility] [address] [place] [address] Hemoglobin mass conc (Bld) 10.4 g/dL Low 11.2-15.7 [facility] Comment on above: Performed By: #### C BC1 #### [facility] [address] [place] [address] MCH Entitic mass (RBC) 26.4 pg Normal 25.6-32.[address] [facility] Comment on above: Performed By: #### C BC1 #### [facility] [address] [place] [address] MCHC mass conc (RBC) 32.2 % Normal 31.6-34.8 [facility] Comment on above: Performed By: #### C BC1 #### [facility] [address] [place] [address] MCV Entitic volume (RBC) 82.0 fL Normal 79.4-94.8 [facility] Comment on above: Performed By: #### C BC1 #### [facility] [address] [place] [address] Platelet mean volume Entitic volume (Bld) 9.9 fL Normal 9.4-12.3 [facility] Comment on above: Performed By: #### C BC1 #### [facility] [address] [place] [address] Platelets #/vol (Bld) 193 thou/cmm Normal 182-369 A [facility] Comment on above: Performed By: #### C BC1 #### [facility] [address] [place] [address] RBC #/vol (Bld) 3.94 mil/cmm Normal 3.93-5.22 [facility] Comment on above: Performed By: #### C BC1 #### [facility] [address] [place] [address] RDW SD 40.6 fl Normal 36.4-46.3 [facility] Comment on above: Performed By: #### C BC1 #### [facility] 1 [place], [place] [address] WBC #/vol (Bld) 9.85 thou/cmm Normal 3.98-10.04 [facility] Comment on above: Performed By: #### C BC1 #### [facility] [address] [place], [place] [address] LD NOTEon 11-30-2017 LD NOTE HNO ID: [id number] thor: Marie Lema (Res) LendeService: ObstetricsAuthor Type: ResidentType: LANDD Delivery NoteFiled: 11/30/2017 6:19 PMNote Text: -------Attestation signed by Serenity Maldonado MD at 12/01/2017 6:04 PMI saw and evaluated the patient. I reviewed the resident's note and agree,except that patient seen by [facility] (patient has FAS, fetus with multipleanomlaies) service, consult placed to [facility] for management of labor AND delivery.Essential primip presented at 39w with PROM, had Pugh balloon AND Pitocin foraugmentaion. Late in labor noted tachycardia that improved with IVFB ANDTylenol (mother rico had elevated temp but felt warm). [facility] [place] [facility] team for evaluation (was allowed tohave delivery to abdomen AND 30 sec delay for cord clamping). Pushed well AND hadSVD of a viable female (APGARS 8,9, weight of 3200g/7#1oz) over intactperineum. Uterus slightly boggy after delivery, responded to massage AND Pitocininfusion, EBL ~500cc.Serenity Maldonado MD ----OBSTETRICSDELIVERY SUMMARY - VAGINAL DELIVERYGestational Age at Delivery: 31v7hDgotfhj Date: 11/30/2017Service Time: 1800KeeganBg Zuleika Dillard [[id number]]Labor EventsRupture Date: 11/30/17Rupture Time: 224Rupture Type: PROMFluid [...] IntactAnesthesia:Method: EpiduralMeasurements, Apgars:Code Uziel Called: YesType of Code [place] Team Needed: PlannedA digital sweep of the [...] November 30, 2017 : 6:15 PM Normal [facility] NURSING PROGon 11-30-2017 NURSING PROG HNO ID: [id number] thor: Marguerite (Rn) ANEUDY Albarranervice: (none)Author Type: Registered NurseType: Nursing Progress NoteFiled: 11/30/2017 7:06 PMNote Text: INTRODUCED SELF TO PATIENT AND SUPPORT PERSONS. PLAN OF CARE DISCUSSED.ASSESSMENT PERFORMED. PATIENT DENIES COMPLAINTS. Normal [facility] NURSING PROG HNO ID: [id number] thor: Darcie (Rn) ANEUDY Landeroservice: NursingAuthor Type: Registered NurseType: Nursing Progress NoteFiled: 11/30/2017 10:03 AMNote Text:Patient up to shower for comfort. Boyfriend at side. On telemetrymonitors. RN remains in room. FHR difficult to maintain continuoustracing Normal [facility] NURSING PROG HNO ID: [id number] Author: Norah (Rn) KARRI Eastman Service: Nursing Author Type: Registered Nurse Type: Nursing Progress Note Filed: 11/30/2017 7:18 AM Note Text: Report given to Darcie DURAN and care transferred at this time. Normal [facility] PROCEDUREon 11-30-2017 PROCEDURE HNO ID: [id number] thor: Aaron (Service Manager) EarleyService: AnesthesiologyAuthor Type: Nurse AnesthetistType: ProceduresFiled: 11/30/2017 [...] Catheter in Epidural Space: 5 cmInterspace: approximately L2-E9Kirwnb of Attempts: 1Wet Tap Complication: NoDural Puncture [...] nurses' documentation for additional vitals.SIGNATURE: Hema Cuellar APRN.DIRECTOR GLOBAL PATIENT NAME: Zuleika BecerrilnDATE: November 30, 2017 : 12:27 PM PAGER/CONTACT #: [facility] PROGRESSon 11-30-2017 PROGRESS HNO ID: [id number] thor: Marie Lema (Res) Tristanrvice: ObstetricsAuthor Type: ResidentType: Progress NotesFiled: 11/30/2017 5:04 PMNote Text:UpdatePatient is pushing in the OR. Cat I FHRT with baseline around 160s. updated and in house.Franki Neri 2017 5:04 PM [facility] PROGRESS HNO ID: [id number] Author: Darcie (Rn) KARRI Landeros Service: Nursing Author Type: Registered Nurse Type: Progress Notes Filed: 11/30/2017 3:29 PM Note Text: Patient feeling pressure, cervical exam 9.5 cm. NICU notified. Patient feels warm, but temp 36.9. [facility] PROGRESS HNO ID: [id number] thor: Marie Lema (Res) JabiereService: ObstetricsAuthor Type: ResidentType: Progress NotesFiled: 11/30/2017 1:39 PMNote Text:OBSTETRICSINTRAPARTUM PROGRESS NOTESERVICE DATE: November 30, 2017SERVICE TIME: 1:35 PMSubjectivePatient with no complaints.ObjectiveLAST VITALS:Pulse BP Resp O2 Sat Temp Pain 78 122/63 18 100 % 36.7 ?C (98.1 ?F) 01/24PHYSICAL EXAM:CERVICAL EXAM:Last Exam Notes: Dilation: 5 (11/30/17 1309 : Yolanda (Res) Barbsoa)Effacement (%): 80 (11/30/17 1309 : Yolanda (Res) Barbosa)Station: -2 (11/30/17 1309 : Yolanda (Res) Barbosa)Presentation: (not recorded)MEMBRANES:Status: Membrane Status: Premature (11/30/17 0853 : Darcie (Rn) TigreRN)Rupture Date: 11/30/17 (11/30/17 0853 : Darcie (Rn) Tigre RN)Rupture Time: 224 (11/30/17 0853 : Darcie (Rn) Tigre RN)Amniotic Fluid Color: Clear (11/30/17 0853 : Darcie (Karri) Tigre RN)Additional Findings: NoneFETAL MONITORINGFHT: 150s Moderate/acelerations present/early decelerations/isolated latedecelerationsToco: 2-3 minutesCategory: IILABSDiagnostic tests reviewed for today's visit: Most recent labs and imagingresults.Assessment/ Plan27 year old EGA:39w0d. Admitted for augmentation for PROM1. GBS-2. Pit per protocol3. Epi in- pt comfortable4. s/p FB5. [place] [address]. anomalies- prominent cisterna magna, bilateral periventrcularnodular heterotopia, [...] EF 55%.10. H/o maternal clubfoot-s/p repair as esnohw41. H/o tobacco abuse12. Cat II- Isolate late decelerations. Moderate variability. Continuingto make cervical change. Not on Cat II protocol.SIGNATURE: Marie Hassan DO PATIENT NAME: Zuleika LambATE: November 30, 2017 : 1:35 PM PAGER/CONTACT #: [phone] [facility] PROGRESS HNO ID: [id number] thor: Yolanda (Res) SnyderService: ObstetricsAuthor Type: ResidentType: [...] pt comfortable4. s/p FB5. [place] [address]. anomalies- prominent cisterna magna, bilateral periventrcularnodular heterotopia, [...] EF 55%.10. H/o maternal clubfoot-s/p repair as jhbfve21. H/o tobacco abuseSIGNATURE: Yolanda Barbosa DO PATIENT NAME: Zuleika LambATE: November 30, 2017 : 1:11 PM PAGER/CONTACT #: [phone] [facility] PROGRESS HNO ID: [id number] thor: Yolanda Shannon) GabrielaerService: ObstetricsAuthor Type: ResidentType: Progress NotesFiled: 11/30/2017 [...] Pit per protocol3. [place] [address]. [place] [address]. anomalies- prominent cisterna magna, bilateral periventrcularnodular heterotopia, [...] EF 55%.10. H/o maternal clubfoot-s/p repair as jehatk39. H/o tobacco abuseSIGNATURE: Yolanda Barbosa DO PATIENT NAME: Zuleika BecerrilnDATE: November 30, 2017 : 11:05 AM PAGER/CONTACT #: [phone] [facility] PROGRESS HNO ID: [id number] Author: Darcie (Rn) KARRI Landeros Service: Nursing Author Type: Registered Nurse Type: Progress Notes Filed: 11/30/2017 10:35 AM Note Text: Unable to find labwork for chart. [facility] PROGRESS HNO ID: [id number] thor: Marie Lema (Res) JabiereService: ObstetricsAuthor Type: [...] 0648 : Marie Lema (Res) Sonya)Station: -2 (11/30/1748 : Marie Lema (Res) Lende)Presentation: (not recorded)MEMBRANES:Status: Membrane Status: Premature (11/30/17 0853 : Darcie (Karri) KARRI Landeros)Rupture Date: 11/30/17 (11/30/17 0853 : Darcie Washington) KARRI Landeros)Rupture Time: 224 (11/30/17 0853 : Darcie Washington) Tigre RN)Amniotic Fluid Color: Clear (11/30/17 0853 : Darcie Washington) Tigre RN)Additional Findings: NoneFETAL MONITORINGFHT: 135s Moderate/acelerations present/decelerations absentToco: 2-4 minutesCategory: ILABSDiagnostic tests reviewed for today's visit: Most recent labs and imagingresults.Assessment/ Plan27 year old EGA:39w0d. Admitted for augmentation for PROM1. GBS-2. Pit per protocol3. [place] [address]. [place] [address]. anomalies- prominent cisterna magna, bilateral periventrcularnodular heterotopia, [...] EF 55%.10. H/o maternal clubfoot-s/p repair as fygxpk53. H/o tobacco abuse?SIGNATURE: Marie Hassan DO PATIENT NAME: Zuleika LambATE: November 30, 2017 : 10:31 AM PAGER/CONTACT #: [phone] Normal [facility] PROGRESS HNO ID: [id number] thor: Darcie Washington) ANEUDY Landeroservice: NursingAuthor Type: Registered NurseType: Progress NotesFiled: 11/30/2017 10:13 AMNote Text:Patient remains in shower. RN and boyfriend at side. EFM on telemetryand adjusted while patient in shower. Difficult to keep baby on. Normal [facility] PROGRESS HNO ID: [id number] thor: Yolanda (Res) SnyderService: ObstetricsAuthor Type: ResidentType: Progress NotesFiled: 11/30/2017 7:35 AMNote Text:In to place FB. Pt tolerated procedure well. Continues to leak clearfluid. Pt uncomfortable with contractions.Cat I FHT, reactive with accelsToco: 2-5 minsHeather Romina, PGY-1Obstetrics and GynecologyPager [phone]/7:34 AM Normal [facility] Type and Screenon 11-30-2017 ABO group Nom (Bld) A Normal [facility] Comment on above: Performed By: #### T &S #### [place] [address] Comment See Below [facility] Comment on above: Result Comment: Scre en &/or Xmatch expires in 3 days at 12 midnight. Redraw patient at that time. Performed By: #### T &S #### [place] [address] RH Type Positive Normal [facility] Comment on above: Performed By: #### T &S #### [place] [address] Progress Noteon 11-28-2017 [employer] Authentication Interface Message Text Routine VisitSubjective: Zuleika Villalta is being seen today for her obstetrical visit. She is at 75z2iqucsoietb. Patient reports no complaints. Movement: normal. She [...] [facility] Supervision of other high risk , antepartum 10/08/2017 PLAN OF CAREMD/OB APPOINTMENTSHow often should patient be evaluated? q 2 weeks from 32 to 36 weeks thenweekly until deliveryWork restrictions: noneFETAL EVALUATIONAntenatal surveillance: weekly BPPs starting at 32 weeks.Ultrasound: Serial growth ultrasounds every 4 weeks.DELIVERY PLANHospital: [facility] CenterInduction at 39 weeks; CYTOTEC IOL 12-02-17 at 5 pm at [facility]. Pre-Procedure formdone (CG)GBS culture: neg 11/07/17Contraception: Considering LARC w/ ShekharTDAP recommended Constipation during 10/08/2017 Improved Colace and [...] IVC/SVC S/P [facility] POC reviewedShe would like her follow up and contraception with Dr. Ivan.The total patient time of the visit was 15 minutes, of which greater than 50% ofthe time was spent counseling and coordinating care. Normal [facility] Progress Noteon 11-22-2017 [employer] Authentication Interface Message Text [facility] plan of care faxed to [facility] in event pt would arrive for urgent management. Normal [facility] Progress Noteon 11-21-2017 [employer] Authentication Interface Message Text Routine VisitSubjective: Zuleika Villalta is being seen today for her obstetrical visit. She is at [id number]. Patient reports that she went to [facility] last night due toconcerns for labor. [...] Serial growth ultrasounds every 4 weeks.DELIVERY PLANHospital: [facility] CenterInduction at 39 weeks; CYTOTEC IOL 12-02-17 at 5 pm at [facility]. Pre-Procedure formdone (CG)GBS culture: neg 11/07/17Contraception: Considering [...] scheduled for IOL on12/02/17.Oksana amado MD Normal [facility] Progress Noteon 11-12-2017 [employer] Authentication Interface Message Text Call from [facility] that pt presented there in labor. [facility] plan of care and ACOGs faxed by Toan Chen. Provided after hours MFM number provided. Normal [facility] Group B Strep Cultureon 10-16 Group B Strep Culture Group B Strep Cult ure: No Group B Streptococci isolated. Source: VAG Collected: 11/07/17 09:00 Site: Vaginal/Rectal Received : 11/07/17 22:01Group B Strep Culture FINAL 11/10/17 08:34 No Group B Streptococci isolated. Normal [facility] Comment on above: Performed By: #### G [facility] ####[address] [phone] Progress Noteon 11-07-2017 [employer] Authentication Interface Message Text Routine VisitSubjective: Zuleika Villalta is being seen today for her obstetrical visit. She is at 56r4pifqlolexz. Patient reports occasional nausea. No emesis. She [...] Serial growth ultrasounds every 4 weeks.DELIVERY PLANHospital: [facility] CenterInduction at 39 weeksGBS culture: collected [...] OB visit and BPP.Oksana Amado MD Normal [facility] Progress Noteon 10-24-2017 [employer] Authentication Interface Message Text Routine VisitSubjective: Zuleika [...] Serial growth ultrasounds every 4 weeks.DELIVERY PLANHospital: [facility] CenterInduction at 39 weeksGBS culture:Contraception: Considering [...] counseling and coordinating care.Marco Antonio Antonio, Normal [facility] Progress Noteon 10-15-2017 [employer] Authentication Interface Message Text Ped selection made. Updated prenatals Normal [facility] Progress Noteon 10-08-2017 [employer] Authentication Interface Message Text Thank you for [...] size. There was a patent foramen ovale, jwzdlygqk-uo-fsko shunt.Tricuspid valve:Normal tricuspid valve. There was normal [...] fetuses and in fetuses with CHD and ohdgxsdbxfmtg31h14, the ratio being below 0.3 )Impression and recommendations.1) Abnormal 3-vessel view, ascending aorta was moderately dilated. 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 thymic thoracic ratio (TT-ratio)=0.1 ( TT-ratio 0.44 in normal fetuses and in fetuses with CHD and fhzemqfcdfadu68w77, the ratio being below 0.3 )5) Normal [...] treatments, follow up fetalechocardiograms and follow ups.10) [place] Echocardiogram prior to the discharge from the nursery or earlier ifcardiac condition/status changes in any way. [place] follow up and treatmentshould be determined on the basis of the findings on the initial echocardiogram.Counseling and/or coordination of care was greater than 35 minutes which is morethan 50% of the total time of 60 minutes spent on the encounter. Normal [facility] [employer] Authentication Interface Message Text Initial VisitSubjective: Zuleika [...] Serial growth ultrasounds every 4 weeks.DELIVERY PLANHospital: [facility] CenterInduction at 39 weeksGBS culture:Contraception:TDAP recommended [...] weeks for OB visit and BPP in [place].Oksana Amado MD Normal [facility] Cytogenomic Microarray Nivia sis of Bloodon 09-10-2017 Cytogenomic Microarray Analysis of Blood SEE BELOW Normal [facility] Comment on above: Result Comment: SPEC IMEN: BLOODCLINICAL INFORMATION: Learning disability[F81.9]TEST: CYTOGENOMIC MICROARRAY ANALYSISRESULT SUMMARY:Normal femaleNOMENCLATURE:arr(1-22,X)z7CJGNWCGGHKCUTI & COMMENTS:The cytogenomics microarray analysis indicated no [...] whole genome microarray analysis was performed the FDA-clearedCignis(RAarki platform, which contains approximately 2.7million markers, including 1,953,246 unique non-polymorphic copy numberprobes and 743,304 single nucleotide polymorphism (SNP) probes. Thegenome-wide functional resolution of this assay is approximately 25 kbfor deletions and 50 kb for duplications. This microarray andassociated software (Chromosome Analysis Suite Dx) were manufactured [employer] and used by the Cytogenetics and Molecular DiagnosticsLaboratories of [facility] for the purpose ofidentifying DNA [...] further information regarding intendeduse and limitations, see [email or web address] [email or web address]/cytoscandx.Note: The Cytogenetics Laboratory has this patient's blood [...] for additional testing. 09/19/2017 BIGG GARCIA, PH.D., [facility] 09/19/2017 Performed By: #### M [facility] ####[facility] [place], [place] [phone] MRI (SINGLE)on 018 MRI (SINGLE) MRI (SINGLE)CL [...] Dr. AJ CAMILO at 09/10/2017 10:21 Normal [facility] Progress Noteon 09-10-2017 [employer] Authentication Interface Message Text The total patient time of the visit was 15 minutes, of which greater than 50% of the time was spent counseling and coordinating care. Normal [facility] Auto Diffon 09-03-2017 Basophils Auto #/vol (Bld) 0.1 E3/mcL Normal 0.0-0.2 [facility] Comment on above: Order Comment: Order Added by Discern Expert. Performed By: #### 2 [id number] ####[id number] [place] [address] Basophils/100 WBC Auto (Bld) 0.5 % Normal 0.0-2.0 [facility] Comment on above: Order Comment: Order Added by Discern Expert. Performed By: #### 2 [id number] ####[address] [place] [address] Eos Absolute 0.0 E3/mcL Normal 0.0-0.7 [facility] Comment on above: Order Comment: Order Added by Discern Expert. Performed By: #### 2 [id number] ####[address] [place] [address] Eosinophils/100 leukocytes 0.4 % Normal 0.0-11.0 [facility] Comment on above: Order Comment: Order Added by Discern Expert. Performed By: #### 2 [id number] ####[address] [place] [address] Lymphocytes 1.3 E3/mcL Normal 1.2-3.4 [facility] Comment on above: Order Comment: Order Added by Discern Expert. Performed By: #### 2 [id number] ####KADEN [id number] [place] [address] Lymphocytes/100 leukocytes 13.1 % Low 20.0-55.0 [facility] Comment on above: Order Comment: Order Added by Discern Expert. Performed By: #### 2 [id number] ####[address] [place] [address] Tyrrell Absolute 0.4 E3/mcL Normal 0.0-0.7 [facility] Comment on above: Order Comment: Order Added by Discern Expert. Performed By: #### 2 [id number] ####KADEN [address] [place] [address] Monocytes/100 leukocytes 4.3 % Normal 0.0-10.0 [facility] Comment on above: Order Comment: Order Added by Discern Expert. Performed By: #### 2 [id number] ####[address] [place] [address] Neutro Absolute 8.4 E3/mcL High 1.4-6.5 [facility] Comment on above: Order Comment: Order Added by Discern Expert. Performed By: #### 2 [id number] ####[address] [place] [address] Neutro Auto 81.7 % High 37.0-75.0 [facility] Comment on above: Order Comment: Order Added by Discern Expert. Performed By: #### 2 [id number] ####[address] [place] [address] CBC w/ Auto Diffon 8 Erythrocyte distribution width Auto Ratio (RBC) 13.1 % Normal 11.5-14.5 [facility] Comment on above: Performed By: #### 2 545902 ####[address] [place] [address] Erythrocytes (RBC) 3.90 E6/mcL Normal 3.90-5.40 [facility] Comment on above: Performed By: #### 2 326131 ####[address] [place] [id number] Hematocrit (HCT) 34.7 % Low 36.0-48.0 [facility] Comment on above: Performed By: #### 2 675546 ####[address] [place] [address] Hemoglobin mass conc (Bld) 11.8 g/dL Low 12.0-16.0 [facility] Comment on above: Performed By: #### 2 817004 ####[address] [place] [address] MCH 30.3 pg Normal 27.0-31.0 [facility] Comment on above: Performed By: #### 2 [id number] ####[address] [place] [id number] MCHC mass conc (RBC) 34.2 g/dL Normal 33.0-37.[address] [facility] Comment on above: Performed By: #### 2 790949 ####K[address]EN [address] [place] [id number] MCV 88.8 fL Normal 78.0-100.0 [facility] Comment on above: Performed By: #### 2 144579 ####[address] [place] [id number] Platelet mean volume (PMV) 7.3 fL Low 7.4-11.0 [facility] Comment on above: Performed By: #### 2 268093 ####[address] [place] [address] Platelets 218 E3/mcL Normal 130-400 [facility] Comment on above: Performed By: #### 2 [id number] ####[address] [place] [address] WBC (Leukocytes) 10.2 E3/mcL Normal 3.6-11.0 [facility] Comment on above: Performed By: #### 2 459518 ####[address] [place] [address] Gest Scr Glu 1 Hron 09-04-19 18 Glucose mass conc 113 mg/dL Normal 70-140 [facility] Comment on above: Performed By: #### 2 [id number] ####[address] [place] [address] FISH Probeon 08-13-2017 Protein mass conc SEE BELOW Normal [facility] Comment on above: Result Comment: SPEC IMEN: BLOOD - [id number] INFORMATION:TEST: FISH Analysis of the Di[place]/VCFS Region [...] Metaphase images: 2The Vysis LSI DARREN Spectrum [place] Probe contains the DARREN gene (3'non-coding region of TUPLE1, [id number], and [id number]. The Vysis LSI ARSAspectrum Green Probe includes [...] performance characteristics determinedby the Cytogenetics Laboratory of [facility]. It hasnot been cleared or [...] J Med [place] 66:250-256,1995. BIGG GARCIA, PH.D., [facility] 08/16/2017 Performed By: #### F [facility] ####[address] [phone] Progress Noteon 08-13-2017 [employer] Authentication Interface Message Text Met with patient [...] understanding of findingsWork History: unemployed. Information on [facility] services given.Consent to share information with [facility] team, OB and legal researcher signed. Pt plans to deliver in [place] with [facility]. Currently with Dr. Shekhar Dyson.[employer]rentice is undecided. [facility] list provided and discussed importance ofselection prior [...] was spent counseling and coordinating care. Normal [facility] [employer] Authentication Interface Message Text Thank you for [...] size. There was a patent foramen ovale, [id number] shunt.Tricuspid valve:Normal tricuspid valve. There was normal [...] 60 minutes spent on the encounter. Normal [facility] Progress Noteon 07-18-2017 [employer] Authentication Interface Message Text [facility] MATERNAL- MEDICINE CONSULTReferring/Requestin g Provider: Christian Ivan [...] no palpitations. She usually doesnot see a black pickler, but did have a recent echo due [...] Stroke Maternal Grandmother Heart Disease Maternal Grandmother RI Clotting Disorder Maternal Grandfather Miscarriages / Stillbirths [...] a child 07/18/2017 Consider evaluation with director of social media marketing to assess for any needs duringpregnancy or after. Will have genetic consult with [facility] evaluation. cardiac anomaly complicating , antepartum 07/18/2017 Dilated aortic root seen on ultrasound along with large umbilical cordvarix, dolichocephaly DW Dr. Zazueta, verbal order to refer to [facility] Will be scheduled with pediatric cardiology. Also, patient and family members have a history of learning disabilities,including an individual learning plan in school. She will talk to her familymembers and bring as much information as is available for her genetics consult.She has transportation to [place] and is willing to be seen there by [facility].The total patient time of the visit was 30 minutes, of which was greater than50% of the time was spent counseling and coordinating care. Normal [facility] IGP W/hpv Rfx [id number] 05-07 Diagnosis: See Ref Lab Report Normal [facility] Comment on above: Order Comment: Thin Prep. Performed By: #### 2 [id number] ####KADEN BairdUylTqte5989 [place] [address] C Urineon 05-03-2017 C Urine Final Report: Normal skin alonso isolated Normal [facility] Comment on above: Performed By: #### 2 177369 ####KADEN BairdKbzLdrx1784 [place] [address] RPRon 05-03-2017 RPR Ql Non-Reactive Normal Non-Reacti ve [facility] Comment on above: Performed By: #### 2 666764 ####KADEN BairdXvaMkov9313 [place] [address] Hep Bs Agon 05-02-2017 BSA (Body Surface Area) Negative Normal Negative [facility] Comment on above: Result Comment: Perf ormed At: CB [facility] [address] [place], [place] [id number] Vincent PhD Ph:[phone] Performed By: #### 2 356109 ####KADEN BairdQsgFkuh6833 [place] [address] ABO/Rh Echoon 05-01-2017 ABO/Rh E Interp... Positive Normal [facility] Comment on above: Performed By: #### 2 532129 ####KADEN BairdEhlEhxf1971 [place] [address] Antibody Screen Cap...on Screen Interp... Negative Normal [facility] Comment on above: Performed By: #### 2 271012 ####KADEN AjlPnfm0555 [place] [address] Auto Diffon 05-01-2017 Basophils Auto #/vol (Bld) 0.0 E3/mcL Normal 0.0-0.2 [facility] Comment on above: Order Comment: Order Added by Discern Expert. Performed By: #### 2 893280 ####KADEN Urinalysis Manual If[address]cfpdvy[address] [place] [address] 15789 Basophils/100 WBC Auto (Bld) 0.4 % Normal 0.0-2.0 [facility] Comment on above: Order Comment: Order Added by Discern Expert. Performed By: #### 2 804998 ####KADEN Urinalysis Manual Qrwrls[address]uv[address] [place] [address] 14807 Eos Absolute 0.1 E3/mcL Normal 0.0-0.7 [facility] Comment on above: Order Comment: Order Added by Discern Expert. Performed By: #### 2 236545 ####KADEN Urinalysis Manual Weldiwtrkk[address] [place] [address] 43089 Eosinophils/100 leukocytes 0.7 % Normal 0.0-11.0 [facility] Comment on above: Order Comment: Order Added by Discern Expert. Performed By: #### 2 382890 ####KADEN Urinalysis Manual [address]mpykk[address] [place] [address] 60650 Lymphocytes 1.8 E3/mcL Normal 1.2-3.4 [facility] Comment on above: Order Comment: Order Added by Discern Expert. Performed By: #### 2 896871 ####KADEN Urinalysis Manual Kolzbermak[address] [place] [address] 86071 Lymphocytes/100 leukocytes 17.1 % Low 20.0-55.0 [facility] Comment on above: Order Comment: Order Added by Discern Expert. Performed By: #### 2 500710 ####KADEN Urinalysis Manual Mtrrhcxqqf[address] [place] [address] 6[address] Tyrrell Absolute 0.5 E3/mcL Normal 0.0-0.7 [facility] Comment on above: Order Comment: Order Added by Discern Expert. Performed By: #### 2 847877 ####KADEN Urinalysis Manual Fcugobgoql[address] [place] [address] Monocytes/100 leukocytes 5.0 % Normal 0.0-10.0 [facility] Comment on above: Order Comment: Order Added by Discern Expert. Performed By: #### 2 324330 ####KADEN Urinalysis Manual Dtztgtciua[address] [place] [address] Neutro Absolute 8.0 E3/mcL High 1.4-6.5 [facility] Comment on above: Order Comment: Order Added by Discern Expert. Performed By: #### 2 904607 ####KADEN Urinalysis Manual Zsloitzppv[address] [place] [address] Neutro Auto 76.8 % High 37.0-75.0 [facility] Comment on above: Order Comment: Order Added by Discern Expert. Performed By: #### 2 935227 ####KADEN Urinalysis Manual Xwammipvdr[address] [place] [address] CBC w/ Auto Diffon 7 Erythrocyte distribution width Auto Ratio (RBC) 15.2 % High 11.5-14.5 [facility] Comment on above: Performed By: #### 2 140113 ####KADEN Urinalysis Manual I[address]kzdsgsf[address] [place] [address] Erythrocytes (RBC) 4.90 E6/mcL Normal 3.90-5.40 [facility] Comment on above: Performed By: #### 2 852833 ####KADEN Urinalysis Manual Lbgzkmohuf[address] [place] [address] Hematocrit (HCT) 41.1 % Normal 36.0-48.0 [facility] Comment on above: Performed By: #### 2 624536 ####KADEN Urinalysis Manual Snfbgwfwzc67[address] [place] [address] Hemoglobin mass conc (Bld) 13.5 g/dL Normal 12.0-16.0 [facility] Comment on above: Performed By: #### 2 603872 ####KADEN Urinalysis Manual Lujdzlszrz[address] [place] [address] MCH 27.5 pg Normal 27.0-31.0 [facility] Comment on above: Performed By: #### 2 691879 ####KADEN Urinalysis Manual Evfqnejjuf5904[address] [place] [address] MCHC mass conc (RBC) 32.8 g/dL Low 33.0-37.[address] [facility] Comment on above: Performed By: #### 2 699676 ####KADEN Urinalysis Manual Ensqnwzevo[address] [place] [address] MCV 83.9 fL Normal 78.0-100.0 [facility] Comment on above: Performed By: #### 2 122044 ####KADEN Urinalysis Manual Arxgeiiged[address] [place] [address] Platelet mean volume (PMV) 8.0 fL Normal 7.4-11.0 [facility] Comment on above: Performed By: #### 2 974344 ####KADEN Urinalysis Manual Lgeovimepb[address] [place] [address] Platelets 246 E3/mcL Normal 130-400 [facility] Comment on above: Performed By: #### 2 336834 ####KADEN Urinalysis Manual Trgsctmkmz87[address] [place] [address] WBC (Leukocytes) 10.4 E3/mcL Normal 3.6-11.0 [facility] Comment on above: Performed By: #### 2 055113 ####KADEN Urinalysis Manual Yzldewwcqf9[address] [place] [address] Chlamydia GC by PCRon 2016 Chlamydia by PCR. Not Detected Normal Not Detected [facility] Comment on above: Result Comment: Xper t CT/NG Assay performance has not been evaluated in patients less than 14 years of age. Performed By: #### 2 118649 ####KADEN ImfYjiy4599 [place] [id number] Gonorrhoeae by PCR Not Detected Normal Not Detected [facility] Comment on above: Result Comment: Xper t CT/NG Assay performance has not been evaluated in patients less than 14 years of age. Performed By: #### 2 322823 ####KADEN WbeWwlk1162 [place] [id number] HIV-1/2 Ag/Abon 05-01-2017 HIV-1/2 Ag/Ab Non-Reactive Normal Non-Reacti ve [facility] Comment on above: Performed By: #### 2 083939 ####KADEN Urinalysis Manual [place] [id number] Rubella IgG Lvlon 05-01-2017 Rubella IgG Lvl 50.8 (POS) Normal [facility] Comment on above: Result Comment: <10I U/ml NON REACTIVE: NOT [id number] IU/ml RUBELLA SPECIFIC AB PRESENT, EVALUATEFURTHER TO DETERMINE IMMUNE STATUS >15 IU/ml REACTIVE, IMMUNE Performed By: #### 2 232875 ####KADEN VieKomk8523 [place] [address] Auto Diffon 04-22-2017 Basophils Auto #/vol (Bld) 0.1 E3/mcL Normal 0.0-0.2 [facility] Comment on above: Order Comment: Order Added by Discern Expert. Performed By: #### 2 975644 ####KADEN [place] [address] Basophils/100 WBC Auto (Bld) 0.6 % Normal 0.0-2.0 [facility] Comment on above: Order Comment: Order Added by Discern Expert. Performed By: #### 2 855757 ####KADEN Urinalysis Manual [address] [address] Eos Absolute 0.0 E3/mcL Normal 0.0-0.7 [facility] Comment on above: Order Comment: Order Added by Discern Expert. Performed By: #### 2 287850 ####KADEN Urinalysis Manual [address]eljoa[address] [place] [address] 24135 Eosinophils/100 leukocytes 0.2 % Normal 0.0-11.0 [facility] Comment on above: Order Comment: Order Added by Discern Expert. Performed By: #### 2 787120 ####KADEN Urinalysis Manual Trddevuaew[address] [place], [place] [address] Lymphocytes 1.5 E3/mcL Normal 1.2-3.4 [facility] Comment on above: Order Comment: Order Added by Discern Expert. Performed By: #### 2 720094 ####KADEN Urinalysis Manual Miatzbceab[address] [place] [address] 88089 Lymphocytes/100 leukocytes 10.8 % Low 20.0-55.0 [facility] Comment on above: Order Comment: Order Added by Discern Expert. Performed By: #### 2 981538 ####KADEN Urinalysis Manual Uvwzsstnqt[address] [place] [address] Tyrrell Absolute 0.6 E3/mcL Normal 0.0-0.7 [facility] Comment on above: Order Comment: Order Added by Discern Expert. Performed By: #### 2 405332 ####KADEN Urinalysis Manual Mmhvdokbms[address] [place] [address] Monocytes/100 leukocytes 4.4 % Normal 0.0-10.0 [facility] Comment on above: Order Comment: Order Added by Discern Expert. Performed By: #### 2 891969 ####KADEN Urinalysis Manual H[address]zcvkzmpa[address] [place] [address] Neutro Absolute 11.3 E3/mcL High 1.4-6.5 [facility] Comment on above: Order Comment: Order Added by Discern Expert. Performed By: #### 2 696894 ####KADEN Urinalysis Manual Sjgvfmngtk[address] [place] [address] Neutro Auto 84.0 % High 37.0-75.0 [facility] Comment on above: Order Comment: Order Added by Discern Expert. Performed By: #### 2 073980 ####KADEN Urinalysis Manual Alrgenuzoj[address] [place] [address] BMPon 04-22-2017 BUN/Creatinine Ratio Unable to calc Normal 5.4-30.0 [facility] Comment on above: Performed By: #### 2 491557 ####KADEN Urinalysis Manual Tngzuqvfgm[address] [place] [address] Creatinine mg/dL Low 0.6-1.3 [facility] Comment on above: Performed By: #### 2 054652 ####KADEN Urinalysis Manual Fdvcbjvdrr39[address] [place] [address] Urea nitrogen 7 mg/dL Normal 7-18 [facility] Comment on above: Performed By: #### 2 827193 ####KADEN Urinalysis Manual Oallecpktd0447 [place] [address] Calcium 9.6 mg/dL Normal 8.4-10.2 [facility] Comment on above: Performed By: #### 2 963657 ####KADEN Urinalysis Manual Whomzxpjja7128 [place] [address] Chloride 103 mmol/L Normal 98-107 [facility] Comment on above: Performed By: #### 2 491434 ####KADEN Urinalysis Manual Fgjerypxbw7014 [place] [address] CO2 21.7 mmol/L Low 24.0-30.0 [facility] Comment on above: Performed By: #### 2 059695 ####KADEN Urinalysis Manual Phkpqlxjqy4[address] [place] [address] Glucose mass conc 89 mg/dL Normal 70-99 [facility] Comment on above: Performed By: #### 2 143287 ####KADEN Urinalysis Manual Alhbozfwtm[address] [place] [address] Potassium molar conc 3.6 mmol/L Normal 3.5-5.[address] [facility] Comment on above: Performed By: #### 2 044682 ####KADEN Urinalysis Manual Zdfshevyso[address] [place] [address] Sodium 136 mmol/L Normal 136-145 [facility] Comment on above: Performed By: #### 2 574274 ####KADEN Urinalysis Manual [address]tjxglvlgq[address] [place], [place] [address] CBC w/ Auto Diffon 7 Erythrocyte distribution width Auto Ratio (RBC) 14.8 % High 11.5-14.5 [facility] Comment on above: Performed By: #### 2 070069 ####KADEN Urinalysis Manual Vlhezpwqtt3[address] [place], [place] [address] Erythrocytes (RBC) 4.96 E6/mcL Normal 3.90-5.40 [facility] Comment on above: Performed By: #### 2 790824 ####KADEN Urinalysis Manual Arnomnnfoh[address] [place] [address] Hematocrit (HCT) 40.9 % Normal 36.0-48.0 [facility] Comment on above: Performed By: #### 2 981551 ####KADEN Urinalysis Manual Wfmhpsjvgr[address] [place] [address] Hemoglobin mass conc (Bld) 13.5 g/dL Normal 12.0-16.0 [facility] Comment on above: Performed By: #### 2 737655 ####KADEN Urinalysis Manual Pkdqfpicji[address] [place] [address] MCH 27.2 pg Normal 27.0-31.0 [facility] Comment on above: Performed By: #### 2 597148 ####KADEN Urinalysis Manual Ogchhjnqol[address] [place] [address] MCHC mass conc (RBC) 33.0 g/dL Normal 33.0-37.[address] [facility] Comment on above: Performed By: #### 2 463122 ####KADEN Urinalysis Manual Flatrztjqh7664[address] [place] [address] MCV 82.4 fL Normal 78.0-100.0 [facility] Comment on above: Performed By: #### 2 787436 ####KADEN Urinalysis Manual Ylngkzqsct[address] [place] [address] Platelet mean volume (PMV) 8.0 fL Normal 7.4-11.0 [facility] Comment on above: Performed By: #### 2 460052 ####KADEN Urinalysis Manual Klidtwfbnr[address] [place] [address] Platelets 237 E3/mcL Normal 130-400 [facility] Comment on above: Performed By: #### 2 289779 ####KADEN Urinalysis Manual Tlpqbuyyuz[address] [place] [address] WBC (Leukocytes) 13.5 E3/mcL High 3.6-11.0 [facility] Comment on above: Performed By: #### 2 143768 ####KADEN Urinalysis Manual Djubwdfdyj[address] [place] [address] UA Completeon 04-22-2017 UA Blood Negative Normal Negative [facility] Comment on above: Performed By: #### 2 867788 ####KADEN Urinalysis Manual Yggwppumpg2126 [place] [address] UA Ascorbic Acid 40 mg/dL High <=19 [facility] Comment on above: Performed By: #### 2 939876 ####KADEN Urinalysis Manual Ngcqkddjug8718 [place] [address] UA Bacteria 3+ /HPF Abnormal None [facility] Comment on above: Performed By: #### 2 242865 ####KADEN Urinalysis Manual Bkjaurbrbu[address] [place] [address] UA Clarity SltCloudy Abnormal Clear [facility] Comment on above: Performed By: #### 2 163751 ####KADEN Urinalysis Manual Hcvblodmdj[address] [place] [address] UA Leuk Est Negative Normal Negative [facility] Comment on above: Performed By: #### 2 358932 ####KADEN Urinalysis Manual Hylplugrlt[address] [place] [address] UA Mucous Few Abnormal Trace [facility] Comment on above: Performed By: #### 2 910751 ####KADEN Urinalysis Manual Yaxhkfvnrm[address] [place] [address] 714[address] UA Nitrite Negative Normal Negative [facility] Comment on above: Performed By: #### 2 295897 ####KADEN Urinalysis Manual Pympnhglpv[address] [place] [address] 37071 UA pH 8.0 Normal 4.6-8.0 [facility] Comment on above: Performed By: #### 2 193326 ####KADEN Urinalysis Manual Eewydlnhyk[address] [place] [address] UA Protein Negative Normal Negative [facility] Comment on above: Performed By: #### 2 508498 ####KADEN Urinalysis Manual Fcurwgpenu[address] [place] [address] UA Spec Grav 1.012 Normal 1.003-1.03 0 [facility] Comment on above: Performed By: #### 2 792345 ####KADEN Urinalysis Manual Zjgzhyqylc[address] [place] [address] UA Squam Epithelial 0-5 Normal 0-5 [facility] Comment on above: Performed By: #### 2 698600 ####KADEN Urinalysis Manual Sqmevggzfu8338 [place] [address] UA Urobilinogen Negative Normal [facility] Comment on above: Performed By: #### 2 518394 ####KADEN Urinalysis Manual Qayszkxcwg2839 [place] [address] UA WBC 0-5 Normal 0-5 [facility] Comment on above: Performed By: #### 2 133307 ####KADEN Urinalysis Manual Ljqgeyjadq0477 [place] [address] Urine, color Yellow Normal Yellow [facility] Comment on above: Performed By: #### 2 755154 ####KADEN Urinalysis Manual [address]zb[address]wrp[address] [place] [address] 18[address] Urine, glucose Negative Normal Negative [facility] Comment on above: Performed By: #### 2 324094 ####KADEN Urinalysis Manual Banzuitbdg[address] [place] [address] Urine, ketones presence 1+ Abnormal Negative [facility] Comment on above: Performed By: #### 2 820586 ####KADEN Urinalysis Manual Aflyourzub[address] [place] [address] Urine, urobilinogen Negative Normal Negative [facility] Comment on above: Performed By: #### 2 469802 ####KADEN Urinalysis Manual Ubrkhxmhlf[address] [place] [address] eGFRon 04-22-2017 eGFR AA >60 Normal [facility] Comment on above: Order Comment: Order added by Discern Expert. Performed By: #### 2 475810 ####KADEN Urinalysis Manual Allnyqkeew4400 [place] [address] eGFR (non-black) mL/min/{1.73_m2} Normal [facility] Comment on above: Order Comment: Order added by Discern Expert. Performed By: #### 2 435784 ####KADEN Urinalysis Manual Qxkuotaegi4274 [place] [address] C Urineon 04-20-2017 C Urine Final Report: Normal skin alonso isolated Normal [facility] Comment on above: Performed By: #### 2 248166 ####KADEN Urinalysis Manual Itixfckkki9796 [place] [address] BMPon 04-18-2017 BUN/Creatinine Ratio 15.0 ratio Normal 5.4-30.[address] [facility] Comment on above: Performed By: #### 2 965551 ####KADEN BairdTdtYcry5392 [place] [address] Creatinine 0.6 mg/dL Normal 0.6-1.3 [facility] Comment on above: Performed By: #### 2 092583 ####KADEN BairdVozYknz5853 [place] [address] Urea nitrogen 9 mg/dL Normal 7-18 [facility] Comment on above: Performed By: #### 2 241641 ####KADEN BairdIkcMvbi2570 [place] [address] Calcium 9.6 mg/dL Normal 8.4-10.2 [facility] Comment on above: Performed By: #### 2 563383 ####KADEN BairdGjoGsdy3462 [place] [address] Chloride 102 mmol/L Normal 98-107 [facility] Comment on above: Performed By: #### 2 135104 ####KADEN BairdFmtZxdf9778 [place] [address] CO2 23.3 mmol/L Low 24.0-30.0 [facility] Comment on above: Performed By: #### 2 923285 ####KADEN BairdDqzMuou8050 [place] [address] Glucose mass conc 93 mg/dL Normal 70-99 [facility] Comment on above: Performed By: #### 2 654549 ####KADEN BairdHrfPcgd8221 [place] [address] Potassium molar conc 3.5 mmol/L Normal 3.5-5.[address] [facility] Comment on above: Performed By: #### 2 769948 ####KADEN BairdBfrLapr4012 [place] [address] Sodium 136 mmol/L Normal 136-145 [facility] Comment on above: Performed By: #### 2 989547 ####KADEN GonYyyg1816 [place] [address] UA Completeon 04-18-2017 UA Blood Negative Normal Negative [facility] Comment on above: Performed By: #### 2 081628 ####KADEN Urinalysis Manual [address]flkz[address] [place] [address] UA Amorph Chastity 2+ /HPF Abnormal None [facility] Comment on above: Performed By: #### 2 281510 ####KADEN Urinalysis Manual Dywpyefhyj[address] [place] [address] UA Ascorbic Acid 40 mg/dL High <=19 [facility] Comment on above: Performed By: #### 2 230808 ####KADEN Urinalysis Manual Dezrmyfdsn[address] [place] [address] UA Clarity Cloudy Abnormal Clear [facility] Comment on above: Performed By: #### 2 300138 ####KADEN Urinalysis Manual Zqbxakgeik[address] [place] [address] UA Leuk Est Negative Normal Negative [facility] Comment on above: Performed By: #### 2 805669 ####KADEN Urinalysis Manual Rbxjzxqfuv[address] [place] [address] UA Mucous Trace Abnormal Trace [facility] Comment on above: Performed By: #### 2 666721 ####KADEN Urinalysis Manual Cmgznmypby[address] [place] [address] UA Nitrite Negative Normal Negative [facility] Comment on above: Performed By: #### 2 656287 ####KADEN Urinalysis Manual Sakjinctoc[address] [place] [address] UA pH 7.0 Normal 4.6-8.0 [facility] Comment on above: Performed By: #### 2 843367 ####KADEN Urinalysis Manual Wiyxxsjqoe[address] [place] [address] UA Protein Negative Normal Negative [facility] Comment on above: Performed By: #### 2 869546 ####KADEN Urinalysis Manual Xqcvsytqkc[address] [place] [address] UA Spec Grav 1.018 Normal 1.003-1.03 0 [facility] Comment on above: Performed By: #### 2 247696 ####KADEN Urinalysis Manual Mjnbddqlag9219 [place] [address] UA Squam Epithelial 0-5 Normal 0-5 [facility] Comment on above: Performed By: #### 2 421454 ####KADEN Urinalysis Manual X[address]ziquhwlq[address] [place] [address] UA Urobilinogen Negative Normal [facility] Comment on above: Performed By: #### 2 950624 ####KADEN Urinalysis Manual Molfvtujaw[address] [place] [address] Urine, color Yellow Normal Yellow [facility] Comment on above: Performed By: #### 2 246227 ####KADEN Urinalysis Manual Wxsdugtvnk[address] [place] [address] Urine, glucose Negative Normal Negative [facility] Comment on above: Performed By: #### 2 412044 ####KADEN Urinalysis Manual Zsjtauaiot99[address] [place] [address] Urine, ketones presence 2+ Abnormal Negative [facility] Comment on above: Performed By: #### 2 [id number] ####KADEN Urinalysis Manual [address] [place] [address] Urine, urobilinogen Negative Normal Negative [facility] Comment on above: Performed By: #### 2 [id number] ####KADEN Urinalysis Manual [address] [place] [address] eGFRon 04-18-2017 eGFR (non-black) mL/min/{1.73_m2} Normal [facility] Comment on above: Order Comment: Order added by Discern Expert. Performed By: #### 1 [id number] ####KADEN ZbiGsbs2163 [place] [address] eGFR AA >60 Normal [facility] Comment on above: Order Comment: Order added by Discern Expert. Performed By: #### 1 [id number] ####KADEN AsnYdal8843 [place] [address] Auto Diffon 04-11-2017 Basophils Auto #/vol (Bld) 0.1 E3/mcL Normal 0.0-0.2 [facility] Comment on above: Order Comment: Order Added by Discern Expert. Performed By: #### 2 [id number] ####KADEN BairdMslPqxc0676 [place] [address] Basophils/100 WBC Auto (Bld) 0.7 % Normal 0.0-2.0 [facility] Comment on above: Order Comment: Order Added by Discern Expert. Performed By: #### 2 [id number] ####KADEN BairdLjeEqmi2768 [place] [address] Eos Absolute 0.0 E3/mcL Normal 0.0-0.7 [facility] Comment on above: Order Comment: Order Added by Discern Expert. Performed By: #### 2 [id number] ####KADEN BairdCafJkoc8920 [place] [address] Eosinophils/100 leukocytes 0.1 % Normal 0.0-11.0 [facility] Comment on above: Order Comment: Order Added by Discern Expert. Performed By: #### 2 [id number] ####KADEN BairdZpwVsae7174 [place] [address] Lymphocytes 1.5 E3/mcL Normal 1.2-3.4 [facility] Comment on above: Order Comment: Order Added by Discern Expert. Performed By: #### 2 [id number] ####KADEN BairdXurNxpi5247 [place] [address] Lymphocytes/100 leukocytes 17.2 % Low 20.0-55.0 [facility] Comment on above: Order Comment: Order Added by Discern Expert. Performed By: #### 2 [id number] ####KADEN BairdLuwIzyf6650 [place] [address] Tyrrell Absolute 0.6 E3/mcL Normal 0.0-0.7 [facility] Comment on above: Order Comment: Order Added by Discern Expert. Performed By: #### 2 [id number] ####KADEN PtsUrol5321 [place] [address] Monocytes/100 leukocytes 6.6 % Normal 0.0-10.0 [facility] Comment on above: Order Comment: Order Added by Discern Expert. Performed By: #### 2 [id number] ####KADEN PgxYjvj8320 [place] [address] Neutro Absolute 6.7 E3/mcL High 1.4-6.5 [facility] Comment on above: Order Comment: Order Added by Discern Expert. Performed By: #### 2 [id number] ####KADEN Luceroo1025 [place] [address] Neutro Auto 75.4 % High 37.0-75.0 [facility] Comment on above: Order Comment: Order Added by Discern Expert. Performed By: #### 2 [id number] ####KADEN Lucreoo1025 [place] [address] BMPon 04-11-2017 BUN/Creatinine Ratio 12.9 ratio Normal 5.4-30.[address] [facility] Comment on above: Performed By: #### 2 [id number] ####KADEN Bai1025 [place] [address] Creatinine 0.7 mg/dL Normal 0.6-1.3 [facility] Comment on above: Performed By: #### 2 [id number] ####KADEN RanDhab9937 [place] [address] Urea nitrogen 9 mg/dL Normal 7-18 [facility] Comment on above: Performed By: #### 2 [id number] ####KADEN EnmRstn8479 [place] [address] Calcium 9.5 mg/dL Normal 8.4-10.2 [facility] Comment on above: Performed By: #### 2 557258 ####KADEN CbpGmdd0902 [place] [address] Chloride 105 mmol/L Normal 98-107 [facility] Comment on above: Performed By: #### 2 505592 ####KADEN JldVtlk2531 [place] [address] CO2 22.5 mmol/L Low 24.0-30.0 [facility] Comment on above: Performed By: #### 2 527198 ####KADEN SavMubc0591 [place] [address] Glucose mass conc 92 mg/dL Normal 70-99 [facility] Comment on above: Performed By: #### 2 [id number] ####KADENMorelia BaiKfcIyje9210 [place] [address] Potassium molar conc 3.6 mmol/L Normal 3.5-5.[address] [facility] Comment on above: Performed By: #### 2 500272 ####KADEN DxpNgmd9484 [place] [address] Sodium 137 mmol/L Normal 136-145 [facility] Comment on above: Performed By: #### 2 081970 ####KADEN DtcRcor7055 [place] [address] BhCG Quanton 04-11-2017 Beta hCG Qnt 8564.0 mIU/m Normal [facility] Comment on above: Result Comment: FEMA LE (NON-) & MALE <3 BORDERLINE 3 - 5 SUGGEST REPEAT TESTING FEMALE () 1 D - 1 WK 5 - 50 1 - 2 WK 50 - 500 2 - 3 WK 100 - 5000 3 - 4 WK 500 - 39891 4 - 5 WK 1000 - 35581 5 - 6 WK 51373 - 621383 6 - 8 WK 8[address] - 838396 2 - 3 [place] [address] - 343627 Performed By: #### 2 055404 ####KADEN EltWyjy5764 [place] [address] CBC w/ Auto Diffon 7 Erythrocyte distribution width Auto Ratio (RBC) 13.9 % Normal 11.5-14.5 [facility] Comment on above: Performed By: #### 2 [id number] ####KADENMorelia LuceroSevEpsl4230 [place] [address] Erythrocytes (RBC) 4.63 E6/mcL Normal 3.90-5.40 [facility] Comment on above: Performed By: #### 2 117181 ####KADENMorelia LuceroCvnJhft2361 [place] [address] Hematocrit (HCT) 38.2 % Normal 36.0-48.0 [facility] Comment on above: Performed By: #### 2 736336 ####KADENMorelia LuceroNrtCybt1893 [place] [address] Hemoglobin mass conc (Bld) 12.6 g/dL Normal 12.0-16.0 [facility] Comment on above: Performed By: #### 2 245817 ####KADENMorelia LuceroShjNrit7907 [place] [address] MCH 27.2 pg Normal 27.0-31.0 [facility] Comment on above: Performed By: #### 2 393588 ####KADEN Luceroo1025 [place] [address] MCHC mass conc (RBC) 33.0 g/dL Normal 33.0-37.[address] [facility] Comment on above: Performed By: #### 2 783064 ####KADEN Luceroo1025 [place] [address] MCV 82.6 fL Normal 78.0-100.0 [facility] Comment on above: Performed By: #### 2 412878 ####KADEN Luceroo1025 [place] [address] Platelet mean volume (PMV) 8.0 fL Normal 7.4-11.0 [facility] Comment on above: Performed By: #### 2 [id number] ####KADEN Luceroo1025 [place] [address] Platelets 233 E3/mcL Normal 130-400 [facility] Comment on above: Performed By: #### 2 382924 ####KADEN BairdVnkArrm7828 [place] [address] WBC (Leukocytes) 9.0 E3/mcL Normal 3.6-11.0 [facility] Comment on above: Performed By: #### 2 [id number] ####KADEN Luceroo1025 [place] [id number] UA Completeon 04-11-2017 UA Blood Negative Normal Negative [facility] Comment on above: Result Comment: High concentration of Ascorbic Acid present in urine. This may cause False Negative Occ Blood. Review microscopic results and patient's clinical symptoms. Performed By: #### 8 [id number] ####KADEN Urinalysis Automated Fkmwwldlht3948 [place] [address] UA Amorph Chastity 1+ /HPF Abnormal None [facility] Comment on above: Performed By: #### 8 [id number] ####KADEN Urinalysis Automated Gfxjgjyhjx4407 [place] [address] UA Ascorbic Acid 40 mg/dL High <=19 [facility] Comment on above: Performed By: #### 8 [id number] ####KADEN Urinalysis Automated Awqzdhyppo8734 [place] [address] UA Bacteria Trace Abnormal None [facility] Comment on above: Performed By: #### 8 [id number] ####KADEN Urinalysis Automated Fzdvbarkga7597 [place] [address] UA Clarity Cloudy Abnormal Clear [facility] Comment on above: Performed By: #### 8 [id number] ####KADEN Urinalysis Automated [address] [place] [address] UA Leuk Est Negative Normal Negative [facility] Comment on above: Performed By: #### 8 [id number] ####KADEN Urinalysis Automated [address]bqh[address] [place] [address] UA Mucous Few Abnormal Trace [facility] Comment on above: Performed By: #### 8 [id number] ####KADEN Urinalysis Automated Njhwo[address]cbz[address] [place] [address] UA Nitrite Negative Normal Negative [facility] Comment on above: Performed By: #### 8 [id number] ####KADEN Urinalysis Automated Pkeqgzedoy[address] [place] [address] UA pH 7.0 Normal 4.6-8.0 [facility] Comment on above: Performed By: #### 8 [id number] ####KADEN Urinalysis Automated C[address]ir[address] [place] [address] UA Protein Negative Normal Negative [facility] Comment on above: Performed By: #### 8 [id number] ####KADEN Urinalysis Automated Z[address]slbeiao[address] [place] [address] UA Spec Grav 1.025 Normal 1.003-1.03 0 [facility] Comment on above: Performed By: #### 8 [id number] ####KADEN Urinalysis Automated Sdvazkhieg[address] [place] [address] UA Squam Epithelial 5-10 Abnormal 0-5 [facility] Comment on above: Performed By: #### 8 [id number] ####KADEN Urinalysis Automated Xswqbickqv[address] [place] [address] UA Urobilinogen 2.0 mg/dL Abnormal [facility] Comment on above: Performed By: #### 8 [id number] ####KADEN Urinalysis Automated Yjhaarqnrp0076 [place] [address] Urine, color Yellow Normal Yellow [facility] Comment on above: Performed By: #### 8 [id number] ####KADEN Urinalysis Automated Ibwksblist2797 [place] [address] Urine, erythrocytes 0-3 Normal 0-3 [facility] Comment on above: Performed By: #### 8 [id number] ####KADEN Urinalysis Automated Afysmmjmir4110 [place] [address] Urine, glucose Negative Normal Negative [facility] Comment on above: Performed By: #### 8 [id number] ####KADEN Urinalysis Automated Cfaxzlwgxq64[address] [place] [address] Urine, ketones presence 2+ Abnormal Negative [facility] Comment on above: Performed By: #### 8 [id number] ####KADEN Urinalysis Automated Tvrzizpdvu[address] [place] [address] Urine, urobilinogen Negative Normal Negative [facility] Comment on above: Performed By: #### 8 [id number] ####KADEN Urinalysis Automated Glghvoczdi[address] [place] [address] eGFRon 04-11-2017 eGFR (non-black) mL/min/{1.73_m2} Normal [facility] Comment on above: Order Comment: Order added by Discern Expert. Performed By: #### 1 [id number] ####KADEN IasFawl0353 [place] [address] eGFR AA >60 Normal [facility] Comment on above: Order Comment: Order added by Discern Expert. Performed By: #### 1 [id number] ####KADEN UiuCbuc7383 [place] [address] U BhCG Qlton 03-20-2017 HCG.beta subunit Qn Negative Normal Neg [facility] Comment on above: Performed By: #### 2 [id number] ####KADEN Urinalysis Manual Fvizoduiel6560 [place] [id number] UA Completeon 03-20-2017 UA Blood Negative Normal Negative [facility] Comment on above: Performed By: #### 8 [id number] ####KADEN Urinalysis Automated Ynsxegvdrn1152 [place] [address] UA Amorph Chastity 1+ /HPF Abnormal None [facility] Comment on above: Performed By: #### 8 [id number] ####KADEN Urinalysis Automated Gwqadhexth0359 [place] [address] UA Bacteria 2+ /HPF Abnormal None [facility] Comment on above: Performed By: #### 8 [id number] ####KADEN Urinalysis Automated [address] [place] [address] UA Clarity Cloudy Abnormal Clear [facility] Comment on above: Performed By: #### 8 [id number] ####KADEN Urinalysis Automated [address]beonwcfb[address] [place] [address] UA Leuk Est 1+ Abnormal Negative [facility] Comment on above: Performed By: #### 8 [id number] ####KADEN Urinalysis Automated Zxjooewmbu[address] [place] [address] UA Mucous Occasional Abnormal Trace [facility] Comment on above: Performed By: #### 8 [id number] ####KADEN Urinalysis Automated Xcfvspzdua[address] [place] [address] UA Nitrite Negative Normal Negative [facility] Comment on above: Performed By: #### 8 [id number] ####KADEN Urinalysis Automated Ezxhtfytye[address] [place] [address] UA pH 6.0 Normal 4.6-8.0 [facility] Comment on above: Performed By: #### 8 [id number] ####KADEN Urinalysis Automated Qhreoejmwi[address] [place] [address] UA Protein 1+ Abnormal Negative [facility] Comment on above: Performed By: #### 8 [id number] ####KADEN Urinalysis Automated Iberdofxik[address] [place] [address] UA Spec Grav 1.019 Normal 1.003-1.03 0 [facility] Comment on above: Performed By: #### 8 [id number] ####KADEN Urinalysis Automated [address]tkcofwdvy65[address] [place] [address] UA Squam Epithelial 5-10 Abnormal 0-5 [facility] Comment on above: Performed By: #### 8 [id number] ####KADEN Urinalysis Automated Hqxgsgyrvg9308 [place] [address] UA Urobilinogen Negative Normal [facility] Comment on above: Performed By: #### 8 [id number] ####KADEN Urinalysis Automated Gyxxpwjtce0041 [place] [address] UA WBC >50 Abnormal 0-5 [facility] Comment on above: Performed By: #### 8 [id number] ####KADEN Urinalysis Automated Rrobtcfmbr5297 [place] [address] Urine, color Yellow Normal Yellow [facility] Comment on above: Performed By: #### 8 [id number] ####KADEN Urinalysis Automated Acrcmmtpbb1069 [place] [address] Urine, erythrocytes 5-10 Abnormal 0-3 [facility] Comment on above: Performed By: #### 8 [id number] ####KADEN Urinalysis Automated Ckvrjijwht5695 [place] [address] Urine, glucose Negative Normal Negative [facility] Comment on above: Performed By: #### 8 [id number] ####KADEN Urinalysis Automated Cfjdyhtsxe4838 [place] [address] Urine, ketones presence Negative Normal Negative [facility] Comment on above: Performed By: #### 8 [id number] ####KADEN Urinalysis Automated Wbirpwswrc1093 [place] [address] Urine, urobilinogen Negative Normal Negative [facility] Comment on above: Performed By: #### 8 [id number] ####KADEN Urinalysis Automated Pvwhegqqtp6079 [place] [address] Vital Signs Date Time Vital Sign Value Performing Clinician Facility 07-18-2023 10:30-0500 Body mass index (BMI) [Ratio] 26.7 kg/m2 [employer] Work Phone: [facility] 07-18-2023 10:30-0500 Body weight 75.03 kg [employer] Work Phone: [facility] 07-18-2023 10:30-0500 Diastolic blood pressure 68 mm[Hg] [employer] Work Phone: [facility] 07-18-2023 10:30-0500 Systolic blood pressure 106 mm[Hg] Cuong Diana DO Work Phone: [facility] 02-11-2023 14:13-0400 Body height 165.1 cm PA-Ventura Wyatt Work Phone: [facility] 02-11-2023 14:13-0400 Body temperature 97.9 [degF] PA-C Andie Wyatt Work Phone: [facility] 02-11-2023 14:13-0400 Body weight 70.55 kg PA-C Andie Wyatt Work Phone: [facility] 02-11-2023 14:13-0400 Diastolic blood pressure 80 mm[Hg] PA-Ventura Wyatt Work Phone: [facility] 02-11-2023 14:13-0400 Heart rate 60 /min FERMIN-Ventura Wyatt Work Phone: [facility] 02-11-2023 14:13-0400 Respiratory rate 15 /min FERMIN-C Andie Waytt Work Phone: [facility] 02-11-2023 14:13-0400 SaO2% (BldA) [Mass fraction] 99 % FERMIN-Ventura Wyatt Work Phone: [facility] 02-11-2023 14:13-0400 Systolic blood pressure 134 mm[Hg] PA-Ventura Wyatt Work Phone: [facility] 02-08-2023 12:36-0400 Body height 165.1 cm PA-Ventura Wyatt Work Phone: [facility] 02-08-2023 12:36-0400 Body temperature 98.2 [degF] FERMIN-Ventura Wyatt Work Phone: [facility] 02-08-2023 12:36-0400 Body weight 72.57 kg PA-Ventura Wyatt Work Phone: [facility] 02-08-2023 12:36-0400 Diastolic blood pressure 84 mm[Hg] PA-Ventura Wyatt Work Phone: [facility] 02-08-2023 12:36-0400 Heart rate 74 /min PA-Ventura Wyatt Work Phone: [facility] 02-08-2023 12:36-0400 Respiratory rate 15 /min SADAF Wyatt Work Phone: [facility] 02-08-2023 12:36-0400 SaO2% (BldA) [Mass fraction] 98 % PA-C Andie Wyatt Work Phone: [facility] 02-08-2023 12:36-0400 Systolic blood pressure 150 mm[Hg] PA-Ventura Wyatt Work Phone: [facility] 12-19-2022 14:43-0400 Body temperature 96.9 [degF] SADAF Wyatt Work Phone: [facility] 12-19-2022 14:43-0400 Diastolic blood pressure 74 mm[Hg] PA-Ventura Wyatt Work Phone: [facility] 12-19-2022 14:43-0400 Heart rate 59 /min SADAF Wyatt Work Phone: [facility] 12-19-2022 14:43-0400 Respiratory rate 18 /min SADAF Wyatt Work Phone: [facility] 12-19-2022 14:43-0400 SaO2% (BldA) [Mass fraction] 100 % PA-Ventura Wyatt Work Phone: [facility] 12-19-2022 14:43-0400 Systolic blood pressure 115 mm[Hg] PA-Ventura Wyatt Work Phone: [facility] 12-19-2022 14:00-0400 Diastolic blood pressure 89 mm[Hg] PA-Ventura Wyatt Work Phone: [facility] 12-19-2022 14:00-0400 Heart rate 79 /min PA-C Andie Wyatt Work Phone: [facility] 12-19-2022 14:00-0400 Respiratory rate 16 /min PA-C Andie Wyatt Work Phone: [facility] 12-19-2022 14:00-0400 SaO2% (BldA) [Mass fraction] 99 % PA-C Andie Wyatt Work Phone: [facility] 12-19-2022 14:00-0400 Systolic blood pressure 150 mm[Hg] PA-C Andie Wyatt Work Phone: [facility] 12-19-2022 03:30-0400 Body height 165.1 cm PA-C Andie Wyatt Work Phone: [facility] 12-19-2022 03:30-0400 Body weight 72.2 kg PA-C Andie Wyatt Work Phone: [facility] 12-18-2022 23:07-0400 Body height 165.1 cm PA-C Andie Wyatt Work Phone: [facility] 12-18-2022 23:07-0400 Body weight 74.2 kg PA-Ventura Wyatt Work Phone: [facility] 12-18-2022 23:05-0400 Body temperature 98.5 [degF] FERMIN-Ventura Wyatt Work Phone: [facility] 08-20-2022 14:31-0500 Body height 165.1 cm PA-C Andie Wyatt Work Phone: [facility] 08-20-2022 14:31-0500 Body temperature 98.9 [degF] FERMIN-C Andie Wyatt Work Phone: [facility] 08-20-2022 14:31-0500 Body weight 71.55 kg PAZhao Wyatt Work Phone: [facility] 08-20-2022 14:31-0500 Diastolic blood pressure 87 mm[Hg] PA-C Andie Wyatt Work Phone: [facility] 08-20-2022 14:31-0500 Heart rate 97 /min PA-C Andie Wyatt Work Phone: [facility] 08-20-2022 14:31-0500 Respiratory rate 18 /min PA-C Andie Wyatt Work Phone: [facility] 08-20-2022 14:31-0500 SaO2% (BldA) [Mass fraction] 98 % PA-C Andie Wyatt Work Phone: [facility] 08-20-2022 14:31-0500 Systolic blood pressure 135 mm[Hg] PA-C Andie Wyatt Work Phone: [facility] 02-08-2022 03:06-0400 Body weight 68.[address] CUONG ORTIZ . [facility] Comment on above: Performed By: #### AFPMAT #### [facility] [address] [place] [address] Dr. Juan Antonio Ibarra 02-05-2022 18:24-0400 Body height 165.1 cm PA-C Andie Wyatt Work Phone: [facility] 02-05-2022 18:24-0400 Body temperature 98.3 [degF] PA-Ventura Wyatt Work Phone: [facility] 02-05-2022 18:24-0400 Body weight 67.9 kg PA-Ventura Wyatt Work Phone: [facility] 02-05-2022 18:24-0400 Diastolic blood pressure 68 mm[Hg] PA-Ventura Wyatt Work Phone: [facility] 02-05-2022 18:24-0400 Heart rate 92 /min PA-Ventura Wyatt Work Phone: [facility] 02-05-2022 18:24-0400 Respiratory rate 18 /min PA-Ventura Wyatt Work Phone: [facility] 02-05-2022 18:24-0400 SaO2% (BldA) [Mass fraction] 99 % SADAF Wyatt Work Phone: [facility] 02-05-2022 18:24-0400 Systolic blood pressure 125 mm[Hg] SADAF Wyatt Work Phone: [facility] Encounters Encounter Date Encounter Type Care Provider Facility Start: 10-28-2023 End: 10-28-2023 ambulatory CUONG DIANA Not Available Start: 10-14-2023 End: 10-14-2023 ambulatory CUONG DIANA Not Available Start: 09-30-2023 End: 09-30-2023 ambulatory CUONG DIANA Not Available Start: 09-12-2023 End: 09-12-2023 ambulatory CUONG DIANA Not Available Start: 08-15-2023 End: 08-15-2023 ambulatory [facility] Start: 08-15-2023 End: 08-15-2023 ambulatory CUONG DIANA Not Available Start: 07-22-2023 Documentation procedure Lucio HARPER Work Phone: [facility] Comment on above: Outgoing Ca ll [...] pre gnancy Start: 07-18-2023 End: 07-18-2023 ambulatory [facility] Start: 07-03-2023 End: 07-03-2023 ambulatory CUONG R [facility] Start: 07-03-2023 End: 07-03-2023 Telemedicine consultation with patient Rosaura BANKS Work Phone: [facility] Comment on above: Family history of ge netic disorder (Primary Dx); Genetic testing; Fetus with trisomy 13, single gestation Start: 06-20-2023 End: 06-20-2023 ambulatory BARB KRAMER Not Available Start: 05-23-2023 End: 05-23-2023 ambulatory CUONG ORTIZ Not Available Start: 04-16-2023 ambulatory Cesar Clayton acility:[facility] Start: 02-11-2023 End: 02-11-2023 Emergency department patient visit Johnson Valencia Facility:[facility] Start: 02-11-2023 End: 02-11-2023 Emergency department patient visit SADAF Wyatt Work Phone: [facility] Work Phone: Start: 02-08-2023 End: 02-08-2023 Emergency department patient visit Elle Rhodes Facility:[facility] Start: 02-08-2023 End: 02-08-2023 Emergency department patient visit SADAF Wyatt Work Phone: [facility] Work Phone: Start: 12-19-2022 End: 12-19-2022 ambulatory Arden Orozco Facility:[facility] Start: 12-19-2022 End: 12-19-2022 Evaluation and management of inpatient SADAF Wyatt Work Phone: [facility] Work Phone: Start: 12-19-2022 End: 12-19-2022 observation encounter SADAF Wyatt Work Phone: [facility] Work Phone: Start: 10-24-2022 End: 10-24-[address] CUONG ORTIZ . Facility: Start: 10-23-2022 Registered Recurring SADAF Wyatt Work Phone: [facility] Start: 08-20-2022 End: 08-20-2022 Emergency department patient visit Elle Rhodes Facility:[facility] Start: 08-20-2022 End: 08-20-2022 Emergency department patient visit SADAF Wyatt Work Phone: [facility] Work Phone: Start: 07-23-[address] CUONG ORTIZ . Facili ty:[facility] Start: 07-09-2022 End: 07-09-[address] CUONG ORTIZ . Facility: Start: 07-05-2022 End: 07-07-2022 Evaluation and management of inpatient DR CUONG ORTIZ . Facility: Start: 07-02-2022 End: 07-02-2022 [facility] Facility: Start: 06-28-2022 End: 06-28-[address] CUONG ORTIZ . Facility: Start: 06-21-2022 End: 06-21-2022 [facility] Facility:[facility] Start: 06-16-2022 End: 06-16-[address] [...] ORTIZ . Facility:[facility] Start: 05-24-2022 End: 05-24-2022 [facility] Facility:[facility] Start: 04-04-2022 End: 04-05-[address] CUONG ORTIZ . Facility:[facility] Start: 03-20-2022 End: 03-21-[address] CUONG ORTIZ . Facility:[facility] Start: 02-22-2022 End: 02-23-[address] CUONG ORTIZ . Facility:[facility] Start: 02-06-2022 End: 02-06-[address] CUONG ORTIZ . Facility:[facility] Start: 02-06-2022 End: 02-07-[address] CUONG ORTIZ . Facility:[facility] Start: 02-05-2022 End: 02-05-2022 Emergency department patient visit SADAF Wyatt Work Phone: [facility] Start: 12-26-2021 End: 12-27-[address] CUONG ORTIZ . Facility:[facility] Start: 12-07-2021 End: 12-08-[address] CUONG ORTIZ . Facility: Start: 12-27-2017 End: 12-27-2017 Patient encounter Christian Ivan Facility:[facility] Start: 12-12-2017 End: 12-12-2017 Emergency department patient visit Luke Barbosa Facility:[facility] Start: 12-12-2017 Patient encounter Facil [id number] Start: 12-07-2017 Evaluation and management of inpatient CLARA JAMA Facility:[facility] Start: 12-03-2017 Evaluation and management of inpatient CLARA JAMA Facility:[facility] Start: 12-03-2017 Patient encounter procedure CLARA JAMA Facility:[facility] Start: 12-02-2017 Evaluation and management of inpatient CLARA JAMA Facility:[facility] Start: 11-30-2017 End: 12-02-2017 Evaluation and management of inpatient CLARA TERESA JAMA [facility] Start: 11-30-2017 End: 11-30-2017 Patient encounter Salomon Nguyen Facility:[facility] Start: 11-30-2017 Patient encounter Facil [id number] Start: 11-28-2017 End: 11-28-2017 Patient encounter CLARA JAMA [facility] Start: 11-21-2017 End: 11-21-2017 Patient encounter OKSANA MASON [facility] Start: 11-21-2017 End: 11-21-2017 Patient encounter Juanita Cole Facility:[facility] Start: 11-20-2017 Patient encounter Facil [id number] Start: 11-17-2017 End: 11-17-2017 Patient encounter Christian Ivan Facility:[facility] Start: 11-16-2017 Patient encounter Facil [id number] Start: 11-07-2017 End: 11-07-2017 Patient encounter OKSANA AMADO [facility] Start: 10-31-2017 End: 10-31-2017 Patient encounter CLARA JAMA [facility] Start: 10-24-2017 End: 10-24-2017 Patient encounter MARCO ANTONIO ANTONIO [facility] Start: 10-16-2017 End: 10-16-2017 Patient encounter Christian Ivan Facility:[facility] Start: 10-08-2017 End: 10-08-[address] [facility] Start: 10-08-2017 End: 10-08-2017 Patient encounter OKSANA AMADO [facility] Start: 10-01-2017 End: 10-02-2017 Patient encounter Christian Ivan Facility:[facility] Start: 09-10-2017 End: 09-11-2017 Patient encounter LUIS DANIEL VALERI [facility] Start: 09-10-2017 End: 09-10-2017 Patient encounter KRIS Yola HOYT [facility] Start: 09-10-2017 End: 09-10-2017 Patient encounter CLARA JAMA [facility] Start: 09-03-2017 End: 09-04-2017 Patient encounter Christian Ivan Facility:[facility] Start: 08-28-2017 Ambulatory NAGA ACOSTA [facility] Start: 08-13-2017 End: 08-14-2017 Patient encounter CLARA JAMA [facility] Start: 08-13-2017 End: 08-13-2017 Patient encounter MEREDITH BENITO [facility] Start: 08-13-2017 End: 08-13-[address] Patient [address] [facility] Start: 08-10-2017 End: 08-10-2017 Emergency department patient visit Luke Barbosa Facility:[facility] Start: 08-06-2017 End: 08-07-2017 Patient encounter Christian Ivan Facility:[facility] Start: 07-23-2017 End: 07-24-2017 Patient encounter Christian Thibodeaux [place] Facility:[facility] Start: 07-18-2017 End: 07-18-2017 Patient encounter CLARA JAMA [facility] Start: 07-09-2017 End: 07-10-2017 Patient encounter Christian Ivan Facility:[facility] Start: 06-25-2017 End: 06-26-2017 Patient encounter Christian Ivan Facility:[facility] Start: 06-12-2017 End: 06-12-2017 Patient encounter Christian Ivan Facility:[facility] Start: 05-14-2017 End: 05-15-2017 Patient encounter Christian Thibodeaux [place] Facility:[facility] Start: 05-01-2017 End: 05-02-2017 Patient encounter Salomon Nguyen Facility:[facility] Start: 04-23-2017 End: 04-23-2017 Patient encounter Yasmin Evans Facility:[facility] Start: 04-22-2017 End: 04-22-2017 Emergency department patient visit Luke Barbosa Facility:[facility] Start: 04-18-2017 End: 04-18-2017 Emergency department patient visit Luke Barbosa Facility:[facility] Start: 04-16-2017 End: 04-17-2017 Patient encounter Gamaliel Savage Facility:[facility] Start: 04-16-2017 End: 04-17-2017 Patient encounter Christian Ivan Facility:[facility] Start: 04-11-2017 End: 04-11-2017 Emergency department patient visit Nodr No Doctor Assigned Facility:[facility] Start: 03-26-2017 End: 03-27-2017 Patient encounter Luke Barbosa Facility:[facility] Start: 03-20-2017 End: 03-20-2017 Emergency department patient visit Nodr No Doctor Assigned Facility:[facility] Start: 03-01-2017 End: 03-01-2017 Emergency department patient visit Nodr No Doctor Assigned Facility:[facility] Procedures Date Procedure Procedure Detail Performing [...] on above: Result Comment: PERF ORMED BY: [facility] [address] [place] [address] PATHOLOGIST FOOD PREPARATION SUPERVISOR MALVIN MEDLEY M.D. Start: 12-19-2022 X-ray [...] Start: 05-02-2022 Adult depression scr eening assessment Rosaurailda Renee [facility] Work Phone: Start: 11-30-2017 Antibody screen SHAINA JAMA Comment on above: Performed By: #### T &S #### [place] [address] Aerobic microbial culture FERMIN Wyatt Work Phone: Investigation of transfusion reaction SADAF Wyatt Work Phone: Plan of Treatment Date Care Activity Detail Author Start: 12-18-2032 DTaP,Tdap and Td Vaccines (10 - Td or Tdap) DTaP,Tdap and Td Vaccines (10 - Td or Tdap) [facility] Start: 09-11-2023 Adult BMI Screening Adult BMI Screening [facility] Start: 09-11-2023 Tobacco Screening Tobacco Screening [facility] Start: 08-15-2023 End: 08-15-2023 Patient encounter procedure 08/15/2023 2:15 PM EST Appointment [facility] [address] [id number] [facility] Start: 08-15-2023 End: 08-15-2023 Patient encounter procedure 08/15/2023 9:10 AM EST Routine [facility] [address] [place] [id number] Cuong Ortiz, DO [address] [place] [address] [facility] Start: 07-18-2023 End: 07-18-2023 Patient encounter procedure 07/18/2023 8:00 AM EST Appointment [facility] [address] [address] [facility] Start: 05-02-2023 Depression Screening Depression Screening [facility] Start: 02-15-2023 COVID-19 Vaccine () COVID-19 Vaccine () [facility] Start: 02-15-2023 Influenza vaccination [facility] Start: 12-19-2022 Bacteria identified in Urine by Culture Urine Culture [facility] Start: 12-19-2022 [facility] Start: 12-19-2022 CT of head without contrast CT head/brain wo con [facility] Start: 12-19-2022 CT Unspecified body region WO contrast [facility] Start: 12-19-[address] [facility] Start: 12-19-[address] [facility] Start: 12-19-2022 X-ray of left foot XR foot LT 2V [facility] Start: 12-19-2022 XR Foot - left 2 Views [facility] Start: 12-18-2022 Computed tomography of thoracic spine without contrast CT thoracic spine wo [facility] Start: 12-18-2022 CT cervical spine without contrast CT cervical spine wo [facility] Start: 12-18-2022 CT Cervical spine WO contrast [facility] Start: 12-18-2022 CT Lumbar spine WO contrast [facility] Start: 12-18-2022 CT of head without contrast CT head/brain wo con [facility] Start: 12-18-2022 CT of lumbar spine without contrast CT lumbar spine wo [facility] Start: 12-18-2022 CT Thoracic spine WO contrast [facility] Start: 12-18-2022 CT Unspecified body region WO contrast [facility] Start: 12-18-2022 Pelvis X-ray XR pelvis 1-2V [facility] Start: 12-18-2022 Plain chest X-ray XR chest 1V portable [facility] Start: 12-18-2022 X-ray of both knees XR knee BI 2V [facility] Start: 12-18-2022 XR Chest Single view [facility] Start: 12-18-2022 XR Knee - bilateral [address] [facility] Start: 12-18-2022 XR Pelvis 1 or 2 Views [facility] Start: 2022 Screening for malignant neoplasm of cervix [facility] Start: 02-05-2022 [facility] Work Phone: Start: 2013 Screening for malignant neoplasm of cervix Pap Smear [facility] Start: 2010 Adult BMI Follow Up Plan Adult BMI Follow Up Plan [facility] Anaerobic microbial culture Anaerobic Culture [facility] Bacteria identified in Urine by Culture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
== END 2023-11-04 22:38 | disposition home or self-care (01) ==
LOC: LAB 22:37
PROVIDERS: PCP Physician Assistant; Visit Provider Obstetrics & Gynecology
DX: Z34.93 Encounter for supervision of normal pregnancy, unspecified, third trimester (principal)
CPT/HCPCS: 87081

== ENCOUNTER 2023-11-06 07:25 | Outpatient (OUT) | payer MEDICAID, SELFPAY ==
--- OUTSIDE RECORDS SUMMARY | 2023-11-06 08:14 | XMS_ITS | CCD ---
Author Organization [facility] Care Team Providers Care Bsa Officer Name Role Phone EVITACLARA Unavailable Unavail able SERENITY MALDONADO Unavailable Unavailable OKSANA CARO Unavailable UnavaNAGA Hull Unavailable Unavailable BARBOSA, LUKE MALIK Unavailable Unavailable Salomon Nguyen Unavailable Unavailable Salomon Nguyen Unavailable Unavailable Barbosa, Luke Unavailable Unavailable Edmondson, Christian A Unavailable Unavailable Barbosa, Luke Unavailable Unavailable Edmondson, Christian A Unavailable Unavailable Barbosa, Luke Unavailable Unavailable Shekhar, Christian A Unavailable Unavailable Barbosa, Luke Unavailable Unavailable Edmondson, Christian A Unavailable Unavailable Barbosa, Luke Unavailable Unavailable Edmondson, Christian A Unavailable Unavailable Shekhar, Christian A Unavailable Unavailable Barboas, Luke Unavailable Unavailable Shekhar, Christian A Unavailable Unavailable Barbosa, Luke Unavailable Unavailable Edmondson, Christian A Unavailable Unavailable Edmondson, Christian A Unavailable Unavailable Barbosa, Luke Unavailable Unavailable Barbosa, Luke Unavailable Unavailable Woo, Emiliano Unavailable Unavailable Woo, Emiliano Unavailable Unavailable Patrick Salomon R Unavailable Unavailable Barbosa, Luke Unavailable Unavailable Barbosa, Luke Unavailable Unavailable Oscar, Jag W Unavailable Unavailable Aguila, Jag W Unavailable Unavailable Edmondson, Christian A Unavailable Unavailable Barbosa, Luke Unavailable Unavailable Edmondson, Christian A Unavailable Unavailable Barbosa, Luke Unavailable Unavailable No Doctor Assigned, Nodr Unavailable Unavail able Ivanauskas, Saulius Unavailable Unavailable Ivanauskas, Saulius Unavailable Unavailable Savage, Gamaliel M Unavailable Unavailable Savage, Gamaliel M Unavailable Unavailable Barbosa, Luke Unavailable Unavailable Yacolt, Yasmin D Unavailable Unavailable Barbosa, Luke Unavailable [...] Unavailable Unavailable Patrick, Salomon R Unavailable Unavailable Barbsoa, Luke Unavailable Unavailable Frank, Juanita Unavailable Unavailable Frank, Juanita Unavailable Unavailable Barbosa, Luke Unavailable Unavailable Shekhar, Christian A Unavailable Unavailable Edmondson, Christian A Unavailable Unavailable Barbosa, Luke Unavailable Unavailable Shekhar, Christian A Unavailable Unavailable Barbosa, Luke Unavailable Unavailable Barbosa, Luke Unavailable Unavailable Aguila, Jag W Unavailable Unavailable Oscar, Jag W Unavailable Unavailable Shekhar, Christian A Unavailable Unavailable Barbosa, Luke Unavailable Unavailable Savage, Gamaliel M Unavailable Unavailable Savage, Gamaliel M Unavailable Unavailable Barbosa, Luke Unavailable Unavailable Edmondson, Christian A Unavailable Unavailable Barbosa, Luke Unavailable [...] Emergency Provider [facility]AF [facility]att [facility] Whitney Emergency Provider DR CUONG PAGAN Consulting Unavailable [facility] Primary Care Unavailable DIANA ., DR ACOSTA Attending Unavailable DIANA ., DR ACOSTA Admitting Unavailable DIANA ., DR ACOSTA Admitting Unavailable DIANA ., DR ACOSTA Attending Unavailable [facility] Primary Care Unavailable DIANA ., DR ACOSTA Consulting Unavailable SUSI, DR FELECIA Chadwick Consulting Unavailable [facility] Primary Care Unavailable JUANAK .DR CAMACHO Admitting Unavailabl e KARASIK ., DR CAMACHO Attending Unavailabl e KARASIK ., DR CAMACHO Consulting Unavailabl e WEST, DR GAMALIEL Fischer Consulting Unavailable DIANA ., DR ACOSTA Consulting Unavailable ZIEBER, DR FELECIA Chadwick Consulting Unavailable WILLIAMS ., BARB Admitting Unavailable WILLIAMS ., BARB Attending Unavailable [facility] Primary Care Unavailable WILLIAMS ., BARB Consulting Unavailable DIANA ., DR ACOSTA Admitting Unavailable DIANA ., DR ACOSTA Attending Unavailable [facility] Primary Care Unavailable DIANA ., DR ACOSTA Consulting Unavailable [facility] Primary Care Unavailable KARASIK ., DR CAMACHO Admitting Unavailabl e KARASIK ., DR CAMACHO Attending Unavailabl e KARASIK ., DR CAMACHO Consulting Unavailabl e DIANA ., DR ACOSTA Admitting Unavailable DIANA ., DR ACOSTA Attending Unavailable [facility] Primary Care Unavailable DIANA ., DR ACOSTA Consulting Unavailable ZIEBER, DR FELECIA Chadwick Consulting Unavailable DIANA ., DR ACOSTA Admitting Unavailable DIANA ., DR ACOSTA Attending Unavailable [facility] Primary Care Unavailable DIANA ., DR ACOSTA Consulting Unavailable ZIEBER, DR FELECIA Chadwick Consulting Unavailable PRATIMA, BRODIE Consulting Unavailable DIANA ., DR ACOSTA Consulting Unavailable [facility] Primary Care Unavailable DIANA ., DR ACOSTA Attending Unavailable DIANA ., DR ACOSTA Admitting Unavailable ZIEBER, DR FELECIA Chadwick Consulting Unavailable DIANA ., DR ACOSTA Consulting Unavailable [facility] Primary Care Unavailable DIANA ., DR ACOSTA Attending Unavailable DIANA ., DR ACOSTA Admitting Unavailable DIANA ., DR ACOSTA Admitting Unavailable DIANA ., DR ACOSTA Attending Unavailable [facility] Primary Care Unavailable DIANA ., DR ACOSTA Consulting Unavailable ZIEBER, DR FELECIA Chadwick Consulting Unavailable DIANA ., DR ACOSTA Admitting Unavailable DIANA ., DR ACOSTA Attending Unavailable [facility] Primary Care Unavailable WEST, DR GAMALIEL Fischer Consulting Unavailable DIANA ., DR ACOSTA Consulting Unavailable [facility] Primary Care Unavailable KARASIK ., DR CAMACHO Admitting Unavailabl e KARASIK ., DR CAMACHO Attending Unavailabl e KARASIK ., DR CAMACHO Consulting Unavailabl e DIANA ., DR ACOSTA Consulting Unavailable ZIEBER, DR FELECIA Chadwick Consulting Unavailable DIANA ., DR ACOSTA Admitting Unavailable DIANA ., DR ACOSTA Attending Unavailable [facility] Primary Care Unavailable WEST, DR GAMALIEL Fischer Consulting Unavailable DIANA ., DR ACOSTA Consulting Unavailable DIANA ., DR ACOSTA Admitting Unavailable DIANA ., DR ACOSTA Attending Unavailable [facility] Primary Care Unavailable DIANA ., DR ACOSTA Consulting Unavailable DIANA ., DR ACOSTA Admitting Unavailable DIANA ., DR ACOSTA Attending Unavailable [facility] Primary Care Unavailable DIANA ., DR ACOSTA Consulting Unavailable ZIEBER, DR FELECIA Chadwick Consulting Unavailable DIANA ., DR ACOSTA Admitting Unavailable DIANA ., DR ACOSTA Attending Unavailable [facility] Primary Care Unavailable DIANA ., DR ACOSTA Consulting Unavailable DIANA ., DR ACOSTA Admitting Unavailable DIANA ., DR ACOSTA Attending Unavailable [facility] Primary Care Unavailable DIANA ., DR ACOSTA Consulting Unavailable [facility] Primary Care Unavailable DIANA ., DR ACOSTA Attending Unavailable DIANA ., DR ACOSTA Admitting Unavailable DIANA ., DR ACOSTA Admitting Unavailable DIANA ., DR ACOSTA Attending Unavailable [facility] Primary Care Unavailable DIANA ., DR ACOSTA Admitting Unavailable DIANA ., DR ACOSTA Attending Unavailable [facility] Primary Care Unavailable KARASIK ., DR CAMACHO Consulting Unavailabl e DIANA ., DR ACOSTA Consulting Unavailable DIANA ., DR ACOSTA Procedure Practitioner Unavail able ORLANDO PRASAD Consulting Unavailable JACQUES FLETCHER Consulting Unavailable DIANA ., DR ACOSTA Admitting Unavailable DIANA ., DR ACOSTA Attending Unavailable [facility] Primary Care Unavailable KARASIK ., DR CAMACHO Consulting Unavailabl e ZIEBER, DR FELECIA Chadwick Consulting Unavailable SADAF Wyatt Primary Care Provider MD Farhan Jean Attending Provider DO Lui Oscar Emergency Provider Itzkowitz, DO Arden Admit Provider Itzkocece, DO Arden Attending Provider FRED Ventura Other Provider UnavailMD Juan Edwards Other Provider BRISA MoniqueC Ailyn Other Provider MD Jacques Valerio Other Provider [phone] MD Edith Urias Other Provider [phone] SADAF Wyatt Primary Care Provider Meagan, LOAN SERVICES PROFESSIONAL-BC Elle E Emergency Provider [phone] BRANNON Valencia Emergency Provider [phone] Andie Wyatt PA-C Primary Care Provider COUNG ORTIZ Referring Unavailable ANDIE WYATT Primary Care Unavailable Andie Johnson Unavailable Unallocated, Noms Provider Primary Care Provider Cesar Jean Admitting Unavailab Cesra Mckay Attending Unavailab le Andie Wyatt Primary [...] [BEES] Propensity to adverse reactions (disorder) 8 [facility] Repository (2 sources) Mold spore; Translations: [MOLD SPORES] Propensity to adverse reactions (disorder) 8 [facility] Repository (18 sources) Penicillins; Translations: [PENICILLINS] Propensity to adverse reactions to drug (disorder) 4 [facility] Repository (12 sources) Sulfonamides (Antibiotic); Translations: [SULFA (SULFONAMIDE ANTIBIOTICS)] Propensity to adverse reactions to drug (disorder) 8 [facility], [facility] Repository (1 source) Bee/Wasp/Ant venom; Translations: [Bee Stings] Propensity to adverse reactions to drug (disorder) [facility] Repository (1 source) mold extract; Translations: [Mold] Drug Allergy [facility] Repository (1 source) Sulfonamides (Antibiotic); Translations: [sulfa drugs] Propensity to adverse reactions to drug (disorder) [facility] Repository (4 sources) bee venom; Translations: [BEE VENOM] Propensity to adverse reactions to drug (disorder) 8 [facility] Repository (1 source) OTHER; Translations: [OTHER] Propensity to adverse reactions to food (disorder) 8 [facility] Repository (1 source) MOLDS & SMUTS; Translations: [MOLDS & SMUTS] Propensity to adverse reactions to drug (disorder) 8 [facility] Repository (4 sources) SULFA ANTIBIOTICS; Translations: [SULFA ANTIBIOTICS] Propensity to adverse reactions to drug (disorder) 8 [facility] Repository (1 source) Sulfonamides (Antibiotic) Drug allergy (disorder) 4 [facility] Repository (4 sources) Bee Venom Protein (Honey Bee); Translations: [BEE VENOM PROTEIN (HONEY BEE)] Propensity to adverse reactions to drug 2 [facility] (1 source) Penicillin Drug Allergy 2 [facility] Repository (1 source) Sulfacetamide Drug Allergy 2 [facility] Repository Medications Current Medications Medication Drug [...] mouth in the morning. 0 02/27/2023 Active [place] (No Known Home Meds) (2 sources) Start: 12-18-2022 [place] (No Known Home Meds) Active December 18, [...] (-1 ORAL) Take by mouth. 0 Active Entuxyxn-Mbq-Ld-FA (, w/Iron & FA,) 27-0.8 MG tablet (3 sources) Czkjiyej-Yqr-Lr-FA (, w/Iron & FA,) 27-0.8 MG tablet 1 (one) time each day at the same time. 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 [facility] AFP VALUE 70.2 ng/mL . [facility] COMMENT: Comment . [facility] Comment on above: Alma Chaudhary , Ph.D., [facility] Director References: Available Upon Request. Multiples Of Median Cutoffs For AFP Elevations Briscoe 2.5 Black 2.8 IDD 2.0 Twins 4.5 Abbreviation Definitions IDD - Insulin Dep Diabetes OSBR - Open Spina Bifida Risk For further inquiries contact [employer] at [phone]. This test was developed and its performance characteristics determined by [employer]. It has not been cleared or approved by the Food and Drug Administration. Performed at: [facility] [address] [place], [place] [id number] [employer] Worker: Oz Harkins [facility], Phone: [phone] GEST. AGE ON COLLECTION DATE 20.4 . weeks [facility] GESTAT. AGE BASED ON LMP . [facility] Comment on above: Recalculations are n ot recommended when gestational dating by LMP and ultrasound are within 10 days. INSULIN DEP DIABETES No . [facility] INTERPRETATION Comment . [facility] Comment on above: Interpretation: Scre en [...] Customer Services to discuss available options. The [employer] recommends amniocentesis be offered to women age 35 and older. [age] [facility] MULTIPLE GESTATION No . [facility] OSBR RISK 1 [place] 6301 . [facility] RACE . [facility] RESULTS Report . [facility] TEST RESULTS: Negative . [facility] WEIGHT 159 . lbs [facility] N N LMP [id number] 3 16 N 1 Y 159 N N N N White/ [facility] Urinalysis macro (dipstick) panel (U)on 07-18-2023 Bilirubin, UA Negative Negative - 4(70) +++ mg/dL [facility] Blood, UA Negative Negative - 50 Rakesh/mcL [facility] Clarity, UA Clear [facility] Color, UA Yellow [facility] Glucose, UA Negative Negative - 2000(110) ++++ mg/dL [facility] Interpretation and review of laboratory results Normal [facility] Ketones, UA Negative Negative - 160(16) ++++ mg/dL [facility] Leukocytes, UA Negative Negative - 500+++ Matti/mcL [facility] Nitrite, UA Negative Negative - Positive [facility] pH, UA 5.5 5 - 9 [facility] Protein, UA Negative Negative - 2000(20) ++++ mg/dL [facility] Spec Grav, UA 1.020 1 - 1.03 [facility] Urobilinogen, UA 1.0 0.2 - 12 mg/dL [facility] ABO/Rh Retypeon 12-19-2022 ABO/RH Recheck Result Positive Normal [facility] Comment on above: Result Comment: PERF ORMED BY: [facility] [address] [place] [address] PATHOLOGIST SUBWAY REPAIR SUPERVISOR MALVIN MEDLEY M.D. Amphetamine Screen Ql (U)Ord ered By: Oscar Poe on 12-19-2022 Amphetamines Ql (U) Negative Negative [facility] Amylaseon 12-19-2022 Amylase [Catalytic activity/Vol] 35 U/L Normal 29-103 [facility] Comment on above: Performed By: #### C BC, CREAT, GLU, LYTES, AST, ETOH, BARB, LIPASE, CK, BUN ####[facility] [id number] [address] Aspartate Amino Transferaseo n 12-19-2022 AST [Catalytic activity/Vol] 26 U/L Normal 13-39 [facility] Comment on above: Performed By: #### C BC, CREAT, GLU, LYTES, AST, ETOH, BARB, LIPASE, CK, BUN ####[facility] [id number] [address] Automated erythrocytes count in urine sediment (number/area)Ordered By: Oscar Poe on 12-19-2022 RBC Auto (Urine sed) [#/Area] 5-9 [HPF] 0-4 [facility] Automated leukocytes count i n urine sediment (number/area)Ordered By: Oscar Poe on 12-19-2022 WBC Auto (Urine sed) [#/Area] 10-19 [HPF] 0-4 [facility] Barbiturates [Presence] in U rine by Screen methodOrdered By: Oscar Poe on 12-19-2022 Barbiturates Screen Ql (U) Negative Negative [facility] Benzodiazepines Screen Ql (U )Ordered By: Oscar Poe on 12-19-2022 Benzodiazepines Ql (U) Negative Negative [facility] Benzoylecgonine [Presence] i n Urine by Screen methodOrdered By: Oscar Poe on 12-19-2022 Benzoylecgonine Screen Ql (U) Negative Negative [facility] Bilirubin Test strip Ql (U)O rdered By: Oscar Poe on 12-19-2022 Bilirubin Ql (U) Negative Negative [facility] Blood Urea Nitrogenon 2022 Urea nitrogen [Mass/Vol] 21 mg/dL Normal 7-25 [facility] Comment on above: Performed By: #### C BC, CREAT, GLU, LYTES, AST, ETOH, BARB, LIPASE, CK, BUN ####[facility] [id number] [address] cervical spine wo conon 0 12-19-2022 CT cervical spine wo con [facility] [address] [place], [place] [id number] CT Scan Report Signed Patient: Zuleika Wyatt MR#: [id number] : 1990 Acct:[id number] Age/Sex: 32 / F ADM Date: 12/19/22 Loc: 4 Room: [address] [place] [address] Type: ADM INOo Attending Dr: Arden Orozco DO Copies to: DO Arden Jefferson DO Ordering Provider: Oscar Poe DO Date of Service: 12/18/22 CT/CT cervical spine wo con: f ([id number]) CT/CT head/brain wo con: f CT BRAIN [...] Pimentel Jr., Sammie12/19/2022 10:25 AM Dictation Location: [place] [address] Transcribed By: [facility] 12/19/22 1025 Dictated By: Rah Pimentel Jr, DO 12/19/22 1016 Signed By: 12/19/[address] [facility] [address] head/brain wo conon 12-19 CT head/brain wo con [facility] [place] [address] CT Scan Report Signed Patient: Zuleika Wyatt MR#: [id number] : 1990 Acct:[id number] Age/Sex: 32 / F ADM Date: 12/19/22 Loc: Room: [address] [place] [address] Type: DIS INOo Attending Dr: Arden Orozco [...] Pimentel Jr., DGillian12/19/2022 3:28 PM Dictation Location: [place] [address] Transcribed By: [facility] 12/19/22 1528 Dictated By: Rah Pimentel Jr, DO 12/19/22 1524 Signed By: 12/19/[address] [facility] [address] lumbar spine wo [facility] CT lumbar spine wo [facility] [place] [address] CT Scan Report Signed Patient: Zuleika Wyatt MR#: [id number] : 1990 Acct:[id number] Age/Sex: 32 / F ADM Date: 12/19/22 Loc: Room: [address] [place] [address] Type: ADM INOo Attending Dr: Arden Orozco DO Copies to: DO Arden Jefferson DO Ordering Provider: Oscar Poe DO Date of Service: 12/18/22 CT/CT thoracic spine wo con: f ([id number]) CT/CT lumbar spine wo con: f CT [...] narrowing or hypertrophy. The ribs within the tmjjh-ve-fnry appear intact. No paraspinal soft tissue abnormalities are present. The ascending aorta is mildly ectatic. The heart is not fully imaged though it is at least borderline prominent. There is no consolidation, pleural effusion or pneumothorax within the qvwee-an-evhl. No lumbar compression fractures are identified. There [...] The intra-abdominal and pelvic structures within the zdasj-ik-ojnl show no contributory findings. CT/CT thoracic spine wo con IMPRESSION: MILD THORACIC SCOLIOSIS. NO ACUTE BONY INJURY INVOLVING THE THORACIC OR LUMBAR SPINE. Impression dictated by: Adela Mahan M.D.12/19/2022 10:36 AM Dictation Location: [place] [address] Transcribed By: [facility] 12/19/22 1036 Dictated By: Adela Mahan MD 12/19/22 1026 Signed By: 12/19/22 1036 Normal [facility] Cannabinoids [Presence] in U rine by Screen methodOrdered By: Oscar Poe on 12-19-2022 Cannabinoids Screen Ql (U) Positive Negative [facility] Comment on above: These are unconfirme d results and should not be used for legal purposes. Drug Cut-Off Concentration: AMPH 1000 ng/mL SEEMA 200 ng/mL LAZ 200 ng/mL COCM 300 ng/mL OP 300 ng/mL PCP 25 ng/mL THC 20 ng/mL Color Auto (U)Ordered By: Fernando Poe on 12-19-2022 Color (U) Yellow Yellow [facility] Complete Blood Count Auto Di ffon 12-19-2022 Basophils (Bld) [#/Vol] 0.1 10*3/uL Normal 0.0-0.2 [facility] Comment on above: Result Comment: PERF ORMED BY: [facility] [address] [place] [address] PATHOLOGIST SUBWAY REPAIR SUPERVISOR MALVIN MEDLEY M.D. Performed By: #### C BC, CREAT, GLU, LYTES, AST, ETOH, BARB, LIPASE, CK, BUN ####[address] Basophils/100 WBC (Bld) 0.7 % Normal . [facility] Comment on above: Performed By: #### C BC, CREAT, GLU, LYTES, AST, ETOH, BARB, LIPASE, CK, BUN ####[address] Eosinophils (Bld) [#/Vol] 0.0 10*3/uL Normal 0.0-0.45 [facility] Comment on above: Performed By: #### C BC, CREAT, GLU, LYTES, AST, ETOH, BARB, LIPASE, CK, BUN ####[address] Eosinophils/100 WBC (Bld) 0.2 % Normal . [facility] Comment on above: Performed By: #### C BC, CREAT, GLU, LYTES, AST, ETOH, BARB, LIPASE, CK, BUN ####[address] Erythrocyte distribution width (RBC) [Ratio] 14.4 % Normal 11.9-15.3 [facility] Comment on above: Performed By: #### C BC, CREAT, GLU, LYTES, AST, ETOH, BARB, LIPASE, CK, BUN ####[address] Hematocrit (Bld) [Volume fraction] 36.2 % Normal 34.0-46.4 [facility] Comment on above: Performed By: #### C BC, CREAT, GLU, LYTES, AST, ETOH, BARB, LIPASE, CK, BUN ####[address] Hemoglobin (Bld) [Mass/Vol] 11.9 g/dL Normal 11.8-15.4 [facility] Comment on above: Performed By: #### C BC, CREAT, GLU, LYTES, AST, ETOH, BARB, LIPASE, CK, BUN ####[address] Lymphocytes (Bld) [#/Vol] 2.2 10*3/uL Normal 1.00-4.8 [facility] Comment on above: Performed By: #### C BC, CREAT, GLU, LYTES, AST, ETOH, BARB, LIPASE, CK, BUN ####[address] Lymphocytes/100 WBC (Bld) 21.8 % Normal . [facility] Comment on above: Performed By: #### C BC, CREAT, GLU, LYTES, AST, ETOH, BARB, LIPASE, CK, BUN ####[address] MCH (RBC) [Entitic mass] 26.9 pg Normal 24.7-34.3 [facility] Comment on above: Performed By: #### C BC, CREAT, GLU, LYTES, AST, ETOH, BARB, LIPASE, CK, BUN ####[address] MCV (RBC) [Entitic vol] 82.1 fL Normal 80-100 [facility] Comment on above: Performed By: #### C BC, CREAT, GLU, LYTES, AST, ETOH, BARB, LIPASE, CK, BUN ####[address] Mean Corpuscular HGB Conc 32.8 g/dL Normal 32.0-35.0 [facility] Comment on above: Performed By: #### C BC, CREAT, GLU, LYTES, AST, ETOH, BARB, LIPASE, CK, BUN ####[address] Monocytes (Bld) [#/Vol] 0.8 10*3/uL Normal 0.0-0.8 [facility] Comment on above: Performed By: #### C BC, CREAT, GLU, LYTES, AST, ETOH, BARB, LIPASE, CK, BUN ####[address] Monocytes/100 WBC (Bld) 22.19 % High 0.00-20.00 [facility] Comment on above: Result Comment: For adults in ED, MDW > 20.0 may be associated with a higher risk of sepsis during the first 12 hrs of hospital admission Performed By: #### C BC, CREAT, GLU, LYTES, AST, ETOH, BARB, LIPASE, CK, BUN ####[address] Monocytes/100 WBC (Bld) 7.4 % Normal . [facility] Comment on above: Performed By: #### C BC, CREAT, GLU, LYTES, AST, ETOH, BARB, LIPASE, CK, BUN ####[address] Neutrophils (Bld) [#/Vol] 7.2 10*3/uL Normal 1.8-7.7 [facility] Comment on above: Performed By: #### C BC, CREAT, GLU, LYTES, AST, ETOH, BARB, LIPASE, CK, BUN ####[address] Neutrophils/100 WBC (Bld) 69.9 % Normal . [facility] Comment on above: Performed By: #### C BC, CREAT, GLU, LYTES, AST, ETOH, BARB, LIPASE, CK, BUN ####[address] NRBC% 0.1 /100{WBC} Normal 0-0.5 [facility] Comment on above: Performed By: #### C BC, CREAT, GLU, LYTES, AST, ETOH, BARB, LIPASE, CK, BUN ####[address] Platelet mean volume (Bld) [Entitic vol] 8.1 fL Normal 6.3-10.7 [facility] Comment on above: Performed By: #### C BC, CREAT, GLU, LYTES, AST, ETOH, BARB, LIPASE, CK, BUN ####[address] Platelets (Bld) [#/Vol] 223 10*3/uL Normal 150-450 [facility] Comment on above: Performed By: #### C BC, CREAT, GLU, LYTES, AST, ETOH, BARB, LIPASE, CK, BUN ####[address] RBC (Bld) [#/Vol] 4.42 10*6/uL Normal 3.60-5.00 [facility] Comment on above: Performed By: #### C BC, CREAT, GLU, LYTES, AST, ETOH, BARB, LIPASE, CK, BUN ####[address] WBC (Bld) [#/Vol] 10.3 10*3/uL Normal 3.8-11.6 [facility] Comment on above: Performed By: #### C BC, CREAT, GLU, LYTES, AST, ETOH, BARB, LIPASE, CK, BUN ####[address] Creatine Kinaseon 12-19-2022 CK [Catalytic activity/Vol] 50 U/L Normal 30-223 [facility] Comment on above: Result Comment: PERF ORMED BY: [facility] [address] [place] [address] PATHOLOGIST [employer] REPA[employer] SUPERVISOR MALVIN MEDLEY M.D. Performed By: #### C BC, CREAT, GLU, LYTES, AST, ETOH, BARB, LIPASE, CK, BUN ####[address] Creatinineon 12-19-2022 Creatinine [Mass/Vol] 0.84 mg/dL Normal 0.60-1.20 [facility] Comment on above: Performed By: #### C BC, CREAT, GLU, LYTES, AST, ETOH, BARB, LIPASE, CK, BUN ####[facility] [place] [address] [place] Creatinine Clr Calc Pharmacy 98.76 [facility] Comment on above: Performed By: #### C BC, CREAT, GLU, LYTES, AST, ETOH, BARB, LIPASE, CK, BUN ####[facility] GFR/1.73 sq M.predicted MDRD (S/P/Bld) [Vol rate/Area] mL/min/{1.73_m2} [facility] Comment on above: Performed By: #### C BC, CREAT, GLU, LYTES, AST, ETOH, BARB, LIPASE, CK, BUN ####[facility] [place] [address] [place] Dipstick and Microscopicon 0 12-19-2022 Appearance (U) Clear Normal Clear [facility] Comment on above: Order Comment: Name Collection Type:: Clean-Voided Midstream Performed By: #### U RDS, UHCG, CUU, ADDONUAPLUS #### [facility] [address] [place] [address] [place] Bacteria,Urine None Seen Normal None Seen [facility] Comment on above: Order Comment: Name Collection Type:: Clean-Voided Midstream Performed By: #### U RDS, UHCG, CUU, ADDONUAPLUS #### [facility] [address] [place] [address] [place] Bilirubin,Urine Negative Normal Negative [facility] Comment on above: Order Comment: Name Collection Type:: Clean-Voided Midstream Performed By: #### U RDS, UHCG, CUU, ADDONUAPLUS #### [facility] [address] [place] [address] [place] Color (U) Yellow Normal Yellow [facility] Comment on above: Order Comment: Name Collection Type:: Clean-Voided Midstream Performed By: #### U RDS, UHCG, CUU, ADDONUAPLUS #### [facility] [address] [place] [address] [place] Glucose Ql (U) Normal Normal Normal [facility] Comment on above: Order Comment: Name Collection Type:: Clean-Voided Midstream Performed By: #### U RDS, UHCG, CUU, ADDONUAPLUS #### [facility] [address] [place] [address] Hyaline Casts,Urine 0-8 Normal 0-8 [facility] Comment on above: Order Comment: Name Collection Type:: Clean-Voided Midstream Performed By: #### U RDS, UHCG, CUU, ADDONUAPLUS #### [facility] [address] [place] [address] Ketones Ql (U) 1+ High Negative [facility] Comment on above: Order Comment: Name Collection Type:: Clean-Voided Midstream Performed By: #### U RDS, UHCG, CUU, ADDONUAPLUS #### [facility] [address] [place] [address] Leukocyte esterase Test strip Ql (U) 2+ High Negative [facility] Comment on above: Order Comment: Name Collection Type:: Clean-Voided Midstream Performed By: #### U RDS, UHCG, CUU, ADDONUAPLUS #### [facility] [address] [place] [address] Nitrite,Urine Negative Normal Negative [facility] Comment on above: Order Comment: Name Collection Type:: Clean-Voided Midstream Performed By: #### U RDS, UHCG, CUU, ADDONUAPLUS #### [facility] [address] [place] [address] Occult Blood,Urine Negative Normal Negative [facility] Comment on above: Order Comment: Name Collection Type:: Clean-Voided Midstream Performed By: #### U RDS, UHCG, CUU, ADDONUAPLUS #### [facility] [address] [place] [address] pH (U) 5.5 [pH] Normal 5.0-9.0 [facility] Comment on above: Order Comment: Name Collection Type:: Clean-Voided Midstream Performed By: #### U RDS, UHCG, CUU, ADDONUAPLUS #### [facility] [address] [place] [address] [place] Protein,Urine Negative Normal Negative [facility] Comment on above: Order Comment: Name Collection Type:: Clean-Voided Midstream Performed By: #### U RDS, UHCG, CUU, ADDONUAPLUS #### [facility] [address] [place] [address] [place] RBC,Urine 5-9 High 0-4 [facility] Comment on above: Order Comment: Name Collection Type:: Clean-Voided Midstream Performed By: #### U RDS, UHCG, CUU, ADDONUAPLUS #### [facility] [address] [place] [address] Specificy [place],Urine 1.025 Normal 1.001-1.03 0 [facility] Comment on above: Order Comment: Name Collection Type:: Clean-Voided Midstream Performed By: #### U RDS, UHCG, CUU, ADDONUAPLUS #### [facility] [address] [place] [address] Squamous Epithelial Cell,Urine 3-4 High 0-2 [facility] Comment on above: Order Comment: Name Collection Type:: Clean-Voided Midstream Performed By: #### U RDS, UHCG, CUU, ADDONUAPLUS #### [facility] [address] [place] [address] Urobilinogen,Urine Normal Normal Normal [facility] Comment on above: Order Comment: Name Collection Type:: Clean-Voided Midstream Performed By: #### U RDS, UHCG, CUU, ADDONUAPLUS #### [facility] [address] [place] [address] [place] WBC,Urine 10-19 High 0-4 [facility] Comment on above: Order Comment: Name Collection Type:: Clean-Voided Midstream Performed By: #### U RDS, UHCG, CUU, ADDONUAPLUS #### [facility] [address] [place] [address] [place] Drug Screen,Urineon 12-20-19 23 Amphetamine Screen,Urine Negative Normal Negative [facility] Comment on above: Performed By: #### U RDS, UHCG, CUU, ADDONUAPLUS #### [address] Barbiturate Screen,Urine Negative Normal Negative [facility] Comment on above: Performed By: #### U RDS, UHCG, CUU, ADDONUAPLUS #### [place] [address] [place] Benzodiazepines Screen,Urine Negative Normal Negative [facility] Comment on above: Performed By: #### U RDS, UHCG, CUU, ADDONUAPLUS #### [address] Cannabinoid Screen,Urine Positive High Negative [facility] Comment on above: Result Comment: Thes e are unconfirmed results and should not be used for legal purposes. Drug Cut-Off Concentration: AMPH 1000 ng/mL SEEMA 200 ng/mL LAZ 200 ng/mL COCM 300 ng/mL OP 300 ng/mL PCP 25 ng/mL THC 20 ng/mL PERFORMED BY: [place] [address] PATHOLOGIST [employer] SUPERVISOR MALVIN MEDLEY M.D. Performed By: #### U RDS, UHCG, CUU, ADDONUAPLUS #### [place] [address] [place] Cocaine Screen,Urine Negative Normal Negative [facility] Comment on above: Performed By: #### U RDS, UHCG, CUU, ADDONUAPLUS #### [place] [address] [place] Opiate Screen,Urine Negative Normal Negative [facility] Comment on above: Performed By: #### U RDS, UHCG, CUU, ADDONUAPLUS #### [place] [address] [place] Phencyclidine Screen,Urine Negative Normal Negative [facility] Comment on above: Performed By: #### U RDS, UHCG, CUU, ADDONUAPLUS #### [address] [place] [address] [place] ECG 12 lead ECGon 12-19-2022 ECG 12 lead ECG [facility] Main [place] [address] [place] [address] Electrocardiograph Report Signed Patient: Zuleika Wyatt MR#: [id number] : 1990 Acct:[id number] Age/Sex: 32 / F ADM Date: 12/19/22 Loc: Room: [address] [place] [address] Type: DIS INOo Attending Dr: Arden Orozco [...] ECGs available Confirmed by OSCAR POE DO ([id number]) on 12/19/2022 10:18:39 PM Referred By: Electronically Signed By:OSCAR POE DO Transcribed By: MUS Signed By Oscar Poe DO 12/19 Normal [facility] Electrolyteson 12-19-2022 Anion gap [Moles/Vol] 14.5 mmol/L Normal 6.0-15.0 [facility] Comment on above: Performed By: #### C BC, CREAT, GLU, LYTES, AST, ETOH, BARB, LIPASE, CK, BUN ####[facility] [id number] [place] [id number] [facility] Chloride [Moles/Vol] 105 mmol/L Normal 98-[address] [facility] Comment on above: Performed By: #### C BC, CREAT, GLU, LYTES, AST, ETOH, BARB, LIPASE, CK, BUN ####[facility] [id number] [place] [id number] [facility] CO2 [Moles/Vol] 20.0 mmol/L Low 21.0-31.0 [facility] Comment on above: Performed By: #### C BC, CREAT, GLU, LYTES, AST, ETOH, BARB, LIPASE, CK, BUN ####[place] [address] Potassium [Moles/Vol] 3.5 mmol/L Normal 3.5-5.1 [facility] Comment on above: Performed By: #### C BC, CREAT, GLU, LYTES, AST, ETOH, BARB, LIPASE, CK, BUN ####[address] Sodium [Moles/Vol] 136 mmol/L Normal 136-145 [facility] Comment on above: Performed By: #### C BC, CREAT, GLU, LYTES, AST, ETOH, BARB, LIPASE, CK, BUN ####[address] Ethyl Alcohol Profileon Ethanol [Mass/Vol] mg/dL Normal [facility] Comment on above: Performed By: #### C BC, CREAT, GLU, LYTES, AST, ETOH, BARB, LIPASE, CK, BUN ####[address] Percent Ethanol Not performed Normal [facility] Comment on above: Result Comment: PERF ORMED BY: [facility] [address] [place] [address] PATHOLOGIST [employer] REPA[employer] SUPERVISOR MALVIN MEDLEY M.D. Performed By: #### C BC, CREAT, GLU, LYTES, AST, ETOH, BARB, LIPASE, CK, BUN ####[place] [phone] [facility] Glucoseon 12-19-2022 Glucose [Mass/Vol] 93 mg/dL Normal 70-100 [facility] Comment on above: Result Comment: [place] Glucose Reference Range is dependent on time and content of last meal. Glucose of more than 200 mg/dL in a nonstressed, ambulatory subject supports the diagnosis of Diabetes Mellitus. ADA recommended reference range Performed By: #### C BC, CREAT, GLU, LYTES, AST, ETOH, BARB, LIPASE, CK, BUN ####[facility] Att[address] HCG ( test) IA.rapi d Ql (U)Ordered By: Oscar Poe on 12-19-2022 HCG ( test) Ql (U) Negative [facility] HCG,Qualitative Serumon 07-0 HCG,Qualitative Serum Negative Normal [facility] Comment on above: Result Comment: PERF ORMED BY: [place] [address] PATHOLOGIST [employer] REPA[employer] SUPERVISOR MALVIN MEDLEY M.D. Performed By: #### H CGQUAL #### [facility] [address] [place] [address] HCG,Urineon 12-19-2022 Beta HCG ( test) Ql (U) Negative Normal [facility] Comment on above: Order Comment: Name Collection Type:: Clean-Voided Midstream Result Comment: PERF ORMED BY: [place] [address] PATHOLOGIST [employer] REPA[employer] SUPERVISOR MALVIN MEDLEY M.D. Performed By: #### U RDS, UHCG, CUU, ADDONUAPLUS #### [address] Ketones Auto test strip (U) [Mass/Vol]Ordered By: Oscar Poe on 12-19-2022 Ketones (U) [Mass/Vol] 1+ Negative [facility] - UrinalysisOrder ed By: Oscar Poe on 12-19-2022 Hyaline casts LM Ql (Urine sed) 0-8 [LPF] 0-8 [facility] Lipaseon 12-19-2022 Lipase [Catalytic activity/Vol] 29.0 U/L Normal 11.0-82.0 [facility] Comment on above: Result Comment: PERF ORMED BY: [place] [address] PATHOLOGIST [employer] REPA[employer] SUPERVISOR MALVIN MEDLEY M.D. Performed By: #### C BC, CREAT, GLU, LYTES, AST, ETOH, BARB, LIPASE, CK, BUN ####[facility] [id number] [place] [phone] [facility] Nitrite Test strip Ql (U)Ord ered By: Oscar Poe on 12-19-2022 Nitrite Ql (U) Negative Negative [facility] Opiates [Presence] in Urine by Screen methodOrdered By: Oscar Poe on 12-19-2022 Opiates Screen Ql (U) Negative Negative [facility] Phencyclidine Screen Ql (U)O rdered By: Oscar Poe on 12-19-2022 Phencyclidine Ql (U) Negative Negative [facility] Protein Auto test strip (U) [Mass/Vol]Ordered By: Oscar Poe on 12-19-2022 Protein (U) [Mass/Vol] Negative Negative [facility] Specific gravity Auto test s trip (U) [Rel density]Ordered By: Oscar Poe on 12-19-2022 Specific gravity (U) [Rel density] 1.025 1.001-1.03 0 [facility] Squamous epithelial cells de tection in urine sediment by light microscopyOrdered By: Oscar Poe on 12-19-2022 Epithelial cells.squamous LM Ql (Urine sed) 3-4 [HPF] 0-2 [facility] Type and Screenon 12-19-2022 ABO and Rh group Nom (Bld) Blood group A Rh(D) positive Normal [facility] Comment on above: Result Comment: PERF ORMED BY: [facility] [address] [place] [phone] PATHOLOGIST [employer] REPA[employer] SUPERVISOR MALVIN MEDLEY M.D. Urine Cultureon 12-19-2022 Bacteria identified Cx Nom (U) >100,000 colonies/ml mixed bacterial skin contaminants 2 Days PERFORMED BY: [facility] [address] [place] [address] PATHOLOGIST [employer] REPAIR SUPERVISOR MALIVN MEDLEY M.D. [facility] Comment on above: Performed By: #### U RDS, UHCG, CUU, ADDONUAPLUS ####[place] [address] [place] [phone] [facility] Urine bacteria detection by automated methodOrdered By: Oscar Poe on 12-19-2022 Bacteria Auto Ql (U) None seen None Seen [facility] Urine clarity by refractomet ry automatedOrdered By: Oscar Poe on 12-19-2022 Clarity Refractometry automated (U) Clear Clear [facility] Urine culture routineOrdered By: Oscar Poe on 12-19-2022 Bacteria identified Cx Nom (U) 2 Days [facility] Urine glucose measurement by automated test strip (mass/volume)Ordered By: Oscar Poe on 12-19-2022 Glucose Auto test strip (U) [Mass/Vol] Normal mg/dL Normal [facility] Urine hemoglobin detection b y automated test stripOrdered By: Oscar Poe on 12-19-2022 Hemoglobin Auto test strip Ql (U) Negative Negative [facility] Urine leukocyte esterase det ection by automated test stripOrdered By: Oscar Poe on 12-19-2022 Leukocyte esterase Auto test strip Ql (U) 2+ Negative [facility] Urobilinogen Auto test strip (U) [Mass/Vol]Ordered By: Oscar Poe on 12-19-2022 Urobilinogen (U) [Mass/Vol] Normal mg/dL Normal [facility] XR knee BI 2Von 12-19-2022 XR knee BI 2V [facility] [place] [address] XRay Report Signed Patient: Zuleika Wyatt MR#: [id number] : 1990 Acct:[id number] Age/Sex: 32 / F ADM Date: 12/19/22 Loc: Room: [address] [place] [address] Type: ADM INOo Attending Dr: Arden Orozco DO Copies to: DO Arden Jefferson DO Ordering Provider: Oscar Poe DO Date of Service: 12/18/22 XR/XR knee BI 2V: f ([id number]) XR/XR chest 1V portable: TRAUMATIC INJURY ([id number]) XR/XR pelvis 1-2V: f ([id number]) XR/XR foot LT 2V: f CLINICAL DATA: [...] Adela Mahan M.D.12/19/2022 10:41 AM Dictation Location: [place] [address] Transcribed By: DONTE 12/19/22 1041 Dictated By: Adela Mahan MD 12/19/22 1036 Signed By: 12/19/22 1041 Normal [facility] pH Auto test strip (U)Ordere d By: Oscar Poe on 12-19-2022 pH (U) 5.5 [pH] 5.0-9.0 [facility] Amylase [Enzymatic activity/ volume] in Serum or PlasmaOrdered By: Oscar Poe on 12-18-2022 Amylase [Catalytic activity/Vol] 35 U/L 29-103 [facility] Aspartate aminotransferase [ Enzymatic activity/volume] in Serum or PlasmaOrdered By: Oscar Poe on 12-18-2022 AST [Catalytic activity/Vol] 26 U/L 13-39 [facility] Basophils Auto (Bld) [#/Vol] Ordered By: Oscar Poe on 12-18-2022 Basophils (Bld) [#/Vol] 0.1 10*3/uL 0.0-0.2 [facility] Basophils/100 WBC Auto (Bld) Ordered By: Oscar Poe on 12-18-2022 Basophils/100 WBC (Bld) 0.7 % . [facility] Carbon dioxide, total [Moles /volume] in Serum or PlasmaOrdered By: Oscar Poe on 12-18-2022 CO2 [Moles/Vol] 20.0 mmol/L 21.0-31.0 [facility] Chloride [Moles/volume] in S gwendolyn or PlasmaOrdered By: Oscar Poe on 12-18-2022 Chloride [Moles/Vol] 105 mmol/L 98-[address] [facility] Choriogonadotropin.beta subu nit [Units/volume] in Serum or PlasmaOrdered By: Oscar Poe on 12-18-2022 HCG.beta subunit Qn Negative [facility] Creatine kinase [Enzymatic a ctivity/volume] in Serum or PlasmaOrdered By: Oscar Poe on 12-18-2022 CK [Catalytic activity/Vol] 50 U/L 30-223 [facility] Creatinine [Mass/volume] in Serum or PlasmaOrdered By: Oscar Poe on 12-18-2022 Creatinine [Mass/Vol] 0.84 mg/dL 0.60-1.20 [facility] Eosinophils Auto (Bld) [#/Vo l]Ordered By: Oscar Poe on 12-18-2022 Eosinophils (Bld) [#/Vol] 0.0 10*3/uL 0.0-0.45 [facility] Eosinophils/100 WBC Auto (Bl d)Ordered By: Oscar Poe on 12-18-2022 Eosinophils/100 WBC (Bld) 0.2 % . [facility] Erythrocyte distribution wid th Auto (RBC) [Ratio]Ordered By: Oscar Poe on 12-18-2022 Erythrocyte distribution width (RBC) [Ratio] 14.4 % 11.9-15.3 [facility] Ethanol [Mass/volume] in Ser um or PlasmaOrdered By: Oscar Poe on 12-18-2022 Ethanol [Mass/Vol] mg/dL [facility] Ethanol [Mass/Vol] TNP [facility] Comment on above: Test not performed Glucose [Mass/volume] in Ser um or PlasmaOrdered By: Oscar Poe on 12-18-2022 Glucose [Mass/Vol] 93 mg/dL 70-100 [facility] Comment on above: ADA recommended refe rence rangeRandom Glucose Reference Range is dependent on time and content of last meal. Glucose of more than 200 mg/dL in a nonstressed, ambulatory subject supports the diagnosis of Diabetes Mellitus. Hematocrit Auto (Bld) [Volum e fraction]Ordered By: Oscar Poe on 12-18-2022 Hematocrit (Bld) [Volume fraction] 36.2 % 34.0-46.4 [facility] Hemoglobin [Mass/volume] in BloodOrdered By: Oscar Poe on 12-18-2022 Hemoglobin (Bld) [Mass/Vol] 11.9 g/dL 11.8-15.4 [facility] Leukocytes [#/volume] correc osmel for nucleated erythrocytes in Blood by Automated counOrdered By: Oscar Poe on 12-18-2022 WBC corrected for nucl RBC Auto (Bld) [#/Vol] 10.3 10*3/uL 3.8-11.6 [facility] Lipase [Enzymatic activity/v olume] in Serum or PlasmaOrdered By: Oscar Poe on 12-18-2022 Lipase [Catalytic activity/Vol] 29.0 U/L 11.0-82.0 [facility] Lymphocytes Auto (Bld) [#/Vo l]Ordered By: Oscar Poe on 12-18-2022 Lymphocytes (Bld) [#/Vol] 2.2 10*3/uL 1.00-4.8 [facility] Lymphocytes/100 WBC Auto (Bl d)Ordered By: Oscar Poe on 12-18-2022 Lymphocytes/100 WBC (Bld) 21.8 % . [facility] MCH Auto (RBC) [Entitic mass ]Ordered By: Oscar Poe on 12-18-2022 MCH (RBC) [Entitic mass] 26.9 pg 24.7-34.3 [facility] MCHC Auto (RBC) [Mass/Vol]Or dered By: Oscar Poe on 12-18-2022 MCHC (RBC) [Mass/Vol] 32.8 g/dL 32.0-35.0 [facility] MCV Auto (RBC) [Entitic vol] Ordered By: Oscar Poe on 12-18-2022 MCV (RBC) [Entitic vol] 82.1 fL 80-100 [facility] Monocyte distribution width [Entitic volume] in Blood by AutomatedOrdered By: Oscar Poe on 12-18-2022 Monocyte distribution width Auto (Bld) [Entitic vol] 22.19 % 0.00-20.00 [facility] Comment on above: For adults in ED, MD W > 20.0 may be associated with a higher risk of sepsis during the first 12 hrs of hospital admission Monocytes Auto (Bld) [#/Vol] Ordered By: Oscar Poe on 12-18-2022 Monocytes (Bld) [#/Vol] 0.8 10*3/uL 0.0-0.8 [facility] Monocytes/100 WBC Auto (Bld) Ordered By: Oscar Poe on 12-18-2022 Monocytes/100 WBC (Bld) 7.4 % . [facility] Neutrophils Auto (Bld) [#/Vo l]Ordered By: Oscar Poe on 12-18-2022 Neutrophils (Bld) [#/Vol] 7.2 10*3/uL 1.8-7.7 [facility] Neutrophils/100 WBC Auto (Bl d)Ordered By: Oscar Poe on 12-18-2022 Neutrophils/100 WBC (Bld) 69.9 % . [facility] No Panel InformationOrdered By: Oscar Poe on 12-18-2022 Estimated GFR (CKD-EPI) > 60.0 mL/Min [facility] Creatinine Clearance (Chem 98.76 [facility] Nucleated erythrocytes [Pres ence] in Blood by Automated countOrdered By: Oscar Peo on 12-18-2022 Nucleated RBC Auto Ql (Bld) 0.1 /100{WBC} 0-0.5 [facility] Platelet mean volume Auto (B ld) [Entitic vol]Ordered By: Oscar Poe on 12-18-2022 Platelet mean volume (Bld) [Entitic vol] 8.1 fL 6.3-10.7 [facility] Platelets Auto (Bld) [#/Vol] Ordered By: Oscar Poe on 12-18-2022 Platelets (Bld) [#/Vol] 223 10*3/uL 150-450 [facility] Potassium [Moles/volume] in Serum or PlasmaOrdered By: Oscar Poe on 12-18-2022 Potassium [Moles/Vol] 3.5 mmol/L 3.5-5.1 [facility] RBC Auto (Bld) [#/Vol]Ordere d By: Oscar Poe on 12-18-2022 RBC (Bld) [#/Vol] 4.42 10*6/uL 3.60-5.00 [facility] Serum or plasma anion gap de terminationOrdered By: Oscar Poe on 12-18-2022 Anion gap [Moles/Vol] 14.5 mmol/L 6.0-15.0 [facility] Sodium [Moles/volume] in Ser um or PlasmaOrdered By: Oscar Poe on 12-18-2022 Sodium [Moles/Vol] 136 mmol/L 136-145 [facility] Urea nitrogen [Mass/volume] in Serum or PlasmaOrdered By: Oscar Poe on 12-18-2022 Urea nitrogen [Mass/Vol] 21 mg/dL 7-25 [facility] WBC Auto (Bld) [#/Vol]Ordere d By: Oscar Poe on 12-18-2022 WBC (Bld) [#/Vol] 10.3 10*3/uL 3.8-11.6 [facility] PRBC LEUKOREDUCEDon 07-14-19 ABO and Rh group Nom (Bld) Cross Match Result Compatible Unit Blood Type A Pos Unit Number [id number] Status Information Released Specimen Exp Date Product ID Red Blood Cells Product Code [id number] Cross Match Result Compatible Unit Blood Type A Pos Unit Number [id number] Status Information Transfused Product ID Red Blood Cells Product Code [id number] Normal [facility] Comment on above: Performed By: #### R UBIGG #### [facility] [address] [place] [address] Dr. Juan Antonio Ibarra CBC AUTO DIFFon 07-07-2022 BASO # 0.0 103/ul Normal 0.0-0.1 [facility] Comment on above: Performed By: #### A 1C #### [facility] [address] [place] [address] Dr. Juan Antonio Ibarra Basophils/100 WBC (Bld) 0.3 % Normal 0.2-2.0 [facility] Comment on above: Performed By: #### A 1C #### [facility] [address] [place] [address] Dr. Juan Antonio Ibarra EO # 0.1 103/ul Normal 0.0-0.7 [facility] Comment on above: Performed By: #### A 1C #### [facility] [address] [place] [address] Dr. Juan Antonio Ibarra Eosinophils/100 WBC (Bld) 0.9 % Normal 0.9-7.0 [facility] Comment on above: Performed By: #### A 1C #### [facility] [address] [place] [address] Dr. Juan Antonio Ibarra Erythrocyte distribution width (RBC) [Ratio] 14.5 % Normal 11.0-15.0 [facility] Comment on above: Performed By: #### A 1C #### [facility] [address] [place] [address] Dr. Juan Antonio Ibarra Hematocrit (Bld) [Volume fraction] 22.5 % Critically low 36.0-48.0 [facility] Comment on above: Performed By: #### A 1C #### [facility] [address] [place] [address] Dr. Juan Antonio Ibarra Hemoglobin (Bld) [Mass/Vol] 7.9 g/dL Critically low 12.0-16.0 [facility] Comment on above: Performed By: #### A 1C #### [facility] [address] [place] [address] Dr. Juan Antonio Ibarra IG # 0.10 10e3/ul Critically high 0.00-0.03 [facility] Comment on above: Performed By: #### A 1C #### [facility] [address] [place] [address] Dr. Juan Antonio Ibarra IG % 0.9 % Critically high 0.0-0.5 [facility] Comment on above: Performed By: #### A 1C #### [facility] [address] [place] [address] Dr. Juan Antonio Ibarra LYMPH # 1.6 103/ul Normal 1.2-3.8 [facility] Comment on above: Performed By: #### A 1C #### [facility] [address] [place] [address] Dr. Juan Antonio Ibarra Lymphocytes/100 WBC (Bld) 14.0 % Critically low 20.5-60.0 [facility] Comment on above: Performed By: #### A 1C #### [facility] [address] [place] [address] Dr. Juan Antonio Ibarra MANUAL DIFF REQ NO Normal [facility] Comment on above: Performed By: #### A 1C #### [facility] [address] [place] [address] Dr. Juan Antonio Ibarra MCH (RBC) [Entitic mass] 26.4 pg Critically low 26.7-34.0 [facility] Comment on above: Performed By: #### A 1C #### [facility] [address] [place] [address] Dr. Juan Antonio Ibarra MCHC (RBC) [Mass/Vol] 35.1 g/dL Normal 29.9-35.2 [facility] Comment on above: Performed By: #### A 1C #### [facility] [address] [place] [address] Dr. Juan Antonio Ibarra MCV (RBC) [Entitic vol] 75.3 fL Critically low 81.0-99.0 [facility] Comment on above: Performed By: #### A 1C #### [facility] [address] [place] [address] Dr. Juan Antonio Ibarra MONO # 0.7 103/ul Normal 0.3-0.8 [facility] Comment on above: Performed By: #### A 1C #### [facility] [address] [place] [address] Dr. Juan Antonio Ibarra Monocytes/100 WBC (Bld) 6.2 % Normal 1.7-12.0 [facility] Comment on above: Performed By: #### A 1C #### [facility] [address] [place] [address] Dr. Juan Antonio Ibarra NEUT # 9.1 103/ul Critically high 1.4-6.5 [facility] Comment on above: Performed By: #### A 1C #### [facility] [address] [place] [address] Dr. Juan Antonio Ibarra Neutrophils/100 WBC (Bld) 77.7 % Critically high 43.0-75.0 [facility] Comment on above: Performed By: #### A 1C #### [facility] [address] [place] [address] Dr. Juan Antonio Ibarra Platelet mean volume (Bld) [Entitic vol] 9.2 fL Critically low 9.5-13.5 [facility] Comment on above: Performed By: #### A 1C #### [facility] [address] [place] [address] Dr. Juan Antonio Ibarra PLT 143 103/ul Critically low 150-450 [facility] Comment on above: Performed By: #### A 1C #### [facility] [address] [place] [address] Dr. Juan Antonio Ibarra RBC 2.99 106/ul Critically low 4.20-5.40 [facility] Comment on above: Performed By: #### A 1C #### [facility] [address] [place] [address] Dr. Juan Antonio Ibarra WBC 11.7 103/ul Critically high 4.0-11.0 [facility] Comment on above: Performed By: #### A 1C #### [facility] [address] [place] [address] Dr. Juan Antonio Ibarra CBC AUTO DIFFon 07-06-2022 BASO # 0.0 103/ul Normal 0.0-0.1 [facility] Comment on above: Performed By: #### A 1C #### [facility] [address] [place] [address] Dr. Juan Antonio Ibarra Basophils/100 WBC (Bld) 0.3 % Normal 0.2-2.0 [facility] Comment on above: Performed By: #### A 1C #### [facility] [address] [place] [address] Dr. Juan Antonio Ibarra EO # 0.1 103/ul Normal 0.0-0.7 [facility] Comment on above: Performed By: #### A 1C #### [facility] [address] [place] [address] Dr. Juan Antonio Ibarra Eosinophils/100 WBC (Bld) 0.8 % Critically low 0.9-7.0 [facility] Comment on above: Performed By: #### A 1C #### [facility] [address] [place] [address] Dr. Juan Antonio Ibarra Erythrocyte distribution width (RBC) [Ratio] 14.3 % Normal 11.0-15.0 [facility] Comment on above: Performed By: #### A 1C #### [facility] [address] [place] [address] Dr. Juan Antonio Ibarra Hematocrit (Bld) [Volume fraction] 23.0 % Critically low 36.0-48.0 [facility] Comment on above: Performed By: #### A 1C #### [facility] [address] [place] [address] Dr. Juan Antonio Ibarra Hemoglobin (Bld) [Mass/Vol] 7.5 g/dL Critically low 12.0-16.0 [facility] Comment on above: Performed By: #### A 1C #### [facility] [address] [place] [address] Dr. Juan Antonio Ibarra IG # 0.07 10e3/ul Critically high 0.00-0.03 [facility] Comment on above: Performed By: #### A 1C #### [facility] [address] [place] [address] Dr. Juan Antonio Ibarra IG % 0.6 % Critically high 0.0-0.5 [facility] Comment on above: Performed By: #### A 1C #### [facility] [address] [place] [address] Dr. Juan Antonio Ibarra LYMPH # 2.1 103/ul Normal 1.2-3.8 [facility] Comment on above: Performed By: #### A 1C #### [facility] [address] [place] [address] Dr. Juan Antonio Ibarra Lymphocytes/100 WBC (Bld) 18.8 % Critically low 20.5-60.0 [facility] Comment on above: Performed By: #### A 1C #### [facility] [address] [place] [address] Dr. Juan Antonio Ibarra MANUAL DIFF REQ NO Normal [facility] Comment on above: Performed By: #### A 1C #### [facility] [address] [place] [address] Dr. Juan Antonio Ibarra MCH (RBC) [Entitic mass] 26.0 pg Critically low 26.7-34.0 [facility] Comment on above: Performed By: #### A 1C #### [facility] [address] [place] [address] Dr. Juan Antonio Ibarra MCHC (RBC) [Mass/Vol] 32.6 g/dL Normal 29.9-35.2 [facility] Comment on above: Performed By: #### A 1C #### [facility] [address] [place] [address] Dr. Juan Antonio Ibarra MCV (RBC) [Entitic vol] 79.9 fL Critically low 81.0-99.0 [facility] Comment on above: Performed By: #### A 1C #### [facility] [address] [place] [address] Dr. Juan Antonio Ibarra MONO # 0.7 103/ul Normal 0.3-0.8 [facility] Comment on above: Performed By: #### A 1C #### [facility] [address] [place] [address] Dr. Juan Antonio Ibarra Monocytes/100 WBC (Bld) 6.6 % Normal 1.7-12.0 [facility] Comment on above: Performed By: #### A 1C #### [facility] [address] [place] [address] Dr. Juan Antonio Ibarra NEUT # 8.2 103/ul Critically high 1.4-6.5 [facility] Comment on above: Performed By: #### A 1C #### [facility] [address] [place] [address] Dr. Juan Antonio Ibarra Neutrophils/100 WBC (Bld) 72.9 % Normal 43.0-75.0 [facility] Comment on above: Performed By: #### A 1C #### [facility] [address] [place] [address] Dr. Juan Antonio Ibarra Platelet mean volume (Bld) [Entitic vol] 9.8 fL Normal 9.5-13.5 [facility] Comment on above: Performed By: #### A 1C #### [facility] [address] [place] [address] Dr. Juan Antonio Ibarra PLT 151 103/ul Normal 150-450 [facility] Comment on above: Performed By: #### A 1C #### [facility] [address] [place] [address] Dr. Juan Antonio Ibarra RBC 2.88 106/ul Critically low 4.20-5.40 [facility] Comment on above: Performed By: #### A 1C #### [facility] [address] [place] [address] Dr. Juan Antonio Ibarra WBC 11.3 103/ul Critically high 4.0-11.0 [facility] Comment on above: Performed By: #### A 1C #### [facility] [address] [place] [address] Dr. Juan Antonio Ibarra CBC AUTO DIFFon 07-05-2022 BASO # 0.0 103/ul Normal 0.0-0.1 [facility] Comment on above: Performed By: #### R PRQ #### [facility] [address] [place] [address] Dr. Juan Antonio Ibarra Basophils/100 WBC (Bld) 0.2 % Normal 0.2-2.0 [facility] Comment on above: Performed By: #### R PRQ #### [facility] [address] [place] [address] Dr. Juan Antonio Ibarra EO # 0.0 103/ul Normal 0.0-0.7 [facility] Comment on above: Performed By: #### R PRQ #### [facility] [address] [address] [address] Juan Antonio Ibarra Eosinophils/100 WBC (Bld) 0.4 % Critically low 0.9-7.0 [facility] Comment on above: Performed By: #### R PRQ #### [facility] [address] [place] [address] Dr. Juan Antonio Ibarra Erythrocyte distribution width (RBC) [Ratio] 14.2 % Normal 11.0-15.0 [facility] Comment on above: Performed By: #### R PRQ #### [facility] [address] [place] [address] Dr. Juan Antonio Ibarra Hematocrit (Bld) [Volume fraction] 31.0 % Critically low 36.0-48.0 [facility] Comment on above: Performed By: #### R PRQ #### [facility] [address] [place] [address] Dr. Juan Antonio Ibarra Hemoglobin (Bld) [Mass/Vol] 10.1 g/dL Critically low 12.0-16.0 [facility] Comment on above: Performed By: #### R PRQ #### [facility] [address] [place] [address] Dr. Juan Antonio Ibarra IG # 0.10 10e3/ul Critically high 0.00-0.03 [facility] Comment on above: Performed By: #### R PRQ #### [facility] [address] [place] [address] Dr. Juan Antonio Ibarra IG % 1.1 % Critically high 0.0-0.5 [facility] Comment on above: Performed By: #### R PRQ #### [facility] [address] [place] [address] Dr. Juan Antonio Ibarra LYMPH # 1.6 103/ul Normal 1.2-3.8 [facility] Comment on above: Performed By: #### R PRQ #### [facility] [address] [place] [address] Dr. Juan Antonio Ibarra Lymphocytes/100 WBC (Bld) 17.5 % Critically low 20.5-60.0 [facility] Comment on above: Performed By: #### R PRQ #### [facility] [address] [place] [address] Dr. Juan Antonio Ibarra MANUAL DIFF REQ NO Normal [facility] Comment on above: Performed By: #### R PRQ #### [facility] [address] [place] [address] Dr. Juan Antonio Ibarra MCH (RBC) [Entitic mass] 25.8 pg Critically low 26.7-34.0 [facility] Comment on above: Performed By: #### R PRQ #### [facility] [address] [place] [address] Dr. Juan Antonio Ibarra MCHC (RBC) [Mass/Vol] 32.6 g/dL Normal 29.9-35.2 [facility] Comment on above: Performed By: #### R PRQ #### [facility] [address] [place] [address] Dr. Juan Antonio Ibarra MCV (RBC) [Entitic vol] 79.3 fL Critically low 81.0-99.0 [facility] Comment on above: Performed By: #### R PRQ #### [facility] [address] [place] [address] Dr. Juan Antonio Ibarra MONO # 0.7 103/ul Normal 0.3-0.8 [facility] Comment on above: Performed By: #### R PRQ #### [facility] [address] [place] [address] Dr. Juan Antonio Ibarra Monocytes/100 WBC (Bld) 8.1 % Normal 1.7-12.0 [facility] Comment on above: Performed By: #### R PRQ #### [facility] [address] [place] [address] Dr. Juan Antonio Ibarra NEUT # 6.7 103/ul Critically high 1.4-6.5 [facility] Comment on above: Performed By: #### R PRQ #### [facility] [address] [place] [address] Dr. Juan Antonio Ibarra Neutrophils/100 WBC (Bld) 72.7 % Normal 43.0-75.0 [facility] Comment on above: Performed By: #### R PRQ #### [facility] [address] [place] [address] Dr. Juan Antonio Ibarra Platelet mean volume (Bld) [Entitic vol] 10.1 fL Normal 9.5-13.5 [facility] Comment on above: Performed By: #### R PRQ #### [facility] [address] [place] [address] Dr. Juan Antonio Ibarra PLT 202 103/ul Normal 150-450 [facility] Comment on above: Performed By: #### R PRQ #### [facility] [address] [place] [address] Dr. Juan Antonio Ibarra RBC 3.91 106/ul Critically low 4.20-5.40 [facility] Comment on above: Performed By: #### R PRQ #### [facility] [address] [place] [address] Dr. Juan Antonio Ibarra WBC 9.2 103/ul Normal 4.0-11.0 [facility] Comment on above: Performed By: #### R PRQ #### [facility] [address] [place] [address] Dr. Juan Antonio Ibarra DRUG SCREEN RAPID (URINE)on 07-05-2022 AMP Negative Normal NEGATIVE [facility] Comment on above: Performed By: #### A 1C #### [facility] [address] [place] [address] Dr. Juan Antonio Ibarra BAR Negative Normal NEGATIVE [facility] Comment on above: Performed By: #### A 1C #### [facility] [address] [place] [address] Dr. Juan Antonio Ibarra BUP Negative Normal NEGATIVE [facility] Comment on above: Performed By: #### A 1C #### [facility] [address] [place] [address] Dr. Juan Antonio Ibarra BZO Negative Normal NEGATIVE [facility] Comment on above: Performed By: #### A 1C #### [facility] [address] [place] [address] Dr. Juan Antonio Ibarra PARAM Negative Normal NEGATIVE [facility] Comment on above: Performed By: #### A 1C #### [facility] [address] [place] [address] Dr. Juan Antonio Ibarra CUT-OFFS SEE BELOW Normal [facility] Comment on above: Result Comment: [...] A 1C #### [facility] [address] [place] [address] Dr. Juan Antonio Ibarra DRUG CUT HEADER DRUG CLASS TEST SYST EM CUT-OFF CONCENTRATIONS ARE FOLLOWS: Normal [facility] Comment on above: Performed By: #### A 1C #### [facility] [address] [place] [address] Dr. Juan Antonio Ibarra mAMP Negative Normal NEGATIVE [facility] Comment on above: Performed By: #### A 1C #### [facility] [address] [place] [address] Dr. Juan Antonio Ibarra MTD Negative Normal NEGATIVE [facility] Comment on above: Performed By: #### A 1C #### [facility] [address] [place] [address] Dr. Juan Antonio Ibarra OPI Negative Normal NEGATIVE [facility] Comment on above: Performed By: #### A 1C #### [facility] [address] [place] [address] Dr. Juan Antonio Ibarra OXY Negative Normal NEGATIVE [facility] Comment on above: Performed By: #### A 1C #### [facility] [address] [place] [address] Dr. Juan Antonio Ibarra PCP Negative Normal NEGATIVE [facility] Comment on above: Performed By: #### A 1C #### [facility] [address] [address] [address] Juan Antonio Ibarra PPX Negative Normal NEGATIVE [facility] Comment on above: Performed By: #### A 1C #### [facility] [address] [address] [address] Juan Antonio Ibarra TCA Negative Normal NEGATIVE [facility] Comment on above: Performed By: #### A 1C #### [facility] [address] [address] [address] Juan Antonio Ibarra THC Negative Normal NEGATIVE [facility] Comment on above: Performed By: #### A 1C #### [facility] [address] [address] [address] Juan Antonio Ibarra TYPE AND SCREENon 07-05-2022 TYPE AND SCREEN Negative Normal [facility] Comment on above: Performed By: #### T NS #### [facility] [address] [address] [address] Juan Antonio Ibarra US PREG BIOPHY [...] by: FELECIA GOLDMAN Date: 2022-06-28 15:29 Normal [facility] US PREG BIOPHY W NON [...] U RCX #### [facility] [address] [place] [address] Dr. 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 Juan Antonio Ibarra Clarity (U) CLEAR Normal CLEAR [facility] Comment on above: Performed By: #### U MICRO, UACSIND #### [facility] [address] [address] [address] Juan Antonio Ibarra Color (U) LT. YELLOW Normal YELLOW [facility] Comment on above: Performed By: #### U MICRO, UACSIND #### [facility] [address] [address] [address] Juan Antonio Ibarra Glucose Ql (U) Negative Normal NEGATIVE [facility] Comment on above: Performed By: #### U MICRO, UACSIND #### [facility] [address] [address] [address] Juan Antonio Ibarra Hemoglobin Ql (U) Negative Normal NEGATIVE [facility] Comment on above: Performed By: #### U MICRO, UACSIND #### [facility] [address] [place] [address] Dr. Juan Antonio Ibarra Ketones Ql (U) Negative Normal NEGATIVE [facility] Comment on above: Performed By: #### U MICRO, UACSIND #### [facility] [address] [place] [address] Dr. Juan Antonio Ibarra LEUKOCYTES MODERATE Abnormal NEGATIVE [facility] Comment on above: Performed By: #### U MICRO, UACSIND #### [facility] [address] [place] [address] Dr. Juan Antonio Ibarra Nitrite Ql (U) Negative Normal NEGATIVE [facility] Comment on above: Performed By: #### U MICRO, UACSIND #### [facility] [address] [place] [address] Dr. Juan Antonio Ibarra pH (U) 6.0 [pH] Normal 5-9 [facility] Comment on above: Performed By: #### U MICRO, UACSIND #### [facility] [address] [place] [address] Dr. Juan Antonio Ibarra SPEC GRAVITY 1.020 Normal 1.005-<=1. 025 [facility] Comment on above: Performed By: #### U MICRO, UACSIND #### [facility] [address] [place] [address] Dr. Juan Antonio Ibarra UA PROTEIN Negative Normal NEGATIVE/ TRACE [facility] Comment on above: Performed By: #### U MICRO, UACSIND #### [facility] [address] [address] [address] Juan Antonio Ibarra UR MICRO IND INDICATED Normal [facility] Comment on above: Performed By: #### U MICRO, UACSIND #### [facility] [address] [address] [address] Juan Antonio Ibarra Urobilinogen Qn (U) 1.0 {Pamela'U}/dL Normal 0.2 - 1. 0 [facility] Comment on above: Performed By: #### U MICRO, UACSIND #### [facility] [address] [address] [address] Juan Antonio Ibarra URINE MICROSCOPIC ONLYon BACTERIA SMALL Abnormal NONE SEEN [facility] Comment on above: Performed By: #### U MICRO, UACSIND #### [facility] [address] [place] [address] Dr. Juan Antonio Ibarra Bacteria identified Cx Nom (U) INDICATED Normal [facility] Comment on above: Performed By: #### U MICRO, UACSIND #### [facility] [address] [place] [address] Dr. Juan Antonio Ibarra CAST NONE SEEN Normal NONE SEEN [facility] Comment on above: Performed By: #### U MICRO, UACSIND #### [facility] [address] [address] [address] Juan Antonio Ibarra Crystals LM Nom (Urine sed) NONE SEEN Normal NONE SEEN [facility] Comment on above: Performed By: #### U MICRO, UACSIND #### [facility] [address] [address] [address] Juan Antonio Ibarra Epithelial cells LM Ql (Urine sed) RARE Normal NONE SEEN /RARE The [facility] Comment on above: Performed By: #### U MICRO, UACSIND #### [facility] [address] [place] [address] Dr. Juan Antonio Ibarra MUCOUS NONE SEEN Normal NONE SEEN [facility] Comment on above: Performed By: #### U MICRO, UACSIND #### [facility] [address] [place] [address] Dr. Juan Antonio Ibarra RBC NONE SEEN Abnormal 0-2 [facility] Comment on above: Performed By: #### U MICRO, UACSIND #### [facility] [address] [address] [address] Juan Antonio Ibarra WBC 2-5 Abnormal NONE SEEN [facility] Comment on above: Performed By: #### U MICRO, UACSIND #### [facility] [address] [address] [address] Juan Antonio Ibarra GROUP B STREP CULTUREon 05-18 S. agalactiae Ag Ql (Unsp spec) Culture Observations: NEGATIVE FOR GROUP B STREPTOCOCCUS. Normal [facility] Comment on above: Performed By: #### G BSCX #### [facility] [address] [address] [address] Juan Antonio Ibarra US PREG BIOPHY [...] by: GAMALIEL CRUMP Date: 2022-06-14 16:10 Normal [facility] US PREG BIOPHY W NON [...] by: FELECIA GOLDMAN Date: 2022-06-07 16:42 Normal [facility] US PREG BIOPHY W NON [...] by: FELECIA GOLDMAN Date: 2022-06-04 17:11 Normal [facility] US PREG BIOPHY W NON [...] by: FELECIA GOLDMAN Date: 2022-06-04 16:23 Normal [facility] US PREG BIOPHY W NON [...] by: GAMALIEL CRUMP Date: 2022-05-31 18:39 Normal [facility] US PREG BIOPHY W NON [...] R PRQ #### [facility] [address] [place] [address] Dr. Juan Antonio Ibarra HEMOGRAM AND PLATELon 2021 Hematocrit (Bld) [Volume fraction] 33.5 % Critically low 36.0-48.0 [facility] Comment on above: Performed By: #### A 1C #### [facility] [address] [place] [address] Dr. Juan Antonio Ibarra Hemoglobin (Bld) [Mass/Vol] 10.7 g/dL Critically low 12.0-16.0 [facility] Comment on above: Performed By: #### A 1C #### [facility] [address] [place] [address] Dr. Juan Antonio Ibarra MCH (RBC) [Entitic mass] 29.3 pg Normal 26.7-34.0 [facility] Comment on above: Performed By: #### A 1C #### [facility] [address] [place] [address] Dr. Juan Antonio Ibarra MCHC (RBC) [Mass/Vol] 31.9 g/dL Normal 29.9-35.2 [facility] Comment on above: Performed By: #### A 1C #### [facility] [address] [place] [address] Dr. Juan Antonio Ibarra MCV (RBC) [Entitic vol] 91.8 fL Normal 81.0-99.0 [facility] Comment on above: Performed By: #### A 1C #### [facility] [address] [place] [address] Dr. Juan Antonio Ibarra PLT 179 103/ul Normal 150-450 [facility] Comment on above: Performed By: #### A 1C #### [facility] [address] [place] [address] Dr. Juan Antonio Ibarra RBC 3.65 106/ul Critically low 4.20-5.40 [facility] Comment on above: Performed By: #### A 1C #### [facility] [address] [place] [address] Dr. Juan Antonio Ibarra WBC 9.9 103/ul Normal 4.0-11.0 [facility] Comment on above: Performed By: #### A 1C #### [facility] [address] [place] [address] Dr. Juan Antonio Ibarra US PREG REEVAL [...] by: FELECIA GOLDMAN Date: 2022-03-20 20:55 Normal [facility] US PREG ANATOMY SINGLEon US [...] by: FELECIA GOLDMAN Date: 2022-02-22 16:46 Normal [facility] Coding Summaryon 02-14-2022 Coding Summary HTMLBase 64 LkvplhbdSZu0sIf+PGhlYWQ+PE 6NHCVwB20gtABlzA8VO8dMPL5Q VYSNIFQFZK2WRJ0toPE4ORtpB2 VybiAv DgeviFOhXT22BUk2NLV2rZpgCI bliW0rvJBxJ0p3OkVyAB33nU97 KKawDXFuNrW9DmVapmtcmAVn O2fgJfDpzGKsXpy+PHRhYmxlIH nmRIXdFFewLKTiNaImaZpbTQ6d Fs1wDBKoBTMciDfknMZkThOc x7xuYPRfDEamQY5hlKgeP7OleM R7GAIpu9i8Op57aVQ+PHRkIHN0 dRurJIytb888FoByt7oqOUZ5 jUAdQJhlOYX0D52sg8H1FHBvRF XcIAX6qWK6lA8lrRbdikvqX1Qa mJCgJbL4FSL9cQWfiQ7pqPrv tqdlbA3eTuu+K97QVH6MPJHZTZ 4HNdv5R7YaMsmysHK+MC23VGPs UA25eKYkaFLta6ydeGy0CwTo VJDgQVT5iPnzVPydo4XvBNKhU9 6hoETdh3F8NJVksWfqmUInVaPo iJY7wE9oQKhkctome3qngdlh Ivyam1scza21kV17I50nIFzhMV NoBBM2RAZgHNPwzDurbn0viA6i Ii8+LRllx3wgj9nsaKu8VzZj SWWvhyPjoBjmBVL4l3AeBe31E8 WxnLigu4XnTum0vc84pNDsd0L0 dOQ7TLktDWNlsR2rKRowApG6 NNPuJsMjeH41dDEqQXcsBl2vfB lexDnxCJ5rUQXzqpjkDTUocO6a WLNzuMNroKkxAO5eUIClzzbi w028JjOhQQJ4YOXhrNGvZ3NijZ 6bWgVpYTFmMAFqB8StnGZbOLjd O726QXrbUuU9LUPkijQlW4Ah XFFplQghHwR7j1L8Hg8Hi6Tsst yzQEH2PBlhYFT6AdWjUyJxLnD3 T9NqSlr5JQOjrOmlYD9nU5Lh MGZvdnafdfeurCY8UQHeCGLtaY 31pJCkBQazKh6ut7L7e505FWHq YAIlpD27Og8fuYrvEWJltSJJ oR6jkrapc9ykhaclOnWbUOHuFI u4MUq1OXEkdOzvZzDmNWZ9BqF6 SNS8fPOdqD4xrGwycuyfpJ3b Oyc+J34bzG8vMZP6EJZ7fnjvQJ XdnhAfLU08BY77G7CkLdjadZIj bGU+XRMgotPpgUaoOD1lItCi l7lai5HzEYlpU3SiERFtEPeuFp y3MEXwFZL2aWP8lE2wKWDwYRvp r0R3iHW2T9ArfkLmyw6yt4xu IYQkSSprG82oxREsa5N1DSQroS C2JZEoyRukJyGhaM49Ays+PGNv uBcwv2FxUgvwc7mkb0jauDu7 HcQaEULtfqJgwUfyBCD8q1NvRr 84S05uCRwiWNCiKKTyEMJuYZVa mBjocm5ncY2cTw4+PGNvbCB3 dAB3rB7aRIIwUkY6QFcoM801Tu OqvHTxZtylq8xzk7anvFx2ImXm AMGgaoMtrJpgITR0k3UnRm13 G50qYMtmILWkHFNkARYtEGXgtD jnqi9mmM6rLp5+HG1bu3sodv48 zQ15rSC+COBiLME4aMbtNZho YOPemS4hOGscTxO8VGKtYbMloX 15bBVeHYvuTa3wuWnbqItnEB5f VJKehhujr885OxXrj9bsEEDw fSDeRXujHFA1I29qj4V6SVCtYW SoUVS9wVU0sT1bmNezduopqSRw uNjgyuYpxWgvAAhyZWfkQ059 IHRvcDsnPlBhdGllbnQgTmFtZT w8N4ZzVfc7VXIqgJbdTR6htPUb PShkRa4arQtraDxiVW7oZZYy tpffa926UrVuo9mzGEPtbBTqSI geSFD1C40pj0R7GRBvWUWvERG1 mLU9uB8hiEhvkzejfHMnrXro ssNngIxaZVfrFFvbF259DBFtyZ phRjVghvEbBMGveNB0LX32SX56 gOBxw9D9aTM4H7JwQSWfitmu rbiklLG9LKUtZCRihI16Ye8ajV bhBn0gCUImVIO8IQUlnRGwY6Mr oV9fGtSqFTRaFOWeO0QcgALz KAztQ439ZIrnTlP2WVVqxiBoU3 YxROZhnQcyBdA9f5Q6Ip0DC6N9 QV97ZV05uRUkd2P4bYX7E2Is FCYcxyhenqmrcZR6GTUrXRNcqR 98Ea8kfIavAs2yLGQuJCI6FOOz yIGqD6PfbZ0tRtOdLGUsNHCm Y8AnqXGeBHilD314OKfgQrB3VM MokvAoT4JqVWTakJurWdL1l8T6 Ms2ABSp0RN16IJ29qETeq3C9 pLS6U0AeWQKpguqnlhwjyCQ3AC FpSCTiyG86Qy0zvEpwLh7fXELi OTJ6MIRlxWErV3YxnI9kKyNa ANAqJEQpD5WrnFNtDTekR320RQ lfQcF1WWIdihSfX3EwEUDxnBmx KvU6j5Z0Hw3SCKHhLK17FCW4 kDC4OZ10MW03T2DzRcedgCXqlB U+PHRhYmxlIHdpZHRoPScxMDAl MqHmhKraPA3zLu6oDCLcRXZa tLmmoQNjDaWug5dvZAJgKWdyJJ 9eyRqbG9NkiIT0KZSel7r1Ka28 Q29iZ9IibJX+NAZyfES8sDK9 tN4fYvZrUtZ0DMraF644IpCqyF KpKdslq7vok6aysGr4KdM2AWVg rtHgiQuqCEX0y1IgHs73D27y IHdpZHRoPSIxNSUiIHZhbGlnbj 8jbG8pSl8+PTBnnHN5hZC4lC4q DbPeSdR0DGnyP079AdVdpGVp Lzatv2eqk0znwIt7OtCnXEUwoj RtnQxvJRP2n1BcYj05T7ToeIlz b1BrIhc1ls44gMSli3F8iKY6 V1AtHENzrzagpBHwzGtaNQ0zYS OdmugsNSGjkZ0cFJNgD3b1LlGx TxE3VEsfO1DskbB4ZQVuaEWi IBngYAZ9N32lb0N9SGJzSLYzAO S2kPM0dI3qxLuejagrkEUmiPgv lfDqoYuuKFzkUJxiK376AHCv xFoiXOMqrO3vQFBikZEuyQlwIL 4wNTBpbjsnPlNURUlOLCBWSVJH MR1QMCTSDCI3S4SkSzm4YFHd mCngZB8lfHWhOIwjMk6duPqylE bcZU5xPPVloafoCXEabG4eYAUk cZDdmRxlDL1jXFHfkgvci902 FmNhOYO0XULvzPMyG5KhaC3dPz UwQUFnAGDvH6CegBTdGAmvH027 XUhzQnB8MLGbakFnW8IqUWTs xVqdNpC4k4G8Lm7hOK6kAO9pEJ aaOV92EA64sYXhu3Z1jMM7T1Te HXTbnkswsqszcVF4FYBuMUJl sW06kDJeQUqdAb2vg1T5a742AU JfEVKlyM56Jg0gfMxeLOIfrPSJ bR8atcxpz3rkxedyAeJzCGRj PQh7YLg7EPBwgUxvZlIbIJZ1Mz J5DBG2eUEcxQ8cpNbqdrypgH0y Oyc+LzsaAGEvjzH3Z0JnIjr0 VQRfgVhzBW2lbGFqWNabQn4tuI encKcaMW8oNPRaqbouGHIatW9b POXwrIGnyVdyTC1wUBOcfxha i295ZwHcMSS6WRYayYElQ4GenI 2tHzNyAQBoQERtF7LodJJyDXdh P152MJtcIyK0XLFqzkImR9Bx BMWlpUetEoE5z0F3Vg7POL5OXF G6Y4RzYjk1RKIevVibYT7ywQNr RModDw9doMjejMwuOT9tXQAf nmlzPSYzaC8zNAKqdIUzhDqpBD 6nMONakpehc109FrPaWRK1XWDe xLWlI4QryG1tVgGsFAPvQNUd Y0IjoGPnJWqiW315EWtlWmX8CG DujyHoJ7DzLLLbmNuiJlR5z0J7 Xm1QVOkckJH+ZE84dp85R5Cc FujsZhz7MIPyNQK2uDO3uX3gUG NoHMarc8R5qDQ3M1DyxqAqiz7r d3hqZKAkKZmgO61icDCxl1C4 RMIgeXJ5FGAhdUcpDsFjaN03Kp c+RWGrqIjtd8TfPcbhv1ysj0gy kDc3PjItXVYszrGgbEhrHJB0 r7HfIx22R77yORznHPAlCXMpVY OhCJFfzNxkvx4tcW3jFs7+PGNv qRJ1cYS7sL3fRmXtTlZ9DTir H966AkBelENeEsyjy5qnj0ounY r3UnJdLIAnqbElxKzrAOX1r5Nj Mt79C3IktCrxb9EzZyr8zj27 fZVrx3W9qWD5G1OqGXHmxvhvtQ AtiThgMM8oRZJkdcmnITKflC3m QCMrO6t3BsTqRkG8ZMhpV2Dq coT7PBVyxKPpSCRawJCJzY0ina cap1yswxbcKoDxWROhECu2GGo1 DRKyxNstYbGuNUL2YxV1KDU2 eFRkjB7kgLcgqozzpH3dQqr+UG o5k7kgmTPlAT8hjAU0JL07BQ80 uASem2D3gRC4Q8YdVUYrmovh aqfxyPD8TDXxCAZjvP68Bh8glU odDr5zDBFmVPG1PZKikOSyV1Sf dO6tFqVySVUsDKCeZ4QruYEf JRshV063KThhMxP4OPWmbbQfE2 AlGXRtbJccTfY3w2H4Go6EVR53 BB95GD60zSPun6Q1qES2N3Xn TGBrhhpejadycVU7GHWeHPUvdL 54Zy5txDqnKo5wHSYeVHB9GHDq fPObB2KmdP6lYzMvSCWpPMLm G2KpuQFmALauG307DObtCyR2NU BtkeAbS7ZgJUNckPrbRoP6r9Y7 Hu7TIu54LK60XT84wDPaq4W1 lST6K7QsFHHmeybpijnyeKH4LQ UhKXEukV38Kz8ahGobCu8wHIAa UVT8MDOxrRLwD0QmdF6aMiLe FFStJXDxR3VmlUEhXAjfW135QA ebYtM8FFXxrnPvM0BcVLYsmDdv IpD9x5C9Vz8ORKmwopb0O5Iu PjwvdHI+YN38WUHhRY90zQRlaF Fjn7gncBa3XxSdATZeCJX5jOxe XSdsi9WrBPDfT44lqQTfb7Q5 IGN (more content not included)... [facility] Coding Summary HTMLBase 64 JlevhvioRSz9yPp+PGhlYWQ+PE 6XZPAjO62nkKJhsN3DQ4yIYV1V BBHWDFJXGL2PKF3qwUO0UZhtD2 VybiAv TdbeyJEeBW74LVl5FXR0nAxoYH eooO4zkUKrR2c0BqHdHI16jL24 GMqcAYKbDsH8NgEzbbjdcNPh P8leOzSdiXGjUuy+PHRhYmxlIH wtGIBcFCsdYHBaNnQzzNibXC7k Ft5zQLXmXTReqFiksWHmBnBa t8nwPVUzXKwsSN1dwVmoG5WinW L6HSWmk7w4Gr72hEG+PHRkIHN0 aPvfRPvrc175XyYdh6hnXLA1 yWArPHexBFY1Y26zc8R6IKBtGL LyGMZ4qFW9yX7owQoelpucC2Ok bUFvRiM7MUO2gNCppH5jkXor ldvtyG1nGcb+E00JUH6RDUNWMG 0YHyf9A3IyRliixTK+JK99APLo NB86yMSyaEYjl1qpvTf3BtDv FDNnJDT3kLthNZtrm6MaKSVeI5 6gpQJpo3M1EUJyaWdxcDOfKpDf hJG3kT2qUOqdqqcxr2tjgjus Hdoyg3ujth32nQ53R80rBMcqXX DjHTN8XOHuRNEccZltsc7ieZ4e Ii8+ZTvgj8ths3mslCg9KnQs FWWrcvZnxFlxZIK0c4EtFu67C9 HxfUyya7GyJwf9fw47oNCex2J6 iEC7KBuoJYOhuO1tBPzgWmF3 EPBxVnNxuM34aXKzKKhjMq4yhG txrBepLR3bIVOzfambMZCxsV1k IZKktBEksCnfRH7oZAAogmlx l962QoBbARA9CALcyJRcS9HxeQ 8xKsVoSSKwOLLzP4SuqNQsYTky X959OXctMzV4EQHvceCzW2Zo DDSqjKcgMjL6c5K1Ln7Wu9Lpne nlALR9TKbrPXA2NlZfBuVcEoO6 Z4ZePiy6UAMglUewKM0iE6Fj VYHsomeawpvjoYF4OSUwGEFqqP 92sQFxTZrnJc4vt5X7f992HQIk HZArqM69Th1lqAclHYHrvLMC eB2nhhfnc2ydoryxXyYtIXGuZX o4AXy4XEEzeBelQkEeFXA4WjZ8 ZZF2zNWruX3cxHjpkwdsdV5f Oyc+K36mlO1pOKI2FBU4cajzMO TsywYaFI87JV48Z2BgNhapaSUl bGU+HQSemtZybIguSV2vZqAe i5zew7SlTEpxX7VeAUOgUJzoCz v2NLZoARZ9zKQ2vX0tOGEvEFqp e1F0hCW3Q4DapdQzum2pz9tv MTWwILkaB81vmEApz3Z6YJHktO F5DZCkvHgsSjHbuN99Zmi+PGNv pXwjk9KvIpnws1dlj5daxPl5 RyQxWKNdxvLbeNzzCSS9k7GdRw 24P43aOGpgBVSvHXYrEMLmKAYp zAxdou4uiQ1fNq3+PGNvbCB3 dUJ1iC1zVPViZbH5SYyqZ713Sl KekBUoYhfvd4voq4aodTx4YdLj SQDqwkKfuQjyLCY2a0LxUr33 T51gLPelNLRbKQDlZGXoTBGydL aeln3pbI3rKt9+AH3ad9uqgh30 aC98yZW+XELqBOR5eIhxVKjw ZGDzvH4iOYwdVbN1ZKVtBiGdaC 34cIZsSIlvLn2onTxcfUqtYJ2v JDHocnhxb895BuQtg9diOHXd vATdAAcvBEK6I59sq0V2UDYjJD UzJLD0cTA1yG4lhAwpfpytbYTu pSzlcyJpgGeeLOkwATfsX786 IHRvcDsnPlBhdGllbnQgTmFtZT t7Z2AsCtn4AEDtaOqnSR4kvIKo HIgrNy8alHjwgUtiLB0qSJFi ygigx511IgIqu1fsJNMxgDEfAA nyLUM7L40rq1E3IVQfUNKzXFW2 uLD0cX8duTnzwswrvXEkzKdz ufHjjKatBGsbBBvzV236HHXqkZ apKbQsqtAgASOgzAK5UI32CN95 sMOao0S1hSD8W3RtCIVleedz mmbdnDY0MNEuVEFcqW86Cd1jlV pvGd0gGXOqSJA0HZYlnQBhU8He wK3pTiQvOWYrEEQiE5HylMRz SGysN560HWogNjJ8HAIutnQnF3 IcUXBdzIpeLzK5q9F3Bd5SQ8G6 FJ72LV88bMRxc4F4yNM6V2Hc BRCljhtuaxgkdDG0QTGfVPLooG 65Js6vtFoeEa0eVAIjCGF7TTAv xUSvG7VhrP3aMzKiKLHrWAAx V5UxdUKvYSjrN581ICchExK4HK VinsWbI6ZmGZBerGzbSeC1q7V5 St8ENNa1TR18RY00pFJkw2Z2 gTD0P3GeXPLbdnbxzhhtrTY0FG ObNYVxiW13Cp8bcElcSa7rYSLv AHR0RRPpqWHvN8JahO2uJnJu YPWtTVRnB9OixHWoDAakA764HV bpFiQ8YSBtuiQoU5ZoIILzeJtl SlE5h4C4Lq7BMQLcPA20GZG9 wZY9PY99NC30H4QgBfpqbAJaaE U+PHRhYmxlIHdpZHRoPScxMDAl PlZqhYbwOA4yRv6aCBIbQSOy rRugzYIeJvKqj4rbCOPfRJhdAS 5rlZqqG7NefHC8YVFhs0m7Tn36 D26pE0XjxTZ+AHJrlSV9jMC8 kH0uKvGqLfB8ENnsB237TmGcyL CmIyhmf5atb4gffRw8VuP8HJUx ljLsvCtfVZT5l0RlZh10Z39q IHdpZHRoPSIxNSUiIHZhbGlnbj 2izE1qYg9+TRQuiNP3kHI0iW1o DjAmHmR2YLdbL973WpZuuKOd Dwuzw0brl3tmeAk1FsVeOJBvbi FllJmnDXD4c3IwGd85V6NxuMwd u9WoCht4az59pPNiv4R7jPX5 O8SgMWJimzdrvAIqdEtpXY4uSO LyeskvYKGljO5wAJWfI3a2DeXo PgR8ONcdD2RkthT6HAPjnTPx ZZseNGX1W22sl1O2TXTaEQIsAM Z4lHE1fC5pgDppdnmvuSLgfGwk fiVacRkcSFcsZWrkN347EZAj oLxqGFTwpP2mUSOmtLVowBdoCN 4wNTBpbjsnPlNURUlOLCBWSVJH TS8KQZJQAFH5Q3ZuKij7DBUw nLoxVP5orBDyPKnxBn3jrTnswX grNU5lHVKkhlraCNBcmG4mMRBy fNVbhHmmYY1sFNNlpihvd496 WyHiFOL8DDLdrBVjU9AfhD9uWc LmFDAlPBRnG0MbqNPpUCuoA200 BVweIwJ7WNRutsUvB3JdXPHy wMnpRtH1f4M9Ms6sXN1uVN6iIK xkFH79XJ12tXWsl6Y5hOS8Y2Mc AYSbssijoyozwAV3MQOjBARu uX24fFQoBOuuDy8vv4F7o557AR RsEAZlpA36Xf7ngCzmPAXxiZPK gS1omxxfl3ycdohdOvEvXYWv TNm0RGf5KSXdkBfcJcLgRHH7Ss N1FXY2sZPogT5qcYkmuukooN3k Oyc+TasxLSLuztE6Q4YhNlr8 YOYzkGthJV8reVMpFNxtMu8plH scoSbgUB3nEOCoazlnHJOvpB2b YGNhdSIfiOyjZQ9wKRPfbkhs q524MrBjUYT4WDSelCLhO7YuwF 9lSsUfUIWkQPYtN4KqpDCsGCtq F085WQphHrM8JBKldzMiS8Vv BSQekWziTfT2w7N9Ue4XSL7DLU U1P8AbAkr9HKJigMakQA3bbDJc FVyxEy0cmCvzvWemJG4gTMVh byysESNfxJ8nJKUlaMHztWirHA 1yYSRvrncda091WfQeCYU2QNQy vRMlS7ZycB6cCyBcIYQrCFBg N4BzeBNyKCipQ109STieVaP9FF DfylRdE3MtTRJhaXmhXkQ3h1U6 Xs4SzHQgY1YfF3t7K2OiZtpy dHI+MR68PACvLI89qXXmmRPef4 jskTm4EdArMOTkLJA0qRokXVuq t5CwYZYmB39rwKZjr5Z2UGHw rOggfTYhDeLkvDN8dH4qWBbhfb vwv4izrqqfVgysa7vucu92vT44 E95wKLvsPIRgUKYdCDRrPKRj uNhmux0saV6fEt3+AMUcxPD5kG F1zD5fSbNoXpQ0GDgqU272VcOq uUOzDlunt8jyc6ajlKc4HvOa OWGpfnQzgJjkASX8o9NkJx38B8 9sIHdpZHRoPSIyMCUiIHZhbGln do2pdA8fDj9+IG8lv6ywzl72 gL39pBN+SLZjXUJ2gZlhLSysAL ZnnH9zEJjgEaS6UEVpStDrmG99 mJHbSSvfCv7rnYbevYwnKC1h QHAowqtai552EeBqj2gyUUEkwP IeWEydJOM8H76ju1F7QKOlMTIa VBO1wMU2sV2ltQqyixayiQZy qHgynvZthWyfPUpeLGslJ112OS DfzHlvMaTgbQUeM2eiylURKR5f OjwvdGQ+KDKsWFK2qTjxMMan TRVexS6sYBZwC0x3HwAfEmG7YL qhT3CfygF4SXHaxLUeLATvdIPQ gF8jiqbiy9pgyuqePfKzQZTi IZv8PLc0ESDywWnxFlRaJWE6Oe G0ZGG4kIXvfP4lwNifovxpvB0z Oyc+RklOOjwvdGQ+PHRkIHN0 hOrdMPybUUYnaE7uFPNtQ9l5Ms CdYyE6KQhbO3FchtU9BADvtCFw AUOhsTVBsI9slmazh7qmgfsy KzLvIKHeHFg3SFt3ZFFopZefQj VdKTV2RjI6EBD3oWFwfU2rzIwb fdnwkG9hNzq+TVJOOjwvdGQ+ UGMrYVF3pLmyOInkQVJleO1uWW FcC2m5KwTiNbO7KVhhK9SpdnL7 CTQucUZmVETarWCEsF7qorja c6lnewxpIdGgRYJgJSq3QHp2CD DbtKrvQcVkFUH0SqD6NQZ0oCUv tJ5nsSdgvapnuX8pJwc+UGF5 NKZ3TG34XT21H0LpJlhsxFHyxE U+PHRhYmxlIHdpZHRoPScxMDAl WqSakRhnBA2hBd0lVAWbVUYh bGx (more content not included)... Normal [facility] CHLAMYDIA/GONOCOCCUS RAINER ( AB/URINE/PAPon 02-09-2022 Chlamydia trachomatis, RAINER Negative Normal Negative [facility] Comment on above: Performed By: #### R PRQ #### [facility] [address] [address] [address] Juan Antonio Ibarra Neisseria gonorrhoeae, RAINER Negative Normal Negative [facility] Comment on above: Performed By: #### R PRQ #### [facility] [address] [address] [address] Juan Antonio Ibarra AFP MATERNAL FOR SPINA BIFID Aon 02-08-2022 AFP MoM 1.41 Normal [facility] Comment on above: Performed By: #### A FPMAT #### [facility] [address] [address] [address] Juan Antonio Ibarra AFP Value 66.8 ng/mL Normal [facility] Comment on above: Performed By: #### A FPMAT #### [facility] [address] [address] [address] Juan Antonio Ibarra AFP, Serum for Spina Bifida Report Normal [facility] Comment on above: Performed By: #### A FPMAT #### [facility] [address] [address] [address] Juan Antonio Ibarra Comment Comment Normal [facility] Comment on above: Result Comment: Melchor Chaudhary, Ph.D., [facility] Director . References: Available Upon Request. . Multiples Of Median Cutoffs For AFP Elevations Briscoe 2.5 Black 2.8 IDD 2.0 Twins 4.5 Abbreviation Definitions IDD - Insulin Dep Diabetes OSBR - Open Spina Bifida Risk . For further inquiries contact [facility] at [phone]. . This test was developed and its performance characteristics determined by [employer]. It has not been cleared or approved by the Food and Drug Administration. Performed By: #### A FPMAT #### [facility] [address] [place] [address] Dr. Juan Antonio Ren Age Collection Date 18.3 weeks Normal [facility] Comment on above: Performed By: #### A FPMAT #### [facility] [address] [address] [address] Juan Antonio Ibarra Gestat, Age Based on LMP Normal [facility] Comment on above: Result Comment: Reca lculations are not recommended when gestational dating by LMP and ultrasound are within 10 days. Performed By: #### A FPMAT #### [facility] [address] [place] [address] Dr. Juan Antonio Ibarra Insulin Dep Diabetes No Normal [facility] Comment on above: Performed By: #### A FPMAT #### [facility] [address] [place] [address] Dr. Juan Antonio Ibarra Interpretation Comment Normal [facility] Comment on above: Result Comment: [...] Customer Services to discuss available options. The [place] recommends amniocentesis be offered to women age 35 and older. Performed By: #### A FPMAT #### [facility] [address] [place] [address] Dr. Juan Antonio Ibarra [age] Normal [facility] Comment on above: Performed By: #### A FPMAT #### [facility] [address] [place] [address] Dr. Juan Antonio Ibarra Multiple Gestation No Normal [facility] Comment on above: Performed By: #### A FPMAT #### [facility] [address] [address] [address] Juan Antonio Ibarra OSBR Risk 1 IN 3501 Normal [facility] Comment on above: Performed By: #### A FPMAT #### [facility] [address] [address] [address] Juan Antonio Ibarra PDF . Normal [facility] Comment on above: Performed By: #### A FPMAT #### [facility] [address] [address] [address] Juan Antonio Ibarra Race Normal [facility] Comment on above: Performed By: #### A FPMAT #### [facility] [address] [place] [address] Dr. Juan Antonio Ibarra Test Results: Negative [facility] Comment on above: Performed By: #### A FPMAT #### [facility] [address] [address] [address] Juan Antonio Ibarra VAGINITIS/VAGINOSIS DNA PROB Abdirashid 02-08-2022 Bettye species Negative Normal Negative [facility] Comment on above: Performed By: #### A 1C #### [facility] [address] [place] [address] Dr. Juan Antonio Ibarra Gardnerella vaginalis Negative Normal Negative [facility] Comment on above: Performed By: #### A 1C #### [facility] [address] [place] [address] Dr. Juan Antonio Ibarra Trichomonas vaginalis Negative Normal Negative [facility] Comment on above: Performed By: #### A 1C #### [facility] [address] [place] [address] Dr. Juan Antonio Ibarra ABO and Rh group post transf usion reaction Nom (Bld)Ordered By: Eleazar Hess on 02-06-2022 Microscopic observation Gram stain Nom (Unsp spec) [facility] ED Clinical Summaryon 2021 ED Clinical Summary [facility] Emergency Department [address] [place] [id number] ED Clinical Summary PERSON INFORMATION Name: ZULEIKA WYATT Age: 31 Years Sex: FEMALE : 1990 MRN: Acct#: Visit Reason: Rash; Medical problem - minor; POSS BODY INFECTION Arrival: 01/29/2022 20:27:46 Discharge: 01/29/2022 21:17:00 LOS: 000 00:50 Check In: 01/29/2022 20:27:46 Checkout:01/29/2022 21:17:00 Address: [address] [place] [address] [place] [address] PCP: Andie Stoddard PROVIDER INFORMATION Provider Role [...] follow-up with their family doctor or their RELOCATION MANAGER doctor. To this they agreed.. Health Status [...] Current Fr (more content not included)... Normal [facility] ED Note - Physicianon 2021 ED [...] follow-up with their family doctor or their RELOCATION MANAGER doctor. To this they agreed.. Health Status [...] Once. Impression and Plan Diagnosis Sebaceous cyst ([id number] L72.3, Discharge, Medical) Plan Condition: Unchanged. Disposition: Discharged: time 01/29/2022 20:59:00. Prescriptions: Launch prescripti (more content not included)... Normal [facility] ED Patient Summaryon 022 ED Patient Summary [facility] - Emergency Department [address] [place] [address] PATIENT DISCHARGE INSTRUCTIONS Patient Information Name: ZULEIKA WYATT Age: 31 Years Date of : 1990 Reason For Visit: Rash; Medical problem - minor; POSS BODY INFECTION Arrival Time: 01/29/2022 20:27:46 Primary Care Physician: Andie Stoddard Attending Physician: Johnson Wrgiht DO Comment: Visit Diagnosis: Diagnoses This Visit Medical problem - minor ([id number]) Rash ([id number]) Sebaceous cyst (L72.3) [facility] [place] [...] alcohol and/or drug addiction problems; contact the [facility] 07/01 Crisis Hotline -Text 4HABV to 233348. If you received any narcotics, sedation, or [...] legal documents With: Address: When: Andie Wyatt [facility] [phone] Business (1) Within 3 to 5 days Comments: home warm compresses clindamycin for antibioitic see your ob, or Dr Wyatt, for recheck apt ----at some point, this might have to be removed; this is not cancer, but a retention cyst of fat material; Return if very red and tender, or fever, vomiting worse You are welcomed to return anytime. Call Dr Wright, ext [phone], if any question patric WRIGHT< ER PHYSICIAN< [facility] Medication Information: The exam and treatment you received today in the [facility] Emergency Department were for an urgent problem and are not intended as complete care. It is important for you to follow up with a doctor, nurse practitioner, or physician?s assistant farm operations manager for ongoing care. If your symptoms become [...] so we can reach you if necessary. [facility] has provided you with a complete list of medications post discharge. Please inform your curtain hemmer automatic/provider of your visit and for further instruction [...] Epidermoid Cyst (more content not included)... Normal [facility] TYPE AND SCREENon 12-30-2021 TYPE AND SCREEN Antibody Screen NEGA TIVE Blood Bank Notes performed by CV on 12/26/2021 ABO Rh Typing A Rh Positive Blood Bank Notes performed by CV on 12/26/2021 Normal [facility] Comment on above: Performed By: #### R UBIGG #### [facility] [address] [place] [address] Dr. Juan Antonio Ibarra HEP B SURFACE ANTIGEN SCREEN on 12-28-2021 HBsAg Screen Negative Normal Negative [facility] Comment on above: Performed By: #### H BSANS #### [facility] [address] [address] [address] Juan Antonio Ibarra HEPATITIS C VIRUS AB W/ REFL EX QUANTon 12-28-2021 HCV AB 0.2 s/co ratio Normal 0.0-0.9 [facility] Comment on above: Performed By: #### A 1C #### [facility] [address] [place] [address] Dr. Juan Antonio Ibarra Interpretation: Comment Normal [facility] Comment on above: Result Comment: Nega tive Not infected with HCV, unless recent infection is suspected or other evidence exists to indicate HCV infection. Performed By: #### A 1C #### [facility] [address] [place] [address] Dr. Juan Antonio Ibarra HIV 1 AND 2 WITH REFLEXon HIV Screen 4th Generation wRfx Non-Reactive Normal Non Reactive [facility] Comment on above: Result Comment: HIV Negative HIV-1/HIV-2 antibodies and HIV-1 p24 antigen were NOT detected. There is no laboratory evidence of HIV infection. Performed By: #### R UBIGG #### [facility] [address] [place] [address] Dr. Juan Antonio Ibarra RPR QUANTon 12-28-2021 Rapid Plasma Reagin, Quant Non-Reactive Normal NonRea<1:1 [facility] Comment on above: Result Comment: Plea se Note: This test does not meet current guidelines for screening and diagnosis of syphilis. This test is intended for following treatment response in patients being treated for syphilis infection. To screen for syphilis infection, a reflex cascade that includes both RPR and a treponema-specific assay should be utilized, such as Treponema pallidum (Syphilis) Screening Kimble (364234) or Rapid Plasma Reagin (RPR) Test With Reflex to Quantitative RPR and Confirmatory Treponema pallidum Antibodies (058497). Performed By: #### R PRQ #### [facility] [address] [place] [address] Dr. Juan Antonio Ibarra RUBELLA AB IGGon 12-28-2021 Rubella Antibodies, IgG 3.48 index Normal Immune >0.99 [facility] Comment on above: Result Comment: Non- immune <0.90 Equivocal 0.90 - 0.99 Immune >0.99 Performed By: #### R UBIGG #### [facility] [address] [place] [address] Dr. Juan Antonio Ibarra CBC AUTO DIFFon 12-26-2021 BASO # 0.0 103/ul Normal 0.0-0.1 [facility] Comment on above: Performed By: #### A 1C #### [facility] [address] [place] [address] Dr. Juan Antonio Ibarra Basophils/100 WBC (Bld) 0.3 % Normal 0.2-2.0 [facility] Comment on above: Performed By: #### A 1C #### [facility] [address] [place] [address] Dr. Juan Antonio Ibarra EO # 0.0 103/ul Normal 0.0-0.7 [facility] Comment on above: Performed By: #### A 1C #### [facility] [address] [place] [address] Dr. Juan Antonio Ibarra Eosinophils/100 WBC (Bld) 0.4 % Critically low 0.9-7.0 [facility] Comment on above: Performed By: #### A 1C #### [facility] [address] [place] [address] Dr. Juan Antonio Ibarra Erythrocyte distribution width (RBC) [Ratio] 13.5 % Normal 11.0-15.0 [facility] Comment on above: Performed By: #### A 1C #### [facility] [address] [place] [address] Dr. Juan Antonio Ibarra Hematocrit (Bld) [Volume fraction] 38.9 % Normal 36.0-48.0 [facility] Comment on above: Performed By: #### A 1C #### [facility] [address] [place] [address] Dr. Juan Antonio Ibarra Hemoglobin (Bld) [Mass/Vol] 12.9 g/dL Normal 12.0-16.0 [facility] Comment on above: Performed By: #### A 1C #### [facility] [address] [place] [address] Dr. Juan Antonio Ibarra IG # 0.03 10e3/ul Normal 0.00-0.03 [facility] Comment on above: Performed By: #### A 1C #### [facility] [address] [place] [address] Dr. Juan Antonio Ibarra IG % 0.3 % Normal 0.0-0.5 [facility] Comment on above: Performed By: #### A 1C #### [facility] [address] [place] [address] Dr. Juan Antonio Ibarra LYMPH # 1.4 103/ul Normal 1.2-3.8 [facility] Comment on above: Performed By: #### A 1C #### [facility] [address] [place] [address] Dr. Juan Antonio Ibarra Lymphocytes/100 WBC (Bld) 14.5 % Critically low 20.5-60.0 [facility] Comment on above: Performed By: #### A 1C #### [facility] [address] [place] [address] Dr. Juan Antonio Ibarra MANUAL DIFF REQ NO Normal [facility] Comment on above: Performed By: #### A 1C #### [facility] [address] [place] [address] Dr. Juan Antonio Ibarra MCH (RBC) [Entitic mass] 29.6 pg Normal 26.7-34.0 [facility] Comment on above: Performed By: #### A 1C #### [facility] [address] [place] [address] Dr. Juan Antonio Ibarra MCHC (RBC) [Mass/Vol] 33.2 g/dL Normal 29.9-35.2 [facility] Comment on above: Performed By: #### A 1C #### [facility] [address] [place] [address] Dr. Juan Antonio Ibarra MCV (RBC) [Entitic vol] 89.2 fL Normal 81.0-99.0 [facility] Comment on above: Performed By: #### A 1C #### [facility] [address] [place] [address] Dr. Juan Antonio Ibarra MONO # 0.5 103/ul Normal 0.3-0.8 [facility] Comment on above: Performed By: #### A 1C #### [facility] [address] [place] [address] Dr. Juan Antonio Ibarra Monocytes/100 WBC (Bld) 4.6 % Normal 1.7-12.0 [facility] Comment on above: Performed By: #### A 1C #### [facility] [address] [place] [address] Dr. Juan Antonio Ibarra NEUT # 7.7 103/ul Critically high 1.4-6.5 [facility] Comment on above: Performed By: #### A 1C #### [facility] [address] [place] [address] Dr. Juan Antonio Ibarra Neutrophils/100 WBC (Bld) 79.9 % Critically high 43.0-75.0 [facility] Comment on above: Performed By: #### A 1C #### [facility] [address] [place] [address] Dr. Juan Antonio Ibarra Platelet mean volume (Bld) [Entitic vol] 10.0 fL Normal 9.5-13.5 [facility] Comment on above: Performed By: #### A 1C #### [facility] [address] [place] [address] Dr. Juan Antonio Ibarra PLT 194 103/ul Normal 150-450 [facility] Comment on above: Performed By: #### A 1C #### [facility] [address] [place] [address] Dr. Juan Antonio Ibarra RBC 4.36 106/ul Normal 4.20-5.40 [facility] Comment on above: Performed By: #### A 1C #### [facility] [address] [place] [address] Dr. Juan Antonio Ibarra WBC 9.7 103/ul Normal 4.0-11.0 [facility] Comment on above: Performed By: #### A 1C #### [facility] [address] [place] [address] Dr. Juan Antonio Ibarra CULTURE URINEon 12-26-2021 CULTURE URINE Culture Observations : LIGHT GROWTH OF MIXED GENITAL ALONSO. NO POTENTIAL PATHOGENS SEEN. Normal [facility] Comment on above: Performed By: #### R UBIGG #### [facility] [address] [address] [address] Juan Antonio Ibarra GLYCOHEMOGLOBIN A1Con 2021 ADA RECOMMENDATION SEE BELOW Normal [facility] Comment on above: Result Comment: ADA RECOMMENDED LIMIT 4.0 - 6.0 ADA THERAPEUTIC TARGET < 7.0 ACTION SUGGESTED > 7.0 Performed By: #### A 1C #### [facility] [address] [address] [address] Juan Antonio Ibarra Glucose [Mass/Vol] 114 mg/dL Normal [facility] Comment on above: Performed By: #### A 1C #### [facility] [address] [address] [address] Juan Antonio Ibarra HbA1c (Bld) [Mass fraction] 5.6 % Normal 4.5-6.2 [facility] Comment on above: Performed By: #### A 1C #### [facility] [address] [address] [address] Juan Antonio Ibarra US PREG TVon [...] by: FELECIA GOLDMAN Date: 2021-12-07 16:59 Normal [facility] Coding Summaryon 11-21-2021 Coding Summary HTMLBase 64 QsngtlemBHo6lHs+PGhlYWQ+PE 3QPTYtX84auXPtyQ4UA4jJFW6V SNJJEWCEQB1OSI6euUI7GVuiO5 VybiAv FurlwNQvLC54WGi1GKR9aGawMN vmrQ5tlDLdQ7o5EaVqLL40pO88 UNosQJCuZxS5QuHodbnduQRp P0rpQoUzzXMjKam+PHRhYmxlIH hrPXGmXJnnDEVmNlSjrTazPC3t Km1oCOEiCEPlkSzyoWNvJmEj x6qcACIfXUqnHI9giIxdC7HktY S1XILvx7s9Vb69eRV+PHRkIHN0 mOmyKVvfw883HlMia4miYXO1 gMGcSHlnWXF5A95sw1U2FFFxDM UnEFJ4gOX2lA7gqEjzciaeO7Sq uWUfCgK5TPO8nOOgzS8kqCys ffpfpG6iYhc+N37QPL7IWZVSOP 8NDwu4Q6BdRpvgsXJ+YK35ZSTt RJ87oLCmmQHav1fgqOq3OdIf BMZvMQI3cFbxRVwtr8WyZTZaQ4 0vqZVgw8W6MGIrgXirlERwEeWa wUK1xV1bTGwpqjxkm4yqrody Rmfdz3nvmq62sV66Q42cIHtzBZ NrPRE7TWHuARQkrTulap0sfQ4e Ii8+UWskm4mpe6dfpKg3DoYb BRMfcnKrbVrhMRT6o5TdMz54W1 WttSikq5DnKjm4bn89vNLlz8A5 fHA2ONyjACNmnU5zDDezXrH2 HMFdUdLfkN33mVJnKOzmVi4ucG toxFmmJK1vAMCkaypmMIGckI0c MIGdkHCdjAdmTB3kPCPvsyiw v207OiMfCXB3WOOkcXKnU4XtoQ 6cLlWcLAEoVEShH9NpbCWjPAuo V926CRizVtG4AMCzneUxH3Zk LOVwjExlDjZ1d5J7Ix7Lu3Mmox xbEIW2PTdkJTP0DcG0GpGzOwX7 P9UyBhx6ZWQoeUhbON5hQ2Br ABIjiwjqirrduDB2QWEtWFMgyI 31lBSzNYatId9kl6U3d981VPRp BLTceC17Of2qoYnqZVKacUUA nS8fdvgat5zegdcrZeDoTKQeAG n9XTq9ZTFmfKoeUdRhGFN1HzA1 GXJ6nGAtdB0reHvdjytleJ1m Oyc+N17ohW3fJGB5JUG5ilmtQI NfwkGhDI02XF80M2InDykxjXWx bGU+LINlxdXqeIqbIP4wIhOw j8uiz4XtYAtzJ5EuDISfKDlvMr l9WWAaAHF5mOA9rK8eTFUyGVhm f1R4nII3A8JdtnStje8ul7hq LTAeBIdkZ06npEFjq1E4LETvmF B1TIJetVjoOmYnaA89Eeg+PGNv hGlsi7EdWzenk3bsi1wjkWm8 TbErFMXdldBzlBukLIZ8q0ItKa 22Q01jTCmxPMTnXJCrPVTcTYZo xTwonk4mcT8iNr8+PGNvbCB3 fLK4uW5sRXJuEmW6VVhxB429Mt BdzYTpFaplb0gfo4kluWk7RqPm IDYbpwChbBxdGNX5u8TcLc28 R53aRMwnMMGvHRGyCZJaZSItoH corp2tlG6zHd4+AJ8na6hicy76 bM65fVT+TETkSRL4hWcjSTif MJIolG0sOAcjHfH8EXMkYuQdvY 25sZFgLTgcEh5svCsmjHqyWK0m SZElrexmc293AjVbb7jwNETd fPKoUOtxLNA9B63za3L3ZALrKL JpCMJ5lPE7fN8mwZkvnklhpASt tAeykcZbsJgeWPolJSilX112 IHRvcDsnPlBhdGllbnQgTmFtZT w4B3MvTha1VALwwIzpZY7igHJy QKgmHr1juXllqJjjBD2gFRAc iuhxn880LmHzl3ghUCGywULgXX lePTP7L85ac3U1BCTwOHJlQRP9 iUJ3dL1chGfpowkuzBZdvQst lsFxmFzjGEluECjgB580ELSfiD stAcTxnrEnNDNhbVL9US42KA65 jBAty4H5oXO7E7KqANHwxyfo grgrhTG1ZPAkOIDtdI53Nc9riM pmNb2pCEIyJUL0KBGsnTTgA4Ze hI9hEhPiTJLsSWGoH8PxuHNn VMfjF721CXwsMdZ3ANDqwvGlT0 IzKSPepFejQyG7s6Y7Ga1HN9Y0 PM63HJ66mPCga0A3mHC2P6Ur GWAtltrsofsnsQV7XEIyADLgwK 11Ne9eqYpvYt5bWOOvCBG9CGVa xTCrQ6TbwQ7tSlRcKIWqJVWo R4EloQUhQAyfS821VKedKcV9IT IaqjNpA6ThHAVwcFbjAhZ0j5P7 Lv6HEFd8CE79FQ14ePQgv5Y0 uON5W9VxFJTvbhutbjunrKO4WO OkRXKzwW77Dw2aqXsvLk6hZDUf TIQ0PIIolKMfL7IlzM6gTeOx GJAzCSIqS5MitYLmUAnfW495TL zxNrH0BAPgxmSkV8EmVHBunWia EeS6o8O4Qt2UWHWsZC02QRN7 dQR1DC61GX60X6ShMrxvlEMgsK U+PHRhYmxlIHdpZHRoPScxMDAl NjGyuHbsTL8nWs1mBDZtGGLu yGnjkIWxWfKpq0wiNIMtTRumXT 3ffWrmA6JbkVO5ITPhx5u2Dd41 G69sV6RdhVB+QVLebJI4hPF1 vQ5dBkUcVsZ4IPbuL127XaXpcF IqWlixk7syt5ltxGg8JvI3PAFn rzLzrNizIRS7r2SaDq40G16j IHdpZHRoPSIxNSUiIHZhbGlnbj 7lfZ5zTu0+NRJsuYF4kWX2dN1j ZmNuMvB7AVaoL741ArHzfHHt Vmyhg4qjf1ewyKh6WyEvXBTawy WjpHkvZEO6k9LyCl33Y4GetUcj b2XcAip0fl38lXPuk0D4yAY3 E2BxCVRmvvhwoUVbbZadFB4bBU NlcgyoNVFeeW8zKWAxC5a7TnYv RzV4TQivC1ToesB9CKUhkKLv GQxlVSK1I88sg6P0BDAvJOErHP A8vLP1xG8gtEeasbekzDXkaAdg pmSwiGywASwiLNhaI678EKDe cDrjZYOjhD2lGFAfyAXyeFcfQY 4wNTBpbjsnPlNURUlOLCBWSVJH CL3KJGVXUPC0D9RoSsd0VNKo fDooVV3xsLQoYUggUk7hlPmtmN jcEA0rCINndtxqOYBbnT3pXAQz dGBkiUyfUV0uTUQppkkbw174 LnZtDAI5UKMmdDUyG6WgjH5eKr JkVJXjBJCmG9NifLDwPNuuZ761 ETkwDoC1NUEiglOuB4WuTDIh dEcdTfQ9l6E2Px3nZJ5lCJ1gME mxYB61EB02yRVyv6A1zGQ1N1Wv EZZthznytvosmGA4KNIjXTUe gO29rGSsVMmtHy5tf2E4s235PC ZaYCGhiS82Of8bsLvcHNXuhIED jR1ztvalw8birivoFlGnCYTl KAi6IAi5XPQliRpvSiTsSJI3Bn U1KUL7tUPmvW5iiXdddfoojX6p Oyc+CisnHTSmcgK8D1EpLgx1 BJBopChjBU9fbTTrKPjmAo7kjU llyKpkZG7aFWHoxlvfTJSshL0o YQSeyTCnvQgkKL9eFNFqqdpx a606DiQiMIT9BIJfwRLkR5FufQ 3zPiMcBSLgNIYgE0MoyPBiXGzi K421XTlkSpT9XBGvzsVyI3Uc ZKDpjKebUaH0j8G4Av7DPX0OWL W5F6YyZgg1NJOsmWoqWZ1bhGFp PIkhVi6cbWpyvTprPH3zXMFs jmlmLHHzdT0jNACpzVJjhQkjSI 7uUFItipyps236LgDlOJD7DFWd qZNvH2HwvT2hBjEzTLPpLNQf H8ZjgUHuRZgnF056FSwpIyU2EN BnztSfQ7UfOKFaqSdeZwU1s8P2 Pr9DYYohlTJ+RO40kp58H6Bm AbmiRwa1ZIKtOOT7pIX3wQ0gTS NpAIvpz2O2yXF7E4AsivHnat0j q7wiPSUqZFtxB80reNXbq8Z6 PGGsmVM9AUIkfMxjEqFqaS04Lf c+PATtbRpgs0MuFtsgt3quf6kr vBe5HwCuKQWlmoMdoVcfXHR5 c2HuWc56Y29sOBnlQKLvXXPwIC GdPFIsuNpvgi9raV4aXj1+PGNv aUA4dTI8iH7xNoHxKdA5SLfn A906AjSeiCCuUhxwv2dao8yxfJ i2RxRnGWHsarLwcYujNLY3t1Qv Bd77Y6DcfImwo0HdZut8jn04 eVAxb3G8yHU7E8KmHQQrpvxdyC ScjPduSG6xQTFjjdxfYKMnzB1h GZXhU7r2JdEhRhE0DTczJ0Bo lnH6UBJgfTFnQOSntPRGrO6cdb fcj5qqnyueVtHsNCSgEYd2QCp5 ICPeoHqfRfNxQNI6OcJ2SFG6 yQFgaB3olVkuyqgxrC0sJlq+UG h2d2kmcMVtGL5yiBF0EA77JV52 vMOqi0W0bAA1H3WuHWPfubhr bcfvdLA2CMItMXWwjA09Im0xvZ waPp1cTSXzVZG5QTEomSYsI0Fp hW4iDmBkQORkSISgU4ZmfLGd YPgcA666XQppMlC0MCVfhaRuM8 FgRNSuvNhiNkV6o4M1Pd4WKP15 SI70BO48cDCpb0Q2qYN7X6Df PPVjupktrfkmlRU0PJBsQZHlwP 63Nu2ubUhzPd0hAXAdRMX8WSSl iGArA9CmnW6vUuTvKLWuXLVx H4RihLDyMMitU677KZgqNrA6CH VfsgZwQ8PfUTGwbFkqVvR7s2K5 Jb3RBl98IO03RZ25rAYda0U8 mOP8Q4YlQTAluszgrhdtpCJ5SL RdDKPamJ02Ly1uiWbtXk2uPGRs OTB5BJUrvTIbP6VumS4qNbDo VCQxBBBoR5GuaEUfOInyQ257JB hlKjY7MXVynxUdB6LdYBShpDla CbO4g3D6Ct0PBDzbvjc8W1Go PjwvdHI+EO26BQRsTW44sZVhaL Enh0fzxJi2StNcTGZqBLN3lOoa LBgzt3AcCYDvU86luINid1Z1 IGN (more content not included)... [facility] Coding Summary HTMLBase 64 SiypvrtyEAu6uLl+PGhlYWQ+PE 7SEFGlF42wkEZhrP0PO7wVDA7N WDJOSCXRGN5QQZ0ruVZ5YNwwH0 VybiAv GhnssHWuBS62AZn8VCX0bGlgPS hgnV6erWNeP0m9WoMdEX41iE07 IUatMNRuOtS1RdKtkkictTEv F5izEmUlkWEyBab+PHRhYmxlIH xxFSEpPRwnHZXpFyPgoVqhCS2e Zm4vFYJaNQInnJsbcWRaPvHf a2ngLLPrWAebOO0xnPmoU7PtyR R4DLIcz8s8Cn83bJE+PHRkIHN0 lLwcIOcrw689SvTwf6bgAXN9 xJWsBAziREW3S18bs3U8WROdHN CaUNB6hNR5dD2clGhbmfmrX6Xw dSUgWcS6TQW7tJBxiJ4ixFtj hxzmyZ4fRnt+E49VMA6FZOSZWU 4HItj0T3LrLqjadOY+UF92GEYf EE74iGZnkAHgl8tvyJo8RsHh FXAgQRS0kBgzWFcsk4SzVYHxY7 4kiPSsi5C9ONVpuDajdFCmScFz pBQ2fP7bIVgtosgit6xiledh Wxmhv4rfwv44lF35U16iWEgzNX LhCZC3SDJkNSBcmPlprg9yfB8k Ii8+AZath3urz8bolBn4ItYk PSJurxYafUmdSDD8s9JbAf20A6 OvoGwhj6EdSgk2of76sUFis5B4 kOG5OWvwWNInuB0dULftXkA8 CXYqRuFuqW29sBEiDWpzRg8lfC dwsMksJP2gXVVdanfvPCTgkK3c TKSflEJfeUqgHO8sFFTiszoc g008InSgLZE2CKAuyEIeK9MtaF 3pWuUhSXTwBZSyM9NolKYxCPni V836NJoqAjT3KZWnmoHqW7Yn IBFaoZoaDpD9d2P9Ty4Uf2Upmi vzQWO6RGtgGQG0VqL1TxRdCcO8 C4OjEaj9XUAkyShaHS5gZ0Ip VQMcrvcqqidlfOE1OQTdRRPnaG 02wUVsHZguIb6zl3S1c375BQRv XSZozT87Gv1dpHgnXPCxcPGE sW8khukeq1oqgdkbAlUxBVFqQN p0ZKs1XKAmbYizLoTnKVO7EmI3 ZJG9rIQqjJ1lrClgiduwsO8f Oyc+N75thU8zMMY0PIJ9bwwkBZ NqztBmFX08XN67G2OeVmleiJQb bGU+HVOpmbWxeZjpYZ5eUfIj e9cmt1LiXBriM5MeEYIkEAskNw t0NIDaWIM8mOZ1lM7sABDdVAyt v9K6eOL1I9TackJkcn4gq6su QVHnMAgmZ78tkWTyj1L6RHKybJ R4BJMudBpjMkDdbY31Fxt+PGNv yPllg2HmBfsqn9obr5ibgWy0 YcVrOCXkpyGusWdpAFP1l6ElLd 23N10jNDluJMRwSGKqTSYaLSNc vPuxvm5uiO8qKf4+PGNvbCB3 lKJ9iX4mQUWcWnG7KOigC557Et UrhDBiBzwiu2opj4qktPe6UzIw OCRrghLwmJjqDDI2n3KrHl70 H22zPPntKDKwDVOtJFHaGAMbtZ pfmd5mgZ8yNi8+AD5cp9pzvz93 zU23oTS+FLGaBBV5iNvaBZqg BXCxiL3nVEpzClP0CNLrCmKpgR 57kRTvRJjtSg3zbPjvbQpzUO3n IYKidpysu826GmPqm5nmQRKl dMCaUImkRRK2R90xb9V0BDFpFY HbTZS2oXW4uA6adOrnkfgmcLIs mYylciQtjQhvELukAGeuF732 IHRvcDsnPlBhdGllbnQgTmFtZT e6P7DrVyb4AKMjxYwwQM8ozBFk XJarTd4dlCzfzNfbNF9aKQOh ljuro569ZsRia0njOLUymOVpWH oqOOX2B68pg2T4BUPvCMFnKYK8 kUX3vI0thUbvqisytGFcvQxy ykSgbEliVXyxCOhbQ308EBGvvY acSzNfxrXpIJWjkRB7FY84DT75 rADej5E3lKL3C7ByAHLcczin lmftyOM6TTMvXGWxzJ52Nb7knU anSw6fFJIwPDK9WOXyrJYgR4If uH8zMfQvUEYwNZOxG6KeyLMu XGxzN118ZYxaSkW8FTFfmaIyT1 UdDYHvlXxbNbU1o4U5Pd3MH5N9 TC22KB13jKJqp4C3vMA7X0Jj VGXbrcdckarjiWQ7SHGaTTPzeC 94Ql9ceDpfOy9xGKVnZPN9KIOm fWBeK0EtcK5kFhMkXCMqEUIc M3MjkEEnKYxtS430LRwcGyN0VC AfxnOqW2TrUKNzoVlwHcC1t9Y8 Xh9GAAz8JE31HV41pLPvr4I7 xNY2G1NqJQPxicvohyellMG8JW TlJVLxgA57Rk3puVwyTo4jBSFu PHL8IUAmdGGoM7EyoM9oWxYk ESVuFJMhC4EzwEScDCrnG992DJ hxGzU8BYSqcpScT2IxUTLqnRlt HdM8m4P2Iz0TOKPbBU49HXX2 aSX9YM48OQ68C1AaEqvbaBDduM U+PHRhYmxlIHdpZHRoPScxMDAl KjFjbEkkWW4nKk5hLMRrGWHq bOoprMLnAyYvr7iiFCGrJPfcAN 0kmMphO1IizJN9UPQxz2v7Of42 K49pA0IucEW+YHOloBT6zZU0 eW4lBpRySdI0VGfpF269RfKzwP TfAsscd5zld0ltfZf5ArA1BPZv zmQqmNhtRGY0d2IlMz68C10z IHdpZHRoPSIxNSUiIHZhbGlnbj 5orR4pZy0+YRRknST2jRJ0nJ4l DaOyPgV8AXekH316BuMfiOOr Biroy0rjg1mtfCe1JvPnUEBukz GldYvrCOS6m6LeIn07I0XuhZad o4WrBxu9gw95pPWjk9U3wSO7 M2WoMXBryznitDHcuNdhKG9dLM UqvbwuUTVknO6cLIPcX2g8XcVw IgD7GEimQ8MhvxV9TIXlfBEr PEosSCK2Q95ob3F3BPJzQPDfPH X4xDX5eJ5qyDkdbespnTRstVzt nuAvuYorTEivYHufS370ZFEg wOelHMUdhQ9sCTOuqOZtrZlwBS 4wNTBpbjsnPlNURUlOLCBWSVJH PW4VMKEZSGY3N1WsBvu0DPCk yVsyWQ8tnRWpPGtcBa6dnSlveX xqNU5uMRLfakswCCApyT2hWTZi iLNkiIaqXT8eVZMvzccob092 ZeRgECQ7UPYoaCSjO0AriI3aLn EwONYmCXYsG3IsiDQwDEojP128 YYosXiN4ILEysiNqY6PqQSLj hPqpFgA8s7N1Pv4bZC9bHA3eHF ldFD49AX28mXNdq2R9mWD6I2Kz SCXeomyocbxmvBI4RREyULGn nF69fREiZZooNu5uk5G7d981IH JnKAKcoP20Yy1ayDbvVGUouWYE nC7bofncr8xltmubVtDcSMLp LMe8HRl3MIVbbVgsHwUdXGV1Tl K4KOY5gIWraI2bzIvcfoxysH7h Oyc+AowwFOBcjzY9W2SzOmj7 IYKeqAebXM3acFRkDZkjQt9tdV yyiOxxLG5iDCGvtenjZPTljK2j FTCzwIHylBlnVY1jFEEcqlnk q269NpDpKZV7VULbdVIbF6UrwB 0iBhTuMPVdTRJjW9HgrEXbEUzz O553POphWrD7YURrloEcU4Ft JSDkaNzoUpN0r8S1Ga1ISC3INS L3W6AzGvs8XCXvjPsjUT9hrPIu QOqgAf5niAshqFijYD2sCKYm njfeGSNdtM8cDPBmqDHasPedWW 1aGENxditjm552NvVsGUN4HGVd dBSjQ9BemA3kHvGwBZUgNXJs O5CpaIOqPLhpS693YTiiSnZ1IC MjaxCgH6QsIBVpzJbaEzD7y5T2 Vu6SpBChL8JdO6y6M9KbEjdq dHI+HC03SRDgGN16fFAtpCDhu6 qafYv4MvUkAAPhOJZ4sVczWLxb r9XqDSMnT87myMBuk7A9OLPv oAnoeUSdYkAfmNB4cQ9vQFxzsw rws8ddssdtOfgtc9pelh24cQ32 F11fFDdoMUZcKYHzPPAyCKJa cHhlvn3tcB5iUg9+WTOomSP5rO V3jI5qOaLqYbH5EEbqJ628IwPj lCUgKwmvr5fqw8avgYz3KfZp STDtsxSvxWliIZK7k6KoWw31R3 9sIHdpZHRoPSIyMCUiIHZhbGln uk1npF7cWw8+DC2gv6otyc31 mO32qVR+NHUrYGR9vEdlKNppCT BtxI5aDIuqHsG3GXYgHnVgnM31 oRXmMSswNp6mvVevxKmyVV9d KAKidrvgt689MyUfq4fkMNEviE RaVAxwCBP5T74nc3C8MVLfKOSt JJA4uUP2dY6uoKpyiesggGQn tPmdlqBtnEroFOloMOpzX796DR LtpPlhJgFyxGHwW3iiwxBRQA0y OjwvdGQ+PUTaPRM2lIbyTXwh EHVhhW3aZOZdN5q4NnHcQnC2YQ gqE5TwwmN2JTRjsMJpHSJmlHCV nM7exdrxv0jxsrbuEpBzCTVn JZz8UNw8EWMidVhuSiJpCVN0Px I3VSK9mJYvzS1uzZosreqloT5n Oyc+RklOOjwvdGQ+PHRkIHN0 xUigBQziWZAvtX6zDKPrA4p1Rb OrRgV4RArkK5EynfR7ALOnwVVs BNYtcVQEfA0rbybgi6gcbxpq WkZjQRTsVMi5IEy5WLHwaVkcEt JgYJA4RjW4IAH4rLAelZ3bhKxa egrtqE9xPna+TVJOOjwvdGQ+ EVAkWJC8mPmzZPteCALvyL1iIU LgG2r7LuSvEyY8USqrP1ErwmI4 TIUjhZDbBHZbxKFEjI4xocpi l4ksfwxjZeCtPNNlNDh2IBg0AU OkdVudJqTbFSH2KkG6CSW4uTBc qP7toWacxdatuS0vZuv+UGF5 CSO9BJ39ND62Z4OoWjiymVCzhO U+PHRhYmxlIHdpZHRoPScxMDAl OuMwzGbpVY5oRb1xOVDpQAFz bGx (more content not included)... Normal [facility] ED Clinical Summaryon 2021 ED Clinical Summary [facility] - Emergency Department [address] [place] [address] ED Clinical Summary PERSON INFORMATION Name: ZULEIKA WYATT Age: 31 Years Sex: FEMALE : 1990 MRN: Acct#: Visit Reason: Rib/trunk pain-swelling; ABD PAIN Arrival: 11/13/2021 16:30:24 Discharge: 11/13/2021 18:01:00 LOS: 000 01:31 Check In: 11/13/2021 16:30:24 Checkout:11/13/2021 18:01:00 Address: [address] [place] [address] [address] [facility] [address] PCP: Andie Stoddard PROVIDER INFORMATION Provider Role [...] With: Address: When: CUONG ORTIZ [address] [place] [address] Within 1 to 2 days [...] results be sent to Dr. Ortiz, your RELOCATION MANAGER physician. She will contact his office tomorrow [...] understanding of instructions given Comment: [facility] ED Note-Nursingon 11-13-2021 ED Note-Nursing pt [...] steady gait and no assistance. [facility] ED Patient Summaryon 022 ED Patient Summary [facility] - Emergency Department [address] [place] [address] PATIENT DISCHARGE INSTRUCTIONS Patient Information Name: ZULEIKA WYATT Age: 31 Years Date of : 1990 Reason For Visit: Rib/trunk pain-swelling; ABD PAIN Arrival Time: 11/13/2021 16:30:24 Primary Care Physician: Andie Stoddard Attending Physician: Gamaliel Wyman MD Comment: Visit Diagnosis: Diagnoses This Visit Elevated blood pressure reading (R03.0) History of abdominal pain (Z87.898) at early stage (Z34.90) Rib/trunk pain-swelling ([id number]) Prescription Information: If you have been given a prescription for narcotics, seek immediate medical attention if you have any difficulty breathing or any sudden status changes such as confusion and sleepiness. If you or anyone you know is experiencing suicidal thoughts, mental health, alcohol and/or drug addiction problems; contact the [facility] 07/01 Crisis Hotline -Text 4HBYN to 218288. If you received any narcotics, sedation, or [...] legal documents With: Address: When: CUONG ORTIZ [address] [place] [address] Within 1 to 2 days Comments: Diagnosis [...] results be sent to Dr. Ortiz, your RELOCATION MANAGER physician. She will contact his office tomorrow [...] a doctor, nurse practitioner, or physician?s assistant farm operations manager for ongoing care. If your symptoms become [...] so we can reach you if necessary. [facility] has provided you with a complete list of medications post discharge. Please inform your curtain hemmer automatic/provider of your visit and for further instruction [...] Temporal: 3 (more content not included)... Normal [facility] hCG Quantitativeon 2 hCG Quantitative 14663.0 mIU/mL High 0.0-0.6 [facility] Comment on above: Order Comment: Lucy whitney call or fax results to Dr. Ortiz's office Result Comment: Resu lt confirmed by dilution Post-Menopausal Reference Range is: 0.1-11.6 mIU/mL Performed By: #### 7 [id number] #### [facility] (DEFAULT) [address] [place] [address] Coding Summary.on 12-19-2018 Coding Summary. CODING DATE: 019 FINAL [facility] DSC STATUS: Left Against Medical Advice [...] Boykin Date Saved: 12/19/2018 10:35 am Normal [facility] ED Clinical Summaryon 2018 ED Clinical Summary (Inserted Image. Elena ble to display) [place] [id number] ED Clinical Summary Person Information Name: ZULEIKA VILLALTA/[facility] Age: 28 Years : 1990 12:00 AM Sex: Female Language: PCP: Marital Status: Phone: [phone] Visit Id: Visit Reason: Test; MENSTRUAL PROBLEMS [...] 12/15/2018 5:58 PM 12/15/2018 5:58 PM ADDRESS: [address] [place] [address] [address] [place] [id number] PHYS DOC NOTES: MEDICAL INFORMATION: Prescriptions Given: PATIENT EDUCATION INFORMATION: Instructions: Follow up: DIAGNOSIS: Normal [facility] ED Patient Education Noteon 12-15-2018 ED Patient Education Note Normal [facility] ED Patient Summaryon 019 ED Patient Summary (Inserted Image. Elena ble to display) [place] [id number] Patient Discharge Instructions Person Information Name: ZULEIKA VILLALTA Age: 28 Years Arrival Date: 12/15/2018 4:37 PM Discharge Diagnosis: Primary Care Physician: Provider Information Primary Provider: Advanced Supervisor Stripping:None The exam and treatment you received in the Emergency Department were for an urgent problem and are not intended as complete care. It is important that you follow up with a doctor, nurse practitioner, or physician?s assistant farm operations manager for ongoing care. If your symptoms become [...] opioids can be used to help relieve extemcir-hp-hiimaq pain and are often prescribed following a [...] with addiction, tell your health patient care manager and ask for guidance or call [facility]?S National Helpline at 6-536-957-YNTG. e Source: [place] Department of Health and Human Services/Center for Disease Control & Prevention [facility] Medications Given: Medication Dose Route No medications found. Medication Information: Comment: Pharmacy Information: Thank you for choosing [facility] Patient Education Materials: JADEN Jacome [place] , have received the following patient education materials/instructions and have verbalized understanding: Patient Education Materials: Follow-up Instructions: Prescriptions: Patient Signature __ Date Clinician/Nurse Signature Date 12/15/18 17:58:10 [facility] Progress Note-Nurseon 2018 Progress Note-Nurse [...] to take care of her daughter. Normal [facility] U BetaHcg Qualon 12-15-2018 HCG.beta subunit (U) [Moles/Vol] Negative Normal [facility] Comment on above: Performed By: #### 2 [id number], [id number] #### [facility] Laboratory [address] [place] [address] UA With Cult Reflexon 2018 Bacteria LM Ql (Urine sed) TRACE Normal Trace [facility] Comment on above: Performed By: #### 2 [id number], [id number] #### [facility] Laboratory [address] [place] [address] Bilirubin Ql (U) Negative Normal Negative [facility] Comment on above: Performed By: #### 2 [id number], [id number] #### [facility] [address] [place] [address] Clarity (U) CLEAR Normal Clear [facility] Comment on above: Performed By: #### 2 [id number], [id number] #### [facility] Laboratory [address] [place] [address] Color (U) YELLOW Normal Yellow [facility] Comment on above: Performed By: #### 2 [id number], [id number] #### [facility] Laboratory [address] [place] [address] Epithelial cells.squamous LM.HPF (Urine sed) [#/Area] 0-2 Normal 0-2 [facility] Comment on above: Performed By: #### 2 [id number], [id number] #### [facility] Laboratory [address] [place] [address] Glucose Test strip (U) [Mass/Vol] Negative Normal Negative [facility] Comment on above: Performed By: #### 2 1506155, [id number] #### [facility] Laboratory [address] [place] [address] Hemoglobin Ql (U) Negative Normal Negative [facility] Comment on above: Performed By: #### 2 6921865, [id number] #### [facility] Laboratory [address] [place] [address] Ketones (U) [Mass/Vol] Negative Normal Negative [facility] Comment on above: Performed By: #### 2 8782701, [id number] #### [facility] Laboratory [address] [place] [address] [place].plasma/[place] .RBC (Bld) [Mass ratio] 0-3 Normal 0-3 [facility] Comment on above: Performed By: #### 2 [id number], [id number] #### [facility] [address] [place] [address] Nitrite Ql (U) Negative Normal Negative [facility] Comment on above: Performed By: #### 2 9227711, [id number] #### [facility] [address] [place] [address] pH (U) 6.5 [pH] 5.0-9.0 [facility] Comment on above: Performed By: #### 2 3196582, [id number] #### [facility] [address] [place] [address] Protein (U) [Mass/Vol] Negative Normal Negative [facility] Comment on above: Performed By: #### 2 [id number], [id number] #### [facility] Laboratory [address] [place] [address] Specific gravity (U) [Rel density] 1.010 1.005-1.03 0 [facility] Comment on above: Performed By: #### 2 1488211, [id number] #### [facility] Laboratory [address] [place] [address] UA Spec Desc Clean Catch Normal [facility] Comment on above: Performed By: #### 2 7829263, [id number] #### [facility] [address] [place] [address] Urobilinogen Qn (U) 0.2 {Pamela'U}/dL Normal 0.0-1.0 [facility] Comment on above: Performed By: #### 2 3098579, [id number] #### [facility] [address] [place] [address] WBC Auto Ql (U) Negative Normal Negative [facility] Comment on above: Performed By: #### 2 0237433, [id number] #### [facility] [address] [place] [address] WBC LM.HPF (Urine sed) [#/Area] 0-5 Normal 0-5 [facility] Comment on above: Performed By: #### 2 8478279, [id number] #### [facility] [address] [place] [address] Auto Diffon 12-12-2017 Basophils Auto #/vol (Bld) 0.1 E3/mcL Normal 0.0-0.2 [facility] Comment on above: Order Comment: Order Added by Discern Expert. Performed By: #### 2 966568 ####KADEN [address] [place] [address] Basophils/100 WBC Auto (Bld) 0.9 % Normal 0.0-2.0 [facility] Comment on above: Order Comment: Order Added by Discern Expert. Performed By: #### 2 163394 ####KADEN [address]ksPrfi[address] [place] [address] Eos Absolute 0.0 E3/mcL Normal 0.0-0.7 [facility] Comment on above: Order Comment: Order Added by Discern Expert. Performed By: #### 2 728042 ####KADEN [address]Knf[address] [place] [address] Eosinophils/100 leukocytes 0.4 % Normal 0.0-11.0 [facility] Comment on above: Order Comment: Order Added by Discern Expert. Performed By: #### 2 055246 ####KADEN [address] [place] [id number] Lymphocytes 1.4 E3/mcL Normal 1.2-3.4 [facility] Comment on above: Order Comment: Order Added by Discern Expert. Performed By: #### 2 714373 ####KADEN [address] [place] [address] Lymphocytes/100 leukocytes 16.6 % Low 20.0-55.0 [facility] Comment on above: Order Comment: Order Added by Discern Expert. Performed By: #### 2 352265 ####KADEN [address] [place] [address] [place] Absolute 0.5 E3/mcL Normal 0.0-0.7 [facility] Comment on above: Order Comment: Order Added by Discern Expert. Performed By: #### 2 472271 ####KADEN [address] [place] [address] Monocytes/100 leukocytes 5.5 % Normal 0.0-10.0 [facility] Comment on above: Order Comment: Order Added by Discern Expert. Performed By: #### 2 002157 ####KADEN [address] [place] [address] Neutro Absolute 6.7 E3/mcL High 1.4-6.5 [facility] Comment on above: Order Comment: Order Added by Discern Expert. Performed By: #### 2 407941 ####KADEN [address] [place] [address] Neutro Auto 76.6 % High 37.0-75.0 [facility] Comment on above: Order Comment: Order Added by Discern Expert. Performed By: #### 2 941475 ####KADEN [address] [place] [address] CBC w/ Auto Diffon 8 Erythrocyte distribution width Auto Ratio (RBC) 15.0 % High 11.5-14.5 [facility] Comment on above: Performed By: #### 2 058069 ####KADEN [address] [place] [address] Erythrocytes (RBC) 4.94 E6/mcL Normal 3.90-5.40 [facility] Comment on above: Performed By: #### 2 711195 ####KADEN [address] [place] [address] Hematocrit (HCT) 40.0 % Normal 36.0-48.0 [facility] Comment on above: Performed By: #### 2 523264 ####KADEN [address]SpaLwtq[address] [place] [address] Hemoglobin mass conc (Bld) 13.0 g/dL Normal 12.0-16.0 [facility] Comment on above: Performed By: #### 2 409313 ####KADEN [address]VtuBrbl[address] [place] [address] MCH 26.2 pg Low 27.0-31.0 [facility] Comment on above: Performed By: #### 2 436616 ####KADEN [address] [place] [address] MCHC mass conc (RBC) 32.4 g/dL Low 33.0-37.0 [facility] Comment on above: Performed By: #### 2 449539 ####KADEN [address] [place] [id number] MCV 81.0 fL Normal 78.0-100.0 [facility] Comment on above: Performed By: #### 2 820797 ####KADEN [address]qRyif[address] [place] [address] Platelet mean volume (PMV) 7.5 fL Normal 7.4-11.0 [facility] Comment on above: Performed By: #### 2 732137 ####KADEN [address]Ofhv[address] [place] [address] Platelets 347 E3/mcL Normal 130-400 [facility] Comment on above: Performed By: #### 2 855042 ####KADEN [address]IybYxfa[address] [place] [address] WBC (Leukocytes) 8.7 E3/mcL Normal 3.6-11.0 [facility] Comment on above: Performed By: #### 2 768841 ####KADEN [address]fRoxv[address] [place] [address] CMPon 12-12-2017 Alanine aminotransferase (ALT) 14 Int._Unit/L Normal 10-40 [facility] Comment on above: Performed By: #### 2 571549 ####KADEN [address] [place] [address] Albumin 3.8 g/dL Normal 3.2-5.0 [facility] Comment on above: Performed By: #### 2 685575 ####KADEN [address] [place] [address] Albumin/Globulin Ratio 1.0 {ratio} Low 1.1-1.9 [facility] Comment on above: Performed By: #### 2 776874 ####KADEN [address] [place] [address] Alk Phos 75 Int._Unit/L Normal 42-121 [facility] Comment on above: Performed By: #### 2 323770 ####KADEN [address] [place] [address] Aspartate aminotransferase (AST) 18 Int._Unit/L Normal 10-42 [facility] Comment on above: Performed By: #### 2 160147 ####KADEN [address] [place] [address] Bili Total 1.0 mg/dL Normal 0.2-1.0 [facility] Comment on above: Performed By: #### 2 819430 ####KADEN [address] [place] [address] BUN/Creatinine Ratio 12.5 ratio Normal 5.4-30.0 [facility] Comment on above: Performed By: #### 2 496330 ####KADEN [address] [place] [address] Creatinine 0.8 mg/dL Normal 0.6-1.3 [facility] Comment on above: Performed By: #### 2 534486 ####KADEN [address] [place] [address] Globulin 3.8 g/dL Normal 2.0-4.0 [facility] Comment on above: Performed By: #### 2 524856 ####KADEN [address]asNsyc[address] [place] [address] Protein 7.6 g/dL Normal 6.4-8.3 [facility] Comment on above: Performed By: #### 2 423237 ####KADEN [address] [place] [address] Urea nitrogen 10 mg/dL Normal 7-18 [facility] Comment on above: Performed By: #### 2 556702 ####KADEN [address] [place] [address] Calcium 9.3 mg/dL Normal 8.4-10.2 [facility] Comment on above: Performed By: #### 2 062059 ####KADEN [address] [place] [address] Chloride 105 mmol/L Normal 98-107 [facility] Comment on above: Performed By: #### 2 873796 ####KADEN [address] [place] [address] CO2 25.1 mmol/L Normal 24.0-30.0 [facility] Comment on above: Performed By: #### 2 894601 ####KADEN [address] [place] [address] Glucose mass conc 101 mg/dL High 70-99 [facility] Comment on above: Performed By: #### 2 252057 ####KADEN [address] [place] [address] Potassium molar conc 3.4 mmol/L Low 3.5-5.1 [facility] Comment on above: Performed By: #### 2 994539 ####KADEN [address] [place] [address] Sodium 140 mmol/L Normal 136-145 [facility] Comment on above: Performed By: #### 2 497586 ####KADEN [address]KsdEuwk[address] [place] [address] Lipase Levelon 12-12-2017 Lipase Lvl 30 U/L Normal 8-57 [facility] Comment on above: Performed By: #### 2 048990 ####KADEN [address] [place] [address] UA Completeon 12-12-2017 UA Blood 3+ Normal Negative [facility] Comment on above: Performed By: #### 2 543817 ####KADEN [address]Yvtx[address] [place] [address] UA Bacteria Trace Abnormal None [facility] Comment on above: Performed By: #### 2 660573 ####KADEN [address] [place] [address] UA Clarity SltCloudy Abnormal Clear [facility] Comment on above: Performed By: #### 2 704775 ####KADEN [address]Igfz[address] [place] [address] UA Hyal Cast 0-2 Normal 0-2 [facility] Comment on above: Performed By: #### 2 496846 ####KADEN W[address]Cpbd8996 [place] [address] UA Leuk Est 3+ Abnormal Negative [facility] Comment on above: Performed By: #### 2 951282 ####KADEN YamYzll[address] [place] [address] UA Mucous Many Abnormal Trace [facility] Comment on above: Performed By: #### 2 650159 ####KADEN VtvMfpk08[address] [place] [address] UA Nitrite Negative Normal Negative [facility] Comment on above: Performed By: #### 2 570699 ####KADEN X[address]Pmoa[address] [place] [address] UA pH 5.0 Normal 4.6-8.0 [facility] Comment on above: Performed By: #### 2 217536 ####KADEN [address]zFnnq[address] [place] [address] UA Protein 1+ Abnormal Negative [facility] Comment on above: Performed By: #### 2 780446 ####KADEN [address]Siqo[address] [place] [address] UA Spec Grav 1.026 Normal 1.003-1.03 0 [facility] Comment on above: Performed By: #### 2 790477 ####KADENMorelia [address]Yszl[address] [place] [address] UA Squam Epithelial 0-5 Normal 0-5 [facility] Comment on above: Performed By: #### 2 273305 ####KADEN [address] [place] [address] UA Urobilinogen 2.0 mg/dL Abnormal [facility] Comment on above: Performed By: #### 2 390464 ####KADEN [address] [place] [address] UA WBC >50 Abnormal 0-5 [facility] Comment on above: Performed By: #### 2 901228 ####KADEN [address] [place] [address] Urine, color Yellow Normal Yellow [facility] Comment on above: Performed By: #### 2 128065 ####KADEN [address] [place] [address] Urine, erythrocytes 20-50 Abnormal 0-3 [facility] Comment on above: Performed By: #### 2 578411 ####KADEN [address] [place] [address] Urine, glucose Negative Normal Negative [facility] Comment on above: Performed By: #### 2 096894 ####KADEN [address] [place] [address] Urine, ketones presence Trace Normal [facility] Comment on above: Performed By: #### 2 474954 ####KADEN [address] [place] [address] Urine, urobilinogen Negative Normal Negative [facility] Comment on above: Performed By: #### 2 235930 ####KADEN [address] [place] [address] eGFRon 12-12-2017 eGFR AA >60 Normal [facility] Comment on above: Order Comment: Order Added by Discern Expert. Performed By: #### 2 438882 ####KADEN [address]QqlAtaa[address] [place] [address] eGFR (non-black) mL/min/{1.73_m2} Normal [facility] Comment on above: Order Comment: Order Added by Discern Expert. Performed By: #### 2 368114 ####KADEN [address] [place] [address] HISTORY PHYSICALon 8 HISTORY PHYSICAL HNO ID: [id number] thor: Clara ChaoeService: Maternal MedicineAuthor Type: PhysicianType: HANDPFiled: 12/02/2017 9:04 AMNote Text:[facility] DOCUMENTDISCHARGE SUMMARYPatient Name: Zuleika Gtz [...] 4 weeks with provider.Clara Jama, DO Normal [facility] PROGRESSon 12-02-2017 PROGRESS HNO ID: [id number] thor: Marie Lema (Res) LendeService: ObstetricsAuthor Type: [...] with more than 50% of the total vwdj-lw-jgjmzcoo of the visit in counseling / coordination [...] decreasing.Ambulating without difficulty.OBJECTIVE:PHYSI GEN EXAM:Heart: RR, S1, A8Nsthy: clear to auscultationAbdomen: Soft Bowel sounds present [...] December 02, 2017 : 5:45 AM Normal [facility] SOCIAL WORKon 12-02-2017 SOCIAL WORK HNO ID: [id number] thor: Meredith Ramsay (Sw)vice: Social WorkAuthor Type: Social WorkerType: Social WorkFiled: 12/02/2017 12:25 PMNote Text:SOCIAL WORK CONSULT NOTESERVICE DATE: 12/02/2017SERVICE TIME: 1015Referred by: Jose for visit:Maternal/Infant - adjustment to conditionLiving Arrangement: HomeLives With: PartnerFinancial Resources: DisabledPrimary Contact:Extended Emergency Contact Information DARRELL BRANCH IIPrcolumbus regional healthcare systemadelaida Emergency Contact: No,ContactRelation: OtherSupportive: YesOther Important Patient [...] hospital. (FOBparents are Anamika Munoz of [address] [facility] [facility]).Per pt and FOB, all needed baby supplies and equipment are at the [facility] and a nursery has been set up.Per pt, name of baby girl is Martha Branch.Pt states she is on SSI and WIC.Pt shares that she is in ongoing counseling at [facility] in [place] and has appointments 2 x per month.Discussed with pt and FOB signs and sx of depression; safe babysleep and discussed ways to deal with crying infant. Pt again states sheis going to rely on her support system.No additional issues identified at this time. Encouraged pt and FOB toutilize services through [facility]. Providedcontact information.Outcome/Recomm endations:[facility]istance through [facility] spent (minutes): 60SIGNATURE: CARLA Goncalves PATIENT NAME: Zuleika Hernandez: December 02, 2017 : 11:10 AM PAGER/CONTACT#: Debo [facility] ANES INTRAOPon 12-01-2017 ANES INTRAOP HNO ID: [id number] thor: Terrance Lockhartervice: AnesthesiologyAuthor Type: Nurse AnesthetistType: Anesthesia IntraOpFiled: 12/01/2017 9:41 AMNote Text:ANALGESIA PROGRESS RECORDCATHETER REMOVAL/END OF CASESERVICE DATE: 12/01/2017REMOVAL DATE AND TIME: 11/30/2017, 1953DELIVERY DATE AND TIME: 11/30/2017 at 5:49 PMCATHETER REMOVAL:Catheter Removal: See [facility] Nursing noteSIGNATURE: Terrance Contreras APRN.CRNA PATIENT NAME: Zuleika Hernandez: December 01, 2017 : 9:40 AM PAGER/CONTACT #: [facility] ANES Keke 12-01-2017 ANES POST HNO ID: [id number] thor: Terrance Lockhartervice: AnesthesiologyAuthor Type: Nurse AnesthetistType: [...] : 9:42 AM PAGER/CONTACT #: [facility] PROGRESSon 12-01-2017 PROGRESS HNO ID: [id number] thor: Marie Lema (Joaquín) LendeService: ObstetricsAuthor Type: [...] decreasing.Ambulating without difficulty.OBJECTIVE:PHYSI GEN EXAM:Heart: RR, S1, V4Ivbmm: clear to auscultationAbdomen: Soft Bowel sounds present [...] December 01, 2017 : 6:40 AM Normal [facility] ABO/Rh Confirmationon 2017 ABO group Nom (Bld) A Normal [facility] Comment on above: Performed By: #### A JESSIE #### [facility] [address] [place] [address] RH Type Positive Normal [facility] Comment on above: Performed By: #### A JESSIE #### [facility] [address] [place] [address] ANES PREOPon 11-30-2017 ANES PREOP HNO ID: [id number] thor: Aaron (Chiara) EarleyService: AnesthesiologyAuthor Type: Nurse [...] of Sleep Apnea: DeniesHematocritDate Value Ref Range Knyddr0111/30/2017 32.3 (L) 34.1 - 44.9 % Final Platelet CountDate Value Ref Range Rnhvcu1711/30/2017 193 182 - 369 thou/cmm Final Vitals: 055226 965525 139 143BP: 142/75 138/81Pulse: 75 81Resp:Temp: 36.6 [...] as needed. Disp: Rfl:Inpatient medications reviewed in [facility].I have interviewed and examined the patient. I have reviewed the medicalrecord , pertinent consults and/or the pre-anesthesia evaluation,pertinent labs, and test results.Significant changes in the patient's condition since the History andPhysical, not otherwise documented in primary service progress notes: [facility] contains updated information obtained within 48 hours ofSurgery/Procedure.SIGNAT URE: Hema Cuellar APRN.QUALITY REVIEW SPECIALIST PATIENT NAME: Zuleika LambATE: November 30, 2017 : 12:13 PM : 1990 Normal [facility] Auto Diffon 11-30-2017 Basophils Auto #/vol (Bld) 0.1 E3/mcL Normal 0.0-0.2 [facility] Comment on above: Order Comment: Order Added by Discern Expert. Performed By: #### 2 338560 ####KADEN [address]YdaWnqi[address] [place] [address] Basophils/100 WBC Auto (Bld) 0.9 % Normal 0.0-2.0 [facility] Comment on above: Order Comment: Order Added by Discern Expert. Performed By: #### 2 857604 ####KADEN [address]AbrCjlx[address] [place] [address] Eos Absolute 0.1 E3/mcL Normal 0.0-0.7 [facility] Comment on above: Order Comment: Order Added by Discern Expert. Performed By: #### 2 543763 ####KADEN OfeSobt[address] [place] [address] Eosinophils/100 leukocytes 1.0 % Normal 0.0-11.0 [facility] Comment on above: Order Comment: Order Added by Discern Expert. Performed By: #### 2 423714 ####KADEN LufGmbe7748 [place] [address] Lymphocytes 2.0 E3/mcL Normal 1.2-3.4 [facility] Comment on above: Order Comment: Order Added by Discern Expert. Performed By: #### 2 942773 ####KADEN XsfTfxp8454 [place] [address] Lymphocytes/100 leukocytes 22.1 % Normal 20.0-55.0 [facility] Comment on above: Order Comment: Order Added by Discern Expert. Performed By: #### 2 585367 ####KADEN VrwNywx40[address] [place] [address] [place] Absolute 0.7 E3/mcL Normal 0.0-0.7 [facility] Comment on above: Order Comment: Order Added by Discern Expert. Performed By: #### 2 810744 ####KADEN BairdKumBnuf[address] [place] [address] Monocytes/100 leukocytes 7.5 % Normal 0.0-10.0 [facility] Comment on above: Order Comment: Order Added by Discern Expert. Performed By: #### 2 794395 ####KADEN [address] [place] [address] Neutro Absolute 6.1 E3/mcL Normal 1.4-6.5 [facility] Comment on above: Order Comment: Order Added by Discern Expert. Performed By: #### 2 143987 ####KADEN BairdDbfKish[address] [place] [address] Neutro Auto 68.5 % Normal 37.0-75.0 [facility] Comment on above: Order Comment: Order Added by Discern Expert. Performed By: #### 2 288281 ####KADEN [address] [place] [address] CBC w/ Auto Diffon 8 Erythrocyte distribution width Auto Ratio (RBC) 14.3 % Normal 11.5-14.5 [facility] Comment on above: Performed By: #### 2 403331 ####KADEN [address] [place] [address] Erythrocytes (RBC) 4.34 E6/mcL Normal 3.90-5.40 [facility] Comment on above: Performed By: #### 2 030893 ####KADEN FwgAcyo7890 [place] [address] Hematocrit (HCT) 35.1 % Low 36.0-48.0 [facility] Comment on above: Performed By: #### 2 768608 ####KADEN [address] [place] [address] Hemoglobin mass conc (Bld) 11.6 g/dL Low 12.0-16.0 [facility] Comment on above: Performed By: #### 2 977926 ####KADEN [address]FlyWiyg[address] [place] [address] MCH 26.6 pg Low 27.0-31.0 [facility] Comment on above: Performed By: #### 2 964515 ####KADEN [address] [place] [address] MCHC mass conc (RBC) 32.9 g/dL Low 33.0-37.0 [facility] Comment on above: Performed By: #### 2 157555 ####KADEN [address] [place] [address] MCV 80.9 fL Normal 78.0-100.0 [facility] Comment on above: Performed By: #### 2 791938 ####KADEN [address] [place] [address] Platelet mean volume (PMV) 7.6 fL Normal 7.4-11.0 [facility] Comment on above: Performed By: #### 2 905805 ####KADEN [address] [place] [address] Platelets 217 E3/mcL Normal 130-400 [facility] Comment on above: Performed By: #### 2 206046 ####KADEN [address] [place] [address] WBC (Leukocytes) 8.8 E3/mcL Normal 3.6-11.0 [facility] Comment on above: Performed By: #### 2 774481 ####KADEN [address] [place] [address] CONSULTon 11-30-2017 CONSULT HNO ID: [id number] thor: Marie Lema (Res) LendeService: ObstetricsAuthor Type: [...] T0 L0 SAB1 TAB0 Ectopic0 Multiple0 Live Swjlcl5Obto of Baby 1: Not recorded Date: 2014 [...] pupils equal, no thyromegalyLungs: clearHeart: RR, S1, W6Szpymej: soft, nontender, no massesUterus: soft, NTExtremities: 1+ [...] Epi prn4. FB soon5. [place] [address]. anomalies- prominent cisterna magna, bilateral periventrcularnodular heterotopia, [...] as . H/o tobacco abuseSigned out to [facility] [place] for deliveryDr. Amado reviewed with Dr. MaldonadoSIGNATURE: Marie Hassan DO PATIENT NAME: Zuleika BecerrilMTATE: November 30, 2017 : 6:49 AM PAGER/CONTACT #: [phone] Normal [facility] HISTORY PHYSICALon 8 HISTORY PHYSICAL HNO ID: [id number] thor: Marie Lema (Res) JabiereService: ObstetricsAuthor Type: [...] T0 L0 SAB1 TAB0 Ectopic0 Multiple0 Live Tirbjh2Miae of Baby 1: Not recorded Date: 2014 [...] pupils equal, no thyromegalyLungs: clearHeart: RR, S1, Y5Tzzgyce: soft, nontender, no massesUterus: soft, NTExtremities: 1+ [...] Epi prn4. FB soon5. [place] [address]. anomalies- prominent cisterna magna, bilateral periventrcularnodular heterotopia, [...] EF 55%.10. H/o maternal clubfoot-s/p repair as ejcmtc53. H/o tobacco abuseSigned out to [facility] delivery[facility]/w Dr. AmadoSIGNATURE: Marie Hassan DO PATIENT NAME: Zuleika LambATE: November 30, 2017 : 6:49 AM PAGER/CONTACT #: [phone] Normal [facility] Hemogramon 11-30-2017 Erythrocyte distribution width Ratio (RBC) 13.6 % Normal 11.7-14.4 [facility] Comment on above: Performed By: #### C BC1 #### [facility] [address] [place], [place] [address] Hematocrit Volume Fraction (Bld) 32.3 % Low 34.1-44.9 [facility] Comment on above: Performed By: #### C BC1 #### [facility] [address] [place] [address] Hemoglobin mass conc (Bld) 10.4 g/dL Low 11.2-15.7 [facility] Comment on above: Performed By: #### C BC1 #### [facility] [address] [place] [address] MCH Entitic mass (RBC) 26.4 pg Normal 25.6-32.2 [facility] Comment on above: Performed By: #### C BC1 #### [facility] [address] [place] [address] MCHC mass conc (RBC) 32.2 % Normal 31.6-34.[address] [facility] Comment on above: Performed By: #### C BC1 #### [facility] [address] [place] [address] MCV Entitic volume (RBC) 82.0 fL Normal 79.4-94.8 [facility] Comment on above: Performed By: #### C BC1 #### [facility] [address] [place] [address] Platelet mean volume Entitic volume (Bld) 9.9 fL Normal 9.4-12.3 [facility] Comment on above: Performed By: #### C BC1 #### [facility] [address] [place] [address] Platelets #/vol (Bld) 193 thou/cmm Normal 182-369 A [facility] Comment on above: Performed By: #### C BC1 #### [facility] [address] [place] [address] RBC #/vol (Bld) 3.94 mil/cmm Normal 3.93-5.22 [facility] Comment on above: Performed By: #### C BC1 #### [facility] [address] [place] [address] RDW SD 40.6 fl Normal 36.4-46.3 [facility] Comment on above: Performed By: #### C BC1 #### [facility] [address] [place], [place] [address] WBC #/vol (Bld) 9.85 thou/cmm Normal 3.98-10.04 [facility] Comment on above: Performed By: #### C BC1 #### [facility] [address] [place], [place] [address] LD NOTEon 11-30-2017 LD NOTE HNO ID: [id number] thor: Marie Lema (Res) LendeService: ObstetricsAuthor Type: ResidentType: LANDD Delivery NoteFiled: 11/30/2017 6:19 PMNote Text: -------Attestation signed by Serenity Maldonado MD at 12/01/2017 6:04 PMI saw and evaluated the patient. I reviewed the resident's note and agree,except that patient seen by [facility] (patient has FAS, fetus with multipleanomlaies) service, consult placed to [facility] for management of labor AND delivery.Essential primip presented at 39w with PROM, had Pugh balloon AND Pitocin foraugmentaion. Late in labor noted tachycardia that improved with IVFB ANDTylenol (mother rico had elevated temp but felt warm). [facility] [place] [facility] NICU team for evaluation (was allowed tohave delivery to abdomen AND 30 sec delay for cord clamping). Pushed well AND hadSVD of a viable female (APGARS 8,9, weight of 3200g/7#1oz) over intactperineum. Uterus slightly boggy after delivery, responded to massage AND Pitocininfusion, EBL ~500cc.Serenity Maldonado MD ----OBSTETRICSDELIVERY SUMMARY - VAGINAL DELIVERYGestational Age at Delivery: 16m6gQlaquyz Date: 11/30/2017Service Time: 1800KeeganBg Zuleika Dillard [[id number]]Labor EventsRupture Date: 11/30/17Rupture Time: 224Rupture Type: PROMFluid [...] EpiduralMeasurements, Apgars:Code Uziel Called: YesType of Code [place] Team Needed: PlannedA digital sweep of the [...] November 30, 2017 : 6:15 PM Normal [facility] NURSING PROGon 11-30-2017 NURSING PROG HNO ID: [id number] thor: Marguerite (Rn) ANEUDY Albarranervice: (none)Author Type: Registered NurseType: Nursing Progress NoteFiled: 11/30/2017 7:06 PMNote Text: INTRODUCED SELF TO PATIENT AND SUPPORT PERSONS. PLAN OF CARE DISCUSSED.ASSESSMENT PERFORMED. PATIENT DENIES COMPLAINTS. Normal [facility] NURSING PROG HNO ID: [id number] thor: Darcie (Rn) ANEUDY Landeroservice: NursingAuthor Type: Registered NurseType: Nursing Progress NoteFiled: 11/30/2017 10:03 AMNote Text:Patient up to shower for comfort. Boyfriend at side. On telemetrymonitors. RN remains in room. FHR difficult to maintain continuoustracing Normal [facility] NURSING PROG HNO ID: [id number] Author: Norah (Rn) KARRI Eastman Service: Nursing Author Type: Registered Nurse Type: Nursing Progress Note Filed: 11/30/2017 7:18 AM Note Text: Report given to Darcie DURAN and care transferred at this time. Normal [facility] PROCEDUREon 11-30-2017 PROCEDURE HNO ID: [id number] thor: Aaron (Detasseler) EarleyService: AnesthesiologyAuthor Type: Nurse AnesthetistType: ProceduresFiled: 11/30/2017 [...] Catheter in Epidural Space: 5 cmInterspace: approximately L2-U4Pqblvf of Attempts: 1Wet Tap Complication: NoDural Puncture [...] nurses' documentation for additional vitals.SIGNATURE: Hema Cuellar APRN.QUALITY REVIEW SPECIALIST PATIENT NAME: Zuleika BecerrilnDATE: November 30, 2017 : 12:27 PM PAGER/CONTACT #: [facility] PROGRESSon 11-30-2017 PROGRESS HNO ID: [id number] thor: Marie Lema (Res) Tristanrvice: ObstetricsAuthor Type: ResidentType: Progress NotesFiled: 11/30/2017 5:04 PMNote Text:UpdatePatient is pushing in the OR. Cat I FHRT with baseline around 160s. updated and in house.Franki Neri 2017 5:04 PM [facility] PROGRESS HNO ID: [id number] Author: Darcie (Rn) KARRI Landeros Service: Nursing Author Type: Registered Nurse Type: Progress Notes Filed: 11/30/2017 3:29 PM Note Text: Patient feeling pressure, cervical exam 9.5 cm. NICU notified. Patient feels warm, but temp 36.9. [facility] PROGRESS HNO ID: [id number] thor: Marie Lema (Res) JabiereService: ObstetricsAuthor Type: [...] pt comfortable4. s/p FB5. [place] [address]. anomalies- prominent cisterna magna, bilateral periventrcularnodular heterotopia, [...] EF 55%.10. H/o maternal clubfoot-s/p repair as meqxxh93. H/o tobacco abuse12. Cat II- Isolate late decelerations. Moderate variability. Continuingto make cervical change. Not on Cat II protocol.SIGNATURE: Marie Hassan DO PATIENT NAME: Zuleika LambATE: November 30, 2017 : 1:35 PM PAGER/CONTACT #: [phone] [facility] PROGRESS HNO ID: [id number] thor: Yolanda (Res) SnyderService: ObstetricsAuthor Type: ResidentType: [...] Fluid Color: Clear (11/30/17 0853 : Darcie (Krari) Tigre RN)Additional Findings: NoneFETAL MONITORINGFHT: 145/mod/rare accel/+early decelToco: 1-3 minutesCategory: ILABSDiagnostic tests reviewed for today's visit: No new labsAssessment/Plan27 year old EGA:39w0d. Admitted for AOL PROM1. GBS-2. Pit per protocol3. Epi in- pt comfortable4. s/p FB5. [place] [address]. anomalies- prominent cisterna magna, bilateral periventrcularnodular heterotopia, [...] EF 55%.10. H/o maternal clubfoot-s/p repair as xnsemo10. H/o tobacco abuseSIGNATURE: Yolanda Barbosa DO PATIENT NAME: Zuleika LambATE: November 30, 2017 : 1:11 PM PAGER/CONTACT #: [phone] [facility] PROGRESS HNO ID: [id number] thor: Yolanda Shannon) GabrielaerService: ObstetricsAuthor Type: ResidentType: [...] Pit per protocol3. [place] [address]. [place] [address]. anomalies- prominent cisterna magna, bilateral periventrcularnodular heterotopia, [...] EF 55%.10. H/o maternal clubfoot-s/p repair as vgyatg43. H/o tobacco abuseSIGNATURE: Yolanda Barbosa DO PATIENT NAME: Zuleika BecerrilnDATE: November 30, 2017 : 11:05 AM PAGER/CONTACT #: [phone] [facility] PROGRESS HNO ID: [id number] Author: Darcie (Rn) KARRI Landeros Service: Nursing Author Type: Registered Nurse Type: Progress Notes Filed: 11/30/2017 10:35 AM Note Text: Unable to find labwork for chart. [facility] PROGRESS HNO ID: [id number] thor: Marie Lema (Res) JabiereService: ObstetricsAuthor Type: [...] Pit per protocol3[place] [address]. [place] [address]. anomalies- prominent cisterna magna, bilateral periventrcularnodular heterotopia, [...] EF 55%.10. H/o maternal clubfoot-s/p repair as cjygcq08. H/o tobacco abuse?SIGNATURE: Marie Hassan DO PATIENT NAME: Zuleika LambATE: November 30, 2017 : 10:31 AM PAGER/CONTACT #: [phone] Normal [facility] PROGRESS HNO ID: [id number] thor: Darcie Washington) ANEUDY Landeroservice: NursingAuthor Type: Registered NurseType: Progress NotesFiled: 11/30/2017 10:13 AMNote Text:Patient remains in shower. RN and boyfriend at side. EFM on telemetryand adjusted while patient in shower. Difficult to keep baby on. Normal [facility] PROGRESS HNO ID: [id number] thor: Yolanda (Res) SnyderService: ObstetricsAuthor Type: ResidentType: Progress NotesFiled: 11/30/2017 7:35 AMNote Text:In to place FB. Pt tolerated procedure well. Continues to leak clearfluid. Pt uncomfortable with contractions.Cat I FHT, reactive with accelsToco: 2-5 minsHeather Romina, PGY-1Obstetrics and GynecologyPager [phone]/7:34 AM Normal [facility] Type and Screenon 11-30-2017 ABO group Nom (Bld) A Normal [facility] Comment on above: Performed By: #### T &S #### [place] [address] Comment See Below [facility] Comment on above: Result Comment: Scre en &/or Xmatch expires in 3 days at 12 midnight. Redraw patient at that time. Performed By: #### T &S #### [place] [address] RH Type Positive Normal [facility] Comment on above: Performed By: #### T &S #### [place] [address] Progress Noteon 11-28-2017 Poultry Vaccinator Authentication Interface Message Text Routine VisitSubjective: Zuleika Villalta is being seen today for her obstetrical visit. She is at 90c7ulpnhafdin. Patient reports no complaints. Movement: normal. She [...] [facility] Supervision of other high risk , antepartum 10/08/2017 PLAN OF CAREMD/OB APPOINTMENTSHow often should patient be evaluated? q 2 weeks from 32 to 36 weeks thenweekly until deliveryWork restrictions: noneFETAL EVALUATIONAntenatal surveillance: weekly BPPs starting at 32 weeks.Ultrasound: Serial growth ultrasounds every 4 weeks.DELIVERY PLANHospital: [facility] HospitalInduction at 39 weeks; CYTOTEC IOL 12-02-17 at 5 pm at [facility]. Pre-Procedure formdone (CG)GBS culture: neg 11/07/17Contraception: Considering [...] IVC/SVC S/P [facility] POC reviewedShe would like her follow up and contraception with Dr. Ivan.The total patient time of the visit was 15 minutes, of which greater than 50% ofthe time was spent counseling and coordinating care. Normal [facility] Progress Noteon 11-22-2017 Poultry Vaccinator Authentication Interface Message Text [facility] plan of care faxed to [facility] in event pt would arrive for urgent management. Normal [facility] Progress Noteon 11-21-2017 Poultry Vaccinator Authentication Interface Message Text Routine VisitSubjective: Zuleika Villalta is being seen today for her obstetrical visit. She is at 76v6fjvavmnnbk. Patient reports that she went to [facility] last night due toconcerns for labor. She [...] Serial growth ultrasounds every 4 weeks.DELIVERY PLANHospital: [facility] HospitalInduction at 39 weeks; CYTOTEC IOL 12-02-17 at 5 pm at [facility]. Pre-Procedure formdone (CG)GBS culture: neg 11/07/17Contraception: Considering [...] scheduled for IOL on12/02/17.Oksana amado MD Normal [facility] Progress Noteon 11-12-2017 Poultry Vaccinator Authentication Interface Message Text Call from [facility] that pt presented there in labor. [facility] plan of care and ACOGs faxed by Toan Chen. Provided after hours MFM number provided. Normal [facility] Group B Strep Cultureon 10-16 Group B Strep Culture Group B Strep Cult ure: No Group B Streptococci isolated. Source: VAG Collected: 11/07/17 09:00 Site: Vaginal/Rectal Received : 11/07/17 22:01Group B Strep Culture FINAL 11/10/17 08:34 No Group B Streptococci isolated. Normal [facility] Comment on above: Performed By: #### G [facility] ####[address] [phone] Progress Noteon 11-07-2017 Poultry Vaccinator Authentication Interface Message Text Routine VisitSubjective: Zuleika Villalta is being seen today for her obstetrical visit. She is at 19l1jvmobyjbxn. Patient reports occasional nausea. No emesis. She [...] Serial growth ultrasounds every 4 weeks.DELIVERY PLANHospital: [facility] HospitalInduction at 39 weeksGBS culture: collected and [...] OB visit and BPP.Oksana Amado MD Normal [facility] Progress Noteon 10-24-2017 Poultry Vaccinator Authentication Interface Message Text Routine VisitSubjective: Zuleika [...] Serial growth ultrasounds every 4 weeks.DELIVERY PLANHospital: [facility] HospitalInduction at 39 weeksGBS culture:Contraception: Considering LARC [...] counseling and coordinating care.Marco Antonio Antonio, Normal [facility] Progress Noteon 10-15-2017 Poultry Vaccinator Authentication Interface Message Text Ped selection made. Updated prenatals Normal [facility] Progress Noteon 10-08-2017 Poultry Vaccinator Authentication Interface Message Text Thank you for [...] size. There was a patent foramen ovale, ylkgsxqet-yy-seez shunt.Tricuspid valve:Normal tricuspid valve. There was normal [...] fetuses and in fetuses with CHD and qipbrlimwyoyu68v08, the ratio being below 0.3 )Impression and recommendations.1) Abnormal 3-vessel view, ascending aorta was moderately dilated. 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 thymic thoracic ratio (TT-ratio)=0.1 ( TT-ratio 0.44 in normal fetuses and in fetuses with CHD and yfxiumplmjmgw02a18, the ratio being below 0.3 )5) Normal [...] treatments, follow up fetalechocardiograms and follow ups.10) [place] Echocardiogram prior to the discharge from the nursery or earlier ifcardiac condition/status changes in any way. [place] follow up and treatmentshould be determined on the basis of the findings on the initial echocardiogram.Counseling and/or coordination of care was greater than 35 minutes which is morethan 50% of the total time of 60 minutes spent on the encounter. Normal [facility] Poultry Vaccinator Authentication Interface Message Text Initial VisitSubjective: Zuleika [...] Serial growth ultrasounds every 4 weeks.DELIVERY PLANHospital: [facility] HospitalInduction at 39 weeksGBS culture:Contraception:TDAP recommended Constipation [...] weeks for OB visit and BPP in [place].Oksana Amado MD Normal [facility] Cytogenomic Microarray Nivia sis of Bloodon 09-10-2017 Cytogenomic Microarray Analysis of Blood SEE BELOW Normal [facility] Comment on above: Result Comment: SPEC IMEN: BLOODCLINICAL INFORMATION: Learning disability[F81.9]TEST: CYTOGENOMIC MICROARRAY ANALYSISRESULT SUMMARY:Normal femaleNOMENCLATURE:arr(1-22,X)s1FEZIJXJTHETGZF & COMMENTS:The cytogenomics microarray analysis indicated no [...] whole genome microarray analysis was performed the FDA-clearedBluefly(RLunagames platform, which contains approximately 2.7million markers, including 1,953,246 unique non-polymorphic copy numberprobes and 743,304 single nucleotide polymorphism (SNP) probes. Thegenome-wide functional resolution of this assay is approximately 25 kbfor deletions and 50 kb for duplications. This microarray andassociated software (Chromosome Analysis Suite Dx) were manufactured [employer] and used by the [facility]ogenetics and [facility]osticsLabor[facility] for the purpose ofidentifying DNA copy [...] further information regarding intendeduse and limitations, see [email or web address].Note: The Cytogenetics Laboratory has this patient's blood [...] for additional testing. 09/19/2017 BIGG GARCIA, PH.D., [facility] 09/19/2017 Performed By: #### M [facility] ####[facility] [place], [place] [phone] MRI (SINGLE)on 018 MRI (SINGLE) MRI (SINGLE)CL [...] Dr. AJ CAMILO at 09/10/2017 10:21 Normal [facility] Progress Noteon 09-10-2017 Poultry Vaccinator Authentication Interface Message Text The total patient time of the visit was 15 minutes, of which greater than 50% of the time was spent counseling and coordinating care. Normal [facility] Auto Diffon 09-03-2017 Basophils Auto #/vol (Bld) 0.1 E3/mcL Normal 0.0-0.2 [facility] Comment on above: Order Comment: Order Added by Discern Expert. Performed By: #### 2 [id number] ####[address] [place] [address] Basophils/100 WBC Auto (Bld) 0.5 % Normal 0.0-2.0 [facility] Comment on above: Order Comment: Order Added by Discern Expert. Performed By: #### 2 [id number] ####[address] [place] [address] Eos Absolute 0.0 E3/mcL Normal 0.0-0.7 [facility] Comment on above: Order Comment: Order Added by Discern Expert. Performed By: #### 2 [id number] ####[address] [place] [address] Eosinophils/100 leukocytes 0.4 % Normal 0.0-11.0 [facility] Comment on above: Order Comment: Order Added by Discern Expert. Performed By: #### 2 [id number] ####[address] [place] [address] Lymphocytes 1.3 E3/mcL Normal 1.2-3.4 [facility] Comment on above: Order Comment: Order Added by Discern Expert. Performed By: #### 2 [id number] ####[address] [place] [address] Lymphocytes/100 leukocytes 13.1 % Low 20.0-55.0 [facility] Comment on above: Order Comment: Order Added by Discern Expert. Performed By: #### 2 [id number] ####[address] [place] [address] Jessamine Absolute 0.4 E3/mcL Normal 0.0-0.7 [facility] Comment on above: Order Comment: Order Added by Discern Expert. Performed By: #### 2 [id number] ####[address] [place] [address] Monocytes/100 leukocytes 4.3 % Normal 0.0-10.0 [facility] Comment on above: Order Comment: Order Added by Discern Expert. Performed By: #### 2 [id number] ####[address] [place] [address] Neutro Absolute 8.4 E3/mcL High 1.4-6.5 [facility] Comment on above: Order Comment: Order Added by Discern Expert. Performed By: #### 2 355548 ####[address] [place] [address] Neutro Auto 81.7 % High 37.0-75.0 [facility] Comment on above: Order Comment: Order Added by Discern Expert. Performed By: #### 2 [id number] ####[address] [place] [address] CBC w/ Auto Diffon 8 Erythrocyte distribution width Auto Ratio (RBC) 13.1 % Normal 11.5-14.5 [facility] Comment on above: Performed By: #### 2 455145 ####[address] [place] [address] Erythrocytes (RBC) 3.90 E6/mcL Normal 3.90-5.40 [facility] Comment on above: Performed By: #### 2 004659 ####[address] [place] [id number] Hematocrit (HCT) 34.7 % Low 36.0-48.0 [facility] Comment on above: Performed By: #### 2 [id number] ####[address] [place] [address] Hemoglobin mass conc (Bld) 11.8 g/dL Low 12.0-16.0 [facility] Comment on above: Performed By: #### 2 [id number] ####[address] [place] [address] MCH 30.3 pg Normal 27.0-31.0 [facility] Comment on above: Performed By: #### 2 [id number] ####[address] [place] [id number] MCHC mass conc (RBC) 34.2 g/dL Normal 33.0-37.0 [facility] Comment on above: Performed By: #### 2 512244 ####[address] [place] [id number] MCV 88.8 fL Normal 78.0-100.0 [facility] Comment on above: Performed By: #### 2 [id number] ####[address] [place] [id number] Platelet mean volume (PMV) 7.3 fL Low 7.4-11.0 [facility] Comment on above: Performed By: #### 2 [id number] ####[address] [place] [address] Platelets 218 E3/mcL Normal 130-400 [facility] Comment on above: Performed By: #### 2 734996 ####[address] [place] [address] WBC (Leukocytes) 10.2 E3/mcL Normal 3.6-11.0 [facility] Comment on above: Performed By: #### 2 309937 ####[address] [place] [address] Gest Scr Glu 1 Hron 09-04-19 18 Glucose mass conc 113 mg/dL Normal 70-140 [facility] Comment on above: Performed By: #### 2 160430 ####[address] [place] [address] FISH Probeon 08-13-2017 Protein mass conc SEE BELOW Normal [facility] Comment on above: Result Comment: SPEC IMEN: BLOOD - [id number] INFORMATION:TEST: FISH Analysis of the DiGeorge/VCFS Region [...] Metaphase images: 2The Vysis LSI DARREN Spectrum [place] Probe contains the DARREN gene (3'non-coding region of TUPLE1, B96X901, and R49Q5116. The Vysis LSI ARSAspectrum Green Probe includes [...] performance characteristics determinedby the Cytogenetics Laboratory of [facility]. It hasnot been cleared or approved [...] J Med Barbara 66:250-256,1995. BIGG GARCIA, PH.D., [facility] 08/16/2017 Performed By: #### F [facility] ####[address] [phone] Progress Noteon 08-13-2017 Poultry Vaccinator Authentication Interface Message Text Met with patient [...] understanding of findingsWork History: unemployed. Information on [facility] services given.Consent to share information with [facility] team, OB and college teacher signed. Pt plans to deliver in [place] with [place] [facility]. Currently with Dr. Shekhar Dyson.Meat And Poultry Inspector is undecided. [facility] list provided and discussed importance ofselection [...] was spent counseling and coordinating care. Normal [facility] Poultry Vaccinator Authentication Interface Message Text Thank you for [...] size. There was a patent foramen ovale, hgytdsbsx-qy-mqod shunt.Tricuspid valve:Normal tricuspid valve. There was normal [...] 60 minutes spent on the encounter. Normal [facility] Progress Noteon 07-18-2017 Poultry Vaccinator Authentication Interface Message Text [facility] MATERNAL- MEDICINE CONSULTReferring/Requestin g Provider: Christian [...] no palpitations. She usually doesnot see a mamma logist, but did have a recent echo due [...] Stroke Maternal Grandmother Heart Disease Maternal Grandmother [place] Clotting Disorder Maternal Grandfather Miscarriages / Stillbirths [...] child 07/18/2017 Consider evaluation with social media editor to assess for any needs duringpregnancy or after. Will have genetic consult with [facility] evaluation. cardiac anomaly complicating , antepartum 07/18/2017 Dilated aortic root seen on ultrasound along with large umbilical cordvarix, dolichocephaly DW Dr. Zazueta, verbal order to refer to [facility] Will be scheduled with pediatric cardiology. Also, patient and family members have a history of learning disabilities,including an individual learning plan in school. She will talk to her familymembers and bring as much information as is available for her genetics consult.She has transportation to [place] and is willing [facility].The total patient time of the visit was 30 minutes, of which was greater than50% of the time was spent counseling and coordinating care. Normal [facility] IGP W/hpv Rfx [id number] 05-07 Diagnosis: See Ref Lab Report Normal [facility] Comment on above: Order Comment: Thin Prep. Performed By: #### 2 [id number] ####KADEN [address]airdNvtHkna[address] [place] [address] C Urineon 05-03-2017 C Urine Final Report: Normal skin alonso isolated Normal [facility] Comment on above: Performed By: #### 2 [id number] ####KADEN BairdDmbXtjz1450 [place] [address] RPRon 05-03-2017 RPR Ql Non-Reactive Normal Non-Reacti ve [facility] Comment on above: Performed By: #### 2 [id number] ####KADEN BairdSdaBxrw7208 [place] [address] Hep Bs Agon 05-02-2017 BSA (Body Surface Area) Negative Normal Negative [facility] Comment on above: Result Comment: Perf ormed At: CB [facility] [id number] [place], [place] [id number] Vincent PhD Ph:[phone] Performed By: #### 2 564525 ####KADEN BairdJqjZons2873 [place] [address] ABO/Rh Echoon 05-01-2017 ABO/Rh E Interp... Positive Normal [facility] Comment on above: Performed By: #### 2 433884 ####KADEN BairdBwtQwqn9291 [place] [address] Antibody Screen Cap...on Screen Interp... Negative Normal [facility] Comment on above: Performed By: #### 2 283302 ####KADEN HwlPqwe5802 [place] [address] Auto Diffon 05-01-2017 Basophils Auto #/vol (Bld) 0.0 E3/mcL Normal 0.0-0.2 [facility] Comment on above: Order Comment: Order Added by Discern Expert. Performed By: #### 2 921666 ####KADEN Urinalysis Manual Y[address] [place] [address] 37489 Basophils/100 WBC Auto (Bld) 0.4 % Normal 0.0-2.0 [facility] Comment on above: Order Comment: Order Added by Discern Expert. Performed By: #### 2 418573 ####KADEN Urinalysis Manual Ezaiireupa[address] [place] [address] 14179 Eos Absolute 0.1 E3/mcL Normal 0.0-0.7 [facility] Comment on above: Order Comment: Order Added by Discern Expert. Performed By: #### 2 519486 ####KADEN Urinalysis Manual Ylhwdunong[address] [place] [address] 04658 Eosinophils/100 leukocytes 0.7 % Normal 0.0-11.0 [facility] Comment on above: Order Comment: Order Added by Discern Expert. Performed By: #### 2 825469 ####KADEN Urinalysis Manual Gckygiokxb[address] [place] [address] 49408 Lymphocytes 1.8 E3/mcL Normal 1.2-3.4 [facility] Comment on above: Order Comment: Order Added by Discern Expert. Performed By: #### 2 845586 ####KADEN Urinalysis Manual Cbvnpikzra[address] [place] [address] 38557 Lymphocytes/100 leukocytes 17.1 % Low 20.0-55.0 [facility] Comment on above: Order Comment: Order Added by Discern Expert. Performed By: #### 2 770784 ####KADEN Urinalysis Manual Lxwwbocvjm[address] [place] [address] 90141 Jessamine Absolute 0.5 E3/mcL Normal 0.0-0.7 [facility] Comment on above: Order Comment: Order Added by Discern Expert. Performed By: #### 2 392866 ####KADEN Urinalysis Manual Nnqltvwkio9[address] [place] [address] Monocytes/100 leukocytes 5.0 % Normal 0.0-10.0 [facility] Comment on above: Order Comment: Order Added by Discern Expert. Performed By: #### 2 486129 ####KADEN Urinalysis Manual Jzkowpijhx9[address] [place] [address] Neutro Absolute 8.0 E3/mcL High 1.4-6.5 [facility] Comment on above: Order Comment: Order Added by Discern Expert. Performed By: #### 2 549455 ####KADEN Urinalysis Manual Bpexbicbby[address] [place] [address] Neutro Auto 76.8 % High 37.0-75.0 [facility] Comment on above: Order Comment: Order Added by Discern Expert. Performed By: #### 2 379482 ####KADEN Urinalysis Manual Whqhmmatuq423[address] [place] [address] CBC w/ Auto Diffon 7 Erythrocyte distribution width Auto Ratio (RBC) 15.2 % High 11.5-14.5 [facility] Comment on above: Performed By: #### 2 443906 ####KADEN Urinalysis Manual Miicwhceuk[address] [place] [address] Erythrocytes (RBC) 4.90 E6/mcL Normal 3.90-5.40 [facility] Comment on above: Performed By: #### 2 868147 ####KADEN Urinalysis Manual Rbaxrixlog672[address] [place] [address] Hematocrit (HCT) 41.1 % Normal 36.0-48.0 [facility] Comment on above: Performed By: #### 2 919195 ####KADEN Urinalysis Manual Jvmwhhrxvf9708[address] [place] [address] Hemoglobin mass conc (Bld) 13.5 g/dL Normal 12.0-16.0 [facility] Comment on above: Performed By: #### 2 408991 ####KADEN Urinalysis Manual Cyjipydmro5339[address] [place] [address] MCH 27.5 pg Normal 27.0-31.0 [facility] Comment on above: Performed By: #### 2 383160 ####KADEN Urinalysis Manual Cfjdvxgtwh99034[address] [place] [address] MCHC mass conc (RBC) 32.8 g/dL Low 33.0-37.0 [facility] Comment on above: Performed By: #### 2 107602 ####KADEN Urinalysis Manual Vvfqbzazvu0795[address] [place] [address] MCV 83.9 fL Normal 78.0-100.0 [facility] Comment on above: Performed By: #### 2 856818 ####KADEN Urinalysis Manual Poltjlered[address] [place] [address] Platelet mean volume (PMV) 8.0 fL Normal 7.4-11.0 [facility] Comment on above: Performed By: #### 2 483131 ####KADEN Urinalysis Manual Ervkgxoxif165449 [place] [address] Platelets 246 E3/mcL Normal 130-400 [facility] Comment on above: Performed By: #### 2 120217 ####KADEN Urinalysis Manual Fttpnjjvsl20[address] [place] [address] WBC (Leukocytes) 10.4 E3/mcL Normal 3.6-11.0 [facility] Comment on above: Performed By: #### 2 337435 ####KADEN Urinalysis Manual Hllbltevsr953249 [place] [address] Chlamydia GC by PCRon 2016 Chlamydia by PCR. Not Detected Normal Not Detected [facility] Comment on above: Result Comment: Xper t CT/NG Assay performance has not been evaluated in patients less than 14 years of age. Performed By: #### 2 624246 ####KADEN MruRuiq9499 [place] [id number] Gonorrhoeae by PCR Not Detected Normal Not Detected [facility] Comment on above: Result Comment: Xper t CT/NG Assay performance has not been evaluated in patients less than 14 years of age. Performed By: #### 2 930890 ####KADEN QnrKmib9354 [place] [id number] HIV-1/2 Ag/Abon 05-01-2017 HIV-1/2 Ag/Ab Non-Reactive Normal Non-Reacti ve [facility] Comment on above: Performed By: #### 2 724473 ####KADEN Urinalysis Manual [place] [id number] Rubella IgG Lvlon 05-01-2017 Rubella IgG Lvl 50.8 (POS) Normal [facility] Comment on above: Result Comment: <10I U/ml NON REACTIVE: NOT [id number] IU/ml RUBELLA SPECIFIC AB PRESENT, EVALUATEFURTHER TO DETERMINE IMMUNE STATUS >15 IU/ml REACTIVE, IMMUNE Performed By: #### 2 620004 ####KADEN CmwHcny4930 [place] [address] Auto Diffon 04-22-2017 Basophils Auto #/vol (Bld) 0.1 E3/mcL Normal 0.0-0.2 [facility] Comment on above: Order Comment: Order Added by Discern Expert. Performed By: #### 2 978308 ####KADEN [place] [address] Basophils/100 WBC Auto (Bld) 0.6 % Normal 0.0-2.0 [facility] Comment on above: Order Comment: Order Added by Discern Expert. Performed By: #### 2 925948 ####KADEN Urinalysis Manual [address] [address] Eos Absolute 0.0 E3/mcL Normal 0.0-0.7 [facility] Comment on above: Order Comment: Order Added by Discern Expert. Performed By: #### 2 154660 ####KADEN Urinalysis Manual Mgormxukcg996[address] [place] [address] 73639 Eosinophils/100 leukocytes 0.2 % Normal 0.0-11.0 [facility] Comment on above: Order Comment: Order Added by Discern Expert. Performed By: #### 2 036597 ####KADEN Urinalysis Manual [address] [place], [place] [address] Lymphocytes 1.5 E3/mcL Normal 1.2-3.4 [facility] Comment on above: Order Comment: Order Added by Discern Expert. Performed By: #### 2 472323 ####KADEN Urinalysis Manual Reqqwqgoxg23[address] [place] [address] 75483 Lymphocytes/100 leukocytes 10.8 % Low 20.0-55.0 [facility] Comment on above: Order Comment: Order Added by Discern Expert. Performed By: #### 2 407529 ####KADEN Urinalysis Manual Vqkhsidgkr8835[address] [place] [address] Jessamine Absolute 0.6 E3/mcL Normal 0.0-0.7 [facility] Comment on above: Order Comment: Order Added by Discern Expert. Performed By: #### 2 143669 ####KADEN Urinalysis Manual Mjbtjnqcyu1078[address] [place] [address] Monocytes/100 leukocytes 4.4 % Normal 0.0-10.0 [facility] Comment on above: Order Comment: Order Added by Discern Expert. Performed By: #### 2 125768 ####KADEN Urinalysis Manual Kbjlgkhbhv529[address] [place] [address] Neutro Absolute 11.3 E3/mcL High 1.4-6.5 [facility] Comment on above: Order Comment: Order Added by Discern Expert. Performed By: #### 2 705569 ####KADEN Urinalysis Manual Ylghscgnsv6057[address] [place] [address] Neutro Auto 84.0 % High 37.0-75.0 [facility] Comment on above: Order Comment: Order Added by Discern Expert. Performed By: #### 2 788549 ####KADEN Urinalysis Manual Wysrjjyjig637[address] [place] [address] BMPon 04-22-2017 BUN/Creatinine Ratio Unable to calc Normal 5.4-30.0 [facility] Comment on above: Performed By: #### 2 508263 ####KADEN Urinalysis Manual Gxizmomedo462849 [place] [address] Creatinine mg/dL Low 0.6-1.3 [facility] Comment on above: Performed By: #### 2 932417 ####KADEN Urinalysis Manual Afgkgstikd872449 [place] [address] Urea nitrogen 7 mg/dL Normal 7-18 [facility] Comment on above: Performed By: #### 2 284646 ####KADEN Urinalysis Manual Gtmofzoyqm7896 [place] [address] Calcium 9.6 mg/dL Normal 8.4-10.2 [facility] Comment on above: Performed By: #### 2 590114 ####KADEN Urinalysis Manual Tqegexwqja2742 [place] [address] Chloride 103 mmol/L Normal 98-107 [facility] Comment on above: Performed By: #### 2 581018 ####KADEN Urinalysis Manual Yqqmxfvexh5731 [place] [address] CO2 21.7 mmol/L Low 24.0-30.0 [facility] Comment on above: Performed By: #### 2 012334 ####KADEN Urinalysis Manual Qcennnyvks470[address] [place] [address] Glucose mass conc 89 mg/dL Normal 70-99 [facility] Comment on above: Performed By: #### 2 478222 ####KADEN Urinalysis Manual Yqrbyoeifu808[address] [place] [address] Potassium molar conc 3.6 mmol/L Normal 3.5-5.1 [facility] Comment on above: Performed By: #### 2 956243 ####KADEN Urinalysis Manual Linuwrhviv568[address] [place] [address] Sodium 136 mmol/L Normal 136-145 [facility] Comment on above: Performed By: #### 2 150438 ####KADEN Urinalysis Manual Ngnmpeadox8[address] [place], [place] [address] CBC w/ Auto Diffon 7 Erythrocyte distribution width Auto Ratio (RBC) 14.8 % High 11.5-14.5 [facility] Comment on above: Performed By: #### 2 049379 ####KADEN Urinalysis Manual Klqmifhzen7[address] [place], [place] [address] Erythrocytes (RBC) 4.96 E6/mcL Normal 3.90-5.40 [facility] Comment on above: Performed By: #### 2 447110 ####KADEN Urinalysis Manual Uiyvsfjrcp888[address] [place] [address] Hematocrit (HCT) 40.9 % Normal 36.0-48.0 [facility] Comment on above: Performed By: #### 2 514960 ####KADEN Urinalysis Manual Aolmqyrecu5095[address] [place] [address] Hemoglobin mass conc (Bld) 13.5 g/dL Normal 12.0-16.0 [facility] Comment on above: Performed By: #### 2 221555 ####KADEN Urinalysis Manual Avuulgqbbo4[address] [place] [address] MCH 27.2 pg Normal 27.0-31.0 [facility] Comment on above: Performed By: #### 2 904839 ####KADEN Urinalysis Manual Plkqtopwma18[address] [place] [address] MCHC mass conc (RBC) 33.0 g/dL Normal 33.0-37.0 [facility] Comment on above: Performed By: #### 2 808349 ####KADEN Urinalysis Manual Cwvfquvyin8588[address] [place] [address] MCV 82.4 fL Normal 78.0-100.0 [facility] Comment on above: Performed By: #### 2 536899 ####KADEN Urinalysis Manual Dsfbzuakce529[address] [place] [address] Platelet mean volume (PMV) 8.0 fL Normal 7.4-11.0 [facility] Comment on above: Performed By: #### 2 112610 ####KADEN Urinalysis Manual Yiwwczhryo180[address] [place] [address] Platelets 237 E3/mcL Normal 130-400 [facility] Comment on above: Performed By: #### 2 583796 ####KADEN Urinalysis Manual Orgehlvvfs312[address] [place] [address] WBC (Leukocytes) 13.5 E3/mcL High 3.6-11.0 [facility] Comment on above: Performed By: #### 2 219959 ####KADEN Urinalysis Manual Gejvgahgrp6[address] [place] [address] UA Completeon 04-22-2017 UA Blood Negative Normal Negative [facility] Comment on above: Performed By: #### 2 220750 ####KADEN Urinalysis Manual Vhulkvuadl3112 [place] [address] UA Ascorbic Acid 40 mg/dL High <=19 [facility] Comment on above: Performed By: #### 2 713996 ####KADEN Urinalysis Manual Fyrsoduvlm2622 [place] [address] UA Bacteria 3+ /HPF Abnormal None [facility] Comment on above: Performed By: #### 2 954238 ####KADEN Urinalysis Manual Aywlkgreyv66[address] [place] [address] UA Clarity SltCloudy Abnormal Clear [facility] Comment on above: Performed By: #### 2 534411 ####KADEN Urinalysis Manual Imgkumtnnh706[address] [place] [address] UA Leuk Est Negative Normal Negative [facility] Comment on above: Performed By: #### 2 968382 ####KADEN Urinalysis Manual Iqjsgtjlav205[address] [place] [address] UA Mucous Few Abnormal Trace [facility] Comment on above: Performed By: #### 2 308187 ####KADEN Urinalysis Manual Mpycedapdd[address] [place] [address] 91191 UA Nitrite Negative Normal Negative [facility] Comment on above: Performed By: #### 2 856379 ####KADEN Urinalysis Manual Diffbflnye[address] [place] [address] 28539 UA pH 8.0 Normal 4.6-8.0 [facility] Comment on above: Performed By: #### 2 129684 ####KADEN Urinalysis Manual Qdcvgxbicd495[address] [place] [address] UA Protein Negative Normal Negative [facility] Comment on above: Performed By: #### 2 259815 ####KADEN Urinalysis Manual Rhqpsfdqcz[address] [place] [address] 46325 UA Spec Grav 1.012 Normal 1.003-1.03 0 [facility] Comment on above: Performed By: #### 2 970982 ####KADEN Urinalysis Manual Wzevmmutvi0[address] [place] [address] UA Squam Epithelial 0-5 Normal 0-5 [facility] Comment on above: Performed By: #### 2 271770 ####KADEN Urinalysis Manual Wrfoppxxad7805 [place] [address] UA Urobilinogen Negative Normal [facility] Comment on above: Performed By: #### 2 709374 ####KADEN Urinalysis Manual Nvrbkjtjgh0613 [place] [address] UA WBC 0-5 Normal 0-5 [facility] Comment on above: Performed By: #### 2 077178 ####KADEN Urinalysis Manual Wyimwxhcfz5225 [place] [address] Urine, color Yellow Normal Yellow [facility] Comment on above: Performed By: #### 2 992907 ####KADEN Urinalysis Manual Aifffmptbq[address] [place] [address] 98387 Urine, glucose Negative Normal Negative [facility] Comment on above: Performed By: #### 2 941122 ####KADEN Urinalysis Manual Dadasezccp190649 [place] [address] Urine, ketones presence 1+ Abnormal Negative [facility] Comment on above: Performed By: #### 2 806579 ####KADEN Urinalysis Manual Rchdhwvvmd[address] [place] [address] 94762 Urine, urobilinogen Negative Normal Negative [facility] Comment on above: Performed By: #### 2 068031 ####KADEN Urinalysis Manual Cwagknyhnq[address] [place] [address] 01123 eGFRon 04-22-2017 eGFR AA >60 Normal [facility] Comment on above: Order Comment: Order added by Discern Expert. Performed By: #### 2 912924 ####KADEN Urinalysis Manual Ruqgkuicmp9321 [place] [address] eGFR (non-black) mL/min/{1.73_m2} Normal [facility] Comment on above: Order Comment: Order added by Discern Expert. Performed By: #### 2 768067 ####KADEN Urinalysis Manual Jsbwlkibri8358 [place] [address] C Urineon 04-20-2017 C Urine Final Report: Normal skin alonso isolated Normal [facility] Comment on above: Performed By: #### 2 972579 ####KDAEN Urinalysis Manual Lsniuihmkb9016 [place] [address] BMPon 04-18-2017 BUN/Creatinine Ratio 15.0 ratio Normal 5.4-30.0 [facility] Comment on above: Performed By: #### 2 078052 ####KADEN BairdRtqHpdm6944 [place] [address] Creatinine 0.6 mg/dL Normal 0.6-1.3 [facility] Comment on above: Performed By: #### 2 151380 ####KADEN BairdLssMyrl1382 [place] [address] Urea nitrogen 9 mg/dL Normal 7-18 [facility] Comment on above: Performed By: #### 2 683973 ####KADEN BairdQsgZdyu0379 [place] [address] Calcium 9.6 mg/dL Normal 8.4-10.2 [facility] Comment on above: Performed By: #### 2 112173 ####KADEN BairdAtqSctg6967 [place] [address] Chloride 102 mmol/L Normal 98-107 [facility] Comment on above: Performed By: #### 2 133007 ####KADEN BairdPxbQhny6441 [place] [address] CO2 23.3 mmol/L Low 24.0-30.0 [facility] Comment on above: Performed By: #### 2 689240 ####KADEN BairdEmoBlmm6218 [place] [address] Glucose mass conc 93 mg/dL Normal 70-99 [facility] Comment on above: Performed By: #### 2 157807 ####KADEN BairdNirCjps0168 [place] [address] Potassium molar conc 3.5 mmol/L Normal 3.5-5.1 [facility] Comment on above: Performed By: #### 2 680845 ####KADEN BairdXlmNsdo3435 [place] [address] Sodium 136 mmol/L Normal 136-145 [facility] Comment on above: Performed By: #### 2 494500 ####KADEN NpdBwko6723 [place] [address] UA Completeon 04-18-2017 UA Blood Negative Normal Negative [facility] Comment on above: Performed By: #### 2 619884 ####KADEN Urinalysis Manual Hcakoqdrcj[address] [place] [address] UA Amorph Chastity 2+ /HPF Abnormal None [facility] Comment on above: Performed By: #### 2 426838 ####KADEN Urinalysis Manual Rsqwkfreuu432649 [place] [address] UA Ascorbic Acid 40 mg/dL High <=19 [facility] Comment on above: Performed By: #### 2 564782 ####KADEN Urinalysis Manual Gykzrzybtg6[address] [place] [address] UA Clarity Cloudy Abnormal Clear [facility] Comment on above: Performed By: #### 2 261615 ####KADEN Urinalysis Manual Ipyxucaqxh317[address] [place] [address] UA Leuk Est Negative Normal Negative [facility] Comment on above: Performed By: #### 2 221031 ####KADEN Urinalysis Manual Lhuillxbaf01[address] [place] [address] UA Mucous Trace Abnormal Trace [facility] Comment on above: Performed By: #### 2 870713 ####KADEN Urinalysis Manual Hknpalalnp2216[address] [place] [address] UA Nitrite Negative Normal Negative [facility] Comment on above: Performed By: #### 2 435386 ####KADEN Urinalysis Manual Kxcksgdkmv4535[address] [place] [address] UA pH 7.0 Normal 4.6-8.0 [facility] Comment on above: Performed By: #### 2 886396 ####KADEN Urinalysis Manual Vgblmluivt61[address] [place] [address] UA Protein Negative Normal Negative [facility] Comment on above: Performed By: #### 2 485979 ####KADEN Urinalysis Manual Nkeharakbr36[address] [place] [address] UA Spec Grav 1.018 Normal 1.003-1.03 0 [facility] Comment on above: Performed By: #### 2 257120 ####KADEN Urinalysis Manual Wwlwmsxkrl9279 [place] [address] UA Squam Epithelial 0-5 Normal 0-5 [facility] Comment on above: Performed By: #### 2 368010 ####KADEN Urinalysis Manual Jfyyrnmvri85[address] [place] [address] UA Urobilinogen Negative Normal [facility] Comment on above: Performed By: #### 2 393763 ####KADEN Urinalysis Manual Cswvcpoagr[address] [place] [address] Urine, color Yellow Normal Yellow [facility] Comment on above: Performed By: #### 2 412441 ####KADEN Urinalysis Manual Ahhpjzboyw507[address] [place] [address] Urine, glucose Negative Normal Negative [facility] Comment on above: Performed By: #### 2 973225 ####KADEN Urinalysis Manual Hkdmosiict828[address] [place] [address] Urine, ketones presence 2+ Abnormal Negative [facility] Comment on above: Performed By: #### 2 438100 ####KADEN Urinalysis Manual Dthosnanuk904149 [place] [address] Urine, urobilinogen Negative Normal Negative [facility] Comment on above: Performed By: #### 2 355538 ####KADEN Urinalysis Manual Zkycytemrz44[address] [place] [address] eGFRon 04-18-2017 eGFR (non-black) mL/min/{1.73_m2} Normal [facility] Comment on above: Order Comment: Order added by Discern Expert. Performed By: #### 1 9293975 ####KADEN FomQxaf3708 [place] [address] eGFR AA >60 Normal [facility] Comment on above: Order Comment: Order added by Discern Expert. Performed By: #### 1 7859852 ####KADEN RknUlxx8072 [place] [address] Auto Diffon 04-11-2017 Basophils Auto #/vol (Bld) 0.1 E3/mcL Normal 0.0-0.2 [facility] Comment on above: Order Comment: Order Added by Discern Expert. Performed By: #### 2 911081 ####KADEN BairdNwtPhzf4922 [place] [address] Basophils/100 WBC Auto (Bld) 0.7 % Normal 0.0-2.0 [facility] Comment on above: Order Comment: Order Added by Discern Expert. Performed By: #### 2 033600 ####KADEN BairdVviSqyz8197 [place] [address] Eos Absolute 0.0 E3/mcL Normal 0.0-0.7 [facility] Comment on above: Order Comment: Order Added by Discern Expert. Performed By: #### 2 112611 ####KADEN BairdMlbWffb4842 [place] [address] Eosinophils/100 leukocytes 0.1 % Normal 0.0-11.0 [facility] Comment on above: Order Comment: Order Added by Discern Expert. Performed By: #### 2 177941 ####KADEN BairdGcjWspb2352 [place] [address] Lymphocytes 1.5 E3/mcL Normal 1.2-3.4 [facility] Comment on above: Order Comment: Order Added by Discern Expert. Performed By: #### 2 391679 ####KADEN BairdPxtRiaa6639 [place] [address] Lymphocytes/100 leukocytes 17.2 % Low 20.0-55.0 [facility] Comment on above: Order Comment: Order Added by Discern Expert. Performed By: #### 2 635087 ####KADEN BairdXroEqwm4912 [place] [address] Jessamine Absolute 0.6 E3/mcL Normal 0.0-0.7 [facility] Comment on above: Order Comment: Order Added by Discern Expert. Performed By: #### 2 526221 ####KADEN MzaYkon5072 [place] [address] Monocytes/100 leukocytes 6.6 % Normal 0.0-10.0 [facility] Comment on above: Order Comment: Order Added by Discern Expert. Performed By: #### 2 279461 ####KADEN JhdDbep5346 [place] [address] Neutro Absolute 6.7 E3/mcL High 1.4-6.5 [facility] Comment on above: Order Comment: Order Added by Discern Expert. Performed By: #### 2 638933 ####KADEN Luceroo1025 [place] [address] Neutro Auto 75.4 % High 37.0-75.0 [facility] Comment on above: Order Comment: Order Added by Discern Expert. Performed By: #### 2 322304 ####KADEN Luceroo1025 [place] [address] BMPon 04-11-2017 BUN/Creatinine Ratio 12.9 ratio Normal 5.4-30.0 [facility] Comment on above: Performed By: #### 2 549839 ####KADEN Bai1025 [place] [address] Creatinine 0.7 mg/dL Normal 0.6-1.3 [facility] Comment on above: Performed By: #### 2 745039 ####KADEN EdzLdzc9020 [place] [address] Urea nitrogen 9 mg/dL Normal 7-18 [facility] Comment on above: Performed By: #### 2 481798 ####KADEN WwvZmxe5052 [place] [address] Calcium 9.5 mg/dL Normal 8.4-10.2 [facility] Comment on above: Performed By: #### 2 [id number] ####KADEN ZxgXgnf8406 [place] [address] Chloride 105 mmol/L Normal 98-107 [facility] Comment on above: Performed By: #### 2 [id number] ####KADEN BsyWqwt4773 [place] [address] CO2 22.5 mmol/L Low 24.0-30.0 [facility] Comment on above: Performed By: #### 2 [id number] ####KADEN ZslEyrd6488 [place] [address] Glucose mass conc 92 mg/dL Normal 70-99 [facility] Comment on above: Performed By: #### 2 [id number] ####KADENMorelia BaiQzoPhhq4337 [place] [address] Potassium molar conc 3.6 mmol/L Normal 3.5-5.1 [facility] Comment on above: Performed By: #### 2 [id number] ####KADEN EwwCyln9105 [place] [address] Sodium 137 mmol/L Normal 136-145 [facility] Comment on above: Performed By: #### 2 [id number] ####KADEN GvnDbkz1528 [place] [address] BhCG Quanton 04-11-2017 Beta hCG Qnt 8564.0 mIU/m Normal [facility] Comment on above: Result Comment: FEMA LE (NON-) & MALE <3 BORDERLINE 3 - 5 SUGGEST REPEAT TESTING FEMALE () 1 D - 1 WK 5 - 50 1 - 2 WK 50 - 500 2 - 3 WK 100 - 5000 3 - 4 WK 500 - 71526 4 - 5 WK 1000 - 16580 5 - 6 WK 42725 - 629727 6 - 8 WK 21166 - 083150 2 - 3 [place] [address] - 271270 Performed By: #### 2 [id number] ####KADEN FcwWcgd0777 [place] [address] CBC w/ Auto Diffon 7 Erythrocyte distribution width Auto Ratio (RBC) 13.9 % Normal 11.5-14.5 [facility] Comment on above: Performed By: #### 2 [id number] ####KADENMorelia LuceroKpjNayx3574 [place] [address] Erythrocytes (RBC) 4.63 E6/mcL Normal 3.90-5.40 [facility] Comment on above: Performed By: #### 2 [id number] ####KADENMorelia LuceroWtuGdjs7325 [place] [address] Hematocrit (HCT) 38.2 % Normal 36.0-48.0 [facility] Comment on above: Performed By: #### 2 [id number] ####KADENMorelia LuceroMukUfip4783 [place] [address] Hemoglobin mass conc (Bld) 12.6 g/dL Normal 12.0-16.0 [facility] Comment on above: Performed By: #### 2 [id number] ####KADENMorelia LuceroAbgWboy1929 [place] [address] MCH 27.2 pg Normal 27.0-31.0 [facility] Comment on above: Performed By: #### 2 [id number] ####KADEN Luceroo1025 [place] [address] MCHC mass conc (RBC) 33.0 g/dL Normal 33.0-37.0 [facility] Comment on above: Performed By: #### 2 [id number] ####KADEN Luceroo1025 [place] [address] MCV 82.6 fL Normal 78.0-100.0 [facility] Comment on above: Performed By: #### 2 [id number] ####KADEN Luceroo1025 [place] [address] Platelet mean volume (PMV) 8.0 fL Normal 7.4-11.0 [facility] Comment on above: Performed By: #### 2 [id number] ####KADEN Luceroo1025 [place] [address] Platelets 233 E3/mcL Normal 130-400 [facility] Comment on above: Performed By: #### 2 [id number] ####KADEN BairdItjSpoz7846 [place] [address] WBC (Leukocytes) 9.0 E3/mcL Normal 3.6-11.0 [facility] Comment on above: Performed By: #### 2 [id number] ####KADEN Luceroo1025 [place] [id number] UA Completeon 04-11-2017 UA Blood Negative Normal Negative [facility] Comment on above: Result Comment: High concentration of Ascorbic Acid present in urine. This may cause False Negative Occ Blood. Review microscopic results and patient's clinical symptoms. Performed By: #### 8 [id number] ####KADEN Urinalysis Automated Anxinlqksj2199 [place] [address] UA Amorph Chastity 1+ /HPF Abnormal None [facility] Comment on above: Performed By: #### 8 [id number] ####KADEN Urinalysis Automated Civhmhggku4760 [place] [address] UA Ascorbic Acid 40 mg/dL High <=19 [facility] Comment on above: Performed By: #### 8 [id number] ####KADEN Urinalysis Automated Vznawfxsyr5784 [place] [address] UA Bacteria Trace Abnormal None [facility] Comment on above: Performed By: #### 8 [id number] ####KADEN Urinalysis Automated Guwkuochgp9867 [place] [address] UA Clarity Cloudy Abnormal Clear [facility] Comment on above: Performed By: #### 8 [id number] ####KADEN Urinalysis Automated Bvsdeykitg[address] [place] [address] UA Leuk Est Negative Normal Negative [facility] Comment on above: Performed By: #### 8 [id number] ####KADEN Urinalysis Automated [address]ajfzvbm[address] [place] [address] UA Mucous Few Abnormal Trace [facility] Comment on above: Performed By: #### 8 [id number] ####KADEN Urinalysis Automated Wwsfpjfowo[address] [place] [address] UA Nitrite Negative Normal Negative [facility] Comment on above: Performed By: #### 8 [id number] ####KADEN Urinalysis Automated Yhpjmfhtrt[address] [place] [address] UA pH 7.0 Normal 4.6-8.0 [facility] Comment on above: Performed By: #### 8 [id number] ####KADEN Urinalysis Automated Awsxqgmqin[address] [place] [address] UA Protein Negative Normal Negative [facility] Comment on above: Performed By: #### 8 [id number] ####KADEN Urinalysis Automated Sluemaltuy[address] [place] [address] UA Spec Grav 1.025 Normal 1.003-1.03 0 [facility] Comment on above: Performed By: #### 8 [id number] ####KADEN Urinalysis Automated Zj[address]hasnwr[address] [place] [address] UA Squam Epithelial 5-10 Abnormal 0-5 [facility] Comment on above: Performed By: #### 8 [id number] ####KADEN Urinalysis Automated Jwydulvtyy0085[address] [place] [address] UA Urobilinogen 2.0 mg/dL Abnormal [facility] Comment on above: Performed By: #### 8 [id number] ####KADEN Urinalysis Automated Kvlywbhnmj8012 [place] [address] Urine, color Yellow Normal Yellow [facility] Comment on above: Performed By: #### 8 [id number] ####KADEN Urinalysis Automated Juvgzznrxe9150 [place] [address] Urine, erythrocytes 0-3 Normal 0-3 [facility] Comment on above: Performed By: #### 8 [id number] ####KADEN Urinalysis Automated Qcdypxpfie2319 [place] [address] Urine, glucose Negative Normal Negative [facility] Comment on above: Performed By: #### 8 [id number] ####KADEN Urinalysis Automated Rnkstwdmwf[address] [place] [address] Urine, ketones presence 2+ Abnormal Negative [facility] Comment on above: Performed By: #### 8 [id number] ####KADEN Urinalysis Automated Mjajzcvqnl[address] [place] [address] Urine, urobilinogen Negative Normal Negative [facility] Comment on above: Performed By: #### 8 [id number] ####KADEN Urinalysis Automated Vxfdpelwlu[address] [place] [address] eGFRon 04-11-2017 eGFR (non-black) mL/min/{1.73_m2} Normal [facility] Comment on above: Order Comment: Order added by Discern Expert. Performed By: #### 1 [id number] ####KADEN GqmPtuo0915 [place] [address] eGFR AA >60 Normal [facility] Comment on above: Order Comment: Order added by Discern Expert. Performed By: #### 1 [id number] ####KADEN IbuIzeu6255 [place] [address] U BhCG Qlton 03-20-2017 HCG.beta subunit Qn Negative Normal Neg [facility] Comment on above: Performed By: #### 2 [id number] ####KADEN Urinalysis Manual Ebfyszcyvd7[address] [place] [id number] UA Completeon 03-20-2017 UA Blood Negative Normal Negative [facility] Comment on above: Performed By: #### 8 [id number] ####KADEN Urinalysis Automated Rceqldshaf7146 [place] [address] UA Amorph Chastity 1+ /HPF Abnormal None [facility] Comment on above: Performed By: #### 8 [id number] ####KADEN Urinalysis Automated Jhbypegyyg1779 [place] [address] UA Bacteria 2+ /HPF Abnormal None [facility] Comment on above: Performed By: #### 8 [id number] ####KADEN Urinalysis Automated [address] [place] [address] UA Clarity Cloudy Abnormal Clear [facility] Comment on above: Performed By: #### 8 [id number] ####KADEN Urinalysis Automated Itivfcnpoc[address] [place] [address] UA Leuk Est 1+ Abnormal Negative [facility] Comment on above: Performed By: #### 8 [id number] ####KADEN Urinalysis Automated Tdqlukmcxs[address] [place] [address] UA Mucous Occasional Abnormal Trace [facility] Comment on above: Performed By: #### 8 [id number] ####KADEN Urinalysis Automated Kbxdcmlwap[address] [place] [address] UA Nitrite Negative Normal Negative [facility] Comment on above: Performed By: #### 8 [id number] ####KADEN Urinalysis Automated Ylwmtfkggg[address] [place] [address] UA pH 6.0 Normal 4.6-8.0 [facility] Comment on above: Performed By: #### 8 [id number] ####KADEN Urinalysis Automated Vfdjarkijr[address] [place] [address] UA Protein 1+ Abnormal Negative [facility] Comment on above: Performed By: #### 8 [id number] ####KADEN Urinalysis Automated Zjddaylfrq[address] [place] [address] UA Spec Grav 1.019 Normal 1.003-1.03 0 [facility] Comment on above: Performed By: #### 8 [id number] ####KADEN Urinalysis Automated [address]tsevsgzbe[address] [place] [address] UA Squam Epithelial 5-10 Abnormal 0-5 [facility] Comment on above: Performed By: #### 8 [id number] ####KADEN Urinalysis Automated Mqwpmbpsse5008 [place] [address] UA Urobilinogen Negative Normal [facility] Comment on above: Performed By: #### 8 [id number] ####KADEN Urinalysis Automated Zkqqrlyvtw5131 [place] [address] UA WBC >50 Abnormal 0-5 [facility] Comment on above: Performed By: #### 8 [id number] ####KADEN Urinalysis Automated Laowaleqbi1125 [place] [address] Urine, color Yellow Normal Yellow [facility] Comment on above: Performed By: #### 8 [id number] ####KADEN Urinalysis Automated Gmdqzgqnlo5420 [place] [address] Urine, erythrocytes 5-10 Abnormal 0-3 [facility] Comment on above: Performed By: #### 8 [id number] ####KADEN Urinalysis Automated Qcijyysfwe1050 [place] [address] Urine, glucose Negative Normal Negative [facility] Comment on above: Performed By: #### 8 [id number] ####KADEN Urinalysis Automated Nwasxnpmrm9830 [place] [address] Urine, ketones presence Negative Normal Negative [facility] Comment on above: Performed By: #### 8 [id number] ####KADEN Urinalysis Automated Klcdtwaizc1217 [place] [address] Urine, urobilinogen Negative Normal Negative [facility] Comment on above: Performed By: #### 8 [id number] ####KADEN Urinalysis Automated Hhjuxdjpki3089 [place] [address] Vital Signs Date Time Vital Sign Value Performing Clinician Facility 07-18-2023 10:30-0500 Body mass index (BMI) [Ratio] 26.7 kg/m2 [employer] Work Phone: [facility] 07-18-2023 10:30-0500 Body weight 75.03 kg [employer] Work Phone: [facility] 07-18-2023 10:30-0500 Diastolic blood pressure 68 mm[Hg] [employer] Work Phone: [facility] 07-18-2023 10:30-0500 Systolic blood pressure 106 mm[Hg] Cuong Diana DO Work Phone: [facility] 02-11-2023 14:13-0400 Body height 165.1 cm PA-Ventura Wyatt Work Phone: [facility] 02-11-2023 14:13-0400 Body temperature 97.9 [degF] PA-C Andie Wyatt Work Phone: [facility] 02-11-2023 14:13-0400 Body weight 70.55 kg PA-C Andie Wyatt Work Phone: [facility] 02-11-2023 14:13-0400 Diastolic blood pressure 80 mm[Hg] PA-Ventura Wyatt Work Phone: [facility] 02-11-2023 14:13-0400 Heart rate 60 /min FERMIN-Ventura Wyatt Work Phone: [facility] 02-11-2023 14:13-0400 Respiratory rate 15 /min FERMIN-C Andie Wyatt Work Phone: [facility] 02-11-2023 14:13-0400 SaO2% (BldA) [Mass fraction] 99 % FERMIN-Ventura Wyatt Work Phone: [facility] 02-11-2023 14:13-0400 Systolic blood pressure 134 mm[Hg] PA-Ventura Wyatt Work Phone: [facility] 02-08-2023 12:36-0400 Body height 165.1 cm PA-Ventura Wyatt Work Phone: [facility] 02-08-2023 12:36-0400 Body temperature 98.2 [degF] FERMIN-Ventura Wyatt Work Phone: [facility] 02-08-2023 12:36-0400 Body weight 72.57 kg PA-Ventuar Wyatt Work Phone: [facility] 02-08-2023 12:36-0400 Diastolic blood pressure 84 mm[Hg] PA-Ventura Wyatt Work Phone: [facility] 02-08-2023 12:36-0400 Heart rate 74 /min PA-Ventura Wyatt Work Phone: [facility] 02-08-2023 12:36-0400 Respiratory rate 15 /min SADAF Wyatt Work Phone: [facility] 02-08-2023 12:36-0400 SaO2% (BldA) [Mass fraction] 98 % PA-C Andie Wyatt Work Phone: [facility] 02-08-2023 12:36-0400 Systolic blood pressure 150 mm[Hg] PA-Ventura Wyatt Work Phone: [facility] 12-19-2022 14:43-0400 Body temperature 96.9 [degF] SADAF Wyatt Work Phone: [facility] 12-19-2022 14:43-0400 Diastolic blood pressure 74 mm[Hg] PA-Ventura Wyatt Work Phone: [facility] 12-19-2022 14:43-0400 Heart rate 59 /min SADAF Wyatt Work Phone: [facility] 12-19-2022 14:43-0400 Respiratory rate 18 /min SADAF Wyatt Work Phone: [facility] 12-19-2022 14:43-0400 SaO2% (BldA) [Mass fraction] 100 % PA-Ventura Wyatt Work Phone: [facility] 12-19-2022 14:43-0400 Systolic blood pressure 115 mm[Hg] PA-Ventura Wyatt Work Phone: [facility] 12-19-2022 14:00-0400 Diastolic blood pressure 89 mm[Hg] PA-Ventura Wyatt Work Phone: [facility] 12-19-2022 14:00-0400 Heart rate 79 /min PA-C Andie Wyatt Work Phone: [facility] 12-19-2022 14:00-0400 Respiratory rate 16 /min PA-C Andie Wyatt Work Phone: [facility] 12-19-2022 14:00-0400 SaO2% (BldA) [Mass fraction] 99 % PA-C Andie Wyatt Work Phone: [facility] 12-19-2022 14:00-0400 Systolic blood pressure 150 mm[Hg] PA-C Andie Wyatt Work Phone: [facility] 12-19-2022 03:30-0400 Body height 165.1 cm PA-C Andie Wyatt Work Phone: [facility] 12-19-2022 03:30-0400 Body weight 72.2 kg PA-C Andie Wyatt Work Phone: [facility] 12-18-2022 23:07-0400 Body height 165.1 cm PA-C Andie Wyatt Work Phone: [facility] 12-18-2022 23:07-0400 Body weight 74.2 kg PA-Ventura Wyatt Work Phone: [facility] 12-18-2022 23:05-0400 Body temperature 98.5 [degF] FERMIN-Ventura Wyatt Work Phone: [facility] 08-20-2022 14:31-0500 Body height 165.1 cm PA-C Andie Wyatt Work Phone: [facility] 08-20-2022 14:31-0500 Body temperature 98.9 [degF] FEMRIN-C Andie Wyatt Work Phone: [facility] 08-20-2022 14:31-0500 Body weight 71.55 kg PAZhao Wyatt Work Phone: [facility] 08-20-2022 14:31-0500 Diastolic blood pressure 87 mm[Hg] PA-C Andie Wyatt Work Phone: [facility] 08-20-2022 14:31-0500 Heart rate 97 /min PA-C Andie Wyatt Work Phone: [facility] 08-20-2022 14:31-0500 Respiratory rate 18 /min PA-C Andie Wyatt Work Phone: [facility] 08-20-2022 14:31-0500 SaO2% (BldA) [Mass fraction] 98 % PA-C Andie Wyatt Work Phone: [facility] 08-20-2022 14:31-0500 Systolic blood pressure 135 mm[Hg] PA-C Andie Wyatt Work Phone: [facility] 02-08-2022 03:06-0400 Body weight 68.[address] CUONG ORTIZ . [facility] Comment on above: Performed By: #### AFPMAT #### [facility] [address] [place] [address] Dr. Juan Antonio Ibarra 02-05-2022 18:24-0400 Body height 165.1 cm PA-C Andie Wyatt Work Phone: [facility] 02-05-2022 18:24-0400 Body temperature 98.3 [degF] PA-Ventura Wyatt Work Phone: [facility] 02-05-2022 18:24-0400 Body weight 67.9 kg PA-Ventura Wyatt Work Phone: [facility] 02-05-2022 18:24-0400 Diastolic blood pressure 68 mm[Hg] PA-Ventura Wyatt Work Phone: [facility] 02-05-2022 18:24-0400 Heart rate 92 /min PA-Ventura Wyatt Work Phone: [facility] 02-05-2022 18:24-0400 Respiratory rate 18 /min PA-Ventura Wyatt Work Phone: [facility] 02-05-2022 18:24-0400 SaO2% (BldA) [Mass fraction] 99 % SADAF Wyatt Work Phone: [facility] 02-05-2022 18:24-0400 Systolic blood pressure 125 mm[Hg] SADAF Wyatt Work Phone: [facility] Encounters Encounter Date Encounter Type Care Provider Facility Start: 10-28-2023 End: 10-28-2023 ambulatory CUONG DIANA Not Available Start: 10-14-2023 End: 10-14-2023 ambulatory CUONG DIANA Not Available Start: 09-30-2023 End: 09-30-2023 ambulatory CUONG DIANA Not Available Start: 09-12-2023 End: 09-12-2023 ambulatory CUONG DIANA Not Available Start: 08-15-2023 End: 08-15-2023 ambulatory [facility] Start: 08-15-2023 End: 08-15-2023 ambulatory CUONG DIANA Not Available Start: 07-22-2023 Documentation procedure Lucio HARPER Work Phone: [facility] Comment on above: Outgoing Ca ll [...] pre gnancy Start: 07-18-2023 End: 07-18-2023 ambulatory [facility] Start: 07-03-2023 End: 07-03-2023 ambulatory CUONG R [facility] Start: 07-03-2023 End: 07-03-2023 Telemedicine consultation with patient Rosaura BANKS Work Phone: [facility] Comment on above: Family history of ge netic disorder (Primary Dx); Genetic testing; Fetus with trisomy 13, single gestation Start: 06-20-2023 End: 06-20-2023 ambulatory BARB KRAMER Not Available Start: 05-23-2023 End: 05-23-2023 ambulatory CUONG ORTIZ Not Available Start: 04-16-2023 ambulatory Cesar Clayton acility:[facility] Start: 02-11-2023 End: 02-11-2023 Emergency department patient visit Johnson Valencia Facility:[facility] Start: 02-11-2023 End: 02-11-2023 Emergency department patient visit SADAF Wyatt Work Phone: [facility] Work Phone: Start: 02-08-2023 End: 02-08-2023 Emergency department patient visit Elle Rhodes Facility:[facility] Start: 02-08-2023 End: 02-08-2023 Emergency department patient visit SADAF Wyatt Work Phone: [facility] Work Phone: Start: 12-19-2022 End: 12-19-2022 ambulatory Arden Orozco Facility:[facility] Start: 12-19-2022 End: 12-19-2022 Evaluation and management of inpatient SADAF Wyatt Work Phone: [facility] Work Phone: Start: 12-19-2022 End: 12-19-2022 observation encounter SADAF Wyatt Work Phone: [facility] Work Phone: Start: 10-24-2022 End: 10-24-[address] CUONG ORTIZ . Facility: Start: 10-23-2022 Registered Recurring SADAF Wyatt Work Phone: [facility] Start: 08-20-2022 End: 08-20-2022 Emergency department patient visit Elle Rhodes Facility:[facility] Start: 08-20-2022 End: 08-20-2022 Emergency department patient visit SADAF Wyatt Work Phone: [facility] Work Phone: Start: 07-23-[address] CUONG ORTIZ . Facili ty:[facility] Start: 07-09-2022 End: 07-09-[address] CUONG ORTIZ . Facility: Start: 07-05-2022 End: 07-07-2022 Evaluation and management of inpatient DR CUONG ORTIZ . Facility: Start: 07-02-2022 End: 07-02-2022 [facility] Facility: Start: 06-28-2022 End: 06-28-[address] CUONG ORTIZ . Facility: Start: 06-21-2022 End: 06-21-2022 [facility] Facility:[facility] Start: 06-16-2022 End: 06-16-2022 [...] . Facility:[facility] Start: 05-24-2022 End: 05-24-2022 [facility] Facility:[facility] Start: 04-04-2022 End: 04-05-2022 [...] department patient visit SADAF Wyatt Work Phone: [facility] Start: 12-26-2021 End: 12-27-[address] CUONG ORTIZ . Facility:[facility] Start: 12-07-2021 End: 12-08-[address] CUONG ORTIZ . Facility: Start: 12-27-2017 End: 12-27-2017 Patient encounter Christian Ivan Facility:[facility] Start: 12-12-2017 End: 12-12-2017 Emergency department patient visit Luke Barbosa Facility:[facility] Start: 12-12-2017 Patient encounter Facil [id number] Start: 12-07-2017 Evaluation and management of inpatient CLARA JAMA Facility:[facility] Start: 12-03-2017 Evaluation and management of inpatient CLARA JAMA Facility:[facility] Start: 12-03-2017 Patient encounter procedure CLARA JAMA Facility:[facility] Start: 12-02-2017 Evaluation and management of inpatient CLARA JAMA Facility:[facility] Start: 11-30-2017 End: 12-02-2017 Evaluation and management of inpatient CLARA TERESA JAMA [facility] Start: 11-30-2017 End: 11-30-2017 Patient encounter Salomon Nguyen Facility:[facility] Start: 11-30-2017 Patient encounter Facil [id number] Start: 11-28-2017 End: 11-28-2017 Patient encounter CLARA JAMA [facility] Start: 11-21-2017 End: 11-21-2017 Patient encounter OKSANA MASON [facility] Start: 11-21-2017 End: 11-21-2017 Patient encounter Juanita Cole Facility:[facility] Start: 11-20-2017 Patient encounter Facil [id number] Start: 11-17-2017 End: 11-17-2017 Patient encounter Christian Ivan Facility:[facility] Start: 11-16-2017 Patient encounter Facil [id number] Start: 11-07-2017 End: 11-07-2017 Patient encounter OKSANA AMADO [facility] Start: 10-31-2017 End: 10-31-2017 Patient encounter CLARA JAMA [facility] Start: 10-24-2017 End: 10-24-2017 Patient encounter MARCO ANTONIO ANTONIO [facility] Start: 10-16-2017 End: 10-16-2017 Patient encounter Christian Ivan Facility:[facility] Start: 10-08-2017 End: 10-08-2017 Patient encounter [facility] Start: 10-08-2017 End: 10-08-2017 Patient encounter OKSANA AMADO [facility] Start: 10-01-2017 End: 10-02-2017 Patient encounter Christian Ivan Facility:[facility] Start: 09-10-2017 End: 09-11-2017 Patient encounter LUIS DANIEL VALERI [facility] Start: 09-10-2017 End: 09-10-2017 Patient encounter KRIS Yola HOYT [facility] Start: 09-10-2017 End: 09-10-2017 Patient encounter CLARA JAMA [facility] Start: 09-03-2017 End: 09-04-2017 Patient encounter Christian Ivan Facility:[facility] Start: 08-28-2017 Ambulatory NAGA ACOSTA [facility] Start: 08-13-2017 End: 08-14-2017 Patient encounter CLARA JAMA [facility] Start: 08-13-2017 End: 08-13-2017 Patient encounter MEREDITH BENITO [facility] Start: 08-13-2017 End: 08-13-2017 Patient encounter [facility] Start: 08-10-2017 End: 08-10-2017 Emergency department patient visit Luke Barbosa Facility:[facility] Start: 08-06-2017 End: 08-07-2017 Patient encounter Christian Ivan Facility:[facility] Start: 07-23-2017 End: 07-24-2017 Patient encounter Christian Thibodeaux Edmondson Facility:[facility] Start: 07-18-2017 End: 07-18-2017 Patient encounter CLARA JAMA [facility] Start: 07-09-2017 End: 07-10-2017 Patient encounter Christian Ivan Facility:[facility] Start: 06-25-2017 End: 06-26-2017 Patient encounter Christian Ivan Facility:[facility] Start: 06-12-2017 End: 06-12-2017 Patient encounter Christian Ivan Facility:[facility] Start: 05-14-2017 End: 05-15-2017 Patient encounter Christian Thibodeaux Edmondson Facility:[facility] Start: 05-01-2017 End: 05-02-2017 Patient encounter Salomon Nguyen Facility:[facility] Start: 04-23-2017 End: 04-23-2017 Patient encounter Yasmin Evans Facility:[facility] Start: 04-22-2017 End: 04-22-2017 Emergency department patient visit Luke Barbosa Facility:[facility] Start: 04-18-2017 End: 04-18-2017 Emergency department patient visit Luke Barbosa Facility:[facility] Start: 04-16-2017 End: 04-17-2017 Patient encounter Gamaliel Savage Facility:[facility] Start: 04-16-2017 End: 04-17-2017 Patient encounter Christian Ivan Facility:[facility] Start: 04-11-2017 End: 04-11-2017 Emergency department patient visit Nodr No Doctor Assigned Facility:[facility] Start: 03-26-2017 End: 03-27-2017 Patient encounter Luke Barbosa Facility:[facility] Start: 03-20-2017 End: 03-20-2017 Emergency department patient visit Nodr No Doctor Assigned Facility:[facility] Start: 03-01-2017 End: 03-01-2017 Emergency department patient visit Nodr No Doctor Assigned Facility:[facility] Procedures Date Procedure Procedure Detail Performing Clinician [...] on above: Result Comment: PERF ORMED BY: [facility] [address] [place] [address] PATHOLOGIST SUBWAY REPAIR SUPERVISOR MALVIN MEDLEY M.D. Start: 12-19-2022 X-ray [...] Adult depression scr eening assessment Rosaurailda Renee [facility] Work Phone: Start: 11-30-2017 Antibody screen SHAINA JAMA Comment on above: Performed By: #### T &S #### [place] [address] Aerobic microbial culture FERMIN Wyatt Work Phone: Investigation of transfusion reaction SADAF Wyatt Work Phone: Plan of Treatment Date Care Activity Detail Author Start: 12-18-2032 DTaP,Tdap and Td Vaccines (10 - Td or Tdap) DTaP,Tdap and Td Vaccines (10 - Td or Tdap) [facility] Start: 09-11-2023 Adult BMI Screening Adult BMI Screening [facility] Start: 09-11-2023 Tobacco Screening Tobacco Screening [facility] Start: 08-15-2023 End: 08-15-2023 Patient encounter procedure 08/15/2023 2:15 PM EST Appointment [facility] [address] [phone] [facility] Start: 08-15-2023 End: 08-15-2023 Patient encounter procedure 08/15/2023 9:10 AM EST Routine [facility] [address] [place] [phone] Cuong Ortiz, DO [address] [place] [address] [facility] Start: 07-18-2023 End: 07-18-2023 Patient encounter procedure 07/18/2023 8:00 AM EST Appointment [facility] [address] [address] [facility] [place] Start: 05-02-2023 Depression Screening Depression Screening [facility] Start: 02-15-2023 COVID-19 Vaccine () COVID-19 Vaccine () [facility] Start: 02-15-2023 Influenza vaccination [facility] Start: 12-19-2022 Bacteria identified in Urine by Culture Urine Culture [facility] Start: 12-19-2022 [facility] Start: 12-19-2022 CT of head without contrast CT head/brain wo con [facility] Start: 12-19-2022 CT Unspecified body region WO contrast [facility] Start: 12-19-2022 Consultation [facility] Start: 12-19-2022 Hospital admission [facility] Start: 12-19-2022 X-ray of left foot XR foot LT 2V [facility] Start: 12-19-2022 XR Foot - left 2 Views [facility] Start: 12-18-2022 Computed tomography of thoracic spine without contrast CT thoracic spine wo [facility] Start: 12-18-2022 CT cervical spine without contrast CT cervical spine wo [facility] Start: 12-18-2022 CT Cervical spine WO contrast [facility] Start: 12-18-2022 CT Lumbar spine WO contrast [facility] Start: 12-18-2022 CT of head without contrast CT head/brain wo con [facility] Start: 12-18-2022 CT of lumbar spine without contrast CT lumbar spine wo [facility] Start: 12-18-2022 CT Thoracic spine WO contrast [facility] Start: 12-18-2022 CT Unspecified body region WO contrast [facility] Start: 12-18-2022 Pelvis X-ray XR pelvis 1-2V [facility] Start: 12-18-2022 Plain chest X-ray XR chest 1V portable [facility] Start: 12-18-2022 X-ray of both knees XR knee BI 2V [facility] Start: 12-18-2022 XR Chest Single view [facility] Start: 12-18-2022 XR Knee - bilateral 2 Views [facility] Start: 12-18-2022 XR Pelvis 1 or 2 Views [facility] Start: 2022 Screening for malignant neoplasm of cervix [facility] Start: 02-05-2022 [facility] Work Phone: Start: 2013 Screening for malignant neoplasm of cervix Pap Smear [facility] Start: 2010 Adult BMI Follow Up Plan Adult BMI Follow Up Plan [facility] Anaerobic microbial culture Anaerobic Culture [facility] Bacteria identified in Urine by Culture [facility] Patient Education [facility] Work Phone: Patient referral [facility] Work Phone: Immunizations Immunization Date Immunization Notes Care Provider Fa hector 12-18-2022 tetanus toxoid, redu swati diphtheria toxoid, and acellular pertussis vaccine, adsorbed SADAF Wyatt Work Phone: [facility] 05-19-2013 influenza virus vaccine, unspecified formulation Rosaura BANKS Work Phone: [facility] Payers Date Payer Category Payer Self-pay 2017 Medicaid 2017 Unknown 1992 Unknown [id number] 2.16.840.1.772726.3.579.2.278 1992 Unknown [id number] 2.16.840.1.908031.3.579.2.278 1992 Unknown [id number] 2.16.840.1.435538.3.579.2.278 1992 Unknown [id number] 2.16.840.1.131467.3.579.2.278 1992 Unknown [id number] 2.16.840.1.854547.3.579.2.593 1992 Unknown [id number] 2.16.840.1.870743.3.579.2.593 1992 Unknown [id number] 2.16.840.1.898063.3.579.2.593 1992 Unknown [id number] 2.16.840.1.642299.3.579.2.593 1992 Unknown [id number] 2.16.840.1.344238.3.579.2.593 1992 Unknown [id number] 2.16.840.1.120015.3.579.2.593 1992 Unknown [id number] 2.16.840.1.234902.3.579.2.593 1992 Unknown [id number] 2.16.840.1.498927.3.579.2.593 1992 Unknown [id number] 2.16.840.1.683114.3.579.2.593 1992 Unknown [id number] 2.16.840.1.370054.3.579.2.59 1992 Unknown [id number] 2.16.840.1.340764.3.579.2.593 1992 Unknown [id number] 2.16.840.1.766815.3.579.2.59 1992 Unknown [id number] 2.16.840.1.178369.3.579.2.593 1992 Unknown [id number] 2.16.840.1.867559.3.579.2.59 1992 Unknown [id number] 2.16.840.1.171001.3.579.2.593 1992 Unknown [id number] 2.16.840.1.171855.3.579.2.59 1992 Unknown [id number] 2.16.840.1.996827.3.579.2.593 1992 Unknown [id number] 2.16.840.1.931183.3.579.2.59 1992 Unknown [id number] 2.16.840.1.378655.3.579.2.593 1992 Unknown [id number] 2.16.840.1.226283.3.579.2.593 1992 Unknown [id number] 2.16.840.1.193427.3.579.2.593 1992 Unknown [id number] 2.16.840.1.338614.3.579.2.593 1992 Unknown [id number] 2.16.840.1.295295.3.579.2.1286 1992 Unknown [id number] 2.16.840.1.233352.3.579.2.128 1992 Unknown [id number] 2.16.840.1.577733.3.579.2.128 1992 Unknown [id number] 2.16.840.1.902893.3.579.2.1258 1992 Unknown [id number] 2.16.840.1.935437.3.579.2.9 1992 Unknown [id number] 2.16.840.1.995263.3.579.2.1258 1992 Unknown [id number] 2.16.840.1.878258.3.579.2.9 1992 Unknown [id number] 2.16.840.1.858785.3.579.2.1258 1992 Unknown [id number] 2.16.840.1.507049.3.579.2.9 1992 Unknown [id number] 2.16.840.1.358862.3.579.2.1258 1992 Unknown [id number] 2.16.840.1.884802.3.579.2.1259 1957 Medicaid [id number] 1957 Medicaid [id number] Medicaid [id number] Unknown Regular Auto/Liability [id number] Unknown [id number] 2.16.840.1.053642.3.579.2.531 Unknown [id number] 2.16840.1.636602.3.579.2.531 Unknown [id number]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
--- NOTE | 2023-11-06 13:56 | US_ITS ---
[address] [address] Patient Name: ZULEIKA WADDELL MRN: [id number] date: 1990 Sex: F Assigned Patient Location: [place] Current Patient Location: Accession/Order Number: [id number] Exam Date: 11/06/2023 14:19 Report Date: 11/06/2023 15:54 At the request of: DAVE CUELLAR Procedure: US OB growth EXAMINATION: US OB growth HISTORY: Family history of trisomy COMPARISON: No relevant comparison available. FINDINGS: Heart Rate: 150.0 bpm Amniotic Fluid Volume: 11.9 cm Number: 1.0 Position: Cephalic presentation, longitudinal lie Maximum Vertical Pocket: 5.4 cm cm 1.1 cm cm 3.1 cm cm 2.3 cm cm BIOMETRY: BPD: 8.3 cm cm; 33 weeks 4 days; 3% HC: 31.6 cmcm; 35 weeks 3 days , 8% AC: 30.9 cm cm; 34 weeks 6 days, 21% FL: 7.1 cm cm; 36 weeks 1 days; 42.7 % % EFW: 2599.6 grams, 5 lbs. 12 oz., 23% FL/AC: 22.8 FL/BPD: 84.6 HC/AC: 1.0 GESTATIONAL AGE: Age by EDC: 36 weeks 2 days HUGO by EDC: 12/02/2023 Age by US: 35 weeks 0 days HUGO by US: 12/11/2023 US/US OB growth IMPRESSION: BPD at the 3rd percentile, and head circumference at the 8th percentile Otherwise normal interval growth Electronically authenticated by: GAMALIEL CRUMP Date: 11/06/2023 15:54
--- NOTE | 2023-11-06 13:56 | US_ITS ---
[address] [address] Patient Name: ZULEIKA WADDELL MRN: [id number] date: 1990 Sex: F Assigned Patient Location: [place] Current Patient Location: [facility] Accession/Order Number: [id number] Exam Date: 11/06/2023 14:19 Report Date: 11/07/2023 07:10 At the request of: DAVE CUELLAR Procedure: US OB BPP w non-stress EXAMINATION: US OB BPP w non-stress HISTORY: Family history of trisomy COMPARISON: No relevant comparison available. TECHNIQUE: Ultrasound biophysical profile was performed in the radiology department. non-reactive stress testing was performed by nursing staff in the birthing center. FINDINGS: BREATHING MOVEMENTS: 2.0 GROSS BODY MOVEMENTS: 2.0 TONE: 2.0 QUALITATIVE AMNIOTIC FLUID VOLUME: 2.0 PRESENTATION: CEPHALIC HEART RATE: 150.0 bpm H.B./min AMNIOTIC FLUID VOLUME: 11.9 cm cm GESTATIONAL AGE: 36 weeks 2 days CONCLUSION: Total biophysical profile score: 8.0 Electronically authenticated by: GAMALIEL CRUMP Date: 11/07/2023 07:10
[2023-11-06 14:42] VITALS: BP 119/75; PULSE 78
== END 2023-11-06 15:08 | disposition home or self-care (01) ==
LOC: US 07:55 → FBC 14:06
PROVIDERS: PCP Physician Assistant; Visit Provider Obstetrics & Gynecology
DX: Z82.79 Family history of other congenital malformations, deformations and chromosomal abnormalities (principal); Z3A.36 36 weeks gestation of pregnancy
CPT/HCPCS: 76816; 76818

== ENCOUNTER 2023-11-06 22:59 | Inpatient (IN) | payer MEDICAID, SELFPAY ==
--- OUTSIDE RECORDS SUMMARY | 2023-11-06 23:05 | XMS_ITS | CCD ---
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 Name Role Phone EVITACLARA Unavailable Unavail able SERENITY MALDONADO Unavailable Unavailable OKSANA CARO Unavailable UnavaNAGA Hull Unavailable Unavailable BARBOSA, LUKE MALIK Unavailable Unavailable Salomon Nguyen Unavailable Unavailable Salomon Nguyen Unavailable Unavailable Barbosa, Luke Unavailable Unavailable Kimble, Christian A Unavailable Unavailable Barbosa, Luke Unavailable Unavailable Kimble, Christian A Unavailable Unavailable Barbosa, Luke Unavailable Unavailable Shekhar, Christian A Unavailable Unavailable Barbosa, Luke Unavailable Unavailable Kimble, Christian A Unavailable Unavailable Barbosa, Luke Unavailable Unavailable Kimble, Christian A Unavailable Unavailable Shekhar, Christian A Unavailable Unavailable Barbosa, Luke Unavailable Unavailable Shekhar, Christian A Unavailable Unavailable Barbosa, Luke Unavailable Unavailable Kimble, Christian A Unavailable Unavailable Kimble, Christian A Unavailable Unavailable Barbosa, Luke Unavailable Unavailable Barbosa, Luke Unavailable Unavailable Woo, Emiliano Unavailable Unavailable Woo, Emiliano Unavailable Unavailable Patrick Salomon R Unavailable Unavailable Barbosa, Luke Unavailable Unavailable Barbosa, Luke Unavailable Unavailable Oscar, Jag W Unavailable Unavailable Victoria, Jag W Unavailable Unavailable Kimble, Christian A Unavailable Unavailable Barbosa, Luke Unavailable Unavailable Kimble, Christian A Unavailable Unavailable Barbosa, Luke Unavailable Unavailable No Doctor Assigned, Nodr Unavailable Unavail able Ivanauskas, Saulius Unavailable Unavailable Ivanauskas, Saulius Unavailable Unavailable Savage, Gamaliel M Unavailable Unavailable Savage, Gamaliel M Unavailable Unavailable Barbosa, Luke Unavailable Unavailable Granger, Yasmin D Unavailable Unavailable Barbosa, Luke Unavailable [...] Unavailable Unavailable Shekhar, Christian A Unavailable Unavailable Kimble, Christian A Unavailable Unavailable Barbosa, Luke Unavailable Unavailable Shekhar, Christian A Unavailable Unavailable Barbosa, Luke Unavailable Unavailable Barbosa, Luke Unavailable Unavailable Victoria, Jag W Unavailable Unavailable Oscar, Jag W Unavailable Unavailable Shekhar, Christian A Unavailable Unavailable Barbosa, Luke Unavailable Unavailable Savage, Gaamliel M Unavailable Unavailable Savage, Gamaliel M Unavailable Unavailable Barbosa, Luke Unavailable Unavailable Kimble, Christian A Unavailable Unavailable Barbosa, Luke Unavailable [...] Emergency Provider [facility]AF [facility]att [facility] Elle Whitney Emergency Provider DR CUONG PAGAN Consulting Unavailable [facility] Primary Care Unavailable DIANA ., DR ACOSTA Attending Unavailable DIANA ., DR ACOSTA Admitting Unavailable DIANA ., DR ACOSTA Admitting Unavailable DIANA ., DR ACOSTA Attending Unavailable [facility] Primary Care Unavailable DIANA ., DR ACOSTA Consulting Unavailable SUSI, DR FELECIA Chadwick Consulting Unavailable [facility] Primary Care Unavailable JUANAK .DR CAMACHO Admitting Unavailabl e KARASIK ., DR CAMACHO Attending Unavailabl e KARASIK ., DR CAMACHO Consulting Unavailabl e WEST, DR GAMALIEL Fischer Consulting Unavailable DIANA ., DR ACOSTA Consulting Unavailable ZIEBER, DR FELECIA Chadwick Consulting Unavailable WILLIAMS ., BARB Admitting Unavailable WILLIAMS ., BARB Attending Unavailable [facility] Primary Care Unavailable WILLIAMS ., BARB Consulting Unavailable DIANA ., DR ACOSTA Admitting Unavailable DIANA ., DR ACOSTA Attending Unavailable [facility] Primary Care Unavailable DIANA ., DR ACOSTA Consulting Unavailable [facility] Primary Care Unavailable KARASIK ., DR CAMACHO Admitting Unavailabl e KARASIK ., DR CAMACHO Attending Unavailabl e KARASIK ., DR CAMACHO Consulting Unavailabl e DIANA ., DR ACOSTA Admitting Unavailable DIANA ., DR ACOSTA Attending Unavailable [facility] Primary Care Unavailable DIANA ., DR ACOSTA Consulting Unavailable ZIEBER, DR FELECIA Chadwick Consulting Unavailable DIANA ., DR ACOSTA Admitting Unavailable DIANA ., DR ACOSTA Attending Unavailable [facility] Primary Care Unavailable DIANA ., DR ACOSTA Consulting Unavailable ZIEBER, DR FELECIA Chadwick Consulting Unavailable PRATIMA, BRODIE Consulting Unavailable DIANA ., DR ACOSTA Consulting Unavailable [facility] Primary Care Unavailable DIANA ., DR ACOSTA Attending Unavailable DIANA ., DR ACOSTA Admitting Unavailable ZIEBER, DR FELECIA Chadwick Consulting Unavailable DIANA ., DR ACOSTA Consulting Unavailable [facility] Primary Care Unavailable DIANA ., DR ACOSTA Attending Unavailable DIANA ., DR ACOSTA Admitting Unavailable DIANA ., DR ACOSTA Admitting Unavailable DIANA ., DR ACOSTA Attending Unavailable [facility] Primary Care Unavailable DIANA ., DR ACOSTA Consulting Unavailable ZIEBER, DR FELECIA Chadwick Consulting Unavailable DIANA ., DR ACOSTA Admitting Unavailable DIANA ., DR ACOSTA Attending Unavailable [facility] Primary Care Unavailable WEST, DR GAMALIEL Fischer Consulting Unavailable DIANA ., DR ACOSTA Consulting Unavailable [facility] Primary Care Unavailable KARASIK ., DR CAMACHO Admitting Unavailabl e KARASIK ., DR CAMACHO Attending Unavailabl e KARASIK ., DR CAMACHO Consulting Unavailabl e DIANA ., DR ACOSTA Consulting Unavailable ZIEBER, DR FELECIA Chadwick Consulting Unavailable DIANA ., DR ACOSTA Admitting Unavailable DIANA ., DR ACOSTA Attending Unavailable [facility] Primary Care Unavailable WEST, DR GAMALIEL Fischer Consulting Unavailable DIANA ., DR ACOSTA Consulting Unavailable DIANA ., DR ACOSTA Admitting Unavailable DIANA ., DR ACOSTA Attending Unavailable [facility] Primary Care Unavailable DIANA ., DR ACOSTA Consulting Unavailable DIANA ., DR ACOSTA Admitting Unavailable DIANA ., DR ACOSTA Attending Unavailable [facility] Primary Care Unavailable DIANA ., DR ACOSTA Consulting Unavailable ZIEBER, DR FELECIA Chadwick Consulting Unavailable DIANA ., DR ACOSTA Admitting Unavailable DIANA ., DR ACOSTA Attending Unavailable [facility] Primary Care Unavailable DIANA ., DR ACOSTA Consulting Unavailable DIANA ., DR ACOSTA Admitting Unavailable DIANA ., DR ACOSTA Attending Unavailable [facility] Primary Care Unavailable DIANA ., DR ACOSTA Consulting Unavailable [facility] Primary Care Unavailable DIANA ., DR ACOSTA Attending Unavailable DIANA ., DR ACOSTA Admitting Unavailable DIANA ., DR ACOSTA Admitting Unavailable DIANA ., DR ACOSTA Attending Unavailable [facility] Primary Care Unavailable DIANA ., DR ACOSTA Admitting Unavailable DIANA ., DR ACOSTA Attending Unavailable [facility] Primary Care Unavailable KARASIK ., DR CAMACHO Consulting Unavailabl e DIANA ., DR ACOSTA Consulting Unavailable DIANA ., DR ACOSTA Procedure Practitioner Unavail able ORLANDO PRASAD Consulting Unavailable JACQUES FLETCHER Consulting Unavailable DIANA ., DR ACOSTA Admitting Unavailable DIANA ., DR ACOSTA Attending Unavailable [facility] Primary Care Unavailable KARASIK ., DR CAMACHO Consulting Unavailabl e ZIEBER, DR FELECIA Chadwick Consulting Unavailable SADAF Wyatt Primary Care Provider MD Farahn Jean Attending Provider DO Lui Oscar Emergency Provider Itzkowitz, DO Arden Admit Provider Itzkocece, DO Arden Attending Provider FRED Ventura Other Provider UnavailMD Juan Edwards Other Provider BRISA MoniqueC Ailyn Other Provider [phone] MD Jacques Valerio Other Provider MD Edith Urias Other Provider SADAF Wyatt Primary Care Provider Meagan, VEST BUSHELER-BC Elle E Emergency Provider BRANNON Valencia Emergency [...] ORTIZ Attending Unavailable CUONG ORTIZ Attending Unavailable DIANACUONG Powell Attending Unavailable DIANACUONG Attending Unavailable DIANA, CUONG Attending Unavailable DIANA, CUONG Attending Unavailable DIANA, CUONG Attending Unavailable DIANA, CUONG Attending Unavailable Allergies Allergy Classification Reported Allergen(s) Allergy Type Date of Onset Reaction(s) Facility (2 sources) Bee; Translations: [BEES] Propensity to adverse reactions (disorder) 8 [facility] Repository (2 sources) Mold spore; Translations: [MOLD SPORES] Propensity to adverse reactions (disorder) 8 [facility] Repository (18 sources) Penicillins; Translations: [PENICILLINS] Propensity to adverse reactions to drug (disorder) 4 [facility] Repository (12 sources) Sulfonamides (Antibiotic); Translations: [SULFA (SULFONAMIDE ANTIBIOTICS)] Propensity to adverse reactions to drug (disorder) 8 [facility] Repository (1 source) Bee/Wasp/Ant venom; Translations: [Bee Stings] Propensity to adverse reactions to drug (disorder) [facility] Repository (1 source) mold extract; Translations: [Mold] Drug Allergy [facility] Repository (1 source) Sulfonamides (Antibiotic); Translations: [sulfa drugs] Propensity to adverse reactions to drug (disorder) [facility] Repository (4 sources) bee venom; Translations: [BEE VENOM] Propensity to adverse reactions to drug (disorder) 8 [facility] Repository (1 source) OTHER; Translations: [OTHER] Propensity to adverse reactions to food (disorder) 8 [facility] Repository (1 source) MOLDS & SMUTS; Translations: [MOLDS & SMUTS] Propensity to adverse reactions to drug (disorder) 8 [facility] Repository (4 sources) SULFA ANTIBIOTICS; Translations: [SULFA ANTIBIOTICS] Propensity to adverse reactions to drug (disorder) 8 [facility] Repository (1 source) Sulfonamides (Antibiotic) Drug allergy (disorder) [address] [facility] [place] [facility] Repository (4 sources) Bee Venom Protein (Honey Bee); Translations: [BEE VENOM PROTEIN (HONEY BEE)] Propensity to adverse reactions to drug 2 [employer] [facility] (1 source) Penicillin Drug Allergy 2 [facility] Repository (1 source) Sulfacetamide Drug Allergy 2 [facility] Repository Medications Current Medications Medication Drug [...] mouth in the morning. 0 02/27/2023 Active Jupiter (No Known Home Meds) (2 sources) Start: 12-18-2022 Jupiter (No Known Home Meds) Active December 18, [...] (-1 ORAL) Take by mouth. 0 Active Twkxszzu-Ybm-Sj-FA (, w/Iron & FA,) 27-0.8 MG tablet (3 sources) Pcjtvswv-Fll-Gh-FA (, w/Iron & FA,) 27-0.8 MG tablet 1 (one) time each day at the same time. 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 [facility] AFP VALUE 70.2 ng/mL . [facility] COMMENT: Comment . [facility] Comment on above: Alma Chaudhary , Ph.D., [facility] Director References: Available Upon Request. Multiples Of Median Cutoffs For AFP Elevations Briscoe 2.5 Black 2.8 IDD 2.0 Twins 4.5 Abbreviation Definitions IDD - Insulin Dep Diabetes OSBR - Open Spina Bifida Risk For further inquiries contact [employer] at [phone]. This test was developed and its performance characteristics determined by [facility]. It has not been cleared or approved by the Food and Drug Administration. Performed at: [facility] [address] [place], [place] [id number] Communication Center Coordinator: Oz Harkins [facility], Phone: [phone] GEST. AGE ON COLLECTION DATE 20.4 . weeks [facility] GESTAT. AGE BASED ON LMP . [facility] Comment on above: Recalculations are n ot recommended when gestational dating by LMP and ultrasound are within 10 days. INSULIN DEP DIABETES No . [facility] INTERPRETATION Comment . [facility] Comment on above: Interpretation: Scre en Negative [...] Customer Services to discuss available options. The [employer] recommends amniocentesis be offered to women age 35 and older. [age] [facility] MULTIPLE GESTATION No . [facility] OSBR RISK 1 IN 6301 . [facility] RACE . [facility] RESULTS Report . [facility] TEST RESULTS: Negative . [facility] WEIGHT 159 . lbs [facility] N N LMP [id number] 3 16 N 1 Y 159 N N N N White/ [facility] Urinalysis macro (dipstick) panel (U)on 07-18-2023 Bilirubin, UA Negative Negative - 4(70) +++ mg/dL [facility] Blood, UA Negative Negative - 50 Rakesh/mcL [facility] Clarity, UA Clear [facility] Color, UA Yellow [facility] Glucose, UA Negative Negative - 1999(110) ++++ mg/dL [facility] Interpretation and review of laboratory results Normal [facility] Ketones, UA Negative Negative - 160(16) ++++ mg/dL [facility] Leukocytes, UA Negative Negative - 500+++ Matti/mcL [facility] Nitrite, UA Negative Negative - Positive [facility] pH, UA 5.5 5 - 9 [facility] Protein, UA Negative Negative - 1999(20) ++++ mg/dL [facility] Spec Grav, UA 1.020 1 - 1.03 [facility] Urobilinogen, UA 1.0 0.2 - 12 mg/dL [facility] ABO/Rh Retypeon 12-19-2022 ABO/RH Recheck Result Positive Normal [facility] Comment on above: Result Comment: PERF ORMED BY: [facility] [address] [place] [address] PATHOLOGIST ORIENTOR MALIVN MEDLEY M.D. Amphetamine Screen Ql (U)Ord ered By: Oscar Poe on 12-19-2022 Amphetamines Ql (U) Negative Negative [facility] Amylaseon 12-19-2022 Amylase [Catalytic activity/Vol] 35 U/L Normal 29-103 [facility] Comment on above: Performed By: #### C BC, CREAT, GLU, LYTES, AST, ETOH, BARB, LIPASE, CK, BUN ####[facility] Aspartate Amino Transferaseo n 12-19-2022 AST [Catalytic activity/Vol] 26 U/L Normal 13-39 [facility] Comment on above: Performed By: #### C BC, CREAT, GLU, LYTES, AST, ETOH, BARB, LIPASE, CK, BUN ####[facility] Automated erythrocytes count in urine sediment (number/area)Ordered By: Oscar Poe on 12-19-2022 RBC Auto (Urine sed) [#/Area] 5-9 [HPF] 0-4 [facility] Automated leukocytes count i n urine sediment (number/area)Ordered By: Oscar Poe on 12-19-2022 WBC Auto (Urine sed) [#/Area] 10-19 [HPF] 0-4 [facility] Barbiturates [Presence] in U rine by Screen methodOrdered By: Oscar Poe on 12-19-2022 Barbiturates Screen Ql (U) Negative Negative [facility] Benzodiazepines Screen Ql (U )Ordered By: Oscar Poe on 12-19-2022 Benzodiazepines Ql (U) Negative Negative [facility] Benzoylecgonine [Presence] i n Urine by Screen methodOrdered By: Oscar Poe on 12-19-2022 Benzoylecgonine Screen Ql (U) Negative Negative [facility] Bilirubin Test strip Ql (U)O rdered By: Oscar Poe on 12-19-2022 Bilirubin Ql (U) Negative Negative [facility] Blood Urea Nitrogenon 2022 Urea nitrogen [Mass/Vol] 21 mg/dL Normal 7-25 [facility] Comment on above: Performed By: #### C BC, CREAT, GLU, LYTES, AST, ETOH, BARB, LIPASE, CK, BUN ####[place] [id number] [address] cervical spine wo conon 0 12-19-2022 CT cervical spine wo con [facility] [place] [address] [place] [address] CT Scan Report Signed Patient: Zuleika Wyatt MR#: [id number] : 1990 Acct:[id number] Age/Sex: 32 / F ADM Date: 12/19/22 Loc: Room: [address] [place] [address] Type: ADM INOo Attending Dr: Arden Orozco DO Copies to: DO Arden Jefferson DO Ordering Provider: Oscar Poe DO Date of Service: 12/18/22 CT/CT cervical spine wo con: f ([id number]) CT/CT head/brain wo con: f CT BRAIN [...] FRACTURE Impression dictated by: Rah Pimentel Jr., D.Florian12/19/2022 10:25 AM Dictation Location: [place] [address] Transcribed By: [facility] 12/19/22 1025 Dictated By: Rah Pimentel Jr, DO 12/19/22 1016 Signed By: 12/19/22 1025 [facility] CT head/brain wo conon 12-19 CT head/brain wo con [facility] [place] [address] CT Scan Report Signed Patient: Zuleika Wyatt MR#: [id number] : 1990 Acct:[id number] Age/Sex: 32 / F ADM Date: 12/19/22 Loc: Room: [address] [place] [address] Type: DIS INOo Attending Dr: Arden Orozco [...] Pimentel Jr., D.O.12/19/2022 3:28 PM Dictation Location: [place] [address] Transcribed By: [facility] 12/19/22 1528 Dictated By: Rah Pimentel Jr, DO 12/19/22 1524 Signed By: 12/19/22 1528 [facility] CT lumbar spine wo [facility] CT lumbar spine wo [facility] [place] [address] CT Scan Report Signed Patient: Zuleika Wyatt MR#: [id number] : 1990 Acct:[id number] Age/Sex: 32 / F ADM Date: 12/19/22 Loc: Room: [address] [place] [address] Type: ADM INOo Attending Dr: Arden Orozco DO Copies to: DO Arden Jefferson DO Ordering Provider: Oscar Poe DO Date of Service: 12/18/22 CT/CT thoracic spine wo con: f ([id number]) CT/CT lumbar spine wo con: f CT [...] narrowing or hypertrophy. The ribs within the ghsga-xv-mgyu appear intact. No paraspinal soft tissue abnormalities are present. The ascending aorta is mildly ectatic. The heart is not fully imaged though it is at least borderline prominent. There is no consolidation, pleural effusion or pneumothorax within the dzusk-ox-rzyj. No lumbar compression fractures are identified. There [...] The intra-abdominal and pelvic structures within the vlhou-yc-vzsu show no contributory findings. CT/CT thoracic spine wo con IMPRESSION: MILD THORACIC SCOLIOSIS. NO ACUTE BONY INJURY INVOLVING THE THORACIC OR LUMBAR SPINE. Impression dictated by: Adela Mahan M.D.12/19/2022 10:36 AM Dictation Location: [place] [address] Transcribed By: [facility] 12/19/22 1036 Dictated By: Adela Mahan MD 12/19/22 1026 Signed By: 12/19/22 1036 Normal [facility] Cannabinoids [Presence] in U rine by Screen methodOrdered By: Oscar Poe on 12-19-2022 Cannabinoids Screen Ql (U) Positive Negative [facility] Comment on above: These are unconfirme d results and should not be used for legal purposes. Drug Cut-Off Concentration: AMPH 1000 ng/mL SEEMA 200 ng/mL LAZ 200 ng/mL COCM 300 ng/mL OP 300 ng/mL PCP 25 ng/mL THC 20 ng/mL Color Auto (U)Ordered By: Fernando Poe on 12-19-2022 Color (U) Yellow Yellow [facility] Complete Blood Count Auto Di ffon 12-19-2022 Basophils (Bld) [#/Vol] 0.1 10*3/uL Normal 0.0-0.2 [facility] Comment on above: Result Comment: PERF ORMED BY: [facility] [address] [place] [address] PATHOLOGIST ORIENTOR MALVIN MEDLEY M.D. Performed By: #### C BC, CREAT, GLU, LYTES, AST, ETOH, BARB, LIPASE, CK, BUN ####[address] Basophils/100 WBC (Bld) 0.7 % Normal . [facility] Comment on above: Performed By: #### C BC, CREAT, GLU, LYTES, AST, ETOH, BARB, LIPASE, CK, BUN ####[address] Eosinophils (Bld) [#/Vol] 0.0 10*3/uL Normal 0.0-0.45 [facility] Comment on above: Performed By: #### C BC, CREAT, GLU, LYTES, AST, ETOH, BARB, LIPASE, CK, BUN ####[address] Eosinophils/100 WBC (Bld) 0.2 % Normal . [facility] Comment on above: Performed By: #### C BC, CREAT, GLU, LYTES, AST, ETOH, BARB, LIPASE, CK, BUN ####[address] Erythrocyte distribution width (RBC) [Ratio] 14.4 % Normal 11.9-15.3 [facility] Comment on above: Performed By: #### C BC, CREAT, GLU, LYTES, AST, ETOH, BARB, LIPASE, CK, BUN ####[address] Hematocrit (Bld) [Volume fraction] 36.2 % Normal 34.0-46.4 [facility] Comment on above: Performed By: #### C BC, CREAT, GLU, LYTES, AST, ETOH, BARB, LIPASE, CK, BUN ####[address] Hemoglobin (Bld) [Mass/Vol] 11.9 g/dL Normal 11.8-15.4 [facility] Comment on above: Performed By: #### C BC, CREAT, GLU, LYTES, AST, ETOH, BARB, LIPASE, CK, BUN ####[address] Lymphocytes (Bld) [#/Vol] 2.2 10*3/uL Normal 1.00-4.8 [facility] Comment on above: Performed By: #### C BC, CREAT, GLU, LYTES, AST, ETOH, BARB, LIPASE, CK, BUN ####[address] Lymphocytes/100 WBC (Bld) 21.8 % Normal . [facility] Comment on above: Performed By: #### C BC, CREAT, GLU, LYTES, AST, ETOH, BARB, LIPASE, CK, BUN ####[address] MCH (RBC) [Entitic mass] 26.9 pg Normal 24.7-34.3 [facility] Comment on above: Performed By: #### C BC, CREAT, GLU, LYTES, AST, ETOH, BARB, LIPASE, CK, BUN ####[address] MCV (RBC) [Entitic vol] 82.1 fL Normal 80-100 [facility] Comment on above: Performed By: #### C BC, CREAT, GLU, LYTES, AST, ETOH, BARB, LIPASE, CK, BUN ####[address] Mean Corpuscular HGB Conc 32.8 g/dL Normal 32.0-35.0 [facility] Comment on above: Performed By: #### C BC, CREAT, GLU, LYTES, AST, ETOH, BARB, LIPASE, CK, BUN ####[address] Monocytes (Bld) [#/Vol] 0.8 10*3/uL Normal 0.0-0.8 [facility] Comment on above: Performed By: #### C BC, CREAT, GLU, LYTES, AST, ETOH, BARB, LIPASE, CK, BUN ####[address] Monocytes/100 WBC (Bld) 22.19 % High 0.00-20.00 [facility] Comment on above: Result Comment: For adults in ED, MDW > 20.0 may be associated with a higher risk of sepsis during the first 12 hrs of hospital admission Performed By: #### C BC, CREAT, GLU, LYTES, AST, ETOH, BARB, LIPASE, CK, BUN ####[address] Monocytes/100 WBC (Bld) 7.4 % Normal . [facility] Comment on above: Performed By: #### C BC, CREAT, GLU, LYTES, AST, ETOH, BARB, LIPASE, CK, BUN ####[address] Neutrophils (Bld) [#/Vol] 7.2 10*3/uL Normal 1.8-7.7 [facility] Comment on above: Performed By: #### C BC, CREAT, GLU, LYTES, AST, ETOH, BARB, LIPASE, CK, BUN ####[address] Neutrophils/100 WBC (Bld) 69.9 % Normal . [facility] Comment on above: Performed By: #### C BC, CREAT, GLU, LYTES, AST, ETOH, BARB, LIPASE, CK, BUN ####[address] NRBC% 0.1 /100{WBC} Normal 0-0.5 [facility] Comment on above: Performed By: #### C BC, CREAT, GLU, LYTES, AST, ETOH, BARB, LIPASE, CK, BUN ####[address] Platelet mean volume (Bld) [Entitic vol] 8.1 fL Normal 6.3-10.7 [facility] Comment on above: Performed By: #### C BC, CREAT, GLU, LYTES, AST, ETOH, BARB, LIPASE, CK, BUN ####[address] Platelets (Bld) [#/Vol] 223 10*3/uL Normal 150-450 [facility] Comment on above: Performed By: #### C BC, CREAT, GLU, LYTES, AST, ETOH, BARB, LIPASE, CK, BUN ####[address] RBC (Bld) [#/Vol] 4.42 10*6/uL Normal 3.60-5.00 [facility] Comment on above: Performed By: #### C BC, CREAT, GLU, LYTES, AST, ETOH, BARB, LIPASE, CK, BUN ####[address] WBC (Bld) [#/Vol] 10.3 10*3/uL Normal 3.8-11.6 [facility] Comment on above: Performed By: #### C BC, CREAT, GLU, LYTES, AST, ETOH, BARB, LIPASE, CK, BUN ####[place] [place] [id number] [facility] Creatine Kinaseon 12-19-2022 CK [Catalytic activity/Vol] 50 U/L Normal 30-223 [facility] Comment on above: Result Comment: PERF ORMED BY: [facility] [address] [place] [address] PATHOLOGIST ORIENTOR MALVIN MEDLEY M.D. Performed By: #### C BC, CREAT, GLU, LYTES, AST, ETOH, BARB, LIPASE, CK, BUN ####[place] [id number] [facility] Creatinineon 12-19-2022 Creatinine [Mass/Vol] 0.84 mg/dL Normal 0.60-1.20 [facility] Comment on above: Performed By: #### C BC, CREAT, GLU, LYTES, AST, ETOH, BARB, LIPASE, CK, BUN ####[facility] [place] [address] [place] Creatinine Clr Calc Pharmacy 98.76 [facility] Comment on above: Performed By: #### C BC, CREAT, GLU, LYTES, AST, ETOH, BARB, LIPASE, CK, BUN ####[facility] GFR/1.73 sq M.predicted MDRD (S/P/Bld) [Vol rate/Area] mL/min/{1.73_m2} [facility] Comment on above: Performed By: #### C BC, CREAT, GLU, LYTES, AST, ETOH, BARB, LIPASE, CK, BUN ####[facility] Dipstick and Microscopicon 0 12-19-2022 Appearance (U) Clear Normal Clear [facility] Comment on above: Order Comment: Name Collection Type:: Clean-Voided Midstream Performed By: #### U RDS, UHCG, CUU, ADDONUAPLUS #### [facility] [address] [place] [address] [place] Bacteria,Urine None Seen Normal None Seen [facility] Comment on above: Order Comment: Name Collection Type:: Clean-Voided Midstream Performed By: #### U RDS, UHCG, CUU, ADDONUAPLUS #### [facility] [address] [place] [address] [place] Bilirubin,Urine Negative Normal Negative [facility] Comment on above: Order Comment: Name Collection Type:: Clean-Voided Midstream Performed By: #### U RDS, UHCG, CUU, ADDONUAPLUS #### [facility] [address] [place] [address] [place] Color (U) Yellow Normal Yellow [facility] Comment on above: Order Comment: Name Collection Type:: Clean-Voided Midstream Performed By: #### U RDS, UHCG, CUU, ADDONUAPLUS #### [facility] [address] Glucose Ql (U) Normal Normal Normal [facility] Comment on above: Order Comment: Name Collection Type:: Clean-Voided Midstream Performed By: #### U RDS, UHCG, CUU, ADDONUAPLUS #### [facility] [address] [place] [address] [place] Hyaline Casts,Urine 0-8 Normal 0-8 [facility] Comment on above: Order Comment: Name Collection Type:: Clean-Voided Midstream Performed By: #### U RDS, UHCG, CUU, ADDONUAPLUS #### [facility] [address] [place] [address] Ketones Ql (U) 1+ High Negative [facility] Comment on above: Order Comment: Name Collection Type:: Clean-Voided Midstream Performed By: #### U RDS, UHCG, CUU, ADDONUAPLUS #### [facility] [address] [place] [address] Leukocyte esterase Test strip Ql (U) 2+ High Negative [facility] Comment on above: Order Comment: Name Collection Type:: Clean-Voided Midstream Performed By: #### U RDS, UHCG, CUU, ADDONUAPLUS #### [facility] [address] [place] [address] [place] Nitrite,Urine Negative Normal Negative [facility] Comment on above: Order Comment: Name Collection Type:: Clean-Voided Midstream Performed By: #### U RDS, UHCG, CUU, ADDONUAPLUS #### [facility] [address] [place] [address] [place] Occult Blood,Urine Negative Normal Negative [facility] Comment on above: Order Comment: Name Collection Type:: Clean-Voided Midstream Performed By: #### U RDS, UHCG, CUU, ADDONUAPLUS #### [facility] [address] [place] [address] [place] pH (U) 5.5 [pH] Normal 5.0-9.0 [facility] Comment on above: Order Comment: Name Collection Type:: Clean-Voided Midstream Performed By: #### U RDS, UHCG, CUU, ADDONUAPLUS #### [facility] [address] [place] [address] Protein,Urine Negative Normal Negative [facility] Comment on above: Order Comment: Name Collection Type:: Clean-Voided Midstream Performed By: #### U RDS, UHCG, CUU, ADDONUAPLUS #### [facility] [address] [place] [address] RBC,Urine 5-9 High 0-4 [facility] Comment on above: Order Comment: Name Collection Type:: Clean-Voided Midstream Performed By: #### U RDS, UHCG, CUU, ADDONUAPLUS #### [address] Specificy Spur,Urine 1.025 Normal 1.001-1.03 0 [facility] Comment on above: Order Comment: Name Collection Type:: Clean-Voided Midstream Performed By: #### U RDS, UHCG, CUU, ADDONUAPLUS #### [facility] [address] [place] [address] Squamous Epithelial Cell,Urine 3-4 High 0-2 [facility] Comment on above: Order Comment: Name Collection Type:: Clean-Voided Midstream Performed By: #### U RDS, UHCG, CUU, ADDONUAPLUS #### [facility] [address] [place] [address] Urobilinogen,Urine Normal Normal Normal [facility] Comment on above: Order Comment: Name Collection Type:: Clean-Voided Midstream Performed By: #### U RDS, UHCG, CUU, ADDONUAPLUS #### [facility] [address] [place] [address] [place] WBC,Urine 10-19 High 0-4 [facility] Comment on above: Order Comment: Name Collection Type:: Clean-Voided Midstream Performed By: #### U RDS, UHCG, CUU, ADDONUAPLUS #### [facility] [address] [place] [address] Drug Screen,Urineon 12-20-19 23 Amphetamine Screen,Urine Negative Normal Negative [facility] Comment on above: Performed By: #### U RDS, UHCG, CUU, ADDONUAPLUS #### [facility] [address] [place] [address] [place] Barbiturate Screen,Urine Negative Normal Negative [facility] Comment on above: Performed By: #### U RDS, UHCG, CUU, ADDONUAPLUS #### [facility] [address] [place] [address] [place] Benzodiazepines Screen,Urine Negative Normal Negative [facility] Comment on above: Performed By: #### U RDS, UHCG, CUU, ADDONUAPLUS #### [address] Cannabinoid Screen,Urine Positive High Negative [facility] Comment on above: Result Comment: Thes e are unconfirmed results and should not be used for legal purposes. Drug Cut-Off Concentration: AMPH 1000 ng/mL SEEMA 200 ng/mL LAZ 200 ng/mL COCM 300 ng/mL OP 300 ng/mL PCP 25 ng/mL THC 20 ng/mL PERFORMED BY: [place] [address] PATHOLOGIST ORIENTOR MALVIN MEDLEY M.D. Performed By: #### U RDS, UHCG, CUU, ADDONUAPLUS #### [place] [address] [place] Cocaine Screen,Urine Negative Normal Negative [facility] Comment on above: Performed By: #### U RDS, UHCG, CUU, ADDONUAPLUS #### [facility] [address] [place] [address] [place] Opiate Screen,Urine Negative Normal Negative [facility] Comment on above: Performed By: #### U RDS, UHCG, CUU, ADDONUAPLUS #### [place] [address] [place] Phencyclidine Screen,Urine Negative Normal Negative [facility] Comment on above: Performed By: #### U RDS, UHCG, CUU, ADDONUAPLUS #### [facility] [address] [place] [address] [place] ECG 12 lead ECGon 12-19-2022 ECG 12 lead ECG [facility] [address] [place] [address] Electrocardiograph Report Signed Patient: Zuleika Wyatt MR#: [id number] : 1990 Acct:[id number] Age/Sex: 32 / F ADM Date: 12/19/22 Loc: Room: [address] [place] [address] Type: DIS INOo Attending Dr: Arden Orozco [...] ECGs available Confirmed by OSCAR POE DO ([id number]) on 12/19/2022 10:18:39 PM Referred By: Electronically Signed By:OSCAR POE DO Transcribed By: MUS Signed By Oscar Poe DO 12/19 [facility] Electrolyteson 12-19-2022 Anion gap [Moles/Vol] 14.5 mmol/L Normal 6.0-15.0 [facility] Comment on above: Performed By: #### C BC, CREAT, GLU, LYTES, AST, ETOH, BARB, LIPASE, CK, BUN ####[facility] [id number] [place] [address] [place] Chloride [Moles/Vol] 105 mmol/L Normal 98-107 [facility] Comment on above: Performed By: #### C BC, CREAT, GLU, LYTES, AST, ETOH, BARB, LIPASE, CK, BUN ####[facility] [id number] [place] [address] [facility] CO2 [Moles/Vol] 20.0 mmol/L Low 21.0-31.0 [facility] Comment on above: Performed By: #### C BC, CREAT, GLU, LYTES, AST, ETOH, BARB, LIPASE, CK, BUN ####[place] [id number] Potassium [Moles/Vol] 3.5 mmol/L Normal 3.5-5.1 [facility] Comment on above: Performed By: #### C BC, CREAT, GLU, LYTES, AST, ETOH, BARB, LIPASE, CK, BUN ####[address] Sodium [Moles/Vol] 136 mmol/L Normal 136-145 [facility] Comment on above: Performed By: #### C BC, CREAT, GLU, LYTES, AST, ETOH, BARB, LIPASE, CK, BUN ####[place] [id number] [address] Ethyl Alcohol Profileon Ethanol [Mass/Vol] mg/dL Normal [facility] Comment on above: Performed By: #### C BC, CREAT, GLU, LYTES, AST, ETOH, BARB, LIPASE, CK, BUN ####[address] Percent Ethanol Not performed Normal [facility] Comment on above: Result Comment: PERF ORMED BY: [facility] [address] [place] [address] PATHOLOGIST ORIENTOR MALVIN MEDLEY M.D. Performed By: #### C BC, CREAT, GLU, LYTES, AST, ETOH, BARB, LIPASE, CK, BUN ####[place] [id number] [facility] Glucoseon 12-19-2022 Glucose [Mass/Vol] 93 mg/dL Normal 70-100 [facility] Comment on above: Result Comment: [place] Glucose Reference Range is dependent on time and content of last meal. Glucose of more than 200 mg/dL in a nonstressed, ambulatory subject supports the diagnosis of Diabetes Mellitus. ADA recommended reference range Performed By: #### C BC, CREAT, GLU, LYTES, AST, ETOH, BARB, LIPASE, CK, BUN ####[facility] [id number] HCG ( test) IAizai d Ql (U)Ordered By: Oscar Poe on 12-19-2022 HCG ( test) Ql (U) Negative [facility] HCG,Qualitative Serumon 07-0 HCG,Qualitative Serum Negative Normal [facility] Comment on above: Result Comment: PERF ORMED BY: [place] [address] PATHOLOGIST ORIENTOR MALVIN MEDLEY M.D. Performed By: #### H CGQUAL #### [facility] [address] [place] [address] HCG,Urineon 12-19-2022 Beta HCG ( test) Ql (U) Negative Normal [facility] Comment on above: Order Comment: Name Collection Type:: Clean-Voided Midstream Result Comment: PERF ORMED BY: [place] [address] PATHOLOGIST ORIENTOR MALVIN MEDLEY M.D. Performed By: #### U RDS, UHCG, CUU, ADDONUAPLUS #### [facility] [address] [place] [address] Ketones Auto test strip (U) [Mass/Vol]Ordered By: Oscar Poe on 12-19-2022 Ketones (U) [Mass/Vol] 1+ Negative [facility] - UrinalysisOrder ed By: Oscar Poe on 12-19-2022 Hyaline casts LM Ql (Urine sed) 0-8 [LPF] 0-8 [facility] Lipaseon 12-19-2022 Lipase [Catalytic activity/Vol] 29.0 U/L Normal 11.0-82.0 [facility] Comment on above: Result Comment: PERF ORMED BY: [place] [address] PATHOLOGIST ORIENTOR MALVIN MEDLEY M.D. Performed By: #### C BC, CREAT, GLU, LYTES, AST, ETOH, BARB, LIPASE, CK, BUN ####[facility] [id number] Nitrite Test strip Ql (U)Ord ered By: Oscar Poe on 12-19-2022 Nitrite Ql (U) Negative Negative [facility] Opiates [Presence] in Urine by Screen methodOrdered By: Oscar Poe on 12-19-2022 Opiates Screen Ql (U) Negative Negative [facility] Phencyclidine Screen Ql (U)O rdered By: Oscar Poe on 12-19-2022 Phencyclidine Ql (U) Negative Negative [facility] Protein Auto test strip (U) [Mass/Vol]Ordered By: Oscar Poe on 12-19-2022 Protein (U) [Mass/Vol] Negative Negative [facility] Specific gravity Auto test s trip (U) [Rel density]Ordered By: Oscar Poe on 12-19-2022 Specific gravity (U) [Rel density] 1.025 1.001-1.03 0 [facility] Squamous epithelial cells de tection in urine sediment by light microscopyOrdered By: Oscar Poe on 12-19-2022 Epithelial cells.squamous LM Ql (Urine sed) 3-4 [HPF] 0-2 [facility] Type and Screenon 12-19-2022 ABO and Rh group Nom (Bld) Blood group A Rh(D) positive [facility] Comment on above: Result Comment: PERF ORMED BY: [facility] [address] [place] [id number] PATHOLOGIST ORIENTOR MALVIN MEDLEY M.D. Urine Cultureon 12-19-2022 Bacteria identified Cx Nom (U) >100,000 colonies/ml mixed bacterial skin contaminants 2 Days PERFORMED BY: [facility] [address] [place] [id number] PATHOLOGIST ORIENTOR MALVIN MEDLEY M.D. [facility] Comment on above: Performed By: #### U RDS, UHCG, CUU, ADDONUAPLUS ####[place] [id number] [place] [id number] [facility] Urine bacteria detection by automated methodOrdered By: Oscar Poe on 12-19-2022 Bacteria Auto Ql (U) None seen None Seen [facility] Urine clarity by refractomet ry automatedOrdered By: Oscar Poe on 12-19-2022 Clarity Refractometry automated (U) Clear Clear [facility] Urine culture routineOrdered By: Oscar Poe on 12-19-2022 Bacteria identified Cx Nom (U) 2 Days [facility] Urine glucose measurement by automated test strip (mass/volume)Ordered By: Oscar Poe on 12-19-2022 Glucose Auto test strip (U) [Mass/Vol] Normal mg/dL Normal [facility] Urine hemoglobin detection b y automated test stripOrdered By: Oscar Poe on 12-19-2022 Hemoglobin Auto test strip Ql (U) Negative Negative [facility] Urine leukocyte esterase det ection by automated test stripOrdered By: Oscar Poe on 12-19-2022 Leukocyte esterase Auto test strip Ql (U) 2+ Negative [facility] Urobilinogen Auto test strip (U) [Mass/Vol]Ordered By: Oscar Poe on 12-19-2022 Urobilinogen (U) [Mass/Vol] Normal mg/dL Normal [facility] XR knee BI 2Von 12-19-2022 XR knee BI 2V [place] [address] XRay Report Signed Patient: Zuleika Wyatt MR#: [id number] : 1990 Acct:[id number] Age/Sex: 32 / F ADM Date: 12/19/22 Loc: Room: [address] [place] [address] Type: ADM INOo Attending Dr: Arden Orozco DO Copies to: DO Arden Jefferson DO Ordering Provider: Oscar Poe DO Date of Service: 12/18/22 XR/XR knee BI 2V: f ([id number]) XR/XR chest 1V portable: TRAUMATIC INJURY ([id number]) XR/XR pelvis 1-2V: f ([id number]) XR/XR foot LT 2V: f CLINICAL DATA: [...] Adela Mahan M.D.12/19/2022 10:41 AM Dictation Location: [place] [address] Transcribed By: [facility] 12/19/22 1041 Dictated By: Adela Mahan MD 12/19/22 1036 Signed By: 12/19/22 1041 Normal [facility] pH Auto test strip (U)Ordere d By: Oscar Poe on 12-19-2022 pH (U) 5.5 [pH] 5.0-9.0 [facility] Amylase [Enzymatic activity/ volume] in Serum or PlasmaOrdered By: Oscar Poe on 12-18-2022 Amylase [Catalytic activity/Vol] 35 U/L 29-103 [facility] Aspartate aminotransferase [ Enzymatic activity/volume] in Serum or PlasmaOrdered By: Oscar Poe on 12-18-2022 AST [Catalytic activity/Vol] 26 U/L 13-39 [facility] Basophils Auto (Bld) [#/Vol] Ordered By: Oscar Poe on 12-18-2022 Basophils (Bld) [#/Vol] 0.1 10*3/uL 0.0-0.2 [facility] Basophils/100 WBC Auto (Bld) Ordered By: Oscar Poe on 12-18-2022 Basophils/100 WBC (Bld) 0.7 % . [facility] Carbon dioxide, total [Moles /volume] in Serum or PlasmaOrdered By: Oscar Poe on 12-18-2022 CO2 [Moles/Vol] 20.0 mmol/L 21.0-31.0 [facility] Chloride [Moles/volume] in S gwendolyn or PlasmaOrdered By: Oscar Poe on 12-18-2022 Chloride [Moles/Vol] 105 mmol/L 98-107 [facility] Choriogonadotropin.beta subu nit [Units/volume] in Serum or PlasmaOrdered By: Oscar Poe on 12-18-2022 HCG.beta subunit Qn Negative [facility] Creatine kinase [Enzymatic a ctivity/volume] in Serum or PlasmaOrdered By: Oscar Poe on 12-18-2022 CK [Catalytic activity/Vol] 50 U/L 30-223 [facility] Creatinine [Mass/volume] in Serum or PlasmaOrdered By: Oscar Poe on 12-18-2022 Creatinine [Mass/Vol] 0.84 mg/dL 0.60-1.20 [facility] Eosinophils Auto (Bld) [#/Vo l]Ordered By: Oscar Poe on 12-18-2022 Eosinophils (Bld) [#/Vol] 0.0 10*3/uL 0.0-0.45 [facility] Eosinophils/100 WBC Auto (Bl d)Ordered By: Oscar Poe on 12-18-2022 Eosinophils/100 WBC (Bld) 0.2 % . [facility] Erythrocyte distribution wid th Auto (RBC) [Ratio]Ordered By: Oscar Poe on 12-18-2022 Erythrocyte distribution width (RBC) [Ratio] 14.4 % 11.9-15.3 [facility] Ethanol [Mass/volume] in Ser um or PlasmaOrdered By: Oscar Poe on 12-18-2022 Ethanol [Mass/Vol] mg/dL [facility] Ethanol [Mass/Vol] TNP [facility] Comment on above: Test not performed Glucose [Mass/volume] in Ser um or PlasmaOrdered By: Oscar Poe on 12-18-2022 Glucose [Mass/Vol] 93 mg/dL 70-100 [facility] Comment on above: ADA recommended refe rence rangeRandom Glucose Reference Range is dependent on time and content of last meal. Glucose of more than 200 mg/dL in a nonstressed, ambulatory subject supports the diagnosis of Diabetes Mellitus. Hematocrit Auto (Bld) [Volum e fraction]Ordered By: Oscar Poe on 12-18-2022 Hematocrit (Bld) [Volume fraction] 36.2 % 34.0-46.4 [facility] Hemoglobin [Mass/volume] in BloodOrdered By: Oscar Poe on 12-18-2022 Hemoglobin (Bld) [Mass/Vol] 11.9 g/dL 11.8-15.4 [facility] Leukocytes [#/volume] correc osmel for nucleated erythrocytes in Blood by Automated counOrdered By: Oscar Poe on 12-18-2022 WBC corrected for nucl RBC Auto (Bld) [#/Vol] 10.3 10*3/uL 3.8-11.6 [facility] Lipase [Enzymatic activity/v olume] in Serum or PlasmaOrdered By: Oscar Poe on 12-18-2022 Lipase [Catalytic activity/Vol] 29.0 U/L 11.0-82.0 [facility] Lymphocytes Auto (Bld) [#/Vo l]Ordered By: Oscar Poe on 12-18-2022 Lymphocytes (Bld) [#/Vol] 2.2 10*3/uL 1.00-4.8 [facility] Lymphocytes/100 WBC Auto (Bl d)Ordered By: Oscar Poe on 12-18-2022 Lymphocytes/100 WBC (Bld) 21.8 % . [facility] MCH Auto (RBC) [Entitic mass ]Ordered By: Oscar Poe on 12-18-2022 MCH (RBC) [Entitic mass] 26.9 pg 24.7-34.3 [facility] MCHC Auto (RBC) [Mass/Vol]Or dered By: Oscar Poe on 12-18-2022 MCHC (RBC) [Mass/Vol] 32.8 g/dL 32.0-35.0 [facility] MCV Auto (RBC) [Entitic vol] Ordered By: Oscar Poe on 12-18-2022 MCV (RBC) [Entitic vol] 82.1 fL 80-100 [facility] Monocyte distribution width [Entitic volume] in Blood by AutomatedOrdered By: Oscar Poe on 12-18-2022 Monocyte distribution width Auto (Bld) [Entitic vol] 22.19 % 0.00-20.00 [facility] Comment on above: For adults in ED, MD W > 20.0 may be associated with a higher risk of sepsis during the first 12 hrs of hospital admission Monocytes Auto (Bld) [#/Vol] Ordered By: Oscar Poe on 12-18-2022 Monocytes (Bld) [#/Vol] 0.8 10*3/uL 0.0-0.8 [facility] Monocytes/100 WBC Auto (Bld) Ordered By: Oscar Poe on 12-18-2022 Monocytes/100 WBC (Bld) 7.4 % . [facility] Neutrophils Auto (Bld) [#/Vo l]Ordered By: Oscar Poe on 12-18-2022 Neutrophils (Bld) [#/Vol] 7.2 10*3/uL 1.8-7.7 [facility] Neutrophils/100 WBC Auto (Bl d)Ordered By: Oscar Poe on 12-18-2022 Neutrophils/100 WBC (Bld) 69.9 % . [facility] No Panel InformationOrdered By: Oscar Poe on 12-18-2022 Estimated GFR (CKD-EPI) > 60.0 mL/Min [facility] Creatinine Clearance (Chem 98.76 [facility] Nucleated erythrocytes [Pres ence] in Blood by Automated countOrdered By: Oscar Poe on 12-18-2022 Nucleated RBC Auto Ql (Bld) 0.1 /100{WBC} 0-0.5 [facility] Platelet mean volume Auto (B ld) [Entitic vol]Ordered By: Oscar Poe on 12-18-2022 Platelet mean volume (Bld) [Entitic vol] 8.1 fL 6.3-10.7 [facility] Platelets Auto (Bld) [#/Vol] Ordered By: Oscar Poe on 12-18-2022 Platelets (Bld) [#/Vol] 223 10*3/uL 150-450 [facility] Potassium [Moles/volume] in Serum or PlasmaOrdered By: Oscar Poe on 12-18-2022 Potassium [Moles/Vol] 3.5 mmol/L 3.5-5.1 [facility] RBC Auto (Bld) [#/Vol]Ordere d By: Oscar Poe on 12-18-2022 RBC (Bld) [#/Vol] 4.42 10*6/uL 3.60-5.00 [facility] Serum or plasma anion gap de terminationOrdered By: Oscar Poe on 12-18-2022 Anion gap [Moles/Vol] 14.5 mmol/L 6.0-15.0 [facility] Sodium [Moles/volume] in Ser um or PlasmaOrdered By: Oscar Poe on 12-18-2022 Sodium [Moles/Vol] 136 mmol/L 136-145 [facility] Urea nitrogen [Mass/volume] in Serum or PlasmaOrdered By: Oscar Poe on 12-18-2022 Urea nitrogen [Mass/Vol] 21 mg/dL 7-25 [facility] WBC Auto (Bld) [#/Vol]Ordere d By: Oscar Poe on 12-18-2022 WBC (Bld) [#/Vol] 10.3 10*3/uL 3.8-11.6 [facility] PRBC LEUKOREDUCEDon 07-14-19 23 ABO and Rh group Nom (Bld) Cross Match Result Compatible Unit Blood Type A Pos Unit Number [id number] Status Information Released Specimen Exp Date Product ID Red Blood Cells Product Code [id number] Cross Match Result Compatible Unit Blood Type A Pos Unit Number [id number] Status Information Transfused Product ID Red Blood Cells Product Code [id number] Normal [facility] Comment on above: Performed By: #### R UBIGG #### [facility] [address] [place] [address] Dr. Juan Antonio Ibarra CBC AUTO DIFFon 07-07-2022 BASO # 0.0 103/ul Normal 0.0-0.[address] [facility] [place] [facility] Comment on above: Performed By: #### A 1C #### [facility] [address] [place] [address] Dr. Juan Antonio Ibarra Basophils/100 WBC (Bld) 0.3 % Normal 0.2-2.[address] [facility] [place] [facility] Comment on above: Performed By: #### A 1C #### [facility] [address] [place] [address] Dr. Juan Antonio Ibarra EO # 0.1 103/ul Normal 0.0-0.7 [facility] Comment on above: Performed By: #### A 1C #### [facility] [address] [place] [address] Dr. Juan Antonio Ibarra Eosinophils/100 WBC (Bld) 0.9 % Normal 0.9-7.[address] [facility] Comment on above: Performed By: #### A 1C #### [facility] [address] [place] [address] Dr. Juan Antonio Ibarra Erythrocyte distribution width (RBC) [Ratio] 14.5 % Normal 11.0-15.[address] [facility] Comment on above: Performed By: #### A 1C #### [facility] [address] [place] [address] Dr. Juan Antonio Ibarra Hematocrit (Bld) [Volume fraction] 22.5 % Critically low 36.0-48.[address] [facility] Comment on above: Performed By: #### A 1C #### [facility] [address] [place] [address] Dr. Juan Antonio Ibarra Hemoglobin (Bld) [Mass/Vol] 7.9 g/dL Critically low 12.0-16.0 [facility] Comment on above: Performed By: #### A 1C #### [facility] [address] [place] [address] Dr. Juan Antonio Ibarra IG # 0.10 10e3/ul Critically high 0.00-0.[address] [facility] Comment on above: Performed By: #### A 1C #### [facility] [address] [place] [address] Dr. Juan Antonio Ibarra IG % 0.9 % Critically high 0.0-0.[address] [facility] Comment on above: Performed By: #### A 1C #### [facility] [address] [place] [address] Dr. Juan Antonio Ibarra LYMPH # 1.6 103/ul Normal 1.2-3.[address] [facility] Comment on above: Performed By: #### A 1C #### [facility] [address] [place] [address] Dr. Juan Antonio Ibarra Lymphocytes/100 WBC (Bld) 14.0 % Critically low 20.5-60.[address] [facility] Comment on above: Performed By: #### A 1C #### [facility] [address] [place] [address] Dr. Juan Antonio Ibarra MANUAL DIFF REQ NO Normal [facility] Comment on above: Performed By: #### A 1C #### [facility] [address] [place] [address] Dr. Juan Antonio Ibarra MCH (RBC) [Entitic mass] 26.4 pg Critically low 26.7-34.[address] [facility] Comment on above: Performed By: #### A 1C #### [facility] [address] [place] [address] Dr. Juan Antonio Ibarra MCHC (RBC) [Mass/Vol] 35.1 g/dL Normal 29.9-35.[address] [facility] Comment on above: Performed By: #### A 1C #### [facility] [address] [place] [address] Dr. Juan Antonio Ibarra MCV (RBC) [Entitic vol] 75.3 fL Critically low 81.0-99.[address] [facility] Comment on above: Performed By: #### A 1C #### [facility] [address] [place] [address] Dr. Juan Antonio Ibarra MONO # 0.7 103/ul Normal 0.3-0.8 [facility] Comment on above: Performed By: #### A 1C #### [facility] [address] [place] [address] Dr. Juan Antonio Ibarra Monocytes/100 WBC (Bld) 6.2 % Normal 1.7-12.[address] [facility] Comment on above: Performed By: #### A 1C #### [facility] [address] [place] [address] Dr. Juan Antonio Ibarra NEUT # 9.1 103/ul Critically high 1.4-6.[address] [facility] Comment on above: Performed By: #### A 1C #### [facility] [address] [place] [address] Dr. Juan Antonio Ibarra Neutrophils/100 WBC (Bld) 77.7 % Critically high 43.0-75.[address] [facility] Comment on above: Performed By: #### A 1C #### [facility] [address] [place] [address] Dr. Juan Antonio Ibarra Platelet mean volume (Bld) [Entitic vol] 9.2 fL Critically low 9.5-13.[address] [facility] Comment on above: Performed By: #### A 1C #### [facility] [address] [place] [address] Dr. Juan Antonio Ibarra PLT 143 103/ul Critically low 150-[address] [facility] Comment on above: Performed By: #### A 1C #### [facility] [address] [place] [address] Dr. Juan Antonio Ibarra RBC 2.99 106/ul Critically low 4.20-5.40 [facility] Comment on above: Performed By: #### A 1C #### [facility] [address] [place] [address] Dr. Juan Antonio Ibarra WBC 11.7 103/ul Critically high 4.0-11.[address] [facility] Comment on above: Performed By: #### A 1C #### [facility] [address] [place] [address] Dr. Juan Antonio Ibarra CBC AUTO DIFFon 07-06-2022 BASO # 0.0 103/ul Normal 0.0-0.[address] [facility] Comment on above: Performed By: #### A 1C #### [facility] [address] [place] [address] Dr. Juan Antonio Ibarra Basophils/100 WBC (Bld) 0.3 % Normal 0.2-2.[address] [facility] Comment on above: Performed By: #### A 1C #### [facility] [address] [place] [address] Dr. Juan Antonio Ibarra EO # 0.1 103/ul Normal 0.0-0.[address] [facility] Comment on above: Performed By: #### A 1C #### [facility] [address] [place] [address] Dr. Juan Antonio Ibarra Eosinophils/100 WBC (Bld) 0.8 % Critically low 0.9-7.[address] [facility] Comment on above: Performed By: #### A 1C #### [facility] [address] [place] [address] Dr. Juan Antonio Ibarra Erythrocyte distribution width (RBC) [Ratio] 14.3 % Normal 11.0-15.[address] [facility] Comment on above: Performed By: #### A 1C #### [facility] [address] [place] [address] Dr. Juan Antonio Ibarra Hematocrit (Bld) [Volume fraction] 23.0 % Critically low 36.0-48.[address] [facility] Comment on above: Performed By: #### A 1C #### [facility] [address] [place] [address] Dr. Juan Antonio Ibarra Hemoglobin (Bld) [Mass/Vol] 7.5 g/dL Critically low 12.0-16.[address] [facility] Comment on above: Performed By: #### A 1C #### [facility] [address] [place] [address] Dr. Juan Antonio Ibarra IG # 0.07 10e3/ul Critically high 0.00-0.[address] [facility] Comment on above: Performed By: #### A 1C #### [facility] [address] [place] [address] Dr. Juan Antonio Ibarra IG % 0.6 % Critically high 0.0-0.[address] [facility] Comment on above: Performed By: #### A 1C #### [facility] [address] [place] [address] Dr. Juan Antonio Ibarra LYMPH # 2.1 103/ul Normal 1.2-3.[address] [facility] Comment on above: Performed By: #### A 1C #### [facility] [address] [place] [address] Dr. Juan Antonio Ibarra Lymphocytes/100 WBC (Bld) 18.8 % Critically low 20.5-60.[address] [facility] Comment on above: Performed By: #### A 1C #### [facility] [address] [place] [address] Dr. Juan Antonio Ibarra MANUAL DIFF REQ NO Normal [facility] Comment on above: Performed By: #### A 1C #### [facility] [address] [place] [address] Dr. Juan Antonio Ibarra MCH (RBC) [Entitic mass] 26.0 pg Critically low 26.7-34.[address] [facility] Comment on above: Performed By: #### A 1C #### [facility] [address] [place] [address] Dr. Juan Antonio Ibarra MCHC (RBC) [Mass/Vol] 32.6 g/dL Normal 29.9-35.[address] [facility] Comment on above: Performed By: #### A 1C #### [facility] [address] [place] [address] Dr. Juan Antonio Ibarra MCV (RBC) [Entitic vol] 79.9 fL Critically low 81.0-99.[address] [facility] Comment on above: Performed By: #### A 1C #### [facility] [address] [place] [address] Dr. Juan Antonio Ibarra MONO # 0.7 103/ul Normal 0.3-0.[address] [facility] Comment on above: Performed By: #### A 1C #### [facility] [address] [place] [address] Dr. Juan Antoino Ibarra Monocytes/100 WBC (Bld) 6.6 % Normal 1.7-12.[address] [facility] Comment on above: Performed By: #### A 1C #### [facility] [address] [place] [address] Dr. Juan Antonio Ibarra NEUT # 8.2 103/ul Critically high 1.4-6.[address] [facility] Comment on above: Performed By: #### A 1C #### [facility] [address] [place] [address] Dr. Juan Antonio Ibarra Neutrophils/100 WBC (Bld) 72.9 % Normal 43.0-75.[address] [facility] Comment on above: Performed By: #### A 1C #### [facility] [address] [place] [address] Dr. Juan Antonio Ibarra Platelet mean volume (Bld) [Entitic vol] 9.8 fL Normal 9.5-13.[address] [facility] Comment on above: Performed By: #### A 1C #### [facility] [address] [place] [address] Dr. Juan Antonio Ibarra PLT 151 103/ul Normal 150-[address] [facility] Comment on above: Performed By: #### A 1C #### [facility] [address] [place] [address] Dr. Juan Antonio Ibarra RBC 2.88 106/ul Critically low 4.20-5.[address] [facility] Comment on above: Performed By: #### A 1C #### [facility] [address] [place] [address] Dr. Juan Antonio Ibarra WBC 11.3 103/ul Critically high 4.0-11.[address] [facility] Comment on above: Performed By: #### A 1C #### [facility] [address] [place] [address] Dr. Juan Antonio Ibarra CBC AUTO DIFFon 07-05-2022 BASO # 0.0 103/ul Normal 0.0-0.[address] [facility] Comment on above: Performed By: #### R PRQ #### [facility] [address] [place] [address] Dr. Juan Antonio Ibarra Basophils/100 WBC (Bld) 0.2 % Normal 0.2-2.[address] [facility] Comment on above: Performed By: #### R PRQ #### [facility] [address] [place] [address] Dr. Juan Antonio Ibarra EO # 0.0 103/ul Normal 0.0-0.7 [facility] Comment on above: Performed By: #### R PRQ #### [facility] [address] [place] [address] Dr. Juan Antonio Ibarra Eosinophils/100 WBC (Bld) 0.4 % Critically low 0.9-7.[address] [facility] Comment on above: Performed By: #### R PRQ #### [facility] [address] [place] [address] Dr. Juan Antonio Ibarra Erythrocyte distribution width (RBC) [Ratio] 14.2 % Normal 11.0-15.[address] [facility] Comment on above: Performed By: #### R PRQ #### [facility] [address] [place] [address] Dr. Juan Antonio Ibarra Hematocrit (Bld) [Volume fraction] 31.0 % Critically low 36.0-48.[address] [facility] Comment on above: Performed By: #### R PRQ #### [facility] [address] [place] [address] Dr. Juan Antonio Ibarra Hemoglobin (Bld) [Mass/Vol] 10.1 g/dL Critically low 12.0-16.[address] [facility] Comment on above: Performed By: #### R PRQ #### [facility] [address] [place] [address] Dr. Juan Antonio Ibarra IG # 0.10 10e3/ul Critically high 0.00-0.[address] [facility] Comment on above: Performed By: #### R PRQ #### [facility] [address] [place] [address] Dr. Juan Antonio Ibarra IG % 1.1 % Critically high 0.0-0.[address] [facility] Comment on above: Performed By: #### R PRQ #### [facility] [address] [place] [address] Dr. Juan Antonio Ibarra LYMPH # 1.6 103/ul Normal 1.2-3.[address] [facility] Comment on above: Performed By: #### R PRQ #### [facility] [address] [place] [address] Dr. Juan Antonio Ibarra Lymphocytes/100 WBC (Bld) 17.5 % Critically low 20.5-60.[address] [facility] Comment on above: Performed By: #### R PRQ #### [facility] [address] [place] [address] Dr. Juan Antonio Ibarra MANUAL DIFF REQ NO Normal [facility] Comment on above: Performed By: #### R PRQ #### [facility] [address] [place] [address] Dr. Juan Antonio Ibarra MCH (RBC) [Entitic mass] 25.8 pg Critically low 26.7-34.[address] [facility] Comment on above: Performed By: #### R PRQ #### [facility] [address] [place] [address] Dr. Juan Antonio Ibarra MCHC (RBC) [Mass/Vol] 32.6 g/dL Normal 29.9-35.[address] [facility] Comment on above: Performed By: #### R PRQ #### [facility] [address] [place] [address] Dr. Juan Antonio Ibarra MCV (RBC) [Entitic vol] 79.3 fL Critically low 81.0-99.[address] [facility] Comment on above: Performed By: #### R PRQ #### [facility] [address] [place] [address] Dr. Juan Antonio Ibarra MONO # 0.7 103/ul Normal 0.3-0.[address] [facility] Comment on above: Performed By: #### R PRQ #### [facility] [address] [place] [address] Dr. Juan Antonio Ibarra Monocytes/100 WBC (Bld) 8.1 % Normal 1.7-12.[address] [facility] Comment on above: Performed By: #### R PRQ #### [facility] [address] [place] [address] Dr. Juan Antonio Ibarra NEUT # 6.7 103/ul Critically high 1.4-6.[address] [facility] Comment on above: Performed By: #### R PRQ #### [facility] [address] [place] [address] Dr. Juan Antonio Ibarra Neutrophils/100 WBC (Bld) 72.7 % Normal 43.0-75.[address] [facility] Comment on above: Performed By: #### R PRQ #### [facility] [address] [place] [address] Dr. Juan Antonio Ibarra Platelet mean volume (Bld) [Entitic vol] 10.1 fL Normal 9.5-13.[address] [facility] Comment on above: Performed By: #### R PRQ #### [facility] [address] [place] [address] Dr. Juan Antonio Ibarra PLT 202 103/ul Normal 150-[address] [facility] Comment on above: Performed By: #### R PRQ #### [facility] [address] [place] [address] Dr. Juan Antonio Ibarra RBC 3.91 106/ul Critically low 4.20-5.[address] [facility] Comment on above: Performed By: #### R PRQ #### [facility] [address] [place] [address] Dr. Juan Antonio Ibarra WBC 9.2 103/ul Normal 4.0-11.[address] [facility] Comment on above: Performed By: #### R PRQ #### [facility] [address] [place] [address] Dr. Juan Antonio Ibarra DRUG SCREEN RAPID (URINE)on 07-05-2022 AMP Negative Normal NEGATIVE [facility] Comment on above: Performed By: #### A 1C #### [facility] [address] [place] [address] Dr. Juan Antonio Ibarra BAR Negative Normal NEGATIVE [facility] Comment on above: Performed By: #### A 1C #### [facility] [address] [place] [address] Dr. Juan Antonio Ibarra BUP Negative Normal NEGATIVE [facility] Comment on above: Performed By: #### A 1C #### [facility] [address] [place] [address] Dr. Juan Antonio Ibarra BZO Negative Normal NEGATIVE [facility] Comment on above: Performed By: #### A 1C #### [facility] [address] [place] [address] Dr. Juan Antonio Ibarra PARAM Negative Normal NEGATIVE [facility] Comment on above: Performed By: #### A 1C #### [facility] [address] [place] [address] Dr. Juan Antonio Ibarra CUT-OFFS SEE BELOW Normal [facility] Comment on above: Result Comment: AMP [...] ng/mL Performed By: #### A 1C #### [facility] [address] [place] [address] Dr. Juan Antonio Ibarra DRUG CUT HEADER DRUG CLASS TEST SYST EM CUT-OFF CONCENTRATIONS ARE FOLLOWS: Normal [facility] Comment on above: Performed By: #### A 1C #### [facility] [address] [place] [address] Dr. Juan Antonio Ibarra mAMP Negative Normal NEGATIVE [facility] Comment on above: Performed By: #### A 1C #### [facility] [address] [place] [address] Dr. Juan Antonio Ibarra MTD Negative Normal NEGATIVE [facility] Comment on above: Performed By: #### A 1C #### [facility] [address] [place] [address] Dr. Juan Antonio Ibarra OPI Negative Normal NEGATIVE [facility] Comment on above: Performed By: #### A 1C #### [facility] [address] [place] [address] Dr. Juan Antonio Ibarra OXY Negative Normal NEGATIVE [facility] Comment on above: Performed By: #### A 1C #### [facility] [address] [place] [address] Dr. Juan Antonio Ibarra PCP Negative Normal NEGATIVE [facility] Comment on above: Performed By: #### A 1C #### [facility] [address] [place] [address] Dr. Juan Antonio Ibarra PPX Negative Normal NEGATIVE [facility] Comment on above: Performed By: #### A 1C #### [facility] [address] [address] [address] Juan Antonio Ibarra TCA Negative Normal NEGATIVE [facility] Comment on above: Performed By: #### A 1C #### [facility] [address] [place] [address] Dr. Juan Antonio Ibarra THC Negative Normal NEGATIVE [facility] Comment on above: Performed By: #### A 1C #### [facility] [address] [place] [address] Dr. Juan Antonio Ibarra TYPE AND SCREENon 07-05-2022 TYPE AND SCREEN Negative Normal [facility] Comment on above: Performed By: #### T NS #### [facility] [address] [place] [address] Dr. Juan Antonio Ibarra US PREG BIOPHY [...] by: FELECIA GOLDMAN Date: 2022-06-28 15:[address] [facility] US PREG BIOPHY W NON STRESSo [...] FELECIA GOLDMAN Date: 2022-06-21 17:20 Normal [facility] US PREG GROWTHon 06-21-2022 US PREG GROWTH [...] GAMALIEL CRUMP Date: 2022-06-21 13:37 Normal [facility] CULTURE URINEon 06-16-2022 CULTURE URINE Culture Observations : LIGHT GROWTH OF MIXED GENITAL ALONSO. NO POTENTIAL PATHOGENS SEEN. Normal [facility] Comment on above: Performed By: #### U RCX #### [facility] [address] [place] [address] Dr. 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 Juan Antonio Ibarra Clarity (U) CLEAR Normal CLEAR [facility] Comment on above: Performed By: #### U MICRO, UACSIND #### [facility] [address] [address] [address] Juan Antonio Ibarra Color (U) LT. YELLOW Normal YELLOW [facility] Comment on above: Performed By: #### U MICRO, UACSIND #### [facility] [address] [address] [address] Juan Antonio Ibarra Glucose Ql (U) Negative Normal NEGATIVE [facility] Comment on above: Performed By: #### U MICRO, UACSIND #### [facility] [address] [address] [address] Juan Antonio Ibarra Hemoglobin Ql (U) Negative Normal NEGATIVE [facility] Comment on above: Performed By: #### U MICRO, UACSIND #### [facility] [address] [address] [address] Juan Antonio Ibarra Ketones Ql (U) Negative Normal NEGATIVE [facility] Comment on above: Performed By: #### U MICRO, UACSIND #### [facility] [address] [address] [address] Juan Antonio Ibarra LEUKOCYTES MODERATE Abnormal NEGATIVE [facility] Comment on above: Performed By: #### U MICRO, UACSIND #### [facility] [address] [address] [address] Juan Antonio Ibarra Nitrite Ql (U) Negative Normal NEGATIVE [facility] Comment on above: Performed By: #### U MICRO, UACSIND #### [facility] [address] [address] [address] Juan Antonio Ibarra pH (U) 6.0 [pH] Normal 5-9 [facility] Comment on above: Performed By: #### U MICRO, UACSIND #### [facility] [address] [address] [address] Juan Antonio Ibarra SPEC GRAVITY 1.020 Normal 1.005-<=1. [address] [facility] Comment on above: Performed By: #### U MICRO, UACSIND #### [facility] [address] [place] [address] Dr. Juan Antonio Ibarra UA PROTEIN Negative Normal NEGATIVE/ TRACE [facility] Comment on above: Performed By: #### U MICRO, UACSIND #### [facility] [address] [address] [address] Juan Antonio Ibarra UR MICRO IND INDICATED Normal [facility] Comment on above: Performed By: #### U MICRO, UACSIND #### [facility] [address] [address] [address] Juan Antonio Ibarra Urobilinogen Qn (U) 1.0 {Pamela'U}/dL Normal 0.2 - 1. 0 [facility] Comment on above: Performed By: #### U MICRO, UACSIND #### [facility] [address] [address] [address] Juan Antonio Ibarra URINE MICROSCOPIC ONLYon BACTERIA SMALL Abnormal NONE SEEN [facility] Comment on above: Performed By: #### U MICRO, UACSIND #### [facility] [address] [place] [address] Dr. Juan Antonio Ibarra Bacteria identified Cx Nom (U) INDICATED Normal [facility] Comment on above: Performed By: #### U MICRO, UACSIND #### [facility] [address] [place] [address] Dr. Juan Antonio Ibarra CAST NONE SEEN Normal NONE SEEN [facility] Comment on above: Performed By: #### U MICRO, UACSIND #### [facility] [address] [place] [address] Dr. Juan Antonio Ibarra Crystals LM Nom (Urine sed) NONE SEEN Normal NONE SEEN [facility] Comment on above: Performed By: #### U MICRO, UACSIND #### [facility] [address] [address] [address] Juan Antonio Ibarra Epithelial cells LM Ql (Urine sed) RARE Normal NONE SEEN /RARE [facility] Comment on above: Performed By: #### U MICRO, UACSIND #### [facility] [address] [place] [address] Dr. Juan Antonio Ibarra MUCOUS NONE SEEN Normal NONE SEEN [facility] Comment on above: Performed By: #### U MICRO, UACSIND #### [facility] [address] [place] [address] Dr. Juan Antonio Ibarra RBC NONE SEEN Abnormal 0-2 [facility] Comment on above: Performed By: #### U MICRO, UACSIND #### [facility] [address], [place] [address] Dr. Juan Antonio Ibarra WBC 2-5 Abnormal NONE SEEN [facility] Comment on above: Performed By: #### U MICRO, UACSIND #### [facility] [address] [place], [place] [address] Dr. Juan Antonio Ibarra GROUP B STREP CULTUREon 05-18 S. agalactiae Ag Ql (Unsp spec) Culture Observations: NEGATIVE FOR GROUP B STREPTOCOCCUS. Normal [facility] Comment on above: Performed By: #### G BSCX #### [facility] [address] [place] [address] Dr. Juan Antonio Ibarra US PREG BIOPHY [...] GAMALIEL CRUMP Date: 2022-06-14 16:10 Normal [facility] US PREG BIOPHY W NON STRESSo n [...] by: FELECIA GOLDMAN Date: 2022-06-07 16:[address] [facility] US PREG BIOPHY W NON STRESSo [...] by: FELECIA GOLDMAN Date: 2022-06-04 17:[address] [facility] US PREG BIOPHY W NON STRESS [...] by: FELECIA GOLDMAN Date: 2022-06-04 16:[address] [facility] US PREG BIOPHY W NON STRESSo [...] by: GAMALIEL CRUMP Date: 2022-05-31 18:[address] [facility] US PREG BIOPHY W NON STRESSo [...] FELECIA GOLDMAN Date: 2022-05-24 16:34 Normal [facility] US PREG GROWTHon 05-24-2022 US PREG GROWTH [...] FELECIA GOLDMAN Date: 2022-05-24 16:33 Normal [facility] GLUCOSE - 1HRon 04-04-2022 Glucose [Mass/Vol] 101 mg/dL Normal 74-106 [facility] Comment on above: Performed By: #### R PRQ #### [facility] [address] [place] [address] Dr. Juan Antonio Ibarra HEMOGRAM AND PLATELon 2021 Hematocrit (Bld) [Volume fraction] 33.5 % Critically low 36.0-48.[address] [facility] Comment on above: Performed By: #### A 1C #### [facility] [address] [place] [address] Dr. Juan Antonio Ibarra Hemoglobin (Bld) [Mass/Vol] 10.7 g/dL Critically low 12.0-16.[address] [facility] Comment on above: Performed By: #### A 1C #### [facility] [address] [place] [address] Dr. Juan Antonio Ibarra MCH (RBC) [Entitic mass] 29.3 pg Normal 26.7-34.[address] [facility] Comment on above: Performed By: #### A 1C #### [facility] [address] [place] [address] Dr. Juan Antonio Ibarra MCHC (RBC) [Mass/Vol] 31.9 g/dL Normal 29.9-35.2 [facility] Comment on above: Performed By: #### A 1C #### [facility] [address] [place] [address] Dr. Juan Antonio Ibarra MCV (RBC) [Entitic vol] 91.8 fL Normal 81.0-99.[address] [facility] Comment on above: Performed By: #### A 1C #### [facility] [address] [place] [address] Dr. Juan Antonio Ibarra PLT 179 103/ul Normal 150-450 [facility] Comment on above: Performed By: #### A 1C #### [facility] [address] [place] [address] Dr. Juan Antonio Ibarra RBC 3.65 106/ul Critically low 4.20-5.40 [facility] Comment on above: Performed By: #### A 1C #### [facility] [address] [place] [address] Dr. Juan Antonio Ibarra WBC 9.9 103/ul Normal 4.0-11.0 [facility] Comment on above: Performed By: #### A 1C #### [facility] [address] [place] [address] Dr. Juan Antonio Ibarra US PREG REEVAL [...] by: FELECIA GOLDMAN Date: 2022-03-20 20:[address] [facility] US PREG ANATOMY SINGLEon US PREG [...] by: FELECIA GOLDMAN Date: 2022-02-22 16:[address] [facility] Coding Summaryon 02-14-2022 Coding Summary HTMLBase 64 LxygwlouTIk1gSs+PGhlYWQ+PE 8XFWTaL90fxQCohW6LV1dIPV2A TGXKEZLWPA6KYJ3tiLB9RPlvA9 VybiAv RkrffHCqAK76YXo5MTV0zTreDH memV7gtWNcZ0t6TeFlWU65sJ26 GLkkREOyWzM2YcWnvxysdLGg L0cvZuUjxYOeIge+PHRhYmxlIH wtRGJwQTuiDIGzMfRssLddNQ3h Va4lSJAyTANmoXiryASjMwDa i9awSGXoLIqmUC2pvVeeT8WndI L1YJEgf3b4Ij82eOP+PHRkIHN0 mPelZXxzu045CjZcl3kjCOJ1 dGJfRLchHXQ6S12xk8T9WYNoVI QeFXI4fJC2oT3bgIvcjiyaG9Rp gXPaVdZ5UCS1aGQkjG7jzNew uuogrB9vEcz+F62LQQ9XTEXYZS 5XNvi5P6ZyAsmjlDP+XG05IBWf SV02pDIvpJUut9mzhXe3EsLk KAKrBAU1dOcjTMwzx3YqFQKoI0 0ccFOhs4Y2EQRayAjpcNAkMbHz eAE7pC4mUJsyjmpwt2abgbzp Tbsbk7kxhy83sP38R66gLHoqTK PxJVJ2DBIiQDJymCusso8ynC1w Ii8+VTlbw2ufa3pglXn6BbQy JRFsdoEobWplCOW2m1UtHc12B9 EzvWleq9IfWfx9ej17uNYno8Y8 oCQ6RGjnGCQazK0cFHhjDxK9 HKVoCmNqjR85nNJeONqsMs0uvF abhJjjKM1gORDmmlggLZJerS1v DBThcHIweXwrYW7uBWZgwuhr h204RgEqLVU2SWWmyBKaE1GztG 6iLbXnQASxTQShB7AaaQOwKMwz U227QLtmTuA8SFVlszDaY8Lm RJVsaUgsVjY9n1S9Cp7Gl9Jkqt qoKMG6YUuzLNR6ElIxYzOrJcC7 J8DdTga1BLCenRizTF4zK5Gn BLRizusphefoiBA4PYRwPTAhuT 28qHQeITnsQy0ra1S3p766TLHa ENRtdJ22Lc2toXchHXVjaPEZ zH7fohbbu9xjgfagZbMsAMCgRG x6FGs3VRTevRgxTwNxQAF2JvX6 HJM7gXGpnR6slXnsdtzhgG3n Oyc+U32rnF5sYVY2JMN2ompvOO LeoxRwNW54TN45K6XuIgwlzOJw bGU+RLAuaxWbfIyvNK8vQmIf o3gxw0ZcJWrtP1GmSBYrTEfjAp i7RPAcXKJ3jIM4qQ1sGYQxSMfs n6S3uTV9X4EaexOxyl6sn5dp YTJlHJmxU19gkIBzr4T4OZKyrU Q6IYFkgLvhZjMnzL81Hyd+PGNv bJvwd1WnFlcni4ews2wizCt5 QtOvIWArofRuwBhpWHX8u5PtCa 89J96kPUhlZIYqWOLoIMChYBKt oIhbit8rzK2hGw3+PGNvbCB3 hBX3qF0gDKBbXwA8UVcxI818Zm CmlFBuOhwvx3yhd8pnjNs2EfOt HKOpxoJikWloNNZ0b7SsOq23 M77eANutSCQqPJFxSPDeRQLkbK ljgi5bgM3zRx5+PP7tz8rist18 rN20gJU+TAPmBNW9bRxeZPvr ZCLwkO8cOPdjArR1GHQjCbJjqT 02eIBrAFssBu5qbOrtiJhzPN2r OVTxlnljq503OjWyk1zwIVGs kFNqGVybHJU0R74zg6Z2INSvOZ LkUHE0gFY9iG6nsBzttrfgjEDc qQvkwpWooBytAFhkHIwsK647 IHRvcDsnPlBhdGllbnQgTmFtZT d4Y9ChIlv3RKXlgRfuTD8mjIPk PYxpHo1ujKluxStvXT7zCIKe rulid040YrRpj3elYFBakIMrCL rxSJL2W92ly2Z7CMSgOCQjATW6 vXA1aH9myJxequekuZLviQjr gzHuzCzmTEsoYNtyJ391YNNivS yfFwSzhyGkQFNazHX1AB43HS60 lKFzv2G9mZD9I4MsDXWywxgq bfgrxRW5FJHbGEMuvZ37Tq8tuB kuBd0aBWOqYEA4IFSvfVEbC0Ah lW8fTrRkCCGoBZDfJ9TwnHYd GLngP855OAsbFmC0JTAgaiDbS8 TgCLKqcCsvZlU9l8N1Xi0ZN5G3 CK11PC66tRGku6X7uZC8Z0Tv GFUyyamuuwumtWA8RXEfBZHwqS 68Xj6anXhyXc5uDQWqPET8JNRi jYQwW4AqrM1kIuRpJHKfTHEl J1ErrNJgKJztK692MCsuFsV7VT TcrtYxD1MgCRApdVwoMxB9h8H4 Ao6SAYg6JW42WS68gDQez4V7 iTO7B5DdRSQugvnvydsrhGM8CR TxIZXedX99Zi2yiHteZi1kHTWe OBK3AOInaPZsP8ImqG4xKjZh HNZdRJRdP7GwrTCwLYwkQ357VE ysMcE7PCIrlrLeL9YwHVDdiDdz ScK2z0O3Qw6FSVOcJJ00UYJ3 rEI4DW12HS67X4HgKueeeXHutE U+PHRhYmxlIHdpZHRoPScxMDAl VrTwyQhhDR7lGs3kWSJmVEPf uHybmXVeVvLfl9fkLTLeTDauTX 4wcBftJ0YrlSP1UGCfw7c1Ic67 U28uT4IxpFQ+GRVckKY8iGD5 yR4rDiNxYhN0WTfcH501ZsSwcR FfNzooq6pif0smyMy9QpR9UMVi acZibCywRHQ8r6TiXk60N20d IHdpZHRoPSIxNSUiIHZhbGlnbj 9ecG9uMe8+FKHiaEV8yLK6zC6o ItDeMaF9CAhyV289AzMioTTs Bprcd2daw6guyFk7QwWvJJLgxn IbyWwiQPT8z1MmZs53C8BtqGgg r2SvSea6ip61hEJwv1E7nWP3 A3OwDNGcpfacpKFqnRvaDX1hZC BkujmjYQVtoE3mPFDmK1d4EgPz WtU8VSevU1XrhlT1DDOpvIGu TDqkUMY6B09ff8E1GHCbFDVkCL I2cHK6eG0lkLpoxlivmHQddJve qmNzaZeaCQjqZYpuW672RFTw yZymMTQfxJ0nKIMurXEwjCsxNY 4wNTBpbjsnPlNURUlOLCBWSVJH GO1ELUJWIJV0W9HvEky9CYUe vBoaXW5izNYgBIiiNv3weXlnaR usOD4wQLVubhexMBCzeK4zWLGd tCTcwSelQO5dPEZesjeqt868 ZqPcZMX1MFDasYMwA5EpvH7hPc VcHVJeADOkC5NpcVScBFhrE539 FGadVlZ0WIQzlrRwS0AfPULx eVpaGuL5l1O6Vi2zMP7kYJ5cAL ilWT49GL77eHBak6T7oCN6X1Zw DTGszszutiknvKA2ZROeVWCf dC42rDIxMRszUs6sq9G0c308GC LcDLDfnK11Ih2ikQkgTIIwxDEP tC4ddubjo9hctytrYjRnQBDr MNd5BCr8XJYulDrpVkSlLXG1An B7VZG7iMMwhL5daFzhkiztfW9e Oyc+OujrEPKeugO7V7ZnQbp2 PXTckUvmCA0ivQXcAJrmNm7vcD qibRogQS1hHOIcrmykJTObyK7e BQSgfTIlgOqzOZ7oRKFmmqjm p336TyRzULU3XVTthOFdG4SliB 5pUhRhCUYzADSnL5AwsPWmFDed Y260PIvtUsT9SBTwxxFgJ7Ob WZEtpOjgUmW9g2N4Li3IDI0VCR T4I5SwFwy7GGSthMmmAT0htDTn HFqeHa3mtJjttRcbSZ9yLTGe ecxlMAJvfE9mIHDpjSKpgOceNS 9xPJYajraux041SyXlRPS3TDTk tZCbL2WeoC8tLqGcAYWtLALv I2DwpRZgUVvcW306MHblCoB7RV NxmdKbA9MbVUTsaHoaApX2h2E6 At8DKHfizAX+GI26oo27B5Mb BywaMxd5EUOqHLH6pBH9nR9zPR RfFKqxr9A6yWP8D9AwquDhop1j m1xnJVFhGWapV12llUMtc0B0 MRWlpRJ5ZPCqiJqmVaNmlW46Ye c+PXWooXywy1TiKfzun8cpg3aq cCf6KiGyEBSmglZwaEzcDMT8 d3LlTz85G57gCEhlSCEhOIQcTF GwLGGrsFbzca3ofA2rSj4+PGNv fUR2tLC7cC6rVpEnVdQ3OFqs B782NwLfhGMdQxteh3bli3huhM q2SiWjJXDztdKjgDzwQTJ7q5Mf Fd79N2SxrDxbp0RwNzp6rj74 jMBla5H1hLO9M9ErQSNnsxtinA FcxEfiWU1uPJUgstqzFHWwwJ6p WPJzW9z6OvDkZcN2OPdwO1Yb jcD8BPLppUAbDWWzsCOWtN1ujj wge2qawmkxBsZtUQEjEQq4MOy0 LPTxqLvjUoShYXE5DeA1IXQ0 tFPlsO9amGzqqdrfsR5nJpy+UG e1n0fxbSJpME9qfDL9JI36DE63 rBXds5A3xGT9C8IeTJDkxozb yvztuIH8SHSxILCkmI99Ag0ybA amKe9bPXAdXQO7SSPudNKyM7Bc bJ6wNoFoETCsUCVcC4EsxVEr HHxrJ002EGwaWtS4GQMbfnQoK8 HbAXYxzIesGdY7r5L7Qr8XZK52 LH15XK03aYQuj9K4jQP1L3Zh JCChzvwpdnkfiOO1AKOpBPTfnW 80Uq4oaRgyYy3fEDRzHMA7PSYv vZEeM4XjjL1fYjSpDOSiJULl U2AjqGMbIUamY926CIffGyI1FT HdmkFwX7XqBKNryXhoJnJ1a8B9 Vj9ZWt72KS56KI93cNRdp4N4 kRO3P8KyWACelqsletmyoYE4TM HuXJVesY03Fb0toHdyQo9vCIYh OVV3CVUnvJEeO6FyzZ1mUnYt VWSzRPNhZ7XnwDEmJYbhG788RH kuBsL2FNBntxJgN1OaIVGsaFaw OwU6a4I6Yq2HWYvhtag9W1Ii PjwvdHI+VT83LCZlWG01bUIgqC Ydz7uqxBz1GfQkSNGzINE4dHcp BTjpt5KkLJCeN91cmDEwm6D1 IGN (more content not included)... [facility] Coding Summary HTMLBase 64 EcvaxcebYEy4eRx+PGhlYWQ+PE 2GPTGoU90qhGCsmH4EW2rMBC5N RXZZFCCWIZ8JUZ6fcRY7ROdwC7 VybiAv PkzomTMsDH23WKg1OTP3hEdpJF tyxP9zqZAlE7s9PnNsOH59jK12 ZArjBFHdSjW1MpLxxexepSJt H8bwQjWtfBWzXrr+PHRhYmxlIH lyNZSqGItjHOSuUaUuyPdpNA5x Qq9pMZLnNLWndPogaNOkFmRg c0qzMNTdGAurQN5lyEhnJ2WlrI X5ZXRsc9c3Cx90mRH+PHRkIHN0 tOykHTbmp902DxUyt6fuTHN2 jPHoYFazNRX4M18tw5W1CRCzHE AiXEW4tEY3xC4rgAwkruweH2Vp nGLbKzG8YWM2sBXifT8szWaf bersqQ1cFxw+E73ANT2WDVGEQF 3OEhz0E3FkGkcmbRQ+GH81HXSk VU49nRHnnXQwr5epnIy1QfXk DWSzSKJ9vQyzVAdjt4QlYUPzQ4 4lrQJxc6M0RCKpaZttuENeCvFu gHC6tY3fDUaaqwexp9grnqbe Iznfq9bhgk24tP42W04uGBkfEW IhSSZ5AQOjYLYecWchxg2lnJ7p Ii8+WEgwi1tdq9npjYj4UvSg HWEqpaYagKlqJLF5r1BdZl04R9 QcaYofg3MpDxk2ny76uGBlc4T0 tYJ5CIikDVGmrW0oYDlxQeH9 OZIbTgTjnS95cOPjRSpgNg1kvI astKwkWV1iBGUlgfbzTMSatG8c SFGyvGAmiOzyQT1kEEPjfemv l694XuQtPFY5OIBpkIRrO1SjjK 1aSiGzYRPxJFDcR1FzaRVtNRgr X710WUdtUgP5QSEaamQpO7Pz LUVwiCgePuF9h1Z2Az3Tr7Hwze jcEGY6RFcgLSY3NnSwYfJvTsO6 U3HqOzl2LKHcvDlySY6aM2Uy ACPsxpgiabcxfOM8FBRzOAItsO 84gXOqFZktBd6xv3D3f541JXTj ETJdxG55Fd6weFqrZOMalSSN wC7ufcwkl9hnkajeQeDpDBHgMK z6HMy9VJHgpZcfYrIiSPU0SbL8 KWG3iTAfhP9tiBqwqaproF4y Oyc+W90lhU1wHZJ0SZI9vlijUC EbgsZuCW32TK87R9PzIqsrpJXk bGU+IUQyxwAjzJtjXE2vUlEa e3wai0CmDAruQ6SbUGEoHWrnLn z8JABlKLL9rEF6cT6zIUJfMUxo e2U8fLD4L3TxrtKcss3mb5bj WWWhHDvwA15rzEGkb8R9OPGtgA B8QAJssDipCkUauH23Oxs+PGNv zTtgc5QvVrses0akz3utlLr5 XuRrHIYetvHxkZuvWXN5y8SuSx 72D31xCHuzGUKhBUGwOMQjOPSu dNrbtt7kvH3aEj4+PGNvbCB3 bDR3eS3nSYEcHbQ8OUbkT350Ws RgvWNwCzjou1ecm3rzrBq5ScZd YAPvpgIznGfgMEW7g5NpYt93 K83zXLzwPYSuKULiIFSrKOXiaE qrpl4gxF4tVw9+LX3yd7vsma01 oK52vGE+DJBzJAS1iQdcHSrj JVTamA2qIXdbQkY7UQMePvUdnZ 27bFPjSKrxWg4ukOxokAksJO4j IAFxuajef339NdRvb3wcTKXe qLMoBKjgOJR5C89wo4C5ZWGwJK BiJUD1xAX8bO5caQjvdeefnRYj tVxtglYeqKxgFJinBQlqX568 IHRvcDsnPlBhdGllbnQgTmFtZT y0K1UdXmj4PWMjrJzxMI6hiTHz XAzdIf6gpQaegEpuRP6aJVBp epkmu167TxSvw6faFOQfyOXuGW dhABT6A31jb7O3TWMbECFdMDY0 hLE4uR0woNmikinutPAdvMlu qbNwwMmqKZptUSeeD284PWVclF mvIeTsuhVeRUZtgTW8IQ88AQ29 gYLwf7W8jOS3E2RqFISkhlle hwzswPX9LLUeCYUuoO74Xq9wlZ tbJj0eNXGpJZV7AQOppSJsT2Eq yF7rEmHjSYVkUYXtA2NksEVm YBzwS803SUhtAlW0DCTlwtTcV0 HcXADkwLabNcM7a0H5Nk9EG6C1 UL25WK42kBXmy5B3zJG1X4Ox BGPpnqpjrvmvbZM2NXFiKMLsjS 23Sf2hqHfnOx9cBQQnZFP5QJXo xXSdJ7DfeZ2sYbApGZEuGLJn W2FblGScTVpvH112SUubEhU4IT DowdLnT3XwYMJauEjaBeL6r5A7 Bc4IFJd2DV35IZ57kNRzv9F2 aXA2P9WrWVOfjznzgkdvuOO5RH OtWKGviD56Wu6baJfeVo3kHRNd HMA8OZZlnGQtU8CnzM7vDqFc LLGqMMVcV6CquAIgKNrzZ209OO wjTyA1VABgpwQwW8RaOWGxeSks IsT7h6C5Zx7EPIRvQF95QAP4 xJG5VG64GA36F2KlIcromDPvpM U+PHRhYmxlIHdpZHRoPScxMDAl PiGizStjYW1aVv4pMYBlKDDv zCktfIUkLlAbj4kcVOHcRPdwGZ 4fyVvpK8FwlXD4GSNdz8h1Lu84 T68yK5MqeKC+SVDiaLB8yVP9 fU1fPzJwCtZ2RKdpX574PzRqzQ ZnVtqdf4sgi0phlYe7NwZ6XYDi llIjfIayCRQ5u5DcSq05F41i IHdpZHRoPSIxNSUiIHZhbGlnbj 4haQ0oFz5+SWQmxIR0gLS5gS5m AcIdSwZ4YUvfD574CpBgpZUf Vaxhp9aqj4jmyWj4TyEgYTOdov EafBgtHTV7a7HhWd74T1NgxYex i9VvQlp1yh88iIEmi5M5hTU5 S8WnPMJatkngcVTqqOawDG2gOF EgnznqMROnxA0qOUGzU8i5NhUr MuV4EEmeW1PgvmB2ELGwuMGn IFpbZVQ5Y18tn6I6NBRuFVFjUN I1tEV6nZ7ceAejxigyvPBsmMwu keKebZhiPXsoMNcuL715DBXd zFdlNDAueG7zICAdbHCskDdaQT 4wNTBpbjsnPlNURUlOLCBWSVJH FY2UXZUUXDE6W5RxEac8YXXv zFwsXK9naAVdFSovGe8syGftyN mxWZ5rTIUpnedhYWQlxG4pOWGx nLSuvIeqPT0bFPDyzhyzs994 PsScRQW3NKSzzUSzU0WydN8gSs HzWNXfAUYxB3PepEHlTSfmF977 QCzxIlC0FKZqrjRxD1UnMSRn jTpsGvZ0u7K1Kh6fXP4cZE7vKW grYP71CD59hWOqa5B5eBO4N3Dm LKObiwsbmgmnsYP7SCWgIYNb oC12wDOsOVirIr9rj6F8r942NW GiDLGreK70Zg0ozBslHTPjdJTQ bQ9qvihpo3yqfdlmEaZaRCKr LOh1WSh4QUVpnNwdZeNbFNF6Hp K0MMF9pKLjaL7gpRwhtxvuoY6h Oyc+SrccIIJgfnA2T7BcJwq1 OGCffFfgIS9mtUWdEVqzHa9xiV hsgJzcHQ5vXCKicdahSIAmbH3r FTYmrDBpgMvcEH7wMRDeussx w167TjTrQIV7NHOgjPUbX9SxpT 5iMjQiXCNkYIItJ0RhzXQbMTex T895KHbkPzR1DNHkwwHqY5Ee GDDqvJpkUaN4v4M9Yy4QGM1CMY S8Y0ZnUmq5UFLrsTmzKI0vzNSb IVwwWf2khAxcmEatIH6hYIIz mifwZGWmnV6pLINfiUHeoRllWO 1iILHzeysmc458VwAoHWG9XYNy rIHnW5EmkW6tRcNoLTZsDEOy D1YqmIYnARcgO182UQbdOkE3DA RcroWtD4RkFDOwqFvxWdZ1t0B3 Zt1LaPZxR6SeO9w5P4UwOurf dHI+UX95CWYuYO36uMXpzRWgq9 fjoGi7HlBzDUJiIJD0qWizBEkh g9IuLQYdM60xrNJll0K3JJFp zWzfuNOcXyVrfEZ7iJ0rKXuydb cln9dldgdxObrig2rdnm34nT39 X33xSLxtHQNxUXMiNCSpBEWk cRamno9doD5oJt9+LSMlfHP7jV F6uL0hJyMtBeV3EUbaJ784UvUu iYZoZrdhc0clo2biuFc9LhTl VIKwvjJwnBamUNF5x1BoEo24W2 9sIHdpZHRoPSIyMCUiIHZhbGln jt4liH3wVx6+CG9jb3tqql60 yJ49dIB+LUHhUXQ7tFolRMvyON DynT4qVTpwHnU4QHCzIiDcmE14 tZOoKCczAi2edWjlcBtyTS9w NTIzweahs352UjBlz2qxMPBnpJ UuCPlgSZR3M84ft2F8UQJxMREr UWX5jYH0zU4hvMhkbmsvgYGm eFdkulCrlJnkWSabEOfvJ627EW UttEzgWsBfrVDpD3pjukTKLC0y OjwvdGQ+FVGfAFT3oRgjKNie FEDtyR0vSOLuM2o9HxKjMhN8SB ajE7CldjV5WLUasJMiSGCttLQX jP4vaumal7cxkcimTjPlPGIg MXc9TAq6HAKxeMeeTlJjBTZ3Wg B0KOM8kFGcgI2wiKydqjwssK8v Oyc+RklOOjwvdGQ+PHRkIHN0 bFqfYExnLJSvgF4fZKKfL2y0Ma CgUsQ5FMhfX2BoppJ9GVKzvDIe RTQctBBKnP7nmmjsi8kqeypr GmTfXUViCIg1RPg4VNHstWmrYx LvFOA9YgM8XSF5yWSmiG9ikUmk ivzdrN7jCel+TVJOOjwvdGQ+ VCMfHAZ7mKgoPFdkRDYxgP5sLK BlP8g0QxMpDcV7JHjdQ5LeqwM3 JRTdrRLwGEEdpRYZpZ0cleyp s5twlgpzNnLpGEYoZYa7OTm7XF UrfWufMbRsVUG8GuI4EED8cYEa eJ2zvDyrfwljkI1nNym+UGF5 VIV5QJ90OM25O8OhZgtsgBAvmN U+PHRhYmxlIHdpZHRoPScxMDAl BePbnFxgOY6rQn1dYURfSDCc bGx (more content not included)... Normal [facility] CHLAMYDIA/GONOCOCCUS RAINER ( AB/URINE/PAPon 02-09-2022 Chlamydia trachomatis, RAINER Negative Normal Negative [facility] Comment on above: Performed By: #### R PRQ #### [facility] [address] [address] [address] Juan Antonio Ibarra Neisseria gonorrhoeae, RAINER Negative Normal Negative [facility] Comment on above: Performed By: #### R PRQ #### [facility] [address] [address] [address] Juan Antonio Ibarra AFP MATERNAL FOR SPINA BIFID Aon 02-08-2022 AFP MoM 1.41 Normal [facility] Comment on above: Performed By: #### A FPMAT #### [facility] [address] [address] [address] Juan Antonio Ibarra AFP Value 66.8 ng/mL Normal [facility] Comment on above: Performed By: #### A FPMAT #### [facility] [address] [address] [address] Juan Antonio Ibarra AFP, Serum for Spina Bifida Report Normal [facility] Comment on above: Performed By: #### A FPMAT #### [facility] [address] [address] [address] Juan Antonio Ibarra Comment Comment Normal [facility] Comment on above: Result Comment: Melchor Chaudhary, Ph.D., [facility] Director . References: Available Upon Request. . Multiples Of Median Cutoffs For AFP Elevations Briscoe 2.5 Black 2.8 IDD 2.0 Twins 4.5 Abbreviation Definitions IDD - Insulin Dep Diabetes OSBR - Open Spina Bifida Risk . For further inquiries contact [facility] at [phone]. . This test was developed and its performance characteristics determined by [facility]. It has not been cleared or approved by the Food and Drug Administration. Performed By: #### A FPMAT #### [facility] [address] [address] [address] Juan Antonio Ren Age Collection Date 18.3 weeks Normal [facility] Comment on above: Performed By: #### A FPMAT #### [facility] [address] [address] [address] Juan Antonio Ibarra Gestat, Age Based on LMP [facility] Comment on above: Result Comment: Reca lculations are not recommended when gestational dating by LMP and ultrasound are within 10 days. Performed By: #### A FPMAT #### [facility] [address] [place] [address] Dr. Juan Antonio Ibarra Insulin Dep Diabetes No Normal [facility] Comment on above: Performed By: #### A FPMAT #### [facility] [address] [place] [address] Dr. Juan Antonio Ibarra Interpretation Comment Normal [facility] Comment on above: Result Comment: Inte [...] Customer Services to discuss available options. The [employer] recommends amniocentesis be offered to women age 35 and older. Performed By: #### A FPMAT #### [facility] [address] [place] [address] Dr. Juan Antonio Ibarra [age] [address] [facility] Comment on above: Performed By: #### A FPMAT #### [facility] [address] [place] [address] Dr. Juan Antonio Ibarra Multiple Gestation No Normal [facility] Comment on above: Performed By: #### A FPMAT #### [facility] [address] [address] [address] Juan Antonio Ibarra OSBR Risk 1 IN [address] [facility] Comment on above: Performed By: #### A FPMAT #### [facility] [address] [address] [address] Juan Antonio Ibarra PDF . Normal [facility] Comment on above: Performed By: #### A FPMAT #### [facility] [address] [address] [address] Juan Antonio Ibarra Race Normal [facility] Comment on above: Performed By: #### A FPMAT #### [facility] [address] [place] [address] Dr. Juan Antonio Ibarra Test Results: Negative Normal [facility] Comment on above: Performed By: #### A FPMAT #### [facility] [address] [place] [address] Dr. Juan Antonio Ibarra VAGINITIS/VAGINOSIS DNA PROB Abdirashid 02-08-2022 Bettye species Negative Normal Negative [facility] Comment on above: Performed By: #### A 1C #### [facility] [address] [place] [address] Dr. Juan Antonio Ibarra Gardnerella vaginalis Negative Normal Negative [facility] Comment on above: Performed By: #### A 1C #### [facility] [address] [place] [address] Dr. Juan Antonio Ibarra Trichomonas vaginalis Negative Normal Negative [facility] Comment on above: Performed By: #### A 1C #### [facility] [address] [place] [address] Dr. Juan Antonio Ibarra ABO and Rh group post transf usion reaction Nom (Bld)Ordered By: Eleazar Hess on 02-06-2022 Microscopic observation Gram stain Nom (Unsp spec) [facility] ED Clinical Summaryon 2021 ED Clinical Summary [facility] Department [address] [place] [address] ED Clinical Summary PERSON INFORMATION Name: ZULEIKA WYATT Age: 31 Years Sex: FEMALE : 1990 MRN: Acct#: Visit Reason: Rash; Medical problem - minor; POSS BODY INFECTION Arrival: 01/29/2022 20:27:46 Discharge: 01/29/2022 21:17:00 LOS: 000 00:50 Check In: 01/29/2022 20:27:46 Checkout:01/29/2022 21:17:00 Address: [address] [place] [address] [facility] [address] PCP: Andie Stoddard PROVIDER INFORMATION Provider Role [...] follow-up with their family doctor or their POSTMASTER RELIEF doctor. To this they agreed.. Health Status [...] Current Fr (more content not included)... Normal [facility] ED Note - Physicianon 2021 [...] follow-up with their family doctor or their POSTMASTER RELIEF doctor. To this they agreed.. Health Status [...] 11/13/2021 Substance use: Current Type: Marijuana Comment: smokes week weekly but stopped 5 days [...] Once. Impression and Plan Diagnosis Sebaceous cyst ([id number] L72.3, Discharge, Medical) Plan Condition: Unchanged. Disposition: Discharged: time 01/29/2022 20:59:00. Prescriptions: Launch prescripti (more content not included)... Normal [facility] ED Patient Summaryon 022 ED Patient Summary [facility] - Emergency Department [address] [place] [address] PATIENT DISCHARGE INSTRUCTIONS Patient Information Name: ZULEIKA WYATT Age: 31 Years Date of : 1990 Reason For Visit: Rash; Medical problem - minor; POSS BODY INFECTION Arrival Time: 01/29/2022 20:27:46 Primary Care Physician: Andie Stoddard Attending Physician: Johnson Wright DO Comment: Visit Diagnosis: Diagnoses This Visit Medical problem - minor ([id number]) Rash ([id number]) Sebaceous cyst (L72.3) The Pharmacy at [facility] is open Saturday through Saturday [...] and/or drug addiction problems; contact the [facility] 07/01 Crisis Hotline -Text 4HYOP to 712076. If you received any narcotics, sedation, or [...] legal documents With: Address: When: Andie Wyatt [facility] [place] [address] Business (1) Within 3 to 5 days Comments: home warm compresses clindamycin for antibioitic see your ob, or Dr Wyatt, for recheck apt ----at some point, this might have to be removed; this is not cancer, but a retention cyst of fat material; Return if very red and tender, or fever, vomiting worse You are welcomed to return anytime. Call Dr Wright, ext [phone], if any question patric WRIGHT< ER PHYSICIAN< H [facility] Medication Information: The exam and treatment you received today in the [facility] Emergency Department were for an urgent problem and are not intended as complete care. It is important for you to follow up with a doctor, nurse practitioner, or physician?s assistant maintenance manager for ongoing care. If your symptoms [...] so we can reach you if necessary. [facility] Emergency Department has provided you with a complete list of medications post discharge. Please inform your cash register balancer/provider of your visit and for further instruction [...] Epidermoid Cyst (more content not included)... Normal [facility] TYPE AND SCREENon 12-30-2021 TYPE AND SCREEN Antibody Screen NEGA TIVE Blood Bank Notes performed by CV on 12/26/2021 ABO Rh Typing A Rh Positive Blood Bank Notes performed by CV on 12/26/[address] [facility] Comment on above: Performed By: #### R UBIGG #### [facility] [address] [place] [address] Dr. Juan Antonio Ibarra HEP B SURFACE ANTIGEN SCREEN on 12-28-2021 HBsAg Screen Negative Normal Negative [facility] Comment on above: Performed By: #### H BSANS #### [facility] [address] [address] [address] Juan Antonio Ibarra HEPATITIS C VIRUS AB W/ REFL EX QUANTon 12-28-2021 HCV AB 0.2 s/co ratio Normal 0.0-0.9 [facility] Comment on above: Performed By: #### A 1C #### [facility] [address] [place] [address] Dr. Juan Antonio Ibarra Interpretation: Comment Normal [facility] Comment on above: Result Comment: Nega tive Not infected with HCV, unless recent infection is suspected or other evidence exists to indicate HCV infection. Performed By: #### A 1C #### [facility] [address] [place] [address] Dr. Juan Antonio Ibarra HIV 1 AND 2 WITH REFLEXon HIV Screen 4th Generation wRfx Non-Reactive Normal Non Reactive [facility] Comment on above: Result Comment: HIV Negative HIV-1/HIV-2 antibodies and HIV-1 p24 antigen were NOT detected. There is no laboratory evidence of HIV infection. Performed By: #### R UBIGG #### [facility] [address] [place] [address] Dr. Juan Antonio Ibarra RPR QUANTon 12-28-2021 Rapid Plasma Reagin, Quant Non-Reactive Normal NonRea<1:[address] [facility] Comment on above: Result Comment: Plea se Note: This test does not meet current guidelines for screening and diagnosis of syphilis. This test is intended for following treatment response in patients being treated for syphilis infection. To screen for syphilis infection, a reflex cascade that includes both RPR and a treponema-specific assay should be utilized, such as Treponema pallidum (Syphilis) Screening [place] (571707) or Rapid Plasma Reagin (RPR) Test With Reflex to Quantitative RPR and Confirmatory Treponema pallidum Antibodies (550021). Performed By: #### R PRQ #### [facility] [address] [place] [address] Dr. Juan Antonio Ibarra RUBELLA AB IGGon 12-28-2021 Rubella Antibodies, IgG 3.48 index Normal Immune >0.99 [facility] Comment on above: Result Comment: Non- immune <0.90 Equivocal 0.90 - 0.99 Immune >0.99 Performed By: #### R UBIGG #### [facility] [address] [place] [address] Dr. Juan Antonio Ibarra CBC AUTO DIFFon 12-26-2021 BASO # 0.0 103/ul Normal 0.0-0.[address] [facility] Comment on above: Performed By: #### A 1C #### [facility] [address] [place] [address] Dr. Juan Antonio Ibarra Basophils/100 WBC (Bld) 0.3 % Normal 0.2-2.0 [facility] Comment on above: Performed By: #### A 1C #### [facility] [address] [place] [address] Dr. Juan Antonio Ibarra EO # 0.0 103/ul Normal 0.0-0.[address] [facility] Comment on above: Performed By: #### A 1C #### [facility] [address] [place] [address] Dr. Juan Antonio Ibarra Eosinophils/100 WBC (Bld) 0.4 % Critically low 0.9-7.[address] [facility] Comment on above: Performed By: #### A 1C #### [facility] [address] [place] [address] Dr. Juan Antonio Ibarra Erythrocyte distribution width (RBC) [Ratio] 13.5 % Normal 11.0-15.[address] [facility] Comment on above: Performed By: #### A 1C #### [facility] [address] [place] [address] Dr. Juan Antonio Ibarra Hematocrit (Bld) [Volume fraction] 38.9 % Normal 36.0-48.0 [facility] Comment on above: Performed By: #### A 1C #### [facility] [address] [place] [address] Dr. Juan Antonio Ibarra Hemoglobin (Bld) [Mass/Vol] 12.9 g/dL Normal 12.0-16.0 [facility] Comment on above: Performed By: #### A 1C #### [facility] [address] [place] [address] Dr. Juan Antonio Ibarra IG # 0.03 10e3/ul Normal 0.00-0.[address] [facility] Comment on above: Performed By: #### A 1C #### [facility] [address] [place] [address] Dr. Juan Antonio Ibarra IG % 0.3 % Normal 0.0-0.[address] [facility] Comment on above: Performed By: #### A 1C #### [facility] [address] [place] [address] Dr. Juan Antonio Ibarra LYMPH # 1.4 103/ul Normal 1.2-3.8 [facility] Comment on above: Performed By: #### A 1C #### [facility] [address] [place] [address] Dr. Juan Antonio Ibarra Lymphocytes/100 WBC (Bld) 14.5 % Critically low 20.5-60.[address] [facility] Comment on above: Performed By: #### A 1C #### [facility] [address] [place] [address] Dr. Juan Antonio Ibarra MANUAL DIFF REQ NO Normal [facility] Comment on above: Performed By: #### A 1C #### [facility] [address] [place] [address] Dr. Juan Antonio Ibarra MCH (RBC) [Entitic mass] 29.6 pg Normal 26.7-34.[address] [facility] Comment on above: Performed By: #### A 1C #### [facility] [address] [place] [address] Dr. Juan Antonio Ibarra MCHC (RBC) [Mass/Vol] 33.2 g/dL Normal 29.9-35.2 [facility] Comment on above: Performed By: #### A 1C #### [facility] [address] [place] [address] Dr. Juan Antonio Ibarra MCV (RBC) [Entitic vol] 89.2 fL Normal 81.0-99.[address] [facility] Comment on above: Performed By: #### A 1C #### [facility] [address] [place] [address] Dr. Juan Antonio Ibarra MONO # 0.5 103/ul Normal 0.3-0.[address] [facility] Comment on above: Performed By: #### A 1C #### [facility] [address] [place] [address] Dr. Juan Antonio Ibarra Monocytes/100 WBC (Bld) 4.6 % Normal 1.7-12.[address] [facility] Comment on above: Performed By: #### A 1C #### [facility] [address] [place] [address] Dr. Juan Antonio Ibarra NEUT # 7.7 103/ul Critically high 1.4-6.[address] [facility] Comment on above: Performed By: #### A 1C #### [facility] [address] [place] [address] Dr. Juan Antonio Ibarra Neutrophils/100 WBC (Bld) 79.9 % Critically high 43.0-75.[address] [facility] Comment on above: Performed By: #### A 1C #### [facility] [address] [place] [address] Dr. Juan Antonio Ibarra Platelet mean volume (Bld) [Entitic vol] 10.0 fL Normal 9.5-13.[address] [facility] Comment on above: Performed By: #### A 1C #### [facility] [address] [place] [address] Dr. Juan Antonio Ibarra PLT 194 103/ul Normal 150-450 [facility] Comment on above: Performed By: #### A 1C #### [facility] [address] [place] [address] Dr. Juan Antonio Ibarra RBC 4.36 106/ul Normal 4.20-5.40 [facility] Comment on above: Performed By: #### A 1C #### [facility] [address] [place] [address] Dr. Juan Antonio Ibarra WBC 9.7 103/ul Normal 4.0-11.0 [facility] Comment on above: Performed By: #### A 1C #### [facility] [address] [place] [address] Dr. Juan Antonio Ibarra CULTURE URINEon 12-26-2021 CULTURE URINE Culture Observations : LIGHT GROWTH OF MIXED GENITAL ALONSO. NO POTENTIAL PATHOGENS SEEN. Normal [facility] Comment on above: Performed By: #### R UBIGG #### [facility] [address] [address] [address] Juan Antonio Ibarra GLYCOHEMOGLOBIN A1Con 2021 ADA RECOMMENDATION SEE BELOW Normal [facility] Comment on above: Result Comment: ADA RECOMMENDED LIMIT 4.0 - 6.0 ADA THERAPEUTIC TARGET < 7.0 ACTION SUGGESTED > 7.0 Performed By: #### A 1C #### [facility] [address] [address] [address] Juan Antonio Ibarra Glucose [Mass/Vol] 114 mg/dL Normal [facility] Comment on above: Performed By: #### A 1C #### [facility] [address] [address] [address] Juan Antonio Ibarra HbA1c (Bld) [Mass fraction] 5.6 % Normal 4.5-6.[address] [facility] Comment on above: Performed By: #### A 1C #### [facility] [address] [address] [address] Juan Antonio Ibarra US PREG TVon [...] by: FELECIA GOLDMAN Date: 2021-12-07 16:[address] [facility] Coding Summaryon 11-21-2021 Coding Summary HTMLBase 64 IwimpoujTNx2iJx+PGhlYWQ+PE [id number] BWQJMJIQHE8BEY0bzPW0KEtyV4 VybiAv HkqueZXxGZ93GFa3CKI7oZjiGF oijJ1qrMBcE9z2GiIrJX31bU16 FAxyWRCzVeZ3ShHbuyugoBZt N8qvZlCrhOBhOgs+PHRhYmxlIH uyCJUjUKulCRMrRmEhoWkyAL4y Cr4dIAMeKABqaZjkdVKePkXm y4jmPCXgSWzvTC2blJlsF2QgqS E7PQGqs3u8Vi02uYZ+PHRkIHN0 eOkyWNrby252OqPfr7arYUY6 zEIwLGtsCMP6H62lm4U4RFVsZP LzBUP8cJC6gX1qmOxqfdhyH3Uk rORcChP4HPN6oWFzcP0yeTte pdbpzI2qKjo+L79NNG9GWKJVKX 4DIga0B6MoWirpjYE+BK02EYQz ZI33dKNfdDLlo4tpfBa5VdTp HWKjUNT8qNdaFPftk9OdWFFoW8 8hnMKzh3Y1ASIqbWezdXJpVfKp oEV5aQ6eSFjvdbpao1kzdlab Uiaxm9zxii10nP85G18rCCngRQ EyBRS3CVYkTFYkhFhaxa9kdJ7b Ii8+GEqyg4dba9cgaWt3LfSf IHGaawJvkNswAPM8d2KuMc97B4 WjpEwax2VoMfk3tw64yASxs2R8 fOD6KLexPJXtyS3fSUoyNuW7 WTChXbLtbC74lVSnNDbsJw2wmA xmeDytTE4sVMVzilacPHDyrO9y JNQyxZXwbHzcTJ7qEVJsvqsa k165EyPcFEJ5BQBiaRMbX0NzoD 7vEwAwGSNeXOVqO2LhyIRwNEcc A051PDirVwS0IGWqqaDlE6Hn YWWeeHgvKhC0z0J6Cb1Uf6Gixo ssGLO2NKyjGCM3TfV6ClRpXxR8 W9YhPfa5ZBVmzJnzJX0pY8Jn VPLnvgxtuhfrvYM9NMTePQQljJ 93zYSqHEnhEb7eu7L6g000XXDt RFJapW42Ft5orBiaUSYxzQUS nI2yjadqc9qldkwlSjSwOKAlFS x2PMf5XDAyaVcyWbIzQVD8AvC1 ONJ0bPWyoU8ddAjhkrenoD7y Oyc+I47jxI1yAVD8HRK2xpepEN TmbeJhOP76FC36D1ZzPtspkLTx bGU+BBYmooKzzLgxLX1gZjLu a1rud4IxKXmrC1DsZXMlURcgMe v5KBEgLGE8jBA3jH7qQZGdXFzq x0T7hKU7E3CljmTkga0tu1no DLRpCYewC57aeOGnp4G9JKTnrK K2OZGlnAukHbWdlE39Gky+PGNv nIpiu1VnUuenr9quk8hzfUv6 SpGkIGSadhPlgCazPWS1n6XsYb 61E83oETkpOKVaZYTrAGWqIKZy wNtxja6ooG5nTn1+PGNvbCB3 oDF5aT4bNCZfClV5GHyaA409Bb KohOOfEmhgv9sjm1pguMg2PuKz SXWgceGezBhwCQA4e1OyMt14 B63hRQvxYSZiMUGuJRBsFMFfdJ rmog1ykD0gZn7+TR4dz8gkpy34 sR72eXT+LAIfRIS1jVzbVZax EMJkeO0nWTiaMoV5XRPvTvFuyG 88iSQqBCdfTb0piVoycIspBK7l KUWkstpol512JxGif9psOHOr iZHhQQuaSSO6Y53bb4Q5VMNxLU ZeHSX9aYM5zM7wqIhncnnhqMUo bBzzbbKelYfeKLsvGAvwW884 IHRvcDsnPlBhdGllbnQgTmFtZT v5Y6JmGmg8FZVeiCtzAK6mgNHd SVlgCe6zdDxuiEqeIO0mQPCi kbodn784HxCrb2lnLOThhZOgME lmUYD8D13bm9Q5KZDrSREuUTI8 uMX7kF5ppFsvhqouuYWvcTrw yqOzfIaeYKpaAJofG832NRXkbW kkCsFibsQwHPHqpAZ4IY35JP23 uUFoi8R7fPW6L9DeEICejvtj nysvuTT4WXWzWYLezU13Pl7ouL uvOo5aSYSlBMA2NQMfqBFgB0Rg lP3fEcCcNDUwGPEsN8QqkJCo PAjpX216TOnyRlY9ACXnacSkL1 NdJCAdoHfcAqX2r7A4Yz4VJ3G1 GL46FR44lJIlt6X1aSS7A3Ll DRQmlpohrzxcmAE2GYHfZJDlqU 12Bu5enVmsMy7zZZCkGEW2FEPo cYFhO1AyqO2eQwXqGRBaFIIy J6DkxAAtDYqdJ489VZhuRyH2IJ VdrcOkA0DfFLAohOlnUeX5b8T6 Wc2ZDEy8RP28AM11xPYcc6V4 oMP4T1BbYXIzkvbcbtaitVH9MC GhHYDvmZ14Vj2qjNpbPh0gUHBq OYW7SAOrjQZrW0YdsK4mDbSx NOMwTSEzU9MmiBRbRJhjQ673UG rqIgE1GPFgsoJoS0PsGCUfvQuu ZoD6s7C1Rq0NUQNtYP86JRG7 nTG9KT45ZR03G3XlKyehdMHcpG U+PHRhYmxlIHdpZHRoPScxMDAl OwXhsTjvPY4bLt8iKBJfFBBq xOrtuNJoDwXcg0oaWSXaDQeeSP 6iwKhkI8DphGZ2FOPse0i2Vx80 R92jQ9EluPR+KPOuuYZ6aSH3 yC5mInZdJbQ0BMnqZ777VlAbeH XePzxup0phq0asgFa4OjY1BMZq rxSooBfsGRZ7j8WiRr10K21u IHdpZHRoPSIxNSUiIHZhbGlnbj 3xwE3yWh3+XQIqjHE3vDQ2nH7m MjDjWyX0IUfmP162ItQtvPHw Duxsa8upc1qlzQm5PzHoZYWldr CizJfgZVE2i7XkPi92K3TzlXnd d3UjFth8iu60mFHly3Z6jXN0 D3WdTOOnsqeedFRbpMkaML2pHP GklrlpHUAdzI3tBMJaV7k1UtIe CgW0PZcrS8TujhR4EOGvxCPj OTryFQX2J54py3C8NGZtXMAsXD R3aBV1wD6bbIqbekmjqVYhsSmj gdVxcEbmLKezHGlfP962XZMg eTwaHQQxrQ3kVOXyxJPvfHfpJG 4wNTBpbjsnPlNURUlOLCBWSVJH YO3DLYULSZT4G9BbYud2KQDy gMggAV5eaHEiKSoaXd2eoNjvgU dmEZ2qTVMthxgcQSWhqQ0hREVu mIQejZtkVF2vHWSrfabwh726 EgWgFUI6MLYktYOqV5WagZ5zCs SyLYLuIAQwB6LocWMaHVesV814 WWcjMmO9AAQukzAaC3YzBPOt yPhbLjH0s8J0Ju3tSW6uTZ4dPR fsFR46UI68mCSdf4I3tLW1T9Nz QJBqopxhafuteNK0RFFxKWQo wO82kBCqBCefXp4in1Z5h376VX XjHJWkqB46As1dsAdcAMTokUAO lH7xvidfc1niwfvjLpWpSRZq WYf2CQn1GEAgrLtlOtAgGBG9Eg C7JUL2iIJcxU8anIaxevlhlJ9w Oyc+QposOIPrqhN5T2WsDny5 CTHvxYjuRN8iwQRfSUqwFd3smT rldCbsDP6uJIBczfvxIVTubK5j XUNvgEUlfAchIR6wFONgkzyl s596CbZrWAT3XYPagFQhY0MthV 6eMuGeJAHlGIIaG3YrwOFbHFoc N124UWidNgU6AODtaoVhY6Mm NAIojWbzZgI3u1F7Yl9NQL8RWZ X7S7OgFkk0GWOwiTqoDY7khYHy UBkqIq8qdRgoeOwmIE1jFDPv nfqrFYUixX7oHYYzkDHprAlfYS 1nYVQijxbbt739FfCuGSE4NKRu wSSrI3OaeB3dKgAgINErOEHu S8WlhQTfWLapK755FRhyUtO2LH JzsoJoM4ZbPYAuqHdsPfC4y8L6 Zl8KVJeokOH+YT80bp53C7Cc KxveXkw9WNKuIJL1wAG7vG9kHV MwRAsai8L1yBU1J1RagtIgnm4n o0rjPMHsYGglY54nxBZkc9G3 UGGdjHY3GMBfsDtfFfNsdK48Jq c+YLZabYlwd1ZmEojup1ivv4zf xKz7HiAgNXVvohUurZxgEQR7 x8XjJu25N31sFIvyMSZeNMUyCY WkRRBvbUeond5uuI7oHs8+PGNv oVX7yFH5gM2aFuCfUrJ2LHys M774MxIdqVBoPlzxt9ghb7ttlC a5KdLoMSRuaqEzrGpuLAF9l5Bz Bq76Z2YnoAcev3DkMpr2ld36 nOItx1K2xYK4C0UuGAQirjnoyH OttNtaJU3uPYBydgynEEQapA2z GRZaW0j9JyAjEtJ6LEinM0Ul irC7BWRpmDJuGDAvtUNEuJ6ylt oum6zayxlaOuTrGLXtWIi0PJk5 KOGodZfkHhEjOOW1UtA4QNB8 kOGqgX4pcHtzxoiaeY2oUhk+UG d1p1cbvTIkCO6vbHZ5BX78HT77 wUFma6R5kOD4D9IlDMMwbmvu qjhqjPQ5XCGnRMAjuL30Su5bxL yrCl8xDFIjIDP3NAQscZPsZ6Cr iU5jKtMdGJIlHEWkM1KrfSEh PIuuD667AFmnLxP8OUSxquOrD5 TtBWUzyYkiDzX7x7D4Qq0NNV24 JT05IA89gOGkf5Q7dYC6B4Nd GYDcoferqhwfpNR3BQZvFSHhyZ 25Mm2igVgaTa6fYZQyHQP3LNZu iABrS9DlqP6rPkNbIARfBWBs M6GlsJYqPQzxD253NUwpBhR5SF YmxiDvP0YvMWGfuUfpTvC5y2K7 Zf7SEm58GE27IJ90cODnr8G9 lZE1M2EpRFPqrlmidkhdzSJ4VO XkHCBsyH30Eq5ksNjmAd8bOMEn YHB9NFTuaQViR8XraG4bTuWo UUZaWNGwP4LfmZRdOUlnV663OK fjWaB2QMAemaWiS9FqSWXsfOyv YlX8i8V6Ct3UOXrdquo6U4Ux PjwvdHI+PN64MHRpWC08wOCciQ Dch2dnaGp4TzVbVVGeCHT3xMrp ACjhb1QgYOQyG73wiMPab6K6 IGN (more content not included)... [facility] Coding Summary HTMLBase 64 GriwfzxhMDf2jXv+PGhlYWQ+PE 5SYYJiW19meJHveJ0ZH0oTUX7P EJYJHOXZXI9PZD4zwEZ0IMumQ4 VybiAv YpnodPJdMN36VKu9JWR5uLewKE gltH6zrLCgE9k6OrYnVN80cF71 NIiaEBUnHdO3UlAgtjvzvBWg C2pnVpNedOVjGyr+PHRhYmxlIH knKMBeEZtjEHZsTnDizKvnRA6j Iu6jBQNnKRIceTzzlPKtDsZa m7shAJVlNXetSD3mnDapE8OzvQ A8EVRon2m3Wk34rOS+PHRkIHN0 mCupFRfmh348FjMvi7sbJUC5 eLGbRFlfQSE4G62vg4G9IAGnTQ XmETL9hRL0bX0tfQznebniF2Bi nDAnNoR9CMT1pODemW6quBik eianhH7uYni+X04KRW1KOEHGFB 4RNep2O3PxYscaoOT+PH82IOAz EO95vZBqoVGfu4cysOv5LxKa LFAvWUI8mDbgHWujo1JtRHJbC0 8qvMCyt6V9JHThxDuxzKRlFwRo kKQ7sV4aUIrnsacuw8awwcls Xsrlu4tzty33lK82S71sTLtaSJ MqOSB9GZWiTXRvqUuwks0htU6c Ii8+TWngv6rkp8ttgLp8ZlNd EVKkcfAobVwbBYO3u5KdDv08B0 LbxEqty6OzUgb1ed37aGLtp5S2 sUW8LTboHCUnuN8iFNqqHvY3 QFRzFuNkwZ02nOEaRCheVd4gaQ rhtRxfNF5tNFOlpkhdZHBcoS6y NEPycBKthIabSE1bWCEukzoj q402CkGrNBK6JENwrRBrL8RsmK 8lOdXfODTcVPDgG8MpaPWbBVnk C367HEonGkO0IWOgerAwV3Cj VUQqhTfoAgT3m4H1Zx0Ko7Umzo bkXKF5YOyxNHA2IrL1NzIpGtX5 S2IjAtl4GOZgrPliIQ5tE7Or NWSixqjeyqzziLX6XRPfFCBsaZ 88tOTmZLzaEz4zc5A1b021LNTz DPLizV49Tm0lvRitNPPbkXPW yX6kwommr5woxvjfPmYkINUzDW y1CWs5JCHlkEtrNrOeDTB5GzV0 KCS4bXSzeU6ppWuobexcmG6l Oyc+Y22dkA6nOQO8ITF2rppbWD EmhtVjZJ88UU88Q6NbDildgFMo bGU+RMPbmrZswWlpBM2tFmDy c1oem0LjJJupM0TqRKLzMOgcTo t4WYBsETL1nJX0bT4gJQUuUZor g6L0tKD4E5AqbxNtbi7br0rw EOBhGIacQ90fyLTlu0E9RNFskI V9JFFviKhtOeCdnQ35Uhh+PGNv wTrzp7XqRqcbd9dim9draPa9 XqAfTJVyuxEupTarADN8i2DcDn 58X61vMAypLAPmKMFyBLRdVTGj nOqwrp0ksE1oBh6+PGNvbCB3 yZM8cQ2uUOTcQmT2KYzuL076Oz QhzGZcDupor3zwv6aaaVv9BnPt KBZcjfIwhFzwSXD5n1BsBn28 R47pTCsvXVNrXYOlRHPpLNUfkL mjwg5wxD6sQp9+CC7kx2uglv22 aX53eMM+VLIsVVQ8gRjySZwp XDMtoT2jGHguNlH7NSYqDiHdkZ 37gSKtCCkkYw8ipOwbfYmhAR4v JXGhzldna654MpSkr0ofJNCr kMJoSKeiCGO9M58fv2C5KGKhUX DsPMC4mZD2sB4gvWdpmygctMNg uDloefQavFgeIXcsNNxaY547 IHRvcDsnPlBhdGllbnQgTmFtZT v1C7QnNdk6WSBxiOpcJQ5thVYd XCyaQw5vxQraaFtcZX0tXEPy fhyzn657VwKos6fxNGIkdIFrVB vfOJC3Q80pa9Q1LRWiXDSvEKS3 bLD3qG8ueMvmyywfuTQbyQoh nxBmwQqkLEhyDBkoE473VLEwxN ciTeTvsaCrWIJkbYV2XW09HA84 fQRrt6B7oCX2O8QhAULvqndu niwfbSL8FHKeITWrwG77Hp4liC jcHg7zIDWiIIM9ROYmqCLmR4Cl mQ2hTiAbGRLsIGTdL6TcrQBx PXjrM105HQuxDiM7ZGZjnfFyH3 MtFOGhwPgnUpF5l7F9Pk9FZ4Y0 PM59ZK15xVDyr1K2kXO5B2Bs JUEtcfdkclbzpJL9IWFfOEQzlW 64Oy1htLboKx4kDPLeVOA1PRAh cKVrM7NxeB4oQxWmWOXxVCYa S3KqzXEfNAsgK939NZmiSlF8FY HtwcPlI1TlNDVtnJnbAhY8k9U8 Kc9OXIe8LS14YT92kKMzq8Z1 gFI8V6DcQRFbtzhzvpfgrFD0EA UtJPRheI61Lz5xuXroKq4pYBFo RFN4TMRvqPFhB8XgkD6lWjNh JPNbQLSfH0SjcBExBHqkD707PG pcKrT3DXNshvEsZ0WlTMIadWiv EyF5h3C3Ma0GWNFpRK77UOY8 gWG0PT24UW42Q6FkWirkqFIdhI U+PHRhYmxlIHdpZHRoPScxMDAl SsQnjVxvZW3qLz4kMXHaOBDg nBurqZNuKyMtd6oeIVIwCWjsGR 1izMgeS1MosLF1ZAGbu9j7Ku13 H39gC4TbtTD+NORpfCM8wSB2 qF7aRyQoEdK7KVddT578PyXkdV QuOczhx0deo3hmzJt5HcC6JJNi psDtcXivBPN8r9IvAf92B30h IHdpZHRoPSIxNSUiIHZhbGlnbj 6lbE8aAk7+OJNawXA0pWT7fK6h BnGmKoW2DLhoO313ElAinUIj Pgsmu7hkb0qroQc8ZyCdKYXrqt JzqFlrIZC7m8JcPs98V5NfdJzq p2KeYdv3bs67lFUxc3M9fAX0 C6MhMSMqomixsFPgaScgPF0cJC NjjxltOKCcpZ8xWQFfR8v4GsSy OdF0ODajF6GdraA9TXKevJGg XJprWPL3Y40ll5Q2FXTcYQYpMA L0lJZ7qZ4fwZmgfygzbHDhqSmz usXujNgmSGbzAFooR579MFFr iKbbABRbiC8wUAOxeNOjzKaqCF 4wNTBpbjsnPlNURUlOLCBWSVJH KO1DQWTXJZA4B8SwLzl8LXEi iNgxTR7tiGLdJQnoBk6pdYuqmY lnWM3sHDHcvquzNIIrrI1dUWDi gWBfbDrpJZ0vNXLnuhlqw850 FgGaIOZ6HLGkfVRvK6IgzK4zGw GyIPYtJXNnW9YhgKHcCTpbK471 JKeoDcO7XTJuteXtN4LoZUMj vHtqJbL5v2L5Ec0rZJ7xFP1dGX fwKT58QF95bBOba7X5cEL4I1Vp GJUygqkonghsjWM9QILvBOYg pN96tSFeGArwJh3hi8E9v006UU IqWMIaaH06Fs7qvFouPWAxdFLB rF4ynhdmm9bgesywXtWzPXBl ASq3XBh3ARAbsOddVwNhRAH9Ao B1SVO2xGEdlJ3szUtaxyyoyW4m Oyc+OlnxXYDiluR1X5TsBhn7 BEHwtChqYU8itWEjLLedZw6tjG hmuZjrDK3aVXSzxmnpRYRznG4b GFNuaUIzoWzhKJ8gGYManftd b490PvLrXKE0DWQusAQuI7YbrP 1bMzIcWWKwHUOeD2PkdVKtPBrs Y700GFjjSyM1MMUydhOsC4Gj CHSteTcyPyA2a9R2Qm3XXB0TJG X0A7IbDsr1FPCpwLftJA4bxFUl TIffXc2nfIvjkWevUO6yBLXp ujfhAQSkxS6iGGYymWWijTqhMP 9oDKKjeqhca806InYsRKK8RRAm qRHzY3FbaZ0nDmRcYXAiFQKo U0BtfHKoQUzfK185FLrmXhA3DG TssvNkQ1VsURJpsBwjWgH1y9J2 Nk9CwMZuJ2AsS4r5H3QtMafk dHI+LP91OHDdDS00cAUrqNDmq7 tplEk5YnDtFLOuSFY5oEleYYxw z7IjBIEmB67rlSMsx7B3TJYk nOvuiTOeRhOmiJB2hW0mCYfbmy bis2iciaknGpbxp5qazs99wB67 U87yQZxqAVUpLBXnFTHhYPTg fQbhbq4axA8uLv1+TMWztKU1kK D2cO8pSbYiPxE9BOuvE840TySr cXEqWkirc3xin9xgxXr1BnGi EJCqbhHeyOqtCBH5p6SiIy78F1 9sIHdpZHRoPSIyMCUiIHZhbGln ng5lhJ4lDz4+GH9og7rlqi87 mD65vOB+NNXhXZB8pUwtNTgnDO YezL8zQAesIaS9IJBuItResG00 eBPvREleQk9ylEeydNdeUE6j JLIkhudke767XhErg3rqIAJzjY HlGMukBUY2P75ly0K1JMIiWIWo LDE6hLF6rH4ejBgwgutmdSBa mIqkcoZoxOdrAIbfUKjjR588IY EfaCijVpNyjUCeJ8debaVHTF1x OjwvdGQ+QOSbHEC7vOidVJmn AKKcjY5pJATwG6b4AoFwBhG5JH rjZ7RtzaV3JVBkoDCoSQQwkIOX mF9mjpbbn4qntrixDoPdHOXb IOv0JVf5GNXkdKzyYeSkWOB3Ui I3HHD2qGZuoC7tfAaoajomwY6o Oyc+RklOOjwvdGQ+PHRkIHN0 oZjvCBkwIFPqrD8gOZLrH0b9Sb KxMrL9GBopU9AmwvE3JOPvzRMv MAKfbORFeJ4mhcxpw5sgjznu PvThKLQeQBb9DQe9WOSxuWtiDv KgZJD9KxI5PZH9kGHloN0guBbs jwqppM3bKgz+TVJOOjwvdGQ+ ZRHtGHI3gNgzGNbpMZMhjJ0pXT BkO4v2OpKkSoU8NInvA3CrspW0 QDIndJPbCZIugRHUkG5otbgt e8khbpgsDpMzUKTgSTy6DCu0OZ WowDlzLoIdJHD5KmS9TUP4pYNh mE9smSvydgnvzA6eUjz+UGF5 WVL2DX18FK32J1CkUxrqyNNagX U+PHRhYmxlIHdpZHRoPScxMDAl NdUyuAwcTZ9eRi5jJUBaNCGj bGx (more content not included)... Normal [facility] ED Clinical Summaryon 2021 ED Clinical Summary [facility] - Emergency Department [address] [place] [address] ED Clinical Summary PERSON INFORMATION Name: ZULEIKA WYATT Age: 31 Years Sex: FEMALE : 1990 MRN: Acct#: Visit Reason: Rib/trunk pain-swelling; ABD PAIN Arrival: 11/13/2021 16:30:24 Discharge: 11/13/2021 18:01:00 LOS: 000 01:31 Check In: 11/13/2021 16:30:24 Checkout:11/13/2021 18:01:00 Address: [address] [place] [address] [facility] [address] PCP: Andie Stoddard PROVIDER INFORMATION Provider Role [...] With: Address: When: CUONG ORTIZ [address] [place] [address] Within 1 to 2 days [...] results be sent to Dr. Ortiz, your POSTMASTER RELIEF physician. She will contact his office tomorrow [...] Patient/family/caregiver verbalizes understanding of instructions given Comment: Normal [facility] ED Note-Nursingon 11-13-2021 ED Note-Nursing [...] 6 with steady gait and no assistance. [facility] ED Patient Summaryon 022 ED Patient Summary [facility] - Emergency Department [address] [place] [address] PATIENT DISCHARGE INSTRUCTIONS Patient Information Name: ZULEIKA WYATT Age: 31 Years Date of : 1990 Reason For Visit: Rib/trunk pain-swelling; ABD PAIN Arrival Time: 11/13/2021 16:30:24 Primary Care Physician: Andie Stoddard Attending Physician: Gamaliel Wyman MD Comment: Visit Diagnosis: Diagnoses This Visit Elevated blood pressure reading (R03.0) History of abdominal pain (Z87.898) at early stage (Z34.90) Rib/trunk pain-swelling ([id number]) Prescription Information: If you have been given a prescription for narcotics, seek immediate medical attention if you have any difficulty breathing or any sudden status changes such as confusion and sleepiness. If you or anyone you know is experiencing suicidal thoughts, mental health, alcohol and/or drug addiction problems; contact the [facility] 07/01 Crisis Hotline -Text 4HGXT to 304709. If you received any narcotics, sedation, or [...] legal documents With: Address: When: CUONG ORTIZ [address] [place] [address] Within 1 to 2 days Comments: Diagnosis [...] results be sent to Dr. Ortiz, your POSTMASTER RELIEF physician. She will contact his office tomorrow [...] treatment you received today in the [facility] Emergency Department were for an urgent problem and are not intended as complete care. It is important for you to follow up with a doctor, nurse practitioner, or physician?s assistant maintenance manager for ongoing care. If your symptoms [...] so we can reach you if necessary. [facility] Emergency Department has provided you with a complete list of medications post discharge. Please inform your cash register balancer/provider of your visit and for further instruction [...] Temporal: 3 (more content not included)... Normal [facility] hCG Quantitativeon 2 hCG Quantitative 95110.0 mIU/mL High 0.0-0.6 [facility] Comment on above: Order Comment: Lucy whitney call or fax results to Dr. Ortiz's office Result Comment: Resu lt confirmed by dilution Post-Menopausal Reference Range is: 0.1-11.6 mIU/mL Performed By: #### [id number] #### [facility] (DEFAULT) [address] [place] [address] Coding Summary.on 12-19-2018 Coding Summary. CODING DATE: 019 FINAL [facility] DSC STATUS: Left Against Medical Advice [...] Boykin Date Saved: 12/19/2018 10:35 am Normal [facility] ED Clinical Summaryon 2018 ED Clinical Summary (Inserted Image. Elena ble to display) [place] [id number] ED Clinical Summary Person Information Name: ZULEIKA VILLALTA/[facility] Age: 28 Years : 1990 12:00 AM Sex: Female Language: PCP: Marital Status: Phone: [phone] Visit Id: Visit Reason: Test; MENSTRUAL PROBLEMS [...] 12/15/2018 5:58 PM 12/15/2018 5:58 PM ADDRESS: [address] [place] [address] [address] [place] [phone] PHYS DOC NOTES: MEDICAL INFORMATION: Prescriptions Given: PATIENT EDUCATION INFORMATION: Instructions: Follow up: DIAGNOSIS: Normal [facility] ED Patient Education Noteon 12-15-2018 ED Patient Education Note Normal [facility] ED Patient Summaryon 019 ED Patient Summary (Inserted Image. Elena ble to display) [place] [id number] Patient Discharge Instructions Person Information Name: ZULEIKA VILLALTA Age: 28 Years Arrival Date: 12/15/2018 4:37 PM Discharge Diagnosis: Primary Care Physician: Provider Information Primary Provider: Advanced Consulting Psychologist:None The exam and treatment you received in the Emergency Department were for an urgent problem and are not intended as complete care. It is important that you follow up with a doctor, nurse practitioner, or physician?s assistant maintenance manager for ongoing care. If your symptoms [...] opioids can be used to help relieve uauqmfcm-lo-mqgedm pain and are often prescribed following a [...] be struggling with addiction, tell your health transition of care specialist and ask for guidance or call [facility]?S National Helpline at 4-846-320-JSSP. Source: [place] Department of Health and Human Services/Center for Disease Control & Prevention [facility] Medications Given: Medication Dose Route No medications found. Medication Information: Comment: Pharmacy Information: Thank you for choosing [facility] Patient Education Materials: JADEN Jacome [place] , have received the following patient education materials/instructions and have verbalized understanding: Patient Education Materials: Follow-up Instructions: Prescriptions: Patient Signature __ Date Clinician/Nurse Signature Date 12/15/18 17:58:10 [facility] Progress Note-Nurseon 2018 Progress Note-Nurse [...] to take care of her daughter. Normal [facility] U BetaHcg Qualon 12-15-2018 HCG.beta subunit (U) [Moles/Vol] Negative Normal [facility] Comment on above: Performed By: #### 2 [id number], [id number] #### [facility] [address] [place] [address] UA With Cult Reflexon 2018 Bacteria LM Ql (Urine sed) TRACE Normal Trace [facility] Comment on above: Performed By: #### 2 [id number], [id number] #### [facility] [address] [place] [address] Bilirubin Ql (U) Negative Normal Negative [facility] Comment on above: Performed By: #### 2 [id number], [id number] #### [facility] [address] [place] [address] Clarity (U) CLEAR Normal Clear [facility] Comment on above: Performed By: #### 2 [id number], [id number] #### [facility] [address] [place] [address] Color (U) YELLOW Normal Yellow [facility] Comment on above: Performed By: #### 2 [id number], [id number] #### [facility] [address] [place] [address] Epithelial cells.squamous LM.HPF (Urine sed) [#/Area] 0-2 Normal 0-2 [facility] Comment on above: Performed By: #### 2 [id number], [id number] #### [facility] [address] [place] [address] Glucose Test strip (U) [Mass/Vol] Negative Normal Negative [facility] Comment on above: Performed By: #### 2 [id number], [id number] #### [facility] [address] [place] [address] Hemoglobin Ql (U) Negative Normal Negative [facility] Comment on above: Performed By: #### 2 [id number], [id number] #### [facility] [address] [place] [address] Ketones (U) [Mass/Vol] Negative Normal Negative [facility] Comment on above: Performed By: #### 2 6568100, [id number] #### [facility] [address] [place] [address] [place].plasma/[place] .RBC (Bld) [Mass ratio] 0-3 Normal 0-3 [facility] Comment on above: Performed By: #### 2 2836057, [id number] #### [facility] [address] [place] [address] Nitrite Ql (U) Negative Normal Negative [facility] Comment on above: Performed By: #### 2 [id number], [id number] #### [facility] [address] [place] [address] pH (U) 6.5 [pH] 5.0-9.0 [facility] Comment on above: Performed By: #### 2 [id number], [id number] #### [facility] [address] [place] [address] Protein (U) [Mass/Vol] Negative Normal Negative [facility] Comment on above: Performed By: #### 2 2801778, [id number] #### [facility] [address] [place] [address] Specific gravity (U) [Rel density] 1.010 1.005-1.03 0 [facility] Comment on above: Performed By: #### 2 [id number], [id number] #### [facility] [address] [place] [address] UA Spec Desc Clean Catch Normal [facility] Comment on above: Performed By: #### 2 [id number], [id number] #### [facility] [address] [place] [address] Urobilinogen Qn (U) 0.2 {Pamela'U}/dL Normal 0.0-1.0 [facility] Comment on above: Performed By: #### 2 4423912, [id number] #### [facility] [address] [place] [address] WBC Auto Ql (U) Negative Normal Negative [facility] Comment on above: Performed By: #### 2 [id number], [id number] #### [facility] [address] [place] [address] WBC LM.HPF (Urine sed) [#/Area] 0-5 Normal 0-5 [facility] Comment on above: Performed By: #### 2 7373661, [id number] #### [facility] [address] [place] [address] Auto Diffon 12-12-2017 Basophils Auto #/vol (Bld) 0.1 E3/mcL Normal 0.0-0.2 [facility] Comment on above: Order Comment: Order Added by Discern Expert. Performed By: #### 2 065170 ####KADEN [address]VoqBvoz[address] [place] [address] Basophils/100 WBC Auto (Bld) 0.9 % Normal 0.0-2.0 [facility] Comment on above: Order Comment: Order Added by Discern Expert. Performed By: #### 2 807059 ####KADEN BairdYknOtsb[address] [place] [address] Eos Absolute 0.0 E3/mcL Normal 0.0-0.7 [facility] Comment on above: Order Comment: Order Added by Discern Expert. Performed By: #### 2 163429 ####KADEN BairdJupFdqm[address]01 [place] [address] Eosinophils/100 leukocytes 0.4 % Normal 0.0-11.0 [facility] Comment on above: Order Comment: Order Added by Discern Expert. Performed By: #### 2 097788 ####KADEN [address] [place] [address] Lymphocytes 1.4 E3/mcL Normal 1.2-3.4 [facility] Comment on above: Order Comment: Order Added by Discern Expert. Performed By: #### 2 136706 ####KADEN [address] [place] [address] Lymphocytes/100 leukocytes 16.6 % Low 20.0-55.0 [facility] Comment on above: Order Comment: Order Added by Discern Expert. Performed By: #### 2 879960 ####KADEN [address] [place] [address] [place] Absolute 0.5 E3/mcL Normal 0.0-0.7 [facility] Comment on above: Order Comment: Order Added by Discern Expert. Performed By: #### 2 575660 ####KADEN [address] [place] [address] Monocytes/100 leukocytes 5.5 % Normal 0.0-10.0 [facility] Comment on above: Order Comment: Order Added by Discern Expert. Performed By: #### 2 641315 ####KADEN [address] [place] [address] Neutro Absolute 6.7 E3/mcL High 1.4-6.5 [facility] Comment on above: Order Comment: Order Added by Discern Expert. Performed By: #### 2 102900 ####KADEN [address] [place] [address] Neutro Auto 76.6 % High 37.0-75.0 [facility] Comment on above: Order Comment: Order Added by Discern Expert. Performed By: #### 2 664348 ####KADEN [address] [place] [address] CBC w/ Auto Diffon 8 Erythrocyte distribution width Auto Ratio (RBC) 15.0 % High 11.5-14.5 [facility] Comment on above: Performed By: #### 2 347614 ####KADEN [address] [place] [address] Erythrocytes (RBC) 4.94 E6/mcL Normal 3.90-5.40 [facility] Comment on above: Performed By: #### 2 383467 ####KADEN BairdIvkIhap[address] [place] [address] Hematocrit (HCT) 40.0 % Normal 36.0-48.0 [facility] Comment on above: Performed By: #### 2 228129 ####KADEN B[address]RunCknl[address] [place] [address] Hemoglobin mass conc (Bld) 13.0 g/dL Normal 12.0-16.0 [facility] Comment on above: Performed By: #### 2 775842 ####KADEN B[address]VolWjby[address] [place] [address]69[address] MCH 26.2 pg Low 27.0-31.0 [facility] Comment on above: Performed By: #### 2 198040 ####KADEN [address] [place] [address]69[address] MCHC mass conc (RBC) 32.4 g/dL Low 33.0-37.0 [facility] Comment on above: Performed By: #### 2 572867 ####KADEN BairdZvjYyow[address] [place] [address] MCV 81.0 fL Normal 78.0-100.0 [facility] Comment on above: Performed By: #### 2 114268 ####KADEN BairdAblQyom[address] [place] [address] Platelet mean volume (PMV) 7.5 fL Normal 7.4-11.0 [facility] Comment on above: Performed By: #### 2 923068 ####KADEN BairdCbuWshq[address]163 [place] [address] Platelets 347 E3/mcL Normal 130-400 [facility] Comment on above: Performed By: #### 2 208476 ####KADEN BairdJngMtkv8567 [place] [address] WBC (Leukocytes) 8.7 E3/mcL Normal 3.6-11.0 [facility] Comment on above: Performed By: #### 2 103569 ####KADEN BairdVwuPafe[address]7 [place] [address] CMPon 12-12-2017 Alanine aminotransferase (ALT) 14 Int._Unit/L Normal 10-40 [facility] Comment on above: Performed By: #### 2 541132 ####KADEN [address] [place] [address] Albumin 3.8 g/dL Normal 3.2-5.0 [facility] Comment on above: Performed By: #### 2 959735 ####KADEN [address] [place] [address] Albumin/Globulin Ratio 1.0 {ratio} Low 1.1-1.9 [facility] Comment on above: Performed By: #### 2 952063 ####KADEN [address] [place] [address] Alk Phos 75 Int._Unit/L Normal 42-121 [facility] Comment on above: Performed By: #### 2 948151 ####KADEN [address] [place] [address] Aspartate aminotransferase (AST) 18 Int._Unit/L Normal 10-42 [facility] Comment on above: Performed By: #### 2 295081 ####KADEN [address] [place] [address] Bili Total 1.0 mg/dL Normal 0.2-1.0 [facility] Comment on above: Performed By: #### 2 472217 ####KADEN [address] [place] [address] BUN/Creatinine Ratio 12.5 ratio Normal 5.4-30.0 [facility] Comment on above: Performed By: #### 2 286649 ####KADEN [address] [place] [address] Creatinine 0.8 mg/dL Normal 0.6-1.3 [facility] Comment on above: Performed By: #### 2 307560 ####KADEN [address] [place] [address] Globulin 3.8 g/dL Normal 2.0-4.0 [facility] Comment on above: Performed By: #### 2 591165 ####KADEN BairdMzrVdmn4967 [place] [address] Protein 7.6 g/dL Normal 6.4-8.3 [facility] Comment on above: Performed By: #### 2 019022 ####KADEN [address] [place] [address] Urea nitrogen 10 mg/dL Normal 7-18 [facility] Comment on above: Performed By: #### 2 213836 ####KADEN [address] [place] [address] Calcium 9.3 mg/dL Normal 8.4-10.2 [facility] Comment on above: Performed By: #### 2 591206 ####KADEN [address] [place] [address] Chloride 105 mmol/L Normal 98-107 [facility] Comment on above: Performed By: #### 2 583063 ####KADEN [address] [place] [address] CO2 25.1 mmol/L Normal 24.0-30.0 [facility] Comment on above: Performed By: #### 2 829975 ####KADEN [address] [place] [address] Glucose mass conc 101 mg/dL High 70-99 [facility] Comment on above: Performed By: #### 2 598776 ####KADEN [address] [place] [address] Potassium molar conc 3.4 mmol/L Low 3.5-5.1 [facility] Comment on above: Performed By: #### 2 373801 ####KADEN [address] [place] [address] Sodium 140 mmol/L Normal 136-145 [facility] Comment on above: Performed By: #### 2 925210 ####KADEN [address]ErhKjqe[address] [place] [address] Lipase Levelon 12-12-2017 Lipase Lvl 30 U/L Normal 8-57 [facility] Comment on above: Performed By: #### 2 864237 ####KADEN [address] [place] [address] UA Completeon 12-12-2017 UA Blood 3+ Normal Negative [facility] Comment on above: Performed By: #### 2 842668 ####KADEN B[address]YbnOctn[address] [place] [address] UA Bacteria Trace Abnormal None [facility] Comment on above: Performed By: #### 2 291710 ####KADEN [address] [place] [address] UA Clarity SltCloudy Abnormal Clear [facility] Comment on above: Performed By: #### 2 951130 ####KADEN HknGtxo9707 [place] [address] UA Hyal Cast 0-2 Normal 0-2 [facility] Comment on above: Performed By: #### 2 225859 ####KADEN CzqYnwe[address] [place] [address] UA Leuk Est 3+ Abnormal Negative [facility] Comment on above: Performed By: #### 2 624480 ####KADEN CqmNsal7518 [place] [address] UA Mucous Many Abnormal Trace [facility] Comment on above: Performed By: #### 2 091721 ####KADEN LqcCduc1722 [place] [address] UA Nitrite Negative Normal Negative [facility] Comment on above: Performed By: #### 2 438266 ####KADEN HcdCxpk1432 [place] [address] UA pH 5.0 Normal 4.6-8.0 [facility] Comment on above: Performed By: #### 2 016173 ####KADEN QvrAgsg6928 [place] [address] UA Protein 1+ Abnormal Negative [facility] Comment on above: Performed By: #### 2 515216 ####KADEN TgrOabj2790 [place] [address] UA Spec Grav 1.026 Normal 1.003-1.03 0 [facility] Comment on above: Performed By: #### 2 264010 ####KADEN KfdRskn4638 [place] [address] UA Squam Epithelial 0-5 Normal 0-5 [facility] Comment on above: Performed By: #### 2 150759 ####KADEN [address] [place] [address] UA Urobilinogen 2.0 mg/dL Abnormal [facility] Comment on above: Performed By: #### 2 999866 ####KADEN [address] [place] [address] UA WBC >50 Abnormal 0-5 [facility] Comment on above: Performed By: #### 2 907075 ####KADEN [address] [place] [address] Urine, color Yellow Normal Yellow [facility] Comment on above: Performed By: #### 2 522301 ####KADEN [address] [place] [address] Urine, erythrocytes 20-50 Abnormal 0-3 [facility] Comment on above: Performed By: #### 2 819965 ####KADEN [address] [place] [address] Urine, glucose Negative Normal Negative [facility] Comment on above: Performed By: #### 2 087074 ####KADEN [address] [place] [address] Urine, ketones presence Trace Normal [facility] Comment on above: Performed By: #### 2 755993 ####KADEN [address] [place] [address] Urine, urobilinogen Negative Normal Negative [facility] Comment on above: Performed By: #### 2 230936 ####KADEN [address] [place] [address] eGFRon 12-12-2017 eGFR AA >60 Normal [facility] Comment on above: Order Comment: Order Added by Discern Expert. Performed By: #### 2 735696 ####KADEN BairdXqmUkrn5738 [place] [address] eGFR (non-black) mL/min/{1.73_m2} Normal [facility] Comment on above: Order Comment: Order Added by Discern Expert. Performed By: #### 2 342807 ####KADEN [address] [place] [address] HISTORY PHYSICALon 06-18-201 8 HISTORY PHYSICAL HNO ID: [id number] thor: Clara ChaoeService: Maternal MedicineAuthor Type: PhysicianType: HANDPFiled: 12/02/2017 9:04 AMNote Text:[facility] DOCUMENTDISCHARGE SUMMARYPatient Name: Zuleika Gtz [...] with provider.Clara Jama, DO Normal [facility] PROGRESSon 12-02-2017 PROGRESS HNO ID: [id number] thor: Marie Lema (Res) JabiereService: ObstetricsAuthor Type: ResidentType: Progress NotesFiled: 12/02/2017 5:45 [...] home. Has appt with medical genetics01/15/18.Signature: Clara Jama DODate: 12/02/2017Time: 8:43 AMI spent 32 minutes in the visit, with more than 50% of the total xwxz-gn-[id number] of the visit in counseling / coordination of care. -------OBSTETRICSPOSTPRISHABHU M PROGRESS NOTESERVICE DATE: December 02, 2017SERVICE [...] decreasing.Ambulating without difficulty.OBJECTIVE:PHYSI GEN EXAM:Heart: RR, S1, K3Rklko: clear to auscultationAbdomen: Soft Bowel sounds present [...] 2017 : 5:45 AM Normal [facility] SOCIAL WORKon 12-02-2017 SOCIAL WORK HNO ID: [id number] thor: Meredith Jackson (Sw)oService: Social WorkAuthor Type: Social WorkerType: Social WorkFiled: 12/02/2017 12:25 PMNote Text:SOCIAL WORK CONSULT NOTESERVICE DATE: 12/02/2017SERVICE TIME: 1015Referred by: Jose for visit:Maternal/Infant - adjustment to conditionLiving Arrangement: HomeLives With: PartnerFinancial Resources: DisabledPrimary Contact:Extended Emergency Contact Information DARRELL BRANCH IIPrunc health rexadelaida Emergency Contact: No,ContactRelation: OtherSupportive: YesOther Important Patient Contacts: FOKaren family (Alma and Salomon Munoz)Health Insurance: [place] [...] from hospital. (FOBparents are Anamika Munoz of [address] [place] [address] , [facility]).Per pt and FOB, all needed baby supplies and equipment are at the [facility] and a nursery has been set up.Per pt, name of baby girl is Martha Branch.Pt states she is on SSI and WIC.Pt shares that she is in ongoing counseling at [facility] in [place] and has appointments 2 x per month.Discussed with pt and FOB signs and sx of depression; safe babysleep and discussed ways to deal with crying . Pt again states sheis going to rely on her support system.No additional issues identified at this time. Encouraged pt and FOB toutilize services through [facility]. Providedcontact information.Outcome/Recomm endations:[facility] spent (minutes): 60SIGNATURE: CARLA Goncalves PATIENT NAME: Zuleika Hernandez: December 02, 2017 : 11:10 AM PAGER/CONTACT#: Debo [facility] ANES INTRAOPon 12-01-2017 ANES INTRAOP HNO ID: [id number] thor: Terrance Lockhartervice: AnesthesiologyAuthor Type: Nurse AnesthetistType: Anesthesia IntraOpFiled: 12/01/2017 9:41 AMNote Text:ANALGESIA PROGRESS RECORDCATHETER REMOVAL/END OF CASESERVICE DATE: 12/01/2017REMOVAL DATE AND TIME: 11/30/2017, 1953DELIVERY DATE AND TIME: 11/30/2017 at 5:49 PMCATHETER REMOVAL:Catheter Removal: See [facility] Nursing noteSIGNATURE: Terrance Contreras APRN.VP ACCOUNT DIRECTOR PATIENT NAME: Zuleika Hernandez: December 01, 2017 : 9:40 AM PAGER/CONTACT #: [facility] ANES Keke 12-01-2017 ANES POST HNO ID: [id number] thor: Terrance WillsgService: AnesthesiologyAuthor Type: Nurse AnesthetistType: Anesthesia PostOpFiled: 12/01/2017 9:43 AMNote Text:POST ANESTHESIA EVALUATION NOTESERVICE DATE: 12/01/2017SERVICE TIME: 9:42 AMDOB: 1990Vitals: 12/01/1799Temp: 36.7 ?C (98.1 ?F) 36.8 ?C (98.2 ?F) 36.4 ?C (97.5 ?F) 36.4 ?C (97.5?F) 12/01/17993BP: 119/55 102/61 107/57 116/72 12/01/17993Pulse: 90 79 65 78 12/01/1799Resp: 20 16 20 16 241 2 11/30/1820SpO2: 100% 98% 98% 98%Validated Vital Signs: YesPOST ANES STATUS: No apparent anesthetic complications. The patient isappropriately hydrated with stable respiratory and cardiovascular status.Patient has safe and adequate airway control. The patient has appropriatepain relief and no significant post operative nausea or vomiting. Thepatient has achieved baseline mental status.Further assessment by Anesthesia Service: NoneOther Remarks:SIGNATURE: Terrance Contreras APRN.CRNA PATIENT NAME: Zuleika Hernandez: December 01, 2017 : 9:42 AM PAGER/CONTACT #: [facility] PROGRESSon 12-01-2017 PROGRESS HNO ID: [id number] thor: Marie Lema (Joaquín) LendeService: ObstetricsAuthor Type: [...] decreasing.Ambulating without difficulty.OBJECTIVE:PHYSI GEN EXAM:Heart: RR, S1, P3Ymxll: clear to auscultationAbdomen: Soft Bowel sounds present [...] 2017 : 6:40 AM Normal [facility] ABO/Rh Confirmationon 2017 ABO group Nom (Bld) A Normal [facility] Comment on above: Performed By: #### A JESSIE #### [place] [address] RH Type Positive Normal [facility] Comment on above: Performed By: #### A JESSIE #### [place] [address] ANES PREOPon 11-30-2017 ANES PREOP HNO ID: [id number] thor: Aaron (Orientor) ChinoService: AnesthesiologyAuthor Type: Nurse AnesthetistType: Anesthesia PreOpFiled: 11/30/2017 [...] of Sleep Apnea: DeniesHematocritDate Value Ref Range Txvawm8211/30/2017 32.3 (L) 34.1 - 44.9 % Final Platelet CountDate Value Ref Range Gpsqir8011/30/2017 193 182 - 369 thou/cmm Final Vitals: 821 830 139 143BP: 142/75 138/81Pulse: 75 81Resp:Temp: 36.6 [...] otherwise documented in primary service progress notes: [facility] contains updated information obtained within 48 hours ofSurgery/Procedure.SIGNAT URE: Hema Cuellar APRN.VP ACCOUNT DIRECTOR PATIENT NAME: Zuleika LambATE: November 30, 2017 : 12:13 PM : 1990 Normal [facility] Auto Diffon 11-30-2017 Basophils Auto #/vol (Bld) 0.1 E3/mcL Normal 0.0-0.2 [facility] Comment on above: Order Comment: Order Added by Discern Expert. Performed By: #### 2 607873 ####KADEN BairdCjaMizi[address]5 [place] [address] Basophils/100 WBC Auto (Bld) 0.9 % Normal 0.0-2.0 [facility] Comment on above: Order Comment: Order Added by Discern Expert. Performed By: #### 2 474954 ####KADENMorelia BairdRzkVtsx3856 [place] [address] Eos Absolute 0.1 E3/mcL Normal 0.0-0.7 [facility] Comment on above: Order Comment: Order Added by Discern Expert. Performed By: #### 2 692110 ####KADEN VgdDusj3853 [place] [address] Eosinophils/100 leukocytes 1.0 % Normal 0.0-11.0 [facility] Comment on above: Order Comment: Order Added by Discern Expert. Performed By: #### 2 151818 ####KADEN UpsYecr7699 [place] [address] Lymphocytes 2.0 E3/mcL Normal 1.2-3.4 [facility] Comment on above: Order Comment: Order Added by Discern Expert. Performed By: #### 2 359563 ####KADEN YdtZfdf5591 [place] [address] Lymphocytes/100 leukocytes 22.1 % Normal 20.0-55.0 [facility] Comment on above: Order Comment: Order Added by Discern Expert. Performed By: #### 2 838941 ####KADEN EoiQvlp1172 [place] [address] [place] Absolute 0.7 E3/mcL Normal 0.0-0.7 [facility] Comment on above: Order Comment: Order Added by Discern Expert. Performed By: #### 2 990959 ####KADEN [address] [place] [address] Monocytes/100 leukocytes 7.5 % Normal 0.0-10.0 [facility] Comment on above: Order Comment: Order Added by Discern Expert. Performed By: #### 2 195557 ####KADEN [address] [place] [address] Neutro Absolute 6.1 E3/mcL Normal 1.4-6.5 [facility] Comment on above: Order Comment: Order Added by Discern Expert. Performed By: #### 2 672648 ####KADEN [address] [place] [address] Neutro Auto 68.5 % Normal 37.0-75.0 [facility] Comment on above: Order Comment: Order Added by Discern Expert. Performed By: #### 2 209409 ####KADEN [address] [place] [address] CBC w/ Auto Diffon 8 Erythrocyte distribution width Auto Ratio (RBC) 14.3 % Normal 11.5-14.5 [facility] Comment on above: Performed By: #### 2 160898 ####KADEN [address] [place] [address] Erythrocytes (RBC) 4.34 E6/mcL Normal 3.90-5.40 [facility] Comment on above: Performed By: #### 2 907616 ####KADEN [address] [place] [address] Hematocrit (HCT) 35.1 % Low 36.0-48.0 [facility] Comment on above: Performed By: #### 2 930998 ####KADEN [address] [place] [address] Hemoglobin mass conc (Bld) 11.6 g/dL Low 12.0-16.0 [facility] Comment on above: Performed By: #### 2 444950 ####KADEN AfwCacy[address]180 [place] [address] MCH 26.6 pg Low 27.0-31.0 [facility] Comment on above: Performed By: #### 2 491151 ####KADEN [address] [place] [address] MCHC mass conc (RBC) 32.9 g/dL Low 33.0-37.0 [facility] Comment on above: Performed By: #### 2 147394 ####KADEN [address] [place] [address] MCV 80.9 fL Normal 78.0-100.0 [facility] Comment on above: Performed By: #### 2 193132 ####KADEN [address] [place] [address] Platelet mean volume (PMV) 7.6 fL Normal 7.4-11.0 [facility] Comment on above: Performed By: #### 2 496952 ####KADEN [address] [place] [address] Platelets 217 E3/mcL Normal 130-400 [facility] Comment on above: Performed By: #### 2 088966 ####KADEN BairdPolClmw0813 [place] [address] WBC (Leukocytes) 8.8 E3/mcL Normal 3.6-11.0 [facility] Comment on above: Performed By: #### 2 107356 ####KADEN BairdXanPkst5259 [place] [address] CONSULTon 11-30-2017 CONSULT HNO ID: [id number] thor: Marie Lema (Res) LendeService: ObstetricsAuthor Type: [...] T0 L0 SAB1 TAB0 Ectopic0 Multiple0 Live Tlhupj0Zboe of Baby 1: Not recorded Date: 2014 [...] pupils equal, no thyromegalyLungs: clearHeart: RR, S1, E1Dzmbbne: soft, nontender, no massesUterus: soft, NTExtremities: 1+ edemaDTRs: 2+FHT: bpmSt Spec Exam: (not done)CERVICAL EXAM:Dilation: 1 (11/30/17 0648 : Marie Lema (Res) Lendtramaine) cmStation: -2 [...] Epi prn4. [place]5. [place] [address]. anomalies- prominent cisterna magna, bilateral periventrcularnodular heterotopia, [...] EF 55%.10. H/o maternal clubfoot-s/p repair as mcyarb44. H/o tobacco abuseSigned out to [facility] for deliveryDr. Amado reviewed with Dr. MaldonadoSIGNATURE: Marie Hassan DO PATIENT NAME: Zuleika LambATE: November 30, 2017 : 6:49 AM PAGER/CONTACT #: [phone] Normal [facility] HISTORY PHYSICALon 8 HISTORY PHYSICAL HNO ID: [id number] thor: Marie Lema (Joaquín) JabiereService: ObstetricsAuthor Type: ResidentType: HANDPFiled: 11/30/2017 7:00 [...] T0 L0 SAB1 TAB0 Ectopic0 Multiple0 Live Ordiza5Srke of Baby 1: Not recorded Date: 2014 [...] pupils equal, no thyromegalyLungs: clearHeart: RR, S1, E9Zjusfjq: soft, nontender, no massesUterus: soft, NTExtremities: 1+ edemaDTRs: 2+FHT: bpmSt Spec Exam: (not done)CERVICAL EXAM:Dilation: 1 (11/30/17 0648 : Marie Lema (Res) Sonya) cmStation: -2 (11/30/17 0648 : Marie Lema (Res) Sonya)Effacement: 60 (11/30/17 0648 : Marie Lema (Joaquín) Sonya) %Position:Presentation: Pelvimetry: Pelvimetry clinically assessed as adequateFETAL MONITORING/ASSESSMENT:Base line: 140sVariability: ModerateAccelerations: Acelerations presentDecelerations: AbsentContractions: Rare contractionsFrequency: rareNST Interpretation: IFHR Category:NST Comments:EFW: 6.5 based on clinical assessment.Ultrasound:Posi tion: VertexPlacenta: AnteriorCardiac Motion: PresentAmniotic Fluid: No 2X2 pocket notedDiagnostic tests reviewed for today's visit:Assessment/Plan27 year old EGA:39w0d. Is admitted for augmentation for PROM1. GBS-2. Pit per protocol3. Epi prn4. FB soon5. [place] [address]. anomalies- prominent cisterna magna, bilateral periventrcularnodular heterotopia, [...] EF 55%.10. H/o maternal clubfoot-s/p repair as sdwxki75. H/o tobacco abuseSigned out to [facility] for deliveryD/w Dr. AmadoSIGNATURE: Marie Hassan DO PATIENT NAME: Zuleika LambATE: November 30, 2017 : 6:49 AM PAGER/CONTACT #: [phone] Normal [facility] Hemogramon 11-30-2017 Erythrocyte distribution width Ratio (RBC) 13.6 % Normal 11.7-14.4 [facility] Comment on above: Performed By: #### C BC1 #### [place] [address] Hematocrit Volume Fraction (Bld) 32.3 % Low 34.1-44.9 [facility] Comment on above: Performed By: #### C BC1 #### [facility] [address] [place] [address] Hemoglobin mass conc (Bld) 10.4 g/dL Low 11.2-15.7 [facility] Comment on above: Performed By: #### C BC1 #### [facility] [address] [place] [address] MCH Entitic mass (RBC) 26.4 pg Normal 25.6-32.2 [facility] Comment on above: Performed By: #### C BC1 #### [facility] [address] [place] [address] MCHC mass conc (RBC) 32.2 % Normal 31.6-34.8 [facility] Comment on above: Performed By: #### C BC1 #### [facility] [address] [place] [address] MCV Entitic volume (RBC) 82.0 fL Normal 79.4-94.8 [facility] Comment on above: Performed By: #### C BC1 #### [facility] [address] [place] [address] Platelet mean volume Entitic volume (Bld) 9.9 fL Normal 9.4-12.3 [facility] Comment on above: Performed By: #### C BC1 #### [facility] [address] [place] [address] Platelets #/vol (Bld) 193 thou/cmm Normal 182-369 [facility] Comment on above: Performed By: #### C BC1 #### [facility] [address] [place] [address] RBC #/vol (Bld) 3.94 mil/cmm Normal 3.93-5.22 [facility] Comment on above: Performed By: #### C BC1 #### [facility] [address] [place] [address] RDW SD 40.6 fl Normal 36.4-46.3 [facility] Comment on above: Performed By: #### C BC1 #### [facility] [address] [place], [place] [address] WBC #/vol (Bld) 9.85 thou/cmm Normal 3.98-10.04 [facility] Comment on above: Performed By: #### C BC1 #### [facility] [address] [place], [place] [address] LD NOTEon 11-30-2017 LD NOTE HNO ID: [id number] thor: Marie Lema (Res) LendeService: ObstetricsAuthor Type: ResidentType: LANDD Delivery NoteFiled: 11/30/2017 6:19 PMNote Text: -------Attestation signed by Serenity Maldonado MD at 12/01/2017 6:04 PMI saw and evaluated the patient. I reviewed the resident's note and agree,except that patient seen by [facility] (patient has FAS, fetus with multipleanomlaies) service, consult placed to [facility] for management of labor AND delivery.Essential primip presented at 39w with PROM, had Pugh balloon AND Pitocin foraugmentaion. Late in labor noted tachycardia that improved with IVFB ANDTylenol (mother rico had elevated temp but felt warm). [facility] [place] [facility] to awaiting NICU team for evaluation (was allowed tohave delivery to abdomen AND 30 sec delay for cord clamping). Pushed well AND hadSVD of a viable female (APGARS 8,9, weight of 3200g/7#1oz) over intactperineum. Uterus slightly boggy after delivery, responded to massage AND Pitocininfusion, EBL ~500cc.Serenity Maldonado MD ----OBSTETRICSDELIVERY SUMMARY - VAGINAL DELIVERYGestational Age at Delivery: 12d1uYtqmvzw Date: 11/30/2017Service Time: 1800Keegan, Bg Zuleika Dillard [[id number]]Labor EventsRupture Date: 11/30/17Rupture Time: 224Rupture Type: PROMFluid [...] EpiduralMeasurements, Apgars:Code Uziel Called: YesType of Code [place] Team Needed: PlannedA digital sweep of the [...] valvular insufficiency with EF this of 55%. Hildaalso has a history of former tobacco abuse.SIGNATURE: Marie Hassan DO PATIENT NAME: Zuleika Dillard JonenDATE: November 30, 2017 : 6:15 PM Normal [facility] NURSING PROGon 11-30-2017 NURSING PROG HNO ID: [id number] thor: Marguerite (Rn) Sandy Albarranice: (none)Author Type: Registered NurseType: Nursing Progress NoteFiled: 11/30/2017 7:06 PMNote Text: INTRODUCED SELF TO PATIENT AND SUPPORT PERSONS. PLAN OF CARE DISCUSSED.ASSESSMENT PERFORMED. PATIENT DENIES COMPLAINTS. Normal [facility] NURSING PROG HNO ID: [id number] thor: Darcie (Rn) ANEUDY Landeroservice: NursingAuthor Type: Registered NurseType: Nursing Progress NoteFiled: 11/30/2017 10:03 AMNote Text:Patient up to shower for comfort. Boyfriend at side. On telemetrymonitors. RN remains in room. FHR difficult to maintain continuoustracing Normal [facility] NURSING PROG HNO ID: [id number] Author: Norah (Rn) KARRI Eastman Service: Nursing Author Type: Registered Nurse Type: Nursing Progress Note Filed: 11/30/2017 7:18 AM Note Text: Report given to Darcie DURAN and care transferred at this time. Normal [facility] PROCEDUREon 11-30-2017 PROCEDURE HNO ID: [id number] thor: Aaron (Orientor) PoloService: AnesthesiologyAuthor Type: Nurse AnesthetistType: ProceduresFiled: 11/30/2017 [...] Catheter in Epidural Space: 5 cmInterspace: approximately L2-P3Qgexsr of Attempts: 1Wet Tap Complication: NoDural Puncture [...] nurses' documentation for additional vitals.SIGNATURE: Hema Cuellar APRN.VP ACCOUNT DIRECTOR PATIENT NAME: Zuleika BecerrilnDATE: November 30, 2017 : 12:27 PM PAGER/CONTACT #: [facility] PROGRESSon 11-30-2017 PROGRESS HNO ID: [id number] thor: Marie Lema (Res) LendeService: ObstetricsAuthor Type: ResidentType: Progress NotesFiled: 11/30/2017 5:04 PMNote Text:UpdatePatient is pushing in the OR. Cat I FHRT with baseline around 160s. updated and in house.Franki Neri 2017 5:[address] [facility] PROGRESS HNO ID: [id number] Author: Darcie (Rn) KARRI Landeros Service: Nursing Author Type: Registered Nurse Type: Progress Notes Filed: 11/30/2017 3:29 PM Note Text: Patient feeling pressure, cervical exam 9.5 cm. NICU notified. Patient feels warm, but temp 36.9. [facility] PROGRESS HNO ID: [id number] thor: Marie Lema (Res) LendeService: ObstetricsAuthor Type: [...] Tigre,RN)Rupture Date: 11/30/17 (11/30/17 0853 : Darcie (Karri) Tigre RN)Rupture Time: 022 (11/30/17 0853 : Darcie (Karri) Tigre RN)Amniotic Fluid Color: Clear (11/30/17 0853 : Darcie (Karri) Tigre RN)Additional Findings: NoneFETAL MONITORINGFHT: 150s Moderate/acelerations present/early decelerations/isolated latedecelerationsToco: 2-3 minutesCategory: IILABSDiagnostic tests reviewed for today's visit: Most recent labs and imagingresults.Assessment/ Plan27 year old EGA:39w0d. Admitted for augmentation for PROM1. GBS-2. Pit per protocol3. Epi in- pt comfortable4. s/p FB5[place] [address]. anomalies- prominent cisterna magna, bilateral periventrcularnodular heterotopia, [...] maternal clubfoot-s/p repair as . H/o tobacco abuse12. Cat II- Isolate late decelerations. Moderate variability. Continuingto make cervical change. Not on Cat II protocol.SIGNATURE: Marie Hassan DO PATIENT NAME: Zuleika BecerrilnDATE: November 30, 2017 : 1:35 PM PAGER/CONTACT #: [phone] Normal [facility] PROGRESS HNO ID: [id number] thor: Yolanda (Res) SnyderService: ObstetricsAuthor Type: ResidentType: [...] 0853 : Darcie (Rn) Tigre, RN)Rupture Time: 022 (11/30/17 0853 : Darcie (Rn) Tigre, RN)Amniotic Fluid Color: Clear (11/30/17 0853 : Darcie (Rn) Tigre, RN)Additional Findings: NoneFETAL MONITORINGFHT: 145/mod/rare accel/+early decelToco: 1-3 minutesCategory: ILABSDiagnostic tests reviewed for today's visit: No new labsAssessment/Plan27 year old EGA:39w0d. Admitted for AOL PROM1. GBS-2. Pit per protocol3. Epi in- pt comfortable4. s/p FB5. [place] [address]. anomalies- prominent cisterna magna, bilateral periventrcularnodular heterotopia, [...] EF 55%.10. H/o maternal clubfoot-s/p repair as qqnyll06. H/o tobacco abuseSIGNATURE: Yolanda Barbosa DO PATIENT NAME: Zuleika LambATE: November 30, 2017 : 1:11 PM PAGER/CONTACT #: [phone] Normal [facility] PROGRESS HNO ID: [id number] thor: Yolanda Almonteervice: ObstetricsAuthor Type: ResidentType: Progress NotesFiled: 11/30/2017 11:07 AMNote Text:OBSTETRICSINTRAPARTUM PROGRESS NOTESERVICE DATE: November 30, 2017SERVICE TIME: 11:05 AMSubjectivePatient with no complaints.ObjectiveLAST VITALS:Pulse BP Resp O2 Sat Temp Pain 75 142/75 18 100 % 36.6 ?C (97.9 ?F) 10PHYSICAL EXAM:CERVICAL EXAM:Last Exam Notes: Dilation: 1 (11/30/17 0648 : Marie N (Res) Sonya)Effacement (%): 60 (11/30/17 0648 : [...] Pit per protocol3. [place] [address]. [place] [address]. anomalies- prominent cisterna magna, bilateral periventrcularnodular heterotopia, [...] EF 55%.10. H/o maternal clubfoot-s/p repair as ppukxy71. H/o tobacco abuseSIGNATURE: Yoladna Barbosa DO PATIENT NAME: Zuleika BecerrilnDATE: November 30, 2017 : 11:05 AM PAGER/CONTACT #: [phone] [facility] PROGRESS HNO ID: [id number] Author: Darcie (Rn) KARRI Landeros Service: Nursing Author Type: Registered Nurse Type: Progress Notes Filed: 11/30/2017 10:35 AM Note Text: Unable to find labwork for chart. [facility] PROGRESS HNO ID: [id number] thor: Marie Lema (Res) JabiereService: ObstetricsAuthor Type: [...] Lema (Res) Sonya)Station: -2 (11/30/1748 : Marie PérezPresentation: (not recorded)MEMBRANES:Status: Membrane Status: Premature (11/30/17 0853 : Darcie (Rn) TigreRN)Rupture Date: 11/30/17 (11/30/17 0853 : Darcie (Karri) Tigre RN)Rupture Time: 0225 (11/30/17 0853 : Darcie (Karri) Tigre RN)Amniotic Fluid Color: Clear (11/30/17 0853 : Darcie (Rn) Tigre RN)Additional Findings: NoneFETAL MONITORINGFHT: 135s Moderate/acelerations present/decelerations absentToco: 2-4 minutesCategory: ILABSDiagnostic tests reviewed for today's visit: Most recent labs and imagingresults.Assessment/ Plan27 year old EGA:39w0d. Admitted for augmentation for PROM1. GBS-2. Pit per protocol3[place] [address]. [place] [address]. anomalies- prominent cisterna magna, bilateral periventrcularnodular heterotopia, [...] EF 55%.10. H/o maternal clubfoot-s/p repair as eitwwz13. H/o tobacco abuse?SIGNATURE: Marie Hassan DO PATIENT NAME: Zuleika LambATE: November 30, 2017 : 10:31 AM PAGER/CONTACT #: [phone] [facility] PROGRESS HNO ID: [id number] thor: ANEUDY Seaman Rnervice: NursingAuthor Type: Registered NurseType: Progress NotesFiled: 11/30/2017 10:13 AMNote Text:Patient remains in shower. RN and boyfriend at side. EFM on telemetryand adjusted while patient in shower. Difficult to keep baby on. Normal [facility] PROGRESS HNO ID: [id number] thor: Yolanda (Res) GabrielaerService: ObstetricsAuthor Type: ResidentType: Progress NotesFiled: 11/30/2017 7:35 AMNote Text:In to place FB. Pt tolerated procedure well. Continues to leak clearfluid. Pt uncomfortable with contractions.Cat I FHT, reactive with accelsToco: 2-5 minsHeather Romina, PGY-1Obstetrics and GynecologyPager [phone]/7:34 AM Normal [facility] Type and Screenon 11-30-2017 ABO group Nom (Bld) A Normal [facility] Comment on above: Performed By: #### T &S #### [place] [address] Comment See Below [facility] Comment on above: Result Comment: Scre en &/or Xmatch expires in 3 days at 12 midnight. Redraw patient at that time. Performed By: #### T &S #### [place] [address] RH Type Positive Normal [facility] Comment on above: Performed By: #### T &S #### [place] [address] Progress Noteon 11-28-2017 Manager Contracting Authentication Interface Message Text Routine VisitSubjective: Zuleika Villalta is being seen today for her obstetrical visit. She is at 80j8bkgmemwodn. Patient reports no complaints. Movement: normal. She [...] She is [facility]. Supervision of other high risk , antepartum 10/08/2017 PLAN OF CAREMD/OB APPOINTMENTSHow often should patient be evaluated? q 2 weeks from 32 to 36 weeks thenweekly until deliveryWork restrictions: noneFETAL EVALUATIONAntenatal surveillance: weekly BPPs starting at 32 weeks.Ultrasound: Serial growth ultrasounds every 4 weeks.DELIVERY PLANHospital: [facility] HospitalInduction at 39 weeks; CYTOTEC IOL 12-02-17 at 5 pm at [facility]. Pre-Procedure formdone (CG)GBS culture: neg 11/07/17Contraception: Considering LARC w/ oJaquim recommended Constipation during 10/08/2017 Improved Colace and [...] echo in [facility] POC reviewedShe would like her follow up and contraception with Dr. Ivan.The total patient time of the visit was 15 minutes, of which greater than 50% ofthe time was spent counseling and coordinating care. Normal [facility] Progress Noteon 11-22-2017 Manager Contracting Authentication Interface Message Text [facility] plan of care faxed to [facility] in event pt would arrive for urgent management. Normal [facility] Progress Noteon 11-21-2017 Manager Contracting Authentication Interface Message Text Routine VisitSubjective: Zuleika Villalta is being seen today for her obstetrical visit. She is at 32a5jpxlaekzbd. Patient reports that she went to [facility] last night due toconcerns for labor. [...] ultrasounds every 4 weeks.DELIVERY PLANHospital: [facility] HospitalInduction at 39 weeks; CYTOTEC IOL 12-02-17 at 5 pm at [facility]. Pre-Procedure formdone (CG)GBS culture: neg [...] scheduled for IOL on12/02/17.Oksana amado MD Normal [facility] Progress Noteon 11-12-2017 Manager Contracting Authentication Interface Message Text Call from [facility] that pt presented there in labor. [facility] plan of care and ACOGs faxed by Toan Chen. Provided after hours MFM number provided. Normal [facility] Group B Strep Cultureon 10-16 Group B Strep Culture Group B Strep Cult ure: No Group B Streptococci isolated. Source: VAG Collected: 11/07/17 09:00 Site: Vaginal/Rectal Received : 11/07/17 22:01Group B Strep Culture FINAL 11/10/17 08:34 No Group B Streptococci isolated. Normal [facility] Comment on above: Performed By: #### [facility] ####[address] [phone] Progress Noteon 11-07-2017 Manager Contracting Authentication Interface Message Text Routine VisitSubjective: Zuleika Villalta is being seen today for her obstetrical visit. She is at 14q1gdipuzjntv. Patient reports occasional nausea. No emesis. She [...] ultrasounds every 4 weeks.DELIVERY PLANHospital: [facility] HospitalInduction at 39 weeksGBS culture: collected and [...] OB visit and BPP.Oksana Amado MD Normal [facility] Progress Noteon 10-24-2017 Manager Contracting Authentication Interface Message Text Routine VisitSubjective: Zuleika [...] ultrasounds every 4 weeks.DELIVERY PLANHospital: [facility] HospitalInduction at 39 weeksGBS culture:Contraception: Considering LARC [...] counseling and coordinating care.Marco Antonio Antonio, Normal [facility] Progress Noteon 10-15-2017 Manager Contracting Authentication Interface Message Text Ped selection made. Updated prenatals Normal [facility] Progress Noteon 10-08-2017 Manager Contracting Authentication Interface Message Text Thank you for [...] size. There was a patent foramen ovale, kjgdvrfbq-zt-igsu shunt.Tricuspid valve:Normal tricuspid valve. There was normal [...] fetuses and in fetuses with CHD and mtnpxqwjsnebb23p88, the ratio being below 0.3 )Impression and recommendations.1) Abnormal 3-vessel view, ascending aorta was moderately dilated. 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 thymic thoracic ratio (TT-ratio)=0.1 ( TT-ratio 0.44 in normal fetuses and in fetuses with CHD and ogvtnpkumlnyf35f24, the ratio being below 0.3 )5) Normal [...] 60 minutes spent on the encounter. Normal [facility] Manager Contracting Authentication Interface Message Text Initial VisitSubjective: Zuleika [...] Current1 SAB 2015Obstetric CommentsNo D&C needed-miscarried very early.Objective: BP 110/72 [...] ultrasounds every 4 weeks.DELIVERY PLANHospital: [facility] HospitalInduction at 39 weeksGBS culture:Contraception:TDAP recommended Constipation [...] weeks for OB visit and BPP in Dayho[place].Oksana Amado MD Normal [facility] Cytogenomic Microarray Nivia sis of Bloodon 09-10-2017 Cytogenomic Microarray Analysis of Blood SEE BELOW Normal [facility] Comment on above: Result Comment: SPEC IMEN: BLOODCLINICAL INFORMATION: Learning disability[F81.9]TEST: CYTOGENOMIC MICROARRAY ANALYSISRESULT SUMMARY:Normal femaleNOMENCLATURE:arr(1-22,X)r7HOZWXBKFQSCIYT & COMMENTS:The cytogenomics microarray analysis indicated no [...] whole genome microarray analysis was performed the FDA-clearedNaonext(R) Dx platform, which contains approximately 2.7million markers, including 1,953,246 unique non-polymorphic copy numberprobes and 743,304 single nucleotide polymorphism (SNP) probes. Thegenome-wide functional resolution of this assay is approximately 25 kbfor deletions and 50 kb for duplications. This microarray andassociated software (Chromosome Analysis Suite Dx) were manufactured by[employer] and used by the Cytogenetics and Molecular DiagnosticsLaboratories of [facility] for the purpose ofidentifying DNA copy [...] further information regarding intendeduse and limitations, see [email or web address].Note: The Cytogenetics Laboratory has this patient's blood [...] for additional testing. 09/19/2017 BIGG GARCIA, PH.D., DAB, [facility] 09/19/2017 Performed By: #### M [facility] ####[facility] [address] [place], [place] [phone] MRI (SINGLE)on 018 MRI (SINGLE) MRI (SINGLE)CL [...] Dr. AJ CAMILO at 09/10/2017 10:21 Normal [facility] Progress Noteon 09-10-2017 Manager Contracting Authentication Interface Message Text The total patient time of the visit was 15 minutes, of which greater than 50% of the time was spent counseling and coordinating care. Normal [facility] Auto Diffon 09-03-2017 Basophils Auto #/vol (Bld) 0.1 E3/mcL Normal 0.0-0.2 [facility] Comment on above: Order Comment: Order Added by Discern Expert. Performed By: #### 2 [id number] ####[address] [place] [address] Basophils/100 WBC Auto (Bld) 0.5 % Normal 0.0-2.0 [facility] Comment on above: Order Comment: Order Added by Discern Expert. Performed By: #### 2 [id number] ####[address]EN [address] [place] [address] Eos Absolute 0.0 E3/mcL Normal 0.0-0.7 [facility] Comment on above: Order Comment: Order Added by Discern Expert. Performed By: #### 2 [id number] ####KADEN [address] [place] [address] Eosinophils/100 leukocytes 0.4 % Normal 0.0-11.0 [facility] Comment on above: Order Comment: Order Added by Discern Expert. Performed By: #### 2 [id number] ####[address] [place] [address] Lymphocytes 1.3 E3/mcL Normal 1.2-3.4 [facility] Comment on above: Order Comment: Order Added by Discern Expert. Performed By: #### 2 [id number] ####[address]EN [address] [place] [address] Lymphocytes/100 leukocytes 13.1 % Low 20.0-55.0 [facility] Comment on above: Order Comment: Order Added by Discern Expert. Performed By: #### 2 [id number] ####KADEN [address] [place] [address] [place] Absolute 0.4 E3/mcL Normal 0.0-0.7 [facility] Comment on above: Order Comment: Order Added by Discern Expert. Performed By: #### 2 [id number] ####KADEN [address] [place] [address] Monocytes/100 leukocytes 4.3 % Normal 0.0-10.0 [facility] Comment on above: Order Comment: Order Added by Discern Expert. Performed By: #### 2 [id number] ####[address] [place] [address] Neutro Absolute 8.4 E3/mcL High 1.4-6.5 [facility] Comment on above: Order Comment: Order Added by Discern Expert. Performed By: #### 2 [id number] ####[address] [place] [address] Neutro Auto 81.7 % High 37.0-75.0 [facility] Comment on above: Order Comment: Order Added by Discern Expert. Performed By: #### 2 701346 ####[address] [place] [address] CBC w/ Auto Diffon 8 Erythrocyte distribution width Auto Ratio (RBC) 13.1 % Normal 11.5-14.5 [facility] Comment on above: Performed By: #### 2 527772 ####[address] [place] [id number] Erythrocytes (RBC) 3.90 E6/mcL Normal 3.90-5.40 [facility] Comment on above: Performed By: #### 2 728796 ####[address] [place] [address] Hematocrit (HCT) 34.7 % Low 36.0-48.0 [facility] Comment on above: Performed By: #### 2 038260 ####[address] [place] [address] Hemoglobin mass conc (Bld) 11.8 g/dL Low 12.0-16.0 [facility] Comment on above: Performed By: #### 2 792994 ####[address] [place] [address] MCH 30.3 pg Normal 27.0-31.0 [facility] Comment on above: Performed By: #### 2 186594 ####[address] [place] [address] MCHC mass conc (RBC) 34.2 g/dL Normal 33.0-37.0 [facility] Comment on above: Performed By: #### 2 [id number] ####[address] [place] [address] MCV 88.8 fL Normal 78.0-100.0 [facility] Comment on above: Performed By: #### 2 101164 ####[address] [place] [id number] Platelet mean volume (PMV) 7.3 fL Low 7.4-11.0 [facility] Comment on above: Performed By: #### 2 678063 ####[address] [place] [address] Platelets 218 E3/mcL Normal 130-400 [facility] Comment on above: Performed By: #### 2 [id number] ####[address] [place] [address] WBC (Leukocytes) 10.2 E3/mcL Normal 3.6-11.0 [facility] Comment on above: Performed By: #### 2 [id number] ####[address] [place] [address] Gest Scr Glu 1 Hron 09-04-19 18 Glucose mass conc 113 mg/dL Normal 70-140 [facility] Comment on above: Performed By: #### 2 977152 ####[address] [place] [address] FISH Probeon 08-13-2017 Protein mass conc SEE BELOW Normal [facility] Comment on above: Result Comment: SPEC IMEN: BLOOD - [id number] INFORMATION:TEST: FISH Analysis of the [place]/VCFS Region [...] Metaphase images: 2The [employer] LSI DARREN Spectrum [place] Probe contains the DARREN gene (3'non-coding region of TUPLE1, [id number], and [id number]. The Vysis LSI ARSAspectrum Green Probe includes [...] performance characteristics determinedby the [facility]ogen[facility] of [facility]. It hasnot been cleared or approved by [...] laboratorytesting.REFERENCE: Rhonda NICOLE, Bindu E, Kristin M, [place] RV. Fluorescence in situhybridization detection of chromosome 22q11.2 microdeletions invelocardiofacial syndrome patients with widely variable manifestations. Am J Med [place] 66:250-256,1996. BIGG GARCIA, PH.D., [facility], [facility] 08/16/2017 Performed By: #### F MARIA ####[address] [phone] Progress Noteon 08-13-2017 Manager Contracting Authentication Interface Message Text Met with patient [...] findingsWork History: unemployed. Information on [facility] services given.Consent to share information with [facility] team, OB and line servicer signed. Pt plans to deliver in [place] with [place] [facility]. Currently with Dr. Shekhar Dyson.Service Rig Operator is undecided. [facility] list provided and discussed importance ofselection prior [...] was spent counseling and coordinating care. Normal [facility] Manager Contracting Authentication Interface Message Text Thank you for [...] size. There was a patent foramen ovale, kplfzhskt-to-dhbp shunt.Tricuspid valve:Normal tricuspid valve. There was normal [...] 60 minutes spent on the encounter. Normal [facility] Progress Noteon 07-18-2017 Manager Contracting Authentication Interface Message Text [facility] MATERNAL- MEDICINE CONSULTReferring/Requestin g Provider: Christian [...] no palpitations. She usually doesnot see a cutter operator helper, but did have a recent echo due [...] Stroke Maternal Grandmother Heart Disease Maternal Grandmother HI Clotting Disorder Maternal Grandfather Miscarriages / Stillbirths [...] as a child 07/18/2017 Consider evaluation with nephrology social worker to assess for any needs duringpregnancy or after. Will have genetic consult with [facility] evaluation. cardiac anomaly complicating , antepartum 07/18/2017 Dilated aortic root seen on ultrasound along with large umbilical cordvarix, dolichocephaly DW Dr. Zazueta, verbal order to refer to [facility] Will be scheduled with pediatric cardiology. Also, patient and family members have a history of learning disabilities,including an individual learning plan in school. She will talk to her familymembers and bring as much information as is available for her genetics consult.She has transportation to [place] and is willing to be seen there [facility].The total patient time of the visit was 30 minutes, of which was greater than50% of the time was spent counseling and coordinating care. Normal [facility] IGP W/hpv Rfx [id number] 05-07 Diagnosis: See Ref Lab Report Normal [facility] Comment on above: Order Comment: Thin Prep. Performed By: #### 2 [id number] ####KADEN BairdEjoNsqd3218 [place] [address] C Urineon 05-03-2017 C Urine Final Report: Normal skin alonso isolated Normal [facility] Comment on above: Performed By: #### 2 102093 ####KADEN BairdKmnCgub8369 [place] [address] RPRon 05-03-2017 RPR Ql Non-Reactive Normal Non-Reacti ve [facility] Comment on above: Performed By: #### 2 220128 ####KADEN BairdFzqBkak1343 [place] [address] Hep Bs Agon 05-02-2017 BSA (Body Surface Area) Negative Normal Negative [facility] Comment on above: Result Comment: Perf ormed At: CB [facility] Deycud[address] [place], [place] [id number] Vincent PhD Ph:[phone] Performed By: #### 2 057535 ####KADEN BairdOexCcim2998 [place] [id number] ABO/Rh Echoon 05-01-2017 ABO/Rh E Interp... Positive Normal [facility] Comment on above: Performed By: #### 2 302250 ####KADEN DzcWyqs1916 [place] [address] Antibody Screen Cap...on Screen Interp... Negative Normal [facility] Comment on above: Performed By: #### 2 210999 ####KADEN AxeSvrr8742 [place] [address] Auto Diffon 05-01-2017 Basophils Auto #/vol (Bld) 0.0 E3/mcL Normal 0.0-0.2 [facility] Comment on above: Order Comment: Order Added by Discern Expert. Performed By: #### 2 855059 ####KADEN Urinalysis Manual [address] [place] [address] 32566 Basophils/100 WBC Auto (Bld) 0.4 % Normal 0.0-2.0 [facility] Comment on above: Order Comment: Order Added by Discern Expert. Performed By: #### 2 961542 ####KADEN Urinalysis Manual [address] [place] [address] Eos Absolute 0.1 E3/mcL Normal 0.0-0.7 [facility] Comment on above: Order Comment: Order Added by Discern Expert. Performed By: #### 2 272631 ####KADEN Urinalysis Manual Lpfeizpp[address] [place] [address] Eosinophils/100 leukocytes 0.7 % Normal 0.0-11.0 [facility] Comment on above: Order Comment: Order Added by Discern Expert. Performed By: #### 2 461147 ####KADEN Urinalysis Manual Tqu[address]utv[address] [place] [address] 63176 Lymphocytes 1.8 E3/mcL Normal 1.2-3.4 [facility] Comment on above: Order Comment: Order Added by Discern Expert. Performed By: #### 2 403306 ####KADEN Urinalysis Manual [address]cozwidk[address] [place] [address] 20548 Lymphocytes/100 leukocytes 17.1 % Low 20.0-55.0 [facility] Comment on above: Order Comment: Order Added by Discern Expert. Performed By: #### 2 979393 ####KADEN Urinalysis Manual H[address]khlyqv[address] [place] [address] [place] Absolute 0.5 E3/mcL Normal 0.0-0.7 [facility] Comment on above: Order Comment: Order Added by Discern Expert. Performed By: #### 2 522772 ####KADEN Urinalysis Manual Qrywtmnisa0918[address] [place] [address] Monocytes/100 leukocytes 5.0 % Normal 0.0-10.0 [facility] Comment on above: Order Comment: Order Added by Discern Expert. Performed By: #### 2 305759 ####KADEN Urinalysis Manual Yowyhhnghe[address] [place] [address] Neutro Absolute 8.0 E3/mcL High 1.4-6.5 [facility] Comment on above: Order Comment: Order Added by Discern Expert. Performed By: #### 2 022725 ####KADEN [place] [address] Neutro Auto 76.8 % High 37.0-75.0 [facility] Comment on above: Order Comment: Order Added by Discern Expert. Performed By: #### 2 929991 ####KADEN Urinalysis Manual Uhygpqbzhs2239[address] [place] [address] CBC w/ Auto Diffon 7 Erythrocyte distribution width Auto Ratio (RBC) 15.2 % High 11.5-14.5 [facility] Comment on above: Performed By: #### 2 681028 ####KADEN Urinalysis Manual Lgnmrkzisn[address] [place] [address] Erythrocytes (RBC) 4.90 E6/mcL Normal 3.90-5.40 [facility] Comment on above: Performed By: #### 2 304675 ####KADEN Urinalysis Manual Szhwqirsfn[address] [place] [address] Hematocrit (HCT) 41.1 % Normal 36.0-48.0 [facility] Comment on above: Performed By: #### 2 616368 ####KADEN Urinalysis Manual Jtequybqzb[address] [place] [address] Hemoglobin mass conc (Bld) 13.5 g/dL Normal 12.0-16.0 [facility] Comment on above: Performed By: #### 2 908631 ####KADEN Urinalysis Manual Dzmjchjvku[address] [place] [address] MCH 27.5 pg Normal 27.0-31.0 [facility] Comment on above: Performed By: #### 2 293296 ####KADEN Urinalysis Manual Rowfqksgwn[address] [place] [address] MCHC mass conc (RBC) 32.8 g/dL Low 33.0-37.0 [facility] Comment on above: Performed By: #### 2 041562 ####KADEN Urinalysis Manual Lkreeeatvh[address] [place] [address] MCV 83.9 fL Normal 78.0-100.0 [facility] Comment on above: Performed By: #### 2 116434 ####KADEN Urinalysis Manual Adbazupctf[address] [place] [address] Platelet mean volume (PMV) 8.0 fL Normal 7.4-11.0 [facility] Comment on above: Performed By: #### 2 233856 ####KADEN Urinalysis Manual Mgqccidfht[address] [place] [address] Platelets 246 E3/mcL Normal 130-400 [facility] Comment on above: Performed By: #### 2 302928 ####KADEN Urinalysis Manual Wyibvnkjlf[address] [place], [place] [address] WBC (Leukocytes) 10.4 E3/mcL Normal 3.6-11.0 [facility] Comment on above: Performed By: #### 2 966451 ####KADEN Urinalysis Manual Gcfamtghph[address] [place] [address] Chlamydia GC by PCRon 2016 Chlamydia by PCR. Not Detected Normal Not Detected [facility] Comment on above: Result Comment: Xper t CT/NG Assay performance has not been evaluated in patients less than 14 years of age. Performed By: #### 2 578748 ####KADEN BairdGtaIjxg9560 [place] 1066905 Gonorrhoeae by PCR Not Detected Normal Not Detected [facility] Comment on above: Result Comment: Xper t CT/NG Assay performance has not been evaluated in patients less than 14 years of age. Performed By: #### 2 236505 ####KADEN BairdGqmIglr8368 [place] [address] HIV-1/2 Ag/Abon 05-01-2017 HIV-1/2 Ag/Ab Non-Reactive Normal Non-Reacti ve [facility] Comment on above: Performed By: #### 2 858227 ####KADEN Urinalysis Manual Lvfunrtq[address] [place] [address] 34023 Rubella IgG Lvlon 05-01-2017 Rubella IgG Lvl 50.8 (POS) Normal [facility] Comment on above: Result Comment: <10I U/ml NON REACTIVE: NOT [id number] IU/ml RUBELLA SPECIFIC AB PRESENT, EVALUATEFURTHER TO DETERMINE IMMUNE STATUS >15 IU/ml REACTIVE, IMMUNE Performed By: #### 2 170650 ####KADEN FiuCmcp8639 [place] 1066905 Auto Diffon 04-22-2017 Basophils Auto #/vol (Bld) 0.1 E3/mcL Normal 0.0-0.2 [facility] Comment on above: Order Comment: Order Added by Discern Expert. Performed By: #### 2 967132 ####KADEN Urinalysis Manual X[address]pqzbszx[address] [place] [address] 92395 Basophils/100 WBC Auto (Bld) 0.6 % Normal 0.0-2.0 [facility] Comment on above: Order Comment: Order Added by Discern Expert. Performed By: #### 2 923029 ####KADEN Urinalysis Manual [address]qq[address] [place] [address] 27970 Eos Absolute 0.0 E3/mcL Normal 0.0-0.7 [facility] Comment on above: Order Comment: Order Added by Discern Expert. Performed By: #### 2 291576 ####KADEN Urinalysis Manual Gduecqiful[address] [place] [address] 33957 Eosinophils/100 leukocytes 0.2 % Normal 0.0-11.0 [facility] Comment on above: Order Comment: Order Added by Discern Expert. Performed By: #### 2 196424 ####KADEN Urinalysis Manual Lsrdfcybjy[address] [place] [address] 36175 Lymphocytes 1.5 E3/mcL Normal 1.2-3.4 [facility] Comment on above: Order Comment: Order Added by Discern Expert. Performed By: #### 2 047419 ####KADEN Urinalysis Manual Rmyktywigs[address] [place] [address] 88130 Lymphocytes/100 leukocytes 10.8 % Low 20.0-55.0 [facility] Comment on above: Order Comment: Order Added by Discern Expert. Performed By: #### 2 427531 ####KADEN Urinalysis Manual Hhrabprmlw[address] [place] [address] [place] Absolute 0.6 E3/mcL Normal 0.0-0.7 [facility] Comment on above: Order Comment: Order Added by Discern Expert. Performed By: #### 2 179963 ####KADEN Urinalysis Manual Zurfnxldgq2512[address] [place] [address] Monocytes/100 leukocytes 4.4 % Normal 0.0-10.0 [facility] Comment on above: Order Comment: Order Added by Discern Expert. Performed By: #### 2 218974 ####KADEN Urinalysis Manual Vidzbexpkw[address] [place] [address] Neutro Absolute 11.3 E3/mcL High 1.4-6.5 [facility] Comment on above: Order Comment: Order Added by Discern Expert. Performed By: #### 2 947940 ####KADEN [place] [address] Neutro Auto 84.0 % High 37.0-75.0 [facility] Comment on above: Order Comment: Order Added by Discern Expert. Performed By: #### 2 913174 ####KADEN Urinalysis Manual Jnovhbpquw[address] [place] [address] BMPon 04-22-2017 BUN/Creatinine Ratio Unable to calc Normal 5.4-30.0 [facility] Comment on above: Performed By: #### 2 413710 ####KADEN Urinalysis Manual Jdgyuefrve[address] [place] [address] Creatinine mg/dL Low 0.6-1.3 [facility] Comment on above: Performed By: #### 2 793610 ####KADEN Urinalysis Manual Bugzelcxyz[address] [place] [address] Urea nitrogen 7 mg/dL Normal 7-18 [facility] Comment on above: Performed By: #### 2 531488 ####KADEN Urinalysis Manual Hhhsxlunln8723 [place] [address] Calcium 9.6 mg/dL Normal 8.4-10.2 [facility] Comment on above: Performed By: #### 2 462091 ####KDAEN Urinalysis Manual Olrgmuplzz4230 [place] [address] Chloride 103 mmol/L Normal 98-107 [facility] Comment on above: Performed By: #### 2 431841 ####KADEN Urinalysis Manual Dkonmffjbm[address] [place] [address] CO2 21.7 mmol/L Low 24.0-30.0 [facility] Comment on above: Performed By: #### 2 569539 ####KADEN Urinalysis Manual Zezxphisgd[address] [place] [address] Glucose mass conc 89 mg/dL Normal 70-99 [facility] Comment on above: Performed By: #### 2 330372 ####KADEN Urinalysis Manual Wgxdtgijgi[address] [place] [address] Potassium molar conc 3.6 mmol/L Normal 3.5-5.1 [facility] Comment on above: Performed By: #### 2 663133 ####KADEN Urinalysis Manual Aupnmcwkqi[address] [place] [address] Sodium 136 mmol/L Normal 136-145 [facility] Comment on above: Performed By: #### 2 317851 ####KADEN Urinalysis Manual Buzzgluqct[address] [place], [place] [address] CBC w/ Auto Diffon 7 Erythrocyte distribution width Auto Ratio (RBC) 14.8 % High 11.5-14.5 [facility] Comment on above: Performed By: #### 2 826941 ####KADEN Urinalysis Manual Phfpcglxdz4139 [place] 10669[address] Erythrocytes (RBC) 4.96 E6/mcL Normal 3.90-5.40 [facility] Comment on above: Performed By: #### 2 503166 ####KADEN Urinalysis Manual Qbplgcoyxi7331 [place] [address] Hematocrit (HCT) 40.9 % Normal 36.0-48.0 [facility] Comment on above: Performed By: #### 2 980885 ####KADEN Urinalysis Manual Ezeiixypux[address] [place] [address] Hemoglobin mass conc (Bld) 13.5 g/dL Normal 12.0-16.0 [facility] Comment on above: Performed By: #### 2 300484 ####KADEN Urinalysis Manual Kzzytvrjos39[address] [place] [address] MCH 27.2 pg Normal 27.0-31.0 [facility] Comment on above: Performed By: #### 2 737518 ####KADEN Urinalysis Manual Ifeifawhxr[address] [place] [address] MCHC mass conc (RBC) 33.0 g/dL Normal 33.0-37.0 [facility] Comment on above: Performed By: #### 2 038131 ####KADEN Urinalysis Manual Sozasdysdv[address] [place] [address] MCV 82.4 fL Normal 78.0-100.0 [facility] Comment on above: Performed By: #### 2 683453 ####KADEN Urinalysis Manual Cwxnehgcvd[address] [place] [address] Platelet mean volume (PMV) 8.0 fL Normal 7.4-11.0 [facility] Comment on above: Performed By: #### 2 111195 ####KADEN Urinalysis Manual Kaahmmehlg[address] [place] [address] Platelets 237 E3/mcL Normal 130-400 [facility] Comment on above: Performed By: #### 2 939019 ####KADEN Urinalysis Manual Mxqdyvfezo[address] [place] [address] WBC (Leukocytes) 13.5 E3/mcL High 3.6-11.0 [facility] Comment on above: Performed By: #### 2 863935 ####KADEN Urinalysis Manual Wrqhzvggkx[address] [place] [address] UA Completeon 04-22-2017 UA Blood Negative Normal Negative [facility] Comment on above: Performed By: #### 2 055256 ####KADEN Urinalysis Manual Cnddcgcarn3957 [place] [address] UA Ascorbic Acid 40 mg/dL High <=19 [facility] Comment on above: Performed By: #### 2 179879 ####KADEN Urinalysis Manual Pgttrjdwgf[address] [place] [address] UA Bacteria 3+ /HPF Abnormal None [facility] Comment on above: Performed By: #### 2 636692 ####KADEN Urinalysis Manual Ntljjonbuu[address] [place] [address] UA Clarity SltCloudy Abnormal Clear [facility] Comment on above: Performed By: #### 2 107072 ####KADEN Urinalysis Manual Ujwhocwok[address] [place] [address] UA Leuk Est Negative Normal Negative [facility] Comment on above: Performed By: #### 2 283486 ####KADEN Urinalysis Manual Homyhsquox4925[address] [place] [address] UA Mucous Few Abnormal Trace [facility] Comment on above: Performed By: #### 2 756738 ####KADEN Urinalysis Manual Cuerincduu[address] [place] [address] UA Nitrite Negative Normal Negative [facility] Comment on above: Performed By: #### 2 541356 ####KADEN Urinalysis Manual Fnczeudkrh[address] [place] [address] UA pH 8.0 Normal 4.6-8.0 [facility] Comment on above: Performed By: #### 2 459573 ####KADEN Urinalysis Manual Dddtblrqzt[address] [place] [address] UA Protein Negative Normal Negative [facility] Comment on above: Performed By: #### 2 406237 ####KADEN Urinalysis Manual Oumghauiof[address] [place] [address] UA Spec Grav 1.012 Normal 1.003-1.03 0 [facility] Comment on above: Performed By: #### 2 937680 ####KADEN Urinalysis Manual Qjhskohbpq3673 [place] [address] UA Squam Epithelial 0-5 Normal 0-5 [facility] Comment on above: Performed By: #### 2 074291 ####KADEN Urinalysis Manual Aleqcwbpyp7095 [place] [address] UA Urobilinogen Negative Normal [facility] Comment on above: Performed By: #### 2 804794 ####KADEN Urinalysis Manual Xydmffocrs0060 [place] [address] UA WBC 0-5 Normal 0-5 [facility] Comment on above: Performed By: #### 2 773166 ####KADEN Urinalysis Manual Zghlgkszcx9236 [place] [address] Urine, color Yellow Normal Yellow [facility] Comment on above: Performed By: #### 2 932637 ####KADEN Urinalysis Manual [address]spufqeu[address] [place] [address] 31315 Urine, glucose Negative Normal Negative [facility] Comment on above: Performed By: #### 2 902333 ####KADEN Urinalysis Manual Hvmuskokpn[address] [place] [address] Urine, ketones presence 1+ Abnormal Negative [facility] Comment on above: Performed By: #### 2 979498 ####KADEN Urinalysis Manual Svhxxcepzy50[address] [place] [address] Urine, urobilinogen Negative Normal Negative [facility] Comment on above: Performed By: #### 2 059381 ####KADEN Urinalysis Manual [address]fpszlosxx[address] [place] [address] 12982 eGFRon 04-22-2017 eGFR AA >60 Normal [facility] Comment on above: Order Comment: Order added by Discern Expert. Performed By: #### 2 178688 ####KADEN Urinalysis Manual Xyqtfmgaau6202 [place] [address] eGFR (non-black) mL/min/{1.73_m2} Normal [facility] Comment on above: Order Comment: Order added by Discern Expert. Performed By: #### 2 006324 ####KADEN Urinalysis Manual Wpciatziws1020 [place] [address] C Urineon 04-20-2017 C Urine Final Report: Normal skin alonso isolated Normal [facility] Comment on above: Performed By: #### 2 958358 ####KADEN Urinalysis Manual Wmfseecvzf0280 [place] [address] BMPon 04-18-2017 BUN/Creatinine Ratio 15.0 ratio Normal 5.4-30.0 [facility] Comment on above: Performed By: #### 2 579265 ####KADENMorelia BairdTcnIkhy9775 [place] [address] Creatinine 0.6 mg/dL Normal 0.6-1.3 [facility] Comment on above: Performed By: #### 2 656367 ####KADEN SkhGmhd8477 [place] [address] Urea nitrogen 9 mg/dL Normal 7-18 [facility] Comment on above: Performed By: #### 2 054791 ####KADEN BairdAtaFsca8966 [place] [address] Calcium 9.6 mg/dL Normal 8.4-10.2 [facility] Comment on above: Performed By: #### 2 563570 ####KADENMorelia BairdSlsDnww7141 [place] [address] Chloride 102 mmol/L Normal 98-107 [facility] Comment on above: Performed By: #### 2 162644 ####KADEN TpeHjav4520 [place] [address] CO2 23.3 mmol/L Low 24.0-30.0 [facility] Comment on above: Performed By: #### 2 174478 ####KADENMorelia BairdUpfDuqx6384 [place] [address] Glucose mass conc 93 mg/dL Normal 70-99 [facility] Comment on above: Performed By: #### 2 904539 ####KADENMorelia BairdHduVyqx3722 [place] [address] Potassium molar conc 3.5 mmol/L Normal 3.5-5.1 [facility] Comment on above: Performed By: #### 2 763923 ####KADENMorelia BairdTveYech1604 [place] [address] Sodium 136 mmol/L Normal 136-145 [facility] Comment on above: Performed By: #### 2 898241 ####KADEN HrhYdwd3165 [place] [address] UA Completeon 04-18-2017 UA Blood Negative Normal Negative [facility] Comment on above: Performed By: #### 2 372308 ####KADEN Urinalysis Manual Atoypgmvoj[address] [place] [address] UA Amorph Chastity 2+ /HPF Abnormal None [facility] Comment on above: Performed By: #### 2 247340 ####KADEN Urinalysis Manual Yguiaszclu[address] [place] [address] UA Ascorbic Acid 40 mg/dL High <=19 [facility] Comment on above: Performed By: #### 2 401530 ####KADEN Urinalysis Manual Sbmiezmcvq18[address] [place] [address] UA Clarity Cloudy Abnormal Clear [facility] Comment on above: Performed By: #### 2 378167 ####KADEN Urinalysis Manual Aidayfnsbs[address] [place] [address] UA Leuk Est Negative Normal Negative [facility] Comment on above: Performed By: #### 2 465948 ####KADEN Urinalysis Manual Xuvwikejwb[address] [place] [address] UA Mucous Trace Abnormal Trace [facility] Comment on above: Performed By: #### 2 253422 ####KADEN Urinalysis Manual Qetyaalhzo[address] [place] [address] UA Nitrite Negative Normal Negative [facility] Comment on above: Performed By: #### 2 322369 ####KADEN Urinalysis Manual Uvzhaqmyrs[address] [place] [address] UA pH 7.0 Normal 4.6-8.0 [facility] Comment on above: Performed By: #### 2 537703 ####KADEN Urinalysis Manual Vafpdlgxmc[address] [place] [address] UA Protein Negative Normal Negative [facility] Comment on above: Performed By: #### 2 588098 ####KADEN Urinalysis Manual Xlqtwlbzed[address] [place] [address] UA Spec Grav 1.018 Normal 1.003-1.03 0 [facility] Comment on above: Performed By: #### 2 088687 ####KADEN Urinalysis Manual Wwoqesasmj0427 [place] [address] UA Squam Epithelial 0-5 Normal 0-5 [facility] Comment on above: Performed By: #### 2 609041 ####KADEN Urinalysis Manual Deyltyhaar3475 [place] [address] UA Urobilinogen Negative Normal [facility] Comment on above: Performed By: #### 2 422593 ####KADEN Urinalysis Manual Yzxqyfgxzv[address] [place] [address] Urine, color Yellow Normal Yellow [facility] Comment on above: Performed By: #### 2 995613 ####KADEN Urinalysis Manual Gymjbwxlul[address] [place] [address] Urine, glucose Negative Normal Negative [facility] Comment on above: Performed By: #### 2 639092 ####KADEN Urinalysis Manual Skldroshtf[address] [place] [address] Urine, ketones presence 2+ Abnormal Negative [facility] Comment on above: Performed By: #### 2 658387 ####KADEN Urinalysis Manual Bdplzhngkf[address] [place] [address] Urine, urobilinogen Negative Normal Negative [facility] Comment on above: Performed By: #### 2 484304 ####KADEN Urinalysis Manual Ivutlxgxbq153403 [address] [place] [address] eGFRon 04-18-2017 eGFR (non-black) mL/min/{1.73_m2} Normal [facility] Comment on above: Order Comment: Order added by Discern Expert. Performed By: #### 1 [id number] ####KADEN HapWhla1265 [place] [address] eGFR AA >60 Normal [facility] Comment on above: Order Comment: Order added by Discern Expert. Performed By: #### 1 [id number] ####KADEN LdyFvof1707 [place] [address] Auto Diffon 04-11-2017 Basophils Auto #/vol (Bld) 0.1 E3/mcL Normal 0.0-0.2 [facility] Comment on above: Order Comment: Order Added by Discern Expert. Performed By: #### 2 [id number] ####KADEN BairdZikGuxm1122 [place] [address] Basophils/100 WBC Auto (Bld) 0.7 % Normal 0.0-2.0 [facility] Comment on above: Order Comment: Order Added by Discern Expert. Performed By: #### 2 [id number] ####KADEN BairdGktIiwl7669 [place] [address] Eos Absolute 0.0 E3/mcL Normal 0.0-0.7 [facility] Comment on above: Order Comment: Order Added by Discern Expert. Performed By: #### 2 [id number] ####KADEN BairdJeeCnfj9270 [place] [address] Eosinophils/100 leukocytes 0.1 % Normal 0.0-11.0 [facility] Comment on above: Order Comment: Order Added by Discern Expert. Performed By: #### 2 [id number] ####KADEN BairdZkzPvnb8410 [place] [address] Lymphocytes 1.5 E3/mcL Normal 1.2-3.4 [facility] Comment on above: Order Comment: Order Added by Discern Expert. Performed By: #### 2 [id number] ####KADEN BairdPimZjhs6678 [place] [address] Lymphocytes/100 leukocytes 17.2 % Low 20.0-55.0 [facility] Comment on above: Order Comment: Order Added by Discern Expert. Performed By: #### 2 [id number] ####KADEN BairdJbrXrmx2759 [place] [address] [place] Absolute 0.6 E3/mcL Normal 0.0-0.7 [facility] Comment on above: Order Comment: Order Added by Discern Expert. Performed By: #### 2 [id number] ####KADEN BairdJjfGmje5196 [place] [address] Monocytes/100 leukocytes 6.6 % Normal 0.0-10.0 [facility] Comment on above: Order Comment: Order Added by Discern Expert. Performed By: #### 2 [id number] ####KADEN EbmMmla0418 [place] [address] Neutro Absolute 6.7 E3/mcL High 1.4-6.5 [facility] Comment on above: Order Comment: Order Added by Discern Expert. Performed By: #### 2 096611 ####KADEN Luceroo1025 [place] [address] Neutro Auto 75.4 % High 37.0-75.0 [facility] Comment on above: Order Comment: Order Added by Discern Expert. Performed By: #### 2 [id number] ####KADEN Luceroo1025 [place] [address] BMPon 04-11-2017 BUN/Creatinine Ratio 12.9 ratio Normal 5.4-30.0 [facility] Comment on above: Performed By: #### 2 [id number] ####KADEN JrmOusr6571 [place] [address] Creatinine 0.7 mg/dL Normal 0.6-1.3 [facility] Comment on above: Performed By: #### 2 [id number] ####KADENMorelia BaiUlqHwit2682 [place] [address] Urea nitrogen 9 mg/dL Normal 7-18 [facility] Comment on above: Performed By: #### 2 [id number] ####KADEN NodXjnw2450 [place] [address] Calcium 9.5 mg/dL Normal 8.4-10.2 [facility] Comment on above: Performed By: #### 2 943003 ####KADENMorelia BaiSeeWayj3801 [place] [address] Chloride 105 mmol/L Normal 98-107 [facility] Comment on above: Performed By: #### 2 [id number] ####KADENMorelia BairdNooJrco7240 [place] [address] CO2 22.5 mmol/L Low 24.0-30.0 [facility] Comment on above: Performed By: #### 2 [id number] ####KADENMorelia BairdMurZapq9630 [place] [address] Glucose mass conc 92 mg/dL Normal 70-99 [facility] Comment on above: Performed By: #### 2 [id number] ####KADENMorelia BaiMehTcfs9827 [place] [address] Potassium molar conc 3.6 mmol/L Normal 3.5-5.1 [facility] Comment on above: Performed By: #### 2 [id number] ####KADENMorelia BairdGfsOsuu9582 [place] [address] Sodium 137 mmol/L Normal 136-145 [facility] Comment on above: Performed By: #### 2 [id number] ####KADENMorelia aBirdRzlAmmc4371 [place] [address] BhCG Quanton 04-11-2017 Beta hCG Qnt 8564.0 mIU/m Normal [facility] Comment on above: Result Comment: FEMA LE (NON-) & MALE <3 BORDERLINE 3 - 5 SUGGEST REPEAT TESTING FEMALE () 1 D - 1 WK 5 - 50 1 - 2 WK 50 - 500 2 - 3 WK 100 - 5000 3 - 4 WK 500 - 18882 4 - 5 WK 1000 - 53772 5 - 6 WK 78313 - 301285 6 - 8 WK 46558 - 093609 2 - 3 [place] [address] - 180806 Performed By: #### 2 [id number] ####KADENMorelia BairdSqkLdsa9933 [place] [address] CBC w/ Auto Diffon 7 Erythrocyte distribution width Auto Ratio (RBC) 13.9 % Normal 11.5-14.5 [facility] Comment on above: Performed By: #### 2 [id number] ####KADENMorelia LuceroQxjZzhj7464 [place] [address] Erythrocytes (RBC) 4.63 E6/mcL Normal 3.90-5.40 [facility] Comment on above: Performed By: #### 2 769659 ####KADENMorelia BairdNulBeii3583 [place] [address] Hematocrit (HCT) 38.2 % Normal 36.0-48.0 [facility] Comment on above: Performed By: #### 2 051138 ####KADEN BairdKzhMpow7023 [place] [address] Hemoglobin mass conc (Bld) 12.6 g/dL Normal 12.0-16.0 [facility] Comment on above: Performed By: #### 2 258067 ####KADENMorelia LuceroFclCdir9687 [place] [address] MCH 27.2 pg Normal 27.0-31.0 [facility] Comment on above: Performed By: #### 2 [id number] ####KADEN Luceroo1025 [place] [address] MCHC mass conc (RBC) 33.0 g/dL Normal 33.0-37.0 [facility] Comment on above: Performed By: #### 2 [id number] ####KADEN Lcueroo1025 [place] [address] MCV 82.6 fL Normal 78.0-100.0 [facility] Comment on above: Performed By: #### 2 [id number] ####KADEN Luceroo1025 [place] [id number] Platelet mean volume (PMV) 8.0 fL Normal 7.4-11.0 [facility] Comment on above: Performed By: #### 2 [id number] ####KADEN Luceroo[address] [place] 10669[address] Platelets 233 E3/mcL Normal 130-400 [facility] Comment on above: Performed By: #### 2 [id number] ####KADEN Luceroo1025 [place] [address] WBC (Leukocytes) 9.0 E3/mcL Normal 3.6-11.0 [facility] Comment on above: Performed By: #### 2 366461 ####KADEN Luceroo10[address] [place] 10669[address] UA Completeon 04-11-2017 UA Blood Negative Normal Negative [facility] Comment on above: Result Comment: High concentration of Ascorbic Acid present in urine. This may cause False Negative Occ Blood. Review microscopic results and patient's clinical symptoms. Performed By: #### 8 [id number] ####KADEN Urinalysis Automated Hohovwlefb1876 [place] [address] UA Amorph Chastity 1+ /HPF Abnormal None [facility] Comment on above: Performed By: #### 8 [id number] ####KADEN Urinalysis Automated Rracxisjjk0851 [place] [address] UA Ascorbic Acid 40 mg/dL High <=19 [facility] Comment on above: Performed By: #### 8 [id number] ####KADEN Urinalysis Automated Tseunegjwu0791 [place] [address] UA Bacteria Trace Abnormal None [facility] Comment on above: Performed By: #### 8 [id number] ####KADEN Urinalysis Automated Isxnjkrfev9114 [place] [address] UA Clarity Cloudy Abnormal Clear [facility] Comment on above: Performed By: #### 8 [id number] ####KADEN Urinalysis Automated [address] [place] [address] UA Leuk Est Negative Normal Negative [facility] Comment on above: Performed By: #### 8 [id number] ####KADEN Urinalysis Automated Jdclrzaeqo[address] [place] [address] UA Mucous Few Abnormal Trace [facility] Comment on above: Performed By: #### 8 [id number] ####KADEN Urinalysis Automated Zvohmbrsuc[address] [place] [address] UA Nitrite Negative Normal Negative [facility] Comment on above: Performed By: #### 8 [id number] ####KADEN Urinalysis Automated B[address]ows[address] [place] [address] UA pH 7.0 Normal 4.6-8.0 [facility] Comment on above: Performed By: #### 8 [id number] ####KADEN Urinalysis Automated X[address]cyv[address] [place] [address] UA Protein Negative Normal Negative [facility] Comment on above: Performed By: #### 8 [id number] ####KADEN Urinalysis Automated Ndrkbnlbul0732 [place] 1066905 UA Spec Grav 1.025 Normal 1.003-1.03 0 [facility] Comment on above: Performed By: #### 8 [id number] ####KADEN Urinalysis Automated Pwivcqxqaf[address] [place], [place] [address] UA Squam Epithelial 5-10 Abnormal 0-5 [facility] Comment on above: Performed By: #### 8 [id number] ####KADEN Urinalysis Automated Ywdkadexre[address] [place] [address] UA Urobilinogen 2.0 mg/dL Abnormal [facility] Comment on above: Performed By: #### 8 [id number] ####KADEN Urinalysis Automated Efbxedqifj7462 [place] [address] Urine, color Yellow Normal Yellow [facility] Comment on above: Performed By: #### 8 [id number] ####KADEN Urinalysis Automated Wnxhbkprtg1003 [place] [address] Urine, erythrocytes 0-3 Normal 0-3 [facility] Comment on above: Performed By: #### 8 [id number] ####KADEN Urinalysis Automated Yncfwxinui4577 [place] [address] Urine, glucose Negative Normal Negative [facility] Comment on above: Performed By: #### 8 [id number] ####KADEN Urinalysis Automated [address]jeaa[address] [place] [address] Urine, ketones presence 2+ Abnormal Negative [facility] Comment on above: Performed By: #### 8 [id number] ####KADEN Urinalysis Automated U[address]okdswkb[address] [place] [address] Urine, urobilinogen Negative Normal Negative [facility] Comment on above: Performed By: #### 8 [id number] ####KADEN Urinalysis Automated Lzwrazmrqt9288 [place] [address] eGFRon 04-11-2017 eGFR (non-black) mL/min/{1.73_m2} Normal [facility] Comment on above: Order Comment: Order added by Discern Expert. Performed By: #### 1 [id number] ####KADEN XkqDxby6664 [place] [address] eGFR AA >60 Normal [facility] Comment on above: Order Comment: Order added by Discern Expert. Performed By: #### 1 [id number] ####KADEN YfmAyil2382 [place] [address] U BhCG Qlton 03-20-2017 HCG.beta subunit Qn Negative Normal Neg [facility] Comment on above: Performed By: #### 2 [id number] ####KADEN Urinalysis Manual Bmsllfkppz9832 [place] [address]69[address] UA Completeon 03-20-2017 UA Blood Negative Normal Negative [facility] Comment on above: Performed By: #### 8 [id number] ####KADEN Urinalysis Automated Uejbxosqyu2374 [place] [address] UA Amorph Chastity 1+ /HPF Abnormal None [facility] Comment on above: Performed By: #### 8 [id number] ####KADEN Urinalysis Automated Doaihxfpqd4176 [place] [address] UA Bacteria 2+ /HPF Abnormal None [facility] Comment on above: Performed By: #### 8 [id number] ####KADEN Urinalysis Automated Wvsqqkwfgy[address] [place] [address] UA Clarity Cloudy Abnormal Clear [facility] Comment on above: Performed By: #### 8 [id number] ####KADEN Urinalysis Automated Gwgzlldlqp[address] [place] [address] UA Leuk Est 1+ Abnormal Negative [facility] Comment on above: Performed By: #### 8 [id number] ####KADEN Urinalysis Automated Heiq[address]qdp[address] [place] [address] UA Mucous Occasional Abnormal Trace [facility] Comment on above: Performed By: #### 8 [id number] ####KADEN Urinalysis Automated Xrwy[address]lszs[address] [place] [address] UA Nitrite Negative Normal Negative [facility] Comment on above: Performed By: #### 8 [id number] ####KADEN Urinalysis Automated Tlxhaxyevx[address] [place] [address] UA pH 6.0 Normal 4.6-8.0 [facility] Comment on above: Performed By: #### 8 [id number] ####KADEN Urinalysis Automated Q[address]ob[address]vfr[address] [place] [address] UA Protein 1+ Abnormal Negative [facility] Comment on above: Performed By: #### 8 [id number] ####KADEN Urinalysis Automated Qxjkmrrhkr[address] [place] [address] UA Spec Grav 1.019 Normal 1.003-1.03 0 [facility] Comment on above: Performed By: #### 8 [id number] ####KADEN Urinalysis Automated [address]fpf[address] [place] [address] UA Squam Epithelial 5-10 Abnormal 0-5 [facility] Comment on above: Performed By: #### 8 [id number] ####KADEN Urinalysis Automated Aooddpkzyr4272 [place] [address] UA Urobilinogen Negative Normal [facility] Comment on above: Performed By: #### 8 [id number] ####KADEN Urinalysis Automated Jtzwfadhsy3543 [place] [address] UA WBC >50 Abnormal 0-5 [facility] Comment on above: Performed By: #### 8 [id number] ####KADEN Urinalysis Automated Oblbqbkpak3607 [place] [address] Urine, color Yellow Normal Yellow [facility] Comment on above: Performed By: #### 8 [id number] ####KADEN Urinalysis Automated Mapmcvgsha3765 [place] [address] Urine, erythrocytes 5-10 Abnormal 0-3 [facility] Comment on above: Performed By: #### 8 [id number] ####KADEN Urinalysis Automated Rzjxmwzfsv8061 [place] [address] Urine, glucose Negative Normal Negative [facility] Comment on above: Performed By: #### 8 [id number] ####KADEN Urinalysis Automated Fntyyfssjr6582 [place] [address] Urine, ketones presence Negative Normal Negative [facility] Comment on above: Performed By: #### 8 [id number] ####KADEN Urinalysis Automated Mxroiafwjo3216 [place] [address] Urine, urobilinogen Negative Normal Negative [facility] Comment on above: Performed By: #### 8 [id number] ####KADEN Urinalysis Automated Ffufxlgygt1828 [place] [address] Vital Signs Date Time Vital Sign Value Performing Clinician Facility 07-18-2023 10:30-0500 Body mass index (BMI) [Ratio] 26.7 kg/m2 [facility] [employer] Work Phone: [facility] 07-18-2023 10:30-0500 Body weight 75.03 kg [facility] Diana DO Work Phone: [facility] 07-18-2023 10:30-0500 Diastolic blood pressure 68 mm[Hg] Cuong Diana DO Work Phone: [facility] 07-18-2023 10:30-0500 Systolic blood pressure 106 mm[Hg] Cuong Diana DO Work Phone: [facility] 02-11-2023 14:13-0400 Body height 165.1 cm PA-Ventura Wyatt Work Phone: [facility] 02-11-2023 14:13-0400 Body temperature 97.9 [degF] PA-C Andie Wyatt Work Phone: [facility] 02-11-2023 14:13-0400 Body weight 70.55 kg FERMIN-Ventura Wyatt Work Phone: [facility] 02-11-2023 14:13-0400 Diastolic blood pressure 80 mm[Hg] PA-Ventura Wyatt Work Phone: [facility] 02-11-2023 14:13-0400 Heart rate 60 /min FERMIN-Ventura Wyatt Work Phone: [facility] 02-11-2023 14:13-0400 Respiratory rate 15 /min FERMIN-Ventura Wyatt Work Phone: [facility] 02-11-2023 14:13-0400 SaO2% (BldA) [Mass fraction] 99 % SADAF Wyatt Work Phone: [facility] 02-11-2023 14:13-0400 Systolic blood pressure 134 mm[Hg] FERMIN-Ventura Wyatt Work Phone: [facility] 02-08-2023 12:36-0400 Body height 165.1 cm PA-Ventura Wyatt Work Phone: [facility] 02-08-2023 12:36-0400 Body temperature 98.2 [degF] FERMIN-Ventura Wyatt Work Phone: [facility] 02-08-2023 12:36-0400 Body weight 72.57 kg SADAF Wyatt Work Phone: [facility] 02-08-2023 12:36-0400 Diastolic blood pressure 84 mm[Hg] PA-C Andie Wyatt Work Phone: [facility] 02-08-2023 12:36-0400 Heart rate 74 /min PA-Ventura Wyatt Work Phone: [facility] 02-08-2023 12:36-0400 Respiratory rate 15 /min PA-Ventura Wyatt Work Phone: [facility] 02-08-2023 12:36-0400 SaO2% (BldA) [Mass fraction] 98 % PA-C Andie Wyatt Work Phone: [facility] 02-08-2023 12:36-0400 Systolic blood pressure 150 mm[Hg] PA-Ventura Wyatt Work Phone: [facility] 12-19-2022 14:43-0400 Body temperature 96.9 [degF] FERMIN-Ventura Wyatt Work Phone: [facility] 12-19-2022 14:43-0400 Diastolic blood pressure 74 mm[Hg] PA-Ventura Wyatt Work Phone: [facility] 12-19-2022 14:43-0400 Heart rate 59 /min SADAF Wyatt Work Phone: [facility] 12-19-2022 14:43-0400 Respiratory rate 18 /min SADAF Wyatt Work Phone: [facility] 12-19-2022 14:43-0400 SaO2% (BldA) [Mass fraction] 100 % PA-Ventura Wyatt Work Phone: [facility] 12-19-2022 14:43-0400 Systolic blood pressure 115 mm[Hg] PA-Ventura Wyatt Work Phone: [facility] 12-19-2022 14:00-0400 Diastolic blood pressure 89 mm[Hg] PA-Ventura Wyatt Work Phone: [facility] 12-19-2022 14:00-0400 Heart rate 79 /min PA-C Andie Wyatt Work Phone: [facility] 12-19-2022 14:00-0400 Respiratory rate 16 /min PA-Ventura Wyatt Work Phone: [facility] 12-19-2022 14:00-0400 SaO2% (BldA) [Mass fraction] 99 % PA-Ventura Wyatt Work Phone: [facility] 12-19-2022 14:00-0400 Systolic blood pressure 150 mm[Hg] PA-C Andie Wyatt Work Phone: [facility] 12-19-2022 03:30-0400 Body height 165.1 cm PA-Ventura Wyatt Work Phone: [facility] 12-19-2022 03:30-0400 Body weight 72.2 kg SADAF Wyatt Work Phone: [facility] 12-18-2022 23:07-0400 Body height 165.1 cm PA-Ventura Wyatt Work Phone: [facility] 12-18-2022 23:07-0400 Body weight 74.2 kg PAZhao Wyatt Work Phone: [facility] 12-18-2022 23:05-0400 Body temperature 98.5 [degF] SADAF Wyatt Work Phone: [facility] 08-20-2022 14:31-0500 Body height 165.1 cm PA-Ventura Wyatt Work Phone: [facility] 08-20-2022 14:31-0500 Body temperature 98.9 [degF] FERMIN-Ventura Wyatt Work Phone: [facility] 08-20-2022 14:31-0500 Body weight 71.55 kg SADAF Wyatt Work Phone: [facility] 08-20-2022 14:31-0500 Diastolic blood pressure 87 mm[Hg] PA-Ventura Wyatt Work Phone: [facility] 08-20-2022 14:31-0500 Heart rate 97 /min SADAF Wyatt Work Phone: [facility] 08-20-2022 14:31-0500 Respiratory rate 18 /min SADAF Wyatt Work Phone: [facility] 08-20-2022 14:31-0500 SaO2% (BldA) [Mass fraction] 98 % PA-Ventura Wyatt Work Phone: [facility] 08-20-2022 14:31-0500 Systolic blood pressure 135 mm[Hg] PA-Ventura Wyatt Work Phone: [facility] 02-08-2022 03:06-0400 Body weight 68.[address] CUONG ORTIZ . [facility] Comment on above: Performed By: #### AFPMAT #### [facility] [address] [place] [address] Dr. Juan Antonio Ibarra 02-05-2022 18:24-0400 Body height 165.1 cm PAZhao Wyatt Work Phone: [facility] 02-05-2022 18:24-0400 Body temperature 98.3 [degF] SADAF Wyatt Work Phone: [facility] 02-05-2022 18:24-0400 Body weight 67.9 kg PAZhao Wyatt Work Phone: [facility] 02-05-2022 18:24-0400 Diastolic blood pressure 68 mm[Hg] SADAF Wyatt Work Phone: [facility] 02-05-2022 18:24-0400 Heart rate 92 /min SADAF Wyatt Work Phone: [facility] 02-05-2022 18:24-0400 Respiratory rate 18 /min SADAF Wyatt Work Phone: [facility] 08-22-2022 18:24-0400 SaO2% (BldA) [Mass fraction] 99 % SADAF Wyatt Work Phone: [facility] 02-05-2022 18:24-0400 Systolic blood pressure 125 mm[Hg] SADAF Wyatt Work Phone: [facility] Encounters Encounter Date Encounter Type Care Provider Facility Start: 11-04-2023 End: 11-04-2023 ambulatory CUONG DIANA Not Available Start: 10-28-2023 End: 10-28-2023 ambulatory CUONG DIANA Not Available Start: 10-14-2023 End: 10-14-2023 ambulatory CUONG DIANA Not Available Start: 09-30-2023 End: 09-30-2023 ambulatory CUONG DIANA Not Available Start: 09-12-2023 End: 09-12-2023 ambulatory CUONG DIANA Not Available Start: 08-15-2023 End: 08-15-2023 ambulatory [facility] Start: 08-15-2023 End: 08-15-2023 ambulatory CUONG DIANA Not Available Start: 07-22-2023 Documentation procedure Lucio Renee [facility] Work Phone: [facility] Comment on above: Outgoing Ca [...] pre gnancy Start: 07-18-2023 End: 07-18-2023 ambulatory [facility] Start: 07-03-2023 End: 07-03-2023 ambulatory CUONG R DIANA [facility] Start: 07-03-2023 End: 07-03-2023 Telemedicine consultation with patient Rosaura Renee [facility] Work Phone: [facility] Comment on above: Family history of ge netic disorder (Primary Dx); Genetic testing; Fetus with trisomy 13, single gestation Start: 06-20-2023 End: 06-20-2023 ambulatory BARB WILLIAMS Not Available Start: 05-23-2023 End: 05-23-2023 ambulatory CUONG ORTIZ Not Available Start: 04-16-2023 ambulatory Cesar Clayton acility:[facility] Start: 02-11-2023 End: 02-11-2023 Emergency department patient visit Johnson Annie Facility:[facility] Start: 02-11-2023 End: 02-11-2023 Emergency department patient visit SADAF Wyatt Work Phone: [facility] Work Phone: Start: 02-08-2023 End: 02-08-2023 Emergency department patient visit Elle Rhodes Facility:[facility] Start: 02-08-2023 End: 02-08-2023 Emergency department patient visit SADAF Wyatt Work Phone: [facility] Work Phone: Start: 12-19-2022 End: 12-19-2022 ambulatory Arden Orozco Facility:[facility] Start: 12-19-2022 End: 12-19-2022 Evaluation and management of inpatient SADAF Wyatt Work Phone: [facility] [employer] Work Phone: Start: 12-19-2022 End: 12-19-2022 observation encounter SADAF Wyatt Work Phone: [facility] Work Phone: Start: 10-24-2022 End: 10-24-[address] CUONG ORTIZ . Facility:[facility] Start: 10-23-2022 Registered Recurring SADAF Wyatt Work Phone: [facility] Start: 08-20-2022 End: 08-20-2022 Emergency department patient visit Elle Rhodes Facility:[facility] Start: 08-20-2022 End: 08-20-2022 Emergency department patient visit SADAF Wyatt Work Phone: [facility] Work Phone: Start: 07-23-[address] CUONG ORTIZ . Facili ty:[facility] Start: 07-09-2022 End: 07-09-[address] CUONG ORTIZ . Facility: Start: 07-05-2022 End: 07-07-2022 Evaluation and management of inpatient DR CUONG ORTIZ . Facility: Start: 07-02-2022 End: 07-02-2022 [facility] Facility:[facility] Start: 06-28-2022 End: 06-28-[address] CUONG ORTIZ . Facility: Start: 06-21-2022 End: 06-21-2022 [facility] Facility:[facility] Start: 06-16-2022 End: 06-16-[address] CUONG ORTIZ . Facility: Start: 06-14-2022 End: 06-14-2022 ambulatory BARB KRAMER . Facility:[facility] Start: 06-14-2022 End: 06-14-[address] CUONG ORTIZ . Facility:[facility] Start: 06-07-2022 End: 06-07-[address] CUONG ORTIZ . Facility:[facility] Start: 06-04-2022 End: 06-04-[address] CUONG ORTIZ . Facility:[facility] Start: 06-02-2022 End: 06-02-[address] CUONG ORTIZ . Facility:[facility] Start: 05-31-2022 End: 05-31-[address] CUONG ORTIZ . Facility:[facility] Start: 05-24-2022 End: 05-24-2022 [facility] Facility:[facility] Start: 04-04-2022 End: 04-05-2022 [...] department patient visit SADAF Wyatt Work Phone: [facility] Start: 12-26-2021 End: 12-27-[address] CUONG ORTIZ . Facility:[facility] Start: 12-07-2021 End: 12-08-[address] CUONG ORTIZ . Facility: Start: 12-27-2017 End: 12-27-2017 Patient encounter Christian Ivan Facility:[facility] Start: 12-12-2017 End: 12-12-2017 Emergency department patient visit Luke Barbosa Facility:[facility] Start: 12-12-2017 Patient encounter Facil [id number] Start: 12-07-2017 Evaluation and management of inpatient CLARA JAMA Facility:[facility] Start: 12-03-2017 Evaluation and management of inpatient CLARA JAMA Facility:[facility] Start: 12-03-2017 Patient encounter procedure CLARA JAMA Facility:[facility] Start: 12-02-2017 Evaluation and management of inpatient CLARA JAMA Facility:[facility] Start: 11-30-2017 End: 12-02-2017 Evaluation and management of inpatient CLARA TERESA JAMA [facility] Start: 11-30-2017 End: 11-30-2017 Patient encounter Salomon Nguyen Facility:[facility] Start: 11-30-2017 Patient encounter Facil [id number] Start: 11-28-2017 End: 11-28-2017 Patient encounter CLARA JAMA [facility] Start: 11-21-2017 End: 11-21-2017 Patient encounter OKSANA MASON [facility] Start: 11-21-2017 End: 11-21-2017 Patient encounter Juantia Cole Facility:[facility] Start: 11-20-2017 Patient encounter Facil [id number] Start: 11-17-2017 End: 11-17-2017 Patient encounter Christian Ivan Facility:[facility] Start: 11-16-2017 Patient encounter Facil [id number] Start: 11-07-2017 End: 11-07-2017 Patient encounter OKSANA AMADO [facility] Start: 10-31-2017 End: 10-31-2017 Patient encounter CLARA JAMA [facility] Start: 10-24-2017 End: 10-24-2017 Patient encounter MARCO ANTONIO ANTONIO [facility] Start: 10-16-2017 End: 10-16-2017 Patient encounter Christian Ivan Facility:[facility] Start: 10-08-2017 End: 10-08-2017 Patient encounter ALIREZA PATEL [facility] Start: 10-08-2017 End: 10-08-2017 Patient encounter OKSANA AMADO [facility] Start: 10-01-2017 End: 10-02-2017 Patient encounter Christian Ivan Facility:[facility] Start: 09-10-2017 End: 09-11-2017 Patient encounter LUIS DANIEL RONCUSO [facility] Start: 09-10-2017 End: 09-10-2017 Patient encounter KRIS HOYT [facility] Start: 09-10-2017 End: 09-10-2017 Patient encounter CLARA JAMA [facility] Start: 09-03-2017 End: 09-04-2017 Patient encounter Christian Ivan Facility:[facility] Start: 08-28-2017 Ambulatory NAGA KARLA [facility] Start: 08-13-2017 End: 08-14-2017 Patient encounter CLARA JAMA [facility] Start: 08-13-2017 End: 08-13-2017 Patient encounter MEREDITH BENITO [facility] Start: 08-13-2017 End: 08-13-2017 Patient encounter ALIREZA PATEL [facility] Start: 08-10-2017 End: 08-10-2017 Emergency department patient visit Luke Barbosa Facility:[facility] Start: 08-06-2017 End: 08-07-2017 Patient encounter Christian Hennessyir Facility:[facility] Start: 07-23-2017 End: 07-24-2017 Patient encounter Christian A Kimble Facility:[facility] Start: 07-18-2017 End: 07-18-2017 Patient encounter CLARA JAMA [facility] Start: 07-09-2017 End: 07-10-2017 Patient encounter Christian A Kimble Facility:[facility] Start: 06-25-2017 End: 06-26-2017 Patient encounter Christian A Kimble Facility:[facility] Start: 06-12-2017 End: 06-12-2017 Patient encounter Christian A Kimble Facility:[facility] Start: 05-14-2017 End: 05-15-2017 Patient encounter Christian A Shekhar Facility:[facility] Start: 05-01-2017 End: 05-02-2017 Patient encounter Salomon Nguyen Facility:[facility] Start: 04-23-2017 End: 04-23-2017 Patient encounter Yasmin Evans Facility:[facility] Start: 04-22-2017 End: 04-22-2017 Emergency department patient visit Luke Barbosa Facility:[facility] Start: 04-18-2017 End: 04-18-2017 Emergency department patient visit Luke Barbosa Facility:[facility] Start: 04-16-2017 End: 04-17-2017 Patient encounter Gamaliel Savage Facility:[facility] Start: 04-16-2017 End: 04-17-2017 Patient encounter Christian Morelia Kimble Facility:[facility] Start: 04-11-2017 End: 04-11-2017 Emergency department patient visit Nodr No Doctor Assigned Facility:[facility] Start: 03-26-2017 End: 03-27-2017 Patient encounter Luke Barbosa Facility:[facility] Start: 03-20-2017 End: 03-20-2017 Emergency department patient visit Nodr No Doctor Assigned Facility:[facility] Start: 03-01-2017 End: 03-01-2017 Emergency department patient visit Nodr No Doctor Assigned Facility:[facility] Procedures Date Procedure Procedure Detail Performing [...] on above: Result Comment: PERF ORMED BY: [address] [address] PATHOLOGIST ORIENTOR MALVIN MEDLEY M.D. Start: 12-19-2022 X-ray of [...] HOSPITAL Work Phone: Start: 11-30-2017 Antibody screen RUCHIAyaz JAMA Comment on above: Performed By: #### T &S #### [place] [address] Aerobic microbial culture FERMIN Wyatt Work Phone: [...] 08/15/2023 2:15 PM EST Appointment [facility] [address]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
[2023-11-06 23:19] VITALS: BP 115/74; PULSE 97; TEMP 37
[2023-11-06 23:30] LABS: Bilirubin Urine NEGATIVE (NEGATIVE); Blood Urine NEGATIVE (NEGATIVE); Clarity Urine CLEAR (CLEAR); Color Urine LT. YELLOW (YELLOW); Glucose Urine UA NEGATIVE (NEGATIVE); Ketones Urine NEGATIVE (NEGATIVE); Leukocyte Esterase Urine LARGE (NEGATIVE); Nitrite Urine NEGATIVE (NEGATIVE); Protein Urine 30 mg/dL (NEG/TRACE); Specific Gravity Urine 1.015 (1.005-1.025); pH Urine >=9.0 (5.0-9.0)
[2023-11-06 23:32] LABS: Urine Microscopic Indicated YES
[2023-11-06 23:38] LABS: Amorphous Sediment Urine MANY; Bacteria Urine SMALL #/HPF (NONE SEEN); Cast Seen? NONE SEEN #/LPF (NONE SEEN); Crystals Seen? None Seen #/HPF (None Seen); Mucus Urine TRACE (NONE SEEN); RBC Urine 0-2 #/HPF (0-2); Squamous Epithelial Cell Urine MANY #/LPF (NONE/RARE); Urine Culture Indicated YES; WBC Urine 20-50 #/HPF (NONE SEEN)
[2023-11-07] VITALS (50 sets, daily range): BP systolic 79–137; BP diastolic 48–91; PULSE 77–141; TEMP 35.7–37.7
[2023-11-07] MEDS: 0.9 % SODIUM CHLORIDE 1,000 ML 125 ML IV ×2 (00:51→08:38)
[2023-11-07] MEDS: ONDANSETRON PF 4 MG/2 ML VIAL IV ×3 (00:52→07:20)
[2023-11-07] MEDS: CLINDAMYCIN PHOSPHATE/D5W 900 MG/50 ML PIGGYBACK 100 MG IV ×2 (01:17→08:24)
[2023-11-07 01:19] LABS: Hematocrit 30.2 % (36.0-48.0); Hemoglobin 9.5 g/dL (12.0-16.0); Mean Corpuscular HGB Conc 31.5 g/dL (29.9-35.2); Mean Corpuscular Hemoglobin 23.9 pg (26.7-34.0); Mean Corpuscular Volume 75.9 fL (81.0-99.0); Platelet Count 181 10^3/uL (150-450); Red Blood Count 3.98 10^6/uL (4.20-5.40); Red Cell Distribution Width 14.8 % (11.0-15.0); White Blood Count 11.2 10^3/uL (4.0-11.0)
[2023-11-07] MEDS: ROPIVACAINE HCL/PF 400 MG/200 ML PREMIX 6 MG EPIDURAL (02:00)
[2023-11-07 02:41] LABS: Amphetamine Screen Urine NEGATIVE (NEGATIVE); Barbiturates Screen Urine NEGATIVE (NEGATIVE); Benzodiazepines Screen Urine NEGATIVE (NEGATIVE); Buprenorphine Screen Urine NEGATIVE (NEGATIVE); Cannabinoid Screen Urine POSITIVE (NEGATIVE); Cocaine Screen Urine NEGATIVE (NEGATIVE); Methadone Screen Urine NEGATIVE (NEGATIVE); Methamphetamines Screen Urine NEGATIVE (NEGATIVE); Opiate Screen Urine NEGATIVE (NEGATIVE); Oxycodone Screen Urine NEGATIVE (NEGATIVE); Phencyclidine Screen Urine NEGATIVE (NEGATIVE); Tricyclic Antidepressant Urine NEGATIVE (NEGATIVE)
[2023-11-07] MEDS: 0.9 % SODIUM CHLORIDE 1,000 ML 1000 ML IV (03:04)
[2023-11-07] MEDS: EPHEDRINE SULFATE 50 MG/ML VIAL IV (04:54)
[2023-11-07] MEDS: OXYTOCIN/0.9 % SODIUM CHLORIDE 10 UNITS/500 ML PLAST..BAG 6 UNIT IV (08:07)
[2023-11-07] MEDS: OXYTOCIN/0.9 % SODIUM CHLORIDE 20 UNITS/1,000 ML PLAST..BAG 125 UNIT IV (09:26)
--- NOTE | 2023-11-07 09:30 | PM.OBPRCVD ---
Procedure Intrapartal events: None Induction method: none Delivery augmentation: rupture of membranes Delivery monitor: external FHT and external uterine Route of delivery: Episiotomy Description: none Anesthesia type: Epidural Disposition: floor Infant Delivery date: 11/07/23 Gender: female presentation: vertex Placental delivery description: Spontaneous cord description: 3 Vessels
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
[2023-11-07] MEDS: IBUPROFEN 600 MG TABLET PO ×2 (11:59→23:52)
--- NOTE | 2023-11-07 13:35 | PC.NURSE ---
Pt given snack and fluids at this time.
--- NOTE | 2023-11-07 13:36 | PC.NURSE ---
Mother at this time.
--- NOTE | 2023-11-07 13:42 | PC.NURSE ---
Pt nauseous at this time. pt given crackers and fluids. Epidural catheter removed. Pari-care performed.
--- NOTE | 2023-11-07 16:29 | PC.NURSE ---
Pt states her MARINELLI and nausea is resolved at this time.
--- NOTE | 2023-11-07 19:56 | W.PC.ACHO ---
Registration Status: ADM IN Primary Language: Burkinan Preferred Language: Burkinan Report given to Ai DURAN at 1915. Active Medications Generic Name Dose Route Start Last Admin Trade Name Freq PRN Reason Stop Dose Admin Acetaminophen 650 mg 11/07/23 09:31 Acetaminophen 325 Mg Tablet PO Q6H PRN Mild Pain Al Hydroxide/Mg Hydroxide 2,400 mg 11/07/23 09:31 Magnesium Hydroxide 2,400 Mg/10 Ml Oral.Susp PO Q6H PRN Dyspepsia Benzocaine/Menthol 1 applic 11/07/23 09:31 Benzocaine/Menthol 85 Gram [place] Bottle TOPICAL Q2H PRN Pain Diphtheria/Pertussis/Tetanus Vacc 0.5 ml 11/09/23 09:00 Adacel Diph,Pertuss(Acell),Tet Vac/Pf 0.5 Ml Adult Syringe IM 11/09/23 09:01 .ONCE ONE Docusate Sodium 100 mg 11/08/23 09:00 Docusate Sodium 100 Mg Capsule PO BID LYNNE Sodium Chloride 1,000 mls @ 125 mls/hr 11/07/23 00:30 11/07/23 08:38 Sodium Chloride 0.9% 1,000 Ml IV 125 mls/hr .Q8H LYNNE Administration Ibuprofen 600 mg 11/07/23 09:31 11/07/23 11:59 Ibuprofen 600 Mg Tablet PO 600 mg Q6H PRN Administration Moderate Pain Measles/Mumps/Rubella Vaccine Live 0.5 ml 11/09/23 09:00 Measles,Mumps,Rubella Vacc/Pf 0.5 Ml Vial SQ 11/09/23 09:01 .ONCE ONE Ondansetron HCl 4 mg 11/07/23 00:04 11/07/23 07:20 Ondansetron Pf 4 Mg/2 Ml Vial IV 4 mg Q6H PRN Administration Nausea Senna 17.2 mg 11/07/23 20:00 Sennosides 8.6 Mg Tablet PO QHS PRN Constipation Simethicone 80 mg 11/07/23 09:31 Simethicone 80 Mg Tab.Chew PO QID PRN Abdominal Distention Temazepam 15 mg 11/07/23 09:31 Temazepam 15 Mg Capsule PO QHS PRN Sleep Witch Venessa/Glycerin 1 pad 11/07/23 09:31 Glycerin/Witch Venessa Pads TOPICAL Q2H PRN Pain Diet Category Date Time Status Regular Consistency Diet Diet 11/07/23 09:31 Active Consults Category Date Time Status Consult to Anesthesiology Routine Cons 11/07/23 Ordered Consult to Health And Physical Education Teacher Routine Cons 11/07/23 Ordered IV Insertion/Site Date of IV Line Insertion [20g 11/07/23 left Proximal Forearm] IV Insertion Time [20g left 00:42 Proximal Forearm] Neurology Patient orientation (short person,place,time,situation list) Respiratory Oxygen Delivery Method Room Air Oxygen Delivery Method Room Air Oxygen Delivery Method Room Air Oxygen Delivery Method Room Air Bowels Bowel Pattern No Bowel Movement Bowel Pattern No Bowel Movement Renal Bladder Pattern Continent
[2023-11-08 05:52] LABS: Basophils Percent Auto 0.3 % (0.2-2.0); Eosinophils Absolute Auto 0.1 10^3/uL (0.0-0.7); Eosinophils Percent Auto 0.7 % (0.9-7.0); Hemoglobin 7.3 g/dL (12.0-16.0); Immature Granulocytes Abs Auto 0.09 10^3/uL (0.00-0.03); Immature Granulocytes Pct Auto 1.2 % (0.0-0.5); Lymphocytes Absolute Auto 1.7 10^3/uL (1.2-3.8); Lymphocytes Percent Auto 23.4 % (20.5-60.0); Mean Corpuscular HGB Conc 30.4 g/dL (29.9-35.2); Mean Corpuscular Hemoglobin 23.7 pg (26.7-34.0); Mean Corpuscular Volume 77.9 fL (81.0-99.0); Mean Platelet Volume 9.7 fL (9.5-13.5); Monocytes Absolute Auto 0.6 10^3/uL (0.3-0.8); Monocytes Percent Auto 8.1 % (1.7-12.0); Neutrophils Absolute Auto 4.8 10^3/uL (1.4-6.5); Neutrophils Percent Auto 66.3 % (43.0-75.0); Platelet Count 158 10^3/uL (150-450); Red Blood Count 3.08 10^6/uL (4.20-5.40); Red Cell Distribution Width 15.2 % (11.0-15.0); White Blood Count 7.3 10^3/uL (4.0-11.0)
[2023-11-08 07:42] VITALS: BP 125/83; PULSE 69
[2023-11-08] MEDS: DOCUSATE SODIUM 100 MG CAPSULE PO ×2 (10:08→21:19)
[2023-11-08] MEDS: IBUPROFEN 600 MG TABLET PO ×2 (10:08→18:17)
--- NOTE | 2023-11-08 12:33 | PM.OBPN ---
OB - PN: Subj Subjective Patient comments: no complaints, pain well controlled, tolerating diet and flatus present [place] infant status: doing well and other (PUMPING AND BOTTLE FEEDING) feeding status: breast and bottle feeding Exam Narrative Exam Narrative: HEMOGLOIN 7 PLUS BUT ASSYMPTOMATIC Constitutional Vital Signs, click to edit/add: Last Vital Signs Temp 97.7 F 11/07/23 23:45 Pulse 69 11/08/23 07:42 Resp 18 11/08/23 07:30 BP 125/83 11/08/23 07:42 O2 Del Method Room Air 11/08/23 07:30 Documenting provider has reviewed patient's vital signs: yes Common normals: no apparent distress, average body habitus, oriented x3, no limitations, healthy appearing, alert and well nourished HENWI Common normals: normocephalic and head/scalp atraumatic Eye Pupil: PERRL and accommodation reflex normal Neck & C-Spine Common normals: full ROM and supple Chest Common normals: inspection of chest normal Respiratory Common normals: normal respiratory effort and no retractions Cardio Common normals: regular rate and regular rhythm GI Common normals: Normal to inspection, nondistended, normoactive bowel sounds present, soft to palpation and non-tender Common normals: no CVA tenderness Back & Pelvis Common normals: no thoracic nor lumbar tenderness Extremity Common normals: normal to inspection, full ROM and no calf tenderness Neuro Common normals: oriented x3, CN's II-XII intact bilaterally, moves all extremities, no focal motor deficits and no sensory deficits noted Psych Common normals: mental status grossly normal, thought process normal, cooperative, affect normal and speech normal Results Labs Labs: Short CBC 11/08/23 Range/Units 05:42 WBC 7.3 (4.0-11.0) 10^3/uL Hgb 7.3 L (12.0-16.0) g/dL Hct 24.0 L (36.0-48.0) % Plt Count 158 (150-450) 10^3/uL OB - PN: A/P Assessment and Plan (1) (spontaneous vaginal delivery): Assessment and Plan: HEMOGLOBIN 7 PLUS. ASSYMPTOMATIC. IS ON IRON SULFATE 325 MG PO BID Plan - Vaginal Delivery day: 1 Plan: routine care Time Spent with Patient Time: Total time spent is greater than 50% in coordination of care (as documented) at patient's floor/unit and/or counseling patient: Total time spent with greater than 50% in coordination of care (as documented) at patient's floor/unit and/or counseling patient: less than 15 minutes
[2023-11-08 16:47] VITALS: TEMP 36.6
--- NOTE | 2023-11-08 19:45 | W.PC.ACHO ---
Registration Status: ADM IN Primary Language: Cuban Preferred Language: Cuban Report given to Ai at 1900.Active Medications Generic Name Dose Route Start Last Admin Trade Name Freq PRN Reason Stop Dose Admin Acetaminophen 650 mg 11/07/23 09:31 Acetaminophen 325 Mg Tablet PO Q6H PRN Mild Pain Al Hydroxide/Mg Hydroxide 2,400 mg 11/07/23 09:31 Magnesium Hydroxide 2,400 Mg/10 Ml Oral.Susp PO Q6H PRN Dyspepsia Benzocaine/Menthol 1 applic 11/07/23 09:31 Benzocaine/Menthol 85 Gram [place] Bottle TOPICAL Q2H PRN Pain Diphtheria/Pertussis/Tetanus Vacc 0.5 ml 11/09/23 09:00 Adacel Diph,Pertuss(Acell),Tet Vac/Pf 0.5 Ml Adult Syringe IM 11/09/23 09:01 .ONCE ONE Docusate Sodium 100 mg 11/08/23 09:00 11/08/23 10:08 Docusate Sodium 100 Mg Capsule PO 100 mg BID LYNNE Administration Ferrous Sulfate 325 mg 11/08/23 21:00 Ferrous Sulfate 325 Mg Tablet PO BID LYNNE Sodium Chloride 1,000 mls @ 125 mls/hr 11/07/23 00:30 11/07/23 08:38 Sodium Chloride 0.9% 1,000 Ml IV 125 mls/hr .Q8H LYNNE Administration Ibuprofen 600 mg 11/07/23 09:31 11/08/23 18:17 Ibuprofen 600 Mg Tablet PO 600 mg Q6H PRN Administration Moderate Pain Measles/Mumps/Rubella Vaccine Live 0.5 ml 11/09/23 09:00 Measles,Mumps,Rubella Vacc/Pf 0.5 Ml Vial SQ 11/09/23 09:01 .ONCE ONE Ondansetron HCl 4 mg 11/07/23 00:04 11/07/23 07:20 Ondansetron Pf 4 Mg/2 Ml Vial IV 4 mg Q6H PRN Administration Nausea Senna 17.2 mg 11/07/23 20:00 Sennosides 8.6 Mg Tablet PO QHS PRN Constipation Simethicone 80 mg 11/07/23 09:31 Simethicone 80 Mg Tab.Chew PO QID PRN Abdominal Distention Temazepam 15 mg 11/07/23 09:31 Temazepam 15 Mg Capsule PO QHS PRN Sleep Witch Venessa/Glycerin 1 pad 11/07/23 09:31 Glycerin/Witch Venessa Pads TOPICAL Q2H PRN Pain Respiratory Oxygen Delivery Method Room Air Oxygen Delivery Method Room Air Oxygen Delivery Method Room Air Cardiology Heart Sounds Regular Bowels Bowel Pattern No Bowel Movement Bowel Pattern No Bowel Movement Renal Bladder Pattern Continent Bladder Pattern Continent Bladder Pattern Continent
[2023-11-08] MEDS: FERROUS SULFATE 325 MG TABLET PO (21:19)
[2023-11-09 00:03] VITALS: BP 123/65; PULSE 66; TEMP 36.5
[2023-11-09 08:10] VITALS: BP 123/68; PULSE 76
[2023-11-09] MEDS: IBUPROFEN 600 MG TABLET PO (08:11)
[2023-11-09] MEDS: FERROUS SULFATE 325 MG TABLET PO (08:11)
[2023-11-09] MEDS: DOCUSATE SODIUM 100 MG CAPSULE PO (08:12)
[2023-11-09 08:15] VITALS: TEMP 36.7
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
== END 2023-11-09 15:30 | disposition home or self-care (01) | DRG 560 ==
PROVIDERS: Obstetrics & Gynecology; Admitting Provider Obstetrics & Gynecology; PCP Physician Assistant; Visit Provider Obstetrics & Gynecology
DX: O99.324 Drug use complicating childbirth (principal); Z82.79 Family history of other congenital malformations, deformations and chromosomal abnormalities; F12.90 Cannabis use, unspecified, uncomplicated; Z3A.36 36 weeks gestation of pregnancy; Z37.0 Single live birth
CPT/HCPCS: 36415; 51702; 59050; 59410; 76816; 76818; 80307; 81001; 85025; 85027; 86850; 86900; 86901; 87081; 87086; 96365; 96375; 96376

== ENCOUNTER 2023-11-12 08:12 | Outpatient (OUT) | payer MEDICAID, SELFPAY ==
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
[2023-11-12 15:27] VITALS: BP 117/76; PULSE 76; TEMP 36.8; O2SAT 97
== END 2023-11-12 14:15 | disposition home or self-care (01) ==
LOC: FBCO 08:12
PROVIDERS: PCP Physician Assistant; Visit Provider Obstetrics & Gynecology
DX: Z39.2 Encounter for routine postpartum follow-up (principal)

== ENCOUNTER 2023-11-15 08:48 | Outpatient (OUT) | payer MEDICAID, SELFPAY ==
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
== END 2023-11-15 12:21 | disposition home or self-care (01) ==
LOC: FBCO 08:49
PROVIDERS: PCP Physician Assistant; Visit Provider Obstetrics & Gynecology
DX: Z39.1 Encounter for care and examination of lactating mother (principal)
CPT/HCPCS: G0463

== ENCOUNTER 2023-11-20 08:16 | Outpatient (OUT) | payer MEDICAID, SELFPAY ==
--- OUTSIDE RECORDS SUMMARY | 2023-11-20 08:27 | XMS_ITS | CCD ---
Author Organization [facility] Care Team Providers Care Director Of Research Name Role Phone EVITACLARA Unavailable Unavail able SERENITY MALDONADO Unavailable Unavailable OKSANA CARO Unavailable UnavaNAGA Hull Unavailable Unavailable BARBOSA, LUKE MALIK Unavailable Unavailable Salomon Nguyen Unavailable Unavailable Salomon Nguyen Unavailable Unavailable Barbosa, Luke Unavailable Unavailable Appanoose, Christian A Unavailable Unavailable Barbosa, Luke Unavailable Unavailable [place]anoose, Christian A Unavailable Unavailable Barbosa, Luke Unavailable Unavailable Shekhar, Christian A Unavailable Unavailable Barbosa, Luke Unavailable Unavailable Appanoose, Christian A Unavailable Unavailable Barbosa, Luke Unavailable Unavailable [place]anoose, Christian A Unavailable Unavailable Shekhar, Christian A Unavailable Unavailable Barbosa, Luke Unavailable Unavailable Shekhar, Christian A Unavailable Unavailable Barbosa, Luke Unavailable Unavailable Appanoose, Christian A Unavailable Unavailable [place]anoose, Christian A Unavailable Unavailable Barbosa, Luke Unavailable Unavailable Barbosa, Luke Unavailable Unavailable Woo, Emiliano Unavailable Unavailable Woo, Emiliano Unavailable Unavailable Patrick Salomon R Unavailable Unavailable Barbosa, Luke Unavailable Unavailable Barbosa, Luke Unavailable Unavailable Oscar, Jag W Unavailable Unavailable Thornburg, Jag W Unavailable Unavailable Appanoose, Christian A Unavailable Unavailable Barbosa, Luke Unavailable Unavailable Appanoose, Christian A Unavailable Unavailable Barbosa, Luke Unavailable Unavailable No Doctor Assigned, Nodr Unavailable Unavail able Ivanauskas, Saulius Unavailable Unavailable Ivanauskas, Saulius Unavailable Unavailable Savage, Gamaliel M Unavailable Unavailable Savage, Gamaliel M Unavailable Unavailable Barbosa, Luke Unavailable Unavailable Nampa, Yasmin D Unavailable Unavailable Barbosa, Luke Unavailable Unavailable No Doctor Assigned, Nodr Unavailable Unavail able Woo, Emiliano Unavailable Unavailable Woo, Emiliano Unavailable Unavailable No Doctor Assigned, Nodr Unavailable Unavail able Oscar, Jag W Unavailable Unavailable Oscar, Jag W Unavailable Unavailable Barbosa, Luke Unavailable Unavailable No Doctor Assigned, Nodr Unavailable Unavail able Savgae, Gamaliel M Unavailable Unavailable Barbosa, Luke Unavailable Unavailable Hannah, Aaron A Unavailable Unavailable Hannah, Aaron A Unavailable Unavailable Patrick, Salomon R Unavailable Unavailable Patrick, Salomon R Unavailable Unavailable Barbosa, Luke Unavailable Unavailable Frank, Juanita Unavailable Unavailable Frank, Juanita Unavailable Unavailable Barbosa, Luke Unavailable Unavailable Shekhar, Christian A Unavailable Unavailable Appanoose, Christian A Unavailable Unavailable Barbosa, Luke Unavailable Unavailable Shekhar, Christian A Unavailable Unavailable Barbosa, Luke Unavailable Unavailable Barbosa, Luke Unavailable Unavailable [place]burg, Jag W Unavailable Unavailable Oscar, Jag W Unavailable Unavailable Shekhar, Christian A Unavailable Unavailable Barbosa, Luke Unavailable Unavailable Savage, Gamaliel M Unavailable Unavailable Savage, Gamaliel M Unavailable Unavailable Barbosa, Luke Unavailable Unavailable [place]ano[place], Christian A Unavailable Unavailable Barbosa, Luke Unavailable [...] Primary Care Provider SADAF Hess Emergency Provider [phone] SADAF Wyatt [facility] Elle Whitney Emergency Provider DR CUONG PAGAN Consulting Unavailable [facility] Primary Care Unavailable DIANA ., DR ACOSTA Attending Unavailable DIANA ., DR ACOSTA Admitting Unavailable DIANA ., DR ACOSTA Admitting Unavailable DIANA ., DR ACOSTA Attending Unavailable [facility] Primary Care Unavailable DIANA ., DR ACOSTA Consulting Unavailable SUSI, DR FELECIA Chadwick Consulting Unavailable [facility] Primary Care Unavailable JUANAK .DR CAMACHO Admitting Unavailabl e KARASIK ., DR CAMACHO Attending Unavailabl e KARASIK ., DR CAMACHO Consulting Unavailabl e WEST, DR GAMALIEL Fischer Consulting Unavailable DIANA ., DR ACOSTA Consulting Unavailable ZIEBER, DR FELECIA Chadwick Consulting Unavailable WILLIAMS ., BARB Admitting Unavailable WILLIAMS ., BARB Attending Unavailable [facility] Primary Care Unavailable WILLIAMS ., BARB Consulting Unavailable DIANA ., DR ACOSTA Admitting Unavailable DIANA ., DR ACOSTA Attending Unavailable [facility] Primary Care Unavailable DIANA ., DR ACOSTA Consulting Unavailable [facility] Primary Care Unavailable KARASIK ., DR CAMACHO Admitting Unavailabl e KARASIK ., DR CAMACHO Attending Unavailabl e KARASIK ., DR CAMACHO Consulting Unavailabl e DIANA ., DR ACOSTA Admitting Unavailable DIANA ., DR ACOSTA Attending Unavailable [facility] Primary Care Unavailable DIANA ., DR ACOSTA Consulting Unavailable ZIEBER, DR FELECIA Chadwick Consulting Unavailable DIANA ., DR ACOSTA Admitting Unavailable DIANA ., DR ACOSTA Attending Unavailable [facility] Primary Care Unavailable DIANA ., DR ACOSTA Consulting Unavailable ZIEBER, DR FELECIA Chadwick Consulting Unavailable PRATIMA, BRODIE Consulting Unavailable DIANA ., DR ACOSTA Consulting Unavailable [facility] Primary Care Unavailable DIANA ., DR ACOSTA Attending Unavailable DIANA ., DR ACOSTA Admitting Unavailable ZIEBER, DR FELECIA Chadwick Consulting Unavailable DIANA ., DR ACOSTA Consulting Unavailable [facility] Primary Care Unavailable DIANA ., DR ACOSTA Attending Unavailable DIANA ., DR ACOSTA Admitting Unavailable DIANA ., DR ACOSTA Admitting Unavailable DIANA ., DR ACOSTA Attending Unavailable [facility] Primary Care Unavailable DIANA ., DR ACOSTA Consulting Unavailable ZIEBER, DR FELECIA Chadwick Consulting Unavailable DIANA ., DR ACOSTA Admitting Unavailable DIANA ., DR ACOSTA Attending Unavailable [facility] Primary Care Unavailable WEST, DR GAMALIEL Fischer Consulting Unavailable DIANA ., DR ACOSTA Consulting Unavailable [facility] Primary Care Unavailable KARASIK ., DR CAMACHO Admitting Unavailabl e KARASIK ., DR CAMACHO Attending Unavailabl e KARASIK ., DR CAMACHO Consulting Unavailabl e DIANA ., DR ACOSTA Consulting Unavailable ZIEBER, DR FELECIA Chadwick Consulting Unavailable DIANA ., DR ACOSTA Admitting Unavailable DIANA ., DR ACOSTA Attending Unavailable [facility] Primary Care Unavailable WEST, DR GAMALIEL Fischer Consulting Unavailable DIANA ., DR ACOSTA Consulting Unavailable DIANA ., DR ACOSTA Admitting Unavailable DIANA ., DR ACOSTA Attending Unavailable [facility] Primary Care Unavailable DIANA ., DR ACOSTA Consulting Unavailable DIANA ., DR ACOSTA Admitting Unavailable DIANA ., DR ACOSTA Attending Unavailable [facility] Primary Care Unavailable DIANA ., DR ACOSTA Consulting Unavailable ZIEBER, DR FELECIA Chadwick Consulting Unavailable DIANA ., DR ACOSTA Admitting Unavailable DIANA ., DR ACOSTA Attending Unavailable [facility] Primary Care Unavailable DIANA ., DR ACOSTA Consulting Unavailable DIANA ., DR ACOSTA Admitting Unavailable DIANA ., DR ACOSTA Attending Unavailable [facility] Primary Care Unavailable DIANA ., DR ACOSTA Consulting Unavailable [facility] Primary Care Unavailable DIANA ., DR ACOSTA Attending Unavailable DIANA ., DR AOCSTA Admitting Unavailable DIANA ., DR ACOSTA Admitting Unavailable DIANA ., DR ACOSTA Attending Unavailable [facility] Primary Care Unavailable DIANA ., DR ACOSTA Admitting Unavailable DIANA ., DR ACOSTA Attending Unavailable [facility] Primary Care Unavailable KARASIK ., DR CAMACHO Consulting Unavailabl e DIANA ., DR ACOSTA Consulting Unavailable DIANA ., DR ACOSTA Procedure Practitioner Unavail able ORLANDO PRASAD Consulting Unavailable JACQUES FLETCHER Consulting Unavailable DIANA ., DR ACOSTA Admitting Unavailable DIANA ., DR ACOSTA Attending Unavailable [facility] Primary Care Unavailable KARASIK ., DR CAMACHO Consulting Unavailabl e ZIEBER, DR FELECIA Chadwick Consulting Unavailable SADAF Wyatt Primary Care Provider MD Farhan Jean Attending Provider [phone] DO Lui Oscar Emergency Provider Itzkowitz, DO Arden Admit Provider [phone] Itzkocece, DO Arden Attending Provider FRED Ventura Other Provider UnavailMD Juan Edwards Other Provider BRISA MoniqueC Ailyn Other Provider MD Jacques Valerio Other Provider MD Edith Urias Other Provider SADAF Wyatt Primary Care Provider Meagan, STICKER ON-BC Elle E Emergency Provider BRANNON Valencia Emergency Provider [phone] Andie Wyatt PA-C Primary Care Provider CUONG [...] [BEES] Propensity to adverse reactions (disorder) 8 [facility] Repository (2 sources) Mold spore; Translations: [MOLD SPORES] Propensity to adverse reactions (disorder) 8 [facility] Repository (18 sources) Penicillins; Translations: [PENICILLINS] Propensity to adverse reactions to drug (disorder) 4 [facility] Repository (12 sources) Sulfonamides (Antibiotic); Translations: [SULFA (SULFONAMIDE ANTIBIOTICS)] Propensity to adverse reactions to drug (disorder) 8 [facility] Repository (1 source) Bee/Wasp/Ant venom; Translations: [Bee Stings] Propensity to adverse reactions to drug (disorder) [facility] Repository (1 source) mold extract; Translations: [Mold] Drug Allergy [facility] Repository (1 source) Sulfonamides (Antibiotic); Translations: [sulfa drugs] Propensity to adverse reactions to drug (disorder) [facility] Repository (4 sources) bee venom; Translations: [BEE VENOM] Propensity to adverse reactions to drug (disorder) 8 [facility] Repository (1 source) OTHER; Translations: [OTHER] Propensity to adverse reactions to food (disorder) 8 [facility] Repository (1 source) MOLDS & SMUTS; Translations: [MOLDS & SMUTS] Propensity to adverse reactions to drug (disorder) 8 [facility] Repository (4 sources) SULFA ANTIBIOTICS; Translations: [SULFA ANTIBIOTICS] Propensity to adverse reactions to drug (disorder) 8 [facility] Repository (1 source) Sulfonamides (Antibiotic) Drug allergy (disorder) 4 [facility] Repository (4 sources) Bee Venom Protein (Honey Bee); Translations: [BEE VENOM PROTEIN (HONEY BEE)] Propensity to adverse reactions to drug 2 [employer] [facility] (1 source) Penicillin Drug Allergy 2 [facility] Repository (1 source) Sulfacetamide Drug Allergy 2 [facility] Repository Medications Current Medications Medication Drug Class(es) [...] mouth in the morning. 0 02/27/2023 Active [place] (No Known Home Meds) (2 sources) Start: 12-18-2022 [place] (No Known Home Meds) Active December 18, [...] (-1 ORAL) Take by mouth. 0 Active Vrhyczxr-Eol-Zv-FA (, w/Iron & FA,) 27-0.8 MG tablet (3 sources) Chajlaft-Zry-Oj-FA (, w/Iron & FA,) 27-0.8 MG tablet 1 (one) time each day at the same time. 0 Active TZ-Uuc-WD-Casey-3 ( Gummies/DHA & FA) 0.4-32.5 MG chewable tablet (3 sources) Start: 07-09-2023 End: 08-08-2023 GE-Myr-MU-Casey-3 ( Gummies/DHA & FA) 0.4-32.5 MG chewable [...] Onset: 11-30-2017 Unclassified (3 sources) M/C OTH MOSAIC TILER 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 NA/UNS; Translations: [M/C OTH MOSAIC TILER 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 NA/UNS] Onset: 07-05-2022 Unclassified (1 [...] 12-12-2021 Episodic Unclassified (1 source) M/C OTH MOSAIC TILER 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 NA/UNS; Translations: [M/C OTH MOSAIC TILER 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 NA/UNS] Onset: 07-02-2022 Results Test Name Value Interpretation Reference Range Facility AFP, SERUM, OPEN SPINA BIFID Aon 07-20-2023 AFP MOM 1.21 . [facility] AFP VALUE 70.2 ng/mL . [facility] COMMENT: Comment . [facility] Comment on above: Alma Chaudhary , Ph.D., [facility] Director References: Available Upon Request. Multiples Of Median Cutoffs For AFP Elevations Briscoe 2.5 Black 2.8 IDD 2.0 Twins 4.5 Abbreviation Definitions IDD - Insulin Dep Diabetes OSBR - Open Spina Bifida Risk For further inquiries contact [employer] at [phone]. This test was developed and its performance characteristics determined by [employer]. It has not been cleared or approved by the Food and Drug Administration. Performed at: [facility] [address] [place], [place] [id number] Occupational Health Nurse Supervisor: Oz Harkins [facility], Phone: [phone] GEST. AGE ON COLLECTION DATE 20.4 . weeks [facility] GESTAT. AGE BASED ON LMP . [facility] Comment on above: Recalculations are n ot recommended when gestational dating by LMP and ultrasound are within 10 days. INSULIN DEP DIABETES No . [facility] INTERPRETATION Comment . [facility] Comment on above: Interpretation: Scre en Negative [...] Customer Services to discuss available options. The [employer] recommends amniocentesis be offered to women age 35 and older. [age] [facility] MULTIPLE GESTATION No . [facility] OSBR RISK 1 [place] 6301 . [facility] RACE . [facility] RESULTS Report . [facility] TEST RESULTS: Negative . [facility] WEIGHT 159 . lbs [facility] N N LMP [id number] 3 16 N 1 Y 159 N N N N White/ [facility] Urinalysis macro (dipstick) panel (U)on 07-18-2023 Bilirubin, UA Negative Negative - 4(70) +++ mg/dL [facility] Blood, UA Negative Negative - 50 Rakesh/mcL [facility] Clarity, UA Clear [facility] Color, UA Yellow [facility] Glucose, UA Negative Negative - 1999(110) ++++ mg/dL [facility] Interpretation and review of laboratory results Normal [facility] Ketones, UA Negative Negative - 160(16) ++++ mg/dL [facility] Leukocytes, UA Negative Negative - 500+++ Matti/mcL [facility] Nitrite, UA Negative Negative - Positive [facility] pH, UA 5.5 5 - 9 [facility] Protein, UA Negative Negative - 1999(20) ++++ mg/dL [facility] Spec Grav, UA 1.020 1 - 1.03 [facility] Urobilinogen, UA 1.0 0.2 - 12 mg/dL [facility] ABO/Rh Retypeon 12-19-2022 ABO/RH Recheck Result Positive Normal [facility] Comment on above: Result Comment: PERF ORMED BY: [facility] [address] [place] [address] PATHOLOGIST LIQUEFIER MALVIN MEDLEY M.D. Amphetamine Screen Ql (U)Ord ered By: Oscar Poe on 12-19-2022 Amphetamines Ql (U) Negative Negative [facility] Amylaseon 12-19-2022 Amylase [Catalytic activity/Vol] 35 U/L Normal 29-103 [facility] Comment on above: Performed By: #### C BC, CREAT, GLU, LYTES, AST, ETOH, BARB, LIPASE, CK, BUN ####[facility] Aspartate Amino Transferaseo n 12-19-2022 AST [Catalytic activity/Vol] 26 U/L Normal 13-39 [facility] Comment on above: Performed By: #### C BC, CREAT, GLU, LYTES, AST, ETOH, BARB, LIPASE, CK, BUN ####[facility] Automated erythrocytes count in urine sediment (number/area)Ordered By: Oscar Poe on 12-19-2022 RBC Auto (Urine sed) [#/Area] 5-9 [HPF] 0-4 [facility] Automated leukocytes count i n urine sediment (number/area)Ordered By: Oscar Poe on 12-19-2022 WBC Auto (Urine sed) [#/Area] 10-19 [HPF] 0-4 [facility] Barbiturates [Presence] in U rine by Screen methodOrdered By: Oscar Poe on 12-19-2022 Barbiturates Screen Ql (U) Negative Negative [facility] Benzodiazepines Screen Ql (U )Ordered By: Oscar Poe on 12-19-2022 Benzodiazepines Ql (U) Negative Negative [facility] Benzoylecgonine [Presence] i n Urine by Screen methodOrdered By: Oscar Poe on 12-19-2022 Benzoylecgonine Screen Ql (U) Negative Negative [facility] Bilirubin Test strip Ql (U)O rdered By: Oscar Poe on 12-19-2022 Bilirubin Ql (U) Negative Negative [facility] Blood Urea Nitrogenon 2022 Urea nitrogen [Mass/Vol] 21 mg/dL Normal 7-25 [facility] Comment on above: Performed By: #### C BC, CREAT, GLU, LYTES, AST, ETOH, BARB, LIPASE, CK, BUN ####[place] [id number] [address] cervical spine wo conon 0 12-19-2022 CT cervical spine wo con [facility] Main [place] [address] [place] [address] CT Scan Report Signed Patient: Zuleika Wyatt MR#: [id number] : 1990 Acct:[id number] Age/Sex: 32 / F ADM Date: 12/19/22 Loc: Room: [address] [place] [address] Type: ADM INOo Attending Dr: Arden Orozco DO Copies to: DO Arden Jefferson DO Ordering Provider: Oscar Poe DO Date of Service: 12/18/22 CT/CT cervical spine wo con: f ([id number]) CT/CT head/brain wo con: f CT BRAIN [...] Pimentel Jr., D.Florian12/19/2022 10:25 AM Dictation Location: [place] [address] Transcribed By: [facility] 12/19/22 1025 Dictated By: Rah Pimentel Jr, DO 12/19/22 1016 Signed By: 12/19/22 1025 [facility] CT head/brain wo conon 12-19 CT head/brain wo con [facility] [place] [address] CT Scan Report Signed Patient: Zuleika Wyatt MR#: [id number] : 1990 Acct:[id number] Age/Sex: 32 / F ADM Date: 12/19/22 Loc: Room: [address] [place] [address] Type: DIS INOo Attending Dr: Arden Orozco [...] Pimentel Jr., D.O.12/19/2022 3:28 PM Dictation Location: [place] [address] Transcribed By: [facility] 12/19/22 1528 Dictated By: Rah Pimentel Jr, DO 12/19/22 1524 Signed By: 12/19/22 1528 [facility] CT lumbar spine wo [facility] CT lumbar spine wo [facility] [place] [address] CT Scan Report Signed Patient: Zuleika Wyatt MR#: [id number] : 1990 Acct:[id number] Age/Sex: 32 / F ADM Date: 12/19/22 Loc: Room: [address] [place] [address] Type: ADM INOo Attending Dr: Arden Orozco DO Copies to: DO Arden Jefferson DO Ordering Provider: Oscar Poe DO Date of Service: 12/18/22 CT/CT thoracic spine wo con: f ([id number]) CT/CT lumbar spine wo con: f CT [...] narrowing or hypertrophy. The ribs within the mzuei-uz-wvcz appear intact. No paraspinal soft tissue abnormalities are present. The ascending aorta is mildly ectatic. The heart is not fully imaged though it is at least borderline prominent. There is no consolidation, pleural effusion or pneumothorax within the yvidm-ng-xbuv. No lumbar compression fractures are identified. There [...] The intra-abdominal and pelvic structures within the hsnur-fv-hcao show no contributory findings. CT/CT thoracic spine wo con IMPRESSION: MILD THORACIC SCOLIOSIS. NO ACUTE BONY INJURY INVOLVING THE THORACIC OR LUMBAR SPINE. Impression dictated by: Adela Mahan M.D.12/19/2022 10:36 AM Dictation Location: [place] [address] Transcribed By: [facility] 12/19/22 1036 Dictated By: Adela Mahan MD 12/19/22 1026 Signed By: 12/19/22 1036 Normal [facility] Cannabinoids [Presence] in U rine by Screen methodOrdered By: Oscar Poe on 12-19-2022 Cannabinoids Screen Ql (U) Positive Negative [facility] Comment on above: These are unconfirme d results and should not be used for legal purposes. Drug Cut-Off Concentration: AMPH 1000 ng/mL SEEMA 200 ng/mL LAZ 200 ng/mL COCM 300 ng/mL OP 300 ng/mL PCP 25 ng/mL THC 20 ng/mL Color Auto (U)Ordered By: Fernando Poe on 12-19-2022 Color (U) Yellow Yellow [facility] Complete Blood Count Auto Di ffon 12-19-2022 Basophils (Bld) [#/Vol] 0.1 10*3/uL Normal 0.0-0.2 [facility] Comment on above: Result Comment: PERF ORMED BY: [facility] [address] [address] PATHOLOGIST LIQUEFIER MALVIN MEDLEY M.D. Performed By: #### C BC, CREAT, GLU, LYTES, AST, ETOH, BARB, LIPASE, CK, BUN ####[address] Basophils/100 WBC (Bld) 0.7 % Normal . [facility] Comment on above: Performed By: #### C BC, CREAT, GLU, LYTES, AST, ETOH, BARB, LIPASE, CK, BUN ####[address] Eosinophils (Bld) [#/Vol] 0.0 10*3/uL Normal 0.0-0.45 [facility] Comment on above: Performed By: #### C BC, CREAT, GLU, LYTES, AST, ETOH, BARB, LIPASE, CK, BUN ####[address] Eosinophils/100 WBC (Bld) 0.2 % Normal . [facility] Comment on above: Performed By: #### C BC, CREAT, GLU, LYTES, AST, ETOH, BARB, LIPASE, CK, BUN ####[address] Erythrocyte distribution width (RBC) [Ratio] 14.4 % Normal 11.9-15.3 [facility] Comment on above: Performed By: #### C BC, CREAT, GLU, LYTES, AST, ETOH, BARB, LIPASE, CK, BUN ####[address] Hematocrit (Bld) [Volume fraction] 36.2 % Normal 34.0-46.4 [facility] Comment on above: Performed By: #### C BC, CREAT, GLU, LYTES, AST, ETOH, BARB, LIPASE, CK, BUN ####[address] Hemoglobin (Bld) [Mass/Vol] 11.9 g/dL Normal 11.8-15.4 [facility] Comment on above: Performed By: #### C BC, CREAT, GLU, LYTES, AST, ETOH, BARB, LIPASE, CK, BUN ####[address] Lymphocytes (Bld) [#/Vol] 2.2 10*3/uL Normal 1.00-4.8 [facility] Comment on above: Performed By: #### C BC, CREAT, GLU, LYTES, AST, ETOH, BARB, LIPASE, CK, BUN ####[address] Lymphocytes/100 WBC (Bld) 21.8 % Normal . [facility] Comment on above: Performed By: #### C BC, CREAT, GLU, LYTES, AST, ETOH, BARB, LIPASE, CK, BUN ####[address] MCH (RBC) [Entitic mass] 26.9 pg Normal 24.7-34.3 [facility] Comment on above: Performed By: #### C BC, CREAT, GLU, LYTES, AST, ETOH, BARB, LIPASE, CK, BUN ####[address] MCV (RBC) [Entitic vol] 82.1 fL Normal 80-100 [facility] Comment on above: Performed By: #### C BC, CREAT, GLU, LYTES, AST, ETOH, BARB, LIPASE, CK, BUN ####[address] Mean Corpuscular HGB Conc 32.8 g/dL Normal 32.0-35.0 [facility] Comment on above: Performed By: #### C BC, CREAT, GLU, LYTES, AST, ETOH, BARB, LIPASE, CK, BUN ####[address] Monocytes (Bld) [#/Vol] 0.8 10*3/uL Normal 0.0-0.8 [facility] Comment on above: Performed By: #### C BC, CREAT, GLU, LYTES, AST, ETOH, BARB, LIPASE, CK, BUN ####[address] Monocytes/100 WBC (Bld) 22.19 % High 0.00-20.00 [facility] Comment on above: Result Comment: For adults in ED, MDW > 20.0 may be associated with a higher risk of sepsis during the first 12 hrs of hospital admission Performed By: #### C BC, CREAT, GLU, LYTES, AST, ETOH, BARB, LIPASE, CK, BUN ####[address] Monocytes/100 WBC (Bld) 7.4 % Normal . [facility] [place] Comment on above: Performed By: #### C BC, CREAT, GLU, LYTES, AST, ETOH, BARB, LIPASE, CK, BUN ####[address] Neutrophils (Bld) [#/Vol] 7.2 10*3/uL Normal 1.8-7.7 [facility] [place] Comment on above: Performed By: #### C BC, CREAT, GLU, LYTES, AST, ETOH, BARB, LIPASE, CK, BUN ####[address] Neutrophils/100 WBC (Bld) 69.9 % Normal . [facility] [place] Comment on above: Performed By: #### C BC, CREAT, GLU, LYTES, AST, ETOH, BARB, LIPASE, CK, BUN ####[address] NRBC% 0.1 /100{WBC} Normal 0-0.5 [facility] [place] Comment on above: Performed By: #### C BC, CREAT, GLU, LYTES, AST, ETOH, BARB, LIPASE, CK, BUN ####[address] Platelet mean volume (Bld) [Entitic vol] 8.1 fL Normal 6.3-10.7 [facility] [place] Comment on above: Performed By: #### C BC, CREAT, GLU, LYTES, AST, ETOH, BARB, LIPASE, CK, BUN ####[address] Platelets (Bld) [#/Vol] 223 10*3/uL Normal 150-450 [facility] [place] Comment on above: Performed By: #### C BC, CREAT, GLU, LYTES, AST, ETOH, BARB, LIPASE, CK, BUN ####[address] RBC (Bld) [#/Vol] 4.42 10*6/uL Normal 3.60-5.00 [facility] Comment on above: Performed By: #### C BC, CREAT, GLU, LYTES, AST, ETOH, BARB, LIPASE, CK, BUN ####[address] WBC (Bld) [#/Vol] 10.3 10*3/uL Normal 3.8-11.6 [facility] Comment on above: Performed By: #### C BC, CREAT, GLU, LYTES, AST, ETOH, BARB, LIPASE, CK, BUN ####[place] [id number] [facility] Creatine Kinaseon 12-19-2022 CK [Catalytic activity/Vol] 50 U/L Normal 30-223 [facility] [place] Comment on above: Result Comment: PERF ORMED BY: [facility] [address] [place] [address] PATHOLOGIST LIQUEFIER AMLVIN MEDLEY M.D. Performed By: #### C BC, CREAT, GLU, LYTES, AST, ETOH, BARB, LIPASE, CK, BUN ####[place] [id number] [facility] Creatinineon 12-19-2022 Creatinine [Mass/Vol] 0.84 mg/dL Normal 0.60-1.20 [facility] Comment on above: Performed By: #### C BC, CREAT, GLU, LYTES, AST, ETOH, BARB, LIPASE, CK, BUN ####[facility] [place] [address] [place] Creatinine Clr Calc Pharmacy 98.76 [facility] Comment on above: Performed By: #### C BC, CREAT, GLU, LYTES, AST, ETOH, BARB, LIPASE, CK, BUN ####[facility] GFR/1.73 sq M.predicted MDRD (S/P/Bld) [Vol rate/Area] mL/min/{1.73_m2} [facility] Comment on above: Performed By: #### C BC, CREAT, GLU, LYTES, AST, ETOH, BARB, LIPASE, CK, BUN ####[facility] Dipstick and Microscopicon 0 12-19-2022 Appearance (U) Clear Normal Clear [facility] [place] Comment on above: Order Comment: Name Collection Type:: Clean-Voided Midstream Performed By: #### U RDS, UHCG, CUU, ADDONUAPLUS #### [facility] [address] [place] [address] [place] Bacteria,Urine None Seen Normal None Seen [facility] Comment on above: Order Comment: Name Collection Type:: Clean-Voided Midstream Performed By: #### U RDS, UHCG, CUU, ADDONUAPLUS #### [facility] [address] [place] [address] [place] Bilirubin,Urine Negative Normal Negative [facility] [place] Comment on above: Order Comment: Name Collection Type:: Clean-Voided Midstream Performed By: #### U RDS, UHCG, CUU, ADDONUAPLUS #### [facility] [address] [place] [address] [place] Color (U) Yellow Normal Yellow [facility] Comment on above: Order Comment: Name Collection Type:: Clean-Voided Midstream Performed By: #### U RDS, UHCG, CUU, ADDONUAPLUS #### [facility] [address] Glucose Ql (U) Normal Normal Normal [facility] Comment on above: Order Comment: Name Collection Type:: Clean-Voided Midstream Performed By: #### U RDS, UHCG, CUU, ADDONUAPLUS #### [facility] [address] [place] [address] [place] Hyaline Casts,Urine 0-8 Normal 0-8 [facility] Comment on above: Order Comment: Name Collection Type:: Clean-Voided Midstream Performed By: #### U RDS, UHCG, CUU, ADDONUAPLUS #### [facility] [address] [place] [address] Ketones Ql (U) 1+ High Negative [facility] Comment on above: Order Comment: Name Collection Type:: Clean-Voided Midstream Performed By: #### U RDS, UHCG, CUU, ADDONUAPLUS #### [facility] [address] [place] [address] Leukocyte esterase Test strip Ql (U) 2+ High Negative [facility] Comment on above: Order Comment: Name Collection Type:: Clean-Voided Midstream Performed By: #### U RDS, UHCG, CUU, ADDONUAPLUS #### [facility] [address] [place] [address] [place] Nitrite,Urine Negative Normal Negative [facility] [place] Comment on above: Order Comment: Name Collection Type:: Clean-Voided Midstream Performed By: #### U RDS, UHCG, CUU, ADDONUAPLUS #### [facility] [address] [place] [address] [place] Occult Blood,Urine Negative Normal Negative [facility] Comment on above: Order Comment: Name Collection Type:: Clean-Voided Midstream Performed By: #### U RDS, UHCG, CUU, ADDONUAPLUS #### [facility] [address] [place] [address] [place] pH (U) 5.5 [pH] Normal 5.0-9.0 [facility] [place] Comment on above: Order Comment: Name Collection Type:: Clean-Voided Midstream Performed By: #### U RDS, UHCG, CUU, ADDONUAPLUS #### [facility] [address] [place] [address] Protein,Urine Negative Normal Negative [facility] [place] Comment on above: Order Comment: Name Collection Type:: Clean-Voided Midstream Performed By: #### U RDS, UHCG, CUU, ADDONUAPLUS #### [facility] [address] [place] [address] RBC,Urine 5-9 High 0-4 [facility] [place] Comment on above: Order Comment: Name Collection Type:: Clean-Voided Midstream Performed By: #### U RDS, UHCG, CUU, ADDONUAPLUS #### [address] Specificy [place],Urine 1.025 Normal 1.001-1.03 0 [facility] [place] Comment on above: Order Comment: Name Collection Type:: Clean-Voided Midstream Performed By: #### U RDS, UHCG, CUU, ADDONUAPLUS #### [facility] [address] [place] [address] Squamous Epithelial Cell,Urine 3-4 High 0-2 [facility] Comment on above: Order Comment: Name Collection Type:: Clean-Voided Midstream Performed By: #### U RDS, UHCG, CUU, ADDONUAPLUS #### [facility] [address] [place] [address] Urobilinogen,Urine Normal Normal Normal [facility] Comment on above: Order Comment: Name Collection Type:: Clean-Voided Midstream Performed By: #### U RDS, UHCG, CUU, ADDONUAPLUS #### [facility] [address] [place] [address] [place] WBC,Urine 10-19 High 0-4 [facility] Comment on above: Order Comment: Name Collection Type:: Clean-Voided Midstream Performed By: #### U RDS, UHCG, CUU, ADDONUAPLUS #### [facility] [address] [place] [address] Drug Screen,Urineon 12-20-19 23 Amphetamine Screen,Urine Negative Normal Negative [facility] [place] Comment on above: Performed By: #### U RDS, UHCG, CUU, ADDONUAPLUS #### [facility] [address] [place] [address] [place] Barbiturate Screen,Urine Negative Normal Negative [facility] [place] Comment on above: Performed By: #### U RDS, UHCG, CUU, ADDONUAPLUS #### [facility] [address] [place] [address] [place] Benzodiazepines Screen,Urine Negative Normal Negative [facility] [place] Comment on above: Performed By: #### U RDS, UHCG, CUU, ADDONUAPLUS #### [address] Cannabinoid Screen,Urine Positive High Negative [facility] [place] Comment on above: Result Comment: Thes e are unconfirmed results and should not be used for legal purposes. Drug Cut-Off Concentration: AMPH 1000 ng/mL SEEMA 200 ng/mL LAZ 200 ng/mL COCM 300 ng/mL OP 300 ng/mL PCP 25 ng/mL THC 20 ng/mL PERFORMED BY: [place] [address] PATHOLOGIST LIQUEFIER MALVIN MEDLEY M.D. Performed By: #### U RDS, UHCG, CUU, ADDONUAPLUS #### [place] [address] [place] Cocaine Screen,Urine Negative Normal Negative [facility] Comment on above: Performed By: #### U RDS, UHCG, CUU, ADDONUAPLUS #### [facility] [address] [place] [address] [place] Opiate Screen,Urine Negative Normal Negative [facility] Comment on above: Performed By: #### U RDS, UHCG, CUU, ADDONUAPLUS #### [place] [address] [place] Phencyclidine Screen,Urine Negative Normal Negative [facility] Comment on above: Performed By: #### U RDS, UHCG, CUU, ADDONUAPLUS #### [facility] [address] [place] [address] [place] ECG 12 lead ECGon 12-19-2022 ECG 12 lead ECG [facility] [address] [place] [address] [place] [address] Electrocardiograph Report Signed Patient: Zuleika Wyatt MR#: [id number] : 1990 Acct:[id number] Age/Sex: 32 / F ADM Date: 12/19/22 Loc: Room: [address] [place] [address] Type: DIS INOo Attending Dr: Arden Orozco [...] ECGs available Confirmed by OSCAR POE DO ([id number]) on 12/19/2022 10:18:39 PM Referred By: Electronically Signed By:OSCAR POE DO Transcribed By: MUS Signed By Oscar Poe DO 12/19 [facility] Electrolyteson 12-19-2022 Anion gap [Moles/Vol] 14.5 mmol/L Normal 6.0-15.0 [facility] Comment on above: Performed By: #### C BC, CREAT, GLU, LYTES, AST, ETOH, BRAB, LIPASE, CK, BUN ####[facility] [address] [place] [address] [place] Chloride [Moles/Vol] 105 mmol/L Normal 98-107 [facility] Comment on above: Performed By: #### C BC, CREAT, GLU, LYTES, AST, ETOH, BARB, LIPASE, CK, BUN ####[facility] [address] [place] [address] [facility] CO2 [Moles/Vol] 20.0 mmol/L Low 21.0-31.0 [facility] Comment on above: Performed By: #### C BC, CREAT, GLU, LYTES, AST, ETOH, BARB, LIPASE, CK, BUN ####[place] [id number] Potassium [Moles/Vol] 3.5 mmol/L Normal 3.5-5.1 [facility] Comment on above: Performed By: #### C BC, CREAT, GLU, LYTES, AST, ETOH, BARB, LIPASE, CK, BUN ####[address] Sodium [Moles/Vol] 136 mmol/L Normal 136-145 [facility] Comment on above: Performed By: #### C BC, CREAT, GLU, LYTES, AST, ETOH, BARB, LIPASE, CK, BUN ####[place] [id number] Ethyl Alcohol Profileon Ethanol [Mass/Vol] mg/dL Normal [facility] Comment on above: Performed By: #### C BC, CREAT, GLU, LYTES, AST, ETOH, BARB, LIPASE, CK, BUN ####[address] Percent Ethanol Not performed Normal [facility] Comment on above: Result Comment: PERF ORMED BY: [facility] [address] [place] [address] PATHOLOGIST LIQUEFIER MALVIN MEDLEY M.D. Performed By: #### C BC, CREAT, GLU, LYTES, AST, ETOH, BARB, LIPASE, CK, BUN ####[place] [id number] [facility] Glucoseon 12-19-2022 Glucose [Mass/Vol] 93 mg/dL Normal 70-100 [facility] Comment on above: Result Comment: [place] Glucose Reference Range is dependent on time and content of last meal. Glucose of more than 200 mg/dL in a nonstressed, ambulatory subject supports the diagnosis of Diabetes Mellitus. ADA recommended reference range Performed By: #### C BC, CREAT, GLU, LYTES, AST, ETOH, BARB, LIPASE, CK, BUN ####[facility] [address] HCG ( test) IAizai d Ql (U)Ordered By: Oscar Poe on 12-19-2022 HCG ( test) Ql (U) Negative [facility] HCG,Qualitative Serumon 07-0 HCG,Qualitative Serum Negative Normal [facility] [place] Comment on above: Result Comment: PERF ORMED BY: [place] [address] PATHOLOGIST LIQUEFIER MALVIN MEDLEY M.D. Performed By: #### H CGQUAL #### [facility] [address] [place] [address] HCG,Urineon 12-19-2022 Beta HCG ( test) Ql (U) Negative Normal [facility] Comment on above: Order Comment: Name Collection Type:: Clean-Voided Midstream Result Comment: PERF ORMED BY: [place] [address] PATHOLOGIST LIQUEFIER MALVIN MEDLEY M.D. Performed By: #### U RDS, UHCG, CUU, ADDONUAPLUS #### [facility] [address] [place] [address] Ketones Auto test strip (U) [Mass/Vol]Ordered By: Oscar Poe on 12-19-2022 Ketones (U) [Mass/Vol] 1+ Negative [facility] Laboratory - UrinalysisOrder ed By: Oscar Poe on 12-19-2022 Hyaline casts LM Ql (Urine sed) 0-8 [LPF] 0-8 [facility] Lipaseon 12-19-2022 Lipase [Catalytic activity/Vol] 29.0 U/L Normal 11.0-82.0 [facility] Comment on above: Result Comment: PERF ORMED BY: [place] [address] PATHOLOGIST LIQUEFIER MALVIN MEDLEY M.D. Performed By: #### C BC, CREAT, GLU, LYTES, AST, ETOH, BARB, LIPASE, CK, BUN ####[facility] [id number] Nitrite Test strip Ql (U)Ord ered By: Oscar Poe on 12-19-2022 Nitrite Ql (U) Negative Negative [facility] Opiates [Presence] in Urine by Screen methodOrdered By: Oscar Poe on 12-19-2022 Opiates Screen Ql (U) Negative Negative [facility] Phencyclidine Screen Ql (U)O rdered By: Oscar Poe on 12-19-2022 Phencyclidine Ql (U) Negative Negative [facility] Protein Auto test strip (U) [Mass/Vol]Ordered By: Oscar Poe on 12-19-2022 Protein (U) [Mass/Vol] Negative Negative [facility] Specific gravity Auto test s trip (U) [Rel density]Ordered By: Oscar Poe on 12-19-2022 Specific gravity (U) [Rel density] 1.025 1.001-1.03 0 [facility] Squamous epithelial cells de tection in urine sediment by light microscopyOrdered By: Oscar Poe on 12-19-2022 Epithelial cells.squamous LM Ql (Urine sed) 3-4 [HPF] 0-2 [facility] Type and Screenon 12-19-2022 ABO and Rh group Nom (Bld) Blood group A Rh(D) positive [facility] Comment on above: Result Comment: PERF ORMED BY: [facility] [address] [place] [id number] PATHOLOGIST LIQUEFIER MALVIN MEDLEY M.D. Urine Cultureon 12-19-2022 Bacteria identified Cx Nom (U) >100,000 colonies/ml mixed bacterial skin contaminants 2 Days PERFORMED BY: [facility] [address] [place] [id number] PATHOLOGIST LIQUEFIER MALVIN MEDLEY M.D. [facility] Comment on above: Performed By: #### U RDS, UHCG, CUU, ADDONUAPLUS ####[place] [id number] [place] [id number] [facility] Urine bacteria detection by automated methodOrdered By: Oscar Poe on 12-19-2022 Bacteria Auto Ql (U) None seen None Seen [facility] Urine clarity by refractomet ry automatedOrdered By: Oscar Poe on 12-19-2022 Clarity Refractometry automated (U) Clear Clear [facility] Urine culture routineOrdered By: Oscar Poe on 12-19-2022 Bacteria identified Cx Nom (U) 2 Days [facility] Urine glucose measurement by automated test strip (mass/volume)Ordered By: Oscar Poe on 12-19-2022 Glucose Auto test strip (U) [Mass/Vol] Normal mg/dL Normal [facility] Urine hemoglobin detection b y automated test stripOrdered By: Oscar Poe on 12-19-2022 Hemoglobin Auto test strip Ql (U) Negative Negative [facility] Urine leukocyte esterase det ection by automated test stripOrdered By: Oscar Poe on 12-19-2022 Leukocyte esterase Auto test strip Ql (U) 2+ Negative [facility] Urobilinogen Auto test strip (U) [Mass/Vol]Ordered By: Oscar Poe on 12-19-2022 Urobilinogen (U) [Mass/Vol] Normal mg/dL Normal [facility] XR knee BI 2Von 12-19-2022 XR knee BI 2V [facility] [place] [address] XRay Report Signed Patient: Zuleika Wyatt MR#: [id number] : 1990 Acct:[id number] Age/Sex: 32 / F ADM Date: 12/19/22 Loc: Room: [address] [place] [address] Type: ADM INOo Attending Dr: Arden Orozco DO Copies to: DO Arden Jefferson DO Ordering Provider: Oscar Poe DO Date of Service: 12/18/22 XR/XR knee BI 2V: f ([id number]) XR/XR chest 1V portable: TRAUMATIC INJURY ([id number]) XR/XR pelvis 1-2V: f ([id number]) XR/XR foot LT 2V: f CLINICAL DATA: [...] Adela Mahan M.D.12/19/2022 10:41 AM Dictation Location: [place] [address] Transcribed By: [facility] 12/19/22 1041 Dictated By: Adela Mahan MD 12/19/22 1036 Signed By: 12/19/22 1041 Normal [facility] pH Auto test strip (U)Ordere d By: Oscar Poe on 12-19-2022 pH (U) 5.5 [pH] 5.0-9.0 [facility] Amylase [Enzymatic activity/ volume] in Serum or PlasmaOrdered By: Oscar Poe on 12-18-2022 Amylase [Catalytic activity/Vol] 35 U/L 29-103 [facility] Aspartate aminotransferase [ Enzymatic activity/volume] in Serum or PlasmaOrdered By: Oscar Poe on 12-18-2022 AST [Catalytic activity/Vol] 26 U/L 13-39 [facility] Basophils Auto (Bld) [#/Vol] Ordered By: Oscar Poe on 12-18-2022 Basophils (Bld) [#/Vol] 0.1 10*3/uL 0.0-0.2 [facility] Basophils/100 WBC Auto (Bld) Ordered By: Oscar Poe on 12-18-2022 Basophils/100 WBC (Bld) 0.7 % . [facility] Carbon dioxide, total [Moles /volume] in Serum or PlasmaOrdered By: Oscar Poe on 12-18-2022 CO2 [Moles/Vol] 20.0 mmol/L 21.0-31.0 [facility] Chloride [Moles/volume] in S gwendolyn or PlasmaOrdered By: Oscar Poe on 12-18-2022 Chloride [Moles/Vol] 105 mmol/L 98-107 [facility] Choriogonadotropin.beta subu nit [Units/volume] in Serum or PlasmaOrdered By: Oscar Poe on 12-18-2022 HCG.beta subunit Qn Negative [facility] Creatine kinase [Enzymatic a ctivity/volume] in Serum or PlasmaOrdered By: Oscar Poe on 12-18-2022 CK [Catalytic activity/Vol] 50 U/L 30-223 [facility] Creatinine [Mass/volume] in Serum or PlasmaOrdered By: Oscar Poe on 12-18-2022 Creatinine [Mass/Vol] 0.84 mg/dL 0.60-1.20 [facility] Eosinophils Auto (Bld) [#/Vo l]Ordered By: Oscar Poe on 12-18-2022 Eosinophils (Bld) [#/Vol] 0.0 10*3/uL 0.0-0.45 [facility] Eosinophils/100 WBC Auto (Bl d)Ordered By: Oscar Poe on 12-18-2022 Eosinophils/100 WBC (Bld) 0.2 % . [facility] Erythrocyte distribution wid th Auto (RBC) [Ratio]Ordered By: Oscar Poe on 12-18-2022 Erythrocyte distribution width (RBC) [Ratio] 14.4 % 11.9-15.3 [facility] Ethanol [Mass/volume] in Ser um or PlasmaOrdered By: Oscar Poe on 12-18-2022 Ethanol [Mass/Vol] mg/dL [facility] Ethanol [Mass/Vol] TNP [facility] Comment on above: Test not performed Glucose [Mass/volume] in Ser um or PlasmaOrdered By: Oscar Poe on 12-18-2022 Glucose [Mass/Vol] 93 mg/dL 70-100 [facility] Comment on above: ADA recommended refe rence rangeRandom Glucose Reference Range is dependent on time and content of last meal. Glucose of more than 200 mg/dL in a nonstressed, ambulatory subject supports the diagnosis of Diabetes Mellitus. Hematocrit Auto (Bld) [Volum e fraction]Ordered By: Oscar Poe on 12-18-2022 Hematocrit (Bld) [Volume fraction] 36.2 % 34.0-46.4 [facility] Hemoglobin [Mass/volume] in BloodOrdered By: Oscar Poe on 12-18-2022 Hemoglobin (Bld) [Mass/Vol] 11.9 g/dL 11.8-15.4 [facility] Leukocytes [#/volume] correc osmel for nucleated erythrocytes in Blood by Automated counOrdered By: Oscar Poe on 12-18-2022 WBC corrected for nucl RBC Auto (Bld) [#/Vol] 10.3 10*3/uL 3.8-11.6 [facility] Lipase [Enzymatic activity/v olume] in Serum or PlasmaOrdered By: Oscar Poe on 12-18-2022 Lipase [Catalytic activity/Vol] 29.0 U/L 11.0-82.0 [facility] Lymphocytes Auto (Bld) [#/Vo l]Ordered By: Oscar Poe on 12-18-2022 Lymphocytes (Bld) [#/Vol] 2.2 10*3/uL 1.00-4.8 [facility] Lymphocytes/100 WBC Auto (Bl d)Ordered By: Oscar Poe on 12-18-2022 Lymphocytes/100 WBC (Bld) 21.8 % . [facility] MCH Auto (RBC) [Entitic mass ]Ordered By: Oscar Poe on 12-18-2022 MCH (RBC) [Entitic mass] 26.9 pg 24.7-34.3 [facility] MCHC Auto (RBC) [Mass/Vol]Or dered By: Oscar Poe on 12-18-2022 MCHC (RBC) [Mass/Vol] 32.8 g/dL 32.0-35.0 [facility] MCV Auto (RBC) [Entitic vol] Ordered By: Oscar Poe on 12-18-2022 MCV (RBC) [Entitic vol] 82.1 fL 80-100 [facility] Monocyte distribution width [Entitic volume] in Blood by AutomatedOrdered By: Oscar Poe on 12-18-2022 Monocyte distribution width Auto (Bld) [Entitic vol] 22.19 % 0.00-20.00 [facility] Comment on above: For adults in ED, MD W > 20.0 may be associated with a higher risk of sepsis during the first 12 hrs of hospital admission Monocytes Auto (Bld) [#/Vol] Ordered By: Oscar Poe on 12-18-2022 Monocytes (Bld) [#/Vol] 0.8 10*3/uL 0.0-0.8 [facility] [place] Monocytes/100 WBC Auto (Bld) Ordered By: Oscar Poe on 12-18-2022 Monocytes/100 WBC (Bld) 7.4 % . [facility] Neutrophils Auto (Bld) [#/Vo l]Ordered By: Oscar Poe on 12-18-2022 Neutrophils (Bld) [#/Vol] 7.2 10*3/uL 1.8-7.7 [facility] [place] Neutrophils/100 WBC Auto (Bl d)Ordered By: Oscar Poe on 12-18-2022 Neutrophils/100 WBC (Bld) 69.9 % . [facility] [place] No Panel InformationOrdered By: Oscar Poe on 12-18-2022 Estimated GFR (CKD-EPI) > 60.0 mL/Min [facility] [place] Pharmacy Creatinine Clearance (Chem 98.76 [facility] [place] Nucleated erythrocytes [Pres ence] in Blood by Automated countOrdered By: Oscar Poe on 12-18-2022 Nucleated RBC Auto Ql (Bld) 0.1 /100{WBC} 0-0.5 [facility] [place] Platelet mean volume Auto (B ld) [Entitic vol]Ordered By: Oscar Poe on 12-18-2022 Platelet mean volume (Bld) [Entitic vol] 8.1 fL 6.3-10.7 [facility] Platelets Auto (Bld) [#/Vol] Ordered By: Oscar Poe on 12-18-2022 Platelets (Bld) [#/Vol] 223 10*3/uL 150-450 [facility] [place] Potassium [Moles/volume] in Serum or PlasmaOrdered By: Oscar Poe on 12-18-2022 Potassium [Moles/Vol] 3.5 mmol/L 3.5-5.1 [facility] RBC Auto (Bld) [#/Vol]Ordere d By: Oscar Poe on 12-18-2022 RBC (Bld) [#/Vol] 4.42 10*6/uL 3.60-5.00 [facility] Serum or plasma anion gap de terminationOrdered By: Oscar Poe on 12-18-2022 Anion gap [Moles/Vol] 14.5 mmol/L 6.0-15.0 [facility] Sodium [Moles/volume] in Ser um or PlasmaOrdered By: Oscar Poe on 12-18-2022 Sodium [Moles/Vol] 136 mmol/L 136-145 [facility] U[facility] nitrogen [Mass/volume] in Serum or PlasmaOrdered By: Oscar Poe on 12-18-2022 Urea nitrogen [Mass/Vol] 21 mg/dL 7-25 [facility] WBC Auto (Bld) [#/Vol]Ordere d By: Oscar Poe on 12-18-2022 WBC (Bld) [#/Vol] 10.3 10*3/uL 3.8-11.6 [facility] PRBC LEUKOREDUCEDon 07-14-19 23 ABO and Rh group Nom (Bld) Cross Match Result Compatible Unit Blood Type A Pos Unit Number [id number] Status Information Released Specimen Exp Date Product ID Red Blood Cells Product Code [id number] Cross Match Result Compatible Unit Blood Type A Pos Unit Number [id number] Status Information Transfused Product ID Red Blood Cells Product Code [id number] Normal [facility] Comment on above: Performed By: #### R UBIGG #### [facility] [address] [place] [address] Dr. Juan Antonio Ibarra CBC AUTO DIFFon 07-07-2022 BASO # 0.0 103/ul Normal 0.0-0.1 [facility] Comment on above: Performed By: #### A 1C #### [facility] [address] [place] [address] Dr. Juan Antonio Ibarra Basophils/100 WBC (Bld) 0.3 % Normal 0.2-2.0 [facility] Comment on above: Performed By: #### A 1C #### [facility] [address] [place] [address] Dr. Juan Antonio Ibarra EO # 0.1 103/ul Normal 0.0-0.7 [facility] Comment on above: Performed By: #### A 1C #### [facility] [address] [place] [address] Dr. Juan Antonio Ibarra Eosinophils/100 WBC (Bld) 0.9 % Normal 0.9-7.0 [facility] Comment on above: Performed By: #### A 1C #### [facility] [address] [place] [address] Dr. Juan Antonio Ibarra Erythrocyte distribution width (RBC) [Ratio] 14.5 % Normal 11.0-15.0 [facility] Comment on above: Performed By: #### A 1C #### [facility] [address] [place] [address] Dr. Juan Antonio Ibarra Hematocrit (Bld) [Volume fraction] 22.5 % Critically low 36.0-48.0 [facility] Comment on above: Performed By: #### A 1C #### [facility] [address] [place] [address] Dr. Juan Antonio Ibarra Hemoglobin (Bld) [Mass/Vol] 7.9 g/dL Critically low 12.0-16.0 [facility] Comment on above: Performed By: #### A 1C #### [facility] [address] [place] [address] Dr. Juan Antonio Ibarra IG # 0.10 10e3/ul Critically high 0.00-0.03 [facility] Comment on above: Performed By: #### A 1C #### [facility] [address] [place] [address] Dr. Juan Antonio Ibarra IG % 0.9 % Critically high 0.0-0.5 [facility] Comment on above: Performed By: #### A 1C #### [facility] [address] [place] [address] Dr. Juan Antonio Ibarra LYMPH # 1.6 103/ul Normal 1.2-3.8 [facility] Comment on above: Performed By: #### A 1C #### [facility] [address] [place] [address] Dr. Juan Antonio Ibarra Lymphocytes/100 WBC (Bld) 14.0 % Critically low 20.5-60.0 [facility] Comment on above: Performed By: #### A 1C #### [facility] [address] [place] [address] Dr. Juan Antonio Ibarra MANUAL DIFF REQ NO Normal [facility] Comment on above: Performed By: #### A 1C #### [facility] [address] [place] [address] Dr. Juan Antonio Ibarra MCH (RBC) [Entitic mass] 26.4 pg Critically low 26.7-34.0 [facility] Comment on above: Performed By: #### A 1C #### [facility] [address] [place] [address] Dr. Juan Antonio Ibarra MCHC (RBC) [Mass/Vol] 35.1 g/dL Normal 29.9-35.2 [facility] Comment on above: Performed By: #### A 1C #### [facility] [address] [place] [address] Dr. Juan Antonio Ibarra MCV (RBC) [Entitic vol] 75.3 fL Critically low 81.0-99.0 [facility] Comment on above: Performed By: #### A 1C #### [facility] [address] [place] [address] Dr. Juan Antonio Ibarra MONO # 0.7 103/ul Normal 0.3-0.8 [facility] Comment on above: Performed By: #### A 1C #### [facility] [address] [place] [address] Dr. Juan Antonio Ibarra Monocytes/100 WBC (Bld) 6.2 % Normal 1.7-12.0 [facility] Comment on above: Performed By: #### A 1C #### [facility] [address] [place] [address] Dr. Juan Antonio Ibarra NEUT # 9.1 103/ul Critically high 1.4-6.5 [facility] Comment on above: Performed By: #### A 1C #### [facility] [address] [place] [address] Dr. Juan Antonio Ibarra Neutrophils/100 WBC (Bld) 77.7 % Critically high 43.0-75.0 [facility] Comment on above: Performed By: #### A 1C #### [facility] [address] [place] [address] Dr. Juan Antonio Ibarra Platelet mean volume (Bld) [Entitic vol] 9.2 fL Critically low 9.5-13.5 [facility] Comment on above: Performed By: #### A 1C #### [facility] [address] [place] [address] Dr. Juan Antonio Ibarra PLT 143 103/ul Critically low 150-450 [facility] Comment on above: Performed By: #### A 1C #### [facility] [address] [place] [address] Dr. Juan Antonio Ibarra RBC 2.99 106/ul Critically low 4.20-5.40 [facility] Comment on above: Performed By: #### A 1C #### [facility] [address] [place] [address] Dr. Juan Antonio Ibarra WBC 11.7 103/ul Critically high 4.0-11.0 [facility] Comment on above: Performed By: #### A 1C #### [facility] [address] [place] [address] Dr. Juan Antonio Ibarra CBC AUTO DIFFon 07-06-2022 BASO # 0.0 103/ul Normal 0.0-0.1 [facility] Comment on above: Performed By: #### A 1C #### [facility] [address] [place] [address] Dr. Juan Antonio Ibarra Basophils/100 WBC (Bld) 0.3 % Normal 0.2-2.0 [facility] Comment on above: Performed By: #### A 1C #### [facility] [address] [place] [address] Dr. Juan Antonio Ibarra EO # 0.1 103/ul Normal 0.0-0.7 [facility] Comment on above: Performed By: #### A 1C #### [facility] [address] [place] [address] Dr. Juan Antonio Ibarra Eosinophils/100 WBC (Bld) 0.8 % Critically low 0.9-7.0 [facility] Comment on above: Performed By: #### A 1C #### [facility] [address] [place] [address] Dr. Juan Antonio Ibarra Erythrocyte distribution width (RBC) [Ratio] 14.3 % Normal 11.0-15.0 [facility] Comment on above: Performed By: #### A 1C #### [facility] [address] [place] [address] Dr. Juan Antonio Ibarra Hematocrit (Bld) [Volume fraction] 23.0 % Critically low 36.0-48.0 [facility] Comment on above: Performed By: #### A 1C #### [facility] [address] [place] [address] Dr. Juan Antonio Ibarra Hemoglobin (Bld) [Mass/Vol] 7.5 g/dL Critically low 12.0-16.0 [facility] Comment on above: Performed By: #### A 1C #### [facility] [address] [place] [address] Dr. Juan Antonio Ibarra IG # 0.07 10e3/ul Critically high 0.00-0.03 [facility] Comment on above: Performed By: #### A 1C #### [facility] [address] [place] [address] Dr. Juan Antonio Ibarar IG % 0.6 % Critically high 0.0-0.5 [facility] Comment on above: Performed By: #### A 1C #### [facility] [address] [place] [address] Dr. Juan Antonio Ibarra LYMPH # 2.1 103/ul Normal 1.2-3.8 [facility] Comment on above: Performed By: #### A 1C #### [facility] [address] [place] [address] Dr. Juan Antonio Ibarra Lymphocytes/100 WBC (Bld) 18.8 % Critically low 20.5-60.0 [facility] Comment on above: Performed By: #### A 1C #### [facility] [address] [place] [address] Dr. Juan Antonio Ibarra MANUAL DIFF REQ NO Normal [facility] Comment on above: Performed By: #### A 1C #### [facility] [address] [place] [address] Dr. Juan Antonio Ibarra MCH (RBC) [Entitic mass] 26.0 pg Critically low 26.7-34.0 [facility] Comment on above: Performed By: #### A 1C #### [facility] [address] [place] [address] Dr. Juan Antonio Ibarra MCHC (RBC) [Mass/Vol] 32.6 g/dL Normal 29.9-35.2 [facility] Comment on above: Performed By: #### A 1C #### [facility] [address] [place] [address] Dr. Juan Antonio Ibarra MCV (RBC) [Entitic vol] 79.9 fL Critically low 81.0-99.0 [facility] Comment on above: Performed By: #### A 1C #### [facility] [address] [place] [address] Dr. Juan Antonio Ibarra MONO # 0.7 103/ul Normal 0.3-0.8 [facility] Comment on above: Performed By: #### A 1C #### [facility] [address] [place] [address] Dr. Juan Antonio Ibarra Monocytes/100 WBC (Bld) 6.6 % Normal 1.7-12.0 [facility] Comment on above: Performed By: #### A 1C #### [facility] [address] [place] [address] Dr. Juan Antonio Ibarra NEUT # 8.2 103/ul Critically high 1.4-6.5 [facility] Comment on above: Performed By: #### A 1C #### [facility] [address] [place] [address] Dr. Juan Antonio Ibarra Neutrophils/100 WBC (Bld) 72.9 % Normal 43.0-75.0 [facility] Comment on above: Performed By: #### A 1C #### [facility] [address] [place] [address] Dr. Juan Antonio Ibarra Platelet mean volume (Bld) [Entitic vol] 9.8 fL Normal 9.5-13.5 [facility] Comment on above: Performed By: #### A 1C #### [facility] [address] [place] [address] Dr. Juan Antonio Ibarra PLT 151 103/ul Normal 150-450 [facility] Comment on above: Performed By: #### A 1C #### [facility] [address] [place] [address] Dr. Juan Antonio Ibarra RBC 2.88 106/ul Critically low 4.20-5.40 [facility] Comment on above: Performed By: #### A 1C #### [facility] [address] [place] [address] Dr. Juan Antonio Ibarra WBC 11.3 103/ul Critically high 4.0-11.0 [facility] Comment on above: Performed By: #### A 1C #### [facility] [address] [place] [address] Dr. Juan Antonio Ibarra CBC AUTO DIFFon 07-05-2022 BASO # 0.0 103/ul Normal 0.0-0.1 [facility] Comment on above: Performed By: #### R PRQ #### [facility] [address] [place] [address] Dr. Juan Antonio Ibarra Basophils/100 WBC (Bld) 0.2 % Normal 0.2-2.0 [facility] Comment on above: Performed By: #### R PRQ #### [facility] [address] [place] [address] Dr. Juan Antonio Ibarra EO # 0.0 103/ul Normal 0.0-0.7 [facility] Comment on above: Performed By: #### R PRQ #### [facility] [address] [place] [address] Dr. Juan Antonio Ibarra Eosinophils/100 WBC (Bld) 0.4 % Critically low 0.9-7.0 [facility] Comment on above: Performed By: #### R PRQ #### [facility] [address] [place] [address] Dr. Juan Antonio Ibarra Erythrocyte distribution width (RBC) [Ratio] 14.2 % Normal 11.0-15.0 [facility] Comment on above: Performed By: #### R PRQ #### [facility] [address] [place] [address] Dr. Juan Antonio Ibarra Hematocrit (Bld) [Volume fraction] 31.0 % Critically low 36.0-48.0 [facility] Comment on above: Performed By: #### R PRQ #### [facility] [address] [place] [address] Dr. Juan Antonio Ibarra Hemoglobin (Bld) [Mass/Vol] 10.1 g/dL Critically low 12.0-16.0 [facility] Comment on above: Performed By: #### R PRQ #### [facility] [address] [place] [address] Dr. Juan Antonio Ibarra IG # 0.10 10e3/ul Critically high 0.00-0.03 [facility] Comment on above: Performed By: #### R PRQ #### [facility] [address] [place] [address] Dr. Juan Antonio Ibarra IG % 1.1 % Critically high 0.0-0.5 [facility] Comment on above: Performed By: #### R PRQ #### [facility] [address] [place] [address] Dr. Juan Antonio Ibarra LYMPH # 1.6 103/ul Normal 1.2-3.8 [facility] Comment on above: Performed By: #### R PRQ #### [facility] [address] [place] [address] Dr. Juan Antonio Ibarra Lymphocytes/100 WBC (Bld) 17.5 % Critically low 20.5-60.0 [facility] Comment on above: Performed By: #### R PRQ #### [facility] [address] [place] [address] Dr. Juan Antonio Ibarra MANUAL DIFF REQ NO Normal [facility] Comment on above: Performed By: #### R PRQ #### [facility] [address] [place] [address] Dr. Jua nAntonio Ibarra MCH (RBC) [Entitic mass] 25.8 pg Critically low 26.7-34.0 [facility] Comment on above: Performed By: #### R PRQ #### [facility] [address] [place] [address] Dr. Juan Antonio Ibarra MCHC (RBC) [Mass/Vol] 32.6 g/dL Normal 29.9-35.2 [facility] Comment on above: Performed By: #### R PRQ #### [facility] [address] [place] [address] Dr. Juan Antonio Ibarra MCV (RBC) [Entitic vol] 79.3 fL Critically low 81.0-99.0 [facility] Comment on above: Performed By: #### R PRQ #### [facility] [address] [place] [address] Dr. Juan Antonio Ibarra MONO # 0.7 103/ul Normal 0.3-0.8 [facility] Comment on above: Performed By: #### R PRQ #### [facility] [address] [place] [address] Dr. Juan Antonio Ibarra Monocytes/100 WBC (Bld) 8.1 % Normal 1.7-12.0 [facility] Comment on above: Performed By: #### R PRQ #### [facility] [address] [place] [address] Dr. Juan Antonio Ibarra NEUT # 6.7 103/ul Critically high 1.4-6.5 [facility] Comment on above: Performed By: #### R PRQ #### [facility] [address] [place] [address] Dr. Juan Antonio Ibarra Neutrophils/100 WBC (Bld) 72.7 % Normal 43.0-75.0 [facility] Comment on above: Performed By: #### R PRQ #### [facility] [address] [place] [address] Dr. Juan Antonio Ibarra Platelet mean volume (Bld) [Entitic vol] 10.1 fL Normal 9.5-13.5 [facility] Comment on above: Performed By: #### R PRQ #### [facility] [address] [place] [address] Dr. Juan Antonio Ibarra PLT 202 103/ul Normal 150-450 [facility] Comment on above: Performed By: #### R PRQ #### [facility] [address] [place] [address] Dr. Juan Antonio Ibarra RBC 3.91 106/ul Critically low 4.20-5.40 [facility] Comment on above: Performed By: #### R PRQ #### [facility] [address] [place] [address] Dr. Juan Antonio Ibarra WBC 9.2 103/ul Normal 4.0-11.0 [facility] Comment on above: Performed By: #### R PRQ #### [facility] [address] [place] [address] Dr. Juan Antonio Ibarra DRUG SCREEN RAPID (URINE)on 07-05-2022 AMP Negative Normal NEGATIVE [facility] Comment on above: Performed By: #### A 1C #### [facility] [address] [place] [address] Dr. Juan Antonio Ibarra BAR Negative Normal NEGATIVE [facility] Comment on above: Performed By: #### A 1C #### [facility] [address] [place] [address] Dr. Juan Antonio Ibarra BUP Negative Normal NEGATIVE [facility] Comment on above: Performed By: #### A 1C #### [facility] [address] [place] [address] Dr. Juan Antonio Ibarra BZO Negative Normal NEGATIVE [facility] Comment on above: Performed By: #### A 1C #### [facility] [address] [place] [address] Dr. Juan Antonio Ibarra PARAM Negative Normal NEGATIVE [facility] Comment on above: Performed By: #### A 1C #### [facility] [address] [place] [address] Dr. Juan Antonio Ibarra CUT-OFFS SEE BELOW Normal [facility] Comment on above: Result Comment: AMP (Amphetamine): [...] By: #### A 1C #### [facility] [address] [place] [address] Dr. Juan Antonio Ibarra DRUG CUT HEADER DRUG CLASS TEST SYST EM CUT-OFF CONCENTRATIONS ARE FOLLOWS: Normal [facility] Comment on above: Performed By: #### A 1C #### [facility] [address] [place] [address] Dr. Juan Antonio Ibarra mAMP Negative Normal NEGATIVE [facility] Comment on above: Performed By: #### A 1C #### [facility] [address] [place] [address] Dr. Juan Antonio Ibarra MTD Negative Normal NEGATIVE [facility] Comment on above: Performed By: #### A 1C #### [facility] [address] [place] [address] Dr. Juan Antonio Ibarra OPI Negative Normal NEGATIVE [facility] Comment on above: Performed By: #### A 1C #### [facility] [address] [place] [address] Dr. Juan Antonio Ibarra OXY Negative Normal NEGATIVE [facility] Comment on above: Performed By: #### A 1C #### [facility] [address] [place] [address] Dr. Juan Antonio Ibarra PCP Negative Normal NEGATIVE [facility] Comment on above: Performed By: #### A 1C #### [facility] [address] [place] [address] Dr. Juan Antonio Ibarra PPX Negative Normal NEGATIVE [facility] Comment on above: Performed By: #### A 1C #### [facility] [address] [address] [address] Juan Antonio Ibarra TCA Negative Normal NEGATIVE [facility] Comment on above: Performed By: #### A 1C #### [facility] [address] [place] [address] Dr. Juan Antonio Ibarra THC Negative Normal NEGATIVE [facility] Comment on above: Performed By: #### A 1C #### [facility] [address] [place] [address] Dr. Juan Antonio Ibarra TYPE AND SCREENon 07-05-2022 TYPE AND SCREEN Negative Normal [facility] Comment on above: Performed By: #### T NS #### [facility] [address] [place] [address] Dr. Juan Antonio Ibarra US PREG BIOPHY [...] by: FELECIA GOLDMAN Date: 2022-06-28 15:29 Normal [facility] US PREG BIOPHY W NON STRESSo n [...] Date: 2022-06-21 17:20 Normal [facility] US PREG GROWTHon 06-21-2022 US PREG GROWTH [...] Date: 2022-06-21 13:37 Normal [facility] CULTURE URINEon 06-16-2022 CULTURE URINE Culture Observations : LIGHT GROWTH OF MIXED GENITAL ALONSO. NO POTENTIAL PATHOGENS SEEN. Normal [facility] Comment on above: Performed By: #### U RCX #### [facility] [address] [place] [address] Dr. Juan Antonio Ibarra UA (CLEAN/CATCH) MOSAIC TILER/MICRO I F IND.on 06-16-2022 Bilirubin Ql (U) Negative Normal NEGATIVE [facility] Comment on above: Performed By: #### U MICRO, UACSIND #### [facility] [address] [place] [address] Dr. Juan Antonio Ibarra Clarity (U) CLEAR Normal CLEAR [facility] Comment on above: Performed By: #### U MICRO, UACSIND #### [facility] [address] [address] [address] Juan Antonio Ibarra Color (U) LT. YELLOW Normal YELLOW [facility] Comment on above: Performed By: #### U MICRO, UACSIND #### [facility] [address] [address] [address] Juan Antonio Ibarra Glucose Ql (U) Negative Normal NEGATIVE [facility] Comment on above: Performed By: #### U MICRO, UACSIND #### [facility] [address] [address] [address] Juan Antonio Ibarra Hemoglobin Ql (U) Negative Normal NEGATIVE [facility] Comment on above: Performed By: #### U MICRO, UACSIND #### [facility] [address] [address] [address] Juan Antonio Ibarra Ketones Ql (U) Negative Normal NEGATIVE [facility] Comment on above: Performed By: #### U MICRO, UACSIND #### [facility] [address] [address] [address] Juan Antonio Ibarra LEUKOCYTES MODERATE Abnormal NEGATIVE [facility] Comment on above: Performed By: #### U MICRO, UACSIND #### [facility] [address] [address] [address] Juan Antonio Ibarra Nitrite Ql (U) Negative Normal NEGATIVE [facility] Comment on above: Performed By: #### U MICRO, UACSIND #### [facility] [address] [address] [address] Juan Antonio Ibarra pH (U) 6.0 [pH] Normal 5-9 [facility] Comment on above: Performed By: #### U MICRO, UACSIND #### [facility] [address] [address] [address] Juan Antonio Ibarra SPEC GRAVITY 1.020 Normal 1.005-<=1. 025 [facility] Comment on above: Performed By: #### U MICRO, UACSIND #### [facility] [address] [place] [address] Dr. Juan Antonio Ibarra UA PROTEIN Negative Normal NEGATIVE/ TRACE [facility] Comment on above: Performed By: #### U MICRO, UACSIND #### [facility] [address] [address] [address] Juan Antonio Ibarra UR MICRO IND INDICATED Normal [facility] Comment on above: Performed By: #### U MICRO, UACSIND #### [facility] [address] [address] [address] Juan Antonio Ibarra Urobilinogen Qn (U) 1.0 {Pamela'U}/dL Normal 0.2 - 1. 0 [facility] Comment on above: Performed By: #### U MICRO, UACSIND #### [facility] [address] [address] [address] Juan Antonio Ibarra URINE MICROSCOPIC ONLYon BACTERIA SMALL Abnormal NONE SEEN [facility] Comment on above: Performed By: #### U MICRO, UACSIND #### [facility] [address] [place] [address] Dr. Juan Antonio Ibarra Bacteria identified Cx Nom (U) INDICATED Normal [facility] Comment on above: Performed By: #### U MICRO, UACSIND #### [facility] [address] [place] [address] Dr. Juan Antonio Ibarra CAST NONE SEEN Normal NONE SEEN [facility] Comment on above: Performed By: #### U MICRO, UACSIND #### [facility] [address] [place] [address] Dr. Juan Antonio Ibarra Crystals LM Nom (Urine sed) NONE SEEN Normal NONE SEEN [facility] Comment on above: Performed By: #### U MICRO, UACSIND #### [facility] [address] [address] [address] Juan Antonio Ibarra Epithelial cells LM Ql (Urine sed) RARE Normal NONE SEEN /RARE [facility] Comment on above: Performed By: #### U MICRO, UACSIND #### [facility] [address] [place] [address] Dr. Juan Antonio Ibarra MUCOUS NONE SEEN Normal NONE SEEN [facility] Comment on above: Performed By: #### U MICRO, UACSIND #### [facility] [address] [place] [address] Dr. Juan Antonio Ibarra RBC NONE SEEN Abnormal 0-2 [facility] Comment on above: Performed By: #### U MICRO, UACSIND #### [facility] [address], [place] [address] Dr. Juan Antonio Ibarra WBC 2-5 Abnormal NONE SEEN [facility] Comment on above: Performed By: #### U MICRO, UACSIND #### [facility] [address] [place], [place] [address] Dr. Juan Antonio Ibarra GROUP B STREP CULTUREon 05-18 S. agalactiae Ag Ql (Unsp spec) Culture Observations: NEGATIVE FOR GROUP B STREPTOCOCCUS. Normal [facility] Comment on above: Performed By: #### G BSCX #### [facility] [address] [place] [address] Dr. Juan Antonio Ibarra US PREG BIOPHY [...] Date: 2022-06-14 16:10 Normal [facility] US PREG BIOPHY W NON STRESSo n [...] by: FELECIA GOLDMAN Date: 2022-06-07 16:42 Normal [facility] US PREG BIOPHY W NON STRESSo n [...] by: FELECIA GOLDMAN Date: 2022-06-04 17:11 Normal [facility] US PREG BIOPHY W NON STRESS EXAMINATION: [...] by: FELECIA GOLDMAN Date: 2022-06-04 16:23 Normal [facility] US PREG BIOPHY W NON STRESSo n [...] by: GAMALIEL CRUMP Date: 2022-05-31 18:39 Normal [facility] US PREG BIOPHY W NON STRESSo n [...] Date: 2022-05-24 16:34 Normal [facility] US PREG GROWTHon 05-24-2022 US PREG GROWTH [...] Date: 2022-05-24 16:33 Normal [facility] GLUCOSE - 1HRon 04-04-2022 Glucose [Mass/Vol] 101 mg/dL Normal 74-106 [facility] Comment on above: Performed By: #### R PRQ #### [facility] [address] [place] [address] Dr. Juan Antonio Ibarra HEMOGRAM AND PLATELon 2021 Hematocrit (Bld) [Volume fraction] 33.5 % Critically low 36.0-48.0 [facility] Comment on above: Performed By: #### A 1C #### [facility] [address] [place] [address] Dr. Juan Antonio Ibarra Hemoglobin (Bld) [Mass/Vol] 10.7 g/dL Critically low 12.0-16.0 [facility] Comment on above: Performed By: #### A 1C #### [facility] [address] [place] [address] Dr. Juan Antonio Ibarra MCH (RBC) [Entitic mass] 29.3 pg Normal 26.7-34.0 [facility] Comment on above: Performed By: #### A 1C #### [facility] [address] [place] [address] Dr. Juan Antonio Ibarra MCHC (RBC) [Mass/Vol] 31.9 g/dL Normal 29.9-35.2 [facility] Comment on above: Performed By: #### A 1C #### [facility] [address] [place] [address] Dr. Juan Antonio Ibarra MCV (RBC) [Entitic vol] 91.8 fL Normal 81.0-99.0 [facility] Comment on above: Performed By: #### A 1C #### [facility] [address] [place] [address] Dr. Juan Antonio Ibarra PLT 179 103/ul Normal 150-450 [facility] Comment on above: Performed By: #### A 1C #### [facility] [address] [place] [address] Dr. Juan Antonio Ibarra RBC 3.65 106/ul Critically low 4.20-5.40 [facility] Comment on above: Performed By: #### A 1C #### [facility] [address] [place] [address] Dr. Juan Antonio Ibarra WBC 9.9 103/ul Normal 4.0-11.0 [facility] Comment on above: Performed By: #### A 1C #### [facility] [address] [place] [address] Dr. Juan Antonio Ibarra US PREG REEVAL [...] by: FELECIA GOLDMAN Date: 2022-03-20 20:55 Normal [facility] US PREG ANATOMY SINGLEon US PREG ANATOMY [...] by: FELECIA GOLDMAN Date: 2022-02-22 16:46 Normal [facility] Coding Summaryon 02-14-2022 Coding Summary HTMLBase 64 KpxbhbpoDXg6tEv+PGhlYWQ+PE 6HNAJbY29gyNZdwV2ME8iEWY0G PCPEYUFCRP1SKH8ewKG0WBceR9 VybiAv YenctZRvHJ79EJy2RMX8fAtdRN owbE7kpAZfA5l7SxAxKA96bG68 TOcbOWDaGoV3OjWbampbcAOt O3dkKmVjdSUgJbg+PHRhYmxlIH fkAWHeWYkzJTGbDcDdxKpuGB4y Pw1iCQJpDMZqnMdczNCsCeVx n4hePOBaHDdgBH6opRsxG3SbdB W2RIKxg8e0Xr07tOL+PHRkIHN0 eAtxRZfqc300FlHni5nbWRW7 jQPtTBbrLUG3Y90gz4F7ENBzSG IdBHJ6sPH8vU8roTfgazdrZ7Iv xUPtOxA4HKL8pZNvyU2mwAwl awcpfH4sEyq+F33DWL8BPXRUKW 2ZVwq0X8OxJuplpKS+DR93ZETs IY10lCGoiRAjc6fcgQs2MdGk OTIzYQD3gPuwAGfhj1DeVRInF4 3waPQcj4F9SVZqgXkhjEOjOeJr uDI5aT5vBTwqvtybm3qhkxdf Scofs2ildi91uO87J45nRWfaSD SqZVC3PGIsBEQbmHifiv1pjP7q Ii8+MXdvc3pda7cnmXg2JkFc LARqexUknDktUVA2j4DgWd88L7 CzhLznb1DnPuk7yc49oBNhb8P3 sKM2DLuuQWOhhN3xOFoyHxA0 FTMsTlVxtP87qUEtUZqkGy2yvY tbzHiiWR1qMMBvspfgJZLbhG2z LGVoxQAieIllTO0rAROthzzm d706JhYdOFK0EOSklEXvB2ZboA 9nWnBdZRQlNETwG6BvuLAlAPbf D659NZtjXgH3QXMjwaUjA7Ay CYCogMbsUmR9c8O7If2Ea8Zbid qoPRA4WMmzENN4YxIfJzVcWmP6 K8LxVgk5ZNMdeKvnCE9eO8Mj DVEkufwpjnolqGT3GUDpLUObmF 65aXVoKLxoHw3vo3U7t493GYQt SCUcbY79Si4chHypATCxcVCJ gG9ftepby5mzxsezFkHoBZJyXN o2DAl2DQLkfIpqTlXtCKG2VnX1 BKN4tLAtgA9rvBdadrcmxZ2d Oyc+D87tlO9nPXL4RZD1xgkuGG YmboJgAF21HK98H6BbKaamlEOd bGU+NQYcolWsdNujVW7hGzOx d9ihi2AcHEglO4NrHFMqTMixZf d0DORoDZU8nJL8xX3rJQEfNPtd n2V5lFG6B7PurvBorh7nj8qw MPYrNEmrU97rsVRdy4D5HIImpD M8IYYidPofVuZcmH84Lvr+PGNv eFpzi4InPxlvf1zjm4wfmAu2 UqCvKECrswJwkLojAZB9l3KaEc 86J12uMEtlGMDiTVBjIIIqXOGq tHbitz9dgD5qMe8+PGNvbCB3 hZJ7oL7kJDOqNcE9TBujN810Ui VimBSeRtrhf0ier3qjrUk5LzOr MPOjnaWqcYhzGVR6w9DrBe97 X71qLPqfNPTfKMPvGNPjHQKquC foqe6zpF5iJl9+WH9qc5gadl71 kI67kUD+SGNvRXV1tVitWTna PTKgrP5oKHhyRfG0NDIeBdVctA 17dOZdRActNu7aaAtpuVqxOF4o JCJebgrrk854YqBen1uxJCTt zETtRVavZZT2M99cq3G1JAAsXZ XiQVV5tMS3yY6srIcugtpzrLCa lAlauhJalWgaSSzlRTnyS116 IHRvcDsnPlBhdGllbnQgTmFtZT g0B5JhUqc6HSZluUrhGS7nfJQv JWqmLg4ijAhztRmlFS1xOAXn hulyy034TrIsi5dhIENttXLgAU ljZIE0M21zc5M7SUMqGQXoZSW3 mGR5aX4lpVewxasldUDfzRlw jjSagZegXQsuXYdrA836MHChoU ntQcLyacYjGVBagZB5HF53PM35 fYXna3W5bGS7B1HtMKVehtgs vfbepMH2SPOkICJquF00Yq4phH ueZa3yMZKnRCA9HUBdlCBpB8Jz mN9hBpEdUYTtKKQhJ6ZrcEXq UWpmR104VYosRaP4OYLsiyZtK8 KaORSwbPzcMfZ7s5R2Gp0NC6A0 QO11IX97dPSyv3A9hHD3G0Am CCRubwerobnapKS3CXAsRGFpdF 79Nl9uoNjcHd1jNMLzUPH6IDFb hSJvD3AtbQ2wZvNtZZBcGICs U8KjuPDfJHgwH293KFxaSwA0FO KilqAmL4YfZMLzpBbwWdF3w4S5 Ku5SOUf1YG17QF53oHAaj3N2 fVD4G3KaUJEsdljcntgrzIQ5QL ShGIIpjH31Wd3yeXvwBt1lAAGu CAR7IOLriDVqP5VauU9nMsKg LCKdWYDhA4WcxBIrMGptL325IH wgMcA1UUTwboUfG3QiPPQieGwx MwL8a1P3Ox8HGNLvHE17JOV8 sYW0TA27BJ66Z8XlHyeglRMoiR U+PHRhYmxlIHdpZHRoPScxMDAl EmAtdWjbVB4vKa1bJPVxBMMx cDovhACvFtVnx5efJCRbLRbkYG 5eeNmpR8TdbWA4RQBco6i9Si82 S38xX0BgtTR+RQVwtWV4lID7 cZ2jGnSmZoX8HVdfB970ZqAycB CxCzrtd6vvu8xprRz7ArD4CPIn rdDmiFoeZQM8o2JqQr36Z42f IHdpZHRoPSIxNSUiIHZhbGlnbj 9cnN2aVa6+JMJxxMB3wFD4qI3d WkLvPjI2CZjaE895EaAvqADa Jculu6lfl2hhmOn0IjSyOQJvzw NuiDltYQB3t7MbXv78Y8AwaEdz e1EkPdd0jm35uUBzh1G3xUU2 P9SbGZDqramxyLZjeMnfSK8bDB DogifyEOWktJ0sUHZbP0c6LqBi UjL7ZDtyP4VrfvS6ZNTwpULp APzqFZJ8P36od1A3GCHmWQWgCZ M5lVW9hC5jtBlllhncwPIysUbi sbTdeNizQAtbICoqI538TBHn gXqsBHQllB6eLXEutWWbeJnsJA 4wNTBpbjsnPlNURUlOLCBWSVJH GT3HGNJLEBN4Q4PxRgc1WUIs mBzhTE6mdJJaBJdpSd6clUiycM dmGF4sYNFqqjofKUKkrE6zWKVt fGVvhHmrWT0mTHGjgcjkm754 OuFxGLD6RUOroGRyH9UzoI1qRg OpHDYuRJUlZ7FakCQhHHsmV128 OTdgLyH8GNGkysRhK9UrHTMz kSyyJcF9x5W2Uj8cKU2tIU0aUN trAH86YH81nHTyp5R1hWR6K8Qs QHIiqrzrtrsukLI5HBToHBOo uU03tNVjNRniEz1xy9K6f209RY AnPPLszD79Lz1uzNhdZJSjmQLZ sT7lgaows9babcvwAzYmNGSe XKe3HBy3GBFepVoxNxTiOUU3Qn E9WVJ0fEEhaX1zdOknxxaseL9o Oyc+TiytCDUzglN8C7ZbFwc3 PHTviDsxCI4udSHqBOueWy2wlA pjzTrlPX6oTHUyruciZDTetJ9k MFWasXMjbNxaAV1wPFNnwznx q145MmQpSXA3MXOauZLqB6HebL 8eGjZhRZMgNYKgK5FksUOyKZvc J746SVffYvI1YWYuqzZmD5Km KFJpdMogMlX2a0M1Ox8MCW9LAN H5X1LzUgq2KLAjcBrbYH5ssBVb RYmfPx2kwParsAvxPF5hMGEg weimLTMloS6aGPUmgEKopPfoJJ 9aTSWikbvdd788SsKfLKT1QLTx kYQtB1LhvQ0nRwTiSMQvIKCa Q8CltPKvGTrqY289TVvaXrB2WM UaxsKsE6VzMJJepLksFqX7o3K2 Ir9BTPckyEJ+PQ04tv08F6Bw JxjqCiz7ANXpZCD3hQP7xX9xKP IoRIfgt4M3iPL6M3YjbnPcbc1i w4vkASRwMTijG69bxXKok2K8 EXJxfPN6XKNuxEhwOzBwxP06Kv c+SSHjcUxaa1ZzJiybr5xdo8hv pLb0KyWtVCCbxjYzcHbaBIE0 w2JdBb96J25zDExeOSKeOZPaHY FxRMJlkSkdxy0hdD8jUm2+PGNv dJY5iNN3vU0nVdJvQmA0HHgu I309LjJlyDXbPksha4vyu0qasH t3IhKtQQByixTikVlcJHI4q5Rt Oj23Q1BplYhpl1XsOlu2vs15 hTEev2T3dQL2B9KbYNTbvxwfzA WqqLodEL3bKENqxdtsQWEdwB4b HOYzX4x8HgLpRmO2QBciL1Ay rdD1YQEidRQhHXOoxGSZeQ6nni haz8fykkwhBqTePILmSAe7VLk7 XEZeiNskLnBrEBO8StU6ZSA6 lKFctP2vlVhoiitxiU2hKly+UG c4g6fpaOApIB2smXV1XB09QA08 lXByo1I1uCQ4X2NeEPBvqbsv bhxrnYV9ZEOrFKWcvR53Yo5vjN qeXx0yBEUbEWD6LSJffTLnQ9Xc tH1vKtRqBMRgKBJnO6AthBIv MMrnB170YUfpDsE5QCSulkTtL3 YbKTCofXqyThD4z6W9Zm3TJM67 YF08TE52fSNgl6S1lPH5Y0Eu JRLkyioeafwunWF2FNJvBJOdvZ 56Ac6lhKbmBb1wXKEvJRN4TMZv aVEuX8ZxeE1sNiFbHIGvDSFc K6VeyYClKKnmS345DMopVmZ2PJ IfynSbQ6DhNRNrtUdkTzT2s4W6 Uk7NYg05FS58GO58cYPtt7T7 yDO1V2XsUPLxyfibhcefoSU8KP LnSXSnfU12Hh4zdNttIm0xNBMe GWH6NJJohHWzY7YieU5jDlUr EDZsWCCnH0CyiYDiLAueC823KX vlTmS7HQEpkqOvC2LxFBQpoTje FyS3d4P4Ot3PGZjnwbi1A5So PjwvdHI+KD54YJVtWZ62nWRuiU Fxp8ddfIh8QcKnVLChYEF4wOaz UKrzd3JaHAEsE66vdINgv8H1 IGN (more content not included)... [facility] Coding Summary HTMLBase 64 GsmzvthkMYq1cJy+PGhlYWQ+PE 3SUTJmG08bcMFwaZ3WW2vWGT0A CUKUFYDQKY3NSF8zcBO7MUatW3 VybiAv CvcwiJGdXD05VXf6WEF1iAukEM getB7dnHVsQ0z3ShQmJA13lT15 VIveNWBnMmF3YbErpkjttWLt Z6wmEjNccTWzWpu+PHRhYmxlIH isMKDxYPkdVDVlCzKpaTeuBA0e Ie7bKEPuDULncPycdPCfUxCp t0yeXHFdQRydLP0buDanU7JfcG Z4NNSkd4i0Ie46uWR+PHRkIHN0 kAdsENfla150JnKea2ktVXZ2 pXCmNEkmNCJ6V24kp8D9HVArKD KfOIO0uTD4qJ5poOipynolT5Hf hBWzQfO5YRT2cKZnfX9ceZrb tmqdsS4oHkz+H60NPH6JJMSCFM 2TEtm6V0VyCjuijXR+EW96FDMf KA31vOCprPSsq5kqtHz0XdBk XAGaMMJ4dSigLVrvq0JjSWRyI3 8pyAQbh6W0KDOyiUhasITtHcTj fGW5vO0aCXezzatql6aeblfq Fxspu6vnmf43iH43W82sSWpdFZ NeXAL1HBQiUPGfhEyyes8fjM7h Ii8+WDsxu1wrk2ilzLj1LuSs ELPtdbJczRsoARE4d3XzSs82L8 HkoFbox0OgBik2eo27iCAig5D5 kPG7LBjrFHPvtZ0lGVecJpE6 BBEvTsSkpV49aVTmFVerYd0ljZ bbmObzET8cDUSpuaxcWTCpuN8t CXBgfPDcpUknAF1bFUMicuif v684OgAwZXF7LNUbhUScY6MujL 1vQzEiHFLqMVWtB6AogETnCFwa O303SJybXfA2JZKllqTiI5St QZMiuEeiCkL2l5L5Qt0Jv3Dfdp iaBGK9FRqzMXI1SnQnBxJrWnX8 V1FzTml8QTLjsGioAS2vM4Iw EBQygqmkwdqixLH3TQRwKWUhcV 67xUCiWSebWc6wi9H9t583JEEu QNJlaI76Zl8ykNpyGJHwoHPE lR0khghym8fnontnLjHvLISpCT e7GFi4AIIteOuqIrXdFET9PwZ9 DPH3iZPjnC0vvSebzkbofW2v Oyc+C32nkP5jCZA8KNB2bftkXM DkphWzWJ40LZ73K0GiEqjdtMRr bGU+YILfxaFmfTxuFQ4lQpFq j0byg6LtPPbmY4ZpECGcSRbbDk m2FLAeKXF3tCB1kU5pDZSxVNgz o1F9uJR4G9MtmlArzv4iu0oo LRRzZEcbO21bdALcf5Z4PMKihO L9ARMacZbkBpDpfZ78Erp+PGNv oIvpa4RxCsglv6eqg6oqmNh9 NnNaQMHesaXmoWltUCP7e2DeCa 43U45xFUtxLUIgXIWdFJRrVJWc yEjccn0ktR8uXm8+PGNvbCB3 pOX6bD6gKAKfTvB8VQghJ180Af NsyIZjXdbel9hbe9xjxBp2NiRc KYAtejRikBhyEAE3q4FsZe62 K97eMQzxAGCzIOPkZXRtVMOnbV besj1pjF7xBi4+HD7th4dzsn29 sB35gOB+VPOcTVO8xVpvYPql XTZsxD3qJPhhTfZ8CHFpGpIdlI 65tGXdIVumKo4stCuoqPtrFO6d ABTllaviq095KhMje3xsBIBw tAUgSBynVFR6M92ps8M8YENeMX TvWFB8kJS8rC5ubDwyunxpuZOw iElauiSzlXujTMhgCIycT005 IHRvcDsnPlBhdGllbnQgTmFtZT w5J8XvZot1FQPclJgyOR7mkFLy JGcxDk0puFqfjZwzQD8sUYRz bajxb609RrNck9pbDHOsmDWeRC ulDOV6V88hl4U8FOEkNACmIRE9 qNL5dY0jiLvdlyzhjKLujXtq xfAumCycJTfrXNjkU316GXQbqQ maZzDhptAiADUbbQY8HF54XB38 dUJlb2S7qMN7J8IlKRJkddmx sgixxUM7TMAkBMWwrQ55Bj2hkB swNs0oRNQxSHM1ANMtmSFpN4Lu xT3zLzEkCSNgSZAoK9JtwCLw TSisS269GWxcFiI9BLXvqbDnZ2 OdIRFcaHcwVyY1p4I9Tg8QI1H2 BK39IL57hFTqy8X1yYT1G9Ki GKUhrwiouiebaGB3KDXgFBZndH 81Yt4ruUirHu0wQHRbQME8ZSDd aSAbK8JukV4fZtKiTXJfCWNv Y8AmjTMbIYmeS268CXkkHnI1FE AedxScP8HuPLCbsUqjAmT9m4I3 Ap1CQVp7OS38KR33uILmh6M4 sAP6D7SsAGEjaafzwalzbUG4QN IcWNJpwT20Tj5zhJolDm1sXOVd ZKA5BGVkoOSoS3DklQ7bPtIi VMNbGADmJ6CofZYpFEyhE283UJ vqPwG2AJEzpyZoV1YjRPLbsFnd PtO4p8V3Th2QXRMoNW45IZK4 nYX2TT11BR34L1JyMjhopMEjpZ U+PHRhYmxlIHdpZHRoPScxMDAl SiYnfGjzCQ8jJt0nIAKoXAPn hZehwHVqAsVpp5doTCHpJNwcEO 7mzCjpQ7AssYK4MZVmh7h7Tc93 D20gA9LikAF+LIMgrPZ3bVB5 rU7tLvBnYpV0FIxpW078CqGliA EbJyzky2err1yqeAq9FjG2JLHi gjPxoOdtJQN5i6BaYj50B48u IHdpZHRoPSIxNSUiIHZhbGlnbj 0anG3rMq9+ZDPrcUG0dCB9bX2z RmJyTjC0HGkrN185InJwjEBr Zvcgm2pel4oqiRg0LkUgBSGnmn AinSwoVNU3d8GbPg84D9HawIwr g2FuPnt8sp21sRTub7M3pPI5 C2KjOZOtgjqqkVLccSlxGA7qCS UsgbmwOBZhaL8mXVSuR1t0PyAg QdO0XVjnE6AiguL1PVWqjREu VLbaTWR0B91pi6D4KFQnDTMyTV T8mWJ3mH4qqWvufzfxjTMkqUct lbKdzZgsRHnkZWmcW249PHCs dWwlTGHreA1zODLldTGxfMzvWC 4wNTBpbjsnPlNURUlOLCBWSVJH UQ7DZPLXXEQ1Y0YbQcj5PDMc yDqmPL8yoCCeRMfeGq7psRtriW gnUN1yJGRsqdtiWZZrnF2hLJBe mBZxiXwiKR6mXMTdrbuix148 TbUuMYZ1XZJokVFuQ0JmsR0yRg YaOXKbIRZgI3FfcZHoOHkxT216 GAnnUtW8WEPuovQmC6NpUVCx iPqlQvA3p8E3Tw8hIN2lHE2hIQ tvQP85AU35vJEom9P7dZP9Y9Zc HJIrqhskhkbuqJB8QSHfFYPr vQ94rZUnXSwpMt5ct5H5m024OE MqGMZaaJ46Kt1lgPtyPJKdqFKK gC4bjrxaf9tepyzoStFcHODb YIb3YLn6XKHkeOxyKpEsGQC3Tp J2BVN1wAFncA8lhXbulctwyI3e Oyc+RtffFNCxixW0H4ZfDgi7 LPGjgXixGX5ngTNvVYtmUf1kjX pviBexPC0oKXCspbbyDUHmiZ7t ALSwuMGsnHozDI1hEJMundhn f933EhOtDEU2GJNlqFTqI5NnxO 3pIyPeKCCzIJZaJ4JbbYJkYOwx Z893IHtxSvR9ZGBhphLmS1Px BULalXriSgA4e1N2Qg6RGE5AFP W4B1JrLhi6GXNgwLkeNS2fnECd UTthRo3ihXtugJfqPL1yGRMf eetcPNKwvQ7vCXExdWHcbDewYX 0dAVLznjsjf229RnViLPK8AQDu uKVyG5MtaX8hYiYkDJYzMGZs S1RwuDBmIBowQ203QLpiMgL4PK PktqReD7KiYFRlvTzuNnZ6a2Q2 Ui1XnNQkF2ZcO6n4J2IiFkil dHI+NR75PTOjIY38rNUjeKXxc2 sjpDb0SeMwTYKbHFK4aVpmDNtm c3XkYJTgQ58ewZTng7J5GPLq oAimqKXvZnHkcTW8qL8wJXcaet rdw6mnntrgInoom7pibq82iE44 F76dMSufPTQsHZDxGPWfIUFc iVgosp4hmZ8oJu7+GNDdwAO4cE T4pZ6gKaLiZtL9JSdoX618UgBa iHAoJwtnf2cqd9mulSl3KkDj INOrgdUkkCggTGP6n0CyJw39E6 9sIHdpZHRoPSIyMCUiIHZhbGln on6geG2uZi5+WG8hx2xewy38 yG43hQH+FNCoBXY5xVgnWXxtPI WytK9uMKroMkR4ADNyNkEbiA18 yENxTOwoSm9lcJwxeJyvLM0k ZXSetmkpr711KaIew3efJRNvdZ PbGNrxWHI9V98gs5F2JPEkROFn QHK1pMK7lL6uvUmyfkqzeDWq qGcqclBusAdyPRxiUJzkF370TB JgiDohUyZlfPBxJ6bttdRNPS6m OjwvdGQ+BPBaXFH7gTwtXJet KXSzgT4fATFxI1y5VhRsQrZ0GW jsN3PhqkO3QWYfwKAsZMPoeCVR fB8vbeqpo5hlovhuZcQwGQIz FVi6AGk9YSTmaNbgPyDgPCS9Ko N5BEL8pUCysO9zgTfxjrfzpV7q Oyc+RklOOjwvdGQ+PHRkIHN0 tLvcTZwpFTCgzS6pKJLpZ1r4Pg NyEcY1VChsJ7ClngU5APGtaPRs PGBxwLLXdJ6qioptk3fblmuk VcWmEGZqZTo7CYc6YJVbgCfkFx XxRTW9IhK6JUP1xOVweO5ecLfy evghiN5nVeb+TVJOOjwvdGQ+ GMXfUVE4wJxiLCdiDQDbxZ6ySI XlQ9t1MoRnZcC8MAeoS6KkzvX1 KQQjtDJnYOCovTNUfE0psrjs e0penvwvFuRsQGJpLIw6EQz5XS QczAoeYhXaPIF7TbJ2XJX5fIBr jJ7tlEhhelwyiQ0nPdj+UGF5 ADQ0XX18KI37V1KnUbyozXEyuK U+PHRhYmxlIHdpZHRoPScxMDAl NlCfnJoyJX6sWt1oCWNhTZCh bGx (more content not included)... Normal [facility] CHLAMYDIA/GONOCOCCUS RAINER ( AB/URINE/PAPon 02-09-2022 Chlamydia trachomatis, RAINER Negative Normal Negative [facility] Comment on above: Performed By: #### R PRQ #### [facility] [address] [address] [address] Juan Antonio Ibarra Neisseria gonorrhoeae, RAINER Negative Normal Negative [facility] Comment on above: Performed By: #### R PRQ #### [facility] [address] [address] [address] Juan Antonio Ibarra AFP MATERNAL FOR SPINA BIFID Aon 02-08-2022 AFP MoM 1.41 Normal [facility] Comment on above: Performed By: #### A FPMAT #### [facility] [address] [address] [address] Juan Antonio Ibarra AFP Value 66.8 ng/mL Normal [facility] Comment on above: Performed By: #### A FPMAT #### [facility] [address] [address] [address] Juan Antonio Ibarra AFP, Serum for Spina Bifida Report Normal [facility] Comment on above: Performed By: #### A FPMAT #### [facility] [address] [address] [address] Juan Antonio Ibarra Comment Comment Normal [facility] Comment on above: Result Comment: Melchor Chaudhary, Ph.D., [facility] Director . References: Available Upon Request. . Multiples Of Median Cutoffs For AFP Elevations Briscoe 2.5 Black 2.8 IDD 2.0 Twins 4.5 Abbreviation Definitions IDD - Insulin Dep Diabetes OSBR - Open Spina Bifida Risk . For further inquiries contact [employer] [facility] at [phone]. . This test was developed and its performance characteristics determined by [employer]. It has not been cleared or approved by the Food and Drug Administration. Performed By: #### A FPMAT #### [facility] [address] [address] [address] Juan Antonio Ren Age Collection Date 18.3 weeks Normal [facility] Comment on above: Performed By: #### A FPMAT #### [facility] [address] [address] [address] Juan Antonio Ibarra Gestat, Age Based on LMP [facility] Comment on above: Result Comment: Reca lculations are not recommended when gestational dating by LMP and ultrasound are within 10 days. Performed By: #### A FPMAT #### [facility] [address] [place] [address] Dr. Juan Antonio Ibarra Insulin Dep Diabetes No Normal [facility] Comment on above: Performed By: #### A FPMAT #### [facility] [address] [place] [address] Dr. Juan Antonio Ibarra Interpretation Comment Normal [facility] Comment on above: Result Comment: Inte rpretation: [...] Customer Services to discuss available options. The [employer] recommends amniocentesis be offered to women age 35 and older. Performed By: #### A FPMAT #### [facility] [address] [place] [address] Dr. Juan Antonio Ibarra [age] Normal [facility] Comment on above: Performed By: #### A FPMAT #### [facility] [address] [place] [address] Dr. Juan Antonio Ibarra Multiple Gestation No Normal [facility] Comment on above: Performed By: #### A FPMAT #### [facility] [address] [address] [address] Juan Antonio Ibarra OSBR Risk 1 IN 3501 Normal [facility] Comment on above: Performed By: #### A FPMAT #### [facility] [address] [address] [address] Juan Antonio Ibarra PDF . Normal [facility] Comment on above: Performed By: #### A FPMAT #### [facility] [address] [address] [address] Juan Antonio Ibarra Race Normal [facility] Comment on above: Performed By: #### A FPMAT #### [facility] [address] [place] [address] Dr. Juan Antonio Ibarra Test Results: Negative Normal [facility] Comment on above: Performed By: #### A FPMAT #### [facility] [address] [place] [address] Dr. Juan Antonio Ibarra VAGINITIS/VAGINOSIS DNA PROB Abdirashid 02-08-2022 Bettye species Negative Normal Negative [facility] Comment on above: Performed By: #### A 1C #### [facility] [address] [place] [address] Dr. Juan Antonio Ibarra Gardnerella vaginalis Negative Normal Negative [facility] Comment on above: Performed By: #### A 1C #### [facility] [address] [place] [address] Dr. Juan Antonio Ibarra Trichomonas vaginalis Negative Normal Negative [facility] Comment on above: Performed By: #### A 1C #### [facility] [address] [place] [address] Dr. Juan Antonio Ibarra ABO and Rh group post transf usion reaction Nom (Bld)Ordered By: Eleazar Hess on 02-06-2022 Microscopic observation Gram stain Nom (Unsp spec) [facility] ED Clinical Summaryon 2021 ED Clinical Summary [facility] Emergency Department [address] [place] [address] ED Clinical Summary PERSON INFORMATION Name: ZULEIKA WYATT Age: 31 Years Sex: FEMALE : 1990 MRN: Acct#: Visit Reason: Rash; Medical problem - minor; POSS BODY INFECTION Arrival: 01/29/2022 20:27:46 Discharge: 01/29/2022 21:17:00 LOS: 000 00:50 Check In: 01/29/2022 20:27:46 Checkout:01/29/2022 21:17:00 Address: [address] [place] [address] [address] [facility] [address] PCP: Andie Stoddard PROVIDER INFORMATION Provider Role [...] follow-up with their family doctor or their [facility] doctor. To this they agreed.. Health Status [...] Current Fr (more content not included)... Normal [facility] ED Note - Physicianon 2021 [...] follow-up with their family doctor or their [facility]IAL [facility]AUGER doctor. To this they agreed.. Health Status [...] Once. Impression and Plan Diagnosis Sebaceous cyst (VZD85-ED L72.3, Discharge, Medical) Plan Condition: Unchanged. Disposition: Discharged: time 01/29/2022 20:59:00. Prescriptions: Launch prescripti (more content not included)... Normal [facility] ED Patient Summaryon 022 ED Patient Summary [facility] - Emergency Department [address] [place] [address] PATIENT DISCHARGE INSTRUCTIONS Patient Information Name: ZULEIKA WYATT Age: 31 Years Date of : 1990 Reason For Visit: Rash; Medical problem - minor; POSS BODY INFECTION Arrival Time: 01/29/2022 20:27:46 Primary Care Physician: Andie Stoddard Attending Physician: Johnson Wright DO Comment: Visit Diagnosis: Diagnoses This Visit Medical problem - minor ([id number]) Rash ([id number]) Sebaceous cyst (L72.3) [facility] [...] alcohol and/or drug addiction problems; contact the [facility] 07/01 Crisis Hotline -Text 4HQPL to 499921. If you received any narcotics, sedation, or [...] Address: When: Andie Wyatt [facility] [place] [address] Business (1) Within 3 to [...] to return anytime. Call Dr Wright, ext [phone], if any question patric WRIGHT< ER PHYSICIAN< [facility] Medication Information: The exam and treatment you received today in the [facility] Emergency Department were for an urgent problem and are not intended as complete care. It is important for you to follow up with a doctor, nurse practitioner, or physician?s office assistant for ongoing care. If your symptoms [...] so we can reach you if necessary. [facility] Emergency Department has provided you with a complete list of medications post discharge. Please inform your primary operator/provider of your visit and for further [...] Epidermoid Cyst (more content not included)... Normal [facility] TYPE AND SCREENon 12-30-2021 TYPE AND SCREEN Antibody Screen NEGA TIVE Blood Bank Notes performed by CV on 12/26/2021 ABO Rh Typing A Rh Positive Blood Bank Notes performed by CV on 12/26/2021 Normal [facility] Comment on above: Performed By: #### R UBIGG #### [facility] [address] [place] [address] Dr. Juan Antonio Ibarra HEP B SURFACE ANTIGEN SCREEN on 12-28-2021 HBsAg Screen Negative Normal Negative [facility] Comment on above: Performed By: #### H BSANS #### [facility] [address] [address] [address] Juan Antonio Ibarra HEPATITIS C VIRUS AB W/ REFL EX QUANTon 12-28-2021 HCV AB 0.2 s/co ratio Normal 0.0-0.9 [facility] Comment on above: Performed By: #### A 1C #### [facility] [address] [place] [address] Dr. Juan Antonio Ibarra Interpretation: Comment Normal [facility] Comment on above: Result Comment: Nega tive Not infected with HCV, unless recent infection is suspected or other evidence exists to indicate HCV infection. Performed By: #### A 1C #### [facility] [address] [place] [address] Dr. Juan Antonio Ibarra HIV 1 AND 2 WITH REFLEXon HIV Screen 4th Generation wRfx Non-Reactive Normal Non Reactive [facility] Comment on above: Result Comment: HIV Negative HIV-1/HIV-2 antibodies and HIV-1 p24 antigen were NOT detected. There is no laboratory evidence of HIV infection. Performed By: #### R UBIGG #### [facility] [address] [place] [address] Dr. Juan Antonio Ibarra RPR QUANTon 12-28-2021 Rapid Plasma Reagin, Quant Non-Reactive Normal NonRea<1:1 [facility] Comment on above: Result Comment: Plea se Note: This test does not meet current guidelines for screening and diagnosis of syphilis. This test is intended for following treatment response in patients being treated for syphilis infection. To screen for syphilis infection, a reflex cascade that includes both RPR and a treponema-specific assay should be utilized, such as Treponema pallidum (Syphilis) Screening [place] (918657) or Rapid Plasma Reagin (RPR) Test With Reflex to Quantitative RPR and Confirmatory Treponema pallidum Antibodies (207895). Performed By: #### R PRQ #### [facility] [address] [place] [address] Dr. Juan Antonio Ibarra RUBELLA AB IGGon 12-28-2021 Rubella Antibodies, IgG 3.48 index Normal Immune >0.99 [facility] Comment on above: Result Comment: Non- immune <0.90 Equivocal 0.90 - 0.99 Immune >0.99 Performed By: #### R UBIGG #### [facility] [address] [place] [address] Dr. Juan Antonio Ibarra CBC AUTO DIFFon 12-26-2021 BASO # 0.0 103/ul Normal 0.0-0.1 [facility] Comment on above: Performed By: #### A 1C #### [facility] [address] [place] [address] Dr. Juan Antonio Ibarra Basophils/100 WBC (Bld) 0.3 % Normal 0.2-2.0 [facility] Comment on above: Performed By: #### A 1C #### [facility] [address] [place] [address] Dr. Juan Antonio Ibarra EO # 0.0 103/ul Normal 0.0-0.7 [facility] Comment on above: Performed By: #### A 1C #### [facility] [address] [place] [address] Dr. Juan Antonio Ibarra Eosinophils/100 WBC (Bld) 0.4 % Critically low 0.9-7.0 [facility] Comment on above: Performed By: #### A 1C #### [facility] [address] [place] [address] Dr. Juan Antonio Ibarra Erythrocyte distribution width (RBC) [Ratio] 13.5 % Normal 11.0-15.0 [facility] Comment on above: Performed By: #### A 1C #### [facility] [address] [place] [address] Dr. Juan Antonio Ibarra Hematocrit (Bld) [Volume fraction] 38.9 % Normal 36.0-48.0 [facility] Comment on above: Performed By: #### A 1C #### [facility] [address] [place] [address] Dr. Juan Antonio Ibarra Hemoglobin (Bld) [Mass/Vol] 12.9 g/dL Normal 12.0-16.0 [facility] Comment on above: Performed By: #### A 1C #### [facility] [address] [place] [address] Dr. Juan Antonio Ibarra IG # 0.03 10e3/ul Normal 0.00-0.03 [facility] Comment on above: Performed By: #### A 1C #### [facility] [address] [place] [address] Dr. Juan Antonio Ibarra IG % 0.3 % Normal 0.0-0.5 [facility] Comment on above: Performed By: #### A 1C #### [facility] [address] [place] [address] Dr. Juan Antonio Ibarra LYMPH # 1.4 103/ul Normal 1.2-3.8 [facility] Comment on above: Performed By: #### A 1C #### [facility] [address] [place] [address] Dr. Juan Antonio Ibarra Lymphocytes/100 WBC (Bld) 14.5 % Critically low 20.5-60.0 [facility] Comment on above: Performed By: #### A 1C #### [facility] [address] [place] [address] Dr. Juan Antonio Ibarra MANUAL DIFF REQ NO Normal [facility] Comment on above: Performed By: #### A 1C #### [facility] [address] [place] [address] Dr. Juan Antonio Ibarra MCH (RBC) [Entitic mass] 29.6 pg Normal 26.7-34.0 [facility] Comment on above: Performed By: #### A 1C #### [facility] [address] [place] [address] Dr. Juan Antonio Ibarra MCHC (RBC) [Mass/Vol] 33.2 g/dL Normal 29.9-35.2 [facility] Comment on above: Performed By: #### A 1C #### [facility] [address] [place] [address] Dr. Juan Antonio Ibarra MCV (RBC) [Entitic vol] 89.2 fL Normal 81.0-99.0 [facility] Comment on above: Performed By: #### A 1C #### [facility] [address] [place] [address] Dr. Juan Antonio Ibarra MONO # 0.5 103/ul Normal 0.3-0.8 [facility] Comment on above: Performed By: #### A 1C #### [facility] [address] [place] [address] Dr. Juan Antonio Ibarra Monocytes/100 WBC (Bld) 4.6 % Normal 1.7-12.0 [facility] Comment on above: Performed By: #### A 1C #### [facility] [address] [place] [address] Dr. Juan Antonio Ibarra NEUT # 7.7 103/ul Critically high 1.4-6.5 [facility] Comment on above: Performed By: #### A 1C #### [facility] [address] [place] [address] Dr. Juan Antonio Ibarra Neutrophils/100 WBC (Bld) 79.9 % Critically high 43.0-75.0 [facility] Comment on above: Performed By: #### A 1C #### [facility] [address] [place] [address] Dr. Juan Antonio Ibarra Platelet mean volume (Bld) [Entitic vol] 10.0 fL Normal 9.5-13.5 [facility] Comment on above: Performed By: #### A 1C #### [facility] [address] [place] [address] Dr. Juan Antonio Ibarra PLT 194 103/ul Normal 150-450 [facility] Comment on above: Performed By: #### A 1C #### [facility] [address] [place] [address] Dr. Juan Antonio Ibarra RBC 4.36 106/ul Normal 4.20-5.40 [facility] Comment on above: Performed By: #### A 1C #### [facility] [address] [place] [address] Dr. Juan Antonio Ibarra WBC 9.7 103/ul Normal 4.0-11.0 [facility] Comment on above: Performed By: #### A 1C #### [facility] [address] [place] [address] Dr. Juan Antonio Ibarra CULTURE URINEon 12-26-2021 CULTURE URINE Culture Observations : LIGHT GROWTH OF MIXED GENITAL ALONSO. NO POTENTIAL PATHOGENS SEEN. Normal [facility] Comment on above: Performed By: #### R UBIGG #### [facility] [address] [address] [address] Juan Antonio Ibarra GLYCOHEMOGLOBIN A1Con 2021 ADA RECOMMENDATION SEE BELOW Normal [facility] Comment on above: Result Comment: ADA RECOMMENDED LIMIT 4.0 - 6.0 ADA THERAPEUTIC TARGET < 7.0 ACTION SUGGESTED > 7.0 Performed By: #### A 1C #### [facility] [address] [address] [address] Juan Antonio Ibarra Glucose [Mass/Vol] 114 mg/dL Normal [facility] Comment on above: Performed By: #### A 1C #### [facility] [address] [address] [address] Juan Antonio Ibarra HbA1c (Bld) [Mass fraction] 5.6 % Normal 4.5-6.2 [facility] Comment on above: Performed By: #### A 1C #### [facility] [address] [address] [address] Juan Antonio Ibarra US PREG TVon [...] by: FELECIA GOLDMAN Date: 2021-12-07 16:59 Normal [facility] Coding Summaryon 11-21-2021 Coding Summary HTMLBase 64 QgsksciwAOn2sRi+PGhlYWQ+PE 1GEMBfX23smFDxwT3WY2kHOY6Z GWZUXTCCYT3VUH6zjYN2CNitQ1 VybiAv GkacuHAmXN22BIv8HIF2iSjzCA iyoU8rtPOxB2t6DmKsLE07rJ81 ZRsnYPUrVoQ7RbLpfzznjQGz A9qoSmZlqHMrDpy+PHRhYmxlIH ooHZRkTNlsVLRdXrJnnXnbSS6m Cc2pGBJrEFDmxDpdzHWgRsVd r8cfBSJiRMimSV7edErjX2YvjR G9FTOir4r2Dy13ySV+PHRkIHN0 lPwkZQnuk215EoZyy1ziJBY0 jUPwSVhkXFZ9S29an6Z9DRHaUT OjVFJ6xWV8yS5sfEqkztahX4Cu iOOeOrI3YYA9tBPgwT4biPzc iuntjO7hXvv+B21NTO9LAQMBSZ 1ZNyi9C4SlDnctdSJ+FG57PRIh OJ54gZGobAGil9xxlDz5LhDm PTCxWQJ5bYqhXOecd3IvRYQpD6 0gaKRhs2T5EGQpjDnegOCsDwIe tTB5cT1jWHnswwhsz6xmbndr Jxjue6cfwk64rG48E21jZAqjIA MvXYE3KESuFDDzjIbdvu8brH4g Ii8+DJije7ral7keeGo6BzJp VGGhuvBvkZmmGIC0r3FiMf74B2 SqfZere9WuOdb0dr69aSFwo2B3 iNI0KDzkEMGqcU8mBEruSqD6 AGCyJtDnhE88xFJaEUjaYj6tjV jynSfaEO1eIBVmiognISErhK6b COYnuBZbnAjiVW6dMZHvajiq o620TaKdXXX9FNLhoVPrN7ZxzW 2tQsQsBEVpYAHaM1TavLIgXJdh V659KVggJeQ8RKWrmiHmJ9Xf BHLmmNoaWxQ8o3Z2Th9Jr2Gggb klMMI0AYyeZDF7DeJ8PnIsTfE7 H6VgKbx0ZSEvaSvpNE7nN4Ny EFGzdnuuhwfkpTW9VNIrLQUseD 27eFVbSNwwBt0cj8O8p895SDLm JDPnzL17Vk8yzCikWFGppVOE pG9pdwqnd2iwxzxfDqUpBLRoLZ w4TTc0OAZhsGtsSpVgLUQ3KvK0 SXN5pEBybZ8hnRemxvjazF2v Oyc+J68woH0qFYK5ENQ5bsbuNZ QyjoKbXH33GA27A0KkRygeaUWj bGU+JFTrveMrmBcqRQ1tEyBa y6rzl1VzNTehX5AmICBoIJveEc k3DQHlIXY5wGL0mO9eBEDvACth u7J8yUY2I7MdinTcoj2pe5jk FTZiDHraD66gyEWlq4N2IVPkzK M9CZCcaCakJvJdnT06Vnb+PGNv gAkbv9LqKkkxr2pfs9udrMt6 WkPzCQHempRezCgmLJD1o2AxEj 83Z66mDTjpEOPrWLOdEZEoXGPd jYfyua9zcY3nYd9+PGNvbCB3 gSM2wO4nVECwZeS0ZCsqL280Zy KocAOxYjsez1pir8jdcUn6NlVh QNXjbcKnzHdzNCO7y4XeVz14 Q25gILqhDJBaXMMuAYXbAAOkcH jjji3tmF8oHq7+OZ8cf4byli42 zA25iZI+KNHbVUN9sZrgQSyu FSQuaJ7eDLpmSfW5CRQdQgAkwL 38aECsTNncGd9kqRjdiFftKW8h TDGrdyzhm735LaKyn0dgZRUt fLVxVPhsPHF9D89sh6J4CLWoZL YrPMG1lBO1xB8whGicufzfiKJu cNpdeuXpgFqmNEapPAecY917 IHRvcDsnPlBhdGllbnQgTmFtZT x9V6MuCha9BLMrzAfySZ5duZTj AWfvZw5ihYirvJwbNV1cPDFv gkwbb385YfWra0wzSDOxdVOkMY mtNPN5N91ke5L4SNKfHDDiOJA6 lBY9vE4awZjtyrcdlKAkoNfn quNecIluEExuQIknH903KHKugW haGvLmegCkWYIljIJ5BV84XD48 pMRpa3M1oBO0W7ZmEHZpyicf mjjunOC4CAJiPRSsfR11Mu4stQ idBh7oYCReRCG8ASPgrCDkK7Uk hR2oDuPqXZLiOQSwH3PiiRXo TJozQ937YNbrKeS9RTCexfThP9 PgCYRvaOsjGoF9t1G7Fj2ZY5G5 KW44WV34jJDqs6J3wID7C3Ud IHMnuapmgkxphPW6CTLtOGPfxE 06Jg4fiJewEh0oLLAtUTE1SWQi qFWxA3BunW6lPwRuOCIwMTAn C4HrxLUwKLujK512KPkqKgR8IC RvffQhG4NjXFIpsGjmInX6u7K2 Ke4BNMa9YQ80PX50iHRac7S7 uIH1B1TfDJEyqucznjfbgML3AY UaXTXwyK06Zl5wbLqwUf4hLGDp CXH4FUJqyGDhR5SfzU2xLbNc MCUqTOVfK3LynMNqTSzgK742LO efFbJ5PEAbrrGuH5MaIDVhiTyr EiS2x6H4Yx3HELPiSR15PJP8 bJW6EI69YF20B4GpJffieCRtgL U+PHRhYmxlIHdpZHRoPScxMDAl NsClvEmnJU5pZc0ySGFmRSFk jMgreEDpImPls5yrTRAhRHldST 1muAoeE0KvrZH1QLNxu6e7Mn88 I13dO5SlzVE+GGYrmPU0vHX0 kF9tKzJwIuB3LAhfZ270QmYiqN OiDyxmr3kvu7sixMh1NtC1NJMi avGthQxpBCP9m5ZgHm48N14n IHdpZHRoPSIxNSUiIHZhbGlnbj 4voA4oPo2+PJZusWY9rJS8qE1r AsTpUtB6GYcpI885EuHsaZBt Wsllu9axt1cmgGc2AwRoBPWflq MurLlbRQE5b4YiWg82H7VrkEuz v0VdBml1ui53pFMsk6I0bHO1 M4AoLRDoqosfoXEtbAxhVO9qUD JdrzgzYAPwoO3iWJCxB9d2VcMj FcF7IAiyW4PsieW3AWSvgKDg VEnuSIS2X24ea2P4THOuPJAjAA H1rTI5eV1ycJiofkdjrHBkhGld iqGhyHgpNLujVAolD496NLAk aDszGQTqgU7aYJXvwLVoyAwsLH 4wNTBpbjsnPlNURUlOLCBWSVJH KO8OJIFFZIN5Q5WhGzh7FLLz uLidUB1uxKWhGJlqKt1xiDkbzC vuUL6wCRTjglnzQNMgrL6rWKWl xRAoiKhdZO4fTMWxrhvcs102 WtEkOFT2FDJpfTQmJ5YydN9hDa RjAQLzSATeH3JawXWlIXikF050 DHkyKhW1FYWskwIxQ4WfONWg uOefPwM5y0H4Pf5gFU0yCR5zZI qeMK26ZP13dMZzj0S1eXI4Q2Qw YBNvyvxzooswaWK6JMPmJIIs kD42sIXeXThmXh9vh0J3o721JD OsDGByuX99Pg1itTpdDTMuyEPD iE5kwchja7uiruqrQsWwNLLu SFw7PEq4VKXrxCwvMkKwONN1Ge M5DRK5gORipO2voJkwvsktmL5t Oyc+DmyoSUDvqhW0X5ZxYli7 PMNzlDsoJT9syPJxGXucLr9uiG zpgBwrGP5kOYJljkfaXUMdrE6r KZGpzTVloVggAI7pXQIonyha q385IxJnLOD8WQBvcGIwE9PlbY 1mKjGpXTHmOHNbB9QydNOhYGlm K397CKkdSvW3KGMpbwAmJ5Mz TTFzbHimRwZ3n1T6Ah1MLM4JUF W8S3TnVde6OUOfcKpsQP0bvPYg FTklMc5hlGnemQkcUB6uEUCc txklCWNxgS2yPPDsfTVjhJwmLT 7eNRGornojx438ReXuPUS7VMBo cXEcC3YeqL6eWiCvOZIgJYQz V2JmiOQzTVekU053DIexMzZ8KR GlbcNrB5RxJLAsxWcrFrZ6o5I8 Ue5AYZerlKJ+EO52ra39P2Is MqnmNab6QQStUNV4kOH6xZ0vFG OtIJioa5B9tST6N1YbrlXaye8u b9dkTJVgHQqgT16qlTVxh8T0 FYPsbLO9SDIpjOwhHoSwmX65Sf c+LVRlzYzjf4EcPcmnt4qcj7jn rLk4GbYxDAAdplYtkIqdLBE3 m9PbRq95T15uZJyzYLZmWFLsNY UsELDqgDtaue0ryF5qNb8+PGNv aPX2bZF9wS1qWvSmLbK5KVab I749ZsTfyDWtKexer5nxs2ykyE n8JiQbCJDpnfRzwWrsKYD7x4Ue Jr54U7DsvIzku4VnFmk4fm98 lKFvy2L5tBC3C7KeLXMjwxlpgL HpmSdcIU4oERPvibvwNUHwjK0y ZGNuI0q7TsHaDjW2VJztM7Fr swQ6QMMbzJWqDHBiqZEYkN4ypx raq5wxlttfAzFvAWMbMIf0WSw8 IKIseHryHaDxBRT5KgW1KVB3 tZXzkM1eyIsgieduyY2vIee+UG r9e8ixhKRmHY3tbTI8TB29GZ53 kWIwr5J0aLC7A7UoPOOikwqk ulrqvWE8TTXmZTTscZ31Pc2kyI rdIt8hDUUhGSG8HFFgqDAsV3Bn jM7hZgJkJVSbCXItL1RoiZGr ZXzdP096UVhoYkG8JGAdcqUcY8 JwFIUhyYieDsO1p4T3Rd5CVU50 CH23FU07pDOlm3J2yQS6J8Mc TSItnacvtwxcwNI8RPAuHLIvuY 50Ss3grYapZg2oPVSfIQO3KAWk lYDtI7HykA8cRvFrJGQuTUYv V7DqcNDkPYplG095GYuzNoA1YM RfbmQtB9ZlSXGezXtdVuQ7a2W6 Ij6YFh09UB20NH03fDVvs9X6 iOP8K1DbFTClvcylbmctaUF8OZ QcULNxhG59Gy8kwKgzLh6zUJYf JWU5NWKmzUOiK9UqfO4aVpRn XYVeRJLpC4ZifXLgJMteW069ON nnAgF3AWKeryGbZ2ExXPWzaUry PpZ6l5E7Aj0PRLfkmcv8T8Eq PjwvdHI+FT96TQVpTJ40dAKbjI Cyr2mbkBx4HwUdUZHjNHB0vCcr OWsdj3KyTVBpK22axEOvq7P3 IGN (more content not included)... [facility] Coding Summary HTMLBase 64 PglnbhbqJKo6kWy+PGhlYWQ+PE 1LUWFxV81aeOPyeS2IF4iPTE4T JQPTIBFRFG1YNA8ehYN3HZtiR3 VybiAv WrmhqEUcYT95TBl5SVB9sUdoHI ubyR5mzFIsD6c9CrJmPA79jP21 KMliCRIgBvP4DuKzjgdrrJUo K4xdPoGpsNLzHxd+PHRhYmxlIH biRYKhTIcmNGWvJpOhhQwhLJ7v Us0qBWOqXQAqsYiubUMgEeIq u0otHLCcXFojEY0cuUkrU8HawY C1RWZpu4k9Xo75hWK+PHRkIHN0 mKcmZMpuj903ZmMac5fcDWY2 mKPpUNarVTB9F12el9T1KWFbEK HtJFP7sYO9aA1zqMzlrwchZ0Hl eUTxYdJ0GMY7pCHrnG1qaYrp xlpxgJ3tEgb+H84XBQ8ILGFWHC 5MWpb2A3YkCygllTP+VN74WXYo OX36aSClqNGet0hteYv4TmXz FJRhLEE6zIfqKSiag6WlPLEsT6 2bcLHct6B5TDDxiTdtrLMuHrAx kHI4rZ4bPHauysbcq3sxfzpv Geuhn7ogux36uS81V56qCOamRW IsRAB8TXRfIRWsvJrzhc6wnG8l Ii8+IGnxj6wnq5unbEa4YgTv PKXzrhEgvVasBNA9x4UiWd54J0 PmpTlsa2QwFuw2vz95rCOwt1K3 vMI9SYccTDJhuS9dNIbnOoV0 CLXfJcIrvY11eFFxHAvgEn7qpD eemVciCT6lPZEaznbtUYClzZ1l YZLibSPhgUwjLH2uMWRsecyy j886OaLzEYQ8VNPrkLNiT2UljD 3gNgJrGMGbKXPcS2QwqDIdEIau S226OEqhGmJ5RBCzysZrK9Ao EEPgoJpkSxM0d9E0Sc2Nf1Humz nwJTK6RTwgFVU6MgS4MuPqCyO0 F1FjDkm3LVRywTyyPT9xX0Vf TYHguchbtqbcgWJ8RRSiETCurB 76mSBtYXxvOm1wr4W1w636CTPr NYGbnS06Tz8tdKasNMPblFLL xD3rnbofu8tciiuuSiDtJESiUG p5WBk9VOMnvHhaDnDzJGD9SmS2 GJG1tVItjF5pyMgdplrbiR4p Oyc+K15rgF8tLIT3HMY1nuxgJH KnaiPuBJ34RZ49B5ShTcyniVAn bGU+VALxllEnbLcaLJ7kOiMb h8yjt7UiDBjbG8BuXFWhFZzlFg y2PHGoOJM6dMJ6jH5cVNNyIIri h7U9aCD2F6KzgmZafy6zl2ms FNCsLDjqO18djZYro4S5UBUwrA H1ZSSfdWezIpCnfO64Egm+PGNv oYzwb3QrWjzya8ufu4iqxCo3 LvGkCUBztvIayVwpYYJ0n8VjBw 38G75eKVumSSWgYADtCWXuOVVj lSknmx1gbF0sJu2+PGNvbCB3 vJM1rK0cCUMvZmT6NVttW684An ZrhTEhFmzol3fml5hawFq1WaEp WYJtwiXplVqvSDY1w2XpWv95 O53jPAstYXMlPDLpNKEcOGLsjF xybx2koX5qCi4+ON1ps2ozod74 yY70tPX+FASgYSG0qJvuFJbs VYVnwK1zCKvgEqW2AXAoVtKngC 43kOKxAXofAj9emCinbEssTR0o VZZyrejww988AyTeo6kmSKBt rHVpVZsmJVX7Y88cz8J9EZYmBF VeJUZ4xRO2nU5nvHhacmkkrVPa rKldptCqzWmoYHvbEYgoS070 IHRvcDsnPlBhdGllbnQgTmFtZT z4K8FcWri1XPVfsYvoDC1bjUGl LFtuNs2xzWzmxJmlIL8rCIIb wkfmx653XjJbu2icXZLksVSpSW apTEW1E83ma3C7KPWgPVCmNMW0 zUY9fY7ueZvnxoizsBEneHdv uvPuzEweMIwuUZlnU975XSRhgD drGaRcwyWoIHCmmYN8DA10SW61 qIFon1K0nBJ0Y1QjBQArihij yxydfGD9NJErEVVvvM66Ue3vhP vqXk8eDJOoXCT2UPYxbCJuQ9Lb fV3hMbWxZPMgWEFzL4LtaTAm CNdgB189JPqlNaI9AEPdseSgD7 CnSKDhiRpzElU0f3Y1Kr9XS5U4 UD66XC32mPGut2O0fYY6J2Zu VJEnlooyygwawIS3CUUrXATqgI 15Ca9qdWbfXe7uGYGvLFO7VDKk zFTaA5UxkA8wSiSkDCUwHFEa E2AulSEwMShcB127HHntCfN3BL TirtUaV7XgUXSywNksHeS4c6W8 Ve7VPKm9JY20OE42kGKhz1Y3 xAJ0S7XjQSGiurymcqsuaTR0KW DeVFKmjJ88Ip5ugYclRe5cFTXt KKA8UIDufAGyQ7UutX2oDpAi YOWbRZPiX3KchBVsFFqpC067SR ceVwY5NGEjlpMwO7PvPFZafCex DyQ0p2I5Af0PONShOJ33TFK1 aTY4II66WM08P8JzBwninOBlkE U+PHRhYmxlIHdpZHRoPScxMDAl VeTppFjzRQ5zKp7iVDOzQNFd dTxepAWqTiXnl8evMSQrYKnxEB 6xeIdvV5KsmSF4ZBYxs4u3Fq98 X72uF3LjnWT+PRSpdLF3lJR0 lM9uJwUhNyQ3BSsiM319IoFnwF YdYqyao2ver2vbmYq1EtA0NPLj hlIigXutMJQ7x7HdNo49G68q IHdpZHRoPSIxNSUiIHZhbGlnbj 4rgM3bXq0+VIHzoYA6nJO1cV3s AgAvXbY3SMsmE280BqMbuEBc Ylbvb7dks7zlsKl7XhKlCZLuzm ZlxOacYNG8y9VtOs48I2GxwQuj z2ElXpy3ut95cCTuv7V9tUW4 L4AgANZnkpijtRFlxYeuIA0dMV FyioufIOEpdO9wDCTaZ9b1JgQz VjP7KTyhG6JcijB1SNGwvGKw DOxpLUC2G19dh2M8PMGmYQIfER E8rBX7gV7ikUbtpjlluZOwxOlc dlPbdAfsJIesHQdxI640HIKo kLplFXXzyI3jZEGvbFUpbLacKQ 4wNTBpbjsnPlNURUlOLCBWSVJH DJ1PBOBMCTU9E3CrSew2NERz lJyvPD8mrIMaVApuRy5phKbeiT odWX0nGSBswnsnMCSosO0rSAMv nRBjgHrsCO6xOEBbppfxb033 VrYcEIF7NWMojABeR3NroP4zWc JeAJSrPDCdD6MieVRrFIqvY976 AQhtYkU1TUKepfMfM8UtIABp mTwuPzD7w6F1Qn4dPB3bFB0iTZ pbVU20HO02yUBei3E8mPN0L4By SFBavvbkvdihaBW5EZKeMQBe iX31iPXhFPwtTx5rk6R9v541JA JkAGIsbO82St4mlSmhIWUveFUQ dC0gjtgkd1izpsslPwRfYVYr JXx5WIe4KFCbaIayCrEfYIB4Ow L4TTJ9uSVufL2uiAgurfytqT5j Oyc+DfwgVRSiudD3V9XpUpf1 KPGbyNbfYM0hgHLiZXjfNb3dtW yilKeiUA8qZJEvsewjBACvxL4z OCCcsRPtgJxjXG0dPCFflzpz z812JwXmUBB9ULMjzLAqV8OesW 0lXoNeLUVcXYFmZ2NhoPXkJXum O973PJlwLcN3PUPchpBfZ6Kn MZCbpKkjJmD3g2S5Ba5QNB2LSG R9I3DoLyr4ZRNhrPjjVD3pgWIt QWxnLm4qdHdglWxcLX1tJKSd fadsTFWluZ8aJYKgbTYoaXxuLZ 9wEOVwszhky107KvCsBWW5ODZc sRFoQ6LoqB4gNjEsLVYtYORz T6KicOZiFLmaR608KNnaLcG0AN EraoBoL8NsDFUgdHjzFtT5q0N2 Zm9GvHRdM6RcW0y9K8WpOqeq dHI+VW62XSFgSO08mPDraPXnw6 cdvDv0MjCnWARkYXR1eBxePRwl f9PeJWXoL21fmBOvp6I1NNFm cTlneZHwGoEtnXT2xP8nPIslvl eua8xujoegAwjrl3fqjk98cO98 X75pRJhvEXMkSPDwLOHaTXLc jAamgp5xuQ1hAs5+KHTrhKZ8mW V0oS2sFsOuSaO9JOnjS334TfGk iARhZttoy7eko5zsuOu9XeKq NWMmsjJysNyoBLL6a1DvEo63R2 9sIHdpZHRoPSIyMCUiIHZhbGln cp6ctS0jMd6+ZN9yy6ldlj61 hU15aQW+MEFkLPI7cEajZLbqGH JuxG9vTSlpLhU1USOuJaExqX18 iJXaPRulVd7pwNgdrAbhBK5f XQKkpoaqw848JhIoh3wwHYVrtN HrQWjeGZB3X76od6Y7HGGgUINw CTJ0uLQ5jP9grQqcwiephNNu eBoeksHngKtdVCkiSTzwS691HT UspIofAiDvaTZhX7azlpICWY8s OjwvdGQ+ZISaTFS4yMurNIdb GGNeaB9rLKYuG0p1CcHrIoZ8WU rbW9SipcG8RGMncTZpERHtiMBD mU4fiaabn7zdqcorMwGeTEFn EYr3ZHw3MOBerHecXnGbRHR2Os D8NFM8aSSopF2srRpnxhqdjP5x Oyc+RklOOjwvdGQ+PHRkIHN0 tSmtJPzaJHRpyT0yONRvW6v9Ga WcOuH4GQjsE8QaneP6VZShmWKy CDAqiDQTzY8hmdjje9aobmqi BuJbFMSoGNi2IRo6AUXcsMlmRp TrIMX8CrL8DCJ1gCQwfT1bbQoe ltpvvH5uRut+TVJOOjwvdGQ+ PYOiSNO3bXsaRJexMOGpoQ6bTK KvX1w8JdFuTyB9MFikU1SkzxN9 METsoUKhVQMeiXZYeS3iukvx j8qbbwelIkDlBIAnBYw9AAm8GL GpgTzfPlOzRCR9AeC0SJG1rSIm eX8pxZqmgvldvS6ySvl+UGF5 TXO4UG22EC53N5BtKoomqEOwjN U+PHRhYmxlIHdpZHRoPScxMDAl DcFkyYwsCM2yIa6mRNOmUJBg bGx (more content not included)... Normal [facility] ED Clinical Summaryon 2021 ED Clinical Summary [facility] - Emergency Department [address] [place] [address] ED Clinical Summary PERSON INFORMATION Name: ZULEIKA WYATT Age: 31 Years Sex: FEMALE : 1990 MRN: Acct#: Visit Reason: Rib/trunk pain-swelling; ABD PAIN Arrival: 11/13/2021 16:30:24 Discharge: 11/13/2021 18:01:00 LOS: 000 01:31 Check In: 11/13/2021 16:30:24 Checkout:11/13/2021 18:01:00 Address: [address] [place] [address] [address] [facility] [address] PCP: Andie Stoddard PROVIDER INFORMATION Provider Role [...] With: Address: When: CUONG ORTIZ [address] [place] [address] Within 1 to 2 days [...] results be sent to Dr. Ortiz, your VIAL GAUGER physician. She will contact his office tomorrow [...] verbalizes understanding of instructions given Comment: Normal [facility] ED Note-Nursingon 11-13-2021 ED Note-Nursing [...] ED Patient Summaryon 022 ED Patient Summary [facility] - Emergency Department [address] [place] [address] PATIENT DISCHARGE INSTRUCTIONS Patient Information Name: ZULEIKA WYATT Age: 31 Years Date of : 1990 Reason For Visit: Rib/trunk pain-swelling; ABD PAIN Arrival Time: 11/13/2021 16:30:24 Primary Care Physician: Andie Stoddard Attending Physician: Gamaliel Wyman MD Comment: Visit Diagnosis: Diagnoses This Visit Elevated blood pressure reading (R03.0) History of abdominal pain (Z87.898) at early stage (Z34.90) Rib/trunk pain-swelling ([id number]) Prescription Information: If you have been given a prescription for narcotics, seek immediate medical attention if you have any difficulty breathing or any sudden status changes such as confusion and sleepiness. If you or anyone you know is experiencing suicidal thoughts, mental health, alcohol and/or drug addiction problems; contact the [facility] 07/01 Crisis Hotline -Text 4HRLT to 949932. If you received any narcotics, sedation, or [...] legal documents With: Address: When: CUONG ORTIZ [address] [place] [address] Within 1 to 2 days Comments: Diagnosis [...] results be sent to Dr. Ortiz, your VIAL GAUGER physician. She will contact his office tomorrow [...] with a doctor, nurse practitioner, or physician?s office assistant for ongoing care. If your symptoms [...] so we can reach you if necessary. [facility] Emergency Department has provided you with a complete list of medications post discharge. Please inform your primary operator/provider of your visit and for further [...] Temporal: 3 (more content not included)... Normal [facility] hCG Quantitativeon 2 hCG Quantitative 84078.0 mIU/mL High 0.0-0.6 [facility] Comment on above: Order Comment: Lucy whitney call or fax results to Dr. Ortiz's office Result Comment: Resu lt confirmed by dilution Post-Menopausal Reference Range is: 0.1-11.6 mIU/mL Performed By: #### 7 [id number] #### [facility] (DEFAULT) [address] [place] [address] Coding Summary.on 12-19-2018 Coding Summary. CODING DATE: 019 FINAL [facility] DSC STATUS: Left Against Medical Advice PAYOR: [...] Boykin Date Saved: 12/19/2018 10:35 am Normal [facility] ED Clinical Summaryon 2018 ED Clinical Summary (Inserted Image. Elena ble to display) [place] [id number] ED Clinical Summary Person Information Name: ZULEIKA VILLALTA/[facility] Age: 28 Years : 1990 12:00 AM Sex: Female Language: PCP: Marital Status: Phone: [phone] Visit Id: Visit Reason: Test; MENSTRUAL PROBLEMS [...] 5:58 PM 12/15/2018 5:58 PM ADDRESS: [address] [place] [address] [address] [place] [id number] PHYS DOC NOTES: MEDICAL INFORMATION: Prescriptions Given: PATIENT EDUCATION INFORMATION: Instructions: Follow up: DIAGNOSIS: Normal [facility] ED Patient Education Noteon 12-15-2018 ED Patient Education Note Normal [facility] ED Patient Summaryon 019 ED Patient Summary (Inserted Image. Elena ble to display) [place] [id number] Patient Discharge Instructions Person Information Name: ZULEIKA VILLALTA Age: 28 Years Arrival Date: 12/15/2018 4:37 PM Discharge Diagnosis: Primary Care Physician: Provider Information Primary Provider: Advanced Evaporator Operator Molasses:None The exam and treatment you received in the Emergency Department were for an urgent problem and are not intended as complete care. It is important that you follow up with a doctor, nurse practitioner, or physician?s office assistant for ongoing care. If your symptoms [...] opioids can be used to help relieve [id number] pain and are often prescribed following a [...] struggling with addiction, tell your health rn homecare and ask for guidance or call [facility]?S National Helpline at 3-321-314-ZDTP. h Source: [place] Department of Health and Human Services/Center for Disease Control & Prevention [facility] Medications Given: Medication Dose Route No medications found. Medication Information: Comment: Pharmacy Information: Thank you for choosing [facility] Patient Education Materials: JADEN Jacome [place] , have received the following patient education materials/instructions and have verbalized understanding: Patient Education Materials: Follow-up Instructions: Prescriptions: Patient Signature __ Date Clinician/Nurse Signature Date 12/15/18 17:58:10 [facility] Progress Note-Nurseon 2018 Progress Note-Nurse [...] to take care of her daughter. Normal [facility] U BetaHcg Qualon 12-15-2018 HCG.beta subunit (U) [Moles/Vol] Negative Normal [facility] Comment on above: Performed By: #### 2 [id number] #### [facility] [address] [place], [place] [address] UA With Cult Reflexon 2018 Bacteria LM Ql (Urine sed) TRACE Normal Trace [facility] Comment on above: Performed By: #### 2 [id number], [id number] #### [facility] [address] [place] [address] Bilirubin Ql (U) Negative Normal Negative [facility] Comment on above: Performed By: #### 2 [id number], [id number] #### [facility] [address] [place] [address] Clarity (U) CLEAR Normal Clear [facility] Comment on above: Performed By: #### 2 [id number], [id number] #### [facility] [address] [place] [address] Color (U) YELLOW Normal Yellow [facility] Comment on above: Performed By: #### 2 [id number], [id number] #### [facility] [address] [place] [address] Epithelial cells.squamous LM.HPF (Urine sed) [#/Area] 0-2 Normal 0-2 [facility] Comment on above: Performed By: #### 2 [id number], [id number] #### [facility] [address] [place] [address] Glucose Test strip (U) [Mass/Vol] Negative Normal Negative [facility] Comment on above: Performed By: #### 2 4889091, [id number] #### [facility] [address] [place] [address] Hemoglobin Ql (U) Negative Normal Negative [facility] Comment on above: Performed By: #### 2 9371296, [id number] #### [facility] [address] [place] [address] Ketones (U) [Mass/Vol] Negative Normal Negative [facility] Comment on above: Performed By: #### 2 6380255, [id number] #### [facility] [address] [place] [address] [place].plasma/[place] .RBC (Bld) [Mass ratio] 0-3 Normal 0-3 [facility] Comment on above: Performed By: #### 2 7732146, [id number] #### [facility] [address] [place] [address] Nitrite Ql (U) Negative Normal Negative [facility] Comment on above: Performed By: #### 2 9278353, [id number] #### [facility] [address] [place] [address] pH (U) 6.5 [pH] 5.0-9.0 [facility] Comment on above: Performed By: #### 2 6883573, [id number] #### [facility] [address] [place] [address] Protein (U) [Mass/Vol] Negative Normal Negative [facility] Comment on above: Performed By: #### 2 7970255, [id number] #### [facility] [address] [place] [address] Specific gravity (U) [Rel density] 1.010 1.005-1.03 0 [facility] Comment on above: Performed By: #### 2 7040438, [id number] #### [facility] [address] [place] [address] UA Spec Desc Clean Catch Normal [facility] Comment on above: Performed By: #### 2 4327246, [id number] #### [facility] [address] [place] [address] Urobilinogen Qn (U) 0.2 {Pamela'U}/dL Normal 0.0-1.0 [facility] Comment on above: Performed By: #### 2 0337323, [id number] #### [facility] [address] [place] [address] WBC Auto Ql (U) Negative Normal Negative [facility] Comment on above: Performed By: #### 2 8578827, [id number] #### [facility] [address] [place] [address] WBC LM.HPF (Urine sed) [#/Area] 0-5 Normal 0-5 [facility] Comment on above: Performed By: #### 2 [id number], [id number] #### [facility] [address] [place] [address] Auto Diffon 12-12-2017 Basophils Auto #/vol (Bld) 0.1 E3/mcL Normal 0.0-0.2 [facility] Comment on above: Order Comment: Order Added by Discern Expert. Performed By: #### 2 159671 ####KADEN BairdSloXawp280[address] [place] [address] Basophils/100 WBC Auto (Bld) 0.9 % Normal 0.0-2.0 [facility] Comment on above: Order Comment: Order Added by Discern Expert. Performed By: #### 2 668575 ####KADEN BairdNitVgcd07[address] [place] [address] Eos Absolute 0.0 E3/mcL Normal 0.0-0.7 [facility] Comment on above: Order Comment: Order Added by Discern Expert. Performed By: #### 2 626494 ####KADEN BairdKoeAqbc8441 [place] [address] Eosinophils/100 leukocytes 0.4 % Normal 0.0-11.0 [facility] Comment on above: Order Comment: Order Added by Discern Expert. Performed By: #### 2 831167 ####KADEN Luceroo[address] [place] [address] Lymphocytes 1.4 E3/mcL Normal 1.2-3.4 [facility] Comment on above: Order Comment: Order Added by Discern Expert. Performed By: #### 2 792394 ####KADEN [address] [place] [address] Lymphocytes/100 leukocytes 16.6 % Low 20.0-55.0 [facility] Comment on above: Order Comment: Order Added by Discern Expert. Performed By: #### 2 233403 ####KADEN [address] [place] [address] Mccracken Absolute 0.5 E3/mcL Normal 0.0-0.7 [facility] Comment on above: Order Comment: Order Added by Discern Expert. Performed By: #### 2 000554 ####KADEN [address] [place] [address] Monocytes/100 leukocytes 5.5 % Normal 0.0-10.0 [facility] Comment on above: Order Comment: Order Added by Discern Expert. Performed By: #### 2 907543 ####KADEN [address] [place] [address] Neutro Absolute 6.7 E3/mcL High 1.4-6.5 [facility] Comment on above: Order Comment: Order Added by Discern Expert. Performed By: #### 2 280540 ####KADEN [address] [place] [address] Neutro Auto 76.6 % High 37.0-75.0 [facility] Comment on above: Order Comment: Order Added by Discern Expert. Performed By: #### 2 831854 ####KADEN [address] [place] [address] CBC w/ Auto Diffon 8 Erythrocyte distribution width Auto Ratio (RBC) 15.0 % High 11.5-14.5 [facility] Comment on above: Performed By: #### 2 393374 ####KADEN [address] [place] [address] Erythrocytes (RBC) 4.94 E6/mcL Normal 3.90-5.40 [facility] Comment on above: Performed By: #### 2 836231 ####KADEN BairdFhkKwko1409 [place] [address] Hematocrit (HCT) 40.0 % Normal 36.0-48.0 [facility] Comment on above: Performed By: #### 2 584474 ####KADEN BairdZkfTmll2271 [place] [address] Hemoglobin mass conc (Bld) 13.0 g/dL Normal 12.0-16.0 [facility] Comment on above: Performed By: #### 2 956757 ####KADEN BairdUhsVlvo[address] [place] [id number] MCH 26.2 pg Low 27.0-31.0 [facility] Comment on above: Performed By: #### 2 095525 ####KADEN [address] [place] [id number] MCHC mass conc (RBC) 32.4 g/dL Low 33.0-37.0 [facility] Comment on above: Performed By: #### 2 770852 ####KADEN BairdVstAppt[address] [place] [address] MCV 81.0 fL Normal 78.0-100.0 [facility] Comment on above: Performed By: #### 2 970887 ####KADEN BairdXqgFgjn0207 [place] [address] Platelet mean volume (PMV) 7.5 fL Normal 7.4-11.0 [facility] Comment on above: Performed By: #### 2 518742 ####KADEN BairdTntKrwt55[address] [place] [address] Platelets 347 E3/mcL Normal 130-400 [facility] Comment on above: Performed By: #### 2 251941 ####KADEN BairdLmvVwut0161 [place] [address] WBC (Leukocytes) 8.7 E3/mcL Normal 3.6-11.0 [facility] Comment on above: Performed By: #### 2 703717 ####KADEN BairdGgrUwdb9889 [place] [address] CMPon 12-12-2017 Alanine aminotransferase (ALT) 14 Int._Unit/L Normal 10-40 [facility] Comment on above: Performed By: #### 2 370394 ####KADEN [address] [place] [address] Albumin 3.8 g/dL Normal 3.2-5.0 [facility] Comment on above: Performed By: #### 2 784692 ####KADEN [address] [place] [address] Albumin/Globulin Ratio 1.0 {ratio} Low 1.1-1.9 [facility] Comment on above: Performed By: #### 2 581078 ####KADEN [address] [place] [address] Alk Phos 75 Int._Unit/L Normal 42-121 [facility] Comment on above: Performed By: #### 2 521636 ####KADEN [address] [place] [address] Aspartate aminotransferase (AST) 18 Int._Unit/L Normal 10-42 [facility] Comment on above: Performed By: #### 2 763139 ####KADEN [address] [place] [address] Bili Total 1.0 mg/dL Normal 0.2-1.0 [facility] Comment on above: Performed By: #### 2 672597 ####KADEN [address] [place] [address] BUN/Creatinine Ratio 12.5 ratio Normal 5.4-30.0 [facility] Comment on above: Performed By: #### 2 030651 ####KADEN [address] [place] [address] Creatinine 0.8 mg/dL Normal 0.6-1.3 [facility] Comment on above: Performed By: #### 2 375072 ####KADEN [address] [place] [address] Globulin 3.8 g/dL Normal 2.0-4.0 [facility] Comment on above: Performed By: #### 2 443547 ####KADEN BairdSluBhyv7696 [place] [address] Protein 7.6 g/dL Normal 6.4-8.3 [facility] Comment on above: Performed By: #### 2 284859 ####KADEN [address] [place] [address] Urea nitrogen 10 mg/dL Normal 7-18 [facility] Comment on above: Performed By: #### 2 012124 ####KADEN [address] [place] [address] Calcium 9.3 mg/dL Normal 8.4-10.2 [facility] Comment on above: Performed By: #### 2 175413 ####KADEN [address] [place] [address] Chloride 105 mmol/L Normal 98-107 [facility] Comment on above: Performed By: #### 2 317193 ####KADEN [address] [place] [address] CO2 25.1 mmol/L Normal 24.0-30.0 [facility] Comment on above: Performed By: #### 2 176540 ####KADEN [address] [place] [address] Glucose mass conc 101 mg/dL High 70-99 [facility] Comment on above: Performed By: #### 2 492235 ####KADEN [address] [place] [address] Potassium molar conc 3.4 mmol/L Low 3.5-5.1 [facility] Comment on above: Performed By: #### 2 287169 ####KADEN [address] [place] [address] Sodium 140 mmol/L Normal 136-145 [facility] Comment on above: Performed By: #### 2 240105 ####KADEN BairdDhfPfjz3713 [place] [address] Lipase Levelon 12-12-2017 Lipase Lvl 30 U/L Normal 8-57 [facility] Comment on above: Performed By: #### 2 279464 ####KADEN [address] [place] [address] UA Completeon 12-12-2017 UA Blood 3+ Normal Negative [facility] Comment on above: Performed By: #### 2 126113 ####KADEN BairdXljQwqb9382 [place] [address] UA Bacteria Trace Abnormal None [facility] Comment on above: Performed By: #### 2 982645 ####KADEN [address] [place] [address] UA Clarity SltCloudy Abnormal Clear [facility] Comment on above: Performed By: #### 2 110125 ####KADEN DaoVktm9750 [place] [address] UA Hyal Cast 0-2 Normal 0-2 [facility] Comment on above: Performed By: #### 2 592386 ####KADEN IslYofm[address] [place] [address] UA Leuk Est 3+ Abnormal Negative [facility] Comment on above: Performed By: #### 2 043075 ####KADEN KdkFhll[address] [place] [address] UA Mucous Many Abnormal Trace [facility] Comment on above: Performed By: #### 2 528006 ####KADEN LwvDlsq8712 [place] [address] UA Nitrite Negative Normal Negative [facility] Comment on above: Performed By: #### 2 249379 ####KADEN HxlZiuw6267 [place] [address] UA pH 5.0 Normal 4.6-8.0 [facility] Comment on above: Performed By: #### 2 218757 ####KADEN FdxIoqq8629 [place] [address] UA Protein 1+ Abnormal Negative [facility] Comment on above: Performed By: #### 2 251717 ####KADEN AxlQgqh1811 [place] [address] UA Spec Grav 1.026 Normal 1.003-1.03 0 [facility] Comment on above: Performed By: #### 2 599981 ####KADEN EkvEufr4256 [place] [address] UA Squam Epithelial 0-5 Normal 0-5 [facility] Comment on above: Performed By: #### 2 580266 ####KADEN [address] [place] [address] UA Urobilinogen 2.0 mg/dL Abnormal [facility] Comment on above: Performed By: #### 2 546956 ####KADEN [address] [place] [address] UA WBC >50 Abnormal 0-5 [facility] Comment on above: Performed By: #### 2 299754 ####KADEN [address] [place] [address] Urine, color Yellow Normal Yellow [facility] Comment on above: Performed By: #### 2 457246 ####KADEN [address] [place] [address] Urine, erythrocytes 20-50 Abnormal 0-3 [facility] Comment on above: Performed By: #### 2 416593 ####KADEN [address] [place] [address] Urine, glucose Negative Normal Negative [facility] Comment on above: Performed By: #### 2 707731 ####KADEN [address] [place] [address] Urine, ketones presence Trace Normal [facility] Comment on above: Performed By: #### 2 877683 ####KADEN [address] [place] [address] Urine, urobilinogen Negative Normal Negative [facility] Comment on above: Performed By: #### 2 798344 ####KADEN [address] [place] [address] eGFRon 12-12-2017 eGFR AA >60 Normal [facility] Comment on above: Order Comment: Order Added by Discern Expert. Performed By: #### 2 905827 ####KADEN BairdDujDoyz2284 [place] [address] eGFR (non-black) mL/min/{1.73_m2} Normal [facility] Comment on above: Order Comment: Order Added by Discern Expert. Performed By: #### 2 587853 ####KADEN [address] [place] [address] HISTORY PHYSICALon 06-18-201 8 HISTORY PHYSICAL HNO ID: [id number] thor: Clara ChaoeService: Maternal MedicineAuthor Type: PhysicianType: HANDPFiled: 12/02/2017 9:04 AMNote Text:STANDARD [facility] [place] DOCUMENTDISCHARGE SUMMARYPatient Name: Zuleika Gtz Date: 11/30/2017 [...] with provider.Clara Jama, DO Normal [facility] PROGRESSon 12-02-2017 PROGRESS HNO ID: [id number] thor: Marie Lema (Res) JabiereService: ObstetricsAuthor Type: [...] with more than 50% of the total cfsy-tc-znkfujoi of the visit in counseling / coordination [...] decreasing.Ambulating without difficulty.OBJECTIVE:PHYSI GEN EXAM:Heart: RR, S1, Q7Uqleu: clear to auscultationAbdomen: Soft Bowel sounds present [...] 2017 : 5:45 AM Normal [facility] SOCIAL WORKon 12-02-2017 SOCIAL WORK HNO ID: [id number] thor: Meredith Jackson (Sw)oService: Social WorkAuthor Type: Social WorkerType: Social WorkFiled: 12/02/2017 12:25 PMNote Text:SOCIAL WORK CONSULT NOTESERVICE DATE: 12/02/2017SERVICE TIME: 1015Referred by: Jose for visit:Maternal/Infant - adjustment to conditionLiving Arrangement: HomeLives With: PartnerFinancial Resources: DisabledPrimary Contact:Extended Emergency Contact Information DARRELL BRANCH IIPratrium health kann[place]elaida Emergency Contact: No,ContactRelation: OtherSupportive: YesOther Important Patient [...] from hospital. (FOBparents are Anamika Munoz of [address] [place] [address] , [facility]).Per pt and FOB, all needed baby supplies and equipment are at the [facility] and a nursery has been set up.Per pt, name of baby girl is Martha Branch.Pt states she is on SSI and WIC.Pt shares that she is in ongoing counseling at [facility] in [place] and has appointments 2 x per month.Discussed with pt and FOB signs and sx of depression; safe babysleep and discussed ways to deal with crying . Pt again states sheis going to rely on her support system.No additional issues identified at this time. Encouraged pt and FOB toutilize services through [facility]. Providedcontact information.Outcome/Recomm endations:[facility] spent (minutes): 60SIGNATURE: CARLA Goncalves PATIENT NAME: Zuleika Hernandez: December 02, 2017 : 11:10 AM PAGER/CONTACT#: Debo [facility] ANES INTRAOPon 12-01-2017 ANES INTRAOP HNO ID: [id number] thor: Terrance Lockhartervice: AnesthesiologyAuthor Type: Nurse AnesthetistType: Anesthesia IntraOpFiled: 12/01/2017 9:41 AMNote Text:ANALGESIA PROGRESS RECORDCATHETER REMOVAL/END OF CASESERVICE DATE: 12/01/2017REMOVAL DATE AND TIME: 11/30/2017, 1953DELIVERY DATE AND TIME: 11/30/2017 at 5:49 PMCATHETER REMOVAL:Catheter Removal: See [facility] Nursing noteSIGNATURE: Terrance Contreras APRN.COMPUTERIZED MACHINE FABRIC CUTTER PATIENT NAME: Zuleika Hernandez: December 01, 2017 : 9:40 AM PAGER/CONTACT #: [facility] ANES Keke 12-01-2017 ANES POST HNO ID: [id number] thor: Terrance WillsgService: AnesthesiologyAuthor Type: Nurse AnesthetistType: [...] 01, 2017 : 9:42 AM PAGER/CONTACT #: [facility] PROGRESSon 12-01-2017 PROGRESS HNO ID: [id number] thor: Marie Lema (Joaquín) LendeService: ObstetricsAuthor Type: [...] decreasing.Ambulating without difficulty.OBJECTIVE:PHYSI GEN EXAM:Heart: RR, S1, N5Uokuo: clear to auscultationAbdomen: Soft Bowel sounds present [...] 2017 : 6:40 AM Normal [facility] ABO/Rh Confirmationon 2017 ABO group Nom (Bld) A Normal [facility] Comment on above: Performed By: #### A JESSIE #### [place] [address] RH Type Positive Normal [facility] Comment on above: Performed By: #### A JESSIE #### [place] [address] ANES PREOPon 11-30-2017 ANES PREOP HNO ID: [id number] thor: Aaron (Block Handler) ChinoService: AnesthesiologyAuthor Type: Nurse AnesthetistType: Anesthesia PreOpFiled: [...] of Sleep Apnea: DeniesHematocritDate Value Ref Range Xtktjn9911/30/2017 32.3 (L) 34.1 - 44.9 % Final Platelet CountDate Value Ref Range Fhztbj5611/30/2017 193 182 - 369 thou/cmm Final Vitals: [...] Disp: Rfl:Inpatient medications reviewed in [facility].I have interviewed and examined the patient. I have reviewed the medicalrecord , pertinent consults and/or the pre-anesthesia evaluation,pertinent labs, and test results.Significant changes in the patient's condition since the History andPhysical, not otherwise documented in primary service progress notes: [facility] contains updated information obtained within 48 hours ofSurgery/Procedure.SIGNAT URE: Hema Cuellar APRN.COMPUTERIZED MACHINE FABRIC CUTTER PATIENT NAME: Zuleika LambATE: November 30, 2017 : 12:13 PM : 1990 Normal [facility] Auto Diffon 11-30-2017 Basophils Auto #/vol (Bld) 0.1 E3/mcL Normal 0.0-0.2 [facility] Comment on above: Order Comment: Order Added by Discern Expert. Performed By: #### 2 989932 ####KADEN BairdXrsPfhx3590 [place] [address] Basophils/100 WBC Auto (Bld) 0.9 % Normal 0.0-2.0 [facility] Comment on above: Order Comment: Order Added by Discern Expert. Performed By: #### 2 942919 ####KADENMorelia BairdOfhEvdu7849 [place] [address] Eos Absolute 0.1 E3/mcL Normal 0.0-0.7 [facility] Comment on above: Order Comment: Order Added by Discern Expert. Performed By: #### 2 292732 ####KADEN TkuEqxi4385 [place] [address] Eosinophils/100 leukocytes 1.0 % Normal 0.0-11.0 [facility] Comment on above: Order Comment: Order Added by Discern Expert. Performed By: #### 2 865225 ####KADEN WyaVose[address] [place] [address] Lymphocytes 2.0 E3/mcL Normal 1.2-3.4 [facility] Comment on above: Order Comment: Order Added by Discern Expert. Performed By: #### 2 855899 ####KADEN XkfBbvx9873 [place] [address] Lymphocytes/100 leukocytes 22.1 % Normal 20.0-55.0 [facility] Comment on above: Order Comment: Order Added by Discern Expert. Performed By: #### 2 414791 ####KADEN JxeXvyb0745 [place] [address] Mccracken Absolute 0.7 E3/mcL Normal 0.0-0.7 [facility] Comment on above: Order Comment: Order Added by Discern Expert. Performed By: #### 2 522334 ####KADEN [address] [place] [address] Monocytes/100 leukocytes 7.5 % Normal 0.0-10.0 [facility] Comment on above: Order Comment: Order Added by Discern Expert. Performed By: #### 2 275489 ####KADEN [address] [place] [address] Neutro Absolute 6.1 E3/mcL Normal 1.4-6.5 [facility] Comment on above: Order Comment: Order Added by Discern Expert. Performed By: #### 2 025491 ####KADEN [address] [place] [address] Neutro Auto 68.5 % Normal 37.0-75.0 [facility] Comment on above: Order Comment: Order Added by Discern Expert. Performed By: #### 2 440523 ####KADEN [address] [place] [address] CBC w/ Auto Diffon 8 Erythrocyte distribution width Auto Ratio (RBC) 14.3 % Normal 11.5-14.5 [facility] Comment on above: Performed By: #### 2 655268 ####KADEN [address] [place] [address] Erythrocytes (RBC) 4.34 E6/mcL Normal 3.90-5.40 [facility] Comment on above: Performed By: #### 2 321454 ####KADEN [address] [place] [address] Hematocrit (HCT) 35.1 % Low 36.0-48.0 [facility] Comment on above: Performed By: #### 2 817661 ####KADEN [address] [place] [address] Hemoglobin mass conc (Bld) 11.6 g/dL Low 12.0-16.0 [facility] Comment on above: Performed By: #### 2 654883 ####KADEN DxaGpsm3913 [place] [address] MCH 26.6 pg Low 27.0-31.0 [facility] Comment on above: Performed By: #### 2 752234 ####KADEN [address] [place] [address] MCHC mass conc (RBC) 32.9 g/dL Low 33.0-37.0 [facility] Comment on above: Performed By: #### 2 318281 ####KADEN [address] [place] [address] MCV 80.9 fL Normal 78.0-100.0 [facility] Comment on above: Performed By: #### 2 173334 ####KADEN [address] [place] [address] Platelet mean volume (PMV) 7.6 fL Normal 7.4-11.0 [facility] Comment on above: Performed By: #### 2 805616 ####KADEN [address] [place] [address] Platelets 217 E3/mcL Normal 130-400 [facility] Comment on above: Performed By: #### 2 733793 ####KADEN BairdVzjOgwx6121 [place] [address] WBC (Leukocytes) 8.8 E3/mcL Normal 3.6-11.0 [facility] Comment on above: Performed By: #### 2 920360 ####KADEN BairdJeaFcad8693 [place] [address] CONSULTon 11-30-2017 CONSULT HNO ID: [id number] thor: Marie Lema (Res) LendeService: ObstetricsAuthor Type: [...] T0 L0 SAB1 TAB0 Ectopic0 Multiple0 Live Sbvcyt0Jbqv of Baby 1: Not recorded Date: 2014 [...] pupils equal, no thyromegalyLungs: clearHeart: RR, S1, Z8Bgkdxwu: soft, nontender, no massesUterus: soft, NTExtremities: 1+ [...] Epi prn4. FB soon5. [place] [address]. anomalies- prominent cisterna magna, bilateral periventrcularnodular heterotopia, [...] EF 55%.10. H/o maternal clubfoot-s/p repair as jnbghy50. H/o tobacco abuseSigned out to [facility] for deliveryDr. Amado reviewed with Dr. MaldonadoSIGNATURE: Marie Hassan DO PATIENT NAME: Zuleika LambATE: November 30, 2017 : 6:49 AM PAGER/CONTACT #: [phone] Normal [facility] HISTORY PHYSICALon 8 HISTORY PHYSICAL HNO ID: [id number] thor: Marie Lema (Joaquín) JabiereService: ObstetricsAuthor Type: [...] T0 L0 SAB1 TAB0 Ectopic0 Multiple0 Live Iytdjv6Ezvm of Baby 1: Not recorded Date: 2014 [...] pupils equal, no thyromegalyLungs: clearHeart: RR, S1, Q5Dbbdobb: soft, nontender, no massesUterus: soft, NTExtremities: 1+ [...] Epi prn4. [place] soon5. [place] [address]. anomalies- prominent cisterna magna, bilateral periventrcularnodular heterotopia, [...] EF 55%.10. H/o maternal clubfoot-s/p repair as oljmth29. H/o tobacco abuseSigned out to [facility] for deliveryD/w Dr. AmadoSIGNATURE: Marie Hassan DO PATIENT NAME: Zuleika LambATE: November 30, 2017 : 6:49 AM PAGER/CONTACT #: [phone] Normal [facility] Hemogramon 11-30-2017 Erythrocyte distribution width Ratio (RBC) 13.6 % Normal 11.7-14.4 [facility] Comment on above: Performed By: #### C BC1 #### [place] [address] Hematocrit Volume Fraction (Bld) 32.3 % Low 34.1-44.9 [facility] Comment on above: Performed By: #### C BC1 #### [facility] [address] [place] [address] Hemoglobin mass conc (Bld) 10.4 g/dL Low 11.2-15.7 [facility] Comment on above: Performed By: #### C BC1 #### [facility] [address] [place] [address] MCH Entitic mass (RBC) 26.4 pg Normal 25.6-32.2 [facility] Comment on above: Performed By: #### C BC1 #### [facility] [address] [place] [address] MCHC mass conc (RBC) 32.2 % Normal 31.6-34.8 [place] Comment on above: Performed By: #### C BC1 #### [facility] [address] [place] [address] MCV Entitic volume (RBC) 82.0 fL Normal 79.4-94.8 [facility] Comment on above: Performed By: #### C BC1 #### [facility] [address] [place] [address] Platelet mean volume Entitic volume (Bld) 9.9 fL Normal 9.4-12.3 [facility] Comment on above: Performed By: #### C BC1 #### [facility] [address] [place] [address] Platelets #/vol (Bld) 193 thou/cmm Normal 182-369 [facility] Comment on above: Performed By: #### C BC1 #### [facility] [address] [place] [address] RBC #/vol (Bld) 3.94 mil/cmm Normal 3.93-5.22 [facility] Comment on above: Performed By: #### C BC1 #### [facility] [address] [place] [address] RDW SD 40.6 fl Normal 36.4-46.3 [facility] Comment on above: Performed By: #### C BC1 #### [facility] [address] [place], [place] [address] WBC #/vol (Bld) 9.85 thou/cmm Normal 3.98-10.04 [facility] Comment on above: Performed By: #### C BC1 #### [facility] [address] [place], [place] [address] LD NOTEon 11-30-2017 LD NOTE HNO ID: [id number] thor: Marie Lema (Res) LendeService: ObstetricsAuthor Type: ResidentType: LANDD Delivery NoteFiled: 11/30/2017 6:19 PMNote Text: -------Attestation signed by Serenity Maldonado MD at 12/01/2017 6:04 PMI saw and evaluated the patient. I reviewed the resident's note and agree,except that patient seen by [facility] (patient has FAS, fetus with multipleanomlaies) service, consult placed to [facility] for management of labor AND delivery.Essential primip presented at 39w with PROM, had Pugh balloon AND Pitocin foraugmentaion. Late in labor noted tachycardia that improved with IVFB ANDTylenol (mother rico had elevated temp but felt warm). [facility] [place] [facility] for evaluation (was allowed tohave delivery to abdomen AND 30 sec delay for cord clamping). Pushed well AND hadSVD of a viable female (APGARS 8,9, weight of 3200g/7#1oz) over intactperineum. Uterus slightly boggy after delivery, responded to massage AND Pitocininfusion, EBL ~500cc.Serenity Maldonado MD ----OBSTETRICSDELIVERY SUMMARY - VAGINAL DELIVERYGestational Age at Delivery: 68e5hSaprruh Date: 11/30/2017Service Time: 1800Keegan, Bg Zuleika iDllard [[id number]]Labor EventsRupture Date: 11/30/17Rupture Time: 224Rupture Type: PROMFluid [...] EpiduralMeasurements, Apgars:Code Uziel Called: YesType of Code [place] Team Needed: PlannedA digital sweep of the [...] 2017 : 6:15 PM Normal [facility] NURSING PROGon 11-30-2017 NURSING PROG HNO ID: [id number] thor: Marguerite (Rn) Sandy Albarranice: (none)Author Type: Registered NurseType: Nursing Progress NoteFiled: 11/30/2017 7:06 PMNote Text: INTRODUCED SELF TO PATIENT AND SUPPORT PERSONS. PLAN OF CARE DISCUSSED.ASSESSMENT PERFORMED. PATIENT DENIES COMPLAINTS. Normal [facility] NURSING PROG HNO ID: [id number] thor: Darcie (Rn) ANEUDY Landeroservice: NursingAuthor Type: Registered NurseType: Nursing Progress NoteFiled: 11/30/2017 10:03 AMNote Text:Patient up to shower for comfort. Boyfriend at side. On telemetrymonitors. RN remains in room. FHR difficult to maintain continuoustracing Normal [facility] NURSING PROG HNO ID: [id number] Author: Norah (Rn) KARRI Eastman Service: Nursing Author Type: Registered Nurse Type: Nursing Progress Note Filed: 11/30/2017 7:18 AM Note Text: Report given to Darcie DURAN and care transferred at this time. Normal [facility] PROCEDUREon 11-30-2017 PROCEDURE HNO ID: [id number] thor: Aaron (Block Handler) PoloService: AnesthesiologyAuthor Type: Nurse AnesthetistType: ProceduresFiled: 11/30/2017 [...] Catheter in Epidural Space: 5 cmInterspace: approximately L2-N8Rotbng of Attempts: 1Wet Tap Complication: NoDural Puncture [...] nurses' documentation for additional vitals.SIGNATURE: Hema Cuellar APRN.COMPUTERIZED MACHINE FABRIC CUTTER PATIENT NAME: Zuleika BecerrilnDATE: November 30, 2017 : 12:27 PM PAGER/CONTACT #: [facility] PROGRESSon 11-30-2017 PROGRESS HNO ID: [id number] thor: Marie Lema (Res) LendeService: ObstetricsAuthor Type: ResidentType: Progress NotesFiled: 11/30/2017 5:04 PMNote Text:UpdatePatient is pushing in the OR. Cat I FHRT with baseline around 160s. updated and in house.Franki Neri 2017 5:04 PM [facility] PROGRESS HNO ID: [id number] Author: Darcie (Rn) KARRI Landeros Service: Nursing Author Type: Registered Nurse Type: Progress Notes Filed: 11/30/2017 3:29 PM Note Text: Patient feeling pressure, cervical exam 9.5 cm. NICU notified. Patient feels warm, but temp 36.9. [facility] PROGRESS HNO ID: [id number] thor: Marie Lema (Res) LendeService: ObstetricsAuthor Type: [...] pt comfortable4. s/p FB5. [place] [address]. anomalies- prominent cisterna magna, bilateral periventrcularnodular heterotopia, [...] EF 55%.10. H/o maternal clubfoot-s/p repair as odoynt53. H/o tobacco abuse12. Cat II- Isolate late decelerations. Moderate variability. Continuingto make cervical change. Not on Cat II protocol.SIGNATURE: Marie Hassan DO PATIENT NAME: Zuleika BecerrilnDATE: November 30, 2017 : 1:35 PM PAGER/CONTACT #: [phone] Normal [facility] PROGRESS HNO ID: [id number] thor: Yolanda (Res) SnyderService: ObstetricsAuthor Type: ResidentType: [...] pt comfortable4. s/p FB5. [place] [address]. anomalies- prominent cisterna magna, bilateral periventrcularnodular heterotopia, [...] EF 55%.10. H/o maternal clubfoot-s/p repair as pirsxv88. H/o tobacco abuseSIGNATURE: Yolanda Barbosa DO PATIENT NAME: Zuleika LambATE: November 30, 2017 : 1:11 PM PAGER/CONTACT #: [phone] Normal [facility] PROGRESS HNO ID: [id number] thor: Yolanda Almonteervice: ObstetricsAuthor Type: ResidentType: Progress [...] Lema (Res) Sonya)Station: -2 (11/30/17 0648 : Marei Lema (Res) Sonya)Presentation: (not recorded)MEMBRANES:Status: Membrane Status: Premature (11/30/17 0853 : Darcie (Rn) TigerRN)Rupture Date: 11/30/17 (11/30/17 0853 : Darcie (Rn) Tigre, RN)Rupture Time: 0225 (11/30/17 0853 : Darcie (Rn) Tigre, RN)Amniotic Fluid Color: Clear (11/30/17 0853 : Darcie (Rn) Tigre RN)Additional Findings: NoneFETAL MONITORINGFHT: 145/mod/+accels/neg decelsToco: 2-4 minutesCategory: ILABSDiagnostic tests reviewed for today's visit: No new labsAssessment/Plan27 year old EGA:39w0d. Admitted for augmentation of labor forPROM?1. GBS-2. Pit per protocol3[place] [address]. [place] [address]. anomalies- prominent cisterna magna, bilateral periventrcularnodular heterotopia, [...] EF 55%.10. H/o maternal clubfoot-s/p repair as jebgeo54. H/o tobacco abuseSIGNATURE: Yolanda Barbosa DO PATIENT NAME: Zuleika BecerrilnDATE: November 30, 2017 : 11:05 AM PAGER/CONTACT #: [phone] [facility] PROGRESS HNO ID: [id number] Author: Darcie (Rn) KARRI Landeros Service: Nursing Author Type: Registered Nurse Type: Progress Notes Filed: 11/30/2017 10:35 AM Note Text: Unable to find labwork for chart. [facility] PROGRESS HNO ID: [id number] thor: Marie Lema (Res) JabiereService: ObstetricsAuthor Type: [...] Pit per protocol3[place] [address]. [place] [address]. anomalies- prominent cisterna magna, bilateral periventrcularnodular heterotopia, [...] EF 55%.10. H/o maternal clubfoot-s/p repair as tehraj38. H/o tobacco abuse?SIGNATURE: Maire Hassan DO PATIENT NAME: Zuleika LambATE: November 30, 2017 : 10:31 AM PAGER/CONTACT #: [phone] [facility] PROGRESS HNO ID: [id number] thor: ANEUDY Seaman Rnervice: NursingAuthor Type: Registered NurseType: Progress NotesFiled: 11/30/2017 10:13 AMNote Text:Patient remains in shower. RN and boyfriend at side. EFM on telemetryand adjusted while patient in shower. Difficult to keep baby on. Normal [facility] PROGRESS HNO ID: [id number] thor: Yolanda (Res) GabrielaerService: ObstetricsAuthor Type: ResidentType: Progress NotesFiled: 11/30/2017 7:35 AMNote Text:In to place FB. Pt tolerated procedure well. Continues to leak clearfluid. Pt uncomfortable with contractions.Cat I FHT, reactive with accelsToco: 2-5 minsHeather Romina, PGY-1Obstetrics and GynecologyPager [phone]/7:34 AM Normal [facility] Type and Screenon 11-30-2017 ABO group Nom (Bld) A Normal [facility] Comment on above: Performed By: #### T &S #### [place] [address] Comment See Below [facility] Comment on above: Result Comment: Scre en &/or Xmatch expires in 3 days at 12 midnight. Redraw patient at that time. Performed By: #### T &S #### [place] [address] RH Type Positive Normal [facility] Comment on above: Performed By: #### T &S #### [place] [address] Progress Noteon 11-28-2017 Currency Exchange Specialist Authentication Interface Message Text Routine VisitSubjective: Zuleika Villalta is being seen today for her obstetrical visit. She is at [id number]. Patient reports no complaints. Movement: normal. She [...] [facility] Supervision of other high risk , antepartum 10/08/2017 PLAN OF CAREMD/OB APPOINTMENTSHow often should patient be evaluated? q 2 weeks from 32 to 36 weeks thenweekly until deliveryWork restrictions: noneFETAL EVALUATIONAntenatal surveillance: weekly BPPs starting at 32 weeks.Ultrasound: Serial growth ultrasounds every 4 weeks.DELIVERY PLANHospital: [facility] CenterInduction at 39 weeks; CYTOTEC IOL 12-02-17 at 5 pm at [facility]. Pre-Procedure formdone (CG)GBS culture: neg 11/07/17Contraception: [...] [facility] POC reviewedShe would like her follow up and contraception with Dr. Ivan.The total patient time of the visit was 15 minutes, of which greater than 50% ofthe time was spent counseling and coordinating care. Normal [facility] Progress Noteon 11-22-2017 Currency Exchange Specialist Authentication Interface Message Text [facility] plan of care faxed to [facility] in event pt would arrive for urgent management. Normal [facility] Progress Noteon 11-21-2017 Currency Exchange Specialist Authentication Interface Message Text Routine VisitSubjective: Zuleika Villalta is being seen today for her obstetrical visit. She is at 25w9kaeugfqqln. Patient reports that she went to Med [...] ultrasounds every 4 weeks.DELIVERY PLANHospital: [facility] CenterInduction at 39 weeks; CYTOTEC IOL 12-02-17 at 5 pm at [facility]. Pre-Procedure formdone (CG)GBS culture: neg 11/07/17Contraception: [...] IOL on12/02/17.Oksana amado MD Normal [facility] Progress Noteon 11-12-2017 Currency Exchange Specialist Authentication Interface Message Text Call from [facility] that pt presented there in labor. [facility] plan of care and ACOGs faxed by Toan Chen. Provided after hours MFM number provided. Normal [facility] Group B Strep Cultureon 10-16 Group B Strep Culture Group B Strep Cult ure: No Group B Streptococci isolated. Source: VAG Collected: 11/07/17 09:00 Site: Vaginal/Rectal Received : 11/07/17 22:01Group B Strep Culture FINAL 11/10/17 08:34 No Group B Streptococci isolated. Normal [facility] Comment on above: Performed By: #### G [facility] ####[address] [phone] Progress Noteon 11-07-2017 Currency Exchange Specialist Authentication Interface Message Text Routine VisitSubjective: Zuleika Villalta is being seen today for her obstetrical visit. She is at [id number]. Patient reports occasional nausea. No emesis. She [...] ultrasounds every 4 weeks.DELIVERY PLANHospital: [facility] CenterInduction at 39 weeksGBS culture: [...] and BPP.Oksana Amado MD Normal [facility] Progress Noteon 10-24-2017 Currency Exchange Specialist Authentication Interface Message Text Routine VisitSubjective: Zuleika [...] ultrasounds every 4 weeks.DELIVERY PLANHospital: [facility] CenterInduction at 39 weeksGBS culture:Contraception: [...] counseling and coordinating care.Marco Antonio Antonio, Normal [facility] Progress Noteon 10-15-2017 Currency Exchange Specialist Authentication Interface Message Text Ped selection made. Updated prenatals Normal [facility] Progress Noteon 10-08-2017 Currency Exchange Specialist Authentication Interface Message Text Thank you for [...] size. There was a patent foramen ovale, fexufyjna-nx-qlin shunt.Tricuspid valve:Normal tricuspid valve. There was normal [...] fetuses and in fetuses with CHD and [id number], the ratio being below 0.3 )Impression and recommendations.1) Abnormal 3-vessel view, ascending aorta was moderately dilated. 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 thymic thoracic ratio (TT-ratio)=0.1 ( TT-ratio 0.44 in normal fetuses and in fetuses with CHD and rwwzzoimqbmmt31f46, the ratio being below 0.3 )5) Normal [...] spent on the encounter. Normal [facility] Currency Exchange Specialist Authentication Interface Message Text Initial VisitSubjective: Zuleika [...] ultrasounds every 4 weeks.DELIVERY PLANHospital: [facility] CenterInduction at 39 weeksGBS culture:Contraception:TDAP [...] weeks for OB visit and BPP in [place].Oksana Amado MD Normal [facility] Cytogenomic Microarray Nivia sis of Bloodon 09-10-2017 Cytogenomic Microarray Analysis of Blood SEE BELOW Normal [facility] Comment on above: Result Comment: SPEC IMEN: BLOODCLINICAL INFORMATION: Learning disability[F81.9]TEST: CYTOGENOMIC MICROARRAY ANALYSISRESULT SUMMARY:Normal femaleNOMENCLATURE:arr(1-22,X)k3CQGBQQRQENQVUQ & COMMENTS:The cytogenomics microarray analysis indicated no [...] whole genome microarray analysis was performed the FDA-clearedGibberin(R) Dx platform, which contains approximately 2.7million markers, including 1,953,246 unique non-polymorphic copy numberprobes and 743,304 single nucleotide polymorphism (SNP) probes. Thegenome-wide functional resolution of this assay is approximately 25 kbfor deletions and 50 kb for duplications. This microarray andassociated software (Chromosome Analysis Suite Dx) were manufactured bySatomi and used by the Cytogenetics and Molecular DiagnosticsLaboratories of [facility] for the purpose ofidentifying DNA copy [...] further information regarding intendeduse and limitations, see [email or web address].Note: The Cytogenetics Laboratory has this patient's blood [...] additional testing. 09/19/2017 BIGG GARCIA, PH.D., DAB, [facility] 09/19/2017 Performed By: #### [facility] ####[facility] [place], [place] [phone] MRI (SINGLE)on 018 MRI (SINGLE) MRI (SINGLE)CL [...] CAMILO at 09/10/2017 10:21 Normal [facility] Progress Noteon 09-10-2017 Currency Exchange Specialist Authentication Interface Message Text The total patient time of the visit was 15 minutes, of which greater than 50% of the time was spent counseling and coordinating care. Normal [facility] Auto Diffon 09-03-2017 Basophils Auto #/vol (Bld) 0.1 E3/mcL Normal 0.0-0.2 [facility] Comment on above: Order Comment: Order Added by Discern Expert. Performed By: #### 2 [id number] ####[address] [place] [address] Basophils/100 WBC Auto (Bld) 0.5 % Normal 0.0-2.0 [facility] Comment on above: Order Comment: Order Added by Discern Expert. Performed By: #### 2 [id number] ####[address] [place] [address] Eos Absolute 0.0 E3/mcL Normal 0.0-0.7 [facility] Comment on above: Order Comment: Order Added by Discern Expert. Performed By: #### 2 [id number] ####[address]EN [address] [place] [address] Eosinophils/100 leukocytes 0.4 % Normal 0.0-11.0 [facility] Comment on above: Order Comment: Order Added by Discern Expert. Performed By: #### 2 [id number] ####[address] [place] [address] Lymphocytes 1.3 E3/mcL Normal 1.2-3.4 [facility] Comment on above: Order Comment: Order Added by Discern Expert. Performed By: #### 2 607425 ####[address]EN [address] [place] [address] Lymphocytes/100 leukocytes 13.1 % Low 20.0-55.0 [facility] Comment on above: Order Comment: Order Added by Discern Expert. Performed By: #### 2 [id number] ####KADEN [address] [place] [address] Mccracken Absolute 0.4 E3/mcL Normal 0.0-0.7 [facility] Comment on above: Order Comment: Order Added by Discern Expert. Performed By: #### 2 055473 ####[address]EN [address] [place] [address] Monocytes/100 leukocytes 4.3 % Normal 0.0-10.0 [facility] Comment on above: Order Comment: Order Added by Discern Expert. Performed By: #### 2 887239 ####[address]EN [address] [place] [address] Neutro Absolute 8.4 E3/mcL High 1.4-6.5 [facility] Comment on above: Order Comment: Order Added by Discern Expert. Performed By: #### 2 [id number] ####[address] [place] [address] Neutro Auto 81.7 % High 37.0-75.0 [facility] Comment on above: Order Comment: Order Added by Discern Expert. Performed By: #### 2 [id number] ####[address] [place] [address] CBC w/ Auto Diffon 8 Erythrocyte distribution width Auto Ratio (RBC) 13.1 % Normal 11.5-14.5 [facility] Comment on above: Performed By: #### 2 866349 ####[address] [place] [id number] Erythrocytes (RBC) 3.90 E6/mcL Normal 3.90-5.40 [facility] Comment on above: Performed By: #### 2 884962 ####[address] [place] [id number] Hematocrit (HCT) 34.7 % Low 36.0-48.0 [facility] Comment on above: Performed By: #### 2 435245 ####[address] [place] [address] Hemoglobin mass conc (Bld) 11.8 g/dL Low 12.0-16.0 [facility] Comment on above: Performed By: #### 2 368420 ####[address] [place] [address] MCH 30.3 pg Normal 27.0-31.0 [facility] Comment on above: Performed By: #### 2 810826 ####[address] [place] [address] MCHC mass conc (RBC) 34.2 g/dL Normal 33.0-37.0 [facility] Comment on above: Performed By: #### 2 179690 ####[address] [place] [address] MCV 88.8 fL Normal 78.0-100.0 [facility] Comment on above: Performed By: #### 2 551776 ####[address] [place] [id number] Platelet mean volume (PMV) 7.3 fL Low 7.4-11.0 [facility] Comment on above: Performed By: #### 2 749154 ####[address] [place] [address] Platelets 218 E3/mcL Normal 130-400 [facility] Comment on above: Performed By: #### 2 185466 ####[address] [place] [address] WBC (Leukocytes) 10.2 E3/mcL Normal 3.6-11.0 [facility] Comment on above: Performed By: #### 2 186160 ####[address] [place] [address] Gest Scr Glu 1 Hron 09-04-19 18 Glucose mass conc 113 mg/dL Normal 70-140 [facility] Comment on above: Performed By: #### 2 [id number] ####[address] [place] [address] FISH Probeon 08-13-2017 Protein mass conc SEE BELOW Normal [facility] Comment on above: Result Comment: SPEC IMEN: BLOOD - [id number] INFORMATION:TEST: FISH Analysis of the Di[place]/VCFS Region [...] Metaphase images: 2The Vysis LSI DARREN Spectrum [place] Probe contains the DARREN gene (3'non-coding region of TUPLE1, P64W431, and [id number]. The Vysis LSI ARSAspectrum Green Probe includes [...] determinedby the Cytogenetics Laboratory of [facility]. It hasnot been cleared or approved [...] laboratorytesting.REFERENCE: Rhonda NICOLE, Bindu E, Kristin M, [place] RV. Fluorescence in situhybridization detection of chromosome 22q11.2 microdeletions invelocardiofacial syndrome patients with widely variable manifestations. Am J Med Barbara 66:250-256,1996. BIGG GARCIA, PH.D., [facility], [facility] 08/16/2017 Performed By: #### F MARIA ####[address] [phone] Progress Noteon 08-13-2017 Currency Exchange Specialist Authentication Interface Message Text Met with patient [...] findingsWork History: unemployed. Information on [facility] services given.Consent to share information with [facility] team, OB and [place] signed. Pt plans to deliver [place] [facility] [place] [facility]. Currently with Dr. Shekhar Dyson.[employer] is undecided. [facility] list provided and discussed importance ofselection [...] counseling and coordinating care. Normal [facility] Currency Exchange Specialist Authentication Interface Message Text Thank you for [...] size. There was a patent foramen ovale, wejpwuspz-cu-mqvr shunt.Tricuspid valve:Normal tricuspid valve. There was normal [...] spent on the encounter. Normal [facility] Progress Noteon 07-18-2017 Currency Exchange Specialist Authentication Interface Message Text [facility] MAT[facility]NAL- MEDICINE CONSULTReferring/Requestin g Provider: Christian [...] no palpitations. She usually doesnot see a coil cleaner, but did have a recent echo due [...] Stroke Maternal Grandmother Heart Disease Maternal Grandmother PA Clotting Disorder Maternal Grandfather Miscarriages / Stillbirths [...] child 07/18/2017 Consider evaluation with social work coordinator to assess for any needs duringpregnancy or after. Will have genetic consult with [facility] evaluation. cardiac anomaly complicating , antepartum 07/18/2017 Dilated aortic root seen on ultrasound along with large umbilical cordvarix, dolichocephaly DW Dr. Zazueta, verbal order to refer to [facility] Will be scheduled with pediatric cardiology. Also, patient and family members have a history of learning disabilities,including an individual learning plan in school. She will talk to her familymembers and bring as much information as is available for her genetics consult.She has transportation to [place] and is willing to be seen there by [facility].The total patient time of the visit was 30 minutes, of which was greater than50% of the time was spent counseling and coordinating care. Normal [facility] IGP W/hpv Rfx [id number] 05-07 Diagnosis: See Ref Lab Report Normal [facility] Comment on above: Order Comment: Thin Prep. Performed By: #### 2 [id number] ####KADEN BairdXuqWbop7564 [place] [address] C Urineon 05-03-2017 C Urine Final Report: Normal skin alonso isolated Normal [facility] Comment on above: Performed By: #### 2 [id number] ####KADEN BairdOoxXmss9182 [place] [address] RPRon 05-03-2017 RPR Ql Non-Reactive Normal Non-Reacti ve [facility] Comment on above: Performed By: #### 2 975118 ####KADEN BairdFkqVzjg8757 [place] [address] Hep Bs Agon 05-02-2017 BSA (Body Surface Area) Negative Normal Negative [facility] Comment on above: Result Comment: Perf ormed At: CB [facility] Hamijs[address] [place], [place] [id number] Vincent PhD Ph:[phone] Performed By: #### 2 [id number] ####KADEN BairdDgjOccv7023 [place] [id number] ABO/Rh Echoon 05-01-2017 ABO/Rh E Interp... Positive Normal [facility] Comment on above: Performed By: #### 2 518186 ####KDAEN ZbgXutv9990 [place] [address] Antibody Screen Cap...on Screen Interp... Negative Normal [facility] Comment on above: Performed By: #### 2 [id number] ####KADEN PylJfwe9242 [place] [address] Auto Diffon 05-01-2017 Basophils Auto #/vol (Bld) 0.0 E3/mcL Normal 0.0-0.2 [facility] Comment on above: Order Comment: Order Added by Discern Expert. Performed By: #### 2 738106 ####KADEN Urinalysis Manual [address] [place] [address] Basophils/100 WBC Auto (Bld) 0.4 % Normal 0.0-2.0 [facility] Comment on above: Order Comment: Order Added by Discern Expert. Performed By: #### 2 440260 ####KADEN Urinalysis Manual [address] [place] [address] Eos Absolute 0.1 E3/mcL Normal 0.0-0.7 [facility] Comment on above: Order Comment: Order Added by Discern Expert. Performed By: #### 2 699604 ####KADEN Urinalysis Manual Qxkt[address] [place] [address] Eosinophils/100 leukocytes 0.7 % Normal 0.0-11.0 [facility] Comment on above: Order Comment: Order Added by Discern Expert. Performed By: #### 2 730959 ####KADEN Urinalysis Manual Wtmwhquusv[address] [place] [address]188 Lymphocytes 1.8 E3/mcL Normal 1.2-3.4 [facility] Comment on above: Order Comment: Order Added by Discern Expert. Performed By: #### 2 769588 ####KADEN Urinalysis Manual Crbrqkmyux4[address] [place] [address] 45188 Lymphocytes/100 leukocytes 17.1 % Low 20.0-55.0 [facility] Comment on above: Order Comment: Order Added by Discern Expert. Performed By: #### 2 776861 ####KADEN Urinalysis Manual Taqrgwmbky[address] [place] [address] Mccracken Absolute 0.5 E3/mcL Normal 0.0-0.7 [facility] Comment on above: Order Comment: Order Added by Discern Expert. Performed By: #### 2 702736 ####KADEN Urinalysis Manual Uywayacyec[address] [place] [address] Monocytes/100 leukocytes 5.0 % Normal 0.0-10.0 [facility] Comment on above: Order Comment: Order Added by Discern Expert. Performed By: #### 2 347085 ####KADEN Urinalysis Manual Fchzmzejud[address] [place] [address] Neutro Absolute 8.0 E3/mcL High 1.4-6.5 [facility] Comment on above: Order Comment: Order Added by Discern Expert. Performed By: #### 2 266885 ####KADEN Urinalysis [place] [address] Neutro Auto 76.8 % High 37.0-75.0 [facility] Comment on above: Order Comment: Order Added by Discern Expert. Performed By: #### 2 472111 ####KADEN Urinalysis Manual Iwtormrbao[address] [place] [address] CBC w/ Auto Diffon 7 Erythrocyte distribution width Auto Ratio (RBC) 15.2 % High 11.5-14.5 [facility] Comment on above: Performed By: #### 2 251095 ####KADEN Urinalysis Manual Nakdyzxhnb[address] [place] [address] Erythrocytes (RBC) 4.90 E6/mcL Normal 3.90-5.40 [facility] Comment on above: Performed By: #### 2 714382 ####KADEN Urinalysis Manual Trzprvkbbo[address] [place] [address] Hematocrit (HCT) 41.1 % Normal 36.0-48.0 [facility] Comment on above: Performed By: #### 2 854614 ####KADEN Urinalysis Manual Tswseshoky[address] [place] [address] Hemoglobin mass conc (Bld) 13.5 g/dL Normal 12.0-16.0 [facility] Comment on above: Performed By: #### 2 508107 ####KADEN Urinalysis Manual Ybcyjjufjm[address]64[address] [place] [address] MCH 27.5 pg Normal 27.0-31.0 [facility] Comment on above: Performed By: #### 2 939680 ####KADEN Urinalysis Manual Sbmgmnrguj[address] [place] [address] MCHC mass conc (RBC) 32.8 g/dL Low 33.0-37.0 [facility] Comment on above: Performed By: #### 2 855973 ####KADEN Urinalysis Manual Wpxfbfdiwg[address] [place] [address] MCV 83.9 fL Normal 78.0-100.0 [facility] Comment on above: Performed By: #### 2 918485 ####KADEN Urinalysis Manual Hgnqokxgnz[address] [place] [address] Platelet mean volume (PMV) 8.0 fL Normal 7.4-11.0 [facility] Comment on above: Performed By: #### 2 291620 ####KADEN Urinalysis Manual Dgrgsvatxr[address] [place] [address] Platelets 246 E3/mcL Normal 130-400 [facility] Comment on above: Performed By: #### 2 255103 ####KADEN Urinalysis Manual Mzauydywmn[address] [place], [place] [address] WBC (Leukocytes) 10.4 E3/mcL Normal 3.6-11.0 [facility] Comment on above: Performed By: #### 2 535711 ####KADEN Urinalysis Manual [address]jngawwzru[address] [place] [address] Chlamydia GC by PCRon 2016 Chlamydia by PCR. Not Detected Normal Not Detected [facility] Comment on above: Result Comment: Xper t CT/NG Assay performance has not been evaluated in patients less than 14 years of age. Performed By: #### 2 374658 ####KADEN BairdFlmYlvt3820 [place] [id number] Gonorrhoeae by PCR Not Detected Normal Not Detected [facility] Comment on above: Result Comment: Xper t CT/NG Assay performance has not been evaluated in patients less than 14 years of age. Performed By: #### 2 548780 ####KADEN BairdOziQdzz5169 [place] [address] HIV-1/2 Ag/Abon 05-01-2017 HIV-1/2 Ag/Ab Non-Reactive Normal Non-Reacti ve [facility] Comment on above: Performed By: #### 2 570841 ####KADEN Urinalysis Manual [address]qclw[address] [place] [address]36 Rubella IgG Lvlon 05-01-2017 Rubella IgG Lvl 50.8 (POS) Normal [facility] Comment on above: Result Comment: <10I U/ml NON REACTIVE: NOT WBONTB03-06 IU/ml RUBELLA SPECIFIC AB PRESENT, EVALUATEFURTHER TO DETERMINE IMMUNE STATUS >15 IU/ml REACTIVE, IMMUNE Performed By: #### 2 683602 ####KADEN KgyHvma3283 [place] [id number] Auto Diffon 04-22-2017 Basophils Auto #/vol (Bld) 0.1 E3/mcL Normal 0.0-0.2 [facility] Comment on above: Order Comment: Order Added by Discern Expert. Performed By: #### 2 249485 ####KADEN Urinalysis Manual Vdpsqtgply[address] [place] [address] Basophils/100 WBC Auto (Bld) 0.6 % Normal 0.0-2.0 [facility] Comment on above: Order Comment: Order Added by Discern Expert. Performed By: #### 2 411621 ####KADEN Urinalysis Manual Kdvompnpaj[address] [place] [address] 21422 Eos Absolute 0.0 E3/mcL Normal 0.0-0.7 [facility] Comment on above: Order Comment: Order Added by Discern Expert. Performed By: #### 2 635189 ####KADEN Urinalysis Manual Rhsgxudraz[address] [place] [address] 88427 Eosinophils/100 leukocytes 0.2 % Normal 0.0-11.0 [facility] Comment on above: Order Comment: Order Added by Discern Expert. Performed By: #### 2 058155 ####KADEN Urinalysis Manual [address]mdcqzxkmm[address] [place] [address] 12005 Lymphocytes 1.5 E3/mcL Normal 1.2-3.4 [facility] Comment on above: Order Comment: Order Added by Discern Expert. Performed By: #### 2 815826 ####KADEN Urinalysis Manual Gltkvsmnnb[address] [place] [address] 27388 Lymphocytes/100 leukocytes 10.8 % Low 20.0-55.0 [facility] Comment on above: Order Comment: Order Added by Discern Expert. Performed By: #### 2 614890 ####KADEN Urinalysis Manual Wedxmdmdom[address] [place] [address] Mccracken Absolute 0.6 E3/mcL Normal 0.0-0.7 [facility] Comment on above: Order Comment: Order Added by Discern Expert. Performed By: #### 2 439471 ####KADEN Urinalysis Manual Augawzyzya[address] [place] [address] Monocytes/100 leukocytes 4.4 % Normal 0.0-10.0 [facility] Comment on above: Order Comment: Order Added by Discern Expert. Performed By: #### 2 973773 ####KADEN Urinalysis Manual Feofjivhgn[address] [place] [address] Neutro Absolute 11.3 E3/mcL High 1.4-6.5 [facility] Comment on above: Order Comment: Order Added by Discern Expert. Performed By: #### 2 537397 ####KADEN Urinalysis [place] [address] Neutro Auto 84.0 % High 37.0-75.0 [facility] Comment on above: Order Comment: Order Added by Discern Expert. Performed By: #### 2 658230 ####KADEN Urinalysis Manual Gxdvjymmkk[address] [place] [address] BMPon 04-22-2017 BUN/Creatinine Ratio Unable to calc Normal 5.4-30.0 [facility] Comment on above: Performed By: #### 2 629717 ####KADEN Urinalysis Manual Rzddqzppgd[address] [place] [address] Creatinine mg/dL Low 0.6-1.3 [facility] Comment on above: Performed By: #### 2 802109 ####KADEN Urinalysis Manual Xpixpcoiec[address] [place] [address] Urea nitrogen 7 mg/dL Normal 7-18 [facility] Comment on above: Performed By: #### 2 062527 ####KADEN Urinalysis Manual Mgjxagovtv0126 [place] [address] Calcium 9.6 mg/dL Normal 8.4-10.2 [facility] Comment on above: Performed By: #### 2 089305 ####KADEN Urinalysis Manual Ercmvmigjt5565 [place] [address] Chloride 103 mmol/L Normal 98-107 [facility] Comment on above: Performed By: #### 2 434550 ####KADEN Urinalysis Manual Zhagpypznv26[address] [place] [address] CO2 21.7 mmol/L Low 24.0-30.0 [facility] Comment on above: Performed By: #### 2 000100 ####KADEN Urinalysis Manual Einmjsoipr[address] [place] [address] Glucose mass conc 89 mg/dL Normal 70-99 [facility] Comment on above: Performed By: #### 2 768579 ####KADEN Urinalysis Manual Xnebweoewx46[address] [place] [address] Potassium molar conc 3.6 mmol/L Normal 3.5-5.1 [facility] Comment on above: Performed By: #### 2 625845 ####KADEN Urinalysis Manual Xunhnjahkk[address] [place] [address] Sodium 136 mmol/L Normal 136-145 [facility] Comment on above: Performed By: #### 2 989306 ####KADEN Urinalysis Manual Giegpsnbgw[address] [place], [place] [address] CBC w/ Auto Diffon 7 Erythrocyte distribution width Auto Ratio (RBC) 14.8 % High 11.5-14.5 [facility] Comment on above: Performed By: #### 2 660673 ####KADEN Urinalysis Manual Ilenrxrtfx2445 [place] [id number] Erythrocytes (RBC) 4.96 E6/mcL Normal 3.90-5.40 [facility] Comment on above: Performed By: #### 2 699868 ####KADEN Urinalysis Manual Wjgfdabrzg1285 [place] [address] Hematocrit (HCT) 40.9 % Normal 36.0-48.0 [facility] Comment on above: Performed By: #### 2 413252 ####KADEN Urinalysis Manual Axtczqmrea[address] [place] [address] Hemoglobin mass conc (Bld) 13.5 g/dL Normal 12.0-16.0 [facility] Comment on above: Performed By: #### 2 569218 ####KADEN Urinalysis Manual Wyloncimsl[address] [place] [address] MCH 27.2 pg Normal 27.0-31.0 [facility] Comment on above: Performed By: #### 2 887761 ####KADEN Urinalysis Manual Cescvobpob[address] [place] [address] MCHC mass conc (RBC) 33.0 g/dL Normal 33.0-37.0 [facility] Comment on above: Performed By: #### 2 241671 ####KADEN Urinalysis Manual Pryugqptiv[address] [place] [address] MCV 82.4 fL Normal 78.0-100.0 [facility] Comment on above: Performed By: #### 2 147727 ####KADEN Urinalysis Manual Bpzxefssux[address] [place] [address] Platelet mean volume (PMV) 8.0 fL Normal 7.4-11.0 [facility] Comment on above: Performed By: #### 2 744579 ####KADEN Urinalysis Manual Hwdwxhoofn[address] [place] [address] Platelets 237 E3/mcL Normal 130-400 [facility] Comment on above: Performed By: #### 2 437277 ####KADEN Urinalysis Manual Jhokazupns[address] [place] [address] WBC (Leukocytes) 13.5 E3/mcL High 3.6-11.0 [facility] Comment on above: Performed By: #### 2 909154 ####KADEN Urinalysis Manual Wrkbnrueri[address] [place] [address] UA Completeon 04-22-2017 UA Blood Negative Normal Negative [facility] Comment on above: Performed By: #### 2 196217 ####KADEN Urinalysis Manual Etswnmfwhg6073 [place] [address] UA Ascorbic Acid 40 mg/dL High <=19 [facility] Comment on above: Performed By: #### 2 984715 ####KADEN Urinalysis Manual Rvkaxgmtbv[address] [place] [address] UA Bacteria 3+ /HPF Abnormal None [facility] Comment on above: Performed By: #### 2 357820 ####KDAEN Urinalysis Manual Orotkuokho66[address] [place] [address] UA Clarity SltCloudy Abnormal Clear [facility] Comment on above: Performed By: #### 2 620137 ####KADEN Urinalysis Manual Jczpeixrug[address] [place] [address] UA Leuk Est Negative Normal Negative [facility] Comment on above: Performed By: #### 2 011628 ####KADEN Urinalysis Manual Hycxkydxdv09[address] [place] [address] UA Mucous Few Abnormal Trace [facility] Comment on above: Performed By: #### 2 250357 ####KADEN Urinalysis Manual [address]ajfzudsws[address] [place] [address] UA Nitrite Negative Normal Negative [facility] Comment on above: Performed By: #### 2 474160 ####KADEN Urinalysis Manual Bizxhzykpf[address] [place] [address] UA pH 8.0 Normal 4.6-8.0 [facility] Comment on above: Performed By: #### 2 126244 ####KADEN Urinalysis Manual Szkdaudktc4[address] [place] [address] UA Protein Negative Normal Negative [facility] Comment on above: Performed By: #### 2 660172 ####KADEN Urinalysis Manual Jdftuykcqc[address] [place] [address] UA Spec Grav 1.012 Normal 1.003-1.03 0 [facility] Comment on above: Performed By: #### 2 542923 ####KADEN Urinalysis Manual Dasjrosljt1508 [place] [address] UA Squam Epithelial 0-5 Normal 0-5 [facility] Comment on above: Performed By: #### 2 388491 ####KADEN Urinalysis Manual Tjdzwehxpd5117 [place] [address] UA Urobilinogen Negative Normal [facility] Comment on above: Performed By: #### 2 270764 ####KADEN Urinalysis Manual Dqjlrsydhz8816 [place] [address] UA WBC 0-5 Normal 0-5 [facility] Comment on above: Performed By: #### 2 217796 ####KADEN Urinalysis Manual Nmrcrkqbih4789 [place] [address] Urine, color Yellow Normal Yellow [facility] Comment on above: Performed By: #### 2 843935 ####KADEN Urinalysis Manual Rerokqqntn[address] [place] [address] 28659 Urine, glucose Negative Normal Negative [facility] Comment on above: Performed By: #### 2 757020 ####KADEN Urinalysis Manual Vzhaaseowu[address] [place] [address] Urine, ketones presence 1+ Abnormal Negative [facility] Comment on above: Performed By: #### 2 799278 ####KADEN Urinalysis Manual Zcftluipmj[address] [place] [address] Urine, urobilinogen Negative Normal Negative [facility] Comment on above: Performed By: #### 2 274511 ####KADEN Urinalysis Manual Ayputfbpfs[address] [place] [address] 81687 eGFRon 04-22-2017 eGFR AA >60 Normal [facility] Comment on above: Order Comment: Order added by Discern Expert. Performed By: #### 2 043110 ####KADEN Urinalysis Manual Rtveryapcy7473 [place] [address] eGFR (non-black) mL/min/{1.73_m2} Normal [facility] Comment on above: Order Comment: Order added by Discern Expert. Performed By: #### 2 692470 ####KADEN Urinalysis Manual Jyilkvmcpa3951 [place] [address] C Urineon 04-20-2017 C Urine Final Report: Normal skin alonso isolated Normal [facility] Comment on above: Performed By: #### 2 383767 ####KADEN Urinalysis Manual Wggkvkmbdm2998 [place] [address] BMPon 04-18-2017 BUN/Creatinine Ratio 15.0 ratio Normal 5.4-30.0 [facility] Comment on above: Performed By: #### 2 623237 ####KADENMorelia BairdMwbLkcz5940 [place] [address] Creatinine 0.6 mg/dL Normal 0.6-1.3 [facility] Comment on above: Performed By: #### 2 383815 ####KADEN DtfNrby2123 [place] [address] Urea nitrogen 9 mg/dL Normal 7-18 [facility] Comment on above: Performed By: #### 2 888802 ####KADEN BairdUuqGakk5688 [place] [address] Calcium 9.6 mg/dL Normal 8.4-10.2 [facility] Comment on above: Performed By: #### 2 347297 ####KADENMorelia BairdQvuKruj0341 [place] [address] Chloride 102 mmol/L Normal 98-107 [facility] Comment on above: Performed By: #### 2 015747 ####KADEN ImcHyjx2206 [place] [address] CO2 23.3 mmol/L Low 24.0-30.0 [facility] Comment on above: Performed By: #### 2 899052 ####KADENMorelia BairdJbuIsyr0858 [place] [address] Glucose mass conc 93 mg/dL Normal 70-99 [facility] Comment on above: Performed By: #### 2 011970 ####KADENMorelia BairdBizPmdy6083 [place] [address] Potassium molar conc 3.5 mmol/L Normal 3.5-5.1 [facility] Comment on above: Performed By: #### 2 006404 ####KADENMorelia BairdNhgZvgh9707 [place] [address] Sodium 136 mmol/L Normal 136-145 [facility] Comment on above: Performed By: #### 2 128929 ####KADEN WiyKhwe5271 [place] [address] UA Completeon 04-18-2017 UA Blood Negative Normal Negative [facility] Comment on above: Performed By: #### 2 422098 ####KADEN Urinalysis Manual [address]yvdktl[address] [place] [address] UA Amorph Chastity 2+ /HPF Abnormal None [facility] Comment on above: Performed By: #### 2 490270 ####KADEN Urinalysis Manual Ifomcdkeni15[address] [place] [address] UA Ascorbic Acid 40 mg/dL High <=19 [facility] Comment on above: Performed By: #### 2 310675 ####KADEN Urinalysis Manual Ytmevkncfo[address] [place] [address] UA Clarity Cloudy Abnormal Clear [facility] Comment on above: Performed By: #### 2 165871 ####KADEN Urinalysis Manual Dnhruaqdno92[address] [place] [address] UA Leuk Est Negative Normal Negative [facility] Comment on above: Performed By: #### 2 146828 ####KADEN Urinalysis Manual Tfzmwmfoap87[address] [place] [address] UA Mucous Trace Abnormal Trace [facility] Comment on above: Performed By: #### 2 889988 ####KADEN Urinalysis Manual Razqpofbxo[address] [place] [address] UA Nitrite Negative Normal Negative [facility] Comment on above: Performed By: #### 2 045508 ####KADEN Urinalysis Manual Gyozidgdpy[address] [place] [address] UA pH 7.0 Normal 4.6-8.0 [facility] Comment on above: Performed By: #### 2 239337 ####KADEN Urinalysis Manual Ftsaiyxmtx[address] [place] [address] UA Protein Negative Normal Negative [facility] Comment on above: Performed By: #### 2 690494 ####KADEN Urinalysis Manual Bvyxzymmck[address] [place] [address] UA Spec Grav 1.018 Normal 1.003-1.03 0 [facility] Comment on above: Performed By: #### 2 733975 ####KADEN Urinalysis Manual Ybzcklbfbk2454 [place] [address] UA Squam Epithelial 0-5 Normal 0-5 [facility] Comment on above: Performed By: #### 2 008186 ####KADEN Urinalysis Manual Emsglthqsi8823 [place] [address] UA Urobilinogen Negative Normal [facility] Comment on above: Performed By: #### 2 982313 ####KADEN Urinalysis Manual Rnzprukcxx[address] [place] [address] Urine, color Yellow Normal Yellow [facility] Comment on above: Performed By: #### 2 657297 ####KADEN Urinalysis Manual Yskxuvbshj65[address] [place] [address] Urine, glucose Negative Normal Negative [facility] Comment on above: Performed By: #### 2 992002 ####KADEN Urinalysis Manual Btpouslphu6[address] [place] [address] Urine, ketones presence 2+ Abnormal Negative [facility] Comment on above: Performed By: #### 2 [id number] ####KADEN Urinalysis Manual [id number] [place] [address] Urine, urobilinogen Negative Normal Negative [facility] Comment on above: Performed By: #### 2 [id number] ####KADEN Urinalysis Manual [address] [place] [address] eGFRon 04-18-2017 eGFR (non-black) mL/min/{1.73_m2} Normal [facility] Comment on above: Order Comment: Order added by Discern Expert. Performed By: #### 1 [id number] ####KADEN RbbIorm9864 [place] [address] eGFR AA >60 Normal [facility] Comment on above: Order Comment: Order added by Discern Expert. Performed By: #### 1 [id number] ####KADEN LwnRhfl8866 [place] [address] Auto Diffon 04-11-2017 Basophils Auto #/vol (Bld) 0.1 E3/mcL Normal 0.0-0.2 [facility] Comment on above: Order Comment: Order Added by Discern Expert. Performed By: #### 2 [id number] ####KADEN BairdZgcXpju5612 [place] [address] Basophils/100 WBC Auto (Bld) 0.7 % Normal 0.0-2.0 [facility] Comment on above: Order Comment: Order Added by Discern Expert. Performed By: #### 2 [id number] ####KADEN BairdMgkLwer0157 [place] [address] Eos Absolute 0.0 E3/mcL Normal 0.0-0.7 [facility] Comment on above: Order Comment: Order Added by Discern Expert. Performed By: #### 2 [id number] ####KADEN BairdWroLael5969 [place] [address] Eosinophils/100 leukocytes 0.1 % Normal 0.0-11.0 [facility] Comment on above: Order Comment: Order Added by Discern Expert. Performed By: #### 2 [id number] ####KADEN BairdLyiYqzv2780 [place] [address] Lymphocytes 1.5 E3/mcL Normal 1.2-3.4 [facility] Comment on above: Order Comment: Order Added by Discern Expert. Performed By: #### 2 [id number] ####KADEN BairdNkhZlai1689 [place] [address] Lymphocytes/100 leukocytes 17.2 % Low 20.0-55.0 [facility] Comment on above: Order Comment: Order Added by Discern Expert. Performed By: #### 2 [id number] ####KADEN BairdZhfFdoo7138 [place] [address] Mccracken Absolute 0.6 E3/mcL Normal 0.0-0.7 [facility] Comment on above: Order Comment: Order Added by Discern Expert. Performed By: #### 2 [id number] ####KADEN BairdDhzEkoo1073 [place] [address] Monocytes/100 leukocytes 6.6 % Normal 0.0-10.0 [facility] Comment on above: Order Comment: Order Added by Discern Expert. Performed By: #### 2 [id number] ####KADEN KplQhzp0601 [place] [address] Neutro Absolute 6.7 E3/mcL High 1.4-6.5 [facility] Comment on above: Order Comment: Order Added by Discern Expert. Performed By: #### 2 [id number] ####KADEN Luceroo1025 [place] [address] Neutro Auto 75.4 % High 37.0-75.0 [facility] Comment on above: Order Comment: Order Added by Discern Expert. Performed By: #### 2 [id number] ####KADEN [address]o1025 [place] [address] BMPon 04-11-2017 BUN/Creatinine Ratio 12.9 ratio Normal 5.4-30.0 [facility] Comment on above: Performed By: #### 2 [id number] ####KADEN WthOmee0332 [place] [address] Creatinine 0.7 mg/dL Normal 0.6-1.3 [facility] Comment on above: Performed By: #### 2 [id number] ####KADENMorelia BaiRaqTlnj8875 [place] [address] Urea nitrogen 9 mg/dL Normal 7-18 [facility] Comment on above: Performed By: #### 2 [id number] ####KADEN QfeSpny5992 [place] [address] Calcium 9.5 mg/dL Normal 8.4-10.2 [facility] Comment on above: Performed By: #### 2 [id number] ####KADENMorelia BaiKqcYllx5582 [place] [address] Chloride 105 mmol/L Normal 98-107 [facility] Comment on above: Performed By: #### 2 [id number] ####KADENMorelia BairdWlnKvve3804 [place] [address] CO2 22.5 mmol/L Low 24.0-30.0 [facility] Comment on above: Performed By: #### 2 [id number] ####KADENMorelia BairdGezUvnf1783 [place] [address] Glucose mass conc 92 mg/dL Normal 70-99 [facility] Comment on above: Performed By: #### 2 [id number] ####KADENMorelia BaiTgqGlpv8177 [place] [address] Potassium molar conc 3.6 mmol/L Normal 3.5-5.1 [facility] Comment on above: Performed By: #### 2 [id number] ####KADENMorelia BairdRxpOrwe0925 [place] [address] Sodium 137 mmol/L Normal 136-145 [facility] Comment on above: Performed By: #### 2 [id number] ####KADENMorelia BairdCvkSvpc2260 [place] [address] BhCG Quanton 04-11-2017 Beta hCG Qnt 8564.0 mIU/m Normal [facility] Comment on above: Result Comment: FEMA LE (NON-) & MALE <3 BORDERLINE 3 - 5 SUGGEST REPEAT TESTING FEMALE () 1 D - 1 WK 5 - 50 1 - 2 WK 50 - 500 2 - 3 WK 100 - 5000 3 - 4 WK 500 - 74228 4 - 5 WK 1000 - 13295 5 - 6 WK 75331 - 891845 6 - 8 WK 75233 - 019644 2 - 3 [place] [address] - 388939 Performed By: #### 2 [id number] ####KADENMorelia BairdRuqOplr5075 [place] [address] CBC w/ Auto Diffon 7 Erythrocyte distribution width Auto Ratio (RBC) 13.9 % Normal 11.5-14.5 [facility] Comment on above: Performed By: #### 2 [id number] ####KADENMorelia LuceroTrcCugn8308 [place] [address] Erythrocytes (RBC) 4.63 E6/mcL Normal 3.90-5.40 [facility] Comment on above: Performed By: #### 2 600203 ####KADENMorelia BairdNwhKuqh0965 [place] [address] Hematocrit (HCT) 38.2 % Normal 36.0-48.0 [facility] Comment on above: Performed By: #### 2 [id number] ####KADEN BairdWraHxbq5487 [place] [address] Hemoglobin mass conc (Bld) 12.6 g/dL Normal 12.0-16.0 [facility] Comment on above: Performed By: #### 2 062196 ####KADENMorelia LuceroUdtNbfl5298 [place] [address] MCH 27.2 pg Normal 27.0-31.0 [facility] Comment on above: Performed By: #### 2 693130 ####KADEN Luceroo1025 [place] [address] MCHC mass conc (RBC) 33.0 g/dL Normal 33.0-37.0 [facility] Comment on above: Performed By: #### 2 510410 ####KADEN Luc[address]o1025 [place] [address] MCV 82.6 fL Normal 78.0-100.0 [facility] Comment on above: Performed By: #### 2 [id number] ####KADEN [address]o10[address] [place] [id number] Platelet mean volume (PMV) 8.0 fL Normal 7.4-11.0 [facility] Comment on above: Performed By: #### 2 [id number] ####KADEN Luc[address]o10[address] [place] [id number] Platelets 233 E3/mcL Normal 130-400 [facility] Comment on above: Performed By: #### 2 566893 ####KADEN Luceroo1025 [place] [address] WBC (Leukocytes) 9.0 E3/mcL Normal 3.6-11.0 [facility] Comment on above: Performed By: #### 2 [id number] ####KADEN [address]o10[address] [place] [id number] UA Completeon 04-11-2017 UA Blood Negative Normal Negative [facility] Comment on above: Result Comment: High concentration of Ascorbic Acid present in urine. This may cause False Negative Occ Blood. Review microscopic results and patient's clinical symptoms. Performed By: #### 8 [id number] ####KADEN Urinalysis Automated Ixzmmlxmyw0227 [place] [address] UA Amorph Chastity 1+ /HPF Abnormal None [facility] Comment on above: Performed By: #### 8 [id number] ####KADEN Urinalysis Automated Tglavnmupi4311 [place] [address] UA Ascorbic Acid 40 mg/dL High <=19 [facility] Comment on above: Performed By: #### 8 [id number] ####KADEN Urinalysis Automated Chjcqhjdih6452 [place] [address] UA Bacteria Trace Abnormal None [facility] Comment on above: Performed By: #### 8 [id number] ####KADEN Urinalysis Automated Wqxdcyscpl7896 [place] [address] UA Clarity Cloudy Abnormal Clear [facility] Comment on above: Performed By: #### 8 [id number] ####KADEN Urinalysis Automated [address] [place] [address] UA Leuk Est Negative Normal Negative [facility] Comment on above: Performed By: #### 8 [id number] ####KADEN Urinalysis Automated [address] [place] [address] UA Mucous Few Abnormal Trace [facility] Comment on above: Performed By: #### 8 [id number] ####KADEN Urinalysis Automated Ey[address]bppm[address] [place] [address] UA Nitrite Negative Normal Negative [facility] Comment on above: Performed By: #### 8 [id number] ####KADEN Urinalysis Automated [address] [place] [address] UA pH 7.0 Normal 4.6-8.0 [facility] Comment on above: Performed By: #### 8 [id number] ####KADEN Urinalysis Automated [address] [place] [address] UA Protein Negative Normal Negative [facility] Comment on above: Performed By: #### 8 [id number] ####KADEN Urinalysis Automated Fylqhbamxp8668 [place] [id number] UA Spec Grav 1.025 Normal 1.003-1.03 0 [facility] Comment on above: Performed By: #### 8 [id number] ####KADEN Urinalysis Automated [address] [place], [place] [address] UA Squam Epithelial 5-10 Abnormal 0-5 [facility] Comment on above: Performed By: #### 8 [id number] ####KADEN Urinalysis Automated [address]qu[address] [place] [address] UA Urobilinogen 2.0 mg/dL Abnormal [facility] Comment on above: Performed By: #### 8 [id number] ####KADEN Urinalysis Automated Qxpkbshkkw9836 [place] [address] Urine, color Yellow Normal Yellow [facility] Comment on above: Performed By: #### 8 [id number] ####KADEN Urinalysis Automated Zeoayldumi7595 [place] [address] Urine, erythrocytes 0-3 Normal 0-3 [facility] Comment on above: Performed By: #### 8 [id number] ####KADEN Urinalysis Automated Pfqvjabvai6763 [place] [address] Urine, glucose Negative Normal Negative [facility] Comment on above: Performed By: #### 8 [id number] ####KADEN Urinalysis Automated [address] [place] [address] Urine, ketones presence 2+ Abnormal Negative [facility] Comment on above: Performed By: #### 8 [id number] ####KADEN Urinalysis Automated [address] [place] [address] Urine, urobilinogen Negative Normal Negative [facility] Comment on above: Performed By: #### 8 [id number] ####KADEN Urinalysis Automated Bktxsxcspy6346 [place] [address] eGFRon 04-11-2017 eGFR (non-black) mL/min/{1.73_m2} Normal [facility] Comment on above: Order Comment: Order added by Discern Expert. Performed By: #### 1 [id number] ####KADEN IqdFxjp6365 [place] [address] eGFR AA >60 Normal [facility] Comment on above: Order Comment: Order added by Discern Expert. Performed By: #### 1 [id number] ####KADEN QosSfxk2227 [place] [address] U BhCG Qlton 03-20-2017 HCG.beta subunit Qn Negative Normal Neg [facility] Comment on above: Performed By: #### 2 [id number] ####KADEN Urinalysis Manual Hqehvupaax5887 [place] [id number] UA Completeon 03-20-2017 UA Blood Negative Normal Negative [facility] Comment on above: Performed By: #### 8 [id number] ####KADEN Urinalysis Automated Wgtawewpky0458 [place] [address] UA Amorph Chastity 1+ /HPF Abnormal None [facility] Comment on above: Performed By: #### 8 [id number] ####KADEN Urinalysis Automated Qxgqketmel9847 [place] [address] UA Bacteria 2+ /HPF Abnormal None [facility] Comment on above: Performed By: #### 8 [id number] ####KADEN Urinalysis Automated [address] [place] [address] UA Clarity Cloudy Abnormal Clear [facility] Comment on above: Performed By: #### 8 [id number] ####KADEN Urinalysis Automated [address] [place] [address] UA Leuk Est 1+ Abnormal Negative [facility] Comment on above: Performed By: #### 8 [id number] ####KADEN Urinalysis Automated [address]vjcfpae[address] [place] [address] UA Mucous Occasional Abnormal Trace [facility] Comment on above: Performed By: #### 8 [id number] ####KADEN Urinalysis Automated [address] [place] [address] UA Nitrite Negative Normal Negative [facility] Comment on above: Performed By: #### 8 [id number] ####KADEN Urinalysis Automated [address] [place] [address] UA pH 6.0 Normal 4.6-8.0 [facility] Comment on above: Performed By: #### 8 [id number] ####KADEN Urinalysis Automated [address] [place] [address] UA Protein 1+ Abnormal Negative [facility] Comment on above: Performed By: #### 8 [id number] ####KADEN Urinalysis Automated [address] [place] [address] UA Spec Grav 1.019 Normal 1.003-1.03 0 [facility] Comment on above: Performed By: #### 8 [id number] ####KADEN Urinalysis Automated [address] [place] [address] UA Squam Epithelial 5-10 Abnormal 0-5 [facility] Comment on above: Performed By: #### 8 [id number] ####KADEN Urinalysis Automated Utqwabvbyh2745 [place] [address] UA Urobilinogen Negative Normal [facility] Comment on above: Performed By: #### 8 [id number] ####KADEN Urinalysis Automated Bpfrzvnsor1331 [place] [address] UA WBC >50 Abnormal 0-5 [facility] Comment on above: Performed By: #### 8 [id number] ####KADEN Urinalysis Automated Latdupcgdq1443 [place] [address] Urine, color Yellow Normal Yellow [facility] Comment on above: Performed By: #### 8 [id number] ####KADEN Urinalysis Automated Nddrdnfjtz8499 [place] [address] Urine, erythrocytes 5-10 Abnormal 0-3 [facility] Comment on above: Performed By: #### 8 [id number] ####KADEN Urinalysis Automated Dcboirlqdw6552 [place] [address] Urine, glucose Negative Normal Negative [facility] Comment on above: Performed By: #### 8 [id number] ####KADEN Urinalysis Automated Ipalwxxegs4220 [place] [address] Urine, ketones presence Negative Normal Negative [facility] Comment on above: Performed By: #### 8 [id number] ####KADEN Urinalysis Automated Hpbjmnindn9472 [place] [address] Urine, urobilinogen Negative Normal Negative [facility] Comment on above: Performed By: #### 8 [id number] ####KADEN Urinalysis Automated Yfxycbbyoc8867 [place] [address] Vital Signs Date Time Vital Sign Value Performing Clinician Facility 07-18-2023 10:30-0500 Body mass index (BMI) [Ratio] 26.7 kg/m2 [facility] [employer] Work Phone: [facility] 07-18-2023 10:30-0500 Body weight 75.03 kg [facility] Diana DO Work Phone: [facility] 07-18-2023 10:30-0500 Diastolic blood pressure 68 mm[Hg] Cuong Diana DO Work Phone: [facility] 07-18-2023 10:30-0500 Systolic blood pressure 106 mm[Hg] Cuong Diana DO Work Phone: [facility] 02-11-2023 14:13-0400 Body height 165.1 cm PA-Ventura Wyatt Work Phone: [facility] 02-11-2023 14:13-0400 Body temperature 97.9 [degF] PA-C Andie Wyatt Work Phone: [facility] 02-11-2023 14:13-0400 Body weight 70.55 kg FERMIN-Ventura Wyatt Work Phone: [facility] 02-11-2023 14:13-0400 Diastolic blood pressure 80 mm[Hg] PA-Ventura Wyatt Work Phone: [facility] 02-11-2023 14:13-0400 Heart rate 60 /min FERMIN-Ventura Wyatt Work Phone: [facility] 02-11-2023 14:13-0400 Respiratory rate 15 /min FERMIN-Ventura Wyatt Work Phone: [facility] 02-11-2023 14:13-0400 SaO2% (BldA) [Mass fraction] 99 % SADAF Wyatt Work Phone: [facility] 02-11-2023 14:13-0400 Systolic blood pressure 134 mm[Hg] FERMIN-Ventura Wyatt Work Phone: [facility] 02-08-2023 12:36-0400 Body height 165.1 cm PA-Ventura Wyatt Work Phone: [facility] 02-08-2023 12:36-0400 Body temperature 98.2 [degF] FERMIN-Ventura Wyatt Work Phone: [facility] 02-08-2023 12:36-0400 Body weight 72.57 kg SADAF Wyatt Work Phone: [facility] 02-08-2023 12:36-0400 Diastolic blood pressure 84 mm[Hg] PA-C Andie Wyatt Work Phone: [facility] 02-08-2023 12:36-0400 Heart rate 74 /min PA-Ventura Wyatt Work Phone: [facility] 02-08-2023 12:36-0400 Respiratory rate 15 /min PA-Ventura Wyatt Work Phone: [facility] 02-08-2023 12:36-0400 SaO2% (BldA) [Mass fraction] 98 % PA-C Andie Wyatt Work Phone: [facility] 02-08-2023 12:36-0400 Systolic blood pressure 150 mm[Hg] PA-Ventura Wyatt Work Phone: [facility] 12-19-2022 14:43-0400 Body temperature 96.9 [degF] FERMIN-Ventura Wyatt Work Phone: [facility] 12-19-2022 14:43-0400 Diastolic blood pressure 74 mm[Hg] PA-Ventura Wyatt Work Phone: [facility] 12-19-2022 14:43-0400 Heart rate 59 /min SADAF Wyatt Work Phone: [facility] 12-19-2022 14:43-0400 Respiratory rate 18 /min SADAF Wyatt Work Phone: [facility] 12-19-2022 14:43-0400 SaO2% (BldA) [Mass fraction] 100 % PA-Ventura Wyatt Work Phone: [facility] 12-19-2022 14:43-0400 Systolic blood pressure 115 mm[Hg] PA-Ventura Wyatt Work Phone: [facility] 12-19-2022 14:00-0400 Diastolic blood pressure 89 mm[Hg] PA-Ventura Wyatt Work Phone: [facility] 12-19-2022 14:00-0400 Heart rate 79 /min PA-C Andie Wyatt Work Phone: [facility] 12-19-2022 14:00-0400 Respiratory rate 16 /min PA-Ventura Wyatt Work Phone: [facility] 12-19-2022 14:00-0400 SaO2% (BldA) [Mass fraction] 99 % PA-Ventura Wyatt Work Phone: [facility] 12-19-2022 14:00-0400 Systolic blood pressure 150 mm[Hg] PA-C Andie Wyatt Work Phone: [facility] 12-19-2022 03:30-0400 Body height 165.1 cm PA-Ventura Wyatt Work Phone: [facility] 12-19-2022 03:30-0400 Body weight 72.2 kg SADAF Wyatt Work Phone: [facility] 12-18-2022 23:07-0400 Body height 165.1 cm PA-Ventura Wyatt Work Phone: [facility] 12-18-2022 23:07-0400 Body weight 74.2 kg PAZhao Wyatt Work Phone: [facility] 12-18-2022 23:05-0400 Body temperature 98.5 [degF] SADAF Wyatt Work Phone: [facility] 08-20-2022 14:31-0500 Body height 165.1 cm PA-Ventura Wyatt Work Phone: [facility] 08-20-2022 14:31-0500 Body temperature 98.9 [degF] FERMIN-Ventura Wyatt Work Phone: [facility] 08-20-2022 14:31-0500 Body weight 71.55 kg SADAF yWatt Work Phone: [facility] 08-20-2022 14:31-0500 Diastolic blood pressure 87 mm[Hg] PA-Ventura Wyatt Work Phone: [facility] 08-20-2022 14:31-0500 Heart rate 97 /min SADAF Wyatt Work Phone: [facility] 08-20-2022 14:31-0500 Respiratory rate 18 /min SADAF Wyatt Work Phone: [facility] 08-20-2022 14:31-0500 SaO2% (BldA) [Mass fraction] 98 % PA-Ventura Wyatt Work Phone: [facility] 08-20-2022 14:31-0500 Systolic blood pressure 135 mm[Hg] PA-Ventura Wyatt Work Phone: [facility] 02-08-2022 03:06-0400 Body weight 68.[address] CUONG ORTIZ . [facility] Comment on above: Performed By: #### AFPMAT #### [facility] [address] [place] [address] Dr. Juan Antonio Ibarra 02-05-2022 18:24-0400 Body height 165.1 cm PAZhao Wyatt Work Phone: [facility] 02-05-2022 18:24-0400 Body temperature 98.3 [degF] SADAF Wyatt Work Phone: [facility] 02-05-2022 18:24-0400 Body weight 67.9 kg PAZhao Wyatt Work Phone: [facility] 02-05-2022 18:24-0400 Diastolic blood pressure 68 mm[Hg] SADAF Wyatt Work Phone: [facility] 02-05-2022 18:24-0400 Heart rate 92 /min SADAF Wyatt Work Phone: [facility] 02-05-2022 18:24-0400 Respiratory rate 18 /min SADAF Wyatt Work Phone: [facility] 08-22-2022 18:24-0400 SaO2% (BldA) [Mass fraction] 99 % SADAF Wyatt Work Phone: [facility] 02-05-2022 18:24-0400 Systolic blood pressure 125 mm[Hg] SADAF Wyatt Work Phone: [facility] Encounters Encounter Date Encounter Type Care Provider Facility Start: 11-04-2023 End: 11-04-2023 ambulatory CUONG DIANA Not Available Start: 10-28-2023 End: 10-28-2023 ambulatory CUONG DIANA Not Available Start: 10-14-2023 End: 10-14-2023 ambulatory CUONG DIANA Not Available Start: 09-30-2023 End: 09-30-2023 ambulatory CUONG DIANA Not Available Start: 09-12-2023 End: 09-12-2023 ambulatory CUONG DIANA Not Available Start: 08-15-2023 End: 08-15-2023 ambulatory [facility] Start: 08-15-2023 End: 08-15-2023 ambulatory CUONG DIANA Not Available Start: 07-22-2023 Documentation procedure Lucio Renee [facility] Work Phone: [facility] Comment on above: Outgoing Ca ll Start: [...] pre gnancy Start: 07-18-2023 End: 07-18-2023 ambulatory [facility] Start: 07-03-2023 End: 07-03-2023 ambulatory CUONG R DIANA [facility] Start: 07-03-2023 End: 07-03-2023 Telemedicine consultation with patient Rosaura Renee [facility] Work Phone: [facility] Comment on above: Family history of ge netic disorder (Primary Dx); Genetic testing; Fetus with trisomy 13, single gestation Start: 06-20-2023 End: 06-20-2023 ambulatory BARB WILLIAMS Not Available Start: 05-23-2023 End: 05-23-2023 ambulatory CUONG ORTIZ Not Available Start: 04-16-2023 ambulatory Cesar Clayton acility:[facility] Start: 02-11-2023 End: 02-11-2023 Emergency department patient visit Johnson Annie Facility:[facility] Start: 02-11-2023 End: 02-11-2023 Emergency department patient visit SADAF Wyatt Work Phone: [facility] Work Phone: Start: 02-08-2023 End: 02-08-2023 Emergency department patient visit Elle Rhodes Facility:[facility] Start: 02-08-2023 End: 02-08-2023 Emergency department patient visit SADAF Wyatt Work Phone: [facility] Work Phone: Start: 12-19-2022 End: 12-19-2022 ambulatory Arden Orozco Facility:[facility] Start: 12-19-2022 End: 12-19-2022 Evaluation and management of inpatient SADAF Wyatt Work Phone: [facility] [place] [facility] Work Phone: Start: 12-19-2022 End: 12-19-2022 observation encounter SADAF Wyatt Work Phone: [facility] Work Phone: Start: 10-24-2022 End: 10-24-[address] CUONG ORTIZ . Facility:[facility] Start: 10-23-2022 Registered Recurring SADAF Wyatt Work Phone: [facility] Start: 08-20-2022 End: 08-20-2022 Emergency department patient visit Elle Rhodes Facility:[facility] Start: 08-20-2022 End: 08-20-2022 Emergency department patient visit SADAF Wyatt Work Phone: [facility] Work Phone: Start: 07-23-[address] CUONG ORTIZ . Facili ty:[facility]1 Start: 07-09-2022 End: 07-09-[address] CUONG ORTIZ . Facility: Start: 07-05-2022 End: 07-07-2022 Evaluation and management of inpatient DR CUONG ORTIZ . Facility: Start: 07-02-2022 End: 07-02-2022 [facility] Facility:[facility] Start: 06-28-2022 End: 06-28-[address] CUONG ORTIZ . Facility: Start: 06-21-2022 End: 06-21-2022 [facility] Facility:[facility] Start: 06-16-2022 End: 06-16-[address] [...] ORTIZ . Facility:[facility] Start: 05-24-2022 End: 05-24-2022 [facility] Facility:[facility] Start: 04-04-2022 End: 04-05-[address] [...] visit SADAF Wyatt Work Phone: [facility] Start: 12-26-2021 End: 12-27-[address] CUONG ORTIZ . Facility:[facility] Start: 12-07-2021 End: 12-08-[address] CUONG ORTIZ . Facility: Start: 12-27-2017 End: 12-27-2017 Patient encounter Christian Ivan Facility:[facility] Start: 12-12-2017 End: 12-12-2017 Emergency department patient visit Luke Barbosa Facility:[facility] Start: 12-12-2017 Patient encounter Facil [id number] Start: 12-07-2017 Evaluation and management of inpatient CLARA JAMA Facility:[facility] Start: 12-03-2017 Evaluation and management of inpatient CLARA JAMA Facility:[facility] Start: 12-03-2017 Patient encounter procedure CLARA JAMA Facility:[facility] Start: 12-02-2017 Evaluation and management of inpatient CLARA JAMA Facility:[facility] Start: 11-30-2017 End: 12-02-2017 Evaluation and management of inpatient CLARA TERESA JAMA [facility] Start: 11-30-2017 End: 11-30-2017 Patient encounter Salomon Nguyen Facility:[facility] Start: 11-30-2017 Patient encounter Facil [id number] Start: 11-28-2017 End: 11-28-2017 Patient encounter CLARA JAMA [facility] Start: 11-21-2017 End: 11-21-2017 Patient encounter OKSANA MASON [facility] Start: 11-21-2017 End: 11-21-2017 Patient encounter Juanita Cole Facility:[facility] Start: 11-20-2017 Patient encounter Facil [id number] Start: 11-17-2017 End: 11-17-2017 Patient encounter Christian Ivan Facility:[facility] Start: 11-16-2017 Patient encounter Facil [id number] Start: 11-07-2017 End: 11-07-2017 Patient encounter OKSANA AMADO [facility] Start: 10-31-2017 End: 10-31-2017 Patient encounter CLARA JAMA [facility] Start: 10-24-2017 End: 10-24-2017 Patient encounter MARCO ANTONIO ANTONIO [facility] Start: 10-16-2017 End: 10-16-2017 Patient encounter Christian Ivan Facility:[facility] Start: 10-08-2017 End: 10-08-2017 Patient encounter ALIREZA PATEL [facility] Start: 10-08-2017 End: 10-08-2017 Patient encounter OKSANA AMADO [facility] Start: 10-01-2017 End: 10-02-2017 Patient encounter Christian Ivan Facility:[facility] Start: 09-10-2017 End: 09-11-2017 Patient encounter LUIS DANIEL RONCUSO [facility] Start: 09-10-2017 End: 09-10-2017 Patient encounter KRIS OHYT [facility] Start: 09-10-2017 End: 09-10-2017 Patient encounter CLARA JAMA [facility] Start: 09-03-2017 End: 09-04-2017 Patient encounter Christian Ivan Facility:[facility] Start: 08-28-2017 Ambulatory NAGA KARLA [facility] Start: 08-13-2017 End: 08-14-2017 Patient encounter CLARA JAMA [facility] Start: 08-13-2017 End: 08-13-2017 Patient encounter MEREDITH BENITO [facility] Start: 08-13-2017 End: 08-13-2017 Patient encounter ALIREZA PATEL [facility] Start: 08-10-2017 End: 08-10-2017 Emergency department patient visit Luke Barbosa Facility:[facility] Start: 08-06-2017 End: 08-07-2017 Patient encounter Christian Hennessyir Facility:[facility] Start: 07-23-2017 End: 07-24-2017 Patient encounter Christian A [place] Facility:[facility] Start: 07-18-2017 End: 07-18-2017 Patient encounter CLARA JAMA [facility] Start: 07-09-2017 End: 07-10-2017 Patient encounter Christian A [place] Facility:[facility] Start: 06-25-2017 End: 06-26-2017 Patient encounter Christian A [place] Facility:[facility] Start: 06-12-2017 End: 06-12-2017 Patient encounter Christian A [place] Facility:[facility] Start: 05-14-2017 End: 05-15-2017 Patient encounter Christian A Shekhar Facility:[facility] Start: 05-01-2017 End: 05-02-2017 Patient encounter Salomon Nguyen Facility:[facility] Start: 04-23-2017 End: 04-23-2017 Patient encounter Yasmin Evans Facility:[facility] Start: 04-22-2017 End: 04-22-2017 Emergency department patient visit Luke Barbosa Facility:[facility] Start: 04-18-2017 End: 04-18-2017 Emergency department patient visit Luke Barbosa Facility:[facility] Start: 04-16-2017 End: 04-17-2017 Patient encounter Gamaliel Savage Facility:[facility] Start: 04-16-2017 End: 04-17-2017 Patient encounter Christian Morelia [place] Facility:[facility] Start: 04-11-2017 End: 04-11-2017 Emergency department patient visit Nodr No Doctor Assigned Facility:[facility] Start: 03-26-2017 End: 03-27-2017 Patient encounter Luke Barbosa Facility:[facility] Start: 03-20-2017 End: 03-20-2017 Emergency department patient visit Nodr No Doctor Assigned Facility:[facility] Start: 03-01-2017 End: 03-01-2017 Emergency department patient visit Nodr No Doctor Assigned Facility:[facility] Procedures Date Procedure Procedure Detail Performing Clinician Start: 07-18-2023 AFP, SERUM, OPEN SPI NA BIFIDA Cuong Ortiz DO Work Phone: Start: 07-18-2023 Urnls dip stick/tabl et rgnt non-auto w/o micrscp Cuong Ortiz DO Work Phone: Start: 12-19-2022 Urine culture SADAF Wyatt Work Phone: Start: 12-19-2022 CT of head without contrast SADAF Wyatt Work Phone: Start: 12-19-2022 Antibody screen aCry Jean Comment on above: Result Comment: PERF ORMED BY: [address] [address] PATHOLOGIST LIQUEFIER MALVIN MEDLEY M.D. Start: 12-19-2022 X-ray of [...] Adult depression scr eening assessment Rosaura Renee [facility] Work Phone: Start: 11-30-2017 Antibody screen RUCHIAyaz JAMA Comment on above: Performed By: #### T &S #### [place] [address] Aerobic microbial culture FERMIN Wyatt Work Phone: Investigation of transfusion reaction SADAF Wyatt Work Phone: Plan of Treatment Date Care Activity Detail Author Start: 12-18-2032 DTaP,Tdap and Td Vaccines (10 - Td or Tdap) DTaP,Tdap and Td Vaccines (10 - Td or Tdap) [facility] Start: 09-11-2023 Adult BMI Screening Adult BMI Screening [facility] Start: 09-11-2023 Tobacco Screening Tobacco Screening [facility] Start: 08-15-2023 End: 08-15-2023 Patient encounter procedure 08/15/2023 2:15 PM EST Appointment [facility] [address] [address] [facility] Start: 08-15-2023 End: 08-15-2023 Patient encounter procedure 08/15/2023 9:10 AM EST Routine [facility] [address] [place] [id number] Cuong Ortiz, DO [address] [place] [place] [address] [facility] Start: 07-18-2023 End: 07-18-2023 Patient encounter procedure 07/18/2023 8:00 AM EST Appointment [facility] [address] [facility] [address] [place] [address] [facility] Start: 05-02-2023 Depression Screening Depression Screening [facility] Start: 02-15-2023 COVID-19 Vaccine (3 - 2023-24 season) COVID-19 Vaccine () [facility] Start: 02-15-2023 Influenza vaccination [facility] Start: 12-19-2022 Bacteria identified in Urine by Culture Urine Culture [facility] Start: 12-19-2022 [facility] Start: 12-19-2022 CT of head without contrast CT head/brain wo [facility] Start: 12-19-2022 CT Unspecified body region WO contrast [facility] Start: 12-19-2022 Consultation [facility] Start: 12-19-2022 Hospital admission [facility] Start: 12-19-2022 X-ray of left foot XR foot LT 2V [facility] Start: 12-19-2022 XR Foot - left 2 Views [facility] Start: 12-18-2022 Computed tomography of thoracic spine without contrast CT thoracic spine wo [facility] Start: 12-18-2022 CT cervical spine without contrast CT cervical spine wo [facility] Start: 12-18-2022 CT Cervical spine WO contrast [facility] Start: 12-18-2022 CT Lumbar spine WO contrast [facility] Start: 12-18-2022 CT of head without contrast CT head/brain wo [facility] Start: 12-18-2022 CT of lumbar spine without contrast CT lumbar spine wo [facility] Start: 12-18-2022 CT Thoracic spine WO contrast [facility] Start: 12-18-2022 CT Unspecified body region WO contrast [facility] Start: 12-18-2022 Pelvis X-ray XR pelvis 1-2V [facility] Start: 12-18-2022 Plain chest X-ray XR chest 1V portable [facility] Start: 12-18-2022 X-ray of both knees XR knee BI 2V [facility] Start: 12-18-2022 XR Chest Single view [facility] Start: 12-18-2022 XR Knee - bilateral 2 Views [facility] Start: 12-18-2022 XR Pelvis 1 or 2 Views [facility] Start: 2022 Screening for malignant neoplasm of cervix [facility] Start: 02-05-2022 [facility] Work Phone: Start: 2013 Screening for malignant neoplasm of cervix Pap Smear [facility] Start: 2010 Adult BMI Follow Up Plan Adult BMI Follow Up Plan [facility] Anaerobic microbial culture Anaerobic Culture [facility] Bacteria identified in Urine by Culture [facility] Patient Education [facility] Work Phone: Patient referral [facility] Work Phone: Immunizations Immunization Date Immunization Notes Care Provider Fa cilijoaquina 12-18-2022 tetanus toxoid, redu swati diphtheria toxoid, and acellular pertussis vaccine, adsorbed SADAF Wyatt Work Phone: [facility] 05-19-2013 influenza virus vaccine, unspecified formulation Rosaura Renee [facility] Work Phone: [facility] Payers Date Payer Category Payer Self-pay 2017 Medicaid 2017 Unknown 1992 Unknown [id number] 2.16840.1.207793.3.579.2.278 1992 Unknown [id number] 2.16840.1.089924.3.579.2.278 1992 Unknown [id number] 2.840.1.614881.3.579.2.278 1992 Unknown [id number] 2.16840.1.612022.3.579.2.278 1992 Unknown [id number] 2.16.840.1.711717.3.579.2.593 1992 Unknown [id number] 2.16.840.1.636556.3.579.2.593 1992 Unknown [id number] 2.16.840.1.773720.3.579.2.593 1992 Unknown [id number] 2.16840.1.249770.3.579.2.593 1992 Unknown [id number] 2.16.840.1.514946.3.579.2.593 1992 Unknown [id number] 2.16.840.1.264246.3.579.2.593 1992 Unknown [id number] 2.16.840.1.478494.3.579.2.593 1992 Unknown [id number] 2.16.840.1.799749.3.579.2.593 1992 Unknown [id number] 2.16.840.1.253553.3.579.2.59 1992 Unknown [id number] 2.16.840.1.884001.3.579.2.593 1992 Unknown [id number] 2.16.840.1.438538.3.579.2.59 1992 Unknown [id number] 2.16.840.1.749402.3.579.2.593 1992 Unknown [id number] 2.16.840.1.730182.3.579.2.593 1992 Unknown [id number] 2.16.840.1.277108.3.579.2.593 1992 Unknown [id number] 2.16.840.1.238963.3.579.2.593 1992 Unknown [id number] 2.16.840.1.737568.3.579.2.593 1992 Unknown [id number] 2.16.840.1.609488.3.579.2.593 1992 Unknown [id number] 2.16.840.1.811549.3.579.2.593 1992 Unknown [id number] 2.16.840.1.271458.3.579.2.593 1992 Unknown [id number] 2.16.840.1.116768.3.579.2.593 1992 Unknown [id number] 2.16.840.1.892308.3.579.2.593 1992 Unknown [id number] 2.16.840.1.971663.3.579.2.593 1992 Unknown [id number] 2.16.840.1.691974.3.579.2.1286 1992 Unknown [id number] 2.16.840.1.818735.3.579.2.1286 1992 Unknown [id number] 2.16.840.1.831970.3.579.2.1286 1992 Unknown [id number] 2.16.840.1.795098.3.579.2.9 1992 Unknown [id number]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
== END 2023-11-20 12:07 | disposition home or self-care (01) ==
LOC: FBCO 08:17
PROVIDERS: PCP Physician Assistant; Visit Provider Obstetrics & Gynecology
DX: Z39.1 Encounter for care and examination of lactating mother (principal)

== ENCOUNTER 2023-11-27 09:28 | Outpatient (OUT) | payer MEDICAID, SELFPAY ==
--- NOTE | 2023-11-27 11:38 | PC.NURSE ---
Nadine and 3 week old Dania arrive for support. Nadine struggles with low milk supply after classic breast reduction 9-10 years ago. States I didn't know if I would have children or even want to breastfeed . Now is struggling to pump 15 ml combined every 3 hours. Most daytime pumps I don't get anything at all, regardless of which pump I use or how long it has been since the last pump or her being at the breast States baby only will latch for 3-4 minutes and will not sustain a feeding. Infant is being offered the breast half the time and suckles for 3-4 minutes before coming off crying. Mom then gives bottle of formula, with infant taking 3-4 oz of higher calorie mix per Dr Pepe order and is then happy/ satisfied. Nadine very torn with next steps. Vocalizes confusion on continuing to pump and the defeat of obtaining nothing or maybe only drops. Very mentally painful when I really wanted to work this time Support offered and pt aware she is in control over journey. States wanted reassurance that it is okay to stop if the supply is not improving over the next week Further discussion had and Nadine plans to attend [facility] 12/03/2023. Baby Dania pink, alert, active and content. Weight obtained at 6-15.5. Mom pleased with weight gain. Mom and baby leave ambulatory. Aware to call for questions or concerns.
== END 2023-11-27 11:59 | disposition home or self-care (01) ==
LOC: FBCO 09:29
PROVIDERS: PCP Physician Assistant; Visit Provider Obstetrics & Gynecology
DX: Z39.1 Encounter for care and examination of lactating mother (principal)

== ENCOUNTER 2024-04-25 13:53 | Emergency (ER) | payer MEDICAID, SELFPAY ==
[2024-04-25 14:07] VITALS: BP 132/85; PULSE 68; TEMP 37.1; O2SAT 98; BMI 21.6
--- NOTE | 2024-04-25 14:18 | ED.GENADUL1 ---
HPI HPI - General Adult General Chief complaint: Recheck/Abnormal Lab/Rx Stated complaint: POSSIBLE Time Seen by Provider: 04/25/24 14:00 Source: patient Mode of arrival: walk-in Limitations: no limitations History of Present Illness HPI narrative: 34-year-old female presents to the emergency department for a chief complaint of possibility of . She has no symptoms other than being for 5 days late for her period. She did not have a test at home so she did not take 1. She has no abdominal pain. She had given in October of this year. Related Data Home Medications ?Medication ?Instructions ?Recorded ?Confirmed 2 tab PO DAILY 07/28/23 07/28/23 Allergies Allergy/AdvReac Type Severity Reaction Status Date / Time Penicillins Allergy Unknown Verified 07/28/23 23:23 Sulfa (Sulfonamide Allergy Unknown Verified 07/28/23 23:23 Antibiotics) Opioid HPI Opioid Management Most Recent Opioid Data: Last Pain Scale 8 11/09/23 08:11 11/09/23 Ur Phencyclidine Scrn Negative (NEGATIVE) 11/06/23 23:23 11/06/23 Review of Systems ROS Narrative A ten point review of systems is negative except as noted above. [facility] Medical History (Updated 04/25/24 @ 14:56 by Hema Muniz MD) (spontaneous vaginal delivery) ?O80 - Encounter for full-term uncomplicated delivery (ICD-10) Social History Smoking status: Former smoker Little interest or pleasure in doing things: not at all Feeling down, depressed, or hopeless: not at all Exam Narrative Exam Narrative: Nurses note and vital signs reviewed and patient is not hypoxic. General: The patient appears well and in no apparent distress. Patient is resting comfortably, sitting on the examination chair Skin: Warm, dry, no pallor noted. There is no rash noted. Head: Normocephalic, atraumatic Eye: Normal conjunctiva, no drainage Ears, Nose, Mouth, and Throat: oral mucosa is moist. Nares patent. Cardiovascular: Regular Rate and Rhythm Respiratory: Patient is in no distress, no accessory muscle use, lungs are clear to auscultation, no wheezing, rales or rhonchi GI: Nontender Musculoskeletal: No joint swelling Neurological: Awake and alert Psychiatric: Cooperative Constitutional Vital Signs, click to edit/add: Last Vital Signs Temp 98.7 F 04/25/24 14:07 Pulse 68 04/25/24 14:07 Resp 18 04/25/24 14:07 BP 132/85 04/25/24 14:07 Pulse Ox 98 04/25/24 14:07 O2 Del Method Room Air 04/25/24 14:07 Course Vital Signs Vital signs: Vital Signs Temperature 98.7 F 04/25/24 14:07 Pulse Rate 68 04/25/24 14:07 Respiratory Rate 18 04/25/24 14:07 Blood Pressure 132/85 04/25/24 14:07 Pulse Oximetry 98 04/25/24 14:07 Oxygen Delivery Method Room Air 04/25/24 14:07 Temperature 98.7 F 04/25/24 14:07 Pulse Rate 68 04/25/24 14:07 Respiratory Rate 18 04/25/24 14:07 Blood Pressure 132/85 04/25/24 14:07 Pulse Oximetry 98 04/25/24 14:07 Oxygen Delivery Method Room Air 04/25/24 14:07 Medical Decision Making MDM Narrative Medical decision making narrative: test is positive and she was informed. Differential Diagnosis Differential Diagnosis: , missed. Lab Data Lab results reviewed: Yes I reviewed the patient's lab results Labs: Lab Results 04/25/24 Range/Units 14:10 Urine HCG, Qual Positive A (NEGATIVE) Discharge Plan Discharge Chief Complaint: Recheck/Abnormal Lab/Rx Clinical Impression: Patient Disposition: Home, Self-Care Time of Disposition Decision: 14:55 Condition: Good Mode of Transportation: Private Vehicle Prescriptions / Home Meds: No Action 2 tab PO DAILY Print Language: Kyrgyz Instructions: (ED) Additional Instructions: Follow-up with your help desk support Referrals: Jaime Wyatt [Primary Care Provider] - 1 week
--- OUTSIDE RECORDS SUMMARY | 2024-04-25 14:19 | XMS_ITS | CCD ---
Author Organization [facility] Care Team Providers Care Courtesy Bus Driver Name Role Phone CATHY JAMAVASQUEZ MOORE Unavailable Unavail able SERENITY MALDONADO Unavailable Unavailable OKSANA CARO Unavailable Unavai NAGA Barrios Unavailable Unavailable BARBOSA, LUKE MALIK Unavailable Unavailable PatrickSalomon terrell R Unavailable Unavailable PatrickSalomon terrell R Unavailable Unavailable Barbosa, Luke Unavailable Unavailable [place], Christian A Unavailable Unavailable Barbosa, Luke Unavailable Unavailable [place], Christian A Unavailable Unavailable Barbosa, Luke Unavailable Unavailable Shekhar, Christian A Unavailable Unavailable Barbosa, Luke Unavailable Unavailable [place], Christian A Unavailable Unavailable Barbosa, Luke Unavailable Unavailable [place], Christian A Unavailable Unavailable Shekhar, Christian A Unavailable Unavailable Barbosa, Luke Unavailable Unavailable [place], Christian A Unavailable Unavailable Barbosa, Luke Unavailable Unavailable [place], Christian A Unavailable Unavailable [place], Christian A Unavailable Unavailable Barbosa, Luke Unavailable Unavailable Barbosa, Luke Unavailable Unavailable Woo, Emiliano Unavailable Unavailable Woo, Emiliano Unavailable Unavailable Patrick, Salomon R Unavailable Unavailable Barbosa, Luke Unavailable Unavailable Barbosa, Luke Unavailable Unavailable [place], Jag W Unavailable Unavailable Oscar, Jag W Unavailable Unavailable Shekhar, Christian A Unavailable Unavailable Barbosa, Luke Unavailable Unavailable [place], Christian A Unavailable Unavailable Barbosa, Luke Unavailable Unavailable No Doctor Assigned, Nodr Unavailable Unavail able Ivanauskas, Saulius Unavailable Unavailable Ivanajohnathon, Saulius Unavailable Unavailable Gamaliel Savage Unavailable Unavailable Gamaliel Savage Unavailable Unavailable Barbosa, Luke Unavailable Unavailable Eagle, Yasmin D Unavailable Unavailable Barbosa, Luke Unavailable Unavailable No Doctor Assigned, Nodr Unavailable Unavail able Woo, Emiliano Unavailable Unavailable Woo, Emiliano Unavailable Unavailable No Doctor Assigned, Nodr Unavailable Unavail able Oscar, Jag W Unavailable Unavailable [place], Jag W Unavailable Unavailable Barbosa, Luke Unavailable [...] Luke Unavailable Unavailable Barbosa, Luke Unavailable Unavailable [place], Jag W Unavailable Unavailable [place], Jag W Unavailable Unavailable [place], Christian A Unavailable Unavailable Barbosa, Luke Unavailable [...] Emergency Provider SADAF Wyatt Primary Care Provider [facility] Elle Whitney Emergency Provider DIANA .DR ACOSTA Consulting Unavailable [facility] [place] [place] Primary Care Unavailable DIANA ., DR ACOSTA Attending Unavailable DIANA ., DR ACOSTA Admitting Unavailable DIANA ., DR ACOSTA Admitting Unavailable DIANA ., DR ACOSTA Attending Unavailable [facility] [place] [place] Primary Care Unavailable DIANA ., DR ACOSTA Consulting Unavailable SUSI, DR FELECIA Chadwick Consulting Unavailable [facility] [place] [place] Primary Care Unavailable KARASIK ., DR CAMACHO Admitting Unavailabl e KARASIK ., DR CAMACHO Attending Unavailabl e KARASIK ., DR CAMACHO Consulting Unavailabl e WEST, DR GAMALIEL Fischer Consulting Unavailable DIANA ., DR ACOSTA Consulting Unavailable ZIEBER, DR FELECIA Chadwick Consulting Unavailable WILLIAMS ., BARB Admitting Unavailable WILLIAMS ., BARB Attending Unavailable [facility] [place] [place] Primary Care Unavailable WILLIAMS ., BARB Consulting Unavailable DIANA ., DR ACOSTA Admitting Unavailable DIANA ., DR ACOSTA Attending Unavailable [facility] [place] [place] Primary Care Unavailable DIANA ., DR ACOSTA Consulting Unavailable [facility] [place] [place] Primary Care Unavailable KARASIK ., DR CAMACHO Admitting Unavailabl e KARASIK ., DR CAMACHO Attending Unavailabl e KARASIK ., DR CAMACHO Consulting Unavailabl e DIANA ., DR ACOSTA Admitting Unavailable DIANA ., DR ACOSTA Attending Unavailable [facility] [place] [place] Primary Care Unavailable DIANA ., DR ACOSTA Consulting Unavailable ZIEBER, DR FELECIA Chadwick Consulting Unavailable DIANA ., DR ACOSTA Admitting Unavailable DIANA ., DR ACOSTA Attending Unavailable [facility] [place] [place] Primary Care Unavailable DIANA ., DR ACOSTA Consulting Unavailable ZIEBER, DR FELECIA Chadwick Consulting Unavailable PRATIMA, BRODIE Consulting Unavailable DIANA ., DR ACOSTA Consulting Unavailable [facility] [place] [place] Primary Care Unavailable DIANA ., DR ACOSTA Attending Unavailable DIANA ., DR ACOSTA Admitting Unavailable ZIEBER, DR FELECIA Chadwick Consulting Unavailable DIANA ., DR ACOSTA Consulting Unavailable [facility] [place] [place] Primary Care Unavailable DIANA ., DR ACOSTA Attending Unavailable DIANA ., DR ACOSTA Admitting Unavailable DIANA ., DR ACOSAT Admitting Unavailable DIANA ., DR ACOSTA Attending Unavailable [facility] [place] [place] Primary Care Unavailable DIANA ., DR ACOSTA Consulting Unavailable ZIEBER, DR FELECIA Chadwick Consulting Unavailable DIANA ., DR ACOSTA Admitting Unavailable DIANA ., DR ACOSTA Attending Unavailable [facility] [place] [place] Primary Care Unavailable WEST, DR GAMALIEL Fischer Consulting Unavailable DIANA ., DR ACOSTA Consulting Unavailable [facility] [place] [place] Primary Care Unavailable KARASIK ., DR CAMACHO Admitting Unavailabl e KARASIK ., DR CAMACHO Attending Unavailabl e KARASIK ., DR CAMACHO Consulting Unavailabl e DIANA ., DR ACOSTA Consulting Unavailable ZIEBER, DR FELECIA Chadwick Consulting Unavailable DIANA ., DR ACOSTA Admitting Unavailable DIANA ., DR ACOSTA Attending Unavailable [facility] [place] [place] Primary Care Unavailable WEST, DR GAMALIEL Fischer Consulting Unavailable DIANA ., DR ACOSTA Consulting Unavailable DIANA ., DR ACOSTA Admitting Unavailable DIANA ., DR ACOSTA Attending Unavailable [facility] [place] [place] Primary Care Unavailable DIANA ., DR ACOSTA Consulting Unavailable DIANA ., DR ACOSTA Admitting Unavailable DIANA ., DR ACOSTA Attending Unavailable [facility] [place] [place] Primary Care Unavailable DIANA ., DR ACOSTA Consulting Unavailable ZIEBER, DR FELECIA Chadwick Consulting Unavailable DIANA ., DR ACOSTA Admitting Unavailable DIANA ., DR ACOSTA Attending Unavailable [facility] [place] [place] Primary Care Unavailable DIANA ., DR ACOSTA Consulting Unavailable DIANA ., DR ACOSTA Admitting Unavailable DIANA ., DR ACOSTA Attending Unavailable [facility] [place] [place] Primary Care Unavailable DIANA ., DR ACOSTA Consulting Unavailable [facility] [place] [place] Primary Care Unavailable DIANA ., DR ACOSTA Attending Unavailable DIANA ., DR ACOSTA Admitting Unavailable DIANA ., DR ACOSTA Admitting Unavailable DIANA ., DR ACOSTA Attending Unavailable [facility] [place] [place] Primary Care Unavailable DIANA ., DR ACOSTA Admitting Unavailable DIANA ., DR ACOSTA Attending Unavailable [facility] [place] [place] Primary Care Unavailable KARASIK ., DR CAMACHO Consulting Unavailabl e DIANA ., DR ACOSTA Consulting Unavailable DIANA ., DR ACOSTA Procedure Practitioner Unavail able ORLANDO PRASAD Consulting Unavailable JACQUES FLETCHER Consulting Unavailable DIANA ., DR ACOSTA Admitting Unavailable DIANA ., DR ACOSTA Attending Unavailable [facility] [place] [place] Primary Care Unavailable KARASIK ., DR CAMACHO Consulting Unavailabl e ZIEBER, DR FELECIA Chadwick Consulting Unavailable SADAF Wyatt Primary Care Provider MD Farhan Jean Attending Provider DO Oscar Poe Emergency Provider Itzkowitz, DO Arden Admit Provider Itzkowitz, DO Arden Attending Provider Lorenzo CSTJAROCHO Costa Other Provider UnavailMD Juan Edwards Other Provider HAROON Monique Other Provider MD Jacques Valerio Other Provider [phone] MD Edith Uiras Other Provider SADAF Wyatt Primary Care Provider [place], BAKER PAINT-BC Elle E Emergency Provider [phone] BRANNON Valencia Emergency Provider Andie Wyatt PA-C Primary Care Provider Andie Johnson Unavailable Unallocated, Noms Provider Primary Care Provider Cesar Jean Admitting Unavailab le Cesar Jean Attending Unavailab le Andie Wyatt Primary Care Unavailable Itzkocece, Arden Admitting Unavailable Pam, Arden Attending Unavailable Andie Wyatt Primary Care Unavailable [...] Primary Care Unavailable BARB KRAMER Attending Unavailable DIANA, CUONG Attending Unavailable DIANA, CUONG Attending Unavailable DIANA, CUONG Attending Unavailable DIANA, CUONG Attending Unavailable DIANA, CUONG Attending Unavailable DIANA, CUONG Attending Unavailable DIANA, CUONG Attending Unavailable CUONG ORTIZ Attending Unavailable AMAURI RODRIGUEZ Referring Unavailable ANDIE WYATT Primary Care Unavailable CUONG ORTIZ Referring Unavailable ANDIE WYATT Primary Care Unavailable Allergies Allergy Classification Reported Allergen(s) Allergy Type Date of Onset Reaction(s) Facility (2 sources) Bee; Translations: [BEES] Propensity to adverse reactions (disorder) 8 [facility] Repository (2 sources) Mold spore; Translations: [MOLD SPORES] Propensity to adverse reactions (disorder) 8 [facility] Repository (18 sources) Penicillins; Translations: [PENICILLINS] Propensity to adverse reactions to drug (disorder) 4 [facility] Repository (12 sources) Sulfonamides (Antibiotic); Translations: [SULFA (SULFONAMIDE ANTIBIOTICS)] Propensity to adverse reactions to drug (disorder) 8 AO, [facility] Repository (1 source) Bee/Wasp/Ant venom; Translations: [Bee Stings] Propensity to adverse reactions to drug (disorder) [facility] Repository (1 source) mold extract; Translations: [Mold] Drug Allergy [facility] Repository (1 source) Sulfonamides (Antibiotic); Translations: [sulfa drugs] Propensity to adverse reactions to drug (disorder) [facility] Repository (4 sources) bee venom; Translations: [BEE VENOM] Propensity to adverse reactions to drug (disorder) 8 [facility] Repository (1 source) OTHER; Translations: [OTHER] Propensity to adverse reactions to food (disorder) 8 [facility] Repository (1 source) MOLDS & SMUTS; Translations: [MOLDS & SMUTS] Propensity to adverse reactions to drug (disorder) 8 [facility] Repository (4 sources) SULFA ANTIBIOTICS; Translations: [SULFA ANTIBIOTICS] Propensity to adverse reactions to drug (disorder) 8 [facility] Repository (1 source) Sulfonamides (Antibiotic) Drug allergy (disorder) 4 [facility] Repository (4 sources) Bee Venom Protein (Honey Bee); Translations: [BEE VENOM PROTEIN (HONEY BEE)] Propensity to adverse reactions to drug 2 [employer] (1 source) Penicillin Drug Allergy 2 [facility] [...] mouth in the morning. 0 02/27/2023 Active [place] (No Known Home Meds) (2 sources) Start: 12-18-2022 [place] (No Known Home Meds) Active December 18, [...] (-1 ORAL) Take by mouth. 0 Active Hleujieo-Ajk-Uk-FA (, w/Iron & FA,) 27-0.8 MG tablet (3 sources) Jaopsobp-Fpj-Wo-FA (, w/Iron & FA,) 27-0.8 MG tablet 1 (one) time each day at the same time. 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] Onset: 07-05-2022 Unclassified [...] of skin sensation] Onset: 12-19-2022 12-19-2022 Episodic Other screening for suspected conditions (not mental disorders or infectious disease) (18 sources) Encounter for screening for malignant neoplasm of cervix; Translations: [Encounter for screening for diabetes mellitus] Onset: 12-27-2021 Episodic Polyhydramnios and other problems of amniotic [...] 12-12-2021 Episodic Unclassified (1 source) 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 [facility] AFP VALUE 70.2 ng/mL . [facility] COMMENT: Comment . [facility] Comment on above: Alma Chaudhary , Ph.D., [facility] Director References: Available Upon Request. Multiples Of Median Cutoffs For AFP Elevations Briscoe 2.5 Black 2.8 IDD 2.0 Twins 4.5 Abbreviation Definitions IDD - Insulin Dep Diabetes OSBR - Open Spina Bifida Risk For further inquiries contact [employer] [facility] at [phone]. This test was developed and its performance characteristics determined by [employer]. It has not been cleared or approved by the Food and Drug Administration. Performed at: [facility] [address] [place], [place] [id number] [employer] Assistant: Oz Harkins [facility], Phone: [phone] GEST. AGE ON COLLECTION DATE 20.4 . weeks [facility] GESTAT. AGE BASED ON LMP . [facility] Comment on above: Recalculations are n ot recommended when gestational dating by LMP and ultrasound are within 10 days. INSULIN DEP DIABETES No . [facility] INTERPRETATION Comment . [facility] Comment on above: Interpretation: Scre [...] Customer Services to discuss available options. The [place] [employer] recommends amniocentesis be offered to women age 35 and older. [age] [facility] MULTIPLE GESTATION No . [facility] OSBR RISK 1 [place] 6301 . [facility] RACE . [facility] RESULTS Report . [facility] TEST RESULTS: Negative . [facility] WEIGHT 159 . lbs [facility] N N LMP [id number] 3 16 N 1 Y 159 N N N N White/ [facility] Urinalysis macro (dipstick) panel (U)on 07-18-2023 Bilirubin, UA Negative Negative - 4(70) +++ mg/dL [facility] Blood, UA Negative Negative - 50 Rakesh/mcL [facility] Clarity, UA Clear [facility] Color, UA Yellow [facility] Glucose, UA Negative Negative - 1999(110) ++++ mg/dL [facility] Interpretation and review of laboratory results Normal [facility] Ketones, UA Negative Negative - 160(16) ++++ mg/dL [facility] Leukocytes, UA Negative Negative - 500+++ Matti/mcL [facility] Nitrite, UA Negative Negative - Positive [facility] pH, UA 5.5 5 - 9 [facility] Protein, UA Negative Negative - 1999(20) ++++ mg/dL [facility] Spec Grav, UA 1.020 1 - 1.03 [facility] Urobilinogen, UA 1.0 0.2 - 12 mg/dL [facility] ABO/Rh Retypeon 12-19-2022 ABO/RH Recheck Result Positive Normal [facility] Comment on above: Result Comment: PERF ORMED BY: [facility] [address] [place] [address] PATHOLOGIST CIRCULATING PROCESS INSPECTOR MALVIN MEDLEY M.D. Amphetamine Screen Ql (U)Ord ered By: Oscar Poe on 12-19-2022 Amphetamines Ql (U) Negative Negative [facility] Amylaseon 12-19-2022 Amylase [Catalytic activity/Vol] 35 U/L Normal 29-103 [facility] Comment on above: Performed By: #### C BC, CREAT, GLU, LYTES, AST, ETOH, BARB, LIPASE, CK, BUN ####[place] [id number] [address] Aspartate Amino Transferaseo n 12-19-2022 AST [Catalytic activity/Vol] 26 U/L Normal 13-39 [facility] Comment on above: Performed By: #### C BC, CREAT, GLU, LYTES, AST, ETOH, BARB, LIPASE, CK, BUN ####[facility] Automated erythrocytes count in urine sediment [...] on 12-19-2022 Benzodiazepines Ql (U) Negative Negative [facility] Benzoylecgonine [Presence] i n Urine by Screen methodOrdered By: Oscar Poe on 12-19-2022 Benzoylecgonine Screen Ql (U) Negative Negative [facility] Bilirubin Test strip Ql (U)O rdered By: Oscar Poe on 12-19-2022 Bilirubin Ql (U) Negative Negative [facility] Blood Urea Nitrogenon 2022 Urea nitrogen [Mass/Vol] 21 mg/dL Normal 7-25 [facility] Comment on above: Performed By: #### C BC, CREAT, GLU, LYTES, AST, ETOH, BARB, LIPASE, CK, BUN ####[place] [id number] [address] cervical spine wo conon 0 12-19-2022 CT cervical spine wo con [facility] Main [place] [address] [place] [address] CT Scan Report Signed Patient: Zuleika Wyatt MR#: [id number] : 1990 Acct:[id number] Age/Sex: 32 / F ADM Date: 12/19/22 Loc: Room: [address] [place] [address] Type: ADM INOo Attending Dr: Arden Orozco DO Copies to: DO Arden Jefferson DO Ordering Provider: Oscar Poe DO Date of Service: 12/18/22 CT/CT cervical spine wo con: f ([id number]) CT/CT head/brain wo con: f CT BRAIN [...] FRACTURE Impression dictated by: Rah Pimentel Jr., DGillian12/19/2022 10:25 AM Dictation Location: [place] [address] Transcribed By: [facility] 12/19/22 1025 Dictated By: Rah Pimentel Jr, DO 12/19/22 1016 Signed By: 12/19/22 1025 [facility] CT head/brain wo conon 12-19 CT head/brain wo con [facility] [place] [address] CT Scan Report Signed Patient: Zuleika Wyatt MR#: [id number] : 1990 Acct:[id number] Age/Sex: 32 / F ADM Date: 12/19/22 Loc: Room: [address] [place] [address] Type: DIS INOo Attending Dr: Arden Orozco [...] Pimentel Jr., D.O.12/19/2022 3:28 PM Dictation Location: [place] [address] Transcribed By: [facility] 12/19/22 1528 Dictated By: Rah Pimentel Jr, DO 12/19/22 1524 Signed By: 12/19/22 1528 [facility] CT lumbar spine wo [facility] CT lumbar spine wo [facility] [place] [address] CT Scan Report Signed Patient: Zuleika Wyatt MR#: [id number] : 1990 Acct:[id number] Age/Sex: 32 / F ADM Date: 12/19/22 Loc: Room: [address] [place] [address] Type: ADM INOo Attending Dr: Arden Orozco DO Copies to: DO Arden Jefferson DO Ordering Provider: Oscar Poe DO Date of Service: 12/18/22 CT/CT thoracic spine wo con: f ([id number]) CT/CT lumbar spine wo con: f CT [...] narrowing or hypertrophy. The ribs within the dvmzb-ud-vxlj appear intact. No paraspinal soft tissue abnormalities are present. The ascending aorta is mildly ectatic. The heart is not fully imaged though it is at least borderline prominent. There is no consolidation, pleural effusion or pneumothorax within the urtuu-eo-brwq. No lumbar compression fractures are identified. There [...] The intra-abdominal and pelvic structures within the plnzc-tk-doex show no contributory findings. CT/CT thoracic spine wo con IMPRESSION: MILD THORACIC SCOLIOSIS. NO ACUTE BONY INJURY INVOLVING THE THORACIC OR LUMBAR SPINE. Impression dictated by: Adela Mahan M.D.12/19/2022 10:36 AM Dictation Location: [place] [address] Transcribed By: [facility] 12/19/22 1036 Dictated By: Adela Mahan [...] on above: Result Comment: PERF ORMED BY: [facility] [place] [address] PATHOLOGIST CIRCULATING PROCESS INSPECTOR MALVIN MEDLEY M.D. Performed By: #### C BC, CREAT, GLU, LYTES, AST, ETOH, BARB, LIPASE, CK, BUN ####[address] Basophils/100 WBC (Bld) 0.7 % Normal . [facility] Comment on above: Performed By: #### C BC, CREAT, GLU, LYTES, AST, ETOH, BARB, LIPASE, CK, BUN ####[address] Eosinophils (Bld) [#/Vol] 0.0 10*3/uL Normal 0.0-0.45 [facility] Comment on above: Performed By: #### C BC, CREAT, GLU, LYTES, AST, ETOH, BARB, LIPASE, CK, BUN ####[address] Eosinophils/100 WBC (Bld) 0.2 % Normal . [facility] Comment on above: Performed By: #### C BC, CREAT, GLU, LYTES, AST, ETOH, BARB, LIPASE, CK, BUN ####[address] Erythrocyte distribution width (RBC) [Ratio] 14.4 % Normal 11.9-15.3 [facility] Comment on above: Performed By: #### C BC, CREAT, GLU, LYTES, AST, ETOH, BARB, LIPASE, CK, BUN ####[address] Hematocrit (Bld) [Volume fraction] 36.2 % Normal 34.0-46.4 [facility] Comment on above: Performed By: #### C BC, CREAT, GLU, LYTES, AST, ETOH, BARB, LIPASE, CK, BUN ####[address] Hemoglobin (Bld) [Mass/Vol] 11.9 g/dL Normal 11.8-15.4 [facility] Comment on above: Performed By: #### C BC, CREAT, GLU, LYTES, AST, ETOH, BARB, LIPASE, CK, BUN ####[address] Lymphocytes (Bld) [#/Vol] 2.2 10*3/uL Normal 1.00-4.8 [facility] Comment on above: Performed By: #### C BC, CREAT, GLU, LYTES, AST, ETOH, BARB, LIPASE, CK, BUN ####[address] Lymphocytes/100 WBC (Bld) 21.8 % Normal . [facility] Comment on above: Performed By: #### C BC, CREAT, GLU, LYTES, AST, ETOH, BARB, LIPASE, CK, BUN ####[address] MCH (RBC) [Entitic mass] 26.9 pg Normal 24.7-34.3 [facility] Comment on above: Performed By: #### C BC, CREAT, GLU, LYTES, AST, ETOH, BARB, LIPASE, CK, BUN ####[address] MCV (RBC) [Entitic vol] 82.1 fL Normal 80-100 [facility] Comment on above: Performed By: #### C BC, CREAT, GLU, LYTES, AST, ETOH, BARB, LIPASE, CK, BUN ####[address] Mean Corpuscular HGB Conc 32.8 g/dL Normal 32.0-35.0 [facility] Comment on above: Performed By: #### C BC, CREAT, GLU, LYTES, AST, ETOH, BARB, LIPASE, CK, BUN ####[address] Monocytes (Bld) [#/Vol] 0.8 10*3/uL Normal 0.0-0.8 [facility] Comment on above: Performed By: #### C BC, CREAT, GLU, LYTES, AST, ETOH, BARB, LIPASE, CK, BUN ####[address] Monocytes/100 WBC (Bld) 22.19 % High 0.00-20.00 [facility] Comment on above: Result Comment: For adults in ED, MDW > 20.0 may be associated with a higher risk of sepsis during the first 12 hrs of hospital admission Performed By: #### C BC, CREAT, GLU, LYTES, AST, ETOH, BARB, LIPASE, CK, BUN ####[address] Monocytes/100 WBC (Bld) 7.4 % Normal . [facility] Comment on above: Performed By: #### C BC, CREAT, GLU, LYTES, AST, ETOH, BARB, LIPASE, CK, BUN ####[address] Neutrophils (Bld) [#/Vol] 7.2 10*3/uL Normal 1.8-7.7 [facility] Comment on above: Performed By: #### C BC, CREAT, GLU, LYTES, AST, ETOH, BARB, LIPASE, CK, BUN ####[address] Neutrophils/100 WBC (Bld) 69.9 % Normal . [facility] Comment on above: Performed By: #### C BC, CREAT, GLU, LYTES, AST, ETOH, ABRB, LIPASE, CK, BUN ####[address] NRBC% 0.1 /100{WBC} Normal 0-0.5 [facility] Comment on above: Performed By: #### C BC, CREAT, GLU, LYTES, AST, ETOH, BARB, LIPASE, CK, BUN ####[address] Platelet mean volume (Bld) [Entitic vol] 8.1 fL Normal 6.3-10.7 [facility] Comment on above: Performed By: #### C BC, CREAT, GLU, LYTES, AST, ETOH, BARB, LIPASE, CK, BUN ####[address] Platelets (Bld) [#/Vol] 223 10*3/uL Normal 150-450 [facility] Comment on above: Performed By: #### C BC, CREAT, GLU, LYTES, AST, ETOH, BARB, LIPASE, CK, BUN ####[address] RBC (Bld) [#/Vol] 4.42 10*6/uL Normal 3.60-5.00 [facility] Comment on above: Performed By: #### C BC, CREAT, GLU, LYTES, AST, ETOH, BARB, LIPASE, CK, BUN ####[address] WBC (Bld) [#/Vol] 10.3 10*3/uL Normal 3.8-11.6 [facility] Comment on above: Performed By: #### C BC, CREAT, GLU, LYTES, AST, ETOH, BARB, LIPASE, CK, BUN ####[place] [id number] [facility] Creatine Kinaseon 12-19-2022 CK [Catalytic activity/Vol] 50 U/L Normal 30-223 [facility] Comment on above: Result Comment: PERF ORMED BY: [facility] [address] [place] [address] PATHOLOGIST CIRCULATING PROCESS INSPECTOR MALVIN MEDLEY M.D. Performed By: #### C BC, CREAT, GLU, LYTES, AST, ETOH, BARB, LIPASE, CK, BUN ####[place] [id number] [facility] Creatinineon 12-19-2022 Creatinine [Mass/Vol] 0.84 mg/dL Normal 0.60-1.20 [facility] Comment on above: Performed By: #### C BC, CREAT, GLU, LYTES, AST, ETOH, BARB, LIPASE, CK, BUN ####[facility] [place] [address] [place] Creatinine Clr Calc Pharmacy 98.76 [facility] Comment on above: Performed By: #### C BC, CREAT, GLU, LYTES, AST, ETOH, BARB, LIPASE, CK, BUN ####[facility] GFR/1.73 sq M.predicted MDRD (S/P/Bld) [Vol rate/Area] mL/min/{1.73_m2} [facility] Comment on above: Performed By: #### C BC, CREAT, GLU, LYTES, AST, ETOH, BARB, LIPASE, CK, BUN ####[facility] Dipstick and Microscopicon 0 12-19-2022 Appearance (U) Clear Normal Clear [facility] Comment on above: Order Comment: Name Collection Type:: Clean-Voided Midstream Performed By: #### U RDS, UHCG, CUU, ADDONUAPLUS #### [facility] [address] [place] [address] [place] Bacteria,Urine None Seen Normal None Seen [facility] Comment on above: Order Comment: Name Collection Type:: Clean-Voided Midstream Performed By: #### U RDS, UHCG, CUU, ADDONUAPLUS #### [facility] [address] [place] [address] [place] Bilirubin,Urine Negative Normal Negative [facility] Comment on above: Order Comment: Name Collection Type:: Clean-Voided Midstream Performed By: #### U RDS, UHCG, CUU, ADDONUAPLUS #### [facility] [address] [place] [address] [place] Color (U) Yellow Normal Yellow [facility] Comment on above: Order Comment: Name Collection Type:: Clean-Voided Midstream Performed By: #### U RDS, UHCG, CUU, ADDONUAPLUS #### [facility] [address] [place] [address] Glucose Ql (U) Normal Normal Normal [facility] Comment on above: Order Comment: Name Collection Type:: Clean-Voided Midstream Performed By: #### U RDS, UHCG, CUU, ADDONUAPLUS #### [facility] [address] [place] [address] Hyaline Casts,Urine 0-8 Normal 0-8 [facility] Comment on above: Order Comment: Name Collection Type:: Clean-Voided Midstream Performed By: #### U RDS, UHCG, CUU, ADDONUAPLUS #### [facility] [address] [place] [address] Ketones Ql (U) 1+ High Negative [facility] Comment on above: Order Comment: Name Collection Type:: Clean-Voided Midstream Performed By: #### U RDS, UHCG, CUU, ADDONUAPLUS #### [facility] [address] [place] [address] Leukocyte esterase Test strip Ql (U) 2+ High Negative [facility] Comment on above: Order Comment: Name Collection Type:: Clean-Voided Midstream Performed By: #### U RDS, UHCG, CUU, ADDONUAPLUS #### [facility] [address] [place] [address] [place] Nitrite,Urine Negative Normal Negative [facility] Comment on above: Order Comment: Name Collection Type:: Clean-Voided Midstream Performed By: #### U RDS, UHCG, CUU, ADDONUAPLUS #### [facility] [address] [place] [address] [place] Occult Blood,Urine Negative Normal Negative [facility] Comment on above: Order Comment: Name Collection Type:: Clean-Voided Midstream Performed By: #### U RDS, UHCG, CUU, ADDONUAPLUS #### [facility] [address] [place] [address] [place] pH (U) 5.5 [pH] Normal 5.0-9.0 [facility] Comment on above: Order Comment: Name Collection Type:: Clean-Voided Midstream Performed By: #### U RDS, UHCG, CUU, ADDONUAPLUS #### [facility] [address] [place] [address] Protein,Urine Negative Normal Negative [facility] Comment on above: Order Comment: Name Collection Type:: Clean-Voided Midstream Performed By: #### U RDS, UHCG, CUU, ADDONUAPLUS #### [facility] [address] [place] [address] RBC,Urine 5-9 High 0-4 [facility] Comment on above: Order Comment: Name Collection Type:: Clean-Voided Midstream Performed By: #### U RDS, UHCG, CUU, ADDONUAPLUS #### [address] Specificy [place],Urine 1.025 Normal 1.001-1.03 0 [facility] Comment on above: Order Comment: Name Collection Type:: Clean-Voided Midstream Performed By: #### U RDS, UHCG, CUU, ADDONUAPLUS #### [facility] [address] [place] [address] Squamous Epithelial Cell,Urine 3-4 High 0-2 [facility] Comment on above: Order Comment: Name Collection Type:: Clean-Voided Midstream Performed By: #### U RDS, UHCG, CUU, ADDONUAPLUS #### [facility] [address] [place] [address] Urobilinogen,Urine Normal Normal Normal [facility] Comment on above: Order Comment: Name Collection Type:: Clean-Voided Midstream Performed By: #### U RDS, UHCG, CUU, ADDONUAPLUS #### [facility] [address] [place] [address] [place] WBC,Urine 10-19 High 0-4 [facility] Comment on above: Order Comment: Name Collection Type:: Clean-Voided Midstream Performed By: #### U RDS, UHCG, CUU, ADDONUAPLUS #### [facility] [address] [place] [address] [place] Drug Screen,Urineon 07-05-20 23 Amphetamine Screen,Urine Negative Normal Negative [facility] Comment on above: Performed By: #### U RDS, UHCG, CUU, ADDONUAPLUS #### [facility] [address] [place] [address] Barbiturate Screen,Urine Negative Normal Negative [facility] Comment on above: Performed By: #### U RDS, UHCG, CUU, ADDONUAPLUS #### [facility] [address] [place] [address] Benzodiazepines Screen,Urine Negative Normal Negative [facility] Comment on above: Performed By: #### U RDS, UHCG, CUU, ADDONUAPLUS #### [address] Cannabinoid Screen,Urine Positive High Negative [facility] Comment on above: Result Comment: Thes e are unconfirmed results and should not be used for legal purposes. Drug Cut-Off Concentration: AMPH 1000 ng/mL SEEMA 200 ng/mL LAZ 200 ng/mL COCM 300 ng/mL OP 300 ng/mL PCP 25 ng/mL THC 20 ng/mL PERFORMED BY: [place] [address] PATHOLOGIST CIRCULATING PROCESS INSPECTOR MALVIN MEDLEY M.D. Performed By: #### U RDS, UHCG, CUU, ADDONUAPLUS #### [facility] [address] [place] [address] [place] Cocaine Screen,Urine Negative Normal Negative [facility] Comment on above: Performed By: #### U RDS, UHCG, CUU, ADDONUAPLUS #### [facility] [address] [place] [address] [place] Opiate Screen,Urine Negative Normal Negative [facility] Comment on above: Performed By: #### U RDS, UHCG, CUU, ADDONUAPLUS #### [facility] [address] [place] [address] [place] Phencyclidine Screen,Urine Negative Normal Negative [facility] Comment on above: Performed By: #### U RDS, UHCG, CUU, ADDONUAPLUS #### [facility] [address] [place] [address] [place] ECG 12 lead ECGon 12-19-2022 ECG 12 lead ECG [facility] [address] [place] [address] [place] [address] Electrocardiograph Report Signed Patient: Zuleika Wyatt MR#: [id number] : 1990 Acct:[id number] Age/Sex: 32 / F ADM Date: 12/19/22 Loc: Room: [address] [place] [address] Type: DIS INOo Attending Dr: Arden Orozco [...] ECGs available Confirmed by OSCAR POE DO ([id number]) on 12/19/2022 10:18:39 PM Referred By: Electronically Signed By:OSCAR POE DO Transcribed By: MUS Signed By Oscar Poe DO 12/19 [facility] Electrolyteson 12-19-2022 Anion gap [Moles/Vol] 14.5 mmol/L Normal 6.0-15.0 [facility] Comment on above: Performed By: #### C BC, CREAT, GLU, LYTES, AST, ETOH, BARB, LIPASE, CK, BUN ####[facility] [id number] [place] [id number] [place] Chloride [Moles/Vol] 105 mmol/L Normal 98-107 [facility] Comment on above: Performed By: #### C BC, CREAT, GLU, LYTES, AST, ETOH, BARB, LIPASE, CK, BUN ####[facility] [id number] [place] [id number] [facility] CO2 [Moles/Vol] 20.0 mmol/L Low 21.0-31.0 [facility] Comment on above: Performed By: #### C BC, CREAT, GLU, LYTES, AST, ETOH, BARB, LIPASE, CK, BUN ####[place] [id number] Potassium [Moles/Vol] 3.5 mmol/L Normal 3.5-5.1 [facility] Comment on above: Performed By: #### C BC, CREAT, GLU, LYTES, AST, ETOH, BARB, LIPASE, CK, BUN ####[place] [address] Sodium [Moles/Vol] 136 mmol/L Normal 136-[address] [facility] Comment on above: Performed By: #### C BC, CREAT, GLU, LYTES, AST, ETOH, BARB, LIPASE, CK, BUN ####[place] [address] [address] Ethyl Alcohol Profileon Ethanol [Mass/Vol] mg/dL Normal [facility] Comment on above: Performed By: #### C BC, CREAT, GLU, LYTES, AST, ETOH, BARB, LIPASE, CK, BUN ####[address] Percent Ethanol Not performed Normal [facility] Comment on above: Result Comment: PERF ORMED BY: [facility] [address] [place] [address] PATHOLOGIST CIRCULATING PROCESS INSPECTOR MALVIN MEDLEY M.D. Performed By: #### C BC, CREAT, GLU, LYTES, AST, ETOH, BARB, LIPASE, CK, BUN ####[place] [id number] [facility] Glucoseon 12-19-2022 Glucose [Mass/Vol] 93 mg/dL Normal 70-[address] [facility] Comment on above: Result Comment: [facility] Glucose Reference Range is dependent on time and content of last meal. Glucose of more than 200 mg/dL in a nonstressed, ambulatory subject supports the diagnosis of Diabetes Mellitus. ADA recommended reference range Performed By: #### C BC, CREAT, GLU, LYTES, AST, ETOH, BARB, LIPASE, CK, BUN ####[facility] [id number] HCG ( test) IAizai d Ql (U)Ordered By: Oscar Poe on 12-19-2022 HCG ( test) Ql (U) Negative [facility] HCG,Qualitative Serumon 070 HCG,Qualitative Serum Negative Normal Fir [facility] Comment on above: Result Comment: PERF ORMED BY: [place] [address] PATHOLOGIST CIRCULATING PROCESS INSPECTOR MALVIN MEDLEY M.D. Performed By: #### H CGQUAL #### [facility] [address] [place] [address] HCG,Urineon 12-19-2022 Beta HCG ( test) Ql (U) Negative Normal [facility] Comment on above: Order Comment: Name Collection Type:: Clean-Voided Midstream Result Comment: PERF ORMED BY: [place] [address] PATHOLOGIST CIRCULATING PROCESS INSPECTOR MALVIN MEDLEY M.D. Performed By: #### U RDS, UHCG, CUU, ADDONUAPLUS #### [facility] [address] [place] [address] Ketones Auto test strip (U) [Mass/Vol]Ordered By: Oscar Poe on 12-19-2022 Ketones (U) [Mass/Vol] 1+ Negative [facility] Laboratory - UrinalysisOrder ed By: Oscar Poe on 12-19-2022 Hyaline casts LM Ql (Urine sed) 0-8 [LPF] 0-8 [facility] Lipaseon 12-19-2022 Lipase [Catalytic activity/Vol] 29.0 U/L Normal 11.0-82.0 [facility] Comment on above: Result Comment: PERF ORMED BY: [place] [address] PATHOLOGIST CIRCULATING PROCESS INSPECTOR MALVIN MEDLEY M.D. Performed By: #### C BC, CREAT, GLU, LYTES, AST, ETOH, BARB, LIPASE, CK, BUN ####[facility] [id number] [address] Nitrite Test strip Ql (U)Ord ered By: Oscar Poe on 12-19-2022 Nitrite Ql (U) Negative Negative [facility] Opiates [Presence] in Urine by Screen methodOrdered By: Oscar Poe on 12-19-2022 Opiates Screen Ql (U) Negative Negative [facility] Phencyclidine Screen Ql (U)O rdered By: Oscar Poe on 12-19-2022 Phencyclidine Ql (U) Negative Negative [facility] Protein Auto test strip (U) [Mass/Vol]Ordered By: Oscar Poe on 12-19-2022 Protein (U) [Mass/Vol] Negative Negative [facility] Specific gravity Auto test s trip (U) [...] Nom (Bld) Blood group A Rh(D) positive [facility] Comment on above: Result Comment: PERF ORMED BY: [facility] [address] [place] [id number] PATHOLOGIST CIRCULATING PROCESS INSPECTOR MALVIN MEDLEY M.D. Urine Cultureon 12-19-2022 Bacteria identified Cx Nom (U) >100,000 colonies/ml mixed bacterial skin contaminants 2 Days PERFORMED BY: [facility] [address] [place] [address] PATHOLOGIST CIRCULATING PROCESS INSPECTOR MALVIN MEDLEY M.D. [facility] Comment on above: Performed By: #### U RDS, UHCG, CUU, ADDONUAPLUS ####[place] [address] [place] [phone] [facility] Urine bacteria detection by automated methodOrdered By: Oscar Poe on 12-19-2022 Bacteria Auto Ql (U) None seen None Seen [facility] Urine clarity by refractomet ry automatedOrdered By: [...] 12-19-2022 XR knee BI 2V [facility] Main [place] [id number] XRay Report Signed Patient: Zuleika Wyatt MR#: [id number] : 1990 Acct:[id number] Age/Sex: 32 / F ADM Date: 12/19/22 Loc: Room: [address] [place] [address] Type: ADM INOo Attending Dr: Arden Orozco DO Copies to: DO Arden Jefferson DO Ordering Provider: Oscar Poe DO Date of Service: 12/18/22 XR/XR knee BI 2V: f ([id number]) XR/XR chest 1V portable: TRAUMATIC INJURY ([id number]) XR/XR pelvis 1-2V: f ([id number]) XR/XR foot LT 2V: f CLINICAL DATA: [...] Adela Mahan M.D.12/19/2022 10:41 AM Dictation Location: [place] [address] Transcribed By: [facility] 12/19/22 1041 Dictated By: Adela Mahan [...] on 12-18-2022 CO2 [Moles/Vol] 20.0 mmol/L 21.0-31.0 [facility] Chloride [Moles/volume] in S gwendolyn or PlasmaOrdered By: Oscar Poe on 12-18-2022 Chloride [Moles/Vol] 105 mmol/L 98-107 [facility] Choriogonadotropin.beta subu nit [Units/volume] in Serum or PlasmaOrdered By: Oscar Poe on 12-18-2022 HCG.beta subunit Qn Negative [facility] Creatine kinase [Enzymatic a ctivity/volume] in Serum or PlasmaOrdered By: Oscar Poe on 12-18-2022 CK [Catalytic activity/Vol] 50 U/L 30-223 [facility] Creatinine [Mass/volume] in Serum or PlasmaOrdered By: Oscar Poe on 12-18-2022 Creatinine [Mass/Vol] 0.84 mg/dL 0.60-1.20 [facility] Eosinophils Auto (Bld) [#/Vo l]Ordered By: Oscar [...] 12-18-2022 Ethanol [Mass/Vol] mg/dL [facility] Ethanol [Mass/Vol] TNP [facility] Comment on above: Test not performed Glucose [Mass/volume] in Ser um or PlasmaOrdered By: Oscar Poe on 12-18-2022 Glucose [Mass/Vol] 93 mg/dL 70-[address] [facility] Comment on above: ADA recommended refe [...] 12-18-2022 MCHC (RBC) [Mass/Vol] 32.8 g/dL 32.0-35.0 [facility] MCV Auto (RBC) [Entitic vol] Ordered By: [...] on 12-18-2022 Potassium [Moles/Vol] 3.5 mmol/L 3.5-5.1 [facility] RBC Auto (Bld) [#/Vol]Ordere d By: Oscar Poe on 12-18-2022 RBC (Bld) [#/Vol] 4.42 10*6/uL 3.60-5.00 [facility] Serum or plasma anion gap de terminationOrdered By: Oscar Poe on 12-18-2022 Anion gap [Moles/Vol] 14.5 mmol/L 6.0-15.0 [facility] Sodium [Moles/volume] in Ser um or PlasmaOrdered By: Oscar Poe on 12-18-2022 Sodium [Moles/Vol] 136 mmol/L 136-[address] [facility] Urea nitrogen [Mass/volume] in Serum or PlasmaOrdered By: Oscar Poe on 12-18-2022 Urea nitrogen [Mass/Vol] 21 mg/dL 7-25 [facility] WBC Auto (Bld) [#/Vol]Ordere d By: Oscar Poe on 12-18-2022 WBC (Bld) [#/Vol] 10.3 10*3/uL 3.8-11.6 [facility] PRBC LEUKOREDUCEDon 07-14-19 23 ABO and Rh group Nom (Bld) Cross Match Result Compatible Unit Blood Type A Pos Unit Number [id number] Status Information Released Specimen Exp Date Product ID Red Blood Cells Product Code [id number] Cross Match Result Compatible Unit Blood Type A Pos Unit Number [id number] Status Information Transfused Product ID Red Blood Cells Product Code [id number] Normal [facility] Comment on above: Performed By: #### R UBIGG #### [facility] [address] [place] [address] Dr. Juan Antonio Ibarra CBC AUTO DIFFon 07-07-2022 BASO # 0.0 103/ul Normal 0.0-0.1 [facility] Comment on above: Performed By: #### A 1C #### [facility] [address] [place] [address] Dr. Juan Antonio Ibarra Basophils/100 WBC (Bld) 0.3 % Normal 0.2-2.0 [facility] Comment on above: Performed By: #### A 1C #### [facility] [address] [place] [address] Dr. Juan Antonio Ibarra EO # 0.1 103/ul Normal 0.0-0.7 [facility] Comment on above: Performed By: #### A 1C #### [facility] [address] [place] [address] Dr. Juan Antonio Ibarra Eosinophils/100 WBC (Bld) 0.9 % Normal 0.9-7.0 [facility] Comment on above: Performed By: #### A 1C #### [facility] [address] [place] [address] Dr. Juan Antonio Ibarra Erythrocyte distribution width (RBC) [Ratio] 14.5 % Normal 11.0-15.0 [facility] Comment on above: Performed By: #### A 1C #### [facility] [address] [place] [address] Dr. Juan Antonio Ibarra Hematocrit (Bld) [Volume fraction] 22.5 % Critically low 36.0-48.0 [facility] Comment on above: Performed By: #### A 1C #### [facility] [address] [place] [address] Dr. Juan Antonio Ibarra Hemoglobin (Bld) [Mass/Vol] 7.9 g/dL Critically low 12.0-16.0 [facility] Comment on above: Performed By: #### A 1C #### [facility] [address] [place] [address] Dr. Juan Antonio Ibarra IG # 0.10 10e3/ul Critically high 0.00-0.03 [facility] Comment on above: Performed By: #### A 1C #### [facility] [address] [place] [address] Dr. Juan Antonio Ibarra IG % 0.9 % Critically high 0.0-0.5 [facility] Comment on above: Performed By: #### A 1C #### [facility] [address] [place] [address] Dr. Juan Antonio Ibarra LYMPH # 1.6 103/ul Normal 1.2-3.8 [facility] Comment on above: Performed By: #### A 1C #### [facility] [address] [place] [address] Dr. Juan Antonio Ibarra Lymphocytes/100 WBC (Bld) 14.0 % Critically low 20.5-60.0 [facility] Comment on above: Performed By: #### A 1C #### [facility] [address] [place] [address] Dr. Juan Antonio Ibarra MANUAL DIFF REQ NO Normal [facility] Comment on above: Performed By: #### A 1C #### [facility] [address] [place] [address] Dr. Juan Antonio Ibarra MCH (RBC) [Entitic mass] 26.4 pg Critically low 26.7-34.0 [facility] Comment on above: Performed By: #### A 1C #### [facility] [address] [place] [address] Dr. Juan Antonio Ibarra MCHC (RBC) [Mass/Vol] 35.1 g/dL Normal 29.9-35.2 [facility] Comment on above: Performed By: #### A 1C #### [facility] [address] [place] [address] Dr. Juan Antonio Ibarra MCV (RBC) [Entitic vol] 75.3 fL Critically low 81.0-99.0 [facility] Comment on above: Performed By: #### A 1C #### [facility] [address] [place] [address] Dr. Juan Antonio Ibarra MONO # 0.7 103/ul Normal 0.3-0.8 [facility] Comment on above: Performed By: #### A 1C #### [facility] [address] [place] [address] Dr. Juan Antonio Ibarra Monocytes/100 WBC (Bld) 6.2 % Normal 1.7-12.0 [facility] Comment on above: Performed By: #### A 1C #### [facility] [address] [place] [address] Dr. Juan Antonio Ibarra NEUT # 9.1 103/ul Critically high 1.4-6.5 [facility] Comment on above: Performed By: #### A 1C #### [facility] [address] [place] [address] Dr. Juan Antonio Ibarra Neutrophils/100 WBC (Bld) 77.7 % Critically high 43.0-75.0 [facility] Comment on above: Performed By: #### A 1C #### [facility] [address] [place] [address] Dr. Juan Antonio Ibarra Platelet mean volume (Bld) [Entitic vol] 9.2 fL Critically low 9.5-13.5 [facility] Comment on above: Performed By: #### A 1C #### [facility] [address] [place] [address] Dr. Juan Antonio Ibarra PLT 143 103/ul Critically low 150-450 [facility] Comment on above: Performed By: #### A 1C #### [facility] [address] [place] [address] Dr. Juan Antonio Ibarra RBC 2.99 106/ul Critically low 4.20-5.40 [facility] Comment on above: Performed By: #### A 1C #### [facility] [address] [place] [address] Dr. Juan Antonio Ibarra WBC 11.7 103/ul Critically high 4.0-11.0 [facility] Comment on above: Performed By: #### A 1C #### [facility] [address] [place] [address] Dr. Juan Antonio Ibarra CBC AUTO DIFFon 07-06-2022 BASO # 0.0 103/ul Normal 0.0-0.1 [facility] Comment on above: Performed By: #### A 1C #### [facility] [address] [place] [address] Dr. Juan Antonio Ibarra Basophils/100 WBC (Bld) 0.3 % Normal 0.2-2.0 [facility] Comment on above: Performed By: #### A 1C #### [facility] [address] [place] [address] Dr. Juan Antonio Ibarra EO # 0.1 103/ul Normal 0.0-0.7 [facility] Comment on above: Performed By: #### A 1C #### [facility] [address] [place] [address] Dr. Juan Antonio Ibarra Eosinophils/100 WBC (Bld) 0.8 % Critically low 0.9-7.0 [facility] Comment on above: Performed By: #### A 1C #### [facility] [address] [place] [address] Dr. Juan Antonio Ibarra Erythrocyte distribution width (RBC) [Ratio] 14.3 % Normal 11.0-15.0 [facility] Comment on above: Performed By: #### A 1C #### [facility] [address] [place] [address] Dr. Juan Antonio Ibarra Hematocrit (Bld) [Volume fraction] 23.0 % Critically low 36.0-48.0 [facility] Comment on above: Performed By: #### A 1C #### [facility] [address] [place] [address] Dr. Juan Antonio Ibarra Hemoglobin (Bld) [Mass/Vol] 7.5 g/dL Critically low 12.0-16.0 [facility] Comment on above: Performed By: #### A 1C #### [facility] [address] [place] [address] Dr. Juan Antonio Ibarra IG # 0.07 10e3/ul Critically high 0.00-0.03 [facility] Comment on above: Performed By: #### A 1C #### [facility] [address] [place] [address] Dr. Juan Antonio Ibarra IG % 0.6 % Critically high 0.0-0.5 [facility] Comment on above: Performed By: #### A 1C #### [facility] [address] [place] [address] Dr. Juan Antonio Ibarra LYMPH # 2.1 103/ul Normal 1.2-3.8 [facility] Comment on above: Performed By: #### A 1C #### [facility] [address] [place] [address] Dr. Juan Antonio Ibarra Lymphocytes/100 WBC (Bld) 18.8 % Critically low 20.5-60.0 [facility] Comment on above: Performed By: #### A 1C #### [facility] [address] [place] [address] Dr. Juan Antonio Ibarra MANUAL DIFF REQ NO Normal [facility] Comment on above: Performed By: #### A 1C #### [facility] [address] [place] [address] Dr. Juan Antonio Ibarra MCH (RBC) [Entitic mass] 26.0 pg Critically low 26.7-34.0 [facility] Comment on above: Performed By: #### A 1C #### [facility] [address] [place] [address] Dr. Juan Antonio Ibarra MCHC (RBC) [Mass/Vol] 32.6 g/dL Normal 29.9-35.2 [facility] Comment on above: Performed By: #### A 1C #### [facility] [address] [place] [address] Dr. Juan Antonio Ibarra MCV (RBC) [Entitic vol] 79.9 fL Critically low 81.0-99.0 [facility] Comment on above: Performed By: #### A 1C #### [facility] [address] [place] [address] Dr. Juan Antonio Ibarra MONO # 0.7 103/ul Normal 0.3-0.8 [facility] Comment on above: Performed By: #### A 1C #### [facility] [address] [place] [address] Dr. Juan Antonio Ibarra Monocytes/100 WBC (Bld) 6.6 % Normal 1.7-12.0 [facility] Comment on above: Performed By: #### A 1C #### [facility] [address] [place] [address] Dr. Juan Antonio Ibarra NEUT # 8.2 103/ul Critically high 1.4-6.5 [facility] Comment on above: Performed By: #### A 1C #### [facility] [address] [place] [address] Dr. Juan Antonio Ibarra Neutrophils/100 WBC (Bld) 72.9 % Normal 43.0-75.0 [facility] Comment on above: Performed By: #### A 1C #### [facility] [address] [place] [address] Dr. Juan Antonio Ibarra Platelet mean volume (Bld) [Entitic vol] 9.8 fL Normal 9.5-13.5 [facility] Comment on above: Performed By: #### A 1C #### [facility] [address] [place] [address] Dr. Juan Antonio Ibarra PLT 151 103/ul Normal 150-450 [facility] Comment on above: Performed By: #### A 1C #### [facility] [address] [place] [address] Dr. Juan Antonio Ibarra RBC 2.88 106/ul Critically low 4.20-5.40 [facility] Comment on above: Performed By: #### A 1C #### [facility] [address] [place] [address] Dr. Juan Antonio Ibarra WBC 11.3 103/ul Critically high 4.0-11.0 [facility] Comment on above: Performed By: #### A 1C #### [facility] [address] [place] [address] Dr. Juan Antonio Ibarra CBC AUTO DIFFon 07-05-2022 BASO # 0.0 103/ul Normal 0.0-0.1 [facility] Comment on above: Performed By: #### R PRQ #### [facility] [address] [place] [address] Dr. Juan Antonio Ibarra Basophils/100 WBC (Bld) 0.2 % Normal 0.2-2.0 [facility] Comment on above: Performed By: #### R PRQ #### [facility] [address] [place] [address] Dr. Juan Antonio Ibarra EO # 0.0 103/ul Normal 0.0-0.7 [facility] Comment on above: Performed By: #### R PRQ #### [facility] [address] [place] [address] Dr. Juan Antonio Ibarra Eosinophils/100 WBC (Bld) 0.4 % Critically low 0.9-7.0 [facility] Comment on above: Performed By: #### R PRQ #### [facility] [address] [place] [address] Dr. Juan Antonio Ibarra Erythrocyte distribution width (RBC) [Ratio] 14.2 % Normal 11.0-15.0 [facility] Comment on above: Performed By: #### R PRQ #### [facility] [address] [place] [address] Dr. Juan Antonio Ibarra Hematocrit (Bld) [Volume fraction] 31.0 % Critically low 36.0-48.0 [facility] Comment on above: Performed By: #### R PRQ #### [facility] [address] [place] [address] Dr. Juan Antonio Ibarra Hemoglobin (Bld) [Mass/Vol] 10.1 g/dL Critically low 12.0-16.0 [facility] Comment on above: Performed By: #### R PRQ #### [facility] [address] [place] [address] Dr. Juan Antonio Ibarra IG # 0.10 10e3/ul Critically high 0.00-0.03 [facility] Comment on above: Performed By: #### R PRQ #### [facility] [address] [place] [address] Dr. Juan Antonio Ibarra IG % 1.1 % Critically high 0.0-0.5 [facility] Comment on above: Performed By: #### R PRQ #### [facility] [address] [place] [address] Dr. Juan Antonio Ibarra LYMPH # 1.6 103/ul Normal 1.2-3.8 [facility] Comment on above: Performed By: #### R PRQ #### [facility] [address] [place] [address] Dr. Juan Antonio Ibarra Lymphocytes/100 WBC (Bld) 17.5 % Critically low 20.5-60.0 [facility] Comment on above: Performed By: #### R PRQ #### [facility] [address] [place] [address] Dr. Juan Antonio Ibarra MANUAL DIFF REQ NO Normal [facility] Comment on above: Performed By: #### R PRQ #### [facility] [address] [place] [address] Dr. Juan Antonio Ibarra MCH (RBC) [Entitic mass] 25.8 pg Critically low 26.7-34.0 [facility] Comment on above: Performed By: #### R PRQ #### [facility] [address] [place] [address] Dr. Juan Antonio Ibarra MCHC (RBC) [Mass/Vol] 32.6 g/dL Normal 29.9-35.2 [facility] Comment on above: Performed By: #### R PRQ #### [facility] [address] [place] [address] Dr. Juan Antonio Ibarra MCV (RBC) [Entitic vol] 79.3 fL Critically low 81.0-99.0 [facility] Comment on above: Performed By: #### R PRQ #### [facility] [address] [place] [address] Dr. Juan Antonio Ibarra MONO # 0.7 103/ul Normal 0.3-0.8 [facility] Comment on above: Performed By: #### R PRQ #### [facility] [address] [place] [address] Dr. Juan Antonio Ibarra Monocytes/100 WBC (Bld) 8.1 % Normal 1.7-12.0 [facility] Comment on above: Performed By: #### R PRQ #### [facility] [address] [place] [address] Dr. Juan Antonio Ibarra NEUT # 6.7 103/ul Critically high 1.4-6.5 [facility] Comment on above: Performed By: #### R PRQ #### [facility] [address] [place] [address] Dr. Juan Antonio Ibarra Neutrophils/100 WBC (Bld) 72.7 % Normal 43.0-75.0 [facility] Comment on above: Performed By: #### R PRQ #### [facility] [address] [place] [address] Dr. Juan Antonio Ibarra Platelet mean volume (Bld) [Entitic vol] 10.1 fL Normal 9.5-13.5 [facility] Comment on above: Performed By: #### R PRQ #### [facility] [address] [place] [address] Dr. Juna Antonio Ibarra PLT 202 103/ul Normal 150-450 [facility] Comment on above: Performed By: #### R PRQ #### [facility] [address] [place] [address] Dr. Juan Antonio Ibarra RBC 3.91 106/ul Critically low 4.20-5.40 [facility] Comment on above: Performed By: #### R PRQ #### [facility] [address] [place] [address] Dr. Juan Antonio Ibarra WBC 9.2 103/ul Normal 4.0-11.0 [facility] Comment on above: Performed By: #### R PRQ #### [facility] [address] [place] [address] Dr. Juan Antonio Ibarra DRUG SCREEN RAPID (URINE)on 07-05-2022 AMP Negative Normal NEGATIVE [facility] Comment on above: Performed By: #### A 1C #### [facility] [address] [place] [address] Dr. Juan Antonio Ibarra BAR Negative Normal NEGATIVE [facility] Comment on above: Performed By: #### A 1C #### [facility] [address] [place] [address] Dr. Juan Antonio Ibarra BUP Negative Normal NEGATIVE [facility] Comment on above: Performed By: #### A 1C #### [facility] [address] [place] [address] Dr. Juan Antonio Ibarra BZO Negative Normal NEGATIVE [facility] Comment on above: Performed By: #### A 1C #### [facility] [address] [place] [address] Dr. Juan Antonio Ibarra PARAM Negative Normal NEGATIVE [facility] Comment on above: Performed By: #### A 1C #### [facility] [address] [place] [address] Dr. Juan Antonio Ibarra CUT-OFFS SEE BELOW Normal [facility] Comment on above: Result Comment: AMP [...] ng/mL Performed By: #### A 1C #### [facility] [address] [place] [address] Dr. Juan Antonio Ibarra DRUG CUT HEADER DRUG CLASS TEST SYST EM CUT-OFF CONCENTRATIONS ARE FOLLOWS: Normal [facility] Comment on above: Performed By: #### A 1C #### [facility] [address] [place] [address] Dr. Juan Antonio Ibarra mAMP Negative Normal NEGATIVE [facility] Comment on above: Performed By: #### A 1C #### [facility] [address] [place] [address] Dr. Juan Antonio Ibarra MTD Negative Normal NEGATIVE [facility] Comment on above: Performed By: #### A 1C #### [facility] [address] [place] [address] Dr. Juan Antonio Ibarra OPI Negative Normal NEGATIVE [facility] Comment on above: Performed By: #### A 1C #### [facility] [address] [place] [address] Dr. Juan Antonio Ibarra OXY Negative Normal NEGATIVE [facility] Comment on above: Performed By: #### A 1C #### [facility] [address] [place] [address] Dr. Juan Antonio Ibarra PCP Negative Normal NEGATIVE [facility] Comment on above: Performed By: #### A 1C #### [facility] [address] [place] [address] Dr. Juan Antonio Ibarra PPX Negative Normal NEGATIVE [facility] Comment on above: Performed By: #### A 1C #### [facility] [address] [address] [address] Juan Antonio Ibarra TCA Negative Normal NEGATIVE [facility] Comment on above: Performed By: #### A 1C #### [facility] [address] [place] [address] Dr. Juan Antonio Ibarra THC Negative Normal NEGATIVE [facility] Comment on above: Performed By: #### A 1C #### [facility] [address] [place] [address] Dr. Juan Antonio Ibarra TYPE AND SCREENon 07-05-2022 TYPE AND SCREEN Negative Normal [facility] Comment on above: Performed By: #### T NS #### [facility] [address] [place] [address] Dr. Juan Antonio Ibarra US PREG BIOPHY [...] by: FELECIA GOLDMAN Date: 2022-06-28 15:29 Normal [facility] US PREG BIOPHY W NON STRESSo [...] FELECIA GOLDMAN Date: 2022-06-21 17:20 Normal [facility] US PREG GROWTHon 06-21-2022 US [...] GAMALIEL CRUMP Date: 2022-06-21 13:37 Normal [facility] CULTURE URINEon 06-16-2022 CULTURE URINE Culture Observations : LIGHT GROWTH OF MIXED GENITAL ALONSO. NO POTENTIAL PATHOGENS SEEN. Normal [facility] Comment on above: Performed By: #### U RCX #### [facility] [address] [place] [address] Dr. 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 Juan Antonio Ibarra Clarity (U) CLEAR Normal CLEAR [facility] Comment on above: Performed By: #### U MICRO, UACSIND #### [facility] [address] [address] [address] Juan Antonio Ibarra Color (U) LT. YELLOW Normal YELLOW [facility] Comment on above: Performed By: #### U MICRO, UACSIND #### [facility] [address] [address] [address] Juan Antonio Ibarra Glucose Ql (U) Negative Normal NEGATIVE [facility] Comment on above: Performed By: #### U MICRO, UACSIND #### [facility] [address] [address] [address] Juan Antonio Ibarra Hemoglobin Ql (U) Negative Normal NEGATIVE [facility] Comment on above: Performed By: #### U MICRO, UACSIND #### [facility] [address] [address] [address] Juan Antonio Ibarra Ketones Ql (U) Negative Normal NEGATIVE [facility] Comment on above: Performed By: #### U MICRO, UACSIND #### [facility] [address] [address] [address] Juan Antonio Ibarra LEUKOCYTES MODERATE Abnormal NEGATIVE [facility] Comment on above: Performed By: #### U MICRO, UACSIND #### [facility] [address] [address] [address] Juan Antonio Ibarra Nitrite Ql (U) Negative Normal NEGATIVE [facility] Comment on above: Performed By: #### U MICRO, UACSIND #### [facility] [address] [address] [address] Juan Antonio Ibarra pH (U) 6.0 [pH] Normal 5-9 [facility] Comment on above: Performed By: #### U MICRO, UACSIND #### [facility] [address] [address] [address] Juan Antonio Ibarra SPEC GRAVITY 1.020 Normal 1.005-<=1. 025 [facility] Comment on above: Performed By: #### U MICRO, UACSIND #### [facility] [address] [place] [address] Dr. Juan Antonio Ibarra UA PROTEIN Negative Normal NEGATIVE/ TRACE [facility] Comment on above: Performed By: #### U MICRO, UACSIND #### [facility] [address] [address] [address] Juan Antonio Ibarra UR MICRO IND INDICATED Normal [facility] Comment on above: Performed By: #### U MICRO, UACSIND #### [facility] [address] [address] [address] Juan Antonio Ibarra Urobilinogen Qn (U) 1.0 {Pamela'U}/dL Normal 0.2 - 1. 0 [facility] Comment on above: Performed By: #### U MICRO, UACSIND #### [facility] [address] [address] [address] Juan Antonio Ibarra URINE MICROSCOPIC ONLYon BACTERIA SMALL Abnormal NONE SEEN [facility] Comment on above: Performed By: #### U MICRO, UACSIND #### [facility] [address] [place] [address] Dr. Juan Antonio Ibarra Bacteria identified Cx Nom (U) INDICATED Normal [facility] Comment on above: Performed By: #### U MICRO, UACSIND #### [facility] [address] [place] [address] Dr. Juan Antonio Ibarra CAST NONE SEEN Normal NONE SEEN [facility] Comment on above: Performed By: #### U MICRO, UACSIND #### [facility] [address] [place] [address] Dr. Juan Antonio Ibarra Crystals LM Nom (Urine sed) NONE SEEN Normal NONE SEEN [facility] Comment on above: Performed By: #### U MICRO, UACSIND #### [facility] [address] [place] [address] Dr. Juan Antonio Ibarra Epithelial cells LM Ql (Urine sed) RARE Normal NONE SEEN /RARE [facility] Comment on above: Performed By: #### U MICRO, UACSIND #### [facility] [address] [place] [address] Dr. Juan Antonio Ibarra MUCOUS NONE SEEN Normal NONE SEEN [facility] Comment on above: Performed By: #### U MICRO, UACSIND #### [facility] [address] [place] [address] Dr. Juan Antonio Ibarra RBC NONE SEEN Abnormal 0-2 [facility] Comment on above: Performed By: #### U MICRO, UACSIND #### [facility] [address] [address] [address] Juan Antonio Ibarra WBC 2-5 Abnormal NONE SEEN [facility] Comment on above: Performed By: #### U MICRO, UACSIND #### [facility] [address] [address] [address] Juan Antonio Ibarra GROUP B STREP CULTUREon 05-18 S. agalactiae Ag Ql (Unsp spec) Culture Observations: NEGATIVE FOR GROUP B STREPTOCOCCUS. Normal [facility] Comment on above: Performed By: #### G BSCX #### [facility] [address] [place] [address] Dr. Juan Antonio Ibarra US PREG BIOPHY [...] GAMALIEL CRUMP Date: 2022-06-14 16:10 Normal [facility] US PREG BIOPHY W NON [...] by: FELECIA GOLDMAN Date: 2022-06-07 16:42 Normal [facility] US PREG BIOPHY W NON STRESSo [...] by: FELECIA GOLDMAN Date: 2022-06-04 17:11 Normal [facility] US PREG BIOPHY W NON STRESS [...] by: FELECIA GOLDMAN Date: 2022-06-04 16:23 Normal [facility] US PREG BIOPHY W NON STRESSo [...] by: GAMALIEL CRUMP Date: 2022-05-31 18:39 Normal [facility] US PREG BIOPHY W NON STRESSo [...] FELECIA GOLDMAN Date: 2022-05-24 16:34 Normal [facility] US PREG GROWTHon 05-24-2022 US [...] FELECIA GOLDMAN Date: 2022-05-24 16:33 Normal [facility] GLUCOSE - 1HRon 04-04-2022 Glucose [Mass/Vol] 101 mg/dL Normal 74-106 [facility] Comment on above: Performed By: #### R PRQ #### [facility] [address] [place] [address] Dr. Juan Antonio Ibarra HEMOGRAM AND PLATELon 2021 Hematocrit (Bld) [Volume fraction] 33.5 % Critically low 36.0-48.0 [facility] Comment on above: Performed By: #### A 1C #### [facility] [address] [place] [address] Dr. Juan Antonio Ibarra Hemoglobin (Bld) [Mass/Vol] 10.7 g/dL Critically low 12.0-16.0 [facility] Comment on above: Performed By: #### A 1C #### [facility] [address] [place] [address] Dr. Juan Antonio Ibarra MCH (RBC) [Entitic mass] 29.3 pg Normal 26.7-34.0 [facility] Comment on above: Performed By: #### A 1C #### [facility] [address] [place] [address] Dr. Juan Antonio Ibarra MCHC (RBC) [Mass/Vol] 31.9 g/dL Normal 29.9-35.2 [facility] Comment on above: Performed By: #### A 1C #### [facility] [address] [place] [address] Dr. Juan Antonio Ibarra MCV (RBC) [Entitic vol] 91.8 fL Normal 81.0-99.0 [facility] Comment on above: Performed By: #### A 1C #### [facility] [address] [place] [address] Dr. Juan Antonio Ibarra PLT 179 103/ul Normal 150-450 [facility] Comment on above: Performed By: #### A 1C #### [facility] [address] [place] [address] Dr. Juan Antonio Ibarra RBC 3.65 106/ul Critically low 4.20-5.40 [facility] Comment on above: Performed By: #### A 1C #### [facility] [address] [place] [address] Dr. Juan Antonio Ibarra WBC 9.9 103/ul Normal 4.0-11.0 [facility] Comment on above: Performed By: #### A 1C #### [facility] [address] [place] [address] Dr. Juan Antonio Ibarra US PREG REEVAL [...] by: FELECIA GOLDMAN Date: 2022-03-20 20:55 Normal [facility] US PREG ANATOMY SINGLEon US PREG [...] by: FELECIA GOLDMAN Date: 2022-02-22 16:46 Normal [facility] Coding Summaryon 02-14-2022 Coding Summary HTMLBase 64 MrrnvtghCMz4pNu+PGhlYWQ+PE 9JSSIiO76xmMJscG6PM8bRNJ2F JMHPPPINLN5ORT5djEC6SChdZ6 VybiAv WstizOKsCG69BAl5SDJ3pDtrRQ yguZ3obROjK6x9FpVtZX64oC74 XSbqOOIaQcW7TgZwqnydhOXy G8cwEbMvoONaFdr+PHRhYmxlIH wuJGTeCQajDZMkByRhiTaxKD9h Co3zSNWtVHZveJmznGCqDsCt e3xuRCYuRNmcFQ7wsTpmG2OqvH R4CAAfy6y8Pb43vZG+PHRkIHN0 lJnbZZgxt799PqKxm9eyPJW6 iYSfHBccCVL9H15mh6C9PNKeKE LiKRW5vNK9vU1brHtnsfvzQ3Od cCRdFhO9BXH4mYAbhE5vcWkh wjamyB1oWxa+C89IUE0CRFKSKR 5DHqz1G0LeHwuwbEI+CZ57BAFn PE90cRWalILcr1zirYx3ZnNw HNXdTEY2yVhnBOjhj6MgXMEcX2 2ipCFhq3O1WPHpwToupDWwFtSy wXO7zR9gLXmncyxfl6elualf Qrktg9wgck15yZ41P81lBDwpYV DoYWA6ZPVoSVHqpTstvf4scS5l Ii8+AEwfm5kmd0pjtTa8RhOe TYYoubVrbDllITD9m6BvKo44O6 XmnUcah1CuZnk2cm88qFUtd7E6 kFU2LMvfAPAjmI5pZJbcPiB4 FWIaCxRetI36vMIaGGulYw0vfG mtwKprYU8wOZEnwvymQHBxoC0c TPSusSIdxIleSK9mCPSoiztc o029AdZlAWV0ZXPwkNRgZ9EouD 3vLmZcERKbJQCzH5UkpYUuAEne K293KKihApW4COSsqrIrL7Iy WSDjnOczFxV4x0P6Lg1Uh7Yati gsSNU2ZNlfOAM6YqGdGiAoWtN2 O0EwFaz7ZLZpbCwwWW4bN9Nz HODruzcsiqsdoZL8FYYlLQIphR 67gMKwOXvrGo1qs7P5u924RYBx FOFpyB13Pa9mgAlkYRVajXST zD0cfstms4pwklitFsMdOLWkMZ o9BVt3DOJuoMneCmRcBEB6VkG4 QEX6yGLurZ0blTadjckyfA2k Oyc+T71zpE2yZNG3CTS2rlaxBC DujoSfUZ36XW00F9FcXwvvcMFh bGU+NOTcgtQgvWkhZB9xCvZo g1ynp7AmWNrvB4ViFZShUJrhHh p5UXReHDD3pIX4pO9cQWGrHXqg o6M5xUL6C2JvjwLzac7zs0fa LQEvXTtkD78aaJBjj0H5BTSpxX S3VNFofPsuQlIsmG99Dog+PGNv tTgvu0GtNralp2hul2nxtRy4 ErEjEIZzasPddRsrSQU0o2YdZp 08T70pAYrgQEPoSYXhVYFzBJMq pEynkl6quJ9dOv8+PGNvbCB3 cYD3bW1cUGRtPgY4MJuzM344Zc PckPElLqles0wzt4tnkMk5JrEz IMFyvkFphBydISE4u4HoTe92 F04tOZshOSJqXICfVRYtYGQddQ yeqg0lmV6uHw1+CW0nb5ffzf42 yC11kGQ+WNMsBOJ0vAspGVnk LWArwM1rAHscNqC4NVSqIqAifH 42dHIpZAfiYr0plErazPyzEI6v REKkkojib203WdQmq9anELKp cSVkSEdfJSF9A95aq4T7BXJsFK TrLME4pMQ9sK3xiHlgswkcgCMy oKikrmNwfNfjWQxwSIpmG975 IHRvcDsnPlBhdGllbnQgTmFtZT b7D2QvOfi0MXRorQvcAR1wyLVx IMzuJh4uiLaraCttDD9hPRCv iifnp172JdRnj6flYMWxnJUbZO wmPFH4C30gt8Y2XJMbXKWaGBW2 aRZ5jC4ydBiehipkiPQklVoo kmAkpJmzQDciRKjoP982XSLgjE hgWiWrsvNbZKVkrOB7JG06RE77 aITrg3B6yEU6O8SxPWRsahqv khxenGZ0TVDqYJTbkD84Gn1mgZ evSs9xSNOcKNO4VNHfxNQzK9De iB4yArAeIAUdHFDmD6XnfWBz MSiiP959NVkjRgU0ECJarqEfD3 UfUAZyuAzaDtX7d8Z0Tx8OX4S4 HY15LZ23lQSqs4S3cCO5D9Yh ENGcgdxktaghgZS8YEDqDTEfpV 84Sg6kjDbxIt6mTQOpFVU4RCSo eWAiU3MlnE3nKeTrXDBkSAQi R9JsbTUuMBstB035XHctCfS8GM NorfFgF3EhKEWzcJokJcR2i4L6 Bs5QBFs0ET93TM63tHKxf7C9 aSA8U6HoANZaulvseylukKC7WV KuXMLtuU61Ib7ufDttGk4rQATq NLI2ZAQegENtF3LnaX2tZpGq IRDhIJWoU8ZzaJYuTTcuV769LW srTvT8LXSknzWzF2IoNQXkyJjd HdP0r4O2Et0QEZZpVI75HEP6 zLL0OS20IJ58O1PhMtkhmSKucN U+PHRhYmxlIHdpZHRoPScxMDAl FuYojYciQZ6kCs8sABPoQOGd wTvevDXvZtCiq2ynGNGsLIehYH 5tiEjsG7PjhQZ8QZTdh7t7Vm59 B32aM6BemIQ+SNWytCK1hJR0 mN7fRqUfLkL7IOueP563VeQacZ LsRauyx6ior2jrgMq9PyX7GIGi pfRmyXrsQIC3w9AiHu59C34z IHdpZHRoPSIxNSUiIHZhbGlnbj 9lbL0qNo1+IBPgiCT2aVF4eM4j SbWzHuX5JHthJ966IbIbxSSo Tnuah7azl6vuvZe4EcLqYBLfmx AfcFwmQXJ8h0BuZg54O6KwyIro i3LvJuq1gg69pHTfa2I6rQX4 U1OuJEZyikqigZPtlVrhSF0wRP TxsmswHBXerM7cKNJcQ7a5CjNg UxU1HQthB8OpvfQ7NHQyvTMm DSzfDSV0C86up8O2BNQuAIDcJB B2sUK3mR8wcYkyvwphdJTitHxy zgWceJbfTKeuFVuaO533QXQe aKxdXXJwxF7sSLNhvYOesDecHQ 4wNTBpbjsnPlNURUlOLCBWSVJH RU8QZNHZOGJ0S9QyYfg6AOSw uTfgFL6qfTVrBSwjRa7kuOuffU rxCV0iRNMkobeiYTWsmI0aXGNz jUQsgWmsYF5rBDLdbvsru786 MeCwSWT5PBValRVmK3UmsR6kRr HbOEDoLHKvS5XplLZeBFbkV701 JChbGpS1DBFnjoPlB4ByRUZc mPjjSjZ8w6O6Gh0jWY7tXL1zRY tzAR53DC48hMPcf9Z1bEI5H5Xo DLTibyffdpelrVQ5WELyJXRp rY33jHPqMImiLy4xw5X2a693MX KcGFWxyG49Sg5whRjeTWEzcQGC hC7taefhj0jiesucCkJlYXNj LKw9GGg3SUEntWovYoRzVUN0Zz L1IBI4pBIxeP6xhSprtognmV7j Oyc+UopnMOVpqzR9S4UiVxa4 ECVwtLtvSH3tnIXbZIlvQa2rgY untZkjDY5cGRQtuvxgYIKczR6f HONezCFjbGwnYV5sQFYwlolk f947AhXlUES3SSFvgHCbW3ViiF 5pAjMyJZIeARGdK6PucPFsXJne V037XUiwExB6DRVxgxWkX1Ze FDBjuHzcRwZ0y9K5Ao4VWM4NBJ B8H0VfHwj8DBLfaPzdDH6vbZSo SWkkQq9hkQheeDluSR0hEHJa bldxVNHgzU0zKZRazDUzvSfzQP 7xIVRybklmh537AiSdJQY2YVDa aNKdL2ChbB6qHgAlZGNqWHFg M6IhrVJsUSksA219WDotOrD5AS ZhhbRlQ7EtAUEcaJfnDwL6t9I1 Ly9OHUxptVG+YC03yt13E2Fc PbvlSua7JDBaTLZ6rRP8fE5qZE LaSCkha9R1wLJ8E3WlsySvwy9m s5yjYXVlKItxD64vvSRur7R5 WFEujWC0VNQpjStyPoQudD37Pj c+MZIuuMwqs7MlAbrax0jjd7ir hYv9VqFjYJTuhkYhmNsmACM4 n1DjAf72H34zYTjoQOOrKROhRF XxNLSsbAknoa8ewM0ySk0+PGNv pMI6yBA2sP4bNxSvGpR1FKuy Y973KxEfcDOrKtjgh7fcy9uakC a7JmEuDLEwqsGsgFlwDAE2y8Ej Ki47X5PyqBnuw1PeXre1si28 zRNon3W1aYT1K3DiFBSnohbfrZ WijHfxHH3eIYWlofovBPVtcB3q MUPvX6b9BdJoAkP5QKuhO8Ah fyV8MOUuiAZnNSWduAJXpH1wjn nhm6drzqrhKvNqSZMrRRr7JHn6 KEMebFhuJyOgHWJ1VfQ2SUW4 nZYqfI2vaAlrcrmxuC2fIhn+UG w5v2nckUGbOX7upRG4BQ07VS63 uOYsv6Y9mZK8U9UhJMWfsryy bkajyOP9JXOvGGCdaN85Cc9ecP ytAk2eKFFvJXK2DYZigBQvR4Ky yO0yIeMgZYExKJFvN3LjhVYm YSjmO955VCrrNrA9NAJpyuSyT9 ReVVMwkHhaYlJ6a9Y8Mu9AWY06 LO37QO28xXBxf2F3wJT2C8Uu HRUmwlntcbyczHW0HTQyEGMqeA 80Pb1unVduXh8dZDZtLAV3QSTl yFKwR8ObyI2gSqKgZOXdYYVc L3YcjRNvXKocC062XCsuYbJ6ST SoxqYrF7HnLUHljTeyLnI1y0Z3 Ji5NHr86DF78RI16iSHyk9T5 xCW2G4ShETWtrfyjekfmhJW0HX SbFJEfqB79Bj1ljDnqHu8zUOGt LXN0WODoeRPgY0HzdT2vPwRb WKGzGKDdJ1FnfEQfWVrzV920CZ bmEuI5WXYjjkKiV4ZaTBZjeXuv ZwD9p8V2Cl0AXEvskwv3Q0Ap PjwvdHI+MI76KWJwFR78eTOgzC Qoq1vppLq8KrKpCAAmSUX3fZle AAhef3VsFJAvC01amYJts9I4 IGN (more content not included)... [facility] Coding Summary HTMLBase 64 GtmayafwSWf6iGy+PGhlYWQ+PE 3LQDHrM05bjOFnrU1OP7gHDE7J JFKEBHCRSL9MYW6mbXD8WBemE8 VybiAv RmassZOrAN17BWc6DCS0tPnpGP seaW7ioLWxN6v0NnAbYO91xL66 OBsoKBEtWtK9VkQhugheeOTd D1ovFeFofKZgXpw+PHRhYmxlIH vzJBYlTMajETCrCqJguFvdEM3z Rm5yWZArNKAuaIgvfOGsZzWp h2uoAALvPZhlDJ3nlPmjM6SmqP O0SQMac8j5Ln92tMN+PHRkIHN0 yDgxAYman144FlOsk7rpGPK1 mVGsYXquDDK1W77nv2T1SCNfXJ HqUQF9hFV4mY6rxCtyultuV2Wc uRVyEhW6RHA6uNQqdN6vwSwy elxhtL3pHba+P76HPK3SJOZHNE 0WXog3A6MvOolxiTM+BZ95WHGn BG36rQTdlERnn0nzuNr3FlNz ZVSrOVF2xYicXZybq1ZeMBVgQ5 4eiZXrb4D0MGNtrMyzpZSkAoNw wXT9lD9nNRpevcrto3ridifk Yyyuc9oaza72bQ95P67gHUpbSE VpKWY6XMVbGFWqgMpubk4tzW1y Ii8+AKpao1czz0rvlKt7XpMd OLBqjdWjpObfUWZ9d1QsEy03A9 XybZdow5ZwZoi7ji04dSBiv7P2 sBU7HVbpLBKhdL9cNTmpPzR0 EQKsMqEubP42yXCoBVfcAe6hjG qvwJhcBB5vWCTccqexMGJpdL7t YXWizUSpzXuoUB6cBQPyscjq v252OoFcSTI7WRBsrRKrE8JqbQ 6lCaLqLZHnAZGqT0KgfDDxQPyg Q763VAdvZsL9DTVzotBgD2Gg CAXxkTnuHwO2h8S5Kc2Na4Pymo zkUOG8MBofIMH3VgYrGpIzKyV2 T3XaMtq3PPVvgXeeMH2qS2Jb UDEpwaerprjjqJC3SPGfOAQgjX 48kSPoBCryWa8hr4B5z317UTNr FGAooI01Zt8foKckFPEedQVY hR7wlzwct4uckmdyNnQdFLCfJR u7UXr5EJMjaHxcYqQeRWH2NfM0 BUC2xKWudD3hiQlfbqafuJ4m Oyc+F81vuR8fTPA3JID6ddzlCD AwfzPxNH80FZ21S3UtDxqclRMo bGU+JQHwecQvcRqySN2yZaWz n2htp5JzCRozA2IqQUMdLPofBy f5OBIxKEK6aGS4lL4lXIGrTXiu h4M6kOA5C5NqicNdye2mj7uy TOLdSSemM07kpAHuk0C6VPAnvV L6FBAkgKmbSdUjtY05Liy+PGNv gVpit2WyOpopl3wjk0mnnJo6 QiLnVDOyliLnuNalQZL9o4UfHh 09A65iJLyyYXRcSLVfIWHeWBYs gFcedi9jzI3iFt6+PGNvbCB3 tFX8zB6iKMOwEwC8RAegV712Pl RyvZPjKzrvi4haw5htbKl6BnBj XCSsmmQjeIeuFJY0d5GmWk07 S56uOCieJMSdRPUmMCIiFJIdiH ocoy9qdQ6hUe6+IV6ww1fonf53 iD26rCA+FRDkSFD0uRctTHox HQWyjV3yNQvtChK3SAKhMyEkkV 38zCSeIGykIb0ncLwdrNlfBK6a JODkodogc765UtLso7pnNSJk pTTiDJthBYT5O70wu1J3DZDhSJ NmQWV3qWB7tR9taBqhqazwqGCa gYsrmgZddVrhJIqyTKolN329 IHRvcDsnPlBhdGllbnQgTmFtZT n9F2EdVos3OXEqhIbrJS5fxEDe YRvgHs9yuOhzjEblCV9tKPUf afpbl864TtDtl0xpUZAqeSMbNR iuVCK0C48ud9W7GQZjOQOyWBL2 zDS2lM5pqOcbbdoarFQmnKag pmQzwGjkXWuqYJjdK771HJPywW fvHnEbvzCqNMWkwKN2RB91SY84 zVGqf8U9dIM2F7WyJKKxpjmj kjsihIO2KWGzLBYuqW05Lk8jtE ykKo1gQHSgJNR5XRTzqFWyL0Wf mL5tOmAbREQvVBOjL7HbmNBr RVgsL610DJkxHfK9ETLtkcAdD5 LaRJPhoNdxSoO0s1J5Nd6XM1R3 TA13SL56oJQlz1Y3vDS1N3En KWVragdnpybnvNJ9JCPiYSBcoK 48Ea5zfBekKd0jITWgMBK8ONVn lNZbN8UmnZ5hObNfZKYjNCXb M8AnqARlREzvD786IUijOiB6GD YsbfXzA6ZdITSalDlfJiI9t6E4 Pb5TYRy8TM93CD40hZFir3J4 vWN1N3WkMFQidqzuwdadzJS9YK XsDCRzxW71Aw7rtYqtVu2nPGVg XEN5OFCtzTDzA6UrwR1cPpRt GBQiLZSrR3MqsNLuCJzeX877NF pcIlZ6JYIsimNoY3EeJMFchVgz EqF6v7J8Jl9VHKHxVP95JFR2 tMD8WV88CD75U0BaXjrudNRhrJ U+PHRhYmxlIHdpZHRoPScxMDAl AgDmiZbyPM8pCo9qJTItZOCr rAnytDCcWiBol9cxEUXeRJovUO 4cvVgwZ6FjcIU1IVQpv5q3Gn78 D15wQ8YdaHL+JZMhnUA0mCZ9 sP3mMfSpByT0DKayZ497HqPvnG SoDtcul4hcw3qwyJb2QaB4ISWu tqJawBkqNOH3x5VeFu62G81t IHdpZHRoPSIxNSUiIHZhbGlnbj 0kiC1zVs3+YZKwqTA6eVF9xI2r ZfYoBgV9MLyhE773DyFytILv Ecxsz7huq2mcxKh9TxYaVUDlec QldIpzKVH7t8ZmTw69R6KqcHuc v2UbDni4jz86eISuk2D4fTZ5 Z0HlGBGiptvvjQYtoJixXC7pSA SerdnfMTTknK4oWPNtO9k4UgJr LjL7ZPnhY6EwpsW8TCGrtQDw NRbyFSZ1N55ga3C4JFKaUMHoWT W2xLO3iD9emKfxjoxzmZIqbMzw urHewUsgLKrzGItaA314IEBn fAeeKUMtgG8uEYFjuRMrrXwqXE 4wNTBpbjsnPlNURUlOLCBWSVJH UI3LBSWKSJW8H2LpIir2ATUv iJnyDP3wkCIjLEzcKb2njPjehE qiQG3yFFMkgbbpGZOssB4pXLBo gBWupWpkCM9wSIZoleffn289 AxEjSSR4IFKfqBHiH6XeyB4cQi SqGDOtDGReS5YfvATqFAhpW201 CCidHaQ2URKialFtE7UcSNPg dUuvQvM6w8B2Qn5nDZ2iKV7fOG igXS03DJ12lLVga8G6rNR5M7Xv BESzouzfbmitaVU7IJIoFZDe fU95sNWbDNojEu0yo4I7f844XG TrWRZtbU58Jp1vzYlgWSAidMGL qT4ucpytx3avwgacScCtATMg LBd3UJz2YOXbjMviFbVcZMK9Zd I9SFW2kDUeeP7tlLlidqhopC9c Oyc+ArmkVWXedoU7L3LaGsa0 NKZlgRtfIB5prWIbLRqaKo0gpW yjvEihPY3pCVHnaaqtQEMstC0w LZCorGCovWseYL2pWHNeghxh f087YxNiSQG1IFJynRLfS4SojU 8cBlChIAGmZONxE9ZynNGaTDbs A025EEhoLyW7EYZltaYkN7Ni NQUvnMsqWmX6v8T9Yl5TNB1AJA Z6C7ZlBnd1GIBqfCisSS8umGNd HNxlJj4yyYqhyPglOB4aBVUp qhubEMOrbR5oLTDalFUfkRplLN 8xWHFteinvd602GdRxXNN5KCXy oZRnA3QwoQ8qUqHvRGJgSSZo U5GnbDHxXMymL585RRijZnO1IU IppkXuY1FaWXQtuSqyIdM6l7C3 Xg0ZlHRdM7LgU6t2S1BxIkme dHI+TR96CDWyCJ39wBBrpJLze7 ajxPf5VkOwDOEpITV8aLsvRLjb f7CgLAWkX48vwPUko1T8HRKg yRdieVRzGvCnrVI2zE6aCXdorj qbu2avmgwjTctcc2mrui32bG82 K06hCHnvDOOlWCFoNJQeUTYz iHplca0uyD5mGf9+BDJtoNB6aW K9tQ2qVvHnVeE6QUftZ977BpLa zPMzUrucj6jbe7wkmKu8AmNa URSvxzIflJksYMD9n1DiIs64U4 9sIHdpZHRoPSIyMCUiIHZhbGln bc1plE7oAd4+DW9br3ciri04 uC14qRV+HXFfKOT9zWkjBKhiLX JxzX4mMZscRaV1MFEwQxGfaC92 sVHcIIlcNy0wdDfwkMagHP6j UDJkhsvoj442LlIje0wkISIdmT OmHZjbJJF5L89bz3M0LIHpCOYy ZZT1eZU8hK2fjJjuqzbdmYMd gYjtyeTteKleAPexQWwcS247NE CciRjrRzJqhAGsE5npawABFD1q OjwvdGQ+FISvKAO4aBxlNGik LVGotZ6hYJGqW0d0ErPdRwX8HD efU9DxqgH2IEFtnSVvUQQvyRFM pM9fywnpy8vmbcenGlInMPFq TVo0CHf2PXCypYfbExXbMMM8Zc Q4CUN3eBQmzC8krLvakkadqF5y Oyc+RklOOjwvdGQ+PHRkIHN0 nMinHMreDETrjM8nGKEaI4w9Ln CaQqU2WKubQ2KnrcV8FXMvkJPj SYFhwBNBwE8yqzank3tfsotg HzUmYDWjFZs7CCc1TJLcsWyxFd MfCTW8FrZ3MCA9jSQjgP8rlFcp hvfuuZ3tSjq+TVJOOjwvdGQ+ EYMsQYD9lAuvONglSEHooZ2kFP CjG7b6UoBvJnW4YCqzX2AvleR0 LRRdgUMgNXYueWIErG4kbhxv u0drjwyxWdLaOFGqUAr1ZLk9DO DmgKkgAcGgQYV6FzN5JOE7mZCj iA3yfJjangtjgY8wZsa+UGF5 TEG2EX59ZJ64W4EuKgevjCTooG U+PHRhYmxlIHdpZHRoPScxMDAl SpUnyOnpMG3aGo5oGPEqPUKq bGx (more content not included)... Normal [facility] CHLAMYDIA/GONOCOCCUS RAINER ( AB/URINE/PAPon 02-09-2022 Chlamydia trachomatis, RAINER Negative Normal Negative [facility] Comment on above: Performed By: #### R PRQ #### [facility] [address] [address] [address] Juan Antonio Ibarra Neisseria gonorrhoeae, RAINER Negative Normal Negative [facility] Comment on above: Performed By: #### R PRQ #### [facility] [address] [address] [address] Juan Antonio Ibarra AFP MATERNAL FOR SPINA BIFID Aon 02-08-2022 AFP MoM 1.41 Normal [facility] Comment on above: Performed By: #### A FPMAT #### [facility] [address] [address] [address] Juan Antonio Ibarra AFP Value 66.8 ng/mL Normal [facility] Comment on above: Performed By: #### A FPMAT #### [facility] [address] [address] [address] Juan Antonio Ibarra AFP, Serum for Spina Bifida Report Normal [facility] Comment on above: Performed By: #### A FPMAT #### [facility] [address] [address] [address] Juan Antonio Ibarra Comment Comment Normal [facility] Comment on above: Result Comment: Melchor Chaudhary, Ph.D., [facility] Director . References: Available Upon Request. . Multiples Of Median Cutoffs For AFP Elevations Briscoe 2.5 Black 2.8 IDD 2.0 Twins 4.5 Abbreviation Definitions IDD - Insulin Dep Diabetes OSBR - Open Spina Bifida Risk . For further inquiries contact [employer] at [phone]. . This test was developed and its performance characteristics determined by [employer]. It has not been cleared or approved by the Food and Drug Administration. Performed By: #### A FPMAT #### [facility] [address] [address] [address] Juan Antonio Ren Age Collection Date 18.3 weeks Normal [facility] Comment on above: Performed By: #### A FPMAT #### [facility] [address] [address] [address] Juan Antonio Ibarra Gestat, Age Based on LMP Normal [facility] Comment on above: Result Comment: Reca lculations are not recommended when gestational dating by LMP and ultrasound are within 10 days. Performed By: #### A FPMAT #### [facility] [address] [place] [address] Dr. Juan Antonio Ibarra Insulin Dep Diabetes No Normal [facility] Comment on above: Performed By: #### A FPMAT #### [facility] [address] [place] [address] Dr. Juan Antonio Ibarra Interpretation Comment Normal [facility] Comment on above: Result Comment: Inte [...] Customer Services to discuss available options. The [place] [employer] recommends amniocentesis be offered to women age 35 and older. Performed By: #### A FPMAT #### [facility] [address] [place] [address] Dr. Juan Antonio Ibarra [age] Normal [facility] Comment on above: Performed By: #### A FPMAT #### [facility] [address] [place] [address] Dr. Juan Antonio Ibarra Multiple Gestation No Normal [facility] Comment on above: Performed By: #### A FPMAT #### [facility] [address] [address] [address] Juan Antonio Ibarra OSBR Risk 1 IN 3501 Normal [facility] Comment on above: Performed By: #### A FPMAT #### [facility] [address] [address] [address] Juan Antonio Ibarra PDF . Normal [facility] Comment on above: Performed By: #### A FPMAT #### [facility] [address] [address] [address] Juan Antonio Ibarra Race Normal [facility] Comment on above: Performed By: #### A FPMAT #### [facility] [address] [place] [address] Dr. Juan Antonio Ibarra Test Results: Negative Normal [facility] Comment on above: Performed By: #### A FPMAT #### [facility] [address] [place] [address] Dr. Juan Antonio Ibarra VAGINITIS/VAGINOSIS DNA PROB Abdirashid 02-08-2022 Bettye species Negative Normal Negative [facility] Comment on above: Performed By: #### A 1C #### [facility] [address] [place] [address] Dr. Juan Antonio Ibarra Gardnerella vaginalis Negative Normal Negative [facility] Comment on above: Performed By: #### A 1C #### [facility] [address] [place] [address] Dr. Juan Antonio Ibarra Trichomonas vaginalis Negative Normal Negative [facility] Comment on above: Performed By: #### A 1C #### [facility] [address] [place] [address] Dr. Juan Antonio Ibarra ABO and Rh group post transf usion reaction Nom (Bld)Ordered By: Eleazar Hess on 02-06-2022 Microscopic observation Gram stain Nom (Unsp spec) [facility] ED Clinical Summaryon 2021 ED Clinical Summary [facility] Emergency Department [address] [place] [address] ED Clinical Summary PERSON INFORMATION Name: ZULEIKA WYATT Age: 31 Years Sex: FEMALE : 1990 MRN: Acct#: Visit Reason: Rash; Medical problem - minor; POSS BODY INFECTION Arrival: 01/29/2022 20:27:46 Discharge: 01/29/2022 21:17:00 LOS: 000 00:50 Check In: 01/29/2022 20:27:46 Checkout:01/29/2022 21:17:00 Address: [address] [place] [address] [address] [facility] [address] PCP: Andie Stoddard PROVIDER INFORMATION Provider Role [...] follow-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 To this they agreed.. Health Status [...] Current Fr (more content not included)... Normal [facility] ED Note - Physicianon 2021 [...] follow-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 To this they agreed.. Health Status [...] Once. Impression and Plan Diagnosis Sebaceous cyst ([id number] L72.3, Discharge, Medical) Plan Condition: Unchanged. Disposition: Discharged: time 01/29/2022 20:59:00. Prescriptions: Launch prescripti (more content not included)... Normal [facility] ED Patient Summaryon 022 ED Patient Summary [facility] - Emergency Department [address] [place] [address] PATIENT DISCHARGE INSTRUCTIONS Patient Information Name: ZULEIKA WYATT Age: 31 Years Date of : 1990 Reason For Visit: Rash; Medical problem - minor; POSS BODY INFECTION Arrival Time: 01/29/2022 20:27:46 Primary Care Physician: Andie Stoddard Attending Physician: Johnson Wright DO Comment: Visit Diagnosis: Diagnoses This Visit Medical problem - minor ([id number]) Rash ([id number]) Sebaceous cyst (L72.3) The Pharmacy at [facility] is open Saturday through Saturday [...] and/or drug addiction problems; contact the [facility] 07/01 Crisis Hotline -Text 4HFLO tt [phone]. If you received any narcotics, sedation, or [...] legal documents With: Address: When: Andie Wyatt [facility] [place] [address] Business (1) Within 3 to [...] to return anytime. Call Dr Wright, ext [phone], if any question patric WRIGHT< ER PHYSICIAN< H B [facility] Medication Information: The exam and treatment you received today in the [facility] Emergency Department were for an urgent problem and are not intended as complete care. It is important for you to follow up with a doctor, nurse practitioner, or physician?s admissions assistant for ongoing care. If your symptoms [...] so we can reach you if necessary. [facility] Emergency Department has provided you with a complete list of medications post discharge. Please inform your warehouse attendant/provider of your visit and for further instruction [...] Epidermoid Cyst (more content not included)... Normal [facility] TYPE AND SCREENon 12-30-2021 TYPE AND SCREEN Antibody Screen NEGA TIVE Blood Bank Notes performed by CV on 12/26/2021 ABO Rh Typing A Rh Positive Blood Bank Notes performed by CV on 12/26/2021 Normal [facility] Comment on above: Performed By: #### R UBIGG #### [facility] [address] [place] [address] Dr. Juan Antonio Ibarra HEP B SURFACE ANTIGEN SCREEN on 12-28-2021 HBsAg Screen Negative Normal Negative [facility] Comment on above: Performed By: #### H BSANS #### [facility] [address] [address] [address] Juan Antonio Ibarra HEPATITIS C VIRUS AB W/ REFL EX QUANTon 12-28-2021 HCV AB 0.2 s/co ratio Normal 0.0-0.9 [facility] Comment on above: Performed By: #### A 1C #### [facility] [address] [place] [address] Dr. Juan Antonio Ibarra Interpretation: Comment Normal [facility] Comment on above: Result Comment: Nega tive Not infected with HCV, unless recent infection is suspected or other evidence exists to indicate HCV infection. Performed By: #### A 1C #### [facility] [address] [place] [address] Dr. Juan Antonio Ibarra HIV 1 AND 2 WITH REFLEXon HIV Screen 4th Generation wRfx Non-Reactive Normal Non Reactive [facility] Comment on above: Result Comment: HIV Negative HIV-1/HIV-2 antibodies and HIV-1 p24 antigen were NOT detected. There is no laboratory evidence of HIV infection. Performed By: #### R UBIGG #### [facility] [address] [place] [address] Dr. Juan Antonio Ibarra RPR QUANTon 12-28-2021 Rapid Plasma Reagin, Quant Non-Reactive Normal NonRea<1:1 [facility] Comment on above: Result Comment: Plea se Note: This test does not meet current guidelines for screening and diagnosis of syphilis. This test is intended for following treatment response in patients being treated for syphilis infection. To screen for syphilis infection, a reflex cascade that includes both RPR and a treponema-specific assay should be utilized, such as Treponema pallidum (Syphilis) Screening [place] (408478) or Rapid Plasma Reagin (RPR) Test With Reflex to Quantitative RPR and Confirmatory Treponema pallidum Antibodies (541607). Performed By: #### R PRQ #### [facility] [address] [place] [address] Dr. Juan Antonio Ibarra RUBELLA AB IGGon 12-28-2021 Rubella Antibodies, IgG 3.48 index Normal Immune >0.99 [facility] Comment on above: Result Comment: Non- immune <0.90 Equivocal 0.90 - 0.99 Immune >0.99 Performed By: #### R UBIGG #### [facility] [address] [place] [address] Dr. Juan Antonio Ibarra CBC AUTO DIFFon 12-26-2021 BASO # 0.0 103/ul Normal 0.0-0.1 [facility] Comment on above: Performed By: #### A 1C #### [facility] [address] [place] [address] Dr. Juan Antonio Ibarra Basophils/100 WBC (Bld) 0.3 % Normal 0.2-2.0 [facility] Comment on above: Performed By: #### A 1C #### [facility] [address] [place] [address] Dr. Juan Antonio Ibarra EO # 0.0 103/ul Normal 0.0-0.7 [facility] Comment on above: Performed By: #### A 1C #### [facility] [address] [place] [address] Dr. Juan Antonio Ibarra Eosinophils/100 WBC (Bld) 0.4 % Critically low 0.9-7.0 [facility] Comment on above: Performed By: #### A 1C #### [facility] [address] [place] [address] Dr. Juan Antonio Ibarra Erythrocyte distribution width (RBC) [Ratio] 13.5 % Normal 11.0-15.0 [facility] Comment on above: Performed By: #### A 1C #### [facility] [address] [place] [address] Dr. Juan Antonio Ibarra Hematocrit (Bld) [Volume fraction] 38.9 % Normal 36.0-48.0 [facility] Comment on above: Performed By: #### A 1C #### [facility] [address] [place] [address] Dr. Juan Antonio Ibarra Hemoglobin (Bld) [Mass/Vol] 12.9 g/dL Normal 12.0-16.0 [facility] Comment on above: Performed By: #### A 1C #### [facility] [address] [place] [address] Dr. Juan Antonio Ibarra IG # 0.03 10e3/ul Normal 0.00-0.03 [facility] Comment on above: Performed By: #### A 1C #### [facility] [address] [place] [address] Dr. Juan Antonio Ibarra IG % 0.3 % Normal 0.0-0.5 [facility] Comment on above: Performed By: #### A 1C #### [facility] [address] [place] [address] Dr. Juan Antonio Ibarra LYMPH # 1.4 103/ul Normal 1.2-3.8 [facility] Comment on above: Performed By: #### A 1C #### [facility] [address] [place] [address] Dr. Juan Antonio Ibarra Lymphocytes/100 WBC (Bld) 14.5 % Critically low 20.5-60.0 [facility] Comment on above: Performed By: #### A 1C #### [facility] [address] [place] [address] Dr. Juan Antonio Ibarra MANUAL DIFF REQ NO Normal [facility] Comment on above: Performed By: #### A 1C #### [facility] [address] [place] [address] Dr. Juan Antonio Ibarra MCH (RBC) [Entitic mass] 29.6 pg Normal 26.7-34.0 [facility] Comment on above: Performed By: #### A 1C #### [facility] [address] [place] [address] Dr. Juan Antonio Ibarra MCHC (RBC) [Mass/Vol] 33.2 g/dL Normal 29.9-35.2 [facility] Comment on above: Performed By: #### A 1C #### [facility] [address] [place] [address] Dr. Juan Antonio Ibarra MCV (RBC) [Entitic vol] 89.2 fL Normal 81.0-99.0 [facility] Comment on above: Performed By: #### A 1C #### [facility] [address] [place] [address] Dr. Juan Antonio Ibarra MONO # 0.5 103/ul Normal 0.3-0.8 [facility] Comment on above: Performed By: #### A 1C #### [facility] [address] [place] [address] Dr. Juan Antonio Ibarra Monocytes/100 WBC (Bld) 4.6 % Normal 1.7-12.0 [facility] Comment on above: Performed By: #### A 1C #### [facility] [address] [place] [address] Dr. Juan Antonio Ibarra NEUT # 7.7 103/ul Critically high 1.4-6.5 [facility] Comment on above: Performed By: #### A 1C #### [facility] [address] [place] [address] Dr. Juan Antonio Ibarra Neutrophils/100 WBC (Bld) 79.9 % Critically high 43.0-75.0 [facility] Comment on above: Performed By: #### A 1C #### [facility] [address] [place] [address] Dr. Juan Antonio Ibarra Platelet mean volume (Bld) [Entitic vol] 10.0 fL Normal 9.5-13.5 [facility] Comment on above: Performed By: #### A 1C #### [facility] [address] [place] [address] Dr. Juan Antonio Ibarra PLT 194 103/ul Normal 150-450 [facility] Comment on above: Performed By: #### A 1C #### [facility] [address] [place] [address] Dr. Juan Antonio Ibarra RBC 4.36 106/ul Normal 4.20-5.40 [facility] Comment on above: Performed By: #### A 1C #### [facility] [address] [place] [address] Dr. Juan Antonio Ibarra WBC 9.7 103/ul Normal 4.0-11.0 [facility] Comment on above: Performed By: #### A 1C #### [facility] [address] [place] [address] Dr. Juan Antonio Ibarra CULTURE URINEon 12-26-2021 CULTURE URINE Culture Observations : LIGHT GROWTH OF MIXED GENITAL ALONSO. NO POTENTIAL PATHOGENS SEEN. Normal [facility] Comment on above: Performed By: #### R UBIGG #### [facility] [address] [address] [address] Juan Antonio Ibarra GLYCOHEMOGLOBIN A1Con 2021 ADA RECOMMENDATION SEE BELOW Normal [facility] Comment on above: Result Comment: ADA RECOMMENDED LIMIT 4.0 - 6.0 ADA THERAPEUTIC TARGET < 7.0 ACTION SUGGESTED > 7.0 Performed By: #### A 1C #### [facility] [address] [address] [address] Juan Antonio Ibarra Glucose [Mass/Vol] 114 mg/dL Normal [facility] Comment on above: Performed By: #### A 1C #### [facility] [address] [address] [address] Juan Antonio Ibarra HbA1c (Bld) [Mass fraction] 5.6 % Normal 4.5-6.2 [facility] Comment on above: Performed By: #### A 1C #### [facility] [address] [address] [address] Juan Antonio Ibarra US PREG TVon [...] by: FELECIA GOLDMAN Date: 2021-12-07 16:59 Normal [facility] Coding Summaryon 11-21-2021 Coding Summary HTMLBase [id number] GcjhfwxuYSa4yZe+PGhlYWQ+PE 7CXGMfZ34gjTAywE3SC6cAYR7P VYCWRUQKJW8AGR5jhGQ1WFnnL8 VybiAv PxdpuQBoPP11FLv5RTR0aKluJZ edqR3fsLWbP9l2HzOzGA28iW86 ILgeVQXbKnR2DyRmrnaxiLBk J0jzUvNxrIEnZpw+PHRhYmxlIH qxRDWgWNwePIRjQhJyvBlyCV0y Wv8gFPXpSAYptYkrxRHiPyVl s6bfSFZtQPsfRJ7xrNscU9VuaN F8SIHtp3a7Ee98kBY+PHRkIHN0 mEkgANmrg700ZvYut4ppHME5 gMDeBVziMQV1V28kf6R8RNTcFP IrANA3oRZ8qY9msJpqhmocL8Jn aCYgQgE1TAJ1kMQlyK5esDfl cvxtzO9rQhk+D12NCK6AVOSARM 5AEjy3P2RmUkxulEV+MW73LWZv QP41wLXivJQar4aaoNa4YyMz MUAqJFE7oBmnBJnqd4KrKZBlP7 4tcRPfq9Q7NLIbbWnvaSTeHtXp fSW5zC0sJXvqbfmig8cprkfn Mmzti9dugn00kL59Q50pHGnxJY TqYKT3SWRqEWFuwNzzpm0bsC5e Ii8+ZAtdo2xbz4txeVm9LhLy VGSvwoCkkReqVFP1c8TqSz59S6 MghRedw6FkCsf8on71iMLja6N8 hLT9CIirBAGwyJ9hMRvlNqQ7 DTZoBlOkiV59yFRgYEjiXb0ykA ahiNwgPK9iDAGslccbEIBmjF7v BSIejULwaTpfLR4lGNZslwro p766OhYzRBN4QTSezGRoK7DekH 4cTuQnHHDeQLOsW5DmxTHwWVoo V855EXkdKsD8HECwrpRaO9Yh ARUebMirJcV8p8U3Dd3Vh3Bpuf siDNT3HGqgWEP5FwD4EpKeHcY7 G5DhXak5FGAzpIgnYI4xQ9Vo SODzddnkwuqleCZ7IPSmRGHdjY 53hVArDNwmZv7cf2A2j666NUTn KUFybX58Ch4sgDhvATQnmVEG xM4lulyfe5ckpnrxAnZlLAIkHS v9GGw9HZEhwLjaBxUtHHP1OfP8 PZD8kFSlyA5pfSeazkycfO7v Oyc+G48drP9rJPJ5RUL8ntykTO TnpuRtRW15DG56T6FrQqixcYJb bGU+POMvfgMuaSrvVI4eDoKh u2rqz2FsNLsmK2UpRBVwSRnmZu r0NAGqOGV5pSL5oF7zLFLvQDjv j3K4mYH4A4JzvoPldm4re3zz RZEqPKnuH60keVApb1U4VRRkwJ B8TTJygSagRyIgwI10Flk+PGNv qEdub9YjJydvr7eyj5brgOs9 IlSnYHHmqaCorAdkEJU3t7CcOt 76S37vJPopCDEfNRHtIQXjMHZz dRrvvj8fbL0jOw5+PGNvbCB3 wHN8jZ8hTVTjAvN1BQkzB700Lc SpuEGvNfkxn2sbp2xznWo0SvHr INQldhDffSyfOLJ7e9VbSq33 Z68tRXceSHXcAEVwDBPkNPHhhP lpmy6ceL3vLq6+EL4wv9nnum16 lX32cFE+PKQkDBL3cLowTWhc EVXqmC9oRYmkFaE8PPJqWkChzP 02tPCpTWqxOn4itFqiqJzxGA0t XHOaezprk227AzLgv5ydIIMi lMTsZZpqTFS2S22vu1L2OQVySI QoTQL7hGE1iG9ovJxjdfzigMGz jRmnsnKvpWfyIVjxWUubZ431 IHRvcDsnPlBhdGllbnQgTmFtZT g8C2JmJib7YCRkzFxsPO2mfPSu JJobHa4naRucaPcdYW0fOVVm qoovm594DlSvs5kpQATwqBKkKX gyUMC6K28lu4H9GKGmSZYhZRO9 mST7zS8exBofmbcjiGBylNzs taOceTsoRVhsXZshV257LZKltG pnJnVcwjLcTNArwYG0HV43BY94 jNSge4L8eNU3B4ZoPIJyzexf ndzlnXZ3KIPtLWDwuC13Of2bnR bnNk9jZLRvFIS2TUDzyGZhM9Kb xP6lYtHuJXAnGHCiU9WomEFk YRhgK191NIvoGnQ3IOVbfxFtZ8 YiDAZskTroZvD2r2A3Pr6NK6N6 ZK37JT25zXXdz5I8uXA6N4Hw SMWsmsulsptkxZM5HSMcVACamO 45Uw1obQolBv9mSJWjTSV9MPIm iJXfO3XfhE0bNeNcJGHdDGRh Y4FdoXXmUSxcT725DQooNqF1ZC YrmkZpR2RqOHPngTmjIdL0k5J7 Ou4XINb2GH40IE06qVSde4C9 lRX3C9NpVXZupggwmajzgAZ2AP FdXTQhtF03Mq4xpXwlWm2vONVf DMQ7BNKfqYGmB9SxqS2tUoEj EIOsDAJwR1PeyGRsTKysZ037JE qkJbY1ZNAnihYiR7QoJDGlvZdo KfY8x9P6Hw0PLGQhTU93TVL4 uVC0JW09JS51U1DyJjwfuMNzwX U+PHRhYmxlIHdpZHRoPScxMDAl RgPuhJsjHG7xBs0dULUdBNRl nGqipOVrDdBwq5amCSUeWPmhOL 5evCkuS0MnaSZ3BXGfj4u5Ca68 O75pT3UorZN+BRPmyJX3jPE3 eH8xCrNeXnB2IJhjZ736AbHgbX EzOydkz6kbw5umpCw9LzN2BJLr kaPkzDxeZDH2q7WdYp87U25x IHdpZHRoPSIxNSUiIHZhbGlnbj 1rsU8dDx2+VRWefOA1eJS5pS3t OlOwUcJ9ELllW547XkBswIMw Pnzzy7kbb6xyxHs2XhFdFXAjzu QxpWozCIF6l8UhSc75R1PyyGjl d3CfSsq5qc12nXMgp1J8yLN0 V7SwGSZdmpmteKFpbXruEP7yPH SeqdvxQZEheQ4jNCAqW2r0BfXp XtR7JUotH6SwwvM4KEMtrUGr MFbjZDR3F98xa0E1LYHtNJCpYI S1hWI7eK1bfImsdmjnxFPmuRxa sjKlzCbgERxkFFmpA592LWDd jZldCMRydS3sHBEjeXSwkKskBL 4wNTBpbjsnPlNURUlOLCBWSVJH SS0LMCLOCTY0O4YvWuz3XRNs rSwcXH2cbNXzUXxiFd0waRsxqI idQM3yMHCymqmcOOPdiB0lGPMy jQSmtQjsZC0vBRRzcddaj670 SmGcABF1HCYuxDEjT6VmxF6cJt QtJRPfCMMwA6SsfXTkBGbdC913 KGrbZnT0KZFmryDgU5GwXAEl bPluZwW0h3X0Gc6fBM6aTH2sBB cfCS52YM34jCAld6A0xHQ2L1Md VLZonenhsfmldCN0LPTtRQNu xK18sHClJDnuIc6cw8B5r539VI VdSEPvnU39Ai7enHdvJUWwvJAR sD1daopfr0zdodagAwCyYPWb ZBn9DYd5UKNidLqfElLkLJK8Ek B4HTG5kEIlmS8ndSwwbfjkaL2a Oyc+MuabGUBwwoZ3K6XoKoq8 XUAtpRwpOK3wtJWpRAhgAm9dsG ialGfbNI0uJJEtiixjHQZmwH2j BEXjxCXisLtrNF0oNGNzljap p987MvKoMXQ5TXBauEHeW9ZaiU 7tJtCaHRNvYXAaO8YhdMBpQKwb A482XXobGqM4OTYnoyIzZ8Vo KZJdzBtgWsB1g6J3Tc8PHW6FGR Y1V1ZyPhv0FAWcrPftGI5ywCJe ZHwcGe0zpTnmiItiIP1kWLJz zrseVLWjcO9oXRRvxMBraBepZY 6uBHQcryolc239YcGhNUU0QKJl dLTgQ8SzdA2xXgXkGUDwJQNu M6WliGIsEUyzG441JQbpDtG9LC KoykYlG3DgCHMarOykWtX9z0X9 Zx2RHZameYY+FN37lu64Y5Hf JwteMzv2XBGcJYG3fSU3zR9yQL JzATtoi3S0tAB3P3RruxPbxp2z m8niHVIqWTkdM33bePQzt4V7 OCOnuLP7KILzsVclKyBefE15Tz c+MWAlxBrru7VeXpmfi6kny5qf uUo1GsQgXCOytxGruYybFNH0 x2TmCs54D68lFAuiVPHvJFVvHJ WsFXUagDqzde4gqG8dBr3+PGNv jIO0kYZ7zZ8hLgJqEkE2ZCzu I421MkPydPLoAallt5xfd6mxiR p5ZiTbJEElenVgkGgtGGJ6q9To Fu66T9KddHwsz5NhLxa1zi83 bNGbo9H1oER3R5SbYGTjqoozxK MnjGkxPJ7qZXXyspwbBTHejA3c CWMwS4m9BwAuIbW6TJbgO8Gc eeM1IIFroTLkBWRiuEWNsW7aik ngx8ezjpfsAsLeFNPtISf1CXm3 HMYvcJvpIlUlFVA0CbD2YRI0 yGYotA2gnZxffkgeeK4oQez+UG d8h9qrfCTeDV0orZD7FB96QI81 tLDew2M0eRE0R6TiDMXodgvr bidvzBT7YXYoNXNrcC66Dx1gpG yaRt3gIJUaIIQ0RQUegMHmF8Rz uD3iDxChMNPyKSAnL2QyvPZp WJhfX522RTsvDyC8JJUlomNfO5 SiDKNnsAmrZvJ7c1U5Of0WWU26 EH61LW94wYZuu9R0rVT9H2Vf CYDoixghqldoaAB4HZTjNQJhaX 20Tf9mhVyxOj7kPQWiTZD1RPYc nJVvQ3HclJ3vIrOoPTAxBHLx Z8WvuDCjRCywF468ZQuzQgI5NW JmyyWkH0GaCBDovFzxKcG6f5J4 Ws0RHc12EL65LY63nNAny6K1 eFV7L2BsRMSdluvjsctnzOL5EX ZlBHPcrB17Lo2ktCvsPk0vFBBh OGV3RHQgeYWtM8BhxW1vTpBz ZAJsZGTxT4CoaFMgZKztN353CP xiRsZ2ERDsrxTwR5UuVUJjpBqo VkC7q8R0Jv7YVDkmuod0K1Um PjwvdHI+IA33LHVoCK82gXDvfP Gsd9wxeFl7KlLiMITeGWB0cYsg MWgon6AhABSdW99muSSgx7Y4 IGN (more content not included)... [facility] Coding Summary HTMLBase 64 OyxnsevgEFk3mQa+PGhlYWQ+PE 3RFIOjN32ndODmeI5XY9pVWL7R NKVNEPDHPX8JYA8ylRX0QEaaF6 VybiAv QmieaQViUE89WHo7WPQ5cLxdLE yolG7zbEUwV8l1IqEtKS67cF52 VCewXWRpIiC2EfJedbbmiDPn L8pnQfYmnPRtPjp+PHRhYmxlIH prANUlYCvtYMVeApUlfKwrEG7s Wx4iUPUmFRDbbKlddYIaKiIe a8gvZAVvSEmmVV5xfVolW3CdjH F8EJHsy3k1Pc98vCC+PHRkIHN0 vXdxYPktf747ZvCof5dwYOO1 yKHcRIcyWUF7H35zq0Q7QHPvHQ BySBA9dGO3pY1hfFduvipkB8Aq cQQiZsL3ZWM8cOAqeW7pbUdw usnhrS9eMmp+B57GFI5LPXATYL 6JIfv3W4AhHrymyWF+LX95FIYw BL45qSAylUXqc6psbBp9AgFy HCAhSEZ5gKltKPpwn2HgKAJoK8 0dvBMkz3C8DTRsgQkfkLVlHwXy xOI5bZ8zFCigbhate8wqbucu Azygx4apty43mX41E44bGNenJK BbWFO0RFFbOLFplHruku3alB8h Ii8+OQkpu1wsc0cwjTz2HqJg BEWehgJmfIxwELA7f4EbAs41V8 ZbcJqnx8QpNtu4td67kLJte7W7 sRH2IPnpRBRiwF9fUBksDbY0 OAEfQiGlcK86cXGsHYaeCq3kbC qcpRycZN7xCXMqltcqBOOvyF8z WRAisOYfuIsjNY7tAPKvqgdd i188YqKtRPN0SSOoiNBaU2LdnO 4nZtRjMKXpSROhS2IsnQMqZPhb D103JMnnFqF8TCQllmPkY7Qj NQJtzMtgBoA6p7F7Kv1Td1Xgav lbXFY4CQksLQT0MgD5GfShIyV9 D6UzNqc0GCWrqHwhSZ3bJ4Cz BOSnakgghqiaiNE4PGGpZDQnvH 71zWNgCEysBu0rm9L1f333SPUn GGEfrC51Bi8cgWjcQIDirQQN wT6rpkxhh8knnowmKqOhLZDmDA m4ENg3VGFcwExsZpSnVZE7YjV8 DOH3fBRxvH7hqHkfhywjfM5x Oyc+X46waP9sGWO3IOY5nhjxPO AmfjLdIR51UM26F1WfQaqdyGZo bGU+YYOpvrHetPymVY6vQwHl z7fqi8UiNJqlP3BxCMEaXPecZw j1PKSmJOR5fHM0fE4oSISiQKdy t4A0jWA4W4XifiNxys5xa1if AAPbGZypU41vtGWqm9K9ABJsgO U5KCVpfJceYjKnuU22Hnz+PGNv tEgvp7ZsYqfgh1rny6svmEt9 TyEbMOYobeIhcHixLUQ8a5OdAa 06I99wBYznBFFaIZGwQIIvIZKd jIdhlu8ywD3xEj2+PGNvbCB3 uOE5nN3cYIYcQiB9EEjrL272Ns DcgKNcTheps3bxr9tgbRo7CbUg OEZspyDpcYexKVD7r6TxCs56 P77wVFrbVNKmRJIwZHVoMBTgsM xjje1buT7xFy6+BR5lv8wjzb28 zV19eFO+WMIfRCD7wHqbNVln MVPepE4gCUpyCuC6UUZyRnAitR 92wTZgEZdqBl0elKpcqXuwOM3s DUEebmymu976LaRxk2znQUGg bKOdSTkfYCB0T97ze3M4BPVlVJ GaNXH1mZJ1lT6mwXcacqvmcCZp pHgvmdKbnObmOXvnRFvpA735 IHRvcDsnPlBhdGllbnQgTmFtZT v0M2RtKjl5KPCtiWwaXW8lgTCa MZvpQr2psSntyJdsFS9wZHFz jsdba210IhCtp4bvGZGwkFIgZD cvAYE7C70no0B0KQVjLYRhFFH1 bNG2tT4npToztzxwoLBqaAxv loEklRfaLCinEBjkJ349YSFgjR mrPrPyscDbOENemJC4XZ66JC15 dMKcn6J2kOZ3T7XcWYUiqozh xmeuxFM9AWOjFTHjsW83Wt1rlS wdTa1sFUNoZGV5VOIjsXWoT9Cc yX5dUrTlFSGnYSSqD8VnmFPs WUbrY077ICtaReG3KRLkvaAlK8 RlYMJymEfpKxW8v3N2Ed5QO8K9 OT99GO52wLQjw9X8sYU9P7Lj BWJkgadlkjbwrEU7YVUtLALofM 93Lu5jyXitXx0iCJQzHKD2NRTw cQAmI3IrnI9mTiOrXYHeFFBm T6RmzAVgJYbzC260BVazBpE4SV KuebGzP7IcAHZrxEddXjC4x6E5 Aj8SOVx1NG78ZK81fMIcy0Q0 vOB2H2VcNWPepghkxcsmkGR9FV XeGFMrwZ46Wx4rwSgjXb1zXJPo EVI9TJHjjFOeW7SwyE1oBpQf ANLhQWIfM9RdoDPeRJdqB627NS qqWxV5GUChxzZxB8AiWUFbxLda SdP1c9I2Ow8AZGErOS32YCF3 dNX1DO30TG04L6MtWeyuwGMyoI U+PHRhYmxlIHdpZHRoPScxMDAl LlZkgFkaBS3kDq0eDJMgHDKq wMotqNXsStXdf5hzUPNwSJaxVA 3tqAmkW7YaiGG6ZBGov9a2Vn39 I80bY7CgoBC+JMUxrAJ7kOW9 oG1jZbVhYyC7GWwfZ123CzEaqQ NnBndvb1xzi4jpgQi1FkR5PWQu hbWnnHmbMIV8a4ShEc48A24o IHdpZHRoPSIxNSUiIHZhbGlnbj 2yhB5yCk8+QEJfqIZ4kTV1fR0a YzNySeF8TTjzJ163BpTsdQTd Mybdr0emb8mdhOs0TjLpVIOxws VczDzqISA7z3ZqAk05D4IfzTuw s4IzGfj1oz19iRMlo7S6dMW7 I8JfLUIxbveiwOOcdXahAI8nEW UevzpiBDNpbL0wZGIrG6c1GbBq KbK2DLryL9KlcoR8ZGSvoRXp JOthJTA3J07qv4A6IVFjRRDgHV V5mXR8aB4dkCjxadnxoDDxbJwn nfMigXvrFNmoSYtnL044OBVa uGquIFFjwJ1qLZFvqCJztCniQK 4wNTBpbjsnPlNURUlOLCBWSVJH PL8WSKZBVVG6K5IgEef7GSKk vHaqUZ8dfOPuMRjuHx0hqOmmmS rsQW6hSGQedbsbXBVukJ0sHKKl cZKgqNgmSD8yICGnlwaki846 OxNsHCF7GDEluRLwG2LcpM3bTo GpVVVeMXXtL4JuiSNfRXfvA788 OZklOeL2ULWvmwMrR3ZpSNIr eIheKfV3r2F8Ed0rQP8vGD1wXH bdNE52WL02nBPux8G4rXT3Q8Ps XLQzifvbehsnrCY7ILWnKVLy wE98pFFfXNiaUm6jf1U3a842LV LeKDAeoH54Tg1ieWbwOCQnfPFC pF4rncwpa5omcmxuSlViQZFp XCo3UZo8XSDhkNxvIvIqLKV2Cg B2QCG9zYOdmH5cnNtleilroO1a Oyc+DaixLOGtrnY2Z0WgRgi4 GJAyiPhfPN4nlFMxNXbmWq5wlX haeDshSK5qOEMoedflJGIngS3a TNQmtYNaxBapFL0sXSVcvlte g704PsPhVFH7MTAwkXBbI9JxqY 1eJcFnGDZfXOJcQ3YmgKRlHKeq N778MBfkOeJ4LKSuzwWfI3Zw CUQvxGswLpQ3z5I6Yg7OHA3SKY R8B7HkQtj0YKEbqNvrVK7hfRRq RGyeHn6ztEdbiTlkNC0iWLXd lcksAWKkfV4qMKExdAFjhCxwDM 6tQRCtsmnhx891YiBfXCE4GWXk sWVeG1BgkI4jTtUySRTjWWQi K0BkmTOtMShlY297IHeiCeL8FI NhryVhA0BkNNJulYriFcS5z7K7 Wf6WbPXoV2YiS0z1T1ZxEijq dHI+KW61YJElNZ00kALttBHxs6 vaiZm6BgJvGNYpSXW8vOhxTKfd s8JfEYXpT90grECiz6V3DISc wTxtlJOrQjHmyGI4uW5mSXjvmw oyo2movutqKowmb0rjfw83iX93 D72rJYxlGVOyILNnLKNdOTTr kJtcqi4gjC2nMy0+LWGtvOU1tI B3mS0uIoApRnS1JIrhW826OlIq dXMmFhufe2uha9nhyXs5PkBw AQLkwmMewAosRNE4t9LsHo19T4 9sIHdpZHRoPSIyMCUiIHZhbGln nm7ewN5oUf3+UY2vs9jxig42 jN91wHW+CABbLNO5dRapPEhaYT AfxR3dKOphRkT1ZBDeDiPqwF71 qYDaJOmqEc6azSoleRdrGC6i QOPwlnffa350ViVqv2llXDQapA KbSVoiCMH5M53dl4P5GFDtERMy PJZ2iYE5qB7bbLqnxthpiPWs oQhhreYspLcnPRblRBtqG761GP LjbThvIqDxjWZfL0yjgvEIAG6z OjwvdGQ+OSIoAUT7mIyoTRtd BQBphE7pAUEjN0r6PpLlMpR9RC fbL7OiytQ5KQJiaLCjJRPsrRXB zB5ydzzkf7zdewseEqKzFHVx BXb2SBd9ADDrfKghFlDiYUQ9Cr V8AYX2hVXziU4coGcqbamvfT8c Oyc+RklOOjwvdGQ+PHRkIHN0 kMllPEpaPRQdjK4aNBOlI5l1Mp GwWxI8HJtnI6CpzmI6PRRhjAZn HZWqxACLeK3rliogv9vlipjc YlEkGQVeAXu4DNh0QTQjmMbmRb MnWHW2LoU3EVJ8kKEsyI9urLoq jvzdwJ0qCwi+TVJOOjwvdGQ+ YCKyUTZ6aIeeXYssZYQvqS5sDO KqE8b4XqJdApF1ZZgeH0LfeiF9 QBTrdVJvMZIuvQDIqL1kiolg h4cslrmyBdNhTDWdQSd0ZOe0RX EewHzaAdWsLVO1StM6NWH2iTKd oE8siGbhrkarcZ5mSel+UGF5 WMP5ZL83AU14G3KuMnpuhVUamA U+PHRhYmxlIHdpZHRoPScxMDAl TvCqmKmbMR8mFs0xIMAiBVKm bGx (more content not included)... Normal [facility] ED Clinical Summaryon 2021 ED Clinical Summary [facility] - Emergency Department [address] [place] [address] ED Clinical Summary PERSON INFORMATION Name: ZULEIKA WYATT Age: 31 Years Sex: FEMALE : 1990 MRN: Acct#: Visit Reason: Rib/trunk pain-swelling; ABD PAIN Arrival: 11/13/2021 16:30:24 Discharge: 11/13/2021 18:01:00 LOS: 000 01:31 Check In: 11/13/2021 16:30:24 Checkout:11/13/2021 18:01:00 Address: [address] [place] [address] [address] [facility] [address] PCP: Andie Stoddard PROVIDER INFORMATION Provider Role [...] With: Address: When: CUONG ORTIZ [address] [place] [address] Within 1 to 2 days [...] results be sent to Dr. Ortiz, your ACCOUNTS PAYABLES CLERK physician. She will contact his office tomorrow [...] verbalizes understanding of instructions given Comment: Normal [facility] ED Note-Nursingon 11-13-2021 ED Note-Nursing [...] 6 with steady gait and no assistance. Normal [facility] ED Patient Summaryon 022 ED Patient Summary [facility] - Emergency Department [address] [place] [address] PATIENT DISCHARGE INSTRUCTIONS Patient Information Name: ZULEIKA WYATT Age: 31 Years Date of : 1990 Reason For Visit: Rib/trunk pain-swelling; ABD PAIN Arrival Time: 11/13/2021 16:30:24 Primary Care Physician: Andie Stoddard Attending Physician: Gamaliel Wyman MD Comment: Visit Diagnosis: Diagnoses This Visit Elevated blood pressure reading (R03.0) History of abdominal pain (Z87.898) at early stage (Z34.90) Rib/trunk pain-swelling ([id number]) Prescription Information: If you have been given a prescription for narcotics, seek immediate medical attention if you have any difficulty breathing or any sudden status changes such as confusion and sleepiness. If you or anyone you know is experiencing suicidal thoughts, mental health, alcohol and/or drug addiction problems; contact the [facility] 07/01 Crisis Hotline -Text 4HEEX to [phone]. If you received any narcotics, sedation, or [...] legal documents With: Address: When: CUONG ORTIZ [address] [place], [place] [id number] Within 1 to 2 days Comments: Diagnosis [...] results be sent to Dr. Ortiz, your ACCOUNTS PAYABLES CLERK physician. She will contact his office tomorrow [...] and treatment you received today in the [facility] Emergency Department were for an urgent problem and are not intended as complete care. It is important for you to follow up with a doctor, nurse practitioner, or physician?s admissions assistant for ongoing care. If your symptoms [...] so we can reach you if necessary. [facility] Emergency Department has provided you with a complete list of medications post discharge. Please inform your warehouse attendant/provider of your visit and for further instruction [...] Temporal: 3 (more content not included)... Normal [facility] hCG Quantitativeon 2 hCG Quantitative 45115.0 mIU/mL High 0.0-0.6 [facility] Comment on above: Order Comment: Lucy whitney call or fax results to Dr. Ortiz's office Result Comment: Resu lt confirmed by dilution Post-Menopausal Reference Range is: 0.1-11.6 mIU/mL Performed By: #### 7 [id number] #### [facility] (DEFAULT) [address] [place] [address] Coding Summary.on 12-19-2018 Coding Summary. CODING DATE: [address] [facility] DSC STATUS: Left Against Medical Advice [...] Date Saved: 12/19/2018 10:35 am Normal [facility] ED Clinical Summaryon 2018 ED Clinical Summary (Inserted Image. Elena ble to display) [place] [id number] ED Clinical Summary Person Information Name: ZULEIKA VILLALTA/[facility] Age: 28 Years : 1990 12:00 AM Sex: Female Language: PCP: Marital Status: Phone: [phone] Visit Id: Visit Reason: Test; MENSTRUAL PROBLEMS [...] 12/15/2018 5:58 PM 12/15/2018 5:58 PM ADDRESS: [address] [place] [phone] PHYS DOC NOTES: MEDICAL INFORMATION: Prescriptions Given: PATIENT EDUCATION INFORMATION: Instructions: Follow up: DIAGNOSIS: Normal [facility] ED Patient Education Noteon 12-15-2018 ED Patient Education Note Normal [facility] ED Patient Summaryon 019 ED Patient Summary (Inserted Image. Elena ble to display) [place] [id number] Patient Discharge Instructions Person Information Name: ZULEIKA VILLALTA Age: 28 Years Arrival Date: 12/15/2018 4:37 PM Discharge Diagnosis: Primary Care Physician: Provider Information Primary Provider: Advanced Rfid Developer:None The exam and treatment you received in the Emergency Department were for an urgent problem and are not intended as complete care. It is important that you follow up with a doctor, nurse practitioner, or physician?s admissions assistant for ongoing care. If your symptoms [...] opioids can be used to help relieve efpeuphb-xf-[id number] pain and are often prescribed following a [...] be struggling with addiction, tell your health urgent care nurse practitioner and ask for guidance or call [facility]?S National Helpline at 5-101-509-MZGH. v Source: [place] Department of Health and Human Services/Center for Disease Control & Prevention Citizen Of [place] [facility] Medications Given: Medication Dose Route No medications found. Medication Information: Comment: Pharmacy Information: Thank you for choosing [facility] Patient Education Materials: JADEN Jacome [place] , have received the following patient education materials/instructions and have verbalized understanding: Patient Education Materials: Follow-up Instructions: Prescriptions: Patient Signature __ Date Clinician/Nurse Signature Date 12/15/18 17:58:10 [facility] Progress Note-Nurseon 2018 Progress Note-Nurse [...] take care of her daughter. Normal [facility] U BetaHcg Qualon 12-15-2018 HCG.beta subunit (U) [Moles/Vol] Negative Normal [facility] Comment on above: Performed By: #### 2 [id number], [id number] #### [facility] [address] [place] [address] UA With Cult Reflexon 2018 Bacteria LM Ql (Urine sed) TRACE Normal Trace [facility] Comment on above: Performed By: #### 2 [id number], [id number] #### [facility] [address] [place] [address] Bilirubin Ql (U) Negative Normal Negative [facility] Comment on above: Performed By: #### 2 [id number], [id number] #### [facility] [address] [place] [address] Clarity (U) CLEAR Normal Clear [facility] Comment on above: Performed By: #### 2 [id number], [id number] #### [facility] [address] [place] [address] Color (U) YELLOW Normal Yellow [facility] Comment on above: Performed By: #### 2 [id number], [id number] #### [facility] [address] [place] [address] Epithelial cells.squamous LM.HPF (Urine sed) [#/Area] 0-2 Normal 0-2 [facility] Comment on above: Performed By: #### 2 [id number], [id number] #### [facility] [address] [place] [address] Glucose Test strip (U) [Mass/Vol] Negative Normal Negative [facility] Comment on above: Performed By: #### 2 [id number], [id number] #### [facility] [address] [place] [address] Hemoglobin Ql (U) Negative Normal Negative [facility] Comment on above: Performed By: #### 2 [id number], [id number] #### [facility] [address] [place] [address] Ketones (U) [Mass/Vol] Negative Normal Negative [facility] Comment on above: Performed By: #### 2 [id number], [id number] #### [facility] [address] [place] [address] [place].plasma/[place] .RBC (Bld) [Mass ratio] 0-3 Normal 0-3 [facility] Comment on above: Performed By: #### 2 [id number], [id number] #### [facility] [address] [place] [address] Nitrite Ql (U) Negative Normal Negative [facility] Comment on above: Performed By: #### 2 [id number], [id number] #### [facility] [address] [place] [address] pH (U) 6.5 [pH] 5.0-9.0 [facility] Comment on above: Performed By: #### 2 [id number], [id number] #### [facility] [address] [place] [address] Protein (U) [Mass/Vol] Negative Normal Negative [facility] Comment on above: Performed By: #### 2 [id number], [id number] #### [facility] [address] [place] [address] Specific gravity (U) [Rel density] 1.010 1.005-1.03 0 [facility] Comment on above: Performed By: #### 2 [id number], [id number] #### [facility] [address] [place] [address] UA Spec Desc Clean Catch Normal [facility] Comment on above: Performed By: #### 2 [id number], [id number] #### [facility] [address] [place] [address] Urobilinogen Qn (U) 0.2 {Pamela'U}/dL Normal 0.0-1.0 [facility] Comment on above: Performed By: #### 2 [id number], [id number] #### [facility] [address] [place] [address] WBC Auto Ql (U) Negative Normal Negative [facility] Comment on above: Performed By: #### 2 [id number], [id number] #### [facility] [address] [place] [address] WBC LM.HPF (Urine sed) [#/Area] 0-5 Normal 0-5 [facility] Comment on above: Performed By: #### 2 [id number], [id number] #### [facility] [address] [place] [address] Auto Diffon 12-12-2017 Basophils Auto #/vol (Bld) 0.1 E3/mcL Normal 0.0-0.2 [facility] Comment on above: Order Comment: Order Added by Discern Expert. Performed By: #### 2 [id number] ####KADEN [address] [place] [address] Basophils/100 WBC Auto (Bld) 0.9 % Normal 0.0-2.0 [facility] Comment on above: Order Comment: Order Added by Discern Expert. Performed By: #### 2 [id number] ####KADEN [address]Mer[address] [place] [address] Eos Absolute 0.0 E3/mcL Normal 0.0-0.7 [facility] Comment on above: Order Comment: Order Added by Discern Expert. Performed By: #### 2 [id number] ####KADEN B[address]AbsSusq[address] [place] [address] Eosinophils/100 leukocytes 0.4 % Normal 0.0-11.0 [facility] Comment on above: Order Comment: Order Added by Discern Expert. Performed By: #### 2 [id number] ####KADEN [address] [place] [address] Lymphocytes 1.4 E3/mcL Normal 1.2-3.4 [facility] Comment on above: Order Comment: Order Added by Discern Expert. Performed By: #### 2 [id number] ####KADEN [address] [place] [address] Lymphocytes/100 leukocytes 16.6 % Low 20.0-55.0 [facility] Comment on above: Order Comment: Order Added by Discern Expert. Performed By: #### 2 [id number] ####KADEN [address] [place] [address] [place] Absolute 0.5 E3/mcL Normal 0.0-0.7 [facility] Comment on above: Order Comment: Order Added by Discern Expert. Performed By: #### 2 [id number] ####KADEN [address] [place] [address] Monocytes/100 leukocytes 5.5 % Normal 0.0-10.0 [facility] Comment on above: Order Comment: Order Added by Discern Expert. Performed By: #### 2 [id number] ####KADEN [address] [place] [address] Neutro Absolute 6.7 E3/mcL High 1.4-6.5 [facility] Comment on above: Order Comment: Order Added by Discern Expert. Performed By: #### 2 [id number] ####KADEN [address] [place] [address] Neutro Auto 76.6 % High 37.0-75.0 [facility] Comment on above: Order Comment: Order Added by Discern Expert. Performed By: #### 2 [id number] ####KADEN [address] [place] [address] CBC w/ Auto Diffon 8 Erythrocyte distribution width Auto Ratio (RBC) 15.0 % High 11.5-14.5 [facility] Comment on above: Performed By: #### 2 [id number] ####KADEN [address] [place] [address] Erythrocytes (RBC) 4.94 E6/mcL Normal 3.90-5.40 [facility] Comment on above: Performed By: #### 2 130976 ####KADEN B[address]FesQjen[address] [place] [address] Hematocrit (HCT) 40.0 % Normal 36.0-48.0 [facility] Comment on above: Performed By: #### 2 146816 ####KADEN [address] [place] [address] Hemoglobin mass conc (Bld) 13.0 g/dL Normal 12.0-16.0 [facility] Comment on above: Performed By: #### 2 [id number] ####KADEN [address]fob[address] [place] [address] MCH 26.2 pg Low 27.0-31.0 [facility] Comment on above: Performed By: #### 2 [id number] ####KADEN [address] [place] [id number] MCHC mass conc (RBC) 32.4 g/dL Low 33.0-37.0 [facility] Comment on above: Performed By: #### 2 [id number] ####KADEN B[address]NovMkdj[address] [place] [address] MCV 81.0 fL Normal 78.0-100.0 [facility] Comment on above: Performed By: #### 2 [id number] ####KADEN B[address]Bl[address]Cbez[address] [place] [address] Platelet mean volume (PMV) 7.5 fL Normal 7.4-11.0 [facility] Comment on above: Performed By: #### 2 777625 ####KADEN BairdUiiKz[address] [place] [address] Platelets 347 E3/mcL Normal 130-400 [facility] Comment on above: Performed By: #### 2 128530 ####KADEN BairdKnzPdvg[address] [place] [address] WBC (Leukocytes) 8.7 E3/mcL Normal 3.6-11.0 [facility] Comment on above: Performed By: #### 2 [id number] ####KADEN BairdLtcNmtz[address] [place] [address] CMPon 12-12-2017 Alanine aminotransferase (ALT) 14 Int._Unit/L Normal 10-40 [facility] Comment on above: Performed By: #### 2 [id number] ####KADEN [address] [place] [address] Albumin 3.8 g/dL Normal 3.2-5.0 [facility] Comment on above: Performed By: #### 2 115452 ####KADEN [address] [place] [address] Albumin/Globulin Ratio 1.0 {ratio} Low 1.1-1.9 [facility] Comment on above: Performed By: #### 2 [id number] ####KADEN [address] [place] [address] Alk Phos 75 Int._Unit/L Normal 42-121 [facility] Comment on above: Performed By: #### 2 [id number] ####KADEN [address] [place] [address] Aspartate aminotransferase (AST) 18 Int._Unit/L Normal 10-42 [facility] Comment on above: Performed By: #### 2 402529 ####KADEN [address] [place] [address] Bili Total 1.0 mg/dL Normal 0.2-1.0 [facility] Comment on above: Performed By: #### 2 851653 ####KADEN [address] [place] [address] BUN/Creatinine Ratio 12.5 ratio Normal 5.4-30.0 [facility] Comment on above: Performed By: #### 2 497496 ####KADEN [address] [place] [address] Creatinine 0.8 mg/dL Normal 0.6-1.3 [facility] Comment on above: Performed By: #### 2 871954 ####KADEN [address] [place] [address] Globulin 3.8 g/dL Normal 2.0-4.0 [facility] Comment on above: Performed By: #### 2 197992 ####KADEN BairdJbyIdae[address] [place] [address] Protein 7.6 g/dL Normal 6.4-8.3 [facility] Comment on above: Performed By: #### 2 172135 ####KADEN [address] [place] [address] Urea nitrogen 10 mg/dL Normal 7-18 [facility] Comment on above: Performed By: #### 2 558116 ####KADEN [address] [place] [address] Calcium 9.3 mg/dL Normal 8.4-10.2 [facility] Comment on above: Performed By: #### 2 396835 ####KADEN [address] [place] [address] Chloride 105 mmol/L Normal 98-107 [facility] Comment on above: Performed By: #### 2 005750 ####KADEN [address] [place] [address] CO2 25.1 mmol/L Normal 24.0-30.0 [facility] Comment on above: Performed By: #### 2 682913 ####KADEN [address] [place] [address] Glucose mass conc 101 mg/dL High 70-99 [facility] Comment on above: Performed By: #### 2 706888 ####KADEN [address] [place] [address] Potassium molar conc 3.4 mmol/L Low 3.5-5.1 [facility] Comment on above: Performed By: #### 2 738587 ####KADEN [address] [place] [address] Sodium 140 mmol/L Normal 136-145 [facility] Comment on above: Performed By: #### 2 625343 ####KADEN B[address]Nzdo[address] [place] [address] Lipase Levelon 12-12-2017 Lipase Lvl 30 U/L Normal 8-57 [facility] Comment on above: Performed By: #### 2 554023 ####KADEN [address] [place] [address] UA Completeon 12-12-2017 UA Blood 3+ Normal Negative [facility] Comment on above: Performed By: #### 2 743770 ####KADEN BairdYtyYoaq[address] [place] [address] UA Bacteria Trace Abnormal None [facility] Comment on above: Performed By: #### 2 938728 ####KADEN [address] [place] [address] UA Clarity SltCloudy Abnormal Clear [facility] Comment on above: Performed By: #### 2 737601 ####KADEN KzaRsfx[address] [place] [address] UA Hyal Cast 0-2 Normal 0-2 [facility] Comment on above: Performed By: #### 2 687398 ####KADEN ZefLtes[address] [place] [address] UA Leuk Est 3+ Abnormal Negative [facility] Comment on above: Performed By: #### 2 496660 ####KADEN ZcxMxcu[address] [place] [address] UA Mucous Many Abnormal Trace [facility] Comment on above: Performed By: #### 2 174453 ####KADEN TkdXkui[address] [place] [address] UA Nitrite Negative Normal Negative [facility] Comment on above: Performed By: #### 2 678285 ####KADEN [address] [place] [address] UA pH 5.0 Normal 4.6-8.0 [facility] Comment on above: Performed By: #### 2 163576 ####KADEN RutTiqn[address] [place] [address] UA Protein 1+ Abnormal Negative [facility] Comment on above: Performed By: #### 2 119305 ####KADEN ClcSqdr[address] [place] [address] UA Spec Grav 1.026 Normal 1.003-1.03 0 [facility] Comment on above: Performed By: #### 2 414107 ####KADEN UojRlsf[address] [place] [address] UA Squam Epithelial 0-5 Normal 0-5 [facility] Comment on above: Performed By: #### 2 112813 ####KADEN [address] [place] [address] UA Urobilinogen 2.0 mg/dL Abnormal [facility] Comment on above: Performed By: #### 2 230921 ####KADEN [address] [place] [address] UA WBC >50 Abnormal 0-5 [facility] Comment on above: Performed By: #### 2 116707 ####KADEN [address] [place] [address] Urine, color Yellow Normal Yellow [facility] Comment on above: Performed By: #### 2 449461 ####KADEN [address] [place] [address] Urine, erythrocytes 20-50 Abnormal 0-3 [facility] Comment on above: Performed By: #### 2 408199 ####KADEN [address] [place] [address] Urine, glucose Negative Normal Negative [facility] Comment on above: Performed By: #### 2 298506 ####KADEN [address] [place] [address] Urine, ketones presence Trace Normal [facility] Comment on above: Performed By: #### 2 353055 ####KADEN [address] [place] [address] Urine, urobilinogen Negative Normal Negative [facility] Comment on above: Performed By: #### 2 063317 ####KADEN [address] [place] [address] eGFRon 12-12-2017 eGFR AA >60 Normal [facility] Comment on above: Order Comment: Order Added by Discern Expert. Performed By: #### 2 341686 ####KADEN BairdViaZial[address] [place] [address] eGFR (non-black) mL/min/{1.73_m2} Normal [facility] Comment on above: Order Comment: Order Added by Discern Expert. Performed By: #### 2 746455 ####KADEN [address] [place] [address] HISTORY PHYSICALon 8 HISTORY PHYSICAL HNO ID: [id number] thor: Clara ChaoeService: Maternal MedicineAuthor Type: PhysicianType: HANDPFiled: 12/02/2017 9:04 AMNote Text:STANDARD [facility] DOCUMENTDISCHARGE SUMMARYPatient Name: Zuleika Gtz [...] 4 weeks with provider.Clara Jama, DO Normal [facility] PROGRESSon 12-02-2017 PROGRESS HNO ID: [id number] thor: Marie Lema (Res) JabiereService: ObstetricsAuthor Type: [...] with more than 50% of the total oflv-hl-kwwbejdt of the visit in counseling / coordination [...] decreasing.Ambulating without difficulty.OBJECTIVE:PHYSI GEN EXAM:Heart: RR, S1, R2Haart: clear to auscultationAbdomen: Soft Bowel sounds present [...] December 02, 2017 : 5:45 AM Normal [facility] SOCIAL WORKon 12-02-2017 SOCIAL WORK HNO ID: [id number] thor: Meredith Jackson (Sw)oService: Social WorkAuthor Type: Social WorkerType: Social WorkFiled: 12/02/2017 12:25 PMNote Text:SOCIAL WORK CONSULT NOTESERVICE DATE: 12/02/2017SERVICE TIME: 1015Referred by: Jose for visit:Maternal/Infant - adjustment to conditionLiving Arrangement: HomeLives With: PartnerFinancial Resources: DisabledPrimary Contact:Extended Emergency Contact Information DARRELL BRANCH IIPrnovant health forsyth medical centeradelaida Emergency Contact: No,ContactRelation: OtherSupportive: YesOther Important Patient Contacts: FOKaren family (Alma and Salomon Munoz)Health Insurance: MedicaidVirginvineet [...] from hospital. (FOBparents are Anamika Munoz of [address] [place] [address] , [facility]).Per pt and FOB, all needed baby supplies and equipment are at the [facility] and a nursery has been set up.Per pt, name of baby girl is Martha Branch.Pt states she is on SSI and WIC.Pt shares that she is in ongoing counseling at [facility] in [place] and has appointments 2 x per month.Discussed with pt and FOB signs and sx of depression; safe babysleep and discussed ways to deal with crying . Pt again states sheis going to rely on her support system.No additional issues identified at this time. Encouraged pt and FOB toutilize services through [facility]. Providedcontact information.Outcome/Recomm endations:[facility]ENTERime spent (minutes): 60SIGNATURE: CARLA Goncalves PATIENT NAME: Zuleika LambATE: December 02, 2017 : 11:10 AM PAGER/CONTACT#: Debo [facility] ANES INTRAOPon 12-01-2017 ANES INTRAOP HNO ID: [id number] thor: Terrance WillsgService: AnesthesiologyAuthor Type: Nurse AnesthetistType: Anesthesia IntraOpFiled: 12/01/2017 9:41 AMNote Text:ANALGESIA PROGRESS RECORDCATHETER REMOVAL/END OF CASESERVICE DATE: 12/01/2017REMOVAL DATE AND TIME: 11/30/2017, 1953DELIVERY DATE AND TIME: 11/30/2017 at 5:49 PMCATHETER REMOVAL:Catheter Removal: See [facility] Nursing noteSIGNATURE: Terrance Contreras APRNRUSSELL PATIENT NAME: Zuleika LambATE: December 01, 2017 : 9:40 AM PAGER/CONTACT #: Normal [facility] ANES Keke 12-01-2017 ANES POST HNO ID: [id number] thor: Terrance Lockhartervice: AnesthesiologyAuthor Type: Nurse AnesthetistType: [...] [facility] PROGRESSon 12-01-2017 PROGRESS HNO ID: [id number] thor: Marie Lema (Res) LendeService: ObstetricsAuthor Type: [...] decreasing.Ambulating without difficulty.OBJECTIVE:PHYSI GEN EXAM:Heart: RR, S1, A7Ygsvk: clear to auscultationAbdomen: Soft Bowel sounds present [...] December 01, 2017 : 6:40 AM [facility] ABO/Rh Confirmationon 2017 ABO group Nom (Bld) A [facility] Comment on above: Performed By: #### A JESSIE #### [place] [address] RH Type Positive [facility] Comment on above: Performed By: #### A JESSIE #### [place] [address] ANES PREOPon 11-30-2017 ANES PREOP HNO ID: [id number] thor: Aaron (Casket Upholsterer) ChinoService: AnesthesiologyAuthor Type: Nurse AnesthetistType: Anesthesia PreOpFiled: [...] of Sleep Apnea: DeniesHematocritDate Value Ref Range Abffrj8411/30/2017 32.3 (L) 34.1 - 44.9 % Final Platelet CountDate Value Ref Range Bdcpqs6111/30/2017 193 182 - 369 thou/cmm Final Vitals: 06/16/375844 830 139 143BP: 142/75 138/81Pulse: 75 81Resp:Temp: [...] needed. Disp: Rfl:Inpatient medications reviewed in [facility].I have interviewed and examined the patient. I have reviewed the medicalrecord , pertinent consults and/or the pre-anesthesia evaluation,pertinent labs, and test results.Significant changes in the patient's condition since the History andPhysical, not otherwise documented in primary service progress notes: [facility] contains updated information obtained within 48 hours ofSurgery/Procedure.SIGNAT URE: Hema Cuellar APRN.LATIN AMERICAN STUDIES PROFESSOR PATIENT NAME: Zuleika LambATE: November 30, 2017 : 12:13 PM : 1990 [facility] Auto Diffon 11-30-2017 Basophils Auto #/vol (Bld) 0.1 E3/mcL Normal 0.0-0.2 [facility] Comment on above: Order Comment: Order Added by Discern Expert. Performed By: #### 2 574953 ####KADEN BairdUquZain[address]2 [place] [address] Basophils/100 WBC Auto (Bld) 0.9 % Normal 0.0-2.0 [facility] Comment on above: Order Comment: Order Added by Discern Expert. Performed By: #### 2 468727 ####KADNEMorelia BairdWumBogr[address] [place] [address] Eos Absolute 0.1 E3/mcL Normal 0.0-0.7 [facility] Comment on above: Order Comment: Order Added by Discern Expert. Performed By: #### 2 771070 ####KADEN TjbDhkw[address] [place] [address] Eosinophils/100 leukocytes 1.0 % Normal 0.0-11.0 [facility] Comment on above: Order Comment: Order Added by Discern Expert. Performed By: #### 2 463459 ####KADEN JmdClwd1385 [place] [address] Lymphocytes 2.0 E3/mcL Normal 1.2-3.4 [facility] Comment on above: Order Comment: Order Added by Discern Expert. Performed By: #### 2 946858 ####KADEN PlmUytc[address]76 [place] [address] Lymphocytes/100 leukocytes 22.1 % Normal 20.0-55.0 [facility] Comment on above: Order Comment: Order Added by Discern Expert. Performed By: #### 2 949250 ####KADEN NcfJzfe[address]376 [place] [address] [place] Absolute 0.7 E3/mcL Normal 0.0-0.7 [facility] Comment on above: Order Comment: Order Added by Discern Expert. Performed By: #### 2 060220 ####KADEN [address] [place] [address] Monocytes/100 leukocytes 7.5 % Normal 0.0-10.0 [facility] Comment on above: Order Comment: Order Added by Discern Expert. Performed By: #### 2 632318 ####KADEN [address] [place] [address] Neutro Absolute 6.1 E3/mcL Normal 1.4-6.5 [facility] Comment on above: Order Comment: Order Added by Discern Expert. Performed By: #### 2 916597 ####KADEN [address] [place] [address] Neutro Auto 68.5 % Normal 37.0-75.0 [facility] Comment on above: Order Comment: Order Added by Discern Expert. Performed By: #### 2 415637 ####KADEN [address] [place] [address] CBC w/ Auto Diffon 8 Erythrocyte distribution width Auto Ratio (RBC) 14.3 % Normal 11.5-14.5 [facility] Comment on above: Performed By: #### 2 407316 ####KADEN [address] [place] [address] Erythrocytes (RBC) 4.34 E6/mcL Normal 3.90-5.40 [facility] Comment on above: Performed By: #### 2 870647 ####KADEN [address] [place] [address] Hematocrit (HCT) 35.1 % Low 36.0-48.0 [facility] Comment on above: Performed By: #### 2 220517 ####KADEN [address] [place] [address] Hemoglobin mass conc (Bld) 11.6 g/dL Low 12.0-16.0 [facility] Comment on above: Performed By: #### 2 603749 ####KADEN KpsAzgr[address] [place] [address] MCH 26.6 pg Low 27.0-31.0 [facility] Comment on above: Performed By: #### 2 344892 ####KADEN [address] [place] [address] MCHC mass conc (RBC) 32.9 g/dL Low 33.0-37.0 [facility] Comment on above: Performed By: #### 2 212888 ####KADEN [address] [place] [address] MCV 80.9 fL Normal 78.0-100.0 [facility] Comment on above: Performed By: #### 2 811386 ####KADEN [address] [place] [address] Platelet mean volume (PMV) 7.6 fL Normal 7.4-11.0 [facility] Comment on above: Performed By: #### 2 140642 ####KADNE [address] [place] [address] Platelets 217 E3/mcL Normal 130-400 [facility] Comment on above: Performed By: #### 2 104000 ####KADEN BairdOmiIwbo[address] [place] [address] WBC (Leukocytes) 8.8 E3/mcL Normal 3.6-11.0 [facility] Comment on above: Performed By: #### 2 503092 ####KADEN [address] [place] [address] CONSULTon 11-30-2017 CONSULT HNO ID: [id number] thor: Marie Lema (Res) LendeService: ObstetricsAuthor Type: [...] T0 L0 SAB1 TAB0 Ectopic0 Multiple0 Live Deinjz6Ctjk of Baby 1: Not recorded Date: 2012 [...] pupils equal, no thyromegalyLungs: clearHeart: RR, S1, Q7Ldpxwzw: soft, nontender, no massesUterus: soft, NTExtremities: 1+ [...] Epi prn4. [place] soon5. [place] [address]. anomalies- prominent cisterna magna, bilateral periventrcularnodular heterotopia, [...] EF 55%.10. H/o maternal clubfoot-s/p repair as uzafvf39. H/o tobacco abuseSigned out to [facility] for deliveryDr. Amado reviewed with Dr. MaldonadoSIGNATURE: Marie Hassan DO PATIENT NAME: Zuleika LambATE: November 30, 2017 : 6:49 AM PAGER/CONTACT #: [phone] Normal [facility] HISTORY PHYSICALon 8 HISTORY PHYSICAL HNO ID: [id number] thor: Marie Lema (Joaquín) JabiereService: ObstetricsAuthor Type: [...] T0 L0 SAB1 TAB0 Ectopic0 Multiple0 Live Xdoztd3Hjew of Baby 1: Not recorded Date: 2014 [...] pupils equal, no thyromegalyLungs: clearHeart: RR, S1, X1Hjxbtvj: soft, nontender, no massesUterus: soft, NTExtremities: 1+ [...] Epi prn4. [place] soon5. [place] [address]. anomalies- prominent cisterna magna, bilateral periventrcularnodular heterotopia, [...] EF 55%.10. H/o maternal clubfoot-s/p repair as tyrgpt37. H/o tobacco abuseSigned out to [facility] for deliveryD/w Dr. AmadoSIGNATURE: Marie Hassan DO PATIENT NAME: Zuleika LambATE: November 30, 2017 : 6:49 AM PAGER/CONTACT #: [phone] Normal [facility] Hemogramon 11-30-2017 Erythrocyte distribution width Ratio (RBC) 13.6 % Normal 11.7-14.4 [facility] Comment on above: Performed By: #### C BC1 #### [place] [address] Hematocrit Volume Fraction (Bld) 32.3 % Low 34.1-44.9 [facility] Comment on above: Performed By: #### C BC1 #### [facility] [address] [place] [address] Hemoglobin mass conc (Bld) 10.4 g/dL Low 11.2-15.7 [facility] Comment on above: Performed By: #### C BC1 #### [facility] [address] [place] [address] MCH Entitic mass (RBC) 26.4 pg Normal 25.6-32.2 [facility] Comment on above: Performed By: #### C BC1 #### [facility] [address] [place] [address] MCHC mass conc (RBC) 32.2 % Normal 31.6-34.8 [facility] Comment on above: Performed By: #### C BC1 #### [place] [address] MCV Entitic volume (RBC) 82.0 fL Normal 79.4-94.8 [facility] Comment on above: Performed By: #### C BC1 #### [facility] [address] [place] [address] Platelet mean volume Entitic volume (Bld) 9.9 fL Normal 9.4-12.3 [facility] Comment on above: Performed By: #### C BC1 #### [facility] [address] [place] [address] Platelets #/vol (Bld) 193 thou/cmm Normal 182-369 [facility] Comment on above: Performed By: #### C BC1 #### [facility] [address] [place] [address] RBC #/vol (Bld) 3.94 mil/cmm Normal 3.93-5.22 [facility] Comment on above: Performed By: #### C BC1 #### [facility] [address] [place] [address] RDW SD 40.6 fl Normal 36.4-46.3 [facility] Comment on above: Performed By: #### C BC1 #### [facility] [address] [place], [place] [address] WBC #/vol (Bld) 9.85 thou/cmm Normal 3.98-10.04 [facility] Comment on above: Performed By: #### C BC1 #### [facility] [address] [place], [place] [address] LD NOTEon 11-30-2017 LD NOTE HNO ID: [id number] thor: Marie Lema (Res) LendeService: ObstetricsAuthor Type: ResidentType: LANDD Delivery NoteFiled: 11/30/2017 6:19 PMNote Text: -------Attestation signed by Serenity Maldonado MD at 12/01/2017 6:04 PMI saw and evaluated the patient. I reviewed the resident's note and agree,except that patient seen by [facility] (patient has FAS, fetus with multipleanomlaies) service, consult placed to [facility] for management of labor AND delivery.Essential primip presented at 39w with PROM, had Pugh balloon AND Pitocin foraugmentaion. Late in labor noted tachycardia that improved with IVFB ANDTylenol (mother rico had elevated temp but felt warm). [facility] [place] [facility] N[facility] team for evaluation (was allowed tohave delivery to abdomen AND 30 sec delay for cord clamping). Pushed well AND hadSVD of a viable female (APGARS 8,9, weight of 3200g/7#1oz) over intactperineum. Uterus slightly boggy after delivery, responded to massage AND Pitocininfusion, EBL ~500cc.Serenity Maldonado MD ----OBSTETRICSDELIVERY SUMMARY - VAGINAL DELIVERYGestational Age at Delivery: 9y3rBzilqxv Date: 11/30/2017Service Time: 1800Keegan, Bg Zuleika Dillard [[id number]]Labor EventsRupture Date: 11/30/17Rupture Time: 224Rupture Type: PROMFluid [...] JonenDATE: November 30, 2017 : 6:[address] [facility] NURSING PROGon 11-30-2017 NURSING PROG HNO ID: [id number] thor: Marguerite (Rn) Sandy Albarranice: (none)Author Type: Registered NurseType: Nursing Progress NoteFiled: 11/30/2017 7:06 PMNote Text: INTRODUCED SELF TO PATIENT AND SUPPORT PERSONS. PLAN OF CARE DISCUSSED.ASSESSMENT PERFORMED. PATIENT DENIES COMPLAINTS. Normal [facility] NURSING PROG HNO ID: [id number] thor: Darcie (Rn) ANEUDY Landeroservice: NursingAuthor Type: Registered NurseType: Nursing Progress NoteFiled: 11/30/2017 10:03 AMNote Text:Patient up to shower for comfort. Boyfriend at side. On telemetrymonitors. RN remains in room. FHR difficult to maintain continuoustracing Normal [facility] NURSING PROG HNO ID: [id number] Author: Norah (Rn) KARRI Eastman Service: Nursing Author Type: Registered Nurse Type: Nursing Progress Note Filed: 11/30/2017 7:18 AM Note Text: Report given to Darcie DURAN and care transferred at this time. Normal [facility] PROCEDUREon 11-30-2017 PROCEDURE HNO ID: [id number] thor: Aaron (Casket Upholsterer) José Miguele: AnesthesiologyAuthor Type: Nurse AnesthetistType: ProceduresFiled: 11/30/2017 12:30 [...] Catheter in Epidural Space: 5 cmInterspace: approximately L2-A8Kqenhk of Attempts: 1Wet Tap Complication: NoDural Puncture [...] nurses' documentation for additional vitals.SIGNATURE: Hema Cuellar APRN.LATIN AMERICAN STUDIES PROFESSOR PATIENT NAME: Zuleika eBcerrilnDATE: November 30, 2017 : 12:27 PM PAGER/CONTACT #: [facility] PROGRESSon 11-30-2017 PROGRESS HNO ID: [id number] thor: Marie Lema (Res) LendeService: ObstetricsAuthor Type: ResidentType: Progress NotesFiled: 11/30/2017 5:04 PMNote Text:UpdatePatient is pushing in the OR. Cat I FHRT with baseline around 160s. updated and in house.Franki Neri 2017 5:[address] [facility] PROGRESS HNO ID: [id number] Author: Darcie (Rn) KARRI Landeros Service: Nursing Author Type: Registered Nurse Type: Progress Notes Filed: 11/30/2017 3:29 PM Note Text: Patient feeling pressure, cervical exam 9.5 cm. NICU notified. Patient feels warm, but temp 36.9. [facility] PROGRESS HNO ID: [id number] thor: Marie Lema (Res) LendeService: ObstetricsAuthor Type: [...] 0853 : Darcie (Rn) Tigre RN)Rupture Time: 022 (11/30/17 0853 : Darcie (Rn) Tigre RN)Amniotic Fluid Color: Clear (11/30/17 0853 : Darcie (Rn) Tigre, RN)Additional Findings: NoneFETAL MONITORINGFHT: 150s Moderate/acelerations present/early decelerations/isolated latedecelerationsToco: 2-3 minutesCategory: IILABSDiagnostic tests reviewed for today's visit: Most recent labs and imagingresults.Assessment/ Plan27 year old EGA:39w0d. Admitted for augmentation for PROM1. GBS-2. Pit per protocol3. Epi in- pt comfortable4. s/p FB5. [place] [address]. anomalies- prominent cisterna magna, bilateral periventrcularnodular heterotopia, [...] EF 55%.10. H/o maternal clubfoot-s/p repair as gzezzv83. H/o tobacco abuse12. Cat II- Isolate late decelerations. Moderate variability. Continuingto make cervical change. Not on Cat II protocol.SIGNATURE: Marie Hassan DO PATIENT NAME: Zuleika BecerrilnDATE: November 30, 2017 : 1:35 PM PAGER/CONTACT #: [phone] Normal [facility] PROGRESS HNO ID: [id number] thor: Yolanda (Res) SnyderService: ObstetricsAuthor Type: ResidentType: [...] (%): 80 (11/30/17 1309 : Yolanda (Res) Barobsa)Station: -2 (11/30/17 1309 : Yolanda (Res) Barbosa)Presentation: [...] pt comfortable4. s/p FB5. [place] [address]. anomalies- prominent cisterna magna, bilateral periventrcularnodular heterotopia, [...] : 1:11 PM PAGER/CONTACT #: [phone] Normal [facility] PROGRESS HNO ID: [id number] thor: Yolanda Almonteervice: ObstetricsAuthor Type: ResidentType: Progress NotesFiled: 11/30/2017 11:07 AMNote Text:OBSTETRICSINTRAPARTUM PROGRESS NOTESERVICE DATE: November 30, 2017SERVICE TIME: 11:05 AMSubjectivePatient with no complaints.ObjectiveLAST VITALS:Pulse BP Resp O2 Sat Temp Pain 75 142/75 18 100 % 36.6 ?C (97.9 ?F) /10PHYSICAL EXAM:CERVICAL EXAM:Last Exam Notes: Dilation: 1 (11/30/17 [...] Pit per protocol3. [place] [address]. s/[place] [address]. anomalies- prominent cisterna magna, bilateral periventrcularnodular heterotopia, [...] EF 55%.10. H/o maternal clubfoot-s/p repair as srwaee84. H/o tobacco abuseSIGNATURE: Yolanda Barbosa DO PATIENT NAME: Zuleika BecerrilnDATE: November 30, 2017 : 11:05 AM PAGER/CONTACT #: [phone] [facility] PROGRESS HNO ID: [id number] Author: Darcie (Rn) KARRI Landeros Service: Nursing Author Type: Registered Nurse Type: Progress Notes Filed: 11/30/2017 10:35 AM Note Text: Unable to find labwork for chart. [facility] PROGRESS HNO ID: [id number] thor: Marie Lema (Res) JabiereService: ObstetricsAuthor Type: [...] Lema (Res) Sonya)Station: -2 (11/30/1748 : Marie Hassan)Presentation: (not recorded)MEMBRANES:Status: Membrane Status: Premature (11/30/17 0853 : Darcie (Rn) TigreRN)Rupture Date: 11/30/17 (11/30/17 0853 : Darcie MagañaRn) Tigre RN)Rupture Time: 0225 (11/30/17 0853 : Darcie (Rn) Tigre RN)Amniotic Fluid Color: Clear (11/30/17 0853 : Darcie (Rn) Tigre RN)Additional Findings: NoneFETAL MONITORINGFHT: 135s Moderate/acelerations present/decelerations absentToco: 2-4 minutesCategory: ILABSDiagnostic tests reviewed for today's visit: Most recent labs and imagingresults.Assessment/ Plan27 year old EGA:39w0d. Admitted for augmentation for PROM1. GBS-2. Pit per protocol3[place] [address]. [place] [address]. anomalies- prominent cisterna magna, bilateral periventrcularnodular heterotopia, [...] 30, 2017 : 10:31 AM PAGER/CONTACT #: 1946 [facility] PROGRESS HNO ID: [id number] thor: Darcie Washington) Tigre, ANEUDYervice: NursingAuthor Type: Registered NurseType: Progress NotesFiled: 11/30/2017 10:13 AMNote Text:Patient remains in shower. RN and boyfriend at side. EFM on telemetryand adjusted while patient in shower. Difficult to keep baby on. Normal [facility] PROGRESS HNO ID: [id number] thor: Yolanda (Res) GabrielaerService: ObstetricsAuthor Type: ResidentType: Progress NotesFiled: 11/30/2017 7:35 AMNote Text:In to place FB. Pt tolerated procedure well. Continues to leak clearfluid. Pt uncomfortable with contractions.Cat I FHT, reactive with accelsToco: 2-5 minsHeather Romina, PGY-1Obstetrics and GynecologyPager [phone]/7:34 AM Normal [facility] Type and Screenon 11-30-2017 ABO group Nom (Bld) A [facility] Comment on above: Performed By: #### T &S #### [place] [id number] Comment See Below [facility] Comment on above: Result Comment: Scre en &/or Xmatch expires in 3 days at 12 midnight. Redraw patient at that time. Performed By: #### T &S #### [place] [address] RH Type Positive [facility] Comment on above: Performed By: #### T &S #### [place] [address] Progress Noteon 11-28-2017 Bleach Machine Operator Authentication Interface Message Text Routine VisitSubjective: Zuleika Villalta is being seen today for her obstetrical visit. She is at [id number]. Patient reports no complaints. Movement: normal. She [...] [facility]. Supervision of other high risk , antepartum 10/08/2017 PLAN OF CAREMD/OB APPOINTMENTSHow often should patient be evaluated? q 2 weeks from 32 to 36 weeks thenweekly until deliveryWork restrictions: noneFETAL EVALUATIONAntenatal surveillance: weekly BPPs starting at 32 weeks.Ultrasound: Serial growth ultrasounds every 4 weeks.DELIVERY PLANHospital: [facility]Induction at 39 weeks; CYTOTEC IOL 12-02-17 at 5 pm at [facility]. Pre-Procedure formdone (CG)GBS culture: neg 11/07/17Contraception: [...] [facility] POC reviewedShe would like her follow up and contraception with Dr. Ivan.The total patient time of the visit was 15 minutes, of which greater than 50% ofthe time was spent counseling and coordinating care. Normal [facility] Progress Noteon 11-22-2017 Bleach Machine Operator Authentication Interface Message Text [facility] plan of care faxed to [facility] in event pt would arrive for urgent management. Normal [facility] Progress Noteon 11-21-2017 Bleach Machine Operator Authentication Interface Message Text Routine VisitSubjective: Zuleika Villalta is being seen today for her obstetrical visit. She is at [id number]. Patient reports that she went to [facility] last night due toconcerns for [...] Serial growth ultrasounds every 4 weeks.DELIVERY PLANHospital: [facility] HospitalInduction at 39 weeks; CYTOTEC IOL 12-02-17 at 5 pm at [facility]. Pre-Procedure formdone (CG)GBS culture: neg 11/07/17Contraception: [...] [facility] Progress Noteon 11-12-2017 Bleach Machine Operator Authentication Interface Message Text Call from [facility] that pt presented there in labor. [facility] plan of care and ACOGs faxed [...] Comment on above: Performed By: #### G [facility] ####[address] [phone] Progress Noteon 11-07-2017 Bleach Machine Operator Authentication Interface Message Text Routine VisitSubjective: Zuleika Villalta is being seen today for her obstetrical visit. She is at 17v4vvarrredac. Patient reports occasional nausea. No emesis. She [...] Serial growth ultrasounds every 4 weeks.DELIVERY PLANHospital: [facility] HospitalInduction at 39 weeksGBS culture: collected and [...] [facility] Progress Noteon 10-24-2017 Bleach Machine Operator Authentication Interface Message Text Routine VisitSubjective: [...] Serial growth ultrasounds every 4 weeks.DELIVERY PLANHospital: [facility] HospitalInduction at 39 weeksGBS culture:Contraception: Considering LARC [...] [facility] Progress Noteon 10-15-2017 Bleach Machine Operator Authentication Interface Message Text Ped selection made. Updated prenatals Normal [facility] Progress Noteon 10-08-2017 Bleach Machine Operator Authentication Interface Message Text Thank you [...] size. There was a patent foramen ovale, opvublpuf-iq-yahp shunt.Tricuspid valve:Normal tricuspid valve. There was normal [...] fetuses and in fetuses with CHD and hlscfqcaygktc35z74, the ratio being below 0.3 )Impression and recommendations.1) Abnormal 3-vessel view, ascending aorta was moderately dilated. 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 thymic thoracic ratio (TT-ratio)=0.1 ( TT-ratio 0.44 in normal fetuses and in fetuses with CHD and tqpvnktlswkqg69g70, the ratio being below 0.3 )5) Normal [...] treatments, follow up fetalechocardiograms and follow ups.10) Berry Echocardiogram prior to the discharge from the nursery or earlier ifcardiac condition/status changes in any way. Berry follow up and treatmentshould be determined on the basis of the findings on the initial echocardiogram.Counseling and/or coordination of care was greater than 35 minutes which is morethan 50% of the total time of 60 minutes spent on the encounter. Normal [facility] Bleach Machine Operator Authentication Interface Message Text Initial VisitSubjective: [...] Serial growth ultrasounds every 4 weeks.DELIVERY PLANHospital: [facility] HospitalInduction at 39 weeksGBS culture:Contraception:TDAP recommended Constipation [...] weeks for OB visit and BPP in [place].Oksana Amado MD Normal [facility] Cytogenomic Microarray Nivia sis of Bloodon 09-10-2017 Cytogenomic Microarray Analysis of Blood SEE BELOW Normal [facility] Comment on above: Result Comment: SPEC IMEN: BLOODCLINICAL INFORMATION: Learning disability[F81.9]TEST: CYTOGENOMIC MICROARRAY ANALYSISRESULT SUMMARY:Normal femaleNOMENCLATURE:arr(1-22,X)[id number] & COMMENTS:The cytogenomics microarray analysis indicated no [...] whole genome microarray analysis was performed the FDA-clearedNano Think(R) Dx platform, which contains approximately 2.7million markers, including 1,953,246 unique non-polymorphic copy numberprobes and 743,304 single nucleotide polymorphism (SNP) probes. Thegenome-wide functional resolution of this assay is approximately 25 kbfor deletions and 50 kb for duplications. This microarray andassociated software (Chromosome Analysis Suite Dx) were manufactured byHomeWellness and used by the [facility]ogen[facility]osticsLaboratories of [facility] for the purpose ofidentifying DNA copy [...] further information regarding intendeduse and limitations, see [email or web address].Note: The Cytogenetics Laboratory has this patient's blood [...] additional testing. 09/19/2017 BIGG GARCIA, PH.D., [facility], [facility] 09/19/2017 Performed By: #### M [facility] ####[facility] [address] [place], [place] [phone] MRI (SINGLE)on 018 MRI (SINGLE) MRI (SINGLE)CL [...] [facility] Progress Noteon 09-10-2017 Bleach Machine Operator Authentication Interface Message Text The total patient time of the visit was 15 minutes, of which greater than 50% of the time was spent counseling and coordinating care. Normal [facility] Auto Diffon 09-03-2017 Basophils Auto #/vol (Bld) 0.1 E3/mcL Normal 0.0-0.2 [facility] Comment on above: Order Comment: Order Added by Discern Expert. Performed By: #### 2 [id number] ####KADEN [address] [place] [address] Basophils/100 WBC Auto (Bld) 0.5 % Normal 0.0-2.0 [facility] Comment on above: Order Comment: Order Added by Discern Expert. Performed By: #### 2 615371 ####KADEN [address]MzgYqkp[address] [place] [address] Eos Absolute 0.0 E3/mcL Normal 0.0-0.7 [facility] Comment on above: Order Comment: Order Added by Discern Expert. Performed By: #### 2 601548 ####KADEN [address]leCwjq[address] [place] [address] Eosinophils/100 leukocytes 0.4 % Normal 0.0-11.0 [facility] Comment on above: Order Comment: Order Added by Discern Expert. Performed By: #### 2 741275 ####KADEN [address] [place] [address] Lymphocytes 1.3 E3/mcL Normal 1.2-3.4 [facility] Comment on above: Order Comment: Order Added by Discern Expert. Performed By: #### 2 754013 ####KADEN [address]Tp[address]ifh[address] [place] [address] Lymphocytes/100 leukocytes 13.1 % Low 20.0-55.0 [facility] Comment on above: Order Comment: Order Added by Discern Expert. Performed By: #### 2 190468 ####KADEN [address]ZszYcgy[address] [place] [address] Laurens Absolute 0.4 E3/mcL Normal 0.0-0.7 [facility] Comment on above: Order Comment: Order Added by Discern Expert. Performed By: #### 2 852735 ####KADEN [address]SmtHrun[address] [place] [address] Monocytes/100 leukocytes 4.3 % Normal 0.0-10.0 [facility] Comment on above: Order Comment: Order Added by Discern Expert. Performed By: #### 2 555097 ####KADEN [address]IsdJabw[address] [place] [address] Neutro Absolute 8.4 E3/mcL High 1.4-6.5 [facility] Comment on above: Order Comment: Order Added by Discern Expert. Performed By: #### 2 178306 ####KADEN [address] [place] [address] Neutro Auto 81.7 % High 37.0-75.0 [facility] Comment on above: Order Comment: Order Added by Discern Expert. Performed By: #### 2 577697 ####KADEN [address] [place] [address] CBC w/ Auto Diffon 8 Erythrocyte distribution width Auto Ratio (RBC) 13.1 % Normal 11.5-14.5 [facility] Comment on above: Performed By: #### 2 019952 ####KADEN [address] [place] [id number] Erythrocytes (RBC) 3.90 E6/mcL Normal 3.90-5.40 [facility] Comment on above: Performed By: #### 2 219439 ####KADEN [address] [place] [address] Hematocrit (HCT) 34.7 % Low 36.0-48.0 [facility] Comment on above: Performed By: #### 2 712333 ####KADEN [address] [place] [address] Hemoglobin mass conc (Bld) 11.8 g/dL Low 12.0-16.0 [facility] Comment on above: Performed By: #### 2 075566 ####KADEN [address] [place] [address] MCH 30.3 pg Normal 27.0-31.0 [facility] Comment on above: Performed By: #### 2 454360 ####KADEN [address] [place] [address] MCHC mass conc (RBC) 34.2 g/dL Normal 33.0-37.0 [facility] Comment on above: Performed By: #### 2 409927 ####KADEN [address] [place] [address] MCV 88.8 fL Normal 78.0-100.0 [facility] Comment on above: Performed By: #### 2 904941 ####KADEN [address] [place] [id number] Platelet mean volume (PMV) 7.3 fL Low 7.4-11.0 [facility] Comment on above: Performed By: #### 2 852709 ####KADEN [address] [place] [address] Platelets 218 E3/mcL Normal 130-400 [facility] Comment on above: Performed By: #### 2 084733 ####KADEN [address] [place] [address] WBC (Leukocytes) 10.2 E3/mcL Normal 3.6-11.0 [facility] Comment on above: Performed By: #### 2 092079 ####KADEN [address] [place] [address] Gest Scr Glu 1 Hron 09-04-19 18 Glucose mass conc 113 mg/dL Normal 70-140 [facility] Comment on above: Performed By: #### 2 280832 ####KADEN [address] [place] [address] FISH Probeon 08-13-2017 Protein mass conc SEE BELOW Normal [facility] Comment on above: Result Comment: SPEC IMEN: BLOOD - [id number] INFORMATION:TEST: FISH Analysis of the DiGeorge/VCFS Region [...] the DARREN gene (3'non-coding region of TUPLE1, [id number], and [id number]. The Vysis LSI ARSAspectrum Green Probe includes [...] J Med Barbara 66:250-256,1996. BIGG GARCIA, PH.D., [facility], [facility] 08/16/2017 Performed By: #### F MARIA ####[address] [phone] Progress Noteon 08-13-2017 Bleach Machine Operator Authentication Interface Message Text Met with patient and FOB Aaron Jose CarlosKelsi for enlarged aortic root. Medical, [...] findingsWork History: unemployed. Information on [facility] services given.Consent to share information with [facility] team, OB and sort line worker signed. Pt plans to deliver in [place] with [facility]. Currently with Dr. Shekhar Dyson.[employer] Architect is undecided. [facility] and discussed importance ofselection [...] coordinating care. Normal [facility] Bleach Machine Operator Authentication Interface Message Text Thank you [...] size. There was a patent foramen ovale, ouptsniis-zt-hzzk shunt.Tricuspid valve:Normal tricuspid valve. There was normal [...] [facility] Progress Noteon 07-18-2017 Bleach Machine Operator Authentication Interface Message Text [facility] MATERNAL- MEDICINE CONSULTReferring/Requestin g Provider: Christian [...] no palpitations. She usually doesnot see a regulatory scientist, but did have a recent echo due to .OB HistoryGravida Para Term AB Living2 0 1SAB TAB Ectopic Multiple Live Births1# Outcome Date GA Lbr Nam/2nd Weight Sex Delivery Anes PTL Lv2 Current1 2014Obstetric CommentsNo D&C needed-miscarried very early.Past Medical [...] as a child 07/18/2017 Consider evaluation with psychosocial rehabilitation counselor to assess for any needs duringpregnancy or after. Will have genetic consult with [facility] evaluation. cardiac anomaly complicating , antepartum 07/18/2017 Dilated aortic root seen on ultrasound along with large umbilical cordvarix, dolichocephaly DW Dr. Zazueta, verbal order to refer to [facility] Will be scheduled with pediatric cardiology. Also, patient and family members have a history of learning disabilities,including an individual learning plan in school. She will talk to her familymembers and bring as much information as is available for her genetics consult.She has transportation to [place] and is willing to be [facility].The total patient time of the visit was 30 minutes, of which was greater than50% of the time was spent counseling and coordinating care. Normal [facility] IGP W/hpv Rfx [id number] 05-07 Diagnosis: See Ref Lab Report Normal [facility] Comment on above: Order Comment: Thin Prep. Performed By: #### 2 [id number] ####KADEN BairdGsrIram[address] [place] [address] C Urineon 05-03-2017 C Urine Final Report: Normal skin alonso isolated Normal [facility] Comment on above: Performed By: #### 2 140754 ####KADEN [address]NvfYdff[address] [place] [address] RPRon 05-03-2017 RPR Ql Non-Reactive Normal Non-Reacti ve [facility] Comment on above: Performed By: #### 2 337502 ####KADEN BairdPwtQuls0284 [place] [address] Hep Bs Agon 05-02-2017 BSA (Body Surface Area) Negative Normal Negative [facility] Comment on above: Result Comment: Perf ormed At: CB [facility] [address] [place], [place] [id number] Vincent PhD Ph:[phone] Performed By: #### 2 225917 ####KADEN [address]airdLhqXqoo4[address] [place] [address] ABO/Rh Echoon 05-01-2017 ABO/Rh E Interp... Positive Normal [facility] Comment on above: Performed By: #### 2 353824 ####KADEN BairdSyaEyfz[address] [place] [address] Antibody Screen Cap...on Screen Interp... Negative Normal [facility] Comment on above: Performed By: #### 2 427975 ####KADEN UwbXanu[address]99 [place] [address] Auto Diffon 05-01-2017 Basophils Auto #/vol (Bld) 0.0 E3/mcL Normal 0.0-0.2 [facility] Comment on above: Order Comment: Order Added by Discern Expert. Performed By: #### 2 221650 ####KADEN Urinalysis Manual [address] [place] [address] Basophils/100 WBC Auto (Bld) 0.4 % Normal 0.0-2.0 [facility] Comment on above: Order Comment: Order Added by Discern Expert. Performed By: #### 2 579329 ####KADEN Urinalysis Manual [address] [place] [address] Eos Absolute 0.1 E3/mcL Normal 0.0-0.7 [facility] Comment on above: Order Comment: Order Added by Discern Expert. Performed By: #### 2 085163 ####KADEN Urinalysis Manual [address] [place] [address] Eosinophils/100 leukocytes 0.7 % Normal 0.0-11.0 [facility] Comment on above: Order Comment: Order Added by Discern Expert. Performed By: #### 2 412783 ####KADEN Urinalysis Manual [address] [place] [address] Lymphocytes 1.8 E3/mcL Normal 1.2-3.4 [facility] Comment on above: Order Comment: Order Added by Discern Expert. Performed By: #### 2 066003 ####KADEN Urinalysis Manual [address] [place] [address] Lymphocytes/100 leukocytes 17.1 % Low 20.0-55.0 [facility] Comment on above: Order Comment: Order Added by Discern Expert. Performed By: #### 2 607543 ####KADEN Urinalysis Manual [address] [place] [address] Lau[place] Absolute 0.5 E3/mcL Normal 0.0-0.7 [facility] Comment on above: Order Comment: Order Added by Discern Expert. Performed By: #### 2 777880 ####KADEN Urinalysis Manual [address] [place] [address] Monocytes/100 leukocytes 5.0 % Normal 0.0-10.0 [facility] Comment on above: Order Comment: Order Added by Discern Expert. Performed By: #### 2 240290 ####KADEN Urinalysis Manual [address] [place] [address] Neutro Absolute 8.0 E3/mcL High 1.4-6.5 [facility] Comment on above: Order Comment: Order Added by Discern Expert. Performed By: #### 2 994322 ####K[place] [address] Neutro Auto 76.8 % High 37.0-75.0 [facility] Comment on above: Order Comment: Order Added by Discern Expert. Performed By: #### 2 912592 ####KADEN Urinalysis Manual [address] [place] [address] CBC w/ Auto Diffon 7 Erythrocyte distribution width Auto Ratio (RBC) 15.2 % High 11.5-14.5 [facility] Comment on above: Performed By: #### 2 646601 ####KADEN Urinalysis Manual [address]xrrux[address] [place] [address] Erythrocytes (RBC) 4.90 E6/mcL Normal 3.90-5.40 [facility] Comment on above: Performed By: #### 2 358221 ####KADEN Urinalysis Manual [address] [place] [address] Hematocrit (HCT) 41.1 % Normal 36.0-48.0 [facility] Comment on above: Performed By: #### 2 330227 ####KADEN Urinalysis Manual [address]uz[address] [place] [address] Hemoglobin mass conc (Bld) 13.5 g/dL Normal 12.0-16.0 [facility] Comment on above: Performed By: #### 2 549854 ####KADEN Urinalysis Manual [address] [place] [address] MCH 27.5 pg Normal 27.0-31.0 [facility] Comment on above: Performed By: #### 2 784227 ####KADEN Urinalysis Manual [address] [place], [place] [address] MCHC mass conc (RBC) 32.8 g/dL Low 33.0-37.0 [facility] Comment on above: Performed By: #### 2 696774 ####KADEN Urinalysis Manual [address] [place] [address] MCV 83.9 fL Normal 78.0-100.0 [facility] Comment on above: Performed By: #### 2 050906 ####KADEN Urinalysis Manual [address] [place] [address] Platelet mean volume (PMV) 8.0 fL Normal 7.4-11.0 [facility] Comment on above: Performed By: #### 2 109852 ####KADEN Urinalysis Manual [address] [place] [address] Platelets 246 E3/mcL Normal 130-400 [facility] Comment on above: Performed By: #### 2 968940 ####KADEN Urinalysis Manual X[address] [place], [place] [address] WBC (Leukocytes) 10.4 E3/mcL Normal 3.6-11.0 [facility] Comment on above: Performed By: #### 2 055337 ####KADEN Urinalysis Manual [address] [place] [address] Chlamydia GC by PCRon 2016 Chlamydia by PCR. Not Detected Normal Not Detected [facility] Comment on above: Result Comment: Xper t CT/NG Assay performance has not been evaluated in patients less than 14 years of age. Performed By: #### 2 407732 ####KADEN [address]Afij[address] [place] [address] Gonorrhoeae by PCR Not Detected Normal Not Detected [facility] Comment on above: Result Comment: Xper t CT/NG Assay performance has not been evaluated in patients less than 14 years of age. Performed By: #### 2 569535 ####KADEN BairdGdbLihs[address]67 [place] [address] HIV-1/2 Ag/Abon 05-01-2017 HIV-1/2 Ag/Ab Non-Reactive Normal Non-Reacti ve [facility] Comment on above: Performed By: #### 2 020765 ####KADEN Urinalysis Manual [address] [place] [address] Rubella IgG Lvlon 05-01-2017 Rubella IgG Lvl 50.8 (POS) Normal [facility] Comment on above: Result Comment: <10I U/ml NON REACTIVE: NOT [id number] IU/ml RUBELLA SPECIFIC AB PRESENT, EVALUATEFURTHER TO DETERMINE IMMUNE STATUS >15 IU/ml REACTIVE, IMMUNE Performed By: #### 2 619608 ####KADEN [address]Cest[address] [place] [address] Auto Diffon 04-22-2017 Basophils Auto #/vol (Bld) 0.1 E3/mcL Normal 0.0-0.2 [facility] Comment on above: Order Comment: Order Added by Discern Expert. Performed By: #### 2 324055 ####KADEN Urinalysis Manual [address] [place] [address] Basophils/100 WBC Auto (Bld) 0.6 % Normal 0.0-2.0 [facility] Comment on above: Order Comment: Order Added by Discern Expert. Performed By: #### 2 058957 ####KADEN Urinalysis Manual [address] [place] [address] Eos Absolute 0.0 E3/mcL Normal 0.0-0.7 [facility] Comment on above: Order Comment: Order Added by Discern Expert. Performed By: #### 2 906096 ####KADEN Urinalysis Manual [address] [place] [address] Eosinophils/100 leukocytes 0.2 % Normal 0.0-11.0 [facility] Comment on above: Order Comment: Order Added by Discern Expert. Performed By: #### 2 956315 ####KADEN Urinalysis Manual X[address] [place] [address] Lymphocytes 1.5 E3/mcL Normal 1.2-3.4 [facility] Comment on above: Order Comment: Order Added by Discern Expert. Performed By: #### 2 155659 ####KADEN Urinalysis Manual [address]re[address] [place] [address] Lymphocytes/100 leukocytes 10.8 % Low 20.0-55.0 [facility] Comment on above: Order Comment: Order Added by Discern Expert. Performed By: #### 2 200384 ####KADEN Urinalysis Manual [address] [place] [address] Lau[place] Absolute 0.6 E3/mcL Normal 0.0-0.7 [facility] Comment on above: Order Comment: Order Added by Discern Expert. Performed By: #### 2 789127 ####KADEN Urinalysis Manual [address] [place] [address] Monocytes/100 leukocytes 4.4 % Normal 0.0-10.0 [facility] Comment on above: Order Comment: Order Added by Discern Expert. Performed By: #### 2 161486 ####KADEN Urinalysis Manual [address]flu[address] [place] [address] Neutro Absolute 11.3 E3/mcL High 1.4-6.5 [facility] Comment on above: Order Comment: Order Added by Discern Expert. Performed By: #### 2 [id number] ####[place] [address] Neutro Auto 84.0 % High 37.0-75.0 [facility] Comment on above: Order Comment: Order Added by Discern Expert. Performed By: #### 2 [id number] ####KADEN Urinalysis Manual [address] [place] [address] BMPon 04-22-2017 BUN/Creatinine Ratio Unable to calc Normal 5.4-30.0 [facility] Comment on above: Performed By: #### 2 [id number] ####[place] [address] Creatinine mg/dL Low 0.6-1.3 [facility] Comment on above: Performed By: #### 2 477957 ####KADEN Urinalysis Manual Imcvshxag[address] [place] [address] Urea nitrogen 7 mg/dL Normal 7-18 [facility] Comment on above: Performed By: #### 2 516749 ####KADEN Urinalysis Manual Mdxjuzrbqt5004 [place] [address] Calcium 9.6 mg/dL Normal 8.4-10.2 [facility] Comment on above: Performed By: #### 2 468708 ####KADEN Urinalysis Manual Ejjbwdtpve2463 [place] [address] Chloride 103 mmol/L Normal 98-107 [facility] Comment on above: Performed By: #### 2 650237 ####KADEN Urinalysis Manual Wwvygqwwgi5989 [place] [address] CO2 21.7 mmol/L Low 24.0-30.0 [facility] Comment on above: Performed By: #### 2 976088 ####KADEN Urinalysis Manual Vhemputenc[address] [place] [address] Glucose mass conc 89 mg/dL Normal 70-99 [facility] Comment on above: Performed By: #### 2 686766 ####KADEN Urinalysis Manual Uldssjsrot5046 [place] [address] Potassium molar conc 3.6 mmol/L Normal 3.5-5.1 [facility] Comment on above: Performed By: #### 2 955426 ####KADEN Urinalysis Manual Ixpmtadnfv8477 [place] [address] Sodium 136 mmol/L Normal 136-145 [facility] Comment on above: Performed By: #### 2 390205 ####KADEN Urinalysis Manual Afbtumecdo9303 [place] [id number] CBC w/ Auto Diffon 7 Erythrocyte distribution width Auto Ratio (RBC) 14.8 % High 11.5-14.5 [facility] Comment on above: Performed By: #### 2 805592 ####KADEN Urinalysis Manual Tsbyqxnhhm1927 [place] [id number] Erythrocytes (RBC) 4.96 E6/mcL Normal 3.90-5.40 [facility] Comment on above: Performed By: #### 2 192083 ####KADEN Urinalysis Manual Wrxbkzgohb[address] [place] [address] Hematocrit (HCT) 40.9 % Normal 36.0-48.0 [facility] Comment on above: Performed By: #### 2 419431 ####KADEN Urinalysis Manual Tytwtshxdq398[address] [place] [address] Hemoglobin mass conc (Bld) 13.5 g/dL Normal 12.0-16.0 [facility] Comment on above: Performed By: #### 2 213704 ####KADEN Urinalysis Manual Pnobwjggna[address] [place] [address] MCH 27.2 pg Normal 27.0-31.0 [facility] Comment on above: Performed By: #### 2 401396 ####KADEN Urinalysis Manual Snysqovnqv007[address] [place] [address] MCHC mass conc (RBC) 33.0 g/dL Normal 33.0-37.0 [facility] Comment on above: Performed By: #### 2 943234 ####KADEN Urinalysis Manual Ppyyzjhfdq[address] [place] [address] MCV 82.4 fL Normal 78.0-100.0 [facility] Comment on above: Performed By: #### 2 539987 ####KADEN Urinalysis Manual Gkwqvvhazx[address] [place] [address] Platelet mean volume (PMV) 8.0 fL Normal 7.4-11.0 [facility] Comment on above: Performed By: #### 2 378261 ####KADEN Urinalysis Manual Bikvrnnkzv[address] [place] [address] Platelets 237 E3/mcL Normal 130-400 [facility] Comment on above: Performed By: #### 2 564506 ####KADEN Urinalysis Manual Cwsqufaaba[address] [place], [place] [address] WBC (Leukocytes) 13.5 E3/mcL High 3.6-11.0 [facility] Comment on above: Performed By: #### 2 163918 ####KADEN Urinalysis Manual Fhqdjfiikn55[address] [place] [address] UA Completeon 04-22-2017 UA Blood Negative Normal Negative [facility] Comment on above: Performed By: #### 2 506653 ####KADEN Urinalysis Manual Cfsrikxzdc1538 [place] [address] UA Ascorbic Acid 40 mg/dL High <=19 [facility] Comment on above: Performed By: #### 2 005721 ####KADEN Urinalysis Manual [address]uz[address]on[address] [place] [address] UA Bacteria 3+ /HPF Abnormal None [facility] Comment on above: Performed By: #### 2 133779 ####KADEN Urinalysis Manual Uxtgdskclj[address] [place] [address] UA Clarity SltCloudy Abnormal Clear [facility] Comment on above: Performed By: #### 2 325223 ####KADEN Urinalysis Manual Aunvtqcjer[address] [place] [address] UA Leuk Est Negative Normal Negative [facility] Comment on above: Performed By: #### 2 364530 ####KADEN Urinalysis Manual Ldsqltuoik[address] [place] [address] UA Mucous Few Abnormal Trace [facility] Comment on above: Performed By: #### 2 156266 ####KADEN Urinalysis Manual Lznaltxnvr18[address] [place] [address] UA Nitrite Negative Normal Negative [facility] Comment on above: Performed By: #### 2 072834 ####KADEN Urinalysis Manual Kwiyaohosa[address] [place] [address] UA pH 8.0 Normal 4.6-8.0 [facility] Comment on above: Performed By: #### 2 750420 ####KADEN Urinalysis Manual Rsbjfr[address]hs[address] [place] [address] UA Protein Negative Normal Negative [facility] Comment on above: Performed By: #### 2 153787 ####KADEN Urinalysis Manual Cqipzztxfh[address] [place], [place] [address] UA Spec Grav 1.012 Normal 1.003-1.03 0 [facility] Comment on above: Performed By: #### 2 163039 ####KADEN Urinalysis Manual Blfmsqyowx0290 [place] [address] UA Squam Epithelial 0-5 Normal 0-5 [facility] Comment on above: Performed By: #### 2 527838 ####KADEN Urinalysis Manual Xilliliygd9739 [place] [address] UA Urobilinogen Negative Normal [facility] Comment on above: Performed By: #### 2 586922 ####KADEN Urinalysis Manual Tmbkssfsfx0778 [place] [address] UA WBC 0-5 Normal 0-5 [facility] Comment on above: Performed By: #### 2 021581 ####KADEN Urinalysis Manual Aavqnztwag3416 [place] [address] Urine, color Yellow Normal Yellow [facility] Comment on above: Performed By: #### 2 712138 ####KADEN Urinalysis Manual Yhcgrfnkcy[address] [place] [address] Urine, glucose Negative Normal Negative [facility] Comment on above: Performed By: #### 2 652560 ####KADEN Urinalysis Manual Lwkptabvpl38[address] [place] [address] Urine, ketones presence 1+ Abnormal Negative [facility] Comment on above: Performed By: #### 2 625294 ####KADEN Urinalysis Manual Hxxqkrafhq[address] [place] [address] Urine, urobilinogen Negative Normal Negative [facility] Comment on above: Performed By: #### 2 681515 ####KADEN Urinalysis Manual Hzbkcrjohf43[address] [place] [address] eGFRon 04-22-2017 eGFR AA >60 Normal [facility] Comment on above: Order Comment: Order added by Discern Expert. Performed By: #### 2 445247 ####KADEN Urinalysis Manual Rpcpujrtpi1309 [place] [id number] eGFR (non-black) mL/min/{1.73_m2} Normal [facility] Comment on above: Order Comment: Order added by Discern Expert. Performed By: #### 2 605679 ####KADEN Urinalysis Manual Hgzcdfxxgr[address] [place], [place] [address] C Urineon 04-20-2017 C Urine Final Report: Normal skin alonso isolated Normal [facility] Comment on above: Performed By: #### 2 026876 ####KADEN Urinalysis Manual Bojycxjure3091 [place] [address] BMPon 04-18-2017 BUN/Creatinine Ratio 15.0 ratio Normal 5.4-30.0 [facility] Comment on above: Performed By: #### 2 754855 ####KADENMorelia BairdQmlBzhh6681 [place] [address] Creatinine 0.6 mg/dL Normal 0.6-1.3 [facility] Comment on above: Performed By: #### 2 631222 ####KADENMorelia BairdLisQeuf1710 [place] [address] Urea nitrogen 9 mg/dL Normal 7-18 [facility] Comment on above: Performed By: #### 2 135090 ####KADEN BairdSynClsk6341 [place] [address] Calcium 9.6 mg/dL Normal 8.4-10.2 [facility] Comment on above: Performed By: #### 2 579499 ####KADENMorelia BairdNqgGvup6899 [place] [address] Chloride 102 mmol/L Normal 98-107 [facility] Comment on above: Performed By: #### 2 413714 ####KADEN VrcOnzg3788 [place] [address] CO2 23.3 mmol/L Low 24.0-30.0 [facility] Comment on above: Performed By: #### 2 731137 ####KADENMorelia BairdGevPgdu5039 [place] [address] Glucose mass conc 93 mg/dL Normal 70-99 [facility] Comment on above: Performed By: #### 2 326423 ####KADEN ZtfQwue3004 [place] [address] Potassium molar conc 3.5 mmol/L Normal 3.5-5.1 [facility] Comment on above: Performed By: #### 2 113819 ####KADEN XcdSxkf1410 [place] [address] Sodium 136 mmol/L Normal 136-145 [facility] Comment on above: Performed By: #### 2 900026 ####KADEN ByvIesz2727 [place] [address] UA Completeon 04-18-2017 UA Blood Negative Normal Negative [facility] Comment on above: Performed By: #### 2 370446 ####KADEN Urinalysis Manual Etqbnqyzzz[address] [place] [address] UA Amorph Chastity 2+ /HPF Abnormal None [facility] Comment on above: Performed By: #### 2 042616 ####KADEN Urinalysis Manual Zqsqwbzoio206[address] [place] [address] UA Ascorbic Acid 40 mg/dL High <=19 [facility] Comment on above: Performed By: #### 2 055295 ####KADEN Urinalysis Manual Vrgkowlinq[address] [place] [address] UA Clarity Cloudy Abnormal Clear [facility] Comment on above: Performed By: #### 2 960723 ####KADEN Urinalysis Manual Zbnktluzbh[address] [place] [address] UA Leuk Est Negative Normal Negative [facility] Comment on above: Performed By: #### 2 016672 ####KADEN Urinalysis Manual Nhaypbstxp73[address] [place] [address] UA Mucous Trace Abnormal Trace [facility] Comment on above: Performed By: #### 2 718516 ####KADEN Urinalysis Manual Wafjyuvhsz[address] [place] [address] UA Nitrite Negative Normal Negative [facility] Comment on above: Performed By: #### 2 612461 ####KADEN Urinalysis Manual Sknydulnup[address] [place] [address] UA pH 7.0 Normal 4.6-8.0 [facility] Comment on above: Performed By: #### 2 472822 ####KADEN Urinalysis Manual Ivtadgnchk[address] [place] [address] UA Protein Negative Normal Negative [facility] Comment on above: Performed By: #### 2 595534 ####KADEN Urinalysis Manual Lpzpbbakxo[address] [place] [address] UA Spec Grav 1.018 Normal 1.003-1.03 0 [facility] Comment on above: Performed By: #### 2 113541 ####KADEN Urinalysis Manual Rnkbueljls0907 [place] [address] UA Squam Epithelial 0-5 Normal 0-5 [facility] Comment on above: Performed By: #### 2 334345 ####KADEN Urinalysis Manual Htcpptqsxj5051 [place] [address] UA Urobilinogen Negative Normal [facility] Comment on above: Performed By: #### 2 651323 ####KADEN Urinalysis Manual Gphggdbpfd5767 [place] [address] Urine, color Yellow Normal Yellow [facility] Comment on above: Performed By: #### 2 359536 ####KADEN Urinalysis Manual Guidwibbkl8[address] [place] [address] Urine, glucose Negative Normal Negative [facility] Comment on above: Performed By: #### 2 781303 ####KADEN Urinalysis Manual Mtdbiemigu84[address] [place] [address] Urine, ketones presence 2+ Abnormal Negative [facility] Comment on above: Performed By: #### 2 759783 ####KADEN Urinalysis Manual Yhhzvqbxof[address] [place] [address] Urine, urobilinogen Negative Normal Negative [facility] Comment on above: Performed By: #### 2 394647 ####KADEN Urinalysis Manual Nhopplmvta[address] [place] [address] eGFRon 04-18-2017 eGFR (non-black) mL/min/{1.73_m2} Normal [facility] Comment on above: Order Comment: Order added by Discern Expert. Performed By: #### 1 [id number] ####KADEN BahFlii8866 [place] [address] eGFR AA >60 Normal [facility] Comment on above: Order Comment: Order added by Discern Expert. Performed By: #### 1 [id number] ####KADEN InzEzmo1135 [place] [address] Auto Diffon 04-11-2017 Basophils Auto #/vol (Bld) 0.1 E3/mcL Normal 0.0-0.2 [facility] Comment on above: Order Comment: Order Added by Discern Expert. Performed By: #### 2 321637 ####KADEN BairdYltUodp5647 [place] [address] Basophils/100 WBC Auto (Bld) 0.7 % Normal 0.0-2.0 [facility] Comment on above: Order Comment: Order Added by Discern Expert. Performed By: #### 2 581757 ####KADEN BairdWgvNomp0197 [place] [address] Eos Absolute 0.0 E3/mcL Normal 0.0-0.7 [facility] Comment on above: Order Comment: Order Added by Discern Expert. Performed By: #### 2 828918 ####KADEN BairdDefElzf7377 [place] [address] Eosinophils/100 leukocytes 0.1 % Normal 0.0-11.0 [facility] Comment on above: Order Comment: Order Added by Discern Expert. Performed By: #### 2 520344 ####KADEN BairdTmjBgxt1450 [place] [address] Lymphocytes 1.5 E3/mcL Normal 1.2-3.4 [facility] Comment on above: Order Comment: Order Added by Discern Expert. Performed By: #### 2 859288 ####KADEN BairdLzxJbqt1834 [place] [address] Lymphocytes/100 leukocytes 17.2 % Low 20.0-55.0 [facility] Comment on above: Order Comment: Order Added by Discern Expert. Performed By: #### 2 418496 ####KADEN BairdPlfJqpq2984 [place] [address] [place] Absolute 0.6 E3/mcL Normal 0.0-0.7 [facility] Comment on above: Order Comment: Order Added by Discern Expert. Performed By: #### 2 189070 ####KADEN BairdVklLlle7914 [place] [address] Monocytes/100 leukocytes 6.6 % Normal 0.0-10.0 [facility] Comment on above: Order Comment: Order Added by Discern Expert. Performed By: #### 2 394205 ####KADEN VqfCync1969 [place] [address] Neutro Absolute 6.7 E3/mcL High 1.4-6.5 [facility] Comment on above: Order Comment: Order Added by Discern Expert. Performed By: #### 2 829097 ####KADEN Luceroo1025 [place] [address] Neutro Auto 75.4 % High 37.0-75.0 [facility] Comment on above: Order Comment: Order Added by Discern Expert. Performed By: #### 2 274139 ####KADEN Luceroo1025 [place] [address] BMPon 04-11-2017 BUN/Creatinine Ratio 12.9 ratio Normal 5.4-30.0 [facility] Comment on above: Performed By: #### 2 274855 ####KADEN VuhHflp1022 [place] [address] Creatinine 0.7 mg/dL Normal 0.6-1.3 [facility] Comment on above: Performed By: #### 2 389042 ####KADENMorelia BaiWlqGeom8897 [place] [address] Urea nitrogen 9 mg/dL Normal 7-18 [facility] Comment on above: Performed By: #### 2 438276 ####KADENMorelia BaiVwpCyoo1041 [place] [address] Calcium 9.5 mg/dL Normal 8.4-10.2 [facility] Comment on above: Performed By: #### 2 371078 ####KADENMorelia BaiTybXtfv2612 [place] [address] Chloride 105 mmol/L Normal 98-107 [facility] Comment on above: Performed By: #### 2 584776 ####KADENMorelia BaiLwzUljd6351 [place] [address] CO2 22.5 mmol/L Low 24.0-30.0 [facility] Comment on above: Performed By: #### 2 339752 ####KADENMorelia BaiUkkWnpy3068 [place] [address] Glucose mass conc 92 mg/dL Normal 70-99 [facility] Comment on above: Performed By: #### 2 772977 ####KADENMorelia BaiJdkIrkk7077 [place] [address] Potassium molar conc 3.6 mmol/L Normal 3.5-5.1 [facility] Comment on above: Performed By: #### 2 586025 ####KADENMorelia BairdXqjSltv4099 [place] [address] Sodium 137 mmol/L Normal 136-145 [facility] Comment on above: Performed By: #### 2 547640 ####KADENMorelia BairdGieIxkp4231 [place] [address] BhCG Quanton 04-11-2017 Beta hCG Qnt 8564.0 mIU/m Normal [facility] Comment on above: Result Comment: FEMA LE (NON-) & MALE <3 BORDERLINE 3 - 5 SUGGEST REPEAT TESTING FEMALE () 1 D - 1 WK 5 - 50 1 - 2 WK 50 - 500 2 - 3 WK 100 - 5000 3 - 4 WK 500 - 69762 4 - 5 WK 1000 - 32242 5 - 6 WK 12762 - 063785 6 - 8 W[place] 40265 - 551130 2 - 3 [place] [address] - 435897 Performed By: #### 2 967827 ####KADENMorelia BairdFssPuad7666 [place] [address] CBC w/ Auto Diffon 7 Erythrocyte distribution width Auto Ratio (RBC) 13.9 % Normal 11.5-14.5 [facility] Comment on above: Performed By: #### 2 865943 ####KADENMorelia LuceroRjvUuoa9133 [place] [address] Erythrocytes (RBC) 4.63 E6/mcL Normal 3.90-5.40 [facility] Comment on above: Performed By: #### 2 618066 ####KADENMorelia BairdSpeDawu0993 [place] [address] Hematocrit (HCT) 38.2 % Normal 36.0-48.0 [facility] Comment on above: Performed By: #### 2 318740 ####KADEN BairdQkpRzpe7149 [place] [address] Hemoglobin mass conc (Bld) 12.6 g/dL Normal 12.0-16.0 [facility] Comment on above: Performed By: #### 2 903416 ####KADEN Luceroo1025 [place] [address] MCH 27.2 pg Normal 27.0-31.0 [facility] Comment on above: Performed By: #### 2 823548 ####KADEN Luceroo1025 [place] [address] MCHC mass conc (RBC) 33.0 g/dL Normal 33.0-37.0 [facility] Comment on above: Performed By: #### 2 318918 ####KADEN Luceroo1025 [place] [address] MCV 82.6 fL Normal 78.0-100.0 [facility] Comment on above: Performed By: #### 2 620828 ####KADEN Luceroo[address] [place] 2937105 Platelet mean volume (PMV) 8.0 fL Normal 7.4-11.0 [facility] Comment on above: Performed By: #### 2 554875 ####KADEN [address] [place] 2937105 Platelets 233 E3/mcL Normal 130-400 [facility] Comment on above: Performed By: #### 2 054231 ####KADEN Luceroo1025 [place] [address] WBC (Leukocytes) 9.0 E3/mcL Normal 3.6-11.0 [facility] Comment on above: Performed By: #### 2 086797 ####KADEN [address] [place] 2937105 UA Completeon 04-11-2017 UA Blood Negative Normal Negative [facility] Comment on above: Result Comment: High concentration of Ascorbic Acid present in urine. This may cause False Negative Occ Blood. Review microscopic results and patient's clinical symptoms. Performed By: #### 8 [id number] ####KADEN Urinalysis Automated Rejiaohyma6300 [place] 2937105 UA Amorph Chastity 1+ /HPF Abnormal None [facility] Comment on above: Performed By: #### 8 4975129 ####KADEN Urinalysis Automated Xliyrxjccs4587 [place] [address] UA Ascorbic Acid 40 mg/dL High <=19 [facility] Comment on above: Performed By: #### 8 6033224 ####KADEN Urinalysis Automated Ytpzwixrse3271 [place] [address] UA Bacteria Trace Abnormal None [facility] Comment on above: Performed By: #### 8 9219565 ####KADEN Urinalysis Automated Dtwetxjymx8773 [place] [address] UA Clarity Cloudy Abnormal Clear [facility] Comment on above: Performed By: #### 8 3512272 ####KADEN Urinalysis Automated Dzydhmmmct9073 [place] [address] UA Leuk Est Negative Normal Negative [facility] Comment on above: Performed By: #### 8 5011716 ####KADEN Urinalysis Automated Ktlfwnonbq[address] [place] [address] UA Mucous Few Abnormal Trace [facility] Comment on above: Performed By: #### 8 6278339 ####KADEN Urinalysis Automated Wmgruzyoaw[address] [place] [address] UA Nitrite Negative Normal Negative [facility] Comment on above: Performed By: #### 8 0570091 ####KADEN Urinalysis Automated [address] [place] [address] UA pH 7.0 Normal 4.6-8.0 [facility] Comment on above: Performed By: #### 8 2744608 ####KADEN Urinalysis Automated Zpkzmromab[address] [place] [address] UA Protein Negative Normal Negative [facility] Comment on above: Performed By: #### 8 [id number] ####KADEN Urinalysis Automated Ffegnsvusq9844 [place] [address] UA Spec Grav 1.025 Normal 1.003-1.03 0 [facility] Comment on above: Performed By: #### 8 8066075 ####KADEN Urinalysis Automated Zfjylmrodv[address] [place], [place] [address] UA Squam Epithelial 5-10 Abnormal 0-5 [facility] Comment on above: Performed By: #### 8 8247062 ####KADEN Urinalysis Automated Fchyaitovh[address] [place] [address] UA Urobilinogen 2.0 mg/dL Abnormal [facility] Comment on above: Performed By: #### 8 2578454 ####KADEN Urinalysis Automated Sjjigvyiyd3930 [place] [address] Urine, color Yellow Normal Yellow [facility] Comment on above: Performed By: #### 8 [id number] ####KADEN Urinalysis Automated Yoadoybpnl4546 [place] [address] Urine, erythrocytes 0-3 Normal 0-3 [facility] Comment on above: Performed By: #### 8 0702806 ####KADEN Urinalysis Automated Rhufhfapza2183 [place] [address] Urine, glucose Negative Normal Negative [facility] Comment on above: Performed By: #### 8 7720542 ####KADEN Urinalysis Automated [address]hebqdyt[address] [place] [address] Urine, ketones presence 2+ Abnormal Negative [facility] Comment on above: Performed By: #### 8 [id number] ####KADEN Urinalysis Automated Qhbvwyjkid[address] [place] [address] Urine, urobilinogen Negative Normal Negative [facility] Comment on above: Performed By: #### 8 9486946 ####KADEN Urinalysis Automated Mechtkefax9949 [place] [address] eGFRon 04-11-2017 eGFR (non-black) mL/min/{1.73_m2} Normal [facility] Comment on above: Order Comment: Order added by Discern Expert. Performed By: #### 1 [id number] ####KADEN XjiCsdb6524 [place] [address] eGFR AA >60 Normal [facility] Comment on above: Order Comment: Order added by Discern Expert. Performed By: #### 1 [id number] ####KADEN UqiGlxp0436 [place] [address] U BhCG Qlton 03-20-2017 HCG.beta subunit Qn Negative Normal Neg [facility] Comment on above: Performed By: #### 2 062541 ####KADEN Urinalysis Manual Lceibzbuhh3053 [place] [address] UA Completeon 03-20-2017 UA Blood Negative Normal Negative [facility] Comment on above: Performed By: #### 8 [id number] ####KADEN Urinalysis Automated Kknknxlhpo4495 [place] [address] UA Amorph Chastity 1+ /HPF Abnormal None [facility] Comment on above: Performed By: #### 8 2546158 ####KADEN Urinalysis Automated Wmpmkpabnq7411 [place] [address] UA Bacteria 2+ /HPF Abnormal None [facility] Comment on above: Performed By: #### 8 [id number] ####KADEN Urinalysis Automated Clwarvefkt[address] [place] [address] UA Clarity Cloudy Abnormal Clear [facility] Comment on above: Performed By: #### 8 7374015 ####KADEN Urinalysis Automated Luijcuwscw[address] [place] [address] UA Leuk Est 1+ Abnormal Negative [facility] Comment on above: Performed By: #### 8 9883438 ####KADEN Urinalysis Automated Eemabcxpdo[address] [place] [address] UA Mucous Occasional Abnormal Trace [facility] Comment on above: Performed By: #### 8 6743685 ####KADEN Urinalysis Automated Hxfrgvwuji[address] [place] [address] UA Nitrite Negative Normal Negative [facility] Comment on above: Performed By: #### 8 8974313 ####KADEN Urinalysis Automated Okkslccufc[address] [place] [address] UA pH 6.0 Normal 4.6-8.0 [facility] Comment on above: Performed By: #### 8 [id number] ####KAEDN Urinalysis Automated Cogpagefxw6005 [place] [address] UA Protein 1+ Abnormal Negative [facility] Comment on above: Performed By: #### 8 [id number] ####KADEN Urinalysis Automated [id number] [place] [address] UA Spec Grav 1.019 Normal 1.003-1.03 0 [facility] Comment on above: Performed By: #### 8 [id number] ####KADEN Urinalysis Automated [address] [place] [address] UA Squam Epithelial 5-10 Abnormal 0-5 [facility] Comment on above: Performed By: #### 8 [id number] ####KADEN Urinalysis Automated Tnilworunr2778 [place] [address] UA Urobilinogen Negative Normal [facility] Comment on above: Performed By: #### 8 [id number] ####KADEN Urinalysis Automated Cwrkgldpbm2227 [place] [address] UA WBC >50 Abnormal 0-5 [facility] Comment on above: Performed By: #### 8 [id number] ####KADEN Urinalysis Automated Fahuernvvr2956 [place] [address] Urine, color Yellow Normal Yellow [facility] Comment on above: Performed By: #### 8 [id number] ####KADEN Urinalysis Automated Rgphtpulen9078 [place] [address] Urine, erythrocytes 5-10 Abnormal 0-3 [facility] Comment on above: Performed By: #### 8 [id number] ####KADEN Urinalysis Automated Oekxkfipwt5098 [place] [address] Urine, glucose Negative Normal Negative [facility] Comment on above: Performed By: #### 8 [id number] ####KADEN Urinalysis Automated Lacmjaadqw4300 [place] [address] Urine, ketones presence Negative Normal Negative [facility] Comment on above: Performed By: #### 8 [id number] ####KADEN Urinalysis Automated Iaccygsvdg1084 [place] [address] Urine, urobilinogen Negative Normal Negative [facility] Comment on above: Performed By: #### 8 [id number] ####KADEN Urinalysis Automated Ezsqrfpejs1787 [place] [address] Vital Signs Date Time Vital Sign Value Performing Clinician Facility 07-18-2023 10:30-0500 Body mass index (BMI) [Ratio] 26.7 kg/m2 [employer] Work Phone: [facility] 07-18-2023 10:30-0500 Body weight 75.03 kg [employer] Work Phone: [facility] 07-18-2023 10:30-0500 Diastolic blood pressure 68 mm[Hg] Cuong Diana DO Work Phone: [facility] 07-18-2023 10:30-0500 Systolic blood pressure 106 mm[Hg] Cuong Diana DO Work Phone: [facility] 02-11-2023 14:13-0400 Body height 165.1 cm PA-Ventura Wyatt Work Phone: [facility] 02-11-2023 14:13-0400 Body temperature 97.9 [degF] PA-C Andie Wyatt Work Phone: [facility] 02-11-2023 14:13-0400 Body weight 70.55 kg PA-Ventura Wyatt Work Phone: [facility] 02-11-2023 14:13-0400 Diastolic blood pressure 80 mm[Hg] PA-Ventura Wyatt Work Phone: [facility] 02-11-2023 14:13-0400 Heart rate 60 /min FERMIN-Ventura Wyatt Work Phone: [facility] 02-11-2023 14:13-0400 Respiratory rate 15 /min FERMIN-Ventura Wyatt Work Phone: [facility] 02-11-2023 14:13-0400 SaO2% (BldA) [Mass fraction] 99 % FERMIN-Ventura Wyatt Work Phone: [facility] 02-11-2023 14:13-0400 Systolic blood pressure 134 mm[Hg] PA-Ventura Wyatt Work Phone: [facility] 02-08-2023 12:36-0400 Body height 165.1 cm PA-Ventura Wyatt Work Phone: [facility] 02-08-2023 12:36-0400 Body temperature 98.2 [degF] FERMIN-Ventura Wyatt Work Phone: [facility] 02-08-2023 12:36-0400 Body weight 72.57 kg SADAF Wyatt Work Phone: [facility] 02-08-2023 12:36-0400 Diastolic blood pressure 84 mm[Hg] PA-C Andie Wyatt Work Phone: [facility] 02-08-2023 12:36-0400 Heart rate 74 /min PA-Ventura Wyatt Work Phone: [facility] 02-08-2023 12:36-0400 Respiratory rate 15 /min PA-Ventura Wyatt Work Phone: [facility] 02-08-2023 12:36-0400 SaO2% (BldA) [Mass fraction] 98 % PA-C Andie Wyatt Work Phone: [facility] 02-08-2023 12:36-0400 Systolic blood pressure 150 mm[Hg] PA-Ventura Wyatt Work Phone: [facility] 12-19-2022 14:43-0400 Body temperature 96.9 [degF] FERMIN-Ventura Wyatt Work Phone: [facility] 12-19-2022 14:43-0400 Diastolic blood pressure 74 mm[Hg] PA-Ventura Wyatt Work Phone: [facility] 12-19-2022 14:43-0400 Heart rate 59 /min SADAF Wyatt Work Phone: [facility] 12-19-2022 14:43-0400 Respiratory rate 18 /min SADAF Wyatt Work Phone: [facility] 12-19-2022 14:43-0400 SaO2% (BldA) [Mass fraction] 100 % PA-Ventura Wyatt Work Phone: [facility] 12-19-2022 14:43-0400 Systolic blood pressure 115 mm[Hg] PA-Ventura Wyatt Work Phone: [facility] 12-19-2022 14:00-0400 Diastolic blood pressure 89 mm[Hg] PA-Ventura Wyatt Work Phone: [facility] 12-19-2022 14:00-0400 Heart rate 79 /min PA-Ventura Wyatt Work Phone: [facility] 12-19-2022 14:00-0400 Respiratory rate 16 /min PA-Ventura Wyatt Work Phone: [facility] 12-19-2022 14:00-0400 SaO2% (BldA) [Mass fraction] 99 % PA-Ventura Wyatt Work Phone: [facility] 12-19-2022 14:00-0400 Systolic blood pressure 150 mm[Hg] PA-C Andie Wyatt Work Phone: [facility] 12-19-2022 03:30-0400 Body height 165.1 cm PAZhao Wyatt Work Phone: [facility] 12-19-2022 03:30-0400 Body weight 72.2 kg SADAF Wyatt Work Phone: [facility] 12-18-2022 23:07-0400 Body height 165.1 cm PA-Ventura Wyatt Work Phone: [facility] 12-18-2022 23:07-0400 Body weight 74.2 kg SADAF Wyatt Work Phone: [facility] 12-18-2022 23:05-0400 Body temperature 98.5 [degF] SADAF Wyatt Work Phone: [facility] 08-20-2022 14:31-0500 Body height 165.1 cm PA-Ventura Wyatt Work Phone: [facility] 08-20-2022 14:31-0500 Body temperature 98.9 [degF] SADAF Wyatt Work Phone: [facility] 08-20-2022 14:31-0500 Body weight 71.55 kg SADAF Wyatt Work Phone: [facility] 08-20-2022 14:31-0500 Diastolic blood pressure 87 mm[Hg] PA-C Andie Wyatt Work Phone: [facility] 08-20-2022 14:31-0500 Heart rate 97 /min PA-Ventura Wyatt Work Phone: [facility] 08-20-2022 14:31-0500 Respiratory rate 18 /min PA-Ventura Wyatt Work Phone: [facility] 08-20-2022 14:31-0500 SaO2% (BldA) [Mass fraction] 98 % PA-C Andie Wyatt Work Phone: [facility] 08-20-2022 14:31-0500 Systolic blood pressure 135 mm[Hg] PA-C Andie Wyatt Work Phone: [facility] 02-08-2022 03:06-0400 Body weight 68.[address] CUONG ORTIZ . [facility] Comment on above: Performed By: #### AFPMAT #### [facility] [address] [place] [address] Dr. Juan Antonio Ibarra 02-05-2022 18:24-0400 Body height 165.1 cm PAZhao Wyatt Work Phone: [facility] 02-05-2022 18:24-0400 Body temperature 98.3 [degF] PAZhao Wyatt Work Phone: [facility] 02-05-2022 18:24-0400 Body weight 67.9 kg PAZhao Wyatt Work Phone: [facility] 02-05-2022 18:24-0400 Diastolic blood pressure 68 mm[Hg] PA-Ventura Wyatt Work Phone: [facility] 02-05-2022 18:24-0400 Heart rate 92 /min PAZhao Wyatt Work Phone: [facility] 02-05-2022 18:24-0400 Respiratory rate 18 /min PAZhao Wyatt Work Phone: [facility] 02-05-2022 18:24-0400 SaO2% (BldA) [Mass fraction] 99 % SADAF Wyatt Work Phone: [facility] 02-05-2022 18:24-0400 Systolic blood pressure 125 mm[Hg] SADAF Wyatt Work Phone: [facility] Encounters Encounter Date Encounter Type Care Provider Facility Start: 12-26-2023 End: 12-26-2023 [facility] Start: 11-04-2023 End: 11-04-2023 ambulatory CUONG DIANA Not Available Start: 10-28-2023 End: 10-28-2023 ambulatory CUONG DIANA Not Available Start: 10-14-2023 End: 10-14-2023 ambulatory CUONG DIANA Not Available Start: 09-30-2023 End: 09-30-2023 ambulatory CUONG DIANA Not Available Start: 09-12-2023 End: 09-12-2023 ambulatory CUONG DIANA Not Available Start: 08-15-2023 End: 08-15-2023 ambulatory ANDIE [facility] Start: 08-15-2023 End: 08-15-2023 ambulatory CUONG DIANA Not Available Start: 07-22-2023 Documentation procedure Lucio Renee [facility] Work Phone: [facility] Comment on above: Outgoing Ca [...] pre gnancy Start: 07-18-2023 End: 07-18-2023 ambulatory [facility] Start: 07-03-2023 End: 07-03-2023 Telemedicine consultation with patient Rosaura Rneee [facility] Work Phone: [facility] Comment on above: Family history of ge netic disorder (Primary Dx); Genetic testing; Fetus with trisomy 13, single gestation Start: 07-03-2023 End: 07-03-2023 ambulatory CUONGTom EPPSO [facility] Start: 06-20-2023 End: 06-20-2023 ambulatory BARB KRAMER Not Available Start: 05-23-2023 End: 05-23-2023 ambulatory CUONG [facility] Not Available Start: 04-16-2023 ambulatory Cesar Clayton acility:[facility] Start: 02-11-2023 End: 02-11-2023 Emergency department patient visit Johnson Valencia Facility:[facility] Start: 02-11-2023 End: 02-11-2023 Emergency department patient visit SADAF Wyatt Work Phone: [facility] Work Phone: Start: 02-08-2023 End: 02-08-2023 Emergency department patient visit Elle Rhodes Facility:[facility] Start: 02-08-2023 End: 02-08-2023 Emergency department patient visit SADAF Wyatt Work Phone: [facility] Work Phone: Start: 12-19-2022 End: 12-19-2022 ambulatory Arden Orozco Facility:[facility] Start: 12-19-2022 End: 12-19-2022 Evaluation and management of inpatient SADAF Wyatt Work Phone: [facility] [place] [facility] Work Phone: Start: 12-19-2022 End: 12-19-2022 observation encounter SADAF Wyatt Work Phone: [facility] Work Phone: Start: 10-24-2022 End: 10-24-[address] CUONG ORTIZ . Facility:[facility] Start: 10-23-2022 Registered Recurring SADAF Wyatt Work Phone: [facility] Start: 08-20-2022 End: 08-20-2022 Emergency department patient visit Elle Rhodes Facility:[facility] Start: 08-20-2022 End: 08-20-2022 Emergency department patient visit SADAF Wyatt Work Phone: [facility] Work Phone: Start: 07-23-[address] CUONG ORTIZ . Facili ty:[facility] Start: 07-09-2022 End: 07-09-[address] CUONG ORTIZ . Facility:[facility] Start: 07-05-2022 End: 07-07-2022 Evaluation and management of inpatient DR CUONG ORTIZ . Facility:[facility] Start: 07-02-2022 End: 07-02-2022 [facility] Facility:[facility] Start: 06-28-2022 End: 06-28-[address] CUONG ORTIZ . Facility:[facility] Start: 06-21-2022 End: 06-21-2022 [facility] Facility:[facility] Start: 06-16-2022 End: 06-16-2022 [...] Start: 05-24-2022 End: 05-24-2022 ambulatory [facility] Facility:[facility] Start: 04-04-2022 End: 04-05-[address] CUONG ORTIZ . Facility:[facility] Start: 03-20-2022 End: 03-21-[address] CUONG ORTIZ . Facility:[facility] Start: 02-22-2022 End: 02-23-[address] CUONG ORTIZ . Facility:[facility] Start: 02-06-2022 End: 02-06-[address] CUONG ORTIZ . Facility:[facility] Start: 02-06-2022 End: 02-07-[address] CUONG ORTIZ . Facility:[facility] Start: 02-05-2022 End: 02-05-2022 Emergency department patient visit SADAF Wyatt Work Phone: [facility]Emer[facility] Start: 12-26-2021 End: 12-27-[address] CUONG ORTIZ . Facility:[facility] Start: 12-07-2021 End: 12-08-[address] CUONG ORTIZ . Facility: Start: 12-27-2017 End: 12-27-2017 Patient encounter Christian Ivan Facility:[facility] Start: 12-12-2017 End: 12-12-2017 Emergency department patient visit Luke Barbosa Facility:[facility] Start: 12-12-2017 Patient encounter Facil [id number] [...] and management of inpatient CLARA TERESA JAMA [facility] Start: 11-30-2017 End: 11-30-2017 Patient encounter Salomon Nguyen Facility:[facility] Start: 11-30-2017 Patient encounter Facil [id number] Start: 11-28-2017 End: 11-28-2017 Patient encounter CLARA JAMA [facility] Start: 11-21-2017 End: 11-21-2017 [facility] Start: 11-21-2017 End: 11-21-2017 Patient encounter Juanita Cole Facility:[facility] Start: 11-20-2017 Patient encounter Facil [id number] Start: 11-17-2017 End: 11-17-2017 Patient encounter Christian Ivan Facility:[facility] Start: 11-16-2017 Patient encounter Facil [id number] Start: 11-07-2017 End: 11-07-2017 Patient encounter OKSANA CELINA [facility] Start: 10-31-2017 End: 10-31-2017 Patient encounter CLARA JAMA [facility] Start: 10-24-2017 End: 10-24-2017 Patient encounter MARCO ANTONIO ANTONIO [facility] Start: 10-16-2017 End: 10-16-2017 Patient encounter Christian Ivan Facility:[facility] Start: 10-08-2017 End: 10-08-2017 Patient encounter WARRENJEANMARIE PATEL [facility] Start: 10-08-2017 End: 10-08-2017 Patient encounter OKSANASTAN AMADO [facility] Start: 10-01-2017 End: 10-02-2017 Patient encounter Christian Ivan Facility:[facility] Start: 09-10-2017 End: 09-11-2017 Patient encounter LUIS DANIEL VALERI [facility] Start: 09-10-2017 End: 09-10-2017 Patient encounter KRIS Yola HOYT [facility] Start: 09-10-2017 End: 09-10-2017 Patient encounter CLARA EVITA [facility] Start: 09-03-2017 End: 09-04-2017 Patient encounter Christian Ivan Facility:[facility] Start: 08-28-2017 Ambulatory NAGA ACOSTA [facility] Start: 08-13-2017 End: 08-14-2017 Patient encounter CLARA JAMA [facility] Start: 08-13-2017 End: 08-13-2017 Patient encounter MEREDITH BENITO [facility] Start: 08-13-2017 End: 08-13-2017 Patient encounter ALIREZA PATEL [facility] Start: 08-10-2017 End: 08-10-2017 Emergency department patient visit Luke Barbosa Facility:[facility] Start: 08-06-2017 End: 08-07-2017 Patient encounter Christian A Shekhar Facility:[facility] Start: 07-23-2017 End: 07-24-2017 Patient encounter Christian A [place] Facility:[facility] Start: 07-18-2017 End: 07-18-2017 Patient encounter CLARA JAMA [facility] Start: 07-09-2017 End: 07-10-2017 Patient encounter Christian A [place] Facility:[facility] Start: 06-25-2017 End: 06-26-2017 Patient encounter Christian A [place] Facility:[facility] Start: 06-12-2017 End: 06-12-2017 Patient encounter Christian A Shekhar Facility:[facility] Start: 05-14-2017 End: 05-15-2017 Patient encounter Christian A [place] Facility:[facility] Start: 05-01-2017 End: 05-02-2017 Patient encounter Salomon Nguyen Facility:[facility] Start: 04-23-2017 End: 04-23-2017 Patient encounter Yasmin Evans Facility:[facility] Start: 04-22-2017 End: 04-22-2017 Emergency department patient visit Luke Barbosa Facility:[facility] Start: 04-18-2017 End: 04-18-2017 Emergency department patient visit Luke Barbosa Facility:[facility] Start: 04-16-2017 End: 04-17-2017 Patient encounter Gamaliel Savage Facility:[facility] Start: 04-16-2017 End: 04-17-2017 Patient encounter Christian Morelia [place] Facility:[facility] Start: 04-11-2017 End: 04-11-2017 Emergency department patient visit Nela Cabrera Doctor Assigned Facility:[facility] Start: 03-26-2017 End: 03-27-2017 Patient encounter Luke Barbosa Facility:[facility] Start: 03-20-2017 End: 03-20-2017 Emergency department patient visit Nodr No Doctor Assigned Facility:[facility] Start: 03-01-2017 End: 03-01-2017 Emergency department patient visit Nodr No Doctor Assigned Facility:[facility] Procedures Date Procedure Procedure Detail Performing Clinician Start: 07-18-2023 AFP, SERUM, OPEN SPI NA BIFIDA Cuong Diana DO Work Phone: Start: 07-18-2023 Urnls dip stick/tabl et rgnt non-auto w/o micrscp Cuong Eppso DO Work Phone: Start: 12-19-2022 Urine culture SADAF Wyatt Work Phone: Start: 12-19-2022 CT of head without contrast SADAF Wyatt Work Phone: Start: 12-19-2022 Antibody screen Cary Jean Comment on above: Result Comment: PERF ORMED BY: [facility] [address] [place] [address] PATHOLOGIST CIRCULATING PROCESS INSPECTOR MALVIN MEDLEY M.D. Start: 12-19-2022 X-ray of [...] depression scr eening assessment Rosaura Renee [facility] Work Phone: Start: 11-30-2017 Antibody screen SHAINA JAMA Comment on above: Performed By: #### T &S #### [place] [address] Aerobic microbial culture FERMIN Wyatt Work Phone: Investigation of transfusion reaction SADAF Wyatt Work Phone: Plan of Treatment Date Care Activity Detail Author Start: 12-18-2032 DTaP,Tdap and Td Vaccines (10 - Td or Tdap) DTaP,Tdap and Td Vaccines (10 - Td or Tdap) [facility] Start: 09-11-2023 Adult BMI Screening Adult BMI Screening [facility] Start: 09-11-2023 Tobacco Screening Tobacco Screening [facility] Start: 08-15-2023 End: 08-15-2023 Patient encounter procedure 08/15/2023 2:15 PM EST Appointment [facility] [place] [address] [address] [facility] [place] Start: 08-15-2023 End: 08-15-2023 Patient encounter procedure 08/15/2023 9:10 AM EST Routine [facility] [address] [place] [address] Cuong Ortiz, [address] [place] [address] [facility] Start: 07-18-2023 End: 07-18-2023 Patient encounter procedure 07/18/2023 8:00 AM EST Appointment [facility] [place] [address] [facility] [address] [place] [address] [facility] [place] Start: 05-02-2023 Depression Screening Depression Screening [facility] Start: 02-15-2023 COVID-19 Vaccine ( season) COVID-19 Vaccine () [facility] Start: 02-15-2023 Influenza vaccination [facility] Start: 12-19-2022 Bacteria identified in Urine by Culture Urine Culture [facility] Start: 12-19-2022 [facility] Start: 12-19-2022 CT of head without contrast CT head/brain wo [facility] Start: 12-19-2022 CT Unspecified body region WO [facility] Start: 12-19-2022 Consultation [facility] Start: 12-19-2022 Hospital admission [facility] Start: 12-19-2022 X-ray of left foot XR foot LT 2V [facility] Start: 12-19-2022 XR Foot - left [address] [facility] Start: 12-18-2022 Computed tomography of thoracic spine without contrast CT thoracic spine wo [facility] Start: 12-18-2022 CT cervical spine without contrast CT cervical spine wo [facility] Start: 12-18-2022 CT Cervical spine WO [facility] Start: 12-18-2022 CT Lumbar spine WO [facility] Start: 12-18-2022 CT of head without contrast CT head/brain wo [facility] Start: 12-18-2022 CT of lumbar spine without contrast CT lumbar spine wo [facility] Start: 12-18-2022 CT Thoracic spine WO [facility] Start: 12-18-2022 CT Unspecified body region WO [facility] Start: 12-18-2022 Pelvis X-ray XR pelvis [...] 12-18-2022 XR Pelvis 1 or [address] [facility] Start: 2022 Screening for malignant neoplasm of cervix [facility]ETH [facility] Start: 02-05-2022 [facility] Work Phone: Start: 2013 Screening for malignant neoplasm of cervix Pap Smear [facility] Start: 2010 Adult BMI Follow Up Plan Adult BMI Follow Up Plan [facility] Anaerobic microbial culture Anaerobic Culture [facility] Bacteria identified in Urine by Culture [facility] Patient Education [facility] Work Phone: Patient referral [facility] Work Phone: Immunizations Immunization Date Immunization Notes Care Provider Jarocho young 12-18-2022 tetanus toxoid, redu swati diphtheria toxoid, and acellular pertussis vaccine, adsorbed SADAF Wyatt Work Phone: [facility] 05-19-2013 influenza virus vaccine, unspecified formulation Rosaura Renee [facility] Work Phone: [facility] Payers Date Payer Category Payer Self-pay 2017 Medicaid 2017 Unknown 1992 Unknown [id number] 2.840.1.017887.3.579.2.278 1992 Unknown [id number] 2.840.1.121699.3.579.2.278 1992 Unknown [id number] 2.840.1.315250.3.579.2.278 1992 Unknown [id number] 2.840.1.828765.3.579.2.278 1992 Unknown [id number] 2.840.1.764440.3.579.2.593 1992 Unknown [id number] 2.840.1.469849.3.579.2.593 1992 Unknown [id number] 2.16840.1.760560.3.579.2.593 1992 Unknown [id number] 2.16.840.1.542529.3.579.2.593 1992 Unknown [id number] 2.16.840.1.612597.3.579.2.593 1992 Unknown [id number] 2.16.840.1.426149.3.579.2.593 1992 Unknown [id number] 2.16.840.1.771949.3.579.2.593 1992 Unknown [id number] 2.16.840.1.066682.3.579.2.593 1992 Unknown [id number] 2.16.840.1.720144.3.579.2.593 1992 Unknown [id number] 2.16.840.1.827958.3.579.2.593 1992 Unknown [id number] 2.16.840.1.636446.3.579.2.593 1992 Unknown [id number] 2.16.840.1.046776.3.579.2.593 1992 Unknown [id number] 2.16.840.1.470825.3.579.2.593 1992 Unknown [id number] 2.16.840.1.432188.3.579.2.593 1992 Unknown [id number] 2.16.840.1.456999.3.579.2.593 1992 Unknown [id number] 2.16.840.1.507690.3.579.2.593 1992 Unknown [id number] 2.16.840.1.270813.3.579.2.593 1992 Unknown [id number] 2.16.840.1.004296.3.579.2.593 1992 Unknown [id number] 2.16.840.1.310818.3.579.2.593 1992 Unknown [id number] 2.16.840.1.376266.3.579.2.593 1992 Unknown [id number] 2.16.840.1.109060.3.579.2.593 1992 Unknown [id number] 2.16.840.1.046250.3.579.2.59 1992 Unknown [id number] 2.16.840.1.187455.3.579.2.128 1992 Unknown [id number] 2.16.840.1.314832.3.579.2.1285 1992 Unknown [id number] 2.16.840.1.573431.3.579.2.1258 1992 Unknown [id number] 2.16.840.1.773176.3.579.2.1258 1992 Unknown [id number] 2.16.840.1.257106.3.579.2.1258 1992 Unknown [id number] 2.16.840.1.284177.3.579.2.1258 1992 Unknown [id number] 2.16.840.1.664435.3.579.2.1258 1992 Unknown [id number] 2.16.840.1.668343.3.579.2.1258 1992 Unknown [id number] 2.16.840.1.504015.3.579.2.125 1992 Unknown [id number] 2.16.840.1.661099.3.579.2.1258 1992 Unknown [id number] 2.16.840.1.115631.3.579.2.1258 1992 Unknown [id number] 2.16.840.1.760330.3.579.2.128 1992 Unknown [id number] 2.16.840.1.533411.3.579.2.1286 1957 Medicaid [id number] 1957 Medicaid [id number] Medicaid [id number] Unknown Regular Auto/Liability [id number] Unknown [id number] 2.16.840.1.469240.3.579.2.531 Unknown [id number] 2.16.840.1.634882.3.579.2.531 Unknown [id number] 2.16.840.1.989749.3.579.2.531 Unknown [id number] 2.16.840.1.653663.3.579.2.531 Unknown [id number] 2.16.840.1.168876.3.579.2.531 Social History Date Type Detail Facility Start: 02-05-2022 End: 05-09-2023 Tobacco smoking status [facility] Never smoked tobacco (finding) [facility] Start: 1990 Sex Assigned At Female [facility] Start: 12-19-2022 End: 12-19-2022 Tobacco smoking status [facility] Current some day smoker [facility] Start: 03-28-2022 End: 02-11-2023 Tobacco smoking status [facility] Ex-smoker (finding) [facility] History of tobacco use Current smoker [facility] History of tobacco use Tobacco U se Types Packs/Day Years Used Date Smoking Tobacco: Former Vaping/E-cigarettes Smokeless Tobacco: Never [facility] Start: 03-28-2022 Tobacco use and exposure Smokeless tobacco non-user [facility] Start: 06-26-2023 Alcohol intake Current non-drinker of alcohol (finding) [facility] Start: 03-18-2018 End: 05-09-2023 History of Social function [facility] Start: 03-18-2018 End: 05-09-2023 Alcohol Use Disorder Identification Test - Consumption [AUDIT-C] [facility] Frequency of Alcohol Consumption Never [facility] Start: 03-11-2023 [facility] Start: 1990 Sex Assigned At Not on file [facility] Start: 07-18-2023 Alcohol intake Lifetime non-drinker (finding) [facility] Goals Date Patient Goal Desired Activity /State Functional Status Date Assessment Result Facility 12-19-2022 Functional status Patient at Baseline [facility] Work Phone: Mental Status Date Assessment Result Facility 12-19-2022 Cognitive function Cognitive Sta tus Patient at Baseline [facility] Work Phone: Clinical Notes 11-13-2021 [...] questions or concerns. documented in this encounter [facility] 07-18-2023 History of Present illness Narrative [...] deficit disorder) ADHD (attention deficit hyperactivity disorder) ([facility]) Anxiety Bacterial vaginosis Bipolar disorder ([facility]) Club foot Depression ([facility]) Female infertility Heart problem Hormone [...] nursing note reviewed. Exam conducted with a trust advisor present. Vitals: Estimated body mass index is [...] Cuong Ortiz DO documented in this encounter [facility] 07-03-2023 History of Present illness Narrative Summary: [facility] Genetic Counseling Note Provider at different site/location than patient. I confirmed the patient is located in the [facility]. Zuleika Wyatt is currently at home and provider at remote site. The patient consented to be treated electronically via this form of telemedicine. This visit was not related to an office visit or procedure in the past 7 days, and in-office follow up is not recommended in the next 24 hours. Video Visit via Real-time Synchronous Audiovisual Provider Location: [facility]INE AT [address] [address] Patient Location: Patient's home Patient Location Roof Panel Hanger: None Video Visit Consent Statement: I discussed [...] that there are some limitations compared to tbxx-kp-vhrg evaluations. We elected to proceed. Name: Zuleika Wyatt : 1990 Date of Visit: 07/03/2023 Email: [email or web address] Preferred contact method: any Partner's Name: Jag Age: 45 Requesting Physician: Cuong Ortiz DO [address] [place] [address] , [place] [address] Reason for Referral: Zuleika Wyatt is a [...] Screen: YES - low risk Performing lab: [employer] screen Conditions screened: Trisomy 13, Trisomy 18, [...] testing, and cardiac MRI as recommended by regulatory scientist), pulmonology visits for any lung issues, standard [...] of the medical records and evaluation by biomedical engineering aide of the affected individual, may be helpful in further assessing the risk. The father of the was reported to be 40 years old or greater at the time of conception. Advanced paternal age (greater than or equal to age 40) is associated with a slight increased risk of new gene mutations. ([employer]izen [place] [employer] Statement on Guidance [...] greater than ~5 Mb. Karyotype can also continuous pickling line pickler mosaicism potentially as low as ~10%. Results [...]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
[2024-04-25 14:24] LABS: HCG Qualitative Urine* POSITIVE (NEGATIVE); Internal Control Within Normal Limits
== END 2024-04-25 14:58 | disposition home or self-care (01) ==
PROVIDERS: Emergency Provider Emergency Medicine; PCP Physician Assistant
DX: Z32.01 Encounter for pregnancy test, result positive (principal); Z87.891 Personal history of nicotine dependence
CPT/HCPCS: 84703; 99283

== ENCOUNTER 2024-05-18 17:06 | Outpatient (OUT) | payer MEDICAID, SELFPAY ==
--- NOTE | 2024-05-18 17:09 | US_ITS ---
[address] [address] Patient Name: ZULEIKA WADDELL MRN: [id number] date: 1990 Sex: F Assigned Patient Location: US Current Patient Location: Accession/Order Number: [id number] Exam Date: 05/18/2024 17:15 Report Date: 05/19/2024 07:24 At the request of: DAVE CUELLAR Procedure: US OB transvaginal EXAMINATION: US OB transvaginal HISTORY: MISSED MENSES N92.6 COMPARISON: No relevant comparison available. FINDINGS: Blakely intrauterine gestation Gestational sac: 2.92 cm CRL: 1.57 cm, 8 weeks 0 days Yolk sac: 2.6 mm Heart rate: 162 bpm Cervix: Closed, 4.7 cm The uterus is normal, anteverted The right ovary measures 2.5 x 1.6 x 1.9 cm. 1.1 cm hypoechoic area likely corpus luteal cyst Left ovary measures 3.1 x 1.4 x 1.9 cm. Areas of anechoic echogenicity cervix likely cysts Clinical age: 7 weeks 6 days Clinical HUGO: 12/29/2024 Ultrasound age: 8 weeks 0 days Ultrasound HUGO: 12/28/2024 US/US OB transvaginal IMPRESSION: Viable blakely intrauterine gestation measuring 8 weeks 0 days Electronically authenticated by: GAMALIEL CRUMP Date: 05/19/2024 07:24
== END 2024-05-18 17:07 | disposition home or self-care (01) ==
LOC: US 17:06
PROVIDERS: PCP Physician Assistant; Visit Provider Obstetrics & Gynecology
DX: Z34.91 Encounter for supervision of normal pregnancy, unspecified, first trimester (principal); Z3A.08 8 weeks gestation of pregnancy; N92.6 Irregular menstruation, unspecified
CPT/HCPCS: 76817

== ENCOUNTER 2024-06-22 12:33 | Outpatient (OUT) | payer MEDICAID, SELFPAY ==
[2024-06-22 13:10] LABS: Basophils Percent Auto 0.3 % (0.2-2.0); Eosinophils Absolute Auto 0.1 10^3/uL (0.0-0.7); Eosinophils Percent Auto 0.7 % (0.9-7.0); Hematocrit 42.1 % (36.0-48.0); Hemoglobin 13.6 g/dL (12.0-16.0); Immature Granulocytes Abs Auto 0.02 10^3/uL (0.00-0.03); Immature Granulocytes Pct Auto 0.3 % (0.0-0.5); Lymphocytes Absolute Auto 1.2 10^3/uL (1.2-3.8); Lymphocytes Percent Auto 15.9 % (20.5-60.0); Mean Corpuscular HGB Conc 32.3 g/dL (29.9-35.2); Mean Corpuscular Hemoglobin 27.6 pg (26.7-34.0); Mean Corpuscular Volume 85.4 fL (81.0-99.0); Monocytes Absolute Auto 0.4 10^3/uL (0.3-0.8); Monocytes Percent Auto 5.2 % (1.7-12.0); Neutrophils Absolute Auto 5.7 10^3/uL (1.4-6.5); Neutrophils Percent Auto 77.6 % (43.0-75.0); Platelet Count 194 10^3/uL (150-450); Red Blood Count 4.93 10^6/uL (4.20-5.40); Red Cell Distribution Width 14.4 % (11.0-15.0); White Blood Count 7.4 10^3/uL (4.0-11.0)
[2024-06-22 13:22] LABS: Amphetamine Screen Urine NEGATIVE (NEGATIVE); Barbiturates Screen Urine NEGATIVE (NEGATIVE); Benzodiazepines Screen Urine NEGATIVE (NEGATIVE); Buprenorphine Screen Urine NEGATIVE (NEGATIVE); Cannabinoid Screen Urine NEGATIVE (NEGATIVE); Cocaine Screen Urine NEGATIVE (NEGATIVE); Methadone Screen Urine NEGATIVE (NEGATIVE); Methamphetamines Screen Urine NEGATIVE (NEGATIVE); Opiate Screen Urine NEGATIVE (NEGATIVE); Oxycodone Screen Urine NEGATIVE (NEGATIVE); Phencyclidine Screen Urine NEGATIVE (NEGATIVE); Tricyclic Antidepressant Urine NEGATIVE (NEGATIVE)
[2024-06-22 13:35] LABS: Estimated Average Glucose 111 mg/dL; Glycohemoglobin A1C 5.5 % (4.5-6.2)
[2024-06-22 13:44] LABS: BOX Test Reference Lab UNITY; BOX Test Sent Out UNITY
[2024-06-23 05:06] LABS: HCV Ab Non Reactive (Non Reactive); HIV Ab/p24 Ag Screen Non Reactive (Non Reactive); Rubella Antibodies, IgG 3.99 index (Immune >0.99)
[2024-06-23 06:07] LABS: HBsAg Screen Negative (Negative)
[2024-06-23 13:08] LABS: Rapid Plasma Reagin, Quant Non Reactive titer (NonRea<1:1)
[2024-06-23 17:29] LABS: BOX Test Reference Lab FIRELANDS
== END 2024-06-22 12:34 | disposition home or self-care (01) ==
PROVIDERS: PCP Physician Assistant; Visit Provider Obstetrics & Gynecology
DX: Z34.01 Encounter for supervision of normal first pregnancy, first trimester (principal); Z36.0 Encounter for antenatal screening for chromosomal anomalies; N92.6 Irregular menstruation, unspecified
CPT/HCPCS: 36415; 80307; 83036; 85025; 86592; 86762; 86803; 86850; 86900; 86901; 87086; 87340; 87389

== ENCOUNTER 2024-07-20 13:13 | Outpatient (OUT) | payer MEDICAID, SELFPAY ==
--- OUTSIDE RECORDS SUMMARY | 2024-07-20 13:33 | XMS_ITS | CCD ---
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 above: These are unconfirme d results and should not be used for legal purposes. Drug Cut-Off Concentration: AMPH 1000 ng/mL SEEMA 200 ng/mL LAZ 200 ng/mL COCM 300 ng/mL OP 300 ng/mL PCP 25 ng/mL THC 20 ng/mL Color Auto (U)Ordered By: Heather Poe on 12-19-2022 Color (U) Yellow Yellow [facility] HCG ( test) IA.rapi d Ql (U)Ordered By: Ryan Poe on 12-19-2022 HCG ( test) Ql (U) Negative [facility] Ketones Auto test strip (U) [Mass/Vol]Ordered By: Ryan Poe on 12-19-2022 Ketones (U) [Mass/Vol] 1+ Negative [facility] - UrinalysisOrder ed By: Ryan Poe on 12-19-2022 Hyaline casts LM Ql (Urine sed) 0-8 [LPF] 0-8 [facility] Nitrite Test strip Ql (U)Ord ered By: Ryan Poe on 12-19-2022 Nitrite Ql (U) Negative Negative [facility] Opiates [Presence] in Urine by Screen methodOrdered By: Ryan Poe on 12-19-2022 Opiates Screen Ql (U) Negative Negative [facility] Phencyclidine Screen Ql (U)O rdered By: Ryna Poe on 12-19-2022 Phencyclidine Ql (U) Negative Negative [facility] Protein Auto test strip (U) [Mass/Vol]Ordered By: Ryan Poe on 12-19-2022 Protein (U) [Mass/Vol] Negative Negative [facility] Specific gravity Auto test s trip (U) [Rel density]Ordered By: Ryan Poe on 12-19-2022 Specific gravity (U) [Rel density] 1.025 1.001-1.03 0 [facility] Squamous epithelial cells de tection in urine sediment by light microscopyOrdered By: Ryan Poe on 12-19-2022 Epithelial cells.squamous LM Ql (Urine sed) 3-4 [HPF] 0-2 [facility] Urine bacteria detection by automated methodOrdered By: Ryan Poe on 12-19-2022 Bacteria Auto Ql (U) None seen None Seen [facility] Urine clarity by refractomet ry automatedOrdered By: Ryan Poe on 12-19-2022 Clarity Refractometry automated (U) Clear Clear [facility] Urine culture routineOrdered By: Ryan Poe on 12-19-2022 Bacteria identified Cx Nom (U) 2 Days [facility] Urine glucose measurement by automated test strip (mass/volume)Ordered By: Ryan Poe on 12-19-2022 Glucose Auto test strip (U) [Mass/Vol] Normal mg/dL Normal [facility] Urine hemoglobin detection b y automated test stripOrdered By: Ryan Poe on 12-19-2022 Hemoglobin Auto test strip Ql (U) Negative Negative [facility] Urine leukocyte esterase det ection by automated test stripOrdered By: Ryan Poe on 12-19-2022 Leukocyte esterase Auto test strip Ql (U) 2+ Negative [facility] Urobilinogen Auto test strip (U) [Mass/Vol]Ordered By: Ryan Poe on 12-19-2022 Urobilinogen (U) [Mass/Vol] Normal mg/dL Normal [facility] pH Auto test strip (U)Ordere d By: Ryan Poe on 12-19-2022 pH (U) 5.5 [pH] 5.0-9.0 [facility] Amylase [Enzymatic activity/ volume] in Serum or PlasmaOrdered By: Ryan Poe on 12-18-2022 Amylase [Catalytic activity/Vol] 35 U/L 29-103 [facility] Aspartate aminotransferase [ Enzymatic activity/volume] in Serum or PlasmaOrdered By: Ryan Poe on 12-18-2022 AST [Catalytic activity/Vol] 26 U/L 13-39 [facility] Basophils Auto (Bld) [#/Vol] Ordered By: Ryan Poe on 12-18-2022 Basophils (Bld) [#/Vol] 0.1 10*3/uL 0.0-0.2 [facility] Basophils/100 WBC Auto (Bld) Ordered By: Ryan Poe on 12-18-2022 Basophils/100 WBC (Bld) 0.7 % . [facility] Carbon dioxide, total [Moles /volume] in Serum or PlasmaOrdered By: Ryan Poe on 12-18-2022 CO2 [Moles/Vol] 20.0 mmol/L 21.0-31.0 [facility] Chloride [Moles/volume] in S gwendolyn or PlasmaOrdered By: Ryan Poe on 12-18-2022 Chloride [Moles/Vol] 105 mmol/L 98-107 [facility] Choriogonadotropin.beta subu nit [Units/volume] in Serum or PlasmaOrdered By: Ryan Poe on 12-18-2022 HCG.beta subunit Qn Negative [facility] Creatine kinase [Enzymatic a ctivity/volume] in Serum or PlasmaOrdered By: Ryan Poe on 12-18-2022 CK [Catalytic activity/Vol] 50 U/L 30-223 [facility] Creatinine [Mass/volume] in Serum or PlasmaOrdered By: Ryan Poe on 12-18-2022 Creatinine [Mass/Vol] 0.84 mg/dL 0.60-1.20 [facility] Eosinophils Auto (Bld) [#/Vo l]Ordered By: Ryan Poe on 12-18-2022 Eosinophils (Bld) [#/Vol] 0.0 10*3/uL 0.0-0.45 [facility] Eosinophils/100 WBC Auto (Bl d)Ordered By: Ryan Poe on 12-18-2022 Eosinophils/100 WBC (Bld) 0.2 % . [facility] Erythrocyte distribution wid th Auto (RBC) [Ratio]Ordered By: Ryan Poe on 12-18-2022 Erythrocyte distribution width (RBC) [Ratio] 14.4 % 11.9-15.3 [facility] Ethanol [Mass/volume] in Ser um or PlasmaOrdered By: Ryan Poe on 12-18-2022 Ethanol [Mass/Vol] mg/dL [facility] Ethanol [Mass/Vol] TNP [facility] Comment on above: Test not performed Glucose [Mass/volume] in Ser um or PlasmaOrdered By: Ryan Poe on 12-18-2022 Glucose [Mass/Vol] 93 mg/dL 70-100 [facility] Comment on above: ADA recommended refe rence rangeRandom Glucose Reference Range is dependent on time and content of last meal. Glucose of more than 200 mg/dL in a nonstressed, ambulatory subject supports the diagnosis of Diabetes Mellitus. Hematocrit Auto (Bld) [Volum e fraction]Ordered By: Ryan Poe on 12-18-2022 Hematocrit (Bld) [Volume fraction] 36.2 % 34.0-46.4 [facility] Hemoglobin [Mass/volume] in BloodOrdered By: Ryan Poe on 12-18-2022 Hemoglobin (Bld) [Mass/Vol] 11.9 g/dL 11.8-15.4 [facility] Leukocytes [#/volume] correc osmel for nucleated erythrocytes in Blood by Automated counOrdered By: Ryan Poe on 12-18-2022 WBC corrected for nucl RBC Auto (Bld) [#/Vol] 10.3 10*3/uL 3.8-11.6 [facility] Lipase [Enzymatic activity/v olume] in Serum or PlasmaOrdered By: Ryan Poe on 12-18-2022 Lipase [Catalytic activity/Vol] 29.0 U/L 11.0-82.0 [facility] Lymphocytes Auto (Bld) [#/Vo l]Ordered By: Ryan Poe on 12-18-2022 Lymphocytes (Bld) [#/Vol] 2.2 10*3/uL 1.00-4.8 [facility] Lymphocytes/100 WBC Auto (Bl d)Ordered By: Ryan Poe on 12-18-2022 Lymphocytes/100 WBC (Bld) 21.8 % . [facility] MCH Auto (RBC) [Entitic mass ]Ordered By: Ryan Poe on 12-18-2022 MCH (RBC) [Entitic mass] 26.9 pg 24.7-34.3 [facility] MCHC Auto (RBC) [Mass/Vol]Or dered By: Ryan Poe on 12-18-2022 MCHC (RBC) [Mass/Vol] 32.8 g/dL 32.0-35.0 [facility] MCV Auto (RBC) [Entitic vol] Ordered By: Ryan Poe on 12-18-2022 MCV (RBC) [Entitic vol] 82.1 fL 80-100 [facility] Monocyte distribution width [Entitic volume] in Blood by AutomatedOrdered By: Ryan Poe on 12-18-2022 Monocyte distribution width Auto (Bld) [Entitic vol] 22.19 % 0.00-20.00 [facility] Comment on above: For adults in ED, MD W > 20.0 may be associated with a higher risk of sepsis during the first 12 hrs of hospital admission Monocytes Auto (Bld) [#/Vol] Ordered By: Ryan Poe on 12-18-2022 Monocytes (Bld) [#/Vol] 0.8 10*3/uL 0.0-0.8 [facility] Monocytes/100 WBC Auto (Bld) Ordered By: Ryan Poe on 12-18-2022 Monocytes/100 WBC (Bld) 7.4 % . [facility] Neutrophils Auto (Bld) [#/Vo l]Ordered By: Ryan Poe on 12-18-2022 Neutrophils (Bld) [#/Vol] 7.2 10*3/uL 1.8-7.7 [facility] Neutrophils/100 WBC Auto (Bl d)Ordered By: Ryan Poe on 12-18-2022 Neutrophils/100 WBC (Bld) 69.9 % . [facility] No Panel InformationOrdered By: Ryan Poe on 12-18-2022 Estimated GFR (CKD-EPI) > 60.0 mL/Min [facility] Pharmacy Creatinine Clearance (Chem 98.76 [facility] Nucleated erythrocytes [Pres ence] in Blood by Automated countOrdered By: Ryan Poe on 12-18-2022 Nucleated RBC Auto Ql (Bld) 0.1 /100{WBC} 0-0.5 [facility] Platelet mean volume Auto (B ld) [Entitic vol]Ordered By: Ryan Poe on 12-18-2022 Platelet mean volume (Bld) [Entitic vol] 8.1 fL 6.3-10.7 [facility] Platelets Auto (Bld) [#/Vol] Ordered By: Ryan Poe on 12-18-2022 Platelets (Bld) [#/Vol] 223 10*3/uL 150-450 [facility] Potassium [Moles/volume] in Serum or PlasmaOrdered By: Ryan Poe on 12-18-2022 Potassium [Moles/Vol] 3.5 mmol/L 3.5-5.1 [facility] RBC Auto (Bld) [#/Vol]Ordere d By: Ryan Poe on 12-18-2022 RBC (Bld) [#/Vol] 4.42 10*6/uL 3.60-5.00 [facility] Serum or plasma anion gap de terminationOrdered By: Ryan Poe on 12-18-2022 Anion gap [Moles/Vol] 14.5 mmol/L 6.0-15.0 [facility] Sodium [Moles/volume] in Ser um or PlasmaOrdered By: Ryan Poe on 12-18-2022 Sodium [Moles/Vol] 136 mmol/L 136-145 [facility] Urea nitrogen [Mass/volume] in Serum or PlasmaOrdered By: Ryan Poe on 12-18-2022 Urea nitrogen [Mass/Vol] 21 mg/dL 7-25 [facility] WBC Auto (Bld) [#/Vol]Ordere d By: Ryan Poe on 12-18-2022 WBC (Bld) [#/Vol] 10.3 10*3/uL 3.8-11.6 [facility] PRBC LEUKOREDUCEDon 07-14-19 ABO and Rh group Nom (Bld) Cross Match Result Compatible Unit Blood Type A Pos Unit Number [id number] Status Information Released Specimen Exp Date Product ID Red Blood Cells Product Code [id number] Cross Match Result Compatible Unit Blood Type A Pos Unit Number [id number] Status Information Transfused Product ID Red Blood Cells Product Code [id number] Normal [facility] Comment on above: Performed By: #### R UBIGG #### [facility] [address] [place] [address] Dr. Juan Antonio Ibarra CBC AUTO DIFFon 07-07-2022 BASO # 0.0 103/ul Normal 0.0-0.1 [facility] Comment on above: Performed By: #### A 1C #### [facility] [address] [place] [address] Dr. Juan Antonio Ibarra Basophils/100 WBC (Bld) 0.3 % Normal 0.2-2.0 [facility] Comment on above: Performed By: #### A 1C #### [facility] [address] [place] [address] Dr. Juan Antonio Ibarra EO # 0.1 103/ul Normal 0.0-0.7 [facility] Comment on above: Performed By: #### A 1C #### [facility] [address] [place] [address] Dr. Juan Antonio Ibarra Eosinophils/100 WBC (Bld) 0.9 % Normal 0.9-7.0 [facility] Comment on above: Performed By: #### A 1C #### [facility] [address] [place] [address] Dr. Juan Antonio Ibarra Erythrocyte distribution width (RBC) [Ratio] 14.5 % Normal 11.0-15.0 [facility] Comment on above: Performed By: #### A 1C #### [facility] [address] [place] [address] Dr. Juan Antonio Ibarra Hematocrit (Bld) [Volume fraction] 22.5 % Critically low 36.0-48.0 [facility] Comment on above: Performed By: #### A 1C #### [facility] [address] [place] [address] Dr. Juan Antonio Ibarra Hemoglobin (Bld) [Mass/Vol] 7.9 g/dL Critically low 12.0-16.0 [facility] Comment on above: Performed By: #### A 1C #### [facility] [address] [place] [address] Dr. Juan Antonio Ibarra IG # 0.10 10e3/ul Critically high 0.00-0.03 [facility] Comment on above: Performed By: #### A 1C #### [facility] [address] [place] [address] Dr. Juan Antonio Ibarra IG % 0.9 % Critically high 0.0-0.5 [facility] Comment on above: Performed By: #### A 1C #### [facility] [address] [place] [address] Dr. Juan Antonio Ibarra LYMPH # 1.6 103/ul Normal 1.2-3.8 [facility] Comment on above: Performed By: #### A 1C #### [facility] [address] [place] [address] Dr. Juan Antonio Ibarra Lymphocytes/100 WBC (Bld) 14.0 % Critically low 20.5-60.0 [facility] Comment on above: Performed By: #### A 1C #### [facility] [address] [place] [address] Dr. Jaun Antonio Ibarra MANUAL DIFF REQ NO Normal [facility] Comment on above: Performed By: #### A 1C #### [facility] [address] [place] [address] Dr. Juan Antonio Ibarra MCH (RBC) [Entitic mass] 26.4 pg Critically low 26.7-34.0 [facility] Comment on above: Performed By: #### A 1C #### [facility] [address] [place] [address] Dr. Juan Antonio Ibarra MCHC (RBC) [Mass/Vol] 35.1 g/dL Normal 29.9-35.2 [facility] Comment on above: Performed By: #### A 1C #### [facility] [address] [address] [address] Juan Antonio Ibarra MCV (RBC) [Entitic vol] 75.3 fL Critically low 81.0-99.0 [facility] Comment on above: Performed By: #### A 1C #### [facility] [address] [address] [address] Juan Antonio Ibarra MONO # 0.7 103/ul Normal 0.3-0.8 [facility] Comment on above: Performed By: #### A 1C #### [facility] [address] [address] [address] Juan Antonio Ibarra Monocytes/100 WBC (Bld) 6.2 % Normal 1.7-12.0 [facility] Comment on above: Performed By: #### A 1C #### [facility] [address] [address] [address] Juan Antonio Ibarra NEUT # 9.1 103/ul Critically high 1.4-6.5 [facility] Comment on above: Performed By: #### A 1C #### [facility] [address] [address] [address] Juan Antonio Ibarra Neutrophils/100 WBC (Bld) 77.7 % Critically high 43.0-75.0 [facility] Comment on above: Performed By: #### A 1C #### [facility] [address] [address] [address] Juan Antonio Ibarra Platelet mean volume (Bld) [Entitic vol] 9.2 fL Critically low 9.5-13.5 [facility] Comment on above: Performed By: #### A 1C #### [facility] [address] [place] [address] Dr. Juan Antonio Ibarra PLT 143 103/ul Critically low 150-450 [facility] Comment on above: Performed By: #### A 1C #### [facility] [address] [address] [address] Juan Antonio Ibarra RBC 2.99 106/ul Critically low 4.20-5.40 [facility] Comment on above: Performed By: #### A 1C #### [facility] [address] [place] [address] Dr. Juan Antonio Ibarra WBC 11.7 103/ul Critically high 4.0-11.0 [facility] Comment on above: Performed By: #### A 1C #### [facility] [address] [place] [address] Dr. Juan Antonio Ibarra CBC AUTO DIFFon 07-06-2022 BASO # 0.0 103/ul Normal 0.0-0.1 [facility] Comment on above: Performed By: #### A 1C #### [facility] [address] [place] [address] Dr. Juan Antonio Ibarra Basophils/100 WBC (Bld) 0.3 % Normal 0.2-2.0 [facility] Comment on above: Performed By: #### A 1C #### [facility] [address] [place] [address] Dr. Juan Antonio Ibarra EO # 0.1 103/ul Normal 0.0-0.7 [facility] Comment on above: Performed By: #### A 1C #### [facility] [address] [place] [address] Dr. Juan Antonio Ibarra Eosinophils/100 WBC (Bld) 0.8 % Critically low 0.9-7.0 [facility] Comment on above: Performed By: #### A 1C #### [facility] [address] [place] [address] Dr. Juan Antonio Ibarra Erythrocyte distribution width (RBC) [Ratio] 14.3 % Normal 11.0-15.0 [facility] Comment on above: Performed By: #### A 1C #### [facility] [address] [place] [address] Dr. Juan Antonio Ibarra Hematocrit (Bld) [Volume fraction] 23.0 % Critically low 36.0-48.0 [facility] Comment on above: Performed By: #### A 1C #### [facility] [address] [address] [address] Juan Antonio Ibarra Hemoglobin (Bld) [Mass/Vol] 7.5 g/dL Critically low 12.0-16.0 [facility] Comment on above: Performed By: #### A 1C #### [facility] [address] [place] [address] Dr. Juan Antonio Ibarra IG # 0.07 10e3/ul Critically high 0.00-0.03 [facility] Comment on above: Performed By: #### A 1C #### [facility] [address] [place] [address] Dr. Juan Antonio Ibarra IG % 0.6 % Critically high 0.0-0.5 [facility] Comment on above: Performed By: #### A 1C #### [facility] [address] [place] [address] Dr. Juan Antonio Ibarra LYMPH # 2.1 103/ul Normal 1.2-3.8 [facility] Comment on above: Performed By: #### A 1C #### [facility] [address] [place] [address] Dr. Juan Antonio Ibarra Lymphocytes/100 WBC (Bld) 18.8 % Critically low 20.5-60.0 [facility] Comment on above: Performed By: #### A 1C #### [facility] [address] [place] [address] Dr. Juan Antonio Ibarra MANUAL DIFF REQ NO Normal [facility] Comment on above: Performed By: #### A 1C #### [facility] [address] [place] [address] Dr. Juan Antonio Ibarra MCH (RBC) [Entitic mass] 26.0 pg Critically low 26.7-34.0 [facility] Comment on above: Performed By: #### A 1C #### [facility] [address] [place] [address] Dr. Juan Antonio Ibarra MCHC (RBC) [Mass/Vol] 32.6 g/dL Normal 29.9-35.2 [facility] Comment on above: Performed By: #### A 1C #### [facility] [address] [place] [address] Dr. Juan Antonio Ibarra MCV (RBC) [Entitic vol] 79.9 fL Critically low 81.0-99.0 [facility] Comment on above: Performed By: #### A 1C #### [facility] [address] [place] [address] Dr. Juan Antonio Ibarra MONO # 0.7 103/ul Normal 0.3-0.8 [facility] Comment on above: Performed By: #### A 1C #### [facility] [address] [place] [address] Dr. Juan Antonio Ibarra Monocytes/100 WBC (Bld) 6.6 % Normal 1.7-12.0 [facility] Comment on above: Performed By: #### A 1C #### [facility] [address] [place] [address] Dr. Juan Antonio Ibarra NEUT # 8.2 103/ul Critically high 1.4-6.5 [facility] Comment on above: Performed By: #### A 1C #### [facility] [address] [place] [address] Dr. Juan Antonio Ibarra Neutrophils/100 WBC (Bld) 72.9 % Normal 43.0-75.0 [facility] Comment on above: Performed By: #### A 1C #### [facility] [address] [place] [address] Dr. Juan Antonio Ibarra Platelet mean volume (Bld) [Entitic vol] 9.8 fL Normal 9.5-13.5 [facility] Comment on above: Performed By: #### A 1C #### [facility] [address] [place] [address] Dr. Juan Antonio Ibarra PLT 151 103/ul Normal 150-450 [facility] Comment on above: Performed By: #### A 1C #### [facility] [facility] [address] [place] [address] Dr. Juan Antonio Ibarra RBC 2.88 106/ul Critically low 4.20-5.40 [facility] Comment on above: Performed By: #### A 1C #### [facility] [address] [place] [address] Dr. Juan Antonio Ibarra WBC 11.3 103/ul Critically high 4.0-11.0 [facility] [place] Comment on above: Performed By: #### A 1C #### [facility] [address] [place] [address] Dr. Juan Antonio Ibarra CBC AUTO DIFFon 07-05-2022 BASO # 0.0 103/ul Normal 0.0-0.1 [facility] [place] Comment on above: Performed By: #### R PRQ #### [facility] [address] [place] [address] Dr. Juan Antonio Ibarra Basophils/100 WBC (Bld) 0.2 % Normal 0.2-2.0 [facility] [place] Comment on above: Performed By: #### R PRQ #### [facility] [address] [place] [address] Dr. Juan Antonio Ibarra EO # 0.0 103/ul Normal 0.0-0.7 [facility] [place] Comment on above: Performed By: #### R PRQ #### [facility] [address] [place] [address] Dr. Juan Antonio Ibarra Eosinophils/100 WBC (Bld) 0.4 % Critically low 0.9-7.0 [facility] [place] Comment on above: Performed By: #### R PRQ #### [facility] [address] [place] [address] Dr. Juan Antonio Ibarra Erythrocyte distribution width (RBC) [Ratio] 14.2 % Normal 11.0-15.0 [facility] [place] Comment on above: Performed By: #### R PRQ #### [facility] [address] [place] [address] Dr. Juan Antonio Ibarra Hematocrit (Bld) [Volume fraction] 31.0 % Critically low 36.0-48.0 [facility] [place] Comment on above: Performed By: #### R PRQ #### [facility] [address] [place] [address] Dr. Juan Antonio Ibarra Hemoglobin (Bld) [Mass/Vol] 10.1 g/dL Critically low 12.0-16.0 [facility] [place] Comment on above: Performed By: #### R PRQ #### [facility] [address] [place] [address] Dr. Juan Antonio Ibarra IG # 0.10 10e3/ul Critically high 0.00-0.03 [facility] [place] Comment on above: Performed By: #### R PRQ #### [facility] [address] [place] [address] Dr. Juan Antonio Ibarra IG % 1.1 % Critically high 0.0-0.5 [facility] [place] Comment on above: Performed By: #### R PRQ #### [facility] [address] [address] [address] Juan Antonio Ibarra LYMPH # 1.6 103/ul Normal 1.2-3.8 [facility] [place] Comment on above: Performed By: #### R PRQ #### [facility] [address] [place] [address] Dr. Juan Antonio Ibarra Lymphocytes/100 WBC (Bld) 17.5 % Critically low 20.5-60.0 [facility] [place] Comment on above: Performed By: #### R PRQ #### [facility] [address] [place] [address] Dr. Juan Antonio Ibarra MANUAL DIFF REQ NO Normal [facility] [place] Comment on above: Performed By: #### R PRQ #### [facility] [address] [place] [address] Dr. Juan Antonio Ibarra MCH (RBC) [Entitic mass] 25.8 pg Critically low 26.7-34.0 [facility] [place] Comment on above: Performed By: #### R PRQ #### [facility] [address] [address] [address] Juan Antonio Ibarra MCHC (RBC) [Mass/Vol] 32.6 g/dL Normal 29.9-35.2 [facility] [place] Comment on above: Performed By: #### R PRQ #### [facility] [address] [place] [address] Dr. Juan Antonio Ibarra MCV (RBC) [Entitic vol] 79.3 fL Critically low 81.0-99.0 [facility] [place] Comment on above: Performed By: #### R PRQ #### [facility] [address] [place] [address] Dr. Juan Antonio Ibarra MONO # 0.7 103/ul Normal 0.3-0.8 [facility] [place] Comment on above: Performed By: #### R PRQ #### [facility] [address] [place] [address] Dr. Juan Antonio Ibarra Monocytes/100 WBC (Bld) 8.1 % Normal 1.7-12.0 [facility] [place] Comment on above: Performed By: #### R PRQ #### [facility] [address] [place] [address] Dr. Juan Antonio Iabrra NEUT # 6.7 103/ul Critically high 1.4-6.5 [facility] [place] Comment on above: Performed By: #### R PRQ #### [facility] [address] [place] [address] Dr. Juan Antonio Ibarra Neutrophils/100 WBC (Bld) 72.7 % Normal 43.0-75.0 [facility] [place] Comment on above: Performed By: #### R PRQ #### [facility] [address] [place] [address] Dr. Juan Antonio Ibarra Platelet mean volume (Bld) [Entitic vol] 10.1 fL Normal 9.5-13.5 [facility] Comment on above: Performed By: #### R PRQ #### [facility] [address] [place] [address] Dr. Juan Antonio Ibarra PLT 202 103/ul Normal 150-450 [facility] Comment on above: Performed By: #### R PRQ #### [facility] [address] [place] [address] Dr. Juan Antonio Ibarra RBC 3.91 106/ul Critically low 4.20-5.40 [facility] Comment on above: Performed By: #### R PRQ #### [facility] [address] [place] [address] Dr. Juan Antonio Ibarra WBC 9.2 103/ul Normal 4.0-11.0 [facility] [place] Comment on above: Performed By: #### R PRQ #### [facility] [address] [place] [address] Dr. Juan Antonio Ibarra DRUG SCREEN RAPID (URINE)on 07-05-2022 AMP Negative Normal NEGATIVE [facility] [place] Comment on above: Performed By: #### A 1C #### [facility] [address] [place] [address] Dr. Juan Antonio Ibarra BAR Negative Normal NEGATIVE [facility] [place] Comment on above: Performed By: #### A 1C #### [facility] [address] [place] [address] Dr. Juan Antonio Ibarra BUP Negative Normal NEGATIVE [facility] [place] Comment on above: Performed By: #### A 1C #### [facility] [address] [place] [address] Dr. Juan Antonio Ibarra BZO Negative Normal NEGATIVE [facility] [place] Comment on above: Performed By: #### A 1C #### [facility] [address] [place] [address] Dr. Juan Antonio Ibarra PARAM Negative Normal NEGATIVE [facility] [place] Comment on above: Performed By: #### A 1C #### [facility] [address] [place] [address] Dr. Juan Antonio Ibarra CUT-OFFS SEE BELOW Normal [facility] [place] Comment on above: Result Comment: AMP (Amphetamine): [...] 1C #### [facility] [address] [place] [address] Dr. Juan Antonio Ibarra DRUG CUT HEADER DRUG CLASS TEST SYST EM CUT-OFF CONCENTRATIONS ARE FOLLOWS: Normal [facility] [place] Comment on above: Performed By: #### A 1C #### [facility] [address] [place] [address] Dr. Yilan Ibarra mAMP Negative Normal NEGATIVE [facility] [place] Comment on above: Performed By: #### A 1C #### [facility] [address] [place] [address] Dr. Juan Antonio Ibarra MTD Negative Normal NEGATIVE [facility] [place] Comment on above: Performed By: #### A 1C #### [facility] [address] [place] [address] Dr. Juan Antonio Ibarra OPI Negative Normal NEGATIVE [facility] [place] Comment on above: Performed By: #### A 1C #### [facility] [address] [place] [address] Dr. Juan Antonio Ibarra OXY Negative Normal NEGATIVE [facility] [place] Comment on above: Performed By: #### A 1C #### [facility] [address] [place] [address] Dr. Juan Antonio Ibarra PCP Negative Normal NEGATIVE [facility] [place] Comment on above: Performed By: #### A 1C #### [facility] [address] [place] [address] Dr. Juan Antonio Ibarra PPX Negative Normal NEGATIVE [facility] [place] Comment on above: Performed By: #### A 1C #### [facility] [address] [place] [address] Dr. Juan Antonio Ibarra TCA Negative Normal NEGATIVE [facility] [place] Comment on above: Performed By: #### A 1C #### [facility] [address] [place] [address] Dr. Juan Antonio Ibarra THC Negative Normal NEGATIVE [facility] [place] Comment on above: Performed By: #### A 1C #### [facility] [address] [place] [address] Dr. Juan Antonio Ibarra TYPE AND SCREENon 07-05-2022 TYPE AND SCREEN Negative Normal [facility] [place] Comment on above: Performed By: #### T NS #### [facility] [address] [place] [address] Dr. Juan Antonio Ibarra US PREG BIOPHY [...] by: FELECIA GOLDMAN Date: 2022-06-28 15:29 Normal [facility] [place] US PREG BIOPHY W NON STRESSo n [...] GOLDMAN Date: 2022-06-21 17:20 Normal [facility] [place] US PREG GROWTHon 06-21-2022 US PREG GROWTH [...] RCX #### [facility] [address] [place] [address] Dr. Juan Antonio Ibarra UA (CLEAN/CATCH) [employer] REPRESENTATIVE/MICRO I F IND.on 06-16-2022 Bilirubin Ql (U) Negative Normal NEGATIVE [facility] [place] Comment on above: Performed By: #### U MICRO, UACSIND #### [facility] [address] [place] [address] Dr. Juan Antonio Ibarra Clarity (U) CLEAR Normal CLEAR [facility] [place] Comment on above: Performed By: #### U MICRO, UACSIND #### [facility] [address] [place] [address] Dr. Juan Antonio Ibarra Color (U) LT. YELLOW Normal YELLOW [facility] Comment on above: Performed By: #### U MICRO, UACSIND #### [facility] [address] [place] [address] Dr. Juan Antonio Ibarra Glucose Ql (U) Negative Normal NEGATIVE [facility] [place] Comment on above: Performed By: #### U MICRO, UACSIND #### [facility] [address] [place] [address] Dr. Juan Antonio Ibarra Hemoglobin Ql (U) Negative Normal NEGATIVE [facility] [place] Comment on above: Performed By: #### U MICRO, UACSIND #### [facility] [address] [place] [address] Dr. Juan Antonio Ibarra Ketones Ql (U) Negative Normal NEGATIVE [facility] [place] Comment on above: Performed By: #### U MICRO, UACSIND #### [facility] [address] [place] [address] Dr. Juan Antonio Ibarra LEUKOCYTES MODERATE Abnormal NEGATIVE [facility] Comment on above: Performed By: #### U MICRO, UACSIND #### [facility] [address] [place] [address] Dr. Juan Antonio Ibarra Nitrite Ql (U) Negative Normal NEGATIVE [facility] [place] Comment on above: Performed By: #### U MICRO, UACSIND #### [facility] [address] [place] [address] Dr. Juan Antonio Ibarra pH (U) 6.0 [pH] Normal 5-9 [facility] [place] Comment on above: Performed By: #### U MICRO, UACSIND #### [facility] [address] [place] [address] Dr. Juan Antonio Ibarra SPEC GRAVITY 1.020 Normal 1.005-<=1. 025 [facility] [place] Comment on above: Performed By: #### U MICRO, UACSIND #### [facility] [address] [place] [address] Dr. Juan Antonio Ibarra UA PROTEIN Negative Normal NEGATIVE/ TRACE [facility] Comment on above: Performed By: #### U MICRO, UACSIND #### [facility] [address] [place] [address] Dr. Juan Antonio Ibarra UR MICRO IND INDICATED Normal [facility] Comment on above: Performed By: #### U MICRO, UACSIND #### [facility] [address] [place] [address] Dr. Juan Antonio Ibarra Urobilinogen Qn (U) 1.0 {Pamela'U}/dL Normal 0.2 - 1. 0 [facility] [place] Comment on above: Performed By: #### U MICRO, UACSIND #### [facility] [address] [place] [address] Dr. Juan Antonio Ibarra URINE MICROSCOPIC ONLYon BACTERIA SMALL Abnormal NONE SEEN [facility] Comment on above: Performed By: #### U MICRO, UACSIND #### [facility] [address] [place] [address] Dr. Juan Antonio Ibarra Bacteria identified Cx Nom (U) INDICATED Normal [facility] [place] Comment on above: Performed By: #### U MICRO, UACSIND #### [facility] [address] [place] [address] Dr. Juan Antonio Ibarra CAST NONE SEEN Normal NONE SEEN [facility] Comment on above: Performed By: #### U MICRO, UACSIND #### [facility] [address] [address] [address] Juan Antonio Ibarra Crystals LM Nom (Urine sed) NONE SEEN Normal NONE SEEN [facility] [place] Comment on above: Performed By: #### U MICRO, UACSIND #### [facility] [address] [address] [address] Juan Antonio Ibarra Epithelial cells LM Ql (Urine sed) RARE Normal NONE SEEN /RARE [facility] Comment on above: Performed By: #### U MICRO, UACSIND #### [facility] [address] [address] [address] Juan Antonio Ibarra MUCOUS NONE SEEN Normal NONE SEEN [facility] Comment on above: Performed By: #### U MICRO, UACSIND #### [facility] [address] [place] [address] Dr. Juan Antonio Ibarra RBC NONE SEEN Abnormal 0-2 [facility] Comment on above: Performed By: #### U MICRO, UACSIND #### [facility] [address] [address] [address] Juan Antonio Ibarra WBC 2-5 Abnormal NONE SEEN [facility] Comment on above: Performed By: #### U MICRO, UACSIND #### [facility] [address] [place] [address] Dr. Juan Antonio Ibarra GROUP B STREP CULTUREon 05-18 S. agalactiae Ag Ql (Unsp spec) Culture Observations: NEGATIVE FOR GROUP B STREPTOCOCCUS. Normal [facility] Comment on above: Performed By: #### G BSCX #### [facility] [address] [place] [address] Dr. Juan Antonio Ibarra US PREG BIOPHY [...] CRUMP Date: 2022-06-14 16:10 Normal [facility] [place] US PREG BIOPHY W NON STRESSo n [...] GOLDMAN Date: 2022-06-07 16:42 Normal [facility] [place] US PREG BIOPHY W NON STRESSo n [...] GOLDMAN Date: 2022-06-04 17:11 Normal [facility] [place] US PREG BIOPHY W NON STRESS EXAMINATION: [...] GOLDMAN Date: 2022-06-04 16:23 Normal [facility] [place] US PREG BIOPHY W NON STRESSo n [...] CRUMP Date: 2022-05-31 18:39 Normal [facility] [place] US PREG BIOPHY W NON STRESSo n [...] GOLDMAN Date: 2022-05-24 16:34 Normal [facility] [place] US PREG GROWTHon 05-24-2022 US PREG GROWTH [...] growth detailed above. Electronically authenticated by: FELECIA BIENVENIDOHEATHER Date: 2022-05-24 16:33 Normal [facility] GLUCOSE - 1HRon 04-04-2022 Glucose [Mass/Vol] 101 mg/dL Normal 74-106 [facility] Comment on above: Performed By: #### R PRQ #### [facility] [address] [place] [address] Dr. Juan Antonio Ibarra HEMOGRAM AND PLATELon 2021 Hematocrit (Bld) [Volume fraction] 33.5 % Critically low 36.0-48.0 [facility] [place] Comment on above: Performed By: #### A 1C #### [facility] [address] [place] [address] Dr. Juan Antonio Ibarra Hemoglobin (Bld) [Mass/Vol] 10.7 g/dL Critically low 12.0-16.0 [facility] Comment on above: Performed By: #### A 1C #### [facility] [address] [place] [address] Dr. Juan Antonio Ibarra MCH (RBC) [Entitic mass] 29.3 pg Normal 26.7-34.0 [facility] Comment on above: Performed By: #### A 1C #### [facility] [address] [place] [address] Dr. Juan Antonio bIarra MCHC (RBC) [Mass/Vol] 31.9 g/dL Normal 29.9-35.2 [facility] Comment on above: Performed By: #### A 1C #### [facility] [address] [place] [address] Dr. Juan Antonio Ibarra MCV (RBC) [Entitic vol] 91.8 fL Normal 81.0-99.0 [facility] Comment on above: Performed By: #### A 1C #### [facility] [address] [place] [address] Dr. Juan Antonio Ibarra PLT 179 103/ul Normal 150-450 [facility] Comment on above: Performed By: #### A 1C #### [facility] [address], [place] [address] Dr. Juan Antonio Ibarra RBC 3.65 106/ul Critically low 4.20-5.40 [facility] [place] Comment on above: Performed By: #### A 1C #### [facility] [address], [place] [address] Dr. Juan Antonio Ibarra WBC 9.9 103/ul Normal 4.0-11.0 [facility] [place] Comment on above: Performed By: #### A 1C #### [facility] [address], [place] [address] Dr. Juan Antonio Ibarra US PREG REEVAL [...] FELECIA GOLDMAN Date: 2022-03-20 20:55 Normal [facility] US PREG ANATOMY SINGLEon US [...] by: FELECIA GOLDMAN Date: 2022-02-22 16:46 Normal [facility] Coding Summaryon 02-14-2022 Coding Summary HTMLBase 64 ZbtxblvhWDo2iCh+PGhlYWQ+PE 5NTJBuK97rxUDdjJ0FW2xNOW1I VZXDZPHJCD3PCK7odFB9PWuiS7 VybiAv XenpbLIzQK02TQz0EYS9gHdhGI weiE7ejDIwT6s5JgHfQN48pN46 STdnRCCbIuK4OvYwncmrsBCu I8ahCyIzcRTcMeb+PHRhYmxlIH jrTTXqJAgrHBZqSuDpnQxiIX1h Vu9qYLZqZBKpdQwpqXUmLcSn w5dmMMXqURyzGB6llZiuE9SotG K0ASPbz0b2Ze18jQB+PHRkIHN0 cWvyBXlqp031GiRdn2vuDTW4 gQToDCsnNPE2T84dj7U5FTNlFO OkBQJ9vKK0zG8viHnfmxuzC6Di yFUcByJ7OHC4qJUnjV0exKkg fbztzR5rAxs+V84JFX9VEBBHFX 7EZgb1J9MtSewxqKZ+DZ22RBFz HK92xKIouPQcl3uczQh3WrWe ZRTaTTO1uYrxVDgbc8FpCVYoS7 1noRCjn9T8CRPdbArqdDHpWdFj nBR4zP6iJQjrepjdm5ugtkyw Euprn4hrbv51eT65K87tGWfdMP YuHXB9RYHuHEZoxZxiag7maE4i Ii8+UCemh4cfm0ofjJv4BjTn KGMhlsUgbFctDRI8y2WxOz43H5 CjaIjqz8HkYyb1jp05sJEky0X9 cMP7THgbJBJuiG1tWZoyKsC7 XWReEzJwdR85iPXbLBadVt9cyA wigUbxNV4nHGUetcgyZVYcfE0w HQEunUXerPcbRS4jWKKcnojx e807ThRfSBK7XQNevGVuR6SxtJ 9qVmVvRDUfRRMpX9FurUMcJVgi M450WKuoOnI2OCMupsAvQ2Rj BXHzgBsyCtM5t1E7Ck1Hp2Wpmj caQOU1YInbBLH4OcWeYzBgHpB1 V9ZrVpe2WJRmqDocFD3mU0Lr RVRfiqjjalapxEK8AJRuQTRcpX 31uLNhKOnuYy0mk4I3j151WITo FEByxS82Dk2scBerSQDnfRBD tX7dgbimb7bpgawmOxBoCWDuQE i9FSp1BLOddOutVoMuLQA5QnI0 VXV1bQZkjB2tvHgdjrhkpR1t Oyc+H13yiT3wOQE7MPB7yknfCY TacqVaVD21UA25J0EsNepiyPEr bGU+AYTftcSmyUomPN2aErXi z7qxy0ZkOYfxU3BzLXSnQUpeDu r7FICbLGP1bEF4gI6jDSAyECmz w1E7aVZ4U5TnonFxzp4eo2ri PAAnUQgkI68bhQYls7B7ILYuwF X5FRVdbKgpBlSbyS06Ubv+PGNv iRrkp6DpQswvv5nkp6cjiNq3 CsZeFJSkjrAokPlbRDZ4d2RdDg 03Y67pXHroWDUqENIjASEsPGAn nUlhvs3weY6nVs3+PGNvbCB3 wVF9yG2mGEAsHyZ9WFsuD292Tr VahNZqGejlw6chn1zpaEh2OgOi ZIIqioXlaVqtBED1q2DuQl05 G73hXWpoAWLqNGIuICBjIHGahG wtxf1ceZ4pFd0+LA5zm2mndk13 jB69yFG+JDCaKDR9rYehEKum NSBouP2cGCivImD4GBWxPmPtiB 16oBXxARymDe7vgKzquOnyIN8m VTRyilxwy966TjYct2bwCTAz hENwLRvaHCQ7Z82to1I8QHRtEE XkVVN9eXG5fL7mgLkwecomgHOn sGvspsLlpAgzDFvfGFuwE175 IHRvcDsnPlBhdGllbnQgTmFtZT j5G2XsFuh3HDYvsGinQE6nwIOo ULboOm8vmWtgwDkkLU5bUBIm vhlxy358WqZrf3ocNORqqSBtGU puNDP9O84rl6R3GJZeKQMcGYX8 oPX0nO6xtZtlybqsmAVcsFjk ouIlhPyrHNslSGmaY970LKWzgW bmLtLqeqVuLADtyHY8RV26MS90 wYZne6M8sCD8X7NsLMVjynev dvdilLT9KMCiHECmjJ75Mu3vbU kgFb5kNQWpFZV0ASJtoSKkA2Bg aO4gDjKaTQBbQHFrO3ZfzWCa WVnjE441HVywLqV7GHTsusNnT5 QfZKRdePnnZtN5h3Y1Xw0VR2L1 BD45RC19cSVpa9S4mXR9U9Bv JVXepcghgamlcOL8JWAnBRYhhO 43Sv7giTqiYl2qQYPrKWP8MEHj fCBtB0QxsA9aGgYxPQPpVZCj H5WhsQWlKVviF943DCrqFmU0XV LpjwDyI6ZpMZVhfXmbPxE3v6Y2 Ot8PLFu5FL56MF91eSKwu6U3 cQB9Y1PrKOZyrmadxgzrfEN0EB OiTVCodW71Xk4kwEiiWp1mQFKa JXK9EFRhaKCzN9EelE6hKuFj GMQbJRVaO9DkgWIqFJjpE284SB iqWjO2OJFgxrHxL7EqHKLilZdz KaL6e3Q4Rl7YOFPeCC08POE7 xQE0NN31SQ46M4EfPjjfiHXdnC U+PHRhYmxlIHdpZHRoPScxMDAl BtFiuAnrET7wNb0uUWLtGFDs yXaxmRMiEwYgs2inSZEpOFpjVL 9jdXjsF1SvqKK2UPXxx3v7Ap72 J68wQ4UucOO+WRPlfWR8vBZ0 eC8dJcYgYoB1LUfjZ307CpFyrH BhWxhfh1mhu6ntuOh5BiN2NGRy fwZpvSxoUNB6a2NtPk18A39a IHdpZHRoPSIxNSUiIHZhbGlnbj 6lvS3uLa7+VZEsoAT2fRJ0bO3a MaAkPoK5RBkpG274NaMqkAVi Gzfmy4bbh9twjBf5JyMqTLRhaw YdmAaqFUW9g0BaFz40Z2OneAbs w3QvFmr6ce15yWCvb3Z9lJQ5 A2DtVVEalnkegGUhpSfjQP6pKM PoahspCSRumT4mROFkM5c5PgKq FoP6OXnrA7VdlkN1VBGysVUz RTokZOP1O74de9R0RLTfBJFwGC D1pCT4cT8riDwjahsviMUrmVzg ypJezLqbPDyyVGeeG970NOAh iAfvRFYtvF0vZXKsuHJhkRveIU 4wNTBpbjsnPlNURUlOLCBWSVJH TG8WDSUFTTM0J2SyVen0EFGm nZbfTZ3gnHLwGGruBv4zjKihaE lgKS6lMLMmwcgnBKDfsC9qBZZn gRCjgRldWT9gMHGjkiony776 UrNoEEP0LFYwgBStK5VjhO6eAw WgFQRhFKCyY7GcnOGdJBdzC608 LAdaMbK9OIHewkJfB2FqFBOp eGsgEjK5h0J5Hp9lQV4yKM6gJS glOF48IE44kAYme1F1eOY0C2Yl IWVsyolykdhjxSF6UMSuYAOa uP53tMLuZYndSy3xw4P2i061YZ WhMZKfnL94Ie4kiVwrLQNkfCUJ eW5pqctdo6ssgvnrEsZdVRDj ZYd0JXg4JARkzTotZqCmRNB6Ln G6GIY7uLSgdD3yeUccdbrtlP8m Oyc+VrnsNFJcbmT2D7TyAlr3 NQBwoFabAQ3mgSJkWRklHl0woT trfSilFJ7mNRQcnjjqJWIzdH4e AQHrdKZgaQovZB3xRQBxmodr r070AbPbFUR0WBKgmRIiS6LnrZ 4dNoOiVVWtDFQnP6XvxACzRJnl L892WVsaBcC6BTFdyjKbH8Xs LMJevEdlSiE8d5O4Tw7VPA6VGT A9S2HnDyn9DQWpxPafGU0mvFHc KStvQq1gxBzqiFzwRT5qJUSt xxeeFMQmwF6dVKHcuQBosRqaCX 9eBIFnhraew818FeVqOQS0JHXk hHZsZ4VozC7fQgOmQVHaCQGl L2WgvPQoGOymY452GJgbEtO9EJ ChrbMaB2JwDHDmrGrmNdV1w3Z4 Of6OVCjjxUV+DR77cw98K0Ot JomqYwm3CRWeUCP1qGG9tN7xHC PdTEnfy2J9gXL3V7JrotVpfc2c a3ngHGDxWNbhE64vyWQbw9P5 KPBheSV7OVQnbFsqUgOziN41Iy c+RXRjqLfzc7UkJwosw2tkn3kk mKx2ZgFrXBYouiDbsNtxNMV3 o9ImLd26H37wETplPCNuCJXcOL FpIIFaoNkhdw4kkT3gPv4+PGNv iYH0aDX3jL0mJcYiAeP7DSlo J621RcXumZUyBmbpw6vgm3qiaU h2MuOwQNLphgRjjAofLYS9t7Zo Uu65G9XcxYhsq4GuSzd7uz89 oLRpb2R4mRO9R3MwETRntmxuaK EyqVxfGF0iRMFkdukgWUCzuS2t GGBcZ8f7DxXaInA9SDqvS0Tl ffC1QROauCLwBROobFQRpK7yli yzf1xxnnyuFbLzREXyQJn5QQn3 NNLcjZyrWiDpZWF5XjV3KYM9 qPCluC7xsKuivcnngO0dCnt+UG n2u8zzaEKfEF9wiXB0RJ29YZ59 gBZgk3W8sRH2X6DrPIRnnvhc bwsoqRN2QVIyKDIloX97Pt3xcA bjKg0nKWRaWWL7XJLucABdW8Zf vB6qPxYvAJVhYQRqJ6SbmJSu KPaxN682DMsgIxI0ZXBunuUsY7 DvEQLswBokOxL5e6R8Xd1IYO50 ZB66PZ28rCXup3W4hFY7O4Fd YDNursqnqiloyGJ0ESIsABGkcH 58Xg4qvIxqIu8gGARrLOZ2JHDj uYHhQ2WdiO4aRiOfWWTzHQFi H3ImaFCiGGiqD812FGzkXdE4NN TdyoZjR5FwODXxgHloPlM8v8L7 Bf7ADh78VD64MF51vXCrv1A7 xMX8V8GxXUPrqftwiilfqEN0GJ FqOTEgeT45Fw2unWelMz0yYYSr WCQ0HVUqxVNsM2RmkJ4pXdCu OADoJNGiU1CdcBJxNUowW677AA wiCuR3MCNlbfDnY9BjSSAbiOjd KzF4a4X7Sx9VDPyaozw5D4Tl PjwvdHI+YL80TDFyPJ90iSLmoR Nte0ayfAe2VxZiYZVzTHF2lOfq WDroj0PbHDKiA78naZJjs3C8 IGN (more content not included)... [facility] Coding Summary HTMLBase 64 LvodwzjxVHu5xRs+PGhlYWQ+PE 4YGDWtW06apICvpL6NF5zLMT6S QFLRIEAJFN7ACZ1bnHD3ANpjG7 VybiAv SdkceRZzDF75DVj4ANA5mPhbDC olwM5gmCXdN1u8IvUbII80eL44 BLvtECIxWpN2IaIhrhpaiBZe H0jwWpZseGXqXww+PHRhYmxlIH vmPQUlQKvhKJMbCwYyuRjvVM0v Hp6vKIBxKAIjpRcmeSDfIuVx g6eeQJLkPQzyVA4giYxmT8VeeN W7NNCzh2e0Zr54lEB+PHRkIHN0 bKpuRPvft380UrJes8rcNSD4 yTLdOCmmJSD7P98rk2Q1LXDxVF DfMWZ5lIT3eK7prXmhbczvT5Ti uCOqNhZ4JUU4yVUygI8xlBfl xtnosL6bEzz+K13GIY5PCDSVLB 4QPnv7O5ImGjalhSH+LT69ICHp OS11dKNmcEKed2gmcCk4ZlGb WFVmQQO4qMeyAWmlo0PeIJUfB1 5zcFJda9C7LZWgtVxiuALbTxVu jZP0eL0mDAtnqdqsr2dwkfmo Jnnye3wpwq62uI08G31tQCjjTZ AtLOJ1UACaQXMgjCuedr6qvR5c Ii8+OJrua6njv7ojrFn7PiUo RTJlaiAgoRtuOGQ6l5BqDb13P1 VtxVsig4GbEmw0ol23gRBdg4V4 cAN4KYleYOBfaH9yYQrpQeP7 INEsMaVndL61dQJwPVafWt7fsZ aivFmeRD8hAIPzucabEIWvwU5p ZFBafDAykIqcFY8iUBJewhpc n486TmCbGLH6EWZitIDkC9NwkB 4uQgEbHHDhDMZbU8LvpUFfMBzl G728RRwoPiV0HWMlzvNvS7Jx AVDpsIncClD3j1X4Ru9Mj1Ydav uuVHM1XYrlHCF4LnAyVlHdOxW5 Q6IpIkl4SNDvfConSL3wS3Jc PVNsjzprmsmwlGH6WQBxZNWrxA 84qSQeXBfxQz7qp8S9h191THCb HGRbpG49Xb5taCziGFAdrCUE fT0eqmfyh1xzyapgQdQaYHFbBG q3CVf4PNNnhPumBiHfQQZ0YcB2 BEG4rYHymQ6dtPdnidnwrT4h Oyc+J65rdS2fSTQ6WEF2qamfIM WkswLzWR73QN84F1OkNimxhJJl bGU+IOHlioMekAscLB5cDnOg u2lgw3YpDDylF5OpHRMzUMwlWe v1QBHoNZD5jPV4nF3pSFKbFMvx c5G2zSR1M7PshuQmwp5kq1dh BKYfBSpyL22cqMFnc8U1VSUlsZ Y2KRJriSnrZpSzmZ04Fbz+PGNv jRvgl6AvAafmm1wbe4akwYp1 KtYtEWEnzeBjkVjyKBO1m1GtFj 71A77cQKsqYFJsLLGpAFJwTMBc tRmefj3xlA2fAx6+PGNvbCB3 lSP9qS6lNOCkGeF7HBooA669Gu EaqAHlDwbmo0kai8ljwPl0MhSc UIXuxdKinOksHDN9p3PjZu67 L78eOWhvIOBsLAFsAHQoLSLjyA awyp8zfT2vLy2+XE3ex8zkxk64 xF57vMQ+CNXtQCY1hNppXRxf GPZnxS1qKEesSmG0YHFcUcFgmP 97zSJxELtsJj4ikZbpnGldDV6n IYNtcgjfb212YbLrv8enXSQe fEOjLTmcYHI0K15kh1D9FTLlLU UyDLB4vKZ5hY6rvEkxrsexbRKc sLnfbxOcwNgtKJauCMytC072 IHRvcDsnPlBhdGllbnQgTmFtZT e7O8HoFlm2HTMfdBcxXG7qgKFd STtxSn7sxPcxsEshUL8wVIJb ntgmw981GxFnd3elZWHfyZNcXG joWXW3I39gz0I0TWKhZQAqHXJ0 lXC8kG0njGozsophcRLqtTye ppVejFmzFDstCCxvR632GXGmbZ apMnLfxkJxATLqcND1ID47XQ62 oEWrt9B7mRE8M0NjNANvnagz bcqydBO3FZYjBLRqmM00Lv1owC kyOy4sHPPdOQI5WHQwnIAxL6Rv qV8fMnFtZZRaIZUjC2TprENd WIieR213LWsdCnZ0BUXlajSkD4 YtRQXkiYcjQpJ4n2S0Vv1HA8X6 IE76EQ52mGVco4Z8kYE0L5Oq MSQsfffrvwxcdLP9IRPjLLPxtY 52Ha2niOpxRb2fFRDuIFS5EXGf vGYxG0DfhD5qDxJlXGIiAZEc Y6KigFVkOQxwX808ESuqAmD3YO WtepFnI2KaVBHbwOqsWrD7l1C8 Iq0JWDo6GZ65OI44fQFhn5Y3 oAD6S2DuXFCazrkgvzxcaBP1US OhJDXeyN73Ok7hjVkmIu5mQVZz YWD0QGHhxGEmU9VtsP0wZoZx DUGuFQWwG6MnkGAyNUucF452XP gfCzB5BFAtyxOaC2ZtMGRhvYty RoU3u6Z5Zc8PKABnAU51RGO6 jDF9QX33FC29N1ZwCqrpvYSerC U+PHRhYmxlIHdpZHRoPScxMDAl HqHejIrlPK2hBc3gLAHuRWLo gDflkCRyWcSyf6fvLVDxFRfpKX 8qlYisE8LksYU5WZOyd8b4De90 W89cL0RfjUP+EWSneQQ6fCO8 tT1hWqYsZlZ0IFyjG712QhFwzD NfGxvse0qmx5nemTk5AvR3NAHt dqPdxZgdQPU0p1NmCb46X59j IHdpZHRoPSIxNSUiIHZhbGlnbj 0ztG6lRi9+FUIpzSN0cKJ6oA0i UjBqBxI2FBdoE489PzBljJTv Cvcgm9rle1nyjLz0JvKyAIVkrd WghJpxUNZ5x4NeTm86J1GqzVly f4AtPsp1sb60aJIke1T2eKG5 C6XoBVYicalxaJDyfNaeES0rHN SkzwynRRIngF4fZGKcQ6g3VpXe HfP7ECrgK2PrivC9JWRruTAy HDqhVKW2C26vc5N6UGHjMMIdNQ F5iQK2vJ4tbIbytzdonFWhdAmi xeBvcBepTDomXFujZ872MENn wWykKUGvvL7fGOJvfWHmfTftLA 4wNTBpbjsnPlNURUlOLCBWSVJH YN1JXOYRLLB9L5IwTsu8NOSh gBniFB6gxKDiXDskQr0qgLluaB rxVJ2lKDSlasqzQRAomQ3xPWBe iNMtsBshCB8zVYUqoicgs072 JhReTWA7KCIoxDKbA1EzkZ5gCs TrLRBuANAiK7HecZOnAPxpW127 GVypUyG6OYZrzgGbB2NhUDYs jPdeSxE4r7D4Sd3fAW4lTK5eRD taQV39XT10gNQur6B3cQS0F5Jx HUBrubeloxdawEK0MAEnVNEw oI12pVYfQLqyHx4ch6T7d746IS KnXUScvB47Do7lkRmwTYPnbUMU gO2eyahyw5yxylfvXfMxITYw KQo8VYo4KJKviFmhEhTaFKP3By G5DQM4zDHlwX3glZeokqznwS0d Oyc+WwkrOFKdfkD3O8LlJjn9 OIGziPkcFC0csVOuKKthQw9qoF mjeBiiEH0mLMRpjfnjWBDcsC0p GVRbhKQozJwjQJ8lTJSzqeqz r456PpBzLTY4MVRrjFSaH0VjsU 4qHgQsSIVkDUZjF5GqvPMrUOok B111BMnfWfU2XIFblcMcQ5Dp RUVzkWbqXsP0y5V1Hf0WJR0VEH H9F1PjFqz4ACSrrWriYB8oaHNb VHuhTw2taInnvMufES4vPDQa aeuxQSAagV1xALXifUAnvKgtWI 5lUOBhzyxun168HuVxVDU6XSEx rWSgE4ImsJ9xTvCoXQNdLZQd K4ItwGRfSDajY578EAgePzM7VK QttlJeD3VvNZRzhDliBbM8m2T8 Rl5NgONhC3IlU8x3X3FjNvaj dHI+FT39BSIyKM63dJLrkVMct5 bzuIb7AtJoWFMzMCK8vUpgYLut b0JmUALtO96zcKByk8E0BDFe eZxgaHKkJcXgcII0pF7jBJlrku pqu7vtcdgdQjrkz8biva81nE93 K69eKJcqDOSbUQJsFJNoVIEn yLtmkn7wiR5tIp4+ZFEjsQS1sJ E1vX4aByAeBlU3LAceC864MhFu bXLgRuzca9xyr0zxcDy4NfCz QCXwloOxxAcoXBJ5a4JeUf27P2 9sIHdpZHRoPSIyMCUiIHZhbGln ys4hoD4yTw0+YM4it6wszc79 nM89sBE+XIVxWMQ5aJbeDVstJP ZptX9yZJtgQjJ4NWWiOzSpsH51 tIYoMRbbYe6tcYeeqSdxJF2g LEYqeoltl457XlAwy8ncYRCxxZ TiDDijMKO3E98rt6Q8TPFcWGMg VVU2lCE4hQ3esPhfynobgNLg oXktkhPrqRswEAtfDSxeM047XQ WakNzoZrOmzGFzJ3txlpWXBR8s OjwvdGQ+EFDzQHV5tBbhPSqf NKUmbG9fJDMxO6y0CnOqGnS5QN uwX6HgzjF8PHGpwOQqFAIsnCOX pX2fvdqhw5czaneeJgMbNACn DTl3NOe1DKYmvKyaSrWoDVC0Rh S9RPD1zNVmkS7fwDzxfmxveW4o Oyc+RklOOjwvdGQ+PHRkIHN0 eXupCSfpYZToeI5oNIZrC5k2Ni CpQdG2PWcbX7NphhG9SOGchZYa EDIxwOWFkV7qntnec1ozjsie JiKqKLZuXOs9AGo5IZGkwXusOn FvXUG5SxK1PZO2eORfjV6acLcr mkwclU3nNks+TVJOOjwvdGQ+ ATMySPM5uQwpNQgyJDDqtF4xLU AbJ0v1OyBvMeC5HTiuK7IdkbZ8 TEMdqFQtOHGpwSJEaD5dgman b5skepxjEqZmUKWbCEv6XVu3JR AolGaxGpYwOKT7PtP3ESU3bCQf bW7hwTkxaqhexG3kDdl+UGF5 DSP0TT07DX81L7PtGsyvcZIrtY U+PHRhYmxlIHdpZHRoPScxMDAl DyRoeUodVM7iXh3wXXFaREQa bGx (more content not included)... Normal [facility] CHLAMYDIA/GONOCOCCUS RAINER ( AB/URINE/PAPon 02-09-2022 Chlamydia trachomatis, RAINER Negative Normal Negative [facility] Comment on above: Performed By: #### R PRQ #### [facility] [address] [address] [address] Juan Antonio Ibarra Neisseria gonorrhoeae, RAINER Negative Normal Negative [facility] Comment on above: Performed By: #### R PRQ #### [facility] [id number] Juan Antonio Ibarra AFP MATERNAL FOR SPINA BIFID Aon 02-08-2022 AFP MoM 1.41 Normal [facility] Comment on above: Performed By: #### A FPMAT #### [facility] [address] [address] [address] Juan Antonio Ibarra AFP Value 66.8 ng/mL Normal [facility] Comment on above: Performed By: #### A FPMAT #### [facility] [address] [address] [address] Juan Antonio Ibarra AFP, Serum for Spina Bifida Report Normal [facility] Comment on above: Performed By: #### A FPMAT #### [facility] [address] [address] [address] Juan Antonio Ibarra Comment Comment Normal [facility] Comment on above: Result Comment: Melchor Chaudhary, Ph.D., [facility] Director . References: Available Upon Request. . Multiples Of Median Cutoffs For AFP Elevations Briscoe 2.5 Black 2.8 IDD 2.0 Twins 4.5 Abbreviation Definitions IDD - Insulin Dep Diabetes OSBR - Open Spina Bifida Risk . For further inquiries contact [facility] at [phone]. . This test was developed and its performance characteristics determined by [employer]. It has not been cleared or approved by the Food and Drug Administration. Performed By: #### A FPMAT #### [facility] [address] [place] [address] Dr. Juan Antonio Ren Age Collection Date 18.3 weeks [facility] Comment on above: Performed By: #### A FPMAT #### [facility] [address] [place] [address] Dr. Juan Antonio Ibarra Gestat, Age Based on LMP [facility] Comment on above: Result Comment: Reca lculations are not recommended when gestational dating by LMP and ultrasound are within 10 days. Performed By: #### A FPMAT #### [facility] [address] [place] [address] Dr. Juan Antonio Ibarra Insulin Dep Diabetes No Normal [facility] Comment on above: Performed By: #### A FPMAT #### [facility] [address] [place] [address] Dr. Juan Antonio Ibarra Interpretation Comment Normal [facility] Comment on above: Result Comment: Inte rpretation: [...] Customer Services to discuss available options. The [employer] recommends amniocentesis be offered to women age 35 and older. Performed By: #### A FPMAT #### [facility] [address] [place] [address] Dr. Juan Antonio Ibarra [age] Normal [facility] Comment on above: Performed By: #### A FPMAT #### [facility] [address] [place] [address] Dr. Juan Antonio Ibarra Multiple Gestation No Normal [facility] Comment on above: Performed By: #### A FPMAT #### [facility] [address] [place] [address] Dr. Juan Antonio Ibarra OSBR Risk 1 IN 3501 Normal [facility] Comment on above: Performed By: #### A FPMAT #### [facility] [address] [place] [address] Dr. Juan Antonio Iabrra PDF . Normal [facility] Comment on above: Performed By: #### A FPMAT #### [facility] [address] [place] [address] Dr. Juan Antonio Ibarra Race Normal [facility] Comment on above: Performed By: #### A FPMAT #### [facility] [address] [place] [address] Dr. Juan Antonio Ibarra Test Results: Negative Normal [facility] Comment on above: Performed By: #### A FPMAT #### [facility] [address] [place] [address] Dr. Juan Antonio Ibarra VAGINITIS/VAGINOSIS DNA PROB Abdirashid 02-08-2022 Bettye species Negative Normal Negative [facility] Comment on above: Performed By: #### A 1C #### [facility] [address] [address] [address] Juan Antonio Ibarra Gardnerella vaginalis Negative Normal Negative [facility] Comment on above: Performed By: #### A 1C #### [facility] [address] [address] [address] Juan Antonio Ibarra Trichomonas vaginalis Negative Normal Negative [facility] Comment on above: Performed By: #### A 1C #### [facility] [id number] Juan Antonio Ibarra ABO and Rh group post transf usion reaction Nom (Bld)Ordered By: Eleazar Hess on 02-06-2022 Microscopic observation Gram stain Nom (Unsp spec) [facility] ED Clinical Summaryon 2021 ED Clinical Summary [facility] Emergency Department [address] [place], [place] [id number] ED Clinical Summary PERSON INFORMATION Name: ZULEIKA WYATT Age: 31 Years Sex: FEMALE : 1990 MRN: Acct#: Visit Reason: Rash; Medical problem - minor; POSS BODY INFECTION Arrival: 01/29/2022 20:27:46 Discharge: 01/29/2022 21:17:00 LOS: 000 00:50 Check In: 01/29/2022 20:27:46 Checkout:01/29/2022 21:17:00 Address: [address] [place] [address] [address] [facility] [id number] PCP: Andie Stoddard PROVIDER INFORMATION Provider Role [...] : 1990 Associated Diagnoses: Sebaceous cyst Author: Omley, Johnson H DO Basic Information Time seen: Date & [...] follow-up with their family doctor or their WINDER OPERATOR doctor. To this they agreed.. Health [...] Use: Current Fr (more content not included)... [facility] ED Note - Physicianon 2021 ED [...] follow-up with their family doctor or their WINDER OPERATOR doctor. To this they agreed.. Health [...] Once. Impression and Plan Diagnosis Sebaceous cyst ([id number] L72.3, Discharge, Medical) Plan Condition: Unchanged. Disposition: Discharged: time 01/29/2022 20:59:00. Prescriptions: Launch prescripti (more content not included)... Normal [facility] ED Patient Summaryon 022 ED Patient Summary [facility] - Emergency Department [address] [place], [place] [id number] PATIENT DISCHARGE INSTRUCTIONS Patient Information Name: ZULEIKA WYATT Age: 31 Years Date of : 1990 Reason For Visit: Rash; Medical problem - minor; POSS BODY INFECTION Arrival Time: 01/29/2022 20:27:46 Primary Care Physician: Andie Stoddard Attending Physician: Johnson Wright DO Comment: Visit Diagnosis: Diagnoses This Visit Medical problem - minor ([id number]) Rash ([id number]) Sebaceous cyst (L72.3) The Pharmacy at [facility] is open Saturday through Saturday from [...] and/or drug addiction problems; contact the [facility] 07/01 Crisis Hotline -Text 8POXY n[place] [phone]. If you received any narcotics, sedation, or [...] legal documents With: Address: When: Andie Wyatt [address] [place] [address] Business (1) Within 3 to 5 days Comments: home warm compresses clindamycin for antibioitic see your ob, or Dr Wyatt, for recheck apt ----at some point, this might have to be removed; this is not cancer, but a retention cyst of fat material; Return if very red and tender, or fever, vomiting worse You are welcomed to return anytime. Call Dr Wright, ext [phone], if any question patric WRIGHT< ER PHYSICIAN< H B [facility] Medication Information: The exam and treatment you received today in the [facility] Emergency Department were for an urgent problem and are not intended as complete care. It is important for you to follow up with a doctor, nurse practitioner, or physician?s collections assistant for ongoing care. If your symptoms [...] can reach you if necessary. [facility] Emergency Department has provided you with a complete list of medications post discharge. Please inform your manager sales and marketing/provider of your visit and for further instruction [...] (more content not included)... Normal [facility] TYPE AND SCREENon 12-30-2021 TYPE AND SCREEN Antibody Screen NEGA TIVE Blood Bank Notes performed by CV on 12/26/2021 ABO Rh Typing A Rh Positive Blood Bank Notes performed by CV on 12/26/2021 Normal [facility] Comment on above: Performed By: #### R UBIGG #### [facility] [address] [place] [address] Dr. Juan Antonio Ibarra HEP B SURFACE ANTIGEN SCREEN on 12-28-2021 HBsAg Screen Negative Normal Negative [facility] Comment on above: Performed By: #### H BSANS #### [facility] [address] [place] [address] Dr. Juan Antonio Ibarra HEPATITIS C VIRUS AB W/ REFL EX QUANTon 12-28-2021 HCV AB 0.2 s/co ratio Normal 0.0-0.9 [facility] Comment on above: Performed By: #### A 1C #### [facility] [address] [place] [address] Dr. Juan Antonio Ibarra Interpretation: Comment Normal [facility] Comment on above: Result Comment: Nega tive Not infected with HCV, unless recent infection is suspected or other evidence exists to indicate HCV infection. Performed By: #### A 1C #### [facility] [address] [place] [address] Dr. Juan Antonio Ibarra HIV 1 AND 2 WITH REFLEXon HIV Screen 4th Generation wRfx Non-Reactive Normal Non Reactive [facility] Comment on above: Result Comment: HIV Negative HIV-1/HIV-2 antibodies and HIV-1 p24 antigen were NOT detected. There is no laboratory evidence of HIV infection. Performed By: #### R UBIGG #### [facility] [address] [place] [address] Dr. Juan Antonio Ibarra RPR QUANTon 12-28-2021 [...] utilized, such as Treponema pallidum (Syphilis) Screening [place] (239333) or Rapid Plasma Reagin (RPR) Test With Reflex to Quantitative RPR and Confirmatory Treponema pallidum Antibodies (167550). Performed By: #### R PRQ #### [facility] [address] [place] [address] Dr. Juan Antonio Ibarra RUBELLA AB IGGon 12-28-2021 Rubella Antibodies, IgG 3.48 index Normal Immune >0.99 [facility] Comment on above: Result Comment: Non- immune <0.90 Equivocal 0.90 - 0.99 Immune >0.99 Performed By: #### R UBIGG #### [facility] [address] [place] [address] Dr. Juan Antonio Ibarra CBC AUTO DIFFon 12-26-2021 BASO # 0.0 103/ul Normal 0.0-0.1 [facility] Comment on above: Performed By: #### A 1C #### [facility] [address] [place] [address] Dr. Juan Antonio Ibarra Basophils/100 WBC (Bld) 0.3 % Normal 0.2-2.0 [facility] Comment on above: Performed By: #### A 1C #### [facility] [address] [place] [address] Dr. Juan Antonio Ibarra EO # 0.0 103/ul Normal 0.0-0.7 [facility] Comment on above: Performed By: #### A 1C #### [facility] [address] [place] [address] Dr. Juan Antonio Ibarra Eosinophils/100 WBC (Bld) 0.4 % Critically low 0.9-7.0 [facility] Comment on above: Performed By: #### A 1C #### [facility] [address] [place] [address] Dr. Juan Antonio Ibarra Erythrocyte distribution width (RBC) [Ratio] 13.5 % Normal 11.0-15.0 [facility] Comment on above: Performed By: #### A 1C #### [facility] [address] [place] [address] Dr. Juan Antonio Ibarra Hematocrit (Bld) [Volume fraction] 38.9 % Normal 36.0-48.0 [facility] Comment on above: Performed By: #### A 1C #### [facility] [address] [place] [address] Dr. Juan Antonio Ibarra Hemoglobin (Bld) [Mass/Vol] 12.9 g/dL Normal 12.0-16.0 [facility] Comment on above: Performed By: #### A 1C #### [facility] [address] [place] [address] Dr. Juan Antonio Ibarra IG # 0.03 10e3/ul Normal 0.00-0.03 [facility] Comment on above: Performed By: #### A 1C #### [facility] [address] [place] [address] Dr. Juan Antonio Ibarra IG % 0.3 % Normal 0.0-0.5 [facility] Comment on above: Performed By: #### A 1C #### [facility] [address] [place] [address] Dr. Juan Antonio Ibarra LYMPH # 1.4 103/ul Normal 1.2-3.8 [facility] Comment on above: Performed By: #### A 1C #### [facility] [address] [place] [address] Dr. Juan Antonio Ibarra Lymphocytes/100 WBC (Bld) 14.5 % Critically low 20.5-60.0 [facility] Comment on above: Performed By: #### A 1C #### [facility] [address] [place] [address] Dr. Juan Antonio Ibarra MANUAL DIFF REQ NO Normal [facility] Comment on above: Performed By: #### A 1C #### [facility] [address] [place] [address] Dr. Juan Antonio Ibarra MCH (RBC) [Entitic mass] 29.6 pg Normal 26.7-34.0 [facility] Comment on above: Performed By: #### A 1C #### [facility] [address] [place] [address] Dr. Juan Antonio Ibarra MCHC (RBC) [Mass/Vol] 33.2 g/dL Normal 29.9-35.2 [facility] Comment on above: Performed By: #### A 1C #### [facility] [address] [place] [address] Dr. Juan Antonio Ibarra MCV (RBC) [Entitic vol] 89.2 fL Normal 81.0-99.0 [facility] Comment on above: Performed By: #### A 1C #### [facility] [address] [place] [address] Dr. Juan Antonio Ibarra MONO # 0.5 103/ul Normal 0.3-0.8 [facility] Comment on above: Performed By: #### A 1C #### [facility] [address] [place] [address] Dr. Juan Antonio Ibarra Monocytes/100 WBC (Bld) 4.6 % Normal 1.7-12.0 [facility] Comment on above: Performed By: #### A 1C #### [facility] [address] [place] [address] Dr. Juan Antonio Ibarra NEUT # 7.7 103/ul Critically high 1.4-6.5 [facility] Comment on above: Performed By: #### A 1C #### [facility] [address] [place] [address] Dr. Juan Antonio Ibarra Neutrophils/100 WBC (Bld) 79.9 % Critically high 43.0-75.0 [facility] Comment on above: Performed By: #### A 1C #### [facility] [address] [place] [address] Dr. Juan Antonio Ibarra Platelet mean volume (Bld) [Entitic vol] 10.0 fL Normal 9.5-13.5 [facility] Comment on above: Performed By: #### A 1C #### [facility] [address] [address] [address] Juan Antonio Ibarra PLT 194 103/ul Normal 150-450 [facility] Comment on above: Performed By: #### A 1C #### [facility] [address] [place] [address] Dr. Juan Antonio Ibarra RBC 4.36 106/ul Normal 4.20-5.40 [facility] [place] Comment on above: Performed By: #### A 1C #### [facility] [address] [place] [address] Dr. Juan Antonio Ibarra WBC 9.7 103/ul Normal 4.0-11.0 [facility] [place] Comment on above: Performed By: #### A 1C #### [facility] [address] [place] [address] Dr. Juan Antonio Ibarra CULTURE URINEon 12-26-2021 CULTURE URINE Culture Observations : LIGHT GROWTH OF MIXED GENITAL ALONSO. NO POTENTIAL PATHOGENS SEEN. Normal [facility] [place] Comment on above: Performed By: #### R UBIGG #### [facility] [address] [place] [address] Dr. Juan Antonio Ibarra GLYCOHEMOGLOBIN A1Con 2021 ADA RECOMMENDATION SEE BELOW Normal Select [facility] [place] Comment on above: Result Comment: ADA RECOMMENDED LIMIT 4.0 - 6.0 ADA THERAPEUTIC TARGET < 7.0 ACTION SUGGESTED > 7.0 Performed By: #### A 1C #### [facility] [address] [place] [address] Dr. Juan Antonio Ibarra Glucose [Mass/Vol] 114 mg/dL Normal [facility] Comment on above: Performed By: #### A 1C #### [facility] [address] [place] [address] Dr. Juan Antonio Ibarra HbA1c (Bld) [Mass fraction] 5.6 % Normal 4.5-6.2 [facility] Comment on above: Performed By: #### A 1C #### [facility] [address] [place] [address] Dr. Juan Antonio Ibarra US PREG TVon [...] GOLDMAN Date: 2021-12-07 16:59 Normal [facility] [place] Coding Summaryon 11-21-2021 Coding Summary HTMLBase 64 HecwqwtuYPr9iHl+PGhlYWQ+PE 3NEUJbJ72jbGWjkN8NE9bLLN5Z CBRHESOZJV2GLV4myFR4REfrN0 VybiAv DhixkGRaIT71AZa7HKU7yHhlEV zmvL6czADxS8f8YgIsUN98iG76 UVmdQTXdGvW4VsMwzmxkeOYa R8obZbIdsSUaZlq+PHRhYmxlIH upHTLfJWjrYAHlDkQpnXvbZX7y Jn0iIRZrRTUwaSyifUQxVdZu j9rwSCRqCOeiJR4iyNoqF5UwnJ Y3PBMta6v6Rd26wIQ+PHRkIHN0 iXklFMenk027XzCko1xhCLG0 nTBmAQdgVOT9W58ml2M3HPDbSH IrVHA6iDC6bU8plOdyvqtwB3Wv vNOoRkO1KXD6dEMrjA1ewRmo owisvD3kIpo+A14BXA5JOUCJPN 3AAqk7L5MnOoctkQP+LC80TNRx WB29xTJuuUGfr8bdzOg1MpFh GOAbMIM4sIcdREand0GxFKFaA0 9lzHHoa7M0UMRbhOsihOZuCdUh lAR5dH0jATjaawzif3xjfvic Ffsti9olnk25tQ52B16vLWboSL QdGCQ4QREtXNDvyTmsic2shA4o Ii8+CRpbj6xfn5yxvLg0XeHg JZOvkeApnUzvNAZ7m8AaWt74V3 OyyKirq1OzKbo4mr21vTWcf0W6 wGH4DIrhPBGbjV7cSXuxFfF3 UHHpZpHxpM81sIFpTOkxFg5reI ugoKckOR9gMNTxwxmaJWIqbW4o QGMqrXCgcOxgUI7mCEJjylrw l987YrXlWVK7TWZqsHRnC5YnoK 1yJyStVOCqTRLfX6AusYAeZLqt P376IRohVpM1GLEjatVgM2Av WJApmHzaMhD2d2X9Oj6Ey1Phym pcUFN9ITigQWY2YpA0BvEqXaT0 D3GaNtp3RPMpdWbwPP1mT0Xb LXVdqcpfwmqkwZS1TPZfBGRmeE 83jULrDFzqCl8wb5U5j190YTIv LZJvyQ41Rg9fvYpvUFSjpUCT iI0kqcbfl9scxqmlPnRoDKDoUO o8LWk3FMEecVifIaAuFAI4PgS7 KTY9nRJieJ7gdYcbfffnbN6w Oyc+L62qlY5pQVJ4HLW3lyhkXR XiizTuBS55YD46Q2GpFvqzaFPm bGU+NHXqcvFlpWthZO8mRuOx s5avy4PcJIrmA3XeMRMgUKnkGi h7JOXwYGZ3mQK9yQ0dROCvEGwa y3C4hIH9J8SoseXuig7zj9jb HJAwDVuaR32dlXDgq2V8BNOzxJ Z2XBSrgHlwIwEuhH58Ddk+PGNv dNgji2EsUvqpr3ktt5egyKq8 WwChGVKnorWceOzyIFM0e5PbUe 66G34rARamXHJlPOXhNODmCTAw dGgvaj1naK5yKk7+PGNvbCB3 qPC5gZ3lTTIgJtP8PLvpE857Rb EasLStYwasn5nwp8cyzOd1VtVo RXSzcfXqvSdfKUL9x9YfWn40 I81aJDrzGIKoFZExFOCzKTIohJ zpom3xdT7hRz5+OU2ah3zgwj19 xZ49nUJ+DKSqBVF7cHnyLGsr KSNjbT0bEUnuAmA0HVDxMtFitO 04rDPhWUigYm9ssVeznVnsDJ1j RDLnaqqjp469ZyZkq4ifWACy pDKjYBwdFCV7T90tj3Z5OKWwTV XhNWZ6jPV1dX7jkPjrtixcfQRb dGdukbIpnQmrCDvuWMrvH566 IHRvcDsnPlBhdGllbnQgTmFtZT i3K4RfIik6OZFbvNkxTT4ftTNl DYdrHm4ouPghpIvnLT1eTDYf zaddi578IhStx4jkLLXlbMZmWF qbTLL6I03bp9S2PZJuRWBgAVU5 yCV0mR4xnTegnxfahBEynQbh rjGmwNbiXGieHZgmR678FXFsiU gkUePpbkJqTWApaBA2XK28GV69 bEFzo5G9cFG6F6JwUQUijlcu zduqwGM4RYEwBJQvwX05Db9yjJ zwDz3pVYEpGFN6JEKtwQQoZ7Bl lT8tPhRwHTWzAJSyN2FxjBPo WUiqC474NTmqVsY5YGNlzhItT2 YdJQFcvRkmRsF5q2O9Bz6HL5D8 OD40LP56sKVru9P7zJC8W7Cn RULxeqbrgmkxeJB5DHJdWEYcaY 41Py2bwVxrFm8nKALcYUN8YUNf wHNnT9UhlG3hPyWzTSSoICWe Y6LgaGMuRSykP127QIwzQjK9JB IfobBnK4PnWMHouWkxNzC2t6T0 Fj3IQAa3KL97EC75rEEtx3D1 oFU7R0HtJFNtnwzrbvgooKM0OX WzWWKwmH62Pp6wqRhzTj2cJIJs MFD6ZCZpxVUwI7TxmW1kMrWz LUVqIJWaB5NzvISxMGgnU144VP uuCdD7EGWpfsRvK9RlDEJdbDls PzZ7s3W2No8SXSNaIR96OGN7 hUW7WZ17VW12C0MnRrqhrFYppM U+PHRhYmxlIHdpZHRoPScxMDAl RvJpsXslIB8uSt3lBXLdQLPc bHzhvORxQyPfu9muHJRlJJyiJN 3eoIaqS8SomTD0NXOlo2t2Sr83 W92oS4LhuCP+ODDeuDY5aIV9 oD6iNnEtMwM4GOrfR079ZcKxgG FcWywho6pil2cnsTu2SrX3PZYr egDsoGkqOAV7d3HvLi10G46b IHdpZHRoPSIxNSUiIHZhbGlnbj 9qiU7mSn1+IDOlrZO7uJC7zV8m EhTbSvZ8AYoiP491LnVuhYUx Qioyo5sct5jqbUj7JhWfGJVjjw UoiMgvGGH5k9PvJk10W0GmwOfw h8YrTmh6gf32mOXqy5T4fCU0 F3EtLTAwbvcjwHJuuChlTF8qYS QtzwinGIBwkO9aUSGuO6g6TtTj PiB3BVltH0WbtdW5UZDsgFQn IDyjIDL1O97vg0V2PTSyBDPiYO X6yQD5bQ6euGrtxdtxyJTrgFic laQtyOhmZZucGQciR531MTOq tMwuPITitP2jDBCuaPZqlIyeXQ 4wNTBpbjsnPlNURUlOLCBWSVJH JA1GFKJKZFX8O4TbCun1BNBf zFvcNF3nqOVcXBsuDo0bfHjmoI viRJ1bOIYjfamfKHEnbD6aKYXf nLPzwEldPV9nZDAiyxjed594 KuSgIPX2RTNukHWyY3KvxB1xQl WfZTCgLXJdN1VxjYTzLQjlO161 PGhjDfB7DAUlafXaP5LhEQQw gSjxUmZ4n6Z9Wy0wRH1pHD3yOS meIW09KY81wCSwn1E9qWP3N7Le YORpmnigoyshpMO1AJCrDDFp mZ34qVRwBIoyJh8ef5V8r763CM DtMXYxlE86Zd7dyEgaHRHzzHCZ cI4bwivtt0ktalnsNoUxSCYv SYl2WPh2VKJjpNcfGlTcQDW3Oi M9LZL8eDCneZ6fxKsqqanqvT6l Oyc+XqmyWSFxhvN6R3YmTbx2 HNXzpUpkCV0pjAAkRNrrZb6vdN esxYooRX0qKAGlukhvBBTysQ0g UNTkxFCfcYrsBP6nORDzfrdb k639XyAtVYM6HSLxcQAjZ0OtnI 2hXxOvJINsPDYzI6HwjIRhDUgn F049DGstSzP5XIQuhdJkN0Zj AMTdcWjcQdF9d2P4Xg4LJV4WKN L8E7PbCbp8UXTlyVaxFS7foVDa JBuqDx2zyKljdHwaDR8vKJPl inwzVLKgoY9hAXCqsGTcxUqbFU 0nHBYoqxshm179HhBqNIS8EBTn xRMxE0TqzP4mCsVnJMFlOCFw S6DitRGdKSrnT112BVzfBzJ4LD NtekKxE3ZoZAOxtBvrThW1b7W4 Pm4OSYsujIU+KL62qp94K9Fs FbvwPhr6UURqIJY1mEC2wT4nEI XjJEthd9V8iKW7S8VmroZdhl3u j2pjAZJxEWxpS43gqTLnj1O9 EXLrxVZ8BHJfmYalNrWbtI35Yg c+MKDqaKarf7CwIwlyn9pqm6bq vIj3LiMfHTBoyfExwVjlIUS7 o3IvJj90Z45sGElbEYRuRHThOV TqOTWiuDlcnh7leX2aLt9+PGNv nVV3tZE4zB2gDjMpOeA0MMxo W114DiBbeAFbSsirw0xjo0wnyN j6LrLiUZFtusCrpIgwIXW5p4Rx Zv66F3EhuBewf2GzJsa2sc50 wRAtd3Z7hQD6H6QmDESbihcdzG QanEzmIS5tXKTfhrejTFVgdB3m VCPuS7h0CdShTbN2RCknX3Jc loV2JSEvzRUmHHKnjZONiW1sam ooc7dcasdrCzRwGYPrMMy0FUv0 JBCcsNghUnQeQSR7CzF3LJK1 eDHuhR6ipCaiddjduA3ySih+UG u1q5lyjFHyOV7ikQC9SS24ML95 uFXxf4T1wGQ7P1BiHLFatcty iliitXL5IIQcCASnmU06Sb4dlS twLc8kVJXlYDV0LVDixTPlZ4Fs aU5hHjVrBVCuVCJtC8ThlAWy XMwzB508OVsjVbZ6VKHoffRfK8 InLXRceOepWiM0i3K8Uz9KHD71 WS41CS36vNSte1X4yTI1D7Rm DQNungcyovxjwBO6IPKeFBDepD 05Dw5roJcqMy6vMMKvAOA9IYPz mURyX9SkzQ7nIeKfVTXeHCPm C4TsbLLcZRpoL557LThjZaS8MC JpmuIuU5JhBBRgcFdlFzA2b5H0 Yw1AFt71ET52HU29wMFop0I3 oJD3N9QdLYTdwkvrvylvtCZ3ZE MhOQLujN03Lo8qnDvsMu1iXFLd QKQ1DWXctSIvL7LikF7tZbIn OHZyITKcI5XxqDOqWUfqC471MV kvIvZ2OGEhheRjP0BqYFHraMot WjE7b4C8Hb9XAPfwrsr1V4Gg PjwvdHI+WO62SYQuMA44qTBdsF Ldh1isiKb5PcUpZNEsCPD0bCju QOoik5IgJDWdY39oaPRoz5F3 IGN (more content not included)... [facility] Coding Summary HTMLBase 64 OqpqbiqvKQu2xLe+PGhlYWQ+PE 2QIGBoH65buQAvpK6WI8cFCI1Q ZAKULOZBCW9DJG2pgII1QImuB1 VybiAv UxqxqTKwYP71HLy2VZA2iKdxNO swyM7lcJKdW4h0KcLfND45nW86 UVasKYXkRrV8BpNakbdkcWQz X7ugVcTcmFNyYpp+PHRhYmxlIH wyZCKqERylEBIyZeIykBjnZR4k Af4uOEUxIVYkeCqxcNVmUhMv e3mhEBMeUOreMG8lbGfxJ3RadM E3YFVkv8a6Fa39oCT+PHRkIHN0 tAylNWmuy394IqGcu2fmWIG6 sZAiIFlmUGU5J29az3N2SIRwQR OfHNQ6yZW0fF2lwZluedkrC0Jg zYCtUtK9OHL9eLGozM3taZiu twiwzA0fXfp+X07LKH6DQZUMVF 3VTem7J0EtRigqeZT+SK95KNCf YF50hHAnrDQoy4gxhPt4HkKv LAMyFUL0iSazNGkzw0ApCQAaB3 4leHOnu9W6DVNbaHohoWRqZoUb eJH4nA8wBEnzcumfu0lqlgfh Tyche2rjag14dR76P35zXXumGW EeDHV5YLOpHVFutVlgbf5ccP0j Ii8+OAgdy0ptv6appVb1GeWj UVMehhSieDunVKA0h9NoQo62Y9 CfnLlek4HgHmf3px17sYPib3N2 yRZ4ILnbVJNjhN6aKBiwVfD5 LDBrJwRgcV13tOTiEPhsXb5fqA rsdKcuEB2vYUBceiraLSGvqB5k RBNcoWPhmSstHR6fXDUcxwei a971WqXgDAD7NFSxwGYsF7OonR 3zVjVcPEXqVFWmP5QbsXJfUFvf Y026BFvzWoR2KNPqivRhI5Gy DZQpkRaqCnD6g9I3Os9Yv9Tvaq gcOWH0JQzsJBE1ZnL3LhBeRtH9 X4FoUgk1DJUzgNzyEC3rY0If KVPgoxpcimenrOQ2ZQEcZVPboC 20kLXkLKhwDw2kw8E1k077TEQq KSMwxF42Sj1aiWjpGDItcIIN oA1mmffsk5rujbreZcYeEGQyWP s8EIk4KPPzcRwtIfDxFST8WkJ0 KSE7iXXkpH5xgFbkqcyxcG4a Oyc+V72phF3lRWH3JVH2qrklOJ JpyqFvTI04BR35X3SfJkaifCPy bGU+QRRbxwPfzVapOS3zEqPt c1cun4YnONbeZ5RqFHWeZClbYl y6NUExVCO0zOD6pJ8dWDXsSFpn n3B2sAJ7T1PntzRixf8jc1vt OJYoNLwhT10bsMFlu2O6WQGarN J7ISAglAghMmTrlY82Boj+PGNv wDmqo9UgGegpw2cjx0rovDm3 XjOnAKSuodWrePpqSHV4f7RdYs 69X07rEBuiWKBlCKBxDPUwHQPk rEosuj6cwG6lQi9+PGNvbCB3 eQT3qC4xFUGhTlM3PYbeD961Km SwiGCqYstgf4kkg6htpHa4DcMm WAOylxJpmVdqYSV0b0UqBe75 J99qLHwvBNKoZSFvGDOyZYKvyS muli7ceN4cHc3+SU0cz7mins36 mZ16fHR+LVVoLCL3jSjpVOlj BKGeeW6pMRihGqN9IDIxLyImyP 22mXBxUIwoLd2whHwloJqfQQ0r LBXaudkbf113LsTly3npMMTc nWEyASdiAWP7C36wm7B6LYFwUB LuCSG5kOY5kB5ymIhlrmfllDPs pYqmxzNvuYhhFLdhSHrbT231 IHRvcDsnPlBhdGllbnQgTmFtZT z8W6RhEos5AARgqKvyPJ6dnLEf KSmzKa9uqFxcdIpdOT4jNSUe sbkze057WuQgx3zwPUSlrCEbYU bfUDE4K47pd9K7OTAsKUIcYOA9 sNE9eQ0urIiivgyhsQLwcNbt tmVldAtlSEqtMZdrZ845YCSwkX kbKoKkakJlRTSfcRZ8PR74NB40 hVEvu2F6eXR0B5SfYGVlkuqg wshyoRO7PABdOHSttM15Fr8diF zuTz9vHSDlEOQ6KOOelYYiU0Et vH5pJmTkSEHbITEwU3ObwYUm AMvvA209SWkdPhK6SAIiktUrW8 CrQYCnmIaoSnH9j7U4Kk8RP1B3 LG75WW31rBNje0J7bKJ6J0Kk CMKkqmtmhqdyfZO3VFCiIUTqzB 86Xt3diYyaCs4vVOWfDNZ3BWQd yGOsZ0DjtY9nBbOnFFLyNQDp X6XzyVUcWByoP023WOglIvO2DZ DglrCiQ5WyPWBfrYzhIpP3v7R9 En5RFPi5NH89AP39bRPqn2D3 zXP6I7GjISMvyikdjtbgrKT0YA JkXJFbkY58Eg9qfClrKf4aTYBd BRV0HKLzhZZtZ3GvvN4nGyGa CMBaTBAnN8ImtIDeXYfkU371HT pnCnG9OPQctdNwZ1PbOKBevHni QfF1a5M0Xl6NLFHaMN54BPO5 pJA0NF04BN60T9JqLdlfvBMkaU U+PHRhYmxlIHdpZHRoPScxMDAl MsBtzYiaSW7eBq5yZXHlKDAa hWgkbMNcHrWwi6mcKVHyVRfxQY 6lrNpcJ0XfxVJ8NFXec7a7Ur56 Q34iQ1XzwOJ+VGSkoKX5lIL1 tK0kVzUtTmA9UZqlR998NdEkhP BjXotwv1dot7rhbHb1UrJ2XSBz pkPbvEtbZPX3y4YgWu45A18c IHdpZHRoPSIxNSUiIHZhbGlnbj 4wqM0dAn7+AGHebMP0eDE6iI4q KyLzTfL2BWoyF020GkHoyDIb Ywruo8ajv3whgTt5CgDoQGOekf QnaFnxDEG3e9XpBi30B0BvuZud y6TuUjp5di51pIDdv4W7aAV2 L5WiCCHohnanoVWacJasBQ1bPT XeuygjXSVcsV9xVJCtX6g9ImLe YyD6KUtmW2KeduB9GORjfJXd FWxbFQH7Y10sy3T9LKQkAAXkKU R8kWR9eM4taGjvvbeziDGscGni feJihVmfKGkmXZivK611BJGq yEvbUCZvgS2qBHNvkIGgbQblWV 4wNTBpbjsnPlNURUlOLCBWSVJH GE6LDYFCYYU2F7DmKmh1WSGy dNgrON8biCXoNBmpCa1puDdxuL bdPG5iYFZcniusYZWthJ4vBSLe bNMwhBupUX1hQMXwxwono017 WeAhQWK0CKMlqKTfN9FsgL3dFf JuQKAdJJOhX1QqxUBxZDpiK518 WApjGsH6BPNouuAyZ6ZaUQVg mOumEsA0n6Y8Gu0kSX8bNX5tRW haTN38JP48xUZww5N8dHI3N6Cd MPVdalghfiowaBR1VGLpQNOz cQ86tSEoWCzdTu6tg1Q1b810FW UcXGNywF92Fi8utFasPHBmhWTI cY2odljtd4waigmsTgShFRHh UUq9PNm1IQKgfYbvOaRoQFG5Mj E0NXK0fSLfbM8ekNuaiycsjY3c Oyc+RdswVXOskhO7A7QuAtq9 YLOhsCdhGZ4skUBnJSzqSu5ciC grrYnhXE1jKFHztogxQESgxV6h GJXenLOduUrhAC0vSGXcjtjh o285ZtJsOLR9HYFrbGLlP6IoyH 8kPeRcISVyMAJjT1OfjFZvGQrl K732SWnhQvH8EBLnzfJrO3Sj FBLrhYomIaC1m0X3Ub4WNB4ZLX U2W9UpOne2QNOudXxjXN7ubMXs IUaqOl9wzCyfsTuvQQ9jFIUk mdloAPGqkW2xTSFvvIBacYonPR 8yMXJsosheq526JuOgYFU0VVEv cTBsO0IjlN3wNqElURMaAFNj C0BhqZWaSEnqD020UGtxKwA7AI YulbPcU0VxOCFcfPfzIiR6f8T5 Jx3WqDGaD2SnE9r1P6RwHqwf dHI+LB96BHWfSW33uSPdeFGcs5 snsDh2WwCjOZEeERE0dWtpHXkc n4YxCNAzX47vbMNvm6D9KELr cDzxgIXrViQovFN7eS9iEOkelp ntq4ckewnfKkirp0lezy93gR86 Z56cSIjhPOOtDHGiMQMvTDVb ePpndl0cwX6sSu7+BRFokOJ2sB N2nJ4jLjXwVoH9QCftM806GrPb dSGbUxjkl1ljb8ekoIk4HzRc PXTcexGfyIrfCNO0h8OiFe50H2 9sIHdpZHRoPSIyMCUiIHZhbGln bb5gfN0yVl0+OQ1tm6zgax57 dD48lCO+XWMiBCE4zQtwKPcqMI IrvF5pCEsfWzP3VQTnIrXxcL91 wLZxPHzaVv9tqGqfrBrqKO1r VOHypfrtd743LiPcq7ytTKSbzX XtETftLHZ2W93ad3E8BGAvLPQo UOG9xFM4pY5ioRlarhixbZRr lKdwavTokOckWRxuDUfxQ487QX GjsYrdRcYkzQAqJ3zbxuFYPV3g OjwvdGQ+JKMhMHU7gIfoYIrj XZPdwW7tPETxH8v4BpSrGqR4RI hmJ4EsnjI4ZNFmbPMaPILyrZYB eC5syofjf2rmymoeHvBiSMCj PNd3JLo0DOKdyZrcBnGvJAG6Bo W4BLD4eNTaxN2mkRnbxrnmpT0e Oyc+RklOOjwvdGQ+PHRkIHN0 tFtzYAeaSDXhiL9jFPIfF7l2Df LvFaD7FOveO3OrtkP1OQKnuDCb FVTnlILZaD6gqmiip8rxfnsb XkLwHXEjDAu6CVf1GCMacUvcNg BcHFM8HgP0RTV8tHGfqH3jwIfm gienmJ4mWvh+TVJOOjwvdGQ+ VMAqEJO8lIhjILzpEKZysJ4vMG ShU4o4GlGgEaK6GRldU6SwfkU7 EYOxbKIyKMZqtNNYrY1cincy y1brczaaDmLvITVgRWy9YWy1AN ZesBuwLdZsWYR0LqP5HMU7kYQu eZ2coSdfgdepfE7uRne+UGF5 KVO6GG55FK82P2JpXpbctTEzpE U+PHRhYmxlIHdpZHRoPScxMDAl DwLisDktCP6iUf8sJUJmENNp bGx (more content not included)... Normal [facility] ED Clinical Summaryon 2021 ED Clinical Summary [facility] - Emergency Department [address] [place], [place] [id number] ED Clinical Summary PERSON INFORMATION Name: ZULEIKA WYATT Age: 31 Years Sex: FEMALE : 1990 MRN: Acct#: Visit Reason: Rib/trunk pain-swelling; ABD PAIN Arrival: 11/13/2021 16:30:24 Discharge: 11/13/2021 18:01:00 LOS: 000 01:31 Check In: 11/13/2021 16:30:24 Checkout:11/13/2021 18:01:00 Address: [address] [place] [address] [place] [id number] PCP: Andie Stoddard PROVIDER INFORMATION Provider Role Assigned Unassigned [facility] 11/13/2021 16:34:49 Alfreda DURAN, [facility] ED Nurse 11/13/2021 16:34:57 VITALS INFORMATION [...] With: Address: When: CUONG ORTIZ [address] [place] [address] Within 1 to 2 days Comments: Diagnosis [...] results be sent to Dr. Ortiz, your WINDER OPERATOR physician. She will contact his office [...] Patient/family/caregiver verbalizes understanding of instructions given Comment: [facility] ED Note-Nursingon 11-13-2021 ED Note-Nursing pt [...] with steady gait and no assistance. Normal [facility] ED Patient Summaryon 022 ED Patient Summary [facility] - Emergency Department [address] [place] [address] PATIENT DISCHARGE INSTRUCTIONS Patient Information Name: ZULEIKA WYATT Age: 31 Years Date of : 1990 Reason For Visit: Rib/trunk pain-swelling; ABD PAIN Arrival Time: 11/13/2021 16:30:24 Primary Care Physician: Andie Stoddard Attending Physician: Gamaliel Wyman MD Comment: Visit Diagnosis: Diagnoses This Visit Elevated blood pressure reading (R03.0) History of abdominal pain (Z87.898) at early stage (Z34.90) Rib/trunk pain-swelling ([id number]) Prescription Information: If you have been given a prescription for narcotics, seek immediate medical attention if you have any difficulty breathing or any sudden status changes such as confusion and sleepiness. If you or anyone you know is experiencing suicidal thoughts, mental health, alcohol and/or drug addiction problems; contact the [facility] 07/01 Crisis Hotline -Izhw 8UEZH su [phone]. If you received any narcotics, sedation, or [...] With: Address: When: CUONG ORTIZ [address] [place] [address] Within 1 to 2 days Comments: Diagnosis [...] results be sent to Dr. Ortiz, your WINDER OPERATOR physician. She will contact his office [...] you received today in the [facility] Emergency Department were for an urgent problem and are not intended as complete care. It is important for you to follow up with a doctor, nurse practitioner, or physician?s collections assistant for ongoing care. If your symptoms [...] can reach you if necessary. [facility] Emergency Department has provided you with a complete list of medications post discharge. Please inform your manager sales and marketing/provider of your visit and for further instruction [...] (more content not included)... Normal [facility] hCG Quantitativeon 2 hCG Quantitative 17516.0 mIU/mL High 0.0-0.6 [facility] Comment on above: Order Comment: Pleas e call or fax results to Dr. Ortiz's office Result Comment: Resu lt confirmed by dilution Post-Menopausal Reference Range is: 0.1-11.6 mIU/mL Performed By: #### 7 [id number] #### [facility] (DEFAULT) [address] [place] [address] Coding Summary.on 12-19-2018 Coding Summary. CODING DATE: 019 FINAL [facility] DSC STATUS: Left Against Medical Advice PAYOR: Medicaid EA DESCRIPTION 0410 URINALYSIS ADMIT DX: REASON FOR VISIT DX: Z32.00 Encounter for test, result unknown FINAL DX: PRINCIPAL: Z53.21 Procedure and treatment not carried out due to patient leaving prior to being seen by health care provider SECONDARY: PYMT PROC [facility] [place] [place] STAT DESCRIPTION DOCTOR NAME DATE NOTE: The code number assigned matches the documented diagnosis and / or procedure in the patient's chart. However, the narrative phrase printed from the coding software may appear abbreviated, or result in slightly different terminology. Coded By: Norah Boykin Date Saved: 12/19/2018 10:35 am Normal [facility] ED Clinical Summaryon 2018 ED Clinical Summary (Inserted Image. Elena ble to display) [address] [address] ED Clinical Summary Person Information Name: ZULEIKA VILLALTA/[facility] Age: 28 Years : 1990 12:00 AM Sex: Female Language: PCP: Marital Status: Phone: [phone] Visit Id: Visit Reason: Test; MENSTRUAL PROBLEMS [...] 5:58 PM 12/15/2018 5:58 PM ADDRESS: [address] [place] [id number] [facility] DOC NOTES: MEDICAL INFORMATION: Prescriptions Given: PATIENT EDUCATION INFORMATION: Instructions: Follow up: DIAGNOSIS: Normal [facility] ED Patient Education Noteon 12-15-2018 ED Patient Education Note Normal [facility] ED Patient Summaryon 019 ED Patient Summary (Inserted Image. Elena ble to display) [address] [address] Patient Discharge Instructions Person Information Name: ZULEIKA VILLALTA Age: 28 Years Arrival Date: 12/15/2018 4:37 PM Discharge Diagnosis: Primary Care Physician: Provider Information Primary Provider: Advanced Sales And Service Consultant:None The exam and treatment you received in the Emergency Department were for an urgent problem and are not intended as complete care. It is important that you follow up with a doctor, nurse practitioner, or physician?s collections assistant for ongoing care. If your symptoms [...] opioids can be used to help relieve rxerkgxl-gq-fyuerk pain and are often prescribed following a [...] be struggling with addiction, tell your health career orientation teacher and ask for guidance or call [facility] National Helpline at 5-272-253-HQRK. v Source: [place] Department of Health and Human Services/Center for Disease Control & Prevention [facility] Medications Given: Medication Dose Route No medications found. Medication Information: Comment: Pharmacy Information: Thank you for choosing [facility] Patient Education Materials: JADEN Jacome [place] , have received the following patient education materials/instructions and have verbalized understanding: Patient Education Materials: Follow-up Instructions: Prescriptions: Patient Signature __ Clinician/Nurse Signature Date 12/15/18 17:58:10 Normal [facility] Progress Note-Nurseon 2018 Progress Note-Nurse Patient: [...] to take care of her daughter. Normal [facility] U BetaHcg Qualon 12-15-2018 HCG.beta subunit (U) [Moles/Vol] Negative Normal [facility] Comment on above: Performed By: #### 2 [id number], [id number] #### [facility] [address] [place] [address] UA With Cult Reflexon 2018 Bacteria LM Ql (Urine sed) TRACE Normal Trace [facility] Comment on above: Performed By: #### 2 [id number], [id number] #### [facility] [address] [place] [address] Bilirubin Ql (U) Negative Normal Negative [facility] Comment on above: Performed By: #### 2 [id number], [id number] #### [facility] [address] [place] [address] Clarity (U) CLEAR Normal Clear [facility] Comment on above: Performed By: #### 2 [id number], [id number] #### [facility] [address] [place] [address] Color (U) YELLOW Normal Yellow [facility] Comment on above: Performed By: #### 2 [id number], [id number] #### [facility] [address] [place] [address] Epithelial cells.squamous LM.HPF (Urine sed) [#/Area] 0-2 Normal 0-2 [facility] Comment on above: Performed By: #### 2 [id number], [id number] #### [facility] [address] [place] [address] Glucose Test strip (U) [Mass/Vol] Negative Normal Negative [facility] Comment on above: Performed By: #### 2 [id number], [id number] #### [facility] [address] [place] [address] Hemoglobin Ql (U) Negative Normal Negative [facility] Comment on above: Performed By: #### 2 [id number], [id number] #### [facility] [address] [place] [address] Ketones (U) [Mass/Vol] Negative Normal Negative Fi [facility] Comment on above: Performed By: #### 2 [id number], [id number] #### [facility] [address] [place] [address] [place].plasma/[place] .RBC (Bld) [Mass ratio] 0-3 Normal 0-3 [facility] Comment on above: Performed By: #### 2 [id number], [id number] #### [facility] [address] [place] [address] Nitrite Ql (U) Negative Normal Negative [facility] Comment on above: Performed By: #### 2 [id number], [id number] #### [facility] [address] [place] [address] pH (U) 6.5 [pH] 5.0-9.0 [facility] Comment on above: Performed By: #### 2 [id number], [id number] #### [facility] [address] [place] [address] Protein (U) [Mass/Vol] Negative Normal Negative Fi [facility] Comment on above: Performed By: #### 2 [id number], [id number] #### [facility] [address] [place] [address] Specific gravity (U) [Rel density] 1.010 1.005-1.03 0 [facility] Comment on above: Performed By: #### 2 [id number], [id number] #### [facility] [address] [place] [address] UA Spec Desc Clean Catch Normal [facility] Comment on above: Performed By: #### 2 [id number], [id number] #### [facility] [address] [place] [address] Urobilinogen Qn (U) 0.2 {Pamela'U}/dL Normal 0.0-1.0 [facility] Comment on above: Performed By: #### 2 [id number], [id number] #### [facility] [address] [place] [address] WBC Auto Ql (U) Negative Normal Negative [facility] Comment on above: Performed By: #### 2 [id number], [id number] #### [facility] [address] [place], [place] [id number] WBC LM.HPF (Urine sed) [#/Area] 0-5 Normal 0-5 [facility] Comment on above: Performed By: #### 2 [id number], [id number] #### [facility] [address] [place] [address] Auto Diffon 12-12-2017 Basophils Auto #/vol (Bld) 0.1 E3/mcL Normal 0.0-0.2 [facility] Comment on above: Order Comment: Order Added by Discern Expert. Performed By: #### 2 [id number] ####KADEN BairdX[address]Sdcv[address] [place] [address] Basophils/100 WBC Auto (Bld) 0.9 % Normal 0.0-2.0 [facility] Comment on above: Order Comment: Order Added by Discern Expert. Performed By: #### 2 [id number] ####KADEN [address] [place] [address] Eos Absolute 0.0 E3/mcL Normal 0.0-0.7 [facility] Comment on above: Order Comment: Order Added by Discern Expert. Performed By: #### 2 [id number] ####KADEN BairdFqiHqec[address] [place] [address] Eosinophils/100 leukocytes 0.4 % Normal 0.0-11.0 [facility] Comment on above: Order Comment: Order Added by Discern Expert. Performed By: #### 2 [id number] ####KADEN BairdOugVkeh[address] [place] [address] Lymphocytes 1.4 E3/mcL Normal 1.2-3.4 [facility] Comment on above: Order Comment: Order Added by Discern Expert. Performed By: #### 2 [id number] ####KADEN BairdGrrEggv[address] [place] [address] Lymphocytes/100 leukocytes 16.6 % Low 20.0-55.0 [facility] Comment on above: Order Comment: Order Added by Discern Expert. Performed By: #### 2 [id number] ####KADEN BairdCubFqhr[address] [place] [address] Nelson Absolute 0.5 E3/mcL Normal 0.0-0.7 [facility] Comment on above: Order Comment: Order Added by Discern Expert. Performed By: #### 2 [id number] ####KADEN BairdYbfOfof[address] [place] [address] Monocytes/100 leukocytes 5.5 % Normal 0.0-10.0 [facility] Comment on above: Order Comment: Order Added by Discern Expert. Performed By: #### 2 [id number] ####KADEN BairdShuQoix[address] [place] [address] Neutro Absolute 6.7 E3/mcL High 1.4-6.5 [facility] Comment on above: Order Comment: Order Added by Discern Expert. Performed By: #### 2 [id number] ####KADEN [address] [place] [address] Neutro Auto 76.6 % High 37.0-75.0 [facility] Comment on above: Order Comment: Order Added by Discern Expert. Performed By: #### 2 [id number] ####KADEN [address] [place] [address] CBC w/ Auto Diffon 8 Erythrocyte distribution width Auto Ratio (RBC) 15.0 % High 11.5-14.5 [facility] Comment on above: Performed By: #### 2 213025 ####KADEN [address] [place] [address] Erythrocytes (RBC) 4.94 E6/mcL Normal 3.90-5.40 [facility] Comment on above: Performed By: #### 2 970037 ####KADEN [address] [place] [address] Hematocrit (HCT) 40.0 % Normal 36.0-48.0 [facility] Comment on above: Performed By: #### 2 798375 ####KADEN [address] [place] [address] Hemoglobin mass conc (Bld) 13.0 g/dL Normal 12.0-16.0 [facility] Comment on above: Performed By: #### 2 604118 ####KADEN [address] [place] [address] MCH 26.2 pg Low 27.0-31.0 [facility] Comment on above: Performed By: #### 2 391399 ####KADEN [address] [place] [address] MCHC mass conc (RBC) 32.4 g/dL Low 33.0-37.0 [facility] Comment on above: Performed By: #### 2 502390 ####KADEN [address] [place] [address] MCV 81.0 fL Normal 78.0-100.0 [facility] Comment on above: Performed By: #### 2 646297 ####KADEN [address] [place] [address] Platelet mean volume (PMV) 7.5 fL Normal 7.4-11.0 [facility] Comment on above: Performed By: #### 2 119972 ####KADEN [address] [place] [address] Platelets 347 E3/mcL Normal 130-400 [facility] Comment on above: Performed By: #### 2 767367 ####KADEN [address] [place] [address] WBC (Leukocytes) 8.7 E3/mcL Normal 3.6-11.0 [facility] Comment on above: Performed By: #### 2 645914 ####KADEN [address] [place] [address] CMPon 12-12-2017 Alanine aminotransferase (ALT) 14 Int._Unit/L Normal 10-40 [facility] Comment on above: Performed By: #### 2 235715 ####KADEN [address] [place] [address] Albumin 3.8 g/dL Normal 3.2-5.0 [facility] Comment on above: Performed By: #### 2 438670 ####KADEN [address] [place] [address] Albumin/Globulin Ratio 1.0 {ratio} Low 1.1-1.9 [facility] Comment on above: Performed By: #### 2 352354 ####KADEN [address] [place] [address] Alk Phos 75 Int._Unit/L Normal 42-121 [facility] Comment on above: Performed By: #### 2 436283 ####KADEN [address] [place] [address] Aspartate aminotransferase (AST) 18 Int._Unit/L Normal 10-42 [facility] Comment on above: Performed By: #### 2 214929 ####KADEN [address] [place] [address] Bili Total 1.0 mg/dL Normal 0.2-1.0 [facility] Comment on above: Performed By: #### 2 266619 ####KADEN BairdXynIrdg[address] [place] [address] BUN/Creatinine Ratio 12.5 ratio Normal 5.4-30.0 [facility] Comment on above: Performed By: #### 2 137142 ####KADEN BairdKafRsvt[address] [place] [address] Creatinine 0.8 mg/dL Normal 0.6-1.3 [facility] Comment on above: Performed By: #### 2 766809 ####KADEN [address]wWxtk[address] [place] [address] Globulin 3.8 g/dL Normal 2.0-4.0 [facility] Comment on above: Performed By: #### 2 406796 ####KADEN [address] [place] [address] Protein 7.6 g/dL Normal 6.4-8.3 [facility] Comment on above: Performed By: #### 2 295515 ####KADEN ShnZaqw[address] [place] [address] Urea nitrogen 10 mg/dL Normal 7-18 [facility] Comment on above: Performed By: #### 2 842746 ####KADEN JikBkcg60[address] [place] [address] Calcium 9.3 mg/dL Normal 8.4-10.2 [facility] Comment on above: Performed By: #### 2 265046 ####KADEN [address]Zphu[address] [place] [address] Chloride 105 mmol/L Normal 98-107 [facility] Comment on above: Performed By: #### 2 541038 ####KADEN B[address]UmlCjtg[address] [place] [address] CO2 25.1 mmol/L Normal 24.0-30.0 [facility] Comment on above: Performed By: #### 2 159766 ####KADEN [address]Ftib[address] [place] [address] Glucose mass conc 101 mg/dL High 70-99 [facility] Comment on above: Performed By: #### 2 201795 ####KADEN [address] [place] [address] Potassium molar conc 3.4 mmol/L Low 3.5-5.1 [facility] Comment on above: Performed By: #### 2 572043 ####KADEN [address] [place] [address] Sodium 140 mmol/L Normal 136-145 [facility] Comment on above: Performed By: #### 2 244369 ####KADEN [address] [place] [address] Lipase Levelon 12-12-2017 Lipase Lvl 30 U/L Normal 8-57 [facility] Comment on above: Performed By: #### 2 160508 ####KADEN [address] [place] [address] UA Completeon 12-12-2017 UA Blood 3+ Normal Negative [facility] Comment on above: Performed By: #### 2 947563 ####KADEN IvbJlts[address] [place] [address] UA Bacteria Trace Abnormal None [facility] Comment on above: Performed By: #### 2 084730 ####KADEN O[address]Ixua[address] [place] [address] UA Clarity SltCloudy Abnormal Clear [facility] Comment on above: Performed By: #### 2 171468 ####KADEN S[address]zYtoz[address] [place] [address] UA Hyal Cast 0-2 Normal 0-2 [facility] Comment on above: Performed By: #### 2 001798 ####KADEN W[address]Kcgs[address] [place] [address] UA Leuk Est 3+ Abnormal Negative [facility] Comment on above: Performed By: #### 2 294023 ####KADEN CsiLbpv1703 [place] [address] UA Mucous Many Abnormal Trace [facility] Comment on above: Performed By: #### 2 367129 ####KADEN PpbLnja8173 [place] [address] UA Nitrite Negative Normal Negative [facility] Comment on above: Performed By: #### 2 884452 ####KADEN [address] [place] [address] UA pH 5.0 Normal 4.6-8.0 [facility] Comment on above: Performed By: #### 2 432986 ####KADEN [address] [place] [address] UA Protein 1+ Abnormal Negative [facility] Comment on above: Performed By: #### 2 712665 ####KADEN [address] [place] [address] UA Spec Grav 1.026 Normal 1.003-1.03 0 [facility] Comment on above: Performed By: #### 2 932918 ####KADEN [address] [place] [address] UA Squam Epithelial 0-5 Normal 0-5 [facility] Comment on above: Performed By: #### 2 852048 ####KADEN [address] [place] [address] UA Urobilinogen 2.0 mg/dL Abnormal [facility] Comment on above: Performed By: #### 2 181027 ####KADEN [address] [place] [address] UA WBC >50 Abnormal 0-5 [facility] Comment on above: Performed By: #### 2 759801 ####KADEN [address]Abeu[address] [place] [address] Urine, color Yellow Normal Yellow [facility] Comment on above: Performed By: #### 2 018666 ####KADEN [address] [place] [address] Urine, erythrocytes 20-50 Abnormal 0-3 [facility] Comment on above: Performed By: #### 2 242173 ####KADEN [address]PuuUalp[address] [place] [address] Urine, glucose Negative Normal Negative [facility] Comment on above: Performed By: #### 2 455520 ####KADEN AbbLamx[address]42 [place] [address] Urine, ketones presence Trace Normal [facility] Comment on above: Performed By: #### 2 757119 ####KADEN [address]BeaViuc[address] [place] [address] Urine, urobilinogen Negative Normal Negative [facility] Comment on above: Performed By: #### 2 581977 ####KADEN [address] [place] [address] eGFRon 12-12-2017 eGFR AA >60 Normal [facility] Comment on above: Order Comment: Order Added by Discern Expert. Performed By: #### 2 490658 ####KADEN [address] [place] [address] eGFR (non-black) mL/min/{1.73_m2} Normal [facility] Comment on above: Order Comment: Order Added by Discern Expert. Performed By: #### 2 013543 ####KADEN [address] [place] [address] HISTORY PHYSICALon 8 HISTORY PHYSICAL HNO ID: [id number] thor: Clara Baker WolfeService: Maternal MedicineAuthor Type: PhysicianType: HANDPFiled: 12/02/2017 9:04 AMNote Text:[facility] DOCUMENTDISCHARGE SUMMARYPatient Name: Zuleika Gtz Date: [...] in 4 weeks with provider.DO Debo Vanegas [facility] PROGRESSon 12-02-2017 PROGRESS HNO ID: [id number] thor: Marie Lema (Res) LendeService: ObstetricsAuthor Type: [...] with more than 50% of the total ugss-pu-omfvguyf of the visit in counseling / coordination [...] decreasing.Ambulating without difficulty.OBJECTIVE:PHYSI GEN EXAM:Heart: RR, S1, S3Jyjcy: clear to auscultationAbdomen: Soft Bowel sounds present [...] SOCIAL WORKon 12-02-2017 SOCIAL WORK HNO ID: [id number] thor: Meredith () ManueloService: Social WorkAuthor Type: Social WorkerType: Social WorkFiled: 12/02/2017 12:25 PMNote Text:SOCIAL WORK CONSULT NOTESERVICE DATE: 12/02/2017SERVICE TIME: 1015Referred by: Jose for visit:Maternal/ - adjustment to conditionLiving Arrangement: HomeLives With: PartnerFinancial Resources: DisabledPrimary Contact:Extended Emergency Contact Information DARRELL BRANCH, IIPrw. d. [facility] Emergency Contact: No,ContactRelation: OtherSupportive: YesOther Important [...] from hospital. (FOBparents are Anamika Munoz of [address] [place] [address], [facility]).Per pt and FOB, all needed baby supplies and equipment are at the [facility] and a nursery has been set up.Per pt, name of baby girl is Martha Branch.Pt states she is on SSI and WIC.Pt shares that she is in ongoing counseling at [facility] in [place] and has appointments 2 x per month.Discussed with pt and FOB signs and sx of depression; safe babysleep and discussed ways to deal with crying . Pt again states sheis going to rely on her support system.No additional issues identified at this time. Encouraged pt and FOB toutilize services through [facility]. Providedcontact information.Outcome/Recomm endations:Assistance through STime spent (minutes): 60SIGNATURE: CARLA Goncalves PATIENT NAME: Zuleika Hernandez: December 02, 2017 : 11:10 AM PAGER/CONTACT#: [facility] ANES INTRAOPon 12-01-2017 ANES INTRAOP HNO ID: [id number] thor: Terrance (Mender Hand) Richyervice: AnesthesiologyAuthor Type: Nurse AnesthetistType: Anesthesia IntraOpFiled: 12/01/2017 9:41 AMNote Text:ANALGESIA PROGRESS RECORDCATHETER REMOVAL/END OF CASESERVICE DATE: 12/01/2017REMOVAL DATE AND TIME: 11/30/2017, 1953DELIVERY DATE AND TIME: 11/30/2017 at 5:49 PMCATHETER REMOVAL:Catheter Removal: See MASHA Nursing noteSIGNATURE: Terrance Contreras APRN.CRNA PATIENT NAME: Zuleika Hernandez: December 01, 2017 : 9:40 AM PAGER/CONTACT #: [facility] ANES Keke 12-01-2017 ANES POST HNO ID: [id number] thor: Terrance (Mender Hand) Richyervice: AnesthesiologyAuthor Type: Nurse AnesthetistType: Anesthesia PostOpFiled: 12/01/2017 9:43 AMNote Text:POST ANESTHESIA EVALUATION NOTESERVICE DATE: 12/01/2017SERVICE TIME: 9:42 AMDOB: 1990Vitals: 12/01/1799Temp: 36.7 ?C (98.1 ?F) 36.8 ?C (98.2 ?F) 36.4 ?C (97.5 ?F) 36.4 ?C (97.5?F) 12/01/1799P: 119/55 102/61 107/57 116/72 12/01/1799ulse: 90 79 65 78 12/01/1799779129Fuys: 20 16 20 16 421082 902 002 639609ToR9: 100% 98% 98% 98%Validated Vital Signs: YesPOST [...] 2017 : 9:42 AM PAGER/CONTACT #: Debo [facility] PROGRESSon 12-01-2017 PROGRESS HNO ID: [id number] thor: Marie Lema (Res) LendeService: ObstetricsAuthor Type: [...] decreasing.Ambulating without difficulty.OBJECTIVE:PHYSI GEN EXAM:Heart: RR, S1, D4Abzro: clear to auscultationAbdomen: Soft Bowel sounds present [...] LambATE: December 01, 2017 : 6:40 AM [facility] ABO/Rh Confirmationon 2017 ABO group Nom (Bld) A Normal [facility] Comment on above: Performed By: #### A JESSIE #### [place] [address] RH Type Positive Normal [facility] Comment on above: Performed By: #### A JESSIE #### [place] [address] ANES PREOPon 11-30-2017 ANES PREOP HNO ID: [id number] thor: Aaron (Chiara) PoloService: AnesthesiologyAuthor Type: Nurse AnesthetistType: Anesthesia PreOpFiled: [...] of Sleep Apnea: DeniesHematocritDate Value Ref Range Ajnqsr8411/30/2017 32.3 (L) 34.1 - 44.9 % Final Platelet CountDate Value Ref Range Otarkg0311/30/2017 193 182 - 369 thou/cmm Final Vitals: [...] as needed. Disp: Rfl:Inpatient medications reviewed in [facility].I have interviewed and examined the patient. I have reviewed the medicalrecord , pertinent consults and/or the pre-anesthesia evaluation,pertinent labs, and test results.Significant changes in the patient's condition since the History andPhysical, not otherwise documented in primary service progress notes: NoThis contains updated information obtained within 48 hours ofSurgery/Procedure.SIGNAT URE: Hema Cuellar APRN.PROCESSING ARCHIVIST PATIENT NAME: Zuleika LambATE: November 30, 2017 : 12:13 PM : 1990 Normal [facility] Auto Diffon 11-30-2017 Basophils Auto #/vol (Bld) 0.1 E3/mcL Normal 0.0-0.2 [facility] Comment on above: Order Comment: Order Added by Discern Expert. Performed By: #### 2 599661 ####KADEN BairdKipEgzi[address] [place] [address] Basophils/100 WBC Auto (Bld) 0.9 % Normal 0.0-2.0 [facility] Comment on above: Order Comment: Order Added by Discern Expert. Performed By: #### 2 335987 ####KADEN B[address]WepPhjq[address]58 [place] [address] Eos Absolute 0.1 E3/mcL Normal 0.0-0.7 [facility] Comment on above: Order Comment: Order Added by Discern Expert. Performed By: #### 2 478185 ####KADEN BairdVmtQpmb2567 [place] [address] Eosinophils/100 leukocytes 1.0 % Normal 0.0-11.0 [facility] Comment on above: Order Comment: Order Added by Discern Expert. Performed By: #### 2 943764 ####KADEN [address] [place] [address] Lymphocytes 2.0 E3/mcL Normal 1.2-3.4 [facility] Comment on above: Order Comment: Order Added by Discern Expert. Performed By: #### 2 466461 ####KADEN [address] [place] [address] Lymphocytes/100 leukocytes 22.1 % Normal 20.0-55.0 [facility] Comment on above: Order Comment: Order Added by Discern Expert. Performed By: #### 2 255307 ####KADEN [address] [place] [address] Nelson Absolute 0.7 E3/mcL Normal 0.0-0.7 [facility] Comment on above: Order Comment: Order Added by Discern Expert. Performed By: #### 2 281207 ####KADEN [address] [place] [address] Monocytes/100 leukocytes 7.5 % Normal 0.0-10.0 [facility] Comment on above: Order Comment: Order Added by Discern Expert. Performed By: #### 2 781577 ####KADEN [address] [place] [address] Neutro Absolute 6.1 E3/mcL Normal 1.4-6.5 [facility] Comment on above: Order Comment: Order Added by Discern Expert. Performed By: #### 2 782463 ####KAEDN [address] [place] [address] Neutro Auto 68.5 % Normal 37.0-75.0 [facility] Comment on above: Order Comment: Order Added by Discern Expert. Performed By: #### 2 237436 ####KADEN [address] [place] [address] CBC w/ Auto Diffon 8 Erythrocyte distribution width Auto Ratio (RBC) 14.3 % Normal 11.5-14.5 [facility] Comment on above: Performed By: #### 2 983655 ####KADEN [address] [place] [address] Erythrocytes (RBC) 4.34 E6/mcL Normal 3.90-5.40 [facility] Comment on above: Performed By: #### 2 716840 ####KADEN [address] [place] [address] Hematocrit (HCT) 35.1 % Low 36.0-48.0 [facility] Comment on above: Performed By: #### 2 826003 ####KADEN [address] [place] [address] Hemoglobin mass conc (Bld) 11.6 g/dL Low 12.0-16.0 [facility] Comment on above: Performed By: #### 2 417083 ####KADEN [address] [place] [address] MCH 26.6 pg Low 27.0-31.0 [facility] Comment on above: Performed By: #### 2 589870 ####KADEN [address] [place] [address] MCHC mass conc (RBC) 32.9 g/dL Low 33.0-37.0 [facility] Comment on above: Performed By: #### 2 419400 ####KADEN [address] [place] [address] MCV 80.9 fL Normal 78.0-100.0 [facility] Comment on above: Performed By: #### 2 028923 ####KADEN [address] [place] [address] Platelet mean volume (PMV) 7.6 fL Normal 7.4-11.0 [facility] Comment on above: Performed By: #### 2 972861 ####KADEN [address] [place] [address] Platelets 217 E3/mcL Normal 130-400 [facility] Comment on above: Performed By: #### 2 878442 ####KADEN [address] [place] [address] WBC (Leukocytes) 8.8 E3/mcL Normal 3.6-11.0 [facility] Comment on above: Performed By: #### 2 804801 ####KADEN [address]Bjcz[address] [place] [address] CONSULTon 11-30-2017 CONSULT HNO ID: [id number] thor: Marie Lema (Res) LendeService: ObstetricsAuthor Type: [...] T0 L0 SAB1 TAB0 Ectopic0 Multiple0 Live Nagchg7Vsel of Baby 1: Not recorded Date: 2014 [...] pupils equal, no thyromegalyLungs: clearHeart: RR, S1, O1Ecivjzi: soft, nontender, no massesUterus: soft, NTExtremities: 1+ edemaDTRs: 2+FHT: bpmSt Spec Exam: (not done)CERVICAL EXAM:Dilation: 1 (11/30/17 0648 : Marie N (Res) Lende) cmStation: -2 (11/30/1748 : Marie N (Res) Lende)Effacement: 60 (11/30/1748 : Marie N (Res) Lende) %Position:Presentation: Pelvimetry: [...] Epi prn4. [place] [address]. anomalies- prominent cisterna magna, bilateral periventrcularnodular heterotopia, [...] EF 55%.10. H/o maternal clubfoot-s/p repair as fradel42. H/o tobacco abuseSigned out to [facility] for deliveryDr. Amado reviewed with Dr. MaldonadoSIGNATURE: Marie Hassan DO PATIENT NAME: Zuleika LambATE: November 30, 2017 : 6:49 AM PAGER/CONTACT #: [phone] Normal [facility] HISTORY PHYSICALon HISTORY PHYSICAL HNO ID: [id number] thor: Marie Lema (Res) JabiereService: ObstetricsAuthor Type: [...] T0 L0 SAB1 TAB0 Ectopic0 Multiple0 Live Oufnsz7Dbzb of Baby 1: Not recorded Date: 2014 [...] pupils equal, no thyromegalyLungs: clearHeart: RR, S1, C1Pphjnzx: soft, nontender, no massesUterus: soft, NTExtremities: 1+ edemaDTRs: 2+FHT: bpmSt Spec Exam: (not done)CERVICAL EXAM:Dilation: 1 (11/30/17 0648 : Marie N (Res) Lende) cmStation: -2 (11/30/17 0648 : [...] Epi prn4. FB soon5. [place] [address]. anomalies- prominent cisterna magna, bilateral periventrcularnodular heterotopia, [...] EF 55%.10. H/o maternal clubfoot-s/p repair as ipjich48. H/o tobacco abuseSigned out to [facility] for deliveryD/w Dr. AmadoSIGNATURE: Marie Hassan DO PATIENT NAME: Zuleika LambATE: November 30, 2017 : 6:49 AM PAGER/CONTACT #: [phone] Normal [facility] Hemogramon 11-30-2017 Erythrocyte distribution width Ratio (RBC) 13.6 % Normal 11.7-14.4 [facility] Comment on above: Performed By: #### C BC1 #### [place] [address] Hematocrit Volume Fraction (Bld) 32.3 % Low 34.1-44.9 [facility] Comment on above: Performed By: #### C BC1 #### [place] [address] Hemoglobin mass conc (Bld) 10.4 g/dL Low 11.2-15.7 [facility] Comment on above: Performed By: #### C BC1 #### [place] [address] MCH Entitic mass (RBC) 26.4 pg Normal 25.6-32.2 [facility] Comment on above: Performed By: #### C BC1 #### [place] [address] MCHC mass conc (RBC) 32.2 % Normal 31.6-34.8 [facility] Comment on above: Performed By: #### C BC1 #### [facility] [address] [place] [address] MCV Entitic volume (RBC) 82.0 fL Normal 79.4-94.8 [facility] Comment on above: Performed By: #### C BC1 #### [place] [address] Platelet mean volume Entitic volume (Bld) 9.9 fL Normal 9.4-12.3 [facility] Comment on above: Performed By: #### C BC1 #### [facility] [address] [place] [address] Platelets #/vol (Bld) 193 thou/cmm Normal 182-369 [facility] Comment on above: Performed By: #### C BC1 #### [facility] [address] [place] [address] RBC #/vol (Bld) 3.94 mil/cmm Normal 3.93-5.22 [facility] Comment on above: Performed By: #### C BC1 #### [facility] [address] [place] [address] RDW SD 40.6 fl Normal 36.4-46.3 [facility] Comment on above: Performed By: #### C BC1 #### [facility] [address] [place] [address] WBC #/vol (Bld) 9.85 thou/cmm Normal 3.98-10.04 [facility] Comment on above: Performed By: #### C BC1 #### [facility] [address] [place] [address] LD NOTEon 11-30-2017 LD NOTE HNO ID: [id number] thor: Marie Lema (Res) LendeService: ObstetricsAuthor Type: ResidentType: LANDD Delivery NoteFiled: 11/30/2017 6:19 PMNote Text: -------Attestation signed by Serenity Maldonado MD at 12/01/2017 6:04 PMI saw and evaluated the patient. I reviewed the resident's note and agree,except that patient seen by [facility] (patient has FAS, fetus with multipleanomlaies) service, consult placed to [facility] for management of labor AND delivery.Essential primip presented at 39w with PROM, had Pugh balloon AND Pitocin foraugmentaion. Late in labor noted tachycardia that improved with IVFB ANDTylenol (mother rico had elevated temp but felt warm). [facility] [place] [facility] N[facility] team for evaluation (was allowed tohave delivery to abdomen AND 30 sec delay for cord clamping). Pushed well AND hadSVD of a viable female (APGARS 8,9, weight of 3200g/7#1oz) over intactperineum. Uterus slightly boggy after delivery, responded to massage AND Pitocininfusion, EBL ~500cc.Serenity Maldonado MD ----OBSTETRICSDELIVERY SUMMARY - VAGINAL DELIVERYGestational Age at Delivery: 39n8hZiggwkg Date: 11/30/2017Service Time: 1799Keegan, Bg Zuleika Dillard [[id number]]Labor EventsRupture Date: 11/30/17Rupture Time: 224Rupture Type: PROMFluid Color: ClearInduction: Yes Induction Method: OxytocinEpisiotomy/Lacerat ion:Episiotomy: NoneLacerations: NoneEstimated Blood Loss (mL):Estimated Blood Loss (mL): 500Date and Time of :Date of : 11/30/17Time of : 1748Deliver Information:Primary Reason for Delivery : Ruptured MembranesAdditional [...] November 30, 2017 : 6:15 PM Normal [facility] NURSING PROGon 11-30-2017 NURSING PROG HNO ID: [id number] thor: Marguerite MagañaRn) ANEUDY Albarranervice: (none)Author Type: Registered NurseType: Nursing Progress NoteFiled: 11/30/2017 7:06 PMNote Text: INTRODUCED SELF TO PATIENT AND SUPPORT PERSONS. PLAN OF CARE DISCUSSED.ASSESSMENT PERFORMED. PATIENT DENIES COMPLAINTS. Normal [facility] NURSING PROG HNO ID: [id number] thor: Darcie MagañaRn) ANEUDY Landeroservice: NursingAuthor Type: Registered NurseType: Nursing Progress NoteFiled: 11/30/2017 10:03 AMNote Text:Patient up to shower for comfort. Boyfriend at side. On telemetrymonitors. RN remains in room. FHR difficult to maintain continuoustracing Normal [facility] NURSING PROG HNO ID: [id number] Author: Norah (Rn) KARRI Eastman Service: Nursing Author Type: Registered Nurse Type: Nursing Progress Note Filed: 11/30/2017 7:18 AM Note Text: Report given to Darcie DURAN and care transferred at this time. Normal [facility] PROCEDUREon 11-30-2017 PROCEDURE HNO ID: [id number] thor: Aaron (Chiara) Jarrod: AnesthesiologyAuthor Type: Nurse AnesthetistType: ProceduresFiled: 11/30/2017 12:30 [...] Catheter in Epidural Space: 5 cmInterspace: approximately L2-I3Bimqkx of Attempts: 1Wet Tap Complication: NoDural Puncture [...] nurses' documentation for additional vitals.SIGNATURE: Hema Cuellar APRN.PROCESSING ARCHIVIST PATIENT NAME: Zuleika BecerrilnDATE: November 30, 2017 : 12:27 PM PAGER/CONTACT #: [facility] PROGRESSon 11-30-2017 PROGRESS HNO ID: [id number] thor: Marie Lema (Joaquín) JabiereService: ObstetricsAuthor Type: ResidentType: Progress NotesFiled: 11/30/2017 5:04 PMNote Text:UpdatePatient is pushing in the OR. Cat I FHRT with baseline around 160s. updated and in house.Franki Neri 2017 5:04 PM [facility] PROGRESS HNO ID: [id number] Author: Darcie MagañaRn) KARRI Landeros Service: Nursing Author Type: Registered Nurse Type: Progress Notes Filed: 11/30/2017 3:29 PM Note Text: Patient feeling pressure, cervical exam 9.5 cm. NICU notified. Patient feels warm, but temp 36.9. Normal [facility] PROGRESS HNO ID: [id number] thor: Marie Lema (Res) LendeService: ObstetricsAuthor Type: [...] pt comfortable4. s/p FB5. [place] [address]. anomalies- prominent cisterna magna, bilateral periventrcularnodular heterotopia, [...] 3744 Normal [facility] PROGRESS HNO ID: [id number] thor: Yolanda (Res) Suzyervice: ObstetricsAuthor Type: ResidentType: Progress NotesFiled: 11/30/2017 [...] Status: Premature (11/30/17 0853 : Darcie Washington) KARRI Landeros)Rupture Date: 11/30/17 (11/30/17 0853 : Darcie Washington) Tigre RN)Rupture Time: 022 (11/30/17 0853 : Darcie Washington) Landeros, RN)Amniotic Fluid Color: Clear (11/30/17 0853 : Darcie (Rn) Tigre, RN)Additional Findings: NoneFETAL MONITORINGFHT: 145/mod/rare accel/+early decelToco: 1-3 minutesCategory: ILABSDiagnostic tests reviewed for today's visit: No new labsAssessment/Plan27 year old EGA:39w0d. Admitted for AOL PROM1. GBS-2. Pit per protocol3. Epi in- pt comfortable4. s/[place] FB5[place] [address]. anomalies- prominent cisterna magna, bilateral periventrcularnodular heterotopia, [...] EF 55%.10. H/o maternal clubfoot-s/p repair as cawsuc75. H/o tobacco abuseSIGNATURE: Yolanda Barbosa DO PATIENT NAME: Zuleika LambATE: November 30, 2017 : 1:11 PM PAGER/CONTACT #: [phone] Normal [facility] PROGRESS HNO ID: [id number] thor: Yolanda Almonteervice: ObstetricsAuthor Type: ResidentType: Progress NotesFiled: 11/30/2017 11:07 AMNote Text:OBSTETRICSINTRAPARTUM PROGRESS NOTESERVICE DATE: November 30, 2017SERVICE TIME: 11:05 AMSubjectivePatient with no complaints.ObjectiveLAST VITALS:Pulse BP Resp O2 Sat Temp Pain 75 142/75 18 100 % 36.6 ?C (97.9 ?F) 8/10PHYSICAL EXAM:CERVICAL EXAM:Last Exam Notes: Dilation: 1 (11/30/17 0648 : Marie Hassan)Effacement (%): 60 (11/30/17 0648 : Marie Lema (Res) Lenddevonte)Station: -2 (11/30/17 0648 : Marie Lema (Res) Lende)Presentation: (not recorded)MEMBRANES:Status: Membrane Status: Premature (11/30/17 0853 : Darcie Washington) KARRI Landeros)Rupture Date: 11/30/17 (11/30/17 0853 : Darcie Washington) KARRI Landeros)Rupture Time: 0225 (11/30/17 0853 : Darcie Washington) KARRI Landeros)Amniotic Fluid Color: Clear (11/30/17 0853 : Darcie Washington) KARRI Landeros)Additional Findings: NoneFETAL MONITORINGFHT: 145/mod/+accels/neg decelsToco: 2-4 minutesCategory: ILABSDiagnostic tests reviewed for today's visit: No new labsAssessment/Plan27 year old EGA:39w0d. Admitted for augmentation of labor forPROM?1. GBS-2. Pit per protocol3[place] [address]. [place] [address]. anomalies- prominent cisterna magna, bilateral periventrcularnodular heterotopia, [...] EF 55%.10. H/o maternal clubfoot-s/p repair as lukdgb51. H/o tobacco abuseSIGNATURE: Yolanda Barbosa DO PATIENT NAME: Zuleika LambATE: November 30, 2017 : 11:05 AM PAGER/CONTACT #: [phone] Normal [facility] PROGRESS HNO ID: [id number] Author: Darcie Washington) KARRI Landeros Service: Nursing Author Type: Registered Nurse Type: Progress Notes Filed: 11/30/2017 10:35 AM Note Text: Unable to find labwork for chart. Normal [facility] PROGRESS HNO ID: [id number] thor: Marie Lema (Res) LendeService: ObstetricsAuthor Type: ResidentType: Progress NotesFiled: 11/30/2017 10:33 AMNote Text:OBSTETRICSINTRAPARTUM PROGRESS NOTESERVICE DATE: November 30, 2017SERVICE TIME: 10:31 AMSubjectivePatient with no complaints.ObjectiveLAST VITALS:Pulse BP Resp O2 Sat Temp Pain 75 142/75 18 100 % 36.6 ?C (97.9 ?F) 10PHYSICAL EXAM:CERVICAL EXAM:Last Exam Notes: Dilation: 1 (11/30/1748 [...] Color: Clear (11/30/17 0853 : Darcie (Karri) Tigre, RN)Additional Findings: NoneFETAL MONITORINGFHT: 135s Moderate/acelerations present/decelerations absentToco: 2-4 minutesCategory: ILABSDiagnostic tests reviewed for today's visit: Most recent labs and imagingresults.Assessment/ Plan27 year old EGA:39w0d. Admitted for augmentation for PROM1. GBS-2. Pit per protocol3[place] [address]. [place] [address]. anomalies- prominent cisterna magna, bilateral periventrcularnodular heterotopia, [...] EF 55%.10. H/o maternal clubfoot-s/p repair as syavxm56. H/o tobacco abuse?SIGNATURE: Marie Hassan DO PATIENT NAME: Zuleika LambATE: November 30, 2017 : 10:31 AM PAGER/CONTACT #: [phone] Normal [facility] PROGRESS HNO ID: [id number] thor: Darcie (Rn) ANEUDY Landeroservice: NursingAuthor Type: Registered NurseType: Progress NotesFiled: 11/30/2017 10:13 AMNote Text:Patient remains in shower. RN and boyfriend at side. EFM on telemetryand adjusted while patient in shower. Difficult to keep baby on. Normal [facility] PROGRESS HNO ID: [id number] thor: Yolanda (Res) SnyderService: ObstetricsAuthor Type: ResidentType: Progress NotesFiled: 11/30/2017 7:35 AMNote Text:In to place FB. Pt tolerated procedure well. Continues to leak clearfluid. Pt uncomfortable with contractions.Cat I FHT, reactive with accelsToco: 2-5 minsHeather Romina, PGY-1Obstetrics and GynecologyPager [phone]/7:34 AM Normal [facility] Type and Screenon 11-30-2017 ABO group Nom (Bld) A Normal [facility] Comment on above: Performed By: #### T &S #### [place] [address] Comment See Below Normal [facility] Comment on above: Result Comment: Scre en &/or Xmatch expires in 3 days at 12 midnight. Redraw patient at that time. Performed By: #### T &S #### [place] [address] RH Type Positive Normal [facility] Comment on above: Performed By: #### T &S #### [address] [place], [place] [address] Progress Noteon 11-28-2017 Digital Cartographer Authentication Interface Message Text Routine VisitSubjective: Zuleika Villalta is being seen today for her obstetrical visit. She is at 38a6skekbhpzke. Patient reports no complaints. Movement: normal. She [...] [facility]; CYTOTEC I[facility] 18 at 5 pm at [facility]. Pre-Procedure formdone (CG)GBS culture: neg [...] [facility] POC Jacqui would like her follow up and contraception with Dr. Ivan.The total patient time of the visit was 15 minutes, of which greater than 50% ofthe time was spent counseling and coordinating care. Normal [facility] Progress Noteon 11-22-2017 Digital Cartographer Authentication Interface Message Text [facility] plan of care faxed to [facility] in event pt would arrive for urgent management. Normal [facility] Progress Noteon 11-21-2017 Digital Cartographer Authentication Interface Message Text Routine VisitSubjective: Zuleika Villalta is being seen today for her obstetrical visit. She is at 16n4cgnfhvllef. Patient reports that she went to [facility] last night due toconcerns for labor. She [...] CYTOTEC IOL 12-02-17 at 5 pm at [facility]. Pre-Procedure formdone (CG)GBS culture: neg [...] [facility] POC reviewedFollow up in one week for OB visit and BPP. The patient is scheduled for IOL on12/02/17.Oksana amado MD Normal [facility] Progress Noteon 11-12-2017 Digital Cartographer Authentication Interface Message Text Call from [facility] that pt presented there in labor. [facility] plan of care and ACOGs faxed by Toan Chen. Provided after hours MFM number provided. Normal [facility] Group B Strep Cultureon 10-16 Group B Strep Culture Group B Strep Cult ure: No Group B Streptococci isolated. Source: VAG Collected: 11/07/17 09:00 Site: Vaginal/Rectal Received : 11/07/17 22:01Group B Strep Culture FINAL 11/10/17 08:34 No Group B Streptococci isolated. Normal [facility] Comment on above: Performed By: #### G RBSC ####[facility] [place], [place] [phone] Progress Noteon 11-07-2017 Digital Cartographer Authentication Interface Message Text Routine VisitSubjective: Zuleika Villalta is being seen today for her obstetrical visit. She is at 26f0ggvzngzoru. Patient reports occasional nausea. No emesis. She [...] OB visit and BPP.Oksana Amado MD Normal [facility] Progress Noteon 10-24-2017 Digital Cartographer Authentication Interface Message Text Routine VisitSubjective: Zuleika [...] [facility] POC reviewedFollow up 2 weeks.The total patient time of the visit was 15 minutes, of which greater than 50% ofthe time was spent counseling and coordinating care.Marco Antonio Antonio, Normal [facility] Progress Noteon 10-15-2017 Digital Cartographer Authentication Interface Message Text Ped selection made. Updated prenatals Normal [facility] Progress Noteon 10-08-2017 Digital Cartographer Authentication Interface Message Text Thank you for [...] size. There was a patent foramen ovale, quhasashg-nl-lxbt shunt.Tricuspid valve:Normal tricuspid valve. There was normal [...] fetuses and in fetuses with CHD and gihdzpdckextt29n07, the ratio being below 0.3 )Impression and recommendations.1) Abnormal 3-vessel view, ascending aorta was moderately dilated. 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 thymic thoracic ratio (TT-ratio)=0.1 ( TT-ratio 0.44 in normal fetuses and in fetuses with CHD and najpuzkzjiqxi86f40, the ratio being below 0.3 )5) Normal [...] treatments, follow up fetalechocardiograms and follow ups.10) [place] Echocardiogram prior to the discharge from the nursery or earlier ifcardiac condition/status changes in any way. follow up and treatmentshould be determined on the basis of the findings on the initial echocardiogram.Counseling and/or coordination of care was greater than 35 minutes which is morethan 50% of the total time of 60 minutes spent on the encounter. Normal [facility] Digital Cartographer Authentication Interface Message Text Initial VisitSubjective: Zuleika [...] weeks for OB visit and BPP in [place].Oksana Amado MD Normal [facility] Cytogenomic Microarray Nivia sis of Bloodon 09-10-2017 Cytogenomic Microarray Analysis of Blood SEE BELOW Normal [facility] Comment on above: Result Comment: SPEC IMEN: BLOODCLINICAL INFORMATION: Learning disability[F81.9]TEST: CYTOGENOMIC MICROARRAY ANALYSISRESULT SUMMARY:Normal femaleNOMENCLATURE:arr(1-22,X)h1IKKKVCGMOWPOMN & COMMENTS:The cytogenomics microarray analysis indicated no [...] whole genome microarray analysis was performed the FDA-clearedUranium Energy(R) Dx platform, which contains approximately 2.7million markers, including 1,953,246 unique non-polymorphic copy numberprobes and 743,304 single nucleotide polymorphism (SNP) probes. Thegenome-wide functional resolution of this assay is approximately 25 kbfor deletions and 50 kb for duplications. This microarray andassociated software (Chromosome Analysis Suite Dx) were manufactured [employer] and used by the [facility]ogenetics and [facility]osticsLaboratories of [facility] for the purpose ofidentifying DNA [...] further information regarding intendeduse and limitations, see [email or web address]/cytoscandx.Note: The Cytogenetics Laboratory has this patient's blood [...] for additional testing. 09/19/2017 BIGG GARCIA, PH.D., [facility] 09/19/2017 Performed By: #### [facility] ####[address] [phone] MRI (SINGLE)on 018 MRI (SINGLE) MRI (SINGLE)CL [...] Dr. AJ CAMILO at 09/10/2017 10:21 Normal [facility] Progress Noteon 09-10-2017 Digital Cartographer Authentication Interface Message Text The total patient time of the visit was 15 minutes, of which greater than 50% of the time was spent counseling and coordinating care. Normal [facility] Auto Diffon 09-03-2017 Basophils Auto #/vol (Bld) 0.1 E3/mcL Normal 0.0-0.2 [facility] Comment on above: Order Comment: Order Added by Anamaria Expert. Performed By: #### 2 [id number] ####KADEN [address] [place] [address] Basophils/100 WBC Auto (Bld) 0.5 % Normal 0.0-2.0 [facility] Comment on above: Order Comment: Order Added by Anamaria Expert. Performed By: #### 2 [id number] ####KADEN [address] [place] [address] Eos Absolute 0.0 E3/mcL Normal 0.0-0.7 [facility] Comment on above: Order Comment: Order Added by Anamaria Expert. Performed By: #### 2 273118 ####KADEN [address] [place] [address] Eosinophils/100 leukocytes 0.4 % Normal 0.0-11.0 [facility] Comment on above: Order Comment: Order Added by Discern Expert. Performed By: #### 2 [id number] ####KADEN [address] [place] [address] Lymphocytes 1.3 E3/mcL Normal 1.2-3.4 [facility] Comment on above: Order Comment: Order Added by Discern Expert. Performed By: #### 2 535438 ####KADEN [address] [place] [address] Lymphocytes/100 leukocytes 13.1 % Low 20.0-55.0 [facility] Comment on above: Order Comment: Order Added by Discern Expert. Performed By: #### 2 204021 ####KADEN [address] [place] [address] Nelson Absolute 0.4 E3/mcL Normal 0.0-0.7 [facility] Comment on above: Order Comment: Order Added by Discern Expert. Performed By: #### 2 618901 ####KADEN [address] [place] [address] Monocytes/100 leukocytes 4.3 % Normal 0.0-10.0 [facility] Comment on above: Order Comment: Order Added by Discern Expert. Performed By: #### 2 338739 ####KADEN [address] [place] [address] Neutro Absolute 8.4 E3/mcL High 1.4-6.5 [facility] Comment on above: Order Comment: Order Added by Discern Expert. Performed By: #### 2 236189 ####KADEN [address] [place] [address] Neutro Auto 81.7 % High 37.0-75.0 [facility] Comment on above: Order Comment: Order Added by Discern Expert. Performed By: #### 2 462721 ####KADEN [address] [place] [address] CBC w/ Auto Diffon 8 Erythrocyte distribution width Auto Ratio (RBC) 13.1 % Normal 11.5-14.5 [facility] Comment on above: Performed By: #### 2 250855 ####KADEN [address] [place] [address] Erythrocytes (RBC) 3.90 E6/mcL Normal 3.90-5.40 [facility] Comment on above: Performed By: #### 2 144659 ####KADEN [address] [place] [address] Hematocrit (HCT) 34.7 % Low 36.0-48.0 [facility] Comment on above: Performed By: #### 2 999507 ####KADEN [address] [place] [address] Hemoglobin mass conc (Bld) 11.8 g/dL Low 12.0-16.0 [facility] Comment on above: Performed By: #### 2 777094 ####K[address] [place] [address] MCH 30.3 pg Normal 27.0-31.0 [facility] Comment on above: Performed By: #### 2 066896 ####[address] [place] [address] MCHC mass conc (RBC) 34.2 g/dL Normal 33.0-37.0 [facility] Comment on above: Performed By: #### 2 246852 ####KADEN [address] [place] [id number] MCV 88.8 fL Normal 78.0-100.0 [facility] Comment on above: Performed By: #### 2 818675 ####K[address] [place] [address] Platelet mean volume (PMV) 7.3 fL Low 7.4-11.0 [facility] Comment on above: Performed By: #### 2 859329 ####K[address] [place] [address] Platelets 218 E3/mcL Normal 130-400 [facility] Comment on above: Performed By: #### 2 556989 ####K[address] [place] [address] WBC (Leukocytes) 10.2 E3/mcL Normal 3.6-11.0 [facility] Comment on above: Performed By: #### 2 603134 ####K[address] [place] [address] Gest Scr Glu 1 Hron 09-04-19 18 Glucose mass conc 113 mg/dL Normal 70-140 [facility] Comment on above: Performed By: #### 2 089314 ####[address] [place] [address] FISH Probeon 08-13-2017 Protein mass conc SEE BELOW Normal [facility] Comment on above: Result Comment: SPEC IMEN: BLOOD - [id number] INFORMATION:TEST: FISH Analysis of the DiGeorge/VCFS Region [...] Metaphase images: 2The Vysis LSI DARREN Spectrum [place] Probe contains the DARREN gene (3'non-coding region of TUPLE1, S12G587, and R22O2038. The Vysis LSI ARSAspectrum Green Probe includes [...] performance characteristics determinedby the Cytogenetics Laboratory of [facility]. It hasnot been cleared or [...] J Med Barbara 66:250-256,1996. BIGG GARCIA, PH.D., [facility] 08/16/2017 Performed By: #### F MARIA ####[facility] [address] [place], [place] [phone] Progress Noteon 08-13-2017 Digital Cartographer Authentication Interface Message Text Met with patient [...] share information with FTC team, OB and disc pad grinding machine feeder signed. Pt plans to deliver in [place] with [facility]. Currently with Dr. Shekhar Dyson.Hardware Installation Coordinator is undecided. [facility] provided and discussed importance ofselection [...] was spent counseling and coordinating care. Normal [facility] Digital Cartographer Authentication Interface Message Text Thank you for [...] size. There was a patent foramen ovale, cvioxosju-at-kalx shunt.Tricuspid valve:Normal tricuspid valve. There was normal [...] 60 minutes spent on the encounter. Normal [facility] Progress Noteon 07-18-2017 Digital Cartographer Authentication Interface Message Text [facility] MATERNAL- MEDICINE CONSULTReferring/Requestin g Provider: VINI [...] no palpitations. She usually doesnot see a fishing worker, but did have a recent echo due [...] Stroke Maternal Grandmother Heart Disease Maternal Grandmother NC Clotting Disorder Maternal Grandfather Miscarriages / Stillbirths [...] as a child 07/18/2017 Consider evaluation with secondary social studies teacher to assess for any needs duringpregnancy or [...] for her genetics consult.She has transportation to [place] and is willing to be [facility].The total patient time of the visit was 30 minutes, of which was greater than50% of the time was spent counseling and coordinating care. Normal [facility] IGP W/hpv Rfx [id number] 05-07 Diagnosis: See Ref Lab Report Normal [facility] Comment on above: Order Comment: Thin Prep. Performed By: #### 2 [id number] ####KADEN [address] [place] [address] C Urineon 05-03-2017 C Urine Final Report: Normal skin alonso isolated Normal [facility] Comment on above: Performed By: #### 2 222435 ####KADEN [address] [place] [address] RPRon 05-03-2017 RPR Ql Non-Reactive Normal Non-Reacti ve [facility] Comment on above: Performed By: #### 2 659508 ####KADEN [address] [place] [address] Hep Bs Agon 05-02-2017 BSA (Body Surface Area) Negative Normal Negative [facility] Comment on above: Result Comment: Perf ormed At: [facility] [address]patcp[address] [place], [place] [id number] Vincent PhD Ph:[phone] Performed By: #### 2 094973 ####KADEN [address] [place] [address] ABO/Rh Echoon 05-01-2017 ABO/Rh E Interp... Positive Normal [facility] Comment on above: Performed By: #### 2 660250 ####KADEN [address] [place] [address] Antibody Screen Cap...on Screen Interp... Negative Normal [facility] Comment on above: Performed By: #### 2 335978 ####KADEN [address] [place] [address] Auto Diffon 05-01-2017 Basophils Auto #/vol (Bld) 0.0 E3/mcL Normal 0.0-0.2 [facility] Comment on above: Order Comment: Order Added by Discern Expert. Performed By: #### 2 355980 ####KADEN Urinalysis Manual [address] [place] [address] Basophils/100 WBC Auto (Bld) 0.4 % Normal 0.0-2.0 [facility] Comment on above: Order Comment: Order Added by Discern Expert. Performed By: #### 2 839977 ####KADEN Urinalysis Manual [address] [place] [address] Eos Absolute 0.1 E3/mcL Normal 0.0-0.7 [facility] Comment on above: Order Comment: Order Added by Discern Expert. Performed By: #### 2 554022 ####KADEN Urinalysis Manual [address] [place] [address] Eosinophils/100 leukocytes 0.7 % Normal 0.0-11.0 [facility] Comment on above: Order Comment: Order Added by Discern Expert. Performed By: #### 2 900592 ####KADEN Urinalysis Manual [address] [place] [address] Lymphocytes 1.8 E3/mcL Normal 1.2-3.4 [facility] Comment on above: Order Comment: Order Added by Discern Expert. Performed By: #### 2 551334 ####KADEN Urinalysis Manual [address] [place] [address] Lymphocytes/100 leukocytes 17.1 % Low 20.0-55.0 [facility] Comment on above: Order Comment: Order Added by Discern Expert. Performed By: #### 2 181514 ####KADEN Urinalysis Manual [address] [place] [address] Nelson Absolute 0.5 E3/mcL Normal 0.0-0.7 [facility] Comment on above: Order Comment: Order Added by Discern Expert. Performed By: #### 2 407362 ####KADEN Urinalysis Manual [address] [place] [address] Monocytes/100 leukocytes 5.0 % Normal 0.0-10.0 [facility] Comment on above: Order Comment: Order Added by Discern Expert. Performed By: #### 2 860493 ####K[place]EN [place] [address] Neutro Absolute 8.0 E3/mcL High 1.4-6.5 [facility] Comment on above: Order Comment: Order Added by Discern Expert. Performed By: #### 2 812338 ####KADEN Urinalysis Manual [address] [place] [address] Neutro Auto 76.8 % High 37.0-75.0 [facility] Comment on above: Order Comment: Order Added by Discern Expert. Performed By: #### 2 538564 ####K[place]EN [place] [address] CBC w/ Auto Diffon 7 Erythrocyte distribution width Auto Ratio (RBC) 15.2 % High 11.5-14.5 [facility] Comment on above: Performed By: #### 2 294587 ####KADEN Urinalysis Manual [address] [place] [address] Erythrocytes (RBC) 4.90 E6/mcL Normal 3.90-5.40 [facility] Comment on above: Performed By: #### 2 240774 ####KADEN Urinalysis Manual [address] [place] [address] Hematocrit (HCT) 41.1 % Normal 36.0-48.0 [facility] Comment on above: Performed By: #### 2 179211 ####KADEN Urinalysis Manual [address] [place] [address] Hemoglobin mass conc (Bld) 13.5 g/dL Normal 12.0-16.0 [facility] Comment on above: Performed By: #### 2 427200 ####KADEN Urinalysis Manual [address] [place] [address] MCH 27.5 pg Normal 27.0-31.0 [facility] Comment on above: Performed By: #### 2 741307 ####KADEN Urinalysis Manual [address] [place] [address] MCHC mass conc (RBC) 32.8 g/dL Low 33.0-37.0 [facility] Comment on above: Performed By: #### 2 097361 ####KADEN Urinalysis Manual [address] [place] [address] MCV 83.9 fL Normal 78.0-100.0 [facility] Comment on above: Performed By: #### 2 390821 ####KADEN Urinalysis Manual [address] [place] [address] Platelet mean volume (PMV) 8.0 fL Normal 7.4-11.0 [facility] Comment on above: Performed By: #### 2 778698 ####KADEN Urinalysis Manual [address] [place] [address] Platelets 246 E3/mcL Normal 130-400 [facility] Comment on above: Performed By: #### 2 462828 ####KADEN Urinalysis Manual [address] [place] [address] WBC (Leukocytes) 10.4 E3/mcL Normal 3.6-11.0 [facility] Comment on above: Performed By: #### 2 379316 ####KADEN Urinalysis Manual [place] [address] Chlamydia GC by PCRon 2016 Chlamydia by PCR. Not Detected Normal Not Detected [facility] Comment on above: Result Comment: Xper t CT/NG Assay performance has not been evaluated in patients less than 14 years of age. Performed By: #### 2 [id number] ####KADEN BairdCxnHhyy8437 [place] [address] Gonorrhoeae by PCR Not Detected Normal Not Detected [facility] Comment on above: Result Comment: Xper t CT/NG Assay performance has not been evaluated in patients less than 14 years of age. Performed By: #### 2 [id number] ####KADEN SzbRwno2283 [place] [address] HIV-1/2 Ag/Abon 05-01-2017 HIV-1/2 Ag/Ab Non-Reactive Normal Non-Reacti ve [facility] Comment on above: Performed By: #### 2 159826 ####KADEN [place] [address] Rubella IgG Lvlon 05-01-2017 Rubella IgG Lvl 50.8 (POS) Normal [facility] Comment on above: Result Comment: <10I U/ml NON REACTIVE: NOT [id number] IU/ml RUBELLA SPECIFIC AB PRESENT, EVALUATEFURTHER TO DETERMINE IMMUNE STATUS >15 IU/ml REACTIVE, IMMUNE Performed By: #### 2 [id number] ####KADEN RugTtiz3257 [place] [address] Auto Diffon 04-22-2017 Basophils Auto #/vol (Bld) 0.1 E3/mcL Normal 0.0-0.2 [facility] Comment on above: Order Comment: Order Added by Discern Expert. Performed By: #### 2 914566 ####KADEN Urinalysis Manual [place] [id number] Basophils/100 WBC Auto (Bld) 0.6 % Normal 0.0-2.0 [facility] Comment on above: Order Comment: Order Added by Discern Expert. Performed By: #### 2 735450 ####KADEN Urinalysis Manual [address] [place] [address] Eos Absolute 0.0 E3/mcL Normal 0.0-0.7 [facility] Comment on above: Order Comment: Order Added by Discern Expert. Performed By: #### 2 150549 ####KADEN Urinalysis Manual [address] [place] [address] Eosinophils/100 leukocytes 0.2 % Normal 0.0-11.0 [facility] Comment on above: Order Comment: Order Added by Discern Expert. Performed By: #### 2 141881 ####KADEN Urinalysis Manual [address] [place] [address] Lymphocytes 1.5 E3/mcL Normal 1.2-3.4 [facility] Comment on above: Order Comment: Order Added by Discern Expert. Performed By: #### 2 607495 ####KADEN Urinalysis Manual Syw[address]lsur[address] [place] [address] Lymphocytes/100 leukocytes 10.8 % Low 20.0-55.0 [facility] Comment on above: Order Comment: Order Added by Discern Expert. Performed By: #### 2 980459 ####KADEN Urinalysis Manual [address] [place] [address] Nelson Absolute 0.6 E3/mcL Normal 0.0-0.7 [facility] Comment on above: Order Comment: Order Added by Discern Expert. Performed By: #### 2 662671 ####KADEN Urinalysis Manual Fscgvwpr[address] [place] [address] Monocytes/100 leukocytes 4.4 % Normal 0.0-10.0 [facility] Comment on above: Order Comment: Order Added by Discern Expert. Performed By: #### 2 357646 ####KADEN Urinalysis Manual Yfqpbcbmrw[address] [place] [address] Neutro Absolute 11.3 E3/mcL High 1.4-6.5 [facility] Comment on above: Order Comment: Order Added by Discern Expert. Performed By: #### 2 862289 ####KADEN Urinalysis Manual Pmljvtqixw6153 [place] [address] Neutro Auto 84.0 % High 37.0-75.0 [facility] Comment on above: Order Comment: Order Added by Discern Expert. Performed By: #### 2 300961 ####KADEN Urinalysis Manual [address] [place] [address] BMPon 04-22-2017 BUN/Creatinine Ratio Unable to calc Normal 5.4-30.0 [facility] Comment on above: Performed By: #### 2 279993 ####KADEN Urinalysis Manual Cxkdtwppnb[address] [place] [address] Creatinine mg/dL Low 0.6-1.3 [facility] Comment on above: Performed By: #### 2 492717 ####KADEN Urinalysis Manual I[address]wzyrbps[address] [place] [address] Urea nitrogen 7 mg/dL Normal 7-18 [facility] Comment on above: Performed By: #### 2 084440 ####KADEN Urinalysis Manual Onsuzjohxj[address] [place] [address] Calcium 9.6 mg/dL Normal 8.4-10.2 [facility] Comment on above: Performed By: #### 2 128057 ####KADEN Urinalysis Manual Y[address]rkbqwvg[address] [place] [address] Chloride 103 mmol/L Normal 98-107 [facility] Comment on above: Performed By: #### 2 229849 ####KADEN Urinalysis Manual [address]rmcvsqj[address] [place] [address] CO2 21.7 mmol/L Low 24.0-30.0 [facility] Comment on above: Performed By: #### 2 234433 ####KADEN Urinalysis Manual Lfselsevux0296 [place] [address] Glucose mass conc 89 mg/dL Normal 70-99 [facility] Comment on above: Performed By: #### 2 353336 ####KADEN Urinalysis Manual Cslvsxmxag[address] [place] [address] Potassium molar conc 3.6 mmol/L Normal 3.5-5.1 [facility] Comment on above: Performed By: #### 2 613054 ####KADEN Urinalysis Manual Ukondrrvse0892 [place] [address] Sodium 136 mmol/L Normal 136-145 [facility] Comment on above: Performed By: #### 2 581474 ####KADEN Urinalysis Manual Rnpgggmzcp5902 [place] [address] CBC w/ Auto Diffon 7 Erythrocyte distribution width Auto Ratio (RBC) 14.8 % High 11.5-14.5 [facility] Comment on above: Performed By: #### 2 427160 ####KADEN Urinalysis Manual Ixlbmijqgj[address] [place] [address] Erythrocytes (RBC) 4.96 E6/mcL Normal 3.90-5.40 [facility] Comment on above: Performed By: #### 2 682210 ####KADEN Urinalysis Manual Gcppeeogbw10[address] [place] [address] Hematocrit (HCT) 40.9 % Normal 36.0-48.0 [facility] Comment on above: Performed By: #### 2 149362 ####KADEN Urinalysis Manual Ndbujloezx4933 [place] [address] Hemoglobin mass conc (Bld) 13.5 g/dL Normal 12.0-16.0 [facility] Comment on above: Performed By: #### 2 132550 ####KADEN Urinalysis Manual [address] [place] [address] MCH 27.2 pg Normal 27.0-31.0 [facility] Comment on above: Performed By: #### 2 662834 ####KADEN Urinalysis Manual Yfykaeuhvg3388 [place] [id number] MCHC mass conc (RBC) 33.0 g/dL Normal 33.0-37.0 [facility] Comment on above: Performed By: #### 2 804841 ####KADEN Urinalysis Manual Recobmwhrk[address] [place] [address] MCV 82.4 fL Normal 78.0-100.0 [facility] Comment on above: Performed By: #### 2 829426 ####KADEN Urinalysis Manual [address]lg[address] [place] [address] Platelet mean volume (PMV) 8.0 fL Normal 7.4-11.0 [facility] Comment on above: Performed By: #### 2 143140 ####KADEN Urinalysis Manual Vpjnldtmbv[address] [place] [address] Platelets 237 E3/mcL Normal 130-400 [facility] Comment on above: Performed By: #### 2 185387 ####KADEN Urinalysis Manual [address]pdhxuzg[address] [place] [address] WBC (Leukocytes) 13.5 E3/mcL High 3.6-11.0 [facility] Comment on above: Performed By: #### 2 359501 ####KADEN Urinalysis Manual [address]cyhv[address] [place] [address] UA Completeon 04-22-2017 UA Blood Negative Normal Negative [facility] Comment on above: Performed By: #### 2 651785 ####KADEN Urinalysis Manual M[address]jqlqjec[address] [place] [address] UA Ascorbic Acid 40 mg/dL High <=19 [facility] Comment on above: Performed By: #### 2 591725 ####KADEN Urinalysis Manual Yunxsakyqo13[address] [place] [address] UA Bacteria 3+ /HPF Abnormal None [facility] Comment on above: Performed By: #### 2 352758 ####KADEN Urinalysis Manual Orxjqyakku[address] [place] [address] UA Clarity SltCloudy Abnormal Clear [facility] Comment on above: Performed By: #### 2 047052 ####KADEN Urinalysis Manual Vevdcudrlu9[address] [place] [address] UA Leuk Est Negative Normal Negative [facility] Comment on above: Performed By: #### 2 799311 ####KADEN Urinalysis Manual Ihiwucshpd14[address] [place] [address] UA Mucous Few Abnormal Trace [facility] Comment on above: Performed By: #### 2 116621 ####KADEN Urinalysis Manual Tqlplhyefv[address] [place] [address] UA Nitrite Negative Normal Negative [facility] Comment on above: Performed By: #### 2 844668 ####KADEN Urinalysis Manual [address]lzxvgil[address] [place] [address] UA pH 8.0 Normal 4.6-8.0 [facility] Comment on above: Performed By: #### 2 319223 ####KADEN Urinalysis Manual Hzzrnoovyg[address] [place] [address] UA Protein Negative Normal Negative [facility] Comment on above: Performed By: #### 2 709245 ####KADEN Urinalysis Manual Pjwnuffboo[address] [place] [address] UA Spec Grav 1.012 Normal 1.003-1.03 0 [facility] Comment on above: Performed By: #### 2 189681 ####KADEN Urinalysis Manual X[address]hlb[address] [place] [address] UA Squam Epithelial 0-5 Normal 0-5 [facility] Comment on above: Performed By: #### 2 164716 ####KADEN Urinalysis Manual Aqlzexkfcw[address] [place] [address] UA Urobilinogen Negative Normal [facility] Comment on above: Performed By: #### 2 199248 ####KADEN Urinalysis Manual [address]izqubnd[address] [place] [address] UA WBC 0-5 Normal 0-5 [facility] Comment on above: Performed By: #### 2 037612 ####KADEN Urinalysis Manual [address]mpqpqngna[address] [place] [address] Urine, color Yellow Normal Yellow [facility] Comment on above: Performed By: #### 2 436370 ####KADEN Urinalysis Manual [address]uiqwbibs[address] [place] [address] Urine, glucose Negative Normal Negative [facility] Comment on above: Performed By: #### 2 976104 ####KADEN Urinalysis Manual Shxaqlcyic[address] [place] [address] Urine, ketones presence 1+ Abnormal Negative [facility] Comment on above: Performed By: #### 2 807456 ####KADEN Urinalysis Manual Kableskvlw[address] [place] [address] Urine, urobilinogen Negative Normal Negative [facility] Comment on above: Performed By: #### 2 945613 ####KADEN Urinalysis Manual Ukutoxcmwx6781 [place] [address] eGFRon 04-22-2017 eGFR AA >60 Normal [facility] Comment on above: Order Comment: Order added by Discern Expert. Performed By: #### 2 631640 ####KADEN Urinalysis Manual Jzznmtjivx1676 [place] [id number] eGFR (non-black) mL/min/{1.73_m2} Normal [facility] Comment on above: Order Comment: Order added by Discern Expert. Performed By: #### 2 565931 ####KADEN Urinalysis Manual Mhwfomxloh1460 [place] [address] C Urineon 04-20-2017 C Urine Final Report: Normal skin alonso isolated Normal [facility] Comment on above: Performed By: #### 2 296337 ####KADEN Urinalysis Manual Rzzeidfmgo4192 [place] [address] BMPon 04-18-2017 BUN/Creatinine Ratio 15.0 ratio Normal 5.4-30.0 [facility] Comment on above: Performed By: #### 2 943229 ####KADEN Bai1025 [place] [address] Creatinine 0.6 mg/dL Normal 0.6-1.3 [facility] Comment on above: Performed By: #### 2 905370 ####KADEN BairdFckZiuz8996 [place] [address] Urea nitrogen 9 mg/dL Normal 7-18 [facility] Comment on above: Performed By: #### 2 462883 ####KADEN MmhDpxh2514 [place] [address] Calcium 9.6 mg/dL Normal 8.4-10.2 [facility] Comment on above: Performed By: #### 2 505130 ####KADEN BairdQwnPhbf5624 [place] [address] Chloride 102 mmol/L Normal 98-107 [facility] Comment on above: Performed By: #### 2 658342 ####KADEN BairdAevIods8228 [place] [address] CO2 23.3 mmol/L Low 24.0-30.0 [facility] Comment on above: Performed By: #### 2 351870 ####KADEN SyuHkpu5316 [place] [address] Glucose mass conc 93 mg/dL Normal 70-99 [facility] Comment on above: Performed By: #### 2 599807 ####KADEN QmcCelj3200 [place] [address] Potassium molar conc 3.5 mmol/L Normal 3.5-5.1 [facility] Comment on above: Performed By: #### 2 239637 ####KADEN FqoMhli6999 [place] [address] Sodium 136 mmol/L Normal 136-145 [facility] Comment on above: Performed By: #### 2 736444 ####KADENMorelia BairdDwjGvxp8162 [place] [address] UA Completeon 04-18-2017 UA Blood Negative Normal Negative [facility] Comment on above: Performed By: #### 2 809681 ####KADNE Urinalysis Manual Hqxlqaaepo7610 [place] [address] UA Amorph Chastity 2+ /HPF Abnormal None [facility] Comment on above: Performed By: #### 2 074758 ####KADEN Urinalysis Manual Vonywowwpr0685 [place] [address] UA Ascorbic Acid 40 mg/dL High <=19 [facility] Comment on above: Performed By: #### 2 906190 ####KADEN Urinalysis Manual Yhqpzadski8025 [place] [address] UA Clarity Cloudy Abnormal Clear [facility] Comment on above: Performed By: #### 2 134951 ####KADEN Urinalysis Manual Qjjjmryjja0935 [place] [id number] UA Leuk Est Negative Normal Negative [facility] Comment on above: Performed By: #### 2 121446 ####KADEN Urinalysis Manual Znvantkdcr7033 [place] [address] UA Mucous Trace Abnormal Trace [facility] Comment on above: Performed By: #### 2 131800 ####KADEN Urinalysis Manual Pdcmusdlao7136 [place] [address] UA Nitrite Negative Normal Negative [facility] Comment on above: Performed By: #### 2 544938 ####KADEN Urinalysis Manual [address] [place] [address] UA pH 7.0 Normal 4.6-8.0 [facility] Comment on above: Performed By: #### 2 235984 ####KADEN Urinalysis Manual [address]klfh[address] [place] [address] UA Protein Negative Normal Negative [facility] Comment on above: Performed By: #### 2 193799 ####KADEN Urinalysis Manual [address]qmntix[address] [place] [address] UA Spec Grav 1.018 Normal 1.003-1.03 0 [facility] Comment on above: Performed By: #### 2 840577 ####KADEN Urinalysis Manual Ecjioxnikp[address] [place] [address] UA Squam Epithelial 0-5 Normal 0-5 [facility] Comment on above: Performed By: #### 2 848781 ####KADEN Urinalysis Manual [address]qdyvxcjo[address] [place] [address] UA Urobilinogen Negative Normal [facility] Comment on above: Performed By: #### 2 990447 ####KADEN Urinalysis Manual Xlfx[address]je[address] [place] [address] Urine, color Yellow Normal Yellow [facility] Comment on above: Performed By: #### 2 956487 ####KADEN Urinalysis Manual Frxxktiddl[address] [place] [address] Urine, glucose Negative Normal Negative [facility] Comment on above: Performed By: #### 2 593785 ####KADEN Urinalysis Manual Nfflmwzeww[address] [place] [address] Urine, ketones presence 2+ Abnormal Negative [facility] Comment on above: Performed By: #### 2 435322 ####KADEN Urinalysis Manual Wegrzfyaps[address] [place] [address] Urine, urobilinogen Negative Normal Negative [facility] Comment on above: Performed By: #### 2 883141 ####KADEN Urinalysis Manual Jbovytnevt8230 [place] [address] eGFRon 04-18-2017 eGFR (non-black) mL/min/{1.73_m2} Normal [facility] Comment on above: Order Comment: Order added by Discern Expert. Performed By: #### 1 1682760 ####KADEN RhuUjcd4806 [place] [address] eGFR AA >60 Normal [facility] Comment on above: Order Comment: Order added by Discern Expert. Performed By: #### 1 [id number] ####KADEN RjbBclu7684 [place] [address] Auto Diffon 04-11-2017 Basophils Auto #/vol (Bld) 0.1 E3/mcL Normal 0.0-0.2 [facility] Comment on above: Order Comment: Order Added by Discern Expert. Performed By: #### 2 068551 ####KADEN PrpDjwi8017 [place] [address] Basophils/100 WBC Auto (Bld) 0.7 % Normal 0.0-2.0 [facility] Comment on above: Order Comment: Order Added by Discern Expert. Performed By: #### 2 806351 ####KADEN EsuLkdt4003 [place] [address] Eos Absolute 0.0 E3/mcL Normal 0.0-0.7 [facility] Comment on above: Order Comment: Order Added by Discern Expert. Performed By: #### 2 478769 ####KADEN YsbIlcp8056 [place] [address] Eosinophils/100 leukocytes 0.1 % Normal 0.0-11.0 [facility] Comment on above: Order Comment: Order Added by Discern Expert. Performed By: #### 2 157961 ####KADENMorelia BairdFujPktu1210 [place] [address] Lymphocytes 1.5 E3/mcL Normal 1.2-3.4 [facility] Comment on above: Order Comment: Order Added by Discern Expert. Performed By: #### 2 516500 ####KADENMorelia BairdVyqFsne9476 [place] [address] Lymphocytes/100 leukocytes 17.2 % Low 20.0-55.0 [facility] Comment on above: Order Comment: Order Added by Discern Expert. Performed By: #### 2 388494 ####KADEN Luceroo1025 [place] [address] Nelson Absolute 0.6 E3/mcL Normal 0.0-0.7 [facility] Comment on above: Order Comment: Order Added by Discern Expert. Performed By: #### 2 249398 ####KADEN Luceroo1025 [place] [address] Monocytes/100 leukocytes 6.6 % Normal 0.0-10.0 [facility] Comment on above: Order Comment: Order Added by Discern Expert. Performed By: #### 2 759362 ####KADEN Luceroo1025 [place] [address] Neutro Absolute 6.7 E3/mcL High 1.4-6.5 [facility] Comment on above: Order Comment: Order Added by Discern Expert. Performed By: #### 2 976470 ####KADEN Luceroo1025 [place] [address] Neutro Auto 75.4 % High 37.0-75.0 [facility] Comment on above: Order Comment: Order Added by Discern Expert. Performed By: #### 2 513511 ####KADEN BairdNtnJmkd4510 [place] [address] BMPon 04-11-2017 BUN/Creatinine Ratio 12.9 ratio Normal 5.4-30.0 [facility] Comment on above: Performed By: #### 2 361369 ####KDAEN BairdZsmFuef9305 [place] [address] Creatinine 0.7 mg/dL Normal 0.6-1.3 [facility] Comment on above: Performed By: #### 2 143306 ####KADEN BairdBhsAxpj1891 [place] [address] Urea nitrogen 9 mg/dL Normal 7-18 [facility] Comment on above: Performed By: #### 2 065044 ####KADEN BairdQmjLmzt5734 [place] [address] Calcium 9.5 mg/dL Normal 8.4-10.2 [facility] Comment on above: Performed By: #### 2 461062 ####KADEN RcoWbsx8578 [place] [address] Chloride 105 mmol/L Normal 98-107 [facility] Comment on above: Performed By: #### 2 442327 ####KADEN EzmSszf4475 [place] [address] CO2 22.5 mmol/L Low 24.0-30.0 [facility] Comment on above: Performed By: #### 2 117906 ####KADEN MceEzub9165 [place] [address] Glucose mass conc 92 mg/dL Normal 70-99 [facility] Comment on above: Performed By: #### 2 079318 ####KADEN RaoWvkk9321 [place] [address] Potassium molar conc 3.6 mmol/L Normal 3.5-5.1 [facility] Comment on above: Performed By: #### 2 691368 ####KADEN EccTexo4847 [place] [address] Sodium 137 mmol/L Normal 136-145 [facility] Comment on above: Performed By: #### 2 518625 ####KADEN IjuZair9714 [place] [address] BhCG Quanton 04-11-2017 Beta hCG Qnt 8564.0 mIU/m Normal [facility] Comment on above: Result Comment: FEMA LE (NON-) & MALE <3 BORDERLINE 3 - 5 SUGGEST REPEAT TESTING FEMALE () 1 D - 1 WK 5 - 50 1 - 2 WK 50 - 500 2 - 3 WK 100 - 5000 3 - 4 WK 500 - 81179 4 - 5 WK 1000 - 15903 5 - 6 WK 04456 - 861572 6 - 8 WK 89528 - 151826 2 - 3 [place] [address] - 083319 Performed By: #### 2 138423 ####KADEN YiiOlkg1471 [place] [address] CBC w/ Auto Diffon 7 Erythrocyte distribution width Auto Ratio (RBC) 13.9 % Normal 11.5-14.5 [facility] Comment on above: Performed By: #### 2 514815 ####KADEN BairdCdoSkfx6253 [place] [address] Erythrocytes (RBC) 4.63 E6/mcL Normal 3.90-5.40 [facility] Comment on above: Performed By: #### 2 381897 ####KADEN Luceroo1025 [place] [address] Hematocrit (HCT) 38.2 % Normal 36.0-48.0 [facility] Comment on above: Performed By: #### 2 532306 ####KADEN BairdQjeGngh5004 [place] [address] Hemoglobin mass conc (Bld) 12.6 g/dL Normal 12.0-16.0 [facility] Comment on above: Performed By: #### 2 036565 ####KADEN Luceroo1025 [place] [address] MCH 27.2 pg Normal 27.0-31.0 [facility] Comment on above: Performed By: #### 2 597306 ####KADEN BairdKaxEjph0614 [place] [address] MCHC mass conc (RBC) 33.0 g/dL Normal 33.0-37.0 [facility] Comment on above: Performed By: #### 2 062708 ####KADEN BairdGzvSgxi1456 [place] [address] MCV 82.6 fL Normal 78.0-100.0 [facility] Comment on above: Performed By: #### 2 223119 ####KADEN BairdEuwHqua7867 [place] [address] Platelet mean volume (PMV) 8.0 fL Normal 7.4-11.0 [facility] Comment on above: Performed By: #### 2 117922 ####KADEN BairdYqyFncy3579 [place] [address] Platelets 233 E3/mcL Normal 130-400 [facility] Comment on above: Performed By: #### 2 916552 ####KADEN BairdBudSeyk9162 [place] [address] WBC (Leukocytes) 9.0 E3/mcL Normal 3.6-11.0 [facility] Comment on above: Performed By: #### 2 720972 ####KADEN GykKzlx7864 [place] [address] UA Completeon 04-11-2017 UA Blood Negative Normal Negative [facility] Comment on above: Result Comment: High concentration of Ascorbic Acid present in urine. This may cause False Negative Occ Blood. Review microscopic results and patient's clinical symptoms. Performed By: #### 8 [id number] ####KADEN Urinalysis Automated Eocjrmtdph4203 [place] [address] UA Amorph Chastity 1+ /HPF Abnormal None [facility] Comment on above: Performed By: #### 8 0006848 ####KADEN Urinalysis Automated Vupldtqkfw1508 [place] [address] UA Ascorbic Acid 40 mg/dL High <=19 [facility] Comment on above: Performed By: #### 8 1636144 ####KADEN Urinalysis Automated [address] [place] [address] UA Bacteria Trace Abnormal None [facility] Comment on above: Performed By: #### 8 9306903 ####KADEN Urinalysis Automated Vaugebgnmt7903 [place] [address] UA Clarity Cloudy Abnormal Clear [facility] Comment on above: Performed By: #### 8 8463584 ####KADEN Urinalysis Automated Vrxfpjitcm8163 [place] [address] UA Leuk Est Negative Normal Negative [facility] Comment on above: Performed By: #### 8 7024675 ####KADEN Urinalysis Automated Oajgttpdbp0156 [place] [address] UA Mucous Few Abnormal Trace [facility] Comment on above: Performed By: #### 8 9883870 ####KADEN Urinalysis Automated Zfigvuzhuq1458 [place] [address] UA Nitrite Negative Normal Negative [facility] Comment on above: Performed By: #### 8 [id number] ####KADEN Urinalysis Automated Mpgtguufdy7835 [place] [address] UA pH 7.0 Normal 4.6-8.0 [facility] Comment on above: Performed By: #### 8 [id number] ####KADEN Urinalysis Automated Ywwkliehjb0775 [place] [address] UA Protein Negative Normal Negative [facility] Comment on above: Performed By: #### 8 6468555 ####KADEN Urinalysis Automated Bymmwojzma2015 [place] [address] UA Spec Grav 1.025 Normal 1.003-1.03 0 [facility] Comment on above: Performed By: #### 8 [id number] ####KAEDN Urinalysis Automated Pnkpplgqwl1533 [place] [address] UA Squam Epithelial 5-10 Abnormal 0-5 [facility] Comment on above: Performed By: #### 8 [id number] ####KADEN Urinalysis Automated Fobmcajtdf046046 [place] [address] UA Urobilinogen 2.0 mg/dL Abnormal [facility] Comment on above: Performed By: #### 8 [id number] ####KADEN Urinalysis Automated [id number] [place] [address] Urine, color Yellow Normal Yellow [facility] Comment on above: Performed By: #### 8 [id number] ####KADEN Urinalysis Automated [id number] [place] [address] Urine, erythrocytes 0-3 Normal 0-3 [facility] Comment on above: Performed By: #### 8 [id number] ####KADEN Urinalysis Automated [address]sw2148 [place] [address] Urine, glucose Negative Normal Negative [facility] Comment on above: Performed By: #### 8 [id number] ####KADEN Urinalysis Automated [address] [place] [address] Urine, ketones presence 2+ Abnormal Negative [facility] Comment on above: Performed By: #### 8 [id number] ####KADEN Urinalysis Automated [address]ys5193 [place] [address] Urine, urobilinogen Negative Normal Negative [facility] Comment on above: Performed By: #### 8 [id number] ####KADEN Urinalysis Automated [address]tdw1127 [place] [address] eGFRon 04-11-2017 eGFR (non-black) mL/min/{1.73_m2} Normal [facility] Comment on above: Order Comment: Order added by Discern Expert. Performed By: #### 1 [id number] ####KADEN [address]4386 [place] [address] eGFR AA >60 Normal [facility] Comment on above: Order Comment: Order added by Discern Expert. Performed By: #### 1 [id number] ####KADEN [address]Xmmq6106 [place] [address] U BhCG Qlton 03-20-2017 HCG.beta subunit Qn Negative Normal Neg [facility] Comment on above: Performed By: #### 2 [id number] ####KADEN Urinalysis Manual [address] [place] [address] UA Completeon 03-20-2017 UA Blood Negative Normal Negative [facility] Comment on above: Performed By: #### 8 [id number] ####KADEN Urinalysis Automated [address]mtx[address]ebz1719 [place] [address] UA Amorph Chastity 1+ /HPF Abnormal None [facility] Comment on above: Performed By: #### 8 [id number] ####KADEN Urinalysis Automated [address]upqnrm5687 [place] [address] UA Bacteria 2+ /HPF Abnormal None [facility] Comment on above: Performed By: #### 8 [id number] ####KADEN Urinalysis Automated [address] [place] [address] UA Clarity Cloudy Abnormal Clear [facility] Comment on above: Performed By: #### 8 [id number] ####KADEN Urinalysis Automated [address] [place] [address] UA Leuk Est 1+ Abnormal Negative [facility] Comment on above: Performed By: #### 8 [id number] ####KADEN Urinalysis Automated [address] [place] [address] UA Mucous Occasional Abnormal Trace [facility] Comment on above: Performed By: #### 8 [id number] ####KADEN Urinalysis Automated [address]vstocwyf9476 [place] [address] UA Nitrite Negative Normal Negative [facility] Comment on above: Performed By: #### 8 [id number] ####KADEN Urinalysis Automated [address]1467 [place] [address] UA pH 6.0 Normal 4.6-8.0 [facility] Comment on above: Performed By: #### 8 [id number] ####KADEN Urinalysis Automated [address]f35[address] [place] [address] UA Protein 1+ Abnormal Negative [facility] Comment on above: Performed By: #### 8 [id number] ####KADEN Urinalysis Automated [address]l9508 [place] [address] UA Spec Grav 1.019 Normal 1.003-1.03 0 [facility] Comment on above: Performed By: #### 8 [id number] ####KADEN Urinalysis Automated [address] [place] [address] UA Squam Epithelial 5-10 Abnormal 0-5 [facility] Comment on above: Performed By: #### 8 [id number] ####KADEN Urinalysis Automated [address] [place] [address] UA Urobilinogen Negative Normal [facility] Comment on above: Performed By: #### 8 [id number] ####KADEN Urinalysis Automated Bjvhbrtlqe9724 [place] [address] UA WBC >50 Abnormal 0-5 [facility] Comment on above: Performed By: #### 8 [id number] ####KADEN Urinalysis Automated [address]4251 [place] [address] Urine, color Yellow Normal Yellow [facility] Comment on above: Performed By: #### 8 [id number] ####KADEN Urinalysis Automated [address]zb4300 [place] [address] Urine, erythrocytes 5-10 Abnormal 0-3 [facility] Comment on above: Performed By: #### 8 [id number] ####KADEN Urinalysis Automated [address] [place] [address] Urine, glucose Negative Normal Negative [facility] Comment on above: Performed By: #### 8 [id number] ####KADEN Urinalysis Automated [address] [place] [id number] Urine, ketones presence Negative Normal Negative [facility] Comment on above: Performed By: #### 8 [id number] ####KADEN Urinalysis Automated [address]zmurqfwko2642 [place] [address] Urine, urobilinogen Negative Normal Negative [facility] Comment on above: Performed By: #### 8 [id number] ####KADEN Urinalysis Automated [address]4784 [place] [address] Vital Signs Date Time Vital Sign Value Performing Clinician Facility 06-18-2024 10:37-0500 Body mass index (BMI) [Ratio] 25.02 kg/m2 [facility] Nurse [facility] 06-18-2024 10:37-0500 Body weight 70.31 kg [facility] Nurse [facility] 06-18-2024 10:37-0500 Diastolic blood pressure 72 mm[Hg] [facility] Nurse [facility] 06-18-2024 10:37-0500 Systolic blood pressure 118 mm[Hg] [facility] Nurse [facility] 07-18-2023 10:30-0500 Body mass index (BMI) [Ratio] 26.7 kg/m2 Cuong Diana DO Work Phone: [facility] 07-18-2023 10:30-0500 Body weight 75.03 kg Cuong Diana DO Work Phone: [facility] 07-18-2023 10:30-0500 Diastolic blood pressure 68 mm[Hg] Cuong Diana DO Work Phone: [facility] 07-18-2023 10:30-0500 Systolic blood pressure 106 mm[Hg] Cuong Diana DO Work Phone: [facility] 02-11-2023 14:130400 Body height 165.1 cm SADAF Wyatt Work Phone: [facility] 02-11-2023 14:13040 Body temperature 97.9 [degF] SADAF Wyatt Work Phone: [facility] 02-11-2023 14:130400 Body weight 70.55 kg SADAF Wyatt Work Phone: [facility] 02-11-2023 14:13-0400 Diastolic blood pressure 80 mm[Hg] PA-Ventura Wyatt Work Phone: [facility] 02-11-2023 14:13-0400 Heart rate 60 /min PA-Ventura Wyatt Work Phone: [facility] 02-11-2023 14:13-0400 Respiratory rate 15 /min FERMIN-Ventura Wyatt Work Phone: [facility] 02-11-2023 14:13-0400 SaO2% (BldA) [Mass fraction] 99 % PA-C Andie Wyatt Work Phone: [facility] 02-11-2023 14:13-0400 Systolic blood pressure 134 mm[Hg] PA-Ventura Wyatt Work Phone: [facility] 02-08-2023 12:36-0400 Body height 165.1 cm SADAF Wyatt Work Phone: [facility] 02-08-2023 12:36-0400 Body temperature 98.2 [degF] SADAF Wyatt Work Phone: [facility] 02-08-2023 12:36-0400 Body weight 72.57 kg SADAF Wyatt Work Phone: [facility] 02-08-2023 12:36-0400 Diastolic blood pressure 84 mm[Hg] FERMIN-Ventura Wyatt Work Phone: [facility] 02-08-2023 12:36-0400 Heart rate 74 /min SADAF Wyatt Work Phone: [facility] 02-08-2023 12:36-0400 Respiratory rate 15 /min SADAF Wyatt Work Phone: [facility] 02-08-2023 12:36-0400 SaO2% (BldA) [Mass fraction] 98 % SADAF Wyatt Work Phone: [facility] 02-08-2023 12:36-0400 Systolic blood pressure 150 mm[Hg] PA-Ventura Wyatt Work Phone: [facility] 12-19-2022 14:43-0400 Body temperature 96.9 [degF] FERMIN-C Andie Wyatt Work Phone: [facility] 12-19-2022 14:43-0400 Diastolic blood pressure 74 mm[Hg] PA-C Andie Wyatt Work Phone: [facility] 12-19-2022 14:43-0400 Heart rate 59 /min PA-C Andie Wyatt Work Phone: [facility] 12-19-2022 14:43-0400 Respiratory rate 18 /min PA-C Andie Wyatt Work Phone: [facility] 12-19-2022 14:43-0400 SaO2% (BldA) [Mass fraction] 100 % PA-C Andie Wyatt Work Phone: [facility] 12-19-2022 14:43-0400 Systolic blood pressure 115 mm[Hg] PA-C Andie Wyatt Work Phone: [facility] 12-19-2022 14:00-0400 Diastolic blood pressure 89 mm[Hg] PA-C Andie Wyatt Work Phone: [facility] 12-19-2022 14:00-0400 Heart rate 79 /min FERMIN-Ventura Wyatt Work Phone: [facility] 12-19-2022 14:00-0400 Respiratory rate 16 /min PA-C Andie Wyatt Work Phone: [facility] 12-19-2022 14:00-0400 SaO2% (BldA) [Mass fraction] 99 % FERMIN-C Andie Wyatt Work Phone: [facility] 12-19-2022 14:00-0400 Systolic blood pressure 150 mm[Hg] PA-C Andie Wyatt Work Phone: [facility] 12-19-2022 03:30-0400 Body height 165.1 cm PA-C Andie Wyatt Work Phone: [facility] 12-19-2022 03:30-0400 Body weight 72.2 kg PA-C Andie Wyatt Work Phone: [facility] 12-18-2022 23:07-0400 Body height 165.1 cm PA-C Andie Wyatt Work Phone: [facility] 12-18-2022 23:07-0400 Body weight 74.2 kg PA-C Andie Wyatt Work Phone: [facility] 12-18-2022 23:05-0400 Body temperature 98.5 [degF] PA-C Andie Wyatt Work Phone: [facility] 08-20-2022 14:31-0500 Body height 165.1 cm PA-C Andie Wyatt Work Phone: [facility] 08-20-2022 14:31-0500 Body temperature 98.9 [degF] PA-C Andie Wyatt Work Phone: [facility] 08-20-2022 14:31-0500 Body weight 71.55 kg PA-C Andie Wyatt Work Phone: [facility] 08-20-2022 14:31-0500 Diastolic blood pressure 87 mm[Hg] PA-C Andie Wyatt Work Phone: [facility] 08-20-2022 14:31-0500 Heart rate 97 /min PA-C Andie Wyatt Work Phone: [facility] 08-20-2022 14:31-0500 Respiratory rate 18 /min PA-C Andie Wyatt Work Phone: [facility] 08-20-2022 14:31-0500 SaO2% (BldA) [Mass fraction] 98 % PA-C Andie Wyatt Work Phone: [facility] 08-20-2022 14:31-0500 Systolic blood pressure 135 mm[Hg] PA-C Andie Wyatt Work Phone: [facility] 02-08-2022 03:06-0400 Body weight 68.[address] CUONG ORTIZ . [facility] Comment on above: Performed By: #### AFPMAT #### [facility] [address] [place] [address] Dr. Juan Antonio Ibarra 02-05-2022 18:24-0400 Body height 165.1 cm SADAF Wytat Work Phone: [facility] 02-05-2022 18:24-0400 Body temperature 98.3 [degF] SADAF Wyatt Work Phone: [facility] 02-05-2022 18:24-0400 Body weight 67.9 kg SADAF Wyatt [facility] 02-05-2022 18:24-0400 SaO2% (BldA) [Mass fraction] 99 % SADAF Wyatt Work Phone: [facility] 02-05-2022 18:24-0400 Systolic blood pressure 125 mm[Hg] SADAF Wyatt Work Phone: [facility] Encounters Encounter Date Encounter Type Care Provider Facility Start: 07-20-2024 End: 07-20-2024 Bamboo flowsheet Cuong Diana DO Work Phone: [facility] Start: 07-20-2024 End: 07-20-2024 Bamboo flowsheet Cuong Diana DO Work Phone: [facility] Start: 06-22-2024 End: 06-22-2024 Clinisync Result Encounter Cuong Diana DO Work Phone: [facility] Unsolicited Start: 06-22-2024 End: 06-22-2024 Clinisync Result Encounter Cuong Diana DO Work Phone: [facility] Unsolicited Start: 06-22-2024 End: 06-22-2024 ambulatory Andie Wyatt PA-C Work Phone: [facility] Work Phone: Start: 06-22-2024 End: 06-22-2024 Departed Referred Andie Wyatt PA-C Work Phone: [facility] Start: 06-18-2024 End: 06-18-2024 ambulatory [facility] Diana Nurse [facility] Comment on above: GA: 12w2d Start: 12-26-2023 End: 12-26-2023 ambulatory AMAURI RODRIGUEZ [facility] Start: 12-24-2023 End: 12-24-2023 ambulatory CUONG DIANA Not Available Start: 11-04-2023 End: 11-04-2023 ambulatory CUONG DIANA Not Available Start: 10-28-2023 End: 10-28-2023 ambulatory CUONG DIANA Not Available Start: 10-14-2023 End: 10-14-2023 ambulatory CUONG DIANA Not Available Start: 09-30-2023 End: 09-30-2023 ambulatory CUONG DIANA Not Available Start: 09-12-2023 End: 09-12-2023 ambulatory CUONG DIANA Not Available Start: 08-15-2023 End: 08-15-2023 ambulatory ANDIE WYATT [facility] Start: 08-15-2023 End: 08-15-2023 ambulatory CUONG DIANA Not Available Start: 07-22-2023 Documentation procedure Lucio Renee LC Work Phone: [facility] Comment on above: Outgoing Ca ll Start: 07-18-2023 Clinisync Result Encounter Cuong Diana DO Work Phone: [facility] Unsolicited Start: 07-18-2023 Clinisync Result Encounter Cuong Eppso DO Work Phone: [facility] Unsolicited Start: 07-18-2023 End: 07-18-2023 Office outpatient visit 15 minutes Cuong Eppso DO Work Phone: [facility] Comment on above: Second trimester pre gnancy Start: 07-18-2023 End: 07-18-2023 ambulatory ANDIE WYATT [facility] Start: 07-03-2023 End: 07-03-2023 Telemedicine consultation with patient Rosaura Renee [facility] Work Phone: [facility]- [facility] at [facility] Comment on above: Family history of ge netic disorder (Primary Dx); Genetic testing; Fetus with trisomy 13, single gestation Start: 07-03-2023 End: 07-03-2023 ambulatory CUONG ORTIZ [facility] Start: 06-20-2023 End: 06-20-2023 ambulatory ABRB KRAMER Not Available Start: 02-11-2023 End: 02-11-2023 Emergency department patient visit SADAF Wyatt Work Phone: [facility] Work Phone: Start: 02-08-2023 End: 02-08-2023 Emergency department patient visit SADAF Wyatt Work Phone: [facility] Work Phone: Start: 12-19-2022 End: 12-19-2022 Evaluation and management of inpatient SADAF Wyatt Work Phone: [facility] Work Phone: Start: 12-19-2022 End: 12-19-2022 observation encounter SADAF Wyatt Work Phone: [facility] Work Phone: Start: 10-24-2022 End: 10-24-[address] CUONG ORTIZ . Facility:[facility] Start: 10-23-2022 Registered Recurring SADAF Wyatt Work Phone: [facility] Start: 08-20-2022 End: 08-20-2022 Emergency department patient visit SADAF Wyatt Work Phone: [facility] Work Phone: Start: 07-23-[address] CUONG ORTIZ . Facili ty:[facility] Start: 07-09-2022 End: 07-09-[address] CUONG ORTIZ . Facility:[facility] Start: 07-05-2022 End: 07-07-2022 Evaluation and management of inpatient DR CUONG ORTIZ . Facility:[facility] Start: 07-02-2022 End: 07-02-2022 [facility] Facility:[facility] Start: 06-28-2022 End: 06-28-[address] CUONG ORTIZ . Facility:[facility] Start: 06-21-2022 End: 06-21-2022 [facility] Facility:[facility] Start: 06-16-2022 End: 06-16-2022 ambulatory [...] ORTIZ . Facility:[facility] Start: 05-24-2022 End: 05-24-2022 [facility] Facility:[facility] Start: 04-04-2022 End: 04-05-2022 ambulatory [...] department patient visit SADAF Wyatt Work Phone: [facility] Start: 12-26-2021 End: 12-27-[address] CUONG ORTIZ . Facility:[facility] Start: 12-07-2021 End: 12-08-[address] CUONG ORTIZ . Facility: Start: 12-27-2017 End: 12-27-2017 Patient encounter Christian Ivan Facility:[facility] Start: 12-12-2017 End: 12-12-2017 Emergency department patient visit Luke Barbosa Facility:[facility] Start: 12-12-2017 Patient encounter Facil [id number] Start: 12-07-2017 Evaluation and manag ement of inpatient CLARA JAMA Facility:[facility] Start: 12-03-2017 Evaluation and manag ement of inpatient CLARA JAMA Facility:[facility] Start: 12-03-2017 Patient encounter procedure CLARA JAMA Facility:[facility] Start: 12-02-2017 Evaluation and manag ement of inpatient CLARA JAMA Facility:[facility] Start: 11-30-2017 End: 12-02-2017 Evaluation and management of inpatient CLARA TERESA JAMA [facility] Start: 11-30-2017 End: 11-30-2017 Patient encounter Slaomon Nguyen Facility:[facility] Start: 11-30-2017 Patient encounter Facil [id number] Start: 11-28-2017 End: 11-28-2017 Patient encounter CLARA DERASE [facility] Start: 11-21-2017 End: 11-21-2017 Patient encounter OKSANA MASON [facility] Start: 11-21-2017 End: 11-21-2017 Patient encounter Juanita Cole Facility:[facility] Start: 11-20-2017 Patient encounter Facil [id number] Start: 11-17-2017 End: 11-17-2017 Patient encounter Christian Ivan Facility:[facility] Start: 11-16-2017 Patient encounter Facil [id number] Start: 11-07-2017 End: 11-07-2017 Patient encounter OKSANA AMADO [facility] Start: 10-31-2017 End: 10-31-2017 Patient encounter CLARA JAMA [facility] Start: 10-24-2017 End: 10-24-2017 Patient encounter MARCO ANTONIO ANTONIO [facility] Start: 10-16-2017 End: 10-16-2017 Patient encounter Christian Ivan Facility:[facility] Start: 10-08-2017 End: 10-08-2017 Patient encounter [facility] Start: 10-08-2017 End: 10-08-2017 Patient encounter OKSANA AMADO [facility] Start: 10-01-2017 End: 10-02-2017 Patient encounter Christian Ivan Facility:[facility] Start: 09-10-2017 End: 09-11-2017 Patient encounter LUIS DANIEL PITTMANO [facility] Start: 09-10-2017 End: 09-10-2017 Patient encounter KRIS HOYT [facility] Start: 09-10-2017 End: 09-10-2017 Patient encounter CLARA JAMA [facility] Start: 09-03-2017 End: 09-04-2017 Patient encounter Christian Ivan Facility:[facility] Start: 08-28-2017 Ambulatory NAGA [facility] Start: 08-13-2017 End: 08-14-2017 Patient encounter CLARA JAMA [facility] Start: 08-13-2017 End: 08-13-2017 Patient encounter MEREDITH BENITO [facility] Start: 08-13-2017 End: 08-13-2017 [facility] Start: 08-10-2017 End: 08-10-2017 Emergency department patient visit Luke Barbosa Facility:[facility] Start: 08-06-2017 End: 08-07-2017 Patient encounter Christian Ivan Facility:[facility] Start: 07-23-2017 End: 07-24-2017 Patient encounter Christianshoaib Ivan Facility:[facility] Start: 07-18-2017 End: 07-18-2017 Patient encounter CLARA WOLFE [facility] Start: 07-09-2017 End: 07-10-2017 Patient encounter Christian Ivan Facility:[facility] Start: 06-25-2017 End: 06-26-2017 Patient encounter Christian Morelia Ivan Facility:[facility] Start: 06-12-2017 End: 06-12-2017 Patient encounter Christian Ivan Facility:[facility] Start: 05-14-2017 End: 05-15-2017 Patient encounter Christian Hennessyir Facility:[facility] Start: 05-01-2017 End: 05-02-2017 Patient encounter Salomon Nguyen Facility:[facility] Start: 04-23-2017 End: 04-23-2017 Patient encounter Yasmin Evans Facility:[facility] Start: 04-22-2017 End: 04-22-2017 Emergency department patient visit Luke Barbosa Facility:[facility] Start: 04-18-2017 End: 04-18-2017 Emergency department patient visit Luke Barbosa Facility:[facility] Start: 04-16-2017 End: 04-17-2017 Patient encounter Gamaliel Savage Facility:[facility] Start: 04-16-2017 End: 04-17-2017 Patient encounter Christian Ivan Facility:[facility] Start: 04-11-2017 End: 04-11-2017 Emergency department patient visit Nodr No Doctor Assigned Facility:[facility] Start: 03-26-2017 End: 03-27-2017 Patient encounter Luke Barbosa Facility:[facility] Start: 03-20-2017 End: 03-20-2017 Emergency department patient visit Nodr No Doctor Assigned Facility:[facility] Start: 03-01-2017 End: 03-01-2017 Emergency department patient visit Nodr No Doctor Assigned Facility:[facility] Procedures Date Procedure Procedure Detail Performing Clinician Start: 06-22-2024 ALL CBC WITH AUTO DIFF Cuong Diana DO Work Phone: Start: 06-18-2024 End: 06-18-2024 Urnls dip stick/tablet rgnt non-auto w/o micrscp Cuong Diana DO Work Phone: Start: 07-18-2023 AFP, SERUM, OPEN SPI NA BIFIDA Cuong Diana DO Work Phone: Start: 07-18-2023 Urnls dip stick/tabl et rgnt non-auto w/o micrscp Cuong Diana DO Work Phone: Start: 12-19-2022 Urine culture SADAF Wyatt Work Phone: Start: 12-19-2022 CT of head without contrast SADAF Wyatt Work Phone: Start: 12-19-2022 X-ray of left foot SADAF [...] both knees TARIQ Wyatt Work Phone: Start: 10-24-2022 Microscopic observat ion [Identifier] in Cervix by Cyto stain [facility] Start: 07-06-2022 Transfusion of Nonautologous Red Blood Cells into Peripheral Vein, Percutaneous Approach DR CUONG ORTIZ . Start: 07-05-2022 Delivery of Products of Conception, External Approach DR CUONG ORTIZ . Start: 07-05-2022 Introduction of Othe r Hormone into Peripheral Vein, Percutaneous Approach DR CUONG ORTIZ . Start: 05-02-2022 Adult depression scr eening assessment Rosaura Renee [facility] Work Phone: Start: 11-30-2017 Antibody screen SHAINA JAMA Comment on above: Performed By: #### T &S #### [place] [address] Aerobic microbial culture FERMIN Wyatt Work Phone: Investigation of transfusion reaction SADAF Wyatt Work Phone: Plan of Treatment Date Care Activity Detail Author Start: 12-18-2032 DTaP,Tdap and Td Vaccines (10 - Td or Tdap) DTaP,Tdap and Td Vaccines (10 - Td or Tdap) [facility] Start: 10-25-2027 Screening for malign ant neoplasm of cervix [facility] Start: 07-20-2024 End: 07-20-2024 Patient encounter procedure 07/20/2024 10:40 AM EST Routine [facility] [address] [place] [id number] Cuong Ortiz DO [address] [place] [address] [facility] Start: 06-22-2024 Bacteria identified in Urine by Culture Urine Culture [facility] Start: 06-22-2024 Urine culture [facility] Start: 06-18-2024 End: 06-18-2025 ABO/Rh ABO/Rh Lab Routine Missed menses , unspecified gestational age Expected: 06/18/2024 (Approximate), Expires: 06/18/2025 [facility] Comment on above: Expected: 06/18/2024 (Approximate), Expires: 06/18/2025 Start: 06-18-2024 End: 06-18-2025 Blood type and Indirect antibody screen panel - Blood Type and screen Lab Routine Missed menses , unspecified gestational age Expected: 06/18/2024 (Approximate), Expires: 06/18/2025 [facility] Work Phone: Comment on above: Expected: 06/18/2024 (Approximate), Expires: 06/18/2025 Start: 06-18-2024 End: 06-18-2025 Drugs of abuse panel - Urine by Screen method Rapid drug screen, urine Lab Routine , unspecified gestational age Encounter for supervision of normal first in first trimester Expected: 06/18/2024 (Approximate), Expires: 06/18/2025 [facility] Comment on above: Expected: 06/18/2024 (Approximate), Expires: 06/18/2025 Start: 02-16-2024 Influenza vaccination Influenza Vacc ine (#1) [facility] Start: 09-11-2023 Adult BMI Screening Adult BMI Screen ing [facility] Start: 09-11-2023 Tobacco Screening Tobacco Screening [facility] Start: 08-15-2023 End: 08-15-2023 Patient encounter procedure 08/15/2023 2:15 PM EST Appointment [facility] [address] [address] [facility] Start: 08-15-2023 End: 08-15-2023 Patient encounter procedure 08/15/2023 9:10 AM EST Routine [facility] [address] [place] [id number] Cuong Ortiz, DO [address] [place] [address] [facility] Start: 07-18-2023 End: 07-18-2023 Patient encounter procedure 07/18/2023 8:00 AM EST Appointment [facility] [address] [phone] [facility] Start: 05-02-2023 Depression Screening Depression Scre ening [facility] Start: 02-15-2023 COVID-19 Vaccine () COVID-19 Vaccine () [facility] Start: 02-15-2023 Influenza vaccination [employer] [facility] Start: 12-19-2022 Bacteria identified in Urine by Culture Urine Culture [facility] Start: 12-19-2022 [facility] Start: 12-19-2022 CT of head without contrast CT head/brain wo con [facility] Start: 12-19-2022 CT Unspecified body region WO contrast [facility] Start: 12-19-2022 Consultation [facility] Start: 12-19-2022 Hospital admission [facility] Start: 12-19-2022 X-ray of left foot XR foot LT 2V [facility] Start: 12-19-2022 XR Foot - left 2 Views [facility] Start: 12-18-2022 Computed tomography of thoracic spine without contrast CT thoracic spine wo [facility] Start: 12-18-2022 CT cervical spine without contrast CT cervical spine wo con [facility] Start: 12-18-2022 CT Cervical spine WO contrast [facility] Start: 12-18-2022 CT Lumbar spine WO contrast [facility] Start: 12-18-2022 CT of head without contrast CT head/brain wo con [facility] Start: 12-18-2022 CT of lumbar spine without contrast CT lumbar spine wo [facility] Start: 12-18-2022 CT Thoracic spine WO contrast [facility] Start: 12-18-2022 CT Unspecified body region WO contrast [facility] Start: 12-18-2022 Pelvis X-ray XR pelvis 1-2V [facility] Start: 12-18-2022 Plain chest X-ray XR chest 1V port[place] le [facility] Start: 12-18-2022 X-ray of both knees XR knee BI 2V [facility] Start: 12-18-2022 XR Chest Single view [facility] Start: 12-18-2022 XR Knee - bilateral 2 Views [facility] Start: 12-18-2022 XR Pelvis 1 or 2 Views [facility] Start: 2022 Screening for malign ant neoplasm of cervix [facility] Start: 02-05-2022 [facility] Work Phone: Start: 2013 Screening for malign ant neoplasm of cervix Pap Smear [facility] Start: 2010 Adult BMI Follow Up Plan Adult BMI Follow Up Plan [facility] Anaerobic microbial culture Anaerobic Culture [facility] Bacteria identified in Urine by Culture [facility] Bacteria identified in Urine by Culture Urine culture Microbiology Routine Missed menses Ordered: 06/18/2024 [facility] Comment on above: Ordered: 06/18/2024 CBC W Auto Different ial panel - Blood CBC and differential Lab Routine Missed menses , unspecified gestational age Ordered: 06/18/2024 [facility] Comment on above: Ordered: 06/18/2024 Hemoglobin A1c/Hemoglobin.total in Blood Hemoglobin A1c Lab Routine Missed menses , unspecified gestational age Ordered: 06/18/2024 [facility] Comment on above: Ordered: 06/18/2024 Hepatitis B virus surface Ag [Presence] in Serum or Plasma by Immunoassay Hepatitis B surface antigen Lab Routine Missed menses , unspecified gestational age Ordered: 06/18/2024 [facility] Comment on above: Ordered: 06/18/2024 Hepatitis C virus Ab [Presence] in Serum or Plasma by Immunoassay Hepatitis C antibody Lab Routine Missed menses , unspecified gestational age Ordered: 06/18/2024 [facility] Comment on above: Ordered: 06/18/2024 HIV-1/HIV-2 antigen/antibody combination immunoassay HIV-1 and HIV-2 antibodies Lab Routine Missed menses , unspecified gestational age Ordered: 06/18/2024 [facility] Comment on above: Ordered: 06/18/2024 Patient Education [facility] Work Phone: Patient referral [facility] Work Phone: Reagin Ab [Presence] in Serum by RPR RPR Lab Routine Missed menses , unspecified gestational age Ordered: 06/18/2024 [facility] Comment on above: Ordered: 06/18/2024 Rubella antibody, IgG Rubella an tibody, IgG Lab Routine Missed menses , unspecified gestational age Ordered: 06/18/2024 [facility] Comment on above: Ordered: 06/18/2024 Immunizations Immunization Date Immunization Notes Care Provider Britney young 12-18-2022 tetanus toxoid, redu swati diphtheria toxoid, and acellular pertussis vaccine, adsorbed SADAF Wyatt Work Phone: [facility] 05-19-2013 influenza virus vaccine, unspecified formulation Rosaura Renee [facility] Work Phone: [employer] Payers Date Payer Category Payer Self-pay 2017 Medicaid 2017 Unknown 1990 Unknown [id number] 2.16.840.1.434929.3.579.2.278 1990 Unknown [id number] 2.16.840.1.107308.3.579.2.278 1992 Unknown [id number] 2.16.840.1.253792.3.579.2.278 1992 Unknown [id number] 2.16.840.1.562697.3.579.2.278 1992 Unknown [id number] 2.16.840.1.577163.3.579.2.593 1992 Unknown [id number] 2.16.840.1.608258.3.579.2.593 1992 Unknown [id number] 2.16.840.1.747208.3.579.2.593 1992 Unknown [id number] 2.16.840.1.305715.3.579.2.593 1992 Unknown [id number] 2.16.840.1.137294.3.579.2.593 1992 Unknown [id number] 2.16.840.1.938737.3.579.2.593 1992 Unknown [id number] 2.16.840.1.940051.3.579.2.593 1992 Unknown [id number] 2.16.840.1.467564.3.579.2.593 1992 Unknown [id number] 2.16.840.1.802045.3.579.2.593 1992 Unknown [id number] 2.16.840.1.580994.3.579.2.593 1992 Unknown [id number] 2.16.840.1.949409.3.579.2.593 1992 Unknown [id number] 2.16.840.1.568562.3.579.2.593 1992 Unknown [id number] 2.16.840.1.117033.3.579.2.593 1992 Unknown [id number] 2.16.840.1.480718.3.579.2.593 1992 Unknown [id number] 2.16.840.1.831136.3.579.2.593 1992 Unknown [id number] 2.16.840.1.200962.3.579.2.593 1992 Unknown [id number] 2.16.840.1.477479.3.579.2.593 1992 Unknown [id number] 2.16.840.1.761642.3.579.2.593 1992 Unknown [id number] 2.16.840.1.358044.3.579.2.593 1992 Unknown [id number] 2.16.840.1.364276.3.579.2.593 1992 Unknown [id number] 2.16.840.1.745372.3.579.2.593 1992 Unknown [id number] 2.16.840.1.049739.3.579.2.593 1992 Unknown [id number] 2.16.840.1.488429.3.579.2.1286 1992 Unknown [id number] 2.16.840.1.513378.3.579.2.1286 1992 Unknown [id number] 2.16.840.1.611790.3.579.2.1285 1992 Unknown [id number] 2.16.840.1.051711.3.579.2.1285 1992 Unknown [id number] 2.16.840.1.416191.3.579.2.1258 1992 Unknown [id number] 2.16.840.1.869169.3.579.2.1258 1992 Unknown [id number] 2.16.840.1.787625.3.579.2.1258 1992 Unknown [id number] 2.16.840.1.001336.3.579.2.1258 1992 Unknown [id number] 2.16.840.1.236943.3.579.2.1258 1992 Unknown [id number] 2.16.840.1.297158.3.579.2.1258 1992 Unknown [id number] 2.16.840.1.484906.3.579.2.1258 1992 Unknown [id number] 2.16.840.1.563310.3.579.2.1258 1992 Unknown [id number] 2.16.840.1.367775.3.579.2.1258 1992 Unknown [id number] 2.16.840.1.556243.3.579.2.1258 1992 Unknown [id number] 2.16.840.1.709401.3.579.2.9 1957 Medicaid [id number] 1957 Medicaid [id number] Medicaid [id number] Unknown Regular Auto/Liability [id number] Unknown [id number] 2.16.840.1.109520.3.579.2.531 Social History Date Type Detail Facility Start: 02-05-2022 End: 05-09-2023 Tobacco smoking status NHIS Never smoked tobacco (finding) [facility] Start: 1990 Sex Assigned At Female [facility] Start: 12-19-2022 End: 12-19-2022 Tobacco smoking status NHIS Current some day smoker [facility] Start: 02-11-2023 End: 07-30-2023 Tobacco smoking status WAIS Ex-smoker (finding) [facility] History of tobacco use Current smoker [facility] History of tobacco use Tobacco U se Types Packs/Day Years Used Date Smoking Tobacco: Former Vaping/E-cigarettes Smokeless Tobacco: Never [facility] Start: 03-28-2022 Tobacco use and exposure Smokeless tobacco non-user [facility] Start: 06-26-2023 Alcohol intake Current non-drinker of alcohol (finding) [facility] Start: 03-18-2018 End: 09-30-2023 History of Social function [facility] Start: 03-18-2018 End: 09-30-2023 Alcohol Use Disorder Identification Test - Consumption [AUDIT-C] [facility] Frequency of Alcohol Consumption Never [facility] Start: 03-11-2023 [facility] Start: 1990 Sex Assigned At Not on file [facility] Start: 07-18-2023 End: 06-18-2024 Alcohol intake Lifetime non-drinker (finding) [facility] Start: 06-24-2024 Sex Female (finding) [facility] Goals Date Patient Goal Desired Activity /State Personal health goal Functional Status Date Assessment Result Facility 12-19-2022 Functional status Patient at [facility] Work Phone: Mental Status Date Assessment Result Facility 12-19-2022 Cognitive function Cognitive Sta tus Patient at Baseline [facility] Work Phone: Clinical Notes 11-13-2021 to 06-18-2024 Angelica Orourke MA - 06/18/2024 10:00 AM Rosangela Renee, LCGC - 07/22/2023 10:49 AM Piotr Murphy LPN - 07/18/2023 11:20 AM Rosangela Renee, MEREDITH - 07/03/2023 11:00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
[2024-07-22 17:07] LABS: AFP Value 42.2 ng/mL (.); Gest. Age on Collection Date 16.9 weeks (.); Insulin Dep Diabetes No (.); Maternal Age At EDD 32.7 yr (.); OSBR Risk 1 IN 6916 (.); Results Report (.)
== END 2024-07-20 13:14 | disposition home or self-care (01) ==
LOC: LAB 13:15
PROVIDERS: Visit Provider Obstetrics & Gynecology
DX: Z34.92 Encounter for supervision of normal pregnancy, unspecified, second trimester (principal); Z3A.16 16 weeks gestation of pregnancy
CPT/HCPCS: 36415; 82105

== ENCOUNTER 2024-09-07 10:30 | Outpatient (OUT) | payer MEDICAID, SELFPAY ==
--- OUTSIDE RECORDS SUMMARY | 2024-09-07 10:52 | XMS_ITS | CCD ---
Author Organization [facility] Care Team Providers Care Tour Sales Representative Name Role Phone CLARA JAMA Unavailable Unavail able SERENITY MALDONADO Unavailable Unavailable OKSANA CARO Unavailable UnaNAGA Bai Unavailable Unavailable BARBOSA, LUKE MALIK Unavailable Unavailable Patrick, Eloisa R Unavailable Unavailable Patrick, Eloisa R Unavailable Unavailable Barbosa, Luke Unavailable Unavailable Barrington, Christian A Unavailable Unavailable Barbosa, Luke Unavailable Unavailable Barrington, Christian A Unavailable Unavailable Barbosa, Luke Unavailable Unavailable Barrington, Christian A Unavailable Unavailable Barbosa, Luke Unavailable Unavailable Barrington, Christian A Unavailable Unavailable Barbosa, Luke Unavailable Unavailable Barrington, Christian A Unavailable Unavailable Barrington, Christian A Unavailable Unavailable Barbosa, Luke Unavailable Unavailable Barrington, Christian A Unavailable Unavailable Barbosa, Luke Unavailable Unavailable Shekhar, Christian A Unavailable Unavailable Shekhar, Christian A Unavailable Unavailable Barbosa, Luke Unavailable Unavailable Barbosa, Luke Unavailable Unavailable Woo, Emiliano Unavailable Unavailable Woo, Emiliano Unavailable Unavailable Patrick Eloisa R Unavailable Unavailable Barbosa, Luke Unavailable Unavailable Barbosa, Luke Unavailable Unavailable Thompsons, Jag W Unavailable Unavailable Thompsons, Jag W Unavailable Unavailable Barrington, Christian A Unavailable Unavailable Barbosa, Luke Unavailable Unavailable Barrington, Christian A Unavailable Unavailable Barbosa, Luke Unavailable [...] No Doctor Assigned, Nodr Unavailable Unavail able Thompsons, Jag W Unavailable Unavailable Thompsons, Jag W Unavailable Unavailable Barbosa, Luke Unavailable Unavailable No Doctor Assigned, Nodr Unavailable Unavail able Gamaliel Savage Unavailable Unavailable Barbosa, Luke Unavailable Unavailable Hannha, Aaron A Unavailable Unavailable Hannah, Aaron A Unavailable Unavailable Patrick, Eloisa R Unavailable Unavailable Patrick, Eloisa R Unavailable Unavailable Barbosa, Luke Unavailable Unavailable Frank, Juanita Unavailable Unavailable Frank, Juanita Unavailable Unavailable Barbosa, Luke Unavailable Unavailable Shekhar, Christian A Unavailable Unavailable Barrington, Christian A Unavailable Unavailable Barbosa, Luke Unavailable Unavailable Barrington, Christian A Unavailable Unavailable Barbosa, Luke Unavailable Unavailable Barbosa, Luke Unavailable Unavailable Thompsons, Jag W Unavailable Unavailable Oscar, Jag W Unavailable Unavailable Barrington, Christian A Unavailable Unavailable Barbosa, Luke Unavailable Unavailable Gamaliel Savage Unavailable Unavailable Gamaliel Savage Unavailable Unavailable Barbosa, Luke Unavailable Unavailable Barrington, Christian A Unavailable Unavailable Barbosa, Luke Unavailable Unavailable JAMA, CLARA Unavailable Unavailable SHEKHAR, CHRISTIAN Unavailable Unavailable PROVIDER, EXTERNAL Unavailable Unavailable JAMA, CLARA Unavailable Unavailable SHEKHAR, CHRISTIAN Unavailable Unavailable PROVIDER, EXTERNAL Unavailable Unavailable PATEL, WASIM Unavailable Unavailable PATEL, WASIM Unavailable Unavailable PROVIDER, EXTERNAL Unavailable Unavailable JIGNAMEREDITH CERVANTES Unavailable Unavailable FRANK, JUANITA Unavailable Unavailable PROVIDER, [...] Emergency Provider SADAF Wyatt Primary Care Provider [facility] Elle Whitney Emergency Provider DIANA ., DR ACOSTA Consulting Unavailable [facility] [place] Care Unavailable DIANA ., DR ACOSTA Attending Unavailable DIANA ., DR ACOSTA Admitting Unavailable DIANA ., DR ACOSTA Admitting Unavailable DIANA ., DR ACOSTA Attending Unavailable [facility] [place] Primary Care Unavailable DIANA ., DR ACOSTA Consulting Unavailable SUSI, DR FELECIA Chadwick Consulting Unavailable [facility] [place] Primary Care Unavailable KARASIK ., DR CAMACHO Admitting Unavailabl e KARASIK ., DR CAMACHO Attending Unavailabl e KARASIK ., DR CAMACHO Consulting Unavailabl e MIRANDA, DR GAMALIEL Fischer Consulting Unavailable DIANA ., DR ACOSTA Consulting Unavailable ZIEBER, DR FELECIA Chadwick Consulting Unavailable WILLIAMS ., ELENA Admitting Unavailable WILLIAMS ., ELENA Attending Unavailable [facility] [place] Primary Care Unavailable WILLIAMS ., ELENA Consulting Unavailable DIANA ., DR ACOSTA Admitting Unavailable DIANA ., DR ACOSTA Attending Unavailable [facility] [place] Primary Care Unavailable DIANA ., DR ACOSTA Consulting Unavailable [facility] [place] Primary Care Unavailable KARASIK ., DR CAMACHO Admitting Unavailabl e KARASIK ., DR CAMACHO Attending Unavailabl e KARASIK ., DR CAMACHO Consulting Unavailabl e DIANA ., DR ACOSTA Admitting Unavailable DIANA ., DR ACOSTA Attending Unavailable [facility] [place] Primary Care Unavailable DIANA ., DR ACOSTA Consulting Unavailable ZIEBER, DR FELECAI Chadwick Consulting Unavailable DIANA ., DR ACOSTA Admitting Unavailable DIANA ., DR ACOSTA Attending Unavailable [facility] [place] Primary Care Unavailable DIANA ., DR ACOSTA Consulting Unavailable ZIEBER, DR FELECIA Chadwick Consulting Unavailable PRATIMA, BRODIE Consulting Unavailable DIANA ., DR ACOSTA Consulting Unavailable [facility] [place] Primary Care Unavailable DIANA ., DR ACOSTA Attending Unavailable DIANA ., DR ACOSTA Admitting Unavailable ZIEBER, DR FELECIA Chadwick Consulting Unavailable DIANA ., DR ACOSTA Consulting Unavailable [facility] [place] Primary Care Unavailable DIANA ., DR ACOSTA Attending Unavailable DIANA ., DR ACOSTA Admitting Unavailable DIANA ., DR ACOSTA Admitting Unavailable DIANA ., DR ACOSTA Attending Unavailable [facility] [place] Primary Care Unavailable DIANA ., DR ACOSTA Consulting Unavailable ZIEBER, DR FELECIA Chadwick Consulting Unavailable DIANA ., DR ACOSTA Admitting Unavailable DIANA ., DR ACOSTA Attending Unavailable [facility] [place] Primary Care Unavailable WEST, DR GAMALIEL Fischer Consulting Unavailable DIANA ., DR ACOSTA Consulting Unavailable [facility] [place] Primary Care Unavailable KARASIK ., DR CAMACHO Admitting Unavailabl e KARASIK ., DR CAMACHO Attending Unavailabl e KARASIK ., DR CAMACHO Consulting Unavailabl e DIANA ., DR ACOSTA Consulting Unavailable ZIEBER, DR FELECIA Chadwick Consulting Unavailable DIANA ., DR ACOSTA Admitting Unavailable DIANA ., DR ACOSTA Attending Unavailable [facility] [place] Primary Care Unavailable WEST, DR GAMALIEL Fischer Consulting Unavailable DIANA ., DR ACOSTA Consulting Unavailable DIANA ., DR ACOSTA Admitting Unavailable DIANA ., DR ACOSTA Attending Unavailable [facility] [place] Primary Care Unavailable DIANA ., DR ACOSTA Consulting Unavailable DIANA ., DR ACOSTA Admitting Unavailable DIANA ., DR ACOSTA Attending Unavailable [facility] [place] Primary Care Unavailable DIANA ., DR ACOSTA Consulting Unavailable ZIEBER, DR FELECIA Chadwick Consulting Unavailable DIANA ., DR ACOSTA Admitting Unavailable DIANA ., DR ACOSTA Attending Unavailable [facility] [place] Primary Care Unavailable DIANA ., DR ACOSTA Consulting Unavailable DIANA ., DR ACOSTA Admitting Unavailable DIANA ., DR ACOSTA Attending Unavailable [facility] [place] Primary Care Unavailable DIANA ., DR ACOSTA Consulting Unavailable [facility] [place] Primary Care Unavailable DIANA ., DR ACOSTA Attending Unavailable DIANA ., DR ACOSTA Admitting Unavailable DIANA ., DR ACOSTA Admitting Unavailable DIANA ., DR ACOSTA Attending Unavailable [facility] [place] Primary Care Unavailable DIANA ., DR ACOSTA Admitting Unavailable DIANA ., DR ACOSTA Attending Unavailable [facility] [place] Primary Care Unavailable KARASIK ., DR CAMACHO Consulting Unavailabl e DIANA ., DR ACOSTA Consulting Unavailable DIANA ., DR ACOSTA Procedure Practitioner Unavail able ORLANDO PRASAD Consulting Unavailable JACQUES FLETCHER Consulting Unavailable DIANA ., DR ACOSTA Admitting Unavailable DIANA ., DR ACOSTA Attending Unavailable [facility] [place] Primary Care Unavailable KARASIK ., DR CAMACHO Consulting Unavailabl e ZIEBER, DR FELECIA Chadwick Consulting Unavailable SADAF Wyatt Primary Care Provider MD Farhan Jean Attending Provider DO Ryan Poe Emergency Provider DO Arden Orozco Admit Provider DO Arden Orozco Attending Provider [phone] Clon, CST Igor Other Provider UnavailMD Juan Edwards Other Provider HAROON Monique Other Provider MD Jacques Valerio Other Provider [phone] MD Edith Urias Other Provider SADAF Wyatt Primary Care Provider Meagan, [facility] Emergency Provider BRANNON Valencia Emergency Provider Andie Johnson Unavailable Unallocated, [place] Provider Primary Care Provider AMAURI RODRIGUEZ Referring Unavailable ANDIE WYATT Primary Care Unavailable DIANA, CUONG R Referring Unavailable ANDIE WYATT Primary Care Unavailable Unallocated Beatrice CHAUs Provider Primary Care Provi kwabena Andie Wyatt PA-C Primary Care Provider Diana DO, Cuong Attending Provider Andie Wyatt Primary Care Unavailable Diana, Cuong Attending Unavailable Diana, Cuong Admitting Unavailable Andie Wyatt PA-C Primary Care Provider DIANA, CUONG Attending Unavailable DIANA, CUONG Attending Unavailable DIANA, CUONG Attending Unavailable DIANA, CUONG Attending Unavailable DIANA, CUONG Attending Unavailable WILLIAMS, ELENA Attending Unavailable DIANA, CUONG Attending Unavailable DIANA, CUONG Attending Unavailable DIANA, CUONG R Referring Unavailable ANDIE WYATT Primary Care Unavailable AMELIA, ASHWIN Attending Unavailable ANDIE WYATT Referring Unavailable ANDIE WYATT Primary Care Unavailable Allergies Allergy Classification Reported Allergen(s) Allergy Type Date of Onset Reaction(s) Facility (2 sources) Bee; Translations: [BEES] Propensity to adverse reactions [facility]disorder[facility] Mold spore; Translations: [MOLD SPORES] Propensity to adverse reactions (disorder) [facility]-01-[facility] (20 sources) Penicillins; Translations: [PENICILLINS] Propensity to adverse reactions to drug (disorder) 11-27-19 14 Hives [facility] Repository (16 sources) Sulfonamides (Antibiotic); Translations: [SULFA (SULFONAMIDE ANTIBIOTICS)] Propensity to adverse reactions to drug (disorder) 12-01-19 18 AOF, Rash [facility] Repository (1 source) Bee/Wasp/Ant venom; Translations: [Bee Stings] Propensity to adverse reactions to drug (disorder) [facility] Repository (3 sources) mold extract; Translations: [Mold] Drug Allergy 08-13-19 25 [facility] Repository (1 source) Sulfonamides (Antibiotic); Translations: [sulfa drugs] Propensity to adverse reactions to drug (disorder) [facility] Repository (12 sources) bee venom; Translations: [BEE VENOM] Propensity to adverse reactions to drug (disorder) 07-18-[address] [facility] Repository (1 source) OTHER; Translations: [OTHER] Propensity to adverse reactions to food (disorder) 11-22-[address] [facility] Repository (3 sources) MOLDS & SMUTS; Translations: [MOLDS & SMUTS] Propensity to adverse reactions to drug (disorder) 07-18-[address] [facility] Repository (12 sources) SULFA ANTIBIOTICS; Translations: [SULFA ANTIBIOTICS] Propensity to adverse reactions to drug (disorder) 07-18-19 18 [facility] Repository (1 source) Sulfonamides (Antibiotic) Drug allergy (disorder) 11-27-19 14 [facility] Repository (7 sources) BEE VENOM PROTEIN (HONEY BEE); Translations: [BEE VENOM PROTEIN (HONEY BEE)] Propensity to adverse reactions to drug (disorder) 03-27-20 [facility] Repository (2 sources) Penicillin; Translations: [penicillin V] Drug Allergy 03-15-19 92 anaphylaxis [facility] (2 sources) Sulfacetamide; Translations: [sulfacetamide] Drug Allergy 03-15-19 92 anaphylaxis [facility] (2 sources) Bee pollen Allergy to substance 08-13-19 [facility] (2 sources) Penicillin G Drug Allergy 08-13-19 [facility] (2 sources) Sulfamethoxazole Allergy to substance 08-13-19 [facility] Healthcare Medications Current Medications Medication Drug Class(es) Dates [...] 2022 11:25pm fluconazole 10 mg/ml oral suspension (5 sources) Azole Antifungal Start: 08-06-2022 fluconazole (DIFLUCAN) 10 mg/mL suspension 08/06/2022 Active 24 hr metoprolol succinate 50 mg extended release oral tablet (3 sources) beta-Adrenergic Farheen Start: 02-27-2023 take 1 tablet by mouth every twenty-four hours in the morning metoprolol succinate XL (Toprol-XL) 50 MG 24 hr tablet Take 50 mg by mouth in the morning. 0 02/27/2023 Active [place] (No Known Home Meds) (2 sources) Start: 12-18-2022 [place] (No Known Home Meds) Active December 18, 2022 12:00am ondansetron 4 mg disintegrating oral tablet (5 sources) Serotonin-3 Receptor Antagonist take 1 tablet by mouth every eight hours as needed for nausea and vomiting ondansetron ODT (ZOFRAN ODT) 4 mg disintegrating tablet Dissolve 1 tablet (4 mg total) on tongue every 8 (eight) hours as needed for nausea or vomiting. Active 25/iron fum/folic/dha (-1 ORAL) (5 sources) take 1 capsule by mouth once daily 25/iron fum/folic/dha (-1 ORAL) Take 1 capsule by mouth once daily. Active 25/iron fum/folic/dha (-1 ORAL) Take by mouth. 0 Active Qqazbjde-Mvb-Cv-FA (, w/Iron & FA,) 27-0.8 MG tablet (3 sources) Okxbtptu-Pyc-Qv-FA (, w/Iron & FA,) 27-0.8 MG tablet 1 (one) time each day at the same time. 0 Active JQ-Hkd-HC-Sheridan-3 ( Gummies/DHA & FA) 0.4-32.5 MG chewable tablet (3 sources) Start: End: DG-Spq-ML-Sheridan-3 ( Gummies/DHA & FA) 0.4-32.5 MG chewable tablet Indications: 18 weeks gestation of Chew 0.4 mg in the morning. 30 tablet 07/09/2023 08/08/2023 Active Vit-Fe Fumarate-FA (PNV Plus Multivitamin) 27-1 MG tablet (8 sources) Start: take 1 tablet by mouth once daily Vit-Fe Fumarate-FA (PNV Plus Multivitamin) 27-1 MG tablet Indications: First trimester Take 1 tablet by mouth Daily 30 tablet 11 04/29/2024 Active promethazine hydrochloride 12.5 mg oral tablet (6 sources) Phenothiazine Start: End: take 1 tablet by mouth every six [...] 20, 2022 12:00am December 18, 2022 10:25pm nitrofurantoin, macrocrystals 25 mg / nitrofurantoin, monohydrate 75 mg oral capsule (4 sources) Nitrofuran Antibacterial Start: 07-15-2024 End: 07-22-2024 take 1 capsule by mouth in the morning nitrofurantoin, macrocrystal-monoh ydrate, (Macrobid) 100 MG capsule Indications: UTI symptoms Take 1 capsule (100 mg) by mouth in the morning and 1 capsule (100 mg) before bedtime. Do all this for 7 days. 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)] Onset: 09-10-2022 09-10-2022 Chronic Anxiety disorders (10 sources) Anxiety; Translations: [Anxiety disorder, unspecified] Onset: 09-10-2022 09-10-2022 Chronic Attention-deficit, conduct, and disruptive behavior disorders (5 sources) Attention deficit hyperactivity disorder; Translations: [Attention-deficit [...] [Missed period] Onset: 12-26-2021 Chronic Mood disorders (10 sources) Bipolar disorder; Translations: [Bipolar disorder, unspecified] Onset: 09-10-2022 09-10-2022 Chronic Nervous system congenital anomalies (11 sources) Congenital malformation of brain, unspecified; Translations: [...] of ; puerperium affecting management of mother (3 sources) Fetus with chromosomal abnormality; Translations: [Fetus with trisomy 13, single gestation] 07-03-2023 Episodic Other complications of ; puerperium affecting management of mother (1 source) Suspected disorder; Translations: [Maternal care for (suspected) abnormality and damage, unspecified, not applicable or unspecified] 08-27-2024 Episodic Other congenital anomalies (1 source) Multiple congenital malformations, not elsewhere classified; Translations: [Multiple congenital malformations, not elsewhere classified] Onset: 12-02-2017 Chronic Other congenital anomalies (5 sources) Talipes equinovarus; 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] Onset: 09-10-2022 09-10-2022 Chronic Other congenital anomalies (2 sources) Congenital malformation; Translations: [Congenital malformation, unspecified] 08-27-2024 Chronic Other injuries and conditions due to [...] Translations: [Disturbance of skin sensation] 12-19-2022 Episodic Other screening for suspected conditions (not mental disorders or infectious disease) (18 sources) Encounter for screening for malignant neoplasm of cervix; Translations: [Encounter for screening for diabetes mellitus] Onset: 12-27-2021 Episodic Residual codes; unclassified (1 source) 39 weeks gestation of ; Translations: [39 WEEKS GESTATION OF ] Onset: 08-15-2022 Episodic Residual codes; unclassified (1 source) Gestation period, 12 weeks; Translations: [12 weeks gestation of ] 06-18-2024 Episodic Residual codes; unclassified (2 sources) Gestation period, 16 weeks; Translations: [16 weeks gestation of ] 07-20-2024 Episodic Residual codes; unclassified (3 sources) Family history of hereditary disease; Translations: [Family history of other specified conditions] 07-03-2023 Episodic Residual codes; unclassified (2 sources) Gestation period, 20 weeks; Translations: [20 weeks gestation of ] 08-13-2024 Episodic Screening and history of mental health [...] Onset: 11-30-2017 Unclassified (3 sources) M/C OTH STUDENT UNION CONSULTANT 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 NA/UNS; Translations: [M/C OTH STUDENT UNION CONSULTANT 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 NA/UNS] Onset: 07-05-2022 Unclassified (6 sources) OB Reminders Onset: 06-23-2024 06-23-2024 Unclassified (1 source) mfm consult Onset: 08-27-2024 Past or Other Problems Problem Classification Problem Date Documented Date Episodic/Chronic Early or threatened labor (4 sources) False labor before 37 completed weeks of gestation, third trimester; Translations: [FALSE LABR BEFOR 37 WK GEST 3RD TRI] Onset: 06-16-2022 Episodic Mood disorders (5 sources) Mood disorders Onset: 05-02-2022 05-02-2022 Other [...] MOTHER] Onset: 03-20-2022 Episodic Other complications of (7 sources) Supervision of with other poor reproductive or obstetric history, second trimester; Translations: [ with other poor obstetric history] Onset: 03-28-2022 03-28-2022 Episodic Other female genital disorders (1 source) Other specified noninflammatory disorders of vagina; Translations: [OTH SPEC NONINFLAMMATORY D/O VAGINA] Onset: 02-07-2022 Episodic Polyhydramnios and other problems of amniotic [...] ] Onset: 12-12-2021 Episodic Residual codes; unclassified (8 sources) Family history of trisomy 13; Translations: [Family history of other congenital malformations, deformations and chromosomal abnormalities] Onset: 09-30-2023 09-30-2023 Episodic Unclassified (1 source) M/C OTH STUDENT UNION CONSULTANT 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 NA/UNS; Translations: [M/C OTH STUDENT UNION CONSULTANT 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 NA/UNS] Onset: 07-02-2022 Unclassified (1 source) 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 , 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 08-27-2024 Unclassified (1 source) Patient encounter status 08-27-2024 Results Test Name Value Interpretation Reference Range Facility US OB 14+ WEEKS ANATOMY SCAN on 08-13-2024 US OB 14+ WEEKS ANATOMY SCAN EXAM: US OB 14+ WEEKS ANATOMY SCAN HISTORY: anatomy. TECHNIQUE: Two-dimensional transabdominal grayscale ultrasound imaging of the pelvis was performed. FINDINGS: Gestation: Single Presentation: Variable Cardiac Activity: 141 beats per minute Placental Location: Anterior with no sonographic abnormalities identified. Distance from Placental Tip to Cervix: 5.0 cm Cervical Length: 4.2 cm Amniotic Fluid: Appears adequate MEASUREMENTS: BPD: 4.4 cm EGA: 19 weeks 3 days HC: 17.5 cm EGA: 20 weeks 0 days AC: 15.5 cm EGA: 20 weeks 4 days FL: 3.4 cm EGA: 20 weeks 5 days HC/AC Ratio: 1.13 The gestational age by today's ultrasound is 20 weeks 1 days (+/- 10 days gestation). Estimated Weight: 363 grams, +/- 54 grams ( 0 lb 13 oz). Weight Percentile for gestational age: 62 % ANATOMY C-Spine: Unremarkable T-Spine: Unremarkable L-Spine: Unremarkable Sacrum: Unremarkable Four Chamber Heart: Unremarkable LVOT: Unremarkable RVOT: Unremarkable Stomach: Unremarkable Kidneys: Unremarkable Bladder: Unremarkable Diaphragm: Unremarkable Cord insertion: Unremarkable Cord vessels: Three Lateral Ventricles: Unremarkable Cerebellum: Unremarkable Cisterna Magna: Unremarkable Posterior Fossa: Unremarkable Right Femur: Unremarkable Left Femur: Unremarkable Right Tib/Fib: Unremarkable Left Tib/Fib: Unremarkable Right Rad/Ulnar: Unremarkable Left Rad/Ulnar: Unremarkable Right Humerus: Unremarkable Left Humerus: Unremarkable Nose/Lips: Unremarkable Profile: Unremarkable Orbits: Unremarkable IMPRESSION: 1. Single, live intrauterine gestation 20 weeks, 2 days by LMP. Today's ultrasound measurements correlate with a gestational age of 20 weeks 1 days. Estimated weight is 363 grams, +/- 54 grams ( 0 lb 13 oz) which correlates to 62 %. HUGO is 12/30/2024. 2. Unremarkable ultrasound of the anatomy. Electronically Signed:Electronically signed by ELOISA HSU II, MD, PHD at 15-Aug-2024 07:21:28 AM [facility] Normal Not Available Comment on above: Order Comment: US OB ANATOMY SINGLE W US OB CERVICAL LENGTH Estimated Date of Delivery: 12/29/24 Gestational Age as of 07/20/2024: 16w6d AFP, SERUM, OPEN SPINA BIFID Aon 07-22-2024 AFP MOM 1.18 . [facility] AFP VALUE 42.2 ng/mL . [facility] COMMENT: Comment . [facility] Comment on above: Alma Chaudhary , Ph.D., [facility] Director References: Available Upon Request. Multiples Of Median Cutoffs For AFP Elevations Briscoe 2.5 Black 2.8 IDD 2.0 Twins 4.5 Abbreviation Definitions IDD - Insulin Dep Diabetes OSBR - Open Spina Bifida Risk For further inquiries contact [facility] at [phone]. This test was developed and its performance characteristics determined by [employer]. It has not been cleared or approved by the Food and Drug Administration. Performed at: [facility] [address] [place], [place] [id number] Front Desk Representative: Oz Harkins [facility], Phone: [phone] GEST. AGE ON COLLECTION DATE 16.9 . weeks [facility] GESTAT. AGE BASED ON LMP . [facility] Comment on above: Recalculations are n ot recommended when gestational dating by LMP and ultrasound are within 10 days. INSULIN DEP DIABETES No . [facility] INTERPRETATION Comment . [facility] Comment on above: Interpretation: Scre en [...] Customer Services to discuss available options. The [employer] recommends amniocentesis be offered to women age 35 and older. MATER[age] HUGO [age] [facility] MULTIPLE GESTATION No . [facility] OSBR RISK 1 IN 16 . [facility] RACE . [facility] RESULTS Report . [facility] TEST RESULTS: Negative . [facility] WEIGHT 159 . lbs [facility] N N LMP [id number] 6 16 N 1 159 N N N N N White/ [facility] Urinalysis macro (dipstick) panel (U)on 07-20-2024 Bilirubin, UA Negative Negative - 4(70) +++ mg/dL [facility] Blood, UA Negative Negative - 50 Rakesh/mcL [facility] Clarity, UA Clear [facility] Color, UA Yellow [facility] Glucose, UA Negative Negative - 2000(110) ++++ mg/dL [facility] [facility] Interpretation and review of laboratory results Abnormal [facility] Ketones, UA Negative Negative - 160(16) ++++ mg/dL [facility] Leukocytes, UA Trace Negative - 500+++ Matti/mcL [facility] Nitrite, UA Negative Negative - Positive [facility] pH, UA 6 5 - 9 [facility] Protein, UA Negative Negative - 2000(20) ++++ mg/dL [facility] Spec Grav, UA 1.03 1 - 1.03 [facility] Urobilinogen, UA 0.2 0.2 - 12 mg/dL [facility] ALL CBC WITH AUTO DIFFon BASOPHILS ABSOLUTE AUTO 0 [facility] Basophils/100 WBC (Bld) 0.3 % 0.2 - 2.0 % [facility] Eosinophils/100 WBC (Bld) 0.7 % Low 0.9 - 7.0 % [facility] Erythrocyte distribution width (RBC) [Ratio] 14.4 % 11.0 - 15.0 % [facility] Hematocrit (Bld) [Volume fraction] 42.1 % 36.0 - 48.0 % [facility] Hemoglobin (Bld) [Mass/Vol] 13.6 g/dL 12.0 - 16.0 g/dL [facility] IMMATURE GRANULOCYTES ABS AUTO 0.02 [facility] Immature granulocytes/100 WBC (Bld) 0.3 % 0.0 - 0.5 % [facility] Interpretation and review of laboratory results Abnormal [facility] LYMPHOCYTES ABSOLUTE AUTO 1.2 [facility] Lymphocytes/100 WBC (Bld) 15.9 % Low 20.5 - 60.0 % [facility] MCH (RBC) [Entitic mass] 27.6 pg 26.7 - 34.0 pg [facility] MCHC (RBC) [Mass/Vol] 32.3 g/dL 29.9 - 35.2 g/dL [facility] MCV (RBC) [Entitic vol] 85.4 fL 81.0 - 99.0 fL [facility] MONOCYTES ABSOLUTE AUTO 0.4 [facility] Monocytes/100 WBC (Bld) 5.2 % 1.7 - 12.0 % [facility] NEUTROPHILS ABSOLUTE AUTO 5.7 [facility] Neutrophils/100 WBC (Bld) 77.6 % High 43.0 - 75.0 % [facility] Platelet mean volume (Bld) [Entitic vol] 10 fL 9.5 - 13.5 fL [facility] TBH EO # 0.1 [facility] PLT 194 [facility] RBC 4.93 [facility] TB WBC 7.4 [facility] Urine Cultureon 06-22-2024 Bacteria identified Cx Nom (U) <9,000 colonies/ml mixed bacterial skin contaminants 2 Days PERFORMED BY: [place] [address] PATHOLOGIST SCARFER OPERATOR JONO WILSON M.D. Normal [facility] Comment on above: Performed By: #### C UU #### [address] HCG ( test) Ql (U)o n 06-18-2024 Interpretation and review of laboratory results Abnormal [facility] Preg Test, Ur Positive Negative [facility] Urinalysis macro (dipstick) panel (U)on 06-18-2024 Bilirubin, UA Negative Negative - 4(70) +++ mg/dL [facility] Blood, UA Negative Negative - 50 Rakesh/mcL [facility] Clarity, UA Clear [facility] Color, UA Yellow [facility] Glucose, UA Negative Negative - 1999(110) ++++ mg/dL [facility] Interpretation and review of laboratory results Abnormal [facility] Ketones, UA Negative Negative - 160(16) ++++ mg/dL [facility] Leukocytes, UA Negative Negative - 500+++ Matti/mcL [facility] Nitrite, UA Negative Negative - Positive [facility] pH, UA 6.5 5 - 9 [facility] Protein, UA Negative Negative - 2000(20) ++++ mg/dL [facility] Spec Grav, UA 1.015 1 - 1.03 [facility] Urobilinogen, UA 0.2 0.2 - 12 mg/dL [facility] AFP, SERUM, OPEN SPINA BIFID Aon 07-20-2023 AFP MOM 1.21 . [facility] AFP VALUE 70.2 ng/mL . [facility] COMMENT: Comment . [facility] Comment on above: Alma Chaudhary , Ph.D., [facility] Director References: Available Upon Request. Multiples Of Median Cutoffs For AFP Elevations Briscoe 2.5 Black 2.8 IDD 2.0 Twins 4.5 Abbreviation Definitions IDD - Insulin Dep Diabetes OSBR - Open Spina Bifida Risk For further inquiries contact [employer] [facility] at [phone]. This test was developed and its performance characteristics determined by [employer]. It has not been cleared or approved by the Food and Drug Administration. Performed at: [facility] [address] [place], [place] [id number] Front Desk Representative: Oz Harkins [facility], Phone: [phone] GEST. AGE ON COLLECTION DATE 20.4 . weeks [facility] GESTAT. AGE BASED ON LMP . [facility] Comment on above: Recalculations are n ot recommended when gestational dating by LMP and ultrasound are within 10 days. INSULIN DEP DIABETES No . [facility] INTERPRETATION Comment . [facility] Comment on above: Interpretation: Scre en [...] Customer Services to discuss available options. The [employer] recommends amniocentesis be offered to women age 35 and older. [age] [facility] MULTIPLE GESTATION No . [facility] OSBR RISK 1 [place] 6301 . [facility] RACE . [facility] RESULTS Report . [facility] TEST RESULTS: Negative . [facility] WEIGHT 159 . lbs [facility] N N LMP [id number] 3 16 N 1 Y 159 N N N N White/ [facility] Urinalysis macro (dipstick) panel (U)on 07-18-2023 Bilirubin, UA Negative Negative - 4(70) +++ mg/dL [facility] Blood, UA Negative Negative - 50 Rakesh/mcL [facility] Clarity, UA Clear [facility] Color, UA Yellow [facility] Glucose, UA Negative Negative - 2000(110) ++++ mg/dL [facility] Interpretation and review of laboratory results Normal [facility] Ketones, UA Negative Negative - 160(16) ++++ mg/dL [facility] Leukocytes, UA Negative Negative - 500+++ Matti/mcL [facility] Nitrite, UA Negative Negative - Positive [facility] pH, UA 5.5 5 - 9 [facility] Protein, UA Negative Negative - 2000(20) ++++ mg/dL [facility] Spec Grav, UA 1.020 1 - 1.03 [facility] Urobilinogen, UA 1.0 0.2 - 12 mg/dL [facility] Free Cell DNAon 2022 [facility] Amphetamine Screen Ql (U)Ord ered By: Ryan Poe on 12-19-2022 Amphetamines Ql (U) Negative Negative [facility] Automated erythrocytes count in urine sediment (number/area)Ordered By: Ryan Poe on 12-19-2022 RBC Auto (Urine sed) [#/Area] 5-9 [HPF] 0-4 [facility] Automated leukocytes count i n urine sediment (number/area)Ordered By: Ryan Poe on 12-19-2022 WBC Auto (Urine sed) [#/Area] 10-19 [HPF] 0-4 [facility] Barbiturates [Presence] in U rine by Screen methodOrdered By: Ryan Poe on 12-19-2022 Barbiturates Screen Ql (U) Negative Negative [facility] Benzodiazepines Screen Ql (U )Ordered By: Ryan Poe on 12-19-2022 Benzodiazepines Ql (U) Negative Negative [facility] Benzoylecgonine [Presence] i n Urine by Screen methodOrdered By: Ryan Poe on 12-19-2022 Benzoylecgonine Screen Ql (U) Negative Negative [facility] Bilirubin Test strip Ql (U)O rdered By: Ryan Poe on 12-19-2022 Bilirubin Ql (U) Negative Negative [facility] Cannabinoids [Presence] in U rine by Screen methodOrdered By: Ryan Poe on 12-19-2022 Cannabinoids Screen Ql (U) Positive Negative [facility] Comment on above: These are unconfirme d results and should not be used for legal purposes. Drug Cut-Off Concentration: AMPH 1000 ng/mL SEEMA 200 ng/mL LAZ 200 ng/mL COCM 300 ng/mL OP 300 ng/mL PCP 25 ng/mL THC 20 ng/mL Color Auto (U)Ordered By: Fernando Poe on 12-19-2022 Color (U) Yellow Yellow [facility] HCG ( test) IA.rapi d Ql (U)Ordered By: Ryan Poe on 12-19-2022 HCG ( test) Ql (U) Negative [facility] Ketones Auto test strip (U) [Mass/Vol]Ordered By: Ryan Poe on 12-19-2022 Ketones (U) [Mass/Vol] 1+ Negative Fi [facility] Laboratory - UrinalysisOrder ed By: Ryan Poe on 12-19-2022 Hyaline casts LM Ql (Urine sed) 0-8 [LPF] 0-8 [facility] Nitrite Test strip Ql (U)Ord ered By: Ryan Poe on 12-19-2022 Nitrite Ql (U) Negative Negative [facility] Opiates [Presence] in Urine by Screen methodOrdered By: Ryan Poe on 12-19-2022 Opiates Screen Ql (U) Negative Negative [facility] Phencyclidine Screen Ql (U)O rdered By: Ryan Poe on 12-19-2022 Phencyclidine Ql (U) Negative Negative [facility] Protein Auto test strip (U) [Mass/Vol]Ordered By: Ryan Poe on 12-19-2022 Protein (U) [Mass/Vol] Negative Negative [facility] Specific gravity Auto test s trip (U) [Rel density]Ordered By: Ryan Poe on 12-19-2022 Specific gravity (U) [Rel density] 1.025 1.001-1.03 0 [facility] Squamous epithelial cells de tection in urine sediment by light microscopyOrdered By: Ryan Poe on 12-19-2022 Epithelial cells.squamous LM Ql (Urine sed) 3-4 [HPF] 0-2 [facility] Urine bacteria detection by automated methodOrdered By: Ryan Poe on 12-19-2022 Bacteria Auto Ql (U) None seen None Seen [facility] Urine clarity by refractomet ry automatedOrdered By: Ryan Poe on 12-19-2022 Clarity Refractometry automated (U) Clear Clear [facility] Urine culture routineOrdered By: Ryan Poe on 12-19-2022 Bacteria identified Cx Nom (U) 2 Days [facility] Urine glucose measurement by automated test strip (mass/volume)Ordered By: Ryan Poe on 12-19-2022 Glucose Auto test strip (U) [Mass/Vol] Normal mg/dL Normal [facility] Urine hemoglobin detection b y automated test stripOrdered By: Ryan Poe on 12-19-2022 Hemoglobin Auto test strip Ql (U) Negative Negative [facility] Urine leukocyte esterase det ection by automated test stripOrdered By: Ryan Poe on 12-19-2022 Leukocyte esterase Auto test strip Ql (U) 2+ Negative [facility] Urobilinogen Auto test strip (U) [Mass/Vol]Ordered By: Ryan Poe on 12-19-2022 Urobilinogen (U) [Mass/Vol] Normal mg/dL Normal [facility] pH Auto test strip (U)Ordere d By: Ryan Poe on 12-19-2022 pH (U) 5.5 [pH] 5.0-9.0 [facility] Amylase [Enzymatic activity/ volume] in Serum or PlasmaOrdered By: Ryan Poe on 12-18-2022 Amylase [Catalytic activity/Vol] 35 U/L 29-103 [facility] Aspartate aminotransferase [ Enzymatic activity/volume] in Serum or PlasmaOrdered By: Ryan Poe on 12-18-2022 AST [Catalytic activity/Vol] 26 U/L 13-39 [facility] Basophils Auto (Bld) [#/Vol] Ordered By: Ryan Poe on 12-18-2022 Basophils (Bld) [#/Vol] 0.1 10*3/uL 0.0-0.2 [facility] Basophils/100 WBC Auto (Bld) Ordered By: Ryan Poe on 12-18-2022 Basophils/100 WBC (Bld) 0.7 % . [facility] Carbon dioxide, total [Moles /volume] in Serum or PlasmaOrdered By: Ryan Poe on 12-18-2022 CO2 [Moles/Vol] 20.0 mmol/L 21.0-31.0 [facility] Chloride [Moles/volume] in S gwendolyn or PlasmaOrdered By: Ryan Poe on 12-18-2022 Chloride [Moles/Vol] 105 mmol/L 98-107 [facility] Choriogonadotropin.beta subu nit [Units/volume] in Serum or PlasmaOrdered By: Ryan Poe on 12-18-2022 HCG.beta subunit Qn Negative [facility] Creatine kinase [Enzymatic a ctivity/volume] in Serum or PlasmaOrdered By: Ryan Poe on 12-18-2022 CK [Catalytic activity/Vol] 50 U/L 30-223 [facility] Creatinine [Mass/volume] in Serum or PlasmaOrdered By: Ryan Poe on 12-18-2022 Creatinine [Mass/Vol] 0.84 mg/dL 0.60-1.20 [facility] Eosinophils Auto (Bld) [#/Vo l]Ordered By: Ryan Poe on 12-18-2022 Eosinophils (Bld) [#/Vol] 0.0 10*3/uL 0.0-0.45 [facility] Eosinophils/100 WBC Auto (Bl d)Ordered By: Ryan Poe on 12-18-2022 Eosinophils/100 WBC (Bld) 0.2 % . [facility] Erythrocyte distribution wid th Auto (RBC) [Ratio]Ordered By: Ryan Poe on 12-18-2022 Erythrocyte distribution width (RBC) [Ratio] 14.4 % 11.9-15.3 [facility] Ethanol [Mass/volume] in Ser um or PlasmaOrdered By: Ryan Poe on 12-18-2022 Ethanol [Mass/Vol] mg/dL [facility] Ethanol [Mass/Vol] TNP [facility] Comment on above: Test not performed Glucose [Mass/volume] in Ser um or PlasmaOrdered By: Ryan Poe on 12-18-2022 Glucose [Mass/Vol] 93 mg/dL 70-100 [facility] Comment on above: ADA recommended refe rence rangeRandom Glucose Reference Range is dependent on time and content of last meal. Glucose of more than 200 mg/dL in a nonstressed, ambulatory subject supports the diagnosis of Diabetes Mellitus. Hematocrit Auto (Bld) [Volum e fraction]Ordered By: Ryan Poe on 12-18-2022 Hematocrit (Bld) [Volume fraction] 36.2 % 34.0-46.4 [facility] Hemoglobin [Mass/volume] in BloodOrdered By: Ryan Poe on 12-18-2022 Hemoglobin (Bld) [Mass/Vol] 11.9 g/dL 11.8-15.4 [facility] Leukocytes [#/volume] correc osmel for nucleated erythrocytes in Blood by Automated counOrdered By: Ryan Poe on 12-18-2022 WBC corrected for nucl RBC Auto (Bld) [#/Vol] 10.3 10*3/uL 3.8-11.6 [facility] Lipase [Enzymatic activity/v olume] in Serum or PlasmaOrdered By: Ryan Poe on 12-18-2022 Lipase [Catalytic activity/Vol] 29.0 U/L 11.0-82.0 [facility] Lymphocytes Auto (Bld) [#/Vo l]Ordered By: Ryan Poe on 12-18-2022 Lymphocytes (Bld) [#/Vol] 2.2 10*3/uL 1.00-4.8 [facility] Lymphocytes/100 WBC Auto (Bl d)Ordered By: Ryan Poe on 12-18-2022 Lymphocytes/100 WBC (Bld) 21.8 % . [facility] MCH Auto (RBC) [Entitic mass ]Ordered By: Ryan Poe on 12-18-2022 MCH (RBC) [Entitic mass] 26.9 pg 24.7-34.3 [facility] MCHC Auto (RBC) [Mass/Vol]Or dered By: Ryan Poe on 12-18-2022 MCHC (RBC) [Mass/Vol] 32.8 g/dL 32.0-35.0 [facility] MCV Auto (RBC) [Entitic vol] Ordered By: Ryan Poe on 12-18-2022 MCV (RBC) [Entitic vol] 82.1 fL 80-100 [facility] Monocyte distribution width [Entitic volume] in Blood by AutomatedOrdered By: Ryan Poe on 12-18-2022 Monocyte distribution width Auto (Bld) [Entitic vol] 22.19 % 0.00-20.00 [facility] Comment on above: For adults in ED, MD W > 20.0 may be associated with a higher risk of sepsis during the first 12 hrs of hospital admission Monocytes Auto (Bld) [#/Vol] Ordered By: Ryan Poe on 12-18-2022 Monocytes (Bld) [#/Vol] 0.8 10*3/uL 0.0-0.8 [facility] Monocytes/100 WBC Auto (Bld) Ordered By: Ryan Poe on 12-18-2022 Monocytes/100 WBC (Bld) 7.4 % . [facility] Neutrophils Auto (Bld) [#/Vo l]Ordered By: Ryan Poe on 12-18-2022 Neutrophils (Bld) [#/Vol] 7.2 10*3/uL 1.8-7.7 [facility] Neutrophils/100 WBC Auto (Bl d)Ordered By: Ryan Poe on 12-18-2022 Neutrophils/100 WBC (Bld) 69.9 % . [facility] No Panel InformationOrdered By: Ryan Poe on 12-18-2022 Estimated GFR (CKD-EPI) > 60.0 mL/Min [facility] Pharmacy Creatinine Clearance (Chem 98.76 [facility] Nucleated erythrocytes [Pres ence] in Blood by Automated countOrdered By: Ryan Poe on 12-18-2022 Nucleated RBC Auto Ql (Bld) 0.1 /100{WBC} 0-0.5 [facility] Platelet mean volume Auto (B ld) [Entitic vol]Ordered By: Ryan Poe on 12-18-2022 Platelet mean volume (Bld) [Entitic vol] 8.1 fL 6.3-10.7 [facility] Platelets Auto (Bld) [#/Vol] Ordered By: Ryan Poe on 12-18-2022 Platelets (Bld) [#/Vol] 223 10*3/uL 150-450 [facility] Potassium [Moles/volume] in Serum or PlasmaOrdered By: Ryan Poe on 12-18-2022 Potassium [Moles/Vol] 3.5 mmol/L 3.5-5.1 [facility] RBC Auto (Bld) [#/Vol]Ordere d By: Ryan Poe on 12-18-2022 RBC (Bld) [#/Vol] 4.42 10*6/uL 3.60-5.00 [facility] Serum or plasma anion gap de terminationOrdered By: Ryan Poe on 12-18-2022 Anion gap [Moles/Vol] 14.5 mmol/L 6.0-15.0 [facility] Sodium [Moles/volume] in Ser um or PlasmaOrdered By: Ryan Poe on 12-18-2022 Sodium [Moles/Vol] 136 mmol/L 136-145 [facility] Urea nitrogen [Mass/volume] in Serum or PlasmaOrdered By: Ryan Poe on 12-18-2022 Urea nitrogen [Mass/Vol] 21 mg/dL 7-25 [facility] WBC Auto (Bld) [#/Vol]Ordere d By: Ryan Poe on 12-18-2022 WBC (Bld) [#/Vol] 10.3 10*3/uL 3.8-11.6 [facility] PRBC LEUKOREDUCEDon 07-14-19 ABO and Rh group Nom (Bld) Cross Match Result Compatible Unit Blood Type A Pos Unit Number [id number] Status Information Released Specimen Exp Date [id number] Product ID Red Blood Cells Product Code [id number] Cross Match Result Compatible Unit Blood Type A Pos Unit Number [id number] Status Information Transfused Product ID Red Blood Cells Product Code [id number] Normal [facility] Comment on above: Performed By: #### R UBIGG #### [facility] [address] [place] [address] Dr. Juan Antonio Ibarra CBC AUTO DIFFon 07-07-2022 BASO # 0.0 103/ul Normal 0.0-0.1 [facility] Comment on above: Performed By: #### A 1C #### [facility] [address] [place] [address] Dr. Juan Antonio Ibarra Basophils/100 WBC (Bld) 0.3 % Normal 0.2-2.0 [facility] Comment on above: Performed By: #### A 1C #### [facility] [address] [place] [address] Dr. Juan Antonio Ibarra EO # 0.1 103/ul Normal 0.0-0.7 [facility] Comment on above: Performed By: #### A 1C #### [facility] [address] [place] [address] Dr. Juan Antonio Ibarra Eosinophils/100 WBC (Bld) 0.9 % Normal 0.9-7.0 [facility] Comment on above: Performed By: #### A 1C #### [facility] [address] [place] [address] Dr. Juan Antonio Ibarra Erythrocyte distribution width (RBC) [Ratio] 14.5 % Normal 11.0-15.0 [facility] Comment on above: Performed By: #### A 1C #### [facility] [address] [place] [address] Dr. Juan Antonio Ibarra Hematocrit (Bld) [Volume fraction] 22.5 % Critically low 36.0-48.0 [facility] Comment on above: Performed By: #### A 1C #### [facility] [address] [place] [address] Dr. Juan Antonio Ibarra Hemoglobin (Bld) [Mass/Vol] 7.9 g/dL Critically low 12.0-16.0 [facility] Comment on above: Performed By: #### A 1C #### [facility] [address] [place] [address] Dr. Juan Antonio Ibarra IG # 0.10 10e3/ul Critically high 0.00-0.03 [facility] Comment on above: Performed By: #### A 1C #### [facility] [address] [place] [address] Dr. Juan Antonio Ibarra IG % 0.9 % Critically high 0.0-0.5 [facility] Comment on above: Performed By: #### A 1C #### [facility] [address] [place] [address] Dr. Juan Antonio Ibarra LYMPH # 1.6 103/ul Normal 1.2-3.8 [facility] Comment on above: Performed By: #### A 1C #### [facility] [address] [place] [address] Dr. Juan Antonio Ibarra Lymphocytes/100 WBC (Bld) 14.0 % Critically low 20.5-60.0 [facility] Comment on above: Performed By: #### A 1C #### [facility] [address] [place] [address] Dr. Juan Antonio Ibarra MANUAL DIFF REQ NO Normal [facility] Comment on above: Performed By: #### A 1C #### [facility] [address] [place] [address] Dr. Juan Antonio Ibarra MCH (RBC) [Entitic mass] 26.4 pg Critically low 26.7-34.0 [facility] Comment on above: Performed By: #### A 1C #### [facility] [address] [place] [address] Dr. Juan Antonio Ibarra MCHC (RBC) [Mass/Vol] 35.1 g/dL Normal 29.9-35.2 [facility] Comment on above: Performed By: #### A 1C #### [facility] [address] [place] [address] Dr. Juan Antonio Ibarra MCV (RBC) [Entitic vol] 75.3 fL Critically low 81.0-99.0 [facility] Comment on above: Performed By: #### A 1C #### [facility] [address] [place] [address] Dr. Juan Antonio Ibarra MONO # 0.7 103/ul Normal 0.3-0.8 [facility] Comment on above: Performed By: #### A 1C #### [facility] [address] [place] [address] Dr. Juan Antonio Ibarra Monocytes/100 WBC (Bld) 6.2 % Normal 1.7-12.0 [facility] Comment on above: Performed By: #### A 1C #### [facility] [address] [place] [address] Dr. Juan Antonio Ibarra NEUT # 9.1 103/ul Critically high 1.4-6.5 [facility] Comment on above: Performed By: #### A 1C #### [facility] [address] [place] [address] Dr. Juan Antonio Ibarra Neutrophils/100 WBC (Bld) 77.7 % Critically high 43.0-75.0 [facility] Comment on above: Performed By: #### A 1C #### [facility] [address] [place] [address] Dr. Juan Antonio Ibarra Platelet mean volume (Bld) [Entitic vol] 9.2 fL Critically low 9.5-13.5 [facility] Comment on above: Performed By: #### A 1C #### [facility] [address] [place] [address] Dr. Juan Antonio Ibarra PLT 143 103/ul Critically low 150-450 [facility] Comment on above: Performed By: #### A 1C #### [facility] [address] [place] [address] Dr. Juan Antonio Ibarra RBC 2.99 106/ul Critically low 4.20-5.40 [facility] Comment on above: Performed By: #### A 1C #### [facility] [address] [place] [address] Dr. Juan Antonio Ibarra WBC 11.7 103/ul Critically high 4.0-11.0 [facility] Comment on above: Performed By: #### A 1C #### [facility] [address] [place] [address] Dr. Juan Antonio Ibarra CBC AUTO DIFFon 07-06-2022 BASO # 0.0 103/ul Normal 0.0-0.1 [facility] Comment on above: Performed By: #### A 1C #### [facility] [address] [place] [address] Dr. Juan Antonio Ibarra Basophils/100 WBC (Bld) 0.3 % Normal 0.2-2.0 [facility] Comment on above: Performed By: #### A 1C #### [facility] [address] [place] [address] Dr. Juan Antonio Ibarra EO # 0.1 103/ul Normal 0.0-0.7 [facility] Comment on above: Performed By: #### A 1C #### [facility] [address] [place] [address] Dr. Juan Antonio Ibarra Eosinophils/100 WBC (Bld) 0.8 % Critically low 0.9-7.0 [facility] Comment on above: Performed By: #### A 1C #### [facility] [address] [place] [address] Dr. Juan Antonio Ibarra Erythrocyte distribution width (RBC) [Ratio] 14.3 % Normal 11.0-15.0 [facility] Comment on above: Performed By: #### A 1C #### [facility] [address] [place] [address] Dr. Juan Antonio Ibarra Hematocrit (Bld) [Volume fraction] 23.0 % Critically low 36.0-48.0 [facility] Comment on above: Performed By: #### A 1C #### [facility] [address] [place] [address] Dr. Juan Antonio Ibarra Hemoglobin (Bld) [Mass/Vol] 7.5 g/dL Critically low 12.0-16.0 [facility] Comment on above: Performed By: #### A 1C #### [facility] [address] [place] [address] Dr. Juan Antonio Ibarra IG # 0.07 10e3/ul Critically high 0.00-0.03 [facility] Comment on above: Performed By: #### A 1C #### [facility] [address] [place] [address] Dr. Juan Antonio Ibarra IG % 0.6 % Critically high 0.0-0.5 [facility] Comment on above: Performed By: #### A 1C #### [facility] [address] [place] [address] Dr. Juan Antonio Ibarra LYMPH # 2.1 103/ul Normal 1.2-3.8 [facility] Comment on above: Performed By: #### A 1C #### [facility] [address] [place] [address] Dr. Juan Antonio Ibarra Lymphocytes/100 WBC (Bld) 18.8 % Critically low 20.5-60.0 [facility] Comment on above: Performed By: #### A 1C #### [facility] [address] [place] [address] Dr. Juan Antonio Ibarra MANUAL DIFF REQ NO Normal [facility] Comment on above: Performed By: #### A 1C #### [facility] [address] [place] [address] Dr. Juan Antonio Ibarra MCH (RBC) [Entitic mass] 26.0 pg Critically low 26.7-34.0 [facility] Comment on above: Performed By: #### A 1C #### [facility] [address] [place] [address] Dr. Juan Antonio Ibarra MCHC (RBC) [Mass/Vol] 32.6 g/dL Normal 29.9-35.2 [facility] Comment on above: Performed By: #### A 1C #### [facility] [address] [place] [address] Dr. Juan Antonio Ibarra MCV (RBC) [Entitic vol] 79.9 fL Critically low 81.0-99.0 [facility] Comment on above: Performed By: #### A 1C #### [facility] [address] [place] [address] Dr. Juan Antonio Ibarra MONO # 0.7 103/ul Normal 0.3-0.8 [facility] Comment on above: Performed By: #### A 1C #### [facility] [address] [place] [address] Dr. Juan Antonio Ibarra Monocytes/100 WBC (Bld) 6.6 % Normal 1.7-12.0 [facility] Comment on above: Performed By: #### A 1C #### [facility] [address] [address] [address] Juan Antonio Ibarra NEUT # 8.2 103/ul Critically high 1.4-6.5 [facility] Comment on above: Performed By: #### A 1C #### [facility] [address] [place] [address] Dr. Juan Antonio Ibarra Neutrophils/100 WBC (Bld) 72.9 % Normal 43.0-75.0 [facility] Comment on above: Performed By: #### A 1C #### [facility] [address] [place] [address] Dr. Juan Antonio Ibarra Platelet mean volume (Bld) [Entitic vol] 9.8 fL Normal 9.5-13.5 [facility] Comment on above: Performed By: #### A 1C #### [facility] [address] [place] [address] Dr. Juan Antonio Ibarra PLT 151 103/ul Normal 150-450 [facility] Comment on above: Performed By: #### A 1C #### [facility] [address] [place] [address] Dr. Juan Antonio Ibarra RBC 2.88 106/ul Critically low 4.20-5.40 [facility] Comment on above: Performed By: #### A 1C #### [facility] [address] [place] [address] Dr. Juan Antonio Ibarra WBC 11.3 103/ul Critically high 4.0-11.0 [facility] Comment on above: Performed By: #### A 1C #### [facility] [address] [place] [address] Dr. Juan Antonio Ibarra CBC AUTO DIFFon 07-05-2022 BASO # 0.0 103/ul Normal 0.0-0.1 [facility] Comment on above: Performed By: #### R PRQ #### [facility] [address] [address] [address] Juan Antonio Ibarra Basophils/100 WBC (Bld) 0.2 % Normal 0.2-2.0 [facility] Comment on above: Performed By: #### R PRQ #### [facility] [address] [place] [address] Dr. Juan Antonio Ibarra EO # 0.0 103/ul Normal 0.0-0.7 [facility] Comment on above: Performed By: #### R PRQ #### [facility] [address] [place] [address] Dr. Juan Antonio Ibarra Eosinophils/100 WBC (Bld) 0.4 % Critically low 0.9-7.0 [facility] Comment on above: Performed By: #### R PRQ #### [facility] [address] [place] [address] Dr. Juan Antonio Ibarra Erythrocyte distribution width (RBC) [Ratio] 14.2 % Normal 11.0-15.0 [facility] Comment on above: Performed By: #### R PRQ #### [facility] [address] [place] [address] Dr. Juan Antonio Ibarra Hematocrit (Bld) [Volume fraction] 31.0 % Critically low 36.0-48.0 [facility] Comment on above: Performed By: #### R PRQ #### [facility] [address] [place] [address] Dr. Juan Antonio Ibarra Hemoglobin (Bld) [Mass/Vol] 10.1 g/dL Critically low 12.0-16.0 [facility] Comment on above: Performed By: #### R PRQ #### [facility] [address] [place] [address] Dr. Juan Antonio Ibarra IG # 0.10 10e3/ul Critically high 0.00-0.03 [facility] Comment on above: Performed By: #### R PRQ #### [facility] [address] [place] [address] Dr. Juan Antonio Ibarra IG % 1.1 % Critically high 0.0-0.5 [facility] Comment on above: Performed By: #### R PRQ #### [facility] [address] [place] [address] Dr. Juan Antonio Ibarra LYMPH # 1.6 103/ul Normal 1.2-3.8 [facility] Comment on above: Performed By: #### R PRQ #### [facility] [address] [address] [address] Juan Antonio Ibarra Lymphocytes/100 WBC (Bld) 17.5 % Critically low 20.5-60.0 [facility] Comment on above: Performed By: #### R PRQ #### [facility] [address] [place] [address] Dr. Juan Antonio Ibarra MANUAL DIFF REQ NO Normal [facility] Comment on above: Performed By: #### R PRQ #### [facility] [address] [place] [address] Dr. Juan Antonio Ibarra MCH (RBC) [Entitic mass] 25.8 pg Critically low 26.7-34.0 [facility] Comment on above: Performed By: #### R PRQ #### [facility] [address] [place] [address] Dr. Juan Antonio Ibarra MCHC (RBC) [Mass/Vol] 32.6 g/dL Normal 29.9-35.2 [facility] Comment on above: Performed By: #### R PRQ #### [facility] [address] [place] [address] Dr. Juan Antonio Ibarra MCV (RBC) [Entitic vol] 79.3 fL Critically low 81.0-99.0 [facility] Comment on above: Performed By: #### R PRQ #### [facility] [address] [place] [address] Dr. Juan Antonio Ibarra MONO # 0.7 103/ul Normal 0.3-0.8 [facility] Comment on above: Performed By: #### R PRQ #### [facility] [address] [place] [address] Dr. Juan Antonio Ibarra Monocytes/100 WBC (Bld) 8.1 % Normal 1.7-12.0 [facility] Comment on above: Performed By: #### R PRQ #### [facility] [address] [place] [address] Dr. Juan Antonio Ibarra NEUT # 6.7 103/ul Critically high 1.4-6.5 [facility] Comment on above: Performed By: #### R PRQ #### [facility] [address] [place] [address] Dr. Juan Antonio Ibarra Neutrophils/100 WBC (Bld) 72.7 % Normal 43.0-75.0 [facility] Comment on above: Performed By: #### R PRQ #### [facility] [address] [place] [address] Dr. Juan Antonio Ibarra Platelet mean volume (Bld) [Entitic vol] 10.1 fL Normal 9.5-13.5 [facility] Comment on above: Performed By: #### R PRQ #### [facility] [address] [place] [address] Dr. Juan Antonio Ibarra PLT 202 103/ul Normal 150-450 [facility] Comment on above: Performed By: #### R PRQ #### [facility] [address] [place] [address] Dr. Juan Antonio Ibarra RBC 3.91 106/ul Critically low 4.20-5.40 [facility] Comment on above: Performed By: #### R PRQ #### [facility] [address] [place] [address] Dr. Juan Antonio Ibarra WBC 9.2 103/ul Normal 4.0-11.0 [facility] Comment on above: Performed By: #### R PRQ #### [facility] [address] [place] [address] Dr. Juan Antonio Ibarra DRUG SCREEN RAPID (URINE)on 07-05-2022 AMP Negative Normal NEGATIVE [facility] Comment on above: Performed By: #### A 1C #### [facility] [address] [place] [address] Dr. Juan Antonio Ibarra BAR Negative Normal NEGATIVE [facility] Comment on above: Performed By: #### A 1C #### [facility] [address] [place] [address] Dr. Juan Antonio Ibarra BUP Negative Normal NEGATIVE [facility] Comment on above: Performed By: #### A 1C #### [facility] [address] [place] [address] Dr. Juan Antonio Ibarra BZO Negative Normal NEGATIVE [facility] Comment on above: Performed By: #### A 1C #### [facility] [address] [place] [address] Dr. Juan Antonio Ibarra PARAM Negative Normal NEGATIVE [facility] Comment on above: Performed By: #### A 1C #### [facility] [address] [place] [address] Dr. Juan Antonio Ibarra CUT-OFFS SEE BELOW Normal [facility] Comment on above: Result Comment: AMP [...] Performed By: #### A 1C #### [facility] [address] [place] [address] Dr. Juan Antonio Ibarra DRUG CUT HEADER DRUG CLASS TEST SYST EM CUT-OFF CONCENTRATIONS ARE FOLLOWS: Normal [facility] Comment on above: Performed By: #### A 1C #### [facility] [address] [place] [address] Dr. Juan Antonio Ibarra mAMP Negative Normal NEGATIVE [facility] Comment on above: Performed By: #### A 1C #### [facility] [address] [place] [address] Dr. Juan Antonio Ibarra MTD Negative Normal NEGATIVE [facility] Comment on above: Performed By: #### A 1C #### [facility] [address] [place] [address] Dr. Juan Antonio Ibarra OPI Negative Normal NEGATIVE [facility] Comment on above: Performed By: #### A 1C #### [facility] [address] [place] [address] Dr. Juan Antonio Ibarra OXY Negative Normal NEGATIVE [facility] Comment on above: Performed By: #### A 1C #### [facility] [address] [place] [address] Dr. Juan Antonio Ibarra PCP Negative Normal NEGATIVE [facility] Comment on above: Performed By: #### A 1C #### [facility] [address] [place] [address] Dr. Juan Antonio Ibarra PPX Negative Normal NEGATIVE [facility] Comment on above: Performed By: #### A 1C #### [facility] [address] [place] [address] Dr. Juan Antonio Ibarra TCA Negative Normal NEGATIVE [facility] Comment on above: Performed By: #### A 1C #### [facility] [address] [place] [address] Dr. Juan Antonio Ibarra THC Negative Normal NEGATIVE [facility] Comment on above: Performed By: #### A 1C #### [facility] [address] [place] [address] Dr. Juan Antonio Ibarra TYPE AND SCREENon 07-05-2022 TYPE AND SCREEN Negative Normal [facility] Comment on above: Performed By: #### T NS #### [facility] [address] [place] [address] Dr. Juan Antonio Ibarra US PREG BIOPHY [...] by: FELECIA GOLDMAN Date: 2022-06-28 15:29 Normal [facility] US PREG BIOPHY W NON STRESSo [...] by: FELECIA GOLDMAN Date: 2022-06-21 17:20 Normal [facility] US PREG GROWTHon 06-21-2022 US PREG [...] by: GAMALIEL CRUMP Date: 2022-06-21 13:37 Normal [facility] CULTURE URINEon 06-16-2022 CULTURE URINE Culture Observations : LIGHT GROWTH OF MIXED GENITAL ALONSO. NO POTENTIAL PATHOGENS SEEN. Normal [facility] Comment on above: Performed By: #### U RCX #### [facility] [address] [place] [address] Dr. Juan Antonio Ibarra UA (CLEAN/CATCH) STUDENT UNION CONSULTANT/MICRO I F IND.on 06-16-2022 Bilirubin Ql (U) Negative Normal NEGATIVE [facility] Comment on above: Performed By: #### U MICRO, UACSIND #### [facility] [address] [place] [address] Dr. Juan Antonio Ibarra Clarity (U) CLEAR Normal CLEAR [facility] Comment on above: Performed By: #### U MICRO, UACSIND #### [facility] [address] [place] [address] Dr. Juan Antonio Ibarra Color (U) LT. YELLOW Normal YELLOW [facility] Comment on above: Performed By: #### U MICRO, UACSIND #### [facility] [address] [place] [address] Dr. Juan Antonio Ibarra Glucose Ql (U) Negative Normal NEGATIVE [facility] Comment on above: Performed By: #### U MICRO, UACSIND #### [facility] [address] [place] [address] Dr. Juan Antonio Ibarra Hemoglobin Ql (U) Negative Normal NEGATIVE [facility] Comment on above: Performed By: #### U MICRO, UACSIND #### [facility] [address] [place] [address] Dr. Juan Antonio Ibarra Ketones Ql (U) Negative Normal NEGATIVE [facility] Comment on above: Performed By: #### U MICRO, UACSIND #### [facility] [address] [place] [address] Dr. Juan Antonio Ibarra LEUKOCYTES MODERATE Abnormal NEGATIVE [facility] Comment on above: Performed By: #### U MICRO, UACSIND #### [facility] [address] [place] [address] Dr. Juan Antonio Ibarra Nitrite Ql (U) Negative Normal NEGATIVE [facility] Comment on above: Performed By: #### U MICRO, UACSIND #### [facility] [address] [place] [address] Dr. Juan Antonio Ibarra pH (U) 6.0 [pH] Normal 5-9 [facility] Comment on above: Performed By: #### U MICRO, UACSIND #### [facility] [address] [place] [address] Dr. Juan Antonio Ibarra SPEC GRAVITY 1.020 Normal 1.005-<=1. 025 [facility] Comment on above: Performed By: #### U MICRO, UACSIND #### [facility] [address] [place] [address] Dr. Juan Antonio Ibarra UA PROTEIN Negative Normal NEGATIVE/ TRACE [facility] Comment on above: Performed By: #### U MICRO, UACSIND #### [facility] [address] [place] [address] Dr. Juan Antonio Ibarra UR MICRO IND INDICATED Normal [facility] Comment on above: Performed By: #### U MICRO, UACSIND #### [facility] [address] [place] [address] Dr. Juan Antonio Ibarra Urobilinogen Qn (U) 1.0 {Pamela'U}/dL Normal 0.2 - 1. 0 [facility] Comment on above: Performed By: #### U MICRO, UACSIND #### [facility] [address] [place] [address] Dr. Juan Antonio Ibarra URINE MICROSCOPIC ONLYon BACTERIA SMALL Abnormal NONE SEEN [facility] Comment on above: Performed By: #### U MICRO, UACSIND #### [facility] [address] [place] [address] Dr. Juan Antonio Ibarra Bacteria identified Cx Nom (U) INDICATED Normal [facility] Comment on above: Performed By: #### U MICRO, UACSIND #### [facility] [address] [place] [address] Dr. Juan Antonio Ibarra CAST NONE SEEN Normal NONE SEEN [facility] Comment on above: Performed By: #### U MICRO, UACSIND #### [facility] [address] [place] [address] Dr. Juan Antonio Ibarra Crystals LM Nom (Urine sed) NONE SEEN Normal NONE SEEN [facility] Comment on above: Performed By: #### U MICRO, UACSIND #### [facility] [address] [place] [address] Dr. Juan Antonio Ibarra Epithelial cells LM Ql (Urine sed) RARE Normal NONE SEEN /RARE [facility] Comment on above: Performed By: #### U MICRO, UACSIND #### [facility] [address] [place] [address] Dr. Juan Antonio Ibarra MUCOUS NONE SEEN Normal NONE SEEN [facility] Comment on above: Performed By: #### U MICRO, UACSIND #### [facility] [address] [place] [address] Dr. Juan Antonio Ibarra RBC NONE SEEN Abnormal 0-2 [facility] Comment on above: Performed By: #### U MICRO, UACSIND #### [facility] [address] [place] [address] Dr. Juan Antonio Ibarra WBC 2-5 Abnormal NONE SEEN [facility] Comment on above: Performed By: #### U MICRO, UACSIND #### [facility] [address] [place] [address] Dr. Juan Antonio Ibarra GROUP B STREP CULTUREon 05-18 S. agalactiae Ag Ql (Unsp spec) Culture Observations: NEGATIVE FOR GROUP B STREPTOCOCCUS. Normal [facility] Comment on above: Performed By: #### G BSCX #### [facility] [address] [place] [address] Dr. Juan Antonio Ibarra US PREG BIOPHY [...] GAMALIEL CRUMP Date: 2022-06-14 16:10 Normal [facility] US PREG BIOPHY W NON STRESSo [...] by: FELECIA GOLDMAN Date: 2022-06-07 16:42 Normal [facility] PREG BIOPHY W NON STRESSo n 06-04-2022 [...] by: FELECIA GOLDMAN Date: 2022-06-04 17:11 Normal [facility] US PREG BIOPHY W NON STRESS [...] by: FELECIA GOLDMAN Date: 2022-06-04 16:23 Normal [facility] US PREG BIOPHY W NON STRESSo [...] by: GAMALIEL CRUMP Date: 2022-05-31 18:39 Normal [facility] US PREG BIOPHY W NON STRESSo [...] by: FELECIA GOLDMAN Date: 2022-05-24 16:34 Normal [facility] US PREG GROWTHon 05-24-2022 US PREG [...] by: FELECIA GOLDMAN Date: 2022-05-24 16:33 Normal [facility] GLUCOSE - 1HRon 10-19-2022 Glucose [Mass/Vol] 101 mg/dL Normal 74-106 [facility] Comment on above: Performed By: #### R PRQ #### [facility] [address] [place] [address] Dr. Juan Antonio Ibarra HEMOGRAM AND PLATELon 2021 Hematocrit (Bld) [Volume fraction] 33.5 % Critically low 36.0-48.0 [facility] Comment on above: Performed By: #### A 1C #### [facility] [address] [place] [address] Dr. Juan Antonio Ibarra Hemoglobin (Bld) [Mass/Vol] 10.7 g/dL Critically low 12.0-16.0 [facility] Comment on above: Performed By: #### A 1C #### [facility] [address] [place] [address] Dr. Juan Antonio Ibarra MCH (RBC) [Entitic mass] 29.3 pg Normal 26.7-34.0 [facility] Comment on above: Performed By: #### A 1C #### [facility] [address] [place] [address] Dr. Juan Antonio Ibarra MCHC (RBC) [Mass/Vol] 31.9 g/dL Normal 29.9-35.2 [facility] Comment on above: Performed By: #### A 1C #### [facility] [address] [place] [address] Dr. Juan Antonio Ibarra MCV (RBC) [Entitic vol] 91.8 fL Normal 81.0-99.0 [facility] Comment on above: Performed By: #### A 1C #### [facility] [address] [place] [address] Dr. Juan Anotnio Ibarra PLT 179 103/ul Normal 150-450 [facility] Comment on above: Performed By: #### A 1C #### [facility] [address] [place] [address] Dr. Juan Antonio Ibarra RBC 3.65 106/ul Critically low 4.20-5.40 [facility] Comment on above: Performed By: #### A 1C #### [facility] [address] [place], [place] [address] Dr. Juan Antonio Ibarra WBC 9.9 103/ul Normal 4.0-11.0 [facility] Comment on above: Performed By: #### A 1C #### [facility] [address] [place], [place] [address] Dr. Juan Antonio Ibarra US PREG REEVAL [...] GOLDMAN Date: 2022-03-20 20:55 Normal [facility] US PREG ANATOMY SINGLEon US PREG [...] FELECIA GOLDMAN Date: 2022-02-22 16:46 Normal [facility] Coding Summaryon 02-14-2022 Coding Summary HTMLBase 64 VjifsojtQVk9rIm+PGhlYWQ+PE 9UPDYiT97mtSEfaE0EG3kNNA8X XIMHLGNWXT1ULU2wxVC2GOifW3 VybiAv FytwtCRzVY95PXn5YKJ3uNspVL hueX8qkIObE4d1OvIxOW44gD16 SCdwSJUlQaZ7CaQwikmlwSDs Q2oeLfEyjLMnIdi+PHRhYmxlIH osUNMdMDigXCKzIsBcrJagFD5b Kh4eHSLaHAOtdHtbvXDcUwAj l2evUTNeKLmaKQ7biNbuS6PshL C2TYYin1n2No39wNS+PHRkIHN0 bUfmNRofr350FtTwl3vyJBS2 yHAzMXvxMYC0U20cg8V1XSHcFM QaPDN1zVU1fU4afKbsrjxpL4Bq vRKdOuR3FPW8rCXirJ4beDao pglobT3aHmn+O50UUU3MAUAXPC 8JMjv2P7GuPnqhyML+GC33CYJk ZW64wTVsqZLtw1yisOz1FwDf ACWlSKO4mWxwHMwqh2InMMOmP1 7naRBrx6O8BLYfwZzxtETrVtVj qPE6nO6rLNvajaupb5toxqow Krjjs6xkea53vB40G01kWVfuKH DbCKR1BDQzPLExrYuawy2yzX6n Ii8+CEoat5vmg1dsnHx8OyUv XJQcmoHpbJbtECS1w5MvGb50O8 NqhRavi3OzNmr3br86fWMtz0I1 oNU6WLosQAQusK4aQSgqNgW6 AZMgIiWkgP52eJBeWNkrIv9umC bhhTdiMY6zSIEnqkipVBRzbQ1h LUQncQWneVjcGM3aEGRyoagj e116NyDyEJW0QPEcbQTzH0VirY 3nTwCfSTSvGZAjY1EdzUEqBGep E875ZGppYuW4WBAkpkDqG8Dj ZPQszQzqMaM9t1S2Be9Vt4Ylaf pgBDE4PFnmPGE3AxBjQjGpOvH7 R7BiIpx7LMNpvSvuKT3gC4So MPJrsxfyusasoDI1GMDaYFAopL 76vRWhNErnMs6bc8G1b399AHPw WZRlzR60Jq4ydHmyETTmsUMW yN7gmyfgr6zodbovXxAyBKLdCO y1ILj7ILKzuGmoUpBkJUN5WiZ9 UNJ7xUSpbA8baTjaztqlrX3r Oyc+D04nkS8qVFZ9NUW6dxqzFP DfloKfEZ38QI37F5QsNcoocCSh bGU+CYHcmnCahDppHW0yCyJl w2bor8TvPVdhM2HcROQhNOllZm w2PXWvCGM1jUX1zK6eBOZpNHwn z9P6sJC9N3EhixBisq9nd9yg VLRtAOkgM58jaTJjk2V0VAGfuG W8MOIlyLdbVmLdfB26Bgu+PGNv kFotl5IaIsddu5qwt1sefKo2 SjBnMBHsdiTklKehNYE8z9YtVl 50K97mTTniCNUcJNNwYGUwEKLm fEwtjf9xyT8qGz4+PGNvbCB3 eEC1zQ8yXIJcElP1HMzcP562Qw LgjCHsYkifb5wjp1dpwKb2RnRy PEVqfuQnhQirTPR6r6XaJm15 R02sRAwpILOxLEZqMACwCVPynM znzn2ucG4xHg2+ET2zx1uvby52 kZ16hPE+LWOsIJY9vNrzGKli TGJsgT1nQZedJzD7MINzGsSbpV 06dZHgISgjQa2oqTawlNixXD8l GZMqjcqjl755GaRhh1rhJERv mMVmDGoqZUR4N80yc1H0NLRnNG XuHYR0yJE1nT5fmMbreaihhXWb lXpenmPmhCkbUJxvCQsjQ646 IHRvcDsnPlBhdGllbnQgTmFtZT c5O1RyTen9YUTlmWvwVB0izVFa DAwuSs6pdBfblSrvDK7xHLMe vjsyy648TjWtu6erVKTfqJRcZO zbUND7A50ar6T4FPIqNLQbLUE3 dSQ7zX3wgLysjqdioJGbsSgi jkRlgNkoUIxyRLglX272APBbvF zgKmBnocIuSNAhnWB4NZ83HK48 yVLcv5E0lJF1A4HpECXpmlko gpltrKV8XLJjRBHfmN24Cy5lxO qzZx3eKEIzCJJ9XBGkeQQvI3Gi fE4cFxAxQJWaHRDkX3YwgCUl YCrwK896ITpjNgM1ODVtxaWgQ0 KdQLCqjKunSfY1m9S0Tu1GO1Q0 QE44TL20yFOli9E4iYF3D8Hg XVImvqplajovjBR7KYIiNFVmcQ 34Oy3lnBgrRi4oATQjMGZ4EECs yVSjK5QzqW5jAxFwSCWgEIKp A5YdxMLnNRvcX830QOanXdP6VV CvrdPlC7CtXDOjoVgcTlN4x1E0 Ky0NRSs8AM75EA41sJOnq8P6 jWK7E5EnLBKgojqbhxgonAR4YY GuXEGcfZ39En7smMhbGy8dQZGl IPO7ESCmsYTjV4YcpX6pNuQz WACdEQEgY3YjrVSbOMrkK631ED tkKhR3FLAditGsX1QnATKuaYdf ZnB9r0R5Cf9YQCBqBP75NNS6 zRG6YI69WI91E9EaVzgtmDVbiD U+PHRhYmxlIHdpZHRoPScxMDAl OhLhxBhyXJ3pQl6uEEApBDIf eHfnjYIwLgNwq2bwHBZvWBrkFL 0vvAhkD3IazPR2TXSyg2h1Zs74 P59cZ0TgnEB+IIVcoEQ5oHF0 cH0vSfKbLwF8ZJyaL727MmPplL FuRtpuz0wyc1bhvSv9OyO2HDAi vwIqrYesPEA3t4WbPq84R95m IHdpZHRoPSIxNSUiIHZhbGlnbj 3epG0sYy4+PCHpkNK4gLD1zW5k HrDiJgI5HGutQ386LxLsgHXm Rhnff2qsw3vofWs3QpZyXYOdis ZsvRiwVZJ3p3LmZt34L5JqlYev v5JfSqx6za36sWYtt2I7mEW6 C9VyJVXuwfhptUXokHpuJF0cDD OvoswaUVCzhX6nWPSiT5e4NmWv XaN8QWqcV5LlqrW7XOOmqPKw PZgcKBY7W12fn7E7CNBxWWUqND G1gGJ9oW5ivUetegfmzNXldYoe iaAmrSoxIJgeCWltH273MUFg dXojRRJtoS4lMIOuzNSqxJocMS 4wNTBpbjsnPlNURUlOLCBWSVJH YZ0JVWGFPDA7O3YrGgo0XVMy zXzeQY8wdOOtJMrkYw2ehPtuqY rmXD6bBOHwghgkATIatF2cMBJf uJZjkFqfOZ1tQKYowsuff021 XoYqKEU9FUBzsDLxN0RbiS2pHb KuOREeMAXmC0GjoEJeCNydI844 HBkdVwD4UXFwckCvZ6BlYTAq pFugLfL6w5B7Ep9bDH0vBL4qON pjYE40LY54qOCoq6U6aPG4H6Fw AVRxgnxybofjuOA9LMXzEJHa aY55bJLgLXznCr5jc1L3d719KC KtWJOahN78Je1hsQhyNVGypIBM rW5pdctha1edwchlImNlVIMe LVf8YSw1MBPwkQvmKlBtGQY8Wi U8UAD1fKOfkF7aiHlffgysfZ7d Oyc+RerfBJLrviD3N8KkDjq8 IDRanCcpLQ3jtRImMCbkAf1wxG gwkXmmHZ4gTNSalffmKBXieS1u UBNmqGVoeXtwPC7pBRPasfsq e265VfBdVDC3WEKuvZXnX7GdxG 2jQfDtRRQuNGXcS6LvvPDwUYgh X248VCctAxZ9XSRyidZwU1He UUAjpEmfKbW8k9I8Jc4PKO8ZYT Z3E4PuVrb0QCDonHoqXD3xwPUp SIdrAh1joEtriLwkWJ3vMFAq krjqEJEjkB1yWCDigSQbwSshEQ 9aYHYuvoonj390SiHeMNH2SWGh hFNpQ8VbzM8wGbUrDAAsVESt K4CqhQPzRPllB316AMvpQgC1ZG LvkuBdJ3WdUYHjvBprAnE9v5O5 Ic0KVImvyJS+DC47xg40K7Hn SuuyUiy6ZKDxUZE0hZE7fD2gBH ErRHdok0P5rQH7F1PzqtHxio8i w4mpWCKaLNcmP51bbQEmh2K3 WIFxzFP6OASseOciQnPebL19Uv c+EHUbdKvyy0HsNquos1jkk0qd lVe0XwViXETphdKnbKflNTO7 q7MgBm42G17sQTenZTYwWWOgIO TdYNHynKpvox8vxY9aOq8+PGNv hHN4jYK1zE7mQeMtTgP6CSfe M894RuGqtLKzQvkbi8moj5pjpU i9YiBeZCTlsmYvfPqlJPZ0c0Wz Fd93V3ZcsRwbd9PoTli7lk57 cLPtt5X7cTG1Z2GwUMLqfejelA HpeLsmEO6zJLVwbpseVMRknG7c QWVfC2d5ObQfLyY8MFooU0Dp dmR8JEGuwZKvTICoyFOKdF4oot uav7mffgewQfTgKKOiMWx2XQt6 RAYyuXtsEcAbOXU3FcJ1FQP4 rXTvuG9jqGwovwkzaG0rSgb+UG a8i0zkbEGvPZ2peUW0XP01VK30 vEFfx1O5qUH4Z9EfVQHlvpyh wcszwJN7PIKvTGWsxP00Cg8diU mdOe9kJLLzXIV2DTQzaVLvO2Ot bL6hVxCqUMYdVZCkW3JwqJBa QSagP831KNgnVrL1IXGziwXjV1 FxQHXlhUobQjF3e4F2Ip8TQA89 HR44JE95eIGtn1S8bNY5C2Ir TFSucfgemfiitZA2ULTwOPAycC 44Kk8ifCeoBo2xXKVbLJZ4SUFy dRNbW7IpeN9lUoCdMWTiSWAw X9HzeWJgTKrbC737UBhuRqW6EP JgeuTrH3UhKHBjhGorFyZ2c5C6 Cc4GDv34FU99YV52nVNzy7U0 bLN8Q6RxMXJbqcoqzheehHT9VX EdYRTsdA60Ua0frYmoVf4mNAHb UZW8KGPvbVNaC8IvoA5xWaXl RZHrWGYeW9TeaAKwZYjbZ608QQ axFzJ0GNSrdxMzY1YnQZQalCoq NkF1x8U5Hp4BGSczokh8O0Ff PjwvdHI+QW13JOPwMA99uVQbbY Pxv8lblWt6JuJyXMDrCYQ6yKnt UDymp4YcAIZoE61ypYLfq4F9 IGN (more content not included)... [facility] Coding Summary HTMLBase 64 MhkvqtzdOAc3bOr+PGhlYWQ+PE 9ARZKzE70kzYCfvJ2NO6rJNH7I TRPVHISOOA6UON4kjKB2AFexS3 VybiAv RpotvXVxYN48BIt9EIV0wWcuAM iriP4jgWDbA3u3LnMjKN70gG38 YStlDYXfDnE8KjJsjfcwbTRa H0boNpPwbDGrGmi+PHRhYmxlIH ruUGFnPEpgQDXfCjXvdKdqJU5j Nl1gEZBgLHYaqKschDZfVuBd r4utXNPiJFtqVY2qkArdS8SicR S7SCMqm4a2Lp86qJW+PHRkIHN0 kMblITclf094VdOkz1nzYMB0 sXAoPUvaHNR4G27ow7O3JHCaZK ZrOTT5wEA6lC9jlDnpbwfuV5Hu uAJqCmF6CRN5dIWmbJ5reGnx jmeqkY4xUnt+J40RTV2LDNNYTB 9UEnp1E7TnUjyhkGV+NC37ZMSt OH30gDVsyNAnx3kumBe6SyAe FXCxKEQ4oHznDBolt2XmGMIpV0 8qiTJet3Y9IDOtrYogjOZnFeCs lNM3fP5dDYjiuknbu9ddsqnj Beslo6ggxo68eN60I16qRDbgIY TqFTR5JIFkANDwpNmkmd4hkT8a Ii8+JBreu9zmi5naeLr0PfNf HKKfdzHptDqdJIG6n0XfEf15S8 HhuYqus6TmBlu3jp83aUNie7C2 aSI0MZiaARXpbA8mJYjgTuC7 TPViAlBapG77kTIwNKmhKt5mvF ixuNtwQL2sBBApyqqdZODmlX6z IHAtvNOluKvjMK0fCNGgigfw h124GtVcONO0OBPspGQiM6XhzM 4qKbFeAXUhNZSuN7SocPFaXFvh S184LWbzVoA0GNIptgSjK3Gi CRMktWiuQfH1w5W9Lu4Zm0Ejcr eyONM6JTqwSEV2WqQaZhJgSvU7 H9NaWjm4SUSwvErmOV6vK3Jz MYXbqemgdhtlqCK4LFGsBYYvdK 54uLQwQZgaEn3tu9A3b390BQWg SGUuyO44Gy1qcJlzKHWdoKOD bU0vmqdha7xvfsqvXdYbEYNjPS z2CXl7VESdsZeeVyWzVQU4ItF4 TTV5cMRaxT8pgYeedlawyC0c Oyc+T46ffP9dHBM5JJE7amscID HgsgFaBP31TX86F1GvZhieoDLp bGU+YUIlqbOxkAilHE7mReZe u6nbe7YoZYamD4NcLDPwRHduEe j1TCMyTRQ3yTL2xL4zYXRtQKrq g1W0zRG9M5MtjeBiuz4sc3gc UYFuNWkqM80ujVCqw9C7VLGxtE S7OAHboOhfGaNmvD81Dsv+PGNv lUjua2BrRmoxq6lnq5lfxDq0 IhGaQISydtKviDbfFIU1t3HwSs 90A92aJAvjSYPxJPVbGTWoQLFr jSqdvl9fuJ1rPq0+PGNvbCB3 cDW1qJ4qDFKrZlN7FYfuO415Sl QrgLPnCddkw5clz0yeyGu9VqXy SZBzetKvvBhqRUX5o2BoIa48 A28jZYptESCtMLFxMHEwQOLywO drgv7bqY1qAw6+OR6nv6iujg91 gJ01kAN+UQEzPGP6jCxoKTln PKKjeH7yCXvrYyM9QMMqQsRzqF 41uHFmNBgtKc5roJctgMowUK1a CCCctfhsh598UtObl1chKEWd vDZuJDqrQXJ3R68tc9U6SIHfAN XePQR8wYA0cN4hbZtnufnoxISi kAwpdcWeyDdpTLqtMMkgS420 IHRvcDsnPlBhdGllbnQgTmFtZT l6U3WaMlj2MILnuIdtYY4ofGTv CQjhEp8rmNhvfMpgPG6mVCFi lwdpa966IyWal7hgANLomWDnQG ujYSC6G54vh5B6YYTgZFDdMKK8 dTT0zZ1syHyesdgxnRQqmUol szIdeQnfNVndLSloK567KAIrdF hbQgPkipIyJFOfjBK6SE53NY88 zUPzs4G2zKI9Z2IsLDWjuhfr okbtuXP7NKBgQEPpzD66Tf9jbP lwMb6mPVWwITL2BJEphXYcY6Of hZ2lRgYzMEGdLYScP0TmrTXo RSfqT218NQryTlG9HNDhohHcV3 TqYSAmuJvyOwT5l2U8Ba9AH9Z3 XY75EN00aMJpt7X8aOB7J8Yu CMHhrvehijtgwBF7WVJoALValZ 40Ck4cyDttRn7eLBIeCFD9YNZv qIXwJ7AgwR4iXhXqZYVgHWPh S6MduLGuHCuwJ740NIfgBlZ7RM BrwmFxU5XjZSXbzNfsCjV9n0P3 Yq7NYUs8ZU66AL47yQWio8E4 wPH6R7PaGADmmqpywzlwfAB0EE DfFIKqzN88Up5wmJmvNb4zSTWw MPM5KYDuwNPaZ0EcjG9hJhVw BEWfMUHxO7LlfVLaCNyoB392KN hfYmM9WUQwpwNfO4ReVITdrEmp JtI9d7Q2Jh6CHGFiQH62FON0 rHU6UW08CM22R7UuEgvwmYZcdS U+PHRhYmxlIHdpZHRoPScxMDAl VdGydClbXW9xDu6nTEBtHOEg aEykfMOwFuQdn0zvUWTxFCypOR 1saYcnT4YacWG2JNKyj6d4Au44 N44oN1CmkPF+AIHvmAN1jDR2 aH0aVgRaQqX5XYwhM367AlIgtF NcBajng0bcy8xquJv5UjJ9WATl wdExpJpzJIZ7l0QtVo06O80e IHdpZHRoPSIxNSUiIHZhbGlnbj 3qlZ6wSz6+PRRpyGQ2zOA6mP5e ZjEpCxH0ITquO010YwSahGZy Itlpx9rxw5shzKo7TrLvRAIvkv KjoLzxFYQ0a6ThVl12K2WsdTis w6LcHtq2kw65mCExt8D3fAV8 J6CiDZAiyzxveEHgfTjnUO5iXN OjhtuqGVZshV5nERVxR5b4AaJg RqZ5OXyuF8AnqoH1PIFbvPPe KRhfIYT0I29iq6U6PNYpAQPrAG L0sKN0lV7raAlkwboigFFawKjt kuCsnWgcKZmlIOtdO098ZQRb jOrxUICsbJ7dQMEtnHYitWzpGT 4wNTBpbjsnPlNURUlOLCBWSVJH YT5MVFWCZKF1Z0UnWrr9YMMh dKokFG3kvLIlUJgxBg1qtUwqkT pnBE0fPCIdahqtDNEbfC2eRSQa uBEhhHplBI9hNFLfgrrmz278 WqBmRWZ0GRBukOKnL0SylI0zPl WjWIJwWGEqA8QwdDMzSUzdI937 JDaeXpE0VPBoziKgK9YbDBGh pKbdDcO7y9A0Ly3fUT4cEJ3qEM jvOU17BA99zDFuk1P0pZS7L7Go BPQkaampicltjHM9FYApJBSw mO33bFBeBSxrHe2hu5G6m566JP LyLOTkyO01Lh1zbEhzIXXcuMXK oG5cubmjb5tnvkdpEjNoVZYt MAz0RJq2KRIbgAqgDnHpAHF6Zo O5RSN8xBJdeR6ykQvjtpfqrI4f Oyc+EosjFMMmebX2M1ExItl7 SZOftSfxDX4bwEPeRZxvIy2xdP ojaZwxVN9iMUVyviaxTCZdyX3n WZGftAQalVnzOU1vOYDmligq z037YpWjRVP5AORdjREjN8AnlT 6wThTmXBFuRLXxI3TnzPFxCUmu V166TYzmAeZ2GYOpesAxS7Fe DRDjcXooXsJ7r8J2Xg1FPA2EMB X3O2WqSbi5JLAhrGxkSJ3xcMZt HOguDt2fhHpthYzdNN9zZNWy xpgqMQDnvH7rDOXzfEEgvZfyHN 2dPZZypyduz668LzDuQCH9BIIz mZKvZ1SeoN3oZdUbGWUmWENz U4AlwXPoVTziH865UUfmEpN2YE GroqXfE2PwHTBzyPdgCrD7p6K0 Yn3UwPDqH9MsX9t5E3HkAvti dHI+TB71HQOhFT37zQHarCVgy9 oafCy2TqAkVZQjBWQ5vPjqLGth t9YvKBDuJ25ykOSit2O4FPJk vReteJHvUiQoiLO1zV8qUEcviu mdc5jdaiorJzpac5iury42cV34 R43cXJdxPJVsFGBiJGAoODBs zQvpnr7fvM6nYf5+KPOgzAL8yS K3gQ7sCpWdMnB1RDpyH536AuUq iNTsUazoh5uua0tpdVn9NkVd BBIstrNaaXenFML8x7VcLl68N4 9sIHdpZHRoPSIyMCUiIHZhbGln yy6blT8bFv0+FH4kl0rjlw77 cX11bNM+PXAkFLE7sSqbARgfUK LktK1rSVbnSeB2USNyLyJxtW64 tSUhDSolQg6ftGcsnYdwHJ4i WMJbofmde790FnCqr1mmUHOenL VfQYnaXTG1R46am0Z3JTWlRYBd DWD7bRC0eP3arQilxezdeRPo sUqjydSxuWoxBVgtDKozN327VC OpfXdnNcZusZPkI4wvnlJBOU2r OjwvdGQ+VOIsRCD2sYqeWRlp YCFlhK9pLHWlL4a7WvKlYjU6AY rxL4VroxM6UQTizMBvDUOzbCSV dN9kykybc3qmmqzjFlAtQDAq YCs2BJe7JCAevTvvMoYtSFN5Lq Q6ZTU9dSJlgM7wnXllprgtxC1x Oyc+RklOOjwvdGQ+PHRkIHN0 uBdvRJmmZWGufR1lPMCgV0y7Ru BgJjZ6TWuhS8WxmlZ2BLUiuHMf SINweJOGmO9rlhuwi4bvemed XjIrKQEcUBu4GWr5WGSabMedLb RnWLZ9MgZ9ZAH0dUIliI0fjPrj rbhifX7kFhd+TVJOOjwvdGQ+ LFNjAUW5uBvjMTeiYURqzM2tCU ZjC5c4TpMlNxI3FAxsT2EsevX8 UBZxdQPwAGTmoLCUfV5ggpnq f6yjntavPzNzXTXtUJh5FHt1PJ XpjYwfFsPsQHR4OsA0ALW2aQGf cN8zkKwmzgpyhS4jFcs+UGF5 QUE4NO97IY19A2GoTnovaFLgiR U+PHRhYmxlIHdpZHRoPScxMDAl MtKspEafQS2zLo6sQBFyPWYm bGx (more content not included)... Normal [facility] CHLAMYDIA/GONOCOCCUS RAINER ( AB/URINE/PAPon 02-09-2022 Chlamydia trachomatis, RAINER Negative Normal Negative [facility] Comment on above: Performed By: #### R PRQ #### [facility] [address] [place] [address] Dr. Juan Antonio Ibarra Neisseria gonorrhoeae, RAINER Negative Normal Negative [facility] Comment on above: Performed By: #### R PRQ #### [facility] [address] [place] [address] Dr. Juan Antonio Ibarra AFP MATERNAL FOR SPINA BIFID Aon 02-08-2022 AFP MoM 1.41 Normal [facility] Comment on above: Performed By: #### A FPMAT #### [facility] [address] [place] [address] Dr. Juan Antonio Ibarra AFP Value 66.8 ng/mL Normal [facility] Comment on above: Performed By: #### A FPMAT #### [facility] [address] [address] [address] Juan Antonio Ibarra AFP, Serum for Spina Bifida Report Normal [facility] Comment on above: Performed By: #### A FPMAT #### [facility] [address] [address] [address] Juan Antonio Ibarra Comment Comment Normal [facility] Comment on above: Result Comment: Melchor Chaudhary, Ph.D., [facility] Director . References: Available Upon Request. . Multiples Of Median Cutoffs For AFP Elevations Briscoe 2.5 Black 2.8 IDD 2.0 Twins 4.5 Abbreviation Definitions IDD - Insulin Dep Diabetes OSBR - Open Spina Bifida Risk . For further inquiries contact [facility] at [phone]. . This test was developed and its performance characteristics determined by [employer]. It has not been cleared or approved by the Food and Drug Administration. Performed By: #### A FPMAT #### [facility] [address] [place] [address] Dr. Juan Antonio Ibarra Gest Age Collection Date 18.3 weeks Normal [facility] Comment on above: Performed By: #### A FPMAT #### [facility] [address] [address] [address] Juan Antonio Ibarra Gestat, Age Based on LMP Normal [facility] Comment on above: Result Comment: Reca lculations are not recommended when gestational dating by LMP and ultrasound are within 10 days. Performed By: #### A FPMAT #### [facility] [address] [place] [address] Dr. Juan Antonio Ibarra Insulin Dep Diabetes No Normal [facility] Comment on above: Performed By: #### A FPMAT #### [facility] [address] [place] [address] Dr. Juan Antonio Ibarra Interpretation Comment Normal [facility] Comment on above: Result Comment: Inte [...] Customer Services to discuss available options. The [employer] recommends amniocentesis be offered to women age 35 and older. Performed By: #### A FPMAT #### [facility] [address] [place] [address] Dr. Juan Antonio Ibarra [age] Normal [facility] Comment on above: Performed By: #### A FPMAT #### [facility] [address] [place] [address] Dr. Juan Antonio Ibarra Multiple Gestation No Normal [facility] Comment on above: Performed By: #### A FPMAT #### [facility] [address] [place] [address] Dr. Juan Antonio Ibarra OSBR Risk 1 IN 3501 Normal [facility] Comment on above: Performed By: #### A FPMAT #### [facility] [address] [place] [address] Dr. Juan Antonio Ibarra PDF . Normal [facility] Comment on above: Performed By: #### A FPMAT #### [facility] [address] [place] [address] Dr. Juan Antonio Ibarra Race Normal [facility] Comment on above: Performed By: #### A FPMAT #### [facility] [address] [place] [address] Dr. Juan Antonio Ibarra Test Results: Negative [facility] Comment on above: Performed By: #### A FPMAT #### [facility] [address] [place] [address] Dr. Juan Antonio Ibarra VAGINITIS/VAGINOSIS DNA PROB Abdirashid 02-08-2022 Bettye species Negative Normal Negative [facility] Comment on above: Performed By: #### A 1C #### [facility] [address] [place] [address] Dr. Juan Antonio Ibarra Gardnerella vaginalis Negative Normal Negative [facility] Comment on above: Performed By: #### A 1C #### [facility] [address] [place] [address] Dr. Juan Antonio Ibarra Trichomonas vaginalis Negative Normal Negative [facility] Comment on above: Performed By: #### A 1C #### [facility] [address] [address] [address] Juan Antonio Ibarra ABO and Rh group post transf usion reaction Nom (Bld)Ordered By: Eleazar Hess on 02-06-2022 Microscopic observation Gram stain Nom (Unsp spec) [facility] ED Clinical Summaryon 2021 ED Clinical Summary [facility] Emergency Department [address] [place] [id number] ED Clinical Summary PERSON INFORMATION Name: ZULEIKA WYATT Age: 31 Years Sex: FEMALE : 1990 MRN: Acct#: Visit Reason: Rash; Medical problem - minor; POSS BODY INFECTION Arrival: 01/29/2022 20:27:46 Discharge: 01/29/2022 21:17:00 LOS: 000 00:50 Check In: 01/29/2022 20:27:46 Checkout:01/29/2022 21:17:00 Address: [address] [place] [address] [place] [id number] PCP: Andie Stoddard PROVIDER INFORMATION Provider Role Assigned Unassigned Johnson Wright DO ED Provider 01/29/2022 20:29:08 River RNJessica ED Nurse 01/29/2022 20:31:57 VITALS INFORMATION Vital [...] follow-up with their family doctor or their ON CALL doctor. To this they agreed.. Health Status [...] Current Fr (more content not included)... Normal [facility] ED Note - Physicianon 2021 [...] follow-up with their family doctor or their ON CALL doctor. To this they agreed.. Health Status [...] Once. Impression and Plan Diagnosis Sebaceous cyst ([id number] L72.3, Discharge, Medical) Plan Condition: Unchanged. Disposition: Discharged: time 01/29/2022 20:59:00. Prescriptions: Launch prescripti (more content not included)... Normal [facility] ED Patient Summaryon 022 ED Patient Summary [facility] - Emergency Department [address] [place] [address] PATIENT DISCHARGE INSTRUCTIONS Patient Information Name: ZULEIKA WYATT Age: 31 Years Date of : 1990 Reason For Visit: Rash; Medical problem - minor; POSS BODY INFECTION Arrival Time: 01/29/2022 20:27:46 Primary Care Physician: Andie Stoddard Attending Physician: Omley, Johnson H DO Comment: Visit Diagnosis: Diagnoses This Visit Medical problem - minor ([id number]) Rash ([id number]) Sebaceous cyst (L72.3) The Pharmacy at [facility] is open Saturday through Saturday [...] and/or drug addiction problems; contact the [facility] 07/01 Crisis Hotline -Text 8RLTN ah 988032. If you received any narcotics, sedation, or [...] legal documents With: Address: When: Andie Wyatt [address] [place], [place] [id number] Business (1) Within 3 to 5 days Comments: home warm compresses clindamycin for antibioitic see your ob, or Dr Wyatt, for recheck apt ----at some point, this might have to be removed; this is not cancer, but a retention cyst of fat material; Return if very red and tender, or fever, vomiting worse You are welcomed to return anytime. Call Dr Wright, ext [phone], if any question patric WRIGHT< ER PHYSICIAN< H [facility] Medication Information: The exam and treatment you received today in the [facility] Emergency Department were for an urgent problem and are not intended as complete care. It is important for you to follow up with a doctor, nurse practitioner, or physician?s health care legal assistant for ongoing care. If your symptoms [...] so we can reach you if necessary. [facility] Emergency Department has provided you with a complete list of medications post discharge. Please inform your primary care pediatrician/provider of your visit and for further instruction [...] Epidermoid Cyst (more content not included)... Normal [facility] TYPE AND SCREENon 12-30-2021 TYPE AND SCREEN Antibody Screen NEGA TIVE Blood Bank Notes performed by CV on 12/26/2021 ABO Rh Typing A Rh Positive Blood Bank Notes performed by CV on 12/26/2021 Normal [facility] Comment on above: Performed By: #### R UBIGG #### [facility] [address] [place] [address] Dr. Juan Antonio Ibarra HEP B SURFACE ANTIGEN SCREEN on 12-28-2021 HBsAg Screen Negative Normal Negative [facility] Comment on above: Performed By: #### H BSANS #### [facility] [address] [address] [address] Juan Antonio Ibarra HEPATITIS C VIRUS AB W/ REFL EX QUANTon 12-28-2021 HCV AB 0.2 s/co ratio Normal 0.0-0.9 [facility] Comment on above: Performed By: #### A 1C #### [facility] [address] [place] [address] Dr. Juan Antonio Ibarra Interpretation: Comment Normal [facility] Comment on above: Result Comment: Nega tive Not infected with HCV, unless recent infection is suspected or other evidence exists to indicate HCV infection. Performed By: #### A 1C #### [facility] [address] [place] [address] Dr. Juan Antonio Ibarra HIV 1 AND 2 WITH REFLEXon HIV Screen 4th Generation wRfx Non-Reactive Normal Non Reactive [facility] Comment on above: Result Comment: HIV Negative HIV-1/HIV-2 antibodies and HIV-1 p24 antigen were NOT detected. There is no laboratory evidence of HIV infection. Performed By: #### R UBIGG #### [facility] [address] [place] [address] Dr. Juan Antonio Ibarra RPR QUANTon 12-28-2021 Rapid Plasma Reagin, Quant Non-Reactive Normal NonRea<1:1 [facility] Comment on above: Result Comment: Plea se Note: This test does not meet current guidelines for screening and diagnosis of syphilis. This test is intended for following treatment response in patients being treated for syphilis infection. To screen for syphilis infection, a reflex cascade that includes both RPR and a treponema-specific assay should be utilized, such as Treponema pallidum (Syphilis) Screening [place] (501763) or Rapid Plasma Reagin (RPR) Test With Reflex to Quantitative RPR and Confirmatory Treponema pallidum Antibodies (487547). Performed By: #### R PRQ #### [facility] [address] [place] [address] Dr. Juan Antonio Ibarra RUBELLA AB IGGon 12-28-2021 Rubella Antibodies, IgG 3.48 index Normal Immune >0.99 [facility] Comment on above: Result Comment: Non- immune <0.90 Equivocal 0.90 - 0.99 Immune >0.99 Performed By: #### R UBIGG #### [facility] [address] [place] [address] Dr. Juan Antonio Ibarra CBC AUTO DIFFon 12-26-2021 BASO # 0.0 103/ul Normal 0.0-0.1 [facility] Comment on above: Performed By: #### A 1C #### [facility] [address] [place] [address] Dr. Juan Antonio Ibarra Basophils/100 WBC (Bld) 0.3 % Normal 0.2-2.0 [facility] Comment on above: Performed By: #### A 1C #### [facility] [address] [place] [address] Dr. Juan Antonio Ibarra EO # 0.0 103/ul Normal 0.0-0.7 [facility] Comment on above: Performed By: #### A 1C #### [facility] [address] [place] [address] Dr. Juan Antonio Ibarra Eosinophils/100 WBC (Bld) 0.4 % Critically low 0.9-7.0 [facility] Comment on above: Performed By: #### A 1C #### [facility] [address] [place] [address] Dr. Juan Antonio Ibarra Erythrocyte distribution width (RBC) [Ratio] 13.5 % Normal 11.0-15.0 [facility] Comment on above: Performed By: #### A 1C #### [facility] [address] [place] [address] Dr. Juan Antonio Ibarra Hematocrit (Bld) [Volume fraction] 38.9 % Normal 36.0-48.0 [facility] Comment on above: Performed By: #### A 1C #### [facility] [address] [place] [address] Dr. Juan Antonio Ibarra Hemoglobin (Bld) [Mass/Vol] 12.9 g/dL Normal 12.0-16.0 [facility] Comment on above: Performed By: #### A 1C #### [facility] [address] [place] [address] Dr. Juan Antonio Ibarra IG # 0.03 10e3/ul Normal 0.00-0.03 [facility] Comment on above: Performed By: #### A 1C #### [facility] [address] [place] [address] Dr. Juan Antonio Ibarra IG % 0.3 % Normal 0.0-0.5 [facility] Comment on above: Performed By: #### A 1C #### [facility] [address] [place] [address] Dr. Juan Antonio Ibarra LYMPH # 1.4 103/ul Normal 1.2-3.8 [facility] Comment on above: Performed By: #### A 1C #### [facility] [address] [place] [address] Dr. Juan Antonio Ibarra Lymphocytes/100 WBC (Bld) 14.5 % Critically low 20.5-60.0 [facility] Comment on above: Performed By: #### A 1C #### [facility] [address] [place] [address] Dr. Juan Antonio Ibarra MANUAL DIFF REQ NO Normal [facility] Comment on above: Performed By: #### A 1C #### [facility] [address] [place] [address] Dr. Juan Antonio Ibarra MCH (RBC) [Entitic mass] 29.6 pg Normal 26.7-34.0 [facility] Comment on above: Performed By: #### A 1C #### [facility] [address] [place] [address] Dr. Juan Antonio Ibarra MCHC (RBC) [Mass/Vol] 33.2 g/dL Normal 29.9-35.2 [facility] Comment on above: Performed By: #### A 1C #### [facility] [address] [place] [address] Dr. Juan Antonio Ibarra MCV (RBC) [Entitic vol] 89.2 fL Normal 81.0-99.0 [facility] Comment on above: Performed By: #### A 1C #### [facility] [address] [place] [address] Dr. Juan Antonio Ibarra MONO # 0.5 103/ul Normal 0.3-0.8 [facility] Comment on above: Performed By: #### A 1C #### [facility] [address] [place] [address] Dr. Juan Antonio Ibarra Monocytes/100 WBC (Bld) 4.6 % Normal 1.7-12.0 [facility] Comment on above: Performed By: #### A 1C #### [facility] [address] [place] [address] Dr. Juan Antonio Ibarra NEUT # 7.7 103/ul Critically high 1.4-6.5 [facility] Comment on above: Performed By: #### A 1C #### [facility] [address] [place] [address] Dr. Juan Antonio Ibarra Neutrophils/100 WBC (Bld) 79.9 % Critically high 43.0-75.0 [facility] Comment on above: Performed By: #### A 1C #### [facility] [address] [place] [address] Dr. Juan Antonio Ibarra Platelet mean volume (Bld) [Entitic vol] 10.0 fL Normal 9.5-13.5 [facility] Comment on above: Performed By: #### A 1C #### [facility] [address] [place] [address] Dr. Juan Antonio Ibarra PLT 194 103/ul Normal 150-450 [facility] Comment on above: Performed By: #### A 1C #### [facility] [address] [place] [address] Dr. Juan Antonio Ibarra RBC 4.36 106/ul Normal 4.20-5.40 [facility] Comment on above: Performed By: #### A 1C #### [facility] [address] [address] [address] Juan Antonio Ibarra WBC 9.7 103/ul Normal 4.0-11.0 [facility] Comment on above: Performed By: #### A 1C #### [facility] [address] [place] [address] Dr. Juan Antonio Ibarra CULTURE URINEon 12-26-2021 CULTURE URINE Culture Observations : LIGHT GROWTH OF MIXED GENITAL ALONSO. NO POTENTIAL PATHOGENS SEEN. Normal [facility] Comment on above: Performed By: #### R UBIGG #### [facility] [address] [place] [address] Dr. Juan Antonio Ibarra GLYCOHEMOGLOBIN A1Con 2021 ADA RECOMMENDATION SEE BELOW Normal [facility] Comment on above: Result Comment: ADA RECOMMENDED LIMIT 4.0 - 6.0 ADA THERAPEUTIC TARGET < 7.0 ACTION SUGGESTED > 7.0 Performed By: #### A 1C #### [facility] [address] [place] [address] Dr. Juan Antonio Ibarra Glucose [Mass/Vol] 114 mg/dL Normal [facility] Comment on above: Performed By: #### A 1C #### [facility] [address] [place] [address] Dr. Juan Antnoio Ibarra HbA1c (Bld) [Mass fraction] 5.6 % Normal 4.5-6.2 [facility] Comment on above: Performed By: #### A 1C #### [facility] [address] [place] [address] Dr. Juan Antonio Ibarra US PREG TVon [...] GOLDMAN Date: 2021-12-07 16:59 Normal [facility] Coding Summaryon 11-21-2021 Coding Summary HTMLBase 64 JutzfzfrZLu7fHy+PGhlYWQ+PE 4GLHIaT40khXQhzY1OD8cCGD9N YMSNPKKEMM2QZY9qxLU2HGqyI1 VybiAv DlqmqWYrLX13GJz3SWS7tAjoRQ uhwG8hkQByL6g5IaIlDZ68aF00 GXzvKBZdXpV0PrVndolgnVAj O6nuQrYttZKbTzp+PHRhYmxlIH gbCPZmDEsbBPJaZwOflHflJL0c Te2rIUUlCEOadRelzWKqTsLo c6gwAOKjWYxxMS8udQhlS0WevE S3QALwu0k1Gf80pMX+PHRkIHN0 lWnlLFhzg192XwAwu1krCKH7 zTGeCFxrEKU9H32ap2Y4XYTuKF KwXEI3oHE1qV6mrTajwhcdE1Dc zDUkHbH9EGW1yWCuxD2lpQmz kwwooQ0sSgp+K69AHI6UBWLQIV 0HNhp2C6ScJdtkiKR+FC59JYXa EB89qDHsrQSfl0yjaGa9RaDe XQWdKGT1hRyaINmpf6JmZBLjT4 4whXCka7N8YEZezJusaILrVmLh qDX3dE5nJSjfbobei2emyvpq Nferj6lumf15pI75B34kJSdiFJ JzJUS0WZThOJRnaZiojz6evB3i Ii8+WYkng2hzf4emuOu0AyDf ATRjxjByhMkeWAY2w2TkJn91R8 GijYahz7BzNza0os75xLMjy5B2 dYA1PGujWFAlsA1cUSowXrU4 KUMqVpFxzQ80kITwWWkvOg8hhJ rrrCcwHJ5sCUZwjcbyABShiI5z CNLqzUKtvWroVM1nNLTsoksb c329NcRuDOP9HYEvmOQbR7LvdR 7vKcZoDCZgQMDhC1RpsKKiQQpq G818SXgrJnP6PBGeezBfD6Xw DAYlzWcrOpG1x5C8Fr6Oi1Sclm ekNSK8WIdoYSO7GsU7SdNnWfM0 Q8PrThn6UATohDndDI6rF8Qp ELOdxaljiacaxXM6IGReFJRnhB 39gYTiWEwuTu0mz8D1s429JSRa MSTufB52Yk8lsGctXUAerQSQ uV0ayhsan6laoavcUwLzVRFmES p0RVj9YKZbzNckEgLoTRU8TgD9 XAZ5qHMzgQ1riXmvzvltiQ6c Oyc+J11hqE8dCDJ2DAQ1ojajSI OhmnRnVU20WJ71D0LeBbqdhQBs bGU+RIJvobHkgSjuDL3mKaUt t7uhr6CwOIphB6GkGLCiBRatMx z2RADgZTD7mBY8mZ3mWVAvTTeb x3I9kJC4R1KeluKvpb0gm7by HKSyCLyvQ88owGSnh6T7UIMbkH R7SGVvgYswHcUkrK42Kph+PGNv wLrkr7UaHsuwc6xuh9scoNb0 FmQrKSZyfhDicWmyLLE5h0XsUj 27E61eJPgfGOSjHJKsNXWjFCBb yWptjz9qkZ4xNj1+PGNvbCB3 uBL7yK6zHVMrOiU1YYcnM977Dd XcmMLbEvvqt5xms8wfnJf0FiJs ASPvjlIhtHayYJR9r2ZpPe94 G63dROxbSLYoRHMlPCFhUNDmuD hplh7bbJ3rVc3+AH3ks3amrf92 kF75hGC+UETrJKX7nKglYMsm PQBbzL7cQFbhUhI3CZLlNaWmvZ 25wKFcVVbcHo3tiSjfdBkzSY4h GKQifahfa333KoYig1luOWJo sDOrSQihBWZ2S60cm2B7ZUJqJB KgAXT9bHV0gK1pvQiokqtjrCFi sYjrvqFnrHelPCtjBJvhS639 IHRvcDsnPlBhdGllbnQgTmFtZT q8V3JyIfz4ZTWfzOusGH0yvUPn CGitZq3rqKrpjRkhLC5lRSIj gfsnz183SmMpw6jzNFMgzUDqPW byBDY7F50aw1T3UMIsYRTlJZL6 rLU2bM1ulZxwhdveaGCloQeb dqJvpBclAOgyNFfdB087XRDwhT uxUrTqhbExVKUnvAV3HK73GK56 oSLcu8Y2kWX1H5OxMAFkntko fqotlPJ2TUTqJWIdhC49Ae6tkF hcOe6tACFjNQN7CELkfNInQ6Pk lD1bCvHbPPWfKLWqV1OoiQUl MDseX698JPhdTuA7IEVgtyDjF3 GuESMfeSelNmF3m4R2Sr4SA8C2 CT22DS47nARni8E3yHQ7O9Ha JBGnybbevffleII6JBWwSPJkoW 73Nz3puRkuQu6lRUYrLPD5AUDw qLRrY1UojF6eEkHvHUQpPFFq V7AcmQFdZNppL035ZVfeCjO2SN CqrcQtG1GgAJLhjEyqFyD3n5C4 Gt6OVUl4AQ82XK65yHIqw8F0 xBX4Y9IyTLOluegkldnohEZ4XE CuGDMnbA08Sc4ntLhsSo4pGAVy OZD4ANKqiEJhJ7KtpM2xQuQh MZFrMFFlM2AtsVZjHAdmW763NX hbLeB0ZKBvsdRsI6XmXWWkpZzm HnV9r4E6Cj0QGZZyTH70ASC7 kFC8GI76IQ14T2JrOizxcPLehP U+PHRhYmxlIHdpZHRoPScxMDAl FjFpcWblQW8dUn0eLMHgDVTr fOzbrTWoYgNvx1tnLAUjQErgIV 1oiLylZ8AipYR6NSYxm6s8Ee62 Z73bA9DohPA+IKCfnZO2aRK6 hM3nNiIkBpA1GYbfG347DhNlxE RlSfpno1ddq6fmiXj3EhY8CZAk atZhjSgcMFC9p9ZbEw45U83r IHdpZHRoPSIxNSUiIHZhbGlnbj 3akX1bRd9+MBRqxXN8bOB0tY2f PxHtGvE6KHdsB339MvLhjZFt Eyapw5ejj8lolQz6PzWfNINxxo XdtLjvTXI8g6ZwSs37X2ZliGag v7TqWhx4bb24oFIis0G7kMS0 C0BuPGNtwtjidMHbcKfhNG7mCB IxdvplBLBcnZ5lJQAlI1j4XhTw UyY1RVerX1AlaxG8XXXuxETc AXhySHB9R49yl7W3AUIzLFOyIT D2xZC2kI7yvLrkgcchiFJmlDbv kiSwwItbDLabXVinY812DOTy sPclJZLiqI2lOIZbfAKzgZvuGI 4wNTBpbjsnPlNURUlOLCBWSVJH GA6ZNWFCNPN5V2XfQmi9EVCc yQdvRM5omUZwDJnqOg6qsPsxpD owYF6eYJBqutjkJEHlaI5oVGIj cOObyHvxMO7qOCPuhyvwz757 ImQoTBK5KCWzuDDbH8DweZ1oKj TbWEFvRFEuE6BuhINuAUxwJ062 XQqtYjP4MKJqldJsE9PkFSYl iKppFuP6m5K6Hf4vJC4hBM2vBZ gfOX16AT28vXVsn1Q0wQA7G9Ov FNCmctaainzhvZD3GQQaEUIg iC44rTLuZNgpOc3ti4E2i061ZK QlIORtjH53Cy9sdVcgJRCbvKDB rK5wcsgjj9paxtjbOxMcIIWz ADp4ROy3VSHwaZhjSrHsFHC5Py B9TVE2sJGliJ8drAygajpqgK8k Oyc+UnqiBZLhdqZ7X1ZkXja7 TUNjwCfpEZ7fcIDdEUhrUz0laJ xgpIybMC4dVPApajusIGMouT0k ILLofFSmvAsrYV6fBOEkifls z025IqBpREM9YGDfpFHgG2QbaE 2yKsOsVONkEFPwI4RffAZxPNwg Z646SMckDcH3HNBcbgAlL5Gx MYZjaPdaBgA9a9R2Nq4VTB1KCA T4Y1JcPzb6DTQupRxyVW6vjSVs LKjhUc5peSgjdCycAZ8kAGPs wbziRRAlzD6jREWyvLYusEaiMS 1zGNNhvqpfc422IeEpMLJ0DTCt vFQzF0QdtT4oOjJpGUIhLMIf J5NapWOjCLktF346ZElsQzM6FV AkbeEyB0ScESMirBwhZvN9v8T7 Ad2NJXkfmJM+JW30zf86R5Gy XvteFxi2EBYtAXV2yCO3kL3zLO WaSGara7J8mVA6T6JbchQcab0g v0ioQMGaUYxmQ41yyYWfp5D7 WFDubTS9BBPekKktDvVxzC90Qm c+ATIjdGimv3DpQkaep7kag5sj tCa7NrUmLOBincKosAzjQSL2 b7TjGr08V60qVOcmBSEbJGUpIG PjFQZmkLbspv8sfG9gEf6+PGNv sNM2wMX6fG4lQaClGzE4GDwu Q439EeKleUXuUacpt4khj9gulT l5GsYaGHDossJxjOeiOVD8q5Yl Ux37X9TokIgvl6QjNfn9nf46 gIUlq0I7ePM6S8IjWVCwyaaboZ KhaEhkIG6dKNCzxvmoPHOvuT4p IDXkC3r7ChVwIzQ5MMrnQ4Ri dzI3ENGgcCDoTHKnxAUPuP7rhn tlw2yjqzjqPyDyCOKhMOa1CCu2 SKUwtUmsAnBbXGD0SyM5CNR8 wNDxiV8ljYrzwhtrbN1hHux+UG z6j1xewZXmLC7liXV7OT25EB55 fMLgd8V1vPJ9B3OoQSDqwivy fekirPD1DKWvYNBsqM27Ae9nwO mjVr4fANUzUZG5QXWwnTPpS8Va oY5lTlBnUUQfNSNlK3PxhCGn THyrA102WMeoNaS8MJUyfiIiP5 TqRZBxqAfdCdY9o0Z6Nn8WOH64 VI90MY10lBVvf1X2dVE1J9Wz JKKqnhqcmkvveQM8RSApEZStiB 82Ny9cbYoyMw3yDLBqDXS0QPIe sKKbK1VavY2jIrUmIANsYCQj X1AxlIYiRAvsA465WUisRwS6HZ HfhgQsL3IpHYAjkNpkZgD0a4W9 Bf5ELz02MM38HM58lFMeu2N7 yLM6M2FeZFGxtecjronvuTX9DU MbXMAvxP07Nj0etPhpHo4cDCTs BTW3TSYljZRzK4RktR2lVlJu VNDsXWDbP2GrwPBwDChqB449TA zxEmW8GLNgabGhP7VyROLfpIhd XrL3d7N7Ao5NPIytmri8P8Hg PjwvdHI+ZB03XMZnOL61cFZjcF Xcr6tcqCc2IhDwUKVuANO2fJfc XSkjs6YfARJwA41ybQUxj8J7 IGN (more content not included)... [facility] Coding Summary HTMLBase 64 OjxlpbwlDSr3cCw+PGhlYWQ+PE 0ZIWJfS75usQLmoW1VP1mYLI6O QQBBHJVFFJ4FYU4fuOO3TNwrB9 VybiAv VzzveQIcKF79OCk9XBS6sWcsHG atbI5ssAJsW2y8OuOkFF65xP36 DRxzSIKlHeJ8NsHxaswezELg J9lpQoElpMFpLga+PHRhYmxlIH drWJAoBSgiTORkVsMiiQacRZ0z Ve4fKCEbMLHfaEqoxRLfTzXg j5tmQZQjWHazAU8zhWuwC7JmcI T5TRQmp6c5Zr32fWE+PHRkIHN0 wGexQBwzh268ReCdh8afUTP4 gLSiAFrcRQI3W12tu3I6CFPqAV ZuSDN3gCW5lY4ybRusmxvwS7Qt uAZaFkG5WOO7cPRceL9gpPkt drphnR5iBor+Q27UNL3UZRIJYV 3UCeq3Z2OhKecmgYI+XZ56VKQt KT75mWBnvWNcn0fuoKe5WaXd VJYbQUF7dMoxCRoxg6YbZAInJ5 0ecRPec6V6HZNkqEdspEPxQkIg aZQ5pH3kWGjjatnza0scgowl Uvcpo3idgx02eA07S69jBSshAN FvJDZ0PTFuALHogDotek7bqF0j Ii8+RJkyb4vwi6odgIk7MdEw KXQebeFxfWufNHC2v0CzYy08L7 NxrByrn9QcZwu5ek30zHQct9X3 mFP8IZjnRQImxU8jJNfzIvD4 DYQqMgXqnU57bUKzQLoiYe9ejQ qjlJipIL4fXQPbuxnwNVBwqS1w TILvhQQsmQnkWT4eVUEggwig e840VqVxTLS1YTDcnUAoW9MzjQ 6fYmCaRQAiEYStV8QzdTYnLBes M987PTxuOyK4SWWlxbQbZ6Td UDFfxCanCsD6f1Y6Xm3Vz5Pocj eoLIT0QAxjSXF1CyR6ZoYoQcW2 Y5KrPof8SRBadWaeTZ4lN3Lt JXYmsaddkarwkWN7TYLfCFMcqY 61dEOxPKbrMr6od3O3c848JQRh OIUcwH86Ky9ueBqyJZLqjCGW bJ6jmarbx3ewkqzvYlZuUUKcRT a3PEc0XFMusEbeScBqDCM8HcU4 WQJ1uUGhmM1isBqbnoifdQ7i Oyc+Z24nmL4kLZF5VJT2aipfVJ MeytLjSB93AN90S6NjRqpygZSj bGU+SCIipqPlcUtdTB5gMhQy f9mxu6TrAGznG0PoFGQeGGsoRa f5YZNtJVA3fNY3lF5jRDAfBDbj y3N7qRN2I2HhqlDtsc1vz7jx OWSlNFhiP10dhPDlu4Q6FAVcoB P2UXEnfMvjHwBpsR75Gln+PGNv nJdpa3JjNyfng1vmy7yvtGl4 AvVzYZApmmQluJugHVO4z6RdAd 86D88nMDdbIOTxCPNsYYSyWOTe sAybue9clF5oOh8+PGNvbCB3 nJD1lQ5pKWSlXjV9TBqpK735Ls ZyvDJfRixpc4zgm1bjpOg0BmOl FFSoyjZnjAfgQYX0q9RqBj71 V83xJDedHGTtJXVfEWHgYCVxsT vhdf5riJ7wTn3+YB3aq1wmcz21 gW58qBR+GOMkDZK9kEvpLIid KIUcqW7lWUhoNhQ2CWJjFeCnsZ 90bJOqSLtaWn2kqCnhhXgeBH0r RWStnrjhs025YgEgm2weKAWi aDIoJEgwTQR8P82qr7O5FFKhRB ErIQW9kVT3uA8heXgttnqjeQCi iNixjtMbaEyhRKpbFKddB400 IHRvcDsnPlBhdGllbnQgTmFtZT x0R2EiCyz1ATIxpMaoTF5vrXBr PLutEl1ihKomiLwjPM3aZKHj jeefi440SmYhk5qmOHFtoRKeCZ teONQ0T99te0S4XLBuDBCzPTU3 uZG8xN1utLdmymnnqGRkeNcw cmAxyJekNBawURsnH083EUPmwE ooGcVsimAwKTNrrNE1JY68CG63 gZHai6X0dOP4U2XiADKowdjf whaouAI0MLNbEHYonI11Ql9kbW bjJt9iJQXvVBO6FZWkcOSwY7Ao tH0oLiQaWHXdDVSqL5VzcRZy IBoyO248DYfdYsQ8VBQopkBxM9 IjTUVsdEvnPlU8j9N0Dg1VT6V2 GR61GE52iSLlp8A7qIV4V4En FFEeodbztticrZS7HFPdOEMwhT 66Se4vbWgmSf9lUWNpRBM3WXKm yKEdI5NjqD9mTgRxUSAjSYCt S2CqpMXgBEuqT494IJclJqA0TJ MtnbViY1EcATOqgTahYoO1r5X3 Jd7PNYj8JV65HF64kAScn2G8 eEJ2Z7QrRBTrfhgnxvpwhAR7GT EkNDNmcZ08Ha3smOusNz7uQPUm TRX2BQMmjGNmV0EanP5hAzUq HERhXQEoI6BmdGLdZHrxU338ZR ieUrE1WQHeesKcT2PeTEVrsTyf OwX2z5L0Kl9ZZSEwMO22LRC3 qEY6VG36TT50K9UzZmmlvEWwjL U+PHRhYmxlIHdpZHRoPScxMDAl SqAjcIhxLG6lUp3mAJWiQGWp eJpsgJFkDgHji5mvHFKhPMpmFH 3ohGbfY7HeoNY4ZCYqf5c0Gr61 U03gA8PrtGV+LPQmjOV6dPW0 bE7xWyMeWxZ0NIbyY714SrJrcM TyEzneq2qpi9ccpVg8LmZ7PNWz doPugNwgDJD2v3HyKh41A56z IHdpZHRoPSIxNSUiIHZhbGlnbj 5nqF5eBs3+ABSjfVZ2sQG3mJ5m FjAjPsG6GCjmS574PkQuuFAg Qrwjg7fcz3lqpCo4MiLcPFCiyf QjjDwwYNO7b3KlOv07F5WnsOoe l9DzPdx5hw29rCHtr9C3oUL4 X7JgWHOdluqvwAKcrTfnHK0kPI JhtydgSFYthG4cAAIfJ2m7WgRz BbS3NPulD6HecyB1RNFetEHu ANvbSOM8A43xc2M0VOKsTTNrAF J0sJP2bL8lzFjfztyxmGQizXzy huHguMrnLIcbRHyuE632FLIt kPwiZIJsjO6mUPWnwLCybBrrBS 4wNTBpbjsnPlNURUlOLCBWSVJH XN6CGAZKFWN6V5ZfBfp3YQRk wVrjHD1afHSoPIdvWn1ljSwsiI lbFV3xFEVzdormBOXzhW4aKUHn tZHvvQeiCG0sBASshccuq548 UsOpOOM1UWHahYJcK1AzlV5wDf GbJDPbPZJtT7GppUCuBAgiG889 YFuaKnN6UEIdniQoG5NiVAYh uAjwYbE0k8N8Fj8hZB6aGG9eLG soDU33EO37gUJyr7V4oZW3N7Pl TLUcezzaetrkiDQ9CJPeTCDp jQ07xDOkFQdzGu2qh9N6m325JY HrFHQqbC29Nz1beGxwKCKzcBIM vZ9zedfcy6ppcavfNkEiNEVk UWk0TAo2HHIsnEqqWvXuQCS3Uz T2NBW3nVKpgX5crSdbbpycnT9o Oyc+KkjgWYSghcA1N5GxGyx0 ALKoqZjcKP3nbNDiWBriIl3auE gzeQyaYY4yJMPhaldpIDOrnH4k WKPcpKHktPvnOH5fXRHkujzn a384ZcVeJVP6TDYxzIZmZ3EuzF 3wUvZwPQQkZBMnS0XatXBlRQxm C343PPsqIcO9EMVekpWhJ3Bw TJDcoPlpEeF9l0P0Zt3VFD2ZPT K6C4SgFet5ERQmbJewGS8jzFQx MOdvPi9erBharKppHV4lZIXj sngiOQWivH7pZIAdpPJyiQezGW 4jJVZoisoma181YcQoHIO8CROv yPWkM6QonN3oQcLjJLHxXCYu L9BfeYCwOFsdJ106FHuiKmR3AV VedeFsC7ArHHCidNteBhL3h3N3 Qm3HxDHuA7KsD6a4K5BhBrnx dHI+YQ24POCqOI12kAGhaDFqx6 ishQv1DlLcJQBgKZT1xQlaOVnl j0WzFNZzJ48dzTOfp5N5RLAf tGgxgFSgWiPvxYN2uE9jZHlyjt mhb0kjhgpeJztpe2pfox42pE02 Y17zACdsNUEwDVWaZWDoSKEy nBeymt9tjN5wFm4+WQTezGB8cK L9nR9jLyIrKwI9CTpcZ103SjFk rVBqPujjx1dks3khkKb7CuFo UQTjnuTylFjiUZP4k4RaXr49H1 9sIHdpZHRoPSIyMCUiIHZhbGln el7cpM6eBt9+YR1ee1nelm80 rE42sAV+DPIyAWR0kIigGRykTN ApxO7xSJgkOuZ5IMXvEzDwrZ16 kNUaWXwpXi9fyZeedMfpKM1q WTUgkvbfo771UtTts8quFQIlvJ ZwQQizNYU6K69wm2Y0CTWrMEXf JSC2nNQ0vZ3cjEfjiwhorMRn lZrnlhJfzQysPBqwWXobB560TS VuaXciRyNlcVZpF0qazgZPLR8z OjwvdGQ+GBKsKPV4cOcxNDlu DJHmkR1qALAjH5e1NpBzJfK5WL owE6AklnM4WOVvjJEnIXOqlLMX tY0oxkxwm3qyzttqGzZgBAZu ALv3NLz4IFCfoEjiJsBuQKY3Tv E0ORD4gKPtyM9njHjqtespcO2y Oyc+RklOOjwvdGQ+PHRkIHN0 yFweSHdlTOVqnQ3wTQLpA2m2De WdGxG2TEhdQ9NhooM1CRSapVTb PIXlwRRFwG9jldgce0mfruzz IaGkNJKgPKq5IXn5RGBdvOamZf EfVDS9CxJ5RQY7gFFttW9idEam czlcoF8gBrw+TVJOOjwvdGQ+ HQDcPZH7lXiyHYktMKVplH1xGS IvF7w3MhWwTfK7SSgnE4WqmtU3 DSVjvZTbAINskEKZgR1ekfig v3ysucznMaWyGIWhYTs3BAx2YC NbnDhgYoCnOHJ4KpH2TXD7uKMn eD3zsMcmlwmywQ2sQij+UGF5 AAD3JE57SE41O1AcThhhzNGvcB U+PHRhYmxlIHdpZHRoPScxMDAl AcRxhHgqOH3kOe7xMLUlXSRh bGx (more content not included)... Normal [facility] ED Clinical Summaryon 2021 ED Clinical Summary [facility] - Emergency Department [address] [place] [id number] ED Clinical Summary PERSON INFORMATION Name: ZULEIKA WYATT SIMONE Age: 31 Years Sex: FEMALE : 1990 MRN: Acct#: Visit Reason: Rib/trunk pain-swelling; ABD PAIN Arrival: 11/13/2021 16:30:24 Discharge: 11/13/2021 18:01:00 LOS: 000 01:31 Check In: 11/13/2021 16:30:24 Checkout:11/13/2021 18:01:00 Address: [address] [place] [address] [address] [facility] [address] PCP: Andie Stoddard PROVIDER INFORMATION Provider Role [...] With: Address: When: CUONG ORTIZ [address] [place] [address] Within 1 to 2 days [...] results be sent to Dr. Ortiz, your ON CALL physician. She will contact his office tomorrow [...] Patient/family/caregiver verbalizes understanding of instructions given Comment: [facility] ED Note-Nursingon 11-13-2021 ED Note-Nursing pt arrives [...] 6 with steady gait and no assistance. [facility] ED Patient Summaryon 022 ED Patient Summary [facility] - Emergency Department [address] [place] [address] PATIENT DISCHARGE INSTRUCTIONS Patient Information Name: ZULEIKA WYATT Age: 31 Years Date of : 1990 Reason For Visit: Rib/trunk pain-swelling; ABD PAIN Arrival Time: 11/13/2021 16:30:24 Primary Care Physician: Andie Stoddard Attending Physician: Gamaliel Wyman MD Comment: Visit Diagnosis: Diagnoses This Visit Elevated blood pressure reading (R03.0) History of abdominal pain (Z87.898) at early stage (Z34.90) Rib/trunk pain-swelling ([id number]) Prescription Information: If you have been given a prescription for narcotics, seek immediate medical attention if you have any difficulty breathing or any sudden status changes such as confusion and sleepiness. If you or anyone you know is experiencing suicidal thoughts, mental health, alcohol and/or drug addiction problems; contact the [facility] 07/01 Crisis Hotline -text 4hope to 741741. If you received any narcotics, sedation, or [...] legal documents With: Address: When: CUONG ORTIZ [address] [place] [address] Within 1 to 2 days Comments: Diagnosis [...] results be sent to Dr. Ortiz, your ON CALL physician. She will contact his office tomorrow [...] and treatment you received today in the [facility] Emergency Department were for an urgent problem and are not intended as complete care. It is important for you to follow up with a doctor, nurse practitioner, or physician?s health care legal assistant for ongoing care. If your symptoms [...] so we can reach you if necessary. [facility] Emergency Department has provided you with a complete list of medications post discharge. Please inform your primary care pediatrician/provider of your visit and for further instruction [...] Temporal: 3 (more content not included)... Normal [facility] hCG Quantitativeon 2 hCG Quantitative 33214.0 mIU/mL High 0.0-0.6 [facility] Comment on above: Order Comment: Pleas e call or fax results to Dr. Ortiz's office Result Comment: Resu lt confirmed by dilution Post-Menopausal Reference Range is: 0.1-11.6 mIU/mL Performed By: #### 7 [id number] #### [facility] [address] [place] [address] Coding Summary.on 12-19-2018 Coding Summary. CODING DATE: 019 FINAL [facility] STATUS: Left Against Medical Advice PAYOR: [...] Boykin Date Saved: 12/19/2018 10:35 am Normal [facility] ED Clinical Summaryon 2018 ED Clinical Summary (Inserted Image. Elena ble to display) [place] [id number] ED Clinical Summary Person Information Name: ZULEIKA VILLALTA/[facility] Age: 28 Years : 1990 12:00 AM Sex: Female Language: PCP: Marital Status: Phone: [phone] Visit Id: Visit Reason: Test; MENSTRUAL PROBLEMS [...] 5:58 PM 12/15/2018 5:58 PM ADDRESS: [address] [place] [id number] PHYS DOC NOTES: MEDICAL INFORMATION: Prescriptions Given: PATIENT EDUCATION INFORMATION: Instructions: Follow up: DIAGNOSIS: Normal [facility] ED Patient Education Noteon 12-15-2018 ED Patient Education Note Normal [facility] ED Patient Summaryon 019 ED Patient Summary (Inserted Image. Elena ble to display) [place] [id number] Patient Discharge Instructions Person Information Name: ZULEIKA VILLALTA Age: 28 Years Arrival Date: 12/15/2018 4:37 PM Discharge Diagnosis: Primary Care Physician: Provider Information Primary Provider: Advanced Loop Sewer:None The exam and treatment you received in the Emergency Department were for an urgent problem and are not intended as complete care. It is important that you follow up with a doctor, nurse practitioner, or physician?s health care legal assistant for ongoing care. If your symptoms [...] opioids can be used to help relieve rkvyoutf-pn-fcqrly pain and are often prescribed following a [...] be struggling with addiction, tell your health pediatric acute care unit nurse and ask for guidance or call [facility] National Helpline at 4-827-388-QIHJ. m Source: [place] Department of Health and Human Services/Center for Disease Control & Prevention [facility] Medications Given: Medication Dose Route No medications found. Medication Information: Comment: Pharmacy Information: Thank you for choosing [facility] Patient Education Materials: JADEN Jacome [place] , have received the following patient education materials/instructions and have verbalized understanding: Patient Education Materials: Follow-up Instructions: Prescriptions: Patient Signature __ Date Clinician/Nurse Signature Date 12/15/18 17:58:10 Normal [facility] Progress Note-Nurseon 2018 Progress Note-Nurse Patient: EDGARDO [...] to take care of her daughter. Normal [facility] U BetaHcg Qualon 12-15-2018 HCG.beta subunit (U) [Moles/Vol] Negative Normal [facility] Comment on above: Performed By: #### 2 [id number], [id number] #### [facility] [address] [place] [address] UA With Cult Reflexon 2018 Bacteria LM Ql (Urine sed) TRACE Normal Trace [facility] Comment on above: Performed By: #### 2 [id number], [id number] #### [facility] [address] [place] [address] Bilirubin Ql (U) Negative Normal Negative [facility] Comment on above: Performed By: #### 2 [id number], [id number] #### [facility] [address] [place] [address] Clarity (U) CLEAR Normal Clear [facility] Comment on above: Performed By: #### 2 [id number], [id number] #### [facility] [address] [place] [address] Color (U) YELLOW Normal Yellow [facility] Comment on above: Performed By: #### 2 [id number], [id number] #### [facility] [address] [place] [address] Epithelial cells.squamous LM.HPF (Urine sed) [#/Area] 0-2 Normal 0-2 [facility] Comment on above: Performed By: #### 2 [id number], [id number] #### [facility] [address] [place] [address] Glucose Test strip (U) [Mass/Vol] Negative Normal Negative [facility] Comment on above: Performed By: #### 2 [id number], [id number] #### [facility] [address] [place] [address] Hemoglobin Ql (U) Negative Normal Negative [facility] Comment on above: Performed By: #### 2 [id number], [id number] #### [facility] [address] [place] [address] Ketones (U) [Mass/Vol] Negative Normal Negative [facility] Comment on above: Performed By: #### 2 [id number], [id number] #### [facility] [address] [place] [address] [place].plasma/[place] .RBC (Bld) [Mass ratio] 0-3 Normal 0-3 [facility] Comment on above: Performed By: #### 2 [id number], [id number] #### [facility] [address] [place] [address] Nitrite Ql (U) Negative Normal Negative [facility] Comment on above: Performed By: #### 2 [id number], [id number] #### [facility] [address] [place] [address] pH (U) 6.5 [pH] 5.0-9.0 [facility] Comment on above: Performed By: #### 2 [id number], [id number] #### [facility] [address] [place] [address] Protein (U) [Mass/Vol] Negative Normal Negative [facility] Comment on above: Performed By: #### 2 [id number], [id number] #### [facility] [address] [place] [address] Specific gravity (U) [Rel density] 1.010 1.005-1.03 0 [facility] Comment on above: Performed By: #### 2 [id number], [id number] #### [facility] [address] [place] [address] UA Spec Desc Clean Catch Normal [facility] Comment on above: Performed By: #### 2 [id number], [id number] #### [facility] [address] [place] [address] Urobilinogen Qn (U) 0.2 {Pamela'U}/dL Normal 0.0-1.0 [facility] Health Comment on above: Performed By: #### 2 [id number], [id number] #### [facility] [address] [place] [address] 70339 WBC Auto Ql (U) Negative Normal Negative [facility] Comment on above: Performed By: #### 2 [id number], [id number] #### [facility] [address] [place] [address] 48036 WBC LM.HPF (Urine sed) [#/Area] 0-5 Normal 0-5 [facility] Comment on above: Performed By: #### 2 [id number], [id number] #### [facility] [address] [place] [address]324 Auto Diffon 12-12-2017 Basophils Auto #/vol (Bld) 0.1 E3/mcL Normal 0.0-0.2 [facility] Comment on above: Order Comment: Order Added by Discern Expert. Performed By: #### 2 196736 ####KADEN BairdJkhQjbq0147 [place] [address] Basophils/100 WBC Auto (Bld) 0.9 % Normal 0.0-2.0 [facility] Comment on above: Order Comment: Order Added by Discern Expert. Performed By: #### 2 587024 ####KADEN BairdWwfJrxq5461 [place] [address] Eos Absolute 0.0 E3/mcL Normal 0.0-0.7 [facility] Comment on above: Order Comment: Order Added by Discern Expert. Performed By: #### 2 163606 ####KADEN BairdBbvHiwx2870 [place] [address] Eosinophils/100 leukocytes 0.4 % Normal 0.0-11.0 [facility] Comment on above: Order Comment: Order Added by Discern Expert. Performed By: #### 2 003803 ####KADEN BairdPagNpum9812 [place] [address] Lymphocytes 1.4 E3/mcL Normal 1.2-3.4 [facility] Comment on above: Order Comment: Order Added by Discern Expert. Performed By: #### 2 490004 ####KADEN Luceroo1025 [place] [address] Lymphocytes/100 leukocytes 16.6 % Low 20.0-55.0 [facility] Comment on above: Order Comment: Order Added by Discern Expert. Performed By: #### 2 584536 ####KADEN BairdCidOpkf7840 [place] [address] Anson Absolute 0.5 E3/mcL Normal 0.0-0.7 [facility] Comment on above: Order Comment: Order Added by Discern Expert. Performed By: #### 2 677512 ####KADEN BairdSflBhma3715 [place] [address] Monocytes/100 leukocytes 5.5 % Normal 0.0-10.0 [facility] Comment on above: Order Comment: Order Added by Discern Expert. Performed By: #### 2 146549 ####KADEN BairdGcnNxka1282 [place] [address] Neutro Absolute 6.7 E3/mcL High 1.4-6.5 [facility] Comment on above: Order Comment: Order Added by Discern Expert. Performed By: #### 2 594686 ####KADEN BairdSvwQtrn6478 [place] [address] Neutro Auto 76.6 % High 37.0-75.0 [facility] Comment on above: Order Comment: Order Added by Discern Expert. Performed By: #### 2 631665 ####KADEN [address] [place] [address] CBC w/ Auto Diffon 8 Erythrocyte distribution width Auto Ratio (RBC) 15.0 % High 11.5-14.5 [facility] Comment on above: Performed By: #### 2 927961 ####KADEN [address] [place] [address] Erythrocytes (RBC) 4.94 E6/mcL Normal 3.90-5.40 [facility] Comment on above: Performed By: #### 2 507013 ####KADEN [address] [place] [address] Hematocrit (HCT) 40.0 % Normal 36.0-48.0 [facility] Comment on above: Performed By: #### 2 126244 ####KADEN [address] [place] [address] Hemoglobin mass conc (Bld) 13.0 g/dL Normal 12.0-16.0 [facility] Comment on above: Performed By: #### 2 725559 ####KADEN [address] [place] [address] MCH 26.2 pg Low 27.0-31.0 [facility] Comment on above: Performed By: #### 2 751965 ####KADEN [address] [place] [address] MCHC mass conc (RBC) 32.4 g/dL Low 33.0-37.0 [facility] Comment on above: Performed By: #### 2 622324 ####KADEN [address] [place] [address] MCV 81.0 fL Normal 78.0-100.0 [facility] Comment on above: Performed By: #### 2 084082 ####KADEN [address] [place] [address] Platelet mean volume (PMV) 7.5 fL Normal 7.4-11.0 [facility] Comment on above: Performed By: #### 2 953599 ####KADEN BairdSssUasj3370 [place] [address] Platelets 347 E3/mcL Normal 130-400 [facility] Comment on above: Performed By: #### 2 757641 ####KADEN [address] [place] [address] WBC (Leukocytes) 8.7 E3/mcL Normal 3.6-11.0 [facility] Comment on above: Performed By: #### 2 884771 ####KADEN [address] [place] [address] CMPon 12-12-2017 Alanine aminotransferase (ALT) 14 Int._Unit/L Normal 10-40 [facility] Comment on above: Performed By: #### 2 898291 ####KADEN [address] [place] [address] Albumin 3.8 g/dL Normal 3.2-5.0 [facility] Comment on above: Performed By: #### 2 148067 ####KADEN [address] [place] [address] Albumin/Globulin Ratio 1.0 {ratio} Low 1.1-1.9 [facility] Comment on above: Performed By: #### 2 802225 ####KADEN BairdJnrGcrb5046 [place] [address] Alk Phos 75 Int._Unit/L Normal 42-121 [facility] Comment on above: Performed By: #### 2 263238 ####KADEN [address] [place] [address] Aspartate aminotransferase (AST) 18 Int._Unit/L Normal 10-42 [facility] Comment on above: Performed By: #### 2 951013 ####KADEN BairdQhjQlmk4706 [place] [address] Bili Total 1.0 mg/dL Normal 0.2-1.0 [facility] Comment on above: Performed By: #### 2 687790 ####KADEN BairdQwvKmhb3974 [place] [address] BUN/Creatinine Ratio 12.5 ratio Normal 5.4-30.0 [facility] Comment on above: Performed By: #### 2 248346 ####KADEN BairdGsxUefa7206 [place] [address] Creatinine 0.8 mg/dL Normal 0.6-1.3 [facility] Comment on above: Performed By: #### 2 087382 ####KADEN [address] [place] [address] Globulin 3.8 g/dL Normal 2.0-4.0 [facility] Comment on above: Performed By: #### 2 445694 ####KADEN [address] [place] [address] Protein 7.6 g/dL Normal 6.4-8.3 [facility] Comment on above: Performed By: #### 2 749473 ####KADEN [address] [place] [address] Urea nitrogen 10 mg/dL Normal 7-18 [facility] Comment on above: Performed By: #### 2 749908 ####KADEN [address] [place] [address] Calcium 9.3 mg/dL Normal 8.4-10.2 [facility] Comment on above: Performed By: #### 2 912877 ####KADEN BairdLurVbxw9626 [place] [address] Chloride 105 mmol/L Normal 98-107 [facility] Comment on above: Performed By: #### 2 486403 ####KADEN BairdMzgClcp5509 [place] [address] CO2 25.1 mmol/L Normal 24.0-30.0 [facility] Comment on above: Performed By: #### 2 176740 ####KADEN BairdJxiMpjd9251 [place] [address] Glucose mass conc 101 mg/dL High 70-99 [facility] Comment on above: Performed By: #### 2 976467 ####KADEN BairdCjvGzxu3328 [place] [address] Potassium molar conc 3.4 mmol/L Low 3.5-5.1 [facility] Comment on above: Performed By: #### 2 169860 ####KADEN BairdLloThtq0123 [place] [address] Sodium 140 mmol/L Normal 136-145 [facility] Comment on above: Performed By: #### 2 448880 ####KADEN BairdGsrCvxt7125 [place] [address] Lipase Levelon 12-12-2017 Lipase Lvl 30 U/L Normal 8-57 [facility] Comment on above: Performed By: #### 2 945136 ####KADEN CxzUyxt5867 [place] [address] UA Completeon 12-12-2017 UA Blood 3+ Normal Negative [facility] Comment on above: Performed By: #### 2 959106 ####KADEN VpiTtmn7952 [place] [address] UA Bacteria Trace Abnormal None [facility] Comment on above: Performed By: #### 2 362336 ####KADEN JnkZpnr9069 [place] [address] UA Clarity SltCloudy Abnormal Clear [facility] Comment on above: Performed By: #### 2 308321 ####KADEN YbnLola7067 [place] [address] UA Hyal Cast 0-2 Normal 0-2 [facility] Comment on above: Performed By: #### 2 921461 ####KADEN KtiJxfg4733 [place] [address] UA Leuk Est 3+ Abnormal Negative [facility] Comment on above: Performed By: #### 2 664859 ####KADEN FjdGizi9288 [place] [address] UA Mucous Many Abnormal Trace [facility] Comment on above: Performed By: #### 2 807753 ####KADEN LbxFcoi2808 [place] [address] UA Nitrite Negative Normal Negative [facility] Comment on above: Performed By: #### 2 796448 ####KADEN ZzxMtto3637 [place] [address] UA pH 5.0 Normal 4.6-8.0 [facility] Comment on above: Performed By: #### 2 490005 ####KADENMorelia BairdJcdHjjr4529 [place] [address] UA Protein 1+ Abnormal Negative [facility] Comment on above: Performed By: #### 2 701506 ####KADEN [address] [place] [address] UA Spec Grav 1.026 Normal 1.003-1.03 0 [facility] Comment on above: Performed By: #### 2 039415 ####KADEN [address] [place] [address] UA Squam Epithelial 0-5 Normal 0-5 [facility] Comment on above: Performed By: #### 2 728366 ####KADEN [address] [place] [address] UA Urobilinogen 2.0 mg/dL Abnormal [facility] Comment on above: Performed By: #### 2 871419 ####KADEN [address] [place] [address] UA WBC >50 Abnormal 0-5 [facility] Comment on above: Performed By: #### 2 178869 ####KADEN [address] [place] [address] Urine, color Yellow Normal Yellow [facility] Comment on above: Performed By: #### 2 253764 ####KADEN [address] [place] [address] Urine, erythrocytes 20-50 Abnormal 0-3 [facility] Comment on above: Performed By: #### 2 296308 ####KADEN [address] [place] [address] Urine, glucose Negative Normal Negative [facility] Comment on above: Performed By: #### 2 031307 ####KADEN [address] [place] [address] Urine, ketones presence Trace Normal [facility] Comment on above: Performed By: #### 2 963572 ####KADEN [address] [place] [address] Urine, urobilinogen Negative Normal Negative [facility] Comment on above: Performed By: #### 2 653864 ####KADEN [address] [place] [address] eGFRon 12-12-2017 eGFR AA >60 Normal [facility] Comment on above: Order Comment: Order Added by Discern Expert. Performed By: #### 2 401383 ####KADEN IutTeuh4234 [place] [address] eGFR (non-black) mL/min/{1.73_m2} Normal [facility] Comment on above: Order Comment: Order Added by Discern Expert. Performed By: #### 2 232805 ####KADEN IlxCzlf5756 [place] [address] HISTORY PHYSICALon HISTORY PHYSICAL HNO ID: [id number] thor: Claramichael Baker WolfeService: Maternal MedicineAuthor Type: PhysicianType: HANDPFiled: 12/02/2017 9:04 AMNote Text:STANDARD [facility] DOCUMENTDISCHARGE SUMMARYPatient Name: Zuleika Gtz Date: [...] in 4 weeks with provider.DO Debo Vanegas [facility] PROGRESSon 12-02-2017 PROGRESS HNO ID: [id number] thor: Marie Lema (Res) LendeService: ObstetricsAuthor Type: [...] with more than 50% of the total kuox-bc-iqbjjygc of the visit in counseling / coordination [...] decreasing.Ambulating without difficulty.OBJECTIVE:PHYSI GEN EXAM:Heart: RR, S1, S1Bdjxv: clear to auscultationAbdomen: Soft Bowel sounds present [...] SOCIAL WORKon 12-02-2017 SOCIAL WORK HNO ID: [id number] thor: Meredith France ([place]): Social WorkAuthor Type: Social WorkerType: Social WorkFiled: 12/02/2017 12:25 PMNote Text:SOCIAL WORK CONSULT NOTESERVICE DATE: 12/02/2017SERVICE TIME: 1015Referred by: Jose for visit:Maternal/Infant - adjustment to conditionLiving Arrangement: HomeLives With: PartnerFinancial Resources: DisabledPrimary Contact:Extended Emergency Contact Information DARRELL ROMÁN, IIPrmedical center enterprise Emergency Contact: No,ContactRelation: OtherSupportive: YesOther Important Patient [...] from hospital. (FOBparents are Anamika Munoz of [address] [place] [address] , [facility]).Per pt and FOB, all needed baby supplies and equipment are at the [facility] and a nursery has been set up.Per pt, name of baby girl is Martha Branch.Pt states she is on SSI and WIC.Pt shares that she is in ongoing counseling at [facility] in [place] and has appointments 2 x per month.Discussed with pt and FOB signs and sx of depression; safe babysleep and discussed ways to deal with crying . Pt again states sheis going to rely on her support system.No additional issues identified at this time. Encouraged pt and FOB toutilize services through [facility]. Providedcontact information.Outcome/Recomm endations:Assistance through [facility] spent (minutes): 60SIGNATURE: CARLA Goncalves PATIENT NAME: Zuleika LambATE: December 02, 2017 : 11:10 AM PAGER/CONTACT#: Debo [facility] ANECindi INTRAOPon 12-01-2017 ANES INTRAOP HNO ID: [id number] thor: Terrance Leblanc) Richyervice: AnesthesiologyAuthor Type: Nurse AnesthetistType: Anesthesia IntraOpFiled: 12/01/2017 9:41 AMNote Text:ANALGESIA PROGRESS RECORDCATHETER REMOVAL/END OF CASESERVICE DATE: 12/01/2017REMOVAL DATE AND TIME: 11/30/2017, 1953DELIVERY DATE AND TIME: 11/30/2017 at 5:49 PMCATHETER REMOVAL:Catheter Removal: See [facility] Nursing noteSIGNATURE: Terrance Contreras APRN.CRNA PATIENT NAME: Zuleika LambATE: December 01, 2017 : 9:40 AM PAGER/CONTACT #: [facility] ANES Keke 12-01-2017 ANES POST HNO ID: [id number] thor: Terrance Leblanc) Richyervice: AnesthesiologyAuthor Type: Nurse [...] 2017 : 9:42 AM PAGER/CONTACT #: Debo [facility] PROGRESSon 12-01-2017 PROGRESS HNO ID: [id number] thor: Marie Lema (Res) LendeService: ObstetricsAuthor Type: [...] decreasing.Ambulating without difficulty.OBJECTIVE:PHYSI GEN EXAM:Heart: RR, S1, R6Vvjxc: clear to auscultationAbdomen: Soft Bowel sounds present [...] 2017 ABO group Nom (Bld) A Normal [facility] Comment on above: Performed By: #### A JESSIE #### [place] [address] RH Type Positive Normal [facility] Comment on above: Performed By: #### A JESSIE #### [place] [address] ANES PREOPon 11-30-2017 ANES PREOP HNO ID: [id number] thor: Aaron (Chiara) PoloService: AnesthesiologyAuthor Type: Nurse [...] of Sleep Apnea: DeniesHematocritDate Value Ref Range Pgqfrc6711/30/2017 32.3 (L) 34.1 - 44.9 % Final Platelet CountDate Value Ref Range Hvtbpn6311/30/2017 193 182 - 369 thou/cmm Final Vitals: [id number] 920009 139 143BP: 142/75 138/81Pulse: 75 81Resp:Temp: 36.6 [...] as needed. Disp: Rfl:Inpatient medications reviewed in [facility].I have interviewed and examined the patient. I have reviewed the medicalrecord , pertinent consults and/or the pre-anesthesia evaluation,pertinent labs, and test results.Significant changes in the patient's condition since the History andPhysical, not otherwise documented in primary service progress notes: [facility] updated information obtained within 48 hours ofSurgery/Procedure.SIGNAT URE: Hema Cuellar APRN.ELECTRICAL ESTIMATOR PATIENT NAME: Zuleika LambATE: November 30, 2017 : 12:13 PM : 1990 Normal [facility] Auto Diffon 11-30-2017 Basophils Auto #/vol (Bld) 0.1 E3/mcL Normal 0.0-0.2 [facility] Comment on above: Order Comment: Order Added by Discern Expert. Performed By: #### 2 068498 ####KADEN BairdXttGfcg7050 [place] [address] Basophils/100 WBC Auto (Bld) 0.9 % Normal 0.0-2.0 [facility] Comment on above: Order Comment: Order Added by Anamaria Expert. Performed By: #### 2 952241 ####KADEN BairdYywZgbc5770 [place] [address] Eos Absolute 0.1 E3/mcL Normal 0.0-0.7 [facility] Comment on above: Order Comment: Order Added by Discern Expert. Performed By: #### 2 249922 ####KADEN BairdYkyGgvv8325 [place] [address] Eosinophils/100 leukocytes 1.0 % Normal 0.0-11.0 [facility] Comment on above: Order Comment: Order Added by Discern Expert. Performed By: #### 2 219287 ####KADEN BairdSmpRkmq1131 [place] [address] Lymphocytes 2.0 E3/mcL Normal 1.2-3.4 [facility] Comment on above: Order Comment: Order Added by Discern Expert. Performed By: #### 2 612744 ####KADEN [address] [place] [address] Lymphocytes/100 leukocytes 22.1 % Normal 20.0-55.0 [facility] Comment on above: Order Comment: Order Added by Discern Expert. Performed By: #### 2 264897 ####KADEN [address] [place] [address] An[place] Absolute 0.7 E3/mcL Normal 0.0-0.7 [facility] Comment on above: Order Comment: Order Added by Discern Expert. Performed By: #### 2 186473 ####KADEN [address] [place] [address] Monocytes/100 leukocytes 7.5 % Normal 0.0-10.0 [facility] Comment on above: Order Comment: Order Added by Discern Expert. Performed By: #### 2 122112 ####KADEN [address] [place] [address] Neutro Absolute 6.1 E3/mcL Normal 1.4-6.5 [facility] Comment on above: Order Comment: Order Added by Discern Expert. Performed By: #### 2 287284 ####KADEN [address] [place] [address] Neutro Auto 68.5 % Normal 37.0-75.0 [facility] Comment on above: Order Comment: Order Added by Discern Expert. Performed By: #### 2 387991 ####KADEN [address] [place] [address] CBC w/ Auto Diffon 8 Erythrocyte distribution width Auto Ratio (RBC) 14.3 % Normal 11.5-14.5 [facility] Comment on above: Performed By: #### 2 387122 ####KADEN [address] [place] [address] Erythrocytes (RBC) 4.34 E6/mcL Normal 3.90-5.40 [facility] Comment on above: Performed By: #### 2 230679 ####KADEN [address] [place] [address] Hematocrit (HCT) 35.1 % Low 36.0-48.0 [facility] Comment on above: Performed By: #### 2 847888 ####KADEN [address] [place] [address] Hemoglobin mass conc (Bld) 11.6 g/dL Low 12.0-16.0 [facility] Comment on above: Performed By: #### 2 045406 ####KADEN [address] [place] [address] MCH 26.6 pg Low 27.0-31.0 [facility] Comment on above: Performed By: #### 2 998904 ####KADEN [address] [place] [address] MCHC mass conc (RBC) 32.9 g/dL Low 33.0-37.0 [facility] Comment on above: Performed By: #### 2 937945 ####KADEN [address] [place] [address] MCV 80.9 fL Normal 78.0-100.0 [facility] Comment on above: Performed By: #### 2 939046 ####KADEN [address] [place] [address] Platelet mean volume (PMV) 7.6 fL Normal 7.4-11.0 [facility] Comment on above: Performed By: #### 2 799220 ####KADEN [address] [place] [address] Platelets 217 E3/mcL Normal 130-400 [facility] Comment on above: Performed By: #### 2 529244 ####KADEN [address] [place] [address] WBC (Leukocytes) 8.8 E3/mcL Normal 3.6-11.0 [facility] Comment on above: Performed By: #### 2 404422 ####KADEN [address] [place] [address] CONSULTon 11-30-2017 CONSULT HNO ID: [id number] thor: Marie Lema (Res) LendeService: ObstetricsAuthor Type: [...] options.Patient received written information about post-delivery contraceptionoptions.[facility]ISTORY REVIEWPAST MEDICAL HISTORYDiagnosis Date- Club [...] T0 L0 SAB1 TAB0 Ectopic0 Multiple0 Live Otjccy6Tlti of Baby 1: Not recorded Date: 2014 [...] pupils equal, no thyromegalyLungs: clearHeart: RR, S1, C7Mnhaixt: soft, nontender, no massesUterus: soft, NTExtremities: 1+ [...] Epi prn4. FB soon5. [place] [address]. anomalies- prominent cisterna magna, bilateral periventrcularnodular heterotopia, [...] EF 55%.10. H/o maternal clubfoot-s/p repair as dekveh71. H/o tobacco abuseSigned out to [facility] for deliveryDr. Amado reviewed with Dr. MaldonadoSIGNATURE: Marie Hassan DO PATIENT NAME: Zuleika LambATE: November 30, 2017 : 6:49 AM PAGER/CONTACT #: [phone] Normal [facility] HISTORY PHYSICALon 8 HISTORY PHYSICAL HNO ID: [id number] thor: Marie Lema (Res) LendeService: ObstetricsAuthor Type: ResidentType: HANDPFiled: 11/30/2017 7:00 AMNote [...] T0 L0 SAB1 TAB0 Ectopic0 Multiple0 Live Odcxmz1Crlm of Baby 1: Not recorded Date: 2014 [...] pupils equal, no thyromegalyLungs: clearHeart: RR, S1, P1Tulyfnq: soft, nontender, no massesUterus: soft, NTExtremities: 1+ [...] Epi prn4. FB soon5. [place] [address]. anomalies- prominent cisterna magna, bilateral periventrcularnodular heterotopia, [...] EF 55%.10. H/o maternal clubfoot-s/p repair as igudrz28. H/o tobacco abuseSigned out to [facility] for deliveryD/w Dr. AmadoSIGNATURE: Marie Hassan DO PATIENT NAME: Zuleika LambATE: November 30, 2017 : 6:49 AM PAGER/CONTACT #: [phone] Normal [facility] Hemogramon 11-30-2017 Erythrocyte distribution width Ratio (RBC) 13.6 % Normal 11.7-14.4 [facility] Comment on above: Performed By: #### C BC1 #### [facility] [address] [place] [address] Hematocrit Volume Fraction (Bld) 32.3 % Low 34.1-44.9 [facility] Comment on above: Performed By: #### C BC1 #### [facility] [address] [place] [address] Hemoglobin mass conc (Bld) 10.4 g/dL Low 11.2-15.7 [facility] Comment on above: Performed By: #### C BC1 #### [facility] [address] [place] [address] MCH Entitic mass (RBC) 26.4 pg Normal 25.6-32.2 [facility] Comment on above: Performed By: #### C BC1 #### [facility] [address] [place] [address] MCHC mass conc (RBC) 32.2 % Normal 31.6-34.8 [facility] Comment on above: Performed By: #### C BC1 #### [facility] [address] [place] [address] MCV Entitic volume (RBC) 82.0 fL Normal 79.4-94.8 [facility] Comment on above: Performed By: #### C BC1 #### [facility] [address] [place] [address] Platelet mean volume Entitic volume (Bld) 9.9 fL Normal 9.4-12.3 [facility] Comment on above: Performed By: #### C BC1 #### [facility] [address] [place] [address] Platelets #/vol (Bld) 193 thou/cmm Normal 182-369 [facility] Comment on above: Performed By: #### C BC1 #### [facility] [address] [place], [place] [address] RBC #/vol (Bld) 3.94 mil/cmm Normal 3.93-5.22 [facility] Comment on above: Performed By: #### C BC1 #### [facility] [address] [place], [place] [address] RDW SD 40.6 fl Normal 36.4-46.3 [facility] Comment on above: Performed By: #### C BC1 #### [facility] [address] [place], [place] [address] WBC #/vol (Bld) 9.85 thou/cmm Normal 3.98-10.04 [facility] Comment on above: Performed By: #### C BC1 #### [facility] [address] [place] [id number] LD NOTEon 11-30-2017 LD NOTE HNO ID: [id number] thor: Marie Lema (Res) LendeService: ObstetricsAuthor Type: ResidentType: LANDD Delivery NoteFiled: 11/30/2017 6:19 PMNote Text: -------Attestation signed by Serenity Maldonado MD at 12/01/2017 6:04 PMI saw and evaluated the patient. I reviewed the resident's note and agree,except that patient seen by [facility] (patient has FAS, fetus with multipleanomlaies) service, consult placed to [facility] for management of labor AND delivery.Essential primip presented at 39w with PROM, had Pugh balloon AND Pitocin foraugmentaion. Late in labor noted tachycardia that improved with IVFB ANDTylenol (mother rico had elevated temp but felt warm). [facility] NICU team for evaluation (was allowed tohave delivery to abdomen AND 30 sec delay for cord clamping). Pushed well AND hadSVD of a viable female (APGARS 8,9, weight of 3200g/7#1oz) over intactperineum. Uterus slightly boggy after delivery, responded to massage AND Pitocininfusion, EBL ~500cc.Serenity Maldonado MD ----OBSTETRICSDELIVERY SUMMARY - VAGINAL DELIVERYGestational Age at Delivery: [id number] Date: 11/30/2017Service Time: 1799Keega, Zuleika Dillard [[id number]]Labor EventsRupture Date: 11/30/17Rupture Time: 224Rupture Type: PROMFluid [...] NURSING PROGon 11-30-2017 NURSING PROG HNO ID: [id number] thor: Marguerite (Rn) Sandy Albarranice: (none)Author Type: Registered NurseType: Nursing Progress NoteFiled: 11/30/2017 7:06 PMNote Text: INTRODUCED SELF TO PATIENT AND SUPPORT PERSONS. PLAN OF CARE DISCUSSED.ASSESSMENT PERFORMED. PATIENT DENIES COMPLAINTS. Normal [facility] NURSING PROG HNO ID: [id number] thor: Darcie (Rn) Sandy Landerosice: NursingAuthor Type: Registered NurseType: Nursing Progress NoteFiled: 11/30/2017 10:03 AMNote Text:Patient up to shower for comfort. Boyfriend at side. On telemetrymonitors. RN remains in room. FHR difficult to maintain continuoustracing Normal [facility] NURSING PROG HNO ID: [id number] Author: Norah (Rn) KARRI Eastman Service: Nursing Author Type: Registered Nurse Type: Nursing Progress Note Filed: 11/30/2017 7:18 AM Note Text: Report given to Darcie DURAN and care transferred at this time. Normal [facility] PROCEDUREon 11-30-2017 PROCEDURE HNO ID: [id number] thor: Aaron (Idea Worker) PoloService: AnesthesiologyAuthor Type: Nurse AnesthetistType: ProceduresFiled: 11/30/2017 12:30 PMNote Text:OB ANESTHESIA PROCEDURE:EPIDURAL LABOR PCEA ANALGESIAPROCEDURE DATE: 11/30/2017PROCEDURE START TIME: 1225The patient was placed in a sitting position. Timeout was performed andinformed consent confirmed (see nurse's documentation). Using steriletechnique, the patient's back was prepped and draped. Skin site wasinfiltrated with local anesthetic.Beginning Pain Score: 8 out of 10VItals:Last Pulse18 : 81 Last BP11/30/17 : 138/81Needle: 17 gauge TuohyDepth of Needle: 4 cmDepth of Catheter at Skin: 9 cmCm of Catheter in Epidural Space: 5 cmInterspace: approximately L2-W4Eqqish of Attempts: 1Wet Tap Complication: NoDural Puncture [...] nurses' documentation for additional vitals.SIGNATURE: Hema Cuellar APRN.ELECTRICAL ESTIMATOR PATIENT NAME: Zuleika LambATE: November 30, 2017 : 12:27 PM PAGER/CONTACT #: [facility] PROGRESSon 11-30-2017 PROGRESS HNO ID: [id number] thor: Marie Lema (Res) LendeService: ObstetricsAuthor Type: ResidentType: Progress NotesFiled: 11/30/2017 5:04 PMNote Text:UpdatePatient is pushing in the OR. Cat I FHRT with baseline around 160s. updated and in house.Franki Neri 2017 5:04 PM [facility] PROGRESS HNO ID: [id number] Author: Darcie (Rn) KARRI Landeros Service: Nursing Author Type: Registered Nurse Type: Progress Notes Filed: 11/30/2017 3:29 PM Note Text: Patient feeling pressure, cervical exam 9.5 cm. NICU notified. Patient feels warm, but temp 36.9. [facility] PROGRESS HNO ID: [id number] thor: Marie Lema (Res) LendeService: ObstetricsAuthor Type: [...] pt comfortable4. s/p FB5. [place] [address]. anomalies- prominent cisterna magna, bilateral periventrcularnodular heterotopia, [...] EF 55%.10. H/o maternal clubfoot-s/p repair as cgrrei33. H/o tobacco abuse12. Cat II- Isolate late decelerations. Moderate variability. Continuingto make cervical change. Not on Cat II protocol.SIGNATURE: Marie Hassan DO PATIENT NAME: Zuleika LambATE: November 30, 2017 : 1:35 PM PAGER/CONTACT #: [phone] Normal [facility] PROGRESS HNO ID: [id number] thor: Yolanda (Res) SnyderService: ObstetricsAuthor Type: ResidentType: [...] pt comfortable4. s/p FB5. [place] [address]. anomalies- prominent cisterna magna, bilateral periventrcularnodular heterotopia, [...] EF 55%.10. H/o maternal clubfoot-s/p repair as pacajg00. H/o tobacco abuseSIGNATURE: Yolanda Barbosa DO PATIENT NAME: [facility] Hernandezwestern [facility] hospitalnDATE: November 30, 2017 : 1:11 PM PAGER/CONTACT #: [phone] Normal [facility] PROGRESS HNO ID: [id number] thor: Yolanda Almonteervice: ObstetricsAuthor Type: ResidentType: Progress [...] Pit per protocol3. [place] [address]. [place] [address]. anomalies- prominent cisterna magna, bilateral periventrcularnodular heterotopia, [...] EF 55%.10. H/o maternal clubfoot-s/p repair as mestwp14. H/o tobacco abuseSIGNATURE: Yolanda Barbosa DO PATIENT NAME: Zuleika BecerrilnDATE: November 30, 2017 : 11:05 AM PAGER/CONTACT #: [phone] Normal [facility] PROGRESS HNO ID: [id number] Author: Darcie (Rn) KARRI Landeros Service: Nursing Author Type: Registered Nurse Type: Progress Notes Filed: 11/30/2017 10:35 AM Note Text: Unable to find labwork for chart. Normal [facility] PROGRESS HNO ID: [id number] thor: Marie Lema (Res) LendeService: ObstetricsAuthor Type: [...] RN)Rupture Time: 224 (11/30/17 0853 : Darcie MagañaRn) Tigre RN)Amniotic Fluid Color: Clear (11/30/17 0853 : Darcie (Rn) Tigre RN)Additional Findings: NoneFETAL MONITORINGFHT: 135s Moderate/acelerations present/decelerations absentToco: 2-4 minutesCategory: ILABSDiagnostic tests reviewed for today's visit: Most recent labs and imagingresults.Assessment/ Plan27 year old EGA:39w0d. Admitted for augmentation for PROM1. GBS-2. Pit per protocol3[place] [address]. [place] [address]. anomalies- prominent cisterna magna, bilateral periventrcularnodular heterotopia, [...] EF 55%.10. H/o maternal clubfoot-s/p repair as dvxspy38. H/o tobacco abuse?SIGNATURE: Marie Hassan DO PATIENT NAME: Zuleika LambATE: November 30, 2017 : 10:31 AM PAGER/CONTACT #: [phone] Normal [facility] PROGRESS HNO ID: [id number] thor: Darcie (Rn) Tigre, RNService: NursingAuthor Type: Registered NurseType: Progress NotesFiled: 11/30/2017 10:13 AMNote Text:Patient remains in shower. RN and boyfriend at side. EFM on telemetryand adjusted while patient in shower. Difficult to keep baby on. Normal [facility] PROGRESS HNO ID: [id number] thor: Yolanda (Res) SnyderService: ObstetricsAuthor Type: ResidentType: Progress NotesFiled: 11/30/2017 7:35 AMNote Text:In to place FB. Pt tolerated procedure well. Continues to leak clearfluid. Pt uncomfortable with contractions.Cat I FHT, reactive with accelsToco: 2-5 minsHeather Romina, PGY-1Obstetrics and GynecologyPager [phone]/7:34 AM Normal [facility] Type and Screenon 11-30-2017 ABO group Nom (Bld) A Normal [facility] Comment on above: Performed By: #### T &S #### [place] [address] Comment See Below Normal [facility] Comment on above: Result Comment: Scre en &/or Xmatch expires in 3 days at 12 midnight. Redraw patient at that time. Performed By: #### T &S #### [place] [address] RH Type Positive Normal [facility] Comment on above: Performed By: #### T &S #### [place] [address] Progress Noteon 11-28-2017 Cook Candy Authentication Interface Message Text Routine VisitSubjective: Zuleika Villalta is being seen today for her obstetrical visit. She is at 67b6kocaluhezh. Patient reports no complaints. Movement: normal. She isscheduled for IOL Saturday evening for anticipated Donna delivery. Plans to haveher care with Dr. [...] Memorial HospitalInduction at 39 weeks; CYTOTEC IOL 18 at 5 pm at [facility]. Pre-Procedure formdone (CG)GBS culture: [...] [facility] and contraception with Dr. Ivan.The total patient time of the visit was 15 minutes, of which greater than 50% ofthe time was spent counseling and coordinating care. Normal [facility] Progress Noteon 11-22-2017 Cook Candy Authentication Interface Message Text FTC plan of care faxed to [facility] in event pt would arrive for urgent management. Normal [facility] Progress Noteon 11-21-2017 Cook Candy Authentication Interface Message Text Routine VisitSubjective: Zuleika Villalta is being seen today for her obstetrical visit. She is at 62b7zoxovlvjvr. Patient reports that she went to [facility] last night due toconcerns for [...] CYTOTEC IOL 12-02-17 at 5 pm at [facility]. Pre-Procedure formdone (CG)GBS culture: [...] The patient is scheduled for IOL on12/02/17.Oksana maado MD Normal [facility] Progress Noteon 11-12-2017 Cook Candy Authentication Interface Message Text Call from [facility] that pt presented there in labor. [facility] plan of care and ACOGs faxed by Toan Chen. Provided after hours MFM number provided. Normal [facility] Group B Strep Cultureon 10-16 Group B Strep Culture Group B Strep Cult ure: No Group B Streptococci isolated. Source: VAG Collected: 11/07/17 09:00 Site: Vaginal/Rectal Received : 11/07/17 22:01Group B Strep Culture FINAL 11/10/17 08:34 No Group B Streptococci isolated. Normal [facility] Comment on above: Performed By: #### G [facility] ####[facility] [place] MARCIA Oquendo [phone] Progress Noteon 11-07-2017 Cook Candy Authentication Interface Message Text Routine VisitSubjective: Zuleika Villalta is being seen today for her obstetrical visit. She is at 68t9ghbttnixhj. Patient reports occasional nausea. No emesis. She [...] OB visit and BPP.Oksana Amado MD Normal [facility] Progress Noteon 10-24-2017 Cook Candy Authentication Interface Message Text Routine VisitSubjective: Zuleika [...] 87.7 kg (193 lb 5.5 oz) LMP 09/16/2017Physical ExamFHT: PositivePresentation: CephalicUterine Size: S=DPelvic Exam: No [...] echo [facility] POC reviewedFollow up 2 weeks.The total patient time of the visit was 15 minutes, of which greater than 50% ofthe time was spent counseling and coordinating care.Marco Antonio Antonio DO Normal [facility] Progress Noteon 10-15-2017 Cook Candy Authentication Interface Message Text Ped selection made. Updated prenatals Normal [facility] Progress Noteon 10-08-2017 Cook Candy Authentication Interface Message Text Thank you for [...] size. There was a patent foramen ovale, bewyzetzj-uf-ovzt shunt.Tricuspid valve:Normal tricuspid valve. There was normal [...] fetuses and in fetuses with CHD and zqyziyewoszoy06e34, the ratio being below 0.3 )Impression and recommendations.1) Abnormal 3-vessel view, ascending aorta was moderately dilated. 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 thymic thoracic ratio (TT-ratio)=0.1 ( TT-ratio 0.44 in normal fetuses and in fetuses with CHD and ilpzrozttlfgx72f34, the ratio being below 0.3 )5) Normal [...] treatments, follow up fetalechocardiograms and follow ups.10) [place] Echocardiogram prior to the discharge from the nursery or earlier ifcardiac condition/status changes in any way. [place] follow up and treatmentshould be determined on the basis of the findings on the initial echocardiogram.Counseling and/or coordination of care was greater than 35 minutes which is morethan 50% of the total time of 60 minutes spent on the encounter. Normal [facility] Cook Candy Authentication Interface Message Text Initial VisitSubjective: Zuleika [...] weeks for OB visit and BPP in [place].Oksana Amado MD Normal [facility] Cytogenomic Microarray Nivia sis of Bloodon 09-10-2017 Cytogenomic Microarray Analysis of Blood SEE BELOW Normal [facility] Comment on above: Result Comment: SPEC IMEN: BLOODCLINICAL INFORMATION: Learning disability[F81.9]TEST: CYTOGENOMIC MICROARRAY ANALYSISRESULT SUMMARY:Normal femaleNOMENCLATURE:arr(1-22,X)r5HSKEYOGNCHUFTH & COMMENTS:The cytogenomics microarray analysis indicated no [...] whole genome microarray analysis was performed the FDA-clearedLendLayer(R) Dx platform, which contains approximately 2.7million markers, including 1,953,246 unique non-polymorphic copy numberprobes and 743,304 single nucleotide polymorphism (SNP) probes. Thegenome-wide functional resolution of this assay is approximately 25 kbfor deletions and 50 kb for duplications. This microarray andassociated software (Chromosome Analysis Suite Dx) were manufactured [employer] and [employer] and used by the Cytogenetics and Molecular DiagnosticsLaboratories of [facility] for the purpose ofidentifying [...] further information regarding intendeduse and limitations, see [email or web address].Note: The Cytogenetics Laboratory has this patient's blood [...] additional testing. 09/19/2017 BIGG GARCIA, PH.D., [facility], [facility] 09/19/2017 Performed By: #### M [facility] ####[facility] [address] [phone] MRI (SINGLE)on 018 MRI (SINGLE) MRI (SINGLE)CL [...] Dr. AJ CAMILO at 09/10/2017 10:21 Normal [facility] Progress Noteon 09-10-2017 Cook Candy Authentication Interface Message Text The total patient time of the visit was 15 minutes, of which greater than 50% of the time was spent counseling and coordinating care. Normal [facility] Auto Diffon 09-03-2017 Basophils Auto #/vol (Bld) 0.1 E3/mcL Normal 0.0-0.2 [facility] Comment on above: Order Comment: Order Added by Discern Expert. Performed By: #### 2 [id number] ####KADENMorelia [address] [place] [address] Basophils/100 WBC Auto (Bld) 0.5 % Normal 0.0-2.0 [facility] Comment on above: Order Comment: Order Added by Discern Expert. Performed By: #### 2 [id number] ####KADENMorelia BairdSsvJmzz[address] [place] [address] Eos Absolute 0.0 E3/mcL Normal 0.0-0.7 [facility] Comment on above: Order Comment: Order Added by Discern Expert. Performed By: #### 2 [id number] ####KADEN [address]airdKjbUhog[address] [place] [address] Eosinophils/100 leukocytes 0.4 % Normal 0.0-11.0 [facility] Comment on above: Order Comment: Order Added by Discern Expert. Performed By: #### 2 [id number] ####KDAEN [address]Kogs[address] [place] [address] Lymphocytes 1.3 E3/mcL Normal 1.2-3.4 [facility] Comment on above: Order Comment: Order Added by Discern Expert. Performed By: #### 2 [id number] ####KADEN [address]air[address]gjSr[address] [place] [address] Lymphocytes/100 leukocytes 13.1 % Low 20.0-55.0 [facility] Comment on above: Order Comment: Order Added by Discern Expert. Performed By: #### 2 362939 ####KADENMorelia BairdMppKiax[address] [place] [address] Anson Absolute 0.4 E3/mcL Normal 0.0-0.7 [facility] Comment on above: Order Comment: Order Added by Discern Expert. Performed By: #### 2 180639 ####KADEN [address]ZrsIzhf[address] [place] [address] Monocytes/100 leukocytes 4.3 % Normal 0.0-10.0 [facility] Comment on above: Order Comment: Order Added by Discern Expert. Performed By: #### 2 161502 ####KADEN [address] [place] [id number] Neutro Absolute 8.4 E3/mcL High 1.4-6.5 [facility] Comment on above: Order Comment: Order Added by Discern Expert. Performed By: #### 2 184804 ####KADEN [address] [place] [address] Neutro Auto 81.7 % High 37.0-75.0 [facility] Comment on above: Order Comment: Order Added by Discern Expert. Performed By: #### 2 [id number] ####KADEN [address] [place] [id number] CBC w/ Auto Diffon 8 Erythrocyte distribution width Auto Ratio (RBC) 13.1 % Normal 11.5-14.5 [facility] Comment on above: Performed By: #### 2 440091 ####KADEN [address] [place] [address] Erythrocytes (RBC) 3.90 E6/mcL Normal 3.90-5.40 [facility] Comment on above: Performed By: #### 2 925427 ####KADEN [address] [place] [id number] Hematocrit (HCT) 34.7 % Low 36.0-48.0 [facility] Comment on above: Performed By: #### 2 974372 ####KADEN [address] [place] [address] Hemoglobin mass conc (Bld) 11.8 g/dL Low 12.0-16.0 [facility] Comment on above: Performed By: #### 2 457591 ####KADEN [address] [place] [id number] MCH 30.3 pg Normal 27.0-31.0 [facility] Comment on above: Performed By: #### 2 605272 ####KADEN [address] [place] [id number] MCHC mass conc (RBC) 34.2 g/dL Normal 33.0-37.0 [facility] Comment on above: Performed By: #### 2 462445 ####KADEN [address] [place] [address] MCV 88.8 fL Normal 78.0-100.0 [facility] Comment on above: Performed By: #### 2 599215 ####KADEN [address] [place] [address] Platelet mean volume (PMV) 7.3 fL Low 7.4-11.0 [facility] Comment on above: Performed By: #### 2 929821 ####KADEN [address] [place] [id number] Platelets 218 E3/mcL Normal 130-400 [facility] Comment on above: Performed By: #### 2 480071 ####KADEN [address] [place] [address] WBC (Leukocytes) 10.2 E3/mcL Normal 3.6-11.0 [facility] Comment on above: Performed By: #### 2 321242 ####KADEN [address] [place] [address] Gest Scr Glu 1 Hron 09-04-19 18 Glucose mass conc 113 mg/dL Normal 70-140 [facility] Comment on above: Performed By: #### 2 [id number] ####KADEN [address] [place] [address] FISH Probeon 08-13-2017 Protein mass conc SEE BELOW Normal [facility] Comment on above: Result Comment: SPEC IMEN: BLOOD - [id number] INFORMATION:TEST: FISH Analysis of the DiGeorge/VCFS Region [...] Metaphase images: 2The Vysis LSI DARREN Spectrum Republic Probe contains the DARREN gene (3'non-coding region of TUPLE1, L69E631, and [id number]. The Vysis LSI ARSAspectrum Green Probe includes [...] performance characteristics determinedby the Cytogenetics Laboratory of [facility]. It hasnot been cleared or approved by the U.S. Food and Drug Administration.The FDA has determined that such clearance or approval is notnecessary. This test is used for clinical purposes. It should not beregarded as investigational or for research. This laboratory iscertified under the Clinical Laboratory Improvement Amendments of 1988(CLIA-88) as qualified to perform high complexity clinical laboratorytesting.REFERENCE: Rhonda NICOLE, Ruano E, Kristin M, Cj RV. Fluorescence in situhybridization detection of chromosome 22q11.2 microdeletions invelocardiofacial syndrome patients with widely variable manifestations. Am J Med Barbara 66:250-256,1996. BIGG GARCIA, PH.D., [facility], [facility] 08/16/2017 Performed By: #### F MARIA ####[address] [phone] Progress Noteon 08-13-2017 Cook Candy Authentication Interface Message Text Met with patient [...] findingsWork History: unemployed. Information on [facility] services given.Consent to share information with [facility] team, OB and endless track vehicle supervisor signed. Pt plans to deliver in [place] with [facility]. Currently with Dr. Shekhar Dyson.Software Support Analyst is undecided. [facility] list provided and discussed importance ofselection [...] was spent counseling and coordinating care. Normal [facility] Cook Candy Authentication Interface Message Text Thank you for [...] size. There was a patent foramen ovale, vxsaoxbwf-rv-tvlc shunt.Tricuspid valve:Normal tricuspid valve. There was normal [...] encounter. Normal [facility] Progress Noteon 07-18-2017 Cook Candy Authentication Interface Message Text [facility]- MEDICINE CONSULTReferring/Requestin g Provider: VINI FranklinCP: [...] no palpitations. She usually doesnot see a crusher dry ground mica, but did have a recent echo due [...] Stroke Maternal Grandmother Heart Disease Maternal Grandmother SC Clotting Disorder Maternal Grandfather Miscarriages / Stillbirths [...] as a child 07/18/2017 Consider evaluation with aids social worker to assess for any needs duringpregnancy or after. Will have genetic consult with [facility] evaluation. cardiac anomaly complicating , antepartum 07/18/2017 Dilated aortic root seen on ultrasound along with large umbilical cordvarix, dolichocephaly DW Dr. Zazueta, verbal order to refer to [facility] Will be scheduled with pediatric cardiology. Also, patient and family members have a history of learning disabilities,including an individual learning plan in school. She will talk to her familymembers and bring as much information as is available for her genetics consult.She has transportation to [place] and is willing to be [facility].The total patient time of the visit was 30 minutes, of which was greater than50% of the time was spent counseling and coordinating care. Normal [facility] IGP W/hpv Rfx [id number] 05-07 Diagnosis: See Ref Lab Report Normal [facility] Comment on above: Order Comment: Thin Prep. Performed By: #### 2 [id number] ####KADEN [address]ox[address] [place] [address] C Urineon 05-03-2017 C Urine Final Report: Normal skin alonso isolated Normal [facility] Comment on above: Performed By: #### 2 852684 ####KADEN [address]jsJhxo[address] [place] [address] RPRon 05-03-2017 RPR Ql Non-Reactive Normal Non-Reacti ve [facility] Comment on above: Performed By: #### 2 [id number] ####KADEN SklQtnu[address]14 [place] [address] Hep Bs Agon 05-02-2017 BSA (Body Surface Area) Negative Normal Negative [facility] Comment on above: Result Comment: Perf ormed At: CB [facility] [address] [place], [place] [id number] Vincent PhD Ph:[phone] Performed By: #### 2 630759 ####KADEN [address]RomDbiu[address] [place] [address] ABO/Rh Echoon 05-01-2017 ABO/Rh E Interp... Positive Normal [facility] Comment on above: Performed By: #### 2 742516 ####KADEN BairdEiaYlva[address] [place] [address] Antibody Screen Cap...on Screen Interp... Negative Normal [facility] Comment on above: Performed By: #### 2 437712 ####KADENMorelia BairdBucUeqs[address]12 [place] [address] Auto Diffon 05-01-2017 Basophils Auto #/vol (Bld) 0.0 E3/mcL Normal 0.0-0.2 [facility] Comment on above: Order Comment: Order Added by Discern Expert. Performed By: #### 2 653989 ####KADEN Urinalysis Manual [address] [place] [address] Basophils/100 WBC Auto (Bld) 0.4 % Normal 0.0-2.0 [facility] Comment on above: Order Comment: Order Added by Discern Expert. Performed By: #### 2 810795 ####KADEN Urinalysis Manual [address] [place] [address] Eos Absolute 0.1 E3/mcL Normal 0.0-0.7 [facility] Comment on above: Order Comment: Order Added by Discern Expert. Performed By: #### 2 772174 ####KADEN Urinalysis Manual [address] [place] [address] Eosinophils/100 leukocytes 0.7 % Normal 0.0-11.0 [facility] Comment on above: Order Comment: Order Added by Discern Expert. Performed By: #### 2 400273 ####KADEN Urinalysis Manual [address] [place] [address] Lymphocytes 1.8 E3/mcL Normal 1.2-3.4 [facility] Comment on above: Order Comment: Order Added by Discern Expert. Performed By: #### 2 223189 ####KADEN Urinalysis Manual [address] [place] [address] Lymphocytes/100 leukocytes 17.1 % Low 20.0-55.0 [facility] Comment on above: Order Comment: Order Added by Discern Expert. Performed By: #### 2 542340 ####KADEN Urinalysis Manual [address] [place] [address] Anson Absolute 0.5 E3/mcL Normal 0.0-0.7 [facility] Comment on above: Order Comment: Order Added by Discern Expert. Performed By: #### 2 067522 ####KADEN Urinalysis Manual [address] [place] [address] Monocytes/100 leukocytes 5.0 % Normal 0.0-10.0 [facility] Comment on above: Order Comment: Order Added by Discern Expert. Performed By: #### 2 675039 ####KADEN Urinalysis Manual [address] [place] [address] Neutro Absolute 8.0 E3/mcL High 1.4-6.5 [facility] Comment on above: Order Comment: Order Added by Discern Expert. Performed By: #### 2 967049 ####KADEN Urinalysis Manual [address] [place] [address] Neutro Auto 76.8 % High 37.0-75.0 [facility] Comment on above: Order Comment: Order Added by Discern Expert. Performed By: #### 2 [id number] ####KADEN Urinalysis Manual Txarxhxtje[address]87[address] [place] [address] CBC w/ Auto Diffon 7 Erythrocyte distribution width Auto Ratio (RBC) 15.2 % High 11.5-14.5 [facility] Comment on above: Performed By: #### 2 [id number] ####KADEN Urinalysis Manual Ylkrehfhzt[address] [place] [address] Erythrocytes (RBC) 4.90 E6/mcL Normal 3.90-5.40 [facility] Comment on above: Performed By: #### 2 619138 ####KADEN Urinalysis Manual Glbznkheer5418[address] [place] [address] Hematocrit (HCT) 41.1 % Normal 36.0-48.0 [facility] Comment on above: Performed By: #### 2 021645 ####KADEN Urinalysis Manual Crtydjxxie[address] [place] [address] Hemoglobin mass conc (Bld) 13.5 g/dL Normal 12.0-16.0 [facility] Comment on above: Performed By: #### 2 252035 ####KADEN Urinalysis Manual Eegocehida5156[address] [place] [address] MCH 27.5 pg Normal 27.0-31.0 [facility] Comment on above: Performed By: #### 2 890104 ####KADEN Urinalysis Manual Censdtglqi[address] [place] [address] MCHC mass conc (RBC) 32.8 g/dL Low 33.0-37.0 [facility] Comment on above: Performed By: #### 2 113499 ####KADEN Urinalysis Manual Kbzzprehug13[address] [place] [address] MCV 83.9 fL Normal 78.0-100.0 [facility] Comment on above: Performed By: #### 2 677161 ####KADEN Urinalysis Manual Jchvymlmhg6900[address] [place] [address] Platelet mean volume (PMV) 8.0 fL Normal 7.4-11.0 [facility] Comment on above: Performed By: #### 2 372140 ####KADEN Urinalysis Manual Wtjqawbsal2677[address] [place] [address] Platelets 246 E3/mcL Normal 130-400 [facility] Comment on above: Performed By: #### 2 146901 ####KADEN Urinalysis Manual Tjghokffhc1579[address] [place] [address] WBC (Leukocytes) 10.4 E3/mcL Normal 3.6-11.0 [facility] Comment on above: Performed By: #### 2 554601 ####KADEN Urinalysis Manual Xmqootbqav911[address] [place] [address] Chlamydia GC by PCRon 2016 Chlamydia by PCR. Not Detected Normal Not Detected [facility] Comment on above: Result Comment: Xper t CT/NG Assay performance has not been evaluated in patients less than 14 years of age. Performed By: #### 2 852887 ####KADENMorelia BairdBizEhcf9654 [place] [address] Gonorrhoeae by PCR Not Detected Normal Not Detected [facility] Comment on above: Result Comment: Xper t CT/NG Assay performance has not been evaluated in patients less than 14 years of age. Performed By: #### 2 685944 ####KADENMorelia BairdRflOubs2375 [place] [address] HIV-1/2 Ag/Abon 05-01-2017 HIV-1/2 Ag/Ab Non-Reactive Normal Non-Reacti ve [facility] Comment on above: Performed By: #### 2 717658 ####KADEN [place] [address] Rubella IgG Lvlon 05-01-2017 Rubella IgG Lvl 50.8 (POS) Normal [facility] Comment on above: Result Comment: <10I U/ml NON REACTIVE: NOT [id number] IU/ml RUBELLA SPECIFIC AB PRESENT, EVALUATEFURTHER TO DETERMINE IMMUNE STATUS >15 IU/ml REACTIVE, IMMUNE Performed By: #### 2 634428 ####KADENMorelia BairdPgjPbqt8021 [place] [address] Auto Diffon 04-22-2017 Basophils Auto #/vol (Bld) 0.1 E3/mcL Normal 0.0-0.2 [facility] Comment on above: Order Comment: Order Added by Discern Expert. Performed By: #### 2 131522 ####KADEN Urinalysis Manual Fxfogkozef257[address] [place] [address] Basophils/100 WBC Auto (Bld) 0.6 % Normal 0.0-2.0 [facility] Comment on above: Order Comment: Order Added by Discern Expert. Performed By: #### 2 353468 ####KADEN Urinalysis Manual Kygomjtkok0484[address] [place] [address] Eos Absolute 0.0 E3/mcL Normal 0.0-0.7 [facility] Comment on above: Order Comment: Order Added by Discern Expert. Performed By: #### 2 759337 ####KADEN Urinalysis Manual Duewcyhtch[address] [place], [place] [id number] Eosinophils/100 leukocytes 0.2 % Normal 0.0-11.0 [facility] Comment on above: Order Comment: Order Added by Discern Expert. Performed By: #### 2 942613 ####KADEN Urinalysis Manual Wmqwjnjcrr947[address] [place] [address] Lymphocytes 1.5 E3/mcL Normal 1.2-3.4 [facility] Comment on above: Order Comment: Order Added by Discern Expert. Performed By: #### 2 554944 ####KADEN Urinalysis Manual Muzobjsodp[address] [place] [address] Lymphocytes/100 leukocytes 10.8 % Low 20.0-55.0 [facility] Comment on above: Order Comment: Order Added by Discern Expert. Performed By: #### 2 082580 ####KADEN Urinalysis Manual Vuwzcfaeyk176[address] [place] [address] Anson Absolute 0.6 E3/mcL Normal 0.0-0.7 [facility] Comment on above: Order Comment: Order Added by Discern Expert. Performed By: #### 2 272641 ####KADEN Urinalysis Manual Ergcozdxou8504[address] [place] [address] Monocytes/100 leukocytes 4.4 % Normal 0.0-10.0 [facility] Comment on above: Order Comment: Order Added by Discern Expert. Performed By: #### 2 562392 ####KADEN Urinalysis Manual Sfnxnfldiv6255[address] [place] [address] Neutro Absolute 11.3 E3/mcL High 1.4-6.5 [facility] Comment on above: Order Comment: Order Added by Discern Expert. Performed By: #### 2 739210 ####KADEN Urinalysis Manual Okkemwxhzf[address] [place] [address] Neutro Auto 84.0 % High 37.0-75.0 [facility] Comment on above: Order Comment: Order Added by Discern Expert. Performed By: #### 2 120156 ####KADEN Urinalysis Manual Mhtuztcssu670[address] [place] [address] BMPon 04-22-2017 BUN/Creatinine Ratio Unable to calc Normal 5.4-30.0 [facility] Comment on above: Performed By: #### 2 325935 ####KADEN Urinalysis Manual [address] [place] [address] Creatinine mg/dL Low 0.6-1.3 [facility] Comment on above: Performed By: #### 2 252158 ####KADEN Urinalysis Manual Weyifzlyhk[address] [place] [address] Urea nitrogen 7 mg/dL Normal 7-18 [facility] Comment on above: Performed By: #### 2 393927 ####KADEN Urinalysis Manual Zvplydzelh9474[address] [place] [address] Calcium 9.6 mg/dL Normal 8.4-10.2 [facility] Comment on above: Performed By: #### 2 076944 ####KADEN Urinalysis Manual Npdzuwpppe1532[address] [place] [address] Chloride 103 mmol/L Normal 98-107 [facility] Comment on above: Performed By: #### 2 741090 ####KADEN Urinalysis Manual Nyrvhcbuqy8596[address] [place] [address] CO2 21.7 mmol/L Low 24.0-30.0 [facility] Comment on above: Performed By: #### 2 217569 ####KDAEN Urinalysis Manual Fmntwgsgcb8100[address] [place] [address] Glucose mass conc 89 mg/dL Normal 70-99 [facility] Comment on above: Performed By: #### 2 720323 ####KADEN Urinalysis Manual Zipyqkojnj5389[address] [place] [address] Potassium molar conc 3.6 mmol/L Normal 3.5-5.1 [facility] Comment on above: Performed By: #### 2 392323 ####KADEN Urinalysis Manual Uotzavcbsa1475[address] [place] [address] Sodium 136 mmol/L Normal 136-145 [facility] Comment on above: Performed By: #### 2 550906 ####KADEN Urinalysis Manual Cmrkbobflm9220[address] [place] [address] CBC w/ Auto Diffon 7 Erythrocyte distribution width Auto Ratio (RBC) 14.8 % High 11.5-14.5 [facility] Comment on above: Performed By: #### 2 615876 ####KADEN Urinalysis Manual Kgdyaosypu8906[address] [place] [address] Erythrocytes (RBC) 4.96 E6/mcL Normal 3.90-5.40 [facility] Comment on above: Performed By: #### 2 222037 ####KADEN Urinalysis Manual Xroayshamc0869[address] [place] [address] Hematocrit (HCT) 40.9 % Normal 36.0-48.0 [facility] Comment on above: Performed By: #### 2 784552 ####KADEN Urinalysis Manual Plzrzjsszb6810[address] [place] [address] Hemoglobin mass conc (Bld) 13.5 g/dL Normal 12.0-16.0 [facility] Comment on above: Performed By: #### 2 031789 ####KADEN Urinalysis Manual Rpazahfwxd217[address] [place] [address] MCH 27.2 pg Normal 27.0-31.0 [facility] Comment on above: Performed By: #### 2 729479 ####KADEN Urinalysis Manual Wfymrtdprq4660[address] [place] [address] MCHC mass conc (RBC) 33.0 g/dL Normal 33.0-37.0 [facility] Comment on above: Performed By: #### 2 913261 ####KADEN Urinalysis Manual W[address]hnttprdb2624[address] [place] [address] MCV 82.4 fL Normal 78.0-100.0 [facility] Comment on above: Performed By: #### 2 579344 ####KADEN Urinalysis Manual Loqepwpwke[address] [place] [address] Platelet mean volume (PMV) 8.0 fL Normal 7.4-11.0 [facility] Comment on above: Performed By: #### 2 632652 ####KADEN Urinalysis Manual Vlwctmppdb[address] [place] [address] Platelets 237 E3/mcL Normal 130-400 [facility] Comment on above: Performed By: #### 2 232892 ####KADEN Urinalysis Manual [address]rxqebesz1855 [place] [address] WBC (Leukocytes) 13.5 E3/mcL High 3.6-11.0 [facility] Comment on above: Performed By: #### 2 947983 ####KADEN Urinalysis Manual [address]wwkb8269 [place] [address] UA Completeon 04-22-2017 UA Blood Negative Normal Negative [facility] Comment on above: Performed By: #### 2 725882 ####KADEN Urinalysis Manual Qlscmaozlg8680[address] [place] [address] UA Ascorbic Acid 40 mg/dL High <=19 [facility] Comment on above: Performed By: #### 2 308224 ####KADEN Urinalysis Manual Wsjukxipoi0565[address] [place] [address] UA Bacteria 3+ /HPF Abnormal None [facility] Comment on above: Performed By: #### 2 028649 ####KADEN Urinalysis Manual Xjekmqkkex9069[address] [place] [address] UA Clarity SltCloudy Abnormal Clear [facility] Comment on above: Performed By: #### 2 775396 ####KADEN Urinalysis Manual [address]kxj[address] [place] [address] UA Leuk Est Negative Normal Negative [facility] Comment on above: Performed By: #### 2 552381 ####KADEN Urinalysis Manual Dnctdpxttz2429[address] [place] [address] UA Mucous Few Abnormal Trace [facility] Comment on above: Performed By: #### 2 875429 ####KADEN Urinalysis Manual Rspjmsnehh9798 [place] [address] UA Nitrite Negative Normal Negative [facility] Comment on above: Performed By: #### 2 641766 ####KADEN Urinalysis Manual [address]jvzochksm[address] [place] [address] UA pH 8.0 Normal 4.6-8.0 [facility] Comment on above: Performed By: #### 2 090621 ####KADEN Urinalysis Manual Yhfiumcegx8711 [place] [address] UA Protein Negative Normal Negative [facility] Comment on above: Performed By: #### 2 526187 ####KADEN Urinalysis Manual Acrotvlixo4239[address] [place] [address] UA Spec Grav 1.012 Normal 1.003-1.03 0 [facility] Comment on above: Performed By: #### 2 610194 ####KADEN Urinalysis Manual Efyhxvgqsb3094[address] [place] [address] UA Squam Epithelial 0-5 Normal 0-5 [facility] Comment on above: Performed By: #### 2 400330 ####KADEN Urinalysis Manual Rwqsbjtbtx7014[address] [place] [address] UA Urobilinogen Negative Normal [facility] Comment on above: Performed By: #### 2 039765 ####KADEN Urinalysis Manual B[address]rcbqxnre23[address] [place] [address] UA WBC 0-5 Normal 0-5 [facility] Comment on above: Performed By: #### 2 385266 ####KADEN Urinalysis Manual Ynmxrxeg[address] [place] [address] Urine, color Yellow Normal Yellow [facility] Comment on above: Performed By: #### 2 388793 ####KADEN Urinalysis Manual Fymevjcvcp3235[address] [place] [address] Urine, glucose Negative Normal Negative [facility] Comment on above: Performed By: #### 2 318368 ####KADEN Urinalysis Manual Rpyijythba[address] [place] [address] Urine, ketones presence 1+ Abnormal Negative [facility] Comment on above: Performed By: #### 2 154298 ####KADEN Urinalysis Manual Kepgjqaqcc9224[address] [place] [address] Urine, urobilinogen Negative Normal Negative [facility] Comment on above: Performed By: #### 2 380887 ####KADEN Urinalysis Manual Otnwipukkj[address] [place] [address] eGFRon 04-22-2017 eGFR AA >60 Normal [facility] Comment on above: Order Comment: Order added by Discern Expert. Performed By: #### 2 418614 ####KADEN Urinalysis Manual Znzypeknyj2097 [place] [address] eGFR (non-black) mL/min/{1.73_m2} Normal [facility] Comment on above: Order Comment: Order added by Discern Expert. Performed By: #### 2 652133 ####KADEN Urinalysis Manual Fwigqzbiad1648 [place] [address] C Urineon 04-20-2017 C Urine Final Report: Normal skin alonso isolated Normal [facility] Comment on above: Performed By: #### 2 626452 ####KADEN Urinalysis Manual Wipdtcnuvp8102 [place] [address] BMPon 04-18-2017 BUN/Creatinine Ratio 15.0 ratio Normal 5.4-30.0 [facility] Comment on above: Performed By: #### 2 523485 ####KADENMorelia BairdIczSjxz6985 [place] [address] Creatinine 0.6 mg/dL Normal 0.6-1.3 [facility] Comment on above: Performed By: #### 2 210033 ####KADEN WlyZlnt0821 [place] [address] Urea nitrogen 9 mg/dL Normal 7-18 [facility] Comment on above: Performed By: #### 2 043797 ####KADEN WtcOchj1920 [place] [address] Calcium 9.6 mg/dL Normal 8.4-10.2 [facility] Comment on above: Performed By: #### 2 454124 ####KADEN QqtIjrv1862 [place] [address] Chloride 102 mmol/L Normal 98-107 [facility] Comment on above: Performed By: #### 2 256509 ####KADEN KyxAvfs1798 [place] [address] CO2 23.3 mmol/L Low 24.0-30.0 [facility] Comment on above: Performed By: #### 2 590172 ####KADEN HezQusl6885 [place] [address] Glucose mass conc 93 mg/dL Normal 70-99 [facility] Comment on above: Performed By: #### 2 219259 ####KADEN XkoAnmi9237 [place] [address] Potassium molar conc 3.5 mmol/L Normal 3.5-5.1 [facility] Comment on above: Performed By: #### 2 509533 ####KADEN OajNfuc9665 [place] [address] Sodium 136 mmol/L Normal 136-145 [facility] Comment on above: Performed By: #### 2 431097 ####KADEN PxdHqsn9633 [place] [address] UA Completeon 04-18-2017 UA Blood Negative Normal Negative [facility] Comment on above: Performed By: #### 2 448101 ####KADEN Urinalysis Manual Zhacaiubtv6955[address] [place] [address] UA Amorph Chastity 2+ /HPF Abnormal None [facility] Comment on above: Performed By: #### 2 567265 ####KADEN Urinalysis Manual Kdpdoeqdpn[address] [place] [address] UA Ascorbic Acid 40 mg/dL High <=19 [facility] Comment on above: Performed By: #### 2 065828 ####KADEN Urinalysis Manual Nurxyhedhv5277[address] [place] [address] UA Clarity Cloudy Abnormal Clear [facility] Comment on above: Performed By: #### 2 712738 ####KADEN Urinalysis Manual Licroxfful9266 [place] [address] UA Leuk Est Negative Normal Negative [facility] Comment on above: Performed By: #### 2 052223 ####KADEN Urinalysis Manual Qgglkyejrc1527 [place] [address] UA Mucous Trace Abnormal Trace [facility] Comment on above: Performed By: #### 2 612188 ####KADEN Urinalysis Manual Nlsfwbwvrh024[address] [place] [address] UA Nitrite Negative Normal Negative [facility] Comment on above: Performed By: #### 2 793804 ####KADEN Urinalysis Manual Xtefylfnss[address] [place] [address] UA pH 7.0 Normal 4.6-8.0 [facility] Comment on above: Performed By: #### 2 204313 ####KADEN Urinalysis Manual Hbmrcelqsk7375 [place] [address] UA Protein Negative Normal Negative [facility] Comment on above: Performed By: #### 2 166871 ####KADEN Urinalysis Manual Emvkqajkgv0213 [place] [address] UA Spec Grav 1.018 Normal 1.003-1.03 0 [facility] Comment on above: Performed By: #### 2 469313 ####KADEN Urinalysis Manual Jvxvcswtfu1580 [place] [address] UA Squam Epithelial 0-5 Normal 0-5 [facility] Comment on above: Performed By: #### 2 312652 ####KADEN Urinalysis Manual Ofhnjkpkva[address] [place] [address] UA Urobilinogen Negative Normal [facility] Comment on above: Performed By: #### 2 361614 ####KADEN Urinalysis Manual Aeoypmqugt5726[address] [place] [address] Urine, color Yellow Normal Yellow [facility] Comment on above: Performed By: #### 2 327859 ####KADEN Urinalysis Manual Nfsyiplpey45[address] [place] [address] Urine, glucose Negative Normal Negative [facility] Comment on above: Performed By: #### 2 687685 ####KADEN Urinalysis Manual Zeyubbdudz9380[address] [place] [address] Urine, ketones presence 2+ Abnormal Negative [facility] Comment on above: Performed By: #### 2 373540 ####KADEN Urinalysis Manual Lwuqporzfd[address] [place] [address] Urine, urobilinogen Negative Normal Negative [facility] Comment on above: Performed By: #### 2 953226 ####KADEN Urinalysis Manual Grgsbmlwja[address] [place] [address] eGFRon 04-18-2017 eGFR (non-black) mL/min/{1.73_m2} Normal [facility] Comment on above: Order Comment: Order added by Discern Expert. Performed By: #### 1 9098544 ####KADEN BairdTbgMuob8567 [place] [address] eGFR AA >60 Normal [facility] Comment on above: Order Comment: Order added by Discern Expert. Performed By: #### 1 9360248 ####KADEN BairdMbfGyjf8094 [place] [address] Auto Diffon 04-11-2017 Basophils Auto #/vol (Bld) 0.1 E3/mcL Normal 0.0-0.2 [facility] Comment on above: Order Comment: Order Added by Discern Expert. Performed By: #### 2 608140 ####KADEN BairdJqrCtrh1918 [place] [address] Basophils/100 WBC Auto (Bld) 0.7 % Normal 0.0-2.0 [facility] Comment on above: Order Comment: Order Added by Discern Expert. Performed By: #### 2 621578 ####KADEN BairdRsoNfbu7485 [place] [address] Eos Absolute 0.0 E3/mcL Normal 0.0-0.7 [facility] Comment on above: Order Comment: Order Added by Discern Expert. Performed By: #### 2 475486 ####KADEN BairdYvmOlnx5993 [place] [address] Eosinophils/100 leukocytes 0.1 % Normal 0.0-11.0 [facility] Comment on above: Order Comment: Order Added by Discern Expert. Performed By: #### 2 676046 ####KADEN BairdTrfZnej7593 [place] [address] Lymphocytes 1.5 E3/mcL Normal 1.2-3.4 [facility] Comment on above: Order Comment: Order Added by Discern Expert. Performed By: #### 2 939202 ####KADEN BairdOshErpm8176 [place] [address] Lymphocytes/100 leukocytes 17.2 % Low 20.0-55.0 [facility] Comment on above: Order Comment: Order Added by Discern Expert. Performed By: #### 2 894576 ####KADEN BairdNtxYfbf7597 [place] [address] Anson Absolute 0.6 E3/mcL Normal 0.0-0.7 [facility] Comment on above: Order Comment: Order Added by Discern Expert. Performed By: #### 2 675571 ####KADEN Luceroo1025 [place] [address] Monocytes/100 leukocytes 6.6 % Normal 0.0-10.0 [facility] Comment on above: Order Comment: Order Added by Discern Expert. Performed By: #### 2 431768 ####KADEN [address] [place] [id number] Neutro Absolute 6.7 E3/mcL High 1.4-6.5 [facility] Comment on above: Order Comment: Order Added by Discern Expert. Performed By: #### 2 622442 ####KADEN [address] [place] [address] Neutro Auto 75.4 % High 37.0-75.0 [facility] Comment on above: Order Comment: Order Added by Discern Expert. Performed By: #### 2 278179 ####KADEN [address] [place] [address] BMPon 04-11-2017 BUN/Creatinine Ratio 12.9 ratio Normal 5.4-30.0 [facility] Comment on above: Performed By: #### 2 307655 ####KADENMorelia BairdNtiAlxk3862 [place] [address] Creatinine 0.7 mg/dL Normal 0.6-1.3 [facility] Comment on above: Performed By: #### 2 650605 ####KADENMorelia BaiDbjMlbz2710 [place] [address] Urea nitrogen 9 mg/dL Normal 7-18 [facility] Comment on above: Performed By: #### 2 478400 ####KADENMorelia BairdMutVchg1013 [place] [address] Calcium 9.5 mg/dL Normal 8.4-10.2 [facility] Comment on above: Performed By: #### 2 595591 ####KADEN Bai1025 [place] [address] Chloride 105 mmol/L Normal 98-107 [facility] Comment on above: Performed By: #### 2 915005 ####KADEN Bai1025 [place] [address] CO2 22.5 mmol/L Low 24.0-30.0 [facility] Comment on above: Performed By: #### 2 219201 ####KADEN HsrDpyl5848 [place] [address] Glucose mass conc 92 mg/dL Normal 70-99 [facility] Comment on above: Performed By: #### 2 028164 ####KADENMorelia BaiKdrJaxo8129 [place] [address] Potassium molar conc 3.6 mmol/L Normal 3.5-5.1 [facility] Comment on above: Performed By: #### 2 591323 ####KADEN KyzWqrf4852 [place] [address] Sodium 137 mmol/L Normal 136-145 [facility] Comment on above: Performed By: #### 2 727017 ####KADEN XelHotp4022 [place] [address] BhCG Quanton 04-11-2017 Beta hCG Qnt 8564.0 mIU/m Normal [facility] Comment on above: Result Comment: FEMA LE (NON-) & MALE <3 BORDERLINE 3 - 5 SUGGEST REPEAT TESTING FEMALE () 1 D - 1 WK 5 - 50 1 - 2 WK 50 - 500 2 - 3 WK 100 - 5000 3 - 4 WK 500 - 41232 4 - 5 WK 1000 - 96240 5 - 6 WK [address] - 397041 6 - 8 W[place] 36099 - 681318 2 - 3 [place] [address] - 087686 Performed By: #### 2 582751 ####KADEN QodHbzo2687 [place] [address] CBC w/ Auto Diffon 7 Erythrocyte distribution width Auto Ratio (RBC) 13.9 % Normal 11.5-14.5 [facility] Comment on above: Performed By: #### 2 622764 ####KADENMorelia BairdHrkZfdi9624 [place] [address] Erythrocytes (RBC) 4.63 E6/mcL Normal 3.90-5.40 [facility] Comment on above: Performed By: #### 2 214729 ####KADENMorelia LuceroIqoMjya7746 [place] [address] Hematocrit (HCT) 38.2 % Normal 36.0-48.0 [facility] Comment on above: Performed By: #### 2 713627 ####KADEN [address]25 [place] [address] Hemoglobin mass conc (Bld) 12.6 g/dL Normal 12.0-16.0 [facility] Comment on above: Performed By: #### 2 586970 ####KADEN [address] [place] [address] MCH 27.2 pg Normal 27.0-31.0 [facility] Comment on above: Performed By: #### 2 682241 ####KADEN [address] [place] [id number] MCHC mass conc (RBC) 33.0 g/dL Normal 33.0-37.0 [facility] Comment on above: Performed By: #### 2 086956 ####KADEN [address] [place] [address] MCV 82.6 fL Normal 78.0-100.0 [facility] Comment on above: Performed By: #### 2 303745 ####KADEN [address] [place] [address] Platelet mean volume (PMV) 8.0 fL Normal 7.4-11.0 [facility] Comment on above: Performed By: #### 2 725136 ####KADEN [address] [place] [address] Platelets 233 E3/mcL Normal 130-400 [facility] Comment on above: Performed By: #### 2 409758 ####KADEN BairdImpNhqz7442 [place] [address] WBC (Leukocytes) 9.0 E3/mcL Normal 3.6-11.0 [facility] Comment on above: Performed By: #### 2 388116 ####KADEN [address] [place] [address] UA Completeon 04-11-2017 UA Blood Negative Normal Negative [facility] Comment on above: Result Comment: High concentration of Ascorbic Acid present in urine. This may cause False Negative Occ Blood. Review microscopic results and patient's clinical symptoms. Performed By: #### 8 [id number] ####KADEN Urinalysis Automated Lwvdqofqem6682 [place] [address] UA Amorph Chastity 1+ /HPF Abnormal None [facility] Comment on above: Performed By: #### 8 [id number] ####KADEN Urinalysis Automated Bqzpyngbma7210 [place] [address] UA Ascorbic Acid 40 mg/dL High <=19 [facility] Comment on above: Performed By: #### 8 [id number] ####KADEN Urinalysis Automated Jdjzdxokfi1625 [place] [address] UA Bacteria Trace Abnormal None [facility] Comment on above: Performed By: #### 8 [id number] ####KADEN Urinalysis Automated [address] [place] [address] UA Clarity Cloudy Abnormal Clear [facility] Comment on above: Performed By: #### 8 [id number] ####KADEN Urinalysis Automated [address] [place] [address] UA Leuk Est Negative Normal Negative [facility] Comment on above: Performed By: #### 8 [id number] ####KADEN Urinalysis Automated [address] [place] [address] UA Mucous Few Abnormal Trace [facility] Comment on above: Performed By: #### 8 [id number] ####KADEN Urinalysis Automated [address]oilgqelog6059 [place] [address] UA Nitrite Negative Normal Negative [facility] Comment on above: Performed By: #### 8 [id number] ####KADEN Urinalysis Automated [address] [place] [address] UA pH 7.0 Normal 4.6-8.0 [facility] Comment on above: Performed By: #### 8 [id number] ####KADEN Urinalysis Automated Qlpoxxri[address] [place], [place] [id number] UA Protein Negative Normal Negative [facility] Comment on above: Performed By: #### 8 [id number] ####KADEN Urinalysis Automated Izuphbssoe8799 [place] [address] UA Spec Grav 1.025 Normal 1.003-1.03 0 [facility] Comment on above: Performed By: #### 8 [id number] ####KADEN Urinalysis Automated Xyzuuchpvk0260 [place] [address] UA Squam Epithelial 5-10 Abnormal 0-5 [facility] Comment on above: Performed By: #### 8 [id number] ####KADEN Urinalysis Automated Qeojtjadps7404 [place] [address] UA Urobilinogen 2.0 mg/dL Abnormal [facility] Comment on above: Performed By: #### 8 [id number] ####KADEN Urinalysis Automated Iklujlxpbp7401 [place] [address] Urine, color Yellow Normal Yellow [facility] Comment on above: Performed By: #### 8 [id number] ####KADEN Urinalysis Automated Qlgrtxyilc0096 [place] [address] Urine, erythrocytes 0-3 Normal 0-3 [facility] Comment on above: Performed By: #### 8 [id number] ####KADEN Urinalysis Automated Rdekvnlmed2652 [place] [address] Urine, glucose Negative Normal Negative [facility] Comment on above: Performed By: #### 8 [id number] ####KADEN Urinalysis Automated Phkcgysgwm9085 [place] [address] Urine, ketones presence 2+ Abnormal Negative [facility] Comment on above: Performed By: #### 8 [id number] ####KADEN Urinalysis Automated Nmudpgbpok9462 [place] [address] Urine, urobilinogen Negative Normal Negative [facility] Comment on above: Performed By: #### 8 [id number] ####KADEN Urinalysis Automated Rjaldfldkl2916 [place] [address] eGFRon 04-11-2017 eGFR (non-black) mL/min/{1.73_m2} Normal [facility] Comment on above: Order Comment: Order added by Discern Expert. Performed By: #### 1 [id number] ####KADEN MijRjlg8312 [place] [address] eGFR AA >60 Normal [facility] Comment on above: Order Comment: Order added by Discern Expert. Performed By: #### 1 [id number] ####KADEN VedJjio0349 [place] [address] U BhCG Qlton 03-20-2017 HCG.beta subunit Qn Negative Normal Neg [facility] Comment on above: Performed By: #### 2 [id number] ####KADEN Urinalysis Manual Sstaeiwhxy8177 [place] [address] UA Completeon 03-20-2017 UA Blood Negative Normal Negative [facility] Comment on above: Performed By: #### 8 [id number] ####KADEN Urinalysis Automated Osanhrkoqf4151 [place] [address] UA Amorph Chastity 1+ /HPF Abnormal None [facility] Comment on above: Performed By: #### 8 [id number] ####KADEN Urinalysis Automated [address] [place] [address] UA Bacteria 2+ /HPF Abnormal None [facility] Comment on above: Performed By: #### 8 [id number] ####KADEN Urinalysis Automated [address]jvr[address] [place] [address] UA Clarity Cloudy Abnormal Clear [facility] Comment on above: Performed By: #### 8 [id number] ####KADEN Urinalysis Automated Qsqnexrvgc[address] [place] [address] UA Leuk Est 1+ Abnormal Negative [facility] Comment on above: Performed By: #### 8 [id number] ####KADEN Urinalysis Automated Rarpmihbdr0656 [place] [address] UA Mucous Occasional Abnormal Trace [facility] Comment on above: Performed By: #### 8 [id number] ####KADEN Urinalysis Automated Hcmirhrbsz1645 [place] [address] UA Nitrite Negative Normal Negative [facility] Comment on above: Performed By: #### 8 [id number] ####KADEN Urinalysis Automated [address] [place] [address] UA pH 6.0 Normal 4.6-8.0 [facility] Comment on above: Performed By: #### 8 [id number] ####KADEN Urinalysis Automated [address] [place] [address] UA Protein 1+ Abnormal Negative [facility] Comment on above: Performed By: #### 8 [id number] ####KADEN Urinalysis Automated Wgizvhkgul7717 [place] [address] UA Spec Grav 1.019 Normal 1.003-1.03 0 [facility] Comment on above: Performed By: #### 8 [id number] ####KADEN Urinalysis Automated Uwxziwqhzh6126 [place] [address] UA Squam Epithelial 5-10 Abnormal 0-5 [facility] Comment on above: Performed By: #### 8 [id number] ####KADEN Urinalysis Automated Jgkdjkctqg5774 [place] [address] UA Urobilinogen Negative Normal [facility] Comment on above: Performed By: #### 8 [id number] ####KADEN Urinalysis Automated [address] [place] [address] UA WBC >50 Abnormal 0-5 [facility] Comment on above: Performed By: #### 8 [id number] ####KADEN Urinalysis Automated Mxspcqwwhd8710 [place] [address] Urine, color Yellow Normal Yellow [facility] Comment on above: Performed By: #### 8 [id number] ####KADEN Urinalysis Automated [address] [place] [address] Urine, erythrocytes 5-10 Abnormal 0-3 [facility] Comment on above: Performed By: #### 8 [id number] ####KADEN Urinalysis Automated Tqjttsjdfr7657 [place] [address] Urine, glucose Negative Normal Negative [facility] Comment on above: Performed By: #### 8 [id number] ####KADEN Urinalysis Automated Hrbzomaikl1452 [place] [address] Urine, ketones presence Negative Normal Negative [facility] Comment on above: Performed By: #### 8 [id number] ####KADEN Urinalysis Automated Mxmskbqvyp6163 [place] [address] Urine, urobilinogen Negative Normal Negative [facility] Comment on above: Performed By: #### 8 [id number] ####KADEN Urinalysis Automated Pgsbqvcdex0394 [place] [address] Vital Signs Date Time Vital Sign Value Performing Clinician Facility 08-27-2024 14:22-0400 Body mass index (BMI) [Ratio] 27.12 kg/m2 Ashwin Packer MD Work Phone: [facility] 08-27-2024 14:22-0400 Body weight 73.94 kg Ashwin Packer MD Work Phone: [facility] 08-27-2024 14:22-0400 Diastolic blood pressure 64 mm[Hg] Ashwin Packer MD Work Phone: [facility] 08-27-2024 14:22-0400 Systolic blood pressure 104 mm[Hg] Ashwin Packer MD Work Phone: [facility] 08-13-2024 11:48-0500 Body mass index (BMI) [Ratio] 25.95 kg/m2 Elena CHRISTENSEN Work Phone: [facility] 08-13-2024 11:48-0500 Body weight 72.94 kg Elena CHRISTENSEN Work Phone: [facility] 08-13-2024 11:48-0500 Diastolic blood pressure 68 mm[Hg] Elena CHRISTENSEN Work Phone: [facility] 08-13-2024 11:48-0500 Systolic blood pressure 112 mm[Hg] Elena CHRISTENSEN Work Phone: [facility] 07-20-2024 11:13-0500 Body mass index (BMI) [Ratio] 25.73 kg/m2 Cuong Diana DO Work Phone: [facility] 07-20-2024 11:13-0500 Body weight 72.3 kg Cuong Diana DO Work Phone: [facility] 07-20-2024 11:13-0500 Diastolic blood pressure 60 mm[Hg] Cuong Diana DO Work Phone: [facility] 07-20-2024 11:13-0500 Systolic blood pressure 100 mm[Hg] Cuong Diana DO Work Phone: [facility] 06-18-2024 10:37-0500 Body mass index (BMI) [Ratio] 25.02 kg/m2 [facility] 06-18-2024 10:37-0500 Body weight 70.31 kg [facility] 06-18-2024 10:37-0500 Diastolic blood pressure 72 mm[Hg] [facility] 06-18-2024 10:37-0500 Systolic blood pressure 118 mm[Hg] [facility] 07-18-2023 10:30-0500 Body mass index (BMI) [Ratio] 26.7 kg/m2 Cuong Diana DO Work Phone: [facility] 07-18-2023 10:30-0500 Body weight 75.03 kg Cuong Diana DO Work Phone: [facility] 07-18-2023 10:30-0500 Diastolic blood pressure 68 mm[Hg] Cuong Diana DO Work Phone: [facility] 07-18-2023 10:30-0500 Systolic blood pressure 106 mm[Hg] Cuong Diana DO Work Phone: [facility] 02-11-2023 14:13-0400 Body height 165.1 cm SADAF Wyatt Work Phone: [facility] 02-11-2023 14:13-0400 Body temperature 97.9 [degF] SADAF Wyatt Work Phone: [facility] 02-11-2023 14:13-0400 Body weight 70.55 kg SADAF Wyatt Work Phone: [facility] 02-11-2023 14:13-0400 Diastolic blood pressure 80 mm[Hg] SADAF Wyatt Work Phone: [facility] 02-11-2023 14:13-0400 Heart rate 60 /min SADAF Wyatt Work Phone: [facility] 02-11-2023 14:13-0400 Respiratory rate 15 /min SADAF Wyatt Work Phone: [facility] 02-11-2023 14:13-0400 SaO2% (BldA) [Mass fraction] 99 % FERMIN-Ventura Wyatt Work Phone: [facility] 02-11-2023 14:13-0400 Systolic blood pressure 134 mm[Hg] PA-Ventura Wyatt Work Phone: [facility] 02-08-2023 12:36-0400 Body height 165.1 cm PA-Ventura Wyatt Work Phone: [facility] 02-08-2023 12:36-0400 Body temperature 98.2 [degF] SADAF Wyatt Work Phone: [facility] 02-08-2023 12:36-0400 Body weight 72.57 kg SADAF Wyatt Work Phone: [facility] 02-08-2023 12:36-0400 Diastolic blood pressure 84 mm[Hg] PA-Ventura Wyatt Work Phone: [facility] 02-08-2023 12:36-0400 Heart rate 74 /min SADAF Wyatt Work Phone: [facility] 02-08-2023 12:36-0400 Respiratory rate 15 /min SADAF Wyatt Work Phone: [facility] 02-08-2023 12:36-0400 SaO2% (BldA) [Mass fraction] 98 % SADAF Wyatt Work Phone: [facility] 02-08-2023 12:36-0400 Systolic blood pressure 150 mm[Hg] SADAF Wyatt Work Phone: [facility] 12-19-2022 14:43-0400 Body temperature 96.9 [degF] SADAF Wyatt Work Phone: [facility] 12-19-2022 14:43-0400 Diastolic blood pressure 74 mm[Hg] PA-Ventura Wyatt Work Phone: [facility] 12-19-2022 14:43-0400 Heart rate 59 /min PA-C Andie Wyatt Work Phone: [facility] 12-19-2022 14:43-0400 Respiratory rate 18 /min PA-C Andie Wyatt Work Phone: [facility] 12-19-2022 14:43-0400 SaO2% (BldA) [Mass fraction] 100 % PA-C Andie Wyatt Work Phone: [facility] 12-19-2022 14:43-0400 Systolic blood pressure 115 mm[Hg] PA-C Andie Wyatt Work Phone: [facility] 12-19-2022 14:00-0400 Diastolic blood pressure 89 mm[Hg] PA-C Andie Wyatt Work Phone: [facility] 12-19-2022 14:00-0400 Heart rate 79 /min PA-C Andie Wyatt Work Phone: [facility] 12-19-2022 14:00-0400 Respiratory rate 16 /min PA-C Andie Wyatt Work Phone: [facility] 12-19-2022 14:00-0400 SaO2% (BldA) [Mass fraction] 99 % PA-C Andie Wyatt Work Phone: [facility] 12-19-2022 14:00-0400 Systolic blood pressure 150 mm[Hg] PA-C Andie Wyatt Work Phone: [facility] 12-19-2022 03:30-0400 Body height 165.1 cm PA-C Andie Wyatt Work Phone: [facility] 12-19-2022 03:30-0400 Body weight 72.2 kg PA-C Andie Wyatt Work Phone: [facility] 12-18-2022 23:07-0400 Body height 165.1 cm PA-C Andie Wyatt Work Phone: [facility] 12-18-2022 23:07-0400 Body weight 74.2 kg PA-C Andie Wyatt Work Phone: [facility] 12-18-2022 23:05-0400 Body temperature 98.5 [degF] PA-C Andie Wyatt Work Phone: [facility] 08-20-2022 14:31-0500 Body height 165.1 cm PA-C Andie Wyatt Work Phone: [facility] 08-20-2022 14:31-0500 Body temperature 98.9 [degF] PA-C Andie Wyatt Work Phone: [facility] 08-20-2022 14:31-0500 Body weight 71.55 kg PA-C Andie Wyatt Work Phone: [facility] 08-20-2022 14:31-0500 Diastolic blood pressure 87 mm[Hg] PA-Ventura Wyatt Work Phone: [facility] 08-20-2022 14:31-0500 Heart rate 97 /min PA-Ventura Wyatt Work Phone: [facility] 08-20-2022 14:31-0500 Respiratory rate 18 /min FERMIN-C Andie Wyatt Work Phone: [facility] 08-20-2022 14:31-0500 SaO2% (BldA) [Mass fraction] 98 % PA-Ventura Wyatt Work Phone: [facility] 08-20-2022 14:31-0500 Systolic blood pressure 135 mm[Hg] PA-Ventura Wyatt Work Phone: [facility] 02-08-2022 03:06-0400 Body weight 68.[address] CUONG ORTIZ . [facility] Comment on above: Performed By: #### AFPMAT #### [facility] [address] [place] [address] Dr. Juan Antonio Ibarra 02-05-2022 18:24-0400 Body height 165.1 cm PAZhao Wyatt Work Phone: [facility] 02-05-2022 18:24-0400 Body temperature 98.3 [degF] SADAF Wyatt Work Phone: [facility] 02-05-2022 18:24-0400 Body weight 67.9 kg SADAF Wyatt Work Phone: [facility] 02-05-2022 18:24-0400 Diastolic blood pressure 68 mm[Hg] SADAF Wyatt Work Phone: [facility] 02-05-2022 18:24-0400 Heart rate 92 /min SADAF Wyatt Work Phone: [facility] 02-05-2022 18:24-0400 Respiratory rate 18 /min SADAF Wyatt Work Phone: [facility] 02-05-2022 18:24-0400 SaO2% (BldA) [Mass fraction] 99 % SADAF Wyatt Work Phone: [facility] 02-05-2022 18:24-0400 Systolic blood pressure 125 mm[Hg] SADAF Wyatt Work Phone: [facility] Encounters Encounter Date Encounter Type Care Provider Facility Start: 08-27-2024 End: 08-27-2024 Office consultation new/estab patient 60 min Ashwin Packer MD Work Phone: [facility] Comment on above: Suspected anom kaitlynn, antepartum, single or unspecified fetus (Primary Dx); 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 , 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; Family history of genetic disorder; Fetus with trisomy 13, single gestation; CM (congenital malformation) Start: 08-27-2024 End: 08-27-2024 Chart abstracting Scanning Provider External [facility] Start: 08-27-2024 End: 08-27-2024 ambulatory [facility] Start: 08-13-2024 End: 08-13-2024 Office outpatient visit 15 minutes Elena CHRISTENSEN Work Phone: [facility] Comment on above: Second trimester pre gnancy; 20 weeks gestation of Start: 08-13-2024 End: 08-13-2024 ambulatory ELENA FOFANA Not Available Start: 07-20-2024 End: 07-20-2024 Bamboo flowsheet Cuong Diana DO Work Phone: [facility] Start: 07-20-2024 End: 07-22-2024 Bamboo flowsheet Cuong Diana DO Work Phone: [facility] Start: 07-20-2024 End: 07-22-2024 Clinisync Result Encounter Cuong Diana DO Work Phone: [facility] Unsolicited Start: 07-20-2024 End: 07-20-2024 ambulatory CUONG DIANA Not Available Start: 07-20-2024 End: 07-20-2024 Office outpatient visit 15 minutes Cuong Diana DO Work Phone: [facility] Comment on above: 16 weeks gestation o f ; Second trimester ; Screening, , for anatomic survey Start: 06-22-2024 End: 06-22-2024 Clinisync Result Encounter Cuong Diana DO Work Phone: [facility] Unsolicited Start: 06-22-2024 End: 06-22-2024 Clinisync Result Encounter Cuong Diana DO Work Phone: [facility] Unsolicited Start: 06-22-2024 End: 06-22-2024 ambulatory Andie Wyatt PA-C Work Phone: [facility] Work Phone: Start: 06-22-2024 End: 06-22-2024 Departed Referred Andie Wyatt PA-C Work Phone: [facility] Start: 06-18-2024 End: 06-18-2024 ambulatory [facility] Diana Nurse [facility] Comment on above: GA: 12w2d Start: 12-26-2023 End: 12-26-2023 ambulatory AMAURI RODRIGUEZ [facility] Start: 12-24-2023 End: 12-24-2023 ambulatory CUONG DIANA Not Available Start: 11-04-2023 End: 11-04-2023 ambulatory CUONG DIANA Not Available Start: 10-28-2023 End: 10-28-2023 ambulatory CUONG DIANA Not Available Start: 10-14-2023 End: 10-14-2023 ambulatory CUONG DIANA Not Available Start: 09-30-2023 End: 09-30-2023 ambulatory CUONG DIANA Not Available Start: 09-12-2023 End: 09-12-2023 ambulatory CUONG DIANA Not Available Start: 07-22-2023 Documentation procedure Lucio HARPER Work Phone: [facility] Comment on above: Outgoing Ca ll Start: 07-18-2023 Clinisync Result Encounter Cuong Diana DO Work Phone: [facility] Unsolicited Start: 07-18-2023 Clinisync Result Encounter Cuong Diana DO Work Phone: [facility] Unsolicited Start: 07-18-2023 End: 07-18-2023 Office outpatient visit 15 minutes Cuong Diana DO Work Phone: [facility] Comment on above: Second trimester pre gnancy Start: 07-03-2023 End: 07-03-2023 Telemedicine consultation with patient Rosaura HARPER Work Phone: [facility] Comment on above: Family history of ge netic disorder (Primary Dx); Genetic testing; Fetus with trisomy 13, single gestation Start: 07-03-2023 End: 07-03-2023 [facility] Start: 06-25-2023 Chart abstracting Scanning Pro vider External [facility] Start: 02-11-2023 End: 02-11-2023 Emergency department patient visit SADAF Wyatt Work Phone: [facility] Work Phone: Start: 02-08-2023 End: 02-08-2023 Emergency department patient visit FERMINZhao Andie Wyatt Work Phone: [facility] Work Phone: Start: 12-19-2022 End: 12-19-2022 Evaluation and management of inpatient SADAF Andie Wyatt Work Phone: [facility] [place] [facility] Work Phone: Start: 12-19-2022 End: 12-19-2022 observation encounter PA-Ventura Wyatt Work Phone: [facility] Work Phone: Start: 10-24-2022 End: 10-24-[address] CUONG ORTIZ . Facility:[facility] Start: 10-23-2022 Registered Recurring SADAF Wyatt Work Phone: [facility] Start: 08-20-2022 End: 08-20-2022 Emergency department patient visit SADAF Andie Wyatt Work Phone: [facility] Work Phone: Start: 07-23-[address] CUONG ORTIZ . Facili ty:[facility] Start: 07-09-2022 End: 07-09-[address] CUONG ORTIZ . Facility:[facility] Start: 07-05-2022 End: 07-07-2022 Evaluation and management of inpatient DR CUONG ORTIZ . Facility:[facility] Start: 07-02-2022 End: 07-02-2022 ambulatory [facility] Facility:[facility] Start: 06-28-2022 End: 06-28-[address] CUONG ORTIZ . Facility:[facility] Start: 06-21-2022 End: 06-21-2022 [facility] Facility:[facility] Start: 06-16-2022 End: 06-16-[address] CUONG ORTIZ . Facility:[facility] Start: 06-14-2022 End: 06-14-2022 ambulatory ELENA FOFANA . Facility:[facility] Start: 06-14-2022 End: 06-14-[address] CUONG ORTIZ . Facility:[facility] Start: 06-07-2022 End: 06-07-[address] CUONG ORTIZ . Facility:[facility] Start: 06-04-2022 End: 06-04-[address] CUONG ORTIZ . Facility:[facility] Start: 06-02-2022 End: 06-02-[address] CUONG ORTIZ . Facility:[facility] Start: 05-31-2022 End: 05-31-[address] CUONG ORTIZ . Facility:[facility] Start: 05-24-2022 End: 05-24-2022 ambulatory [facility] Facility:[facility] Start: 04-04-2022 End: 04-05-2022 ambulatory [...] department patient visit SADAF Wyatt Work Phone: [facility]Emer[facility] Start: 12-26-2021 End: 12-27-[address] CUONG ORTIZ . Facility:[facility] Start: 12-07-2021 End: 12-08-[address] CUONG ORTIZ . Facility:[facility] Start: 12-27-2017 End: 12-27-2017 Patient encounter Christian Ivan Facility:[facility] Start: 12-12-2017 End: 12-12-2017 Emergency department patient visit Luke Barbosa Facility:[facility] Start: 12-12-2017 Patient encounter Facil [id number] Start: 12-07-2017 Evaluation and manag ement of inpatient CLARA JAMA Facility:[facility] Start: 12-03-2017 Evaluation and manag ement of inpatient CLARA JAMA Facility:[facility] Start: 12-03-2017 Patient encounter procedure CLARA JAMA Facility:[facility] Start: 12-02-2017 Evaluation and manag ement of inpatient CLARA JAMA Facility:[facility] Start: 11-30-2017 End: 12-02-2017 Evaluation and management of inpatient CLARA JAMA [facility] Start: 11-30-2017 End: 11-30-2017 Patient encounter Eloisa Nguyen Facility:[facility] Start: 11-30-2017 Patient encounter Facil [id number] Start: 11-28-2017 End: 11-28-2017 Patient encounter CLARA JAMA [facility] Start: 11-21-2017 End: 11-21-2017 Patient encounter OKSANASTAN AMADO [facility] Start: 11-21-2017 End: 11-21-2017 Patient encounter Juanita Cole Facility:[facility] Start: 11-20-2017 Patient encounter Facil [id number] Start: 11-17-2017 End: 11-17-2017 Patient encounter Christian Ivan Facility:[facility] Start: 11-16-2017 Patient encounter Facil [id number] Start: 11-07-2017 End: 11-07-2017 Patient encounter OKSANASTAN AMADO [facility] Start: 10-31-2017 End: 10-31-2017 Patient encounter CLARA JAMA [facility] Start: 10-24-2017 End: 10-24-2017 Patient encounter MARCO ANTONIO ANTONIO [facility] Start: 10-16-2017 End: 10-16-2017 Patient encounter Christian Ivan Facility:[facility] Start: 10-08-2017 End: 10-08-2017 Patient encounter ALIREZA PATEL [facility] [facility] Start: 10-08-2017 End: 10-08-2017 Patient encounter OKSANA AMADO [facility] Start: 10-01-2017 End: 10-02-2017 Patient encounter Christian Ivan [facility] Start: 09-10-2017 End: 09-11-2017 Patient encounter LUIS DANIEL TRAMMELL [facility] Start: 09-10-2017 End: 09-10-2017 Patient encounter KRIS HOYT [facility] Start: 09-10-2017 End: 09-10-2017 Patient encounter LCARA JAMA [facility] Start: 09-03-2017 End: 09-04-2017 Patient encounter Christian A Shekhar Facility[facility] Start: 08-28-2017 Ambulatory NAGAEDGAR ACOSTA [facility] Start: 08-13-2017 End: 08-14-2017 Patient encounter CLARA JAMA [facility] Start: 08-13-2017 End: 08-13-2017 Patient encounter MEREDITH BENITO [facility] Start: 08-13-2017 End: 08-13-2017 Patient encounter ALIREZA PATEL [facility] Start: 08-10-2017 End: 08-10-2017 Emergency department patient visit Luke Barbosa Facility:[facility] Start: 08-06-2017 End: 08-07-2017 Patient encounter Christian A Barrington Facility:[facility] Start: 07-23-2017 End: 07-24-2017 Patient encounter Christian A [place] Facility[facility] Start: 07-18-2017 End: 07-18-2017 Patient encounter CLARA JAMA [facility] Start: 07-09-2017 End: 07-10-2017 Patient encounter Christian A Shekhar Facility:[facility] Start: 06-25-2017 End: 06-26-2017 Patient encounter Christian A Shekhar [facility] Start: 06-12-2017 End: 06-12-2017 Patient encounter Christian A [place] Facility[facility] Start: 05-14-2017 End: 05-15-2017 Patient encounter Christian A Shekhar Facility[facility] Start: 05-01-2017 End: 05-02-2017 Patient encounter Eloisa Nguyen Facility[facility] Start: 04-23-2017 End: 04-23-2017 Patient encounter Yasmin Evans Facility:[facility] Start: 04-22-2017 End: 04-22-2017 Emergency department patient visit Luke Barbosa Facility:[facility] Start: 04-18-2017 End: 04-18-2017 Emergency department patient visit Luke Barbosa Facility:[facility] Start: 04-16-2017 End: 04-17-2017 Patient encounter Gamaliel Savage Facility:[facility] Start: 04-16-2017 End: 04-17-2017 Patient encounter Christian Ivan Facility[facility] Start: 04-11-2017 End: 04-11-2017 Emergency department patient visit Nodr No Doctor Assigned Facility:[facility] Start: 03-26-2017 End: 03-27-2017 Patient encounter Luke Barbosa Facility:[facility] Start: 03-20-2017 End: 03-20-2017 Emergency department patient visit Nodr No Doctor Assigned Facility:[facility] Start: 03-01-2017 End: 03-01-2017 Emergency department patient visit Nodr No Doctor Assigned Facility:[facility] Procedures Date Procedure Procedure Detail Performing Clinician Start: 07-20-2024 AFP, SERUM, OPEN SPI NA BIFIDA Cuong Diana DO Work Phone: Start: 07-20-2024 Urnls dip stick/tabl et rgnt non-auto w/o micrscp Cuong Diana DO Work Phone: Start: 06-22-2024 ALL CBC WITH AUTO DIFF Cuong Diana DO Work Phone: Start: 06-18-2024 End: 06-18-2024 Urnls dip stick/tablet rgnt non-auto w/o micrscp Cuong Diana DO Work Phone: Start: 07-18-2023 AFP, SERUM, OPEN SPI NA BIFIDA Cuong Diana DO Work Phone: Start: 07-18-2023 Urnls dip stick/tabl et rgnt non-auto w/o micrscp Cuong Diana DO Work Phone: Start: 05-30-2023 FREE CELL DNA (NON-[facility]) Not In System Ref Prov Start: 12-19-2022 Urine culture SADAF Wyatt Work Phone: Start: 12-19-2022 CT of head without contrast SADAF Andie Wyatt Work Phone: Start: 12-19-2022 X-ray of left foot SADAF Wyatt Work Phone: Start: 12-18-2022 Computed tomography of thoracic spine without contrast SADAF Andie Wyatt Work Phone: Start: 12-18-2022 CT cervical spine wi thout contrast TARIQVentura Sandoval Wyatt Work Phone: Start: 12-18-2022 CT of head without contrast SADAF Wyatt Work Phone: Start: 12-18-2022 CT of lumbar spine w ithout contrast SADAF Wyatt Work Phone: Start: 12-18-2022 Plain chest X-ray FERMINArpitaVentura Sandoval Wyatt Work Phone: Start: 12-18-2022 X-ray of [...] Start: 05-02-2022 Adult depression scr eening assessment Scanning External Start: 11-30-2017 Antibody screen SHAINA JAMA Comment on above: Performed By: #### T &S #### [place] [phone] Aerobic microbial culture FERMIN Wyatt Work Phone: Investigation of transfusion reaction SADAF Wyatt Work Phone: Plan of Treatment Date Care Activity Detail Author Start: 12-18-2032 DTaP,Tdap and Td Vaccines (10 - Td or Tdap) DTaP,Tdap and Td Vaccines (10 - Td or Tdap) [facility] Start: 10-25-2027 Screening for malign ant neoplasm of cervix [facility] Start: 10-24-2025 Screening for malign ant neoplasm of cervix Pap Smear [facility] Start: 08-27-2025 Adult BMI Screening Adult BMI Screen ing [facility] Start: 08-27-2025 Tobacco Screening Tobacco Screening [facility] Start: 09-24-2024 End: 09-24-2024 Patient encounter procedure 09/24/2024 9:45 AM EDT Appointment [facility] [place] [address] [facility] [address] [place] [phone] [facility] [place] Start: 09-10-2024 End: 09-10-2024 Patient encounter procedure 09/10/2024 11:10 AM EDT Routine [facility] [address] [place] [phone] Cuong Ortiz, DO [address] [place] [address] [facility] Start: 08-27-2024 End: 08-27-2025 US MFM with or without consult US MFM with or without consult Imaging Routine 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 , 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 Family history of genetic disorder Fetus with trisomy 13, single gestation CM (congenital malformation) Suspected anomaly, antepartum, single or unspecified fetus Expected: 08/27/2024, Expires: 08/27/2025 [facility] Work Phone: Comment on above: Expected: 08/27/2024 , Expires: 08/27/2025 Start: 08-27-2024 End: 08-27-2024 Patient encounter procedure 08/27/2024 1:00 PM EDT Appointment [facility] [place] [address] [facility] [address] [place] [phone] [facility] [place] Start: 08-13-2024 End: 08-13-2024 Patient encounter procedure 08/13/2024 11:30 AM EST Routine [facility] [address] [place] [id number] Elena Fofana PA [address] [place], [place] [id number] [facility] Start: 08-13-2024 End: 08-13-2024 Professional / ancillary services management 08/13/2024 10:30 AM EST Ancillary Procedure [facility] [address] [phone] [facility] Start: 07-20-2024 End: 08-17-2024 Alpha fetoprotein, maternal Alpha fetoprotein, maternal Lab Routine 16 weeks gestation of Second trimester Expected: 07/20/2024 (Approximate), Expires: 08/17/2024 [facility] Comment on above: Expected: 07/20/2024 (Approximate), Expires: 08/17/2024 Start: 07-20-2024 End: 07-20-2025 US for US OB 14+ weeks anatomy scan Imaging Routine Screening, , for anatomic survey Expected: 07/20/2024, Expires: 07/20/2025 [facility] Work Phone: Comment on above: Expected: 07/20/2024 , Expires: 07/20/2025 Start: 07-20-2024 End: 07-20-2024 Patient encounter procedure 07/20/2024 10:40 AM EST Routine [facility] [address] [phone] Cuong Ortiz DO [address] [place] [address] [facility] Start: 06-22-2024 Bacteria identified in Urine by Culture Urine Culture [facility] Start: 06-22-2024 Urine culture [facility] Start: 06-18-2024 End: 06-18-2025 ABO/Rh ABO/Rh Lab Routine Missed menses , unspecified gestational age Expected: 06/18/2024 (Approximate), Expires: 06/18/2025 [facility] Comment on above: Expected: 06/18/2024 (Approximate), Expires: 06/18/2025 Start: 06-18-2024 End: 06-18-2025 Blood type and Indirect antibody screen panel - Blood Type and screen Lab Routine Missed menses , unspecified gestational age Expected: 06/18/2024 (Approximate), Expires: 06/18/2025 [facility] Work Phone: Comment on above: Expected: 06/18/2024 (Approximate), Expires: 06/18/2025 Start: 06-18-2024 End: 06-18-2025 Drugs of abuse panel - Urine by Screen method Rapid drug screen, urine Lab Routine , unspecified gestational age Encounter for supervision of normal first in first trimester Expected: 06/18/2024 (Approximate), Expires: 06/18/2025 [facility] Comment on above: Expected: 06/18/2024 (Approximate), Expires: 06/18/2025 Start: 02-16-2024 COVID-19 Vaccine ( season) COVID-19 Vaccine () [facility] Start: 02-16-2024 Influenza vaccination [facility] Start: 09-11-2023 Adult BMI Screening Adult BMI Screen ing [facility] Start: 09-11-2023 Tobacco Screening Tobacco Screening [facility] Start: 08-15-2023 End: 08-15-2023 Patient encounter procedure 08/15/2023 2:15 PM EST Appointment [facility] [place] [address] [facility] [address] [place] [address] [facility] [place] Start: 08-15-2023 End: 08-15-2023 Patient encounter procedure 08/15/2023 9:10 AM EST Routine [facility] [address] [phone] Cuong Ortiz, [address] [place] [address] [facility] Start: 07-18-2023 End: 02-01-2024 Patient encounter procedure 07/18/2023 8:00 AM EST Appointment [facility] [place] [address] [place] [address] [facility] [place] Start: 07-03-2023 End: 07-03-2023 Telemedicine consultation with patient 07/03/2023 11:00 AM EST Telemedicine M[facility]- Medicine at [facility] [address] [place] [phone] Rosaura Renee, [facility] [address] [place] [address] [facility] at [facility] Start: 05-02-2023 Depression Screening Depression Scre [facility] Start: 02-15-2023 COVID-19 Vaccine () COVID-19 Vaccine () [facility] Start: 02-15-2023 Influenza vaccination N [facility] Start: 12-19-2022 Bacteria identified in Urine by Culture Urine Culture [facility] Start: 12-19-2022 [facility] Start: 12-19-2022 CT of head without contrast CT head/brain wo [facility] Start: 12-19-2022 CT Unspecified body region WO contrast [facility] Start: 12-19-2022 Consultation [facility] Start: 12-19-2022 Hospital admission [facility] Start: 12-19-2022 X-ray of left foot XR foot LT 2V [facility] Start: 12-19-2022 XR Foot - left 2 Views [facility] Start: 12-18-2022 Computed tomography of thoracic spine without contrast CT thoracic spine wo [facility] Start: 12-18-2022 CT cervical spine without contrast CT cervical spine wo [facility] Start: 12-18-2022 CT Cervical spine WO contrast [facility] Start: 12-18-2022 CT Lumbar spine WO contrast [facility] Start: 12-18-2022 CT of head without contrast CT head/brain wo [facility] Start: 12-18-2022 CT of lumbar spine without contrast CT lumbar spine wo con [facility] Start: 12-18-2022 CT Thoracic spine WO contrast [facility] Start: 12-18-2022 CT Unspecified body region WO contrast [facility] Start: 12-18-2022 Pelvis X-ray XR pelvis 1-[facility] Start: 12-18-2022 Plain chest X-ray XR chest 1V portab le [facility] Start: 12-18-2022 X-ray of both knees XR knee BI 2V [facility] Start: 12-18-2022 XR Chest Single view [facility] Start: 12-18-2022 XR Knee - bilateral 2 Views [facility] Start: 12-18-2022 XR Pelvis 1 or 2 Views [facility] Start: 2022 Screening for malign ant neoplasm of cervix [facility] Start: 02-05-2022 [facility] Work Phone: Start: 2013 Screening for malign ant neoplasm of cervix Pap Smear [facility] Start: 2011 DTaP,Tdap and Td Vaccines (1 - Tdap) DTaP,Tdap and Td Vaccines (1 - Tdap) [facility] Start: 2010 Adult BMI Follow Up Plan Adult BMI Follow Up Plan [facility] Anaerobic microbial culture Anaerobic Culture [facility] Bacteria identified in Urine by Culture [facility] Bacteria identified in Urine by Culture Urine culture Microbiology Routine Missed menses Ordered: 06/18/2024 [facility] Comment on above: Ordered: 06/18/2024 CBC W Auto Different ial panel - Blood CBC and differential Lab Routine Missed menses , unspecified gestational age Ordered: 06/18/2024 [facility] Comment on above: Ordered: 06/18/2024 Hemoglobin A1c/Hemoglobin.total in Blood Hemoglobin A1c Lab Routine Missed menses , unspecified gestational age Ordered: 06/18/2024 [facility] Comment on above: Ordered: 06/18/2024 Hepatitis B virus surface Ag [Presence] in Serum or Plasma by Immunoassay Hepatitis B surface antigen Lab Routine Missed menses , unspecified gestational age Ordered: 06/18/2024 [facility] Comment on above: Ordered: 06/18/2024 Hepatitis C virus Ab [Presence] in Serum or Plasma by Immunoassay Hepatitis C antibody Lab Routine Missed menses , unspecified gestational age Ordered: 06/18/2024 [facility] Comment on above: Ordered: 06/18/2024 HIV-1/HIV-2 antigen/antibody combination immunoassay HIV-1 and HIV-2 antibodies Lab Routine Missed menses , unspecified gestational age Ordered: 06/18/2024 [facility] Comment on above: Ordered: 06/18/2024 Patient Education [facility] Work Phone: Patient referral [facility] Work Phone: Reagin Ab [Presence] in Serum by RPR RPR Lab Routine Missed menses , unspecified gestational age Ordered: 06/18/2024 [facility] Comment on above: Ordered: 06/18/2024 Rubella antibody, IgG Rubella an tibody, IgG Lab Routine Missed menses , unspecified gestational age Ordered: 06/18/2024 [facility] Comment on above: Ordered: 06/18/2024 Immunizations Immunization Date Immunization Notes Care Provider Fa uli 12-18-2022 tetanus toxoid, redu swati diphtheria toxoid, and acellular pertussis vaccine, adsorbed SADAF Wyatt Work Phone: [facility] 07-07-2022 diphtheria, tetanus toxoids and pertussis vaccine Ashwin Packer MD Work Phone: [facility] 11-07-2017 tetanus toxoid, redu swati diphtheria toxoid, and acellular pertussis vaccine, adsorbed Ashwin Packer MD Work Phone: [facility] 10-24-2017 tetanus toxoid, redu swati diphtheria toxoid, and acellular pertussis vaccine, adsorbed Ashwin Packer MD Work Phone: [facility] 05-19-2013 influenza, injectabl e, quadrivalent, preservative free Ashwin Packer MD Work Phone: [facility] 05-19-2013 influenza virus vacc ine, unspecified formulation Rosaura Renee [facility] Work Phone: [facility] 04-29-2012 influenza virus vacc ine, whole virus Ashwin Packer MD Work Phone: [facility] 10-18-2010 human papilloma viru s vaccine, quadrivalent Ashwin Packer MD Work Phone: [facility] 07-26-2010 human papilloma viru s vaccine, quadrivalent Ashwin Packer MD Work Phone: [facility] 12-24-2008 human papilloma viru s vaccine, quadrivalent Ashwin Packer MD Work Phone: [facility] 12-24-2008 meningococcal polysaccharide (groups A, C, Y and W-135) diphtheria toxoid conjugate vaccine (MCV4P) Ashwin Packer MD Work Phone: [facility] 12-09-1997 haemophilus influenz ae type b vaccine, PRP-T conjugate Ashwin Packer MD Work Phone: [facility] 12-09-1997 hepatitis B vaccine, pediatric or pediatric/adolescent dosage Ashwin Packer MD Work Phone: [facility] 10-08-1997 diphtheria, tetanus toxoids and acellular pertussis vaccine, unspecified formulation Ashwin Packer MD Work Phone: [facility] 10-08-1997 haemophilus influenz ae type b vaccine, PRP-T conjugate Ashwin Packer MD Work Phone: [facility] 10-08-1997 hepatitis B vaccine, pediatric or pediatric/adolescent dosage Ashwin Packer MD Work Phone: [facility] 10-08-1997 measles, mumps and rubella virus vaccine Ashwin Packer MD Work Phone: [facility] 10-08-1997 trivalent poliovirus vaccine, live, oral Ashwin Packer MD Work Phone: [facility] 09-18-1997 DTaP-Haemophilus influenzae type b conjugate vaccine Ashwin Packer MD Work Phone: [facility] 09-18-1997 poliovirus vaccine, unspecified formulation Ashwin Packer MD Work Phone: [facility] 03-10-1997 haemophilus influenz ae type b vaccine, PRP-T conjugate Ashwin Packer MD Work Phone: [facility] 03-10-1997 hepatitis B vaccine, pediatric or pediatric/adolescent dosage Ashwin Packer MD Work Phone: [facility] 08-23-1993 DTaP-Haemophilus influenzae type b conjugate vaccine Ashwin Packer MD Work Phone: [facility] 08-23-1993 measles, mumps and rubella virus vaccine Ashwin Packer MD Work Phone: [facility] 08-23-1993 trivalent poliovirus vaccine, live, oral Ashwin Packer MD Work Phone: [facility] 01-16-1993 haemophilus influenz ae type b vaccine, conjugate unspecified formulation Ashwin Packer MD Work Phone: [facility] 1992 DTaP-Haemophilus influenzae type b conjugate vaccine Ashwin Packer MD Work Phone: [facility] 1992 DTaP-Haemophilus influenzae type b conjugate vaccine Ashwin Packer MD Work Phone: [facility] 1992 poliovirus vaccine, unspecified formulation Ashwin Packer MD Work Phone: [facility] 1992 diphtheria, tetanus toxoids and pertussis vaccine Ashwin Packer MD Work Phone: [facility] 1992 haemophilus influenz ae type b vaccine, conjugate unspecified formulation Ashwin Packer MD Work Phone: [facility] 1992 trivalent poliovirus vaccine, live, oral Ashwin Packer MD Work Phone: [facility] 1992 DTaP-Haemophilus influenzae type b conjugate vaccine Ashwin Packer MD Work Phone: [facility] 1992 trivalent poliovirus vaccine, live, oral Ashwin Packer MD Work Phone: [facility] Payers Date Payer Category Payer Self-pay 2017 Medicaid 2017 Unknown 1992 Unknown [id number] [id number]8 1992 Unknown [id number] 2.16.840.1.729538.3.579.2.278 1992 Unknown [id number] 2.16.840.1.668427.3.579.2.278 1992 Unknown [id number] 2.16.840.1.150281.3.579.2.278 1992 Unknown [id number] 2.16.840.1.703024.3.579.2.593 1992 Unknown [id number] 2.16.840.1.341405.3.579.2.593 1992 Unknown [id number] 2.16.840.1.630364.3.579.2.593 1992 Unknown [id number] 2.16.840.1.641613.3.579.2.593 1992 Unknown [id number] 2.16.840.1.056897.3.579.2.593 1992 Unknown [id number] 2.16.840.1.092538.3.579.2.593 1992 Unknown [id number] 2.16.840.1.240190.3.579.2.593 1992 Unknown [id number] 2.16.840.1.052058.3.579.2.593 1992 Unknown [id number] 2.16.840.1.366380.3.579.2.593 1992 Unknown [id number] 2.16.840.1.082040.3.579.2.593 1992 Unknown [id number] 2.16.840.1.455978.3.579.2.593 1992 Unknown [id number] 2.16.840.1.996356.3.579.2.593 1992 Unknown [id number] 2.16.840.1.216081.3.579.2.593 1992 Unknown [id number] 2.16.840.1.898269.3.579.2.593 1992 Unknown [id number] 2.16.840.1.438609.3.579.2.593 1992 Unknown [id number] 2.16.840.1.488954.3.579.2.593 1992 Unknown [id number] 2.16.840.1.319407.3.579.2.593 1992 Unknown [id number] 2.16.840.1.190301.3.579.2.593 1992 Unknown [id number] 2.16.840.1.375272.3.579.2.593 1992 Unknown [id number] 2.16.840.1.022128.3.579.2.593 1992 Unknown [id number] 2.16.840.1.963245.3.579.2.593 1992 Unknown [id number] 2.16.840.1.226752.3.579.2.593 1992 Unknown [id number] 2.16.840.1.095210.3.579.2.1286 1992 Unknown [id number] 2.16.840.1.020377.3.579.2.1286 1992 Unknown [id number] 2.16.840.1.854770.3.579.2.1259 1992 Unknown [id number] 2.16.840.1.514758.3.579.2.1259 1992 Unknown [id number] 2.16.840.1.119329.3.579.2.1259 1992 Unknown [id number] 2.16.840.1.635733.3.579.2.9 1992 Unknown [id number] 2.16.840.1.703023.3.579.2.9 1992 Unknown [id number] 2.16.840.1.019943.3.579.2.1258 1992 Unknown [id number] 2.16.840.1.241547.3.579.2.9 1992 Unknown [id number] 2.16.840.1.931871.3.579.2.1258 1992 Unknown [id number] 2.16.840.1.514412.3.579.2.9 1992 Unknown [id number] 2.16840.1.836441.3.579.2.1258 1992 Unknown [id number] 2.16.840.1.504684.3.579.2.9 1992 Unknown [id number] 2.16.840.1.782107.3.579.2.1285 1992 Unknown [id number] 2.16.840.1.858488.3.579.2.1286 1957 Medicaid [id number] 1957 Medicaid [id number] Medicaid [id number] Unknown Regular Auto/Liability [id number] Unknown [id number] 2.16.840.1.984801.3.579.2.531 Social History Date Type Detail Facility Start: 02-05-2022 End: 08-27-2024 Tobacco smoking status CAIS Never smoked tobacco (finding) [facility] Start: 1990 Sex Assigned At Female F [facility] Start: 12-19-2022 End: 12-19-2022 Tobacco smoking status NHIS Current some day smoker [facility] Start: 03-28-2022 End: 02-11-2023 Tobacco smoking status NHIS Ex-smoker (finding) [facility] Start: 07-18-2023 End: 08-13-2024 Alcohol intake Lifetime non-drinker (finding) [facility] Start: 07-28-2020 End: 05-09-2023 History of Social function [facility] Start: 07-28-2020 End: 05-09-2023 Tobacco use panel [facility] Start: 03-11-2023 [facility] Start: 1990 Sex Assigned At Not on file P [facility] Start: 01-20-2015 End: 06-24-2024 Sex Female (finding) [facility] History of tobacco use Current smoker [facility] History of tobacco use Tobacco U se Types Packs/Day Years Used Date Smoking Tobacco: Former Vaping/E-cigarettes Smokeless Tobacco: Never [facility] Start: 03-28-2022 End: 08-27-2024 Tobacco use and exposure Smokeless tobacco non-user [facility] Start: 06-26-2023 End: 08-27-2024 Alcohol intake Current non-drinker of alcohol (finding) [facility] Frequency of Alcohol Consumption Never [facility] Goals Date Patient Goal Desired Activity /State Personal health goal Functional Status Date Assessment Result Facility 12-19-2022 Functional status Patient at Baseline [facility] Work Phone: Mental Status Date Assessment Result Facility 12-19-2022 Cognitive function Cognitive Sta tus Patient at Baseline [facility] Work Phone: Clinical Notes 11-13-2021 to 08-27-2024 Annamaria Francois RN - 08/27/2024 2:30 PM Nya Packer MD - 08/27/2024 2:30 PM FERMIN [place] - 08/13/2024 11:30 AM Audrey Ortiz DO - 07/20/2024 10:40 AM EST Note Date & Type Note Facility 08-27-2024 History of Present illness Narrative Headache/epigastric pain/blurry vision/swelling? denies Cramping/contractions? denies Abnormal vaginal discharge? denies Spotting/vaginal bleeding? denies Loss or gush of fluid like your water may have broken? denies Do you have cats at home? no Do you change the litter box (reason: risk of toxoplasmosis)? Genetic testing done this here or other office? [place] low risk/female Have you been seen here at [facility] in a previous ? yes Recent ER visits or hospitalizations? no Bring blood sugar log or meter with you today? (Please bring them with you for every visit at [facility]) Flu vaccine (Apr-August)? no Any concerns that you would like me to mention to the provider today? Just worried about her baby Video Visit via Real-time Synchronous Audiovisual Provider Location: [facility] AT [address] [id number] Patient Location: [place] Patient Location Cnc Operator: None Video Visit Consent Statement: I [...] that there are some limitations compared to xour-zw-qxzo evaluations. We elected to proceed. REASON FOR CONSULTATION: christiano cisterna magna HISTORY OF PRESENT ILLNESS: Zuleika Wyatt is a pleasant 34 y.o. at 22w2d due on Estimated Date of Delivery: 12/29/24. 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 Patient has a family history of this finding in 2 of her 3 living children. She and 2 over daughter's were diagnosed with FLNA deficiency, gillespie matter heterotopia, in two daughters (2017, 2022) with fluid at the back of the brain , an autosomal dominant condition with a 50% chance of inheritance rate. 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 Status post genetic counseling on 07/03/2023 with [place] genetic counselor, Rosaura Renee History of prior child with trisomy 13 Feta alcohol syndrome Short interval Today, the patient is doing well. She denies headaches, vision changes, nausea, vomiting, right upper quadrant or epigastric pain, SOB or chest pain. She denies contractions, vaginal bleeding, leaking of fluid. She reports good movement. Aneuploidy screening: low risk cell free DNA Carrier screening: Baby Girl: Chante I have reviewed the pertinent available patient records including but not limited to notes, labs and images. PAST OBSTETRICAL HISTORY: OB History Para Term AB Living 7 4 4 2 3 SAB IAB Ectopic Multiple Live Births 2 4 # Outcome Date GA Lbr Nam/2nd Weight Sex Type Anes PTL Lv 7 Current 6 Term 11/07/23 3.118 kg F Vag-Spont EDITH 5 Term 07/05/22 39w0d F Vag-Spont EDITH 4 SAB 02/2018 SAB 3 Term 11/30/17 40w0d 3.317 kg F Vag-Spont EPI EDITH 2 Term 08/2016 39w5d M ND 1 2014 MEDICAL HISTORY: Past Medical History: Diagnosis Date ADHD Anxiety Bipolar disorder (CMS-HCC) Club foot Depression alcohol syndrome PTSD (post-traumatic stress disorder) SURGICAL HISTORY: Past Surgical History: Procedure Laterality Date BREAST SURGERY CARDIAC SURGERY FOOT SURGERY TOENAIL EXCISION Bilateral FAMILY/GENETIC HISTORY: History reviewed. No pertinent family history. SOCIAL HISTORY: Social History Tobacco Use Smoking status: Never Smokeless tobacco: Never Vaping Use Vaping status: Former Substance Use Topics Alcohol use: No Drug use: No ALLERGIES: Allergies Allergen Reactions Bee Venom Protein (Honey Bee) Mold Other Reaction(s): Unknown Penicillins Hives Other Reaction(s): Unknown Other Reaction(s): Anaphylaxis Other Reaction(s): Unknown Sulfa (Sulfonamide Antibiotics) Other Reaction(s): Unknown Other Reaction(s): Rash Other Reaction(s): Unknown CURRENT MEDICATIONS: Current Outpatient Medications: fluconazole (DIFLUCAN) 10 mg/mL suspension, , Disp: , Rfl: ondansetron ODT (ZOFRAN ODT) 4 mg disintegrating tablet, Dissolve 1 tablet (4 mg total) on tongue every 8 (eight) hours as needed for nausea or vomiting., Disp: , Rfl: 25/iron fum/folic/dha (-1 ORAL), Take 1 capsule by mouth once daily., Disp: , Rfl: RECENT HOSPITALIZATION: none HABITS: Patient activity no restrictions, diet no restrictions REVIEW OF SYSTEMS: Head and Neck: Negative for any dizziness and headaches. Cardiovascular and Respiratory System: Denies any chest pain, shortness of breath, and coughing. Abdominal and System: Denies any abdominal pain, nausea, vomiting, vaginal bleeding, and vaginal discharge REVIEW OF TESTS AND ULTRASOUND REPORTS: Referral records and [facility] chart were reviewed Pertinent Ultrasound findings are see formal ultrasound report. PHYSICAL EXAMINATION: BP 104/64 Wt 73.9 kg (163 lb) LMP 03/24/2024 BMI 27.12 kg/m Well-appearing in no distress. Respirations not labored, speaking comfortably in full sentences Gravid abdomen OVERALL ASSESSMENT -Zuleika Wyatt is a pleasant 34 y.o. at 22w2d -christiano cisterna magna -family history of prior children with christiano cisterna magna in periventricular heterotopia -familial FLNA mutation COUNSELING I reviewed the limitations of ultrasound in the detection of anomalies. Using a diagram, I described intracranial structures which appeared normal. The cisterna magna was 10.1 mm (10 mm is the upper limit). There is no evidence of mass effect on the cerebellar hemispheres or hydrocephalus. The cerebellum and vermis appear normal and there is no cystic structure in the posterior fossa. The spine appears normal without evidence of NTD. Differential diagnosis includes FLNA mutation, dandy walker variant, christiano cisterna magna, normal variant, or tumor. We reviewed given her family history of prior children with a christiano cisterna magna and genetic testing consistent with FLNA mutation, it was quite likely that the etiology of christiano cisterna magna in this daughter is also FLNA mutation. Patient was undergone genetic counseling in the past both with [facility] and [place] genetic counselor , Rosaura Renee. Per Per Tommy Renee's last note on FLNA: FLNA Deficiency is an X-linked dominant condition [...] ultrasound is relatively insensitive at detecting it. SUMMARY/RECOMMENDATION: Status post low risk cell free DNA Incomplete level 2 anatomy ultrasound, attempt completion in 4 weeks neuro sonogram through [facility] to be scheduled Continue routine care with primary OB Follows with Neurology, appreciate input DISPOSITION: At this point the patient is in complete care of her telecine operator. Patient does have ultrasound and office visit scheduled with us. Thank you for allowing me to participate in the care of Zuleika Wyatt. If there any questions please do not hesitate to contact us. Ashwin Packer MD Maternal- Medicine [facility] [address] [facility] [address]st [place] [address] [facility], the CDC, and other organizations representing maternal and public health professionals recommend that , , and lactating people and those considering receive the COVID-19 vaccination. Vaccination is the best method to reduce maternal and complications of SARS-CoV-2 infection. This document was created with [employer] technology. Though I make every effort to review the dictation as it is transcribed, on occasion the spoken word can be misinterpreted by the technology leading to inappropriate words, phrases, or sentences. This note is addressed to the requesting provider as a consultation for clinical guidance. Specific medical abbreviations are occasionally used and those are generally approved by the [place]?Board of?Obstetrics and?Gynecology?as well as?Fernie lee abbreviations. The above plan of care was based solely on the diagnoses for which a consultation was requested. ?More frequent testing may be indicated based on her other medical/obstetrical conditions. The management of other or medical conditions is beyond the scope of requested consultation and will continue to be followed by the primary telecine operator or primary care provider. Note to patient: The Century Cures Act makes medical notes like these available to patients in the interest of transparency. However, be advised this is a medical document. It is intended as peer to peer communication. It is written in medical language and may contain abbreviations or verbiage that are unfamiliar. It may appear blunt or direct. Medical documents are intended to carry relevant information, facts as evident, and the clinical opinion of the practitioner. documented in this encounter [employer] 08-13-2024 History of Present illness Narrative Reason for Appointment: Patient ID: Zuleika Wyatt is a 34 y.o. female who presents for Routine Visit Patient presents today for Return OB appointment. MEDICATIONS Current Outpatient Medications Medication Instructions Vit-Fe Fumarate-FA (PNV Plus Multivitamin) 27-1 MG tablet 1 tablet, Oral, Daily ALLERGIES Allergies Allergen Reactions Bee Pollen Other Reaction(s): Unknown Bee Venom Molds & Smuts Other Reaction(s): Unknown Penicillin G Other Reaction(s): Unknown Penicillins Hives Other Reaction(s): Unknown Other Reaction(s): Anaphylaxis Sulfa Antibiotics Other Reaction(s): Unknown Other Reaction(s): Rash Sulfamethoxazole Other Reaction(s): Unknown PROBLEMS Active Ambulatory Problems Diagnosis Date Noted Family history of trisomy 13 09/30/2023 Resolved Ambulatory Problems Diagnosis Date Noted No Resolved Ambulatory Problems Past Medical History: Diagnosis Date Abscess ADD (attention deficit disorder) ADHD (attention deficit hyperactivity disorder) ([facility]) Anxiety Bacterial vaginosis Bipolar disorder ([facility]) Club foot Depression ([facility]) Female infertility Heart problem Hormone imbalance HISTORY PAST MEDICAL HISTORY SOCIAL HISTORY Past Medical History: Diagnosis Date Abscess ADD (attention deficit disorder) ADHD (attention deficit hyperactivity disorder) ([facility]) Anxiety Bacterial vaginosis Bipolar disorder ([facility]) Club foot Depression ([facility]) Female infertility Heart problem Heart Issue Hormone imbalance Social History Tobacco Use Smoking status: Never Smokeless tobacco: Not on file Substance Use Topics Alcohol use: Never Drug use: Never FAMILY HISTORY No family history on file. SURGICAL HISTORY Past Surgical History: Procedure Laterality Date BREAST SURGERY Breast Reduction CARDIAC SURGERY FOOT SURGERY REVIEW OF SYSTEMS Review of Systems: Review of Systems Constitutional: Negative. HENT: Negative. Eyes: Negative. Respiratory: Negative. Cardiovascular: Negative. Gastrointestinal: Negative. Genitourinary: Negative. Musculoskeletal: Negative. Skin: Negative. Neurological: Negative. All other systems reviewed and are negative. Hematological: Negative. Endocrine: Negative. Allergic/Immunologic: Negative. OBJECTIVE Objective: Physical Exam Constitutional: Appearance: Normal appearance. She is normal weight. HENT: Head: Normocephalic. Cardiovascular: Rate and Rhythm: Normal rate. Pulses: Normal pulses.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
[2024-09-07 12:02] LABS: Basophils Percent Auto 0.2 % (0.2-2.0); Eosinophils Absolute Auto 0.1 10^3/uL (0.0-0.7); Eosinophils Percent Auto 0.6 % (0.9-7.0); Hematocrit 34.2 % (36.0-48.0); Hemoglobin 11.1 g/dL (12.0-16.0); Immature Granulocytes Abs Auto 0.12 10^3/uL (0.00-0.03); Immature Granulocytes Pct Auto 1.1 % (0.0-0.5); Lymphocytes Absolute Auto 1.4 10^3/uL (1.2-3.8); Lymphocytes Percent Auto 12.3 % (20.5-60.0); Mean Corpuscular HGB Conc 32.5 g/dL (29.9-35.2); Mean Corpuscular Hemoglobin 28.1 pg (26.7-34.0); Mean Corpuscular Volume 86.6 fL (81.0-99.0); Mean Platelet Volume 9.8 fL (9.5-13.5); Monocytes Absolute Auto 0.5 10^3/uL (0.3-0.8); Monocytes Percent Auto 4.8 % (1.7-12.0); Neutrophils Absolute Auto 9.1 10^3/uL (1.4-6.5); Platelet Count 186 10^3/uL (150-450); Red Blood Count 3.95 10^6/uL (4.20-5.40); Red Cell Distribution Width 13.4 % (11.0-15.0); White Blood Count 11.3 10^3/uL (4.0-11.0)
[2024-09-07 12:51] LABS: Glucose 1 Hour 102 mg/dL (<130)
== END 2024-09-07 10:31 | disposition home or self-care (01) ==
LOC: LAB 10:32
PROVIDERS: Visit Provider Obstetrics & Gynecology
DX: Z13.1 Encounter for screening for diabetes mellitus (principal); Z3A.23 23 weeks gestation of pregnancy
CPT/HCPCS: 36415; 82950; 85025

== ENCOUNTER 2024-09-10 15:15 | Outpatient (REF) | payer MEDICAID, SELFPAY ==
[2024-09-14 12:08] LABS: Age Gdln ACOG Testing Note (.); HPV Aptima Negative (Negative); IGP, Aptima HPV, rfx 16/18,45 Note (.)
== END 2024-09-10 15:16 | disposition home or self-care (01) ==
LOC: LAB 15:15
PROVIDERS: Visit Provider Obstetrics & Gynecology
DX: Z01.419 Encounter for gynecological examination (general) (routine) without abnormal findings (principal)
CPT/HCPCS: 87624; 88175

== ENCOUNTER 2024-09-21 19:21 | Emergency (ER) | payer MEDICAID, SELFPAY ==
[2024-09-21 19:27] VITALS: BP 148/92; PULSE 89; TEMP 36.8; O2SAT 99; BMI 26.6
--- NOTE | 2024-09-21 19:48 | ED.SKABFB1 ---
HPI - Skin/Abscess/Foreign Bdy General Chief complaint: Skin/Abscess/Foreign Body Stated complaint: POSS BOIL ON BACK Time Seen by Provider: 09/21/24 19:35 Source: patient Mode of arrival: walk-in Limitations: no limitations History of Present Illness HPI narrative: Patient is a 34 year old female who presents to the ED for the evaluation of a possible abscess to the left shoulder. She is 25 weeks . She states she popped a pimple on her shoulder earlier today with pus expressed. She states now the area is swollen, painful and hard. No fevers or vomiting, no concerns. She has a history of boils on her chest in the past. Related Data Home Medications ?Medication ?Instructions ?Recorded ?Confirmed 2 tab PO DAILY 07/28/23 09/21/24 Previous Rx's ?Medication ?Instructions ?Recorded clindamycin HCl 150 mg capsule 300 mg (2 x 150 mg) PO Q6H 7 days 09/21/24 #56 caps Allergies Allergy/AdvReac Type Severity Reaction Status Date / Time Penicillins Allergy Severe Anaphylaxis Verified 09/21/24 19:34 Sulfa (Sulfonamide Allergy Intermediate Hives Verified 09/21/24 19:34 Antibiotics) Review of Systems ROS Constitutional Denies: fever or chills Ears, nose, mouth, and throat Denies: throat pain or nasal congestion Respiratory Denies: shortness of breath Gastrointestinal Denies: nausea or vomiting Integumentary/Breast Reports: redness, skin pain and skin tenderness; Denies: rash Hematologic/Lymphatic Denies: easy bruising or easy bleeding [facility] Medical History (Updated 09/21/24 @ 19:48 by FERMIN Potter) (spontaneous vaginal delivery) ?O80 - Encounter for full-term uncomplicated delivery (ICD-10) Social History Smoking status: Former smoker Little interest or pleasure in doing things: not at all Feeling down, depressed, or hopeless: not at all Exam Narrative Exam Narrative: Gen.: Awake, alert, in no distress Head: Normocephalic, atraumatic ENT: Moist mucous membranes Respiratory: No respiratory distress Extremities: Moves extremities equally Psych: Normal mood and affect Neuro: No focal neuro deficit Skin: Warm, dry, intact; left shoulder with a 3 cm indurated area, central open pustule. No active draining or fluctuance Constitutional Vital Signs, click to edit/add: Last Vital Signs Temp 98.3 F 09/21/24 19:27 Pulse 89 09/21/24 19:27 Resp 16 09/21/24 19:27 BP 148/92 H 09/21/24 19:27 Pulse Ox 99 09/21/24 19:27 O2 Del Method Room Air 09/21/24 19:27 Course Vital Signs Vital signs: Vital Signs Temperature 98.3 F 09/21/24 19:27 Pulse Rate 89 09/21/24 19:27 Respiratory Rate 16 09/21/24 19:27 Blood Pressure 148/92 H 09/21/24 19:27 Pulse Oximetry 99 09/21/24 19:27 Oxygen Delivery Method Room Air 09/21/24 19:27 Temperature 98.3 F 09/21/24 19:27 Pulse Rate 89 09/21/24 19:27 Respiratory Rate 16 09/21/24 19:27 Blood Pressure 148/92 H 09/21/24 19:27 Pulse Oximetry 99 09/21/24 19:27 Oxygen Delivery Method Room Air 09/21/24 19:27 MDM - Skin/Abscess/Foreign Bdy MDM Narrative Medical decision making narrative: Exam is consistent with an abscess to the left shoulder that is small and likely drained earlier as a pustule. No residual fluctuance to indicate incision and drainage. Patient treated with clindamycin as she has a history of previous boils, possible MRSA and she is allergic to penicillin and sulfa. Return to the ER if symptoms change or worsen. Warm compresses encouraged. SUPERVISED APC VISIT, PHYSICIAN ATTESTATION: Based on the medical record the care appears appropriate. ? Medical Records Attestation: I reviewed the patient's medical records. Discharge Plan Discharge Chief Complaint: Skin/Abscess/Foreign Body Clinical Impression: Abscess of skin or subcutaneous tissue Patient Disposition: Home, Self-Care Time of Disposition Decision: 19:46 Prescriptions / Home Meds: New clindamycin HCl 150 mg capsule 300 mg PO Q6H 7 Days Qty: 56 0RF No Action 2 tab PO DAILY Print Language: Hebrew Instructions: Abscess (ED) Referrals: Physician,Non-Staff, MD [Primary Care Provider] - 1 week Discharge Date/Time: 09/21/24 19:54
--- OUTSIDE RECORDS SUMMARY | 2024-09-21 19:59 | XMS_ITS | CCD ---
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 Name Role Phone CLARA JAMA Unavailable Unavail able SERENITY MALDONADO Unavailable Unavailable OKSANA CARO Unavailable UnaNAGA Bai Unavailable Unavailable BARBOSA, LUKE MALIK Unavailable Unavailable Eloisa Nguyen R Unavailable Unavailable Patrick, Eloisa R Unavailable Unavailable Barbosa, Luke Unavailable Unavailable Henderson, Christian A Unavailable Unavailable Barbosa, Luke Unavailable Unavailable Henderson, Christian A Unavailable Unavailable Barbosa, Luke Unavailable Unavailable Shekhar, Christian A Unavailable Unavailable Barbosa, Luke Unavailable Unavailable Henderson, Christian A Unavailable Unavailable Barbosa, Luke Unavailable Unavailable Shekhar, Christian A Unavailable Unavailable Henderson, Christian A Unavailable Unavailable Barbosa, Luke Unavailable Unavailable Henderson, Christian A Unavailable Unavailable Barbosa, Luke Unavailable Unavailable Henderson, Christian A Unavailable Unavailable Shekhar, Christian A Unavailable Unavailable Barbosa, Luke Unavailable Unavailable Barbosa, Luke Unavailable Unavailable Woo, Emiliano Unavailable Unavailable Woo, Emiliano Unavailable Unavailable Eloisa Nguyen R Unavailable Unavailable Barbosa, Luke Unavailable Unavailable Barbosa, Luke Unavailable Unavailable Oscar, Jag W Unavailable Unavailable Oscar, Jag W Unavailable Unavailable Henderson, Christian A Unavailable Unavailable Barbosa, Luke Unavailable Unavailable Henderson, Christian A Unavailable Unavailable Barbosa, Luke Unavailable [...] No Doctor Assigned, Nodr Unavailable Unavail able Camanche, Jag W Unavailable Unavailable Camanche, Jag W Unavailable Unavailable Barbosa, Luke Unavailable Unavailable No Doctor Assigned, Nodr Unavailable Unavail able Gamaliel Savage Unavailable Unavailable Barbosa, Luke Unavailable Unavailable Hannah, Aaron A Unavailable Unavailable Hannah, Aaron A Unavailable Unavailable Patrick, Eloisa R Unavailable Unavailable Patrick, Eloisa R Unavailable Unavailable Barbosa, Luke Unavailable Unavailable Frank, Juanita Unavailable Unavailable Frank, Juanita Unavailable Unavailable Barbosa, Luke Unavailable Unavailable Henderson, Christian A Unavailable Unavailable Henderson, Christian A Unavailable Unavailable Barbosa, Luke Unavailable Unavailable Henderson, Christian A Unavailable Unavailable Barbosa, Luke Unavailable Unavailable Barbosa, Luke Unavailable Unavailable Oscar, Jag W Unavailable Unavailable Oscar, Jag W Unavailable Unavailable Henderson, Christian A Unavailable Unavailable Barbosa, Luke Unavailable Unavailable Gamaliel Savage Unavailable Unavailable Gamaliel Savage Unavailable Unavailable Barbosa, Luke Unavailable Unavailable Henderson, Christian A Unavailable Unavailable Barbosa, Luke Unavailable Unavailable JAMA, CLARA Unavailable Unavailable SHEKHAR, CHRISTIAN Unavailable Unavailable PROVIDER, EXTERNAL Unavailable Unavailable JAMA, CLARA Unavailable Unavailable SHEKHAR, CHRISTIAN Unavailable Unavailable PROVIDER, EXTERNAL Unavailable Unavailable PATEL, WASIM Unavailable Unavailable PATEL, WASIM Unavailable Unavailable PROVIDER, EXTERNAL Unavailable Unavailable JIGNASANTOSHE Unavailable Unavailable FRANK, JUANITA Unavailable Unavailable PROVIDER, [...] Unavailable PROVIDER, EXTERNAL Unavailable Unavailable EHRENBERG BUCHNER, OKASNA Unavailable Unavai lable BACAK, MARCO ANTONIO J [...] Emergency Provider SADAF Wyatt Primary Care Provider [facility] Elle Whitney Emergency Provider [phone] DIANA ., DR ACOSTA Consulting Unavailable [facility] Care Unavailable DIANA ., DR ACOSTA Attending Unavailable DIANA ., DR ACOSTA Admitting Unavailable DIANA ., DR ACOSTA Admitting Unavailable DIANA ., DR ACOSTA Attending Unavailable [facility] Primary Care Unavailable DIANA ., DR ACOSTA Consulting Unavailable ZIEBER, DR FELECIA Chadwick Consulting Unavailable [facility] Primary Care Unavailable KARASIK ., DR CAMACHO Admitting Unavailabl e KARASIK ., DR CAMACHO Attending Unavailabl e KARASIK ., DR CAMACHO Consulting Unavailabl e ALISIA, DR GAMALIEL Fischer Consulting Unavailable DIANA ., DR ACOSTA Consulting Unavailable ZIEBER, DR FELECIA Chadwick Consulting Unavailable WILLIAMS ., ELENA Admitting Unavailable WILLIAMS ., ELENA Attending Unavailable [facility] Primary Care Unavailable WILLIAMS ., ELENA Consulting Unavailable DIANA ., DR ACOSTA Admitting Unavailable DIANA ., DR ACOSTA Attending Unavailable [facility] Primary Care Unavailable DIANA ., DR ACOSTA Consulting Unavailable [facility] Primary Care Unavailable KARASIK ., DR CAMACHO Admitting Unavailabl e KARASIK ., DR CAMACHO Attending Unavailabl e KARASIK ., DR CAMACHO Consulting Unavailabl e DIANA ., DR ACOSTA Admitting Unavailable DIANA ., DR ACOSTA Attending Unavailable [facility] Primary Care Unavailable DIANA ., DR ACOSTA Consulting Unavailable ZIEBER, DR FELECIA Chadwick Consulting Unavailable DIANA ., DR ACOSTA Admitting Unavailable DIANA ., DR ACOSTA Attending Unavailable [facility] Primary Care Unavailable DIANA ., DR ACOSTA Consulting Unavailable ZIEBER, DR FELECIA Chadwick Consulting Unavailable PRATIMA, BRODIE Consulting Unavailable DIANA ., DR ACOSTA Consulting Unavailable [facility] Primary Care Unavailable DIANA ., DR ACOSTA Attending Unavailable DIANA ., DR ACOSTA Admitting Unavailable ZIEBER, DR FELECIA Chadwick Consulting Unavailable DIANA ., DR ACOSTA Consulting Unavailable [facility] Primary Care Unavailable DIANA ., DR ACOSTA Attending Unavailable DIANA ., DR ACOSTA Admitting Unavailable DIANA ., DR ACOSTA Admitting Unavailable DIANA ., DR ACOSTA Attending Unavailable [facility] Primary Care Unavailable DIANA ., DR ACOSTA Consulting Unavailable ZIEBER, DR FELECIA Chadwick Consulting Unavailable DIANA ., DR ACOSTA Admitting Unavailable DIANA ., DR ACOSTA Attending Unavailable [facility] Primary Care Unavailable WEST, DR GAMALIEL Fischer Consulting Unavailable DIANA ., DR ACOSTA Consulting Unavailable [facility] Primary Care Unavailable KARASIK ., DR CAMACHO Admitting Unavailabl e KARASIK ., DR CAMACHO Attending Unavailabl e KARASIK ., DR CAMACHO Consulting Unavailabl e DIANA ., DR ACOSTA Consulting Unavailable ZIEBER, DR FELECIA Chadwick Consulting Unavailable DIANA ., DR ACOSTA Admitting Unavailable DIANA ., DR ACOSTA Attending Unavailable [facility] Primary Care Unavailable WEST, DR GAMALIEL Fischer Consulting Unavailable DIANA ., DR ACOSTA Consulting Unavailable DIANA ., DR ACOSTA Admitting Unavailable DIANA ., DR ACOSTA Attending Unavailable [facility] Primary Care Unavailable DIANA ., DR ACOSTA Consulting Unavailable DIANA ., DR ACOSTA Admitting Unavailable DIANA ., DR ACOSTA Attending Unavailable [facility] Primary Care Unavailable DIANA ., DR ACOSTA Consulting Unavailable ZIEBER, DR FELECIA Chadwick Consulting Unavailable DIANA ., DR ACOSTA Admitting Unavailable DIANA ., DR ACOSTA Attending Unavailable [facility] Primary Care Unavailable DIANA ., DR ACOSTA Consulting Unavailable DIANA ., DR ACOSTA Admitting Unavailable DIANA ., DR ACOSTA Attending Unavailable [facility] Primary Care Unavailable DIANA ., DR ACOSTA Consulting Unavailable [facility] Primary Care Unavailable DIANA ., DR ACOSTA Attending Unavailable DIANA ., DR ACOSTA Admitting Unavailable DIANA ., DR ACOSTA Admitting Unavailable DIANA ., DR ACOSTA Attending Unavailable [facility] Primary Care Unavailable DIANA ., DR ACOSTA Admitting Unavailable DIANA ., DR ACOSTA Attending Unavailable [facility] Primary Care Unavailable KARASIK ., DR CAMACHO Consulting Unavailabl e DIANA ., DR ACOSTA Consulting Unavailable DIANA ., DR ACOSTA Procedure Practitioner Unavail able ORLANDO PRASAD Consulting Unavailable JACQUES FLETCHER Consulting Unavailable DIANA ., DR ACOSTA Admitting Unavailable DIANA ., DR ACOSTA Attending Unavailable [facility] Primary Care Unavailable KARASIK ., DR CAMACHO Consulting Unavailabl e ZIEBER, DR FELECIA Chadwick Consulting Unavailable SADAF Wyatt Primary Care Provider MD Farhan Jean Attending Provider DO Ryan Poe Emergency Provider DO Arden Orozco Admit Provider DO Arden Orozco Attending Provider [phone] Clon, CST Igor Other Provider UnavailMD Juan Edwards Other Provider HAROON Monique Other Provider [phone] MD Jacques Valerio Other Provider MD Edith Urias Other Provider SADAF Wyatt Primary Care Provider Meagan, [facility] Emergency Provider BRANNON Valencia Emergency Provider Andie Johnson Unavailable Unallocated, [place] Provider Primary Care Provider AMAURI RODRIGUEZ Referring Unavailable ANDIE WYATT Primary Care Unavailable DIANA, CUONG R Referring Unavailable ANDIE WYATT Primary Care Unavailable Unallocated Juan Antonio CHAU Provider Primary Care Provi kwabena Andie Wyatt PA-C Primary Care Provider Diana DO, Cuong Attending Provider Andie Wyatt Primary Care Unavailable Diana, Cuong Attending Unavailable Diana, Cuong Admitting Unavailable Andie Wyatt PA-C Primary Care Provider [phone] DIANA, CUONG R Referring Unavailable ANDIE WYATT Primary Care Unavailable ASHWIN PACKER Attending Unavailable ANDIE WYATT Referring Unavailable ANDIE WYATT Primary Care Unavailable DIANA, CUONG Attending Unavailable ELENA FOFANA Attending Unavailable DIANA, CUONG Attending Unavailable DIANA, CUONG Attending Unavailable DIANA, CUONG Attending Unavailable DIANA, CUONG Attending Unavailable DIANA, CUONG Attending Unavailable DIANA, CUONG Attending Unavailable Allergies Allergy Classification Reported Allergen(s) Allergy Type Date of Onset Reaction(s) Facility (2 sources) Bee; Translations: [BEES] Propensity to adverse reactions (disorder) [facility] Mold spore; Translations: [MOLD SPORES] Propensity to adverse reactions (disorder) 12-01-19 18 [facility] Repository (20 sources) Penicillins; Translations: [PENICILLINS] Propensity to adverse reactions to drug (disorder) 11-27-19 14 Hives [facility] Repository (16 sources) Sulfonamides (Antibiotic); Translations: [SULFA (SULFONAMIDE ANTIBIOTICS)] Propensity to adverse reactions to drug (disorder) 12-01-19 18 AOF, Rash [facility] Repository (1 source) Bee/Wasp/Ant venom; Translations: [Bee Stings] Propensity to adverse reactions to drug (disorder) [facility] Repository (3 sources) mold extract; Translations: [Mold] Drug Allergy 08-13-19 25 [facility] Repository (1 source) Sulfonamides (Antibiotic); Translations: [sulfa drugs] Propensity to adverse reactions to drug (disorder) [facility] Repository (17 sources) bee venom; Translations: [BEE VENOM] Propensity to adverse reactions to drug (disorder) 07-18-19 18 [facility] Repository (1 source) OTHER; Translations: [OTHER] Propensity to adverse reactions to food (disorder) 11-22-19 18 [facility] Repository (8 sources) MOLDS & SMUTS; Translations: [MOLDS & SMUTS] Propensity to adverse reactions to drug (disorder) 07-18-19 18 [facility] Repository (17 sources) SULFA ANTIBIOTICS; Translations: [SULFA ANTIBIOTICS] Propensity to adverse reactions to drug (disorder) 07-18-[address] [facility] Repository (1 source) Sulfonamides (Antibiotic) Drug allergy (disorder) 11-27-19 14 [facility] Repository (7 sources) BEE VENOM PROTEIN (HONEY BEE); Translations: [BEE VENOM PROTEIN (HONEY BEE)] Propensity to adverse reactions to drug (disorder) 03-27-20 22 [facility] Repository (2 sources) Penicillin; Translations: [penicillin V] Drug Allergy 03-15-19 92 anaphylaxis [facility] (2 sources) Sulfacetamide; Translations: [sulfacetamide] Drug Allergy 03-15-19 92 anaphylaxis [facility] (7 sources) Bee pollen Allergy to substance 08-13-19 25 [facility] (7 sources) Penicillin G Drug Allergy 02 [facility] (7 sources) Sulfamethoxazole Allergy to substance 08-13-19 [facility] Healthcare Medications Current Medications Medication Drug Class(es) [...] mouth in the morning. 0 02/27/2023 Active [facility] (No Known Home Meds) (2 sources) Start: 12-18-2022 [facility] (No Known Home Meds) Active December 18, [...] (-1 ORAL) Take by mouth. 0 Active Kkdhmsjo-Gnc-Py-FA (, w/Iron & FA,) 27-0.8 MG tablet (3 sources) Vujfopyq-Zuq-Rk-FA (, w/Iron & FA,) 27-0.8 MG tablet 1 (one) time each day at the same time. 0 Active YG-Fmu-OP-Argenta-3 ( Gummies/DHA & FA) 0.4-32.5 MG chewable tablet (3 sources) Start: End: JO-Xzx-VS-Argenta-3 ( Gummies/DHA & FA) 0.4-32.5 MG chewable tablet Indications: 18 weeks gestation of Chew 0.4 mg in the morning. 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 Other female genital disorders (2 sources) Vaginal discharge; Translations: [Other specified noninflammatory disorders of vagina] 09-10-2024 Episodic Other injuries and conditions due to [...] [20 weeks gestation of ] 08-13-2024 Episodic Residual codes; unclassified (2 sources) Gestation period, 24 weeks; Translations: [24 weeks gestation of ] 09-10-2024 Episodic Screening and history of mental health [...] Onset: 11-30-2017 Unclassified (3 sources) 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 NA/UNS; Translations: [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 NA/UNS] Onset: 07-05-2022 Unclassified (11 sources) OB Reminders Onset: 06-23-2024 06-23-2024 Unclassified [...] ] Onset: 12-12-2021 Episodic Residual codes; unclassified (13 sources) Family history of trisomy 13; Translations: [Family history of other congenital malformations, deformations and chromosomal abnormalities] Onset: 09-30-2023 09-30-2023 Episodic Unclassified (1 source) 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 [facility] Comment on above: TESTS RESULT FLAG UN ITS REF RANGE LAB Clinician Provided Cytology Information Source.............[facility] Other.............. No. of containers..01 ThinPrep Vial Age Algo ACOG Krista... FLAG LEGEND: L-Low Normal,H-High Normal,LL-Alert Low,HH-Alert High <-Panic Low,>-Panic High,A-Abnormal,AA-Critical Abnormal Performed at: 01 =[address] [address] Joann Denney MD, HPV APTIMA Negative Negative [facility] Comment on above: This nucleic acid am plification test detects fourteen high- risk HPV types (16,18,31,33,35,39,45,51,52,56,58,59,66,68) without differentiation. Performed at: =[address] [id number] [facility] Injector: Joann Denney MD, Phone: [phone] Performed at: [address] [id number] [facility] Injector: Joann Denney MD, Phone: [phone] IGP, APTIMA HPV, RFX 16/18,45 Note . [facility] Comment on above: TESTS RESULT FLAG UN ITS REF RANGE LAB DIAGNOSIS: 02 NEGATIVE FOR INTRAEPITHELIAL LESION OR MALIGNANCY. Specimen adequacy: 02 Satisfactory for evaluation. No endocervical component is identified. An endocervical component is not commonly seen in the patient. Performed by: Diane Martel Wood Patternmaker (ASCP) . 02 Note: Note 02 The Pap smear is a screening test designed to aid in the detection of premalignant and malignant conditions of the uterine cervix. It is not a diagnostic procedure and should not be used as the sole means of detecting cervical cancer. Both false-positive and false-negative reports do occur. Test Methodology: Note 02 This liquid based ThinPrep(R) pap test was screened with the use of an image guided system. HPV Genotype Reflex Note 02 Criteria not met, HPV Genotype not performed. FLAG LEGEND: L-Low Normal,H-High Normal,LL-Alert Low,HH-Alert High <-Panic Low,>-Panic High,A-Abnormal,AA-Critical Abnormal Performed at: [address] [facility] [address] [id number] Joann Denney MD, SPATULA-ALONE ENDOCERVIX [facility] Urinalysis macro (dipstick) panel (U)on 09-14-2024 Bilirubin, UA Negative Negative - 4(70) +++ mg/dL [facility] Blood, UA Negative Negative - 50 Rakesh/mcL [facility] Clarity, UA Clear [facility] Color, UA Yellow [facility] Glucose, UA Negative Negative - 1999(110) ++++ mg/dL [facility] Interpretation and review of laboratory results Normal [facility] Ketones, UA Negative Negative - 160(16) ++++ mg/dL [facility] Leukocytes, UA Negative Negative - 500+++ Matti/mcL [facility] Nitrite, UA Negative Negative - Positive [facility] pH, UA 5.5 5 - 9 [facility] Protein, UA Negative Negative - 1999(20) ++++ mg/dL [facility] Spec Grav, UA 1.03 1 - 1.03 [facility] Urobilinogen, UA 1.0 0.2 - 12 mg/dL [facility] RECURRENT VAGINITIS (HTRX)on 09-11-2024 ATOPOBIUM VAGINAE 0 [facility] ATOPOBIUM VAGINAE Not detected [facility] BVAB 2,3 (BACTERIAL VAGINOSIS ASSOCIATED BACTERIA 2, 3); MOBILUNCUS SPP 0 [facility] BVAB 2,3 (BACTERIAL VAGINOSIS ASSOCIATED BACTERIA 2, 3); MOBILUNCUS SPP Not detected [facility] JEREMY ALBICANS, PARAPSILOSIS, TROPICALIS 0 [facility] JEREMY ALBICANS, PARAPSILOSIS, TROPICALIS Not detected [facility] JEREMY GLABRATA 0 [facility] JEREMY GLABRATA Not detected [facility] JEREMY KRUSEI 0 [facility] JEREMY KRUSEI Not detected [facility] CHLAMYDIA TRACHOMATIS 0 [facility] CHLAMYDIA TRACHOMATIS Not detected [facility] GARDNERELLA VAGINALIS 0 [facility] GARDNERELLA VAGINALIS Not detected [facility] MEGASPHAERA (TYPES 1, 2) 0 [facility] MEGASPHAERA (TYPES 1, 2) Not detected [facility] MYCOPLASMA GENITALIUM 0 [facility] MYCOPLASMA GENITALIUM Not detected [facility] NEISSERIA GONORRHOEAE 0 [facility] NEISSERIA GONORRHOEAE Not detected [facility] TRICHOMONAS VAGINALIS 0 [facility] TRICHOMONAS VAGINALIS Not detected [facility] US OB 14+ WEEKS ANATOMY SCAN on [...] II, MD, PHD at 15-Aug-2024 07:21:28 AM [facility] Normal Not Available Comment on above: Order Comment: US OB ANATOMY SINGLE W US OB CERVICAL LENGTH Estimated Date of Delivery: 12/29/24 Gestational Age as of 07/20/2024: 16w6d AFP, SERUM, OPEN SPINA BIFID Aon 07-22-2024 AFP MOM 1.18 . [facility] AFP VALUE 42.2 ng/mL . [facility] COMMENT: Comment . [facility] Comment on above: Alma Chaudhary , Ph.D., [facility] Director References: Available Upon Request. Multiples Of Median Cutoffs For AFP Elevations Briscoe 2.5 Black 2.8 IDD 2.0 Twins 4.5 Abbreviation Definitions IDD - Insulin Dep Diabetes OSBR - Open Spina Bifida Risk For further inquiries contact [employer] [facility] at [phone]. This test was developed and its performance characteristics determined by [employer]. It has not been cleared or approved by the Food and Drug Administration. Performed at: [facility] [address], [place] [id number] [employer] [facility] Injector: Oz Harkins [facility], Phone: [phone] GEST. AGE ON COLLECTION DATE 16.9 . weeks [facility] GESTAT. AGE BASED ON LMP . [facility] Comment on above: Recalculations are n ot recommended when gestational dating by LMP and ultrasound are within 10 days. INSULIN DEP DIABETES No . [facility] INTERPRETATION Comment . [facility] Comment on above: Interpretation: Scre [...] Customer Services to discuss available options. The [employer] recommends amniocentesis be offered to women age 35 and older. [age] [facility] MULTIPLE GESTATION No . [facility] OSBR RISK 1 IN 16 . [facility] RACE . [facility] RESULTS Report . [facility] TEST RESULTS: Negative . [facility] WEIGHT 159 . lbs [facility] N N LMP [id number] 16 N 1 159 N N N N N White/ [facility] Urinalysis macro (dipstick) panel (U)on 07-20-2024 Bilirubin, UA Negative Negative - 4(70) +++ mg/dL [facility] Blood, UA Negative Negative - 50 Rakesh/mcL [facility] Clarity, UA Clear [facility] Color, UA Yellow [facility] Glucose, UA Negative Negative - 2000(110) ++++ mg/dL [facility] Interpretation and review of laboratory results Abnormal [facility] Ketones, UA Negative Negative - 160(16) ++++ mg/dL [facility] Leukocytes, UA Trace Negative - 500+++ Matti/mcL [facility] Nitrite, UA Negative Negative - Positive [facility] pH, UA 6 5 - 9 [facility] Protein, UA Negative Negative - 2000(20) ++++ mg/dL [facility] Spec Grav, UA 1.03 1 - 1.03 [facility] Urobilinogen, UA 0.2 0.2 - 12 mg/dL [facility] ALL CBC WITH AUTO DIFFon BASOPHILS ABSOLUTE AUTO 0 [facility] Basophils/100 WBC (Bld) 0.3 % 0.2 - 2.0 % [facility] Eosinophils/100 WBC (Bld) 0.7 % Low 0.9 - 7.0 % [facility] Erythrocyte distribution width (RBC) [Ratio] 14.4 % 11.0 - 15.0 % [facility] Hematocrit (Bld) [Volume fraction] 42.1 % 36.0 - 48.0 % [facility] Hemoglobin (Bld) [Mass/Vol] 13.6 g/dL 12.0 - 16.0 g/dL [facility] IMMATURE GRANULOCYTES ABS AUTO 0.02 [facility] Immature granulocytes/100 WBC (Bld) 0.3 % 0.0 - 0.5 % [facility] Interpretation and review of laboratory results Abnormal [facility] LYMPHOCYTES ABSOLUTE AUTO 1.2 [facility] Lymphocytes/100 WBC (Bld) 15.9 % Low 20.5 - 60.0 % [facility] MCH (RBC) [Entitic mass] 27.6 pg 26.7 - 34.0 pg [facility] MCHC (RBC) [Mass/Vol] 32.3 g/dL 29.9 - 35.2 g/dL [facility] MCV (RBC) [Entitic vol] 85.4 fL 81.0 - 99.0 fL [facility] MONOCYTES ABSOLUTE AUTO 0.4 [facility] Monocytes/100 WBC (Bld) 5.2 % 1.7 - 12.0 % [facility] NEUTROPHILS ABSOLUTE AUTO 5.7 [facility] Neutrophils/100 WBC (Bld) 77.6 % High 43.0 - 75.0 % [facility] Platelet mean volume (Bld) [Entitic vol] 10 fL 9.5 - 13.5 fL [facility] TBH EO # 0.1 [facility] PLT 194 [facility] TB RBC 4.93 [facility] TBH WBC 7.4 [facility] Urine Cultureon 06-22-2024 Bacteria identified Cx Nom (U) <9,000 colonies/ml mixed bacterial skin contaminants 2 Days PERFORMED BY: [place] [address] PATHOLOGIST HISTOPATHOLOGY TECHNICIAN JONO WILSON M.D. Normal [facility] Comment on above: Performed By: #### C UU #### [address] HCG ( test) Ql (U)o n 06-18-2024 Interpretation and review of laboratory results Abnormal [facility] Preg Test, Ur Positive Negative [facility] Urinalysis macro (dipstick) panel (U)on 06-18-2024 Bilirubin, UA Negative Negative - 4(70) +++ mg/dL [facility] Blood, UA Negative Negative - 50 Rakesh/mcL [facility] Clarity, UA Clear [facility] Color, UA Yellow [facility] Glucose, UA Negative Negative - 1999(110) ++++ mg/dL [facility] Interpretation and review of laboratory results Abnormal [facility] Ketones, UA Negative Negative - 160(16) ++++ mg/dL [facility] Leukocytes, UA Negative Negative - 500+++ Matti/mcL [facility] Nitrite, UA Negative Negative - Positive [facility] pH, UA 6.5 5 - 9 [facility] Protein, UA Negative Negative - 2000(20) ++++ mg/dL [facility] Spec Grav, UA 1.015 1 - 1.03 [facility] Urobilinogen, UA 0.2 0.2 - 12 mg/dL [facility] AFP, SERUM, OPEN SPINA BIFID Aon 07-20-2023 AFP MOM 1.21 . [facility] AFP VALUE 70.2 ng/mL . [facility] COMMENT: Comment . [facility] Comment on above: Alma Chaudhary , Ph.D., [facility] Director References: Available Upon Request. Multiples Of Median Cutoffs For AFP Elevations Briscoe 2.5 Black 2.8 IDD 2.0 Twins 4.5 Abbreviation Definitions IDD - Insulin Dep Diabetes OSBR - Open Spina Bifida Risk For further inquiries contact [employer] at [phone]. This test was developed and its performance characteristics determined by [employer]. It has not been cleared or approved by the Food and Drug Administration. Performed at: [facility] [address] [place], [place] [id number] [employer] Injector: Oz [facility], Phone: [phone] GEST. AGE ON COLLECTION DATE 20.4 . weeks [facility] GESTAT. AGE BASED ON LMP . [facility] Comment on above: Recalculations are n ot recommended when gestational dating by LMP and ultrasound are within 10 days. INSULIN DEP DIABETES No . [facility] INTERPRETATION Comment . [facility] Comment on above: Interpretation: Scre [...] Customer Services to discuss available options. The [employer] recommends amniocentesis be offered to women age 35 and older. [age] [facility] MULTIPLE GESTATION No . [facility] OSBR RISK 1 [place] 6301 . [facility] RACE . [facility] RESULTS Report . [facility] TEST RESULTS: Negative . [facility] WEIGHT 159 . lbs [facility] N N LMP [id number] 3 16 N 1 Y 159 N N N N White/ [facility] Urinalysis macro (dipstick) panel (U)on 07-18-2023 Bilirubin, UA Negative Negative - 4(70) +++ mg/dL [facility] Blood, UA Negative Negative - 50 Rakesh/mcL [facility] Clarity, UA Clear [facility] Color, UA Yellow [facility] Glucose, UA Negative Negative - 1999(110) ++++ mg/dL [facility] Interpretation and review of laboratory results Normal [facility] Ketones, UA Negative Negative - 160(16) ++++ mg/dL [facility] Leukocytes, UA Negative Negative - 500+++ Matti/mcL [facility] Nitrite, UA Negative Negative - Positive [facility] pH, UA 5.5 5 - 9 [facility] Protein, UA Negative Negative - 2000(20) ++++ mg/dL [facility] Spec Grav, UA 1.020 1 - 1.03 [facility] Urobilinogen, UA 1.0 0.2 - 12 mg/dL [facility] Free Cell DNAon 2022 [facility] Amphetamine Screen Ql (U)Ord ered By: Ryan Poe on 12-19-2022 Amphetamines Ql (U) Negative Negative [facility] Automated erythrocytes count in urine sediment (number/area)Ordered By: Ryan Poe on 12-19-2022 RBC Auto (Urine sed) [#/Area] 5-9 [HPF] 0-4 [facility] Automated leukocytes count i n urine sediment (number/area)Ordered By: Ryan Poe on 12-19-2022 WBC Auto (Urine sed) [#/Area] 10-19 [HPF] 0-4 [facility] Barbiturates [Presence] in U rine by Screen methodOrdered By: Ryan Poe on 12-19-2022 Barbiturates Screen Ql (U) Negative Negative [facility] Benzodiazepines Screen Ql (U )Ordered By: Ryan Poe on 12-19-2022 Benzodiazepines Ql (U) Negative Negative [facility] Benzoylecgonine [Presence] i n Urine by Screen methodOrdered By: Ryan Poe on 12-19-2022 Benzoylecgonine Screen Ql (U) Negative Negative [facility] Bilirubin Test strip Ql (U)O rdered By: Ryan Poe on 12-19-2022 Bilirubin Ql (U) Negative Negative [facility] Cannabinoids [Presence] in U rine by Screen methodOrdered By: Ryan Poe on 12-19-2022 Cannabinoids Screen Ql (U) Positive Negative [facility] Comment on above: These are unconfirme d results and should not be used for legal purposes. Drug Cut-Off Concentration: AMPH 1000 ng/mL SEEMA 200 ng/mL LAZ 200 ng/mL COCM 300 ng/mL OP 300 ng/mL PCP 25 ng/mL THC 20 ng/mL Color Auto (U)Ordered By: Fernando Poe on 12-19-2022 Color (U) Yellow Yellow [facility] HCG ( test) IA.rapi d Ql (U)Ordered By: Ryan Poe on 12-19-2022 HCG ( test) Ql (U) Negative [facility] Ketones Auto test strip (U) [Mass/Vol]Ordered By: Ryan Poe on 12-19-2022 Ketones (U) [Mass/Vol] 1+ Negative [facility] Laboratory - UrinalysisOrder ed By: Ryan Poe on 12-19-2022 Hyaline casts LM Ql (Urine sed) 0-8 [LPF] 0-8 [facility] Nitrite Test strip Ql (U)Ord ered By: Ryan Poe on 12-19-2022 Nitrite Ql (U) Negative Negative [facility] Opiates [Presence] in Urine by Screen methodOrdered By: Ryan Poe on 12-19-2022 Opiates Screen Ql (U) Negative Negative [facility] Phencyclidine Screen Ql (U)O rdered By: Ryan Poe on 12-19-2022 Phencyclidine Ql (U) Negative Negative [facility] Protein Auto test strip (U) [Mass/Vol]Ordered By: Ryan Poe on 12-19-2022 Protein (U) [Mass/Vol] Negative Negative [facility] Specific gravity Auto test s trip (U) [Rel density]Ordered By: Ryan Poe on 12-19-2022 Specific gravity (U) [Rel density] 1.025 1.001-1.03 0 [facility] Squamous epithelial cells de tection in urine sediment by light microscopyOrdered By: Ryan Poe on 12-19-2022 Epithelial cells.squamous LM Ql (Urine sed) 3-4 [HPF] 0-2 [facility] Urine bacteria detection by automated methodOrdered By: Ryan Poe on 12-19-2022 Bacteria Auto Ql (U) None seen None Seen [facility] Urine clarity by refractomet ry automatedOrdered By: Ryan Poe on 12-19-2022 Clarity Refractometry automated (U) Clear Clear [facility] Urine culture routineOrdered By: Ryan Poe on 12-19-2022 Bacteria identified Cx Nom (U) 2 Days [facility] Urine glucose measurement by automated test strip (mass/volume)Ordered By: Ryan Poe on 12-19-2022 Glucose Auto test strip (U) [Mass/Vol] Normal mg/dL Normal [facility] Urine hemoglobin detection b y automated test stripOrdered By: Ryan Poe on 12-19-2022 Hemoglobin Auto test strip Ql (U) Negative Negative [facility] Urine leukocyte esterase det ection by automated test stripOrdered By: Ryan Poe on 12-19-2022 Leukocyte esterase Auto test strip Ql (U) 2+ Negative [facility] Urobilinogen Auto test strip (U) [Mass/Vol]Ordered By: Ryan Poe on 12-19-2022 Urobilinogen (U) [Mass/Vol] Normal mg/dL Normal [facility] pH Auto test strip (U)Ordere d By: Ryan Poe on 12-19-2022 pH (U) 5.5 [pH] 5.0-9.0 [facility] Amylase [Enzymatic activity/ volume] in Serum or PlasmaOrdered By: Ryan Poe on 12-18-2022 Amylase [Catalytic activity/Vol] 35 U/L 29-103 [facility] Aspartate aminotransferase [ Enzymatic activity/volume] in Serum or PlasmaOrdered By: Ryan Poe on 12-18-2022 AST [Catalytic activity/Vol] 26 U/L 13-39 [facility] Basophils Auto (Bld) [#/Vol] Ordered By: Ryan Poe on 12-18-2022 Basophils (Bld) [#/Vol] 0.1 10*3/uL 0.0-0.2 [facility] Basophils/100 WBC Auto (Bld) Ordered By: Ryan Poe on 12-18-2022 Basophils/100 WBC (Bld) 0.7 % . [facility] Carbon dioxide, total [Moles /volume] in Serum or PlasmaOrdered By: Ryan Poe on 12-18-2022 CO2 [Moles/Vol] 20.0 mmol/L 21.0-31.0 [facility] Chloride [Moles/volume] in S gwendolyn or PlasmaOrdered By: Ryan Poe on 12-18-2022 Chloride [Moles/Vol] 105 mmol/L 98-107 [facility] Choriogonadotropin.beta subu nit [Units/volume] in Serum or PlasmaOrdered By: Ryan Poe on 12-18-2022 HCG.beta subunit Qn Negative [facility] Creatine kinase [Enzymatic a ctivity/volume] in Serum or PlasmaOrdered By: Ryan Poe on 12-18-2022 CK [Catalytic activity/Vol] 50 U/L 30-223 [facility] Creatinine [Mass/volume] in Serum or PlasmaOrdered By: Ryan Poe on 12-18-2022 Creatinine [Mass/Vol] 0.84 mg/dL 0.60-1.20 [facility] Eosinophils Auto (Bld) [#/Vo l]Ordered By: Ryan Poe on 12-18-2022 Eosinophils (Bld) [#/Vol] 0.0 10*3/uL 0.0-0.45 [facility] Eosinophils/100 WBC Auto (Bl d)Ordered By: Ryan Poe on 12-18-2022 Eosinophils/100 WBC (Bld) 0.2 % . [facility] Erythrocyte distribution wid th Auto (RBC) [Ratio]Ordered By: Ryan Poe on 12-18-2022 Erythrocyte distribution width (RBC) [Ratio] 14.4 % 11.9-15.3 [facility] Ethanol [Mass/volume] in Ser um or PlasmaOrdered By: Ryan Poe on 12-18-2022 Ethanol [Mass/Vol] mg/dL [facility] Ethanol [Mass/Vol] TNP [facility] Comment on above: Test not performed Glucose [Mass/volume] in Ser um or PlasmaOrdered By: Ryan Poe on 12-18-2022 Glucose [Mass/Vol] 93 mg/dL 70-100 [facility] Comment on above: ADA recommended refe rence rangeRandom Glucose Reference Range is dependent on time and content of last meal. Glucose of more than 200 mg/dL in a nonstressed, ambulatory subject supports the diagnosis of Diabetes Mellitus. Hematocrit Auto (Bld) [Volum e fraction]Ordered By: Ryan Poe on 12-18-2022 Hematocrit (Bld) [Volume fraction] 36.2 % 34.0-46.4 [facility] Hemoglobin [Mass/volume] in BloodOrdered By: Ryan Poe on 12-18-2022 Hemoglobin (Bld) [Mass/Vol] 11.9 g/dL 11.8-15.4 [facility] Leukocytes [#/volume] correc osmel for nucleated erythrocytes in Blood by Automated counOrdered By: Ryan Poe on 12-18-2022 WBC corrected for nucl RBC Auto (Bld) [#/Vol] 10.3 10*3/uL 3.8-11.6 [facility] Lipase [Enzymatic activity/v olume] in Serum or PlasmaOrdered By: Ryan Poe on 12-18-2022 Lipase [Catalytic activity/Vol] 29.0 U/L 11.0-82.0 [facility] Lymphocytes Auto (Bld) [#/Vo l]Ordered By: Ryan Poe on 12-18-2022 Lymphocytes (Bld) [#/Vol] 2.2 10*3/uL 1.00-4.8 [facility] Lymphocytes/100 WBC Auto (Bl d)Ordered By: Ryan Poe on 12-18-2022 Lymphocytes/100 WBC (Bld) 21.8 % . [facility] MCH Auto (RBC) [Entitic mass ]Ordered By: Ryan Poe on 12-18-2022 MCH (RBC) [Entitic mass] 26.9 pg 24.7-34.3 [facility] MCHC Auto (RBC) [Mass/Vol]Or dered By: Ryan Poe on 12-18-2022 MCHC (RBC) [Mass/Vol] 32.8 g/dL 32.0-35.0 [facility] MCV Auto (RBC) [Entitic vol] Ordered By: Ryan Poe on 12-18-2022 MCV (RBC) [Entitic vol] 82.1 fL 80-100 [facility] Monocyte distribution width [Entitic volume] in Blood by AutomatedOrdered By: Ryan Poe on 12-18-2022 Monocyte distribution width Auto (Bld) [Entitic vol] 22.19 % 0.00-20.00 [facility] Comment on above: For adults in ED, MD W > 20.0 may be associated with a higher risk of sepsis during the first 12 hrs of hospital admission Monocytes Auto (Bld) [#/Vol] Ordered By: Ryan Poe on 12-18-2022 Monocytes (Bld) [#/Vol] 0.8 10*3/uL 0.0-0.8 [facility] Monocytes/100 WBC Auto (Bld) Ordered By: Ryan oPe on 12-18-2022 Monocytes/100 WBC (Bld) 7.4 % . [facility] Neutrophils Auto (Bld) [#/Vo l]Ordered By: Ryan Poe on 12-18-2022 Neutrophils (Bld) [#/Vol] 7.2 10*3/uL 1.8-7.7 [facility] Neutrophils/100 WBC Auto (Bl d)Ordered By: Ryan Poe on 12-18-2022 Neutrophils/100 WBC (Bld) 69.9 % . [facility] No Panel InformationOrdered By: Ryan Poe on 12-18-2022 Estimated GFR (CKD-EPI) > 60.0 mL/Min [facility] Creatinine Clearance (Chem 98.76 [facility] Nucleated erythrocytes [Pres ence] in Blood by Automated countOrdered By: Ryan Poe on 12-18-2022 Nucleated RBC Auto Ql (Bld) 0.1 /100{WBC} 0-0.5 [facility] Platelet mean volume Auto (B ld) [Entitic vol]Ordered By: Ryan Poe on 12-18-2022 Platelet mean volume (Bld) [Entitic vol] 8.1 fL 6.3-10.7 [facility] Platelets Auto (Bld) [#/Vol] Ordered By: Ryan Poe on 12-18-2022 Platelets (Bld) [#/Vol] 223 10*3/uL 150-450 [facility] Potassium [Moles/volume] in Serum or PlasmaOrdered By: Ryan Poe on 12-18-2022 Potassium [Moles/Vol] 3.5 mmol/L 3.5-5.1 [facility] RBC Auto (Bld) [#/Vol]Ordere d By: Ryan Poe on 12-18-2022 RBC (Bld) [#/Vol] 4.42 10*6/uL 3.60-5.00 [facility] Serum or plasma anion gap de terminationOrdered By: Ryan Poe on 12-18-2022 Anion gap [Moles/Vol] 14.5 mmol/L 6.0-15.0 [facility] Sodium [Moles/volume] in Ser um or PlasmaOrdered By: Ryan Poe on 12-18-2022 Sodium [Moles/Vol] 136 mmol/L 136-145 [facility] Urea nitrogen [Mass/volume] in Serum or PlasmaOrdered By: Ryan Poe on 12-18-2022 Urea nitrogen [Mass/Vol] 21 mg/dL 7-25 [facility] WBC Auto (Bld) [#/Vol]Ordere d By: Ryan Poe on 12-18-2022 WBC (Bld) [#/Vol] 10.3 10*3/uL 3.8-11.6 [facility] PRBC LEUKOREDUCEDon 07-14-19 23 ABO and Rh group Nom (Bld) Cross Match Result Compatible Unit Blood Type A Pos Unit Number [id number] Status Information Released Specimen Exp Date Product ID Red Blood Cells Product Code [id number] Cross Match Result Compatible Unit Blood Type A Pos Unit Number [id number] Status Information Transfused Product ID Red Blood Cells Product Code [id number] Normal [facility] Comment on above: Performed By: #### R UBIGG #### [facility] [address] [place] [address] Dr. Juan Antonio Ibarra CBC AUTO DIFFon 07-07-2022 BASO # 0.0 103/ul Normal 0.0-0.1 [facility] Comment on above: Performed By: #### A 1C #### [facility] [address] [place] [address] Dr. Juan Antonio Ibarra Basophils/100 WBC (Bld) 0.3 % Normal 0.2-2.0 [facility] Comment on above: Performed By: #### A 1C #### [facility] [address] [place] [address] Dr. Juan Antonio Ibarra EO # 0.1 103/ul Normal 0.0-0.7 [facility] Comment on above: Performed By: #### A 1C #### [facility] [address] [place] [address] Dr. Juan Antonio Ibarra Eosinophils/100 WBC (Bld) 0.9 % Normal 0.9-7.0 [facility] Comment on above: Performed By: #### A 1C #### [facility] [address] [place] [address] Dr. Juan Antonio Ibarra Erythrocyte distribution width (RBC) [Ratio] 14.5 % Normal 11.0-15.0 [facility] Comment on above: Performed By: #### A 1C #### [facility] [address] [place] [address] Dr. Juan Antonio Ibarra Hematocrit (Bld) [Volume fraction] 22.5 % Critically low 36.0-48.0 [facility] Comment on above: Performed By: #### A 1C #### [facility] [address] [address] [address] Juan Antonio Ibarra Hemoglobin (Bld) [Mass/Vol] 7.9 g/dL Critically low 12.0-16.0 [facility] Comment on above: Performed By: #### A 1C #### [facility] [address] [place] [address] Dr. Juan Antonio Ibarra IG # 0.10 10e3/ul Critically high 0.00-0.03 [facility] Comment on above: Performed By: #### A 1C #### [facility] [address] [place] [address] Dr. Juan Antonio Ibarra IG % 0.9 % Critically high 0.0-0.5 [facility] Comment on above: Performed By: #### A 1C #### [facility] [address] [place] [address] Dr. Juan Antonio Ibarra LYMPH # 1.6 103/ul Normal 1.2-3.8 [facility] Comment on above: Performed By: #### A 1C #### [facility] [address] [place] [address] Dr. Juan Antonio Ibarra Lymphocytes/100 WBC (Bld) 14.0 % Critically low 20.5-60.0 [facility] Comment on above: Performed By: #### A 1C #### [facility] [address] [place] [address] Dr. Juan Antonio Ibarra MANUAL DIFF REQ NO Normal [facility] Comment on above: Performed By: #### A 1C #### [facility] [address] [place] [address] Dr. Juan Antonio Ibarra MCH (RBC) [Entitic mass] 26.4 pg Critically low 26.7-34.0 [facility] Comment on above: Performed By: #### A 1C #### [facility] [address] [place] [address] Dr. Juan Antonio Ibarra MCHC (RBC) [Mass/Vol] 35.1 g/dL Normal 29.9-35.2 [facility] Comment on above: Performed By: #### A 1C #### [facility] [address] [place] [address] Dr. Juan Antonio Ibarra MCV (RBC) [Entitic vol] 75.3 fL Critically low 81.0-99.0 [facility] Comment on above: Performed By: #### A 1C #### [facility] [address] [place] [address] Dr. Juan Antonio Ibarra MONO # 0.7 103/ul Normal 0.3-0.8 [facility] Comment on above: Performed By: #### A 1C #### [facility] [address] [place] [address] Dr. Juan Antonio Ibarra Monocytes/100 WBC (Bld) 6.2 % Normal 1.7-12.0 [facility] Comment on above: Performed By: #### A 1C #### [facility] [address] [place] [address] Dr. Juan Antonio Ibarra NEUT # 9.1 103/ul Critically high 1.4-6.5 [facility] Comment on above: Performed By: #### A 1C #### [facility] [address] [place] [address] Dr. Juan Antonio Ibarra Neutrophils/100 WBC (Bld) 77.7 % Critically high 43.0-75.0 [facility] Comment on above: Performed By: #### A 1C #### [facility] [address] [place] [address] Dr. Juan Antonio Ibarra Platelet mean volume (Bld) [Entitic vol] 9.2 fL Critically low 9.5-13.5 [facility] Comment on above: Performed By: #### A 1C #### [facility] [address] [place] [address] Dr. Juan Antonio Ibarra PLT 143 103/ul Critically low 150-450 [facility] Comment on above: Performed By: #### A 1C #### [facility] [address] [place] [address] Dr. Juan Antonio Ibarra RBC 2.99 106/ul Critically low 4.20-5.40 [facility] Comment on above: Performed By: #### A 1C #### [facility] [address] [place] [address] Dr. Juan Antonio Ibarra WBC 11.7 103/ul Critically high 4.0-11.0 [facility] Comment on above: Performed By: #### A 1C #### [facility] [address] [place] [address] Dr. Juan Antonio Ibarra CBC AUTO DIFFon 07-06-2022 BASO # 0.0 103/ul Normal 0.0-0.1 [facility] Comment on above: Performed By: #### A 1C #### [facility] [address] [place] [address] Dr. Juan Antonio Ibarra Basophils/100 WBC (Bld) 0.3 % Normal 0.2-2.0 [facility] Comment on above: Performed By: #### A 1C #### [facility] [address] [place] [address] Dr. Juan Antonio Ibarra EO # 0.1 103/ul Normal 0.0-0.7 [facility] Comment on above: Performed By: #### A 1C #### [facility] [address] [place] [address] Dr. Juan Antonio Ibarra Eosinophils/100 WBC (Bld) 0.8 % Critically low 0.9-7.0 [facility] Comment on above: Performed By: #### A 1C #### [facility] [address] [place] [address] Dr. Juan Antonio Ibarra Erythrocyte distribution width (RBC) [Ratio] 14.3 % Normal 11.0-15.0 [facility] Comment on above: Performed By: #### A 1C #### [facility] [address] [place] [address] Dr. Juan Antonio Ibarra Hematocrit (Bld) [Volume fraction] 23.0 % Critically low 36.0-48.0 [facility] Comment on above: Performed By: #### A 1C #### [facility] [address] [place] [address] Dr. Juan Antonio Ibarra Hemoglobin (Bld) [Mass/Vol] 7.5 g/dL Critically low 12.0-16.0 [facility] Comment on above: Performed By: #### A 1C #### [facility] [address] [place] [address] Dr. Juan Antonio Ibarra IG # 0.07 10e3/ul Critically high 0.00-0.03 [facility] Comment on above: Performed By: #### A 1C #### [facility] [address] [place] [address] Dr. Juan Antonio Ibarra IG % 0.6 % Critically high 0.0-0.5 [facility] Comment on above: Performed By: #### A 1C #### [facility] [address] [place] [address] Dr. Juan Antonio Ibarra LYMPH # 2.1 103/ul Normal 1.2-3.8 [facility] Comment on above: Performed By: #### A 1C #### [facility] [address] [place] [address] Dr. Juan Antonio Ibarra Lymphocytes/100 WBC (Bld) 18.8 % Critically low 20.5-60.0 [facility] Comment on above: Performed By: #### A 1C #### [facility] [address] [place] [address] Dr. Juan Antonio Ibarra MANUAL DIFF REQ NO Normal [facility] Comment on above: Performed By: #### A 1C #### [facility] [address] [place] [address] Dr. Juan Antonio Ibarra MCH (RBC) [Entitic mass] 26.0 pg Critically low 26.7-34.0 [facility] Comment on above: Performed By: #### A 1C #### [facility] [address] [place] [address] Dr. Juan Antonio Ibarra MCHC (RBC) [Mass/Vol] 32.6 g/dL Normal 29.9-35.2 [facility] Comment on above: Performed By: #### A 1C #### [facility] [address] [place] [address] Dr. Juan Antonio Ibarra MCV (RBC) [Entitic vol] 79.9 fL Critically low 81.0-99.0 [facility] Comment on above: Performed By: #### A 1C #### [facility] [facility] [address] [place] [address] Dr. Juan Antonio Ibarra MONO # 0.7 103/ul Normal 0.3-0.8 [facility] Comment on above: Performed By: #### A 1C #### [facility] [address] [place] [address] Dr. Juan Antonio Ibarra Monocytes/100 WBC (Bld) 6.6 % Normal 1.7-12.0 [facility] Comment on above: Performed By: #### A 1C #### [facility] [address] [place] [address] Dr. Juan Antonio Ibarra NEUT # 8.2 103/ul Critically high 1.4-6.5 [facility] Comment on above: Performed By: #### A 1C #### [facility] [address] [place] [address] Dr. Juan Antonio Ibarra Neutrophils/100 WBC (Bld) 72.9 % Normal 43.0-75.0 [facility] Comment on above: Performed By: #### A 1C #### [facility] [address] [place] [address] Dr. Juan Antonio Ibarra Platelet mean volume (Bld) [Entitic vol] 9.8 fL Normal 9.5-13.5 [facility] Comment on above: Performed By: #### A 1C #### [facility] [address] [place] [address] Dr. Juan Antonio Ibarra PLT 151 103/ul Normal 150-450 [facility] Comment on above: Performed By: #### A 1C #### [facility] [address] [place] [address] Dr. Juan Antonio Ibarra RBC 2.88 106/ul Critically low 4.20-5.40 [facility] Comment on above: Performed By: #### A 1C #### [facility] [address] [place] [address] Dr. Juan Antonio Ibarra WBC 11.3 103/ul Critically high 4.0-11.0 [facility] Comment on above: Performed By: #### A 1C #### [facility] [address] [place] [address] Dr. Juan Antonio Ibarra CBC AUTO DIFFon 07-05-2022 BASO # 0.0 103/ul Normal 0.0-0.1 [facility] Comment on above: Performed By: #### R PRQ #### [facility] [address] [place] [address] Dr. Juan Antonio Ibarra Basophils/100 WBC (Bld) 0.2 % Normal 0.2-2.0 [facility] Comment on above: Performed By: #### R PRQ #### [facility] [address] [place] [address] Dr. Juan Antonio Ibarra EO # 0.0 103/ul Normal 0.0-0.7 [facility] Comment on above: Performed By: #### R PRQ #### [facility] [address] [place] [address] Dr. Juan Antonio Ibarra Eosinophils/100 WBC (Bld) 0.4 % Critically low 0.9-7.0 [facility] Comment on above: Performed By: #### R PRQ #### [facility] [address] [place] [address] Dr. Juan Antonio Ibarra Erythrocyte distribution width (RBC) [Ratio] 14.2 % Normal 11.0-15.0 [facility] Comment on above: Performed By: #### R PRQ #### [facility] [address] [place] [address] Dr. Juan Antonio Ibarra Hematocrit (Bld) [Volume fraction] 31.0 % Critically low 36.0-48.0 [facility] Comment on above: Performed By: #### R PRQ #### [facility] [address] [place] [address] Dr. Juan Antonio Ibarra Hemoglobin (Bld) [Mass/Vol] 10.1 g/dL Critically low 12.0-16.0 [facility] Comment on above: Performed By: #### R PRQ #### [facility] [address] [place] [address] Dr. Juan Antonio Ibarra IG # 0.10 10e3/ul Critically high 0.00-0.03 [facility] Comment on above: Performed By: #### R PRQ #### [facility] [address] [place] [address] Dr. Juan Antonio Ibarar IG % 1.1 % Critically high 0.0-0.5 [facility] Comment on above: Performed By: #### R PRQ #### [facility] [address] [place] [address] Dr. Juan Antonio Ibarra LYMPH # 1.6 103/ul Normal 1.2-3.8 [facility] Comment on above: Performed By: #### R PRQ #### [facility] [address] [place] [address] Dr. Jaun Antonio Ibarra Lymphocytes/100 WBC (Bld) 17.5 % Critically low 20.5-60.0 [facility] Comment on above: Performed By: #### R PRQ #### [facility] [address] [place] [address] Dr. Juan Antonio Ibarra MANUAL DIFF REQ NO Normal [facility] Comment on above: Performed By: #### R PRQ #### [facility] [address] [place] [address] Dr. Juan Antonio Ibarra MCH (RBC) [Entitic mass] 25.8 pg Critically low 26.7-34.0 [facility] Comment on above: Performed By: #### R PRQ #### [facility] [address] [place] [address] Dr. Juan Antonio Ibarra MCHC (RBC) [Mass/Vol] 32.6 g/dL Normal 29.9-35.2 [facility] Comment on above: Performed By: #### R PRQ #### [facility] [address] [place] [address] Dr. Juan Antonio Ibarra MCV (RBC) [Entitic vol] 79.3 fL Critically low 81.0-99.0 [facility] Comment on above: Performed By: #### R PRQ #### [facility] [address] [place] [address] Dr. Juan Antonio Ibarra MONO # 0.7 103/ul Normal 0.3-0.8 [facility] Comment on above: Performed By: #### R PRQ #### [facility] [address] [place] [address] Dr. Juan Antonio Ibarra Monocytes/100 WBC (Bld) 8.1 % Normal 1.7-12.0 [facility] Comment on above: Performed By: #### R PRQ #### [facility] [address] [place] [address] Dr. Juan Antonio Ibarra NEUT # 6.7 103/ul Critically high 1.4-6.5 [facility] Comment on above: Performed By: #### R PRQ #### [facility] [address] [place] [address] Dr. Juan Antonio Ibarra Neutrophils/100 WBC (Bld) 72.7 % Normal 43.0-75.0 [facility] Comment on above: Performed By: #### R PRQ #### [facility] [address] [place] [address] Dr. Juan Antonio Ibarra Platelet mean volume (Bld) [Entitic vol] 10.1 fL Normal 9.5-13.5 [facility] Comment on above: Performed By: #### R PRQ #### [facility] [address] [place] [address] Dr. Juan Antonio Ibarra PLT 202 103/ul Normal 150-450 [facility] Comment on above: Performed By: #### R PRQ #### [facility] [address] [place] [address] Dr. Juan Antonio Ibarra RBC 3.91 106/ul Critically low 4.20-5.40 [facility] Comment on above: Performed By: #### R PRQ #### [facility] [address] [place] [address] Dr. Juan Antonio Ibarra WBC 9.2 103/ul Normal 4.0-11.0 [facility] Comment on above: Performed By: #### R PRQ #### [facility] [address] [place] [address] Dr. Juan Antonio Ibarra DRUG SCREEN RAPID (URINE)on 07-05-2022 AMP Negative Normal NEGATIVE [facility] Comment on above: Performed By: #### A 1C #### [facility] [address] [place] [address] Dr. Juan Antonio Ibarra BAR Negative Normal NEGATIVE [facility] Comment on above: Performed By: #### A 1C #### [facility] [address] [place] [address] Dr. Juan Antonio Ibarra BUP Negative Normal NEGATIVE [facility] Comment on above: Performed By: #### A 1C #### [facility] [address] [place] [address] Dr. Juan Antonio Ibarra BZO Negative Normal NEGATIVE [facility] Comment on above: Performed By: #### A 1C #### [facility] [address] [place] [address] Dr. Juan Antonio Ibarra PARAM Negative Normal NEGATIVE [facility] Comment on above: Performed By: #### A 1C #### [facility] [address] [place] [address] Dr. Juan Antonio Ibarra CUT-OFFS SEE BELOW Normal [facility] Comment on above: Result Comment: AMP [...] ng/mL Performed By: #### A 1C #### [facility] [address] [place] [address] Dr. Juan Antonio Ibarra DRUG CUT HEADER DRUG CLASS TEST SYST EM CUT-OFF CONCENTRATIONS ARE FOLLOWS: Normal [facility] Comment on above: Performed By: #### A 1C #### [facility] [address] [place] [address] Dr. Juan Antonio Ibarra mAMP Negative Normal NEGATIVE [facility] Comment on above: Performed By: #### A 1C #### [facility] [address] [place] [address] Dr. Juan Antonio Ibarra MTD Negative Normal NEGATIVE [facility] Comment on above: Performed By: #### A 1C #### [facility] [address] [place] [address] Dr. Juan Antonio Ibarra OPI Negative Normal NEGATIVE [facility] Comment on above: Performed By: #### A 1C #### [facility] [address] [place] [address] Dr. Juan Antonio Ibarra OXY Negative Normal NEGATIVE [facility] Comment on above: Performed By: #### A 1C #### [facility] [address] [place] [address] Dr. Juan Antonio Ibarra PCP Negative Normal NEGATIVE [facility] Comment on above: Performed By: #### A 1C #### [facility] [address] [place] [address] Dr. Juan Antonio Ibarra PPX Negative Normal NEGATIVE [facility] Comment on above: Performed By: #### A 1C #### [facility] [address] [place] [address] Dr. Juan Antonio Ibarra TCA Negative Normal NEGATIVE [facility] Comment on above: Performed By: #### A 1C #### [facility] [address] [place] [address] Dr. Juan Antonio Ibarra THC Negative Normal NEGATIVE [facility] Comment on above: Performed By: #### A 1C #### [facility] [address] [place] [address] Dr. Juan Antonio Ibarra TYPE AND SCREENon 07-05-2022 TYPE AND SCREEN Negative Normal [facility] Comment on above: Performed By: #### T NS #### [facility] [address] [place] [address] Dr. Juan Antonio Ibarra US PREG BIOPHY [...] by: FELECIA GOLDMAN Date: 2022-06-28 15:29 Normal [facility] US PREG BIOPHY W NON STRESSo [...] by: FELECIA GOLDMAN Date: 2022-06-21 17:20 Normal [facility] US PREG GROWTHon 06-21-2022 US PREG [...] Normal interval growth Electronically authenticated by: GAMALIEL MARTEL Date: 2022-06-21 13:37 Normal [facility] CULTURE URINEon 06-16-2022 CULTURE URINE Culture Observations : LIGHT GROWTH OF MIXED GENITAL ALONSO. NO POTENTIAL PATHOGENS SEEN. Normal [facility] Comment on above: Performed By: #### U RCX #### [facility] [address] [address] [address] Juan Antonio Ibarra UA (CLEAN/CATCH) INSTRUCTOR TECHNICAL TRAINING/MICRO I F IND.on 06-16-2022 Bilirubin Ql (U) Negative Normal NEGATIVE [facility] Comment on above: Performed By: #### U MICRO, UACSIND #### [facility] [address] [place] [address] Dr. Juan Antonio Ibarra Clarity (U) CLEAR Normal CLEAR [facility] Comment on above: Performed By: #### U MICRO, UACSIND #### [facility] [address] [address] [address] Juan Antonio Ibarra Color (U) LT. YELLOW Normal YELLOW [facility] Comment on above: Performed By: #### U MICRO, UACSIND #### [facility] [address] [place] [address] Dr. Juan Antonio Ibarra Glucose Ql (U) Negative Normal NEGATIVE [facility] Comment on above: Performed By: #### U MICRO, UACSIND #### [facility] [address] [place] [address] Dr. Juan Antonio Ibarra Hemoglobin Ql (U) Negative Normal NEGATIVE [facility] Comment on above: Performed By: #### U MICRO, UACSIND #### [facility] [address] [place] [address] Dr. Juan Antonio Ibarra Ketones Ql (U) Negative Normal NEGATIVE [facility] Comment on above: Performed By: #### U MICRO, UACSIND #### [facility] [address] [address] [address] Juan Antonio Ibarra LEUKOCYTES MODERATE Abnormal NEGATIVE [facility] Comment on above: Performed By: #### U MICRO, UACSIND #### [facility] [address] [address] [address] Juan Antonio Ibarra Nitrite Ql (U) Negative Normal NEGATIVE [facility] Comment on above: Performed By: #### U MICRO, UACSIND #### [facility] [address] [place] [address] Dr. Juan Antonio Ibarra pH (U) 6.0 [pH] Normal 5-9 [facility] Comment on above: Performed By: #### U MICRO, UACSIND #### [facility] [address] [address] [address] Juan Antonio Ibarra SPEC GRAVITY 1.020 Normal 1.005-<=1. 025 [facility] Comment on above: Performed By: #### U MICRO, UACSIND #### [facility] [address] [address] [address] Juan Antonio Ibarra UA PROTEIN Negative Normal NEGATIVE/ TRACE [facility] Comment on above: Performed By: #### U MICRO, UACSIND #### [facility] [address] [address] [address] Juan Antonio Ibarra UR MICRO IND INDICATED Normal [facility] Comment on above: Performed By: #### U MICRO, UACSIND #### [facility] [address] [place] [address] Dr. Juan Antonio Ibarra Urobilinogen Qn (U) 1.0 {Pamela'U}/dL Normal 0.2 - 1. 0 [facility] Comment on above: Performed By: #### U MICRO, UACSIND #### [facility] [address] [place] [address] Dr. Juan Antonio Ibarra URINE MICROSCOPIC ONLYon BACTERIA SMALL Abnormal NONE SEEN [facility] Comment on above: Performed By: #### U MICRO, UACSIND #### [facility] [address] [place] [address] Dr. Juan Antonio Ibarra Bacteria identified Cx Nom (U) INDICATED Normal [facility] Comment on above: Performed By: #### U MICRO, UACSIND #### [facility] [address] [place] [address] Dr. Juan Antonio Ibarra CAST NONE SEEN Normal NONE SEEN [facility] Comment on above: Performed By: #### U MICRO, UACSIND #### [facility] [address] [place] [address] Dr. Juan Antonio Ibarra Crystals LM Nom (Urine sed) NONE SEEN Normal NONE SEEN [facility] Comment on above: Performed By: #### U MICRO, UACSIND #### [facility] [address] [place] [address] Dr. Juan Antonio Ibarra Epithelial cells LM Ql (Urine sed) RARE Normal NONE SEEN /RARE [facility] Comment on above: Performed By: #### U MICRO, UACSIND #### [facility] [address] [place] [address] Dr. Juan Antonio Ibarra MUCOUS NONE SEEN Normal NONE SEEN [facility] Comment on above: Performed By: #### U MICRO, UACSIND #### [facility] [address] [place] [address] Dr. Juan Antonio Ibarra RBC NONE SEEN Abnormal 0-2 [facility] Comment on above: Performed By: #### U MICRO, UACSIND #### [facility] [address] [place] [address] Dr. Juan Antonio Ibarra WBC 2-5 Abnormal NONE SEEN [facility] Comment on above: Performed By: #### U MICRO, UACSIND #### [facility] [address] [place] [address] Dr. Juan Antonio Ibarra GROUP B STREP CULTUREon 05-18 S. agalactiae Ag Ql (Unsp spec) Culture Observations: NEGATIVE FOR GROUP B STREPTOCOCCUS. Normal [facility] Comment on above: Performed By: #### G BSCX #### [facility] [address] [place] [address] Dr. Juan Antonio Ibarra US PREG BIOPHY [...] percentile 7.7 cm Electronically authenticated by: GAMALIEL MARTEL Date: 2022-06-14 16:10 Normal [facility] US PREG BIOPHY W NON STRESSo [...] by: FELECIA GOLDMAN Date: 2022-06-07 16:42 Normal [facility] US PREG BIOPHY W NON STRESSo [...] by: FELECIA GOLDMAN Date: 2022-06-04 17:11 Normal [facility] US PREG BIOPHY W NON STRESS [...] by: FELECIA GOLDMAN Date: 2022-06-04 16:23 Normal [facility] US PREG BIOPHY W NON STRESSo [...] profile score: 8.0 Electronically authenticated by: GAMALIEL MARTEL Date: 2022-05-31 18:39 Normal [facility] US PREG BIOPHY W NON STRESSo [...] by: FELECIA GOLDMAN Date: 2022-05-24 16:34 Normal [facility] US PREG GROWTHon 05-24-2022 US PREG [...] FELECIA GOLDMAN Date: 2022-05-24 16:33 Normal [facility] GLUCOSE - 1HRon 04-04-2022 Glucose [Mass/Vol] 101 mg/dL Normal 74-106 [facility] Comment on above: Performed By: #### R PRQ #### [facility] [address] [place] [address] Dr. Juan Antonio Ibarra HEMOGRAM AND PLATELon 2021 Hematocrit (Bld) [Volume fraction] 33.5 % Critically low 36.0-48.0 [facility] Comment on above: Performed By: #### A 1C #### [facility] [address] [place] [address] Dr. Juan Antonio Ibarra Hemoglobin (Bld) [Mass/Vol] 10.7 g/dL Critically low 12.0-16.0 [facility] Comment on above: Performed By: #### A 1C #### [facility] [address] [place] [address] Dr. Juan Antonio Ibarra MCH (RBC) [Entitic mass] 29.3 pg Normal 26.7-34.0 [facility] Comment on above: Performed By: #### A 1C #### [facility] [address] [place] [address] Dr. Juan Antonio Ibarra MCHC (RBC) [Mass/Vol] 31.9 g/dL Normal 29.9-35.2 [facility] Comment on above: Performed By: #### A 1C #### [facility] [address] [place] [address] Dr. Juan Antonio Ibarra MCV (RBC) [Entitic vol] 91.8 fL Normal 81.0-99.0 [facility] Comment on above: Performed By: #### A 1C #### [facility] [address] [place] [address] Dr. Juan Antonio Ibarra PLT 179 103/ul Normal 150-450 [facility] Comment on above: Performed By: #### A 1C #### [facility] [address] [place] [address] Dr. Juan Antonio Ibarra RBC 3.65 106/ul Critically low 4.20-5.40 [facility] Comment on above: Performed By: #### A 1C #### [facility] [address] [place], [place] [address] Dr. Juan Antonio Ibarra WBC 9.9 103/ul Normal 4.0-11.0 [facility] Comment on above: Performed By: #### A 1C #### [facility] [address] [place], [place] [address] Dr. Juan Antonio Ibarra US PREG REEVAL [...] FELECIA GOLDMAN Date: 2022-03-20 20:55 Normal [facility] US PREG ANATOMY SINGLEon US PREG [...] FELECIA GOLDMAN Date: 2022-02-22 16:46 Normal [facility] Coding Summaryon 02-14-2022 Coding Summary HTMLBase 64 QajjhkbwTXd3yVd+PGhlYWQ+PE 8NUGBmQ41fcHPldH4BP2bGFJ0V VMHQYNHUPL5VTD5aeKR9JUfvQ4 VybiAv ObjweFAbXT24EGd7HEM0mVrtOI wlgI1xdYWmG5l1AbQfFS87mG75 VMzoVHBqDdP7YcLyzbwqiSFs X0qoGsFgcZVeQgw+PHRhYmxlIH hkKNCcICoqIHXaVtUfcKlgCS5s Mt5pZFFhMVMozWynuXMwQwMf y2quQPPrXEjmRH4toMtkJ4TukI N6VNCrf8v6Bi67rDC+PHRkIHN0 eJxsQXgji223OtXmd0rmUGV9 tEIcWHjgOEU5Z63or2C1QDWaKM TmQJU6sVD1qS4meXrxsgtbB6Xr fOKjTgV1TFF2qXMymP6tsPtp bmvomM1lZdi+C74CVS1PALSSAD 5DJzn5J1WlFtmbjKW+GO10GACz RB74jVUezCEns9xmhYp9HcDj QUHqUAB4tArgQQyfs2FoZKOtJ2 2laYZnv7G9QYHjyBbrrZKgEmZf hOH9xN0dQKbglglda7wdueux Vnlyc7hljv17oZ68F76yZZpbIG NdMQZ6XKCiJYWpaIpkkh6ibY7v Ii8+SDjxf0ual8xabNu5ZpIx BZKpboQfkLifUAA2v2EdUt35D6 PleKcqs5ZxIse8tu77ySEzm0U7 kWC1KKuxIWHhbC0sWPkdYkI1 CZIrRuOofA76eVObZSpnLk6mtG eyjSdsVA7qCSEtfekiWFZioW4i FPFrsBTswSxuMN3sXHNwldjo l400YzCaQBU8AMBxjOUmP5QicH 0iEjZeOLBaNQOuO2OxgHKnQFwr V598ZAofHpH9DBVvfkHtK0Rb ZGHzxDfnGkO9m4S9Xe3Zp8Jjnk fgERY5VUohXOK6LnLiZsXhPgD9 Q1DpCtl2KVNphXidMS1tX5Wb JNLhjowzugdpoMO8TJNcVJVffF 36iRAbGKioYj9hd2Z5j181NBJq NSQpmZ38Tb9vxPbbDWQyxNAY gT6szfylu3xumguzXeCaDLEcZF c6ZVx4HMGduXzlPqWhJTA4UfO6 TZP9oNRxqL7doUinlliizT9o Oyc+A53vgW1vDES4VJA2bzrfEB SlnsJoBG62PK66D1HtImmpdPIj bGU+HFAykrLuvKxyUQ3rJqKs f5yms9FjAGmbT6DyVCGaUXzqRd i6AHLuDBJ6lBU9tJ2mHNRrHXru x1J4zGZ5S9QvhsYyeo2zf4th RVWkIZqkQ80iaMDnw8G2VIMkgC M5BVNzxNhiYxDvrS68Sqw+PGNv uQgcc6XvKlwgr0dhv4aqdDz8 AcUkBCUcpxSrzQqdLLH5n0JtMn 45W73uTSmiRZBeZENkNKWdMWGl rRfvjm7tdI0rIt5+PGNvbCB3 iQR3xB2rNUPgMnE2XZmwE309Kl HpvBEsYrybz5ztd5abaLe5EyAr XZZoevInkLlvQDG0w0KwCt06 N42kJIvrFNYeXAZkLEMvUNGjmC tzej4diX9xTl9+JT3ma3none70 dD36tUB+SEIcSZS4uXknORfs QLXttX4aUJxuNxO1JQDaPwRomE 65pJSrGOjaHl5ayLwpbIrzJX5a VEYhaggju260HxXtz5dqPJHe wIVfXEfvSLE0V94yi7C8AVSqNI JvEGF0zHC3pN3jaGhjwnvvfWMp nJtwmcEewDmzBPsqJEwuE020 IHRvcDsnPlBhdGllbnQgTmFtZT o4K3HpVgu5GHOfnMsrBM6azXSj EVatXp6coVkkjEtvOP5kJFHf zvwpv056SbHrr8vsNFFjpGMnHB htHIK1C23fz3X0AQOcZPHnHST2 iKJ6uF7fnOqzrylrnVPhzIpq bcGiiMfgKGssDAadI025TKQpcR xrMwIzdsKoBWBgrRP2NB52BO58 yJFvi8L5kSA0B8VbNFRzdqcg ehwmcJS3EAXoSLUhlJ57Bt6kfC naIv7xBTFeYFY8XRWolBPoB7Dr wY4lNfYsLCXtXIJxD3CnbFPc GQdrA151ZGycUrV5UBOoeiEbG8 BjETImdVbqLpE6w2X7Zd0SZ1B8 EN38ON18eLCar2Q2uQH5G0Eg GKVfafgmsxqpgDN9NPDfEKFhxR 51Lg9kcQciPe2bKNBjXXZ0JQHa pOCnJ7UqiA3iQuYzDTZcUPDe E7UhzSPfBLygL046FOtnSxI5BD AmiiIrG2VzBYImnTyuDhQ9h6I7 Aj8CUAi6CJ38QO75yJUza6J0 uFK0E8CfEMBborwspttmxVB6VR UxBXAsaO88Fk2lnMivKl9wXIFx ERE6GKIzuACcB5HbeI0hKiSa GPDkNVVuF8ClcTJtZSauQ947EE nhEdD0XGFmfyGbA9GkEZKtcTzx XkS9o9C5Yw0NZXYhPQ96ZQY1 tNZ7UI16IW76U3FmIhyzyWTztP U+PHRhYmxlIHdpZHRoPScxMDAl IpIojPxqHC0fXo0fLNAaPWTb tZsciHFxEtVgu5bfTEYdRAwqYR 5naHdbB5EzySC4SYCfs4i9Zp32 O44pX5WpmOB+KMYcvSQ6sHP9 fQ7fVwNzOjQ2KRcwP127YeZwyD AoXdafu3ues8ebyFk5JtB6YJIa ibTdfBnwLHJ4l0MgAe64R51p IHdpZHRoPSIxNSUiIHZhbGlnbj 6tbW1fMg0+LXBsvZF4nRY4oP6a CnOpLeY3VXfdY931SdCwjPDx Vdbsr7pbl2zoyRu3CfRcFQSnmb BavAaqOIM6z7XpPw26A6DfaGvo o6NqQpt0qo85eMSlz4U1dWG7 B2ZsTHTixvslpLLumKdlCD1mZK RxzlpuSXMkwP4bJPDkX8k0HoZl OjS6PHzkV9HeujA7VBCyiMSh HIpdZZY5D05jk9V8ZVNjSKWlGX O8gWO5oQ3imKijnsyyoNBbsKbz tnRmvEyrLQmdIDdvG254KBIf sSmzBONcvJ9rAUAtlQDtzTzhGM 4wNTBpbjsnPlNURUlOLCBWSVJH HH8OURSNYGP6E0RrFtv7EITv wAolOM0xhTVbUImjJq3aiNlrbM tmEK9rCDCkfwbzIEQosX0tWTBo kXMedNqhMW8pCZIymzomz649 CjUoNGD0ZMMcyCRbJ6DlwG9xKx MqATZqSEAjA7SueGQiLZwtL216 GNruFxG5BBEmtzAeY2JqWMFp sJboWoU2g6U9Re3hNX4bEN4gKS lnGD04UR06gFJdv4O2fGH8R5We PMQhidyptvkgnEX2EQKuGJHf hS01dXKyZOwmYq8gy3D2p573EO IbFIZncM57Sf5vdSkmTNZjwQXB rO0pyqnsa0nqwszuFtOtWZFj ISn2FQc4WLGsmNfbDeQoGHS1Op S8BGM0hPKysW7nqPljqhzynI2o Oyc+VnwaZQYphtD3Y9KsKig5 ZUGrbMxuOS2dtDWqPPmcIz5nfM xffKuhXP5rWBEtnchvCGYeuW9q NBTmxEBxoUmfNN4cLWTyfgmu d517DoFlMKU6XJWqoEDvT4KzbV 8dTsOtAGOvKZIeS1RfyZDwCNvl F977FFxbGkE4QWUzrtFtB0Op HUQfySlfXfF5x0T7Zl9RVY9CJX Y5J3DsFvz6AHOsqSkgUJ3kbXDw QNbtXo2hcQxtdFnnQP8pYGEf xdrkTUMmuF6pDEVtqOCerMmbRB 7dQVTxnlbki936CeZbAOG2HGEf nJJoB6BcmV6gCgVfRADbHSJk Q0KyqXHiZXzfQ362GEcsYhJ7IA VmdnFjG3RxDJSweOnbBhY1i9G8 Gl3LQEwusXB+HK32xf43U6Uh FivyGmg9ZCZoVDW7fXS9eN4lIU ShGGghf7H2wVV4Z9MtbbIsek7t c5fyUOIdTJdmR05seQOln4M6 BZWgnBR8XGYfmQlpFpPllZ41Dn c+UTHuuTftf3QnRwulx9lxd9rp hMz7NcQlRQRejjUvkYuyNJO1 y8PoNw58F91zXUnjJNNdWMMqSG WdUNPxrXjrkx1vtI1eSi6+PGNv yPR2aBW7iH8zEqRiKfH7CKsn Q052QoXimKAoRiphi8dey6igsY g7ZsPgXCIaonQgbEdrIHN1k6Mo Fc27N5VmiUsil5ZuEkc0by33 gKLeo8G9kGV3J2GiSHNuhvoawE VdrKwrVV1uNFOldaoeMQXfmK0b YXKgJ5m6UwFpJvX9RBjeE2Od irQ7FSKgfYWxQGPnaUXBzC1nto sbs9gchataRiJaQAUuXKg6LJg9 HHOfwPgcTjHoLDD3ShS8UUZ7 wNHlkZ7rmLpzmgutzM3fWex+UG r6m6hgmUEzGN3mhVF4WH37RC17 aSVbx0Y7rZE3O3DgPHPtzuce fjfafFR2IUJiVDZonF29Pm2esS euGm5bICBjUQT3OQChhZQbK6Ft tJ2bCyWsUXQcYHSgI1IjtHYs FYsvO863ADgwGxR8UJHoxuUmI7 HjEMInsXroCfF2r5E8An7MWU70 FK71CA85vSHbg3V6mFE3F8Xy ETDnpomzlorjvPZ0WGCxHFTbjR 60Iq3fgCbpSh7eERWaXST1FPRz lIOkT2UgxP0xKyCbRFMqMTHn O9TtlKJxCZooB437PKhoDfU9HI TtdzAdZ8FaJUQfyImzNpR9b2A1 Is4AWu90XF53ZE90pQSgu3W8 fYI6W6WiWUFaocybzpruxYJ6GJ IjCAWdnO45Mb5brGehTl8wLZSi RZE9QYKljJRwA1MhtD7aKrJi NCAbYNPfF7TjeZOpOMfnS175GC arWsJ0QVYppkZpJ7AeSRAyfDno NjX7k8N9Cz9ZFJbhuvb2Z1Ct PjwvdHI+BV49UXKtGE50lJGirB Qsf1onuYp7LlYtIOAiVHF6tSdf SBdlc1YhRJAaN98fsXYkm9Y1 IGN (more content not included)... [facility] Coding Summary HTMLBase 64 AgxrypnaNAs5bKv+PGhlYWQ+PE 8HNDYkS80tsQLfzW8SI3xRUO0L HZNQNUPHMV7STT0txOQ9LAhjV2 VybiAv WjigxRBsEQ39CZt3NDU9dScwCI nbpZ7nbTRuA3m0KyTkDG12pU65 GLcgZKGfGqF7FzMpsripfLUu Q5cwVpDbdBKkAhg+PHRhYmxlIH hfWTWfKYolZCFtWrZlvZiiOX2s As8pJXRdKPWrwHcwjRNxUhNb t0fmNQQfJXapXS9dcUcnD5YjwA Q1VUYby9l4Uc13jVL+PHRkIHN0 jQdbZXpac990NvKpe4ubIVG6 kSBaYKeaVWY5S45bf0R3OAUyIO ToPDT1pJU4pZ7keFungfneB6Wf uBHaNmB7PBZ2qWHkhL7lsDuy nhulpL6fFlz+K14SGI3GNGTAJZ 9EPsl7M6CmYmnkiWT+CT69WNTf KI92bDRqzOVqi4zucLo2CxXl HHGeUYE2gDwiUEmhm3WjFLUiR8 2juUOqd9Y9HWKcmGnpdOEoDxXn vQT0eB8ePAguzpegx4nfbrix Crffs6xnyf91lN42E11zWAdcAU FfPLI8ENCdVYEqwMpaat3jiT2z Ii8+VZzqt4hdt9uvaIf6EhJd FIWnwjQhmVuoSAG0o6IoGu81V0 FvbNwwa2OjWkv8dn58uEEea3R8 xSY2SIvlQSTfbC6tKUtfJwT4 RSCtBmQypH12pPVsIWnfNd7ztL rtfZgfWU7aFJYshfqtRTHnkE1c HZOmkVBwwCorZX0tRPPwnrbz a088OfWwXHV1FVMjeRHeU9ShqE 0kEiQjYJMeXABfN1PqqIXrKEfo R357IGpeHuN7IGGddjOjO6Cs SWCqvEroCwH1m4E5Hv4Eg8Vvde kbASP2HQtzNCA8NlOiKwQhNoY6 K5GxYvo5XEGsbImhMX0wH7Yj WKUqivlvkkaabDS3WASmYEYsoF 23cSTsPNctWy2bb8Z6p693YZRe AYFqaZ42Kf8yaBksJJDnyPKC dU3ayobmc2lblxgrPqLcSFUmBG f2BXw6AFJvuQbkKyEyKFC8FtI7 DPZ8wKRstD8orHfbxpkivH8b Oyc+M93vsA0bECT9UJE3sunxBH CyppLvQN97BC19T9TqJaowzSUd bGU+IRHqrfDwdMxdLK6xVuGm c6rar4VbGArbC1ZzNZKpXTcsLj e3NAYaTBI4qSV9iR4cCRUjTCta w9O0rNR6W3UxwqZxcw3yi0ic QEYnAFswG62joDYlm0H3IYXwjC P0ZABrnLxmCcIikK46Qak+PGNv oJvbf4GmEplxo5mpy5lqeGi7 PpXqWQWswyCiwInwJPO2k7NzWt 48N14qSDbvOEViJSExTXXnZYWw mWcala8upX7wXu4+PGNvbCB3 pBH5gA6fMFJdOdI4KGqbM940Xh RjwUYfBhykf8pdt8lxlDz8EvJk FQWqvaShsVeuZUP9i8PsRz28 W41mGImvKBUoMUZbWLMiCPEvmP kcvx6ueN0fHe3+AH7gr0vwwv94 sM34aBG+PZRgLEW6lQteZMex RLVhsR5zWLiaEsF5GFUnWzXasJ 45wISzDRjyMc3dpXopuYyfSY7z PBMaxygbb920GqWtq2dyLGCv eXRnUZzrQMA6Z38cn9K4PYYmNP BdAHV9xDJ4lH8xvLtiytfnyZJg nOarqyOayJlnLDpuFFsmS930 IHRvcDsnPlBhdGllbnQgTmFtZT d0X2KcCsz3GHJydIqaMS8jzGVm IPwcFw7uvJpkkTppWI5dWGCq lvevi135PbTkw5fuUNMyySClUI bvIHO8T53ce1C9POWdRTFgXWP3 mVN0gV8goOhmyymfuBLamNrh smMyyDflJPbbDUhvX695LJBzbD iiTfAzkuMmWDVkpSM7IO26BK85 tREjk4G3uDW6L3XeKYUtvxnn fpzhxKG6QOOgKGIzzU67Bk5gcT heZs3zGZKoNHD5DXFfeYOdE0De eX9yWfMePPTfKZCqV2MlbOYq PAiwE707VCevKhV6NXXlfqGqH2 FcIQKrrHpeKcW9w1N2Lo5VN9J4 HR46DW34vQJtu3E6pGD7T7Kx YGVxrfgczdhwrVC8RTLuKHWsdC 39Jp4orKxbMq6fAVVgWIW7QLQw hNChS2JgwJ4kLzYgOHDkKVAh Q9BldIFaWWxoY714YGfzMpO5QB WoigMfG1ZiQOZshQwxFcV5o0Q2 Xy3FXUm7IB58TK24eKUkp0C5 bOT1V9TuUNSglvjpsscpsVR1HJ XzKENteB12Sm0hzRenFl5qNLEe XZZ8MPWfrEFtS8UkgK9xTrSa LNWrFYSeN3QtjYQkCNcnV872AP boDoL4YGVlynLqM4SmWTGmlFmj WhS6u5E4Si2CDIPmRI31DWC5 bNT1IS42EX25N9KmBudtrCQunC U+PHRhYmxlIHdpZHRoPScxMDAl OfEifSouSW0sFh7pTXGtKTDv lLzudQZgNnIzx7nzVWOzHUtdBM 1itYlnQ1ChlLI9POBsr8k0Ru89 P16yL9MzxFY+PDAyyQD1zLB8 jQ6qTwFdUdP6WBtjP193VuTbgJ RiKbaas4tkx1skvBv6WgB7UQBy doItcHjmQBW5q8PkGr82G76s IHdpZHRoPSIxNSUiIHZhbGlnbj 0qyD0wCi0+ZBSltXB1qBA7dI3v YtZlXqP9UVazF840YiSlbNKp Mvjha7ydk3isgIz0HbFuCEDhvi OgtTfuEOS3s8KfOg64F1BeiNjp c3FgZkk2kx48kHDff7M2lXC0 S1RxAPGcfbwnfKMonYfwDA8jOZ ApwqklTIKpsP0tZMElH3p5NpGk ZrF1UJgdI8NtjjA4JWHrxFYf AEnfZRV5T83wr9D7XYVdXOEhGO D6lUU7eW6gfUuunwcviFTrrCtt nuJreDofRWgmCTzmJ707CAZf hUrhZVBmjS2mHCUpwZLrzMusJB 4wNTBpbjsnPlNURUlOLCBWSVJH RF1SBNLGQVH7S3RnHma0AVPl yEduOB4mfMOhQDxfFp6tyFesfI qsCA7rUCSxnvbsQFTltW1nVAMg aTMusLvaQX5yUDQdtqiqe184 FtEyIVH6AWCjbORgT7JqoZ3aCx TiAMQvZYQaZ6MjlCQyOSuwF103 YOtjPyM8IMBwjrAoS8RhDIJw qWirNkQ0k8F3Oc5tOQ3rWE9sPS qqER97BN32yDLfl1Y6yKM4V5Jf GADgwsdebmpdhYD0UEPkFEMk xO56kJAySEwgPf5pz5K6g030UV OrIVJxoE38Od3pgBrvPODtaEBS wY2ermpwk9qudwqwTwRwLVUv MXe0DCm6WIScdIczYbNpYMO0Mw F8ECQ9vAUkxK4lvKmlwsgdlF1i Oyc+EmmmCHBboaR3I1DsGkv1 ITTucEzmJH4pzGXsAFjrLs4lbW mxtNjcJH1cHXHsgwtbPGEwuX3k YMPuxULscCbuAY6eNVLxwyof q605IuJhVYT0PCHdpDFuC1EnaI 4jXjDyQXNaCRXtL9IwiMAfTLgg J395QZhjVmB6KMPqvoVjF0Zp XWDwpEifLeN3y5P8Tk6NNE1YOQ K9K1FoHjr8QAFemNdiFJ9feZYh NWonBp3lqRldfXvxRW3jMJPy yuxkQCSfeN0uYVFvoSMjsWcuHZ 7qTMTsgpenp880GyZrREQ5SJDv qPBcC7FckU6tUtYfBLWkCQGr U5TggQKuPKdkB129PCrnMaT9ZI ShpjKbE4WlIHRheMhtIqA1h8K2 Ug7HkSGoL8BcO6w8R6SzHlvy dHI+AA23BMWfLM78nJSktILpv2 jlpCi6IlPyGKFqQFB3sUaoFJrp p4TxDGLiO82ziNZfi4Y0IMBd nDdtaILuLfWfiDK2eG0vUXssvp vdi3qrgzfdZdtgq4xjun53iG00 K04uQPkwHBPmHTPdKAQhZCLx vSgtjo0dxB4hQl2+OKJcqZG8aI R2qZ7hQlXwCoR4IOawT705ByMb rQAnNjozw6vax7kcdVe9BqCc AGQeykXrgQrgWFV8h6DsKz60B7 9sIHdpZHRoPSIyMCUiIHZhbGln db2yiE4pMv1+BU1zf3nbgq33 eS70cMP+NTJfCOY8nArrWPydHA JwjF3pCJvjSlT0EUXtDnQmfL82 tSEtWLcrOh5qiEgdbEcaHD1l PRBsxzwxr219LbPxi0umVRWjuX XcQJsgAZX8N99ye6Q0OBYyZBIi JYD3bZE1nP3skHuqghambRLu eXarcxAxxJvfYOhjJPoiH085OP FguIoaIcTwbBSrH5hnrxWXAV7j OjwvdGQ+UKLxQOL6uBuvLQsh SVPuwR9wCCPmX8a7SiMxMgC2MQ neL5GqckA1FIZsxGPiEQQcoQSP tN0wrsubw4crtjdoXaGuATHy MNs8LYn1XYWowPtdTpXnSRZ8Jx J9KVE3dZTijN3mzAaqulpyeW1f Oyc+RklOOjwvdGQ+PHRkIHN0 mBevZChsDYYvmD9uESIeE0w4Vh OnNeW4ZCcoY3LwpoI4TDQhdUYg BMOkvDEHiW3gujgyr9alfkcc JcKaJUZlBUf2QNf2MBXwkOmzJg CyEWS3PtN0SBJ1qVCylR1zbYqj eqcovT0eNbb+TVJOOjwvdGQ+ JESbEXH5dRgvHNpxTLPbbN6xXX NmZ8t5QtBbVgZ6KWfaT5JiywE4 YXMrnQYyIZGgmWSFaF8lruak o4dtuuafOnYnZKTiQBt8KXk9IT OwcChiUzWcMTF6EjY0FAS5fQVv wD3seUrgqlukfO0gKfx+UGF5 IGZ2KY42WS32H3EyGdfawREbiU U+PHRhYmxlIHdpZHRoPScxMDAl KjPkrModMQ4fTb3nXBCfXEIb bGx (more content not included)... Normal [facility] CHLAMYDIA/GONOCOCCUS RAINER ( AB/URINE/PAPon 02-09-2022 Chlamydia trachomatis, RAINER Negative Normal Negative [facility] Comment on above: Performed By: #### R PRQ #### [facility] [address] [place] [address] Dr. Juan Antonio Ibarra Neisseria gonorrhoeae, RAINER Negative Normal Negative [facility] Comment on above: Performed By: #### R PRQ #### [facility] [address] [place] [address] Dr. Juan Antonio Ibarra AFP MATERNAL FOR SPINA BIFID Aon 02-08-2022 AFP MoM 1.41 Normal [facility] Comment on above: Performed By: #### A FPMAT #### [facility] [address] [place] [address] Dr. Juan Antonio Ibarra AFP Value 66.8 ng/mL Normal [facility] Comment on above: Performed By: #### A FPMAT #### [facility] [address] [place] [address] Dr. Juan Antonio Ibarra AFP, Serum for Spina Bifida Report Normal [facility] Comment on above: Performed By: #### A FPMAT #### [facility] [address] [place] [address] Dr. Juan Antonio Ibarra Comment Comment Normal [facility] Comment on above: Result Comment: Melchor Chaudhary, Ph.D., [facility] Director . References: Available Upon Request. . Multiples Of Median Cutoffs For AFP Elevations Briscoe 2.5 Black 2.8 IDD 2.0 Twins 4.5 Abbreviation Definitions IDD - Insulin Dep Diabetes OSBR - Open Spina Bifida Risk . For further inquiries contact [employer] at [phone]. . This test was developed and its performance characteristics determined by [employer]. It has not been cleared or approved by the Food and Drug Administration. Performed By: #### A FPMAT #### [facility] [address] [place] [address] Dr. Juan Antonio Ibarra Gest Age Collection Date 18.3 weeks Normal [facility] Comment on above: Performed By: #### A FPMAT #### [facility] [address] [place] [address] Dr. Juan Antonio Ibarra Gestat, Age Based on LMP Normal [facility] Comment on above: Result Comment: Reca lculations are not recommended when gestational dating by LMP and ultrasound are within 10 days. Performed By: #### A FPMAT #### [facility] [address] [place] [address] Dr. Juan Antonio Ibarra Insulin Dep Diabetes No Normal [facility] Comment on above: Performed By: #### A FPMAT #### [facility] [address] [place] [address] Dr. Juan Antonio Ibarra Interpretation Comment Normal [facility] Comment on above: Result Comment: Inte [...] Customer Services to discuss available options. The [employer] recommends amniocentesis be offered to women age 35 and older. Performed By: #### A FPMAT #### [facility] [address] [place] [address] Dr. Juan Antonio Ibarra [age] Normal [facility] Comment on above: Performed By: #### A FPMAT #### [facility] [address] [place] [address] Dr. Juan Antonio Ibarra Multiple Gestation No Normal [facility] Comment on above: Performed By: #### A FPMAT #### [facility] [address] [place] [address] Dr. Juan Antonio Ibarra OSBR Risk 1 IN 3501 Normal [facility] Comment on above: Performed By: #### A FPMAT #### [facility] [address] [place] [address] Dr. Juan Antonio Ibarra PDF . Normal [facility] Comment on above: Performed By: #### A FPMAT #### [facility] [address] [place] [address] Dr. Juan Antonio Ibarra Race Normal [facility] Comment on above: Performed By: #### A FPMAT #### [facility] [address] [place] [address] Dr. Juan Antonio Ibarra Test Results: Negative [facility] Comment on above: Performed By: #### A FPMAT #### [facility] [address] [place] [address] Dr. Juan Antonio Ibarra VAGINITIS/VAGINOSIS DNA PROB Abdirashid 02-08-2022 Jeremy species Negative Normal Negative [facility] Comment on above: Performed By: #### A 1C #### [facility] [address] [place] [address] Dr. Juan Antonio Ibarra Gardnerella vaginalis Negative Normal Negative [facility] Comment on above: Performed By: #### A 1C #### [facility] [address] [place] [address] Dr. Juan Antonio Ibarra Trichomonas vaginalis Negative Normal Negative [facility] Comment on above: Performed By: #### A 1C #### [facility] [address] [address] [address] Juan Antonio Ibarra ABO and Rh group post transf usion reaction Nom (Bld)Ordered By: Eleazar Hess on 02-06-2022 Microscopic observation Gram stain Nom (Unsp spec) [facility] ED Clinical Summaryon 2021 ED Clinical Summary [facility] Emergency Department [address] [place] [id number] ED Clinical Summary PERSON INFORMATION Name: ZULEIKA WYATT Age: 31 Years Sex: FEMALE : 1990 MRN: Acct#: Visit Reason: Rash; Medical problem - minor; POSS BODY INFECTION Arrival: 01/29/2022 20:27:46 Discharge: 01/29/2022 21:17:00 LOS: 000 00:50 Check In: 01/29/2022 20:27:46 Checkout:01/29/2022 21:17:00 Address: [address] [place] [address] [address] [facility] [address] PCP: Andie Stoddard PROVIDER INFORMATION Provider Role [...] 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 To this they agreed.. Health Status [...] Use: Current Fr (more content not included)... 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 To this they agreed.. Health Status [...] Once. Impression and Plan Diagnosis Sebaceous cyst ([id number] L72.3, Discharge, Medical) Plan Condition: Unchanged. Disposition: Discharged: time 01/29/2022 20:59:00. Prescriptions: Launch prescripti (more content not included)... Normal [facility] ED Patient Summaryon 022 ED Patient Summary [facility] - Emergency Department [address] [place] [address] PATIENT DISCHARGE INSTRUCTIONS Patient Information Name: ZULEIKA WYATT Age: 31 Years Date of : 1990 Reason For Visit: Rash; Medical problem - minor; POSS BODY INFECTION Arrival Time: 01/29/2022 20:27:46 Primary Care Physician: Wyatt PAC, Andie A Attending Physician: Johnson Wright DO Comment: Visit Diagnosis: Diagnoses This Visit Medical problem - minor ([id number]) Rash ([id number]) Sebaceous cyst (L72.3) The Pharmacy at [facility] is open Saturday through Saturday from 9A [...] alcohol and/or drug addiction problems; contact the [facility] 07/01 Crisis Hotline -Text 4HAPI dg [phone]. If you received any narcotics, sedation, or [...] legal documents With: Address: When: Andie Wyatt [address] [place], [place] [id number] Business (1) Within 3 to 5 days Comments: home warm compresses clindamycin for antibioitic see your ob, or Dr Wyatt, for recheck apt ----at some point, this might have to be removed; this is not cancer, but a retention cyst of fat material; Return if very red and tender, or fever, vomiting worse You are welcomed to return anytime. Call Dr Wright, ext [phone], if any question patric WRIGHT< ER PHYSICIAN< [facility] Medication Information: The exam and treatment you received today in the [facility] Emergency Department were for an urgent problem and are not intended as complete care. It is important for you to follow up with a doctor, nurse practitioner, or physician?s assistant boys track coach for ongoing care. If your symptoms [...] so we can reach you if necessary. [facility] Emergency Department has provided you with a complete list of medications post discharge. Please inform your motor vehicle inspector/provider of your visit and for further instruction [...] Epidermoid Cyst (more content not included)... Normal [facility] TYPE AND SCREENon 12-30-2021 TYPE AND SCREEN Antibody Screen NEGA TIVE Blood Bank Notes performed by CV on 12/26/2021 ABO Rh Typing A Rh Positive Blood Bank Notes performed by CV on 12/26/2021 Normal [facility] Comment on above: Performed By: #### R UBIGG #### [facility] [address] [address] [address] Juan Antonio Ibarra HEP B SURFACE ANTIGEN SCREEN on 12-28-2021 HBsAg Screen Negative Normal Negative [facility] Comment on above: Performed By: #### H BSANS #### [facility] [address] [address] [address] Juan Antonio Ibarra HEPATITIS C VIRUS AB W/ REFL EX QUANTon 12-28-2021 HCV AB 0.2 s/co ratio Normal 0.0-0.9 [facility] Comment on above: Performed By: #### A 1C #### [facility] [address] [address] [address] Juan Antonio Ibarra Interpretation: Comment Normal [facility] Comment on above: Result Comment: Nega tive Not infected with HCV, unless recent infection is suspected or other evidence exists to indicate HCV infection. Performed By: #### A 1C #### [facility] [address] [address] [address] Juan Antonio Ibarra HIV 1 AND 2 WITH REFLEXon HIV Screen 4th Generation wRfx Non-Reactive Normal Non Reactive [facility] Comment on above: Result Comment: HIV Negative HIV-1/HIV-2 antibodies and HIV-1 p24 antigen were NOT detected. There is no laboratory evidence of HIV infection. Performed By: #### R UBIGG #### [facility] [address] [place] [address] Dr. Juan Anotnio Ibarra RPR QUANTon 12-28-2021 Rapid Plasma Reagin, Quant Non-Reactive Normal NonRea<1:1 [facility] Comment on above: Result Comment: Plea se Note: This test does not meet current guidelines for screening and diagnosis of syphilis. This test is intended for following treatment response in patients being treated for syphilis infection. To screen for syphilis infection, a reflex cascade that includes both RPR and a treponema-specific assay should be utilized, such as Treponema pallidum (Syphilis) Screening Crockett (793523) or Rapid Plasma Reagin (RPR) Test With Reflex to Quantitative RPR and Confirmatory Treponema pallidum Antibodies (803452). Performed By: #### R PRQ #### [facility] [address] [place] [address] Dr. Juan Antonio Ibarra RUBELLA AB IGGon 12-28-2021 Rubella Antibodies, IgG 3.48 index Normal Immune >0.99 [facility] Comment on above: Result Comment: Non- immune <0.90 Equivocal 0.90 - 0.99 Immune >0.99 Performed By: #### R UBIGG #### [facility] [address] [place] [address] Dr. Juan Antonio Ibarra CBC AUTO DIFFon 12-26-2021 BASO # 0.0 103/ul Normal 0.0-0.1 [facility] Comment on above: Performed By: #### A 1C #### [facility] [address] [place] [address] Dr. Juan Antonio Ibarra Basophils/100 WBC (Bld) 0.3 % Normal 0.2-2.0 [facility] Comment on above: Performed By: #### A 1C #### [facility] [address] [place] [address] Dr. Juan Antonio Ibarra EO # 0.0 103/ul Normal 0.0-0.7 [facility] Comment on above: Performed By: #### A 1C #### [facility] [address] [place] [address] Dr. Juan Antonio Ibarra Eosinophils/100 WBC (Bld) 0.4 % Critically low 0.9-7.0 [facility] Comment on above: Performed By: #### A 1C #### [facility] [address] [place] [address] Dr. Juan Antonio Ibarra Erythrocyte distribution width (RBC) [Ratio] 13.5 % Normal 11.0-15.0 [facility] Comment on above: Performed By: #### A 1C #### [facility] [address] [place] [address] Dr. Juan Antonio Ibarra Hematocrit (Bld) [Volume fraction] 38.9 % Normal 36.0-48.0 [facility] Comment on above: Performed By: #### A 1C #### [facility] [address] [place] [address] Dr. Juan Antonio Ibarra Hemoglobin (Bld) [Mass/Vol] 12.9 g/dL Normal 12.0-16.0 [facility] Comment on above: Performed By: #### A 1C #### [facility] [address] [place] [address] Dr. Juan Antonio Ibarra IG # 0.03 10e3/ul Normal 0.00-0.03 [facility] Comment on above: Performed By: #### A 1C #### [facility] [address] [place] [address] Dr. Juan Antonio Ibarra IG % 0.3 % Normal 0.0-0.5 [facility] Comment on above: Performed By: #### A 1C #### [facility] [address] [place] [address] Dr. Juan Antonio Ibarra LYMPH # 1.4 103/ul Normal 1.2-3.8 [facility] Comment on above: Performed By: #### A 1C #### [facility] [address] [place] [address] Dr. Juan Antonio Ibarra Lymphocytes/100 WBC (Bld) 14.5 % Critically low 20.5-60.0 [facility] Comment on above: Performed By: #### A 1C #### [facility] [address] [place] [address] Dr. Juan Antonio Ibarra MANUAL DIFF REQ NO Normal [facility] Comment on above: Performed By: #### A 1C #### [facility] [address] [place] [address] Dr. Juan Antonio Ibarra MCH (RBC) [Entitic mass] 29.6 pg Normal 26.7-34.0 [facility] Comment on above: Performed By: #### A 1C #### [facility] [address] [place] [address] Dr. Juan Antonio Ibarra MCHC (RBC) [Mass/Vol] 33.2 g/dL Normal 29.9-35.2 [facility] Comment on above: Performed By: #### A 1C #### [facility] [address] [address] [address] Juan Antonio Ibarra MCV (RBC) [Entitic vol] 89.2 fL Normal 81.0-99.0 [facility] Comment on above: Performed By: #### A 1C #### [facility] [address] [address] [address] Juan Antonio Ibarra MONO # 0.5 103/ul Normal 0.3-0.8 [facility] Comment on above: Performed By: #### A 1C #### [facility] [address] [place] [address] Dr. Juan Antonio Ibarra Monocytes/100 WBC (Bld) 4.6 % Normal 1.7-12.0 [facility] Comment on above: Performed By: #### A 1C #### [facility] [address] [address] [address] Juan Antonio Ibarra NEUT # 7.7 103/ul Critically high 1.4-6.5 [facility] Comment on above: Performed By: #### A 1C #### [facility] [address] [place] [address] Dr. Juan Antonio Ibarra Neutrophils/100 WBC (Bld) 79.9 % Critically high 43.0-75.0 [facility] Comment on above: Performed By: #### A 1C #### [facility] [address] [address] [address] Juan Antonio Ibarra Platelet mean volume (Bld) [Entitic vol] 10.0 fL Normal 9.5-13.5 [facility] Comment on above: Performed By: #### A 1C #### [facility] [address] [place] [address] Dr. Juan Antonio Ibarra PLT 194 103/ul Normal 150-450 [facility] Comment on above: Performed By: #### A 1C #### [facility] [address] [place] [address] Dr. Juan Antonio Ibarra RBC 4.36 106/ul Normal 4.20-5.40 [facility] Comment on above: Performed By: #### A 1C #### [facility] [address] [place] [address] Dr. Juan Antonio Ibarra WBC 9.7 103/ul Normal 4.0-11.0 [facility] Comment on above: Performed By: #### A 1C #### [facility] [address] [place] [address] Dr. Juan Antonio Ibarra CULTURE URINEon 12-26-2021 CULTURE URINE Culture Observations : LIGHT GROWTH OF MIXED GENITAL ALONSO. NO POTENTIAL PATHOGENS SEEN. Normal [facility] Comment on above: Performed By: #### R UBIGG #### [facility] [address] [place] [address] Dr. Juan Antonio Ibarra GLYCOHEMOGLOBIN A1Con 2021 ADA RECOMMENDATION SEE BELOW Normal [facility] Comment on above: Result Comment: ADA RECOMMENDED LIMIT 4.0 - 6.0 ADA THERAPEUTIC TARGET < 7.0 ACTION SUGGESTED > 7.0 Performed By: #### A 1C #### [facility] [address] [place] [address] Dr. Juan Antonio Ibarra Glucose [Mass/Vol] 114 mg/dL Normal [facility] Comment on above: Performed By: #### A 1C #### [facility] [address] [place] [address] Dr. Juan Antonio Ibarra HbA1c (Bld) [Mass fraction] 5.6 % Normal 4.5-6.2 [facility] Comment on above: Performed By: #### A 1C #### [facility] [address] [place] [address] Dr. Juan Antonio Ibarra US PREG TVon [...] FELECIA GOLDMAN Date: 2021-12-07 16:59 Normal [facility] Coding Summaryon 11-21-2021 Coding Summary HTMLBase 64 OdvacakmNJj4cTo+PGhlYWQ+PE 2AGSTwU54qtRAgtT8XI0aVPB4H TDNVWREEHT3ENE3zbUJ7HZnjK9 VybiAv CwgicGGpPF97VUu0REJ9yGfbZX ehyQ9kgGXcT6p0OxGtLU91eV85 AAtwUAGhJxV7TpNezxgajGKu O0qrBiRrtBBlSqz+PHRhYmxlIH ysALLbPKjhPUBwFyKapVrqLK9y Xr7gGCLtUGSkdLnshSIxTxSo m8nbFERlAIbwMM8urIdjH9HbeT B3BDSpx2j7Xi48iBG+PHRkIHN0 hIxkFXcuv276IcFpi2wcDBN9 rBNdIVhfNTD2A99fu1J9MWPcAN KgFJD5iNQ1xY5eoMcwimxfK7Ha sSVsFfL4PSH7zGStdL3fbVdl gcfgmN7qDay+G73QQM8XTUAYUF 6VHqt5L8KhCbkbwLX+LF84SMEo IE75aGXpnVOzp4sruSg5TmCd KRGtZKZ1zOlrUXusf7AkOEZzH8 2chYVte8B8FOVfcOvgxGKoLqZh hKF3oD5wBAgddzlxw6vtcqfo Ujkpi8ksvc26oA94P42cGLhcZF IzGMR7MVHmHEOsgWsxxz6huP9x Ii8+OEafv0khd4wtmTg1KuUc IPFdtbCxyPchGOE9w3PgBq24K3 PfcYdut4CxFsa2wy49gQPgf8W5 rIP5WOusKRZqgD6tMJueVnY7 IZNwCqMwjD13mRLhIGpiAu6ksV tzxClzKB9fZWEblocpXHKqcD4q JFIesBGneYmxSB1nZJBanjzp u734LpOsZXA9DPYdjTHkG0CiuO 9xAaHaXXLlVYMnX5LfrWGaNThz Y936UFynMzR5HANyfeWgV3Tu CEYzfXvbOoG9o1S7Gq0Ci6Gxdq wbJEL4VSlaTSQ7GhH2RyHtZgV5 W9AnWea2BAZhcVskBU7kG6Qo NRJxfxpwsidsgMY4TAJgYQKqzZ 53zIGwVIbvKg3lo2W8h931DGHh NGNqyW51Pm0urZfvEDGmqLXC eS9nvxqre9ogiuyiPdUaIFLiCY t9OBw1URRabQfzRwQwKAP1HtO1 DEJ3fYPogE7zrJkecyrhhN5u Oyc+A60kuS7kSXJ1OEY8mhrsLH UjytBkGS23CG17P9CaZwfnrYOy bGU+KXLduoRzvGllAR2gSfHg m1ptz7CsHHbsH5ItTYLhOUpeKl j4YOIlIDD0nGU5kY9kIWDbGQjq f5G9hNZ4V3PrtlKqto7qw6cu VFEdAOmfG34rbNVdb9H0VTHyoP R6DYUquUrtOvXsmZ62Dgp+PGNv xPdvl8XkTycap5pli6syyBb6 GiXnACJihqGqpGygOTB2h3LbFo 16O77jCMxqKEQvDHDrHNOjLBRu cIvtdl2toC8lXb7+PGNvbCB3 fWE0wA1hCYTyDpO2YPxgT103Sg GeoUCqJxluc6xtv6lpwMp2JgSx PHLcojQjrPatUJJ8s2LjUk92 J70gRXxpNWRlIMUuDDHiAUQyiO mqtt7kuD5yKw9+QI3ou1iydo57 vO31cSM+YVPcRXJ8jImqUAkc KPScoZ4rJExhIwD9MPSaYpGeqW 12wPBnJTloVd8pePmmuPrnFC7j OAQftzdil872VePsb0kwRKWq sNRfUUxbDTL2K97gr9E5VONuVB WyDNA0wMO8aU0egIhavsklxACk eIljksOolHocTMrbAKvnW641 IHRvcDsnPlBhdGllbnQgTmFtZT p1A6JxFnn9SKQtrNxjXH0umAZf KHohOi3awBkjbEuxDH2oBKLk anxed909QzVnh2uxKPZciTCrMK rpIZI8E33kx3K2IHGpLGGxNPR2 pWM4pL5igPxfkggxmCQxwYyj kcUwbFbfRTrgOEvoZ647ARAwpL vwRbUrsaAjSEMelMF0NM42NY65 cTLbu9G0yJW4Y3GgLIXhzfdm nwmnwOG4HMQbVWQtiQ61Uy6dkH jsRq6vIXIgJUC8GPJugVUaU6Gx uR7qNvTyHYQxMNHqR2YqcRYs SAqwL333NVkmUnB6DFMndfRyF6 ZrRQUmdAexZvS0i7J3Dr4LJ5G5 ZR09FI16eEEsr6F2xAN4E7Pt ANWengfspspzvPA3VBPvORUptS 06Ev6diOuhRf7lBCDyIAU3SQPf eMWbD4OhvI3gIcWlXXIeCLAu Z2GqyUQjWInvZ819CRdaQmU8QE VvgaGuJ3WuQGKlzKvfLrK4t8O6 Md9XQWp4SA85HW85qTAmo2E7 uOO6I4GgTUZkmvwbtjtbxWT0VS OjPHSkiT87Cr4ebRazOq8oNFXj QEY4AEXomPDtG2OofZ1jSyDo GBVqMCYsC5KcyNSzMYnvY316UC uhQeC0YZPkhnTzX5MwRZAouSxp HnG1g4K7Lh4AADJbLP03FQA6 yEC7GA17LZ05B0HcRqnkqSZziC U+PHRhYmxlIHdpZHRoPScxMDAl EjEldOuuQI9lQj1pBSUwMATa sPradFNxBwRvl8dtDBKlTUuwOM 1kkQkdU8BpjHI5FGNfg0e1Hd78 D48bI7WmvFT+ULIjySC3gME6 dJ3qUaDkXbV1KBarZ493KbFzuX WhIgkpz3ato8hshKp8KaE1JRPe vbPvfEprQKH4r0NeSq81T51q IHdpZHRoPSIxNSUiIHZhbGlnbj 4hbM1kTv6+IFHlgMX8mFA8rL7s IpNfEwE1XXmlL911YaEckFGq Zxrkl6smc2fknLj9LlSgAGRimh FvpEjoUDM9z9GyDy63P7XkiJwl h2VxKuh8cs62xYFlv6F7cFG1 Q3CpLQPdloawkXTvbWrrVU8tVK GqwudzMKNdwB3cTXPhU0m0YfGi FqR9NEvvQ6YvwjL2ZSElfJLn NFytSWY8X21ut8Q2INUfEDBhMB Z9mZE5hK3prDcvaqibvPQesMvg isSwhGkwCDvvZOeaZ219BCXq xLxmVUCflF4oFPIeeMCszModSE 4wNTBpbjsnPlNURUlOLCBWSVJH XT9YCEKPHBH2X9LkSah2NQNk lEunQC1cpKRzZKueLf2zaVkriQ nsDZ0dOGEstsiaCRLcvV5yMWGy kUIqnOjoSE1ePQJeqqajj814 CbWtKWK2YLHucXZgC6FajG9nZx GbGBFpQKVkN8JauEHvXCjlB903 AXmeVtD3NJMtmaNvN7TuVJCy xYejEmV3o3B0Av9aEE8mNE8yRX dbSG78JZ19iSMyz2V1iRA3D2Ll LFEqctbkakuqaVZ3AJCmYIZs tM40mEWdYHipOp7ls0U9k198CD KcSNVwcB01Eg5neUfhUEUbxWTR yN8lfgjqx9tehlccYnYfCARv DRj4YSc3XMJucKxdFmXzMJN2Nd J9OMD5hNFymW2fmQpergzqaP7p Oyc+WlkxMTCxryU6C8NcMyp3 CWMmvChlLD0xnJYpVNkfJd6quM brpDdgBF3xPLFepyxfJHVmoQ0f PQAkbJQkrUcyFK4pVCTliyzf n550VoCfAVQ0OGWkoJQuM7PhgA 6xErTaIPLoBOIrQ1HmjHJwPEnp I369VQiaOgV2KFAokuPrY4Wt RPKsxNgfIkE9j5U3Tp7RSQ0CKV Y1A6BbAup6FGVblRjrRE8bpUXc CFeaIe5euRslsOzeJS9aRZQn hdumCEJaiI8fXTKyfEPmtAgqUW 8aYDQxuhwfn686JnArHYA1BOYx pRDaC9ByyO7xHvVnCZPdYNJq U0MdvIDdRLioM985WKfiHxS9JI DplkAzU2CzOWYtiUpmSaA8g8E2 Gl9LPImepHR+DL38od80I0Ji RbzbHie7CLHrHNJ3kMW1jG8sTB ZnFTmyl8D0uYI7W7EaajKfco7h z5pzDOSlOCknN90flSOxn7B2 YDEniTC1XIYmgHwzOlHfdZ53Cj c+EVPfwQzny5RgRdgck8ruq1hg jQr2WvIcAWEqreYinPueFZC3 m4ZyUk19V36iJYjmGVWiDZQxPQ VcOAExoCqjet8htJ4gOk2+PGNv tPY0fAS0wM3mTyAdVoP8XIdx A256RcPohEZnMhesp2lnm3wjjH e8WbFoGOFhtiUfiCufTKF7u6Yh Uc80L7HvpIdkl0UiAox0ja71 pDKcq6J2hNH4P7UiIDTghzkenZ CqfOeyXF4nQXGeuadbXNInkS4q QPTgI6h6WnYtCcJ2EMnaB9Gr yoR8TPThfYUoHLGfbKDTyB5jcb oni9epvlpbNgYpLQXmOFn2JEp3 RGOhaHiuPpHzXQW3RvT7MOK8 pJWzsT5reBcdhkojtK3uYru+UG s0j8gztXHcHG4pnCD0DL36BT23 kKNsq7V6xCW1V6SoUERlwync muedyIR6BPLaXVSceE71Ma4ixO fgXz2yZQZrEUF7XSKmsOJlM6Yo fS7kLiPxWDXxDKSbA0XswPBa ADntM195REbrZrX5FZEdriUwS5 EgOZOosTvcKtQ4r5S6Qq6UDJ58 JR01MP08yTSox2J8zQN3G1Zh ZGHtkfdvhmqolBY3SPGiTKYawS 24Xk1lsEhxEz2fWXWoAYX6YFDn tWDdH9YnoX9aUeRfMQOmWYUg D4GktDUcMOavR687BFipHvO6EF TskmBeW1WvHZDxwUdwWgW4r0L4 Zo4BBa92QH77CG79gUPpi8P4 kEX1D1EnRXEnzpjarmbokKT7GZ QcDXFnxE38Ia6lrHcpHa2vSJCb WWE3RLWjhDDfU8XegG0zSeUi KHDqHDOeX7JudEQjLUrfX714IT lfVoY3TUHghgWqI0DrHWIytNds TdN0o3K4Du8JJSzolcq4Y7Wr PjwvdHI+AQ49FLPiUG43zYIpaN Rgg6ohqBs3UsHzJCXzQMZ2jRil MLnzi6VyUNIrW54jgGKob5P5 IGN (more content not included)... [facility] Coding Summary HTMLBase 64 ExcopmkqKMe8pHf+PGhlYWQ+PE 0RLXCoR88mtMFbeN8UQ1hFFC3Z FCRJNNZVFX5RBS7utNT1GRwfK2 VybiAv YqeblFTsZZ53ERu0EQE4fCpeKX aayS7amDSzF1o6QuRnJT60sJ85 NZthVZVcBuO5WsExunkfvAXp S8vxYtDmgFItScf+PHRhYmxlIH bjWUIbGJrrUAIoGqQfvNppND1w Jv7yJRIuLWQciHnieLGwLnNs h5dhCHNtFTvqLD3ygBtpC5FuuQ K9ULKbf8q4Rk38dPF+PHRkIHN0 xEfkAJfyf521ApTtv7jyBWX0 dVRhKGvmUUK0O58sp0D8YYHqDV MdLQL9fPH2qE8oqJoppliuN1Yw jALxOkC3USO3kAMieG5npXyc ypsrdR5jBnh+A76XHC4TRDPMGM 1WRtn3L2WzWlxfyPD+RE72UCIx OP33yUMczSHti2qhbOg0LjIr SSFlETG6sUtjDCnfk9RyWQExL1 4cwFZyz0B7EBHgeXeguWQmApFs zKY2bR3cPJwalcdfa1tfvagl Ngypk3khlq37jA83D89eHBmpLU NoBRC0GGLwCGTpyVvcut6bvZ4b Ii8+PSlcb1zxk3mnvKo5FiWh FZYlmiVihLyaPEW5d9JySg48Q5 UdpHgoj4LuYgm6ea87gTOnp2N8 qIB8HLmcPTOglF0wRQoeJaC2 LRKsQeIyiQ34lMEmMMtzRz1ykA ksvUecUZ0qYEEfmkhhQEPndD8h ZYDpeMXyvKhmQK0jMSVmvhwi r456HkLeWTA8QUVpmXKkE6JmmH 4yWhPrVQRsTCNgC0PofSEeFMbv Q707EAwmPyX4SLVzssEqC3Da PVXlbNroKxZ4v0W1Om3Cz8Acsg gbBDE3HOefUZJ2SeA2PaUyEqU7 X8RuSiw6AYNuvLjyYO3nL9Ih XUFbevbgigddjGN9IMKaZHNlpK 54yEYgWEoiBe5cv0H3z554SFMn QHUccD40Wj7gvVeoYOReqNFN yJ9uoseuq8gfiwqpHxOoMRGkVB m2CFo4TZRoiIbbFbIhBSI2QwU9 CQW5pBIrhC5liOezcbxgkI2c Oyc+Y53ixC3lEBX4DPI0teujUB MvxgWnFO51DE48N2BvAxqoeRNn bGU+QBIxisYvoNpaVZ3tRqXj q9ery7AoYJfoD6HlTQUjMWtcSe p0HHWtYMI6uPQ9aM5nRIHsLGtw r2J2mVN4J5AiwnJhif7cm2vx NMPjCSkyA83geVOwx8E2OHXheW I2MBAglIfyQdAvuO93Crs+PGNv dTdfr8MyHndhw2vjq3dhqUy2 MwJfVYMmezTaiMbxWUE4r3VsDc 23A02wVLsdZEDlKTFzJXQnNMNz lZnbkj1joQ5aQy8+PGNvbCB3 uOP1tX4oGAAnOeZ8PYtgP582Xt IoeKMaYdqde3rog3elnEq1NrZc AIPgiuWisVvxKHT1w6IfKd82 M45eLSxkQLFrKSEjSFLxNRSjpV yllr5hgU1qGf0+EK1ot7wcos62 vR44hMR+KJKbFOM2xOjwLWti LMFerB8zDSenXhG5SQEcUrNwzB 20eINaAAvhUx3azOlyqMbyWS5q WULnlwztg301IoJyc6umHMFb cEAmBMwoJEL9R29sq1E7CZBoXU NtVJP6jLK8fS1esQkhfwdxhNHj tObbwuEvbSlbJJclCNaqJ157 IHRvcDsnPlBhdGllbnQgTmFtZT h6J4WoLam7VXYmvAtzIJ3afLPn GZzyKs3rgShulVxfMP6uAMOo jmkoa353UlWtu2euFRYucWLuXA wfRZU2B59dq0S3WCLhRTKlAVJ0 sKX1uV9liLtbvagppTVfsXbc ksQegTnzGXenLKjuO192DZDrhO taOhIbkiHrKEZquJP0BX52VR81 vYSpe2G9yMW6H1TcHYIpmxac btgbnBP6WOExQGKmqR86Dr2ugI hyIw6tUPIxMOS5FMYrxRIvS9Yt rW0mWiXrCSKwNQBuC9SuyEDg IGuuP791PImuMjA3CWJzrwHiA4 IdTNBjiDbbIeA6x7R1Su6QC3W1 WM60GM80mVNjs2Y6jPG9J1Fi XJQllcfubimjuMH6WHVoTLFtbT 08Nt0esBwzQa2zRFZzOYN9BMMu eMFpI3OmnK9aKeYiFXZpVKDg P0XjbLErHAddZ897FKyvTtO4KY UibtOkZ5EdKQUuhFteNuS1l2N5 Tz9WIOj5BI68NT29sHXkl3M3 rQC8G3OhPCLjvnvtvptrrAV1DQ KoOEFcuM72An3lqXusXk2zIUOq RRV3RFJvkXAnY8IerF8pBnHq OAOrGKJeD5UmyXYwZVzlJ359GR bpPuJ8WXFxmgOaX0UyXLSdiPqt FyW8j5D7We5VLNNmKJ79ABC7 nLM0LM76RZ72H6QbWmotsHPaqS U+PHRhYmxlIHdpZHRoPScxMDAl YuKrhHhfMI3eNu8yBCUnOMVd eTsbxTYyGnFfi5qjNRJeDGwdES 2gbMbpC2YvsEC8WXCcl6u3Kc79 L48hL5JguKB+CRLdfBK7gBV4 lF3kWiApYbH1NOplL274HkOsxL ChImkxj5vmg4rgoKh6BnX4AYVu brBsnPdqZCN6j8TtXa97V15h IHdpZHRoPSIxNSUiIHZhbGlnbj 7bzF3oRv0+RJMzgAO9qXL9aJ7l FvHbXqJ4MBgyH814XqHyzTFh Ojrev5iwu5xjnLn3UeDgWASaez JxeZvwZXF6z7IqTe54Q4JzkHvv m5ZmQzb3gs74hDKzc2C0uLB8 C1YnEBVipudhbNMhaUagAP1rRW PqyihgIYZwsS2cKTHnJ5b9JiUk EaN0MLehJ0RhzgE6SHXujUAr TMpjKJD7E08xl0M8HXVeUOVhXU U9cLT2wL2pbRkxbdnfqZTauShw uuCpeYxjDKfsZXjnE021PLGv lNzmEGLxuI4sABHgkFEucPwcNV 4wNTBpbjsnPlNURUlOLCBWSVJH XW3JSWXAWJF4E5JcKbo0NVRx yFjqXN5arUKyUAfxMs9piOryvV gvLI0tBWZmjxtaZIFimK2xJOTe bLJfaHihCH8iWODhwvvol452 SpXkLJH2KWVsjSWaJ0UzoX7uIu SzMYKlOZBvA5DloONlUEpkZ141 MOaeCbM1YDYoojIoA9RqLHNq zQxkGpN8y3S0Rj1qKF0lTF3sAK kyVI70YJ12kLTkq3R0pQE1E6Bm RYDtghfnviuhdOH2RMUtYNCz sJ07qLJaVLrsHm1yn8Z3n112GY JyXFSzfG40Dg5spTgrNYDabMHS xE7paeryq5kxeefwVpNkLQWi GDe1WKs1GBHwjZxnBoLwBUJ8Sf M9PNL2aUZhdQ2ayYgdbjisrY9i Oyc+FmazGLWilhZ9D9WnQrp5 PYQlgRyrNS8oqDLoXTszGx5ciO jwtWzcGJ0rVCXdstdpDOJbuS6b YPSrdQDnlAatHQ0cMLMjhdgk s793TaWuDIP3KBGmbAHmQ7JmnT 8kDaZjMVPsPYZyB5TvxCIgOWwz W446BExaFpS8UHKlgsAfZ9Yl YIBxfBiaNjZ6l8S2Zk7VQK0OJV B8D1KaKys3XUGxgSbzIN0fdPWo SNrjNl5maNvqbAmkVL4kXQLo asumJFNhzE7yGMZgtMTdiUixOW 5nMZTwvkftz046LmSyMOT9SMFw yMBcT1BhpB8dCwCcJSSsFJGc S2LdvRHgVMxjP398AEhvFiN0OW KbaiWeC1LiKHYkpGdwAwU6t3W8 Ou5GvHMnM5WfB4t6X2LcDjld dHI+PL22QMEfNI96uVWfjNVoq2 hkcEa7FaTlSATzXHU6iSgzJXxa n4CnWMJhS73coAXqd3S3EROb tBdvrHKjJoAiuTR2jQ2bZOrvsm rdn8socaqiXzqxa6udxh48dJ52 D66tAEebMCTfFSYeTSUeEUZx pKtteh3djP8kMh6+IBFlzSM3kZ B2wA0vCsRuIcE6JHwpL689ZqVy cWFuVqqst0kqo8hsqIv7QnIt OISaesCiqYayTWY4c6GfVf36A4 9sIHdpZHRoPSIyMCUiIHZhbGln qh4imU0pFj7+IC9ll1hjxg82 qN70cIB+CLNsEMW5hBioGZokRQ MqrS7xKIlhZqB9OPWnEaMqcQ50 bVNiVVngTi9doLiwzLtyAH8a CVDlwkcea669ReBcn8ibTCTrvA EiBMjuGEQ0L38iz0V1ONOuURLs XQV7yBL4xS0lhQhkvczllNHb nMamdpQfrGwnMFmwUKruC631BE LvsPerLlOeuJIlZ9oejiGGCP8h OjwvdGQ+QJOmDUK3tUbzQKrg NGOouW7aNLNmJ4z6NeFuDeP7FL irJ6KmfvD9WPBynQQcDJUenZDD zC6qyktld6rrpqihNxDlCGWt DOh5DSm1COUmiIhoUyLgIKE3Kl J0YTI5yWSptO1peGtlnosgcX7j Oyc+RklOOjwvdGQ+PHRkIHN0 iXleIAivRSVeyG0oPFZlU0u3Dt KsSkY0URxwQ6ZvskB2NEBbcGLx WXPawYXGjF9nkntsb1wckkop YmYxYPSwSNr7JYo3EKXgqEzkSl YtZVE7ErE4QPT3lJIvxA2atDab kozcuR2bQfo+TVJOOjwvdGQ+ EKEdJPL5nPfdEWbqOYRptX6uET RgX7l2RuLeAzE0BDypW4AlnjN9 RWMomWBvDSUeyYLEtP5wjiqc t5avrdigGxWqVQRdIIa3VAg2GH IguTjdEnAtQBM4ScD6QFR0pVUd mI1qxOevpbbgpB3nEvi+UGF5 CAE4FR24KP09F8VkLwqqyFFmzR U+PHRhYmxlIHdpZHRoPScxMDAl LtFgeLlyKI2mPx3uXGCmUSBi bGx (more content not included)... Normal [facility] ED Clinical Summaryon 2021 ED Clinical Summary [facility] - Emergency Department [address] [place] [id number] ED Clinical Summary PERSON INFORMATION Name: ZULEIKA WYATT Age: 31 Years Sex: FEMALE : 1990 MRN: Acct#: Visit Reason: Rib/trunk pain-swelling; ABD PAIN Arrival: 11/13/2021 16:30:24 Discharge: 11/13/2021 18:01:00 LOS: 000 01:31 Check In: 11/13/2021 16:30:24 Checkout:11/13/2021 18:01:00 Address: [address] [place] [address] [address] [facility] [address] PCP: Andie Stoddard PROVIDER INFORMATION Provider Role [...] With: Address: When: CUONG ORTIZ [address] [place] [address] Within 1 to 2 days Comments: Diagnosis [...] results be sent to Dr. Ortiz, your BACKEND JAVA DEVELOPER physician. She will contact his office tomorrow [...] Patient/family/caregiver verbalizes understanding of instructions given Comment: [facility] ED Note-Nursingon 11-13-2021 ED Note-Nursing pt [...] 6 with steady gait and no assistance. [facility] ED Patient Summaryon 022 ED Patient Summary [facility] - Emergency Department [address] [place], [place] [id number] PATIENT DISCHARGE INSTRUCTIONS Patient Information Name: ZULEIKA WYATT Age: 31 Years Date of : 1990 [facility]: [id number] Reason For Visit: Rib/trunk pain-swelling; ABD PAIN Arrival Time: 11/13/2021 16:30:24 Primary Care Physician: Andie Stoddard Attending Physician: Gamaliel Wyman MD Comment: Visit Diagnosis: Diagnoses This Visit Elevated blood pressure reading (R03.0) History of abdominal pain (Z87.898) at early stage (Z34.90) Rib/trunk pain-swelling ([id number]) Prescription Information: If you have been given a prescription for narcotics, seek immediate medical attention if you have any difficulty breathing or any sudden status changes such as confusion and sleepiness. If you or anyone you know is experiencing suicidal thoughts, mental health, alcohol and/or drug addiction problems; contact the [facility] 07/01 Crisis Hotline -Text 3OBAW jm 879599. If you received any narcotics, sedation, or [...] legal documents With: Address: When: CUONG ORTIZ [address] [place] [address] Within 1 to 2 days Comments: Diagnosis [...] results be sent to Dr. Ortiz, your BACKEND JAVA DEVELOPER physician. She will contact his office tomorrow [...] and treatment you received today in the [facility] Emergency Department were for an urgent problem and are not intended as complete care. It is important for you to follow up with a doctor, nurse practitioner, or physician?s assistant boys track coach for ongoing care. If your symptoms [...] so we can reach you if necessary. [facility] Emergency Department has provided you with a complete list of medications post discharge. Please inform your motor vehicle inspector/provider of your visit and for further instruction [...] Temporal: 3 (more content not included)... Normal [facility] hCG Quantitativeon 2 hCG Quantitative 00023.0 mIU/mL High 0.0-0.6 [facility] Comment on above: Order Comment: Pleas e call or fax results to Dr. Ortiz's office Result Comment: Resu lt confirmed by dilution Post-Menopausal Reference Range is: 0.1-11.6 mIU/mL Performed By: #### 7 [id number] #### [facility] (DEFAULT) [address] [place] [address] Coding Summary.on 12-19-2018 Coding Summary. CODING DATE: [address] [facility] DSC STATUS: Left Against Medical Advice [...] 12/19/2018 10:35 am Normal [facility] ED Clinical Summaryon 2018 ED Clinical Summary (Inserted Image. Elena ble to display) [place] [id number] ED Clinical Summary Person Information Name: ZULEIKA [facility] Age: 28 Years : 1990 12:00 AM Sex: Female Language: PCP: Marital Status: Phone: [phone] Visit Id: Visit Reason: Test; MENSTRUAL PROBLEMS [...] 12/15/2018 5:58 PM 12/15/2018 5:58 PM ADDRESS: [address] [place] [phone] PHYS DOC NOTES: MEDICAL INFORMATION: Prescriptions Given: PATIENT EDUCATION INFORMATION: Instructions: Follow up: DIAGNOSIS: Normal [facility] ED Patient Education Noteon 12-15-2018 ED Patient Education Note Normal [facility] ED Patient Summaryon 019 ED Patient Summary (Inserted Image. Elena ble to display) [place] [id number] Patient Discharge Instructions Person Information Name: ZULEIKA VILLALTA Age: 28 Years Arrival Date: 12/15/2018 4:37 PM Discharge Diagnosis: Primary Care Physician: Provider Information Primary Provider: Advanced Ethanol Maintenance Mechanic:None The exam and treatment you received in the Emergency Department were for an urgent problem and are not intended as complete care. It is important that you follow up with a doctor, nurse practitioner, or physician?s assistant boys track coach for ongoing care. If your symptoms [...] opioids can be used to help relieve sxjdfjqm-cq-xnuoav pain and are often prescribed following a [...] be struggling with addiction, tell your health intensive care nurse and ask for guidance or call [facility] National Helpline at 0-269-950-FMKS. v Source: [place] Department of Health and Human Services/Center for Disease Control & Prevention [facility] Medications Given: Medication Dose Route No medications found. Medication Information: Comment: Pharmacy Information: Thank you for choosing [facility] Patient Education Materials: JADEN Jacome [place] , have received the following patient education materials/instructions and have verbalized understanding: Patient Education Materials: Follow-up Instructions: Prescriptions: Patient Signature __ Date Clinician/Nurse Signature Date 12/15/18 17:58:[address] [facility] Progress Note-Nurseon 2018 Progress Note-Nurse [...] of her daughter. Normal [facility] U BetaHcg Qualon 12-15-2018 HCG.beta subunit (U) [Moles/Vol] Negative Normal [facility] Comment on above: Performed By: #### 2 [id number], [id number] #### [facility] [address] [place] [address] UA With Cult Reflexon 2018 Bacteria LM Ql (Urine sed) TRACE Normal Trace [facility] Comment on above: Performed By: #### 2 [id number], [id number] #### [facility] [address] [place] [address] Bilirubin Ql (U) Negative Normal Negative [facility] Comment on above: Performed By: #### 2 [id number], [id number] #### [facility] [address] [place] [address] Clarity (U) CLEAR Normal Clear [facility] Comment on above: Performed By: #### 2 [id number], [id number] #### [facility] [address] [place] [address] Color (U) YELLOW Normal Yellow [facility] Comment on above: Performed By: #### 2 [id number], [id number] #### [facility] [address] [place] [address] Epithelial cells.squamous LM.HPF (Urine sed) [#/Area] 0-2 Normal 0-[address] [facility] Comment on above: Performed By: #### 2 [id number], [id number] #### [facility] [address] [place] [address] Glucose Test strip (U) [Mass/Vol] Negative Normal Negative [facility] Comment on above: Performed By: #### 2 [id number], [id number] #### [facility] [address] [place] [address] Hemoglobin Ql (U) Negative Normal Negative [facility] Comment on above: Performed By: #### 2 [id number], [id number] #### [facility] [address] [place] [address] Ketones (U) [Mass/Vol] Negative Normal Negative [facility] Comment on above: Performed By: #### 2 [id number], [id number] #### [facility] [address] [place] [address] Kaka.plasma/Kaka .RBC (Bld) [Mass ratio] 0-3 Normal 0-[address] [facility] Comment on above: Performed By: #### 2 [id number], [id number] #### [facility] [address] [place] [address] Nitrite Ql (U) Negative Normal Negative [facility] Comment on above: Performed By: #### 2 [id number], [id number] #### [facility] [address] [place] [address] pH (U) 6.5 [pH] 5.0-9.[address] [facility] Comment on above: Performed By: #### 2 [id number], [id number] #### [facility] [address] [place] [address] Protein (U) [Mass/Vol] Negative Normal Negative [facility] Comment on above: Performed By: #### 2 [id number], [id number] #### [facility] [address] [place] [address] Specific gravity (U) [Rel density] 1.010 1.005-1.[address] [facility] Comment on above: Performed By: #### 2 [id number], [id number] #### [facility] [address] [place] [address] UA Spec Desc Clean Catch Normal [facility] Comment on above: Performed By: #### 2 [id number], [id number] #### [facility] [address] [place] [address] Urobilinogen Qn (U) 0.2 {Pamela'U}/dL Normal 0.0-1.[address] [facility] Comment on above: Performed By: #### 2 [id number], [id number] #### [facility] [address] [place] [address] WBC Auto Ql (U) Negative Normal Negative [facility] Comment on above: Performed By: #### 2 [id number], [id number] #### [facility] [address] [place] [address] WBC LM.HPF (Urine sed) [#/Area] 0-5 Normal 0-[address] [facility] Comment on above: Performed By: #### 2 [id number], [id number] #### [facility] [address] [place] [address] Auto Diffon 12-12-2017 Basophils Auto #/vol (Bld) 0.1 E3/mcL Normal 0.0-0.2 [facility] Comment on above: Order Comment: Order Added by Discern Expert. Performed By: #### 2 [id number] ####[address] [place] [address] Basophils/100 WBC Auto (Bld) 0.9 % Normal 0.0-2.0 [facility] Comment on above: Order Comment: Order Added by Discern Expert. Performed By: #### 2 [id number] ####[address] [place] [address] Eos Absolute 0.0 E3/mcL Normal 0.0-0.7 [facility] Comment on above: Order Comment: Order Added by Discern Expert. Performed By: #### 2 [id number] ####K[address] [place] [address] Eosinophils/100 leukocytes 0.4 % Normal 0.0-11.0 [facility] Comment on above: Order Comment: Order Added by Discern Expert. Performed By: #### 2 [id number] ####[address] [place] [address] Lymphocytes 1.4 E3/mcL Normal 1.2-3.4 [facility] Comment on above: Order Comment: Order Added by Discern Expert. Performed By: #### 2 [id number] ####[address] [place] [address] Lymphocytes/100 leukocytes 16.6 % Low 20.0-55.0 [facility] Comment on above: Order Comment: Order Added by Discern Expert. Performed By: #### 2 [id number] ####K[address] [place] [address] Routt Absolute 0.5 E3/mcL Normal 0.0-0.7 [facility] Comment on above: Order Comment: Order Added by Discern Expert. Performed By: #### 2 [id number] ####[address] [place] [address] Monocytes/100 leukocytes 5.5 % Normal 0.0-10.0 [facility] Comment on above: Order Comment: Order Added by Discern Expert. Performed By: #### 2 [id number] ####KADEN [address] [place] [address] Neutro Absolute 6.7 E3/mcL High 1.4-6.5 [facility] Comment on above: Order Comment: Order Added by Discern Expert. Performed By: #### 2 [id number] ####KADEN [address] [place] [address] Neutro Auto 76.6 % High 37.0-75.0 [facility] Comment on above: Order Comment: Order Added by Discern Expert. Performed By: #### 2 [id number] ####[address] [place] [address] CBC w/ Auto Diffon 8 Erythrocyte distribution width Auto Ratio (RBC) 15.0 % High 11.5-14.5 [facility] Comment on above: Performed By: #### 2 [id number] ####K[address] [place] [id number] Erythrocytes (RBC) 4.94 E6/mcL Normal 3.90-5.40 [facility] Comment on above: Performed By: #### 2 [id number] ####[address] [place] [id number] Hematocrit (HCT) 40.0 % Normal 36.0-48.0 [facility] Comment on above: Performed By: #### 2 [id number] ####[address] [place] [id number] Hemoglobin mass conc (Bld) 13.0 g/dL Normal 12.0-16.0 [facility] Comment on above: Performed By: #### 2 [id number] ####[address] [place] [address] MCH 26.2 pg Low 27.0-31.0 [facility] Comment on above: Performed By: #### 2 [id number] ####[address] [place] [id number] MCHC mass conc (RBC) 32.4 g/dL Low 33.0-37.0 [facility] Comment on above: Performed By: #### 2 [id number] ####KADEN [address] [place] [address] MCV 81.0 fL Normal 78.0-100.0 [facility] Comment on above: Performed By: #### 2 [id number] ####[address]ADEN [address] [place] [address] Platelet mean volume (PMV) 7.5 fL Normal 7.4-11.0 [facility] Comment on above: Performed By: #### 2 [id number] ####[address] [place] [address] Platelets 347 E3/mcL Normal 130-400 [facility] Comment on above: Performed By: #### 2 [id number] ####[address] [place] [address] WBC (Leukocytes) 8.7 E3/mcL Normal 3.6-11.0 [facility] Comment on above: Performed By: #### 2 [id number] ####[address] [place] [address] CMPon 12-12-2017 Alanine aminotransferase (ALT) 14 Int._Unit/L Normal 10-40 [facility] Comment on above: Performed By: #### 2 [id number] ####[address] [place] [address] Albumin 3.8 g/dL Normal 3.2-5.0 [facility] Comment on above: Performed By: #### 2 [id number] ####[address] [place] [address] Albumin/Globulin Ratio 1.0 {ratio} Low 1.1-1.9 [facility] Comment on above: Performed By: #### 2 [id number] ####[address] [place] [address] Alk Phos 75 Int._Unit/L Normal 42-121 [facility] Comment on above: Performed By: #### 2 [id number] ####[address] [place] [address] Aspartate aminotransferase (AST) 18 Int._Unit/L Normal 10-42 [facility] Comment on above: Performed By: #### 2 [id number] ####[address] [place] [address] Bili Total 1.0 mg/dL Normal 0.2-1.0 [facility] Comment on above: Performed By: #### 2 [id number] ####[id number] [place] [address] BUN/Creatinine Ratio 12.5 ratio Normal 5.4-30.0 [facility] Comment on above: Performed By: #### 2 [id number] ####[address] [place] [address] Creatinine 0.8 mg/dL Normal 0.6-1.3 [facility] Comment on above: Performed By: #### 2 [id number] ####[address] [place] [address] Globulin 3.8 g/dL Normal 2.0-4.0 [facility] Comment on above: Performed By: #### 2 [id number] ####[address] [place] [address] Protein 7.6 g/dL Normal 6.4-8.3 [facility] Comment on above: Performed By: #### 2 [id number] ####[address] [place] [address] Urea nitrogen 10 mg/dL Normal 7-18 [facility] Comment on above: Performed By: #### 2 [id number] ####[address] [place] [address] Calcium 9.3 mg/dL Normal 8.4-10.2 [facility] Comment on above: Performed By: #### 2 [id number] ####[address] [place] [address] Chloride 105 mmol/L Normal 98-107 [facility] Comment on above: Performed By: #### 2 [id number] ####[address] [place] [address] CO2 25.1 mmol/L Normal 24.0-30.0 [facility] Comment on above: Performed By: #### 2 [id number] ####[address] [place] [address] Glucose mass conc 101 mg/dL High 70-99 [facility] Comment on above: Performed By: #### 2 [id number] ####KADEN [address] [place] [address] Potassium molar conc 3.4 mmol/L Low 3.5-5.1 [facility] Comment on above: Performed By: #### 2 139321 ####KADEN BairdTrfRmtw5286 [place] [address] Sodium 140 mmol/L Normal 136-145 [facility] Comment on above: Performed By: #### 2 565508 ####KADEN Luceroo1025 [place] [address] Lipase Levelon 12-12-2017 Lipase Lvl 30 U/L Normal 8-57 [facility] Comment on above: Performed By: #### 2 324952 ####KADEN AooZrtx0794 [place] [address] UA Completeon 12-12-2017 UA Blood 3+ Normal Negative [facility] Comment on above: Performed By: #### 2 655557 ####KADEN XniOhnq6404 [place] [address] UA Bacteria Trace Abnormal None [facility] Comment on above: Performed By: #### 2 320522 ####KADEN AykNqyi3217 [place] [address] UA Clarity SltCloudy Abnormal Clear [facility] Comment on above: Performed By: #### 2 933622 ####KADEN RbsWske3458 [place] [address] UA Hyal Cast 0-2 Normal 0-2 [facility] Comment on above: Performed By: #### 2 212289 ####KADEN YfoPsjc1827 [place] [address] UA Leuk Est 3+ Abnormal Negative [facility] Comment on above: Performed By: #### 2 778680 ####KADEN OtzTfda3185 [place] [address] UA Mucous Many Abnormal Trace [facility] Comment on above: Performed By: #### 2 104590 ####KADEN RmdYlru5999 [place] [address] UA Nitrite Negative Normal Negative [facility] Comment on above: Performed By: #### 2 993582 ####KADEN FpjCtur3415 [place] [address] UA pH 5.0 Normal 4.6-8.0 [facility] Comment on above: Performed By: #### 2 561248 ####KADENMorelia BairdZjnYase4683 [place] [address] UA Protein 1+ Abnormal Negative [facility] Comment on above: Performed By: #### 2 773794 ####KADEN Luceroo[address] [place] [address] UA Spec Grav 1.026 Normal 1.003-1.03 0 [facility] Comment on above: Performed By: #### 2 874524 ####KADEN [address] [place] [address] UA Squam Epithelial 0-5 Normal 0-5 [facility] Comment on above: Performed By: #### 2 166825 ####KADEN TltLayr5109 [place] [address] UA Urobilinogen 2.0 mg/dL Abnormal [facility] Comment on above: Performed By: #### 2 291515 ####KADEN [address] [place] [address] UA WBC >50 Abnormal 0-5 [facility] Comment on above: Performed By: #### 2 901611 ####KADEN XjcFtmn2641 [place] [address] Urine, color Yellow Normal Yellow [facility] Comment on above: Performed By: #### 2 351911 ####KADEN DssXges1293 [place] [address] Urine, erythrocytes 20-50 Abnormal 0-3 [facility] Comment on above: Performed By: #### 2 065284 ####KADEN InyDvll0599 [place] [address] Urine, glucose Negative Normal Negative [facility] Comment on above: Performed By: #### 2 985853 ####KADEN KfiAimj1403 [place] [address] Urine, ketones presence Trace Normal [facility] Comment on above: Performed By: #### 2 418940 ####KADEN BairdHjoQztl7149 [place] [address] Urine, urobilinogen Negative Normal Negative [facility] Comment on above: Performed By: #### 2 771126 ####KADENMorelia BairdWqyUnni0715 [place] [address] eGFRon 12-12-2017 eGFR AA >60 Normal [facility] Comment on above: Order Comment: Order Added by Discern Expert. Performed By: #### 2 729862 ####KADEN BtfZuwz1871 [place] [address] eGFR (non-black) mL/min/{1.73_m2} Normal [facility] Comment on above: Order Comment: Order Added by Discern Expert. Performed By: #### 2 283088 ####KADEN FvzGmaq4775 [place] [address] HISTORY PHYSICALon HISTORY PHYSICAL HNO ID: [id number] thor: Clara Baker WolfeService: Maternal MedicineAuthor Type: PhysicianType: HANDPFiled: 12/02/2017 9:04 AMNote Text:[facility] DOCUMENTDISCHARGE SUMMARYPatient Name: Zuleika Gtz [...] in 4 weeks with provider.DO Debo Vanegas [facility] PROGRESSon 12-02-2017 PROGRESS HNO ID: [id number] thor: Marie Lema (Res) LendeService: ObstetricsAuthor Type: [...] with more than 50% of the total medy-vh-idfwsiwf of the visit in counseling / coordination [...] decreasing.Ambulating without difficulty.OBJECTIVE:PHYSI GEN EXAM:Heart: RR, S1, P1Csooh: clear to auscultationAbdomen: Soft Bowel sounds present [...] December 02, 2017 : 5:45 AM Normal [facility] SOCIAL WORKon 12-02-2017 SOCIAL WORK HNO ID: [id number] thor: Meredith France ([place]): Social WorkAuthor Type: Social WorkerType: Social WorkFiled: 12/02/2017 12:25 PMNote Text:SOCIAL WORK CONSULT NOTESERVICE DATE: 12/02/2017SERVICE TIME: 1015Referred by: Jose for visit:Maternal/ - adjustment to conditionLiving Arrangement: HomeLives With: PartnerFinancial Resources: DisabledPrimary Contact:Extended Emergency Contact Information DARRELL BRANCH IIPrnorth car[facility] hospitaladelaida Emergency Contact: No,ContactRelation: OtherSupportive: YesOther Important [...] from hospital. (FOBparents are Anamika Munoz of [address] [place] [address] , [facility]).Per pt and FOB, all needed baby supplies and equipment are at the [facility] and a nursery has been set up.Per pt, name of baby girl is Martha Branch.Pt states she is on SSI and WIC.Pt shares that she is in ongoing counseling at [facility] in [place] and has appointments 2 x per month.Discussed with pt and FOB signs and sx of depression; safe babysleep and discussed ways to deal with crying . Pt again states sheis going to rely on her support system.No additional issues identified at this time. Encouraged pt and FOB toutilize services through [facility]. Providedcontact information.Outcome/Recomm endations:Assistance through [facility] spent (minutes): 60SIGNATURE: CARLA Goncalves PATIENT NAME: Zuleika BecerrilnDATE: December 02, 2017 : 11:10 AM PAGER/CONTACT#: Debo [facility] ALLEY INTRAOPon 12-01-2017 ANES INTRAOP HNO ID: [id number] thor: Terrance Lockhartervice: AnesthesiologyAuthor Type: Nurse AnesthetistType: Anesthesia IntraOpFiled: 12/01/2017 9:41 AMNote Text:ANALGESIA PROGRESS RECORDCATHETER REMOVAL/END OF CASESERVICE DATE: 12/01/2017REMOVAL DATE AND TIME: 11/30/2017, 1953DELIVERY DATE AND TIME: 11/30/2017 at 5:49 PMCATHETER REMOVAL:Catheter Removal: See [facility] Nursing noteSIGNATURE: Terrance Contreras APRN.CHIARA PATIENT NAME: Zuleika LambATE: December 01, 2017 : 9:40 AM PAGER/CONTACT #: [facility] ANES Keke 12-01-2017 ANES POST HNO ID: [id number] thor: Terrance Leblanc) Richyervice: AnesthesiologyAuthor Type: Nurse [...] 2017 : 9:42 AM PAGER/CONTACT #: Debo [facility] PROGRESSon 12-01-2017 PROGRESS HNO ID: [id number] thor: Marie Lema (Res) LendeService: ObstetricsAuthor Type: [...] decreasing.Ambulating without difficulty.OBJECTIVE:PHYSI EGN EXAM:Heart: RR, S1, U0Kvtnb: clear to auscultationAbdomen: Soft Bowel sounds present [...] December 01, 2017 : 6:40 AM Normal [facility] ABO/Rh Confirmationon 2017 ABO group Nom (Bld) A Normal [facility] Comment on above: Performed By: #### A JESSIE #### [place] [address] RH Type Positive Normal [facility] Comment on above: Performed By: #### A JESSIE #### [place] [address] ANES PREOPon 11-30-2017 ANES PREOP HNO ID: [id number] thor: Aaron (Chiara) PoloService: AnesthesiologyAuthor Type: Nurse [...] of Sleep Apnea: DeniesHematocritDate Value Ref Range Bvxmct2611/30/2017 32.3 (L) 34.1 - 44.9 % Final Platelet CountDate Value Ref Range Nidbdi3111/30/2017 193 182 - 369 thou/cmm Final Vitals: 1 830 139 143BP: 142/75 138/81Pulse: 75 81Resp:Temp: [...] as needed. Disp: Rfl:[facility].I have interviewed and examined the patient. I have reviewed the medicalrecord , pertinent consults and/or the pre-anesthesia evaluation,pertinent labs, and test results.Significant changes in the patient's condition since the History andPhysical, not otherwise documented in primary service progress notes: [facility] contains updated information obtained within 48 hours ofSurgery/Procedure.SIGNAT URE: Hema Cuellar APRN.STACKER TENDER PATIENT NAME: Zuleika LambATE: November 30, 2017 : 12:13 PM : 1990 Normal [facility] Auto Diffon 11-30-2017 Basophils Auto #/vol (Bld) 0.1 E3/mcL Normal 0.0-0.2 [facility] Comment on above: Order Comment: Order Added by Discern Expert. Performed By: #### 2 707436 ####KADEN BairdVcoDunf5128 [place] [address] Basophils/100 WBC Auto (Bld) 0.9 % Normal 0.0-2.0 [facility] Comment on above: Order Comment: Order Added by Discern Expert. Performed By: #### 2 464532 ####KADEN BairdMsuKpcz2493 [place] [address] Eos Absolute 0.1 E3/mcL Normal 0.0-0.7 [facility] Comment on above: Order Comment: Order Added by Discern Expert. Performed By: #### 2 087644 ####KADEN BairdMfkAemp9416 [place] [address] Eosinophils/100 leukocytes 1.0 % Normal 0.0-11.0 [facility] Comment on above: Order Comment: Order Added by Discern Expert. Performed By: #### 2 408190 ####KADEN BairdLhiPxgr2557 [place] [address] Lymphocytes 2.0 E3/mcL Normal 1.2-3.4 [facility] Comment on above: Order Comment: Order Added by Discern Expert. Performed By: #### 2 384305 ####KADEN [address] [place] [address] Lymphocytes/100 leukocytes 22.1 % Normal 20.0-55.0 [facility] Comment on above: Order Comment: Order Added by Discern Expert. Performed By: #### 2 723589 ####KADEN [address] [place] [address] Routt Absolute 0.7 E3/mcL Normal 0.0-0.7 [facility] Comment on above: Order Comment: Order Added by Discern Expert. Performed By: #### 2 759720 ####KADEN [address] [place] [address] Monocytes/100 leukocytes 7.5 % Normal 0.0-10.0 [facility] Comment on above: Order Comment: Order Added by Discern Expert. Performed By: #### 2 970122 ####KADEN [address] [place] [address] Neutro Absolute 6.1 E3/mcL Normal 1.4-6.5 [facility] Comment on above: Order Comment: Order Added by Discern Expert. Performed By: #### 2 106532 ####KADEN [address] [place] [address] Neutro Auto 68.5 % Normal 37.0-75.0 [facility] Comment on above: Order Comment: Order Added by Discern Expert. Performed By: #### 2 160124 ####KADEN [address] [place] [address] CBC w/ Auto Diffon 8 Erythrocyte distribution width Auto Ratio (RBC) 14.3 % Normal 11.5-14.5 [facility] Comment on above: Performed By: #### 2 300743 ####KADEN [address] [place] [address] Erythrocytes (RBC) 4.34 E6/mcL Normal 3.90-5.40 [facility] Comment on above: Performed By: #### 2 326787 ####KADEN [address] [place] [address] Hematocrit (HCT) 35.1 % Low 36.0-48.0 [facility] Comment on above: Performed By: #### 2 519916 ####KADEN [address] [place] [address] Hemoglobin mass conc (Bld) 11.6 g/dL Low 12.0-16.0 [facility] Comment on above: Performed By: #### 2 866462 ####KADEN [address] [place] [address] MCH 26.6 pg Low 27.0-31.0 [facility] Comment on above: Performed By: #### 2 443461 ####KADEN [address] [place] [address] MCHC mass conc (RBC) 32.9 g/dL Low 33.0-37.0 [facility] Comment on above: Performed By: #### 2 450525 ####KADEN [address] [place] [address] MCV 80.9 fL Normal 78.0-100.0 [facility] Comment on above: Performed By: #### 2 857114 ####KADEN [address] [place] [address] Platelet mean volume (PMV) 7.6 fL Normal 7.4-11.0 [facility] Comment on above: Performed By: #### 2 340362 ####KADEN [address] [place] [address] Platelets 217 E3/mcL Normal 130-400 [facility] Comment on above: Performed By: #### 2 855826 ####KADEN BairdCmpDxmo5472 [place] [address] WBC (Leukocytes) 8.8 E3/mcL Normal 3.6-11.0 [facility] Comment on above: Performed By: #### 2 487279 ####KADEN BairdIguNnml0329 [place] [address] CONSULTon 11-30-2017 CONSULT HNO ID: [id number] thor: Marie Lema (Res) LendeService: ObstetricsAuthor Type: [...] options.Patient received written information about post-delivery contraceptionoptions.Undec ideISTORY REVIEWPAST MEDICAL HISTORYDiagnosis Date- Club foot- alcohol [...] T0 L0 SAB1 TAB0 Ectopic0 Multiple0 Live Ggzyrr8Twaj of Baby 1: Not recorded Date: 2014 [...] pupils equal, no thyromegalyLungs: clearHeart: RR, S1, T1Zxlluwf: soft, nontender, no massesUterus: soft, NTExtremities: 1+ [...] Epi prn4. [place]5. [place] [address]. anomalies- prominent cisterna magna, bilateral periventrcularnodular heterotopia, [...] EF 55%.10. H/o maternal clubfoot-s/p repair as xdoecz56. H/o tobacco abuseSigned out to [facility] for deliveryDr. Amado reviewed with Dr. MaldonadoSIGNATURE: Marie Hassan DO PATIENT NAME: Zuleika LambATE: November 30, 2017 : 6:49 AM PAGER/CONTACT #: [phone] Normal [facility] HISTORY PHYSICALon 8 HISTORY PHYSICAL HNO ID: [id number] thor: Marie Lema (Res) LendeService: ObstetricsAuthor Type: [...] T0 L0 SAB1 TAB0 Ectopic0 Multiple0 Live Dvssju4Befj of Baby 1: Not recorded Date: 2014 [...] pupils equal, no thyromegalyLungs: clearHeart: RR, S1, Z5Vlwfelj: soft, nontender, no massesUterus: soft, NTExtremities: 1+ [...] Epi prn4. [place]5. [place] [address]. anomalies- prominent cisterna magna, bilateral periventrcularnodular heterotopia, [...] as . H/o tobacco abuseSigned out to [facility] for deliveryD/w Dr. AmadoSIGNATURE: Marie Hassan DO PATIENT NAME: Zuleika LambATE: November 30, 2017 : 6:49 AM PAGER/CONTACT #: [phone] Normal [facility] Hemogramon 11-30-2017 Erythrocyte distribution width Ratio (RBC) 13.6 % Normal 11.7-14.4 [facility] Comment on above: Performed By: #### C BC1 #### [facility] [address] [place] [address] Hematocrit Volume Fraction (Bld) 32.3 % Low 34.1-44.9 [facility] Comment on above: Performed By: #### C BC1 #### [facility] [address] [place] [address] Hemoglobin mass conc (Bld) 10.4 g/dL Low 11.2-15.7 [facility] Comment on above: Performed By: #### C BC1 #### [place] [address] MCH Entitic mass (RBC) 26.4 pg Normal 25.6-32.2 [facility] Comment on above: Performed By: #### C BC1 #### [place] [address] MCHC mass conc (RBC) 32.2 % Normal 31.6-34.8 [facility] Comment on above: Performed By: #### C BC1 #### [place] [address] MCV Entitic volume (RBC) 82.0 fL Normal 79.4-94.8 [facility] Comment on above: Performed By: #### C BC1 #### [facility] [address] [place] [address] Platelet mean volume Entitic volume (Bld) 9.9 fL Normal 9.4-12.3 [facility] Comment on above: Performed By: #### C BC1 #### [place] [address] Platelets #/vol (Bld) 193 thou/cmm Normal 182-369 [facility] Comment on above: Performed By: #### C BC1 #### [facility] [address] [place], [place] [address] RBC #/vol (Bld) 3.94 mil/cmm Normal 3.93-5.22 [facility] Comment on above: Performed By: #### C BC1 #### [facility] [address] [place], [place] [address] RDW SD 40.6 fl Normal 36.4-46.3 [facility] Comment on above: Performed By: #### C BC1 #### [facility] [address] [place], [place] [address] WBC #/vol (Bld) 9.85 thou/cmm Normal 3.98-10.04 [facility] Comment on above: Performed By: #### C BC1 #### [facility] [address] [place], [place] [address] LD NOTEon 11-30-2017 LD NOTE HNO ID: [id number] thor: Marie Lema (Res) LendeService: ObstetricsAuthor Type: ResidentType: LANDD Delivery NoteFiled: 11/30/2017 6:19 PMNote Text: -------Attestation signed by Serenity Maldonado MD at 12/01/2017 6:04 PMI saw and evaluated the patient. I reviewed the resident's note and agree,except that patient seen by [facility] (patient has FAS, fetus with multipleanomlaies) service, consult placed to [facility] for management of labor AND delivery.Essential primip presented at 39w with PROM, had Pugh balloon AND Pitocin foraugmentaion. Late in labor noted tachycardia that improved with IVFB ANDTylenol (mother rico had elevated temp but felt warm). [facility] [place] [facility] team for evaluation (was allowed tohave delivery to abdomen AND 30 sec delay for cord clamping). Pushed well AND hadSVD of a viable female (APGARS 8,9, weight of 3200g/7#1oz) over intactperineum. Uterus slightly boggy after delivery, responded to massage AND Pitocininfusion, EBL ~500cc.Serenity Maldonado MD ----OBSTETRICSDELIVERY SUMMARY - VAGINAL DELIVERYGestational Age at Delivery: 05m9nWftksry Date: 11/30/2017Service Time: 1799Keegan, Bg Zuleika Dillard [[id number]]Labor EventsRupture Date: 11/30/17Rupture Time: 224Rupture Type: PROMFluid [...] valvular insufficiency with EF this of 55%. Hiladalso has a history of former tobacco abuse.SIGNATURE: Marie Hassan DO PATIENT NAME: Zuleika LambATE: November 30, 2017 : 6:15 PM Normal [facility] NURSING PROGon 11-30-2017 NURSING PROG HNO ID: [id number] thor: Marguerite (Rn) ANEUDY Albarranervice: (none)Author Type: Registered NurseType: Nursing Progress NoteFiled: 11/30/2017 7:06 PMNote Text: INTRODUCED SELF TO PATIENT AND SUPPORT PERSONS. PLAN OF CARE DISCUSSED.ASSESSMENT PERFORMED. PATIENT DENIES COMPLAINTS. Normal [facility] NURSING PROG HNO ID: [id number] thor: Darcie (Rn) Sandy Landerosice: NursingAuthor Type: Registered NurseType: Nursing Progress NoteFiled: 11/30/2017 10:03 AMNote Text:Patient up to shower for comfort. Boyfriend at side. On telemetrymonitors. RN remains in room. FHR difficult to maintain continuoustracing Normal [facility] NURSING PROG HNO ID: [id number] Author: Norah MagañaRn) KARRI Eastman Service: Nursing Author Type: Registered Nurse Type: Nursing Progress Note Filed: 11/30/2017 7:18 AM Note Text: Report given to Darcie DURAN and care transferred at this time. Normal [facility] PROCEDUREon 11-30-2017 PROCEDURE HNO ID: [id number] thor: Aaron (Chiara) José Miguele: AnesthesiologyAuthor Type: Nurse AnesthetistType: ProceduresFiled: [...] Catheter in Epidural Space: 5 cmInterspace: approximately L2-Q0Gwsqte of Attempts: 1Wet Tap Complication: NoDural Puncture [...] nurses' documentation for additional vitals.SIGNATURE: Hema Cuellar APRN.STACKER TENDER PATIENT NAME: Zuleika LambATE: November 30, 2017 : 12:27 PM PAGER/CONTACT #: [facility] PROGRESSon 11-30-2017 PROGRESS HNO ID: [id number] thor: Marie Lema (Res) LendeService: ObstetricsAuthor Type: ResidentType: Progress NotesFiled: 11/30/2017 5:04 PMNote Text:UpdatePatient is pushing in the OR. Cat I FHRT with baseline around 160s. updated and in house.Franki Neri 2017 5:04 PM [facility] PROGRESS HNO ID: [id number] Author: Darcie (Rn) KARRI Landeros Service: Nursing Author Type: Registered Nurse Type: Progress Notes Filed: 11/30/2017 3:29 PM Note Text: Patient feeling pressure, cervical exam 9.5 cm. NICU notified. Patient feels warm, but temp 36.9. [facility] PROGRESS HNO ID: [id number] thor: Marie Lema (Res) LendeService: ObstetricsAuthor Type: [...] pt comfortable4. s/p FB5. [place] [address]. anomalies- prominent cisterna magna, bilateral periventrcularnodular heterotopia, [...] EF 55%.10. H/o maternal clubfoot-s/p repair as wsiwnr82. H/o tobacco abuse12. Cat II- Isolate late decelerations. Moderate variability. Continuingto make cervical change. Not on Cat II protocol.SIGNATURE: Marie Hassan DO PATIENT NAME: Zuleika LambATE: November 30, 2017 : 1:35 PM PAGER/CONTACT #: [phone] Normal [facility] PROGRESS HNO ID: [id number] thor: Yolanda (Res) SnyderService: ObstetricsAuthor Type: ResidentType: [...] pt comfortable4. s/p FB5. [place] [address]. anomalies- prominent cisterna magna, bilateral periventrcularnodular heterotopia, [...] EF 55%.10. H/o maternal clubfoot-s/p repair as mpqsee69. H/o tobacco abuseSIGNATURE: Yolanda Barbosa DO PATIENT NAME: Zuleika LambATE: November 30, 2017 : 1:11 PM PAGER/CONTACT #: [phone] Normal [facility] PROGRESS HNO ID: [id number] thor: Yolanda Almonteervice: ObstetricsAuthor Type: ResidentType: Progress [...] Pit per protocol3. [place] [address]. [place] [address]. anomalies- prominent cisterna magna, bilateral periventrcularnodular heterotopia, [...] EF 55%.10. H/o maternal clubfoot-s/p repair as lsafnv75. H/o tobacco abuseSIGNATURE: Yolanda Barbosa DO PATIENT NAME: Zuleika BecerrilnDATE: November 30, 2017 : 11:05 AM PAGER/CONTACT #: [phone] [facility] PROGRESS HNO ID: [id number] Author: Darcie (Rn) Tigre RN Service: Nursing Author Type: Registered Nurse Type: Progress Notes Filed: 11/30/2017 10:35 AM Note Text: Unable to find labwork for chart. [facility] PROGRESS HNO ID: [id number] thor: Marie Lema (Res) LendeService: ObstetricsAuthor Type: [...] RN)Rupture Time: 0225 (11/30/17 0853 : Darcie MagañaRn) Tigre RN)Amniotic Fluid Color: Clear (11/30/17 0853 : Darcie (Rn) Tigre RN)Additional Findings: NoneFETAL MONITORINGFHT: 135s Moderate/acelerations present/decelerations absentToco: 2-4 minutesCategory: ILABSDiagnostic tests reviewed for today's visit: Most recent labs and imagingresults.Assessment/ Plan27 year old EGA:39w0d. Admitted for augmentation for PROM1. GBS-2. Pit per protocol3. [place] [address]. [place] [address]. anomalies- prominent cisterna magna, bilateral periventrcularnodular heterotopia, [...] 30, 2017 : 10:31 AM PAGER/CONTACT #: [phone] [facility] PROGRESS HNO ID: [id number] thor: Darcie (Rn) Tigre, RNService: NursingAuthor Type: Registered NurseType: Progress NotesFiled: 11/30/2017 10:13 AMNote Text:Patient remains in shower. RN and boyfriend at side. EFM on telemetryand adjusted while patient in shower. Difficult to keep baby on. Normal [facility] PROGRESS HNO ID: [id number] thor: Yolanda (Res) SnyderService: ObstetricsAuthor Type: ResidentType: Progress NotesFiled: 11/30/2017 7:35 AMNote Text:In to place FB. Pt tolerated procedure well. Continues to leak clearfluid. Pt uncomfortable with contractions.Cat I FHT, reactive with accelsToco: 2-5 minsHeather Romina, PGY-1Obstetrics and GynecologyPager [phone]/7:34 AM Normal [facility] Type and Screenon 11-30-2017 ABO group Nom (Bld) A Normal [facility] Comment on above: Performed By: #### T &S #### [place] [address] Comment See Below Normal [facility] Comment on above: Result Comment: Scre en &/or Xmatch expires in 3 days at 12 midnight. Redraw patient at that time. Performed By: #### T &S #### [place] [address] RH Type Positive Normal [facility] Comment on above: Performed By: #### T &S #### [place] [address] Progress Noteon 11-28-2017 Metal Stamping Machine Operator Authentication Interface Message Text Routine VisitSubjective: Zuleika Villalta is being seen today for her obstetrical visit. She is at 38n2zkskwroxec. Patient reports no complaints. Movement: normal. She [...] Serial growth ultrasounds every 4 weeks.DELIVERY PLANHospital: [facility] CenterInduction at 39 weeks; CYTOTEC IOL 12-02-17 at 5 pm at [facility]. Pre-Procedure formdone (CG)GBS culture: neg [...] IVC/SVC S/P echo [facility] would like her follow up and contraception with Dr. Ivan.The total patient time of the visit was 15 minutes, of which greater than 50% ofthe time was spent counseling and coordinating care. Normal [facility] Progress Noteon 11-22-2017 Metal Stamping Machine Operator Authentication Interface Message Text FTC plan of care faxed to [facility] in event pt would arrive for urgent management. Normal [facility] Progress Noteon 11-21-2017 Metal Stamping Machine Operator Authentication Interface Message Text Routine VisitSubjective: Zuleika Villalta is being seen today for her obstetrical visit. She is at [id number]. Patient reports that she went to [facility] last night due toconcerns for labor. She [...] Serial growth ultrasounds every 4 weeks.DELIVERY PLANHospital: [facility] 39 weeks; CYTOTEC IOL 12-02-17 at 5 pm at [facility]. Pre-Procedure formdone (CG)GBS culture: neg [...] on12/02/17.Oksana amado MD Normal [facility] Progress Noteon 11-12-2017 Metal Stamping Machine Operator Authentication Interface Message Text Call from [facility] that pt presented there in labor. [facility] plan of care and ACOGs faxed by Toan Chen. Provided after hours MFM number provided. Normal [facility] Group B Strep Cultureon 10-16 Group B Strep Culture Group B Strep Cult ure: No Group B Streptococci isolated. Source: VAG Collected: 11/07/17 09:00 Site: Vaginal/Rectal Received : 11/07/17 22:01Group B Strep Culture FINAL 11/10/17 08:34 No Group B Streptococci isolated. Normal [facility] Comment on above: Performed By: #### G RBS ####[facility]'s [facility] [place], [place] [phone] Progress Noteon 11-07-2017 Metal Stamping Machine Operator Authentication Interface Message Text Routine VisitSubjective: Zuleika Villalta is being seen today for her obstetrical visit. She is at [id number]. Patient reports occasional nausea. No emesis. She [...] She is [facility]. Supervision of other high risk , antepartum 10/08/2017 PLAN OF CAREMD/OB APPOINTMENTSHow often should patient be evaluated? q 2 weeks from 32 to 36 weeks thenweekly until deliveryWork restrictions: noneFETAL EVALUATIONAntenatal surveillance: weekly BPPs starting at 32 weeks.Ultrasound: Serial growth ultrasounds every 4 weeks.DELIVERY PLANHospital: [facility] CenterInduction at 39 weeksGBS culture: collected and [...] OB visit and BPP.Oksana Amado MD Normal [facility] Progress Noteon 10-24-2017 Metal Stamping Machine Operator Authentication Interface Message Text Routine [...] Serial growth ultrasounds every 4 weeks.DELIVERY PLANHospital: [facility] CenterInduction at 39 weeksGBS culture:Contraception: Considering LARC [...] IVC/SVC S/P echo in the [facility] POC reviewedFollow up 2 weeks.The total patient time of the visit was 15 minutes, of which greater than 50% ofthe time was spent counseling and coordinating care.Marco Antonio Antonio, Normal [facility] Progress Noteon 10-15-2017 Metal Stamping Machine Operator Authentication Interface Message Text Ped selection made. Updated prenatals Normal [facility] Progress Noteon 10-08-2017 Metal Stamping Machine Operator Authentication Interface Message Text Thank [...] size. There was a patent foramen ovale, zlkppiefv-ln-hvac shunt.Tricuspid valve:Normal tricuspid valve. There was normal [...] fetuses and in fetuses with CHD and [id number], the ratio being below 0.3 )Impression and recommendations.1) Abnormal 3-vessel view, ascending aorta was moderately dilated. 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 thymic thoracic ratio (TT-ratio)=0.1 ( TT-ratio 0.44 in normal fetuses and in fetuses with CHD and jidbsavlpadrt24j45, the ratio being below 0.3 )5) Normal [...] earlier ifcardiac condition/status changes in any way. [place] follow up and treatmentshould be determined on the basis of the findings on the initial echocardiogram.Counseling and/or coordination of care was greater than 35 minutes which is morethan 50% of the total time of 60 minutes spent on the encounter. Normal [facility] Metal Stamping Machine Operator Authentication Interface Message Text Initial [...] Serial growth ultrasounds every 4 weeks.DELIVERY PLANHospital: [facility] CenterInduction at 39 weeksGBS culture:Contraception:TDAP recommended Constipation [...] weeks for OB visit and BPP in [place].Oksana Amado MD Normal [facility] Cytogenomic Microarray Nivia sis of Bloodon 09-10-2017 Cytogenomic Microarray Analysis of Blood SEE BELOW Normal [facility] Comment on above: Result Comment: SPEC IMEN: BLOODCLINICAL INFORMATION: Learning disability[F81.9]TEST: CYTOGENOMIC MICROARRAY ANALYSISRESULT SUMMARY:Normal femaleNOMENCLATURE:arr(1-22,X)v7SBVIYCKTOPTVAS & COMMENTS:The cytogenomics microarray analysis indicated no [...] whole genome microarray analysis was performed the FDA-clearedPromethean Power Systems(REnumeral Biomedical Dx platform, which contains approximately 2.7million markers, including 1,953,246 unique non-polymorphic copy numberprobes and 743,304 single nucleotide polymorphism (SNP) probes. Thegenome-wide functional resolution of this assay is approximately 25 kbfor deletions and 50 kb for duplications. This microarray andassociated software (Chromosome Analysis Suite Dx) were manufactured [employer] and used by the [facility]osticsLabor[facility] of [facility] for the purpose ofidentifying DNA copy number [...] further information regarding intendeduse and limitations, see [email or web address].Note: The Cytogenetics Laboratory has this patient's blood [...] testing. 09/19/2017 BIGG GARCIA, PH.D., [facility], [facility] 09/19/2017 Performed By: #### M [facility] ####[facility] of [address] [phone] MRI (SINGLE)on 018 MRI (SINGLE) MRI (SINGLE)CL [...] Dr. AJ CAMILO at 09/10/2017 10:21 Normal [facility]'s [facility] Progress Noteon 09-10-2017 Metal Stamping Machine Operator Authentication Interface Message Text The total patient time of the visit was 15 minutes, of which greater than 50% of the time was spent counseling and coordinating care. Normal [facility] Auto Diffon 09-03-2017 Basophils Auto #/vol (Bld) 0.1 E3/mcL Normal 0.0-0.2 [facility] Comment on above: Order Comment: Order Added by Anamaria Expert. Performed By: #### 2 [id number] ####KADEN [address] [place] [address] Basophils/100 WBC Auto (Bld) 0.5 % Normal 0.0-2.0 [facility] Comment on above: Order Comment: Order Added by Anamaria Expert. Performed By: #### 2 [id number] ####KADEN [address] [place] [address] Eos Absolute 0.0 E3/mcL Normal 0.0-0.7 [facility] Comment on above: Order Comment: Order Added by Anamaria Expert. Performed By: #### 2 136155 ####KADEN [address] [place] [address] Eosinophils/100 leukocytes 0.4 % Normal 0.0-11.0 [facility] Comment on above: Order Comment: Order Added by Anamaria Expert. Performed By: #### 2 959998 ####KADEN [address] [place] [address] Lymphocytes 1.3 E3/mcL Normal 1.2-3.4 [facility] Comment on above: Order Comment: Order Added by Discern Expert. Performed By: #### 2 646779 ####KADEN [address]kx[address]xs[address] [place] [address] Lymphocytes/100 leukocytes 13.1 % Low 20.0-55.0 [facility] Comment on above: Order Comment: Order Added by Anamaria Expert. Performed By: #### 2 808834 ####KADEN [address]kxf[address] [place] [address] Routt Absolute 0.4 E3/mcL Normal 0.0-0.7 [facility] Comment on above: Order Comment: Order Added by Anamaria Expert. Performed By: #### 2 052933 ####KADEN [address] [place] [address] Monocytes/100 leukocytes 4.3 % Normal 0.0-10.0 [facility] Comment on above: Order Comment: Order Added by Discern Expert. Performed By: #### 2 046756 ####KADEN [address] [place] [address] Neutro Absolute 8.4 E3/mcL High 1.4-6.5 [facility] Comment on above: Order Comment: Order Added by Discern Expert. Performed By: #### 2 460488 ####KADEN [address] [place] [address] Neutro Auto 81.7 % High 37.0-75.0 [facility] Comment on above: Order Comment: Order Added by Discern Expert. Performed By: #### 2 495182 ####KADEN [address] [place] [address] CBC w/ Auto Diffon 8 Erythrocyte distribution width Auto Ratio (RBC) 13.1 % Normal 11.5-14.5 [facility] Comment on above: Performed By: #### 2 519088 ####KADEN [address] [place] [address] Erythrocytes (RBC) 3.90 E6/mcL Normal 3.90-5.40 [facility] Comment on above: Performed By: #### 2 157471 ####KADEN [address] [place] [address] Hematocrit (HCT) 34.7 % Low 36.0-48.0 [facility] Comment on above: Performed By: #### 2 924018 ####KADEN [address] [place] [address] Hemoglobin mass conc (Bld) 11.8 g/dL Low 12.0-16.0 [facility] Comment on above: Performed By: #### 2 559953 ####KADEN [address] [place] [address] MCH 30.3 pg Normal 27.0-31.0 [facility] Comment on above: Performed By: #### 2 635325 ####KADEN [address] [place] [address] MCHC mass conc (RBC) 34.2 g/dL Normal 33.0-37.0 [facility] Comment on above: Performed By: #### 2 919704 ####KADEN [address] [place] [address] MCV 88.8 fL Normal 78.0-100.0 [facility] Comment on above: Performed By: #### 2 172065 ####KADEN [address] [place] [address] Platelet mean volume (PMV) 7.3 fL Low 7.4-11.0 [facility] Comment on above: Performed By: #### 2 864227 ####KADEN [address] [place] [address] Platelets 218 E3/mcL Normal 130-400 [facility] Comment on above: Performed By: #### 2 662503 ####KADEN [address] [place] [address] WBC (Leukocytes) 10.2 E3/mcL Normal 3.6-11.0 [facility] Comment on above: Performed By: #### 2 871163 ####KADEN [address] [place] [address] Gest Scr Glu 1 Hron 09-04-19 18 Glucose mass conc 113 mg/dL Normal 70-140 [facility] Comment on above: Performed By: #### 2 768579 ####KADEN [address] [place] [address] FISH Probeon 08-13-2017 Protein mass conc SEE BELOW Normal [facility] Comment on above: Result Comment: SPEC IMEN: BLOOD - [id number] INFORMATION:TEST: FISH Analysis of the DiGeorge/VCFS Region [...] Metaphase images: 2The Vysis LSI DARREN Spectrum [place] Probe contains the DARREN gene (3'non-coding region of TUPLE1, O47I726, and [id number]. The Vysis LSI ARSAspectrum Green Probe includes [...] the Cytogenetics Laboratory of [facility]. It hasnot been cleared or [...] complexity clinical laboratorytesting.REFERENCE: Rhonda NICOLE, Ruano E, Golhome M, Weatherford RV. Fluorescence in situhybridization detection of chromosome 22q11.2 microdeletions invelocardiofacial syndrome patients with widely variable manifestations. Am J Med Barbara 66:250-256,1995. BIGG GARCIA, PH.D., DAB, [facility] 08/16/2017 Performed By: #### F MARIA ####[address] [phone] Progress Noteon 08-13-2017 Metal Stamping Machine Operator Authentication Interface Message Text Met with patient and FOB, Aaron Tobias for enlarged aortic root. Medical, surgical and [...] understanding of findingsWork History: unemployed. Information on [facility] services given.Consent to share information with [facility] team, OB and ivf embryologist signed. 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 Currently with Dr. Shekhar Dyson.Director Of Digital Marketing is undecided. [facility] list provided and discussed importance ofselection [...] and coordinating care. Normal [facility] Metal Stamping Machine Operator Authentication Interface Message Text Thank [...] size. There was a patent foramen ovale, urtjrdzmr-om-asig shunt.Tricuspid valve:Normal tricuspid valve. There was normal [...] on the encounter. Normal [facility] Progress Noteon 07-18-2017 Metal Stamping Machine Operator Authentication Interface Message Text [facility] [...] no palpitations. She usually doesnot see a supply manager, but did have a recent echo due [...] Stroke Maternal Grandmother Heart Disease Maternal Grandmother [place] Clotting Disorder Maternal Grandfather Miscarriages / Stillbirths [...] child 07/18/2017 Consider evaluation with social media specialist to assess for any needs duringpregnancy or after. Will have genetic consult with [facility] evaluation. cardiac anomaly complicating , antepartum 07/18/2017 Dilated aortic root seen on ultrasound along with large umbilical cordvarix, dolichocephaly DW Dr. Zazueta, verbal order to refer to [facility] Will be scheduled with pediatric cardiology. Also, patient and family members have a history of learning disabilities,including an individual learning plan in school. She will talk to her familymembers and bring as much information as is available for her genetics consult.She has transportation to [place] and is willing to be seen [facility].The total patient time of the visit was 30 minutes, of which was greater than50% of the time was spent counseling and coordinating care. Normal [facility] IGP W/hpv Rfx [id number] 05-07 Diagnosis: See Ref Lab Report Normal [facility] Comment on above: Order Comment: Thin Prep. Performed By: #### 2 [id number] ####KADEN [address] [place] [address] C Urineon 05-03-2017 C Urine Final Report: Normal skin alonso isolated Normal [facility] Comment on above: Performed By: #### 2 866756 ####KADEN [address]ai[address]mlu[address] [place] [address] RPRon 05-03-2017 RPR Ql Non-Reactive Normal Non-Reacti ve [facility] Comment on above: Performed By: #### 2 602297 ####KADEN [address]airdJvmJrhg[address] [place] [address] Hep Bs Agon 05-02-2017 BSA (Body Surface Area) Negative Normal Negative [facility] Comment on above: Result Comment: Perf ormed At: [facility] [address] [place], [place] [id number] Vincent PhD Ph:[phone] Performed By: #### 2 187449 ####KADEN [address]kg[address] [place] [address] ABO/Rh Echoon 05-01-2017 ABO/Rh E Interp... Positive Normal [facility] Comment on above: Performed By: #### 2 400559 ####KADEN [address]bf[address] [place] [address] Antibody Screen Cap...on Screen Interp... Negative Normal [facility] Comment on above: Performed By: #### 2 701996 ####KADEN [address] [place] [address] Auto Diffon 05-01-2017 Basophils Auto #/vol (Bld) 0.0 E3/mcL Normal 0.0-0.2 [facility] Comment on above: Order Comment: Order Added by Discern Expert. Performed By: #### 2 821096 ####KADEN Urinalysis Manual [address] [place] [address] Basophils/100 WBC Auto (Bld) 0.4 % Normal 0.0-2.0 [facility] Comment on above: Order Comment: Order Added by Discern Expert. Performed By: #### 2 514783 ####KADEN Urinalysis Manual [address] [place] [address] Eos Absolute 0.1 E3/mcL Normal 0.0-0.7 [facility] Comment on above: Order Comment: Order Added by Discern Expert. Performed By: #### 2 568470 ####KADEN Urinalysis Manual [address] [place] [address] Eosinophils/100 leukocytes 0.7 % Normal 0.0-11.0 [facility] Comment on above: Order Comment: Order Added by Discern Expert. Performed By: #### 2 146043 ####KADEN Urinalysis Manual [address] [place] [address] Lymphocytes 1.8 E3/mcL Normal 1.2-3.4 [facility] Comment on above: Order Comment: Order Added by Discern Expert. Performed By: #### 2 242355 ####KADEN Urinalysis Manual [address] [place] [address] Lymphocytes/100 leukocytes 17.1 % Low 20.0-55.0 [facility] Comment on above: Order Comment: Order Added by Discern Expert. Performed By: #### 2 740011 ####KADEN Urinalysis Manual [address] [place] [address] Routt Absolute 0.5 E3/mcL Normal 0.0-0.7 [facility] Comment on above: Order Comment: Order Added by Discern Expert. Performed By: #### 2 020106 ####KADEN [place] [address] Monocytes/100 leukocytes 5.0 % Normal 0.0-10.0 [facility] Comment on above: Order Comment: Order Added by Discern Expert. Performed By: #### 2 114154 ####KADEN Urinalysis Manual [address] [place] [address] Neutro Absolute 8.0 E3/mcL High 1.4-6.5 [facility] Comment on above: Order Comment: Order Added by Discern Expert. Performed By: #### 2 917903 ####KADEN [place] [address] Neutro Auto 76.8 % High 37.0-75.0 [facility] Comment on above: Order Comment: Order Added by Discern Expert. Performed By: #### 2 185057 ####KADEN Urinalysis Manual [address] [place] [address] CBC w/ Auto Diffon 7 Erythrocyte distribution width Auto Ratio (RBC) 15.2 % High 11.5-14.5 [facility] Comment on above: Performed By: #### 2 705131 ####KADEN [place] [address] Erythrocytes (RBC) 4.90 E6/mcL Normal 3.90-5.40 [facility] Comment on above: Performed By: #### 2 345106 ####KADEN Urinalysis Manual [address] [place] [address] Hematocrit (HCT) 41.1 % Normal 36.0-48.0 [facility] Comment on above: Performed By: #### 2 335997 ####KADEN Urinalysis Manual [address] [place] [address] Hemoglobin mass conc (Bld) 13.5 g/dL Normal 12.0-16.0 [facility] Comment on above: Performed By: #### 2 273436 ####KADEN Urinalysis Manual [address] [place] [address] MCH 27.5 pg Normal 27.0-31.0 [facility] Comment on above: Performed By: #### 2 958035 ####KADEN Urinalysis Manual [address] [place] [address] MCHC mass conc (RBC) 32.8 g/dL Low 33.0-37.0 [facility] Comment on above: Performed By: #### 2 681361 ####KADEN Urinalysis Manual [address] [place] [address] MCV 83.9 fL Normal 78.0-100.0 [facility] Comment on above: Performed By: #### 2 005777 ####KADEN Urinalysis Manual [address] [place] [address] Platelet mean volume (PMV) 8.0 fL Normal 7.4-11.0 [facility] Comment on above: Performed By: #### 2 816978 ####KADEN Urinalysis Manual [address] [place] [address] Platelets 246 E3/mcL Normal 130-400 [facility] Comment on above: Performed By: #### 2 777159 ####KADEN Urinalysis Manual [address] [place] [address] WBC (Leukocytes) 10.4 E3/mcL Normal 3.6-11.0 [facility] Comment on above: Performed By: #### 2 705419 ####KADEN Urinalysis Manual [address] [place] [address] Chlamydia GC by PCRon 2016 Chlamydia by PCR. Not Detected Normal Not Detected [facility] Comment on above: Result Comment: Xper t CT/NG Assay performance has not been evaluated in patients less than 14 years of age. Performed By: #### 2 171878 ####KADENMorelia [address] [place] [address] Gonorrhoeae by PCR Not Detected Normal Not Detected [facility] Comment on above: Result Comment: Xper t CT/NG Assay performance has not been evaluated in patients less than 14 years of age. Performed By: #### 2 533565 ####KADENMorelia [address]SdvTvdh[address] [place] [address] HIV-1/2 Ag/Abon 05-01-2017 HIV-1/2 Ag/Ab Non-Reactive Normal Non-Reacti ve [facility] Comment on above: Performed By: #### 2 852413 ####KADEN [place] [address] Rubella IgG Lvlon 05-01-2017 Rubella IgG Lvl 50.8 (POS) Normal [facility] Comment on above: Result Comment: <10I U/ml NON REACTIVE: NOT [id number] IU/ml RUBELLA SPECIFIC AB PRESENT, EVALUATEFURTHER TO DETERMINE IMMUNE STATUS >15 IU/ml REACTIVE, IMMUNE Performed By: #### 2 690767 ####KADEN [address] [place] [address] Auto Diffon 04-22-2017 Basophils Auto #/vol (Bld) 0.1 E3/mcL Normal 0.0-0.2 [facility] Comment on above: Order Comment: Order Added by Discern Expert. Performed By: #### 2 258024 ####KADEN [place] [address] Basophils/100 WBC Auto (Bld) 0.6 % Normal 0.0-2.0 [facility] Comment on above: Order Comment: Order Added by Discern Expert. Performed By: #### 2 225710 ####KADEN [place] [address] Eos Absolute 0.0 E3/mcL Normal 0.0-0.7 [facility] Comment on above: Order Comment: Order Added by Discern Expert. Performed By: #### 2 908836 ####KADEN Urinalysis Manual [address] [place] [address] Eosinophils/100 leukocytes 0.2 % Normal 0.0-11.0 [facility] Comment on above: Order Comment: Order Added by Discern Expert. Performed By: #### 2 908128 ####KADEN Urinalysis Manual [address] [place] [address] Lymphocytes 1.5 E3/mcL Normal 1.2-3.4 [facility] Comment on above: Order Comment: Order Added by Discern Expert. Performed By: #### 2 715367 ####KADEN Urinalysis Manual [address] [place] [address] Lymphocytes/100 leukocytes 10.8 % Low 20.0-55.0 [facility] Comment on above: Order Comment: Order Added by Discern Expert. Performed By: #### 2 430163 ####KADEN Urinalysis Manual [address] [place] [address] Routt Absolute 0.6 E3/mcL Normal 0.0-0.7 [facility] Comment on above: Order Comment: Order Added by Discern Expert. Performed By: #### 2 154925 ####KADEN Urinalysis Manual [address] [place] [address] Monocytes/100 leukocytes 4.4 % Normal 0.0-10.0 [facility] Comment on above: Order Comment: Order Added by Discern Expert. Performed By: #### 2 750012 ####KADEN Urinalysis Manual [address] [place] [address] Neutro Absolute 11.3 E3/mcL High 1.4-6.5 [facility] Comment on above: Order Comment: Order Added by Discern Expert. Performed By: #### 2 725970 ####KADEN Urinalysis Manual [address] [place] [address] Neutro Auto 84.0 % High 37.0-75.0 [facility] Comment on above: Order Comment: Order Added by Discern Expert. Performed By: #### 2 218535 ####KADEN Urinalysis Manual [address]acph[address] [place] [address] BMPon 04-22-2017 BUN/Creatinine Ratio Unable to calc Normal 5.4-30.0 [facility] Comment on above: Performed By: #### 2 571217 ####KADEN Urinalysis Manual [address]ws[address] [place] [address] Creatinine mg/dL Low 0.6-1.3 [facility] Comment on above: Performed By: #### 2 510333 ####KADEN Urinalysis Manual [address] [place] [address] Urea nitrogen 7 mg/dL Normal 7-18 [facility] Comment on above: Performed By: #### 2 [id number] ####KADEN Urinalysis Manual [address]strolq[address] [place] [address] Calcium 9.6 mg/dL Normal 8.4-10.2 [facility] Comment on above: Performed By: #### 2 783388 ####KADEN Urinalysis Manual [address]wv[address] [place] [address] Chloride 103 mmol/L Normal 98-107 [facility] Comment on above: Performed By: #### 2 368511 ####KADEN Urinalysis Manual Hgvyaxwysn[address] [place] [address] CO2 21.7 mmol/L Low 24.0-30.0 [facility] Comment on above: Performed By: #### 2 251411 ####KADEN Urinalysis Manual Ojjtvljltq[address] [place] [address] Glucose mass conc 89 mg/dL Normal 70-99 [facility] Comment on above: Performed By: #### 2 569454 ####KADEN Urinalysis Manual Sgzhzampxd3847 [place] [address] Potassium molar conc 3.6 mmol/L Normal 3.5-5.1 [facility] Comment on above: Performed By: #### 2 477045 ####KADEN Urinalysis Manual C[address]bsgorz[address] [place] [address] Sodium 136 mmol/L Normal 136-145 [facility] Comment on above: Performed By: #### 2 346216 ####KADEN Urinalysis Manual Euzxyuqpuc[address] [place] [address] CBC w/ Auto Diffon 7 Erythrocyte distribution width Auto Ratio (RBC) 14.8 % High 11.5-14.5 [facility] Comment on above: Performed By: #### 2 533195 ####KADEN Urinalysis Manual Jlmmvjqij[address] [place] [address] Erythrocytes (RBC) 4.96 E6/mcL Normal 3.90-5.40 [facility] Comment on above: Performed By: #### 2 847172 ####KADEN Urinalysis Manual Zbalfqweap[address] [place] [address] Hematocrit (HCT) 40.9 % Normal 36.0-48.0 [facility] Comment on above: Performed By: #### 2 241523 ####KADEN Urinalysis Manual Jagqlsffab6[address] [place] [address] Hemoglobin mass conc (Bld) 13.5 g/dL Normal 12.0-16.0 [facility] Comment on above: Performed By: #### 2 193715 ####KADEN Urinalysis Manual Rfpuhgmsex[address] [place] [address] MCH 27.2 pg Normal 27.0-31.0 [facility] Comment on above: Performed By: #### 2 659215 ####KADEN Urinalysis Manual Hrfnvmbzbl[address] [place] [address] MCHC mass conc (RBC) 33.0 g/dL Normal 33.0-37.0 [facility] Comment on above: Performed By: #### 2 977280 ####KADEN Urinalysis Manual Fqoldezfpf[address] [place] [address] MCV 82.4 fL Normal 78.0-100.0 [facility] Comment on above: Performed By: #### 2 952233 ####KADEN Urinalysis Manual Aojnwpynst[address] [place] [address] Platelet mean volume (PMV) 8.0 fL Normal 7.4-11.0 [facility] Comment on above: Performed By: #### 2 023207 ####KADEN Urinalysis Manual Clbpryxhwi[address] [place] [address] Platelets 237 E3/mcL Normal 130-400 [facility] Comment on above: Performed By: #### 2 592779 ####KADEN Urinalysis Manual Aiqexepwco0852 [place] [address] WBC (Leukocytes) 13.5 E3/mcL High 3.6-11.0 [facility] Comment on above: Performed By: #### 2 955680 ####KADEN Urinalysis Manual Bezgekkduz2597 [place] [address] UA Completeon 04-22-2017 UA Blood Negative Normal Negative [facility] Comment on above: Performed By: #### 2 175421 ####KADEN Urinalysis Manual Kkvhvpxixt[address] [place] [address] UA Ascorbic Acid 40 mg/dL High <=19 [facility] Comment on above: Performed By: #### 2 532527 ####KADEN Urinalysis Manual Qqrbjwwlkr7[address] [place] [address] UA Bacteria 3+ /HPF Abnormal None [facility] Comment on above: Performed By: #### 2 154093 ####KADEN Urinalysis Manual Zjbyrekxwq[address] [place] [address] UA Clarity SltCloudy Abnormal Clear [facility] Comment on above: Performed By: #### 2 467154 ####KADEN Urinalysis Manual Iisdsygwts[address] [place] [address] UA Leuk Est Negative Normal Negative [facility] Comment on above: Performed By: #### 2 167165 ####KADEN Urinalysis Manual Hzcxtkkswy9[address] [place] [address] UA Mucous Few Abnormal Trace [facility] Comment on above: Performed By: #### 2 642349 ####KADEN Urinalysis Manual Xczcpjocil9973 [place] [address] UA Nitrite Negative Normal Negative [facility] Comment on above: Performed By: #### 2 480122 ####KADEN Urinalysis Manual Ovumksntha54[address] [place] [address] UA pH 8.0 Normal 4.6-8.0 [facility] Comment on above: Performed By: #### 2 007054 ####KADEN Urinalysis Manual Kmkgibxlrs4473 [place] [address] UA Protein Negative Normal Negative [facility] Comment on above: Performed By: #### 2 298824 ####KADEN Urinalysis Manual Kcepfykhvt[address] [place] [address] UA Spec Grav 1.012 Normal 1.003-1.03 0 [facility] Comment on above: Performed By: #### 2 556490 ####KADEN Urinalysis Manual Cqrglebhxu2114[address] [place] [address] UA Squam Epithelial 0-5 Normal 0-5 [facility] Comment on above: Performed By: #### 2 989251 ####KADEN Urinalysis Manual Sxhobgykjn[address] [place] [address] UA Urobilinogen Negative Normal [facility] Comment on above: Performed By: #### 2 478577 ####KADEN Urinalysis Manual Luyxpdxioi89[address] [place] [address] UA WBC 0-5 Normal 0-5 [facility] Comment on above: Performed By: #### 2 654906 ####KADEN Urinalysis Manual [address] [place] [address] Urine, color Yellow Normal Yellow [facility] Comment on above: Performed By: #### 2 658760 ####KADEN Urinalysis Manual [address]hxrg[address] [place] [address] Urine, glucose Negative Normal Negative [facility] Comment on above: Performed By: #### 2 316834 ####KADEN Urinalysis Manual Gojtnikljv8[address] [place] [address] Urine, ketones presence 1+ Abnormal Negative [facility] Comment on above: Performed By: #### 2 121097 ####KADEN Urinalysis Manual Vpfdqvhxdr9[address] [place] [address] Urine, urobilinogen Negative Normal Negative [facility] Comment on above: Performed By: #### 2 233548 ####KADEN Urinalysis Manual Axexjzrewd[address] [place], [place] [address] eGFRon 04-22-2017 eGFR AA >60 Normal [facility] Comment on above: Order Comment: Order added by Discern Expert. Performed By: #### 2 800555 ####KADEN Urinalysis Manual Ysrpixsbwi9625 [place] [address] eGFR (non-black) mL/min/{1.73_m2} Normal [facility] Comment on above: Order Comment: Order added by Discern Expert. Performed By: #### 2 612122 ####KADEN Urinalysis Manual Vedjksaakw1378 [place] [address] C Urineon 04-20-2017 C Urine Final Report: Normal skin alonso isolated Normal [facility] Comment on above: Performed By: #### 2 435278 ####KADEN Urinalysis Manual Wjueipbcie4739 [place] [address] BMPon 04-18-2017 BUN/Creatinine Ratio 15.0 ratio Normal 5.4-30.0 [facility] Comment on above: Performed By: #### 2 347974 ####KADEN BairdSrqUsbv8034 [place] [address] Creatinine 0.6 mg/dL Normal 0.6-1.3 [facility] Comment on above: Performed By: #### 2 095965 ####KADENMorelia BairdRwoYzfb2777 [place] [address] Urea nitrogen 9 mg/dL Normal 7-18 [facility] Comment on above: Performed By: #### 2 940386 ####KADENMorelia BairdDqlTxrb1212 [place] [address] Calcium 9.6 mg/dL Normal 8.4-10.2 [facility] Comment on above: Performed By: #### 2 628749 ####KADEN BairdXzrIzbl9514 [place] [address] Chloride 102 mmol/L Normal 98-107 [facility] Comment on above: Performed By: #### 2 081709 ####KADEN BairdSwxYibu2355 [place] [address] CO2 23.3 mmol/L Low 24.0-30.0 [facility] Comment on above: Performed By: #### 2 221338 ####KADEN BairdPjdGfzq6808 [place] [address] Glucose mass conc 93 mg/dL Normal 70-99 [facility] Comment on above: Performed By: #### 2 962239 ####KADEN RaxWkxp5193 [place] [address] Potassium molar conc 3.5 mmol/L Normal 3.5-5.1 [facility] Comment on above: Performed By: #### 2 941034 ####KADEN EmpLzlo3469 [place] [address] Sodium 136 mmol/L Normal 136-145 [facility] Comment on above: Performed By: #### 2 364815 ####KADEN ZngTiip7842 [place] [address] UA Completeon 04-18-2017 UA Blood Negative Normal Negative [facility] Comment on above: Performed By: #### 2 986423 ####KADEN Urinalysis Manual U[address]jpyvm[address] [place] [address] UA Amorph Chastity 2+ /HPF Abnormal None [facility] Comment on above: Performed By: #### 2 897817 ####KADEN Urinalysis Manual Hazmusbqxx7[address] [place] [address] UA Ascorbic Acid 40 mg/dL High <=19 [facility] Comment on above: Performed By: #### 2 318110 ####KADEN Urinalysis Manual W[address]jizjbjdm[address] [place] [address] UA Clarity Cloudy Abnormal Clear [facility] Comment on above: Performed By: #### 2 950963 ####KADEN Urinalysis Manual Irqvcsrnbu2018 [place] [address] UA Leuk Est Negative Normal Negative [facility] Comment on above: Performed By: #### 2 491995 ####KADEN Urinalysis Manual Dwcsuuslum6979 [place] [address] UA Mucous Trace Abnormal Trace [facility] Comment on above: Performed By: #### 2 402108 ####KADEN Urinalysis Manual Mkrfndnguz5664 [place] [address] UA Nitrite Negative Normal Negative [facility] Comment on above: Performed By: #### 2 983278 ####KADEN Urinalysis Manual Zxifcijvac[address] [place] [address] UA pH 7.0 Normal 4.6-8.0 [facility] Comment on above: Performed By: #### 2 477546 ####KADEN Urinalysis Manual Lxlgeoadbq1392 [place] [address] UA Protein Negative Normal Negative [facility] Comment on above: Performed By: #### 2 175617 ####KADEN Urinalysis Manual S[address]lklshcr[address] [place] [address] UA Spec Grav 1.018 Normal 1.003-1.03 0 [facility] Comment on above: Performed By: #### 2 426637 ####KADEN Urinalysis Manual Roclwnoiau33[address] [place] [address] UA Squam Epithelial 0-5 Normal 0-5 [facility] Comment on above: Performed By: #### 2 336578 ####KADEN Urinalysis Manual Lqcmsdmkcz15[address] [place] [address] UA Urobilinogen Negative Normal [facility] Comment on above: Performed By: #### 2 248983 ####KADEN Urinalysis Manual Dvddqboyyd[address] [place] [address] Urine, color Yellow Normal Yellow [facility] Comment on above: Performed By: #### 2 600234 ####KADEN Urinalysis Manual Htvcmupfdf[address] [place] [address] Urine, glucose Negative Normal Negative [facility] Comment on above: Performed By: #### 2 675155 ####KADEN Urinalysis Manual Rsdgxezeba[address] [place] [address] Urine, ketones presence 2+ Abnormal Negative [facility] Comment on above: Performed By: #### 2 885573 ####KADEN Urinalysis Manual Peaedlhbap[address] [place] [address] Urine, urobilinogen Negative Normal Negative [facility] Comment on above: Performed By: #### 2 423966 ####KADEN Urinalysis Manual Qctygyesyb[address] [place] [address] eGFRon 04-18-2017 eGFR (non-black) mL/min/{1.73_m2} Normal [facility] Comment on above: Order Comment: Order added by Discern Expert. Performed By: #### 1 1520420 ####KADEN BairdRdoRewf2622 [place] [address] eGFR AA >60 Normal [facility] Comment on above: Order Comment: Order added by Discern Expert. Performed By: #### 1 7067121 ####KADEN BairdTbiDpgt7246 [place] [address] Auto Diffon 04-11-2017 Basophils Auto #/vol (Bld) 0.1 E3/mcL Normal 0.0-0.2 [facility] Comment on above: Order Comment: Order Added by Discern Expert. Performed By: #### 2 217277 ####KADEN XqmDxqe9112 [place] [address] Basophils/100 WBC Auto (Bld) 0.7 % Normal 0.0-2.0 [facility] Comment on above: Order Comment: Order Added by Discern Expert. Performed By: #### 2 113105 ####KADEN ZptSois8075 [place] [address] Eos Absolute 0.0 E3/mcL Normal 0.0-0.7 [facility] Comment on above: Order Comment: Order Added by Discern Expert. Performed By: #### 2 478942 ####KADEN UegOkvx6032 [place] [address] Eosinophils/100 leukocytes 0.1 % Normal 0.0-11.0 [facility] Comment on above: Order Comment: Order Added by Discern Expert. Performed By: #### 2 787942 ####KADEN RndEuit3329 [place] [address] Lymphocytes 1.5 E3/mcL Normal 1.2-3.4 [facility] Comment on above: Order Comment: Order Added by Discern Expert. Performed By: #### 2 098558 ####KADEN ZntFjfq0060 [place] [address] Lymphocytes/100 leukocytes 17.2 % Low 20.0-55.0 [facility] Comment on above: Order Comment: Order Added by Discern Expert. Performed By: #### 2 142540 ####KADENMorelia BairdWjiIysq4873 [place] [address] Routt Absolute 0.6 E3/mcL Normal 0.0-0.7 [facility] Comment on above: Order Comment: Order Added by Discern Expert. Performed By: #### 2 316062 ####KADEN Luceoro1025 [place] [address] Monocytes/100 leukocytes 6.6 % Normal 0.0-10.0 [facility] Comment on above: Order Comment: Order Added by Discern Expert. Performed By: #### 2 109095 ####KADEN Luceroo1025 [place] [address] Neutro Absolute 6.7 E3/mcL High 1.4-6.5 [facility] Comment on above: Order Comment: Order Added by Discern Expert. Performed By: #### 2 208460 ####KADEN Luceroo1025 [place] [address] Neutro Auto 75.4 % High 37.0-75.0 [facility] Comment on above: Order Comment: Order Added by Discern Expert. Performed By: #### 2 228114 ####KADEN Luceroo1025 [place] [address] BMPon 04-11-2017 BUN/Creatinine Ratio 12.9 ratio Normal 5.4-30.0 [facility] Comment on above: Performed By: #### 2 574869 ####KADEN BairdIajUugg8174 [place] [address] Creatinine 0.7 mg/dL Normal 0.6-1.3 [facility] Comment on above: Performed By: #### 2 975607 ####KADEN BairdYbzUzkq2730 [place] [address] Urea nitrogen 9 mg/dL Normal 7-18 [facility] Comment on above: Performed By: #### 2 233802 ####KADEN BairdEeiNyqm6640 [place] [address] Calcium 9.5 mg/dL Normal 8.4-10.2 [facility] Comment on above: Performed By: #### 2 594893 ####KADEN BairdGycUvds8317 [place] [address] Chloride 105 mmol/L Normal 98-107 [facility] Comment on above: Performed By: #### 2 875485 ####KADEN BwdXdhz3100 [place] [address] CO2 22.5 mmol/L Low 24.0-30.0 [facility] Comment on above: Performed By: #### 2 531689 ####KADEN VdaQkkg0380 [place] [address] Glucose mass conc 92 mg/dL Normal 70-99 [facility] Comment on above: Performed By: #### 2 208086 ####KADENMorelia BaiKyuVmqw3483 [place] [address] Potassium molar conc 3.6 mmol/L Normal 3.5-5.1 [facility] Comment on above: Performed By: #### 2 003105 ####KADEN LhmIeca6007 [place] [address] Sodium 137 mmol/L Normal 136-145 [facility] Comment on above: Performed By: #### 2 153911 ####KADENMorelia BaiAloQiij5644 [place] [address] BhCG Quanton 04-11-2017 Beta hCG Qnt 8564.0 mIU/m Normal [facility] Comment on above: Result Comment: FEMA LE (NON-) & MALE <3 BORDERLINE 3 - 5 SUGGEST REPEAT TESTING FEMALE () 1 D - 1 WK 5 - 50 1 - 2 WK 50 - 500 2 - 3 WK 100 - 5000 3 - 4 WK 500 - 96912 4 - 5 WK 1000 - 67892 5 - 6 WK 68513 - 627292 6 - 8 W[place] 9[address] - 731390 2 - 3 [place] [address] - 920838 Performed By: #### 2 934232 ####KADEN FtbWbud0109 [place] [address] CBC w/ Auto Diffon 7 Erythrocyte distribution width Auto Ratio (RBC) 13.9 % Normal 11.5-14.5 [facility] Comment on above: Performed By: #### 2 555392 ####KADENMorelia BairdMexAkuj8324 [place] [address] Erythrocytes (RBC) 4.63 E6/mcL Normal 3.90-5.40 [facility] Comment on above: Performed By: #### 2 379362 ####KADEN Luceroo1025 [place] [address] Hematocrit (HCT) 38.2 % Normal 36.0-48.0 [facility] Comment on above: Performed By: #### 2 108304 ####KADEN Luceroo1025 [place] [address] Hemoglobin mass conc (Bld) 12.6 g/dL Normal 12.0-16.0 [facility] Comment on above: Performed By: #### 2 435278 ####KADEN Luceroo[address] [place] [id number] MCH 27.2 pg Normal 27.0-31.0 [facility] Comment on above: Performed By: #### 2 436312 ####KADEN Luceroo1025 [place] [address] MCHC mass conc (RBC) 33.0 g/dL Normal 33.0-37.0 [facility] Comment on above: Performed By: #### 2 491712 ####KADEN Luceroo1025 [place] [address] MCV 82.6 fL Normal 78.0-100.0 [facility] Comment on above: Performed By: #### 2 092536 ####KADEN Luceroo1025 [place] [address] Platelet mean volume (PMV) 8.0 fL Normal 7.4-11.0 [facility] Comment on above: Performed By: #### 2 382605 ####KADEN Luceroo1025 [place] [address] Platelets 233 E3/mcL Normal 130-400 [facility] Comment on above: Performed By: #### 2 949273 ####KADEN Luceroo1025 [place] [address] WBC (Leukocytes) 9.0 E3/mcL Normal 3.6-11.0 [facility] Comment on above: Performed By: #### 2 299690 ####KADEN Luceroo1025 [place] [address] UA Completeon 04-11-2017 UA Blood Negative Normal Negative [facility] Comment on above: Result Comment: High concentration of Ascorbic Acid present in urine. This may cause False Negative Occ Blood. Review microscopic results and patient's clinical symptoms. Performed By: #### 8 2554567 ####KADEN Urinalysis Automated Pphupmylet8788 [place] [address] UA Amorph Chastity 1+ /HPF Abnormal None [facility] Comment on above: Performed By: #### 8 7617338 ####KADEN Urinalysis Automated Hhnsbyibqk1431 [place] [address] UA Ascorbic Acid 40 mg/dL High <=19 [facility] Comment on above: Performed By: #### 8 7323039 ####KADEN Urinalysis Automated Ynshyetklb[address] [place] [address] UA Bacteria Trace Abnormal None [facility] Comment on above: Performed By: #### 8 4615413 ####KADEN Urinalysis Automated [address]mppwjxvaa[address] [place] [address] UA Clarity Cloudy Abnormal Clear [facility] Comment on above: Performed By: #### 8 6073472 ####KADEN Urinalysis Automated Fkfklorcth4[address] [place] [address] UA Leuk Est Negative Normal Negative [facility] Comment on above: Performed By: #### 8 3295401 ####KADEN Urinalysis Automated Jsofxrakwc38[address] [place] [address] UA Mucous Few Abnormal Trace [facility] Comment on above: Performed By: #### 8 8946900 ####KADEN Urinalysis Automated Xhobmqrjyg4[address] [place] [address] UA Nitrite Negative Normal Negative [facility] Comment on above: Performed By: #### 8 0637415 ####KADEN Urinalysis Automated Njhsqtvikc09[address] [place] [address] UA pH 7.0 Normal 4.6-8.0 [facility] Comment on above: Performed By: #### 8 3295252 ####KADEN Urinalysis Automated Txatwgmyec[address] [place] [address] UA Protein Negative Normal Negative [facility] Comment on above: Performed By: #### 8 0425688 ####KADEN Urinalysis Automated Vphurfogvz0791 [place] [address] UA Spec Grav 1.025 Normal 1.003-1.03 0 [facility] Comment on above: Performed By: #### 8 7927517 ####KADEN Urinalysis Automated Mhyiloxidt1639 [place] [address] UA Squam Epithelial 5-10 Abnormal 0-5 [facility] Comment on above: Performed By: #### 8 9292695 ####KADEN Urinalysis Automated Pfwnuetbwv1377 [place] [address] UA Urobilinogen 2.0 mg/dL Abnormal [facility] Comment on above: Performed By: #### 8 4471578 ####KADEN Urinalysis Automated Zcbadmnfey5729 [place] [address] Urine, color Yellow Normal Yellow [facility] Comment on above: Performed By: #### 8 7644157 ####KADEN Urinalysis Automated Smyrccboqf4884 [place] [address] Urine, erythrocytes 0-3 Normal 0-3 [facility] Comment on above: Performed By: #### 8 8013037 ####KADEN Urinalysis Automated Plsiemkvia4547 [place] [address] Urine, glucose Negative Normal Negative [facility] Comment on above: Performed By: #### 8 9015465 ####KADEN Urinalysis Automated Okzvdjcmdh7353 [place] [address] Urine, ketones presence 2+ Abnormal Negative [facility] Comment on above: Performed By: #### 8 2412182 ####KADEN Urinalysis Automated Gicsbwnzic4941 [place] [address] Urine, urobilinogen Negative Normal Negative [facility] Comment on above: Performed By: #### 8 2257912 ####KADEN Urinalysis Automated Oiknzrztuw3893 [place] [address] eGFRon 04-11-2017 eGFR (non-black) mL/min/{1.73_m2} Normal [facility] Comment on above: Order Comment: Order added by Discern Expert. Performed By: #### 1 [id number] ####KADEN DiqGakk7606 [place] [address] eGFR AA >60 Normal [facility] Comment on above: Order Comment: Order added by Discern Expert. Performed By: #### 1 [id number] ####KADEN VitZdwn2184 [place] [id number] U BhCG Qlton 03-20-2017 HCG.beta subunit Qn Negative Normal Neg [facility] Comment on above: Performed By: #### 2 324327 ####KADEN Urinalysis Manual Fabnxfjitx8138 [place] [address] UA Completeon 03-20-2017 UA Blood Negative Normal Negative [facility] Comment on above: Performed By: #### 8 1251542 ####KADEN Urinalysis Automated Ohfavsbzag[address] [place] [address] UA Amorph Chastity 1+ /HPF Abnormal None [facility] Comment on above: Performed By: #### 8 6694946 ####KADEN Urinalysis Automated Jyamlupttd[address] [place] [address] UA Bacteria 2+ /HPF Abnormal None [facility] Comment on above: Performed By: #### 8 2906501 ####KADEN Urinalysis Automated Jlwagwjlve7[address] [place] [address] UA Clarity Cloudy Abnormal Clear [facility] Comment on above: Performed By: #### 8 1005751 ####KADEN Urinalysis Automated Jxrmkqaduo94[address] [place] [address] UA Leuk Est 1+ Abnormal Negative [facility] Comment on above: Performed By: #### 8 [id number] ####KADEN Urinalysis Automated Psqgxwegpv6457 [place] [address] UA Mucous Occasional Abnormal Trace [facility] Comment on above: Performed By: #### 8 6166476 ####KADEN Urinalysis Automated Ujvmfuznyr3703 [place] [address] UA Nitrite Negative Normal Negative [facility] Comment on above: Performed By: #### 8 4036001 ####KADEN Urinalysis Automated Qpznqlegrl[address] [place] [address] UA pH 6.0 Normal 4.6-8.0 [facility] Comment on above: Performed By: #### 8 [id number] ####KADEN Urinalysis Automated [id number] [place], [place] [id number] UA Protein 1+ Abnormal Negative [facility] Comment on above: Performed By: #### [id number] ####KADEN Urinalysis Automated [id number] [place] [address] UA Spec Grav 1.019 Normal 1.003-1.03 0 [facility] Comment on above: Performed By: #### [id number] ####KADEN Urinalysis Automated [id number] [place] [address] UA Squam Epithelial 5-10 Abnormal 0-5 [facility] Comment on above: Performed By: #### 8 [id number] ####KADEN Urinalysis Automated Ulcjrdmpph4540 [place] [address] UA Urobilinogen Negative Normal [facility] Comment on above: Performed By: #### 8 [id number] ####KADEN Urinalysis Automated [id number] [place] [address] UA WBC >50 Abnormal 0-5 [facility] Comment on above: Performed By: #### 8 [id number] ####KADEN Urinalysis Automated [id number] [place] [address] Urine, color Yellow Normal Yellow [facility] Comment on above: Performed By: #### 8 [id number] ####KADEN Urinalysis Automated Nfsufcbqtw2875 [place] [address] Urine, erythrocytes 5-10 Abnormal 0-3 [facility] Comment on above: Performed By: #### 8 [id number] ####KADEN Urinalysis Automated Cvcmyovvvd5157 [place] [address] Urine, glucose Negative Normal Negative [facility] Comment on above: Performed By: #### 8 [id number] ####KADEN Urinalysis Automated Wtnhmxzoov3680 [place] [address] Urine, ketones presence Negative Normal Negative [facility] Comment on above: Performed By: #### 8 [id number] ####KADEN Urinalysis Automated [address]hi[address]sss8800 [place] [address] Urine, urobilinogen Negative Normal Negative [facility] Comment on above: Performed By: #### 8 [id number] ####KADEN Urinalysis Automated Hpgdbzjstf0047 [place] [address] Vital Signs Date Time Vital Sign Value Performing Clinician Facility 09-10-2024 11:56-0400 Body mass index (BMI) [Ratio] 26.76 kg/m2 Cunog Diana DO Work Phone: [facility] 09-10-2024 11:56-0400 Body weight 75.21 kg Cuong Diana DO Work Phone: [facility] 09-10-2024 11:56-0400 Diastolic blood pressure 80 mm[Hg] Cuong Diana DO Work Phone: [facility] 09-10-2024 11:56-0400 Systolic blood pressure 110 mm[Hg] Cuong Diana DO Work Phone: [facility] 08-27-2024 14:22-0400 Body mass index (BMI) [Ratio] 27.12 kg/m2 Ashwin Packer MD Work Phone: [facility] 08-27-2024 14:22-0400 Body weight 73.94 kg Ashwin Packer MD Work Phone: [facility] 08-27-2024 14:22-0400 Diastolic blood pressure 64 mm[Hg] Ashwin Packer MD Work Phone: [facility] 08-27-2024 14:22-0400 Systolic blood pressure 104 mm[Hg] Ashwin Packer MD Work Phone: [facility] 08-13-2024 11:48-0500 Body mass index (BMI) [Ratio] 25.95 kg/m2 Elena CHRISTENSEN Work Phone: [facility] 08-13-2024 11:48-0500 Body weight 72.94 kg Elena CHRISTENSEN Work Phone: [facility] 08-13-2024 11:48-0500 Diastolic blood pressure 68 mm[Hg] Elena CHRISTENSEN Work Phone: [facility] 08-13-2024 11:48-0500 Systolic blood pressure 112 mm[Hg] Elena CHRISTENSEN Work Phone: [facility] 07-20-2024 11:13-0500 Body mass index (BMI) [Ratio] 25.73 kg/m2 Cuong Diana DO Work Phone: [facility] 07-20-2024 11:13-0500 Body weight 72.3 kg Cuong Diana DO Work Phone: [facility] 07-20-2024 11:13-0500 Diastolic blood pressure 60 mm[Hg] Cuong Diana DO Work Phone: [facility] 07-20-2024 11:13-0500 Systolic blood pressure 100 mm[Hg] Cuong Diana DO Work Phone: [facility] 06-18-2024 10:37-0500 Body mass index (BMI) [Ratio] 25.02 kg/m2 Nom Nurse [facility] 06-18-2024 10:37-0500 Body weight 70.31 kg [facility] Nurse [facility] 06-18-2024 10:37-0500 Diastolic blood pressure 72 mm[Hg] [facility] Nurse [facility] 06-18-2024 10:37-0500 Systolic blood pressure 118 mm[Hg] [facility] Nurse [facility] 07-18-2023 10:30-0500 Body mass index (BMI) [Ratio] 26.7 kg/m2 Cuong Diana DO Work Phone: [facility] 07-18-2023 10:30-0500 Body weight 75.03 kg Cuong Diana DO Work Phone: [facility] 07-18-2023 10:30-0500 Diastolic blood pressure 68 mm[Hg] Cuong Diana DO Work Phone: [facility] 07-18-2023 10:30-0500 Systolic blood pressure 106 mm[Hg] Cuong Diana DO Work Phone: [facility] 02-11-2023 14:13-0400 Body height 165.1 cm SADAF Wyatt Work Phone: [facility] 02-11-2023 14:13-0400 Body temperature 97.9 [degF] PA-C Andie Wyatt Work Phone: [facility] 02-11-2023 14:130400 Body weight 70.55 kg PA-C Andie Wyatt Work Phone: [facility] 02-11-2023 14:13-0400 Diastolic blood pressure 80 mm[Hg] PA-C Andie Wyatt Work Phone: [facility] 02-11-2023 14:13-0400 Heart rate 60 /min PA-C Andie Wyatt Work Phone: [facility] 02-11-2023 14:13-0400 Respiratory rate 15 /min PA-C Andie Wyatt Work Phone: [facility] 02-11-2023 14:13-0400 SaO2% (BldA) [Mass fraction] 99 % PA-C Andie Wyatt Work Phone: [facility] 02-11-2023 14:13-0400 Systolic blood pressure 134 mm[Hg] PA-Ventura Wyatt Work Phone: [facility] 02-08-2023 12:36-0400 Body height 165.1 cm PA-C Andie Wyatt Work Phone: [facility] 02-08-2023 12:36-0400 Body temperature 98.2 [degF] FERMIN-C Andie Wyatt Work Phone: [facility] 02-08-2023 12:36-0400 Body weight 72.57 kg PA-Ventura Wyatt Work Phone: [facility] 02-08-2023 12:36-0400 Diastolic blood pressure 84 mm[Hg] FERMIN-Ventura Wyatt Work Phone: [facility] 02-08-2023 12:36-0400 Heart rate 74 /min PA-Ventura Wyatt Work Phone: [facility] 02-08-2023 12:36-0400 Respiratory rate 15 /min SADAF Wyatt Work Phone: [facility] 02-08-2023 12:36-0400 SaO2% (BldA) [Mass fraction] 98 % SADAF Wyatt Work Phone: [facility] 02-08-2023 12:36-0400 Systolic blood pressure 150 mm[Hg] PA-Ventura Wyatt Work Phone: [facility] 12-19-2022 14:43-0400 Body temperature 96.9 [degF] FERMIN-Ventura Wyatt Work Phone: [facility] 12-19-2022 14:43-0400 Diastolic blood pressure 74 mm[Hg] FERMIN-Ventura Wyatt Work Phone: [facility] 12-19-2022 14:43-0400 Heart rate 59 /min SADAF Wyatt Work Phone: [facility] 12-19-2022 14:43-0400 Respiratory rate 18 /min SADAF Wyatt Work Phone: [facility] 12-19-2022 14:43-0400 SaO2% (BldA) [Mass fraction] 100 % SADAF Wyatt Work Phone: [facility] 12-19-2022 14:43-0400 Systolic blood pressure 115 mm[Hg] SADAF Wyatt Work Phone: [facility] 12-19-2022 14:00-0400 Diastolic blood pressure 89 mm[Hg] SADAF Wyatt Work Phone: [facility] 12-19-2022 14:00-0400 Heart rate 79 /min SADAF Wyatt Work Phone: [facility] 12-19-2022 14:00-0400 Respiratory rate 16 /min SADAF Wyatt Work Phone: [facility] 12-19-2022 14:00-0400 SaO2% (BldA) [Mass fraction] 99 % SADAF Wyatt Work Phone: [facility] 12-19-2022 14:00-0400 Systolic blood pressure 150 mm[Hg] PA-C Andie Wyatt Work Phone: [facility] 12-19-2022 03:30-0400 Body height 165.1 cm PA-C Andie Wyatt Work Phone: [facility] 12-19-2022 03:30-0400 Body weight 72.2 kg PA-C Andie Wyatt Work Phone: [facility] 12-18-2022 23:07-0400 Body height 165.1 cm PA-C Andie Wyatt Work Phone: [facility] 12-18-2022 23:07-0400 Body weight 74.2 kg PA-C Andie Wyatt Work Phone: [facility] 12-18-2022 23:05-0400 Body temperature 98.5 [degF] FERMIN-C Andie Wyatt Work Phone: [facility] 08-20-2022 14:31-0500 Body height 165.1 cm PA-C Andie Wyatt Work Phone: [facility] 08-20-2022 14:31-0500 Body temperature 98.9 [degF] FERMIN-Ventura Wyatt Work Phone: [facility] 08-20-2022 14:31-0500 Body weight 71.55 kg SADAF Wyatt Work Phone: [facility] 08-20-2022 14:31-0500 Diastolic blood pressure 87 mm[Hg] PA-Ventura Wyatt Work Phone: [facility] 08-20-2022 14:31-0500 Heart rate 97 /min SADAF Wyatt Work Phone: [facility] 08-20-2022 14:31-0500 Respiratory rate 18 /min SADAF Wyatt Work Phone: [facility] 08-20-2022 14:31-0500 SaO2% (BldA) [Mass fraction] 98 % PA-Ventura Wyatt Work Phone: [facility] 08-20-2022 14:31-0500 Systolic blood pressure 135 mm[Hg] PA-Ventura Wyatt Work Phone: [facility] 02-08-2022 03:06-0400 Body weight 68.[address] CUONG ORTIZ . [facility] Comment on above: Performed By: #### AFPMAT #### [facility] [address] [place] [address] Dr. Juan Antonio Ibarra 02-05-2022 18:24-0400 Body height 165.1 cm PA-C Andie Wyatt Work Phone: [facility] 02-05-2022 18:24-0400 Body temperature 98.3 [degF] PA-Ventura Wyatt Work Phone: [facility] 02-05-2022 18:24-0400 Body weight 67.9 kg PA-Ventura Wyatt Work Phone: [facility] 02-05-2022 18:24-0400 Diastolic blood pressure 68 mm[Hg] PA-Ventura Wyatt Work Phone: [facility] 02-05-2022 18:24-0400 Heart rate 92 /min SADAF Wyatt Work Phone: [facility] 02-05-2022 18:24-0400 Respiratory rate 18 /min PA-Ventura Wyatt Work Phone: [facility] 02-05-2022 18:24-0400 SaO2% (BldA) [Mass fraction] 99 % PA-Ventura Wyatt Work Phone: [facility] 02-05-2022 18:24-0400 Systolic blood pressure 125 mm[Hg] PA-Ventura Wyatt Work Phone: [facility] Encounters Encounter Date Encounter Type Care Provider Facility Start: 09-10-2024 End: 09-10-2024 Bamboo flowsheet Cuong Diana DO Work Phone: [facility] Start: 09-10-2024 End: 09-14-2024 Bamboo flowsheet Cuong Diana DO Work Phone: [facility] Start: 09-10-2024 End: 09-14-2024 Clinisync Result Encounter Cuong Diana DO Work Phone: [facility] Unsolicited Start: 09-10-2024 End: 09-11-2024 External Result Encounter Cuong Diana DO Work Phone: [facility] Unsolicited Start: 09-10-2024 End: 09-10-2024 Office outpatient visit 15 minutes Cuong Diana DO Work Phone: [facility] Comment on above: Well woman exam with routine gynecological exam; STD exposure; Vaginal discharge; Second trimester ; 24 weeks gestation of Start: 09-10-2024 End: 09-10-2024 Patient encounter procedure Cuong Diana DO Work Phone: [facility] Start: 09-10-2024 End: 09-10-2024 ambulatory CUONG BETHEAO Not Available Start: 08-27-2024 End: 08-27-2024 Office consultation new/estab patient 60 min Ashwin Packer MD Work Phone: [facility] Comment on above: Suspected anom kaitlynn, antepartum, single or unspecified fetus (Primary Dx); 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 Start: 08-13-2024 End: 08-13-2024 Office outpatient visit 15 minutes Elena CHRISTENSEN Work Phone: [facility] Comment on above: Second trimester [...] 06-22-2024 ambulatory Andie Wyatt PA-C Work Phone: [facility] Work Phone: Start: 06-22-2024 End: 06-22-2024 Departed Referred Andie Wyatt PA-C Work Phone: [facility] Start: 06-18-2024 End: 06-18-2024 ambulatory [facility] Diana Nurse [facility] Comment on above: GA: 12w2d Start: 12-26-2023 End: 12-26-2023 ambulatory AMAURI RODRIGUEZ [facility] Start: 12-24-2023 End: 12-24-2023 ambulatory CUONG DIANA Not Available Start: 11-04-2023 End: 11-04-2023 ambulatory CUONG DIANA Not Available Start: 10-28-2023 End: 10-28-2023 ambulatory CUONG DIANA Not Available Start: 10-14-2023 End: 10-14-2023 ambulatory CUONG DIANA Not Available Start: 09-30-2023 End: 09-30-2023 ambulatory CUONG DIANA Not Available Start: 07-22-2023 Documentation procedure Lucio alise Renee LC Work Phone: [facility] Comment on above: Outgoing Ca ll Start: 07-18-2023 Clinisync Result Encounter Cunog Diana DO Work Phone: [facility] Unsolicited Start: 07-18-2023 Clinisync Result Encounter Cuong Diana DO Work Phone: [facility] Unsolicited Start: 07-18-2023 End: 07-18-2023 Office outpatient visit 15 minutes Cuong Diana DO Work Phone: [facility] Comment on above: Second trimester pre gnancy Start: 07-03-2023 End: 07-03-2023 Telemedicine consultation with patient Rosaura Renee [facility] Work Phone: [facility] Comment on above: Family history of ge netic disorder (Primary Dx); Genetic testing; Fetus with trisomy 13, single gestation Start: 07-03-2023 End: 07-03-2023 ambulatory CUONG R DIANA [facility] Start: 06-25-2023 Chart abstracting Scanning Pro vider External [facility] Start: 02-11-2023 End: 02-11-2023 Emergency department patient visit SADAF Wyatt Work Phone: [facility] Work Phone: Start: 02-08-2023 End: 02-08-2023 Emergency department patient visit SADAF Wyatt Work Phone: [facility] Work Phone: Start: 12-19-2022 End: 12-19-2022 Evaluation and management of inpatient SADAF Wyatt Work Phone: [facility] Work Phone: Start: 12-19-2022 End: 12-19-2022 observation encounter SADAF Wyatt Work Phone: [facility] Work Phone: Start: 10-24-2022 End: 10-24-[address] CUONG ORTIZ . Facility:[facility] Start: 10-23-2022 Registered Recurring SADAF Wyatt Work Phone: [facility] Start: 08-20-2022 End: 08-20-2022 Emergency department patient visit SADAF Wyatt Work Phone: [facility] Work Phone: Start: 07-23-[address] CUONG ORTIZ . Facili ty:[facility] Start: 07-09-2022 End: 07-09-[address] CUONG ORTIZ . Facility:[facility] Start: 07-05-2022 End: 07-07-2022 Evaluation and management of inpatient DR CUONG ORTIZ . Facility:[facility] Start: 07-02-2022 End: 07-02-2022 ambulatory [facility] Facility:[facility] Start: 06-28-2022 End: 06-28-[address] CUONG ORTIZ . Facility:[facility] Start: 06-21-2022 End: 06-21-2022 ambulatory [facility] Facility:[facility] Start: 06-16-2022 End: 06-16-2022 ambulatory [...] Start: 05-24-2022 End: 05-24-2022 ambulatory [facility] Facility:[facility] Start: 04-04-2022 End: 04-05-2022 ambulatory [...] department patient visit SADAF Wyatt Work Phone: [facility] Start: 12-26-2021 End: 12-27-[address] CUONG ORTIZ . Facility:[facility] Start: 12-07-2021 End: 12-08-[address] CUONG ORTIZ . Facility: Start: 12-27-2017 End: 12-27-2017 Patient encounter Christian Ivan Facility:[facility] Start: 12-12-2017 End: 12-12-2017 Emergency department patient visit Luke Barbosa Facility:[facility] Start: 12-12-2017 Patient encounter Facil [id number] Start: 12-07-2017 Evaluation and manag ement of inpatient CLARA JAMA Facility:[facility] Start: 12-03-2017 Evaluation and manag ement of inpatient CLARA JAMA Facility:[facility] Start: 12-03-2017 Patient encounter procedure CLARA JAMA Facility:[facility] Start: 12-02-2017 Evaluation and manag ement of inpatient CLARA JAMA Facility:[facility] Start: 11-30-2017 End: 12-02-2017 Evaluation and management of inpatient CLARA JAMA [facility] Start: 11-30-2017 End: 11-30-2017 Patient encounter Eloisa Chadwick Patrick Facility:[facility] Start: 11-30-2017 Patient encounter Facil [id number] Start: 11-28-2017 End: 11-28-2017 Patient encounter CLARA JAMA [facility] Start: 11-21-2017 End: 11-21-2017 Patient encounter OKSANASTAN AMADO [facility] Start: 11-21-2017 End: 11-21-2017 Patient encounter Juanita Cole Facility:[facility] Start: 11-20-2017 Patient encounter Facil [id number] Start: 11-17-2017 End: 11-17-2017 Patient encounter Christian Ivan Facility:[facility] Start: 11-16-2017 Patient encounter Facil [id number] Start: 11-07-2017 End: 11-07-2017 Patient encounter OKSANA AMADO [facility] Start: 10-31-2017 End: 10-31-2017 Patient encounter CLARA JAMA [facility] Start: 10-24-2017 End: 10-24-2017 Patient encounter MARCO ANTONIO ANTONIO [facility] Start: 10-16-2017 End: 10-16-2017 Patient encounter Christian Ivan Facility:[facility] Start: 10-08-2017 End: 10-08-2017 Patient encounter WARRENJEANMARIE PATEL [facility] Start: 10-08-2017 End: 10-08-2017 Patient encounter OKSANA CELINA [facility] Start: 10-01-2017 End: 10-02-2017 Patient encounter Christian Ivan Facility:[facility] Start: 09-10-2017 End: 09-11-2017 Patient encounter LUIS DANIEL TRAMMELL [facility] Start: 09-10-2017 End: 09-10-2017 Patient encounter KRIS HOYT [facility] Start: 09-10-2017 End: 09-10-2017 Patient encounter CLARA JAMA [facility] Start: 09-03-2017 End: 09-04-2017 Patient encounter Christian Morelia Henderson Facility:[facility] Start: 08-28-2017 Ambulatory NAGA ACOSTA [facility] Start: 08-13-2017 End: 08-14-2017 Patient encounter CLARA JAMA [facility] Start: 08-13-2017 End: 08-13-2017 Patient encounter MEREDITH BENITO [facility] Start: 08-13-2017 End: 08-13-2017 Patient encounter ALIREZA PATEL [facility] Start: 08-10-2017 End: 08-10-2017 Emergency department patient visit Luke Barbosa Facility:[facility] Start: 08-06-2017 End: 08-07-2017 Patient encounter Christian Ivan Facility:[facility] Start: 07-23-2017 End: 07-24-2017 Patient encounter Christian A Henderson Facility:[facility] Start: 07-18-2017 End: 07-18-2017 Patient encounter CLARA JAMA [facility] Start: 07-09-2017 End: 07-10-2017 Patient encounter Christian A Henderson Facility:[facility] Start: 06-25-2017 End: 06-26-2017 Patient encounter Christian A Shekhar Facility:[facility] Start: 06-12-2017 End: 06-12-2017 Patient encounter Christian A Henderson Facility:[facility] Start: 05-14-2017 End: 05-15-2017 Patient encounter Christian A Henderson Facility:[facility] Start: 05-01-2017 End: 05-02-2017 Patient encounter Eloisa Nguyen Facility:[facility] Start: 04-23-2017 End: 04-23-2017 Patient encounter Yasmin Evans Facility:[facility] Start: 04-22-2017 End: 04-22-2017 Emergency department patient visit Luke Barbosa Facility:[facility] Start: 04-18-2017 End: 04-18-2017 Emergency department patient visit Luke Barbosa Facility:[facility] Start: 04-16-2017 End: 04-17-2017 Patient encounter Gamaliel Savage Facility:[facility] Start: 04-16-2017 End: 04-17-2017 Patient encounter Christian Ivan Facility:[facility] Start: 04-11-2017 End: 04-11-2017 Emergency department patient visit Nodr No Doctor Assigned Facility:[facility] Start: 03-26-2017 End: 03-27-2017 Patient encounter Luke Barbosa Facility:[facility] Start: 03-20-2017 End: 03-20-2017 Emergency department patient visit Nodr No Doctor Assigned Facility:[facility] Start: 03-01-2017 End: 03-01-2017 Emergency department patient visit Nodr No Doctor Assigned Facility:[facility] Procedures Date Procedure Procedure Detail Performing Clinician Start: 09-14-2024 Urnls dip stick/tabl et rgnt non-auto w/o micrscp Cuong Diana DO Work Phone: Start: 09-10-2024 RECURRENT VAGINITIS (HTRX) Cuong Diana DO Work Phone: Start: 09-10-2024 IGP,APTIMA HPV,AGE GDLN Cuong Diana DO Work Phone: Start: 07-20-2024 AFP, SERUM, OPEN SPI NA [...] micrscp Cuong Ortiz DO Work Phone: Start: 05-30-2023 FREE CELL DNA (NON-[facility]) Not In System Ref Prov Start: 12-19-2022 Urine culture SADAF Drew vieira Wyatt Work Phone: Start: 12-19-2022 CT of [...] above: Performed By: #### T &S #### [place] [id number] Aerobic microbial culture FERMIN Wyatt Work Phone: Investigation of transfusion reaction SADAF Wyatt Work Phone: Plan of Treatment Date Care Activity Detail Author Start: 12-18-2032 DTaP,Tdap and Td Vaccines (10 - Td or Tdap) DTaP,Tdap and Td Vaccines (10 - Td or Tdap) [facility] Start: 10-25-2027 Screening for malign ant neoplasm of cervix [facility] Start: 10-24-2025 Screening for malign ant neoplasm of cervix Pap Smear [facility] Start: 08-27-2025 Adult BMI Screening Adult BMI Screen ing [facility] Start: 08-27-2025 Tobacco Screening Tobacco Screening [facility] Start: 10-12-2024 End: 10-12-2024 Patient encounter procedure 10/12/2024 1:20 PM EDT Routine [facility] [address] [place] [id number] Cuong Ortiz, DO [address] [place] [address] [facility] Start: 09-24-2024 End: 09-24-2024 Patient encounter procedure 09/24/2024 9:45 AM EDT Appointment [facility] [address] [facility] [address] [place] [address] [facility] Start: 09-10-2024 End: 09-10-2024 Patient encounter procedure 09/10/2024 11:10 AM EDT Routine [facility] [address] [place] [id number] Cuong Ortiz, DO [address] [place] [address] [facility] Start: 08-27-2024 End: 08-27-2025 US MFM with or without consult US MFM with or without consult Imaging Routine 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 , 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 Family history of genetic disorder Fetus with trisomy 13, single gestation CM (congenital malformation) Suspected anomaly, antepartum, single or unspecified fetus Expected: 08/27/2024, Expires: 08/27/2025 [facility] Work Phone: Comment on above: Expected: 08/27/2024 , Expires: 08/27/2025 Start: 08-27-2024 End: 08-27-2024 Patient encounter procedure 08/27/2024 1:00 PM EDT Appointment [facility] [address] [facility] [address] [place] [address] [facility] Start: 08-13-2024 End: 08-13-2024 Patient encounter procedure 08/13/2024 11:30 AM EST Routine [facility] [address] [place] [id number] Elena Fofana PA [address] [place] [address] [facility] Start: 08-13-2024 End: 08-13-2024 Professional / ancillary services management 08/13/2024 10:30 AM EST Ancillary Procedure [facility] [address] [place] [address] [facility] Start: 07-20-2024 End: 08-17-2024 Alpha fetoprotein, maternal Alpha fetoprotein, maternal Lab Routine 16 weeks gestation of Second trimester Expected: 07/20/2024 (Approximate), Expires: 08/17/2024 [facility] Comment on above: Expected: 07/20/2024 (Approximate), Expires: 08/17/2024 Start: 07-20-2024 End: 07-20-2025 US for US OB 14+ weeks anatomy scan Imaging Routine Screening, , for anatomic survey Expected: 07/20/2024, Expires: 07/20/2025 [facility] Work Phone: Comment on above: Expected: 07/20/2024 , Expires: 07/20/2025 Start: 07-20-2024 End: 07-20-2024 Patient encounter procedure 07/20/2024 10:40 AM EST Routine [facility] [address] [facility] [place] [phone] Cuong Ortiz, DO [address] [place] [address] [facility] Start: 06-22-2024 Bacteria identified in Urine by Culture Urine Culture [facility] Start: 06-22-2024 Urine culture [facility] Start: 06-18-2024 End: 06-18-2025 ABO/Rh ABO/Rh Lab Routine Missed menses , unspecified gestational age Expected: 06/18/2024 (Approximate), Expires: 06/18/2025 [facility] Comment on above: Expected: 06/18/2024 (Approximate), Expires: 06/18/2025 Start: 06-18-2024 End: 06-18-2025 Blood type and Indirect antibody screen panel - Blood Type and screen Lab Routine Missed menses , unspecified gestational age Expected: 06/18/2024 (Approximate), Expires: 06/18/2025 [facility] Work Phone: Comment on above: Expected: 06/18/2024 (Approximate), Expires: 06/18/2025 Start: 06-18-2024 End: 06-18-2025 Drugs of abuse panel - Urine by Screen method Rapid drug screen, urine Lab Routine , unspecified gestational age Encounter for supervision of normal first in first trimester Expected: 06/18/2024 (Approximate), Expires: 06/18/2025 [facility] Comment on above: Expected: 06/18/2024 (Approximate), Expires: 06/18/2025 Start: 02-16-2024 COVID-19 Vaccine ( season) COVID-19 Vaccine ( season) [facility] Start: 02-16-2024 Influenza vaccination N [facility] Start: 09-11-2023 Adult BMI Screening Adult BMI Screen ing [facility] Start: 09-11-2023 Tobacco Screening Tobacco Screening [facility] Start: 08-15-2023 End: 08-15-2023 Patient encounter procedure 08/15/2023 2:15 PM EST Appointment [facility] [address] [place] [address] [facility] Start: 08-15-2023 End: 08-15-2023 Patient encounter procedure 08/15/2023 9:10 AM EST Routine [facility] [address] [place] [address] Cuong Ortiz, DO [address] [place] [address] [facility] Start: 07-18-2023 End: 07-18-2023 Patient encounter procedure 07/18/2023 8:00 AM EST Appointment [facility] [address] [place] [address] [facility] Start: 07-03-2023 End: 07-03-2023 Telemedicine consultation with patient 07/03/2023 11:00 AM EST Telemedicine Maternal- Medicine at [facility] [address] [place] [phone] Rosaura Renee, [facility] [address] [place] [address] [facility] at [facility] Start: 05-02-2023 [facility]: 02-15-2023 COVID-19 Vaccine ( season) COVID-19 Vaccine ( season) [facility] Start: 02-15-2023 Influenza vaccination N [facility] Start: 12-19-2022 Bacteria identified in Urine by Culture Urine Culture [facility] Start: 12-19-2022 [facility] Start: 12-19-2022 CT of head without contrast CT head/brain wo con [facility] Start: 12-19-2022 CT Unspecified body region WO contrast [facility] Start: 12-19-2022 Consultation [facility] Start: 12-19-2022 Hospital admission [facility] Start: 12-19-2022 X-ray of left foot XR foot LT 2V [facility] Start: 12-19-2022 XR Foot - left 2 Views [facility] Start: 12-18-2022 Computed tomography of thoracic spine without contrast CT thoracic spine wo con [facility] Start: 12-18-2022 CT cervical spine without contrast CT cervical spine wo con [facility] Start: 12-18-2022 CT Cervical spine WO contrast [facility] Start: 12-18-2022 CT Lumbar spine WO contrast [facility] Start: 12-18-2022 CT of head without contrast CT head/brain wo [facility] Start: 12-18-2022 CT of lumbar spine without contrast CT lumbar spine wo [facility] Start: 12-18-2022 CT Thoracic spine WO contrast [facility] Start: 12-18-2022 CT Unspecified body region WO contrast [facility] Start: 12-18-2022 Pelvis X-ray XR pelvis 1-2V [facility] Start: 12-18-2022 Plain chest X-ray XR chest 1V portab le [facility] Start: 12-18-2022 X-ray of both knees XR knee BI 2V [facility] Start: 12-18-2022 XR Chest Single view [facility] Start: 12-18-2022 XR Knee - bilateral 2 Views [facility] Start: 12-18-2022 XR Pelvis 1 or 2 Views [facility] Start: 2022 Screening for malign ant neoplasm of cervix [facility] Start: 02-05-2022 [facility] Work Phone: Start: 2013 Screening for malign ant neoplasm of cervix Pap Smear [facility] Start: 2011 DTaP,Tdap and Td Vaccines (1 - Tdap) DTaP,Tdap and Td Vaccines (1 - Tdap) [facility] Start: 2010 Adult BMI Follow Up Plan Adult BMI Follow Up Plan [facility] Anaerobic microbial culture Anaerobic Culture [facility] Bacteria identified in Urine by Culture [facility] Bacteria identified in Urine by Culture Urine culture Microbiology Routine Missed menses Ordered: 06/18/2024 [facility] Comment on above: Ordered: 06/18/2024 CBC W Auto Different ial panel - Blood CBC and differential Lab Routine Missed menses , unspecified gestational age Ordered: 06/18/2024 [facility] Comment on above: Ordered: 06/18/2024 CHLAMYDIA TRACHOMATI S (GENITO/STI) CHLAMYDIA TRACHOMATIS (GENITO/STI) Lab Routine STD exposure Vaginal discharge Ordered: 09/10/2024 [facility] Comment on above: Ordered: 09/10/2024 Cytology Cervical or vaginal smear or scraping study Pap Smear Pathology and Cytology Routine Well woman exam with routine gynecological exam Ordered: 09/10/2024 [facility] Work Phone: Comment on above: Ordered: 09/10/2024 Hemoglobin A1c/Hemoglobin.total in Blood Hemoglobin A1c Lab Routine Missed menses , unspecified gestational age Ordered: 06/18/2024 [facility] Comment on above: Ordered: 06/18/2024 Hepatitis B virus surface Ag [Presence] in Serum or Plasma by Immunoassay Hepatitis B surface antigen Lab Routine Missed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
== END 2024-09-21 19:54 | disposition home or self-care (01) ==
PROVIDERS: Emergency Provider Internal Medicine
DX: O99.712 Diseases of the skin and subcutaneous tissue complicating pregnancy, second trimester (principal); L02.414 Cutaneous abscess of left upper limb; Z87.891 Personal history of nicotine dependence; Z3A.25 25 weeks gestation of pregnancy
CPT/HCPCS: 99283

== ENCOUNTER 2024-09-23 10:47 | Emergency (ER) | payer MEDICAID, SELFPAY ==
[2024-09-23] VITALS (18 sets, daily range): BP systolic 104–125; BP diastolic 63–80; PULSE 78–113; TEMP 37.1; O2SAT 95–100; BMI 26.6
--- NOTE | 2024-09-23 11:04 | ED_ITS ---
HPI HPI - General Adult General Chief complaint: Nausea/Vomiting/Diarrhea Stated complaint: CHEST PAIN, DIARRHEA 26 WEEKS PREG Time Seen by Provider: 09/23/24 10:48 Source: patient Mode of arrival: Wheelchair Limitations: no limitations History of Present Illness HPI narrative: Patient presents to ED complaining of nausea vomiting diarrhea. She said it started earlier this morning around 5 AM. Her other 2 children at home have been vomiting since last night as well. Patient states her mom had it as well recently. She is 26 weeks . This is her seventh and she has 3 living children at home. Patient does report she has had some abdominal cramping but no vaginal bleeding or loss of fluid. She is feeling baby move but called her OB office because she felt like maybe the movements were decreased. She is feeling the baby kick here and heart tones were 163. Vital signs are stable she also reports that the pain is radiating up into her chest. She is not short of breath or coughing. She is resting comfortably in the bed at this time Related Data Home Medications ?Medication ?Instructions ?Recorded ?Confirmed 2 tab PO DAILY 07/28/23 09/23/24 Previous Rx's ?Medication ?Instructions ?Recorded clindamycin HCl 150 mg capsule 300 mg (2 x 150 mg) PO Q6H 7 days 09/21/24 #56 caps ondansetron 4 mg disintegrating 4 mg PO DAILY PRN nausea and 09/23/24 tablet vomiting #15 tabs Allergies Allergy/AdvReac Type Severity Reaction Status Date / Time Penicillins Allergy Severe Anaphylaxis Verified 09/21/24 19:34 Sulfa (Sulfonamide Allergy Intermediate Hives Verified 09/21/24 19:34 Antibiotics) Opioid HPI Opioid Management Most Recent Opioid Data: Last Pain Scale 8 11/09/23 08:11 11/09/23 Ur Phencyclidine Scrn Negative (NEGATIVE) 06/22/24 12:40 /0 12/09 Review of Systems ROS Status of ROS 10 or more systems reviewed and unremark able except as noted in history and below [facility] Medical History (Updated 09/23/24 @ 13:08 by Renata Fox DO) (spontaneous vaginal delivery) ?O80 - Encounter for full-term uncomplicated delivery (ICD-10) Social History Smoking status: Former smoker Little interest or pleasure in doing things: not at all Feeling down, depressed, or hopeless: not at all Exam Narrative Exam Narrative: Time Seen: [] Vital Signs: [Per nurse's notes.] General: [Alert] Skin: [Warm, dry, no rash.] Head: [Normocephalic, atraumatic.] Neck: [Supple, trachea midline.] Eye: [Pupils are equal, round and reactive to light, extraocular movements are intact, normal conjunctiva.] Ears, nose, mouth and throat: oral mucosa moist. Cardiovascular: [Regular rate and rhythm, no murmur.] Respiratory: [Lungs are clear to auscultation, respirations are non-labored, breath sounds are equal.] Gastrointestinal: [Soft, nontender, non distended, normal bowel sounds.] Gravid MSK: 5 out of 5 muscle strength x 4 extremities no calf pain or edema Psychiatric: [Cooperative, appropriate mood & affect.] Neurological: [Alert and oriented to person, place, time, and situation, no fo rudolph neurological deficit observed.] Constitutional Vital Signs, click to edit/add: Last Vital Signs Temp 98.7 F 09/23/24 10:51 Pulse 78 09/23/24 13:10 Resp 12 09/23/24 13:10 BP 117/63 09/23/24 13:00 Pulse Ox 100 09/23/24 13:10 O2 Del Method Room Air 09/23/24 10:51 Course Vital Signs Vital signs: Vital Signs Temperature 98.7 F 09/23/24 10:51 Pulse Rate 102 H 09/23/24 10:51 Respiratory Rate 18 09/23/24 10:51 Blood Pressure 125/80 09/23/24 10:51 Pulse Oximetry 100 09/23/24 10:51 Oxygen Delivery Method Room Air 09/23/24 10:51 Temperature 98.7 F 09/23/24 10:51 Pulse Rate 78 09/23/24 13:10 Respiratory Rate 12 09/23/24 13:10 Blood Pressure 117/63 09/23/24 13:00 Pulse Oximetry 100 09/23/24 13:10 Oxygen Delivery Method Room Air 09/23/24 10:51 Medical Decision Making MDM Narrative Medical decision making narrative: Reevaluated patient. She said she was still nauseated. I ordered another 4 mg of Zofran IV. Her fluids are finished and her heart rate has improved. She was around 2825-2267 and now she is down to about 87. Patient is keeping ice chips down at this point. Patient was reevaluated after ice chips and the second round of Zofran. She is feeling better and states that she would like to go home. She said her has to get to work. Vital signs are stable. She is alert and oriented. She still feeling baby move. Instructed her to follow-up with [facility] as scheduled. Return to ED if worsening symptoms. Patient comfortable care plan for home Differential Diagnosis Differential Diagnosis: Dehydration, gastroenteritis Lab Data Lab results reviewed: Yes I reviewed the patient's lab results Labs: Lab Results 09/23/24 Range/Units 11:13 WBC 12.5 H (4.0-11.0) 10^3/uL RBC 4.15 L (4.20-5.40) 10^6/uL Hgb 11.4 L (12.0-16.0) g/dL Hct 35.7 L (36.0-48.0) % MCV 86.0 (81.0-99.0) fL MCH 27.5 (26.7-34.0) pg MCHC 31.9 (29.9-35.2) g/dL RDW 14.1 (11.0-15.0) % Plt Count 172 (150-450) 10^3/uL MPV 9.6 (9.5-13.5) fL Seg Neuts % (Manual) 93.0 H (43.0-75.0) Band Neutrophils % 3.0 (0-5) % Lymphocytes % (Manual) 2.0 L (20.5-60.0) % Monocytes % (Manual) 2.0 (1.7-12.0) % Eosinophils % (Manual) 0.0 L (0.9-7.0) % Basophils % (Manual) 0.0 L (0.2-2.0) % Neutrophils # (Manual) 11.62 H (1.4-6.5) 10^3/uL Band Neutrophils # 0.4 H (0.0-0.3) 10^3/uL Lymphocytes # (Manual) 0.25 L (1.20-3.80) 10^3/uL Monocytes # (Manual) 0.25 L (0.30-0.80) 10^3/uL Eosinophils # (Manual) 0.00 (0.00-0.70) 10^3/uL Basophils # (Manual) 0.00 (0.00-0.10) 10^3/uL Anisocytosis 1+ Sodium 138 (136-145) mmol/L Potassium 3.7 (3.5-5.1) mmol/L Chloride 104 (98-107) mmol/L Carbon Dioxide 23.1 (21.0-32.0) mmol/L Anion Gap 14.6 BUN 7.0 (7.0-18.0) mg/dL Creatinine 0.62 (0.55-1.02) mg/dL Est GFR ( Amer) >60 (>=60 mL/min/1.73m^2) Est GFR (Non-Af Amer) >60 (>=60 mL/min/1.73m^2) BUN/Creatinine Ratio 11.3 Glucose 98 (74-106) mg/dL Calcium 8.7 (8.5-10.1) mg/dL Total Bilirubin 1.0 (0.2-1.0) mg/dL AST 17 (15-37) U/L ALT 11 L (14-59) U/L Alkaline Phosphatase 90 (46-116) U/L Total Protein 7.2 (6.4-8.2) g/dL Albumin 3.0 L (3.4-5.0) g/dL Globulin 4.2 g/dL Albumin/Globulin Ratio 0.7 ECG Data Attestation: I personally reviewed and interpreted this ECG as follows: Interpretation: EKG INTERPRETATION Time: [] 1058 Rate: [] 95 Rhythm: _ [] Normal sinus rhythm ST segments: _ [] No acute ST elevation or depression T waves: _ [] Ectopy: _ [] P wave/MS interval: _ [] QRS interval: _ [] QT interval: _ [] Comparison: _ [] Comparison EKG date: [] Performed by: [self] Discharge Plan Discharge Chief Complaint: Nausea/Vomiting/Diarrhea Clinical Impression: Nausea & vomiting, Gastroenteritis Patient Disposition: Home, Self-Care Time of Disposition Decision: 13:07 Condition: Good Mode of Transportation: Private Vehicle Prescriptions / Home Meds: New ondansetron 4 mg tablet,disintegrating 4 mg PO DAILY PRN (Reason: nausea and vomiting) Qty: 15 0RF No Action 2 tab PO DAILY clindamycin HCl 150 mg capsule 300 mg PO Q6H 7 Days Qty: 56 0RF Print Language: Togolese Instructions: Acute Nausea and Vomiting (ED) Referrals: Ramon Avila MD [Primary Care Provider] - 1 week Discharge Date/Time: 09/23/24 13:23
[2024-09-23] MEDS: ONDANSETRON PF 4 MG/2 ML VIAL IV ×2 (11:15→12:50)
[2024-09-23] MEDS: 0.9 % SODIUM CHLORIDE 1,000 ML 999 ML IV (11:15)
[2024-09-23 11:30] LABS: Hematocrit 35.7 % (36.0-48.0); Hemoglobin 11.4 g/dL (12.0-16.0); Mean Corpuscular HGB Conc 31.9 g/dL (29.9-35.2); Mean Corpuscular Hemoglobin 27.5 pg (26.7-34.0); Mean Platelet Volume 9.6 fL (9.5-13.5); Platelet Count 172 10^3/uL (150-450); Red Blood Count 4.15 10^6/uL (4.20-5.40); Red Cell Distribution Width 14.1 % (11.0-15.0); White Blood Count 12.5 10^3/uL (4.0-11.0)
[2024-09-23 11:45] LABS: Band Neutrophils Absolute 0.4 10^3/uL (0.0-0.3); Lymphocytes Absolute Manual 0.25 10^3/uL (1.20-3.80); Monocytes Absolute Manual 0.25 10^3/uL (0.30-0.80); Segmented Neut Absolute Manual 11.62 10^3/uL (1.4-6.5)
[2024-09-23 11:46] LABS: Anisocytosis 1+
[2024-09-23 11:47] LABS: Alanine Aminotransferase 11 U/L (14-59); Albumin Globulin Ratio 0.7; Alkaline Phosphatase 90 U/L (46-116); Anion Gap 14.6; Aspartate Amino Transferase 17 U/L (15-37); BUN Creatinine Ratio 11.3; Calcium 8.7 mg/dL (8.5-10.1); Carbon Dioxide 23.1 mmol/L (21.0-32.0); Chloride 104 mmol/L (98-107); Estimated GFR (African America >60 (>=60 mL/min/1.73m^2); Estimated GFR (Non-African Ame >60 (>=60 mL/min/1.73m^2); Globulin 4.2 g/dL; Glucose 98 mg/dL (74-106); Potassium 3.7 mmol/L (3.5-5.1); Sodium 138 mmol/L (136-145); Total Protein 7.2 g/dL (6.4-8.2)
--- NOTE | 2024-09-23 12:06 | ECG_ITS ---
The [facility] Test Date: 2024-09-23 Pat Name: ZULEIKA WADDELL Department: Room: - Gender: Female Warehouse Analyst: : 1990 Requested By: GERA PULLIAM Order Number: [id number] Reading MD: VIKY VICENTE Measurements Intervals [place] Rate: 95 P: 60 WV: 118 QRS: 73 QRSD: 78 T: 42 QT: 332 QTc: 385 Interpretive Statements 1100 Sinus rhythm 2210 Short WV interval 9150 abnormal ECG Compared to ECG 05/16/2021 19:44:03 Short WV interval now present Electronically Signed On 09-23-2024 14:08:31 EDT by VIKY VICENTE
== END 2024-09-23 13:23 | disposition home or self-care (01) ==
PROVIDERS: Emergency Provider Emergency Medicine; PCP Family Medicine
DX: O99.612 Diseases of the digestive system complicating pregnancy, second trimester (principal); K52.9 Noninfective gastroenteritis and colitis, unspecified; Z3A.26 26 weeks gestation of pregnancy; O21.2 Late vomiting of pregnancy; Z87.891 Personal history of nicotine dependence
CPT/HCPCS: 36415; 80053; 85007; 85027; 93005; 96361; 96374; 96376; 99284; J2405

== ENCOUNTER 2024-10-26 12:45 | Outpatient (OUT) | payer MEDICAID, SELFPAY ==
[2024-10-26 13:27] LABS: Alanine Aminotransferase 14 U/L (14-59); Albumin Globulin Ratio 0.6; Albumin Level 2.6 g/dL (3.4-5.0); Alkaline Phosphatase 86 U/L (46-116); Anion Gap 12.1; Aspartate Amino Transferase 15 U/L (15-37); BUN Creatinine Ratio 10.9; Bilirubin Total 0.8 mg/dL (0.2-1.0); Calcium 8.8 mg/dL (8.5-10.1); Chloride 102 mmol/L (98-107); Estimated GFR (African America >60 (>=60 mL/min/1.73m^2); Estimated GFR (Non-African Ame >60 (>=60 mL/min/1.73m^2); Globulin 4.3 g/dL; Glucose 82 mg/dL (74-106); Potassium 4.1 mmol/L (3.5-5.1); Sodium 134 mmol/L (136-145); Total Protein 6.9 g/dL (6.4-8.2)
[2024-10-26 13:49] LABS: Basophils Percent Auto 0.3 % (0.2-2.0); Eosinophils Absolute Auto 0.1 10^3/uL (0.0-0.7); Eosinophils Percent Auto 0.8 % (0.9-7.0); Hematocrit 32.6 % (36.0-48.0); Hemoglobin 10.6 g/dL (12.0-16.0); Immature Granulocytes Abs Auto 0.15 10^3/uL (0.00-0.03); Immature Granulocytes Pct Auto 1.5 % (0.0-0.5); Lymphocytes Absolute Auto 1.6 10^3/uL (1.2-3.8); Lymphocytes Percent Auto 15.4 % (20.5-60.0); Mean Corpuscular HGB Conc 32.5 g/dL (29.9-35.2); Mean Platelet Volume 9.6 fL (9.5-13.5); Monocytes Absolute Auto 0.7 10^3/uL (0.3-0.8); Monocytes Percent Auto 6.6 % (1.7-12.0); Neutrophils Absolute Auto 7.7 10^3/uL (1.4-6.5); Neutrophils Percent Auto 75.4 % (43.0-75.0); Platelet Count 189 10^3/uL (150-450); Red Blood Count 3.93 10^6/uL (4.20-5.40); Red Cell Distribution Width 13.6 % (11.0-15.0); White Blood Count 10.2 10^3/uL (4.0-11.0)
== END 2024-10-26 12:46 | disposition home or self-care (01) ==
LOC: LAB 12:45
PROVIDERS: PCP Family Medicine; Visit Provider Obstetrics & Gynecology
DX: Z34.93 Encounter for supervision of normal pregnancy, unspecified, third trimester (principal); R42 Dizziness and giddiness
CPT/HCPCS: 36415; 80053; 85025

== ENCOUNTER 2024-11-03 10:03 | Outpatient (OUT) | payer MEDICAID, SELFPAY ==
--- NOTE | 2024-11-03 | US_ITS ---
The [address] [address] Patient Name: ZULEIKA WADDELL MRN: [id number] date: 1990 Sex: F Assigned Patient Location: US Current Patient Location: Accession/Order Number: [id number] Exam Date: 11/03/2024 16:30 Report Date: 11/03/2024 16:34 At the request of: DAVE CUELLRA DO Procedure: US OB growth Limited ultrasound HISTORY: Negative cisterna magna. Fetus in cephalic presentation with longitudinal lie. Amniotic fluid index is 11.1 cm within normal limits. Largest fluid pocket measures 5.1 cm. The heart rate is 148 bpm. The estimated date of delivery 01/01/2025 with overall gestational age 31 weeks 4 days. Estimated weight is 1825 g within the 30th percentile. Prominent cisterna magna present. Width 1.4 cm. Length of 4.5 cm. US/US OB growth IMPRESSION: Prominent cisterna magna. This measures 1.4 cm. Impression dictated by: Aaron Boyce M.D. 11/03/2024 4:34 PM Dictation Location: [employer] Electronically authenticated by: [id number] Y Date: 11/03/2024 16:34
--- NOTE | 2024-11-03 | US_ITS ---
[place] [id number] Patient Name: ZULEIKA WADDELL MRN: [id number] date: 1990 Sex: F Assigned Patient Location: US Current Patient Location: Accession/Order Number: [id number] Exam Date: 11/03/2024 15:29 Report Date: 11/03/2024 15:31 At the request of: DAVE CUELLAR DO Procedure: US OB BPP w non-stress Ultrasound obstetrical biophysical profile HISTORY: Wyatt cisterna magna. In adequate breathing movement. Adequate gross body movement, tone and amniotic fluid volume. Total score 6 out of 8. Amniotic fluid index 11.1 cm within normal limits. heart rate 148 bpm. US/US OB BPP w non-stress IMPRESSION: Suboptimal biophysical profile. Score 6 out of 8. Impression dictated by: Aaron Boyce M.D. 11/03/2024 3:31 PM Dictation Location: [employer] Electronically authenticated by: [id number] Y Date: 11/03/2024 15:31
--- OUTSIDE RECORDS SUMMARY | 2024-11-03 10:08 | XMS_ITS | CCD ---
Author Organization [facility] Care Team Providers Care Commutator Repairer Name Role Phone CLARA JAMA Unavailable Unavail able SERENITY MALDONADO Unavailable Unavailable OKSANA CARO Unavailable UnaNAGA Bai Unavailable Unavailable BARBOSA, LUKE MALIK Unavailable Unavailable Eloisa Nguyen R Unavailable Unavailable Patrick, Eloisa R Unavailable Unavailable Barbosa, Luke Unavailable Unavailable Shekhar, Christian A Unavailable Unavailable Barbosa, Luke Unavailable Unavailable [place], Christian A Unavailable Unavailable Barbosa, Luke Unavailable Unavailable [place], Christian A Unavailable Unavailable Barbosa, Luke Unavailable Unavailable Shekhar, Christian A Unavailable Unavailable Barbosa, Luke Unavailable Unavailable [place], Christian A Unavailable Unavailable [place], Christian A Unavailable Unavailable Barbosa, Luke Unavailable Unavailable [place], Christian A Unavailable Unavailable Barbosa, Luke Unavailable Unavailable Shekhar, Christian A Unavailable Unavailable [place], Christian A Unavailable Unavailable Barbosa, Luke Unavailable Unavailable Barbosa, Luke Unavailable Unavailable Woo, Emiliano Unavailable Unavailable Woo, Emiliano Unavailable Unavailable Eloisa Nguyen R Unavailable Unavailable Barbosa, Luke Unavailable Unavailable Barbosa, Luke Unavailable Unavailable Oscar, Jag W Unavailable Unavailable [place], Jag W Unavailable Unavailable [place], Christian A Unavailable Unavailable Barbosa, Luke Unavailable Unavailable [place], Christian A Unavailable Unavailable Barbosa, Luke Unavailable [...] Unavail able Oscar, Jag W Unavailable Unavailable [place], Jag W Unavailable Unavailable Barbosa, Luke Unavailable Unavailable No Doctor Assigned, Nodr Unavailable Unavail able Gamaliel Savage Unavailable Unavailable Barbosa, Luke Unavailable Unavailable Hannah, Aaron A Unavailable Unavailable Hannah, Aaron A Unavailable Unavailable Patrick, Eloisa R Unavailable Unavailable Patrick, Eloisa R Unavailable Unavailable Barbosa, Luke Unavailable Unavailable Frank, Juanita Unavailable Unavailable Frank, Juanita Unavailable Unavailable Barbosa, Luke Unavailable Unavailable [place], Christian A Unavailable Unavailable [place], Christian A Unavailable Unavailable Barbosa, Luke Unavailable Unavailable [place], Christian A Unavailable Unavailable Barbosa, Luke Unavailable Unavailable Barbosa, Luke Unavailable Unavailable Oscar, Jag W Unavailable Unavailable Oscar, Jag W Unavailable Unavailable [place], Christian A Unavailable Unavailable Barbosa, Luke Unavailable Unavailable Gamaliel Savage Unavailable Unavailable Gamaliel Savage Unavailable Unavailable Barbosa, Luke Unavailable Unavailable [place], Christian A Unavailable Unavailable Barbosa, Luke Unavailable [...] Primary Care Provider SADAF Hess Emergency Provider [phone] SADAF Wyatt Primary Care Provider [facility] Elle Whitney Emergency Provider DIANA ., DR ACOSTA Consulting Unavailable [facility] Primary Care Unavailable DIANA ., DR ACOSTA Attending Unavailable DIANA ., DR ACOSTA Admitting Unavailable DIANA ., DR ACOSTA Admitting Unavailable DIANA ., DR ACOSTA Attending Unavailable [facility] Primary Care Unavailable DIANA ., DR ACOSTA Consulting Unavailable ZIEBER, DR FELECIA Chadwick Consulting Unavailable [facility] Primary Care Unavailable KARASIK ., DR CAMACHO Admitting Unavailabl e KARASIK ., DR CAMACHO Attending Unavailabl e KARASIK ., DR CAMACHO Consulting Unavailabl e ALISIA, DR GAMALIEL Fischer Consulting Unavailable DIANA ., DR ACOSTA Consulting Unavailable ZIEBER, DR FELECIA Chadwick Consulting Unavailable BRIGIDO ., ELENA Admitting Unavailable BRIIGDO ., ELENA Attending Unavailable [facility] Primary Care Unavailable BRIGIDO ., ELENA Consulting Unavailable DIANA ., DR ACOSTA Admitting Unavailable DIANA ., DR ACOSTA Attending Unavailable [facility] Primary Care Unavailable DIANA ., DR ACOSTA Consulting Unavailable [facility] Primary Care Unavailable KARASIK ., DR CAMACHO Admitting Unavailabl e KARASIK ., DR CAMACHO Attending Unavailabl e KARASIK ., DR CAMACHO Consulting Unavailabl e DIANA ., DR ACOSTA Admitting Unavailable DIANA ., DR ACOSTA Attending Unavailable [facility] Primary Care Unavailable DIANA ., DR ACOSTA Consulting Unavailable ZIEBER, DR FELECIA Chadwick Consulting Unavailable DIANA ., DR ACOSTA Admitting Unavailable DIANA ., DR ACOSTA Attending Unavailable [facility] Primary Care Unavailable DIANA ., DR ACOSTA Consulting Unavailable ZIEBER, DR FELECIA Chadwick Consulting Unavailable PRATIMA, BRODIE Consulting Unavailable DIANA ., DR ACOSTA Consulting Unavailable [facility] Primary Care Unavailable DIANA ., DR ACOSTA Attending Unavailable DIANA ., DR ACOSTA Admitting Unavailable ZIEBER, DR FELECIA Chadwick Consulting Unavailable DIANA ., DR ACOSTA Consulting Unavailable [facility] Primary Care Unavailable DIANA ., DR ACOSTA Attending Unavailable DIANA ., DR ACOSTA Admitting Unavailable DIANA ., DR ACOSTA Admitting Unavailable DIANA ., DR ACOSTA Attending Unavailable [facility] Primary Care Unavailable DIANA ., DR ACOSTA Consulting Unavailable ZIEBER, DR FELECIA Chadwick Consulting Unavailable DIANA ., DR ACOSTA Admitting Unavailable DIANA ., DR ACOSTA Attending Unavailable [facility] Primary Care Unavailable WEST, DR GAMALIEL Fischer Consulting Unavailable DIANA ., DR ACOSTA Consulting Unavailable [facility] Primary Care Unavailable KARASIK ., DR CAMACHO Admitting Unavailabl e KARASIK ., DR CAMACHO Attending Unavailabl e KARASIK ., DR CAMACHO Consulting Unavailabl e DIANA ., DR ACOSTA Consulting Unavailable ZIEBER, DR FELECIA Chadwick Consulting Unavailable DIANA ., DR ACOSTA Admitting Unavailable DIANA ., DR ACOSTA Attending Unavailable [facility] Primary Care Unavailable [facility], DR GAMALIEL Fischer Consulting Unavailable DIANA ., DR ACOSTA Consulting Unavailable DIANA ., DR ACOSTA Admitting Unavailable DIANA ., DR ACOSTA Attending Unavailable [facility] Primary Care Unavailable DIANA ., DR ACOSTA Consulting Unavailable DIANA ., DR ACOSTA Admitting Unavailable DIANA ., DR ACOSTA Attending Unavailable [facility] Primary Care Unavailable DIANA ., DR ACOSTA Consulting Unavailable ZIEBER, DR FELECIA Chadwick Consulting Unavailable DIANA ., DR AOCSTA Admitting Unavailable DIANA ., DR ACOSTA Attending Unavailable [facility] Primary Care Unavailable DIANA ., DR ACOSTA Consulting Unavailable DIANA ., DR ACOSTA Admitting Unavailable DIANA ., DR ACOSTA Attending Unavailable [facility] Primary Care Unavailable DIANA ., DR ACOSTA Consulting Unavailable [facility] Primary Care Unavailable DIANA ., DR ACOSTA Attending Unavailable DIANA ., DR ACOSTA Admitting Unavailable DIANA ., DR ACOSTA Admitting Unavailable DIANA ., DR ACOSTA Attending Unavailable [facility] Primary Care Unavailable DIANA ., DR ACOSTA Admitting Unavailable DIANA ., DR ACOSTA Attending Unavailable [facility] Primary Care Unavailable KARASIK ., DR CAMACHO Consulting Unavailabl e DIANA ., DR ACOSTA Consulting Unavailable DIANA ., DR ACOSTA Procedure Practitioner Unavail able ORLANDO PRASAD Consulting Unavailable JACQUES FLETCHER Consulting Unavailable DIANA ., DR ACOSTA Admitting Unavailable DIANA ., DR ACOSTA Attending Unavailable [facility] Primary Care Unavailable KARASIK ., DR CAMACHO Consulting Unavailabl e ZIEBER, DR FELECIA Chadwick Consulting Unavailable SADAF Wyatt Primary Care Provider MD Farhan Jean Attending Provider DO Ryan Poe Emergency Provider DO Arden Orozco Admit Provider DO Arden Orozco Attending Provider [phone] Clon, CST Igor Other Provider UnavailMD Juan Edwards Other Provider HAROON Monique Other Provider MD Jacques Valerio Other Provider MD Edith Urias Other Provider SADAF Wyatt Primary Care Provider Meagan, [facility]- Elle E Emergency Provider BRANNON Valencia Emergency Provider [phone] Andie Johnson Unavailable Unallocated, [place] Provider Primary Care Provider Unallocated Beatrice CHAUs Provider Primary Care Provi kwabena Andie Wyatt PA-C Primary Care Provider Diana DO, Cuong Attending Provider Andie Wyatt Primary Care Unavailable Diana, Cuong Attending Unavailable Diana, Cuong Admitting Unavailable Andie Wyatt PA-C Primary Care Provider DIANA, CUONG R Referring Unavailable ANDIE WYATT Primary Care Unavailable ASHWIN PACKER Attending Unavailable ANDIE WYATT Referring Unavailable ANDIE WYATT Primary Care Unavailable Andie Wyatt PA-C Primary Care Provider DIANA, CUONG R Referring Unavailable ANDIE WYATT Primary Care Unavailable MALACHI MACDONALD Attending Unavailable DIANA, CUONG R Referring Unavailable ANDIE WYATT Primary Care Unavailable AMAURI RODRIGUEZ Referring Unavailable ANDIE WYATT Primary Care Unavailable DIANA, CUONG Attending Unavailable ELENA FOFANA Attending Unavailable DIANA, CUONG Attending Unavailable DIANA, CUONG Attending Unavailable DIANA, CUONG Referring Unavailable DIANA, CUONG Attending Unavailable DIANA, CUONG Attending Unavailable DIANA, CUONG Attending Unavailable DIANA, CUONG Attending Unavailable Allergies Allergy Classification Reported Allergen(s) Allergy Type Date of Onset Reaction(s) Facility (2 sources) Bee; Translations: [BEES] Propensity to adverse reactions (disorder) 12-01-19 18 [facility] Repository (2 sources) Mold spore; Translations: [MOLD SPORES] Propensity to adverse reactions (disorder) 12-01-19 18 [facility] Repository (20 sources) Penicillins; Translations: [PENICILLINS] Propensity to adverse reactions to drug (disorder) 11-27-19 14 Hives [facility] Repository (17 sources) Sulfonamides (Antibiotic); Translations: [SULFA (SULFONAMIDE ANTIBIOTICS)] Propensity to adverse reactions to drug (disorder) 12-01-19 18 AOF, Rash [facility] Repository (1 source) Bee/Wasp/Ant venom; Translations: [Bee Stings] Propensity to adverse reactions to drug (disorder) [facility] Repository (5 sources) mold extract; Translations: [Mold] Drug Allergy 08-13-19 25 [facility] Repository (1 source) Sulfonamides (Antibiotic); Translations: [sulfa drugs] Propensity to adverse reactions to drug (disorder) [facility] Repository (20 sources) bee venom; Translations: [BEE VENOM] Propensity to adverse reactions to drug (disorder) 07-18-19 18 [facility] Repository (1 source) OTHER; Translations: [OTHER] Propensity to adverse reactions to food (disorder) 11-22-19 18 [facility] Repository (15 sources) MOLDS & SMUTS; Translations: [MOLDS & SMUTS] Propensity to adverse reactions to drug (disorder) 07-18-19 18 [facility] Repository (20 sources) SULFA ANTIBIOTICS; Translations: [SULFA ANTIBIOTICS] Propensity to adverse reactions to drug (disorder) 07-18-19 18 [facility] Repository (1 source) Sulfonamides (Antibiotic) Drug allergy (disorder) 11-27-19 14 [facility] Repository (2 sources) Penicillin; Translations: [penicillin V] Drug Allergy 03-15-19 92 anaphylaxis [facility] (2 sources) Sulfacetamide; Translations: [sulfacetamide] Drug Allergy 03-15-19 92 anaphylaxis [facility] (8 sources) Bee Venom Protein (Honey Bee); Translations: [BEE VENOM PROTEIN (HONEY BEE)] Propensity to adverse reactions to drug 03-27-20 [facility] (14 sources) Bee pollen Allergy to substance 08-13-19 [facility] (14 sources) Penicillin G Drug Allergy 08-13-19 [facility] (14 sources) Sulfamethoxazole Allergy to substance 08-13-19 [facility] Medications Current Medications Medication Drug Class(es) Dates [...] 2022 11:25pm fluconazole 10 mg/ml oral suspension (6 sources) Azole Antifungal Start: 08-06-2022 fluconazole (DIFLUCAN) 10 mg/mL suspension 08/06/2022 Active 24 hr metoprolol succinate 50 mg extended release oral tablet (3 sources) beta-Adrenergic Farheen Start: 02-27-2023 take 1 tablet by mouth every twenty-four hours in the morning metoprolol succinate XL (Toprol-XL) 50 MG 24 hr tablet Take 50 mg by mouth in the morning. 0 02/27/2023 Active [place] (No Known Home Meds) (2 sources) Start: 12-18-2022 [place] (No Known Home Meds) Active December 18, 2022 12:00am ondansetron 4 mg disintegrating oral tablet (6 sources) Serotonin-3 Receptor Antagonist take 1 tablet by mouth every eight hours as needed for nausea and vomiting ondansetron ODT (ZOFRAN ODT) 4 mg disintegrating tablet Dissolve 1 tablet (4 mg total) on tongue every 8 (eight) hours as needed for nausea or vomiting. Active 25/iron fum/folic/dha (-1 ORAL) (6 sources) take 1 capsule by mouth once daily 25/iron fum/folic/dha (-1 ORAL) Take 1 capsule by mouth once daily. Active 25/iron fum/folic/dha (-1 ORAL) Take by mouth. 0 Active Yjtnxewg-Eli-Fb-FA (, w/Iron & FA,) 27-0.8 MG tablet (3 sources) Qmdcpeze-Oul-Jx-FA (, w/Iron & FA,) 27-0.8 MG tablet 1 (one) time each day at the same time. 0 Active HW-Xap-YA-Sproul-3 ( Gummies/DHA & FA) 0.4-32.5 MG chewable tablet (3 sources) Start: End: YP-Bgq-DL-Sproul-3 ( Gummies/DHA & FA) 0.4-32.5 MG chewable tablet Indications: 18 weeks gestation of Chew 0.4 mg in the morning. 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)] Onset: 09-10-2022 09-10-2022 Chronic Anxiety disorders (12 sources) Anxiety; Translations: [Anxiety disorder, unspecified] Onset: 09-10-2022 09-10-2022 Chronic Attention-deficit, conduct, and disruptive behavior disorders (6 sources) Attention deficit hyperactivity disorder; Translations: [Attention-deficit [...] [Missed period] Onset: 12-26-2021 Chronic Mood disorders (12 sources) Bipolar disorder; Translations: [Bipolar disorder, unspecified] Onset: 09-10-2022 09-10-2022 Chronic Nervous system congenital anomalies (20 sources) Congenital malformation of brain, unspecified; 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] Onset: 05-02-2022 05-02-2022 Chronic Normal [...] of ; puerperium affecting management of mother (5 sources) Maternal care for (suspected) abnormality and damage, unspecified, not applicable or unspecified; Translations: [MAT CARE ABN DAMGE UNS NA/UNS] Onset: 06-14-2022 Episodic Other complications of ; puerperium affecting [...] classified] Onset: 12-02-2017 Chronic Other congenital anomalies (6 sources) Talipes equinovarus; 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] Onset: 09-10-2022 09-10-2022 Chronic Other congenital anomalies (2 sources) Congenital malformation; Translations: [Congenital malformation, unspecified] 08-27-2024 Chronic Other congenital anomalies (1 source) Congenital malformation, unspecified; Translations: [Congenital malformation, unspecified] Onset: 09-28-2024 Chronic Other female genital disorders (2 sources) [...] [24 weeks gestation of ] 09-10-2024 Episodic Residual codes; unclassified (1 source) Family history of other specified conditions; Translations: [Family history of other specified conditions] Onset: 09-28-2024 Episodic Residual codes; unclassified (4 sources) Gestation period, 28 weeks; Translations: [28 weeks gestation of ] 10-12-2024 Episodic Residual codes; unclassified (2 sources) Gestation period, 30 weeks; Translations: [30 weeks gestation of ] 10-26-2024 Episodic Screening and history of mental health and substance abuse codes (1 source) Personal history of nicotine dependence; Translations: [PERSONAL HISTORY OF NICOTINE DEPEND] Onset: 08-15-2022 Episodic Short gestation; low weight; and growth retardation (2 sources) Gqvtr-eff-tkrer baby; Translations: [[place] small for gestational age, unspecified weight] 10-26-2024 Episodic Skin and subcutaneous tissue infections (9 sources) Abscess of chest wall; Translations: [Cutaneous abscess of chest wall] 02-05-2022 Episodic Unclassified (1 source) 39 weeks gestation of ; Translations: [39 weeks gestation of ] Onset: 12-02-2017 Unclassified (2 sources) anomaly Onset: 11-30-2017 Unclassified (3 sources) 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 NA/UNS; Translations: [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 NA/UNS] Onset: 07-05-2022 Unclassified (18 sources) OB Reminders Onset: 06-23-2024 06-23-2024 Unclassified (1 source) mfm consult Onset: 08-27-2024 Unclassified (1 source) Hx Brain Anomaly in prior Onset: 09-28-2024 Unclassified (1 source) Maternal care for (suspected) 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, trisomy 13, not applicable or unspecified; Translations: [Maternal care for (suspected) 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, trisomy 13, not applicable or unspecified] Onset: 09-28-2024 Past or Other Problems Problem Classification Problem Date Documented Date Episodic/Chronic Early or threatened labor (4 sources) False labor before 37 completed weeks of gestation, third trimester; Translations: [FALSE LABR BEFOR 37 WK GEST 3RD TRI] Onset: 06-16-2022 Episodic Mood disorders (6 sources) Mood disorders Onset: 05-02-2022 05-02-2022 Other complications of ; puerperium affecting management of mother (4 sources) Maternal care for other (suspected) abnormality and damage, not applicable or unspecified; Translations: [MAT CARE OTH ABN DAMGE NA/UNS] Onset: 06-21-2022 Episodic Other complications of (4 sources) Other specified related conditions, third trimester; Translations: [OTH SPEC PREG RELATED COND 3RD TRI] Onset: 06-02-2022 Episodic Other complications of (4 sources) Abnormal ultrasonic finding on screening of mother; Translations: [ABNORM US SCREEN MOTHER] Onset: 03-20-2022 Episodic Other complications of (10 sources) Supervision of with other poor reproductive [...] ] Onset: 12-12-2021 Episodic Residual codes; unclassified (20 sources) Family history of trisomy 13; Translations: [Family history of other congenital malformations, deformations and chromosomal abnormalities] Onset: 09-30-2023 09-30-2023 Episodic Unclassified (1 source) 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 NA/UNS; Translations: [M/C OT DIGITAL MEDIA BUYER 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 NA/UNS] Onset: 07-02-2022 Unclassified (1 source) 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 , 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 08-27-2024 Unclassified (1 source) Patient encounter status 08-27-2024 Results Test Name Value Interpretation Reference Range Facility [facility] CMP (CMP) (FOR REMOTE FH C USE)on 10-26-2024 Albumin [Mass/Vol] 2.6 g/dL Low 3.4 - 5.0 g/dL [facility] ALBUMIN GLOBULIN RATIO 0.6 [facility] ALP [Catalytic activity/Vol] 86 U/L 46 - 116 U/L [facility] ALT [Catalytic activity/Vol] 14 U/L 14 - 59 U/L [facility] Anion gap [Moles/Vol] 12.1 mmol/L [facility] AST [Catalytic activity/Vol] 15 U/L 15 - 37 U/L [facility] Bilirubin [Mass/Vol] 0.8 mg/dL 0.2 - 1 .0 mg/dL [facility] Calcium [Mass/Vol] 8.8 mg/dL 8.5 - 10. 1 mg/dL [facility] Chloride [Moles/Vol] 102 mmol/L 98 - 10 7 mmol/L [facility] CO2 [Moles/Vol] 24 mmol/L 21.0 - 32.0 mmol/L [facility] Creatinine [Mass/Vol] 0.55 mg/dL 0.55 - 1.02 mg/dL [facility] GFR/1.73 sq M.predicted CKD-EPI (S/P/Bld) [Vol rate/Area] >60 >=60 mL/min/1.7 3m 2 [facility] Globulin (S) [Mass/Vol] 4.3 g/dL [facility] Glucose [Mass/Vol] 82 mg/dL 74 - 106 mg/dL [facility] Interpretation and review of laboratory results Abnormal [facility] Potassium [Moles/Vol] 4.1 mmol/L 3.5 - 5.1 mmol/L [facility] Protein [Mass/Vol] 6.9 g/dL 6.4 - 8.2 g/dL [facility] Sodium [Moles/Vol] 134 mmol/L Low 136 - 145 mmol/L [facility] TB EGFR-NON AF G[place]IAN >60 >=60 mL/min/1.7 3m 2 [facility] Urea nitrogen [Mass/Vol] 6 mg/dL Low 7.0 - 18.0 mg/dL [facility] Urea nitrogen/Creatinine [Mass ratio] 10.9 mg/mg [facility] Urinalysis macro (dipstick) panel (U)on 10-26-2024 Bilirubin, UA Negative Negative - 4(70) +++ mg/dL [facility] Blood, UA Positive Negative - 50 Rakesh/mcL [facility] Comment on above: trace-intact Clarity, UA Clear [facility] Color, UA Yellow [facility] Glucose, UA Negative Negative - 2000(110) ++++ mg/dL [facility] Interpretation and review of laboratory results Abnormal [facility] Ketones, UA Negative Negative - 160(16) ++++ mg/dL [facility] Leukocytes, UA Positive Negative - 500+++ Matti/mcL [facility] Comment on above: small Nitrite, UA Negative Negative - Positive [facility] pH, UA 7 5 - 9 [facility] Protein, UA Negative Negative - 2000(20) ++++ mg/dL [facility] Spec Grav, UA 1.015 1 - 1.03 [facility] Urobilinogen, UA 0.2 0.2 - 12 mg/dL [facility] US OB FOLLOW UP TRANSABDOMIN AL APPROACHon 10-19-2024 US OB FOLLOW UP TRANSABDOMINAL APPROACH EXAM: US OB FOLLOW UP TRANSABDOMINAL APPROACH HISTORY: NADIA CISTERNA MAGNA. HUGO 12/29/2024. A2. COMPARISON: U/S [...] II, MD, PHD at 21-Oct-2024 08:41:57 AM [facility] Normal Not Available Comment on above: Order Comment: US OB SCAN FOR GROWTH Estimated Date of Delivery: 12/29/24 Gestational Age as of 10/12/2024: 28w6d Urinalysis macro (dipstick) panel (U)on 10-12-2024 Bilirubin, UA Negative Negative - 4(70) +++ mg/dL [facility] Blood, UA Negative Negative - 50 Rakesh/mcL [facility] Clarity, UA Clear [facility] Color, UA Yellow [facility] Glucose, UA Negative Negative - 1999(110) ++++ mg/dL [facility] Interpretation and review of laboratory results Abnormal [facility] Ketones, UA Negative Negative - 160(16) ++++ mg/dL [facility] Leukocytes, UA Positive Negative - 500+++ Matti/mcL [facility] Comment on above: small Nitrite, UA Negative Negative - Positive [facility] pH, UA 6 5 - 9 [facility] Protein, UA Trace Negative - 2000(20) ++++ mg/dL [facility] Spec Grav, UA 1.03 1 - 1.03 [facility] Urobilinogen, UA 0.2 0.2 - 12 mg/dL [facility] IGP,APTIMA HPV,AGE GDLNon AGE GDLN ACOG TESTING Note . [facility] Comment on above: TESTS RESULT FLAG UN ITS REF RANGE LAB Clinician Provided Cytology Information Source.............[employer] Other.............. No. of containers..01 ThinPrep Vial Age Nilda VALE Krista... 32 FLAG LEGEND: L-Low Normal,H-High Normal,LL-Alert Low,HH-Alert High <-Panic Low,>-Panic High,A-Abnormal,AA-Critical Abnormal Performed at: 01 =G [address] [id number] Joann Denney MD, HPV APTIMA Negative Negative [facility] Comment on above: This nucleic acid am plification test detects fourteen high- risk HPV types (16,18,31,33,35,39,45,51,52,56,58,59,66,68) without differentiation. Performed at: =[address] [id number] Tool Grinding Technician: Joann Denney MD, Phone: [phone] Performed at: - [address] [id number] Tool Grinding Technician: Joann Denney MD, Phone: [phone] IGP, APTIMA HPV, RFX 16/18,45 Note . [facility] Comment on above: TESTS RESULT FLAG U NITS REF RANGE LAB DIAGNOSIS: 02 NEGATIVE FOR INTRAEPITHELIAL LESION OR MALIGNANCY. Specimen adequacy: 02 Satisfactory for evaluation. No endocervical component is identified. An endocervical component is not commonly seen in the patient. Performed by: 02 Mindy Martel Animal Care Service Worker ([facility]) . 02 Note: Note 02 The Pap [...] <-Panic Low,>-Panic High,A-Abnormal,AA-Critical Abnormal Performed at: [address] [id number] Joann Denney MD, SPATULA-ALONE [facility] Urinalysis macro (dipstick) panel (U)on 09-14-2024 Bilirubin, UA Negative Negative - 4(70) +++ mg/dL [facility] Blood, UA Negative Negative - 50 Rakesh/mcL [facility] Clarity, UA Clear [facility] Color, UA Yellow [facility] Glucose, UA Negative Negative - 2000(110) ++++ mg/dL [facility] Interpretation and review of laboratory results Normal [facility] Ketones, UA Negative Negative - 160(16) ++++ mg/dL [facility] Leukocytes, UA Negative Negative - 500+++ Matti/mcL [facility] Nitrite, UA Negative Negative - Positive [facility] pH, UA 5.5 5 - 9 [facility] Protein, UA Negative Negative - 1999(20) ++++ mg/dL [facility] Spec Grav, UA 1.03 1 - 1.03 [facility] Urobilinogen, UA 1.0 0.2 - 12 mg/dL [facility] RECURRENT VAGINITIS (HTRX)on 09-11-2024 ATOPOBIUM VAGINAE 0 [facility] ATOPOBIUM VAGINAE Not detected [facility] BVAB 2,3 (BACTERIAL VAGINOSIS ASSOCIATED BACTERIA 2, 3); MOBILUNCUS SPP 0 [facility] BVAB 2,3 (BACTERIAL VAGINOSIS ASSOCIATED BACTERIA 2, 3); MOBILUNCUS SPP Not detected [facility] JEREMY ALBICANS, PARAPSILOSIS, TROPICALIS 0 [facility] JEREMY ALBICANS, PARAPSILOSIS, TROPICALIS Not detected [facility] JEREMY GLABRATA 0 [facility] JEREMY GLABRATA Not detected [facility] JEREMY KRUSEI 0 [facility] JEREMY KRUSEI Not detected [facility] CHLAMYDIA TRACHOMATIS 0 [facility] CHLAMYDIA TRACHOMATIS Not detected N [facility] GARDNERELLA VAGINALIS 0 [facility] GARDNERELLA VAGINALIS Not detected N [facility] MEGASPHAERA (TYPES 1, 2) 0 [facility] MEGASPHAERA (TYPES 1, 2) Not detected [facility] MYCOPLASMA GENITALIUM 0 [facility] MYCOPLASMA GENITALIUM Not detected N [facility] NEISSERIA GONORRHOEAE 0 [facility] NEISSERIA GONORRHOEAE Not detected N [facility] TRICHOMONAS VAGINALIS 0 [facility] TRICHOMONAS VAGINALIS Not detected N [facility] US OB 14+ WEEKS ANATOMY SCAN on [...] II, MD, PHD at 15-Aug-2024 07:21:28 AM [facility] Normal Not Available Comment on above: Order Comment: US OB ANATOMY SINGLE W US OB CERVICAL LENGTH Estimated Date of Delivery: 12/29/24 Gestational Age as of 07/20/2024: 16w6d AFP, SERUM, OPEN SPINA BIFID Aon 07-22-2024 AFP MOM 1.18 . [facility] AFP VALUE 42.2 ng/mL . [facility] COMMENT: Comment . [facility] Comment on above: Alma Chaudhary , Ph.D., [facility] Director References: Available Upon Request. Multiples Of Median Cutoffs For AFP Elevations Briscoe 2.5 Black 2.8 IDD 2.0 Twins 4.5 Abbreviation Definitions IDD - Insulin Dep Diabetes OSBR - Open Spina Bifida Risk For further inquiries contact [employer] at [phone]. This test was developed and its performance characteristics determined by [employer]. It has not been cleared or approved by the Food and Drug Administration. Performed at: - [facility] [address], [place], [place] [id number] Tool Grinding Technician: Oz Harkins [facility], Phone: [phone] GEST. AGE ON COLLECTION DATE 16.9 . weeks [facility] GESTAT. AGE BASED ON LMP . [facility] Comment on above: Recalculations are n ot recommended when gestational dating by LMP and ultrasound are within 10 days. INSULIN DEP DIABETES No . [facility] INTERPRETATION Comment . [facility] Comment on above: Interpretation: Scre en [...] Customer Services to discuss available options. The [employer] recommends amniocentesis be offered to women age 35 and older. [age] [facility] MULTIPLE GESTATION No . [facility] OSBR RISK 1 IN 6916 . [facility] RACE . [facility] RESULTS Report . [facility] TEST RESULTS: Negative . [facility] WEIGHT 159 . lbs [facility] N N LMP [id number] 6 16 N 1 159 N N N N N White/ [facility] Urinalysis macro (dipstick) panel (U)on 07-20-2024 Bilirubin, UA Negative Negative - 4(70) +++ mg/dL [facility] Blood, UA Negative Negative - 50 Rakesh/mcL [facility] Clarity, UA Clear [facility] Color, UA Yellow [facility] Glucose, UA Negative Negative - 2000(110) ++++ mg/dL [facility] Interpretation and review of laboratory results Abnormal [facility] Ketones, UA Negative Negative - 160(16) ++++ mg/dL [facility] Leukocytes, UA Trace Negative - 500+++ Matti/mcL [facility] Nitrite, UA Negative Negative - Positive [facility] pH, UA 6 5 - 9 [facility] Protein, UA Negative Negative - 2000(20) ++++ mg/dL [facility] Spec Grav, UA 1.03 1 - 1.03 [facility] Urobilinogen, UA 0.2 0.2 - 12 mg/dL [facility] ALL CBC WITH AUTO DIFFon BASOPHILS ABSOLUTE AUTO 0 [facility] Basophils/100 WBC (Bld) 0.3 % 0.2 - 2.0 % [facility] Eosinophils/100 WBC (Bld) 0.7 % Low 0.9 - 7.0 % [facility] Erythrocyte distribution width (RBC) [Ratio] 14.4 % 11.0 - 15.0 % [facility] Hematocrit (Bld) [Volume fraction] 42.1 % 36.0 - 48.0 % [facility] Hemoglobin (Bld) [Mass/Vol] 13.6 g/dL 12.0 - 16.0 g/dL [facility] IMMATURE GRANULOCYTES ABS AUTO 0.02 [facility] Immature granulocytes/100 WBC (Bld) 0.3 % 0.0 - 0.5 % [facility] Interpretation and review of laboratory results Abnormal [facility] LYMPHOCYTES ABSOLUTE AUTO 1.2 [facility] Lymphocytes/100 WBC (Bld) 15.9 % Low 20.5 - 60.0 % [facility] MCH (RBC) [Entitic mass] 27.6 pg 26.7 - 34.0 pg [facility] MCHC (RBC) [Mass/Vol] 32.3 g/dL 29.9 - 35.2 g/dL [facility] MCV (RBC) [Entitic vol] 85.4 fL 81.0 - 99.0 fL [facility] MONOCYTES ABSOLUTE AUTO 0.4 [facility] Monocytes/100 WBC (Bld) 5.2 % 1.7 - 12.0 % [facility] NEUTROPHILS ABSOLUTE AUTO 5.7 [facility] Neutrophils/100 WBC (Bld) 77.6 % High 43.0 - 75.0 % [facility] Platelet mean volume (Bld) [Entitic vol] 10 fL 9.5 - 13.5 fL [facility] EO # 0.1 [facility] PLT [address] [facility] RBC 4.[address] [facility] WBC 7.4 [facility] Urine Cultureon 06-22-2024 Bacteria identified Cx Nom (U) <9,000 colonies/ml mixed bacterial skin contaminants 2 Days PERFORMED BY: [facility] [address] [id number] PATHOLOGIST PHARMACY SERVICES REPRESENTATIVE JONO WILSON M.D. Normal [facility] Comment on above: Performed By: #### C UU #### [facility] [address] [place], [place] [id number] [facility] HCG ( test) Ql (U)o n 06-18-2024 Interpretation and review of laboratory results Abnormal [facility] Preg Test, Ur Positive Negative [facility] Urinalysis macro (dipstick) panel (U)on 06-18-2024 Bilirubin, UA Negative Negative - 4(70) +++ mg/dL [facility] Blood, UA Negative Negative - 50 Rakesh/mcL [facility] Clarity, UA Clear [facility] Color, UA Yellow [facility] Glucose, UA Negative Negative - 2000(110) ++++ mg/dL [facility] Interpretation and review of laboratory results Abnormal [facility] Ketones, UA Negative Negative - 160(16) ++++ mg/dL [facility] Leukocytes, UA Negative Negative - 500+++ Matti/mcL [facility] Nitrite, UA Negative Negative - Positive [facility] pH, UA 6.5 5 - 9 [facility] Protein, UA Negative Negative - 2000(20) ++++ mg/dL [facility] Spec Grav, UA 1.015 1 - 1.03 [facility] Urobilinogen, UA 0.2 0.2 - 12 mg/dL [facility] AFP, SERUM, OPEN SPINA BIFID Aon 07-20-2023 AFP MOM 1.21 . [facility] AFP VALUE 70.2 ng/mL . [facility] COMMENT: Comment . [facility] Comment on above: Alma Chaudhary , Ph.D., [facility] Director References: Available Upon Request. Multiples Of Median Cutoffs For AFP Elevations Briscoe 2.5 Black 2.8 IDD 2.0 Twins 4.5 Abbreviation Definitions IDD - Insulin Dep Diabetes OSBR - Open Spina Bifida Risk For further inquiries contact [employer] at [phone]. This test was developed and its performance characteristics determined by [employer]. It has not been cleared or approved by the Food and Drug Administration. Performed at: - [facility] [address] [place], [place] [id number] Tool Grinding Technician: Oz Harkins [facility], Phone: [phone] GEST. AGE ON COLLECTION DATE 20.4 . weeks [facility] GESTAT. AGE BASED ON LMP . [facility] Comment on above: Recalculations are n ot recommended when gestational dating by LMP and ultrasound are within 10 days. INSULIN DEP DIABETES No . [facility] INTERPRETATION Comment . [facility] Comment on above: Interpretation: Scre en [...] Customer Services to discuss available options. The [employer] recommends amniocentesis be offered to women age 35 and older. [age] [facility] MULTIPLE GESTATION No . [facility] OSBR RISK 1 IN 6301 . [facility] RACE . [facility] RESULTS Report . [facility] TEST RESULTS: Negative . [facility] WEIGHT 159 . lbs [facility] N N LMP [id number] 3 16 N 1 Y 159 N N N N White/ [facility] Urinalysis macro (dipstick) panel (U)on 07-18-2023 Bilirubin, UA Negative Negative - 4(70) +++ mg/dL [facility] Blood, UA Negative Negative - 50 Rakesh/mcL [facility] Clarity, UA Clear [facility] Color, UA Yellow [facility] Glucose, UA Negative Negative - 1999(110) ++++ mg/dL [facility] Interpretation and review of laboratory results Normal [facility] Ketones, UA Negative Negative - 160(16) ++++ mg/dL [facility] Leukocytes, UA Negative Negative - 500+++ Matti/mcL [facility] Nitrite, UA Negative Negative - Positive [facility] pH, UA 5.5 5 - 9 [facility] Protein, UA Negative Negative - 2000(20) ++++ mg/dL [facility] Spec Grav, UA 1.020 1 - 1.03 [facility] Urobilinogen, UA 1.0 0.2 - 12 mg/dL [facility] Free Cell DNAon 2022 [facility] Amphetamine Screen Ql (U)Ord ered By: Ryan Poe on 12-19-2022 Amphetamines Ql (U) Negative Negative [facility] Automated erythrocytes count in urine sediment (number/area)Ordered By: Ryan Poe on 12-19-2022 RBC Auto (Urine sed) [#/Area] 5-9 [HPF] 0-4 [facility] Automated leukocytes count i n urine sediment (number/area)Ordered By: Ryan Poe on 12-19-2022 WBC Auto (Urine sed) [#/Area] 10-19 [HPF] 0-4 [facility] Barbiturates [Presence] in U rine by Screen methodOrdered By: Ryan Poe on 12-19-2022 Barbiturates Screen Ql (U) Negative Negative [facility] Benzodiazepines Screen Ql (U )Ordered By: Ryan Poe on 12-19-2022 Benzodiazepines Ql (U) Negative Negative [facility] Benzoylecgonine [Presence] i n Urine by Screen methodOrdered By: Ryan Poe on 12-19-2022 Benzoylecgonine Screen Ql (U) Negative Negative [facility] Bilirubin Test strip Ql (U)O rdered By: Ryan Poe on 12-19-2022 Bilirubin Ql (U) Negative Negative [facility] Cannabinoids [Presence] in U rine by Screen methodOrdered By: Ryan Poe on 12-19-2022 Cannabinoids Screen Ql (U) Positive Negative [facility] Comment on above: These are unconfirme d results and should not be used for legal purposes. Drug Cut-Off Concentration: AMPH 1000 ng/mL SEEMA 200 ng/mL LAZ 200 ng/mL COCM 300 ng/mL OP 300 ng/mL PCP 25 ng/mL THC 20 ng/mL Color Auto (U)Ordered By: Fernando Poe on 12-19-2022 Color (U) Yellow Yellow [facility] HCG ( test) IA.rapi d Ql (U)Ordered By: Ryan Poe on 12-19-2022 HCG ( test) Ql (U) Negative [facility] Ketones Auto test strip (U) [Mass/Vol]Ordered By: Ryan Poe on 12-19-2022 Ketones (U) [Mass/Vol] 1+ Negative [facility] - UrinalysisOrder ed By: Ryan Poe on 12-19-2022 Hyaline casts LM Ql (Urine sed) 0-8 [LPF] 0-8 [facility] Nitrite Test strip Ql (U)Ord ered By: Ryan Poe on 12-19-2022 Nitrite Ql (U) Negative Negative [facility] Opiates [Presence] in Urine by Screen methodOrdered By: Ryan Poe on 12-19-2022 Opiates Screen Ql (U) Negative Negative [facility] Phencyclidine Screen Ql (U)O rdered By: Ryan Poe on 12-19-2022 Phencyclidine Ql (U) Negative Negative [facility] Protein Auto test strip (U) [Mass/Vol]Ordered By: Ryan Poe on 12-19-2022 Protein (U) [Mass/Vol] Negative Negative [facility] Specific gravity Auto test s trip (U) [Rel density]Ordered By: Ryan Poe on 12-19-2022 Specific gravity (U) [Rel density] 1.025 1.001-1.03 0 [facility] Squamous epithelial cells de tection in urine sediment by light microscopyOrdered By: Ryan Poe on 12-19-2022 Epithelial cells.squamous LM Ql (Urine sed) 3-4 [HPF] 0-2 [facility] Urine bacteria detection by automated methodOrdered By: Ryan Poe on 12-19-2022 Bacteria Auto Ql (U) None seen None Seen [facility] Urine clarity by refractomet ry automatedOrdered By: Ryan Poe on 12-19-2022 Clarity Refractometry automated (U) Clear Clear [facility] Urine culture routineOrdered By: Ryan Poe on 12-19-2022 Bacteria identified Cx Nom (U) 2 Days [facility] Urine glucose measurement by automated test strip (mass/volume)Ordered By: Ryan Poe on 12-19-2022 Glucose Auto test strip (U) [Mass/Vol] Normal mg/dL Normal [facility] Urine hemoglobin detection b y automated test stripOrdered By: Ryan Poe on 12-19-2022 Hemoglobin Auto test strip Ql (U) Negative Negative [facility] Urine leukocyte esterase det ection by automated test stripOrdered By: Ryan Poe on 12-19-2022 Leukocyte esterase Auto test strip Ql (U) 2+ Negative [facility] Urobilinogen Auto test strip (U) [Mass/Vol]Ordered By: Ryan Poe on 12-19-2022 Urobilinogen (U) [Mass/Vol] Normal mg/dL Normal [facility] pH Auto test strip (U)Ordere d By: Ryan Poe on 12-19-2022 pH (U) 5.5 [pH] 5.0-9.0 [facility] Amylase [Enzymatic activity/ volume] in Serum or PlasmaOrdered By: Ryan Poe on 12-18-2022 Amylase [Catalytic activity/Vol] 35 U/L 29-103 [facility] Aspartate aminotransferase [ Enzymatic activity/volume] in Serum or PlasmaOrdered By: Ryan Poe on 12-18-2022 AST [Catalytic activity/Vol] 26 U/L 13-39 [facility] Basophils Auto (Bld) [#/Vol] Ordered By: Ryan Poe on 12-18-2022 Basophils (Bld) [#/Vol] 0.1 10*3/uL 0.0-0.2 [facility] Basophils/100 WBC Auto (Bld) Ordered By: Ryan Poe on 12-18-2022 Basophils/100 WBC (Bld) 0.7 % . [facility] Carbon dioxide, total [Moles /volume] in Serum or PlasmaOrdered By: Ryan Poe on 12-18-2022 CO2 [Moles/Vol] 20.0 mmol/L 21.0-31.0 [facility] Chloride [Moles/volume] in S gwendolyn or PlasmaOrdered By: Ryan Poe on 12-18-2022 Chloride [Moles/Vol] 105 mmol/L 98-107 [facility] Choriogonadotropin.beta subu nit [Units/volume] in Serum or PlasmaOrdered By: Ryan Poe on 12-18-2022 HCG.beta subunit Qn Negative [facility] Creatine kinase [Enzymatic a ctivity/volume] in Serum or PlasmaOrdered By: Ryan Poe on 12-18-2022 CK [Catalytic activity/Vol] 50 U/L 30-223 [facility] Creatinine [Mass/volume] in Serum or PlasmaOrdered By: Ryan Poe on 12-18-2022 Creatinine [Mass/Vol] 0.84 mg/dL 0.60-1.20 [facility] Eosinophils Auto (Bld) [#/Vo l]Ordered By: Ryan Poe on 12-18-2022 Eosinophils (Bld) [#/Vol] 0.0 10*3/uL 0.0-0.45 [facility] Eosinophils/100 WBC Auto (Bl d)Ordered By: Ryan Poe on 12-18-2022 Eosinophils/100 WBC (Bld) 0.2 % . [facility] Erythrocyte distribution wid th Auto (RBC) [Ratio]Ordered By: Ryan Poe on 12-18-2022 Erythrocyte distribution width (RBC) [Ratio] 14.4 % 11.9-15.3 [facility] Ethanol [Mass/volume] in Ser um or PlasmaOrdered By: Ryan Poe on 12-18-2022 Ethanol [Mass/Vol] mg/dL [facility] Ethanol [Mass/Vol] TNP [facility] Comment on above: Test not performed Glucose [Mass/volume] in Ser um or PlasmaOrdered By: Ryan Poe on 12-18-2022 Glucose [Mass/Vol] 93 mg/dL 70-100 [facility] Comment on above: ADA recommended refe rence rangeRandom Glucose Reference Range is dependent on time and content of last meal. Glucose of more than 200 mg/dL in a nonstressed, ambulatory subject supports the diagnosis of Diabetes Mellitus. Hematocrit Auto (Bld) [Volum e fraction]Ordered By: Ryan Poe on 12-18-2022 Hematocrit (Bld) [Volume fraction] 36.2 % 34.0-46.4 [facility] Hemoglobin [Mass/volume] in BloodOrdered By: Ryan Poe on 12-18-2022 Hemoglobin (Bld) [Mass/Vol] 11.9 g/dL 11.8-15.4 [facility] Leukocytes [#/volume] correc osmel for nucleated erythrocytes in Blood by Automated counOrdered By: Ryan Poe on 12-18-2022 WBC corrected for nucl RBC Auto (Bld) [#/Vol] 10.3 10*3/uL 3.8-11.6 [facility] Lipase [Enzymatic activity/v olume] in Serum or PlasmaOrdered By: Ryan Poe on 12-18-2022 Lipase [Catalytic activity/Vol] 29.0 U/L 11.0-82.0 [facility] Lymphocytes Auto (Bld) [#/Vo l]Ordered By: Ryan Poe on 12-18-2022 Lymphocytes (Bld) [#/Vol] 2.2 10*3/uL 1.00-4.8 [facility] Lymphocytes/100 WBC Auto (Bl d)Ordered By: Ryan Poe on 12-18-2022 Lymphocytes/100 WBC (Bld) 21.8 % . [facility] MCH Auto (RBC) [Entitic mass ]Ordered By: Ryan Poe on 12-18-2022 MCH (RBC) [Entitic mass] 26.9 pg 24.7-34.3 [facility] MCHC Auto (RBC) [Mass/Vol]Or dered By: Ryan Poe on 12-18-2022 MCHC (RBC) [Mass/Vol] 32.8 g/dL 32.0-35.0 [facility] MCV Auto (RBC) [Entitic vol] Ordered By: Ryan Poe on 12-18-2022 MCV (RBC) [Entitic vol] 82.1 fL 80-100 [facility] Monocyte distribution width [Entitic volume] in Blood by AutomatedOrdered By: Ryan Poe on 12-18-2022 Monocyte distribution width Auto (Bld) [Entitic vol] 22.19 % 0.00-20.00 [facility] Comment on above: For adults in ED, MD W > 20.0 may be associated with a higher risk of sepsis during the first 12 hrs of hospital admission Monocytes Auto (Bld) [#/Vol] Ordered By: Ryan Poe on 12-18-2022 Monocytes (Bld) [#/Vol] 0.8 10*3/uL 0.0-0.8 [facility] Monocytes/100 WBC Auto (Bld) Ordered By: Ryan Poe on 12-18-2022 Monocytes/100 WBC (Bld) 7.4 % . [facility] Neutrophils Auto (Bld) [#/Vo l]Ordered By: Ryan Poe on 12-18-2022 Neutrophils (Bld) [#/Vol] 7.2 10*3/uL 1.8-7.7 [facility] Neutrophils/100 WBC Auto (Bl d)Ordered By: Ryan Poe on 12-18-2022 Neutrophils/100 WBC (Bld) 69.9 % . [facility] No Panel InformationOrdered By: Ryan Poe on 12-18-2022 Estimated GFR (CKD-EPI) > 60.0 mL/Min [facility] Creatinine Clearance (Chem 98.76 [facility] Nucleated erythrocytes [Pres ence] in Blood by Automated countOrdered By: Ryan Poe on 12-18-2022 Nucleated RBC Auto Ql (Bld) 0.1 /100{WBC} 0-0.5 [facility] Platelet mean volume Auto (B ld) [Entitic vol]Ordered By: Ryan Poe on 12-18-2022 Platelet mean volume (Bld) [Entitic vol] 8.1 fL 6.3-10.7 [facility] Platelets Auto (Bld) [#/Vol] Ordered By: Ryan Poe on 12-18-2022 Platelets (Bld) [#/Vol] 223 10*3/uL 150-450 [facility] Potassium [Moles/volume] in Serum or PlasmaOrdered By: Ryan Poe on 12-18-2022 Potassium [Moles/Vol] 3.5 mmol/L 3.5-5.1 [facility] RBC Auto (Bld) [#/Vol]Ordere d By: Ryan Poe on 12-18-2022 RBC (Bld) [#/Vol] 4.42 10*6/uL 3.60-5.00 [facility] Serum or plasma anion gap de terminationOrdered By: Ryan Poe on 12-18-2022 Anion gap [Moles/Vol] 14.5 mmol/L 6.0-15.0 [facility] Sodium [Moles/volume] in Ser um or PlasmaOrdered By: Ryan Poe on 12-18-2022 Sodium [Moles/Vol] 136 mmol/L 136-145 [facility] Urea nitrogen [Mass/volume] in Serum or PlasmaOrdered By: Ryan Poe on 12-18-2022 Urea nitrogen [Mass/Vol] 21 mg/dL 7-25 [facility] WBC Auto (Bld) [#/Vol]Ordere d By: Ryan Poe on 12-18-2022 WBC (Bld) [#/Vol] 10.3 10*3/uL 3.8-11.6 [facility] PRBC LEUKOREDUCEDon 07-14-19 23 ABO and Rh group Nom (Bld) Cross Match Result Compatible Unit Blood Type A Pos Unit Number [id number] Status Information Released Specimen Exp Date Product ID Red Blood Cells Product Code [id number] Cross Match Result Compatible Unit Blood Type A Pos Unit Number [id number] Status Information Transfused Product ID Red Blood Cells Product Code [id number] Normal [facility] Comment on above: Performed By: #### R UBIGG #### [facility] [address] [place] [address] Dr. Juan Antonio Ibarra CBC AUTO DIFFon 07-07-2022 BASO # 0.0 103/ul Normal 0.0-0.1 [facility] Comment on above: Performed By: #### A 1C #### [facility] [address] [place] [address] Dr. Juan Antonio Ibarra Basophils/100 WBC (Bld) 0.3 % Normal 0.2-2.0 [facility] Comment on above: Performed By: #### A 1C #### [facility] [address] [place] [address] Dr. Juan Antonio Ibarra EO # 0.1 103/ul Normal 0.0-0.7 [facility] Comment on above: Performed By: #### A 1C #### [facility] [address] [place] [address] Dr. Juan Antonio Ibarra Eosinophils/100 WBC (Bld) 0.9 % Normal 0.9-7.0 [facility] Comment on above: Performed By: #### A 1C #### [facility] [address] [place] [address] Dr. Juan Antonio Ibarra Erythrocyte distribution width (RBC) [Ratio] 14.5 % Normal 11.0-15.0 [facility] Comment on above: Performed By: #### A 1C #### [facility] [address] [place] [address] Dr. Juan Antonio Ibarra Hematocrit (Bld) [Volume fraction] 22.5 % Critically low 36.0-48.0 [facility] Comment on above: Performed By: #### A 1C #### [facility] [address] [place] [address] Dr. Juan Antonio Ibarra Hemoglobin (Bld) [Mass/Vol] 7.9 g/dL Critically low 12.0-16.0 [facility] Comment on above: Performed By: #### A 1C #### [facility] [address] [place] [address] Dr. Juan Antonio Ibarra IG # 0.10 10e3/ul Critically high 0.00-0.03 [facility] Comment on above: Performed By: #### A 1C #### [facility] [address] [place] [address] Dr. Juan Antonio Ibarra IG % 0.9 % Critically high 0.0-0.5 [facility] Comment on above: Performed By: #### A 1C #### [facility] [address] [place] [address] Dr. Juan Antonio Ibarra LYMPH # 1.6 103/ul Normal 1.2-3.8 [facility] Comment on above: Performed By: #### A 1C #### [facility] [address] [place] [address] Dr. Juan Antonio Ibarra Lymphocytes/100 WBC (Bld) 14.0 % Critically low 20.5-60.0 [facility] Comment on above: Performed By: #### A 1C #### [facility] [address] [place] [address] Dr. Juan Antonio Ibarra MANUAL DIFF REQ NO Normal [facility] Comment on above: Performed By: #### A 1C #### [facility] [address] [place] [address] Dr. Juan Antonio Ibarra MCH (RBC) [Entitic mass] 26.4 pg Critically low 26.7-34.0 [facility] Comment on above: Performed By: #### A 1C #### [facility] [address] [place] [address] Dr. Juan Antonio Ibarra MCHC (RBC) [Mass/Vol] 35.1 g/dL Normal 29.9-35.2 [facility] Comment on above: Performed By: #### A 1C #### [facility] [address] [place] [address] Dr. Juan Antonio Ibarra MCV (RBC) [Entitic vol] 75.3 fL Critically low 81.0-99.0 [facility] Comment on above: Performed By: #### A 1C #### [facility] [facility] [address] [place] [address] Dr. Juan Antonio Ibarra MONO # 0.7 103/ul Normal 0.3-0.8 [facility] Comment on above: Performed By: #### A 1C #### [facility] [address] [place] [address] Dr. Juan Antnoio Ibarra Monocytes/100 WBC (Bld) 6.2 % Normal 1.7-12.0 [facility] Comment on above: Performed By: #### A 1C #### [facility] [address] [place] [address] Dr. Juan Antonio Ibarra NEUT # 9.1 103/ul Critically high 1.4-6.5 [facility] Comment on above: Performed By: #### A 1C #### [facility] [address] [place] [address] Dr. Juan Antonio Ibarra Neutrophils/100 WBC (Bld) 77.7 % Critically high 43.0-75.0 [facility] Comment on above: Performed By: #### A 1C #### [facility] [address] [place] [address] Dr. Juan Antonio Ibarra Platelet mean volume (Bld) [Entitic vol] 9.2 fL Critically low 9.5-13.5 [facility] Comment on above: Performed By: #### A 1C #### [facility] [address] [place] [address] Dr. Juan Antonio Ibarra PLT 143 103/ul Critically low 150-450 [facility] Comment on above: Performed By: #### A 1C #### [facility] [address] [place] [address] Dr. Juan Antonio Ibarra RBC 2.99 106/ul Critically low 4.20-5.40 [facility] Comment on above: Performed By: #### A 1C #### [facility] [address] [place] [address] Dr. Juan Antonio Ibarra WBC 11.7 103/ul Critically high 4.0-11.0 [facility] Comment on above: Performed By: #### A 1C #### [facility] [address] [place] [address] Dr. Juan Antonio Ibarra CBC AUTO DIFFon 07-06-2022 BASO # 0.0 103/ul Normal 0.0-0.1 [facility] Comment on above: Performed By: #### A 1C #### [facility] [address] [place] [address] Dr. Juan Antonio Ibarra Basophils/100 WBC (Bld) 0.3 % Normal 0.2-2.0 [facility] Comment on above: Performed By: #### A 1C #### [facility] [address] [place] [address] Dr. Juan Antonio Ibarra EO # 0.1 103/ul Normal 0.0-0.7 [facility] Comment on above: Performed By: #### A 1C #### [facility] [address] [place] [address] Dr. Juan Antonio Ibarra Eosinophils/100 WBC (Bld) 0.8 % Critically low 0.9-7.0 [facility] Comment on above: Performed By: #### A 1C #### [facility] [address] [place] [address] Dr. Juan Antonio Ibarra Erythrocyte distribution width (RBC) [Ratio] 14.3 % Normal 11.0-15.0 [facility] Comment on above: Performed By: #### A 1C #### [facility] [address] [place] [address] Dr. Juan Antonio Ibarra Hematocrit (Bld) [Volume fraction] 23.0 % Critically low 36.0-48.0 [facility] Comment on above: Performed By: #### A 1C #### [facility] [address] [place] [address] Dr. Juan Antonio Ibarra Hemoglobin (Bld) [Mass/Vol] 7.5 g/dL Critically low 12.0-16.0 [facility] Comment on above: Performed By: #### A 1C #### [facility] [address] [place] [address] Dr. Juan Antonio Ibarra IG # 0.07 10e3/ul Critically high 0.00-0.03 [facility] Comment on above: Performed By: #### A 1C #### [facility] [address] [place] [address] Dr. Juan Antonio Ibarra IG % 0.6 % Critically high 0.0-0.5 [facility] Comment on above: Performed By: #### A 1C #### [facility] [address] [place] [address] Dr. Juan Antonio Ibarra LYMPH # 2.1 103/ul Normal 1.2-3.8 [facility] Comment on above: Performed By: #### A 1C #### [facility] [address] [place] [address] Dr. Juan Antonio Ibarra Lymphocytes/100 WBC (Bld) 18.8 % Critically low 20.5-60.0 [facility] Comment on above: Performed By: #### A 1C #### [facility] [address] [place] [address] Dr. Juan Antonio Ibarra MANUAL DIFF REQ NO Normal [facility] Comment on above: Performed By: #### A 1C #### [facility] [address] [place] [address] Dr. Juan Antonio Ibarra MCH (RBC) [Entitic mass] 26.0 pg Critically low 26.7-34.0 [facility] Comment on above: Performed By: #### A 1C #### [facility] [address] [place] [address] Dr. Juan Antonio Ibarra MCHC (RBC) [Mass/Vol] 32.6 g/dL Normal 29.9-35.2 [facility] Comment on above: Performed By: #### A 1C #### [facility] [address] [place] [address] Dr. Juan Antonio Ibarra MCV (RBC) [Entitic vol] 79.9 fL Critically low 81.0-99.0 [facility] Comment on above: Performed By: #### A 1C #### [facility] [address] [place] [address] Dr. Juan Antonio Ibarar MONO # 0.7 103/ul Normal 0.3-0.8 [facility] Comment on above: Performed By: #### A 1C #### [facility] [address] [place] [address] Dr. Juan Antonio Ibarra Monocytes/100 WBC (Bld) 6.6 % Normal 1.7-12.0 [facility] Comment on above: Performed By: #### A 1C #### [facility] [address] [place] [address] Dr. Juan Antonio Ibarra NEUT # 8.2 103/ul Critically high 1.4-6.5 [facility] Comment on above: Performed By: #### A 1C #### [facility] [address] [place] [address] Dr. Juan Antonio Ibarra Neutrophils/100 WBC (Bld) 72.9 % Normal 43.0-75.0 [facility] Comment on above: Performed By: #### A 1C #### [facility] [address] [place] [address] Dr. Juan Antonio Ibarra Platelet mean volume (Bld) [Entitic vol] 9.8 fL Normal 9.5-13.5 [facility] Comment on above: Performed By: #### A 1C #### [facility] [address] [place] [address] Dr. Juan Antonio Ibarra PLT 151 103/ul Normal 150-450 [facility] Comment on above: Performed By: #### A 1C #### [facility] [address] [place] [address] Dr. Juan Antonio Ibarra RBC 2.88 106/ul Critically low 4.20-5.40 [facility] Comment on above: Performed By: #### A 1C #### [facility] [address] [place] [address] Dr. Juan Antonio Ibarra WBC 11.3 103/ul Critically high 4.0-11.0 [facility] Comment on above: Performed By: #### A 1C #### [facility] [address] [place] [address] Dr. Juan Antonio Ibarra CBC AUTO DIFFon 07-05-2022 BASO # 0.0 103/ul Normal 0.0-0.1 [facility] Comment on above: Performed By: #### R PRQ #### [facility] [address] [place] [address] Dr. Juan Antonio Ibarra Basophils/100 WBC (Bld) 0.2 % Normal 0.2-2.0 [facility] Comment on above: Performed By: #### R PRQ #### [facility] [address] [place] [address] Dr. Juan Antonio Ibarra EO # 0.0 103/ul Normal 0.0-0.7 [facility] Comment on above: Performed By: #### R PRQ #### [facility] [address] [place] [address] Dr. Juan Antonio Ibarra Eosinophils/100 WBC (Bld) 0.4 % Critically low 0.9-7.0 [facility] Comment on above: Performed By: #### R PRQ #### [facility] [address] [place] [address] Dr. Juan Antonio Ibarra Erythrocyte distribution width (RBC) [Ratio] 14.2 % Normal 11.0-15.0 [facility] Comment on above: Performed By: #### R PRQ #### [facility] [address] [place] [address] Dr. Juan Antonio Ibarra Hematocrit (Bld) [Volume fraction] 31.0 % Critically low 36.0-48.0 [facility] Comment on above: Performed By: #### R PRQ #### [facility] [address] [address] [address] Juan Antonio Ibarra Hemoglobin (Bld) [Mass/Vol] 10.1 g/dL Critically low 12.0-16.0 [facility] Comment on above: Performed By: #### R PRQ #### [facility] [address] [place] [address] Dr. Juan Antonio Ibarra IG # 0.10 10e3/ul Critically high 0.00-0.03 [facility] Comment on above: Performed By: #### R PRQ #### [facility] [address] [place] [address] Dr. Juan Antonio Ibarra IG % 1.1 % Critically high 0.0-0.5 [facility] Comment on above: Performed By: #### R PRQ #### [facility] [address] [place] [address] Dr. Juan Antonio Ibarra LYMPH # 1.6 103/ul Normal 1.2-3.8 [facility] Comment on above: Performed By: #### R PRQ #### [facility] [address] [place] [address] Dr. Juan Antonio Ibarra Lymphocytes/100 WBC (Bld) 17.5 % Critically low 20.5-60.0 [facility] Comment on above: Performed By: #### R PRQ #### [facility] [address] [place] [address] Dr. Juan Antonio Ibarra MANUAL DIFF REQ NO Normal [facility] Comment on above: Performed By: #### R PRQ #### [facility] [address] [address] [address] Juan Antonio Ibarra MCH (RBC) [Entitic mass] 25.8 pg Critically low 26.7-34.0 [facility] Comment on above: Performed By: #### R PRQ #### [facility] [address] [place] [address] Dr. Juan Antonio Ibarra MCHC (RBC) [Mass/Vol] 32.6 g/dL Normal 29.9-35.2 [facility] Comment on above: Performed By: #### R PRQ #### [facility] [address] [place] [address] Dr. Juan Antonio Ibarra MCV (RBC) [Entitic vol] 79.3 fL Critically low 81.0-99.0 [facility] Comment on above: Performed By: #### R PRQ #### [facility] [address] [place] [address] Dr. Juan Antonio Ibarra MONO # 0.7 103/ul Normal 0.3-0.8 [facility] Comment on above: Performed By: #### R PRQ #### [facility] [address] [place] [address] Dr. Juan Antonio Ibarra Monocytes/100 WBC (Bld) 8.1 % Normal 1.7-12.0 [facility] Comment on above: Performed By: #### R PRQ #### [facility] [address] [place] [address] Dr. Juan Antonio Ibarra NEUT # 6.7 103/ul Critically high 1.4-6.5 [facility] Comment on above: Performed By: #### R PRQ #### [facility] [address] [place] [address] Dr. Juan Antonio Ibarra Neutrophils/100 WBC (Bld) 72.7 % Normal 43.0-75.0 [facility] Comment on above: Performed By: #### R PRQ #### [facility] [address] [place] [address] Dr. Juan Antonio Ibarra Platelet mean volume (Bld) [Entitic vol] 10.1 fL Normal 9.5-13.5 [facility] Comment on above: Performed By: #### R PRQ #### [facility] [address] [place] [address] Dr. Juan Antonio Ibarra PLT 202 103/ul Normal 150-450 [facility] Comment on above: Performed By: #### R PRQ #### [facility] [address] [place] [address] Dr. Juan Antonio Ibarra RBC 3.91 106/ul Critically low 4.20-5.40 [facility] Comment on above: Performed By: #### R PRQ #### [facility] [address] [place] [address] Dr. Juan Antonio Ibarra WBC 9.2 103/ul Normal 4.0-11.0 [facility] Comment on above: Performed By: #### R PRQ #### [facility] [address] [place] [address] Dr. Juan Antonio Ibarra DRUG SCREEN RAPID (URINE)on 07-05-2022 AMP Negative Normal NEGATIVE [facility] Comment on above: Performed By: #### A 1C #### [facility] [address] [place] [address] Dr. Juan Antonio Ibarra BAR Negative Normal NEGATIVE [facility] Comment on above: Performed By: #### A 1C #### [facility] [address] [place] [address] Dr. Juan Antonio Ibarra BUP Negative Normal NEGATIVE [facility] Comment on above: Performed By: #### A 1C #### [facility] [address] [place] [address] Dr. Juan Antonio Ibarra BZO Negative Normal NEGATIVE [facility] Comment on above: Performed By: #### A 1C #### [facility] [address] [place] [address] Dr. Juan Antonio Ibarra PARAM Negative Normal NEGATIVE [facility] Comment on above: Performed By: #### A 1C #### [facility] [address] [place] [address] Dr. Juan Antonio Ibarra CUT-OFFS SEE BELOW Normal [facility] Comment on above: Result Comment: AMP [...] ng/mL Performed By: #### A 1C #### [facility] [address] [place] [address] Dr. Juan Antonio Ibarra DRUG CUT HEADER DRUG CLASS TEST SYST EM CUT-OFF CONCENTRATIONS ARE FOLLOWS: Normal [facility] Comment on above: Performed By: #### A 1C #### [facility] [address] [place] [address] Dr. Juan Antonio Ibarra mAMP Negative Normal NEGATIVE [facility] Comment on above: Performed By: #### A 1C #### [facility] [address] [place] [address] Dr. Juan Antonio Ibarra MTD Negative Normal NEGATIVE [facility] Comment on above: Performed By: #### A 1C #### [facility] [address] [place] [address] Dr. Juan Antonio Ibarra OPI Negative Normal NEGATIVE [facility] Comment on above: Performed By: #### A 1C #### [facility] [address] [place] [address] Dr. Juan Antonio Ibarra OXY Negative Normal NEGATIVE [facility] Comment on above: Performed By: #### A 1C #### [facility] [address] [place] [address] Dr. Juan Antonio Ibarra PCP Negative Normal NEGATIVE [facility] Comment on above: Performed By: #### A 1C #### [facility] [address] [place] [address] Dr. Juan Antonio Ibarra PPX Negative Normal NEGATIVE [facility] Comment on above: Performed By: #### A 1C #### [facility] [address] [place] [address] Dr. Juan Antonio Ibarra TCA Negative Normal NEGATIVE [facility] Comment on above: Performed By: #### A 1C #### [facility] [address] [place] [address] Dr. Juan Antonio Ibarra THC Negative Normal NEGATIVE [facility] Comment on above: Performed By: #### A 1C #### [facility] [address] [place] [address] Dr. Juan Antonio Ibarra TYPE AND SCREENon 07-05-2022 TYPE AND SCREEN Negative Normal [facility] Comment on above: Performed By: #### T NS #### [facility] [address] [place] [address] Dr. Juan Antonio Ibarra US PREG BIOPHY [...] by: FELECIA GOLDMAN Date: 2022-06-28 15:29 Normal [facility] US PREG BIOPHY W NON STRESSo n [...] by: FELECIA GOLDMAN Date: 2022-06-21 17:20 Normal [facility] US PREG GROWTHon 06-21-2022 US PREG GROWTH [...] by: GAMALIEL MARTEL Date: 2022-06-21 13:37 Normal [facility] CULTURE URINEon 06-16-2022 CULTURE URINE Culture Observations : LIGHT GROWTH OF MIXED GENITAL ALONSO. NO POTENTIAL PATHOGENS SEEN. Normal [facility] Comment on above: Performed By: #### U RCX #### [facility] [address] [place] [address] Dr. Juan Antonio Ibarra UA (CLEAN/CATCH) DIGITAL MEDIA BUYER/MICRO I F IND.on 06-16-2022 Bilirubin Ql (U) Negative Normal NEGATIVE [facility] Comment on above: Performed By: #### U MICRO, UACSIND #### [facility] [address] [place] [address] Dr. Juan Antonio Ibarra Clarity (U) CLEAR Normal CLEAR [facility] Comment on above: Performed By: #### U MICRO, UACSIND #### [facility] [address] [place] [address] Dr. Juan Antonio Ibarra Color (U) LT. YELLOW Normal YELLOW [facility] Comment on above: Performed By: #### U MICRO, UACSIND #### [facility] [address] [place] [address] Dr. Juan Antonio Ibarra Glucose Ql (U) Negative Normal NEGATIVE [facility] Comment on above: Performed By: #### U MICRO, UACSIND #### [facility] [address] [place] [address] Dr. Juan Antonio Ibarra Hemoglobin Ql (U) Negative Normal NEGATIVE [facility] Comment on above: Performed By: #### U MICRO, UACSIND #### [facility] [address] [place] [address] Dr. Juan Antonio Ibarra Ketones Ql (U) Negative Normal NEGATIVE [facility] Comment on above: Performed By: #### U MICRO, UACSIND #### [facility] [address] [address] [address] Juan Antonio Ibarra LEUKOCYTES MODERATE Abnormal NEGATIVE [facility] Comment on above: Performed By: #### U MICRO, UACSIND #### [facility] [address] [place] [address] Dr. Juan Antonio Ibarra Nitrite Ql (U) Negative Normal NEGATIVE [facility] Comment on above: Performed By: #### U MICRO, UACSIND #### [facility] [address] [address] [address] Juan Antonio Ibarra pH (U) 6.0 [pH] Normal 5-9 [facility] Comment on above: Performed By: #### U MICRO, UACSIND #### [facility] [address] [place] [address] Dr. Juan Antonio Ibarra SPEC GRAVITY 1.020 Normal 1.005-<=1. 025 [facility] Comment on above: Performed By: #### U MICRO, UACSIND #### [facility] [address] [place] [address] Dr. Juan Antonio Ibarra UA PROTEIN Negative Normal NEGATIVE/ TRACE [facility] Comment on above: Performed By: #### U MICRO, UACSIND #### [facility] [address] [place] [address] Dr. Juan Antonio Ibarra UR MICRO IND INDICATED Normal [facility] Comment on above: Performed By: #### U MICRO, UACSIND #### [facility] [address] [place] [address] Dr. Juan Antonio Ibarra Urobilinogen Qn (U) 1.0 {Pamela'U}/dL Normal 0.2 - 1. 0 [facility] Comment on above: Performed By: #### U MICRO, UACSIND #### [facility] [address] [place] [address] Dr. Juan Antonio Ibarra URINE MICROSCOPIC ONLYon BACTERIA SMALL Abnormal NONE SEEN [facility] Comment on above: Performed By: #### U MICRO, UACSIND #### [facility] [address] [place] [address] Dr. Juan Antonio Ibarra Bacteria identified Cx Nom (U) INDICATED Normal [facility] Comment on above: Performed By: #### U MICRO, UACSIND #### [facility] [address] [address] [address] Juan Antonio Ibarar CAST NONE SEEN Normal NONE SEEN [facility] Comment on above: Performed By: #### U MICRO, UACSIND #### [facility] [address] [address] [address] Juan Antonio Ibarra Crystals LM Nom (Urine sed) NONE SEEN Normal NONE SEEN [facility] Comment on above: Performed By: #### U MICRO, UACSIND #### [facility] [address] [address] [address] Juan Antonio Ibarra Epithelial cells LM Ql (Urine sed) RARE Normal NONE SEEN /RARE [facility] Comment on above: Performed By: #### U MICRO, UACSIND #### [facility] [address] [place] [address] Dr. Juan Antonio Ibarra MUCOUS NONE SEEN Normal NONE SEEN [facility] Comment on above: Performed By: #### U MICRO, UACSIND #### [facility] [address] [address] [address] Juan Antonio Ibarra RBC NONE SEEN Abnormal 0-2 [facility] Comment on above: Performed By: #### U MICRO, UACSIND #### [facility] [address] [place] [address] Dr. Juan Antonio Ibarra WBC 2-5 Abnormal NONE SEEN [facility] Comment on above: Performed By: #### U MICRO, UACSIND #### [facility] [address] [address] [address] Juan Antonio Ibarra GROUP B STREP CULTUREon 05-18 S. agalactiae Ag Ql (Unsp spec) Culture Observations: NEGATIVE FOR GROUP B STREPTOCOCCUS. Normal [facility] Comment on above: Performed By: #### G BSCX #### [facility] [address] [place] [address] Dr. Juan Antonio Ibarra US PREG BIOPHY [...] by: GAMALIEL MARTEL Date: 2022-06-14 16:10 Normal [facility] US PREG BIOPHY W NON STRESSo n [...] by: FELECIA GOLDMAN Date: 2022-06-07 16:42 Normal [facility] US PREG BIOPHY W NON STRESSo n [...] by: FELECIA GOLDMAN Date: 2022-06-04 17:11 Normal [facility] US PREG BIOPHY W NON STRESS EXAMINATION: [...] by: FELECIA GOLDMAN Date: 2022-06-04 16:23 Normal [facility] US PREG BIOPHY W NON STRESSo n [...] by: GAMALIEL MARTEL Date: 2022-05-31 18:39 Normal [facility] US PREG BIOPHY W NON STRESSo n [...] by: FELECIA GOLDMAN Date: 2022-05-24 16:34 Normal [facility] US PREG GROWTHon 05-24-2022 US PREG GROWTH [...] FELECIA GOLDMAN Date: 2022-05-24 16:33 Normal [facility] GLUCOSE - 1HRon 04-04-2022 Glucose [Mass/Vol] 101 mg/dL Normal 74-106 [facility] Comment on above: Performed By: #### R PRQ #### [facility] [address] [place] [address] Dr. Juan Antonio Ibarra HEMOGRAM AND PLATELon 2021 Hematocrit (Bld) [Volume fraction] 33.5 % Critically low 36.0-48.0 [facility] Comment on above: Performed By: #### A 1C #### [facility] [address] [place] [address] Dr. Juan Antonio Ibarra Hemoglobin (Bld) [Mass/Vol] 10.7 g/dL Critically low 12.0-16.0 [facility] Comment on above: Performed By: #### A 1C #### [facility] [address] [place] [address] Dr. Juan Antonio Ibarra MCH (RBC) [Entitic mass] 29.3 pg Normal 26.7-34.0 [facility] Comment on above: Performed By: #### A 1C #### [facility] [address] [place] [address] Dr. Juan Antonio Ibarra MCHC (RBC) [Mass/Vol] 31.9 g/dL Normal 29.9-35.2 [facility] Comment on above: Performed By: #### A 1C #### [facility] [address] [place] [address] Dr. Juan Antonio Ibarra MCV (RBC) [Entitic vol] 91.8 fL Normal 81.0-99.0 [facility] Comment on above: Performed By: #### A 1C #### [facility] [address] [place] [address] Dr. Juan Antonio Ibarra PLT 179 103/ul Normal 150-450 [facility] Comment on above: Performed By: #### A 1C #### [facility] [address] [address] [address] Juan Antonio Ibarra RBC 3.65 106/ul Critically low 4.20-5.40 [facility] Comment on above: Performed By: #### A 1C #### [facility] [address] [address] [address] Juan Antonio Ibarra WBC 9.9 103/ul Normal 4.0-11.0 [facility] Comment on above: Performed By: #### A 1C #### [facility] [address] [place] [address] Dr. Juan Antonio Ibarra US PREG REEVAL [...] FELECIA GOLDMAN Date: 2022-03-20 20:55 Normal [facility] US PREG ANATOMY SINGLEon US PREG [...] by: FELECIA GOLDMAN Date: 2022-02-22 16:46 Normal [facility] Coding Summaryon 02-14-2022 Coding Summary HTMLBase [id number] 0SKZStZ33fdCPgqA1HL1qNOR9M PAJJRTTXVB9AKW8ylTI4LKbeO4 VybiAv AavfxSRiPZ71TRc6RBJ2gGikCP bxeB6qdFJiJ5j0PwPhMS72iF07 JXqcQOMgLzD6UvQfadseoMWo E3ibPfYcxDVmMak+PHRhYmxlIH hnWXFnZYwxAIGiLaQpcXwdGN9b Tq5qNWHjJJDqbOpjlBYuFsAw u3mvOSKzXZmmOY8xeGvwJ7YskR K6AJQaf2m9Ii45sSZ+PHRkIHN0 zRtpVLzwq258CtGzk7ugEAY4 nTHjYLyuDWO2U96gj8X6OQGlOP WiJBQ8qTQ4vW9gnSmgtoxuW2Dz tJAfGaO4RMY0wSNhnO0suXtd hphmqH0fUym+E21NQU9CGMFKCG 0UMbr9N9QwRkyibIC+KJ92AQDg HG23gIYkdPPnw9xtyHa7LuXv RMJlVKC4gNliOBsty9YpVFAwO2 4nmMWiw0S7YHYqlHafyDOuWuXq fCE5wA3aWGfmjwvkm6evqhbn Hksrp4lmvn93vX65O87wVCioHK AzVYJ4FRIiRCEsmZrnci6zyZ1v Ii8+SKypu3ars1roiAh5PjIv ORJeptTxlEauVXG2l2UqYn35M7 OpaGozg0WqOll9ae35tHHuz5H0 bIN8QCcdULRlgF1iFGvfMbY7 TKBfAjLgzK65wYVoJGdoIc4vyW iwiJmeDT3xLTFjallvXLPbmC9q EEOjsDYstFniCN5wFHVdkbnn l836GaUiPMN5NQOhxBJxN5ThhC 9tZbNvEMIcAUPwY2EcxRTnFFtp V514OVgfXlQ9HHMrqbDeT2Mq OTOvuHyeOeO1i3J9Xr2Qe4Eprn hyQXE3UHetWUC5GeDvMxWnLfX8 L5KcFoi8BNXvbYowOR0wE8Ug AHSlvjegxztchKA5OEDbXPEsiS 60fLZwWWmhXz9bi4E2f155IIUa JUXppL39Be6eqGgsZKEplIML lI4nmbfjo6ymyvycLkJsKPLiEB l9RNm0KMChuXjoPjZlJWW3QiI1 IEM8xLAzpR2wbFiaebbvqB9k Oyc+P56pxN8gWEI6SEM2snywPY RpziUvAT90JW78R2TwMnopnBGp bGU+XVIxjpIioWnsHJ5tGqKr m6jhp2LcYCaeS7PfQVSxGHlgDd c9XDJiGHD8yZW6nF3sTTZpRLjv d2O0pQV0L1MglyCwib3is3ec YPKqCXihE21bvHWtw2R1BEOrlK K2LAQokMlbBpCyqU46Zsa+PGNv aGodb9IbYhojt8aoz1kwzPn0 YpZrPODvhyYcvGyhTFY6j9BwHr 07F05bSDuyXVAcUVPeNMLoANOy aAuoyl4ceS4tHt5+PGNvbCB3 tZZ0cG3zFVGySgV7QBtyD616Ia GhxJOkCvuep1pwv4qfuRy8DjIi UKAfsfDkwFbmXPM6b3XgMe26 U15uPYwqWSMuEVRzXHXpWDKadO jvny8kjG2sKz4+NS9oi7ewpk82 eF11pXB+YLOsJDJ8yXxzYJmz YHLndV6bMAxyZeP4YTHdJjGioC 00zJGzADsdZi6wdVivsOozSM5e FJJgnzizt697PwFek1qmKXNe jTBjGLdoQCM1F63nl3E1WZPzXC KsTOO6mNE5eF7glVusjwbfmHGs iZjnagAqaQeoJPimHVixC259 IHRvcDsnPlBhdGllbnQgTmFtZT m4P7JiAta2JECfaRvyKE5ubGYd OAzuUx7zhAdvkCqdMT3qZMGn wkcao143SlTit1ljFXMbjYKcDP cgRAO3O50co4K4WBMfETJoFPL1 fHX1lY7aaEeuqqhriLGocNav faEqgVynFEijNTfoE460OSGvkP isVrDwzaXaZBZbiCJ3HT13PA07 pQHgj7B6xVO3K6RmCGMxqvco emrkpQA1IPUeAWKcqT45Mv6cwU akJe2sEUMgFUM2SGOwuPJaW3Pu eB3mQrZyPJTtWNIsX4BpoUKi NHycU396ROhnBmI3RYEqepViW3 ZeLAKxdQkaFxL0w4J4Sw3TP9S2 DK10OX77fJSqn2B7kAZ5Q6Yy OOLlrmnegvukvOG6HTXoUFQfcM 54Cp1yaXsjCl5lIDRbOLS6ARNp eWVyW5VieP6uXoShVPFeRGNf O6ObhOWbFQacZ421CLkvQgY7LS FvrxJwV5SlOUYilFshPgY2j2C2 Jo5ITZz2BI47HB37eKMtq6T8 iNA0B2RfJJAtdkjdtqeqbHA0FM YqDMYyoF10Vu3qbTdsHd3pNLFd MBJ5GWInkLLmI0LkhE3rXzNj NBKzHEFrL1YpdYVsPZgkZ742YX nfLiE2NYYlglOcQ2IiQHFqgNlu RkJ6e9D3Ay6NTZAkOA78LFN1 mVT3ZB65NK84Q0OxYmhbtNZkjZ U+PHRhYmxlIHdpZHRoPScxMDAl HbGlkHvbHW0nKv4pPYVtJMRd hScxzVIdXrVwf8viLVItNLtvSD 7xuNizF1AiyKN5HLQat2m4Lg07 G20aG8BojFA+VVDjeAV2oAD6 aM8mKcQxNtW1DQvkI279SzTfqX YlDffpk7fne7rxkYb1QyW4ZKAi ubZaxRceHQM6z7QySo38M21i IHdpZHRoPSIxNSUiIHZhbGlnbj 5mbZ8fWi0+OMQwdFL6aSN4pT9n XrQqXqX0TSraH799RqZktESe Gsjtv4bpq7njoGy1KgYzEHDvsw WouXpzJEV9b3LcHq80V9IkwWca v0YjBtn1hw07gPHld9Y5tBD6 G2RnIWLqyrlveAFkwXfoST2aCR OowbubPERsnW5cPCDpJ4d3JeUt XhU3WRefO6CvddF2HWWxxVEb DZgkVXQ5T08sa0K7HUVeNILePZ T7pCI7mN0hkRitopqymOKbaTtg bnLzbYyqSHboPSdaG465RFLh xQqxEVZguT4iJSBnwVBcoVbtYB 4wNTBpbjsnPlNURUlOLCBWSVJH MA1DJYPJJNR7H1MqFqw4WTRm wBtrQC0vnPDpNWywDn2qlZfwjQ seOT1bVALygqagOWGvnA2qZXVf lPXpuIteLQ8jXPFidayit692 IoHgWQQ3GHCypZYeK8JbtK8mGa BwTZYzQEWoR6BlqVWqDQsaH185 XXbkAuW8UAEowuCeJ4ItIVDn fIcyLhR2e3V9Jq0nJI6xBY4oBD hjJR84AJ20aNQgg1N5kJL3C2Ph ZIPxhtcurokvpYR4DDYiBMWd vS37mLOiMMupLy0wn1Y2y647GH QvKKLupN99Am1buXvkMJXnwDLU qD2wgzvvu7eqfsghPcDsDTFo JGz9ALi5RIKdkJxnRpXzRSV3Vp W9CHY2hLIpdV8nxRntjadpsO1a Oyc+NuktWUJwvwT1K4EkKmk6 IMTxeJeyYQ8jjGGoQBelTg2odS oolImmVS5jYNUxwaxkQRWvlE5t PAHzfSSxmExoIL3aHVDijzgn l564EiOdOJZ8OJOjuAVbL8BcxR 7vQaIvJNHmJVDvT9ZwoIEkIIzk O694NCwrJpY8WMQmlmSwX5Nx RCRiqBfoObV5g4M3Th3AIW8YBB U8R1OcUzz4FENriHldIU9ecNBx OMvyHt6psXlusTonTA0tRPPv ozdyRZOznT9wOHRorECfqTkwDU 4cOXYgoglzn315IvVvPWG4WWQn sUEqG5RyuX1qQqWgPCZlWCHo K2IfkJZmKGfzD954SPbtUpE6SV BztpVoU8BtLMOorCydXtW7u0W5 Co9XHCefjJA+ND16xf18C6Md XnfwAaf7KIVxEAB5fCQ0jM8zUA VtZSknm0X5lQG7N2ChvgSure8i m7uoIAAdUDkeD17sfPZpr0V3 VRNtiCJ7IAFgkBbyAnXppN36Dg c+OLNrwHiih6LcCiorp5vob9ib sAo8YyNwSZAquxAcuGfiXJY4 d0PhKk93J61fSWlrPVOdWMIxXF GkOVRyrYlvkc6keW5zBt6+PGNv kMD8rNF9oW8rUqEyBeM3SYij K238BzVjkBPlHlmso0nbw3ptsC b3WmNjSLIfmiZioLuzSSJ5a8Bk Zx48F7EhmOfbr0WrOud5kq92 qMGbi1E8qMB6G7DjOZWogrdnrQ NxgLwrGE5kAMXfrjmvHTBdvJ0a WTNfV3i2JcDuIlA8OXdcU1Id bfU8GIAjoETvUOAgaGNHtV3qrw vjr5zpmmhnZdCeHJSiNAi8WAi2 DRZpyIapBvShYXX9OhT8SPU6 wXCcxJ4feWbwvmqetU3cEwr+UG j5j9isvYRjIH8igCC8BQ08ZH04 rHCgj0M2aBS2H9HeEWTnmzcp gtqwzNU8IMDbBCWdxD89Wg5qzU asGd6eFTSeSPN1TSGnjUQpA1Lm tW5bVqXkEVJbTVPbA4RduGTk ZRcwL090FSsbBeG3KGCtmpPlG9 OjPVYwaQsvFsU3k7P7Uw2DPI98 WC80QB71bFKhj2R8dLI1G6Av ILUblgqdygfmvEV0ZOSyXRSocE 47Ex2ivMooTn1qWDXfGTM0VVHb gSOeI2DntJ0gSkWfVHThWIEa Q7TbpLVuMKdzX586ILycOzG8SW OjovCfV8OpTRPnqDhrKyR6f4C8 Yn2UKr87PT24HN57tHBfs5S4 aJX2E0YfPKTgrlcthlgamES9PE WeVEYqeQ83Hw9dmUtmFo9qJABt EWK6VOTgcMUtF7XbyI2qPbNk CTZtAWSvU7HwnFWrLKfpK730GU beMpE8VLCdksHvZ6TqSWNotEql SgR3f2X4Fh7PDTewvbt3Y0Gj PjwvdHI+CV59WMFsFZ73lFVleS Zec2fglJc8XnQfLLOrZPC5gBoa QKbbp0WkQHGzH89qnWLaj9B2 IGN (more content not included)... [facility] Coding Summary HTMLBase 64 PozwtouiQLz2lOc+PGhlYWQ+PE 1DZNRxX66biLAcnQ0TO3bYME1L MNGMKAKZOX8QHW2ysZE3GAqdF2 VybiAv YgaxxNEiAB91PHg0XVO4kOadWI ndhK8dlYXpX3y3KoMrNC14oN03 UJnnBQIiEsW3UuKwveduzJFn U2nxFwEzqZPiHwn+PHRhYmxlIH mzMWJbLEjxZTKdZfAwsUcaEC1p Kl2pPZRcRILqpRiikVByMvUq s9kgMXZbFMamYJ6wjGfbV3OlgP K2LTWsa9i3Nx01yZF+PHRkIHN0 sVinCBryp098CqXdq2dwDDC3 dOQjSXjrDZO2U46uz7M7EEPyQH VcDXX7wED0qL1kvOfzxgerE3Yv jMFbRmC2AJS5vUYptL1vcThg ggkloI6yOqu+N71RJZ0AZKWREJ 8GIiq7D9AgUwdowEH+KM70ABEv AS64pEItjTQhb5vhkSx7LlPv ALTfYXT3mIsdVVxng1IvCDQcF2 7cwRCag4H2AUCnhYiikVTaHuFu rYH6aV8fMBwtjbrhn8dxlegv Xximo5wywk51bI26V55vZQcmNP UnDWX8JXToAXUuvUkivy6poP2p Ii8+ZGtri2omt7rgnBy7YiKd XEQmpnEheVnaEMU3w6YdLj93W0 DazJgau3DxAjx5do83kACdz7H4 lQB6INboJIYghZ1uDRlkTvD3 DKQlDdZgrX49gINfCYpzMi7wiK dlvVzcVA1iXLEhhpexTCUzaQ2i AHWffHUocJslOL0pXXGezjqz m072RiXnHMC9HXTjeONlP3GuuM 9lMrNmBXPoFTTdD5ZloBMrPGoe T264ZGpfAwS7FGPckpLuS2Sr SVTrxVbzImV3p4O0Nn6Nm4Iuxo lhHZY0DJzhPAV2HgTvHzLqCbN3 R4GtIug1JSRwfOunJZ0kA2Ia FLYechppoaqdtCS0TEHtFPTpqM 46pXIzRIetPm1ls7T7r401OMZj BMPoyF31Mh0pwFfwWNMxpZCF bL2urpirm0nsocmtZbTcIIXeNF g7IFi6MYUokJrjVxQcYJW4XkF9 MFZ7sWPmzC9qjOizqztxsU2w Oyc+F47ecX0sNQQ2JRY3qmgjGJ MgitLpLZ97AS13F9DzEtbvkLFb bGU+QKLyacEawPjnJU2aZtPe i1ncp1ZfGQimG2GcCYVmVYsjGl q4IUXaSEZ4xCZ3dU0eAOFePNcl h9M9lRG0J5UzbtYgqg1kw6ra JTIvBPohF87btNSjg8J1BWLqsC P9LKUgbWcaPeVtjX56Ecp+PGNv wZmbk5AmWsqfe3nxj4mavGx5 UoYeICZsfaMrbVszOPL6b9HuHj 64R58fGGajFDEfVVIvIZDnNDXw aGlzkh1urU0vWx1+PGNvbCB3 cAK8uL1eTNAjOuR3EJnyV609Wo SgdTGwQvahx2omw4gglHi6RzWx KKBmavSvrDsbZVA4r4CoBi08 O34oVMduWBRvZEWxENLmOKOqcS qncn1lqT4iSo5+GX3gs7qzzv34 wQ75hHO+JPKtQLM1wEuxSZeb ZTHhsT6hDSuqBkS7NDWpHmWwkT 27oRKeZSnoLv7vaQiqqVakAF6p ZNZvzeyww728BrSbx2joXGUz wFOrHPpwHXP5W48jv0D3CAQoEX ZbCMC3oWH8fF3qgMimfgzrjBMg lMmhzcJsvFydSCozFSsoJ109 IHRvcDsnPlBhdGllbnQgTmFtZT s3U0EfYzz0OVFluBwvLU8vqCEs KAlqZq2guSsmiUcsIT4tJZBn aqajf816QrUyi3gaIQOwlZOvKM ljKTW7U21pr4R3SAEeQTEiFBK6 bEW4mL8rjNxbvczgmJDwhNkk yaZsiKpkRPkyTLonP480MKGzaP rrMxBtxcVgDMDicPX5AD15BQ64 jYCkc2D4uWK8A5CqCFYuphzn prsoxXW0ZUPyQWLphS57Cp1usL fzQz9zVZGkOER2KIJydQLeG2Tr qO4mBaMhTEJrHNVqC1WkjJHm CGyyF704TYozSwW7LGKuhyStO1 VmJXShzKurCxR8l1S7Yr4VM6N8 OG58TR14wZUvv4P1cEE7C4Rw NKSskoqrvydxvEP7HJWvHOOowR 42Tm9dnBftZu0oRNEpSBF4KYLu xNHnV2LbrW0dOvRwWKOgSZIb P6AriSEsJEojZ529ZZudFwD2PE VxbkMcQ2QdOXQxmJnoRvH5m4E8 Aa4SMBg6CY59TH29pQEgv2H8 qLD0C1HbRWKlwhbywdofeQA1AS GxYLHmpF87Re2inAmrJj6bWNZw ANE7NBLktFUsC7MvdT5xVhJx IEShMBMqQ5AlwVMaUDenZ400DP iaJtX7CRPdzrFfT4OvJGPhhDtx RaZ6r3D3Xw3XIIZtDH66HHT7 jIL1IA10GR33F7AcNobpyBMwvW U+PHRhYmxlIHdpZHRoPScxMDAl OcHnlGusDP4pMc5yDRMaUESn tOwziUXoKrQhi2dyAFWiMHcyFJ 6soEnwW9VfnWK9ROAbk5u4Ss57 T56yM7MoaSD+OMEssET3qQV4 kB9cTrTiUuY6AWmuJ698FrWanF EiUdsxu6huc5nkyAs5GeV8KTMo loIruLjfFUJ7f2VsJt91Q78s IHdpZHRoPSIxNSUiIHZhbGlnbj 8roR9pFn9+VVGlhOE5yDI9gK7b TkQkRyN2KYjoW346TrBkgLJb Iipql8qps8ddiLb3TbLiFUXomt FdxLiwJYN7w5LxBe64I9ZwnXhn k6GnXoy1qj95pPIbw7M1zZM3 M2FgPTAmcnxysIJqtAehNH5kBN BrqsheTVPvbG9eZQCsW8b1WeIu TmQ3UFkoB6PayqU6SDNmsQNu AZfrCIN1R26be2L9MYXfABWfEV C4fEB5fH5qpJyhrjvgoHDsxLyv rrWytDlxRHvfKFenL434TRTt wGfxYPDyjF2mKQZgvMZtnQmsBA 4wNTBpbjsnPlNURUlOLCBWSVJH JS0FRAISZET1N6KxIma3TJRs fBtgFN4ztKRoONusJl3gaHzsmA ksJI0nDBFizzibXTWxnH8xZNBm rYJstNmxLS5bTRRgsqdza771 MfSpSWU4OEYowPEdE7EknQ1rLb LwMXGiADPbA6BzmKWzJPkoI407 GRprBxT3KLNgseJmG1CpAMOy gUljDvB2p1A9Mv6lEZ8bFD5nEV ilRQ87LO11qWLxn0R6dIK5T0Ws YMKjovsgeghemWG0WWNjECFi zM78aAAtTRqnFj8io8L5l888BR EjMEWxzC10Mp6ctCydRSKanPSG gL2juxyuj6xlrutvWgGtKELo LAe5HZa1NRGkoBhfZgLzIUU7Nn N9DRM6dYRouY9dfNrpydfobX0s Oyc+ArhuAJPyrhK4S0AvWaq9 NOXpdQtwDV5vwJYkIXmpAn6jcW cjwGemTF0jZZKxjbcjKKIygN8d JUNjbMKyvQqsMT2bQEKsetsy f570JsXkFEL1VKYlgZLgB7XpiM 1sWnMmDEExGFJyZ4GzgRNmEAyf X262XRrrPvJ4BTXxeaCjL0Mq TSHtkVplIdG2b1R1Yb8TMD1BJK I7E1RuWje7YHMmrZmjAO2hwTYy KUvlKs1iyIslpRokPD0vVAYg hrguYADckC2oSXFdmNNznPegNS 5oMGHpgyqpb766HnZgWVE7FKQj cTAwA6SsvS6pFjJrUNKlIJHf F3OcvJIuZRsbN301LDvoIpJ1EB ZzzpJlX9VjUFVmiFacQdE1e0U2 Gm8JlHNsE3VkE6g4U5OuEkoq dHI+IN86BSDiJR86xBLtwYHzd4 dehEl1VyYkTVGmMME2rAbqCWwq v5UaDRNvU34wcZWvm2Z7LBZr sEymcIAqUgLyeVQ1bB7qQFywgu tfz9mftmlqDxske0zfxh47tI96 U68cJYgvKBSnDRCoBDAhDFWl tJkexe3ktM6qSa8+NWCxdTI8tR U5dB4kPaRcNsV0XJleA181CoKf hHIpMaorj8szx3civMr5ZaYo YESdyrIspIzuSBI3e8ByWd99F6 9sIHdpZHRoPSIyMCUiIHZhbGln uh1ayJ0eFq1+XQ5wd1jtsc50 fX53rDN+IERyRXO3eQufOAhjLC QtiE8bEUgvMfQ5OEGfPuVliQ33 fLUkDYywHl9qdWvnqViuNW1x JVNnyuwon634SxAit0hsXZRchE BcFLkgPFL3I82bq0L0VJUhLDVq AIG0yIY3uG5jiZzbmkqteATn cYqpoxSubFlfMQqzNHpxP342QP EcgOwuMrOuyZHaO9andrHNPI1g OjwvdGQ+BOKtYMF0tFeyZVuv XHAcoO3lPLTdY9r6WsToNeF3PL obA5JwglX6KPDbiVJrDCCwqCEF hD2bnlzfw3wowwncTiHfDTUl LLq0YOu0ENXtqMufFyRkGYS7Nx W5MJT7qYBaeM2grMxmcpjaiI0c Oyc+RklOOjwvdGQ+PHRkIHN0 kVpqTNrnHVFlqA1oHHHwQ8c1Fq GrIxT8MTspI3FpaeY5NJCteWJk VYOlySIQbB6sehlrv3pqsomm PkGqBYYoQNy9ZWh8SXJlvWwwJj PgRAO4YbP3QER8wNSkqB8viBno zfcpyH7hNia+TVJOOjwvdGQ+ TTPhQAS7jBwxHGkyOZCxzG6qDS WeM3a1YdFmVuC3BWsaQ0NowrX9 IFGbtLIcDHYxqQXWvK6ysjnw q9xaeopkEeJuHQCvGUm7JEc9YT SotGakSgCzBXW4YgM5MLB1eUGo nU8rfAjwpblpmA0tUhu+UGF5 LPD7MM18KJ50X9CuIwqrzFRchV U+PHRhYmxlIHdpZHRoPScxMDAl LbZonHrkHT8eZo6xQOGlLVQd bGx (more content not included)... Normal [facility] CHLAMYDIA/GONOCOCCUS RAINER ( AB/URINE/PAPon 02-09-2022 Chlamydia trachomatis, RAINER Negative Normal Negative [facility] Comment on above: Performed By: #### R PRQ #### [facility] [address] [place] [address] Dr. Juan Antonio Ibarra Neisseria gonorrhoeae, RAINER Negative Normal Negative [facility] Comment on above: Performed By: #### R PRQ #### [facility] [address] [address] [address] Juan Antonio Ibarra AFP MATERNAL FOR SPINA BIFID Aon 02-08-2022 AFP MoM 1.41 Normal [facility] Comment on above: Performed By: #### A FPMAT #### [facility] [address] [address] [address] Juan Antonio Ibarra AFP Value 66.8 ng/mL Normal [facility] Comment on above: Performed By: #### A FPMAT #### [facility] [address] [address] [address] Juan Antonio Ibarra AFP, Serum for Spina Bifida Report Normal [facility] Comment on above: Performed By: #### A FPMAT #### [facility] [address] [address] [address] Juan Antonio Ibarra Comment Comment Normal [facility] Comment on above: Result Comment: Melchor Chaudhary, Ph.D., [facility] Director . References: Available Upon Request. . Multiples Of Median Cutoffs For AFP Elevations Briscoe 2.5 Black 2.8 IDD 2.0 Twins 4.5 Abbreviation Definitions IDD - Insulin Dep Diabetes OSBR - Open Spina Bifida Risk . For further inquiries contact [facility] at [phone]. . This test was developed and its performance characteristics determined by [employer]. It has not been cleared or approved by the Food and Drug Administration. Performed By: #### A FPMAT #### [facility] [address] [address] [address] Juan Antonio Ren Age Collection Date 18.3 weeks Normal [facility] Comment on above: Performed By: #### A FPMAT #### [facility] [address] [address] [address] Juan Antonio Ibarra Gestat, Age Based on LMP [facility] Comment on above: Result Comment: Reca lculations are not recommended when gestational dating by LMP and ultrasound are within 10 days. Performed By: #### A FPMAT #### [facility] [address] [address] [address] Juan Antonio Ibarra Insulin Dep Diabetes No Normal [facility] Comment on above: Performed By: #### A FPMAT #### [facility] [address] [place] [address] Dr. Juan Antonio Ibarra Interpretation Comment Normal [facility] Comment on above: Result Comment: Inte rpretation: [...] Customer Services to discuss available options. The [employer] recommends amniocentesis be offered to women age 35 and older. Performed By: #### A FPMAT #### [facility] [address] [place] [address] Dr. Juan Antonio Ibarra [age] Normal [facility] Comment on above: Performed By: #### A FPMAT #### [facility] [address] [place] [address] Dr. Juan Antonio Ibarra Multiple Gestation No Normal [facility] Comment on above: Performed By: #### A FPMAT #### [facility] [address] [place] [address] Dr. Juan Antonio Ibarra OSBR Risk 1 [place] [address] [facility] Comment on above: Performed By: #### A FPMAT #### [facility] [address] [place] [address] Dr. Juan Antonio Ibarra PDF . Normal [facility] Comment on above: Performed By: #### A FPMAT #### [facility] [address] [place] [address] Dr. Juan Antonio Ibarra Race Normal [facility] Comment on above: Performed By: #### A FPMAT #### [facility] [address] [place] [address] Dr. Juan Antonio Ibarra Test Results: Negative [facility] Comment on above: Performed By: #### A FPMAT #### [facility] [address] [address] [address] Juan Antonio Ibarra VAGINITIS/VAGINOSIS DNA PROB Abdirashid 02-08-2022 Jeremy species Negative Normal Negative [facility] Comment on above: Performed By: #### A 1C #### [facility] [address] [address] [address] Juan Antonio Ibarra Gardnerella vaginalis Negative Normal Negative [facility] Comment on above: Performed By: #### A 1C #### [facility] [address] [address] [address] Juan Antonio Ibarra Trichomonas vaginalis Negative Normal Negative [facility] Comment on above: Performed By: #### A 1C #### [facility] [address] [address] [address] Juan Antonio Ibarra ABO and Rh group post transf usion reaction Nom (Bld)Ordered By: Eleazar Hess on 02-06-2022 Microscopic observation Gram stain Nom (Unsp spec) [facility] ED Clinical Summaryon 2021 ED Clinical Summary [facility] Emergency Department [address] [place] [address] ED Clinical Summary PERSON INFORMATION Name: ZULEIKA WYATT Age: 31 Years Sex: FEMALE : 1990 MRN: Acct#: Visit Reason: Rash; Medical problem - minor; POSS BODY INFECTION Arrival: 01/29/2022 20:27:46 Discharge: 01/29/2022 21:17:00 LOS: 000 00:50 Check In: 01/29/2022 20:27:46 Checkout:01/29/2022 21:17:00 Address: [address] [place] [address] [address] [facility] [address] PCP: Andie Stoddard PROVIDER INFORMATION Provider Role [...] follow-up with their family doctor or their REGIONAL SALES ENGINEER doctor. To this they agreed.. Health [...] Current Fr (more content not included)... Normal [facility] ED Note - Physicianon 2021 ED Note [...] follow-up with their family doctor or their REGIONAL SALES ENGINEER doctor. To this they agreed.. Health [...] Once. Impression and Plan Diagnosis Sebaceous cyst (LLQ90-OC L72.3, Discharge, Medical) Plan Condition: Unchanged. Disposition: Discharged: time 01/29/2022 20:59:00. Prescriptions: Launch prescripti (more content not included)... Normal [facility] ED Patient Summaryon 022 ED Patient Summary [facility] - Emergency Department [address] [place] [address] PATIENT DISCHARGE INSTRUCTIONS Patient Information Name: ZULEIKA WYATT Age: 31 Years Date of : 1990 Reason For Visit: Rash; Medical problem - minor; POSS BODY INFECTION Arrival Time: 01/29/2022 20:27:46 Primary Care Physician: Andie Stoddard Attending Physician: Johnson Wright DO Comment: Visit Diagnosis: Diagnoses This Visit Medical problem - minor ([id number]) Rash ([id number]) Sebaceous cyst (L72.3) The Pharmacy at [facility] is open Saturday through Saturday from [...] alcohol and/or drug addiction problems; contact the [facility] 07/01 Crisis Hotline -Text [id number] zj [id number]. If you received any narcotics, sedation, or [...] documents With: Address: When: Andie Wyatt [address] [place] [address] Business (1) Within 3 to [...] to return anytime. Call Dr Wright, ext [phone], if any question patric WRIGHT< ER PHYSICIAN< Heike Jones [facility] Medication Information: The exam and treatment you received today in the [facility] Emergency Department were for an urgent problem and are not intended as complete care. It is important for you to follow up with a doctor, nurse practitioner, or physician?s senior care assistant for ongoing care. If your [...] so we can reach you if necessary. [facility] Emergency Department has provided you with a complete list of medications post discharge. Please inform your music worker/provider of your visit and for further instruction [...] Epidermoid Cyst (more content not included)... Normal [facility] TYPE AND SCREENon 12-30-2021 TYPE AND SCREEN Antibody Screen NEGA TIVE Blood Bank Notes performed by CV on 12/26/2021 ABO Rh Typing A Rh Positive Blood Bank Notes performed by CV on 12/26/2021 Normal [facility] Comment on above: Performed By: #### R UBIGG #### [facility] [address] [address] [address] Juan Antonio Ibarra HEP B SURFACE ANTIGEN SCREEN on 12-28-2021 HBsAg Screen Negative Normal Negative [facility] Comment on above: Performed By: #### H BSANS #### [facility] [address] [address] [address] Juan Antonio Ibarra HEPATITIS C VIRUS AB W/ REFL EX QUANTon 12-28-2021 HCV AB 0.2 s/co ratio Normal 0.0-0.9 [facility] Comment on above: Performed By: #### A 1C #### [facility] [address] [address] [address] Juan Antonio Ibarra Interpretation: Comment Normal [facility] Comment on above: Result Comment: Nega tive Not infected with HCV, unless recent infection is suspected or other evidence exists to indicate HCV infection. Performed By: #### A 1C #### [facility] [address] [place] [address] Dr. Juan Antonio Ibarra HIV 1 AND 2 WITH REFLEXon HIV Screen 4th Generation wRfx Non-Reactive Normal Non Reactive [facility] Comment on above: Result Comment: HIV Negative HIV-1/HIV-2 antibodies and HIV-1 p24 antigen were NOT detected. There is no laboratory evidence of HIV infection. Performed By: #### R UBIGG #### [facility] [address] [place] [address] Dr. Juan Antonio Ibarra RPR QUANTon 12-28-2021 Rapid Plasma Reagin, Quant Non-Reactive Normal NonRea<1:1 [facility] Comment on above: Result Comment: Plea se Note: This test does not meet current guidelines for screening and diagnosis of syphilis. This test is intended for following treatment response in patients being treated for syphilis infection. To screen for syphilis infection, a reflex cascade that includes both RPR and a treponema-specific assay should be utilized, such as Treponema pallidum (Syphilis) Screening [place] (605145) or Rapid Plasma Reagin (RPR) Test With Reflex to Quantitative RPR and Confirmatory Treponema pallidum Antibodies ([id number]). Performed By: #### R PRQ #### [facility] [address] [place] [address] Dr. Juan Antonio Ibarra RUBELLA AB IGGon 12-28-2021 Rubella Antibodies, IgG 3.48 index Normal Immune >0.99 [facility] Comment on above: Result Comment: Non- immune <0.90 Equivocal 0.90 - 0.99 Immune >0.99 Performed By: #### R UBIGG #### [facility] [address] [place] [address] Dr. Juan Antonio Ibarra CBC AUTO DIFFon 12-26-2021 BASO # 0.0 103/ul Normal 0.0-0.1 [facility] Comment on above: Performed By: #### A 1C #### [facility] [address] [place] [address] Dr. Juan Antonio Ibarra Basophils/100 WBC (Bld) 0.3 % Normal 0.2-2.0 [facility] Comment on above: Performed By: #### A 1C #### [facility] [address] [place] [address] Dr. Juan Antonio Ibarra EO # 0.0 103/ul Normal 0.0-0.7 [facility] Comment on above: Performed By: #### A 1C #### [facility] [address] [place] [address] Dr. Juan Antonio Ibarra Eosinophils/100 WBC (Bld) 0.4 % Critically low 0.9-7.0 [facility] Comment on above: Performed By: #### A 1C #### [facility] [address] [place] [address] Dr. Juan Antonio Ibarra Erythrocyte distribution width (RBC) [Ratio] 13.5 % Normal 11.0-15.0 [facility] Comment on above: Performed By: #### A 1C #### [facility] [address] [place] [address] Dr. Juan Antonio Ibarra Hematocrit (Bld) [Volume fraction] 38.9 % Normal 36.0-48.0 [facility] Comment on above: Performed By: #### A 1C #### [facility] [address] [place] [address] Dr. Juan Antonio Ibarra Hemoglobin (Bld) [Mass/Vol] 12.9 g/dL Normal 12.0-16.0 [facility] Comment on above: Performed By: #### A 1C #### [facility] [address] [place] [address] Dr. Juan Antonio Ibarra IG # 0.03 10e3/ul Normal 0.00-0.03 [facility] Comment on above: Performed By: #### A 1C #### [facility] [address] [place] [address] Dr. Juan Antonio Ibarra IG % 0.3 % Normal 0.0-0.5 [facility] Comment on above: Performed By: #### A 1C #### [facility] [address] [place] [address] Dr. Juan Antonio Ibarra LYMPH # 1.4 103/ul Normal 1.2-3.8 [facility] Comment on above: Performed By: #### A 1C #### [facility] [address] [place] [address] Dr. Juan Antonio Ibarra Lymphocytes/100 WBC (Bld) 14.5 % Critically low 20.5-60.0 [facility] Comment on above: Performed By: #### A 1C #### [facility] [address] [place] [address] Dr. Juan Antonio Ibarra MANUAL DIFF REQ NO Normal [facility] Comment on above: Performed By: #### A 1C #### [facility] [address] [place] [address] Dr. Juan Antonio Ibarra MCH (RBC) [Entitic mass] 29.6 pg Normal 26.7-34.0 [facility] Comment on above: Performed By: #### A 1C #### [facility] [address] [place] [address] Dr. Juan Antonio Ibarra MCHC (RBC) [Mass/Vol] 33.2 g/dL Normal 29.9-35.2 [facility] Comment on above: Performed By: #### A 1C #### [facility] [address] [place] [address] Dr. Juan Antonio Ibarra MCV (RBC) [Entitic vol] 89.2 fL Normal 81.0-99.0 [facility] [facility] Comment on above: Performed By: #### A 1C #### [facility] [address] [place] [address] Dr. Juan Antonio Ibarra MONO # 0.5 103/ul Normal 0.3-0.8 [facility] Comment on above: Performed By: #### A 1C #### [facility] [address] [place] [address] Dr. Juan Antonio Ibarra Monocytes/100 WBC (Bld) 4.6 % Normal 1.7-12.0 [facility] Comment on above: Performed By: #### A 1C #### [facility] [address] [place] [address] Dr. Juan Antonio Ibarra NEUT # 7.7 103/ul Critically high 1.4-6.5 [facility] Comment on above: Performed By: #### A 1C #### [facility] [address] [place] [address] Dr. Juan Antonio Ibarra Neutrophils/100 WBC (Bld) 79.9 % Critically high 43.0-75.0 [facility] Comment on above: Performed By: #### A 1C #### [facility] [address] [address] [address] Juan Antonio Ibarra Platelet mean volume (Bld) [Entitic vol] 10.0 fL Normal 9.5-13.5 [facility] Comment on above: Performed By: #### A 1C #### [facility] [address] [place] [address] Dr. Juan Antonio Ibarra PLT 194 103/ul Normal 150-450 [facility] Comment on above: Performed By: #### A 1C #### [facility] [address] [place] [address] Dr. Juan Antonio Ibarra RBC 4.36 106/ul Normal 4.20-5.40 [facility] Comment on above: Performed By: #### A 1C #### [facility] [address] [place] [address] Dr. Jaun Antonio Ibarra WBC 9.7 103/ul Normal 4.0-11.0 [facility] Comment on above: Performed By: #### A 1C #### [facility] [address] [place] [address] Dr. Juan Antonio Ibarra CULTURE URINEon 12-26-2021 CULTURE URINE Culture Observations : LIGHT GROWTH OF MIXED GENITAL ALONSO. NO POTENTIAL PATHOGENS SEEN. Normal [facility] Comment on above: Performed By: #### R UBIGG #### [facility] [address] [place] [address] Dr. Juan Antonio Ibarra GLYCOHEMOGLOBIN A1Con 2021 ADA RECOMMENDATION SEE BELOW Normal [facility] Comment on above: Result Comment: ADA RECOMMENDED LIMIT 4.0 - 6.0 ADA THERAPEUTIC TARGET < 7.0 ACTION SUGGESTED > 7.0 Performed By: #### A 1C #### [facility] [address] [place] [address] Dr. Juan Antonio Ibarra Glucose [Mass/Vol] 114 mg/dL Normal [facility] Comment on above: Performed By: #### A 1C #### [facility] [address] [place] [address] Dr. Juan Antonio Ibarra HbA1c (Bld) [Mass fraction] 5.6 % Normal 4.5-6.2 [facility] Comment on above: Performed By: #### A 1C #### [facility] [address] [place] [address] Dr. Juan Antonio Ibarra US PREG TVon [...] FELE[employer]IA GOLDMAN Date: 2021-12-07 16:59 Normal [facility] Coding Summaryon 11-21-2021 Coding Summary HTMLBase 64 QnrxtjqmKDw9uVo+PGhlYWQ+PE 9RKVKvL10tgZHxbV4XS1dUJU8R DIJNWNFMOP0CJU3jbUO6QJybS5 VybiAv CrscxYTwVF66CHp0KCS3ySvxNG irfR0jpHRnD1n4NlTsQN16nU84 VUzxNFSwUeS6JdIxfyvdfEUx Z1hyHuLkmLVbNkq+PHRhYmxlIH jfBXSrGRvePTVwMuTkwEwdNC4i Fp4qPZPoTJYmwPdjzVXiRqEr l0ypOMBhGVenAN7yhQgjN5CqwA R9PGMye0n5Qj71rOD+PHRkIHN0 vCsvURadd206FiCes4adXLH4 lDIrMWytULR4T29tv1U2RVEiHF VgARP2cSF0gN5goQjgwmusD0Va iPMoLtP5QKV9mKUnnE0tkMom rzwzoP0nAjp+Q25PFZ3DDUDUXU 6NSnq9Z4KlKxtucWP+HS46ZHWo RW63wPWuvMPwr2phuJo0JgXw EHZrKNN8yHbaQBomz0ReTPSfG0 3lvSGzj1W8KWHcoBzrfILwZeNp rCG1pN2wEGfmoajaj3ebdhdr Fixlh8lkvh28rI09V21aBInaDI HgIKE3JCHfWCRpkXbwdp8qlY1f Ii8+VTxvf6gcl0wecMb2SnCp HLPopxSnvLkyQKZ1e3JtJa97X6 DnqAcuw5YfCvt2nw80aDKtg7M3 uWD1XCtrGCUjxS6tFRbkVuL5 EQTcLfNsqL84cBExKUvuCl7ywS lnfRwxRS1aOXGwpckeWYYmeR0u MZKczBNrvPliTM9oMPWgaqgy n956MuHcGHQ4IGZaaTLaE0SvgT 9rVxUrGJDgDGZxZ7GhoJDePVgx E789WFypLbI7YIFgqlGhQ7Gu KAZuuMvyAkD1u0G6Ab9Ar5Xwkm ybPGM7OFecPLF0SjE2MiRlUbC9 C8ArHgw7PTOuqSibBG5vR2Iy JMMywivcukplyWS3NZIkGVLpfL 42dVFkXRbnEt4pp9H7d204HKXv XEXsvW02Lf0klCchEYBjrEUF fC6siiuca3hwfowtEpSmUQEgVT c9JYj7MVNwpZxfAyLiJSJ2BsF7 VUO9wNWqvH4xjIrjtlzriH2j Oyc+W16aqJ6kLIB5XRC8noxhOX YhxjVrAW36AM65V3AeXpwopRIp bGU+DNEmrlTzjFukAC9cQhYg j0xpz1SaWUjtC0AxZZUwZDtcLy v3ZWKkHKO7qDW9uL4cNSTjGKhp q5S4cRP0P7LtiaMped5fa1ha JMVgYDypP99seAZbg3L4IEMluC S5ELPmnLjcJzEneF81Nrb+PGNv xXdzw5CpCtdcu5kmj9gncKw9 EyKqBVKvgwRzqVwyUQC7y1GyLp 59U26yOXacPVIrPVJsWXUzIQLu lJatap6tlG5zMw2+PGNvbCB3 mWA6xZ2pSLDyJfA4EBhkI578Ju IgeJEnEyipj8djk4exoLi4HfTt XWUdmyAzuJxqBCX1m9KoRj90 Y40cXRfiWYDeUATtCMJrIZHufU oala7tdB8xIe6+TF4we1hzzk91 uJ42eLZ+JZMoPEO4aTdnDRqm ZZBrqX5iWPrrNoJ3BYZbNmScuC 47nLYzSWkmQz4moMtacNosJM4s SEYflhuih443UsLav8frMHJl oWXiVXxoGBK0Y99vy4E5ELKlJC XuISZ6wZF0qJ3nkKnkaknmdLSn nHtbggUqoVlcYSsnMQkbD740 IHRvcDsnPlBhdGllbnQgTmFtZT f7P9WkXwb0BQPexVdjSR9mwTEz YDtmMf2emSljjBwnXZ7iAXXr rsxso679DhSqt9yqDEOhfDYnBM boQLF1Y23vi1A7EIAdSRLeNBR1 nUE7pZ1sdOkzrqjlcKQbyJin htHwxUhbLAwcPXooN013IPMtrP qkJlDlmfMkXZKvjAP9NW53HI27 zPZtr4B8lFN9N8XqYYIiiuhb eaheyEA9GEGiTZVknV82Mr3adZ ypAf2aRRVlDVW9DMIxfXYuF8Mu vV9nTeVdYMCdEFYlL9OovTFf HBgxY633KDejRbU5HYUbpmRtV8 XgLQCpkDagHfD0z7K3El8IV3U4 PM25HT63lJGpv1S1hJD4M7On NNUrtnclovjftWN0SCVlSRMnnY 69Di0nkEzmKn2jZTNhBQD8IDUr hDZdD5CwuY1hOzVyMCIqWQZg O8YwvHReLPwfE262URhfEaG8OZ GqdeXxD5GeHOBvdOacKnB1x8I1 Sm0ZGXm0GJ14MI62rLEon6K0 cNS3M8EmPBTcctmfhydodOQ6IX EbUAKgkJ88Xu1ljVjcMt9hSVNm LAH6BTLjaUDnN0HijC6tAeIv MDVrMUXvG3FklVQkTCinH939AD bvWpF4XIIfqnHuW5SoFXJibSjv DhI9a3M3Dv3ZGCYjBL98TYX9 iOW4RP66FC78L1XkFtjizMHbtC U+PHRhYmxlIHdpZHRoPScxMDAl YuKnqKieSF7hFc0lEZZcWWZl fUohbJOtEdEnn6xjSZEeUGpyPJ 1qfSzxR5WuvUZ4ZPIyv9e7Qo78 P47pP3InpWK+EWYhzEP2cPI0 oK8eDtPtGtF2IDvaH772JzYlhP EiUfxof7ftv7ptqJd4VuT8HJIz deVddUffMCI3a1ZrUq64T44x IHdpZHRoPSIxNSUiIHZhbGlnbj 2pvF4oEo0+GLRjrCO6lOX7uO9x QiMcAgB1SMmtS146HsPuhKWe Tekiz7yyu2blzFo5TlGiNDFgxm UmiIxsIMO6o8IoIh70K8LnzOce m5ChWod8ns08dJCeg0X2pHY9 E7RrPDJzjbzotMPcgJttKT0fLE UehgvsPGCsqQ8zWGSdO3x9KdNv GxZ0TYzpE8NnlnY2TGBqzUWe DZmwDQL5C52ss7F7LGRwHYZiVC G1sDV2pX2fqXozgpmgtGHfyQck csPzaQemXPjgEZpxC293DXEn bPmaHMGmzV9tBKLeyOCloWgcFF 4wNTBpbjsnPlNURUlOLCBWSVJH EA6TQAZISZJ1D6EoWcv2JFMe jFmjMQ2sfKAdRCszOt7xpVjdmO lyDA0oGVVipajzBYJalG3fZEEf oAOnjCajLV4rVLLyljwwi164 UnQnPFF7JYLmzDEoZ5ZyiD5xAq DzXSXpFJNyP5LocPMgPMvaZ887 OPjbTeV6GIPpseSyS2VkGUNj bZsmOwP5o8A0Ny4nMK2nHI4tNN pwZN49RI04dXWxy5S2kUF2D2Np CSNvdpffylhuhXW0VSTnWGSz eH16xCGnJPvwBa8cr3W7v322MQ PgDKXwkE76Bw4rrXdbFUGhsMAE hX1rysgwb0jnpvirKwLrCAIm VNd3WBc0OHVbsBvbXqDnSKX2Fz F8GFO4jEPosX6ryMdzvmpnmV6u Oyc+AuplAMTdyaP8Y6CbQia2 MYNjiEwdJS1rmAQmWKrvEa6hcQ ociYlrSG7yHNFovxbdEHUobO8y SZFamMHynCcyDN4qMIUkdcut q867JjSbQMT6RURsoDGrG6UdiC 8xVuLhSOGkOYAbZ4MolRXnYOge X836UGyrIeL6PBJwakWwV2Bo AHQgjYhdJdK6t2R9Zs1CAH6TPA I5M6FhUqq0OVNwpHrrJS6clFFf FOjoFl9ybCyqzIxfVU7iJBOm jpfzTPQfdW7bCSHwaQKyjGkwOB 6nTYFlfvgsj324MaSeNLX0OFWq vDMsL4IjiC2tDyGgHYWjCFXw Y2FmtDIbXJgrS200BIueCzG7WA OtpiJxC8XsDOPurFrrRiO6j2Z0 Qt2HBUddqGW+XN81ga49R5Rj YzklXej9MPReJSO3mOB1cQ9fKL SmUMghv9U7nCI7K2AvvtKoqk9s v7vlUXYgKOczY96ugPMxl5C9 TJDieVX6PZDjvBcvNzCceA60Gb c+WYLwtIiru8EbHrkde8ofq1ha sHu9PkNzPBJbisLmpIxiXXG4 p6IzXn78X87cZOtmOAHeDUXtQW PfJSUrgHiqjk2iaA9lCh4+PGNv rPK2fHP2iU3pDzLeWyS3SBjd O186UyElxRYiWxcch3eqc3yqjW f7OrWqPRIrqxUweNmsUJA2g6Fq Tu43M5JbsYgvv3PlHfq1hs39 xYLuk5V0dFN8A9GqANIvftcbpM LqgXgrAI6xHGRaykxjUAVixO7k XHCfR9t0KsUfAmU6QBgwY1Wk fkR6QZJoqCRyNUHksSGRkS5fev wzw4xynpbeEkPrATJvGHe9FRc9 UVUlzNzyRlOuSHW3KtI2LCK6 dFPluR1ysSvmneexjR0eCal+UG l8n1swiHHiSD4gpHS2RX58DW19 bWApx8Y0qCJ0V0HwDFJmeiqx zbdouVU6MYSfTNGywK97Hw5efG cjIn0gTOKxITA9BLZxgJLfJ9Av uV3gDlOgVLNkWMEzR1QtsAEy HRzmB538APftShE6BUQufmYpY8 HeRWXtrJqlIfK3m8L7Qz9QMZ34 DS09YX25bRXob3Q0kAP7H0Gs CLMvymchagqpcFO0NMAxWVBthY 80Po5gsErwCl4fRRSbNNY8LRRj jIGaK1LcwW5tHwQcNRWlRMBy J6UmqDEqTPhmF163YNkrZyO7KS GhhlHsI4YlSHHngTuvGlP0m1A1 Hv2DTy73BR71WR48pBNul4N0 uMI4J3AzFMSuclhdhchrkTO5BH NtTMYdrL06Pf7mqIefYs7yOZKt MSC6HXFctBJkC3DhdQ9rYpTl KWEkKKBcA7UefUDfPXenT308HL ipKyS2PTWkbkCpP7RtOFWgvFgx VjN4n4P3Yr6DQNbbxsp6Q9Dc PjwvdHI+RX70FNDfQD75xRUepV Rmp2nwiRz6XqYkCGCjVVO7yYmh XYziz4WmVRYmC76gcEPju2C5 IGN (more content not included)... [facility] Coding Summary HTMLBase 64 MvlrdlyhFCj6sUx+PGhlYWQ+PE 2DZSGvA89jbXLihV9CH0qTKQ8R YGQFGKPILJ1BXH9pxXI4LCnsH6 VybiAv FekuzHYnIC14TMc9LGY5sHotNQ zoaQ3ztSKyH6u5HhEvGJ81hP16 JWrmWPKdLuL6PyVrqskpiXMg U0ndAkBbnXEuLnv+PHRhYmxlIH lrJOGsQDytMBBtAkFjbJwhGO1o Na8qULZkJUDzyHnutPVcIbSv f8ztVKKaZPiaXG9jfJapV1UyzV F2JUBzb6z2Hl89mNW+PHRkIHN0 kZhpTIbfm379HjZjq3okUNM7 xSYcWFefOVD5Y08lg2T0RXXdAR ScQBA1tHV1yM1udNpcubxcB6Vm yMOrXnK4GYM0oPRafB6bxWkc lhlcjS8xYeq+O38TNX5ESCKKPG 8BXro5D8TjClafrOE+GD97ODVc RY36kRPmaUStn1wgmMk3TqOx IIEdWHU5jAnxYMhin2GeFRYaT5 2oaNWxs6B5AWJqsFprpMGyOqRp oDN4tJ0bJGtbfyozl5dipepz Nhwrp4qxdj52uU93O56cTRrtBA FmJIW5JNTjKFLsaJdnyp3giL7n Ii8+HWwlm3mkw9heoIw2EtNl PSPmlaTirWieCLA3q0HtFf76X7 EpsJtwj0TtGtv6gi63sIPlc9K6 tWH0CFilYPTvfZ8mYTrdOfY5 VIAcTpNnqK22ePVdBMsgPa9eqH szlCvzVJ4cYETyupjnGIDimU7c RZMawUAkaVsvZU0dAQZpsgrw x311WhThDVN6VGXvvEUnM9AnbY 2fZeNeEVBkBFPqG1NsbOKyVSyt D970RKdpXhA1IUJsmdNtJ2Xo LAHinPqgYzL2r7E7Or9Xf3Avbd tyGQR1GRbwTHK2TyE9NlTbGpM5 D6XoPuz9PXIfaPuoUC7hZ5Ab BRNjipifsabqqQQ0MIBgMOFjdH 21eKOpYSheNg8rb8U3p917PFVr OTPssA61Wy0riOkfJJZmeGQU iT4auggvt7qzdmqlSwAwVWJuIB l4FNj8RTGlsFstNsOhQVW2TgB7 QHL6xTPmiQ7dlMphsahyqU0y Oyc+X03icJ4yVZH4LRP7rngkGC UmquOmTS92RA43P1IsZdxqoEQs bGU+JIQpssYhpWoeUO5uHfKh i1qvq3WaDRfcW2SpSVVcXQfmSj p1SQWkPQF9uLW1oT3eREKhSCts l3F9iFT0T1DhunIudf4or2bl TFNcLUyuC18rmQOhh2B0TNHeyT G2ZHDqcBnkKwIrfN42Bhn+PGNv zGbok4XiDbebl3mpy2mbmAd0 QxSyITJfcgOgeLfmEYI2d7VfPl 83Q94vSClkVGCxYUCbDOFlGTXa oSsqsr0trY8xSu8+PGNvbCB3 uJV4gD0lVSYqSvC3HJenB051Sg GfoGIkSefcb9rja0zytKs3LyGz BEZwgxLisZfmQIX6z6YdAe05 S96dDSruEMToVCDjTEFuJGYdwE goci2ceU8jSh4+GP4dz5hzfy15 oF97vOX+OMRmZCH8dAwsNDgd UUReoS7tTVqmHgE0HOXxBrNtrL 77qKDyLVgkNa7qhGwhdYgwOC0z PRCksymdh540XiDgt5heUYBl uHIlCVkeEXJ6U17ty6S5JIEoJM FcAGJ2fHE1dM1lgXdoxpwvlCBy yGmpgiTqcYgyINneHRoiQ771 IHRvcDsnPlBhdGllbnQgTmFtZT h4Q3UpAsc4KZYgpImvZJ6biFRw JMffIx0mtRegqNmrNR7lQGNt rhbhx993VfLvh1anRXDbgCJaJG nmOST1H23ig6Y2AHNeABZeNMH1 uQF3xH5guMfmytkubVJaiXbg jaJdwPouINcjWXtxR762WFRbkV tkRyUtitXkSCFzgHB8FJ55TR06 bQZac3H6nYW8G3KmFVEzjweg oqpdzXP9ONRdQHVcgJ77Eq6llE ywAb7xVOFaOCZ2GJYokXEwA6Ze kN1pUhYlLCUoFPIxP1KlmYMa TRdsA225FArfYdL4DNSkypUxD5 WxBTTkvHudPrV1n3L6Gl6AA6G8 AW32SN66cKNcd8I3jGM2V1Bl TPEqltllcudowME5SBDrMOIhbZ 65Vi8jlIcvUl4oPNZbZRM8JBFc qCRlM1GdgO6nZgUsAMZxSIXb N9WiqEYxQAovG930NCmtImE1ST JrgoHzL2XqGVZsmYogLiD9t4T3 Gh8TLVs1BJ20UV21rBUfg4R7 oBB2S8EhPZJawajwedwnfCT8NO TxWTZyzF22Hu9boUnyNu6iVTGb BKA4QMRfvPIlI8GfyV7rJsYy HEFqCWUcN3RcwTShZDfhR879KX zcHuX9GGNbyoRmW1ZvJCBagVss WvS5r1N0Cd7PZFXmAJ35BZF2 kEM6VW47CG75J4AmAbrudOObfG U+PHRhYmxlIHdpZHRoPScxMDAl KvUgqGaiUS0dJm3oCJZtVDMk rZpwqLSePrNpr4vpVDRwXBfrDP 3aaBlyT6IvdQQ4XYWfq6g9Sm01 I06aX6TjlXU+LVNriKV0hSH9 oX6tLgLsBmS0HGydA124TuEnaI RfVdjqo0zse8ilcVz9RiE9RPWf leJfsNcqSQH9m3TeSe96V33a IHdpZHRoPSIxNSUiIHZhbGlnbj 9voM8wMt8+WPWruNP8bKH1pO4j NkLqVdP6XNusB870EcZzwDXq Fpeub9lko1jciSb1FlNtPWJsjz DvxXocNWE0e0BcOj78H6KpaYfz d0WtHlw9oh07lNQec5M8vVN6 R6FmXOEopttmgFIbdZorLU5fDG UkvithVJOcnD7oUGUzU8u1JiQn RjU0BQkoG3ZpyqX5SDMdrODc ETorCGW1Y67vz2J8ILXsQDHtQT J0dTF5mH9cxCjkvrxtnOIrjZkm dqAhfArlVCnyQMfiS217TFPd cUwgEMKcdR3bRVUaiZEizTfpOU 4wNTBpbjsnPlNURUlOLCBWSVJH OC3IYLKPQQT3T4YrHxh4ZDKy jFxlJU0ymAUqVLffJo4mkYqiaO tpKT7gAICojmvhLTDveW0fVPUt nRJuaAluSN0uHUFtnebzt506 MvGkLLB4HUNwkJWfL0AcaE0nQe TlGZHbODFqC9BebYRiMUfrV368 REqvThU8OTXotuShY6TnTXSu xQlpCmF1y8W1Qk0aRV4xUO6hET ozCJ74BT52bWTst4D2kXH0F8Za ZJVavsinkuadaFW7KMBjDHGk gN95dNYuFSpfPg8lt1X2t148QQ GvEYNjaN59We2lbIkwEBDxlTZR lV4ymdjfx4xzdsjiWtUyVSRb KVk9LXc1NLHcwQeiYgXiGGV2Sq H0PDW8jFEseG8ifKbvawgokV1g Oyc+CtkmEETtxnS9O8JmNnh6 ZLQrnJxpAD2ijVIhGTnkBd2jmP liwVomFD7bYBZyilvrHOPjqR5h DESvwHNohDnsMF6bDPJxbyqc r830QlCbGVA2YEYtgKAoO8JzsJ 3tDuBxUTQoXLSmY5HkqPBkVJdn Y314UXkiStQ9APVxkdLpL4Yb WZIpvSojWsS8n6Z7Ed5SLG6KBW O6D7EsHfr5AARexJsqWM9eiOPf QNeyZx7alGhweTaxAU3wEVAi pymuVFHkpL5zTZWrgHQlvJcmXA 9vRIUsyvghv866YmTaHRA5GMSe mDOqJ7GxlU8cEtOyUUIkWUEd K2CynMGjADwuT002UAdpXvT3NW YnymLjX7NoILSdjFmtGkJ0i4Y1 Eb4NdYHjR8LbB3j5Q1LxMgch dHI+OP74DCAdMR94uSTawGWln9 zyoGr1VzAxTGOlHKO4mDxyZLup n3ZzEFFkY86ihKFuc1N2RFTx qDeawQOcQoOdhMF4jS2uXYzcqs mkw0okpgazOplnc7vxrf59jG71 P77nZZunHNOzEWZnPCIqASMi nCnjdd0fuC8aTc6+NDKtmYN6xC V9nV1mDuElFrV8FBrfG743RaNw iNVpWdviw4sra3tmlYp4HaQf RLBqmfAhsRyoLCJ3e1ErTb72B8 9sIHdpZHRoPSIyMCUiIHZhbGln jl4hxI5hRa7+CC0gi0idse97 xZ65yWJ+GWCyCLK9aVdhDBczRC XasX1oBLyaYiY8IGNmBiUhsK51 dOEzRSewRk0hhJegpWyoCE2u VIKoqmxlx033ErFji4alXFIpiX JbVZsbNSL7M88wo7T5TGHqQJHf PBI8oIZ8dP4ydXaxmlijlVWk zQocbqXqlIpjZDzqMYtdM976LN NblBlbGpSfnTKgG9cdzxYTDK2b OjwvdGQ+UBMqRRJ2hJxhVFeq MJPfkF8wDKPdX0y9CtJsVlR2XN neD1WfopB2DULveUQxPXTdnCHS uO4jnqvgw3yhbnwkCiAoKXGx OFa4UOe2AUZhyDhrEzArTOG3Dk O4KPI8gUDymH6egCvhmyqtqN8s Oyc+RklOOjwvdGQ+PHRkIHN0 nTwxQRkdEZIjrK0eRRLsZ3w7Gy ZqLuV2PCojU7TqczK8ZDGjhCLh FCHliIRFjF0cvodvf7nzsklk SaEhGYXsZKq9SCz5IKDdlJpoAc WjMNG6EjW8ZZQ4dRVuuA0knWvl ylxjxC7vBpa+TVJOOjwvdGQ+ SMRzGIW3wVpnPQcbHTEvhO1cNC GjE0q3CaGmHmD7PQafC8YyyjN1 EHJewJNdIZIpwSERrA0tmaly m9wmtpwsGaDyITArSIc0QDf1NM FvxYkpWnNiWLM0FdD1WCA0sXWe kH0vuAceingdiQ4ePub+UGF5 BSQ2BN28SO29Y7AyCcqpbDYbnN U+PHRhYmxlIHdpZHRoPScxMDAl JiEloTkqGV6tLu7rVDTgJPEg bGx (more content not included)... Normal [facility] ED Clinical Summaryon 2021 ED Clinical Summary [facility] - Emergency Department [address] [place], [place] [id number] ED Clinical Summary PERSON INFORMATION Name: ZULEIKA WYATT Age: 31 Years Sex: FEMALE : 1990 MRN: Acct#: Visit Reason: Rib/trunk pain-swelling; ABD PAIN Arrival: 11/13/2021 16:30:24 Discharge: 11/13/2021 18:01:00 LOS: 000 01:31 Check In: 11/13/2021 16:30:24 Checkout:11/13/2021 18:01:00 Address: [address] [place] [address] PCP: Andie Stoddard PROVIDER INFORMATION Provider Role Assigned Unassigned Johnson De Santiago ED 11/13/2021 16:34:49 Alfreda RN, [place] ED Nurse [...] With: Address: When: CUONG ORTIZ [address] [id number] Within 1 to 2 days Comments: Diagnosis [...] results be sent to Dr. Ortiz, your REGIONAL SALES ENGINEER physician. She will contact his office [...] Patient/family/caregiver verbalizes understanding of instructions given Comment: [facility] ED Note-Nursingon 11-13-2021 ED Note-Nursing [...] with steady gait and no assistance. Normal [facility] ED Patient Summaryon 022 ED Patient Summary [facility] - Emergency Department [address] [id number] PATIENT DISCHARGE INSTRUCTIONS Patient Information Name: ZULEIKA WYATT Age: 31 Years Date of : 1990 Reason For Visit: Rib/trunk pain-swelling; ABD PAIN Arrival Time: 11/13/2021 16:30:24 Primary Care Physician: Andie Stoddard Attending Physician: Gamaliel Wyman MD Comment: Visit Diagnosis: Diagnoses This Visit Elevated blood pressure reading (R03.0) History of abdominal pain (Z87.898) at early stage (Z34.90) Rib/trunk pain-swelling ([id number]) Prescription Information: If you have been given a prescription for narcotics, seek immediate medical attention if you have any difficulty breathing or any sudden status changes such as confusion and sleepiness. If you or anyone you know is experiencing suicidal thoughts, mental health, alcohol and/or drug addiction problems; contact the [facility] 07/01 Crisis Hotline -Text 4HEFK vq 955710. If you received any narcotics, sedation, or [...] With: Address: When: CUONG ORTIZ [address] [place] [address] Within 1 to 2 days Comments: Diagnosis [...] results be sent to Dr. Ortiz, your REGIONAL SALES ENGINEER physician. She will contact his office [...] and treatment you received today in the [facility] Emergency Department were for an urgent problem and are not intended as complete care. It is important for you to follow up with a doctor, nurse practitioner, or physician?s senior care assistant for ongoing care. If your [...] so we can reach you if necessary. [facility] Emergency Department has provided you with a complete list of medications post discharge. Please inform your music worker/provider of your visit and for further instruction on these medications. Any specific questions regarding your chronic medications and dosages should be discussed with your primary care physician(s) and/or pharmacist. New Medications Printed Prescriptions [facility] Prescription (Quantitative beta-hCG) Quantitative beta-hCG. Please call [...] Temporal: 3 (more content not included)... Normal [facility] hCG Quantitativeon 2 hCG Quantitative 39830.0 mIU/mL High 0.0-0.6 [facility] Comment on above: Order Comment: Lucy whitney call or fax results to Dr. Ortiz's office Result Comment: Resu lt confirmed by dilution Post-Menopausal Reference Range is: 0.1-11.6 mIU/mL Performed By: #### 7 [id number] #### [facility] (DEFAULT) [address] [place] [address] Coding Summary.on 12-19-2018 Coding Summary. CODING DATE: 019 FINAL [facility] DS[facility] STATUS: Left Against Medical Advice PAYOR: Medicaid [...] Date Saved: 12/19/2018 10:35 am Normal [facility] ED Clinical Summaryon 2018 ED Clinical Summary (Inserted Image. Elena ble to display) [address] [address] ED Clinical Summary Person Information Name: ZULEIKA VILLALTA/Melvin Age: 28 Years : 1990 12:00 AM Sex: Female Language: PCP: Marital Status: Phone: [phone] Visit Id: Visit Reason: Test; MENSTRUAL PROBLEMS [...] 12/15/2018 5:58 PM 12/15/2018 5:58 PM ADDRESS: [address] [place] [id number] [facility] NOTES: MEDICAL INFORMATION: Prescriptions Given: PATIENT EDUCATION INFORMATION: Instructions: Follow up: DIAGNOSIS: Normal [facility] ED Patient Education Noteon 12-15-2018 ED Patient Education Note Normal [facility] ED Patient Summaryon 019 ED Patient Summary (Inserted Image. Elena ble to display) [address] [address] Patient Discharge Instructions Person Information Name: ZULEIKA VILLALTA Age: 28 Years Arrival Date: 12/15/2018 4:37 PM Discharge Diagnosis: Primary Care Physician: Provider Information Primary Provider: Advanced Sas Administrator:None The exam and treatment you received in the Emergency Department were for an urgent problem and are not intended as complete care. It is important that you follow up with a doctor, nurse practitioner, or physician?s senior care assistant for ongoing care. If your [...] opioids can be used to help relieve ctvocegn-qb-vqpcsv pain and are often prescribed following a [...] with addiction, tell your health acute care occupational therapist and ask for guidance or call SAM[employer]?S National Helpline at 3-668-277-TVZS. v Source: [place] Department of Health and Human Services/Center for Disease Control & Prevention [facility] Medications Given: Medication Dose Route No medications found. Medication Information: Comment: Pharmacy Information: Thank you for choosing [facility] Patient Education Materials: JADEN Jacome [place] , have received the following patient education materials/instructions and have verbalized understanding: Patient Education Materials: Follow-up Instructions: Prescriptions: Patient Signature __ Date____ Clinician/Nurse Signature Date 12/15/18 17:58:10 Normal [facility] Progress Note-Nurseon 2018 Progress Note-Nurse [...] take care of her daughter. Normal [facility] U BetaHcg Qualon 12-15-2018 HCG.beta subunit (U) [Moles/Vol] Negative Normal [facility] Comment on above: Performed By: #### 2 [id number], [id number] #### [facility] [address] [place] [address] UA With Cult Reflexon 2018 Bacteria LM Ql (Urine sed) TRACE Normal Trace [facility] Comment on above: Performed By: #### 2 [id number], [id number] #### [facility] [address] [place] [address] Bilirubin Ql (U) Negative Normal Negative [facility] Comment on above: Performed By: #### 2 [id number], [id number] #### [facility] [address] [place] [address] Clarity (U) CLEAR Normal Clear [facility] Comment on above: Performed By: #### 2 [id number], [id number] #### [facility] [address] [place] [address] Color (U) YELLOW Normal Yellow [facility] Comment on above: Performed By: #### 2 [id number], [id number] #### [facility] [address] [place] [address] Epithelial cells.squamous LM.HPF (Urine sed) [#/Area] 0-2 Normal 0-2 [facility] Comment on above: Performed By: #### 2 [id number], [id number] #### [facility] [address] [place] [address] Glucose Test strip (U) [Mass/Vol] Negative Normal Negative [facility] Comment on above: Performed By: #### 2 [id number], [id number] #### [facility] [address] [place] [address] Hemoglobin Ql (U) Negative Normal Negative [facility] Comment on above: Performed By: #### 2 [id number], [id number] #### [facility] [address] [place] [address] Ketones (U) [Mass/Vol] Negative Normal Negative Fi [facility] Comment on above: Performed By: #### 2 [id number], [id number] #### [facility] [address] [place] [address] [place].plasma/[place] .RBC (Bld) [Mass ratio] 0-3 Normal 0-3 [facility] Comment on above: Performed By: #### 2 [id number], [id number] #### [facility] [address] [place] [address] Nitrite Ql (U) Negative Normal Negative [facility] Comment on above: Performed By: #### 2 [id number], [id number] #### [facility] [address] [place] [address] pH (U) 6.5 [pH] 5.0-9.0 [facility] Comment on above: Performed By: #### 2 [id number], [id number] #### [facility] [address] [place] [address] Protein (U) [Mass/Vol] Negative Normal Negative [facility] Comment on above: Performed By: #### 2 [id number], [id number] #### [facility] [address] [place] [address] Specific gravity (U) [Rel density] 1.010 1.005-1.03 0 [facility] Comment on above: Performed By: #### 2 [id number], [id number] #### [facility] [address] [place] [address] UA Spec Desc Clean Catch Normal [facility] Comment on above: Performed By: #### 2 [id number], [id number] #### [facility] [address] [place], [place] [id number] Urobilinogen Qn (U) 0.2 {Pamela'U}/dL Normal 0.0-1.0 [facility] Comment on above: Performed By: #### 2 [id number], [id number] #### [facility] [address] [place] [address] WBC Auto Ql (U) Negative Normal Negative [facility] Comment on above: Performed By: #### 2 [id number], [id number] #### [facility] [address] [place] [address] WBC LM.HPF (Urine sed) [#/Area] 0-5 Normal 0-5 [facility] Comment on above: Performed By: #### 2 [id number], [id number] #### [facility] [address] [place] [address] Auto Diffon 12-12-2017 Basophils Auto #/vol (Bld) 0.1 E3/mcL Normal 0.0-0.2 [facility] Comment on above: Order Comment: Order Added by Discern Expert. Performed By: #### 2 [id number] ####[address] [id number] [place] [address] Basophils/100 WBC Auto (Bld) 0.9 % Normal 0.0-2.0 [facility] Comment on above: Order Comment: Order Added by Discern Expert. Performed By: #### 2 [id number] ####[facility] [id number] [place] [address] Eos Absolute 0.0 E3/mcL Normal 0.0-0.7 [facility] Comment on above: Order Comment: Order Added by Discern Expert. Performed By: #### 2 [id number] ####KADENMorelia [id number] [place] [address] Eosinophils/100 leukocytes 0.4 % Normal 0.0-11.0 [facility] Comment on above: Order Comment: Order Added by Discern Expert. Performed By: #### 2 [id number] ####KADENMorelia BairdDfsZcon0496 [place] [address] Lymphocytes 1.4 E3/mcL Normal 1.2-3.4 [facility] Comment on above: Order Comment: Order Added by Discern Expert. Performed By: #### 2 511956 ####KADENMorelia BairdYecUniy5344 [place] [address] Lymphocytes/100 leukocytes 16.6 % Low 20.0-55.0 [facility] Comment on above: Order Comment: Order Added by Discern Expert. Performed By: #### 2 315720 ####KADEN GgcKymq8142 [place] [address] [place] Absolute 0.5 E3/mcL Normal 0.0-0.7 [facility] Comment on above: Order Comment: Order Added by Discern Expert. Performed By: #### 2 789919 ####KADENMorelia BairdAlfBhbj4328 [place] [address] Monocytes/100 leukocytes 5.5 % Normal 0.0-10.0 [facility] Comment on above: Order Comment: Order Added by Discern Expert. Performed By: #### 2 593358 ####KADEN Luceroo[address] [place] [address] Neutro Absolute 6.7 E3/mcL High 1.4-6.5 [facility] Comment on above: Order Comment: Order Added by Discern Expert. Performed By: #### 2 034838 ####KADEN [address] [place] [id number] Neutro Auto 76.6 % High 37.0-75.0 [facility] Comment on above: Order Comment: Order Added by Discern Expert. Performed By: #### 2 692237 ####KADEN [address] [place] [address]46[address] CBC w/ Auto Diffon 8 Erythrocyte distribution width Auto Ratio (RBC) 15.0 % High 11.5-14.5 [facility] Comment on above: Performed By: #### 2 108864 ####KADEN [address] [place] [address]46[address] Erythrocytes (RBC) 4.94 E6/mcL Normal 3.90-5.[address] [facility] Comment on above: Performed By: #### 2 280382 ####KADEN [address] [place] [address]46[address] Hematocrit (HCT) 40.0 % Normal 36.0-48.0 [facility] Comment on above: Performed By: #### 2 504045 ####KADEN [address] [place] [address]46[address] Hemoglobin mass conc (Bld) 13.0 g/dL Normal 12.0-16.0 [facility] Comment on above: Performed By: #### 2 021958 ####KADEN [address] [place] [address] MCH 26.2 pg Low 27.0-31.0 [facility] Comment on above: Performed By: #### 2 719690 ####KADEN [address] [place] [address]46[address] MCHC mass conc (RBC) 32.4 g/dL Low 33.0-37.0 [facility] Comment on above: Performed By: #### 2 983842 ####KADEN [address] [place] [address] MCV 81.0 fL Normal 78.0-100.0 [facility] Comment on above: Performed By: #### 2 955262 ####KADEN [address] [place] [address] Platelet mean volume (PMV) 7.5 fL Normal 7.4-11.0 [facility] Comment on above: Performed By: #### 2 758259 ####KADEN [address] [place] [address] Platelets 347 E3/mcL Normal 130-400 [facility] Comment on above: Performed By: #### 2 678398 ####KADEN [address] [place] [address] WBC (Leukocytes) 8.7 E3/mcL Normal 3.6-11.0 [facility] Comment on above: Performed By: #### 2 147114 ####KADEN [address] [place] [address] CMPon 12-12-2017 Alanine aminotransferase (ALT) 14 Int._Unit/L Normal 10-40 [facility] Comment on above: Performed By: #### 2 925606 ####KADEN [address] [place] [address] Albumin 3.8 g/dL Normal 3.2-5.0 [facility] Comment on above: Performed By: #### 2 223171 ####KADEN [address] [place] [address] Albumin/Globulin Ratio 1.0 {ratio} Low 1.1-1.9 [facility] Comment on above: Performed By: #### 2 315102 ####KADEN [address] [place] [address] Alk Phos 75 Int._Unit/L Normal 42-121 [facility] Comment on above: Performed By: #### 2 324793 ####KADEN [address] [place] [address] Aspartate aminotransferase (AST) 18 Int._Unit/L Normal 10-42 [facility] Comment on above: Performed By: #### 2 829736 ####KADEN [address] [place] [address] Bili Total 1.0 mg/dL Normal 0.2-1.0 [facility] Comment on above: Performed By: #### 2 283476 ####KADEN [address] [place] [address] BUN/Creatinine Ratio 12.5 ratio Normal 5.4-30.0 [facility] Comment on above: Performed By: #### 2 613730 ####KADEN [address] [place] [address] Creatinine 0.8 mg/dL Normal 0.6-1.3 [facility] Comment on above: Performed By: #### 2 900272 ####KADEN [address] [place] [address] Globulin 3.8 g/dL Normal 2.0-4.0 [facility] Comment on above: Performed By: #### 2 732569 ####KADEN [address] [place] [address] Protein 7.6 g/dL Normal 6.4-8.3 [facility] Comment on above: Performed By: #### 2 581752 ####KADEN [address] [place] [address] Urea nitrogen 10 mg/dL Normal 7-18 [facility] Comment on above: Performed By: #### 2 292926 ####KADEN BairdGlnUisb5329 [place] [address] Calcium 9.3 mg/dL Normal 8.4-10.2 [facility] Comment on above: Performed By: #### 2 891406 ####KADEN BairdDpaWukm6969 [place] [address] Chloride 105 mmol/L Normal 98-107 [facility] Comment on above: Performed By: #### 2 331568 ####KADEN BairdCewFugn3776 [place] [address] CO2 25.1 mmol/L Normal 24.0-30.0 [facility] Comment on above: Performed By: #### 2 316169 ####KADEN [address] [place] [address] Glucose mass conc 101 mg/dL High 70-99 [facility] Comment on above: Performed By: #### 2 720130 ####KADEN [address] [place] [address] Potassium molar conc 3.4 mmol/L Low 3.5-5.1 [facility] Comment on above: Performed By: #### 2 977931 ####KADEN JroHirf[address] [place] [address] Sodium 140 mmol/L Normal 136-145 [facility] Comment on above: Performed By: #### 2 551063 ####KADEN [address] [place] [address] Lipase Levelon 12-12-2017 Lipase Lvl 30 U/L Normal 8-57 [facility] Comment on above: Performed By: #### 2 783085 ####KADEN [address] [place] [address] UA Completeon 12-12-2017 UA Blood 3+ Normal Negative [facility] Comment on above: Performed By: #### 2 628331 ####KADEN V[address]Ezwz[address] [place] [address] UA Bacteria Trace Abnormal None [facility] Comment on above: Performed By: #### 2 510510 ####KADEN OuiRdqs6786 [place] [address] UA Clarity SltCloudy Abnormal Clear [facility] Comment on above: Performed By: #### 2 108456 ####KADEN SqiIodc8539 [place] [address] UA Hyal Cast 0-2 Normal 0-2 [facility] Comment on above: Performed By: #### 2 574477 ####KADEN BairdBkxXuhh1915 [place] [address] UA Leuk Est 3+ Abnormal Negative [facility] Comment on above: Performed By: #### 2 803327 ####KADENMorelia BairdJxjOfbd[address] [place] [address] UA Mucous Many Abnormal Trace [facility] Comment on above: Performed By: #### 2 910218 ####KADEN [address] [place] [address] UA Nitrite Negative Normal Negative [facility] Comment on above: Performed By: #### 2 709925 ####KADEN [address] [place] [address] UA pH 5.0 Normal 4.6-8.0 [facility] Comment on above: Performed By: #### 2 895842 ####KADEN [address] [place] [address] UA Protein 1+ Abnormal Negative [facility] Comment on above: Performed By: #### 2 409031 ####KADEN [address] [place] [address] UA Spec Grav 1.026 Normal 1.003-1.03 0 [facility] Comment on above: Performed By: #### 2 566830 ####KADEN TvsCqhb4972 [place] [address] UA Squam Epithelial 0-5 Normal 0-[address] [facility] Comment on above: Performed By: #### 2 763804 ####KADEN UqaVzpi2843 [place] [address] UA Urobilinogen 2.0 mg/dL Abnormal [facility] Comment on above: Performed By: #### 2 531502 ####KADEN YwyPaev9235 [place] [address] UA WBC >50 Abnormal 0-5 [facility] Comment on above: Performed By: #### 2 736644 ####KADEN FaeAzij0952 [place] [address] Urine, color Yellow Normal Yellow [facility] Comment on above: Performed By: #### 2 918088 ####KADEN FoiQehm7535 [place] [address] Urine, erythrocytes 20-50 Abnormal 0-[address] [facility] Comment on above: Performed By: #### 2 584144 ####KADENMorelia BairdBowGhrm2750 [place] [address] Urine, glucose Negative Normal Negative [facility] Comment on above: Performed By: #### 2 241554 ####KADEN [address] [place] [address] Urine, ketones presence Trace Normal [facility] Comment on above: Performed By: #### 2 760647 ####KADEN [address] [place] [address] Urine, urobilinogen Negative Normal Negative [facility] Comment on above: Performed By: #### 2 791679 ####KADEN [address] [place] [address] eGFRon 12-12-2017 eGFR AA >60 Normal [facility] Comment on above: Order Comment: Order Added by Discern Expert. Performed By: #### 2 539659 ####KADEN [address] [place] [address] eGFR (non-black) mL/min/{1.73_m2} Normal [facility] Comment on above: Order Comment: Order Added by Discern Expert. Performed By: #### 2 312487 ####KADEN BairdCskShnt3377 [place] [address] HISTORY PHYSICALon 8 HISTORY PHYSICAL HNO ID: [id number] thor: Clara ChaoeService: Maternal MedicineAuthor Type: PhysicianType: [...] in 4 weeks with provider.DO Debo Vanegas [facility] PROGRESSon 12-02-2017 PROGRESS HNO ID: [id number] thor: Marie Lema (Res) LendeService: ObstetricsAuthor Type: [...] with more than 50% of the total abzf-ai-rrybjtui of the visit in counseling / coordination [...] decreasing.Ambulating without difficulty.OBJECTIVE:PHYSI GEN EXAM:Heart: RR, S1, J5Ntnyj: clear to auscultationAbdomen: Soft Bowel sounds present [...] SOCIAL WORKon 12-02-2017 SOCIAL WORK HNO ID: [id number] thor: Meredith Davidson) SaschaPaulooService: Social WorkAuthor Type: Social WorkerType: Social WorkFiled: 12/02/2017 12:25 PMNote Text:SOCIAL WORK CONSULT NOTESERVICE DATE: 12/02/2017SERVICE TIME: 1015Referred by: Jose for visit:Maternal/Infant - adjustment to conditionLiving Arrangement: HomeLives With: PartnerFinancial Resources: DisabledPrimary Contact:Extended Emergency Contact Information DARRELL BRANCH, [facility] Emergency Contact: No,ContactRelation: OtherSupportive: YesOther Important [...] from hospital. (FOBparents are Anamika Munoz of [address] [place] [address] , [facility]).Per pt and FOB, all needed baby supplies and equipment are at the [facility] and a nursery has been set up.Per pt, name of baby girl is Martha Branch.Pt states she is on SSI and WIC.Pt shares that she is in ongoing counseling [facility] [place] and has appointments 2 x per month.Discussed with pt and FOB signs and sx of depression; safe babysleep and discussed ways to deal with crying infant. Pt again states sheis going to rely on her support system.No additional issues identified at this time. Encouraged pt and FOB toutilize services through [facility]. Providedcontact information.Outcome/Recomm endations:Assistance through JFSTime spent (minutes): 60SIGNATURE: CARLA Goncalves PATIENT NAME: Zuleika LambATE: December 02, 2017 : 11:10 AM PAGER/CONTACT#: [facility] ANES INTRAOPon 12-01-2017 ANES INTRAOP HNO ID: [id number] thor: Terrance Leblanc) Richyervice: AnesthesiologyAuthor Type: Nurse AnesthetistType: Anesthesia IntraOpFiled: 12/01/2017 9:41 AMNote Text:ANALGESIA PROGRESS RECORDCATHETER REMOVAL/END OF CASESERVICE DATE: 12/01/2017REMOVAL DATE AND TIME: 11/30/2017, 3DELIVERY DATE AND TIME: 11/30/2017 at 5:49 PMCATHETER REMOVAL:Catheter Removal: See [facility] Nursing noteSIGNATURE: Terrance Contreras APRN.CRNA PATIENT NAME: Zuleika Hernandez: December 01, 2017 : 9:40 AM PAGER/CONTACT #: [facility] ANES Keke 12-01-2017 ANES POST HNO ID: [id number] thor: Terrance Lockhartervice: AnesthesiologyAuthor Type: Nurse AnesthetistType: Anesthesia PostOpFiled: 12/01/2017 9:43 AMNote Text:POST ANESTHESIA EVALUATION NOTESERVICE DATE: 12/01/2017SERVICE TIME: 9:42 AMDOB: 1990Vitals: 12/01/1799Temp: 36.7 ?C (98.1 ?F) 36.8 ?C (98.2 ?F) 36.4 ?C (97.5 ?F) 36.4 ?C (97.5?F) 12/01/1799916705UO: 119/55 102/61 107/57 116/72 12/01/1799ulse: 90 79 [...] by Anesthesia Service: NoneOther Remarks:SIGNATURE: Terrance Contreras APRN.HOSPICE COMMUNITY LIAISON PATIENT NAME: Zuleika BecerrilnDATE: December 01, 2017 : 9:42 AM PAGER/CONTACT #: Debo [facility] PROGRESSon 12-01-2017 PROGRESS HNO ID: [id number] thor: Marie Lema (Res) LendeService: ObstetricsAuthor Type: [...] decreasing.Ambulating without difficulty.OBJECTIVE:PHYSI GEN EXAM:Heart: RR, S1, J4Kxgqc: clear to auscultationAbdomen: Soft Bowel sounds present [...] 2017 ABO group Nom (Bld) A Normal [facility] Comment on above: Performed By: #### A JESSIE #### [place] [address] RH Type Positive Normal [facility] Comment on above: Performed By: #### A JESSIE #### [place] [id number] ANES PREOPon 11-30-2017 ANES PREOP HNO ID: [id number] thor: Aaron Leblanc) PoloService: AnesthesiologyAuthor Type: Nurse [...] of Sleep Apnea: DeniesHematocritDate Value Ref Range Ymnqah7111/30/2017 32.3 (L) 34.1 - 44.9 % Final Platelet CountDate Value Ref Range Vgkfgh4411/30/2017 193 182 - 369 thou/cmm Final Vitals: 910503 523343 139 143BP: 142/75 138/81Pulse: 75 81Resp:Temp: 36.6 [...] as needed. Disp: Rfl:Inpatient medications reviewed in [facility].I have interviewed and examined the patient. I have reviewed the medicalrecord , pertinent consults and/or the pre-anesthesia evaluation,pertinent labs, and test results.Significant changes in the patient's condition since the History andPhysical, not otherwise documented in primary service progress notes: NoThis contains updated information obtained within 48 hours ofSurgery/Procedure.SIGNAT URE: Hema Cuellar APRN.HOSPICE COMMUNITY LIAISON PATIENT NAME: Zuleika LambATE: November 30, 2017 : 12:13 PM : 1990 Normal [facility] Auto Diffon 11-30-2017 Basophils Auto #/vol (Bld) 0.1 E3/mcL Normal 0.0-0.2 [facility] Comment on above: Order Comment: Order Added by Discern Expert. Performed By: #### 2 742949 ####KADEN [address] [place] [address] Basophils/100 WBC Auto (Bld) 0.9 % Normal 0.0-2.0 [facility] Comment on above: Order Comment: Order Added by Anamaria Expert. Performed By: #### 2 064538 ####KADEN [address] [place] [address] Eos Absolute 0.1 E3/mcL Normal 0.0-0.7 [facility] Comment on above: Order Comment: Order Added by Discern Expert. Performed By: #### 2 315337 ####KADEN [address] [place] [address] Eosinophils/100 leukocytes 1.0 % Normal 0.0-11.0 [facility] Comment on above: Order Comment: Order Added by Discern Expert. Performed By: #### 2 194821 ####KADEN BairdQypJzdo7794 [place] [address] Lymphocytes 2.0 E3/mcL Normal 1.2-3.4 [facility] Comment on above: Order Comment: Order Added by Discern Expert. Performed By: #### 2 754926 ####KADEN [address] [place] [address] Lymphocytes/100 leukocytes 22.1 % Normal 20.0-55.0 [facility] Comment on above: Order Comment: Order Added by Discern Expert. Performed By: #### 2 515700 ####KADEN CxcWkvv9559 [place] [address] [place] Absolute 0.7 E3/mcL Normal 0.0-0.7 [facility] Comment on above: Order Comment: Order Added by Discern Expert. Performed By: #### 2 839175 ####KADEN [address] [place] [address] Monocytes/100 leukocytes 7.5 % Normal 0.0-10.0 [facility] Comment on above: Order Comment: Order Added by Discern Expert. Performed By: #### 2 292390 ####KADEN RfhIrrc8779 [place] [address] Neutro Absolute 6.1 E3/mcL Normal 1.4-6.5 [facility] Comment on above: Order Comment: Order Added by Discern Expert. Performed By: #### 2 659770 ####KADEN BairdJzdCpxq6864 [place] [address] Neutro Auto 68.5 % Normal 37.0-75.0 [facility] Comment on above: Order Comment: Order Added by Discern Expert. Performed By: #### 2 157819 ####KADEN [address] [place] [address] CBC w/ Auto Diffon 8 Erythrocyte distribution width Auto Ratio (RBC) 14.3 % Normal 11.5-14.5 [facility] Comment on above: Performed By: #### 2 344559 ####KADEN [address] [place] [address] Erythrocytes (RBC) 4.34 E6/mcL Normal 3.90-5.[address] [facility] Comment on above: Performed By: #### 2 227575 ####KADEN [address] [place] [address] Hematocrit (HCT) 35.1 % Low 36.0-48.0 [facility] Comment on above: Performed By: #### 2 721906 ####KADEN [address] [place] [address] Hemoglobin mass conc (Bld) 11.6 g/dL Low 12.0-16.0 [facility] Comment on above: Performed By: #### 2 363963 ####KADEN [address] [place] [address] MCH 26.6 pg Low 27.0-31.0 [facility] Comment on above: Performed By: #### 2 727729 ####KADEN [address] [place] [address] MCHC mass conc (RBC) 32.9 g/dL Low 33.0-37.0 [facility] Comment on above: Performed By: #### 2 062698 ####KADEN [address] [place] [address] MCV 80.9 fL Normal 78.0-100.0 [facility] Comment on above: Performed By: #### 2 337759 ####KADEN [address] [place] [address] Platelet mean volume (PMV) 7.6 fL Normal 7.4-11.0 [facility] Comment on above: Performed By: #### 2 332155 ####KADEN BairdQvqUijg6808 [place] [address] Platelets 217 E3/mcL Normal 130-400 [facility] Comment on above: Performed By: #### 2 832704 ####KADEN IcfTvnv5535 [place] [address] WBC (Leukocytes) 8.8 E3/mcL Normal 3.6-11.0 [facility] Comment on above: Performed By: #### 2 122818 ####KADEN JbmQbkp3288 [place] [address] CONSULTon 11-30-2017 CONSULT HNO ID: [id number] thor: Marie Lema (Res) LendeService: ObstetricsAuthor Type: [...] T0 L0 SAB1 TAB0 Ectopic0 Multiple0 Live Nqgcin8Mutp of Baby 1: Not recorded Date: 2014 [...] pupils equal, no thyromegalyLungs: clearHeart: RR, S1, H1Bgijqkg: soft, nontender, no massesUterus: soft, NTExtremities: 1+ [...] Epi prn4. FB soon5. [place] [address]. anomalies- prominent cisterna magna, bilateral periventrcularnodular heterotopia, [...] as . H/o tobacco abuseSigned out to [facility] for deliveryDr. Amado reviewed with Dr. MaldonadoSIGNATURE: Marie Hassan DO PATIENT NAME: Zuleika LambATE: November 30, 2017 : 6:49 AM PAGER/CONTACT #: [phone] Normal [facility] HISTORY PHYSICALon HISTORY PHYSICAL HNO ID: [id number] thor: Marie Lema (Res) JabiereService: ObstetricsAuthor Type: [...] T0 L0 SAB1 TAB0 Ectopic0 Multiple0 Live Yfnwbp7Kmxn of Baby 1: Not recorded Date: 2014 [...] pupils equal, no thyromegalyLungs: clearHeart: RR, S1, P2Qmwdqtb: soft, nontender, no massesUterus: soft, NTExtremities: 1+ [...] Epi prn4. FB soon5. [place] [address]. anomalies- prominent cisterna magna, bilateral periventrcularnodular heterotopia, [...] EF 55%.10. H/o maternal clubfoot-s/p repair as xlusas07. H/o tobacco abuseSigned out to [facility] for deliveryD/w Dr. AmadoSIGNATURE: Marie Hassan DO PATIENT NAME: Zuleika LambATE: November 30, 2017 : 6:49 AM PAGER/CONTACT #: [phone] Normal [facility] Hemogramon 11-30-2017 Erythrocyte distribution width Ratio (RBC) 13.6 % Normal 11.7-14.4 [facility] Comment on above: Performed By: #### C BC1 #### [place] [address] Hematocrit Volume Fraction (Bld) 32.3 % Low 34.1-44.9 [facility] Comment on above: Performed By: #### C BC1 #### [place] [address] Hemoglobin mass conc (Bld) 10.4 g/dL Low 11.2-15.7 [facility] Comment on above: Performed By: #### C BC1 #### [place] [address] MCH Entitic mass (RBC) 26.4 pg Normal 25.6-32.[address] [facility] Comment on above: Performed By: #### C BC1 #### [place] [address] MCHC mass conc (RBC) 32.2 % Normal 31.6-34.8 [facility] Comment on above: Performed By: #### C BC1 #### [place] [address] MCV Entitic volume (RBC) 82.0 fL Normal 79.4-94.8 [facility] Comment on above: Performed By: #### C BC1 #### [facility] [address] [place] [address] Platelet mean volume Entitic volume (Bld) 9.9 fL Normal 9.4-12.3 [facility] Comment on above: Performed By: #### C BC1 #### [facility] [address] [place] [address] Platelets #/vol (Bld) 193 thou/cmm Normal 182-369 [facility] Comment on above: Performed By: #### C BC1 #### [facility] [address] [place] [address] RBC #/vol (Bld) 3.94 mil/cmm Normal 3.93-5.22 [facility] Comment on above: Performed By: #### C BC1 #### [facility] [address] [place] [address] RDW SD 40.6 fl Normal 36.4-46.3 [facility] Comment on above: Performed By: #### C BC1 #### [facility] [address] [place] [address] WBC #/vol (Bld) 9.85 thou/cmm Normal 3.98-10.04 [facility] Comment on above: Performed By: #### C BC1 #### [place] [address] LD NOTEon 11-30-2017 LD NOTE HNO ID: [id number] thor: Marie Lema (Res) LendeService: ObstetricsAuthor Type: ResidentType: LANDD Delivery NoteFiled: 11/30/2017 6:19 PMNote Text: -------Attestation signed by Serenity Maldonado MD at 12/01/2017 6:04 PMI saw and evaluated the patient. I reviewed the resident's note and agree,except that patient seen by [facility] (patient has FAS, fetus with multipleanomlaies) service, consult placed to [facility] for management of labor AND delivery.Liset primsathish presented at 39w with PROM, had Pugh balloon AND Pitocin foraugmentaion. Late in labor noted tachycardia that improved with IVFB ANDTylenol (mother rico had elevated temp but felt warm). [facility] NICU team for evaluation (was allowed tohave delivery to abdomen AND 30 sec delay for cord clamping). Pushed well AND hadSVD of a viable female (APGARS 8,9, weight of 3200g/7#1oz) over intactperineum. Uterus slightly boggy after delivery, responded to massage AND Pitocininfusion, EBL ~500cc.Serenity Maldonado MD ----OBSTETRICSDELIVERY SUMMARY - VAGINAL DELIVERYGestational Age at Delivery: 03n5zNejcxft Date: 11/30/2017Service Time: 1799Kebethn, Bg Zuleika Dillard [[id number]]Labor EventsRupture Date: 11/30/17Rupture Time: 224Rupture Type: PROMFluid [...] NURSING PROGon 11-30-2017 NURSING PROG HNO ID: [id number] thor: Marguerite (Rn) ANEUDY Albarranervice: (none)Author Type: Registered NurseType: Nursing Progress NoteFiled: 11/30/2017 7:06 PMNote Text: INTRODUCED SELF TO PATIENT AND SUPPORT PERSONS. PLAN OF CARE DISCUSSED.ASSESSMENT PERFORMED. PATIENT DENIES COMPLAINTS. Normal [facility] NURSING PROG HNO ID: [id number] thor: Darcie (Rn) ANEUDY Landeroservice: NursingAuthor Type: Registered NurseType: Nursing Progress NoteFiled: 11/30/2017 10:03 AMNote Text:Patient up to shower for comfort. Boyfriend at side. On telemetrymonitors. RN remains in room. FHR difficult to maintain continuoustracing Normal [facility] NURSING PROG HNO ID: [id number] Author: Norah (Rn) KARRI Eastman Service: Nursing Author Type: Registered Nurse Type: Nursing Progress Note Filed: 11/30/2017 7:18 AM Note Text: Report given to Darcie RN and care transferred at this time. [facility] PROCEDUREon 11-30-2017 PROCEDURE HNO ID: [id number] thor: Aaron Lelbanc) PoloService: AnesthesiologyAuthor Type: Nurse AnesthetistType: ProceduresFiled: 11/30/2017 [...] Catheter in Epidural Space: 5 cmInterspace: approximately L2-R5Eohnth of Attempts: 1Wet Tap Complication: NoDural Puncture [...] nurses' documentation for additional vitals.SIGNATURE: Hema Cuellar APRN.HOSPICE COMMUNITY LIAISON PATIENT NAME: Zuleika BecerrilnDATE: November 30, 2017 : 12:27 PM PAGER/CONTACT #: [facility] PROGRESSon 11-30-2017 PROGRESS HNO ID: [id number] thor: Marie Lema (Res) LendeService: ObstetricsAuthor Type: ResidentType: Progress NotesFiled: 11/30/2017 5:04 PMNote Text:UpdatePatient is pushing in the OR. Cat I FHRT with baseline around 160s. updated and in house.Franki Neri 2017 5:04 PM [facility] PROGRESS HNO ID: [id number] Author: Darcie Washington) Tigre RN Service: Nursing Author Type: Registered Nurse Type: Progress Notes Filed: 11/30/2017 3:29 PM Note Text: Patient feeling pressure, cervical exam 9.5 cm. NICU notified. Patient feels warm, but temp 36.9. Normal [facility] PROGRESS HNO ID: [id number] thor: Marie Lema (Res) LendeService: ObstetricsAuthor Type: [...] pt comfortable4. s/p FB5. [place] [address]. anomalies- prominent cisterna magna, bilateral periventrcularnodular heterotopia, [...] EF 55%.10. H/o maternal clubfoot-s/p repair as ircgqg34. H/o tobacco abuse12. Cat II- Isolate late decelerations. Moderate variability. Continuingto make cervical change. Not on Cat II protocol.SIGNATURE: Marie Hassan DO PATIENT NAME: Zuleika LambATE: November 30, 2017 : 1:35 PM PAGER/CONTACT #: [phone] Normal [facility] PROGRESS HNO ID: [id number] thor: Yolanda (Res) GabrielaerService: ObstetricsAuthor Type: ResidentType: Progress NotesFiled: 11/30/2017 1:14 [...] (Res) Barbosa)Effacement (%): 80 (11/30/17 1309 : Yloanda (Res) Barbosa)Station: -2 (11/30/17 1309 : Yolanda [...] pt comfortable4. s/p FB5. [place] [address]. anomalies- prominent cisterna magna, bilateral periventrcularnodular heterotopia, [...] NAME: Zuleika BecerrilnDATE: November 30, 2017 : 1:11 PM PAGER/CONTACT #: [phone] Normal [facility] PROGRESS HNO ID: [id number] thor: Yolanda Almonteervice: ObstetricsAuthor Type: ResidentType: Progress [...] Fluid Color: Clear (11/30/17 0853 : Darcie MagañaRn) KARRI Landeros)Additional Findings: NoneFETAL MONITORINGFHT: 145/mod/+accels/neg decelsToco: 2-4 minutesCategory: ILABSDiagnostic tests reviewed for today's visit: No new labsAssessment/Plan27 year old EGA:39w0d. Admitted for augmentation of labor forPROM?1. GBS-2. Pit per protocol3[place] [address]. [place] [address]. anomalies- prominent cisterna magna, bilateral periventrcularnodular heterotopia, [...] EF 55%.10. H/o maternal clubfoot-s/p repair as chyltc01. H/o tobacco abuseSIGNATURE: Yolanda Barbosa DO PATIENT NAME: Zuleika BecerrilnDATE: November 30, 2017 : 11:05 AM PAGER/CONTACT #: [phone] [facility] PROGRESS HNO ID: [id number] Author: Darcie Washington) Tigre RN Service: Nursing Author Type: Registered Nurse Type: Progress Notes Filed: 11/30/2017 10:35 AM Note Text: Unable to find labwork for chart. [facility] PROGRESS HNO ID: [id number] thor: Marie Lema (Res) LendeService: ObstetricsAuthor Type: [...] Pit per protocol3[place] [address]. [place] [address]. anomalies- prominent cisterna magna, bilateral periventrcularnodular heterotopia, [...] EF 55%.10. H/o maternal clubfoot-s/p repair as yjvphd20. H/o tobacco abuse?SIGNATURE: Marie Hassan DO PATIENT NAME: Zuleika LambATE: November 30, 2017 : 10:31 AM PAGER/CONTACT #: [phone] Normal [facility] PROGRESS HNO ID: [id number] thor: Darcie (Rn) ANEUDY Landeroservice: NursingAuthor Type: Registered NurseType: Progress NotesFiled: 11/30/2017 10:13 AMNote Text:Patient remains in shower. RN and boyfriend at side. EFM on telemetryand adjusted while patient in shower. Difficult to keep baby on. Normal [facility] PROGRESS HNO ID: [id number] thor: Yolanda (Res) SnyderService: ObstetricsAuthor Type: ResidentType: Progress NotesFiled: 11/30/2017 7:35 AMNote Text:In to place FB. Pt tolerated procedure well. Continues to leak clearfluid. Pt uncomfortable with contractions.Cat I FHT, reactive with accelsToco: 2-5 minsHeather Romina, PGY-1Obstetrics and GynecologyPager [phone]/7:34 AM Normal [facility] Type and Screenon 11-30-2017 ABO group Nom (Bld) A Normal [facility] Comment on above: Performed By: #### T &S #### [place] [address] Comment See Below Normal [facility] Comment on above: Result Comment: Scre en &/or Xmatch expires in 3 days at 12 midnight. Redraw patient at that time. Performed By: #### T &S #### [facility] [address] [place] [address] RH Type Positive Normal [facility] Comment on above: Performed By: #### T &S #### [facility] [address] [place], [place] [address] Progress Noteon 11-28-2017 Product Ambassador Authentication Interface Message Text Routine VisitSubjective: Zuleika Villalta is being seen today for her obstetrical visit. She is at [id number]. Patient reports no complaints. Movement: normal. She [...] CYTOTEC IOL 12-02-17 at 5 pm at [facility]. [...] echo in the [facility] POC reviewedShe would like her follow up and contraception with Dr. Ivan.The total patient time of the visit was 15 minutes, of which greater than 50% ofthe time was spent counseling and coordinating care. Normal [facility] Progress Noteon 11-22-2017 Product Ambassador Authentication Interface Message Text [facility] plan of care faxed to [facility] in event pt would arrive for urgent management. Normal [facility] Progress Noteon 11-21-2017 Product Ambassador Authentication Interface Message Text Routine VisitSubjective: Zuleika Villalta is being seen today for her obstetrical visit. She is at [id number]. Patient reports that she went to [facility] last night due toconcerns for labor. [...] [facility]In[facility] 39 weeks; CYTOTEC IOL 18 [...] scheduled for IOL on12/02/17.Oksana amado MD Normal [facility] Progress Noteon 11-12-2017 Product Ambassador Authentication Interface Message Text Call from [facility] that pt presented there in labor. [facility] plan of care and ACOGs faxed by Toan Chen. Provided after hours MFM number provided. Normal [facility] Group B Strep Cultureon 10-16 Group B Strep Culture Group B Strep Cult ure: No Group B Streptococci isolated. Source: VAG Collected: 11/07/17 09:00 Site: Vaginal/Rectal Received : 11/07/17 22:01Group B Strep Culture FINAL 11/10/17 08:34 No Group B Streptococci isolated. Normal [facility] Comment on above: Performed By: #### [facility] ####[address] [phone] Progress Noteon 11-07-2017 Product Ambassador Authentication Interface Message Text Routine VisitSubjective: Zuleika Villalta is being seen today for her obstetrical visit. She is at [id number]. Patient reports occasional nausea. No emesis. She [...] visit and BPP.Oksana Amado MD Normal [facility] Progress Noteon 05-10-2018 Product Ambassador Authentication Interface Message Text Routine VisitSubjective: Zuleika [...] counseling and coordinating care.Marco Antonio Antonio, Normal [facility] Progress Noteon 10-15-2017 Product Ambassador Authentication Interface Message Text Ped selection made. Updated prenatals Normal [facility] Progress Noteon 10-08-2017 Product Ambassador Authentication Interface Message Text Thank you for [...] size. There was a patent foramen ovale, hzcdmibdm-do-hzqy shunt.Tricuspid valve:Normal tricuspid valve. There was normal [...] fetuses and in fetuses with CHD and [id number], the ratio being below 0.3 )Impression and recommendations.1) Abnormal 3-vessel view, ascending aorta was moderately dilated. 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 thymic thoracic ratio (TT-ratio)=0.1 ( TT-ratio 0.44 in normal fetuses and in fetuses with CHD and dsnyibzojlwnp56b16, the ratio being below 0.3 )5) Normal [...] earlier ifcardiac condition/status changes in any way. [place] follow up and treatmentshould be determined on the basis of the findings on the initial echocardiogram.Counseling and/or coordination of care was greater than 35 minutes which is morethan 50% of the total time of 60 minutes spent on the encounter. Normal [facility] Product Ambassador Authentication Interface Message Text Initial VisitSubjective: Zuleika [...] weeks for OB visit and BPP in [place].Oksana Amado MD Normal [facility] Cytogenomic Microarray Nivia sis of Bloodon 09-10-2017 Cytogenomic Microarray Analysis of Blood SEE BELOW Normal [facility] Comment on above: Result Comment: SPEC IMEN: BLOODCLINICAL INFORMATION: Learning disability[F81.9]TEST: CYTOGENOMIC MICROARRAY ANALYSISRESULT SUMMARY:Normal femaleNOMENCLATURE:arr(1-22,X)s3NUVYRRUEUSHMOH & COMMENTS:The cytogenomics microarray analysis indicated no [...] whole genome microarray analysis was performed the FDA-clearedSideband Networks(R) Dx platform, which contains approximately 2.7million markers, including 1,953,246 unique non-polymorphic copy numberprobes and 743,304 single nucleotide polymorphism (SNP) probes. Thegenome-wide functional resolution of this assay is approximately 25 kbfor deletions and 50 kb for duplications. This microarray andassociated software (Chromosome Analysis Suite Dx) were manufactured [employer] and used by the Cytogenetics and Molecular DiagnosticsLaboratories of [facility] for the purpose ofidentifying DNA [...] further information regarding intendeduse and limitations, see [email or web address].Note: The Cytogenetics Laboratory has this patient's blood [...] for additional testing. 09/19/2017 BIGG GARCIA, PH.D., [facility], [facility] 09/19/2017 Performed By: #### M CRY1 ####[facility] of [address] [phone] MRI (SINGLE)on 018 MRI (SINGLE) MRI (SINGLE)CL [...] COrrelatewith Obstetric ultrasound evaluation. If needed post calre right upper quadrantultrasound can be considered.5. L4/5 mild disc bulge in the maternal spine without significant canal orforaminal stenosis.This report has been created using voice recognition software. It may containminor errors which are inherent in voice recognition technologySigned by: Dr. AJ CAMILO at 09/10/2017 10:21 Normal [facility] Progress Noteon 09-10-2017 Product Ambassador Authentication Interface Message Text The total patient time of the visit was 15 minutes, of which greater than 50% of the time was spent counseling and coordinating care. Normal [facility] Auto Diffon 09-03-2017 Basophils Auto #/vol (Bld) 0.1 E3/mcL Normal 0.0-0.2 [facility] Comment on above: Order Comment: Order Added by Discern Expert. Performed By: #### 2 [id number] ####KADEN [address] [place] [address] Basophils/100 WBC Auto (Bld) 0.5 % Normal 0.0-2.0 [facility] Comment on above: Order Comment: Order Added by Discern Expert. Performed By: #### 2 551191 ####KADEN [address] [place] [address] Eos Absolute 0.0 E3/mcL Normal 0.0-0.7 [facility] Comment on above: Order Comment: Order Added by Discern Expert. Performed By: #### 2 087443 ####KADEN [address] [place] [address] Eosinophils/100 leukocytes 0.4 % Normal 0.0-11.0 [facility] Comment on above: Order Comment: Order Added by Discern Expert. Performed By: #### 2 515843 ####KADEN [address] [place] [address] Lymphocytes 1.3 E3/mcL Normal 1.2-3.4 [facility] Comment on above: Order Comment: Order Added by Discern Expert. Performed By: #### 2 823244 ####KADEN [address] [place] [address] Lymphocytes/100 leukocytes 13.1 % Low 20.0-55.0 [facility] Comment on above: Order Comment: Order Added by Discern Expert. Performed By: #### 2 634274 ####KADEN [address] [place] [address] [place] Absolute 0.4 E3/mcL Normal 0.0-0.7 [facility] Comment on above: Order Comment: Order Added by Discern Expert. Performed By: #### 2 195615 ####KADNE [address] [place] [address] Monocytes/100 leukocytes 4.3 % Normal 0.0-10.0 [facility] Comment on above: Order Comment: Order Added by Discern Expert. Performed By: #### 2 339308 ####KADEN [address] [place] [address] Neutro Absolute 8.4 E3/mcL High 1.4-6.5 [facility] Comment on above: Order Comment: Order Added by Discern Expert. Performed By: #### 2 918469 ####KADEN [address] [place] [address] Neutro Auto 81.7 % High 37.0-75.0 [facility] Comment on above: Order Comment: Order Added by Discern Expert. Performed By: #### 2 746001 ####KADEN [address] [place] [address] CBC w/ Auto Diffon 8 Erythrocyte distribution width Auto Ratio (RBC) 13.1 % Normal 11.5-14.5 [facility] Comment on above: Performed By: #### 2 637601 ####KADEN [address] [place] [address] Erythrocytes (RBC) 3.90 E6/mcL Normal 3.90-5.[address] [facility] Comment on above: Performed By: #### 2 290862 ####KADEN [address] [place] [address] Hematocrit (HCT) 34.7 % Low 36.0-48.0 [facility] Comment on above: Performed By: #### 2 550116 ####KADEN [address] [place] [address] Hemoglobin mass conc (Bld) 11.8 g/dL Low 12.0-16.0 [facility] Comment on above: Performed By: #### 2 484128 ####KADEN [address] [place] [address] MCH 30.3 pg Normal 27.0-31.0 [facility] Comment on above: Performed By: #### 2 931784 ####KADEN [address] [place] [address] MCHC mass conc (RBC) 34.2 g/dL Normal 33.0-37.0 [facility] Comment on above: Performed By: #### 2 845947 ####KADEN [address] [place] [address] MCV 88.8 fL Normal 78.0-100.0 [facility] Comment on above: Performed By: #### 2 915843 ####KADEN [address] [place] [address] Platelet mean volume (PMV) 7.3 fL Low 7.4-11.0 [facility] Comment on above: Performed By: #### 2 042204 ####KADEN [address] [place] [address] Platelets 218 E3/mcL Normal 130-400 [facility] Comment on above: Performed By: #### 2 488792 ####KADEN [address] [place] [address] WBC (Leukocytes) 10.2 E3/mcL Normal 3.6-11.0 [facility] Comment on above: Performed By: #### 2 199046 ####KADEN [address] [place] [address] Gest Scr Glu 1 Hron 09-04-19 18 Glucose mass conc 113 mg/dL Normal 70-140 [facility] Comment on above: Performed By: #### 2 348923 ####KADEN [address] [place] [address] FISH Probeon 08-13-2017 Protein mass conc SEE BELOW Normal [facility] Comment on above: Result Comment: SPEC IMEN: BLOOD - [id number] INFORMATION:TEST: FISH Analysis of the DiGeorge/VCFS Region [...] Metaphase images: 2The Vysis LSI DARREN Spectrum [place]field Probe contains the DARREN gene (3'non-coding region of TUPLE1, Q83U817, and [id number]. The Vysis LSI ARSAspectrum Green Probe includes [...] performance characteristics determinedby the Cytogenetics Laboratory of [facility]. It hasnot been cleared or [...] Med Barbara [phone]:[id number]. BIGG GARCIA, PH.D., [facility], [facility] 08/16/2017 Performed By: #### F MARIA ####[facility] [address] [phone] Progress Noteon 08-13-2017 Product Ambassador Authentication Interface Message Text Met with patient [...] findingsWork History: unemployed. Information on [facility] services given.Consent to share information with FTC team, OB and supervisor roller printing signed. Pt plans to deliver in [place] with [place] [facility]. Currently with Dr. Shekhar Dyson.Nanotechnology Engineering Technician is undecided. [facility] list provided and discussed importance ofselection prior [...] was spent counseling and coordinating care. Normal [facility] Product Ambassador Authentication Interface Message Text Thank you for [...] size. There was a patent foramen ovale, xtezrlvns-uz-meal shunt.Tricuspid valve:Normal tricuspid valve. There was normal [...] 60 minutes spent on the encounter. Normal [facility] Progress Noteon 07-18-2017 Product Ambassador Authentication Interface Message Text [facility] MATERNAL- MEDICINE CONSULTReferring/Requestin g Provider: Christian [...] no palpitations. She usually doesnot see a gasket inspector, but did have a recent echo due [...] Stroke Maternal Grandmother Heart Disease Maternal Grandmother MD Clotting Disorder Maternal Grandfather Miscarriages / Stillbirths Paternal Grandmother Stroke Paternal Grandmother Heart Disease Paternal Grandmother MIMEDS:Outpatient Prescriptions Marked as Taking for the 07/18/17 encounter (OfficeVisit) with Clara Jama, TIANedication Sig Dispense Refill Vit-Fe Fumarate-FA ( VITAMIN [...] 07/18/2017 Consider evaluation with director of social work to assess for any needs duringpregnancy or after. Will have genetic consult with [facility] evaluation. cardiac anomaly complicating , antepartum 07/18/2017 Dilated aortic root seen on ultrasound along with large umbilical cordvarix, dolichocephaly DW Dr. Zazueta, verbal order to refer to [facility] Will be scheduled with pediatric cardiology. Also, patient and family members have a history of learning disabilities,including an individual learning plan in school. She will talk to her familymembers and bring as much information as is available for her genetics consult.She has transportation to [place] and is [facility]The total patient time of the visit was 30 minutes, of which was greater than50% of the time was spent counseling and coordinating care. Normal [facility] IGP W/hpv Rfx [id number] 05-07 Diagnosis: See Ref Lab Report Normal [facility] Comment on above: Order Comment: Thin Prep. Performed By: #### 2 [id number] ####KADEN [address] [place] [address] C Urineon 05-03-2017 C Urine Final Report: Normal skin alonso isolated Normal [facility] Comment on above: Performed By: #### 2 704700 ####KADEN [address] [place] [address] RPRon 05-03-2017 RPR Ql Non-Reactive Normal Non-Reacti ve [facility] Comment on above: Performed By: #### 2 916570 ####KADEN [address] [place] [address] Hep Bs Agon 05-02-2017 BSA (Body Surface Area) Negative Normal Negative [facility] Comment on above: Result Comment: Perf ormed At: [facility] [address] [id number] Vincent PhD Ph:[phone] Performed By: #### 2 225989 ####KADEN [address] [place] [address] ABO/Rh Echoon 05-01-2017 ABO/Rh E Interp... Positive Normal [facility] Comment on above: Performed By: #### 2 629429 ####KADEN [address] [place] [address] Antibody Screen Cap...on Screen Interp... Negative Normal [facility] Comment on above: Performed By: #### 2 858299 ####KADEN [address] [place] [address] Auto Diffon 05-01-2017 Basophils Auto #/vol (Bld) 0.0 E3/mcL Normal 0.0-0.2 [facility] Comment on above: Order Comment: Order Added by Discern Expert. Performed By: #### 2 931361 ####KADEN Urinalysis Manual [address] [place] [id number] Basophils/100 WBC Auto (Bld) 0.4 % Normal 0.0-2.0 [facility] Comment on above: Order Comment: Order Added by Discern Expert. Performed By: #### 2 730346 ####KADEN Urinalysis Manual [address] [place] [id number] Eos Absolute 0.1 E3/mcL Normal 0.0-0.7 [facility] Comment on above: Order Comment: Order Added by Discern Expert. Performed By: #### 2 085033 ####KADEN Urinalysis Manual [address] [place] [address] Eosinophils/100 leukocytes 0.7 % Normal 0.0-11.0 [facility] Comment on above: Order Comment: Order Added by Discern Expert. Performed By: #### 2 977649 ####KADEN Urinalysis Manual [address] [place] [address] Lymphocytes 1.8 E3/mcL Normal 1.2-3.4 [facility] Comment on above: Order Comment: Order Added by Discern Expert. Performed By: #### 2 828854 ####KADEN Urinalysis Manual [address] [place] [address] Lymphocytes/100 leukocytes 17.1 % Low 20.0-55.0 [facility] Comment on above: Order Comment: Order Added by Discern Expert. Performed By: #### 2 962177 ####KADEN Urinalysis Manual [address] [place] [address] [place] Absolute 0.5 E3/mcL Normal 0.0-0.7 [facility] Comment on above: Order Comment: Order Added by Discern Expert. Performed By: #### 2 509491 ####KADEN Urinalysis Manual [address] [place] [address] Monocytes/100 leukocytes 5.0 % Normal 0.0-10.0 [facility] Comment on above: Order Comment: Order Added by Discern Expert. Performed By: #### 2 356196 ####KADEN Urinalysis Manual [address] [place] [address] Neutro Absolute 8.0 E3/mcL High 1.4-6.5 [facility] Comment on above: Order Comment: Order Added by Discern Expert. Performed By: #### 2 640627 ####KADEN Urinalysis Manual [address] [place] [address] Neutro Auto 76.8 % High 37.0-75.0 [facility] Comment on above: Order Comment: Order Added by Discern Expert. Performed By: #### 2 414472 ####KADEN Urinalysis Manual [address] [place] [address] CBC w/ Auto Diffon Erythrocyte distribution width Auto Ratio (RBC) 15.2 % High 11.5-14.5 [facility] Comment on above: Performed By: #### 2 372489 ####KADEN Urinalysis Manual [address] [place] [address] Erythrocytes (RBC) 4.90 E6/mcL Normal 3.90-5.[address] [facility] Comment on above: Performed By: #### 2 880114 ####KADEN Urinalysis Manual [address] [place] [address] Hematocrit (HCT) 41.1 % Normal 36.0-48.0 [facility] Comment on above: Performed By: #### 2 346063 ####KADEN Urinalysis Manual [address] [place] [address] Hemoglobin mass conc (Bld) 13.5 g/dL Normal 12.0-16.0 [facility] Comment on above: Performed By: #### 2 300562 ####KADEN Urinalysis Manual [address] [place] [address] MCH 27.5 pg Normal 27.0-31.0 [facility] Comment on above: Performed By: #### 2 416398 ####KADEN Urinalysis Manual [address] [place] [address] MCHC mass conc (RBC) 32.8 g/dL Low 33.0-37.0 [facility] Comment on above: Performed By: #### 2 500495 ####KADEN Urinalysis Manual [address] [place] [address] MCV 83.9 fL Normal 78.0-100.0 [facility] Comment on above: Performed By: #### 2 710761 ####KADEN Urinalysis Manual [address] [place] [address] Platelet mean volume (PMV) 8.0 fL Normal 7.4-11.0 [facility] Comment on above: Performed By: #### 2 793791 ####KADEN Urinalysis Manual [address] [place] [address] Platelets 246 E3/mcL Normal 130-400 [facility] Comment on above: Performed By: #### 2 363769 ####[place] [address] WBC (Leukocytes) 10.4 E3/mcL Normal 3.6-11.0 [facility] Comment on above: Performed By: #### 2 [id number] ####[place] [address] Chlamydia GC by PCRon 2016 Chlamydia by PCR. Not Detected Normal Not Detected [facility] Comment on above: Result Comment: Xper t CT/NG Assay performance has not been evaluated in patients less than 14 years of age. Performed By: #### 2 762916 ####KADEN CozUelw6057 [place] [address] Gonorrhoeae by PCR Not Detected Normal Not Detected [facility] Comment on above: Result Comment: Xper t CT/NG Assay performance has not been evaluated in patients less than 14 years of age. Performed By: #### 2 076933 ####KADENMorelia BairdGxrIwlw3605 [place] [address] HIV-1/2 Ag/Abon 05-01-2017 HIV-1/2 Ag/Ab Non-Reactive Normal Non-Reacti ve [facility] Comment on above: Performed By: #### 2 324344 ####[place] [address] Rubella IgG Lvlon 05-01-2017 Rubella IgG Lvl 50.8 (POS) Normal [facility] Comment on above: Result Comment: <10I U/ml NON REACTIVE: NOT IQMIQC40-76 IU/ml RUBELLA SPECIFIC AB PRESENT, EVALUATEFURTHER TO DETERMINE IMMUNE STATUS >15 IU/ml REACTIVE, IMMUNE Performed By: #### 2 408383 ####KADEN XuaXruj1217 [place] [address] Auto Diffon 04-22-2017 Basophils Auto #/vol (Bld) 0.1 E3/mcL Normal 0.0-0.2 [facility] Comment on above: Order Comment: Order Added by Discern Expert. Performed By: #### 2 982899 ####KADEN Urinalysis Manual [address] [place] [address] Basophils/100 WBC Auto (Bld) 0.6 % Normal 0.0-2.0 [facility] Comment on above: Order Comment: Order Added by Discern Expert. Performed By: #### 2 403521 ####KADEN Urinalysis Manual [address] [place] [address] Eos Absolute 0.0 E3/mcL Normal 0.0-0.7 [facility] Comment on above: Order Comment: Order Added by Discern Expert. Performed By: #### 2 740621 ####KADEN Urinalysis Manual [address] [address] Eosinophils/100 leukocytes 0.2 % Normal 0.0-11.0 [facility] Comment on above: Order Comment: Order Added by Discern Expert. Performed By: #### 2 129215 ####KADEN Urinalysis Manual [address]qav[address] [place] [address] Lymphocytes 1.5 E3/mcL Normal 1.2-3.4 [facility] Comment on above: Order Comment: Order Added by Discern Expert. Performed By: #### 2 587822 ####KADEN Urinalysis Manual [address] [address] Lymphocytes/100 leukocytes 10.8 % Low 20.0-55.0 [facility] Comment on above: Order Comment: Order Added by Discern Expert. Performed By: #### 2 248777 ####KADEN Urinalysis Manual Ot[address]cjwj[address] [place] [address] [place]ree Absolute 0.6 E3/mcL Normal 0.0-0.7 [facility] Comment on above: Order Comment: Order Added by Discern Expert. Performed By: #### 2 402871 ####KADEN Urinalysis Manual Suecrtdlsg[address] [place] [address] Monocytes/100 leukocytes 4.4 % Normal 0.0-10.0 [facility] Comment on above: Order Comment: Order Added by Discern Expert. Performed By: #### 2 751036 ####KADEN Urinalysis Manual Svckwjkczc1153 [place] [address] Neutro Absolute 11.3 E3/mcL High 1.4-6.5 [facility] Comment on above: Order Comment: Order Added by Discern Expert. Performed By: #### 2 951283 ####KADEN Urinalysis Manual [address] [place] [address] Neutro Auto 84.0 % High 37.0-75.0 [facility] Comment on above: Order Comment: Order Added by Discern Expert. Performed By: #### 2 171001 ####KADEN Urinalysis Manual [address]izp[address] [place] [address] BMPon 04-22-2017 BUN/Creatinine Ratio Unable to calc Normal 5.4-30.0 [facility] Comment on above: Performed By: #### 2 227632 ####KADEN Urinalysis Manual Vftxifzkpj[address] [place] [address] Creatinine mg/dL Low 0.6-1.3 [facility] Comment on above: Performed By: #### 2 270200 ####KADEN Urinalysis Manual Tiguvjkard[address] [place] [address] Urea nitrogen 7 mg/dL Normal 7-18 [facility] Comment on above: Performed By: #### 2 056576 ####KADEN Urinalysis Manual Ssj[address]wrtah[address] [place] [address] Calcium 9.6 mg/dL Normal 8.4-10.2 [facility] Comment on above: Performed By: #### 2 319594 ####KADEN Urinalysis Manual Iwrpenqfda[address] [place] [address] Chloride 103 mmol/L Normal 98-107 [facility] Comment on above: Performed By: #### 2 341351 ####KADEN Urinalysis Manual Ldmjweqwcq[address] [place] [address] CO2 21.7 mmol/L Low 24.0-30.0 [facility] Comment on above: Performed By: #### 2 761656 ####KADEN Urinalysis Manual Bgcpaccamo[address] [place] [address] Glucose mass conc 89 mg/dL Normal 70-99 [facility] Comment on above: Performed By: #### 2 896862 ####KADEN Urinalysis Manual Gmudrnjrsa3037 [place] [address] Potassium molar conc 3.6 mmol/L Normal 3.5-5.1 [facility] Comment on above: Performed By: #### 2 919345 ####KADEN Urinalysis Manual Rokullqaoa[address] [place] [address] Sodium 136 mmol/L Normal 136-145 [facility] Comment on above: Performed By: #### 2 811744 ####KADEN Urinalysis Manual Gmyizyjxtl[address] [place] [address] CBC w/ Auto Diffon 7 Erythrocyte distribution width Auto Ratio (RBC) 14.8 % High 11.5-14.5 [facility] Comment on above: Performed By: #### 2 853663 ####KADEN Urinalysis Manual Nehxhhbtou[address] [place] [address] Erythrocytes (RBC) 4.96 E6/mcL Normal 3.90-5.[address] [facility] Comment on above: Performed By: #### 2 448147 ####KADEN Urinalysis Manual Yattpuhkaf[address] [place] [address] Hematocrit (HCT) 40.9 % Normal 36.0-48.0 [facility] Comment on above: Performed By: #### 2 599336 ####KADEN Urinalysis Manual Akcmpngamu[address] [place] [address] Hemoglobin mass conc (Bld) 13.5 g/dL Normal 12.0-16.0 [facility] Comment on above: Performed By: #### 2 916726 ####KADEN Urinalysis Manual Bswlyxlbro25[address] [place] [address] MCH 27.2 pg Normal 27.0-31.0 [facility] Comment on above: Performed By: #### 2 788281 ####KADEN Urinalysis Manual Pnsgnssyes94[address] [place] [address] MCHC mass conc (RBC) 33.0 g/dL Normal 33.0-37.0 [facility] Comment on above: Performed By: #### 2 420462 ####KADEN Urinalysis Manual Idpegdvjgo8426 [place] [address] MCV 82.4 fL Normal 78.0-100.0 [facility] Comment on above: Performed By: #### 2 849942 ####KADEN Urinalysis Manual Jjgnehglon[address] [place] [address] Platelet mean volume (PMV) 8.0 fL Normal 7.4-11.0 [facility] Comment on above: Performed By: #### 2 475018 ####KADEN Urinalysis Manual Thewcuhdtu[address] [place] [address] Platelets 237 E3/mcL Normal 130-400 [facility] Comment on above: Performed By: #### 2 264940 ####KADEN Urinalysis Manual Fvmokyveib[address] [place], [place] [address] WBC (Leukocytes) 13.5 E3/mcL High 3.6-11.0 [facility] Comment on above: Performed By: #### 2 179040 ####KADEN Urinalysis Manual Pvgrywppae[address] [place] [address] UA Completeon 04-22-2017 UA Blood Negative Normal Negative [facility] Comment on above: Performed By: #### 2 858910 ####KADEN Urinalysis Manual Hvxovyropr[address] [place] [address] UA Ascorbic Acid 40 mg/dL High <=19 [facility] Comment on above: Performed By: #### 2 418287 ####KADEN Urinalysis Manual Suvrftehei[address] [place] [address] UA Bacteria 3+ /HPF Abnormal None [facility] Comment on above: Performed By: #### 2 808511 ####KADEN Urinalysis Manual Zvlxynueil[address] [place] [address] UA Clarity SltCloudy Abnormal Clear [facility] Comment on above: Performed By: #### 2 229917 ####KADEN Urinalysis Manual Abbkqdcewx[address] [place] [address] UA Leuk Est Negative Normal Negative [facility] Comment on above: Performed By: #### 2 238092 ####KADEN Urinalysis Manual Xibbaurdqz9208 [place] [address] UA Mucous Few Abnormal Trace [facility] Comment on above: Performed By: #### 2 629963 ####KADEN Urinalysis Manual Kbmkeghueg[address] [place] [address] UA Nitrite Negative Normal Negative [facility] Comment on above: Performed By: #### 2 770044 ####KADEN Urinalysis Manual [address]ax[address]dwblj[address] [place] [address] UA pH 8.0 Normal 4.6-8.0 [facility] Comment on above: Performed By: #### 2 991755 ####KADEN Urinalysis Manual Wyqokajhai[address] [place] [address] UA Protein Negative Normal Negative [facility] Comment on above: Performed By: #### 2 061747 ####KADEN Urinalysis Manual Y[address]ryvzcd[address] [place] [address] UA Spec Grav 1.012 Normal 1.003-1.03 0 [facility] Comment on above: Performed By: #### 2 788904 ####KADEN Urinalysis Manual Rxacgbrsue[address] [place] [address] UA Squam Epithelial 0-5 Normal 0-[address] [facility] Comment on above: Performed By: #### 2 801287 ####KADEN Urinalysis Manual Goxdwqyznk[address] [place] [address] UA Urobilinogen Negative Normal [facility] Comment on above: Performed By: #### 2 101459 ####KADEN Urinalysis Manual Gjtzctezfv[address] [place] [address] UA WBC 0-5 Normal 0-5 [facility] Comment on above: Performed By: #### 2 302993 ####KADEN Urinalysis Manual Kcmaearihv[address] [place] [address] Urine, color Yellow Normal Yellow [facility] Comment on above: Performed By: #### 2 775217 ####KADEN Urinalysis Manual Humvefegkl[address] [place] [address] Urine, glucose Negative Normal Negative [facility] Comment on above: Performed By: #### 2 220868 ####KADEN Urinalysis Manual Vtg[address]hlalmq6969 [place] [address] Urine, ketones presence 1+ Abnormal Negative [facility] Comment on above: Performed By: #### 2 131027 ####KADEN Urinalysis Manual Ozkpnujnya[address] [place] [address] Urine, urobilinogen Negative Normal Negative [facility] Comment on above: Performed By: #### 2 788982 ####KADEN Urinalysis Manual Ouqurpsazo[address] [place] [address] eGFRon 04-22-2017 eGFR AA >60 Normal [facility] Comment on above: Order Comment: Order added by Discern Expert. Performed By: #### 2 621449 ####KADEN Urinalysis Manual Domwvlkiqn[address] [place] [address] eGFR (non-black) mL/min/{1.73_m2} Normal [facility] Comment on above: Order Comment: Order added by Discern Expert. Performed By: #### 2 724660 ####KADEN Urinalysis Manual Tuoxdifjat[address] [place] [address] C Urineon 04-20-2017 C Urine Final Report: Normal skin alonso isolated Normal [facility] Comment on above: Performed By: #### 2 397311 ####KADEN Urinalysis Manual [address]ktawextvt[address] [place] [address] BMPon 04-18-2017 BUN/Creatinine Ratio 15.0 ratio Normal 5.4-30.0 [facility] Comment on above: Performed By: #### 2 210175 ####KADEN EqmMslq8815 [place] [address] Creatinine 0.6 mg/dL Normal 0.6-1.3 [facility] Comment on above: Performed By: #### 2 097488 ####KADEN KkdTvzf3209 [place] [address] Urea nitrogen 9 mg/dL Normal 7-18 [facility] Comment on above: Performed By: #### 2 200202 ####KADEN IqhBvyi5437 [place] [address] Calcium 9.6 mg/dL Normal 8.4-10.2 [facility] Comment on above: Performed By: #### 2 884854 ####KADENMorelia BairdUyyYobv0969 [place] [address] Chloride 102 mmol/L Normal 98-107 [facility] Comment on above: Performed By: #### 2 821707 ####KADENMorelia BairdWwkSdne2363 [place] [address] CO2 23.3 mmol/L Low 24.0-30.0 [facility] Comment on above: Performed By: #### 2 850405 ####KADENMorelia BairdJmiVjbw0240 [place] [address] Glucose mass conc 93 mg/dL Normal 70-99 [facility] Comment on above: Performed By: #### 2 630243 ####KADENMorelia BairdCjvCjfl2454 [place] [address] Potassium molar conc 3.5 mmol/L Normal 3.5-5.1 [facility] Comment on above: Performed By: #### 2 131274 ####KADENMorelia BairdMcdXbmh7026 [place] [address] Sodium 136 mmol/L Normal 136-145 [facility] Comment on above: Performed By: #### 2 151211 ####KADENMorelia BairdWhwOtya5969 [place] [id number] UA Completeon 04-18-2017 UA Blood Negative Normal Negative [facility] Comment on above: Performed By: #### 2 423414 ####KADEN Urinalysis Manual Ygutujroyq7840 [place] [address] UA Amorph Chastity 2+ /HPF Abnormal None [facility] Comment on above: Performed By: #### 2 874858 ####KADEN Urinalysis Manual Ieqvqngtbw9350 [place] [id number] UA Ascorbic Acid 40 mg/dL High <=19 [facility] Comment on above: Performed By: #### 2 731753 ####KADEN Urinalysis Manual Anaffkcarf3[address] [place] [id number] UA Clarity Cloudy Abnormal Clear [facility] Comment on above: Performed By: #### 2 827678 ####KADEN Urinalysis Manual Sfnzwrjjgp5733 [place] [address] UA Leuk Est Negative Normal Negative [facility] Comment on above: Performed By: #### 2 755872 ####KADEN Urinalysis Manual Ymplvpmzwz8130 [place] [address] UA Mucous Trace Abnormal Trace [facility] Comment on above: Performed By: #### 2 050263 ####KADEN Urinalysis Manual Wejmupckwj[address] [place] [address] UA Nitrite Negative Normal Negative [facility] Comment on above: Performed By: #### 2 176492 ####KADEN Urinalysis Manual [address]fehzqxx[address] [place] [address] UA pH 7.0 Normal 4.6-8.0 [facility] Comment on above: Performed By: #### 2 267800 ####KADEN Urinalysis Manual Uiqitoxxdk[address] [place] [address] UA Protein Negative Normal Negative [facility] Comment on above: Performed By: #### 2 863603 ####KADEN Urinalysis Manual Efyuckrjwe[address] [place] [address] UA Spec Grav 1.018 Normal 1.003-1.03 0 [facility] Comment on above: Performed By: #### 2 082882 ####KADEN Urinalysis Manual Jigueftniy[address] [place] [address] UA Squam Epithelial 0-5 Normal 0-[address] [facility] Comment on above: Performed By: #### 2 321275 ####KADEN Urinalysis Manual Lrkjkjatzm[address] [place] [address] UA Urobilinogen Negative Normal [facility] Comment on above: Performed By: #### 2 412325 ####KADEN Urinalysis Manual Ynqbyjtttd[address] [place] [address] Urine, color Yellow Normal Yellow [facility] Comment on above: Performed By: #### 2 958675 ####KADEN Urinalysis Manual Qkcngirfst[address] [place] [address] Urine, glucose Negative Normal Negative [facility] Comment on above: Performed By: #### 2 250523 ####KADEN Urinalysis Manual Mzwneaeiyl0[address] [place] [address] Urine, ketones presence 2+ Abnormal Negative [facility] Comment on above: Performed By: #### 2 726915 ####KADEN Urinalysis Manual Knwxnvgwrn8597 [place] [address] Urine, urobilinogen Negative Normal Negative [facility] Comment on above: Performed By: #### 2 857267 ####KADEN Urinalysis Manual Ltlaoiuwvv2420 [place] [phone] eGFRon 04-18-2017 eGFR (non-black) mL/min/{1.73_m2} Normal [facility] Comment on above: Order Comment: Order added by Discern Expert. Performed By: #### 1 3044262 ####KADENMorelia BairdVxnFiso6933 [place] [address] eGFR AA >60 Normal [facility] Comment on above: Order Comment: Order added by Discern Expert. Performed By: #### 1 7302021 ####KADENMorelia BairdEepLers3885 [place] [address] Auto Diffon 04-11-2017 Basophils Auto #/vol (Bld) 0.1 E3/mcL Normal 0.0-0.2 [facility] Comment on above: Order Comment: Order Added by Discern Expert. Performed By: #### 2 451058 ####KADEN BairdXmoRjbu5592 [place] [phone] Basophils/100 WBC Auto (Bld) 0.7 % Normal 0.0-2.0 [facility] Comment on above: Order Comment: Order Added by Discern Expert. Performed By: #### 2 347547 ####KADENMorelia BairdXvsYeft4240 [place] [phone] Eos Absolute 0.0 E3/mcL Normal 0.0-0.7 [facility] Comment on above: Order Comment: Order Added by Discern Expert. Performed By: #### 2 984750 ####KADEN BairdRaeMbqu2467 [place] [phone] Eosinophils/100 leukocytes 0.1 % Normal 0.0-11.0 [facility] Comment on above: Order Comment: Order Added by Discern Expert. Performed By: #### 2 439943 ####KADEN Luceroo[address]25 [place] [address] Lymphocytes 1.5 E3/mcL Normal 1.2-3.4 [facility] Comment on above: Order Comment: Order Added by Discern Expert. Performed By: #### 2 671501 ####KADEN [address]25 [place] [address] Lymphocytes/100 leukocytes 17.2 % Low 20.0-55.0 [facility] Comment on above: Order Comment: Order Added by Discern Expert. Performed By: #### 2 445274 ####KADEN BairdCfhKuhw4060 [place] [address] [place] Absolute 0.6 E3/mcL Normal 0.0-0.7 [facility] Comment on above: Order Comment: Order Added by Discern Expert. Performed By: #### 2 514420 ####KADEN [address]25 [place] [address] Monocytes/100 leukocytes 6.6 % Normal 0.0-10.0 [facility] Comment on above: Order Comment: Order Added by Discern Expert. Performed By: #### 2 644840 ####KADEN BairdGotCxka4749 [place] [address] Neutro Absolute 6.7 E3/mcL High 1.4-6.5 [facility] Comment on above: Order Comment: Order Added by Discern Expert. Performed By: #### 2 437109 ####KADEN [address] [place] [address] Neutro Auto 75.4 % High 37.0-75.0 [facility] Comment on above: Order Comment: Order Added by Discern Expert. Performed By: #### 2 388680 ####KADEN BairdYyqAxlt3756 [place] [address] BMPon 04-11-2017 BUN/Creatinine Ratio 12.9 ratio Normal 5.4-30.0 [facility] Comment on above: Performed By: #### 2 491935 ####KADEN BairdWtwNzjc4395 [place] [address] Creatinine 0.7 mg/dL Normal 0.6-1.3 [facility] Comment on above: Performed By: #### 2 185933 ####KADEN HtkHhjy0158 [place] [address] Urea nitrogen 9 mg/dL Normal 7-18 [facility] Comment on above: Performed By: #### 2 694443 ####KADEN HxwOqgv3477 [place] [address] Calcium 9.5 mg/dL Normal 8.4-10.2 [facility] Comment on above: Performed By: #### 2 915226 ####KADEN EdhBmzp9606 [place] [address] Chloride 105 mmol/L Normal 98-107 [facility] Comment on above: Performed By: #### 2 988424 ####KADEN WinYqse9250 [place] [address] CO2 22.5 mmol/L Low 24.0-30.0 [facility] Comment on above: Performed By: #### 2 252151 ####KADEN JubRmwc0578 [place] [address] Glucose mass conc 92 mg/dL Normal 70-99 [facility] Comment on above: Performed By: #### 2 542942 ####KADEN WfoCtar1229 [place] [address] Potassium molar conc 3.6 mmol/L Normal 3.5-5.1 [facility] Comment on above: Performed By: #### 2 002660 ####KADEN PhkXefm7816 [place] [address] Sodium 137 mmol/L Normal 136-145 [facility] Comment on above: Performed By: #### 2 642076 ####KADEN AskQrqu7738 [place] [address] BhCG Quanton 04-11-2017 Beta hCG Qnt 8564.0 mIU/m Normal [facility] Comment on above: Result Comment: FEMA LE (NON-) & MALE <3 BORDERLINE 3 - 5 SUGGEST REPEAT TESTING FEMALE () 1 D - 1 WK 5 - 50 1 - 2 WK 50 - 500 2 - 3 WK 100 - 5000 3 - 4 WK 500 - 10746 4 - 5 WK 1000 - 91748 5 - 6 WK 57536 - 154404 6 - 8 W[place] 74248 - 465786 2 - 3 [place] [address] - 815537 Performed By: #### 2 978031 ####KADEN BairdBdmNqxg5174 [place] [address] CBC w/ Auto Diffon Erythrocyte distribution width Auto Ratio (RBC) 13.9 % Normal 11.5-14.5 [facility] Comment on above: Performed By: #### 2 887594 ####KADEN BairdNhjViig3445 [place] [address] Erythrocytes (RBC) 4.63 E6/mcL Normal 3.90-5.[address] [facility] Comment on above: Performed By: #### 2 512976 ####KADEN BairdAprQric6594 [place] [phone] Hematocrit (HCT) 38.2 % Normal 36.0-48.0 [facility] Comment on above: Performed By: #### 2 887444 ####KADEN BairdWgoXazm1132 [place] [phone] Hemoglobin mass conc (Bld) 12.6 g/dL Normal 12.0-16.0 [facility] Comment on above: Performed By: #### 2 233011 ####KADEN BairdEdtMgnk5932 [place] [address] MCH 27.2 pg Normal 27.0-31.0 [facility] Comment on above: Performed By: #### 2 140163 ####KADEN BairdSjyFgtx6432 [place] [address] MCHC mass conc (RBC) 33.0 g/dL Normal 33.0-37.0 [facility] Comment on above: Performed By: #### 2 097844 ####KADEN BairdKtpDyke2461 [place] [address] MCV 82.6 fL Normal 78.0-100.0 [facility] Comment on above: Performed By: #### 2 923812 ####KADEN HqnLbmy6328 [place] [address] Platelet mean volume (PMV) 8.0 fL Normal 7.4-11.0 [facility] Comment on above: Performed By: #### 2 241901 ####KADEN HsgUzzf6172 [place] [address] Platelets 233 E3/mcL Normal 130-400 [facility] Comment on above: Performed By: #### 2 798293 ####KADEN BairdVfqRfav5768 [place] [address] WBC (Leukocytes) 9.0 E3/mcL Normal 3.6-11.0 [facility] Comment on above: Performed By: #### 2 011350 ####KADEN SunCgcl7758 [place] [phone] UA Completeon 04-11-2017 UA Blood Negative Normal Negative [facility] Comment on above: Result Comment: High concentration of Ascorbic Acid present in urine. This may cause False Negative Occ Blood. Review microscopic results and patient's clinical symptoms. Performed By: #### 8 9503917 ####KADEN Urinalysis Automated E[address]qwqaqrze[address] [place] [address] UA Amorph Chastity 1+ /HPF Abnormal None [facility] Comment on above: Performed By: #### 8 3908369 ####KADEN Urinalysis Automated Lipwwnzyyb1759 [place] [address] UA Ascorbic Acid 40 mg/dL High <=19 [facility] Comment on above: Performed By: #### 8 [id number] ####KADEN Urinalysis Automated R[address]vddwoc[address] [place] [address] UA Bacteria Trace Abnormal None [facility] Comment on above: Performed By: #### 8 2003474 ####KADEN Urinalysis Automated Gvxyoqorqj5033 [place] [address] UA Clarity Cloudy Abnormal Clear [facility] Comment on above: Performed By: #### 8 8112245 ####KADEN Urinalysis Automated Ujofgikjik2189 [place] [phone] UA Leuk Est Negative Normal Negative [facility] Comment on above: Performed By: #### 8 5032047 ####KADEN Urinalysis Automated Hrbwmtbpdu4182 [place] [address] UA Mucous Few Abnormal Trace [facility] Comment on above: Performed By: #### 8 8329428 ####KADEN Urinalysis Automated Jygoybtjeo3114 [place] [address] UA Nitrite Negative Normal Negative [facility] Comment on above: Performed By: #### 8 7764462 ####KADEN Urinalysis Automated Vtjtbrnyoy6239 [place] [address] UA pH 7.0 Normal 4.6-8.0 [facility] Comment on above: Performed By: #### 8 [id number] ####KADEN Urinalysis Automated Cfjlanqhme6797 [place] [address] UA Protein Negative Normal Negative [facility] Comment on above: Performed By: #### 8 [id number] ####KADEN Urinalysis Automated Caemtnmjph1457 [place] [address] UA Spec Grav 1.025 Normal 1.003-1.03 0 [facility] Comment on above: Performed By: #### 8 [id number] ####KADEN Urinalysis Automated [address] [place] [address] UA Squam Epithelial 5-10 Abnormal 0-[address] [facility] Comment on above: Performed By: #### 8 [id number] ####KADEN Urinalysis Automated [address] [place] [address] UA Urobilinogen 2.0 mg/dL Abnormal [facility] Comment on above: Performed By: #### 8 [id number] ####KADEN Urinalysis Automated [address] [place] [address] Urine, color Yellow Normal Yellow [facility] Comment on above: Performed By: #### 8 [id number] ####KADEN Urinalysis Automated Gxqycbocva2720 [place] [address] Urine, erythrocytes 0-3 Normal 0-[address] [facility] Comment on above: Performed By: #### 8 [id number] ####KADEN Urinalysis Automated [address]mws8537 [place] [address] Urine, glucose Negative Normal Negative [facility] Comment on above: Performed By: #### 8 [id number] ####KADEN Urinalysis Automated [address] [place] [address] Urine, ketones presence 2+ Abnormal Negative [facility] Comment on above: Performed By: #### 8 [id number] ####KADEN Urinalysis Automated Dsgmfpyydd1524 [place] [address] Urine, urobilinogen Negative Normal Negative [facility] Comment on above: Performed By: #### 8 [id number] ####KADEN Urinalysis Automated [address] [place] [address] eGFRon 04-11-2017 eGFR (non-black) mL/min/{1.73_m2} Normal [facility] Comment on above: Order Comment: Order added by Discern Expert. Performed By: #### 1 [id number] ####KADEN AeqLwmn4948 [place] [address] eGFR AA >60 Normal [facility] Comment on above: Order Comment: Order added by Discern Expert. Performed By: #### 1 [id number] ####KADEN DwuOdsx1570 [place] [address] U BhCG Qlton 03-20-2017 HCG.beta subunit Qn Negative Normal Neg [facility] Comment on above: Performed By: #### 2 [id number] ####KADEN Urinalysis Manual [address] [place] [address] UA Completeon 03-20-2017 UA Blood Negative Normal Negative [facility] Comment on above: Performed By: #### 8 [id number] ####KADEN Urinalysis Automated Qx[address] [place] [address] UA Amorph Chastity 1+ /HPF Abnormal None [facility] Comment on above: Performed By: #### 8 [id number] ####KADEN Urinalysis Automated Whzwmnzhun5601 [place] [address] UA Bacteria 2+ /HPF Abnormal None [facility] Comment on above: Performed By: #### 8 [id number] ####KADEN Urinalysis Automated Lferjnnpew8596 [place] [address] UA Clarity Cloudy Abnormal Clear [facility] Comment on above: Performed By: #### 8 [id number] ####KADEN Urinalysis Automated [address] [place] [address] UA Leuk Est 1+ Abnormal Negative [facility] Comment on above: Performed By: #### 8 [id number] ####KADEN Urinalysis Automated R[address]shff6295 [place] [address] UA Mucous Occasional Abnormal Trace [facility] Comment on above: Performed By: #### 8 [id number] ####KADEN Urinalysis Automated Muxjymdfrv3814 [place] [address] UA Nitrite Negative Normal Negative [facility] Comment on above: Performed By: #### 8 [id number] ####KADEN Urinalysis Automated Touajsmpxp6994 [place] [address] UA pH 6.0 Normal 4.6-8.0 [facility] Comment on above: Performed By: #### 8 [id number] ####KADEN Urinalysis Automated Cruufqkrmd6018 [place] [address] UA Protein 1+ Abnormal Negative [facility] Comment on above: Performed By: #### 8 [id number] ####KADEN Urinalysis Automated [address] [place] [address] UA Spec Grav 1.019 Normal 1.003-1.03 0 [facility] Comment on above: Performed By: #### 8 [id number] ####KADEN Urinalysis Automated Ojwjtmrdjw4843 [place] [address] UA Squam Epithelial 5-10 Abnormal 0-[address] [facility] Comment on above: Performed By: #### 8 [id number] ####KADEN Urinalysis Automated Fpstojwwgz7763 [place] [address] UA Urobilinogen Negative Normal [facility] Comment on above: Performed By: #### 8 [id number] ####KADEN Urinalysis Automated Eueneyzemx2735 [place] [address] UA WBC >50 Abnormal 0-5 [facility] Comment on above: Performed By: #### 8 [id number] ####KADEN Urinalysis Automated Zwsuemyhgq8925 [place] [address] Urine, color Yellow Normal Yellow [facility] Comment on above: Performed By: #### 8 [id number] ####KADEN Urinalysis Automated Lypymbmmto3496 [place] [address] Urine, erythrocytes 5-10 Abnormal 0-[address] [facility] Comment on above: Performed By: #### 8 [id number] ####KADEN Urinalysis Automated Muqobwpscl4841 [place] [address] Urine, glucose Negative Normal Negative [facility] Comment on above: Performed By: #### 8 [id number] ####KADEN Urinalysis Automated Besxbutljw4907 [place] [address] Urine, ketones presence Negative Normal Negative [facility] Comment on above: Performed By: #### 8 [id number] ####KADEN Urinalysis Automated [address]xit0656 [place] [address] Urine, urobilinogen Negative Normal Negative [facility] Comment on above: Performed By: #### 8 [id number] ####KADEN Urinalysis Automated [address]smbpbggte8326 [place] [address] Vital Signs Date Time Vital Sign Value Performing Clinician Facility 10-26-2024 11:46-0400 Body mass index (BMI) [Ratio] 27.34 kg/m2 Cuong Diana DO Work Phone: [facility] 10-26-2024 11:46-0400 Body weight 76.84 kg Cuong Diana DO Work Phone: [facility] 10-26-2024 11:46-0400 Diastolic blood pressure 70 mm[Hg] Cuong Diana DO Work Phone: [facility] 10-26-2024 11:46-0400 Systolic blood pressure 120 mm[Hg] Cuong Diana DO Work Phone: [facility] 10-12-2024 09:30-0400 Body mass index (BMI) [Ratio] 27.16 kg/m2 Cuong Diana DO Work Phone: [facility] 10-12-2024 09:30-0400 Body weight 76.32 kg Cuong Diana DO Work Phone: [facility] 10-12-2024 09:30-0400 Diastolic blood pressure 78 mm[Hg] Cuong Diana DO Work Phone: [facility] 10-12-2024 09:30-0400 Systolic blood pressure 120 mm[Hg] Cuong Diana DO Work Phone: [facility] 09-28-2024 13:39-0400 Diastolic blood pressure 74 mm[Hg] Malachi Macdonald MD Work Phone: [facility] 09-28-2024 13:39-0400 Heart rate 79 /min Malachi Macdonald MD Work Phone: [facility] 09-28-2024 13:39-0400 Systolic blood pressure 114 mm[Hg] Malachi Macdonald MD Work Phone: [facility] 09-10-2024 11:56-0400 Body mass index (BMI) [Ratio] 26.76 kg/m2 Cuong Diana DO Work Phone: [facility] 09-10-2024 11:56-0400 Body weight 75.21 kg Cuong Diana DO Work Phone: [facility] 09-10-2024 11:56-0400 Diastolic blood pressure 80 mm[Hg] Cuong Diana DO Work Phone: [facility] 09-10-2024 11:56-0400 Systolic blood pressure 110 mm[Hg] Cuong Diana DO Work Phone: [facility] 08-27-2024 14:22-0400 Body mass index (BMI) [Ratio] 27.12 kg/m2 Ashwin Packer MD Work Phone: [facility] 08-27-2024 14:22-0400 Body weight 73.94 kg Ashwin Packer MD Work Phone: [facility] 08-27-2024 14:22-0400 Diastolic blood pressure 64 mm[Hg] Ashwin Packer MD Work Phone: [facility] 08-27-2024 14:22-0400 Systolic blood pressure 104 mm[Hg] Ashwin Packer MD Work Phone: [facility] 08-13-2024 11:48-0500 Body mass index (BMI) [Ratio] 25.95 kg/m2 Elena CHRISTENSEN Work Phone: [facility] 08-13-2024 11:48-0500 Body weight 72.94 kg Elena CHRISTENSEN Work Phone: [facility] 08-13-2024 11:48-0500 Diastolic blood pressure 68 mm[Hg] Elena Brigido CHRISTENSEN Work Phone: [facility] 08-13-2024 11:48-0500 Systolic blood pressure 112 mm[Hg] Elena Brigido CHRISTENSEN Work Phone: [facility] 07-20-2024 11:13-0500 Body mass index (BMI) [Ratio] 25.73 kg/m2 Cuong Diana DO Work Phone: [facility] 07-20-2024 11:13-0500 Body weight 72.3 kg Cuong Diana DO Work Phone: [facility] 07-20-2024 11:13-0500 Diastolic blood pressure 60 mm[Hg] Cuong Diana DO Work Phone: [facility] 07-20-2024 11:13-0500 Systolic blood pressure 100 mm[Hg] Cuong Diana DO Work Phone: [facility] 06-18-2024 10:37-0500 Body mass index (BMI) [Ratio] 25.02 kg/m2 [facility] 06-18-2024 10:37-0500 Body weight 70.31 kg Nom [facility] 06-18-2024 10:37-0500 Diastolic blood pressure 72 mm[Hg] [facility] 06-18-2024 10:37-0500 Systolic blood pressure 118 mm[Hg] [facility] 07-18-2023 10:30-0500 Body mass index (BMI) [Ratio] 26.7 kg/m2 Cuong Diana DO Work Phone: [facility] 07-18-2023 10:30-0500 Body weight 75.03 kg Cuong Diana DO Work Phone: [facility] 07-18-2023 10:30-0500 Diastolic blood pressure 68 mm[Hg] Cuong Diana DO Work Phone: [facility] 07-18-2023 10:30-0500 Systolic blood pressure 106 mm[Hg] Cuong Eppso DO Work Phone: [facility] 02-11-2023 14:13-0400 Body height 165.1 cm PA-Ventura Wyatt Work Phone: [facility] 02-11-2023 14:13-0400 Body temperature 97.9 [degF] PA-C Andie Wyatt Work Phone: [facility] 02-11-2023 14:13-0400 Body weight 70.55 kg PA-Ventura Wyatt Work Phone: [facility] 02-11-2023 14:13-0400 Diastolic blood pressure 80 mm[Hg] FERMIN-Ventura Wyatt Work Phone: [facility] 02-11-2023 14:13-0400 Heart rate 60 /min SADAF Wyatt Work Phone: [facility] 02-11-2023 14:13-0400 Respiratory rate 15 /min FERMIN-Ventura Wyatt Work Phone: [facility] 02-11-2023 14:13-0400 SaO2% (BldA) [Mass fraction] 99 % SADAF Wyatt Work Phone: [facility] 02-11-2023 14:13-0400 Systolic blood pressure 134 mm[Hg] FERMIN-Ventura Wyatt Work Phone: [facility] 02-08-2023 12:36-0400 Body height 165.1 cm PA-Ventura Wyatt Work Phone: [facility] 02-08-2023 12:36-0400 Body temperature 98.2 [degF] FERMIN-Ventura Wyatt Work Phone: [facility] 02-08-2023 12:36-0400 Body weight 72.57 kg FERMIN-Ventura Wyatt Work Phone: [facility] 02-08-2023 12:36-0400 Diastolic blood pressure 84 mm[Hg] PA-Ventura Wyatt Work Phone: [facility] 02-08-2023 12:36-0400 Heart rate 74 /min PA-Ventura Wyatt Work Phone: [facility] 02-08-2023 12:36-0400 Respiratory rate 15 /min PA-Ventura Wyatt Work Phone: [facility] 02-08-2023 12:36-0400 SaO2% (BldA) [Mass fraction] 98 % PA-C Andie Wyatt Work Phone: [facility] 02-08-2023 12:36-0400 Systolic blood pressure 150 mm[Hg] PA-Ventura Wyatt Work Phone: [facility] 12-19-2022 14:43-0400 Body temperature 96.9 [degF] SADAF Wyatt Work Phone: [facility] 12-19-2022 14:43-0400 Diastolic blood pressure 74 mm[Hg] PA-Ventura Wyatt Work Phone: [facility] 12-19-2022 14:43-0400 Heart rate 59 /min SADAF Wyatt Work Phone: [facility] 12-19-2022 14:43-0400 Respiratory rate 18 /min SADAF Wyatt Work Phone: [facility] 12-19-2022 14:43-0400 SaO2% (BldA) [Mass fraction] 100 % PA-Ventura Wyatt Work Phone: [facility] 12-19-2022 14:43-0400 Systolic blood pressure 115 mm[Hg] PA-eVntura Wyatt Work Phone: [facility] 12-19-2022 14:00-0400 Diastolic blood pressure 89 mm[Hg] FERMIN-Ventura Wyatt Work Phone: [facility] 12-19-2022 14:00-0400 Heart rate 79 /min PA-C Andie Wyatt Work Phone: [facility] 12-19-2022 14:00-0400 Respiratory rate 16 /min PA-C Andie Wyatt Work Phone: [facility] 12-19-2022 14:00-0400 SaO2% (BldA) [Mass fraction] 99 % PA-C Andie Wyatt Work Phone: [facility] 12-19-2022 14:00-0400 Systolic blood pressure 150 mm[Hg] PA-C Andie Wyatt Work Phone: [facility] 12-19-2022 03:30-0400 Body height 165.1 cm PA-C Andie Wyatt Work Phone: [facility] 12-19-2022 03:30-0400 Body weight 72.2 kg PA-Ventura Wyatt Work Phone: [facility] 12-18-2022 23:07-0400 Body height 165.1 cm PA-C Andie Wyatt Work Phone: [facility] 12-18-2022 23:07-0400 Body weight 74.2 kg PA-Ventura Wyatt Work Phone: [facility] 12-18-2022 23:05-0400 Body temperature 98.5 [degF] FERMIN-eVntura Wyatt Work Phone: [facility] 08-20-2022 14:31-0500 Body height 165.1 cm PA-C Andie Wyatt Work Phone: [facility] 08-20-2022 14:31-0500 Body temperature 98.9 [degF] FERMIN-C Andie Wyatt Work Phone: [facility] 08-20-2022 14:31-0500 Body weight 71.55 kg PAZhao Wyatt Work Phone: [facility] 08-20-2022 14:31-0500 Diastolic blood pressure 87 mm[Hg] PA-C Andie Wyatt Work Phone: [facility] 08-20-2022 14:31-0500 Heart rate 97 /min PAZhao Wyatt Work Phone: [facility] 08-20-2022 14:31-0500 Respiratory rate 18 /min PAZhao Wyatt Work Phone: [facility] 08-20-2022 14:31-0500 SaO2% (BldA) [Mass fraction] 98 % PAZhao Wyatt Work Phone: [facility] 08-20-2022 14:31-0500 Systolic blood pressure 135 mm[Hg] PA-Ventura Wyatt Work Phone: [facility] 02-08-2022 03:06-0400 Body weight 68.[address] CUONG ORTIZ . [facility] Comment on above: Performed By: #### AFPMAT #### [facility] [address] [place] [address] Dr. Juan Antonio Ibarra 02-05-2022 18:24-0400 Body height 165.1 cm PAZhao Wyatt Work Phone: [facility] 02-05-2022 18:24-0400 Body temperature 98.3 [degF] SAADF Wyatt Work Phone: [facility] 02-05-2022 18:24-0400 Body weight 67.9 kg SADAF Wyatt Work Phone: [facility] 02-05-2022 18:24-0400 Diastolic blood pressure 68 mm[Hg] PAZhao Wyatt Work Phone: [facility] 02-05-2022 18:24-0400 Heart rate 92 /min SADAF Wyatt Work Phone: [facility] 02-05-2022 18:24-0400 Respiratory rate 18 /min PAZhao Wyatt Work Phone: [facility] 02-05-2022 18:24-0400 SaO2% (BldA) [Mass fraction] 99 % SADAF Wyatt Work Phone: [facility] 02-05-2022 18:24-0400 Systolic blood pressure 125 mm[Hg] SADAF Wyatt Work Phone: [facility] Encounters Encounter Date Encounter Type Care Provider Facility Start: 10-26-2024 End: 10-26-2024 Bamboo flowsheet Cuong Diana DO Work Phone: [facility] Start: 10-26-2024 End: 10-26-2024 Bamboo flowsheet Cuong Diana DO Work Phone: [facility] Start: 10-26-2024 End: 10-26-2024 Clinisync Result Encounter Cuong Diana DO Work Phone: [facility] External Department Unsolicited Start: 10-26-2024 End: 10-26-2024 Office outpatient visit 15 minutes Cuong Diana DO Work Phone: [facility] Comment on above: 30 weeks gestation o f ; Third trimester ; Nadia cisterna magna (CMS/HCC); 28 weeks gestation of ; SGA (small for gestational age) Start: 10-26-2024 End: 10-26-2024 ambulatory CUONG DIANA Not Available Start: 10-19-2024 End: 10-19-2024 ambulatory CUONG DIANA Not Available Start: 10-12-2024 End: 10-12-2024 Bamboo flowsheet Cuong Diana DO Work Phone: [facility] Start: 10-12-2024 End: 10-12-2024 Bamboo flowsheet Cuong Diana DO Work Phone: [facility] Start: 10-12-2024 End: 10-12-2024 Office outpatient visit 15 minutes Cuong Diana DO Work Phone: [facility] Comment on above: Third trimester preg junaid; 28 weeks gestation of ; Nadia cisterna magna (CMS/HCC) Start: 10-12-2024 End: 10-12-2024 ambulatory CUONG DIANA Not Available Start: 09-28-2024 End: 09-28-2024 Office outpatient visit 25 minutes Malachi Macdonald MD Work Phone: [facility] Comment on above: Nadia cisterna magna (CMS-HCC) - (Primary Dx); Nodular heterotopia (CMS-HCC) - ; 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 , 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 Start: 09-28-2024 End: 09-28-2024 ambulatory CUONG R DIANA [facility] Start: 09-10-2024 End: 09-10-2024 Bamboo flowsheet Cuong Diana DO Work Phone: [facility] Start: 09-10-2024 End: 09-14-2024 Bamboo flowsheet Cuong Diana DO Work Phone: [facility] Start: 09-10-2024 End: 09-14-2024 Clinisync Result Encounter Cuong Diana DO Work Phone: [facility] External Department Unsolicited Start: 09-10-2024 End: 09-11-2024 External Result Encounter Cuong Diana DO Work Phone: [facility] External Department Unsolicited Start: 09-10-2024 End: 09-10-2024 Office outpatient visit 15 minutes Cuong Diana DO Work Phone: [facility] Comment on above: Well woman exam with routine gynecological exam; STD exposure; Vaginal discharge; Second trimester ; 24 weeks gestation of Start: 09-10-2024 End: 09-10-2024 Patient encounter procedure Cuong Diana DO Work Phone: [facility] Start: 09-10-2024 End: 09-10-2024 ambulatory CUONG DIANA Not Available Start: 08-27-2024 End: 08-27-2024 Office consultation new/estab patient 60 min Ashwin Packer MD Work Phone: [facility] Comment on above: Suspected anom kaitlynn, antepartum, single or unspecified fetus (Primary Dx); 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 , 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; Family history of genetic disorder; Fetus with trisomy 13, single gestation; CM (congenital malformation) Start: 08-27-2024 End: 08-27-2024 Chart abstracting Scanning Provider External [facility] Start: 08-27-2024 End: 08-27-2024 ambulatory ASHWIN [facility] Start: 08-13-2024 End: 08-13-2024 Office outpatient visit 15 minutes Elena Fofana PA Work Phone: [facility] Comment on [...] 06-22-2024 ambulatory Andie Wyatt PA-C Work Phone: [facility] Work Phone: Start: 06-22-2024 End: 06-22-2024 Departed Referred Andie Wyatt PA-C Work Phone: [facility] Start: 06-18-2024 End: 06-18-2024 [facility] Diana Nurse [facility] Comment on above: GA: 12w2d Start: 12-26-2023 End: 12-26-2023 ambulatory AMAURI Sanders [facility] Start: 12-24-2023 End: 12-24-2023 ambulatory CUONG DIANA Not Available Start: 11-04-2023 End: 11-04-2023 ambulatory CUONG DIANA Not Available Start: 10-28-2023 End: 10-28-2023 ambulatory CUONG DIANA Not Available Start: 07-22-2023 Documentation procedure Lucio HARPER Work Phone: [facility] Comment on above: Outgoing Ca ll [...] Rosaura HARPER Work Phone: [facility] Comment on above: Family history of ge netic disorder (Primary Dx); Genetic testing; Fetus with trisomy 13, single gestation Start: 06-25-2023 Chart abstracting Scanning Pro vider External [facility] Start: 02-11-2023 End: 02-11-2023 Emergency department patient visit SADAF Wyatt Work Phone: [facility]-Emergency Room Work Phone: Start: 02-08-2023 End: 02-08-2023 Emergency department patient visit SADAF Wyatt Work Phone: [facility]-Emergency Room Work Phone: Start: 12-19-2022 End: 12-19-2022 Evaluation and management of inpatient SADAF Wyatt Work Phone: [facility] [place] Work Phone: Start: 12-19-2022 End: 12-19-2022 observation encounter SADAF Wyatt Work Phone: [facility] Work Phone: Start: 10-24-2022 End: 10-24-[address] CUONG ORTIZ . Facility:[facility] Start: 10-23-2022 Registered Recurring SADAF Wyatt Work Phone: [facility] Start: 08-20-2022 End: 08-20-2022 Emergency department patient visit SADAF Wyatt Work Phone: [facility]-Emergency Room Work Phone: Start: 07-23-[address] CUONG ORTIZ . Facili ty:[facility]1 Start: 07-09-2022 End: 07-09-[address] CUONG ORTIZ . Facility:[facility] Start: 07-05-2022 End: 07-07-2022 Evaluation and management of inpatient DR CUONG ORTIZ . Facility:[facility] Start: 07-02-2022 End: 07-02-2022 ambulatory [facility] Facility:[facility] Start: 06-28-2022 End: 06-28-[address] CUONG ORTIZ . Facility:[facility] Start: 06-21-2022 End: 06-21-2022 ambulatory [facility] Facility:[facility] Start: 06-16-2022 End: 06-16-[address] CUONG ORTIZ . Facility:[facility] Start: 06-14-2022 End: 06-14-2022 ambulatory ELENA EDWARDSEY . Facility:[facility] Start: 06-14-2022 End: 06-14-[address] CUONG ORTIZ . Facility:[facility] Start: 06-07-2022 End: 06-07-[address] CUONG ORTIZ . Facility:[facility] Start: 06-04-2022 End: 06-04-[address] CUONG ORTIZ . Facility:[facility] Start: 06-02-2022 End: 06-02-[address] CUONG ORTIZ . Facility:[facility] Start: 05-31-2022 End: 05-31-[address] CUONG ORTIZ . Facility:[facility] Start: 05-24-2022 End: 05-24-2022 [facility] Facility:[facility] Start: 04-04-2022 End: 04-05-2022 ambulatory [...] SADAF Wyatt Work Phone: [facility]-Emergency Room Start: 12-26-2021 End: 12-27-[address] CUONG ORTIZ . Facility:[facility] Start: 12-07-2021 End: 12-08-[address] CUONG ORTIZ . Facility: Start: 12-27-2017 End: 12-27-2017 Patient encounter Christian Ivan Facility:[facility] Start: 12-12-2017 End: 12-12-2017 Emergency department patient visit Luke Barbosa Facility:[facility] Start: 12-12-2017 Patient encounter Facil [id number] Start: 12-07-2017 Evaluation and manag ement of inpatient CLARA JAMA Facility:[facility] Start: 12-03-2017 Evaluation and manag ement of inpatient CLARA JAMA Facility:[facility] Start: 12-03-2017 Patient encounter procedure CLARA JAMA Facility:[facility] Start: 12-02-2017 Evaluation and manag ement of inpatient CLARA JAMA Facility:[facility] Start: 11-30-2017 End: 12-02-2017 Evaluation and management of inpatient CLARA JAMA [facility] Start: 11-30-2017 End: 11-30-2017 Patient encounter Eloisa Nguyen Facility:[facility] Start: 11-30-2017 Patient encounter Facil [id number] Start: 11-28-2017 End: 11-28-2017 Patient encounter CLARA JAMA [facility] Start: 11-21-2017 End: 11-21-2017 Patient encounter OKSANA CELINA [facility] Start: 11-21-2017 End: 11-21-2017 Patient encounter Juanita Cole Facility:[facility] Start: 11-20-2017 Patient encounter Facil [id number] Start: 11-17-2017 End: 11-17-2017 Patient encounter Chirstian Ivan Facility:[facility] Start: 11-16-2017 Patient encounter Facil [id number] Start: 11-07-2017 End: 11-07-2017 Patient encounter OKSANA AMADO [facility] Start: 10-31-2017 End: 10-31-2017 Patient encounter CLARA JAMA [facility] Start: 10-24-2017 End: 10-24-2017 Patient encounter MARCO ANTONIO ANTONIO [facility] Start: 10-16-2017 End: 10-16-2017 Patient encounter Christian Ivan Facility:[facility] Start: 10-08-2017 End: 10-08-2017 Patient encounter ALIREZA PATEL [facility] Start: 10-08-2017 End: 10-08-2017 Patient encounter OKSANA AMADO [facility] Start: 10-01-2017 End: 10-02-2017 Patient encounter Christian [place] Facility:[facility] Start: 09-10-2017 End: 09-11-2017 Patient encounter LUIS DANIEL TRAMMELL [facility] Start: 09-10-2017 End: 09-10-2017 Patient encounter KRIS HOYT [facility] Start: 09-10-2017 End: 09-10-2017 Patient encounter CLARA JAMA [facility] Start: 09-03-2017 End: 09-04-2017 Patient encounter Christian [place] Facility:[facility] Start: 08-28-2017 Ambulatory NAGA [facility] Start: 08-13-2017 End: 08-14-2017 Patient encounter CLARA JAMA [facility] Start: 08-13-2017 End: 08-13-2017 Patient encounter MEREDITH KIDDS [facility] Start: 08-13-2017 End: 08-13-2017 Patient encounter ALIREZA PATEL [facility] Start: 08-10-2017 End: 08-10-2017 Emergency department patient visit Luke Barbosa Facility:[facility] Start: 08-06-2017 End: 08-07-2017 Patient encounter Christian [place] Facility:[facility] Start: 07-23-2017 End: 07-24-2017 Patient encounter Christian [place] Facility:[facility] Start: 07-18-2017 End: 07-18-2017 Patient encounter CLARA JAMA [facility] Start: 07-09-2017 End: 07-10-2017 Patient encounter Christian [place] Facility:[facility] Start: 06-25-2017 End: 06-26-2017 Patient encounter Christian [place] Facility:[facility] Start: 06-12-2017 End: 06-12-2017 Patient encounter Christian [place] Facility:[facility] Start: 05-14-2017 End: 05-15-2017 Patient encounter Christian A Shekhar Facility:[facility] Start: 05-01-2017 End: 05-02-2017 Patient encounter Eloisa Nguyen Facility:[facility] Start: 04-23-2017 End: 04-23-2017 Patient encounter Yasmin Evans Facility:[facility] Start: 04-22-2017 End: 04-22-2017 Emergency department patient visit Luke Barbosa Facility:[facility] Start: 04-18-2017 End: 04-18-2017 Emergency department patient visit Luke Barbosa Facility:[facility] Start: 04-16-2017 End: 04-17-2017 Patient encounter Gamaliel Savage Facility:[facility] Start: 04-16-2017 End: 04-17-2017 Patient encounter Christianshoaib Ivan Facility:[facility] Start: 04-11-2017 End: 04-11-2017 Emergency department patient visit Nodr No Doctor Assigned Facility:[facility] Start: 03-26-2017 End: 03-27-2017 Patient encounter Luke Barbosa Facility:[facility] Start: 03-20-2017 End: 03-20-2017 Emergency department patient visit Nodr No Doctor Assigned Facility:[facility] Start: 03-01-2017 End: 03-01-2017 Emergency department patient visit Nodr No Doctor Assigned Facility:[facility] Procedures Date Procedure Procedure Detail Performing Clinician Start: 10-26-2024 [facility] CMP (CMP) (FOR R EMOTE [facility] USE) Cuong Diana DO Work Phone: Start: 10-26-2024 Urnls dip stick/tabl et rgnt non-auto w/o micrscp Cuong Diana DO Work Phone: Start: 10-12-2024 Urnls dip stick/tabl et rgnt non-auto w/o micrscp Cuong Diana DO Work Phone: Start: 09-14-2024 Urnls dip stick/tabl et rgnt non-auto w/o micrscp Cuong Diana DO Work Phone: Start: 09-10-2024 RECURRENT VAGINITIS (HTRX) Cuong Diana DO Work Phone: Start: 09-10-2024 IGP,APTIMA HPV,AGE GDLN Cuong Diana DO Work Phone: Start: 09-10-2024 Microscopic observat ion [Identifier] in Cervix by Cyto stain Cuong Diana DO Work Phone: Start: 07-20-2024 [...] Start: 12-18-2022 X-ray of both knees TARIQ Ventura Wyatt Work Phone: Start: 10-24-2022 Microscopic observat [...] above: Performed By: #### T &S #### [place] [address] Aerobic microbial culture FERMIN Churchill Andie Wyatt Work Phone: Investigation of transfusion reaction SADAF Wyatt Work Phone: Plan of Treatment Date Care Activity Detail Author Start: 12-18-2032 DTaP,Tdap and Td Vaccines (10 - Td or Tdap) DTaP,Tdap and Td Vaccines (10 - Td or Tdap) [facility] Start: 10-25-2027 Screening for malign ant neoplasm of cervix [facility] Start: 09-11-2027 Screening for malign ant neoplasm of cervix Pap Smear [facility] Start: 10-24-2025 Screening for malign ant neoplasm of cervix Pap Smear [facility] Start: 08-27-2025 Adult BMI Screening Adult BMI Screen ing [facility] Start: 08-27-2025 Tobacco Screening Tobacco Screening [facility] Start: 02-15-2025 Influenza vaccination [facility] Start: 11-10-2024 End: 11-10-2024 Patient encounter procedure 11/10/2024 10:30 AM EDT Routine [facility] [address] [place] [address] Cuong Ortiz DO [address] [place] [address] [facility] Start: 10-26-2024 End: 04-28-2025 US biophysical profile w non stress test US biophysical profile w non stress test Imaging Routine 30 weeks gestation of Third trimester Nadia cisterna magna (CMS/HCC) 28 weeks gestation of Expected: 10/26/2024 (Approximate), Expires: 04/28/2025 [facility] Work Phone: Comment on above: Expected: 10/26/2024 (Approximate), Expires: 04/28/2025 Start: 10-26-2024 End: 02-26-2025 US for US OB follow up transabdominal approach Imaging Routine 30 weeks gestation of Third trimester Nadia cisterna magna (CMS/HCC) 28 weeks gestation of SGA (small for gestational age) Expected: 10/26/2024, Expires: 02/26/2025 [facility] Comment on above: Expected: 10/26/2024 , Expires: 02/26/2025 Start: 10-26-2024 End: 10-26-2024 Patient encounter procedure [facility] Comment on above: Arrived Start: 10-19-2024 End: 10-19-2024 Professional / ancillary services management 10/19/2024 11:30 AM EDT Ancillary Procedure [facility] [address] [place] [id number] [facility] Start: 10-12-2024 End: 02-11-2025 US for US OB follow up transabdominal approach Imaging Routine Nadia cisterna magna (CMS/HCC) Expected: 10/12/2024, Expires: 02/11/2025 [facility] Work Phone: Comment on above: Expected: 10/12/2024 , Expires: 02/11/2025 Start: 10-12-2024 End: 10-12-2024 Patient encounter procedure 10/12/2024 1:20 PM EDT Routine [facility] [address] [place] [address] Cuong Ortiz, DO [address] [place] [address] [facility] Start: 10-12-2024 End: 10-12-2024 Patient encounter procedure 10/12/2024 9:20 AM EDT Routine [facility] [address] [facility] [phone] Cuong Ortiz, DO [address] [place] [address] Arrived [facility] Comment on above: Arrived Start: 09-24-2024 End: 09-24-2024 Patient encounter procedure 09/24/2024 9:45 AM EDT Appointment [facility] [address] [address] [place] [address] [facility] Start: 09-10-2024 End: 09-10-2024 Patient encounter procedure 09/10/2024 11:10 AM EDT Routine [facility] [address] [facility] [id number] Cuong Ortiz, DO [address] [place] [address] [facility] Start: 08-27-2024 End: 08-27-2025 [...] 08/27/2024 1:00 PM EDT Appointment [facility] [address] [facility] [address] [place] [phone] [facility] Start: 08-13-2024 End: 08-13-2024 Patient encounter procedure 08/13/2024 11:30 AM EST Routine [facility] [address] [facility] [phone] Elena Fofana PA [address] [place] [address] [facility] Start: 08-13-2024 End: 08-13-2024 Professional / ancillary services management 08/13/2024 10:30 AM EST Ancillary Procedure [facility] [address] [place] [address] [facility] Start: 07-20-2024 End: 08-17-2024 Alpha fetoprotein, maternal Alpha fetoprotein, maternal Lab Routine 16 weeks gestation of Second trimester Expected: 07/20/2024 (Approximate), Expires: 08/17/2024 [facility] Comment on above: Expected: 07/20/2024 (Approximate), Expires: 08/17/2024 Start: 07-20-2024 End: 07-20-2025 US for US OB 14+ weeks anatomy scan Imaging Routine Screening, , for anatomic survey Expected: 07/20/2024, Expires: 07/20/2025 [facility] Work Phone: Comment on above: Expected: 07/20/2024 , Expires: 07/20/2025 Start: 07-20-2024 End: 07-20-2024 Patient encounter procedure 07/20/2024 10:40 AM EST Routine [facility] [address] [place] [phone] Cuong Ortiz DO [address] [place] [address] [facility] Start: 06-22-2024 Bacteria identified in Urine by Culture Urine Culture [facility] Start: 06-22-2024 Urine culture [facility] Start: 06-18-2024 End: 06-18-2025 ABO/Rh ABO/Rh Lab Routine Missed menses , unspecified gestational age Expected: 06/18/2024 (Approximate), Expires: 06/18/2025 [facility] Comment on above: Expected: 06/18/2024 (Approximate), Expires: 06/18/2025 Start: 06-18-2024 End: 06-18-2025 Blood type and Indirect antibody screen panel - Blood Type and screen Lab Routine Missed menses , unspecified gestational age Expected: 06/18/2024 (Approximate), Expires: 06/18/2025 [facility] Work Phone: Comment on above: Expected: 06/18/2024 (Approximate), Expires: 06/18/2025 Start: 06-18-2024 End: 06-18-2025 Drugs of abuse panel - Urine by Screen method Rapid drug screen, urine Lab Routine , unspecified gestational age Encounter for supervision of normal first in first trimester Expected: 06/18/2024 (Approximate), Expires: 06/18/2025 [facility] Healthcare Comment on above: Expected: 06/18/2024 (Approximate), Expires: 06/18/2025 Start: 02-16-2024 COVID-19 Vaccine ( season) COVID-19 Vaccine () [facility] Start: 02-16-2024 Influenza vaccination N [facility] Start: 09-11-2023 Adult BMI Screening Adult BMI Screen ing [facility] Start: 09-11-2023 Tobacco Screening Tobacco Screening [facility] Start: 08-15-2023 End: 08-15-2023 Patient encounter procedure 08/15/2023 2:15 PM EST [facility]ointment [facility] [address] [facility] [address] [place] [address] [facility] Start: 08-15-2023 End: 08-15-2023 Patient encounter procedure 08/15/2023 9:10 AM EST Routine [facility] [address] [place] [address] Cuong Ortiz, DO [address] [place] [address] [facility] Start: 07-18-2023 End: 07-18-2023 Patient encounter procedure 07/18/2023 8:00 AM EST [facility]ointment [facility] [address] [place] [address] [facility] Start: 07-03-2023 End: 07-03-2023 Telemedicine consultation with patient 07/03/2023 11:00 AM EST Telemedicine [facility] at [facility] [address] [place] [phone] [facility] [address] [place] [address] [facility] Start: 05-02-2023 Depression Screening Depression [facility] Start: 02-15-2023 COVID-19 Vaccine ( season) COVID-19 Vaccine ( season) [facility] Start: 02-15-2023 Influenza vaccination N [facility] Start: 12-19-2022 Bacteria identified in Urine by Culture Urine Culture [facility] Start: 12-19-2022 [facility] Start: 12-19-2022 CT of head without contrast CT head/brain wo con [facility] Start: 12-19-2022 CT Unspecified body region WO contrast [facility] Start: 12-19-2022 Consultation [facility] Start: 12-19-2022 Hospital admission [facility] Start: 12-19-2022 X-ray of left foot XR foot LT 2V Fir [facility] Start: 12-19-2022 XR Foot - left 2 Views [facility] Start: 12-18-2022 Computed tomography of thoracic spine without contrast CT thoracic spine wo con [facility] Start: 12-18-2022 CT cervical spine without contrast CT cervical spine wo con [facility] Start: 12-18-2022 CT Cervical spine WO contrast [facility] Start: 12-18-2022 CT Lumbar spine WO contrast [facility] Start: 12-18-2022 CT of head without contrast CT head/brain wo [facility] Start: 12-18-2022 CT of lumbar spine without contrast CT lumbar spine wo [facility] Start: 12-18-2022 CT Thoracic spine WO contrast [facility] Start: 12-18-2022 CT Unspecified body region WO contrast [facility] Start: 12-18-2022 Pelvis X-ray XR pelvis 1-2V [facility] Start: 12-18-2022 Plain chest X-ray XR chest 1V portab le [facility] Start: 12-18-2022 X-ray of both knees XR knee BI 2V [facility] Start: 12-18-2022 XR Chest Single view [facility] Start: 12-18-2022 XR Knee - bilateral 2 Views [facility] Start: 12-18-2022 XR Pelvis 1 or 2 Views [facility] Start: 2022 Screening for malign ant neoplasm of cervix [facility] Start: 02-05-2022 [facility] Work Phone: Start: 2013 Screening for malign ant neoplasm of cervix Pap Smear [facility] Start: 2011 DTaP,Tdap and Td Vaccines (1 - Tdap) DTaP,Tdap and Td Vaccines (1 - Tdap) [facility] Start: 2010 Adult BMI Follow Up Plan Adult BMI Follow Up Plan [facility] Anaerobic microbial culture Anaerobic Culture [facility] Bacteria identified in Urine by Culture [facility] Bacteria identified in Urine by Culture Urine culture Microbiology Routine Missed menses Ordered: 06/18/2024 [facility] Comment on above: Ordered: 06/18/2024 CBC W Auto Different ial panel - Blood CBC and differential Lab Routine Missed menses , unspecified gestational age Ordered: 06/18/2024 [facility] Comment on above: Ordered: 06/18/2024 CHLAMYDIA TRACHOMATI S (GENITO/STI) CHLAMYDIA TRACHOMATIS (GENITO/STI) Lab Routine STD exposure Vaginal discharge Ordered: 09/10/2024 [facility] Comment on above: Ordered: 09/10/2024 Cytology Cervical or vaginal smear or scraping study Pap Smear Pathology and Cytology Routine Well woman exam with routine gynecological exam Ordered: 09/10/2024 [facility] Work Phone: Comment on above: Ordered: 09/10/2024 Hemoglobin A1c/Hemoglobin.total in Blood Hemoglobin A1c Lab Routine Missed menses , unspecified gestational age Ordered: 06/18/2024 [facility] Comment on above: Ordered: 06/18/2024 Hepatitis B virus surface Ag [Presence] in Serum or Plasma by Immunoassay Hepatitis B surface antigen Lab Routine Missed menses , unspecified gestational age Ordered: 06/18/2024 [facility] Comment on above: Ordered: 06/18/2024 Hepatitis C virus Ab [Presence] in Serum or Plasma by Immunoassay Hepatitis C antibody Lab Routine Missed menses , unspecified gestational age Ordered: 06/18/2024 [facility] Comment on above: Ordered: 06/18/2024 HIV-1/HIV-2 antigen/antibody combination immunoassay HIV-1 and HIV-2 antibodies Lab Routine Missed menses , unspecified gestational age Ordered: 06/18/2024 [facility] Comment on above: Ordered: 06/18/2024 Human papilloma viru s DNA [Presence] in Unspecified specimen by Probe with amplification HPV DNA probe, amplified Microbiology Routine Well woman exam with routine gynecological exam Ordered: 09/10/2024 [facility] Comment on above: Ordered: 09/10/2024 Neisseria gonorrhoea e DNA [Presence] in Unspecified specimen by RAINER with probe detection Neisseria gonorrhea DNA probe, direct Lab Routine STD exposure Vaginal discharge Ordered: 09/10/2024 [facility] Comment on above: Ordered: 09/10/2024 Patient Education [facility] Work Phone: Patient referral [facility] Work Phone: Reagin Ab [Presence] in Serum by RPR RPR Lab Routine Missed menses , unspecified gestational age Ordered: 06/18/2024 [facility] Comment on above: Ordered: 06/18/2024 Rubella antibody, IgG Rubella an tibody, IgG Lab Routine Missed menses , unspecified gestational age Ordered: 06/18/2024 [facility] Comment on above: Ordered: 06/18/2024 SURESWAB(R) ADVANCED VAGINITIS PLUS, TMA SURESWAB(R) ADVANCED VAGINITIS PLUS, TMA Pathology and Cytology Routine STD exposure Vaginal discharge Ordered: 09/10/2024 [facility] Comment on above: Ordered: 09/10/2024 Immunizations Immunization Date Immunization Notes Care Provider Fa cility 12-18-2022 tetanus toxoid, redu swati diphtheria toxoid, and acellular pertussis vaccine, adsorbed SADAF Wyatt Work Phone: [facility] 07-07-2022 diphtheria, tetanus toxoids and pertussis vaccine Ashwin Packer MD Work Phone: [facility] 11-07-2017 tetanus toxoid, redu swati diphtheria toxoid, and acellular pertussis vaccine, adsorbed Ashwin Packer MD Work Phone: [facility] 10-24-2017 tetanus toxoid, redu swati diphtheria toxoid, and acellular pertussis vaccine, adsorbed Ashwin Packer MD Work Phone: [facility] 05-19-2013 influenza, injectabl e, quadrivalent, preservative free Ashwin Packer MD Work Phone: [facility] 05-19-2013 influenza virus vacc ine, unspecified formulation Rosaura Renee [facility] Work Phone: [facility] 04-29-2012 influenza virus vacc ine, whole virus Ashwin Packer MD Work Phone: [facility] 10-18-2010 human papilloma viru s vaccine, quadrivalent Ashwin Packer MD Work Phone: [facility] 07-26-2010 human papilloma viru s vaccine, quadrivalent Ashwin Packer MD Work Phone: [facility] 12-24-2008 human papilloma viru s vaccine, quadrivalent Ashwin Packer MD Work Phone: [facility] 12-24-2008 meningococcal polysaccharide (groups A, C, Y and W-135) diphtheria toxoid conjugate vaccine (MCV4P) Ashwin Packer MD Work Phone: [facility] 12-09-1997 haemophilus influenz ae type b vaccine, PRP-T conjugate Ashwin Packer MD Work Phone: [facility] 12-09-1997 hepatitis B vaccine, pediatric or pediatric/adolescent dosage Ashwin Packer MD Work Phone: [facility] 10-08-1997 diphtheria, tetanus toxoids and acellular pertussis vaccine, unspecified formulation Ashwin Packer MD Work Phone: [facility] 10-08-1997 haemophilus influenz ae type b vaccine, PRP-T conjugate Ashwin Packer MD Work Phone: [facility] 10-08-1997 hepatitis B vaccine, pediatric or pediatric/adolescent dosage Ashwin Packer MD Work Phone: [facility] 10-08-1997 measles, mumps and rubella virus vaccine Ashwin Packer MD Work Phone: [facility] 10-08-1997 trivalent poliovirus vaccine, live, oral Ashwin Packer MD Work Phone: [facility] 09-18-1997 DTaP-Haemophilus influenzae type b conjugate vaccine Ashwin Packer MD Work Phone: [facility] 09-18-1997 poliovirus vaccine, unspecified formulation Ashwin Packer MD Work Phone: [facility] 03-10-1997 haemophilus influenz ae type b vaccine, PRP-T conjugate Ashwin Packer MD Work Phone: [facility] 03-10-1997 hepatitis B vaccine, pediatric or pediatric/adolescent dosage Ashwin Packer MD Work Phone: [facility] 08-23-1993 DTaP-Haemophilus influenzae type b conjugate vaccine Ashwin Packer MD Work Phone: [facility] 08-23-1993 measles, mumps and rubella virus vaccine Ashwin Packer MD Work Phone: [facility] 08-23-1993 trivalent poliovirus vaccine, live, oral Ashwin Packer MD Work Phone: [facility] 01-16-1993 haemophilus influenz ae type b vaccine, conjugate unspecified formulation Ashwin Packer MD Work Phone: [facility] 1992 DTaP-Haemophilus influenzae type b conjugate vaccine Ashwin Packer MD Work Phone: [facility] 1992 DTaP-Haemophilus influenzae type b conjugate vaccine Ashwin Packer MD Work Phone: [facility] 1992 poliovirus vaccine, unspecified formulation Ashwin Packer MD Work Phone: [facility] 1992 diphtheria, tetanus toxoids and pertussis vaccine Ashwin Packer MD Work Phone: [facility] 1992 haemophilus influenz ae type b vaccine, conjugate unspecified formulation Ashwin Packer MD Work Phone: [facility] 1992 trivalent poliovirus vaccine, live, oral Ashwin Packer MD Work Phone: [facility] 1992 DTaP-Haemophilus influenzae type b conjugate vaccine Ashwin Packer MD Work Phone: [facility] 1992 trivalent poliovirus vaccine, live, oral Ashwin Packer MD Work Phone: [facility] Payers Date Payer Category Payer Self-pay 2017 Medicaid 2017 Unknown 1992 Unknown [id number] 2..[id number] 1992 Unknown [id number] 2..840.1.879016.3.579.2.278 1992 Unknown [id number] 2..840.1.917417.3.579.2.278 1992 Unknown [id number] 2.16.840.1.932982.3.579.2.278 1992 Unknown [id number] 2.16.840.1.760489.3.579.2.593 1992 Unknown [id number] 2.16.840.1.845513.3.579.2.593 1992 Unknown [id number] 2.16.840.1.669629.3.579.2.593 1992 Unknown [id number] 2.16.840.1.363595.3.579.2.593 1992 Unknown [id number] 2.16.840.1.132710.3.579.2.593 1992 Unknown [id number] 2.16.840.1.951574.3.579.2.593 1992 Unknown [id number] 2.16.840.1.198507.3.579.2.593 1992 Unknown [id number] 2.16.840.1.672590.3.579.2.593 1992 Unknown [id number] 2.16.840.1.681500.3.579.2.593 1992 Unknown [id number] 2.16.840.1.528143.3.579.2.593 1992 Unknown [id number] 2.16.840.1.344382.3.579.2.593 1992 Unknown [id number] 2.16.840.1.751065.3.579.2.593 1992 Unknown [id number] 2.16.840.1.254063.3.579.2.593 1992 Unknown [id number] 2.16.840.1.931328.3.579.2.593 1992 Unknown [id number] 2.16.840.1.453721.3.579.2.593 1992 Unknown [id number] 2.16.840.1.669234.3.579.2.593 1992 Unknown [id number] 2.16.840.1.615280.3.579.2.593 1992 Unknown [id number] 2.16.840.1.167918.3.579.2.593 1992 Unknown [id number] 2.16.840.1.827922.3.579.2.593 1992 Unknown [id number] 2.16.840.1.532900.3.579.2.593 1992 Unknown [id number] 2.16.840.1.442645.3.579.2.593 1992 Unknown [id number] 2.16.840.1.649967.3.579.2.59 1992 Unknown [id number] 2.16.840.1.289055.3.579.2.128 1992 Unknown [id number] 2.16.840.1.188011.3.579.2.128 1992 Unknown [id number] 2.16.840.1.913440.3.579.2.1286 1992 Unknown [id number] 2.16.840.1.449150.3.579.2.128 1992 Unknown [id number] 2.16.840.1.774817.3.579.2.128 1992 Unknown [id number] 2.16.840.1.322871.3.579.2.1259 1992 Unknown [id number] 2.16.840.1.997778.3.579.2.9 1992 Unknown [id number] 2.16.840.1.628700.3.579.2.1259 1992 Unknown [id number] 2.16.840.1.065450.3.579.2.9 1992 Unknown [id number] 2.16.840.1.000314.3.579.2.1258 1992 Unknown [id number] 2.16.840.1.941815.3.579.2.1258 1992 Unknown [id number] 2.16.840.1.936712.3.579.2.1258 1992 Unknown [id number] 2.16.840.1.889354.3.579.2.1258 1992 Unknown [id number] 2.16.840.1.853836.3.579.2.1258 1992 Unknown [id number] 2.16.840.1.613121.3.579.2.1258 1992 Unknown [id number] 2.16840.1.154171.3.579.2.1258 1992 Unknown [id number] 2.16.840.1.464928.3.579.2.9 1957 Medicaid [id number] 1957 Medicaid [id number] Medicaid [id number] Unknown Regular Auto/Liability [id number] Unknown [id number] 2.16.840.1.983804.3.579.2.531 Social History Date Type Detail Facility Start: 02-05-2022 End: 05-09-2023 Tobacco smoking status WIIS Never smoked tobacco (finding) [facility] Start: 1990 Sex Assigned At Female F [facility] Start: 12-19-2022 End: 12-19-2022 Tobacco smoking status WIIS Current some day smoker [facility] Start: 03-28-2022 End: 02-11-2023 Tobacco smoking status WIIS Ex-smoker (finding) [facility] Start: 07-18-2023 End: 10-26-2024 Alcohol intake Lifetime non-drinker (finding) [facility] Start: 05-09-2023 End: 08-12-2024 History of Social function [facility] [facility] Start: 05-09-2023 End: 08-12-2024 Tobacco use panel [facility] Start: 03-11-2023 [facility] Start: 1990 Sex Assigned At Not on file [facility] Start: 01-20-2015 End: 06-24-2024 Sex Female (finding) [facility] History of tobacco use Current smoker [facility] History of tobacco use Tobacco U se Types Packs/Day Years Used Date Smoking Tobacco: Former Vaping/E-cigarettes Smokeless Tobacco: Never [facility] Start: 03-28-2022 End: 08-27-2024 Tobacco use and exposure Smokeless tobacco non-user [facility] Start: 06-26-2023 End: 09-28-2024 Alcohol intake Current non-drinker of alcohol (finding) [facility] Frequency of Alcohol Consumption Never [facility] Goals Date Patient Goal Desired Activity /State Personal health goal Functional Status Date Assessment Result Facility 12-19-2022 Functional status Patient at Baseline [facility] Work Phone: Mental Status Date Assessment Result Facility 12-19-2022 Cognitive function Cognitive Sta tus Patient at Baseline [facility] Work Phone: Clinical Notes 11-13-2021 to 10-26-2024 Airam Murphy LPN - 10/26/2024 11:20 AM Sher Murphy LPN - 10/12/2024 9:20 AM Gena Cook RN - 09/28/2024 2:00 PM Tonny Macdonald MD - 09/28/2024 2:00 PM EDT Note Date & Type Note Facility 10-26-2024 History of Present illness Narrative Reason for [...] deficit disorder) ADHD (attention deficit hyperactivity disorder) ([facility]) Anxiety Bacterial vaginosis Bipolar disorder Club foot Depression ([facility]) Female infertility Heart problem Hormone imbalance HISTORY PAST MEDICAL HISTORY SOCIAL HISTORY Past Medical History: Diagnosis Date Abscess ADD (attention deficit disorder) ADHD (attention deficit hyperactivity disorder) ([facility]) Anxiety Bacterial vaginosis Bipolar disorder Club foot Depression ([facility]) Female infertility Heart problem Heart Issue Hormone [...] Vitals: Estimated body mass index is 27.34 kg/m as calculated from the following: Height [...] US OB follow up transabdominal approach 3. 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 Patient to return to clinic in 2 weeks. Documented by Airam Murphy LPN... on behalf of: Cuong Ortiz DO documented in this encounter [facility] 10-12-2024 History of Present illness Narrative Reason for [...] deficit disorder) ADHD (attention deficit hyperactivity disorder) ([facility]/HCC) Anxiety Bacterial vaginosis Bipolar disorder (CMS/HCC) Club foot Depression (CMS/HCC) Female infertility Heart problem Hormone imbalance HISTORY PAST MEDICAL HISTORY SOCIAL HISTORY Past Medical History: Diagnosis Date Abscess ADD (attention deficit disorder) ADHD (attention deficit hyperactivity disorder) ([facility]) Anxiety Bacterial vaginosis Bipolar disorder ([facility]) Club foot Depression ([facility]) Female infertility Heart problem Heart Issue Hormone [...] nursing note reviewed. Exam conducted with a route delivery clerk present. Vitals: Estimated body mass index is 27.16 kg/m as calculated from the following: Height as of 10/24/22: 5' 6 . Weight as of this encounter: 168 lb 4 oz. BP: 120/78 Patient's last menstrual period was 03/24/2024. ASSESSMENT & PLAN ICD-10-CM 1. Third trimester Z34.93 POCT urinalysis dipstick manually resulted 2. 28 weeks gestation of Z3A.28 3. 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 Patient is currently 28w6d with a Estimated Date of Delivery: 12/29/24. Discussed patient recent MFM visit. Patient to return to clinic in 2 weeks. Patient is to start NST/BPP/Growth at 32 weeks gestation. Patient has an appointment with MFM at 32 or 33 weeks gestation. Growth scan to be done in office next week. Documented by Airam Murphy LPN on behalf of: Cuong Ortiz DO documented in this encounter [facility] 09-28-2024 History of Present illness Narrative Headache/epigastric pain/blurry vision/swelling? No Cramping/contractions? No Abnormal vaginal discharge? No Spotting/vaginal bleeding? No Loss or gush of fluid like your water may have broken? No Do you have cats at home? No Do you change the litter box (reason: risk of toxoplasmosis)? N/A Genetic testing done this here or other office? Yes Have you been seen here at [facility] in a previous ? Yes Recent ER visits or hospitalizations? No Bring blood sugar log or meter with you today? (Please bring them with you for every visit at [facility]) N/A Flu vaccine (Apr-August)? N/A Any concerns that you would like me to mention to the provider today? No REASON FOR OFFICE VISIT: Nadia cisterna magna. HISTORY OF PRESENT ILLNESS: Zuleika Wyatt is a pleasant 34 y.o. G 7p 4-0 2 3 at 26w6d due on Estimated Date of Delivery: 12/29/24 . 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 Previous family member have been affected. Patient has opted out of genetic counseling in the previous as well. Maternal bipolar disorder currently stable not on medication. Currently the patient has no complaints. The patient denies nausea, vomiting, abdominal pain, vaginal bleeding, SOB or chest pain. 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) - ADHD Anxiety Bipolar disorder (CMS-HCC) Club foot Depression alcohol syndrome PTSD (post-traumatic stress disorder) ALLERGIES: Allergies Allergen Reactions Bee Venom Protein (Honey Bee) Mold Other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 Physician Physical Medicine and Rehabilitation 03/04/23 Commutator Repairer Relationship Specialty Start Date End Date Unallocated, Juan Antonio Randall MD [address] [place] [address] PCP - General 03/04/23 Andie Wyatt PA [address] [place] [address] Referring Physician Physical Medicine and Rehabilitation 03/04/23 Commutator Repairer Relationship Specialty Start Date End Date Andie Wyatt PA-C [address] [place] [address] PCP - General Physician Tool Crib Clerk 03/18/18 Commutator Repairer Relationship Specialty Start Date End Date Unallocated, Juan Antonio Randall MD [address] [place] [address] PCP - General 03/04/23 Andie Wyatt PA [address] [place] [address] Referring Physician Physical Medicine and Rehabilitation 03/04/23 Commutator Repairer Relationship Specialty Start Date End Date Andie Wyatt PA-C [address] [place] [address] PCP - General Physician Tool Crib Clerk 03/18/18 Commutator Repairer Relationship Specialty Start Date End Date Andie Wyatt PA-C [address] [place] [address] PCP - General Physician Tool Crib Clerk 03/18/18 Commutator Repairer Relationship Specialty Start Date End Date Unallocated, Juan Antonio Randall MD [address] [place] [address] PCP - General 03/04/23 Andie Wyatt PA [address] [place] [address] Referring Physician Physical Medicine and Rehabilitation 03/04/23 Commutator Repairer Relationship Specialty Start Date End Date Andie Wyatt PA-C [address] [place] [address] PCP - General Physician Tool Crib Clerk 03/18/18 Commutator Repairer Relationship Specialty Start Date End Date Unallocated, Juan Antonio Randall MD [address] [place] [address] PCP - General 03/04/23 Andie Wyatt PA [address] [place] [address] Referring Physician Physical Medicine and Rehabilitation 03/04/23 Commutator Repairer Relationship Specialty Start Date End [place] Unallocated, [place] [address] [place], [place] [address] [address] PCP - General 03/04/23 Andie Wyatt PA [address] [place], [place] [address] [address] Referring Physician Physical Medicine and Rehabilitation 03/04/23 Commutator Repairer Relationship Specialty Start Date End Date Andie Wyatt PA-C [address] [place], [place] [id number] PCP - General Physician Tool Crib Clerk 03/18/18 Commutator Repairer Relationship Specialty Start Date End Date Unallocated, Juan Antonio Randall MD [address] [place] [address] PCP - General 03/04/23 Andie Wyatt PA [address] [place] [address] Referring Physician Physical Medicine and Rehabilitation 03/04/23 Commutator Repairer Relationship Specialty Start Date End Date Unallocated, Juan Antonio Randall MD [address] [place] [address] PCP - General 03/04/23 Andie Wyatt PA [address] [place] [address] Referring Physician Physical Medicine and Rehabilitation 03/04/23 [...] Date Comments Outgoing Call 07/22/2023 Reason Comments mfm consult Reason Comments 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 [facility] [employer] [facility]. provides no warranty or guarantee of the accuracy or completeness of information in this document.
[2024-11-03 10:54] VITALS: BP 135/60; PULSE 96
== END 2024-11-03 11:52 | disposition home or self-care (01) ==
LOC: US 10:04 → FBC 10:10
PROVIDERS: PCP Family Medicine; Visit Provider Obstetrics & Gynecology
DX: O26.843 Uterine size-date discrepancy, third trimester (principal); Z3A.31 31 weeks gestation of pregnancy; Q04.9 Congenital malformation of brain, unspecified
CPT/HCPCS: 76816; 76818

== ENCOUNTER 2024-11-06 10:04 | Outpatient (OUT) | payer MEDICAID, SELFPAY ==
--- OUTSIDE RECORDS SUMMARY | 2024-08-25 09:45 | XMS_ITS ---
Author Organization [facility] vices Address [address] [place], [place] [id number] Care Team Providers Care Lip Reading Teacher Name Role Phone Tiffany Petersen Primary Care Provider Ailyn Pringle [phone] REASON FOR VISIT Recall (A) 31 Social History Sex Assigned At : Social History Observation Description Sex Assigned At Female Encounters Encounter Location Date Provider Diagnosis Dental Main [address] [place], [place] [id number] 08/25/2024 Ailyn Pringle Plan Of Treatment No Information Progress Notes * Nadine WADDELLDOB: 2 (34 yo F)Acc No.[id number]:08/25/2024 Patient: Ndaine BARRETT Provider: Bertin Pringle DMD :1990 A ge:34 Y S ex:Female Date:08/25/2024 Address:[address] [place] [address], [address] [facility]-[id number] Pcp:Tiffany Petersen Subjective: * Chief Complaints: * 1 . Recall (A) 31. * Medical History: Objective: * Vitals: Assessment: Plan: * Treatment: * Billing Information: * Visit Code: * Procedure Codes: * Electronic signature of Lilo Pringle DMD on 11/06/2024 at 10:06 AM EDT Sign off status: Pending * Provider: Bertin Pringle DMD Date: 0 08/25/2024 Generated for Vale coto/Judy/Kimberley on: 0 11/06/2024 10:06 AM EDT
--- OUTSIDE RECORDS SUMMARY | 2024-08-27 07:41 | XMS_ITS ---
Author Organization [facility] in [place] Address [address] [place] [address] Care Team Providers Care Ticket Agent Name Role Phone Laron Avila Primary Care [...] Active Encounters Encounter Location Date Provider Diagnosis [address] [address] 08/27/2024 Laron Avila Plan Of Treatment Medication [...] Nadine WADDELL LDOB: [birth year] (34 yo F)Acc No.[id number]:08/27/2024 Patient: Nadine BARRETT Nishant :1990 A ge:34 Y S ex:Female Address:[address], [place] [address] * Refills Start Ventolin HFA Aerosol Solution, [...] Date: Generated for Vale coto/Judy/Faisalitting on: 0 11/06/2024 10:06 AM EDT
--- OUTSIDE RECORDS SUMMARY | 2024-08-28 07:32 | XMS_ITS ---
Author Organization The [facility] in [place] Address [address] [place] [address] Care Team Providers Care Retail Director Name Role Phone Laron Avila Primary Care Provider REASON FOR VISIT epi pen Medications Medication SIG (Take, Route, Frequency, Duration) Notes Start Date End Date Status EpiPen 2-Long 0.3 MG/0.3ML as directed In jection once prn 08/28/2024 Active Encounters Encounter Location Date Provider Diagnosis [address] [address] 08/28/2024 Laron Avila Plan Of Treatment Medication Medication Name Sig Start Date Stop Date Notes EpiPen 2-Long 0.3 MG/0.3ML as directed Injection once prn 0 08/28/2024 Progress Notes * Nadine WADDELL LDOB: [birth year] (34 yo F)Acc No.[id number]:08/28/2024 Patient: Nadine BARRETT :1990 A ge:34 Y S ex:Female Address:[address] [place] [address], [address] [place] [address] * Refills Start EpiPen 2-Long Solution Auto-injector, 0.3 MG/0.3ML, Injection, 1, as directed, once prn, Refills=11 * true * Date: Generated for Printi ng/Faxing/eTransmitting on: 0 11/06/2024 10:07 AM EDT
--- OUTSIDE RECORDS SUMMARY | 2024-09-11 06:30 | XMS_ITS ---
Author Organization [facility] vices Address [address] [place], [place] [phone] Care Team Providers Care Guest Service Representative Name Role Phone TrinityMaryanaTiffany Primary Care Provider Ailyn Pringle [phone] REASON FOR VISIT Recall (A) 32 Medications [...] Location Date Provider Diagnosis Dental Main [address] [place], [place] [id number] 09/11/2024 Ailyn Pringle Plan Of Treatment No Information Progress Notes * Nadine WADDELLDOB: 2 (34 yo F)Acc No.[id number]:09/11/2024 Patient: Nadine BARRETT Provider: Bertin Pringle DMD :1990 A ge:34 Y S ex:Female Date:09/11/2024 Address:[address], [id number] Pcp:Tiffany Petersen Subjective: * Chief Complaints: * [...] of Lilo Pringle DMD on 11/06/2024 at 10:08 AM EDT Sign off status: Pending * Provider: Bertin Pringle DMD Date: 09/11/2024 Generated for Vale coto/Judy/Kimberley on: 11/06/2024 10:08 AM EDT
--- OUTSIDE RECORDS SUMMARY | 2024-09-23 09:05 | XMS_ITS ---
Author Organization The [facility] in [place] Address [address] [place] [address] Care Team Providers Care Zig Zag Spring Machine Operator Name Role Phone Laron Avila Primary Care Provider REASON FOR VISIT ER- check on Encounters Encounter Location Date Provider Diagnosis [address] [address] 09/23/2024 Laron Avila Plan Of Treatment No Information Progress Notes * BAIRON Nadine LDOB: [birth year] (34 yo F)Acc No.[id number]:09/23/2024 Patient: Nadine BARRETT :1990 A ge:34 Y S ex:Female Address:[address] [place] [address], [address] [address] * true * Date: Generated for Vale coto/Judy/eTransmitting on: 0 11/06/2024 10:06 AM EDT
--- OUTSIDE RECORDS SUMMARY | 2024-10-26 11:12 | XMS_ITS ---
Author Name Auto Generated Organization OH[facility] Care Team Providers Care Enamel Burner Name Role Phone DIANA, DAVE Attending Unavailable BARB KRAMER Attending Unavailable DIANA, DAVE Attending Unavailable DIANA, DAVE Attending Unavailable DIANA, DAVE Referring Unavailable DIANA, DAVE Attending Unavailable DIANA, DAVE Attending Unavailable AMAURI RODRIGUEZ Referring Unavailable WADDELL, ANDIE Thibodeaux Primary Care Unavailable DIANA, DAVE R Referring Unavailable ANDIE WADDELL Primary Care Unavailable ASHWIN CISNEROS Attending Unavailable ANDIE WADDELL Referring Unavailable WADDELL, ANDIE Thibodeaux Primary Care Unavailable DIANA, DAVE R Referring Unavailable WADDELL, ANDIE Thibodeaux Primary Care Unavailable MALACHI MACDONALD Attending Unavailable DIANA, DAVE R Referring Unavailable WADDELL, ANDIE Thibodeaux Primary Care Unavailable Andie Waddell Primary Care Unavailable Diana, Dave Attending Unavailable Diana, Dave Admitting Unavailable PROBLEMS DATE TYPE CONDITION / CODE ATTENDING STATUS [facility] 05/02/2022 Unknown 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) [facility] 05/02/2022 Unknown Congenital malfo rmation of brain, unspecified / Q04.9(ICD-10) [facility] 09/28/2024 Unknown Family history o f other specified conditions / Z84.89(ICD-10) [facility] 09/28/2024 Unknown Maternal care fo r (suspected) 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, trisomy 13, not applicable or unspecified / O35.11X0(ICD-10) [facility] 09/28/2024 Unknown Congenital malformation, unspecified / Q89.9(ICD-10) [facility] 09/28/2024 Unknown Maternal care fo r (suspected) abnormality and damage, unspecified, not applicable or unspecified / O35.9XX0(ICD-10) [facility] 08/27/2024 Unknown mfm consult / UNK(Unknown) ASHWIN CISNEROS [facility] 03/28/2022 Unknown Supervision of with other poor reproductive or obstetric history, second trimester / O09.292(ICD-10) [facility] PROCEDURES No Procedure Records Found RESULTS US OB FOLLOW UP TRANSABDOMINAL APPROACH Observed: 10/19/2024 11:35 AM Status: F Source: [facility] EP[facility] Order Comment: US OB SCAN FO R GROWTH Estimated Date of Delivery: 12/29/24 Gestational Age as of 10/12/2024: 28w6d EXAM: US OB FOLLOW UP TRANSA BDOMINAL APPROACH HISTORY: NDAIA CISTERNA MAGNA. HUGO 12/29/2024. A2. COMPARISON: U/S OB 08/13/2024, U/S OB MFM REPORT 08/27/2024 TECHNIQUE: Two-dimensional transabdominal grayscale ultrasound imaging of the pelvis was performed. FINDINGS: Gestation: Single Presentation: Cephalic Cardiac Activity: 149 beats per minute Placental Location: Anterior with no sonographic abnormalities identified. Distance from Placental Tip to Cervix: Not visualized Cervical Length: Obscured by overlying fetus Amniotic Fluid Index: Not measured, appears visually adequate MEASUREMENTS: BPD: 7.0 cm EGA: 28 weeks 0 days HC: 27.3 cm EGA: 29 weeks 6 days AC: 25.6 cm EGA: 29 weeks 5 days FL: 5.9 cm EGA: 30 weeks 4 days HC/AC Ratio: 1.07 (0.98-1.20) Gestational age by today's ultrasound is 29 weeks 4 days (+/- 14 days gestation). Estimated Weight: 1477 grams, +/- 222 grams ( 3 lb 4 oz). Weight Percentile for gestational age: 39% The cisterna magna is again dilated measuring 1.9 cm. IMPRESSION: 1. Single, live intrauterine gestation 29 weeks, 6 days by LMP. Today's ultrasound measurements correlate with a gestational age of 29 weeks 4 days. 2. Nadia cisterna magna measuring 1.9 cm. Interpreted by: Electronically signed by ELOISA HSU II, MD, PHD at 21-Oct-2024 08:41:57 AM [facility] US OB 14+ WEEKS ANATOMY SCAN Observed: 0 08/13/2024 10:34 AM Status: F Source: [facility] EPIC Order Comment: US OB ANATOMY SINGLE W US OB CERVICAL LENGTH Estimated Date of Delivery: 12/29/24 Gestational Age as of 07/20/2024: 16w6d EXAM: US OB 14+ WEEKS ANATOM Y SCAN HISTORY: anatomy. TECHNIQUE: Two-dimensional transabdominal grayscale [...] II, MD, PHD at 15-Aug-2024 07:21:28 AM [facility] URINE CULTURE Observed: 06/22/2024 12:33 PM Status: F Source: [facility] <9,000 colonies/ml mixed bacterial skin contaminants 2 Days PERFORMED BY: [facility] [address] [place] [address] PATHOLOGIST LOCOMOTIVE SWITCH OPERATOR JONO WILSON M.D. Performed By: #### CUU #### [address] ALLERGIES DATE TYPE / CODE NAME / CODE REACTION SEVERITY SOURCE 08/13/2024 DRUG INGREDI/522763 003(SNOMED CT) MOLD [facility] 03/27/2022 DRUG INGREDI~Enviro n~NON-CBORD/41 6241558(SNOMED CT) BEE VENOM PROTEIN (HONEY BEE) [facility] 08/23/2018 Drug Class~NON-CBOR D/978729965(SN OMED CT) SULFA (SULFONAMIDE ANTIBIOTICS) [facility] 11/27/2013 Drug Class~NON-CBOR D/987669783(SN OMED CT) PENICILLINS Hives [facility] 1990 Drug Allergy/348738 002(SNOMED CT) penicillin V/A382628651(RXNORM) Anaphylaxis Unknown [facility] 1990 Drug Allergy/958710 002(SNOMED CT) sulfacetamide/C76753 4890(RXNORM) Anaphylaxis Unknown [facility] ENCOUNTERS ADMIT/DISCHARGE ACCOUNT NUMBER ADMITTING ENCOUNTER CLASS LOCATION SOURCE 10/26/2024/10/27/19 [id number] Ambulatory Building:[facility] 10/19/2024/10/20/19 25 [id number] Ambulatory Building:[facility] 10/12/2024/10/13/19 25 [id number] Ambulatory Building:[facility] 09/28/2024/09/29/19 25 [id number] Ambulatory Buildin 4 [facility] 09/28/2024/09/29/19 25 [id number] Ambulatory Building:PTH _MFMUS [facility] 09/10/2024/09/11/19 25 [id number] Ambulatory Building:[facility] 08/27/2024/08/28/19 25 [id number] Ambulatory Buildin 00 [facility] 08/27/2024/08/28/19 25 [id number] Ambulatory Buildin 01 [facility] 08/13/2024/08/13/19 25 [id number] Ambulatory Building:[facility] 08/13/2024/08/13/19 25 [id number] Ambulatory Building:[facility] 07/20/2024/07/20/19 25 [id number] Ambulatory Building:[facility] 06/22/2024/06/22/19 25 [id number] Dave Ortiz [facility] 06/18/[facility]06/18/19 25 [id number] Ambulatory Building:[facility] 06/18/2024/06/18/19 25 [id number] Ambulatory Building:[facility] 12/26/2023/12/26/19 24 [id number] Ambulatory Building:[facility] 12/24/2023/12/24/19 24 [id number] Ambulatory Building:[facility] PAYERS ENCOUNTER GUARANTOR PAYER SUBSCRIBER SOURCE 10/26/2024 NADINE ZHU: [id number] [address] [address]Tov: (HP) Primary Insurance:[employer] MED[place]ID [place]: [id number] Date:2022-08-15 NADINE ZHU: [id number] [address] [address] [facility] 10/19/2024 NADINE MATSONB: [id number] [address] [address]Ftf: (HP) Primary Insurance:[employer] MED[place]ID [place] Number: [id number] Date:2022-08-15 NADINE ZHU: [id number] [address] [address] [facility] 10/12/2024 NADINE ZHU: [id number] [address] [place] [address]Rbf: (HP) Primary Insurance:[employer] MEDICAID [place] Number: [id number] Date:2022-08-15 NADINE ZHU: [id number] [id number], [place] [address] [facility] 09/28/2024 NADINE ZHU: [id number] [place] [address]Hnk: (HP) Primary Insurance:[place] MEDICAIDPolicy Number: [id number] Date:2022-07-18 NADINE ZHU: [id number] [place] [place] [address]Gtc: (HP) [facility] 09/28/2024 NADINE ZHU: [id number] [place] [address]Cdc: (HP) Primary Insurance:[employer] MEDICAIDPolicy Number: [id number] Date:2022-07-18 NADINE ZHU: [id number] [place] [address]Ufp: (HP) [facility] 09/10/2024 NADINE ZHU: [id number] [place] [address]Axv: (HP) Primary Insurance:[employer] MEDICAID [place] Number: [id number] Date:2022-08-15 NADINE ZHU: [id number] [place] [address] [facility] 08/27/2024 NADINE ZHU: [id number] [id number], [place] [address]Exg: (HP) Primary Insurance:[facility] MEDICAIDPolicy Number: [id number] Date:2022-07-18 NADINE ZHU: [id number] [address] [place] [address]Egj: (HP) [facility] 08/27/2024 NADINE PISANO MARKO: [id number] [place] [address]Iri: (HP) Primary Insurance:[facility] MEDICAIDPolicy Number: [id number] Date:2022-07-18 NADINE ZHU: [id number] [address] [place] [address]Ltx: (HP) [facility] 08/13/2024 NADINE ZHU: [id number] [place] [address]Kai: (HP) Primary Insurance:[employer] MEDICAID [place] Number: [id number] Date:2022-08-15 NADINE ZHU: [id number] [id number], [place] [address] [facility] 08/13/2024 NADINE ZHU: [id number] [place] [address]Nnp: (HP) Primary Insurance:[employer] MEDICAID [place] Number: [id number] Date:2022-08-15 NADINE ZHU: [id number] [id number], [place] [address] [facility] 07/20/2024 NADINE ZHU: [id number] [id number], [place] [address]Eyl: (HP) Primary Insurance:[employer] MEDICAID [place] Number: [id number] Date:2022-08-15 NADINE ZHU: [id number] [id number], [place] [address] [facility] 06/22/2024 Nadine Dillard [address] [place] [address]Cca: (HP) Primary Insurance:Self PayPolicy Number: Effective Date:2024-06-22 [facility]/18/2024 NADINE ZHU: [id number] [place] [address]Cvv: (HP) [facility] [place] Number: [id number] Date:2022-08-15 NADINE ZHU: [id number] [id number], [place] [address] [facility] 06/18/2024 NADINE ZHU: [id number] [id number], [place] [address]Oku: (HP) [facility] [place] Number: [id number] Date:2022-08-15 NADINE ZHU: [id number] [id number], [place] [address] [facility] 12/26/2023 NADINE ZHU: [phone] [place] [address]Sjh: (HP) Primary Insurance:[facility] MEDICAIDPolicy Number: [id number] Date:2022-07-18 NADINE ZHU: [id number] [address] [place], [place] [address]Nrx: (HP) [facility] 12/24/2023 NADINE ZHU: [phone] [id number], [place] [address]Aiy: (HP) Primary Insurance:[employer] MEDICAID [place] Number: [id number] Date:2022-08-15 NADINE ZHU: [id number] [address] [address] [facility]
--- OUTSIDE RECORDS SUMMARY | 2024-10-26 11:20 | XMS_ITS | Encounter Summary ---
Author Organization [facility] Address [address] [facility] [place] [address] Care Team Providers Care Nephrology Social Worker Name Role Phone Yoselin Jaime FERMIN Unavailable Unallocated, Noms Provider Primary Care Provi kwabena Reason for Visit * Reason Comments Routine Visit Encounter Details Date Type Department Care Team (Late st Contact Info) Description 10/26/2024 11:20 AM EDT Routine [facility] [address] [place] [address] Cuong Ortiz, DO [address] [place], [facility] [address] 30 weeks gestation of ; Third trimester ; Christiano cisterna magna (CMS/HCC); 28 weeks gestation of ; SGA (small for gestational age) Social History Tobacco Use Types Packs/Day Years Used Date Smoking Tobacco: Never Alcohol Use Standard Drinks/Week Comments Never 0 (1 standard drink = 0.6 oz pur e alcohol) PHQ-2 Answer Date Recorded Patient Health Questionnaire-2 Score 0 08/12/2024 Estimated Date of Delivery Comme nts Yes 12/29/2024 Based on last me nstrual period of 03/24/2024 Sex and Gender Information Value Date Recorded Sex Assigned at Not on file Legal Sex Female 11:47 PM EDT Gender Identity Not on file Sexual Orientation Not on file documented as of this encounter Last Filed Vital Signs Vital Sign Reading Time Taken Comments Blood Pressure 120/70 10/26/2024 11:46 AM EDT Pulse - - Temperature - - Respiratory Rate - - Oxygen Saturation - - Inhaled Oxygen Concentration - - Weight 76.8 kg (169 lb 6.4 oz) 10/26/2024 11:46 AM EDT Height - - Body Mass Index 27.34 10/24/2022 12:00 PM EDT documented in this encounter Progress Notes * Airam Murphy, LISHA - 10/26/2024 11:20 AM EDT Reason for Appointment: Patient ID: Nadine Wyatt is a 34 y.o. female who [...] deficit disorder) ADHD (attention deficit hyperactivity disorder) ([facility]) Anxiety Bacterial vaginosis Bipolar disorder Club foot Depression ([facility]) Female infertility Heart problem Hormone imbalance HISTORY PAST MEDICAL HISTORY SOCIAL HISTORY Past Medical History: Diagnosis Date Abscess ADD (attention deficit disorder) ADHD (attention deficit hyperactivity disorder) ([facility]) Anxiety Bacterial vaginosis Bipolar disorder Club foot Depression ([facility]) Female infertility Heart problem Heart Issue [...] Negative. Endocrine: Negative. Allergic/Immunologic: Negative. OBJECTIVE Objective: OBGyn Exam Vitals: Estimated body mass index is 27.34 kg/m?? as calculated from the following: Height as of 10/24/22: 5' 6 . Weight as of this encounter: 169 lb 6.4 oz. BP: 120/70 Patient's last menstrual period was 03/24/2024. ASSESSMENT & PLAN ICD-10-CM 1. 30 weeks gestation of Z3A.30 POCT urinalysis dipstick manually resulted US biophysical profile w non stress test US OB follow up transabdominal approach 2. Third trimester Z34.93 POCT urinalysis dipstick manually resulted US biophysical profile w non stress test US OB follow up transabdominal approach 3. Christiano cisterna magna (CMS/HCC) Q04.9 US biophysical profile w non stress test US OB follow up transabdominal approach 4. 28 weeks gestation of Z3A.28 US biophysical profile w non stress test US OB follow up transabdominal approach 5. SGA (small for gestational age) P05.10 US OB follow up transabdominal approach Patient presents today for a routine obstetrics appointment. Patient is currently 30w6d with a Estimated Date of Delivery: 12/29/24. Patient given orders for NST/BPP to be started at [facility] for SGA. Patient to return to clinic in 2 weeks. Documented by Airam Murphy LPN... on behalf of: Cuong Ortiz DO documented in this encounter Plan of Treatment Upcoming Encounters Date Type Department Care Team (Late st Contact Info) Description 11/10/2024 11:00 AM EDT Routine [facility] [address] [place] [address] Cuong Ortiz DO [address] [place] [address] Scheduled Orders Name Type Priority Associated Diagnoses Orde r Schedule US biophysical profile w non stress test Imaging Routine 30 weeks gestation of Third trimester Christiano cisterna magna (CMS/HCC) 28 weeks gestation of Expected: 10/26/2024 (Approximate), Expires: 04/28/2025 US OB follow up transabdominal approach Imaging Routine 30 weeks gestation of Third trimester Christiano cisterna magna (CMS/HCC) 28 weeks gestation of SGA (small for gestational age) Expected: 10/26/2024, Expires: 02/26/2025 documented as of this encounter Goals Goal Patient Goal Type Associated Problems Recent Progress Patient-Stated? Author Reminders Care Plan OB Reminders No Open Scheduling, Background documented as of this encounter Procedures Procedure Name Priority Date/Time Associated Diagnosis Comments POCT URINALYSIS DIPSTICK Routine 10/26/2024 11:52 AM EDT 30 weeks gestation of Third trimester documented in this encounter Results * (ABNORMAL) POCT urinalysis dipstick manually resulted (10/26/2024 11:52 AM EDT) Color, UA Yellow Clarity, UA Clear Glucose, UA Negative Negative - 2000(110) ++++ mg/dL Bilirubin, UA Negative Negative - 4(70) +++ mg/dL Ketones, UA Negative Negative - 160(16) ++++ mg/dL Spec Grav, UA 1.015 1 - 1.03 Blood, UA Positive Negative - 50 Rakesh/mcL Comment:trace-intact pH, UA 7.0 5 - 9 Protein, UA Negative Negative - 2000(20) ++++ mg/dL Urobilinogen, UA 0.2 0.2 - 12 mg/dL Leukocytes, UA Positive Negative - 500+++ Matti/mcL Comment:small Nitrite, UA Negative Negative - Positive Urine 10/26/2024 11:5 2 AM EDT us Cuong Ortiz DO POINT OF CARE TEST ENTER/EDIT OR DERABLES Final Result documented in this encounter Visit Diagnoses Diagnosis 30 weeks gestation of Third trimester state, incidental Christiano cisterna magna (CMS/HCC) 28 weeks gestation of SGA (small for gestational age) Nknyc-abg-cypmw without mention of malnutrition, unspecified (weight) documented in this encounter Additional Health Concerns Active Problems Noted Date Diagnosed Date OB Reminders 06/23/2024 documented as of this encounter Care Teams Nephrology Social Worker Relationship Specialty Start Date End Date Unallocated, Noms Provider, [address] [place] [address] PCP - General 03/04/23 Jaime Wyatt PA [address] [place] [address] Referring Physician Physical Medicine and Rehabilitation 03/04/23 documented as of this encounter
--- OUTSIDE RECORDS SUMMARY | 2024-11-06 10:06 | XMS_ITS | Encounter Summary ---
Author Organization [facility] Address [address] [facility] [place] [address] Care Team Providers Care Geological Technician Name Role Phone Yoselin Jaime FERMIN Unavailable Unallocated, Noms Provider Primary Care Provi kwabena Encounter Details Date Type Department Care Team (Late st Contact Info) Description 08/28/2024 Abstract [facility] OB [address] [place] [address] Cuong Ortiz DO [facility] [address] [place], [place] [address] Social History Tobacco Use Types Packs/Day Years [...] on file documented as of this encounter Plan of Treatment Upcoming Encounters Date Type Department Care Team (Late st Contact Info) Description 11/10/2024 11:00 AM EDT Routine [facility] OB [address] [place] [address] Cuong Ortiz DO [address] [place] [address] documented as of this encounter Goals Goal Patient Goal Type Associated Problems Recent Progress Patient-Stated? Author Reminders Care Plan OB Reminders No Open Scheduling, Background documented as of this encounter Visit Diagnoses Not on filedocumented in this encounter Additional Health Concerns Active Problems Noted Date Diagnosed Date OB Reminders 06/23/2024 documented as of this encounter Care Teams Geological Technician Relationship Specialty Start Date End Date Unallocated, Noms Provider, [address] [place] [address] PCP - General 03/04/23 Jaime Wyatt PA [address] [place] [address] Referring Physician Physical Medicine and Rehabilitation 03/04/23 documented as of this encounter
--- OUTSIDE RECORDS SUMMARY | 2024-11-06 10:07 | XMS_ITS | Encounter Summary ---
Author Organization [facility] Address [address] [facility] [place] [address] Care Team Providers Care Firebrick Layer Helper Name Role Phone Yoselin Jaime FERMIN Unavailable Unallocated, Noms Provider Primary Care Provi kwabena Encounter Details Date Type Department Care Team (Late st Contact Info) Description 05/19/2024 Clinisync Result Encounter [facility] External Department Unsolicited Dave Ortiz, [facility] [place], [place] [address] Social History Tobacco Use Types Packs/Day Years Used Date Smoking Tobacco: Never Alcohol Use Standard Drinks/Week Comments Never 0 (1 standard drink = 0.6 oz pur e alcohol) Comments No Sex and Gender Information Value Date Recorded Sex Assigned at Not on file Legal Sex Female 11:47 PM EDT Gender Identity Not on file Sexual Orientation Not on file documented as of this encounter Plan of Treatment Upcoming Encounters Date Type Department Care Team (Late st Contact Info) Description 11/10/2024 11:00 AM EDT Routine [facility] OB [address] [place] [id number] Dave Ortiz DO [facility] [place] [address] documented as of this encounter Procedures Procedure Name Priority Date/Time Associated Diagnosis Comments US OB TRANSVAGINAL 05/19/2024 7: 24 AM EST documented in this encounter Results * US OB TRANSVAGINAL (05/19/2024 7:24 AM EST) Anatomical Region Laterality Modality Other 05/19/2024 7:24 AM EST Narrative 05/19/2024 7:27 [place] [address] Ultrasound Report Signed Patient: ZULEIKA WADDELL MR#: [id number] : 1990 Acct:[id number] Age/Sex: 34 / F ADM Date: 05/18/24 Loc: US Attending Dr: Dave Ortiz D.O. Ordering Physician: Dave Ortiz D.O. Date of Service: 05/18/24 Procedure(s): US OB transvaginal Accession Number(s): [id number] cc: Dave Ortiz D.O.; YoselinJaime [place] [address] Patient Name: ZULEIKA WADDELL MRN: [id number] date: 1990 Sex: F Assigned Patient Location: US Current Patient Location: Accession/Order Number: [id number] Exam Date: 05/18/2024 17:15 Report Date: 05/19/2024 07:24 At the request of: DAVE ORTIZ Procedure: US OB transvaginal EXAMINATION: US OB transvaginal HISTORY: MISSED MENSES N92.6 COMPARISON: No relevant comparison available. FINDINGS: Blakely intrauterine gestation Gestational sac: 2.92 cm CRL: 1.57 cm, 8 weeks 0 days Yolk sac: 2.6 mm Heart rate: 162 bpm Cervix: Closed, 4.7 cm The uterus is normal, anteverted The right ovary measures 2.5 x 1.6 x 1.9 cm. 1.1 cm hypoechoic area likely corpus luteal cyst Left ovary measures 3.1 x 1.4 x 1.9 cm. Areas of anechoic echogenicity cervix likely cysts Clinical age: 7 weeks 6 days Clinical HUGO: 12/29/2024 Ultrasound age: 8 weeks 0 days Ultrasound HUGO: 12/28/2024 US/US OB transvaginal IMPRESSION: Viable blakely intrauterine gestation measuring 8 weeks 0 days Electronically authenticated by: GAMALIEL CRUMP Date: 05/19/2024 07:24 Dictated By: Gamaliel Crump M.D. Signed By: 05/19/24726 DD/ 3 TD/TT: Group Fitness Instructor: Procedure Note Radiology, Radiologist, - 05/19/2024 [place] [address] Ultrasound Report Signed Patient: ZULEIKA WADDELL LMR#: [id number] : 1990Acct:[id number] Age/Sex: 34 / FADM Date: 05/18/24 Loc: US Attending Dr: Dave Ortiz D.O. Ordering Physician: Dave Ortiz D.O. Date of Service: 05/18/24 Procedure(s): US OB transvaginal Accession Number(s): [id number] cc: Dave Ortiz D.O.; Jaime Waddell [place] [id number] Patient Name: ZULEIKA WADDELL MRN: [id number] date: 1990 Sex: F Assigned Patient Location: US Current Patient Location: Accession/Order Number: [id number] Exam Date: 05/18/2024 17:15 Report Date: 05/19/2024 07:24 At the request of: DAVE ORTIZ Procedure: US OB transvaginal EXAMINATION: US OB transvaginal HISTORY: MISSED MENSES N92.6 COMPARISON: No relevant comparison available. FINDINGS: Blakely intrauterine gestation Gestational sac: 2.92 cm CRL: 1.57 cm, 8 weeks 0 days Yolk sac: 2.6 mm Heart rate: 162 bpm Cervix: Closed, 4.7 cm The uterus is normal, anteverted The right ovary measures 2.5 x 1.6 x 1.9 cm. 1.1 cm hypoechoic area likely corpus luteal cyst Left ovary measures 3.1 x 1.4 x 1.9 cm. Areas of anechoic echogenicitycervix likely cysts Clinical age: 7 weeks 6 days Clinical HUGO: 12/29/2024 Ultrasound age: 8 weeks 0 days Ultrasound HUGO: 12/28/2024 US/US OB transvaginal IMPRESSION: Viable blakely intrauterine gestation measuring 8 weeks 0 days Electronically authenticated by: GAMALIEL CRUMP Date: 05/19/2024 07:24 Dictated By: Gamaliel Crump M.D. Signed By:05/19/24726 DD/ 3 TD/TT: Group Fitness Instructor: us Dave Diana DO [facility] Final Result documented in this encounter Visit Diagnoses Not on filedocumented in this encounter Care Teams Firebrick Layer Helper Relationship Specialty Start Date End Date Unallocated, Noms Provider, [address] [place] [address] PCP - General 03/04/23 Jaime Waddell PA [address] [place] [address] Referring Physician Physical Medicine and Rehabilitation 03/04/23 documented as of this encounter
--- OUTSIDE RECORDS SUMMARY | 2024-11-06 10:07 | XMS_ITS | Encounter Summary ---
Author Organization [facility] Address [address] [facility] [place] [address] Care Team Providers Care Hydrogen Plant Operations Manager Name Role Phone Yoselin Jaime FERMIN Unavailable Unallocated, Noms Provider Primary Care Provi kwabena Encounter Details Date Type Department Care Team (Late st Contact Info) Description 06/06/2023 Abstract [facility] OB [address] [place] [phone] Destinee Vazquez LPN [address] [facility] [address] [place] [address] Social History Tobacco Use Types Packs/Day Years Used Date Smoking Tobacco: Never Alcohol Use Standard Drinks/Week Comments Never 0 (1 standard drink = 0.6 oz pur e alcohol) Comments Yes Sex and Gender Information Value Date Recorded Sex Assigned at Not on file Legal Sex Female 11:47 PM EDT Gender Identity Not on file Sexual Orientation Not on file documented as of this encounter Plan of Treatment Upcoming Encounters Date Type Department Care Team (Late st Contact Info) Description 11/10/2024 11:00 AM EDT Routine [facility] OB [address] [place] [address] Cuong Ortiz DO [address] [facility] [address] [place] [id number] documented as of this encounter Visit Diagnoses Not on filedocumented in this encounter Care Teams Hydrogen Plant Operations Manager Relationship Specialty Start Date End Date Unallocated, Noms Provider, [address] [place], [place] [id number] PCP - General 03/04/23 Jaime Wyatt PA [address] [place], [place] [id number] Referring Physician Physical Medicine and Rehabilitation 03/04/23 documented as of this encounter
--- OUTSIDE RECORDS SUMMARY | 2024-11-06 10:07 | XMS_ITS | Encounter Summary ---
Author Organization [employer] Address [id number] [address] 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 Procedures [facility] with or without consult Dave Ortiz DO Phone: tel: fax: Maternal- Medicine at [address] [address] Phone: tel: fax: Referral ID Status Reason Start Date Expiration Date V isits Requested Visits Authorized [id number] Pending Review 08/27/2024 08/27/2025 1 1 Encounter Details Date Type Department Care Team (Late st Contact Info) Description 08/27/2024 Orders Only Maternal- Medicine at [address] [address] Beronica Minaya CMA 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 , 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 (Primary Dx) Social History Tobacco Use Types Packs/Day Years Used Date Smoking Tobacco: Never Smokeless Tobacco: Never Alcohol Use Standard Drinks/Week Comments No 0 (1 standard drink = 0.6 oz pur e alcohol) AUDIT-C Answer Date Recorded Frequency of Alcohol Consumption Never 03/18/2018 Average Number of Drinks Not on file 018 Frequency of Binge Drinking Not on file 07/2017 PHQ-2 Answer Date Recorded Total Score 0 05/02/2022 Childcare Answer Date Recorded Childcare Unknown 11/26/2018 Employment Answer Date Recorded Employment Unknown 11/26/2018 Purpose - Life Answer Date Recorded Purpose and direction in life Unknown Estimated Date of Delivery Comme nts Yes 12/29/2024 Based on last me nstrual period of 03/24/2024 Sex and Gender Information Value Date Recorded Sex Assigned at Not on file Legal Sex Female 11:46 AM EDT Gender Identity Not on file Sexual Orientation Not on file documented as of this encounter Plan of Treatment Upcoming Encounters Date Type Department Care Team (Late st Contact Info) Description 11/16/2024 1:00 PM EDT Appointment [facility] US Imaging [address] [place] [address] 11/16/2024 2:30 PM EDT Office Visit Maternal- Medicine at [facility] [address] [place] [address] Trav Fatima MD [address] [address] [place] [address] documented as of this encounter Procedures Procedure Name Priority Date/Time Associated Diagnosis Comments ULTRASOUND OFFICE Routine 08/27/2024 8:47 AM EDT UNLISTED LAB TEST Routine 06/29/2024 8:45 AM EST documented in this encounter Results * [facility] COMPREHENSIVE ANATOMIC SURVEY (08/27/2024 2:35 PM EDT) Anatomical Region Laterality Modality OB-TUBE DISPATCHER Ultrasound 08/27/2024 1:30 PM EDT Narrative 08/27/2024 5:23 PM EDT NAME: YOSELIN TO : 1990 SEX: F Accession Number: [id number] ORDERING PHYSICIAN: DAVE ORTIZ REFERRING PHYSICIAN: DAVE ORTIZ Coding ----- --------- Procedures 64675: Ultrasound, uterus, real time with image documentation, and maternal evaluation plus detailed anatomic examination, transabdominal approach;single or first gestation 65772: Transvaginal Ultrasound (OB) Indication ----- --------- Screening for Anatomic Survey , Screening for cervical length , Chronic hypertension affecting , History of prior with delivery, Supervision of high risk - MOB alcohol syndrome, 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 Para 4 [id number] Current ----- --------- Cell free DNA Low Risk analysis Maternal Assessment ----- --------- Physical Exam Height 165 cm, 5 ft 5 in. Weight 74 kg, 163 lb. BMI 27.12 kg/m Method ----- --------- Transabdominal and transvaginal ultrasound examination. View: Suboptimal view: limited by position ----- --------- Briscoe . Number of fetuses: 1 Dating ----- --------- LMP on: 03/24/2024 GA by LMP 22 w + 2 d HUGO by LMP: 12/29/2024 Ultrasound examination on: 08/27/2024 GA by U/S based upon: AC, BPD, Femur, HC GA by U/S 21 w + 6 d HUGO by U/S: 01/01/2025 Assigned: based on the LMP, selected on 08/27/2024 Assigned GA 22 w + 2 d Assigned HUGO: 12/29/2024 General Evaluation ----- --------- Cardiac activity Present. FHR 141 bpm. Presentation: cephalic Placenta: Placental site: anterior, away from cervical os Umbilical cord: Cord vessels: 3 vessel cord. Insertion site: normal insertion Amniotic fluid: Amount of AF: normal amount Biometry ----- --------- BPD 51.0 mm 21w 3d 17% Hadlock OFD 73.2 mm 24w 2d 95% Gurdeep HC 199.0 mm 22w 0d 29% Hadlock Cerebellum tr 23.4 mm 21w 4d 53% Hill Nuchal fold 5.0 mm AC 164.8 mm 21w 4d 20% Hadlock Femur 38.5 mm 22w 2d 41% Hadlock Humerus 36.0 mm 22w 4d 52% Gurdeep HC / AC 1.21 Weight Calculation: EFW 459 g 25% Hadlock EFW (lb,oz) 1 lb 0 oz EFW by Hadlock ([id number]) Head / Face / Neck Biometry: Cephalic index 0.70 <1% Nicolaides Slasher Runner 6.1 mm CM 9.9 mm >99% Nicolaides Inner IOD 13.0 mm Outer IOD 33.1 mm Nasal bone 7.6 mm Extremities / Bony Struc Biometry: FL / BPD 0.75 FL / HC 0.19 FL / AC 0.23 Tibia 34.4 mm 22w 6d 70% Gurdeep Anatomy ----- --------- The following structures appear abnormal: Head/Neck: Cisterna magna: enlarged. The following structures appear normal: Head / Neck Cranium. Lateral ventricles. Choroid plexus. Midline falx. Cavum septi pellucidi. Cerebellum. Parenchyma. Vermis. Face: Lips. Profile. Nose. Nasal bone. Orbits. Heart/Thorax: RVOT view. LVOT view. 3-vessel view. Situs. Aortic arch view. Ductal arch view. Cardiac position. Cardiac axis. Cardiac size. Cardiac rhythm. Right lung. Left lung. Abdomen: Abdom. wall. Cord insertion. Stomach. Kidneys. Bladder. Small bowel. Large bowel. Right renal artery. Left renal artery. Genitals. Spine: Cervical spine. Thoracic spine. Lumbar spine. Sacral spine. Extremities/Skeleton: Right upper arm. Right forearm. Left upper arm. Left forearm. Left hand. Right upper leg. Right lower leg. Right foot. Left upper leg. Left lower leg. The following structures could not be adequately visualized: Face Maxilla. Mandible. Heart / Thorax 4-chamber view. Bicaval view. Interventricular septum. Great vessels. Diaphragm. Extremities / Left foot. Skeleton The following structures could not be examined: Head / Neck Neck. Heart / Thorax 9-xgusze-yoahhlw view. Extremities / Right hand. Skeleton Maternal Structures ----- --------- Uterus Visualized Cervix Visualized Approach - Transvaginal: Cervical length 4.52 cm Right Ovary Visualized Size 29 mm x 21 mm x 17 mm. Vol 5.6 cm Left Ovary Visualized Size 24 mm x 27 mm x 13 mm. Vol 4.4 cm Cul de Sac Visualized. No free fluid visualized Impression ----- --------- Single viable intrauterine consistent with 22w 2d with an HUGO of 12/29/2024. Transvaginal cervical length measures 4.52 cm. Enlarged cisterna magna visualized measuring 1.01 cm. Recommendations ----- --------- Please see [facility] documentation from today. The patient is scheduled in four to six week(s) to complete anatomic survey. Subsequent follow up or other follow up as clinically determined by primary OB provider unless otherwise specified by [facility]. Results forwarded to ordering provider so they can follow up with the patient as necessary. Procedure Note Alyson Packer MD - 08/27/2024 NAME: YOSELIN TO : 1990 SEX: F Accession Number: [id number] ORDERING PHYSICIAN: DAVE ORTIZ REFERRING PHYSICIAN: DAVE ORTIZ Coding ----- --------- Procedures [id number]: Ultrasound, uterus, real time with imagedocumentation, and maternal evaluation plus detailed anatomic examination, transabdominalapproach;single or first gestation 34730: Transvaginal Ultrasound (OB) Indication ----- --------- Screening for Anatomic Survey , Screening for cervical length , Chronichypertension affecting , History of prior with delivery, Supervision of high risk - MOBfetal alcohol syndrome, 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 Para 4 [id number] Current ----- --------- Cell free DNA Low Risk analysis Maternal Assessment ----- --------- Physical Exam Height 165 cm, 5 ft 5 in. Weight 74 kg, 163 lb. BMI 27.12kg/m Method ----- --------- Transabdominal and transvaginal ultrasound examination. View: Suboptimalview: limited by position ----- --------- Briscoe . Number of fetuses: 1 Dating ----- --------- LMP on: 03/24/2024 GA by LMP 22 w + 2 d HUGO by LMP: 12/29/2024 Ultrasound examination on: 08/27/2024 GA by U/S based upon: AC, BPD, Femur, HC GA by U/S 21 w + 6 d HUGO by U/S: 01/01/2025 Assigned: based on the LMP, selected on 08/27/2024 Assigned GA 22 w + 2 d Assigned HUGO: 12/29/2024 General Evaluation ----- --------- Cardiac activity Present. FHR 141 bpm. Presentation: cephalic Placenta: Placental site: anterior, away from cervical os Umbilical cord: Cord vessels: 3 vessel cord. Insertion site: normalinsertion Amniotic fluid: Amount of AF: normal amount Biometry ----- --------- BPD 51.0 mm 21w 3d 17% Hadlock OFD 73.2 mm 24w 2d 95% Gurdeep HC 199.0 mm 22w 0d 29% Hadlock Cerebellum tr 23.4 mm 21w 4d 53% Hill Nuchal fold 5.0 mm AC 164.8 mm 21w 4d 20% Hadlock Femur 38.5 mm 22w 2d 41% Hadlock Humerus 36.0 mm 22w 4d 52% Gurdeep HC / AC 1.21 Weight Calculation: EFW 459 g 25% Hadlock EFW (lb,oz) 1 lb 0 oz EFW by Hadlock ([id number]-FL) Head / Face / Neck Biometry: Cephalic index 0.70 <1% Nicolaides Slasher Runner 6.1 mm CM 9.9 mm >99% Nicolaides Inner IOD 13.0 mm Outer IOD 33.1 mm Nasal bone 7.6 mm Extremities / Bony Struc Biometry: FL / BPD 0.75 FL / HC 0.19 FL / AC 0.23 Tibia 34.4 mm 22w 6d 70% Gurdeep Anatomy ----- --------- The following structures appear abnormal: Head/Neck: Cisterna magna: enlarged. The following structures appear normal: Head / Neck Cranium. Lateral ventricles. Choroid plexus. Midline falx.Cavum septi pellucidi. Cerebellum. Parenchyma. Vermis. Face: Lips. Profile. Nose. Nasal bone. Orbits. Heart/Thorax: RVOT view. LVOT view. 3-vessel view. Situs. Aortic archview. Ductal arch view. Cardiac position. Cardiac axis. Cardiac size. Cardiac rhythm. Right lung. Left lung. Abdomen: Abdom. wall. Cord insertion. Stomach. Kidneys. Bladder. Smallbowel. Large bowel. Right renal artery. Left renal artery. Genitals. Spine: Cervical spine. Thoracic spine. Lumbar spine. Sacral spine. Extremities/Skeleton: Right upper arm. Right forearm. Left upper arm. Leftforearm. Left hand. Right upper leg. Right lower leg. Right foot. Left upper leg. Left lower leg. The following structures could not be adequately visualized: Face Maxilla. Mandible. Heart / Thorax 4-chamber view. Bicaval view. Interventricular septum.Great vessels. Diaphragm. Extremities / Left foot. Skeleton The following structures could not be examined: Head / Neck Neck. Heart / Thorax 9-ewfgor-ypqpjoa view. Extremities / Right hand. Skeleton Maternal Structures ----- --------- Uterus Visualized Cervix Visualized Approach - Transvaginal: Cervical length 4.52 cm Right Ovary Visualized Size 29 mm x 21 mm x 17 mm. Vol 5.6 cm Left Ovary Visualized Size 24 mm x 27 mm x 13 mm. Vol 4.4 cm Cul de Sac Visualized. No free fluid visualized Impression ----- --------- Single viable intrauterine consistent with 22w 2d with an HUGO of12/29/2024. Transvaginal cervical length measures 4.52 cm. Enlarged cisterna magna visualized measuring 1.01 cm. Recommendations ----- --------- Please see [facility] documentation from today. The patient is scheduled in four to six week(s) to complete anatomicsurvey. Subsequent follow up or other follow up as clinically determined byprimary OB provider unless otherwise specified by [facility]. Results forwarded to ordering provider so they can follow up with thepatient as necessary. 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
--- OUTSIDE RECORDS SUMMARY | 2024-11-06 10:07 | XMS_ITS | Encounter Summary ---
Author Organization [facility] Address [address] [facility] [place] [address] Care Team Providers Care Swaging Machine Adjuster Name Role Phone YoselinJaime FERMIN Unavailable Unallocated, Noms Provider Primary Care Provi kwabena Encounter Details Date Type Department Care Team (Late Contact Info) Description 10/26/2024 Bamboo flowsheet [facility] OB [address] [place] [address] Cuong Ortiz DO [facility] [place] [address] Social History Tobacco Use Types Packs/Day Years [...] Encounters Date Type Department Care Team (Late Contact Info) Description 11/10/2024 11:00 AM EDT Routine [facility] OB [address] [place] [address] Cuong Ortiz DO [address] [place] [address] documented as of this encounter Goals Goal Patient Goal Type Associated Problems Recent Progress Patient-Stated? Author Reminders Care Plan OB Reminders No Open Scheduling, Background documented as of this encounter Visit Diagnoses Not on filedocumented in this encounter Additional Health Concerns Active Problems Noted Date Diagnosed Date OB Reminders 06/23/2024 documented as of this encounter Care Teams Swaging Machine Adjuster Relationship Specialty Start Date End Date Unallocated, Noms Provider, [address] [place] [address] PCP - General 03/04/23 Jaime Wyatt PA [address] [place] [address] Referring Physician Physical Medicine and Rehabilitation 03/04/23 documented as of this encounter
--- OUTSIDE RECORDS SUMMARY | 2024-11-06 10:07 | XMS_ITS | Encounter Summary ---
Author Organization [facility] Address [address] [facility] [place] [address] Care Team Providers Care Cigar Maker Name Role Phone Yoselin Jaime FERMIN Unavailable Unallocated, Noms Provider Primary Care Provi kwabena Encounter Details Date Type Department Care Team (Late st Contact Info) Description 10/26/2024 Clinisync Result Encounter [facility] External Department Unsolicited Cuong Ortiz, DO [address] [place] [address] Social History Tobacco Use Types Packs/Day Years [...] Description 11/10/2024 11:00 AM EDT Routine [facility] OB [address] [place] [id number] Cuong Ortiz, DO [address] [place] [address] documented as of this encounter Goals Goal Patient Goal Type Associated Problems Recent Progress Patient-Stated? Author Reminders Care Plan OB Reminders No Open Scheduling, Background documented as of this encounter Procedures Procedure Name Priority Date/Time Associated Diagnosis Comments [facility] CMP (CMP) (FOR [facility]OTE [facility] USE) Routine 10/26/2024 12:52 PM EDT ALL CBC WITH AUTO DIFF Routine 10/26/2024 12:52 PM EDT documented in this encounter Results * (ABNORMAL) ALL CBC WITH AUTO DIFF (10/26/2024 12:52 PM EDT) [facility] WBC 10.2 4.0 - 11.0 10 3/uL TBH TB[facility] RBC 3.93(L) 4.20 - 5.40 10 6/uL TBH TBH HGB 10.6(L) 12.0 - 16.0 g/dL TBH TBH HCT 32.6(L) 36.0 - 48.0 % TBH TBH MCV 83.0 81.0 - 99.0 fL TBH TBH MCH 27.0 26.7 - 34.0 pg TBH TBH MCHC 32.5 29.9 - 35.2 g/dL TBH TBH RDW 13.6 11.0 - 15.0 % TBH TBH PLT 189 150 - 450 10 3/uL TBH TBH MPV 9.6 9.5 - 13.5 fL TBH NEUTROPHILS PERCENT AUTO 75.4(H) 43.0 - 75.0 % TBH LYMPHOCYTES PERCENT AUTO 15.4(L) 20.5 - 60.0 % TBH MONOCYTES PERCENT AUTO 6.6 1.7 - 12.0 % TBH TBH EO % 0.8(L) 0.9 - 7.0 % TBH BASOPHILS PERCENT AUTO 0.3 0.2 - 2.0 % TBH IMMATURE GRANULOCYTES PCT AUTO 1.5(H) 0.0 - 0.5 % TBH NEUTROPHILS ABSOLUTE AUTO 7.7(H) 1.4 - 6.5 10 3/uL TBH LYMPHOCYTES ABSOLUTE AUTO 1.6 1.2 - 3.8 10 3/uL TBH MONOCYTES ABSOLUTE AUTO 0.7 0.3 - 0.8 10 3/uL TBH TBH EO # 0.1 0.0 - 0.7 10 3/uL TBH BASOPHILS ABSOLUTE AUTO 0.0 0.0 - 0.1 10 3/uL TB[facility] IMMATURE GRANULOCYTES ABS AUTO 0.15(H) 0.00 - 0.03 10 3/uL TBH 10/26/2024 12:5 2 PM EDT 10/26/2024 12:53 PM EDT Narrative [facility] - 10/26/2024 1:51 PM EDT us Cuong Diana DO [facility] Final Result [facility] * (ABNORMAL) [facility] CMP (CMP) (FOR [facility] USE) (10/26/2024 12:52 PM EDT) SODIUM 134(L) 136 - 145 mmol/L TBH POTASSIUM 4.1 3.5 - 5.1 mmol/L TBH CHLORIDE 102 98 - 107 mmol/L TBH CARBON DIOXIDE 24.0 21.0 - 32.0 mmol/L TBH ANION GAP 12.1 TBH GLUCOSE 82 74 - 106 mg/dL TBH BLOOD UREA NITROGEN 6.0(L) 7.0 - 18.0 mg/dL TBH CREATININE 0.55 0.55 - 1.02 mg/dL TBH TBH EGFR-AF IRISH >60 >=60 mL/min/1. 73m 2 TBH TBH EGFR-NON AF IRISH >60 >=60 mL/min/1. 73m 2 TBH BUN CREATININE RATIO 10.9 TBH CALCIUM 8.8 8.5 - 10.1 mg/dL TBH BILIRUBIN TOTAL 0.8 0.2 - 1.0 mg/dL TBH ASPARTATE AMINO TRANSFERASE 15 15 - 37 U/L TBH ALANINE AMINOTRANSFERASE 14 14 - 59 U/L TBH ALKALINE PHOSPHATASE 86 46 - 116 U/L TBH TOTAL PROTEIN 6.9 6.4 - 8.2 g/dL TBH ALBUMIN LEVEL 2.6(L) 3.4 - 5.0 g/dL TBH GLOBULIN 4.3 g/dL TBH ALBUMIN GLOBULIN RATIO 0.6 TBH 10/26/2024 12:5 2 PM EDT 10/26/2024 12:53 PM EDT Narrative [facility] - 10/26/2024 1:29 PM EDT us Cuong Eppso DO [facility] Final Result [facility] documented in this encounter Visit Diagnoses Not on filedocumented in this encounter Additional Health Concerns Active Problems Noted Date Diagnosed Date OB Reminders 06/23/2024 documented as of this encounter Care Teams Cigar Maker Relationship Specialty Start Date End Date Unallocated, Noms Provider, [address] [place] [address] PCP - General 03/04/23 Jaime Wyatt PA [address] [place] [address] Referring Physician Physical Medicine and Rehabilitation 03/04/23 documented as of this encounter
--- OUTSIDE RECORDS SUMMARY | 2024-11-06 10:07 | XMS_ITS | Encounter Summary ---
Author Organization [facility] Address [address] [facility] [place] [address] Care Team Providers Care Church History Teacher Name Role Phone Yoselin Jaime FERMIN Unavailable Unallocated, Noms Provider Primary Care Provi kwabena Encounter Details Date Type Department Care Team (Late st Contact Info) Description 10/16/2023 Clinisync Result Encounter [facility] External Department Unsolicited Dave Ortiz, DO [facility] [place], [place] [address] Social History Tobacco Use Types Packs/Day Years [...] Routine [facility] BCP OB [address] [place] [id number] Dave Ort[place] [address] documented as of this encounter Procedures Procedure Name Priority Date/Time Associated Diagnosis Comments US OB BPP W NON-STRESS 10/16/2023 3:05 PM EDT documented in this encounter Results * US OB BPP W NON-STRESS (10/16/2023 3:05 PM EDT) Anatomical Region Laterality Modality Other 10/16/2023 3:05 PM EDT Narrative 10/16/2023 3:08 [place] [address] Ultrasound Report Signed Patient: ZULEIKA WADDELL MR#: [id number] : 1990 Acct:[id number] Age/Sex: 33 / F ADM Date: 10/16/23 Loc: [facility] 250-[address]: Dave Ortiz D.O. Ordering Physician: Dave Ortiz D.O. Date of Service: 10/16/23 Procedure(s): US OB BPP w non-stress Accession Number(s): [id number] cc: Dave Ortiz D.O.; WaddellJaime [place] [address] Patient Name: ZULEIKA WADDELL MRN: [id number] date: 1990 Sex: F Assigned Patient Location: [facility] Current Patient Location: [facility] Accession/Order Number: [id number] Exam Date: 10/16/2023 14:10 Report Date: 10/16/2023 15:05 At the request of: DAVE ORTIZ Procedure: US OB BPP w non-stress EXAMINATION: US OB BPP w non-stress HISTORY: Family history of trisomy 13 Z82.79 COMPARISON: 10/09/2023 TECHNIQUE: Ultrasound biophysical profile was performed in the radiology department. non-reactive stress testing was performed by nursing staff in the birthing center. FINDINGS: BREATHING MOVEMENTS: 0.0 GROSS BODY MOVEMENTS: 2.0 TONE: 2.0 QUALITATIVE AMNIOTIC FLUID VOLUME: 2.0 PRESENTATION: CEPHALIC HEART RATE: 135.7 bpm H.B./min AMNIOTIC FLUID VOLUME: 11.1 cm cm GESTATIONAL AGE: 33 weeks 2 days CONCLUSION: Total biophysical profile score: 6/8 Electronically authenticated by: GAMALIEL CRUMP Date: 10/16/2023 15:05 Dictated By: Gamaliel Crump M.D. Signed By: 10/16/23 1508 DD/ 1505 TD/TT: Brake Tester: Procedure Note Radiology, Radiologist, - 10/16/2023 [place] [address] Ultrasound Report Signed Patient: ZULEIKA WADDELL LMR#: [id number] : 1990Acct:[id number] Age/Sex: 33 / FADM Date: 10/16/23 Loc: [facility] 250-[address]: Dave Ortiz D.O. Ordering Physician: Dave Ortiz D.O. Date of Service: 10/16/23 Procedure(s): US OB BPP w non-stress Accession Number(s): [id number] cc: Dave Ortiz D.O.; Jaime Waddell [place] [address] Patient Name: ZULEIKA WADDELL MRN: [id number] date: 1990 Sex: F Assigned Patient Location: [facility] Current Patient Location: [facility] Accession/Order Number: [id number] Exam Date: 10/16/2023 14:10 Report Date: 10/16/2023 15:05 At the request of: DAVE ORTIZ Procedure: US OB BPP w non-stress EXAMINATION: US OB BPP w non-stress HISTORY: Family history of trisomy 13 Z82.79 COMPARISON: 10/09/2023 TECHNIQUE: Ultrasound biophysical profile was performed in the radiology department. non-reactive stress testing was performed by nursingstaff in the birthing center. FINDINGS: BREATHING MOVEMENTS: 0.0 GROSS BODY MOVEMENTS: 2.0 TONE: 2.0 QUALITATIVE AMNIOTIC FLUID VOLUME: 2.0 PRESENTATION: CEPHALIC HEART RATE: 135.7 bpm H.B./min AMNIOTIC FLUID VOLUME: 11.1 cm cm GESTATIONAL AGE: 33 weeks 2 days CONCLUSION: Total biophysical profile score: 6/8 Electronically authenticated by: GAMALIEL CRUMP Date: 10/16/2023 15:05 Dictated By: Gamaliel Crump M.D. Signed By:10/16/23 1508 DD/ 1505 TD/TT: Brake Tester: us Dave Ortiz DO [facility] IMAGING Final Result documented in this encounter Visit Diagnoses Not on filedocumented in this encounter Care Teams Church History Teacher Relationship Specialty Start Date End Date Unallocated, Noms Provider, [address] [place], [place] [id number] PCP - General 03/04/23 Jaiem Waddell PA [address] [place] [address] Referring Physician Physical Medicine and Rehabilitation 03/04/23 documented as of this encounter
--- OUTSIDE RECORDS SUMMARY | 2024-11-06 10:07 | XMS_ITS | Encounter Summary ---
Author Organization [facility] Address [address] [facility] [place] [address] Care Team Providers Care Paper Cone Machine Operator Name Role Phone Yoselin Jaime FERMIN Unavailable Unallocated, Noms Provider Primary Care Provi kwabena Encounter Details Date Type Department Care Team (Late st Contact Info) Description 10/21/2023 Clinisync Result Encounter NOMS External Department Unsolicited Dave Ortiz, DO [facility] [place], [place] [address] Social History Tobacco Use Types Packs/Day Years [...] [facility]OMS BCP OB [address] [place] [id number] Dave Ortiz DO [facility] [place] [address] documented as of this encounter Procedures Procedure Name Priority Date/Time Associated Diagnosis Comments US OB BPP W NON-STRESS 10/21/2023 7:34 AM EDT documented in this encounter Results * US OB BPP W NON-STRESS (10/21/2023 7:34 AM EDT) Anatomical Region Laterality Modality Other 10/21/2023 7:34 AM EDT Narrative 10/21/2023 7:37 [place] [address] Ultrasound Report Signed Patient: ZULEIKA WADDELL MR#: [id number] : 1990 Acct:[id number] Age/Sex: 33 / F ADM Date: 10/19/23 Loc: FBAR Attending Dr: Dave Ortiz D.O. Ordering Physician: Dave Ortiz D.O. Date of Service: 10/19/23 Procedure(s): US OB BPP w non-stress Accession Number(s): [id number] cc: Dave Ortiz D.O.; Jaime Waddell [place] [address] Patient Name: ZULEIKA WADDELL MRN: TBH:[id number] date: 1990 Sex: F [place] [facility] [place] [facility] [place]ion/Order Number: [id number] Exam Date: 10/19/2023 14:53 Report Date: 10/21/2023 07:34 At the request of: DAVE ORTIZ Procedure: US OB BPP w non-stress EXAMINATION: US OB BPP w non-stress HISTORY: REPEAT BPP COMPARISON: 10/16/2023 TECHNIQUE: Ultrasound biophysical profile was performed in the radiology department. FINDINGS: BREATHING MOVEMENTS: 2.0 GROSS BODY MOVEMENTS: 2.0 TONE: 2.0 QUALITATIVE AMNIOTIC FLUID VOLUME: 2.0 PRESENTATION: CEPHALIC HEART RATE: 131.1 bpm H.B./min AMNIOTIC FLUID VOLUME: 17.1 cm cm GESTATIONAL AGE: 33 weeks 5 days CONCLUSION: Total biophysical profile score: 8.0 Electronically authenticated by: GAMALIEL CRUMP Date: 10/21/2023 07:34 Dictated By: Gamaliel Crump M.D. Signed By: 0537 DD/ 3 TD/TT: Scene Painter: Procedure Note Radiology, Radiologist, - 10/21/2023 The [place] [id number] Ultrasound Report Signed Patient: ZULEIKA WADDELL LMR#: [id number] : 1990Acct:[id number] Age/Sex: 33 / FADM Date: 10/19/23 Loc: FBCO Attending Dr: Dave Ortiz D.O. Ordering Physician: Dave Ortiz D.O. Date of Service: 10/19/23 Procedure(s): US OB BPP w non-stress Accession Number(s): [id number] cc: Dave Ortiz D.O.; Jaime Waddell [place] [id number] Patient Name: ZULEIKA WADDELL MRN: [facility]:[id number] date: 1990 Sex: F [place]igned [place] [facility] [place] [facility] [place]ion/Order Number: [id number] Exam Date: 10/19/2023 14:53 Report Date: 10/21/2023 07:34 At the request of: DAVE ORTIZ Procedure: US OB BPP w non-stress EXAMINATION: US OB BPP w non-stress HISTORY: REPEAT BPP COMPARISON: 10/16/2023 TECHNIQUE: Ultrasound biophysical profile was performed in the radiology department. FINDINGS: BREATHING MOVEMENTS: 2.0 GROSS BODY MOVEMENTS: 2.0 TONE: 2.0 QUALITATIVE AMNIOTIC FLUID VOLUME: 2.0 PRESENTATION: CEPHALIC HEART RATE: 131.1 bpm H.B./min AMNIOTIC FLUID VOLUME: 17.1 cm cm GESTATIONAL AGE: 33 weeks 5 days CONCLUSION: Total biophysical profile score: 8.0 Electronically authenticated by: GAMALIEL CRUMP Date: 10/21/2023 07:34 Dictated By: Gamaliel Crump M.D. Signed By:10/21/23 0737 DD/ 3 TD/TT: Scene Painter: us Dave Ortiz DO [facility] Final Result documented in this encounter Visit Diagnoses Not on filedocumented in this encounter Care Teams Paper Cone Machine Operator Relationship Specialty Start Date End Date Unallocated, Noms Provider, [address] [place] [address] PCP - General 03/04/23 Jaime Waddell PA [address] [place], [place] [phone] Referring Physician Physical Medicine and Rehabilitation 03/04/23 documented as of this encounter
--- OUTSIDE RECORDS SUMMARY | 2024-11-06 10:07 | XMS_ITS | Encounter Summary ---
Author Organization [facility] Address [address] [facility] [place] [address] Care Team Providers Care Muck Miner Blasting Name Role Phone YoselinJaime FERMIN Unavailable Unallocated, Noms Provider Primary Care Provi kwabena Encounter Details Date Type Department Care Team (Late st Contact Info) Description 11/03/2024 Clinisync Result Encounter [facility]OMS External Department Unsolicited Dave Ortiz, DO [address] [place] [address] Social History Tobacco Use Types Packs/Day Years [...] Description 11/10/2024 11:00 AM EDT Routine [facility] OB [address] [place] [phone] Dave Ortiz, DO [address] [place] [address] [phone] (work) documented as of this encounter Goals Goal Patient Goal Type Associated Problems Recent Progress Patient-Stated? Author Reminders Care Plan OB Reminders No Open Scheduling, Background documented as of this encounter Procedures Procedure Name Priority Date/Time Associated Diagnosis Comments US OB BPP W NON-STRESS 11/03/2024 3:31 PM EDT documented in this encounter Results * US OB BPP W NON-STRESS (11/03/2024 3:31 PM EDT) Anatomical Region Laterality Modality Other 11/03/2024 3:31 PM EDT Narrative 11/03/2024 3:33 [place] [address] Ultrasound Report Signed Patient: ZULEIKA WADDELL MR#: [id number] : 1990 Acct:[id number] Age/Sex: 34 / F ADM Date: 11/03/24 Loc: US Attending Dr: Dave Ortiz D.O. Ordering Physician: Dave Ortiz D.O. Date of Service: 11/03/24 Procedure(s): US OB BPP w non-stress Accession Number(s): [id number] cc: Dave Ortiz D.O.; Ramon Avila M.D. [address] [address] Patient Name: ZULEIKA WADDELL MRN: [id number] date: 1990 Sex: F Assigned Patient Location: Current Patient Location: Accession/Order Number: [id number] Exam Date: 11/03/2024 15:29 Report Date: 11/03/2024 15:31 At the request of: DAVE ORTIZ DO Procedure: US OB BPP w non-stress Ultrasound obstetrical biophysical profile HISTORY: Jeanerette cisterna magna. In adequate breathing movement. Adequate gross body movement, tone and amniotic fluid volume. Total score 6 out of 8. Amniotic fluid index 11.1 cm within normal limits. heart rate 148 bpm. US/US OB BPP w non-stress IMPRESSION: Suboptimal biophysical profile. Score 6 out of 8. Impression dictated by: Aaron Boyce M.D. 11/03/2024 3:31 PM Dictation Location: [place] [address] Electronically authenticated by: [id number] Y Date: 11/03/2024 15:31 Dictated By: Aaron Boyce D.O. Signed By: 11/03/24 1533 DD/ 1531 TD/TT: Opinion Polls Survey Worker: Procedure Note Radiology, Radiologist, MD - 11/03/2024 [place] [address] Ultrasound Report Signed Patient: ZULEIKA WADDELL LMR#: [id number] : 1990Acct:[id number] Age/Sex: 34 / FADM Date: 11/03/24 Loc: US Attending Dr: Dave Ortiz D.O. Ordering Physician: Dave Ortiz D.O. Date of Service: 11/03/24 Procedure(s): US OB BPP w non-stress Accession Number(s): [id number] cc: Dave Ortiz D.O.; Ramon Avila M.D. The [place] [id number] Patient Name: ZULEIKA WADDELL MRN: [id number] date: 1990 Sex: F Assigned Patient Location: Current Patient Location: Accession/Order Number: [id number] Exam Date: 11/03/2024 15:29 Report Date: 11/03/2024 15:31 At the request of: DAVE ORTIZ DO Procedure: US OB BPP w non-stress Ultrasound obstetrical biophysical profile HISTORY: Jeanerette cisterna magna. In adequate breathing movement. Adequate gross body movement, tone and amniotic fluid volume. Total score 6 out of 8. Amniotic fluidindex 11.1 cm within normal limits. heart rate 148 bpm. US/US OB BPP w non-stress IMPRESSION: Suboptimal biophysical profile. Score 6 out of 8. Impression dictated by: Aaron Boyce M.D. 11/03/2024 3:31 PM Dictation Location: [place] [address] Electronically authenticated by: [id number] Y Date: 5:31 Dictated By: Aaron Boyce D.O. Signed By:11/03/24 1533 DD/ 1531 TD/TT: Opinion Polls Survey Worker: us Dave Diana DO [facility] Final Result documented in this encounter Visit Diagnoses Not on filedocumented in this encounter Additional Health Concerns Active Problems Noted Date Diagnosed Date OB Reminders 06/23/2024 documented as of this encounter Care Teams Muck Miner Blasting Relationship Specialty Start Date End Date Unallocated, Noms Provider, [address] [place], [place] [address] PCP - General 03/04/23 Jaime Waddell PA [address] [place] [address] Referring Physician Physical Medicine and Rehabilitation 03/04/23 documented as of this encounter
--- OUTSIDE RECORDS SUMMARY | 2024-11-06 10:07 | XMS_ITS | Encounter Summary ---
Author Organization [facility] Address [address] [place] [address] Care Team Providers Care Equity Trader Name Role Phone Yoselin Jaime FERMIN Unavailable Unallocated, Noms Provider Primary Care Provi kwabena Encounter Details Date Type Department Care Team (Late st Contact Info) Description 10/30/2023 Clinisync Result Encounter [facility]OMS External Department Unsolicited Dave Ortiz, DO [facility] [place], [place] [address] Social History Tobacco Use Types Packs/Day Years [...] [facility] BCP OB [address] [place] [phone] Dave Ortiz [place] [address] documented as of this encounter Procedures Procedure Name Priority Date/Time Associated Diagnosis Comments US OB BPP W NON-STRESS 10/30/2023 3:23 PM EDT documented in this encounter Results * US OB BPP W NON-STRESS (10/30/2023 3:23 PM EDT) Anatomical Region Laterality Modality Other 10/30/2023 3:23 PM EDT Narrative 10/30/2023 3:25 [place] [address] Ultrasound Report Signed Patient: ZULEIKA WADDELL MR#: [id number] : 1990 Acct:[id number] Age/Sex: 33 / F ADM Date: 10/30/23 Loc: US Attending Dr: Dave Ortiz D.O. Ordering Physician: Dave Ortiz D.O. Date of Service: 10/30/23 Procedure(s): US OB BPP w non-stress Accession Number(s): [id number] cc: Dave Ortiz D.O.; Jaime Waddell [place] [address] Patient Name: ZULEIKA WADDELL MRN: [id number] date: 1990 Sex: F Assigned Patient Location: [facility] Current Patient Location: Accession/Order Number: [id number] Exam Date: 10/30/2023 14:45 Report Date: 10/30/2023 15:23 At the request of: DAVE ORTIZ Procedure: US OB BPP w non-stress EXAMINATION: US OB BPP w non-stress HISTORY: Family history of trisomy COMPARISON: No relevant comparison available. TECHNIQUE: Ultrasound biophysical profile was performed in the radiology department. non-reactive stress testing was performed by nursing staff in the birthing center. FINDINGS: BREATHING MOVEMENTS: 2.0 GROSS BODY MOVEMENTS: 2.0 TONE: 2.0 QUALITATIVE AMNIOTIC FLUID VOLUME: 2.0 PRESENTATION: CEPHALIC HEART RATE: 136.4 bpm H.B./min AMNIOTIC FLUID VOLUME: 11.5 cm cm GESTATIONAL AGE: 35 weeks 2 days CONCLUSION: Total biophysical profile score: 8.0 Electronically authenticated by: GAMALIEL CRUMP Date: 10/30/2023 15:23 Dictated By: Gamaliel Crump M.D. Signed By: 10/30/23 1525 DD/ 22 TD/TT: Improvement Spec: Procedure Note Radiology, Radiologist, - 10/30/2023 [place] [address] Ultrasound Report Signed Patient: ZULEIKA WADDELL LMR#: [id number] : 1990Acct:[id number] Age/Sex: 33 / FADM Date: 10/30/23 Loc: US Attending Dr: Dave Ortiz D.O. Ordering Physician: Dave Ortiz D.O. Date of Service: 10/30/23 Procedure(s): US OB BPP w non-stress Accession Number(s): [id number] cc: Dave Ortiz D.O.; Jaime Waddell [place] [address] Patient Name: ZULEIKA WADDELL MRN: [id number] date: 1990 Sex: F Assigned Patient Location: [facility] Current Patient Location: Accession/Order Number: [id number] Exam Date: 10/30/2023 14:45 Report Date: 10/30/2023 15:23 At the request of: DAVE ORTIZ Procedure: US OB BPP w non-stress EXAMINATION: US OB BPP w non-stress HISTORY: Family history of trisomy COMPARISON: No relevant comparison available. TECHNIQUE: Ultrasound biophysical profile was performed in the radiology department. non-reactive stress testing was performed by nursingstaff in the birthing center. FINDINGS: BREATHING MOVEMENTS: 2.0 GROSS BODY MOVEMENTS: 2.0 TONE: 2.0 QUALITATIVE AMNIOTIC FLUID VOLUME: 2.0 PRESENTATION: CEPHALIC HEART RATE: 136.4 bpm H.B./min AMNIOTIC FLUID VOLUME: 11.5 cm cm GESTATIONAL AGE: 35 weeks 2 days CONCLUSION: Total biophysical profile score: 8.0 Electronically authenticated by: GAMALIEL CRUMP Date: 10/30/2023 15:23 Dictated By: Gamaliel Crump M.D. Signed By:10/30/23 152 DD/ 22 TD/TT: Improvement Spec: us Dave Diana DO [facility] Final Result documented in this encounter Visit Diagnoses Not on filedocumented in this encounter Care Teams Equity Trader Relationship Specialty Start Date End Date Unallocated, Noms Provider, [address] [place] [address] PCP - General 03/04/23 Jaime Waddell PA [address] [place] [address] Referring Physician Physical Medicine and Rehabilitation 03/04/23 documented as of this encounter
--- OUTSIDE RECORDS SUMMARY | 2024-11-06 10:07 | XMS_ITS | Encounter Summary ---
Author Organization [facility] Address [address] [facility] [place] [address] Care Team Providers Care Retail Store Clerk Name Role Phone Yoselin Jaime FERMIN Unavailable Unallocated, Noms Provider Primary Care Provi kwabena Encounter Details Date Type Department Care Team (Late st Contact Info) Description 11/07/2023 Clinisync Result Encounter NOMS External Department Unsolicited Dave Ortiz, DO [facility] [place], [place] [address] Social History Tobacco Use Types Packs/Day Years [...] Routine [facility] BCP OB [address] [place] [phone] Dave Ortiz DO [facility] [place] [address] documented as of this encounter Procedures Procedure Name Priority Date/Time Associated Diagnosis Comments US OB BPP W NON-STRESS 11/07/2023 7:10 AM EDT documented in this encounter Results * US OB BPP W NON-STRESS (11/07/2023 7:10 AM EDT) Anatomical Region Laterality Modality Other 11/07/2023 7:10 AM EDT Narrative 11/07/2023 7:13 [place] [address] Ultrasound Report Signed Patient: ZULEIKA WADDELL MR#: [id number] : 1990 Acct:[id number] Age/Sex: 33 / F ADM Date: 11/06/23 Loc: US Attending Dr: Dave Ortiz D.O. Ordering Physician: Dave Ortiz D.O. Date of Service: 11/06/23 Procedure(s): US OB BPP w non-stress Accession Number(s): [id number] cc: Dave Ortiz D.O.; Jaime Waddell [place] [address] Patient Name: ZULEIKA WADDELL MRN: [id number] date: 1990 Sex: F Assigned Patient Location: Current Patient Location: [facility] Accession/Order Number: [id number] Exam Date: 11/06/2023 14:19 Report Date: 11/07/2023 07:10 At the request of: DAVE ORTIZ Procedure: [...] FLUID VOLUME: 2.0 PRESENTATION: CEPHALIC HEART RATE: 150.0 bpm H.B./min AMNIOTIC FLUID VOLUME: 11.9 cm cm GESTATIONAL AGE: 36 weeks 2 days CONCLUSION: Total biophysical profile score: 8.0 Electronically authenticated by: GAMALIEL CRUMP Date: 11/07/2023 07:10 Dictated By: Gamaliel Crump M.D. Signed By: 11/07/23712 DD/ 9 TD/TT: Petroleum Products District Supervisor: Procedure Note Radiology, Radiologist, - 11/07/2023 [place] [address] Ultrasound Report Signed Patient: ZULEIKA WADDELL LMR#: [id number] : 1990Acct:[id number] Age/Sex: 33 / FADM Date: 11/06/23 Loc: US Attending Dr: Dave Ortiz D.O. Ordering Physician: Dave Ortiz D.O. Date of Service: 11/06/23 Procedure(s): US OB BPP w non-stress Accession Number(s): [id number] cc: Dave Ortiz D.O.; Jaime Waddell [place] [id number] Patient Name: ZULEIKA WADDELL MRN: [id number] date: 1990 Sex: F Assigned Patient Location: Current Patient Location: [facility] Accession/Order Number: [id number] Exam Date: 11/06/2023 14:19 Report Date: 11/07/2023 07:10 At the request of: DAVE ORTIZ Procedure: [...] FLUID VOLUME: 2.0 PRESENTATION: CEPHALIC HEART RATE: 150.0 bpm H.B./min AMNIOTIC FLUID VOLUME: 11.9 cm cm GESTATIONAL AGE: 36 weeks 2 days CONCLUSION: Total biophysical profile score: 8.0 Electronically authenticated by: GAMALIEL CRUMP Date: 11/07/2023 07:10 Dictated By: Gamaliel Crump M.D. Signed By:11/07/23712 DD/ 9 TD/TT: Petroleum [employer] District Supervisor: us Dave Diana DO [facility] Final Result documented in this encounter Visit Diagnoses Not on filedocumented in this encounter Care Teams Retail Store Clerk Relationship Specialty Start Date End Date Unallocated, Noms Provider, [address] [place], [place] [id number] PCP - General 03/04/23 Jaime Waddell PA [address] [place] [address] Referring Physician Physical Medicine and Rehabilitation 03/04/23 documented as of this encounter
--- OUTSIDE RECORDS SUMMARY | 2024-11-06 10:07 | XMS_ITS | Encounter Summary ---
Author Organization [facility] Address [address] [facility] [place] [address] Care Team Providers Care Steamship Agent Name Role Phone Yoselin Jaime FERMIN Unavailable Unallocated, Noms Provider Primary Care Provi kwabena Encounter Details Date Type Department Care Team (Late st Contact Info) Description 10/10/2023 Clinisync Result Encounter NOMS External Department Unsolicited Dave Ortiz, DO [facility] [place], [place] [address] Social History Tobacco Use Types Packs/Day Years [...] Routine [facility] BCP OB [address] [place] [phone] Dave Ortiz DO [facility] [place] [address] documented as of this encounter Procedures Procedure Name Priority Date/Time Associated Diagnosis Comments US OB BPP W NON-STRESS 10/10/2023 7:13 AM EDT documented in this encounter Results * US OB BPP W NON-STRESS (10/10/2023 7:13 AM EDT) Anatomical Region Laterality Modality Other 10/10/2023 7:13 AM EDT Narrative 10/10/2023 7:15 [place] [address] Ultrasound Report Signed Patient: ZULEIKA WADDELL MR#: [id number] : 1990 Acct:[id number] Age/Sex: 33 / F ADM Date: 10/09/23 Loc: US Attending Dr: Dave Ortiz D.O. Ordering Physician: Dave Ortiz D.O. Date of Service: 10/09/23 Procedure(s): US OB BPP w non-stress Accession Number(s): [id number] cc: Dave Ortiz D.O.; Jaime Waddell [place] [address] Patient Name: ZULEIKA WADDELL MRN: [id number] date: 1990 Sex: F Assigned Patient Location: US Current Patient Location: US Accession/Order Number: [id number] Exam Date: 10/09/2023 15:20 Report Date: 10/10/2023 07:13 At the request of: DAVE ORTIZ Procedure: US OB BPP w non-stress EXAMINATION: US OB BPP w non-stress HISTORY: Family history of trisomy Z82.79 COMPARISON: Ultrasound biophysical 06/28/2022 TECHNIQUE: Ultrasound biophysical profile was performed in the radiology department. BREATHING MOVEMENTS: 2.0 GROSS BODY MOVEMENTS: 2.0 TONE: 2.0 QUALITATIVE AMNIOTIC FLUID VOLUME: 2.0 PRESENTATION: CEPHALIC HEART RATE: 144.4 bpm bpm. AMNIOTIC FLUID VOLUME: 13.1 cm GESTATIONAL AGE: 32 weeks 2 days CONCLUSION: Total biophysical profile score 8.0. Electronically authenticated by: JALEN DAWN Date: 10/10/2023 07:13 Dictated By: Jalen Dawn M.D. Signed By: 04/714 DD/ 2 TD/TT: On Site Services Specialist: Procedure Note Radiology, Radiologist, - 10/10/2023 [place] [address] Ultrasound Report Signed Patient: ZULEIKA WADDELL LMR#: [id number] : 1990Acct:[id number] Age/Sex: 33 / FADM Date: 10/09/23 Loc: US Attending Dr: Dave Ortiz D.O. Ordering Physician: Dave Ortiz D.O. Date of Service: 10/09/23 Procedure(s): US OB BPP w non-stress Accession Number(s): [id number] cc: Dave Ortiz D.O.; Jaime Waddell The [place] [id number] Patient Name: ZULEIKA WADDELL MRN: [id number] date: 1990 Sex: F Assigned Patient Location: US Current Patient Location: US Accession/Order Number: [id number] Exam Date: 10/09/2023 15:20 Report Date: 10/10/2023 07:13 At the request of: DAVE ORTIZ Procedure: US OB BPP w non-stress EXAMINATION: US OB BPP w non-stress HISTORY: Family history of trisomy Z82.79 COMPARISON: Ultrasound biophysical 06/28/2022 TECHNIQUE: Ultrasound biophysical profile was performed in the radiology department. BREATHING MOVEMENTS: 2.0 GROSS BODY MOVEMENTS: 2.0 TONE: 2.0 QUALITATIVE AMNIOTIC FLUID VOLUME: 2.0 PRESENTATION: CEPHALIC HEART RATE: 144.4 bpm bpm. AMNIOTIC FLUID VOLUME: 13.1 cm GESTATIONAL AGE: 32 weeks 2 days CONCLUSION: Total biophysical profile score 8.0. Electronically authenticated by: JALEN DAWN Date: 10/10/2023 07:13 Dictated By: Jalen Dawn M.D. Signed By:10/10/23714 DD/ 2 TD/TT: On Site Services Specialist: us Dave Ortiz DO [facility] Final Result documented in this encounter Visit Diagnoses Not on filedocumented in this encounter Care Teams Steamship Agent Relationship Specialty Start Date End Date Unallocated, Noms Provider, [address] [place] [address] PCP - General 03/04/23 Jaime Waddell PA [address] [place] [address] Referring Physician Physical Medicine and Rehabilitation 03/04/23 documented as of this encounter
--- OUTSIDE RECORDS SUMMARY | 2024-11-06 10:07 | XMS_ITS | Encounter Summary ---
Author Organization [facility] Address [address] [place] [facility] [place] [address] Care Team Providers Care Plastic Fabricator Name Role Phone Yoselin Jaime FERMIN Unavailable Unallocated, Noms Provider Primary Care Provi kwabena Encounter Details Date Type Department Care Team (Late st Contact Info) Description 11/18/2023 Abstract [facility] BCP OB [address] [facility] [place] [id number] Destinee Vazquez LPN [address] [facility] [place] [address] Social History Tobacco Use Types Packs/Day Years [...] AM EDT Routine [facility] BCP OB [address] [facility] [place] [address] Cuong Ortiz DO [address] [facility] [address] [place] [phone] documented as of this encounter Visit Diagnoses Not on filedocumented in this encounter Care Teams Plastic Fabricator Relationship Specialty Start Date End Date Unallocated, Noms Provider, [address] [place], [place] [address] PCP - General 03/04/23 Jaime Wyatt PA [address] [place], [place] [phone] Referring Physician Physical Medicine and Rehabilitation 03/04/23 documented as of this encounter
--- OUTSIDE RECORDS SUMMARY | 2024-11-06 10:07 | XMS_ITS | Encounter Summary ---
Author Organization [facility] Address [address] [facility] [place] [address] Care Team Providers Care Emergency Physician Name Role Phone Yoselin Jaime FERMIN Unavailable Unallocated, N[facility] Provider Primary Care Provi kwabena Encounter Details Date Type Department Care Team (Late st Contact Info) Description 10/10/2023 Clinisync Result Encounter [facility] External Department Unsolicited Dave Ortiz, [facility] [place], [place] [address] Social History Tobacco Use Types Packs/Day Years [...] Routine [facility] [address] [place] [id number] Dave Ortiz [place] [facility] [place] [address] documented as of this encounter Procedures Procedure Name Priority Date/Time Associated Diagnosis Comments US OB GROWTH 10/10/2023 7:18 AM EDT documented in this encounter Results * US OB GROWTH (10/10/2023 7:18 AM EDT) Anatomical Region Laterality Modality Other 10/10/2023 7:18 AM EDT Narrative 10/10/2023 7:21 [place] [address] Ultrasound Report Signed Patient: ZULEIKA WADDELL MR#: [id number] : 1990 Acct:[id number] Age/Sex: 33 / F ADM Date: 10/09/23 Loc: US Attending Dr: Dave Ortiz D.O. Ordering Physician: Dave Ortiz D.O. Date of Service: 10/09/23 Procedure(s): US OB growth Accession Number(s): [id number] cc: Dave Ortiz D.O.; Jaime Waddell [place] [address] Patient Name: ZULEIKA WADDELL MRN: [id number] date: 1990 Sex: F Assigned Patient Location: [facility] Current Patient Location: US Accession/Order Number: [id number] Exam Date: 10/09/2023 15:20 Report Date: 10/10/2023 07:18 At the request of: DAVE ORTIZ Procedure: US OB growth EXAMINATION: US OB growth HISTORY: Family history of trisomy Z82.79 COMPARISON: Ultrasound OB transvaginal 04/26/2023 FINDINGS: Heart Rate: 144.4 bpm Number: 1.0 Position: CEPHALIC Amniotic Fluid Volume: 13.1 cm Maximum Vertical Pocket: 4.1 cm BIOMETRY: BPD: 7.8 cm cm; 31 weeks 2 days; 15% HC: 29.5 cmcm; 32 weeks 4 days ; 21% AC: 29.0 cm cm; 33 weeks 0 days; 71% FL: 6.3 cm cm; 32 weeks 4 days; 47% EFW: 2033.5 grams; 53% FL/AC: 21.7 FL/BPD: 80.9 HC/AC: 1.0 GESTATIONAL AGE: Age by EDC: 32 weeks 2 days HUGO by EDC: 12/02/2023 Age by US: 32 weeks 3 days HUGO by US: 12/01/2023 US/US OB growth IMPRESSION: 1. Single live intrauterine with growth detailed above. Electronically authenticated by: JALEN DAWN Date: 10/10/2023 07:18 Dictated By: Jalen Dawn M.D. Signed By: 10/10/23720 DD/ 7 TD/TT: Copy Center Operator: Procedure Note Radiology, Radiologist, MD - 10/10/2023 [place] [address] Ultrasound Report Signed Patient: ZULEIKA WADDELL LMR#: [id number] : 1990Acct:[id number] Age/Sex: 33 / FADM Date: 10/09/23 Loc: US Attending Dr: Dave Ortiz D.O. Ordering Physician: Dave Ortiz D.O. Date of Service: 10/09/23 Procedure(s): US OB growth Accession Number(s): [id number] cc: Dave Ortiz D.O.; Jaime Waddell [place] [address] Patient Name: ZULEIKA WADDELL MRN: [id number] date: 1990 Sex: F Assigned Patient Location: [facility] Current Patient Location: US Accession/Order Number: [id number] Exam Date: 10/09/2023 15:20 Report Date: 10/10/2023 07:18 At the request of: DAVE ORTIZ Procedure: US OB growth EXAMINATION: US OB growth HISTORY: Family history of trisomy Z82.79 COMPARISON: Ultrasound OB transvaginal 04/26/2023 FINDINGS: Heart Rate: 144.4 bpm Number: 1.0 Position: CEPHALIC Amniotic Fluid Volume: 13.1 cm Maximum Vertical Pocket: 4.1 cm BIOMETRY: BPD: 7.8 cm cm; 31 weeks 2 days; 15% HC: 29.5 cmcm; 32 weeks 4 days ; 21% AC: 29.0 cm cm; 33 weeks 0 days; 71% FL: 6.3 cm cm; 32 weeks 4 days; 47% EFW: 2033.5 grams; 53% FL/AC: 21.7 FL/BPD: 80.9 HC/AC: 1.0 GESTATIONAL AGE: Age by EDC: 32 weeks 2 days HUGO by EDC: 12/02/2023 Age by US: 32 weeks 3 days HUGO by US: 12/01/2023 US/US OB growth IMPRESSION: 1. Single live intrauterine with growth detailed above. Electronically authenticated by: JALEN DAWN Date: 10/10/2023 07:18 Dictated By: Jalen Dawn M.D. Signed By:10/10/23720 DD/ 7 TD/TT: Copy Center Operator: us Dave Diana DO [facility] Final Result documented in this encounter Visit Diagnoses Not on filedocumented in this encounter Care Teams Emergency Physician Relationship Specialty Start Date End Date Unallocated, Noms Prakash, [address] [place] [address] PCP - General 03/04/23 Jaime Waddell PA [address] [place], [place] [id number] Referring Physician Physical Medicine and Rehabilitation 03/04/23 documented as of this encounter
--- OUTSIDE RECORDS SUMMARY | 2024-11-06 10:07 | XMS_ITS | Clinical Summary ---
Author Organization [facility] Address [address] [facility] [place] [address] Care Team Providers Care Logistics Supply Officer Name Role Phone Wyatt Jaime FERMIN Unavailable Unallocated, Noms Provider Primary Care Provi kwabena Allergies Active Allergy Reactions Criticality Noted Date Comments Bee Pollen 08/13/2024 Other Reaction(s): Unknown Bee Venom 03/27/2022 Molds & Smuts 08/13/2024 Other Reaction(s): Unknown Penicillin G 08/13/2024 Other Reaction(s): Unknown Penicillins Hives 11/27/2013 Other Reaction(s): Unknown Other Reaction(s): Anaphylaxis Sulfa Antibiotics 08/23/2018 Other Reaction(s): Unknown Other Reaction(s): Rash Sulfamethoxazole 08/13/2024 Other Reaction(s): Unknown Medications Vit-Fe Fumarate-FA (PNV Plus Multivitamin) 27-1 MG tabletIndication s:First trimester Take 1 tablet by mouth Daily 30 tablet 11 04/29/2024 Active Active Problems Problem Noted Date Diagnosed Date Family history of trisomy 13 09/30/2023 Estimated Date of Delivery Comme nts Yes 12/29/2024 Based on last me nstrual period of 03/24/2024 Encounters Date Type Department Care Team Description 11/03/2024 Clinisync Result Encounter [facility] External Department Unsolicited Dave Ortiz DO 11/03/2024 Clinisync Result Encounter NOMS External Department Unsolicited Dave Ortiz DO 10/26/2024 11:20 AM EDT Routine [facility] [address] [facility] [address] Dave Ortiz, 30 weeks gestation of ; Third trimester ; Nadia cisterna magna (CMS/HCC); 28 weeks gestation of ; SGA (small for gestational age) 10/26/2024 Clinisync Result Encounter [facility] External Department Unsolicited Dave Ortiz, DO 10/26/2024 Bamboo flowsheet [facility] [address] [facility] [address] Dave Ortiz, DO 10/20/2024 Telephone [facility] [address] [facility] [address] Dave Ortiz, DO 10/19/2024 11:30 AM EDT Ancillary Procedure [facility] [address] [facility] [address] Nadia cisterna magna (CMS/HCC) 10/18/2024 Travel 10/12/2024 9:20 AM EDT Routine [facility] [address] [facility] [address] Dave Ortiz, Third trimester ; 28 weeks gestation of ; Nadia cisterna magna (CMS/HCC) 10/12/2024 Patient Outreach [facility] [address] [place] [address] Elena Felix, TERMINAL BLOCK ASSEMBLER 10/12/2024 Bamboo flowsheet [facility] [address] [facility] [address] Dave Ortiz, DO 09/29/2024 Orders Only [facility] [address] [facility] [address] Destinee Vazquez, TERMINAL BLOCK ASSEMBLER 09/29/2024 Abstract [facility] [address] [facility] [address] Dave Ortiz, DO 09/10/2024 11:10 AM EDT Routine [facility] [address] [place] [address] Dave Ortiz, DO Well woman exam with routine gynecological exam; STD exposure; Vaginal discharge; Second trimester ; 24 weeks gestation of 09/10/2024 Clinisync Result Encounter [facility]OM[facility] External Department Unsolicited Dave Ortiz, DO 09/10/2024 External Result Encounter [facility] External Department Unsolicited Dave Ortiz, DO 09/10/2024 Bamboo flowsheet [facility] OB [address] [facility] [address] Dave Ortiz, DO 09/08/2024 Patient Outreach [facility] [address] [place] [address] Elena Felix LPN 09/07/2024 Abstract [facility] [address] [place] [address] Dave Ortiz, DO 09/07/2024 Clinisync Result Encounter [facility] External Department Unsolicited Dave Ortiz, DO 09/07/2024 Telephone [facility] OB [address] [place] [address] Dave Ortiz, DO 08/28/2024 Abstract [facility] OB [address] [place] [address] Dave Ortiz, DO 08/25/2024 Telephone [facility] OB [address] [facility] [address] Essie Platt MA 08/13/2024 11:30 AM EST Routine [facility] [address] [place] [address] Elena Fofana PA Second trimester ; 20 weeks gestation of 08/13/2024 10:30 AM EST Ancillary Procedure [facility] [address] [facility] [place] [address] Screening, , for anatomic survey 08/12/2024 Patient Outreach [facility] [address] [place] [address] Elena Felix LPN from Last 3 Months Social History Tobacco Use Types Packs/Day Years Used Date Smoking Tobacco: Never Tobacco Cessation:Counseling Given: Not Answered Alcohol Use Standard Drinks/Week Comments Never 0 [...] on file Sexual Orientation Not on file Last Filed Vital Signs Vital Sign Reading Time Taken Comments Blood Pressure 120/70 10/26/2024 11:46 AM EDT Pulse - - Temperature - - Respiratory Rate - - Oxygen Saturation - - Inhaled Oxygen Concentration - - Weight 76.8 kg (169 lb 6.4 oz) 10/26/2024 11:46 AM EDT Height 167.6 cm (5' 6 ) 10/24/2022 12:00 PM EDT Body Mass Index 27.34 10/24/2022 12:00 PM EDT Plan of Treatment Upcoming Encounters Date Type Department Care Team (Late st Contact Info) Description 11/10/2024 11:00 AM EDT Routine [facility] [address] [facility] [address] Dave Ortiz, DO [address] [facility] [address] [place], [place] [id number] Health Maintenance Due Date Last Done Comments Influenza Vaccine (Season Ended) 2025 05/19/20 13, 04/29/2012 Pap Smear 09/11/2027 09/10/2024, 10/24/2022 Cervical Cancer Screening 10/25/2027 HPV/Cotest 10/25/2027 Goals Goal Patient Goal Type Associated Problems Recent Progress Patient-Stated? Author Reminders Care Plan OB Reminders No Open Scheduling, Background Procedures Procedure Name Priority Date/Time Associated Diagnosis Comments US OB GROWTH 11/03/2024 4:34 PM EDT US OB BPP W NON-STRESS 11/03/2024 3:31 PM EDT ALL CBC WITH AUTO DIFF Routine 12:52 PM EDT [facility] CMP (CMP) (FOR REMOTE [facility] USE) Routine 10/26/2024 12:52 PM EDT POCT URINALYSIS DIPSTICK Routine 10/26/2024 11:52 AM EDT 30 weeks gestation of Third trimester US OB FOLLOW UP TRANSABDOMINAL APPROACH Routine 10/19/2024 11:56 AM EDT Nadia cisterna magna (CMS/HCC) POCT URINALYSIS DIPSTICK Routine 10/12/2024 9:39 AM EDT Third trimester POCT URINALYSIS DIPSTICK Routine 09/14/2024 10:18 AM EDT 24 weeks gestation of RECURRENT VAGINITIS (HTRX) Routine 09/10/2024 12:23 PM EDT IGP,APTIMA HPV,AGE GDLN Routine 09/11/19 11:42 AM EDT PAP SMEAR Routine 09/10/2024 12:00 AM EDT GLUCOSE 1 HOUR Routine 09/07/2024 11:45 AM EDT ALL CBC WITH AUTO DIFF Routine 11:45 AM EDT US OB 14+ WEEKS ANATOMY SCAN Routine 08/13/2024 11:31 AM EST Screening, , for anatomic survey from Last 3 Months Results * US OB GROWTH (11/03/2024 4:34 PM EDT) Anatomical Region Laterality Modality Other 11/03/2024 4:34 PM EDT Narrative 11/03/2024 4:36 PM EDT [address] [address] Ultrasound Report Signed Patient: ZULEIKA WYATT MR#: [id number] : 1990 Acct:[id number] Age/Sex: 34 / F ADM Date: 11/03/24 Loc: US Attending Dr: Dave Ortiz D.O. Ordering Physician: Dave Ortiz D.O. Date of Service: 11/03/24 Procedure(s): US OB growth Accession Number(s): [id number] cc: Dave Ortiz D.O.; Ramon Avila M.D. [place] [address] Patient Name: ZULEIKA WYATT MRN: [id number] date: 1990 Sex: F Assigned Patient Location: US Current Patient Location: Accession/Order Number: [id number] Exam Date: 11/03/2024 16:30 Report Date: 11/03/2024 16:34 At the request of: DAVE ORTIZ DO Procedure: US OB growth Limited ultrasound HISTORY: Negative cisterna magna. Fetus in cephalic presentation with longitudinal lie. Amniotic fluid index is 11.1 cm within normal limits. Largest fluid pocket measures 5.1 cm. The heart rate is 148 bpm. The estimated date of delivery 01/01/2025 with overall gestational age 31 weeks 4 days. Estimated weight is 1825 g within the 30th percentile. Prominent cisterna magna present. Width 1.4 cm. Length of 4.5 cm. US/US OB growth IMPRESSION: Prominent cisterna magna. This measures 1.4 cm. Impression dictated by: Aaron Boyce M.D. 11/03/2024 4:34 PM Dictation Location: [place] [address] Electronically authenticated by: [id number] Y Date: 11/03/2024 16:34 Dictated By: Aaron Boyce D.O. Signed By: 11/03/24 1636 DD/ 1634 TD/TT: Fudger: Procedure Note Radiology, Radiologist, - 11/03/2024 [place] [address] Ultrasound Report Signed Patient: ZULEIKA WYATT LMR#: [id number] : 1990Acct:[id number] Age/Sex: 34 / FADM Date: 11/03/24 Loc: US Attending Dr: Dave Ortiz D.O. Ordering Physician: Dave Ortiz D.O. Date of Service: 11/03/24 Procedure(s): US OB growth Accession Number(s): [id number] cc: Dave Ortiz D.O.; Ramon Avila M.D. [place] [address] Patient Name: ZULEIKA WYATT MRN: [id number] date: 1990 Sex: F Assigned Patient Location: US Current Patient Location: Accession/Order Number: [id number] Exam Date: 11/03/2024 16:30 Report Date: 11/03/2024 16:34 At the request of: DAVE ORTIZ DO Procedure: US OB growth Limited ultrasound HISTORY: Negative cisterna magna. Fetus in cephalic presentation with longitudinal lie. Amniotic fluidindex is 11.1 cm within normal limits. Largest fluid pocket measures 5.1 cm. The heart rate is 148 bpm. The estimated date of delivery 01/01/2025with overall gestational age 31 weeks 4 days. Estimated weight is 1825 g within the 30th percentile. Prominent cisterna magna present. Width 1.4cm. Length of 4.5 cm. US/US OB growth IMPRESSION: Prominent cisterna magna. This measures 1.4 cm. Impression dictated by: Aaron Boyce M.D. 11/03/2024 4:34 PM Dictation Location: [place] [address] Electronically authenticated by: [id number] Y Date: 6:34 Dictated By: Aaron Boyce D.O. Signed By:11/03/24 1636 DD/ 1634 TD/TT: Fudger: us Dave Ortiz DO [facility] IMAGING Final Result * US OB BPP W NON-STRESS (11/03/2024 3:31 PM EDT) Anatomical Region Laterality Modality Other 11/03/2024 3:31 PM EDT Narrative 11/03/2024 3:33 [place] [address] Ultrasound Report Signed Patient: ZULEIKA WYATT MR#: [id number] : 1990 Acct:[id number] Age/Sex: 34 / F ADM Date: 11/03/24 Loc: US Attending Dr: Dave Ortiz D.O. Ordering Physician: Dave Ortiz D.O. Date of Service: 11/03/24 Procedure(s): US OB BPP w non-stress Accession Number(s): [id number] cc: Dave Ortiz D.O.; Ramon Avila M.D. [place] [id number] Patient Name: ZULEIKA WYATT MRN: [id number] date: 1990 Sex: F Assigned Patient Location: Current Patient Location: Accession/Order Number: [id number] Exam Date: 11/03/2024 15:29 Report Date: 11/03/2024 15:31 At the request of: DAVE ORTIZ DO Procedure: US OB BPP w non-stress Ultrasound obstetrical biophysical profile HISTORY: Breeding cisterna magna. In adequate breathing movement. Adequate gross body movement, tone and amniotic fluid volume. Total score 6 out of 8. Amniotic fluid index 11.1 cm within normal limits. heart rate 148 bpm. US/US OB BPP w non-stress IMPRESSION: Suboptimal biophysical profile. Score 6 out of 8. Impression dictated by: Aaron Boyce M.D. 11/03/2024 3:31 PM Dictation Location: [employer] Electronically authenticated by: [id number] Y Date: 11/03/2024 15:31 Dictated By: Aaron Boyce D.O. Signed By: 11/03/24 1533 DD/ 30 TD/TT: Fudger: Procedure Note Radiology, Radiologist, - 11/03/2024 [place] [address] Ultrasound Report Signed Patient: ZULEIKA WYATT LMR#: [id number] : 1990Acct:[id number] Age/Sex: 34 / FADM Date: 11/03/24 Loc: US Attending Dr: Dave Ortiz D.O. Ordering Physician: Dave Ortiz D.O. Date of Service: 11/03/24 Procedure(s): US OB BPP w non-stress Accession Number(s): [id number] cc: Dave Ortiz D.O.; Ramon Avila M.D. [place] [address] Patient Name: ZULEIKA WYATT MRN: [id number] date: 1990 Sex: F Assigned Patient Location: US Current Patient Location: Accession/Order Number: [id number] Exam Date: 11/03/2024 15:29 Report Date: 11/03/2024 15:31 At the request of: DAVE ORTIZ DO Procedure: US OB BPP w non-stress Ultrasound obstetrical biophysical profile HISTORY: Breeding cisterna magna. In adequate breathing movement. Adequate gross body movement, tone and amniotic fluid volume. Total score 6 out of 8. Amniotic fluidindex 11.1 cm within normal limits. heart rate 148 bpm. US/US OB BPP w non-stress IMPRESSION: Suboptimal biophysical profile. Score 6 out of 8. Impression dictated by: Aaron Boyce M.D. 11/03/2024 3:31 PM Dictation Location: [employer] Electronically authenticated by: [id number] Y Date: 5:31 Dictated By: Aaron Boyce D.O. Signed By:11/03/24 1533 DD/ 1531 TD/TT: Fudger: us Dave Diana DO [facility] Final Result * (ABNORMAL) [facility] CMP (CMP) (FOR REMOTE [facility] USE) (10/26/2024 12:52 PM EDT) SODIUM 134(L) 136 - 145 mmol/L [facility] POTASSIUM 4.1 3.5 - 5.1 mmol/L [facility] CHLORIDE 102 98 - 107 mmol/L [facility] CARBON DIOXIDE 24.0 21.0 - 32.0 mmol/L [facility] ANION GAP 12.1 [facility] GLUCOSE 82 74 - 106 mg/dL [facility] BLOOD UREA NITROGEN 6.0(L) 7.0 - 18.0 mg/dL [facility] CREATININE 0.55 0.55 - 1.02 mg/dL [facility] EGFR-AF CHADIAN >60 >=60 mL/min/1. 73m 2 TB[facility] EGFR-NON AF CHADIAN >60 >=60 mL/min/1. 73m 2 [facility] BUN [...] CLINISYNC - 10/26/2024 1:29 PM EDT us Dave Diana DO [facility] Final Result [facility] * (ABNORMAL) ALL CBC WITH AUTO DIFF (10/26/2024 12:52 PM EDT) Only the most recent of2 resultswithin the time period is included. [facility] WBC 10.2 4.0 - 11.0 10 [...] CLINISYNC - 10/26/2024 1:51 PM EDT us Dave Diana DO [facility] Final Result [facility] * (ABNORMAL) POCT urinalysis dipstick manually resulted (10/26/2024 11:52 AM EDT) Only the most recent of3 resultswithin the time period is included. Color, UA Yellow Clarity, UA Clear Glucose, [...] Positive Urine 10/26/2024 11:5 2 AM EDT Dave Diana DO POINT OF CARE TEST ENTER/EDIT OR DERABLES Final Result * US OB follow up transabdominal approach (10/19/2024 11:56 AM EDT) Anatomical Region Laterality Modality Body Ultrasound 10/21/2024 8:43 AM EDT Narrative 10/21/2024 8:43 AM EDT EXAM: US OB FOLLOW UP TRANSABDOMINAL APPROACH [...] cm. Interpreted by: Electronically signed by ELOISA GONZALEZ II, MD, PHD at 21-Oct-2024 08:41:57 AM [facility] Procedure Note Eloisa Gonzalez MD - 10/21/2024 EXAM: US OB FOLLOW UP TRANSABDOMINAL APPROACH HISTORY: NADIA CISTERNA MAGNA. HUGO 12/29/2024. A2. COMPARISON: U/S OB 08/13/2024, U/S OB MFM REPORT 08/27/2024 TECHNIQUE: Two-dimensional transabdominal grayscale ultrasound imaging ofthe pelvis was performed. FINDINGS: Gestation: Single Presentation: Cephalic Cardiac Activity: 149 beats per minute Placental Location: Anterior with no sonographic abnormalitiesidentified. Distance from Placental Tip to Cervix: Not [...] is 29 weeks 4 days (+/- 14 daysgestation). Estimated Weight: 1477 grams, +/- 222 grams ( 3 lb 4 oz). Weight Percentile for gestational age: 39% The cisterna magna is again dilated measuring 1.9 cm. IMPRESSION: 1. Single, live intrauterine gestation 29 weeks, 6 days by LMP. Today'sultrasound measurements correlate with a gestational age of 29 weeks 4days. 2. Nadia cisterna magna measuring 1.9 cm. Interpreted by: Electronically signed by ELOISA GONZALEZ II, MD, PHD [id number] 08:41:57 AM [facility] us Dave Diana DO IMG OB US PROCEDURES Final Resul t * RECURRENT VAGINITIS (HTRX) (09/10/2024 12:23 PM EDT) [facility] ATOPOBIUM VAGINAE 0.000 19.961 - 24.689 ppm 09/11/2024 6:30 AM EDT [facility] ATOPOBIUM VAGINAE Not Detected 19.961 - 24.689 ppm 09/11/2024 6:30 AM EDT [facility] BVAB 2,3 (BACTERIAL VAGINOSIS ASSOCIATED BACTERIA 2, 3); MOBILUNCUS SPP 0.000 19.961 - 24.689 ppm 09/11/2024 6:30 AM EDT [facility] BVAB 2,3 (BACTERIAL VAGINOSIS ASSOCIATED BACTERIA 2, 3); MOBILUNCUS SPP Not Detected 19.961 - 24.689 ppm 09/11/2024 6:30 AM EDT [facility] JEREMY ALBICANS, PARAPSILOSIS, TROPICALIS 0.000 19.961 - 30.770 ppm 09/11/2024 6:30 AM EDT [facility] JEREMY ALBICANS, PARAPSILOSIS, TROPICALIS Not Detected 19.961 - 30.770 ppm 09/11/2024 6:30 AM EDT [facility] JEREMY GLABRATA 0.000 23.000 - 32.138 ppm 09/11/2024 6:30 AM EDT [facility] JEREMY GLABRATA Not Detected 23.000 - 32.138 ppm 09/11/2024 6:30 AM EDT [facility] JEREMY KRUSEI 0.000 23.000 - 32.271 ppm 09/11/2024 6:30 AM EDT [facility] JEREMY KRUSEI Not Detected 23.000 - 32.271 ppm 09/11/2024 6:30 AM EDT [facility] CHLAMYDIA TRACHOMATIS 0.000 23.000 - 31.467 ppm 09/11/2024 6:30 AM EDT [facility] CHLAMYDIA TRACHOMATIS Not Detected 23.000 - 31.467 ppm 09/11/2024 6:30 AM EDT [facility] GARDNERELLA VAGINALIS 0.000 19.961 - 24.689 ppm 09/11/2024 6:30 AM EDT [facility] GARDNERELLA VAGINALIS Not Detected 19.961 - 24.689 ppm 09/11/2024 6:30 AM EDT [facility] MEGASPHAERA (TYPES 1, 2) 0.000 19.961 - 24.689 ppm 09/11/2024 6:30 AM EDT [facility] MEGASPHAERA (TYPES 1, 2) Not Detected 19.961 - 24.689 ppm 09/11/2024 6:30 AM EDT [facility] NEISSERIA GONORRHOEAE 0.000 23.000 - 32.117 ppm 09/11/2024 6:30 AM EDT [facility] NEISSERIA GONORRHOEAE Not Detected 23.000 - 32.117 ppm 09/11/2024 6:30 AM EDT [facility] TRICHOMONAS VAGINALIS 0.000 23.000 - 32.119 ppm 09/11/2024 6:30 AM EDT [facility] TRICHOMONAS VAGINALIS Not Detected 23.000 - 32.119 ppm 09/11/2024 6:30 AM EDT [facility] MYCOPLASMA GENITALIUM 0.000 19.961 - 24.689 ppm 09/11/2024 6:30 AM EDT [facility] MYCOPLASMA GENITALIUM Not Detected 19.961 - 24.689 ppm 09/11/2024 6:30 AM EDT [facility] Tissue 09/10/2024 12:2 3 PM EDT 09/11/2024 1:40 AM EDT us Dave Ortiz DO LAB BLOOD ORDERABLES Final Resul t [facility] [place] [address] * IGP,APTIMA HPV,AGE GDLN (09/10/2024 11:42 AM EDT) AGE GDLN ACOG TESTING Note . [facility] Comment: TESTS RESULT FLAG UNITS REF RANGE LAB Clinician Provided Cytology Information Source.............[facility] Other.............. No. of containers..01 ThinPrep Vial Age Algo ACOG Krista... 30-65 01 FLAG LEGEND: L-Low Normal,H-High Normal,LL-Alert Low,HH-Alert High <-Panic Low,>-Panic High,A-Abnormal,AA-Critical Abnormal Performed at: 01 =[facility] [place] [address] Joann Denney MD, IGP, APTIMA HPV, RFX 16/18,45 Note . [facility] Comment: TESTS RESULT FLAG UNITS REF RANGE LAB DIAGNOSIS: 02 NEGATIVE FOR INTRAEPITHELIAL LESION OR MALIGNANCY. Specimen adequacy: 02 Satisfactory for evaluation. No endocervical component is identified. An endocervical component is not commonly seen in the patient. Performed by: 02 Mindy Martel Bathroom Tiling Professional (ASCP) . 02 Note: Note 02 The [...] High,A-Abnormal,AA-Critical Abnormal Performed at: 02 [facility] [place] [address] Joann Denney MD, HPV APTIMA Negative Negative [facility] Comment: This nucleic acid amplification test detects fourteen high- risk HPV types (16,18,31,33,35,39,45,51,52,56,58,59,66,68) without differentiation. Performed at: =G - [facility] [address] [facility], [place] [id number] Freight Air Brake Fitter: Joann Denney MD, Phone: [phone] Performed at: [address] Kaiden Mack, [place] [id number] Freight Air Brake Fitter: Joann Denney MD, Phone: [phone] 09/10/2024 11:4 2 AM EDT 09/10/2024 3:18 PM EDT Narrative CLINISY[facility] - 09/14/2024 12:08 PM EDT [facility] us Dave Diana DO LAB BLOOD ORDERABLES Final Resul t Performing Organization Address City/[facility] Co de Phone Number [facility] * Pap Smear (09/10/2024 12:00 AM EDT) Swab Cervical swab / Unknown us [facility] Diana Nurse LAB CYTOLOGY ORDERABLES Final Result Performing Organization Address [facility]/ZIP Co de Phone Number EXTERNAL LAB * GLUCOSE 1 HOUR (09/07/2024 11:45 AM EDT) GLUCOSE 1 HOUR 102 <130 mg/dL TB 09/07/2024 11:4 5 AM EDT 09/07/2024 11:55 AM EDT Narrative CLINISYNC - 09/07/2024 12:52 PM EDT us Dave Diana DO LAB BLOOD ORDERABLES Final Resul t Performing Organization Address [facility] Co de Phone Number [facility] * US OB 14+ weeks anatomy scan (08/13/2024 11:31 AM EST) Anatomical Region Laterality Modality Body Ultrasound 08/15/2024 7:23 AM EST Narrative 08/15/2024 7:23 AM EST EXAM: US OB 14+ WEEKS ANATOMY SCAN [...] the anatomy. Electronically Signed:Electronically signed by ELOISA GONZALEZ II, MD, PHD at 15-Aug-2024 07:21:28 AM [facility] Procedure Note Eloisa Gonzalez MD - 08/15/2024 EXAM: US OB 14+ WEEKS ANATOMY SCAN HISTORY: anatomy. TECHNIQUE: Two-dimensional transabdominal grayscale ultrasound imaging ofthe pelvis was performed. FINDINGS: Gestation: Single Presentation: Variable Cardiac Activity: 141 beats per minute Placental Location: Anterior with no sonographic abnormalitiesidentified. Distance from Placental Tip to Cervix: 5.0 [...] is 20 weeks 1 days (+/- 10 daysgestation). Estimated Weight: 363 grams, +/- 54 grams [...] gestation 20 weeks, 2 days by LMP. Today'sultrasound measurements correlate with a gestational age of 20 weeks 1days. Estimated weight is 363 grams, +/- 54 grams ( 0 lb 13 oz)which correlates to 62 %. HUGO is 12/30/2024. 2. Unremarkable ultrasound of the anatomy. Electronically Signed:Electronically signed by ELOISA GONZALEZ II, MD, PHDat 15-Aug-2024 07:21:28 AM [facility] us Dave Ortiz DO [facility] [place] PROCEDURES Final Resul t from Last 3 Months Additional Health Concerns Active Problems Noted Date Diagnosed Date OB Reminders 06/23/2024 Insurance * Guarantor: Zuleika Wyatt Account Type Relation to Patient Date of Phone Billing Address Personal/Family Self 1990 [address] [place] [address] [facility] [place] Care Teams Logistics Supply Officer Relationship Specialty Start Date End Date Unallocated, [facility] Provider, [address] [place] [address] PCP - General 03/04/23 Jaime Wyatt PA [address] [place], [place] [id number] Referring Physician Physical Medicine and Rehabilitation 03/04/23
--- OUTSIDE RECORDS SUMMARY | 2024-11-06 10:07 | XMS_ITS | Encounter Summary ---
Author Organization [facility] Address [address] [facility] [place] [address] Care Team Providers Care Mechanical Energy Engineer Name Role Phone YoselinJaime FERMIN Unavailable Unallocated, Noms Provider Primary Care Provi kwabena Encounter Details Date Type Department Care Team (Late st Contact Info) Description 04/26/2023 Clinisync Result Encounter [facility] External Department Unsolicited Dave Ortiz, DO [address] [place] [address] Social History Tobacco Use Types Packs/Day Years Used Date Smoking Tobacco: Never Assessed Comments Yes Sex and Gender Information Value Date Recorded Sex Assigned at Not on file Legal Sex Female 11:47 PM EDT Gender Identity Not on file Sexual Orientation Not on file documented as of this encounter Plan of Treatment Upcoming Encounters Date Type Department Care Team (Late st Contact Info) Description 11/10/2024 11:00 AM EDT Routine [facility] BCP OB [address] [place] [address] Dave Ortiz DO [address] [place] [address] documented as of this encounter Procedures Procedure Name Priority Date/Time Associated Diagnosis Comments US OB TRANSVAGINAL 04/26/2023 8: 15 PM EST documented in this encounter Results * US OB TRANSVAGINAL (04/26/2023 8:15 PM EST) Anatomical Region Laterality Modality Other 04/26/2023 8:15 PM EST Narrative 04/26/2023 8:15 PM EST [address] [address] Ultrasound Report Signed Patient: ZULEIKA WADDELL MR#: [id number] : 1990 Acct:[id number] Age/Sex: 33 / F ADM Date: 04/26/23 Loc: US Attending Dr: Dave Ortiz D.O. Ordering Physician: Dave Ortiz D.O. Date of Service: 04/26/23 Procedure(s): US OB transvaginal Accession Number(s): [id number] cc: Dave Ortiz D.O.; Physician,Non-Staff Didi The [address] [address] Patient Name: ZULEIKA WADDELL MRN: TBH:[id number] date: 1990 Sex: F Assigned Patient Location: US Current Patient Location: US Accession/Order Number: [id number] Exam Date: 04/26/2023 09:40 Report Date: 04/26/2023 20:15 At the request of: DAVE ORTIZ Procedure: US OB transvaginal EXAMINATION: US OB transvaginal HISTORY: MISSED MENSES COMPARISON: No relevant comparison available. FINDINGS: GESTATIONAL SAC: Present and normal appearing. YOLK SAC: Present and normal appearing. POLE: Present and normal appearing. CARDIAC: Present. UTERUS: Normal size and appearance. OVARIES: Right: Not seen. Left: Not seen. CERVIX: 4.8 cm in length and closed. CUL-DE-SAC: Normal. OTHER: None. AGE BY LMP: Unknown LMP HUGO BY LMP: AGE BY US CRL: 8 weeks 4 days HUGO BY US CRL: 12/02/2023 US/US OB transvaginal IMPRESSION: 1. Single live intrauterine 8 weeks 4 days by today's ultrasound. Electronically authenticated by: JALEN DAWN Date: 04/26/2023 20:15 Dictated By: Jalen Dawn M.D. Signed By: 04/26/232017 DD/ 14 TD/TT: Supervisor Type Disk Quality Control: Procedure Note Radiology, Radiologist, MD - 04/26/2023 [place] [address] Ultrasound Report Signed Patient: ZULEIKA WADDELL LMR#: [id number] : 1990Acct:[id number] Age/Sex: 33 / FADM Date: 04/26/23 Loc: US Attending Dr: Dave Ortiz D.O. Ordering Physician: Dave Ortiz D.O. Date of Service: 04/26/23 Procedure(s): US OB transvaginal Accession Number(s): [id number] cc: Dave Ortiz D.O.; Physician,Non-Staff Didi The [place] [address] Patient Name: ZULEIKA WADDELL MRN: TBH:[id number] date: 1990 Sex: F Assigned Patient Location: US Current Patient Location: US Accession/Order Number: [id number] Exam Date: 04/26/2023 09:40 Report Date: 04/26/2023 20:15 At the request of: DAVE ORTIZ Procedure: US OB transvaginal EXAMINATION: US OB transvaginal HISTORY: MISSED MENSES COMPARISON: No relevant comparison available. FINDINGS: GESTATIONAL SAC: Present and normal appearing. YOLK SAC: Present and normal appearing. POLE: Present and normal appearing. CARDIAC: Present. UTERUS: Normal size and appearance. OVARIES: Right: Not seen. Left: Not seen. CERVIX: 4.8 cm in length and closed. CUL-DE-SAC: Normal. OTHER: None. AGE BY LMP: Unknown LMP HUGO BY LMP: AGE BY US CRL: 8 weeks 4 days HUGO BY US CRL: 12/02/2023 US/US OB transvaginal IMPRESSION: 1. Single live intrauterine 8 weeks 4 days by karo. Electronically authenticated by: JALEN DAWN Date: 04/26/2023 20:15 Dictated By: Jalen Dawn M.D. Signed By:04/26/232017 DD/ 14 TD/TT: Supervisor Type Disk Quality Control: us Dave Ortiz DO [facility] Final Result documented in this encounter Visit Diagnoses Not on filedocumented in this encounter Care Teams Mechanical Energy Engineer Relationship Specialty Start Date End Date Unallocated, Noms Provider, [address] [place] [address] PCP - General 03/04/23 Jaime Waddell PA [address] [place], [place] [phone] Referring Physician Physical Medicine and Rehabilitation 03/04/23 documented as of this encounter
--- OUTSIDE RECORDS SUMMARY | 2024-11-06 10:07 | XMS_ITS | Encounter Summary ---
Author Organization [facility] Address [address] [facility] [place] [address] Care Team Providers Care Safety Counselor Name Role Phone Yoselin Jaime FERMIN Unavailable Unallocated, Noms Provider Primary Care Provi kwabena Encounter Details Date Type Department Care Team (Late st Contact Info) Description 06/26/2024 Abstract [facility] BCP OB [address] [place] [address] Cuong Ortiz, DO [address], [place] [address] Social History Tobacco Use Types Packs/Day Years Used Date Smoking Tobacco: Never Alcohol Use Standard Drinks/Week Comments Never 0 (1 standard drink = 0.6 oz pur e alcohol) Estimated Date of Delivery Comme nts Yes [...] Routine [facility] BCP OB [address] [place] [address] Cuong Ortiz, DO [address], [facility] documented as of this encounter Goals Goal Patient Goal Type Associated Problems Recent Progress Patient-Stated? Author Reminders Care Plan OB Reminders No Open Scheduling, Background documented as of this encounter Visit Diagnoses Not on filedocumented in this encounter Additional Health Concerns Active Problems Noted Date Diagnosed Date OB Reminders 06/23/2024 documented as of this encounter Care Teams Safety Counselor Relationship Specialty Start Date End Date Unallocated, Noms Provider, [address] [place], [place] [phone] PCP - General 03/04/23 Jaime Wyatt PA [address] [place] [address] Referring Physician Physical Medicine and Rehabilitation 03/04/23 documented as of this encounter
--- OUTSIDE RECORDS SUMMARY | 2024-11-06 10:07 | XMS_ITS | Encounter Summary ---
Author Organization [facility] Address [address] [facility] [place] [address] Care Team Providers Care Hardboard Grinder Name Role Phone Jaime Wyatt Unavailable Unallocated, Noms Provider Primary Care Provi kwabena Encounter Details Date Type Department Care Team (Late st Contact Info) Description 11/07/2023 Abstract [facility] BCP OB [address] [facility] [place] [address] Cuong Ortiz DO [facility] [address], [place] [address] Social History Tobacco Use Types Packs/Day Years [...] Routine [facility] BCP OB [address] [place] [address] Cuong Ortiz DO [facility] [address] [place], [place] [phone] documented as of this encounter Visit Diagnoses Not on filedocumented in this encounter Care Teams Hardboard Grinder Relationship Specialty Start Date End Date Unallocated, Noms Provider, [address] [place], [place] [phone] PCP - General 03/04/23 Jaime Wyatt PA [address] [place], [place] [phone] Referring Physician Physical Medicine and Rehabilitation 03/04/23 documented as of this encounter
--- OUTSIDE RECORDS SUMMARY | 2024-11-06 10:07 | XMS_ITS | Encounter Summary ---
Author Organization [facility] Address [address] [facility] [place] [address] Care Team Providers Care Chemical Lab Supervisor Name Role Phone Yoselin Jaime FERMIN Unavailable Unallocated, Noms Provider Primary Care Provi kwabena Encounter Details Date Type Department Care Team (Late st Contact Info) Description 06/30/2024 Abstract [facility] BCP OB [address] [place] [address] Cuong Ortiz, DO [address], [place] [address] Social History Tobacco Use Types Packs/Day Years [...] Routine [facility] BCP OB [address] [place] [address] Cuong Ortiz, DO [address], [facility]11 documented as of this encounter Goals Goal Patient Goal Type Associated Problems Recent Progress Patient-Stated? Author Reminders Care Plan OB Reminders No Open Scheduling, Background documented as of this encounter Visit Diagnoses Not on filedocumented in this encounter Additional Health Concerns Active Problems Noted Date Diagnosed Date OB Reminders 06/23/2024 documented as of this encounter Care Teams Chemical Lab Supervisor Relationship Specialty Start Date End Date Unallocated, Noms Provider, [address] [place], [place] [address] PCP - General 03/04/23 Jaime Wyatt PA [address] [place] [address] Referring Physician Physical Medicine and Rehabilitation 03/04/23 documented as of this encounter
--- OUTSIDE RECORDS SUMMARY | 2024-11-06 10:07 | XMS_ITS | Encounter Summary ---
Author Organization [facility] Address [address] [facility] [place] [address] Care Team Providers Care Drum Tender Name Role Phone Yoselin Jaime FERMIN Unavailable Unallocated, Noms Provider Primary Care Provi kwabena Encounter Details Date Type Department Care Team (Late st Contact Info) Description 10/24/2023 Clinisync Result Encounter [facility]S External Department Unsolicited Dave Ortiz, DO [facility] [place], [place] [address] Social History Tobacco Use Types Packs/Day Years [...] Routine [facility] BCP OB [address] [place] [phone] Dave Ortiz DO [place] [address] documented as of this encounter Procedures Procedure Name Priority Date/Time Associated Diagnosis Comments US OB BPP W NON-STRESS 10/24/2023 7:37 AM EDT documented in this encounter Results * US OB BPP W NON-STRESS (10/24/2023 7:37 AM EDT) Anatomical Region Laterality Modality Other 10/24/2023 7:37 AM EDT Narrative 10/24/2023 7:40 [place] [address] Ultrasound Report Signed Patient: ZLUEIKA WADDELL MR#: [id number] : 1990 Acct:[id number] Age/Sex: 33 / F ADM Date: 10/23/23 Loc: US Attending Dr: Dave Ortiz D.O. Ordering Physician: Dave Ortiz D.O. 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 BREATHING MOVEMENTS: 2.0 GROSS BODY MOVEMENTS: 2.0 TONE: 2.0 QUALITATIVE AMNIOTIC FLUID VOLUME: 2.0 PRESENTATION: CEPHALIC HEART RATE: 164.3 bpm bpm. AMNIOTIC FLUID VOLUME: 11.7 cm GESTATIONAL AGE: 34 weeks 2 days CONCLUSION: Total biophysical profile score 8.0. Electronically authenticated by: JALEN DAWN Date: 10/24/2023 07:37 Dictated By: Jalen Dawn M.D. Signed By: 10/24/23739 DD/ 6 TD/TT: Credit Control Clerk: Procedure Note Radiology, Radiologist, - 10/24/2023 [place] [address] Ultrasound Report Signed Patient: ZULEIKA WADDELL LMR#: [id number] : 1990Acct:[id number] Age/Sex: 33 / FADM Date: 10/23/23 Loc: US Attending Dr: Dave Ortiz D.O. Ordering Physician: Dave Ortiz D.O. 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 BREATHING MOVEMENTS: 2.0 GROSS BODY MOVEMENTS: 2.0 TONE: 2.0 QUALITATIVE AMNIOTIC FLUID VOLUME: 2.0 PRESENTATION: CEPHALIC HEART RATE: 164.3 bpm bpm. AMNIOTIC FLUID VOLUME: 11.7 cm GESTATIONAL AGE: 34 weeks 2 days CONCLUSION: Total biophysical profile score 8.0. Electronically authenticated by: JALEN DAWN Date: 10/24/2023 07:37 Dictated By: Jalen Dawn M.D. Signed By:10/24/2340 DD/ 6 TD/TT: Credit Control Clerk: us Dave Ortiz DO [facility] Final Result documented in this encounter Visit Diagnoses Not on filedocumented in this encounter Care Teams Drum Tender Relationship Specialty Start Date End Date Unallocated, Noms Provider, [address] [place], [place] [phone] PCP - General 03/04/23 Jaime Waddell PA [address] [place] [address] Referring Physician Physical Medicine and Rehabilitation 03/04/23 documented as of this encounter
--- OUTSIDE RECORDS SUMMARY | 2024-11-06 10:07 | XMS_ITS | Encounter Summary ---
Author Organization [facility] Address [address] [facility] [place] [address] Care Team Providers Care Brickmason Name Role Phone Yoselin Jaime FERMIN Unavailable Unallocated, Noms Provider Primary Care Provi kwabena Encounter Details Date Type Department Care Team (Late st Contact Info) Description 11/06/2023 Clinisync Result Encounter NOMS External Department Unsolicited Dave Ortiz, [facility] [address], [place] [address] Social History Tobacco Use Types Packs/Day Years [...] Routine [facility] BCP OB [address] [place] [phone] Dave Ortiz DO [facility] [place] [address] documented as of this encounter Procedures Procedure Name Priority Date/Time Associated Diagnosis Comments US OB GROWTH 11/06/2023 3:54 PM EDT documented in this encounter Results * US OB GROWTH (11/06/2023 3:54 PM EDT) Anatomical Region Laterality Modality Other 11/06/2023 3:54 PM EDT Narrative 11/06/2023 3:57 [place] [address] Ultrasound Report Signed Patient: ZULEIKA WADDELL MR#: [id number] : 1990 Acct:[id number] Age/Sex: 33 / F ADM Date: 11/06/23 Loc: US Attending Dr: Dave Ortiz D.O. Ordering Physician: Dave Ortiz D.O. Date of Service: 11/06/23 Procedure(s): US OB growth Accession Number(s): [id number] cc: Dave Ortiz D.O.; Jaime Waddell [place] [address] Patient Name: ZULEIKA WADDELL MRN: [id number] date: 1990 Sex: F Assigned Patient Location: US Current Patient Location: Accession/Order Number: [id number] Exam Date: 11/06/2023 14:19 Report Date: 11/06/2023 15:54 At the request of: DAVE ORTIZ Procedure: US OB growth EXAMINATION: US OB growth HISTORY: Family history of trisomy COMPARISON: No relevant comparison available. FINDINGS: Heart Rate: 150.0 bpm Amniotic Fluid Volume: 11.9 cm Number: 1.0 Position: Cephalic presentation, longitudinal lie Maximum Vertical Pocket: 5.4 cm cm 1.1 cm cm 3.1 cm cm 2.3 cm cm BIOMETRY: BPD: 8.3 cm cm; 33 weeks 4 days; 3% HC: 31.6 cmcm; 35 weeks 3 days , 8% AC: 30.9 cm cm; 34 weeks 6 days, 21% FL: 7.1 cm cm; 36 weeks 1 days; 42.7 % % EFW: 2599.6 grams, 5 lbs. 12 oz., 23% FL/AC: 22.8 FL/BPD: 84.6 HC/AC: 1.0 GESTATIONAL AGE: Age by EDC: 36 weeks 2 days HUGO by EDC: 12/02/2023 Age by US: 35 weeks 0 days HUGO by US: 12/11/2023 US/US OB growth IMPRESSION: BPD at the 3rd percentile, and head circumference at the 8th percentile Otherwise normal interval growth Electronically authenticated by: GAMALIEL CRUMP Date: 11/06/2023 15:54 Dictated By: Gamaliel Crump M.D. Signed By: 11/06/231556 DD/ 53 TD/TT: Golf Club Head Former: Procedure Note Radiology, Radiologist, MD - 11/06/2023 [place] [address] Ultrasound Report Signed Patient: ZULEIKA WADDELL LMR#: [id number] : 1990Acct:[id number] Age/Sex: 33 FADM Date: 11/06/23 Loc: US Attending Dr: Dave Ortiz D.O. Ordering Physician: Dave Ortiz D.O. Date of Service: 11/06/23 Procedure(s): US OB growth Accession Number(s): [id number] cc: Dave Ortiz D.O.; Jaime Waddell The [place] [address] Patient Name: ZULEIKA WADDELL MRN: [id number] date: 1990 Sex: F Assigned Patient Location: US Current Patient Location: Accession/Order Number: [id number] Exam Date: 11/06/2023 14:19 Report Date: 11/06/2023 15:54 At the request of: DAVE ORTIZ Procedure: US OB growth EXAMINATION: US OB growth HISTORY: Family history of trisomy COMPARISON: No relevant comparison available. FINDINGS: Heart Rate: 150.0 bpm Amniotic Fluid Volume: 11.9 cm Number: 1.0 Position: Cephalic presentation, longitudinal lie Maximum Vertical Pocket: 5.4 cm cm 1.1 cm cm 3.1 cm cm 2.3 cm cm BIOMETRY: BPD: 8.3 cm cm; 33 weeks 4 days; 3% HC: 31.6 cmcm; 35 weeks 3 days , 8% AC: 30.9 cm cm; 34 weeks 6 days, 21% FL: 7.1 cm cm; 36 weeks 1 days; 42.7 % % EFW: 2599.6 grams, 5 lbs. 12 oz., 23% FL/AC: 22.8 FL/BPD: 84.6 HC/AC: 1.0 GESTATIONAL AGE: Age by EDC: 36 weeks 2 days HUGO by EDC: 12/02/2023 Age by US: 35 weeks 0 days HUGO by US: 12/11/2023 US/US OB growth IMPRESSION: BPD at the 3rd percentile, and head circumference at the 8th percentile Otherwise normal interval growth Electronically authenticated by: GAMALIEL CRUMP Date: 11/06/2023 15:54 Dictated By: Gamaliel Crump M.D. Signed By:11/06/23 1557 DD/ 53 TD/TT: Golf Club Head Former: us Dave Diana DO [facility] Final Result documented in this encounter Visit Diagnoses Not on filedocumented in this encounter Care Teams Brickmason Relationship Specialty Start Date End Date Unallocated, Noms Provider, [address] [place], [place] [phone] PCP - General 03/04/23 Jaime Waddell PA [address] [place], [place] [address] Referring Physician Physical Medicine and Rehabilitation 03/04/23 documented as of this encounter
--- OUTSIDE RECORDS SUMMARY | 2024-11-06 10:07 | XMS_ITS | Encounter Summary ---
Author Organization [facility] Address [address] [facility] [place] [address] Care Team Providers Care Network And Threat Support Specialist Name Role Phone YoselinJaime FERMIN Unavailable Unallocated, Noms Provider Primary Care Provi kwabena Encounter Details Date Type Department Care Team (Late st Contact Info) Description 11/03/2024 Clinisync Result Encounter NOMS External Department Unsolicited Dave Ortiz, DO [address] [place] [address] Social History Tobacco Use Types Packs/Day Years [...] Description 11/10/2024 11:00 AM EDT Routine [facility] OB [address] [place] [phone] Dave Ortiz, DO [address] [place] [address] documented as of this encounter Goals Goal Patient Goal Type Associated Problems Recent Progress Patient-Stated? Author Reminders Care Plan OB Reminders No Open Scheduling, Background documented as of this encounter Procedures Procedure Name Priority Date/Time Associated Diagnosis Comments US OB GROWTH 11/03/2024 4:34 PM EDT documented in this encounter Results * US OB GROWTH (11/03/2024 4:34 PM EDT) Anatomical Region Laterality Modality Other 11/03/2024 4:34 PM EDT Narrative 11/03/2024 4:36 [place] [address] Ultrasound Report Signed Patient: ZULEIKA WADDELL MR#: [id number] : 1990 Acct:[id number] Age/Sex: 34 / F ADM Date: 11/03/24 Loc: US Attending Dr: Dave Ortiz D.O. Ordering Physician: Dave Ortiz D.O. Date of Service: 11/03/24 Procedure(s): US OB growth Accession Number(s): [id number] cc: Dave Ortiz D.O.; Ramon Avila M.D. The [address] [address] Patient Name: ZULEIKA WADDELL MRN: [id number] date: 1990 Sex: F Assigned Patient Location: US Current Patient Location: Accession/Order Number: [id number] Exam Date: 11/03/2024 16:30 Report Date: 11/03/2024 [...] Boyce M.D. 11/03/2024 4:34 PM Dictation Location: [place] [address] Electronically authenticated by: [id number] Y Date: 11/03/2024 16:34 Dictated By: Aaron Boyce D.O. Signed By: 11/03/24 1636 DD/ 163 TD/TT: Health Safety And Environment Manager: Procedure Note Radiology, Radiologist, MD - 11/03/2024 [place] [address] Ultrasound Report Signed Patient: ZULEIKA WADDELL LMR#: [id number] : 1990Acct:[id number] Age/Sex: 34 / FADM Date: 11/03/24 Loc: US Attending Dr: Dave Ortiz D.O. Ordering Physician: Dave Ortiz D.O. Date of Service: 11/03/24 Procedure(s): US OB growth Accession Number(s): [id number] cc: Dave Ortiz D.O.; Ramon Avila M.D. The [place] [address] Patient Name: ZULEIKA WADDELL MRN: [facility]:[id number] date: 1990 Sex: F Assigned Patient Location: US Current Patient Location: Accession/Order Number: [id number] Exam Date: 11/03/2024 16:30 Report Date: 11/03/2024 [...] Boyce M.D. 11/03/2024 4:34 PM Dictation Location: [place] [address] Electronically authenticated by: [id number] Y Date: 6:34 Dictated By: Aaron Boyce D.O. Signed By:11/03/24 1636 DD/ 1634 TD/TT: Health Safety And Environment Manager: us Dave Diana DO [facility] Final Result documented in this encounter Visit Diagnoses Not on filedocumented in this encounter Additional Health Concerns Active Problems Noted Date Diagnosed Date OB Reminders 06/23/2024 documented as of this encounter Care Teams Network And Threat Support Specialist Relationship Specialty Start Date End Date Unallocated, Noms Provider, [address] [place] [address] PCP - General 03/04/23 Jaime Waddell PA [address] [place] [address] Referring Physician Physical Medicine and Rehabilitation 03/04/23 documented as of this encounter
--- OUTSIDE RECORDS SUMMARY | 2024-11-06 10:07 | XMS_ITS | Encounter Summary ---
Author Organization [facility] Address [address] [facility] [place] [address] Care Team Providers Care Chief Customer Officer Name Role Phone Yoselin Jaime FERMIN Unavailable Unallocated, Noms Provider Primary Care Provi kwabena Encounter Details Date Type Department Care Team (Late st Contact Info) Description 12/13/2023 Abstract [facility]CP [facility] [address] [facility] [place] [phone] Destinee Vazquez LPN [address] [facility] [address] [place] [address] Social History Tobacco Use Types Packs/Day Years [...] AM EDT Routine [facility] BCP OB [address] [facility] [place] [address] Cuong Ortiz DO [address] [facility] [address] [place] [phone] documented as of this encounter Visit Diagnoses Not on filedocumented in this encounter Care Teams Chief Customer Officer Relationship Specialty Start Date End Date Unallocated, Noms Provider, [address] [place], [place] [phone] PCP - General 03/04/23 Jaime Wyatt PA [address] [place], [place] [phone] Referring Physician Physical Medicine and Rehabilitation 03/04/23 documented as of this encounter
--- OUTSIDE RECORDS SUMMARY | 2024-11-06 10:08 | XMS_ITS ---
Author Organization [facility] Source Produ ction (ClinicalSummary Clone) Address Unknown Care Team Providers Care Lawn Care Professional Name Role Phone Unavailable Primary Care Physician Unavailab le Results * [UNITY] ANEUPLOIDY NIPT Performed by: [employer]. Component Value Range Date Fraction 7.1% 06/30/2024 04 :53 am UT Sex Chromosome Aneuploidy NOT DETECTED 04:53 am UT Monosomy X LOW RISK <1 in 10,000 2024 04:53 am UT Trisomy 13 LOW RISK <1 in 10,000 2024 04:53 am UT Trisomy 18 LOW RISK <1 in 10,000 2024 04:53 am UTC Trisomy 21 LOW RISK <1 in 10,000 2024 04:53 am UT Sex FEMALE 06/30/2024 04:5 3 am UT Gestation GONZALES 06/30/19 04:53 am UT For detailed report, see PDF See PDF 06/30/2024 04:53 am UTC 06/30/2024 04:5 3 am [facility] Social History Observation Value Start Date End Date
--- OUTSIDE RECORDS SUMMARY | 2024-11-06 10:08 | XMS_ITS | Encounter Summary ---
Author Organization [facility] Address [address] [facility] [place] [address] Care Team Providers Care Screed Person Name Role Phone WyattJaime FERMIN Unavailable Unallocated, Noms Provider Primary Care Provi kwabena Encounter Details Date Type Department Care Team (Late st Contact Info) Description 09/29/2024 Orders Only [facility] OB [address] [place] [address] Destinee Vazquez LPN [address] [facility] Derek [place] [address] Social History Tobacco Use Types Packs/Day Years [...] AM EDT Routine [facility] [address] [place] [address] Cuong Ortiz, DO [address] [place] [address] documented as of this encounter Goals Goal Patient Goal Type Associated Problems Recent Progress Patient-Stated? Author Reminders Care Plan OB Reminders No Open Scheduling, Background documented as of this encounter Procedures Procedure Name Priority Date/Time Associated Diagnosis Comments PAP SMEAR Routine 09/10/2024 12:00 AM EDT documented in this encounter Results * Pap Smear (09/10/2024 12:00 AM EDT) Swab Cervical swab / Unknown us [facility] Bcp Ob Diana Nurse LAB CYTOLOGY ORDERABLES Final Result EXTERNAL LAB documented in this encounter Visit Diagnoses Not on filedocumented in this encounter Additional Health Concerns Active Problems Noted Date Diagnosed Date OB Reminders 06/23/2024 documented as of this encounter Care Teams Screed Person Relationship Specialty Start Date End Date Unallocated, Noms Provider, [address] [place] [address] PCP - General 03/04/23 Jaime Wyatt PA [address] [place], [place] [phone] Referring Physician Physical Medicine and Rehabilitation 03/04/23 documented as of this encounter
--- OUTSIDE RECORDS SUMMARY | 2024-11-06 10:08 | XMS_ITS ---
Author Organization [facility] Address [address] [place] [address] Care Team Providers Care Board Worker Name Role Phone Jaime Wyatt Unavailable Unallocated, Noms Provider Primary Care Provi kwabena [facility] Status:Enrolled (Active) Start date:08/11/2024 Enrollment date:08/12/2024 Enrollment reason:Identified by Health Plan Case Team Name Relationship Phone Elena Felix LPN(Responsible Staff) Licensed Prac tical Nurse Continued Care and Services Coordination
--- OUTSIDE RECORDS SUMMARY | 2024-11-06 10:08 | XMS_ITS | Encounter Summary ---
Author Organization [facility] Address [address] [facility] [place] [address] Care Team Providers Care Nephrology Social Worker Name Role Phone Jaime Wyatt [place] Unavailable Unallocated, Noms Provider Primary Care Provi [facility] Encounter Details Date Type Department Care Team (Late st Contact Info) Description 12/19/[address] [facility] [address] [facility] [address] [place] [id number] Arden Orozco, DO [address] [facility] [address] [place] [address] Social History Tobacco Use Types Packs/Day Years Used Date Smoking Tobacco: Never Assessed Comments Unknown Sex and Gender Information Value Date Recorded Sex Assigned at Not on file Legal Sex Female 11:47 PM EDT Gender Identity Not on file Sexual Orientation Not on file documented as of this encounter Plan of Treatment Upcoming Encounters Date Type Department Care Team (Late st Contact Info) Description 11/10/2024 11:00 AM EDT Routine [facility] BCP OB [address] [place] [address] Cuong Ortiz DO [address] [place] [address] documented as of this encounter Visit Diagnoses Not on filedocumented in this encounter Care Teams Nephrology Social Worker Relationship Specialty Start Date End Date Unallocated, Noms Provider, [place] [address] [address] PCP - General 03/04/23 Jaime Wyatt PA [address] [place] [address] Referring Physician Physical Medicine and Rehabilitation 03/04/23 documented as of this encounter
--- OUTSIDE RECORDS SUMMARY | 2024-11-06 10:08 | XMS_ITS | Clinical Summary ---
Author Organization [employer] Address [id number] [address] [place] [address] Care Team Providers Care Hyster Driver Name Role Phone Jaime Wyatt PA-C Primary Care Provider Allergies Active Allergy Reactions Criticality Noted Date Comments Bee Venom Protein (Honey Bee) 03/27/2022 Mold 08/13/2024 Other Reaction(s): Unknown Penicillins Hives 11/27/2013 Other Reaction(s): Unknown Other Reaction(s): Anaphylaxis Other Reaction(s): Unknown Sulfa (Sulfonamide Antibiotics) 08/23/2018 Other Reaction(s): Unknown Other Reaction(s): Rash Other Reaction(s): Unknown Medications ondansetron ODT (ZOFRAN ODT) 4 mg disintegrating tablet Dissolve 1 tablet (4 mg total) on tongue every 8 (eight) hours as needed for nausea or vomiting. Active 25/iron fum/folic/dha (-1 ORAL) Take 1 capsule by mouth once daily. Active fluconazole (DIFLUCAN) 10 mg/mL suspension 3 Active Active Problems Patient Care Coordination No te Formatting of this note migh t be different from the original. CARE COORDINATION DIAGNOSIS: Christiano Cisterna Magna Referring OB: Diana DEALM: Ochoa Maternal Hx: MSAFP: cfDNA: Low risk XX Carrier: Amnio: [x]Genetic Counsellin07/03/23 To be sched again per MAIKOL Pt Declining []Peds Cardiology: []Peds Urology: []Peds Ortho: []Peds Surgery: [x]Peds Neurology: To have consult peer pt request []Peds Neurosurgery: []Peds Craniofacial: []NICU Consult: []Palliative Care Consult: []SGM: []Life Connection: [][place]: [] MRI: []Nationwide: [][facility]: []UH: []MICHELLE CHS: Delivery Recommendation: [] Term at local hospital [] Term at [facility] Surveillance Plan: [x] F/U Survey at _4-6_ weeks with Neurosonogram Sched 09/28/[address] 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 03/28/2022 Estimated Date of Delivery Comme nts Yes 12/29/2024 Based on last me nstrual period of 03/24/2024 Encounters Date Type Department Care Team Description 09/28/2024 2:00 PM EDT Office Visit Maternal- Medicine at [facility] [address] [place] [address] Trav Macdonald MD Christiano cisterna magna (CMS-HCC) - (Primary Dx); Nodular heterotopia (CMS-HCC) - ; 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 , 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 09/28/2024 12:43 PM EDT - 09/28/2024 11:59 PM EDT Hospital Encounter [facility] - [facility] US Imaging [address] [place] [address] 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 , 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; Family history of genetic disorder; Fetus with trisomy 13, single gestation; CM (congenital malformation); Suspected anomaly, antepartum, single or unspecified fetus Discharge Disposition: Home 09/28/2024 Travel 08/27/2024 2:30 PM EDT Telemedicine Maternal Medicine [facility] [address] [address] Alyson Packer MD Suspected anomaly, antepartum, single or unspecified fetus (Primary Dx); 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 , 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; Family history of genetic disorder; Fetus with trisomy 13, single gestation; CM (congenital malformation) 08/27/2024 Travel 08/27/2024 Abstract Maternal- Medicine at [facility] [address] [place] [phone] External, Scanning Provider 08/27/2024 Orders Only Maternal- Medicine at [facility] [address] [place] [phone] Beronica Minaya, [employer]LECT[employer]OR [employer] 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 , 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 (Primary Dx) from Last 3 Months Immunizations Immunization Administration Dates Next Due DTP 07/07/2022,1992 DTaP / HIB 09/18/1997, 4,1992,11/07,1992 DTaP, Unspecified 10/08/1997 HPV Quadrivalent 10/18/2010,07/26/2010, 9 Hep B, Adolescent or Pediatric 12/09/1997,1997,03/10/1997 HiB 01/16/1993,1992 Hib (PRP-T) 12/09/1997,10/08/1997,03/10/1997 Influenza Whole 04/29/2012 Influenza, Injectable, quadr ivalent (PF) 05/19/2013 MMR 10/08/1997,08/23/1993 Meningococcal MCV4P 12/24/2008 OPV 10/08/1997, 4,1992,07/29 Polio, Unspecified 09/18/1997,1992 Tdap 12/18/2022,11/07/2017,10/24/2017 Family History Relation Name Status Comments Father unknown Alive Maternal Grandfather unknown Maternal Grandmother unknown Mother unknown Alive Paternal Grandfather unknown Paternal Grandmother unknown Alive Social History Tobacco Use Types Packs/Day Years Used Date Smoking Tobacco: Never Smokeless Tobacco: Never Tobacco Cessation:Counseling Given: Not Answered Alcohol Use Standard Drinks/Week Comments No 0 (1 standard drink = 0.6 oz pur e alcohol) AUDIT-C Answer Date Recorded Frequency of Alcohol Consumption Never 03/18/2018 Average Number of Drinks Not on file Frequency of Binge Drinking Not on file 07/2017 PHQ-2 Answer Date Recorded Total Score 0 05/02/2022 Childcare Answer Date Recorded Childcare Unknown 11/26/2018 Employment Answer Date Recorded Employment Unknown 11/26/2018 Hunger Screening Answer Date Recorded Within the past 12 months we worried whether our food would run out before we got money to buy more. Never True 09/28/2024 Within the past 12 months th e food we bought just didn't last and we didn't have money to get more. Never True 09/28/2024 Purpose - Life Answer Date Recorded Purpose [...] Sign Reading Time Taken Comments Blood Pressure 114/74 09/28/2024 1:39 PM EDT Pulse 79 09/28/2024 1:39 PM EDT Temperature 36.7 C (98.1 F) 05/18/2019 11:10 AM EST Respiratory Rate 16 05/18/2019 11:53 AM EST Oxygen Saturation 99% 05/18/2019 11:53 AM EST Inhaled Oxygen Concentration - - Weight 73.9 kg (163 lb) 08/27/2024 2:22 PM EDT Height 165.1 cm (5' 5 ) 09/10/2022 2:53 PM EDT Body Mass Index 27.12 09/10/2022 2:53 PM EDT Plan of Treatment Upcoming Encounters Date Type Department Care Team (Late st Contact Info) Description 11/16/2024 1:00 PM EDT Appointment [facility] US Imaging [address] [place] [address] 11/16/2024 2:30 PM EDT Office Visit Maternal- Medicine at [facility] [address] [place] [address] Trav Macdonald MD [address] [place] [address] Health Maintenance Due Date Last Done Comments Depression Screening 05/02/2023 05/02/2022 COVID-19 Vaccine (2023-2 5 season) 2024 03/14/2021, 02/06/2021 Influenza Vaccine 02/15/2025 05/19/2013, 04/29/2012 Adult BMI Screening 08/27/2025 08/27/2024 Tobacco Screening 09/28/2025 09/28/2024 Pap Smear 10/24/2025 10/24/2022 DTaP,Tdap and Td Vaccines (1 0 - Td or Tdap) 12/18/2032 12/18/2022, 07/07/2022, 11/07/2017, Additional history exists Medical Devices Not on file Procedures Procedure Name Priority Date/Time Associated Diagnosis Comments US [facility] OB FOLLOW-UP, 1 FETUS Routine 09/28/2024 2:38 PM EDT 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 Anatomical Region Laterality Modality OB-MEN'S DESIGNER Ultrasound 09/28/2024 1:14 PM EDT Narrative 09/28/2024 4:08 PM EDT NAME: YOSELIN TO : 1990 SEX: F Accession Number: [id number] ORDERING PHYSICIAN: TRAV MACDONALD REFERRING PHYSICIAN: DAVE CUELLAR Coding ----- --------- Procedures 28782: Follow-up Ultrasound, per fetus [address]: 3D rendering with interpretation and reporting of computed tomography, magnetic resonance imaging, ultrasound, or other tomographic modality with image postprocessing under concurrent supervision; requiring image postprocessing on an independent workstation [id number]: Transvaginal Ultrasound (OB) Indication ----- --------- Screening for follow-up survey, Chronic hypertension affecting , History of prior with delivery, Supervision of high risk - MOB alcohol syndrome, T13 in prev , MOB club foot, christiano cisterna magna, 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 Para 4 [id number] Current ----- --------- Cell free DNA Low Risk analysis Maternal Assessment ----- --------- Physical Exam Height 165 cm, 5 ft 5 in. Weight 74 kg, 163 lb. BMI 27.12 kg/m Method ----- --------- Transabdominal and transvaginal ultrasound examination. View: Suboptimal view: limited by position ----- --------- Briscoe . Number of fetuses: 1 Dating ----- --------- LMP on: 03/24/2024 GA by LMP 26 w + 6 d HUGO by LMP: 12/29/2024 Ultrasound examination on: 09/28/2024 GA by U/S based upon: AC, BPD, Femur, HC GA by U/S 26 w + 5 d HUGO by U/S: 12/30/2024 Assigned: based on the LMP, selected on 08/27/2024 Assigned GA 26 w + 6 d Assigned HUGO: 12/29/2024 General Evaluation ----- --------- Cardiac activity Present. FHR 155 bpm. Presentation: cephalic Placenta: Placental site: anterior, away from cervical os Umbilical cord: Cord vessels: 3 vessel cord Amniotic fluid: Amount of AF: normal amount. MVP 6.2 cm Biometry ----- --------- BPD 62.7 mm 25w 3d 5% Hadlock OFD 88.2 mm 28w 3d 91% Gurdeep HC 246.0 mm 26w 5d 19% Hadlock Cerebellum tr 30.3 mm 26w 2d 56% Hill AC 224.8 mm 26w 6d 42% Hadlock Femur 51.7 mm 27w 4d 59% Hadlock Humerus 45.3 mm 26w 6d 43% Gurdeep HC / AC 1.09 Weight Calculation: EFW 1,017 g 45% Hadlock EFW (lb,oz) 2 lb 4 oz EFW by Hadlock ([id number]) Head / Face / Neck Biometry: Cephalic index 0.71 1% Nicolaides Executive Vp 7.3 mm CM 12.6 mm Extremities / Bony Struc Biometry: FL / BPD 0.82 FL / HC 0.21 FL / AC 0.23 Tibia 44.6 mm 27w 3d 64% Gurdeep Anatomy ----- --------- The following structures appear abnormal: Head/Neck: Cisterna magna. The following structures appear normal: Head / Neck Cranium. Lateral ventricles. Choroid plexus. Midline falx. Cavum septi pellucidi. Cerebellum. Parenchyma. Vermis. Neck. Face: Maxilla. Mandible. Heart/Thorax: Situs. Bicaval view. Cardiac position. Cardiac axis. Cardiac size. Cardiac rhythm. Diaphragm. Abdomen: Stomach. Kidneys. Bladder. Small bowel. Large bowel. Extremities/Skeleton: Right hand. Left foot. Skeleton The following structures could not be adequately visualized: Heart / Thorax 4-chamber view. 3-playbn-zotqruv view. Interventricular septum. Great vessels. The following structures were documented previously: Face Lips. Profile. Nose. Nasal bone. Orbits. Heart / Thorax RVOT view. LVOT view. 3-vessel view. Aortic arch view. Ductal arch view. Right lung. Left lung. Abdomen Abdom. wall. Cord insertion. Right renal artery. Left renal artery. Genitals. Spine: Cervical spine. Thoracic spine. Lumbar spine. Sacral spine. Extremities / Right upper arm. Right forearm. Left upper arm. Left forearm. Left hand. Right upper leg. Right lower leg. Right foot. Left upper leg. Left lower leg. Maternal Structures ----- --------- Uterus Visualized Cervix Visualized Approach - Transabdominal Right Ovary Visualized Size 38 mm x 21 mm x 14 mm. Vol 6.0 cm Left Ovary Visualized Size 27 mm x 29 mm x 19 mm. Vol 7.7 cm Cul de Sac Visualized Impression ----- --------- Single viable intrauterine with EFW measuring at the 45%. AC measures at the 42%. Amniotic fluid MVP measures 6.2 cm. Detailed neurosonogram was performed Shape and ossification of the skull: Appear within normal limits. Head biometries: The BPD is at the 5% and HC is at the 19% for the gestational age. Midline elements: The Cavum Septum Pellucidi and corpus callosum are present with normal shape and width for the gestational age. Pericallosal arteries were seen with apparently normal ramifications at cyngulate. The thalamus is identified not fused. Ventricular system: right-sided heterotopia noticed with abnormal lateral ventricle mcwilliams. No evidence of ventriculomegaly. Third and fourth ventricles appear normal. The choroid plexus shape and echogenicity appear within normal limits. Ventricle wall appears rough consistent with heterotopia. Posterior fossa: The transcerebellar diameter is a the 56% for the gestational age. The shape, development, and position of vermis and tentorium appears within normal limits. The tectal plate, midbrain, alejandro, and medulla were visualized without abnormalities. Christiano cisterna magna was seen with normal vermis. Impression: Overall examination after live, still, and 3D/4D image reconstruction on separate workstation showed: 1. Christiano cisterna magna identified measuring 12.6 mm. 2. Suspicion of heterotopia on the right lateral ventricle. Recommendations ----- --------- Please see [facility] documentation from today. Subsequent follow up or other follow up as clinically determined by primary OB provider unless otherwise specified by [facility]. Results forwarded to ordering provider so they can follow up with the patient as necessary. Procedure Note Trav Macdonald MD - 09/28/2024 NAME: YOSELIN TO : 1990 SEX: F Accession Number: [id number] ORDERING PHYSICIAN: TRAV MACDONALD REFERRING PHYSICIAN: DAVE CUELLAR Coding ----- --------- Procedures [id number]: Follow-up Ultrasound, per fetus [address]1009: 3D rendering with interpretation and reporting of computedtomography, magnetic resonance imaging, ultrasound, or other tomographic modality with image postprocessingunder concurrent supervision; requiring image postprocessing on an independent workstation [id number]: Transvaginal Ultrasound (OB) Indication ----- --------- Screening for follow-up survey, Chronic hypertension affecting ,History of prior with delivery, Supervision of high risk - MOB alcohol syndrome, T13 inprev , MOB club foot, christiano cisterna magna, 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 Para 4 [id number] Current ----- --------- Cell free DNA Low Risk analysis Maternal Assessment ----- --------- Physical Exam Height 165 cm, 5 ft 5 in. Weight 74 kg, 163 lb. BMI 27.12kg/m Method ----- --------- Transabdominal and transvaginal ultrasound examination. View: Suboptimalview: limited by position ----- --------- Briscoe . Number of fetuses: 1 Dating ----- --------- LMP on: 03/24/2024 GA by LMP 26 w + 6 d HUGO by LMP: 12/29/2024 Ultrasound examination on: 09/28/2024 GA by U/S based upon: AC, BPD, Femur, HC GA by U/S 26 w + 5 d HUGO by U/S: 12/30/2024 Assigned: based on the LMP, selected on 08/27/2024 Assigned GA 26 w + 6 d Assigned HUGO: 12/29/2024 General Evaluation ----- --------- Cardiac activity Present. FHR 155 bpm. Presentation: cephalic Placenta: Placental site: anterior, away from cervical os Umbilical cord: Cord vessels: 3 vessel cord Amniotic fluid: Amount of AF: normal amount. MVP 6.2 cm Biometry ----- --------- BPD 62.7 mm 25w 3d 5% Hadlock OFD 88.2 mm 28w 3d 91% Gurdeep HC 246.0 mm 26w 5d 19% Hadlock Cerebellum tr 30.3 mm 26w 2d 56% Hill AC 224.8 mm 26w 6d 42% Hadlock Femur 51.7 mm 27w 4d 59% Hadlock Humerus 45.3 mm 26w 6d 43% Gurdeep HC / AC 1.09 Weight Calculation: EFW 1,017 g 45% Hadlock EFW (lb,oz) 2 lb 4 oz EFW by Hadlock ([id number]) Head / Face / Neck Biometry: Cephalic index 0.71 1% Nicolaides Executive Vp 7.3 mm CM 12.6 mm Extremities / Bony Struc Biometry: FL / BPD 0.82 FL / HC 0.21 FL / AC 0.23 Tibia 44.6 mm 27w 3d 64% Gurdeep Anatomy ----- --------- The following structures appear abnormal: Head/Neck: Cisterna magna. The following structures appear normal: Head / Neck Cranium. Lateral ventricles. Choroid plexus. Midline falx.Cavum septi pellucidi. Cerebellum. Parenchyma. Vermis. Neck. Face: Maxilla. Mandible. Heart/Thorax: Situs. Bicaval view. Cardiac position. Cardiac axis. Cardiacsize. Cardiac rhythm. Diaphragm. Abdomen: Stomach. Kidneys. Bladder. Small bowel. Large bowel. Extremities/Skeleton: Right hand. Left foot. Skeleton The following structures could not be adequately visualized: Heart / Thorax 4-chamber view. 4-ajgfve-fmothzv view. Interventricularseptum. Great vessels. The following structures were documented previously: Face Lips. Profile. Nose. Nasal bone. Orbits. Heart / Thorax RVOT view. LVOT view. 3-vessel view. Aortic arch view.Ductal arch view. Right lung. Left lung. Abdomen Abdom. wall. Cord insertion. Right renal artery. Left renalartery. Genitals. Spine: Cervical spine. Thoracic spine. Lumbar spine. Sacral spine. Extremities / Right upper arm. Right forearm. Left upper arm. Leftforearm. Left hand. Right upper leg. Right lower leg. Right foot. Left upper leg. Left lower leg. Maternal Structures ----- --------- Uterus Visualized Cervix Visualized Approach - Transabdominal Right Ovary Visualized Size 38 mm x 21 mm x 14 mm. Vol 6.0 cm Left Ovary Visualized Size 27 mm x 29 mm x 19 mm. Vol 7.7 cm Cul de Sac Visualized Impression ----- --------- Single viable intrauterine with EFW measuring at the 45%. FetalAC measures at the 42%. Amniotic fluid MVP measures 6.2 cm. Detailed neurosonogram was performed Shape and ossification of the skull: Appear within normal limits. Head biometries: The BPD is at the 5% and HC is at the 19% for thegestational age. Midline elements: The Cavum Septum Pellucidi and corpus callosum arepresent with normal shape and width for the gestational age. Pericallosal arteries were seen with apparently normal ramifications atcyngulate. The thalamus is identified not fused. Ventricular system: right-sided heterotopia noticed with abnormal lateralventricle mcwilliams. No evidence of ventriculomegaly. Third and fourth ventricles appear normal. The choroid plexus shape andechogenicity appear within normal limits. Ventricle wall appears rough consistent with heterotopia. Posterior fossa: The transcerebellar diameter is a the 56% for thegestational age. The shape, development, and position of vermis and tentorium appears within normal limits. The tectal plate,midbrain, alejandro, and medulla were visualized without abnormalities. Christiano cisterna magna was seen with normal vermis. Impression: Overall examination after live, still, and 3D/4D image reconstruction onseparate workstation showed: 1. Christiano cisterna magna identified measuring 12.6 mm. 2. Suspicion of heterotopia on the right lateral ventricle. Recommendations ----- --------- Please see [facility] documentation from today. Subsequent follow up or other follow up as clinically determined byprimary OB provider unless otherwise specified by [facility]. Results forwarded to ordering provider so they can follow up with thepatient as necessary. us Trav Macdonald MD IMG US ORDERABLES Final Resul t * Ultrasound - Office (08/27/2024 8:47 AM EDT) Anatomical Region Laterality Modality AMB Ultrasound us Not In System Ref Prov IMG US ORDERABLES Final R esult from Last 3 Months Insurance * Guarantor: Nadine Wyatt Account Type Relation to Patient Date of Phone Billing Address Personal/Family Self 1990 [address] [facility] [address] [place] [address] [employer] Care Teams Hyster Driver Relationship Specialty Start Date End Date Jaime Wyatt PA-C [address] [place], [place] [id number] PCP - General Physician Eyewear Manufacturing Tech 03/18/18
--- OUTSIDE RECORDS SUMMARY | 2024-11-06 10:08 | XMS_ITS | Encounter Summary ---
Author Organization [facility] Address [address] [facility] [place] [address] Care Team Providers Care Customer Care Associate Name Role Phone Yoselin Jaime FERMIN Unavailable Unallocated, Noms Provider Primary Care Provi kwabena Encounter Details Date Type Department Care Team (Late st Contact Info) Description 09/29/2024 Abstract [facility] OB [address] [place] [address] Cuong Ortiz DO [facility] [address], [place] [address] Social History Tobacco Use Types Packs/Day Years [...] OB [address] [place] [address] Cuong Ortiz DO [address] [place] [address] documented as of this encounter Goals Goal Patient Goal Type Associated Problems Recent Progress Patient-Stated? Author Reminders Care Plan OB Reminders No Open Scheduling, Background documented as of this encounter Visit Diagnoses Not on filedocumented in this encounter Additional Health Concerns Active Problems Noted Date Diagnosed Date OB Reminders 06/23/2024 documented as of this encounter Care Teams Customer Care Associate Relationship Specialty Start Date End Date Unallocated, Noms Provider, [address] [place] [address] PCP - General 03/04/23 Jaime Wyatt PA [address] [place] [address] Referring Physician Physical Medicine and Rehabilitation 03/04/23 documented as of this encounter
--- OUTSIDE RECORDS SUMMARY | 2024-11-06 10:08 | XMS_ITS | Encounter Summary ---
Author Organization [facility] tem Address [id number] [address] [place] [address] Care Team Providers Care Drawing Machine Operator Name Role Phone Jaime Wyatt PA-C Primary Care Provider [phone] Encounter Details Date Type Department Care Team ([facility] Contact Info) Description 03/26/2022 Telephone Maternal- Medicine at [facility] [address] [place] [address] Tamika Branch LPN Social History Tobacco Use Types Packs/Day Years Used Date Smoking Tobacco: Every Day Vaping/E-cigarettes Smokeless Tobacco: Never Alcohol Use Standard Drinks/Week Comments No 0 (1 standard drink = 0.6 oz pur e alcohol) AUDIT-C Answer Date Recorded Frequency of Alcohol Consumption Never 03/18/2018 Average Number of Drinks Not on file Frequency of Binge Drinking Not on file 07/2017 Childcare Answer Date Recorded Childcare Unknown 11/26/2018 Employment Answer Date Recorded Employment Unknown 11/26/2018 Purpose - Life Answer Date Recorded Purpose and direction in life Unknown Comments No Sex and Gender Information Value Date Recorded Sex Assigned at Not on file Legal Sex Female 11:46 AM EDT Gender Identity Not on file Sexual Orientation Not on file COVID-19 Exposure Response Date Recorded In the last month, have you been in contact with someone who was confirmed or suspected to have Coronavirus / COVID-19? No / Unsure 03/28/2022 12:57 PM EDT documented as of this encounter Plan of Treatment Upcoming Encounters Date Type Department Care Team (Late st Contact Info) Description 11/16/2024 1:00 PM EDT Appointment [facility] - [facility] US Imaging [address] [place] [address] 11/16/2024 2:30 PM EDT Office Visit Maternal- Medicine at [facility] [address] [place] [address] Trav Fatima MD [address] [facility] [address] [place] [address] documented as of this encounter Visit Diagnoses Not on filedocumented in this encounter Care Teams Drawing Machine Operator Relationship Specialty Start Date End Date Jaime Wyatt PA-C [address] [place] [address] [phone] PCP - General Physician Candles Pourer 03/18/18 documented as of this encounter
--- OUTSIDE RECORDS SUMMARY | 2024-11-06 10:08 | XMS_ITS | Encounter Summary ---
Author Organization [facility] Address [address] [place] [address] Care Team Providers Care Web Marketing Specialist Name Role Phone Unavailable Primary Care Provider Unavailabl e Source Comments In the event this information is protected by the Federal Confidentiality of Alcohol and Drug AbusePatient Records regulations: The Federal rules restrict any use of the information to criminally investigate or prosecute any alcohol or drug abuse patient.[facility] Encounter Details Date Type Department Care Team (Late st Contact Info) Description 02/10/2022 Lab Requisition [facility] [address] [place] [address] Eleazar Hess PA-C [address] [facility] [place] [id number] Social History Tobacco Use Types Packs/Day Years Used Date Smoking Tobacco: Never Assessed Comments Unknown Sex and Gender Information Value Date Recorded Sex Assigned at Not on file Legal Sex Female 3:56 PM EDT Gender Identity Not on file Sexual Orientation Not on file documented as of this encounter Plan of Treatment Not on file documented as of this encounter Procedures Procedure Name Priority Date/Time Associated Diagnosis Comments ANTIMICROBIAL SUSCEPT-ANAEROBE Routine 02/05/2022 8:00 PM EDT ORGANISM TARYN Routine 02/05/2022 8:00 PM EDT ORGANISM ID ANAEROBE Routine 02/05/2022 8:00 PM EDT documented in this encounter Results * ANTIMICROBIAL SUSCEPT-ANAEROBE (02/05/2022 8:00 PM EDT) Final Report SEE NOTE 02/22/2022 1:25 PM EDT [employer] Comment: Finegoldia magna Organism identified by client INTERPRETIVE INFORMATION: Anaerobe Susceptibility Panel Units = ug/mL ANAMIC Meropenem <=0.03 None Ampicillin/Sulbactam <=.25/.12 None Piperacillin/Tazobactam <=1/4 None Penicillin <=0.5 None Metronidazole 1 None Clindamycin >=32 None Interpretive Information See Note At the present time there are no CLSI guidelines for performance and/or interpretation of susceptibility testing for anaerobes other than Bacteroides fragilis group by the broth microdilution method. Unable to provide interpretation for TARYN values. Susceptibility performed by non-standardized methodology. Interpret results with caution. REKHA M Beta-Lactamase Neg Performed by [facility] [facility], [address] [place] [address] [email or web address], Piero Beaver MD, PHD, Lab. Director Micro Specimen SPECIMEN FROM ABSCESS / Unknown 02/05/2022 8:00 PM EDT 02/10/2022 3:57 PM EDT Eleazar Hess PA-C LABORATORY Final Result [facility] [address] [place] [address] * (ABNORMAL) ORGANISM TARYN (02/05/2022 8:00 PM EDT) Culture, Organism TARYN Result Finegoldia magna(A) MINIMUM INHIBITORY CONCENTRATION ([place]) 02/24/2022 2:08 PM EDT [facility] Micro Specimen SPECIMEN FROM ABSCESS / Unknown 02/05/2022 8:00 PM EDT 02/10/2022 3:57 PM EDT Narrative [facility] - 02/24/2022 2:08 PM EDT Susceptibility results have been completed by [facility]. us Eleazar Hess PA-C LABORATORY Final Result Performing Organization Address City/[facility]/ZIP Co de Phone Number [facility] [address] [facility] [address] [address], [place] * (ABNORMAL) ORGANISM ID ANAEROBE (02/05/2022 8:00 PM EDT) Culture, Organism ID Anaerobe Finegoldia magna(A) 02/16/2022 3:33 PM EDT [facility] Micro Specimen SPECIMEN FROM ABSCESS / Unknown 02/05/2022 8:00 PM EDT 02/10/2022 3:57 PM EDT us Eleazar Hess PA-C LABORATORY Final Result Performing Organization Address [facility]/ZIP Co de Phone Number [facility] [address] [address], [place] documented in this encounter Visit Diagnoses Not on filedocumented in this encounter
--- OUTSIDE RECORDS SUMMARY | 2024-11-06 10:08 | XMS_ITS | Clinical Summary ---
Author Organization [facility] Address [address] [place], [place] [address] Care Team Providers Care Junior Systems Analyst Name Role Phone Unavailable Primary Care Provider Unavailabl e Social History Tobacco Use Types Packs/Day Years Used Date Smoking Tobacco: Never Assessed Comments Unknown Sex and Gender Information Value Date Recorded Sex Assigned at Not on file Legal Sex Female 3:56 PM EDT Gender Identity Not on file Sexual Orientation Not on file Plan of Treatment Not on file Insurance * Guarantor: Nadine Wyatt Account Type Relation to Patient Date of Phone Billing Address Personal/Family Self 1990 na (Home) [address] [place] [address] [place] BCBS [place]
--- OUTSIDE RECORDS SUMMARY | 2024-11-06 10:08 | XMS_ITS | Patient Health Record ---
Author Organization [facility] Address [address] [place] [address] Care Team Providers Care [employer] Name Role Phone Laron Pulliam Primary Care Provider [phone] Allergies Allergen (clinical drug ingredient) Drug/Non Drug Allergy documented on EMR Reaction Allergy Type Onset Date Status bee pollen Bee Pollen Unknown Drug Allergy Activ e Substance with sulfonamide structure and antibacterial mechanism of action (substance) Sulfa Antibiotics Unknown Drug Allergy Active Penicillin Unknown Drug Allergy Active Results Component Value Reference Range Notes CBC AUTO DIFF Reviewed date:10/26/2024 02:03:18 PM Interpretation: Performing Lab: Notes/Report: [facility] , White Blood Count 10.2 4.0-11.0 10 3/uL Red Blood Count 3.93 4.20-5.40 10 6/uL Hemoglobin 10.6 12.0-16.0 g/dL Hematocrit 32.6 36.0-48.0 % Mean Corpuscular Volume 83.0 81.0-99.0 fL Mean Corpuscular Hemoglobin 27.0 26.7-34.0 pg Mean Corpuscular HGB Conc 32.5 29.9-35.2 g/dL Red Cell Distribution Width 13.6 11.0-15.0 % Platelet Count 189 150-450 10 3/uL Mean Platelet Volume 9.6 9.5-13.5 fL Neutrophils Percent Auto 75.4 43.0-75.0 % Lymphocytes Percent Auto 15.4 20.5-60.0 % Monocytes Percent Auto 6.6 1.7-12.0 % Eosinophils Percent Auto 0.8 0.9-7.0 % Basophils Percent Auto 0.3 0.2-2.0 % Immature Granulocytes Pct Auto 1.5 0.0-0.5 % Neutrophils Absolute Auto 7.7 1.4-6.5 10 3/uL Lymphocytes Absolute Auto 1.6 1.2-3.8 10 3/uL Monocytes Absolute Auto 0.7 0.3-0.8 10 3/uL Eosinophils Absolute Auto 0.1 0.0-0.7 10 3/uL Basophils Absolute Auto 0.0 0.0-0.1 10 3/uL Immature Granulocytes Abs Auto 0.15 0.00-0.03 10 3/uL Performing Lab: see note - [facility] PROF 14(COMP METB) Reviewed date:10/26/2024 02:03:18 PM Interpretation: Performing Lab: Notes/Report: [facility] , Sodium 134 136-145 mmol/L Potassium 4.1 3.5-5.1 mmol/L Chloride 102 98-107 mmol/L Carbon Dioxide 24.0 21.0-32.0 mmol/L Anion Gap 12.1 Glucose 82 74-106 mg/dL Blood Urea Nitrogen 6.0 7.0-18.0 mg/dL Creatinine 0.55 0.55-1.02 mg/dL Estimated GFR ( Yu >60 >=60 mL/min/1.73m 2 Estimated GFR (Non- Madelyn >60 >=60 mL/min/1.73m 2 BUN Creatinine Ratio 10.9 Calcium 8.8 8.5-10.1 mg/dL Bilirubin Total 0.8 0.2-1.0 mg/dL Aspartate Amino Transferase 15 15-37 U/L Alanine Aminotransferase 14 14-59 U/L Alkaline Phosphatase 86 46-116 U/L Total Protein 6.9 6.4-8.2 g/dL Albumin Level 2.6 3.4-5.0 g/dL Globulin 4.3 Albumin Globulin Ratio 0.6 Performing Lab: see note ML - [facility] LB US OB BPP w non-stress Reviewed date:11/03/2024 08:40:24 PM Interpretation: Performing Lab: Notes/Report: Source Facility: [facility]-[address] [place] [address] [place] [address] Ultrasound Report Signed Patient: ZULEIKA WADDELL MR#: [id number] : 1990 Acct:[id number] Age/Sex: 34 / F ADM Date: 11/03/24 Loc: US Attending Dr: Dave Ortiz D.O. Ordering Physician: Dave Ortiz D.O. Date of Service: 11/03/24 Procedure(s): US OB BPP w non-stress Accession Number(s): [id number] cc: Dave Ortiz D.O.; Gera Pulliam M.D. [place] [address] Patient Name: ZULEIKA WADDELL MRN: [id number] date: 1990 Sex: F Assigned Patient Location: US Current Patient Location: Accession/Order Number: [id number] Exam Date: 11/03/2024 15:29 Report Date: 11/03/2024 15:31 At the request of: DAVE ORTIZ DO Procedure: US OB BPP w non-stress Ultrasound obstetrical biophysical profile HISTORY: [place] cisterna magna. In adequate breathing movement. Adequate gross body movement, tone and amniotic fluid volume. Total score 6 out of 8. Amniotic fluid index 11.1 cm within normal limits. heart rate 148 bpm. US/US OB BPP w non-stress IMPRESSION: Suboptimal biophysical profile. Score 6 out of 8. Impression dictated by: Aaron Boyce M.D. 11/03/2024 3:31 PM Dictation Location: [place] [address] Electronically authenticated by: [id number] Y Date: 11/03/2024 15:31 Dictated By: Aaron Boyce D.O. Signed By: 11/03/24 1533 DD/ 1531 TD/TT: Microfilm Equipment Inspector: [place] [address] Ultrasound Report Signed Patient: KJ WADDELL MR#: [id number] : 1990 Acct:[id number] Age/Sex: 34 / F ADM Date: 11/03/24 Loc: US Attending Dr: Dave Ortiz D.O. Ordering Physician: Dave Ortiz D.O. Date of Service: 11/03/24 Procedure(s): US OB BPP w non-stress Accession Number(s): [id number] cc: Dave Ortiz D.O. ; Gera Pulliam M.D. [place] [address] Patient Name: ZULEIKA WADDELL MRN: [id number] date: 1990 Sex: F Assigned Patient Loc ation: US Current Patient Location: Accession/Order Numb er: [id number] Exam Date: 11/03/2024 15:29 Report Date: 11/03/2024 15:31 At the request of: DAVE ORTIZ DO Procedure: US OB fet al BPP w non-stress Ultrasound obstetric al biophysical profile HISTORY: [place] ciste rna magna. In adequate br eathing movement. Adequate gross body movement, tone and amniotic fl uid volume. Total score 6 out of 8. Amniotic fluid index 11.1 cm within dayana l limits. heart rate 148 bpm. U S/US OB BPP w non-stress IMPRESSION: Suboptim al biophysical profile. Score 6 out of 8. Impression dictated by: Aaron Boyce M.D. 11/03/2024 3:31 PM Dictation Location: [place] [address] Electronically authenticated by: [id number] Y Date: 11/03/2024 15:31 Dictated By: Basilio Boyce D.O. Signed By: 11/03/24 1533 DD/ 1531 TD/TT: Microfilm Equipment Inspector: US OB growth Reviewed date:11/03/2024 08:40:24 PM Interpretation: Performing Lab: Notes/Report: Source Facility: [place] [address] [place] [address] Ultrasound Report Signed Patient: ZULEIKA WADDELL MR#: [id number] : 1990 Acct:[id number] Age/Sex: 34 / F ADM Date: 11/03/24 Loc: US Attending Dr: Dave Ortiz D.O. Ordering Physician: Dave Ortiz D.O. Date of Service: 11/03/24 Procedure(s): US OB growth Accession Number(s): [id number] cc: Dave Ortiz D.O.; Gera Pulliam M.D. The [place] [id number] Patient Name: ZULEIKA WADDELL MRN: [facility]:[id number] date: 1990 Sex: F Assigned Patient Location: US Current Patient Location: Accession/Order Number: [id number] Exam Date: 11/03/2024 16:30 Report Date: 11/03/2024 [...] Boyce M.D. 11/03/2024 4:34 PM Dictation Location: [place] [address] Electronically authenticated by: [id number] Y Date: 11/03/2024 16:34 Dictated By: Aaron Boyce D.O. Signed By: 11/03/24 1636 DD/ 1634 TD/TT: Microfilm Equipment Inspector: [place] [address] Ultrasound Report Signed Patient: KJ WADDELL MR#: [id number] : 1990 Acct:[id number] Age/Sex: 34 / F ADM Date: 11/03/24 Loc: US Attending Dr: Dave Ortiz D.O. Ordering Physician: Dave Ortiz D.O. Date of Service: 11/03/24 Procedure(s): US OB growth Accession Number(s): [id number] cc: Dave Ortiz D.O. ; Gera Pulliam M.D. [place] [address] Patient Name: ZULEIKA WADDELL MRN: [id number] date: 1990 Sex: F Assigned Patient Loc ation: US Current Patient Location: Accession/Order Numb er: [id number] Exam Date: 11/03/2024 16:30 Report Date: 11/03/2024 16:34 At the request of: DAVE ORTIZ DO Procedure: US OB growth Limited ultrasound HISTORY: Negative ci sterna magna. Fetus in cephalic presentation with longitudinal lie. Amniotic fluid index is 11.1 cm within dayana l limits. Largest fluid pocket measures 5.1 cm. The heart rate is 148 bpm. The estimated date of delivery 01/01/2025 with overall gestational age 31 weeks 4 days. Estimated weight is 1825 g within the 30th perc entile. Prominent cisterna magna present. Width 1.4 cm. Length of 4.5 cm. U S/US OB growth IMPRESSION: Prominen t cisterna magna. This measures 1.4 cm. Impression dictated by: Aarno Boyce M.D. 11/03/2024 4:34 PM Dictation Location: [place] [address] Electronically authenticated by: [id number] Y Date: 11/03/2024 16:34 Dictated By: Basilio Boyce D.O. Signed By: 11/03/24 1636 DD/ 1634 TD/TT: Microfilm Equipment Inspector: ECG 12 lead Reviewed date:09/23/2024 06:29:51 PM Interpretation: Performing Lab: Notes/Report: Source Facility: [facility]-[address] [place] [address] [place] [address] Electrocardiograph Report Signed Patient: ZULEIKA WADDELL MR#: [id number] : 1990 Acct:[id number] Age/Sex: 34 / F ADM Date: 09/23/24 Loc: ER Attending Dr: Ordering Physician: Renata Fox D.O. Date of Service: 09/23/24 Procedure(s): ECG 12 lead Accession Number(s): [id number] cc: [facility] Test Date: 2024-09-23 Pat Name: ZULEIKA WADDELL Department: Room: - Gender: Female Youth Associate: : 1990 Requested By: GERA PULLIAM Order Number: [id number] Reading MD: JOANA ANGULO Measurements Intervals [place] Rate: 95 P: 60 NV: 118 QRS: 73 QRSD: 78 T: 42 QT: 332 QTc: 385 Interpretive Statements 1100 Sinus rhythm 2210 Short NV interval 9150 abnormal ECG Compared to ECG 05/16/2021 19:44:03 Short NV interval now present Electronically Signed On 09-23-2024 14:08:31 EDT by JOANA ANGULO Dictated By: Joana Angulo M.D. Signed By: 09/23/24 1408 DD/ 1058 TD/TT: Microfilm Equipment Inspector: [place] [address] Electrocardiograph Report Signed Patient: KJ WADDELL MR#: [id number] : 1990 Acct:[id number] Age/Sex: 34 / F ADM Date: 09/23/24 Loc: ER Attending Dr: Ordering Physician: Renata Fox D.O. Date of Service: 09/23/24 Procedure(s): ECG 12 lead Accession Number(s): [id number] cc: [facility] Test Date: 2024-09-23 Pat Name: ZULEIKA ARTEAGA Department: 43 Room: - Gender: Female Youth Associate: : 1990 Requ ested By: GERA PULLIAM Order Number: [id number] Reading MD: JOANA ANGULO Measurements Intervals [place] Rate: 95 P: 60 NV: 118 QRS: 73 QRSD: 78 T: 42 QT: 332 QTc: 385 Interpretive Statements 1100 Sinus rhythm 2210 Short NV interval 9150 abnormal ECG Compared to ECG 04/19 19:44:03 Short NV interval no w present Electronically Yeni d On 09-23-2024 14:08:31 EDT by JOANA ANGULO Dictated By: Joana Oro M.D. Signed By: 09/23/24 1408 DD/ 1058 TD/TT: Microfilm Equipment Inspector: Manual Differential Reviewed date:09/23/2024 01:07:05 PM Interpretation: Performing Lab: Notes/Report: [facility] , Segmented Neutrophils % Manual 93.0 43.0-75.0 Band Neutrophils % 3.0 0-5 % Lymphocytes Percent Manual 2.0 20.5-60.0 % Monocytes Percent Manual 2.0 1.7-12.0 % Eosinophils Percent Manual 0.0 0.9-7.0 % Basophils Percent Manual 0.0 0.2-2.0 % Segmented Neut Absolute Manual 11.62 1.4-6.5 10 3/uL Band Neutrophils Absolute 0.4 0.0-0.3 10 3/uL Lymphocytes Absolute Manual 0.25 1.20-3.80 10 3/uL Monocytes Absolute Manual 0.25 0.30-0.80 10 3/ uL Eosinophils Absolute Manual 0.00 0.00-0.70 10 3/uL Basophils Abs Manual 0.00 0.00-0.10 10 3/uL Anisocytosis 1+ Performing Lab: see note ML - [facility] LB PROF 14(COMP METB) Reviewed date:09/23/2024 01:07:05 PM Interpretation: Performing Lab: Notes/Report: [facility] , Sodium 138 136-145 mmol/L Potassium 3.7 3.5-5.1 mmol/L Chloride 104 98-107 mmol/L Carbon Dioxide 23.1 21.0-32.0 mmol/L Anion Gap 14.6 Glucose 98 74-106 mg/dL Blood Urea Nitrogen 7.0 7.0-18.0 mg/dL Creatinine 0.62 0.55-1.02 mg/dL Estimated GFR ( Yu >60 >=60 mL/min/1.73m 2 Estimated GFR (Non- Madelyn >60 >=60 mL/min/1.73m 2 BUN Creatinine Ratio 11.3 Calcium 8.7 8.5-10.1 mg/dL Bilirubin Total 1.0 0.2-1.0 mg/dL Aspartate Amino Transferase 17 15-37 U/L Alanine Aminotransferase 11 14-59 U/L Alkaline Phosphatase 90 46-116 U/L Total Protein 7.2 6.4-8.2 g/dL Albumin Level 3.0 3.4-5.0 g/dL Globulin 4.2 Albumin Globulin Ratio 0.7 Performing Lab: see note ML - [facility] LB CBC AUTO DIFF Reviewed date:09/23/2024 01:07:05 PM Interpretation: Performing Lab: Notes/Report: [facility] , White Blood Count 12.5 4.0-11.0 10 3/uL Red Blood Count 4.15 4.20-5.40 10 6/uL Hemoglobin 11.4 12.0-16.0 g/dL Hematocrit 35.7 36.0-48.0 % Mean Corpuscular Volume 86.0 81.0-99.0 fL Mean Corpuscular Hemoglobin 27.5 26.7-34.0 pg Mean Corpuscular HGB Conc 31.9 29.9-35.2 g/dL Red Cell Distribution Width 14.1 11.0-15.0 % Platelet Count 172 150-450 10 3/uL Mean Platelet Volume 9.6 9.5-13.5 fL Performing Lab: see note ML - [facility] LB Reason For Referral No Information Medications Medication SIG (Take, Route, Frequency, Duration) Notes Start Date End Date Status Dicyclomine HCl 20 MG 1 tablet Orally QI D for 30 days 08/27/2024 Active Acetaminophen Extra Strength 500 MG 1 or 2 tablets Orally every 6 hrs as needed for pain for 30 days 08/27/2024 Active Triamcinolone Acetonide 0.1 % 1 application Externally twice daily for 10 days Active Promethazine HCl 25 MG 1 tablet as neede d Orally every 12 hrs for 30 day(s) 08/27/2024 Active Gummies 0.18-25 MG as directed Orally Active Ondansetron 4 MG Oral for 7 Days Active Ventolin HFA 108 (90 Base) MCG/ACT 2 puffs as needed Inhalation QID 08/27/2024 Active EpiPen 2-Long 0.3 MG/0.3ML as directed In jection once prn 08/28/2024 Active Social History Tobacco Use: Social History Observation Description Date Details (start date - stop date) Never Smoker NA - NA Tobacco Control (Standard) Question Answer Notes Tobacco use: Nonsmoker AUDIT-C (Standard) Question Answer Notes Did you have a drink containing alcohol in the p ast year? No Points 0 Interpretation Negative Problems Problem Type SNOMED Code ICD Code Onset Dates Problem Status W/U Status Risk Notes Problem Diarrhea (R19.7) Active confirmed Vital Signs Blood pressure diastolic 80 mm Hg 08/27/2024 Height 64 in 08/27/2024 Blood pressure systolic 124 mm Hg 08/27/2024 Weight 164.0 lbs 08/27/2024 BMI 28.15 kg/m2 08/27/2024 Encounters Encounter Location Date Provider Diagnosis [facility] [address] [place] [address] 08/27/2024 Laron Pulliam Diarrhea R19.7 [facility] [address] [place] [address] 08/27/2024 Laron Pulliam [facility] [address] [place] [address] 08/28/2024 Laron Pulliam [facility] [address] [place] [address] 09/23/2024 Laron Pulliam Assessments Encounter Date Diagnosis (ICD Code) Assessment Notes Treatment Notes Treatment Clinical Notes Section Notes 08/27/2024 Diarrhea (ICD-10 - R19.7) Plan Of Treatment Pending Test Test Name Order Date CULTURE, STOOL 08/27/2024 C DIFF TOX PCR STOOL 08/27/2024 Insurance Providers Payer Name Payer Address Payer Phone Subscriber Number Group Number Insured Name Patient Relationship to Insured Coverage Start Date Coverage End Date [employer] [place] [employer] [address] [address] [place] [phone] [id number] [id number] [place], [place] Self - patient is the insured Medical (General) History Medical History History ICD Code Asthma Depression Hypertension Surgical History Surgery Date(Month/Year) Breast reduction 2016 Open heart surgery [place]- Left
--- OUTSIDE RECORDS SUMMARY | 2024-11-06 10:08 | XMS_ITS | Encounter Summary ---
Author Organization [facility] tem Address [id number] [address] 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) Social History Tobacco Use Types Packs/Day Years Used Date Smoking Tobacco: Former Vaping/E-cigarettes Smokeless Tobacco: Never Alcohol Use Standard [...] Purpose and direction in life Unknown Comments Yes Sex and Gender Information Value [...] Info) Description 11/16/2024 1:00 PM EDT Appointment [facility] Imaging [address] [place] [phone] 11/16/2024 2:30 PM EDT Office Visit Maternal- Medicine at [facility] [address] [place] [phone] Trav Fatima MD [address] [place], [place] [phone] documented as of this encounter Procedures Procedure Name Priority Date/Time Associated Diagnosis Comments UNLISTED LAB TEST Routine 03/28/2022 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
[2024-11-06 10:14] VITALS: BP 120/69; PULSE 100
--- NOTE | 2024-11-06 10:17 | US_ITS ---
[address] [address] Patient Name: ZULEIKA WADDELL MRN: [id number] date: 1990 Sex: F [place]igned [place] [facility] [place] Location: Accession/Order Number: [id number] Exam Date: 11/06/2024 13:51 Report Date: 11/06/2024 14:00 At the request of: DAVE CUELLAR DO Procedure: US OB BPP w non-stress US OB BPP w non-stress 11/06/2024 11:40 AM SIGNS AND SYMPTOMS: ^02/24/2023 ^Failed BPP PROTOCOL: Grayscale and color Doppler sonographic images of the gravid uterus COMPARISON: 11/03/2024 FINDINGS: Estimated gestational age: 32 weeks and 3 days heart rate: 131 bpm. Amniotic fluid index: 12.1 cm. Biophysical profile: movements: 2/2 tone: 2/2 breathing movements: 2/2. Amniotic fluid volume: 2/2 US/US OB BPP w non-stress IMPRESSION: Biophysical profile score: 8/8 Estimated gestational age: 32 weeks and 3 days heart rate: 131 bpm. Amniotic fluid index: 12.1 cm. Impression dictated by: Jimy Giang M.D. 11/06/2024 2:00 PM Dictation Location: [employer] Electronically authenticated by: [id number] Y Date: 11/06/2024 14:00
== END 2024-11-06 11:22 | disposition home or self-care (01) ==
LOC: FBCO 10:04 → FBC 10:08
PROVIDERS: PCP Family Medicine; Visit Provider Obstetrics & Gynecology
DX: O26.893 Other specified pregnancy related conditions, third trimester (principal); Z3A.32 32 weeks gestation of pregnancy
CPT/HCPCS: 76818

== ENCOUNTER 2024-11-10 09:04 | Outpatient (OUT) | payer MEDICAID, SELFPAY ==
--- NOTE | 2024-11-10 | US_ITS ---
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 The reported gestational age is 33 weeks 0 days. The heart rate [id number] beats per minute. FINDINGS: TONE: 1 or more episodes of activity extension and flexion of extremity or opening and closing of the hand [Y] 2/2 GROSS BODY MOVEMENTS: 3 or more discrete body or limb movements [Y] 2/2 BREATHING MOVEMENTS: 1 or more episodes of breathing lasting at least 30 seconds [Y] 2/2 ANURAG: A single deepest vertical pocket of amniotic fluid greater than 2 cm [Y] 2/2 ANURAG: 15.2 cm . This is in normal range. Total score: 8/8 US/US OB BPP w non-stress IMPRESSION: NORMAL BIOPHYSICAL PROFILE Impression dictated by: Adela Mhaan M.D. 11/10/2024 10:08 AM Dictation Location: [place] [address] Electronically authenticated by: [id number] Y Date: 11/10/2024 10:08
[2024-11-10 09:39] VITALS: BP 119/72; PULSE 95
== END 2024-11-10 10:00 | disposition home or self-care (01) ==
LOC: US 09:05 → FBC 09:07
PROVIDERS: PCP Family Medicine; Visit Provider Obstetrics & Gynecology
DX: O26.843 Uterine size-date discrepancy, third trimester (principal); Z3A.33 33 weeks gestation of pregnancy; Q04.9 Congenital malformation of brain, unspecified
CPT/HCPCS: 76818

== ENCOUNTER 2024-11-17 09:05 | Outpatient (OUT) | payer MEDICAID, SELFPAY ==
--- NOTE | 2024-11-17 09:07 | US_ITS ---
The [address] [address] Patient Name: ZULEIKA WADDELL MRN: [id number] date: 1990 Sex: F Assigned Patient Location: [facility] Current Patient Location: Accession/Order Number: [id number] Exam Date: 11/17/2024 10:16 Report Date: 11/17/2024 10:17 At the request of: DAVE CUELLAR DO Procedure: US OB BPP w non-stress BIOPHYSICAL PROFILE: CLINICAL INFORMATION: Christiano cisterna magna COMPARISON: 11/10/2024 There is a single live intrauterine gestation in vertex presentation. The reported gestational age is 34 weeks 0 days. The heart rate measures 130 beats per minute. FINDINGS: TONE: 1 or more episodes of activity extension and flexion of extremity or opening and closing of the hand [Y] 2/2 GROSS BODY MOVEMENTS: 3 or more discrete body or limb movements [Y] 2/2 BREATHING MOVEMENTS: 1 or more episodes of breathing lasting at least 30 seconds [Y] 2/2 ANURAG: A single deepest vertical pocket of amniotic fluid greater than 2 cm [Y] 2/2 ANURAG: 13.7 cm. This is in normal range. Total score: 8/8 US/ OB BPP w non-stress IMPRESSION: NORMAL BIOPHYSICAL PROFILE Impression dictated by: Adela Mahan M.D. 11/17/2024 10:17 AM Dictation Location: [place] [address] Electronically authenticated by: [id number] Y Date: 11/17/2024 10:17
[2024-11-17 09:29] VITALS: BP 115/70; PULSE 83
== END 2024-11-17 10:05 | disposition home or self-care (01) ==
LOC: US 09:06 → FBC 09:08
PROVIDERS: PCP Family Medicine; Visit Provider Obstetrics & Gynecology
DX: O26.843 Uterine size-date discrepancy, third trimester (principal); Q04.9 Congenital malformation of brain, unspecified; Z3A.34 34 weeks gestation of pregnancy
CPT/HCPCS: 76818

== ENCOUNTER 2024-11-20 10:02 | Outpatient (OUT) | payer MEDICAID, SELFPAY ==
--- OUTSIDE RECORDS SUMMARY | 2024-08-25 09:45 | XMS_ITS ---
Author Organization [facility] vices Address [address] [place], [place] [address] Care Team Providers Care Station Repairer Name Role Phone Tiffany Petersen Primary Care Provider Ailyn Pringle [phone] REASON FOR VISIT Recall (A) 31 Social History Sex Assigned At : Social History Observation Description Sex Assigned At Female Encounters Encounter Location Date Provider Diagnosis Dental Main [address] [place], [place] [id number] 08/25/2024 Ailyn Pringle Plan Of Treatment No Information Progress Notes * Nadine WADDELLDOB: 2 (34 yo F)Acc No.[id number]:08/25/2024 Patient: Nadine BARRETT Provider: Bertin Pringle DMD :1990 A ge:34 Y S ex:Female Date:08/25/2024 Address:[address] [place] [address], [address] [facility]-[id number] Pcp:Tiffany Petersen Subjective: * Chief Complaints: * 1 . Recall (A) 31. * Medical History: Objective: * Vitals: Assessment: Plan: * Treatment: * Billing Information: * Visit Code: * Procedure Codes: * Electronic signature of Lilo Pringle DMD on 11/20/2024 at 10:04 AM EDT Sign off status: Pending * Provider: Bertin Pringle DMD Date: 0 08/25/2024 Generated for Vale coto/Judy/Kimberley on: 0 11/20/2024 10:04 AM EDT
--- OUTSIDE RECORDS SUMMARY | 2024-08-27 07:41 | XMS_ITS ---
Author Organization [facility] in [place] Address [address] [place] [address] Care Team Providers Care Supervisor Tumblers Name Role Phone Laron Avila Primary Care [...] Active Encounters Encounter Location Date Provider Diagnosis [address] [address] 08/27/2024 Laron Avila Plan Of Treatment Medication [...] Nadine WADDELL LDOB: [birth year] (34 yo F)Acc No.[id number]:08/27/2024 Patient: Nadine BARRETT Nishant :1990 A ge:34 Y S ex:Female Address:[address], [place] [address] * Refills Start Ventolin HFA Aerosol Solution, [...] Date: Generated for Vale coto/Judy/Faisalitting on: 0 11/20/2024 10:04 AM EDT
--- OUTSIDE RECORDS SUMMARY | 2024-08-28 07:32 | XMS_ITS ---
Author Organization The [facility] in [place] Address [address] [place] [address] Care Team Providers Care Sales Representative Womens Health Name Role Phone Laron Avila Primary Care Provider [phone] REASON FOR VISIT epi pen Medications Medication SIG (Take, Route, Frequency, Duration) Notes Start Date End Date Status EpiPen 2-Long 0.3 MG/0.3ML as directed In jection once prn 08/28/2024 Active Encounters Encounter Location Date Provider Diagnosis [address] [address] 08/28/2024 Laron Avila Plan Of Treatment Medication Medication Name Sig Start Date Stop Date Notes EpiPen 2-Long 0.3 MG/0.3ML as directed Injection once prn 0 08/28/2024 Progress Notes * Nadine WADDELL LDOB: [birth year] (34 yo F)Acc No.[id number]:08/28/2024 Patient: Nadine BARRETT :1990 A ge:34 Y S ex:Female Address:[address] [place] [address], [address] [place] [address] * Refills Start EpiPen 2-Long Solution Auto-injector, 0.3 MG/0.3ML, Injection, 1, as directed, once prn, Refills=11 * true * Date: Generated for Printi ng/Faxing/eTransmitting on: 0 11/20/2024 10:05 AM EDT
--- OUTSIDE RECORDS SUMMARY | 2024-09-11 06:30 | XMS_ITS ---
Author Organization [facility] vices Address [address] [place], [place] [phone] Care Team Providers Care Casino Dealer Name Role Phone TrinityMaryanaTiffany Primary Care Provider Ailyn Pringle [phone] REASON FOR VISIT Recall (A) 32 Medications [...] Location Date Provider Diagnosis Dental Main [address] [place], [place] [id number] 09/11/2024 Ailyn Pringle Plan Of Treatment No Information Progress Notes * Nadine WADDELLDOB: 2 (34 yo F)Acc No.[id number]:09/11/2024 Patient: Nadine BARRETT Provider: Bertin Pringle DMD :1990 A ge:34 Y S ex:Female Date:09/11/2024 Address:[address], [id number] Pcp:Tiffany Petersen Subjective: * Chief Complaints: * [...] of Lilo Pringle DMD on 11/20/2024 at 10:06 AM EDT Sign off status: Pending * Provider: Bertin Pringle DMD Date: 09/11/2024 Generated for Vale coto/Judy/Kimberley on: 0 11/20/2024 10:06 AM EDT
--- OUTSIDE RECORDS SUMMARY | 2024-09-23 09:05 | XMS_ITS ---
Author Organization The [facility] in [place] Address [address] [place] [address] Care Team Providers Care Principal Network Engineer Name Role Phone Laron Avila Primary Care Provider REASON FOR VISIT ER- check on Encounters Encounter Location Date Provider Diagnosis [address] [address] 09/23/2024 Laron Avila Plan Of Treatment No Information Progress Notes * Nadine WADDELL LDOB: [birth year] (34 yo F)Acc No.[id number]:09/23/2024 Patient: Nadine BARRETT :1990 A ge:34 Y S ex:Female Address:[address] [place] [address], [address] [address] * true * Date: Generated for Vale coto/Judy/eTransmitting on: 0 11/20/2024 10:04 AM EDT
--- OUTSIDE RECORDS SUMMARY | 2024-11-10 11:00 | XMS_ITS | Encounter Summary ---
Author Organization [facility] Address [address] [facility] [place] [address] Care Team Providers Care Drum Tender Name Role Phone Yoselin Jaime FERMIN Unavailable Unallocated, Noms Provider Primary Care Provi kwabena Reason for Visit * Reason Comments Routine Visit Encounter Details Date Type Department Care Team (Late st Contact Info) Description 11/10/2024 11:00 AM EDT Routine [facility] OB [address] [place] [place] [phone] Cuong Ortiz, DO [address] [facility] [address] [place], [facility]11 33 weeks gestation of ; Third trimester [...] deficit disorder) ADHD (attention deficit hyperactivity disorder) ([facility]) Anxiety Bacterial vaginosis Bipolar disorder Club foot Depression ([facility]) Female infertility Heart problem Hormone imbalance HISTORY PAST MEDICAL HISTORY SOCIAL HISTORY Past Medical History: Diagnosis Date Abscess ADD (attention deficit disorder) ADHD (attention deficit hyperactivity disorder) ([facility]) Anxiety Bacterial vaginosis Bipolar disorder Club foot Depression ([facility]) Female infertility Heart problem Heart Issue [...] nursing note reviewed. Exam conducted with a catalogue compiler present. Vitals: Estimated body mass index is [...] Adela De Souza LPN on behalf of: Coung Ortiz DO documented in this encounter Plan of Treatment Upcoming Encounters Date Type Department Care Team (Late st Contact Info) Description 11/23/2024 2:20 PM EDT Routine [facility] [address] [facility] [place] [phone] Cuong Ortiz DO [address] [facility] [address] documented as of this encounter Goals Goal [...] documented as of this encounter Care Teams Drum Tender Relationship Specialty Start Date End Date Unallocated, Noms Provider, [address] [place], [place] [phone] PCP - General 03/04/23 Jaime Wyatt PA [address], [place] [phone] Referring Physician Physical Medicine and Rehabilitation 03/04/23 documented as of this encounter
--- OUTSIDE RECORDS SUMMARY | 2024-11-16 12:43 | XMS_ITS | Encounter Summary ---
Author Organization [facility] tem Address [facility]-[id number] [address] [place] [address] Care Team Providers Care Silk Snapper Name Role Phone Jaime Wyatt PA-C Primary Care Provider + [phone] Reason for Visit * Diagnostic Imaging (Routine) - Pending Review Specialty Diagnoses / Procedures Referred By Sole t Referred To Contact Maternal and Medicine Diagnoses Supervision of high risk , antepartum Procedures US MFM with or without consult US MFM with or without consult Trav Macdonald MD [address], [address] [place] [address] Phone: tel: fax: Maternal- Medicine at [facility] [address] [place] [address] Phone: tel: fax: Referral ID Status Reason Start Date Expiration Date V isits Requested Visits Authorized [id number] Pending Review 11/16/2024 11/16/2025 1 1 Encounter Details Date Type Department Care Team (Latest Contact Info) Description 11/16/2024 12:43 PM EDT - 11/16/2024 11:59 PM EDT Hospital Encounter [facility] - MFM US Imaging [address] [place] [phone] Supervision of high risk , antepartum Discharge [...] Procedure Name Priority Date/Time Associated Diagnosis Comments [facility] OB FOLLOW-UP, 1 FETUS Routine 11/16/2024 3:01 PM EDT Supervision of high risk , antepartum documented in this encounter Results * [facility] OB FOLLOW-UP, 1 FETUS (11/16/2024 3:01 PM EDT) Anatomical Region Laterality Modality OB-[employer] Ultrasound 11/16/2024 1:48 PM EDT Narrative 11/16/2024 3:25 PM EDT NAME: BAIRON TO : 1990 SEX: F Accession Number: [id number] ORDERING PHYSICIAN: TRAV MACDONALD REFERRING PHYSICIAN: DAVE CUELLAR Coding ----- --------- Procedures 89098: Follow-up Ultrasound, per fetus 93590: Echocardiography, , cardiovascular system, real time with [...] ----- --------- OB History 7. Para 4 [id number] Current ----- --------- Cell free DNA Low [...] EFW (oz) 14 oz EFW by: Hadlock (QFG-YS-EJ-FL) Extended Tibia 58.9 mm 34w 3d 81% Gurdeep Assistant Women'S Basketball Coach 6.0 mm CM 14.6 mm Head / [...] Cerebellum. Face: Lips. Nose. Heart/Thorax: 4-chamber view. 0-yqgvkj-zmufudp view. Great vessels. Diaphragm. Abdomen: Stomach. Kidneys. [...] view documented previously 3-vessel view documented previously 7-uuhkmr-jjzfxfz view normal Aortic arch view documented previously [...] TO : 1990 SEX: F Accession Number: [id number] ORDERING PHYSICIAN: TRAV MACDONALD REFERRING PHYSICIAN: DAVE CUELLAR Coding ----- --------- Procedures 77179: Follow-[place] Ultrasound, [place] fetus [address]: Echocardiography, , cardiovascular system, real timewith image documentation (2D), with or without M-mode recording; follow-up or repeat study Indication ----- --------- Screening for follow-up survey, Chronic hypertension affecting ,History of prior with delivery, Supervision of high risk - MOB alcohol syndrome, T13 inprev , MOB club foot, allan cisterna magna, 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 Para 4 [id number] Current ----- --------- Cell free DNA Low [...] EFW (oz) 14 oz EFW by: Hadlock (KIG-ID-GY-FL) Extended Tibia 58.9 mm 34w 3d 81% Gurdeep Assistant Women'S Basketball Coach 6.0 mm CM 14.6 mm Head / [...] Cerebellum. Face: Lips. Nose. Heart/Thorax: 4-chamber view. 6-tcqhpt-smevljn view. Great vessels. Diaphragm. Abdomen: Stomach. Kidneys. [...] view documented previously 3-vessel view documented previously 5-zyjken-kkzrhxp view normal Aortic arch view documented previously [...] MFM. us Trav Macdonald MD [facility] [place]ABLES Final Resul t documented in this encounter Visit Diagnoses Diagnosis Supervision of high risk , antepartum documented in this encounter Additional Health Concerns Assessment Noted Time PHQ-9 Depression Total Score: 0 05/02/20 22 1:41 PM EST documented as of this encounter Care Teams Silk Snapper Relationship Specialty Start Date End Date Jaime Wyatt PA-C [address] [place], [place] [phone] PCP - General Physician Entry Level Project Engineer 03/18/18 documented as of this encounter
--- OUTSIDE RECORDS SUMMARY | 2024-11-16 14:30 | XMS_ITS | Encounter Summary ---
Author Organization [facility] [facility] tem Address [facility]-[id number] [address] 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 If there are any questions, please [...] documented as of this encounter Care Teams Foot Roentgenologist Relationship Specialty Start Date End Date Jaime Wyatt, SADAF [address] [place] [address] PCP - General Physician Hat Finisher 03/18/18 documented as of this encounter
--- OUTSIDE RECORDS SUMMARY | 2024-11-20 10:04 | XMS_ITS | Encounter Summary ---
Author Organization [facility] Address [address] [place] [address] Care Team Providers Care 3Rd Grade Reading Teacher Name Role Phone Yoselin Jaime FERMIN Unavailable Unallocated, Noms Provider Primary Care Provi kwabena Encounter Details Date Type Department Care Team (Late st Contact Info) Description 09/07/2024 Abstract [facility] OB [address] [place] [address] Cuong Ortiz DO [facility] [address], [place] [address] Social History Tobacco Use Types Packs/Day Years [...] PM EDT Routine [facility] OB [address] [place] [address] Cuong Ortiz DO [address] [place] [address] documented as of this encounter Goals Goal Patient Goal Type Associated Problems Recent Progress Patient-Stated? Author Reminders Care Plan OB Reminders No Open Scheduling, Background documented as of this encounter Visit Diagnoses Not on filedocumented in this encounter Additional Health Concerns Active Problems Noted Date Diagnosed Date OB Reminders 06/23/2024 documented as of this encounter Care Teams 3Rd Grade Reading Teacher Relationship Specialty Start Date End Date Unallocated, Noms Provider, [address] [place] [address] PCP - General 03/04/23 Jaime Wyatt PA [address] [place] [address] Referring Physician Physical Medicine and Rehabilitation 03/04/23 documented as of this encounter
--- OUTSIDE RECORDS SUMMARY | 2024-11-20 10:05 | XMS_ITS | Clinical Summary ---
Author Organization [facility] Address [address] [facility] [place] [address] Care Team Providers Care Process Control Engineer Name Role Phone Jaime Wyatt FERMIN Unavailable Unallocated, Noms Provider Primary Care [...] Encounters Date Type Department Care Team Description 11/17/2024 Clinisync Result Encounter N[facility] External Department Unsolicited Dave Ortiz DO 11/17/2024 Abstract [facility] OB [address] [place] [address] [place] [address] Dave Ortiz, DO 11/12/2024 Patient Outreach [facility] [phone] Elena Felix LPN 11/10/2024 11:00 AM EDT Routine [facility] B[facility] OB [address] [place] [address] Dave Ortiz, DO 33 weeks gestation of ; Third trimester 11/10/2024 Clinisync Result Encounter NOMS External Department Unsolicited Dave Ortiz, DO 11/10/2024 Bamboo flowsheet [facility] B[facility] OB [address] [place] [address] Dave Ortiz, DO 11/06/2024 Clinisync Result Encounter NOMS External Department Unsolicited Dave Ortiz, DO 11/03/2024 Clinisync Result Encounter NOMS External Department Unsolicited Dave Ortiz, DO 11/03/2024 Clinisync Result Encounter NOMS External Department Unsolicited Dave Ortiz, DO 10/26/2024 11:20 AM EDT Routine [facility] BCP OB [address] [place] [address] Dave Ortiz, DO 30 weeks gestation of ; Third trimester ; Nadia cisterna magna (CMS/HCC); 28 weeks gestation of ; SGA (small for gestational age) 10/26/2024 Clinisync Result Encounter NOMS External Department Unsolicited Dave Ortiz, DO 10/26/2024 Bamboo flowsheet [facility] BCP OB [address] [place] [address] Dave Ortiz, DO 10/20/2024 Telephone [facility] B[facility] OB [address] [place] [address] Dave Ortiz, DO 10/19/2024 11:30 AM EDT Ancillary Procedure [facility] BCP OB [address] [place] [address] Nadia cisterna magna ([facility]/HCC) 10/18/2024 Travel 10/12/2024 9:20 AM EDT Routine [facility] OB [address] [place] [address] Dave Ortiz, DO Third trimester ; 28 weeks gestation of ; Nadia cisterna magna (CMS/HCC) 10/12/2024 Patient Outreach [facility] [address] [place] [address] Elena Felix, LIQUEFACTION PLANT OPERATOR 10/12/2024 Bamboo flowsheet [facility] OB [address] [place] [address] Dave Ortiz, DO 09/29/2024 Orders Only [facility] OB [address] [place] [address] Destinee Vazquez, LIQUEFACTION PLANT OPERATOR 09/29/2024 Abstract [facility] OB [address] [place] [address] Dave Ortiz, 09/10/2024 11:10 AM EDT Routine [facility] OB [address] [place] [address] Dave Ortiz, Well woman exam with routine gynecological exam; STD exposure; Vaginal discharge; Second trimester ; 24 weeks gestation of 09/10/2024 Clinisync Result Encounter NOMS External Department Unsolicited Dave Ortiz, 09/10/2024 External Result Encounter NOMS External Department Unsolicited Dave Ortiz, DO 09/10/2024 Bamboo flowsheet [facility] OB [address] [place] [address] Dave Ortiz, 09/08/2024 Patient Outreach [facility] [address] [place] [address] Elena Felix, LIQUEFACTION PLANT OPERATOR 09/07/2024 Abstract [facility] OB [address] [place] [address] Dave Ortiz, DO 09/07/2024 Clinisync Result Encounter NOMS External Department Unsolicited Dave Ortzi, DO 09/07/2024 Telephone [facility] [address] [place] [address] Dave Ortiz, DO 08/28/2024 Abstract [facility] [address] [place] [address] Dave Ortiz, DO 08/25/2024 Telephone [facility] [address] [place] [address] Essie Platt MA from Last 3 Months Social History Tobacco [...] (173 lb) 11/10/2024 10:27 AM EDT Height 167.6 cm (5' 6 ) 10/24/2022 12:00 PM EDT Body Mass Index 27.92 10/24/2022 12:00 PM EDT Plan of Treatment Upcoming Encounters Date Type Department Care Team (Late st Contact Info) Description 11/23/2024 2:20 PM EDT Routine [facility] [place] [address] [place] [address] Dave Ortiz, DO [address] [place] [address] [place] [address] Health Maintenance Due Date Last Done Comments Influenza Vaccine (Season Ended) 2025 05/19/20 13, 04/29/2012 Pap Smear 09/11/2027 09/10/2024, 10/24/2022 Cervical Cancer Screening 10/25/2027 HPV/Cotest 10/25/2027 Goals Goal Patient Goal Type Associated Problems Recent Progress Patient-Stated? Author Reminders Care Plan OB Reminders No Open Scheduling, Background Procedures Procedure Name Priority Date/Time Associated Diagnosis Comments US OB BPP W NON-STRESS 11/17/2024 10:17 AM EDT POCT URINALYSIS DIPSTICK Routine 11/10/2024 10:32 AM EDT 33 weeks gestation of Third trimester US OB BPP W NON-STRESS 11/10/2024 10:08 AM EDT US OB BPP W NON-STRESS 11/06/2024 2:00 PM EDT US OB GROWTH 11/03/2024 4:34 PM EDT US OB BPP W NON-STRESS 11/03/2024 3:31 PM EDT ALL CBC WITH AUTO DIFF Routine 12:52 PM EDT [facility] CMP (CMP) (FOR REMOTE [facility] USE) Routine 10/26/2024 12:52 PM EDT POCT [...] WITH AUTO DIFF Routine 11:45 AM EDT from Last 3 Months Results * US OB BPP W NON-STRESS (11/17/2024 10:17 AM EDT) Only the most recent of4 resultswithin the time period is included. Anatomical Region Laterality Modality Other 11/17/2024 10:1 7 AM EDT Narrative 11/17/2024 10:19 [place] [address] Ultrasound Report Signed Patient: ZULEIKA WYATT MR#: [id number] : 1990 Acct:[id number] Age/Sex: 34 / F ADM Date: 11/17/24 Loc: US Attending Dr: Dave Ortiz D.O. Ordering Physician: Dave Ortiz D.O. Date of Service: 11/17/24 Procedure(s): US OB BPP w non-stress Accession Number(s): [id number] cc: Dave Ortiz D.O.; Ramon Avila M.D. The [address] [address] Patient Name: ZULEIKA WYATT MRN: [id number] date: 1990 Sex: F Assigned Patient Location: [facility] Current Patient Location: Accession/Order Number: [id number] Exam Date: 11/17/2024 10:16 Report Date: 11/17/2024 10:17 At the request of: DAVE ORTIZ DO Procedure: US OB BPP w non-stress BIOPHYSICAL PROFILE: CLINICAL INFORMATION: Nadia cisterna magna COMPARISON: 11/10/2024 There is a single live intrauterine gestation in vertex presentation. The reported gestational age is 34 weeks 0 days. The heart rate measures 130 beats per minute. FINDINGS: TONE: 1 or more episodes of activity extension and flexion of extremity or opening and closing of the hand [Y] 2/2 GROSS BODY MOVEMENTS: 3 or more discrete body or limb movements [Y] 2/2 BREATHING MOVEMENTS: 1 or more episodes of breathing lasting at least 30 seconds [Y] 2/2 ANURAG: A single deepest vertical pocket of amniotic fluid greater than 2 cm [Y] 2/2 ANURAG: 13.7 cm. This is in normal range. Total score: 8/8 US/US OB BPP w non-stress IMPRESSION: NORMAL BIOPHYSICAL PROFILE Impression dictated by: Adela Mahan M.D. 11/17/2024 10:17 AM Dictation Location: [place] [address] Electronically authenticated by: [id number] Y Date: 11/17/2024 10:17 Dictated By: Adela Mahan M.D. Signed By: 11/17/24 1019 DD/ 1017 TD/TT: Fusing Machine Feeder: Procedure Note Radiology, Radiologist, - 11/17/2024 [place] [address] Ultrasound Report Signed Patient: ZULEIKA WYATT LMR#: [id number] : 1990Acct:[id number] Age/Sex: 34 / FADM Date: 11/17/24 Loc: US Attending Dr: Dave Ortiz D.O. Ordering Physician: Dave Ortiz D.O. Date of Service: 11/17/24 Procedure(s): US OB BPP w non-stress Accession Number(s): [id number] cc: Dave Ortiz D.O.; Ramon Avila M.D. [place] [address] Patient Name: ZULEIKA WYATT MRN: [facility]:[id number] date: 1990 Sex: F Assigned Patient Location: [facility] Current Patient Location: Accession/Order Number: [id number] Exam Date: 11/17/2024 10:16 Report Date: 11/17/2024 10:17 At the request of: DAVE ORTIZ DO Procedure: US OB BPP w non-stress BIOPHYSICAL PROFILE: CLINICAL INFORMATION: Nadia cisterna magna COMPARISON: 11/10/2024 There is a single live intrauterine gestation in vertex presentation. The reported gestational age is 34 weeks 0 days. The heart ratemeasures 130 beats per minute. FINDINGS: TONE: 1 or more episodes of activity extension and flexion of extremity or opening and closing of the hand [Y] 2/2 GROSS BODY MOVEMENTS: 3 or more discrete body or limb movements [Y] 2/2 BREATHING MOVEMENTS: 1 or more episodes of breathing lastingat least 30 seconds [Y] 2/2 ANURAG: A single deepest vertical pocket of amniotic fluid greater than 2 cm [Y] 2/2 ANURAG: 13.7 cm. This is in normal range. Total score: 8/8 US/US OB BPP w non-stress IMPRESSION: NORMAL BIOPHYSICAL PROFILE Impression dictated by: Adela Mahan M.D. 11/17/2024 10:17 AM Dictation Location: [place] [address] Electronically authenticated by: [id number] Y Date: 0:17 Dictated By: Adela Mahan M.D. Signed By:11/17/24 1019 DD/ 1017 TD/TT: Fusing Machine Feeder: us Dave Ortiz DO [facility] Final Result * (ABNORMAL) POCT urinalysis dipstick manually resulted (11/10/2024 10:32 AM EDT) Only the most recent of4 resultswithin the time period is included. Color, UA Anna Clarity, UA Clear Glucose, UA Negative Negative - 2000(110) ++++ mg/dL Bilirubin, UA Negative Negative - 4(70) +++ mg/dL Ketones, UA Negative Negative - 160(16) ++++ mg/dL Spec Grav, UA 1.025 1 - 1.03 Blood, UA Negative Negative - 50 Rakesh/mcL pH, UA 6.0 5 - 9 Protein, UA Negative Negative - 1999(20) ++++ mg/dL Urobilinogen, UA 0.2 0.2 - 12 mg/dL Leukocytes, UA Trace Negative - 500+++ Matti/mcL Nitrite, UA Negative Negative - Positive Urine 11/10/2024 10:3 2 AM EDT Dave Ortiz DO POINT OF CARE TEST ENTER/EDIT OR DERABLES Final Result * US OB GROWTH (11/03/2024 4:34 PM EDT) Anatomical Region Laterality Modality Other 11/03/2024 4:34 PM EDT Narrative 11/03/2024 4:36 [place] [address] Ultrasound Report Signed Patient: ZULEIKA WYATT MR#: [id number] : 1990 Acct:[id number] Age/Sex: 34 / F ADM Date: 11/03/24 Loc: US Attending Dr: Dave Ortiz D.O. Ordering Physician: Dave Ortiz D.O. Date of Service: 11/03/24 Procedure(s): US OB growth Accession Number(s): [id number] cc: Dave Ortiz D.O.; Ramon Avila M.D. [address] [address] Patient Name: ZULEIKA WYATT MRN: [id number] date: 1990 Sex: F Assigned Patient Location: US Current Patient Location: Accession/Order Number: [id number] Exam Date: 11/03/2024 16:30 Report Date: 11/03/2024 [...] Boyce M.D. 11/03/2024 4:34 PM Dictation Location: [place] [address] Electronically authenticated by: [id number] Y Date: 11/03/2024 16:34 Dictated By: Aaron Boyce D.O. Signed By: 11/03/24 1636 DD/ 163 TD/TT: Fusing Machine Feeder: Procedure Note Radiology, Radiologist, MD - 11/03/2024 [place] [address] Ultrasound Report Signed Patient: ZULEIKA WYATT LMR#: [id number] : 1990Acct:[id number] Age/Sex: 34 / FADM Date: 11/03/24 Loc: US Attending Dr: Dave Ortiz D.O. Ordering Physician: Dave Ortiz D.O. Date of Service: 11/03/24 Procedure(s): US OB growth Accession Number(s): [id number] cc: Dave Ortiz D.O.; Ramon Avila M.D. The [address] [address] Patient Name: ZULEIKA WYATT MRN: [facility]:[id number] date: 1990 Sex: F Assigned Patient Location: Current Patient Location: Accession/Order Number: [id number] Exam Date: 11/03/2024 16:30 Report Date: 11/03/2024 16:34 At the request of: DAVE DIANA DO Procedure: US OB growth Limited ultrasound [...] Boyce M.D. 11/03/2024 4:34 PM Dictation Location: [facility] Electronically authenticated by: [id number] Y Date: 6:34 Dictated By: Aaron Boyce D.O. Signed By:11/03/246 DD/ 33 TD/TT: Fusing Machine Feeder: us Dave Ortiz DO [facility] Final Result * (ABNORMAL) [facility] CMP (CMP) (FOR REMOTE [facility] USE) (10/26/2024 12:52 PM EDT) SODIUM 134(L) 136 - 145 mmol/L [facility] POTASSIUM 4.1 3.5 - 5.1 mmol/L [facility] CHLORIDE 102 98 - 107 mmol/L [facility] CARBON DIOXIDE 24.0 21.0 - 32.0 mmol/L [facility] ANION GAP 12.1 [facility] GLUCOSE 82 74 - 106 mg/dL [facility] BLOOD UREA NITROGEN 6.0(L) 7.0 - 18.0 mg/dL [facility] CREATININE 0.55 0.55 - 1.02 mg/dL [facility] EGFR-AF NIGERIEN >60 >=60 mL/min/1. 73m 2 [facility] EGFR-NON AF NIGERIEN >60 >=60 mL/min/1. 73m 2 [facility] BUN [...] us Dave Diana DO [facility] Final Result [facility] * (ABNORMAL) ALL CBC WITH AUTO DIFF [...] us Dave Diana DO CLINIS[facility]NC Final Result [facility] * US OB follow up transabdominal approach [...] II, MD, PHD at 21-Oct-2024 08:41:57 AM [facility] Procedure Note Eloisa Gonzalez MD - [...] signed by ELOISA GONZALEZ II, MD, PHD [id number] 08:41:57 AM [facility] us Daev Diana DO IMG OB US PROCEDURES Final Resul t * RECURRENT VAGINITIS (HTRX) (09/10/2024 12:23 PM EDT) [facility] ATOPOBIUM VAGINAE 0.000 19.961 - 24.689 ppm 09/11/2024 6:30 AM EDT [facility] ATOPOBIUM VAGINAE Not Detected 19.961 - 24.689 ppm 09/11/2024 6:30 AM EDT [facility] BVAB 2,3 (BACTERIAL VAGINOSIS ASSOCIATED BACTERIA 2, 3); MOBILUNCUS SPP 0.000 19.961 - 24.689 ppm 09/11/2024 6:30 AM EDT [facility] BVAB 2,3 (BACTERIAL VAGINOSIS ASSOCIATED BACTERIA 2, 3); MOBILUNCUS SPP Not Detected 19.961 - 24.689 ppm 09/11/2024 6:30 AM EDT [facility] JEREMY ALBICANS, PARAPSILOSIS, TROPICALIS 0.000 19.961 - 30.770 ppm 09/11/2024 6:30 AM EDT [facility] JEREMY ALBICANS, PARAPSILOSIS, TROPICALIS Not Detected 19.961 - 30.770 ppm 09/11/2024 6:30 AM EDT [facility] JEREMY GLABRATA 0.000 23.000 - 32.138 ppm 09/11/2024 6:30 AM EDT [facility] JEREMY GLABRATA Not Detected 23.000 - 32.138 ppm 09/11/2024 6:30 AM EDT [facility] JEREMY KRUSEI 0.000 23.000 - 32.271 ppm 09/11/2024 6:30 AM EDT [facility] JEREMY KRUSEI Not Detected 23.000 - 32.271 ppm 09/11/2024 6:30 AM EDT [facility] CHLAMYDIA TRACHOMATIS 0.000 23.000 - 31.467 ppm 09/11/2024 6:30 AM EDT [facility] CHLAMYDIA TRACHOMATIS Not Detected 23.000 - 31.467 ppm 09/11/2024 6:30 AM EDT [facility] GARDNERELLA VAGINALIS 0.000 19.961 - 24.689 ppm 09/11/2024 6:30 AM EDT [facility] GARDNERELLA VAGINALIS Not Detected 19.961 - 24.689 ppm 09/11/2024 6:30 AM EDT [facility] MEGASPHAERA (TYPES 1, 2) 0.000 19.961 - 24.689 ppm 09/11/2024 6:30 AM EDT [facility] MEGASPHAERA (TYPES 1, 2) Not Detected 19.961 - 24.689 ppm 09/11/2024 6:30 AM EDT [facility] NEISSERIA GONORRHOEAE 0.000 23.000 - 32.117 ppm 09/11/2024 6:30 AM EDT [facility] NEISSERIA GONORRHOEAE Not Detected 23.000 - 32.117 ppm 09/11/2024 6:30 AM EDT [facility] TRICHOMONAS VAGINALIS 0.000 23.000 - 32.119 ppm 09/11/2024 6:30 AM EDT [facility] TRICHOMONAS VAGINALIS Not Detected 23.000 - 32.119 ppm 09/11/2024 6:30 AM EDT [facility] MYCOPLASMA GENITALIUM 0.000 19.961 - 24.689 ppm 09/11/2024 6:30 AM EDT [facility] MYCOPLASMA GENITALIUM Not Detected 19.961 - 24.689 ppm 09/11/2024 6:30 AM EDT [facility] Tissue 09/10/2024 12:2 3 PM EDT 09/11/2024 1:40 AM EDT us Dave Eppso DO LAB BLOOD ORDERABLES Final Resul t [facility] [address] [place] [address] * IGP,APTIMA HPV,AGE GDLN (09/10/2024 11:42 AM EDT) AGE GDLN ACOG TESTING Note . [facility] Comment: TESTS RESULT FLAG UNITS REF RANGE LAB Clinician Provided Cytology Information Source.............[facility] Other.............. No. of containers..01 ThinPrep Vial Age Algo ACOG Krista... 30-65 01 FLAG LEGEND: L-Low Normal,H-High Normal,LL-Alert Low,HH-Alert High <-Panic Low,>-Panic High,A-Abnormal,AA-Critical Abnormal Performed at: 01 [facility] [place] [address] Joann Denney MD, IGP, APTIMA HPV, RFX 16/18,45 Note . [facility] Comment: TESTS RESULT FLAG UNITS REF RANGE LAB DIAGNOSIS: 02 NEGATIVE FOR INTRAEPITHELIAL LESION OR MALIGNANCY. Specimen adequacy: 02 Satisfactory for evaluation. No endocervical component is identified. An endocervical component is not commonly seen in the patient. Performed by: 02 Mindy Martel Beater Lead (ASCP) . 02 Note: Note 02 The [...] High <-Panic Low,>-Panic High,A-Abnormal,AA-Critical Abnormal Performed at: [address] [place] [address], [place] [address] Joann Denney MD, HPV APTIMA Negative Negative TB Comment: This nucleic acid amplification test detects fourteen high- risk HPV types (16,18,31,33,35,39,45,51,52,56,58,59,66,68) without differentiation. Performed at: =[address] [id number] Black[employer] Supervisor: Joann Denney MD, Phone: [phone] Performed at: [address] [id number] [employer] Supervisor: Joann Denney MD, Phone: [phone] 09/10/2024 11:4 2 AM EDT 09/10/2024 3:18 PM EDT Narrative [facility] - 09/14/2024 12:08 PM EDT [facility] us Dave Diana DO LAB BLOOD ORDERABLES Final Resul t [facility] * Pap Smear (09/10/2024 12:00 AM EDT) Swab Cervical swab / Unknown us [facility] Bcp Ob Diana Nurse LAB CYTOLOGY ORDERABLES Final Result EXTERNAL LAB * GLUCOSE 1 HOUR (09/07/2024 11:45 AM EDT) GLUCOSE 1 HOUR 102 <130 mg/dL [facility] 09/07/2024 11:4 5 AM EDT 09/07/2024 11:55 AM EDT Narrative [facility] - 09/07/2024 12:52 PM EDT Dave Diana DO LAB BLOOD ORDERABLES Final Resul t Performing Organization Address City/[facility] Co de Phone Number [facility] from Last 3 Months Additional Health Concerns Active Problems Noted Date Diagnosed Date OB Reminders 06/23/2024 Insurance * Guarantor: Zuleika Wyatt Account Type Relation to Patient Date of Phone Billing Address Personal/Family Self 1990 [address] [place] [address] [facility] MEDICAID [place] Care Teams Process Control Engineer Relationship Specialty Start Date End Date Unallocated, Noms Provider, [address] [place] [address] PCP - General 03/04/23 Jaime Wyatt PA [address] [place], [place] [phone] Referring Physician Physical Medicine and Rehabilitation 03/04/23
--- OUTSIDE RECORDS SUMMARY | 2024-11-20 10:05 | XMS_ITS | Encounter Summary ---
Author Organization [facility] Address [address] [facility] [place] [address] Care Team Providers Care Office Lead Name Role Phone Yoselin Jaime FERMIN Unavailable Unallocated, Noms Provider Primary Care Provi kwabena Encounter Details Date Type Department Care Team (Late st Contact Info) Description 10/16/2023 Clinisync Result Encounter NOMS External Department Unsolicited Dave Ortiz, [facility] [place], [place] [address] Social History Tobacco Use Types Packs/Day Years [...] Routine [facility] BCP OB [address] [place] [id number] Dave Ortiz DO [facility] [place] [address] documented as of this encounter Procedures Procedure Name Priority Date/Time Associated Diagnosis Comments US OB BPP W NON-STRESS 10/16/2023 3:05 PM EDT documented in this encounter Results * US OB BPP W NON-STRESS (10/16/2023 3:05 PM EDT) Anatomical Region Laterality Modality Other 10/16/2023 3:05 PM EDT Narrative 10/16/2023 3:08 [place] [address] Ultrasound Report Signed Patient: ZULEIKA WADDELL MR#: [id number] : 1990 Acct:[id number] Age/Sex: 33 / F ADM Date: 10/16/23 Loc: [facility] 250-[address]: Dave Ortiz D.O. Ordering Physician: Dave Ortiz D.O. Date of Service: 10/16/23 Procedure(s): US OB BPP w non-stress Accession Number(s): [id number] cc: Dave Ortiz D.O.; [place]ime [place] [address] Patient Name: ZULEIKA WADDELL MRN: [id number] date: 1990 Sex: F Assigned Patient Location: [facility] Current Patient Location: [facility] Accession/Order Number: [id number] Exam Date: 10/16/2023 14:10 Report Date: 10/16/2023 [...] Signed By: 10/16/23 1508 DD/ 1505 TD/TT: Delivery Lead: Procedure Note Radiology, Radiologist, - 10/16/2023 [place] [address] Ultrasound Report Signed Patient: ZULEIKA WADDELL LMR#: [id number] : 1990Acct:[id number] Age/Sex: 33 / FADM Date: 10/16/23 Loc: [facility] 250-[address]: Dave Ortiz D.O. Ordering Physician: Dave Ortiz D.O. Date of Service: 10/16/23 Procedure(s): US OB BPP w non-stress Accession Number(s): [id number] cc: Dave Ortiz D.O.; Jaime Waddell [place] [address] Patient Name: ZULEIKA WADDELL MRN: [id number] date: 1990 Sex: F Assigned Patient Location: [facility] Current Patient Location: [facility] Accession/Order Number: [id number] Exam Date: 10/16/2023 14:10 Report Date: 10/16/2023 [...] M.D. Signed By:10/16/23 1508 DD/ 1505 TD/TT: Delivery Lead: us Dave Ortiz DO [facility] Final Result documented in this encounter Visit Diagnoses Not on filedocumented in this encounter Care Teams Office Lead Relationship Specialty Start Date End Date Unallocated, Noms Provider, [address] [place], [place] [phone] PCP - General 03/04/23 Jaime Waddell PA [address] [place] [address] Referring Physician Physical Medicine and Rehabilitation 03/04/23 documented as of this encounter
--- OUTSIDE RECORDS SUMMARY | 2024-11-20 10:05 | XMS_ITS | Encounter Summary ---
Author Organization [facility] Address [address] [place] [address] Care Team Providers Care Teenage Babysitter Name Role Phone Unavailable Primary Care Provider Unavailabl e Source Comments In the event this information is protected by the Federal Confidentiality of Alcohol and Drug AbusePatient Records regulations: The Federal rules restrict any use of the information to criminally investigate or prosecute any alcohol or drug abuse patient.[facility] Encounter Details Date Type Department Care Team (Late st Contact Info) Description 02/10/2022 Lab Requisition [facility] [address] [place] [address] Eleazar Hess PA-C [address] [facility] [place] [phone] Social History Tobacco Use Types Packs/Day Years [...] Report SEE NOTE 02/22/2022 1:25 PM EDT [facility] [employer] Comment: Finegoldia magna Organism identified by client [...] caution. REKHA M Beta-Lactamase Neg Performed by [facility], [address] [place] [address] [email or web address] Piero Beaver MD, PHD, Lab. Director Micro Specimen SPECIMEN FROM ABSCESS / Unknown 02/05/2022 8:00 PM EDT 02/10/2022 3:57 PM EDT Eleazar Hess PA-C LABORATORY Final Result [facility] [address] [place] [address] * (ABNORMAL) ORGANISM TARYN (02/05/2022 8:00 PM EDT) Culture, Organism TARYN Result Finegoldia magna(A) MINIMUM INHIBITORY CONCENTRATION ([place]) 02/24/2022 2:08 PM EDT [facility] Micro Specimen SPECIMEN FROM ABSCESS / Unknown 02/05/2022 8:00 PM EDT 02/10/2022 3:57 PM EDT Narrative [facility] - 02/24/2022 2:08 PM EDT Susceptibility results have been completed by [facility]. us Eleazar Hess PA-C LABORATORY Final Result Performing Organization Address City/[facility]/ZIP Co de Phone Number [facility] [address] [address], [place] * (ABNORMAL) ORGANISM ID ANAEROBE (02/05/2022 8:00 PM EDT) Culture, Organism ID Anaerobe Finegoldia magna(A) 02/16/2022 3:33 PM EDT [facility] Micro Specimen SPECIMEN FROM ABSCESS / Unknown 02/05/2022 8:00 PM EDT 02/10/2022 3:57 PM EDT us Eleazar Hess PA-C LABORATORY Final Result Performing Organization Address [facility]/ZIP Co de Phone Number [facility] [address] [address], [place] documented in this encounter Visit Diagnoses Not on filedocumented in this encounter
--- OUTSIDE RECORDS SUMMARY | 2024-11-20 10:05 | XMS_ITS | Encounter Summary ---
Author Organization [facility] Address [address] [facility] [place] [address] Care Team Providers Care Business Services Intern Name Role Phone Yoselin Jaime FERMIN Unavailable Unallocated, Noms Provider Primary Care Provi kwabena Encounter Details Date Type Department Care Team (Late st Contact Info) Description 11/07/2023 Clinisync Result Encounter NOMS External Department Unsolicited Dave Ortiz, [facility] [place], [place] [address] Social History Tobacco Use Types Packs/Day Years [...] Routine NOMS BCP OB [address] [place] [id number] Dave Ortiz DO [facility] [place] [address] documented as of this encounter Procedures Procedure Name Priority Date/Time Associated Diagnosis Comments US OB BPP W NON-STRESS 11/07/2023 7:10 AM EDT documented in this encounter Results * US OB BPP W NON-STRESS (11/07/2023 7:10 AM EDT) Anatomical Region Laterality Modality Other 11/07/2023 7:10 AM EDT Narrative 11/07/2023 7:13 [place] [address] Ultrasound Report Signed Patient: ZULEIKA WADDELL MR#: [id number] : 1990 Acct:[id number] Age/Sex: 33 / F ADM Date: 11/06/23 Loc: US Attending Dr: Dave Ortiz D.O. Ordering Physician: Dave Ortiz D.O. Date of Service: 11/06/23 Procedure(s): US OB BPP w non-stress Accession Number(s): [id number] cc: Dave Ortiz D.O.; Jaime Waddell [place] [address] Patient Name: ZULEIKA WADDELL MRN: [id number] date: 1990 Sex: F Assigned Patient Location: Current Patient Location: [facility] Accession/Order Number: [id number] Exam Date: 11/06/2023 14:19 Report Date: 11/07/2023 [...] M.D. Signed By: 11/07/23712 DD/ 9 TD/TT: Underground Miner: Procedure Note Radiology, Radiologist, - 11/07/2023 [place] [address] Ultrasound Report Signed Patient: ZULEIKA WADDELL LMR#: [id number] : 1990Acct:[id number] Age/Sex: 33 / FADM Date: 11/06/23 Loc: US Attending Dr: Dave Ortiz D.O. Ordering Physician: Dave Ortiz D.O. Date of Service: 11/06/23 Procedure(s): US OB BPP w non-stress Accession Number(s): [id number] cc: Dave Ortiz D.O.; Jaime Waddell [place] [phone] Patient Name: ZULEIKA WADDELL MRN: [id number] date: 1990 Sex: F Assigned Patient Location: Current Patient Location: [facility] Accession/Order Number: [id number] Exam Date: 11/06/2023 14:19 Report Date: 11/07/2023 [...] Crump M.D. Signed By:11/07/23712 DD/ 9 TD/TT: Underground Miner: us Dave Diana DO [facility] Final Result documented in this encounter Visit Diagnoses Not on filedocumented in this encounter Care Teams Business Services Intern Relationship Specialty Start Date End Date Unallocated, Noms Provider, [address] [place], [place] [phone] PCP - General 03/04/23 Jaime Waddell PA [address] [place] [address] Referring Physician Physical Medicine and Rehabilitation 03/04/23 documented as of this encounter
--- OUTSIDE RECORDS SUMMARY | 2024-11-20 10:05 | XMS_ITS | Encounter Summary ---
Author Organization [facility] Address [address] [facility] [place] [address] Care Team Providers Care Systems Auditor Name Role Phone Yoselin Jaime FERMIN Unavailable Unallocated, Noms Provider Primary Care Provi kwabena Encounter Details Date Type Department Care Team (Late st Contact Info) Description 10/21/2023 Clinisync Result Encounter NOMS External Department Unsolicited Dave Ortiz, [facility] [place], [place] [address] Social History Tobacco Use Types Packs/Day Years [...] Routine NOMS BCP OB [address] [place] [phone] Dave Ortiz [place] [facility] [address] documented as of this encounter Procedures Procedure Name Priority Date/Time Associated Diagnosis Comments US OB BPP W NON-STRESS 10/21/2023 7:34 AM EDT documented in this encounter Results * US OB BPP W NON-STRESS (10/21/2023 7:34 AM EDT) Anatomical Region Laterality Modality Other 10/21/2023 7:34 AM EDT Narrative 10/21/2023 7:37 [place] [address] Ultrasound Report Signed Patient: ZULEIKA WADDELL MR#: [id number] : 1990 Acct:[id number] Age/Sex: 33 / F ADM Date: 10/19/23 Loc: FBMT Attending Dr: Dave Ortiz D.O. Ordering Physician: Dave Ortiz D.O. Date of Service: 10/19/23 Procedure(s): US OB BPP w non-stress Accession Number(s): [id number] cc: Dave Ortiz D.O.; Jaime Waddell [place] [address] Patient Name: ZULEIKA WADDELL MRN: [id number] date: 1990 Sex: F Assigned Patient Location: [facility] Current Patient Location: [facility] Accession/Order Number: [id number] Exam Date: 10/19/2023 14:53 Report Date: 10/21/2023 [...] M.D. Signed By: 0537 DD/ 3 TD/TT: Mva Still Operator: Procedure Note Radiology, Radiologist, - 10/21/2023 The [place] [id number] Ultrasound Report Signed Patient: ZULEIKA WADDELL LMR#: [id number] : 1990Acct:[id number] Age/Sex: 33 / FADM Date: 10/19/23 Loc: FBCO Attending Dr: Dave Ortiz D.O. Ordering Physician: Dave Ortiz D.O. Date of Service: 10/19/23 Procedure(s): US OB BPP w non-stress Accession Number(s): [id number] cc: Dave Ortiz D.O.; Jaime Waddell [place] [id number] Patient Name: ZULEIKA WADDELL MRN: [facility]:[id number] date: 1990 Sex: F Assigned Patient Location: [facility] Current Patient Location: [facility] Accession/Order Number: [id number] Exam Date: 10/19/2023 14:53 Report Date: 10/21/2023 [...] M.D. Signed By:10/21/23 0737 DD/ 3 TD/TT: Mva Still Operator: us Dave Ortiz DO [facility] Final Result documented in this encounter Visit Diagnoses Not on filedocumented in this encounter Care Teams Systems Auditor Relationship Specialty Start Date End Date Unallocated, Noms Provider, [address] [place] [address] PCP - General 03/04/23 Jaime Waddell PA [address] [place], [place] [phone] Referring Physician Physical Medicine and Rehabilitation 03/04/23 documented as of this encounter
--- OUTSIDE RECORDS SUMMARY | 2024-11-20 10:05 | XMS_ITS | Encounter Summary ---
Author Organization [email or web address] Address [id number] [address] 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 Procedures US [facility] with or without consult Dave Ortiz DO Phone: tel: fax: Maternal- Medicine at [address] [address] Phone: tel: fax: Referral ID Status Reason Start Date Expiration Date V isits Requested Visits Authorized [id number] Pending Review 08/27/2024 08/27/2025 1 1 Encounter Details Date Type Department Care Team (Late st Contact Info) Description 08/27/2024 Orders Only Maternal- Medicine at [address] [address] Beronica Minaya CMA History of [...] documented in this encounter Results * US MFM COMPREHENSIVE ANATOMIC SURVEY (08/27/2024 2:35 PM EDT) Anatomical Region Laterality Modality OB-DIRECTOR MUSIC Ultrasound 08/27/2024 1:30 PM EDT Narrative 08/27/2024 5:23 PM EDT NAME: BAIRON TO : 1990 SEX: F Accession Number: [id number] ORDERING PHYSICIAN: DAVE ORTIZ REFERRING PHYSICIAN: DAVE ORTIZ Coding ----- --------- Procedures 95021: Ultrasound, uterus, real time with image documentation, and maternal evaluation plus detailed anatomic examination, transabdominal approach;single or first gestation 20695: Transvaginal Ultrasound (OB) Indication ----- --------- Screening for Anatomic Survey , Screening for cervical length , Chronic hypertension affecting , History of prior with delivery, Supervision of high risk - MOB alcohol syndrome, 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 Para 4 [id number] Current ----- --------- Cell free DNA Low [...] 1 lb 0 oz EFW by Hadlock ([id number]-FL) Head / Face / Neck Biometry: Cephalic index 0.70 <1% Nicolaides Biomass Technician 6.1 mm CM 9.9 mm >99% Nicolaides [...] Head / Neck Neck. Heart / Thorax 8-izxzfl-yzztncm view. Extremities / Right hand. Skeleton Maternal [...] 1.01 cm. Recommendations ----- --------- Please see MFM documentation from today. The patient is scheduled in four to six week(s) to complete anatomic survey. Subsequent follow up or other follow up as clinically determined by primary OB provider unless otherwise specified by MFM. Results forwarded to ordering provider so they can follow up with the patient as necessary. Procedure Note Alyson Packer MD - 08/27/2024 NAME: BAIRON TO : 1990 SEX: F Accession Number: [id number] ORDERING PHYSICIAN: DAVE ORTIZ REFERRING PHYSICIAN: DAVE ORTIZ Coding ----- --------- Procedures 36195: Ultrasound, uterus, real time with imagedocumentation, and maternal evaluation plus detailed anatomic examination, transabdominalapproach;single or first gestation 95719: Transvaginal Ultrasound (OB) Indication ----- --------- Screening for Anatomic Survey , Screening for cervical length , Chronichypertension affecting , History of prior with delivery, Supervision of high risk - MOBfetal alcohol syndrome, 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 Para 4 [id number] Current ----- --------- Cell free DNA Low [...] 1 lb 0 oz EFW by Hadlock ([id number]-FL) Head / Face / Neck Biometry: Cephalic index 0.70 <1% Nicolaides Biomass Technician 6.1 mm CM 9.9 mm >99% Nicolaides [...] Head / Neck Neck. Heart / Thorax 8-rykogw-meeusrd view. Extremities / Right hand. Skeleton Maternal [...] 1.01 cm. Recommendations ----- --------- Please see [facility] documentation from today. The patient is scheduled in four to six week(s) to complete anatomicsurvey. Subsequent follow up or other follow up as clinically determined byprimary OB provider unless otherwise specified by [facility]. Results forwarded to ordering provider so they can follow up with thepatient as necessary. us Dave R Diana DO IMG US ORDERABLES Final Result * [...] documented as of this encounter Care Teams Spray Foam Installer Relationship Specialty Start Date End Date Jaime Wyatt, SADAF [address] [place], [place] [phone] PCP - General Physician Computer Networking Instructor Adjunct 03/18/18 documented as of this encounter
--- OUTSIDE RECORDS SUMMARY | 2024-11-20 10:05 | XMS_ITS | Encounter Summary ---
Author Organization [facility] Address [address] [facility] [place] [address] Care Team Providers Care Rn Maternity Name Role Phone Yoselin Jaime FERMIN Unavailable Unallocated, Noms Provider Primary Care Provi kwabena Encounter Details Date Type Department Care Team (Late st Contact Info) Description 10/10/2023 Clinisync Result Encounter NOMS External Department Unsolicited Dave Ortiz, [facility] [place], [place] [address] Social History Tobacco Use Types Packs/Day Years [...] NOMS BCP OB [address] [place] [address] Dave Ortiz DO [facility] [place] [address] documented as of this encounter Procedures Procedure Name Priority Date/Time Associated Diagnosis Comments US OB GROWTH 10/10/2023 7:18 AM EDT documented in this encounter Results * US OB GROWTH (10/10/2023 7:18 AM EDT) Anatomical Region Laterality Modality Other 10/10/2023 7:18 AM EDT Narrative 10/10/2023 7:21 [place] [address] Ultrasound Report Signed Patient: ZULEIKA WADDELL MR#: [id number] : 1990 Acct:[id number] Age/Sex: 33 / F ADM Date: 10/09/23 Loc: US Attending Dr: Dave Ortiz D.O. Ordering Physician: Dave Ortiz D.O. Date of Service: 10/09/23 Procedure(s): US OB growth Accession Number(s): [id number] cc: Dave Ortiz D.O.; Jaime Waddell [place] [address] Patient Name: ZULEIKA WADDELL MRN: [id number] date: 1990 Sex: F Assigned Patient Location: [facility] Current Patient Location: US Accession/Order Number: [id number] Exam Date: 10/09/2023 15:20 Report Date: 10/10/2023 [...] M.D. Signed By: 10/10/23720 DD/ 7 TD/TT: Mortgage Collector: Procedure Note Radiology, Radiologist, MD - 10/10/2023 [place] [address] Ultrasound Report Signed Patient: ZULEIKA WADDELL LMR#: [id number] : 1990Acct:[id number] Age/Sex: 33 / FADM Date: 10/09/23 Loc: US Attending Dr: Dave Ortiz D.O. Ordering Physician: Dave Ortiz D.O. Date of Service: 10/09/23 Procedure(s): US OB growth Accession Number(s): [id number] cc: Dave Ortiz D.O.; Jaime Waddell [place] [address] Patient Name: ZULEIKA WADDELL MRN: [id number] date: 1990 Sex: F Assigned Patient Location: [facility] Current Patient Location: US Accession/Order Number: [id number] Exam Date: 10/09/2023 15:20 Report Date: 10/10/2023 [...] Dawn M.D. Signed By:10/10/23720 DD/ 7 TD/TT: Mortgage Collector: us Dave Diana DO [facility] Final Result documented in this encounter Visit Diagnoses Not on filedocumented in this encounter Care Teams Rn Maternity Relationship Specialty Start Date End Date Unallocated, Noms Prakash, [address] [place] [address] PCP - General 03/04/23 Jaime Waddell PA [address] [place], [place] [phone] Referring Physician Physical Medicine and Rehabilitation 03/04/23 documented as of this encounter
--- OUTSIDE RECORDS SUMMARY | 2024-11-20 10:05 | XMS_ITS | Encounter Summary ---
Author Organization [facility] Address [address] [place] [address] Care Team Providers Care Broadband Engineer Name Role Phone Yoselin Jaime FERMIN Unavailable Unallocated, Noms Provider Primary Care Provi kwabena Encounter Details Date Type Department Care Team (Late st Contact Info) Description 10/30/2023 Clinisync Result Encounter NOMS External Department Unsolicited Dave Ortiz, DO [facility] [place], [place] [address] Social History Tobacco Use Types Packs/Day Years [...] Routine NOMS BCP OB [address] [place] [phone] Dave Ortiz DO [facility] [place] [address] documented as of this encounter Procedures Procedure Name Priority Date/Time Associated Diagnosis Comments US OB BPP W NON-STRESS 10/30/2023 3:23 PM EDT documented in this encounter Results * US OB BPP W NON-STRESS (10/30/2023 3:23 PM EDT) Anatomical Region Laterality Modality Other 10/30/2023 3:23 PM EDT Narrative 10/30/2023 3:25 [place] [address] Ultrasound Report Signed Patient: ZULEIKA WADDELL MR#: [id number] : 1990 Acct:[id number] Age/Sex: 33 / F ADM Date: 10/30/23 Loc: US Attending Dr: Dave Ortiz D.O. Ordering Physician: Dave Ortiz D.O. Date of Service: 10/30/23 Procedure(s): US OB BPP w non-stress Accession Number(s): [id number] cc: Dave Ortiz D.O.; Jaime Waddell [place] [address] Patient Name: ZULEIKA WADDELL MRN: [id number] date: 1990 Sex: F Assigned Patient Location: [facility] Current Patient Location: Accession/Order Number: [id number] Exam Date: 10/30/2023 14:45 Report Date: 10/30/2023 [...] Signed By: 10/30/23 1525 DD/ 22 TD/TT: Encoding Machine Operator: Procedure Note Radiology, Radiologist, - 10/30/2023 [place] [address] Ultrasound Report Signed Patient: ZULEIKA WADDELL LMR#: [id number] : 1990Acct:[id number] Age/Sex: 33 / FADM Date: 10/30/23 Loc: US Attending Dr: Dave Ortiz D.O. Ordering Physician: Dave Ortiz D.O. Date of Service: 10/30/23 Procedure(s): US OB BPP w non-stress Accession Number(s): [id number] cc: Dave Ortiz D.O.; Jaime Waddell [place] [address] Patient Name: ZULEIKA WADDELL MRN: [id number] date: 1990 Sex: F Assigned Patient Location: [facility] Current Patient Location: Accession/Order Number: [id number] Exam Date: 10/30/2023 14:45 Report Date: 10/30/2023 [...] M.D. Signed By:10/30/23 152 DD/ 22 TD/TT: Encoding Machine Operator: us Dave Diana DO [facility] Final Result documented in this encounter Visit Diagnoses Not on filedocumented in this encounter Care Teams Broadband Engineer Relationship Specialty Start Date End Date Unallocated, Noms Provider, [address] [place] [address] PCP - General 03/04/23 Jaime Waddell PA [address] [place] [address] Referring Physician Physical Medicine and Rehabilitation 03/04/23 documented as of this encounter
--- OUTSIDE RECORDS SUMMARY | 2024-11-20 10:05 | XMS_ITS | Encounter Summary ---
Author Organization [facility] Address [address] [facility] [place] [address] Care Team Providers Care Photographic Process Screen Maker Name Role Phone Yoselin Jaime FERMIN Unavailable Unallocated, Noms Provider Primary Care Provi kwabena Encounter Details Date Type Department Care Team (Late st Contact Info) Description 06/26/2024 Abstract [facility] BCP OB [address] [place] [address] Cuong Ortiz, DO [address] [place], [place] [address] Social History Tobacco Use Types Packs/Day Years [...] Routine NOMS BCP OB [address] [place] [address] Cuong Ortiz, DO [address], [facility] documented as of this encounter Goals Goal Patient Goal Type Associated Problems Recent Progress Patient-Stated? Author Reminders Care Plan OB Reminders No Open Scheduling, Background documented as of this encounter Visit Diagnoses Not on filedocumented in this encounter Additional Health Concerns Active Problems Noted Date Diagnosed Date OB Reminders 06/23/2024 documented as of this encounter Care Teams Photographic Process Screen Maker Relationship Specialty Start Date End Date Unallocated, Noms Provider, [address] [place], [place] [address] PCP - General 03/04/23 Jaime Wyatt PA [address] [place] [address] Referring Physician Physical Medicine and Rehabilitation 03/04/23 documented as of this encounter
--- OUTSIDE RECORDS SUMMARY | 2024-11-20 10:05 | XMS_ITS | Encounter Summary ---
Author Organization [facility] Address [address] [facility] [place] [address] Care Team Providers Care Manager Publishing Name Role Phone Yoselin Jaime FERMIN Unavailable Unallocated, Noms Provider Primary Care Provi kwabena Encounter Details Date Type Department Care Team (Late st Contact Info) Description 10/10/2023 Clinisync Result Encounter NOMS External Department Unsolicited Dave Ortiz, DO [facility] [place], [place] [address] Social History Tobacco Use Types Packs/Day Years [...] NOMS BCP OB [address] [place] [phone] Dave Ortiz [place] [facility] [place] [address] documented as of this encounter Procedures Procedure Name Priority Date/Time Associated Diagnosis Comments US OB BPP W NON-STRESS 10/10/2023 7:13 AM EDT documented in this encounter Results * US OB BPP W NON-STRESS (10/10/2023 7:13 AM EDT) Anatomical Region Laterality Modality Other 10/10/2023 7:13 AM EDT Narrative 10/10/2023 7:15 [place] [address] Ultrasound Report Signed Patient: ZULEIKA WADDELL MR#: [id number] : 1990 Acct:[id number] Age/Sex: 33 / F ADM Date: 10/09/23 Loc: US Attending Dr: Dave Ortiz D.O. Ordering Physician: Dave Ortiz D.O. Date of Service: 10/09/23 Procedure(s): US OB BPP w non-stress Accession Number(s): [id number] cc: Dave Ortiz D.O.; Jaime Waddell [place] [address] Patient Name: ZULEIKA WADDELL MRN: [id number] date: 1990 Sex: F Assigned Patient Location: US Current Patient Location: US Accession/Order Number: [id number] Exam Date: 10/09/2023 15:20 Report Date: 10/10/2023 [...] M.D. Signed By: 04/714 DD/ 2 TD/TT: Commercial Airplane Pilot: Procedure Note Radiology, Radiologist, - 10/10/2023 [place] [address] Ultrasound Report Signed Patient: ZULEIKA WADDELL LMR#: [id number] : 1990Acct:[id number] Age/Sex: 33 / FADM Date: 10/09/23 Loc: US Attending Dr: Dave Ortiz D.O. Ordering Physician: Dave Ortiz D.O. Date of Service: 10/09/23 Procedure(s): US OB BPP w non-stress Accession Number(s): [id number] cc: Dave Ortiz D.O.; Jaime Waddell The [place] [phone] Patient Name: ZULEIKA WADDELL MRN: [id number] date: 1990 Sex: F Assigned Patient Location: US Current Patient Location: US Accession/Order Number: [id number] Exam Date: 10/09/2023 15:20 Report Date: 10/10/2023 [...] Dawn M.D. Signed By:10/10/23714 DD/ 2 TD/TT: Commercial Airplane Pilot: us Dave Ortiz DO [facility] Final Result documented in this encounter Visit Diagnoses Not on filedocumented in this encounter Care Teams Manager Publishing Relationship Specialty Start Date End Date Unallocated, Noms Provider, [address] [place] [address] PCP - General 03/04/23 Jaime Waddell PA [address] [place] [address] Referring Physician Physical Medicine and Rehabilitation 03/04/23 documented as of this encounter
--- OUTSIDE RECORDS SUMMARY | 2024-11-20 10:05 | XMS_ITS | Encounter Summary ---
Author Organization [facility] Address [address] [facility] [place] [address] Care Team Providers Care Legal Transcriptionist Name Role Phone Yoselin Jaime FERMIN Unavailable Unallocated, Noms Provider Primary Care Provi kwabena Encounter Details Date Type Department Care Team (Late st Contact Info) Description 12/13/2023 Abstract [facility] BCP OB [address] [facility] [place] [phone] Destinee Vazquez LPN [address] [facility] [place] [address] Social History Tobacco Use Types Packs/Day Years [...] PM EDT Routine [facility]S BCP OB [address] [facility] [place] [address] Cuong Ortiz DO [address] [facility] [address] [place] [id number] documented as of this encounter Visit Diagnoses Not on filedocumented in this encounter Care Teams Legal Transcriptionist Relationship Specialty Start Date End Date Unallocated, Noms Provider, [address] [place], [place] [phone] PCP - General 03/04/23 Jaime Wyatt PA [address] [place], [place] [phone] Referring Physician Physical Medicine and Rehabilitation 03/04/23 documented as of this encounter
--- OUTSIDE RECORDS SUMMARY | 2024-11-20 10:05 | XMS_ITS | Encounter Summary ---
Author Organization [facility] Address [address] [facility] [place] [address] Care Team Providers Care An Employee Sponsor Or Advocate And Name Role Phone Yoselin Jaime FERMIN Unavailable Unallocated, Noms Provider Primary Care Provi kwabena Encounter Details Date Type Department Care Team (Late st Contact Info) Description 08/28/2024 Abstract [facility] OB [address] [place] [address] Cuong Ortiz DO [facility] [address] [place], [place] [address] Social History Tobacco Use Types Packs/Day Years [...] [place] [address] Cuong Ortiz DO [address] [place] [address] [place] [address] documented as of this encounter Goals Goal Patient Goal Type Associated Problems Recent Progress Patient-Stated? Author Reminders Care Plan OB Reminders No Open Scheduling, Background documented as of this encounter Visit Diagnoses Not on filedocumented in this encounter Additional Health Concerns Active Problems Noted Date Diagnosed Date OB Reminders 06/23/2024 documented as of this encounter Care Teams An Employee Sponsor Or Advocate And Relationship Specialty Start Date End Date Unallocated, Noms Provider, [address] [place] [address] PCP - General 03/04/23 Jaime Wyatt PA [address] [place] [address] Referring Physician Physical Medicine and Rehabilitation 03/04/23 documented as of this encounter
--- OUTSIDE RECORDS SUMMARY | 2024-11-20 10:05 | XMS_ITS | Encounter Summary ---
Author Organization [facility] Address [address] [facility] [place] [address] Care Team Providers Care Tenter Frame Operator Name Role Phone Yoselin Jaime FERMIN Unavailable Unallocated, Noms Provider Primary Care Provi kwabena Encounter Details Date Type Department Care Team (Late st Contact Info) Description 11/18/2023 Abstract [facility] B[facility] OB [address] [facility] [place] [address] Destinee Vazquez LPN 102 [employer] [facility] Derek [place] [address] Social History Tobacco Use Types Packs/Day Years [...] PM EDT Routine [facility] [address] [facility] [place] [place] [address] Cuong Ortiz DO [address] [facility] [address] Derek [place] [id number] documented as of this encounter Visit Diagnoses Not on filedocumented in this encounter Care Teams Tenter Frame Operator Relationship Specialty Start Date End Date Unallocated, Noms Provider, [address] [place], [place] [phone] PCP - General 03/04/23 Jaime Wyatt PA [address] [place], [place] [phone] Referring Physician Physical Medicine and Rehabilitation 03/04/23 documented as of this encounter
--- OUTSIDE RECORDS SUMMARY | 2024-11-20 10:05 | XMS_ITS | Encounter Summary ---
Author Organization [facility] Address [address] [facility] [place] [address] Care Team Providers Care Cafe Lead Name Role Phone Yoselin Jaime FERMIN Unavailable Unallocated, Noms Provider Primary Care Provi kwabena Encounter Details Date Type Department Care Team (Late st Contact Info) Description 10/24/2023 Clinisync Result Encounter NOMS External Department Unsolicited Dave Ortiz, [facility] [place], [place] [address] Social History Tobacco Use Types Packs/Day Years [...] NOMS BCP OB [address] [place] [phone] Dave Ortiz DO [facility] [place] [address] documented as of this encounter Procedures Procedure Name Priority Date/Time Associated Diagnosis Comments US OB BPP W NON-STRESS 10/24/2023 7:37 AM EDT documented in this encounter Results * US OB BPP W NON-STRESS (10/24/2023 7:37 AM EDT) Anatomical Region Laterality Modality Other 10/24/2023 7:37 AM EDT Narrative 10/24/2023 7:40 [place] [address] Ultrasound Report Signed Patient: ZULEIKA WADDELL MR#: [id number] : 1990 Acct:[id number] Age/Sex: 33 / F ADM Date: 10/23/23 Loc: US Attending Dr: Dave Ortiz D.O. Ordering Physician: Dave Ortzi D.O. Date of Service: 10/23/23 Procedure(s): US OB BPP w non-stress Accession Number(s): [id number] cc: Dave Ortiz D.O.; Jaime Waddell [place] [address] Patient Name: ZULEIKA WADDELL MRN: [facility]:[id number] date: 1990 Sex: F Assigned Patient Location: US Current Patient Location: Accession/Order Number: [id number] Exam Date: 10/23/2023 15:25 Report Date: 10/24/2023 [...] M.D. Signed By: 10/24/23739 DD/ 6 TD/TT: Bake Room Worker: Procedure Note Radiology, Radiologist, - 10/24/2023 [place] [address] Ultrasound Report Signed Patient: ZULEIKA WADDELL LMR#: [id number] : 1990Acct:[id number] Age/Sex: 33 / FADM Date: 10/23/23 Loc: US Attending Dr: Dave Ortiz D.O. Ordering Physician: Dave Ortiz D.O. Date of Service: 10/23/23 Procedure(s): US OB BPP w non-stress Accession Number(s): [id number] cc: Dave Ortiz D.O.; Jaime Waddell [place] [phone] Patient Name: ZULEIKA WADDELL MRN: [facility]:[id number] date: 1990 Sex: F Assigned Patient Location: US Current Patient Location: US Accession/Order Number: [id number] Exam Date: 10/23/2023 15:25 Report Date: 10/24/2023 [...] Dawn M.D. Signed By:10/24/2340 DD/ 6 TD/TT: Bake Room Worker: us Dave Ortiz DO [facility] Final Result documented in this encounter Visit Diagnoses Not on filedocumented in this encounter Care Teams Cafe Lead Relationship Specialty Start Date End Date Unallocated, Noms Provider, [address] [place], [place] [phone] PCP - General 03/04/23 Jaime Waddell PA [address] [place] [address] Referring Physician Physical Medicine and Rehabilitation 03/04/23 documented as of this encounter
--- OUTSIDE RECORDS SUMMARY | 2024-11-20 10:05 | XMS_ITS | Encounter Summary ---
Author Organization [facility] Address [address] [facility] [place] [address] Care Team Providers Care Carbon Lamp Cleaner Name Role Phone Jaime Wyatt Unavailable Unallocated, Noms Provider Primary Care Provi kwabena Encounter Details Date Type Department Care Team (Late st Contact Info) Description 11/07/2023 Abstract [facility] BCP OB [address] [facility] [place] [address] Cuong Ortiz DO [facility] Viv[place], [place] [address] Social History Tobacco Use Types Packs/Day Years [...] Routine [facility]S BCP OB [address] [place] [address] Cuong Ortiz DO [facility] [place], [place] [phone] documented as of this encounter Visit Diagnoses Not on filedocumented in this encounter Care Teams Carbon Lamp Cleaner Relationship Specialty Start Date End Date Unallocated, Noms Provider, [address] [place], [place] [phone] PCP - General 03/04/23 Jaime Wyatt PA [address] [place], [place] [phone] Referring Physician Physical Medicine and Rehabilitation 03/04/23 documented as of this encounter
--- OUTSIDE RECORDS SUMMARY | 2024-11-20 10:05 | XMS_ITS | Encounter Summary ---
Author Organization [facility] Address [address] [facility] [place] [address] Care Team Providers Care Director Corporate Compliance Name Role Phone Yoselin Jaime FERMIN Unavailable Unallocated, Noms Provider Primary Care Provi kwabena Encounter Details Date Type Department Care Team (Late st Contact Info) Description 05/19/2024 Clinisync Result Encounter NOMS External Department Unsolicited Dave Ortiz, [facility] [place], [place] [address] Social History Tobacco Use Types Packs/Day Years [...] Routine NOMS BCP OB [address] [place] [phone] Dave Ortiz DO [facility] [place] [address] documented as of this encounter Procedures Procedure Name Priority Date/Time Associated Diagnosis Comments US OB TRANSVAGINAL 05/19/2024 7: 24 AM EST documented in this encounter Results * US OB TRANSVAGINAL (05/19/2024 7:24 AM EST) Anatomical Region Laterality Modality Other 05/19/2024 7:24 AM EST Narrative 05/19/2024 7:27 [place] [address] Ultrasound Report Signed Patient: ZULEIKA WADDELL MR#: [id number] : 1990 Acct:[id number] Age/Sex: 34 / F ADM Date: 05/18/24 Loc: US Attending Dr: Dave Ortiz D.O. Ordering Physician: Dave Ortiz D.O. Date of Service: 05/18/24 Procedure(s): US OB transvaginal Accession Number(s): [id number] cc: Dave Ortiz D.O.; YoselinJaime [place] [address] Patient Name: ZULEIKA WADDELL MRN: [id number] date: 1990 Sex: F Assigned Patient Location: US Current Patient Location: Accession/Order Number: [id number] Exam Date: 05/18/2024 17:15 Report Date: 05/19/2024 [...] M.D. Signed By: 05/19/24726 DD/ 3 TD/TT: Drilling Plant Operator: Procedure Note Radiology, Radiologist, - 05/19/2024 [place] [address] Ultrasound Report Signed Patient: ZULEIKA WADDELL LMR#: [id number] : 1990Acct:[id number] Age/Sex: 34 / FADM Date: 05/18/24 Loc: US Attending Dr: Dave Ortiz D.O. Ordering Physician: Dave Ortiz D.O. Date of Service: 05/18/24 Procedure(s): US OB transvaginal Accession Number(s): [id number] cc: Dave Ortiz D.O.; Jaime Waddell [place] [phone] Patient Name: ZULEIKA WADDELL MRN: [id number] date: 1990 Sex: F Assigned Patient Location: US Current Patient Location: Accession/Order Number: [id number] Exam Date: 05/18/2024 17:15 Report Date: 05/19/2024 [...] Crump M.D. Signed By:05/19/24726 DD/ 3 TD/TT: Drilling Plant Operator: us Dave Diana DO [facility] Final Result documented in this encounter Visit Diagnoses Not on filedocumented in this encounter Care Teams Director Corporate Compliance Relationship Specialty Start Date End Date Unallocated, Noms Provider, [address] [place] [address] PCP - General 03/04/23 Jaime Waddell PA [address] [place] [address] Referring Physician Physical Medicine and Rehabilitation 03/04/23 documented as of this encounter
--- OUTSIDE RECORDS SUMMARY | 2024-11-20 10:05 | XMS_ITS | Clinical Summary ---
Author Organization [facility] Address [address] [place] [address] Care Team Providers Care Neighborhood Aide Name Role Phone Unavailable Primary Care Provider [...] Billing Address Personal/Family Self 1990 na (Home) [address] [place] [address] [place] BCBS [place]ICA[place]
--- OUTSIDE RECORDS SUMMARY | 2024-11-20 10:05 | XMS_ITS | Clinical Summary ---
Author Organization [facility] tem Address [id number] [address] [place] [address] Care Team Providers Care Cath Lab Technologist Name Role Phone Jaime Wyatt PA-C Primary [...] 1 capsule by mouth in the morning. Active fluconazole (DIFLUCAN) 10 mg/mL suspension 3 [...] []Peds Surgery: [x]Peds Neurology: To have consult per pt request []Peds Neurosurgery: []Peds Craniofacial: []NICU Consult: []Palliative Care Consult: []SGM: []Life Connection: [][place]: [] MRI: []Nationwide: [][facility]: []UH: []MICHELLE CHS: Delivery Recommendation: [x] Term at local hospital [] Term at [facility] Surveillance Plan: [x] F/U Survey at _4-6_ weeks with Neurosonogram Sched 09/28/[address] 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 (Primary Dx); Christiano cisterna magna (CMS-HCC) - 11/16/2024 12:43 PM EDT - 11/16/2024 11:59 PM EDT Hospital Encounter [facility] - [facility] US Imaging [address] [place] [address] Supervision of high risk , antepartum Discharge Disposition: Home 11/16/2024 Travel 09/28/2024 2:00 PM EDT Office Visit Maternal- Medicine at [facility] [address] [place] [address] Trav Macdonald MD Christiano cisterna magna (CMS-HCC) - (Primary Dx); Nodular heterotopia (CMS-HCC) - ; 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 , 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 09/28/2024 12:43 PM EDT - 09/28/2024 11:59 PM EDT Hospital Encounter [facility] - [facility] US Imaging [address] [place] [address] 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 , 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; Family history of genetic disorder; Fetus with trisomy 13, single gestation; CM (congenital malformation); Suspected anomaly, antepartum, single or unspecified fetus Discharge Disposition: Home 09/28/2024 Travel 08/27/2024 2:30 PM EDT Telemedicine Maternal Medicine [place] [address] [address] Alyson Packer MD Suspected anomaly, antepartum, single or unspecified fetus (Primary Dx); 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 , 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; Family history of genetic disorder; Fetus with trisomy 13, single gestation; CM (congenital malformation) 08/27/2024 Travel 08/27/2024 Abstract Maternal- Medicine at [facility] [address] [place] [address] External, Scanning Provider 08/27/2024 Orders Only Maternal- Medicine at [facility] [address] [place] [address] Beronica Minaya, TEA AND SPICE SUPERVISOR 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 , [...] Pulse 87 11/16/2024 1:44 PM EDT Temperature 36.7 C (98.1 F) 05/18/2019 11:10 AM EST Respiratory Rate 16 05/18/2019 11:53 AM EST Oxygen Saturation 99% 05/18/2019 11:53 AM EST Inhaled Oxygen Concentration - - Weight 78.5 kg (173 lb) 11/16/2024 1:44 PM EDT Height 165.1 cm (5' 5 ) 11/16/2024 1:44 PM EDT Body Mass Index 28.79 11/16/2024 1:44 PM EDT Plan of Treatment Health Maintenance Due Date Last Done Comments Adult BMI Follow Up Plan 2010 Depression Screening 05/02/2023 05/02/2022 COVID-19 Vaccine (3 2023-2 5 season) 2024 03/14/2021, 02/06/2021 Influenza Vaccine 02/15/2025 05/19/2013, 04/29/2012 Adult BMI Screening 11/16/2025 11/16/2024 Tobacco Screening 11/16/2025 11/16/2024 Pap Smear 09/11/2027 09/10/2024, 10/24/2022 DTaP,Tdap and Td Vaccines (1 0 - Td or Tdap) 12/18/2032 12/18/2022, 07/07/2022, 11/07/2017, Additional history exists Medical Devices Not on file Procedures Procedure Name Priority Date/Time Associated Diagnosis Comments [facility] OB FOLLOW-UP, 1 FETUS Routine 11/16/2024 3:01 PM EDT Supervision of high risk , antepartum US [facility] OB FOLLOW-UP, 1 FETUS Routine 09/28/2024 2:38 PM EDT 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 Anatomical Region Laterality Modality OB-PERFORMANCE INSTRUCTOR Ultrasound 11/16/2024 1:48 PM EDT Narrative 11/16/2024 3:25 PM EDT NAME: YOSELIN TO : 1990 SEX: F Accession Number: [id number] ORDERING PHYSICIAN: TRAV MACDONALD REFERRING PHYSICIAN: DAVE CUELLAR Coding ----- --------- Procedures 19684: Follow-up Ultrasound, per fetus 20504: Echocardiography, , cardiovascular system, real time with [...] ----- --------- OB History 7. Para 4 [id number] Current ----- --------- Cell free DNA Low [...] EFW (oz) 14 oz EFW by: Hadlock ([id number]) Extended Tibia 58.9 mm 34w 3d 81% Gurdeep Thermostat Maker 6.0 mm CM 14.6 mm Head / [...] Cerebellum. Face: Lips. Nose. Heart/Thorax: 4-chamber view. 2-btdhoe-gebcdba view. Great vessels. Diaphragm. Abdomen: Stomach. Kidneys. [...] view documented previously 3-vessel view documented previously 5-wawzei-qjnluxl view normal Aortic arch view documented previously [...] the 33%. AC measures at the 63%. Christiano cisterna magna is again identified measuring Suspicion [...] Note Trav Macdonald MD - 11/16/2024 NAME: YOSELIN TO : 1990 SEX: F Accession Number: [id number] ORDERING PHYSICIAN: TRAV MACDONALD REFERRING PHYSICIAN: DAVE CUELLAR Coding ----- --------- Procedures 08153: Follow-up Ultrasound, per fetus 70652: Echocardiography, , cardiovascular system, real timewith image documentation (2D), with or without M-mode recording; follow-up or repeat study Indication ----- --------- Screening for follow-up survey, Chronic hypertension affecting ,History of prior with delivery, Supervision of high risk - MOB alcohol syndrome, T13 inprev , MOB club foot, christiano cisterna magna, 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 Para 4 [id number] Current ----- --------- Cell free DNA Low [...] EFW (oz) 14 oz EFW by: Hadlock (JJA-[id number]-[id number]-FL) Extended Tibia 58.9 mm 34w 3d 81% Gurdeep Thermostat Maker 6.0 mm CM 14.6 mm Head / [...] Cerebellum. Face: Lips. Nose. Heart/Thorax: 4-chamber view. 1-emrkix-hvmugsk view. Great vessels. Diaphragm. Abdomen: Stomach. Kidneys. [...] view documented previously 3-vessel view documented previously 1-yeopzg-sjmodqd view normal Aortic arch view documented previously [...] the 33%. FetalAC measures at the 63%. Christiano cisterna magna is again identified measuring Suspicion [...] specified by MFM. us Trav Macdonald MD IMG US ORDERABLES Final Resul t * Ultrasound - Office (08/27/2024 8:47 AM EDT) Anatomical Region Laterality Modality AMB Ultrasound us Not In System Ref Prov IMG US ORDERABLES Final R esult from Last 3 Months Insurance * Guarantor: Nadine Wyatt Account Type Relation to Patient Date of Phone Billing Address Personal/Family Self 1990 [address] [place] [address] [employer] Care Teams Cath Lab Technologist Relationship Specialty Start Date End Date Jaime Wyatt PA-C [address] [place] [phone] PCP - General Physician Flume Ride Operator 03/18/18
--- OUTSIDE RECORDS SUMMARY | 2024-11-20 10:05 | XMS_ITS | Encounter Summary ---
Author Organization [facility] Address [address] [facility] [place] [address] Care Team Providers Care Makeup Artist Name Role Phone Jaime Wyatt [place] Unavailable Unallocated, Noms Provider Primary Care Provi [facility] Encounter Details Date Type Department Care Team (Late st Contact Info) Description 12/19/[address] [facility] [address] [facility] [address] [place] [phone] Arden Orozco, DO [address] [facility] [address] [place] [address] Social History Tobacco Use Types [...] Routine NOMS BCP OB [address] [place] [address] Cuong Ortiz, [address] [place] [address] documented as of this encounter Visit Diagnoses Not on filedocumented in this encounter Care Teams Makeup Artist Relationship Specialty Start Date End Date Unallocated, Noms Provider, MD [place] [address] [address] PCP - General 03/04/23 Jaime Wyatt PA [address] [place] [address] Referring Physician Physical Medicine and Rehabilitation 03/04/23 documented as of this encounter
--- OUTSIDE RECORDS SUMMARY | 2024-11-20 10:05 | XMS_ITS | Encounter Summary ---
Author Organization [facility] Address [address] [facility] [place] [address] Care Team Providers Care Sheep Killer Name Role Phone YoselinJaime FERMIN Unavailable Unallocated, Noms Provider Primary Care Provi kwabena Encounter Details Date Type Department Care Team (Late st Contact Info) Description 04/26/2023 Clinisync Result Encounter NOMS External Department Unsolicited Dave Ortiz, DO [address] [place] [address] Social History Tobacco Use Types Packs/Day Years [...] NOMS BCP OB [address] [place] [address] Dave Ortiz DO [address] [place], [place] [phone] documented as of this encounter Procedures Procedure Name Priority Date/Time Associated Diagnosis Comments US OB TRANSVAGINAL 04/26/2023 8: 15 PM EST documented in this encounter Results * US OB TRANSVAGINAL (04/26/2023 8:15 PM EST) Anatomical Region Laterality Modality Other 04/26/2023 8:15 PM EST Narrative 04/26/2023 8:15 PM EST [address] [address] Ultrasound Report Signed Patient: ZULEIKA WADDELL MR#: [id number] : 1990 Acct:[id number] Age/Sex: 33 / F ADM Date: 04/26/23 Loc: US Attending Dr: Dave Ortiz D.O. Ordering Physician: Dave Ortiz D.O. Date of Service: 04/26/23 Procedure(s): US OB transvaginal Accession Number(s): [id number] cc: Dave Ortiz D.O.; Physician,Non-Staff Didi The [address] [address] Patient Name: ZULEIKA WADDELL MRN: [id number] date: 1990 Sex: F Assigned Patient Location: US Current Patient Location: US Accession/Order Number: [id number] Exam Date: 04/26/2023 09:40 Report Date: 04/26/2023 [...] M.D. Signed By: 04/26/232017 DD/ 14 TD/TT: Boat Joiner Helper: Procedure Note Radiology, Radiologist, MD - 04/26/2023 [place] [address] Ultrasound Report Signed Patient: ZULEIKA WADDELL LMR#: [id number] : 1990Acct:[id number] Age/Sex: 33 / FADM Date: 04/26/23 Loc: US Attending Dr: Dave Ortiz D.O. Ordering Physician: Dave Ortiz D.O. Date of Service: 04/26/23 Procedure(s): US OB transvaginal Accession Number(s): [id number] cc: Dave Ortiz D.O.; Physician,Non-Staff Didi The [place] [address] Patient Name: ZULEIKA WADDELL MRN: [id number] date: 1990 Sex: F Assigned Patient Location: US Current Patient Location: US Accession/Order Number: [id number] Exam Date: 04/26/2023 09:40 Report Date: 04/26/2023 [...] Dawn M.D. Signed By:04/26/232017 DD/ 14 TD/TT: Boat Joiner Helper: us Dave Ortiz DO [facility] Final Result documented in this encounter Visit Diagnoses Not on filedocumented in this encounter Care Teams Sheep Killer Relationship Specialty Start Date End Date Unallocated, Noms Provider, [address] [place] [address] PCP - General 03/04/23 Jaime Waddell PA [address] [place], [place] [phone] Referring Physician Physical Medicine and Rehabilitation 03/04/23 documented as of this encounter
--- OUTSIDE RECORDS SUMMARY | 2024-11-20 10:05 | XMS_ITS | Encounter Summary ---
Author Organization [facility] Address [address] [facility] [place] [address] Care Team Providers Care Coordinator Mining Products Name Role Phone Yoselin Jaime FERMIN Unavailable Unallocated, Noms Provider Primary Care Provi kwabena Encounter Details Date Type Department Care Team (Late st Contact Info) Description 11/06/2023 Clinisync Result Encounter NOMS External Department Unsolicited Dave Ortiz, [facility] [place], [place] [address] Social History Tobacco Use Types Packs/Day Years [...] Routine NOMS BCP OB [address] [place] [address] Dave Ortiz [place] [facility] [address] documented as of this encounter Procedures Procedure Name Priority Date/Time Associated Diagnosis Comments US OB GROWTH 11/06/2023 3:54 PM EDT documented in this encounter Results * US OB GROWTH (11/06/2023 3:54 PM EDT) Anatomical Region Laterality Modality Other 11/06/2023 3:54 PM EDT Narrative 11/06/2023 3:57 [place] [address] Ultrasound Report Signed Patient: ZULEIKA WADDELL MR#: [id number] : 1990 Acct:[id number] Age/Sex: 33 / F ADM Date: 11/06/23 Loc: US Attending Dr: Dave Ortiz D.O. Ordering Physician: Dave Ortiz D.O. Date of Service: 11/06/23 Procedure(s): US OB growth Accession Number(s): [id number] cc: Dave Ortiz D.O.; Jaime Waddell [place] [address] Patient Name: ZULEIKA WADDELL MRN: [id number] date: 1990 Sex: F Assigned Patient Location: US Current Patient Location: Accession/Order Number: [id number] Exam Date: 11/06/2023 14:19 Report Date: 11/06/2023 [...] M.D. Signed By: 11/06/231556 DD/ 53 TD/TT: Travel Registered Nurse Nicu: Procedure Note Radiology, Radiologist, MD - 11/06/2023 [place] [address] Ultrasound Report Signed Patient: ZULEIKA WADDELL LMR#: [id number] : 1990Acct:[id number] Age/Sex: 33 FADM Date: 11/06/23 Loc: US Attending Dr: Dave Ortiz D.O. Ordering Physician: Dave Ortiz D.O. Date of Service: 11/06/23 Procedure(s): US OB growth Accession Number(s): [id number] cc: Dave Ortiz D.O.; Jaime Waddell The [place] [address] Patient Name: ZULEIKA WADDELL MRN: [id number] date: 1990 Sex: F Assigned Patient Location: US Current Patient Location: Accession/Order Number: [id number] Exam Date: 11/06/2023 14:19 Report Date: 11/06/2023 [...] M.D. Signed By:11/06/23 1557 DD/ 53 TD/TT: Travel Registered Nurse Nicu: us Dave Diana DO [facility] Final Result documented in this encounter Visit Diagnoses Not on filedocumented in this encounter Care Teams Coordinator Mining Products Relationship Specialty Start Date End Date Unallocated, Noms Provider, [address] [place], [place] [address] PCP - General 03/04/23 Jaime Waddell PA [address] [place], [place] [phone] Referring Physician Physical Medicine and Rehabilitation 03/04/23 documented as of this encounter
--- OUTSIDE RECORDS SUMMARY | 2024-11-20 10:05 | XMS_ITS | Encounter Summary ---
Author Organization [facility] Address [address] [place] [address] Care Team Providers Care Recovery Room Rn Name Role Phone Yoselin Jaime FERMIN Unavailable Unallocated, Noms Provider Primary Care Provi kwabena Encounter Details Date Type Department Care Team (Late st Contact Info) Description 06/30/2024 Abstract [facility] OB [address] [place] [address] Cuong Ortiz, DO [address], [place] [address] Social History Tobacco Use Types Packs/Day Years [...] Routine [facility] OB [address] [place] [address] Cuong Ortiz, DO [address], [facility]11 documented as of this encounter Goals Goal Patient Goal Type Associated Problems Recent Progress Patient-Stated? Author Reminders Care Plan OB Reminders No Open Scheduling, Background documented as of this encounter Visit Diagnoses Not on filedocumented in this encounter Additional Health Concerns Active Problems Noted Date Diagnosed Date OB Reminders 06/23/2024 documented as of this encounter Care Teams Recovery Room Rn Relationship Specialty Start Date End Date Unallocated, Noms Provider, [address] [place], [place] [id number] PCP - General 03/04/23 Jaime Wyatt PA [address] [place] [address] Referring Physician Physical Medicine and Rehabilitation 03/04/23 documented as of this encounter
--- OUTSIDE RECORDS SUMMARY | 2024-11-20 10:05 | XMS_ITS | Encounter Summary ---
Author Organization [facility] Address [address] [facility] [place] [address] Care Team Providers Care Process Coach Name Role Phone Yoselin Jaime FERMIN Unavailable Unallocated, Noms Provider Primary Care Provi kwabena Encounter Details Date Type Department Care Team (Late st Contact Info) Description 06/06/2023 Abstract [facility] OB [address] [address] Destinee Vazquez LPN [address] [facility] [address] [place] [address] Social History Tobacco Use Types Packs/Day Years [...] PM EDT Routine [facility] OB [address] [place] [address] Cuong Ortiz DO [address] [facility] [address] [place] [id number] documented as of this encounter Visit Diagnoses Not on filedocumented in this encounter Care Teams Process Coach Relationship Specialty Start Date End Date Unallocated, Noms Provider, [address] [place], [place] [id number] PCP - General 03/04/23 Jaime Wyatt PA [address] [place], [place] [id number] Referring Physician Physical Medicine and Rehabilitation 03/04/23 documented as of this encounter
--- OUTSIDE RECORDS SUMMARY | 2024-11-20 10:05 | XMS_ITS | Encounter Summary ---
Author Organization [facility] Address [address] [facility] [place] [address] Care Team Providers Care Gasateria Attendant Name Role Phone YoselinJaime FERMIN Unavailable Unallocated, Noms Provider Primary Care Provi kwabena Encounter Details Date Type Department Care Team (Late st Contact Info) Description 11/17/2024 Clinisync Result Encounter [facility] External Department Unsolicited Dave Ortiz, DO [address] [place] [address] Social History Tobacco Use Types Packs/Day Years [...] Description 11/23/2024 2:20 PM EDT Routine [facility] OB [address] [place] [address] Dave Otriz, DO [address] [place] [address] (work) documented as of this encounter Goals Goal Patient Goal Type Associated Problems Recent Progress Patient-Stated? Author Reminders Care Plan OB Reminders No Open Scheduling, Background documented as of this encounter Procedures Procedure Name Priority Date/Time Associated Diagnosis Comments US OB BPP W NON-STRESS 11/17/2024 10:17 AM EDT documented in this encounter Results * US OB BPP W NON-STRESS (11/17/2024 10:17 AM EDT) Anatomical Region Laterality Modality Other 11/17/2024 10:1 7 AM EDT Narrative 11/17/2024 10:19 [place] [address] Ultrasound Report Signed Patient: ZULEIKA WADDELL MR#: [id number] : 1990 Acct:[id number] Age/Sex: 34 / F ADM Date: 11/17/24 Loc: US Attending Dr: Dave Ortiz D.O. Ordering Physician: Dave Ortiz D.O. Date of Service: 11/17/24 Procedure(s): US OB BPP w non-stress Accession Number(s): [id number] cc: Dave Ortiz D.O.; Ramon Avila M.D. [address] [address] Patient Name: ZULEIKA WADDELL MRN: [id number] date: 1990 Sex: F Assigned Patient Location: [facility] Current Patient Location: Accession/Order Number: [id number] Exam Date: 11/17/2024 10:16 Report Date: 11/17/2024 10:17 At the request of: DAVE ORTIZ DO Procedure: US OB BPP w non-stress BIOPHYSICAL PROFILE: CLINICAL INFORMATION: [facility] COMPARISON: 11/10/2024 There is a [...] Mahan M.D. 11/17/2024 10:17 AM Dictation Location: [place] [address] Electronically authenticated by: [id number] Y Date: 11/17/2024 10:17 Dictated By: Adela Mahan M.D. Signed By: 11/17/24 1019 DD/ 1017 TD/TT: Registered Radiographer: Procedure Note Radiology, Radiologist, MD - 11/17/2024 [place] [address] Ultrasound Report Signed Patient: ZULEIKA WADDELL LMR#: [id number] : 1990Acct:[id number] Age/Sex: 34 / FADM Date: 11/17/24 Loc: US Attending Dr: Dave Ortiz D.O. Ordering Physician: Dave Ortiz D.O. Date of Service: 11/17/24 Procedure(s): US OB BPP w non-stress Accession Number(s): [id number] cc: Dave Ortiz D.O.; Ramon Avila M.D. The [place] [address] Patient Name: ZULEIKA WADDELL MRN: [facility]:[id number] date: 1990 Sex: F Assigned Patient Location: [facility] Current Patient Location: Accession/Order Number: [id number] Exam Date: 11/17/2024 10:16 Report Date: 11/17/2024 10:17 At the request of: DAVE POLO DO Procedure: US OB BPP w non-stress BIOPHYSICAL PROFILE: CLINICAL INFORMATION: [facility] COMPARISON: 11/10/2024 There is a [...] Mahan M.D. 11/17/2024 10:17 AM Dictation Location: [place] [address] Electronically authenticated by: [id number] Y Date: 0:17 Dictated By: Adela Mahan M.D. Signed By:11/17/24 1019 DD/ 1017 TD/TT: Registered Radiographer: us Dave Ortiz DO [facility] Final Result documented in this encounter Visit Diagnoses Not on filedocumented in this encounter Additional Health Concerns Active Problems Noted Date Diagnosed Date OB Reminders 06/23/2024 documented as of this encounter Care Teams Gasateria Attendant Relationship Specialty Start Date End Date Unallocated, Noms Provider, [address] [place] [address] PCP - General 03/04/23 Jaime Waddell PA [address] [place] [address] Referring Physician Physical Medicine and Rehabilitation 03/04/23 documented as of this encounter
--- OUTSIDE RECORDS SUMMARY | 2024-11-20 10:06 | XMS_ITS ---
Author Organization [facility] Address [address] [place] [address] Care Team Providers Care Director Internal Control Name Role Phone Jaime Wyatt Unavailable Unallocated, Noms Provider Primary Care Provi kwabena [facility] Status:Enrolled (Active) Start date:08/11/2024 Enrollment date:08/12/2024 Enrollment reason:Identified by Health Plan Case Team Name Relationship Phone Elena Felix LPN(Responsible Staff) Licensed Prac tical Nurse Continued Care and Services Coordination
--- OUTSIDE RECORDS SUMMARY | 2024-11-20 10:06 | XMS_ITS | Encounter Summary ---
Author Organization [facility] tem Address [id number] [address] [place] [address] Care Team Providers Care Gambling Cashier Name Role Phone Jaime Wyatt PA-C Primary Care Provider [phone] Encounter Details Date Type Department Care Team (Late st Contact Info) Description 03/26/2022 Telephone Maternal- Medicine at [facility] [address] [place] [phone] Tamika Branch LPN Social History Tobacco Use [...] on filedocumented in this encounter Care Teams Gambling Cashier Relationship Specialty Start Date End Date Jaime Wyatt, SADAF [address] [place], [place] [id number] PCP - General Physician Apartment Assistant Manager 03/18/18 documented as of this encounter
--- OUTSIDE RECORDS SUMMARY | 2024-11-20 10:06 | XMS_ITS | Encounter Summary ---
Author Organization [facility] Address [address] [facility] [place] [address] Care Team Providers Care Mesh Man Name Role Phone Yoselin Jaime FERMIN Unavailable Unallocated, Noms Provider Primary Care Provi kwabena Encounter Details Date Type Department Care Team (Late st Contact Info) Description 09/29/2024 Abstract [facility] OB [address] [place] [address] Cuong Ortiz DO [facility] [address], [place] [address] Social History Tobacco Use Types Packs/Day Years [...] Routine [facility] B[facility] OB [address] [place] [address] Cuong Ortiz DO [address] [place] [address] [place] [address] documented as of this encounter Goals Goal Patient Goal Type Associated Problems Recent Progress Patient-Stated? Author Reminders Care Plan OB Reminders No Open Scheduling, Background documented as of this encounter Visit Diagnoses Not on filedocumented in this encounter Additional Health Concerns Active Problems Noted Date Diagnosed Date OB Reminders 06/23/2024 documented as of this encounter Care Teams Mesh Man Relationship Specialty Start Date End Date Unallocated, Noms Provider, [address] [place] [address] PCP - General 03/04/23 Jaime Wyatt PA [address] [place] [address] Referring Physician Physical Medicine and Rehabilitation 03/04/23 documented as of this encounter
--- OUTSIDE RECORDS SUMMARY | 2024-11-20 10:06 | XMS_ITS | Encounter Summary ---
Author Organization [facility] Address [address] [facility] [place] [address] Care Team Providers Care Utility Clerk Name Role Phone YoselinJaime FERMIN Unavailable Unallocated, Noms Provider Primary Care Provi kwabena Encounter Details Date Type Department Care Team (Late st Contact Info) Description 11/06/2024 Clinisync Result Encounter [facility] External Department Unsolicited Dave Ortiz, DO [address] [place] [address] Social History Tobacco Use Types Packs/Day Years [...] Description 11/23/2024 2:20 PM EDT Routine [facility] OB [address] [place] [address] Dave Ortiz, DO [address] [place] [address] [phone] (work) documented as of this encounter Goals Goal Patient Goal Type Associated Problems Recent Progress Patient-Stated? Author Reminders Care Plan OB Reminders No Open Scheduling, Background documented as of this encounter Procedures Procedure Name Priority Date/Time Associated Diagnosis Comments US OB BPP W NON-STRESS 11/06/2024 2:00 PM EDT documented in this encounter Results * US OB BPP W NON-STRESS (11/06/2024 2:00 PM EDT) Anatomical Region Laterality Modality Other 11/06/2024 2:00 PM EDT Narrative 11/06/2024 2:03 [place] [address] Ultrasound Report Signed Patient: ZULEIKA WADDELL MR#: [id number] : 1990 Acct:[id number] Age/Sex: 34 / F ADM Date: 11/06/24 Loc: [facility] Attending Dr: Dave Ortiz D.O. Ordering Physician: Dave Ortiz D.O. Date of Service: 11/06/24 Procedure(s): US OB BPP w non-stress Accession Number(s): [id number] cc: Dave Ortiz D.O.; Ramon Avila M.D. [address] [address] Patient Name: ZULEIKA WADDELL MRN: [id number] date: 1990 Sex: F [place]igned [place] [facility] [place] Patient Location: Accession/Order Number: [id number] Exam Date: 11/06/2024 13:51 Report Date: 11/06/2024 14:00 At the request of: DAVE ORTIZ DO Procedure: US OB BPP w non-stress US OB BPP w non-stress 11/06/2024 11:40 AM SIGNS AND SYMPTOMS: 02/24/2023 Failed BPP PROTOCOL: Grayscale and color Doppler sonographic images of the gravid uterus COMPARISON: 11/03/2024 FINDINGS: Estimated gestational age: 32 weeks and 3 days heart rate: 131 bpm. Amniotic fluid index: 12.1 cm. Biophysical profile: movements: 2/2 tone: 2/2 breathing movements: 2/2. Amniotic fluid volume: 2/2 US/US OB BPP w non-stress IMPRESSION: Biophysical profile score: 8/8 Estimated gestational age: 32 weeks and 3 days heart rate: 131 bpm. Amniotic fluid index: 12.1 cm. Impression dictated by: Jimy Giang M.D. 11/06/2024 2:00 PM Dictation Location: [facility] Electronically authenticated by: [id number] Y Date: 11/06/2024 14:00 Dictated By: Jimy Giang M.D. Signed By: 11/06/24 1403 DD/ 99 TD/TT: Inside Phone Sales: Procedure Note Radiology, Radiologist, MD - 11/06/2024 [place] [address] Ultrasound Report Signed Patient: ZULEIKA WADDELL LMR#: [id number] : 1990Acct:[id number] Age/Sex: 34 / FADM Date: 11/06/24 Loc: [facility] [place]ending Dr: Dave Ortiz D.O. Ordering Physician: Dave Ortiz D.O. Date of Service: 11/06/24 Procedure(s): US OB BPP w non-stress Accession Number(s): [id number] cc: Dave Ortiz D.O.; Ramon Avila M.D. [address] [place] [address] Patient Name: ZULEIKA WADDELL MRN: [id number] date: 1990 Sex: F Assigned Patient [place] [facility] [place] Patient Location: Accession/Order Number: [id number] Exam Date: 11/06/2024 13:51 Report Date: 11/06/2024 14:00 At the request of: DAVE ORTIZ DO Procedure: US OB BPP w non-stress US OB BPP w non-stress 11/06/2024 11:40 AM SIGNS AND SYMPTOMS: 02/24/2023 Failed BPP PROTOCOL: Grayscale and color Doppler sonographic images of the graviduterus COMPARISON: 11/03/2024 FINDINGS: Estimated gestational age: 32 weeks and 3 days heart rate: 131 bpm. Amniotic fluid index: 12.1 cm. Biophysical profile: movements: 2/2 tone: 2/2 breathing movements: 2/2. Amniotic fluid volume: 2/2 US/US OB BPP w non-stress IMPRESSION: Biophysical profile score: 8/8 Estimated gestational age: 32 weeks and 3 days heart rate: 131 bpm. Amniotic fluid index: 12.1 cm. Impression dictated by: Jimy Giang M.D. 11/06/2024 2:00 PM Dictation Location: [employer] Electronically authenticated by: [id number] Y Date: 4:00 Dictated By: Jimy Giang M.D. Signed By:11/06/24 1403 DD/ 1400 TD/TT: Inside Phone Sales: us Dave Diana DO [facility] Final Result documented in this encounter Visit Diagnoses Not on filedocumented in this encounter Additional Health Concerns Active Problems Noted Date Diagnosed Date OB Reminders 06/23/2024 documented as of this encounter Care Teams Utility Clerk Relationship Specialty Start Date End Date Unallocated, Noms Provider, [address] [place] [address] PCP - General 03/04/23 Jaime Waddell PA [address] [place] [address] Referring Physician Physical Medicine and Rehabilitation 03/04/23 documented as of this encounter
--- OUTSIDE RECORDS SUMMARY | 2024-11-20 10:06 | XMS_ITS | Patient Health Record ---
Author Organization [facility] [place] Address [address] [place] [address] Care Team Providers Care Beater Out Name Role Phone Laron Pulliam Primary Care Provider [phone] Allergies Allergen (clinical drug ingredient) Drug/Non Drug Allergy documented on EMR Reaction Allergy Type Onset Date Status bee pollen Bee Pollen Unknown Drug Allergy Activ e Substance with sulfonamide structure and antibacterial mechanism of action (substance) Sulfa Antibiotics Unknown Drug Allergy Active Penicillin Unknown Drug Allergy Active Results Component Value Reference Range Notes CBC AUTO DIFF Reviewed date:09/23/2024 01:07:05 PM Interpretation: Performing Lab: Notes/Report: [facility] , White Blood Count 12.5 4.0-11.0 [...] fL Performing Lab: see note ML - [facility] LB PROF 14(COMP METB) Reviewed date:09/23/2024 01:07:05 PM Interpretation: Performing Lab: Notes/Report: [facility] , Sodium 138 136-145 mmol/L Potassium [...] Globulin Ratio 0.7 Performing Lab: see note [facility] LB Manual Differential Reviewed date:09/23/2024 01:07:05 PM Interpretation: Performing Lab: Notes/Report: [facility] , Segmented Neutrophils % Manual 93.0 [...] 3/uL Anisocytosis 1+ Performing Lab: see note [facility] LB ECG 12 lead Reviewed date:09/23/2024 06:29:51 PM Interpretation: Performing Lab: Notes/Report: Source Facility: [place] [address] [place] [address] Electrocardiograph Report Signed Patient: ZULEIKA WADDELL MR#: [id number] : 1990 Acct:[id number] Age/Sex: 34 / F ADM Date: 09/23/24 Loc: ER Attending Dr: Ordering Physician: Renata Fox D.O. 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 Signed By: 09/23/24 1408 DD/ 1058 TD/TT: Administrative Supervisor: [place] [address] Electrocardiograph Report Signed Patient: KJ WADDELL MR#: [id number] : 1990 Acct:[id number] Age/Sex: 34 / F ADM Date: 09/23/24 Loc: ER Attending Dr: Ordering Physician: Renata Fox D.O. 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 Signed By: 09/23/24 1408 DD/ 1058 TD/TT: Administrative Supervisor: CBC AUTO DIFF Reviewed date:10/26/2024 02:03:18 PM Interpretation: Performing Lab: Notes/Report: [facility] , White Blood Count 10.2 4.0-11.0 [...] 10 3/uL Performing Lab: see note - [facility] PROF 14(COMP METB) Reviewed date:10/26/2024 02:03:18 PM Interpretation: Performing Lab: Notes/Report: [facility] , Sodium 134 136-145 mmol/L Potassium 4.1 [...] Globulin Ratio 0.6 Performing Lab: see note - [facility] US OB BPP w non-stress Reviewed date:11/03/2024 08:40:24 PM Interpretation: Performing Lab: Notes/Report: Source Facility: [place] [address] [place] [address] Ultrasound Report Signed Patient: ZULEIKA WADDELL MR#: [id number] : 1990 Acct:[id number] Age/Sex: 34 / F ADM Date: 11/03/24 Loc: US Attending Dr: Dave Ortiz D.O. Ordering Physician: Dave Ortiz D.O. Date of Service: 11/03/24 Procedure(s): US OB BPP w non-stress Accession Number(s): [id number] cc: Dave Ortiz D.O.; Gera Pulliam M.D. [address] [address] Patient Name: ZULEIKA WADDELL MRN: [id number] date: 1990 Sex: F Assigned Patient Location: US Current Patient Location: Accession/Order Number: [id number] Exam Date: 11/03/2024 15:29 Report Date: 11/03/2024 15:31 At the request of: DAVE ORTIZ DO Procedure: US OB BPP w non-stress Ultrasound obstetrical biophysical profile HISTORY: Bre[place] cisterna magna. In adequate breathing movement. Adequate gross body movement, tone and amniotic fluid volume. Total score 6 out of 8. Amniotic fluid index 11.1 cm within normal limits. heart rate 148 bpm. US/US OB BPP w non-stress IMPRESSION: Suboptimal biophysical profile. Score 6 out of 8. Impression dictated by: Aaron Boyce M.D. 11/03/2024 3:31 PM Dictation Location: [place] [address] Electronically authenticated by: [id number] Y Date: 11/03/2024 15:31 Dictated By: Aaron Boyce D.O. Signed By: 11/03/24 1533 DD/ 1531 TD/TT: Administrative Supervisor: [place] [address] Ultrasound Report Signed Patient: KJ WADDELL MR#: [id number] : 1990 Acct:[id number] Age/Sex: 34 / F ADM Date: 11/03/24 Loc: US Attending Dr: Dave Ortiz D.O. Ordering Physician: Dave Ortiz D.O. Date of Service: 11/03/24 Procedure(s): US OB BPP w non-stress Accession Number(s): [id number] cc: Dave Ortiz D.O. ; Gera Pulliam M.D. [address] [address] Patient Name: ZULEIKA WADDELL MRN: [id number] date: 1990 Sex: F Assigned Patient Loc ation: US Current Patient Location: Accession/Order Numb er: [id number] Exam Date: 11/03/2024 15:29 Report Date: 11/03/2024 15:31 At the request of: DAVE ORTIZ DO Procedure: US OB fet al BPP w non-stress Ultrasound obstetric al biophysical profile HISTORY: [place] ciste rna magna. In adequate br eathing [...] Boyce M.D. 11/03/2024 3:31 PM Dictation Location: [place] [address] Electronically authenticated by: [id number] Y Date: 11/03/2024 15:31 Dictated By: Basilio Boyce D.O. Signed By: 11/03/24 1533 DD/ 1531 TD/TT: Administrative Supervisor: OB dena Reviewed date:11/03/2024 08:40:24 PM Interpretation: Performing Lab: Notes/Report: Source Facility: [place] [address] Ultrasound Report Signed Patient: ZULEIKA WADDELL MR#: [id number] : 1990 Acct:[id number] Age/Sex: 34 / F ADM Date: 11/03/24 Loc: US Attending Dr: Dave Ortiz D.O. Ordering Physician: Dave Ortiz D.O. Date of Service: 11/03/24 Procedure(s): US OB growth Accession Number(s): [id number] cc: Dave Ortiz D.O.; Gera Pulliam M.D. [place] [address] Patient Name: ZULEIKA WADDELL MRN: [id number] date: 1990 Sex: F Assigned Patient Location: US Current Patient Location: Accession/Order Number: [id number] Exam Date: 11/03/2024 16:30 Report Date: 11/03/2024 [...] Boyce M.D. 11/03/2024 4:34 PM Dictation Location: [place] [address] Electronically authenticated by: [id number] Y Date: 11/03/2024 16:34 Dictated By: Aaron Boyce D.O. Signed By: 11/03/24 1636 DD/ 1634 TD/TT: Administrative Supervisor: [place] [address] Ultrasound Report Signed Patient: KJ WADDELL MR#: [id number] : 1990 Acct:[id number] Age/Sex: 34 / F ADM Date: 11/03/24 Loc: US Attending Dr: Dave Ortiz D.O. Ordering Physician: Dave Ortiz D.O. Date of Service: 11/03/24 Procedure(s): US OB growth Accession Number(s): [id number] cc: Dave Ortiz D.O. ; Gera Pulliam M.D. [address] [address] Patient Name: ZULEIKA WADDELL MRN: [id number] date: 1990 Sex: F Assigned Patient Loc ation: US Current Patient Location: Accession/Order Numb er: [id number] Exam Date: 11/03/2024 16:30 Report Date: 11/03/2024 [...] Boyce M.D. 11/03/2024 4:34 PM Dictation Location: [place] [facility] Electronically authenticated by: [id number] Y Date: 11/03/2024 16:34 Dictated By: Basilio Boyce D.O. Signed By: 11/03/24 1636 DD/ 163 TD/TT: Administrative Supervisor: US OB BPP w non-stress Reviewed date:11/07/2024 11:57:39 AM Interpretation: Performing Lab: Notes/Report: Source Facility: [place] [address] [place] [address] Ultrasound Report Signed Patient: ZULEIKA WADDELL MR#: [id number] : 1990 Acct:[id number] Age/Sex: 34 / F ADM Date: 11/06/24 Loc: FBCO Attending Dr: Dave Ortiz D.O. Ordering Physician: Dave Ortiz D.O. Date of Service: 11/06/24 Procedure(s): US OB BPP w non-stress Accession Number(s): [id number] cc: Dave Ortiz D.O.; Gera Pulliam M.D. [place] [id number] Patient Name: ZULEIKA WADDELL MRN: [id number] date: 1990 Sex: F Assigned Patient Location: [facility] Current Patient Location: Accession/Order Number: [id number] Exam Date: 11/06/2024 13:51 Report Date: 11/06/2024 [...] Giang M.D. 11/06/2024 2:00 PM Dictation Location: [place] [address] Electronically authenticated by: [id number] Y Date: 11/06/2024 14:00 Dictated By: Jimy Giang M.D. Signed By: 11/06/24 1403 DD/ 1400 TD/TT: Administrative Supervisor: [place] [address] Ultrasound Report Signed Patient: KJ WADDELL MR#: [id number] : 1990 Acct:[id number] Age/Sex: 34 / F ADM Date: 11/06/24 Loc: FBCO Attending Dr: Dave Ortiz D.O. Ordering Physician: Dave Ortiz D.O. Date of Service: 11/06/24 Procedure(s): US OB BPP w non-stress Accession Number(s): [id number] cc: Dave Ortiz D.O. ; Gera Pulliam M.D. [place] [address] Patient Name: ZULEIKA WADDELL MRN: [id number] date: 1990 Sex: F Assigned Patient Loc ation: FBCO Current Patient Location: Accession/Order Numb er: [id number] Exam Date: 11/06/2024 13:51 Report Date: 11/06/2024 14:00 At the request of: DAVE ORTIZ DO Procedure: US OB fet al BPP w non-stress US OB BPP w non-stress 11/06/2024 11:40 AM SIGNS AND SYMPTOMS: 02/24/2023 Failed BPP PROTOCOL: Grayscale and color Doppler sonographic images of the gravid uterus COMPARISON: 11/03/2024 FINDINGS: Estimated gestationa l age: 32 weeks and 3 days heart rate: 131 bpm. Amniotic fluid index : 12.1 cm. Biophysical profile: movements: 2/2 tone: 2/2 breathing move ments: 2/2. Amniotic fluid volume: 2/2 U S/US OB BPP w non-stress IMPRESSION: Biophysical profile score: 8/8 Estimated gestationa l age: 32 weeks and 3 days heart rate: 131 bpm. Amniotic fluid index : 12.1 cm. Impression dictated by: Jimy Giang M.D. 11/06/2024 2:00 PM Dictation Location: [place] [address] Electronically authenticated by: [id number] Y Date: 11/06/2024 14:00 Dictated By: Jimy Giang M.D. Signed By: 11/06/24 1403 DD/ 1400 TD/TT: Administrative Supervisor: US OB BPP w non-stress Reviewed date:11/10/2024 04:02:27 PM Interpretation: Performing Lab: Notes/Report: Source Facility: [facility] [place] [address] [place] [address] Ultrasound Report Signed Patient: ZULEIKA WADDELL MR#: [id number] : 1990 Acct:[id number] Age/Sex: 34 / F ADM Date: 11/10/24 Loc: US Attending Dr: Dave Ortiz D.O. Ordering Physician: Dave Ortiz D.O. Date of Service: 11/10/24 Procedure(s): US OB BPP w non-stress Accession Number(s): [id number] cc: Dave Ortiz D.O.; Gera Pulliam M.D. [place] [address] Patient Name: ZULEIKA WADDELL MRN: [id number] date: 1990 Sex: F Assigned Patient Location: [facility] Current Patient Location: Accession/Order Number: [id number] Exam Date: 11/10/2024 10:07 Report Date: 11/10/2024 10:08 At the request of: DAVE ORTIZ DO Procedure: US OB BPP w non-stress BIOPHYSICAL PROFILE: CLINICAL INFORMATION: Christiano cisterna magna Q04.9 Comparison: 11/06/2024 There is a single live intrauterine gestation in cephalic presentation. The reported gestational age is 33 weeks 0 days. The heart rate katabgtp642 beats per minute. FINDINGS: TONE: 1 or [...] greater than 2 cm [Y] 2/2 ANURAG: 15.2 cm . This is in normal range. Total score: 8/8 US/US OB BPP w non-stress IMPRESSION: NORMAL BIOPHYSICAL PROFILE Impression dictated by: Adela Mahan M.D. 11/10/2024 10:08 AM Dictation Location: [place] [address] Electronically authenticated by: [id number] Y Date: 11/10/2024 10:08 Dictated By: Adela Mahan M.D. Signed By: 11/10/24 1011 DD/ 1008 TD/TT: Administrative Supervisor: [place] [address] Ultrasound Report Signed Patient: KJ WADDELL MR#: [id number] : 1990 Acct:[id number] Age/Sex: 34 / F ADM Date: 11/10/24 Loc: US Attending Dr: Dave Ortiz D.O. Ordering Physician: Dave Ortiz D.O. Date of Service: 11/10/24 Procedure(s): US OB BPP w non-stress Accession Number(s): [id number] cc: Dave Ortiz D.O. ; Gera Pulliam M.D. [place] [address] Patient Name: ZULEIKA WADDELL MRN: [id number] date: 1990 Sex: F Assigned Patient Loc ation: [facility] Current Patient Location: Accession/Order Numb er: [id number] Exam Date: 11/10/2024 10:07 Report Date: 11/10/2024 10:08 At the request of: DAVE ORTIZ DO Procedure: US OB fet al BPP w non-stress BIOPHYSICAL PROFILE: CLINICAL INFORMATION : Christiano cisterna magna Q04.9 Comparison: 11/06/2024 There is a single li ve intrauterine gestation in cephalic presentation. The reported gestational age is 33 weeks 0 days. The heart rate beats per minute. FINDINGS: TONE: 1 or mor e episodes of activity extension and flexion of extremity or opening and closing of the hand [Y] 2/2 GROSS BODY MOVEMENTS : 3 or more discrete body or limb movements [Y] 2/2 BREATHING MOVE MENTS: 1 or more episodes of breathing lasting at least 30 seconds [Y] 2/2 ANURAG: A single deepes t vertical pocket of amniotic fluid greater than 2 cm [Y] 2/2 ANURAG: 15.2 cm . This is in normal range. Total score: 8/8 U S/US OB BPP w non-stress IMPRESSION: NORMAL BIOPHYSICAL PROFILE Impression dictated by: Adela Mahan M.D. 11/10/2024 10:08 AM Dictation Location: [place] [address] Electronically authenticated by: [id number] Y Date: 11/10/2024 10:08 Dictated By: Adela Mahan M.D. Signed By: 11/10/24 1011 DD/ 1008 TD/TT: Administrative Supervisor: US OB BPP w non-stress Reviewed date:11/17/2024 04:34:46 PM Interpretation: Performing Lab: Notes/Report: Source Facility: [place] [address] [place] [address] Ultrasound Report Signed Patient: ZULEIKA WADDELL MR#: [id number] : 1990 Acct:[id number] Age/Sex: 34 / F ADM Date: 11/17/24 Loc: US Attending Dr: Dave Ortiz D.O. Ordering Physician: Dave Ortiz D.O. Date of Service: 11/17/24 Procedure(s): US OB BPP w non-stress Accession Number(s): [id number] cc: Dave Ortiz D.O.; Gera Pulliam M.D. [place] [address] Patient Name: ZULEIKA WADDELL MRN: [id number] date: 1990 Sex: F Assigned Patient Location: [facility] Current Patient Location: Accession/Order Number: [id number] Exam Date: 11/17/2024 10:16 Report Date: 11/17/2024 [...] Mahan M.D. 11/17/2024 10:17 AM Dictation Location: [place] [address] Electronically authenticated by: [id number] Y Date: 11/17/2024 10:17 Dictated By: Adela Mahan M.D. Signed By: 11/17/24 1019 DD/ 1017 TD/TT: Administrative Supervisor: [place] [address] Ultrasound Report Signed Patient: KJ WADDELL MR#: [id number] : 1990 Acct:[id number] Age/Sex: 34 / F ADM Date: 11/17/24 Loc: US Attending Dr: Dave Ortiz D.O. Ordering Physician: Dave Ortiz D.O. Date of Service: 11/17/24 Procedure(s): US OB BPP w non-stress Accession Number(s): [id number] cc: Dave Ortiz D.O. ; Gera Pulliam M.D. [place] [id number] Patient Name: ZULEIKA WADDELL MRN: [id number] date: 1990 Sex: F Assigned Patient Loc ation: [facility] Current Patient Location: Accession/Order Numb er: [id number] Exam Date: 11/17/2024 10:16 Report Date: 11/17/2024 10:17 At the request of: DAVE ORITZ DO Procedure: US OB fet al BPP w non-stress BIOPHYSICAL PROFILE: CLINICAL INFORMATION : Christiano cisterna magna COMPARISON: 11/10/2024 There is a single li ve intrauterine gestation in vertex presentation. The reported gestational age is 34 weeks 0 days. The heart rate measures 130 beats per minute. FINDINGS: TONE: 1 or mor e episodes of activity extension and flexion of extremity or opening and closing of the hand [Y] 2/2 GROSS BODY MOVEMENTS : 3 or more discrete body or limb movements [Y] 2/2 BREATHING MOVE MENTS: 1 or more episodes of breathing lasting at least 30 seconds [Y] 2/2 ANURAG: A single deepes t vertical pocket of amniotic fluid greater than 2 cm [Y] 2/2 ANURAG: 13.7 cm. This i s in normal range. Total score: 8/8 U S/US OB BPP w non-stress IMPRESSION: NORMAL BIOPHYSICAL PROFILE Impression dictated by: Adela Mahan M.D. 11/17/2024 10:17 AM Dictation Location: [place] [address] Electronically authenticated by: [id number] Y Date: 11/17/2024 10:17 Dictated By: Adela Mahan M.D. Signed By: 11/17/24 1019 DD/ 1017 TD/TT: Administrative Supervisor: Reason For Referral No Information Medications Medication [...] Status W/U Status Risk Notes Problem Diarrhea (25314521) Diarrhea (R19.7) Active confirmed Vital Signs Blood pressure diastolic 80 mm Hg 08/27/2024 Height 64 in 08/27/2024 Blood pressure systolic 124 mm Hg 08/27/2024 Weight 164.0 lbs 08/27/2024 BMI 28.15 kg/m2 08/27/2024 Encounters Encounter Location Date Provider Diagnosis [facility] [address] [place] [address] 08/27/2024 [facility] [address] [place] [address] 08/28/2024 [facility] [address] [facility] [place] [address] 09/23/2024 [facility] [address] [place] [address] 08/27/2024 Laron Pulliam Diarrhea R19.7 Assessments Encounter Date Diagnosis (ICD Code) Assessment [...] End Date [employer] [place] [employer] [address] [address] [place] [address] [id number] [facility] [address] [place], [place] Self - patient is the insured Medical (General) History Medical History History ICD Code Asthma Depression Hypertension Surgical History Surgery Date(Month/Year) Club Foot- Left Open heart surgery Breast reduction 2015
--- OUTSIDE RECORDS SUMMARY | 2024-11-20 10:06 | XMS_ITS | Encounter Summary ---
Author Organization [facility] Address [address] [facility] [place] [address] Care Team Providers Care Varnish Mixer Name Role Phone YoselinJaime FERMIN Unavailable Unallocated, Noms Provider Primary Care Provi kwabena Encounter Details Date Type Department Care Team (Late st Contact Info) Description 11/10/2024 Clinisync Result Encounter [facility] Unsolicited Dave Ortiz, DO [address] [place] [address] Social History Tobacco Use Types Packs/Day Years [...] Description 11/23/2024 2:20 PM EDT Routine [facility] [address] [place] [address] Dave Ortiz, DO [address] [place] [address] (work) documented as of this encounter Goals Goal Patient Goal Type Associated Problems Recent Progress Patient-Stated? Author Reminders Care Plan OB Reminders No Open Scheduling, Background documented as of this encounter Procedures Procedure Name Priority Date/Time Associated Diagnosis Comments US OB BPP W NON-STRESS 11/10/2024 10:08 AM EDT documented in this encounter Results * US OB BPP W NON-STRESS (11/10/2024 10:08 AM EDT) Anatomical Region Laterality Modality Other 11/10/2024 10:0 8 AM EDT Narrative 11/10/2024 10:11 [place] [address] Ultrasound Report Signed Patient: ZULEIKA WADDELL MR#: [id number] : 1990 Acct:[id number] Age/Sex: 34 / F ADM Date: 11/10/24 Loc: US Attending Dr: Dave Ortiz D.O. Ordering Physician: Dave Ortiz D.O. Date of Service: 11/10/24 Procedure(s): US OB BPP w non-stress Accession Number(s): [id number] cc: Dave Ortiz D.O.; Ramon Avila M.D. [address] [address] Patient Name: ZULEIKA WADDELL MRN: [id number] date: 1990 Sex: F [facility] Current Patient Location: Accession/Order Number: [id number] Exam Date: 11/10/2024 10:07 Report Date: 11/10/2024 10:08 At the request of: DAVE ORTIZ DO Procedure: US OB BPP w non-stress BIOPHYSICAL PROFILE: CLINICAL INFORMATION: Christiano cisterna magna Q04.9 Comparison: 11/06/2024 There is a single live intrauterine gestation in cephalic presentation. The reported gestational age is 33 weeks 0 days. The heart rate tifkqybq864 beats per minute. FINDINGS: TONE: 1 or [...] Mahan M.D. 11/10/2024 10:08 AM Dictation Location: [place] [address] Electronically authenticated by: [id number] Y Date: 11/10/2024 10:08 Dictated By: Adela Mahan M.D. Signed By: 11/10/24 1011 DD/ 1008 TD/TT: Logistics Support: Procedure Note Radiology, Radiologist, MD - 11/10/2024 [place] [address] Ultrasound Report Signed Patient: ZULEIKA WADDELL LMR#: [id number] : 1990Acct:[id number] Age/Sex: 34 / FADM Date: 11/10/24 Loc: US Attending Dr: Dave Ortiz D.O. Ordering Physician: Dave Ortiz D.O. Date of Service: 11/10/24 Procedure(s): US OB BPP w non-stress Accession Number(s): [id number] cc: Dave Ortiz D.O.; Ramon Avila M.D. The [address] [address] Patient Name: ZULEIKA WADDELL MRN: [id number] date: 1990 Sex: F [facility]igned [facility] Current Patient Location: Accession/Order Number: [id number] Exam Date: 11/10/2024 10:07 Report Date: 11/10/2024 10:08 At the request of: DAVE POLO DO Procedure: US OB BPP w non-stress BIOPHYSICAL PROFILE: CLINICAL INFORMATION: Christiano cisterna magna Q04.9 Comparison: 11/06/2024 There is a single live intrauterine gestation in cephalic presentation.The reported gestational age is 33 weeks 0 days. The heart srzgumdjyhjk858 beats per minute. FINDINGS: TONE: 1 or [...] Mahan M.D. 11/10/2024 10:08 AM Dictation Location: [place] [address] Electronically authenticated by: [id number] Y Date: 0:08 Dictated By: Adela Mahan M.D. Signed By:11/10/24 1011 DD/ 1008 TD/TT: Logistics Support: Dave Ortiz DO [facility] Final Result documented in this encounter Visit Diagnoses Not on filedocumented in this encounter Additional Health Concerns Active Problems Noted Date Diagnosed Date OB Reminders 06/23/2024 documented as of this encounter Care Teams Varnish Mixer Relationship Specialty Start Date End Date Unallocated, Noms Provider, [address] [place] [address] PCP - General 03/04/23 Jaime Waddell PA [address] [place], [place] [id number] Referring Physician Physical Medicine and Rehabilitation 03/04/23 documented as of this encounter
--- OUTSIDE RECORDS SUMMARY | 2024-11-20 10:06 | XMS_ITS | Encounter Summary ---
Author Organization [facility] tem Address [id number] [address] 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
--- OUTSIDE RECORDS SUMMARY | 2024-11-20 10:06 | XMS_ITS | Encounter Summary ---
Author Organization [facility] Address [address] [facility] [place] [address] Care Team Providers Care Ground Mixer Name Role Phone YoselinJaime FERMIN Unavailable Unallocated, Noms Provider Primary Care Provi kwabena Encounter Details Date Type Department Care Team (Late Contact Info) Description 11/10/2024 Bamboo flowsheet [facility] OB [address] [place] [address] Cuong Ortiz DO [facility] [place] [address] Social History Tobacco Use Types Packs/Day Years [...] Department Care Team (Late Contact Info) Description 11/23/2024 2:20 PM EDT Routine [facility] OB [address] [place] [address] Cuong Ortiz DO [address] [place] [address] documented as of this encounter Goals Goal Patient Goal Type Associated Problems Recent Progress Patient-Stated? Author Reminders Care Plan OB Reminders No Open Scheduling, Background documented as of this encounter Visit Diagnoses Not on filedocumented in this encounter Additional Health Concerns Active Problems Noted Date Diagnosed Date OB Reminders 06/23/2024 documented as of this encounter Care Teams Ground Mixer Relationship Specialty Start Date End Date Unallocated, Noms Provider, [address] [place] [address] PCP - General 03/04/23 Jaime Wyatt PA [address] [place] [address] Referring Physician Physical Medicine and Rehabilitation 03/04/23 documented as of this encounter
--- OUTSIDE RECORDS SUMMARY | 2024-11-20 10:06 | XMS_ITS | Encounter Summary ---
Author Organization [facility] Address [address] [facility] [place] [address] Care Team Providers Care Professor Of Rhetoric Name Role Phone Jaime Wyatt FERMIN Unavailable Unallocated, Noms Provider Primary Care Provi kwabena Encounter Details Date Type Department Care Team (Late st Contact Info) Description 09/29/2024 Orders Only [facility] OB [address] [place] [address] Destinee Vazquez LPN [address] [facility] [address] [place] [address] Social History Tobacco Use Types Packs/Day Years [...] PM EDT Routine [facility] [address] [place] [address] Cuong Ortiz, DO [address] [place] [address] documented as of this encounter Goals Goal [...] documented as of this encounter Care Teams Professor Of Rhetoric Relationship Specialty Start Date End Date Unallocated, Noms Provider, [address] [place] [address] PCP - General 03/04/23 Jaime Wyatt PA [address] [place], [place] [phone] Referring Physician Physical Medicine and Rehabilitation 03/04/23 documented as of this encounter
--- OUTSIDE RECORDS SUMMARY | 2024-11-20 10:06 | XMS_ITS | Encounter Summary ---
Author Organization [facility] Address [address] [facility] [place] [address] Care Team Providers Care Library Supervisor Name Role Phone Yoselin Jaime FERMIN Unavailable Unallocated, Noms Provider Primary Care Provi kwabena Encounter Details Date Type Department Care Team (Late st Contact Info) Description 11/17/2024 Abstract [facility] OB [address] [place] [address] Cuong Ortiz DO [facility] [address] [place], [place] [address] Social History Tobacco Use Types Packs/Day Years [...] Routine [facility] OB [address] [place] [address] Cuong Ortiz DO [address] [place] [address] [place] [address] documented as of this encounter Goals Goal Patient Goal Type Associated Problems Recent Progress Patient-Stated? Author Reminders Care Plan OB Reminders No Open Scheduling, Background documented as of this encounter Visit Diagnoses Not on filedocumented in this encounter Additional Health Concerns Active Problems Noted Date Diagnosed Date OB Reminders 06/23/2024 documented as of this encounter Care Teams Library Supervisor Relationship Specialty Start Date End Date Unallocated, Noms Provider, [address] [place] [address] PCP - General 03/04/23 Jaime Wyatt PA [address] [place] [address] Referring Physician Physical Medicine and Rehabilitation 03/04/23 documented as of this encounter
--- OUTSIDE RECORDS SUMMARY | 2024-11-20 10:06 | XMS_ITS | Encounter Summary ---
Author Organization [facility] Address [address] [facility] [place] [address] Care Team Providers Care Load Dispatcher Local Name Role Phone Jaime Wyatt PA Unavailable Unallocated, Noms Provider Primary Care Provi kwabena Encounter Details Date Type Department Care Team (Late st Contact Info) Description 11/12/2024 Patient Outreach [facility] [address] [place] [address] Elena Felix LPN Social History Tobacco Use Types Packs/Day [...] on file documented as of this encounter Progress Notes * Elena Felix LPN - 11/12/2024 9:18 AM EDT Monthly Outreach. Call to pt X2, LVM for return call. documented in this encounter Plan of Treatment Upcoming Encounters Date Type Department Care Team (Late st Contact Info) Description 11/23/2024 2:20 PM EDT Routine [facility] [address] [facility] [place] [address] Cuong Ortiz, [address] [place] [address] documented as of this encounter Goals Goal Patient Goal Type Associated Problems Recent Progress Patient-Stated? Author Reminders Care Plan OB Reminders No Open Scheduling, Background documented as of this encounter Visit Diagnoses Not on filedocumented in this encounter Additional Health Concerns Active Problems Noted Date Diagnosed Date OB Reminders 06/23/2024 documented as of this encounter Care Teams Load Dispatcher Local Relationship Specialty Start Date End Date Unallocated, Noms Provider, [address] [place], [place] [phone] PCP - General 03/04/23 Jaime Wyatt PA [address] [place] [address] Referring Physician Physical Medicine and Rehabilitation 03/04/23 documented as of this encounter
--- OUTSIDE RECORDS SUMMARY | 2024-11-20 10:06 | XMS_ITS | Encounter Summary ---
Author Organization [employer] Address [id number] [address] [place] [address] Care Team Providers Care Half Backer Name Role Phone Jaime Wyatt PA-C Primary Care Provider Encounter Details Date Type Department Care Team (Latest Contact Info) Description 11/16/2024 Travel Social History Tobacco Use Types Packs/Day Years [...] filedocumented in this encounter Additional Health Concerns Assessment Noted Time PHQ-9 Depression Total Score: 0 05/02/20 22 1:41 PM EST documented as of this encounter Care Teams Half Backer Relationship Specialty Start Date End Date Jaime Wyatt PA-C [address] [place] [address] PCP - General Physician Dock Worker 03/18/18 documented as of this encounter
[2024-11-20 10:09] VITALS: BP 113/68; PULSE 75
== END 2024-11-20 10:57 | disposition home or self-care (01) ==
LOC: FBCO 10:02 → FBC 10:04
PROVIDERS: PCP Family Medicine; Visit Provider Obstetrics & Gynecology
DX: O26.893 Other specified pregnancy related conditions, third trimester (principal)
CPT/HCPCS: 59025

== ENCOUNTER 2024-11-24 08:56 | Outpatient (OUT) | payer MEDICAID, SELFPAY ==
--- OUTSIDE RECORDS SUMMARY | 2024-11-10 11:00 | XMS_ITS | Encounter Summary ---
Author Organization [facility] Address [address] [facility] [address] Care Team Providers Care Mfg Assoc Name Role Phone Yoselin Jaime FERMIN Unavailable Unallocated, Noms Provider Primary Care Provi kwabena Reason for Visit * Reason Comments Routine Visit Encounter Details Date Type Department Care Team (Late st Contact Info) Description 11/10/2024 11:00 AM EDT Routine [facility] [address] [facility] [place] [phone] Cuong Ortiz, DO [address] [facility] [address] [place], [facility]11 33 weeks gestation of ; Third trimester Social History Tobacco Use Types Packs/Day Years [...] Sign Reading Time Taken Comments Blood Pressure 110/60 11/10/2024 10:27 AM EDT Pulse - - Temperature - - Respiratory Rate - - Oxygen Saturation - - Inhaled Oxygen Concentration - - Weight 78.5 kg (173 lb) 11/10/2024 10:27 AM EDT Height - - Body Mass Index 27.92 10/24/2022 12:00 PM EDT documented in this encounter Progress Notes * Adelarima De Souza LPN - 11/10/2024 11:00 AM EDT Reason for Appointment: Patient ID: [...] deficit disorder) ADHD (attention deficit hyperactivity disorder) ([facility]) Anxiety Bacterial vaginosis Bipolar disorder Club foot Depression ([facility]/HCC) Female infertility Heart problem Hormone imbalance HISTORY PAST MEDICAL HISTORY SOCIAL HISTORY Past Medical History: Diagnosis Date Abscess ADD (attention deficit disorder) ADHD (attention deficit hyperactivity disorder) ([facility]) Anxiety Bacterial vaginosis Bipolar disorder Club foot Depression ([facility]) Female infertility Heart problem Heart Issue [...] nursing note reviewed. Exam conducted with a development specialist present. Vitals: Estimated body mass index is 27.92 kg/m?? as calculated from the following: Height as of 10/24/22: 5' 6 . Weight as of this encounter: 173 lb. BP: 110/60 Patient's last menstrual period was 03/24/2024. ASSESSMENT & PLAN ICD-10-CM 1. 33 weeks gestation of Z3A.33 POCT urinalysis dipstick manually resulted 2. Third trimester Z34.93 POCT urinalysis dipstick manually resulted Return OB: Patient presents today for a routine obstetrics appointment. Patient is currently 33w0d . Patient states she is doing well but has complaints of being tired due to current . Patient has verbalizes frequent movement. labor precautions was discussed/given and patient was instructed to perform kick counts three times a day. Pt has ultrasound in [place] on Saturday. Orders Placed This Encounter Procedures POCT urinalysis dipstick manually resulted Follow Up: Patient is to return to office in 2 week for routine OB appointment. Documented by Adela De Souza LPN on behalf of: Cuong Ortiz DO documented in this encounter Plan of Treatment Upcoming Encounters Date Type Department Care Team (Late st Contact Info) Description 11/30/2024 1:00 PM EDT Routine [facility] [address] [facility] [place] [phone] Cuong Ortiz DO [address] [facility] [place] [address] documented as of this encounter Goals Goal Patient Goal Type Associated Problems Recent Progress Patient-Stated? Author Reminders Care Plan OB Reminders No Open Scheduling, Background documented as of this encounter Procedures Procedure Name Priority Date/Time Associated Diagnosis Comments POCT URINALYSIS DIPSTICK Routine 11/10/2024 10:32 AM EDT 33 weeks gestation of Third trimester documented in this encounter Results * (ABNORMAL) POCT urinalysis dipstick manually resulted (11/10/2024 10:32 AM EDT) Color, UA Anna Clarity, UA Clear Glucose, UA Negative Negative - 2000(110) ++++ mg/dL Bilirubin, UA Negative Negative - 4(70) +++ mg/dL Ketones, UA Negative Negative - 160(16) ++++ mg/dL Spec Grav, UA 1.025 1 - 1.03 Blood, UA Negative Negative - 50 Rakesh/mcL pH, UA 6.0 5 - 9 Protein, UA Negative Negative - 2000(20) ++++ mg/dL Urobilinogen, UA 0.2 0.2 - 12 mg/dL Leukocytes, UA Trace Negative - 500+++ Matti/mcL Nitrite, UA Negative Negative - Positive Urine 11/10/2024 10:3 2 AM EDT Cuong Ortiz DO POINT OF CARE TEST ENTER/EDIT OR DERABLES Final Result documented in this encounter Visit Diagnoses Diagnosis 33 weeks gestation of Third trimester state, incidental documented in this encounter Additional Health Concerns Active Problems Noted Date Diagnosed Date OB Reminders 06/23/2024 documented as of this encounter Care Teams Mfg Assoc Relationship Specialty Start Date End Date Unallocated, Noms Provider, [address] [place], [place] [phone] PCP - General 03/04/23 Jaime Wyatt PA [address] [place], [place] [phone] Referring Physician Physical Medicine and Rehabilitation 03/04/23 documented as of this encounter
--- OUTSIDE RECORDS SUMMARY | 2024-11-16 12:43 | XMS_ITS | Encounter Summary ---
Author Organization [facility] Address [id number] [address] [place] [address] Care Team Providers Care Zipper Machine Operator Name Role Phone Jaime Wyatt PA-C Primary Care Provider + [phone] Reason for Visit * Diagnostic Imaging (Routine) - Pending Review Specialty Diagnoses / Procedures Referred By Sole t Referred To Contact Maternal and Medicine Diagnoses Supervision of high risk , antepartum Procedures US MFM with or without consult US MFM with or without consult Trav Macdonald MD [address], [address] [place] [address] Phone: tel: fax: Maternal- Medicine at [facility] [address] [place] [address] Phone: tel: fax: Referral ID Status Reason Start Date Expiration Date V isits Requested Visits Authorized [id number] Pending Review 11/16/2024 11/16/2025 1 1 Encounter Details Date Type Department Care Team (Latest Contact Info) Description 11/16/2024 12:43 PM EDT - 11/16/2024 11:59 PM EDT Hospital Encounter [facility] - MFM US Imaging [address] [place] [phone] Supervision of high risk , antepartum Discharge [...] Procedure Name Priority Date/Time Associated Diagnosis Comments [facility] OB FOLLOW-UP, 1 FETUS Routine 11/16/2024 3:01 PM EDT Supervision of high risk , antepartum documented in this encounter Results * [facility] OB FOLLOW-UP, 1 FETUS (11/16/2024 3:01 PM EDT) Anatomical Region Laterality Modality OB-PROTECTIVE SERVICES CASE WORKER Ultrasound 11/16/2024 1:48 PM EDT Narrative 11/16/2024 3:25 PM EDT NAME: BAIRON TO : 1990 SEX: F Accession Number: [id number] ORDERING PHYSICIAN: TRAV MACDONALD REFERRING PHYSICIAN: DAVE CUELLAR Coding ----- --------- Procedures 11701: Follow-up Ultrasound, per fetus 92556: Echocardiography, , cardiovascular system, real time with [...] ----- --------- OB History 7. Para 4 [id number] Current ----- --------- Cell free DNA Low [...] EFW (oz) 14 oz EFW by: Hadlock ([id number]-FL) Extended Tibia 58.9 mm 34w 3d 81% Gurdeep Medical Office Technician 6.0 mm CM 14.6 mm Head / [...] Cerebellum. Face: Lips. Nose. Heart/Thorax: 4-chamber view. 6-pwejxv-nzrinvt view. Great vessels. Diaphragm. Abdomen: Stomach. Kidneys. [...] view documented previously 3-vessel view documented previously 9-ioacbu-gusbaih view normal Aortic arch view documented previously [...] TO : 1990 SEX: F Accession Number: [id number] ORDERING PHYSICIAN: TRAV MACDONALD REFERRING PHYSICIAN: DAVE CUELLAR Coding ----- --------- Procedures 27602: Follow-up Ultrasound, per fetus 03280: Echocardiography, , cardiovascular system, real timewith image documentation (2D), with or without M-mode recording; follow-up or repeat study Indication ----- --------- Screening for follow-up survey, Chronic hypertension affecting ,History of prior with delivery, Supervision of high risk - MOB alcohol syndrome, T13 inprev , MOB club foot, allan cisterna magna, 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 Para 4 [id number] Current ----- --------- Cell free DNA Low [...] EFW (oz) 14 oz EFW by: Hadlock ([id number]-FL) Extended Tibia 58.9 mm 34w 3d 81% Gurdeep Medical Office Technician 6.0 mm CM 14.6 mm Head / [...] Cerebellum. Face: Lips. Nose. Heart/Thorax: 4-chamber view. 4-evcjlz-skwwvgu view. Great vessels. Diaphragm. Abdomen: Stomach. Kidneys. [...] view documented previously 3-vessel view documented previously 6-jcokot-iufapvq view normal Aortic arch view documented previously [...] specified by MFM. us Trav Macdonald MD [facility] [place] ORDERABLES Final Resul t documented in this encounter Visit Diagnoses Diagnosis Supervision of high risk , antepartum documented in this encounter Additional Health Concerns Assessment Noted Time PHQ-9 Depression Total Score: 0 05/02/20 22 1:41 PM EST documented as of this encounter Care Teams Zipper Machine Operator Relationship Specialty Start Date End Date Jiame Wyatt PA-C [address] [place], [place] [id number] PCP - General Physician Senior Pharmacy Technician 03/18/18 documented as of this encounter
--- OUTSIDE RECORDS SUMMARY | 2024-11-16 14:30 | XMS_ITS | Encounter Summary ---
Author Organization [facility] [employer] [facility] tem Address [id number] [address] 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
--- OUTSIDE RECORDS SUMMARY | 2024-11-23 14:20 | XMS_ITS | Encounter Summary ---
Author Organization [facility] Address [address] [facility] [place] [address] Care Team Providers Care Tandem Operator Name Role Phone Yoselin Jaime FERMIN Unavailable Unallocated, Noms Provider Primary Care Provi kwabena Reason for Visit * Reason Comments Routine Visit Encounter Details Date Type Department Care Team (Late st Contact Info) Description 11/23/2024 2:20 PM EDT Routine [facility] OB [address] [facility] [place] [phone] Cuong Ortiz, DO [address] [facility] [address] [place], [facility]11 Third trimester ; 34 weeks gestation of Social History Tobacco Use Types Packs/Day Years [...] 12:00 PM EDT documented in this encounter Plan of Treatment Upcoming Encounters Date Type Department Care Team (Late st Contact Info) Description 11/30/2024 1:00 PM EDT Routine [facility] OB [address] [facility] [place] [phone] Cuong Ortiz, DO [address] [place] [address] [place] [address] documented as of this encounter Goals Goal Patient Goal Type Associated Problems Recent Progress Patient-Stated? Author Reminders Care Plan OB Reminders No Open Scheduling, Background documented as of this encounter Procedures Procedure Name Priority Date/Time Associated Diagnosis Comments POCT URINALYSIS DIPSTICK Routine 11/23/2024 2:58 PM EDT Third trimester documented in this encounter Results [...] this encounter Visit Diagnoses Diagnosis Third trimester state, incidental 34 weeks gestation of documented in this encounter Additional Health Concerns Active Problems Noted Date Diagnosed Date OB Reminders 06/23/2024 documented as of this encounter Care Teams Tandem Operator Relationship Specialty Start Date End Date Unallocated, Noms Provider, [address] [place] [address] PCP - General 03/04/23 Jaime Wyatt PA [address] [place], [place] [phone] Referring Physician Physical Medicine and Rehabilitation 03/04/23 documented as of this encounter
--- NOTE | 2024-11-24 | US_ITS ---
The [address] [address] Patient Name: ZULEIKA WADDELL MRN: [id number] date: 1990 Sex: F Assigned Patient Location: [facility] Current Patient Location: [facility] Accession/Order Number: [id number] Exam Date: 11/24/2024 09:41 Report Date: 11/24/2024 09:42 At the request of: DAVE CUELLAR DO Procedure: US OB BPP w non-stress BIOPHYSICAL PROFILE: CLINICAL INFORMATION: Christiano cisterna magna Q04.9 COMPARISON: 11/17/2024 There is a single live intrauterine gestation in cephalic presentation. The reported gestational age is 35 weeks 0 days. The heart rate measures 134 beats per minute. FINDINGS: TONE: 1 or more episodes of activity extension and flexion of extremity or opening and closing of the hand [Y] 2/2 GROSS BODY MOVEMENTS: 3 or more discrete body or limb movements [Y] 2/2 BREATHING MOVEMENTS: 1 or more episodes of breathing lasting at least 30 seconds [Y] 2/2 ANURAG: A single deepest vertical pocket of amniotic fluid greater than 2 cm [Y] 2/2 ANURAG: 14.6 cm. This is normal. Total score: 8/8 US/US OB BPP w non-stress IMPRESSION: NORMAL BIOPHYSICAL PROFILE. Impression dictated by: Adela Mahan M.D. 11/24/2024 9:42 AM Dictation Location: [place] [address] Electronically authenticated by: [id number] Y Date: 11/24/2024 09:42
--- OUTSIDE RECORDS SUMMARY | 2024-11-24 08:58 | XMS_ITS | Encounter Summary ---
Author Organization [facility] Address [address] [facility] [place] [address] Care Team Providers Care Shingle Grader Name Role Phone Yoselin Jaime FERMIN Unavailable Unallocated, Noms Provider Primary Care Provi kwabena Encounter Details Date Type Department Care Team (Late st Contact Info) Description 06/26/2024 Abstract [facility] BCP OB [address] [place] [address] Cuong Ortiz, DO [address], [place] [address] Social History Tobacco Use Types Packs/Day Years [...] Routine [facility] BCP OB [address] [place] [address] Cuong Ortiz, DO [address], [facility]11 documented as of this encounter Goals Goal Patient Goal Type Associated Problems Recent Progress Patient-Stated? Author Reminders Care Plan OB Reminders No Open Scheduling, Background documented as of this encounter Visit Diagnoses Not on filedocumented in this encounter Additional Health Concerns Active Problems Noted Date Diagnosed Date OB Reminders 06/23/2024 documented as of this encounter Care Teams Shingle Grader Relationship Specialty Start Date End Date Unallocated, Noms Provider, [address] [place], [place] [phone] PCP - General 03/04/23 Jaime Wyatt PA [address] [place] [address] Referring Physician Physical Medicine and Rehabilitation 03/04/23 documented as of this encounter
--- OUTSIDE RECORDS SUMMARY | 2024-11-24 08:58 | XMS_ITS | Encounter Summary ---
Author Organization [facility] Address [address] [facility] [place] [address] Care Team Providers Care Geochemical Laboratory Technician Name Role Phone Yoselin Jaime FERMIN Unavailable Unallocated, Noms Provider Primary Care Provi kwabena Encounter Details Date Type Department Care Team (Late st Contact Info) Description 08/28/2024 Abstract [facility] OB [address] [place] [address] Cuong Ortiz DO [facility] [address], [place] [address] Social History Tobacco Use Types Packs/Day Years [...] Routine [facility] BCP OB [address] [place] [address] Cuong Ortiz DO [address] [place] [address] documented as of this encounter Goals Goal Patient Goal Type Associated Problems Recent Progress Patient-Stated? Author Reminders Care Plan OB Reminders No Open Scheduling, Background documented as of this encounter Visit Diagnoses Not on filedocumented in this encounter Additional Health Concerns Active Problems Noted Date Diagnosed Date OB Reminders 06/23/2024 documented as of this encounter Care Teams Geochemical Laboratory Technician Relationship Specialty Start Date End Date Unallocated, Noms Provider, [address] [place] [address] PCP - General 03/04/23 Jaime Wyatt PA [address] [place] [address] Referring Physician Physical Medicine and Rehabilitation 03/04/23 documented as of this encounter
--- OUTSIDE RECORDS SUMMARY | 2024-11-24 08:58 | XMS_ITS | Clinical Summary ---
Author Organization [facility] Address [address] [place] [facility] [place] [address] Care Team Providers Care Software Clerk Name Role Phone Jaime Wyatt FERMIN Unavailable [...] Reaction(s): Anaphylaxis Other Reaction(s): Unknown Sulfa Antibiotics 08/23/2018 Other Reaction(s): Unknown Other Reaction(s): Rash Other Reaction(s): Unknown Other Reaction(s): Rash Other Reaction(s): Unknown Sulfamethoxazole 08/13/2024 Other Reaction(s): Unknown Medications Vit-Fe Fumarate-FA (PNV Plus Multivitamin) 27-1 MG tabletIndication s:First trimester Take 1 tablet by mouth Daily 30 tablet 11 04/29/2024 Active EPINEPHrine (Epipen) 0.3 MG/0.3ML injection syringe 08/29/2024 Active Flonase Allergy Relief 50 MCG/ACT nasal spray 1 (one) time each day at the same time 06/04/2024 Active loratadine (Claritin) 10 MG tablet 1 (one) time each day at the same time 06/04/2024 Active Active Problems Problem Noted Date Diagnosed Date Third trimester 11/23/2024 34 weeks gestation of 11/23/2024 Family history of trisomy 13 09/30/2023 Estimated Date of Delivery Comme nts Yes 12/29/2024 Based on last me nstrual period of 03/24/2024 Encounters Date Type Department Care Team Description 11/23/2024 2:20 PM EDT Routine [facility] BCP OB [address] [place] [address] Dave Ortiz, DO Third trimester ; 34 weeks gestation of 11/23/2024 Bamboo flowsheet [facility] OB [facility] [place] [address] Dave Ortiz, DO 11/17/2024 Clinisync Result Encounter NOMS External Department Unsolicited Dave Ortiz, DO 11/17/2024 Abstract [facility] OB [address] [place] [address] Dave Ortiz, DO 11/16/2024 Abstract [facility] OB [address] [place] [address] Dave Ortiz, DO 11/12/2024 Patient Outreach [facility] [address] [place] [address] Elena Felix LPN 11/10/2024 11:00 AM EDT Routine [facility] BCP OB [address] [place] [address] Dave Ortiz, DO 33 weeks gestation of ; Third trimester 11/10/2024 Clinisync Result Encounter [facility]OMS External Department Unsolicited Dave Ortiz, DO 11/10/2024 Bamboo flowsheet [facility] OB [address] [place] [address] Dave Ortiz, DO 11/06/2024 Clinisync Result Encounter NOMS External Department Unsolicited Dave Ortiz, DO 11/03/2024 Clinisync Result Encounter NOMS External Department Unsolicited Dave Ortiz, DO 11/03/2024 Clinisync Result Encounter NOMS External Department Unsolicited Dave Ortiz, DO 10/26/2024 11:20 AM EDT Routine [facility] OB [address] [place] [address] Dave Ortiz, DO 30 weeks gestation of ; Third trimester ; Nadia cisterna magna ([facility]); 28 weeks gestation of ; SGA (small for gestational age) 10/26/2024 Clinisync Result Encounter NOMS External Department Unsolicited Dave Ortiz, DO 10/26/2024 Bamboo flowsheet [facility] OB [facility] [place] [address] Dave Ortiz, DO 10/20/2024 Telephone [facility] OB [address] [place] [address] Dave Ortiz, DO 10/19/2024 11:30 AM EDT Ancillary Procedure [facility] OB [facility] [place] [address] Nadia cisterna magna ([facility]) 10/18/2024 Travel 10/12/2024 9:20 AM EDT Routine [facility] OB [address] [place] [address] [address] Dave Ortiz, DO Third trimester ; 28 weeks gestation of ; Nadia cisterna magna ([facility]) 10/12/2024 Patient Outreach [facility] [address] [place] [address] Elena Felix LPN 10/12/2024 Bamboo flowsheet [facility] OB [facility] [place] [address] Dave Ortiz, DO 09/29/2024 Orders Only [facility] OB [address] [place] [address] Destinee Vazquez, COUNTER HAND 09/29/2024 Abstract [facility] OB [address] [place] [phone] Dave Ortiz, DO 09/10/2024 11:10 AM EDT Routine [facility] OB [address] [place] [address] [phone] Dave Ortiz, DO Well woman exam with routine gynecological exam; STD exposure; Vaginal discharge; Second trimester ; 24 weeks gestation of 09/10/2024 Clinisync Result Encounter NOMS External Department Unsolicited Dave Ortiz, DO 09/10/2024 External Result Encounter NOMS External Department Unsolicited Dave Ortiz, DO 09/10/2024 Bamboo flowsheet [facility] OB [address] [facility] [place] [address] Dave Ortiz, DO 09/08/2024 Patient Outreach [facility] [address] [place] [address] Elena Felix, COUNTER HAND 09/07/2024 Abstract [facility] OB [address] [place] [address] Dave Ortiz, DO 09/07/2024 Clinisync Result Encounter NOMS External Department Unsolicited Dave Ortiz, DO 09/07/2024 Telephone [facility] OB [address] [place] [address] [phone] Dave Ortiz, DO 08/28/2024 Abstract [facility] OB [address] [place] [address] [phone] Dave Ortiz, DO 08/25/2024 Telephone [facility] OB [address] [place] [address] Essie Platt MA from Last 3 Months [...] (171 lb) 11/23/2024 2:56 PM EDT Height 167.6 cm (5' 6 ) 10/24/2022 12:00 PM EDT Body Mass Index 27.6 10/24/2022 12:00 PM EDT Plan of Treatment Upcoming Encounters Date Type Department Care Team (Late st Contact Info) Description 11/30/2024 1:00 PM EDT Routine [facility] BCP OB [address] [place] [address] Dave Ortiz, DO [address] [facility] [address] [place], [place] [address] Health Maintenance Due Date Last Done Comments [...] Routine 11/23/2024 2:58 PM EDT Third trimester US OB BPP W NON-STRESS 11/17/2024 10:17 [...] PM EDT [facility] CMP (CMP) (FOR REMOTE [facility] USE) Routine 10/26/2024 12:52 PM EDT POCT [...] EDT from Last 3 Months Results * (ABNORMAL) POCT urinalysis dipstick manually resulted (11/23/2024 2:58 PM EDT) Only the most recent of5 resultswithin the time period is included. Color, [...] - Positive Urine 11/23/2024 2:58 PM EDT us Dave Ortiz DO POINT OF CARE TEST ENTER/EDIT OR DERABLES Final Result * US OB BPP W NON-STRESS (11/17/2024 10:17 AM EDT) Only the most recent of4 resultswithin the time period is included. Anatomical Region Laterality Modality Other 11/17/2024 10:1 7 AM EDT Narrative 11/17/2024 10:19 AM EDT [address] [address] Ultrasound Report Signed Patient: ZULEIKA WYATT MR#: [id number] : 1990 Acct:[id number] Age/Sex: 34 / F ADM Date: 11/17/24 Loc: US Attending Dr: Dave Ortiz D.O. Ordering Physician: Dave Ortiz D.O. Date of Service: 11/17/24 Procedure(s): US OB BPP w non-stress Accession Number(s): [id number] cc: Dave Ortiz D.O.; Ramon Avila M.D. The [place] [id number] Patient Name: ZULEIKA WYATT MRN: [id number] date: 1990 Sex: F Assigned Patient Location: [facility] Current Patient Location: Accession/Order Number: [id number] Exam Date: 11/17/2024 10:16 Report Date: 11/17/2024 [...] Mahan M.D. 11/17/2024 10:17 AM Dictation Location: [place] [address] Electronically authenticated by: [id number] Y Date: 11/17/2024 10:17 Dictated By: Adela Mahan M.D. Signed By: 11/17/24 1019 DD/ 1017 TD/TT: Gas Examiner: Procedure Note Radiology, Radiologist, - 11/17/2024 [place] [address] Ultrasound Report Signed Patient: ZULEIKA WYATT LMR#: [id number] : 1990Acct:[id number] Age/Sex: 34 / FADM Date: 11/17/24 Loc: US Attending Dr: Dave Ortiz D.O. Ordering Physician: Dave Ortiz D.O. Date of Service: 11/17/24 Procedure(s): US OB BPP w non-stress Accession Number(s): [id number] cc: Dave Ortiz D.O.; Ramon Avila M.D. [place] [address] Patient Name: ZULEIKA WYATT MRN: [facility]:[id number] date: 1990 Sex: F Assigned Patient Location: [facility] Current Patient Location: Accession/Order Number: [id number] Exam Date: 11/17/2024 10:16 Report Date: 11/17/2024 [...] Mahan M.D. 11/17/2024 10:17 AM Dictation Location: [place] [address] Electronically authenticated by: [id number] Y Date: 0:17 Dictated By: Adela Mahan M.D. Signed By:11/17/24 1019 DD/ 1017 TD/TT: Gas Examiner: us Dave Diana DO [facility] Final Result * US OB GROWTH (11/03/2024 4:34 PM EDT) Anatomical Region Laterality Modality Other 11/03/2024 4:34 PM EDT Narrative 11/03/2024 4:36 [place] [address] Ultrasound Report Signed Patient: ZULEIKA WYATT MR#: [id number] : 1990 Acct:[id number] Age/Sex: 34 / F ADM Date: 11/03/24 Loc: US Attending Dr: Dave Ortiz D.O. Ordering Physician: Dave Ortiz D.O. Date of Service: 11/03/24 Procedure(s): US OB growth Accession Number(s): [id number] cc: Dave Ortiz D.O.; Ramon Avila M.D. [place] [id number] Patient Name: ZULEIKA WYATT MRN: [id number] date: 1990 Sex: F Assigned Patient Location: US Current Patient Location: Accession/Order Number: [id number] Exam Date: 11/03/2024 16:30 Report Date: 11/03/2024 [...] Boyce M.D. 11/03/2024 4:34 PM Dictation Location: [place] Electronically authenticated by: [id number] Y Date: 11/03/2024 16:34 Dictated By: Aaron Boyce D.O. Signed By: 11/03/24 1636 DD/ 33 TD/TT: Gas Examiner: Procedure Note Radiology, Radiologist, - 11/03/2024 [place] [address] Ultrasound Report Signed Patient: ZULEIKA WYATT LMR#: [id number] : 1990Acct:[id number] Age/Sex: 34 / FADM Date: 11/03/24 Loc: US Attending Dr: Dave Ortiz D.O. Ordering Physician: Dave Ortiz D.O. Date of Service: 11/03/24 Procedure(s): US OB growth Accession Number(s): [id number] cc: Dave Ortiz D.O.; Ramno Avila M.D. [place] [id number] Patient Name: ZULEIKA WYATT MRN: [id number] date: 1990 Sex: F Assigned Patient Location: US Current Patient Location: Accession/Order Number: [id number] Exam Date: 11/03/2024 16:30 Report Date: 11/03/2024 [...] Boyce M.D. 11/03/2024 4:34 PM Dictation Location: [place] [address] Electronically authenticated by: [id number] Y Date: 6:34 Dictated By: Aaron Boyce D.O. Signed By:11/03/24 1636 DD/ 1634 TD/TT: Gas Examiner: us Dave Diana DO [facility] Final Result * (ABNORMAL) [facility] CMP (CMP) (FOR REMOTE [facility] USE) (10/26/2024 12:52 PM EDT) SODIUM 134(L) 136 - 145 mmol/L [facility] POTASSIUM 4.1 3.5 - 5.1 mmol/L [facility] CHLORIDE 102 98 - 107 mmol/L [facility] CARBON DIOXIDE 24.0 21.0 - 32.0 mmol/L [facility] ANION GAP 12.1 [facility] GLUCOSE 82 74 - 106 mg/dL [facility] BLOOD UREA NITROGEN 6.0(L) 7.0 - 18.0 mg/dL [facility] CREATININE 0.55 0.55 - 1.02 mg/dL [facility] TB[facility] EGFR-AF NIUEAN >60 >=60 mL/min/1. 73m 2 [facility] EGFR-NON AF NIUEAN >60 >=60 mL/min/1. 73m 2 [facility] BUN [...] [facility] Final Result [facility] * (ABNORMAL) ALL CBC WITH AUTO DIFF [...] PM EDT 10/26/2024 12:53 PM EDT Narrative SHANEKA - 10/26/2024 1:51 PM EDT us Dave Ortiz DO SHANEKA Final Result [facility] * US OB follow up transabdominal approach [...] II, MD, PHD at 21-Oct-2024 08:41:57 AM [facility] Procedure Note Eloisa Gonzalez MD - [...] signed by ELOISA GONZALEZ II, MD, PHD [id number] 08:41:57 AM [facility] us Dave Diana DO IMG OB US PROCEDURES Final Resul t * RECURRENT VAGINITIS (HTRX) (09/10/2024 12:23 PM EDT) ATOPOBIUM VAGINAE 0.000 19.961 - 24.689 ppm 09/11/2024 6:30 AM EDT [facility] ATOPOBIUM VAGINAE Not Detected 19.961 - 24.689 ppm 09/11/2024 6:30 AM EDT [facility] BVAB 2,3 (BACTERIAL VAGINOSIS ASSOCIATED BACTERIA 2, 3); MOBILUNCUS SPP 0.000 19.961 - 24.689 ppm 09/11/2024 6:30 AM EDT [facility] BVAB 2,3 (BACTERIAL VAGINOSIS ASSOCIATED BACTERIA 2, 3); MOBILUNCUS SPP Not Detected 19.961 - 24.689 ppm 09/11/2024 6:30 AM EDT [facility] JEREMY ALBICANS, PARAPSILOSIS, TROPICALIS 0.000 19.961 - 30.770 ppm 09/11/2024 6:30 AM EDT [facility] JEREMY ALBICANS, PARAPSILOSIS, TROPICALIS Not Detected 19.961 - 30.770 ppm 09/11/2024 6:30 AM EDT [facility] JEREMY GLABRATA 0.000 23.000 - 32.138 ppm 09/11/2024 6:30 AM EDT [facility] JEREMY GLABRATA Not Detected 23.000 - 32.138 ppm 09/11/2024 6:30 AM EDT [facility] JEREMY KRUSEI 0.000 23.000 - 32.271 ppm 09/11/2024 6:30 AM EDT [facility] JEREMY KRUSEI Not Detected 23.000 - 32.271 ppm 09/11/2024 6:30 AM EDT [facility] CHLAMYDIA TRACHOMATIS 0.000 23.000 - 31.467 ppm 09/11/2024 6:30 AM EDT [facility] CHLAMYDIA TRACHOMATIS Not Detected 23.000 - 31.467 ppm 09/11/2024 6:30 AM EDT [facility] GARDNERELLA VAGINALIS 0.000 19.961 - 24.689 ppm 09/11/2024 6:30 AM EDT [facility] GARDNERELLA VAGINALIS Not Detected 19.961 - 24.689 ppm 09/11/2024 6:30 AM EDT [facility] MEGASPHAERA (TYPES 1, 2) 0.000 19.961 - 24.689 ppm 09/11/2024 6:30 AM EDT [facility] MEGASPHAERA (TYPES 1, 2) Not Detected 19.961 - 24.689 ppm 09/11/2024 6:30 AM EDT [facility] NEISSERIA GONORRHOEAE 0.000 23.000 - 32.117 ppm 09/11/2024 6:30 AM EDT [facility] NEISSERIA GONORRHOEAE Not Detected 23.000 - 32.117 ppm 09/11/2024 6:30 AM EDT [facility] TRICHOMONAS VAGINALIS 0.000 23.000 - 32.119 ppm 09/11/2024 6:30 AM EDT [facility] TRICHOMONAS VAGINALIS Not Detected 23.000 - 32.119 ppm 09/11/2024 6:30 AM EDT [facility] MYCOPLASMA GENITALIUM 0.000 19.961 - 24.689 ppm 09/11/2024 6:30 AM EDT [facility] MYCOPLASMA GENITALIUM Not Detected 19.961 - 24.689 ppm 09/11/2024 6:30 AM EDT [facility] Tissue 09/10/2024 12:2 3 PM EDT 09/11/2024 1:40 AM EDT us Dave Ortiz DO LAB BLOOD ORDERABLES Final Resul t [facility] [address] [place] [address] * IGP,APTIMA HPV,AGE GDLN (09/10/2024 11:42 AM EDT) AGE GDLN ACOG TESTING Note . [facility] Comment: TESTS RESULT FLAG UNITS REF RANGE LAB Clinician Provided Cytology Information Source.............[facility] Other.............. No. of containers..01 ThinPrep Vial Age Nilda VALE Krista... 3065 01 FLAG LEGEND: L-Low Normal,H-High Normal,LL-Alert Low,HH-Alert High <-Panic Low,>-Panic High,A-Abnormal,AA-Critical Abnormal Performed at: 01 =[facility] [address] Joann Denney MD, IGP, APTIMA HPV, RFX 16/18,45 Note . [facility] Comment: TESTS RESULT FLAG UNITS REF RANGE LAB DIAGNOSIS: 02 NEGATIVE FOR INTRAEPITHELIAL LESION OR MALIGNANCY. Specimen adequacy: 02 Satisfactory for evaluation. No endocervical component is identified. An endocervical component is not commonly seen in the patient. Performed by: 02 Mindy Martel, Worm Picker (ASCP) . 02 Note: Note 02 The [...] <-Panic Low,>-Panic High,A-Abnormal,AA-Critical Abnormal Performed at: [address] [address] Joann Denney MD, HPV APTIMA Negative Negative [facility] Comment: This nucleic acid amplification test detects fourteen high- risk HPV types (16,18,31,33,35,39,45,51,52,56,58,59,66,68) without differentiation. Performed at: =[address] [id number] Stamp Collector: Joann Denney MD, Phone: [phone] Performed at: [address] [id number] Stamp Collector: Joann Denney MD, Phone: [phone] 09/10/2024 11:4 2 AM EDT 09/10/2024 3:18 PM EDT Narrative [facility] - 09/14/2024 12:08 PM EDT SPATULA-ALONE ENDOCERVIX us Dave Ortiz DO LAB BLOOD ORDERABLES Final Resul t Performing Organization Address [facility]/ZIP Co de Phone Number [facility] TB * Pap Smear (09/10/2024 12:00 AM EDT) Swab Cervical swab / Unknown us Noms Jessenia Ortiz Nurse LAB CYTOLOGY ORDERABLES Final Result Performing Organization Address City/[facility]/ZIP Co de Phone Number EXTERNAL LAB * GLUCOSE 1 HOUR (09/07/2024 11:45 AM EDT) GLUCOSE 1 HOUR 102 <130 mg/dL [facility] 09/07/2024 11:4 5 AM EDT 09/07/2024 11:55 AM EDT Narrative [facility] - 09/07/2024 12:52 PM EDT us Dave Ortiz DO LAB BLOOD ORDERABLES Final Resul t [facility] from Last 3 Months Additional Health Concerns Active Problems Noted Date Diagnosed Date OB Reminders 06/23/2024 Insurance * Guarantor: Zuleika Wyatt Account Type Relation to Patient Date of Phone Billing Address Personal/Family Self 1990 [address] [place] [address] [employer] MEDICA[place] Care Teams Software Clerk Relationship Specialty Start Date End Date Unallocated, Noms Provider, [address] [place] [address] PCP - General 03/04/23 Jaime Wyatt PA [address] [place] [address] Referring Physician Physical Medicine and Rehabilitation 03/04/23
--- OUTSIDE RECORDS SUMMARY | 2024-11-24 08:58 | XMS_ITS | Encounter Summary ---
Author Organization [facility] Address [address] [place] [address] Care Team Providers Care Buffing Line Set Up Worker Name Role Phone Yoselin Jaime FERMIN Unavailable Unallocated, Noms Provider Primary Care Provi kwabena Encounter Details Date Type Department Care Team (Late st Contact Info) Description 11/16/2024 Abstract [facility] OB [address] [place] [address] Cuong Ortiz DO [facility] [address], [place] [address] Social History Tobacco Use Types Packs/Day Years [...] Routine [facility] BCP OB [address] [place] [address] Cuong Ortiz DO [address] [place] [address] [place] [address] documented as of this encounter Goals Goal Patient Goal Type Associated Problems Recent Progress Patient-Stated? Author Reminders Care Plan OB Reminders No Open Scheduling, Background documented as of this encounter Visit Diagnoses Not on filedocumented in this encounter Additional Health Concerns Active Problems Noted Date Diagnosed Date OB Reminders 06/23/2024 documented as of this encounter Care Teams Buffing Line Set Up Worker Relationship Specialty Start Date End Date Unallocated, Noms Provider, [address] [place] [address] PCP - General 03/04/23 Jaime Wyatt PA [address] [place] [address] Referring Physician Physical Medicine and Rehabilitation 03/04/23 documented as of this encounter
--- OUTSIDE RECORDS SUMMARY | 2024-11-24 08:58 | XMS_ITS | Encounter Summary ---
Author Organization [facility] Address [address] [facility] [place] [address] Care Team Providers Care Supply Officer Name Role Phone Yoselin Jaime FERMIN Unavailable Unallocated, Noms Provider Primary Care Provi kwabena Encounter Details Date Type Department Care Team (Late Contact Info) Description 11/23/2024 Bamboo flowsheet N[facility] OB [address] [place] [address] Cuong Ortiz DO [facility] [place] [address] Social History Tobacco Use Types Packs/Day Years [...] Department Care Team (Late Contact Info) Description 11/30/2024 1:00 PM EDT Routine [facility] BCP OB [address] [place] [address] Cuong Ortiz DO [address] [place] [address] documented as of this encounter Goals Goal Patient Goal Type Associated Problems Recent Progress Patient-Stated? Author Reminders Care Plan OB Reminders No Open Scheduling, Background documented as of this encounter Visit Diagnoses Not on filedocumented in this encounter Additional Health Concerns Active Problems Noted Date Diagnosed Date OB Reminders 06/23/2024 documented as of this encounter Care Teams Supply Officer Relationship Specialty Start Date End Date Unallocated, Noms Provider, [address] [place] [address] PCP - General 03/04/23 Jaime Wyatt PA [address] [place] [address] Referring Physician Physical Medicine and Rehabilitation 03/04/23 documented as of this encounter
--- OUTSIDE RECORDS SUMMARY | 2024-11-24 08:58 | XMS_ITS | Encounter Summary ---
Author Organization [facility] Address [address] [facility] [place] [address] Care Team Providers Care Neurological Physiotherapist Name Role Phone Jaime Wyatt Unavailable Unallocated, Noms Provider Primary Care Provi kwabena Encounter Details Date Type Department Care Team (Late st Contact Info) Description 11/07/2023 Abstract [facility] [address] [facility] [place] [address] Cuong Ortiz DO [facility] Viviana Vick, [place] [address] Social History Tobacco Use Types Packs/Day Years [...] Routine N[facility]S BCP OB [address] [place] [address] Cuong Ortiz DO [facility] [place], [place] [id number] documented as of this encounter Visit Diagnoses Not on filedocumented in this encounter Care Teams Neurological Physiotherapist Relationship Specialty Start Date End Date Unallocated, Noms Provider, [address] [place], [place] [phone] PCP - General 03/04/23 Jaime Wyatt PA [address] [place], [place] [phone] Referring Physician Physical Medicine and Rehabilitation 03/04/23 documented as of this encounter
--- OUTSIDE RECORDS SUMMARY | 2024-11-24 08:58 | XMS_ITS | Encounter Summary ---
Author Organization [facility] Address [address] [facility] [place] [address] Care Team Providers Care Dance Director Name Role Phone Jaime Wyatt Unavailable Unallocated, Noms Provider Primary Care Provi kwabena Encounter Details Date Type Department Care Team (Late st Contact Info) Description 12/13/2023 Abstract [facility]CP [facility] [address] [place] [id number] Destinee Vazquez LPN [address] [facility] Derek [place] [address] Social History Tobacco Use Types Packs/Day Years [...] PM EDT Routine [facility] BCP [facility] [address] [place] [address] Cuong Ortiz DO [address] [facility] [address] [place] [id number] documented as of this encounter Visit Diagnoses Not on filedocumented in this encounter Care Teams Dance Director Relationship Specialty Start Date End Date Unallocated, Noms Provider, [address] [place], [place] [phone] PCP - General 03/04/23 Jaime Wyatt PA [address] [place], [place] [phone] Referring Physician Physical Medicine and Rehabilitation 03/04/23 documented as of this encounter
--- OUTSIDE RECORDS SUMMARY | 2024-11-24 08:58 | XMS_ITS | Encounter Summary ---
Author Organization [facility] Address [address] [facility] [place] [address] Care Team Providers Care Salesperson Pianos And Organs Name Role Phone Yoselin Jaime FERMIN Unavailable Unallocated, Noms Provider Primary Care Provi kwabena Encounter Details Date Type Department Care Team (Late st Contact Info) Description 05/19/2024 Clinisync Result Encounter NOMS External Department Unsolicited Dave Ortiz, [facility] Uri [place]ick, [place] [address] Social History Tobacco Use Types Packs/Day Years [...] Routine NOMS BCP OB 102 [place] [phone] Dave Ortiz DO [facility] [place] [address] documented as of this encounter Procedures Procedure Name Priority Date/Time Associated Diagnosis Comments US OB TRANSVAGINAL 05/19/2024 7: 24 AM EST documented in this encounter Results * US OB TRANSVAGINAL (05/19/2024 7:24 AM EST) Anatomical Region Laterality Modality Other 05/19/2024 7:24 AM EST Narrative 05/19/2024 7:27 [place] [address] Ultrasound Report Signed Patient: ZULEIKA WADDELL MR#: [id number] : 1990 Acct:[id number] Age/Sex: 34 / F ADM Date: 05/18/24 Loc: US Attending Dr: Dave Ortiz D.O. Ordering Physician: Dave Ortiz D.O. Date of Service: 05/18/24 Procedure(s): US OB transvaginal Accession Number(s): [id number] cc: Dave Ortiz D.O.; YoselinJaime [place] [address] Patient Name: ZULEIKA WADDELL MRN: [id number] date: 1990 Sex: F Assigned Patient Location: US Current Patient Location: Accession/Order Number: [id number] Exam Date: 05/18/2024 17:15 Report Date: 05/19/2024 [...] M.D. Signed By: 05/19/24726 DD/ 3 TD/TT: Roofing Subcontractor: Procedure Note Radiology, Radiologist, - 05/19/2024 [place] [address] Ultrasound Report Signed Patient: ZULEIKA WADDELL LMR#: [id number] : 1990Acct:[id number] Age/Sex: 34 / FADM Date: 05/18/24 Loc: US Attending Dr: Dave Ortiz D.O. Ordering Physician: Dave Ortiz D.O. Date of Service: 05/18/24 Procedure(s): US OB transvaginal Accession Number(s): [id number] cc: Dave Ortiz D.O.; Jaime Waddell [place] [id number] Patient Name: ZULEIKA WADDELL MRN: [id number] date: 1990 Sex: F Assigned Patient Location: US Current Patient Location: Accession/Order Number: [id number] Exam Date: 05/18/2024 17:15 Report Date: 05/19/2024 [...] Crump M.D. Signed By:05/19/24726 DD/ 3 TD/TT: Roofing Subcontractor: us Dave Diana DO [facility] Final Result documented in this encounter Visit Diagnoses Not on filedocumented in this encounter Care Teams Salesperson Pianos And Organs Relationship Specialty Start Date End Date Unallocated, Noms Provider, [address] [place] [address] PCP - General 03/04/23 Jaime Waddell PA [address] [place] [address] Referring Physician Physical Medicine and Rehabilitation 03/04/23 documented as of this encounter
--- OUTSIDE RECORDS SUMMARY | 2024-11-24 08:58 | XMS_ITS | Encounter Summary ---
Author Organization [facility] Address [address] [facility] [place] [address] Care Team Providers Care Cut Off Saw Operator Metal Name Role Phone Yoselin Jaime FERMIN Unavailable Unallocated, Noms Provider Primary Care Provi kwabena Encounter Details Date Type Department Care Team (Late st Contact Info) Description 11/07/2023 Clinisync Result Encounter NOMS External Department Unsolicited Dave Ortiz, [facility] Uri [place], [place] [address] Social History Tobacco Use Types Packs/Day Years [...] NOMS BCP OB 102 [place] [phone] Dave Ortiz DO [facility] [place] [address] documented as of this encounter Procedures Procedure Name Priority Date/Time Associated Diagnosis Comments US OB BPP W NON-STRESS 11/07/2023 7:10 AM EDT documented in this encounter Results * US OB BPP W NON-STRESS (11/07/2023 7:10 AM EDT) Anatomical Region Laterality Modality Other 11/07/2023 7:10 AM EDT Narrative 11/07/2023 7:13 [place] [address] Ultrasound Report Signed Patient: ZULEIKA WADDELL MR#: [id number] : 1990 Acct:[id number] Age/Sex: 33 / F ADM Date: 11/06/23 Loc: US Attending Dr: Dave Ortiz D.O. Ordering Physician: Dave Ortiz D.O. Date of Service: 11/06/23 Procedure(s): US OB BPP w non-stress Accession Number(s): [id number] cc: Dave Ortiz D.O.; Jaime Waddell [place] [address] Patient Name: ZULEIKA WADDELL MRN: [id number] date: 1990 Sex: F Assigned Patient Location: Current Patient Location: [facility] Accession/Order Number: [id number] Exam Date: 11/06/2023 14:19 Report Date: 11/07/2023 [...] M.D. Signed By: 11/07/23712 DD/ 9 TD/TT: Cricket Coach: Procedure Note Radiology, Radiologist, - 11/07/2023 [place] [address] Ultrasound Report Signed Patient: ZULEIKA WADDELL LMR#: [id number] : 1990Acct:[id number] Age/Sex: 33 / FADM Date: 11/06/23 Loc: US Attending Dr: Dave Ortiz D.O. Ordering Physician: Dave Ortiz D.O. Date of Service: 11/06/23 Procedure(s): US OB BPP w non-stress Accession Number(s): [id number] cc: Dave Ortiz D.O.; Jaime Waddell [place] [id number] Patient Name: ZULEIKA WADDELL MRN: [id number] date: 1990 Sex: F Assigned Patient Location: Current Patient Location: [facility] Accession/Order Number: [id number] Exam Date: 11/06/2023 14:19 Report Date: 11/07/2023 [...] Crump M.D. Signed By:11/07/23712 DD/ 9 TD/TT: Cricket Coach: us Dave Diana DO [facility] Final Result documented in this encounter Visit Diagnoses Not on filedocumented in this encounter Care Teams Cut Off Saw Operator Metal Relationship Specialty Start Date End Date Unallocated, Noms Provider, [address] [place], [place] [phone] PCP - General 03/04/23 Jaime Waddell PA [address] [place] [address] Referring Physician Physical Medicine and Rehabilitation 03/04/23 documented as of this encounter
--- OUTSIDE RECORDS SUMMARY | 2024-11-24 08:58 | XMS_ITS | Encounter Summary ---
Author Organization [facility] Address [address] [facility] [place] [address] Care Team Providers Care Production Quality Manager Name Role Phone Yoselin Jaime FERMIN Unavailable Unallocated, Noms Provider Primary Care Provi kwabena Encounter Details Date Type Department Care Team (Late st Contact Info) Description 06/30/2024 Abstract [facility] BCP OB [address] [place] [address] Cuong Ortiz, DO [address] [place], [place] [address] Social History Tobacco Use Types Packs/Day Years [...] Routine [facility] BCP OB [address] [place] [address] Cuong Ortiz, DO [address] [place], [facility]11 documented as of this encounter Goals Goal Patient Goal Type Associated Problems Recent Progress Patient-Stated? Author Reminders Care Plan OB Reminders No Open Scheduling, Background documented as of this encounter Visit Diagnoses Not on filedocumented in this encounter Additional Health Concerns Active Problems Noted Date Diagnosed Date OB Reminders 06/23/2024 documented as of this encounter Care Teams Production Quality Manager Relationship Specialty Start Date End Date Unallocated, Noms Provider, [address] [place], [place] [phone] PCP - General 03/04/23 Jaime Wyatt PA [address] [place] [address] Referring Physician Physical Medicine and Rehabilitation 03/04/23 documented as of this encounter
--- OUTSIDE RECORDS SUMMARY | 2024-11-24 08:58 | XMS_ITS | Encounter Summary ---
Author Organization [facility] Address [address] [facility] [place] [address] Care Team Providers Care Automotive Parts Counter Assistant Name Role Phone Jaime Wyatt Unavailable Unallocated, Noms Provider Primary Care Provi kwabena Encounter Details Date Type Department Care Team (Late st Contact Info) Description 11/18/2023 Abstract [facility]CP OB [address] [facility] [place] [phone] Destinee Vazquez LPN [address] [facility] Derek [place] [address] Social History Tobacco Use Types Packs/Day Years [...] PM EDT Routine [facility] BCP OB [address] [facility] [place] [address] Cuong Ortiz DO [address] [facility] [address] [place] [phone] documented as of this encounter Visit Diagnoses Not on filedocumented in this encounter Care Teams Automotive Parts Counter Assistant Relationship Specialty Start Date End Date Unallocated, Noms Provider, [address] [place], [place] [phone] PCP - General 03/04/23 Jaime Wyatt PA [address] [place], [place] [address] Referring Physician Physical Medicine and Rehabilitation 03/04/23 documented as of this encounter
--- OUTSIDE RECORDS SUMMARY | 2024-11-24 08:58 | XMS_ITS | Encounter Summary ---
Author Organization [facility] Address [address] [place] [facility] [place] [address] Care Team Providers Care Home Health Lpn Name Role Phone Yoselin Jaime FERMIN Unavailable Unallocated, Noms Provider Primary Care Provi kwabena Encounter Details Date Type Department Care Team (Late st Contact Info) Description 11/06/2023 Clinisync Result Encounter NOMS External Department Unsolicited Dave Ortiz, [facility] [place], [place] [address] Social History Tobacco Use Types Packs/Day Years [...] Routine NOMS BCP OB 102 [place] [phone] Dave Ortiz DO [facility] [place] [address] documented as of this encounter Procedures Procedure Name Priority Date/Time Associated Diagnosis Comments US OB GROWTH 11/06/2023 3:54 PM EDT documented in this encounter Results * US OB GROWTH (11/06/2023 3:54 PM EDT) Anatomical Region Laterality Modality Other 11/06/2023 3:54 PM EDT Narrative 11/06/2023 3:57 [place] [address] Ultrasound Report Signed Patient: ZULEIKA WADDELL MR#: [id number] : 1990 Acct:[id number] Age/Sex: 33 / F ADM Date: 11/06/23 Loc: US Attending Dr: Dave Ortiz D.O. Ordering Physician: Dave Ortiz D.O. Date of Service: 11/06/23 Procedure(s): US OB growth Accession Number(s): [id number] cc: Dave Ortiz D.O.; Jaime Waddell [place] [address] Patient Name: ZULEIKA WADDELL MRN: [id number] date: 1990 Sex: F Assigned Patient Location: US Current Patient Location: Accession/Order Number: [id number] Exam Date: 11/06/2023 14:19 Report Date: 11/06/2023 [...] M.D. Signed By: 11/06/231556 DD/ 53 TD/TT: Receivables Specialist: Procedure Note Radiology, Radiologist, MD - 11/06/2023 [place] [address] Ultrasound Report Signed Patient: ZULEIKA WADDELL LMR#: [id number] : 1990Acct:[id number] Age/Sex: 33 FADM Date: 11/06/23 Loc: US Attending Dr: Dave Ortiz D.O. Ordering Physician: Dave Ortiz D.O. Date of Service: 11/06/23 Procedure(s): US OB growth Accession Number(s): [id number] cc: Dave Ortiz D.O.; Jaime Waddell [place] [address] Patient Name: ZULEIKA WADDELL MRN: [id number] date: 1990 Sex: F Assigned Patient Location: US Current Patient Location: Accession/Order Number: [id number] Exam Date: 11/06/2023 14:19 Report Date: 11/06/2023 [...] M.D. Signed By:11/06/23 1557 DD/ 53 TD/TT: Receivables Specialist: us Dave Diana DO [facility] Final Result documented in this encounter Visit Diagnoses Not on filedocumented in this encounter Care Teams Home Health Lpn Relationship Specialty Start Date End Date Unallocated, Noms Provider, [address] [place], [place] [phone] PCP - General 03/04/23 Jaime Waddell PA [address] [place], [place] [phone] Referring Physician Physical Medicine and Rehabilitation 03/04/23 documented as of this encounter
--- OUTSIDE RECORDS SUMMARY | 2024-11-24 08:59 | XMS_ITS ---
Author Organization [facility] Address [address] [facility] [place] [address] Care Team Providers Care Burr Sander Name Role Phone Jaime Wyatt Unavailable Unallocated, Noms Provider Primary Care Provi kwabena [facility]) Status:Enrolled (Active) Start date:08/11/2024 Enrollment date:08/12/2024 Enrollment reason:Identified by Health Plan Case Team Name Relationship Phone Elena Felix LPN(Responsible Staff) Licensed Prac tical Nurse Continued Care and Services Coordination
--- OUTSIDE RECORDS SUMMARY | 2024-11-24 08:59 | XMS_ITS | Encounter Summary ---
Author Organization [facility] Address [address] [facility] [place] [address] Care Team Providers Care Manager Of Corporate Name Role Phone Jaime Wyatt Unavailable Unallocated, Noms Provider Primary Care Provi kwabena Encounter Details Date Type Department Care Team (Late st Contact Info) Description 06/06/2023 Abstract [facility] BCP OB [address] [facility] [place] [address] Destinee Vazquez LPN [address] [facility] Derek [place] [address] Social History Tobacco Use Types Packs/Day Years [...] PM EDT Routine [facility]S BCP OB [address] [facility] [place] [address] Cuong Ortiz DO [address] [facility] [address] Derek [place] [phone] documented as of this encounter Visit Diagnoses Not on filedocumented in this encounter Care Teams Manager Of Corporate Relationship Specialty Start Date End Date Unallocated, Noms Provider, [address] [place], [place] [phone] PCP - General 03/04/23 Jaime Wyatt PA [address] [place], [place] [address] Referring Physician Physical Medicine and Rehabilitation 03/04/23 documented as of this encounter
--- OUTSIDE RECORDS SUMMARY | 2024-11-24 08:59 | XMS_ITS | Encounter Summary ---
Author Organization [facility] Address [address] [place] [address] Care Team Providers Care Classification And Treatment Director Name Role Phone Unavailable Primary Care Provider Unavailabl e Source Comments In the event this information is protected by the Federal Confidentiality of Alcohol and Drug AbusePatient Records regulations: The Federal rules restrict any use of the information to criminally investigate or prosecute any alcohol or drug abuse patient.[facility] Encounter Details Date Type Department Care Team (Late st Contact Info) Description 02/10/2022 Lab Requisition [facility] [address] [place] [address] Eleazar Hess PA-C [address] [facility] [place] [phone] Social History Tobacco Use Types Packs/Day Years [...] Report SEE NOTE 02/22/2022 1:25 PM EDT [facility] Comment: Finegoldia magna Organism identified by client [...] caution. REKHA M Beta-Lactamase Neg Performed by [facility], [address] [place] [address] www.[email or web address], Piero Beaver MD, PHD, Lab. Director Micro Specimen SPECIMEN FROM ABSCESS / Unknown 02/05/2022 8:00 PM EDT 02/10/2022 3:57 PM EDT Eleazar Hess PA-C LABORATORY Final Result [facility] [address] [place] [address] * (ABNORMAL) ORGANISM TARYN (02/05/2022 8:00 PM EDT) Culture, Organism TARYN Result Finegoldia magna(A) MINIMUM INHIBITORY CONCENTRATION ([place]) 02/24/2022 2:08 PM EDT [facility] Micro Specimen SPECIMEN FROM ABSCESS / Unknown 02/05/2022 8:00 PM EDT 02/10/2022 3:57 PM EDT Narrative [facility] - 02/24/2022 2:08 PM EDT Susceptibility results have been completed by [facility]. us Eleazar Hess PA-C LABORATORY Final Result Performing Organization Address City/[facility]/ZIP Co de Phone Number [facility] [address] [address], [place] * (ABNORMAL) ORGANISM ID ANAEROBE (02/05/2022 8:00 PM EDT) Culture, Organism ID Anaerobe Finegoldia magna(A) 02/16/2022 3:33 PM EDT [facility] Micro Specimen SPECIMEN FROM ABSCESS / Unknown 02/05/2022 8:00 PM EDT 02/10/2022 3:57 PM EDT us Eleazar Hess PA-C LABORATORY Final Result Performing Organization Address [facility]/ZIP Co de Phone Number [facility] [address] [address], [place] documented in this encounter Visit Diagnoses Not on filedocumented in this encounter
--- OUTSIDE RECORDS SUMMARY | 2024-11-24 08:59 | XMS_ITS | Encounter Summary ---
Author Organization [facility] Address [id number] [address] [place] [address] Care Team Providers Care Manufacturing Business Analyst Name Role Phone Jaime Wyatt PA-C Primary Care Provider [phone] Encounter Details Date Type Department Care Team (Late st Contact Info) Description 03/26/2022 Telephone Maternal- Medicine at [facility] [address] [place] [phone] Tamika Branch LPN Social History Tobacco Use [...] on filedocumented in this encounter Care Teams Manufacturing Business Analyst Relationship Specialty Start Date End Date Jaime Wyatt, SADAF [address] [place], [place] [phone] PCP - General Physician Microbiology Coordinator 03/18/18 documented as of this encounter
--- OUTSIDE RECORDS SUMMARY | 2024-11-24 08:59 | XMS_ITS | Encounter Summary ---
Author Organization [facility] Address [address] [facility] [address] Care Team Providers Care Center Machine Operator Name Role Phone Yoselin Jaime FERMIN Unavailable Unallocated, Noms Provider Primary Care Provi kwabena Encounter Details Date Type Department Care Team (Late st Contact Info) Description 10/30/2023 Clinisync Result Encounter NOMS External Department Unsolicited Dave Ortiz, DO [facility] [place], [place] [address] Social History Tobacco Use Types Packs/Day Years [...] Routine NOMS BCP OB 102 [place] [phone] Dave Ortiz DO [facility] [place] [address] documented as of this encounter Procedures Procedure Name Priority Date/Time Associated Diagnosis Comments US OB BPP W NON-STRESS 10/30/2023 3:23 PM EDT documented in this encounter Results * US OB BPP W NON-STRESS (10/30/2023 3:23 PM EDT) Anatomical Region Laterality Modality Other 10/30/2023 3:23 PM EDT Narrative 10/30/2023 3:25 [place] [address] Ultrasound Report Signed Patient: ZULEIKA WADDELL MR#: [id number] : 1990 Acct:[id number] Age/Sex: 33 / F ADM Date: 10/30/23 Loc: US Attending Dr: Dave Ortiz D.O. Ordering Physician: Dave Ortiz D.O. Date of Service: 10/30/23 Procedure(s): US OB BPP w non-stress Accession Number(s): [id number] cc: Dave Ortiz D.O.; Jaime Waddell [place] [address] Patient Name: ZULEIKA WADDELL MRN: [id number] date: 1990 Sex: F Assigned Patient Location: [facility] Current Patient Location: Accession/Order Number: [id number] Exam Date: 10/30/2023 14:45 Report Date: 10/30/2023 [...] Signed By: 10/30/23 1525 DD/ 22 TD/TT: Airfield Engineer Officer: Procedure Note Radiology, Radiologist, - 10/30/2023 [place] [address] Ultrasound Report Signed Patient: ZULEIKA WADDELL LMR#: [id number] : 1990Acct:[id number] Age/Sex: 33 / FADM Date: 10/30/23 Loc: US Attending Dr: Dave Ortiz D.O. Ordering Physician: Dave Ortiz D.O. Date of Service: 10/30/23 Procedure(s): US OB BPP w non-stress Accession Number(s): [id number] cc: Dave Ortiz D.O.; Jaime Waddell [place] [address] Patient Name: ZULEIKA WADDELL MRN: [id number] date: 1990 Sex: F Assigned Patient Location: [facility] Current Patient Location: Accession/Order Number: [id number] Exam Date: 10/30/2023 14:45 Report Date: 10/30/2023 [...] M.D. Signed By:10/30/23 152 DD/ 22 TD/TT: Airfield Engineer Officer: us Dave Diana DO [facility] Final Result documented in this encounter Visit Diagnoses Not on filedocumented in this encounter Care Teams Center Machine Operator Relationship Specialty Start Date End Date Unallocated, Noms Provider, [address] [place] [address] PCP - General 03/04/23 Jaime Waddell PA [address] [place] [address] Referring Physician Physical Medicine and Rehabilitation 03/04/23 documented as of this encounter
--- OUTSIDE RECORDS SUMMARY | 2024-11-24 08:59 | XMS_ITS | Encounter Summary ---
Author Organization [facility] Address [address] [facility] [place] [address] Care Team Providers Care Manager Mail Name Role Phone Yoselin Jaime FERMIN Unavailable Unallocated, Noms Provider Primary Care Provi kwabena Encounter Details Date Type Department Care Team (Late st Contact Info) Description 10/16/2023 Clinisync Result Encounter NOMS External Department Unsolicited Dave Ortiz, [facility] [place], [place] [address] Social History Tobacco Use Types Packs/Day Years [...] [facility] BCP OB [address] [place] [phone] Dave Ortiz DO [place] [address] documented as of this encounter Procedures Procedure Name Priority Date/Time Associated Diagnosis Comments US OB BPP W NON-STRESS 10/16/2023 3:05 PM EDT documented in this encounter Results * US OB BPP W NON-STRESS (10/16/2023 3:05 PM EDT) Anatomical Region Laterality Modality Other 10/16/2023 3:05 PM EDT Narrative 10/16/2023 3:08 [place] [address] Ultrasound Report Signed Patient: ZULEIKA WADDELL MR#: [id number] : 1990 Acct:[id number] Age/Sex: 33 / F ADM Date: 10/16/23 Loc: [facility] 250-[address]: Dave Ortiz D.O. Ordering Physician: Dave Ortiz D.O. Date of Service: 10/16/23 Procedure(s): US OB BPP w non-stress Accession Number(s): [id number] cc: Dave Ortiz D.O.; WaddellJaime [place] [address] Patient Name: ZULEIKA WADDELL MRN: [id number] date: 1990 Sex: F Assigned Patient Location: [facility] Current Patient Location: [facility] Accession/Order Number: [id number] Exam Date: 10/16/2023 14:10 Report Date: 10/16/2023 [...] Signed By: 10/16/23 1508 DD/ 1505 TD/TT: Campaign Manager: Procedure Note Radiology, Radiologist, - 10/16/2023 [place] [address] Ultrasound Report Signed Patient: ZULEIKA WADDELL LMR#: [id number] : 1990Acct:[id number] Age/Sex: 33 / FADM Date: 10/16/23 Loc: [facility] 250-[address]: Dave Ortiz D.O. Ordering Physician: Dave Ortiz D.O. Date of Service: 10/16/23 Procedure(s): US OB BPP w non-stress Accession Number(s): [id number] cc: Dave Ortiz D.O.; Jaime Waddell [place] [address] Patient Name: ZULEIKA WADDELL MRN: [id number] date: 1990 Sex: F Assigned Patient Location: [facility] Current Patient Location: [facility] Accession/Order Number: [id number] Exam Date: 10/16/2023 14:10 Report Date: 10/16/2023 [...] M.D. Signed By:10/16/23 1508 DD/ 1505 TD/TT: Campaign Manager: us Dave Ortiz DO [facility] Final Result documented in this encounter Visit Diagnoses Not on filedocumented in this encounter Care Teams Manager Mail Relationship Specialty Start Date End Date Unallocated, Noms Provider, [address] [place], [place] [phone] PCP - General 03/04/23 Jaime Waddell PA [address] [place] [address] Referring Physician Physical Medicine and Rehabilitation 03/04/23 documented as of this encounter
--- OUTSIDE RECORDS SUMMARY | 2024-11-24 08:59 | XMS_ITS | Encounter Summary ---
Author Organization [facility] Address [address] [facility] [place] [address] Care Team Providers Care Asphalt Plant Worker Name Role Phone YoselinJaime FERMIN Unavailable Unallocated, Noms Provider Primary Care Provi kwabena Encounter Details Date Type Department Care Team (Late Contact Info) Description 11/10/2024 Bamboo flowsheet [facility] OB [address] [place] [address] Cuong Ortiz DO [facility] [place] [address] Social History Tobacco Use Types Packs/Day Years [...] Routine [facility] BCP OB [address] [place] [address] Cuong Ortiz DO [address] [place] [address] documented as of this encounter Goals Goal Patient Goal Type Associated Problems Recent Progress Patient-Stated? Author Reminders Care Plan OB Reminders No Open Scheduling, Background documented as of this encounter Visit Diagnoses Not on filedocumented in this encounter Additional Health Concerns Active Problems Noted Date Diagnosed Date OB Reminders 06/23/2024 documented as of this encounter Care Teams Asphalt Plant Worker Relationship Specialty Start Date End Date Unallocated, Noms Provider, [address] [place] [address] PCP - General 03/04/23 Jaime Wyatt PA [address] [place] [address] Referring Physician Physical Medicine and Rehabilitation 03/04/23 documented as of this encounter
--- OUTSIDE RECORDS SUMMARY | 2024-11-24 08:59 | XMS_ITS | Encounter Summary ---
Author Organization [facility] Address [address] [facility] [place] [address] Care Team Providers Care Copy Chief Name Role Phone Yoselin Jaime FERMIN Unavailable Unallocated, Noms Provider Primary Care Provi kwabena Encounter Details Date Type Department Care Team (Late st Contact Info) Description 10/10/2023 Clinisync Result Encounter [facility]OMS External Department Unsolicited Dave Ortiz, [facility] [place], [place] [address] Social History Tobacco Use Types Packs/Day Years [...] Routine [facility] BCP OB [address] [place] [phone] Dave Ortiz DO [facility] [place] [address] documented as of this encounter Procedures Procedure Name Priority Date/Time Associated Diagnosis Comments US OB GROWTH 10/10/2023 7:18 AM EDT documented in this encounter Results * US OB GROWTH (10/10/2023 7:18 AM EDT) Anatomical Region Laterality Modality Other 10/10/2023 7:18 AM EDT Narrative 10/10/2023 7:21 [place] [address] Ultrasound Report Signed Patient: ZULEIKA WADDELL MR#: [id number] : 1990 Acct:[id number] Age/Sex: 33 / F ADM Date: 10/09/23 Loc: US Attending Dr: Dave Ortiz D.O. Ordering Physician: Dave Ortiz D.O. Date of Service: 10/09/23 Procedure(s): US OB growth Accession Number(s): [id number] cc: Dave Ortiz D.O.; Jaime Waddell [place] [address] Patient Name: ZULEIKA WADDELL MRN: [id number] date: 1990 Sex: F Assigned Patient Location: [facility] Current Patient Location: US Accession/Order Number: [id number] Exam Date: 10/09/2023 15:20 Report Date: 10/10/2023 [...] M.D. Signed By: 10/10/23720 DD/ 7 TD/TT: Infectious Disease Physician: Procedure Note Radiology, Radiologist, MD - 10/10/2023 [place] [address] Ultrasound Report Signed Patient: ZULEIKA WADDELL LMR#: [id number] : 1990Acct:[id number] Age/Sex: 33 / FADM Date: 10/09/23 Loc: US Attending Dr: Dave Ortiz D.O. Ordering Physician: Dave Ortiz D.O. Date of Service: 10/09/23 Procedure(s): US OB growth Accession Number(s): [id number] cc: Dave Ortiz D.O.; Jaime Waddell [place] [address] Patient Name: ZULEIKA WADDELL MRN: [id number] date: 1990 Sex: F Assigned Patient Location: [facility] Current Patient Location: [place] Accession/Order Number: [id number] Exam Date: 10/09/2023 15:20 Report Date: 10/10/2023 [...] Dawn M.D. Signed By:10/10/23720 DD/ 7 TD/TT: Infectious Disease Physician: us Dave Diana DO [facility] Final Result documented in this encounter Visit Diagnoses Not on filedocumented in this encounter Care Teams Copy Chief Relationship Specialty Start Date End Date Unallocated, Noms Prakash, [address] [place] [address] PCP - General 03/04/23 Jaime Waddell PA [address] [place], [place] [phone] Referring Physician Physical Medicine and Rehabilitation 03/04/23 documented as of this encounter
--- OUTSIDE RECORDS SUMMARY | 2024-11-24 08:59 | XMS_ITS | Encounter Summary ---
Author Organization [facility] Address [address] [facility] [place] [address] Care Team Providers Care Communications Marketing Intern Name Role Phone Yoselin Jaime FERMIN Unavailable Unallocated, Noms Provider Primary Care Provi kwabena Encounter Details Date Type Department Care Team (Late st Contact Info) Description 11/17/2024 Abstract [facility] OB [address] [place] [address] Cuong Ortiz DO [facility] [address] [place], [place] [address] Social History Tobacco Use Types Packs/Day Years [...] Routine [facility] BCP OB [address] [place] [address] Cuong Ortiz DO [address] [place] [address] [place] [address] documented as of this encounter Goals Goal Patient Goal Type Associated Problems Recent Progress Patient-Stated? Author Reminders Care Plan OB Reminders No Open Scheduling, Background documented as of this encounter Visit Diagnoses Not on filedocumented in this encounter Additional Health Concerns Active Problems Noted Date Diagnosed Date OB Reminders 06/23/2024 documented as of this encounter Care Teams Communications Marketing Intern Relationship Specialty Start Date End Date Unallocated, Noms Provider, [address] [place] [address] PCP - General 03/04/23 Jaime Wyatt PA [address] [place] [address] Referring Physician Physical Medicine and Rehabilitation 03/04/23 documented as of this encounter
--- OUTSIDE RECORDS SUMMARY | 2024-11-24 08:59 | XMS_ITS | Encounter Summary ---
Author Organization [facility] Address [address] [facility] [place] [address] Care Team Providers Care Steward Racetrack Name Role Phone Yoselin Jaime FERMIN Unavailable Unallocated, Noms Provider Primary Care Provi kwabena Encounter Details Date Type Department Care Team (Late st Contact Info) Description 11/17/2024 Clinisync Result Encounter [facility] External Department Unsolicited Dave Ortiz, DO [address] [place] [address] Social History Tobacco Use Types Packs/Day Years [...] Description 11/30/2024 1:00 PM EDT Routine [facility] OB [address] [place] [address] Dave Ortiz, DO [address] [place] [address] (work) documented as of this encounter Goals [...] AM EDT Narrative 11/17/2024 10:19 [place] [address] Ultrasound Report Signed Patient: ZULEIKA WADDELL MR#: [id number] : 1990 Acct:[id number] Age/Sex: 34 / F ADM Date: 11/17/24 Loc: US Attending Dr: Dave Ortiz D.O. Ordering Physician: Dave Ortiz D.O. Date of Service: 11/17/24 Procedure(s): US OB BPP w non-stress Accession Number(s): [id number] cc: Dave Ortiz D.O.; Ramon Avila M.D. [address] [address] Patient Name: ZULEIKA WADDELL MRN: [id number] date: 1990 Sex: F Assigned Patient Location: [facility] Current Patient Location: Accession/Order Number: [id number] Exam Date: 11/17/2024 10:16 Report Date: 11/17/2024 [...] Mahan M.D. 11/17/2024 10:17 AM Dictation Location: [place] [address] Electronically authenticated by: [id number] Y Date: 11/17/2024 10:17 Dictated By: Adela Mahan M.D. Signed By: 11/17/24 1019 DD/ 1017 TD/TT: Plant Quality Manager: Procedure Note Radiology, Radiologist, MD - 11/17/2024 [place] [address] Ultrasound Report Signed Patient: ZULEIKA WADDELL LMR#: [id number] : 1990Acct:[id number] Age/Sex: 34 / FADM Date: 11/17/24 Loc: US Attending Dr: Dave Ortiz D.O. Ordering Physician: Dave Ortiz D.O. Date of Service: 11/17/24 Procedure(s): US OB BPP w non-stress Accession Number(s): [id number] cc: Dave Ortiz D.O.; Ramon Avila M.D. The [place] [address] Patient Name: ZULEIKA WADDELL MRN: [facility]:[id number] date: 1990 Sex: F Assigned Patient Location: [facility] Current Patient Location: Accession/Order Number: [id number] Exam Date: 11/17/2024 10:16 Report Date: 11/17/2024 [...] Mahan M.D. 11/17/2024 10:17 AM Dictation Location: [place] [address] Electronically authenticated by: [id number] Y Date: 0:17 Dictated By: Adela Mahan M.D. Signed By:11/17/24 1019 DD/ 1017 TD/TT: Plant Quality Manager: us Dave Ortiz DO [facility] Final Result documented in this encounter Visit Diagnoses Not on filedocumented in this encounter Additional Health Concerns Active Problems Noted Date Diagnosed Date OB Reminders 06/23/2024 documented as of this encounter Care Teams Steward Racetrack Relationship Specialty Start Date End Date Unallocated, Noms Provider, [address] [place] [address] PCP - General 03/04/23 Jaime Waddell PA [address] [place] [address] Referring Physician Physical Medicine and Rehabilitation 03/04/23 documented as of this encounter
--- OUTSIDE RECORDS SUMMARY | 2024-11-24 08:59 | XMS_ITS | Encounter Summary ---
Author Organization [facility] Address [address] [facility] [place] [address] Care Team Providers Care Applications Administrator Name Role Phone Jaime Wyatt PA Unavailable Unallocated, Noms Provider Primary Care Provi kwabena Encounter Details Date Type Department Care Team (Late st Contact Info) Description 11/12/2024 Patient Outreach [facility] [address] [place] [address] Elena Felix LPN Social History Tobacco Use [...] PM EDT Routine [facility] BCP OB [address] [facility] [place] [address] Cuong Ortiz, [address] [place] [address] documented as of this encounter Goals Goal Patient Goal Type Associated Problems Recent Progress Patient-Stated? Author Reminders Care Plan OB Reminders No Open Scheduling, Background documented as of this encounter Visit Diagnoses Not on filedocumented in this encounter Additional Health Concerns Active Problems Noted Date Diagnosed Date OB Reminders 06/23/2024 documented as of this encounter Care Teams Applications Administrator Relationship Specialty Start Date End Date Unallocated, Noms Provider, [address] [place], [place] [address] PCP - General 03/04/23 Jaime Wyatt PA [address] [place] [address] Referring Physician Physical Medicine and Rehabilitation 03/04/23 documented as of this encounter
--- OUTSIDE RECORDS SUMMARY | 2024-11-24 08:59 | XMS_ITS | Encounter Summary ---
Author Organization [facility] Address [id number] [address] 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 Procedures US [facility] with or without consult Dave Ortiz DO Phone: tel: fax: Maternal- Medicine at [address] [address] Phone: tel: fax: Referral ID Status Reason Start Date Expiration Date V isits Requested Visits Authorized [id number] Pending Review 08/27/2024 08/27/2025 1 1 Encounter Details Date Type Department Care Team (Late st Contact Info) Description 08/27/2024 Orders Only Maternal- Medicine at [address] [address] Beronica Minaya CMA History of [...] 2:35 PM EDT) Anatomical Region Laterality Modality OB-VICE PRESIDENT CLIENT SERVICES Ultrasound 08/27/2024 1:30 PM EDT Narrative 08/27/2024 5:23 PM EDT NAME: BAIRON TO : 1990 SEX: F Accession Number: [id number] ORDERING PHYSICIAN: DAVE ORTIZ REFERRING PHYSICIAN: DAVE ORTIZ Coding ----- --------- Procedures 68996: Ultrasound, uterus, real time with image documentation, and maternal evaluation plus detailed anatomic examination, transabdominal approach;single or first gestation 84397: Transvaginal Ultrasound (OB) Indication ----- --------- Screening for Anatomic Survey , Screening for cervical length , Chronic hypertension affecting , History of prior with delivery, Supervision of high risk - MOB alcohol syndrome, 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 Para 4 [id number] Current ----- --------- Cell free DNA Low [...] 1 lb 0 oz EFW by Hadlock ([id number]-[id number]-NU-FL) Head / Face / Neck Biometry: Cephalic index 0.70 <1% Nicolaides Emergency Worker 6.1 mm CM 9.9 mm >99% Nicolaides [...] Head / Neck Neck. Heart / Thorax 5-qswfog-rtqbsca view. Extremities / Right hand. 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 Para 4 [id number] Current ----- --------- Cell free DNA Low [...] 1 lb 0 oz EFW by Hadlock (ZSE-WY-UE-FL) Head / Face / Neck Biometry: Cephalic index 0.70 <1% Nicolaides Emergency Worker 6.1 mm CM 9.9 mm >99% Nicolaides [...] Head / Neck Neck. Heart / Thorax 2-uczhes-hhqqtse view. Extremities / Right hand. Skeleton Maternal [...] 1.01 cm. Recommendations ----- --------- Please see [facility] documentation from today. The patient is scheduled in four to six week(s) to complete anatomicsurvey. Subsequent follow up or other follow up as clinically determined byprimary OB provider unless otherwise specified by [facility]. Results forwarded to ordering provider so [...] documented as of this encounter Care Teams Sand Technologist Relationship Specialty Start Date End Date Jaime Wyatt, SADAF [address] [place], [place] [phone] PCP - General Physician Jewel Gauger 03/18/18 documented as of this encounter
--- OUTSIDE RECORDS SUMMARY | 2024-11-24 08:59 | XMS_ITS | Encounter Summary ---
Author Organization [facility] Address [address] [facility] [place] [address] Care Team Providers Care Flight Operations Coordinator Name Role Phone WyattJaime FERMIN Unavailable Unallocated, Noms Provider Primary Care Provi kwabena Encounter Details Date Type Department Care Team (Late st Contact Info) Description 09/29/2024 Orders Only [facility] OB [address] [employer] [place] [address] Destinee Vazquez LPN [address] [facility] Derek [place] [address] Social History Tobacco Use Types Packs/Day Years [...] PM EDT Routine [facility] BCP OB [address] [place] [address] Cuong Ortiz, DO [address] [place] [address] documented as of this encounter Goals Goal [...] documented as of this encounter Care Teams Flight Operations Coordinator Relationship Specialty Start Date End Date Unallocated, Noms Provider, [address] [place] [address] PCP - General 03/04/23 Jaime Wyatt PA [address] [place], [place] [address] Referring Physician Physical Medicine and Rehabilitation 03/04/23 documented as of this encounter
--- OUTSIDE RECORDS SUMMARY | 2024-11-24 08:59 | XMS_ITS | Encounter Summary ---
Author Organization [facility] Address [address] [facility] [place] [address] Care Team Providers Care Dining Service Supervisor Name Role Phone Yoselin Jaime FERMIN Unavailable Unallocated, Noms Provider Primary Care Provi kwabena Encounter Details Date Type Department Care Team (Late st Contact Info) Description 10/21/2023 Clinisync Result Encounter [facility]S External Department Unsolicited Dave Ortiz, [facility] [place], [place] [address] Social History Tobacco Use Types Packs/Day Years [...] [facility] BCP OB [address] [place] [address] Dave Ortiz DO [facility] [place] [address] documented as of this encounter Procedures Procedure Name Priority Date/Time Associated Diagnosis Comments US OB BPP W NON-STRESS 10/21/2023 7:34 AM EDT documented in this encounter Results * US OB BPP W NON-STRESS (10/21/2023 7:34 AM EDT) Anatomical Region Laterality Modality Other 10/21/2023 7:34 AM EDT Narrative 10/21/2023 7:37 [place] [address] Ultrasound Report Signed Patient: ZULEIKA WADDELL MR#: [id number] : 1990 Acct:[id number] Age/Sex: 33 / F ADM Date: 10/19/23 Loc: [facility] Attending Dr: Dave Ortiz D.O. Ordering Physician: Dave Ortiz D.O. Date of Service: 10/19/23 Procedure(s): US OB BPP w non-stress Accession Number(s): [id number] cc: Dave Ortiz D.O.; Jaime Waddell [place] [address] Patient Name: ZULEIKA WADDELL MRN: [facility]:[id number] date: 1990 Sex: F Assigned Patient Location: [facility] Current Patient Location: [facility] Accession/Order Number: [id number] Exam Date: 10/19/2023 14:53 Report Date: 10/21/2023 [...] M.D. Signed By: 0537 DD/ 3 TD/TT: Stem Roller: Procedure Note Radiology, Radiologist, - 10/21/2023 The [place] [id number] Ultrasound Report Signed Patient: ZULEIKA WADDELL LMR#: [id number] : 1990Acct:[id number] Age/Sex: 33 / FADM Date: 10/19/23 Loc: [facility] Attending Dr: Dave Ortiz D.O. Ordering Physician: Dave Ortiz D.O. Date of Service: 10/19/23 Procedure(s): US OB BPP w non-stress Accession Number(s): [id number] cc: Dave Ortiz D.O.; Jaime Waddell [place] [id number] Patient Name: ZULEIKA WADDELL MRN: [facility]:[id number] date: 1990 Sex: F Assigned Patient Location: [facility] Current Patient Location: [facility] Accession/Order Number: [id number] Exam Date: 10/19/2023 14:53 Report Date: 10/21/2023 [...] M.D. Signed By:10/21/23 0737 DD/ 3 TD/TT: Stem Roller: us Dave Ortiz DO [facility] Final Result documented in this encounter Visit Diagnoses Not on filedocumented in this encounter Care Teams Dining Service Supervisor Relationship Specialty Start Date End Date Unallocated, Noms Provider, [address] [place] [address] PCP - General 03/04/23 Jaime Waddell PA [address] [place], [place] [phone] Referring Physician Physical Medicine and Rehabilitation 03/04/23 documented as of this encounter
--- OUTSIDE RECORDS SUMMARY | 2024-11-24 08:59 | XMS_ITS | Encounter Summary ---
Author Organization [facility] Address [address] [facility] [place] [address] Care Team Providers Care Conference Planner Name Role Phone YoselinJaime FERMIN Unavailable Unallocated, Noms Provider Primary Care Provi kwabena Encounter Details Date Type Department Care Team (Late st Contact Info) Description 11/10/2024 Clinisync Result Encounter [facility] External Department Unsolicited Dave Ortiz, DO [address] [place] [address] Social History Tobacco Use Types Packs/Day Years [...] Description 11/30/2024 1:00 PM EDT Routine [facility] OB [address] [place] [address] Dave Ortiz, DO [address] [place] [address] (work) documented as of this encounter Goals [...] AM EDT Narrative 11/10/2024 10:11 [place] [address] Ultrasound Report Signed Patient: ZULEIKA WADDELL MR#: [id number] : 1990 Acct:[id number] Age/Sex: 34 / F ADM Date: 11/10/24 Loc: US Attending Dr: Dave Ortiz D.O. Ordering Physician: Dave Ortiz D.O. Date of Service: 11/10/24 Procedure(s): US OB BPP w non-stress Accession Number(s): [id number] cc: Dave Ortiz D.O.; Ramon Avila M.D. [address] [address] Patient Name: ZULEIKA WADDELL MRN: [id number] date: 1990 Sex: F Assigned Patient Location: [facility] Current Patient Location: Accession/Order Number: [id number] Exam Date: 11/10/2024 10:07 Report Date: 11/10/2024 10:08 At the request of: DAVE ORTIZ DO Procedure: US OB BPP w non-stress BIOPHYSICAL PROFILE: CLINICAL INFORMATION: Christiano cisterna magna Q04.9 Comparison: 11/06/2024 There is a single live intrauterine gestation in cephalic presentation. The reported gestational age is 33 weeks 0 days. The heart rate zrhneyze881 beats per minute. FINDINGS: TONE: 1 or [...] Mahan M.D. 11/10/2024 10:08 AM Dictation Location: [place] [address] Electronically authenticated by: [id number] Y Date: 11/10/2024 10:08 Dictated By: Adela Mahan M.D. Signed By: 11/10/24 1011 DD/ 1008 TD/TT: Concrete Mixer Loader Truck Mounted: Procedure Note Radiology, Radiologist, MD - 11/10/2024 [place] [address] Ultrasound Report Signed Patient: ZULEIKA WADDELL LMR#: [id number] : 1990Acct:[id number] Age/Sex: 34 / FADM Date: 11/10/24 Loc: US Attending Dr: Dave Ortiz D.O. Ordering Physician: Dave Ortiz D.O. Date of Service: 11/10/24 Procedure(s): US OB BPP w non-stress Accession Number(s): [id number] cc: Dave Ortiz D.O.; Ramon Avila M.D. 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 The heart egwqarappscy275 beats per minute. FINDINGS: TONE: 1 or [...] Mahan M.D. 11/10/2024 10:08 AM Dictation Location: [place] [address] Electronically authenticated by: [id number] Y Date: 0:08 Dictated By: Adela Mahan M.D. Signed By:11/10/24 1011 DD/ 1008 TD/TT: Concrete Mixer Loader Truck Mounted: Dave Ortiz DO [facility] Final Result documented in this encounter Visit Diagnoses Not on filedocumented in this encounter Additional Health Concerns Active Problems Noted Date Diagnosed Date OB Reminders 06/23/2024 documented as of this encounter Care Teams Conference Planner Relationship Specialty Start Date End Date Unallocated, Noms Provider, [address] [place] [address] PCP - General 03/04/23 Jaime Waddell PA [address] [place], [place] [phone] Referring Physician Physical Medicine and Rehabilitation 03/04/23 documented as of this encounter
--- OUTSIDE RECORDS SUMMARY | 2024-11-24 08:59 | XMS_ITS | Encounter Summary ---
Author Organization [facility] Address [address] [facility] [place] [address] Care Team Providers Care Business Process Modeler Name Role Phone Jaime Wyatt [place] Unavailable Unallocated, Noms Provider Primary Care Provi kwabena Encounter Details Date Type Department Care Team (Late st Contact Info) Description 12/19/[address] [facility] [address] [facility] [address] [place] [phone] Arden Orozco, DO [address] [facility] [address] [place] [address] Social History Tobacco Use Types [...] [address] Cuong Ortiz DO [address] [place] [address] documented as of this encounter Visit Diagnoses Not on filedocumented in this encounter Care Teams Business Process Modeler Relationship Specialty Start Date End Date Unallocated, Noms Provider, [place] [address] [address] PCP - General 03/04/23 Jaime Wyatt PA [address] [place] [address] Referring Physician Physical Medicine and Rehabilitation 03/04/23 documented as of this encounter
--- OUTSIDE RECORDS SUMMARY | 2024-11-24 08:59 | XMS_ITS ---
Author Organization [facility] Source Produ ction (ClinicalSummary Clone) Address Unknown Care Team Providers Care Thickener Operator Name Role Phone Unavailable Primary Care Physician Unavailab le Results * [UNITY] ANEUPLOIDY NIPT Performed by: Nonpareil. Component Value Range Date Fraction 7.1% 06/30/2024 [...] 04:53 am UTC 06/30/2024 04:5 3 am [facility] Social History Observation Value Start Date End Date
--- OUTSIDE RECORDS SUMMARY | 2024-11-24 08:59 | XMS_ITS | Encounter Summary ---
Author Organization [employer] s tem Address [id number] [address] [place] [address] Care Team Providers Care Market Sales Manager Name Role Phone Jaime Wyatt PA-C [...] documented as of this encounter Care Teams Market Sales Manager Relationship Specialty Start Date End Date Jaime Wyatt PA-C [address] [place] [address] PCP - General Physician Greeting Card Maker 03/18/18 documented as of this encounter
--- OUTSIDE RECORDS SUMMARY | 2024-11-24 08:59 | XMS_ITS | Encounter Summary ---
Author Organization [facility] Address [address] [facility] [place] [address] Care Team Providers Care Transition Manager Name Role Phone Yoselin Jaime FERMIN Unavailable Unallocated, Noms Provider Primary Care Provi kwabena Encounter Details Date Type Department Care Team (Late st Contact Info) Description 10/10/2023 Clinisync Result Encounter [facility] External Department Unsolicited Dave Ortiz, [facility] [place], [place] [address] Social History Tobacco Use Types Packs/Day Years [...] Routine [facility] B[facility] OB [address] [place] [address] Dave Ortiz [place] [facility] [place] [address] documented as of this encounter Procedures Procedure Name Priority Date/Time Associated Diagnosis Comments US OB BPP W NON-STRESS 10/10/2023 7:13 AM EDT documented in this encounter Results * US OB BPP W NON-STRESS (10/10/2023 7:13 AM EDT) Anatomical Region Laterality Modality Other 10/10/2023 7:13 AM EDT Narrative 10/10/2023 7:15 [place] [address] Ultrasound Report Signed Patient: ZULEIKA WADDELL MR#: [id number] : 1990 Acct:[id number] Age/Sex: 33 / F ADM Date: 10/09/23 Loc: US Attending Dr: Dave Ortiz D.O. Ordering Physician: Dave Ortiz D.O. Date of Service: 10/09/23 Procedure(s): US OB BPP w non-stress Accession Number(s): [id number] cc: Dave Ortiz D.O.; Jaime Waddell [place] [address] Patient Name: ZULEIKA WADDELL MRN: [id number] date: 1990 Sex: F Assigned Patient Location: US Current Patient Location: US Accession/Order Number: [id number] Exam Date: 10/09/2023 15:20 Report Date: 10/10/2023 [...] M.D. Signed By: 04/714 DD/ 2 TD/TT: Statistical Machine Servicer: Procedure Note Radiology, Radiologist, - 10/10/2023 [place] [address] Ultrasound Report Signed Patient: ZULEIKA WADDELL LMR#: [id number] : 1990Acct:[id number] Age/Sex: 33 / FADM Date: 10/09/23 Loc: US Attending Dr: Dave Ortiz D.O. Ordering Physician: Dave Ortiz D.O. Date of Service: 10/09/23 Procedure(s): US OB BPP w non-stress Accession Number(s): [id number] cc: Dave Ortiz D.O.; Jaime Waddell The [place] [id number] Patient Name: ZULEIKA WADDELL MRN: [id number] date: 1990 Sex: F Assigned Patient Location: US Current Patient Location: US Accession/Order Number: [id number] Exam Date: 10/09/2023 15:20 Report Date: 10/10/2023 [...] Dawn M.D. Signed By:10/10/23714 DD/ 2 TD/TT: Statistical Machine Servicer: us Dave Ortiz DO [facility] Final Result documented in this encounter Visit Diagnoses Not on filedocumented in this encounter Care Teams Transition Manager Relationship Specialty Start Date End Date Unallocated, Noms Provider, [address] [place] [address] PCP - General 03/04/23 Jaime Waddell PA [address] [place] [address] Referring Physician Physical Medicine and Rehabilitation 03/04/23 documented as of this encounter
--- OUTSIDE RECORDS SUMMARY | 2024-11-24 08:59 | XMS_ITS | Encounter Summary ---
Author Organization [facility] Address [address] [facility] [place] [address] Care Team Providers Care Shop And Alteration Tailor Name Role Phone Yoselin Jaime FERMIN Unavailable Unallocated, Noms Provider Primary Care Provi kwabena Encounter Details Date Type Department Care Team (Late st Contact Info) Description 10/24/2023 Clinisync Result Encounter [facility] External Department Unsolicited Dave Ortiz, [facility] [place], [place] [address] Social History Tobacco Use Types Packs/Day Years [...] Routine [facility] BCP OB [address] [place] [address] Dave Ortiz DO [facility] [place] [address] documented as of this encounter Procedures Procedure Name Priority Date/Time Associated Diagnosis Comments US OB BPP W NON-STRESS 10/24/2023 7:37 AM EDT documented in this encounter Results * US OB BPP W NON-STRESS (10/24/2023 7:37 AM EDT) Anatomical Region Laterality Modality Other 10/24/2023 7:37 AM EDT Narrative 10/24/2023 7:40 [place] [address] Ultrasound Report Signed Patient: ZULEIKA WADDELL MR#: [id number] : 1990 Acct:[id number] Age/Sex: 33 / F ADM Date: 10/23/23 Loc: US Attending Dr: Dave Ortiz D.O. Ordering Physician: Dave Ortiz D.O. Date of Service: 10/23/23 Procedure(s): US OB BPP w non-stress Accession Number(s): [id number] cc: Dave Ortiz D.O.; Jaime Waddell [place] [address] Patient Name: ZULEIKA WADDELL MRN: [id number] date: 1990 Sex: F Assigned Patient Location: US Current Patient Location: Accession/Order Number: [id number] Exam Date: 10/23/2023 15:25 Report Date: 10/24/2023 [...] M.D. Signed By: 10/24/23739 DD/ 6 TD/TT: Head Bucker: Procedure Note Radiology, Radiologist, - 10/24/2023 [place] [address] Ultrasound Report Signed Patient: ZULEIKA WADDELL LMR#: [id number] : 1990Acct:[id number] Age/Sex: 33 / FADM Date: 10/23/23 Loc: US Attending Dr: Dave Ortiz D.O. Ordering Physician: Dave Ortiz D.O. Date of Service: 10/23/23 Procedure(s): US OB BPP w non-stress Accession Number(s): [id number] cc: Dave Ortiz D.O.; Jaime Waddell [place] [id number] Patient Name: ZULEIKA WADDELL MRN: [facility]:[id number] date: 1990 Sex: F Assigned Patient Location: US Current Patient Location: US Accession/Order Number: [id number] Exam Date: 10/23/2023 15:25 Report Date: 10/24/2023 [...] Dawn M.D. Signed By:10/24/2340 DD/ 6 TD/TT: Head Bucker: us Dave Ortiz DO [facility] Final Result documented in this encounter Visit Diagnoses Not on filedocumented in this encounter Care Teams Shop And Alteration Tailor Relationship Specialty Start Date End Date Unallocated, Noms Provider, [address] [place], [place] [address] PCP - General 03/04/23 Jaime Waddell PA [address] [place] [address] Referring Physician Physical Medicine and Rehabilitation 03/04/23 documented as of this encounter
--- OUTSIDE RECORDS SUMMARY | 2024-11-24 08:59 | XMS_ITS | Clinical Summary ---
Author Organization [facility] Address [address] [place] [address] Care Team Providers Care Automobile Mechanic Assistant Name Role Phone Unavailable Primary Care Provider [...] Billing Address Personal/Family Self 1990 na (Home) [address] [place] [address] [place] [employer] [place]
--- OUTSIDE RECORDS SUMMARY | 2024-11-24 08:59 | XMS_ITS | Encounter Summary ---
Author Organization [facility] Address [address] [facility] [place] [address] Care Team Providers Care Pediatric Assistant Name Role Phone Yoselin Jaime FERMIN Unavailable Unallocated, Noms Provider Primary Care Provi kwabena Encounter Details Date Type Department Care Team (Late st Contact Info) Description 09/29/2024 Abstract [facility] OB [address] [place] [address] Cuong Ortiz DO [facility] [place], [place] [address] Social History Tobacco Use Types Packs/Day Years [...] [place] [address] Cuong Ortiz DO [address] [place] [address] [place] [address] documented as of this encounter Goals Goal Patient Goal Type Associated Problems Recent Progress Patient-Stated? Author Reminders Care Plan OB Reminders No Open Scheduling, Background documented as of this encounter Visit Diagnoses Not on filedocumented in this encounter Additional Health Concerns Active Problems Noted Date Diagnosed Date OB Reminders 06/23/2024 documented as of this encounter Care Teams Pediatric Assistant Relationship Specialty Start Date End Date Unallocated, Noms Provider, [address] [place] [address] PCP - General 03/04/23 Jaime Wyatt PA [address] [place] [address] Referring Physician Physical Medicine and Rehabilitation 03/04/23 documented as of this encounter
--- OUTSIDE RECORDS SUMMARY | 2024-11-24 08:59 | XMS_ITS | Encounter Summary ---
Author Organization [facility] Address [address] [facility] [place] [address] Care Team Providers Care Reconnaissance Crewmember Name Role Phone YoselinJaime FERMIN Unavailable Unallocated, Noms Provider Primary Care Provi kwabena Encounter Details Date Type Department Care Team (Late st Contact Info) Description 04/26/2023 Clinisync Result Encounter [facility] External Department Unsolicited Dave Ortiz, DO [address] [place] [address] Social History Tobacco Use Types Packs/Day Years [...] [facility] BCP OB [address] [place] [address] Dave Ortiz DO [address] [place] [address] documented as of this encounter Procedures Procedure Name Priority Date/Time Associated Diagnosis Comments US OB TRANSVAGINAL 04/26/2023 8: 15 PM EST documented in this encounter Results * US OB TRANSVAGINAL (04/26/2023 8:15 PM EST) Anatomical Region Laterality Modality Other 04/26/2023 8:15 PM EST Narrative 04/26/2023 8:15 PM EST [address] [address] Ultrasound Report Signed Patient: ZULEIKA WADDELL MR#: [id number] : 1990 Acct:[id number] Age/Sex: 33 / F ADM Date: 04/26/23 Loc: US Attending Dr: Dave Ortiz D.O. Ordering Physician: Dave Ortiz D.O. Date of Service: 04/26/23 Procedure(s): US OB transvaginal Accession Number(s): [id number] cc: Dave Ortiz D.O.; Physician,Non-Staff Didi The [address] [address] Patient Name: ZULEIKA WADDELL MRN: [id number] date: 1990 Sex: F Assigned Patient Location: US Current Patient Location: US Accession/Order Number: [id number] Exam Date: 04/26/2023 09:40 Report Date: 04/26/2023 20:15 At the request of: DAVE ORTZI Procedure: US OB transvaginal EXAMINATION: US OB [...] M.D. Signed By: 04/26/232017 DD/ 14 TD/TT: Ground Transportation Operator: Procedure Note Radiology, Radiologist, MD - 04/26/2023 [place] [address] Ultrasound Report Signed Patient: ZULEIKA WADDELL LMR#: [id number] : 1990Acct:[id number] Age/Sex: 33 / FADM Date: 04/26/23 Loc: US Attending Dr: Dave Ortiz D.O. Ordering Physician: Dave Ortiz D.O. Date of Service: 04/26/23 Procedure(s): US OB transvaginal Accession Number(s): [id number] cc: Dave Ortiz D.O.; Physician,Non-Staff Didi The [place] [address] Patient Name: ZULEIKA WADDELL MRN: [id number] date: 1990 Sex: F Assigned Patient Location: US Current Patient Location: US Accession/Order Number: [id number] Exam Date: 04/26/2023 09:40 Report Date: 04/26/2023 [...] Dawn M.D. Signed By:04/26/232017 DD/ 14 TD/TT: Ground Transportation Operator: us Dave Ortiz DO [facility] Final Result documented in this encounter Visit Diagnoses Not on filedocumented in this encounter Care Teams Reconnaissance Crewmember Relationship Specialty Start Date End Date Unallocated, Noms Provider, [address] [place] [address] PCP - General 03/04/23 Jaime Waddell PA [address] [place], [place] [phone] Referring Physician Physical Medicine and Rehabilitation 03/04/23 documented as of this encounter
--- OUTSIDE RECORDS SUMMARY | 2024-11-24 08:59 | XMS_ITS | Clinical Summary ---
Author Organization [facility] tem Address [id number] [address] 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 (Primary Dx); Christiano cisterna magna (CMS-HCC) - 11/16/2024 12:43 PM EDT - 11/16/2024 11:59 PM EDT Hospital Encounter [facility] - [facility] US Imaging [address] [place] [address] Supervision of high risk , antepartum Discharge Disposition: Home 11/16/2024 Travel 09/28/2024 2:00 PM EDT Office Visit Maternal- Medicine at [facility] [address] [place] [address] Trav Macdonald MD Christiano cisterna magna (CMS-HCC) - (Primary Dx); Nodular heterotopia (CMS-HCC) - ; 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 , 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 09/28/2024 12:43 PM EDT - 09/28/2024 11:59 PM EDT Hospital Encounter [facility] - [facility] US Imaging [address] [place] [address] 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 , 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; Family history of genetic disorder; Fetus with trisomy 13, single gestation; CM (congenital malformation); Suspected anomaly, antepartum, single or unspecified fetus Discharge Disposition: Home 09/28/2024 Travel 08/27/2024 2:30 PM EDT Telemedicine Maternal Medicine [place] [address] [address] Alyson Packer MD Suspected anomaly, antepartum, single or unspecified fetus (Primary Dx); 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 , 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; Family history of genetic disorder; Fetus with trisomy 13, single gestation; CM (congenital malformation) 08/27/2024 Travel 08/27/2024 Abstract Maternal- Medicine at [facility] [address] [place] [address] External, Scanning Provider 08/27/2024 Orders Only Maternal- Medicine at [facility] [address] [place] [address] Beronica Minaya, HOTBED TRANSFER OPERATOR 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 , [...] Name Priority Date/Time Associated Diagnosis Comments [facility] OB FOLLOW-UP, 1 FETUS Routine 11/16/2024 3:01 PM EDT Supervision of high risk , antepartum US [facility] OB FOLLOW-UP, 1 FETUS Routine 09/28/2024 [...] period is included. Anatomical Region Laterality Modality OB-MORTGAGE ORIGINATOR Ultrasound 11/16/2024 1:48 PM EDT Narrative 11/16/2024 3:25 PM EDT NAME: YOSELIN TO : 1990 SEX: F Accession Number: [id number] ORDERING PHYSICIAN: TRAV MACDONALD REFERRING PHYSICIAN: DAVE CUELLAR Coding ----- --------- Procedures 47403: Follow-up Ultrasound, per fetus [address]679: Echocardiography, , cardiovascular system, real time with [...] ----- --------- OB History 7. Para 4 [id number] Current ----- --------- Cell free DNA Low [...] EFW (oz) 14 oz EFW by: Hadlock (JDS-WJ-BO-FL) Extended Tibia 58.9 mm 34w 3d 81% Gurdeep Speech Therapy Teacher 6.0 mm CM 14.6 mm Head / [...] Cerebellum. Face: Lips. Nose. Heart/Thorax: 4-chamber view. 7-wljrab-lyavaba view. Great vessels. Diaphragm. Abdomen: Stomach. Kidneys. [...] view documented previously 3-vessel view documented previously 6-tmytuk-hotvvss view normal Aortic arch view documented previously [...] TO : 1990 SEX: F Accession Number: [id number] ORDERING PHYSICIAN: TRAV MACDONALD REFERRING PHYSICIAN: DAVE CUELLAR Coding ----- --------- Procedures 89568: Follow-up Ultrasound, per fetus [address]: Echocardiography, , cardiovascular system, real timewith image documentation (2D), with or without M-mode recording; follow-up or repeat study Indication ----- --------- Screening for follow-up survey, Chronic hypertension affecting ,History of prior with delivery, Supervision of high risk - MOB alcohol syndrome, T13 inprev , MOB club foot, christiano cisterna magna, 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 Para 4 [id number] Current ----- --------- Cell free DNA Low [...] EFW (oz) 14 oz EFW by: Hadlock (HCE-LI-LA-FL) Extended Tibia 58.9 mm 34w 3d 81% Gurdeep Speech Therapy Teacher 6.0 mm CM 14.6 mm Head / [...] Cerebellum. Face: Lips. Nose. Heart/Thorax: 4-chamber view. 2-coziou-npcccqe view. Great vessels. Diaphragm. Abdomen: Stomach. Kidneys. [...] view documented previously 3-vessel view documented previously 1-hjqplu-qygbzcq view normal Aortic arch view documented previously [...] of Phone Billing Address Personal/Family Self 1990 [address] [place] [address] [employer] Care Teams Circulation Assistant Relationship Specialty Start Date End Date Jaime Wyatt PA-C [address] [place] [phone] PCP - General Physician Decision Science Analyst 03/18/18
--- OUTSIDE RECORDS SUMMARY | 2024-11-24 08:59 | XMS_ITS | Encounter Summary ---
Author Organization [facility] tem Address [id number] [address] 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
[2024-11-24 09:22] VITALS: BP 115/69; PULSE 94
== END 2024-11-24 09:54 | disposition home or self-care (01) ==
LOC: US 08:56 → FBC 08:58
PROVIDERS: PCP Family Medicine; Visit Provider Obstetrics & Gynecology
DX: O26.893 Other specified pregnancy related conditions, third trimester (principal); Z3A.35 35 weeks gestation of pregnancy; Q04.9 Congenital malformation of brain, unspecified
CPT/HCPCS: 76818

== ENCOUNTER 2024-11-26 10:34 | Observation (INO) | payer MEDICAID, SELFPAY ==
--- OUTSIDE RECORDS SUMMARY | 2024-11-16 12:43 | XMS_ITS | Encounter Summary ---
Author Organization [facility] Address [id number] [address] [place] [address] Care Team Providers Care Bow Maker Production Name Role Phone Jaime Wyatt PA-C Primary Care Provider + [phone] Reason for Visit * Diagnostic Imaging (Routine) - Pending Review Specialty Diagnoses / Procedures Referred By Sole t Referred To Contact Maternal and Medicine Diagnoses Supervision of high risk , antepartum Procedures US MFM with or without consult US MFM with or without consult Trav Macdonald MD [address], [address] [place] [address] Phone: tel: fax: Maternal- Medicine at [facility] [address] [place] [address] Phone: tel: fax: Referral ID Status Reason Start Date Expiration Date V isits Requested Visits Authorized [id number] Pending Review 11/16/2024 11/16/2025 1 1 Encounter Details Date Type Department Care Team (Latest Contact Info) Description 11/16/2024 12:43 PM EDT - 11/16/2024 11:59 PM EDT Hospital Encounter [facility] - MFM US Imaging [address] [place] [phone] Supervision of high risk , antepartum Discharge Disposition: Home Social History Tobacco Use Types Packs/Day Years [...] got money to buy more. Never True 11/16/2024 Within the past 12 months th e food we bought just didn't last and we didn't have money to get more. Never True 11/16/2024 Purpose - Life Answer Date Recorded Purpose and direction in life Unknown Estimated Date of Delivery Comme nts Yes 12/29/2024 Based on last me nstrual period of 03/24/2024 Sex and Gender Information Value Date Recorded Sex Assigned at Not on file Legal Sex Female 11:46 AM EDT Gender Identity Not on file Sexual Orientation Not on file documented as of this encounter Medications at Time of Discharge fluconazole (DIFLUCAN) 10 mg/mL suspension 08/06/2022 ondansetron ODT (ZOFRAN ODT) 4 mg disintegrating tablet Dissolve 1 tablet (4 mg total) on tongue every 8 (eight) hours as needed for nausea or vomiting. 25/iron fum/folic/dha (-1 ORAL) Take 1 capsule by mouth in the morning. documented as of this encounter Plan of Treatment Not on file documented as of this encounter Procedures Procedure Name Priority Date/Time Associated Diagnosis Comments [facility] OB FOLLOW-UP, 1 FETUS Routine 11/16/2024 3:01 PM EDT Supervision of high risk , antepartum documented in this encounter Results * [facility] OB FOLLOW-UP, 1 FETUS (11/16/2024 3:01 PM EDT) Anatomical Region Laterality Modality OB-STAINED GLASS WINDOW DESIGNER Ultrasound 11/16/2024 1:48 PM EDT Narrative 11/16/2024 3:25 PM EDT NAME: BAIRON TO : 1990 SEX: F Accession Number: [id number] ORDERING PHYSICIAN: TRAV MACDONALD REFERRING PHYSICIAN: DAVE CUELLAR Coding ----- --------- Procedures 66212: Follow-up Ultrasound, per fetus [address]: Echocardiography, , cardiovascular system, real time with image documentation (2D), with or without M-mode recording; follow-up or repeat study Indication ----- --------- Screening for follow-up survey, Chronic hypertension affecting , History of prior with delivery, Supervision of high risk - MOB alcohol syndrome, 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 Para 4 [id number] Current ----- --------- Cell free DNA Low Risk analysis Maternal Assessment ----- --------- Physical Exam Height 165 cm, 5 ft 5 in. Weight 78 kg, 173 lb. Initial weight 78 kg, 173 lb. BMI 28.79 kg/m . Initial BMI 28.79 kg/m . Weight gain 0 kg, 0 lb Method ----- --------- Transabdominal and transvaginal ultrasound examination ----- --------- Briscoe . Number of fetuses: 1 Dating ----- --------- LMP on: 03/24/2024 GA by LMP 33 w + 6 d HUGO by LMP: 12/29/2024 Ultrasound examination on: 11/16/2024 GA by U/S based upon: AC, BPD, Femur, HC GA by U/S 33 w + 0 d HUGO by U/S: 01/04/2025 Assigned: based on the LMP, selected on 08/27/2024 Assigned GA 33 w + 6 d Assigned HUGO: 12/29/2024 General Evaluation ----- --------- Cardiac activity Present. FHR 125 bpm. Presentation: cephalic Placenta: Placental site: anterior, away from cervical os Umbilical cord: Cord vessels: 3 vessel cord. Insertion site: documented previously Amniotic fluid: Amount of AF: normal amount. MVP 4.7 cm Biometry ----- --------- Standard BPD 78.3 mm 31w 3d 2% Hadlock OFD 108.8 mm 36w 0d 89% Gurdeep HC 300.6 mm 33w 2d 8% Hadlock Cerebellum tr 40.1 mm 32w 1d 10% Hill AC 302.1 mm 34w 1d 63% Hadlock Femur 64.0 mm 33w 0d 20% Hadlock Humerus 58.0 mm 33w 4d 55% Gurdeep HC / AC 1.00 EFW 2,210 g 33% Hadlock EFW (lb) 4 lb EFW (oz) 14 oz EFW by: Hadlock ([id number]) Extended Tibia 58.9 mm 34w 3d 81% Gurdeep District Sales Coordinator 6.0 mm CM 14.6 mm Head / Face / Neck Cephalic index 0.72 <1% Nicolaides Nasal bone: documented previously Extremities / Bony Struc FL / BPD 0.82 FL / HC 0.21 FL / AC 0.21 Other Structures FHR 125 bpm Anatomy ----- --------- The following structures appear abnormal: Head/Neck: Cisterna magna. The following structures appear normal: Head / Neck Cranium. Lateral ventricles. Choroid plexus. Cavum septi pellucidi. Cerebellum. Face: Lips. Nose. Heart/Thorax: 4-chamber view. 1-iegkjt-zlswdgn view. Great vessels. Diaphragm. Abdomen: Stomach. Kidneys. Bladder. Small bowel. Large bowel. The following structures were documented previously: Head / Neck Midline falx. Parenchyma. Vermis. Neck. Face Profile. Nasal bone. Maxilla. Mandible. Orbits. Heart / Thorax RVOT view. LVOT view. 3-vessel view. Right lung. Left lung. Abdomen Abdom. wall. Cord insertion. Right renal artery. Left renal artery. Genitals. Spine: Cervical spine. Thoracic spine. Lumbar spine. Sacral spine. Extremities/Skeleton: Right upper arm. Right forearm. Right hand. Left upper arm. Left forearm. Left hand. Right upper leg. Right lower leg. Right foot. Left upper leg. Left lower leg. Left foot. Echocardiogram ----- --------- Situs documented previously Cardiac position normal Cardiac axis normal Cardiac size normal (approx. 1/3 of thoracic area) Cardiac rhythm regular (normal) 4-chamber view normal LVOT view documented previously RVOT view documented previously 3-vessel view documented previously 9-umlnxa-noumiox view normal Aortic arch view documented previously Ductal arch view documented previously Bicaval view documented previously Interventricular septum normal Venous-atrial connections documented previously AV connections normal VA connections normal Pulmonary veins normal Right atrium normal Left atrium normal Atrial septum normal Foramen ovale normal Right ventricle normal Left ventricle normal Ventricular septum normal Cross-over gr. arteries anterior great artery (confirmed to be the pulmonary artery by its branching) which crosses the course of the proximal aorta, indicative of normal relationship of the great arteries Main PA documented previously Pulmonary arteries normal Linear insertion of AV valves no Pericardial effusion no Maternal Structures ----- --------- Uterus Visualized Cervix Suboptimal Right Ovary Not visualized Left Ovary Not visualized Cul de Sac Suboptimal Impression ----- --------- Single viable intrauterine with EFW measuring at the 33%. AC measures at the 63%. Allan cisterna magna is again identified measuring Suspicion of heterotopia on the right lateral ventricle is again visualized. anatomic survey did not reveal sonographic evidence of any other gross structural abnormalities. Amniotic fluid MVP measures 4.7 cm. Recommendations ----- --------- Please see follow up MFM documentation from today's encounter. Results forwarded to ordering provider so they can follow up with the patient as necessary. Subsequent follow up or other follow up as clinically determined by primary OB provider unless otherwise specified by MFM. Procedure Note Trav Macdonald MD - 11/16/2024 NAME: BAIRON TO : 1990 SEX: F Accession Number: [id number] ORDERING PHYSICIAN: TRAV MACDONALD REFERRING PHYSICIAN: DAVE CUELLAR Coding ----- --------- Procedures 51602: Follow-up Ultrasound, per fetus 00918: Echocardiography, , cardiovascular system, real timewith image documentation (2D), with or without M-mode recording; follow-up or repeat study Indication ----- --------- Screening for follow-up survey, Chronic hypertension affecting ,History of prior with delivery, Supervision of high risk - MOB alcohol syndrome, T13 inprev , MOB club foot, allan cisterna magna, 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 Para 4 [id number] Current ----- --------- Cell free DNA Low Risk analysis Maternal Assessment ----- --------- Physical Exam Height 165 cm, 5 ft 5 in. Weight 78 kg, 173 lb. Initialweight 78 kg, 173 lb. BMI 28.79 kg/m . Initial BMI 28.79 kg/m . Weight gain 0 kg, 0 lb Method ----- --------- Transabdominal and transvaginal ultrasound examination ----- --------- Briscoe . Number of fetuses: 1 Dating ----- --------- LMP on: 03/24/2024 GA by LMP 33 w + 6 d HUGO by LMP: 12/29/2024 Ultrasound examination on: 11/16/2024 GA by U/S based upon: AC, BPD, Femur, HC GA by U/S 33 w + 0 d HUGO by U/S: 01/04/2025 Assigned: based on the LMP, selected on 08/27/2024 Assigned GA 33 w + 6 d Assigned HUGO: 12/29/2024 General Evaluation ----- --------- Cardiac activity Present. FHR 125 bpm. Presentation: cephalic Placenta: Placental site: anterior, away from cervical os Umbilical cord: Cord vessels: 3 vessel cord. Insertion site: documentedpreviously Amniotic fluid: Amount of AF: normal amount. MVP 4.7 cm Biometry ----- --------- Standard BPD 78.3 mm 31w 3d 2% Hadlock OFD 108.8 mm 36w 0d 89% Gurdeep HC 300.6 mm 33w 2d 8% Hadlock Cerebellum tr 40.1 mm 32w 1d 10% Hill AC 302.1 mm 34w 1d 63% Hadlock Femur 64.0 mm 33w 0d 20% Hadlock Humerus 58.0 mm 33w 4d 55% Gurdeep HC / AC 1.00 EFW 2,210 g 33% Hadlock EFW (lb) 4 lb EFW (oz) 14 oz EFW by: Hadlock ([id number]) Extended Tibia 58.9 mm 34w 3d 81% Gurdeep District Sales Coordinator 6.0 mm CM 14.6 mm Head / Face / Neck Cephalic index 0.72 <1% Nicolaides Nasal bone: documented previously Extremities / Bony Struc FL / BPD 0.82 FL / HC 0.21 FL / AC 0.21 Other Structures FHR 125 bpm Anatomy ----- --------- The following structures appear abnormal: Head/Neck: Cisterna magna. The following structures appear normal: Head / Neck Cranium. Lateral ventricles. Choroid plexus. Cavum septipellucidi. Cerebellum. Face: Lips. Nose. Heart/Thorax: 4-chamber view. 7-jrwuej-fcptkfn view. Great vessels. Diaphragm. Abdomen: Stomach. Kidneys. Bladder. Small bowel. Large bowel. The following structures were documented previously: Head / Neck Midline falx. Parenchyma. Vermis. Neck. Face Profile. Nasal bone. Maxilla. Mandible. Orbits. Heart / Thorax RVOT view. LVOT view. 3-vessel view. Right lung. Left lung. Abdomen Abdom. wall. Cord insertion. Right renal artery. Left renalartery. Genitals. Spine: Cervical spine. Thoracic spine. Lumbar spine. Sacral spine. Extremities/Skeleton: Right upper arm. Right forearm. Right hand. Leftupper arm. Left forearm. Left hand. Right upper leg. Right lower leg. Right foot. Left upper leg. Left lower leg. Leftfoot. Echocardiogram ----- --------- Situs documented previously Cardiac position normal Cardiac axis normal Cardiac size normal (approx. 1/3 of thoracic area) Cardiac rhythm regular (normal) 4-chamber view normal LVOT view documented previously RVOT view documented previously 3-vessel view documented previously 4-wwmuqi-kzzvcyd view normal Aortic arch view documented previously Ductal arch view documented previously Bicaval view documented previously Interventricular septum normal Venous-atrial connections documented previously AV connections normal VA connections normal Pulmonary veins normal Right atrium normal Left atrium normal Atrial septum normal Foramen ovale normal Right ventricle normal Left ventricle normal Ventricular septum normal Cross-over gr. arteries anterior great artery (confirmed to be thepulmonary artery by its branching) which crosses the course of the proximal aorta, indicative ofnormal relationship of the great arteries Main PA documented previously Pulmonary arteries normal Linear insertion of AV valves no Pericardial effusion no Maternal Structures ----- --------- Uterus Visualized Cervix Suboptimal Right Ovary Not visualized Left Ovary Not visualized Cul de Sac Suboptimal Impression ----- --------- Single viable intrauterine with EFW measuring at the 33%. FetalAC measures at the 63%. Allan cisterna magna is again identified measuring Suspicion of heterotopia on the right lateral ventricle is againvisualized. anatomic survey did not reveal sonographic evidence of any othergross structural abnormalities. Amniotic fluid MVP measures 4.7 cm. Recommendations ----- --------- Please see follow up MFM documentation from today's encounter. Results forwarded to ordering provider so they can follow up with thepatient as necessary. Subsequent follow up or other follow up as clinically determined byprimary OB provider unless otherwise specified by MFM. us Trav Macdonald MD [facility] Final Resul t documented in this encounter Visit Diagnoses Diagnosis Supervision of high risk , antepartum documented in this encounter Additional Health Concerns Assessment Noted Time PHQ-9 Depression Total Score: 0 05/02/20 22 1:41 PM EST documented as of this encounter Care Teams Bow Maker Production Relationship Specialty Start Date End Date Jaime Wyatt PA-C [address] [place], [place] [id number] PCP - General Physician Health Care Recruiter 03/18/18 documented as of this encounter
--- OUTSIDE RECORDS SUMMARY | 2024-11-16 14:30 | XMS_ITS | Encounter Summary ---
Author Organization [facility] tem Address [id number] [address] 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
--- OUTSIDE RECORDS SUMMARY | 2024-11-23 14:20 | XMS_ITS | Encounter Summary ---
Author Organization [facility] Address [address] [facility] [place] [address] Care Team Providers Care Operational Communication Chief Name Role Phone Yoselin Jaime FERMIN Unavailable Unallocated, Noms Provider Primary Care Provi kwabena Reason for Visit * Reason Comments Routine Visit Encounter Details Date Type Department Care Team (Late st Contact Info) Description 11/23/2024 2:20 PM EDT Routine [facility] [address] [place] [address] Cuong Ortiz, DO [address] [facility] [address] [place], [facility]11 Third trimester ([facility]); 34 weeks gestation of ([facility]) Social History Tobacco Use Types Packs/Day Years [...] Sign Reading Time Taken Comments Blood Pressure 122/76 11/23/2024 2:56 PM EDT Pulse - - Temperature - - Respiratory Rate - - Oxygen Saturation - - Inhaled Oxygen Concentration - - Weight 77.6 kg (171 lb) 11/23/2024 2:56 PM EDT Height - - Body Mass Index 27.6 10/24/2022 12:00 PM EDT documented in this encounter Progress Notes * Angelica OrourkeBECK wolf - 11/23/2024 2:20 PM EDT Reason for Appointment: Patient ID: Nadine Wyatt is a 34 y.o. female who presents for Routine Visit Patient presents today for Return OB appointment. MEDICATIONS Current Outpatient Medications Medication Instructions EPINEPHrine (Epipen) 0.3 MG/0.3ML injection syringe Flonase Allergy Relief 50 MCG/ACT nasal spray Every 24 hours loratadine (Claritin) 10 MG tablet Every 24 hours Vit-Fe Fumarate-FA (PNV Plus Multivitamin) 27-1 MG tablet 1 tablet, Oral, Daily ALLERGIES Allergies Allergen Reactions Bee Pollen Other Reaction(s): Unknown Bee Venom Molds & Smuts Other Reaction(s): Unknown Penicillin G Other Reaction(s): Unknown Penicillins Hives Other Reaction(s): Unknown Other Reaction(s): Anaphylaxis Other Reaction(s): Unknown Other Reaction(s): Anaphylaxis Other Reaction(s): Unknown Sulfa Antibiotics Other Reaction(s): Unknown Other Reaction(s): Rash Other Reaction(s): Unknown Other Reaction(s): Rash Other Reaction(s): Unknown Sulfamethoxazole Other Reaction(s): Unknown PROBLEMS Active Ambulatory Problems Diagnosis Date Noted Family history of trisomy 13 09/30/2023 Resolved Ambulatory Problems Diagnosis Date Noted No Resolved Ambulatory Problems Past Medical History: Diagnosis Date Abscess ADD (attention deficit disorder) ADHD (attention deficit hyperactivity disorder) ([facility]) Anxiety Bacterial vaginosis Bipolar disorder Club foot Depression ([facility]) Female infertility Heart problem Hormone imbalance HISTORY PAST MEDICAL HISTORY SOCIAL HISTORY Past Medical History: Diagnosis Date Abscess ADD (attention deficit disorder) ADHD (attention deficit hyperactivity disorder) ([facility]) Anxiety Bacterial vaginosis Bipolar disorder Club foot Depression ([facility]) Female infertility Heart problem Heart Issue [...] nursing note reviewed. Exam conducted with a assistance representative present. Vitals: Estimated body mass index is 27.6 kg/m?? as calculated from the following: Height as of 10/24/22: 5' 6 . Weight as of this encounter: 171 lb. BP: 122/76 Patient's last menstrual period was 03/24/2024. ASSESSMENT & PLAN ICD-10-CM 1. Third trimester Z34.93 2. 34 weeks gestation of Z3A.34 Return OB: Patient presents today for a routine obstetrics appointment. Patient is currently 34w6d . Patient states she is doing well but has complaints of being tired due to current . Patient has verbalizes frequent movement. labor precautions was discussed/given and patient was instructed to perform kick counts three times a day. Patient was seen by MFM on 11/16/24 andbaby was measuring at least 4#'s. Follow Up: Patient is to return to office in 1-2 week for routine OB appointment. Documented by Airam Murphy LPN on behalf of: Cuong Ortiz DO documented in this encounter Plan of Treatment Upcoming Encounters Date Type Department Care Team (Late st Contact Info) Description 11/30/2024 1:00 PM EDT Routine [facility] OB [address] [facility] [phone] Cuong Ortiz, DO [address] [facility] [place] [address] documented as of this encounter Goals Goal Patient Goal Type Associated Problems Recent Progress Patient-Stated? Author Reminders Care Plan OB Reminders No Open Scheduling, Background documented as of this encounter Procedures Procedure Name Priority Date/Time Associated Diagnosis Comments POCT URINALYSIS DIPSTICK Routine 11/23/2024 2:58 PM EDT Third trimester ([facility]) documented in this encounter Results * (ABNORMAL) POCT urinalysis dipstick manually resulted (11/23/2024 2:58 PM EDT) Color, UA Yellow Clarity, UA Clear Glucose, UA Negative Negative - 2000(110) ++++ mg/dL Bilirubin, UA Negative Negative - 4(70) +++ mg/dL Ketones, UA Positive Negative - 160(16) ++++ mg/dL Comment:trace Spec Grav, UA 1.020 1 - 1.03 Blood, UA Negative Negative - 50 Rakesh/mcL pH, UA 6.5 5 - 9 Protein, UA Trace Negative - 2000(20) ++++ mg/dL Urobilinogen, UA 1.0 0.2 - 12 mg/dL Leukocytes, UA Positive Negative - 500+++ Matti/mcL Comment:small Nitrite, UA Negative Negative - Positive Urine 11/23/2024 2:58 PM EDT Cuong Ortiz DO POINT OF CARE TEST ENTER/EDIT OR DERABLES Final Result documented in this encounter Visit Diagnoses Diagnosis Third trimester ([facility]) state, incidental 34 weeks gestation of ([facility]) documented in this encounter Additional Health Concerns Active Problems Noted Date Diagnosed Date OB Reminders 06/23/2024 documented as of this encounter Care Teams Operational Communication Chief Relationship Specialty Start Date End Date Unallocated, Noms Provider, [address] [place] [address] PCP - General 03/04/23 Jaime Wyatt PA [address] [place], [place] [phone] Referring Physician Physical Medicine and Rehabilitation 03/04/23 documented as of this encounter
--- OUTSIDE RECORDS SUMMARY | 2024-11-26 10:38 | XMS_ITS | Encounter Summary ---
Author Organization [facility] Address [address] [facility] [place] [address] Care Team Providers Care Driver License Agent Name Role Phone Jaime Wyatt Unavailable Unallocated, Noms Provider Primary Care Provi kwabena Encounter Details Date Type Department Care Team (Late st Contact Info) Description 11/07/2023 Abstract [facility] [address] [facility] [place] [address] Cuong Ortiz DO [facility] [place], [place] [address] Social History Tobacco Use Types Packs/Day Years [...] [place] [address] Cuong Ortiz DO [facility] [place], [place] [phone] documented as of this encounter Visit Diagnoses Not on filedocumented in this encounter Care Teams Driver License Agent Relationship Specialty Start Date End Date Unallocated, Noms Provider, [address] [place], [place] [address] PCP - General 03/04/23 Jaime Wyatt PA [address] [place], [place] [phone] Referring Physician Physical Medicine and Rehabilitation 03/04/23 documented as of this encounter
--- OUTSIDE RECORDS SUMMARY | 2024-11-26 10:38 | XMS_ITS | Clinical Summary ---
Author Organization [facility] tem Address [id number] [address] 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 (Primary Dx); Christiano cisterna magna (CMS-HCC) - 11/16/2024 12:43 PM EDT - 11/16/2024 11:59 PM EDT Hospital Encounter [facility] - [facility] US Imaging [address] [place] [address] Supervision of high risk , antepartum Discharge Disposition: Home 11/16/2024 Travel 09/28/2024 2:00 PM EDT Office Visit Maternal- Medicine at [facility] [address] [place] [address] Trav Macdonald MD Christiano cisterna magna (CMS-HCC) - (Primary Dx); Nodular heterotopia (CMS-HCC) - ; 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 , 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 09/28/2024 12:43 PM EDT - 09/28/2024 11:59 PM EDT Hospital Encounter [facility] - [facility] US Imaging [address] [place] [address] 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 , 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; Family history of genetic disorder; Fetus with trisomy 13, single gestation; CM (congenital malformation); Suspected anomaly, antepartum, single or unspecified fetus Discharge Disposition: Home 09/28/2024 Travel 08/27/2024 2:30 PM EDT Telemedicine Maternal Medicine [place] [address] [address] Alyson Packer MD Suspected anomaly, antepartum, single or unspecified fetus (Primary Dx); 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 , 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; Family history of genetic disorder; Fetus with trisomy 13, single gestation; CM (congenital malformation) 08/27/2024 Travel 08/27/2024 Abstract Maternal- Medicine at [facility] [address] [place] [address] External, Scanning Provider 08/27/2024 Orders Only Maternal- Medicine at [facility] [address] [place] [address] Beronica Minaya, GEOTHERMAL OPERATIONS ENGINEER 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 , [...] Supervision of high risk , antepartum US [facility] OB FOLLOW-UP, 1 FETUS Routine 09/28/2024 2:38 [...] period is included. Anatomical Region Laterality Modality OB-CUSTOMS COMPLIANCE DIRECTOR Ultrasound 11/16/2024 1:48 PM EDT Narrative 11/16/2024 3:25 PM EDT NAME: YOSELIN TO : 1990 SEX: F Accession Number: [id number] ORDERING PHYSICIAN: TRAV MACDONALD REFERRING PHYSICIAN: DAVE CUELLAR Coding ----- --------- Procedures 63925: Follow-up Ultrasound, per fetus 48165: Echocardiography, , cardiovascular system, real time with [...] ----- --------- OB History 7. Para 4 [id number] Current ----- --------- Cell free DNA Low [...] EFW (oz) 14 oz EFW by: Hadlock (QIB-PF-FA-FL) Extended Tibia 58.9 mm 34w 3d 81% Gurdeep Scooter Mechanic 6.0 mm CM 14.6 mm Head / [...] Cerebellum. Face: Lips. Nose. Heart/Thorax: 4-chamber view. 3-euagid-qabkdkj view. Great vessels. Diaphragm. Abdomen: Stomach. Kidneys. [...] view documented previously 3-vessel view documented previously 9-dpnrcw-vpfhvgc view normal Aortic arch view documented previously [...] TO : 1990 SEX: F Accession Number: [id number] ORDERING PHYSICIAN: TRAV MACDONALD REFERRING PHYSICIAN: DAVE CUELLAR Coding ----- --------- Procedures 92812: Follow-up Ultrasound, per fetus [address]: Echocardiography, , cardiovascular system, real timewith image documentation (2D), with or without M-mode recording; follow-up or repeat study Indication ----- --------- Screening for follow-up survey, Chronic hypertension affecting ,History of prior with delivery, Supervision of high risk - MOB alcohol syndrome, T13 inprev , MOB club foot, christiano cisterna magna, 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 Para 4 [id number] Current ----- --------- Cell free DNA Low [...] EFW (oz) 14 oz EFW by: Hadlock (LCH-WE-SI-FL) Extended Tibia 58.9 mm 34w 3d 81% Gurdeep Scooter Mechanic 6.0 mm CM 14.6 mm Head / [...] Cerebellum. Face: Lips. Nose. Heart/Thorax: 4-chamber view. 7-duetgw-dmtjwic view. Great vessels. Diaphragm. Abdomen: Stomach. Kidneys. [...] view documented previously 3-vessel view documented previously 6-ewbyfp-ennxyxu view normal Aortic arch view documented previously [...] of Phone Billing Address Personal/Family Self 1990 [address] [facility] [address] [place] [address] [employer] Care Teams Betting Clerk Relationship Specialty Start Date End Date Jaime Wyatt PA-C [address] [place] [address] [phone] PCP - General Physician Financial Institution President 03/18/18
--- OUTSIDE RECORDS SUMMARY | 2024-11-26 10:38 | XMS_ITS | Encounter Summary ---
Author Organization [facility] Address [address] [place] [address] Care Team Providers Care Jboss Architect Name Role Phone Unavailable Primary Care Provider Unavailabl e Source Comments In the event this information is protected by the Federal Confidentiality of Alcohol and Drug AbusePatient Records regulations: The Federal rules restrict any use of the information to criminally investigate or prosecute any alcohol or drug abuse patient.[facility] Encounter Details Date Type Department Care Team (Late st Contact Info) Description 02/10/2022 Lab Requisition [facility] [address] [place] [address] Eleazar Hess PA-C [address] [facility] [place] [phone] Social History Tobacco Use Types Packs/Day Years [...] Report SEE NOTE 02/22/2022 1:25 PM EDT [facility] Where Comment: Finegoldia magna Organism identified by client [...] caution. REKHA M Beta-Lactamase Neg Performed by [facility], [address] [place] [address] [email or web address], Piero Beaver MD, PHD, Lab. Director Micro Specimen SPECIMEN FROM ABSCESS / Unknown 02/05/2022 8:00 PM EDT 02/10/2022 3:57 PM EDT Eleazar Hess PA-C LABORATORY Final Result [facility] [address] [place] [address] * (ABNORMAL) ORGANISM TARYN (02/05/2022 8:00 PM EDT) Culture, Organism TARYN Result Finegoldia magna(A) MINIMUM INHIBITORY CONCENTRATION ([place]) 02/24/2022 2:08 PM EDT [facility] Micro Specimen SPECIMEN FROM ABSCESS / Unknown 02/05/2022 8:00 PM EDT 02/10/2022 3:57 PM EDT Narrative [facility] - 02/24/2022 2:08 PM EDT Susceptibility results have been completed by [facility]. us Eleazar Hess PA-C LABORATORY Final Result Performing Organization Address City/[facility]/ZIP Co de Phone Number [facility] [address] [address], [place] * (ABNORMAL) ORGANISM ID ANAEROBE (02/05/2022 8:00 PM EDT) Culture, Organism ID Anaerobe Finegoldia magna(A) 02/16/2022 3:33 PM EDT [facility] Micro Specimen SPECIMEN FROM ABSCESS / Unknown 02/05/2022 8:00 PM EDT 02/10/2022 3:57 PM EDT us Eleazar Hess PA-C LABORATORY Final Result Performing Organization Address [facility]/ZIP Co de Phone Number [facility] [address] [address], [place] documented in this encounter Visit Diagnoses Not on filedocumented in this encounter
--- OUTSIDE RECORDS SUMMARY | 2024-11-26 10:38 | XMS_ITS | Encounter Summary ---
Author Organization [facility] Address [address] [facility] [place] [address] Care Team Providers Care First Coat Sander Name Role Phone Yoselin Jaime FERMIN Unavailable Unallocated, Noms Provider Primary Care Provi kwabena Encounter Details Date Type Department Care Team (Late st Contact Info) Description 12/13/2023 Abstract [facility] B[facility] OB [address] [place] [employer] [facility] [place] [phone] Destinee Vazquez LPN [address] [facility] [place] [address] Social History Tobacco Use Types Packs/Day Years [...] PM EDT Routine [facility] BCP OB [address] [place] [employer] [facility] [place] [address] Cuong Ortiz DO [address] [facility] [address] [place] [phone] documented as of this encounter Visit Diagnoses Not on filedocumented in this encounter Care Teams First Coat Sander Relationship Specialty Start Date End Date Unallocated, Noms Provider, [address] [place], [place] [phone] PCP - General 03/04/23 Jaime Wytat PA [address] [place], [place] [phone] Referring Physician Physical Medicine and Rehabilitation 03/04/23 documented as of this encounter
--- OUTSIDE RECORDS SUMMARY | 2024-11-26 10:38 | XMS_ITS | Encounter Summary ---
Author Organization [facility] Address [address] [facility] [place] [address] Care Team Providers Care Practice Billing Associate Name Role Phone Yoselin Jaime FERMIN Unavailable Unallocated, Noms Provider Primary Care Provi kwabena Encounter Details Date Type Department Care Team (Late st Contact Info) Description 10/16/2023 Clinisync Result Encounter [facility] External Department Unsolicited Dave Ortiz, [facility] [place], [place] [address] Social History Tobacco Use Types Packs/Day Years [...] Routine [facility] BCP OB [address] [place] [phone] Dave Ortiz DO [facility] [place] [address] documented as of this encounter Procedures Procedure Name Priority Date/Time Associated Diagnosis Comments US OB BPP W NON-STRESS 10/16/2023 3:05 PM EDT documented in this encounter Results * US OB BPP W NON-STRESS (10/16/2023 3:05 PM EDT) Anatomical Region Laterality Modality Other 10/16/2023 3:05 PM EDT Narrative 10/16/2023 3:08 [place] [address] Ultrasound Report Signed Patient: ZULEIKA WADDELL MR#: [id number] : 1990 Acct:[id number] Age/Sex: 33 / F ADM Date: 10/16/23 Loc: [facility] 250-[address]: Dave Ortiz D.O. Ordering Physician: Dave Ortiz D.O. Date of Service: 10/16/23 Procedure(s): US OB BPP w non-stress Accession Number(s): [id number] cc: Dave Ortiz D.O.; WaddellJaime [place] [address] Patient Name: ZULEIKA WADDELL MRN: [id number] date: 1990 Sex: F Assigned Patient Location: [facility] Current Patient Location: [facility] Accession/Order Number: [id number] Exam Date: 10/16/2023 14:10 Report Date: 10/16/2023 [...] Signed By: 10/16/23 1508 DD/ 1505 TD/TT: Pattern Chain Maker Supervisor: Procedure Note Radiology, Radiologist, - 10/16/2023 [place] [address] Ultrasound Report Signed Patient: ZULEIKA WADDELL LMR#: [id number] : 1990Acct:[id number] Age/Sex: 33 / FADM Date: 10/16/23 Loc: [facility] 250-[address]: Dave Ortiz D.O. Ordering Physician: Dave Ortiz D.O. Date of Service: 10/16/23 Procedure(s): US OB BPP w non-stress Accession Number(s): [id number] cc: aDve Ortiz D.O.; Jaime Waddell [place] [address] Patient Name: ZULEIKA WADDELL MRN: [id number] date: 1990 Sex: F Assigned Patient Location: [facility] Current Patient Location: [facility] Accession/Order Number: [id number] Exam Date: 10/16/2023 14:10 Report Date: 10/16/2023 [...] M.D. Signed By:10/16/23 1508 DD/ 1505 TD/TT: Pattern Chain Maker Supervisor: us Dave Ortiz DO [facility] Final Result documented in this encounter Visit Diagnoses Not on filedocumented in this encounter Care Teams Practice Billing Associate Relationship Specialty Start Date End Date Unallocated, Noms Provider, [address] [place], [place] [phone] PCP - General 03/04/23 Jaime Waddell PA [address] [place] [address] Referring Physician Physical Medicine and Rehabilitation 03/04/23 documented as of this encounter
--- OUTSIDE RECORDS SUMMARY | 2024-11-26 10:38 | XMS_ITS | Encounter Summary ---
Author Organization [facility] Address [address] [facility] [place] [address] Care Team Providers Care Truck Trailer Final Inspector Name Role Phone Yoselin Jaime FERMIN Unavailable Unallocated, Noms Provider Primary Care Provi kwabena Encounter Details Date Type Department Care Team (Late st Contact Info) Description 11/07/2023 Clinisync Result Encounter [facility] External Department Unsolicited Dave Ortiz, [facility] [place], [place] [address] Social History Tobacco Use Types Packs/Day Years [...] Routine [facility] BCP OB [address] [place] [phone] Dave Ortiz DO [facility] [place] [address] documented as of this encounter Procedures Procedure Name Priority Date/Time Associated Diagnosis Comments US OB BPP W NON-STRESS 11/07/2023 7:10 AM EDT documented in this encounter Results * US OB BPP W NON-STRESS (11/07/2023 7:10 AM EDT) Anatomical Region Laterality Modality Other 11/07/2023 7:10 AM EDT Narrative 11/07/2023 7:13 [place] [address] Ultrasound Report Signed Patient: ZULEIKA WADDELL MR#: [id number] : 1990 Acct:[id number] Age/Sex: 33 / F ADM Date: 11/06/23 Loc: US Attending Dr: Dave Ortiz D.O. Ordering Physician: Dave Ortiz D.O. Date of Service: 11/06/23 Procedure(s): US OB BPP w non-stress Accession Number(s): [id number] cc: Dave Ortiz D.O.; Jaime Waddell [place] [address] Patient Name: ZULEIKA WADDELL MRN: [id number] date: 1990 Sex: F Assigned Patient Location: Current Patient Location: [facility] Accession/Order Number: [id number] Exam Date: 11/06/2023 14:19 Report Date: 11/07/2023 [...] M.D. Signed By: 11/07/23712 DD/ 9 TD/TT: Fryline Attendant: Procedure Note Radiology, Radiologist, - 11/07/2023 [place] [address] Ultrasound Report Signed Patient: ZULEIKA WADDELL LMR#: [id number] : 1990Acct:[id number] Age/Sex: 33 / FADM Date: 11/06/23 Loc: US Attending Dr: Dave Ortiz D.O. Ordering Physician: Dave Ortiz D.O. Date of Service: 11/06/23 Procedure(s): US OB BPP w non-stress Accession Number(s): [id number] cc: Dave Ortiz D.O.; Jaime Waddell [place] [phone] Patient Name: ZULEIKA WADDELL MRN: [id number] date: 1990 Sex: F Assigned Patient Location: Current Patient Location: [facility] Accession/Order Number: [id number] Exam Date: 11/06/2023 14:19 Report Date: 11/07/2023 [...] Crump M.D. Signed By:11/07/23712 DD/ 9 TD/TT: Fryline Attendant: us Dave Diana DO [facility] Final Result documented in this encounter Visit Diagnoses Not on filedocumented in this encounter Care Teams Truck Trailer Final Inspector Relationship Specialty Start Date End Date Unallocated, Noms Provider, [address] [place], [place] [phone] PCP - General 03/04/23 Jaime Waddell PA [address] [place] [address] Referring Physician Physical Medicine and Rehabilitation 03/04/23 documented as of this encounter
--- OUTSIDE RECORDS SUMMARY | 2024-11-26 10:38 | XMS_ITS | Encounter Summary ---
Author Organization [facility] Address [address] [facility] [place] [address] Care Team Providers Care Overcoil Stepper Name Role Phone Yoselin Jaime FERMIN Unavailable Unallocated, Noms Provider Primary Care Provi kwabena Encounter Details Date Type Department Care Team (Late st Contact Info) Description 10/10/2023 Clinisync Result Encounter [facility] External Department Unsolicited Dave Ortiz, [facility] [place], [place] [address] Social History Tobacco Use Types Packs/Day Years [...] Routine [facility] BCP OB [address] [place] [phone] Dave Ortiz DO [facility] [place] [address] documented as of this encounter Procedures Procedure Name Priority Date/Time Associated Diagnosis Comments US OB GROWTH 10/10/2023 7:18 AM EDT documented in this encounter Results * US OB GROWTH (10/10/2023 7:18 AM EDT) Anatomical Region Laterality Modality Other 10/10/2023 7:18 AM EDT Narrative 10/10/2023 7:21 [place] [address] Ultrasound Report Signed Patient: ZULEIKA WADDELL MR#: [id number] : 1990 Acct:[id number] Age/Sex: 33 / F ADM Date: 10/09/23 Loc: US Attending Dr: Dave Ortiz D.O. Ordering Physician: Dave Ortiz D.O. Date of Service: 10/09/23 Procedure(s): US OB growth Accession Number(s): [id number] cc: Dave Ortiz D.O.; Jaime Waddell [place] [address] Patient Name: ZULEIKA WADDELL MRN: [id number] date: 1990 Sex: F Assigned Patient Location: [facility] Current Patient Location: [place] Accession/Order Number: [id number] Exam Date: 10/09/2023 15:20 Report Date: 10/10/2023 [...] M.D. Signed By: 10/10/23720 DD/ 7 TD/TT: Carbon Paper Machine Operator: Procedure Note Radiology, Radiologist, MD - 10/10/2023 [place] [address] Ultrasound Report Signed Patient: ZULEIKA WADDELL LMR#: [id number] : 1990Acct:[id number] Age/Sex: 33 / FADM Date: 10/09/23 Loc: US Attending Dr: Dave Ortiz D.O. Ordering Physician: Dave Ortiz D.O. Date of Service: 10/09/23 Procedure(s): US OB growth Accession Number(s): [id number] cc: Dave Ortiz D.O.; Jaime [place]addell [place] [address] Patient Name: ZULEIKA WADDELL MRN: [id number] date: 1990 Sex: F Assigned Patient Location: [facility] Current Patient Location: [place] Accession/Order Number: [id number] Exam Date: 10/09/2023 15:20 Report Date: 10/10/2023 [...] Dawn M.D. Signed By:10/10/23720 DD/ 7 TD/TT: Carbon Paper Machine Operator: us Dave Diana DO [facility] Final Result documented in this encounter Visit Diagnoses Not on filedocumented in this encounter Care Teams Overcoil Stepper Relationship Specialty Start Date End Date Unallocated, Noms Prakash, [address] [place] [address] PCP - General 03/04/23 Jaime Waddell PA [address] [place], [place] [phone] Referring Physician Physical Medicine and Rehabilitation 03/04/23 documented as of this encounter
--- OUTSIDE RECORDS SUMMARY | 2024-11-26 10:38 | XMS_ITS | Encounter Summary ---
Author Organization [facility] Address [address] [facility] [place] [address] Care Team Providers Care Rn Complex Care Name Role Phone Yoselin Jaime FERMIN Unavailable Unallocated, Noms Provider Primary Care Provi kwabena Encounter Details Date Type Department Care Team (Late st Contact Info) Description 10/24/2023 Clinisync Result Encounter [facility] External Department Unsolicited Dave Ortiz, [facility] [place], [place] [address] Social History Tobacco Use Types Packs/Day Years [...] [facility]OMS BCP OB [address] [place] [phone] Dave Ortiz DO [facility] [place] [address] documented as of this encounter Procedures Procedure Name Priority Date/Time Associated Diagnosis Comments US OB BPP W NON-STRESS 10/24/2023 7:37 AM EDT documented in this encounter Results * US OB BPP W NON-STRESS (10/24/2023 7:37 AM EDT) Anatomical Region Laterality Modality Other 10/24/2023 7:37 AM EDT Narrative 10/24/2023 7:40 [place] [address] Ultrasound Report Signed Patient: ZULEIKA WADDELL MR#: [id number] : 1990 Acct:[id number] Age/Sex: 33 / F ADM Date: 10/23/23 Loc: US Attending Dr: Dave Ortiz D.O. Ordering Physician: Dave Ortiz D.O. Date of Service: 10/23/23 Procedure(s): US OB BPP w non-stress Accession Number(s): [id number] cc: Dave Ortiz D.O.; Jaime Waddell [place] [address] Patient Name: ZULEIKA WADDELL MRN: [id number] date: 1990 Sex: F Assigned Patient Location: [place] Current Patient Location: Accession/Order Number: [id number] Exam Date: 10/23/2023 15:25 Report Date: 10/24/2023 [...] M.D. Signed By: 10/24/23739 DD/ 6 TD/TT: Photo Finisher: Procedure Note Radiology, Radiologist, - 10/24/2023 [place] [address] Ultrasound Report Signed Patient: ZULEIKA WADDELL LMR#: [id number] : 1990Acct:[id number] Age/Sex: 33 / FADM Date: 10/23/23 Loc: US Attending Dr: Dave Ortiz D.O. Ordering Physician: Dave Ortiz D.O. Date of Service: 10/23/23 Procedure(s): US OB BPP w non-stress Accession Number(s): [id number] cc: Dave Ortiz D.O.; Jaime Waddell [place] [phone] Patient Name: ZULEIKA WADDELL MRN: [facility]:[id number] date: 1990 Sex: F Assigned Patient Location: US Current Patient Location: US Accession/Order Number: [id number] Exam Date: 10/23/2023 15:25 Report Date: 10/24/2023 [...] Dawn M.D. Signed By:10/24/2340 DD/ 6 TD/TT: Photo Finisher: us Dave Ortiz DO [facility] Final Result documented in this encounter Visit Diagnoses Not on filedocumented in this encounter Care Teams Rn Complex Care Relationship Specialty Start Date End Date Unallocated, Noms Provider, [address] [place], [place] [phone] PCP - General 03/04/23 Jaime Waddell PA [address] [place] [place] [address] Referring Physician Physical Medicine and Rehabilitation 03/04/23 documented as of this encounter
--- OUTSIDE RECORDS SUMMARY | 2024-11-26 10:38 | XMS_ITS | Encounter Summary ---
Author Organization [facility] Address [address] [facility] [place] [address] Care Team Providers Care Seismic Plotter Name Role Phone Yoselin Jaime FERMIN Unavailable Unallocated, Noms Provider Primary Care Provi kwabena Encounter Details Date Type Department Care Team (Late st Contact Info) Description 11/06/2023 Clinisync Result Encounter NOMS External Department Unsolicited Dave Ortiz, [facility] [place], [place] [address] Social History Tobacco Use Types Packs/Day Years [...] [facility]OMS BCP OB [address] [place] [phone] Dave Ortiz DO [facility] [place] [address] documented as of this encounter Procedures Procedure Name Priority Date/Time Associated Diagnosis Comments US OB GROWTH 11/06/2023 3:54 PM EDT documented in this encounter Results * US OB GROWTH (11/06/2023 3:54 PM EDT) Anatomical Region Laterality Modality Other 11/06/2023 3:54 PM EDT Narrative 11/06/2023 3:57 [place] [address] Ultrasound Report Signed Patient: ZULEIKA WADDELL MR#: [id number] : 1990 Acct:[id number] Age/Sex: 33 / F ADM Date: 11/06/23 Loc: US Attending Dr: Dave Ortiz D.O. Ordering Physician: Dave Ortiz D.O. Date of Service: 11/06/23 Procedure(s): US OB growth Accession Number(s): [id number] cc: Dave Ortiz D.O.; Jaime Waddell [place] [address] Patient Name: ZULEIKA WADDELL MRN: [id number] date: 1990 Sex: F Assigned Patient Location: US Current Patient Location: Accession/Order Number: [id number] Exam Date: 11/06/2023 14:19 Report Date: 11/06/2023 [...] M.D. Signed By: 11/06/231556 DD/ 53 TD/TT: Physician Executive: Procedure Note Radiology, Radiologist, MD - 11/06/2023 [place] [address] Ultrasound Report Signed Patient: ZULEIKA WADDELL LMR#: [id number] : 1990Acct:[id number] Age/Sex: 33 FADM Date: 11/06/23 Loc: US Attending Dr: Dave Ortiz D.O. Ordering Physician: Dave Ortiz D.O. Date of Service: 11/06/23 Procedure(s): US OB growth Accession Number(s): [id number] cc: Dave Ortiz D.O.; Jaime Waddell [place] [address] Patient Name: ZULEIKA WADDELL MRN: [id number] date: 1990 Sex: F Assigned Patient Location: US Current Patient Location: Accession/Order Number: [id number] Exam Date: 11/06/2023 14:19 Report Date: 11/06/2023 [...] M.D. Signed By:11/06/23 1557 DD/ 53 TD/TT: Physician Executive: us Dave Diana DO [facility] Final Result documented in this encounter Visit Diagnoses Not on filedocumented in this encounter Care Teams Seismic Plotter Relationship Specialty Start Date End Date Unallocated, Noms Provider, [address] [place], [place] [phone] PCP - General 03/04/23 Jaime Waddell PA [address] [place], [place] [phone] Referring Physician Physical Medicine and Rehabilitation 03/04/23 documented as of this encounter
--- OUTSIDE RECORDS SUMMARY | 2024-11-26 10:38 | XMS_ITS | Encounter Summary ---
Author Organization [facility] Address [address] [facility] [place] [address] Care Team Providers Care Oracle Business Intelligence Developer Name Role Phone YoselinJaime FERMIN Unavailable Unallocated, Noms Provider Primary Care Provi kwabena Encounter Details Date Type Department Care Team (Late st Contact Info) Description 05/19/2024 Clinisync Result Encounter NOMS External Department Unsolicited Dave Ortiz, [facility] [place], [place] [address] Social History Tobacco Use Types Packs/Day Years [...] Routine [facility] BCP OB [address] [place] [id number] Dave Ortiz DO [facility] [place] [address] documented as of this encounter Procedures Procedure Name Priority Date/Time Associated Diagnosis Comments US OB TRANSVAGINAL 05/19/2024 7: 24 AM EST documented in this encounter Results * US OB TRANSVAGINAL (05/19/2024 7:24 AM EST) Anatomical Region Laterality Modality Other 05/19/2024 7:24 AM EST Narrative 05/19/2024 7:27 [place] [address] Ultrasound Report Signed Patient: ZULEIKA WADDELL MR#: [id number] : 1990 Acct:[id number] Age/Sex: 34 / F ADM Date: 05/18/24 Loc: US Attending Dr: Dave Ortiz D.O. Ordering Physician: Dave Ortiz D.O. Date of Service: 05/18/24 Procedure(s): US OB transvaginal Accession Number(s): [id number] cc: Dave Ortiz D.O.; YoselinJaime [place] [address] Patient Name: ZULEIKA WADDELL MRN: [id number] date: 1990 Sex: F Assigned Patient Location: US Current Patient Location: Accession/Order Number: [id number] Exam Date: 05/18/2024 17:15 Report Date: 05/19/2024 [...] M.D. Signed By: 05/19/24726 DD/ 3 TD/TT: Drafter Topographical: Procedure Note Radiology, Radiologist, - 05/19/2024 [place] [address] Ultrasound Report Signed Patient: ZULEIKA WADDELL LMR#: [id number] : 1990Acct:[id number] Age/Sex: 34 / FADM Date: 05/18/24 Loc: US Attending Dr: Dave Ortiz D.O. Ordering Physician: Dave Ortiz D.O. Date of Service: 05/18/24 Procedure(s): US OB transvaginal Accession Number(s): [id number] cc: Dave Ortiz D.O.; Jaime Waddell [place] [id number] Patient Name: ZULEIKA WADDELL MRN: [id number] date: 1990 Sex: F Assigned Patient Location: US Current Patient Location: Accession/Order Number: [id number] Exam Date: 05/18/2024 17:15 Report Date: 05/19/2024 [...] Crump M.D. Signed By:05/19/24726 DD/ 3 TD/TT: Drafter Topographical: us Dave Diana DO [facility] Final Result documented in this encounter Visit Diagnoses Not on filedocumented in this encounter Care Teams Oracle Business Intelligence Developer Relationship Specialty Start Date End Date Unallocated, Noms Provider, [address] [place] [address] PCP - General 03/04/23 Jaime Waddell PA [address] [place] [address] Referring Physician Physical Medicine and Rehabilitation 03/04/23 documented as of this encounter
--- OUTSIDE RECORDS SUMMARY | 2024-11-26 10:38 | XMS_ITS | Encounter Summary ---
Author Organization [facility] Address [address] [facility] [place] [address] Care Team Providers Care Import Export Manager Name Role Phone Yoselin Jaime FERMIN Unavailable Unallocated, Noms Provider Primary Care Provi kwabena Encounter Details Date Type Department Care Team (Late st Contact Info) Description 11/16/[address] [facility] OB [address] [place] [address] Cuong Ortiz DO [facility] [place], [place] [address] Social History Tobacco Use Types Packs/Day Years [...] [place] [address] Cuong Ortiz DO [address] [place] [address] [place] [address] documented as of this encounter Goals Goal Patient Goal Type Associated Problems Recent Progress Patient-Stated? Author Reminders Care Plan OB Reminders No Open Scheduling, Background documented as of this encounter Visit Diagnoses Not on filedocumented in this encounter Additional Health Concerns Active Problems Noted Date Diagnosed Date OB Reminders 06/23/2024 documented as of this encounter Care Teams Import Export Manager Relationship Specialty Start Date End Date Unallocated, Noms Provider, [address] [place] [address] PCP - General 03/04/23 Jaime Wyatt PA [address] [place] [address] Referring Physician Physical Medicine and Rehabilitation 03/04/23 documented as of this encounter
--- OUTSIDE RECORDS SUMMARY | 2024-11-26 10:38 | XMS_ITS | Encounter Summary ---
Author Organization [facility] Address [address] [facility] [place] [address] Care Team Providers Care Skirt Panel Assembler Name Role Phone YoselinJaime FERMIN Unavailable Unallocated, Noms Provider Primary Care Provi kwabena Encounter Details Date Type Department Care Team (Late st Contact Info) Description 11/17/2024 Clinisync Result Encounter [facility]OMS External Department Unsolicited Dave Ortiz, DO [address] [place] [address] Social History Tobacco Use Types Packs/Day Years [...] Description 11/30/2024 1:00 PM EDT Routine [facility] OB [address] [place] [phone] Dave Ortiz, DO [address] [place] [address] (work) documented as of this encounter Goals [...] AM EDT Narrative 11/17/2024 10:19 [place] [address] Ultrasound Report Signed Patient: ZULEIKA WADDELL MR#: [id number] : 1990 Acct:[id number] Age/Sex: 34 / F ADM Date: 11/17/24 Loc: US Attending Dr: Dave Ortiz D.O. Ordering Physician: Dave Ortiz D.O. Date of Service: 11/17/24 Procedure(s): US OB BPP w non-stress Accession Number(s): [id number] cc: Dave Ortiz D.O.; Ramon Avila M.D. [address] [address] Patient Name: ZULEIKA WADDELL MRN: [id number] date: 1990 Sex: F Assigned Patient Location: [facility] Current Patient Location: Accession/Order Number: [id number] Exam Date: 11/17/2024 10:16 Report Date: 11/17/2024 [...] Mahan M.D. 11/17/2024 10:17 AM Dictation Location: [place] [address] Electronically authenticated by: [id number] Y Date: 11/17/2024 10:17 Dictated By: Adela Mahan M.D. Signed By: 11/17/24 1019 DD/ 1017 TD/TT: Gastroenterology Technician: Procedure Note Radiology, Radiologist, MD - 11/17/2024 [place] [address] Ultrasound Report Signed Patient: ZULEIKA WADDELL LMR#: [id number] : 1990Acct:[id number] Age/Sex: 34 / FADM Date: 11/17/24 Loc: US Attending Dr: Dave Ortiz D.O. Ordering Physician: Dave Ortiz D.O. Date of Service: 11/17/24 Procedure(s): US OB BPP w non-stress Accession Number(s): [id number] cc: Dave Ortiz D.O.; Ramon Avila M.D. The [place] [address] Patient Name: ZULEIKA WADDELL MRN: [facility]:[id number] date: 1990 Sex: F Assigned Patient Location: [facility] Current Patient Location: Accession/Order Number: [id number] Exam Date: 11/17/2024 10:16 Report Date: 11/17/2024 [...] IMPRESSION: NORMAL BIOPHYSICAL PROFILE Impression dictated by: Adeal Mahan M.D. 11/17/2024 10:17 AM Dictation Location: [place] [address] Electronically authenticated by: [id number] Y Date: 0:17 Dictated By: Adela Mahan M.D. Signed By:11/17/24 1019 DD/ 1017 TD/TT: Gastroenterology Technician: us Dave Ortiz DO [facility] Final Result documented in this encounter Visit Diagnoses Not on filedocumented in this encounter Additional Health Concerns Active Problems Noted Date Diagnosed Date OB Reminders 06/23/2024 documented as of this encounter Care Teams Skirt Panel Assembler Relationship Specialty Start Date End Date Unallocated, Noms Provider, [address] [place] [address] PCP - General 03/04/23 Jaime Waddell PA [address] [place] [address] Referring Physician Physical Medicine and Rehabilitation 03/04/23 documented as of this encounter
--- OUTSIDE RECORDS SUMMARY | 2024-11-26 10:38 | XMS_ITS | Encounter Summary ---
Author Organization [facility] Address [address] [facility] [place] [address] Care Team Providers Care Assistant Media Buyer Name Role Phone Yoselin Jaime FERMIN Unavailable Unallocated, Noms Provider Primary Care Provi kwabena Encounter Details Date Type Department Care Team (Late st Contact Info) Description 11/18/2023 Abstract [facility] [address] [facility] [place] [address] Destinee Vazquez LPN [address] [facility] [place] [address] Social History Tobacco Use Types Packs/Day Years [...] PM EDT Routine [facility]CP [facility] [address] [facility] [place] [address] Cuong Ortiz DO [address] [facility] [address] [place] [id number] documented as of this encounter Visit Diagnoses Not on filedocumented in this encounter Care Teams Assistant Media Buyer Relationship Specialty Start Date End Date Unallocated, Noms Provider, [address] [place], [place] [address] PCP - General 03/04/23 Jaime Wyatt PA [address] [place], [place] [address] Referring Physician Physical Medicine and Rehabilitation 03/04/23 documented as of this encounter
--- OUTSIDE RECORDS SUMMARY | 2024-11-26 10:38 | XMS_ITS | Encounter Summary ---
Author Organization [facility] Address [address] [facility] [place] [address] Care Team Providers Care End Stapler Name Role Phone Yoselin Jaime FERMIN Unavailable Unallocated, Noms Provider Primary Care Provi kwabena Encounter Details Date Type Department Care Team (Late st Contact Info) Description 10/21/2023 Clinisync Result Encounter NOMS External Department Unsolicited Dave Ortiz, [facility] [place], [place] [address] Social History Tobacco Use Types Packs/Day Years [...] [facility] BCP OB [address] [place] [id number] Dave Ortiz [place] [facility] [place] [address] documented as of this encounter Procedures Procedure Name Priority Date/Time Associated Diagnosis Comments US OB BPP W NON-STRESS 10/21/2023 7:34 AM EDT documented in this encounter Results * US OB BPP W NON-STRESS (10/21/2023 7:34 AM EDT) Anatomical Region Laterality Modality Other 10/21/2023 7:34 AM EDT Narrative 10/21/2023 7:37 [place] [address] Ultrasound Report Signed Patient: ZULEIKA WADDELL MR#: [id number] : 1990 Acct:[id number] Age/Sex: 33 / F ADM Date: 10/19/23 Loc: FBWI Attending Dr: Dave Ortiz D.O. Ordering Physician: Dave Ortiz D.O. Date of Service: 10/19/23 Procedure(s): US OB BPP w non-stress Accession Number(s): [id number] cc: Dave Ortiz D.O.; Jaime Waddell [place] [address] Patient Name: ZULEIKA WADDELL MRN: [id number] date: 1990 Sex: F Assigned Patient Location: [facility] Current Patient Location: [facility] Accession/Order Number: [id number] Exam Date: 10/19/2023 14:53 Report Date: 10/21/2023 [...] M.D. Signed By: 0537 DD/ 3 TD/TT: Jacquard Loom Fixer: Procedure Note Radiology, Radiologist, - 10/21/2023 The [place] [id number] Ultrasound Report Signed Patient: ZULEIKA WADDELL LMR#: [id number] : 1990Acct:[id number] Age/Sex: 33 / FADM Date: 10/19/23 Loc: FBCO Attending Dr: Dave Ortiz D.O. Ordering Physician: Dave Ortiz D.O. Date of Service: 10/19/23 Procedure(s): US OB BPP w non-stress Accession Number(s): [id number] cc: Dave Ortiz D.O.; Jaime Waddell [place] [id number] Patient Name: ZULEIKA WADDELL MRN: [facility]:[id number] date: 1990 Sex: F Assigned Patient Location: [facility] Current Patient Location: [facility] Accession/Order Number: [id number] Exam Date: 10/19/2023 14:53 Report Date: 10/21/2023 [...] M.D. Signed By:10/21/23 0737 DD/ 3 TD/TT: Jacquard Loom Fixer: us Dave Ortiz DO [facility] Final Result documented in this encounter Visit Diagnoses Not on filedocumented in this encounter Care Teams End Stapler Relationship Specialty Start Date End Date Unallocated, Noms Provider, [address] [place] [address] PCP - General 03/04/23 Jaime Waddell PA [address] [place], [place] [address] Referring Physician Physical Medicine and Rehabilitation 03/04/23 documented as of this encounter
--- OUTSIDE RECORDS SUMMARY | 2024-11-26 10:38 | XMS_ITS | Encounter Summary ---
Author Organization [facility] Address [address] [facility] [place] [address] Care Team Providers Care Senior Catering Sales Manager Name Role Phone YoselinJaime FERMIN Unavailable Unallocated, Noms Provider Primary Care Provi kwabena Encounter Details Date Type Department Care Team (Late st Contact Info) Description 04/26/2023 Clinisync Result Encounter NOMS External Department Unsolicited Dave Ortiz, DO [address] [place] [address] Social History Tobacco Use Types Packs/Day Years [...] Routine [facility] BCP OB [address] [place] [address] Dave Ortiz DO [address] [place] [address] documented as of this encounter Procedures Procedure Name Priority Date/Time Associated Diagnosis Comments US OB TRANSVAGINAL 04/26/2023 8: 15 PM EST documented in this encounter Results * US OB TRANSVAGINAL (04/26/2023 8:15 PM EST) Anatomical Region Laterality Modality Other 04/26/2023 8:15 PM EST Narrative 04/26/2023 8:15 PM EST [address] [address] Ultrasound Report Signed Patient: ZULEIKA WADDELL MR#: [id number] : 1990 Acct:[id number] Age/Sex: 33 / F ADM Date: 04/26/23 Loc: US Attending Dr: Dave Ortiz D.O. Ordering Physician: Dave Ortiz D.O. Date of Service: 04/26/23 Procedure(s): US OB transvaginal Accession Number(s): [id number] cc: Dave Ortiz D.O.; Physician,Non-Staff Didi The [address] [address] Patient Name: ZULEIKA WADDELL MRN: [id number] date: 1990 Sex: F Assigned Patient Location: US Current Patient Location: US Accession/Order Number: [id number] Exam Date: 04/26/2023 09:40 Report Date: 04/26/2023 [...] M.D. Signed By: 04/26/232017 DD/ 14 TD/TT: Injection Press Operator: Procedure Note Radiology, Radiologist, MD - 04/26/2023 [place] [address] Ultrasound Report Signed Patient: ZULEIKA WADDELL LMR#: [id number] : 1990Acct:[id number] Age/Sex: 33 / FADM Date: 04/26/23 Loc: US Attending Dr: Dave Ortiz D.O. Ordering Physician: Dave Ortiz D.O. Date of Service: 04/26/23 Procedure(s): US OB transvaginal Accession Number(s): [id number] cc: Dave Ortiz D.O.; Physician,Non-Staff Didi The [place] [address] Patient Name: ZULEIKA WADDELL MRN: [id number]:[id number] date: 1990 Sex: F Assigned Patient Location: US Current Patient Location: US Accession/Order Number: [id number] Exam Date: 04/26/2023 09:40 Report Date: 04/26/2023 [...] Dawn M.D. Signed By:04/26/232017 DD/ 14 TD/TT: Injection Press Operator: us Dave Ortiz DO [facility] Final Result documented in this encounter Visit Diagnoses Not on filedocumented in this encounter Care Teams Senior Catering Sales Manager Relationship Specialty Start Date End Date Unallocated, Noms Provider, [address] [place] [address] PCP - General 03/04/23 Jaime Waddell PA [address] [place], [place] [address] Referring Physician Physical Medicine and Rehabilitation 03/04/23 documented as of this encounter
--- OUTSIDE RECORDS SUMMARY | 2024-11-26 10:38 | XMS_ITS | Encounter Summary ---
Author Organization [facility] Address [address] [facility] [place] [address] Care Team Providers Care Torpedo Specialist Name Role Phone Yoselin Jaime FERMIN Unavailable Unallocated, Noms Provider Primary Care Provi kwabena Encounter Details Date Type Department Care Team (Late st Contact Info) Description 08/28/2024 Abstract [facility] OB [address] [place] [address] Cuong Ortiz DO [facility] [place], [place] [address] Social History Tobacco Use Types Packs/[place] [address] Cuong Ortiz DO [address] [place] [address] documented as of this encounter Goals Goal Patient Goal Type Associated Problems Recent Progress Patient-Stated? Author Reminders Care Plan OB Reminders No Open Scheduling, Background documented as of this encounter Visit Diagnoses Not on filedocumented in this encounter Additional Health Concerns Active Problems Noted Date Diagnosed Date OB Reminders 06/23/2024 documented as of this encounter Care Teams Torpedo Specialist Relationship Specialty Start Date End Date Unallocated, Noms Provider, [address] [place] [address] PCP - General 03/04/23 Jaime Wyatt PA [address] [place] [address] Referring Physician Physical Medicine and Rehabilitation 03/04/23 documented as of this encounter
--- OUTSIDE RECORDS SUMMARY | 2024-11-26 10:38 | XMS_ITS | Encounter Summary ---
Author Organization [facility] Address [address] [facility] [place] [address] Care Team Providers Care Cloth Dye Range Operator Name Role Phone YoselinJaime FERMIN Unavailable Unallocated, Noms Provider Primary Care Provi kwabena Encounter Details Date Type Department Care Team (Late Contact Info) Description 11/23/2024 Bamboo flowsheet [facility] OB [address] [place] [address] Cuong Ortiz DO [facility] [place] [address] Social History Tobacco Use Types Packs/Day Years [...] [place] [address] Cuong Ortiz DO [address] [place] [address] documented as of this encounter Goals Goal Patient Goal Type Associated Problems Recent Progress Patient-Stated? Author Reminders Care Plan OB Reminders No Open Scheduling, Background documented as of this encounter Visit Diagnoses Not on filedocumented in this encounter Additional Health Concerns Active Problems Noted Date Diagnosed Date OB Reminders 06/23/2024 documented as of this encounter Care Teams Cloth Dye Range Operator Relationship Specialty Start Date End Date Unallocated, Noms Provider, [address] [place] [address] PCP - General 03/04/23 Jaime Wyatt PA [address] [address] Referring Physician Physical Medicine and Rehabilitation 03/04/23 documented as of this encounter
--- OUTSIDE RECORDS SUMMARY | 2024-11-26 10:38 | XMS_ITS | Encounter Summary ---
Author Organization [facility] Address [id number] [address] 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 Procedures US [facility] with or without consult Dave Ortiz DO Phone: tel: fax: Maternal- Medicine at [address] [address] Phone: tel: fax: Referral ID Status Reason Start Date Expiration Date V isits Requested Visits Authorized [id number] Pending Review 08/27/2024 08/27/2025 1 1 Encounter Details Date Type Department Care Team (Late st Contact Info) Description 08/27/2024 Orders Only Maternal- Medicine at [address] [address] Beronica Minaya CMA History of [...] 2:35 PM EDT) Anatomical Region Laterality Modality OB-RING STAMPER Ultrasound 08/27/2024 1:30 PM EDT Narrative 08/27/2024 5:23 PM EDT NAME: BAIRON TO : 1990 SEX: F Accession Number: [id number] ORDERING PHYSICIAN: DAVE ORTIZ REFERRING PHYSICIAN: DAVE ORTIZ Coding ----- --------- Procedures 25703: Ultrasound, uterus, real time with image documentation, and maternal evaluation plus detailed anatomic examination, transabdominal approach;single or first gestation 60658: Transvaginal Ultrasound (OB) Indication ----- --------- Screening for Anatomic Survey , Screening for cervical length , Chronic hypertension affecting , History of prior with delivery, Supervision of high risk - MOB alcohol syndrome, 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 Para 4 [id number] Current ----- --------- Cell free DNA Low [...] 1 lb 0 oz EFW by Hadlock (CBS-OT-FI-FL) Head / Face / Neck Biometry: Cephalic index 0.70 <1% Nicolaides [employer] Supervisor 6.1 mm CM 9.9 mm >99% Nicolaides [...] Head / Neck Neck. Heart / Thorax 7-xictuq-mhndyac view. Extremities / Right hand. 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 Para 4 [id number] Current ----- --------- Cell free DNA Low [...] 1 lb 0 oz EFW by Hadlock (ERM-JU-BG-FL) Head / Face / Neck Biometry: Cephalic index 0.70 <1% Nicolaides [employer] Supervisor 6.1 mm CM 9.9 mm >99% Nicolaides [...] Head / Neck Neck. Heart / Thorax 7-gorzfa-ismswne view. Extremities / Right hand. Skeleton Maternal [...] 1.01 cm. Recommendations ----- --------- Please see [facility] documentation from today. The patient is scheduled in four to six week(s) to complete anatomicsurvey. Subsequent follow up or other follow up as clinically determined byprimary OB provider unless otherwise specified by [facility]. Results forwarded to ordering provider so [...] documented as of this encounter Care Teams Patient Care Nursing Assistant Relationship Specialty Start Date End Date Jaime Wyatt, SADAF [address] [place], [place] [id number] PCP - General Physician Food Equipment Service Technician 03/18/18 documented as of this encounter
--- OUTSIDE RECORDS SUMMARY | 2024-11-26 10:38 | XMS_ITS | Clinical Summary ---
Author Organization [facility] Address [address] [place] [address] Care Team Providers Care Consumer Affairs Manager Name Role Phone Jaime Wyatt FERMIN Unavailable [...] Plus Multivitamin) 27-1 MG tabletIndication s:First trimester ([facility]) Take 1 tablet by mouth Daily 30 tablet 11 04/29/2024 Active EPINEPHrine (Epipen) 0.3 MG/0.3ML injection syringe 08/29/2024 Active Flonase Allergy Relief 50 MCG/ACT nasal spray 1 (one) time each day at the same time 06/04/2024 Active loratadine (Claritin) 10 MG tablet 1 (one) time each day at the same time 06/04/2024 Active Active Problems Problem Noted Date Diagnosed Date Third trimester ([facility]) 11/23/2024 34 weeks gestation of ([facility]) 2024 Family history of trisomy 13 09/30/2023 Estimated Date of Delivery Comme nts Yes 12/29/2024 Based on last me nstrual period of 03/24/2024 Encounters Date Type Department Care Team Description 11/24/2024 Clinisync Result Encounter [facility] External Department Unsolicited Dave Ortiz, 11/23/2024 2:20 PM EDT Routine [facility] BCP OB [address] [place] [id number] Dave Ortiz, DO Third trimester ([facility]); 34 weeks gestation of ([facility]) 11/23/2024 Bamboo flowsheet [facility] OB [address] [place] [address] Dave Ortiz, DO 11/17/2024 Clinisync Result Encounter NOMS External Department Unsolicited Dave Ortiz, DO 11/17/2024 Abstract [facility] OB [address] [place] [address] Dave Ortiz, DO 11/16/2024 Abstract [facility] OB [address] [place] [address] Dave Ortiz, DO 11/12/2024 Patient Outreach [facility] [address] [place] [address] Elena Felix LPN 11/10/2024 11:00 AM EDT Routine [facility] [place] [address] Dave Ortiz, DO 33 weeks gestation of ([facility]); Third trimester ([facility]) 11/10/2024 Clinisync Result Encounter [facility]OMS External Department Unsolicited Dave Ortiz, DO 11/10/2024 Bamboo flowsheet [facility] OB [address] [facility] [place] [address] Dave Ortiz, DO 11/06/2024 Clinisync Result Encounter NOMS External Department Unsolicited Dave Ortiz, DO 11/03/2024 Clinisync Result Encounter [facility]OMS External Department Unsolicited Dave Ortiz, DO 11/03/2024 Clinisync Result Encounter [facility]S External Department Unsolicited Dave Ortiz, DO 10/26/2024 11:20 AM EDT Routine [facility] OB [address] [facility] [place] [address] Dave Ortiz, DO 30 weeks gestation of ([facility]); Third trimester ([facility]); Nadia cisterna magna (HCC); 28 weeks gestation of ([facility]); SGA (small for gestational age) ([facility]) 10/26/2024 Clinisync Result Encounter [facility]OM[facility] External Department Unsolicited Dave Ortiz, DO 10/26/2024 Bamboo flowsheet [facility] OB [address] [place] [address] [place] [address] Dave Ortiz, DO 10/20/2024 Telephone [facility] OB [address] [place] [address] [place] [address] Dave Ortiz, DO 10/19/2024 11:30 AM EDT Ancillary Procedure [facility] OB [address] [place] [address] [place] [address] Nadia cisterna magna (HCC) 10/18/2024 Travel 10/12/2024 9:20 AM EDT Routine [facility] OB [address] [place] [address] [place] [address] Dave Ortiz, DO Third trimester ([facility]); 28 weeks gestation of ([facility]); Nadia cisterna magna (HCC) 10/12/2024 Patient Outreach [facility] [address] [place] [address] Elena Felix, SOFTWARE QUALITY ANALYST 10/12/2024 Bamboo flowsheet [facility]OM[facility] [address] [place] [address] Dave Ortiz, DO 09/29/2024 Orders Only [facility] [address] [place] [address] Destinee Vazquez, SOFTWARE QUALITY ANALYST 09/29/2024 Abstract [facility] [address] [place] [address] Dave Ortiz, DO 09/10/2024 11:10 AM EDT Routine [facility]OM[facility] [address] [place] [address] Dave Ortiz, DO Well woman exam with routine gynecological exam; STD exposure; Vaginal discharge; Second trimester ([facility]); 24 weeks gestation of ([facility]) 09/10/2024 Clinisync Result Encounter NOMS External Department Unsolicited Dave Ortiz, DO 09/10/2024 External Result Encounter NOMS External Department Unsolicited Dave Ortiz, DO 09/10/2024 Bamboo flowsheet [facility] [address] [place] [address] Dave Ortiz, DO 09/08/2024 Patient Outreach [facility] [place] [address] [place] [address] Elena Felix, SOFTWARE QUALITY ANALYST 09/07/2024 Abstract [facility] [address] [place] [address] Dave Ortiz, DO 09/07/2024 Clinisync Result Encounter NOMS External Department Unsolicited Dave Ortiz, DO 09/07/[address] Telephone [facility] [address] [place] [address] Dave Ortiz, DO 08/28/2024 Abstract [facility] [address] [place] [address] Dave Ortiz DO from Last 3 Months Social History Tobacco [...] OB [address] [place] [address] Dave Ortiz DO [address] [facility] [place] [address] Health Maintenance Due Date Last Done Comments Influenza Vaccine (Season Ended) 2025 05/19/20 13, 04/29/2012 Pap Smear 09/11/2027 09/10/2024, 10/24/2022 Cervical Cancer Screening 10/25/2027 HPV/Cotest 10/25/2027 Goals Goal Patient Goal Type Associated Problems Recent Progress Patient-Stated? Author Reminders Care Plan OB Reminders No Open Scheduling, Background Procedures Procedure Name Priority Date/Time Associated Diagnosis Comments US OB BPP W NON-STRESS 11/24/2024 9:42 AM EDT POCT URINALYSIS DIPSTICK Routine 11/23/2024 2:58 PM EDT Third trimester ([facility]) US OB BPP W NON-STRESS 11/17/2024 10:17 AM EDT POCT URINALYSIS DIPSTICK Routine 11/10/2024 10:32 AM EDT 33 weeks gestation of ([facility]) Third trimester ([facility]) US OB BPP W NON-STRESS 11/10/2024 10:08 AM EDT US OB BPP W NON-STRESS 11/06/2024 2:00 PM EDT US OB GROWTH 11/03/2024 4:34 PM EDT US OB BPP W NON-STRESS 11/03/2024 3:31 PM EDT ALL CBC WITH AUTO DIFF Routine 12:52 PM EDT [facility] CMP (CMP) (FOR REMOTE [facility] USE) Routine 10/26/2024 12:52 PM EDT POCT URINALYSIS DIPSTICK Routine 10/26/2024 11:52 AM EDT 30 weeks gestation of ([facility]) Third trimester ([facility]) US OB FOLLOW UP TRANSABDOMINAL APPROACH Routine 10/19/2024 11:56 AM EDT Nadia cisterna magna (HCC) POCT URINALYSIS DIPSTICK Routine 10/12/2024 9:39 AM EDT Third trimester ([facility]) POCT URINALYSIS DIPSTICK Routine 09/14/2024 10:18 AM EDT 24 weeks gestation of ([facility]) RECURRENT VAGINITIS (HTRX) Routine 09/10/2024 12:23 PM EDT IGP,APTIMA HPV,AGE GDLN Routine 09/11/19 11:42 AM EDT PAP SMEAR Routine 09/10/2024 12:00 AM EDT GLUCOSE 1 HOUR Routine 09/07/2024 11:45 AM EDT ALL CBC WITH AUTO DIFF Routine 11:45 AM EDT from Last 3 Months Results * US OB BPP W NON-STRESS (11/24/2024 9:42 AM EDT) Only the most recent of5 resultswithin the time period is included. Anatomical Region Laterality Modality Other 11/24/2024 9:42 AM EDT Narrative 11/24/2024 9:45 [place] [address] Ultrasound Report Signed Patient: ZULEIKA WYATT MR#: [id number] : 1990 Acct:[id number] Age/Sex: 34 / F ADM Date: 11/24/24 Loc: [place] [address]: Dave Ortiz D.O. Ordering Physician: Dave Ortiz D.O. Date of Service: 11/24/24 Procedure(s): US OB BPP w non-stress Accession Number(s): [id number] cc: Dave Ortiz D.O.; Ramon Avila M.D. The [address] [address] Patient Name: ZULEIKA WYATT MRN: [id number] date: 1990 Sex: F Assigned Patient Location: [facility] Current Patient Location: [facility] Accession/Order Number: [id number] Exam Date: 11/24/2024 09:41 Report Date: 11/24/2024 09:42 At the request of: DAVE ORTIZ DO Procedure: US OB BPP w non-stress BIOPHYSICAL PROFILE: CLINICAL INFORMATION: Nadia cisterna magna Q04.9 COMPARISON: 11/17/2024 There is a single live intrauterine gestation in cephalic presentation. The reported gestational age is 35 weeks 0 days. The heart rate measures 134 beats per minute. FINDINGS: TONE: 1 or [...] greater than 2 cm [Y] 2/2 ANURAG: 14.6 cm. This is normal. Total score: 8/8 US/US OB BPP w non-stress IMPRESSION: NORMAL BIOPHYSICAL PROFILE. Impression dictated by: Adela Mahan M.D. 11/24/2024 9:42 AM Dictation Location: [place] [address] Electronically authenticated by: [id number] Y Date: 11/24/2024 09:42 Dictated By: Adela Mahan M.D. Signed By: 11/24/24 0945 DD/ TD/TT: Game Engineer: Procedure Note Radiology, Radiologist, - 11/24/2024 [place] [address] Ultrasound Report Signed Patient: ZULEIKA WYATT LMR#: [id number] : 1990Acct:[id number] Age/Sex: 34 / FADM Date: 11/24/24 Loc: [facility] 250-[address]: Dave Ortiz D.O. Ordering Physician: Dave Ortiz D.O. Date of Service: 11/24/24 Procedure(s): US OB BPP w non-stress Accession Number(s): [id number] cc: Dave Ortiz D.O.; Ramon Avila M.D. The [place] [address] Patient Name: ZULEIKA WYATT MRN: [facility]:[id number] date: 1990 Sex: F Assigned Patient Location: [facility] Current Patient Location: [facility] Accession/Order Number: [id number] Exam Date: 11/24/2024 09:41 Report Date: 11/24/2024 09:42 At the request of: DAVE ORTIZ DO Procedure: US OB BPP w non-stress BIOPHYSICAL PROFILE: CLINICAL INFORMATION: Nadia cisterna magna Q04.9 COMPARISON: 11/17/2024 There is a single live intrauterine gestation in cephalic presentation.The reported gestational age is 35 weeks 0 days. The heart ratemeasures 134 beats per minute. FINDINGS: TONE: 1 or [...] greater than 2 cm [Y] 2/2 ANURAG: 14.6 cm. This is normal. Total score: 8/8 US/US OB BPP w non-stress IMPRESSION: NORMAL BIOPHYSICAL PROFILE. Impression dictated by: Adela Mahan M.D. 11/24/2024 9:42 AM Dictation Location: [place] [address] Electronically authenticated by: [id number] Y Date: 509:42 Dictated By: Adela Mahan M.D. Signed By:11/24/24 0945 DD/ TD/TT: Game Engineer: Dave Ortiz DO [facility] IMAG[facility] Final Result [...] - Positive Urine 11/23/2024 2:58 PM EDT Dave Ortiz DO POINT OF CARE TEST ENTER/EDIT OR DERABLES Final Result * US OB GROWTH (11/03/2024 4:34 PM EDT) Anatomical Region Laterality Modality Other 11/03/2024 4:34 PM EDT Narrative 11/03/2024 4:36 [place] [address] Ultrasound Report Signed Patient: ZULEIKA WYATT MR#: [id number] : 1990 Acct:[id number] Age/Sex: 34 / F ADM Date: 11/03/24 Loc: US Attending Dr: Dave Ortiz D.O. Ordering Physician: Dave Ortiz D.O. Date of Service: 11/03/24 Procedure(s): US OB growth Accession Number(s): [id number] cc: Dave Ortiz D.O.; Ramon Avila M.D. [place] [id number] Patient Name: ZULEIKA WYATT MRN: [id number] date: 1990 Sex: F Assigned Patient Location: US Current Patient Location: Accession/Order Number: [id number] Exam Date: 11/03/2024 16:30 Report Date: 11/03/2024 [...] Boyce M.D. 11/03/2024 4:34 PM [facility]ictation [facility] Electronically authenticated by: [id number] Y Date: 11/03/2024 16:34 Dictated By: Aaron Boyce D.O. Signed By: 11/03/241635 DD/ 33 TD/TT: Game Engineer: Procedure Note Radiology, Radiologist, MD - 11/03/2024 [place] [address] Ultrasound Report Signed Patient: ZULEIKA WYATT LMR#: [id number] : 1990Acct:[id number] Age/Sex: 34 / FADM Date: 11/03/24 Loc: US Attending Dr: Dave Ortiz D.O. Ordering Physician: Dave Ortiz D.O. Date of Service: 11/03/24 Procedure(s): US OB growth Accession Number(s): [id number] cc: Dave Ortiz D.O.; Ramon Avila M.D. The [place] [address] Patient Name: ZULEIKA WYATT MRN: [id number] date: 1990 Sex: F Assigned Patient Location: US Current Patient Location: Accession/Order Number: [id number] Exam Date: 11/03/2024 16:30 Report Date: 11/03/2024 [...] Boyce M.D. 11/03/2024 4:34 PM Dictation Location: [facility] Electronically authenticated by: [id number] Y Date: 6:34 Dictated By: Aaron Boyce D.O. Signed By:11/03/241635 DD/ 33 TD/TT: Game Engineer: us Dave Diana DO [facility] IMAG[facility] Final Result * (ABNORMAL) [facility] CMP (CMP) (FOR REMOTE [facility] USE) (10/26/2024 12:52 PM EDT) SODIUM 134(L) 136 - 145 mmol/L [facility] POTASSIUM 4.1 3.5 - 5.1 mmol/L [facility] CHLORIDE 102 98 - 107 mmol/L [facility] CARBON DIOXIDE 24.0 21.0 - 32.0 mmol/L [facility] ANION GAP 12.1 [facility] GLUCOSE 82 74 - 106 mg/dL [facility] BLOOD UREA NITROGEN 6.0(L) 7.0 - 18.0 mg/dL [facility] CREATININE 0.55 0.55 - 1.02 mg/dL [facility] EGFR-AF GERMAN >60 >=60 mL/min/1. 73m 2 [facility] EGFR-NON AF GERMAN >60 >=60 mL/min/1. 73m 2 [facility] BUN [...] us Dave Diana DO [facility] Final Result [facility] * (ABNORMAL) ALL CBC WITH AUTO DIFF [...] us Dave Diana DO [facility] Final Result [facility] * US OB follow up transabdominal approach [...] II, MD, PHD at 21-Oct-2024 08:41:57 AM [facility] Procedure Note Eloisa Gonzalez MD - [...] signed by ELOISA GONZALEZ II, MD, PHD [id number] 08:41:57 AM [facility] us Dave Diana DO IMG OB US PROCEDURES Final Resul t * RECURRENT VAGINITIS (HTRX) (09/10/2024 12:23 PM EDT) [facility] ATOPOBIUM VAGINAE 0.000 19.961 - 24.689 ppm 09/11/2024 6:30 AM EDT [facility] ATOPOBIUM VAGINAE Not Detected 19.961 - 24.689 ppm 09/11/2024 6:30 AM EDT [facility] BVAB 2,3 (BACTERIAL VAGINOSIS ASSOCIATED BACTERIA 2, 3); MOBILUNCUS SPP 0.000 19.961 - 24.689 ppm 09/11/2024 6:30 AM EDT [facility] BVAB 2,3 (BACTERIAL VAGINOSIS ASSOCIATED BACTERIA 2, 3); MOBILUNCUS SPP Not Detected 19.961 - 24.689 ppm 09/11/2024 6:30 AM EDT [facility] JEREMY ALBICANS, PARAPSILOSIS, TROPICALIS 0.000 19.961 - 30.770 ppm 09/11/2024 6:30 AM EDT [facility] JEREMY ALBICANS, PARAPSILOSIS, TROPICALIS Not Detected 19.961 - 30.770 ppm 09/11/2024 6:30 AM EDT [facility] JEREMY GLABRATA 0.000 23.000 - 32.138 ppm 09/11/2024 6:30 AM EDT [facility] JEREMY GLABRATA Not Detected 23.000 - 32.138 ppm 09/11/2024 6:30 AM EDT [facility] JEREMY KRUSEI 0.000 23.000 - 32.271 ppm 09/11/2024 6:30 AM EDT [facility] JEREMY KRUSEI Not Detected 23.000 - 32.271 ppm 09/11/2024 6:30 AM EDT [facility] CHLAMYDIA TRACHOMATIS 0.000 23.000 - 31.467 ppm 09/11/2024 6:30 AM EDT [facility] CHLAMYDIA TRACHOMATIS Not Detected 23.000 - 31.467 ppm 09/11/2024 6:30 AM EDT [facility] GARDNERELLA VAGINALIS 0.000 19.961 - 24.689 ppm 09/11/2024 6:30 AM EDT [facility] GARDNERELLA VAGINALIS Not Detected 19.961 - 24.689 ppm 09/11/2024 6:30 AM EDT [facility] MEGASPHAERA (TYPES 1, 2) 0.000 19.961 - 24.689 ppm 09/11/2024 6:30 AM EDT [facility] MEGASPHAERA (TYPES 1, 2) Not Detected 19.961 - 24.689 ppm 09/11/2024 6:30 AM EDT [facility] NEISSERIA GONORRHOEAE 0.000 23.000 - 32.117 ppm 09/11/2024 6:30 AM EDT [facility] NEISSERIA GONORRHOEAE Not Detected 23.000 - 32.117 ppm 09/11/2024 6:30 AM EDT [facility] TRICHOMONAS VAGINALIS 0.000 23.000 - 32.119 ppm 09/11/2024 6:30 AM EDT [facility] TRICHOMONAS VAGINALIS Not Detected 23.000 - 32.119 ppm 09/11/2024 6:30 AM EDT [facility] MYCOPLASMA GENITALIUM 0.000 19.961 - 24.689 ppm 09/11/2024 6:30 AM EDT [facility] MYCOPLASMA GENITALIUM Not Detected 19.961 - 24.689 ppm 09/11/2024 6:30 AM EDT [facility] Tissue 09/10/2024 12:2 3 PM EDT 09/11/2024 1:40 AM EDT us Dave Ortiz DO LAB BLOOD ORDERABLES Final Resul t [facility] [address] [place] [address] * IGP,APTIMA HPV,AGE GDLN (09/10/2024 11:42 AM EDT) Pathologist [facility] AGE GDLN ACOG TESTING Note . [facility] Comment: TESTS RESULT FLAG UNITS REF RANGE LAB Clinician Provided Cytology Information Source.............[employer] Other.............. No. of containers..01 ThinPrep Vial Age Chelseao ACLEVI Krista... FLAG LEGEND: L-Low Normal,H-High Normal,LL-Alert Low,HH-Alert High <-Panic Low,>-Panic High,A-Abnormal,AA-Critical Abnormal Performed at: 01 =G [address] [address] Joann Denney MD, IGP, APTIMA HPV, RFX 16/18,45 Note . [facility] Comment: TESTS RESULT FLAG UNITS REF RANGE LAB DIAGNOSIS: 02 NEGATIVE FOR INTRAEPITHELIAL LESION OR MALIGNANCY. Specimen adequacy: 02 Satisfactory for evaluation. No endocervical component is identified. An endocervical component is not commonly seen in the patient. Performed by: 02 Mindy Martel Ribbon Tier (ASCP) . 02 Note: Note 02 The [...] <-Panic Low,>-Panic High,A-Abnormal,AA-Critical Abnormal Performed at: [address] [address] Joann Denney MD, HPV APTIMA Negative Negative [facility] Comment: This nucleic acid amplification test detects fourteen high- risk HPV types (16,18,31,33,35,39,45,51,52,56,58,59,66,68) without differentiation. Performed at: =[address] [id number] [employer] Machine Adjuster: Joann Denney MD, Phone: [phone] Performed at: [address] [id number] [employer] Adjuster: Joann Denney MD, Phone: [phone] 09/10/2024 11:4 2 AM EDT 09/10/2024 3:18 PM EDT Narrative [facility]IS[facility] - 09/14/2024 12:08 PM EDT [facility] us Dave Diana DO LAB BLOOD ORDERABLES Final Resul t [facility] TB * Pap Smear (09/10/2024 12:00 AM EDT) Swab Cervical swab / Unknown us [facility] Bcp Ob Idana Nurse LAB CYTOLOGY ORDERABLES Final Result EXTERNAL LAB * GLUCOSE 1 HOUR (09/07/2024 11:45 AM EDT) GLUCOSE 1 HOUR 102 <130 mg/dL [facility] 09/07/2024 11:4 5 AM EDT 09/07/2024 11:55 AM EDT Narrative [facility] - 09/07/2024 12:52 PM EDT us Dave Diana DO LAB BLOOD ORDERABLES Final Resul t Performing Organization Address City/[facility]/ZIP Co de Phone Number [facility] TB from Last 3 Months Additional Health Concerns Active Problems Noted Date Diagnosed Date OB Reminders 06/23/2024 Insurance * Guarantor: Zuleika Wyatt Account Type Relation to Patient Date of Phone Billing Address Personal/Family Self 1990 [address] [facility] [address] [address] [place] [address] [employer] [place] Member Subscriber Plan / Payer (Ef fective 2022-Present) Name:Zuleika Wyatt Relation to Subscriber:Self Name:Zuleika Wyatt Payer ID:Not on file Group ID:[id number] Type:Not on file Address: [facility] [id number] [place] [id number] Care Teams Consumer Affairs Manager Relationship Specialty Start Date End Date Unallocated, Beatrices MD Prakash [address] [place] [address] PCP - General 03/04/23 Jaime Wyatt PA [address] [place] [address] Referring Physician Physical Medicine and Rehabilitation 03/04/23
--- OUTSIDE RECORDS SUMMARY | 2024-11-26 10:38 | XMS_ITS | Encounter Summary ---
Author Organization [facility] Address [address] [place] [address] Care Team Providers Care Air Brake Man Name Role Phone Yoselin Jaime FERMIN Unavailable Unallocated, Noms Provider Primary Care Provi kwabena Encounter Details Date Type Department Care Team (Late st Contact Info) Description 10/30/2023 Clinisync Result Encounter NOMS External Department Unsolicited Dave Ortiz, DO [facility] [place], [place] [address] Social History Tobacco Use Types Packs/Day Years [...] [facility] BCP OB [address] [place] [id number] Dave Ortiz DO [facility] [place] [address] documented as of this encounter Procedures Procedure Name Priority Date/Time Associated Diagnosis Comments US OB BPP W NON-STRESS 10/30/2023 3:23 PM EDT documented in this encounter Results * US OB BPP W NON-STRESS (10/30/2023 3:23 PM EDT) Anatomical Region Laterality Modality Other 10/30/2023 3:23 PM EDT Narrative 10/30/2023 3:25 [place] [address] Ultrasound Report Signed Patient: ZULEIKA WADDELL MR#: [id number] : 1990 Acct:[id number] Age/Sex: 33 / F ADM Date: 10/30/23 Loc: US Attending Dr: Dave Ortiz D.O. Ordering Physician: Dave Ortiz D.O. Date of Service: 10/30/23 Procedure(s): US OB BPP w non-stress Accession Number(s): [id number] cc: Dave Ortiz D.O.; Jaime Waddell [place] [address] Patient Name: ZULEIKA WADDELL MRN: [id number] date: 1990 Sex: F Assigned Patient Location: [facility] Current Patient Location: Accession/Order Number: [id number] Exam Date: 10/30/2023 14:45 Report Date: 10/30/2023 [...] Signed By: 10/30/23 1525 DD/ 22 TD/TT: Collections Manager: Procedure Note Radiology, Radiologist, - 10/30/2023 [place] [address] Ultrasound Report Signed Patient: ZULEIKA WADDELL LMR#: [id number] : 1990Acct:[id number] Age/Sex: 33 / FADM Date: 10/30/23 Loc: US Attending Dr: Dave Ortiz D.O. Ordering Physician: Dave Ortiz D.O. Date of Service: 10/30/23 Procedure(s): US OB BPP w non-stress Accession Number(s): [id number] cc: Dave Ortiz D.O.; Jaime Waddell The [place] [address] Patient Name: ZULEIKA WADDELL MRN: [id number] date: 1990 Sex: F Assigned Patient Location: [facility] Current Patient Location: Accession/Order Number: [id number] Exam Date: 10/30/2023 14:45 Report Date: 10/30/2023 [...] M.D. Signed By:10/30/23 152 DD/ 22 TD/TT: Collections Manager: us Dave Diana DO [facility] Final Result documented in this encounter Visit Diagnoses Not on filedocumented in this encounter Care Teams Air Brake Man Relationship Specialty Start Date End Date Unallocated, Noms Provider, [address] [place] [address] PCP - General 03/04/23 Jaime Waddell PA [address] [place] [address] Referring Physician Physical Medicine and Rehabilitation 03/04/23 documented as of this encounter
--- OUTSIDE RECORDS SUMMARY | 2024-11-26 10:38 | XMS_ITS | Encounter Summary ---
Author Organization [facility] Address [address] [facility] [place] [address] Care Team Providers Care Sterilization Tech Name Role Phone Yoselin Jaime FERMIN Unavailable Unallocated, Noms Provider Primary Care Provi kwabena Encounter Details Date Type Department Care Team (Late st Contact Info) Description 06/30/2024 Abstract [facility] BCP OB [address] [place] [address] Cuong Ortiz, DO [address] [place], [place] [address] Social History Tobacco Use Types Packs/Day Years [...] Routine [facility] BCP OB [address] [place] [address] Cuong Ortiz, DO [address] [place], [facility] documented as of this encounter Goals Goal Patient Goal Type Associated Problems Recent Progress Patient-Stated? Author Reminders Care Plan OB Reminders No Open Scheduling, Background documented as of this encounter Visit Diagnoses Not on filedocumented in this encounter Additional Health Concerns Active Problems Noted Date Diagnosed Date OB Reminders 06/23/2024 documented as of this encounter Care Teams Sterilization Tech Relationship Specialty Start Date End Date Unallocated, Noms Provider, [address] [place], [place] [address] PCP - General 03/04/23 Jaime Wyatt PA [address] [place] [address] Referring Physician Physical Medicine and Rehabilitation 03/04/23 documented as of this encounter
--- OUTSIDE RECORDS SUMMARY | 2024-11-26 10:38 | XMS_ITS | Encounter Summary ---
Author Organization [facility] Address [address] [facility] [place] [address] Care Team Providers Care Feeder Loader Name Role Phone Yoselin Jaime FERMIN Unavailable Unallocated, Noms Provider Primary Care Provi kwabena Encounter Details Date Type Department Care Team (Late st Contact Info) Description 06/26/2024 Abstract [facility] [address] [place] [address] Cuong Ortiz, DO [address], [place] [address] Social History Tobacco Use Types Packs/Day Years [...] Routine [facility] B[facility] OB [address] [place] [address] Cuong Ortiz, DO [address], [facility] documented as of this encounter Goals Goal Patient Goal Type Associated Problems Recent Progress Patient-Stated? Author Reminders Care Plan OB Reminders No Open Scheduling, Background documented as of this encounter Visit Diagnoses Not on filedocumented in this encounter Additional Health Concerns Active Problems Noted Date Diagnosed Date OB Reminders 06/23/2024 documented as of this encounter Care Teams Feeder Loader Relationship Specialty Start Date End Date Unallocated, Noms Provider, [address] [place], [place] [id number] PCP - General 03/04/23 Jaime Wyatt PA [address] [place] [address] Referring Physician Physical Medicine and Rehabilitation 03/04/23 documented as of this encounter
--- OUTSIDE RECORDS SUMMARY | 2024-11-26 10:38 | XMS_ITS | Encounter Summary ---
Author Organization [facility] Address [address] [facility] [place] [address] Care Team Providers Care Filler Room Attendant Name Role Phone Yoselin Jaime FERMIN Unavailable Unallocated, Noms Provider Primary Care Provi kwabena Encounter Details Date Type Department Care Team (Late st Contact Info) Description 10/10/2023 Clinisync Result Encounter [facility] External Department Unsolicited Dave Ortiz, [facility] Uri [place], [place] [address] Social History Tobacco Use Types Packs/Day Years [...] Routine [facility] BCP OB [address] [place] [address] Dave Ortiz [place] [address] documented as of this encounter Procedures Procedure Name Priority Date/Time Associated Diagnosis Comments US OB BPP W NON-STRESS 10/10/2023 7:13 AM EDT documented in this encounter Results * US OB BPP W NON-STRESS (10/10/2023 7:13 AM EDT) Anatomical Region Laterality Modality Other 10/10/2023 7:13 AM EDT Narrative 10/10/2023 7:15 [place] [address] Ultrasound Report Signed Patient: ZULEIKA WADDELL MR#: [id number] : 1990 Acct:[id number] Age/Sex: 33 / F ADM Date: 10/09/23 Loc: US Attending Dr: Dave Ortiz D.O. Ordering Physician: Dave Ortiz D.O. Date of Service: 10/09/23 Procedure(s): US OB BPP w non-stress Accession Number(s): [id number] cc: Dave Ortiz D.O.; Jaime Waddell [place] [address] Patient Name: ZULEIKA WADDELL MRN: [id number] date: 1990 Sex: F Assigned Patient Location: US Current Patient Location: US Accession/Order Number: [id number] Exam Date: 10/09/2023 15:20 Report Date: 10/10/2023 [...] M.D. Signed By: 04/714 DD/ 2 TD/TT: Transaction Advisory Services Manager: Procedure Note Radiology, Radiologist, - 10/10/2023 [place] [address] Ultrasound Report Signed Patient: ZULEIKA WADDELL LMR#: [id number] : 1990Acct:[id number] Age/Sex: 33 / FADM Date: 10/09/23 Loc: US Attending Dr: Dave Ortiz D.O. Ordering Physician: Dave Ortiz D.O. Date of Service: 10/09/23 Procedure(s): US OB BPP w non-stress Accession Number(s): [id number] cc: Dave Ortiz D.O.; Jaime Waddell [place] [id number] Patient Name: ZULEIKA WADDELL MRN: [id number] date: 1990 Sex: F Assigned Patient Location: US Current Patient Location: US Accession/Order Number: [id number] Exam Date: 10/09/2023 15:20 Report Date: 10/10/2023 [...] Dawn M.D. Signed By:10/10/23714 DD/ 2 TD/TT: Transaction Advisory Services Manager: us Dave Ortiz DO [facility] Final Result documented in this encounter Visit Diagnoses Not on filedocumented in this encounter Care Teams Filler Room Attendant Relationship Specialty Start Date End Date Unallocated, Noms Provider, [address] [place] [address] PCP - General 03/04/23 Jaime Waddell PA [address] [place] [address] Referring Physician Physical Medicine and Rehabilitation 03/04/23 documented as of this encounter
--- OUTSIDE RECORDS SUMMARY | 2024-11-26 10:38 | XMS_ITS | Encounter Summary ---
Author Organization [facility] Address [address] [facility] [place] [address] Care Team Providers Care Physician Office Clin Asst Name Role Phone Yoselin Jaime FERMIN Unavailable Unallocated, Noms Provider Primary Care Provi kwabena Encounter Details Date Type Department Care Team (Late st Contact Info) Description 06/06/2023 Abstract [facility] BCP OB [address] [place] [address] Destinee Vazquez LPN [address] [employer] [facility] Derek [place] [address] Social History Tobacco Use Types Packs/Day Years [...] PM EDT Routine [facility] BCP OB [address] [place] [address] Cuong Ortiz DO [address] [facility] [address] [place] [address] documented as of this encounter Visit Diagnoses Not on filedocumented in this encounter Care Teams Physician Office Clin Asst Relationship Specialty Start Date End Date Unallocated, Noms Provider, [address] [place], [place] [phone] PCP - General 03/04/23 Jaime Wyatt PA [address] [place], [place] [phone] Referring Physician Physical Medicine and Rehabilitation 03/04/23 documented as of this encounter
--- OUTSIDE RECORDS SUMMARY | 2024-11-26 10:39 | XMS_ITS | Clinical Summary ---
Author Organization [facility] Address [address] [place] [address] Care Team Providers Care Poultry Breeder Name Role Phone Unavailable Primary Care Provider [...] Billing Address Personal/Family Self 1990 na (Home) [address] [place] [address] [place] [employer] [place]
--- OUTSIDE RECORDS SUMMARY | 2024-11-26 10:39 | XMS_ITS | Encounter Summary ---
Author Organization [employer] [facility] tem Address [id number] [address] [place] [address] Care Team Providers Care Condominium Property Manager Name Role Phone Jaime Wyatt PA-C [...] documented as of this encounter Care Teams Condominium Property Manager Relationship Specialty Start Date End Date Jaime Wyatt PA-C [address] [place] [address] PCP - General Physician Pigment Grinder 03/18/18 documented as of this encounter
--- OUTSIDE RECORDS SUMMARY | 2024-11-26 10:39 | XMS_ITS | Encounter Summary ---
Author Organization [facility] Address [address] [facility] [place] [address] Care Team Providers Care Editorial Project Manager Name Role Phone Jaime Wyatt [place] Unavailable Unallocated, Noms Provider Primary Care Provi kwabena Encounter Details Date Type Department Care Team (Late st Contact Info) Description 12/19/[address] [facility] [address] [facility] [address] [place] [phone] Arden Orozco, DO [address] [facility] [address] [place] [address] Social History Tobacco Use Types [...] Routine [facility] BCP OB [address] [place] [address] Cuong Ortiz DO [address] [place] [address] documented as of this encounter Visit Diagnoses Not on filedocumented in this encounter Care Teams Editorial Project Manager Relationship Specialty Start Date End Date Unallocated, Noms Provider, MD [address] [address] PCP - General 03/04/23 Jaime Wyatt PA [address] [place] [address] Referring Physician Physical Medicine and Rehabilitation 03/04/23 documented as of this encounter
--- OUTSIDE RECORDS SUMMARY | 2024-11-26 10:39 | XMS_ITS | Encounter Summary ---
Author Organization [facility] Address [address] [facility] [place] [address] Care Team Providers Care Supervisor Car And Yard Name Role Phone Yoselin Jaime FERMIN Unavailable Unallocated, Noms Provider Primary Care Provi kwabena Encounter Details Date Type Department Care Team (Late st Contact Info) Description 09/29/2024 Abstract [facility] OB [address] [place] [address] Cuong Ortiz DO [facility] [address], [place] [address] Social History Tobacco Use Types Packs/Day Years [...] Routine [facility] BCP OB [address] [place] [address] Cuong Ortiz DO [address] [place] [address] documented as of this encounter Goals Goal Patient Goal Type Associated Problems Recent Progress Patient-Stated? Author Reminders Care Plan OB Reminders No Open Scheduling, Background documented as of this encounter Visit Diagnoses Not on filedocumented in this encounter Additional Health Concerns Active Problems Noted Date Diagnosed Date OB Reminders 06/23/2024 documented as of this encounter Care Teams Supervisor Car And Yard Relationship Specialty Start Date End Date Unallocated, Noms Provider, [address] [place] [address] PCP - General 03/04/23 Jaime Wyatt PA [address] [place] [address] Referring Physician Physical Medicine and Rehabilitation 03/04/23 documented as of this encounter
--- OUTSIDE RECORDS SUMMARY | 2024-11-26 10:39 | XMS_ITS | Encounter Summary ---
Author Organization [facility] Address [address] [facility] [place] [address] Care Team Providers Care Dj Instructor Name Role Phone Yoselin Jaime FERMIN Unavailable Unallocated, Noms Provider Primary Care Provi kwabena Encounter Details Date Type Department Care Team (Late st Contact Info) Description 11/17/2024 Abstract [facility] OB [address] [place] [address] Cuong Ortiz DO [facility] [address], [place] [address] Social History Tobacco Use Types Packs/Day Years [...] Routine [facility] BCP OB [address] [place] [address] Cuong Ortiz DO [address] [place] [address] [place] [address] documented as of this encounter Goals Goal Patient Goal Type Associated Problems Recent Progress Patient-Stated? Author Reminders Care Plan OB Reminders No Open Scheduling, Background documented as of this encounter Visit Diagnoses Not on filedocumented in this encounter Additional Health Concerns Active Problems Noted Date Diagnosed Date OB Reminders 06/23/2024 documented as of this encounter Care Teams Dj Instructor Relationship Specialty Start Date End Date Unallocated, Noms Provider, [address] [place] [address] PCP - General 03/04/23 Jaime Wyatt PA [address] [place] [address] Referring Physician Physical Medicine and Rehabilitation 03/04/23 documented as of this encounter
--- OUTSIDE RECORDS SUMMARY | 2024-11-26 10:39 | XMS_ITS | Encounter Summary ---
Author Organization [facility] Address [address] [facility] [place] [address] Care Team Providers Care Nurse Staff Industrial Name Role Phone Jaime Wyatt PA Unavailable Unallocated, Noms Provider Primary Care Provi kwabena Encounter Details Date Type Department Care Team (Late st Contact Info) Description 11/12/2024 Patient Outreach [facility] [address] [place] [address] Elena Felix LPN Social History Tobacco Use [...] PM EDT Routine [facility] BCP OB [address] [place] [address] Cuong Ortiz, [address] [place] [address] documented as of this encounter Goals Goal Patient Goal Type Associated Problems Recent Progress Patient-Stated? Author Reminders Care Plan OB Reminders No Open Scheduling, Background documented as of this encounter Visit Diagnoses Not on filedocumented in this encounter Additional Health Concerns Active Problems Noted Date Diagnosed Date OB Reminders 06/23/2024 documented as of this encounter Care Teams Nurse Staff Industrial Relationship Specialty Start Date End Date Unallocated, Noms Provider, [address] [place], [place] [phone] PCP - General 03/04/23 Jaime Wyatt PA [address] [place] [address] Referring Physician Physical Medicine and Rehabilitation 03/04/23 documented as of this encounter
--- OUTSIDE RECORDS SUMMARY | 2024-11-26 10:39 | XMS_ITS ---
Author Organization [facility] Address [address] [facility] [place] [address] Care Team Providers Care Agricultural Equipment Operator Name Role Phone Jaime Wyatt Unavailable Unallocated, Noms Provider Primary Care Provi kwabena [facility] ([facility]) Status:Enrolled (Active) Start date:08/11/2024 Enrollment date:08/12/2024 Enrollment reason:Identified by Health Plan Case Team Name Relationship Phone Elena Felix LPN(Responsible Staff) Licensed Prac tical Nurse Continued Care and Services Coordination
--- OUTSIDE RECORDS SUMMARY | 2024-11-26 10:39 | XMS_ITS | Encounter Summary ---
Author Organization [facility] tem Address [id number] [address] 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
--- OUTSIDE RECORDS SUMMARY | 2024-11-26 10:39 | XMS_ITS | Encounter Summary ---
Author Organization [facility] Address [address] [facility] [place] [address] Care Team Providers Care Oyster Grower Name Role Phone WyattJaime FERMIN Unavailable Unallocated, Noms Provider Primary Care Provi kwabena Encounter Details Date Type Department Care Team (Late st Contact Info) Description 09/29/2024 Orders Only [facility] OB [address] [place] [address] Destinee Vazquez LPN [address] [employer] [facility] [place] [address] Social History Tobacco Use Types Packs/Day Years [...] PM EDT Routine [facility] BCP OB [address] [address] Cuong Ortiz, DO [address] [place] [address] documented as of this encounter Goals Goal [...] documented as of this encounter Care Teams Oyster Grower Relationship Specialty Start Date End Date Unallocated, Noms Provider, [address] [place] [address] PCP - General 03/04/23 Jaime Wyatt PA [address] [place], [place] [address] Referring Physician Physical Medicine and Rehabilitation 03/04/23 documented as of this encounter
--- OUTSIDE RECORDS SUMMARY | 2024-11-26 10:39 | XMS_ITS | Encounter Summary ---
Author Organization [facility] Address [address] [facility] [place] [address] Care Team Providers Care Rn Liaison Name Role Phone YoselinJaime FERMIN Unavailable Unallocated, Noms Provider Primary Care Provi kwabena Encounter Details Date Type Department Care Team (Late st Contact Info) Description 11/24/2024 Clinisync Result Encounter N[facility] External Department Unsolicited Dave Ortiz, DO [address] [place] [address] Social History Tobacco Use Types Packs/Day Years [...] Description 11/30/2024 1:00 PM EDT Routine [facility] OB [address] [place] [address] Dave Ortiz, DO [address] [place] [address] [phone] (work) documented as of this encounter Goals Goal Patient Goal Type Associated Problems Recent Progress Patient-Stated? Author Reminders Care Plan OB Reminders No Open Scheduling, Background documented as of this encounter Procedures Procedure Name Priority Date/Time Associated Diagnosis Comments US OB BPP W NON-STRESS 11/24/2024 9:42 AM EDT documented in this encounter Results * US OB BPP W NON-STRESS (11/24/2024 9:42 AM EDT) Anatomical Region Laterality Modality Other 11/24/2024 9:42 AM EDT Narrative 11/24/2024 9:45 [place] [address] Ultrasound Report Signed Patient: ZULEIKA WADDELL MR#: [id number] : 1990 Acct:[id number] Age/Sex: 34 / F ADM Date: 11/24/24 Loc: [facility] 250-[address]: Dave Ortiz D.O. Ordering Physician: Dave Ortiz D.O. Date of Service: 11/24/24 Procedure(s): US OB BPP w non-stress Accession Number(s): [id number] cc: Dave Ortiz D.O.; Ramon Avila M.D. [address] [address] Patient Name: ZULEIKA WADDELL MRN: [facility]:[id number] date: 1990 Sex: F Assigned Patient Location: [facility] Current Patient Location: [facility] Accession/Order Number: [id number] Exam Date: 11/24/2024 09:41 Report Date: 11/24/2024 09:42 At the request of: DAVE ORTIZ DO Procedure: US OB BPP w non-stress BIOPHYSICAL PROFILE: CLINICAL INFORMATION: Christiano cisterna magna Q04.9 COMPARISON: 11/17/2024 There is [...] Mahan M.D. 11/24/2024 9:42 AM Dictation Location: [place] [address] Electronically authenticated by: [id number] Y Date: 11/24/2024 09:42 Dictated By: Adela Mahan M.D. Signed By: 11/24/24944 DD/ 1 TD/TT: Fuel Retrofitting Technician: Procedure Note Radiology, Radiologist, MD - 11/24/2024 [place] [address] Ultrasound Report Signed Patient: ZULEIKA WADDELL LMR#: [id number] : 1990Acct:[id number] Age/Sex: 34 / FADM Date: 11/24/24 Loc: [facility] 250-[address]: Dave Ortiz D.O. Ordering Physician: Dave Ortiz D.O. Date of Service: 11/24/24 Procedure(s): US OB BPP w non-stress Accession Number(s): [id number] cc: Dave Ortiz D.O.; Ramon Avila M.D. The [place] [id number] Patient Name: ZULEIKA WADDELL MRN: [id number] date: 1990 Sex: F Assigned Patient Location: [facility] Current Patient Location: [facility] Accession/Order Number: [id number] Exam Date: 11/24/2024 09:41 Report Date: 11/24/2024 09:42 At the request of: DAVE ORTIZ DO Procedure: US OB BPP w non-stress BIOPHYSICAL PROFILE: CLINICAL INFORMATION: Christiano cisterna magna Q04.9 COMPARISON: 11/17/2024 There is [...] Mahan M.D. 11/24/2024 9:42 AM Dictation Location: [place] [address] Electronically authenticated by: [id number] Y Date: 509:42 Dictated By: Adela Mahan M.D. Signed By:11/24/2445 DD/ TD/TT: Fuel Retrofitting Technician: Dave Ortiz DO [facility] Final Result documented in this encounter Visit Diagnoses Not on filedocumented in this encounter Additional Health Concerns Active Problems Noted Date Diagnosed Date OB Reminders 06/23/2024 documented as of this encounter Care Teams Rn Liaison Relationship Specialty Start Date End Date Unallocated, Noms Provider, [address] [place] [address] PCP - General 03/04/23 Jaime Waddell PA [address] [place] [address] Referring Physician Physical Medicine and Rehabilitation 03/04/23 documented as of this encounter
--- OUTSIDE RECORDS SUMMARY | 2024-11-26 10:39 | XMS_ITS | Encounter Summary ---
Author Organization [facility] tem Address [id number] [address] [place] [address] Care Team Providers Care Electric Freight Car Operator Name Role Phone Jaime Wyatt PA-C Primary Care Provider [phone] Encounter Details Date Type Department Care Team (Late st Contact Info) Description 03/26/2022 Telephone Maternal- Medicine at [facility] [address] [place] [phone] Tamika Branch LPN Social History Tobacco Use [...] on filedocumented in this encounter Care Teams Electric Freight Car Operator Relationship Specialty Start Date End Date Jaime Wyatt, SADAF [address] [place], [place] [phone] PCP - General Physician Oil Transport Driver 03/18/18 documented as of this encounter
== END 2024-11-26 12:15 | disposition home or self-care (01) ==
LOC: FBC 10:36
PROVIDERS: Admitting Provider Obstetrics & Gynecology; PCP Family Medicine; Visit Provider Obstetrics & Gynecology
DX: O99.891 Other specified diseases and conditions complicating pregnancy (principal); Z3A.00 Weeks of gestation of pregnancy not specified
CPT/HCPCS: 76815; 76818; G0378; G0379

== ENCOUNTER 2024-11-30 20:12 | Outpatient (REF) | payer MEDICAID, SELFPAY ==
--- OUTSIDE RECORDS SUMMARY | 2024-08-25 09:45 | XMS_ITS ---
Author Organization [facility] vices Address [address] [place], [place] [id number] Care Team Providers Care Dairy Farm Supervisor Name Role Phone Tiffany Petersen Primary Care Provider [phone] Ailyn Pringle [phone] REASON FOR VISIT Recall (A) 31 Social History Sex Assigned At : Social History Observation Description Sex Assigned At Female Encounters Encounter Location Date Provider Diagnosis Dental Main [address] [place], [place] [id number] 08/25/2024 Ailyn Pringle Plan Of Treatment No Information Progress Notes * Nadine WADDELLDOB: 2 (34 yo F)Acc No.[id number]:08/25/2024 Patient: Nadine BARRETT Provider: Bertin Pringle DMD :1990 A ge:34 Y S ex:Female Date:08/25/2024 Address:[address] [place] [address], [address] [facility]-[id number] Pcp:Tiffany Petersen Subjective: * Chief Complaints: * 1 . Recall (A) 31. * Medical History: Objective: * Vitals: Assessment: Plan: * Treatment: * Billing Information: * Visit Code: * Procedure Codes: * Electronic signature of Lilo Pringle DMD on 11/30/2024 at 08:17 PM EDT Sign off status: Pending * Provider: Bertin Pringle DMD Date: 0 08/25/2024 Generated for Vale coto/Judy/Kimberley on: 0 11/30/2024 08:17 PM EDT
--- OUTSIDE RECORDS SUMMARY | 2024-08-27 07:41 | XMS_ITS ---
Author Organization [facility] in [place] Address [address] [place] [address] Care Team Providers Care Interactive Media Marketing Strategist Name Role Phone Laron Avila Primary Care [...] Active Encounters Encounter Location Date Provider Diagnosis [address] [address] 08/27/2024 Laron Avila Plan Of Treatment Medication [...] Nadine WADDELL LDOB: [birth year] (34 yo F)Acc No.[id number]:08/27/2024 Patient: Nadine BARRETT Nishant :1990 A ge:34 Y S ex:Female Address:[address], [place] [address] * Refills Start Ventolin HFA Aerosol Solution, [...] Date: Generated for Vale coto/Judy/Faisalitting on: 0 11/30/2024 08:16 PM EDT
--- OUTSIDE RECORDS SUMMARY | 2024-08-28 07:32 | XMS_ITS ---
Author Organization The [facility] in [place] Address [address] [place] [address] Care Team Providers Care Inventory Taker Name Role Phone Laron Avila Primary Care Provider REASON FOR VISIT epi pen Medications Medication SIG (Take, Route, Frequency, Duration) Notes Start Date End Date Status EpiPen 2-Long 0.3 MG/0.3ML as directed In jection once prn 08/28/2024 Active Encounters Encounter Location Date Provider Diagnosis [address] [address] 08/28/2024 Laron Avila Plan Of Treatment Medication Medication Name Sig Start Date Stop Date Notes EpiPen 2-Long 0.3 MG/0.3ML as directed Injection once prn 0 08/28/2024 Progress Notes * Nadine WADDELL LDOB: [birth year] (34 yo F)Acc No.[id number]:08/28/2024 Patient: Nadine BARRETT :1990 A ge:34 Y S ex:Female Address:[address] [place] [address], [address] [address] * Refills Start EpiPen 2-Long Solution Auto-injector, 0.3 MG/0.3ML, Injection, 1, as directed, once prn, Refills=11 * true * Date: Generated for Printi ng/Faxing/eTransmitting on: 0 11/30/2024 08:17 PM EDT
--- OUTSIDE RECORDS SUMMARY | 2024-09-11 06:30 | XMS_ITS ---
Author Organization [facility] vices Address [address] [place], [place] [phone] Care Team Providers Care Paragliding Instructor Name Role Phone TrinityMaryanaTiffany Primary Care Provider Ailyn Pringle [phone] REASON FOR VISIT Recall (A) 32 Medications [...] Location Date Provider Diagnosis Dental Main [address] [place], [place] [id number] 09/11/2024 Ailyn Pringle Plan Of Treatment No Information Progress Notes * Nadine WADDELLDOB: 2 (34 yo F)Acc No.[id number]:09/11/2024 Patient: Nadine BARRETT Provider: Bertin Pringle DMD :1990 A ge:34 Y S ex:Female Date:09/11/2024 Address:[address], [id number] Pcp:Tiffany Petersen Subjective: * Chief Complaints: * [...] of Lilo Pringle DMD on 11/30/2024 at 08:18 PM EDT Sign off status: Pending * Provider: Bertin Pringle DMD Date: 09/11/2024 Generated for Vale coto/Judy/Kimberley on: 11/30/2024 08:18 PM EDT
--- OUTSIDE RECORDS SUMMARY | 2024-09-23 09:05 | XMS_ITS ---
Author Organization The [facility] in [place] Address [address] [place] [address] Care Team Providers Care Tar Heater Operator Name Role Phone Laron Avila Primary Care Provider REASON FOR VISIT ER- check on Encounters Encounter Location Date Provider Diagnosis [address] [address] 09/23/2024 Laron Avila Plan Of Treatment No Information Progress Notes * BAIRON Nadine LDOB: [birth year] (34 yo F)Acc No.[id number]:09/23/2024 Patient: Nadine BARRETT :1990 A ge:34 Y S ex:Female Address:[address] [place] [address], [address] [address] * true * Date: Generated for Poppyi chica/Aniketg/eTransmitting on: 0 11/30/2024 08:16 PM EDT
--- OUTSIDE RECORDS SUMMARY | 2024-11-16 12:43 | XMS_ITS | Encounter Summary ---
Author Organization [facility] tem Address [id number] [address] [place] [address] Care Team Providers Care Rn Wound Care Name Role Phone Jaime Wyatt PA-C Primary Care Provider + [phone] Reason for Visit * Diagnostic Imaging (Routine) - Pending Review Specialty Diagnoses / Procedures Referred By Sole t Referred To Contact Maternal and Medicine Diagnoses Supervision of high risk , antepartum Procedures US MFM with or without consult US MFM with or without consult Trav Macdonald MD [address], [address] [place] [address] Phone: tel: fax: Maternal- Medicine at [facility] [address] [place] [address] Phone: tel: fax: Referral ID Status Reason Start Date Expiration Date V isits Requested Visits Authorized [id number] Pending Review 11/16/2024 11/16/2025 1 1 Encounter Details Date Type Department Care Team (Latest Contact Info) Description 11/16/2024 12:43 PM EDT - 11/16/2024 11:59 PM EDT Hospital [facility] - [facility]FM US Imaging [address] [place] [phone] Supervision of high risk , antepartum Discharge [...] Procedure Name Priority Date/Time Associated Diagnosis Comments [facility] OB FOLLOW-UP, 1 FETUS Routine 11/16/2024 3:01 PM EDT Supervision of high risk , antepartum documented in this encounter Results * [facility] OB FOLLOW-UP, 1 FETUS (11/16/2024 3:01 PM EDT) Anatomical Region Laterality Modality OB-REVERBERATORY FURNACE OPERATOR Ultrasound 11/16/2024 1:48 PM EDT Narrative 11/16/2024 3:25 PM EDT NAME: BAIRON TO : 1990 SEX: F Accession Number: [id number] ORDERING PHYSICIAN: TRAV MACDONALD REFERRING PHYSICIAN: DAVE CUELLAR Coding ----- --------- Procedures 27732: Follow-up Ultrasound, per fetus [address]: Echocardiography, , cardiovascular system, real time with [...] ----- --------- OB History 7. Para 4 [id number] Current ----- --------- Cell free DNA Low [...] EFW (oz) 14 oz EFW by: Hadlock (INF-YF-OY-FL) Extended Tibia 58.9 mm 34w 3d 81% Gurdeep Termite Treater Helper 6.0 mm CM 14.6 mm Head / [...] Cerebellum. Face: Lips. Nose. Heart/Thorax: 4-chamber view. 6-bwbyym-tdrrhfc view. Great vessels. Diaphragm. Abdomen: Stomach. Kidneys. [...] view documented previously 3-vessel view documented previously 9-dvnpca-xmjbhuv view normal Aortic arch view documented previously [...] TO : 1990 SEX: F Accession Number: [id number] ORDERING PHYSICIAN: TRAV MACDONALD REFERRING PHYSICIAN: DAVE CUELLAR Coding ----- --------- Procedures 71260: Follow-up Ultrasound, per fetus [address]: Echocardiography, , cardiovascular system, real timewith image documentation (2D), with or without M-mode recording; follow-up or repeat study Indication ----- --------- Screening for follow-up survey, Chronic hypertension affecting ,History of prior with delivery, Supervision of high risk - MOB alcohol syndrome, T13 inprev , MOB club foot, allan cisterna magna, 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 Para 4 [id number] Current ----- --------- Cell free DNA Low [...] EFW (oz) 14 oz EFW by: Hadlock (BQS-MU-QP-FL) Extended Tibia 58.9 mm 34w 3d 81% Gurdeep Termite Treater Helper 6.0 mm CM 14.6 mm Head / [...] Cerebellum. Face: Lips. Nose. Heart/Thorax: 4-chamber view. 0-ozzbat-zutbhho view. Great vessels. Diaphragm. Abdomen: Stomach. Kidneys. [...] view documented previously 3-vessel view documented previously 0-yzzmlz-hzgaxfs view normal Aortic arch view documented previously [...] specified by MFM. us Trav Macdonald MD [facility] US ORDERABLES Final Resul t documented in this encounter Visit Diagnoses Diagnosis Supervision of high risk , antepartum documented in this encounter Additional Health Concerns Assessment Noted Time PHQ-9 Depression Total Score: 0 05/02/20 22 1:41 PM EST documented as of this encounter Care Teams Rn Wound Care Relationship Specialty Start Date End Date Jaime Wyatt PA-C [address] [place], [place] [phone] PCP - General Physician Wholesale Parts Salesperson 03/18/18 documented as of this encounter
--- OUTSIDE RECORDS SUMMARY | 2024-11-16 14:30 | XMS_ITS | Encounter Summary ---
Author Organization [facility] tem Address [facility] [id number] [address] 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 (Primary Dx); Allan cisterna magna ([facility]) - Social History Tobacco Use Types Packs/Day Years [...] Sign Reading Time Taken Comments Blood Pressure 117/77 11/16/2024 1:44 PM EDT Pulse 87 11/16/2024 1:44 PM EDT Temperature - - Respiratory Rate - - Oxygen Saturation - - Inhaled Oxygen Concentration - - Weight 78.5 kg (173 lb) 11/16/2024 1:44 PM EDT Height 165.1 cm (5' 5 ) 11/16/2024 1:44 PM EDT Body Mass Index 28.79 11/16/2024 1:44 PM EDT documented in this encounter Progress Notes * Nataly Cook RN - 11/16/2024 2:30 PM EDT Headache/epigastric pain/blurry vision/swelling? No Cramping/contractions? No Abnormal vaginal discharge? No Spotting or vaginal bleeding? Patient reports small amount of spotting following previous transvaginal ultrasound, states discussed with primary OB Loss or gush of fluid like your water may have broken? No Recent ER visits or hospitalizations? No Any concerns that you would like me to mention to the provider today? No * Trav Macdonald MD - 11/16/2024 2:30 PM EDT REASON FOR OFFICE VISIT: allan cisterna magna. HISTORY OF PRESENT ILLNESS: Nadine Wyatt is a pleasant 34 y.o. G 7p 4-0 2 3 at 33w6d due on Estimated Date of Delivery: 12/29/24 . 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 Previous family member have been affected. Patient has opted out of genetic counseling in the previous as well. Maternal bipolar disorder currently stable not on medication. Patient has a family history of this finding in 2 of her 3 living children. She and 2 over daughter's were diagnosed with FLNA deficiency, gillespie matter heterotopia, in two daughters (2017, 2022) with fluid at the back of the brain , an autosomal dominant condition with a 50% chance of inheritance rate. Currently the patient has no complaints. The patient denies nausea, vomiting, abdominal pain, vaginal bleeding, SOB or chest pain. 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) - ADHD Anxiety Bipolar disorder (CMS-HCC) Club foot Depression alcohol syndrome PTSD (post-traumatic stress disorder) ALLERGIES: Allergies Allergen Reactions Bee Venom Protein (Honey Bee) Mold Other Reaction(s): Unknown Penicillins Hives Other Reaction(s): Unknown Other Reaction(s): Anaphylaxis Other Reaction(s): Unknown Sulfa (Sulfonamide Antibiotics) Other Reaction(s): Unknown Other Reaction(s): Rash Other Reaction(s): Unknown CURRENT MEDICATIONS: Current Outpatient Medications: 25/iron fum/folic/dha (-1 ORAL), Take 1 capsule by mouth in the morning., Disp: , Rfl: fluconazole (DIFLUCAN) 10 mg/mL suspension, , Disp: , Rfl: ondansetron ODT (ZOFRAN ODT) 4 mg disintegrating tablet, Dissolve 1 tablet (4 mg total) on tongue every 8 (eight) hours as needed for nausea or vomiting. (Patient not taking: Reported on 11/16/2024), Disp: , Rfl: Past Medical History: Diagnosis [...] findings are see report. PHYSICAL EXAMINATION: BP 117/77 Pulse 87 Ht 165.1 cm (5' 5 ) Wt 78.5 kg (173 lb) LMP 03/24/2024 BMI 28.79 kg/m?? . Gravid abdomen, Respirations not labored. Normal gait well oriented in time place and person. RECOMMENDATION: 1. Allan cisterna magna and the posterior fossa along with heterotopia for current . 2. Patient opting out of genetic amniocentesis. 3. Patient prefers to have evaluation done in life. 4. Continue serial growth Ultrasounds every 4 weeks at her OB office. 5. Term spontaneous vaginal delivery at local hospital is anticipated with C section reserve for routine obstetrical indications. 6. Patient does not have any future appointment scheduled with us. Thank you for allowing me to participate in Nadine Wyatt care. If there are any questions, please do not hesitate to call me. 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
--- OUTSIDE RECORDS SUMMARY | 2024-11-23 14:20 | XMS_ITS | Encounter Summary ---
Author Organization [facility] Address [address] [facility] [place] [address] Care Team Providers Care Carbon Grinder Name Role Phone Yoselin Jaime FERMIN Unavailable Unallocated, Noms Provider Primary Care Provi kwabena Reason for Visit * Reason Comments Routine Visit Encounter Details Date Type Department Care Team (Late st Contact Info) Description 11/23/2024 2:20 PM EDT Routine [facility] OB [address] [place] [address] Cuong Ortiz, DO [address] [facility] [address] [place], [facility] Third trimester ([facility]); 34 weeks gestation of ([facility]) Social History Tobacco Use Types Packs/Day [...] deficit disorder) ADHD (attention deficit hyperactivity disorder) ([facility]) Anxiety Bacterial vaginosis Bipolar disorder Club foot Depression ([facility]) Female infertility Heart problem Hormone imbalance HISTORY PAST MEDICAL HISTORY SOCIAL HISTORY Past Medical History: Diagnosis Date Abscess ADD (attention deficit disorder) ADHD (attention deficit hyperactivity disorder) ([facility]) Anxiety Bacterial vaginosis Bipolar disorder Club foot Depression ([facility]) Female infertility Heart problem Heart Issue Hormone [...] nursing note reviewed. Exam conducted with a nurse emergency room present. Vitals: Estimated body mass index is [...] PM EDT Routine [facility] B[facility] OB [address] [facility] [place] [phone] Cuong Ortiz, DO [address] [facility] [place] [address] documented as of this encounter Goals Goal Patient Goal Type Associated Problems Recent Progress Patient-Stated? Author Reminders Care Plan OB Reminders No Open Scheduling, Background documented as of this encounter Procedures Procedure Name Priority Date/Time Associated Diagnosis Comments POCT URINALYSIS DIPSTICK Routine 11/23/2024 2:58 PM EDT Third trimester ([facility]) documented in this encounter Results * (ABNORMAL) [...] encounter Visit Diagnoses Diagnosis Third trimester ([facility]) state, incidental 34 weeks gestation of ([facility]) documented in this encounter Additional Health Concerns Active Problems Noted Date Diagnosed Date OB Reminders 06/23/2024 documented as of this encounter Care Teams Carbon Grinder Relationship Specialty Start Date End Date Unallocated, Noms Provider, [address] [place] [address] PCP - General 03/04/23 Jaime Wyatt PA [address] [place], [place] [phone] Referring Physician Physical Medicine and Rehabilitation 03/04/23 documented as of this encounter
--- OUTSIDE RECORDS SUMMARY | 2024-11-30 13:10 | XMS_ITS | Encounter Summary ---
Author Organization [facility] Address [address] [facility] [place] [address] Care Team Providers Care Sign Installer Name Role Phone Yoslein Jaime FERMIN Unavailable Unallocated, Noms Provider Primary Care Provi kwabena Reason for Visit * Reason Comments Routine Visit Encounter Details Date Type Department Care Team (Late st Contact Info) Description 11/30/2024 1:10 PM EDT Routine [facility] BCP OB [address] [place] [address] Cuong Ortiz, [facility] [address], [place] [address] Third trimester ([facility]); 35 weeks gestation of ([facility]) Social History Tobacco Use Types [...] EDT Routine [facility] BCP OB [address] [place] [address] Cuong Ortiz, DO [address] [facility] [place] [address] Scheduled Orders Name Type Priority Associated Diagnoses Orde r Schedule CULTURE, GROUP B STREP WITH SUSCEPTIBLITY Lab Routine Third trimester ([facility]) Expected: 11/30/2024, Expires: 11/30/2025 documented as of this encounter Goals Goal Patient Goal Type Associated Problems Recent Progress Patient-Stated? Author Reminders Care Plan OB Reminders No Open Scheduling, Background documented as of this encounter Procedures Procedure Name Priority Date/Time Associated Diagnosis Comments POCT URINALYSIS DIPSTICK Routine 11/30/2024 2:02 PM EDT Third trimester ([facility]) documented in this encounter Results * (ABNORMAL) POCT urinalysis dipstick manually resulted (11/30/2024 2:02 PM EDT) Color, UA Yellow Clarity, UA Clear Glucose, UA Negative Negative - 2000(110) ++++ mg/dL Bilirubin, UA Negative Negative - 4(70) +++ mg/dL Ketones, UA Negative Negative - 160(16) ++++ mg/dL Spec Grav, UA 1.020 1 - 1.03 Blood, UA Negative Negative - 50 Rakesh/mcL pH, UA 7.5 5 - 9 Protein, UA Negative Negative - 2000(20) ++++ mg/dL Urobilinogen, UA 0.2 0.2 - 12 mg/dL Leukocytes, UA Positive Negative - 500+++ Matti/mcL Comment:Moderate Nitrite, UA Negative Negative - Positive Urine 11/30/2024 2:02 PM EDT Cuong Ortiz DO POINT OF CARE TEST ENTER/EDIT OR DERABLES Final Result documented in this encounter Visit Diagnoses Diagnosis Third trimester ([facility]) state, incidental 35 weeks gestation of ([facility]) documented in this encounter Additional Health Concerns Active Problems Noted Date Diagnosed Date OB Reminders 06/23/2024 documented as of this encounter Care Teams Sign Installer Relationship Specialty Start Date End Date Unallocated, Noms Provider, [address] [place] [address] PCP - General 03/04/23 Jaime Wyatt PA [address] [place], [place] [phone] Referring Physician Physical Medicine and Rehabilitation 03/04/23 documented as of this encounter
--- OUTSIDE RECORDS SUMMARY | 2024-11-30 20:16 | XMS_ITS | Encounter Summary ---
Author Organization [facility] Address [address] [facility] [place] [address] Care Team Providers Care Paper Mill Supervisor Name Role Phone Yoselin Jaime FERMIN Unavailable Unallocated, Noms Provider Primary Care Provi kwabena Encounter Details Date Type Department Care Team (Late st Contact Info) Description 08/28/2024 Abstract [facility] OB [address] [place] [address] Cuong Ortiz DO [facility] [address], [place] [address] Social History Tobacco Use Types Packs/Day Years [...] Routine [facility] BCP OB [address] [place] [address] Cuong Ortiz DO [address] [place] [address] documented as of this encounter Goals Goal Patient Goal Type Associated Problems Recent Progress Patient-Stated? Author Reminders Care Plan OB Reminders No Open Scheduling, Background documented as of this encounter Visit Diagnoses Not on filedocumented in this encounter Additional Health Concerns Active Problems Noted Date Diagnosed Date OB Reminders 06/23/2024 documented as of this encounter Care Teams Paper Mill Supervisor Relationship Specialty Start Date End Date Unallocated, Noms Provider, [address] [place] [address] PCP - General 03/04/23 Jaime Wyatt PA [address] [place] [address] Referring Physician Physical Medicine and Rehabilitation 03/04/23 documented as of this encounter
--- OUTSIDE RECORDS SUMMARY | 2024-11-30 20:16 | XMS_ITS | Encounter Summary ---
Author Organization [facility] Address [address] [place] [facility] [place] [address] Care Team Providers Care Fire Code Inspector Name Role Phone Yoselin Jaime FERMIN Unavailable Unallocated, Noms Provider Primary Care Provi kwabena Encounter Details Date Type Department Care Team (Late Contact Info) Description 11/23/2024 Bamboo flowsheet [facility] OB [address] [place] [address] Cuong Ortiz DO [facility] [place] [address] Social History Tobacco Use Types Packs/Day Years [...] Department Care Team (Late Contact Info) Description 12/07/2024 1:00 PM EDT Routine [facility] BCP OB [address] [place] [address] Cuong Ortiz DO [address] [place] [address] documented as of this encounter Goals Goal Patient Goal Type Associated Problems Recent Progress Patient-Stated? Author Reminders Care Plan OB Reminders No Open Scheduling, Background documented as of this encounter Visit Diagnoses Not on filedocumented in this encounter Additional Health Concerns Active Problems Noted Date Diagnosed Date OB Reminders 06/23/2024 documented as of this encounter Care Teams Fire Code Inspector Relationship Specialty Start Date End Date Unallocated, Noms Provider, [address] [place] [address] PCP - General 03/04/23 Jaime Wyatt PA [address] [place] [address] Referring Physician Physical Medicine and Rehabilitation 03/04/23 documented as of this encounter
--- OUTSIDE RECORDS SUMMARY | 2024-11-30 20:16 | XMS_ITS | Encounter Summary ---
Author Organization [facility] Address [address] [facility] [[email or web address] [place] [address] Care Team Providers Care Stock Clerk Name Role Phone Yoselin Jaime FERMIN Unavailable Unallocated, Noms Provider Primary Care Provi kwabena Encounter Details Date Type Department Care Team (Late st Contact Info) Description 11/16/2024 Abstract [facility] OB [address] [place] [address] Cuong Ortiz DO [facility] [address], [place] [address] Social History Tobacco Use Types Packs/Day Years [...] Routine [facility] BCP OB [address] [place] [address] Cuong Ortiz DO [address] [place] [address] documented as of this encounter Goals Goal Patient Goal Type Associated Problems Recent Progress Patient-Stated? Author Reminders Care Plan OB Reminders No Open Scheduling, Background documented as of this encounter Visit Diagnoses Not on filedocumented in this encounter Additional Health Concerns Active Problems Noted Date Diagnosed Date OB Reminders 06/23/2024 documented as of this encounter Care Teams Stock Clerk Relationship Specialty Start Date End Date Unallocated, Noms Provider, [address] [place] [address] PCP - General 03/04/23 Jaime Wyatt PA [address] [place] [address] Referring Physician Physical Medicine and Rehabilitation 03/04/23 documented as of this encounter
--- OUTSIDE RECORDS SUMMARY | 2024-11-30 20:17 | XMS_ITS | Encounter Summary ---
Author Organization [facility] Address [address] [facility] [place] [address] Care Team Providers Care Regional Airline Pilot Name Role Phone Yoselin Jaime FERMIN Unavailable Unallocated, Noms Provider Primary Care Provi kwabena Encounter Details Date Type Department Care Team (Late st Contact Info) Description 10/10/2023 Clinisync Result Encounter [facility] External Department Unsolicited Dave Ortiz, [facility] [address], [place] [address] Social History Tobacco Use Types Packs/Day Years [...] Routine [facility] BCP OB [address] [place] [phone] Dave Ort[place] [address] documented as of this encounter Procedures Procedure Name Priority Date/Time Associated Diagnosis Comments US OB GROWTH 10/10/2023 7:18 AM EDT documented in this encounter Results * US OB GROWTH (10/10/2023 7:18 AM EDT) Anatomical Region Laterality Modality Other 10/10/2023 7:18 AM EDT Narrative 10/10/2023 7:21 [place] [address] Ultrasound Report Signed Patient: ZULEIKA WADDELL MR#: [id number] : 1990 Acct:[id number] Age/Sex: 33 / F ADM Date: 10/09/23 Loc: US Attending Dr: Dave Ortiz D.O. Ordering Physician: Dave Ortiz D.O. Date of Service: 10/09/23 Procedure(s): US OB growth Accession Number(s): [id number] cc: Dave Ortiz D.O.; Jaime Waddell [place] [address] Patient Name: ZULEIKA WADDELL MRN: [id number] date: 1990 Sex: F Assigned Patient Location: [facility] Current Patient Location: [place] Accession/Order Number: [id number] Exam Date: 10/09/2023 15:20 Report Date: 10/10/2023 [...] M.D. Signed By: 10/10/23720 DD/ 7 TD/TT: Cloth Washer Back Tender: Procedure Note Radiology, Radiologist, MD - 10/10/2023 [place] [address] Ultrasound Report Signed Patient: ZULEIKA WADDELL LMR#: [id number] : 1990Acct:[id number] Age/Sex: 33 / FADM Date: 10/09/23 Loc: US Attending Dr: Dave Ortiz D.O. Ordering Physician: Dave Ortiz D.O. Date of Service: 10/09/23 Procedure(s): US OB growth Accession Number(s): [id number] cc: Dave Ortiz D.O.; Jaime Waddell [place] [address] Patient Name: ZULEIKA WADDELL MRN: [id number] date: 1990 Sex: F Assigned Patient Location: [facility] Current Patient Location: [place] Accession/Order Number: [id number] Exam Date: 10/09/2023 15:20 Report Date: 10/10/2023 [...] Dawn M.D. Signed By:10/10/23720 DD/ 7 TD/TT: Cloth Washer Back Tender: us Dave Diana DO [facility] Final Result documented in this encounter Visit Diagnoses Not on filedocumented in this encounter Care Teams Regional Airline Pilot Relationship Specialty Start Date End Date Unallocated, Noms Prakash, [address] [place] [address] PCP - General 03/04/23 Jaime Waddell PA [address] [place], [place] [phone] Referring Physician Physical Medicine and Rehabilitation 03/04/23 documented as of this encounter
--- OUTSIDE RECORDS SUMMARY | 2024-11-30 20:17 | XMS_ITS | Encounter Summary ---
Author Organization [facility] Address [address] [facility] [place] [address] Care Team Providers Care Solar Energy System Installer Name Role Phone Yoselin Jaime FERMIN Unavailable Unallocated, Noms Provider Primary Care Provi kwabena Encounter Details Date Type Department Care Team (Late st Contact Info) Description 06/30/2024 Abstract [facility] BCP OB [address] [place] [address] Cuong Ortiz, DO [address] [place], [place] [address] Social History Tobacco Use Types Packs/Day Years [...] Routine [facility] BCP OB [address] [place] [address] Cuong Ortiz, DO [address], [facility] documented as of this encounter Goals Goal Patient Goal Type Associated Problems Recent Progress Patient-Stated? Author Reminders Care Plan OB Reminders No Open Scheduling, Background documented as of this encounter Visit Diagnoses Not on filedocumented in this encounter Additional Health Concerns Active Problems Noted Date Diagnosed Date OB Reminders 06/23/2024 documented as of this encounter Care Teams Solar Energy System Installer Relationship Specialty Start Date End Date Unallocated, Noms Provider, [address] [place], [place] [phone] PCP - General 03/04/23 Jaime Wyatt PA [address] [place] [address] Referring Physician Physical Medicine and Rehabilitation 03/04/23 documented as of this encounter
--- OUTSIDE RECORDS SUMMARY | 2024-11-30 20:17 | XMS_ITS | Encounter Summary ---
Author Organization [facility] Address [address] [facility], [place] [address] Care Team Providers Care Assistant Professor Of History Name Role Phone Jaime Wyatt Unavailable Unallocated, Noms Provider Primary Care Provi kwabena Encounter Details Date Type Department Care Team (Late st Contact Info) Description 11/07/2023 Abstract [facility] B[facility] OB [address] [facility] [place] [address] Cuong Ortiz DO [facility] [place], [place] [address] Social History Tobacco Use Types Packs/Day Years [...] Routine [facility] BCP OB [address] [place] [address] Cuong Ortiz DO [facility] [place], [place] [id number] documented as of this encounter Visit Diagnoses Not on filedocumented in this encounter Care Teams Assistant Professor Of History Relationship Specialty Start Date End Date Unallocated, Noms Provider, [address] [place], [place] [id number] PCP - General 03/04/23 Jaime Wyatt PA [address] [place], [place] [phone] Referring Physician Physical Medicine and Rehabilitation 03/04/23 documented as of this encounter
--- OUTSIDE RECORDS SUMMARY | 2024-11-30 20:17 | XMS_ITS | Encounter Summary ---
Author Organization [facility] Address [address] [facility] [place] [address] Care Team Providers Care Rubber Roller Grinder Operator Name Role Phone Jaime Wyatt Unavailable Unallocated, Noms Provider Primary Care Provi kwabena Encounter Details Date Type Department Care Team (Late st Contact Info) Description 12/13/2023 Abstract [facility] [address] [facility] [place] [place] [address] Destinee Vazquez LPN [address] [employer] [facility] [place] [address] Social History Tobacco Use Types Packs/Day Years [...] PM EDT Routine [facility] [address] [facility] [place] [address] Cuong Ortiz DO [address] [facility] [address] [place] [phone] documented as of this encounter Visit Diagnoses Not on filedocumented in this encounter Care Teams Rubber Roller Grinder Operator Relationship Specialty Start Date End Date Unallocated, Noms Provider, [address] [place], [place] [phone] PCP - General 03/04/23 Jaime Wyatt PA [address] [place], [place] [phone] Referring Physician Physical Medicine and Rehabilitation 03/04/23 documented as of this encounter
--- OUTSIDE RECORDS SUMMARY | 2024-11-30 20:17 | XMS_ITS | Encounter Summary ---
Author Organization [facility] Address [address] [facility] [place] [address] Care Team Providers Care Dietitian Teacher Name Role Phone Yoselin Jaime FERMIN Unavailable Unallocated, Noms Provider Primary Care Provi kwabena Encounter Details Date Type Department Care Team (Late st Contact Info) Description 05/19/2024 Clinisync Result Encounter [facility] External Department Unsolicited Dave Ortiz, [facility] Uri [place], [place] [address] Social History Tobacco Use Types Packs/Day Years [...] [facility] BCP OB 102 [place] [id number] Dave Ortiz DO [facility] [place] [address] documented as of this encounter Procedures Procedure Name Priority Date/Time Associated Diagnosis Comments US OB TRANSVAGINAL 05/19/2024 7: 24 AM EST documented in this encounter Results * US OB TRANSVAGINAL (05/19/2024 7:24 AM EST) Anatomical Region Laterality Modality Other 05/19/2024 7:24 AM EST Narrative 05/19/2024 7:27 [place] [address] Ultrasound Report Signed Patient: ZULEIKA WADDELL MR#: [id number] : 1990 Acct:[id number] Age/Sex: 34 / F ADM Date: 05/18/24 Loc: US Attending Dr: Dave Ortiz D.O. Ordering Physician: Dave Ortiz D.O. Date of Service: 05/18/24 Procedure(s): US OB transvaginal Accession Number(s): [id number] cc: Daev Ortiz D.O.; YoselinJaime [place] [id number] Patient Name: ZULEIKA WADDELL MRN: [id number] date: 1990 Sex: F Assigned Patient Location: US Current Patient Location: Accession/Order Number: [id number] Exam Date: 05/18/2024 17:15 Report Date: 05/19/2024 [...] M.D. Signed By: 05/19/24726 DD/ 3 TD/TT: Seed Sales Manager: Procedure Note Radiology, Radiologist, - 05/19/2024 [place] [address] Ultrasound Report Signed Patient: ZULEIKA WADDELL LMR#: [id number] : 1990Acct:[id number] Age/Sex: 34 / FADM Date: 05/18/24 Loc: US Attending Dr: Dave Ortiz D.O. Ordering Physician: Dave Ortiz D.O. Date of Service: 05/18/24 Procedure(s): US OB transvaginal Accession Number(s): [id number] cc: Dave Ortiz D.O.; Jaime Waddell [place] [phone] Patient Name: ZLUEIKA WADDELL MRN: [id number] date: 1990 Sex: F Assigned Patient Location: US Current Patient Location: Accession/Order Number: [id number] Exam Date: 05/18/2024 17:15 Report Date: 05/19/2024 [...] Crump M.D. Signed By:05/19/24726 DD/ 3 TD/TT: Seed Sales Manager: us Dave Diana DO [facility] Final Result documented in this encounter Visit Diagnoses Not on filedocumented in this encounter Care Teams Dietitian Teacher Relationship Specialty Start Date End Date Unallocated, Noms Provider, [address] [place] [address] PCP - General 03/04/23 Jaime Waddell PA [address] [place] [address] Referring Physician Physical Medicine and Rehabilitation 03/04/23 documented as of this encounter
--- OUTSIDE RECORDS SUMMARY | 2024-11-30 20:17 | XMS_ITS | Encounter Summary ---
Author Organization [facility] Address [address] [facility] [place] [address] Care Team Providers Care Correctional Counselor/Case Manager Name Role Phone Jaime Wyatt Unavailable Unallocated, Noms Provider Primary Care Provi kwabena Encounter Details Date Type Department Care Team (Late st Contact Info) Description 11/18/2023 Abstract [facility] BCP OB [address] [facility] [place] [address] Destinee Vazquez LPN 102 [facility] [place] [address] Social History Tobacco Use Types Packs/Day Years [...] PM EDT Routine [facility] BCP OB [address] [facility] [place] [address] Cuong Ortiz DO [address] [facility] [address] [place] [phone] documented as of this encounter Visit Diagnoses Not on filedocumented in this encounter Care Teams Correctional Counselor/Case Manager Relationship Specialty Start Date End Date Unallocated, Noms Provider, [address] [place], [place] [phone] PCP - General 03/04/23 Jaime Wyatt PA [address] [place], [place] [phone] Referring Physician Physical Medicine and Rehabilitation 03/04/23 documented as of this encounter
--- OUTSIDE RECORDS SUMMARY | 2024-11-30 20:17 | XMS_ITS | Encounter Summary ---
Author Organization [facility] Address [address] [facility] [place] [address] Care Team Providers Care Spout Positioner Name Role Phone Yoselin Jaime FERMIN Unavailable Unallocated, Noms Provider Primary Care Provi kwabena Encounter Details Date Type Department Care Team (Late st Contact Info) Description 10/16/2023 Clinisync Result Encounter [facility] External Department Unsolicited Dave Ortiz, [facility] Uri [place], [place] [address] Social History Tobacco Use Types Packs/Day Years [...] Routine [facility] BCP OB 102 [place] [phone] Dave Ortiz DO [facility] [place] [address] documented as of this encounter Procedures Procedure Name Priority Date/Time Associated Diagnosis Comments US OB BPP W NON-STRESS 10/16/2023 3:05 PM EDT documented in this encounter Results * US OB BPP W NON-STRESS (10/16/2023 3:05 PM EDT) Anatomical Region Laterality Modality Other 10/16/2023 3:05 PM EDT Narrative 10/16/2023 3:08 [place] [address] Ultrasound Report Signed Patient: ZULEIKA WADDELL MR#: [id number] : 1990 Acct:[id number] Age/Sex: 33 / F ADM Date: 10/16/23 Loc: [facility] 250-[address]: Dave Ortiz D.O. Ordering Physician: Dave Ortiz D.O. Date of Service: 10/16/23 Procedure(s): US OB BPP w non-stress Accession Number(s): [id number] cc: Dave Ortiz D.O.; [place]ellJaime [place] [address] Patient Name: ZULEIKA WADDELL MRN: [id number] date: 1990 Sex: F Assigned Patient Location: [facility] Current Patient Location: [facility] Accession/Order Number: [id number] Exam Date: 10/16/2023 14:10 Report Date: 10/16/2023 [...] Signed By: 10/16/23 1508 DD/ 1505 TD/TT: Battery Container Inspector: Procedure Note Radiology, Radiologist, - 10/16/2023 [place] [address] Ultrasound Report Signed Patient: ZULEIKA WADDELL LMR#: [id number] : 1990Acct:[id number] Age/Sex: 33 / FADM Date: 10/16/23 Loc: [facility] 250-[address]: Dave Ortiz D.O. Ordering Physician: Dave Ortiz D.O. Date of Service: 10/16/23 Procedure(s): US OB BPP w non-stress Accession Number(s): [id number] cc: Dave Ortiz D.O.; Jaime Waddell [place] [address] Patient Name: ZULEIKA WDADELL MRN: [id number] date: 1990 Sex: F Assigned Patient Location: [facility] Current Patient Location: [facility] Accession/Order Number: [id number] Exam Date: 10/16/2023 14:10 Report Date: 10/16/2023 [...] M.D. Signed By:10/16/23 1508 DD/ 1505 TD/TT: Battery Container Inspector: us Dave Ortiz DO [facility] Final Result documented in this encounter Visit Diagnoses Not on filedocumented in this encounter Care Teams Spout Positioner Relationship Specialty Start Date End Date Unallocated, Noms Provider, [address] [place], [place] [phone] PCP - General 03/04/23 Jaime Waddell PA [address] [place] [address] Referring Physician Physical Medicine and Rehabilitation 03/04/23 documented as of this encounter
--- OUTSIDE RECORDS SUMMARY | 2024-11-30 20:17 | XMS_ITS | Encounter Summary ---
Author Organization [facility] Address [id number] [address] 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 Procedures US [facility] with or without consult Dave Ortiz DO Phone: tel: fax: Maternal- Medicine at [address] [address] Phone: tel: fax: Referral ID Status Reason Start Date Expiration Date V isits Requested Visits Authorized [id number] Pending Review 08/27/2024 08/27/2025 1 1 Encounter Details Date Type Department Care Team (Late st Contact Info) Description 08/27/2024 Orders Only Maternal- Medicine at [address] [address] Beronica Minaya CMA History of [...] 2:35 PM EDT) Anatomical Region Laterality Modality OB-MARINE DIVER Ultrasound 08/27/2024 1:30 PM EDT Narrative 08/27/2024 5:23 PM EDT NAME: BAIRON TO : 1990 SEX: F Accession Number: [id number] ORDERING PHYSICIAN: DAVE ORTIZ REFERRING PHYSICIAN: DAVE ORTIZ Coding ----- --------- Procedures 53757: Ultrasound, uterus, real time with image documentation, and maternal evaluation plus detailed anatomic examination, transabdominal approach;single or first gestation 75055: Transvaginal Ultrasound (OB) Indication ----- --------- Screening for Anatomic Survey , Screening for cervical length , Chronic hypertension affecting , History of prior with delivery, Supervision of high risk - MOB alcohol syndrome, 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 Para 4 [id number] Current ----- --------- Cell free DNA Low [...] 1 lb 0 oz EFW by Hadlock ([id number]) Head / Face / Neck Biometry: Cephalic index 0.70 <1% Nicolaides Appeals And Generalist Clerk 6.1 mm CM 9.9 mm >99% Nicolaides [...] Head / Neck Neck. Heart / Thorax 5-wbsyfh-cbqqsra view. Extremities / Right hand. 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 Para 4 [id number] Current ----- --------- Cell free DNA Low [...] 1 lb 0 oz EFW by Hadlock ([id number]) Head / Face / Neck Biometry: Cephalic index 0.70 <1% Nicolaides Appeals And Generalist Clerk 6.1 mm CM 9.9 mm >99% Nicolaides [...] Head / Neck Neck. Heart / Thorax 8-ysredk-cdcwktu view. Extremities / Right hand. Skeleton Maternal [...] 1.01 cm. Recommendations ----- --------- Please see [facility] documentation from today. The patient is scheduled in four to six week(s) to complete anatomicsurvey. Subsequent follow up or other follow up as clinically determined byprimary OB provider unless otherwise specified by [facility]. Results forwarded to ordering provider so [...] documented as of this encounter Care Teams Boring Mill Set Up Operator Relationship Specialty Start Date End Date Jaime Wyatt, SADAF [address] [place], [place] [phone] PCP - General Physician Hvac Controls Technician 03/18/18 documented as of this encounter
--- OUTSIDE RECORDS SUMMARY | 2024-11-30 20:17 | XMS_ITS | Clinical Summary ---
Author Organization [facility] Address [address] [place] [address] Care Team Providers Care Director Radio Name Role Phone Jaime Wyatt FERMIN Unavailable [...] Plus Multivitamin) 27-1 MG tabletIndication s:First trimester ([facility]) Take 1 tablet by mouth Daily 30 tablet 11 04/29/2024 Active EPINEPHrine (Epipen) 0.3 MG/0.3ML injection syringe 08/29/2024 Active Flonase Allergy Relief 50 MCG/ACT nasal spray 1 (one) time each day at the same time 06/04/2024 Active loratadine (Claritin) 10 MG tablet 1 (one) time each day at the same time 06/04/2024 Active Active Problems Problem Noted Date Diagnosed Date Third trimester ([facility]) 11/23/2024 34 weeks gestation of ([facility]) 2024 Family history of trisomy 13 09/30/2023 Estimated Date of Delivery Comme nts Yes 12/29/2024 Based on last me nstrual period of 03/24/2024 Encounters Date Type Department Care Team Description 11/30/2024 1:10 PM EDT Routine [facility] OB [address] [place] [address] [place] [address] Dave Ortiz, Third trimester ([facility]); 35 weeks gestation of ([facility]) 11/30/2024 Bamboo flowsheet [facility] [address] [place] [address] Dave Ortiz, 11/24/2024 Clinisync Result Encounter [facility] External Department Unsolicited Dave Ortiz, 11/23/2024 2:20 PM EDT Routine [facility] [place] [address] [place] [address] Dave Ortiz, Third trimester ([facility]); 34 weeks gestation of ([facility]) 11/23/2024 Bamboo flowsheet [facility] [address] [place] [address] Dave Ortiz, 11/17/2024 Clinisync Result Encounter [facility] External Department Unsolicited Dave Ortiz, 11/17/2024 Abstract [facility] [place] [address] [place] [address] Dave Ortiz, DO 11/16/2024 Abstract [facility] [place] [address] [place] [address] Dave Ortiz, 11/12/2024 Patient Outreach [facility] [address] [place] [address] [place] ElenaLISHA 11/10/2024 11:00 AM EDT Routine [facility] [address] [place] [address] Dave Ortiz, DO 33 weeks gestation of ([facility]); Third trimester ([facility]) 11/10/2024 Clinisync Result Encounter [facility] External Department Unsolicited Dave Ortiz, DO 11/10/2024 Bamboo flowsheet [facility] [address] [place] [address] Dave Ortiz, DO 11/06/2024 Clinisync Result Encounter [facility] External Department Unsolicited Dave Ortiz, DO 11/03/2024 Clinisync Result Encounter [facility] External Department Unsolicited Dave Ortiz, DO 11/03/2024 Clinisync Result Encounter [facility] External Department Unsolicited Dave Ortiz, DO 10/26/2024 11:20 AM EDT Routine [facility] [address] [place] [address] Dave Ortiz, DO 30 weeks gestation of ([facility]); Third trimester ([facility]); Nadia cisterna magna ([facility]); 28 weeks gestation of ([facility]); SGA (small for gestational age) ([facility]) 10/26/2024 Clinisync Result Encounter [facility]OM[facility] External Department Unsolicited Dave Ortiz, DO 10/26/2024 Bamboo flowsheet [facility] [address] [place] [address] Dave Ortiz, DO 10/20/[address] Tele[address] [facility] [address] [place] [address] Dave Ortiz, DO 10/19/2024 11:30 AM EDT Ancillary Procedure [facility] [address] [place] [address] Nadia cisterna magna (HCC) 10/18/2024 Travel 10/12/2024 9:20 AM EDT Routine [facility] OB [address] [place] [address] Dave Ortiz, Third trimester ([facility]); 28 weeks gestation of ([facility]); Nadia cisterna magna ([facility]) 10/12/2024 Patient Outreach [facility] [address] [place] [address] Elena Felix, STRING TOP SEALER 10/12/2024 Bamboo flowsheet [facility] OB [address] [facility] [place] [address] Dave Ortiz, DO 09/29/2024 Orders Only [facility] OB [address] [place] [address] Destinee Vazquez, STRING TOP SEALER 09/29/2024 Abstract [facility] OB [address] [place] [address] Dave Ortiz, 09/10/2024 11:10 AM EDT Routine [facility] OB [address] [place] [address] Dave Ortiz, Well woman exam with routine gynecological exam; STD exposure; Vaginal discharge; Second trimester ([facility]); 24 weeks gestation of ([facility]) 09/10/2024 Clinisync Result Encounter [facility]OMS External Department Unsolicited Dave Ortiz, 09/10/2024 External Result Encounter [facility]S External Department Unsolicited Dave Ortiz, DO 09/10/2024 Bamboo flowsheet [facility] OB [address] [place] [address] Dave Ortiz, 09/08/2024 Patient Outreach [facility] [address] [place] [address] Elena Felix, STRING TOP SEALER 09/07/2024 Abstract [facility] OB [address] [facility] [place] [address] Dave Ortiz DO 09/07/2024 Clinisync Result Encounter [facility] External Department Unsolicited Dave Ortiz DO 09/07/2024 Telephone [facility] OB [address] [facility] [place] [address] Dave Ortiz DO from Last 3 [...] Description 12/07/2024 1:00 PM EDT Routine [facility] [place] [address] Dave Ortiz DO [address] [place], [place] [address] [address] Health Maintenance Due Date Last Done Comments [...] Routine 11/30/2024 2:02 PM EDT Third trimester ([facility]) US OB BPP W NON-STRESS 11/24/2024 9:42 AM EDT POCT URINALYSIS DIPSTICK Routine 11/23/2024 2:58 PM EDT Third trimester ([facility]) US OB BPP W NON-STRESS 11/17/2024 10:17 AM EDT POCT URINALYSIS DIPSTICK Routine 11/10/2024 10:32 AM EDT 33 weeks gestation of ([facility]) Third trimester ([facility]) US OB BPP W NON-STRESS 11/10/2024 10:08 AM EDT US OB BPP W NON-STRESS 11/06/2024 2:00 PM EDT US OB GROWTH 11/03/2024 4:34 PM EDT US OB BPP W NON-STRESS 11/03/2024 3:31 PM EDT ALL CBC WITH AUTO DIFF Routine 12:52 PM EDT [facility] CMP (CMP) (FOR REMOTE [facility] USE) Routine 10/26/2024 12:52 PM EDT POCT URINALYSIS DIPSTICK Routine 10/26/2024 11:52 AM EDT 30 weeks gestation of ([facility]) Third trimester ([facility]) US OB FOLLOW UP TRANSABDOMINAL APPROACH Routine 10/19/2024 11:56 AM EDT Nadia cisterna magna (HCC) POCT URINALYSIS DIPSTICK Routine 10/12/2024 9:39 AM EDT Third trimester ([facility]) POCT URINALYSIS DIPSTICK Routine 09/14/2024 10:18 AM EDT 24 weeks gestation of ([facility]) RECURRENT VAGINITIS (HTRX) Routine 09/10/2024 12:23 PM EDT IGP,APTIMA HPV,AGE GDLN Routine 09/11/19 11:42 AM EDT PAP SMEAR Routine 09/10/2024 12:00 AM EDT GLUCOSE 1 HOUR Routine 09/07/2024 11:45 AM EDT ALL CBC WITH AUTO DIFF Routine 11:45 AM EDT from Last 3 Months Results * (ABNORMAL) POCT urinalysis dipstick manually resulted (11/30/2024 2:02 PM EDT) Only the most recent of6 resultswithin the time period is included. Color, [...] - Positive Urine 11/30/2024 2:02 PM EDT us Dave Diana DO POINT OF CARE TEST ENTER/EDIT OR DERABLES Final Result * US OB BPP W NON-STRESS (11/24/2024 9:42 AM EDT) Only the most recent of5 resultswithin the time period is included. Anatomical Region Laterality Modality Other 11/24/2024 9:42 AM EDT Narrative 11/24/2024 9:[place] [address] Ultrasound Report Signed Patient: ZULEIKA WYATT MR#: [id number] : 1990 Acct:[id number] Age/Sex: 34 / F ADM Date: 11/24/24 Loc: [facility] 250-[address]: Dave Ortiz D.O. Ordering Physician: Dave Ortiz D.O. Date of Service: 11/24/24 Procedure(s): US OB BPP w non-stress Accession Number(s): [id number] cc: Dave Ortiz D.O.; Ramon Avila M.D. [place] [address] Patient Name: ZULEIKA WYATT MRN: [id number] date: 1990 Sex: F Assigned Patient Location: [facility] Current Patient Location: [facility] Accession/Order Number: [id number] Exam Date: 11/24/2024 09:41 Report Date: 11/24/2024 [...] Mahan M.D. 11/24/2024 9:42 AM Dictation Location: [place] [address] Electronically authenticated by: [id number] Y Date: 11/24/2024 09:42 Dictated By: Adela Mahan M.D. Signed By: 11/24/2445 DD/ 1 TD/TT: Chalk Cutter: Procedure Note Radiology, Radiologist, - 11/24/2024 [place] [address] Ultrasound Report Signed Patient: ZULEIKA WYATT LMR#: [id number] : 1990Acct:[id number] Age/Sex: 34 / FADM Date: 11/24/24 Loc: [facility] 250-[address]: Dave Ortiz D.O. Ordering Physician: Dave Otriz D.O. Date of Service: 11/24/24 Procedure(s): US OB BPP w non-stress Accession Number(s): [id number] cc: Dave Ortiz D.O.; Ramon Avila M.D. The [address] [id number] Patient Name: ZULEIKA WYATT MRN: [id number] date: 1990 Sex: F Assigned Patient Location: [facility] Current Patient Location: [facility] Accession/Order Number: [id number] Exam Date: 11/24/2024 09:41 Report Date: 11/24/2024 [...] Mahan M.D. 11/24/2024 9:42 AM Dictation Location: [place] [address] Electronically authenticated by: [id number] Y Date: 9:42 Dictated By: Adela Mahan M.D. Signed By:11/24/2445 DD/ TD/TT: Chalk Cutter: us Dave Ortiz DO [facility] IMAGING Final Result * US OB GROWTH (11/03/2024 4:34 PM EDT) Anatomical Region Laterality Modality Other 11/03/2024 4:34 PM EDT Narrative 11/03/2024 4:36 [place] [address] Ultrasound Report Signed Patient: ZULEIKA WYATT MR#: [id number] : 1990 Acct:[id number] Age/Sex: 34 / F ADM Date: 11/03/24 Loc: US Attending Dr: Dave Ortiz D.O. Ordering Physician: Dave Ortiz D.O. Date of Service: 11/03/24 Procedure(s): US OB growth Accession Number(s): [id number] cc: Dave Ortiz D.O.; Ramon Avila M.D. [address] [address] Patient Name: ZULEIKA WYATT MRN: [id number] date: 1990 Sex: F Assigned Patient Location: Current Patient Location: Accession/Order Number: [id number] Exam Date: 11/03/2024 16:30 Report Date: 11/03/2024 [...] Boyce M.D. 11/03/2024 4:34 PM Dictation Location: [place] [address] Electronically authenticated by: [id number] Y Date: 11/03/2024 16:34 Dictated By: Aaron Boyce D.O. Signed By: 11/03/24 1636 DD/ 163 TD/TT: Chalk Cutter: Procedure Note Radiology, Radiologist, - 11/03/2024 [place] [address] Ultrasound Report Signed Patient: ZULEIKA WYATT LMR#: [id number] : 1990Acct:[id number] Age/Sex: 34 / FADM Date: 11/03/24 Loc: US Attending Dr: Dave Ortiz D.O. Ordering Physician: Dave Ortiz D.O. Date of Service: 11/03/24 Procedure(s): US OB growth Accession Number(s): [id number] cc: Dave Ortiz D.O.; Ramon Avlia M.D. The [address] [address] Patient Name: ZULEIKA WYATT MRN: [id number] date: 1990 Sex: F Assigned Patient Location: US Current Patient Location: Accession/Order Number: [id number] Exam Date: 11/03/2024 16:30 Report Date: 11/03/2024 [...] Boyce M.D. 11/03/2024 4:34 PM Dictation Location: [place] [address] Electronically authenticated by: [id number] Y Date: 6:34 Dictated By: Aaron Boyce D.O. Signed By:11/03/24 1636 DD/ 1634 TD/TT: Chalk Cutter: us Dave Ortiz DO [facility] IMAGING Final Result * (ABNORMAL) [facility] CMP (CMP) (FOR REMOTE [facility] USE) (10/26/2024 12:52 PM EDT) SODIUM [...] 0.55 - 1.02 mg/dL TBH TBH EGFR-AF ZAMBIAN >60 >=60 mL/min/1. 73m 2 TBH TBH EGFR-NON AF ZAMBIAN >60 >=60 mL/min/1. 73m 2 TBH BUN [...] - 10/26/2024 1:29 PM EDT us Dave Ortiz DO [facility] Final Result [facility] * (ABNORMAL) ALL CBC WITH AUTO DIFF [...] us Dave Diana DO [facility] Final Result [facility] * US OB follow up transabdominal approach [...] II, MD, PHD at 21-Oct-2024 08:41:57 AM [facility] Procedure Note Eloisa Gonzalez MD - [...] signed by ELOISA GONZALEZ II, MD, PHD [id number] 08:41:57 AM [facility] us Dave Diana DO IMG OB US PROCEDURES Final Resul t * RECURRENT VAGINITIS (HTRX) (09/10/2024 12:23 PM EDT) [facility] ATOPOBIUM VAGINAE 0.000 19.961 - 24.689 ppm [...] ppm 09/11/2024 6:30 AM EDT [facility] JEREMY KRUSEI Not Detected 23.000 - 32.271 ppm 09/11/2024 6:30 AM EDT [facility] CHLAMYDIA TRACHOMATIS 0.000 23.000 - 31.467 ppm 09/11/2024 6:30 AM EDT [facility] CHLAMYDIA TRACHOMATIS Not Detected 23.000 - 31.467 ppm 09/11/2024 6:30 AM EDT [facility] GARDNERELLA VAGINALIS 0.000 19.961 - 24.689 ppm 09/11/2024 6:30 AM EDT [facility] GARDNERELLA VAGINALIS Not Detected 19.961 - 24.689 ppm 09/11/2024 6:30 AM EDT [facility] MEGASPHAERA (TYPES 1, 2) 0.000 19.961 - 24.689 ppm 09/11/2024 6:30 AM EDT [facility] MEGASPHAERA (TYPES 1, 2) Not Detected 19.961 - 24.689 ppm 09/11/2024 6:30 AM EDT [facility] NEISSERIA GONORRHOEAE 0.000 23.000 - 32.117 ppm 09/11/2024 6:30 AM EDT [facility] NEISSERIA GONORRHOEAE Not Detected 23.000 - 32.117 ppm 09/11/2024 6:30 AM EDT [facility] TRICHOMONAS VAGINALIS 0.000 23.000 - 32.119 ppm 09/11/2024 6:30 AM EDT [facility] TRICHOMONAS VAGINALIS Not Detected 23.000 - 32.119 ppm 09/11/2024 6:30 AM EDT [facility] MYCOPLASMA GENITALIUM 0.000 19.961 - 24.689 ppm 09/11/2024 6:30 AM EDT [facility] MYCOPLASMA GENITALIUM Not Detected 19.961 - 24.689 ppm 09/11/2024 6:30 AM EDT [facility] Tissue 09/10/2024 12:2 3 PM EDT 09/11/2024 1:40 AM EDT us Dave Ortiz DO LAB BLOOD ORDERABLES Final Resul t [facility] [place] [address] * IGP,APTIMA HPV,AGE GDLN (09/10/2024 11:42 AM EDT) AGE GDLN ACOG TESTING Note . [facility] Comment: TESTS RESULT FLAG UNITS REF RANGE LAB Clinician Provided Cytology Information Source.............[facility] Other.............. No. of containers..01 ThinPrep Vial Age Algo ACOG Krista... 30-65 01 FLAG LEGEND: L-Low Normal,H-High Normal,LL-Alert Low,HH-Alert High <-Panic Low,>-Panic High,A-Abnormal,AA-Critical Abnormal Performed at: 01 =G [facility] [place] [address] Joann Denney MD, IGP, APTIMA HPV, RFX 16/18,45 Note . [facility] Comment: TESTS RESULT FLAG UNITS REF RANGE LAB DIAGNOSIS: 02 NEGATIVE FOR INTRAEPITHELIAL LESION OR MALIGNANCY. Specimen adequacy: 02 Satisfactory for evaluation. No endocervical component is identified. An endocervical component is not commonly seen in the patient. Performed by: 02 Mindy Martel Otolaryngology Surgeon (ASCP) . 02 Note: Note 02 The [...] Low,>-Panic High,A-Abnormal,AA-Critical Abnormal Performed at: [address] [facility], [place] [address] Joann Denney MD, HPV APTIMA Negative Negative [facility] Comment: This nucleic acid amplification test detects fourteen high- risk HPV types (16,18,31,33,35,39,45,51,52,56,58,59,66,68) without differentiation. Performed at: =G - [facility] [address], [place] [id number] Valve And Regulator Repairer: Joann Denney MD, Phone: [phone] Performed at: [address] [id number] Valve And Regulator Repairer: Joann Denney MD, Phone: [phone] 09/10/2024 11:4 2 AM EDT 09/10/2024 3:18 PM EDT Narrative CLINISYNC - 09/14/2024 12:08 PM EDT [facility] Dave Diana DO LAB BLOOD ORDERABLES Final Resul t [facility] TB * Pap Smear (09/10/2024 12:00 AM EDT) Swab Cervical swab / Unknown [facility] Ob Diana Nurse LAB CYTOLOGY ORDERABLES Final Result EXTERNAL LAB * GLUCOSE 1 HOUR (09/07/2024 11:45 AM EDT) GLUCOSE 1 HOUR 102 <130 mg/dL TB 09/07/2024 11:4 5 AM EDT 09/07/2024 11:55 AM EDT Narrative [facility]INIS[facility] - 09/07/2024 12:52 PM EDT Dave Diana DO LAB BLOOD ORDERABLES Final Resul t [facility] TB from Last 3 Months Additional Health Concerns Active Problems Noted Date Diagnosed Date OB Reminders 06/23/2024 Insurance * Guarantor: Zuleika Wyatt Account Type Relation to Patient Date of Phone Billing Address Personal/Family Self 1990 [address] [place] [address] [employer] [place] Care Teams Director Radio Relationship Specialty Start Date End Date Unallocated, Noms Provider, [address] [place], [place] [phone] PCP - General 03/04/23 Jaime Wyatt PA [address] [place] [address] Referring Physician Physical Medicine and Rehabilitation 03/04/23
--- OUTSIDE RECORDS SUMMARY | 2024-11-30 20:17 | XMS_ITS | Encounter Summary ---
Author Organization [facility] Address [address] [facility] [place] [address] Care Team Providers Care Switch Engineer Name Role Phone Yoselin Jaime FERMIN Unavailable Unallocated, Noms Provider Primary Care Provi kwabena Encounter Details Date Type Department Care Team (Late st Contact Info) Description 10/21/2023 Clinisync Result Encounter [facility]OM[facility] External Department Unsolicited Dave Ortiz, [facility] [place], [place] [address] Social History Tobacco Use Types Packs/Day Years [...] [facility] BCP OB [address] [place] [phone] Dave Ortiz DO [facility] [place] [address] documented as of this encounter Procedures Procedure Name Priority Date/Time Associated Diagnosis Comments US OB BPP W NON-STRESS 10/21/2023 7:34 AM EDT documented in this encounter Results * US OB BPP W NON-STRESS (10/21/2023 7:34 AM EDT) Anatomical Region Laterality Modality Other 10/21/2023 7:34 AM EDT Narrative 10/21/2023 7:37 [place] [address] Ultrasound Report Signed Patient: ZULEIKA WADDELL MR#: [id number] : 1990 Acct:[id number] Age/Sex: 33 / F ADM Date: 10/19/23 Loc: [facility] Attending Dr: Dave Ortiz D.O. Ordering Physician: Dave Ortiz D.O. Date of Service: 10/19/23 Procedure(s): US OB BPP w non-stress Accession Number(s): [id number] cc: Dave Ortiz D.O.; Jaime Waddell [place] [address] Patient Name: ZULEIKA WADDELL MRN: [id number] date: 1990 Sex: F Assigned Patient Location: [facility] Current Patient Location: [facility] Accession/Order Number: [id number] Exam Date: 10/19/2023 14:53 Report Date: 10/21/2023 [...] M.D. Signed By: 0537 DD/ 3 TD/TT: Infection Control Manager: Procedure Note Radiology, Radiologist, - 10/21/2023 The [place] [id number] Ultrasound Report Signed Patient: ZULEIKA WADDELL LMR#: [id number] : 1990Acct:[id number] Age/Sex: 33 / FADM Date: 10/19/23 Loc: [facility] Attending Dr: Dave Ortiz D.O. Ordering Physician: Dave Ortiz D.O. Date of Service: 10/19/23 Procedure(s): US OB BPP w non-stress Accession Number(s): [id number] cc: Dave Ortiz D.O.; Jaime Waddell [place] [id number] Patient Name: ZULEIKA WADDELL MRN: [facility]:[id number] date: 1990 Sex: F Assigned Patient Location: [facility] Current Patient Location: [facility] Accession/Order Number: [id number] Exam Date: 10/19/2023 14:53 Report Date: 10/21/2023 [...] M.D. Signed By:10/21/23 0737 DD/ 3 TD/TT: Infection Control Manager: us Dave Ortiz DO [facility] IMAGING Final Result documented in this encounter Visit Diagnoses Not on filedocumented in this encounter Care Teams Switch Engineer Relationship Specialty Start Date End Date Unallocated, Noms Provider, [address] [place] [address] PCP - General 03/04/23 Jaime Waddell PA [address] [place], [place] [phone] Referring Physician Physical Medicine and Rehabilitation 03/04/23 documented as of this encounter
--- OUTSIDE RECORDS SUMMARY | 2024-11-30 20:17 | XMS_ITS | Encounter Summary ---
Author Organization [facility] Address [address] [facility] [place] [address] Care Team Providers Care Manufacturing Intern Name Role Phone Yoselin Jaime FERMIN Unavailable Unallocated, Noms Provider Primary Care Provi kwabena Encounter Details Date Type Department Care Team (Late st Contact Info) Description 11/17/2024 Clinisync Result Encounter [facility] External Department Unsolicited Dave Ortiz, DO [address] [place] [address] Social History Tobacco Use Types Packs/Day Years [...] Description 12/07/2024 1:00 PM EDT Routine [facility] OB [address] [place] [address] Dave Ortiz, DO [address] [place] [address] (work) documented as of this encounter Goals [...] AM EDT Narrative 11/17/2024 10:19 [place] [address] Ultrasound Report Signed Patient: ZULEIKA WADDELL MR#: [id number] : 1990 Acct:[id number] Age/Sex: 34 / F ADM Date: 11/17/24 Loc: US Attending Dr: Dave Ortiz D.O. Ordering Physician: Dave Ortiz D.O. Date of Service: 11/17/24 Procedure(s): US OB BPP w non-stress Accession Number(s): [id number] cc: Dave Ortiz D.O.; Ramon Avila M.D. [address] [address] Patient Name: ZULEIKA WADDELL MRN: [id number] date: 1990 Sex: F Assigned Patient Location: [facility] Current Patient Location: Accession/Order Number: [id number] Exam Date: 11/17/2024 10:16 Report Date: 11/17/2024 [...] Mahan M.D. 11/17/2024 10:17 AM Dictation Location: [place] [address] Electronically authenticated by: [id number] Y Date: 11/17/2024 10:17 Dictated By: Adela Mahan M.D. Signed By: 11/17/24 1019 DD/ 1017 TD/TT: Biofuels Processing Technician: Procedure Note Radiology, Radiologist, MD - 11/17/2024 [place] [address] Ultrasound Report Signed Patient: ZULEIKA WADDELL LMR#: [id number] : 1990Acct:[id number] Age/Sex: 34 / FADM Date: 11/17/24 Loc: US Attending Dr: Dave Ortiz D.O. Ordering Physician: Dave Ortiz D.O. Date of Service: 11/17/24 Procedure(s): US OB BPP w non-stress Accession Number(s): [id number] cc: Dave Ortiz D.O.; Ramon Avila M.D. The [place] [address] Patient Name: ZULEIKA WADDELL MRN: [facility]:[id number] date: 1990 Sex: F Assigned Patient Location: [facility] Current Patient Location: Accession/Order Number: [id number] Exam Date: 11/17/2024 10:16 Report Date: 11/17/2024 [...] Mahan M.D. 11/17/2024 10:17 AM Dictation Location: [place] [address] Electronically authenticated by: [id number] Y Date: 0:17 Dictated By: Adela Mahan M.D. Signed By:11/17/24 1019 DD/ 1017 TD/TT: Biofuels Processing Technician: us Dave Ortiz DO [facility] IMAGING Final Result documented in this encounter Visit Diagnoses Not on filedocumented in this encounter Additional Health Concerns Active Problems Noted Date Diagnosed Date OB Reminders 06/23/2024 documented as of this encounter Care Teams Manufacturing Intern Relationship Specialty Start Date End Date Unallocated, Noms Provider, [address] [place] [address] PCP - General 03/04/23 Jaime Waddell PA [address] [place] [address] Referring Physician Physical Medicine and Rehabilitation 03/04/23 documented as of this encounter
--- OUTSIDE RECORDS SUMMARY | 2024-11-30 20:17 | XMS_ITS | Encounter Summary ---
Author Organization [facility] Address [address] [facility] [place] [address] Care Team Providers Care Handkerchief Sample Clerk Name Role Phone Yoselin Jaime FERMIN Unavailable Unallocated, Noms Provider Primary Care Provi kwabena Encounter Details Date Type Department Care Team (Late st Contact Info) Description 11/06/2023 Clinisync Result Encounter NOMS External Department Unsolicited Dave Ortiz, [facility] [place], [place] [address] Social History Tobacco Use Types Packs/Day Years [...] Routine NOMS BCP OB [address] [place] [id number] Dave Ortiz DO [facility] [place] [address] documented as of this encounter Procedures Procedure Name Priority Date/Time Associated Diagnosis Comments US OB GROWTH 11/06/2023 3:54 PM EDT documented in this encounter Results * US OB GROWTH (11/06/2023 3:54 PM EDT) Anatomical Region Laterality Modality Other 11/06/2023 3:54 PM EDT Narrative 11/06/2023 3:57 [place] [address] Ultrasound Report Signed Patient: ZULEIKA WADDELL MR#: [id number] : 1990 Acct:[id number] Age/Sex: 33 / F ADM Date: 11/06/23 Loc: US Attending Dr: Dave Ortiz D.O. Ordering Physician: Dave Ortiz D.O. Date of Service: 11/06/23 Procedure(s): US OB growth Accession Number(s): [id number] cc: Dave Ortiz D.O.; Jaime Waddell [place] [address] Patient Name: ZULEIKA WADDELL MRN: [id number] date: 1990 Sex: F Assigned Patient Location: US Current Patient Location: Accession/Order Number: [id number] Exam Date: 11/06/2023 14:19 Report Date: 11/06/2023 [...] M.D. Signed By: 11/06/231556 DD/ 53 TD/TT: Quality Analyst/Technical Writer: Procedure Note Radiology, Radiologist, MD - 11/06/2023 [place] [address] Ultrasound Report Signed Patient: ZULEIKA WADDELL LMR#: [id number] : 1990Acct:[id number] Age/Sex: 33 FADM Date: 11/06/23 Loc: US Attending Dr: Dave Ortiz D.O. Ordering Physician: Dave Ortiz D.O. Date of Service: 11/06/23 Procedure(s): US OB growth Accession Number(s): [id number] cc: Dave Ortiz D.O.; Jaime Waddell [place] [address] Patient Name: ZULEIKA WADDELL MRN: [id number] date: 1990 Sex: F Assigned Patient Location: US Current Patient Location: Accession/Order Number: [id number] Exam Date: 11/06/2023 14:19 Report Date: 11/06/2023 [...] M.D. Signed By:11/06/23 1557 DD/ 53 TD/TT: Quality Analyst/Technical Writer: us Dave Diana DO [facility] Final Result documented in this encounter Visit Diagnoses Not on filedocumented in this encounter Care Teams Handkerchief Sample Clerk Relationship Specialty Start Date End Date Unallocated, Noms Provider, [address] [place], [place] [address] PCP - General 03/04/23 Jaime Waddell PA [address] [place], [place] [id number] Referring Physician Physical Medicine and Rehabilitation 03/04/23 documented as of this encounter
--- OUTSIDE RECORDS SUMMARY | 2024-11-30 20:17 | XMS_ITS | Encounter Summary ---
Author Organization [facility] Address [address] [facility] [place] [address] Care Team Providers Care Cloth Folder Machine Name Role Phone Yoselin Jaime FERMIN Unavailable Unallocated, Noms Provider Primary Care Provi kwabena Encounter Details Date Type Department Care Team (Late st Contact Info) Description 06/06/2023 Abstract [facility] BCP OB 102 [employer] [place] [address] Destinee Vazquez LPN [address] [employer] [facility] Derek [place] [address] Social History Tobacco Use Types Packs/Day Years [...] PM EDT Routine NOMS BCP OB 102 [employer] [place] [address] Cuong Ortiz DO [address] [facility] [address] [place] [id number] documented as of this encounter Visit Diagnoses Not on filedocumented in this encounter Care Teams Cloth Folder Machine Relationship Specialty Start Date End Date Unallocated, Noms Provider, [address] [place], [place] [address] PCP - General 03/04/23 Jaime Wyatt PA [address] [place], [place] [phone] Referring Physician Physical Medicine and Rehabilitation 03/04/23 documented as of this encounter
--- OUTSIDE RECORDS SUMMARY | 2024-11-30 20:17 | XMS_ITS | Encounter Summary ---
Author Organization [facility] Address [address] [facility] [place] [address] Care Team Providers Care Slitter Service And Setter Name Role Phone Yoselin Jaime FERMIN Unavailable Unallocated, Noms Provider Primary Care Provi kwabena Encounter Details Date Type Department Care Team (Late st Contact Info) Description 11/07/2023 Clinisync Result Encounter NOMS External Department Unsolicited Dave Ortiz, [facility] [place], [place] [address] Social History Tobacco Use Types Packs/Day Years [...] NOMS BCP OB [address] [place] [phone] Dave Ortiz DO [facility] [place] [address] documented as of this encounter Procedures Procedure Name Priority Date/Time Associated Diagnosis Comments US OB BPP W NON-STRESS 11/07/2023 7:10 AM EDT documented in this encounter Results * US OB BPP W NON-STRESS (11/07/2023 7:10 AM EDT) Anatomical Region Laterality Modality Other 11/07/2023 7:10 AM EDT Narrative 11/07/2023 7:13 [place] [address] Ultrasound Report Signed Patient: ZULEIKA WADDELL MR#: [id number] : 1990 Acct:[id number] Age/Sex: 33 / F ADM Date: 11/06/23 Loc: US Attending Dr: Dave Ortiz D.O. Ordering Physician: Dave Ortiz D.O. Date of Service: 11/06/23 Procedure(s): US OB BPP w non-stress Accession Number(s): [id number] cc: Dave Ortiz D.O.; Jaime Waddell [place] [address] Patient Name: ZULEIKA WADDELL MRN: [id number] date: 1990 Sex: F Assigned Patient Location: Current Patient Location: [facility] Accession/Order Number: [id number] Exam Date: 11/06/2023 14:19 Report Date: 11/07/2023 [...] M.D. Signed By: 11/07/23712 DD/ 9 TD/TT: Medical Aide: Procedure Note Radiology, Radiologist, - 11/07/2023 [place] [address] Ultrasound Report Signed Patient: ZULEIKA WADDELL LMR#: [id number] : 1990Acct:[id number] Age/Sex: 33 / FADM Date: 11/06/23 Loc: US Attending Dr: Dave Ortiz D.O. Ordering Physician: Dave Ortiz D.O. Date of Service: 11/06/23 Procedure(s): US OB BPP w non-stress Accession Number(s): [id number] cc: Dave Ortiz D.O.; Jaime Waddell [place] [id number] Patient Name: ZULEIKA WADDELL MRN: [id number] date: 1990 Sex: F Assigned Patient Location: Current Patient Location: [facility] Accession/Order Number: [id number] Exam Date: 11/06/2023 14:19 Report Date: 11/07/2023 [...] Crump M.D. Signed By:11/07/23712 DD/ 9 TD/TT: Medical Aide: us Dave Diana DO [facility] Final Result documented in this encounter Visit Diagnoses Not on filedocumented in this encounter Care Teams Slitter Service And Setter Relationship Specialty Start Date End Date Unallocated, Noms Provider, [address] [place], [place] [address] PCP - General 03/04/23 Jaime Waddell PA [address] [place] [address] Referring Physician Physical Medicine and Rehabilitation 03/04/23 documented as of this encounter
--- OUTSIDE RECORDS SUMMARY | 2024-11-30 20:17 | XMS_ITS | Encounter Summary ---
Author Organization [facility] Address [address] [facility] [place] [address] Care Team Providers Care Negotiator Name Role Phone Yoselin Jaime FERMIN Unavailable Unallocated, Noms Provider Primary Care Provi kwabena Encounter Details Date Type Department Care Team (Late st Contact Info) Description 06/26/2024 Abstract [facility] BCP OB [address] [place] [address] Cuong Ortiz, DO [address] [place], [place] [address] Social History Tobacco Use Types Packs/Day Years [...] Routine NOMS BCP OB [address] [place] [address] Cuong Ortiz, DO [address] [place], [facility]11 documented as of this encounter Goals Goal Patient Goal Type Associated Problems Recent Progress Patient-Stated? Author Reminders Care Plan OB Reminders No Open Scheduling, Background documented as of this encounter Visit Diagnoses Not on filedocumented in this encounter Additional Health Concerns Active Problems Noted Date Diagnosed Date OB Reminders 06/23/2024 documented as of this encounter Care Teams Negotiator Relationship Specialty Start Date End Date Unallocated, Noms Provider, [address] [place], [place] [address] PCP - General 03/04/23 Jaime Wyatt PA [address] [place] [address] Referring Physician Physical Medicine and Rehabilitation 03/04/23 documented as of this encounter
--- OUTSIDE RECORDS SUMMARY | 2024-11-30 20:17 | XMS_ITS | Encounter Summary ---
Author Organization [facility] Address [address] [place] [address] Care Team Providers Care Vp Corporate Partnerships Name Role Phone Yoselin Jaime FERMIN Unavailable Unallocated, Noms Provider Primary Care Provi kwabena Encounter Details Date Type Department Care Team (Late st Contact Info) Description 10/30/2023 Clinisync Result Encounter NOMS External Department Unsolicited Dave Ortiz, DO [facility] [place], [place] [address] Social History Tobacco Use Types Packs/Day Years [...] Routine NOMS BCP OB [address] [place] [address] Dave Ortiz DO [facility] [place] [address] documented as of this encounter Procedures Procedure Name Priority Date/Time Associated Diagnosis Comments US OB BPP W NON-STRESS 10/30/2023 3:23 PM EDT documented in this encounter Results * US OB BPP W NON-STRESS (10/30/2023 3:23 PM EDT) Anatomical Region Laterality Modality Other 10/30/2023 3:23 PM EDT Narrative 10/30/2023 3:25 [place] [address] Ultrasound Report Signed Patient: ZULEIKA WADDELL MR#: [id number] : 1990 Acct:[id number] Age/Sex: 33 / F ADM Date: 10/30/23 Loc: US Attending Dr: Dave Ortiz D.O. Ordering Physician: Dave Ortiz D.O. Date of Service: 10/30/23 Procedure(s): US OB BPP w non-stress Accession Number(s): [id number] cc: Dave Ortiz D.O.; Jaime Waddell [place] [address] Patient Name: ZULEIKA WADDELL MRN: [id number] date: 1990 Sex: F Assigned Patient Location: [facility] Current Patient Location: Accession/Order Number: [id number] Exam Date: 10/30/2023 14:45 Report Date: 10/30/2023 [...] Signed By: 10/30/23 1525 DD/ 22 TD/TT: Frame Pulley Mortising Machine Operator: Procedure Note Radiology, Radiologist, - 10/30/2023 [place] [address] Ultrasound Report Signed Patient: ZULEIKA WADDELL LMR#: [id number] : 1990Acct:[id number] Age/Sex: 33 / FADM Date: 10/30/23 Loc: US Attending Dr: Dave Ortiz D.O. Ordering Physician: Dave Ortiz D.O. Date of Service: 10/30/23 Procedure(s): US OB BPP w non-stress Accession Number(s): [id number] cc: Dave Ortiz D.O.; Jaime Waddell The [place] [address] Patient Name: ZULEIKA WADDELL MRN: [id number] date: 1990 Sex: F Assigned Patient Location: [facility] Current Patient Location: Accession/Order Number: [id number] Exam Date: 10/30/2023 14:45 Report Date: 10/30/2023 [...] M.D. Signed By:10/30/23 152 DD/ 22 TD/TT: Frame Pulley Mortising Machine Operator: us Dave Diana DO [facility] Final Result documented in this encounter Visit Diagnoses Not on filedocumented in this encounter Care Teams Vp Corporate Partnerships Relationship Specialty Start Date End Date Unallocated, Noms Provider, [address] [place] [address] PCP - General 03/04/23 Jaime Waddell PA [address] [place] [address] Referring Physician Physical Medicine and Rehabilitation 03/04/23 documented as of this encounter
--- OUTSIDE RECORDS SUMMARY | 2024-11-30 20:17 | XMS_ITS | Encounter Summary ---
Author Organization [facility] Address [address] [facility] [place] [address] Care Team Providers Care Starting Gate Driver Name Role Phone YoselinJaime FERMIN Unavailable Unallocated, Noms Provider Primary Care Provi kwabena Encounter Details Date Type Department Care Team (Late st Contact Info) Description 04/26/2023 Clinisync Result Encounter NOMS External Department Unsolicited Dave Ortiz, DO [address] [place] [address] Social History Tobacco Use Types Packs/Day Years [...] NOMS BCP OB [address] [place] [address] Dave Ortiz DO [address] [place] [address] documented as of this encounter Procedures Procedure Name Priority Date/Time Associated Diagnosis Comments US OB TRANSVAGINAL 04/26/2023 8: 15 PM EST documented in this encounter Results * US OB TRANSVAGINAL (04/26/2023 8:15 PM EST) Anatomical Region Laterality Modality Other 04/26/2023 8:15 PM EST Narrative 04/26/2023 8:15 PM EST [address] [address] Ultrasound Report Signed Patient: ZULEIKA WADDELL MR#: [id number] : 1990 Acct:[id number] Age/Sex: 33 / F ADM Date: 04/26/23 Loc: US Attending Dr: Dave Ortiz D.O. Ordering Physician: Dave Ortiz D.O. Date of Service: 04/26/23 Procedure(s): US OB transvaginal Accession Number(s): [id number] cc: aDve Ortiz D.O.; Physician,Non-Staff Didi The [address] [address] Patient Name: ZULEIKA WADDELL MRN: [id number] date: 1990 Sex: F Assigned Patient Location: US Current Patient Location: US Accession/Order Number: [id number] Exam Date: 04/26/2023 09:40 Report Date: 04/26/2023 [...] M.D. Signed By: 04/26/232017 DD/ 14 TD/TT: Construction Cost Estimator: Procedure Note Radiology, Radiologist, MD - 04/26/2023 [place] [address] Ultrasound Report Signed Patient: ZULEIKA WADDELL LMR#: [id number] : 1990Acct:[id number] Age/Sex: 33 / FADM Date: 04/26/23 Loc: US Attending Dr: Dave Ortiz D.O. Ordering Physician: Dave Ortiz D.O. Date of Service: 04/26/23 Procedure(s): US OB transvaginal Accession Number(s): [id number] cc: Dave Ortiz D.O.; Physician,Non-Staff Didi The [place] [address] Patient Name: ZULEIKA WADDELL MRN: [id number] date: 1990 Sex: F Assigned Patient Location: US Current Patient Location: US Accession/Order Number: [id number] Exam Date: 04/26/2023 09:40 Report Date: 04/26/2023 [...] Dawn M.D. Signed By:04/26/232017 DD/ 14 TD/TT: Construction Cost Estimator: us Dave Ortiz DO [facility] Final Result documented in this encounter Visit Diagnoses Not on filedocumented in this encounter Care Teams Starting Gate Driver Relationship Specialty Start Date End Date Unallocated, Noms Provider, [address] [place] [address] PCP - General 03/04/23 Jaime Waddell PA [address] [place], [place] [address] Referring Physician Physical Medicine and Rehabilitation 03/04/23 documented as of this encounter
--- OUTSIDE RECORDS SUMMARY | 2024-11-30 20:17 | XMS_ITS | Encounter Summary ---
Author Organization [facility] Address [address] [facility] [place] [address] Care Team Providers Care Aircraft Parts Assembler Name Role Phone Yoselin Jaime FERIMN Unavailable Unallocated, Noms Provider Primary Care Provi kwabena Encounter Details Date Type Department Care Team (Late st Contact Info) Description 10/24/2023 Clinisync Result Encounter NOMS External Department Unsolicited Dave Ortiz, [facility] [place], [place] [address] Social History Tobacco Use Types Packs/Day Years [...] NOMS BCP OB [address] [place] [address] Dave Ortiz DO [facility] [place] [address] documented as of this encounter Procedures Procedure Name Priority Date/Time Associated Diagnosis Comments US OB BPP W NON-STRESS 10/24/2023 7:37 AM EDT documented in this encounter Results * US OB BPP W NON-STRESS (10/24/2023 7:37 AM EDT) Anatomical Region Laterality Modality Other 10/24/2023 7:37 AM EDT Narrative 10/24/2023 7:40 [place] [address] Ultrasound Report Signed Patient: ZULEIKA WADDELL MR#: [id number] : 1990 Acct:[id number] Age/Sex: 33 / F ADM Date: 10/23/23 Loc: US Attending Dr: Dave Ortiz D.O. Ordering Physician: Dave Ortiz D.O. Date of Service: 10/23/23 Procedure(s): US OB BPP w non-stress Accession Number(s): [id number] cc: Dave Ortiz D.O.; Jaime Waddell [place] [address] Patient Name: ZULEIKA WADDELL MRN: [id number] date: 1990 Sex: F Assigned Patient Location: US Current Patient Location: Accession/Order Number: [id number] Exam Date: 10/23/2023 15:25 Report Date: 10/24/2023 [...] M.D. Signed By: 10/24/23739 DD/ 6 TD/TT: Ammonia Distiller: Procedure Note Radiology, Radiologist, - 10/24/2023 [place] [address] Ultrasound Report Signed Patient: ZULEIKA WADDELL LMR#: [id number] : 1990Acct:[id number] Age/Sex: 33 / FADM Date: 10/23/23 Loc: US Attending Dr: Dave Ortiz D.O. Ordering Physician: Dave Ortiz D.O. Date of Service: 10/23/23 Procedure(s): US OB BPP w non-stress Accession Number(s): [id number] cc: Dave Ortiz D.O.; Jaime Waddell [place] [phone] Patient Name: ZULEIKA WADDELL MRN: [facility]:[id number] date: 1990 Sex: F Assigned Patient Location: US Current Patient Location: US Accession/Order Number: [id number] Exam Date: 10/23/2023 15:25 Report Date: 10/24/2023 [...] Dawn M.D. Signed By:10/24/2340 DD/ 6 TD/TT: Ammonia Distiller: us Dave Ortiz DO [facility] Final Result documented in this encounter Visit Diagnoses Not on filedocumented in this encounter Care Teams Aircraft Parts Assembler Relationship Specialty Start Date End Date Unallocated, Noms Provider, [address] [place], [place] [address] PCP - General 03/04/23 Jaime Waddell PA [address] [place] [address] Referring Physician Physical Medicine and Rehabilitation 03/04/23 documented as of this encounter
--- OUTSIDE RECORDS SUMMARY | 2024-11-30 20:17 | XMS_ITS | Encounter Summary ---
Author Organization [facility] Address [address] [facility] [place] [address] Care Team Providers Care Senior Operator Name Role Phone Yoselin Jaime FERMIN Unavailable Unallocated, Noms Provider Primary Care Provi kwabena Encounter Details Date Type Department Care Team (Late st Contact Info) Description 10/10/2023 Clinisync Result Encounter NOMS External Department Unsolicited Dave Ortiz, [facility] [place], [place] [address] Social History Tobacco Use Types Packs/Day Years [...] NOMS BCP OB [address] [place] [address] Dave Ortiz DO [place] [address] documented as of this encounter Procedures Procedure Name Priority Date/Time Associated Diagnosis Comments US OB BPP W NON-STRESS 10/10/2023 7:13 AM EDT documented in this encounter Results * US OB BPP W NON-STRESS (10/10/2023 7:13 AM EDT) Anatomical Region Laterality Modality Other 10/10/2023 7:13 AM EDT Narrative 10/10/2023 7:15 [place] [address] Ultrasound Report Signed Patient: ZULEIKA WADDELL MR#: [id number] : 1990 Acct:[id number] Age/Sex: 33 / F ADM Date: 10/09/23 Loc: US Attending Dr: Dave Ortiz D.O. Ordering Physician: Dave Ortiz D.O. Date of Service: 10/09/23 Procedure(s): US OB BPP w non-stress Accession Number(s): [id number] cc: Dave Ortiz D.O.; Jaime Waddell [place] [address] Patient Name: ZULEIKA WADDELL MRN: [id number] date: 1990 Sex: F Assigned Patient Location: US Current Patient Location: US Accession/Order Number: [id number] Exam Date: 10/09/2023 15:20 Report Date: 10/10/2023 [...] M.D. Signed By: 04/714 DD/ 2 TD/TT: Mannequin Sander And Finisher: Procedure Note Radiology, Radiologist, - 10/10/2023 [place] [address] Ultrasound Report Signed Patient: ZULEIKA WADDELL LMR#: [id number] : 1990Acct:[id number] Age/Sex: 33 / FADM Date: 10/09/23 Loc: US Attending Dr: Dave Ortiz D.O. Ordering Physician: Dave Ortiz D.O. Date of Service: 10/09/23 Procedure(s): US OB BPP w non-stress Accession Number(s): [id number] cc: Dave Ortiz D.O.; Jaime Waddell The [place] [phone] Patient Name: ZULEIKA WADDELL MRN: [id number] date: 1990 Sex: F Assigned Patient Location: US Current Patient Location: US Accession/Order Number: [id number] Exam Date: 10/09/2023 15:20 Report Date: 10/10/2023 [...] Dawn M.D. Signed By:10/10/23714 DD/ 2 TD/TT: Mannequin Sander And Finisher: us Dave Ortiz DO [facility] Final Result documented in this encounter Visit Diagnoses Not on filedocumented in this encounter Care Teams Senior Operator Relationship Specialty Start Date End Date Unallocated, Noms Provider, [address] [place] [address] PCP - General 03/04/23 Jaime Waddell PA [address] [place] [address] Referring Physician Physical Medicine and Rehabilitation 03/04/23 documented as of this encounter
--- OUTSIDE RECORDS SUMMARY | 2024-11-30 20:18 | XMS_ITS | Encounter Summary ---
Author Organization [facility] Address [address] [facility] [place] [address] Care Team Providers Care Lawyer Real Estate Name Role Phone Jaime Wyatt [place] Unavailable Unallocated, Noms Provider Primary Care Provi kwabena Encounter Details Date Type Department Care Team (Late st Contact Info) Description 12/19/[address] [facility] [address] [facility] [address] [place] [address] Aredn Orozco, DO [address] [facility] [address] [place] [address] Social History Tobacco Use Types [...] [place] [address] Cuong Ortiz DO [address] [place] [address] documented as of this encounter Visit Diagnoses Not on filedocumented in this encounter Care Teams Lawyer Real Estate Relationship Specialty Start Date End Date Unallocated, Noms Provider, [place] [place] [address] PCP - General 03/04/23 Jaime Wyatt PA [address] [place] [address] Referring Physician Physical Medicine and Rehabilitation 03/04/23 documented as of this encounter
--- OUTSIDE RECORDS SUMMARY | 2024-11-30 20:18 | XMS_ITS | Encounter Summary ---
Author Organization [facility] Address [address] [place] [address] Care Team Providers Care Certified Medical Asst Name Role Phone Unavailable Primary Care Provider Unavailabl e Source Comments In the event this information is protected by the Federal Confidentiality of Alcohol and Drug AbusePatient Records regulations: The Federal rules restrict any use of the information to criminally investigate or prosecute any alcohol or drug abuse patient.[facility] Encounter Details Date Type Department Care Team (Late st Contact Info) Description 02/10/2022 Lab Requisition [facility] [address] [place] [address] Eleazar Hess PA-C [address] [facility] [place] [id number] Social History Tobacco Use Types Packs/Day Years [...] Report SEE NOTE 02/22/2022 1:25 PM EDT [employer] Comment: Finegoldia magna Organism identified by client [...] caution. REKHA M Beta-Lactamase Neg Performed by [employer], [address] [place] [address] www.[employer], Piero Beaver MD, PHD, Lab. Director Micro Specimen SPECIMEN FROM ABSCESS / Unknown 02/05/2022 8:00 PM EDT 02/10/2022 3:57 PM EDT Eleazar Hess PA-C LABORATORY Final Result [employer] [address] [place] [address] * (ABNORMAL) ORGANISM TARYN (02/05/2022 8:00 PM EDT) Culture, Organism TARYN Result Finegoldia magna(A) MINIMUM INHIBITORY CONCENTRATION ([place]) 02/24/2022 2:08 PM EDT [facility] Micro Specimen SPECIMEN FROM ABSCESS / Unknown 02/05/2022 8:00 PM EDT 02/10/2022 3:57 PM EDT Narrative [facility] - 02/24/2022 2:08 PM EDT Susceptibility results have been completed by [facility]. us Eleazar Hess PA-C LABORATORY Final Result Performing Organization Address City/[facility]/ZIP Co de Phone Number [facility] [address] [address], [place] * (ABNORMAL) ORGANISM ID ANAEROBE (02/05/2022 8:00 PM EDT) Culture, Organism ID Anaerobe Finegoldia magna(A) 02/16/2022 3:33 PM EDT [facility] Micro Specimen SPECIMEN FROM ABSCESS / Unknown 02/05/2022 8:00 PM EDT 02/10/2022 3:57 PM EDT us Eleazar Hess PA-C LABORATORY Final Result Performing Organization Address [facility]/ZIP Co de Phone Number [facility] [address] [address], [place] documented in this encounter Visit Diagnoses Not on filedocumented in this encounter
--- OUTSIDE RECORDS SUMMARY | 2024-11-30 20:18 | XMS_ITS | Encounter Summary ---
Author Organization [facility] tem Address [facility] – [place]-[id number] [address] 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
--- OUTSIDE RECORDS SUMMARY | 2024-11-30 20:18 | XMS_ITS | Encounter Summary ---
Author Organization [facility] Address [address] [facility] [place] [address] Care Team Providers Care Retail Customer Service Representative Name Role Phone YoselinJaime FERMIN Unavailable Unallocated, Noms Provider Primary Care Provi kwabena Encounter Details Date Type Department Care Team (Late Contact Info) Description 11/30/2024 Bamboo flowsheet [facility] [address] [place] [address] Cuong Ortiz DO [facility] [place] [address] Social History Tobacco Use Types Packs/Day Years [...] OB [address] [place] [address] Cuong Ortiz DO [address] [place] [address] documented as of this encounter Goals Goal Patient Goal Type Associated Problems Recent Progress Patient-Stated? Author Reminders Care Plan OB Reminders No Open Scheduling, Background documented as of this encounter Visit Diagnoses Not on filedocumented in this encounter Additional Health Concerns Active Problems Noted Date Diagnosed Date OB Reminders 06/23/2024 documented as of this encounter Care Teams Retail Customer Service Representative Relationship Specialty Start Date End Date Unallocated, Noms Provider, [address] [place] [address] PCP - General 03/04/23 Jaime Wyatt PA [address] [place] [address] Referring Physician Physical Medicine and Rehabilitation 03/04/23 documented as of this encounter
--- OUTSIDE RECORDS SUMMARY | 2024-11-30 20:18 | XMS_ITS | Encounter Summary ---
Author Organization [facility] Address [address] [facility] [place] [address] Care Team Providers Care Supervisor Drying And Softening Name Role Phone WyattJaime FERMIN Unavailable Unallocated, Noms Provider Primary Care Provi kwabena Encounter Details Date Type Department Care Team (Late st Contact Info) Description 09/29/2024 Orders Only [facility] OB [address] [place] [address] Destinee Vazquez LPN [address] [facility] [address] [place] [address] Social History Tobacco Use Types Packs/Day Years [...] PM EDT Routine [facility] OB [address] [place] [address] Cuong Ortiz, DO [address] [place] [address] documented as of this encounter Goals Goal [...] as of this encounter Care Teams Supervisor Drying And Softening Relationship Specialty Start Date End Date Unallocated, Noms Provider, [address] [place] [address] PCP - General 03/04/23 Jaime Wyatt PA [address] [place], [place] [phone] Referring Physician Physical Medicine and Rehabilitation 03/04/23 documented as of this encounter
--- OUTSIDE RECORDS SUMMARY | 2024-11-30 20:18 | XMS_ITS | Encounter Summary ---
Author Organization [facility] Address [address] [facility] [place] [address] Care Team Providers Care Fitter / Welder Name Role Phone Yoselin Jaime FERMIN Unavailable Unallocated, Noms Provider Primary Care Provi kwabena Encounter Details Date Type Department Care Team (Late st Contact Info) Description 11/24/2024 Clinisync Result Encounter [facility] External Department Unsolicited Dave Ortiz, DO [address] [place] [address] Social History Tobacco Use Types Packs/Day Years [...] Description 12/07/2024 1:00 PM EDT Routine [facility] [address] [place] [id number] Dave Ortiz, DO [address] [place] [address] [phone] (work) documented as of this encounter Goals [...] AM EDT Narrative 11/24/2024 9:45 [place] [address] Ultrasound Report Signed Patient: ZULEIKA WADDELL MR#: [id number] : 1990 Acct:[id number] Age/Sex: 34 / F ADM Date: 11/24/24 Loc: [facility] 250-[address]: Dave Ortiz D.O. Ordering Physician: Dave Ortiz D.O. Date of Service: 11/24/24 Procedure(s): US OB BPP w non-stress Accession Number(s): [id number] cc: Dave Ortiz D.O.; Ramon Avila M.D. [address] [address] Patient Name: ZULEIKA WADDELL MRN: [id number]:[id number] date: 1990 Sex: F Assigned Patient Location: [facility] Current Patient Location: [facility] Accession/Order Number: [id number] Exam Date: 11/24/2024 09:41 Report Date: 11/24/2024 [...] Mahan M.D. 11/24/2024 9:42 AM Dictation Location: [place] [address] Electronically authenticated by: [id number] Y Date: 11/24/2024 09:42 Dictated By: Adela Mahan M.D. Signed By: 11/24/24944 DD/ 1 TD/TT: Derrick Worker Well Service: Procedure Note Radiology, Radiologist, MD - 11/24/2024 [place] [address] Ultrasound Report Signed Patient: ZULEIKA WADDELL LMR#: [id number] : 1990Acct:[id number] Age/Sex: 34 / FADM Date: 11/24/24 Loc: [facility] 250-[address]: Dave Ortiz D.O. Ordering Physician: Dave Ortiz D.O. Date of Service: 11/24/24 Procedure(s): US OB BPP w non-stress Accession Number(s): [id number] cc: Dave Ortiz D.O.; Ramon Avila M.D. [facility] [place] [id number] Patient Name: ZULEIKA WADDELL MRN: [id number] date: 1990 Sex: F Assigned Patient Location: [facility] Current Patient Location: [facility] Accession/Order Number: [id number] Exam Date: 11/24/2024 09:41 Report Date: 11/24/2024 [...] Mahan M.D. 11/24/2024 9:42 AM Dictation Location: [place] [address] Electronically authenticated by: [id number] Y Date: 509:42 Dictated By: Adela Mahan M.D. Signed By:11/24/2445 DD/ TD/TT: Derrick Worker Well Service: Dave Ortiz DO [facility] Final Result documented in this encounter Visit Diagnoses Not on filedocumented in this encounter Additional Health Concerns Active Problems Noted Date Diagnosed Date OB Reminders 06/23/2024 documented as of this encounter Care Teams Fitter / Welder Relationship Specialty Start Date End Date Unallocated, Noms Provider, [address] [place] [address] PCP - General 03/04/23 Jaime Waddell PA [address] [place] [address] Referring Physician Physical Medicine and Rehabilitation 03/04/23 documented as of this encounter
--- OUTSIDE RECORDS SUMMARY | 2024-11-30 20:18 | XMS_ITS | Encounter Summary ---
Author Organization [facility] Address [address] [facility] [place] [address] Care Team Providers Care Cnc Field Service Engineer Name Role Phone Ysoelin Jaime FERMIN Unavailable Unallocated, Noms Provider Primary Care Provi kwabena Encounter Details Date Type Department Care Team (Late st Contact Info) Description 09/29/2024 Abstract [facility] OB [address] [place] [address] Cuong Ortiz DO [facility] [address], [place] [address] Social History Tobacco Use Types Packs/Day Years [...] Cuong Ortiz DO [address] [place] [address] documented as of this encounter Goals Goal Patient Goal Type Associated Problems Recent Progress Patient-Stated? Author Reminders Care Plan OB Reminders No Open Scheduling, Background documented as of this encounter Visit Diagnoses Not on filedocumented in this encounter Additional Health Concerns Active Problems Noted Date Diagnosed Date OB Reminders 06/23/2024 documented as of this encounter Care Teams Cnc Field Service Engineer Relationship Specialty Start Date End Date Unallocated, Noms Provider, [address] [place] [address] PCP - General 03/04/23 Jaime Wyatt PA [address] [place] [address] Referring Physician Physical Medicine and Rehabilitation 03/04/23 documented as of this encounter
--- OUTSIDE RECORDS SUMMARY | 2024-11-30 20:18 | XMS_ITS | Encounter Summary ---
Author Organization [facility] Address [facility] [place]-[id number] [address] [place] [address] Care Team Providers Care Metal Fitters And Machinists Name Role Phone Jaime Wyatt PA-C Primary Care Provider [phone] Encounter Details Date Type Department Care Team [...] documented as of this encounter Care Teams Metal Fitters And Machinists Relationship Specialty Start Date End Date Jaime Wyatt PA-C [address] [place] [address] PCP - General Physician Bobcat Driver/Labor 03/18/18 documented as of this encounter
--- OUTSIDE RECORDS SUMMARY | 2024-11-30 20:18 | XMS_ITS | Patient Health Record ---
Author Organization The [facility] in [place] Address [address] [place] [address] Care Team Providers Care Physical Therapy Assistant Instructor Name Role Phone Laron Pulliam Primary Care Provider Allergies Allergen (clinical drug ingredient) Drug/Non Drug [...] 01:07:05 PM Interpretation: Performing Lab: Notes/Report: [facility] , White Blood Count 12.5 4.0-11.0 [...] Performing Lab: see note ML - [facility] LB PROF 14(COMP METB) Reviewed date:09/23/2024 01:07:05 PM Interpretation: Performing Lab: Notes/Report: [facility] , Sodium 138 136-145 mmol/L Potassium [...] Globulin Ratio 0.7 Performing Lab: see note [facility] LB Manual Differential Reviewed date:09/23/2024 01:07:05 PM Interpretation: Performing Lab: Notes/Report: [facility] , Segmented Neutrophils % Manual [...] 3/uL Anisocytosis 1+ Performing Lab: see note [facility] LB ECG 12 lead Reviewed date:09/23/2024 06:29:51 PM Interpretation: Performing Lab: Notes/Report: Source Facility: [place] [address] [place] [address] Electrocardiograph Report Signed Patient: ZULEIKA WADDELL MR#: [id number] : 1990 Acct:[id number] Age/Sex: 34 / F ADM Date: 09/23/24 Loc: ER Attending Dr: Ordering Physician: Renata Fox D.O. Date of Service: 09/23/24 Procedure(s): ECG 12 lead Accession Number(s): [id number] cc: [facility] Test Date: 2024-09-23 Pat Name: ZULEIKA WADDELL Department: Room: - Gender: Female Hospital Education Coordinator: : 1990 Requested By: GERA PULLIAM Order Number: [id number] Reading MD: JOANA ANGULO Measurements Intervals [place] Rate: 95 P: 60 SC: 118 QRS: 73 QRSD: 78 T: 42 QT: 332 QTc: 385 Interpretive Statements 1100 Sinus rhythm 2210 Short SC interval 9150 abnormal ECG Compared to ECG 05/16/2021 19:44:03 Short SC interval now present Electronically Signed On 09-23-2024 14:08:31 EDT by JOANA ANGULO Dictated By: Joana Angulo M.D. Signed By: 09/23/24 1408 DD/ 1058 TD/TT: Frame Stylist: [place] [address] Electrocardiograph Report Signed Patient: KJ WADDELL MR#: [id number] : 1990 Acct:[id number] Age/Sex: 34 / F ADM Date: 09/23/24 Loc: ER Attending Dr: Ordering Physician: Renata Fox D.O. Date of Service: 09/23/24 Procedure(s): ECG 12 lead Accession Number(s): [id number] cc: [facility] Test Date: 2024-09-23 Pat Name: ZULEIKA ARTEAGA Department: 43 Room: - Gender: Female Hospital Education Coordinator: : 1990 Requ ested By: GERA LEWISY Order Number: [id number] Reading MD: JOANA ANGULO Measurements Intervals [place] Rate: 95 P: 60 SC: 118 QRS: 73 QRSD: 78 T: 42 QT: 332 QTc: 385 Interpretive Statements 1100 Sinus rhythm 2210 Short SC interval 9150 abnormal ECG Compared to ECG 04/19 19:44:03 Short SC interval no w present Electronically Yeni d On 09-23-2024 14:08:31 EDT by JOANA ANGULO Dictated By: Joana Oro M.D. Signed By: 09/23/24 1408 DD/ 1058 TD/TT: Frame Stylist: CBC AUTO DIFF Reviewed date:10/26/2024 02:03:18 PM Interpretation: Performing Lab: Notes/Report: [facility] , White Blood Count 10.2 4.0-11.0 [...] 10 3/uL Performing Lab: see note - [facility] PROF 14(COMP METB) Reviewed date:10/26/2024 02:03:18 PM Interpretation: Performing Lab: Notes/Report: [facility] , Sodium 134 136-145 mmol/L Potassium [...] Ratio 0.6 Performing Lab: see note - [facility] US OB BPP w non-stress Reviewed date:11/03/2024 08:40:24 PM Interpretation: Performing Lab: Notes/Report: Source Facility: [place] [address] [place] [address] Ultrasound Report Signed Patient: ZULEIKA WADDELL MR#: [id number] : 1990 Acct:[id number] Age/Sex: 34 / F ADM Date: 11/03/24 Loc: US Attending Dr: Dave Ortiz D.O. Ordering Physician: Dave Ortiz D.O. Date of Service: 11/03/24 Procedure(s): US OB BPP w non-stress Accession Number(s): [id number] cc: Dave Ortiz D.O.; Gera Pulliam M.D. [address] [address] Patient Name: ZULEIKA WADDELL MRN: [id number] date: 1990 Sex: F Assigned Patient Location: US Current Patient Location: Accession/Order Number: [id number] Exam Date: 11/03/2024 15:29 Report Date: 11/03/2024 15:31 At the request of: DAVE ORTIZ DO Procedure: US OB BPP w non-stress Ultrasound obstetrical biophysical profile HISTORY: [place] cisterna magna. In adequate breathing movement. Adequate gross body movement, tone and amniotic fluid volume. Total score 6 out of 8. Amniotic fluid index 11.1 cm within normal limits. heart rate 148 bpm. US/US OB BPP w non-stress IMPRESSION: Suboptimal biophysical profile. Score 6 out of 8. Impression dictated by: Aaron Boyce M.D. 11/03/2024 3:31 PM Dictation Location: [place] [address] Electronically authenticated by: [id number] Y Date: 11/03/2024 15:31 Dictated By: Aaron Boyce D.O. Signed By: 11/03/24 1533 DD/ 1531 TD/TT: Frame Stylist: [place] [address] Ultrasound Report Signed Patient: KJ WADDELL MR#: [id number] : 1990 Acct:[id number] Age/Sex: 34 / F ADM Date: 11/03/24 Loc: US Attending Dr: Dave Ortiz D.O. Ordering Physician: Dave Ortiz D.O. Date of Service: 11/03/24 Procedure(s): US OB BPP w non-stress Accession Number(s): [id number] cc: Dave Ortiz D.O. ; Gera Pulliam M.D. [address] [address] Patient Name: ZULEIKA WADDELL MRN: [id number] date: 1990 Sex: F Assigned Patient Loc ation: US Current Patient Location: Accession/Order Numb er: [id number] Exam Date: 11/03/2024 15:29 Report Date: 11/03/2024 15:31 At the request of: DAVE ORTIZ DO Procedure: US OB fet al BPP w non-stress Ultrasound obstetric al biophysical profile HISTORY: [place] ciste rna magna. In adequate br eathing [...] Boyce M.D. 11/03/2024 3:31 PM Dictation Location: [place] [address] Electronically authenticated by: [id number] Y Date: 11/03/2024 15:31 Dictated By: Basilio Boyce D.O. Signed By: 11/03/24 1533 DD/ 1531 TD/TT: Frame Stylist: OB dena Reviewed date:11/03/2024 08:40:24 PM Interpretation: Performing Lab: Notes/Report: Source Facility: [place] [address] Ultrasound Report Signed Patient: ZULEIKA WADDELL MR#: [id number] : 1990 Acct:[id number] Age/Sex: 34 / F ADM Date: 11/03/24 Loc: US Attending Dr: Dave Ortiz D.O. Ordering Physician: Dave Ortiz D.O. Date of Service: 11/03/24 Procedure(s): US OB growth Accession Number(s): [id number] cc: Dave Ortiz D.O.; Gera Pulliam M.D. [place] [address] Patient Name: ZULEIKA WADDELL MRN: [id number] date: 1990 Sex: F Assigned Patient Location: US Current Patient Location: Accession/Order Number: [id number] Exam Date: 11/03/2024 16:30 Report Date: 11/03/2024 [...] Boyce M.D. 11/03/2024 4:34 PM Dictation Location: [place] [address] Electronically authenticated by: [id number] Y Date: 11/03/2024 16:34 Dictated By: Aaron Boyce D.O. Signed By: 11/03/24 1636 DD/ 1634 TD/TT: Frame Stylist: [place] [address] Ultrasound Report Signed Patient: KJ WADDELL MR#: [id number] : 1990 Acct:[id number] Age/Sex: 34 / F ADM Date: 11/03/24 Loc: US Attending Dr: Dave Ortiz D.O. Ordering Physician: Dave Ortiz D.O. Date of Service: 11/03/24 Procedure(s): US OB growth Accession Number(s): [id number] cc: Dave Ortiz D.O. ; Gera Pulliam M.D. [address] [address] Patient Name: ZULEIKA WADDELL MRN: [id number] date: 1990 Sex: F Assigned Patient Loc ation: US Current Patient Location: Accession/Order Numb er: [id number] Exam Date: 11/03/2024 16:30 Report Date: 11/03/2024 [...] Boyce M.D. 11/03/2024 4:34 PM Dictation Location: [employer] Electronically authenticated by: [id number] Y Date: 11/03/2024 16:34 Dictated By: Basilio Boyce D.O. Signed By: 11/03/24 1636 DD/ 163 TD/TT: Frame Stylist: US OB BPP w non-stress Reviewed date:11/07/2024 11:57:39 AM Interpretation: Performing Lab: Notes/Report: Source Facility: [place] [address] [place] [address] Ultrasound Report Signed Patient: ZULEIKA WADDELL MR#: [id number] : 1990 Acct:[id number] Age/Sex: 34 / F ADM Date: 11/06/24 Loc: FBCO Attending Dr: Dave Ortiz D.O. Ordering Physician: Dave Ortiz D.O. Date of Service: 11/06/24 Procedure(s): US OB BPP w non-stress Accession Number(s): [id number] cc: Dave Ortiz D.O.; Gera Pulliam M.D. [place] [id number] Patient Name: ZULEIKA WADDELL MRN: [id number] date: 1990 Sex: F Assigned Patient Location: [facility] Current Patient Location: Accession/Order Number: [id number] Exam Date: 11/06/2024 13:51 Report Date: 11/06/2024 [...] Giang M.D. 11/06/2024 2:00 PM Dictation Location: [place] [address] Electronically authenticated by: [id number] Y Date: 11/06/2024 14:00 Dictated By: Jimy Giang M.D. Signed By: 11/06/24 1403 DD/ 1400 TD/TT: Frame Stylist: [place] [address] Ultrasound Report Signed Patient: KJ WADDELL MR#: [id number] : 1990 Acct:[id number] Age/Sex: 34 / F ADM Date: 11/06/24 Loc: FBCO Attending Dr: Dave Ortiz D.O. Ordering Physician: Dave Ortiz D.O. Date of Service: 11/06/24 Procedure(s): US OB BPP w non-stress Accession Number(s): [id number] cc: Dave Ortiz D.O. ; Gera Pulliam M.D. [place] [address] Patient Name: ZULEIKA WADDELL MRN: [id number] date: 1990 Sex: F Assigned Patient Loc ation: FBCO Current Patient Location: Accession/Order Numb er: [id number] Exam Date: 11/06/2024 13:51 Report Date: 11/06/2024 [...] Giang M.D. 11/06/2024 2:00 PM Dictation Location: [place] [address] Electronically authenticated by: [id number] Y Date: 11/06/2024 14:00 Dictated By: Jimy Giang M.D. Signed By: 11/06/24 1403 DD/ 1400 TD/TT: Frame Stylist: US OB BPP w non-stress Reviewed date:11/10/2024 04:02:27 PM Interpretation: Performing Lab: Notes/Report: Source Facility: [facility] [place] [address] [place] [address] Ultrasound Report Signed Patient: ZULEIKA WADDELL MR#: [id number] : 1990 Acct:[id number] Age/Sex: 34 / F ADM Date: 11/10/24 Loc: US Attending Dr: Dave Ortiz D.O. Ordering Physician: Dave Ortiz D.O. Date of Service: 11/10/24 Procedure(s): US OB BPP w non-stress Accession Number(s): [id number] cc: Dave Ortiz D.O.; Gera Pulliam M.D. [place] [address] Patient Name: ZULEIKA WADDELL MRN: [id number] date: 1990 Sex: F [facility] Current Patient Location: Accession/Order Number: [id number] Exam Date: 11/10/2024 10:07 Report Date: 11/10/2024 [...] Mahan M.D. 11/10/2024 10:08 AM Dictation Location: [place] [address] Electronically authenticated by: [id number] Y Date: 11/10/2024 10:08 Dictated By: Adela Mahan M.D. Signed By: 11/10/24 1011 DD/ 1008 TD/TT: Frame Stylist: [place] [address] Ultrasound Report Signed Patient: KJ WADDELL MR#: [id number] : 1990 Acct:[id number] Age/Sex: 34 / F ADM Date: 11/10/24 Loc: US Attending Dr: Dave Ortiz D.O. Ordering Physician: Dave Ortiz D.O. Date of Service: 11/10/24 Procedure(s): US OB BPP w non-stress Accession Number(s): [id number] cc: Dave Ortiz D.O. ; Gera Pulliam M.D. [place] [address] Patient Name: ZULEIKA WADDELL MRN: [id number] date: 1990 Sex: F Assigned [facility] Current Patient Location: Accession/Order Numb er: [id number] Exam Date: 11/10/2024 10:07 Report Date: 11/10/2024 10:08 At the request of: DAVE ORTIZ DO Procedure: US OB fet al BPP w non-stress BIOPHYSICAL PROFILE: CLINICAL INFORMATION : [place] cisterna magna Q04.9 Comparison: 11/06/2024 There is a single li ve intrauterine gestation in cephalic presentation. The reported gestational age is 33 weeks 0 days. The heart rate fjtamaus404 beats per minute. FINDINGS: TONE: 1 or [...] Mahan M.D. 11/10/2024 10:08 AM Dictation Location: [place] [address] Electronically authenticated by: [id number] Y Date: 11/10/2024 10:08 Dictated By: Adela Mahan M.D. Signed By: 11/10/24 1011 DD/ 1008 TD/TT: Frame Stylist: US OB BPP w non-stress Reviewed date:11/17/2024 04:34:46 PM Interpretation: Performing Lab: Notes/Report: Source Facility: [place] [address] [place] [address] Ultrasound Report Signed Patient: ZULEIKA WADDELL MR#: [id number] : 1990 Acct:[id number] Age/Sex: 34 / F ADM Date: 11/17/24 Loc: US Attending Dr: Dave Ortiz D.O. Ordering Physician: Dave Ortiz D.O. Date of Service: 11/17/24 Procedure(s): US OB BPP w non-stress Accession Number(s): [id number] cc: Dave Ortiz D.O.; Gera Pulliam M.D. [place] [address] Patient Name: ZULEIKA WADDELL MRN: [id number] date: 1990 Sex: F [facility]igned [facility] Current Patient Location: Accession/Order Number: [id number] Exam Date: 11/17/2024 10:16 Report Date: 11/17/2024 [...] Mahan M.D. 11/17/2024 10:17 AM Dictation Location: [place] [address] Electronically authenticated by: [id number] Y Date: 11/17/2024 10:17 Dictated By: Adela Mahan M.D. Signed By: 11/17/24 1019 DD/ 1017 TD/TT: Frame Stylist: [place] [address] Ultrasound Report Signed Patient: KJ WADDELL MR#: [id number] : 1990 Acct:[id number] Age/Sex: 34 / F ADM Date: 11/17/24 Loc: US Attending Dr: Dave Ortiz D.O. Ordering Physician: Dave Ortiz D.O. Date of Service: 11/17/24 Procedure(s): US OB BPP w non-stress Accession Number(s): [id number] cc: Dave Ortiz D.O. ; Gera Pulliam M.D. [place] [id number] Patient Name: ZULEIKA WADDELL MRN: [id number] date: 1990 Sex: F Assigned [facility] Current Patient Location: Accession/Order Numb er: [id number] Exam Date: 11/17/2024 10:16 Report Date: 11/17/2024 [...] i s in normal range. Total score: 8/ U S/US OB BPP w non-stress IMPRESSION: NORMAL BIOPHYSICAL PROFILE Impression dictated by: Adela Mahan M.D. 11/17/2024 10:17 AM Dictation Location: [place] [address] Electronically authenticated by: [id number] Y Date: 11/17/2024 10:17 Dictated By: Adela Mahan M.D. Signed By: 11/17/24 1019 DD/ 1017 TD/TT: Frame Stylist: OB BPP w non-stress Reviewed date:11/24/2024 04:35:00 PM Interpretation: Performing Lab: Notes/Report: Source Facility: [place] [address] Ultrasound Report Signed Patient: ZULEIKA WADDELL MR#: [id number] : 1990 Acct:[id number] Age/Sex: 34 / F ADM Date: 11/24/24 [facility]: Dave Ortiz D.O. Ordering Physician: Dave Ortiz D.O. Date of Service: 11/24/24 Procedure(s): US OB BPP w non-stress Accession Number(s): [id number] cc: Dave Ortiz D.O.; Gera Pulliam M.D. [place] [address] Patient Name: ZULEIKA WADDELL MRN: [id number] date: 1990 Sex: F Assigned [facility] Accession/Order Number: [id number] Exam Date: 11/24/2024 09:41 Report Date: 11/24/2024 [...] Mahan M.D. 11/24/2024 9:42 AM Dictation Location: [place] [address] Electronically authenticated by: [id number] Y Date: 11/24/2024 09:42 Dictated By: Adela Mahan M.D. Signed By: 11/24/2445 DD/ 1 TD/TT: Frame Stylist: [place] [address] Ultrasound Report Signed Patient: KJ WADDELL MR#: [id number] : 1990 Acct:[id number] Age/Sex: 34 / F ADM Date: 11/24/24 [facility]: Dave Ortiz D.O. Ordering Physician: Dave Ortiz D.O. Date of Service: 11/24/24 Procedure(s): US OB BPP w non-stress Accession Number(s): [id number] cc: Dave Ortiz D.O. ; Gera Pulliam M.D. The [place] [id number] Patient Name: ZULEIKA WADDELL MRN: [id number] date: 1990 Sex: F Assigned [facility] Accession/Order Numb er: [id number] Exam Date: 11/24/2024 09:41 Report Date: 11/24/2024 09:42 At the request of: DAVE ORTIZ DO Procedure: US OB fet al BPP w non-stress BIOPHYSICAL PROFILE: CLINICAL INFORMATION : [place] cisterna magna Q04.9 COMPARISON: 11/17/2024 There is a single li ve intrauterine [...] cm [Y] 2/2 ANURAG: 14.6 cm. This i s normal. Total score: 8/8 U S/US OB BPP w non-stress IMPRESSION: NORMAL BIOPHYSICAL PROFILE. Impression dictated by: Adela Mahan M.D. 11/24/2024 9:42 AM Dictation Location: [place] [address] Electronically authenticated by: [id number] Y Date: 11/24/2024 09:42 Dictated By: Adela Mahan M.D. Signed By: 11/24/2445 DD/ 1 TD/TT: Frame Stylist: Reason For Referral No Information Medications Medication [...] 08/27/2024 Encounters Encounter Location Date Provider Diagnosis [facility] [address] [place] [address] 08/27/2024 Laron [facility] [address] [place] [address] 08/28/2024 Laorn [facility] [address] [place] [address] 09/23/2024 [facility] [address] [place] [address] 08/27/2024 Laron Pulliam Diarrhea R19.7 Assessments Encounter [...] End Date [employer] [place] [address] [address] [place] [id number] [facility] [address] [place], [place] Self - patient is the insured Medical (General) History Medical History History ICD Code Asthma Depression Hypertension Surgical History Surgery Date(Month/Year) Breast reduction 2016 Open heart surgery Club Foot- Left
--- OUTSIDE RECORDS SUMMARY | 2024-11-30 20:18 | XMS_ITS | Encounter Summary ---
Author Organization [facility] tem Address [facility] [address] [place] [address] Care Team Providers Care Car Washer Name Role Phone Jaime Wyatt PA-C Primary Care Provider [phone] Encounter Details Date Type Department Care Team (Late st Contact Info) Description 03/26/2022 Telephone Maternal- Medicine at [facility] [address] [place] [phone] Tamika Branch LPN Social History Tobacco Use [...] on filedocumented in this encounter Care Teams Car Washer Relationship Specialty Start Date End Date Jaime Wyatt, SADAF [address] [place], [place] [address] PCP - General Physician Neurodiagnostic Technologist 03/18/18 documented as of this encounter
--- OUTSIDE RECORDS SUMMARY | 2024-11-30 20:18 | XMS_ITS ---
Author Organization [facility] Address [address] [place] [address] Care Team Providers Care Freight Solicitor Name Role Phone Jaime Wyatt Unavailable Unallocated, Noms Provider Primary Care Provi [facility] Status:Enrolled (Active) Start date:08/11/2024 Enrollment date:08/12/2024 Enrollment reason:Identified by Health Plan Case Team Name Relationship Phone Elena Felix LPN(Responsible Staff) Licensed Prac tical Nurse [phone] Continued Care and Services Coordination
--- OUTSIDE RECORDS SUMMARY | 2024-11-30 20:18 | XMS_ITS | Encounter Summary ---
Author Organization [facility] Address [address] [facility] [[email or web address] [place] [address] Care Team Providers Care Inspector Health Care Facilities Name Role Phone Yoselin Jaime FERMIN Unavailable Unallocated, Noms Provider Primary Care Provi kwabena Encounter Details Date Type Department Care Team (Late st Contact Info) Description 11/17/2024 Abstract [facility] [address] [place] [address] Cuong Ortiz DO [facility] [address], [place] [address] Social History Tobacco Use Types Packs/Day Years [...] [place] [address] Cuong Ortiz DO [address] [place] [address] [place] [address] documented as of this encounter Goals Goal Patient Goal Type Associated Problems Recent Progress Patient-Stated? Author Reminders Care Plan OB Reminders No Open Scheduling, Background documented as of this encounter Visit Diagnoses Not on filedocumented in this encounter Additional Health Concerns Active Problems Noted Date Diagnosed Date OB Reminders 06/23/2024 documented as of this encounter Care Teams Inspector Health Care Facilities Relationship Specialty Start Date End Date Unallocated, Noms Provider, [address] [place] [address] PCP - General 03/04/23 Jaime Wyatt PA [address] [place] [address] Referring Physician Physical Medicine and Rehabilitation 03/04/23 documented as of this encounter
--- OUTSIDE RECORDS SUMMARY | 2024-11-30 20:18 | XMS_ITS | Clinical Summary ---
Author Organization [facility] Address [address] [place] [address] Care Team Providers Care Educational Technology Specialist Name Role Phone Unavailable Primary Care [...] Billing Address Personal/Family Self 1990 na (Home) [address] [place] [address] EMILYEM [employer] [place]
--- OUTSIDE RECORDS SUMMARY | 2024-11-30 20:18 | XMS_ITS | Clinical Summary ---
Author Organization [facility] tem Address [id number] [address] 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); Christiano cisterna magna (CMS-HCC) - 11/16/2024 12:43 PM EDT - 11/16/2024 11:59 PM EDT Hospital Encounter [facility] - [facility] US Imaging [address] [place] [phone] Supervision of high risk , antepartum Discharge Disposition: Home 11/16/2024 Travel 09/28/2024 2:00 PM EDT Office Visit Maternal- Medicine at [facility] [address] [place] [phone] Trav Macdonald MD Christiano cisterna magna (CMS-HCC) - (Primary Dx); Nodular heterotopia (CMS-HCC) - ; 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 , 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 09/28/2024 12:43 PM EDT - 09/28/2024 11:59 PM EDT Hospital Encounter [facility] - [facility] US Imaging [address] [place] [phone] 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 , 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; Family history of genetic disorder; Fetus with trisomy 13, single gestation; CM (congenital malformation); Suspected anomaly, antepartum, single or unspecified fetus Discharge Disposition: Home 09/28/2024 Travel from Last 3 Months Immunizations Immunization Administration [...] 2010 Depression Screening 05/02/2023 05/02/2022 COVID-19 Vaccine (2023-2 5 season) 2024 03/14/2021, 02/06/2021 Influenza Vaccine 02/15/2025 05/19/2013, 04/29/2012 Adult BMI Screening 11/16/2025 11/16/2024 Tobacco Screening 11/16/2025 11/16/2024 Pap Smear 09/11/2027 09/10/2024, 10/24/2022 DTaP,Tdap and Td Vaccines (1 0 - Td or Tdap) 12/18/2032 12/18/2022, 07/07/2022, 11/07/2017, Additional history exists Medical Devices Not on file Procedures Procedure Name Priority Date/Time Associated Diagnosis Comments US MFM OB FOLLOW-UP, 1 FETUS Routine 11/16/2024 3:01 PM EDT Supervision of high risk , antepartum US MFM OB FOLLOW-UP, 1 FETUS Routine 09/28/2024 2:38 PM EDT 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 Anatomical Region Laterality Modality OB-ASSEMBLER FOR PULLER OVER MACHINE Ultrasound 11/16/2024 1:48 PM EDT Narrative 11/16/2024 3:25 PM EDT NAME: YOSELIN TO : 1990 SEX: F Accession Number: [id number] ORDERING PHYSICIAN: TRAV MACDONALD REFERRING PHYSICIAN: DAVE CUELLAR Coding ----- --------- Procedures 93126: Follow-up Ultrasound, per fetus 59682: Echocardiography, , cardiovascular system, real time with [...] ----- --------- OB History 7. Para 4 [id number] Current ----- --------- Cell free DNA Low [...] EFW (oz) 14 oz EFW by: Hadlock (XYJ-SS-BZ-FL) Extended Tibia 58.9 mm 34w 3d 81% Gurdeep Production Estimator 6.0 mm CM 14.6 mm Head / [...] Cerebellum. Face: Lips. Nose. Heart/Thorax: 4-chamber view. 6-ccrqbd-hiddiay view. Great vessels. Diaphragm. Abdomen: Stomach. Kidneys. [...] view documented previously 3-vessel view documented previously 1-zdrarq-bqrobck view normal Aortic arch view documented previously [...] Recommendations ----- --------- Please see follow up [facility] documentation from today's encounter. Results forwarded to ordering provider so they can follow up with the patient as necessary. Subsequent follow up or other follow up as clinically determined by primary OB provider unless otherwise specified by MFM. Procedure Note Trav Macdonald MD - 11/16/2024 NAME: YOSELIN TO : 1990 SEX: F Accession Number: [id number] ORDERING PHYSICIAN: TRAV MACDONALD REFERRING PHYSICIAN: DAVE CUELLAR Coding ----- --------- Procedures 38278: Follow-up Ultrasound, per fetus 91312: Echocardiography, , cardiovascular system, real timewith image documentation (2D), with or without M-mode recording; follow-up or repeat study Indication ----- --------- Screening for follow-up survey, Chronic hypertension affecting ,History of prior with delivery, Supervision of high risk - MOB alcohol syndrome, T13 inprev , MOB club foot, christiano cisterna magna, 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 Para 4 [id number] Current ----- --------- Cell free DNA Low [...] EFW (oz) 14 oz EFW by: Hadlock (BMR-QB-NF-FL) Extended Tibia 58.9 mm 34w 3d 81% Gurdeep Production Estimator 6.0 mm CM 14.6 mm Head / [...] Cerebellum. Face: Lips. Nose. Heart/Thorax: 4-chamber view. 9-ownxfa-xfjljwa view. Great vessels. Diaphragm. Abdomen: Stomach. Kidneys. [...] view documented previously 3-vessel view documented previously 7-kjglkc-zdvpegd view normal Aortic arch view documented previously [...] specified by MFM. us Trav Macdonald MD [facility] ORDERABLES Final Resul t from Last 3 Months Insurance * Guarantor: Nadine Wyatt Account Type Relation to Patient Date of Phone Billing Address Personal/Family Self 1990 [address] [place] [address] [employer] Care Teams Occupational Therapist Assistants Relationship Specialty Start Date End Date Jaime Wyatt PA-C [address] [place], [place] [phone] PCP - General Physician Chimney Construction Supervisor 03/18/18
== END 2024-11-30 20:13 | disposition home or self-care (01) ==
LOC: LAB 20:12
PROVIDERS: PCP Family Medicine; Visit Provider Obstetrics & Gynecology
DX: Z34.93 Encounter for supervision of normal pregnancy, unspecified, third trimester (principal)
CPT/HCPCS: 87081

== ENCOUNTER 2024-12-01 08:58 | Outpatient (OUT) | payer MEDICAID, SELFPAY ==
--- OUTSIDE RECORDS SUMMARY | 2024-11-16 12:43 | XMS_ITS | Encounter Summary ---
Author Organization [facility] tem Address [id number] [address] [place] [address] Care Team Providers Care Trader Name Role Phone Jaime Wyatt PA-C Primary Care Provider + [phone] Reason for Visit * Diagnostic Imaging (Routine) - Pending Review Specialty Diagnoses / Procedures Referred By Sole t Referred To Contact Maternal and Medicine Diagnoses Supervision of high risk , antepartum Procedures US MFM with or without consult US MFM with or without consult Trav Macdonald MD [address], [address] [place] [address] Phone: tel: fax: Maternal- Medicine at [facility] [address] [place] [address] Phone: tel: fax: Referral ID Status Reason Start Date Expiration Date V isits Requested Visits Authorized [id number] Pending Review 11/16/2024 11/16/2025 1 1 Encounter Details Date Type Department Care Team (Latest Contact Info) Description 11/16/2024 12:43 PM EDT - 11/16/2024 11:59 PM EDT Hospital Encounter [facility] - MFM US Imaging [address] [place] [phone] Supervision of high risk , antepartum Discharge [...] Procedure Name Priority Date/Time Associated Diagnosis Comments [facility] OB FOLLOW-UP, 1 FETUS Routine 11/16/2024 3:01 PM EDT Supervision of high risk , antepartum documented in this encounter Results * [facility] OB FOLLOW-UP, 1 FETUS (11/16/2024 3:01 PM EDT) Anatomical Region Laterality Modality OB-AGGREGATE CONVEYOR OPERATOR Ultrasound 11/16/2024 1:48 PM EDT Narrative 11/16/2024 3:25 PM EDT NAME: BAIRON TO : 1990 SEX: F Accession Number: [id number] ORDERING PHYSICIAN: TRAV MACDONALD REFERRING PHYSICIAN: DAVE CUELLAR Coding ----- --------- Procedures 32184: Follow-up Ultrasound, per fetus 18578: Echocardiography, , cardiovascular system, real time with [...] ----- --------- OB History 7. Para 4 [id number] Current ----- --------- Cell free DNA Low [...] EFW (oz) 14 oz EFW by: Hadlock ([id number]-FL) Extended Tibia 58.9 mm 34w 3d 81% Gurdeep Solution Consultant 6.0 mm CM 14.6 mm Head / [...] Cerebellum. Face: Lips. Nose. Heart/Thorax: 4-chamber view. 6-dkowut-gysctsl view. Great vessels. Diaphragm. Abdomen: Stomach. Kidneys. [...] view documented previously 3-vessel view documented previously 7-bhknfj-lfodfra view normal Aortic arch view documented previously [...] TO : 1990 SEX: F Accession Number: [id number] ORDERING PHYSICIAN: TRAV MACDONALD REFERRING PHYSICIAN: DAVE CUELLAR Coding ----- --------- Procedures 34940: Follow-up Ultrasound, per fetus 77542: Echocardiography, , cardiovascular system, real timewith image documentation (2D), with or without M-mode recording; follow-up or repeat study Indication ----- --------- Screening for follow-up survey, Chronic hypertension affecting ,History of prior with delivery, Supervision of high risk - MOB alcohol syndrome, T13 inprev , MOB club foot, allan cisterna magna, 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 Para 4 [id number] Current ----- --------- Cell free DNA Low [...] EFW (oz) 14 oz EFW by: Hadlock ([id number]) Extended Tibia 58.9 mm 34w 3d 81% Gurdeep Solution Consultant 6.0 mm CM 14.6 mm Head / [...] Cerebellum. Face: Lips. Nose. Heart/Thorax: 4-chamber view. 9-uujfmb-vweysrv view. Great vessels. Diaphragm. Abdomen: Stomach. Kidneys. [...] view documented previously 3-vessel view documented previously 0-cuazpr-fqaixko view normal Aortic arch view documented previously [...] specified by MFM. us Trav Macdonald MD [facility] Final Resul t documented in this encounter Visit Diagnoses Diagnosis Supervision of high risk , antepartum documented in this encounter Additional Health Concerns Assessment Noted Time PHQ-9 Depression Total Score: 0 05/02/20 22 1:41 PM EST documented as of this encounter Care Teams Trader Relationship Specialty Start Date End Date Jaime Wyatt PA-C [address] [place], [place] [phone] PCP - General Physician Service Transformer Repair Supervisor 03/18/18 documented as of this encounter
--- OUTSIDE RECORDS SUMMARY | 2024-11-23 14:20 | XMS_ITS | Encounter Summary ---
Author Organization [facility] Address [address] [facility] [place] [address] Care Team Providers Care Supply Coordinator Name Role Phone Yoselin Jaime FREMIN Unavailable Unallocated, Noms Provider Primary Care Provi kwabena Reason for Visit * Reason Comments Routine Visit Encounter Details Date Type Department Care Team (Late st Contact Info) Description 11/23/2024 2:20 PM EDT Routine [facility] [address] [place] [address] Cuong Ortiz, DO [address] [facility] [address] [place], [facility]11 Third trimester ([facility]); 34 weeks gestation of ([facility]) Social History Tobacco Use Types Packs/Day [...] deficit disorder) ADHD (attention deficit hyperactivity disorder) ([facility]) Anxiety Bacterial vaginosis Bipolar disorder Club foot Depression ([facility]) Female infertility Heart problem Hormone imbalance HISTORY PAST MEDICAL HISTORY SOCIAL HISTORY Past Medical History: Diagnosis Date Abscess ADD (attention deficit disorder) ADHD (attention deficit hyperactivity disorder) ([facility]) Anxiety Bacterial vaginosis Bipolar disorder Club foot Depression ([facility]) Female infertility Heart problem Heart [...] nursing note reviewed. Exam conducted with a sex worker or escort present. Vitals: Estimated body mass index is [...] Care Team (Late st Contact Info) Description 12/07/2024 1:00 PM EDT Routine [facility] OB [address] [facility] [place] [phone] Cuong Ortiz, DO [address] [facility] [place] [address] documented as of this encounter Goals Goal Patient Goal Type Associated Problems Recent Progress Patient-Stated? Author Reminders Care Plan OB Reminders No Open Scheduling, Background documented as of this encounter Procedures Procedure Name Priority Date/Time Associated Diagnosis Comments POCT URINALYSIS DIPSTICK Routine 11/23/2024 2:58 PM EDT Third trimester ([facility]) documented in this encounter Results * (ABNORMAL) [...] this encounter Visit Diagnoses Diagnosis Third trimester ([facility]) state, incidental 34 weeks gestation of ([facility]) documented in this encounter Additional Health Concerns Active Problems Noted Date Diagnosed Date OB Reminders 06/23/2024 documented as of this encounter Care Teams Supply Coordinator Relationship Specialty Start Date End Date Unallocated, Noms Provider, [address] [place] [address] PCP - General 03/04/23 Jaime Wyatt PA [address] [place], [place] [phone] Referring Physician Physical Medicine and Rehabilitation 03/04/23 documented as of this encounter
--- OUTSIDE RECORDS SUMMARY | 2024-11-30 13:10 | XMS_ITS | Encounter Summary ---
Author Organization [facility] Address [address] [facility] [place] [address] Care Team Providers Care Primary Care Nurse Name Role Phone Yoselin Jaime FERMIN Unavailable Unallocated, Noms Provider Primary Care Provi kwabena Reason for Visit * Reason Comments Routine Visit Encounter Details Date Type Department Care Team (Late st Contact Info) Description 11/30/2024 1:10 PM EDT Routine [facility] BCP OB [address] [place] [phone] Cuong Ortiz, [facility] Uri [place], [place] [address] Third trimester ([facility]); 35 weeks gestation of ([facility]) Social History Tobacco Use Types Packs/Day Years [...] BCP OB [address] [place] [phone] Cuong Ortiz, DO [address] [facility] [place] [address] Scheduled Orders Name Type Priority Associated Diagnoses Orde r Schedule CULTURE, GROUP B STREP WITH SUSCEPTIBLITY Lab Routine Third trimester ([facility]) Expected: 11/30/2024, Expires: 11/30/2025 documented as of this encounter Goals Goal Patient Goal Type Associated Problems Recent Progress Patient-Stated? Author Reminders Care Plan OB Reminders No Open Scheduling, Background documented as of this encounter Procedures Procedure Name Priority Date/Time Associated Diagnosis Comments POCT URINALYSIS DIPSTICK Routine 11/30/2024 2:02 PM EDT Third trimester ([facility]) documented in this encounter Results * (ABNORMAL) [...] this encounter Visit Diagnoses Diagnosis Third trimester ([facility]) state, incidental 35 weeks gestation of ([facility]) documented in this encounter Additional Health Concerns Active Problems Noted Date Diagnosed Date OB Reminders 06/23/2024 documented as of this encounter Care Teams Primary Care Nurse Relationship Specialty Start Date End Date Unallocated, Noms Provider, [address] [place] [address] PCP - General 03/04/23 Jaime Wyatt PA [address] [place], [place] [phone] Referring Physician Physical Medicine and Rehabilitation 03/04/23 documented as of this encounter
--- OUTSIDE RECORDS SUMMARY | 2024-12-01 09:01 | XMS_ITS | Encounter Summary ---
Author Organization [facility] Address [address] [facility] [place] [address] Care Team Providers Care Market Editor Name Role Phone Yoselin Jaime FERMIN Unavailable Unallocated, Noms Provider Primary Care Provi kwabena Encounter Details Date Type Department Care Team (Late st Contact Info) Description 11/07/2023 Clinisync Result Encounter N[facility]S External Department Unsolicited Dave Ortiz, [facility] [place], [place] [address] Social History Tobacco Use Types Packs/Day Years [...] [facility] BCP OB [address] [place] [phone] Dave Ortiz DO [facility] [place] [address] documented as of this encounter Procedures Procedure Name Priority Date/Time Associated Diagnosis Comments US OB BPP W NON-STRESS 11/07/2023 7:10 AM EDT documented in this encounter Results * US OB BPP W NON-STRESS (11/07/2023 7:10 AM EDT) Anatomical Region Laterality Modality Other 11/07/2023 7:10 AM EDT Narrative 11/07/2023 7:13 [place] [address] Ultrasound Report Signed Patient: ZULEIKA WADDELL MR#: [id number] : 1990 Acct:[id number] Age/Sex: 33 / F ADM Date: 11/06/23 Loc: US Attending Dr: Dave Ortiz D.O. Ordering Physician: Dave Ortiz D.O. Date of Service: 11/06/23 Procedure(s): US OB BPP w non-stress Accession Number(s): [id number] cc: Dave Ortiz D.O.; Jaime Waddell [place] [address] Patient Name: ZULEIKA WADDELL MRN: [id number] date: 1990 Sex: F Assigned Patient Location: Current Patient Location: [facility] Accession/Order Number: [id number] Exam Date: 11/06/2023 14:19 Report Date: 11/07/2023 [...] M.D. Signed By: 11/07/23712 DD/ 9 TD/TT: Valve Steamer: Procedure Note Radiology, Radiologist, - 11/07/2023 [place] [address] Ultrasound Report Signed Patient: ZULEIKA WADDELL LMR#: [id number] : 1990Acct:[id number] Age/Sex: 33 / FADM Date: 11/06/23 Loc: US Attending Dr: Dave Ortiz D.O. Ordering Physician: Dave Ortiz D.O. Date of Service: 11/06/23 Procedure(s): US OB BPP w non-stress Accession Number(s): [id number] cc: Dave Ortiz D.O.; Jaime Waddell [place] [id number] Patient Name: ZULEIKA WADDELL MRN: [id number] date: 1990 Sex: F Assigned Patient Location: Current Patient Location: [facility] Accession/Order Number: [id number] Exam Date: 11/06/2023 14:19 Report Date: 11/07/2023 [...] Crump M.D. Signed By:11/07/23712 DD/ 9 TD/TT: Valve Steamer: us Dave Diana DO [facility] Final Result documented in this encounter Visit Diagnoses Not on filedocumented in this encounter Care Teams Market Editor Relationship Specialty Start Date End Date Unallocated, Noms Provider, [address] [place], [place] [phone] PCP - General 03/04/23 Jaime Waddell PA [address] [place] [address] Referring Physician Physical Medicine and Rehabilitation 03/04/23 documented as of this encounter
--- OUTSIDE RECORDS SUMMARY | 2024-12-01 09:01 | XMS_ITS | Encounter Summary ---
Author Organization [facility] Address [address] [facility] [place] [address] Care Team Providers Care House Moving Supervisor Name Role Phone Jaime Wyatt Unavailable Unallocated, Noms Provider Primary Care Provi kwabena Encounter Details Date Type Department Care Team (Late st Contact Info) Description 12/13/2023 Abstract [facility] [address] [facility] [place] [address] Destinee Vazquez LPN [address] [facility] [place] [address] Social History Tobacco Use Types Packs/Day Years [...] PM EDT Routine [facility] BCP [facility] [address] [facility] [place] [address] Cuong Ortiz DO [address] [place] [phone] documented as of this encounter Visit Diagnoses Not on filedocumented in this encounter Care Teams House Moving Supervisor Relationship Specialty Start Date End Date Unallocated, Noms Provider, [address] [place], [place] [phone] PCP - General 03/04/23 Jaime Wyatt PA [address] [place], [place] [phone] Referring Physician Physical Medicine and Rehabilitation 03/04/23 documented as of this encounter
--- OUTSIDE RECORDS SUMMARY | 2024-12-01 09:01 | XMS_ITS | Encounter Summary ---
Author Organization [facility] Address [address] [facility] [place] [address] Care Team Providers Care Patrol Sergeant Sheriff'S Office Name Role Phone Yoselin Jaime FERMIN Unavailable Unallocated, Noms Provider Primary Care Provi kwabena Encounter Details Date Type Department Care Team (Late st Contact Info) Description 06/30/2024 Abstract [facility] BCP OB [address] [place] [address] Cuong Ortiz, DO [address] [place], [place] [address] Social History Tobacco Use Types Packs/Day Years [...] OB [address] [place] [address] Cuong Ortiz, DO [address], [facility]11 documented as of this encounter Goals Goal Patient Goal Type Associated Problems Recent Progress Patient-Stated? Author Reminders Care Plan OB Reminders No Open Scheduling, Background documented as of this encounter Visit Diagnoses Not on filedocumented in this encounter Additional Health Concerns Active Problems Noted Date Diagnosed Date OB Reminders 06/23/2024 documented as of this encounter Care Teams Patrol Sergeant Sheriff'S Office Relationship Specialty Start Date End Date Unallocated, Noms Provider, [address] [place], [place] [phone] PCP - General 03/04/23 Jaime Wyatt PA [address] [place] [address] Referring Physician Physical Medicine and Rehabilitation 03/04/23 documented as of this encounter
--- OUTSIDE RECORDS SUMMARY | 2024-12-01 09:01 | XMS_ITS | Encounter Summary ---
Author Organization [facility] Address [address] [facility] [place] [address] Care Team Providers Care Lens Generator Name Role Phone Yoselin Jaime FERMIN Unavailable Unallocated, Noms Provider Primary Care Provi kwabena Encounter Details Date Type Department Care Team (Late st Contact Info) Description 11/06/2023 Clinisync Result Encounter NOMS External Department Unsolicited Dave Ortiz, [facility] [place], [place] [address] Social History Tobacco Use Types Packs/Day Years [...] Routine [facility] BCP OB [address] [place] [phone] Dave Ortiz DO [facility] [place] [address] documented as of this encounter Procedures Procedure Name Priority Date/Time Associated Diagnosis Comments US OB GROWTH 11/06/2023 3:54 PM EDT documented in this encounter Results * US OB GROWTH (11/06/2023 3:54 PM EDT) Anatomical Region Laterality Modality Other 11/06/2023 3:54 PM EDT Narrative 11/06/2023 3:57 [place] [address] Ultrasound Report Signed Patient: ZULEIKA WADDELL MR#: [id number] : 1990 Acct:[id number] Age/Sex: 33 / F ADM Date: 11/06/23 Loc: US Attending Dr: Dave Ortiz D.O. Ordering Physician: Dave Ortiz D.O. Date of Service: 11/06/23 Procedure(s): US OB growth Accession Number(s): [id number] cc: Dave Ortiz D.O.; Jaime Waddell [place] [address] Patient Name: ZULEIKA WADDELL MRN: [id number] date: 1990 Sex: F Assigned Patient Location: US Current Patient Location: Accession/Order Number: [id number] Exam Date: 11/06/2023 14:19 Report Date: 11/06/2023 [...] M.D. Signed By: 11/06/231556 DD/ 53 TD/TT: Financial Economist: Procedure Note Radiology, Radiologist, MD - 11/06/2023 [place] [address] Ultrasound Report Signed Patient: ZULEIKA WADDELL LMR#: [id number] : 1990Acct:[id number] Age/Sex: 33 FADM Date: 11/06/23 Loc: US Attending Dr: Dave Ortiz D.O. Ordering Physician: Dave Ortiz D.O. Date of Service: 11/06/23 Procedure(s): US OB growth Accession Number(s): [id number] cc: Dave Ortiz D.O.; Jaime Waddell [place] [address] Patient Name: ZULEIKA WADDELL MRN: [id number] date: 1990 Sex: F Assigned Patient Location: US Current Patient Location: Accession/Order Number: [id number] Exam Date: 11/06/2023 14:19 Report Date: 11/06/2023 [...] M.D. Signed By:11/06/23 1557 DD/ 53 TD/TT: Financial Economist: us Dave Diana DO [facility] Final Result documented in this encounter Visit Diagnoses Not on filedocumented in this encounter Care Teams Lens Generator Relationship Specialty Start Date End Date Unallocated, Noms Provider, [address] [place], [place] [phone] PCP - General 03/04/23 Jaime Waddell PA [address] [place], [place] [phone] Referring Physician Physical Medicine and Rehabilitation 03/04/23 documented as of this encounter
--- OUTSIDE RECORDS SUMMARY | 2024-12-01 09:01 | XMS_ITS | Encounter Summary ---
Author Organization [facility] Address [address] [facility] [place] [address] Care Team Providers Care Private Branch Exchange Repairer Name Role Phone Yoselin Jaime FERMIN Unavailable Unallocated, Noms Provider Primary Care Provi kwabena Encounter Details Date Type Department Care Team (Late st Contact Info) Description 05/19/2024 Clinisync Result Encounter NOMS External Department Unsolicited Dave Ortiz, [facility] [place], [place] [address] Social History Tobacco Use Types Packs/Day Years [...] Routine [facility]S BCP OB [address] [place] [phone] Dave Ortiz DO [facility] [place] [address] documented as of this encounter Procedures Procedure Name Priority Date/Time Associated Diagnosis Comments US OB TRANSVAGINAL 05/19/2024 7: 24 AM EST documented in this encounter Results * US OB TRANSVAGINAL (05/19/2024 7:24 AM EST) Anatomical Region Laterality Modality Other 05/19/2024 7:24 AM EST Narrative 05/19/2024 7:27 [place] [address] Ultrasound Report Signed Patient: ZULEIKA WADDELL MR#: [id number] : 1990 Acct:[id number] Age/Sex: 34 / F ADM Date: 05/18/24 Loc: US Attending Dr: Dave Ortiz D.O. Ordering Physician: Dave Ortiz D.O. Date of Service: 05/18/24 Procedure(s): US OB transvaginal Accession Number(s): [id number] cc: Dave Ortiz D.O.; YoselinJaime [place] [address] Patient Name: ZULEIKA WADDELL MRN: [id number] date: 1990 Sex: F Assigned Patient Location: US Current Patient Location: Accession/Order Number: [id number] Exam Date: 05/18/2024 17:15 Report Date: 05/19/2024 [...] M.D. Signed By: 05/19/24726 DD/ 3 TD/TT: Business Services Coordinator: Procedure Note Radiology, Radiologist, - 05/19/2024 [place] [address] Ultrasound Report Signed Patient: ZULEIKA WADDELL LMR#: [id number] : 1990Acct:[id number] Age/Sex: 34 / FADM Date: 05/18/24 Loc: US Attending Dr: Dave Ortiz D.O. Ordering Physician: Dave Ortiz D.O. Date of Service: 05/18/24 Procedure(s): US OB transvaginal Accession Number(s): [id number] cc: Dave Ortiz D.O.; Jaime Waddell [place] [phone] Patient Name: ZULEIKA WADDELL MRN: [id number] date: 1990 Sex: F Assigned Patient Location: US Current Patient Location: Accession/Order Number: [id number] Exam Date: 05/18/2024 17:15 Report Date: 05/19/2024 [...] Crump M.D. Signed By:05/19/24726 DD/ 3 TD/TT: Business Services Coordinator: us Dave Diana DO [facility] Final Result documented in this encounter Visit Diagnoses Not on filedocumented in this encounter Care Teams Private Branch Exchange Repairer Relationship Specialty Start Date End Date Unallocated, Noms Provider, [address] [place] [address] PCP - General 03/04/23 Jaime Waddell PA [address] [place] [address] Referring Physician Physical Medicine and Rehabilitation 03/04/23 documented as of this encounter
--- OUTSIDE RECORDS SUMMARY | 2024-12-01 09:01 | XMS_ITS | Encounter Summary ---
Author Organization [facility] Address [address] [facility] [place] [address] Care Team Providers Care Utility Bill Collection Clerk Name Role Phone Yoselin Jaime FERMIN Unavailable Unallocated, Noms Provider Primary Care Provi kwabena Encounter Details Date Type Department Care Team (Late st Contact Info) Description 11/16/2024 Abstract [facility] OB [address] [place] [address] Cuong Ortiz DO [facility] [address] [place], [place] [address] Social History Tobacco Use Types Packs/Day Years [...] Routine [facility] BCP OB [address] [place] [address] Cuong Ortiz DO [address] [place] [address] documented as of this encounter Goals Goal Patient Goal Type Associated Problems Recent Progress Patient-Stated? Author Reminders Care Plan OB Reminders No Open Scheduling, Background documented as of this encounter Visit Diagnoses Not on filedocumented in this encounter Additional Health Concerns Active Problems Noted Date Diagnosed Date OB Reminders 06/23/2024 documented as of this encounter Care Teams Utility Bill Collection Clerk Relationship Specialty Start Date End Date Unallocated, Noms Provider, [address] [place] [address] PCP - General 03/04/23 Jaime Wyatt PA [address] [place] [address] Referring Physician Physical Medicine and Rehabilitation 03/04/23 documented as of this encounter
--- OUTSIDE RECORDS SUMMARY | 2024-12-01 09:01 | XMS_ITS | Encounter Summary ---
Author Organization [facility] Address [address] [facility] [place] [address] Care Team Providers Care Manager Women Name Role Phone Yoselin Jaime FERMIN Unavailable Unallocated, Noms Provider Primary Care Provi kwabena Encounter Details Date Type Department Care Team (Late st Contact Info) Description 06/26/2024 Abstract [facility] BCP OB [address] [place] [address] Cuong Ortiz, DO [address] [place], [place] [address] Social History Tobacco Use Types Packs/Day Years [...] Routine [facility] BCP OB [address] [place] [address] Cuong Ortiz, DO [address] [place], [facility]11 documented as of this encounter Goals Goal Patient Goal Type Associated Problems Recent Progress Patient-Stated? Author Reminders Care Plan OB Reminders No Open Scheduling, Background documented as of this encounter Visit Diagnoses Not on filedocumented in this encounter Additional Health Concerns Active Problems Noted Date Diagnosed Date OB Reminders 06/23/2024 documented as of this encounter Care Teams Manager Women Relationship Specialty Start Date End Date Unallocated, Noms Provider, [address] [place], [place] [phone] PCP - General 03/04/23 Jaime Wyatt PA [address] [place] [address] Referring Physician Physical Medicine and Rehabilitation 03/04/23 documented as of this encounter
--- OUTSIDE RECORDS SUMMARY | 2024-12-01 09:01 | XMS_ITS | Encounter Summary ---
Author Organization [facility] Address [address] [facility] [place] [address] Care Team Providers Care Souvenir And Novelty Maker Name Role Phone Yoselin Jaime FERMIN Unavailable Unallocated, Noms Provider Primary Care Provi kwabena Encounter Details Date Type Department Care Team (Late st Contact Info) Description 09/07/2024 Abstract [facility] OB [address] [place] [address] Cuong Ortiz DO [facility] [address] [place], [place] [address] Social History Tobacco Use Types Packs/Day Years [...] OB [address] [place] [address] Cuong Ortiz DO [address] [place] [address] documented as of this encounter Goals Goal Patient Goal Type Associated Problems Recent Progress Patient-Stated? Author Reminders Care Plan OB Reminders No Open Scheduling, Background documented as of this encounter Visit Diagnoses Not on filedocumented in this encounter Additional Health Concerns Active Problems Noted Date Diagnosed Date OB Reminders 06/23/2024 documented as of this encounter Care Teams Souvenir And Novelty Maker Relationship Specialty Start Date End Date Unallocated, Noms Provider, [address] [place] [address] PCP - General 03/04/23 Jaime Wyatt PA [address] [place] [address] Referring Physician Physical Medicine and Rehabilitation 03/04/23 documented as of this encounter
--- OUTSIDE RECORDS SUMMARY | 2024-12-01 09:01 | XMS_ITS | Encounter Summary ---
Author Organization [facility] Address [address] [facility] [place] [address] Care Team Providers Care Visiting Housekeeper Name Role Phone Jaime Wyatt Unavailable Unallocated, Noms Provider Primary Care Provi kwabena Encounter Details Date Type Department Care Team (Late st Contact Info) Description 11/07/2023 Abstract [facility] BCP OB [address] [place] [address] Cuogn Ortiz DO [facility] [address] [place], [place] [address] Social History Tobacco Use Types Packs/Day Years [...] [place] [address] Cuong Ortiz DO [facility] [address] [place], [facility]11 documented as of this encounter Visit Diagnoses Not on filedocumented in this encounter Care Teams Visiting Housekeeper Relationship Specialty Start Date End Date Unallocated, Noms Provider, [address] [place], [place] [phone] PCP - General 03/04/23 Jaime Wyatt PA [address] [place], [place] [phone] Referring Physician Physical Medicine and Rehabilitation 03/04/23 documented as of this encounter
--- OUTSIDE RECORDS SUMMARY | 2024-12-01 09:01 | XMS_ITS | Encounter Summary ---
Author Organization [facility] Address [address] [facility] [place] [address] Care Team Providers Care Postdoctoral Scholar Name Role Phone Yoselin Jaime FERMIN Unavailable Unallocated, Noms Provider Primary Care Provi kwabena Encounter Details Date Type Department Care Team (Late st Contact Info) Description 08/28/2024 Abstract [facility] [address] [place] [address] Cuong Ortiz DO [facility] [address], [place] [address] Social History Tobacco Use Types Packs/Day Years [...] Routine [facility] BCP OB [address] [place] [address] Cuong Ortiz DO [address] [place] [address] documented as of this encounter Goals Goal Patient Goal Type Associated Problems Recent Progress Patient-Stated? Author Reminders Care Plan OB Reminders No Open Scheduling, Background documented as of this encounter Visit Diagnoses Not on filedocumented in this encounter Additional Health Concerns Active Problems Noted Date Diagnosed Date OB Reminders 06/23/2024 documented as of this encounter Care Teams Postdoctoral Scholar Relationship Specialty Start Date End Date Unallocated, Noms Provider, [address] [place] [address] PCP - General 03/04/23 Jaime Wyatt PA [address] [place] [address] Referring Physician Physical Medicine and Rehabilitation 03/04/23 documented as of this encounter
--- OUTSIDE RECORDS SUMMARY | 2024-12-01 09:01 | XMS_ITS | Encounter Summary ---
Author Organization [facility] Address [address] [facility] [place] [address] Care Team Providers Care Coil Former Name Role Phone Yoselin Jaime FERMIN Unavailable Unallocated, Noms Provider Primary Care Provi kwabena Encounter Details Date Type Department Care Team (Late Contact Info) Description 11/23/2024 Bamboo flowsheet [facility] OB [address] [place] [address] Cuong Ortiz DO [facility] [place] [address] Social History Tobacco Use Types Packs/Day Years [...] [place] [address] Cuong Ortiz DO [address] [place] [address] documented as of this encounter Goals Goal Patient Goal Type Associated Problems Recent Progress Patient-Stated? Author Reminders Care Plan OB Reminders No Open Scheduling, Background documented as of this encounter Visit Diagnoses Not on filedocumented in this encounter Additional Health Concerns Active Problems Noted Date Diagnosed Date OB Reminders 06/23/2024 documented as of this encounter Care Teams Coil Former Relationship Specialty Start Date End Date Unallocated, Noms Provider, [address] [place] [address] PCP - General 03/04/23 Jaime Wyatt PA [address] [place] [address] Referring Physician Physical Medicine and Rehabilitation 03/04/23 documented as of this encounter
--- OUTSIDE RECORDS SUMMARY | 2024-12-01 09:01 | XMS_ITS | Encounter Summary ---
Author Organization [facility] Address [address] [facility] [place] [address] Care Team Providers Care Master Cosmetologist Name Role Phone Jaime Wyatt Unavailable Unallocated, Noms Provider Primary Care Provi kwabena Encounter Details Date Type Department Care Team (Late st Contact Info) Description 11/18/2023 Abstract [facility] [address] [facility] [place] [address] Destinee Vazquez LPN [address] [employer] [facility] [place] [address] Social History Tobacco Use Types Packs/Day Years [...] PM EDT Routine [facility]CP [facility] [address] [facility] [place] [address] Cuong Ortiz DO [address] [facility] [address] [place] [id number] documented as of this encounter Visit Diagnoses Not on filedocumented in this encounter Care Teams Master Cosmetologist Relationship Specialty Start Date End Date Unallocated, Noms Provider, [address] [place], [place] [address] PCP - General 03/04/23 Jaime Wyatt PA [address] [place], [place] [phone] Referring Physician Physical Medicine and Rehabilitation 03/04/23 documented as of this encounter
--- OUTSIDE RECORDS SUMMARY | 2024-12-01 09:02 | XMS_ITS | Encounter Summary ---
Author Organization [employer] tem Address [id number] [address] 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 Procedures US [facility] with or without consult Dave Ortiz DO Phone: tel: fax: Maternal- Medicine at [address] [address] Phone: tel: fax: Referral ID Status Reason Start Date Expiration Date V isits Requested Visits Authorized [id number] Pending Review 08/27/2024 08/27/2025 1 1 Encounter Details Date Type Department Care Team (Late st Contact Info) Description 08/27/2024 Orders Only Maternal- Medicine at [address] [address] Beronica Minaya CMA History of [...] 2:35 PM EDT) Anatomical Region Laterality Modality OB-ENGRAVER PANTOGRAPH Ultrasound 08/27/2024 1:30 PM EDT Narrative 08/27/2024 5:23 PM EDT NAME: BAIRON TO : 1990 SEX: F Accession Number: [id number] ORDERING PHYSICIAN: DAVE ORTIZ REFERRING PHYSICIAN: DAVE ORTIZ Coding ----- --------- Procedures 91389: Ultrasound, uterus, real time with image documentation, and maternal evaluation plus detailed anatomic examination, transabdominal approach;single or first gestation 12959: Transvaginal Ultrasound (OB) Indication ----- --------- Screening for Anatomic Survey , Screening for cervical length , Chronic hypertension affecting , History of prior with delivery, Supervision of high risk - MOB alcohol syndrome, 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 Para 4 [id number] Current ----- --------- Cell free DNA Low [...] 1 lb 0 oz EFW by Hadlock ([facility]H-AI-SG-FL) Head / Face / Neck Biometry: Cephalic index 0.70 <1% Nicolaides Senior Marketing Analyst 6.1 mm CM 9.9 mm >99% Nicolaides [...] Head / Neck Neck. Heart / Thorax 0-nppolf-ywvbjwn view. Extremities / Right hand. Skeleton Maternal [...] Note Alyson Packer MD - 08/27/2024 NAME: BARION TO : 1990 SEX: F Accession Number: [id number] ORDERING PHYSICIAN: DAVE ORTIZ REFERRING PHYSICIAN: DAVE ORTIZ Coding ----- --------- Procedures 22557: Ultrasound, uterus, real time with imagedocumentation, and maternal evaluation plus detailed anatomic examination, transabdominalapproach;single or first gestation 08989: Transvaginal Ultrasound (OB) Indication ----- --------- Screening for Anatomic Survey , Screening for cervical length , Chronichypertension affecting , History of prior with delivery, Supervision of high risk - MOBfetal alcohol syndrome, 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 Para 4 [id number] Current ----- --------- Cell free DNA Low [...] 1 lb 0 oz EFW by Hadlock ([facility]-MI-AN-FL) Head / Face / Neck Biometry: Cephalic index 0.70 <1% Nicolaides Senior Marketing Analyst 6.1 mm CM 9.9 mm >99% Nicolaides [...] Head / Neck Neck. Heart / Thorax 7-jluzgw-wdttssd view. Extremities / Right hand. Skeleton Maternal [...] 1.01 cm. Recommendations ----- --------- Please see [facility] documentation from today. The patient is scheduled in four to six week(s) to complete anatomicsurvey. Subsequent follow up or other follow up as clinically determined byprimary OB provider unless otherwise specified by [facility]. Results forwarded to ordering provider so [...] documented as of this encounter Care Teams Rad Technologist Relationship Specialty Start Date End Date Jaime Wyatt, SADAF [address] [place], [place] [phone] PCP - General Physician Voice Network Engineer 03/18/18 documented as of this encounter
--- OUTSIDE RECORDS SUMMARY | 2024-12-01 09:02 | XMS_ITS | Clinical Summary ---
Author Organization [facility] Address [address] [place] [address] Care Team Providers Care Gold Leaf Roller Name Role Phone Unavailable Primary Care Provider [...] Billing Address Personal/Family Self 1990 na (Home) [address] [facility] [address] [place] [address] [place] [employer]
--- OUTSIDE RECORDS SUMMARY | 2024-12-01 09:02 | XMS_ITS | Encounter Summary ---
Author Organization [facility] Address [address] [facility] [place] [address] Care Team Providers Care Reliability Manager Name Role Phone Yoselin Jaime FERMIN Unavailable Unallocated, Noms Provider Primary Care Provi kwabena Encounter Details Date Type Department Care Team (Late st Contact Info) Description 10/10/2023 Clinisync Result Encounter [facility] External Department Unsolicited Dave Ortiz, [facility] [address] [place], [place] [address] Social History Tobacco Use Types Packs/Day Years [...] [facility] BCP OB [address] [place] [address] Dave Ortiz [place] [facility] [place] [address] documented as of this encounter Procedures Procedure Name Priority Date/Time Associated Diagnosis Comments US OB GROWTH 10/10/2023 7:18 AM EDT documented in this encounter Results * US OB GROWTH (10/10/2023 7:18 AM EDT) Anatomical Region Laterality Modality Other 10/10/2023 7:18 AM EDT Narrative 10/10/2023 7:21 [place] [address] Ultrasound Report Signed Patient: ZULEIKA WADDELL MR#: [id number] : 1990 Acct:[id number] Age/Sex: 33 / F ADM Date: 10/09/23 Loc: US Attending Dr: Dave Ortiz D.O. Ordering Physician: Dave Ortiz D.O. Date of Service: 10/09/23 Procedure(s): US OB growth Accession Number(s): [id number] cc: Dave Ortiz D.O.; Jaime Waddell [place] [address] Patient Name: ZULEIKA WADDELL MRN: [id number] date: 1990 Sex: F Assigned Patient Location: [facility] Current Patient Location: US Accession/Order Number: [id number] Exam Date: 10/09/2023 15:20 Report Date: 10/10/2023 [...] M.D. Signed By: 10/10/23720 DD/ 7 TD/TT: Painting Supervisor: Procedure Note Radiology, Radiologist, MD - 10/10/2023 [place] [address] Ultrasound Report Signed Patient: ZULEIKA WADDELL LMR#: [id number] : 1990Acct:[id number] Age/Sex: 33 / FADM Date: 10/09/23 Loc: US Attending Dr: Dave Ortiz D.O. Ordering Physician: Dave Ortiz D.O. Date of Service: 10/09/23 Procedure(s): US OB growth Accession Number(s): [id number] cc: Dave Ortiz D.O.; Jaime Waddell [place] [address] Patient Name: ZULEIKA WADDELL MRN: [id number] date: 1990 Sex: F Assigned Patient Location: [facility] Current Patient Location: US Accession/Order Number: [id number] Exam Date: 10/09/2023 15:20 Report Date: 10/10/2023 [...] Dawn M.D. Signed By:10/10/23720 DD/ 7 TD/TT: Painting Supervisor: us Dave Diana DO [facility] Final Result documented in this encounter Visit Diagnoses Not on filedocumented in this encounter Care Teams Reliability Manager Relationship Specialty Start Date End Date Unallocated, Noms Prakash, [address] [place] [address] PCP - General 03/04/23 Jaime Waddell PA [address] [place], [place] [phone] Referring Physician Physical Medicine and Rehabilitation 03/04/23 documented as of this encounter
--- OUTSIDE RECORDS SUMMARY | 2024-12-01 09:02 | XMS_ITS | Encounter Summary ---
Author Organization [facility] Address [address] [facility] [place] [address] Care Team Providers Care Shaping Machine Tender Name Role Phone Yoselin Jaime FERMIN Unavailable Unallocated, Noms Provider Primary Care Provi kwabena Encounter Details Date Type Department Care Team (Late st Contact Info) Description 11/17/2024 Abstract [facility] OB [address] [place] [address] Cuong Ortiz DO [facility] [address] [place], [place] [address] Social History Tobacco Use Types Packs/Day Years [...] OB [address] [place] [address] Cuong Ortiz DO [address] [place] [address] [place] [address] documented as of this encounter Goals Goal Patient Goal Type Associated Problems Recent Progress Patient-Stated? Author Reminders Care Plan OB Reminders No Open Scheduling, Background documented as of this encounter Visit Diagnoses Not on filedocumented in this encounter Additional Health Concerns Active Problems Noted Date Diagnosed Date OB Reminders 06/23/2024 documented as of this encounter Care Teams Shaping Machine Tender Relationship Specialty Start Date End Date Unallocated, Noms Provider, [address] [place] [address] PCP - General 03/04/23 Jaime Wyatt PA [address] [place] [address] Referring Physician Physical Medicine and Rehabilitation 03/04/23 documented as of this encounter
--- OUTSIDE RECORDS SUMMARY | 2024-12-01 09:02 | XMS_ITS | Encounter Summary ---
Author Organization [facility] Address [address] [facility] [place] [address] Care Team Providers Care Wig Comber Name Role Phone Yoselin Jaime FERMIN Unavailable Unallocated, Noms Provider Primary Care Provi kwabena Encounter Details Date Type Department Care Team (Late st Contact Info) Description 10/16/2023 Clinisync Result Encounter [facility] External Department Unsolicited Dave Ortiz, [facility] [address] [place], [place] [address] Social History Tobacco Use Types Packs/Day Years [...] [facility] BCP OB [address] [place] [address] Dave Ortiz DO [facility] [place] [address] documented as of this encounter Procedures Procedure Name Priority Date/Time Associated Diagnosis Comments US OB BPP W NON-STRESS 10/16/2023 3:05 PM EDT documented in this encounter Results * US OB BPP W NON-STRESS (10/16/2023 3:05 PM EDT) Anatomical Region Laterality Modality Other 10/16/2023 3:05 PM EDT Narrative 10/16/2023 3:08 [place] [address] Ultrasound Report Signed Patient: ZULEIKA WADDELL MR#: [id number] : 1990 Acct:[id number] Age/Sex: 33 / F ADM Date: 10/16/23 Loc: [facility] 250-[address]: Dave Ortiz D.O. Ordering Physician: Dave Ortiz D.O. Date of Service: 10/16/23 Procedure(s): US OB BPP w non-stress Accession Number(s): [id number] cc: Dave Ortiz D.O.; WaddellJaime [place] [address] Patient Name: ZULEIKA WADDELL MRN: [id number] date: 1990 Sex: F Assigned Patient Location: [facility] Current Patient Location: [facility] Accession/Order Number: [id number] Exam Date: 10/16/2023 14:10 Report Date: 10/16/2023 [...] Signed By: 10/16/23 1508 DD/ 1505 TD/TT: Veneer Jointer Offbearer: Procedure Note Radiology, Radiologist, - 10/16/2023 [place] [address] Ultrasound Report Signed Patient: ZULEIKA WADDELL LMR#: [id number] : 1990Acct:[id number] Age/Sex: 33 / FADM Date: 10/16/23 Loc: [facility] 250-[address]: Dave Ortiz D.O. Ordering Physician: Dave Ortiz D.O. Date of Service: 10/16/23 Procedure(s): US OB BPP w non-stress Accession Number(s): [id number] cc: Dave Ortiz D.O.; Jaime Waddell [place] [address] Patient Name: ZULEIKA WADDELL MRN: [id number] date: 1990 Sex: F Assigned Patient Location: [facility] Current Patient Location: [facility] Accession/Order Number: [id number] Exam Date: 10/16/2023 14:10 Report Date: 10/16/2023 [...] M.D. Signed By:10/16/23 1508 DD/ 1505 TD/TT: Veneer Jointer Offbearer: us Dave Ortiz DO [facility] Final Result documented in this encounter Visit Diagnoses Not on filedocumented in this encounter Care Teams Wig Comber Relationship Specialty Start Date End Date Unallocated, Noms Provider, [address] [place], [place] [phone] PCP - General 03/04/23 Jaime Waddell PA [address] [place] [address] Referring Physician Physical Medicine and Rehabilitation 03/04/23 documented as of this encounter
--- OUTSIDE RECORDS SUMMARY | 2024-12-01 09:02 | XMS_ITS | Encounter Summary ---
Author Organization [facility] Address [address] [facility] [place] [address] Care Team Providers Care Site Acquisition Specialist Name Role Phone Jaime Wyatt Unavailable Unallocated, Noms Provider Primary Care Provi kwabena Encounter Details Date Type Department Care Team (Late st Contact Info) Description 06/06/2023 Abstract [facility]CP [facility] [address] [facility] [place] [address] Destinee Vazquez LPN [address] [employer] [facility] Derek [place] [address] Social History Tobacco Use Types Packs/Day Years [...] PM EDT Routine [facility] BCP OB [address] [facility] [place] [address] Cuong Ortiz DO [address] [facility] [address] Derek [place] [address] documented as of this encounter Visit Diagnoses Not on filedocumented in this encounter Care Teams Site Acquisition Specialist Relationship Specialty Start Date End Date Unallocated, Noms Provider, [address] [place], [place] [address] PCP - General 03/04/23 Jaime Wyatt PA [address] [place], [place] [address] Referring Physician Physical Medicine and Rehabilitation 03/04/23 documented as of this encounter
--- OUTSIDE RECORDS SUMMARY | 2024-12-01 09:02 | XMS_ITS | Encounter Summary ---
Author Organization [facility] Address [address] [facility] [place] [address] Care Team Providers Care Shooter'S Helper Name Role Phone YoselinJaime FERMIN Unavailable Unallocated, Noms Provider Primary Care Provi kwabena Encounter Details Date Type Department Care Team (Late st Contact Info) Description 04/26/2023 Clinisync Result Encounter [facility] External Department Unsolicited Dave Ortiz, DO [address] [place] [address] Social History Tobacco Use Types Packs/Day Years [...] [facility] BCP OB [address] [place] [address] Dave Ortiz DO [address] [place] [address] documented as of this encounter Procedures Procedure Name Priority Date/Time Associated Diagnosis Comments US OB TRANSVAGINAL 04/26/2023 8: 15 PM EST documented in this encounter Results * US OB TRANSVAGINAL (04/26/2023 8:15 PM EST) Anatomical Region Laterality Modality Other 04/26/2023 8:15 PM EST Narrative 04/26/2023 8:15 PM EST [address] [address] Ultrasound Report Signed Patient: ZULEIKA WADDELL MR#: [id number] : 1990 Acct:[id number] Age/Sex: 33 / F ADM Date: 04/26/23 Loc: US Attending Dr: Dave Ortiz D.O. Ordering Physician: Dave Ortiz D.O. Date of Service: 04/26/23 Procedure(s): US OB transvaginal Accession Number(s): [id number] cc: Dave Ortiz D.O.; Physician,Non-Staff Didi The [address] [address] Patient Name: ZULEIKA WADDELL MRN: [id number] date: 1990 Sex: F Assigned Patient Location: US Current Patient Location: US Accession/Order Number: [id number] Exam Date: 04/26/2023 09:40 Report Date: 04/26/2023 [...] M.D. Signed By: 04/26/232017 DD/ 14 TD/TT: Central Lab Technician: Procedure Note Radiology, Radiologist, MD - 04/26/2023 [place] [address] Ultrasound Report Signed Patient: ZULEIKA WADDELL LMR#: [id number] : 1990Acct:[id number] Age/Sex: 33 / FADM Date: 04/26/23 Loc: US Attending Dr: Dave Ortiz D.O. Ordering Physician: Dave Ortiz D.O. Date of Service: 04/26/23 Procedure(s): US OB transvaginal Accession Number(s): [id number] cc: Dave Ortiz D.O.; Physician,Non-Staff Didi The [place] [address] Patient Name: ZULEIKA WADDELL MRN: [id number] date: 1990 Sex: F Assigned Patient Location: US Current Patient Location: US Accession/Order Number: [id number] Exam Date: 04/26/2023 09:40 Report Date: 04/26/2023 [...] BY US CRL: 8 weeks 4 days HUOG BY US CRL: 12/02/2023 US/US OB transvaginal IMPRESSION: 1. Single live intrauterine 8 weeks 4 days by karo. Electronically authenticated by: JALEN DAWN Date: 04/26/2023 20:15 Dictated By: Jalen Dawn M.D. Signed By:04/26/232017 DD/ 14 TD/TT: Central Lab Technician: us Dave Ortiz DO [facility] Final Result documented in this encounter Visit Diagnoses Not on filedocumented in this encounter Care Teams Shooter'S Helper Relationship Specialty Start Date End Date Unallocated, Noms Provider, [address] [place] [address] PCP - General 03/04/23 Jaime Waddell PA [address] [place], [place] [address] Referring Physician Physical Medicine and Rehabilitation 03/04/23 documented as of this encounter
--- OUTSIDE RECORDS SUMMARY | 2024-12-01 09:02 | XMS_ITS | Encounter Summary ---
Author Organization [facility] Address [address] [place] [address] Care Team Providers Care Investigation Specialist Name Role Phone Yoselin Jaime FERMIN Unavailable Unallocated, Noms Provider Primary Care Provi kwabena Encounter Details Date Type Department Care Team (Late st Contact Info) Description 10/30/2023 Clinisync Result Encounter NOMS External Department Unsolicited Dave Ortiz, DO [facility] [address], [place] [address] Social History Tobacco Use Types Packs/Day Years [...] [facility] BCP OB [address] [place] [address] Dave Ortiz DO [facility] [address] documented as of this encounter Procedures Procedure Name Priority Date/Time Associated Diagnosis Comments US OB BPP W NON-STRESS 10/30/2023 3:23 PM EDT documented in this encounter Results * US OB BPP W NON-STRESS (10/30/2023 3:23 PM EDT) Anatomical Region Laterality Modality Other 10/30/2023 3:23 PM EDT Narrative 10/30/2023 3:25 [place] [address] Ultrasound Report Signed Patient: ZULEIKA WADDELL MR#: [id number] : 1990 Acct:[id number] Age/Sex: 33 / F ADM Date: 10/30/23 Loc: US Attending Dr: Dave Ortiz D.O. Ordering Physician: Dave Ortiz D.O. Date of Service: 10/30/23 Procedure(s): US OB BPP w non-stress Accession Number(s): [id number] cc: Dave Ortiz D.O.; Jaime Waddell [place] [address] Patient Name: ZULEIKA WADDELL MRN: [id number] date: 1990 Sex: F Assigned Patient Location: [facility] Current Patient Location: Accession/Order Number: [id number] Exam Date: 10/30/2023 14:45 Report Date: 10/30/2023 [...] Signed By: 10/30/23 1525 DD/ 22 TD/TT: Gas Engineer: Procedure Note Radiology, Radiologist, - 10/30/2023 [place] [address] Ultrasound Report Signed Patient: ZULEIKA WADDELL LMR#: [id number] : 1990Acct:[id number] Age/Sex: 33 / FADM Date: 10/30/23 Loc: US Attending Dr: Dave Ortiz D.O. Ordering Physician: Dave Ortiz D.O. Date of Service: 10/30/23 Procedure(s): US OB BPP w non-stress Accession Number(s): [id number] cc: Dave Ortiz D.O.; Jaime Waddell The [place] [address] Patient Name: ZULEIKA WADDELL MRN: [id number] date: 1990 Sex: F Assigned Patient Location: [facility] Current Patient Location: Accession/Order Number: [id number] Exam Date: 10/30/2023 14:45 Report Date: 10/30/2023 [...] M.D. Signed By:10/30/23 152 DD/ 22 TD/TT: Gas Engineer: us Dave Diana DO [facility] Final Result documented in this encounter Visit Diagnoses Not on filedocumented in this encounter Care Teams Investigation Specialist Relationship Specialty Start Date End Date Unallocated, Noms Provider, [address] [place] [address] PCP - General 03/04/23 Jaime Waddell PA [address] [place] [address] Referring Physician Physical Medicine and Rehabilitation 03/04/23 documented as of this encounter
--- OUTSIDE RECORDS SUMMARY | 2024-12-01 09:02 | XMS_ITS ---
Author Organization [facility] Address [address] [place] [address] Care Team Providers Care Delivery Lead Name Role Phone Jaime Wyatt Unavailable Unallocated, Noms Provider Primary Care Provi kwabena [facility] Status:Enrolled (Active) Start date:08/11/2024 Enrollment date:08/12/2024 Enrollment reason:Identified by Health Plan Case Team Name Relationship Phone Elena Felix LPN(Responsible Staff) Licensed Prac tical Nurse [phone] Continued Care and Services Coordination
--- OUTSIDE RECORDS SUMMARY | 2024-12-01 09:02 | XMS_ITS | Encounter Summary ---
Author Organization [facility] Address [address] [facility] [place] [address] Care Team Providers Care Patient Service Representative Name Role Phone Yoselin Jaime FERMIN Unavailable Unallocated, Noms Provider Primary Care Provi kwabena Encounter Details Date Type Department Care Team (Late st Contact Info) Description 11/17/2024 Clinisync Result Encounter [facility] External Department Unsolicited Dave Ortiz, DO [address] [place] [address] Social History Tobacco Use Types Packs/Day Years [...] Description 12/07/2024 1:00 PM EDT Routine [facility] OB [address] [place] [address] Dave Ortiz, DO [address] [place] [address] (work) documented as of this encounter Goals [...] AM EDT Narrative 11/17/2024 10:19 [place] [address] Ultrasound Report Signed Patient: ZULEIKA WADDELL MR#: [id number] : 1990 Acct:[id number] Age/Sex: 34 / F ADM Date: 11/17/24 Loc: US Attending Dr: Dave Ortiz D.O. Ordering Physician: Dave Ortiz D.O. Date of Service: 11/17/24 Procedure(s): US OB BPP w non-stress Accession Number(s): [id number] cc: Dave Ortiz D.O.; Ramon Avila M.D. [address] [address] Patient Name: ZULEIKA WADDELL MRN: [id number] date: 1990 Sex: F Assigned Patient Location: [facility] Current Patient Location: Accession/Order Number: [id number] Exam Date: 11/17/2024 10:16 Report Date: 11/17/2024 [...] Mahan M.D. 11/17/2024 10:17 AM Dictation Location: [place] [address] Electronically authenticated by: [id number] Y Date: 11/17/2024 10:17 Dictated By: Adela Mahan M.D. Signed By: 11/17/24 1019 DD/ 1017 TD/TT: Director Traffic And Planning: Procedure Note Radiology, Radiologist, MD - 11/17/2024 [place] [address] Ultrasound Report Signed Patient: ZULEIKA WADDELL LMR#: [id number] : 1990Acct:[id number] Age/Sex: 34 / FADM Date: 11/17/24 Loc: US Attending Dr: Dave Ortiz D.O. Ordering Physician: Dave Ortiz D.O. Date of Service: 11/17/24 Procedure(s): US OB BPP w non-stress Accession Number(s): [id number] cc: Dave Ortiz D.O.; Ramon Avila M.D. The [place] [address] Patient Name: ZULEIKA WADDELL MRN: [facility]:[id number] date: 1990 Sex: F Assigned Patient Location: [facility] Current Patient Location: Accession/Order Number: [id number] Exam Date: 11/17/2024 10:16 Report Date: 11/17/2024 [...] Mahan M.D. 11/17/2024 10:17 AM Dictation Location: [place] [address] Electronically authenticated by: [id number] Y Date: 0:17 Dictated By: Adela Mahan M.D. Signed By:11/17/24 1019 DD/ 1017 TD/TT: Director Traffic And Planning: us Dave Ortiz DO [facility] Final Result documented in this encounter Visit Diagnoses Not on filedocumented in this encounter Additional Health Concerns Active Problems Noted Date Diagnosed Date OB Reminders 06/23/2024 documented as of this encounter Care Teams Patient Service Representative Relationship Specialty Start Date End Date Unallocated, Noms Provider, [address] [place] [address] PCP - General 03/04/23 Jaime Waddell PA [address] [place] [address] Referring Physician Physical Medicine and Rehabilitation 03/04/23 documented as of this encounter
--- OUTSIDE RECORDS SUMMARY | 2024-12-01 09:02 | XMS_ITS | Encounter Summary ---
Author Organization [facility] Address [address] [facility] [place] [address] Care Team Providers Care Integration Software Engineer Name Role Phone WyattJaime FERMIN Unavailable Unallocated, Noms Provider Primary Care Provi kwabena Encounter Details Date Type Department Care Team (Late st Contact Info) Description 09/29/2024 Orders Only [facility] OB [address] [place] [address] Destinee Vazquez LPN [address] [facility] Derek [place] [address] Social History Tobacco Use Types Packs/Day Years [...] PM EDT Routine [facility] [address] [place] [address] Cuong Ortiz, DO [address] [place] [address] documented as of this encounter Goals Goal [...] documented as of this encounter Care Teams Integration Software Engineer Relationship Specialty Start Date End Date Unallocated, Noms Provider, [address] [place] [address] PCP - General 03/04/23 Jaime Wyatt PA [address] [place], [place] [address] Referring Physician Physical Medicine and Rehabilitation 03/04/23 documented as of this encounter
--- OUTSIDE RECORDS SUMMARY | 2024-12-01 09:02 | XMS_ITS | Encounter Summary ---
Author Organization [facility] Address [address] [facility] [place] [address] Care Team Providers Care Conductor Freight Name Role Phone Yoselin Jaime FERMIN Unavailable Unallocated, Noms Provider Primary Care Provi kwabena Encounter Details Date Type Department Care Team (Late st Contact Info) Description 11/24/2024 Clinisync Result Encounter [facility] External Department Unsolicited Dave Ortiz, DO [address] [place] [address] Social History Tobacco Use Types Packs/Day Years [...] Description 12/07/2024 1:00 PM EDT Routine [facility] OB [address] [place] [address] Dave Ortiz, DO [address] [place] [address] [phone] (work) documented as of this encounter Goals [...] AM EDT Narrative 11/24/2024 9:45 [place] [address] Ultrasound Report Signed Patient: ZULEIKA WADDELL MR#: [id number] : 1990 Acct:[id number] Age/Sex: 34 / F ADM Date: 11/24/24 Loc: [facility] 250-[address]: Dave Ortiz D.O. Ordering Physician: Dave Ortiz D.O. Date of Service: 11/24/24 Procedure(s): US OB BPP w non-stress Accession Number(s): [id number] cc: Dave Ortiz D.O.; Ramon Avila M.D. [address] [address] Patient Name: ZULEIKA WADDELL MRN: [facility]:[id number] date: 1990 Sex: F Assigned Patient Location: [facility] Current Patient Location: [facility] Accession/Order Number: [id number] Exam Date: 11/24/2024 09:41 Report Date: 11/24/2024 [...] Mahan M.D. 11/24/2024 9:42 AM Dictation Location: [place] [address] Electronically authenticated by: [id number] Y Date: 11/24/2024 09:42 Dictated By: Adela Mahan M.D. Signed By: 11/24/24944 DD/ 1 TD/TT: Brusher: Procedure Note Radiology, Radiologist, MD - 11/24/2024 [place] [address] Ultrasound Report Signed Patient: ZULEIKA WADDELL LMR#: [id number] : 1990Acct:[id number] Age/Sex: 34 / FADM Date: 11/24/24 Loc: [facility] 250-[address]: Dave Ortiz D.O. Ordering Physician: Dave Ortiz D.O. Date of Service: 11/24/24 Procedure(s): US OB BPP w non-stress Accession Number(s): [id number] cc: Dave Ortiz D.O.; Ramon Avila M.D. The [place] [id number] Patient Name: ZULEIKA WADDELL MRN: [facility]:[id number] date: 1990 Sex: F Assigned Patient Location: [facility] Current Patient Location: [facility] Accession/Order Number: [id number] Exam Date: 11/24/2024 09:41 Report Date: 11/24/2024 [...] Mahan M.D. 11/24/2024 9:42 AM Dictation Location: [place] [address] Electronically authenticated by: [id number] Y Date: 509:42 Dictated By: Adela Mahan M.D. Signed By:11/24/2445 DD/ TD/TT: Brusher: Dave Ortiz DO [facility] Final Result documented in this encounter Visit Diagnoses Not on filedocumented in this encounter Additional Health Concerns Active Problems Noted Date Diagnosed Date OB Reminders 06/23/2024 documented as of this encounter Care Teams Conductor Freight Relationship Specialty Start Date End Date Unallocated, Noms Provider, [address] [place] [address] PCP - General 03/04/23 Jaime Waddell PA [address] [place] [address] Referring Physician Physical Medicine and Rehabilitation 03/04/23 documented as of this encounter
--- OUTSIDE RECORDS SUMMARY | 2024-12-01 09:02 | XMS_ITS | Clinical Summary ---
Author Organization [employer] [facility] tem Address [id number] [address] 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); Christiano cisterna magna (CMS-HCC) - 11/16/2024 12:43 PM EDT - 11/16/2024 11:59 PM EDT Hospital Encounter [facility] US Imaging [address] [place] [address] Supervision of high risk , antepartum Discharge Disposition: Home 11/16/2024 Travel 09/28/2024 2:00 PM EDT Office Visit Maternal- Medicine at [facility] [address] [place] [address] Trav Macdonald MD Christiano cisterna magna (CMS-HCC) - (Primary Dx); Nodular heterotopia (CMS-HCC) - ; 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 Anatomical Region Laterality Modality OB-ICE SKATER Ultrasound 11/16/2024 1:48 PM EDT Narrative 11/16/2024 3:25 PM EDT NAME: YOSELIN TO : 1990 SEX: F Accession Number: [id number] ORDERING PHYSICIAN: TRAV MACDONALD REFERRING PHYSICIAN: DAVE CUELLAR Coding ----- --------- Procedures 58519: Follow-up Ultrasound, per fetus 89145: Echocardiography, , cardiovascular system, real time with [...] ----- --------- OB History 7. Para 4 [id number] Current ----- --------- Cell free DNA Low Risk analysis Maternal Assessment ----- --------- Physical Exam Height 165 cm, 5 ft 5 in. Weight 78 kg, 173 lb. Initial weight 78 kg, 173 lb. BMI 28.79 kg/m . Initial BMI 28.79 kg/m . Weight gain 0 kg, 0 lb Method ----- --------- Transabdominal and transvaginal ultrasound examination ----- --------- Birscoe . Number of fetuses: 1 Dating ----- [...] EFW (oz) 14 oz EFW by: Hadlock (MVP-[id number]-FL) Extended Tibia 58.9 mm 34w 3d 81% Gurdeep Scallop Shucker 6.0 mm CM 14.6 mm Head / [...] Cerebellum. Face: Lips. Nose. Heart/Thorax: 4-chamber view. 6-tsgzmg-hmbbzcx view. Great vessels. Diaphragm. Abdomen: Stomach. Kidneys. [...] view documented previously 3-vessel view documented previously 4-hibtka-vlkebkw view normal Aortic arch view documented previously [...] Recommendations ----- --------- Please see follow up [facility] documentation from today's encounter. Results forwarded to ordering provider so they can follow up with the patient as necessary. Subsequent follow up or other follow up as clinically determined by primary OB provider unless otherwise specified by MFM. Procedure Note Trav Macdonald MD - 11/16/2024 NAME: YOSELIN TO : 1990 SEX: F Accession Number: [id number] ORDERING PHYSICIAN: TRAV MACDONALD REFERRING PHYSICIAN: DAVE CUELLAR Coding ----- --------- Procedures 31604: Follow-up Ultrasound, per fetus 479[address]: Echocardiography, , cardiovascular system, real timewith image documentation (2D), with or without M-mode recording; follow-up or repeat study Indication ----- --------- Screening for follow-up survey, Chronic hypertension affecting ,History of prior with delivery, Supervision of high risk - MOB alcohol syndrome, T13 inprev , MOB club foot, christiano cisterna magna, 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 Para 4 [id number] Current ----- --------- Cell free DNA Low [...] EFW (oz) 14 oz EFW by: Hadlock (HFZ-BD-YK-FL) Extended Tibia 58.9 mm 34w 3d 81% Gurdeep Scallop Shucker 6.0 mm CM 14.6 mm Head / [...] Cerebellum. Face: Lips. Nose. Heart/Thorax: 4-chamber view. 4-wmunok-byjvsai view. Great vessels. Diaphragm. Abdomen: Stomach. Kidneys. [...] view documented previously 3-vessel view documented previously 4-ponfgj-wtknjgp view normal Aortic arch view documented previously [...] specified by MFM. us Trav Macdonald MD [facility] ORDER[facility]LES Final Resul t from Last 3 Months Insurance * Guarantor: Nadine Wyatt Account Type Relation to Patient Date of Phone Billing Address Personal/Family Self 1990 [address] [place] [address] [employer] Care Teams Air Traffic Systems Technician Relationship Specialty Start Date End Date Jaime Wyatt PA-C [address] [place], [place] [id number] PCP - General Physician Network Pricing Consultant 03/18/18
--- OUTSIDE RECORDS SUMMARY | 2024-12-01 09:02 | XMS_ITS | Encounter Summary ---
Author Organization [facility] Address [address] [facility] [place] [address] Care Team Providers Care Polisher Hand Name Role Phone Yoselin Jaime FERMIN Unavailable Unallocated, Noms Provider Primary Care Provi kwabena Encounter Details Date Type Department Care Team (Late st Contact Info) Description 10/24/2023 Clinisync Result Encounter N[facility] External Department Unsolicited Dave Ortiz, [facility] [address], [place] [address] Social History Tobacco Use Types Packs/Day Years [...] [facility] OB [address] [place] [address] Dave Ortiz DO [facility] [place] [address] documented as of this encounter Procedures Procedure Name Priority Date/Time Associated Diagnosis Comments US OB BPP W NON-STRESS 10/24/2023 7:37 AM EDT documented in this encounter Results * US OB BPP W NON-STRESS (10/24/2023 7:37 AM EDT) Anatomical Region Laterality Modality Other 10/24/2023 7:37 AM EDT Narrative 10/24/2023 7:40 [place] [address] Ultrasound Report Signed Patient: ZULEIKA WADDELL MR#: [id number] : 1990 Acct:[id number] Age/Sex: 33 / F ADM Date: 10/23/23 Loc: US Attending Dr: Dave Ortiz D.O. Ordering Physician: Dave Ortiz D.O. Date of Service: 10/23/23 Procedure(s): US OB BPP w non-stress Accession Number(s): [id number] cc: Dave Ortiz D.O.; Jaime Waddell [place] [address] Patient Name: ZULEIKA WADDELL MRN: [facility]:[id number] date: 1990 Sex: F Assigned Patient Location: US Current Patient Location: Accession/Order Number: [id number] Exam Date: 10/23/2023 15:25 Report Date: 10/24/2023 [...] M.D. Signed By: 10/24/23739 DD/ 6 TD/TT: Guidance And Control System Engineer: Procedure Note Radiology, Radiologist, - 10/24/2023 [place] [address] Ultrasound Report Signed Patient: ZULEIKA WADDELL LMR#: [id number] : 1990Acct:[id number] Age/Sex: 33 / FADM Date: 10/23/23 Loc: US Attending Dr: Dave Ortiz D.O. Ordering Physician: Dave Ortiz D.O. Date of Service: 10/23/23 Procedure(s): US OB BPP w non-stress Accession Number(s): [id number] cc: Dave Ortiz D.O.; Jaime Waddell [place] [id number] Patient Name: ZULEIKA WADDELL MRN: [facility]:[id number] date: 1990 Sex: F Assigned Patient Location: US Current Patient Location: US Accession/Order Number: [id number] Exam Date: 10/23/2023 15:25 Report Date: 10/24/2023 [...] Dawn M.D. Signed By:10/24/2340 DD/ 6 TD/TT: Guidance And Control System Engineer: us Dave Ortiz DO [facility] Final Result documented in this encounter Visit Diagnoses Not on filedocumented in this encounter Care Teams Polisher Hand Relationship Specialty Start Date End Date Unallocated, Noms Provider, [address] [place], [place] [address] PCP - General 03/04/23 Jaime Waddell PA [address] [place] [address] Referring Physician Physical Medicine and Rehabilitation 03/04/23 documented as of this encounter
--- OUTSIDE RECORDS SUMMARY | 2024-12-01 09:02 | XMS_ITS | Encounter Summary ---
Author Organization [facility] Address [address] [facility] [place] [address] Care Team Providers Care Book Packer Name Role Phone Yoselin Jaime FERMIN Unavailable Unallocated, Noms Provider Primary Care Provi kwabena Encounter Details Date Type Department Care Team (Late st Contact Info) Description 09/29/2024 Abstract [facility] OB [address] [place] [address] Cuong Ortiz DO [facility] [address] [place], [place] [address] Social History Tobacco Use Types Packs/Day Years [...] [place] [address] Cuong Ortiz DO [address] [place] [address] documented as of this encounter Goals Goal Patient Goal Type Associated Problems Recent Progress Patient-Stated? Author Reminders Care Plan OB Reminders No Open Scheduling, Background documented as of this encounter Visit Diagnoses Not on filedocumented in this encounter Additional Health Concerns Active Problems Noted Date Diagnosed Date OB Reminders 06/23/2024 documented as of this encounter Care Teams Book Packer Relationship Specialty Start Date End Date Unallocated, Noms Provider, [address] [place] [address] PCP - General 03/04/23 Jaime Wyatt PA [address] [place] [address] Referring Physician Physical Medicine and Rehabilitation 03/04/23 documented as of this encounter
--- OUTSIDE RECORDS SUMMARY | 2024-12-01 09:02 | XMS_ITS | Encounter Summary ---
Author Organization [facility] Address [address] [place] [address] Care Team Providers Care Manager Wastewater Name Role Phone Unavailable Primary Care Provider Unavailabl e Source Comments In the event this information is protected by the Federal Confidentiality of Alcohol and Drug AbusePatient Records regulations: The Federal rules restrict any use of the information to criminally investigate or prosecute any alcohol or drug abuse patient.[facility] Encounter Details Date Type Department Care Team (Late st Contact Info) Description 02/10/2022 Lab Requisition [facility] [address] [place] [address] Eleazar Hess PA-C [address] [facility] [place] [phone] Social History Tobacco Use Types Packs/Day Years [...] Report SEE NOTE 02/22/2022 1:25 PM EDT [email or web address] Comment: Finegoldia magna Organism identified by client [...] microdilution method. Unable to provide interpretation for TRAYN values. Susceptibility performed by non-standardized methodology. Interpret results with caution. REKHA M Beta-Lactamase Neg Performed by [facility], [address] [place] [address] [email or web address], Piero Beaver MD, PHD, Lab. Director Micro Specimen SPECIMEN FROM ABSCESS / Unknown 02/05/2022 8:00 PM EDT 02/10/2022 3:57 PM EDT Eleazar Hess PA-C LABORATORY Final Result [facility] [address] [place] [address] * (ABNORMAL) ORGANISM TARYN (02/05/2022 8:00 PM [...] Performing Organization Address City/[facility]/ZIP Co de Phone Number [facility] [address] [address], [place] * (ABNORMAL) ORGANISM ID ANAEROBE (02/05/2022 8:00 PM EDT) Culture, Organism ID Anaerobe Finegoldia magna(A) 02/16/2022 3:33 PM EDT [facility] Micro Specimen SPECIMEN FROM ABSCESS / Unknown 02/05/2022 8:00 PM EDT 02/10/2022 3:57 PM EDT us Eleazar Hess PA-C LABORATORY Final Result Performing Organization Address [facility]/ZIP Co de Phone Number [facility] [address] [address], [place] documented in this encounter Visit Diagnoses Not on filedocumented in this encounter
--- OUTSIDE RECORDS SUMMARY | 2024-12-01 09:02 | XMS_ITS | Clinical Summary ---
Author Organization [facility] Address [address] [place] [address] Care Team Providers Care Receiving Associate Name Role Phone Jaime Wyatt FERMIN Unavailable [...] Plus Multivitamin) 27-1 MG tabletIndication s:First trimester ([facility]) Take 1 tablet by mouth Daily 30 tablet 11 04/29/2024 Active EPINEPHrine (Epipen) 0.3 MG/0.3ML injection syringe 08/29/2024 Active Flonase Allergy Relief 50 MCG/ACT nasal spray 1 (one) time each day at the same time 06/04/2024 Active loratadine (Claritin) 10 MG tablet 1 (one) time each day at the same time 06/04/2024 Active Active Problems Problem Noted Date Diagnosed Date Third trimester ([facility]) 11/23/2024 34 weeks gestation of ([facility]) 2024 Family history of trisomy 13 09/30/2023 Estimated Date of Delivery Comme nts Yes 12/29/2024 Based on last me nstrual period of 03/24/2024 Encounters Date Type Department Care Team Description 11/30/2024 1:10 PM EDT Routine [facility] OB [address] [place] [address] [place] [address] Dave Ortiz, Third trimester ([facility]); 35 weeks gestation of ([facility]) 11/30/2024 Bamboo flowsheet [facility] [address] [place] [address] Dave Ortiz, 11/24/2024 Clinisync Result Encounter [facility] External Department Unsolicited Dave Ortiz, 11/23/2024 2:20 PM EDT Routine [facility] [place] [address] [place] [address] Dave Ortiz, Third trimester ([facility]); 34 weeks gestation of ([facility]) 11/23/2024 Bamboo flowsheet [facility]OM[facility] [address] [place] [address] Dave Ortiz, 11/17/2024 Clinisync Result Encounter [facility] External Department Unsolicited Dave Ortiz, 11/17/2024 Abstract [facility] [place] [address] [place] [address] Dave Ortiz, DO 11/16/2024 Abstract [facility] [place] [address] [place] [address] Dave Ortiz, 11/12/2024 Patient Outreach [facility] [address] [place] [address] Austin ElenaLISHA 11/10/2024 11:00 AM EDT Routine [facility] [address] [place] [address] Dave Ortiz, DO 33 weeks gestation of ([facility]); Third trimester ([facility]) 11/10/2024 Clinisync Result Encounter [facility] External Department Unsolicited Dave Ortiz, DO 11/10/2024 Bamboo flowsheet [facility] [address] [place] [address] Dave Ortiz, DO 11/06/2024 Clinisync Result Encounter [facility] External Department Unsolicited Dave rOtiz, DO 11/03/2024 Clinisync Result Encounter [facility] External Department Unsolicited Dave Ortiz, DO 11/03/2024 Clinisync Result Encounter [facility] External Department Unsolicited Dave Ortiz, DO 10/26/2024 11:20 AM EDT Routine [facility] [address] [place] [address] Dave Ortiz, DO 30 weeks gestation of ([facility]); Third trimester ([facility]); Nadia cisterna magna ([facility]); 28 weeks gestation of ([facility]); SGA (small for gestational age) ([facility]) 10/26/2024 Clinisync Result Encounter [facility] External Department Unsolicited Dave Ortiz, DO 10/26/2024 Bamboo flowsheet [facility] [address] [place] [address] Dave Ortiz, DO 10/20/[address] Telephone [facility] [address] [place] [address] Dave Ortiz, DO 10/19/2024 11:30 AM EDT Ancillary Procedure [facility] [address] [place] [address] Nadia cisterna magna (HCC) 10/18/2024 Travel 10/12/2024 9:20 AM EDT Routine [facility] OB [address] [place] [address] Dave Ortiz, Third trimester ([facility]); 28 weeks gestation of ([facility]); Nadia cisterna magna ([facility]) 10/12/2024 Patient Outreach [facility] [address] [place] [address] Elena Felix, PAPER CONE MAKER 10/12/2024 Bamboo flowsheet [facility] OB [address] [facility] [place] [address] Dave Ortiz, DO 09/29/2024 Orders Only [facility] OB [address] [place] [address] Destinee Vazquez, PAPER CONE MAKER 09/29/2024 Abstract [facility] OB [address] [place] [address] Dave Ortiz, 09/10/2024 11:10 AM EDT Routine [facility] OB [address] [place] [address] Dave Ortiz, Well woman exam with routine gynecological exam; STD exposure; Vaginal discharge; Second trimester ([facility]); 24 weeks gestation of ([facility]) 09/10/2024 Clinisync Result Encounter NOMS External Department Unsolicited Dave Ortiz, 09/10/2024 External Result Encounter [facility]OMS External Department Unsolicited Dave Ortiz, DO 09/10/2024 Bamboo flowsheet [facility] OB [address] [place] [address] Dave Ortiz, 09/08/2024 Patient Outreach [facility] [address] [place] [address] Elena Felxi, PAPER CONE MAKER 09/07/2024 Abstract [facility] OB [address] [facility] [place] [address] Dave Ortiz DO 09/07/2024 Clinisync Result Encounter [facility]OMS External Department Unsolicited Dave Ortiz DO 09/07/2024 Telephone [facility] OB [address] [facility] [place] [address] Dave Ortiz DO from Last 3 [...] Description 12/07/2024 1:00 PM EDT Routine [facility] [place] [place] [address] Dave Ortiz DO [address] [place], [place] [address] [address] Health Maintenance Due Date Last Done [...] Routine 11/30/2024 2:02 PM EDT Third trimester ([facility]) US OB BPP W NON-STRESS 11/24/2024 9:42 AM EDT POCT URINALYSIS DIPSTICK Routine 11/23/2024 2:58 PM EDT Third trimester ([facility]) US OB BPP W NON-STRESS 11/17/2024 10:17 AM EDT POCT URINALYSIS DIPSTICK Routine 11/10/2024 10:32 AM EDT 33 weeks gestation of ([facility]) Third trimester ([facility]) US OB BPP W NON-STRESS 11/10/2024 10:08 AM EDT US OB BPP W NON-STRESS 11/06/2024 2:00 PM EDT US OB GROWTH 11/03/2024 4:34 PM EDT US OB BPP W NON-STRESS 11/03/2024 3:31 PM EDT ALL CBC WITH AUTO DIFF Routine 12:52 PM EDT [facility] CMP (CMP) (FOR REMOTE COUNT INCLUDES THE [facility] USE) Routine 10/26/2024 12:52 PM EDT POCT URINALYSIS DIPSTICK Routine 10/26/2024 11:52 AM EDT 30 weeks gestation of ([facility]) Third trimester ([facility]) US OB FOLLOW UP TRANSABDOMINAL APPROACH Routine 10/19/2024 11:56 AM EDT Nadia cisterna magna ([facility]) POCT URINALYSIS DIPSTICK Routine 10/12/2024 9:39 AM EDT Third trimester ([facility]) POCT URINALYSIS DIPSTICK Routine 09/14/2024 10:18 AM EDT 24 weeks gestation of ([facility]) RECURRENT VAGINITIS (HTRX) Routine 09/10/2024 12:23 PM [...] AM EDT Narrative 11/24/2024 9:45 [place] [address] Ultrasound Report Signed Patient: ZULEIKA WYATT MR#: [id number] : 1990 Acct:[id number] Age/Sex: 34 / F ADM Date: 11/24/24 Loc: [facility] 250-[address]: Dave Ortiz D.O. Ordering Physician: Dave Ortiz D.O. Date of Service: 11/24/24 Procedure(s): US OB BPP w non-stress Accession Number(s): [id number] cc: Dave Ortiz D.O.; Ramon Avila M.D. [place] [address] Patient Name: ZULEIKA WYATT MRN: [id number] date: 1990 Sex: F Assigned Patient Location: [facility] Current Patient Location: [facility] Accession/Order Number: [id number] Exam Date: 11/24/2024 09:41 Report Date: 11/24/2024 [...] Mahan M.D. 11/24/2024 9:42 AM Dictation Location: [place] [address] Electronically authenticated by: [id number] Y Date: 11/24/2024 09:42 Dictated By: Adela Mahan M.D. Signed By: 11/24/2445 DD/ 1 TD/TT: Composition Roll Maker And Cutter: Procedure Note Radiology, Radiologist, - 11/24/2024 [place] [address] Ultrasound Report Signed Patient: ZULEIKA WYATT LMR#: [id number] : 1990Acct:[id number] Age/Sex: 34 / FADM Date: 11/24/24 Loc: [facility] 250-[address]: Dave Ortiz D.O. Ordering Physician: Dave Ortiz D.O. Date of Service: 11/24/24 Procedure(s): US OB BPP w non-stress Accession Number(s): [id number] cc: Dvae Ortiz D.O.; Ramon Avila M.D. The [address] [id number] Patient Name: ZULEIKA WYATT MRN: [id number] date: 1990 Sex: F Assigned Patient Location: [facility] Current Patient Location: [facility] Accession/Order Number: [id number] Exam Date: 11/24/2024 09:41 Report Date: 11/24/2024 [...] Mahan M.D. 11/24/2024 9:42 AM Dictation Location: [place] [address] Electronically authenticated by: [id number] Y Date: 9:42 Dictated By: Adela Mahan M.D. Signed By:11/24/2445 DD/ TD/TT: Composition Roll Maker And Cutter: us Dave Ortiz DO [facility] Final Result * US OB GROWTH (11/03/2024 4:34 PM EDT) Anatomical Region Laterality Modality Other 11/03/2024 4:34 PM EDT Narrative 11/03/2024 4:36 [place] [address] Ultrasound Report Signed Patient: ZULEIKA WYATT MR#: [id number] : 1990 Acct:[id number] Age/Sex: 34 / F ADM Date: 11/03/24 Loc: US Attending Dr: Dave Ortiz D.O. Ordering Physician: Dave Ortiz D.O. Date of Service: 11/03/24 Procedure(s): US OB growth Accession Number(s): [id number] cc: Dave Ortiz D.O.; Ramon Avila M.D. [address] [address] Patient Name: ZULEIKA WYATT MRN: [id number] date: 1990 Sex: F Assigned Patient Location: Current Patient Location: Accession/Order Number: [id number] Exam Date: 11/03/2024 16:30 Report Date: 11/03/2024 [...] Boyce M.D. 11/03/2024 4:34 PM Dictation Location: [place] [address] Electronically authenticated by: [id number] Y Date: 11/03/2024 16:34 Dictated By: Aaron Boyce D.O. Signed By: 11/03/24 1636 DD/ 163 TD/TT: Composition Roll Maker And Cutter: Procedure Note Radiology, Radiologist, - 11/03/2024 [place] [address] Ultrasound Report Signed Patient: ZULEIKA WYATT LMR#: [id number] : 1990Acct:[id number] Age/Sex: 34 / FADM Date: 11/03/24 Loc: US Attending Dr: Dave Ortiz D.O. Ordering Physician: Dave Ortiz D.O. Date of Service: 11/03/24 Procedure(s): US OB growth Accession Number(s): [id number] cc: Dave Ortiz D.O.; Ramon Avila M.D. The [address] [address] Patient Name: ZULEKIA WYATT MRN: [id number] date: 1990 Sex: F Assigned Patient Location: US Current Patient Location: Accession/Order Number: [id number] Exam Date: 11/03/2024 16:30 Report Date: 11/03/2024 [...] Boyce M.D. 11/03/2024 4:34 PM Dictation Location: [place] [address] Electronically authenticated by: [id number] Y Date: 6:34 Dictated By: Aaron Boyce D.O. Signed By:11/03/24 1636 DD/ 1634 TD/TT: Composition Roll Maker And Cutter: us Dave Ortiz DO [facility] Final Result * (ABNORMAL) [facility] CMP (CMP) (FOR REMOTE COUNT INCLUDES THE [facility] USE) (10/26/2024 12:52 PM EDT) SODIUM [...] 0.55 - 1.02 mg/dL TBH TBH EGFR-AF PORTUGUESE >60 >=60 mL/min/1. 73m 2 TBH TBH EGFR-NON AF PORTUGUESE >60 >=60 mL/min/1. 73m 2 TBH BUN [...] us Dave Ortiz DO [facility] Final Result [facility] * (ABNORMAL) ALL CBC WITH AUTO [...] us Dave Diana DO CLINISYNC Final Result [facility] * US OB follow up transabdominal approach [...] II, MD, PHD at 21-Oct-2024 08:41:57 AM [facility] Procedure Note Eloisa Gonzalez MD - [...] signed by ELOISA GONZALEZ II, MD, PHD [id number] 08:41:57 AM [facility] us Dave Diana DO IMG OB US PROCEDURES Final Resul t * RECURRENT VAGINITIS (HTRX) (09/10/2024 12:23 PM EDT) [facility] ATOPOBIUM VAGINAE 0.000 19.961 - 24.689 ppm 09/11/2024 6:30 AM EDT [facility] ATOPOBIUM VAGINAE Not Detected 19.961 - 24.689 ppm 09/11/2024 6:30 AM EDT [facility] BVAB 2,3 (BACTERIAL VAGINOSIS ASSOCIATED BACTERIA 2, 3); MOBILUNCUS SPP 0.000 19.961 - 24.689 ppm 09/11/2024 6:30 AM EDT [facility] BVAB 2,3 (BACTERIAL VAGINOSIS ASSOCIATED BACTERIA 2, 3); MOBILUNCUS SPP Not Detected 19.961 - 24.689 ppm 09/11/2024 6:30 AM EDT [facility] JEREMY ALBICANS, PARAPSILOSIS, TROPICALIS 0.000 19.961 - 30.770 ppm 09/11/2024 6:30 AM EDT [facility] JEREMY ALBICANS, PARAPSILOSIS, TROPICALIS Not Detected 19.961 - 30.770 ppm 09/11/2024 6:30 AM EDT [facility] JEREMY GLABRATA 0.000 23.000 - 32.138 ppm 09/11/2024 6:30 AM EDT [facility] JEREMY GLABRATA Not Detected 23.000 - 32.138 ppm 09/11/2024 6:30 AM EDT [facility] JEREMY KRUSEI 0.000 23.000 - 32.271 ppm 09/11/2024 6:30 AM EDT [facility] [place] JEREMY KRUSEI Not Detected 23.000 - 32.271 ppm 09/11/2024 6:30 AM EDT [facility] [place] CHLAMYDIA TRACHOMATIS 0.000 23.000 - 31.467 ppm 09/11/2024 6:30 AM EDT [facility] [place] CHLAMYDIA TRACHOMATIS Not Detected 23.000 - 31.467 ppm 09/11/2024 6:30 AM EDT [facility] [place] GARDNERELLA VAGINALIS 0.000 19.961 - 24.689 ppm 09/11/2024 6:30 AM EDT [facility] [place] GARDNERELLA VAGINALIS Not Detected 19.961 - 24.689 ppm 09/11/2024 6:30 AM EDT [facility] [place] MEGASPHAERA (TYPES 1, 2) 0.000 19.961 - 24.689 ppm 09/11/2024 6:30 AM EDT [facility] MEGASPHAERA (TYPES 1, 2) Not Detected 19.961 - 24.689 ppm 09/11/2024 6:30 AM EDT [facility] NEISSERIA GONORRHOEAE 0.000 23.000 - 32.117 ppm 09/11/2024 6:30 AM EDT [facility] NEISSERIA GONORRHOEAE Not Detected 23.000 - 32.117 ppm 09/11/2024 6:30 AM EDT [facility] [place] TRICHOMONAS VAGINALIS 0.000 23.000 - 32.119 ppm 09/11/2024 6:30 AM EDT [facility] TRICHOMONAS VAGINALIS Not Detected 23.000 - 32.119 ppm 09/11/2024 6:30 AM EDT [facility] [place] MYCOPLASMA GENITALIUM 0.000 19.961 - 24.689 ppm 09/11/2024 6:30 AM EDT [facility] MYCOPLASMA GENITALIUM Not Detected 19.961 - 24.689 ppm 09/11/2024 6:30 AM EDT [facility] Tissue 09/10/2024 12:2 3 PM EDT 09/11/2024 1:40 AM EDT us Dave Ortiz DO LAB BLOOD ORDERABLES Final Resul t [facility] [place] [address] * IGP,APTIMA HPV,AGE GDLN (09/10/2024 11:42 AM EDT) AGE GDLN ACOG TESTING Note . [facility] Comment: TESTS RESULT FLAG UNITS REF RANGE LAB Clinician Provided Cytology Information Source.............[employer] Other.............. No. of containers..01 ThinPrep Vial Age Algo ACOG Krista... 30-65 01 FLAG LEGEND: L-Low Normal,H-High Normal,LL-Alert Low,HH-Alert High <-Panic Low,>-Panic High,A-Abnormal,AA-Critical Abnormal Performed at: 01 =G [facility] [place] [address] Joann Denney MD, IGP, APTIMA HPV, RFX 16/18,45 Note . [facility] Comment: TESTS RESULT FLAG UNITS REF RANGE LAB DIAGNOSIS: 02 NEGATIVE FOR INTRAEPITHELIAL LESION OR MALIGNANCY. Specimen adequacy: 02 Satisfactory for evaluation. No endocervical component is identified. An endocervical component is not commonly seen in the patient. Performed by: 02 Mindy Martel Meter Technician (ASCP) . 02 Note: Note 02 The [...] Low,>-Panic High,A-Abnormal,AA-Critical Abnormal Performed at: [address] [facility] [address] Joann Denney MD, HPV APTIMA Negative Negative [facility] Comment: This nucleic acid amplification test detects fourteen high- risk HPV types (16,18,31,33,35,39,45,51,52,56,58,59,66,68) without differentiation. Performed at: =G - [facility] [address], [place] [id number] Body Make Up Artist: Joann Denney MD, Phone: [phone] Performed at: [address] [id number] Body Make Up Artist: Joann Denney MD, Phone: [phone] 09/10/2024 11:4 2 AM EDT 09/10/2024 3:18 [...] of Phone Billing Address Personal/Family Self 1990 [address] [place] [address] [employer] [place]ICA[place] Care Teams Receiving Associate Relationship Specialty Start Date End Date Unallocated, Noms Provider, [address] [place], [place] [phone] PCP - General 03/04/23 Jaime Wyatt PA [address] [place] [address] Referring Physician Physical Medicine and Rehabilitation 03/04/23
--- OUTSIDE RECORDS SUMMARY | 2024-12-01 09:02 | XMS_ITS | Encounter Summary ---
Author Organization [facility] tem Address [facility][id number] [address] [place] [address] Care Team Providers Care Communications Professor Name Role Phone Jaime Wyatt PA-C Primary Care Provider [phone] Encounter Details Date Type Department Care Team (Late st Contact Info) Description 03/26/2022 Telephone Maternal- Medicine at [facility] [address] [place] [address] Tamika Branch LPN Social History Tobacco Use [...] on filedocumented in this encounter Care Teams Communications Professor Relationship Specialty Start Date End Date Jaime Wyatt, SADAF [address] [place], [place] [phone] PCP - General Physician Etl Application Developer 03/18/18 documented as of this encounter
--- OUTSIDE RECORDS SUMMARY | 2024-12-01 09:02 | XMS_ITS | Encounter Summary ---
Author Organization [facility] tem Address [facility][id number] [address] 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
--- OUTSIDE RECORDS SUMMARY | 2024-12-01 09:02 | XMS_ITS | Encounter Summary ---
Author Organization [facility] Address [address] [place] [address] Care Team Providers Care Tool Design Engineer Name Role Phone Yoselin Jaime FERMIN Unavailable Unallocated, Noms Provider Primary Care Provi kwabena Encounter Details Date Type Department Care Team (Late st Contact Info) Description 10/21/2023 Clinisync Result Encounter NOMS External Department Unsolicited Dave Ortiz, [facility] [place], [place] [address] Social History Tobacco Use Types Packs/Day Years [...] [facility] BCP OB [address] [place] [phone] Dave Ortiz DO [facility] [place] [address] documented as of this encounter Procedures Procedure Name Priority Date/Time Associated Diagnosis Comments US OB BPP W NON-STRESS 10/21/2023 7:34 AM EDT documented in this encounter Results * US OB BPP W NON-STRESS (10/21/2023 7:34 AM EDT) Anatomical Region Laterality Modality Other 10/21/2023 7:34 AM EDT Narrative 10/21/2023 7:37 [place] [address] Ultrasound Report Signed Patient: ZULEIKA WADDELL MR#: [id number] : 1990 Acct:[id number] Age/Sex: 33 / F ADM Date: 10/19/23 Loc: [facility] Attending Dr: Dave Ortiz D.O. Ordering Physician: Dave Ortiz D.O. Date of Service: 10/19/23 Procedure(s): US OB BPP w non-stress Accession Number(s): [id number] cc: Dave Ortiz D.O.; Jaime Waddell [place] [address] Patient Name: ZULEIKA WADDELL MRN: [id number] date: 1990 Sex: F Assigned Patient Location: [facility] Current Patient Location: [facility] Accession/Order Number: [id number] Exam Date: 10/19/2023 14:53 Report Date: 10/21/2023 [...] M.D. Signed By: 0537 DD/ 3 TD/TT: Supervisor Transferring And Boxing: Procedure Note Radiology, Radiologist, - 10/21/2023 [place] [id number] Ultrasound Report Signed Patient: ZULEIKA WADDELL LMR#: [id number] : 1990Acct:[id number] Age/Sex: 33 / FADM Date: 10/19/23 Loc: [facility]BCO Attending Dr: Dave Ortiz D.O. Ordering Physician: Dave Ortiz D.O. Date of Service: 10/19/23 Procedure(s): US OB BPP w non-stress Accession Number(s): [id number] cc: Dave Ortiz D.O.; Jaime Waddell [place] [id number] Patient Name: ZULEIKA WADDELL MRN: [facility]:[id number] date: 1990 Sex: F Assigned Patient Location: [facility] Current Patient Location: [facility] Accession/Order Number: [id number] Exam Date: 10/19/2023 14:53 Report Date: 10/21/2023 [...] M.D. Signed By:10/21/23 0737 DD/ 3 TD/TT: Supervisor Transferring And Boxing: us Dave Ortiz DO [facility] Final Result documented in this encounter Visit Diagnoses Not on filedocumented in this encounter Care Teams Tool Design Engineer Relationship Specialty Start Date End Date Unallocated, Noms Provider, [address] [place] [address] PCP - General 03/04/23 Jaime Waddell PA [address] [place], [place] [phone] Referring Physician Physical Medicine and Rehabilitation 03/04/23 documented as of this encounter
--- OUTSIDE RECORDS SUMMARY | 2024-12-01 09:02 | XMS_ITS | Encounter Summary ---
Author Organization [facility] Address [address] [facility] [place] [address] Care Team Providers Care Real Estate Administrator Name Role Phone Jaime Wyatt [place] Unavailable Unallocated, Noms Provider Primary Care Provi kwabena Encounter Details Date Type Department Care Team (Late st Contact Info) Description 12/19/[address] [facility] [address] [facility] [address] [place] [phone] Arden Orozco, DO [address] [employer] [address] [place] [address] Social History Tobacco Use Types [...] Routine [facility] BCP OB [address] [place] [address] Cuong Ortiz DO [address] [place] [address] documented as of this encounter Visit Diagnoses Not on filedocumented in this encounter Care Teams Real Estate Administrator Relationship Specialty Start Date End Date Unallocated, Noms Provider, [address] [place] [address] [address] PCP - General 03/04/23 Jaime Wyatt PA [address] [place] [address] Referring Physician Physical Medicine and Rehabilitation 03/04/23 documented as of this encounter
--- OUTSIDE RECORDS SUMMARY | 2024-12-01 09:02 | XMS_ITS | Encounter Summary ---
Author Organization [facility] Address [address] [facility] [place] [address] Care Team Providers Care Rougher Merchant Mill Name Role Phone Yoselin Jaime FERMIN Unavailable Unallocated, Noms Provider Primary Care Provi kwabena Encounter Details Date Type Department Care Team (Late Contact Info) Description 11/30/2024 Bamboo flowsheet [facility] OB [address] [place] [address] Cuong Ortiz DO [facility] [place] [address] Social History Tobacco Use Types Packs/Day Years [...] BCP OB [address] [place] [address] Coung Ortiz DO [address] [place] [address] documented as of this encounter Goals Goal Patient Goal Type Associated Problems Recent Progress Patient-Stated? Author Reminders Care Plan OB Reminders No Open Scheduling, Background documented as of this encounter Visit Diagnoses Not on filedocumented in this encounter Additional Health Concerns Active Problems Noted Date Diagnosed Date OB Reminders 06/23/2024 documented as of this encounter Care Teams Rougher Merchant Mill Relationship Specialty Start Date End Date Unallocated, Noms Provider, [address] [place] [address] PCP - General 03/04/23 Jaime yWatt PA [address] [place] [address] Referring Physician Physical Medicine and Rehabilitation 03/04/23 documented as of this encounter
--- OUTSIDE RECORDS SUMMARY | 2024-12-01 09:02 | XMS_ITS | Encounter Summary ---
Author Organization [facility] Address [address] [facility] [place] [address] Care Team Providers Care Fretted Instrument Repairer Name Role Phone Yoselin Jaime FERMIN Unavailable Unallocated, Noms Provider Primary Care Provi kwabena Encounter Details Date Type Department Care Team (Late st Contact Info) Description 10/10/2023 Clinisync Result Encounter N[facility] External Department Unsolicited Dave Ortiz, [facility] [place], [place] [address] Social History Tobacco Use Types Packs/Day Years [...] Routine [facility] BCP OB [address] [place] [id number] Dave Ortiz DO [facility] [place] [address] documented as of this encounter Procedures Procedure Name Priority Date/Time Associated Diagnosis Comments US OB BPP W NON-STRESS 10/10/2023 7:13 AM EDT documented in this encounter Results * US OB BPP W NON-STRESS (10/10/2023 7:13 AM EDT) Anatomical Region Laterality Modality Other 10/10/2023 7:13 AM EDT Narrative 10/10/2023 7:15 [place] [address] Ultrasound Report Signed Patient: ZULEIKA WADDELL MR#: [id number] : 1990 Acct:[id number] Age/Sex: 33 / F ADM Date: 10/09/23 Loc: US Attending Dr: Dave Ortiz D.O. Ordering Physician: Dave Ortiz D.O. Date of Service: 10/09/23 Procedure(s): US OB BPP w non-stress Accession Number(s): [id number] cc: Dave Ortiz D.O.; Jaime Waddell [place] [address] Patient Name: ZULEIKA WADDELL MRN: [id number] date: 1990 Sex: F Assigned Patient Location: US Current Patient Location: US Accession/Order Number: [id number] Exam Date: 10/09/2023 15:20 Report Date: 10/10/2023 [...] M.D. Signed By: 04/714 DD/ 2 TD/TT: Sales Assistant Entertainment And Media: Procedure Note Radiology, Radiologist, - 10/10/2023 [place] [address] Ultrasound Report Signed Patient: ZULEIKA WADDELL LMR#: [id number] : 1990Acct:[id number] Age/Sex: 33 / FADM Date: 10/09/23 Loc: US Attending Dr: Dave Ortiz D.O. Ordering Physician: Dave Ortiz D.O. Date of Service: 10/09/23 Procedure(s): US OB BPP w non-stress Accession Number(s): [id number] cc: Dave Ortiz D.O.; Jaime Waddell The [place] [id number] Patient Name: ZULEIKA WADDELL MRN: [id number] date: 1990 Sex: F Assigned Patient Location: US Current Patient Location: US Accession/Order Number: [id number] Exam Date: 10/09/2023 15:20 Report Date: 10/10/2023 [...] Dawn M.D. Signed By:10/10/23714 DD/ 2 TD/TT: Sales Assistant Entertainment And Media: us Dave Ortiz DO [facility] Final Result documented in this encounter Visit Diagnoses Not on filedocumented in this encounter Care Teams Fretted Instrument Repairer Relationship Specialty Start Date End Date Unallocated, Noms Provider, [address] [place] [address] PCP - General 03/04/23 Jaime Waddell PA [address] [place] [address] Referring Physician Physical Medicine and Rehabilitation 03/04/23 documented as of this encounter
--- NOTE | 2024-12-01 09:08 | US_ITS ---
[address] [address] Patient Name: ZULEIKA WADDELL MRN: [id number] date: 1990 Sex: F Assigned Patient Location: [facility] Current Patient Location: Accession/Order Number: [id number] Exam Date: 12/01/2024 11:04 Report Date: 12/01/2024 11:12 At the request of: DAVE CUELLAR DO Procedure: US OB growth CLINICAL DATA: Negative cisterna magna ULTRASOUND OB GROWTH. COMPARISON: 11/03/2024 There is a single live intrauterine gestation in cephalic presentation. There is cardiac and somatic activity with heart rate of 136 beats per minutes. The amniotic fluid index measures 11.16 which is in normal range. A nuchal CORD is possible. The following measurements were obtained: Biparietal diameter 8.2 cm 33 weeks 0 days <3% Head circumference 32.2 cm 36 weeks 3 days 29% Abdominal circumference 31.3 cm 35 weeks 2 days 30% Femur length 7.1 cm 36 weeks 2 days 55% The composite ultrasound age based these measurements is 35 weeks 2 days +/- 2 weeks 3 days. The estimated date of delivery is January 03, 2025. The estimated weight is 5 lbs. 14 oz. +/- 14 ounces (35%) US/US OB growth IMPRESSION: SINGLE LIVE INTRAUTERINE GESTATION WITH TODAY'S ULTRASOUND AGE OF 35 WEEKS 2 DAYS. POSSIBLE NUCHAL CORD. BIOPHYSICAL PROFILE: COMPARISON: 11/26/2024 FINDINGS: TONE: 1 or more episodes of activity extension and flexion of extremity or opening and closing of the hand [Y] 2/2 GROSS BODY MOVEMENTS: 3 or more discrete body or limb movements [Y] 2/2 BREATHING MOVEMENTS: 1 or more episodes of breathing lasting at least 30 seconds [Y] 2/2 ANURAG: A single deepest vertical pocket of amniotic fluid greater than 2 cm [Y] 2/2 ANURAG: 11.6 cm cm. This is in normal range. Total score: 8/8 IMPRESSION: NORMAL BIOPHYSICAL PROFILE Impression dictated by: Adela Mahan M.D. 12/01/2024 11:12 AM Dictation Location: [place] [address] Electronically authenticated by: [id number] Y Date: 12/01/2024 11:12
--- NOTE | 2024-12-01 09:08 | US_ITS ---
The [address] [address] Patient Name: ZULEIKA WADDELL MRN: [id number] date: 1990 Sex: F Assigned Patient Location: Current Patient Location: Accession/Order Number: [id number] Exam Date: 12/01/2024 11:04 Report Date: 12/01/2024 11:12 At the request of: DAVE CUELLAR DO Procedure: US OB growth CLINICAL DATA: Negative cisterna magna ULTRASOUND OB GROWTH. COMPARISON: 11/03/2024 There is a single live intrauterine gestation in cephalic presentation. There is cardiac and somatic activity with heart rate of 136 beats per minutes. The amniotic fluid index measures 11.16 which is in normal range. A nuchal CORD is possible. The following measurements were obtained: Biparietal diameter 8.2 cm 33 weeks 0 days <3% Head circumference 32.2 cm 36 weeks 3 days 29% Abdominal circumference 31.3 cm 35 weeks 2 days 30% Femur length 7.1 cm 36 weeks 2 days 55% The composite ultrasound age based these measurements is 35 weeks 2 days +/- 2 weeks 3 days. The estimated date of delivery is January 03, 2025. The estimated weight is 5 lbs. 14 oz. +/- 14 ounces (35%) US/US OB BPP w non-stress IMPRESSION: SINGLE LIVE INTRAUTERINE GESTATION WITH TODAY'S ULTRASOUND AGE OF 35 WEEKS 2 DAYS. POSSIBLE NUCHAL CORD. BIOPHYSICAL PROFILE: COMPARISON: 11/26/2024 FINDINGS: TONE: 1 or more episodes of activity extension and flexion of extremity or opening and closing of the hand [Y] 2/2 GROSS BODY MOVEMENTS: 3 or more discrete body or limb movements [Y] 2/2 BREATHING MOVEMENTS: 1 or more episodes of breathing lasting at least 30 seconds [Y] 2/2 ANURAG: A single deepest vertical pocket of amniotic fluid greater than 2 cm [Y] 2/2 ANURAG: 11.6 cm cm. This is in normal range. Total score: 8/8 IMPRESSION: NORMAL BIOPHYSICAL PROFILE Impression dictated by: Adela Mahan M.D. 12/01/2024 11:12 AM Dictation Location: [place] [address] Electronically authenticated by: [id number] Y Date: 12/01/2024 11:12
[2024-12-01 09:42] VITALS: BP 128/86; PULSE 85
== END 2024-12-01 10:24 | disposition home or self-care (01) ==
LOC: US 08:59 → FBC 09:06
PROVIDERS: PCP Family Medicine; Visit Provider Obstetrics & Gynecology
DX: O26.893 Other specified pregnancy related conditions, third trimester (principal); Z3A.35 35 weeks gestation of pregnancy
CPT/HCPCS: 76816; 76818

== ENCOUNTER 2024-12-04 10:03 | Outpatient (OUT) | payer MEDICAID, SELFPAY ==
--- OUTSIDE RECORDS SUMMARY | 2024-08-25 09:45 | XMS_ITS ---
Author Organization [facility] vices Address [address] [place], [place] [id number] Care Team Providers Care Campaign Fundraiser Name Role Phone Tiffany Petersen Primary Care Provider Ailyn Pringle [phone] REASON FOR VISIT Recall (A) 31 Social History Sex Assigned At : Social History Observation Description Sex Assigned At Female Encounters Encounter Location Date Provider Diagnosis [facility] [address] [place], [place] [id number] 08/25/2024 Ailyn Pringle Plan Of Treatment No Information Progress Notes * Nadine WADDELLDOB: 2 (34 yo F)Acc No.[id number]:08/25/2024 Patient: Nadine BARRETT Provider: Bertin Pringle DMD :1990 A ge:34 Y S ex:Female Date:08/25/2024 Address:[address] [place] [address], [id number] Pcp:Tiffany Petersen Subjective: * Chief Complaints: * 1 . Recall (A) 31. * Medical History: Objective: * Vitals: Assessment: Plan: * Treatment: * Billing Information: * Visit Code: * Procedure Codes: * Electronic signature of Lilo Pringle DMD on 12/04/2024 at 10:05 AM EDT Sign off status: Pending * Provider: Bertin Pringle DMD Date: 0 08/25/2024 Generated for Vale coto/Judy/Kimberley on: 0 12/04/2024 10:05 AM EDT
--- OUTSIDE RECORDS SUMMARY | 2024-08-27 07:41 | XMS_ITS ---
Author Organization [facility] in [place] Address [address] [place] [address] Care Team Providers Care Special Education Bus Driver Name Role Phone Laron Avila Primary Care [...] Active Encounters Encounter Location Date Provider Diagnosis [address] [address] 08/27/2024 Laron Avila Plan Of Treatment Medication [...] Nadine WADDELL LDOB: [birth year] (34 yo F)Acc No.[id number]:08/27/2024 Patient: Nadine BARRETT Nishant :1990 A ge:34 Y S ex:Female Address:[address], [place] [address] * Refills Start Ventolin HFA Aerosol Solution, [...] Date: Generated for Vale coto/Judy/Faisalitting on: 0 12/04/2024 10:05 AM EDT
--- OUTSIDE RECORDS SUMMARY | 2024-08-28 07:32 | XMS_ITS ---
Author Organization The [facility] in [place] Address [address] [place] [address] Care Team Providers Care Associate Agent Insurance Sales Name Role Phone Laron Avila Primary Care Provider REASON FOR VISIT epi pen Medications Medication SIG (Take, Route, Frequency, Duration) Notes Start Date End Date Status EpiPen 2-Long 0.3 MG/0.3ML as directed In jection once prn 08/28/2024 Active Encounters Encounter Location Date Provider Diagnosis [address] [address] 08/28/2024 Laron Avila Plan Of Treatment Medication Medication Name Sig Start Date Stop Date Notes EpiPen 2-Long 0.3 MG/0.3ML as directed Injection once prn 0 08/28/2024 Progress Notes * Nadine WADDELL LDOB: [birth year] (34 yo F)Acc No.[id number]:08/28/2024 Patient: Nadine BARRETT :1990 A ge:34 Y S ex:Female Address:[address] [place] [address], [address] [address] * Refills Start EpiPen 2-Long Solution Auto-injector, 0.3 MG/0.3ML, Injection, 1, as directed, once prn, Refills=11 * true * Date: Generated for Printi ng/Faxing/eTransmitting on: 0 12/04/2024 10:06 AM EDT
--- OUTSIDE RECORDS SUMMARY | 2024-09-11 06:30 | XMS_ITS ---
Author Organization [facility] vices Address [address] [place], [place] [phone] Care Team Providers Care Strategy Analyst Name Role Phone TrinityMaryanaTiffany Primary Care Provider Ailyn Pringle [phone] REASON FOR VISIT Recall (A) 32 Medications [...] Location Date Provider Diagnosis Dental Main [address] [place], [place] [id number] 09/11/2024 Ailyn Pringle Plan Of Treatment No Information Progress Notes * Nadine WADDELLDOB: 2 (34 yo F)Acc No.[id number]:09/11/2024 Patient: Nadine BARRETT Provider: Bertin Pringle DMD :1990 A ge:34 Y S ex:Female Date:09/11/2024 Address:[address], [id number] Pcp:Tiffany Petersen Subjective: * Chief Complaints: * [...] of Lilo Pringle DMD on 12/04/2024 at 10:06 AM EDT Sign off status: Pending * Provider: Bertin Pringle DMD Date: 09/11/2024 Generated for Vale coto/Judy/Kimberley on: 0 12/04/2024 10:06 AM EDT
--- OUTSIDE RECORDS SUMMARY | 2024-09-23 09:05 | XMS_ITS ---
Author Organization The [facility] in [place] Address [address] [place] [address] Care Team Providers Care Quality Systems Engineer Name Role Phone Laron Avila Primary Care Provider [phone] REASON FOR VISIT ER- check on Encounters Encounter Location Date Provider Diagnosis [address] [address] 09/23/2024 Laron Avila Plan Of Treatment No Information Progress Notes * Nadine WADDELL LDOB: [birth year] (34 yo F)Acc No.[id number]:09/23/2024 Patient: Nadine BARRETT :1990 A ge:34 Y S ex:Female Address:[address] [place] [address], [address] [address] * true * Date: Generated for Poppyi chica/Judy/eTransmitting on: 0 12/04/2024 10:05 AM EDT
--- OUTSIDE RECORDS SUMMARY | 2024-11-23 14:20 | XMS_ITS | Encounter Summary ---
Author Organization [facility] Address [address] [facility] [place] [address] Care Team Providers Care Port Drier Name Role Phone Yoselin Jaime FERMIN Unavailable Unallocated, Noms Provider Primary Care Provi kwabena Reason for Visit * Reason Comments Routine Visit Encounter Details Date Type Department Care Team (Late st Contact Info) Description 11/23/2024 2:20 PM EDT Routine [facility] OB [address] [place] [address] Cuong Ortiz, DO [address] [facility] [address] [place], [facility] Third trimester ([facility]); 34 weeks gestation of ([facility]) Social History Tobacco Use Types Packs/Day Years [...] deficit disorder) ADHD (attention deficit hyperactivity disorder) ([facility]) Anxiety Bacterial vaginosis Bipolar disorder Club foot Depression ([facility]) Female infertility Heart problem Hormone imbalance HISTORY PAST MEDICAL HISTORY SOCIAL HISTORY Past Medical History: Diagnosis Date Abscess ADD (attention deficit disorder) ADHD (attention deficit hyperactivity disorder) ([facility]) Anxiety Bacterial vaginosis Bipolar disorder Club foot Depression ([facility]) Female infertility Heart problem [...] nursing note reviewed. Exam conducted with a director compliance present. Vitals: Estimated body mass index is [...] PM EDT Routine [facility] B[facility] OB [address] [facility] [phone] Cuong Ortiz, DO [address] [facility] [place] [address] documented as of this encounter Goals Goal Patient Goal Type Associated Problems Recent Progress Patient-Stated? Author Reminders Care Plan OB Reminders No Open Scheduling, Background documented as of this encounter Procedures Procedure Name Priority Date/Time Associated Diagnosis Comments POCT URINALYSIS DIPSTICK Routine 11/23/2024 2:58 PM EDT Third trimester ([facility]) documented in this encounter Results * [...] this encounter Visit Diagnoses Diagnosis Third trimester ([facility]) state, incidental 34 weeks gestation of ([facility]) documented in this encounter Additional Health Concerns Active Problems Noted Date Diagnosed Date OB Reminders 06/23/2024 documented as of this encounter Care Teams Port Drier Relationship Specialty Start Date End Date Unallocated, Noms Provider, [address] [place] [address] PCP - General 03/04/23 Jaime Wyatt PA [address] [place], [place] [phone] Referring Physician Physical Medicine and Rehabilitation 03/04/23 documented as of this encounter
--- OUTSIDE RECORDS SUMMARY | 2024-11-30 13:10 | XMS_ITS | Encounter Summary ---
Author Organization [facility] Address [address] [facility] [place] [address] Care Team Providers Care Supervisor Lime Name Role Phone YoselinJiame FERMIN Unavailable Unallocated, Noms Provider Primary Care Provi kwabena Reason for Visit * Reason Comments Routine Visit Encounter Details Date Type Department Care Team (Late st Contact Info) Description 11/30/2024 1:10 PM EDT Routine [facility] BCP OB [address] [place] [phone] Cuong Ortiz, DO [address] [facility] [address] Derek [place]ick, [facility]11 Third trimester ([facility]); 35 weeks gestation of ([facility]) Social History Tobacco Use Types Packs/Day Years [...] history of trisomy 13 09/30/2023 Third trimester ([facility]) 11/23/2024 34 weeks gestation of ([facility]) 11/23/2024 Resolved Ambulatory Problems Diagnosis Date Noted [...] nursing note reviewed. Exam conducted with a library helper present. Vitals: Estimated body mass index is 27.6 kg/m?? as calculated from the following: Height as of 10/24/22: 5' 6 . Weight as of 11/23/24: 171 lb. BP: Patient's last menstrual period was 03/24/2024. ASSESSMENT & PLAN ICD-10-CM 1. Third trimester ([facility]) Z34.93 POCT urinalysis dipstick manually resulted CULTURE, GROUP B STREP WITH SUSCEPTIBLITY 2. 35 weeks gestation of ([facility]) Z3A.35 Patient is doing well but has [...] 1:00 PM EDT Routine [facility] BCP OB [address] [place] [address] [place] [phone] Cuong Ortiz, DO [address] [facility] [address] [place] [place] [phone] Scheduled Orders Name Type Priority Associated Diagnoses Orde r Schedule CULTURE, GROUP B STREP WITH SUSCEPTIBLITY Lab Routine Third trimester ([facility]) Expected: 11/30/2024, Expires: 11/30/2025 documented as of this encounter Goals Goal Patient Goal Type Associated Problems Recent Progress Patient-Stated? Author Reminders Care Plan OB Reminders No Open Scheduling, Background documented as of this encounter Procedures Procedure Name Priority Date/Time Associated Diagnosis Comments POCT URINALYSIS DIPSTICK Routine 11/30/2024 2:02 PM EDT Third trimester ([facility]) documented in this encounter Results * (ABNORMAL) [...] this encounter Visit Diagnoses Diagnosis Third trimester ([facility]) state, incidental 35 weeks gestation of ([facility]) documented in this encounter Additional Health Concerns Active Problems Noted Date Diagnosed Date OB Reminders 06/23/2024 documented as of this encounter Care Teams Supervisor Lime Relationship Specialty Start Date End Date Unallocated, Noms Provider, [address] [place] [address] PCP - General 03/04/23 Jaime Wyatt PA [address] [place], [place] [phone] Referring Physician Physical Medicine and Rehabilitation 03/04/23 documented as of this encounter
--- OUTSIDE RECORDS SUMMARY | 2024-12-04 10:05 | XMS_ITS | Encounter Summary ---
Author Organization [facility] Address [address] [facility] [place] [address] Care Team Providers Care Television Script Writer Name Role Phone YoselinJaime FERMIN Unavailable Unallocated, Noms Provider Primary Care Provi kwabena Encounter Details Date Type Department Care Team (Late st Contact Info) Description 12/01/2024 Clinisync Result Encounter [facility] External Department Unsolicited Dave Ortiz, DO [address] [place] [address] Social History Tobacco Use Types Packs/Day Years [...] Description 12/07/2024 1:00 PM EDT Routine [facility] OB [address] [place] [phone] Dave Ortiz, DO [address] [place] [address] (work) documented as of this encounter Goals Goal Patient Goal Type Associated Problems Recent Progress Patient-Stated? Author Reminders Care Plan OB Reminders No Open Scheduling, Background documented as of this encounter Procedures Procedure Name Priority Date/Time Associated Diagnosis Comments US OB GROWTH 12/01/2024 11:12 AM EDT documented in this encounter Results * US OB GROWTH (12/01/2024 11:12 AM EDT) Anatomical Region Laterality Modality Other 12/01/2024 11:1 2 AM EDT Narrative 12/01/2024 11:15 [place] [address] Ultrasound Report Signed Patient: ZULEIKA WADDELL MR#: [id number] : 1990 Acct:[id number] Age/Sex: 34 / F ADM Date: 12/01/24 Loc: US Attending Dr: Dave Ortiz D.O. Ordering Physician: Dave Ortiz D.O. Date of Service: 12/01/24 Procedure(s): US OB growth Accession Number(s): [id number] cc: Dave Ortiz D.O.; Ramon Avila M.D. The [address] [address] Patient Name: ZULEIKA WADDELL MRN: [id number] date: 1990 Sex: F Assigned Patient Location: [facility] Current Patient Location: Accession/Order Number: [id number] Exam Date: 12/01/2024 11:04 Report Date: 12/01/2024 11:12 At the request of: DAVE ORTIZ DO Procedure: US OB growth CLINICAL DATA: Negative cisterna magna ULTRASOUND OB GROWTH. COMPARISON: 11/03/2024 There is a single live intrauterine gestation in cephalic presentation. There is cardiac and somatic activity with heart rate of 136 beats per minutes. The amniotic fluid index measures 11.16 which is in normal range. A nuchal CORD is possible. The following measurements were obtained: Biparietal diameter 8.2 cm 33 weeks 0 days <3% Head circumference 32.2 cm 36 weeks 3 days 29% Abdominal circumference 31.3 cm 35 weeks 2 days 30% Femur length 7.1 cm 36 weeks 2 days 55% The composite ultrasound age based these measurements is 35 weeks 2 days +/- 2 weeks 3 days. The estimated date of delivery is January 03, 2025. The estimated weight is 5 lbs. 14 oz. +/- 14 ounces (35%) US/US OB growth IMPRESSION: SINGLE LIVE INTRAUTERINE GESTATION WITH TODAY'S ULTRASOUND AGE OF 35 WEEKS 2 DAYS. POSSIBLE NUCHAL CORD. BIOPHYSICAL PROFILE: COMPARISON: 11/26/2024 FINDINGS: TONE: 1 or more episodes of [...] greater than 2 cm [Y] 2/2 ANURAG: 11.6 cm cm. This is in normal range. Total score: 8/8 IMPRESSION: NORMAL BIOPHYSICAL PROFILE Impression dictated by: Adela Mahan M.D. 12/01/2024 11:12 AM Dictation Location: [place] [address] Electronically authenticated by: [id number] Y Date: 12/01/2024 11:12 Dictated By: Adela Mahan M.D. Signed By: 12/01/24 1115 DD/ 1112 TD/TT: Log Getter: Procedure Note Radiology, Radiologist, MD - 12/01/2024 [place] [address] Ultrasound Report Signed Patient: ZULEIKA WADDELL LMR#: [id number] : 1990Acct:[id number] Age/Sex: 34 / FADM Date: 12/01/24 Loc: US Attending Dr: Dave Ortiz D.O. Ordering Physician: Dave Ortiz D.O. Date of Service: 12/01/24 Procedure(s): US OB growth Accession Number(s): [id number] cc: Dave Ortiz D.O.; Ramon Avila M.D. [place] [id number] Patient Name: ZULEIKA WADDELL MRN: [id number] date: 1990 Sex: F Assigned Patient Location: [facility] Current Patient Location: Accession/Order Number: [id number] Exam Date: 12/01/2024 11:04 Report Date: 12/01/2024 11:12 At the request of: DAVE ORTIZ DO Procedure: US OB growth CLINICAL DATA: Negative cisterna magna ULTRASOUND OB GROWTH. COMPARISON: 11/03/2024 There is a single live intrauterine gestation in cephalic presentation.There is cardiac and somatic activity with heart rate of 136 beats per minutes. The amniotic fluid index measures 11.16 which is in normalrange. A nuchal CORD is possible. The following measurements were obtained: Biparietal diameter 8.2 cm 33 weeks 0 days <3% Head circumference 32.2 cm 36 weeks 3 days 29% Abdominal circumference 31.3 cm 35 weeks 2 days 30% Femur length 7.1 cm 36 weeks 2 days 55% The composite ultrasound age based these measurements is 35 weeks 2 days+/- 2 weeks 3 days. The estimated date of delivery is January 03, 2025. Theestimated weight is 5 lbs. 14 oz. +/- 14 ounces (35%) US/US OB growth IMPRESSION: SINGLE LIVE INTRAUTERINE GESTATION WITH TODAY'S ULTRASOUND AGE OF 35 WEEKS2 DAYS. POSSIBLE NUCHAL CORD. BIOPHYSICAL PROFILE: COMPARISON: 11/26/2024 FINDINGS: TONE: 1 or more episodes of [...] greater than 2 cm [Y] 2/2 ANURAG: 11.6 cm cm. This is in normal range. Total score: 8/8 IMPRESSION: NORMAL BIOPHYSICAL PROFILE Impression dictated by: Adela Mahan M.D. 12/01/2024 11:12 AM Dictation Location: [place] [address] Electronically authenticated by: [id number] Y Date: 1:12 Dictated By: Adela Mahan M.D. Signed By:12/01/24 1115 DD/ 1112 TD/TT: Log Getter: us Dave Diana DO [facility] Final Result documented in this encounter Visit Diagnoses Not on filedocumented in this encounter Additional Health Concerns Active Problems Noted Date Diagnosed Date OB Reminders 06/23/2024 documented as of this encounter Care Teams Television Script Writer Relationship Specialty Start Date End Date Unallocated, Noms Provider, [address] [place], [place] [phone] PCP - General 03/04/23 Jaime Waddell PA [address] [place] [address] Referring Physician Physical Medicine and Rehabilitation 03/04/23 documented as of this encounter
--- OUTSIDE RECORDS SUMMARY | 2024-12-04 10:05 | XMS_ITS | Encounter Summary ---
Author Organization [facility] Address [address] [facility] [place] [address] Care Team Providers Care Automotive Lot Attendant Name Role Phone Yoselin Jaime FERMIN Unavailable Unallocated, Noms Provider Primary Care Provi kwabena Encounter Details Date Type Department Care Team (Late st Contact Info) Description 12/13/2023 Abstract [facility]CP [facility] [address] [facility] [id number] Destinee Vazquez LPN [address] [facility] [place] [address] Social History Tobacco Use Types Packs/Day Years [...] PM EDT Routine [facility] BCP OB [address] [facility] [place] [address] Cuong Ortiz DO [address] [facility] [address] [place] [id number] documented as of this encounter Visit Diagnoses Not on filedocumented in this encounter Care Teams Automotive Lot Attendant Relationship Specialty Start Date End Date Unallocated, Noms Provider, [address] [place], [place] [phone] PCP - General 03/04/23 Jaime Wyatt PA [address] [place], [place] [phone] Referring Physician Physical Medicine and Rehabilitation 03/04/23 documented as of this encounter
--- OUTSIDE RECORDS SUMMARY | 2024-12-04 10:05 | XMS_ITS | Encounter Summary ---
Author Organization [facility] Address [address] [facility] [place] [address] Care Team Providers Care Oleo Hasher And Renderer Name Role Phone Yoselin Jaime FERMIN Unavailable Unallocated, Noms Provider Primary Care Provi kwabena Encounter Details Date Type Department Care Team (Late st Contact Info) Description 11/18/2023 Abstract [facility]CP [facility] [address] [place] [address] Destinee Vazquez LPN [address] [employer] [facility] [place] [address] Social History Tobacco Use Types Packs/Day Years [...] PM EDT Routine [facility] BCP OB [address] [place] [address] Cuong Ortiz DO [address] [facility] [address] [place] [id number] documented as of this encounter Visit Diagnoses Not on filedocumented in this encounter Care Teams Oleo Hasher And Renderer Relationship Specialty Start Date End Date Unallocated, Noms Provider, [address] [place], [place] [phone] PCP - General 03/04/23 Jaime Wyatt PA [address] [place], [place] [phone] Referring Physician Physical Medicine and Rehabilitation 03/04/23 documented as of this encounter
--- OUTSIDE RECORDS SUMMARY | 2024-12-04 10:05 | XMS_ITS | Encounter Summary ---
Author Organization [facility] Address [address] [facility] [place] [address] Care Team Providers Care Blast Furnace Blower Name Role Phone Yoselin Jaime FERMIN Unavailable Unallocated, Noms Provider Primary Care Provi kwabena Encounter Details Date Type Department Care Team (Late st Contact Info) Description 06/30/2024 Abstract [facility] BCP OB [address] [place] [address] Cuong Ortiz, DO [address], [place] [address] Social History Tobacco Use Types Packs/Day Years [...] [address] Cuong Ortiz, DO [address] [place], [facility] documented as of this encounter Goals Goal Patient Goal Type Associated Problems Recent Progress Patient-Stated? Author Reminders Care Plan OB Reminders No Open Scheduling, Background documented as of this encounter Visit Diagnoses Not on filedocumented in this encounter Additional Health Concerns Active Problems Noted Date Diagnosed Date OB Reminders 06/23/2024 documented as of this encounter Care Teams Blast Furnace Blower Relationship Specialty Start Date End Date Unallocated, Noms Provider, [address] [place], [place] [phone] PCP - General 03/04/23 Jaime Wyatt PA [address] [place] [address] Referring Physician Physical Medicine and Rehabilitation 03/04/23 documented as of this encounter
--- OUTSIDE RECORDS SUMMARY | 2024-12-04 10:05 | XMS_ITS | Encounter Summary ---
Author Organization [facility] Address [address] [facility] [place] [address] Care Team Providers Care Counter Installer Name Role Phone Yoselin Jaime FERMIN Unavailable Unallocated, Noms Provider Primary Care Provi kwabena Encounter Details Date Type Department Care Team (Late st Contact Info) Description 11/16/2024 Abstract [facility] OB [address] [place] [address] Cuong Ortiz DO [facility] [place] [place], [place] [address] Social History Tobacco Use Types Packs/Day Years [...] Routine [facility] BCP OB [address] [place] [address] Cuong Ortiz DO [address] [place] [address] documented as of this encounter Goals Goal Patient Goal Type Associated Problems Recent Progress Patient-Stated? Author Reminders Care Plan OB Reminders No Open Scheduling, Background documented as of this encounter Visit Diagnoses Not on filedocumented in this encounter Additional Health Concerns Active Problems Noted Date Diagnosed Date OB Reminders 06/23/2024 documented as of this encounter Care Teams Counter Installer Relationship Specialty Start Date End Date Unallocated, Noms Provider, [address] [place] [address] PCP - General 03/04/23 Jaime Wyatt PA [address] [place] [address] Referring Physician Physical Medicine and Rehabilitation 03/04/23 documented as of this encounter
--- OUTSIDE RECORDS SUMMARY | 2024-12-04 10:05 | XMS_ITS | Encounter Summary ---
Author Organization [facility] Address [address] [facility] [place] [address] Care Team Providers Care Prepared Foods Production Team Member Name Role Phone YoselinJaime FERMIN Unavailable Unallocated, Noms Provider Primary Care Provi kwabena Encounter Details Date Type Department Care Team (Late st Contact Info) Description 12/01/2024 Clinisync Result Encounter [facility] External Department Unsolicited Dave Ortiz, DO [address] [place] [address] Social History Tobacco Use Types Packs/Day Years [...] Description 12/07/2024 1:00 PM EDT Routine [facility] OB [address] [place] [address] Dave Ortiz, DO [address] [place] [address] (work) documented as of this encounter Goals Goal Patient Goal Type Associated Problems Recent Progress Patient-Stated? Author Reminders Care Plan OB Reminders No Open Scheduling, Background documented as of this encounter Procedures Procedure Name Priority Date/Time Associated Diagnosis Comments US OB BPP W NON-STRESS 12/01/2024 11:12 AM EDT documented in this encounter Results * US OB BPP W NON-STRESS (12/01/2024 11:12 AM EDT) Anatomical Region Laterality Modality Other 12/01/2024 11:1 2 AM EDT Narrative 12/01/2024 11:15 [place] [address] Ultrasound Report Signed Patient: ZULEIKA WADDELL MR#: [id number] : 1990 Acct:[id number] Age/Sex: 34 / F ADM Date: 12/01/24 Loc: US Attending Dr: Dave Ortiz D.O. Ordering Physician: Dave Ortiz D.O. Date of Service: 12/01/24 Procedure(s): US OB BPP w non-stress Accession Number(s): [id number] cc: Dave Ortiz D.O.; Ramon Avila M.D. [address] [id number] Patient Name: ZULEIKA WADDELL MRN: [id number] date: 1990 Sex: F Assigned Patient Location: Current Patient Location: Accession/Order Number: [id number] Exam Date: 12/01/2024 11:04 Report Date: 12/01/2024 [...] oz. +/- 14 ounces (35%) US/US OB BPP w non-stress IMPRESSION: SINGLE LIVE INTRAUTERINE GESTATION WITH TODAY'S [...] Mahan M.D. 12/01/2024 11:12 AM Dictation Location: [place] [address] Electronically authenticated by: [id number] Y Date: 12/01/2024 11:12 Dictated By: Adela Mahan M.D. Signed By: 12/01/24 1115 DD/ 1112 TD/TT: Histology Specialist: Procedure Note Radiology, Radiologist, - 12/01/2024 [place] [address] Ultrasound Report Signed Patient: ZULEIKA WADDELL LMR#: [id number] : 1990Acct:[id number] Age/Sex: 34 / FADM Date: 12/01/24 Loc: US Attending Dr: Dave Ortiz D.O. Ordering Physician: Dave Ortiz D.O. Date of Service: 12/01/24 Procedure(s): US OB BPP w non-stress Accession Number(s): [id number] cc: Dave Ortiz D.O.; Ramon Avila M.D. [address] [address] Patient Name: ZULEIKA WADDELL MRN: [id number] date: 1990 Sex: F Assigned Patient Location: US Current Patient Location: Accession/Order Number: [id number] Exam Date: 12/01/2024 11:04 Report Date: 12/01/2024 [...] lbs. 14 oz. +/- 14 ounces (35%) US/ OB BPP w non-stress IMPRESSION: SINGLE LIVE INTRAUTERINE GESTATION WITH TODAY'S [...] Mahan M.D. 12/01/2024 11:12 AM Dictation Location: [place] [address] Electronically authenticated by: [id number] Y Date: 1:12 Dictated By: Adela Mahan M.D. Signed By:12/01/24 1115 DD/ 1112 TD/TT: Histology Specialist: us Dave Diana DO [facility] Final Result documented in this encounter Visit Diagnoses Not on filedocumented in this encounter Additional Health Concerns Active Problems Noted Date Diagnosed Date OB Reminders 06/23/2024 documented as of this encounter Care Teams Prepared Foods Production Team Member Relationship Specialty Start Date End Date Unallocated, Noms Provider, [address] [place] [address] PCP - General 03/04/23 Jaime Waddell PA [address] [place] [address] Referring Physician Physical Medicine and Rehabilitation 03/04/23 documented as of this encounter
--- OUTSIDE RECORDS SUMMARY | 2024-12-04 10:05 | XMS_ITS | Encounter Summary ---
Author Organization [facility] Address [address] [facility] [place] [address] Care Team Providers Care Homemaking Rehabilitation Consultant Name Role Phone Yoselin Jaime FERMIN Unavailable Unallocated, Noms Provider Primary Care Provi kwabena Encounter Details Date Type Department Care Team (Late st Contact Info) Description 11/07/2023 Clinisync Result Encounter [facility]OMS External Department Unsolicited Dave Ortiz, [facility] [place], [place] [address] Social History Tobacco Use Types Packs/Day Years [...] Routine [facility] BCP OB [address] [place] [address] Dave Ortiz DO [facility] [place] [address] documented as of this encounter Procedures Procedure Name Priority Date/Time Associated Diagnosis Comments US OB BPP W NON-STRESS 11/07/2023 7:10 AM EDT documented in this encounter Results * US OB BPP W NON-STRESS (11/07/2023 7:10 AM EDT) Anatomical Region Laterality Modality Other 11/07/2023 7:10 AM EDT Narrative 11/07/2023 7:13 [place] [address] Ultrasound Report Signed Patient: ZULEIKA WADDELL MR#: [id number] : 1990 Acct:[id number] Age/Sex: 33 / F ADM Date: 11/06/23 Loc: US Attending Dr: Dave Ortiz D.O. Ordering Physician: Dave Ortiz D.O. Date of Service: 11/06/23 Procedure(s): US OB BPP w non-stress Accession Number(s): [id number] cc: Dave Ortiz D.O.; Jaime Waddell [place] [address] Patient Name: ZULEIKA WADDELL MRN: [id number] date: 1990 Sex: F Assigned Patient Location: Current Patient Location: [facility] Accession/Order Number: [id number] Exam Date: 11/06/2023 14:19 Report Date: 11/07/2023 [...] M.D. Signed By: 11/07/23712 DD/ 9 TD/TT: It Architect: Procedure Note Radiology, Radiologist, - 11/07/2023 [place] [address] Ultrasound Report Signed Patient: ZULEIKA WADDELL LMR#: [id number] : 1990Acct:[id number] Age/Sex: 33 / FADM Date: 11/06/23 Loc: US Attending Dr: Dave Ortiz D.O. Ordering Physician: Dave Ortiz D.O. Date of Service: 11/06/23 Procedure(s): US OB BPP w non-stress Accession Number(s): [id number] cc: Dave Ortiz D.O.; Jaime Waddell [place] [id number] Patient Name: ZULEIKA WADDELL MRN: [id number] date: 1990 Sex: F Assigned Patient Location: Current Patient Location: [facility] Accession/Order Number: [id number] Exam Date: 11/06/2023 14:19 Report Date: 11/07/2023 [...] Crump M.D. Signed By:11/07/23712 DD/ 9 TD/TT: It Architect: us Dave Diana DO [facility] Final Result documented in this encounter Visit Diagnoses Not on filedocumented in this encounter Care Teams Homemaking Rehabilitation Consultant Relationship Specialty Start Date End Date Unallocated, Noms Provider, [address] [place], [place] [address] PCP - General 03/04/23 Jaime Waddell PA [address] [place] [address] Referring Physician Physical Medicine and Rehabilitation 03/04/23 documented as of this encounter
--- OUTSIDE RECORDS SUMMARY | 2024-12-04 10:05 | XMS_ITS | Encounter Summary ---
Author Organization [facility] Address [address] [facility] [place] [address] Care Team Providers Care Senior Maintenance Technician Name Role Phone Yoselin Jaime FERMIN Unavailable Unallocated, Noms Provider Primary Care Provi kwabena Encounter Details Date Type Department Care Team (Late st Contact Info) Description 08/28/2024 Abstract [facility] OB [address] [place] [address] Cuong Ortiz DO [facility] [place], [place] [address] Social History Tobacco Use Types Packs/Day Years [...] Cuong Ortiz DO [address] [place] [address] documented as of this encounter Goals Goal Patient Goal Type Associated Problems Recent Progress Patient-Stated? Author Reminders Care Plan OB Reminders No Open Scheduling, Background documented as of this encounter Visit Diagnoses Not on filedocumented in this encounter Additional Health Concerns Active Problems Noted Date Diagnosed Date OB Reminders 06/23/2024 documented as of this encounter Care Teams Senior Maintenance Technician Relationship Specialty Start Date End Date Unallocated, Noms Provider, [address] [place] [address] PCP - General 03/04/23 Jaime Wyatt PA [address] [place] [address] Referring Physician Physical Medicine and Rehabilitation 03/04/23 documented as of this encounter
--- OUTSIDE RECORDS SUMMARY | 2024-12-04 10:05 | XMS_ITS | Encounter Summary ---
Author Organization [facility] Address [address] [facility] [place] [address] Care Team Providers Care Licensed Club Manager Name Role Phone Jaime Wyatt Unavailable Unallocated, Noms Provider Primary Care Provi kwabena Encounter Details Date Type Department Care Team (Late st Contact Info) Description 11/07/2023 Abstract [facility] BCP OB [address] [facility] [place] [address] Cuong Ortiz DO [facility] [place], [place] [address] Social History Tobacco Use Types Packs/Day Years [...] [place] [address] Cuong Ortiz DO [facility] [place], [place] [phone] documented as of this encounter Visit Diagnoses Not on filedocumented in this encounter Care Teams Licensed Club Manager Relationship Specialty Start Date End Date Unallocated, Noms Provider, [address] [place], [place] [phone] PCP - General 03/04/23 Jaime Wyatt PA [address] [place], [place] [address] Referring Physician Physical Medicine and Rehabilitation 03/04/23 documented as of this encounter
--- OUTSIDE RECORDS SUMMARY | 2024-12-04 10:05 | XMS_ITS | Encounter Summary ---
Author Organization [facility] Address [address] [facility] [place] [address] Care Team Providers Care Structures Mechanic Name Role Phone Yoselin Jaime FERMIN Unavailable Unallocated, Noms Provider Primary Care Provi kwabena Encounter Details Date Type Department Care Team (Late st Contact Info) Description 06/26/2024 Abstract [facility] BCP OB [address] [place] [address] Cuong Ortiz, DO [address] [place] [place], [place] [address] Social History Tobacco Use Types Packs/Day Years [...] Routine [facility] BCP OB [address] [place] [address] Cuong Ortiz, DO [address] [place], [facility] documented as of this encounter Goals Goal Patient Goal Type Associated Problems Recent Progress Patient-Stated? Author Reminders Care Plan OB Reminders No Open Scheduling, Background documented as of this encounter Visit Diagnoses Not on filedocumented in this encounter Additional Health Concerns Active Problems Noted Date Diagnosed Date OB Reminders 06/23/2024 documented as of this encounter Care Teams Structures Mechanic Relationship Specialty Start Date End Date Unallocated, Noms Provider, [address] [place], [place] [address] PCP - General 03/04/23 Jaime Wyatt PA [address] [place] [address] Referring Physician Physical Medicine and Rehabilitation 03/04/23 documented as of this encounter
--- OUTSIDE RECORDS SUMMARY | 2024-12-04 10:05 | XMS_ITS | Encounter Summary ---
Author Organization [facility] Address [address] [facility] [place] [address] Care Team Providers Care Research And Development Engineer Name Role Phone Yoselin Jaime FERMIN Unavailable Unallocated, Noms Provider Primary Care Provi kwabena Encounter Details Date Type Department Care Team (Late st Contact Info) Description 11/06/2023 Clinisync Result Encounter [facility]OMS External Department Unsolicited Dave Ortiz, [facility] [place], [place] [address] Social History Tobacco Use Types Packs/Day Years [...] [facility] BCP OB [address] [place] [phone] Dave Ortiz DO [facility] [place] [address] documented as of this encounter Procedures Procedure Name Priority Date/Time Associated Diagnosis Comments US OB GROWTH 11/06/2023 3:54 PM EDT documented in this encounter Results * US OB GROWTH (11/06/2023 3:54 PM EDT) Anatomical Region Laterality Modality Other 11/06/2023 3:54 PM EDT Narrative 11/06/2023 3:57 [place] [address] Ultrasound Report Signed Patient: ZULEIKA WADDELL MR#: [id number] : 1990 Acct:[id number] Age/Sex: 33 / F ADM Date: 11/06/23 Loc: US Attending Dr: Dave Ortiz D.O. Ordering Physician: Dave Ortiz D.O. Date of Service: 11/06/23 Procedure(s): US OB growth Accession Number(s): [id number] cc: Dave Ortiz D.O.; Jaime Waddell [place] [address] Patient Name: ZULEIKA WADDELL MRN: [id number] date: 1990 Sex: F Assigned Patient Location: US Current Patient Location: Accession/Order Number: [id number] Exam Date: 11/06/2023 14:19 Report Date: 11/06/2023 [...] M.D. Signed By: 11/06/231556 DD/ 53 TD/TT: Stone Unloader: Procedure Note Radiology, Radiologist, MD - 11/06/2023 [place] [address] Ultrasound Report Signed Patient: ZULEIKA WADDELL LMR#: [id number] : 1990Acct:[id number] Age/Sex: 33 FADM Date: 11/06/23 Loc: US Attending Dr: Dave Ortiz D.O. Ordering Physician: Dave Ortiz D.O. Date of Service: 11/06/23 Procedure(s): US OB growth Accession Number(s): [id number] cc: Dave Ortiz D.O.; Jaime Waddell [place] [address] Patient Name: ZULEIKA WADDELL MRN: [id number] date: 1990 Sex: F Assigned Patient Location: US Current Patient Location: Accession/Order Number: [id number] Exam Date: 11/06/2023 14:19 Report Date: 11/06/2023 [...] M.D. Signed By:11/06/23 1557 DD/ 53 TD/TT: Stone Unloader: us Dave Diana DO [facility] Final Result documented in this encounter Visit Diagnoses Not on filedocumented in this encounter Care Teams Research And Development Engineer Relationship Specialty Start Date End Date Unallocated, Noms Provider, [address] [place], [place] [phone] PCP - General 03/04/23 Jaime Waddell PA [address] [place], [place] [phone] Referring Physician Physical Medicine and Rehabilitation 03/04/23 documented as of this encounter
--- OUTSIDE RECORDS SUMMARY | 2024-12-04 10:05 | XMS_ITS | Encounter Summary ---
Author Organization [facility] Address [address] [facility] [place] [address] Care Team Providers Care Monogram And Letter Paster Name Role Phone YoselinJaime FERMIN Unavailable Unallocated, Noms Provider Primary Care Provi kwabena Encounter Details Date Type Department Care Team (Late Contact Info) Description 11/23/2024 Bamboo flowsheet [facility] OB [address] [place] [address] Cuong Ortiz DO [facility] [place] [address] Social History Tobacco Use Types Packs/Day [place] [...] [place] [address] Cuong Ortiz DO [address] [place] [address] documented as of this encounter Goals Goal Patient Goal Type Associated Problems Recent Progress Patient-Stated? Author Reminders Care Plan OB Reminders No Open Scheduling, Background documented as of this encounter Visit Diagnoses Not on filedocumented in this encounter Additional Health Concerns Active Problems Noted Date Diagnosed Date OB Reminders 06/23/2024 documented as of this encounter Care Teams Monogram And Letter Paster Relationship Specialty Start Date End Date Unallocated, Noms Provider, [address] [place] [address] PCP - General 03/04/23 Jaime Wyatt PA [address] [place] [address] Referring Physician Physical Medicine and Rehabilitation 03/04/23 documented as of this encounter
--- OUTSIDE RECORDS SUMMARY | 2024-12-04 10:05 | XMS_ITS | Encounter Summary ---
Author Organization [facility] Address [address] [facility] [place] [address] Care Team Providers Care Border Inspector Name Role Phone Yoselin Jaime FERMIN Unavailable Unallocated, Noms Provider Primary Care Provi kwabena Encounter Details Date Type Department Care Team (Late st Contact Info) Description 05/19/2024 Clinisync Result Encounter [facility]S External Department Unsolicited Dave Ortiz, [facility] [place], [place] [address] Social History Tobacco Use Types Packs/Day Years [...] [facility] BCP OB [address] [place] [address] Dave Ortiz DO [facility] [place] [address] documented as of this encounter Procedures Procedure Name Priority Date/Time Associated Diagnosis Comments US OB TRANSVAGINAL 05/19/2024 7: 24 AM EST documented in this encounter Results * US OB TRANSVAGINAL (05/19/2024 7:24 AM EST) Anatomical Region Laterality Modality Other 05/19/2024 7:24 AM EST Narrative 05/19/2024 7:27 [place] [address] Ultrasound Report Signed Patient: ZULEIKA WADDLEL MR#: [id number] : 1990 Acct:[id number] Age/Sex: 34 / F ADM Date: 05/18/24 Loc: US Attending Dr: Dave Ortiz D.O. Ordering Physician: Dave Ortiz D.O. Date of Service: 05/18/24 Procedure(s): US OB transvaginal Accession Number(s): [id number] cc: Dave Ortiz D.O.; YoselinJaime [place] [address] Patient Name: ZULEIKA WADDELL MRN: [id number] date: 1990 Sex: F Assigned Patient Location: US Current Patient Location: Accession/Order Number: [id number] Exam Date: 05/18/2024 17:15 Report Date: 05/19/2024 [...] M.D. Signed By: 05/19/24726 DD/ 3 TD/TT: Remarketing Manager: Procedure Note Radiology, Radiologist, - 05/19/2024 [place] [address] Ultrasound Report Signed Patient: ZULEIKA WADDELL LMR#: [id number] : 1990Acct:[id number] Age/Sex: 34 / FADM Date: 05/18/24 Loc: US Attending Dr: Dave Ortiz D.O. Ordering Physician: Dave Ortiz D.O. Date of Service: 05/18/24 Procedure(s): US OB transvaginal Accession Number(s): [id number] cc: Dave Ortiz D.O.; Jaime Waddell [place] [id number] Patient Name: ZULEIKA WADDELL MRN: [id number] date: 1990 Sex: F Assigned Patient Location: US Current Patient Location: Accession/Order Number: [id number] Exam Date: 05/18/2024 17:15 Report Date: 05/19/2024 [...] Crump M.D. Signed By:05/19/24726 DD/ 3 TD/TT: Remarketing Manager: us Dave Diana DO [facility] Final Result documented in this encounter Visit Diagnoses Not on filedocumented in this encounter Care Teams Border Inspector Relationship Specialty Start Date End Date Unallocated, Noms Provider, [address] [place] [address] PCP - General 03/04/23 Jaime Waddell PA [address] [place] [address] Referring Physician Physical Medicine and Rehabilitation 03/04/23 documented as of this encounter
--- OUTSIDE RECORDS SUMMARY | 2024-12-04 10:06 | XMS_ITS | Encounter Summary ---
Author Organization [facility] Address [address] [facility] [place] [address] Care Team Providers Care Oracle Forms Developer Name Role Phone Yoselin Jaime FERMIN Unavailable Unallocated, Noms Provider Primary Care Provi kwabena Encounter Details Date Type Department Care Team (Late st Contact Info) Description 10/10/2023 Clinisync Result Encounter [facility] External Department Unsolicited Dave Ortiz, [facility] [place], [place] [address] Social History Tobacco Use Types Packs/Day Years [...] [facility] BCP OB [address] [place] [address] Dave Ortiz DO [facility] [place] [address] documented as of this encounter Procedures Procedure Name Priority Date/Time Associated Diagnosis Comments US OB BPP W NON-STRESS 10/10/2023 7:13 AM EDT documented in this encounter Results * US OB BPP W NON-STRESS (10/10/2023 7:13 AM EDT) Anatomical Region Laterality Modality Other 10/10/2023 7:13 AM EDT Narrative 10/10/2023 7:15 [place] [address] Ultrasound Report Signed Patient: ZULEIKA WADDELL MR#: [id number] : 1990 Acct:[id number] Age/Sex: 33 / F ADM Date: 10/09/23 Loc: US Attending Dr: Dave Ortiz D.O. Ordering Physician: Dave Ortiz D.O. Date of Service: 10/09/23 Procedure(s): US OB BPP w non-stress Accession Number(s): [id number] cc: Dave Ortiz D.O.; Jaime Waddell [place] [address] Patient Name: ZULEIKA WADDELL MRN: [id number] date: 1990 Sex: F Assigned Patient Location: US Current Patient Location: US Accession/Order Number: [id number] Exam Date: 10/09/2023 15:20 Report Date: 10/10/2023 [...] M.D. Signed By: 04/714 DD/ 2 TD/TT: Transactional Attorney: Procedure Note Radiology, Radiologist, - 10/10/2023 [place] [address] Ultrasound Report Signed Patient: ZULEIKA WADDELL LMR#: [id number] : 1990Acct:[id number] Age/Sex: 33 / FADM Date: 10/09/23 Loc: US Attending Dr: Dave Ortiz D.O. Ordering Physician: Dave Ortiz D.O. Date of Service: 10/09/23 Procedure(s): US OB BPP w non-stress Accession Number(s): [id number] cc: Dave Ortiz D.O.; Jaime Waddell The [place] [id number] Patient Name: ZULEIKA WADDELL MRN: [id number] date: 1990 Sex: F Assigned Patient Location: US Current Patient Location: US Accession/Order Number: [id number] Exam Date: 10/09/2023 15:20 Report Date: 10/10/2023 [...] Dawn M.D. Signed By:10/10/23714 DD/ 2 TD/TT: Transactional Attorney: us Dave Ortiz DO [facility] Final Result documented in this encounter Visit Diagnoses Not on filedocumented in this encounter Care Teams Oracle Forms Developer Relationship Specialty Start Date End Date Unallocated, Noms Provider, [address] [place] [address] PCP - General 03/04/23 Jaime Waddell PA [address] [place] [address] Referring Physician Physical Medicine and Rehabilitation 03/04/23 documented as of this encounter
--- OUTSIDE RECORDS SUMMARY | 2024-12-04 10:06 | XMS_ITS | Encounter Summary ---
Author Organization [facility] Address [address] [facility] [place] [address] Care Team Providers Care Horse Wrangler Name Role Phone Yoselin Jaime FERMIN Unavailable Unallocated, Noms Provider Primary Care Provi kwabena Encounter Details Date Type Department Care Team (Late st Contact Info) Description 10/10/2023 Clinisync Result Encounter [facility] External Department Unsolicited Dave Ortiz, [facility] [place], [place] [address] Social History Tobacco Use Types Packs/Day Years [...] [facility] BCP OB [address] [place] [address] Dave Ortiz DO [facility] [place] [address] documented as of this encounter Procedures Procedure Name Priority Date/Time Associated Diagnosis Comments US OB GROWTH 10/10/2023 7:18 AM EDT documented in this encounter Results * US OB GROWTH (10/10/2023 7:18 AM EDT) Anatomical Region Laterality Modality Other 10/10/2023 7:18 AM EDT Narrative 10/10/2023 7:21 [place] [address] Ultrasound Report Signed Patient: ZULEIKA WADDELL MR#: [id number] : 1990 Acct:[id number] Age/Sex: 33 / F ADM Date: 10/09/23 Loc: US Attending Dr: Dave Ortiz D.O. Ordering Physician: Dave Ortiz D.O. Date of Service: 10/09/23 Procedure(s): US OB growth Accession Number(s): [id number] cc: Dave Ortiz D.O.; Jaime Waddell [place] [address] Patient Name: ZULEIKA WADDELL MRN: [id number] date: 1990 Sex: F Assigned Patient Location: [facility] Current Patient Location: US Accession/Order Number: [id number] Exam Date: 10/09/2023 15:20 Report Date: 10/10/2023 [...] M.D. Signed By: 10/10/23720 DD/ 7 TD/TT: Electrotype Finisher: Procedure Note Radiology, Radiologist, MD - 10/10/2023 [place] [address] Ultrasound Report Signed Patient: ZULEIKA WADDELL LMR#: [id number] : 1990Acct:[id number] Age/Sex: 33 / FADM Date: 10/09/23 Loc: US Attending Dr: Dave Ortiz D.O. Ordering Physician: Dave Ortiz D.O. Date of Service: 10/09/23 Procedure(s): US OB growth Accession Number(s): [id number] cc: Dave Ortiz D.O.; Jaime Waddell [place] [address] Patient Name: ZULEIKA WADDELL MRN: [id number] date: 1990 Sex: F Assigned Patient Location: [facility] Current Patient Location: US Accession/Order Number: [id number] Exam Date: 10/09/2023 15:20 Report Date: 10/10/2023 [...] Dawn M.D. Signed By:10/10/23720 DD/ 7 TD/TT: Electrotype Finisher: us Dave Diana DO [facility] Final Result documented in this encounter Visit Diagnoses Not on filedocumented in this encounter Care Teams Horse Wrangler Relationship Specialty Start Date End Date Unallocated, Noms Prakash, [address] [place] [address] PCP - General 03/04/23 Jaime Waddell PA [address] [place], [place] [address] Referring Physician Physical Medicine and Rehabilitation 03/04/23 documented as of this encounter
--- OUTSIDE RECORDS SUMMARY | 2024-12-04 10:06 | XMS_ITS | Encounter Summary ---
Author Organization [facility] Address [address] [facility] [place] [address] Care Team Providers Care Muffler Hand Name Role Phone YoselinJaime FERMIN Unavailable Unallocated, Noms Provider Primary Care Provi kwabena Encounter Details Date Type Department Care Team (Late Contact Info) Description 11/30/2024 Bamboo flowsheet [facility] OB [address] [place] [address] Cuong Ortiz DO [facility] [place] [address] Social History Tobacco Use Types Packs/Day Years [...] BCP OB [address] [place] [address] Cuong Ortiz DO [address] [place] [address] documented as of this encounter Goals Goal Patient Goal Type Associated Problems Recent Progress Patient-Stated? Author Reminders Care Plan OB Reminders No Open Scheduling, Background documented as of this encounter Visit Diagnoses Not on filedocumented in this encounter Additional Health Concerns Active Problems Noted Date Diagnosed Date OB Reminders 06/23/2024 documented as of this encounter Care Teams Muffler Hand Relationship Specialty Start Date End Date Unallocated, Noms Provider, [address] [place] [address] PCP - General 03/04/23 Jaime Wyatt PA [address] [place] [address] Referring Physician Physical Medicine and Rehabilitation 03/04/23 documented as of this encounter
--- OUTSIDE RECORDS SUMMARY | 2024-12-04 10:06 | XMS_ITS | Patient Health Record ---
Author Organization [facility] in [place] Address [address] [place] [address] Care Team Providers Care Medical Office Asst Name Role Phone Laron Pulliam Primary Care [...] 01:07:05 PM Interpretation: Performing Lab: Notes/Report: [facility] , White Blood Count 12.5 4.0-11.0 10 [...] Performing Lab: see note ML - [facility] LB ECG 12 lead Reviewed date:09/23/2024 06:29:51 PM Interpretation: Performing Lab: Notes/Report: [facility] [address] [place] [address] Electrocardiograph Report Signed Patient: ZULEIKA WADDELL MR#: [id number] : 1990 Acct:[id number] Age/Sex: 34 / F ADM Date: 09/23/24 Loc: ER Attending Dr: Ordering Physician: Renata Fox D.O. 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 Signed By: 09/23/24 1408 DD/ 1058 TD/TT: Ticker Wirer: [place] [address] Electrocardiograph Report Signed Patient: KJ WADDELL MR#: [id number] : 1990 Acct:[id number] Age/Sex: 34 / F ADM Date: 09/23/24 Loc: ER Attending Dr: Ordering Physician: Renata oFx D.O. 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 Signed By: 09/23/24 1408 DD/ 1058 TD/TT: Ticker Wirer: US OB BPP w non-stress Reviewed date:11/10/2024 04:02:27 PM Interpretation: Performing Lab: Notes/Report: Source Facility: [place] [address] [place] [address] Ultrasound Report Signed Patient: ZULEIKA WADDELL MR#: [id number] : 1990 Acct:[id number] Age/Sex: 34 / F ADM Date: 11/10/24 Loc: US Attending Dr: Dave Ortiz D.O. Ordering Physician: Dave Ortiz D.O. Date of Service: 11/10/24 Procedure(s): US OB BPP w non-stress Accession Number(s): [id number] cc: Dave Ortiz D.O.; Gera Pulliam M.D. The [place] [address] Patient Name: ZULEIKA WADDELL MRN: [id number] date: 1990 Sex: F Assigned Patient Location: [facility] Current Patient Location: Accession/Order Number: [id number] Exam Date: 11/10/2024 10:07 Report Date: 11/10/2024 [...] Mahan M.D. 11/10/2024 10:08 AM Dictation Location: [place] [address] Electronically authenticated by: [id number] Y Date: 11/10/2024 10:08 Dictated By: Adela Mahan M.D. Signed By: 11/10/24 1011 DD/ 1008 TD/TT: Ticker Wirer: [place] [address] Ultrasound Report Signed Patient: KJ WADDELL MR#: [id number] : 1990 Acct:[id number] Age/Sex: 34 / F ADM Date: 11/10/24 Loc: Attending Dr: Dave Ortiz D.O. Ordering Physician: Dave Ortiz D.O. Date of Service: 11/10/24 Procedure(s): US OB BPP w non-stress Accession Number(s): [id number] cc: Dave Ortiz D.O. ; Gera Pulliam M.D. [place] [id number] Patient Name: ZULEIKA WADDELL MRN: [id number] date: 1990 Sex: F Assigned Patient Loc ation: [facility] Current Patient Location: Accession/Order Numb er: [id number] Exam Date: 11/10/2024 10:07 Report Date: 11/10/2024 10:08 At the request of: DAVE ORTIZ DO Procedure: US OB fet al BPP w non-stress BIOPHYSICAL PROFILE: CLINICAL INFORMATION : Christiano cisterna magna Q04.9 Comparison: 11/06/2024 There is a single li ve intrauterine gestation in cephalic presentation. The reported gestational age is 33 weeks 0 days. The heart rate [id number] beats per minute. FINDINGS: TONE: 1 or [...] Mahan M.D. 11/10/2024 10:08 AM Dictation Location: [place] [address] Electronically authenticated by: [id number] Y Date: 11/10/2024 10:08 Dictated By: Adela Mahan M.D. Signed By: 11/10/24 1011 DD/ 1008 TD/TT: Ticker Wirer: US OB BPP w non-stress Reviewed date:12/01/2024 12:51:39 PM Interpretation: Performing Lab: Notes/Report: Source Facility: [place] [address] [place] [address] Ultrasound Report Signed Patient: ZULEIKA WADDELL MR#: [id number] : 1990 Acct:[id number] Age/Sex: 34 / F ADM Date: 12/01/24 Loc: US Attending Dr: Dave Ortiz D.O. Ordering Physician: Dave Ortiz D.O. Date of Service: 12/01/24 Procedure(s): US OB BPP w non-stress Accession Number(s): [id number] cc: Dave Ortiz D.O.; Gera Pulliam M.D. [place] [id number] Patient Name: ZULEIKA WADDELL MRN: [id number] date: 1990 Sex: F Assigned Patient Location: Current Patient Location: Accession/Order Number: [id number] Exam Date: 12/01/2024 11:04 Report Date: 12/01/2024 [...] Mahan M.D. 12/01/2024 11:12 AM Dictation Location: [place] [address] Electronically authenticated by: [id number] Y Date: 12/01/2024 11:12 Dictated By: Adela Mahan M.D. Signed By: 12/01/24 1115 DD/ 111 TD/TT: Ticker Wirer: [place] [address] Ultrasound Report Signed Patient: KJ WADDELL MR#: [id number] : 1990 Acct:[id number] Age/Sex: 34 / F ADM Date: 12/01/24 Loc: US Attending Dr: Dave Ortiz D.O. Ordering Physician: Dave Ortiz D.O. Date of Service: 12/01/24 Procedure(s): US OB BPP w non-stress Accession Number(s): [id number] cc: Dave Ortiz D.O. ; Gera Pulliam M.D. [place] [id number] Patient Name: ZULEIKA WADDELL MRN: [id number] date: 1990 Sex: F Assigned Patient Loc ation: US Current Patient Location: Accession/Order Numb er: [id number] Exam Date: 12/01/2024 11:04 Report Date: 12/01/2024 11:12 At the request of: DAVE ORTIZ DO Procedure: US OB growth CLINICAL DATA: Negat russ cisterna magna ULTRASOUND OB GROWTH. COMPARISON: 11/03/2024 There is a single li ve intrauterine gestation in cephalic presentation. There is cardiac and somatic activity with heart rate of 136 beats per minutes. The amnioti c fluid index measures 11.16 which is in normal range. A nuchal CORD is possible. The following measur ements were obtained: Biparietal diameter 8.2 cm 33 weeks 0 days <3% Head circumference 3 2.2 cm 36 weeks 3 days 29% Abdominal circumfere nce 31.3 cm 35 weeks 2 days 30% Femur length 7.1 cm 36 weeks 2 days 55% The composite ultras ound age based these measurements is 35 weeks 2 days +/- 2 weeks 3 days. The es timated date of delivery is January 03, 2025. The estimated weight is 5 lb s. 14 oz. +/- 14 ounces (35%) U S/US OB BPP w non-stress IMPRESSION: SINGLE LIVE INTRAUTE RINE GESTATION WITH TODAY'S ULTRASOUND AGE OF 35 WEEKS 2 DAYS. POSSIBLE NUCHAL CORD. BIOPHYSICAL PROFILE: COMPARISON: 11/26/2024 FINDINGS: TONE: 1 or mor e episodes [...] cm [Y] 2/2 ANURAG: 11.6 cm cm. Thi s is in normal range. Total score: 8/8 IMPRESSION: NORMAL BIOPHYSICAL PROFILE Impression dictated by: Adela Mahan M.D. 12/01/2024 11:12 AM Dictation Location: [place] [address] Electronically authenticated by: [id number] Y Date: 12/01/2024 11:12 Dictated By: Adela Mahan M.D. Signed By: 12/01/24 1115 DD/ 11 TD/TT: Ticker Wirer: OB growth Reviewed date:12/01/2024 12:51:39 PM Interpretation: Performing Lab: Notes/Report: Source Facility: [place] [address] [place] [address] Ultrasound Report Signed Patient: ZULEIKA WADDELL MR#: [id number] : 1990 Acct:[id number] Age/Sex: 34 / F ADM Date: 12/01/24 Loc: US Attending Dr: Dave Ortiz D.O. Ordering Physician: Dave Ortiz D.O. Date of Service: 12/01/24 Procedure(s): US OB growth Accession Number(s): [id number] cc: Dave Ortiz D.O.; Gera Pulliam M.D. [address] [address] Patient Name: ZULEIKA WADDELL MRN: [id number] date: 1990 Sex: F Assigned Patient Location: [facility] Current Patient Location: Accession/Order Number: [id number] Exam Date: 12/01/2024 11:04 Report Date: 12/01/2024 [...] Mahan M.D. 12/01/2024 11:12 AM Dictation Location: [place] [address] Electronically authenticated by: [id number] Y Date: 12/01/2024 11:12 Dictated By: Adela Mahan M.D. Signed By: 12/01/24 111 DD/ 111 TD/TT: Ticker Wirer: [place] [address] Ultrasound Report Signed Patient: KJ WADDELL MR#: [id number] : 1990 Acct:[id number] Age/Sex: 34 / F ADM Date: 12/01/24 Loc: US Attending Dr: Dave Ortiz D.O. Ordering Physician: Dave Ortiz D.O. Date of Service: 12/01/24 Procedure(s): US OB growth Accession Number(s): [id number] cc: Dave Ortiz D.O. ; Gera Pulliam M.D. The [place] [address] Patient Name: ZULEIKA WADDELL MRN: [id number] date: 1990 Sex: F Assigned Patient Loc ation: [facility] Current Patient Location: Accession/Order Numb er: [id number] Exam Date: 12/01/2024 11:04 Report Date: 12/01/2024 11:12 At the request of: DAVE ORTIZ DO Procedure: US OB growth CLINICAL DATA: Negat russ cisterna magna ULTRASOUND OB GROWTH. COMPARISON: 11/03/2024 There is a single li ve intrauterine gestation in cephalic presentation. There is cardiac and somatic activity with heart rate of 136 beats per minutes. The amnioti c fluid index measures 11.16 which is in normal range. A nuchal CORD is possible. The following measur ements were obtained: Biparietal diameter 8.2 cm 33 weeks 0 days <3% Head circumference 3 2.2 cm 36 weeks 3 days 29% Abdominal circumfere nce 31.3 cm 35 weeks 2 days 30% Femur length 7.1 cm 36 weeks 2 days 55% The composite ultras ound age based these measurements is 35 weeks 2 days +/- 2 weeks 3 days. The es timated date of delivery is January 03, 2025. The estimated weight is 5 lb s. 14 oz. +/- 14 ounces (35%) U S/US OB growth IMPRESSION: SINGLE LIVE INTRAUTE RINE GESTATION WITH TODAY'S ULTRASOUND AGE OF 35 WEEKS 2 DAYS. POSSIBLE NUCHAL CORD. BIOPHYSICAL PROFILE: COMPARISON: 11/26/2024 FINDINGS: TONE: 1 or mor e episodes [...] cm [Y] 2/2 ANURAG: 11.6 cm cm. Thi s is in normal range. Total score: 8/8 IMPRESSION: NORMAL BIOPHYSICAL PROFILE Impression dictated by: Adela Mahan M.D. 12/01/2024 11:12 AM Dictation Location: [place] [address] Electronically authenticated by: [id number] Y Date: 12/01/2024 11:12 Dictated By: Adela Mahan M.D. Signed By: 12/01/24 1115 DD/ 1112 TD/TT: Ticker Wirer: US OB BPP w non-stress Reviewed date:11/24/2024 04:35:00 PM Interpretation: Performing Lab: Notes/Report: Source Facility: [place] [address] [place] [address] Ultrasound Report Signed Patient: ZULEIKA WADDELL MR#: [id number] : 1990 Acct:[id number] Age/Sex: 34 / F ADM Date: 11/24/24 Loc: [facility] 250-[address]: Dave Ortiz D.O. Ordering Physician: Dave Ortiz D.O. Date of Service: 11/24/24 Procedure(s): US OB BPP w non-stress Accession Number(s): [id number] cc: Dave Ortiz D.O.; Gera Pulliam M.D. [place] [address] Patient Name: ZULEIKA WADDELL MRN: [id number] date: 1990 Sex: F Assigned Patient Location: [facility] Current Patient Location: [facility] Accession/Order Number: [id number] Exam Date: 11/24/2024 09:41 Report Date: 11/24/2024 [...] Mahan M.D. 11/24/2024 9:42 AM Dictation Location: [place] [address] Electronically authenticated by: [id number] Y Date: 11/24/2024 09:42 Dictated By: Adela Mahan M.D. Signed By: 11/24/24 0945 DD/ TD/TT: Ticker Wirer: [place] [address] Ultrasound Report Signed Patient: KJ WADDELL MR#: [id number] : 1990 Acct:[id number] Age/Sex: 34 / F ADM Date: 11/24/24 Loc: [facility] 250-[address]: Dave Ortiz D.O. Ordering Physician: Dave Ortiz D.O. Date of Service: 11/24/24 Procedure(s): US OB BPP w non-stress Accession Number(s): [id number] cc: Dave Ortiz D.O. ; Gera Pulliam M.D. The [address] [address] Patient Name: ZULEIKA WADDELL MRN: [id number] date: 1990 Sex: F Assigned Patient Loc ation: FB Current Patient Loca tion: [facility] Accession/Order Numb er: [id number] Exam Date: 11/24/2024 09:41 Report Date: 11/24/2024 [...] Mahan M.D. 11/24/2024 9:42 AM Dictation Location: [place] [address] Electronically authenticated by: [id number] Y Date: 11/24/2024 09:42 Dictated By: Adela Mahan M.D. Signed By: 11/24/2445 DD/ 1 TD/TT: Ticker Wirer: OB BPP w non-stress Reviewed date:11/17/2024 04:34:46 PM Interpretation: Performing Lab: Notes/Report: Source Facility: [place] [address] Ultrasound Report Signed Patient: ZULEIKA WADDELL MR#: [id number] : 1990 Acct:[id number] Age/Sex: 34 / F ADM Date: 11/17/24 Loc: US Attending Dr: Dave Ortiz D.O. Ordering Physician: Dave Ortiz D.O. Date of Service: 11/17/24 Procedure(s): US OB BPP w non-stress Accession Number(s): [id number] cc: Dave Ortiz D.O.; Gera Pulliam M.D. The [place] [address] Patient Name: ZULEIKA WADDELL MRN: [id number] date: 1990 Sex: F Assigned Patient Location: [facility] Current Patient Location: Accession/Order Number: [id number] Exam Date: 11/17/2024 10:16 Report Date: 11/17/2024 10:17 At the request of: ADVE ORTIZ DO Procedure: US OB BPP w [...] Mahan M.D. 11/17/2024 10:17 AM Dictation Location: [place] [address] Electronically authenticated by: [id number] Y Date: 11/17/2024 10:17 Dictated By: Adela Mahan M.D. Signed By: 11/17/24 1019 DD/ 1017 TD/TT: Ticker Wirer: [place] [address] Ultrasound Report Signed Patient: KJ WADDELL MR#: [id number] : 1990 Acct:[id number] Age/Sex: 34 / F ADM Date: 11/17/24 Loc: US Attending Dr: Dave Ortiz D.O. Ordering Physician: Dave Ortiz D.O. Date of Service: 11/17/24 Procedure(s): US OB BPP w non-stress Accession Number(s): [id number] cc: Dave Ortiz D.O. ; Gera Pulliam M.D. The [place] [id number] Patient Name: ZULEIKA WADDELL MRN: [id number] date: 1990 Sex: F Assigned Patient Loc ation: [facility] Current Patient Location: Accession/Order Numb er: [id number] Exam Date: 11/17/2024 10:16 Report Date: 11/17/2024 [...] Mahan M.D. 11/17/2024 10:17 AM Dictation Location: [place] [address] Electronically authenticated by: [id number] Y Date: 11/17/2024 10:17 Dictated By: Adela Mahan M.D. Signed By: 11/17/24 1019 DD/ 1017 TD/TT: Ticker Wirer: US OB BPP w non-stress Reviewed date:11/07/2024 11:57:39 AM Interpretation: Performing Lab: Notes/Report: Source Facility: [place] [address] Ultrasound Report Signed Patient: ZULEIKA WADDELL MR#: [id number] : 1990 Acct:[id number] Age/Sex: 34 / F ADM Date: 11/06/24 Loc: [facility] Attending Dr: Dave Ortiz D.O. Ordering Physician: Dave Ortiz D.O. Date of Service: 11/06/24 Procedure(s): US OB BPP w non-stress Accession Number(s): [id number] cc: Dave Ortiz D.O.; Gera Pulliam M.D. [place] [id number] Patient Name: ZULEIKA WADDELL MRN: [id number] date: 1990 Sex: F Assigned Patient Location: [facility] Current Patient Location: Accession/Order Number: [id number] Exam Date: 11/06/2024 13:51 Report Date: 11/06/2024 [...] Giang M.D. 11/06/2024 2:00 PM Dictation Location: [place] [address] Electronically authenticated by: [id number] Y Date: 11/06/2024 14:00 Dictated By: Jimy Giang M.D. Signed By: 11/06/24 1403 DD/ 99 TD/TT: Ticker Wirer: [place] [address] Ultrasound Report Signed Patient: KJ WADDELL MR#: [id number] : 1990 Acct:[id number] Age/Sex: 34 / F ADM Date: 11/06/24 Loc: [facility] Attending Dr: Dave Ortiz D.O. Ordering Physician: Dave Ortiz D.O. Date of Service: 11/06/24 Procedure(s): US OB BPP w non-stress Accession Number(s): [id number] cc: Dave Ortiz D.O. ; Gera Pulliam M.D. [place] [id number] Patient Name: ZULEIKA WADDELL MRN: [id number] date: 1990 Sex: F Assigned Patient Loc ation: [facility] Current Patient Location: Accession/Order Numb er: [id number] Exam Date: 11/06/2024 13:51 Report Date: 11/06/2024 [...] move ments: 2/2. Amniotic fluid volume: 2/2 Rust/ OB BPP w non-stress IMPRESSION: Biophysical profile score: 8/8 Estimated gestationa l age: 32 weeks and 3 days heart rate: 131 bpm. Amniotic fluid index : 12.1 cm. Impression dictated by: Jimy Giang M.D. 11/06/2024 2:00 PM Dictation Location: [place] [address] Electronically authenticated by: [id number] Y Date: 11/06/2024 14:00 Dictated By: Jimy Giang M.D. Signed By: 11/06/24 1403 DD/ 1400 TD/TT: Ticker Wirer: US OB growth Reviewed date:11/03/2024 08:40:24 PM Interpretation: Performing Lab: Notes/Report: Source Facility: [place] [address] Ultrasound Report Signed Patient: ZULEIKA WADDELL MR#: [id number] : 1990 Acct:[id number] Age/Sex: 34 / F ADM Date: 11/03/24 Loc: US Attending Dr: Dave Ortiz D.O. Ordering Physician: Dave Ortiz D.O. Date of Service: 11/03/24 Procedure(s): US OB growth Accession Number(s): [id number] cc: Dave Ortiz D.O.; Gera Pulliam M.D. [place] [address] Patient Name: ZULEIKA WADDELL MRN: [id number] date: 1990 Sex: F Assigned Patient Location: Current Patient Location: Accession/Order Number: [id number] Exam Date: 11/03/2024 16:30 Report Date: 11/03/2024 [...] Boyce M.D. 11/03/2024 4:34 PM Dictation Location: [place] [address] Electronically authenticated by: [id number] Y Date: 11/03/2024 16:34 Dictated By: Aaron Boyce D.O. Signed By: 11/03/24 1636 DD/ 1634 TD/TT: Ticker Wirer: [place] [address] Ultrasound Report Signed Patient: KJ WADDELL MR#: [id number] : 1990 Acct:[id number] Age/Sex: 34 / F ADM Date: 11/03/24 Loc: US Attending Dr: Dave Ortiz D.O. Ordering Physician: Dave Ortiz D.O. Date of Service: 11/03/24 Procedure(s): US OB growth Accession Number(s): [id number] cc: Dave Ortiz D.O. ; Gera Pulliam M.D. [place] [id number] Patient Name: ZULEIKA WADDELL MRN: [id number] date: 1990 Sex: F Assigned Patient Loc ation: US Current Patient Location: Accession/Order Numb er: [id number] Exam Date: 11/03/2024 16:30 Report Date: 11/03/2024 [...] Boyce M.D. 11/03/2024 4:34 PM [facility]ation [facility] Electron[facility] authenticated by: [id number] Y Date: 11/03/2024 16:34 Dictated By: Basilio Boyce D.O. Signed By: 11/03/24 1636 DD/ 1634 TD/TT: Ticker Wirer: US OB BPP w non-stress Reviewed date:11/03/2024 08:40:24 PM Interpretation: Performing Lab: Notes/Report: Source Facility: [place] [address] Ultrasound Report Signed Patient: ZULEIKA WADDELL MR#: [id number] : 1990 Acct:[id number] Age/Sex: 34 / F ADM Date: 11/03/24 Loc: US Attending Dr: Dave Ortiz D.O. Ordering Physician: Dave Ortiz D.O. Date of Service: 11/03/24 Procedure(s): US OB BPP w non-stress Accession Number(s): [id number] cc: Dave Ortiz D.O.; Gera Pulliam M.D. The [place] [address] Patient Name: ZULEIKA WADDELL MRN: [facility]:[id number] date: 1990 Sex: F Assigned Patient Location: US Current Patient Location: Accession/Order Number: [id number] Exam Date: 11/03/2024 15:29 Report Date: 11/03/2024 15:31 At the request of: DAVE ORTIZ DO Procedure: US OB BPP w non-stress Ultrasound obstetrical biophysical profile HISTORY: Levering cisterna magna. In adequate breathing movement. Adequate gross body movement, tone and amniotic fluid volume. Total score 6 out of 8. Amniotic fluid index 11.1 cm within normal limits. heart rate 148 bpm. US/US OB BPP w non-stress IMPRESSION: Suboptimal biophysical profile. Score 6 out of 8. Impression dictated by: Aaron Boyce M.D. 11/03/2024 3:31 PM Dictation Location: [place] [address] Electronically authenticated by: [id number] Y Date: 11/03/2024 15:31 Dictated By: Aaron Boyce D.O. Signed By: 11/03/24 1533 DD/ 1531 TD/TT: Ticker Wirer: [place] [address] Ultrasound Report Signed Patient: KJ WADEDLL MR#: [id number] : 1990 Acct:[id number] Age/Sex: 34 / F ADM Date: 11/03/24 Loc: Attending Dr: Dave Ortiz D.O. Ordering Physician: Dave Ortiz D.O. Date of Service: 11/03/24 Procedure(s): US OB BPP w non-stress Accession Number(s): [id number] cc: Dave Ortiz D.O. ; Gera Pulliam M.D. [address] [address] Patient Name: ZULEIKA WADDELL MRN: [id number] date: 1990 Sex: F Assigned Patient Loc ation: US Current Patient Location: Accession/Order Numb er: [id number] Exam Date: 11/03/2024 15:29 Report Date: 11/03/2024 15:31 At the request of: DAVE ORTIZ DO Procedure: US OB fet al BPP w non-stress Ultrasound obstetric al biophysical profile HISTORY: Levering ciste rna magna. In adequate br eathing [...] Boyce M.D. 11/03/2024 3:31 PM Dictation Location: [employer] Electronically authenticated by: [id number] Y Date: 11/03/2024 15:31 Dictated By: Basilio Boyce D.O. Signed By: 11/03/24 1533 DD/ 153 TD/TT: Ticker Wirer: PROF Valentine(COMP METB) Reviewed date:10/26/2024 02:03:18 PM Interpretation: Performing Lab: Notes/Report: [facility] , Sodium 134 136-145 mmol/L [...] 0.6 Performing Lab: see note ML - [facility] LB CBC AUTO DIFF Reviewed date:10/26/2024 02:03:18 PM Interpretation: Performing Lab: Notes/Report: [facility] , White Blood Count 10.2 4.0-11.0 10 [...] 0.00-0.03 10 3/uL Performing Lab: see note ML - [facility] LB Manual Differential Reviewed date:09/23/2024 01:07:05 PM Interpretation: Performing Lab: Notes/Report: [facility] , Segmented Neutrophils % Manual 93.0 43.0-75.0 [...] 3/uL Anisocytosis 1+ Performing Lab: see note - [facility] LB PROF 14(COMP METB) Reviewed date:09/23/2024 01:07:05 PM Interpretation: Performing Lab: Notes/Report: [facility] , Sodium 138 136-145 mmol/L Potassium 3.7 [...] 0.7 Performing Lab: see note ML - [facility] LB Reason For Referral No [...] 08/27/2024 Encounters Encounter Location Date Provider Diagnosis [facility] [address] [place] [address] 08/27/2024 [facility] [address] [place] [address] 08/28/2024 [facility] [address] [place] [address] 09/23/2024 [facility] [address] [place] [address] 08/27/2024 Laron Pulliam Diarrhea R19.7 Assessments Encounter [...] End Date [employer] [place] [address] [address] [place] [id number] [facility], [place] Self - patient is the insured Medical (General) History Medical History History ICD Code Asthma Depression Hypertension Surgical History Surgery Date(Month/Year) [place]- Left Open heart surgery Breast reduction 2015
--- OUTSIDE RECORDS SUMMARY | 2024-12-04 10:06 | XMS_ITS | Encounter Summary ---
Author Organization [facility] Address [address] [facility] [place] [address] Care Team Providers Care Retention Specialist Name Role Phone Yoselin Jaime FERMIN Unavailable Unallocated, Noms Provider Primary Care Provi kwabena Encounter Details Date Type Department Care Team (Late st Contact Info) Description 06/06/2023 Abstract [facility] [address] [place] [address] Destinee Vazquez LPN [address] [facility] [place] [address] Social History Tobacco Use Types Packs/Day Years [...] PM EDT Routine [facility] [address] [place] [address] Cuong Ortiz DO [address] [place] [id number] documented as of this encounter Visit Diagnoses Not on filedocumented in this encounter Care Teams Retention Specialist Relationship Specialty Start Date End Date Unallocated, Noms Provider, [address] [place], [place] [id number] PCP - General 03/04/23 Jaime Wyatt PA [address] [place], [place] [address] Referring Physician Physical Medicine and Rehabilitation 03/04/23 documented as of this encounter
--- OUTSIDE RECORDS SUMMARY | 2024-12-04 10:06 | XMS_ITS | Encounter Summary ---
Author Organization [facility] Address [address] [facility] [place] [address] Care Team Providers Care Online Advertising Director Name Role Phone Yoselin Jaime FERMIN Unavailable Unallocated, Noms Provider Primary Care Provi kwabena Encounter Details Date Type Department Care Team (Late st Contact Info) Description 11/17/2024 Abstract [facility] OB [address] [place] [address] Cuong Ortiz DO [facility] [address] [place], [place] [address] Social History Tobacco Use Types Packs/Day Years [...] [facility] [place] [address] [place] [address] Cuong Ortiz DO [address] [place] [address] [place] [address] documented as of this encounter Goals Goal Patient Goal Type Associated Problems Recent Progress Patient-Stated? Author Reminders Care Plan OB Reminders No Open Scheduling, Background documented as of this encounter Visit Diagnoses Not on filedocumented in this encounter Additional Health Concerns Active Problems Noted Date Diagnosed Date OB Reminders 06/23/2024 documented as of this encounter Care Teams Online Advertising Director Relationship Specialty Start Date End Date Unallocated, Noms Provider, [address] [place] [address] PCP - General 03/04/23 Jaime Wyatt PA [address] [place] [address] Referring Physician Physical Medicine and Rehabilitation 03/04/23 documented as of this encounter
--- OUTSIDE RECORDS SUMMARY | 2024-12-04 10:06 | XMS_ITS | Encounter Summary ---
Author Organization [facility] Address [address] [facility] [place] [address] Care Team Providers Care Coal Getter Name Role Phone Jaime Wyatt [place] Unavailable Unallocated, Noms Provider Primary Care Provi kwabena Encounter Details Date Type Department Care Team (Late st Contact Info) Description 12/19/[address] [facility] [address] [facility] [address] [place] [phone] Arden Orozco, DO [address] [facility] [address] [place] [address] Social History Tobacco Use Types [...] OB [address] [place] [address] Cuong Ortiz DO [address] [place] [address] documented as of this encounter Visit Diagnoses Not on filedocumented in this encounter Care Teams Coal Getter Relationship Specialty Start Date End Date Unallocated, Noms Provider, [place] [address] [address] PCP - General 03/04/23 Jaime Wyatt PA [address] [place] [address] Referring Physician Physical Medicine and Rehabilitation 03/04/23 documented as of this encounter
--- OUTSIDE RECORDS SUMMARY | 2024-12-04 10:06 | XMS_ITS | Encounter Summary ---
Author Organization [facility] Address [address] [place] [address] Care Team Providers Care Supervisor Fireworks Assembly Name Role Phone WyattJaime FERMIN Unavailable Unallocated, Noms Provider Primary Care Provi kwabena Encounter Details Date Type Department Care Team (Late st Contact Info) Description 09/29/2024 Orders Only [facility] OB [address] [place] [address] Destinee Vazquez LPN [address] [employer] [facility] Derek [place] [address] Social History Tobacco Use Types Packs/Day Years [...] PM EDT Routine [facility] OB [address] [place] [address] Cuong Ortiz, DO [address] [place] [address] documented as of this encounter Goals Goal Patient Goal Type Associated Problems Recent Progress Patient-Stated? Author Reminders Care Plan OB Reminders No Open Scheduling, Background documented as of this encounter Procedures Procedure Name Priority Date/Time Associated Diagnosis Comments PAP SMEAR Routine 09/10/2024 12:00 AM EDT documented in this encounter Results * Pap Smear (09/10/2024 12:00 AM EDT) Swab Cervical swab / Unknown us Diana Nurse N[facility] Bcp Ob LAB CYTOLOGY ORDERABLES Final Result EXTERNAL LAB documented in this encounter Visit Diagnoses Not on filedocumented in this encounter Additional Health Concerns Active Problems Noted Date Diagnosed Date OB Reminders 06/23/2024 documented as of this encounter Care Teams Supervisor Fireworks Assembly Relationship Specialty Start Date End Date Unallocated, Noms Provider, [address] [place] [address] PCP - General 03/04/23 Jaime Wyatt PA [address] [place], [place] [address] Referring Physician Physical Medicine and Rehabilitation 03/04/23 documented as of this encounter
--- OUTSIDE RECORDS SUMMARY | 2024-12-04 10:06 | XMS_ITS | Encounter Summary ---
Author Organization [facility] Address [address] [facility] [place] [address] Care Team Providers Care Drafter (Cad) Electronic Name Role Phone YoselinJaime FERMIN Unavailable Unallocated, Noms Provider Primary Care Provi kwabena Encounter Details Date Type Department Care Team (Late st Contact Info) Description 04/26/2023 Clinisync Result Encounter [facility] External Department Unsolicited Dave Ortiz, DO [address] [place] [address] Social History Tobacco Use Types Packs/Day Years [...] [facility] B[facility] OB [address] [place] [address] Dave Ortiz DO [address] [place] [address] documented as of this encounter Procedures Procedure Name Priority Date/Time Associated Diagnosis Comments US OB TRANSVAGINAL 04/26/2023 8: 15 PM EST documented in this encounter Results * US OB TRANSVAGINAL (04/26/2023 8:15 PM EST) Anatomical Region Laterality Modality Other 04/26/2023 8:15 PM EST Narrative 04/26/2023 8:15 PM EST [address] [address] Ultrasound Report Signed Patient: ZULEIKA WADDELL MR#: [id number] : 1990 Acct:[id number] Age/Sex: 33 / F ADM Date: 04/26/23 Loc: US Attending Dr: Dave Ortiz D.O. Ordering Physician: Dave Ortiz D.O. Date of Service: 04/26/23 Procedure(s): US OB transvaginal Accession Number(s): [id number] cc: Dave Ortiz D.O.; Physician,Non-Staff Didi The [address] [address] Patient Name: ZULEIKA WADDELL MRN: [id number] date: 1990 Sex: F Assigned Patient Location: US Current Patient Location: US Accession/Order Number: [id number] Exam Date: 04/26/2023 09:40 Report Date: 04/26/2023 [...] M.D. Signed By: 04/26/232017 DD/ 14 TD/TT: Instrumentation Controls Engineer: Procedure Note Radiology, Radiologist, MD - 04/26/2023 [place] [address] Ultrasound Report Signed Patient: ZULEIKA WADDELL LMR#: [id number] : 1990Acct:[id number] Age/Sex: 33 / FADM Date: 04/26/23 Loc: US Attending Dr: Dave Ortiz D.O. Ordering Physician: Dave Ortiz D.O. Date of Service: 04/26/23 Procedure(s): US OB transvaginal Accession Number(s): [id number] cc: Dave Ortiz D.O.; Physician,Non-Staff Didi The [place] [address] Patient Name: ZULEIKA WADDELL MRN: [id number] date: 1990 Sex: F Assigned Patient Location: US Current Patient Location: US Accession/Order Number: [id number] Exam Date: 04/26/2023 09:40 Report Date: 04/26/2023 [...] Dawn M.D. Signed By:04/26/232017 DD/ 14 TD/TT: Instrumentation Controls Engineer: us Dave Ortiz DO [facility] Final Result documented in this encounter Visit Diagnoses Not on filedocumented in this encounter Care Teams Drafter (Cad) Electronic Relationship Specialty Start Date End Date Unallocated, Noms Provider, [address] [place] [address] PCP - General 03/04/23 Jaime Waddell PA [address] [place], [place] [phone] Referring Physician Physical Medicine and Rehabilitation 03/04/23 documented as of this encounter
--- OUTSIDE RECORDS SUMMARY | 2024-12-04 10:06 | XMS_ITS | Encounter Summary ---
Author Organization [facility] Address [address] [facility] [place] [address] Care Team Providers Care Zipper Trimmer Name Role Phone Yoselin Jaime FERMIN Unavailable Unallocated, Noms Provider Primary Care Provi kwabena Encounter Details Date Type Department Care Team (Late st Contact Info) Description 10/16/2023 Clinisync Result Encounter [facility] External Department Unsolicited Dave Ortiz, [facility] [address] [place], [place] [address] Social History Tobacco Use Types Packs/Day Years [...] [facility] BCP OB [address] [place] [address] Dave Ortiz [place] [facility] [place] [address] documented as of this encounter Procedures Procedure Name Priority Date/Time Associated Diagnosis Comments US OB BPP W NON-STRESS 10/16/2023 3:05 PM EDT documented in this encounter Results * US OB BPP W NON-STRESS (10/16/2023 3:05 PM EDT) Anatomical Region Laterality Modality Other 10/16/2023 3:05 PM EDT Narrative 10/16/2023 3:08 [place] [address] Ultrasound Report Signed Patient: ZULEIKA WADDELL MR#: [id number] : 1990 Acct:[id number] Age/Sex: 33 / F ADM Date: 10/16/23 Loc: [facility] 250-[address]: Dave Ortiz D.O. Ordering Physician: Dave Ortiz D.O. Date of Service: 10/16/23 Procedure(s): US OB BPP w non-stress Accession Number(s): [id number] cc: Dave Ortiz D.O.; WaddellJaime [place] [address] Patient Name: ZULEIKA WADDELL MRN: [id number] date: 1990 Sex: F Assigned Patient Location: [facility] Current Patient Location: [facility] Accession/Order Number: [id number] Exam Date: 10/16/2023 14:10 Report Date: 10/16/2023 [...] Signed By: 10/16/23 1508 DD/ 1505 TD/TT: In Store Demonstrator: Procedure Note Radiology, Radiologist, - 10/16/2023 [place] [address] Ultrasound Report Signed Patient: ZULEIKA WADDELL LMR#: [id number] : 1990Acct:[id number] Age/Sex: 33 / FADM Date: 10/16/23 Loc: [facility] 250-[address]: Dave Ortiz D.O. Ordering Physician: Dave Ortiz D.O. Date of Service: 10/16/23 Procedure(s): US OB BPP w non-stress Accession Number(s): [id number] cc: Dave Ortiz D.O.; Jaime Waddell [place] [address] Patient Name: ZULEIKA WADDELL MRN: [id number] date: 1990 Sex: F Assigned Patient Location: [facility] Current Patient Location: [facility] Accession/Order Number: [id number] Exam Date: 10/16/2023 14:10 Report Date: 10/16/2023 [...] M.D. Signed By:10/16/23 1508 DD/ 1505 TD/TT: In Store Demonstrator: us Dave Ortiz DO [facility] Final Result documented in this encounter Visit Diagnoses Not on filedocumented in this encounter Care Teams Zipper Trimmer Relationship Specialty Start Date End Date Unallocated, Noms Provider, [address] [place], [place] [address] PCP - General 03/04/23 Jaime Waddell PA [address] [place] [address] Referring Physician Physical Medicine and Rehabilitation 03/04/23 documented as of this encounter
--- OUTSIDE RECORDS SUMMARY | 2024-12-04 10:06 | XMS_ITS | Encounter Summary ---
Author Organization [facility] Address [address] [facility] [place] [address] Care Team Providers Care Home Stereo Equipment Installer Name Role Phone Yoselin Jaime FERMIN Unavailable Unallocated, Noms Provider Primary Care Provi kwabena Encounter Details Date Type Department Care Team (Late st Contact Info) Description 10/24/2023 Clinisync Result Encounter [facility] External Department Unsolicited Dave Ortiz, [facility] [place], [place] [address] Social History Tobacco Use Types Packs/Day Years [...] [facility] BCP OB [address] [place] [address] Dave Ortiz [place] [address] documented as of this encounter Procedures Procedure Name Priority Date/Time Associated Diagnosis Comments US OB BPP W NON-STRESS 10/24/2023 7:37 AM EDT documented in this encounter Results * US OB BPP W NON-STRESS (10/24/2023 7:37 AM EDT) Anatomical Region Laterality Modality Other 10/24/2023 7:37 AM EDT Narrative 10/24/2023 7:40 [place] [address] Ultrasound Report Signed Patient: ZULEIKA WADDELL MR#: [id number] : 1990 Acct:[id number] Age/Sex: 33 / F ADM Date: 10/23/23 Loc: US Attending Dr: Dave Ortiz D.O. Ordering Physician: Dave Ortiz D.O. Date of Service: 10/23/23 Procedure(s): US OB BPP w non-stress Accession Number(s): [id number] cc: Dave Ortiz D.O.; Jaime Waddell [place] [address] Patient Name: ZULEIKA WADDELL MRN: [id number] date: 1990 Sex: F Assigned Patient Location: US Current Patient Location: Accession/Order Number: [id number] Exam Date: 10/23/2023 15:25 Report Date: 10/24/2023 07:37 At the request of: DAVE ROTIZ Procedure: US OB BPP w non-stress EXAMINATION: [...] M.D. Signed By: 10/24/23739 DD/ 6 TD/TT: Development Coordinator: Procedure Note Radiology, Radiologist, - 10/24/2023 [place] [address] Ultrasound Report Signed Patient: ZULEIKA WADDELL LMR#: [id number] : 1990Acct:[id number] Age/Sex: 33 / FADM Date: 10/23/23 Loc: US Attending Dr: Dave Ortiz D.O. Ordering Physician: Dave Ortiz D.O. Date of Service: 10/23/23 Procedure(s): US OB BPP w non-stress Accession Number(s): [id number] cc: Dave Ortiz D.O.; Jaime Waddell [place] [id number] Patient Name: ZULEIKA WADDELL MRN: [facility]:[id number] date: 1990 Sex: F Assigned Patient Location: US Current Patient Location: US Accession/Order Number: [id number] Exam Date: 10/23/2023 15:25 Report Date: 10/24/2023 [...] Dawn M.D. Signed By:10/24/2340 DD/ 6 TD/TT: Development Coordinator: us Dave Ortiz DO [facility] Final Result documented in this encounter Visit Diagnoses Not on filedocumented in this encounter Care Teams Home Stereo Equipment Installer Relationship Specialty Start Date End Date Unallocated, Noms Provider, [address] [place], [place] [address] PCP - General 03/04/23 Jaime Waddell PA [address] [place] [address] Referring Physician Physical Medicine and Rehabilitation 03/04/23 documented as of this encounter
--- OUTSIDE RECORDS SUMMARY | 2024-12-04 10:06 | XMS_ITS | Clinical Summary ---
Author Organization [facility] Address [address] [place] [address] Care Team Providers Care Tapering Machine Operator Name Role Phone Unavailable Primary Care Provider [...] Billing Address Personal/Family Self 1990 na (Home) [address] [place] [address] [place] BCBS [place]
--- OUTSIDE RECORDS SUMMARY | 2024-12-04 10:06 | XMS_ITS | Clinical Summary ---
Author Organization [facility] tem Address [facility]-[id number] [address] 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); Christiano cisterna magna (CMS-HCC) - 11/16/2024 12:43 PM EDT - 11/16/2024 11:59 PM EDT Hospital Encounter [facility] US Imaging [address] [place] [address] Supervision of high risk , antepartum Discharge Disposition: Home 11/16/2024 Travel 09/28/2024 2:00 PM EDT Office Visit Maternal- Medicine at [facility] [address] [place] [address] Trav Macdonald MD Christiano cisterna magna (CMS-HCC) - (Primary Dx); Nodular heterotopia (CMS-HCC) - ; 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 Anatomical Region Laterality Modality OB-EXTRACTOR OPERATOR HELPER Ultrasound 11/16/2024 1:48 PM EDT Narrative 11/16/2024 3:25 PM EDT NAME: YOSELIN TO : 1990 SEX: F Accession Number: [id number] ORDERING PHYSICIAN: TRAV MACDONALD REFERRING PHYSICIAN: DAVE CUELLAR Coding ----- --------- Procedures 16827: Follow-up Ultrasound, per fetus [address]: Echocardiography, , cardiovascular system, real time with [...] ----- --------- OB History 7. Para 4 [id number] Current ----- --------- Cell free DNA Low [...] EFW (oz) 14 oz EFW by: Hadlock ([id number]-FL) Extended Tibia 58.9 mm 34w 3d 81% Gurdeep Delivery Merchandiser 6.0 mm CM 14.6 mm Head / [...] Cerebellum. Face: Lips. Nose. Heart/Thorax: 4-chamber view. 3-nzbbim-ezbzapp view. Great vessels. Diaphragm. Abdomen: Stomach. Kidneys. [...] view documented previously 3-vessel view documented previously 5-yqguei-iyeqojw view normal Aortic arch view documented previously [...] Recommendations ----- --------- Please see follow up [facility] documentation from today's encounter. Results forwarded to ordering provider so they can follow up with the patient as necessary. Subsequent follow up or other follow up as clinically determined by primary OB provider unless otherwise specified by MFM. Procedure Note Trav Macdonald MD - 11/16/2024 NAME: YOSELIN TO : 1990 SEX: F Accession Number: [id number] ORDERING PHYSICIAN: TRAV MACDONALD REFERRING PHYSICIAN: DAVE CUELLAR Coding ----- --------- Procedures 20435: Follow-up Ultrasound, per fetus [address]: Echocardiography, , cardiovascular system, real timewith image documentation (2D), with or without M-mode recording; follow-up or repeat study Indication ----- --------- Screening for follow-up survey, Chronic hypertension affecting ,History of prior with delivery, Supervision of high risk - MOB alcohol syndrome, T13 inprev , MOB club foot, christiano cisterna magna, 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 Para 4 [id number] Current ----- --------- Cell free DNA Low [...] EFW (oz) 14 oz EFW by: Hadlock ([id number]-SO-AY-FL) Extended Tibia 58.9 mm 34w 3d 81% Gurdeep Delivery Merchandiser 6.0 mm CM 14.6 mm Head / [...] Cerebellum. Face: Lips. Nose. Heart/Thorax: 4-chamber view. 4-yxpcoq-hbwjkau view. Great vessels. Diaphragm. Abdomen: Stomach. Kidneys. [...] view documented previously 3-vessel view documented previously 9-rsowtx-mmufioa view normal Aortic arch view documented previously [...] specified by MFM. us Trav Macdonald MD [facility] ORDERABLES Final Resul t from Last 3 Months Insurance * Guarantor: Nadine Wyatt Account Type Relation to Patient Date of Phone Billing Address Personal/Family Self 1990 [address] [place] [address] [employer] Care Teams Otter Trawler Boatswain Relationship Specialty Start Date End Date Jaime Wyatt PA-C [address] [place], [place] [phone] PCP - General Physician Tomography Technologist 03/18/18
--- OUTSIDE RECORDS SUMMARY | 2024-12-04 10:06 | XMS_ITS | Encounter Summary ---
Author Organization [facility] tem Address [facility]-[id number] [address] 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
--- OUTSIDE RECORDS SUMMARY | 2024-12-04 10:06 | XMS_ITS | Encounter Summary ---
Author Organization [facility] tem Address [id number] [address] [place] [address] Care Team Providers Care Dimension Mill Worker Name Role Phone Jaime Wyatt PA-C Primary Care Provider [phone] Encounter Details Date Type Department Care Team (Late st Contact Info) Description 03/26/2022 Telephone Maternal- Medicine at [facility] [address] [place] [phone] Tamika Branch LPN Social History Tobacco Use [...] on filedocumented in this encounter Care Teams Dimension Mill Worker Relationship Specialty Start Date End Date Jaime Wyatt, SADAF [address] [place], [place] [address] PCP - General Physician Laminating Machine Offbearer 03/18/18 documented as of this encounter
--- OUTSIDE RECORDS SUMMARY | 2024-12-04 10:06 | XMS_ITS | Encounter Summary ---
Author Organization [facility] tem Address [facility]-K80564 [address] 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 Procedures US [facility] with or without consult Dave Ortiz DO Phone: tel: fax: Maternal- Medicine at [address] [address] Phone: tel: fax: Referral ID Status Reason Start Date Expiration Date V isits Requested Visits Authorized [id number] Pending Review 08/27/2024 08/27/2025 1 1 Encounter Details Date Type Department Care Team (Late st Contact Info) Description 08/27/2024 Orders Only Maternal- Medicine at [address] [address] Beronica Minaya CMA History of [...] 2:35 PM EDT) Anatomical Region Laterality Modality OB-SHAPING MACHINE OPERATOR Ultrasound 08/27/2024 1:30 PM EDT Narrative 08/27/2024 5:23 PM EDT NAME: BAIRON TO : 1990 SEX: F Accession Number: [id number] ORDERING PHYSICIAN: DAVE ORTIZ REFERRING PHYSICIAN: DAVE ORTIZ Coding ----- --------- Procedures 31145: Ultrasound, uterus, real time with image documentation, and maternal evaluation plus detailed anatomic examination, transabdominal approach;single or first gestation 67290: Transvaginal Ultrasound (OB) Indication ----- --------- Screening for Anatomic Survey , Screening for cervical length , Chronic hypertension affecting , History of prior with delivery, Supervision of high risk - MOB alcohol syndrome, 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 Para 4 [id number] Current ----- --------- Cell free DNA Low [...] 1 lb 0 oz EFW by Hadlock ([id number]-[id number]-FL) Head / Face / Neck Biometry: Cephalic index 0.70 <1% Nicolaides Home Visit Field Care Manager 6.1 mm CM 9.9 mm >99% Nicolaides [...] Head / Neck Neck. Heart / Thorax 9-jnqdnm-hyxoczb view. Extremities / Right hand. Skeleton Maternal [...] TO : 1990 SEX: F Accession Number: [id number] ORDERING PHYSICIAN: DAVE ORTIZ REFERRING PHYSICIAN: DAVE ORTIZ Coding ----- --------- Procedures 76681: Ultrasound, uterus, real time with imagedocumentation, and maternal evaluation plus detailed anatomic examination, transabdominalapproach;single or first gestation 20399: Transvaginal Ultrasound (OB) Indication ----- --------- Screening for Anatomic Survey , Screening for cervical length , Chronichypertension affecting , History of prior with delivery, Supervision of high risk - MOBfetal alcohol syndrome, 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 Para 4 [id number] Current ----- --------- Cell free DNA Low [...] 1 lb 0 oz EFW by Hadlock ([id number]-[id number]-FL) Head / Face / Neck Biometry: Cephalic index 0.70 <1% Nicolaides Home Visit Field Care Manager 6.1 mm CM 9.9 mm >99% Nicolaides [...] Head / Neck Neck. Heart / Thorax 7-wfklgo-zlobqnd view. Extremities / Right hand. Skeleton Maternal [...] 1.01 cm. Recommendations ----- --------- Please see [facility] documentation from today. The patient is scheduled in four to six week(s) to complete anatomicsurvey. Subsequent follow up or other follow up as clinically determined byprimary OB provider unless otherwise specified by [facility]. Results forwarded to ordering [...] documented as of this encounter Care Teams Renovator Machine Operator Relationship Specialty Start Date End Date Jaime Wyatt, SADAF [address] [place], [place] [address] PCP - General Physician Manager Bar 03/18/18 documented as of this encounter
--- OUTSIDE RECORDS SUMMARY | 2024-12-04 10:06 | XMS_ITS ---
Author Organization [facility] Address [address] [place] [address] Care Team Providers Care Dev Manager Name Role Phone Jaime Wyatt Unavailable Unallocated, Noms Provider Primary Care Provi kwabena [facility] ([facility]) Status:Enrolled (Active) Start date:08/11/2024 Enrollment date:08/12/2024 Enrollment reason:Identified by Health Plan Case Team Name Relationship Phone Elena Felix LPN(Responsible Staff) Licensed Prac tical Nurse [phone] Continued Care and Services Coordination
--- OUTSIDE RECORDS SUMMARY | 2024-12-04 10:06 | XMS_ITS | Clinical Summary ---
Author Organization [facility] Address [address] [place] [address] Care Team Providers Care Packing Tractor Machine Operator Name Role Phone Jaime Wyatt FERMIN Unavailable [...] Plus Multivitamin) 27-1 MG tabletIndication s:First trimester ([facility]) Take 1 tablet by mouth Daily 30 tablet 11 04/29/2024 Active EPINEPHrine (Epipen) 0.3 MG/0.3ML injection syringe 08/29/2024 Active Flonase Allergy Relief 50 MCG/ACT nasal spray 1 (one) time each day at the same time 06/04/2024 Active loratadine (Claritin) 10 MG tablet 1 (one) time each day at the same time 06/04/2024 Active Active Problems Problem Noted Date Diagnosed Date Third trimester ([facility]) 11/23/2024 34 weeks gestation of ([facility]) 2024 Family history of trisomy 13 09/30/2023 Estimated Date of Delivery Comme nts Yes 12/29/2024 Based on last me nstrual period of 03/24/2024 Encounters Date Type Department Care Team Description 12/01/2024 Clinisync Result Encounter NOMS External Department Unsolicited Dave Ortiz, DO 12/01/2024 Clinisync Result Encounter NOMS External Department Unsolicited Dave Ortiz, DO 11/30/2024 1:10 PM EDT Routine [facility] [place] [address] [place] [address] Dave Ortiz, DO Third trimester ([facility]); 35 weeks gestation of ([facility]) 11/30/2024 Bamboo flowsheet [facility] [address] [place] [address] Dave Ortiz, DO 11/24/2024 Clinisync Result Encounter NOMS External Department Unsolicited Dave Ortiz, DO 11/23/2024 2:20 PM EDT Routine [facility] [place] [address] [place] [address] Dave Ortiz, DO Third trimester ([facility]); 34 weeks gestation of ([facility]) 11/23/2024 Bamboo flowsheet [facility] [place] [address] [place] [address] Dave Ortiz, DO 11/17/2024 Clinisync Result Encounter NOMS External Department Unsolicited Dave Ortiz, DO 11/17/2024 Abstract [facility] [place] [address] [place] [address] Dave Ortiz, DO 11/16/2024 Abstract [facility] [address] [place] [phone] Dave Ortiz, DO 11/12/2024 Patient Outreach [facility] [phone] Elena Felix LPN 11/10/2024 11:00 AM EDT Routine [facility] [address] [place] [place] [address] Dave Ortiz, DO 33 weeks gestation of ([facility]); Third trimester ([facility]) 11/10/2024 Clinisync Result Encounter NOMS External Department Unsolicited Dave Ortiz, DO 11/10/2024 Bamboo flowsheet [facility] [place] [address] [place] [phone] Dave Ortiz, DO 11/06/2024 Clinisync Result Encounter NOMS External Department Unsolicited Dave Ortiz, DO 11/03/2024 Clinisync Result Encounter NOMS External Department Unsolicited Dave Ortiz, DO 11/03/2024 Clinisync Result Encounter NOMS External Department Unsolicited Dave Ortiz, DO 10/26/2024 11:20 AM EDT Routine [facility] OB [address] [place], [place] [address] [address] Dave Ortiz, DO 30 weeks gestation of ([facility]); Third trimester ([facility]); Nadia cisterna magna ([facility]); 28 weeks gestation of ([facility]); SGA (small for gestational age) ([facility]) 10/26/2024 Clinisync Result Encounter NOMS External Department Unsolicited Dave Ortiz, DO 10/26/2024 Bamboo flowsheet [facility] OB [facility] [place] [address] Dave Ortiz, DO 10/20/2024 Telephone [facility] [address] [place] [address] Dave Ortiz, DO 10/19/2024 11:30 AM EDT Ancillary Procedure [facility] [address] [place] [address] Nadia cisterna magna (HCC) 10/18/2024 Travel 10/12/2024 9:20 AM EDT Routine [facility] [address] [place] [address] Dave Ortiz, DO Third trimester ([facility]); 28 weeks gestation of ([facility]); Nadia cisterna magna (HCC) 10/12/2024 Patient Outreach [facility] [address] [place] [address] Elena Felix LPN 10/12/2024 Bamboo flowsheet [facility] [address] [place] [address] Dave Ortiz, DO 09/29/2024 Orders Only [facility] OB [address] [place] [address] [place] [address] Destinee Vazquez, PAYROLL SERVICES ANALYST 09/29/2024 Abstract [facility] [address] [place] [address] Dave Ortiz, DO 09/10/2024 11:10 AM EDT Routine [facility] [address] [place] [address] Dave Ortiz, DO Well woman exam with routine gynecological exam; STD exposure; Vaginal discharge; Second trimester ([facility]); 24 weeks gestation of ([facility]) 09/10/2024 Clinisync Result Encounter NOMS External Department Unsolicited Dave Ortiz, DO 09/10/2024 External Result Encounter NOMS External Department Unsolicited Dave Ortiz, DO 09/10/2024 Bamboo flowsheet [facility] [address] [place] [address] Dave Ortiz, DO 09/08/2024 Patient Outreach [facility] [address] [place] [address] FelixElena terrellLISHA 09/07/2024 Abstract [facility] OB [address] [place] [address] [place] [address] Dave Ortiz DO 09/07/2024 Clinisync Result Encounter NOMS External Department Unsolicited Dave Ortiz DO 09/07/20[address] [facility] [address] [place] [address] Dave Ortiz DO from Last 3 [...] Description 12/07/2024 1:00 PM EDT Routine [facility] [address] [place] [address] Dave Ortiz, [address] [place] [address] Dr [place], [place] [phone] Health Maintenance Due Date Last Done Comments Influenza Vaccine (Season Ended) 2025 05/19/20 13, 04/29/2012 Pap Smear 09/11/2027 09/10/2024, 10/24/2022 Cervical Cancer Screening 10/25/2027 HPV/Cotest 10/25/2027 Goals Goal Patient Goal Type Associated Problems Recent Progress Patient-Stated? Author Reminders Care Plan OB Reminders No Open Scheduling, Background Procedures Procedure Name Priority Date/Time Associated Diagnosis Comments US OB GROWTH 12/01/2024 11:12 AM EDT US OB BPP W NON-STRESS 12/01/2024 11:12 AM EDT POCT URINALYSIS DIPSTICK Routine 11/30/2024 2:02 PM EDT Third trimester ([facility]) US OB BPP W NON-STRESS 11/24/2024 9:42 AM EDT POCT URINALYSIS DIPSTICK Routine 11/23/2024 2:58 PM EDT Third trimester ([facility]) US OB BPP W NON-STRESS 11/17/2024 10:17 AM EDT POCT URINALYSIS DIPSTICK Routine 11/10/2024 10:32 AM EDT 33 weeks gestation of ([facility]) Third trimester ([facility]) US OB BPP W NON-STRESS 11/10/2024 10:08 AM EDT US OB BPP W NON-STRESS 11/06/2024 2:00 PM EDT US OB GROWTH 11/03/2024 4:34 PM EDT US OB BPP W NON-STRESS 11/03/2024 3:31 PM EDT ALL CBC WITH AUTO DIFF Routine 12:52 PM EDT [facility] CMP (CMP) (FOR REMOTE [facility] USE) Routine 10/26/2024 12:52 PM EDT [...] 3 Months Results * US OB GROWTH (12/01/2024 11:12 AM EDT) Only the most recent of2 resultswithin the time period is included. Anatomical Region Laterality Modality Other 12/01/2024 11:1 2 AM EDT Narrative 12/01/2024 11:15 AM EDT The [address] [address] Ultrasound Report Signed Patient: ZULEIKA WYATT MR#: [id number] : 1990 Acct:[id number] Age/Sex: 34 / F ADM Date: 12/01/24 Loc: US Attending Dr: Dave Ortiz D.O. Ordering Physician: Dave Ortiz D.O. Date of Service: 12/01/24 Procedure(s): US OB growth Accession Number(s): [id number] cc: Dave Ortiz D.O.; Ramon Avila M.D. [place] [id number] Patient Name: ZULEIKA WYATT MRN: [facility]:[id number] date: 1990 Sex: F Assigned Patient Location: [facility] Current Patient Location: Accession/Order Number: [id number] Exam Date: 12/01/2024 11:04 Report Date: 12/01/2024 [...] IMPRESSION: NORMAL BIOPHYSICAL PROFILE Impression dictated by: dAela Mahan M.D. 12/01/2024 11:12 AM Dictation Location: [place] [address] Electronically authenticated by: [id number] Y Date: 12/01/2024 11:12 Dictated By: Adela Mahan M.D. Signed By: 12/01/24 1115 DD/ 1112 TD/TT: Forestry Contractor: Procedure Note Radiology, Radiologist, MD - 12/01/2024 [place] [address] Ultrasound Report Signed Patient: ZULEIKA WYATT LMR#: [id number] : 1990Acct:[id number] Age/Sex: 34 / FADM Date: 12/01/24 Loc: US Attending Dr: Dave Ortiz D.O. Ordering Physician: Dave Ortiz D.O. Date of Service: 12/01/24 Procedure(s): US OB growth Accession Number(s): [id number] cc: Dave Ortiz D.O.; Ramon Avila M.D. The [place] [phone] Patient Name: ZULEIKA WYATT MRN: [facility]:[id number] date: 1990 Sex: F Assigned Patient Location: [facility] Current Patient Location: Accession/Order Number: [id number] Exam Date: 12/01/2024 11:04 Report Date: 12/01/2024 [...] Mahan M.D. 12/01/2024 11:12 AM Dictation Location: [place] [address] Electronically authenticated by: [id number] Y Date: 511:12 Dictated By: Adela Mahan M.D. Signed By:12/01/24 1115 DD/ 1112 TD/TT: Forestry Contractor: us Dave Diana DO [facility] IMAGING Final Result * US OB BPP W NON-STRESS (12/01/2024 11:12 AM EDT) Only the most recent of6 resultswithin the time period is included. Anatomical Region Laterality Modality Other 12/01/2024 11:1 2 AM EDT Narrative 12/01/2024 11:15 AM EDT The [address] [address] Ultrasound Report Signed Patient: ZULEIKA WYATT MR#: [id number] : 1990 Acct:[id number] Age/Sex: 34 / F ADM Date: 12/01/24 Loc: US Attending Dr: Dave Ortiz D.O. Ordering Physician: Dave Ortiz D.O. Date of Service: 12/01/24 Procedure(s): US OB BPP w non-stress Accession Number(s): [id number] cc: Dave Ortiz D.O.; Ramon Avila M.D. [place] [address] Patient Name: ZULEIKA WYATT MRN: [facility]:[id number] date: 1990 Sex: F Assigned Patient Location: US Current Patient Location: Accession/Order Number: [id number] Exam Date: 12/01/2024 11:04 Report Date: 12/01/2024 [...] Mahan M.D. 12/01/2024 11:12 AM Dictation Location: [place] [address] Electronically authenticated by: [id number] Y Date: 12/01/2024 11:12 Dictated By: Adela Mahan M.D. Signed By: 12/01/24 1115 DD/ 111 TD/TT: Forestry Contractor: Procedure Note Radiology, Radiologist, MD - 12/01/2024 [place] [address] Ultrasound Report Signed Patient: ZULEIKA WYATT LMR#: [id number] : 1990Acct:[id number] Age/Sex: 34 / FADM Date: 12/01/24 Loc: US Attending Dr: Dave Ortiz D.O. Ordering Physician: Dave Ortiz D.O. Date of Service: 12/01/24 Procedure(s): US OB BPP w non-stress Accession Number(s): [id number] cc: Dave Ortiz D.O.; Ramon Avila M.D. The [place] [id number] Patient Name: ZULEIKA WYATT MRN: [id number] date: 1990 Sex: F Assigned Patient Location: US Current Patient Location: Accession/Order Number: [id number] Exam Date: 12/01/2024 11:04 Report Date: 12/01/2024 [...] Mahan M.D. 12/01/2024 11:12 AM Dictation Location: [place] [address] Electronically authenticated by: [id number] Y Date: 1:12 Dictated By: Adela Mahan M.D. Signed By:12/01/24 1115 DD/ 1112 TD/TT: Forestry Contractor: us Dave Diana DO [facility] IMAGING Final [...] - Positive Urine 11/30/2024 2:02 PM EDT Dave Ortiz DO POINT OF CARE TEST ENTER/EDIT OR DERABLES Final Result * (ABNORMAL) [facility] CMP (CMP) (FOR REMOTE [facility] USE) (10/26/2024 12:52 PM EDT) SODIUM [...] 0.55 - 1.02 mg/dL TBH TBH EGFR-AF STATELESS >60 >=60 mL/min/1. 73m 2 TBH TBH EGFR-NON AF STATELESS >60 >=60 mL/min/1. 73m 2 TBH BUN [...] us Dave Diana DO [facility] Final Result [facility] * (ABNORMAL) ALL CBC WITH AUTO DIFF [...] us Dave Diana DO [facility] Final Result [facility] * US OB follow up transabdominal approach [...] II, MD, PHD at 21-Oct-2024 08:41:57 AM [facility] Procedure Note Eloisa Gonzalez MD - [...] signed by ELOISA GONZALEZ II, MD, PHD [id number] 08:41:57 AM [facility] us Dave Ortiz DO IM OB US PROCEDURES Final Resul t * RECURRENT VAGINITIS (HTRX) (09/10/2024 12:23 PM EDT) [facility] ATOPOBIUM VAGINAE 0.000 19.961 - 24.689 ppm 09/11/2024 6:30 AM EDT [facility] ATOPOBIUM VAGINAE Not Detected 19.961 - 24.689 ppm 09/11/2024 6:30 AM EDT [facility] BVAB 2,3 (BACTERIAL VAGINOSIS ASSOCIATED BACTERIA 2, 3); MOBILUNCUS SPP 0.000 19.961 - 24.689 ppm 09/11/2024 6:30 AM EDT [facility] BVAB 2,3 (BACTERIAL VAGINOSIS ASSOCIATED BACTERIA 2, 3); MOBILUNCUS SPP Not Detected 19.961 - 24.689 ppm 09/11/2024 6:30 AM EDT [facility] JEREMY ALBICANS, PARAPSILOSIS, TROPICALIS 0.000 19.961 - 30.770 ppm 09/11/2024 6:30 AM EDT [facility] JEREMY ALBICANS, PARAPSILOSIS, TROPICALIS Not Detected 19.961 - 30.770 ppm 09/11/2024 6:30 AM EDT [facility] JEREMY GLABRATA 0.000 23.000 - 32.138 ppm 09/11/2024 6:30 AM EDT [facility] JEREMY GLABRATA Not Detected 23.000 - 32.138 ppm 09/11/2024 6:30 AM EDT [facility] JEREMY KRUSEI 0.000 23.000 - 32.271 ppm 09/11/2024 6:30 AM EDT [facility] JEREMY KRUSEI Not Detected 23.000 - 32.271 ppm 09/11/2024 6:30 AM EDT [facility] CHLAMYDIA TRACHOMATIS 0.000 23.000 - 31.467 ppm 09/11/2024 6:30 AM EDT [facility] CHLAMYDIA TRACHOMATIS Not Detected 23.000 - 31.467 ppm 09/11/2024 6:30 AM EDT [facility] GARDNERELLA VAGINALIS 0.000 19.961 - 24.689 ppm 09/11/2024 6:30 AM EDT [facility] GARDNERELLA VAGINALIS Not Detected 19.961 - 24.689 ppm 09/11/2024 6:30 AM EDT [facility] MEGASPHAERA (TYPES 1, 2) 0.000 19.961 - 24.689 ppm 09/11/2024 6:30 AM EDT [facility] MEGASPHAERA (TYPES 1, 2) Not Detected 19.961 - 24.689 ppm 09/11/2024 6:30 AM EDT [facility] NEISSERIA GONORRHOEAE 0.000 23.000 - 32.117 ppm 09/11/2024 6:30 AM EDT [facility] NEISSERIA GONORRHOEAE Not Detected 23.000 - 32.117 ppm 09/11/2024 6:30 AM EDT [facility] TRICHOMONAS VAGINALIS 0.000 23.000 - 32.119 ppm 09/11/2024 6:30 AM EDT [facility] TRICHOMONAS VAGINALIS Not Detected 23.000 - 32.119 ppm 09/11/2024 6:30 AM EDT [facility] MYCOPLASMA GENITALIUM 0.000 19.961 - 24.689 ppm 09/11/2024 6:30 AM EDT [facility] MYCOPLASMA GENITALIUM Not Detected 19.961 - 24.689 ppm 09/11/2024 6:30 AM EDT [facility] Tissue 09/10/2024 12:2 3 PM EDT 09/11/2024 1:40 AM EDT us Dave Ortiz DO LAB BLOOD ORDERABLES Final Resul t [facility] [address] [facility] [place] [address] * IGP,APTIMA HPV,AGE GDLN (09/10/2024 11:42 AM EDT) AGE GDLN ACOG TESTING Note . [facility] Comment: TESTS RESULT FLAG UNITS REF RANGE LAB Clinician Provided Cytology Information Source.............[facility] Other.............. No. of containers..01 ThinPrep Vial Age Algo ACOG Krista... 30 01 FLAG LEGEND: L-Low Normal,H-High Normal,LL-Alert Low,HH-Alert High <-Panic Low,>-Panic High,A-Abnormal,AA-Critical Abnormal Performed at: 01 =[address] [facility] [address] Joann Denney MD, IGP, APTIMA HPV, RFX 16/18,45 Note . [facility] Comment: TESTS RESULT FLAG UNITS REF RANGE LAB DIAGNOSIS: 02 NEGATIVE FOR INTRAEPITHELIAL LESION OR MALIGNANCY. Specimen adequacy: 02 Satisfactory for evaluation. No endocervical component is identified. An endocervical component is not commonly seen in the patient. Performed by: 02 Mindy Martel International Relations Teacher (ASCP) . 02 Note: Note 02 The [...] <-Panic Low,>-Panic High,A-Abnormal,AA-Critical Abnormal Performed at: [address] [address] Joann Denney MD, HPV APTIMA Negative Negative [facility] Comment: This nucleic acid amplification test detects fourteen high- risk HPV types (16,18,31,33,35,39,45,51,52,56,58,59,66,68) without differentiation. Performed at: = - [address] [id number] Bakery Technician: Joann Denney MD, Phone: [phone] Performed at: [address] [id number] Bakery Technician: Joann Denney MD, Phone: [phone] 09/10/2024 11:4 2 AM EDT 09/10/2024 3:18 PM EDT Narrative [facility] - 09/14/2024 12:08 PM EDT [facility] us Dave Diana DO LAB BLOOD ORDERABLES Final Resul t [facility] TB * Pap Smear (09/10/2024 12:00 AM EDT) Swab Cervical swab / Unknown Diana Nurse [facility] Bcp Ob LAB CYTOLOGY ORDERABLES Final Result EXTERNAL LAB * GLUCOSE 1 HOUR (09/07/2024 11:45 AM EDT) GLUCOSE 1 HOUR 102 <130 mg/dL [facility] 09/07/2024 11:4 5 AM EDT 09/07/2024 11:55 AM EDT Narrative [facility] - 09/07/2024 12:52 PM EDT Dave Diana DO LAB BLOOD ORDERABLES Final Resul t [facility] TB from Last 3 Months Additional Health Concerns Active Problems Noted Date Diagnosed Date OB Reminders 06/23/2024 Insurance * Guarantor: Zuleika Wyatt Account Type Relation to Patient Date of Phone Billing Address Personal/Family Self 1990 [address] [place] [address] [employer] [place]ICA[place] Care Teams Packing Tractor Machine Operator Relationship Specialty Start Date End Date Unallocated, Juan Antonio Randall MD [address] [place] [address] PCP - General 03/04/23 Jaime Wyatt PA [address] [place] [address] Referring Physician Physical Medicine and Rehabilitation 03/04/23
--- OUTSIDE RECORDS SUMMARY | 2024-12-04 10:06 | XMS_ITS | Encounter Summary ---
Author Organization [facility] Address [address] [place] [address] Care Team Providers Care Straw Hat Presser Name Role Phone Yoselin Jaime FERMIN Unavailable Unallocated, Noms Provider Primary Care Provi kwabena Encounter Details Date Type Department Care Team (Late st Contact Info) Description 10/21/2023 Clinisync Result Encounter NOMS External Department Unsolicited Dave Ortiz, [facility] [place], [place] [address] Social History Tobacco Use Types Packs/Day Years [...] [facility] BCP OB [address] [place] [phone] Dave Ortiz [place] [address] documented as of this encounter Procedures Procedure Name Priority Date/Time Associated Diagnosis Comments US OB BPP W NON-STRESS 10/21/2023 7:34 AM EDT documented in this encounter Results * US OB BPP W NON-STRESS (10/21/2023 7:34 AM EDT) Anatomical Region Laterality Modality Other 10/21/2023 7:34 AM EDT Narrative 10/21/2023 7:37 [place] [address] Ultrasound Report Signed Patient: ZULEIKA WADDELL MR#: [id number] : 1990 Acct:[id number] Age/Sex: 33 / F ADM Date: 10/19/23 Loc: FBMA Attending Dr: Dave Ortiz D.O. Ordering Physician: Dave Ortiz D.O. Date of Service: 10/19/23 Procedure(s): US OB BPP w non-stress Accession Number(s): [id number] cc: Dave Ortiz D.O.; Jaime Waddell [place] [address] Patient Name: ZULEIKA WADDELL MRN: [id number] date: 1990 Sex: F [place]igned [facility] [facility] Current Patient Location: [facility] Accession/Order Number: [id number] Exam Date: 10/19/2023 14:53 Report Date: 10/21/2023 [...] M.D. Signed By: 0537 DD/ 3 TD/TT: Visual Lead: Procedure Note Radiology, Radiologist, - 10/21/2023 The [place] [id number] Ultrasound Report Signed Patient: ZULEIKA WADDELL LMR#: [id number] : 1990Acct:[id number] Age/Sex: 33 / FADM Date: 10/19/23 Loc: FBCO Attending Dr: Dave Ortiz D.O. Ordering Physician: Dave Ortiz D.O. Date of Service: 10/19/23 Procedure(s): US OB BPP w non-stress Accession Number(s): [id number] cc: Dave Ortiz D.O.; Jaime Waddell [place] [phone] Patient Name: ZULEIKA WADDELL MRN: [facility]:[id number] date: 1990 Sex: F Assigned Patient [facility] Current Patient Location[place] [facility] Accession/Order Number: [id number] Exam Date: 10/19/2023 14:53 Report Date: 10/21/2023 [...] M.D. Signed By:10/21/23 0737 DD/ 3 TD/TT: Visual Lead: us Dave Ortiz DO [facility] IM[facility] Final Result documented in this encounter Visit Diagnoses Not on filedocumented in this encounter Care Teams Straw Hat Presser Relationship Specialty Start Date End Date Unallocated, Noms Provider, [address] [place] [address] PCP - General 03/04/23 Jaime Waddell PA [address] [place], [place] [phone] Referring Physician Physical Medicine and Rehabilitation 03/04/23 documented as of this encounter
--- OUTSIDE RECORDS SUMMARY | 2024-12-04 10:06 | XMS_ITS | Encounter Summary ---
Author Organization [facility] Address [address] [place] [address] Care Team Providers Care Package Liner Name Role Phone Unavailable Primary Care Provider Unavailabl e Source Comments In the event this information is protected by the Federal Confidentiality of Alcohol and Drug AbusePatient Records regulations: The Federal rules restrict any use of the information to criminally investigate or prosecute any alcohol or drug abuse patient.[facility] Encounter Details Date Type Department Care Team (Late st Contact Info) Description 02/10/2022 Lab Requisition [facility] [address] [place] [address] Eleazar Hess PA-C [address] [facility] [place] [phone] Social History Tobacco Use Types Packs/Day Years [...] Report SEE NOTE 02/22/2022 1:25 PM EDT [facility] [employer] Comment: Finegoldia magna Organism identified by client [...] caution. REKHA M Beta-Lactamase Neg Performed by [employer], [address] [place] [address] www.[employer], Piero Beaver MD, PHD, Lab. Director Micro Specimen SPECIMEN FROM ABSCESS / Unknown 02/05/2022 8:00 PM EDT 02/10/2022 3:57 PM EDT Eleazar Hess PA-C LABORATORY Final Result [facility] [address] [place] [address] * (ABNORMAL) ORGANISM TARYN (02/05/2022 8:00 PM EDT) Culture, Organism TARYN Result Finegoldia magna(A) MINIMUM INHIBITORY CONCENTRATION ([place]) 02/24/2022 2:08 PM EDT [facility] Micro Specimen SPECIMEN FROM ABSCESS / Unknown 02/05/2022 8:00 PM EDT 02/10/2022 3:57 PM EDT Narrative [facility] - 02/24/2022 2:08 PM EDT Susceptibility results have been completed by [facility]. us Eleazar Hess PA-C LABORATORY Final Result Performing Organization Address City/[facility]/ZIP Co de Phone Number [facility] [address] [address], [place] * (ABNORMAL) ORGANISM ID ANAEROBE (02/05/2022 8:00 PM EDT) Culture, Organism ID Anaerobe Finegoldia magna(A) 02/16/2022 3:33 PM EDT [facility] Micro Specimen SPECIMEN FROM ABSCESS / Unknown 02/05/2022 8:00 PM EDT 02/10/2022 3:57 PM EDT us Eleazar Hess PA-C LABORATORY Final Result Performing Organization Address [facility]/ZIP Co de Phone Number [facility] [address] [address], [place] documented in this encounter Visit Diagnoses Not on filedocumented in this encounter
--- OUTSIDE RECORDS SUMMARY | 2024-12-04 10:06 | XMS_ITS | Encounter Summary ---
Author Organization [facility] Address [address] [place] [address] Care Team Providers Care Lending Consultant Name Role Phone YoselinJaime FERMIN Unavailable Unallocated, Noms Provider Primary Care Provi kwabena Encounter Details Date Type Department Care Team (Late st Contact Info) Description 11/24/2024 Clinisync Result Encounter [facility] External Department Unsolicited Dave Ortiz, DO [address] [place] [address] Social History Tobacco Use Types Packs/Day Years [...] Description 12/07/2024 1:00 PM EDT Routine [facility] OB [address] [place] [address] Dave Ortiz, DO [address] [place] [address] [phone] (work) documented as of this encounter Goals [...] AM EDT Narrative 11/24/2024 9:45 [place] [address] Ultrasound Report Signed Patient: ZULEIKA WADDELL MR#: [id number] : 1990 Acct:[id number] Age/Sex: 34 / F ADM Date: 11/24/24 Loc: [facility] 250-[address]: Dave Ortiz D.O. Ordering Physician: Dave Ortiz D.O. Date of Service: 11/24/24 Procedure(s): US OB BPP w non-stress Accession Number(s): [id number] cc: Dave Ortiz D.O.; Ramon Avila M.D. [address] [address] Patient Name: ZULEIKA WADDELL MRN: [facility]:[id number] date: 1990 Sex: F Assigned Patient Location: [facility] Current Patient Location: [facility] Accession/Order Number: [id number] Exam Date: 11/24/2024 09:41 Report Date: 11/24/2024 [...] Mahan M.D. 11/24/2024 9:42 AM Dictation Location: [place] [address] Electronically authenticated by: [id number] Y Date: 11/24/2024 09:42 Dictated By: Adela Mahan M.D. Signed By: 11/24/24944 DD/ 1 TD/TT: Foreclosure Field Inspector: Procedure Note Radiology, Radiologist, MD - 11/24/2024 [place] [address] Ultrasound Report Signed Patient: ZULEIKA WADDELL LMR#: [id number] : 1990Acct:[id number] Age/Sex: 34 / FADM Date: 11/24/24 Loc: [facility] 250-[address]: Dave Ortiz D.O. Ordering Physician: Dave Ortiz D.O. Date of Service: 11/24/24 Procedure(s): US OB BPP w non-stress Accession Number(s): [id number] cc: Dave Ortiz D.O.; Ramon Avila M.D. The [place] [id number] Patient Name: ZULEIKA WADDELL MRN: [id number] date: 1990 Sex: F Assigned Patient Location: [facility] Current Patient Location: [facility] Accession/Order Number: [id number] Exam Date: 11/24/2024 09:41 Report Date: 11/24/2024 [...] Mahan M.D. 11/24/2024 9:42 AM Dictation Location: [place] [address] Electronically authenticated by: [id number] Y Date: 509:42 Dictated By: Adela Mahan M.D. Signed By:11/24/2445 DD/ TD/TT: Foreclosure Field Inspector: Dave Ortiz DO [facility] Final Result documented in this encounter Visit Diagnoses Not on filedocumented in this encounter Additional Health Concerns Active Problems Noted Date Diagnosed Date OB Reminders 06/23/2024 documented as of this encounter Care Teams Lending Consultant Relationship Specialty Start Date End Date Unallocated, Noms Provider, [address] [place] [address] PCP - General 03/04/23 Jaime Waddell PA [address] [place] [address] Referring Physician Physical Medicine and Rehabilitation 03/04/23 documented as of this encounter
--- OUTSIDE RECORDS SUMMARY | 2024-12-04 10:06 | XMS_ITS | Encounter Summary ---
Author Organization [facility] Address [address] [place] [address] Care Team Providers Care Brazer Crawler Torch Name Role Phone Yoselin Jaime FERMIN Unavailable Unallocated, Noms Provider Primary Care Provi kwabena Encounter Details Date Type Department Care Team (Late st Contact Info) Description 10/30/2023 Clinisync Result Encounter [facility] External Department Unsolicited Dave Ortiz, DO [facility] [address], [place] [address] Social History Tobacco Use Types Packs/Day Years [...] [facility] BCP OB [address] [place] [id number] Dave Ortiz [place] [facility] [place] [address] documented as of this encounter Procedures Procedure Name Priority Date/Time Associated Diagnosis Comments US OB BPP W NON-STRESS 10/30/2023 3:23 PM EDT documented in this encounter Results * US OB BPP W NON-STRESS (10/30/2023 3:23 PM EDT) Anatomical Region Laterality Modality Other 10/30/2023 3:23 PM EDT Narrative 10/30/2023 3:25 [place] [address] Ultrasound Report Signed Patient: ZULEIKA WADDELL MR#: [id number] : 1990 Acct:[id number] Age/Sex: 33 / F ADM Date: 10/30/23 Loc: US Attending Dr: Dave Ortiz D.O. Ordering Physician: Dave Ortiz D.O. Date of Service: 10/30/23 Procedure(s): US OB BPP w non-stress Accession Number(s): [id number] cc: Dave Ortiz D.O.; Jaime Waddell [place] [address] Patient Name: ZULEIKA WADDELL MRN: [id number] date: 1990 Sex: F Assigned Patient Location: [facility] Current Patient Location: Accession/Order Number: [id number] Exam Date: 10/30/2023 14:45 Report Date: 10/30/2023 [...] Signed By: 10/30/23 1525 DD/ 22 TD/TT: [employer]: Procedure Note Radiology, Radiologist, - 10/30/2023 [place] [address] Ultrasound Report Signed Patient: ZULEIKA WADDELL LMR#: [id number] : 1990Acct:[id number] Age/Sex: 33 / FADM Date: 10/30/23 Loc: US Attending Dr: Dave Ortiz D.O. Ordering Physician: Dave Ortiz D.O. Date of Service: 10/30/23 Procedure(s): US OB BPP w non-stress Accession Number(s): [id number] cc: Dave Ortiz D.O.; Jaime Waddell The [place] [address] Patient Name: ZULEIKA WADDELL MRN: [id number] date: 1990 Sex: F Assigned Patient Location: [facility] Current Patient Location: Accession/Order Number: [id number] Exam Date: 10/30/2023 14:45 Report Date: 10/30/2023 [...] biophysical profile score: 8.0 Electronically authenticated by: GAAMLIEL CRUMP Date: 10/30/2023 15:23 Dictated By: Gamaliel Crump M.D. Signed By:10/30/23 152 DD/ 22 TD/TT: [employer]: us Dave Diana DO [facility] Final Result documented in this encounter Visit Diagnoses Not on filedocumented in this encounter Care Teams Brazer Crawler Torch Relationship Specialty Start Date End Date Unallocated, Noms Provider, [address] [place] [address] PCP - General 03/04/23 Jaime Waddell PA [address] [place] [address] Referring Physician Physical Medicine and Rehabilitation 03/04/23 documented as of this encounter
--- OUTSIDE RECORDS SUMMARY | 2024-12-04 10:06 | XMS_ITS | Encounter Summary ---
Author Organization [facility] Address [address] [facility] [place] [address] Care Team Providers Care Dental Aide Name Role Phone Yoselin Jaime FERMIN Unavailable Unallocated, Noms Provider Primary Care Provi kwabena Encounter Details Date Type Department Care Team (Late st Contact Info) Description 09/29/2024 Abstract [facility] OB [address] [place] [address] Cuong Ortiz DO [facility] [address], [place] [address] Social History Tobacco Use Types Packs/Day Years [...] OB [address] [place] [address] Cuong Ortiz DO [address] [place] [address] documented as of this encounter Goals Goal Patient Goal Type Associated Problems Recent Progress Patient-Stated? Author Reminders Care Plan OB Reminders No Open Scheduling, Background documented as of this encounter Visit Diagnoses Not on filedocumented in this encounter Additional Health Concerns Active Problems Noted Date Diagnosed Date OB Reminders 06/23/2024 documented as of this encounter Care Teams Dental Aide Relationship Specialty Start Date End Date Unallocated, Noms Provider, [address] [place] [address] PCP - General 03/04/23 Jaime Wyatt PA [address] [place] [address] Referring Physician Physical Medicine and Rehabilitation 03/04/23 documented as of this encounter
[2024-12-04 10:35] VITALS: BP 111/63; PULSE 86
== END 2024-12-04 11:03 | disposition home or self-care (01) ==
LOC: FBCO 10:03 → FBC 10:05
PROVIDERS: PCP Family Medicine; Visit Provider Obstetrics & Gynecology
DX: O35.8XX0 Maternal care for other (suspected) fetal abnormality and damage, not applicable or unspecified (principal)
CPT/HCPCS: 59025

== ENCOUNTER 2024-12-08 09:09 | Outpatient (OUT) | payer MEDICAID, SELFPAY ==
--- NOTE | 2024-12-08 | US_ITS ---
The [address] [address] Patient Name: ZULEIKA WADDELL MRN: [id number] date: 1990 Sex: F Assigned Patient Location: [facility] Current Patient Location: [facility] Accession/Order Number: [id number] Exam Date: 12/08/2024 11:48 Report Date: 12/08/2024 11:51 At the request of: DAVE CUELLAR DO Procedure: US OB BPP w non-stress BIOPHYSICAL PROFILE: CLINICAL INFORMATION: Christiano cisterna magna Q04.9 COMPARISON: 12/01/2024 There is a single live intrauterine gestation in cephalic presentation. The reported gestational age is 37 weeks 0 days. The heart rate measures 129 beats per minute. A nuchal cord is again suspected. FINDINGS : TONE: 1 or more episodes of activity extension and flexion of extremity or opening and closing of the hand [Y] 2/2 GROSS BODY MOVEMENTS: 3 or more discrete body or limb movements [Y] 2/2 BREATHING MOVEMENTS: 1 or more episodes of breathing lasting at least 30 seconds [Y] 2/2 ANURAG: A single deepest vertical pocket of amniotic fluid greater than 2 cm [Y] 2/2 ANURAG: 14.8 cm. This is in upper normal range. Total score: 8/8 US/US OB BPP w non-stress IMPRESSION: NORMAL BIOPHYSICAL PROFILE. CONTINUED POSSIBLE NUCHAL CORD. Impression dictated by: Adela Mahan M.D. 12/08/2024 11:51 AM Dictation Location: [place] [address] Electronically authenticated by: [id number] Y Date: 12/08/2024 11:51
[2024-12-08 09:47] VITALS: BP 115/74; PULSE 87
== END 2024-12-08 10:15 | disposition home or self-care (01) ==
LOC: US 09:09 → FBC 09:11
PROVIDERS: PCP Family Medicine; Visit Provider Obstetrics & Gynecology
DX: O26.893 Other specified pregnancy related conditions, third trimester (principal); Q04.9 Congenital malformation of brain, unspecified; Z3A.37 37 weeks gestation of pregnancy
CPT/HCPCS: 76818

== ENCOUNTER 2024-12-11 10:16 | Outpatient (OUT) | payer MEDICAID, SELFPAY ==
--- OUTSIDE RECORDS SUMMARY | 2024-08-25 09:45 | XMS_ITS ---
Author Organization [facility] vices Address [address] [place], [place] [address] Care Team Providers Care Proprietary Trader Name Role Phone Tiffany Petersen Primary Care Provider Ailyn Pringle [phone] REASON FOR VISIT Recall (A) 31 Social History Sex Assigned At : Social History Observation Description Sex Assigned At Female Encounters Encounter Location Date Provider Diagnosis Dental Main [address] [place], [place] [id number] 08/25/2024 Ailyn Pringle Plan Of Treatment No Information Progress Notes * Nadine WADDELLDOB: 2 (34 yo F)Acc No.[id number]:08/25/2024 Patient: Nadine BARRETT Provider: Bertin Pringle DMD :1990 A ge:34 Y S ex:Female Date:08/25/2024 Address:[address] [place] [address], [address] [facility]-[id number] Pcp:Tiffany Petersen Subjective: * Chief Complaints: * 1 . Recall (A) 31. * Medical History: Objective: * Vitals: Assessment: Plan: * Treatment: * Billing Information: * Visit Code: * Procedure Codes: * Electronic signature of Lilo Pringle DMD on 12/11/2024 at 10:18 AM EDT Sign off status: Pending * Provider: Bertin Pringle DMD Date: 0 08/25/2024 Generated for Vale coto/Judy/Kimberley on: 0 12/11/2024 10:18 AM EDT
--- OUTSIDE RECORDS SUMMARY | 2024-08-27 07:41 | XMS_ITS ---
Author Organization [facility] in [place] Address [address] [place] [address] Care Team Providers Care Bench Hand Machine Name Role Phone Laron Avila Primary Care [...] Active Encounters Encounter Location Date Provider Diagnosis [address] [address] 08/27/2024 Laron Avila Plan Of Treatment Medication [...] Nadine WADDELL LDOB: [birth year] (34 yo F)Acc No.[id number]:08/27/2024 Patient: Nadine BARRETT Nishant :1990 A ge:34 Y S ex:Female Address:[address], [place] [address] * Refills Start Ventolin HFA Aerosol Solution, [...] Date: Generated for Vale coto/Judy/Faisalitting on: 0 12/11/2024 10:18 AM EDT
--- OUTSIDE RECORDS SUMMARY | 2024-08-28 07:32 | XMS_ITS ---
Author Organization The [facility] in [place] Address [address] [place] [address] Care Team Providers Care Physician Assistant Primary Care Name Role Phone Laron Avila Primary Care Provider REASON FOR VISIT epi pen Medications Medication SIG (Take, Route, Frequency, Duration) Notes Start Date End Date Status EpiPen 2-Long 0.3 MG/0.3ML as directed In jection once prn 08/28/2024 Active Encounters Encounter Location Date Provider Diagnosis [address] [address] 08/28/2024 Laron Avila Plan Of Treatment Medication Medication Name Sig Start Date Stop Date Notes EpiPen 2-Long 0.3 MG/0.3ML as directed Injection once prn 0 08/28/2024 Progress Notes * Nadine WADDELL LDOB: [birth year] (34 yo F)Acc No.[id number]:08/28/2024 Patient: Nadine BARRETT :1990 A ge:34 Y S ex:Female Address:[address] [place] [address], [address] [address] * Refills Start EpiPen 2-Long Solution Auto-injector, 0.3 MG/0.3ML, Injection, 1, as directed, once prn, Refills=11 * true * Date: Generated for Printi ng/Faxing/eTransmitting on: 0 12/11/2024 10:19 AM EDT
--- OUTSIDE RECORDS SUMMARY | 2024-09-11 06:30 | XMS_ITS ---
Author Organization [facility] vices Address [address] [place], [place] [id number] Care Team Providers Care Yarn Spinner Name Role Phone TrinityMaryanaTiffany Primary Care Provider [phone] Ailyn Pringle [phone] REASON FOR VISIT Recall (A) 32 Medications Medication SIG (Take, Route, Frequency, Duration) Notes Start Date End Date Status Zofran Active 27-1 MG 1 tablet Orally Once a day Active Acetaminophen 500 MG 2 tablet as needed for pain/fever Orally Three Times a day for 30 days Active Flonase Allergy Relief 50 MCG/ACT 1 spray in each nostril Nasally once daily for 30 days 06/04/2024 Active Loratadine 10 MG 1 tablet Orally Once a day for 10 days 06/04/2024 Active Social History Sex Assigned At : Social History Observation Description Sex Assigned At Female Encounters Encounter Location Date Provider Diagnosis Dental Main [address] [place], [place] [id number] 09/11/2024 Ailyn Pringle Plan Of Treatment No Information Progress Notes * Nadine WADDELLDOB: 2 (34 yo F)Acc No.[id number]:09/11/2024 Patient: Nadine BARRETT Provider: Bertin Pringle DMD :1990 A ge:34 Y S ex:Female Date:09/11/2024 Address:[address], [id number] Pcp:Tiffany Petersen Subjective: * Chief Complaints: * 1 . Recall (A) 32. * Medical History: * Medications: T evan Yip , Taking Acetaminophen 500 MG Tablet 2 tablet as needed for pain/fever Orally Three Times a day , Taking 27-1 MG Tablet 1 tablet Orally Once a day , Taking Loratadine 10 MG Tablet 1 tablet Orally Once a day , Taking Flonase Allergy Relief 50 MCG/ACT Suspension 1 spray in each nostril Nasally once daily Objective: * Vitals: Assessment: Plan: * Treatment: * Billing Information: * Visit Code: * Procedure Codes: * Electronic signature of Lilo Pringle DMD on 12/11/2024 at 10:19 AM EDT Sign off status: Pending * Provider: Bertin Pringle DMD Date: 09/11/2024 Generated for Vale coto/Judy/Kimberley on: 0 12/11/2024 10:19 AM EDT
--- OUTSIDE RECORDS SUMMARY | 2024-09-23 09:05 | XMS_ITS ---
Author Organization The [facility] in [place] Address [address] [place] [address] Care Team Providers Care Clinic Office Manager Name Role Phone Laron Avila Primary Care Provider REASON FOR VISIT ER- check on Encounters Encounter Location Date Provider Diagnosis [address] [address] 09/23/2024 Laron Avila Plan Of Treatment No Information Progress Notes * Nadine WADDELL LDOB: [birth year] (34 yo F)Acc No.[id number]:09/23/2024 Patient: Nadine BARRETT :1990 A ge:34 Y S ex:Female Address:[address] [place] [address], [address] [address] * true * Date: Generated for Vale coto/Judy/eTransmitting on: 0 12/11/2024 10:18 AM EDT
--- OUTSIDE RECORDS SUMMARY | 2024-11-30 13:10 | XMS_ITS | Encounter Summary ---
Author Organization [facility] Address [address] [facility] [place] [address] Care Team Providers Care Collection Officer Name Role Phone Yoselin Jaime FERMIN Unavailable Unallocated, Noms Provider Primary Care Provi kwabena Reason for Visit * Reason Comments Routine Visit Encounter Details Date Type Department Care Team (Late st Contact Info) Description 11/30/2024 1:10 PM EDT Routine [facility] OB [address] [phone] Cuong Ortiz, DO [address] [facility] [address] Derek Vick, [facility]11 Third trimester ([facility]); 35 weeks gestation of ([facility]) Social History Tobacco Use Types [...] as of this encounter Progress Notes * Airam Murphy LPN - 11/30/2024 1:10 PM EDT Reason for Appointment: Patient ID: [...] Noted Family history of trisomy 13 09/30/2023 Third trimester ([facility]) 11/23/2024 34 weeks gestation of ([facility]) 11/23/2024 Resolved Ambulatory Problems Diagnosis Date Noted No Resolved Ambulatory Problems Past Medical History: Diagnosis Date Abscess ADD (attention deficit disorder) ADHD (attention deficit hyperactivity disorder) Anxiety Bacterial vaginosis Bipolar disorder (HCC) Club foot Depression Female infertility Heart problem Hormone imbalance HISTORY PAST MEDICAL HISTORY SOCIAL HISTORY Past Medical History: Diagnosis Date Abscess ADD (attention deficit disorder) ADHD (attention deficit hyperactivity disorder) Anxiety Bacterial vaginosis Bipolar disorder (HCC) Club foot Depression Female infertility Heart problem Heart Issue Hormone [...] nursing note reviewed. Exam conducted with a mainspring winder present. Vitals: Estimated body mass index is 27.6 kg/m?? as calculated from the following: Height as of 10/24/22: 5' 6 . Weight as of 11/23/24: 171 lb. BP: Patient's last menstrual period was 03/24/2024. ASSESSMENT & PLAN ICD-10-CM 1. Third trimester ([facility]) Z34.93 POCT urinalysis dipstick manually resulted CULTURE, GROUP B STREP WITH SUSCEPTIBLITY 2. 35 weeks gestation of ([facility]) Z3A.35 Patient is doing well but has complaints of being tired and having maternal discomfort due to . Patient verbalized frequent movement and was instructed to perform kick counts three times per day. labor precautions were given, LARC consent was signed/declined, and GBS was obtained. Orders Placed This Encounter Procedures CULTURE, GROUP B STREP WITH SUSCEPTIBLITY POCT urinalysis dipstick manually resulted Follow Up: Patient is to return to office in 1 week for routine OB appointment Documented by Airam Murphy LPN on behalf of: Cuong Ortiz DO documented in this encounter Plan of Treatment Upcoming Encounters Date Type Department Care Team (Late st Contact Info) Description 12/14/2024 1:30 PM EDT Routine [facility] B[facility] OB [address] [place] [address] [place] [phone] Cuong Ortiz, DO [address] [facility] [address] Derek [place] [id number] Scheduled Orders Name Type Priority Associated Diagnoses Orde r Schedule CULTURE, GROUP B STREP WITH SUSCEPTIBLITY Lab Routine Third trimester ([facility]) Expected: 11/30/2024, Expires: 11/30/2025 documented as of this encounter Goals Goal Patient Goal Type Associated Problems Recent Progress Patient-Stated? Author Reminders Care Plan OB Reminders No Open Scheduling, Background documented as of this encounter Procedures Procedure Name Priority Date/Time Associated Diagnosis Comments POCT URINALYSIS DIPSTICK Routine 11/30/2024 2:02 PM EDT Third trimester ([facility]) documented in this encounter Results [...] this encounter Visit Diagnoses Diagnosis Third trimester ([facility]) state, incidental 35 weeks gestation of ([facility]) documented in this encounter Additional Health Concerns Active Problems Noted Date Diagnosed Date OB Reminders 06/23/2024 documented as of this encounter Care Teams Collection Officer Relationship Specialty Start Date End Date Unallocated, Noms Provider, [address] [place] [address] PCP - General 03/04/23 Jaime Wyatt PA [address] [place], [place] [phone] Referring Physician Physical Medicine and Rehabilitation 03/04/23 documented as of this encounter
--- OUTSIDE RECORDS SUMMARY | 2024-12-07 13:00 | XMS_ITS | Encounter Summary ---
Author Organization [facility] Address [address] [facility] [place] [address] Care Team Providers Care Preschool Adviser Name Role Phone Yoselin Jaime FERMIN Unavailable Unallocated, Noms Provider Primary Care Provi kwabena Reason for Visit * Reason Comments Routine Visit Encounter Details Date Type Department Care Team (Late st Contact Info) Description 12/07/2024 1:00 PM EDT Routine [facility] OB [address] [place] [phone] Cuong Ortiz, DO [address] [facility] [address] [place], [facility]11 Third trimester ([facility]); 36 weeks gestation of ([facility]) Social History Tobacco Use Types Packs/Day Years [...] Reading Time Taken Comments Blood Pressure 126/87 12/07/2024 1:38 PM EDT Pulse - - Temperature - - Respiratory Rate - - Oxygen Saturation - - Inhaled Oxygen Concentration - - Weight - - Height - - Body Mass Index - - documented in this encounter Progress Notes * Airam Murphy [...] history of trisomy 13 09/30/2023 Third trimester ([facility]) 11/23/2024 34 weeks gestation of ([facility]) 11/23/2024 Resolved Ambulatory Problems Diagnosis Date Noted No Resolved Ambulatory Problems Past Medical History: Diagnosis Date Abscess ADD (attention deficit disorder) ADHD (attention deficit hyperactivity disorder) Anxiety Bacterial vaginosis Bipolar disorder ([facility]) Club foot Depression Female infertility Heart problem [...] nursing note reviewed. Exam conducted with a house calls nurse present. Vitals: Estimated body mass index is 27.6 kg/m?? as calculated from the following: Height as of 10/24/22: 5' 6 . Weight as of 11/23/24: 171 lb. BP: Patient's last menstrual period was 03/24/2024. ASSESSMENT & PLAN ICD-10-CM 1. Third trimester ([facility]) Z34.93 2. 36 weeks gestation of ([facility]) Z3A.36 Patient presents today for a routine obstetrics appointment. Patient is currently 36w6d with a Estimated Date of Delivery: 12/29/24. Patient has a nuchal cord and will have induction of laboron 12/16/24 @0500. Patient signed consents and Dr. Ortiz called [facility] and spoke with Diann and placed patient on the books. Patient to continue with NST/BPP and return to clinic in 1 week. Documented by Airam Murphy LPN on behalf of: Cuong Ortiz DO documented in this encounter Plan of Treatment Upcoming Encounters Date Type Department Care Team (Late st Contact Info) Description 12/14/2024 1:30 PM EDT Routine [facility] OB [address] [facility] [place] [address] Cuong Ortiz DO [address] [facility] [place] [address] documented as of this encounter Goals Goal Patient Goal Type Associated Problems Recent Progress Patient-Stated? Author Reminders Care Plan OB Reminders No Open Scheduling, Background documented as of this encounter Visit Diagnoses Diagnosis Third trimester ([facility]) state, incidental 36 weeks gestation of ([facility]) documented in this encounter Additional Health Concerns Active Problems Noted Date Diagnosed Date OB Reminders 06/23/2024 documented as of this encounter Care Teams Preschool Adviser Relationship Specialty Start Date End Date Unallocated, Noms Provider, [address] [place] [address] PCP - General 03/04/23 Jaime Wyatt PA [address] [place] [address] Referring Physician Physical Medicine and Rehabilitation 03/04/23 documented as of this encounter
--- OUTSIDE RECORDS SUMMARY | 2024-12-11 10:18 | XMS_ITS | Encounter Summary ---
Author Organization [facility] Address [address] [place] [address] Care Team Providers Care Leadite Worker Name Role Phone Yoselin Jaime FERMIN Unavailable Unallocated, Noms Provider Primary Care Provi kwabena Encounter Details Date Type Department Care Team (Late st Contact Info) Description 12/01/2024 Clinisync Result Encounter [facility] External Department Unsolicited Dave Ortiz, DO [address] [place] [address] Social History Tobacco Use Types Packs/Day Years [...] Description 12/14/2024 1:30 PM EDT Routine [facility] OB [address] [place] [address] Dave Ortiz, DO [address] [place] [address] (work) documented as of this encounter Goals [...] AM EDT Narrative 12/01/2024 11:15 [place] [address] Ultrasound Report Signed Patient: ZULEIKA WADDELL MR#: [id number] : 1990 Acct:[id number] Age/Sex: 34 / F ADM Date: 12/01/24 Loc: US Attending Dr: Dave Ortiz D.O. Ordering Physician: Dave Ortiz D.O. Date of Service: 12/01/24 Procedure(s): US OB BPP w non-stress Accession Number(s): [id number] cc: Dave Ortiz D.O.; Ramon Avila M.D. [address] [id number] Patient Name: ZULEIKA WADDELL MRN: [id number] date: 1990 Sex: F Assigned Patient Location: Current Patient Location: Accession/Order Number: [id number] Exam Date: 12/01/2024 11:04 Report Date: 12/01/2024 [...] Mahan M.D. 12/01/2024 11:12 AM Dictation Location: [place] [address] Electronically authenticated by: [id number] Y Date: 12/01/2024 11:12 Dictated By: Adela Mahan M.D. Signed By: 12/01/24 1115 DD/ 1112 TD/TT: Supervisor [employer] Service: Procedure Note Radiology, Radiologist, - 12/01/2024 [place] [address] Ultrasound Report Signed Patient: ZULEIKA WADDELL LMR#: [id number] : 1990Acct:[id number] Age/Sex: 34 / FADM Date: 12/01/24 Loc: US Attending Dr: Dave Ortiz D.O. Ordering Physician: Dave Ortiz D.O. Date of Service: 12/01/24 Procedure(s): US OB BPP w non-stress Accession Number(s): [id number] cc: Dave Ortiz D.O.; Ramon Avila M.D. [address] [address] Patient Name: ZULEIKA WADDELL MRN: [id number] date: 1990 Sex: F Assigned Patient Location: US Current Patient Location: Accession/Order Number: [id number] Exam Date: 12/01/2024 11:04 Report Date: 12/01/2024 [...] NORMAL BIOPHYSICAL PROFILE Impression dictated by: Adela aMhan M.D. 12/01/2024 11:12 AM Dictation Location: [place] [address] Electronically authenticated by: [id number] Y Date: 1:12 Dictated By: Adela Mahan M.D. Signed By:12/01/24 1115 DD/ 1112 TD/TT: Supervisor [employer] Service: us Dave Diana DO [facility] Final Result documented in this encounter Visit Diagnoses Not on filedocumented in this encounter Additional Health Concerns Active Problems Noted Date Diagnosed Date OB Reminders 06/23/2024 documented as of this encounter Care Teams Leadite Worker Relationship Specialty Start Date End Date Unallocated, Noms Provider, [address] [place] [address] PCP - General 03/04/23 Jaime Waddell PA [address] [place] [address] Referring Physician Physical Medicine and Rehabilitation 03/04/23 documented as of this encounter
--- OUTSIDE RECORDS SUMMARY | 2024-12-11 10:18 | XMS_ITS | Encounter Summary ---
Author Organization [facility] Address [address] [facility] [place] [address] Care Team Providers Care Breast Worker Name Role Phone Yoselin Jaime FERMIN Unavailable Unallocated, Noms Provider Primary Care Provi kwabena Encounter Details Date Type Department Care Team (Late st Contact Info) Description 11/16/2024 Abstract [facility] OB [address] [place] [address] Cuong Ortiz DO [facility] [address], [place] [address] Social History Tobacco Use Types Packs/Day Years [...] Routine [facility] B[facility] OB [address] [place] [address] Cuong Ortiz DO [address] [place] [address] [place] [address] documented as of this encounter Goals Goal Patient Goal Type Associated Problems Recent Progress Patient-Stated? Author Reminders Care Plan OB Reminders No Open Scheduling, Background documented as of this encounter Visit Diagnoses Not on filedocumented in this encounter Additional Health Concerns Active Problems Noted Date Diagnosed Date OB Reminders 06/23/2024 documented as of this encounter Care Teams Breast Worker Relationship Specialty Start Date End Date Unallocated, Noms Provider, [address] [place] [address] PCP - General 03/04/23 Jaime Wyatt PA [address] [place] [address] Referring Physician Physical Medicine and Rehabilitation 03/04/23 documented as of this encounter
--- OUTSIDE RECORDS SUMMARY | 2024-12-11 10:18 | XMS_ITS | Encounter Summary ---
Author Organization [facility] Address [address] [place] [facility] [place] [address] Care Team Providers Care Violent Crimes Detective Name Role Phone Yoselin Jaime FERMIN Unavailable Unallocated, Noms Provider Primary Care Provi kwabena Encounter Details Date Type Department Care Team (Late st Contact Info) Description 08/28/[address] [facility] OB [address] [place] [address] Cuong Ortiz DO [facility] [address], [place] [address] Social History Tobacco Use Types Packs/Day Years [...] [address] [place] [address] [place] [address] documented as of this encounter Goals Goal Patient Goal Type Associated Problems Recent Progress Patient-Stated? Author Reminders Care Plan OB Reminders No Open Scheduling, Background documented as of this encounter Visit Diagnoses Not on filedocumented in this encounter Additional Health Concerns Active Problems Noted Date Diagnosed Date OB Reminders 06/23/2024 documented as of this encounter Care Teams Violent Crimes Detective Relationship Specialty Start Date End Date Unallocated, Noms Provider, [address] [place] [address] PCP - General 03/04/23 Jaime Wyatt PA [address] [place] [address] Referring Physician Physical Medicine and Rehabilitation 03/04/23 documented as of this encounter
--- OUTSIDE RECORDS SUMMARY | 2024-12-11 10:18 | XMS_ITS | Encounter Summary ---
Author Organization [facility] Address [address] [facility] [place] [address] Care Team Providers Care Motor Teacher Name Role Phone Yoselin Jaime FERMIN Unavailable Unallocated, Noms Provider Primary Care Provi kwabena Encounter Details Date Type Department Care Team (Late st Contact Info) Description 12/01/2024 Clinisync Result Encounter [facility] External Department Unsolicited Dave Ortiz, DO [address] [place] [address] Social History Tobacco Use Types Packs/Day Years [...] Description 12/14/2024 1:30 PM EDT Routine [facility] OB [address] [place] [address] Dave Ortiz, DO [address] [place] [address] (work) documented as of this encounter Goals [...] AM EDT Narrative 12/01/2024 11:15 [place] [address] Ultrasound Report Signed Patient: ZULEIKA WADDELL MR#: [id number] : 1990 Acct:[id number] Age/Sex: 34 / F ADM Date: 12/01/24 Loc: US Attending Dr: Dave Ortiz D.O. Ordering Physician: Dave Ortiz D.O. Date of Service: 12/01/24 Procedure(s): US OB growth Accession Number(s): [id number] cc: Dave Ortiz D.O.; Ramon Avila M.D. The [address] [address] Patient Name: ZULEIKA WADDELL MRN: [id number] date: 1990 Sex: F Assigned Patient Location: [facility] Current Patient Location: Accession/Order Number: [id number] Exam Date: 12/01/2024 11:04 Report Date: 12/01/2024 [...] Mahan M.D. 12/01/2024 11:12 AM Dictation Location: [place] [address] Electronically authenticated by: [id number] Y Date: 12/01/2024 11:12 Dictated By: Adela Mahan M.D. Signed By: 12/01/24 1115 DD/ 1112 TD/TT: Credentialing Coordinator: Procedure Note Radiology, Radiologist, MD - 12/01/2024 [place] [address] Ultrasound Report Signed Patient: ZULEIKA WADDELL LMR#: [id number] : 1990Acct:[id number] Age/Sex: 34 / FADM Date: 12/01/24 Loc: US Attending Dr: Dave Ortiz D.O. Ordering Physician: Dave Ortiz D.O. Date of Service: 12/01/24 Procedure(s): US OB growth Accession Number(s): [id number] cc: Dave Ortiz D.O.; Ramon Avila M.D. [place] [id number] Patient Name: ZULEIKA WADDELL MRN: [id number] date: 1990 Sex: F Assigned Patient Location: [facility] Current Patient Location: Accession/Order Number: [id number] Exam Date: 12/01/2024 11:04 Report Date: 12/01/2024 [...] Mahan M.D. 12/01/2024 11:12 AM Dictation Location: [place] [address] Electronically authenticated by: [id number] Y Date: 1:12 Dictated By: Adela Mahan M.D. Signed By:12/01/24 1115 DD/ 1112 TD/TT: Credentialing Coordinator: us Dave Diana DO [facility] Final Result documented in this encounter Visit Diagnoses Not on filedocumented in this encounter Additional Health Concerns Active Problems Noted Date Diagnosed Date OB Reminders 06/23/2024 documented as of this encounter Care Teams Motor Teacher Relationship Specialty Start Date End Date Unallocated, Noms Provider, [address] [place], [place] [id number] PCP - General 03/04/23 Jaime Waddell PA [address] [place] [address] Referring Physician Physical Medicine and Rehabilitation 03/04/23 documented as of this encounter
--- OUTSIDE RECORDS SUMMARY | 2024-12-11 10:19 | XMS_ITS | Encounter Summary ---
Author Organization [facility] Address [address] [facility] [place] [address] Care Team Providers Care Dietetic Intern Name Role Phone Yoselin Jaime FERMIN Unavailable Unallocated, Noms Provider Primary Care Provi kwabena Encounter Details Date Type Department Care Team (Late st Contact Info) Description 10/16/2023 Clinisync Result Encounter [facility] External Department Unsolicited Dave Ortiz, DO [facility] [place], [place] [address] Social History Tobacco Use Types Packs/Day Years [...] Routine [facility] B[facility] OB [address] [place] [phone] Dave Ortiz DO [facility] [place] [address] documented as of this encounter Procedures Procedure Name Priority Date/Time Associated Diagnosis Comments US OB BPP W NON-STRESS 10/16/2023 3:05 PM EDT documented in this encounter Results * US OB BPP W NON-STRESS (10/16/2023 3:05 PM EDT) Anatomical Region Laterality Modality Other 10/16/2023 3:05 PM EDT Narrative 10/16/2023 3:08 [place] [address] Ultrasound Report Signed Patient: ZULEIKA WADDELL MR#: [id number] : 1990 Acct:[id number] Age/Sex: 33 / F ADM Date: 10/16/23 Loc: [facility] 250-[address]: Dave Ortiz D.O. Ordering Physician: Dave Ortiz D.O. Date of Service: 10/16/23 Procedure(s): US OB BPP w non-stress Accession Number(s): [id number] cc: Dave Ortiz D.O.; WaddellJaime [place] [address] Patient Name: ZULEIKA WADDELL MRN: [id number] date: 1990 Sex: F Assigned Patient Location: [facility] Current Patient Location: [facility] Accession/Order Number: [id number] Exam Date: 10/16/2023 14:10 Report Date: 10/16/2023 [...] Signed By: 10/16/23 1508 DD/ 1505 TD/TT: Back Order Clerk: Procedure Note Radiology, Radiologist, - 10/16/2023 [place] [address] Ultrasound Report Signed Patient: ZULEIKA WADDELL LMR#: [id number] : 1990Acct:[id number] Age/Sex: 33 / FADM Date: 10/16/23 Loc: [facility] 250-[address]: Dave Ortiz D.O. Ordering Physician: Dave Ortiz D.O. Date of Service: 10/16/23 Procedure(s): US OB BPP w non-stress Accession Number(s): [id number] cc: Dave Ortiz D.O.; Jaime Waddell [place] [address] Patient Name: ZULEIKA WADDELL MRN: [id number] date: 1990 Sex: F Assigned Patient Location: [facility] Current Patient Location: [facility] Accession/Order Number: [id number] Exam Date: 10/16/2023 14:10 Report Date: 10/16/2023 [...] M.D. Signed By:10/16/23 1508 DD/ 1505 TD/TT: Back Order Clerk: us Dave Ortiz DO [facility] Final Result documented in this encounter Visit Diagnoses Not on filedocumented in this encounter Care Teams Dietetic Intern Relationship Specialty Start Date End Date Unallocated, Noms Provider, [address] [place], [place] [phone] PCP - General 03/04/23 Jaime Waddell PA [address] [place] [address] Referring Physician Physical Medicine and Rehabilitation 03/04/23 documented as of this encounter
--- OUTSIDE RECORDS SUMMARY | 2024-12-11 10:19 | XMS_ITS | Encounter Summary ---
Author Organization [facility] Address [address] [facility] [place] [address] Care Team Providers Care Planting Machine Operator Name Role Phone Yoselin Jaime FERMIN Unavailable Unallocated, Noms Provider Primary Care Provi kwabena Encounter Details Date Type Department Care Team (Late st Contact Info) Description 10/24/2023 Clinisync Result Encounter [facility] External Department Unsolicited Dave Otriz, DO [facility] [address], [place] [address] Social History Tobacco Use Types Packs/Day Years [...] [facility] B[facility] OB [address] [place] [phone] Dave Ortiz DO [facility] [place] [address] documented as of this encounter Procedures Procedure Name Priority Date/Time Associated Diagnosis Comments US OB BPP W NON-STRESS 10/24/2023 7:37 AM EDT documented in this encounter Results * US OB BPP W NON-STRESS (10/24/2023 7:37 AM EDT) Anatomical Region Laterality Modality Other 10/24/2023 7:37 AM EDT Narrative 10/24/2023 7:40 [place] [address] Ultrasound Report Signed Patient: ZULEIKA WADDELL MR#: [id number] : 1990 Acct:[id number] Age/Sex: 33 / F ADM Date: 10/23/23 Loc: US Attending Dr: Dave Ortiz D.O. Ordering Physician: Dave Ortiz D.O. Date of Service: 10/23/23 Procedure(s): US OB BPP w non-stress Accession Number(s): [id number] cc: Dave Ortiz D.O.; Jaime Waddell [place] [address] Patient Name: ZULEIKA WADDELL MRN: [id number] date: 1990 Sex: F Assigned Patient Location: US Current Patient Location: Accession/Order Number: [id number] Exam Date: 10/23/2023 15:25 Report Date: 10/24/2023 [...] M.D. Signed By: 10/24/23739 DD/ 6 TD/TT: Manager Desktop: Procedure Note Radiology, Radiologist, - 10/24/2023 [place] [address] Ultrasound Report Signed Patient: ZULEIKA WADDELL LMR#: [id number] : 1990Acct:[id number] Age/Sex: 33 / FADM Date: 10/23/23 Loc: US Attending Dr: Dave Ortiz D.O. Ordering Physician: Dave Ortiz D.O. Date of Service: 10/23/23 Procedure(s): US OB BPP w non-stress Accession Number(s): [id number] cc: Dave Ortiz D.O.; Jaime Waddell [place] [phone] Patient Name: ZULEIKA WADDELL MRN: [facility]:[id number] date: 1990 Sex: F Assigned Patient Location: US Current Patient Location: US Accession/Order Number: [id number] Exam Date: 10/23/2023 15:25 Report Date: 10/24/2023 [...] Dawn M.D. Signed By:10/24/2340 DD/ 6 TD/TT: Manager Desktop: us Dave Ortiz DO [facility] Final Result documented in this encounter Visit Diagnoses Not on filedocumented in this encounter Care Teams Planting Machine Operator Relationship Specialty Start Date End Date Unallocated, Noms Provider, [address] [place], [place] [phone] PCP - General 03/04/23 Jaime Waddell PA [address] [place] [address] Referring Physician Physical Medicine and Rehabilitation 03/04/23 documented as of this encounter
--- OUTSIDE RECORDS SUMMARY | 2024-12-11 10:19 | XMS_ITS | Encounter Summary ---
Author Organization [facility] Address [address] [facility] [[email or web address] [place] [address] Care Team Providers Care Data Report Analyst Name Role Phone Yoselin Jaime FERMIN Unavailable Unallocated, Noms Provider Primary Care Provi kwabena Encounter Details Date Type Department Care Team (Late st Contact Info) Description 11/07/2023 Clinisync Result Encounter [facility] External Department Unsolicited Dave Ortiz, DO [facility] [address], [place] [address] Social History Tobacco Use Types Packs/Day Years [...] [facility] BCP OB [address] [place] [phone] Dave Ortiz DO [facility] [place] [address] documented as of this encounter Procedures Procedure Name Priority Date/Time Associated Diagnosis Comments US OB BPP W NON-STRESS 11/07/2023 7:10 AM EDT documented in this encounter Results * US OB BPP W NON-STRESS (11/07/2023 7:10 AM EDT) Anatomical Region Laterality Modality Other 11/07/2023 7:10 AM EDT Narrative 11/07/2023 7:13 [place] [address] Ultrasound Report Signed Patient: ZULEIKA WADDELL MR#: [id number] : 1990 Acct:[id number] Age/Sex: 33 / F ADM Date: 11/06/23 Loc: US Attending Dr: Dave Ortiz D.O. Ordering Physician: Dave Ortiz D.O. Date of Service: 11/06/23 Procedure(s): US OB BPP w non-stress Accession Number(s): [id number] cc: Dave Ortiz D.O.; Jaime Waddell [place] [address] Patient Name: ZULEIKA WADDELL MRN: [id number] date: 1990 Sex: F Assigned Patient Location: Current Patient Location: [facility] Accession/Order Number: [id number] Exam Date: 11/06/2023 14:19 Report Date: 11/07/2023 [...] M.D. Signed By: 11/07/23712 DD/ 9 TD/TT: Soil Science Technical Officer: Procedure Note Radiology, Radiologist, - 11/07/2023 [place] [address] Ultrasound Report Signed Patient: ZULEIKA WADDELL LMR#: [id number] : 1990Acct:[id number] Age/Sex: 33 / FADM Date: 11/06/23 Loc: US Attending Dr: Dave Ortiz D.O. Ordering Physician: Dave Ortiz D.O. Date of Service: 11/06/23 Procedure(s): US OB BPP w non-stress Accession Number(s): [id number] cc: Dave Ortiz D.O.; Jaime Waddell [place] [phone] Patient Name: ZULEIKA WADDELL MRN: [id number] date: 1990 Sex: F Assigned Patient Location: Current Patient Location: [facility] Accession/Order Number: [id number] Exam Date: 11/06/2023 14:19 Report Date: 11/07/2023 [...] Crump M.D. Signed By:11/07/23712 DD/ 9 TD/TT: Soil Science Technical Officer: us Dave Diana DO [facility] Final Result documented in this encounter Visit Diagnoses Not on filedocumented in this encounter Care Teams Data Report Analyst Relationship Specialty Start Date End Date Unallocated, Noms Provider, [address] [place], [place] [phone] PCP - General 03/04/23 Jaime Waddell PA [address] [place] [address] Referring Physician Physical Medicine and Rehabilitation 03/04/23 documented as of this encounter
--- OUTSIDE RECORDS SUMMARY | 2024-12-11 10:19 | XMS_ITS | Clinical Summary ---
Author Organization [facility] Address [address] [address] Care Team Providers Care Road Inspector Name Role Phone Jaime Wyatt FERMIN Unavailable [...] Plus Multivitamin) 27-1 MG tabletIndication s:First trimester ([facility]) Take 1 tablet by mouth Daily 30 tablet 11 04/29/2024 Active EPINEPHrine (Epipen) 0.3 MG/0.3ML injection syringe 08/29/2024 Active Flonase Allergy Relief 50 MCG/ACT nasal spray 1 (one) time each day at the same time 06/04/2024 Active loratadine (Claritin) 10 MG tablet 1 (one) time each day at the same time 06/04/2024 Active Active Problems Problem Noted Date Diagnosed Date Third trimester ([facility]) 11/23/2024 34 weeks gestation of ([facility]) 2024 Family history of trisomy 13 09/30/2023 Estimated Date of Delivery Comme nts Yes 12/29/2024 Based on last me nstrual period of 03/24/2024 Encounters Date Type Department Care Team Description 12/10/2024 Patient Outreach [facility] [address] [place] [address] Elena Felix, LISHA 12/08/2024 Clinisync Result Encounter [facility] External Department Unsolicited Dave Ortiz, DO 12/07/2024 1:00 PM EDT Routine [facility] OB [address] [place] [address] Dave Ortiz, DO Third trimester ([facility]); 36 weeks gestation of ([facility]) 12/07/2024 Abstract [facility] OB [facility] [place] [address] Airam Murphy, COFFEE SAMPLER 12/07/2024 Bamboo flowsheet [facility] OB [facility] [place] [phone] Dave Ortiz, DO 12/01/2024 Clinisync Result Encounter [facility] External Department Unsolicited Dave Ortiz, DO 12/01/2024 Clinisync Result Encounter [facility] External Department Unsolicited Dave Ortiz, DO 11/30/2024 1:10 PM EDT Routine [facility] OB [address] [place] [address] Dave Ortiz, DO Third trimester ([facility]); 35 weeks gestation of ([facility]) 11/30/2024 Bamboo flowsheet [facility] OB [address] [place] [address] Dave Ortzi, DO 11/24/2024 Clinisync Result Encounter [facility] External Department Unsolicited Dave Ortiz, DO 11/23/2024 2:20 PM EDT Routine [facility] OB [address] [place] [address] [place] [address] Dave Ortiz, DO Third trimester ([facility]); 34 weeks gestation of ([facility]) 11/23/2024 Bamboo flowsheet [facility] OB [address] [place] [address] [place] [phone] Dave Ortiz, DO 11/17/2024 Clinisync Result Encounter [facility] External Department Unsolicited Dave Ortiz, DO 11/17/2024 Abstract [facility] OB [address] [place] [address] [place] [address] Dave Ortiz, DO 11/16/2024 Abstract [facility] [address] [place] [address] Dave Ortiz, DO 11/12/2024 Patient Outreach [facility] [place] [address] [place] [address] Elena Felix LPN 11/10/2024 11:00 AM EDT Routine [facility] OB [address] [place] [address] [place] [phone] Dave Ortiz, DO 33 weeks gestation of ([facility]); Third trimester ([facility]) 11/10/2024 Clinisync Result Encounter [facility] External Department Unsolicited Dave Ortiz, DO 11/10/2024 Bamboo flowsheet [facility] [address] [facility] [place] [address] Dave Ortiz, DO 11/06/2024 Clinisync Result Encounter [facility] External Department Unsolicited Dave Ortiz, DO 11/03/2024 Clinisync Result Encounter [facility] External Department Unsolicited Dave Ortiz, DO 11/03/2024 Clinisync Result Encounter [facility]OMS External Department Unsolicited Dave Ortiz, DO 10/26/2024 11:20 AM EDT Routine [facility] [address] [place] [address] Dave Ortiz, DO 30 weeks gestation of ([facility]); Third trimester ([facility]); Nadia cisterna magna ([facility]); 28 weeks gestation of ([facility]); SGA (small for gestational age) ([facility]) 10/26/2024 Clinisync Result Encounter [facility]OMS External Department Unsolicited Dave Ortiz, DO 10/26/2024 Bamboo flowsheet [facility] [address] [place] [address] Dave Ortiz, DO 10/20/2024 Telephone [facility] [address] [place] [address] Dave Ortiz, DO 10/19/2024 11:30 AM EDT Ancillary Procedure [facility] [address] [place] [address] Nadia cisterna magna (HCC) 10/18/2024 Travel 10/12/2024 9:20 AM EDT Routine [facility] [address] [place] [address] Dave Ortiz, Third trimester ([facility]); 28 weeks gestation of ([facility]); Nadia cisterna magna (HCC) 10/12/2024 Patient Outreach [facility] [address] [place] [address] Elena Felix LPN 10/12/2024 Bamboo flowsheet [facility] [address] [place] [address] Dave Ortiz, DO 09/29/2024 Orders Only [facility] [address] [place] [address] Destinee Vazquez LPN 09/29/2024 Abstract [facility] [address] [place] [address] Dave Ortiz DO 09/10/2024 11:10 AM EDT Routine [facility] [address] [place] [address] Dave Ortiz DO Well woman exam with routine gynecological exam; STD exposure; Vaginal discharge; Second trimester ([facility]); 24 weeks gestation of ([facility]) 09/10/2024 Clinisync Result Encounter [facility]OMS External Department Unsolicited Dave Ortiz, 09/10/2024 External Result Encounter [facility]S External Department Unsolicited Dave Ortiz, 09/10/2024 Bamboo flowsheet [facility] [address] [place] [address] Dave Ortiz DO from Last 3 Months [...] Description 12/14/2024 1:30 PM EDT Routine [facility] [address] [place] [address] Dave Ortiz, DO [address] [facility] [place] [address] Health Maintenance Due Date Last Done Comments Influenza Vaccine (Season Ended) 2025 05/19/20 13, 04/29/2012 Pap Smear 09/11/2027 09/10/2024, 10/24/2022 Cervical Cancer Screening 10/25/2027 HPV/Cotest 10/25/2027 Goals Goal Patient Goal Type Associated Problems Recent Progress Patient-Stated? Author Reminders Care Plan OB Reminders No Open Scheduling, Background Procedures Procedure Name Priority Date/Time Associated Diagnosis Comments US OB BPP W NON-STRESS 12/08/2024 11:51 AM EDT US OB GROWTH 12/01/2024 11:12 AM EDT US OB BPP W NON-STRESS 12/01/2024 11:12 AM EDT POCT URINALYSIS DIPSTICK Routine 11/30/2024 2:02 PM EDT Third trimester ([facility]) US OB BPP W NON-STRESS 11/24/2024 9:42 AM EDT POCT URINALYSIS DIPSTICK Routine 11/23/2024 2:58 PM EDT Third trimester ([facility]) US OB BPP W NON-STRESS 11/17/2024 10:17 AM EDT POCT URINALYSIS DIPSTICK Routine 11/10/2024 10:32 AM EDT 33 weeks gestation of ([facility]) Third trimester ([facility]) US OB BPP W NON-STRESS 11/10/2024 10:08 AM EDT US OB BPP W NON-STRESS 11/06/2024 2:00 PM EDT US OB GROWTH 11/03/2024 4:34 PM EDT US OB BPP W NON-STRESS 11/03/2024 3:31 PM EDT ALL CBC WITH AUTO DIFF Routine 12:52 PM EDT [facility] CMP (CMP) (FOR REMOTE [facility] USE) Routine 10/26/2024 12:52 PM EDT POCT URINALYSIS DIPSTICK Routine 10/26/2024 11:52 AM EDT 30 weeks gestation of ([facility]) Third trimester ([facility]) US OB FOLLOW UP TRANSABDOMINAL APPROACH Routine 10/19/2024 11:56 AM EDT Nadia cisterna magna ([facility]) POCT URINALYSIS DIPSTICK Routine 10/12/2024 9:39 AM EDT Third trimester ([facility]) POCT URINALYSIS DIPSTICK Routine 09/14/2024 10:18 AM EDT 24 weeks gestation of ([facility]) RECURRENT VAGINITIS (HTRX) Routine 09/10/2024 12:23 PM EDT IGP,APTIMA HPV,AGE GDLN Routine 09/11/19 11:42 AM EDT PAP SMEAR Routine 09/10/2024 12:00 AM EDT from Last 3 Months Results * US OB BPP W NON-STRESS (12/08/2024 11:51 AM EDT) Only the most recent of7 resultswithin the time period is included. Anatomical Region Laterality Modality Other 12/08/2024 11:5 1 AM EDT Narrative 12/08/2024 11:54 AM EDT [address] [address] Ultrasound Report Signed Patient: ZULEIKA WYATT MR#: [id number] : 1990 Acct:[id number] Age/Sex: 34 / F ADM Date: 12/08/24 Loc: US Attending Dr: Dave Ortiz D.O. Ordering Physician: Dave Ortiz D.O. Date of Service: 12/08/24 Procedure(s): US OB BPP w non-stress Accession Number(s): [id number] cc: Dave Ortiz D.O.; Ramon Avila M.D. [address] [address] Patient Name: ZULEIKA WYATT MRN: [id number] date: 1990 Sex: F Assigned Patient Location: [facility] [place] [facility] [place]ion/Order Number: [id number] Exam Date: 12/08/2024 11:48 Report Date: 12/08/2024 11:51 At the request of: DAVE ORTIZ DO Procedure: US OB BPP w non-stress BIOPHYSICAL PROFILE: CLINICAL INFORMATION: Nadia cisterna magna Q04.9 COMPARISON: 12/01/2024 There is a single live intrauterine gestation in cephalic presentation. The reported gestational age is 37 weeks 0 days. The heart rate measures 129 beats per minute. A nuchal cord is again suspected. FINDINGS : TONE: 1 or more episodes of activity [...] greater than 2 cm [Y] 2/2 ANURAG: 14.8 cm. This is in upper normal range. Total score: 8/8 US/US OB BPP w non-stress IMPRESSION: NORMAL BIOPHYSICAL PROFILE. CONTINUED POSSIBLE NUCHAL CORD. Impression dictated by: Adela Mahan M.D. 12/08/2024 11:51 AM Dictation Location: [place] [address] Electronically authenticated by: [id number] Y Date: 12/08/2024 11:51 Dictated By: Adela Mahan M.D. Signed By: 12/08/24 1154 DD/ 1151 TD/TT: Policeman: Procedure Note Radiology, Radiologist, - 12/08/2024 [place] [address] Ultrasound Report Signed Patient: ZULEIKA WYATT LMR#: [id number] : 1990Acct:[id number] Age/Sex: 34 / FADM Date: 12/08/24 Loc: US Attending Dr: Dave Ortiz D.O. Ordering Physician: Dave Ortiz D.O. Date of Service: 12/08/24 Procedure(s): US OB BPP w non-stress Accession Number(s): [id number] cc: Dave Ortiz D.O.; Ramon Avila M.D. The [place] [id number] Patient Name: ZULEIKA WYATT MRN: [id number] date: 1990 Sex: F Assigned Patient Location: [facility] [place] [facility] [place]ion/Order Number: [id number] Exam Date: 12/08/2024 11:48 Report Date: 12/08/2024 11:51 At the request of: DAVE ORTIZ DO Procedure: US OB BPP w non-stress BIOPHYSICAL PROFILE: CLINICAL INFORMATION: Nadia cisterna magna Q04.9 COMPARISON: 12/01/2024 There is a single live intrauterine gestation in cephalic presentation.The reported gestational age is 37 weeks 0 days. The heart ratemeasures 129 beats per minute. A nuchal cord is again suspected. FINDINGS : TONE: 1 or more episodes of activity [...] greater than 2 cm [Y] 2/2 ANURAG: 14.8 cm. This is in upper normal range. Total score: 8/8 US/US OB BPP w non-stress IMPRESSION: NORMAL BIOPHYSICAL PROFILE. CONTINUED POSSIBLE NUCHAL CORD. Impression dictated by: Adela Mahan M.D. 12/08/2024 11:51 AM Dictation Location: [place] [address] Electronically authenticated by: [id number] Y Date: 1:51 Dictated By: Adela Mahan M.D. Signed By:12/08/24 1154 DD/ 1151 TD/TT: Policeman: us Daveroberto Ortiz DO [facility] IMAGING Final Result * US OB GROWTH (12/01/2024 11:12 AM EDT) Only the most recent of2 resultswithin the time period is included. Anatomical Region Laterality Modality Other 12/01/2024 11:1 2 AM EDT Narrative 12/01/2024 11:15 [place] [address] Ultrasound Report Signed Patient: ZULEIKA WYATT MR#: [id number] : 1990 Acct:[id number] Age/Sex: 34 / F ADM Date: 12/01/24 Loc: US Attending Dr: Dave Ortiz D.O. Ordering Physician: Dave Ortiz D.O. Date of Service: 12/01/24 Procedure(s): US OB growth Accession Number(s): [id number] cc: Dave Ortiz D.O.; Ramon Avila M.D. [address] [address] Patient Name: ZULEIKA WYATT MRN: [id number] date: 1990 Sex: F Assigned Patient Location: [facility] Current Patient Location: Accession/Order Number: [id number] Exam Date: 12/01/2024 11:04 Report Date: 12/01/2024 [...] Mahan M.D. 12/01/2024 11:12 AM Dictation Location: [place] [address] Electronically authenticated by: [id number] Y Date: 12/01/2024 11:12 Dictated By: Adela Mahan M.D. Signed By: 12/01/24 1115 DD/ 1112 TD/TT: Policeman: Procedure Note Radiology, Radiologist, - 12/01/2024 [place] [address] Ultrasound Report Signed Patient: ZULEIKA WYATT LMR#: [id number] : 1990Acct:[id number] Age/Sex: 34 / FADM Date: 12/01/24 Loc: US Attending Dr: Dave Ortiz D.O. Ordering Physician: Dave Ortiz D.O. Date of Service: 12/01/24 Procedure(s): US OB growth Accession Number(s): [id number] cc: Dave Ortiz D.O.; Ramon Avila M.D. [place] [id number] Patient Name: ZULEIKA WYATT MRN: [id number] date: 1990 Sex: F Assigned Patient Location: [facility] Current Patient Location: Accession/Order Number: [id number] Exam Date: 12/01/2024 11:04 Report Date: 12/01/2024 [...] Mahan M.D. 12/01/2024 11:12 AM Dictation Location: [place] [address] Electronically authenticated by: [id number] Y Date: 1:12 Dictated By: Adela Mahan M.D. Signed By:12/01/24 1115 DD/ 1112 TD/TT: Policeman: us Dave Diana DO [facility] Final [...] * (ABNORMAL) [facility] CMP (CMP) (FOR REMOTE [facility] USE) (10/26/2024 12:52 PM EDT) SODIUM 134(L) 136 - 145 mmol/L [facility] POTASSIUM 4.1 3.5 - 5.1 mmol/L [facility] CHLORIDE 102 98 - 107 mmol/L [facility] CARBON DIOXIDE 24.0 21.0 - 32.0 mmol/L [facility] ANION GAP 12.1 [facility] GLUCOSE 82 74 - 106 mg/dL [facility] BLOOD UREA NITROGEN 6.0(L) 7.0 - 18.0 mg/dL [facility] CREATININE 0.55 0.55 - 1.02 mg/dL TBH TBH EGFR-AF RWANDAN >60 >=60 mL/min/1. 73m 2 TBH TB[facility] EGFR-NON AF RWANDAN >60 >=60 mL/min/1. 73m 2 [facility] BUN [...] Narrative [facility] - 10/26/2024 1:29 PM EDT Dave Diana DO CLIN[facility] Final Result [facility] * (ABNORMAL) ALL CBC WITH AUTO [...] Dave Diana DO CL[facility] Final Result [facility] * US OB follow up transabdominal [...] at 21-Oct-2024 08:41:57 AM [facility] Procedure Note Eloisa Gonzalez MD - [...] signed by ELOISA GONZALEZ II, MD, PHD [id number] 08:41:57 AM [facility] us Dave Diana DO IMG OB US PROCEDURES Final Resul t * RECURRENT VAGINITIS (HTRX) (09/10/2024 12:23 PM EDT) Pathologist [facility] ATOPOBIUM VAGINAE 0.000 19.961 - 24.689 ppm 09/11/2024 6:30 AM EDT [facility] ATOPOBIUM VAGINAE Not Detected 19.961 - 24.689 ppm 09/11/2024 6:30 AM EDT [facility] BVAB 2,3 (BACTERIAL VAGINOSIS ASSOCIATED BACTERIA 2, 3); MOBILUNCUS SPP 0.000 19.961 - 24.689 ppm 09/11/2024 6:30 AM EDT [facility] BVAB 2,3 (BACTERIAL VAGINOSIS ASSOCIATED BACTERIA 2, 3); MOBILUNCUS SPP Not Detected 19.961 - 24.689 ppm 09/11/2024 6:30 AM EDT [facility] JEREMY ALBICANS, PARAPSILOSIS, TROPICALIS 0.000 19.961 - 30.770 ppm 09/11/2024 6:30 AM EDT [facility] JEREMY ALBICANS, PARAPSILOSIS, TROPICALIS Not Detected 19.961 - 30.770 ppm 09/11/2024 6:30 AM EDT [facility] JEREMY GLABRATA 0.000 23.000 - 32.138 ppm 09/11/2024 6:30 AM EDT [facility] JEREMY GLABRATA Not Detected 23.000 - 32.138 ppm 09/11/2024 6:30 AM EDT [facility] JEREMY KRUSEI 0.000 23.000 - 32.271 ppm 09/11/2024 6:30 AM EDT [facility] JEREMY KRUSEI Not Detected 23.000 - 32.271 ppm 09/11/2024 6:30 AM EDT [facility] CHLAMYDIA TRACHOMATIS 0.000 23.000 - 31.467 ppm 09/11/2024 6:30 AM EDT [facility] CHLAMYDIA TRACHOMATIS Not Detected 23.000 - 31.467 ppm 09/11/2024 6:30 AM EDT [facility] GARDNERELLA VAGINALIS 0.000 19.961 - 24.689 ppm 09/11/2024 6:30 AM EDT [facility] GARDNERELLA VAGINALIS Not Detected 19.961 - 24.689 ppm 09/11/2024 6:30 AM EDT [facility] MEGASPHAERA (TYPES 1, 2) 0.000 19.961 - 24.689 ppm 09/11/2024 6:30 AM EDT [facility] MEGASPHAERA (TYPES 1, 2) Not Detected 19.961 - 24.689 ppm 09/11/2024 6:30 AM EDT [facility] NEISSERIA GONORRHOEAE 0.000 23.000 - 32.117 ppm 09/11/2024 6:30 AM EDT [facility] NEISSERIA GONORRHOEAE Not Detected 23.000 - 32.117 ppm 09/11/2024 6:30 AM EDT [facility] TRICHOMONAS VAGINALIS 0.000 23.000 - 32.119 ppm 09/11/2024 6:30 AM EDT [facility] TRICHOMONAS VAGINALIS Not Detected 23.000 - 32.119 ppm 09/11/2024 6:30 AM EDT [facility] MYCOPLASMA GENITALIUM 0.000 19.961 - 24.689 ppm 09/11/2024 6:30 AM EDT [facility] MYCOPLASMA GENITALIUM Not Detected 19.961 - 24.689 ppm 09/11/2024 6:30 AM EDT [facility] Tissue 09/10/2024 12:2 3 PM EDT 09/11/2024 1:40 AM EDT us Dave Ortiz DO LAB BLOOD ORDERABLES Final Resul t [facility] [address] [place] [address] * IGP,APTIMA HPV,AGE GDLN (09/10/2024 11:42 AM EDT) AGE GDLN ACOG TESTING Note . [facility] Comment: TESTS RESULT FLAG UNITS REF RANGE LAB Clinician Provided Cytology Information Source.............[facility] Other.............. No. of containers..01 ThinPrep Vial Age Algo ACOG Krista... 30-65 01 FLAG LEGEND: L-Low Normal,H-High Normal,LL-Alert Low,HH-Alert High <-Panic Low,>-Panic High,A-Abnormal,AA-Critical Abnormal Performed at: 01 =G [facility] [place] [address] [place] [address] Joann Denney MD, IGP, APTIMA HPV, RFX 16/18,45 Note . [facility] Comment: TESTS RESULT FLAG UNITS REF RANGE LAB DIAGNOSIS: 02 NEGATIVE FOR INTRAEPITHELIAL LESION OR MALIGNANCY. Specimen adequacy: 02 Satisfactory for evaluation. No endocervical component is identified. An endocervical component is not commonly seen in the patient. Performed by: Diane Martel, Packing Attendant (ASCP) . 02 Note: Note 02 The [...] <-Panic Low,>-Panic High,A-Abnormal,AA-Critical Abnormal Performed at: [address] [address] Joann Denney MD, HPV APTIMA Negative Negative [facility] Comment: This nucleic acid amplification test detects fourteen high- risk HPV types (16,18,31,33,35,39,45,51,52,56,58,59,66,68) without differentiation. Performed at: = - [facility] [id number] Grey Washer: Joann Denney MD, Phone: [phone] Performed at: [facility] [id number] Grey Washer: Joann Denney MD, Phone: [phone] 09/10/2024 11:4 2 AM EDT 09/10/2024 3:18 PM EDT Narrative [facility] - 09/14/2024 12:08 PM EDT [facility] Dave Ortiz DO LAB BLOOD ORDERABLES Final Resul t Performing Organization Address [facility] Co de Phone Number [facility] * Pap Smear (09/10/2024 12:00 AM EDT) Swab Cervical swab / Unknown Dinaa Nurse [facility] Ob LAB CYTOLOGY ORDERABLES Final Result Performing Organization Address [facility] Co de Phone Number EXTERNAL LAB from Last 3 Months Additional Health Concerns Active Problems Noted Date Diagnosed Date OB Reminders 06/23/2024 Insurance * Guarantor: Zuleika Wyatt Account Type Relation to Patient Date of Phone Billing Address Personal/Family Self 1990 [address] [facility] [address] [place] [address] [facility] MEDICAID [place] Care Teams Road Inspector Relationship Specialty Start Date End Date Unallocated, [facility]oms Provider, [address] [place] [address] PCP - General 03/04/23 Jaime Wyatt PA [address] [place] [address] Referring Physician Physical Medicine and Rehabilitation 03/04/23
--- OUTSIDE RECORDS SUMMARY | 2024-12-11 10:19 | XMS_ITS | Encounter Summary ---
Author Organization [facility] Address [address] [facility] [place] [address] Care Team Providers Care Housekeeper Home Name Role Phone Yoselin Jaime FERMIN Unavailable Unallocated, [facility] Provider Primary Care Provi kwabena Encounter Details Date Type Department Care Team (Late st Contact Info) Description 06/26/2024 Abstract [facility] BCP OB [address] [place] [address] Cuong Ortiz, DO [address], [place] [address] Social History Tobacco Use Types Packs/Day Years [...] OB [address] [place] [address] Cuong Ortiz, DO [address], [...] documented as of this encounter Care Teams Housekeeper Home Relationship Specialty Start Date End Date Unallocated, Noms Provider, [address] [place], [place] [id number] PCP - General 03/04/23 Jaime Wyatt PA [address] [place] [address] Referring Physician Physical Medicine and Rehabilitation 03/04/23 documented as of this encounter
--- OUTSIDE RECORDS SUMMARY | 2024-12-11 10:19 | XMS_ITS | Encounter Summary ---
Author Organization [facility] Address [address] [place] [address] Care Team Providers Care Boat Puller Name Role Phone Yoselin Jaime FERMIN Unavailable Unallocated, Noms Provider Primary Care Provi kwabena Encounter Details Date Type Department Care Team (Late st Contact Info) Description 10/30/2023 Clinisync Result Encounter NOMS External Department Unsolicited Dave Ortiz, DO [facility] [place], [place] [address] Social History Tobacco Use Types Packs/Day Years [...] [facility]OMS BCP OB [address] [place] [phone] Dave Ortiz DO [facility] [place] [address] documented as of this encounter Procedures Procedure Name Priority Date/Time Associated Diagnosis Comments US OB BPP W NON-STRESS 10/30/2023 3:23 PM EDT documented in this encounter Results * US OB BPP W NON-STRESS (10/30/2023 3:23 PM EDT) Anatomical Region Laterality Modality Other 10/30/2023 3:23 PM EDT Narrative 10/30/2023 3:25 [place] [address] Ultrasound Report Signed Patient: ZULEIKA WADDELL MR#: [id number] : 1990 Acct:[id number] Age/Sex: 33 / F ADM Date: 10/30/23 Loc: US Attending Dr: Dave Ortiz D.O. Ordering Physician: Dave Ortiz D.O. Date of Service: 10/30/23 Procedure(s): US OB BPP w non-stress Accession Number(s): [id number] cc: Dave Ortiz D.O.; Jaime Waddell [place] [address] Patient Name: ZULEIKA WADDELL MRN: [id number] date: 1990 Sex: F Assigned Patient Location: [facility] Current Patient Location: Accession/Order Number: [id number] Exam Date: 10/30/2023 14:45 Report Date: 10/30/2023 [...] Signed By: 10/30/23 1525 DD/ 22 TD/TT: Lathe Scalper Operator: Procedure Note Radiology, Radiologist, - 10/30/2023 [place] [address] Ultrasound Report Signed Patient: ZULEIKA WADDELL LMR#: [id number] : 1990Acct:[id number] Age/Sex: 33 / FADM Date: 10/30/23 Loc: US Attending Dr: Dave Ortiz D.O. Ordering Physician: Dave Ortiz D.O. Date of Service: 10/30/23 Procedure(s): US OB BPP w non-stress Accession Number(s): [id number] cc: Dave Ortiz D.O.; Jaime Waddell [place] [address] Patient Name: ZULEIKA WADDELL MRN: [id number] date: 1990 Sex: F Assigned Patient Location: [facility] Current Patient Location: Accession/Order Number: [id number] Exam Date: 10/30/2023 14:45 Report Date: 10/30/2023 [...] M.D. Signed By:10/30/23 152 DD/ 22 TD/TT: Lathe Scalper Operator: us Dave Diana DO [facility] Final Result documented in this encounter Visit Diagnoses Not on filedocumented in this encounter Care Teams Boat Puller Relationship Specialty Start Date End Date Unallocated, Noms Provider, [address] [place] [address] PCP - General 03/04/23 Jaime Waddell PA [address] [place] [address] Referring Physician Physical Medicine and Rehabilitation 03/04/23 documented as of this encounter
--- OUTSIDE RECORDS SUMMARY | 2024-12-11 10:19 | XMS_ITS | Encounter Summary ---
Author Organization [facility] Address [address] [facility] [place] [address] Care Team Providers Care Senior Manufacturing Supervisor Name Role Phone Yoselin Jaime FERMIN Unavailable Unallocated, Noms Provider Primary Care Provi kwabena Encounter Details Date Type Department Care Team (Late st Contact Info) Description 10/10/2023 Clinisync Result Encounter NOMS External Department Unsolicited Dave Ortiz, [facility] [place], [place] [address] Social History Tobacco Use Types Packs/Day Years [...] NOMS BCP OB [address] [place] [phone] Dave Ortiz DO [facility] [place] [address] documented as of this encounter Procedures Procedure Name Priority Date/Time Associated Diagnosis Comments US OB GROWTH 10/10/2023 7:18 AM EDT documented in this encounter Results * US OB GROWTH (10/10/2023 7:18 AM EDT) Anatomical Region Laterality Modality Other 10/10/2023 7:18 AM EDT Narrative 10/10/2023 7:21 [place] [address] Ultrasound Report Signed Patient: ZULEIKA WADDELL MR#: [id number] : 1990 Acct:[id number] Age/Sex: 33 / F ADM Date: 10/09/23 Loc: US Attending Dr: Dave Ortiz D.O. Ordering Physician: Dave Ortiz D.O. Date of Service: 10/09/23 Procedure(s): US OB growth Accession Number(s): [id number] cc: Dave Ortiz D.O.; Jaime Waddell [place] [address] Patient Name: ZULEIKA WADDELL MRN: [id number] date: 1990 Sex: F Assigned Patient Location: [facility] Current Patient Location: US Accession/Order Number: [id number] Exam Date: 10/09/2023 15:20 Report Date: 10/10/2023 [...] M.D. Signed By: 10/10/23720 DD/ 7 TD/TT: Maintenance Of Way Superintendent: Procedure Note Radiology, Radiologist, MD - 10/10/2023 [place] [address] Ultrasound Report Signed Patient: ZULEIKA WADDELL LMR#: [id number] : 1990Acct:[id number] Age/Sex: 33 / FADM Date: 10/09/23 Loc: US Attending Dr: Dave Ortiz D.O. Ordering Physician: Dave Ortiz D.O. Date of Service: 10/09/23 Procedure(s): US OB growth Accession Number(s): [id number] cc: Dave Ortiz D.O.; Jaime Waddell [place] [address] Patient Name: ZULEIKA WADDELL MRN: [id number] date: 1990 Sex: F Assigned Patient Location: [facility] Current Patient Location: US Accession/Order Number: [id number] Exam Date: 10/09/2023 15:20 Report Date: 10/10/2023 [...] Dawn M.D. Signed By:10/10/23720 DD/ 7 TD/TT: Maintenance Of Way Superintendent: us Dave Diana DO [facility] Final Result documented in this encounter Visit Diagnoses Not on filedocumented in this encounter Care Teams Senior Manufacturing Supervisor Relationship Specialty Start Date End Date Unallocated, Noms Prakash, [address] [place] [address] PCP - General 03/04/23 Jaime Waddell PA [address] [place], [place] [phone] Referring Physician Physical Medicine and Rehabilitation 03/04/23 documented as of this encounter
--- OUTSIDE RECORDS SUMMARY | 2024-12-11 10:19 | XMS_ITS | Encounter Summary ---
Author Organization [facility] Address [address] [facility] [place] [address] Care Team Providers Care Bolting Machine Operator Name Role Phone Yoselin Jaime FERMIN Unavailable Unallocated, Noms Provider Primary Care Provi kwabena Encounter Details Date Type Department Care Team (Late st Contact Info) Description 10/10/2023 Clinisync Result Encounter NOMS External Department Unsolicited Dave Ortiz, DO [facility] [place], [place] [address] Social History Tobacco Use Types Packs/Day Years [...] NOMS BCP OB [address] [place] [phone] Dave Ortiz DO [facility] [place] [address] documented as of this encounter Procedures Procedure Name Priority Date/Time Associated Diagnosis Comments US OB BPP W NON-STRESS 10/10/2023 7:13 AM EDT documented in this encounter Results * US OB BPP W NON-STRESS (10/10/2023 7:13 AM EDT) Anatomical Region Laterality Modality Other 10/10/2023 7:13 AM EDT Narrative 10/10/2023 7:15 [place] [address] Ultrasound Report Signed Patient: ZULEIKA WADDELL MR#: [id number] : 1990 Acct:[id number] Age/Sex: 33 / F ADM Date: 10/09/23 Loc: US Attending Dr: Dave Ortiz D.O. Ordering Physician: Dave Ortiz D.O. Date of Service: 10/09/23 Procedure(s): US OB BPP w non-stress Accession Number(s): [id number] cc: Dave Ortiz D.O.; Jaime Waddell [place] [address] Patient Name: ZULEIKA WADDELL MRN: [id number] date: 1990 Sex: F Assigned Patient Location: US Current Patient Location: US Accession/Order Number: [id number] Exam Date: 10/09/2023 15:20 Report Date: 10/10/2023 [...] M.D. Signed By: 04/714 DD/ 2 TD/TT: Corporate Recruiter: Procedure Note Radiology, Radiologist, - 10/10/2023 [place] [address] Ultrasound Report Signed Patient: ZULEIKA WADDELL LMR#: [id number] : 1990Acct:[id number] Age/Sex: 33 / FADM Date: 10/09/23 Loc: US Attending Dr: Dave Ortiz D.O. Ordering Physician: Dave Ortiz D.O. Date of Service: 10/09/23 Procedure(s): US OB BPP w non-stress Accession Number(s): [id number] cc: Dave Ortiz D.O.; Jaime Waddell The [place] [phone] Patient Name: ZULEIKA WADDELL MRN: [id number] date: 1990 Sex: F Assigned Patient Location: US Current Patient Location: US Accession/Order Number: [id number] Exam Date: 10/09/2023 15:20 Report Date: 10/10/2023 [...] Dawn M.D. Signed By:10/10/23714 DD/ 2 TD/TT: Corporate Recruiter: us Dave Ortiz DO [facility] Final Result documented in this encounter Visit Diagnoses Not on filedocumented in this encounter Care Teams Bolting Machine Operator Relationship Specialty Start Date End Date Unallocated, Noms Provider, [address] [place] [address] PCP - General 03/04/23 Jaime Waddell PA [address] [place] [address] Referring Physician Physical Medicine and Rehabilitation 03/04/23 documented as of this encounter
--- OUTSIDE RECORDS SUMMARY | 2024-12-11 10:19 | XMS_ITS | Encounter Summary ---
Author Organization [facility] Address [address] [facility] [address] Care Team Providers Care Electroplater Automatic Name Role Phone Jaime Wyatt Unavailable Unallocated, Noms Provider Primary Care Provi kwabena Encounter Details Date Type Department Care Team (Late st Contact Info) Description 11/07/2023 Abstract [facility] BCP OB [address] [facility] [address] Cuong Ortiz DO [facility] [place], [place] [address] Social History Tobacco Use Types Packs/Day Years [...] [place] [address] Cuong Ortiz DO [facility] [place], [facility]11 documented as of this encounter Visit Diagnoses Not on filedocumented in this encounter Care Teams Electroplater Automatic Relationship Specialty Start Date End Date Unallocated, Noms Provider, [address] [place], [place] [address] PCP - General 03/04/23 Jaime Wyatt PA [address] [place], [place] [address] Referring Physician Physical Medicine and Rehabilitation 03/04/23 documented as of this encounter
--- OUTSIDE RECORDS SUMMARY | 2024-12-11 10:19 | XMS_ITS | Encounter Summary ---
Author Organization [facility] Address [address] [facility] [place] [address] Care Team Providers Care Office Coordinator Receptionist Name Role Phone Yoselin Jaime FERMIN Unavailable Unallocated, Noms Provider Primary Care Provi kwabena Encounter Details Date Type Department Care Team (Late st Contact Info) Description 05/19/2024 Clinisync Result Encounter NOMS External Department Unsolicited Dave Ortiz, [facility] [place], [place] [address] Social History Tobacco Use Types Packs/Day Years [...] Routine NOMS BCP OB [address] [place] [phone] Dave Ortiz DO [facility] [place] [address] documented as of this encounter Procedures Procedure Name Priority Date/Time Associated Diagnosis Comments US OB TRANSVAGINAL 05/19/2024 7: 24 AM EST documented in this encounter Results * US OB TRANSVAGINAL (05/19/2024 7:24 AM EST) Anatomical Region Laterality Modality Other 05/19/2024 7:24 AM EST Narrative 05/19/2024 7:27 [place] [address] Ultrasound Report Signed Patient: ZULEIKA WADDELL MR#: [id number] : 1990 Acct:[id number] Age/Sex: 34 / F ADM Date: 05/18/24 Loc: US Attending Dr: Dave Ortiz D.O. Ordering Physician: Dave Ortiz D.O. Date of Service: 05/18/24 Procedure(s): US OB transvaginal Accession Number(s): [id number] cc: Dave Ortiz D.O.; YoselinJaime [place] [address] Patient Name: ZULEIKA WADDELL MRN: [id number] date: 1990 Sex: F Assigned Patient Location: US Current Patient Location: Accession/Order Number: [id number] Exam Date: 05/18/2024 17:15 Report Date: 05/19/2024 [...] M.D. Signed By: 05/19/24726 DD/ 3 TD/TT: Antique Clocks Repairer: Procedure Note Radiology, Radiologist, - 05/19/2024 [place] [address] Ultrasound Report Signed Patient: ZULEIKA WADDELL LMR#: [id number] : 1990Acct:[id number] Age/Sex: 34 / FADM Date: 05/18/24 Loc: US Attending Dr: Dave Ortiz D.O. Ordering Physician: Dave Ortiz D.O. Date of Service: 05/18/24 Procedure(s): US OB transvaginal Accession Number(s): [id number] cc: Dave Ortiz D.O.; Jaime Waddell [place] [phone] Patient Name: ZULEIKA WADDELL MRN: [id number] date: 1990 Sex: F Assigned Patient Location: US Current Patient Location: Accession/Order Number: [id number] Exam Date: 05/18/2024 17:15 Report Date: 05/19/2024 [...] Crump M.D. Signed By:05/19/24726 DD/ 3 TD/TT: Antique Clocks Repairer: us Dave Diana DO [facility] Final Result documented in this encounter Visit Diagnoses Not on filedocumented in this encounter Care Teams Office Coordinator Receptionist Relationship Specialty Start Date End Date Unallocated, Noms Provider, [address] [place] [address] PCP - General 03/04/23 Jaime Waddell PA [address] [place] [address] Referring Physician Physical Medicine and Rehabilitation 03/04/23 documented as of this encounter
--- OUTSIDE RECORDS SUMMARY | 2024-12-11 10:19 | XMS_ITS | Encounter Summary ---
Author Organization [facility] Address [address] [facility] [place] [address] Care Team Providers Care Grinder Hand Name Role Phone Yoselin Jaime FERMIN Unavailable Unallocated, Noms Provider Primary Care Provi kwabena Encounter Details Date Type Department Care Team (Late st Contact Info) Description 11/06/2023 Clinisync Result Encounter NOMS External Department Unsolicited Dave Ortiz, [facility] [place], [place] [address] Social History Tobacco Use Types Packs/Day Years [...] [facility]OMS BCP OB [address] [place] [phone] Dave Ortiz DO [facility] [place] [address] documented as of this encounter Procedures Procedure Name Priority Date/Time Associated Diagnosis Comments US OB GROWTH 11/06/2023 3:54 PM EDT documented in this encounter Results * US OB GROWTH (11/06/2023 3:54 PM EDT) Anatomical Region Laterality Modality Other 11/06/2023 3:54 PM EDT Narrative 11/06/2023 3:57 [place] [address] Ultrasound Report Signed Patient: ZULEIKA WADDELL MR#: [id number] : 1990 Acct:[id number] Age/Sex: 33 / F ADM Date: 11/06/23 Loc: US Attending Dr: Dave Ortiz D.O. Ordering Physician: Dave Ortiz D.O. Date of Service: 11/06/23 Procedure(s): US OB growth Accession Number(s): [id number] cc: Dave Ortiz D.O.; Jaime Waddell [place] [address] Patient Name: ZULEIKA WADDELL MRN: [id number] date: 1990 Sex: F Assigned Patient Location: US Current Patient Location: Accession/Order Number: [id number] Exam Date: 11/06/2023 14:19 Report Date: 11/06/2023 [...] M.D. Signed By: 11/06/231556 DD/ 53 TD/TT: Aluminum Boat Assembly Supervisor: Procedure Note Radiology, Radiologist, MD - 11/06/2023 [place] [address] Ultrasound Report Signed Patient: ZULEIKA WADDELL LMR#: [id number] : 1990Acct:[id number] Age/Sex: 33 FADM Date: 11/06/23 Loc: US Attending Dr: Dave Ortiz D.O. Ordering Physician: Dave Ortiz D.O. Date of Service: 11/06/23 Procedure(s): US OB growth Accession Number(s): [id number] cc: Dave Ortiz D.O.; Jaime Waddell The [place] [address] Patient Name: ZULEIKA WADDELL MRN: [id number] date: 1990 Sex: F Assigned Patient Location: US Current Patient Location: Accession/Order Number: [id number] Exam Date: 11/06/2023 14:19 Report Date: 11/06/2023 [...] M.D. Signed By:11/06/23 1557 DD/ 53 TD/TT: Aluminum Boat Assembly Supervisor: us Dave Diana DO [facility] Final Result documented in this encounter Visit Diagnoses Not on filedocumented in this encounter Care Teams Grinder Hand Relationship Specialty Start Date End Date Unallocated, Noms Provider, [address] [place], [place] [address] PCP - General 03/04/23 Jaime Waddell PA [address] [place], [place] [address] Referring Physician Physical Medicine and Rehabilitation 03/04/23 documented as of this encounter
--- OUTSIDE RECORDS SUMMARY | 2024-12-11 10:19 | XMS_ITS | Encounter Summary ---
Author Organization [facility] Address [address] [facility] [place] [address] Care Team Providers Care Lumber Stacker Operator Name Role Phone Jaime Wyatt Unavailable Unallocated, Noms Provider Primary Care Provi kwabena Encounter Details Date Type Department Care Team (Late st Contact Info) Description 12/13/2023 Abstract [facility]CP [facility] [address] [facility] [place] [address] Destinee Vazquez LPN [address] [employer] [place] [address] Social History Tobacco Use Types Packs/Day Years [...] PM EDT Routine [facility]OMS BCP OB [address] [facility] [place] [address] Cuong Ortiz DO [address] [facility] [address] [place], [place] [address] documented as of this encounter Visit Diagnoses Not on filedocumented in this encounter Care Teams Lumber Stacker Operator Relationship Specialty Start Date End Date Unallocated, Noms Provider, [address] [place], [place] [address] PCP - General 03/04/23 Jaime Wyatt PA [address] [place], [place] [address] Referring Physician Physical Medicine and Rehabilitation 03/04/23 documented as of this encounter
--- OUTSIDE RECORDS SUMMARY | 2024-12-11 10:19 | XMS_ITS | Encounter Summary ---
Author Organization [facility] Address [address] [facility] [place] [address] Care Team Providers Care Clarifier Operator Helper Name Role Phone Yoselin Jaime FERMIN Unavailable Unallocated, Noms Provider Primary Care Provi kwabena Encounter Details Date Type Department Care Team (Late st Contact Info) Description 06/30/2024 Abstract NOMS BCP OB [address] [place] [address] Cuong Ortiz, DO [address] [place], [place] [address] Social History Tobacco Use Types Packs/Day Years [...] Routine NOMS BCP OB [address] [place] [address] Cuong Ortiz, DO [address] [place], [facility]11 documented as of this encounter Goals Goal Patient Goal Type Associated Problems Recent Progress Patient-Stated? Author Reminders Care Plan OB Reminders No Open Scheduling, Background documented as of this encounter Visit Diagnoses Not on filedocumented in this encounter Additional Health Concerns Active Problems Noted Date Diagnosed Date OB Reminders 06/23/2024 documented as of this encounter Care Teams Clarifier Operator Helper Relationship Specialty Start Date End Date Unallocated, Noms Provider, [address] [place], [place] [address] PCP - General 03/04/23 Jaime Wyatt PA [address] [place] [address] Referring Physician Physical Medicine and Rehabilitation 03/04/23 documented as of this encounter
--- OUTSIDE RECORDS SUMMARY | 2024-12-11 10:19 | XMS_ITS | Encounter Summary ---
Author Organization [facility] Address [address] [facility] [place] [address] Care Team Providers Care Carrot Grader Inspector Name Role Phone Jaime Wyatt Unavailable Unallocated, Noms Provider Primary Care Provi kwabena Encounter Details Date Type Department Care Team (Late st Contact Info) Description 11/18/2023 Abstract [facility] BCP OB [address] [facility] [place] [address] Destinee Vazquez LPN [address] [facility] [place] [address] Social History Tobacco Use Types Packs/Day Years [...] PM EDT Routine NOMS BCP OB [address] [facility] [place] [address] Cuong Ortiz DO [address] [facility] [address] [place] [facility] documented as of this encounter Visit Diagnoses Not on filedocumented in this encounter Care Teams Carrot Grader Inspector Relationship Specialty Start Date End Date Unallocated, Noms Provider, [address] [place], [place] [address] PCP - General 03/04/23 Jaime Wyatt PA [address] [place], [place] [phone] Referring Physician Physical Medicine and Rehabilitation 03/04/23 documented as of this encounter
--- OUTSIDE RECORDS SUMMARY | 2024-12-11 10:19 | XMS_ITS | Encounter Summary ---
Author Organization [facility] Address [address] [facility] [place] [address] Care Team Providers Care Commissioned Sales Associate Name Role Phone Yoselin Jaime FERMIN Unavailable Unallocated, Noms Provider Primary Care Provi kwabena Encounter Details Date Type Department Care Team (Late st Contact Info) Description 10/21/2023 Clinisync Result Encounter NOMS External Department Unsolicited Dave Ortiz, DO [facility] [place], [place] [address] Social History Tobacco Use Types Packs/Day Years [...] NOMS BCP OB [address] [place] [address] Dave Ortiz DO [facility] [place] [address] documented as of this encounter Procedures Procedure Name Priority Date/Time Associated Diagnosis Comments US OB BPP W NON-STRESS 10/21/2023 7:34 AM EDT documented in this encounter Results * US OB BPP W NON-STRESS (10/21/2023 7:34 AM EDT) Anatomical Region Laterality Modality Other 10/21/2023 7:34 AM EDT Narrative 10/21/2023 7:37 [place] [address] Ultrasound Report Signed Patient: ZULEIKA WADDELL MR#: [id number] : 1990 Acct:[id number] Age/Sex: 33 / F ADM Date: 10/19/23 Loc: FBOR Attending Dr: Dave Ortiz D.O. Ordering Physician: Dave Ortiz D.O. Date of Service: 10/19/23 Procedure(s): US OB BPP w non-stress Accession Number(s): [id number] cc: Dave Ortiz D.O.; Jaime Waddell [place] [address] Patient Name: ZULEIKA WADDELL MRN: [id number] date: 1990 Sex: F Assigned Patient [place] [facility] Current Patient Location: [facility] Accession/Order Number: [id number] Exam Date: 10/19/2023 14:53 Report Date: 10/21/2023 [...] M.D. Signed By: 0537 DD/ 3 TD/TT: Sustainable Landscape Architect: Procedure Note Radiology, Radiologist, - 10/21/2023 The [place] [id number] Ultrasound Report Signed Patient: ZULEIKA WADDELL LMR#: [id number] : 1990Acct:[id number] Age/Sex: 33 / FADM Date: 10/19/23 Loc: [facility]BCO Attending Dr: Dave Ortiz D.O. Ordering Physician: Dave Ortiz D.O. Date of Service: 10/19/23 Procedure(s): US OB BPP w non-stress Accession Number(s): [id number] cc: Dave Ortiz D.O.; Jaime Waddell [place] [phone] Patient Name: ZULEIKA WADDELL MRN: [facility]:[id number] date: 1990 Sex: F Assigned Patient Location: [facility] Current Patient Location: [facility] Accession/Order Number: [id number] Exam Date: 10/19/2023 14:53 Report Date: 10/21/2023 [...] M.D. Signed By:10/21/23 0737 DD/ 3 TD/TT: Sustainable Landscape Architect: us Dave Ortiz DO [facility] Final Result documented in this encounter Visit Diagnoses Not on filedocumented in this encounter Care Teams Commissioned Sales Associate Relationship Specialty Start Date End Date Unallocated, Noms Provider, [address] [place] [address] PCP - General 03/04/23 Jaime Waddell PA [address] [place], [place] [address] Referring Physician Physical Medicine and Rehabilitation 03/04/23 documented as of this encounter
--- OUTSIDE RECORDS SUMMARY | 2024-12-11 10:20 | XMS_ITS | Encounter Summary ---
Author Organization [facility] Address [address] [facility] [place] [address] Care Team Providers Care Manager Express Name Role Phone Yoselin Jaime FERMIN Unavailable Unallocated, Noms Provider Primary Care Provi kwabena Encounter Details Date Type Department Care Team (Late st Contact Info) Description 11/17/2024 Abstract [facility] OB [address] [place] [address] Cuong Ortiz DO [facility] [address] [place], [place] [address] Social History Tobacco Use Types Packs/Day Years [...] Routine [facility] B[facility] OB [address] [place] [address] Cuong Ortiz DO [address] [place] [address] [place] [address] documented as of this encounter Goals Goal Patient Goal Type Associated Problems Recent Progress Patient-Stated? Author Reminders Care Plan OB Reminders No Open Scheduling, Background documented as of this encounter Visit Diagnoses Not on filedocumented in this encounter Additional Health Concerns Active Problems Noted Date Diagnosed Date OB Reminders 06/23/2024 documented as of this encounter Care Teams Manager Express Relationship Specialty Start Date End Date Unallocated, Noms Provider, [address] [place] [address] PCP - General 03/04/23 Jaime Wyatt PA [address] [place] [address] Referring Physician Physical Medicine and Rehabilitation 03/04/23 documented as of this encounter
--- OUTSIDE RECORDS SUMMARY | 2024-12-11 10:20 | XMS_ITS | Encounter Summary ---
Author Organization [facility] Address [address] [place] [address] Care Team Providers Care Public Works Manager Name Role Phone Yoselin Jaime FERMIN Unavailable Unallocated, Noms Provider Primary Care Provi kwabena Encounter Details Date Type Department Care Team (Late st Contact Info) Description 12/10/2024 Patient Outreach [facility] [address] [facility] [phone] Elena Felix LPN [address] [place] [address] Social History Tobacco Use Types Packs/Day Years [...] on file documented as of this encounter Functional Status * Over the [...] Progress Notes * Elena Felix LPN - 12/10/2024 3:43 PM EDT Monthly Outreach. Call to pt., Pt report she feels baby moving frequently. Appetite and sleep are adequate although sleep is interrupted. Bowels are regular. Pt denies depression or difficulty copingat this time. Pt reports she is 3cm dilated and feels a lot of pressure. She has no questions, concerns or needs today. Meds reconciled, Next OB OV 12/14/2024 documented in this encounter Plan of Treatment Upcoming Encounters Date Type Department Care Team (Late st Contact Info) Description 12/14/2024 1:30 PM EDT Routine [facility] OB [address] [facility] [place] [phone] Cuong Ortiz, DO [address] [place] [address] documented as of this encounter Goals Goal Patient Goal Type Associated Problems Recent Progress Patient-Stated? Author Reminders Care Plan OB Reminders No Open Scheduling, Background documented as of this encounter Visit Diagnoses Not on filedocumented in this encounter Additional Health Concerns Active Problems Noted Date Diagnosed Date OB Reminders 06/23/2024 documented as of this encounter Care Teams Public Works Manager Relationship Specialty Start Date End Date Unallocated, Noms Provider, [address] [place] [address] PCP - General 03/04/23 Jaime Wyatt PA [address] [place], [place] [phone] Referring Physician Physical Medicine and Rehabilitation 03/04/23 documented as of this encounter
--- OUTSIDE RECORDS SUMMARY | 2024-12-11 10:20 | XMS_ITS | Encounter Summary ---
Author Organization [facility] Address [address] [facility] [place] [address] Care Team Providers Care Replanting Machine Operator Name Role Phone YoselinJaime FERMIN Unavailable Unallocated, Noms Provider Primary Care Provi kwabena Encounter Details Date Type Department Care Team (Late Contact Info) Description 11/30/2024 Bamboo flowsheet [facility] OB [address] [place] [address] Cuong Ortiz DO [facility] [place] [address] Social History Tobacco Use Types Packs/Day Years [...] Department Care Team (Late Contact Info) Description 12/14/2024 1:30 PM EDT Routine [facility] BCP OB [address] [place] [address] Cuong Ortiz DO [address] [place] [address] documented as of this encounter Goals Goal Patient Goal Type Associated Problems Recent Progress Patient-Stated? Author Reminders Care Plan OB Reminders No Open Scheduling, Background documented as of this encounter Visit Diagnoses Not on filedocumented in this encounter Additional Health Concerns Active Problems Noted Date Diagnosed Date OB Reminders 06/23/2024 documented as of this encounter Care Teams Replanting Machine Operator Relationship Specialty Start Date End Date Unallocated, Noms Provider, [address] [place] [address] PCP - General 03/04/23 Jaime Wyatt PA [address] [place] [address] Referring Physician Physical Medicine and Rehabilitation 03/04/23 documented as of this encounter
--- OUTSIDE RECORDS SUMMARY | 2024-12-11 10:20 | XMS_ITS | Encounter Summary ---
Author Organization [facility] Address [address] [place] [address] Care Team Providers Care Dye House Helper Name Role Phone Unavailable Primary Care Provider Unavailabl e Source Comments In the event this information is protected by the Federal Confidentiality of Alcohol and Drug AbusePatient Records regulations: The Federal rules restrict any use of the information to criminally investigate or prosecute any alcohol or drug abuse patient.[facility] Encounter Details Date Type Department Care Team (Late st Contact Info) Description 02/10/2022 Lab Requisition [facility] [address] [place] [address] Eleazar Hess PA-C [address] [facility] [place] [id number] Social History Tobacco Use Types Packs/Day Years [...] Report SEE NOTE 02/22/2022 1:25 PM EDT [employer] Comment: Finegoldia magna Organism identified by client [...] caution. REKHA M Beta-Lactamase Neg Performed by [facility], [address] [place] [address] [email or web address], Piero Beaver MD, PHD, Lab. Director Micro Specimen SPECIMEN FROM ABSCESS / Unknown 02/05/2022 8:00 PM EDT 02/10/2022 3:57 PM EDT Eleazar Hess PA-C LABORATORY Final Result [employer] [address] [place] [address] * (ABNORMAL) ORGANISM TARYN (02/05/2022 8:00 PM EDT) Culture, Organism TARYN Result Finegoldia magna(A) MINIMUM INHIBITORY CONCENTRATION ([place]) 02/24/2022 2:08 PM EDT [facility] Micro Specimen SPECIMEN FROM ABSCESS / Unknown 02/05/2022 8:00 PM EDT 02/10/2022 3:57 PM EDT Narrative [facility] - 02/24/2022 2:08 PM EDT Susceptibility results have been completed by [facility]. us Eleazar Hess PA-C LABORATORY Final Result Performing Organization Address City/[facility]/ZIP Co de Phone Number [facility] [address] [address], [place] * (ABNORMAL) ORGANISM ID ANAEROBE (02/05/2022 8:00 PM EDT) Culture, Organism ID Anaerobe Finegoldia magna(A) 02/16/2022 3:33 PM EDT [facility] Micro Specimen SPECIMEN FROM ABSCESS / Unknown 02/05/2022 8:00 PM EDT 02/10/2022 3:57 PM EDT us Eleazar Hess PA-C LABORATORY Final Result Performing Organization Address [facility]/ZIP Co de Phone Number [facility] [address] [address], [place] documented in this encounter Visit Diagnoses Not on filedocumented in this encounter
--- OUTSIDE RECORDS SUMMARY | 2024-12-11 10:20 | XMS_ITS | Encounter Summary ---
Author Organization [facility] Address [address] [facility] [place] [address] Care Team Providers Care Mission Systems Engineer Name Role Phone WyattJaime FERMIN Unavailable Unallocated, Noms Provider Primary Care Provi kwabena Encounter Details Date Type Department Care Team (Late st Contact Info) Description 09/29/2024 Orders Only [facility] OB [address] [place] [address] Destinee Vazquez LPN [address] [facility] [place] [address] Social History Tobacco Use Types Packs/Day Years [...] PM EDT Routine [facility] BCP OB [address] [place] [address] Cuong Ortiz, DO [address] [place] [address] documented as of this encounter Goals Goal [...] documented as of this encounter Care Teams Mission Systems Engineer Relationship Specialty Start Date End Date Unallocated, Noms Provider, [address] [place] [address] PCP - General 03/04/23 Jaime Wyatt PA [address] [place], [place] [phone] Referring Physician Physical Medicine and Rehabilitation 03/04/23 documented as of this encounter
--- OUTSIDE RECORDS SUMMARY | 2024-12-11 10:20 | XMS_ITS | Clinical Summary ---
Author Organization [facility] tem Address [id number] [address] 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); Christiano cisterna magna (CMS-HCC) - 11/16/2024 12:43 PM EDT - 11/16/2024 11:59 PM EDT Hospital Encounter [facility] - [facility] US Imaging [address] [place] [address] Supervision of high risk , antepartum Discharge Disposition: Home 11/16/2024 Travel 09/28/2024 2:00 PM EDT Office Visit Maternal- Medicine at [facility] [address] [place] [address] Trav Macdonald MD Christiano cisterna magna (CMS-HCC) - (Primary Dx); Nodular heterotopia (CMS-HCC) - ; 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 Anatomical Region Laterality Modality OB-COVER MACHINE OPERATOR Ultrasound 11/16/2024 1:48 PM EDT Narrative 11/16/2024 3:25 PM EDT NAME: YOSELIN TO : 1990 SEX: F Accession Number: [id number] ORDERING PHYSICIAN: TRAV MACDONALD REFERRING PHYSICIAN: DAVE CUELLAR Coding ----- --------- Procedures 60622: Follow-up Ultrasound, per fetus [address]2220: Echocardiography, , cardiovascular system, real time with [...] ----- --------- OB History 7. Para 4 [id number] Current ----- --------- Cell free DNA Low [...] EFW (oz) 14 oz EFW by: Hadlock (DRH-PS-JI-FL) Extended Tibia 58.9 mm 34w 3d 81% Gurdeep Burlap Worker 6.0 mm CM 14.6 mm Head / [...] Cerebellum. Face: Lips. Nose. Heart/Thorax: 4-chamber view. 8-keeccj-phkwkqk view. Great vessels. Diaphragm. Abdomen: Stomach. Kidneys. [...] view documented previously 3-vessel view documented previously 3-ryvxpi-gysnvxm view normal Aortic arch view documented previously [...] Recommendations ----- --------- Please see follow up [facility] documentation from today's encounter. Results forwarded to ordering provider so they can follow up with the patient as necessary. Subsequent follow up or other follow up as clinically determined by primary OB provider unless otherwise specified by MFM. Procedure Note Trav Macdonald MD - 11/16/2024 NAME: YOSELIN TO : 1990 SEX: F Accession Number: [id number] ORDERING PHYSICIAN: TRAV MACDONALD REFERRING PHYSICIAN: DAVE CUELLAR Coding ----- --------- Procedures 79658: Follow-up Ultrasound, per fetus [address]7571: Echocardiography, , cardiovascular system, real timewith image documentation (2D), with or without M-mode recording; follow-up or repeat study Indication ----- --------- Screening for follow-up survey, Chronic hypertension affecting ,History of prior with delivery, Supervision of high risk - MOB alcohol syndrome, T13 inprev , MOB club foot, christiano cisterna magna, 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 Para 4 [id number] Current ----- --------- Cell free DNA Low [...] EFW (oz) 14 oz EFW by: Hadlock (NSX-LW-GP-FL) Extended Tibia 58.9 mm 34w 3d 81% Gurdeep Burlap Worker 6.0 mm CM 14.6 mm Head / [...] Cerebellum. Face: Lips. Nose. Heart/Thorax: 4-chamber view. 5-shlmcw-kicctnd view. Great vessels. Diaphragm. Abdomen: Stomach. Kidneys. [...] view documented previously 3-vessel view documented previously 4-wenerf-zzkihea view normal Aortic arch view documented previously [...] specified by MFM. us Trav Macdonald [facility] Final Resul t from Last 3 Months Insurance * Guarantor: Nadine Wyatt Account Type Relation to Patient Date of Phone Billing Address Personal/Family Self 1990 [id number] [place] [address] [employer] Care Teams Golf Tournament Consultant Relationship Specialty Start Date End Date Jaime Wyatt PA-C [address] [place], [place] [phone] PCP - General Physician Building Specialist 03/18/18
--- OUTSIDE RECORDS SUMMARY | 2024-12-11 10:20 | XMS_ITS | Encounter Summary ---
Author Organization [facility] Address [address] [place] [address] Care Team Providers Care Newspaper Photo Editor Name Role Phone YoselinJaime FERMIN Unavailable Unallocated, Noms Provider Primary Care Provi kwabena Encounter Details Date Type Department Care Team (Late st Contact Info) Description 12/07/2024 Abstract [facility] OB [address] [place] [address] [place] [phone] Airam Murphy LPN Social History Tobacco Use Types Packs/Day [...] Felix LPN documented as of this encounter Plan of Treatment Upcoming Encounters Date Type Department Care Team (Late st Contact Info) Description 12/14/2024 1:30 PM EDT Routine [facility] BCP OB [address] [place] [address] Cuong Ortiz, DO [address] [place] [address] documented as of this encounter Goals Goal Patient Goal Type Associated Problems Recent Progress Patient-Stated? Author Reminders Care Plan OB Reminders No Open Scheduling, Background documented as of this encounter Visit Diagnoses Not on filedocumented in this encounter Additional Health Concerns Active Problems Noted Date Diagnosed Date OB Reminders 06/23/2024 documented as of this encounter Care Teams Newspaper Photo Editor Relationship Specialty Start Date End Date Unallocated, Noms Provider, [address] [place] [address] PCP - General 03/04/23 Jaime Wyatt PA [address] [place] [address] Referring Physician Physical Medicine and Rehabilitation 03/04/23 documented as of this encounter
--- OUTSIDE RECORDS SUMMARY | 2024-12-11 10:20 | XMS_ITS | Encounter Summary ---
Author Organization [facility] Address [address] [facility] [place] [address] Care Team Providers Care Jumpbasting Machine Operator Name Role Phone YoselinJaime FERMIN Unavailable Unallocated, Noms Provider Primary Care Provi kwabena Encounter Details Date Type Department Care Team (Late st Contact Info) Description 04/26/2023 Clinisync Result Encounter [facility] External Department Unsolicited Dave Ortiz, DO [address] [place] [address] Social History Tobacco Use Types Packs/Day Years [...] Routine [facility] BCP OB [address] [place] [address] Dave Ortiz DO [address] [place], [place] [phone] documented as of this encounter Procedures Procedure Name Priority Date/Time Associated Diagnosis Comments US OB TRANSVAGINAL 04/26/2023 8: 15 PM EST documented in this encounter Results * US OB TRANSVAGINAL (04/26/2023 8:15 PM EST) Anatomical Region Laterality Modality Other 04/26/2023 8:15 PM EST Narrative 04/26/2023 8:15 PM EST [address] [address] Ultrasound Report Signed Patient: ZULEIKA WADDELL MR#: [id number] : 1990 Acct:[id number] Age/Sex: 33 / F ADM Date: 04/26/23 Loc: US Attending Dr: Dave Ortiz D.O. Ordering Physician: Dave Ortiz D.O. Date of Service: 04/26/23 Procedure(s): US OB transvaginal Accession Number(s): [id number] cc: Dave Ortiz D.O.; Physician,Non-Staff Didi The [address] [address] Patient Name: ZULEIKA WADDELL MRN: [id number] date: 1990 Sex: F Assigned Patient Location: US Current Patient Location: US Accession/Order Number: [id number] Exam Date: 04/26/2023 09:40 Report Date: 04/26/2023 [...] M.D. Signed By: 04/26/232017 DD/ 14 TD/TT: Gauge Checker: Procedure Note Radiology, Radiologist, MD - 04/26/2023 [place] [address] Ultrasound Report Signed Patient: ZULEIKA WADDELL LMR#: [id number] : 1990Acct:[id number] Age/Sex: 33 / FADM Date: 04/26/23 Loc: US Attending Dr: Dave Ortiz D.O. Ordering Physician: Dave Ortiz D.O. Date of Service: 04/26/23 Procedure(s): US OB transvaginal Accession Number(s): [id number] cc: Dave Ortiz D.O.; Physician,Non-Staff Didi The [place] [address] Patient Name: ZULEIKA WADDELL MRN: [id number] date: 1990 Sex: F Assigned Patient Location: US Current Patient Location: US Accession/Order Number: [id number] Exam Date: 04/26/2023 09:40 Report Date: 04/26/2023 [...] Dawn M.D. Signed By:04/26/232017 DD/ 14 TD/TT: Gauge Checker: us Dave Ortiz DO [facility] Final Result documented in this encounter Visit Diagnoses Not on filedocumented in this encounter Care Teams Jumpbasting Machine Operator Relationship Specialty Start Date End Date Unallocated, Noms Provider, [address] [place] [address] PCP - General 03/04/23 Jaime Waddell PA [address] [place], [place] [phone] Referring Physician Physical Medicine and Rehabilitation 03/04/23 documented as of this encounter
--- OUTSIDE RECORDS SUMMARY | 2024-12-11 10:20 | XMS_ITS | Encounter Summary ---
Author Organization [facility] tem Address [id number] [address] 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
--- OUTSIDE RECORDS SUMMARY | 2024-12-11 10:20 | XMS_ITS | Encounter Summary ---
Author Organization [facility] tem Address [id number] [address] [place] [address] Care Team Providers Care Electrical Sign Servicer Name Role Phone Jaime Wyatt PA-C Primary Care Provider [phone] Encounter Details Date Type Department Care Team (Late st Contact Info) Description 03/26/2022 Telephone Maternal- Medicine at [facility] [address] [place] [address] Tamika Branch LPN Social History Tobacco Use [...] on filedocumented in this encounter Care Teams Electrical Sign Servicer Relationship Specialty Start Date End Date Jaime Wyatt, SADAF [address] [place], [place] [phone] PCP - General Physician Electrical Timing Device Calibrator 03/18/18 documented as of this encounter
--- OUTSIDE RECORDS SUMMARY | 2024-12-11 10:20 | XMS_ITS | Encounter Summary ---
Author Organization [facility] Address [address] [facility] [place] [address] Care Team Providers Care Assurance Officer Name Role Phone YoselinJaime FERMIN Unavailable Unallocated, Noms Provider Primary Care Provi kwabena Encounter Details Date Type Department Care Team (Late Contact Info) Description 12/07/2024 Bamboo flowsheet [facility] OB [address] [place] [address] Cuong Ortiz DO [facility] [place] [address] Social History Tobacco Use Types Packs/Day Years [...] OB [address] [place] [address] Cuong Ortiz DO [address] [place] [address] documented as of this encounter Goals Goal Patient Goal Type Associated Problems Recent Progress Patient-Stated? Author Reminders Care Plan OB Reminders No Open Scheduling, Background documented as of this encounter Visit Diagnoses Not on filedocumented in this encounter Additional Health Concerns Active Problems Noted Date Diagnosed Date OB Reminders 06/23/2024 documented as of this encounter Care Teams Assurance Officer Relationship Specialty Start Date End Date Unallocated, Noms Provider, [address] [place] [address] PCP - General 03/04/23 Jaime Wyatt PA [address] [place] [address] Referring Physician Physical Medicine and Rehabilitation 03/04/23 documented as of this encounter
--- OUTSIDE RECORDS SUMMARY | 2024-12-11 10:20 | XMS_ITS | Patient Health Record ---
Author Organization [facility] [place] Address [address] [place] [address] Care Team Providers Care Waxing Machine Operator Name Role Phone Laron Pulliam Primary Care Provider Allergies Allergen (clinical drug ingredient) Drug/Non Drug Allergy documented on EMR Reaction Allergy Type Onset Date Status bee pollen Bee Pollen Unknown Drug Allergy Activ e Substance with sulfonamide structure and antibacterial mechanism of action (substance) Sulfa Antibiotics Unknown Drug Allergy Active Penicillin Unknown Drug Allergy Active Results Component Value Reference Range Notes US OB BPP w non-stress Reviewed date:11/10/2024 04:02:27 PM Interpretation: Performing Lab: Notes/Report: Source Facility: [place] [address] Ultrasound Report Signed Patient: ZULEIKA WADDELL MR#: [id number] : 1990 Acct:[id number] Age/Sex: 34 / F ADM Date: 11/10/24 Loc: US Attending Dr: Dave Ortiz D.O. Ordering Physician: Dave Ortiz D.O. Date of Service: 11/10/24 Procedure(s): US OB BPP w non-stress Accession Number(s): [id number] cc: Dave Ortiz D.O.; Gera Pulliam M.D. [place] [address] Patient Name: ZULEIKA WADDELL MRN: [id number] date: 1990 Sex: F Assigned Patient Location: [facility] Current Patient Location: Accession/Order Number: [id number] Exam Date: 11/10/2024 10:07 Report Date: 11/10/2024 10:08 At the request of: DAVE ORTIZ DO Procedure: US OB BPP w non-stress BIOPHYSICAL PROFILE: CLINICAL INFORMATION: Christiano cisterna magna Q04.9 Comparison: 11/06/2024 There is a single live intrauterine gestation in cephalic presentation. The reported gestational age is 33 weeks 0 days. The heart rate [id number] beats per minute. FINDINGS: TONE: 1 or [...] 11/10/2024 10:08 AM Dictation Location: [place] [address] Electronically authenticated by: [id number] Y Date: 11/10/2024 10:08 Dictated By: Adela Mahan M.D. Signed By: 11/10/24 1011 DD/ 1008 TD/TT: Air Conditioner Installer Helper: [place] [address] Ultrasound Report Signed Patient: KJ WADDELL MR#: [id number] : 1990 Acct:[id number] Age/Sex: 34 / F ADM Date: 11/10/24 Loc: US Attending Dr: Dave Ortiz D.O. Ordering Physician: Dave Ortiz D.O. Date of Service: 11/10/24 Procedure(s): US OB BPP w non-stress Accession Number(s): [id number] cc: Dave Ortiz D.O. ; Gera Pulliam M.D. [address] [address] Patient Name: ZULEIKA WADDELL MRN: [id number] date: 1990 Sex: F Assigned Patient Loc ation: [facility] Current Patient Location: Accession/Order Numb er: [id number] Exam Date: 11/10/2024 10:07 Report Date: 11/10/2024 10:08 At the request of: DAVE ORTIZ DO Procedure: US OB fet al BPP w non-stress BIOPHYSICAL PROFILE: CLINICAL INFORMATION : Christiano cisterna magna Q04.9 Comparison: 11/06/2024 There is a single li ve intrauterine gestation in cephalic presentation. The reported gestational age is 33 weeks 0 days. The heart rate [id number] beats per minute. FINDINGS: TONE: 1 or [...] 11/10/2024 10:08 AM Dictation Location: [place] [address] Electronically authenticated by: [id number] Y Date: 11/10/2024 10:08 Dictated By: Adela Mahan M.D. Signed By: 11/10/24 1011 DD/ 1008 TD/TT: Air Conditioner Installer Helper: US OB BPP w non-stress Reviewed date:11/24/2024 04:35:00 PM Interpretation: Performing Lab: Notes/Report: Source Facility: [facility] [place] [address] [place] [address] Ultrasound Report Signed Patient: ZULEIKA WADDELL MR#: [id number] : 1990 Acct:[id number] Age/Sex: 34 / F ADM Date: 11/24/24 Loc: [facility] 250-[address]: Dave Ortiz D.O. Ordering Physician: Dave Ortiz D.O. Date of Service: 11/24/24 Procedure(s): US OB BPP w non-stress Accession Number(s): [id number] cc: Dave Ortiz D.O.; Gera Pulliam M.D. [place] [address] Patient Name: ZULEIKA WADDELL MRN: [id number] date: 1990 Sex: F Assigned Patient Location: [facility] Current Patient Location: [facility] Accession/Order Number: [id number] Exam Date: 11/24/2024 09:41 Report Date: 11/24/2024 [...] Mahan M.D. 11/24/2024 9:42 AM Dictation Location: [place] [address] Electronically authenticated by: [id number] Y Date: 11/24/2024 09:42 Dictated By: Adela Mahan M.D. Signed By: 11/24/2445 DD/ 1 TD/TT: Air Conditioner Installer Helper: The [address] [address] Ultrasound Report Signed Patient: KJ WADDELL MR#: [id number] : 1990 Acct:[id number] Age/Sex: 34 / F ADM Date: 11/24/24 Loc: [facility] 250-[address]: Dave Ortiz D.O. Ordering Physician: Dave Ortiz D.O. Date of Service: 11/24/24 Procedure(s): US OB BPP w non-stress Accession Number(s): [id number] cc: Dave Ortiz D.O. ; Gera Pulliam M.D. [address] [address] Patient Name: ZULEIKA WADDELL MRN: [id number] date: 1990 Sex: F Assigned Patient Loc ation: [facility] Current Patient Loca tion: [facility] Accession/Order Numb er: [id number] Exam Date: 11/24/2024 09:41 Report Date: 11/24/2024 [...] Mahan M.D. 11/24/2024 9:42 AM Dictation Location: [place] [address] Electronically authenticated by: [id number] Y Date: 11/24/2024 09:42 Dictated By: Adela Mahan M.D. Signed By: 11/24/2445 DD/ 1 TD/TT: Air Conditioner Installer Helper: Strep Gp B Culture+Rflx Reviewed date:12/05/2024 01:43:12 PM Interpretation: Performing Lab: Notes/Report: [facility] , Strep Gp B Culture+Rflx See Below For Report Strep Gp B Culture+Rflx Strep Gp B Culture+Rflx Negative Strep Gp B Culture+Rflx Strep Gp B Culture+Rflx Centers for Dise ase Control and Prevention (CDC) and Strep Gp B Culture+Rflx Strep Gp B Culture+Rflx Citizen Of [place] Congres s of Obstetricians and Gynecologists Strep Gp B Culture+Rflx Strep Gp B Culture+Rflx (ACOG) guideline s for prevention of group B Strep Gp B Culture+Rflx Strep Gp B Culture+Rflx streptococcal (G BS) disease specify co-collection of Strep Gp B Culture+Rflx Strep Gp B Culture+Rflx a vaginal and re ctal swab specimen to maximize Strep Gp B Culture+Rflx Strep Gp B Culture+Rflx sensitivity of G BS detection. Per the CDC and ACOG, Strep Gp B Culture+Rflx Strep Gp B Culture+Rflx swabbing both th e lower vagina and rectum Strep Gp B Culture+Rflx Strep Gp B Culture+Rflx substantially in creases the yield of detection Strep Gp B Culture+Rflx Strep Gp B Culture+Rflx compared with sa mpling the vagina alone. Strep Gp B Culture+Rflx Strep Gp B Culture+Rflx Penicillin G, am picillin, or cefazolin are indicated Strep Gp B Culture+Rflx Strep Gp B Culture+Rflx for intrapartum prophylaxis of GBS Strep Gp B Culture+Rflx Strep Gp B Culture+Rflx colonization. Re flex susceptibility testing should be Strep Gp B Culture+Rflx Strep Gp B Culture+Rflx performed prior to use of clindamycin only on GBS Strep Gp B Culture+Rflx Strep Gp B Culture+Rflx isolates from penicillin-allergic women who are Strep Gp B Culture+Rflx Strep Gp B Culture+Rflx considered a hig h risk for anaphylaxis. Treatment with Strep Gp B Culture+Rflx Strep Gp B Culture+Rflx vancomycin witho ut additional testing is warranted if Strep Gp B Culture+Rflx Strep Gp B Culture+Rflx resistance to cl indamycin is noted. Strep Gp B Culture+Rflx Strep Gp B Culture+Rflx Performed at: - [facility] [place] Strep Gp B Culture+Rflx Strep Gp B Culture+Rflx [address] [place], [place] [id number] Strep Gp B Culture+Rflx Strep Gp B Culture+Rflx Senior Data Warehouse Developer: Corazon Fine PhD, Phone: [phone] Strep Gp B Culture+Rflx Performing Lab: see note LC - [facility] SEE REPORT - Loading Unit Operator Id information not found for OBX-specific expense clerk legend US OB BPP w non-stress Reviewed date:12/01/2024 12:51:39 PM Interpretation: Performing Lab: Notes/Report: Source Facility: [place] [address] Ultrasound Report Signed Patient: ZULEIKA WADDELL MR#: [id number] : 1990 Acct:[id number] Age/Sex: 34 / F ADM Date: 12/01/24 Loc: US Attending Dr: Dave Ortiz D.O. Ordering Physician: Dave Ortiz D.O. Date of Service: 12/01/24 Procedure(s): US OB BPP w non-stress Accession Number(s): [id number] cc: Dave Ortiz D.O.; Gera Pulliam M.D. [place] [address] Patient Name: ZULEIKA WADDELL MRN: [id number] date: 1990 Sex: F Assigned Patient Location: Current Patient Location: Accession/Order Number: [id number] Exam Date: 12/01/2024 11:04 Report Date: 12/01/2024 11:12 At the request of: DAVE POLO DO Procedure: US OB growth CLINICAL DATA: [...] Mahan M.D. 12/01/2024 11:12 AM Dictation Location: [place] [address] Electronically authenticated by: [id number] Y Date: 12/01/2024 11:12 Dictated By: Adela Mahan M.D. Signed By: 12/01/24 1115 DD/ 1112 TD/TT: Air Conditioner Installer Helper: [place] [address] Ultrasound Report Signed Patient: KJ WADDELL MR#: [id number] : 1990 Acct:[id number] Age/Sex: 34 / F ADM Date: 12/01/24 Loc: US Attending Dr: Dave Ortiz D.O. Ordering Physician: Dave Ortiz D.O. Date of Service: 12/01/24 Procedure(s): OB BPP w non-stress Accession Number(s): [id number] cc: Dave Ortiz D.O. ; Gera Pulliam M.D. [place] [id number] Patient Name: ZULEIKA WADDELL MRN: [id number] date: 1990 Sex: F Assigned Patient Loc ation: US Current Patient Location: Accession/Order Numb er: [id number] Exam Date: 12/01/2024 11:04 Report Date: 12/01/2024 [...] Mahan M.D. 12/01/2024 11:12 AM Dictation Location: [place] [address] Electronically authenticated by: [id number] Y Date: 12/01/2024 11:12 Dictated By: Adela Mahan M.D. Signed By: 12/01/241114 DD/ 11 TD/TT: Air Conditioner Installer Helper: US OB BPP w non-stress Reviewed date:11/17/2024 04:34:46 PM Interpretation: Performing Lab: Notes/Report: Source Facility: [place] [address] Ultrasound Report Signed Patient: ZULEIKA WADDELL MR#: [id number] : 1990 Acct:[id number] Age/Sex: 34 / F ADM Date: 11/17/24 Loc: US Attending Dr: Dave Ortiz D.O. Ordering Physician: Dave Ortiz D.O. Date of Service: 11/17/24 Procedure(s): US OB BPP w non-stress Accession Number(s): [id number] cc: Dave Ortiz D.O.; Gera Pulliam M.D. The [place] [address] Patient Name: ZULEIKA WADDELL MRN: [id number] date: 1990 Sex: F Assigned Patient Location: [facility] Current Patient Location: Accession/Order Number: [id number] Exam Date: 11/17/2024 10:16 Report Date: 11/17/2024 [...] 11/17/2024 10:17 AM Dictation Location: [place] [address] Electronically authenticated by: [id number] Y Date: 11/17/2024 10:17 Dictated By: Adela Mahan M.D. Signed By: 11/17/24 1019 DD/ 1017 TD/TT: Air Conditioner Installer Helper: [place] [address] Ultrasound Report Signed Patient: KJ WADDELL MR#: [id number] : 1990 Acct:[id number] Age/Sex: 34 / F ADM Date: 11/17/24 Loc: US Attending Dr: Dave Ortiz D.O. Ordering Physician: Dave Ortiz D.O. Date of Service: 11/17/24 Procedure(s): US OB BPP w non-stress Accession Number(s): [id number] cc: Dvae Ortiz D.O. ; Gera Pulliam M.D. [place] [id number] Patient Name: ZULEIKA WADDELL MRN: [id number] date: 1990 Sex: F Assigned Patient Loc ation: [facility] Current Patient Location: Accession/Order Numb er: [id number] Exam Date: 11/17/2024 10:16 Report Date: 11/17/2024 [...] in normal range. Total score: 8/8 U S/ OB BPP w non-stress IMPRESSION: NORMAL BIOPHYSICAL PROFILE Impression dictated by: Adela Mahan M.D. 11/17/2024 10:17 AM Dictation Location: [place] [address] Electronically authenticated by: [id number] Y Date: 11/17/2024 10:17 Dictated By: Adela Mahan M.D. Signed By: 11/17/24 1019 DD/ 1017 TD/TT: Air Conditioner Installer Helper: OB BPP w non-stress Reviewed date:11/07/2024 11:57:39 AM Interpretation: Performing Lab: Notes/Report: Source Facility: [place] [address] [place] [address] Ultrasound Report Signed Patient: ZULEIKA WADDELL MR#: [id number] : 1990 Acct:[id number] Age/Sex: 34 / F ADM Date: 11/06/24 Loc: [facility] Attending Dr: Dave Ortiz D.O. Ordering Physician: Dave Ortiz D.O. Date of Service: 11/06/24 Procedure(s): US OB BPP w non-stress Accession Number(s): [id number] cc: Dave Ortiz D.O.; Gera Pulliam M.D. [place] [address] Patient Name: ZULEIKA WADDELL MRN: [id number] date: 1990 Sex: F Assigned Patient Location: [facility] Current Patient Location: Accession/Order Number: [id number] Exam Date: 11/06/2024 13:51 Report Date: 11/06/2024 [...] Giang M.D. 11/06/2024 2:00 PM Dictation Location: [place] [address] Electronically authenticated by: [id number] Y Date: 11/06/2024 14:00 Dictated By: Jimy Giang M.D. Signed By: 11/06/24 1403 DD/ 99 TD/TT: Air Conditioner Installer Helper: [place] [address] Ultrasound Report Signed Patient: KJ WADDELL MR#: [id number] : 1990 Acct:[id number] Age/Sex: 34 / F ADM Date: 11/06/24 Loc: [facility] Attending Dr: Dave Ortiz D.O. Ordering Physician: Dave Ortiz D.O. Date of Service: 11/06/24 Procedure(s): US OB BPP w non-stress Accession Number(s): [id number] cc: Dave Ortiz D.O. ; Gera Pulliam M.D. [place] [id number] Patient Name: ZULEIKA WADDELL MRN: [id number] date: 1990 Sex: F Assigned Patient Loc ation: [facility] Current Patient Location: Accession/Order Numb er: [id number] Exam Date: 11/06/2024 13:51 Report Date: 11/06/2024 [...] Giang M.D. 11/06/2024 2:00 PM Dictation Location: [place] [address] Electronically authenticated by: [id number] Y Date: 11/06/2024 14:00 Dictated By: Jimy Giang M.D. Signed By: 11/06/24 1403 DD/ 1400 TD/TT: Air Conditioner Installer Helper: US OB growth Reviewed date:11/03/2024 08:40:24 PM Interpretation: Performing Lab: Notes/Report: Source Facility: [place] [address] [address] [address] Ultrasound Report Signed Patient: ZULEIKA WADDELL MR#: [id number] : 1990 Acct:[id number] Age/Sex: 34 / F ADM Date: 11/03/24 Loc: US Attending Dr: Dave Ortiz D.O. Ordering Physician: Dave Ortiz D.O. Date of Service: 11/03/24 Procedure(s): US OB growth Accession Number(s): [id number] cc: Dave Ortiz D.O.; Gera Pulliam M.D. [place] [address] Patient Name: ZULEIKA WADDELL MRN: [id number] date: 1990 Sex: F Assigned Patient Location: US Current Patient Location: Accession/Order Number: [id number] Exam Date: 11/03/2024 16:30 Report Date: 11/03/2024 [...] Boyce M.D. 11/03/2024 4:34 PM Dictation Location: [place] [address] Electronically authenticated by: [id number] Y Date: 11/03/2024 16:34 Dictated By: Aaron Boyce D.O. Signed By: 11/03/24 1636 DD/ 33 TD/TT: Air Conditioner Installer Helper: The [address] [address] Ultrasound Report Signed Patient: KJ WADDELL MR#: [id number] : 1990 Acct:[id number] Age/Sex: 34 / F ADM Date: 11/03/24 Loc: US Attending Dr: Dave Ortiz D.O. Ordering Physician: Dave Ortiz D.O. Date of Service: 11/03/24 Procedure(s): US OB growth Accession Number(s): [id number] cc: Dave Ortiz D.O. ; Gera Pulliam M.D. The [address] [address] Patient Name: ZULEIKA WADDELL MRN: [id number] date: 1990 Sex: F Assigned Patient Loc ation: US Current Patient Location: Accession/Order Numb er: [id number] Exam Date: 11/03/2024 16:30 Report Date: 11/03/2024 [...] Boyce M.D. 11/03/2024 4:34 PM Dictation Location: [place] [address] Electronically authenticated by: [id number] Y Date: 11/03/2024 16:34 Dictated By: Basilio Boyce D.O. Signed By: 11/03/24 163 DD/ 163 TD/TT: Air Conditioner Installer Helper: US OB BPP w non-stress Reviewed date:11/03/2024 08:40:24 PM Interpretation: Performing Lab: Notes/Report: Source Facility: [place] [address] [place] [address] Ultrasound Report Signed Patient: ZULEIKA WADDELL MR#: [id number] : 1990 Acct:[id number] Age/Sex: 34 / F ADM Date: 11/03/24 Loc: US Attending Dr: Dave Ortiz D.O. Ordering Physician: Dave Ortiz D.O. Date of Service: 11/03/24 Procedure(s): US OB BPP w non-stress Accession Number(s): [id number] cc: Dave Ortiz D.O.; Gera Pulliam M.D. [place] [address] Patient Name: ZULEIKA WADDELL MRN: [facility]:[id number] date: 1990 Sex: F Assigned Patient Location: Current Patient Location: Accession/Order Number: [id number] Exam Date: 11/03/2024 15:29 Report Date: 11/03/2024 15:31 At the request of: DAVE ORTIZ DO Procedure: US OB BPP w non-stress Ultrasound obstetrical biophysical profile HISTORY: Patrick cisterna magna. In adequate breathing movement. Adequate gross body movement, tone and amniotic fluid volume. Total score 6 out of 8. Amniotic fluid index 11.1 cm within normal limits. heart rate 148 bpm. US/US OB BPP w non-stress IMPRESSION: Suboptimal biophysical profile. Score 6 out of 8. Impression dictated by: Aaron Boyce M.D. 11/03/2024 3:31 PM Dictation Location: [place] [address] Electronically authenticated by: [id number] Y Date: 11/03/2024 15:31 Dictated By: Aaron Boyce D.O. Signed By: 11/03/24 1533 DD/ 153 TD/TT: Air Conditioner Installer Helper: [place] [address] Ultrasound Report Signed Patient: KJ WADDELL MR#: [id number] : 1990 Acct:[id number] Age/Sex: 34 / F ADM Date: 11/03/24 Loc: US Attending Dr: Dave Ortiz D.O. Ordering Physician: Dave Ortiz D.O. Date of Service: 11/03/24 Procedure(s): US OB BPP w non-stress Accession Number(s): [id number] cc: Dave Ortiz D.O. ; Gera Pulliam M.D. [place] [address] Patient Name: ZULEIKA WADDELL MRN: [id number] date: 1990 Sex: F Assigned Patient Loc ation: US Current Patient Location: Accession/Order Numb er: [id number] Exam Date: 11/03/2024 15:29 Report Date: 11/03/2024 15:31 At the request of: DAVE ORTIZ DO Procedure: US OB fet al BPP w non-stress Ultrasound obstetric al biophysical profile HISTORY: Patrick ciste rna magna. In adequate breathing movement. Adequate gross body movement, tone and amniotic fl uid volume. Total score 6 out of 8. Amniotic fluid index 11.1 cm within dayana l limits. heart rate 148 bpm. U S/US OB BPP w non-stress IMPRESSION: Suboptim al biophysical profile. Score 6 out of 8. Impression dictated by: Aaron Boyce M.D. 11/03/2024 3:31 PM Dictation Location: [place] [address] Electronically authenticated by: [id number] Y Date: 11/03/2024 15:31 Dictated By: Basilio Boyce D.O. Signed By: 11/03/24 1533 DD/ 30 TD/TT: Air Conditioner Installer Helper: PROF Valentine(COMP METB) Reviewed date:10/26/2024 02:03:18 PM Interpretation: Performing Lab: Notes/Report: [facility] , Sodium 134 136-145 mmol/L Potassium [...] 0.6 Performing Lab: see note ML - [facility] CBC AUTO DIFF Reviewed date:10/26/2024 02:03:18 PM Interpretation: Performing Lab: Notes/Report: [facility] , White Blood Count 10.2 4.0-11.0 10 [...] Performing Lab: see note ML - [facility] ECG 12 lead Reviewed date:09/23/2024 06:29:51 PM Interpretation: Performing Lab: Notes/Report: Source Facility: [place] [address] [place] [address] Electrocardiograph Report Signed Patient: ZULEIKA WADDELL MR#: [id number] : 1990 Acct:[id number] Age/Sex: 34 / F ADM Date: 09/23/24 Loc: ER Attending Dr: Ordering Physician: Renata Fox D.O. Date of Service: 09/23/24 Procedure(s): ECG 12 lead Accession Number(s): [id number] cc: [facility] Test Date: 2024-09-23 Pat Name: ZULEIKA WADDELL Department: Room: - Gender: Female Computing Services Director: : 1990 Requested By: GERA PULLIAM Order Number: [id number] Reading MD: JOANA ANGULO Measurements Intervals Orion Rate: 95 P: 60 [place]: 118 QRS: 73 QRSD: 78 T: 42 QT: 332 QTc: 385 Interpretive Statements 1100 Sinus rhythm 2210 Short [place] interval 9150 abnormal ECG Compared to ECG 05/16/2021 19:44:03 Short [place] interval now present Electronically Signed On 09-23-2024 14:08:31 EDT by JOANA ANGULO Dictated By: Joana Angulo M.D. Signed By: 09/23/24 1408 DD/ 1058 TD/TT: Air Conditioner Installer Helper: [place] [address] Electrocardiograph Report Signed Patient: KJ WADDELL MR#: [id number] : 1990 Acct:[id number] Age/Sex: 34 / F ADM Date: 09/23/24 Loc: ER Attending Dr: Ordering Physician: Rneata Fox D.O. Date of Service: 09/23/24 Procedure(s): ECG 12 lead Accession Number(s): [id number] cc: [facility] Test Date: 2024-09-23 Pat Name: ZULEIKA ARTEAGA Department: 43 Room: - Gender: Female Computing Services Director: : 1990 Req uested By: GERA PULLIAM Order Number: [id number] Reading MD: JOANA ANGULO Measurements Intervals [place]ion Rate: 95 P: 60 NY: 118 QRS: 73 QRSD: 78 T: 42 QT: 332 QTc: 385 Interpretive Statements 1100 Sinus rhythm 2210 Short [place] interval 9150 abnormal ECG Compared to ECG 04/19 19:44:03 Short [place] interval no w present Electronically Yeni d On 09-23-2024 14:08:31 EDT by JOANA ANGULO Dictated By: Joana Oro M.D. Signed By: 09/23/24 1408 DD/ 1058 TD/TT: Air Conditioner Installer Helper: Manual Differential Reviewed date:09/23/2024 01:07:05 PM Interpretation: Performing Lab: Notes/Report: [facility] , Segmented Neutrophils % Manual 93.0 [...] 3/uL Monocytes Absolute Manual 0.25 0.30-0.80 10 3/uL Eosinophils Absolute Manual 0.00 0.00-0.70 10 3/uL Basophils Abs Manual 0.00 0.00-0.10 10 3/uL Anisocytosis 1+ Performing Lab: see note ML - [facility] PROF 14(COMP METB) Reviewed date:09/23/2024 01:07:05 PM Interpretation: Performing Lab: Notes/Report: [facility] , Sodium 138 136-145 mmol/L Potassium [...] 0.7 Performing Lab: see note ML - [facility] CBC AUTO DIFF Reviewed date:09/23/2024 01:07:05 PM Interpretation: Performing Lab: Notes/Report: [facility] , White Blood Count 12.5 4.0-11.0 [...] Performing Lab: see note ML - [facility] US OB BPP w non-stress Reviewed date:12/09/2024 09:35:57 PM Interpretation: Performing Lab: Notes/Report: Source Facility: [place] [address] Ultrasound Report Signed Patient: ZULEIKA WADDELL MR#: [id number] : 1990 Acct:[id number] Age/Sex: 34 / F ADM Date: 12/08/24 Loc: US Attending Dr: Dave Ortiz D.O. Ordering Physician: Dave Ortiz D.O. Date of Service: 12/08/24 Procedure(s): US OB BPP w non-stress Accession Number(s): [id number] cc: Dave Ortiz D.O.; Gera Pulliam M.D. The [place] [address] Patient Name: ZULEIKA WADDELL MRN: [id number] date: 1990 Sex: F Assigned Patient Location: [facility] Current Patient Location: [facility] Accession/Order Number: [id number] Exam Date: 12/08/2024 11:48 Report Date: 12/08/2024 11:51 At the request of: DAVE ORTIZ DO Procedure: US OB BPP w non-stress BIOPHYSICAL PROFILE: CLINICAL INFORMATION: Christiano cisterna magna Q04.9 COMPARISON: 12/01/2024 There is [...] Mahan M.D. 12/08/2024 11:51 AM Dictation Location: [place] [address] Electronically authenticated by: [id number] Y Date: 12/08/2024 11:51 Dictated By: Adela Mahan M.D. Signed By: 12/08/24 1154 DD/ 1151 TD/TT: Air Conditioner Installer Helper: [place] [address] Ultrasound Report Signed Patient: KJ WADDELL MR#: [id number] : 1990 Acct:[id number] Age/Sex: 34 / F ADM Date: 12/08/24 Loc: US Attending Dr: Dave Ortiz D.O. Ordering Physician: Dave Ortiz D.O. Date of Service: 12/08/24 Procedure(s): US OB BPP w non-stress Accession Number(s): [id number] cc: Dave Ortiz D.O. ; Gera Pulliam M.D. [place] [id number] Patient Name: ZULEIKA WADDELL MRN: [id number] date: 1990 Sex: F Assigned Patient Loc ation: [facility] Current Patient [place]oca tion: [place] Accession/Order Numb er: [id number] Exam Date: 12/08/2024 11:48 Report Date: 12/08/2024 11:51 At the request of: DAVE ORTIZ DO Procedure: US OB fet al BPP w non-stress BIOPHYSICAL PROFILE: CLINICAL INFORMATION : Christiano cisterna magna Q04.9 COMPARISON: 12/01/2024 There is a single li ve intrauterine gestation in cephalic presentation. The reported gestational age is 37 weeks 0 days. The heart rate measures 129 beats per minute . A nuchal cord is again suspected. FINDINGS : TONE: 1 or mor e episodes of [...] cm [Y] 2/2 ANURAG: 14.8 cm. This i s in upper normal range. Total score: 8/8 U S/US OB BPP w non-stress IMPRESSION: NORMAL BIOPHYSICAL PROFILE. CONTINUED POSSIBLE N UCHAL CORD. Impression dictated by: Adela Mahan M.D. 12/08/2024 11:51 AM Dictation Location: [place] [address] Electronically authenticated by: [id number] Y Date: 12/08/2024 11:51 Dictated By: Adela Mahan M.D. Signed By: 12/08/24 1154 DD/ 1151 TD/TT: Air Conditioner Installer Helper: US OB growth Reviewed date:12/01/2024 12:51:39 PM Interpretation: Performing Lab: Notes/Report: Source Facility: [place] [address] Ultrasound Report Signed Patient: ZULEIKA WADDELL MR#: [id number] : 1990 Acct:[id number] Age/Sex: 34 / F ADM Date: 12/01/24 Loc: US Attending Dr: Dave Ortiz D.O. Ordering Physician: Dave Ortiz D.O. Date of Service: 12/01/24 Procedure(s): US OB growth Accession Number(s): [id number] cc: Dave Ortiz D.O.; Gera Pulliam M.D. [place] [address] Patient Name: ZULEIKA WADDELL MRN: [id number] date: 1990 Sex: F Assigned Patient Location: [facility] Current Patient Location: Accession/Order Number: [id number] Exam Date: 12/01/2024 11:04 Report Date: 12/01/2024 [...] Mahan M.D. 12/01/2024 11:12 AM Dictation Location: [place] [address] Electronically authenticated by: [id number] Y Date: 12/01/2024 11:12 Dictated By: Adela Mahan M.D. Signed By: 12/01/24 1115 DD/ 111 TD/TT: Air Conditioner Installer Helper: [place] [address] Ultrasound Report Signed Patient: KJ WADDELL MR#: [id number] : 1990 Acct:[id number] Age/Sex: 34 / F ADM Date: 12/01/24 Loc: US Attending Dr: Dave Ortiz D.O. Ordering Physician: Dave Ortiz D.O. Date of Service: 12/01/24 Procedure(s): US OB growth Accession Number(s): [id number] cc: Dave Ortiz D.O. ; Gera Pulliam M.D. [place] [id number] Patient Name: ZULEIKA WADDELL MRN: [id number] date: 1990 Sex: F Assigned Patient Loc ation: [facility] Current Patient Location: Accession/Order Numb er: [id number] Exam Date: 12/01/2024 11:04 Report Date: 12/01/2024 [...] cm [Y] 2/2 ANURAG: 11.6 cm cm. Th is is in normal range. Total score: 8/8 IMPRESSION: NORMAL BIOPHYSICAL PROFILE Impression dictated by: Adela Mahan M.D. 12/01/2024 11:12 AM Dictation Location: [place] [address] Electronically authenticated by: [id number] Y Date: 12/01/2024 11:12 Dictated By: Adela Mahan M.D. Signed By: 12/01/245 DD/ 11 TD/TT: Air Conditioner Installer Helper: Reason For Referral No Information Medications Medication [...] 08/27/2024 Encounters Encounter Location Date Provider Diagnosis [facility] [address] [place] [address] 08/27/2024 [facility] [address] [place] [address] 08/28/2024 [facility] [address] [place] [address] 09/23/2024 [facility] [address] [place] [address] 08/27/2024 Laron Pull[facility] Diarrhea R19.7 Assessments Encounter [...] End Date [employer] [place]ICA[place] [address] [address] [place] [address] [id number] [facility] [address] [place], [place] Self - patient is the insured Medical (General) History Medical History History ICD Code Asthma Depression Hypertension Surgical History Surgery Date(Month/Year) Club Foot- Left Open heart surgery Breast reduction 2015
--- OUTSIDE RECORDS SUMMARY | 2024-12-11 10:20 | XMS_ITS | Encounter Summary ---
Author Organization [facility] Address [address] [facility] [place] [address] Care Team Providers Care Preventive Maintenance Engineer Name Role Phone Yoselin Jaime FERMIN Unavailable Unallocated, Noms Provider Primary Care Provi kwabena Encounter Details Date Type Department Care Team (Late st Contact Info) Description 12/08/2024 Clinisync Result Encounter [facility] External Department Unsolicited Dave Ortiz, DO [address] [place] [address] Social History Tobacco Use Types Packs/Day Years [...] Description 12/14/2024 1:30 PM EDT Routine [facility] OB [address] [place] [address] Dave Ortiz, DO [address] [place] [address] (work) documented as of this encounter Goals Goal Patient Goal Type Associated Problems Recent Progress Patient-Stated? Author Reminders Care Plan OB Reminders No Open Scheduling, Background documented as of this encounter Procedures Procedure Name Priority Date/Time Associated Diagnosis Comments US OB BPP W NON-STRESS 12/08/2024 11:51 AM EDT documented in this encounter Results * US OB BPP W NON-STRESS (12/08/2024 11:51 AM EDT) Anatomical Region Laterality Modality Other 12/08/2024 11:5 1 AM EDT Narrative 12/08/2024 11:54 [place] [address] Ultrasound Report Signed Patient: ZULEIKA WADDELL MR#: [id number] : 1990 Acct:[id number] Age/Sex: 34 / F ADM Date: 12/08/24 Loc: US Attending Dr: Dave Ortiz D.O. Ordering Physician: Dave Ortiz D.O. Date of Service: 12/08/24 Procedure(s): US OB BPP w non-stress Accession Number(s): [id number] cc: Dave Ortiz D.O.; Ramon Avila M.D. [address] [address] Patient Name: ZULEIKA WADDELL MRN: [facility]:[id number] date: 1990 Sex: F Assigned Patient Location: [facility] [place] [facility] [place]/Order Number: [id number] Exam Date: 12/08/2024 11:48 Report Date: 12/08/2024 [...] Mahan M.D. 12/08/2024 11:51 AM Dictation Location: [place] [address] Electronically authenticated by: [id number] Y Date: 12/08/2024 11:51 Dictated By: Adela Mahan M.D. Signed By: 12/08/24 1154 DD/ 1151 TD/TT: General Passenger Agent: Procedure Note Radiology, Radiologist, MD - 12/08/2024 [place] [address] Ultrasound Report Signed Patient: ZULEIKA WADDELL LMR#: [id number] : 1990Acct:[id number] Age/Sex: 34 / FADM Date: 12/08/24 Loc: US Attending Dr: Dave Ortiz D.O. Ordering Physician: Dave Ortiz D.O. Date of Service: 12/08/24 Procedure(s): US OB BPP w non-stress Accession Number(s): [id number] cc: Dave Ortiz D.O.; Ramon Avila M.D. [place] [id number] Patient Name: ZULEIKA WADDELL MRN: [id number] date: 1990 Sex: F Assigned Patient Location: [facility] [place] [facility] [place]ion/Order Number: [id number] Exam Date: 12/08/2024 11:48 Report Date: 12/08/2024 [...] Mahan M.D. 12/08/2024 11:51 AM Dictation Location: [place] [address] Electronically authenticated by: [id number] Y Date: 1:51 Dictated By: Adela Mahan M.D. Signed By:12/08/24 1154 DD/ 1151 TD/TT: General Passenger Agent: Dave Ortiz DO [facility] Final Result documented in this encounter Visit Diagnoses Not on filedocumented in this encounter Additional Health Concerns Active Problems Noted Date Diagnosed Date OB Reminders 06/23/2024 documented as of this encounter Care Teams Preventive Maintenance Engineer Relationship Specialty Start Date End Date Unallocated, Noms Provider, [address] [place] [address] PCP - General 03/04/23 Jaime Waddell PA [address] [place] [address] Referring Physician Physical Medicine and Rehabilitation 03/04/23 documented as of this encounter
--- OUTSIDE RECORDS SUMMARY | 2024-12-11 10:20 | XMS_ITS ---
Author Organization [facility] Address [address] [place] [address] Care Team Providers Care Ticket Sorter Name Role Phone Jaime Wyatt Unavailable Unallocated, Noms Provider Primary Care Provi kwabena [facility]) Status:Enrolled (Active) Start date:08/11/2024 Enrollment date:08/12/2024 Enrollment reason:Identified by Health Plan Case Team Name Relationship Phone Elena Felix LPN(Responsible Staff) Licensed Prac tical Nurse [phone] Continued Care and Services Coordination
--- OUTSIDE RECORDS SUMMARY | 2024-12-11 10:20 | XMS_ITS | Encounter Summary ---
Author Organization [facility] Address [address] [facility] [place] [address] Care Team Providers Care Radio Communications Superintendent Name Role Phone Yoselin Jaime FERMIN Unavailable Unallocated, Noms Provider Primary Care Provi kwabena Encounter Details Date Type Department Care Team (Late st Contact Info) Description 09/29/2024 Abstract [facility] OB [address] [place] [address] Cuong Ortiz DO [facility] [address] [place], [place] [address] Social History Tobacco Use Types Packs/Day Years [...] [place] [address] Cuong Ortiz DO [address] [place] [address] [place] [address] documented as of this encounter Goals Goal Patient Goal Type Associated Problems Recent Progress Patient-Stated? Author Reminders Care Plan OB Reminders No Open Scheduling, Background documented as of this encounter Visit Diagnoses Not on filedocumented in this encounter Additional Health Concerns Active Problems Noted Date Diagnosed Date OB Reminders 06/23/2024 documented as of this encounter Care Teams Radio Communications Superintendent Relationship Specialty Start Date End Date Unallocated, Noms Provider, [address] [place] [address] PCP - General 03/04/23 Jaime Wyatt PA [address] [place] [address] Referring Physician Physical Medicine and Rehabilitation 03/04/23 documented as of this encounter
--- OUTSIDE RECORDS SUMMARY | 2024-12-11 10:20 | XMS_ITS | Encounter Summary ---
Author Organization [employer] Address [id number] [address] 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 Procedures US [facility] with or without consult Dave Ortiz DO Phone: tel: fax: Maternal- Medicine at [address] [address] Phone: tel: fax: Referral ID Status Reason Start Date Expiration Date V isits Requested Visits Authorized [id number] Pending Review 08/27/2024 08/27/2025 1 1 Encounter Details Date Type Department Care Team (Late st Contact Info) Description 08/27/2024 Orders Only Maternal- Medicine at [address] [address] Beronica Minaya CMA History of [...] 2:35 PM EDT) Anatomical Region Laterality Modality OB-TURBINE ROOM ATTENDANT Ultrasound 08/27/2024 1:30 PM EDT Narrative 08/27/2024 5:23 PM EDT NAME: BAIRON TO : 1990 SEX: F Accession Number: [id number] ORDERING PHYSICIAN: DAVE ORTIZ REFERRING PHYSICIAN: DAVE ORTIZ Coding ----- --------- Procedures 18920: Ultrasound, uterus, real time with image documentation, and maternal evaluation plus detailed anatomic examination, transabdominal approach;single or first gestation 62553: Transvaginal Ultrasound (OB) Indication ----- --------- Screening for Anatomic Survey , Screening for cervical length , Chronic hypertension affecting , History of prior with delivery, Supervision of high risk - MOB alcohol syndrome, 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 Para 4 [id number] Current ----- --------- Cell free DNA Low [...] 1 lb 0 oz EFW by Hadlock (CQA-VB-MS-FL) Head / Face / Neck Biometry: Cephalic index 0.70 <1% Nicolaides Threat Monitoring Analyst 6.1 mm CM 9.9 mm >99% [...] Head / Neck Neck. Heart / Thorax 8-qcjajt-zrvrgus view. Extremities / Right hand. 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 Para 4 [id number] Current ----- --------- Cell free DNA Low [...] 1 lb 0 oz EFW by Hadlock (JME-QR-YL-FL) Head / Face / Neck Biometry: Cephalic index 0.70 <1% Nicolaides Threat Monitoring Analyst 6.1 mm CM 9.9 mm >99% [...] Head / Neck Neck. Heart / Thorax 3-ejjcdf-zizqxol view. Extremities / Right hand. Skeleton Maternal [...] 1.01 cm. Recommendations ----- --------- Please see [facility] documentation from today. The patient is scheduled in four to six week(s) to complete anatomicsurvey. Subsequent follow up or other follow up as clinically determined byprimary OB provider unless otherwise specified by [facility]. Results forwarded to ordering provider so [...] documented as of this encounter Care Teams Associate Teacher Relationship Specialty Start Date End Date Jaime Wyatt, SADAF [address] [place], [place] [id number] PCP - General Physician Line Clearance Foreman 03/18/18 documented as of this encounter
--- OUTSIDE RECORDS SUMMARY | 2024-12-11 10:20 | XMS_ITS | Encounter Summary ---
Author Organization [facility] Address [address] [facility] [place] [address] Care Team Providers Care Hand Lens Polisher Name Role Phone Jaime Wyatt MA Unavailable Unallocated, Noms Provider Primary Care Provi kwabena Encounter Details Date Type Department Care Team (Late st Contact Info) Description 12/19/[address] [facility] [address] [facility] [address] [place] [address] Arden Orozco, DO [address] [facility] [address] [place] [address] Social History Tobacco Use Types [...] Routine [facility] OB [address] [place] [address] Cuong Ortiz, [address] [place] [address] documented as of this encounter Visit Diagnoses Not on filedocumented in this encounter Care Teams Hand Lens Polisher Relationship Specialty Start Date End Date Unallocated, Noms Provider, MD [address] [place] [address] PCP - General 03/04/23 Jaime Wyatt PA [address] [place] [address] Referring Physician Physical Medicine and Rehabilitation 03/04/23 documented as of this encounter
--- OUTSIDE RECORDS SUMMARY | 2024-12-11 10:20 | XMS_ITS | Clinical Summary ---
Author Organization [facility] Address [address] [place] [address] Care Team Providers Care Rotary Drill Operator Helper Name Role Phone Unavailable Primary Care [...] Billing Address Personal/Family Self 1990 na (Home) [address] [facility] [place] [address] [place] [address] [place] [employer] [place]
--- OUTSIDE RECORDS SUMMARY | 2024-12-11 10:20 | XMS_ITS | Encounter Summary ---
Author Organization [facility] Address [address] [facility] [place] [address] Care Team Providers Care Installation Technician Name Role Phone Yoselin Jaime FERMIN Unavailable Unallocated, Noms Provider Primary Care Provi kwabena Encounter Details Date Type Department Care Team (Late st Contact Info) Description 06/06/2023 Abstract [facility] [address] [facility] [address] Destinee Vazquez LPN [address] [facility] [address] [place] [address] Social History Tobacco Use Types Packs/Day Years [...] PM EDT Routine [facility] [address] [facility] [place] [address] Cuong Ortiz DO [address] [facility] [address] [place] [id number] documented as of this encounter Visit Diagnoses Not on filedocumented in this encounter Care Teams Installation Technician Relationship Specialty Start Date End Date Unallocated, Noms Provider, [address] [place], [place] [phone] PCP - General 03/04/23 Jaime Wyatt PA [address] [place], [place] [phone] Referring Physician Physical Medicine and Rehabilitation 03/04/23 documented as of this encounter
[2024-12-11 10:23] VITALS: BP 117/68; PULSE 78
== END 2024-12-11 10:46 | disposition home or self-care (01) ==
LOC: FBCO 10:16 → FBC 10:18
PROVIDERS: PCP Family Medicine; Visit Provider Obstetrics & Gynecology
DX: O26.893 Other specified pregnancy related conditions, third trimester (principal)
CPT/HCPCS: 59025

== ENCOUNTER 2024-12-11 23:17 | Observation (INO) | payer MEDICAID, SELFPAY ==
--- OUTSIDE RECORDS SUMMARY | 2024-12-11 23:22 | XMS_ITS | CCD ---
Author Organization [facility] Care Team Providers Care Bander And Cellophaner Machine Helper Name Role Phone CLARA JAMA Unavailable Unavail able SERENITY MALDONADO Unavailable Unavailable OKSANA CARO Unavailable UnaNAGA Bai Unavailable Unavailable BARBOSA, LUKE MALIK Unavailable Unavailable Eloisa Nguyen R Unavailable Unavailable Patrick, Eloisa R Unavailable Unavailable Barbosa, Luke Unavailable Unavailable Pendleton, Christian A Unavailable Unavailable Barbosa, Luke Unavailable Unavailable Pendleton, Christian A Unavailable Unavailable Barbosa, Luke Unavailable Unavailable Shekhar, Christian A Unavailable Unavailable Barbosa, Luke Unavailable Unavailable Pendleton, Christian A Unavailable Unavailable Barbosa, Luke Unavailable Unavailable Shekhar, Christian A Unavailable Unavailable Pendleton, Christian A Unavailable Unavailable Barbosa, Ulke Unavailable Unavailable Pendleton, Christian A Unavailable Unavailable Barbosa, Luke Unavailable Unavailable Pendleton, Christian A Unavailable Unavailable Shekhar, Christian A Unavailable Unavailable Barbosa, Luke Unavailable Unavailable Barbosa, Luke Unavailable Unavailable Woo, Emiliano Unavailable Unavailable Woo, Emiliano Unavailable Unavailable Eloisa Nguyen R Unavailable Unavailable Barbosa, Luke Unavailable Unavailable Barbosa, Luke Unavailable Unavailable Oscar, Jag W Unavailable Unavailable Oscar, Jag W Unavailable Unavailable Pendleton, Christian A Unavailable Unavailable Barbosa, Luke Unavailable Unavailable Pendleton, Christian A Unavailable Unavailable Barbosa, Luke Unavailable [...] No Doctor Assigned, Nodr Unavailable Unavail able [place], Jag W Unavailable Unavailable [place], Jag W Unavailable Unavailable Barbosa, Luke Unavailable Unavailable No Doctor Assigned, Nodr Unavailable Unavail able Gamaliel Savage Unavailable Unavailable Barbosa, Luke Unavailable Unavailable Hannah, Aaron A Unavailable Unavailable Hannah, Aaron A Unavailable Unavailable Patrick, Eloisa R Unavailable Unavailable Patrick, Eloisa R Unavailable Unavailable Barbosa, Luke Unavailable Unavailable Frank, Juanita Unavailable Unavailable Frank, Juanita Unavailable Unavailable Barbosa, Luke Unavailable Unavailable Pendleton, Christian A Unavailable Unavailable Pendleton, Christian A Unavailable Unavailable Barbosa, Luke Unavailable Unavailable Pendleton, Christian A Unavailable Unavailable Barbosa, Luke Unavailable Unavailable Barbosa, Luke Unavailable Unavailable Oscar, Jag W Unavailable Unavailable Oscar, Jag W Unavailable Unavailable Pendleton, Christian A Unavailable Unavailable Barbosa, Luke Unavailable Unavailable Gamaliel Savage Unavailable Unavailable Gamaliel Savage Unavailable Unavailable Barbosa, Luke Unavailable Unavailable Pendleton, Christian A Unavailable Unavailable Barbosa, Luke Unavailable [...] Emergency Provider SADAF Wyatt Primary Care Provider [facility] Elle Whitney Emergency Provider DIANA ., DR ACOSTA Consulting Unavailable SOUTH [...] Admitting Unavailable WILLIAMS ., ELENA Attending Unavailable [facility] Primary Care Unavailable WILLIAMS ., ELENA Consulting [...] Admit Provider DO Arden Orozco Attending Provider [facility] Igor Other Provider UnavailMD Juan Edwards Other Provider HAROON Monique Other Provider [phone] MD Jacques Valerio Other Provider [phone] MD Edith Urias Other Provider SADAF Wyatt Primary Care Provider Meagan, [facility] Elle Whitney Emergency Provider [phone] BRANNON Valencia Emergency Provider Andie Johnson Unavailable Unallocated, [place] Provider Primary Care Provider Unallocated Beatrice CHAUs Provider Primary Care Provi kwabena Andie Wyatt PA-C Primary Care Provider Diana DO, Cuong Attending Provider [phone] Andie Wyatt Primary Care Unavailable Diana, Cuong Attending Unavailable Diana, Cuong Admitting Unavailable Andie Wyatt PA-C Primary Care Provider DIANA, CUONG R Referring Unavailable ANDIE WYATT Primary Care Unavailable AMELIA ASHWIN Attending Unavailable ANDIE WYATT Referring Unavailable ANDIE WYATT Primary Care Unavailable Andie Wyatt PA-C Primary Care Provider AMAURI RODRIGUEZ Referring Unavailable ANDIE WYATT Primary Care Unavailable DIANA, CUONG R Referring Unavailable ANDIE WYATT Primary Care Unavailable MALACHI MACDONALD Attending Unavailable DIANA, CUONG R Referring Unavailable ANDIE WYATT Primary Care Unavailable DIANA, CUONG R Referring Unavailable ANDIE WYATT Primary Care Unavailable TORRES, MALACHI Attending Unavailable DIANA, CUONG R Referring Unavailable ANDIE WYATT Primary Care Unavailable DIANA, CUONG Attending Unavailable ELENA FOFANA Attending Unavailable DIANA, CUONG Attending Unavailable DIANA, CUONG Attending Unavailable DIANA, CUONG Referring Unavailable DIANA, CUONG Attending Unavailable DIANA, CUONG Attending Unavailable DIANA, CUONG Attending Unavailable DIANA, CUONG Attending Unavailable CUONG ORTIZ Attending Unavailable CUONG ORTIZ Attending Unavailable Allergies Allergy Classification Reported Allergen(s) Allergy Type Date of Onset Reaction(s) Facility (2 sources) Bee; Translations: [BEES] Propensity to adverse reactions (disorder) 12-01-19 18 [facility] Repository (2 sources) Mold spore; Translations: [MOLD SPORES] Propensity to adverse reactions (disorder) 12-01-19 18 [facility] Repository (20 sources) Penicillins; Translations: [PENICILLINS] Propensity to adverse reactions to drug (disorder) 11-27-19 14 [facility] Repository (18 sources) Sulfonamides (Antibiotic); Translations: [SULFA (SULFONAMIDE ANTIBIOTICS)] Propensity to adverse reactions to drug (disorder) 12-01-19 18 [facility] Repository (1 source) Bee/Wasp/Ant venom; Translations: [Bee Stings] Propensity to adverse reactions to drug (disorder) [facility] Repository (6 sources) mold extract; Translations: [Mold] Drug Allergy 08-13-19 25 [facility] Repository (1 source) Sulfonamides (Antibiotic); Translations: [sulfa drugs] Propensity to adverse reactions to drug (disorder) [facility] Repository (20 sources) bee venom; Translations: [BEE VENOM] Propensity to adverse reactions to drug (disorder) 07-18-19 18 [facility] Repository (1 source) OTHER; Translations: [OTHER] Propensity to adverse reactions to food (disorder) 11-22-19 18 [facility] Repository (20 sources) MOLDS & SMUTS; Translations: [MOLDS & SMUTS] Propensity to adverse reactions to drug (disorder) 07-18-19 18 [facility] Repository (20 sources) SULFA ANTIBIOTICS; Translations: [SULFA ANTIBIOTICS] Propensity to adverse reactions to drug (disorder) 07-18-19 18 [facility] Repository (1 source) Sulfonamides (Antibiotic) Drug allergy (disorder) 11-27-[address] [facility] Repository (2 sources) Penicillin; Translations: [penicillin V] Drug Allergy 03-15-19 92 [facility] (2 sources) Sulfacetamide; Translations: [sulfacetamide] Drug Allergy 03-15-19 [facility] (9 sources) Bee Venom Protein (Honey Bee); Translations: [BEE VENOM PROTEIN (HONEY BEE)] Propensity to adverse reactions to drug 03-27-20 [facility] (20 sources) Bee pollen Allergy to substance 08-13-19 [facility] (20 sources) Penicillin G Drug Allergy 08-13-19 [facility] (20 sources) Sulfamethoxazole Allergy to substance 08-13-19 [facility] Medications Current Medications Medication Drug Class(es) [...] 20, 2022 1:00am December 18, 2022 11:25pm [id number] 0.3 ml EPINEPHrine 1 mg/ml auto-injector (12 sources) alpha-Adrenergic Agonist, beta-Adrenergic Agonist, Catecholamine Start: 08-29-2024 EPINEPHrine (Epipen) 0.3 MG/0.3ML injection syringe 08/29/2024 Active fluconazole 10 mg/ml oral suspension (7 sources) Azole Antifungal Start: 08-06-2022 fluconazole (DIFLUCAN) 10 mg/mL suspension 08/06/2022 Active fluticasone propionate 0.05 mg/actuat metered dose nasal spray (12 sources) Corticosteroid Start: 06-04-2024 Flonase Allergy Relief 50 MCG/ACT nasal spray 1 (one) time each day at the same time 06/04/2024 Active loratadine 10 mg oral tablet (12 sources) Start: 06-04-2024 loratadine (Claritin) 10 MG tablet 1 (one) time each day at the same time 06/04/2024 Active 24 hr metoprolol succinate 50 mg extended release oral tablet (3 sources) beta-Adrenergic Farheen Start: 02-27-2023 take 1 tablet by mouth every twenty-four hours in the morning metoprolol succinate XL (Toprol-XL) 50 MG 24 hr tablet Take 50 mg by mouth in the morning. 0 02/27/2023 Active [place] (No Known Home Meds) (2 sources) Start: 12-18-2022 [place] (No Known Home Meds) Active December 18, 2022 12:00am ondansetron 4 mg disintegrating oral tablet (7 sources) Serotonin-3 Receptor Antagonist take 1 tablet by mouth every eight hours as needed for nausea and vomiting ondansetron ODT (ZOFRAN ODT) 4 mg disintegrating tablet Dissolve 1 tablet (4 mg total) on tongue every 8 (eight) hours as needed for nausea or vomiting. Active 25/iron fum/folic/dha (-1 ORAL) (7 sources) take 1 capsule by mouth in the morning 25/iron fum/folic/dha (-1 ORAL) Take 1 capsule by mouth in the morning. Active take 1 capsule by mouth once ysabel ly 25/iron fum/folic/dha (-1 ORAL) Take 1 capsule by mouth once daily. Active 25/iron fum/folic/dha (-1 ORAL) Take by mouth. 0 Active Wmihvuwv-Nbi-Uu-FA (, w/Iron & FA,) 27-0.8 MG tablet (3 sources) Multivi t-Min-Fe-FA (, w/Iron & FA,) 27-0.8 MG tablet 1 (one) time each day at the same time. 0 Active GB-Ula-SS-Hollister-3 ( Gummies/DHA & FA) 0.4-32.5 MG chewable tablet (3 sources) Start: 07-09-2023 End: 08-08-2023 RB-Alo-FN-Hollister-3 ( Gummies/DHA & FA) 0.4-32.5 MG chewable tablet Indications: 18 weeks gestation of Chew 0.4 mg in the morning. 30 tablet 11 07/09/2023 08/08/2023 Active Vit-Fe Fumarate-FA (PNV Plus Multivitamin) 27-1 MG tablet (20 sources) Start: 04-29-2024 take 1 tablet by mouth once daily Vit-Fe Fumarate-FA (PNV Plus Multivitamin) 27-1 MG tablet Indications: First trimester ([facility]) Take 1 tablet by mouth Daily 30 tablet 04/29/2024 Active Start: 04-29-2024 take 1 tablet by [facility] once daily Vit-Fe Fumarate-FA (PNV Plus Multivitamin) 27-1 MG tablet Indications: First trimester Take 1 tablet by mouth Daily 30 tablet 04/29/2024 Active promethazine hydrochloride 12.5 mg oral tablet (6 sources) Phenothiazine Start: 05-12-2024 End: 08-10-2024 take [...] sources) Subarachnoid hemorrhage 12-19-2022 Chronic Alcohol-related disorders (7 sources) alcohol syndrome; 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)] Onset: 09-10-2022 09-10-2022 Chronic Anxiety disorders (14 sources) Anxiety; Translations: [Anxiety disorder, unspecified] Onset: 09-10-2022 09-10-2022 Chronic Attention-deficit, conduct, and disruptive behavior disorders (7 sources) Attention deficit hyperactivity disorder; Translations: [Attention-deficit [...] [Missed period] Onset: 12-26-2021 Chronic Mood disorders (14 sources) Bipolar disorder; Translations: [Bipolar disorder, unspecified] [...] not applicable or unspecified] 08-27-2024 Episodic Other complications of (1 source) Supervision of high risk , unspecified, unspecified trimester; Translations: [Supervision of high risk , unspecified, unspecified trimester] Onset: 11-16-2024 Episodic Other congenital anomalies (1 source) Multiple congenital malformations, not elsewhere classified; Translations: [Multiple congenital malformations, not elsewhere classified] Onset: 12-02-2017 Chronic Other congenital anomalies (7 sources) Talipes equinovarus; Translations: [Other specified congenital [...] of ] 09-10-2024 Episodic Residual codes; unclassified (4 sources) Gestation period, 28 weeks; Translations: [28 weeks gestation of ] 10-12-2024 Episodic Residual codes; unclassified (2 sources) Gestation period, 30 weeks; Translations: [30 weeks gestation of ] 10-26-2024 Episodic Residual codes; unclassified (2 sources) Gestation period, 33 weeks; Translations: [33 weeks gestation of ] 11-10-2024 Episodic Residual codes; unclassified (1 source) Family history of other specified conditions; Translations: [Family history of other specified conditions] Onset: 09-28-2024 Episodic Residual codes; unclassified (14 sources) Gestation period, 34 weeks; Translations: [34 weeks gestation of ] Onset: 11-23-2024 11-23-2024 Episodic Residual codes; unclassified (2 sources) Gestation period, 35 weeks; Translations: [35 weeks gestation of ] 11-30-2024 Episodic Residual codes; unclassified (2 sources) Gestation period, 36 weeks; Translations: [36 weeks gestation of ] 12-07-2024 Episodic Screening and history of mental health and substance abuse codes (1 source) Personal history of nicotine dependence; Translations: [PERSONAL HISTORY OF NICOTINE DEPEND] Onset: 08-15-2022 Episodic Short gestation; low weight; and growth retardation (2 sources) Hhxpf-eoq-xofkm baby; Translations: [ small for gestational age, unspecified weight] 10-26-2024 Episodic Skin and subcutaneous tissue infections (9 sources) Abscess of chest wall; Translations: [Cutaneous abscess of chest wall] 02-05-2022 Episodic Unclassified (1 source) 39 weeks gestation of ; Translations: [39 weeks gestation of ] Onset: 12-02-2017 Unclassified (2 sources) anomaly Onset: 11-30-2017 Unclassified (3 sources) 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; Translations: [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] Onset: 07-05-2022 Unclassified (20 sources) OB Reminders Onset: 06-23-2024 06-23-2024 Unclassified [...] 3RD TRI] Onset: 06-16-2022 Episodic Mood disorders (7 sources) Mood disorders Onset: 05-02-2022 05-02-2022 Other [...] MOTHER] Onset: 03-20-2022 Episodic Other complications of (12 sources) Supervision of with other poor reproductive [...] 09-30-2023 Episodic Unclassified (1 source) 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 Ordering Physician: Cuong Ortiz D.O. Date of Service: 12/08/24 Procedure(s): US OB BPP w non-stress Accession Number(s): [id number] cc: Cuong Ortiz D.O.; Ramon Avila M.D. [place] [address] Patient Name: ZULEIKA WYATT MRN: [id number]:[id number] date: 1990 Sex: F Assigned Patient Location: [facility] Current Patient Location: [facility] Accession/Order Number: [id number] Exam Date: 12/08/2024 11:48 Report Date: 12/08/2024 11:51 At the request of: CUONG ORTIZ DO Procedure: US OB BPP w [...] Mahan M.D. 12/08/2024 11:51 AM Dictation Location: [place] [address] Electronically authenticated by: [id number] Y Date: 12/08/2024 11:51 Dictated By: Adela Mahan M.D. Signed By: 12/08/24 1154 DD/ 1151 TD/TT: Cloth Shader: [facility] Radiology, Radiologi MD ivelisse - 12/08/2024 [place] [address] Ultrasound Report Signed Patient: ZULEIKA WYATT MR#: [id number] : 1990 Acct:[id number] Age/Sex: 34 / F ADM Date: 12/08/24 Loc: US Attending Dr: Cuong Ortiz D.O. Ordering Physician: Cuong Ortiz D.O. Date of Service: 12/08/24 Procedure(s): US OB BPP w non-stress Accession Number(s): [id number] cc: Cuong Ortiz D.O.; Ramon Avila M.D. The [place] [id number] Patient Name: ZULEIKA WYATT MRN: [facility]:[id number] date: 1990 Sex: F Assigned Patient Location: [facility] Current Patient Location: [facility] Accession/Order Number: [id number] Exam Date: 12/08/2024 11:48 Report Date: 12/08/2024 11:51 At the request of: CUONG ORTIZ DO Procedure: US OB BPP w [...] Mahan M.D. 12/08/2024 11:51 AM Dictation Location: [place] [address] Electronically authenticated by: [id number] Y Date: 12/08/2024 11:51 Dictated By: Adela Mahan M.D. Signed By: 12/08/24 1154 DD/ 1151 TD/TT: Cloth Shader: [facility] Radiology Study observation (narrative) [facility] US OB BPP W NON-STRESS Ordered By: Radiologist Radiology on 12-08-2024 [facility] Work Phone: No Panel InformationOrdered By: Radiologist Radiology on 12-01-2024 [facility] Work Phone: No Panel Informationon 12-01 Radiology Study observation (narrative) [facility] OB BPP W NON-STRESS on 12-01-2024 [place] [address] Ultrasound Report Signed Patient: ZULEIKA WYATT MR#: [id number] : 1990 Acct:[id number] Age/Sex: 34 / F ADM Date: 12/01/24 Loc: US Attending Dr: Cuong Ortiz D.O. Ordering Physician: Cuong Ortiz D.O. Date of Service: 12/01/24 Procedure(s): US OB BPP w non-stress Accession Number(s): [id number] cc: Cuong Ortiz D.O.; Ramon Avila M.D. The [place] [id number] Patient Name: ZULEIKA WYATT MRN: [id number] date: 1990 Sex: F Assigned Patient Location: Current Patient Location: Accession/Order Number: [id number] Exam Date: 12/01/2024 11:04 Report Date: 12/01/2024 11:12 At the request of: CUONG ORTIZ DO Procedure: US OB growth CLINICAL [...] Mahan M.D. 12/01/2024 11:12 AM Dictation Location: [place] [address] Electronically authenticated by: [id number] Y Date: 12/01/2024 11:12 Dictated By: Adela Mahan M.D. Signed By: 12/01/24 1115 DD/ 1112 TD/TT: Cloth Shader: [facility] Radiology, Radiologi MD ivelisse - 12/01/2024 [place] [address] Ultrasound Report Signed Patient: ZULEIKA WYATT MR#: [id number] : 1990 Acct:[id number] Age/Sex: 34 / F ADM Date: 12/01/24 Loc: US Attending Dr: Cuong Ortiz D.O. Ordering Physician: Cuong Ortiz D.O. Date of Service: 12/01/24 Procedure(s): US OB BPP w non-stress Accession Number(s): [id number] cc: Cuong Ortiz D.O.; Ramon Avila M.D. The [place] [id number] Patient Name: ZULEIKA WYATT MRN: [facility]:[id number] date: 1990 Sex: F Assigned Patient Location: Current Patient Location: Accession/Order Number: [id number] Exam Date: 12/01/2024 11:04 Report Date: 12/01/2024 11:12 At the request of: CUONG ORTIZ DO Procedure: US OB growth CLINICAL [...] Mahan M.D. 12/01/2024 11:12 AM Dictation Location: [place] [address] Electronically authenticated by: [id number] Y Date: 12/01/2024 11:12 Dictated By: Adela Mahan M.D. Signed By: 12/01/24 1115 DD/ 1112 TD/TT: Cloth Shader: [facility] OB GROWTHon 12-01-2024 [place] [address] Ultrasound Report Signed Patient: ZULEIKA WYATT MR#: [id number] : 1990 Acct:[id number] Age/Sex: 34 / F ADM Date: 12/01/24 Loc: US Attending Dr: Cuong Ortiz D.O. Ordering Physician: Cuong Ortiz D.O. Date of Service: 12/01/24 Procedure(s): US OB growth Accession Number(s): [id number] cc: Cuong Ortiz D.O.; Ramon Avila M.D. The [address] [address] Patient Name: ZULEIKA WYATT MRN: [id number] date: 1990 Sex: F Assigned Patient Location: [facility] Current Patient Location: Accession/Order Number: [id number] Exam Date: 12/01/2024 11:04 Report Date: 12/01/2024 11:12 At the request of: CUONG ORTIZ DO Procedure: US OB growth CLINICAL [...] Mahan M.D. 12/01/2024 11:12 AM Dictation Location: [place] [address] Electronically authenticated by: [id number] Y Date: 12/01/2024 11:12 Dictated By: Adela Mahan M.D. Signed By: 12/01/24 1115 DD/ 1112 TD/TT: Cloth Shader: [facility] Radiology, Rosendaogtoi oviedo MD - 12/01/[address] [address] Ultrasound Report Signed Patient: ZULEIKA WYATT MR#: [id number] : 1990 Acct:[id number] Age/Sex: 34 / F ADM Date: 12/01/24 Loc: US Attending Dr: Cuong Ortiz D.O. Ordering Physician: Cuong Ortiz D.O. Date of Service: 12/01/24 Procedure(s): US OB growth Accession Number(s): [id number] cc: Cuong Ortiz D.O.; Ramon Avila M.D. The [place] [id number] Patient Name: ZULEIKA WYATT MRN: [facility]:[id number] date: 1990 Sex: F Assigned Patient Location: [facility] Current Patient Location: Accession/Order Number: [id number] Exam Date: 12/01/2024 11:04 Report Date: 12/01/2024 11:12 At the request of: CUONG ORTIZ DO Procedure: US OB growth CLINICAL [...] Mahan M.D. 12/01/2024 11:12 AM Dictation Location: [place] [address] Electronically authenticated by: [id number] Y Date: 12/01/2024 11:12 Dictated By: Adela Mahan M.D. Signed By: 12/01/24 1115 DD/ 1112 TD/TT: Cloth Shader: [facility] Urinalysis macro (dipstick) panel (U)on 11-30-2024 Bilirubin, UA Negative Negative - 4(70) +++ mg/dL [facility] Blood, UA Negative Negative - 50 Rakesh/mcL [facility] Clarity, UA Clear [facility] Color, UA Yellow [facility] Glucose, UA Negative Negative - 1999(110) ++++ mg/dL [facility] Interpretation and review of laboratory results Abnormal [facility] Ketones, UA Negative Negative - 160(16) ++++ mg/dL [facility] Leukocytes, UA Positive Negative - 500+++ Matti/mcL [facility] Comment on above: Moderate Nitrite, UA Negative Negative - Positive [facility] pH, UA 7.5 5 - 9 [facility] Protein, UA Negative Negative - 1999(20) ++++ mg/dL [facility] Spec Grav, UA 1.02 1 - 1.03 [facility] Urobilinogen, UA 0.2 0.2 - 12 mg/dL [facility] OB BPP W NON-STRESS on 11-24-[address] [address] Ultrasound Report Signed Patient: ZULEIKA WYATT MR#: [id number] : 1990 Acct:[id number] Age/Sex: 34 / F ADM Date: 11/24/24 Loc: [facility] 250-[address]: Cuong Ortiz D.O. Ordering Physician: Cuong Ortiz D.O. Date of Service: 11/24/24 Procedure(s): US OB BPP w non-stress Accession Number(s): [id number] cc: Cuong Ortiz D.O.; Ramon Avila M.D. The [address] [address] Patient Name: ZULEIKA WYATT MRN: [id number] date: 1990 Sex: F Assigned Patient Location: [facility] Current Patient Location: [facility] Accession/Order Number: [id number] Exam Date: 11/24/2024 09:41 Report Date: 11/24/2024 09:42 At the request of: CUONG ORTIZ DO Procedure: US OB BPP w [...] 11/24/2024 9:42 AM Dictation Location: [place] [address] Electronically authenticated by: [id number] Y Date: 11/24/2024 09:42 Dictated By: Adela Mahan M.D. Signed By: 11/24/2445 DD/ 1 TD/TT: Cloth Shader: [facility] Radiology, Radiologtoi oviedo MD - 11/24/2024 [place] [address] Ultrasound Report Signed Patient: ZULEIKA WYATT MR#: [id number] : 1990 Acct:[id number] Age/Sex: 34 / F ADM Date: 11/24/24 Loc: [facility] 250-[address]: Cuong Ortiz D.O. Ordering Physician: Cuong Ortiz D.O. Date of Service: 11/24/24 Procedure(s): US OB BPP w non-stress Accession Number(s): [id number] cc: Cuong Ortiz D.O.; Ramon Avila M.D. The [place] [address] Patient Name: ZULEIKA WYATT MRN: [facility]:[id number] date: 1990 Sex: F Assigned Patient Location: [facility] Current Patient Location: [facility] Accession/Order Number: [id number] Exam Date: 11/24/2024 09:41 Report Date: 11/24/2024 09:42 At the request of: CUONG ORTIZ DO Procedure: US OB BPP w [...] 11/24/2024 9:42 AM Dictation Location: [place] [address] Electronically authenticated by: [id number] Y Date: 11/24/2024 09:42 Dictated By: Adela Mahan M.D. Signed By: 11/24/2445 DD/ 1 TD/TT: Cloth Shader: [facility] Radiology Study observation (narrative) [facility] US OB BPP W NON-STRESS Ordered By: Radiologist Radiology on 11-24-2024 [facility] Work Phone: Urinalysis macro (dipstick) panel (U)on 11-23-2024 Bilirubin, UA Negative Negative - 4(70) +++ mg/dL [facility] Blood, UA Negative Negative - 50 Rakesh/mcL [facility] Clarity, UA Clear [facility] Color, UA Yellow [facility] Glucose, UA Negative Negative - 2000(110) ++++ mg/dL [facility] Interpretation and review of laboratory results Abnormal [facility] Ketones, UA Positive Negative - 160(16) ++++ mg/dL [facility] Comment on above: trace Leukocytes, UA Positive Negative - 500+++ Matti/mcL [facility] Comment on above: small Nitrite, UA Negative Negative - Positive [facility] pH, UA 6.5 5 - 9 [facility] Protein, UA Trace Negative - 2000(20) ++++ mg/dL [facility] Spec Grav, UA 1.02 1 - 1.03 [facility] Urobilinogen, UA 1.0 0.2 - 12 mg/dL [facility] US OB BPP W NON-STRESS on 11-17-[address] [address] Ultrasound Report Signed Patient: ZULEIKA WYATT MR#: [id number] : 1990 Acct:[id number] Age/Sex: 34 / F ADM Date: 11/17/24 Loc: US Attending Dr: Cuong Ortiz D.O. Ordering Physician: Cuong Ortiz D.O. Date of Service: 11/17/24 Procedure(s): US OB BPP w non-stress Accession Number(s): [id number] cc: Cuong Ortiz D.O.; Ramon Avila M.D. [place] [address] Patient Name: ZULEIKA WYATT MRN: [facility]:[id number] date: 1990 Sex: F Assigned Patient Location: [facility] Current Patient Location: Accession/Order Number: [id number] Exam Date: 11/17/2024 10:16 Report Date: 11/17/2024 10:17 At the request of: CUONG ORTIZ DO Procedure: US OB BPP w [...] Mahan M.D. 11/17/2024 10:17 AM Dictation Location: [place] [address] Electronically authenticated by: [id number] Y Date: 11/17/2024 10:17 Dictated By: Adela Mahan M.D. Signed By: 11/17/24 1019 DD/ 1017 TD/TT: Cloth Shader: [facility] Radiology, Radiologi MD ivelisse - 11/17/2024 [place] [address] Ultrasound Report Signed Patient: ZULEIKA WYATT MR#: [id number] : 1990 Acct:[id number] Age/Sex: 34 / F ADM Date: 11/17/24 Loc: US Attending Dr: Cuong Ortiz D.O. Ordering Physician: Cuong Ortiz D.O. Date of Service: 11/17/24 Procedure(s): US OB BPP w non-stress Accession Number(s): [id number] cc: Cuong Ortiz D.O.; Ramon Avila M.D. The [place] [address] Patient Name: ZULEIKA WYATT MRN: [id number]:[id number] date: 1990 Sex: F Assigned Patient Location: [facility] Current Patient Location: Accession/Order Number: [id number] Exam Date: 11/17/2024 10:16 Report Date: 11/17/2024 10:17 At the request of: CUONG ORTIZ DO Procedure: US OB BPP w [...] Mahan M.D. 11/17/2024 10:17 AM Dictation Location: [place] [address] Electronically authenticated by: [id number] Y Date: 11/17/2024 10:17 Dictated By: Adela Mahan M.D. Signed By: 11/17/24 1019 DD/ 1017 TD/TT: Cloth Shader: [facility] Radiology Study observation (narrative) [facility] US OB BPP W NON-STRESS Ordered By: Radiologist Radiology on 11-17-2024 [facility] Work Phone: US OB BPP W NON-STRESS on 11-10-2024 [place] [address] Ultrasound Report Signed Patient: ZULEIKA WYATT MR#: [id number] : 1990 Acct:[id number] Age/Sex: 34 / F ADM Date: 11/10/24 Loc: US Attending Dr: Cuong Ortiz D.O. Ordering Physician: Cuong Ortiz D.O. Date of Service: 11/10/24 Procedure(s): US OB BPP w non-stress Accession Number(s): [id number] cc: Cuong Ortiz D.O.; Ramon Avila M.D. 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 The reported gestational age is 33 weeks 0 days. The heart rate [id number] beats per minute. FINDINGS: TONE: 1 or [...] Mahan M.D. 11/10/2024 10:08 AM Dictation Location: [place] [address] Electronically authenticated by: [id number] Y Date: 11/10/2024 10:08 Dictated By: Adela Mahan M.D. Signed By: 11/10/24 1011 DD/ 1008 TD/TT: Cloth Shader: [facility] Radiology, Radiologi MD ivelisse - 11/10/2024 [place] [address] Ultrasound Report Signed Patient: ZULEIKA WYATT MR#: [id number] : 1990 Acct:[id number] Age/Sex: 34 / F ADM Date: 11/10/24 Loc: US Attending Dr: Cuong Ortiz D.O. Ordering Physician: Cuong Ortiz D.O. Date of Service: 11/10/24 Procedure(s): US OB BPP w non-stress Accession Number(s): [id number] cc: Cuong Ortiz D.O.; Ramon Avila M.D. 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 The reported gestational age is 33 weeks 0 days. The heart rate [id number] beats per minute. FINDINGS: TONE: 1 or [...] This is in normal range. Total score: 8/ US/US OB BPP w non-stress IMPRESSION: NORMAL BIOPHYSICAL PROFILE Impression dictated by: Adela Mahan M.D. 11/10/2024 10:08 AM Dictation Location: [place] [address] Electronically authenticated by: [id number] Y Date: 11/10/2024 10:08 Dictated By: Adela Mahan M.D. Signed By: 11/10/24 1011 DD/ 1008 TD/TT: Cloth Shader: [facility] Radiology Study observation (narrative) [facility] US OB BPP W NON-STRESS Ordered By: Radiologist Radiology on 11-10-2024 [facility] Work Phone: Urinalysis macro (dipstick) panel (U)on 11-10-2024 Bilirubin, UA Negative Negative - 4(70) +++ mg/dL [facility] Blood, UA Negative Negative - 50 Rakesh/mcL [facility] Clarity, UA Clear [facility] Color, UA [place] [facility] Glucose, UA Negative Negative - 1999(110) ++++ mg/dL [facility] Interpretation and review of laboratory results Abnormal [facility] Ketones, UA Negative Negative - 160(16) ++++ mg/dL [facility] Leukocytes, UA Trace Negative - 500+++ Matti/mcL [facility] Nitrite, UA Negative Negative - Positive [facility] pH, UA 6 5 - 9 [facility] Protein, UA Negative Negative - 2000(20) ++++ mg/dL [facility] Spec Grav, UA 1.025 1 - 1.03 [facility] Urobilinogen, UA 0.2 0.2 - 12 mg/dL [facility] OB BPP W NON-STRESS on 11-03-2024 [place] [address] Ultrasound Report Signed Patient: ZULEIKA WYATT MR#: [id number] : 1990 Acct:[id number] Age/Sex: 34 / F ADM Date: 11/03/24 Loc: US Attending Dr: Cuong Ortiz D.O. Ordering Physician: Cuong Ortiz D.O. Date of Service: 11/03/24 Procedure(s): US OB BPP w non-stress Accession Number(s): [id number] cc: Cuong Ortiz D.O.; Ramon Avila M.D. The [place] [address] Patient Name: ZULEIKA WYATT MRN: [facility]:[id number] date: 1990 Sex: F Assigned Patient Location: US Current Patient Location: Accession/Order Number: [id number] Exam Date: 11/03/2024 15:29 Report Date: 11/03/2024 15:31 At the request of: CUONG ORTIZ DO Procedure: US OB BPP w non-stress Ultrasound obstetrical biophysical profile HISTORY: Hollister cisterna magna. In adequate breathing movement. Adequate gross body movement, tone and amniotic fluid volume. Total score 6 out of 8. Amniotic fluid index 11.1 cm within normal limits. heart rate 148 bpm. US/US OB BPP w non-stress IMPRESSION: Suboptimal biophysical profile. Score 6 out of 8. Impression dictated by: Aaron Boyce M.D. 11/03/2024 3:31 PM Dictation Location: [place] [address] Electronically authenticated by: [id number] Y Date: 11/03/2024 15:31 Dictated By: Aaron Boyce D.O. Signed By: 11/03/24 1533 DD/ 1531 TD/TT: Cloth Shader: [facility] Radiology, Radiologi MD ivelisse - 11/03/2024 [place] [address] Ultrasound Report Signed Patient: ZULEIKA WYATT MR#: [id number] : 1990 Acct:[id number] Age/Sex: 34 / F ADM Date: 11/03/24 Loc: US Attending Dr: Cuong Ortiz D.O. Ordering Physician: Cuong Ortiz D.O. Date of Service: 11/03/24 Procedure(s): US OB BPP w non-stress Accession Number(s): [id number] cc: Cuong Ortiz D.O.; Ramon Avila M.D. The [place] [address] Patient Name: ZULEIKA WYATT MRN: [id number]:[id number] date: 1990 Sex: F Assigned Patient Location: US Current Patient Location: Accession/Order Number: [id number] Exam Date: 11/03/2024 15:29 Report Date: 11/03/2024 15:31 At the request of: CUONG ORTIZ DO Procedure: US OB BPP w non-stress Ultrasound obstetrical biophysical profile HISTORY: Hollister cisterna magna. In adequate breathing movement. Adequate gross body movement, tone and amniotic fluid volume. Total score 6 out of 8. Amniotic fluid index 11.1 cm within normal limits. heart rate 148 bpm. US/US OB BPP w non-stress IMPRESSION: Suboptimal biophysical profile. Score 6 out of 8. Impression dictated by: Aaron Boyce M.D. 11/03/2024 3:31 PM [facility] Electronically authenticated by: [id number] Y Date: 11/03/2024 15:31 Dictated By: Aaron Boyce D.O. Signed By: 11/03/24 1533 DD/ 153 TD/TT: Cloth Shader: [facility] Radiology Study observation (narrative) [facility] US OB BPP W NON-STRESS Ordered By: Radiologist Radiology on 11-03-2024 [facility] Work Phone: US OB GROWTHon 11-03-2024 [place] [address] Ultrasound Report Signed Patient: ZULEIKA WYATT MR#: [id number] : 1990 Acct:[id number] Age/Sex: 34 / F ADM Date: 11/03/24 Loc: US Attending Dr: Cuong Ortiz D.O. Ordering Physician: Cuong Ortiz D.O. Date of Service: 11/03/24 Procedure(s): US OB growth Accession Number(s): [id number] cc: Cuong Ortiz D.O.; Ramon Avila M.D. [address] [address] Patient Name: ZULEIKA WYATT MRN: [facility]:[id number] date: 1990 Sex: F Assigned Patient Location: US Current Patient Location: Accession/Order Number: [id number] Exam Date: 11/03/2024 16:30 Report Date: 11/03/2024 16:34 At the request of: CUONG ORTIZ DO Procedure: US OB growth Limited [...] Boyce M.D. 11/03/2024 4:34 PM Dictation Location: [place] [address] Electronically authenticated by: [id number] Y Date: 11/03/2024 16:34 Dictated By: Aaron Boyce D.O. Signed By: 11/03/24 1636 DD/ 163 TD/TT: Cloth Shader: MARCELA Radiology, Radiologi MD ivelisse - 11/03/2024 The [place] [id number] Ultrasound Report Signed Patient: ZULEIKA WYATT MR#: [id number] : 1990 Acct:[id number] Age/Sex: 34 / F ADM Date: 11/03/24 Loc: US Attending Dr: Cuong Ortiz D.O. Ordering Physician: Cuong Ortiz D.O. Date of Service: 11/03/24 Procedure(s): US OB growth Accession Number(s): [id number] cc: Cuong Ortiz D.O.; Ramon Avila M.D. The [place] [address] Patient Name: ZULEIKA WYATT MRN: [id number]:[id number] date: 1990 Sex: F Assigned Patient Location: US Current Patient Location: Accession/Order Number: [id number] Exam Date: 11/03/2024 16:30 Report Date: 11/03/2024 16:34 At the request of: CUONG ORTIZ DO Procedure: US OB growth Limited [...] Boyce M.D. 11/03/2024 4:34 PM Dictation Location: [place] [address] Electronically authenticated by: [id number] Y Date: 11/03/2024 16:34 Dictated By: Aaron Boyce D.O. Signed By: 11/03/24 163 DD/ 33 TD/TT: Cloth Shader: [facility] Radiology Study observation (narrative) [facility] US OB GROWTHOrdered By: Varun ologist Radiology on 11-03-2024 [facility] Work Phone: [facility] CMP (CMP) (FOR REMOTE FH C USE)on 10-26-2024 Albumin [Mass/Vol] 2.6 g/dL Low 3.4 - 5.0 g/dL [facility] ALBUMIN GLOBULIN RATIO 0.6 NO [facility] ALP [Catalytic activity/Vol] 86 U/L 46 - 116 U[facility] ALT [Catalytic activity/Vol] 14 U/L 14 - 59 U/L [facility] Anion gap [Moles/Vol] 12.1 mmol/L [facility] AST [Catalytic activity/Vol] 15 U/L 15 - 37 U/L [facility] Bilirubin [Mass/Vol] 0.8 mg/dL 0.2 - 1 .0 mg/dL [facility] Calcium [Mass/Vol] 8.8 mg/dL 8.5 - 10. 1 mg/dL [facility] Chloride [Moles/Vol] 102 mmol/L 98 - 10 7 mmol/L [facility] CO2 [Moles/Vol] 24 mmol/L 21.0 - 32.0 mmol/L [facility] Creatinine [Mass/Vol] 0.55 mg/dL 0.55 - 1.02 mg/dL [facility] GFR/1.73 sq M.predicted CKD-EPI (S/P/Bld) [Vol rate/Area] >60 >=60 mL/min/1.7 3m 2 [facility] Globulin (S) [Mass/Vol] 4.3 g/dL [facility] Glucose [Mass/Vol] 82 mg/dL 74 - 106 mg/dL [facility] Interpretation and review of laboratory results Abnormal [facility] Potassium [Moles/Vol] 4.1 mmol/L 3.5 - 5.1 mmol/L [facility] Protein [Mass/Vol] 6.9 g/dL 6.4 - 8.2 g/dL [facility] Sodium [Moles/Vol] 134 mmol/L Low 136 - 145 mmol/L [facility]H EGFR-NON AF ITALIAN >60 >=60 mL/min/1.7 3m 2 [facility] Urea nitrogen [Mass/Vol] 6 mg/dL Low 7.0 - 18.0 mg/dL [facility] Urea nitrogen/Creatinine [Mass ratio] 10.9 mg/mg [facility] Urinalysis macro (dipstick) panel (U)on 10-26-2024 Bilirubin, UA Negative Negative - 4(70) +++ mg/dL [facility] Blood, UA Positive Negative - 50 Rakesh/mcL [facility] Comment on above: trace-intact Clarity, UA Clear [facility] Color, UA Yellow [facility] Glucose, UA Negative Negative - 1999(110) ++++ mg/dL [facility] Interpretation and review of laboratory results Abnormal [facility] Ketones, UA Negative Negative - 160(16) ++++ mg/dL [facility] Leukocytes, UA Positive Negative - 500+++ Matti/mcL [facility] Comment on above: small Nitrite, UA Negative Negative - Positive [facility] pH, UA 7 5 - 9 [facility] Protein, UA Negative Negative - 2000(20) ++++ mg/dL [facility] Spec Grav, UA 1.015 1 - 1.03 [facility] Urobilinogen, UA 0.2 0.2 - 12 mg/dL [facility] US OB FOLLOW UP TRANSABDOMIN AL APPROACHon [...] II, MD, PHD at 21-Oct-2024 08:41:57 AM [facility] Normal Not Available Comment on above: Order Comment: US OB SCAN FOR GROWTH Estimated Date of Delivery: 12/29/24 Gestational Age as of 10/12/2024: 28w6d Urinalysis macro (dipstick) panel (U)on 10-12-2024 Bilirubin, UA Negative Negative - 4(70) +++ mg/dL [facility] Blood, UA Negative Negative - 50 Rakesh/mcL [facility] Clarity, UA Clear [facility] Color, UA Yellow [facility] Glucose, UA Negative Negative - 1999(110) ++++ mg/dL [facility] Interpretation and review of laboratory results Abnormal [facility] Ketones, UA Negative Negative - 160(16) ++++ mg/dL [facility] Leukocytes, UA Positive Negative - 500+++ Matti/mcL [facility] Comment on above: small Nitrite, UA Negative Negative - Positive [facility] pH, UA 6 5 - 9 [facility] Protein, UA Trace Negative - 2000(20) ++++ mg/dL [facility] Spec Grav, UA 1.03 1 - 1.03 [facility] Urobilinogen, UA 0.2 0.2 - 12 mg/dL [facility] IGP,APTIMA HPV,AGE GDLNon AGE GDLN ACOG TESTING Note . [facility] Comment on above: TESTS RESULT FLAG UN ITS REF RANGE LAB Clinician Provided Cytology Information Source.............[employer] Other.............. No. of containers..01 ThinPrep Vial Age Nilda VALE Krista... 3065 FLAG LEGEND: L-Low Normal,H-High Normal,LL-Alert Low,HH-Alert High <-Panic Low,>-Panic High,A-Abnormal,AA-Critical Abnormal Performed at: 01 =[address] [address] Joann Dennye MD, HPV APTIMA Negative Negative [facility] Comment on above: This nucleic acid am plification test detects fourteen high- risk HPV types (16,18,31,33,35,39,45,51,52,56,58,59,66,68) without differentiation. Performed at: =[address] [id number] Stained Glass Installer: Joann Denney MD, Phone: [phone] Performed at: [address] [id number] Stained Glass Installer: Joann Denney MD, Phone: [phone] IGP, APTIMA HPV, RFX 16/18,45 Note . [facility] Comment on above: TESTS RESULT FLAG UN ITS REF RANGE LAB DIAGNOSIS: 02 NEGATIVE FOR INTRAEPITHELIAL LESION OR MALIGNANCY. Specimen adequacy: 02 Satisfactory for evaluation. No endocervical component is identified. An endocervical component is not commonly seen in the patient. Performed by: 02 Mindy Martel Supervisor [employer] (ASCP) . 02 Note: Note 02 The [...] <-Panic Low,>-Panic High,A-Abnormal,AA-Critical Abnormal Performed at: [address] [address] Joann Denney MD, [facility] Urinalysis macro (dipstick) panel (U)on 09-14-2024 Bilirubin, UA Negative Negative - 4(70) +++ mg/dL [facility] Blood, UA Negative Negative - 50 Rakesh/mcL [facility] Clarity, UA Clear [facility] Color, UA Yellow [facility] Glucose, UA Negative Negative - 2000(110) ++++ mg/dL [facility] Interpretation and review of laboratory results Normal [facility] Ketones, UA Negative Negative - 160(16) ++++ mg/dL [facility] Leukocytes, UA Negative Negative - 500+++ Matti/mcL [facility] Nitrite, UA Negative Negative - Positive [facility] pH, UA 5.5 5 - 9 [facility] Protein, UA Negative Negative - 1999(20) ++++ mg/dL [facility] Spec Grav, UA 1.03 1 - 1.03 [facility] Urobilinogen, UA 1.0 0.2 - 12 mg/dL [facility] RECURRENT VAGINITIS (HTRX)on 09-11-2024 ATOPOBIUM VAGINAE 0 [facility] ATOPOBIUM VAGINAE Not detected [facility] BVAB 2,3 (BACTERIAL VAGINOSIS ASSOCIATED BACTERIA 2, 3); MOBILUNCUS SPP 0 [facility] BVAB 2,3 (BACTERIAL VAGINOSIS ASSOCIATED BACTERIA 2, 3); MOBILUNCUS SPP Not detected [facility] JEREMY ALBICANS, PARAPSILOSIS, TROPICALIS 0 [facility] JEREMY ALBICANS, PARAPSILOSIS, TROPICALIS Not detected [facility] JEREMY GLABRATA 0 [facility] JEREMY GLABRATA Not detected [facility] JEREMY KRUSEI 0 [facility] JEREMY KRUSEI Not detected [facility] CHLAMYDIA TRACHOMATIS 0 [facility] CHLAMYDIA TRACHOMATIS Not detected N [facility] GARDNERELLA VAGINALIS 0 [facility] GARDNERELLA VAGINALIS Not detected N [facility] MEGASPHAERA (TYPES 1, 2) 0 [facility] MEGASPHAERA (TYPES 1, 2) Not detected [facility] MYCOPLASMA GENITALIUM 0 [facility] MYCOPLASMA GENITALIUM Not detected N [facility] NEISSERIA GONORRHOEAE 0 [facility] NEISSERIA GONORRHOEAE Not detected N [facility] TRICHOMONAS VAGINALIS 0 [facility] TRICHOMONAS VAGINALIS Not detected N [facility] US OB 14+ WEEKS ANATOMY SCAN on [...] II, MD, PHD at 15-Aug-2024 07:21:28 AM [facility] Normal Not Available Comment on above: Order Comment: US OB ANATOMY SINGLE W US OB CERVICAL LENGTH Estimated Date of Delivery: 12/29/24 Gestational Age as of 07/20/2024: 16w6d AFP, SERUM, OPEN SPINA BIFID Aon 07-22-2024 AFP MOM 1.18 . [facility] AFP VALUE 42.2 ng/mL . [facility] COMMENT: Comment . [facility] Comment on above: Alma Chaudhary , Ph.D., [facility] Director References: Available Upon Request. Multiples Of Median Cutoffs For AFP Elevations Briscoe 2.5 Black 2.8 IDD 2.0 Twins 4.5 Abbreviation Definitions IDD - Insulin Dep Diabetes OSBR - Open Spina Bifida Risk For further inquiries contact [employer] at [phone]. This test was developed and its performance characteristics determined by [facility]. It has not been cleared or approved by the Food and Drug Administration. Performed at: [facility] [address] [place], [place] [id number] Stained Glass Installer: Oz Harkins [facility], Phone: [phone] GEST. AGE ON COLLECTION DATE 16.9 . weeks [facility] GESTAT. AGE BASED ON LMP . [facility] Comment on above: Recalculations are n ot recommended when gestational dating by LMP and ultrasound are within 10 days. INSULIN DEP DIABETES No . [facility] INTERPRETATION Comment . [facility] Comment on above: Interpretation: Scre [...] Customer Services to discuss available options. The [employer] recommends amniocentesis be offered to women age 35 and older. [age] [facility] MULTIPLE GESTATION No . [facility] OSBR RISK 1 [place] 6916 . [facility] RACE . [facility] RESULTS Report . [facility] TEST RESULTS: Negative . [facility] WEIGHT 159 . lbs [facility] N N LMP [id number] [phone] N 1 159 N N N N N White/ [facility] Urinalysis macro (dipstick) panel (U)on 07-20-2024 Bilirubin, UA Negative Negative - 4(70) +++ mg/dL [facility] Blood, UA Negative Negative - 50 Rakesh/mcL [facility] Clarity, UA Clear [facility] Color, UA Yellow [facility] Glucose, UA Negative Negative - 2000(110) ++++ mg/dL [facility] Interpretation and review of laboratory results Abnormal [facility] Ketones, UA Negative Negative - 160(16) ++++ mg/dL [facility] Leukocytes, UA Trace Negative - 500+++ Matti/mcL [facility] Nitrite, UA Negative Negative - Positive [facility] pH, UA 6 5 - 9 [facility] Protein, UA Negative Negative - 2000(20) ++++ mg/dL [facility] Spec Grav, UA 1.03 1 - 1.03 [facility] Urobilinogen, UA 0.2 0.2 - 12 mg/dL [facility] ALL CBC WITH AUTO DIFFon BASOPHILS ABSOLUTE AUTO 0 [facility] Basophils/100 WBC (Bld) 0.3 % 0.2 - 2.0 % [facility] Eosinophils/100 WBC (Bld) 0.7 % Low 0.9 - 7.0 % [facility] Erythrocyte distribution width (RBC) [Ratio] 14.4 % 11.0 - 15.0 % [facility] Hematocrit (Bld) [Volume fraction] 42.1 % 36.0 - 48.0 % [facility] Hemoglobin (Bld) [Mass/Vol] 13.6 g/dL 12.0 - 16.0 g/dL [facility] IMMATURE GRANULOCYTES ABS AUTO 0.02 [facility] Immature granulocytes/100 WBC (Bld) 0.3 % 0.0 - 0.5 % [facility] Interpretation and review of laboratory results Abnormal [facility] LYMPHOCYTES ABSOLUTE AUTO 1.2 [facility] Lymphocytes/100 WBC (Bld) 15.9 % Low 20.5 - 60.0 % [facility] MCH (RBC) [Entitic mass] 27.6 pg 26.7 - 34.0 pg [facility] MCHC (RBC) [Mass/Vol] 32.3 g/dL 29.9 - 35.2 g/dL [facility] MCV (RBC) [Entitic vol] 85.4 fL 81.0 - 99.0 fL [facility] MONOCYTES ABSOLUTE AUTO 0.4 [facility] Monocytes/100 WBC (Bld) 5.2 % 1.7 - 12.0 % [facility] NEUTROPHILS ABSOLUTE AUTO 5.7 [facility] Neutrophils/100 WBC (Bld) 77.6 % High 43.0 - 75.0 % [facility] Platelet mean volume (Bld) [Entitic vol] 10 fL 9.5 - 13.5 fL [facility] TBH EO # 0.1 [facility] TBH PLT 194 [facility] TBH RBC 4.93 [facility] TBH WBC 7.4 [facility] Urine Cultureon 06-22-2024 Bacteria identified Cx Nom (U) <9,000 colonies/ml mixed bacterial skin contaminants 2 Days PERFORMED BY: [place] [address] [place] [address] PATHOLOGIST HISTORICAL SOCIETY DIRECTOR JONO WILSON M.D. Normal [facility] Comment on above: Performed By: #### C UU #### [facility] [address] HCG ( test) Ql (U)o n 06-18-2024 Interpretation and review of laboratory results Abnormal [facility] Preg Test, Ur Positive Negative [facility] Urinalysis macro (dipstick) panel (U)on 06-18-2024 Bilirubin, UA Negative Negative - 4(70) +++ mg/dL [facility] Blood, UA Negative Negative - 50 Rakesh/mcL [facility] Clarity, UA Clear [facility] Color, UA Yellow [facility] Glucose, UA Negative Negative - 2000(110) ++++ mg/dL [facility] Interpretation and review of laboratory results Abnormal [facility] Ketones, UA Negative Negative - 160(16) ++++ mg/dL [facility] Leukocytes, UA Negative Negative - 500+++ Matti/mcL [facility] Nitrite, UA Negative Negative - Positive [facility] pH, UA 6.5 5 - 9 [facility] Protein, UA Negative Negative - 2000(20) ++++ mg/dL [facility] Spec Grav, UA 1.015 1 - 1.03 [facility] Urobilinogen, UA 0.2 0.2 - 12 mg/dL [facility] AFP, SERUM, OPEN SPINA BIFID Aon 07-20-2023 AFP MOM 1.21 . [facility] AFP VALUE 70.2 ng/mL . [facility] COMMENT: Comment . [facility] Comment on above: Alma Chaudhary , Ph.D., [facility] Director References: Available Upon Request. Multiples Of Median Cutoffs For AFP Elevations Briscoe 2.5 Black 2.8 IDD 2.0 Twins 4.5 Abbreviation Definitions IDD - Insulin Dep Diabetes OSBR - Open Spina Bifida Risk For further inquiries contact [employer] at [phone]. This test was developed and its performance characteristics determined by [facility]. It has not been cleared or approved by the Food and Drug Administration. Performed at: [facility] [address] [facility], [place], [place] [id number] Stained Glass Installer: Oz Harkins [facility], Phone: [phone] GEST. AGE ON COLLECTION DATE 20.4 . weeks [facility] GESTAT. AGE BASED ON LMP . [facility] Comment on above: Recalculations are n ot recommended when gestational dating by LMP and ultrasound are within 10 days. INSULIN DEP DIABETES No . [facility] INTERPRETATION Comment . [facility] Comment on above: Interpretation: Scre [...] Customer Services to discuss available options. The [employer] recommends amniocentesis be offered to women age 35 and older. [age] [facility] MULTIPLE GESTATION No . [facility] OSBR RISK 1 [place] 6301 . [facility] RACE . [facility] RESULTS Report . [facility] TEST RESULTS: Negative . [facility] WEIGHT 159 . lbs [facility] N N LMP [id number] 3 16 N 1 Y 159 N N N N White/ [facility] Urinalysis macro (dipstick) panel (U)on 07-18-2023 Bilirubin, UA Negative Negative - 4(70) +++ mg/dL [facility] Blood, UA Negative Negative - 50 Rakesh/mcL [facility] Clarity, UA Clear [facility] Color, UA Yellow [facility] Glucose, UA Negative Negative - 2000(110) ++++ mg/dL [facility] Interpretation and review of laboratory results Normal [facility] Ketones, UA Negative Negative - 160(16) ++++ mg/dL [facility] Leukocytes, UA Negative Negative - 500+++ Matti/mcL [facility] Nitrite, UA Negative Negative - Positive [facility] pH, UA 5.5 5 - 9 [facility] Protein, UA Negative Negative - 2000(20) ++++ mg/dL [facility] Spec Grav, UA 1.020 1 - 1.03 [facility] Urobilinogen, UA 1.0 0.2 - 12 mg/dL [facility] Free Cell DNAon 2022 [facility] Amphetamine Screen Ql (U)Ord ered By: Ryan Poe on 12-19-2022 Amphetamines Ql (U) Negative Negative [facility] Automated erythrocytes count in urine sediment (number/area)Ordered By: Ryan Poe on 12-19-2022 RBC Auto (Urine sed) [#/Area] 5-9 [HPF] 0-4 [facility] Automated leukocytes count i n urine sediment (number/area)Ordered By: Ryan Poe on 12-19-2022 WBC Auto (Urine sed) [#/Area] 10-19 [HPF] 0-4 [facility] Barbiturates [Presence] in U rine by Screen methodOrdered By: Ryan Poe on 12-19-2022 Barbiturates Screen Ql (U) Negative Negative [facility] Benzodiazepines Screen Ql (U )Ordered By: Ryan Poe on 12-19-2022 Benzodiazepines Ql (U) Negative Negative [facility] Benzoylecgonine [Presence] i n Urine by Screen methodOrdered By: Ryan Poe on 12-19-2022 Benzoylecgonine Screen Ql (U) Negative Negative [facility] Bilirubin Test strip Ql (U)O rdered By: Ryan Poe on 12-19-2022 Bilirubin Ql (U) Negative Negative [facility] Cannabinoids [Presence] in U rine by Screen methodOrdered By: Ryan Poe on 12-19-2022 Cannabinoids Screen Ql (U) Positive Negative [facility] Comment on above: These are unconfirme d results and should not be used for legal purposes. Drug Cut-Off Concentration: AMPH 1000 ng/mL SEEMA 200 ng/mL LAZ 200 ng/mL COCM 300 ng/mL OP 300 ng/mL PCP 25 ng/mL THC 20 ng/mL Color Auto (U)Ordered By: Fernando Poe on 12-19-2022 Color (U) Yellow Yellow [facility] HCG ( test) IA.rapi d Ql (U)Ordered By: Ryan Poe on 12-19-2022 HCG ( test) Ql (U) Negative [facility] Ketones Auto test strip (U) [Mass/Vol]Ordered By: Ryan Poe on 12-19-2022 Ketones (U) [Mass/Vol] 1+ Negative [facility] Laboratory - UrinalysisOrder ed By: Ryan Poe on 12-19-2022 Hyaline casts LM Ql (Urine sed) 0-8 [LPF] 0-8 [facility] Nitrite Test strip Ql (U)Ord ered By: Ryan Poe on 12-19-2022 Nitrite Ql (U) Negative Negative [facility] Opiates [Presence] in Urine by Screen methodOrdered By: Ryan Poe on 12-19-2022 Opiates Screen Ql (U) Negative Negative [facility] Phencyclidine Screen Ql (U)O rdered By: Ryan Poe on 12-19-2022 Phencyclidine Ql (U) Negative Negative [facility] Protein Auto test strip (U) [Mass/Vol]Ordered By: Ryan Poe on 12-19-2022 Protein (U) [Mass/Vol] Negative Negative [facility] Specific gravity Auto test s trip (U) [Rel density]Ordered By: Ryan Poe on 12-19-2022 Specific gravity (U) [Rel density] 1.025 1.001-1.03 0 [facility] Squamous epithelial cells de tection in urine sediment by light microscopyOrdered By: Ryan Poe on 12-19-2022 Epithelial cells.squamous LM Ql (Urine sed) 3-4 [HPF] 0-2 [facility] Urine bacteria detection by automated methodOrdered By: Ryan Poe on 12-19-2022 Bacteria Auto Ql (U) None seen None Seen [facility] Urine clarity by refractomet ry automatedOrdered By: Ryan Poe on 12-19-2022 Clarity Refractometry automated (U) Clear Clear [facility] Urine culture routineOrdered By: Ryan Poe on 12-19-2022 Bacteria identified Cx Nom (U) 2 Days [facility] Urine glucose measurement by automated test strip (mass/volume)Ordered By: Ryan Poe on 12-19-2022 Glucose Auto test strip (U) [Mass/Vol] Normal mg/dL Normal [facility] Urine hemoglobin detection b y automated test stripOrdered By: Ryan Poe on 12-19-2022 Hemoglobin Auto test strip Ql (U) Negative Negative [facility] Urine leukocyte esterase det ection by automated test stripOrdered By: Ryan Poe on 12-19-2022 Leukocyte esterase Auto test strip Ql (U) 2+ Negative [facility] Urobilinogen Auto test strip (U) [Mass/Vol]Ordered By: Ryan Poe on 12-19-2022 Urobilinogen (U) [Mass/Vol] Normal mg/dL Normal [facility] pH Auto test strip (U)Ordere d By: Ryan Poe on 12-19-2022 pH (U) 5.5 [pH] 5.0-9.0 [facility] Amylase [Enzymatic activity/ volume] in Serum or PlasmaOrdered By: Ryan Poe on 12-18-2022 Amylase [Catalytic activity/Vol] 35 U/L 29-103 [facility] Aspartate aminotransferase [ Enzymatic activity/volume] in Serum or PlasmaOrdered By: Ryan Poe on 12-18-2022 AST [Catalytic activity/Vol] 26 U/L 13-39 [facility] Basophils Auto (Bld) [#/Vol] Ordered By: Ryan Poe on 12-18-2022 Basophils (Bld) [#/Vol] 0.1 10*3/uL 0.0-0.2 [facility] Basophils/100 WBC Auto (Bld) Ordered By: Ryan Poe on 12-18-2022 Basophils/100 WBC (Bld) 0.7 % . [facility] Carbon dioxide, total [Moles /volume] in Serum or PlasmaOrdered By: Ryan Poe on 12-18-2022 CO2 [Moles/Vol] 20.0 mmol/L 21.0-31.0 [facility] Chloride [Moles/volume] in S gwendolyn or PlasmaOrdered By: Ryan Poe on 12-18-2022 Chloride [Moles/Vol] 105 mmol/L 98-107 [facility] Choriogonadotropin.beta subu nit [Units/volume] in Serum or PlasmaOrdered By: Ryan Poe on 12-18-2022 HCG.beta subunit Qn Negative [facility] Creatine kinase [Enzymatic a ctivity/volume] in Serum or PlasmaOrdered By: Ryan Poe on 12-18-2022 CK [Catalytic activity/Vol] 50 U/L 30-223 [facility] Creatinine [Mass/volume] in Serum or PlasmaOrdered By: Ryan Poe on 12-18-2022 Creatinine [Mass/Vol] 0.84 mg/dL 0.60-1.20 [facility] Eosinophils Auto (Bld) [#/Vo l]Ordered By: Ryan Poe on 12-18-2022 Eosinophils (Bld) [#/Vol] 0.0 10*3/uL 0.0-0.45 [facility] Eosinophils/100 WBC Auto (Bl d)Ordered By: Ryan Poe on 12-18-2022 Eosinophils/100 WBC (Bld) 0.2 % . [facility] Erythrocyte distribution wid th Auto (RBC) [Ratio]Ordered By: Ryan Poe on 12-18-2022 Erythrocyte distribution width (RBC) [Ratio] 14.4 % 11.9-15.3 [facility] Ethanol [Mass/volume] in Ser um or PlasmaOrdered By: Ryan Poe on 12-18-2022 Ethanol [Mass/Vol] mg/dL [facility] Ethanol [Mass/Vol] TNP [facility] Comment on above: Test not performed Glucose [Mass/volume] in Ser um or PlasmaOrdered By: Ryan Poe on 12-18-2022 Glucose [Mass/Vol] 93 mg/dL 70-100 [facility] Comment on above: ADA recommended refe rence rangeRandom Glucose Reference Range is dependent on time and content of last meal. Glucose of more than 200 mg/dL in a nonstressed, ambulatory subject supports the diagnosis of Diabetes Mellitus. Hematocrit Auto (Bld) [Volum e fraction]Ordered By: Ryan Poe on 12-18-2022 Hematocrit (Bld) [Volume fraction] 36.2 % 34.0-46.4 [facility] Hemoglobin [Mass/volume] in BloodOrdered By: Ryan Poe on 12-18-2022 Hemoglobin (Bld) [Mass/Vol] 11.9 g/dL 11.8-15.4 [facility] Leukocytes [#/volume] correc osmel for nucleated erythrocytes in Blood by Automated counOrdered By: Ryan Poe on 12-18-2022 WBC corrected for nucl RBC Auto (Bld) [#/Vol] 10.3 10*3/uL 3.8-11.6 [facility] Lipase [Enzymatic activity/v olume] in Serum or PlasmaOrdered By: Ryan Poe on 12-18-2022 Lipase [Catalytic activity/Vol] 29.0 U/L 11.0-82.0 [facility] Lymphocytes Auto (Bld) [#/Vo l]Ordered By: Ryan Poe on 12-18-2022 Lymphocytes (Bld) [#/Vol] 2.2 10*3/uL 1.00-4.8 [facility] Lymphocytes/100 WBC Auto (Bl d)Ordered By: Ryan Poe on 12-18-2022 Lymphocytes/100 WBC (Bld) 21.8 % . [facility] MCH Auto (RBC) [Entitic mass ]Ordered By: Ryan Poe on 12-18-2022 MCH (RBC) [Entitic mass] 26.9 pg 24.7-34.3 [facility] MCHC Auto (RBC) [Mass/Vol]Or dered By: Ryan Poe on 12-18-2022 MCHC (RBC) [Mass/Vol] 32.8 g/dL 32.0-35.0 [facility] MCV Auto (RBC) [Entitic vol] Ordered By: Ryan Poe on 12-18-2022 MCV (RBC) [Entitic vol] 82.1 fL 80-100 [facility] Monocyte distribution width [Entitic volume] in Blood by AutomatedOrdered By: Ryan Poe on 12-18-2022 Monocyte distribution width Auto (Bld) [Entitic vol] 22.19 % 0.00-20.00 [facility] Comment on above: For adults in ED, MD W > 20.0 may be associated with a higher risk of sepsis during the first 12 hrs of hospital admission Monocytes Auto (Bld) [#/Vol] Ordered By: Ryan Poe on 12-18-2022 Monocytes (Bld) [#/Vol] 0.8 10*3/uL 0.0-0.8 [facility] Monocytes/100 WBC Auto (Bld) Ordered By: Ryan Poe on 12-18-2022 Monocytes/100 WBC (Bld) 7.4 % . [facility] Neutrophils Auto (Bld) [#/Vo l]Ordered By: Ryan Poe on 12-18-2022 Neutrophils (Bld) [#/Vol] 7.2 10*3/uL 1.8-7.7 [facility] Neutrophils/100 WBC Auto (Bl d)Ordered By: Ryan Poe on 12-18-2022 Neutrophils/100 WBC (Bld) 69.9 % . [facility] No Panel InformationOrdered By: Ryan Poe on 12-18-2022 Estimated GFR (CKD-EPI) > 60.0 mL/Min [facility] Creatinine Clearance (Chem 98.76 [facility] Nucleated erythrocytes [Pres ence] in Blood by Automated countOrdered By: Ryan Poe on 12-18-2022 Nucleated RBC Auto Ql (Bld) 0.1 /100{WBC} 0-0.5 [facility] Platelet mean volume Auto (B ld) [Entitic vol]Ordered By: Ryan Poe on 12-18-2022 Platelet mean volume (Bld) [Entitic vol] 8.1 fL 6.3-10.7 [facility] Platelets Auto (Bld) [#/Vol] Ordered By: Ryan Poe on 12-18-2022 Platelets (Bld) [#/Vol] 223 10*3/uL 150-450 [facility] Potassium [Moles/volume] in Serum or PlasmaOrdered By: Ryan Poe on 12-18-2022 Potassium [Moles/Vol] 3.5 mmol/L 3.5-5.1 [facility] RBC Auto (Bld) [#/Vol]Ordere d By: Ryan Poe on 12-18-2022 RBC (Bld) [#/Vol] 4.42 10*6/uL 3.60-5.00 [facility] Serum or plasma anion gap de terminationOrdered By: Ryan Poe on 12-18-2022 Anion gap [Moles/Vol] 14.5 mmol/L 6.0-15.0 [facility] Sodium [Moles/volume] in Ser um or PlasmaOrdered By: Ryan Poe on 12-18-2022 Sodium [Moles/Vol] 136 mmol/L 136-145 [facility] Urea nitrogen [Mass/volume] in Serum or PlasmaOrdered By: Ryan Poe on 12-18-2022 Urea nitrogen [Mass/Vol] 21 mg/dL 7-25 [facility] WBC Auto (Bld) [#/Vol]Ordere d By: Ryan Poe on 12-18-2022 WBC (Bld) [#/Vol] 10.3 10*3/uL 3.8-11.6 [facility] PRBC LEUKOREDUCEDon 07-14-19 ABO and Rh group Nom (Bld) Cross Match Result Compatible Unit Blood Type A Pos Unit Number [id number] Status Information Released Specimen Exp Date [id number] Product ID Red Blood Cells Product Code [id number] Cross Match Result Compatible Unit Blood Type A Pos Unit Number [id number] Status Information Transfused Product ID Red Blood Cells Product Code [id number] Normal [facility] Comment on above: Performed By: #### R UBIGG #### [facility] [address] [place] [address] Dr. Juan Antonio Ibarra CBC AUTO DIFFon 07-07-2022 BASO # 0.0 103/ul Normal 0.0-0.1 [facility] Comment on above: Performed By: #### A 1C #### [facility] [address] [place] [address] Dr. Juan Antonio Ibarra Basophils/100 WBC (Bld) 0.3 % Normal 0.2-2.0 [facility] Comment on above: Performed By: #### A 1C #### [facility] [address] [place] [address] Dr. Juan Antonio Ibarra EO # 0.1 103/ul Normal 0.0-0.7 [facility] Comment on above: Performed By: #### A 1C #### [facility] [address] [place] [address] Dr. Juan Antonio Ibarra Eosinophils/100 WBC (Bld) 0.9 % Normal 0.9-7.0 [facility] Comment on above: Performed By: #### A 1C #### [facility] [address] [place] [address] Dr. Juan Antonio Ibarra Erythrocyte distribution width (RBC) [Ratio] 14.5 % Normal 11.0-15.0 [facility] Comment on above: Performed By: #### A 1C #### [facility] [address] [place] [address] Dr. Juan Antonio Ibarra Hematocrit (Bld) [Volume fraction] 22.5 % Critically low 36.0-48.0 [facility] Comment on above: Performed By: #### A 1C #### [facility] [address] [place] [address] Dr. Juan Antonio Ibarra Hemoglobin (Bld) [Mass/Vol] 7.9 g/dL Critically low 12.0-16.0 [facility] Comment on above: Performed By: #### A 1C #### [facility] [address] [place] [address] Dr. Juan Antonio Ibarra IG # 0.10 10e3/ul Critically high 0.00-0.03 [facility] Comment on above: Performed By: #### A 1C #### [facility] [address] [place] [address] Dr. Juan Antonio Ibarra IG % 0.9 % Critically high 0.0-0.5 [facility] Comment on above: Performed By: #### A 1C #### [facility] [address] [place] [address] Dr. Juan Antonio Ibarra LYMPH # 1.6 103/ul Normal 1.2-3.8 [facility] Comment on above: Performed By: #### A 1C #### [facility] [address] [place] [address] Dr. Juan Antonio Ibarra Lymphocytes/100 WBC (Bld) 14.0 % Critically low 20.5-60.0 [facility] Comment on above: Performed By: #### A 1C #### [facility] [address] [place] [address] Dr. Juan Antonio Ibarra MANUAL DIFF REQ NO Normal [facility] Comment on above: Performed By: #### A 1C #### [facility] [address] [place] [address] Dr. Juan Antonio Ibarra MCH (RBC) [Entitic mass] 26.4 pg Critically low 26.7-34.0 [facility] Comment on above: Performed By: #### A 1C #### [facility] [address] [address] [address] Juan Antonio Ibarra MCHC (RBC) [Mass/Vol] 35.1 g/dL Normal 29.9-35.2 [facility] Comment on above: Performed By: #### A 1C #### [facility] [address] [address] [address] Juan Antonio Ibarra MCV (RBC) [Entitic vol] 75.3 fL Critically low 81.0-99.0 [facility] Comment on above: Performed By: #### A 1C #### [facility] [address] [address] [address] Juan Antonio Ibarra MONO # 0.7 103/ul Normal 0.3-0.8 [facility] Comment on above: Performed By: #### A 1C #### [facility] [address] [address] [address] Juan Antonio Ibarra Monocytes/100 WBC (Bld) 6.2 % Normal 1.7-12.0 [facility] Comment on above: Performed By: #### A 1C #### [facility] [address] [place] [address] Dr. Juan Antonio Ibarra NEUT # 9.1 103/ul Critically high 1.4-6.5 [facility] Comment on above: Performed By: #### A 1C #### [facility] [address] [address] [address] Juan Antonio Ibarra Neutrophils/100 WBC (Bld) 77.7 % Critically high 43.0-75.0 [facility] Comment on above: Performed By: #### A 1C #### [facility] [address] [address] [address] Juan Antonio Ibarra Platelet mean volume (Bld) [Entitic vol] 9.2 fL Critically low 9.5-13.5 [facility] Comment on above: Performed By: #### A 1C #### [facility] [address] [place] [address] Dr. Juan Antonio Ibarra PLT 143 103/ul Critically low 150-450 [facility] Comment on above: Performed By: #### A 1C #### [facility] [address] [address] [address] Juan Antonio Ibarra RBC 2.99 106/ul Critically low 4.20-5.40 [facility] Comment on above: Performed By: #### A 1C #### [facility] [address] [place] [address] Dr. Juan Antonio Ibarra WBC 11.7 103/ul Critically high 4.0-11.0 [facility] Comment on above: Performed By: #### A 1C #### [facility] [address] [place] [address] Dr. Juan Antonio Ibarra CBC AUTO DIFFon 07-06-2022 BASO # 0.0 103/ul Normal 0.0-0.1 [facility] Comment on above: Performed By: #### A 1C #### [facility] [address] [place] [address] Dr. Juan Antonio Ibarra Basophils/100 WBC (Bld) 0.3 % Normal 0.2-2.0 [facility] Comment on above: Performed By: #### A 1C #### [facility] [address] [place] [address] Dr. Juan Antonio Ibarra EO # 0.1 103/ul Normal 0.0-0.7 [facility] Comment on above: Performed By: #### A 1C #### [facility] [address] [place] [address] Dr. Juan Antonio Ibarra Eosinophils/100 WBC (Bld) 0.8 % Critically low 0.9-7.0 [facility] Comment on above: Performed By: #### A 1C #### [facility] [address] [place] [address] Dr. Juan Antonio Ibarra Erythrocyte distribution width (RBC) [Ratio] 14.3 % Normal 11.0-15.0 [facility] Comment on above: Performed By: #### A 1C #### [facility] [address] [place] [address] Dr. Juan Antonio Ibarra Hematocrit (Bld) [Volume fraction] 23.0 % Critically low 36.0-48.0 [facility] Comment on above: Performed By: #### A 1C #### [facility] [address] [place] [address] Dr. Juan Antonio Ibarra Hemoglobin (Bld) [Mass/Vol] 7.5 g/dL Critically low 12.0-16.0 [facility] Comment on above: Performed By: #### A 1C #### [facility] [address] [place] [address] Dr. Juan Antonio Ibarra IG # 0.07 10e3/ul Critically high 0.00-0.03 [facility] Comment on above: Performed By: #### A 1C #### [facility] [address] [place] [address] Dr. Juan Antonio Ibarra IG % 0.6 % Critically high 0.0-0.5 [facility] Comment on above: Performed By: #### A 1C #### [facility] [address] [place] [address] Dr. Juan Antonio Ibarra LYMPH # 2.1 103/ul Normal 1.2-3.8 [facility] Comment on above: Performed By: #### A 1C #### [facility] [address] [place] [address] Dr. Juan Antonio Ibarra Lymphocytes/100 WBC (Bld) 18.8 % Critically low 20.5-60.0 [facility] Comment on above: Performed By: #### A 1C #### [facility] [address] [place] [address] Dr. Juan Antonio Ibarra MANUAL DIFF REQ NO Normal [facility] Comment on above: Performed By: #### A 1C #### [facility] [address] [place] [address] Dr. Juan Antonio Ibarra MCH (RBC) [Entitic mass] 26.0 pg Critically low 26.7-34.0 [facility] Comment on above: Performed By: #### A 1C #### [facility] [address] [place] [address] Dr. Juan Antonio Ibarra MCHC (RBC) [Mass/Vol] 32.6 g/dL Normal 29.9-35.2 [facility] Comment on above: Performed By: #### A 1C #### [facility] [address] [address] [address] Juan Antonio Ibarra MCV (RBC) [Entitic vol] 79.9 fL Critically low 81.0-99.0 [facility] Comment on above: Performed By: #### A 1C #### [facility] [address] [address] [address] Juan Antonio Ibarra MONO # 0.7 103/ul Normal 0.3-0.8 [facility] Comment on above: Performed By: #### A 1C #### [facility] [address] [address] [address] Juan Antonio Ibarra Monocytes/100 WBC (Bld) 6.6 % Normal 1.7-12.0 [facility] Comment on above: Performed By: #### A 1C #### [facility] [address] [place] [address] Dr. Juan Antonio Ibarra NEUT # 8.2 103/ul Critically high 1.4-6.5 [facility] Comment on above: Performed By: #### A 1C #### [facility] [address] [place] [address] Dr. Juan Antonio Ibarra Neutrophils/100 WBC (Bld) 72.9 % Normal 43.0-75.0 [facility] Comment on above: Performed By: #### A 1C #### [facility] [address] [address] [address] Juan Antonio Ibarra Platelet mean volume (Bld) [Entitic vol] 9.8 fL Normal 9.5-13.5 [facility] Comment on above: Performed By: #### A 1C #### [facility] [address] [address] [address] Juan Antonio Ibarra PLT 151 103/ul Normal 150-450 [facility] Comment on above: Performed By: #### A 1C #### [facility] [address] [address] [address] Juan Antonio Ibarra RBC 2.88 106/ul Critically low 4.20-5.40 [facility] Comment on above: Performed By: #### A 1C #### [facility] [address] [place] [address] Dr. Juan Antonio Ibarra WBC 11.3 103/ul Critically high 4.0-11.0 [facility] Comment on above: Performed By: #### A 1C #### [facility] [address] [place] [address] Dr. Juan Antonio Ibarra CBC AUTO DIFFon 07-05-2022 BASO # 0.0 103/ul Normal 0.0-0.1 [facility] Comment on above: Performed By: #### R PRQ #### [facility] [address] [place] [address] Dr. Juan Antonio Ibarra Basophils/100 WBC (Bld) 0.2 % Normal 0.2-2.0 [facility] Comment on above: Performed By: #### R PRQ #### [facility] [address] [place] [address] Dr. Juan Antonio Ibarra EO # 0.0 103/ul Normal 0.0-0.7 [facility] Comment on above: Performed By: #### R PRQ #### [facility] [address] [place] [address] Dr. Juan Antonio Ibarra Eosinophils/100 WBC (Bld) 0.4 % Critically low 0.9-7.0 [facility] Comment on above: Performed By: #### R PRQ #### [facility] [address] [place] [address] Dr. Juan Antonio Ibarra Erythrocyte distribution width (RBC) [Ratio] 14.2 % Normal 11.0-15.0 [facility] Comment on above: Performed By: #### R PRQ #### [facility] [address] [place] [address] Dr. Juan Antonio Ibarra Hematocrit (Bld) [Volume fraction] 31.0 % Critically low 36.0-48.0 [facility] Comment on above: Performed By: #### R PRQ #### [facility] [address] [place] [address] Dr. Juan Antonio Ibarra Hemoglobin (Bld) [Mass/Vol] 10.1 g/dL Critically low 12.0-16.0 [facility] Comment on above: Performed By: #### R PRQ #### [facility] [address] [address] [address] Juan Antonio Ibarra IG # 0.10 10e3/ul Critically high 0.00-0.03 [facility] Comment on above: Performed By: #### R PRQ #### [facility] [address] [address] [address] Juan Antonio Ibarra IG % 1.1 % Critically high 0.0-0.5 [facility] Comment on above: Performed By: #### R PRQ #### [facility] [address] [place] [address] Dr. Juan Antonio Ibarra LYMPH # 1.6 103/ul Normal 1.2-3.8 [facility] Comment on above: Performed By: #### R PRQ #### [facility] [address] [place] [address] Dr. Juan Antonio Ibarra Lymphocytes/100 WBC (Bld) 17.5 % Critically low 20.5-60.0 [facility] Comment on above: Performed By: #### R PRQ #### [facility] [address] [address] [address] Juan Antonio Ibarra MANUAL DIFF REQ NO Normal [facility] Comment on above: Performed By: #### R PRQ #### [facility] [address] [place] [address] Dr. Juan Antonio Ibarra MCH (RBC) [Entitic mass] 25.8 pg Critically low 26.7-34.0 [facility] Comment on above: Performed By: #### R PRQ #### [facility] [address] [address] [address] Juan Antonio Ibarra MCHC (RBC) [Mass/Vol] 32.6 g/dL Normal 29.9-35.2 [facility] Comment on above: Performed By: #### R PRQ #### [facility] [address] [place] [address] Dr. Juan Antonio Ibarra MCV (RBC) [Entitic vol] 79.3 fL Critically low 81.0-99.0 [facility] Comment on above: Performed By: #### R PRQ #### [facility] [address] [address] [address] Juan Antonio Ibarra MONO # 0.7 103/ul Normal 0.3-0.8 [facility] Comment on above: Performed By: #### R PRQ #### [facility] [address] [address] [address] Juan Antonio Ibarra Monocytes/100 WBC (Bld) 8.1 % Normal 1.7-12.0 [facility] Comment on above: Performed By: #### R PRQ #### [facility] [address] [place] [address] Dr. Juan Antonio Ibarra NEUT # 6.7 103/ul Critically high 1.4-6.5 [facility] Comment on above: Performed By: #### R PRQ #### [facility] [address] [place] [address] Dr. Juan Antonio Ibarra Neutrophils/100 WBC (Bld) 72.7 % Normal 43.0-75.0 [facility] Comment on above: Performed By: #### R PRQ #### [facility] [address] [place] [address] Dr. Juan Antonio Ibarra Platelet mean volume (Bld) [Entitic vol] 10.1 fL Normal 9.5-13.5 [facility] Comment on above: Performed By: #### R PRQ #### [facility] [address] [place] [address] Dr. Juan Antonio Ibarra PLT 202 103/ul Normal 150-450 [facility] Comment on above: Performed By: #### R PRQ #### [facility] [address] [place] [address] Dr. Juan Antonio Ibarra RBC 3.91 106/ul Critically low 4.20-5.40 [facility] Comment on above: Performed By: #### R PRQ #### [facility] [address] [place] [address] Dr. Juan Antonio Ibarra WBC 9.2 103/ul Normal 4.0-11.0 [facility] Comment on above: Performed By: #### R PRQ #### [facility] [address] [place] [address] Dr. Juan Antonio Ibarra DRUG SCREEN RAPID (URINE)on 07-05-2022 AMP Negative Normal NEGATIVE [facility] Comment on above: Performed By: #### A 1C #### [facility] [address] [address] [address] Juan Antonio Ibarra BAR Negative Normal NEGATIVE [facility] Comment on above: Performed By: #### A 1C #### [facility] [address] [place] [address] Dr. Juan Antonio Ibarra BUP Negative Normal NEGATIVE [facility] Comment on above: Performed By: #### A 1C #### [facility] [address] [place] [address] Dr. Juan Antonio Ibarra BZO Negative Normal NEGATIVE [facility] Comment on above: Performed By: #### A 1C #### [facility] [address] [place] [address] Dr. Juan Antonio Ibarra PARAM Negative Normal NEGATIVE [facility] Comment on above: Performed By: #### A 1C #### [facility] [address] [place] [address] Dr. Juan Antonio Ibarra CUT-OFFS SEE BELOW Normal [facility] Comment on above: Result Comment: AMP (Amphetamine): 500ng/mL, BAR (Barbituates): 200 ng/mL, BZO (Benzodiazepines): 150 ng/mL, BUP (Buprenorphine): 10 ng/mL, PARAM (Cocaine): 150 ng/mL, mAMP (Methamphetamine): 500 ng/mL, MTD (Methadone): 200 ng/mL, OPI (Opiates): 100 ng/mL, OXY (Oxycodone): 100 ng/mL, PCP (Phencyclidine): 25 ng/mL, PPX (Propoxyphene): 300 ng/mL, THC (Cannabinoids): 50 ng/mL, TCA (Trycyclic Antidepressants): 300 ng/mL Performed By: #### A 1C #### [facility] [address] [place] [address] Dr. Juan Antonio Ibarra DRUG CUT HEADER DRUG CLASS TEST SYST EM CUT-OFF CONCENTRATIONS ARE FOLLOWS: Normal [facility] Comment on above: Performed By: #### A 1C #### [facility] [address] [place] [address] Dr. Juan Antonio Ibarra mAMP Negative Normal NEGATIVE [facility] Comment on above: Performed By: #### A 1C #### [facility] [address] [address] [address] Juan Antonio Ibarra MTD Negative Normal NEGATIVE [facility] Comment on above: Performed By: #### A 1C #### [facility] [address] [place] [address] Dr. Juan Antonio Ibarra OPI Negative Normal NEGATIVE [facility] Comment on above: Performed By: #### A 1C #### [facility] [address] [place] [address] Dr. Juan Antonio Ibarra OXY Negative Normal NEGATIVE [facility] Comment on above: Performed By: #### A 1C #### [facility] [address] [place] [address] Dr. Juan Antonio Ibarra PCP Negative Normal NEGATIVE [facility] Comment on above: Performed By: #### A 1C #### [facility] [address] [place] [address] Dr. Juan Antonio Ibarra PPX Negative Normal NEGATIVE [facility] Comment on above: Performed By: #### A 1C #### [facility] [address] [place] [address] Dr. Juan Antonio Ibarra TCA Negative Normal NEGATIVE [facility] Comment on above: Performed By: #### A 1C #### [facility] [address] [place] [address] Dr. Juan Antonio Ibarra THC Negative Normal NEGATIVE [facility] Comment on above: Performed By: #### A 1C #### [facility] [address] [place] [address] Dr. Juan Antonio Ibarra TYPE AND SCREENon 07-05-2022 TYPE AND SCREEN Negative Normal [facility] Comment on above: Performed By: #### T NS #### [facility] [address] [place] [address] Dr. Juan Antonio Ibarra US PREG BIOPHY [...] by: FELECIA GOLDMAN Date: 2022-06-28 15:[address] [facility] US PREG BIOPHY W NON STRESSo [...] by: FELECIA GOLDMAN Date: 2022-06-21 17:[address] [facility] US PREG GROWTHon 06-21-2022 US PREG [...] GAMALIEL MARTEL Date: 2022-06-21 13:37 Normal [facility] CULTURE URINEon 06-16-2022 CULTURE URINE Culture Observations : LIGHT GROWTH OF MIXED GENITAL LAONSO. NO POTENTIAL PATHOGENS SEEN. Normal [facility] Comment on above: Performed By: #### U RCX #### [facility] [address] [place] [address] Dr. Juan Antonio Ibarra UA (CLEAN/CATCH) HYDROSTATIC TESTER/MICRO I F IND.on 06-16-2022 Bilirubin Ql (U) Negative Normal NEGATIVE [facility] Comment on above: Performed By: #### U MICRO, UACSIND #### [facility] [address] [place] [address] Dr. JuanA ntonio Ibarra Clarity (U) CLEAR Normal CLEAR [facility] Comment on above: Performed By: #### U MICRO, UACSIND #### [facility] [address] [place] [address] Dr. Juan Antonio Ibarra Color (U) LT. YELLOW Normal YELLOW [facility] Comment on above: Performed By: #### U MICRO, UACSIND #### [facility] [address] [place] [address] Dr. Juan Antonio Ibarra Glucose Ql (U) Negative Normal NEGATIVE [facility] Comment on above: Performed By: #### U MICRO, UACSIND #### [facility] [address] [place] [address] Dr. Juan Antonio Ibarra Hemoglobin Ql (U) Negative Normal NEGATIVE [facility] Comment on above: Performed By: #### U MICRO, UACSIND #### [facility] [address] [place] [address] Dr. Juan Antonio Ibarra Ketones Ql (U) Negative Normal NEGATIVE [facility] Comment on above: Performed By: #### U MICRO, UACSIND #### [facility] [address] [place] [address] Dr. Juan Antonio Ibarra LEUKOCYTES MODERATE Abnormal NEGATIVE [facility] Comment on above: Performed By: #### U MICRO, UACSIND #### [facility] [address] [place] [address] Dr. Juan Antonio Ibarra Nitrite Ql (U) Negative Normal NEGATIVE [facility] Comment on above: Performed By: #### U MICRO, UACSIND #### [facility] [address] [address] [address] Juan Antonio Ibarra pH (U) 6.0 [pH] Normal 5-9 [facility] Comment on above: Performed By: #### U MICRO, UACSIND #### [facility] [address] [place] [address] Dr. Juan Antonio Ibarra SPEC GRAVITY 1.020 Normal 1.005-<=1. 025 [facility] Comment on above: Performed By: #### U MICRO, UACSIND #### [facility] [address] [place] [address] Dr. Juan Antonio Ibarra UA PROTEIN Negative Normal NEGATIVE/ TRACE [facility] Comment on above: Performed By: #### U MICRO, UACSIND #### [facility] [address] [place] [address] Dr. Juan Antonio Ibarra UR MICRO IND INDICATED Normal [facility] Comment on above: Performed By: #### U MICRO, UACSIND #### [facility] [address] [place] [address] Dr. Juan Antonio Ibarra Urobilinogen Qn (U) 1.0 {Pamela'U}/dL Normal 0.2 - 1. 0 [facility] Comment on above: Performed By: #### U MICRO, UACSIND #### [facility] [address] [place] [address] Dr. Juan Antonio Ibarra URINE MICROSCOPIC ONLYon BACTERIA SMALL Abnormal NONE SEEN [facility] Comment on above: Performed By: #### U MICRO, UACSIND #### [facility] [address] [place] [address] Dr. Juan Antonio Ibarra Bacteria identified Cx Nom (U) INDICATED Normal [facility] Comment on above: Performed By: #### U MICRO, UACSIND #### [facility] [address] [place] [address] Dr. Juan Antonio Ibarra CAST NONE SEEN Normal NONE SEEN [facility] Comment on above: Performed By: #### U MICRO, UACSIND #### [facility] [address] [address] [address] Juan Antonio Ibarra Crystals LM Nom (Urine sed) NONE SEEN Normal NONE SEEN [facility] Comment on above: Performed By: #### U MICRO, UACSIND #### [facility] [address] [address] [address] Juan Antonio Ibarra Epithelial cells LM Ql (Urine sed) RARE Normal NONE SEEN /RARE [facility] Comment on above: Performed By: #### U MICRO, UACSIND #### [facility] [address] [place] [address] Dr. Juan Antonio Ibarra MUCOUS NONE SEEN Normal NONE SEEN [facility] Comment on above: Performed By: #### U MICRO, UACSIND #### [facility] [address] [place] [address] Dr. Juan Antonio Ibarra RBC NONE SEEN Abnormal 0-2 [facility] Comment on above: Performed By: #### U MICRO, UACSIND #### [facility] [address] [address] [address] Juan Antonio Ibarra WBC 2-5 Abnormal NONE SEEN [facility] Comment on above: Performed By: #### U MICRO, UACSIND #### [facility] [address] [place] [address] Dr. Juan Antonio Ibarra GROUP B STREP CULTUREon 05-18 S. agalactiae Ag Ql (Unsp spec) Culture Observations: NEGATIVE FOR GROUP B STREPTOCOCCUS. Normal [facility] Comment on above: Performed By: #### G BSCX #### [facility] [address] [place] [address] Dr. Juan Antonio Ibarra US PREG BIOPHY [...] by: GAMALIEL MARTEL Date: 2022-06-14 16:[address] [facility] US PREG BIOPHY W NON STRESSo [...] by: FELECIA GOLDMAN Date: 2022-06-07 16:[address] [facility] US PREG BIOPHY W NON STRESSo [...] by: FELECIA GOLDMAN Date: 2022-06-04 17:[address] [facility] US PREG BIOPHY W NON STRESS [...] by: FELECIA GOLDMAN Date: 2022-06-04 16:[address] [facility] US PREG BIOPHY W NON STRESSo [...] by: GAMALIEL MARTEL Date: 2022-05-31 18:[address] [facility] US PREG BIOPHY W NON STRESSo [...] by: FELECIA GOLDMAN Date: 2022-05-24 16:[address] [facility] US PREG GROWTHon 05-24-2022 US PREG [...] FELECIA GOLDMAN Date: 2022-05-24 16:33 Normal [facility] GLUCOSE - 1HRon 04-04-2022 Glucose [Mass/Vol] 101 mg/dL Normal 74-106 [facility] Comment on above: Performed By: #### R PRQ #### [facility] [address] [place] [address] Dr. Juan Antonio Ibarra HEMOGRAM AND PLATELon 2021 Hematocrit (Bld) [Volume fraction] 33.5 % Critically low 36.0-48.0 [facility] Comment on above: Performed By: #### A 1C #### [facility] [address] [place] [address] Dr. Juan Antonio Ibarra Hemoglobin (Bld) [Mass/Vol] 10.7 g/dL Critically low 12.0-16.0 [facility] Comment on above: Performed By: #### A 1C #### [facility] [address] [place] [address] Dr. Juan Antonio Ibarra MCH (RBC) [Entitic mass] 29.3 pg Normal 26.7-34.0 [facility] Comment on above: Performed By: #### A 1C #### [facility] [address] [place] [address] Dr. Juan Antonio Ibarra MCHC (RBC) [Mass/Vol] 31.9 g/dL Normal 29.9-35.2 [facility] Comment on above: Performed By: #### A 1C #### [facility] [address] [place] [address] Dr. Juan Antonio Ibarra MCV (RBC) [Entitic vol] 91.8 fL Normal 81.0-99.0 [facility] Comment on above: Performed By: #### A 1C #### [facility] [address] [place], [place] [address] Dr. Juan Antonio Ibarra PLT 179 103/ul Normal 150-450 [facility] Comment on above: Performed By: #### A 1C #### [facility] [address] [address] [address] Juan Antonio Ibarra RBC 3.65 106/ul Critically low 4.20-5.40 [facility] Comment on above: Performed By: #### A 1C #### [facility] [address] [address] [address] Juan Antonio Ibarra WBC 9.9 103/ul Normal 4.0-11.0 [facility] Comment on above: Performed By: #### A 1C #### [facility] [address] [address] [address] Juan Antonio Ibarra US PREG REEVAL [...] FELECIA GOLDMAN Date: 2022-03-20 20:55 Normal [facility] US PREG ANATOMY SINGLEon US PREG [...] by: FELECIA GOLDMAN Date: 2022-02-22 16:[address] [facility] Coding Summaryon 02-14-2022 Coding Summary HTMLBase 64 PaesqnedUOa9xVu+PGhlYWQ+PE 2TIXNqT19oeZWkcN8QP4wXCE3A SMDQGIYCHV8XZW6dbQO4PGdmL2 VybiAv FxgewLVmNX62PUj5WRJ8tGhyZA okuF3vkGEiZ1g3YqNwGU78qQ79 AFodFIKqYtF0AbHxyrvyhDWr E1iyShIgxREbNea+PHRhYmxlIH xlDFNtEIwuYNEdFcDaxRsbHO8h Mh0gOEPzTGDtyPgwvGDgNjWf s1vqBIMuVIryYP0baWauC1VhpB P0KYXvq7m3Bf64fRT+PHRkIHN0 sWsoBDxaa848YfBgj5beAFI6 vPTmIPndCIV0B56nq5W1LUKkPZ TsVOV5pPB9wG1dsEbkopoxP9Pk aUIpFzC0TBN6rYYymG9qgVzc qrbhlV0rDsx+J99QHO5ZPZMBYD 6LKff2S6ZpAraipKE+SM89QBWp OD09aMDzaKCdn7azyCd6MoTq RUNhTNS3cTllQVinr1UkFAHbP8 5jjGLfu5L5XHWcaNukjPOeRjYa cEI9iH5bUMzaarouj7xvgtwk Apvxp0rjxl58cO10V35dWDmjLF FmMRX8QBUyPFUpoPkjgf6nbW4m Ii8+CObxj7afg6eecWg1CmVr IDSnzhPzuHrmICW8h0QsXn97Q9 TliLfrr4VuUhj9uc89zTBtl1G3 fXR0CVskKDNgwM2sOUxqRoO4 IXFlZiYxzY62tPXvXCouYx8pmT txbZguDU2gTKSntotqMJBlcG0r ABWonUBbnQzyBC5mQSPwxbei p370VxHkMKP5VEFxeCIdH8MkrM 1bQhIuESJyRNOoZ5MatJBhAFaq G422WBtePlK7RHDkqfMwO1Po JGSnwAjkBtL7f5F7Iv1Jp2Opns iwHRL7KUztJRM2MdJlUdWrRlQ1 M7UmQik6ODPjjUkxGX8dG7Bh XHLnbskvhcgfwWX8MIUcNUPjqP 54aRHxYOajOi2uq0X2i715WNFo KPUvxQ13Kk6sfZthFTKtbFEM zT8lgynat9ujzikiJeTpPBFaLN i7WBv9MHXjhFttEuHmRQD0ThD2 CUU9uGWfbI1wvTzseqrqpV1t Oyc+Z65rcB9gHVL0ZCZ5wjdeER HngeTkGR07DA52N9VjRktaeAFc bGU+FGZxpcYqdGyfNV1fBsGf k9dlj0FeTCgxX5NvYFTdILodDv s8UQKnABO3qXS9nO9yLDMlLQcp v6P5mQK7V7ZubkGlhm7ns2ur MNFcIVzuF61mqZGwa3M9TEIgxJ F4LREieIrxJaXoaV82Fid+PGNv aRtgl1FdUiwck5ktf2gjlGy7 HwWbLRVpdvVmcQalZBT0r8WoCt 18H39iLWkuZSHhDAHjTLFfBWPo bHclzt7hzD7yQh0+PGNvbCB3 cSV9iW4xEKGkWqM4AVzsM286Xe HetNZlPrttz0ens9zsfMl0KdBb INMrptChqUcuCOV7b3PsMa03 G22uAJasADIxGSBrNTPqTFVfuZ nohk2jeG5kEv4+FZ5kz2jney14 aS19zOF+UWPfHDH1jXadOGox MIYntZ9kGXkqObX1OYBiGqCwfH 53zHCeXTneFm4kpIcdoBbhUC6a HJGhzktqr753UbTxd7tfYXAq kXXbEMusZDB8K26bf2X2JQEdDF OtXQL5gZP5kA9csDgximiwgBQn uNftxwSwqIwuEOkiTBbfN800 IHRvcDsnPlBhdGllbnQgTmFtZT p4O0AnOey0YEJxlOlrOP7lmGFu VTziZn2heVnpkGpjTV1mHRSw wetum821FjQel5yyUWTgeHJdQN bxETT0V11ri1W0SPUlWGFoFXX9 qHQ1gV6omQswrkbbmIGiaDqx arTleVgwSZoiHEvyB534XSApcU kgDqJqjlWgZDEuvCU5UA94VH49 qOHvm3G9fJA9Z6SmQRAblcqj vybdtXB3GCTyMZGrjC41Qt3wkX ugId2uKGVaOHI5JGIayICnS3Np tY2dZkPgWLLdFVQoX9NwwTLp SUvwT944QBnvZuP8GBRyutQzC3 MxRRYvnKnnQbJ3l1T0Fe8QW0B0 BE30JU91jDRcz4V8oUF1J6Tm VXPwhvxrtpodwQQ0RVUnKFWycQ 74Hw3dtNaiTa8jLGRuJLX6PGDh iJFbC4LupA5yAyYfTVMyTLWo F1DgdUKjHUvuE367FGaiAwK4DV DxehKfI1HwSNJrzIvqKrK0a3E2 Ha3QFBy1JB24EV17oZXpx2Y3 nOD9D6KtVHLoxsgudkchaKM5CL BrLVRzuH90Tt5mvWjdWx5bPIXq YIG0FORpyEToS7FrlJ2wMxSu IJRhNIEyT9LlhBGzKDwsH125OS pcWzX6WIQpwdZcK3LdJFLfwHtl WjG8y2T5Mi4ARGWmXX89AKL5 tDN6VH33YK58Q6ViPktpgFLbeL U+PHRhYmxlIHdpZHRoPScxMDAl RhBeuItmCK6aQc6eWITdKNJv yImhaUGgTnFdp8dwWIXtVEriRF 0yzKcxA3DpsDQ5FDJxq2o0Qv20 L72yM1EirDP+XXBhxZI6zAK6 gM7kAhJlYaT8SLqwT716FjLcaN ZcMlybv9osx6xucEr0TnZ8WYXz pdPggEfxPQA8g2JaGs41B73j IHdpZHRoPSIxNSUiIHZhbGlnbj 5wyX1rUf4+TWSahZX9nIA0mX4a IxEzIqI6FRmkW931EvUlsEHg Jjiiw7kdn7bdlCw0VzStZJJabf CpzHydUDD6z2IqBr91U1NdoAih j8QdAki1me67rGXlr8D9cSY0 X0EyLHOvamudmNUbcPfuXH9oLY OzuoozUTDndI4sLFRiI2u6GnMn XvZ9XHbvD6JpwwG5ITZnxIIe BLcrBHG3J25kh1A2CLCiZPJjRW Q7rLW5cZ4bnDzkvaifbQWbhRwx pcIyeBylQJetZOzyJ084NGQv lUevNUTqmK0cTAZtpQOqnApuSF 4wNTBpbjsnPlNURUlOLCBWSVJH OL0DKNSADUB8K3FmLzw0AMJg qBmpJK5soTYgLZluXp8hjPizjO gvKN7zNINsnjpqPJZwgW6lTSDr hHXiwEaqYE9cQEMjbvrsc043 TiAqMDW0YICvzDMtX3XopH7kNn VkRUPoQRJwB8UjbINoAMoyB956 JFwqXjP6WTYoudWqA0PoTPSe nDkwStJ0w2V1Fx7ePJ2uVL8xUD gcVH23WQ62cZZqn8C4bGG4A3Ql EMVearusirbttEE2HRBeAEXj dI43zVQmFBdbRs6dx9E5s849SL GfMAIjfS44Gu8xbFwzPBWidWRG gB5wnodkg5cmgmusJvZaLPMv AZi4YDz6ZQOzhIzmYwTfGEK7Aq Q8XDQ4qNFgmV2haKugkojtdX9b Oyc+SdunHGDjdwN7U9NrFoa9 IHIlhKccVS8coCAnGJpmNo6ikX bapIhcGA3nKKSfgwppPVLgkV9i GSFmnFIfnPryRV6nVUDixjlg j713OhVlCQC4WCOcwCRvS6JpqE 6jJsXyKFZcHEXoD1TeuUEtLVkc Y541FAplXoM6HENoazYvU9Vn XEYanFrdTkH1v6M9Ye6CFE5VSM V8A1SqKwa1TTWkiFtkIH6hbQVn VCjqPq7hbDkerTheQT0cXGUl sjqtEYJpkA2xVHVvpEYtiPepHO 3fBUQnneljv814GqGaBKZ3SSYg gTYqJ1FdjW3aUyObKGXzGQZc Y1LtuBRwUWvhN939QHupGaX5LJ DfbaSqC9ZaLZJwiJxnYjH5s4K9 Ka7MHHngqTK+UC38ay14F9Sf NtfxEci1ASJhBAL3dTB9yO2rOZ LnLUrjd1A0yMT6Q6GsskMmjo5v t7pfPMCvSNciB33jzFEqc5X7 ITKjqVT6HBOskSkdJlPwgY87Sp c+PRRwkAosh9GsMpfzm6ssg5if tMx6FlQnSCEghoJvfKuwGJR1 v7BnTu07Z20fLUzbPYKwTJCvNE DiZQEmbMgybi3kuS1jXi3+PGNv mHC0jMJ6yU2sStEcZxT7ZMqw I292WuSjjCUgWlerw7pmq9ptvJ u8TdVeOOBluxJagRngRMH0e3Ql Az77O1KnfJncy2InCse8th81 fPCfn4O0aUL2X4ErBFFbbnsbnG WuhXgqMG9nKDUeiqtaJCUhmR8q LXLlZ5q2ImNbEfW8QRqwN2Qw oqW9CERlfHGlQMHgeMAGrS3nse vmw4qetpcbZbHxFAJzJEp8PBa5 WQHnrBmgBwErXKQ0YpN4VKM3 tXZrkC0ciMbajsbslU9hWqg+UG h7z0nrkQGsKC6itDQ2JQ05PK25 sJNpp0D8nXP0O4HiPTOkumff vlixyHR3GUNgVMQfeV05Hf3ecE nmDt8hHJDrUKB6WZHbbIGoJ6Ob wV3rKxMxWVAuMPNrB5UrpRGo TJndO658BOrdLkW8HFCknnPnL8 QeKLAnyPsxMhP8i0X4Qj7TOJ79 RW95UG63qSGpm7V1hTH9Z6Pj DYKplkbpehvnmVJ6UMXjBELajH 38Ni8ihQkcUn5fKSZoRMN6OZIo qJQcU2GldS1rLtKwLTYdGKKo X9HcyIMnNPnrC469FPjkHqQ1WK RbcfJxE6EnWPTcjIvqGjJ3c2X0 El0TDf63CO25GM94kXLdy6X3 eFC0Z6DiPSNootagdfllmJI9JK JaUPVuwP49Cm7kvUavBq9fBWZf UWH0RGQtkTTzV5SorJ0nWeOf CSNuOUYlP2HbcTSmKAifX941UA ncZsI3TFHcxgCmR3GvHUFsaFme XuP1f1S8Yy8LUVbrzht5F6Im PjwvdHI+SR58GEDvHF03vJJkvH Pvb0qroZi1EmGcFGFeKJX7dUix NLiey5XtFQJnB66ueNZni0R2 IGN (more content not included)... [facility] Coding Summary HTMLBase 64 CdzyvnexBZo8zBb+PGhlYWQ+PE 8ANKZyW00wtXRljT4TD3dEXA5P DFZCXVSAIH1TYT7vrQC4ZErtO8 VybiAv RqwjlNPaOQ04GJf7IDP5qZsbPD looN6ucXHgA0f3ImBnIC91lX12 SMztRNCwFyP8XqUimtknwMQk R4tsZjVmzHYfQqr+PHRhYmxlIH gjHLUkDNijBBUlDsGzlRlrIU3h Kh6mSYPdIRVvfLekkNLyPgYv u2hcOFFlXTayVM1jjRstY8LriR P7YNAkx6i9Tc52zFZ+PHRkIHN0 vJkpIOdjs457KgBnc4awRQX1 jXDdNTcsXTK8X83oy9O1BMGjKL ZcSIT2vAH4tA3iuUsaupvtO1Lu rEHmOaL7LXN0rCSlcB5dcGvs kxabvF7sFrx+U85ELO8PTLKPCZ 1PQdy1X1JvYxzjqXA+AB11XLNk QV24cVOgmZBmg6cesNb9WoCz XZMtVII2gYirXLjgg5EcFCOiK3 0ktOMfg1C6NDKwgQlagQIdMhYs yHH0cD2mBTszvpvsl0kmuxnw Rvnmm3czhf03cV18J25uEDecKU CxBKZ7UKXmYWPycRdrng8mtS3d Ii8+WYsmk0itd6yijDc9JgHe SHBuuwSsgHyxYNU1z9AqXz47K2 WlcYeie9WgXxj3ji72iQSlc7E3 hIH0EZmzXPAkkD5mSGtdHkR9 DTEtYzAsvL81cAXzLXdjAh8fgP mtbBvpKV3tMNEwpmjvVDKegL4u OYTalKHxsGiySS4lBHEgtyem p149ObBqQAS2HRAyrYHeH4CsiV 6pDqXbDIMzATXkZ0KatZJsRBth R535CRshMvE1ODZxwbRvF6Dg FQXapOseQeV8p3H1Bj1Nr1Onsz hxFHZ6SRlgRRE0DgAmIyNcXwA7 I9TxFgp5RPDxwQuoOM3mI6Cf YIMgoeobabksoSV3WBFqEMGlyY 38wXWiDYwrWl1zu6S1a384WTYd JCNtxA10Kh4kaLpqRFVqzLUB pZ4qoalld0hpdynrRxOmFEBzLA y7XNt1YSZvmOqmPoNfEDT5JaB6 RRG0wHJpmO8hiQsdosqnuT8z Oyc+H48aqO5ePQT5MBA6kwgeMP PixuNgKO29JE11K0IjOffxcMZr bGU+KIHthcMoyPgiNT5rMoMq y5onn7PwNTxpG0JeMCIrVObjVk g5SJRzQXZ1bCX5uY7iHPEdRQko r2U3zGD9M3GzddNxqa6uq5lt LCKpLOawK27vgHHjv7H1AWDbyP I0VOJuoRofKxDmkB34Eoy+PGNv oRpfh2YzXyple5rzo7lyjPa2 DxNjPFPksqJdsWmqRKV8x7SnEf 86J34iLWjjJUZnLWIhOMWgGKZr lLroci6ahG5cQx3+PGNvbCB3 rRJ7hL3vBOWjDjT4UEovB635Nt XwlNPeEtnqp6ekg4iysGs6JjMl ROVsyfLyjOmeKJI5l4KmYd42 K82iNJtwGRRfIWDdFMJwLTClzG jicz9mgV4uFp8+OH3dn5nuil76 qS77yEE+CHPyJVM6oHljEAqh INTuxY6mPLiaPgG9EKYoFoYbeN 10wSKsWRmuFy0niIxtcFtmCI5w NUUzccofa353XmHfz5jmOFEm hQZdBVxoXMA5J42sk1K1MKWeSY KyXLK3mDX5cX8lxPqmhgggbLKr xPglytRccXxsQEiyUOlkO926 IHRvcDsnPlBhdGllbnQgTmFtZT f9U6DbAmn7XCZaoGgeGU3ilVDq BWbdYt1pvWojuEypSE7rJXQv faffw885BaWcg7inCXTplEYoQN cqJOF6I05tm5R2ZKIzRDYiRQL4 wBC4vS6omKbwljqitMXuwBpa mjThkKnrFPuxDOycC138KGJagJ akHrTejhMqSXCriVZ0DP07US02 mEAyd8Q9mUV4C2QcHJFtcjlu audnuBS1QJVgTVXmfK64Ok4paG odLm1xZFSzAQS8BBFnzYMeT3Ed rL5iBsUiBWAnFPQwP6FyaOSr TKnaO208HThcImK4XCUrpsKsF9 XlCXIkcHsrIqQ2w9U0Gj6GE7K3 ZO75AC73cUOkv0R6sOM2J4Hz FYEtaspqbiztqNH3XMWxFVXqtB 86Bo2avJnaTo5dEVOkFKN7OOEd lGGbQ2WuvF1aJuGcKWEmRRNl S8NbbFCdTFhjH333RYgtUlN2JV MgecPwU5WcQFQhwOjwDzI1s8S5 On0HZAm1JP38OH37mYUfs2O8 tGJ8T2WyUIRcossgenilkZH6AT HmNVCpiD32Ll0bnKhkAa4sOGOu XDL3AXFjcUWhF2CdkB7gToIv IYFbUBQpO5ExtHJfVHxfF623VE qhKoV0OUVqxqUrO3UhAIMzvUdt HkU8m6R7Jx9VPYIbKO57IVW2 uRD9OX62YB85J7DsRotouYWwcU U+PHRhYmxlIHdpZHRoPScxMDAl DoTzaBpcFI7bEt6nWZXfWKQf bYtwgCHwPxMfq0nyRCBkVTuzYH 5wmXnaX3WuhNO6XKYhe8b3Sz86 F08rH4RgtZH+GGLshTF2lPL6 nM1oCmNwKyN4CXhtW778VwJqwX GsQqxip1xyo1qvnKg6HzD8DFFh ycMrnXhfCXC9r6RiGo64K68o IHdpZHRoPSIxNSUiIHZhbGlnbj 7beL8wCf8+DHEdqNX8iTL5iB2h RzLqDcG4HZlsP166XiIdoMMo Xzbqj4mba1sbvTm8AcJwXOLxzq MdpHjlGQV3c8AdFb58L6DlbGsi o5JgBfp3mi67eYImw8E5vWC3 V3UeGOFyjhdnpKFezCtvCR1oHT FtuxtoEBDcmJ4cXMJsF3t1UdEh IgE2DQeeY5IckaY3CTWkyYJv BOhdCZK7F75gb8C2FQXqZZQoFY C4sSS7rO1qhVbnsequfSGddMrf qjIvpGzjOMnoOIiqA978FJNd gQjgIBDclS6nYHGauZMbxVuzQX 4wNTBpbjsnPlNURUlOLCBWSVJH LV8PLOLOFVZ4Z5YdKlz0KEGn wDktMR7unNOxFMavOb2nyDqplD gnCG6nQVHqqxgvCVUqwM0eVWKd sWTayKjtVZ3dEFJowcdiq172 EgHuKTP2GQQhuNRoG3FldB6bHr LnZWStOKHfD2CkxIUhZGmmC973 EDsdMfY8POXihmDsH9VwPWBa gTwfGgC0r5T1Jo7kXX9qTA8lBR ljJO55MF64oHYyk1I5cPR8D5Pt QBRrellpbntcvAW5SUUpFSGm mW55lAMjFHlfHg5zy5Z8h222XN FnFMKalW82Ed9hrUedUBLlgFTW bO0mnusue4opviwoDsWyIQCr PFl5FDj5AKCxmMotXyNlXLS0Ju S6RQN4sDPfeR8igStxemsxnQ9o Oyc+LjykLZMldvV9H4CuMzy4 VECghLsiBD2hpEBdIVsmRz9llR mczRyxFO0uYLMubvjsLDNtkC0o VLDhqWRiePwwUL0rXYVxknwt z157OcAbZGK5AQRgqJNkB5YihO 9zNuWeCBCcDSHgV1FmuYJbQOlr G587YQezMhJ4WFUunjMtI1Rx LECxqYdiDiG8x6G0Tn3WKX2JTW B2K0TtYuw2QWVjjFyqKP2ykWDk DEliPz7scYfajQxvBD5kLJWb dnnaCDVbiC9mVIMwuZYlaUoxDI 8xRRIbolwcx385YkKhISH7XXTf iUHdZ5AlmX1jEpPkZNOlKCPf P0KpoYJaRIxcQ631QRzyCpK7VW VouwRvI8YaWYTdlVvmVuC5z3O4 Bm8BtDPxN6JyL8p6N5HrCpxs dHI+ME13MATfVE43fNAqdYIcf4 tzqXw5EoGrVLQwRPK5wLnsBKse v6AxHLVpT20lbKSzj7O7KMXg mQhyiHZyJeQzfKI1xM4tCJnjvc ohy5zqklaqSfoyb5ttgc75mQ68 X25bEQuhMFMdOINkWTOoOGGk vQocbn1zvU5mMv1+HCVkpPJ0yP K9rX6bUwWmEkQ1ZBxtN528BrAv jTPiWuisy1iic8arlWg0WjSx SPSvjyVosBmbJOO0h8LzDk92M9 9sIHdpZHRoPSIyMCUiIHZhbGln bx1qhC3xBu2+LZ2ea0lndb56 mI15pXK+YIMaQHF6rYunNYmzEX CzbM6tNYcsDsN8IHUwGtPdvV64 sLWoEQoqAt4osWpjlIkjTD7s LNWyolqsx721AwYss0vlRPDvaY NaXXhaSXP6G93id4V4COAdHXYc MLH9sWD1jG4yzZtswjesaKXk gDmwhcZuhIwkKHgxNObvG344KK QdgCjePlZtjKGsD9mjrdXJIQ0i OjwvdGQ+AVCdUAQ6fWedBHtj ZRWmkA6bRZHdW2w9ChItThN2RT yvE1FmllS6EGDnfIIvKFIilQNB dS8kgokwd3mstrtdQuIeHBMt RJp7VRp1KZQpoLwsFvFlPEP5Zp Q8UML3lEQhiB8xuLfcffzesU1a Oyc+RklOOjwvdGQ+PHRkIHN0 cBxpVTgcOUSaaF3iLOSuZ2p3Vg OtQuR0ADdzJ6AwomN6RRZxcDXj BJTckAUZeP6wdwaks7fsxofd VeRaVVClIPl6LHh9JKPodCgtUf IwCQS3HtH7QEW5pXAjgG0ixGhq uqsuwY9wFye+TVJOOjwvdGQ+ QJPaIFN5mGwtPAjoFCEpjI0sJS CfY1u3FxOeTaR8SWkrJ6ZukfL7 JAHzdHHwSQUfdGCGzG8kitdt p4hogmtsZeMpGQZeXMj6OXy5ZD YxbSdgSfLtLMX1AgM8JGJ5kRJj jD0wwTdkgbxejP5gKbx+UGF5 SBX3CK12XX18L0PhOawbhMWyyH U+PHRhYmxlIHdpZHRoPScxMDAl MiOwvEqbVA7fKp5yGBWuUQQz bGx (more content not included)... Normal [facility] CHLAMYDIA/GONOCOCCUS RAINER ( AB/URINE/PAPon 02-09-2022 Chlamydia trachomatis, RAINER Negative Normal Negative [facility] Comment on above: Performed By: #### R PRQ #### [facility] [address] [place] [address] Juan Antonio Ibarra Neisseria gonorrhoeae, RAINER Negative Normal Negative [facility] Comment on above: Performed By: #### R PRQ #### [facility] [address] [place] [address] Juan Antonio Ibarra AFP MATERNAL FOR SPINA BIFID Aon 02-08-2022 AFP MoM [address] [facility] Comment on above: Performed By: #### A FPMAT #### [facility] [address] [address] [address] Juan Antonio Ibarra AFP Value 66.8 ng/mL Normal [facility] Comment on above: Performed By: #### A FPMAT #### [facility] [address] [address] [address] Juan Antonio Ibarra AFP, Serum for Spina Bifida Report Normal [facility] Comment on above: Performed By: #### A FPMAT #### [facility] [address] [address] [address] Juan Antonio Ibarra Comment Comment Normal [facility] Comment on above: Result Comment: Melchor Chaudhary, Ph.D., [facility] Director . References: Available Upon Request. . Multiples Of Median Cutoffs For AFP Elevations Briscoe 2.5 Black 2.8 IDD 2.0 Twins 4.5 Abbreviation Definitions IDD - Insulin Dep Diabetes OSBR - Open Spina Bifida Risk . For further inquiries contact [facility] at [phone]. . This test was developed and its performance characteristics determined by [facility]. It has not been cleared or approved by the Food and Drug Administration. Performed By: #### A FPMAT #### [facility] [address] [address] [address] Juan Antonio Ren Age Collection Date 18.[address] [facility] Comment on above: Performed By: #### A FPMAT #### [facility] [address] [address] [address] Juan Antonio Ibarra Gestat, Age Based on LMP Normal [facility] Comment on above: Result Comment: Reca lculations are not recommended when gestational dating by LMP and ultrasound are within 10 days. Performed By: #### A FPMAT #### [facility] [address] [place] [address] Dr. Juan Antonio Ibarra Insulin Dep Diabetes No Normal [facility] Comment on above: Performed By: #### A FPMAT #### [facility] [address] [place] [address] Dr. Juan Antonio Ibarra Interpretation Comment Normal [facility] Comment on above: Result Comment: Inte [...] Customer Services to discuss available options. The [employer] recommends amniocentesis be offered to women age 35 and older. Performed By: #### A FPMAT #### [facility] [address] [place] [address] Dr. Juan Antonio Ibarra Maternal Age at HUGO 32.[address] [facility] Comment on above: Performed By: #### A FPMAT #### [facility] [address] [place] [address] Dr. Juan Antonio Ibarra Multiple Gestation No Normal [facility] Comment on above: Performed By: #### A FPMAT #### [facility] [address] [place] [address] Dr. Juan Antonio Ibarra OSBR Risk [address] [facility] Comment on above: Performed By: #### A FPMAT #### [facility] [address] [place] [address] Dr. Juan Antonio Ibarra PDF . Normal [facility] Comment on above: Performed By: #### A FPMAT #### [facility] [address] [place] [address] Dr. Juan Antonio Ibarra Race Normal [facility] Comment on above: Performed By: #### A FPMAT #### [facility] [address] [place] [address] Dr. Juan Antonio Ibarra Test Results: Negative Normal [facility] Comment on above: Performed By: #### A FPMAT #### [facility] [address] [place] [address] Dr. Juan Antonio Ibarra VAGINITIS/VAGINOSIS DNA PROB Abdirashid 02-08-2022 Jeremy species Negative Normal Negative [facility] Comment on above: Performed By: #### A 1C #### [facility] [address] [address] [address] Juan Antonio Ibarra Gardnerella vaginalis Negative Normal Negative [facility] Comment on above: Performed By: #### A 1C #### [facility] [id number] Juan Antonio Ibarra Trichomonas vaginalis Negative Normal Negative [facility] Comment on above: Performed By: #### A 1C #### [facility] [address] [place], [place] [address] Dr. Juan Antonio Ibarra ABO and Rh group post transf usion reaction Nom (Bld)Ordered By: Eleazar Hses on 02-06-2022 Microscopic observation Gram stain Nom (Unsp spec) [facility] ED Clinical Summaryon 2021 ED Clinical Summary [facility] Emergency Department [address] [place], [place] [id number] ED Clinical Summary PERSON INFORMATION Name: ZULEIKA WYATT Age: 31 Years Sex: FEMALE : 1990 MRN: Acct#: Visit Reason: Rash; Medical problem - minor; POSS BODY INFECTION Arrival: 01/29/2022 20:27:46 Discharge: 01/29/2022 21:17:00 LOS: 000 00:50 Check In: 01/29/2022 20:27:46 Checkout:01/29/2022 21:17:00 Address: [address] [place] [address] [address] [facility] [address] PCP: Andie Stoddard PROVIDER INFORMATION Provider Role Assigned Unassigned Johnson Wright DO ED Provider 01/29/2022 20:29:08 Jessica Holman RN ED Nurse 01/29/2022 20:31:57 VITALS INFORMATION Vital [...] follow-up with their family doctor or their CEMENT FINISHER doctor. To this they agreed.. Health Status [...] Current Fr (more content not included)... Normal [facility] ED Note - Physicianon 2021 ED Note [...] follow-up with their family doctor or their CEMENT FINISHER doctor. To this they agreed.. Health Status [...] Once. Impression and Plan Diagnosis Sebaceous cyst ([id number] L72.3, Discharge, Medical) Plan Condition: Unchanged. Disposition: Discharged: time 01/29/2022 20:59:00. Prescriptions: Launch prescripti (more content not included)... Normal [facility] ED Patient Summaryon 022 ED Patient Summary [facility] - Emergency Department [address] [place] [address] PATIENT DISCHARGE INSTRUCTIONS Patient Information Name: ZULEIKA WYATT Age: 31 Years Date of : 1990 Reason For Visit: Rash; Medical problem - minor; POSS BODY INFECTION Arrival Time: 01/29/2022 20:27:46 Primary Care Physician: Andie Stoddard Attending Physician: Johnson Wright DO Comment: Visit Diagnosis: Diagnoses This Visit Medical problem - minor ([id number]) Rash ([id number]) Sebaceous cyst (L72.3) The Pharmacy at [facility] is open Saturday through Saturday [...] alcohol and/or drug addiction problems; contact the [facility] 07/01 Crisis Hotline -Text 5HIHA [place] [phone]. If you received any narcotics, sedation, or [...] legal documents With: Address: When: Andie Wyatt [facility] [place], [place] [address] Business (1) Within 3 to 5 days Comments: home warm compresses clindamycin for antibioitic see your ob, or Dr Wyatt, for recheck apt ----at some point, this might have to be removed; this is not cancer, but a retention cyst of fat material; Return if very red and tender, or fever, vomiting worse You are welcomed to return anytime. Call Dr Wright, ext [phone], if any question patric WRIGHT< ER PHYSICIAN< Heike Jones [facility] Medication Information: The exam and treatment you received today in the [facility] Emergency Department were for an urgent problem and are not intended as complete care. It is important for you to follow up with a doctor, nurse practitioner, or physician?s store assistant for ongoing care. If your symptoms [...] so we can reach you if necessary. [facility] Emergency Department has provided you with a complete list of medications post discharge. Please inform your non destructive testing inspector/provider of your visit and for further instruction on these medications. Any specific questions regarding your chronic medications and dosages should be discussed with your primary care physician(s) and/or pharmacist. New Medications Printed Prescriptions clindamycin (clindamycin 150 mg oral capsule) 1 cap(s) Oral 3 times a day for 5 Days. Refills: 0. Medications to Continue That Have Not Changed Other Medications [facility] Prescription (Quantitative beta-hCG) Quantitative beta-hCG. Please [...] Epidermoid Cyst (more content not included)... Normal [facility] TYPE AND SCREENon 12-30-2021 TYPE AND SCREEN Antibody Screen NEGA TIVE Blood Bank Notes performed by CV on 12/26/2021 ABO Rh Typing A Rh Positive Blood Bank Notes performed by CV on 12/26/[address] [facility] Comment on above: Performed By: #### R UBIGG #### [facility] [address] [address] [address] Juan Antonio Ibarra HEP B SURFACE ANTIGEN SCREEN on 12-28-2021 HBsAg Screen Negative Normal Negative [facility] Comment on above: Performed By: #### H BSANS #### [facility] [address] [address] [address] Juan Antonio Ibarra HEPATITIS C VIRUS AB W/ REFL EX QUANTon 12-28-2021 HCV AB 0.2 s/co ratio Normal 0.0-0.9 [facility] Comment on above: Performed By: #### A 1C #### [facility] [address] [address] [address] Juan Antonio Ibarra Interpretation: Comment Normal [facility] Comment on above: Result Comment: Nega tive Not infected with HCV, unless recent infection is suspected or other evidence exists to indicate HCV infection. Performed By: #### A 1C #### [facility] [address] [address] [address] Juan Antonio Ibarra HIV 1 AND 2 WITH REFLEXon HIV Screen 4th Generation wRfx Non-Reactive Normal Non Reactive [facility] Comment on above: Result Comment: HIV Negative HIV-1/HIV-2 antibodies and HIV-1 p24 antigen were NOT detected. There is no laboratory evidence of HIV infection. Performed By: #### R UBIGG #### [facility] [address] [place] [address] Dr. Juan Antonio Ibarra RPR QUANTon 12-28-2021 Rapid Plasma Reagin, Quant Non-Reactive Normal NonRea<1:1 [facility] Comment on above: Result Comment: Plea se Note: This test does not meet current guidelines for screening and diagnosis of syphilis. This test is intended for following treatment response in patients being treated for syphilis infection. To screen for syphilis infection, a reflex cascade that includes both RPR and a treponema-specific assay should be utilized, such as Treponema pallidum (Syphilis) Screening [place] (184771) or Rapid Plasma Reagin (RPR) Test With Reflex to Quantitative RPR and Confirmatory Treponema pallidum Antibodies (575180). Performed By: #### R PRQ #### [facility] [address] [place] [address] Dr. Juan Antonio Ibarra RUBELLA AB IGGon 12-28-2021 Rubella Antibodies, IgG 3.48 index Normal Immune >0.99 [facility] Comment on above: Result Comment: Non- immune <0.90 Equivocal 0.90 - 0.99 Immune >0.99 Performed By: #### R UBIGG #### [facility] [address] [place] [address] Dr. Juan Antonio Ibarar CBC AUTO DIFFon 12-26-2021 BASO # 0.0 103/ul Normal 0.0-0.1 [facility] Comment on above: Performed By: #### A 1C #### [facility] [address] [place] [address] Dr. Juan Antonio Ibarra Basophils/100 WBC (Bld) 0.3 % Normal 0.2-2.0 [facility] Comment on above: Performed By: #### A 1C #### [facility] [address] [place] [address] Dr. Juan Antonio Ibarra EO # 0.0 103/ul Normal 0.0-0.7 [facility] Comment on above: Performed By: #### A 1C #### [facility] [address] [place] [address] Dr. Juan Antonio Ibarra Eosinophils/100 WBC (Bld) 0.4 % Critically low 0.9-7.0 [facility] Comment on above: Performed By: #### A 1C #### [facility] [address] [place] [address] Dr. Juan Antonio Ibarra Erythrocyte distribution width (RBC) [Ratio] 13.5 % Normal 11.0-15.0 [facility] Comment on above: Performed By: #### A 1C #### [facility] [address] [place] [address] Dr. Juan Antonio Ibarra Hematocrit (Bld) [Volume fraction] 38.9 % Normal 36.0-48.0 [facility] Comment on above: Performed By: #### A 1C #### [facility] [address] [place] [address] Dr. Juan Antonio Ibarra Hemoglobin (Bld) [Mass/Vol] 12.9 g/dL Normal 12.0-16.0 [facility] Comment on above: Performed By: #### A 1C #### [facility] [address] [place] [address] Dr. Juan Antonio Ibarra IG # 0.03 10e3/ul Normal 0.00-0.03 [facility] Comment on above: Performed By: #### A 1C #### [facility] [address] [place] [address] Dr. Juan Antonio Ibarra IG % 0.3 % Normal 0.0-0.5 [facility] Comment on above: Performed By: #### A 1C #### [facility] [address] [place] [address] Dr. Juan Antonio Ibarra LYMPH # 1.4 103/ul Normal 1.2-3.8 [facility] Comment on above: Performed By: #### A 1C #### [facility] [address] [place] [address] Dr. Juan Antonio Ibarra Lymphocytes/100 WBC (Bld) 14.5 % Critically low 20.5-60.0 [facility] Comment on above: Performed By: #### A 1C #### [facility] [address] [place] [address] Dr. Juan Antonio Ibarra MANUAL DIFF REQ NO Normal [facility] Comment on above: Performed By: #### A 1C #### [facility] [address] [address] [address] Juan Antonio Ibarra MCH (RBC) [Entitic mass] 29.6 pg Normal 26.7-34.0 [facility] Comment on above: Performed By: #### A 1C #### [facility] [address] [place] [address] Dr. Juan Antonio Ibarra MCHC (RBC) [Mass/Vol] 33.2 g/dL Normal 29.9-35.2 [facility] Comment on above: Performed By: #### A 1C #### [facility] [address] [place] [id number] Dr. Juan Antonio Ibarra MCV (RBC) [Entitic vol] 89.2 fL Normal 81.0-99.0 [facility] Comment on above: Performed By: #### A 1C #### [facility] [address] [place] [address] Dr. Juan Antonio Ibarra MONO # 0.5 103/ul Normal 0.3-0.8 [facility] Comment on above: Performed By: #### A 1C #### [facility] [address] [place] [address] Dr. Juan Antonio Ibarra Monocytes/100 WBC (Bld) 4.6 % Normal 1.7-12.0 [facility] Comment on above: Performed By: #### A 1C #### [facility] [address] [place] [address] Dr. Juan Antonio Ibarra NEUT # 7.7 103/ul Critically high 1.4-6.5 [facility] Comment on above: Performed By: #### A 1C #### [facility] [address] [place] [address] Dr. Juan Antonio Ibarra Neutrophils/100 WBC (Bld) 79.9 % Critically high 43.0-75.0 [facility] Comment on above: Performed By: #### A 1C #### [facility] [address] [place] [address] Dr. Juan Antonio Ibarra Platelet mean volume (Bld) [Entitic vol] 10.0 fL Normal 9.5-13.5 [facility] Comment on above: Performed By: #### A 1C #### [facility] [address] [place] [address] Dr. Juan Antonio Ibarra PLT 194 103/ul Normal 150-450 [facility] Comment on above: Performed By: #### A 1C #### [facility] [address] [place] [address] Dr. Juan Antonio Ibarra RBC 4.36 106/ul Normal 4.20-5.40 [facility] Comment on above: Performed By: #### A 1C #### [facility] [address] [place] [address] Dr. Juan Antonio Ibarra WBC 9.7 103/ul Normal 4.0-11.0 [facility] Comment on above: Performed By: #### A 1C #### [facility] [address] [place] [address] Dr. Juan Antonio Ibarra CULTURE URINEon 12-26-2021 CULTURE URINE Culture Observations : LIGHT GROWTH OF MIXED GENITAL ALONSO. NO POTENTIAL PATHOGENS SEEN. Normal [facility] Comment on above: Performed By: #### R UBIGG #### [facility] [address] [place] [address] Dr. Juan Antonio Ibarra GLYCOHEMOGLOBIN A1Con 2021 ADA RECOMMENDATION SEE BELOW Normal [facility] Comment on above: Result Comment: ADA RECOMMENDED LIMIT 4.0 - 6.0 ADA THERAPEUTIC TARGET < 7.0 ACTION SUGGESTED > 7.0 Performed By: #### A 1C #### [facility] [address] [place] [address] Dr. Juan Antonio Ibarra Glucose [Mass/Vol] 114 mg/dL Normal [facility] Comment on above: Performed By: #### A 1C #### [facility] [address] [place] [address] Dr. Juan Antonio Ibarra HbA1c (Bld) [Mass fraction] 5.6 % Normal 4.5-6.2 [facility] Comment on above: Performed By: #### A 1C #### [facility] [address] [place] [address] Dr. Juan Antonio Ibarra US PREG TVon [...] by: FELECIA GOLDMAN Date: 2021-12-07 16:[address] [facility] Coding Summaryon 11-21-2021 Coding Summary HTMLBase 64 TokxxmddFLz3hSh+PGhlYWQ+PE 8EBEAjE11ibYAloN9TG0lZQF9V RZSAKRCIGM7HTJ8iuBD6LJtgI7 VybiAv NnikkLUfPA31TIr3SDD7sRycFS ifvX1ucOGgG0y6HtGmEH84yM42 CIppMHYjJdF5GfEojkxgyWCe T4mdXcVcoNGaQzx+PHRhYmxlIH gxVVVuFKykXMOwRrNhpOvnJL9s Rb8eJDRaAGLjhGotsSPzRtBn q1dcYSOmYQwdZU6kkRtwE7VhaW Z5AGZti8t7Co09rGA+PHRkIHN0 kZejEAqps151QoGju4jrHAY4 jWBlYAzlSAB3S25mw2Q3WBBjLM EoVSQ6qDZ1qY5qpTwlvejsZ6Wf lYSwCpU6CXQ1xKOvdM7ipXir rotwmR2nRrz+R61BTV4PVTIYHU 5DPyu5A0LvVrsajFP+QC30XVMp JB36xRIjqZYcp5zhrNh6BaZz FLOqYEF2fZxvDBlmx7JtXOWdS5 9vwBDun7P5AMIueMhjuXXoVyBv iUV7cE8fTCgeoidtd1psrskp Hntrm4eaur83vL64D12rJXjgBJ SyWGE1JPQpCMOcwXwswp1raK5a Ii8+DYxot4gcf8eopJx8SgQt VZNzixSdfMfyGZZ4h4NvDo03G2 MxvQboz2FeFyb3kg42sTXqe6N7 bWU4OMtcZYFdoP4fXLgoAgN3 SESsQbMlqK88zZYuKVfaSo1vhW mmxOynKJ5yHCBjdhtsJIFdyZ5h LDVnrUQfcJpdJS9yUCTvfcii t756QoWiXDA6YMSfyEWvX1DllX 7gYiLhRHWhOPMcE4IkuICvJUin M512YKysQwA5SQBbvaFeN9Kt WTJyyFboMvD9o1U5Bl1Li2Fbvp myLRW2GZfwTMX0BrR3QnQvEkA0 J8MoYog0AALprFzkSF3nI9Nw DMEjcfgxxayeyJT4JDCeZIGccW 25oQPlGWdzLn9ip5Y8h433TXZi WZBtbN92Kr5utLuvBANwhRDE xA9vaasqj8vfiqqiMhXgBFYuIU o7IOa3TLIujVqjDcMgKZD6UpE9 KAS1vINhfX7jyDicsxhkeY4o Oyc+S15spP8fNXW5XWX2tyhrNN IqfcDvVD73OP57U6VoHggtzLPz bGU+SNSxjwUxfXjcDC9gLpYv v7kos2EwSHstW9JfGNAaUZvoZi c2SQDkZRH6nNE2bB3wMYLqXQse e8C5qZM7S9HaejTdpc0bj8jl BMScPJdjL94ecAYpg4D9LCImyB U8TEIvbUcnTuIgjP19Mim+PGNv aUxil2YbOgybh8ipu2dfhRw4 IjGeGAYqmrFibBviFMX7b2DeQp 85T98oFRduSXZzUTKhXRPqKVUr ePojuq6rnQ5aGf8+PGNvbCB3 vQC9bA8nNVOcGwI7VHtyE396Gk JcpWYsMdsdd6unr3jheZv8IfLf HBIjcrFysVzcYDB1k0LxNo71 Z48hHKynJZBfZFGfXOCtKDQryU wnqk3wgO4eZd2+RJ2zd6lpko15 xS37wIH+OBZqMDR6sDleWPcm DWEpaK7xXHgyWrZ1LDLlUlCxiN 42nYYlVHyzQw3kkShrrVzkCY9h ZMUhvijad030RcFlo3lsZITb fNXsKUksAGS6D10ta6M5EBEiJM PoFVO5qCK5sY0fvPulqeknfYCb hDbonyYwpOffYKuzWLzlV417 IHRvcDsnPlBhdGllbnQgTmFtZT n3X1CvEbr9XFFfiSwsUG2llWQy LUnoYc8ahIlszVlkUL4hSISx nrgub655MeNae2giRDVtaXTxIK qbFTP3S40nb8L5TAXoOLMtRAW5 lQR5rM1uyEmokbotsBHrfTru ehMkeJxoCVozWIraM287IGJqrM fkXwObyaPdFYJvmQT0PN55AC29 qEElq4D6sXT1S2ZyJVSsjdiu csfzkAS6OGKaSTRsfP78Da1dbB yiTn0cHVRqQMV8YETsqUJuZ4Sv rL9uNdAdJEMiBZIbX9DqfTNs OXshT899QCnfZlW4WEFiakNfM4 SpZRSixOwoRgT0s1W0Bg6EB0G2 HC20JH87eHEua5C8sAI9R2Al OQVhqxigecmwfHU2AJAgVBOyuE 56Ws5lfKslDj2hOWXrFTC3NBIf cEYfT2ObpF2lXsWqMHKxMWJg O5WksORoKEifD436YDchQqM3NZ ImuwBjG3WpWPHhbZdvIdH5c3X4 Yz3RJBb2GT38YR22lUDpa9S1 oDF6H4RxHTAfbsyhkfilmOR5EE FyOBTymI29Yl3eaJhaHl2iHODc JLY8KIXawDNwN2EzlQ2nRsYg IXQeWNAcN7IwmJCzBRteH325CW faVpS0CHNyazUhX6FoLNHgkHdn StY2v8W1Jc6QICVxZK37MCO8 qGK9IG55LK57H2BkIggdmCJwfC U+PHRhYmxlIHdpZHRoPScxMDAl NqIwpTwfOG6sCj4oIPXpEIXq tGoliOYiTlNoz5hhEKTzRHfiML 3tsUhsY5EfpAS2ZFPce9z2Jp31 E10lW2XyxXN+DMAafIV2lZF0 cL2dDkJpGiB1TDvnD511SqQhzC BoFnhfw0pvn8avzNt1UhJ1ZOEm rgJbfOoxLHD1i1VnEk06F99m IHdpZHRoPSIxNSUiIHZhbGlnbj 2aaY9hWh3+YZEerTI2mVR3cY7r GeXbWjH8DLtxF184GcUwkZAa Egdgw0uav7blsGd8SuFjAWIlgs MwlOdnXRS5k7YhOl18X8ZgiEhv u6CkDkk6cw51pAKfe0D2sUB7 B8SlZLGjxeamcQAzlGvpTD9lFY XaliztSLPygH3yPLUnM8d6LvKu OvF3WNysL1SmdlM1QIVtaMYa NHqoJZS4X68cc0Z3INDsRBJyJP F5kQZ6hT9tfPawtilsnHWmlFmt ooXqbOixMSaxQJtqW818EZYv dRqnVASxrY8iPRSbyMDjqDqxJC 4wNTBpbjsnPlNURUlOLCBWSVJH GI7ISIPGBTH6G7AfSdo2DWWw yLagAU7plRTjDIwvIw1ntXhazG tdDN7fHUWvhkulDHKhsT7hLEJx iVLxfWxwMG3gSZPhxshvl276 XjWsYIH6QLKpgOLxB5RwbG9gNj TaLCCfJVSiP0SokFDuGXztB728 GHjmIrH1AZMjgrRuW7AkMYIm sUszQiO4v6O7Ae7jVN5jWS7uMT ynMC41LO15sFRgz9E5nUM1U9Eg FHOywjboovttzBU6RUBiLYGb kA48lCVlCSyaCu6pr4Y1s150UJ IjVFOqmN50Zh8bmZdlZJIhvPLL eK4kujxvo9ymzbouEvBdSXIp GBu7ZCz1NWTqzYfrFeThOSM0Xb A6SNM6hOZhkL0wcUezevmloO0q Oyc+SuubOHIyfbS0Y2CsStw4 PAHwtLorGF3pdBIjWDhcVn6opX gckBfrVW3sWFRazcnpGBVimS2e EZTcaNEopZbyKG9fEPXmqpkp i008WiOsNHP0PRHzzALvO3XziE 7bDnZsBZSbRFAwI6BxlKAvNQnr I448UIurVuA1OFOvfaFmQ7Jb POWnzDddPoU8r6F6Gs0DSG7THD S7W8YyOxl8QJBxhHkrRZ8ynGPu LSkeRa7xpAwvlPhtDT4mMMCg bodqKKNbqQ0yICOjxBXybTgaXL 0lQLHtgjjva454RcBdESL7JHCa mZGuG5CdbJ0aRpVzDZZlEXCe V8KjiZDuMChpW713IZktDqF8WL QkclDbG7WwBUUvgGpiGwP1d4F6 Tu3BLNqmzVM+KI79en70O7Rk GpeyEom7FNOlIDO6sPG8sM5mGN GsNSmar9A6yEH6U0YwljNjgj0f e7xaAXHcRXdyI02kpOTqz8F5 HOAgtKU3TXBtcFnkAfEixD36Do c+YFWfwXuio9MqXxzok1omz4kq zFs5IsYgQHBgjeMinCwhVKU8 k8RqAq01O62zMRiwUAJgAEPtGW EyTTJjuEtvvu6zgL6wHy4+PGNv cQG9tWC7rC5mCwFvDaT1HLqg Z560ClXvgJJjGkbdr4qjn6jigM f4WgRdJOHsjyLxqKodVQG3a6Hz Yb10N6FesBsvk4ThZwd0yo78 vBYxs9B3mKY4R1BtZHTtxjxwiA AuqBmeQT8uHKAychikTNGwyQ9x RXRdA4o6HeBvQdU1MGslT7Mn auL5YPHuaJQiFGGcvJZBbN8bba qkl4plqnmnLjPgYLDbNRk2DGi7 VZEsxFdvDgKhCOC1RpY4EQD5 rEWjsV6deVlzckfgzA6gLrv+UG d6m4yjuKMwRR3lcMA4MW38OR05 rIBab6D6gJT7P7FzCXHxugig mqwzsEE2YHDfSUAtqZ97Ij3sfU pnMt8rLGToPKI2RZBnoOLcN6Dx lI1lVfNfTMPcUYHjB7MyzCGj CYksP539LScnUoK0NLHaleXrK3 XqMOMxuQesOeH3k5J2Bp8BAI57 AF94OM24dCRgc4S6bMD4Y7Sr KAAehmzzfycgzHZ2OELxVPAjhI 92Qb7kaSdbVs4fLNSnUJN5XSNy cKCmM7ExaF4kTqFvOMOqVWXr S2AppIBuAIwqE944MXneHbI3IU GefgPlX1UzWZLsiBiuQhP9d0E3 Cp1VBz45NW48RF45wSQkq8H2 jZR5N6RnHUMlvdlguytmeZY2OH YsPNDtlZ90Fc1lfKpkZq3iXFFu FDY9UFPviROuO9ZkeI5zNtBt GHPvKBPoQ5NqnBMhSSgbX703JN wkBoC5KWDlrpDjF1DoUNBmuRmw ZiU3f7M0Ij6BHWznxxv1L1Dr PjwvdHI+TP51THZdPO58pEJoeY Gqt6xmaIa9WyBmHPHwPCF4yFeg DTssp6VjOZWcI52vsWSoq8B5 IGN (more content not included)... [facility] Coding Summary HTMLBase 64 QrtdwmlpSXc9xXq+PGhlYWQ+PE 0XOLFpU39fqVAqnG0HW0vCHK3D AYNUXZKXXC9QBX8foTZ8WAdgK2 VybiAv KalbdETjJE21JMk2JEW1pLpgXA cosL8zrULtO8g1WfHtTQ63fA08 RYdfCVCuIuS7UfPbluoikMOm X4trXpGjlCDyJro+PHRhYmxlIH wqPIIlJIonYLFjLlMxwWwtHF2g Vy1rAJEeDPHkiNxbcYTjEwWg x9vjLNYsQVzxCB5opIsxH6ClsW D8HPQhs6u9Yq50dJY+PHRkIHN0 dYwjZHwzd485HuUic7dvVLS3 aKBiPRbvPTC4D98mh6U6ADAlNQ KyUIT6pHL7lQ6ooXbsgqcbC7Qy zVWmAnL7JPM2xKNfgE3ylCxb sfrcaZ4pZxf+C30TZI6FUHCMKS 9WPur0K9HlZedxuDF+CW02JLHx SF68sBEtbODwb7qhwXu8FvOt EYAuVAY8jShqXNolu2YiVTHeJ3 6gnSFtl1W3PAOygRnzmXFoYkPy nIB4oL8mDUrowqirg3dpvadn Zfynh3hnda23vE08Q65rUXqtLE XxPLH3ZOLtCCUlsCnivv3aqH0s Ii8+GFzez6hfm4yydXa9YkJd KVXuykVycKgkJKW6q9PwAz51C2 OucByvi8GmOcj7if49bSHaa4U1 gEH9NHlcDKYegE5aPYplHdS5 YPHjSsWezZ56dNLySGymKn5xaH doqXmpDO7rLRNmwgghAAHuvM9m XYPhkYWhsXrlOR7zMNHyxqft a758WmFrUSI5HFMugCGeB1QzbQ 9bVfBpATMrUMBkB8CagCAmCZpr O804SWqhLiS0ZTGqfrMpY3Dz ZDNadBthWvI3i1X7Jo6Mq0Erjm hgSRL3ZFpcEUR2PhC7PxUiOxV7 R5YlNmt1ESRfoDuyMQ2zH6Uw AUWyjyverocrnNO0QHLdQNSwfX 04hLNqMYduOm0au6C7f921UDIj BNHrnO09Cz9prKvhGUZihEYG hP3onskdg6stkkkyPbViIJKnBH c2ZDs3XCAcbUsfRwOfZGG7RoN1 EYV5zHMgrE9vvSggwocxqX2b Oyc+H61ywW3tRZV0SGH8cquzXN IklbUbLY46PD47P2YlFtxamDRc bGU+JTBtbvHsqYlfCS7aCgHv w0hzw1CnNCkjZ7UhUUCxZWyzZg a8PUAiVJN2kFE3sF3mEGQmWTpi v5K5xYY5M9EmgaIrra1hd1do APPvJKhkJ50kjQOru1L5CGMhiT O9OVOvhClzOuNqlX75Ksw+PGNv gQuoj8AgLrxrw6zzu9pfgWb5 BhBsYFZkqjThqQvoVQR8i0GnRr 02L95jEUqpKOJvMEPnTJDkMTZr lHblyt2bxA0fEu6+PGNvbCB3 jYH9kI6fQTTqAmB9AWbaP554Ry IkpOWoAvghu8yqs6dycKy6UzOd SARqwqTxiVjdPXE9o0WdMo30 Z05tIXafKWSqKAEgUMBgZBNywH xzxr1qkV9rEy7+WW3uo4umgk35 vR05cTX+QIWqRRI4hYxxVHgv NFEmqZ5jJTbjReJ6OLMeUcRkvP 63jJGyFAzsUk7piYfuaKipIK2x OKOthlxpf626SyNho2tvOROy fMKlIIfoAVJ7Y14ns8Y6CMTyCB VoXAF7fMZ3aS9arLyglyuroBJz fZdjrtOwjNkcHGpcDFqbU222 IHRvcDsnPlBhdGllbnQgTmFtZT m8H3VmMbk4TQBcuFzzRT8lpNNw BLxeQk1kjDzsoHrtEF6tDKAu gixut747YzNwx9avRGIziHBwQM tyNRT9Q12ti7V9JRIyTPNlKIJ6 uEL9tG0eoFtppyrzdHUudYvx cmCoaBakOZszKWjwL320PRMrsH fkDuSkacSrRXGmwIT7IW09QZ90 cINsz2U0sHA7Z7MoNRGgahfm glvibAU8TUUmLFOqcO28Fd7pyM mqEl8rBIEmHRI8TNEgrKCdG2Pg fO7iXkKhLAPsHSTpO3BnvNAp PGcoS257LGegTcK5HWIqicTdT8 KnUHFhlYbyQtM9i5Y6Nl9EY5W3 PB48DV59yNMbe1Y7uDN5W5Rx CXCphjalciediRM5URMaWVPszJ 87Np3cqNwsPz3yZFNfXIH8BCKx pLOjG7WhuD5nUpIwDEZiBCMd Q0LrnICgGGcnJ888GNnhVqL9BU BitjNpQ0XtSBLjtSdfEfA4g4W0 Cw7AIEu2RV49QQ42hIFyy3S6 uVV1K9JfQTEakcyoelowqRD9IG AcJLYvuQ05Gq3nuDclEj6kDBLt OYV4ZNJekUXpH2JdqR4sMgZd AXCkEOAdM5ZqfWFhRFweE033NJ ojCqM0CJXlwuHcK5QlSXIvjJqh FsA5n3W1Ib2VDNEnNX64NFS9 aCM9QV73LD08P9ArPazdwYIlgA U+PHRhYmxlIHdpZHRoPScxMDAl IhNvyLhqLV8dQv7aNVUkNWSr eTkjzQBwGdDum1rcKBHnYWpvRV 3icHtvD2YxsTX0SHWvf2l7Hn75 B29kE6XvzIX+VCFbeZR6fHP0 nI3uEhOqPuF9YYehW828PpNsxY ZyOipay2msy6hvySb1TkT8HNPp mvPbxTygSZI8i6TmHc28H46d IHdpZHRoPSIxNSUiIHZhbGlnbj 1piK8qPe4+KIJszEY3bWT5kR7m ThTxFeA1KKsaU453InLlvBMj Sizhe5jsr7yeqPl4PjOaFVSxir RmtCakXJN6f5KuGm44A8FauTyf r7HcNqg6wz14yBVgy5Z5jHR5 O5EhQWOelonbrKIcjJgjVA8rVQ IovjylINHhgB5oZJNgE6j4AuQe YxA8CMpyN2YnafE5YFHxpWDo HOdeWLU3L45tx3B6BEIiYLJzEL U4kVW7yU4kuWjlqpqfyLZxnViy irExlRhwDRprTKitV300YFIj gYwgFZGhmL6aMYSkxIWqhKejLG 4wNTBpbjsnPlNURUlOLCBWSVJH RQ2KFDTCJYA2K0NrKcj0CPMk cIhyZO7scNMoQQhzQv7vvPeztK enWH2zQFPmgsymSUBypU0sGSLk vIOgiHteRQ5gKICvlhumc204 KlBkQJZ8MEApkRWvZ0PeeH0uSb UfMUCiKTJmX4TmeHYbKVzuL617 KMjtSoW6IYDuigFyT3IoIPYw aHkbQpI5j4P0Uf5mCD6qCT6wXX vlPS64PZ65qQSxj5E9pGS1U9Tt INZzzdckbkfrvEC1BQRtDGIh dN58sINjOXweNk8sq2H2h634MZ AlDFDycE56Ze9hhHtsVXYchQAU bL9ycyudo7psjaugBeBbGHOq TGe4IQi1RBAtuLfmPuZpXQH2Lc X1XYL2qKUkdG5uzJgcxyitxS7y Oyc+FojcMAHheoD8P5YhRlm6 HWLjfRpvIU0lzARpONpkSp0hlI wbePwlCK7fWGPvitrmUVTzpO7n UKIbbUAurDieTA9lWMAaegxi t649EzPvCDO2AKPcwXVrX8EeuX 8pRySfYVGsIYQlU4NauZRuBVve W967LWshNqU3FEIpkmZjH7Hr ZVHlqEktIxG3q3A5Ah9WDQ7TKN P7Z2AzZvb3SNBhzNxwFZ6orQHa LOesZm1tdFxvyHquLV2xPVMj ghtfNRXbcF8gLKGmdCVggNuvLA 9sJYUqqpkdh272ZlBqTXI3RQVf zZIrK6HksW2oRzKwLJTbIOKe R3ImgTYrDYlnL357JFlyVcF4YQ EkhjSpW4HkEXChxMqbDsW1e6R1 Jg2AxTFjF6IpE2j5T8GgAynk dHI+IP09OLQwAU08nIAluQEau5 kiwRk8MrCjKQCfOYA0iGxqLXxz n2ZhJQWlN49quGHup3W5KRKk pSbehGEwPjGplGH5wJ0lNGsmgo xhx0zqzvknNgdjc0yfsv90tK94 F32iKEveTZHyVHBzXECuVDKo oOkqbh7thJ4aPt4+DRPagSJ8eU H8zL9zQaLsWcJ6SGyfC713KgPk aYTgInknr8far6zruUg6DqEn CFZshpZafCoxKFH2y2LwKe09F0 9sIHdpZHRoPSIyMCUiIHZhbGln fw3yeZ7iZu1+KS5rg2hfxv76 mW90nIE+YYUnZQT5jDcwCVnkZI MhxT3bSGyiFkZ2VRIwUrQxcQ36 rTNwXApkYj4tuRvqaYcaYZ4m ILKimxpwg091BgUce7owIQNmdO HcINssEZI0G55cz7J8TAVmFKHy EVM3hEM6tH1liVzlavrgvCVj zCbiybLsdVapJEeaBOocQ886TD PzqClsYkXvbJTvF5mutqHJAJ0o OjwvdGQ+ZQRvIWL4dLgxTQzm FJEcrQ6eOSVlX9i1EyYxWsP9LY edV5EchoQ9NAHneYAkWQScxBOB aZ4xkomde6oqsenhSqZqUVRu RZp8FUq3TLEqnLvxMtUiMEI1To H3NUQ3xPTekC2ptPbnzwmdlE2x Oyc+RklOOjwvdGQ+PHRkIHN0 eRefIRwkXLYtiN0zWXGdH6o5Un UwPgN0BZfeR2NmyuD2YMZkgRMs BSGdwJIYhS2eairgz2imuxwo JvVcVCQqVXv7TDg8YZGwsPciSl LzEAO7KfB2JHA3jROlyZ5vzNpb reoyyN6xFnt+TVJOOjwvdGQ+ MRCmTLI8xOlbPGajDEGmsU3zLF DeR7e6TuWeKjI7PKrsU3XwpdW7 GLFhoCWnDKEvyGLWnF5yvhlj s4ixtyfdVnIxFKXuSLw5CHa9NA JmrCpdXpEzMLL5DlR3SPM5kNLi sE6wcEibxfdhlO6oRgu+UGF5 CCW6ZD59DT84S8CsLlilmQEzsB U+PHRhYmxlIHdpZHRoPScxMDAl YbWnvZmmHY8oJp8bXTHzWFGl bGx (more content not included)... Normal [facility] ED Clinical Summaryon 2021 ED Clinical Summary [facility] - Emergency Department [address] [place] [address] [id number] ED Clinical Summary PERSON INFORMATION Name: ZULEIKA WYATT Age: 31 Years Sex: FEMALE : 1990 MRN: Acct#: Visit Reason: Rib/trunk pain-swelling; ABD PAIN Arrival: 11/13/2021 16:30:24 Discharge: 11/13/2021 18:01:00 LOS: 000 01:31 Check In: 11/13/2021 16:30:24 Checkout:11/13/2021 18:01:00 Address: [address] [place] [address] [address] PCP: Andie Stoddard PROVIDER INFORMATION Provider Role [...] With: Address: When: CUONG ORTIZ [address] [place] [address] Within 1 to 2 days [...] results be sent to Dr. Ortiz, your CEMENT FINISHER physician. She will contact his office tomorrow [...] Patient/family/caregiver verbalizes understanding of instructions given Comment: [facility] ED Note-Nursingon 11-13-2021 ED Note-Nursing pt arrives [...] with steady gait and no assistance. Normal [facility] ED Patient Summaryon 022 ED Patient Summary [facility] - Emergency Department [address] [place] [address] PATIENT DISCHARGE INSTRUCTIONS Patient Information Name: ZULEIKA WYATT Age: 31 Years Date of : 1990 Reason For Visit: Rib/trunk pain-swelling; ABD PAIN Arrival Time: 11/13/2021 16:30:24 Primary Care Physician: Andie Stoddard Attending Physician: Gamaliel Wyman MD Comment: Visit Diagnosis: Diagnoses This Visit Elevated blood pressure reading (R03.0) History of abdominal pain (Z87.898) at early stage (Z34.90) Rib/trunk pain-swelling ([id number]) Prescription Information: If you have been given a prescription for narcotics, seek immediate medical attention if you have any difficulty breathing or any sudden status changes such as confusion and sleepiness. If you or anyone you know is experiencing suicidal thoughts, mental health, alcohol and/or drug addiction problems; contact the [facility] 07/01 Crisis Hotline -Text 4HQPF mu 769755. If you received any narcotics, sedation, or [...] With: Address: When: CUONG ORTIZ [address] [place] [address] Within 1 to 2 days Comments: Diagnosis [...] results be sent to Dr. Ortiz, your CEMENT FINISHER physician. She will contact his office tomorrow [...] you received today in the [facility] Emergency Department were for an urgent problem and are not intended as complete care. It is important for you to follow up with a doctor, nurse practitioner, or physician?s store assistant for ongoing care. If your symptoms [...] so we can reach you if necessary. [facility] Emergency Department has provided you with a complete list of medications post discharge. Please inform your non destructive testing inspector/provider of your visit and for further [...] Temporal: 3 (more content not included)... Normal [facility] hCG Quantitativeon 2 hCG Quantitative 74255.0 mIU/mL High 0.0-0.6 [facility] Comment on above: Order Comment: Pleas e call or fax results to Dr. Ortiz's office Result Comment: Resu lt confirmed by dilution Post-Menopausal Reference Range is: 0.1-11.6 mIU/mL Performed By: #### 7 [id number] #### [facility] (DEFAULT) [address] [place] [address] Coding Summary.on 12-19-2018 Coding Summary. CODING DATE: 019 FINAL [facility] STATUS: Left Against Medical Advice PAYOR: [...] Boykin Date Saved: 12/19/2018 10:35 am Normal [facility] ED Clinical Summaryon 2018 ED Clinical Summary (Inserted Image. Elena ble to display) [address] [address] ED Clinical Summary Person Information Name: ZULEIKA VILLALTA Yu/[facility] Age: 28 Years : 1990 12:00 AM Sex: Female Language: PCP: Marital Status: Phone: [phone] Visit Id: Visit Reason: Test; MENSTRUAL PROBLEMS [...] 12/15/2018 5:58 PM 12/15/2018 5:58 PM ADDRESS: [address] [place] [phone] [facility] DOC NOTES: MEDICAL INFORMATION: Prescriptions Given: PATIENT EDUCATION INFORMATION: Instructions: Follow up: DIAGNOSIS: Normal [facility] ED Patient Education Noteon 12-15-2018 ED Patient Education Note Normal [facility] ED Patient Summaryon 019 ED Patient Summary (Inserted Image. Elena ble to display) [place] [id number] Patient Discharge Instructions Person Information Name: ZULEIKA VILLALTA Age: 28 Years Arrival Date: 12/15/2018 4:37 PM Discharge Diagnosis: Primary Care Physician: Provider Information Primary Provider: Advanced Tube Coremaker:None The exam and treatment you received in the Emergency Department were for an urgent problem and are not intended as complete care. It is important that you follow up with a doctor, nurse practitioner, or physician?s store assistant for ongoing care. If your symptoms [...] opioids can be used to help relieve ewtwwenr-ew-clooru pain and are often prescribed following a [...] be struggling with addiction, tell your health lpn care manager and ask for guidance or call SAMHSA?S National Helpline at 2-504-161-AKWV. v Source: [place] Department of Health and Human Services/Center for Disease Control & Prevention [facility] Medications Given: Medication Dose Route No medications found. Medication Information: Comment: Pharmacy Information: Thank you for choosing [facility] Patient Education Materials: JADEN Jacome [place] , have received the following patient education materials/instructions and have verbalized understanding: Patient Education Materials: Follow-up Instructions: Prescriptions: Patient Signature ____ Clinician/Nurse Signature Date 12/15/18 17:58:10 Normal [facility] Progress Note-Nurseon 2018 Progress Note-Nurse Patient: [...] to take care of her daughter. Normal [facility] U BetaHcg Qualon 12-15-2018 HCG.beta subunit (U) [Moles/Vol] Negative Normal [facility] Comment on above: Performed By: #### 2 [id number], [id number] #### [facility] [address] [place] [address] UA With Cult Reflexon 2018 Bacteria LM Ql (Urine sed) TRACE Normal Trace [facility] Comment on above: Performed By: #### 2 [id number], [id number] #### [facility] [address] [place] [address] Bilirubin Ql (U) Negative Normal Negative [facility] Comment on above: Performed By: #### 2 [id number], [id number] #### [facility] [address] [place] [address] Clarity (U) CLEAR Normal Clear [facility] Comment on above: Performed By: #### 2 [id number], [id number] #### [facility] [address] [place] [address] Color (U) YELLOW Normal Yellow [facility] Comment on above: Performed By: #### 2 [id number], [id number] #### [facility] [address] [place] [address] Epithelial cells.squamous LM.HPF (Urine sed) [#/Area] 0-2 Normal 0-2 [facility] Comment on above: Performed By: #### 2 [id number], [id number] #### [facility] [address] [place] [address] Glucose Test strip (U) [Mass/Vol] Negative Normal Negative [facility] Comment on above: Performed By: #### 2 [id number], [id number] #### [facility] [address] [place] [address] Hemoglobin Ql (U) Negative Normal Negative [facility] Comment on above: Performed By: #### 2 [id number], [id number] #### [facility] [address] [place] [address] Ketones (U) [Mass/Vol] Negative Normal Negative [facility] Comment on above: Performed By: #### 2 [id number], [id number] #### [facility] [address] [place] [address] [place].plasma/[place] .RBC (Bld) [Mass ratio] 0-3 Normal 0-3 [facility] Comment on above: Performed By: #### 2 [id number], [id number] #### [facility] [address] [place] [address] Nitrite Ql (U) Negative Normal Negative [facility] Comment on above: Performed By: #### 2 [id number], [id number] #### [facility] [address] [place] [address] pH (U) 6.5 [pH] 5.0-9.0 [facility] Comment on above: Performed By: #### 2 [id number], [id number] #### [facility] [address] [place] [address] Protein (U) [Mass/Vol] Negative Normal Negative [facility] Comment on above: Performed By: #### 2 [id number], [id number] #### [facility] [address] [place] [address] Specific gravity (U) [Rel density] 1.010 1.005-1.03 0 [facility] Comment on above: Performed By: #### 2 [id number], [id number] #### [facility] [address] [place] [address] UA Spec Desc Clean Catch Normal [facility] Comment on above: Performed By: #### 2 [id number], [id number] #### [facility] [address] [place] [address] Urobilinogen Qn (U) 0.2 {Pamela'U}/dL Normal 0.0-1.0 [facility] Comment on above: Performed By: #### 2 [id number], [id number] #### [facility] [address] [place] [address] WBC Auto Ql (U) Negative Normal Negative [facility] Comment on above: Performed By: #### 2 [id number], [id number] #### [facility] [address] [place] [address] WBC LM.HPF (Urine sed) [#/Area] 0-5 Normal 0-5 [facility] Comment on above: Performed By: #### 2 [id number], [id number] #### [facility] [address] [place] [address] Auto Diffon 12-12-2017 Basophils Auto #/vol (Bld) 0.1 E3/mcL Normal 0.0-0.2 [facility] Comment on above: Order Comment: Order Added by Discern Expert. Performed By: #### 2 [id number] ####[address] [place] [address] Basophils/100 WBC Auto (Bld) 0.9 % Normal 0.0-2.0 [facility] Comment on above: Order Comment: Order Added by Discern Expert. Performed By: #### 2 [id number] ####[address]EN [id number] [place] [address] Eos Absolute 0.0 E3/mcL Normal 0.0-0.7 [facility] Comment on above: Order Comment: Order Added by Discern Expert. Performed By: #### 2 [id number] ####[address] [place] [address] Eosinophils/100 leukocytes 0.4 % Normal 0.0-11.0 [facility] Comment on above: Order Comment: Order Added by Discern Expert. Performed By: #### 2 [id number] ####[id number] [place] [address] Lymphocytes 1.4 E3/mcL Normal 1.2-3.4 [facility] Comment on above: Order Comment: Order Added by Discern Expert. Performed By: #### 2 [id number] ####[address] [place] [address] Lymphocytes/100 leukocytes 16.6 % Low 20.0-55.0 [facility] Comment on above: Order Comment: Order Added by Discern Expert. Performed By: #### 2 [id number] ####KADEN BairdKavMqpv5447 [place] [address] [place] Absolute 0.5 E3/mcL Normal 0.0-0.7 [facility] Comment on above: Order Comment: Order Added by Discern Expert. Performed By: #### 2 045770 ####KADEN BairdLnoCkdc6459 [place] [address] Monocytes/100 leukocytes 5.5 % Normal 0.0-10.0 [facility] Comment on above: Order Comment: Order Added by Discern Expert. Performed By: #### 2 791249 ####KADEN PtwNxrr9143 [place] [address] Neutro Absolute 6.7 E3/mcL High 1.4-6.5 [facility] Comment on above: Order Comment: Order Added by Discern Expert. Performed By: #### 2 184247 ####KADEN Luceroo[address] [place] [address] Neutro Auto 76.6 % High 37.0-75.0 [facility] Comment on above: Order Comment: Order Added by Discern Expert. Performed By: #### 2 768631 ####KADEN Luc[address] [place] [address] CBC w/ Auto Diffon 8 Erythrocyte distribution width Auto Ratio (RBC) 15.0 % High 11.5-14.5 [facility] Comment on above: Performed By: #### 2 446381 ####KADEN Luceroo[address] [place] [address] Erythrocytes (RBC) 4.94 E6/mcL Normal 3.90-5.40 [facility] Comment on above: Performed By: #### 2 367954 ####KAEDN [address] [place] [address] Hematocrit (HCT) 40.0 % Normal 36.0-48.0 [facility] Comment on above: Performed By: #### 2 294352 ####KADEN [address] [place] [address] Hemoglobin mass conc (Bld) 13.0 g/dL Normal 12.0-16.0 [facility] Comment on above: Performed By: #### 2 957985 ####KADEN [address] [place] [address] MCH 26.2 pg Low 27.0-31.0 [facility] Comment on above: Performed By: #### 2 777411 ####KADEN [address] [place] [address] MCHC mass conc (RBC) 32.4 g/dL Low 33.0-37.0 [facility] Comment on above: Performed By: #### 2 582178 ####KADEN [address] [place] [address] MCV 81.0 fL Normal 78.0-100.0 [facility] Comment on above: Performed By: #### 2 534406 ####KADEN [address] [place] [address] Platelet mean volume (PMV) 7.5 fL Normal 7.4-11.0 [facility] Comment on above: Performed By: #### 2 894508 ####KADEN [address] [place] [address] Platelets 347 E3/mcL Normal 130-400 [facility] Comment on above: Performed By: #### 2 347580 ####KADEN [address] [place] [address] WBC (Leukocytes) 8.7 E3/mcL Normal 3.6-11.0 [facility] Comment on above: Performed By: #### 2 777027 ####KADEN [address] [place] [address] CMPon 12-12-2017 Alanine aminotransferase (ALT) 14 Int._Unit/L Normal 10-40 [facility] Comment on above: Performed By: #### 2 330334 ####KADEN [address] [place] [address] Albumin 3.8 g/dL Normal 3.2-5.0 [facility] Comment on above: Performed By: #### 2 202734 ####KADEN [address] [place] [address] Albumin/Globulin Ratio 1.0 {ratio} Low 1.1-1.9 [facility] Comment on above: Performed By: #### 2 332380 ####KADEN BairdAqzJykx7952 [place] [address] Alk Phos 75 Int._Unit/L Normal 42-121 [facility] Comment on above: Performed By: #### 2 064803 ####KADEN [address] [place] [address] Aspartate aminotransferase (AST) 18 Int._Unit/L Normal 10-42 [facility] Comment on above: Performed By: #### 2 400450 ####KADEN AouDofk7613 [place] [address] Bili Total 1.0 mg/dL Normal 0.2-1.0 [facility] Comment on above: Performed By: #### 2 591556 ####KADEN [address] [place] [address] BUN/Creatinine Ratio 12.5 ratio Normal 5.4-30.0 [facility] Comment on above: Performed By: #### 2 189278 ####KADEN [address] [place] [address] Creatinine 0.8 mg/dL Normal 0.6-1.3 [facility] Comment on above: Performed By: #### 2 196379 ####KADEN [address] [place] [address] Globulin 3.8 g/dL Normal 2.0-4.0 [facility] Comment on above: Performed By: #### 2 156712 ####KADEN [address] [place] [address] Protein 7.6 g/dL Normal 6.4-8.3 [facility] Comment on above: Performed By: #### 2 816038 ####KADEN [address] [place] [address] Urea nitrogen 10 mg/dL Normal 7-18 [facility] Comment on above: Performed By: #### 2 257342 ####KADEN [address] [place] [address] Calcium 9.3 mg/dL Normal 8.4-10.2 [facility] Comment on above: Performed By: #### 2 959477 ####KADEN [address] [place] [address] Chloride 105 mmol/L Normal 98-107 [facility] Comment on above: Performed By: #### 2 493043 ####KADEN BairdJbdOnhb9731 [place] [address] CO2 25.1 mmol/L Normal 24.0-30.0 [facility] Comment on above: Performed By: #### 2 036122 ####KADEN BairdJnhTjvo2098 [place] [address] Glucose mass conc 101 mg/dL High 70-99 [facility] Comment on above: Performed By: #### 2 729727 ####KADEN [address] [place] [address] Potassium molar conc 3.4 mmol/L Low 3.5-5.1 [facility] Comment on above: Performed By: #### 2 938906 ####KADEN BccEbab7311 [place] [address] Sodium 140 mmol/L Normal 136-145 [facility] Comment on above: Performed By: #### 2 713466 ####KADEN [address] [place] [address] Lipase Levelon 12-12-2017 Lipase Lvl 30 U/L Normal 8-57 [facility] Comment on above: Performed By: #### 2 438561 ####KADEN [address] [place] [address] UA Completeon 12-12-2017 UA Blood 3+ Normal Negative [facility] Comment on above: Performed By: #### 2 555053 ####KADEN RbiMtwy2217 [place] [address] UA Bacteria Trace Abnormal None [facility] Comment on above: Performed By: #### 2 509678 ####KADEN EqwOjld3374 [place] [address] UA Clarity SltCloudy Abnormal Clear [facility] Comment on above: Performed By: #### 2 782196 ####KADEN PbeYami3923 [place] [address] UA Hyal Cast 0-2 Normal 0-2 [facility] Comment on above: Performed By: #### 2 910070 ####KADEN RcjKwtl3344 [place] [address] UA Leuk Est 3+ Abnormal Negative [facility] Comment on above: Performed By: #### 2 503918 ####KADEN HcbWghx4071 [place] [address] UA Mucous Many Abnormal Trace [facility] Comment on above: Performed By: #### 2 541082 ####KADENMorelia BairdBmkVdvv7826 [place] [address] UA Nitrite Negative Normal Negative [facility] Comment on above: Performed By: #### 2 414390 ####KADEN [address] [place] [address] UA pH 5.0 Normal 4.6-8.0 [facility] Comment on above: Performed By: #### 2 161599 ####KADEN [address] [place] [address] UA Protein 1+ Abnormal Negative [facility] Comment on above: Performed By: #### 2 764716 ####KADEN [address] [place] [address] UA Spec Grav 1.026 Normal 1.003-1.03 0 [facility] Comment on above: Performed By: #### 2 535253 ####KADEN [address] [place] [address] UA Squam Epithelial 0-5 Normal 0-5 [facility] Comment on above: Performed By: #### 2 218507 ####KADEN [address] [place] [address] UA Urobilinogen 2.0 mg/dL Abnormal [facility] Comment on above: Performed By: #### 2 496378 ####KADEN [address] [place] [address] UA WBC >50 Abnormal 0-5 [facility] Comment on above: Performed By: #### 2 603139 ####KADEN [address] [place] [address] Urine, color Yellow Normal Yellow [facility] Comment on above: Performed By: #### 2 231740 ####KADEN [address] [place] [address] Urine, erythrocytes 20-50 Abnormal 0-3 [facility] Comment on above: Performed By: #### 2 455462 ####KADEN [address] [place] [address] Urine, glucose Negative Normal Negative [facility] Comment on above: Performed By: #### 2 576251 ####KADEN NgfSzgk6202 [place] [address] Urine, ketones presence Trace Normal [facility] Comment on above: Performed By: #### 2 312972 ####KADEN [address] [place] [address] Urine, urobilinogen Negative Normal Negative [facility] Comment on above: Performed By: #### 2 924644 ####KADEN BairdSvuPevz2590 [place] [address] eGFRon 12-12-2017 eGFR AA >60 Normal [facility] Comment on above: Order Comment: Order Added by Discern Expert. Performed By: #### 2 617397 ####KADEN [address] [place] [address] eGFR (non-black) mL/min/{1.73_m2} Normal [facility] Comment on above: Order Comment: Order Added by Discern Expert. Performed By: #### 2 324379 ####KADEN [address] [place] [address] HISTORY PHYSICALon 8 HISTORY PHYSICAL HNO ID: [id number] thor: Clara Baker WolfeService: Maternal MedicineAuthor Type: PhysicianType: HANDPFiled: 12/02/2017 9:04 AMNote Text:[facility] DOCUMENTDISCHARGE SUMMARYPatient Name: Zuleika Gtz [...] 4 weeks with provider.Clara Jama, DO Normal [facility] PROGRESSon 12-02-2017 PROGRESS HNO ID: [id number] thor: Marie Lema (Res) LendeService: ObstetricsAuthor Type: [...] with more than 50% of the total tbvt-ty-atxafmxz of the visit in counseling / coordination [...] decreasing.Ambulating without difficulty.OBJECTIVE:PHYSI GEN EXAM:Heart: RR, S1, C6Zguzh: clear to auscultationAbdomen: Soft Bowel sounds present [...] December 02, 2017 : 5:45 AM Normal [facility] SOCIAL WORKon 12-02-2017 SOCIAL WORK HNO ID: [id number] thor: Meredith Jackson (Sw)oService: Social WorkAuthor Type: Social WorkerType: Social WorkFiled: 12/02/2017 12:25 PMNote Text:SOCIAL WORK CONSULT NOTESERVICE DATE: 12/02/2017SERVICE TIME: 1015Referred by: Jose for visit:Maternal/Infant - adjustment to conditionLiving Arrangement: HomeLives With: PartnerFinancial Resources: DisabledPrimary Contact:Extended Emergency Contact Information DARRELL BRANCH, IIPrima Emergency Contact: No,ContactRelation: OtherSupportive: YesOther Important Patient [...] from hospital. (FOBparents are Anamika Munoz of [address] [place] [address] , [facility]).Per pt and FOB, all needed baby supplies and equipment are at the [facility] and a nursery has been set up.Per pt, name of baby girl is Martha Branch.Pt states she is on SSI and WIC.Pt shares that she is in ongoing counseling at [facility] in [place] and has appointments 2 x per month.Discussed with pt and FOB signs and sx of depression; safe babysleep and discussed ways to deal with crying . Pt again states sheis going to rely on her support system.No additional issues identified at this time. Encouraged pt and FOB toutilize services through [facility]. Providedcontact information.Outcome/Recomm endations:Assistance through [facility] spent (minutes): 60SIGNATURE: CARLA Goncalves PATIENT NAME: Zuleika Hernandez: December 02, 2017 : 11:10 AM PAGER/CONTACT#: [facility] ANES INTRAOPon 12-01-2017 ANES INTRAOP HNO ID: [id number] thor: Terrance Leblanc) Richyervice: AnesthesiologyAuthor Type: Nurse AnesthetistType: Anesthesia IntraOpFiled: 12/01/2017 9:41 AMNote Text:ANALGESIA PROGRESS RECORDCATHETER REMOVAL/END OF CASESERVICE DATE: 12/01/2017REMOVAL DATE AND TIME: 11/30/2017, 1953DELIVERY DATE AND TIME: 11/30/2017 at 5:49 PMCATHETER REMOVAL:Catheter Removal: See [facility] Nursing noteSIGNATURE: Terrance Contreras APRN.CRNA PATIENT NAME: Zuleika Hernandez: December 01, 2017 : 9:40 AM PAGER/CONTACT #: [facility] ANES Keke 12-01-2017 ANES POST HNO ID: [id number] thor: Terrance Leblanc) Richyervice: AnesthesiologyAuthor Type: Nurse AnesthetistType: Anesthesia PostOpFiled: 12/01/2017 9:43 AMNote Text:POST ANESTHESIA EVALUATION NOTESERVICE DATE: 12/01/2017SERVICE TIME: 9:42 AMDOB: 1990Vitals: 12/01/1799Temp: 36.7 ?C (98.1 ?F) 36.8 ?C (98.2 ?F) 36.4 ?C (97.5 ?F) 36.4 ?C (97.5?F) 12/01/1799P: 119/55 102/61 107/57 116/72 12/01/1799/832505Qjgsx: 90 79 65 78 12/01/1799Resp: 20 16 [...] 2017 : 9:42 AM PAGER/CONTACT #: Debo [facility] PROGRESSon 12-01-2017 PROGRESS HNO ID: [id number] thor: Marie Lema (Res) LendeService: ObstetricsAuthor Type: [...] decreasing.Ambulating without difficulty.OBJECTIVE:PHYSI GEN EXAM:Heart: RR, S1, E6Dkrjz: clear to auscultationAbdomen: Soft Bowel sounds present [...] December 01, 2017 : 6:40 AM Normal [facility] ABO/Rh Confirmationon 2017 ABO group Nom (Bld) A Normal [facility] Comment on above: Performed By: #### A JESSIE #### [place] [address] RH Type Positive Normal [facility] Comment on above: Performed By: #### A JESSIE #### [place] [address] ANES PREOPon 11-30-2017 ANES PREOP HNO ID: [id number] thor: Aaron Leblanc) Kayleyvice: AnesthesiologyAuthor Type: Nurse AnesthetistType: Anesthesia PreOpFiled: 11/30/2017 [...] of Sleep Apnea: DeniesHematocritDate Value Ref Range Jxdaip8511/30/2017 32.3 (L) 34.1 - 44.9 % Final Platelet CountDate Value Ref Range Zirwyb2211/30/2017 193 182 - 369 thou/cmm Final Vitals: [id number] 540377 227272 143BP: 142/75 138/81Pulse: 75 81Resp:Temp: 36.6 ?C [...] otherwise documented in primary service progress notes: NoTk[place] voice [facility] contains updated information obtained within 48 hours ofSurgery/Procedure.SIGNAT URE: Hema Cuellar APRN.CRIMINAL COURT JUDGE PATIENT NAME: Zuleika LambATE: November 30, 2017 : 12:13 PM : 1990 Normal [facility] Auto Diffon 11-30-2017 Basophils Auto #/vol (Bld) 0.1 E3/mcL Normal 0.0-0.2 [facility] Comment on above: Order Comment: Order Added by Discern Expert. Performed By: #### 2 510010 ####KADEN BairdPcuWpbb3130 [place] [address] Basophils/100 WBC Auto (Bld) 0.9 % Normal 0.0-2.0 [facility] Comment on above: Order Comment: Order Added by Discern Expert. Performed By: #### 2 336815 ####KADEN BairdGhiNcce0184 [place] [address] Eos Absolute 0.1 E3/mcL Normal 0.0-0.7 [facility] Comment on above: Order Comment: Order Added by Discern Expert. Performed By: #### 2 776425 ####KADEN BairdFwwApvl3543 [place] [address] Eosinophils/100 leukocytes 1.0 % Normal 0.0-11.0 [facility] Comment on above: Order Comment: Order Added by Discern Expert. Performed By: #### 2 136238 ####KADEN BairdQyrRsyf1923 [place] [address] Lymphocytes 2.0 E3/mcL Normal 1.2-3.4 [facility] Comment on above: Order Comment: Order Added by Discern Expert. Performed By: #### 2 756967 ####KADEN BairdRedCddc6066 [place] [address] Lymphocytes/100 leukocytes 22.1 % Normal 20.0-55.0 [facility] Comment on above: Order Comment: Order Added by Discern Expert. Performed By: #### 2 073596 ####KADEN BairdRqmGewo7427 [place] [address] [place] Absolute 0.7 E3/mcL Normal 0.0-0.7 [facility] Comment on above: Order Comment: Order Added by Discern Expert. Performed By: #### 2 701120 ####KADEN BairdEutFwvo8154 [place] [address] Monocytes/100 leukocytes 7.5 % Normal 0.0-10.0 [facility] Comment on above: Order Comment: Order Added by Discern Expert. Performed By: #### 2 264575 ####KADEN BairdCetIagu9298 [place] [address] Neutro Absolute 6.1 E3/mcL Normal 1.4-6.5 [facility] Comment on above: Order Comment: Order Added by Discern Expert. Performed By: #### 2 875528 ####KADEN BairdTsuQefg8677 [place] [address] Neutro Auto 68.5 % Normal 37.0-75.0 [facility] Comment on above: Order Comment: Order Added by Discern Expert. Performed By: #### 2 798823 ####KADEN BairdWvaJnlm7713 [place] [address] CBC w/ Auto Diffon 8 Erythrocyte distribution width Auto Ratio (RBC) 14.3 % Normal 11.5-14.5 [facility] Comment on above: Performed By: #### 2 092060 ####KADEN BairdTrsBwoq2402 [place] [address] Erythrocytes (RBC) 4.34 E6/mcL Normal 3.90-5.40 [facility] Comment on above: Performed By: #### 2 869628 ####KADEN [address]eroo[address] [place] [address] Hematocrit (HCT) 35.1 % Low 36.0-48.0 [facility] Comment on above: Performed By: #### 2 355870 ####KADEN BairdDinOllc4683 [place] [address] Hemoglobin mass conc (Bld) 11.6 g/dL Low 12.0-16.0 [facility] Comment on above: Performed By: #### 2 793071 ####KADEN [address] [place] [address] MCH 26.6 pg Low 27.0-31.0 [facility] Comment on above: Performed By: #### 2 567627 ####KADEN BairdJlgCrfq4866 [place] [address] MCHC mass conc (RBC) 32.9 g/dL Low 33.0-37.0 [facility] Comment on above: Performed By: #### 2 339312 ####KADEN [address] [place] [address] MCV 80.9 fL Normal 78.0-100.0 [facility] Comment on above: Performed By: #### 2 742658 ####KADEN BairdRcbVhth7413 [place] [address] Platelet mean volume (PMV) 7.6 fL Normal 7.4-11.0 [facility] Comment on above: Performed By: #### 2 987642 ####KADEN BairdAbvKhwp7432 [place] [address] Platelets 217 E3/mcL Normal 130-400 [facility] Comment on above: Performed By: #### 2 652286 ####KADEN BairdLdhLytg5369 [place] [address] WBC (Leukocytes) 8.8 E3/mcL Normal 3.6-11.0 [facility] Comment on above: Performed By: #### 2 410534 ####KADEN GraAfbz1365 [place] [address] CONSULTon 11-30-2017 CONSULT HNO ID: [id number] thor: Marie Leam (Res) LendeService: ObstetricsAuthor Type: ResidentType: ConsultsFiled: 11/30/2017 [...] T0 L0 SAB1 TAB0 Ectopic0 Multiple0 Live Wqksrs3Nbgg of Baby 1: Not recorded Date: 2014 [...] pupils equal, no thyromegalyLungs: clearHeart: RR, S1, V8Ersybgv: soft, nontender, no massesUterus: soft, NTExtremities: 1+ [...] Epi prn4. [place]5. [place] [address]. anomalies- prominent cisterna magna, bilateral periventrcularnodular heterotopia, [...] EF 55%.10. H/o maternal clubfoot-s/p repair as uwjbdc39. H/o tobacco abuseSigned out to [facility] for deliveryDr. Amado reviewed with Dr. MaldonadoSIGNATURE: Marie Hassan DO PATIENT NAME: Zuleika LambATE: November 30, 2017 : 6:49 AM PAGER/CONTACT #: [phone] Normal [facility] HISTORY PHYSICALon HISTORY PHYSICAL HNO ID: [id number] thor: Marie Lema (Res) JabiereService: ObstetricsAuthor Type: [...] T0 L0 SAB1 TAB0 Ectopic0 Multiple0 Live Gzpgdt0Ikon of Baby 1: Not recorded Date: 2014 [...] pupils equal, no thyromegalyLungs: clearHeart: RR, S1, Q5Mucmiwf: soft, nontender, no massesUterus: soft, NTExtremities: 1+ [...] Epi prn4. FB soon5. [place] [address]. anomalies- prominent cisterna magna, bilateral periventrcularnodular heterotopia, [...] EF 55%.10. H/o maternal clubfoot-s/p repair as umqeyz80. H/o tobacco abuseSigned out to [facility] for deliveryD/w Dr. AmadoSIGNATURE: Marie Hassan DO PATIENT NAME: Zuleika LambATE: November 30, 2017 : 6:49 AM PAGER/CONTACT #: [phone] Normal [facility] Hemogramon 11-30-2017 Erythrocyte distribution width Ratio (RBC) 13.6 % Normal 11.7-14.4 [facility] Comment on above: Performed By: #### C BC1 #### [facility] [address] [place] [address] Hematocrit Volume Fraction (Bld) 32.3 % Low 34.1-44.9 [facility] Comment on above: Performed By: #### C BC1 #### [facility] [address] [place] [address] Hemoglobin mass conc (Bld) 10.4 g/dL Low 11.2-15.7 [facility] Comment on above: Performed By: #### C BC1 #### [facility] [address] [place] [address] MCH Entitic mass (RBC) 26.4 pg Normal 25.6-32.2 [facility] Comment on above: Performed By: #### C BC1 #### [facility] [address] [place] [address] MCHC mass conc (RBC) 32.2 % Normal 31.6-34.8 [facility] Comment on above: Performed By: #### C BC1 #### [facility] [address] [place] [address] MCV Entitic volume (RBC) 82.0 fL Normal 79.4-94.8 [facility] Comment on above: Performed By: #### C BC1 #### [facility] [address] [place] [id number] Platelet mean volume Entitic volume (Bld) 9.9 fL Normal 9.4-12.3 [facility] Comment on above: Performed By: #### C BC1 #### [facility] [address] [place] [id number] Platelets #/vol (Bld) 193 thou/cmm Normal 182-369 A [facility] Comment on above: Performed By: #### C BC1 #### [facility] [address] [place] [address] RBC #/vol (Bld) 3.94 mil/cmm Normal 3.93-5.22 [facility] Comment on above: Performed By: #### C BC1 #### [facility] [address] [place] [address] RDW SD 40.6 fl Normal 36.4-46.3 [facility] Comment on above: Performed By: #### C BC1 #### [facility] [address] [place] [address] WBC #/vol (Bld) 9.85 thou/cmm Normal 3.98-10.04 [facility] Comment on above: Performed By: #### C BC1 #### [facility] [address] [place] [address] LD NOTEon 11-30-2017 LD NOTE HNO ID: [id number] thor: Marie Lema (Res) LendeService: ObstetricsAuthor Type: ResidentType: LANDD Delivery NoteFiled: 11/30/2017 6:19 PMNote Text: -------Attestation signed by Serenity Maldonado MD at 12/01/2017 6:04 PMI saw and evaluated the patient. I reviewed the resident's note and agree,except that patient seen by [facility] (patient has FAS, fetus with multipleanomlaies) service, consult placed to [facility] for management of labor AND delivery.Liset primsathish [...] SUMMARY - VAGINAL DELIVERYGestational Age at Delivery: 09d1mXcfctfd Date: 11/30/2017Service Time: 1799Keegatunde Zuleika Dillard [[id number]]Labor EventsRupture Date: 11/30/17Rupture Time: 224Rupture Type: PROMFluid [...] IntactAnesthesia:Method: EpiduralMeasurements, Apgars:Brice Triplett Called: YesType of Code Uziel Team Needed: PlannedA digital sweep of the [...] November 30, 2017 : 6:15 PM Normal [facility] NURSING PROGon 11-30-2017 NURSING PROG HNO ID: [id number] thor: Marguerite (Rn) ANEUDY Albarranervice: (none)Author Type: Registered NurseType: Nursing Progress NoteFiled: 11/30/2017 7:06 PMNote Text: INTRODUCED SELF TO PATIENT AND SUPPORT PERSONS. PLAN OF CARE DISCUSSED.ASSESSMENT PERFORMED. PATIENT DENIES COMPLAINTS. Normal [facility] NURSING PROG HNO ID: [id number] thor: Darcie (Karri) ANEUDY Landeroservice: NursingAuthor Type: Registered NurseType: Nursing Progress NoteFiled: 11/30/2017 10:03 AMNote Text:Patient up to shower for comfort. Boyfriend at side. On telemetrymonitors. RN remains in room. FHR difficult to maintain continuoustracing Normal [facility] NURSING PROG HNO ID: [id number] Author: Norah (Rn) KARRI Eastman Service: Nursing Author Type: Registered Nurse Type: Nursing Progress Note Filed: 11/30/2017 7:18 AM Note Text: Report given to Darcie DURAN and care transferred at this time. Normal [facility] PROCEDUREon 11-30-2017 PROCEDURE HNO ID: [id number] thor: Aaron (Chiara) PoloService: AnesthesiologyAuthor Type: Nurse [...] Catheter in Epidural Space: 5 cmInterspace: approximately L2-P6Ekowun of Attempts: 1Wet Tap Complication: NoDural Puncture [...] nurses' documentation for additional vitals.SIGNATURE: Hema Cuellar APRN.CRIMINAL COURT JUDGE PATIENT NAME: Zuleika BecerrilnDATE: November 30, 2017 : 12:27 PM PAGER/CONTACT #: [facility] PROGRESSon 11-30-2017 PROGRESS HNO ID: [id number] thor: Marie Lema (Joaquín) JabiereService: ObstetricsAuthor Type: ResidentType: Progress NotesFiled: 11/30/2017 5:04 PMNote Text:UpdatePatient is pushing in the OR. Cat I FHRT with baseline around 160s. updated and in house.Franki Neri 2017 5:04 PM [facility] PROGRESS HNO ID: [id number] Author: Darcie Washington) Tigre RN Service: Nursing Author Type: Registered Nurse Type: Progress Notes Filed: 11/30/2017 3:29 PM Note Text: Patient feeling pressure, cervical exam 9.5 cm. NICU notified. Patient feels warm, but temp 36.9. Normal [facility] PROGRESS HNO ID: [id number] thor: Marie Lema (Res) LendeService: ObstetricsAuthor Type: [...] pt comfortable4. s/p FB5. [place] [address]. anomalies- prominent cisterna magna, bilateral periventrcularnodular heterotopia, [...] : 1:35 PM PAGER/CONTACT #: [phone] Normal [facility] PROGRESS HNO ID: [id number] thor: Yolanda (Res) SnyderService: ObstetricsAuthor Type: ResidentType: [...] pt comfortable4. s/p FB5. [place] [address]. anomalies- prominent cisterna magna, bilateral periventrcularnodular heterotopia, [...] EF 55%.10. H/o maternal clubfoot-s/p repair as gazlzz32. H/o tobacco abuseSIGNATURE: Yolanda Barbosa DO PATIENT NAME: Zuleika BecerrilnDATE: November 30, 2017 : 1:11 PM PAGER/CONTACT #: [phone] Normal [facility] PROGRESS HNO ID: [id number] thor: Yolanda (Giovanni Almonteervice: ObstetricsAuthor Type: ResidentType: Progress NotesFiled: 11/30/2017 [...] Time: 224 (11/30/17 0853 : Darcie Washington) KARRI Landeros)Amniotic Fluid Color: Clear (11/30/17 0853 : Darcie Washington) KARRI [place])Additional Findings: NoneFETAL MONITORINGFHT: 145/mod/+accels/neg decelsToco: 2-4 minutesCategory: ILABSDiagnostic tests reviewed for today's visit: No new labsAssessment/Plan27 year old EGA:39w0d. Admitted for augmentation of labor forPROM?1. GBS-2. Pit per protocol3. [place] [address]. s[place] [address]. anomalies- prominent cisterna magna, bilateral periventrcularnodular heterotopia, [...] 30, 2017 : 11:05 AM PAGER/CONTACT #: [phone] [facility] PROGRESS HNO ID: [id number] Author: Darcie Washington) Tigre RN Service: Nursing Author Type: Registered Nurse Type: Progress Notes Filed: 11/30/2017 10:35 AM Note Text: Unable to find labwork for chart. Normal [facility] PROGRESS HNO ID: [id number] thor: Marie Lema (Res) JabiereService: ObstetricsAuthor Type: ResidentType: Progress NotesFiled: 11/30/2017 10:33 AMNote Text:OBSTETRICSINTRAPARTUM PROGRESS NOTESERVICE DATE: November 30, 2017SERVICE TIME: 10:31 AMSubjectivePatient with no complaints.ObjectiveLAST VITALS:Pulse BP Resp O2 Sat Temp Pain 75 142/75 18 100 % 36.6 ?C (97.9 ?F) 810PHYSICAL EXAM:CERVICAL EXAM:Last Exam Notes: Dilation: 1 (11/30/17 0648 : Marie Lema (Res) [place])Effacement (%): 60 (11/30/1748 : Marie Lema (Res) [place])Station: -2 (11/30/1748 : Marie Lema (Res) Lenddevonte)Presentation: (not recorded)MEMBRANES:Status: Membrane Status: Premature [...] Pit per protocol3. [place] [address]. [place] [address]. anomalies- prominent cisterna magna, bilateral periventrcularnodular heterotopia, [...] EF 55%.10. H/o maternal clubfoot-s/p repair as jwuhaj74. H/o tobacco abuse?SIGNATURE: Marie Hassan DO PATIENT NAME: Zuleika LambATE: November 30, 2017 : 10:31 AM PAGER/CONTACT #: [phone] Normal [facility] PROGRESS HNO ID: [id number] thor: Darcie (Rn) Tigre RNService: NursingAuthor Type: Registered NurseType: Progress NotesFiled: 11/30/2017 10:13 AMNote Text:Patient remains in shower. RN and boyfriend at side. EFM on telemetryand adjusted while patient in shower. Difficult to keep baby on. Normal [facility] PROGRESS HNO ID: [id number] thor: Yolanda (Res) SnyderService: ObstetricsAuthor Type: ResidentType: Progress NotesFiled: 11/30/2017 7:35 AMNote Text:In to place FB. Pt tolerated procedure well. Continues to leak clearfluid. Pt uncomfortable with contractions.Cat I FHT, reactive with accelsToco: 2-5 minsHeather Romina, PGY-1Obstetrics and GynecologyPager [phone]/7:34 AM [facility] Type and Screenon 11-30-2017 ABO group Nom (Bld) A Normal [facility] Comment on above: Performed By: #### T &S #### [place] [address] Comment See Below [facility] Comment on above: Result Comment: Scre en &/or Xmatch expires in 3 days at 12 midnight. Redraw patient at that time. Performed By: #### T &S #### [place] [address] RH Type Positive Normal [facility] Comment on above: Performed By: #### T &S #### [facility] [address] [place], [place] [address] Progress Noteon 11-28-2017 Client Technical Professional Authentication Interface Message Text Routine VisitSubjective: Zuleika Villalta is being seen today for her obstetrical visit. She is at [id number]. Patient reports no complaints. Movement: normal. She [...] Serial growth ultrasounds every 4 weeks.DELIVERY PLANHospital: [facility] HospitalInduction at 39 weeks; CYTOTEC IOL 18 at 5 pm at [facility]. Pre-Procedure formdone (CG)GBS culture: neg 11/07/17Contraception: [...] was spent counseling and coordinating care. Normal [facility] Progress Noteon 11-22-2017 Client Technical Professional Authentication Interface Message Text FTC plan of care faxed to [facility] in event pt would arrive for urgent management. Normal [facility] Progress Noteon 11-21-2017 Client Technical Professional Authentication Interface Message Text Routine VisitSubjective: Zuleika Villalta is being seen today for her obstetrical visit. She is at [id number]. Patient reports that she went to [facility] last night due toconcerns [...] Serial growth ultrasounds every 4 weeks.DELIVERY PLANHospital: [facility] HospitalInduction at 39 weeks; CYTOTEC IOL 12-02-17 at 5 pm at [facility]. Pre-Procedure formdone (CG)GBS culture: neg 11/07/17Contraception: [...] IVC/SVC S/P echo [facility] POC reviewedFollow up in one week for OB visit and BPP. The patient is scheduled for IOL on12/02/17.Oksana amado MD Normal [facility] Progress Noteon 11-12-2017 Client Technical Professional Authentication Interface Message Text Call from [facility] that pt presented there in labor. [facility] plan of care and ACOGs faxed by Toan Chen. Provided after hours MFM number provided. Normal [facility] Group B Strep Cultureon 10-16 Group B Strep Culture Group B Strep Cult ure: No Group B Streptococci isolated. Source: VAG Collected: 11/07/17 09:00 Site: Vaginal/Rectal Received : 11/07/17 22:01Group B Strep Culture FINAL 11/10/17 08:34 No Group B Streptococci isolated. Normal [facility] Comment on above: Performed By: #### G RBSC ####[facility] of [address] [phone] Progress Noteon 11-07-2017 Client Technical Professional Authentication Interface Message Text Routine VisitSubjective: Zuleika Villalta is being seen today for her obstetrical visit. She is at [id number]. Patient reports occasional nausea. No emesis. She [...] [facility] Supervision of other high risk , antepartum 10/08/2017 PLAN OF CAREMD/OB APPOINTMENTSHow often should patient be evaluated? q 2 weeks from 32 to 36 weeks thenweekly until deliveryWork restrictions: noneFETAL EVALUATIONAntenatal surveillance: weekly BPPs starting at 32 weeks.Ultrasound: Serial growth ultrasounds every 4 weeks.DELIVERY PLANHospital: [facility] HospitalInduction at 39 weeksGBS culture: collected [...] OB visit and BPP.Oksana Amado MD Normal [facility] Progress Noteon 10-24-2017 Client Technical Professional Authentication Interface Message Text Routine VisitSubjective: Zuleika [...] exam this visit US: Biophysical profile is 01/22. Normal amniotic fluid volume. An umbilical veinvarix [...] Serial growth ultrasounds every 4 weeks.DELIVERY PLANHospital: [facility] HospitalInduction at 39 weeksGBS culture:Contraception: Considering [...] IVC/SVC S/P [facility] POC reviewedFollow up 2 weeks.The total patient time of the visit was 15 minutes, of which greater than 50% ofthe time was spent counseling and coordinating care.Marco Antonio Antonio DO Normal [facility] Progress Noteon 10-15-2017 Client Technical Professional Authentication Interface Message Text Ped selection made. Updated prenatals Normal [facility] Progress Noteon 10-08-2017 Client Technical Professional Authentication Interface Message Text Thank you for [...] size. There was a patent foramen ovale, rzxvrkemy-hv-natw shunt.Tricuspid valve:Normal tricuspid valve. There was normal [...] fetuses and in fetuses with CHD and ttqvrupfwksxc22y67, the ratio being below 0.3 )Impression and recommendations.1) Abnormal 3-vessel view, ascending aorta was moderately dilated. 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 thymic thoracic ratio (TT-ratio)=0.1 ( TT-ratio 0.44 in normal fetuses and in fetuses with CHD and yodgborpkmwpd20v85, the ratio being below 0.3 )5) Normal [...] earlier ifcardiac condition/status changes in any way. [place] follow up and treatmentshould be determined on the basis of the findings on the initial echocardiogram.Counseling and/or coordination of care was greater than 35 minutes which is morethan 50% of the total time of 60 minutes spent on the encounter. Normal [facility] Client Technical Professional Authentication Interface Message Text Initial VisitSubjective: Zuleika [...] Serial growth ultrasounds every 4 weeks.DELIVERY PLANHospital: [facility] HospitalInduction at 39 weeksGBS culture:Contraception:TDAP recommended [...] weeks for OB visit and BPP in [place].Oksana Amado MD Normal [facility] Cytogenomic Microarray Nivia sis of Bloodon 09-10-2017 Cytogenomic Microarray Analysis of Blood SEE BELOW Normal [facility] Comment on above: Result Comment: SPEC IMEN: BLOODCLINICAL INFORMATION: Learning disability[F81.9]TEST: CYTOGENOMIC MICROARRAY ANALYSISRESULT SUMMARY:Normal femaleNOMENCLATURE:arr(1-22,X)j2YMCDACOZCYKKLD & COMMENTS:The cytogenomics microarray analysis indicated no [...] whole genome microarray analysis was performed the FDA-clearedPretty in my Pocket (PRIMP)(RATG Access Dx platform, which contains approximately 2.7million markers, including 1,953,246 unique non-polymorphic copy numberprobes and 743,304 single nucleotide polymorphism (SNP) probes. Thegenome-wide functional resolution of this assay is approximately 25 kbfor deletions and 50 kb for duplications. This microarray andassociated software (Chromosome Analysis Suite Dx) were manufactured [employer] and used by the [facility]ogenetics and Molecular DiagnosticsLaboratories of [facility] for the purpose ofidentifying DNA copy [...] further information regarding intendeduse and limitations, see [email or web address].Note: The Cytogenetics Laboratory has this patient's blood [...] for additional testing. 09/19/2017 BIGG GARCIA, PH.D., [facility], [facility] 09/19/2017 Performed By: #### M [facility] ####[facility] of [address] [phone] MRI (SINGLE)on 018 MRI (SINGLE) MRI (SINGLE)CL [...] Dr. AJ CAMILO at 09/10/2017 10:21 Normal [facility] Progress Noteon 09-10-2017 Client Technical Professional Authentication Interface Message Text The total patient time of the visit was 15 minutes, of which greater than 50% of the time was spent counseling and coordinating care. Normal [facility] Auto Diffon 09-03-2017 Basophils Auto #/vol (Bld) 0.1 E3/mcL Normal 0.0-0.2 [facility] Comment on above: Order Comment: Order Added by Discern Expert. Performed By: #### 2 [id number] ####KADEN [address] [place] [address] Basophils/100 WBC Auto (Bld) 0.5 % Normal 0.0-2.0 [facility] Comment on above: Order Comment: Order Added by Discern Expert. Performed By: #### 2 [id number] ####KADEN [address] [place] [address] Eos Absolute 0.0 E3/mcL Normal 0.0-0.7 [facility] Comment on above: Order Comment: Order Added by Discern Expert. Performed By: #### 2 461356 ####KADEN [address] [place] [address] Eosinophils/100 leukocytes 0.4 % Normal 0.0-11.0 [facility] Comment on above: Order Comment: Order Added by Discern Expert. Performed By: #### 2 970533 ####KADEN [address] [place] [address] Lymphocytes 1.3 E3/mcL Normal 1.2-3.4 [facility] Comment on above: Order Comment: Order Added by Discern Expert. Performed By: #### 2 779826 ####KADEN [address] [place] [address] Lymphocytes/100 leukocytes 13.1 % Low 20.0-55.0 [facility] Comment on above: Order Comment: Order Added by Discern Expert. Performed By: #### 2 372369 ####KADEN [address] [place] [address] [place] Absolute 0.4 E3/mcL Normal 0.0-0.7 [facility] Comment on above: Order Comment: Order Added by Discern Expert. Performed By: #### 2 403205 ####KADEN [address] [place] [address] Monocytes/100 leukocytes 4.3 % Normal 0.0-10.0 [facility] Comment on above: Order Comment: Order Added by Discern Expert. Performed By: #### 2 503595 ####KADEN [address] [place] [address] Neutro Absolute 8.4 E3/mcL High 1.4-6.5 [facility] Comment on above: Order Comment: Order Added by Discern Expert. Performed By: #### 2 410869 ####KADEN [address] [place] [address] Neutro Auto 81.7 % High 37.0-75.0 [facility] Comment on above: Order Comment: Order Added by Discern Expert. Performed By: #### 2 045244 ####KADEN [address] [place] [address] CBC w/ Auto Diffon 8 Erythrocyte distribution width Auto Ratio (RBC) 13.1 % Normal 11.5-14.5 [facility] Comment on above: Performed By: #### 2 369200 ####KADEN [address] [place] [address] Erythrocytes (RBC) 3.90 E6/mcL Normal 3.90-5.40 [facility] Comment on above: Performed By: #### 2 126047 ####KADEN [address] [place] [address] Hematocrit (HCT) 34.7 % Low 36.0-48.0 [facility] Comment on above: Performed By: #### 2 359433 ####K[address] [place] [address] Hemoglobin mass conc (Bld) 11.8 g/dL Low 12.0-16.0 [facility] Comment on above: Performed By: #### 2 712828 ####KADEN [address] [place] [address] MCH 30.3 pg Normal 27.0-31.0 [facility] Comment on above: Performed By: #### 2 716052 ####KADEN [address] [place] [address] MCHC mass conc (RBC) 34.2 g/dL Normal 33.0-37.0 [facility] Comment on above: Performed By: #### 2 953503 ####KADEN [address] [place] [address] MCV 88.8 fL Normal 78.0-100.0 [facility] Comment on above: Performed By: #### 2 298028 ####KADEN [address] [place] [address] Platelet mean volume (PMV) 7.3 fL Low 7.4-11.0 [facility] Comment on above: Performed By: #### 2 900507 ####[address] [place] [address] Platelets 218 E3/mcL Normal 130-400 [facility] Comment on above: Performed By: #### 2 284211 ####K[address] [place] [address] WBC (Leukocytes) 10.2 E3/mcL Normal 3.6-11.0 [facility] Comment on above: Performed By: #### 2 008092 ####K[address] [place] [address] Gest Scr Glu 1 Hron 09-04-19 18 Glucose mass conc 113 mg/dL Normal 70-140 [facility] Comment on above: Performed By: #### 2 468799 ####[address] [place] [address] FISH Probeon 08-13-2017 Protein mass conc SEE BELOW Normal [facility] Comment on above: Result Comment: SPEC IMEN: BLOOD - [id number] INFORMATION:TEST: FISH Analysis of the Di[place]/VCFS Region [...] Metaphase images: 2The Vysis LSI DARREN Spectrum Kirby Probe contains the DARREN gene (3'non-coding region of TUPLE1, [id number], and [id number]. The Vysis LSI ARSAspectrum Green Probe includes [...] performance characteristics determinedby the Cytogenetics Laboratory of [facility]. It hasnot been cleared or approved by the U.S. Food and Drug Administration.The FDA has determined that such clearance or approval is notnecessary. This test is used for clinical purposes. It should not beregarded as investigational or for research. This laboratory iscertified under the Clinical Laboratory Improvement Amendments of 1988(CLIA-88) as qualified to perform high complexity clinical laboratorytesting.REFERENCE: Rhonda RIVERA, Bindu E, Kristin M, Cj RV. Fluorescence in situhybridization detection of chromosome 22q11.2 microdeletions invelocardiofacial syndrome patients with widely variable manifestations. Am J Med Barbara 66:250-256,1996. BIGG GARCIA, PH.D., [facility], [facility] 08/16/2017 Performed By: #### F MARIA ####[facility] of [facility] [address] [place], [place] [phone] Progress Noteon 08-13-2017 Client Technical Professional Authentication Interface Message Text Met with patient [...] understanding of findingsWork History: unemployed. Information on [facility] services given.Consent to share information with [facility] team, OB and electrotype molder signed. 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. Currently with Dr. Shekhar Dyson.Continuous Mining Operator is undecided. [facility] list provided and discussed importance ofselection [...] was spent counseling and coordinating care. Normal [facility] Client Technical Professional Authentication Interface Message Text Thank you for [...] size. There was a patent foramen ovale, dkbceareu-km-hcko shunt.Tricuspid valve:Normal tricuspid valve. There was normal [...] 60 minutes spent on the encounter. Normal [facility] Progress Noteon 07-18-2017 Client Technical Professional Authentication Interface Message Text [facility] MATERNAL- MEDICINE CONSULTReferring/Requestin g Provider: SHELBIE Franklin: EXTERNAL PROVIDERINDICATION FOR CONSULT: maternal history of [...] no palpitations. She usually doesnot see a process coordinator, but did have a recent echo due [...] as a child 07/18/2017 Consider evaluation with certified social workers in health care to assess for any needs duringpregnancy or after. Will have genetic consult with [facility] evaluation. cardiac anomaly complicating , antepartum 07/18/2017 Dilated aortic root seen on ultrasound along with large umbilical cordvarix, dolichocephaly DW Dr. Zazueta, verbal order to refer to [facility] Will be scheduled with pediatric cardiology. Also, patient and family members have a history of learning disabilities,including an individual learning plan in school. She will talk to her familymembers and bring as much information as is available for her genetics consult.She has transportation to [place] and is willing [facility].The total patient time of the visit was 30 minutes, of which was greater than50% of the time was spent counseling and coordinating care. Normal [facility] IGP W/hpv Rfx [id number] 05-07 Diagnosis: See Ref Lab Report Normal [facility] Comment on above: Order Comment: Thin Prep. Performed By: #### 2 [id number] ####KADEN [address] [place] [address] C Urineon 05-03-2017 C Urine Final Report: Normal skin alonso isolated Normal [facility] Comment on above: Performed By: #### 2 [id number] ####KADEN [address] [place] [address] RPRon 05-03-2017 RPR Ql Non-Reactive Normal Non-Reacti ve [facility] Comment on above: Performed By: #### 2 587617 ####KADEN [address] [place] [address] Hep Bs Agon 05-02-2017 BSA (Body Surface Area) Negative Normal Negative [facility] Comment on above: Result Comment: Perf ormed At: [facility] [address] [place], [place] [id number] Vincent PhD Ph:[phone] Performed By: #### 2 409428 ####KADENMorelia [address] [place] [address] ABO/Rh Echoon 05-01-2017 ABO/Rh E Interp... Positive Normal [facility] Comment on above: Performed By: #### 2 320151 ####KADENMorelia [address]smSrxx[address] [place] [address] Antibody Screen Cap...on Screen Interp... Negative Normal [facility] Comment on above: Performed By: #### 2 033774 ####KADENMorelia [address] [place] [address] Auto Diffon 05-01-2017 Basophils Auto #/vol (Bld) 0.0 E3/mcL Normal 0.0-0.2 [facility] Comment on above: Order Comment: Order Added by Discern Expert. Performed By: #### 2 693684 ####KADEN Urinalysis Manual [address] [place] [address] Basophils/100 WBC Auto (Bld) 0.4 % Normal 0.0-2.0 [facility] Comment on above: Order Comment: Order Added by Discern Expert. Performed By: #### 2 828856 ####KADEN Urinalysis Manual [address] [place] [address] Eos Absolute 0.1 E3/mcL Normal 0.0-0.7 [facility] Comment on above: Order Comment: Order Added by Discern Expert. Performed By: #### 2 321338 ####KADEN Urinalysis Manual [address] [place] [address] Eosinophils/100 leukocytes 0.7 % Normal 0.0-11.0 [facility] Comment on above: Order Comment: Order Added by Discern Expert. Performed By: #### 2 162369 ####KADEN Urinalysis Manual [address] [place] [address] Lymphocytes 1.8 E3/mcL Normal 1.2-3.4 [facility] Comment on above: Order Comment: Order Added by Discern Expert. Performed By: #### 2 925050 ####KADEN Urinalysis Manual [address] [place] [address] Lymphocytes/100 leukocytes 17.1 % Low 20.0-55.0 [facility] Comment on above: Order Comment: Order Added by Discern Expert. Performed By: #### 2 853638 ####KADEN Urinalysis Manual [address] [place] [address] [place] Absolute 0.5 E3/mcL Normal 0.0-0.7 [facility] Comment on above: Order Comment: Order Added by Discern Expert. Performed By: #### 2 539092 ####KADEN Urinalysis Manual [address] [place] [address] Monocytes/100 leukocytes 5.0 % Normal 0.0-10.0 [facility] Comment on above: Order Comment: Order Added by Discern Expert. Performed By: #### 2 380635 ####KADEN Urinalysis Manual [address] [place] [address] Neutro Absolute 8.0 E3/mcL High 1.4-6.5 [facility] Comment on above: Order Comment: Order Added by Discern Expert. Performed By: #### 2 342441 ####KADEN Urinalysis Manual [address] [place] [address] Neutro Auto 76.8 % High 37.0-75.0 [facility] Comment on above: Order Comment: Order Added by Discern Expert. Performed By: #### 2 542158 ####KADEN Urinalysis Manual [address] [place] [address] CBC w/ Auto Diffon 7 Erythrocyte distribution width Auto Ratio (RBC) 15.2 % High 11.5-14.5 [facility] Comment on above: Performed By: #### 2 830541 ####KADEN Urinalysis Manual [address] [place] [address] Erythrocytes (RBC) 4.90 E6/mcL Normal 3.90-5.40 [facility] Comment on above: Performed By: #### 2 132816 ####KADEN Urinalysis Manual [address] [place] [address] Hematocrit (HCT) 41.1 % Normal 36.0-48.0 [facility] Comment on above: Performed By: #### 2 716889 ####KADEN Urinalysis Manual [address] [place] [address] Hemoglobin mass conc (Bld) 13.5 g/dL Normal 12.0-16.0 [facility] Comment on above: Performed By: #### 2 001662 ####KADEN Urinalysis Manual [address] [place] [address] MCH 27.5 pg Normal 27.0-31.0 [facility] Comment on above: Performed By: #### 2 912992 ####KADEN Urinalysis Manual [address] [place] [address] MCHC mass conc (RBC) 32.8 g/dL Low 33.0-37.0 [facility] Comment on above: Performed By: #### 2 699805 ####KADEN Urinalysis Manual [address] [place] [address] MCV 83.9 fL Normal 78.0-100.0 [facility] Comment on above: Performed By: #### 2 207996 ####KADEN Urinalysis Manual [address] [place] [address] Platelet mean volume (PMV) 8.0 fL Normal 7.4-11.0 [facility] Comment on above: Performed By: #### 2 851143 ####KADEN Urinalysis Manual [address] [place] [address] Platelets 246 E3/mcL Normal 130-400 [facility] Comment on above: Performed By: #### 2 280196 ####[place] [address] WBC (Leukocytes) 10.4 E3/mcL Normal 3.6-11.0 [facility] Comment on above: Performed By: #### 2 072895 ####[place] [address] Chlamydia GC by PCRon 2016 Chlamydia by PCR. Not Detected Normal Not Detected [facility] Comment on above: Result Comment: Xper t CT/NG Assay performance has not been evaluated in patients less than 14 years of age. Performed By: #### 2 599573 ####KADEN [address] [place] [address] Gonorrhoeae by PCR Not Detected Normal Not Detected [facility] Comment on above: Result Comment: Xper t CT/NG Assay performance has not been evaluated in patients less than 14 years of age. Performed By: #### 2 443326 ####KADEN [address] [place] [address] HIV-1/2 Ag/Abon 05-01-2017 HIV-1/2 Ag/Ab Non-Reactive Normal Non-Reacti ve [facility] Comment on above: Performed By: #### 2 655958 ####KADEN Urinalysis Manual [place], [place] [address] Rubella IgG Lvlon 05-01-2017 Rubella IgG Lvl 50.8 (POS) Normal [facility] Comment on above: Result Comment: <10I U/ml NON REACTIVE: NOT [id number] IU/ml RUBELLA SPECIFIC AB PRESENT, EVALUATEFURTHER TO DETERMINE IMMUNE STATUS >15 IU/ml REACTIVE, IMMUNE Performed By: #### 2 [id number] ####KADEN UatFgcn9704 [place] [address] Auto Diffon 04-22-2017 Basophils Auto #/vol (Bld) 0.1 E3/mcL Normal 0.0-0.2 [facility] Comment on above: Order Comment: Order Added by Discern Expert. Performed By: #### 2 780245 ####KADEN Urinalysis Manual [address] [place] [address] Basophils/100 WBC Auto (Bld) 0.6 % Normal 0.0-2.0 [facility] Comment on above: Order Comment: Order Added by Discern Expert. Performed By: #### 2 978089 ####KADEN Urinalysis Manual [address] [place] [address] Eos Absolute 0.0 E3/mcL Normal 0.0-0.7 [facility] Comment on above: Order Comment: Order Added by Discern Expert. Performed By: #### 2 745237 ####KADEN Urinalysis Manual [address] [place] [address] Eosinophils/100 leukocytes 0.2 % Normal 0.0-11.0 [facility] Comment on above: Order Comment: Order Added by Discern Expert. Performed By: #### 2 686580 ####KADEN Urinalysis Manual [address]rns[address] [place] [address] Lymphocytes 1.5 E3/mcL Normal 1.2-3.4 [facility] Comment on above: Order Comment: Order Added by Discern Expert. Performed By: #### 2 482173 ####KADEN Urinalysis Manual [address]xixpunt[address] [place] [address] Lymphocytes/100 leukocytes 10.8 % Low 20.0-55.0 [facility] Comment on above: Order Comment: Order Added by Discern Expert. Performed By: #### 2 194301 ####KADEN Urinalysis Manual [address]xbihfu[address] [place] [address] [place] Absolute 0.6 E3/mcL Normal 0.0-0.7 [facility] Comment on above: Order Comment: Order Added by Discern Expert. Performed By: #### 2 206835 ####KADEN Urinalysis Manual [address] [place] [address] Monocytes/100 leukocytes 4.4 % Normal 0.0-10.0 [facility] Comment on above: Order Comment: Order Added by Discern Expert. Performed By: #### 2 003728 ####KADEN Urinalysis Manual [address]hjnil[address] [place] [address] Neutro Absolute 11.3 E3/mcL High 1.4-6.5 [facility] Comment on above: Order Comment: Order Added by Discern Expert. Performed By: #### 2 728251 ####KADEN Urinalysis Manual Ktnwytf[address] [place] [address] Neutro Auto 84.0 % High 37.0-75.0 [facility] Comment on above: Order Comment: Order Added by Discern Expert. Performed By: #### 2 403714 ####KADEN Urinalysis Manual Sxahgvwwqz[address] [place] [address] BMPon 04-22-2017 BUN/Creatinine Ratio Unable to calc Normal 5.4-30.0 [facility] Comment on above: Performed By: #### 2 081798 ####KADEN Urinalysis Manual Uiyucvhxuk198[address] [place] [address] Creatinine mg/dL Low 0.6-1.3 [facility] Comment on above: Performed By: #### 2 504874 ####KADEN Urinalysis Manual Mdquazfrmx[address] [place] [address] Urea nitrogen 7 mg/dL Normal 7-18 [facility] Comment on above: Performed By: #### 2 503507 ####KADEN Urinalysis Manual Kcodzzglbe2099[address] [place] [address] Calcium 9.6 mg/dL Normal 8.4-10.2 [facility] Comment on above: Performed By: #### 2 186634 ####KADEN Urinalysis Manual Azoaqhtiro7595[address] [place] [address] Chloride 103 mmol/L Normal 98-107 [facility] Comment on above: Performed By: #### 2 891183 ####KADEN Urinalysis Manual Swkvxhitqz[address] [place] [address] CO2 21.7 mmol/L Low 24.0-30.0 [facility] Comment on above: Performed By: #### 2 836252 ####KADEN Urinalysis Manual Rkubjnafib[address] [place] [address] Glucose mass conc 89 mg/dL Normal 70-99 [facility] Comment on above: Performed By: #### 2 025784 ####KADEN Urinalysis Manual Wnwuhabect8018 [place] [address] Potassium molar conc 3.6 mmol/L Normal 3.5-5.1 [facility] Comment on above: Performed By: #### 2 585431 ####KADEN Urinalysis Manual Popxjogtfm1399[address] [place] [address] Sodium 136 mmol/L Normal 136-145 [facility] Comment on above: Performed By: #### 2 365474 ####KADEN Urinalysis Manual Vodpgaiaml[address] [place] [address] CBC w/ Auto Diffon 7 Erythrocyte distribution width Auto Ratio (RBC) 14.8 % High 11.5-14.5 [facility] Comment on above: Performed By: #### 2 812602 ####KADEN Urinalysis Manual Twpmkwidjr205[address] [place] [address] Erythrocytes (RBC) 4.96 E6/mcL Normal 3.90-5.40 [facility] Comment on above: Performed By: #### 2 029549 ####KADEN Urinalysis Manual Lmjjezhfoz454[address] [place] [address] Hematocrit (HCT) 40.9 % Normal 36.0-48.0 [facility] Comment on above: Performed By: #### 2 653705 ####KADEN Urinalysis Manual Ijoilftvhh466156 [place] [address] Hemoglobin mass conc (Bld) 13.5 g/dL Normal 12.0-16.0 [facility] Comment on above: Performed By: #### 2 426536 ####KADEN Urinalysis Manual Tmptwsoidw378[address] [place] [address] MCH 27.2 pg Normal 27.0-31.0 [facility] Comment on above: Performed By: #### 2 088026 ####KADEN Urinalysis Manual Chqyanplhs504[address] [place] [address] MCHC mass conc (RBC) 33.0 g/dL Normal 33.0-37.0 [facility] Comment on above: Performed By: #### 2 811575 ####KADEN Urinalysis Manual Vellgrlgut110[address] [place] [address] MCV 82.4 fL Normal 78.0-100.0 [facility] Comment on above: Performed By: #### 2 710383 ####KADEN Urinalysis Manual Rlstaweemm9196 [place] [address] Platelet mean volume (PMV) 8.0 fL Normal 7.4-11.0 [facility] Comment on above: Performed By: #### 2 748458 ####KADEN Urinalysis Manual Txweclxsoj4299 [place] [address] Platelets 237 E3/mcL Normal 130-400 [facility] Comment on above: Performed By: #### 2 644282 ####KADEN Urinalysis Manual Hmswpscory8[address] [place] [address] WBC (Leukocytes) 13.5 E3/mcL High 3.6-11.0 [facility] Comment on above: Performed By: #### 2 932601 ####KADEN Urinalysis Manual Aitkrrnixv6314[address] [place] [address] UA Completeon 04-22-2017 UA Blood Negative Normal Negative [facility] Comment on above: Performed By: #### 2 255188 ####KADEN Urinalysis Manual Mutdcvjvxg499056 [place] [address] UA Ascorbic Acid 40 mg/dL High <=19 [facility] Comment on above: Performed By: #### 2 685007 ####KADEN Urinalysis Manual Unywczenmp400[address] [place] [address] UA Bacteria 3+ /HPF Abnormal None [facility] Comment on above: Performed By: #### 2 828755 ####KADEN Urinalysis Manual Giudpcetdj779[address] [place] [address] UA Clarity SltCloudy Abnormal Clear [facility] Comment on above: Performed By: #### 2 924248 ####KADEN Urinalysis Manual Phctjulxod399[address] [place], [place] [address] UA Leuk Est Negative Normal Negative [facility] Comment on above: Performed By: #### 2 040283 ####KADEN Urinalysis Manual Imhrptofea157[address] [place] [address] UA Mucous Few Abnormal Trace [facility] Comment on above: Performed By: #### 2 042243 ####KADEN Urinalysis Manual Jskehdjdzc2820 [place] [address] UA Nitrite Negative Normal Negative [facility] Comment on above: Performed By: #### 2 183004 ####KADEN Urinalysis Manual Qbovaonjqq88[address] [place] [address] UA pH 8.0 Normal 4.6-8.0 [facility] Comment on above: Performed By: #### 2 540160 ####KADEN Urinalysis Manual Locrptvhnv865[address] [place] [address] UA Protein Negative Normal Negative [facility] Comment on above: Performed By: #### 2 800637 ####KADEN Urinalysis Manual Bdzsblpnzx245356 [place] [address] UA Spec Grav 1.012 Normal 1.003-1.03 0 [facility] Comment on above: Performed By: #### 2 074736 ####KADEN Urinalysis Manual Iurcdkeixm5628[address] [place] [address] UA Squam Epithelial 0-5 Normal 0-5 [facility] Comment on above: Performed By: #### 2 709350 ####KADEN Urinalysis Manual Csfdptpupv607[address] [place] [address] UA Urobilinogen Negative Normal [facility] Comment on above: Performed By: #### 2 465323 ####KADEN Urinalysis Manual Dijlfosjjr385[address] [place] [address] UA WBC 0-5 Normal 0-5 [facility] Comment on above: Performed By: #### 2 316933 ####KADEN Urinalysis Manual Parnaluggw925[address] [place] [address] Urine, color Yellow Normal Yellow [facility] Comment on above: Performed By: #### 2 364019 ####KADEN Urinalysis Manual Jbazehlytf5060[address] [place] [address] Urine, glucose Negative Normal Negative [facility] Comment on above: Performed By: #### 2 573124 ####KADEN Urinalysis Manual Euhncvvxji9312[address] [place] [address] Urine, ketones presence 1+ Abnormal Negative [facility] Comment on above: Performed By: #### 2 557721 ####KADEN Urinalysis Manual Nrnekgdkfv8878 [place] [address] Urine, urobilinogen Negative Normal Negative [facility] Comment on above: Performed By: #### 2 360106 ####KADEN Urinalysis Manual Yfcjulbznu5908 [place] [address] eGFRon 04-22-2017 eGFR AA >60 Normal [facility] Comment on above: Order Comment: Order added by Discern Expert. Performed By: #### 2 597407 ####KADEN Urinalysis Manual Dggftzgitp7487 [place] [address] eGFR (non-black) mL/min/{1.73_m2} Normal [facility] Comment on above: Order Comment: Order added by Discern Expert. Performed By: #### 2 703276 ####KADEN Urinalysis Manual Lncrvcjitw1983 [place] [address] C Urineon 04-20-2017 C Urine Final Report: Normal skin alonso isolated Normal [facility] Comment on above: Performed By: #### 2 880312 ####KADEN Urinalysis Manual Ubvvmoxeji4277 [place] [address] BMPon 04-18-2017 BUN/Creatinine Ratio 15.0 ratio Normal 5.4-30.0 [facility] Comment on above: Performed By: #### 2 023780 ####KADEN CrlYodq5027 [place] [address] Creatinine 0.6 mg/dL Normal 0.6-1.3 [facility] Comment on above: Performed By: #### 2 157331 ####KADEN HgrPaum3794 [place] [address] Urea nitrogen 9 mg/dL Normal 7-18 [facility] Comment on above: Performed By: #### 2 286627 ####KADEN YghUtfe1373 [place] [address] Calcium 9.6 mg/dL Normal 8.4-10.2 [facility] Comment on above: Performed By: #### 2 007223 ####KADEN MaxIfpa2916 [place] [address] Chloride 102 mmol/L Normal 98-107 [facility] Comment on above: Performed By: #### 2 505376 ####KADEN VioOtdf0892 [place] [address] CO2 23.3 mmol/L Low 24.0-30.0 [facility] Comment on above: Performed By: #### 2 314106 ####KADENMorelia BairdFdzRpcd8387 [place] [address] Glucose mass conc 93 mg/dL Normal 70-99 [facility] Comment on above: Performed By: #### 2 839046 ####KADEN LvzFowi9536 [place] [address] Potassium molar conc 3.5 mmol/L Normal 3.5-5.1 [facility] Comment on above: Performed By: #### 2 365206 ####KADENMorelia BairdHrwOfnr6226 [place] [address] Sodium 136 mmol/L Normal 136-145 [facility] Comment on above: Performed By: #### 2 550791 ####KADEN NnfHnwu2177 [place] [address] UA Completeon 04-18-2017 UA Blood Negative Normal Negative [facility] Comment on above: Performed By: #### 2 998460 ####KADEN Urinalysis Manual Vgkjzdmzde2094 [place] [address] UA Amorph Chastity 2+ /HPF Abnormal None [facility] Comment on above: Performed By: #### 2 369129 ####KADEN Urinalysis Manual Jhjgmakrhz3896 [place] [address] UA Ascorbic Acid 40 mg/dL High <=19 [facility] Comment on above: Performed By: #### 2 097013 ####KADEN Urinalysis Manual Btjblmezwg7023 [place] [address] UA Clarity Cloudy Abnormal Clear [facility] Comment on above: Performed By: #### 2 634908 ####KADEN Urinalysis Manual Tmfswgfcyu8877 [place] [address] UA Leuk Est Negative Normal Negative [facility] Comment on above: Performed By: #### 2 870676 ####KADEN Urinalysis Manual Lptcnxuzez4294 [place] [address] UA Mucous Trace Abnormal Trace [facility] Comment on above: Performed By: #### 2 306558 ####KADEN Urinalysis Manual R[address]pxliqfp[address] [place] [address] UA Nitrite Negative Normal Negative [facility] Comment on above: Performed By: #### 2 859739 ####KADEN Urinalysis Manual Faezvptmti589[address] [place] [address] UA pH 7.0 Normal 4.6-8.0 [facility] Comment on above: Performed By: #### 2 099659 ####KADEN Urinalysis Manual Hvlwouqreh43[address] [place] [address] UA Protein Negative Normal Negative [facility] Comment on above: Performed By: #### 2 946989 ####KADEN Urinalysis Manual Gphxoiycvv[address] [place] [address] UA Spec Grav 1.018 Normal 1.003-1.03 0 [facility] Comment on above: Performed By: #### 2 750199 ####KADEN Urinalysis Manual Daagpthqyf155[address] [place] [address] UA Squam Epithelial 0-5 Normal 0-5 [facility] Comment on above: Performed By: #### 2 672172 ####KADEN Urinalysis Manual Tpqiomjlwe9[address] [place] [address] UA Urobilinogen Negative Normal [facility] Comment on above: Performed By: #### 2 856305 ####KADEN Urinalysis Manual Naptwmzypt5764[address] [place] [address] Urine, color Yellow Normal Yellow [facility] Comment on above: Performed By: #### 2 660531 ####KADEN Urinalysis Manual Yimojukssv377[address] [place] [address] Urine, glucose Negative Normal Negative [facility] Comment on above: Performed By: #### 2 485030 ####KADEN Urinalysis Manual Hwuckvteqv[address] [place] [address] Urine, ketones presence 2+ Abnormal Negative [facility] Comment on above: Performed By: #### 2 203346 ####KADEN Urinalysis Manual Erjikavmvz1838 [place] [address] Urine, urobilinogen Negative Normal Negative [facility] Comment on above: Performed By: #### 2 870532 ####KADEN Urinalysis Manual Sinqqnjylk1876 [place] [address] eGFRon 04-18-2017 eGFR (non-black) mL/min/{1.73_m2} Normal [facility] Comment on above: Order Comment: Order added by Discern Expert. Performed By: #### 1 7154227 ####KADEN JshNyam8573 [place] 8430505 eGFR AA >60 Normal [facility] Comment on above: Order Comment: Order added by Discern Expert. Performed By: #### 1 2330228 ####KADEN ThcLffn1419 [place] [address] Auto Diffon 04-11-2017 Basophils Auto #/vol (Bld) 0.1 E3/mcL Normal 0.0-0.2 [facility] Comment on above: Order Comment: Order Added by Discern Expert. Performed By: #### 2 194961 ####KADENMorelia BairdAacBmvd7547 [place] [address] Basophils/100 WBC Auto (Bld) 0.7 % Normal 0.0-2.0 [facility] Comment on above: Order Comment: Order Added by Discern Expert. Performed By: #### 2 940841 ####KADEN LzzNnyw7294 [place] [address] Eos Absolute 0.0 E3/mcL Normal 0.0-0.7 [facility] Comment on above: Order Comment: Order Added by Discern Expert. Performed By: #### 2 128451 ####KADEN LnxJwzw5432 [place] [address] Eosinophils/100 leukocytes 0.1 % Normal 0.0-11.0 [facility] Comment on above: Order Comment: Order Added by Discern Expert. Performed By: #### 2 615834 ####KADENMorelia BairdCnwBets7487 [place] [address] Lymphocytes 1.5 E3/mcL Normal 1.2-3.4 [facility] Comment on above: Order Comment: Order Added by Discern Expert. Performed By: #### 2 265828 ####KADEN Luceroo1025 [place] [address] Lymphocytes/100 leukocytes 17.2 % Low 20.0-55.0 [facility] Comment on above: Order Comment: Order Added by Discern Expert. Performed By: #### 2 633997 ####KADEN [address]25 [place] [address] [place] Absolute 0.6 E3/mcL Normal 0.0-0.7 [facility] Comment on above: Order Comment: Order Added by Discern Expert. Performed By: #### 2 054460 ####KADEN [address]25 [place] [address] Monocytes/100 leukocytes 6.6 % Normal 0.0-10.0 [facility] Comment on above: Order Comment: Order Added by Discern Expert. Performed By: #### 2 652874 ####KADEN [address]25 [place] [address] Neutro Absolute 6.7 E3/mcL High 1.4-6.5 [facility] Comment on above: Order Comment: Order Added by Discern Expert. Performed By: #### 2 526338 ####KADEN [address]25 [place] [address] Neutro Auto 75.4 % High 37.0-75.0 [facility] Comment on above: Order Comment: Order Added by Discern Expert. Performed By: #### 2 401169 ####KADEN [address] [place] [address] BMPon 04-11-2017 BUN/Creatinine Ratio 12.9 ratio Normal 5.4-30.0 [facility] Comment on above: Performed By: #### 2 913930 ####KADEN JfsIinh1518 [place] [address] Creatinine 0.7 mg/dL Normal 0.6-1.3 [facility] Comment on above: Performed By: #### 2 292094 ####KADEN RxaJoqy6288 [place] [address] Urea nitrogen 9 mg/dL Normal 7-18 [facility] Comment on above: Performed By: #### 2 108164 ####KADEN ZdgGiaj2373 [place] [address] Calcium 9.5 mg/dL Normal 8.4-10.2 [facility] Comment on above: Performed By: #### 2 201591 ####KADEN OygWpji0913 [place] [address] Chloride 105 mmol/L Normal 98-107 [facility] Comment on above: Performed By: #### 2 983137 ####KADEN UriFhmn8962 [place] [address] CO2 22.5 mmol/L Low 24.0-30.0 [facility] Comment on above: Performed By: #### 2 546751 ####KADEN TwuRrbf8995 [place] [address] Glucose mass conc 92 mg/dL Normal 70-99 [facility] Comment on above: Performed By: #### 2 741855 ####KADEN FpxHisw4079 [place] [address] Potassium molar conc 3.6 mmol/L Normal 3.5-5.1 [facility] Comment on above: Performed By: #### 2 960564 ####KAEDN NlaYyis1800 [place] [address] Sodium 137 mmol/L Normal 136-145 [facility] Comment on above: Performed By: #### 2 798864 ####KADEN ZueKwtj2514 [place] [address] BhCG Quanton 04-11-2017 Beta hCG Qnt 8564.0 mIU/m Normal [facility] Comment on above: Result Comment: FEMA LE (NON-) & MALE <3 BORDERLINE 3 - 5 SUGGEST REPEAT TESTING FEMALE () 1 D - 1 WK 5 - 50 1 - 2 WK 50 - 500 2 - 3 WK 100 - 5000 3 - 4 WK 500 - 02546 4 - 5 WK 1000 - 75057 5 - 6 WK 47138 - 017767 6 - 8 WK 73[address] - 447371 2 - 3 [place] [address] - 520460 Performed By: #### 2 570486 ####KADEN UlwCxic1695 [place] [address] CBC w/ Auto Diffon 10-26-201 7 Erythrocyte distribution width Auto Ratio (RBC) 13.9 % Normal 11.5-14.5 [facility] Comment on above: Performed By: #### 2 236001 ####KADEN ElcStlf4554 [place] 8430[address] Erythrocytes (RBC) 4.63 E6/mcL Normal 3.90-5.40 [facility] Comment on above: Performed By: #### 2 600435 ####KADEN WaaLsgp4724 [place] [address] Hematocrit (HCT) 38.2 % Normal 36.0-48.0 [facility] Comment on above: Performed By: #### 2 762522 ####KADENMorelia BairdWxoEgot0277 [place] 8430[address] Hemoglobin mass conc (Bld) 12.6 g/dL Normal 12.0-16.0 [facility] Comment on above: Performed By: #### 2 084052 ####KADENMorelia BairdCzuThtm8514 [place] [address] MCH 27.2 pg Normal 27.0-31.0 [facility] Comment on above: Performed By: #### 2 040878 ####KADEN KsiOhqs6568 [place] [address] MCHC mass conc (RBC) 33.0 g/dL Normal 33.0-37.0 [facility] Comment on above: Performed By: #### 2 970801 ####KADENMorelia BairdOuwBkbc8440 [place] [address] MCV 82.6 fL Normal 78.0-100.0 [facility] Comment on above: Performed By: #### 2 453947 ####KADENMorelia BairdHmsYtry0331 [place] [address] Platelet mean volume (PMV) 8.0 fL Normal 7.4-11.0 [facility] Comment on above: Performed By: #### 2 656217 ####KADENMorelia BairdEbtFjvl1828 [place] [address] Platelets 233 E3/mcL Normal 130-400 [facility] Comment on above: Performed By: #### 2 426519 ####KADEN JztFvyg9677 [place] [id number] WBC (Leukocytes) 9.0 E3/mcL Normal 3.6-11.0 [facility] Comment on above: Performed By: #### 2 332128 ####KADEN PozCnvt6585 [place] [address] UA Completeon 04-11-2017 UA Blood Negative Normal Negative [facility] Comment on above: Result Comment: High concentration of Ascorbic Acid present in urine. This may cause False Negative Occ Blood. Review microscopic results and patient's clinical symptoms. Performed By: #### 8 7412592 ####KADEN Urinalysis Automated Noziyzadvb4567 [place] [address] UA Amorph Chastity 1+ /HPF Abnormal None [facility] Comment on above: Performed By: #### 8 9018848 ####KADEN Urinalysis Automated Xywowhyosq4721 [place] [address] UA Ascorbic Acid 40 mg/dL High <=19 [facility] Comment on above: Performed By: #### 8 9640514 ####KADEN Urinalysis Automated Ljmhkwgvxp9107 [place] [address] UA Bacteria Trace Abnormal None [facility] Comment on above: Performed By: #### 8 4681378 ####KADEN Urinalysis Automated Ucyzwljqzh1039 [place] [address] UA Clarity Cloudy Abnormal Clear [facility] Comment on above: Performed By: #### 8 4968210 ####KADEN Urinalysis Automated Vgftymiban2047 [place] [address] UA Leuk Est Negative Normal Negative [facility] Comment on above: Performed By: #### 8 9486627 ####KADEN Urinalysis Automated Ldmcyokfcv1167 [place] [address] UA Mucous Few Abnormal Trace [facility] Comment on above: Performed By: #### 8 6158167 ####KADEN Urinalysis Automated Vyxurquwme3233 [place] [address] UA Nitrite Negative Normal Negative [facility] Comment on above: Performed By: #### 8 8846359 ####KADEN Urinalysis Automated Yekhhkfjei2128 [place] [address] UA pH 7.0 Normal 4.6-8.0 [facility] Comment on above: Performed By: #### 8 1083286 ####KADEN Urinalysis Automated Cdeyravnaz9809 [place] [address] UA Protein Negative Normal Negative [facility] Comment on above: Performed By: #### 8 5349359 ####KADEN Urinalysis Automated Mbbpleiyyu8712 [place] [address] UA Spec Grav 1.025 Normal 1.003-1.03 0 [facility] Comment on above: Performed By: #### 8 1797273 ####KADEN Urinalysis Automated Domtksxjsl0842 [place] [address] UA Squam Epithelial 5-10 Abnormal 0-5 [facility] Comment on above: Performed By: #### 8 2275239 ####KADEN Urinalysis Automated Jwubhjdart6011 [place] [address] UA Urobilinogen 2.0 mg/dL Abnormal [facility] Comment on above: Performed By: #### 8 2315701 ####KADEN Urinalysis Automated Iaoximjodv1889 [place] [address] Urine, color Yellow Normal Yellow [facility] Comment on above: Performed By: #### 8 1888934 ####KADEN Urinalysis Automated Lyeyshgclm4049 [place] [address] Urine, erythrocytes 0-3 Normal 0-3 [facility] Comment on above: Performed By: #### 8 3269734 ####KADEN Urinalysis Automated Hxkhpqbrhn7870 [place] [address] Urine, glucose Negative Normal Negative [facility] Comment on above: Performed By: #### 8 3375713 ####KADEN Urinalysis Automated Diouhukshv9456 [place] [address] Urine, ketones presence 2+ Abnormal Negative [facility] Comment on above: Performed By: #### 8 7560904 ####KADEN Urinalysis Automated Basoifoywu7485 [place] [address] Urine, urobilinogen Negative Normal Negative [facility] Comment on above: Performed By: #### 8 2143252 ####KADEN Urinalysis Automated Enjaxybpsx5033 [place] [address] eGFRon 04-11-2017 eGFR (non-black) mL/min/{1.73_m2} Normal [facility] Comment on above: Order Comment: Order added by Discern Expert. Performed By: #### 1 7952568 ####KADEN PxeIspq8047 [place] [address] eGFR AA >60 Normal [facility] Comment on above: Order Comment: Order added by Discern Expert. Performed By: #### 1 4502408 ####KADEN FhkTwvd9281 [place] [address] U BhCG Qlton 03-20-2017 HCG.beta subunit Qn Negative Normal Neg [facility] Comment on above: Performed By: #### 2 483476 ####KADEN Urinalysis Manual Ttajvfxagh3757 [place] [address] UA Completeon 03-20-2017 UA Blood Negative Normal Negative [facility] Comment on above: Performed By: #### 8 [id number] ####KADEN Urinalysis Automated Upajbbwphj8785 [place] [address] UA Amorph Chastity 1+ /HPF Abnormal None [facility] Comment on above: Performed By: #### 8 2010639 ####KADEN Urinalysis Automated Aiipoafnur4388 [place] [place] [address] UA Bacteria 2+ /HPF Abnormal None [facility] Comment on above: Performed By: #### [id number] ####KADEN Urinalysis Automated [id number] [place] [address] UA Clarity Cloudy Abnormal Clear [facility] Comment on above: Performed By: #### 8 [id number] ####KADEN Urinalysis Automated [id number] [place] [address] UA Leuk Est 1+ Abnormal Negative [facility] Comment on above: Performed By: #### 8 [id number] ####KADEN Urinalysis Automated [id number] [place] [address] UA Mucous Occasional Abnormal Trace [facility] Comment on above: Performed By: #### [id number] ####KADEN Urinalysis Automated [id number] [place] [address] UA Nitrite Negative Normal Negative [facility] Comment on above: Performed By: #### 8 [id number] ####KADEN Urinalysis Automated [id number] [place] [address] UA pH 6.0 Normal 4.6-8.0 [facility] Comment on above: Performed By: #### 8 [id number] ####KADEN Urinalysis Automated [id number] [place] [address] UA Protein 1+ Abnormal Negative [facility] Comment on above: Performed By: #### [id number] ####KADEN Urinalysis Automated [id number] [place] [address] UA Spec Grav 1.019 Normal 1.003-1.03 0 [facility] Comment on above: Performed By: #### 8 [id number] ####KADEN Urinalysis Automated [id number] [place] [address] UA Squam Epithelial 5-10 Abnormal 0-5 [facility] Comment on above: Performed By: #### 8 [id number] ####KADEN Urinalysis Automated [address] [place] [address] UA Urobilinogen Negative Normal [facility] Comment on above: Performed By: #### 8 [id number] ####KADEN Urinalysis Automated [id number] [place] [address] UA WBC >50 Abnormal 0-5 [facility] Comment on above: Performed By: #### 8 [id number] ####KADEN Urinalysis Automated [id number] [place] [address] Urine, color Yellow Normal Yellow [facility] Comment on above: Performed By: #### 8 [id number] ####KADEN Urinalysis Automated [id number] [place] [address] Urine, erythrocytes 5-10 Abnormal 0-3 [facility] Comment on above: Performed By: #### 8 [id number] ####KADEN Urinalysis Automated [address]womih6892 [place] [address] Urine, glucose Negative Normal Negative [facility] Comment on above: Performed By: #### 8 [id number] ####KADEN Urinalysis Automated Sdxqxbvpwt2040 [place] [address] Urine, ketones presence Negative Normal Negative [facility] Comment on above: Performed By: #### 8 [id number] ####KADEN Urinalysis Automated Gxuidctkuy9748 [place] [address] Urine, urobilinogen Negative Normal Negative [facility] Comment on above: Performed By: #### 8 [id number] ####KADEN Urinalysis Automated [address]zt1567 [place] [address] Vital Signs Date Time Vital Sign Value Performing Clinician Facility 11-23-2024 14:56-0400 Body mass index (BMI) [Ratio] 27.6 kg/m2 Cuong Diana DO Work Phone: [facility] 11-23-2024 14:56-0400 Body weight 77.56 kg Cuong Diana DO Work Phone: [facility] 11-23-2024 14:56-0400 Diastolic blood pressure 76 mm[Hg] Cuong Diana DO Work Phone: [facility] 11-23-2024 14:56-0400 Systolic blood pressure 122 mm[Hg] Cuong Diana DO Work Phone: [facility] 11-16-2024 13:44-0400 Body height 165.1 cm Malachi Macdonald MD Work Phone: [facility] 11-16-2024 13:44-0400 Body mass index (BMI) [Ratio] 28.79 kg/m2 Malachi Macdonald MD Work Phone: [facility] 11-16-2024 13:44-0400 Body weight 78.47 kg Malachi Macdonald MD Work Phone: [facility] 11-16-2024 13:44-0400 Diastolic blood pressure 77 mm[Hg] Malachi Macdonald MD Work Phone: [facility] 11-16-2024 13:44-0400 Heart rate 87 /min Malachi Macdonald MD Work Phone: [facility] 11-16-2024 13:44-0400 Systolic blood pressure 117 mm[Hg] Malachi Macdonald MD Work Phone: [facility] 11-10-2024 10:27-0400 Body mass index (BMI) [Ratio] 27.92 kg/m2 Cuong Diaan DO Work Phone: [facility] 11-10-2024 10:27-0400 Body weight 78.47 kg Cuong Diana DO Work Phone: [facility] 11-10-2024 10:27-0400 Diastolic blood pressure 60 mm[Hg] Cuong Diana DO Work Phone: [facility] 11-10-2024 10:27-0400 Systolic blood pressure 110 mm[Hg] Cuong Diana DO Work Phone: [facility] 10-26-2024 11:46-0400 Body mass index (BMI) [Ratio] 27.34 kg/m2 Cuong Diana DO Work Phone: [facility] 10-26-2024 11:46-0400 Body weight 76.84 kg Cuong Diana DO Work Phone: [facility] 10-26-2024 11:46-0400 Diastolic blood pressure 70 mm[Hg] Cuong Diana DO Work Phone: [facility] 10-26-2024 11:46-0400 Systolic blood pressure 120 mm[Hg] Cuong Diana DO Work Phone: [facility] 10-12-2024 09:30-0400 Body mass index (BMI) [Ratio] 27.16 kg/m2 Cuong Diana DO Work Phone: [facility] 10-12-2024 09:30-0400 Body weight 76.32 kg Cuong Diana DO Work Phone: [facility] 10-12-2024 09:30-0400 Diastolic blood pressure 78 mm[Hg] Cuong Diana DO Work Phone: [facility] 10-12-2024 09:30-0400 Systolic blood pressure 120 mm[Hg] Cuong Diana DO Work Phone: [facility] 09-28-2024 13:39-0400 Diastolic blood pressure 74 mm[Hg] Malachi Macdonald MD Work Phone: [facility] 09-28-2024 13:39-0400 Heart rate 79 /min Malachi Macdonald MD Work Phone: [facility] 09-28-2024 13:39-0400 Systolic blood pressure 114 mm[Hg] Malachi Macdonald MD Work Phone: [facility] 09-10-2024 11:56-0400 Body mass index (BMI) [Ratio] 26.76 kg/m2 Cuong Diana DO Work Phone: [facility] 09-10-2024 11:56-0400 Body weight 75.21 kg Cuong Diana DO Work Phone: [facility] 09-10-2024 11:56-0400 Diastolic blood pressure 80 mm[Hg] Cuong Diana DO Work Phone: [facility] 09-10-2024 11:56-0400 Systolic blood pressure 110 mm[Hg] Cuong Diana DO Work Phone: [facility] 08-27-2024 14:22-0400 Body mass index (BMI) [Ratio] 27.12 kg/m2 Ashwin Packer MD Work Phone: [facility] 08-27-2024 14:22-0400 Body weight 73.94 kg Ashwin Packer MD Work Phone: [facility] 08-27-2024 14:22-0400 Diastolic blood pressure 64 mm[Hg] Ashwin Packer MD Work Phone: [facility] 08-27-2024 14:22-0400 Systolic blood pressure 104 mm[Hg] Ashwin Packer MD Work Phone: [facility] 08-13-2024 11:48-0500 Body mass index (BMI) [Ratio] 25.95 kg/m2 Elena Fofana FERMIN Work Phone: [facility] 08-13-2024 11:48-0500 Body weight 72.94 kg Elena Fofana PA Work Phone: [facility] 08-13-2024 11:48-0500 Diastolic blood pressure 68 mm[Hg] Elena Fofana PA Work Phone: [facility] 08-13-2024 11:48-0500 Systolic blood pressure 112 mm[Hg] Elena Fofana PA Work Phone: [facility] 07-20-2024 11:13-0500 Body mass index (BMI) [Ratio] 25.73 kg/m2 Cuong Diana DO Work Phone: [facility] 07-20-2024 11:13-0500 Body weight 72.3 kg Cuong Diana DO Work Phone: [facility] 07-20-2024 11:13-0500 Diastolic blood pressure 60 mm[Hg] Cuong Diana DO Work Phone: [facility] 07-20-2024 11:13-0500 Systolic blood pressure 100 mm[Hg] Cuong Diana DO Work Phone: [facility] 06-18-2024 10:37-0500 Body mass index (BMI) [Ratio] 25.02 kg/m2 [facility] 06-18-2024 10:37-0500 Body weight 70.31 kg [facility] Nurse [facility] 06-18-2024 10:37-0500 Diastolic blood pressure 72 mm[Hg] [facility] 06-18-2024 10:37-0500 Systolic blood pressure 118 mm[Hg] [facility] 07-18-2023 10:30-0500 Body mass index (BMI) [Ratio] 26.7 kg/m2 Cuong Diana DO Work Phone: [facility] 07-18-2023 10:30-0500 Body weight 75.03 kg Cuong Diana DO Work Phone: [facility] 07-18-2023 10:30-0500 Diastolic blood pressure 68 mm[Hg] Cuong Diana DO Work Phone: [facility] 07-18-2023 10:30-0500 Systolic blood pressure 106 mm[Hg] Cuong Diana DO Work Phone: [facility] 02-11-2023 14:13-0400 Body height 165.1 cm PAZhao Wyatt Work Phone: [facility] 02-11-2023 14:13-0400 Body temperature 97.9 [degF] SADAF Wyatt Work Phone: [facility] 02-11-2023 14:13-0400 Body weight 70.55 kg SADAF Wyatt Work Phone: [facility] 02-11-2023 14:13-0400 Diastolic blood pressure 80 mm[Hg] SADAF Wyatt Work Phone: [facility] 02-11-2023 14:13-0400 Heart rate 60 /min SADAF Wyatt Work Phone: [facility] 02-11-2023 14:13-0400 Respiratory rate 15 /min SADAF Wyatt Work Phone: [facility] 02-11-2023 14:13-0400 SaO2% (BldA) [Mass fraction] 99 % SADAF Wyatt Work Phone: [facility] 02-11-2023 14:13-0400 Systolic blood pressure 134 mm[Hg] SADAF Wyatt Work Phone: [facility] 02-08-2023 12:36-0400 Body height 165.1 cm SADAF Wyatt Work Phone: [facility] 02-08-2023 12:36-0400 Body temperature 98.2 [degF] SADAF Wyatt Work Phone: [facility] 02-08-2023 12:36-0400 Body weight 72.57 kg PA-Ventura Wyatt Work Phone: [facility] 02-08-2023 12:36-0400 Diastolic blood pressure 84 mm[Hg] PA-Ventura Wyatt Work Phone: [facility] 02-08-2023 12:36-0400 Heart rate 74 /min PA-Ventura Wyatt Work Phone: [facility] 02-08-2023 12:36-0400 Respiratory rate 15 /min PA-C Andie Wyatt Work Phone: [facility] 02-08-2023 12:36-0400 SaO2% (BldA) [Mass fraction] 98 % TARIQC Andie Wyatt Work Phone: [facility] 02-08-2023 12:36-0400 Systolic blood pressure 150 mm[Hg] PA-Ventura Wyatt Work Phone: [facility] 12-19-2022 14:43-0400 Body temperature 96.9 [degF] SADAF Wyatt Work Phone: [facility] 12-19-2022 14:43-0400 Diastolic blood pressure 74 mm[Hg] FERMIN-Ventura Wyatt Work Phone: [facility] 12-19-2022 14:43-0400 Heart rate 59 /min SADAF Wyatt Work Phone: [facility] 12-19-2022 14:43-0400 Respiratory rate 18 /min SADAF Wyatt Work Phone: [facility] 12-19-2022 14:43-0400 SaO2% (BldA) [Mass fraction] 100 % FERMIN-C Andie Wyatt Work Phone: [facility] 12-19-2022 14:43-0400 Systolic blood pressure 115 mm[Hg] FERMIN-Ventura Wyatt Work Phone: [facility] 12-19-2022 14:00-0400 Diastolic blood pressure 89 mm[Hg] PA-C Andie Wyatt Work Phone: [facility] 12-19-2022 14:00-0400 Heart rate 79 /min PA-C Andie Wyatt Work Phone: [facility] 12-19-2022 14:00-0400 Respiratory rate 16 /min PA-C Andie Wyatt Work Phone: [facility] 12-19-2022 14:00-0400 SaO2% (BldA) [Mass fraction] 99 % PA-C Andie Wyatt Work Phone: [facility] 12-19-2022 14:00-0400 Systolic blood pressure 150 mm[Hg] PA-C Andie Wyatt Work Phone: [facility] 12-19-2022 03:30-0400 Body height 165.1 cm PA-C Andie Wyatt Work Phone: [facility] 12-19-2022 03:30-0400 Body weight 72.2 kg PA-C Andie Wyatt Work Phone: [facility] 12-18-2022 23:07-0400 Body height 165.1 cm PA-C Andie Wyatt Work Phone: [facility] 12-18-2022 23:07-0400 Body weight 74.2 kg PA-Ventura Wyatt Work Phone: [facility] 12-18-2022 23:05-0400 Body temperature 98.5 [degF] PA-C Andie Wyatt Work Phone: [facility] 08-20-2022 14:31-0500 Body height 165.1 cm PA-C Andie Wyatt Work Phone: [facility] 08-20-2022 14:31-0500 Body temperature 98.9 [degF] PA-C Andie Wyatt Work Phone: [facility] 08-20-2022 14:31-0500 Body weight 71.55 kg PA-C Andie Wyatt Work Phone: [facility] 08-20-2022 14:31-0500 Diastolic blood pressure 87 mm[Hg] SADAF Wyatt Work Phone: [facility] 08-20-2022 14:31-0500 Heart rate 97 /min SADAF Wyatt Work Phone: [facility] 08-20-2022 14:31-0500 Respiratory rate 18 /min SADAF Wyatt Work Phone: [facility] 08-20-2022 14:31-0500 SaO2% (BldA) [Mass fraction] 98 % SADAF Wyatt Work Phone: [facility] 08-20-2022 14:31-0500 Systolic blood pressure 135 mm[Hg] SADAF Wyatt Work Phone: [facility] 02-08-2022 03:06-0400 Body weight 68.[address] CUONG ORTIZ . [facility] Comment on above: Performed By: #### AFPMAT #### [facility] [address] [place] [address] Dr. Juan Antonio Ibarra 02-05-2022 18:24-0400 Body height 165.1 cm SADAF Wyatt Work Phone: [facility] 02-05-2022 18:24-0400 Body temperature 98.3 [degF] SADAF Wyatt Work Phone: [facility] 02-05-2022 18:24-0400 Body weight 67.9 kg SADAF Wyatt Work Phone: [facility] 02-05-2022 18:24-0400 Diastolic blood pressure 68 mm[Hg] SADAF Wyatt Work Phone: [facility] 02-05-2022 18:24-0400 Heart rate 92 /min SADAF Wyatt Work Phone: [facility] 02-05-2022 18:24-0400 Respiratory rate 18 /min SADAF Wyatt Work Phone: [facility] 02-05-2022 18:24-0400 SaO2% (BldA) [Mass fraction] 99 % SADAF Wyatt Work Phone: [facility] 02-05-2022 18:24-0400 Systolic blood pressure 125 mm[Hg] SADAF Wyatt Work Phone: [facility] Encounters Encounter Date Encounter Type Care Provider Facility Start: 12-08-2024 End: 12-08-2024 Clinisync Result Encounter Cuong Diana DO Work Phone: [facility] External [facility] Unsolicited Start: 12-08-2024 End: 12-08-2024 Clinisync Result Encounter Cuong Diana DO Work Phone: [facility] Unsolicited Start: 12-07-2024 End: 12-07-2024 Bamboo flowsheet Cuong Diana DO Work Phone: [facility] Start: 12-07-2024 End: 12-07-2024 Bamboo flowsheet Cuong Diana DO Work Phone: [facility] Start: 12-07-2024 End: 12-07-2024 ambulatory CUONG DIANA Not Available Start: 12-07-2024 End: 12-07-2024 Office outpatient visit 15 minutes Cuong Diana DO Work Phone: [facility] Comment on above: Third trimester preg junaid ([facility]); 36 weeks gestation of ([facility]) Start: 12-01-2024 End: 12-01-2024 Clinisync Result Encounter Cuong Diana DO Work Phone: [facility] External [facility] Unsolicited Start: 12-01-2024 End: 12-01-2024 Clinisync Result Encounter Cuong Diana DO Work Phone: [facility] External [facility] Unsolicited Start: 11-30-2024 End: 11-30-2024 Bamboo flowsheet Cuong Diana DO Work Phone: [facility] Start: 11-30-2024 End: 11-30-2024 Bamboo flowsheet Cuong Diana DO Work Phone: [facility] Start: 11-30-2024 End: 11-30-2024 Office outpatient visit 15 minutes Cuong Diana DO Work Phone: [facility] Comment on above: Third trimester preg junaid ([facility]); 35 weeks gestation of ([facility]) Start: 11-30-2024 End: 11-30-2024 ambulatory CUONG DIANA Not Available Start: 11-24-2024 End: 11-24-2024 Clinisync Result Encounter Cuong Diana DO Work Phone: [facility] External [facility] Unsolicited Start: 11-24-2024 End: 11-24-2024 Clinisync Result Encounter Cuong Diana DO Work Phone: [facility] External [facility] Unsolicited Start: 11-23-2024 End: 11-23-2024 ambulatory CUONG DIANA Not Available Start: 11-23-2024 End: 11-23-2024 Office outpatient visit 15 minutes Cuong Diana DO Work Phone: [facility] Comment on above: Third trimester preg junaid; 34 weeks gestation of Start: 11-23-2024 End: 11-23-2024 Bamboo flowsheet Cuong Diana DO Work Phone: [facility] Start: 11-23-2024 End: 11-23-2024 Bamboo flowsheet Cuong Diana DO Work Phone: [facility] Start: 11-17-2024 End: 11-17-2024 Clinisync Result Encounter Cuong Diana DO Work Phone: [facility] External [facility] Unsolicited Start: 11-17-2024 End: 11-17-2024 Clinisync Result Encounter Cuong Diana DO Work Phone: [facility] Unsolicited Start: 11-16-2024 End: 11-16-2024 Office outpatient visit 25 minutes Malachi Macdonald MD Work Phone: 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 Start: 11-10-2024 End: 11-10-2024 Bamboo flowsheet Cuong Diana DO Work Phone: [facility] Start: 11-10-2024 End: 11-10-2024 Bamboo flowsheet Cuong Diana DO Work Phone: [facility] Start: 11-10-2024 End: 11-10-2024 Clinisync Result Encounter Cuong Diana DO Work Phone: [facility] External [facility] Unsolicited Start: 11-10-2024 End: 11-10-2024 Office outpatient visit 15 minutes Cuong Diana DO Work Phone: [facility] Comment on above: 33 weeks gestation o f ; Third trimester Start: 11-10-2024 End: 11-10-2024 ambulatory CUONG DIANA Not Available Start: 11-03-2024 End: 11-03-2024 Clinisync Result Encounter Cuong Diana DO Work Phone: [facility] External [facility] Unsolicited Start: 11-03-2024 End: 11-03-2024 Clinisync Result Encounter Cuong Diana DO Work Phone: [facility] Unsolicited Start: 10-26-2024 End: 10-26-2024 Bamboo flowsheet Cuong Diana DO Work Phone: [facility] Start: 10-26-2024 End: 10-26-2024 Bamboo flowsheet Cuong Diana DO Work Phone: [facility] Start: 10-26-2024 End: 10-26-2024 Clinisync Result Encounter Cuong Diana DO Work Phone: [facility] External Department Unsolicited Start: 10-26-2024 End: 10-26-2024 Office outpatient visit 15 minutes Cuong Diana DO Work Phone: [facility] Comment on above: 30 weeks gestation o f ; Third trimester ; Nadia cisterna magna (CMS/HCC); 28 weeks gestation of ; SGA (small for gestational age) Start: 10-26-2024 End: 10-26-2024 ambulatory CUONG DIANA Not Available Start: 10-19-2024 End: 10-19-2024 ambulatory CUONG DIANA Not Available Start: 10-12-2024 End: 10-12-2024 Bamboo flowsheet Cuong Diana DO Work Phone: [facility] Start: 10-12-2024 End: 10-12-2024 Bamboo flowsheet Cuong Diana DO Work Phone: [facility] Start: 10-12-2024 End: 10-12-2024 Office outpatient visit 15 minutes Cuong Diana DO Work Phone: [facility] Comment on above: Third trimester preg junaid; 28 weeks gestation of ; Nadia cisterna magna (CMS/HCC) Start: 10-12-2024 End: 10-12-2024 ambulatory CUONG DIANA Not Available Start: 09-28-2024 End: 09-28-2024 Office outpatient visit 25 minutes Malachi Macdonald MD Work Phone: 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 Start: 08-27-2024 End: 08-27-2024 ambulatory ASHWIN PACKER [facility] Start: 08-13-2024 End: 08-13-2024 [...] Unsolicited Start: 06-22-2024 End: 06-22-2024 ambulatory Andie Wytat PA-C Work Phone: [facility] Work Phone: Start: 06-22-2024 End: 06-22-2024 Departed Referred Andie Wyatt PA-C Work Phone: [facility] Start: 06-18-2024 End: 06-18-2024 ambulatory [facility] Nurse [facility] Comment on above: GA: 12w2d Start: 12-26-2023 End: 12-26-[address] [facility] Start: 12-24-2023 End: 12-24-2023 ambulatory CUONG DIANA Not Available Start: 07-22-2023 Documentation procedure Lucio Renee LCGC Work Phone: [facility] Comment on above: Outgoing Ca ll [...] 07-03-2023 Telemedicine consultation with patient Rosaura Renee LCGC Work Phone: [facility] Comment on above: Family history of ge netic disorder (Primary Dx); Genetic testing; Fetus with trisomy 13, single gestation Start: 06-25-2023 Chart abstracting Scanning Pro vider External [facility] Start: 02-11-2023 End: 02-11-2023 Emergency department patient visit SADAF Wyatt Work Phone: [facility] Work Phone: Start: 02-08-2023 End: 02-08-2023 Emergency department patient visit SADAF Wyatt Work Phone: [facility] Work Phone: Start: 12-19-2022 End: 12-19-2022 Evaluation and management of inpatient SADAF Wyatt Work Phone: [facility] Work Phone: Start: 12-19-2022 End: 12-19-2022 observation encounter SADAF Wyatt Work Phone: [facility] Work Phone: Start: 10-24-2022 End: 10-24-[address] CUONG ORTIZ . Facility:[facility] Start: 10-23-2022 Registered Recurring SADAF Wyatt Work Phone: [facility] Start: 08-20-2022 End: 08-20-2022 Emergency department patient visit SADAF Wyatt Work Phone: [facility]-Emergency Room Work Phone: Start: 07-23-[address] CUONG ORTIZ . Facili ty:[facility]1 Start: 07-09-2022 End: 07-09-[address] CUONG ORTIZ . Facility:[facility] Start: 07-05-2022 End: 07-07-2022 Evaluation and management of inpatient DR CUONG ORTIZ . Facility:[facility] Start: 07-02-2022 End: 07-02-2022 [facility] Facility:[facility] Start: 06-28-2022 End: 06-28-[address] CUONG ORTIZ . Facility:[facility] Start: 06-21-2022 End: 06-21-2022 [facility] Facility:[facility] Start: 06-16-2022 End: 06-16-2022 ambulatory [...] Start: 05-24-2022 End: 05-24-2022 ambulatory [facility] Facility:[facility] Start: 04-04-2022 End: 04-05-2022 ambulatory [...] department patient visit SADAF Wyatt Work Phone: [facility]-Emergency Room Start: 12-26-2021 End: 12-27-[address] CUONG ORTIZ . Facility:[facility] Start: 12-07-2021 End: 12-08-[address] CUONG ORTIZ . Facility: Start: 12-27-2017 End: 12-27-2017 Patient encounter Christian Ivan Facility:[facility] Start: 12-12-2017 End: 12-12-2017 Emergency department patient visit Luke Barbosa Facility:[facility] Start: 12-12-2017 Patient encounter Facil [...] and management of inpatient CLARA TERESA JAMA [facility] Start: 11-30-2017 End: 11-30-2017 Patient encounter Eloisa Nguyen Facility:[facility] Start: 11-30-2017 Patient encounter Facil [id number] Start: 11-28-2017 End: 11-28-2017 Patient encounter CLARA JAMA [facility] Start: 11-21-2017 End: 11-21-2017 [facility] Start: 11-21-2017 End: 11-21-2017 Patient encounter Juanitarafael Sweeneya Facility:[facility] Start: 11-20-2017 Patient encounter Facil [id number] Start: 11-17-2017 End: 11-17-2017 Patient encounter Christian Ivan Facility:[facility] Start: 11-16-2017 Patient encounter Facil [id number] Start: 11-07-2017 End: 11-07-2017 Patient encounter [facility] Start: 10-31-2017 End: 10-31-2017 Patient encounter CLARA JAMA [facility] Start: 10-24-2017 End: 10-24-2017 Patient encounter MARCO ANTONIO ANTONIO [facility] Start: 10-16-2017 End: 10-16-2017 Patient encounter Christian Ivan Facility:[facility] Start: 10-08-2017 End: 10-08-2017 Patient encounter ALIREZA PATEL [facility] Start: 10-08-2017 End: 10-08-2017 Patient encounter OKSANASTAN AMADO [facility] Start: 10-01-2017 End: 10-02-2017 Patient encounter Christian Ivan Facility:[facility] Start: 09-10-2017 End: 09-11-2017 Patient encounter LUIS DANIEL TRAMMELL [facility] Start: 09-10-2017 End: 09-10-2017 Patient encounter KRIS HOYT [facility] Start: 09-10-2017 End: 09-10-2017 Patient encounter CLARA JAMA [facility] Start: 09-03-2017 End: 09-04-2017 Patient encounter Christian Ivan Facility:[facility] Start: 08-28-2017 Ambulatory NAGA ACOSTA [facility] Start: 08-13-2017 End: 08-14-2017 Patient encounter CLARA JAMA [facility] Start: 08-13-2017 End: 08-13-2017 Patient encounter MEREDITH BENITO [facility] Start: 08-13-2017 End: 08-13-2017 Patient encounter ALIREZA PATEL [facility] Start: 08-10-2017 End: 08-10-2017 Emergency department patient visit Luke Barbosa Facility:[facility] Start: 08-06-2017 End: 08-07-2017 Patient encounter Christian A Shekhar Facility:[facility] Start: 07-23-2017 End: 07-24-2017 Patient encounter Christian A Shekhar Facility:[facility] Start: 07-18-2017 End: 07-18-2017 Patient encounter CLARA JAMA [facility] Start: 07-09-2017 End: 07-10-2017 Patient encounter Christian A Pendleton Facility:[facility] Start: 06-25-2017 End: 06-26-2017 Patient encounter Christian A Pendleton Facility:[facility] Start: 06-12-2017 End: 06-12-2017 Patient encounter Christian A Pendleton Facility:[facility] Start: 05-14-2017 End: 05-15-2017 Patient encounter Christian A Pendleton Facility:[facility] Start: 05-01-2017 End: 05-02-2017 Patient encounter Eloisa Nguyen Facility:[facility] Start: 04-23-2017 End: 04-23-2017 Patient encounter Yasmin Evans Facility:[facility] Start: 04-22-2017 End: 04-22-2017 Emergency department patient visit Luke Barbosa Facility:[facility] Start: 04-18-2017 End: 04-18-2017 Emergency department patient visit Luke Barbosa Facility:[facility] Start: 04-16-2017 End: 04-17-2017 Patient encounter Gamaliel Savage Facility:[facility] Start: 04-16-2017 End: 04-17-2017 Patient encounter Christian A Shekhar Facility:[facility] Start: 04-11-2017 End: 04-11-2017 Emergency department patient visit Nela Cabrera Doctor Assigned Facility:[facility] Start: 03-26-2017 End: 03-27-2017 Patient encounter Luke Barbosa Facility:[facility] Start: 03-20-2017 End: 03-20-2017 Emergency department patient visit Nodr No Doctor Assigned Facility:[facility] Start: 03-01-2017 End: 03-01-2017 Emergency department patient visit Nodr No Doctor Assigned Facility:[facility] Procedures Date Procedure Procedure Detail Performing Clinician Start: 12-08-2024 US OB BPP W NON-STRESS Cuong Diana DO Work Phone: Start: 12-01-2024 US OB BPP W NON-STRESS Cuong Diana DO Work Phone: Start: 12-01-2024 US OB GROWTH Cuong Fazi o DO Work Phone: Start: 11-30-2024 Urnls dip stick/tabl et rgnt non-auto w/o micrscp Cuong Diana DO Work Phone: Start: 11-24-2024 US OB BPP W NON-STRESS Cuong Diana DO Work Phone: Start: 11-23-2024 Urnls dip stick/tabl et rgnt non-auto w/o micrscp Cuong Diana DO Work Phone: Start: 11-17-2024 US OB BPP W NON-STRESS Cuong Diana DO Work Phone: Start: 11-10-2024 Urnls dip stick/tabl et rgnt non-auto w/o micrscp Cuong Diana DO Work Phone: Start: 11-10-2024 US OB BPP W NON-STRESS Cuong Diana DO Work Phone: Start: 11-03-2024 US OB GROWTH Cuong Fazi o DO Work Phone: Start: 11-03-2024 US OB BPP W NON-STRESS Cuong Diana DO Work Phone: Start: 10-26-2024 [facility] CMP (CMP) (FOR R [...] Work Phone: Start: 09-10-2024 IGP,APTIMA HPV,AGE GDLN [facility] Work Phone: Start: 09-10-2024 Microscopic observat ion [Identifier] in Cervix by Cyto stain [facility] Work Phone: Start: 07-20-2024 AFP, SERUM, OPEN SPI NA BIFIDA Cuong Diana DO Work Phone: Start: 07-20-2024 Urnls dip stick/tabl et rgnt non-auto w/o micrscp Cuong Diana DO Work Phone: Start: 06-22-2024 ALL CBC WITH AUTO DIFF [facility] DO Work Phone: Start: 06-18-2024 End: 06-18-2024 [...] Phone: Start: 12-18-2022 Plain chest X-ray SADAF Andie Yoselin Work Phone: Start: 12-18-2022 X-ray of both [...] above: Performed By: #### T &S #### [place] [id number] Aerobic microbial culture FERMIN Zhao Andie Wyatt Work Phone: Investigation of transfusion reaction SADAF Andie Yoselin Work Phone: Plan of Treatment Date Care Activity Detail Author Start: 12-18-2032 DTaP,Tdap and Td Vaccines (10 - Td or Tdap) DTaP,Tdap and Td Vaccines (10 - Td or Tdap) [facility] Start: 10-25-2027 Screening for malign ant neoplasm of cervix [facility] Start: 09-11-2027 Screening for malign ant neoplasm of cervix Pap Smear [facility] Start: 11-16-2025 Adult BMI Screening Adult BMI Screen ing [facility] Start: 10-24-2025 Screening for malign ant neoplasm of cervix Pap Smear [facility] Start: 09-28-2025 Tobacco Screening Tobacco Screening [facility] Start: 08-27-2025 Adult BMI Screening Adult BMI Screen ing [facility] Start: 08-27-2025 Tobacco Screening Tobacco Screening [facility] Start: 02-15-2025 Influenza vaccination [facility] Start: 12-14-2024 End: 12-14-2024 Patient encounter procedure 12/14/2024 1:30 PM EDT Routine [facility] [address] [place] [id number] Cuong Ortiz, DO [address] [place] [address] [facility] Start: 12-07-2024 End: 12-07-2024 Patient encounter procedure 12/07/2024 1:00 PM EDT Routine [facility] [address] [place] [phone] Cuong Ortiz, DO [address] [place] [address] [facility] Start: 11-30-2024 End: 11-30-2025 CULTURE, GROUP B STREP WITH SUSCEPTIBLITY CULTURE, GROUP B STREP WITH SUSCEPTIBLITY Lab Routine Third trimester ([facility]) Expected: 11/30/2024, Expires: 11/30/2025 [facility] Work Phone: Comment on above: Expected: 11/30/2024 , Expires: 11/30/2025 Start: 11-30-2024 End: 11-30-2024 Patient encounter procedure [facility] Comment on above: Arrived Start: 11-23-2024 End: 11-23-2024 Patient encounter procedure 11/23/2024 2:20 PM EDT Routine [facility] [address] [place] [phone] Cuong Ortiz, DO [address] [place] [address] [facility] Start: 11-10-2024 End: 11-10-2024 Patient encounter procedure [facility] Comment on above: Arrived Start: 10-26-2024 End: 04-28-2025 US biophysical profile [...] for gestational age) Expected: 10/26/2024, Expires: 02/26/2025 [facility] Healthcare Comment on above: Expected: 10/26/2024 , Expires: 02/26/2025 Start: 10-26-2024 End: 10-26-2024 Patient encounter procedure [facility] Comment on above: Arrived Start: 10-19-2024 End: 10-19-2024 Professional / ancillary services management 10/19/2024 11:30 AM EDT Ancillary Procedure [facility] [address] [place] [id number] [facility] Start: 10-12-2024 End: 02-11-2025 US for US OB follow up transabdominal approach Imaging Routine Nadia cisterna magna (CMS/HCC) Expected: 10/12/2024, Expires: 02/11/2025 [facility] Work Phone: Comment on above: Expected: 10/12/2024 , Expires: 02/11/2025 Start: 10-12-2024 End: 10-12-2024 Patient encounter procedure 10/12/2024 1:20 PM EDT Routine [facility] [address] [place] [phone] Cuong Ortiz, DO [address] [place] [address] [facility] Start: 10-12-2024 End: 10-12-2024 Patient encounter procedure 10/12/2024 9:20 AM EDT Routine [facility] [address] [place] [phone] Cuong Ortiz, DO [address] [place] [address] Arrived [facility] Comment on above: Arrived Start: 09-24-2024 End: 09-24-2024 Patient encounter procedure 09/24/2024 9:45 AM EDT Appointment [facility] [place] [address] [facility] [address] [place] [address] [facility] [place] Start: 09-10-2024 End: 09-10-2024 Patient encounter procedure 09/10/2024 11:10 AM EDT Routine [facility] [address] [place] [phone] Cuong Ortiz, DO [address] [place] [address] [facility] Start: 08-27-2024 End: 08-27-2025 [...] 08/27/2024 1:00 PM EDT Appointment [facility] [place] [address] [facility] [address] [place] [address] [facility] [place] Start: 08-13-2024 End: 08-13-2024 Patient encounter procedure 08/13/2024 11:30 AM EST Routine [facility] [address] [place] [phone] Elena Fofana PA [address] [place], [place] [id number] [facility] Start: 08-13-2024 End: 08-13-2024 Professional / ancillary services management 08/13/2024 10:30 AM EST Ancillary Procedure [facility] [address] [place] [id number] [facility] Start: 07-20-2024 End: 08-17-2024 [...] [address] [address] Cuong Ortiz DO [address] [place] [address] [facility] Start: 06-22-2024 Bacteria identified in Urine by Culture Urine Culture [facility] Start: 06-22-2024 Urine culture [facility] Start: 06-18-2024 End: 06-18-2025 ABO/Rh ABO/Rh Lab Routine Missed menses , unspecified gestational age Expected: 06/18/2024 (Approximate), Expires: 06/18/2025 [facility] Healthcare Comment on above: Expected: 06/18/2024 (Approximate), Expires: 06/18/2025 Start: 06-18-2024 End: 06-18-2025 Blood type and Indirect antibody screen panel - Blood Type and screen Lab Routine Missed menses , unspecified gestational age Expected: 06/18/2024 (Approximate), Expires: 06/18/2025 [facility] Work Phone: Comment on above: Expected: 06/18/2024 (Approximate), Expires: 06/18/2025 Start: 06-18-2024 End: 06-18-2025 Drugs of abuse panel - Urine by Screen method Rapid drug screen, urine Lab Routine , unspecified gestational age Encounter for supervision of normal first in first trimester Expected: 06/18/2024 (Approximate), Expires: 06/18/2025 [facility] Comment on above: Expected: 06/18/2024 (Approximate), Expires: 06/18/2025 Start: 02-16-2024 COVID-19 Vaccine ( season) COVID-19 Vaccine ( season) [facility] Start: 02-16-2024 Influenza vaccination [facility] Start: 09-11-2023 Adult BMI Screening Adult BMI Screen ing [facility] Start: 09-11-2023 Tobacco Screening Tobacco Screening [facility] Start: 08-15-2023 End: 08-15-2023 Patient encounter procedure 08/15/2023 2:15 PM EST Appointment [facility] [place] [address] [facility] [facility] [address] [place] [id number] [facility] [place] Start: 08-15-2023 End: 08-15-2023 Patient encounter procedure 08/15/2023 9:10 AM EST Routine [facility] [address] [place] [address] Cuong Ortiz, DO [address] [place] [address] [facility] Start: 07-18-2023 End: 07-18-2023 Patient encounter procedure 07/18/2023 8:00 AM EST Appointment [facility] [place] [address] [facility] [address] [place] [phone] [facility] [place] Start: 07-03-2023 End: 07-03-2023 Telemedicine consultation with patient 07/03/2023 11:00 AM EST Telemedicine [facility] [address] [place] [phone] Rosaura Renee, [facility] [address] [place] [address] [facility] Start: 05-02-2023 [facility] Start: 02-15-2023 COVID-19 Vaccine ( season) COVID-19 Vaccine ( season) [facility] Start: 02-15-2023 Influenza vaccination [facility] Start: 12-19-2022 Bacteria identified in Urine by Culture Urine Culture [facility] Start: 12-19-2022 [facility] Start: 12-19-2022 CT of head without contrast CT head/brain wo con [facility] Start: 12-19-2022 CT Unspecified body region WO contrast [facility] Start: 12-19-2022 Consultation [facility] Start: 12-19-2022 Hospital admission [facility] Start: 12-19-2022 X-ray of left foot XR foot LT 2V [facility] Start: 12-19-2022 XR Foot - left 2 Views [facility] Start: 12-18-2022 Computed tomography of thoracic spine without contrast CT thoracic spine wo [facility] Start: 12-18-2022 CT cervical spine without contrast CT cervical spine wo [facility] Start: 12-18-2022 CT Cervical spine WO contrast [facility] Start: 12-18-2022 CT Lumbar spine WO contrast [facility] Start: 12-18-2022 CT of head without contrast CT head/brain wo [facility] Start: 12-18-2022 CT of lumbar spine without contrast CT lumbar spine wo [facility] Start: 12-18-2022 CT Thoracic spine WO contrast [facility] Start: 12-18-2022 CT Unspecified body region WO contrast [facility] Start: 12-18-2022 Pelvis X-ray XR pelvis 1-2V [facility] Start: 12-18-2022 Plain chest X-ray XR chest 1V portab le [facility] Start: 12-18-2022 X-ray of both knees XR knee BI 2V [facility] Start: 12-18-2022 XR Chest Single view [facility] Start: 12-18-2022 XR Knee - bilateral 2 Views [facility] Start: 12-18-2022 XR Pelvis 1 or 2 Views [facility] Start: 2022 Screening for malign ant neoplasm of cervix [facility] Start: 02-05-2022 [facility] Work Phone: Start: 2013 Screening for malign ant neoplasm of cervix Pap Smear [facility] Start: 2011 DTaP,Tdap and Td Vaccines (1 - Tdap) DTaP,Tdap and Td Vaccines (1 - Tdap) [facility] Start: 2010 Adult BMI Follow Up Plan Adult BMI Follow Up Plan [facility] Anaerobic microbial culture Anaerobic Culture [facility] Bacteria identified in Urine by Culture [facility] Bacteria identified in Urine by Culture Urine culture Microbiology Routine Missed menses Ordered: 06/18/2024 [facility] Comment on above: Ordered: 06/18/2024 CBC W Auto Different ial panel - Blood CBC and differential Lab Routine Missed menses , unspecified gestational age Ordered: 06/18/2024 [facility] Comment on above: Ordered: 06/18/2024 CHLAMYDIA TRACHOMATI S (GENITO/STI) CHLAMYDIA TRACHOMATIS (GENITO/STI) Lab Routine STD exposure Vaginal discharge Ordered: 09/10/2024 [facility] Comment on above: Ordered: 09/10/2024 Cytology Cervical or vaginal smear or scraping study Pap Smear Pathology and Cytology Routine Well woman exam with routine gynecological exam Ordered: 09/10/2024 [facility] Work Phone: Comment on above: Ordered: 09/10/2024 Hemoglobin A1c/Hemoglobin.total in Blood Hemoglobin A1c Lab Routine Missed menses , unspecified gestational age Ordered: 06/18/2024 [facility] Comment on above: Ordered: 06/18/2024 Hepatitis B virus surface Ag [Presence] in Serum or Plasma by Immunoassay Hepatitis B surface antigen Lab Routine Missed menses , unspecified gestational age Ordered: 06/18/2024 [facility] Comment on above: Ordered: 06/18/2024 Hepatitis C virus Ab [Presence] in Serum or Plasma by Immunoassay Hepatitis C antibody Lab Routine Missed menses , unspecified gestational age Ordered: 06/18/2024 [facility] Comment on above: Ordered: 06/18/2024 HIV-1/HIV-2 antigen/antibody combination immunoassay HIV-1 and HIV-2 antibodies Lab Routine Missed menses , unspecified gestational age Ordered: 06/18/2024 [facility] Comment on above: Ordered: 06/18/2024 Human papilloma viru s DNA [Presence] in Unspecified specimen by Probe with amplification HPV DNA probe, amplified Microbiology Routine Well woman exam with routine gynecological exam Ordered: 09/10/2024 [facility] Comment on above: Ordered: 09/10/2024 Neisseria gonorrhoea e DNA [Presence] in Unspecified specimen by RAINER with probe detection Neisseria gonorrhea DNA probe, direct Lab Routine STD exposure Vaginal discharge Ordered: 09/10/2024 [facility] Comment on above: Ordered: 09/10/2024 Patient Education [facility] Work Phone: Patient referral [facility] Work Phone: Reagin Ab [Presence] in Serum by RPR RPR Lab Routine Missed menses , unspecified gestational age Ordered: 06/18/2024 [facility] Comment on above: Ordered: 06/18/2024 Rubella antibody, IgG Rubella an tibody, IgG Lab Routine Missed menses , unspecified gestational age Ordered: 06/18/2024 [facility] Comment on above: Ordered: 06/18/2024 SURESWAB(R) ADVANCED VAGINITIS PLUS, TMA SURESWAB(R) ADVANCED VAGINITIS PLUS, TMA Pathology and Cytology Routine STD exposure Vaginal discharge Ordered: 09/10/2024 [facility] Comment on above: Ordered: 09/10/2024 Immunizations Immunization Date Immunization Notes Care Provider Britney young 12-18-2022 tetanus toxoid, redu swati diphtheria toxoid, and acellular pertussis vaccine, adsorbed SADAF Wyatt Work Phone: [facility] 07-07-2022 diphtheria, tetanus toxoids and pertussis vaccine Ashwin Packre MD Work Phone: [facility] 11-07-2017 tetanus toxoid, redu swati diphtheria toxoid, and acellular pertussis vaccine, adsorbed Ashwin Packer MD Work Phone: [facility] 10-24-2017 tetanus toxoid, redu swati diphtheria toxoid, and acellular pertussis vaccine, adsorbed Ashwin Packer MD Work Phone: [facility] 05-19-2013 influenza, injectabl e, quadrivalent, preservative free Ashwin Packer MD Work Phone: [facility] 05-19-2013 influenza virus vacc ine, unspecified formulation Rosaura Renee [facility] Work Phone: [facility] 04-29-2012 influenza virus vacc ine, whole virus Ashwin Packer MD Work Phone: [facility] 10-18-2010 human papilloma viru s vaccine, quadrivalent Ashwin Packer MD Work Phone: [facility] 07-26-2010 human papilloma viru s vaccine, quadrivalent Ashwin Packer MD Work Phone: [facility] 12-24-2008 human papilloma viru s vaccine, quadrivalent Ashwin Packer MD Work Phone: [facility] 12-24-2008 meningococcal polysaccharide (groups A, C, Y and W-135) diphtheria toxoid conjugate vaccine (MCV4P) Ashwin Packer MD Work Phone: [facility] 12-09-1997 haemophilus influenz ae type b vaccine, PRP-T conjugate Ashwin Packer MD Work Phone: [facility] 12-09-1997 hepatitis B vaccine, pediatric or pediatric/adolescent dosage Ashwin Packer MD Work Phone: [facility] 10-08-1997 diphtheria, tetanus toxoids and acellular pertussis vaccine, unspecified formulation Ashwin Packer MD Work Phone: [facility] 10-08-1997 haemophilus influenz ae type b vaccine, PRP-T conjugate Ashwin Packer MD Work Phone: [facility] 10-08-1997 hepatitis B vaccine, pediatric or pediatric/adolescent dosage Ashwin Packer MD Work Phone: [facility] 10-08-1997 measles, mumps and rubella virus vaccine Ashwin Packer MD Work Phone: [facility] 10-08-1997 trivalent poliovirus vaccine, live, oral Ashwin Packer MD Work Phone: [facility] 09-18-1997 DTaP-Haemophilus influenzae type b conjugate vaccine Ashwin Packer MD Work Phone: [facility] 09-18-1997 poliovirus vaccine, unspecified formulation Ashwin Packer MD Work Phone: [facility] 03-10-1997 haemophilus influenz ae type b vaccine, PRP-T conjugate Ashwin Packer MD Work Phone: [facility] 03-10-1997 hepatitis B vaccine, pediatric or pediatric/adolescent dosage Ashwin Packer MD Work Phone: [facility] 08-23-1993 DTaP-Haemophilus influenzae type b conjugate vaccine Ashwin Packer MD Work Phone: [facility] 08-23-1993 measles, mumps and rubella virus vaccine Ashwin Packer MD Work Phone: [facility] 08-23-1993 trivalent poliovirus vaccine, live, oral Ashwin Packer MD Work Phone: [facility] 01-16-1993 haemophilus influenz ae type b vaccine, conjugate unspecified formulation Ashwin Packer MD Work Phone: [facility] 1992 DTaP-Haemophilus influenzae type b conjugate vaccine Ashwin Packer MD Work Phone: [facility] 1992 DTaP-Haemophilus influenzae type b conjugate vaccine Ashwin Packer MD Work Phone: [facility] 1992 poliovirus vaccine, unspecified formulation Ashwin Packer MD Work Phone: [facility] 1992 diphtheria, tetanus toxoids and pertussis vaccine Ashwin Packer MD Work Phone: [facility] 1992 haemophilus influenz ae type b vaccine, conjugate unspecified formulation Ashwin Packer MD Work Phone: [facility] 1992 trivalent poliovirus vaccine, live, oral Ashwin Packer MD Work Phone: [facility] 1992 DTaP-Haemophilus influenzae type b conjugate vaccine Ashwin Packer MD Work Phone: [facility] 1992 trivalent poliovirus vaccine, live, oral Ashwin Packer MD Work Phone: [facility] Payers Date Payer Category Payer Self-pay 2017 Medicaid 2017 Unknown 1992 Unknown [id number] 2.16.840.1.516694.3.579.2.278 1992 Unknown [id number] 2.16.840.1.216729.3.579.2.278 1992 Unknown [id number] 2.16.840.1.047525.3.579.2.278 1992 Unknown [id number] 2.16.840.1.358172.3.579.2.278 1992 Unknown [id number] 2.16.840.1.001890.3.579.2.593 1992 Unknown [id number] 2.16.840.1.607226.3.579.2.593 1992 Unknown [id number] 2.16.840.1.593439.3.579.2.593 1992 Unknown [id number] 2.16.840.1.159918.3.579.2.593 1992 Unknown [id number] 2.16.840.1.747624.3.579.2.593 1992 Unknown [id number] 2.16.840.1.532285.3.579.2.593 1992 Unknown [id number] 2.16.840.1.847838.3.579.2.593 1992 Unknown [id number] 2.16.840.1.426118.3.579.2.593 1992 Unknown [id number] 2.16.840.1.367523.3.579.2.593 1992 Unknown [id number] 2.16.840.1.823578.3.579.2.593 1992 Unknown [id number] 2.16.840.1.386109.3.579.2.593 1992 Unknown [id number] 2.16.840.1.389173.3.579.2.593 1992 Unknown [id number] 2.16.840.1.400373.3.579.2.593 1992 Unknown [id number] 2.16.840.1.859692.3.579.2.593 1992 Unknown [id number] 2.16.840.1.067837.3.579.2.593 1992 Unknown [id number] 2.16.840.1.266556.3.579.2.593 1992 Unknown [id number] 2.16.840.1.698161.3.579.2.593 1992 Unknown [id number] 2.16.840.1.789520.3.579.2.59 1992 Unknown [id number] 2.16.840.1.573201.3.579.2.593 1992 Unknown [id number] 2.16.840.1.599111.3.579.2.593 1992 Unknown [id number] 2.16.840.1.058690.3.579.2.59 1992 Unknown [id number] 2.16.840.1.134755.3.579.2.593 1992 Unknown [id number] 2.16.840.1.135421.3.579.2.128 1992 Unknown [id number] 2.16.840.1.101304.3.579.2.1285 1992 Unknown [id number] 2.16.840.1.497976.3.579.2.128 1992 Unknown [id number] 2.16.840.1.886954.3.579.2.1285 1992 Unknown [id number] 2.16.840.1.452981.3.579.2.1285 1992 Unknown [id number] 2.16.840.1.268939.3.579.2.1286 1992 Unknown [id number] 2.16.840.1.545168.3.579.2.6 1992 Unknown [id number] 2.16.840.1.049999.3.579.2.1258 1992 Unknown [id number] 2.16.840.1.056382.3.579.2.1258 1992 Unknown [id number] 2.16.840.1.442609.3.579.2.1258 1992 Unknown [id number] 2.16.840.1.685388.3.579.2.1258 1992 Unknown [id number] 2.16.840.1.585483.3.579.2.1258 1992 Unknown [id number] 2.16.840.1.839808.3.579.2.1258 1992 Unknown [id number] 2.16.840.1.077867.3.579.2.1258 1992 Unknown [id number] 2.16.840.1.257057.3.579.2.1258 1992 Unknown [id number] 2.16.840.1.866966.3.579.2.1258 1992 Unknown [id number] 2.16.840.1.341546.3.579.2.1258 1992 Unknown [id number] 2.16.840.1.419983.3.579.2.1258 1992 Unknown [id number] 2.16.840.1.807749.3.579.2.1258 1992 Unknown [id number] 2.16.840.1.503293.3.579.2.1258 1992 Unknown [id number] 1957 Medicaid [id number] 1957 Medicaid [id number] Medicaid [id number] Unknown Regular Auto/Liability [id number] Unknown [id number] Social History Date Type Detail Facility Start: 02-05-2022 End: 05-09-2023 Tobacco smoking status KSIS Never smoked tobacco (finding) [facility] Start: 1990 Sex Assigned At Female F [facility] Start: 12-19-2022 End: 12-19-2022 Tobacco smoking status [facility] Current some day smoker [facility] Start: 03-28-2022 End: 02-11-2023 Tobacco smoking status KSIS Ex-smoker (finding) [facility] Start: 07-18-2023 End: 11-23-2024 Alcohol intake Lifetime non-drinker (finding) [facility] Start: 05-09-2023 End: 08-12-2024 History of Social function [facility] Start: 05-09-2023 End: 08-12-2024 Tobacco use panel [facility] Start: 03-11-2023 [facility] Start: 1990 Sex Assigned At Not on file P [facility] Start: 01-20-2015 End: 06-24-2024 Sex Female (finding) [facility] History of tobacco use Current smoker [facility] History of tobacco use Tobacco U se Types Packs/Day Years Used Date Smoking Tobacco: Former Vaping/E-cigarettes Smokeless Tobacco: [facility] Start: 03-28-2022 End: 08-27-2024 Tobacco use and exposure Smokeless tobacco [facility]-user [facility] Start: 06-26-2023 End: 11-16-2024 Alcohol intake Current non-drinker of alcohol (finding[facility] Frequency of Alcohol Consumption Never [facility] Goals Date Patient Goal Desired Activity /State Personal health goal Functional Status Date Assessment Result Facility 12-19-2022 Functional status Patient at Baseline [facility] Work Phone: Mental Status Date Assessment Result Facility 12-19-2022 Cognitive function Cognitive Sta tus Patient at Baseline [facility] Work Phone: Clinical Notes 11-13-2021 to 12-07-2024 Airam Murphy LPN - 12/07/2024 1:00 PM EDVíctor Murphy LPN - 11/30/2024 1:10 PM EDTMsusu Orourke MA - 11/23/2024 2:20 PM EDTMmartha Cook RN - 11/16/2024 2:30 PM EDT Note Date & Type Note Facility 12-07-2024 History of Present illness Narrative Reason for [...] history of trisomy 13 09/30/2023 Third trimester ([facility]) 11/23/2024 34 weeks gestation of ([facility]) 11/23/2024 Resolved Ambulatory Problems Diagnosis Date Noted [...] nursing note reviewed. Exam conducted with a mail delivery supervisor present. Vitals: Estimated body mass index is 27.6 kg/m as calculated from the following: Height as of 10/24/22: 5' 6 . Weight as of 11/23/24: 171 lb. BP: Patient's last menstrual period was 03/24/2024. ASSESSMENT & PLAN ICD-10-CM 1. Third trimester ([facility]) Z34.93 2. 36 weeks gestation of ([facility]) Z3A.36 Patient presents today for a routine obstetrics appointment. Patient is currently 36w6d with a Estimated Date of Delivery: 7/15/25. Patient has a nuchal Documented by Airam Murphy LPN on behalf of: Cuong Ortiz DO documented in this encounter [facility] 11-30-2024 History of Present illness Narrative Reason for [...] history of trisomy 13 09/30/2023 Third trimester ([facility]) 11/23/2024 34 weeks gestation of ([facility]) 11/23/2024 Resolved Ambulatory Problems Diagnosis Date Noted No Resolved Ambulatory Problems Past Medical History: Diagnosis Date Abscess ADD (attention deficit disorder) ADHD (attention deficit hyperactivity disorder) Anxiety Bacterial vaginosis Bipolar disorder ([facility]) Club foot Depression Female infertility Heart problem Hormone imbalance HISTORY PAST MEDICAL HISTORY SOCIAL HISTORY Past Medical History: Diagnosis Date Abscess ADD (attention deficit disorder) ADHD (attention deficit hyperactivity disorder) Anxiety Bacterial vaginosis Bipolar disorder ([facility]) Club foot Depression Female infertility Heart problem [...] nursing note reviewed. Exam conducted with a mail delivery supervisor present. Vitals: Estimated body mass index is 27.6 kg/m as calculated from the following: Height as of 10/24/22: 5' 6 . Weight as of 11/23/24: 171 lb. BP: Patient's last menstrual period was 03/24/2024. ASSESSMENT & PLAN ICD-10-CM 1. Third trimester ([facility]) Z34.93 POCT urinalysis dipstick manually resulted CULTURE, GROUP B STREP WITH SUSCEPTIBLITY 2. 35 weeks gestation of ([facility]) Z3A.35 Patient is doing well [...] week for routine OB appointment Documented by Ariam Murphy LPN on behalf of: Cuong Ortiz DO documented in this encounter [facility] 11-23-2024 History of Present illness Narrative Reason for [...] disorder) ADHD (attention deficit hyperactivity disorder) ([facility]) Anxiety Bacterial vaginosis Bipolar disorder Club foot Depression ([facility]) Female infertility Heart problem Hormone imbalance HISTORY PAST MEDICAL HISTORY SOCIAL HISTORY Past Medical History: Diagnosis Date Abscess ADD (attention deficit disorder) ADHD (attention deficit hyperactivity disorder) ([facility]) Anxiety Bacterial vaginosis Bipolar disorder Club foot Depression ([facility]) Female infertility Heart problem Heart Issue Hormone [...] nursing note reviewed. Exam conducted with a mail delivery supervisor present. Vitals: Estimated body mass index is 27.6 kg/m as calculated from the following: Height [...] Patient was seen by MFM on 11/16/24 and baby was measuring at least 4#'s. Follow Up: Patient is to return to office in 1-2 week for routine OB appointment. Documented by Airam Murphy LPN on behalf of: Cuong Ortiz DO documented in this encounter [facility] 11-16-2024 History of Present illness Narrative Headache/epigastric pain/blurry [...] provider today? No REASON FOR OFFICE VISIT: nadia cisterna magna. HISTORY OF PRESENT ILLNESS: Zuleika [...] kg (173 lb) LMP 03/24/2024 BMI 28.79 kg/m . Gravid abdomen, Respirations not labored. Normal gait well oriented in time place and person. RECOMMENDATION: 1. Nadia cisterna magna and the posterior fossa along [...] MALACHI MACDONALD MD documented in this encounter [employer] 11-10-2024 History of Present illness Narrative Reason for [...] disorder) ADHD (attention deficit hyperactivity disorder) ([facility]) Anxiety Bacterial vaginosis Bipolar disorder Club foot Depression (CMS/HCC) Female infertility Heart problem Hormone imbalance HISTORY PAST MEDICAL HISTORY SOCIAL HISTORY Past Medical History: Diagnosis Date Abscess ADD (attention deficit disorder) ADHD (attention deficit hyperactivity disorder) (CMS/HCC) Anxiety Bacterial vaginosis Bipolar disorder Club foot Depression (CMS/HCC) Female infertility Heart [...] nursing note reviewed. Exam conducted with a mail delivery supervisor present. Vitals: Estimated body mass index is 27.92 kg/m as calculated from the following: Height [...] times a day. Pt has ultrasound in [facility] on Saturday. Orders Placed This Encounter Procedures POCT urinalysis dipstick manually resulted Follow Up: Patient is to return to office in 2 week for routine OB appointment. Documented by Adela De Souza LPN on behalf of: Cuong Ortiz DO documented in this encounter [facility] 10-26-2024 History of Present illness Narrative Reason [...] disorder) ADHD (attention deficit hyperactivity disorder) ([facility]) Anxiety Bacterial vaginosis Bipolar disorder Club foot Depression ([facility]) Female infertility Heart problem Hormone imbalance HISTORY PAST MEDICAL HISTORY SOCIAL HISTORY Past Medical History: Diagnosis Date Abscess ADD (attention deficit disorder) ADHD (attention deficit hyperactivity disorder) ([facility]) Anxiety Bacterial vaginosis Bipolar disorder Club foot Depression ([facility]) Female infertility Heart problem Heart Issue Hormone [...] up transabdominal approach 3. Nadia cisterna magna ([facility]) Q04.9 US biophysical profile w non stress [...] orders for NST/BPP to be started at [facility] for SGA. Patient to return to clinic in 2 weeks. Documented by Airam Murphy LPN... on behalf of: Cuong Ortiz DO documented in this encounter [facility] 10-12-2024 History of Present illness Narrative [...] nursing note reviewed. Exam conducted with a mail delivery supervisor present. Vitals: Estimated body mass index is 27.16 kg/m as calculated from the following: Height as of 10/24/22: 5' 6 . Weight as of this encounter: 168 lb 4 oz. BP: 120/78 Patient's last menstrual period was 03/24/2024. ASSESSMENT & PLAN ICD-10-CM 1. Third trimester Z34.93 POCT urinalysis dipstick manually resulted 2. 28 weeks gestation of Z3A.28 3. Nadia cisterna magna (CMS/HCC) Q04.9 Patient presents today for a routine obstetrics appointment. Patient is currently 28w6d with a Estimated Date of Delivery: 12/29/24. Discussed patient recent [facility] visit. Patient to return to clinic in 2 weeks. Patient is to start NST/BPP/Growth at 32 weeks gestation. Patient has an appointment with [facility] at 32 or 33 weeks gestation. Growth scan to be done in office next week. Documented by Airam Murphy LPN on behalf of: Cuong Ortiz DO documented in this encounter [facility] 09-28-2024 History of Present illness Narrative [...] Yes Have you been seen here at [facility] in a previous ? Yes Recent ER visits or hospitalizations? No Bring blood sugar log or meter with you today? (Please bring them with you for every visit at [facility]) N/A Flu vaccine (Apr-August)? N/A Any [...] MALACHI MACDONALD MD [facility] History of Present illness Narrative Reason [...] nursing note reviewed. Exam conducted with a mail delivery supervisor present. Vitals: Estimated body mass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 Date End Date Unallocated, Juan Antonio Randall MD [address] [place] [address] PCP - General 03/04/23 Andie Wyatt PA [address] [place] [address] Referring Physician Physical Medicine and Rehabilitation 03/04/23 Bander And Cellophaner Machine Helper Relationship Specialty Start Date End Date Unallocated, Noms Prakash, MD Damaso GONZALEZ MIRE[facility] [address] PCP - General 03/04/23 Andie Wyatt PA [address] [place] [address] Referring Physician Physical Medicine and Rehabilitation 03/04/23 [...] 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 [employer] provides no warranty or guarantee of the accuracy or completeness of information in this document.
[2024-12-11 23:48] LABS: Bilirubin Urine NEGATIVE (NEGATIVE); Blood Urine NEGATIVE (NEGATIVE); Clarity Urine CLEAR (CLEAR); Color Urine LT. YELLOW (YELLOW); Glucose Urine UA NEGATIVE (NEGATIVE); Ketones Urine TRACE mg/dL (NEGATIVE); Leukocyte Esterase Urine SMALL (NEGATIVE); Nitrite Urine NEGATIVE (NEGATIVE); Protein Urine NEGATIVE (NEG/TRACE); Specific Gravity Urine 1.015 (1.005-1.025)
[2024-12-11 23:49] LABS: Urine Microscopic Indicated YES
[2024-12-11 23:58] LABS: Bacteria Urine MODERATE #/HPF (NONE SEEN); RBC Urine 0-2 #/HPF (0-2)
[2024-12-11 23:59] LABS: Amnisure NEGATIVE (NEGATIVE); Cast Seen? NONE SEEN #/LPF (NONE SEEN); Crystals Seen? None Seen #/HPF (None Seen); Internal Control Within Normal Limits; Mucus Urine MODERATE (NONE SEEN); Squamous Epithelial Cell Urine MANY #/LPF (NONE/RARE); Urine Culture Indicated YES-LC
[2024-12-12 01:00] VITALS: BP 127/67; PULSE 78
== END 2024-12-12 02:45 | disposition home or self-care (01) ==
PROVIDERS: Admitting Provider Family Medicine Addiction Medicine; PCP Family Medicine; Visit Provider Family Medicine Addiction Medicine
DX: O26.893 Other specified pregnancy related conditions, third trimester (principal); O47.9 False labor, unspecified; Z3A.00 Weeks of gestation of pregnancy not specified
CPT/HCPCS: 59025; 81001; 84112; 87086; G0378; G0379

== ENCOUNTER 2024-12-15 10:11 | Outpatient (OUT) | payer MEDICAID, SELFPAY ==
--- NOTE | 2024-12-15 | US_ITS ---
The [address] [address] Patient Name: ZULEIKA WADDELL MRN: [id number] date: 1990 Sex: F Assigned Patient Location: US Current Patient Location: Accession/Order Number: [id number] Exam Date: 12/15/2024 11:14 Report Date: 12/15/2024 11:15 At the request of: DAVE CUELLAR DO Procedure: US OB BPP w non-stress BIOPHYSICAL PROFILE: CLINICAL INFORMATION: Christiano cisterna magna Q04.9 COMPARISON: 12/08/2024 There is a single live intrauterine gestation in cephalic presentation. The reported gestational age is 38 weeks 0 days. The heart rate measures 134 beats per minute. FINDINGS: TONE: 1 or more episodes of activity extension and flexion of extremity or opening and closing of the hand [Y] 2/2 GROSS BODY MOVEMENTS: 3 or more discrete body or limb movements [Y] 2/2 BREATHING MOVEMENTS: 1 or more episodes of breathing lasting at least 30 seconds [Y] 2/2 ANURAG: A single deepest vertical pocket of amniotic fluid greater than 2 cm [Y] 2/2 ANURAG: 13.5 cm. This is normal. Total score: 8/8 US/ OB BPP w non-stress IMPRESSION: NORMAL BIOPHYSICAL PROFILE Impression dictated by: Adela Mahan M.D. 12/15/2024 11:15 AM Dictation Location: [place] [address] Electronically authenticated by: [id number] Y Date: 12/15/2024 11:15
[2024-12-15 10:32] VITALS: BP 124/78; PULSE 83
== END 2024-12-15 11:10 | disposition home or self-care (01) ==
LOC: US 10:11 → FBC 10:14
PROVIDERS: PCP Family Medicine; Visit Provider Obstetrics & Gynecology
DX: O26.893 Other specified pregnancy related conditions, third trimester (principal); Q04.9 Congenital malformation of brain, unspecified; Z3A.38 38 weeks gestation of pregnancy
CPT/HCPCS: 76818

== ENCOUNTER 2024-12-16 05:24 | Inpatient (IN) | payer MEDICAID, SELFPAY ==
--- OUTSIDE RECORDS SUMMARY | 2024-08-25 09:45 | XMS_ITS ---
Author Organization [facility] vices Address [address] [place], [place] [address] Care Team Providers Care Parimutuel Ticket Checker Name Role Phone Tiffany Petersen Primary Care Provider [phone] Ailyn Pringle [phone] REASON FOR VISIT Recall (A) 31 Social History Sex Assigned At : Social History Observation Description Sex Assigned At Female Encounters Encounter Location Date Provider Diagnosis Dental Main [address] [place], [place] [phone] 08/25/2024 Ailyn Pringle Plan Of Treatment No Information Progress Notes * Nadine WADDELLDOB: 2 (34 yo F)Acc No.[id number]:08/25/2024 Patient: Nadine BARRETT Provider: Bertin Pringle DMD :1990 A ge:34 Y S ex:Female Date:08/25/2024 Address:[address] [place] [address], [address] [facility]-[id number] Pcp:Tiffany Petersen Subjective: * Chief Complaints: * 1 . Recall (A) 31. * Medical History: Objective: * Vitals: Assessment: Plan: * Treatment: * Billing Information: * Visit Code: * Procedure Codes: * Electronic signature of Lilo Pringle DMD on 12/16/2024 at 05:27 AM EDT Sign off status: Pending * Provider: Bertin Pringle DMD Date: 0 08/25/2024 Generated for Vale coto/Judy/Kimberley on: 0 12/16/2024 05:27 AM EDT
--- OUTSIDE RECORDS SUMMARY | 2024-08-27 07:41 | XMS_ITS ---
Author Organization [facility] in [place] Address [address] [place] [address] Care Team Providers Care Financial Compliance Officer Name Role Phone Laron Avila Primary Care Provider REASON FOR VISIT meds Medications Medication SIG (Take, Route, Frequency, Duration) Notes Start Date End Date Status Triamcinolone Acetonide 0.1 % 1 application Externally BID PRN 08/27/2024 Active Acetaminophen Extra Strength 500 MG 1 or 2 tablets Orally every 6 hrs as needed for pain for 30 days 08/27/2024 Active Ventolin HFA 108 (90 Base) MCG/ACT 2 puffs as needed Inhalation QID 08/27/2024 Active Encounters Encounter Location Date Provider Diagnosis [address] [address] 08/27/2024 Laron Avila Plan Of Treatment Medication Medication Name Sig Start Date Stop Date Notes Triamcinolone Acetonide 0.1 % 1 applicat ion Externally BID PRN 08/27/2024 Acetaminophen Extra Strength 500 MG 1 or 2 tablets Orally every 6 hrs as needed for pain for 30 days 08/27/2024 Ventolin HFA 108 (90 Base) MCG/ACT 2 puffs as needed Inhalation QID 08/27/2024 Progress Notes * Nadine WADDELL LDOB: [birth year] (34 yo F)Acc No.[id number]:08/27/2024 Patient: Nadine BARRETT Nishant :1990 A ge:34 Y S ex:Female Address:[address], [place] [address] * Refills Start Ventolin HFA Aerosol Solution, 108 (90 Base) MCG/ACT, Inhalation, 1 Each, 2 puffs as needed, QID, Refills=3 Start Triamcinolone Acetonide Cream, 0.1 %, Externally, 1 Each, 1 application, BID PRN, Refills=0 Start Acetaminophen Extra Strength Tablet, 500 MG, Orally, 240, 1 or 2 tablets, every 6 hrs as needed for pain, 30 days, Refills=0 * true * Date: Generated for Vale coto/Judy/Faisalitting on: 0 12/16/2024 05:26 AM EDT
--- OUTSIDE RECORDS SUMMARY | 2024-08-28 07:32 | XMS_ITS ---
Author Organization The [facility] in [place] Address [address] [place] [address] Care Team Providers Care Professor Of Industrial Technology Name Role Phone Laron Avila Primary Care Provider REASON FOR VISIT epi pen Medications Medication SIG (Take, Route, Frequency, Duration) Notes Start Date End Date Status EpiPen 2-Long 0.3 MG/0.3ML as directed In jection once prn 08/28/2024 Active Encounters Encounter Location Date Provider Diagnosis [address] [address] 08/28/2024 Laron Avila Plan Of Treatment Medication Medication Name Sig Start Date Stop Date Notes EpiPen 2-Long 0.3 MG/0.3ML as directed Injection once prn 0 08/28/2024 Progress Notes * Nadine WADDELL LDOB: [birth year] (34 yo F)Acc No.[id number]:08/28/2024 Patient: Nadine BARRETT :1990 A ge:34 Y S ex:Female Address:[address] [place] [address], [address] [address] * Refills Start EpiPen 2-Long Solution Auto-injector, 0.3 MG/0.3ML, Injection, 1, as directed, once prn, Refills=11 * true * Date: Generated for Printi ng/Faxing/eTransmitting on: 0 12/16/2024 05:27 AM EDT
--- OUTSIDE RECORDS SUMMARY | 2024-09-11 06:30 | XMS_ITS ---
Author Organization [facility] vices Address [address] [place], [place] [id number] Care Team Providers Care Stress Engineer Name Role Phone TrinityMaryanaTiffany Primary Care Provider Ailyn Pringle [phone] REASON FOR VISIT Recall (A) 32 Medications [...] Location Date Provider Diagnosis Dental Main [address] [place], [place] [id number] 09/11/2024 Ailyn Pringle Plan Of Treatment No Information Progress Notes * Nadine WADDELLDOB: 2 (34 yo F)Acc No.[id number]:09/11/2024 Patient: Nadine BARRETT Provider: Bertin Pringle DMD :1990 A ge:34 Y S ex:Female Date:09/11/2024 Address:[address], [id number] Pcp:Tiffany Petersen Subjective: * Chief Complaints: * 1 . Recall (A) 32. * Medical History: * Medications: T evan Givensan , Taking Acetaminophen 500 MG Tablet 2 [...] Date: 09/11/2024 Generated for Vale coto/Judy/Kimberley on: 12/16/2024 05:27 AM EDT
--- OUTSIDE RECORDS SUMMARY | 2024-09-23 09:05 | XMS_ITS ---
Author Organization The [facility] in [place] Address [address] [place] [id number] Care Team Providers Care Sleep Technologist Name Role Phone Laron Avila Primary Care Provider REASON FOR VISIT ER- check on Encounters Encounter Location Date Provider Diagnosis [address] [address] 09/23/2024 Laron Avila Plan Of Treatment No Information Progress Notes * WADDELL Nadine LDOB: [birth year] (34 yo F)Acc No.[id number]:09/23/2024 Patient: Nadine BARRETT :1990 A ge:34 Y S ex:Female Address:[address] [address], [address] [id number] * true * Date: Generated for Vlae coto/Judy/eTransmitting on: 0 12/16/2024 05:26 AM EDT
--- OUTSIDE RECORDS SUMMARY | 2024-11-30 13:10 | XMS_ITS | Encounter Summary ---
Author Organization [facility] Address [address] [facility] [place] [address] Care Team Providers Care Business Intelligence Analyst Name Role Phone Yoselin Jaime FERMIN Unavailable Unallocated, Noms Provider Primary Care Provi kwabena Reason for Visit * Reason Comments Routine Visit Encounter Details Date Type Department Care Team (Late st Contact Info) Description 11/30/2024 1:10 PM EDT Routine [facility] B[facility] OB [address] [place] [phone] Cuong Ortiz, DO [address] [facility] [address] Derek [place], [facility]11 Third trimester ([facility]); 35 weeks gestation of ([facility]) Social History Tobacco Use Types Packs/Day Years Used Date Smoking Tobacco: Never Alcohol Use Standard Drinks/Week Comments Never 0 (1 standard drink = 0.6 oz pur e alcohol) PHQ-2 Answer Date Recorded Patient Health Questionnaire-2 Score 0 12/10/2024 Estimated Date of Delivery Comme nts Yes 12/29/2024 Based on last me nstrual period of 03/24/2024 Sex and Gender Information Value Date Recorded Sex Assigned at Not on file Legal Sex Female 11:47 PM EDT Gender Identity Not on file Sexual Orientation Not on file documented as of this encounter Last Filed Vital Signs Vital Sign Reading Time Taken Comments Blood Pressure 116/82 12/03/2024 9:43 AM EDT Pulse - - Temperature - - Respiratory Rate - - Oxygen Saturation - - Inhaled Oxygen Concentration - - Weight 77.3 kg (170 lb 8 oz) 12/03/2024 9:43 AM EDT Height - - Body Mass Index 27.52 10/24/2022 12:00 PM EDT documented in this encounter Functional Status * Over the past 2 weeks, how often have you been bothered by any of the following problems? Question Answer Date of Assessment Author Little interest or pleasure in doing things Not at all 12/10/2024 3:44 PM EDT Elena Felix LPN Feeling down, depressed, or hopeless Not at all 12/10/2024 3:44 PM EDT Elena Felix LPN Patient Health Questionnaire -2 Score 0 12/10/2024 3:44 PM EDT Elena Felix LPN documented as of this encounter Progress Notes [...] history of trisomy 13 09/30/2023 Third trimester ([facility]) 11/23/2024 34 weeks gestation of ([facility]) 11/23/2024 Resolved Ambulatory Problems Diagnosis Date Noted [...] nursing note reviewed. Exam conducted with a automotive service director present. Vitals: Estimated body mass index is 27.6 kg/m² as calculated from the following: Height as of 10/24/22: 5' 6 . Weight as of 11/23/24: 171 lb. BP: Patient's last menstrual period was 03/24/2024. ASSESSMENT & PLAN ICD-10-CM 1. Third trimester ([facility]) Z34.93 POCT urinalysis dipstick manually resulted CULTURE, GROUP B STREP WITH SUSCEPTIBLITY 2. 35 weeks gestation of ([facility]) Z3A.35 Patient is doing well but has [...] documented in this encounter Plan of Treatment Scheduled Orders Name Type Priority Associated Diagnoses Orde r Schedule CULTURE, GROUP B STREP WITH SUSCEPTIBLITY Lab Routine Third trimester ([facility]) Expected: 11/30/2024, Expires: 11/30/2025 documented as of this encounter Goals Goal Patient Goal Type Associated Problems Recent Progress Patient-Stated? Author Reminders Care Plan OB Reminders No Open Scheduling, Background documented as of this encounter Procedures Procedure Name Priority Date/Time Associated Diagnosis Comments POCT URINALYSIS DIPSTICK Routine 11/30/2024 2:02 PM EDT Third trimester ([facility]) documented in this encounter Results * (ABNORMAL) POCT urinalysis dipstick manually resulted (11/30/2024 2:02 PM EDT) Color, UA Yellow Clarity, UA Clear Glucose, UA Negative Negative - 1999(110) ++++ mg/dL Bilirubin, UA Negative Negative - [...] this encounter Visit Diagnoses Diagnosis Third trimester ([facility]) state, incidental 35 weeks gestation of ([facility]) documented in this encounter Additional Health Concerns Active Problems Noted Date Diagnosed Date OB Reminders 06/23/2024 documented as of this encounter Care Teams Business Intelligence Analyst Relationship Specialty Start Date End Date Unallocated, Noms MD Prakash [address] [place] [address] PCP - General 03/04/23 Jaime Wyatt PA [address] [place] [address] Referring Physician Physical Medicine and Rehabilitation 03/04/23 documented as of this encounter
--- OUTSIDE RECORDS SUMMARY | 2024-12-07 13:00 | XMS_ITS | Encounter Summary ---
Author Organization [facility] Address [address] [facility] [place] [address] Care Team Providers Care Film Maker Name Role Phone Yoselin Jaime FERMIN Unavailable Unallocated, Noms Provider Primary Care Provi kwabena Reason for Visit * Reason Comments Routine Visit Encounter Details Date Type Department Care Team (Late st Contact Info) Description 12/07/2024 1:00 PM EDT Routine [facility] OB [address] [place] [phone] Cuong Ortiz, DO [address] [facility] [address] [place], [facility] Third trimester ([facility]); 36 weeks gestation of ([facility]) Social History Tobacco Use Types [...] Sign Reading Time Taken Comments Blood Pressure 126/87 12/14/2024 10:50 AM EDT Pulse - - Temperature - - Respiratory Rate - - Oxygen Saturation - - Inhaled Oxygen Concentration - - Weight 77.6 kg (171 lb 2 oz) 12/07/2024 1:38 PM EDT Height - - Body Mass Index 27.62 10/24/2022 12:00 PM EDT documented in this [...] Progress Notes * Airam Murphy LPN - 12/07/2024 1:00 PM EDT Reason for Appointment: Patient ID: [...] history of trisomy 13 09/30/2023 Third trimester ([facility]) 11/23/2024 34 weeks gestation of ([facility]) 11/23/2024 Resolved Ambulatory Problems Diagnosis [...] nursing note reviewed. Exam conducted with a workday director present. Vitals: Estimated body mass index is 27.6 kg/m² as calculated from the following: Height as of 10/24/22: 5' 6 . Weight as of 11/23/24: 171 lb. BP: Patient's last menstrual period was 03/24/2024. ASSESSMENT & PLAN ICD-10-CM 1. Third trimester ([facility]) Z34.93 2. 36 weeks gestation of ([facility]) Z3A.36 Patient presents today for a routine obstetrics appointment. Patient is currently 36w6d with a Estimated Date of Delivery: 12/29/24. Patient has a nuchal cord and will have induction of laboron 12/16/24 @0500. Patient signed consents and Dr. Ortiz called [facility] and spoke with Diann and placed patient on the books. Patient to continue with NST/BPP and return to clinic in 1 week. Documented by Airam Murphy LPN on behalf of: Cuong Ortiz DO documented in this encounter Plan of Treatment Not on file documented as of this encounter Goals Goal Patient Goal Type Associated Problems Recent Progress Patient-Stated? Author Reminders Care Plan OB Reminders No Open Scheduling, Background documented as of this encounter Visit Diagnoses Diagnosis Third trimester ([facility]) state, incidental 36 weeks gestation of ([facility]) documented in this encounter Additional Health Concerns Active Problems Noted Date Diagnosed Date OB Reminders 06/23/2024 documented as of this encounter Care Teams Film Maker Relationship Specialty Start Date End Date Unallocated, Noms Provider, [address] [place], [place] [id number] PCP - General 03/04/23 Jaime Wyatt PA [address] [place] [address] Referring Physician Physical Medicine and Rehabilitation 03/04/23 documented as of this encounter
--- OUTSIDE RECORDS SUMMARY | 2024-12-14 10:00 | XMS_ITS | Encounter Summary ---
Author Organization [facility] Address [address] [facility] [place] [address] Care Team Providers Care Package Handler Name Role Phone YoselinJaime FERMIN Unavailable Unallocated, Noms Provider Primary Care Provi kwabena Reason for Visit * Reason Comments Routine Visit Encounter Details Date Type Department Care Team (Late st Contact Info) Description 12/14/2024 10:00 AM EDT Routine [facility] [address] [place] [phone] Cuong Ortiz, DO [address] [facility] [place], [id number] Third trimester ([facility]); 37 weeks gestation of ([facility]); Christiano cisterna magna ([facility]) Social History Tobacco Use Types Packs/Day [...] Sign Reading Time Taken Comments Blood Pressure 118/82 12/14/2024 10:45 AM EDT Pulse - - Temperature - - Respiratory Rate - - Oxygen Saturation - - Inhaled Oxygen Concentration - - Weight 79 kg (174 lb 4 oz) 12/14/2024 10:45 AM E DT Height - - Body Mass Index 28.12 10/24/2022 12:00 PM EDT documented in this encounter Progress Notes * Adelarima De Souza LPN - 12/14/2024 10:00 AM EDT Reason for Appointment: Patient ID: [...] history of trisomy 13 09/30/2023 Third trimester ([facility]) 11/23/2024 34 weeks gestation of ([facility]) 11/23/2024 Resolved Ambulatory Problems Diagnosis Date Noted No Resolved Ambulatory Problems Past Medical History: Diagnosis Date Abscess ADD (attention deficit disorder) ADHD (attention deficit hyperactivity disorder) Anxiety Bacterial vaginosis Bipolar disorder ([facility]) Club foot Depression Female infertility Heart problem [...] nursing note reviewed. Exam conducted with a military lawyer present. Vitals: Estimated body mass index is 28.12 kg/m² as calculated from the following: Height as of 10/24/22: 5' 6 . Weight as of this encounter: 174 lb 4 oz. BP: 118/82 Patient's last menstrual period was 03/24/2024. ASSESSMENT & PLAN ICD-10-CM 1. Third trimester ([facility]) Z34.93 POCT urinalysis dipstick manually resulted 2. 37 weeks gestation of ([facility]) Z3A.37 3. 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 Patient is currently 37w6d . Patient states she is doing well but has complaints of being tired due to current . Patient has verbalizes frequent movement. labor precautions was discussed/given and patient was instructed to perform kick counts three times a day. Pt very ouchy in office, advised to go to [facility] if contractions continue to increase in intensity. Pt to be induced on 12/16/24 at 0500. Orders Placed This Encounter Procedures POCT urinalysis dipstick manually resulted Follow Up: Patient is to return to office in 1 week for routine OB appointment. Documented by [...] Associated Diagnosis Comments POCT URINALYSIS DIPSTICK Routine 12/14/2024 10:55 AM EDT Third trimester (HHS-HCC) documented in this encounter Results * (ABNORMAL) POCT urinalysis dipstick manually resulted (12/14/2024 10:55 AM EDT) Color, UA Yellow Clarity, UA Clear Glucose, UA Negative Negative - 2000(110) ++++ mg/dL Bilirubin, UA Negative Negative - 4(70) +++ mg/dL Ketones, UA Negative Negative - 160(16) ++++ mg/dL Spec Grav, UA 1.015 1 - 1.03 Blood, UA Negative Negative - 50 Rakesh/mcL pH, UA 6.5 5 - 9 Protein, UA Negative Negative - 2000(20) ++++ mg/dL Urobilinogen, UA 0.2 0.2 - 12 mg/dL Leukocytes, UA Trace Negative - 500+++ Matti/mcL Nitrite, UA Negative Negative - Positive Urine 12/14/2024 10:5 5 AM EDT us Cuong Ortiz DO POINT OF CARE TEST ENTER/EDIT OR DERABLES Final Result documented in this encounter Visit Diagnoses Diagnosis Third trimester (HHS-HCC) state, incidental 37 weeks gestation of (HHS-HCC) Christiano cisterna magna (HCC) documented in this encounter Additional Health Concerns Active Problems Noted Date Diagnosed Date OB Reminders 06/23/2024 documented as of this encounter Care Teams Package Handler Relationship Specialty Start Date End Date Unallocated, Noms Provider, [address] [place], [place] [id number] PCP - General 03/04/23 Jaime Wyatt PA [address] [place], [place] [phone] Referring Physician Physical Medicine and Rehabilitation 03/04/23 documented as of this encounter
[2024-12-16] VITALS (32 sets, daily range): BP systolic 104–184; BP diastolic 56–98; PULSE 68–141; TEMP 36–37.1
--- OUTSIDE RECORDS SUMMARY | 2024-12-16 05:26 | XMS_ITS | Encounter Summary ---
Author Organization [facility] Address [address] [facility] [place] [address] Care Team Providers Care Specialist Icu Name Role Phone Jaime Wyatt Unavailable Unallocated, Noms Provider Primary Care Provi kwabena Encounter Details Date Type Department Care Team (Late st Contact Info) Description 11/16/2024 Abstract [facility] [address] [place] [address] Cuong Ortiz, DO [address] [place] [address] Social History Tobacco Use Types Packs/Day Years [...] documented as of this encounter Care Teams Specialist Icu Relationship Specialty Start Date End Date Unallocated, Noms Provider, [address] [place] [address] PCP - General 03/04/23 Jaime Wyatt PA [address] [place], [place] [phone] Referring Physician Physical Medicine and Rehabilitation 03/04/23 documented as of this encounter
--- OUTSIDE RECORDS SUMMARY | 2024-12-16 05:26 | XMS_ITS | Encounter Summary ---
Author Organization [facility] Address [address] [facility] [place] [address] Care Team Providers Care Tablet Technician Name Role Phone Jaime Wyatt Unavailable Unallocated, Noms Provider Primary Care Provi kwabena Encounter Details Date Type Department Care Team (Late st Contact Info) Description 08/28/2024 Abstract [facility] [address] [place] [address] Cuong Ortiz, DO [address] [place] [address] Social History Tobacco Use Types Packs/Day Years [...] documented as of this encounter Care Teams Tablet Technician Relationship Specialty Start Date End Date Unallocated, Noms Provider, [address] [place] [address] PCP - General 03/04/23 Jaime Wyatt PA [address] [place], [place] [id number] Referring Physician Physical Medicine and Rehabilitation 03/04/23 documented as of this encounter
--- OUTSIDE RECORDS SUMMARY | 2024-12-16 05:27 | XMS_ITS | Encounter Summary ---
Author Organization [facility] Address [address] [facility] [place] [address] Care Team Providers Care Social Insurance Administrator Name Role Phone Jaime Wyatt Unavailable Unallocated, Noms Provider Primary Care Provi [facility] Encounter Details Date Type Department Care Team (Late st Contact Info) Description 12/13/2023 Abstract [facility] OB [address] [place] [address] Destinee Vazquez LPN [address] [place] [address] [place] [address] Social History Tobacco Use Types Packs/Day Years [...] on filedocumented in this encounter Care Teams Social Insurance Administrator Relationship Specialty Start Date End Date Unallocated, Noms Provider, [address] [place] [address] PCP - General 03/04/23 Jaime Wyatt PA [address] [place] [address] Referring Physician Physical Medicine and Rehabilitation 03/04/23 documented as of this encounter
--- OUTSIDE RECORDS SUMMARY | 2024-12-16 05:27 | XMS_ITS | Encounter Summary ---
Author Organization [facility] Address [address] [facility] [place] [address] Care Team Providers Care Parts Counter Sales Person Name Role Phone Yoselin Jaime FERMIN Unavailable Unallocated, Noms Provider Primary Care Provi kwabena Encounter Details Date Type Department Care Team (Late st Contact Info) Description 06/26/2024 Abstract [facility] OB [address] [place] [address] Cuong Ortiz, DO [address] [facility] [place] [address] Social History Tobacco Use Types Packs/Day Years [...] documented as of this encounter Care Teams Parts Counter Sales Person Relationship Specialty Start Date End Date Unallocated, Noms ProviderMD [address] [place] [address] PCP - General 03/04/23 Jaime Wyatt PA [address] [place] [address] Referring Physician Physical Medicine and Rehabilitation 03/04/23 documented as of this encounter
--- OUTSIDE RECORDS SUMMARY | 2024-12-16 05:27 | XMS_ITS | Encounter Summary ---
Author Organization [facility] Address [address] [place] [address] Care Team Providers Care Wind Operations Supervisor Name Role Phone Yoselin Jaime FERMIN Unavailable Unallocated, Noms Provider Primary Care Provi kwabena Encounter Details Date Type Department Care Team (Late st Contact Info) Description 12/10/2024 Patient Outreach [facility] [address] [place] [id number] Elena Felix LPN [address] [place] [address] Social History Tobacco Use Types Packs/Day Years [...] documented as of this encounter Care Teams Wind Operations Supervisor Relationship Specialty Start Date End Date Unallocated, Noms Provider, [address] [place], [place] [id number] PCP - General 03/04/23 Jiame Wyatt PA [address] [place] [address] Referring Physician Physical Medicine and Rehabilitation 03/04/23 documented as of this encounter
--- OUTSIDE RECORDS SUMMARY | 2024-12-16 05:27 | XMS_ITS | Clinical Summary ---
Author Organization [facility] Address [address] [place] [address] Care Team Providers Care Child Development Instructor Name Role Phone Jaime Waddell FERMIN Unavailable Unallocated, Noms Provider Primary Care [...] Plus Multivitamin) 27-1 MG tabletIndication s:First trimester ([facility]) Take 1 tablet by mouth Daily 30 tablet 11 04/29/2024 Active EPINEPHrine (Epipen) 0.3 MG/0.3ML injection syringe 08/29/2024 Active Flonase Allergy Relief 50 MCG/ACT nasal spray 1 (one) time each day at the same time 06/04/2024 Active loratadine (Claritin) 10 MG tablet 1 (one) time each day at the same time 06/04/2024 Active Active Problems Problem Noted Date Diagnosed Date Third trimester ([facility]) 11/23/2024 34 weeks gestation of ([facility]) 2024 Family history of trisomy 13 09/30/2023 Estimated Date of Delivery Comme nts Yes 12/29/2024 Based on last me nstrual period of 03/24/2024 Encounters Date Type Department Care Team Description 12/15/2024 Clinisync Result Encounter [facility] External Department Unsolicited Dave Ortiz, 12/14/2024 10:00 AM EDT Routine [facility] [place] [address] [place] [address] Dave Ortiz, Third trimester ([facility]); 37 weeks gestation of ([facility]); Nadia cisterna magna ([facility]) 12/14/2024 Bamboo flowsheet [facility] [place] [address] [place] [address] Dave Ortiz, 12/10/2024 Patient Outreach [facility] [address] [place] [address] Elena Felix LPN 12/08/2024 Clinisync Result Encounter [facility] External Department Unsolicited Dave Ortiz, 12/07/2024 1:00 PM EDT Routine [facility] [place] [address] [place] [address] Dave Ortiz, Third trimester ([facility]); 36 weeks gestation of ([facility]) 12/07/2024 Abstract [facility] [place] [address] [place] [address] Airam Murphy LPN 12/07/2024 Bamboo flowsheet [facility] [place] [address] [place] [address] Dave Ortiz, 12/01/2024 Clinisync Result Encounter [facility] External Department Unsolicited Dave Ortiz DO 12/01/2024 Clinisync Result Encounter [facility] External Department Unsolicited Dave Ortiz, DO 11/30/2024 1:10 PM EDT Routine [facility] [address] [place] [address] Dave Ortiz, DO Third trimester ([facility]); 35 weeks gestation of ([facility]) 11/30/2024 Abstract [facility] [address] [place] [address] Dave Ortiz, DO 11/30/2024 Bamboo flowsheet [facility] [address] [place] [address] Dave Ortiz, DO 11/24/2024 Clinisync Result Encounter [facility] External Department Unsolicited Dave Ortiz, DO 11/23/2024 2:20 PM EDT Routine [facility] [address] [place] [address] Dave Ortiz, DO Third trimester ([facility]); 34 weeks gestation of ([facility]) 11/23/2024 Bamboo flowsheet [facility] [address] [place] [address] Dave Ortiz, DO 11/17/2024 Clinisync Result Encounter [facility] External Department Unsolicited Dave Ortiz, DO 11/17/2024 Abstract [facility] [address] [place] [address] Dave Ortiz, DO 11/16/2024 Abstract [facility] [address] [place] [address] Dave Ortiz, DO 11/12/2024 Patient Outreach [facility] [place] [address] Elena Felix LPN 11/10/2024 11:00 AM EDT Routine [facility] [address] [place] [address] Dave Ortiz, DO 33 weeks gestation of ([facility]); Third trimester ([facility]) 11/10/2024 Clinisync Result Encounter [facility] External Department Unsolicited Dave Ortiz, DO 11/10/2024 Bamboo flowsheet [facility] OB [address] [facility] [place] [address] Dvae Ortiz, DO 11/06/2024 Clinisync Result Encounter [facility] External Department Unsolicited DianaDave, DO 11/03/2024 Clinisync Result Encounter [facility] External Department Unsolicited DianaDave, DO 11/03/2024 Clinisync Result Encounter [facility] External Department Unsolicited Dave Ortiz, DO 10/26/2024 11:20 AM EDT Routine [facility] OB [address] [place] [address] [place] [address] Dave Ortiz, DO 30 weeks gestation of ([facility]); Third trimester ([facility]); Nadia cisterna magna ([facility]); 28 weeks gestation of ([facility]); SGA (small for gestational age) ([facility]) 10/26/2024 Clinisync Result Encounter [facility] External Department Unsolicited Dave Ortiz, DO 10/26/2024 Bamboo flowsheet [facility] OB [address] [place] [address] [place] [address] Dave Ortiz, DO 10/20/2024 Telephone [facility] OB [address] [place] [address] [place] [address] Dave Ortiz, DO 10/19/2024 11:30 AM EDT Ancillary Procedure [facility] OB [address] [place] [address] [place] [address] Nadia cisterna magna (HCC) 10/18/2024 Travel 10/12/2024 9:20 AM EDT Routine [facility] OB [address] [place] [address] [place] [address] Dave Ortiz DO Third trimester ([facility]); 28 weeks gestation of ([facility]); Nadia cisterna magna (HCC) 10/12/2024 Patient Outreach [facility] [address] [place] [address] Elena Felix, POWER SHOVEL OPERATOR 10/12/2024 Bamboo flowsheet [facility] [address] [place] [address] Dave Ortiz DO 09/29/2024 Orders Only [facility] [address] [place] [address] Destinee Vazquez, [facility] 09/29/2024 Abstract [facility] [address] [place] [address] Dave Ortiz DO from Last 3 [...] oz) 12/14/2024 10:45 AM E DT Height 167.6 cm (5' 6 ) 10/24/2022 12:00 PM EDT Body Mass Index 28.12 10/24/2022 12:00 PM EDT Plan of Treatment Health Maintenance Due Date Last Done Comments Influenza Vaccine (#1) 2025 05/19/2013, 2011 Pap Smear 09/11/2027 09/10/2024, 10/24/2022 Cervical Cancer Screening 10/25/2027 HPV/Cotest 10/25/2027 Goals Goal Patient Goal Type Associated Problems Recent Progress Patient-Stated? Author Reminders Care Plan OB Reminders No Open Scheduling, Background Procedures Procedure Name Priority Date/Time Associated Diagnosis Comments US OB BPP W NON-STRESS 12/15/2024 11:15 AM EDT POCT URINALYSIS DIPSTICK Routine 12/14/2024 10:55 AM EDT Third trimester ([facility]) US OB BPP W NON-STRESS 12/08/2024 11:51 AM EDT US OB GROWTH 12/01/2024 11:12 AM EDT US OB BPP W NON-STRESS 12/01/2024 11:12 AM EDT POCT URINALYSIS DIPSTICK Routine 11/30/2024 2:02 PM EDT Third trimester ([facility]) US OB BPP W NON-STRESS 11/24/2024 9:42 AM EDT POCT URINALYSIS DIPSTICK Routine 11/23/2024 2:58 PM EDT Third trimester ([facility]) US OB BPP W NON-STRESS 11/17/2024 10:17 AM EDT POCT URINALYSIS DIPSTICK Routine 11/10/2024 10:32 AM EDT 33 weeks gestation of ([facility]) Third trimester ([facility]) US OB BPP W NON-STRESS 11/10/2024 10:08 AM EDT US OB BPP W NON-STRESS 11/06/2024 2:00 PM EDT US OB GROWTH 11/03/2024 4:34 PM EDT US OB BPP W NON-STRESS 11/03/2024 3:31 PM EDT ALL CBC WITH AUTO DIFF Routine 12:52 PM EDT [facility] CMP (CMP) (FOR REMOTE [facility] USE) Routine 10/26/2024 12:52 PM EDT POCT URINALYSIS DIPSTICK Routine 10/26/2024 11:52 AM EDT 30 weeks gestation of ([facility]) Third trimester ([facility]) US OB FOLLOW UP TRANSABDOMINAL APPROACH Routine 10/19/2024 11:56 AM EDT Nadia cisterna magna (HCC) POCT URINALYSIS DIPSTICK Routine 10/12/2024 9:39 AM EDT Third trimester ([facility]) PAP SMEAR Routine 09/10/2024 12:00 AM EDT from Last 3 Months or Most Recently Relevant to Health Maintenance Results * US OB BPP W NON-STRESS (12/15/2024 11:15 AM EDT) Only the most recent of8 resultswithin the time period is included. Anatomical Region Laterality Modality Other 12/15/2024 11:1 5 AM EDT Narrative 12/15/2024 11:18 [place] [address] Ultrasound Report Signed Patient: ZULEIKA WADDELL MR#: [id number] : 1990 Acct:[id number] Age/Sex: 34 / F ADM Date: 12/15/24 Loc: US Attending Dr: Dave Ortiz D.O. Ordering Physician: Dave Ortiz D.O. Date of Service: 12/15/24 Procedure(s): US OB BPP w non-stress Accession Number(s): [id number] cc: Dave Ortiz D.O.; Ramon Avila M.D. [place] [address] Patient Name: ZULEIKA WADDELL MRN: [id number] date: 1990 Sex: F Assigned Patient Location: US Current Patient Location: Accession/Order Number: [id number] Exam Date: 12/15/2024 11:14 Report Date: 12/15/2024 11:15 At the request of: DAVE ORTIZ DO Procedure: US OB BPP w non-stress BIOPHYSICAL PROFILE: CLINICAL INFORMATION: Nadia cisterna magna Q04.9 COMPARISON: 12/08/2024 There is a single live intrauterine gestation in cephalic presentation. The reported gestational age is 38 weeks 0 days. The heart rate measures [...] greater than 2 cm [Y] 2/2 ANURAG: 13.5 cm. This is normal. Total score: 8/8 US/US OB BPP w non-stress IMPRESSION: NORMAL BIOPHYSICAL PROFILE Impression dictated by: Adela Mahan M.D. 12/15/2024 11:15 AM Dictation Location: [place] [address] Electronically authenticated by: [id number] Y Date: 12/15/2024 11:15 Dictated By: Adela Mahan M.D. Signed By: 12/15/24 1118 DD/ 111 TD/TT: Clinical Medical Transcriptionist: Procedure Note Radiology, Radiologist, - 12/15/2024 [place] [address] Ultrasound Report Signed Patient: ZULEIKA WADDELL LMR#: [id number] : 1990Acct:[id number] Age/Sex: 34 / FADM Date: 12/15/24 Loc: US Attending Dr: Dave Ortiz D.O. Ordering Physician: Dave Ortiz D.O. Date of Service: 12/15/24 Procedure(s): OB BPP w non-stress Accession Number(s): [id number] cc: Dave Ortiz D.O.; Ramon Avila M.D. [place] [address] Patient Name: ZULEIKA WADDELL MRN: [id number] date: 1990 Sex: F Assigned Patient Location: US Current Patient Location: Accession/Order Number: [id number] Exam Date: 12/15/2024 11:14 Report Date: 12/15/2024 11:15 At the request of: DAVE ORTIZ DO Procedure: US OB BPP w non-stress BIOPHYSICAL PROFILE: CLINICAL INFORMATION: Nadia cisterna magna Q04.9 COMPARISON: 12/08/2024 There is a single live intrauterine gestation in cephalic presentation.The reported gestational age is 38 weeks 0 days. The heart ratemeasures 134 [...] greater than 2 cm [Y] 2/2 ANURAG: 13.5 cm. This is normal. Total score: 8/8 US/US OB BPP w non-stress IMPRESSION: NORMAL BIOPHYSICAL PROFILE Impression dictated by: Adela Mahan M.D. 12/15/2024 11:15 AM Dictation Location: [place] [address] Electronically authenticated by: [id number] Y Date: 1:15 Dictated By: Adela Mahan M.D. Signed By:12/15/24 1118 DD/ 1115 TD/TT: Clinical Medical Transcriptionist: Dave Ortiz DO [facility] Final Result * (ABNORMAL) POCT urinalysis dipstick manually resulted (12/14/2024 10:55 AM EDT) Only the most recent of6 [...] Positive Urine 12/14/2024 10:5 5 AM EDT Dave Ortiz DO POINT OF CARE TEST ENTER/EDIT OR DERABLES Final Result * US OB GROWTH (12/01/2024 11:12 AM EDT) Only the most recent of2 resultswithin the time period is included. Anatomical Region Laterality Modality Other 12/01/2024 11:1 2 AM EDT Narrative 12/01/2024 11:15 AM EDT [address] [address] Ultrasound Report Signed Patient: ZULEIKA WADDELL MR#: [id number] : 1990 Acct:[id number] Age/Sex: 34 / F ADM Date: 12/01/24 Loc: US Attending Dr: Dave Ortiz D.O. Ordering Physician: Dave Ortiz D.O. Date of Service: 12/01/24 Procedure(s): US OB growth Accession Number(s): [id number] cc: Dave Ortiz D.O.; Ramon Avlia M.D. [place] [id number] Patient Name: ZULEIKA WADDELL MRN: [id number] date: 1990 Sex: F Assigned Patient Location: [facility] Current Patient Location: Accession/Order Number: [id number] Exam Date: 12/01/2024 11:04 Report Date: 12/01/2024 [...] Mahan M.D. 12/01/2024 11:12 AM Dictation Location: [id number] Electronically authenticated by: [id number] Y Date: 12/01/2024 11:12 Dictated By: Adela Mahan M.D. Signed By: 12/01/24 1115 DD/ 1112 TD/TT: Clinical Medical Transcriptionist: Procedure Note Radiology, Radiologist, - 12/01/2024 [place] [address] Ultrasound Report Signed Patient: ZULEIKA WADDELL LMR#: [id number] : 1990Acct:[id number] Age/Sex: 34 / FADM Date: 12/01/24 Loc: US Attending Dr: Dave Ortiz D.O. Ordering Physician: Dave Ortiz D.O. Date of Service: 12/01/24 Procedure(s): US OB growth Accession Number(s): [id number] cc: Dave Ortiz D.O.; Ramon Avila M.D. The [place] [id number] Patient Name: ZULEIKA WADDELL MRN: [id number] date: 1990 Sex: F Assigned Patient Location: [facility] Current Patient Location: Accession/Order Number: [id number] Exam Date: 12/01/2024 11:04 Report Date: 12/01/2024 [...] 12/01/2024 11:12 AM Dictation Location: [place] [address] Electronically authenticated by: [id number] Y Date: 1:12 Dictated By: Adela Mahan M.D. Signed By:12/01/24 1115 DD/ 1112 TD/TT: Clinical Medical Transcriptionist: us Dave Diana DO [facility] Final Result * (ABNORMAL) [facility] CMP (CMP) (FOR REMOTE [facility] USE) (10/26/2024 12:52 PM EDT) SODIUM 134(L) 136 - 145 mmol/L [facility] POTASSIUM 4.1 3.5 - 5.1 mmol/L [facility] CHLORIDE 102 98 - 107 mmol/L [facility] CARBON DIOXIDE 24.0 21.0 - 32.0 mmol/L [facility] ANION GAP 12.1 [facility] GLUCOSE 82 74 - 106 mg/dL [facility] BLOOD UREA NITROGEN 6.0(L) 7.0 - 18.0 mg/dL [facility] CREATININE 0.55 0.55 - 1.02 mg/dL [facility] TB[facility] EGFR-AF NORWEGIAN >60 >=60 mL/min/1. 73m 2 TBH TBH EGFR-NON AF [place]GIAN >60 >=60 mL/min/1. 73m 2 [facility] BUN [...] us Dave Diana DO [facility] Final [facility] * (ABNORMAL) ALL CBC WITH AUTO DIFF (10/26/2024 12:52 PM EDT) TB WBC 10.2 4.0 - 11.0 10 3/uL TB[facility] TB RBC 3.93(L) 4.20 - 5.40 10 6/uL [facility] TB HGB 10.6(L) 12.0 - 16.0 g/dL TB TB HCT 32.6(L) 36.0 - 48.0 % [facility] TB MCV 83.0 81.0 - 99.0 fL TB TB MCH 27.0 26.7 - 34.0 pg TBH TB MCHC 32.5 29.9 - 35.2 g/dL TB [facility] RDW 13.6 11.0 - 15.0 % [...] us Dave Diana DO CL[facility] Final Result [facility] * US OB follow up transabdominal [...] at 21-Oct-2024 08:41:57 AM [facility] Procedure Note Eloisa Hsu MD - 10/21/2024 EXAM: US OB FOLLOW [...] signed by ELOISA HSU II, MD, PHD [id number] 08:41:57 AM [facility] us Dave Diana DO IMG OB US PROCEDURES Final Resul t * Pap Smear (09/10/2024 12:00 AM EDT) Swab Cervical swab / Unknown us Diana Nurse [facility] Ob LAB CYTOLOGY ORDERABLES Final Result EXTERNAL LAB from Last 3 Months or Most Recently Relevant to Health Maintenance Additional Health Concerns Active Problems Noted Date Diagnosed Date OB Reminders 06/23/2024 Insurance * Guarantor: Zuleika Waddell Account Type Relation to Patient Date of Phone Billing Address Personal/Family Self 1990 [address] [place] [address] [employer] [place] Care Teams Child Development Instructor Relationship Specialty Start Date End Date Unallocated, Noms MD Prakash [address] [facility] [place] [address] PCP - General 03/04/23 Jaime [place]addell PA [address], [place] [id number] Referring Physician Physical Medicine and Rehabilitation 03/04/23
--- OUTSIDE RECORDS SUMMARY | 2024-12-16 05:27 | XMS_ITS | Patient Health Record ---
Author Organization [facility] in [place] Address [address] [place] [address] Care Team Providers Care Fur Drummer Name Role Phone Laron Pulliam Primary Care Provider Allergies Allergen (clinical drug ingredient) Drug/Non Drug Allergy documented on EMR Reaction Allergy Type Onset Date Status bee pollen Bee Pollen Unknown Drug Allergy Activ e Substance with sulfonamide structure and antibacterial mechanism of action (substance) Sulfa Antibiotics Unknown Drug Allergy Active Penicillin Unknown Drug Allergy Active Results Component Value Reference Range Notes ECG 12 lead Reviewed date:09/23/2024 06:29:51 PM Interpretation: Performing Lab: Notes/Report: Source Facility: [place] [address] Electrocardiograph Report Signed Patient: ZULEIKA WADDELL MR#: [id number] : 1990 Acct:[id number] Age/Sex: 34 / F ADM Date: 09/23/24 Loc: ER Attending Dr: Ordering Physician: Renata Fox D.O. 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 Signed By: 09/23/241407 DD/ 57 TD/TT: Sandwich Artist: [place] [address] Electrocardiograph Report Signed Patient: KJ WADDELL MR#: [id number] : 1990 Acct:[id number] Age/Sex: 34 / F ADM Date: 09/23/24 Loc: ER Attending Dr: Ordering Physician: Renata Fox D.O. 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 Signed By: 09/23/241407 DD/ 57 TD/TT: Sandwich Artist: OB BPP w non-stress Reviewed date:12/15/2024 08:18:08 PM Interpretation: Performing Lab: Notes/Report: Source Facility: [facility], [place],[address] [address] Ultrasound Report Signed Patient: ZULEIKA WADDELL MR#: [id number] : 1990 Acct:[id number] Age/Sex: 34 / F ADM Date: 12/15/24 Loc: US Attending Dr: Dave Ortiz D.O. Ordering Physician: Dave Ortiz D.O. Date of Service: 12/15/24 Procedure(s): US OB BPP w non-stress Accession Number(s): [id number] cc: Dave Ortiz D.O.; Gera Pulliam M.D. The [address] [address] Patient Name: ZULEIKA WADDELL MRN: [id number] date: 1990 Sex: F Assigned Patient Location: US Current Patient Location: Accession/Order Number: [id number] Exam Date: 12/15/2024 11:14 Report Date: 12/15/2024 11:15 At the request of: DAVE ORTIZ DO Procedure: US OB BPP w non-stress BIOPHYSICAL PROFILE: CLINICAL INFORMATION: Christiano cisterna magna Q04.9 COMPARISON: 12/08/2024 There is [...] Mahan M.D. 12/15/2024 11:15 AM Dictation Location: [place] [address] Electronically authenticated by: [id number] Y Date: 12/15/2024 11:15 Dictated By: Adela Mahan M.D. Signed By: 12/15/24 1118 DD/ 14 TD/TT: Sandwich Artist: [place] [address] Ultrasound Report Signed Patient: JK WADDELL MR#: [id number] : 1990 Acct:[id number] Age/Sex: 34 / F ADM Date: 12/15/24 Loc: US Attending Dr: Dave Ortiz D.O. Ordering Physician: Dave Ortiz D.O. Date of Service: 12/15/24 Procedure(s): US OB BPP w non-stress Accession Number(s): [id number] cc: Dave Ortiz D.O. ; Gera Pulliam M.D. The [place] [address] Patient Name: ZULEIKA WADDELL MRN: [id number] date: 1990 Sex: F Assigned Patient Loc ation: US Current Patient Location: Accession/Order Numb er: [id number] Exam Date: 12/15/2024 11:14 Report Date: 12/15/2024 11:15 At the request of: DAVE ORTIZ DO Procedure: US OB fet al BPP w non-stress BIOPHYSICAL PROFILE: CLINICAL INFORMATION : Christiano cisterna magna Q04.9 COMPARISON: 12/08/2024 There is a single li ve intrauterine [...] cm [Y] 2/2 ANURAG: 13.5 cm. This i s normal. Total score: 8/8 U S/US OB BPP w non-stress IMPRESSION: NORMAL BIOPHYSICAL PROFILE Impression dictated by: Adela Mahan M.D. 12/15/2024 11:15 AM Dictation Location: [place] [address] Electronically authenticated by: [id number] Y Date: 12/15/2024 11:15 Dictated By: Adela Mahan M.D. Signed By: 12/15/24 1118 DD/ 1115 TD/TT: Sandwich Artist: UA (CLEAN or CATCH) MOLD BUNCH TRIMMER or M ICRO IF IND. Reviewed date:12/13/2024 03:17:58 PM Interpretation: Performing Lab: Notes/Report: [facility] , Color Urine LT. YELLOW YELLOW Clarity Urine CLEAR CLEAR Specific [place] Urine 1.015 1.005-1.025 pH Urine 6.0 5.0-9.0 Protein Urine NEGATIVE NEG/TRACE mg/dL Glucose Urine UA NEGATIVE NEGATIVE mg/dL Bilirubin Urine NEGATIVE NEGATIVE Ketones Urine TRACE NEGATIVE mg/dL Blood Urine NEGATIVE NEGATIVE Nitrite Urine NEGATIVE NEGATIVE Urobilinogen Urine 2.0 0.2-1.0 EU/dL Leukocyte Esterase Urine SMALL NEGATIVE Urine Microscopic Indicated YES Performing Lab: see note ML - [facility] US OB BPP w non-stress Reviewed date:12/09/2024 09:35:57 PM Interpretation: Performing Lab: Notes/Report: Source Facility: [place] [address] Ultrasound Report Signed Patient: ZULEIKA WADDELL MR#: [id number] : 1990 Acct:[id number] Age/Sex: 34 / F ADM Date: 12/08/24 Loc: US Attending Dr: Dave Ortiz D.O. Ordering Physician: Dave Ortiz D.O. Date of Service: 12/08/24 Procedure(s): US OB BPP w non-stress Accession Number(s): [id number] cc: Dave Ortiz D.O.; Gera Pulliam M.D. [place] [address] Patient Name: ZULEIKA WADDELL MRN: [id number]:[id number] date: 1990 Sex: F Assigned Patient Location: [facility] Current Patient Location: [facility] Accession/Order Number: [id number] Exam Date: 12/08/2024 11:48 Report Date: 12/08/2024 [...] Mahan M.D. 12/08/2024 11:51 AM Dictation Location: [place] [address] Electronically authenticated by: [id number] Y Date: 12/08/2024 11:51 Dictated By: Adela Mahan M.D. Signed By: 12/08/24 1154 DD/ 1151 TD/TT: Sandwich Artist: [place] [address] Ultrasound Report Signed Patient: KJ WADDELL MR#: [id number] : 1990 Acct:[id number] Age/Sex: 34 / F ADM Date: 12/08/24 Loc: US Attending Dr: Dave Ortiz D.O. Ordering Physician: Dave Ortiz D.O. Date of Service: 12/08/24 Procedure(s): US OB BPP w non-stress Accession Number(s): [id number] cc: Dave Ortiz D.O. ; Gera Pulliam M.D. [address] [address] Patient Name: ZULEIKA WADDELL MRN: [id number] date: 1990 Sex: F Assigned Patient Loc ation: FB Current Patient Loca tion: [facility] Accession/Order Numb er: [id number] Exam Date: 12/08/2024 11:48 Report Date: 12/08/2024 [...] upper normal range. Total score: 8/8 U S/ OB BPP w non-stress IMPRESSION: NORMAL BIOPHYSICAL PROFILE. CONTINUED POSSIBLE N UCHAL CORD. Impression dictated by: Adela Mahan M.D. 12/08/2024 11:51 AM Dictation Location: [place] [address] Electronically authenticated by: [id number] Y Date: 12/08/2024 11:51 Dictated By: Adela Mahan M.D. Signed By: 12/08/24 1154 DD/ 1151 TD/TT: Sandwich Artist: US OB growth Reviewed date:12/01/2024 12:51:39 PM Interpretation: Performing Lab: Notes/Report: Source Facility: [place] [address] [place] [address] Ultrasound Report Signed Patient: ZULEIKA WADDELL MR#: [id number] : 1990 Acct:[id number] Age/Sex: 34 / F ADM Date: 12/01/24 Loc: US Attending Dr: Dave Ortiz D.O. Ordering Physician: Dave Ortiz D.O. Date of Service: 12/01/24 Procedure(s): US OB growth Accession Number(s): [id number] cc: Dave Ortiz D.O.; Gera Pulliam M.D. The [place] [address] Patient Name: ZULEIKA WADDELL MRN: [id number] date: 1990 Sex: F Assigned Patient Location: [facility] Current Patient Location: Accession/Order Number: [id number] Exam Date: 12/01/2024 11:04 Report Date: 12/01/2024 [...] Mahan M.D. 12/01/2024 11:12 AM Dictation Location: [place] [address] Electronically authenticated by: [id number] Y Date: 12/01/2024 11:12 Dictated By: Adela Mahan M.D. Signed By: 12/01/24 1115 DD/ 1112 TD/TT: Sandwich Artist: [place] [address] Ultrasound Report Signed Patient: KJ WADDELL MR#: [id number] : 1990 Acct:[id number] Age/Sex: 34 / F ADM Date: 12/01/24 Loc: US Attending Dr: Dave Ortiz D.O. Ordering Physician: Dave Ortiz D.O. Date of Service: 12/01/24 Procedure(s): US OB growth Accession Number(s): [id number] cc: Dave Ortiz D.O. ; Gera Pulliam M.D. [place] [id number] Patient Name: ZULEIKA WADDELL MRN: [id number] date: 1990 Sex: F Assigned Patient Loc ation: [facility] Current Patient Location: Accession/Order Numb er: [id number] Exam Date: 12/01/2024 11:04 Report Date: 12/01/2024 [...] 14 oz. +/- 14 ounces (35%) U S/ OB growth IMPRESSION: SINGLE LIVE INTRAUTE RINE [...] Mahan M.D. 12/01/2024 11:12 AM Dictation Location: [place] [address] Electronically authenticated by: [id number] Y Date: 12/01/2024 11:12 Dictated By: Adela Mahan M.D. Signed By: 12/01/24 1115 DD/ 111 TD/TT: Sandwich Artist: US OB BPP w non-stress Reviewed date:12/01/2024 12:51:39 PM Interpretation: Performing Lab: Notes/Report: Source Facility: [facility] [place] [address] [address] Ultrasound Report Signed Patient: ZULEIKA WADDELL MR#: [id number] : 1990 Acct:[id number] Age/Sex: 34 / F ADM Date: 12/01/24 Loc: US Attending Dr: Dave Ortiz D.O. Ordering Physician: Dave Ortiz D.O. Date of Service: 12/01/24 Procedure(s): US OB BPP w non-stress Accession Number(s): [id number] cc: Dave Ortiz D.O.; Gera Pulliam M.D. [address] [address] Patient Name: ZULEIKA WADDELL MRN: [id number]:[id number] date: 1990 Sex: F Assigned Patient Location: US Current Patient Location: Accession/Order Number: [id number] Exam Date: 12/01/2024 11:04 Report Date: 12/01/2024 [...] Mahan M.D. 12/01/2024 11:12 AM Dictation Location: [place] [address] Electronically authenticated by: [id number] Y Date: 12/01/2024 11:12 Dictated By: Adela Mahan M.D. Signed By: 12/01/241114 DD/ 11 TD/TT: Sandwich Artist: [place] [address] Ultrasound Report Signed Patient: KJ WADDELL MR#: [id number] : 1990 Acct:[id number] Age/Sex: 34 / F ADM Date: 12/01/24 Loc: US Attending Dr: Dave Ortiz D.O. Ordering Physician: Dave Ortiz D.O. Date of Service: 12/01/24 Procedure(s): US OB BPP w non-stress Accession Number(s): [id number] cc: Dave Ortiz D.O. ; Gera Pulliam M.D. [address] [address] Patient Name: ZULEIKA WADDELL MRN: [id number] date: 1990 Sex: F Assigned Patient Loc ation: US Current Patient Location: Accession/Order Numb er: [id number] Exam Date: 12/01/2024 11:04 Report Date: 12/01/2024 [...] Mahan M.D. 12/01/2024 11:12 AM Dictation Location: [place] [address] Electronically authenticated by: [id number] Y Date: 12/01/2024 11:12 Dictated By: Adela Mahan M.D. Signed By: 12/01/24 1115 DD/ 1112 TD/TT: Sandwich Artist: OB BPP w non-stress Reviewed date:11/24/2024 04:35:00 PM Interpretation: Performing Lab: Notes/Report: Source Facility: [facility] [place] [address] [address] Ultrasound Report Signed Patient: ZULEIKA WADDELL MR#: [id number] : 1990 Acct:[id number] Age/Sex: 34 / F ADM Date: 11/24/24 Loc: [facility] 250-[address]: Dave Ortiz D.O. Ordering Physician: Dave Ortiz D.O. Date of Service: 11/24/24 Procedure(s): US OB BPP w non-stress Accession Number(s): [id number] cc: Dave Ortiz D.O.; Gera Pulliam M.D. The [address] [address] Patient Name: ZULEIKA WADDELL MRN: [id number]:[id number] date: 1990 Sex: F Assigned Patient Location: [facility] Current Patient Location: [facility] Accession/Order Number: [id number] Exam Date: 11/24/2024 09:41 Report Date: 11/24/2024 [...] Mahan M.D. 11/24/2024 9:42 AM Dictation Location: [place] [address] Electronically authenticated by: [id number] Y Date: 11/24/2024 09:42 Dictated By: Adela Mahan M.D. Signed By: 11/24/2445 DD/ 1 TD/TT: Sandwich Artist: [place] [address] Ultrasound Report Signed Patient: KJ WADDELL MR#: [id number] : 1990 Acct:[id number] Age/Sex: 34 / F ADM Date: 11/24/24 Loc: [facility] 250-[address]: Dave Ortiz D.O. Ordering Physician: Dave Ortiz D.O. Date of Service: 11/24/24 Procedure(s): US OB BPP w non-stress Accession Number(s): [id number] cc: Dave Ortiz D.O. ; Gera Pulliam M.D. [address] [address] Patient Name: ZULEIKA WADDELL MRN: [id number]:[id number] date: 1990 Sex: F Assigned Patient Loc ation: FB Current Patient Loca tion: [facility] Accession/Order Numb er: [id number] Exam Date: 11/24/2024 09:41 Report Date: 11/24/2024 [...] This i s normal. Total score: 8/8 S/US OB BPP w non-stress IMPRESSION: NORMAL BIOPHYSICAL PROFILE. Impression dictated by: Adela Mahan M.D. 11/24/2024 9:42 AM Dictation Location: [place] [address] Electronically authenticated by: [id number] Y Date: 11/24/2024 09:42 Dictated By: Adela Mahan M.D. Signed By: 11/24/24944 DD/ 1 TD/TT: Sandwich Artist: OB BPP w non-stress Reviewed date:11/17/2024 04:34:46 PM Interpretation: Performing Lab: Notes/Report: Source Facility: [place] [address] Ultrasound Report Signed Patient: ZULEIKA WADDELL MR#: [id number] : 1990 Acct:[id number] Age/Sex: 34 / F ADM Date: 11/17/24 Loc: US Attending Dr: Dave Ortiz D.O. Ordering Physician: Dave Ortiz D.O. Date of Service: 11/17/24 Procedure(s): OB BPP w non-stress Accession Number(s): [id number] cc: Dave Ortiz D.O.; Gera Pulliam M.D. The [place] [address] Patient Name: ZULEIKA WADDELL MRN: [facility]:[id number] date: 1990 Sex: F Assigned Patient Location: [facility] Current Patient Location: Accession/Order Number: [id number] Exam Date: 11/17/2024 10:16 Report Date: 11/17/2024 [...] Mahan M.D. 11/17/2024 10:17 AM Dictation Location: [place] [address] Electronically authenticated by: [id number] Y Date: 11/17/2024 10:17 Dictated By: Adela Mahan M.D. Signed By: 11/17/24 1019 DD/ 1017 TD/TT: Sandwich Artist: [place] [address] Ultrasound Report Signed Patient: KJ WADDELL MR#: [id number] : 1990 Acct:[id number] Age/Sex: 34 / F ADM Date: 11/17/24 Loc: Attending Dr: Dave Ortiz D.O. Ordering Physician: Dave Ortiz D.O. Date of Service: 11/17/24 Procedure(s): US OB BPP w non-stress Accession Number(s): [id number] cc: Dave Ortiz D.O. ; Gera Pulliam M.D. [place] [id number] Patient Name: ZULEIKA WADDELL MRN: TBH:[id number] date: 1990 Sex: F Assigned Patient Loc ation: [facility] Current Patient Location: Accession/Order Numb er: [id number] Exam Date: 11/17/2024 10:16 Report Date: 11/17/2024 [...] Mahan M.D. 11/17/2024 10:17 AM Dictation Location: [place] [address] Electronically authenticated by: [id number] Y Date: 11/17/2024 10:17 Dictated By: Adela Mahan M.D. Signed By: 11/17/24 1019 DD/ 1017 TD/TT: Sandwich Artist: US OB BPP w non-stress Reviewed date:11/10/2024 04:02:27 PM Interpretation: Performing Lab: Notes/Report: Source Facility: [place] [address] [place] [address] Ultrasound Report Signed Patient: ZULEIKA WADDELL MR#: [id number] : 1990 Acct:[id number] Age/Sex: 34 / F ADM Date: 11/10/24 Loc: US Attending Dr: Dave Ortiz D.O. Ordering Physician: Dave Ortiz D.O. Date of Service: 11/10/24 Procedure(s): US OB BPP w non-stress Accession Number(s): [id number] cc: Dave Ortiz D.O.; Gera Pulliam M.D. The [place] [address] Patient Name: ZULEIKA WADDELL MRN: [id number] date: 1990 Sex: F Assigned Patient Location: [facility] Current Patient Location: Accession/Order Number: [id number] Exam Date: 11/10/2024 10:07 Report Date: 11/10/2024 [...] Mahan M.D. 11/10/2024 10:08 AM Dictation Location: [place] [address] Electronically authenticated by: [id number] Y Date: 11/10/2024 10:08 Dictated By: Adela Mahan M.D. Signed By: 11/10/24 1011 DD/ 1008 TD/TT: Sandwich Artist: [place] [address] Ultrasound Report Signed Patient: KJ WADDELL MR#: [id number] : 1990 Acct:[id number] Age/Sex: 34 / F ADM Date: 11/10/24 Loc: US Attending Dr: Dave Ortiz D.O. Ordering Physician: Dave Ortiz D.O. Date of Service: 11/10/24 Procedure(s): US OB BPP w non-stress Accession Number(s): [id number] cc: Dave Ortiz D.O. ; Gera Pulliam M.D. The [address] [address] Patient Name: ZULEIKA WADDELL MRN: [id number] date: 1990 Sex: F Assigned Patient Loc ation: FB Current Patient Location: Accession/Order Numb er: [id number] Exam Date: 11/10/2024 10:07 Report Date: 11/10/2024 10:08 At the request of: DAVE ORTIZ DO Procedure: US OB fet al BPP w non-stress BIOPHYSICAL PROFILE: CLINICAL INFORMATION : Christiano cisterna magna Q04.9 Comparison: 11/06/2024 There is a single li ve intrauterine gestation in cephalic presentation. The reported gestational age is 33 weeks 0 days. The heart rate [id number] beats per minute. FINDINGS: TONE: 1 or [...] Mahan M.D. 11/10/2024 10:08 AM Dictation Location: [place] [address] Electronically authenticated by: [id number] Y Date: 11/10/2024 10:08 Dictated By: Adela Mahan M.D. Signed By: 11/10/24 1011 DD/ 1008 TD/TT: Sandwich Artist: US OB BPP w non-stress Reviewed date:11/07/2024 11:57:39 AM Interpretation: Performing Lab: Notes/Report: Source Facility: [place] [address] Ultrasound Report Signed Patient: ZULEIKA WADDELL MR#: [id number] : 1990 Acct:[id number] Age/Sex: 34 / F ADM Date: 11/06/24 Loc: [facility] Attending Dr: Dave Ortiz D.O. Ordering Physician: Dave Ortiz D.O. Date of Service: 11/06/24 Procedure(s): US OB BPP w non-stress Accession Number(s): [id number] cc: Dave Ortiz D.O.; Gera Pulliam M.D. [place] [address] Patient Name: ZULEIKA WADDELL MRN: [id number]:[id number] date: 1990 Sex: F Assigned Patient Location: [facility] [place] Patient Location: Accession/Order Number: [id number] Exam Date: 11/06/2024 13:51 Report Date: 11/06/2024 [...] Giang M.D. 11/06/2024 2:00 PM Dictation Location: [employer] Electronically authenticated by: [id number] Y Date: 11/06/2024 14:00 Dictated By: Jimy Giang M.D. Signed By: 11/06/24 1403 DD/ 1400 TD/TT: Sandwich Artist: [place] [address] Ultrasound Report Signed Patient: KJ WADDELL MR#: [id number] : 1990 Acct:[id number] Age/Sex: 34 / F ADM Date: 11/06/24 Loc: [facility] Attending Dr: Dave Ortiz D.O. Ordering Physician: Dave Ortiz D.O. Date of Service: 11/06/24 Procedure(s): US OB BPP w non-stress Accession Number(s): [id number] cc: Dave Ortiz D.O. ; Gera Pulliam M.D. [place] [id number] Patient Name: ZULEIKA WADDELL MRN: [id number] date: 1990 Sex: F Assigned Patient Loc ation: [facility] Current Patient Location: Accession/Order Numb er: [id number] Exam Date: 11/06/2024 13:51 Report Date: 11/06/2024 [...] index : 12.1 cm. Impression dictated by: Jiym Giang M.D. 11/06/2024 2:00 PM Dictation Location: [place] [address] Electronically authenticated by: [id number] Y Date: 11/06/2024 14:00 Dictated By: Jimy Giang M.D. Signed By: 11/06/24 1403 DD/ 1400 TD/TT: Sandwich Artist: US OB growth Reviewed date:11/03/2024 08:40:24 PM Interpretation: Performing Lab: Notes/Report: Source Facility: [place] [address] Ultrasound Report Signed Patient: ZULEIKA WADDELL MR#: [id number] : 1990 Acct:[id number] Age/Sex: 34 / F ADM Date: 11/03/24 Loc: US Attending Dr: Dave Ortiz D.O. Ordering Physician: Dave Ortiz D.O. Date of Service: 11/03/24 Procedure(s): US OB growth Accession Number(s): [id number] cc: Dave Ortiz D.O.; Gera Pulliam M.D. [place] [address] Patient Name: ZULEIKA WADDELL MRN: [id number] date: 1990 Sex: F Assigned Patient Location: Current Patient Location: Accession/Order Number: [id number] Exam Date: 11/03/2024 16:30 Report Date: 11/03/2024 [...] Boyce M.D. 11/03/2024 4:34 PM Dictation Location: [place] [address] Electronically authenticated by: [id number] Y Date: 11/03/2024 16:34 Dictated By: Aaron Boyce D.O. Signed By: 11/03/24 1636 DD/ 1634 TD/TT: Sandwich Artist: [place] [address] Ultrasound Report Signed Patient: KJ WADDELL MR#: [id number] : 1990 Acct:[id number] Age/Sex: 34 / F ADM Date: 11/03/24 Loc: US Attending Dr: Dave Ortiz D.O. Ordering Physician: Dave Ortiz D.O. Date of Service: 11/03/24 Procedure(s): US OB growth Accession Number(s): [id number] cc: Dave Ortiz D.O. ; Gera Pulliam M.D. [place] [address] Patient Name: ZULEIKA WADDELL MRN: [id number] date: 1990 Sex: F Assigned Patient Loc ation: US Current Patient Location: Accession/Order Numb er: [id number] Exam Date: 11/03/2024 16:30 Report Date: 11/03/2024 [...] Boyce M.D. 11/03/2024 4:34 PM Dictation Location: [place] [address] Electronically authenticated by: [id number] Y Date: 11/03/2024 16:34 Dictated By: Basilio Boyce D.O. Signed By: 11/03/24 1636 DD/ 163 TD/TT: Sandwich Artist: US OB BPP w non-stress Reviewed date:11/03/2024 08:40:24 PM Interpretation: Performing Lab: Notes/Report: Source Facility: [place] [address] Ultrasound Report Signed Patient: ZULEIKA WADDELL MR#: [id number] : 1990 Acct:[id number] Age/Sex: 34 / F ADM Date: 11/03/24 Loc: US Attending Dr: Dave Ortiz D.O. Ordering Physician: Dave Ortiz D.O. Date of Service: 11/03/24 Procedure(s): US OB BPP w non-stress Accession Number(s): [id number] cc: Dave Ortiz D.O.; Gera Pulliam M.D. [place] [address] Patient Name: ZULEIKA WADDELL MRN: [id number] date: 1990 Sex: F Assigned Patient Location: Current Patient Location: Accession/Order Number: [id number] Exam Date: 11/03/2024 15:29 Report Date: 11/03/2024 15:31 At the request of: DAVE ORTIZ DO Procedure: US OB BPP w non-stress Ultrasound obstetrical biophysical profile HISTORY: Delton cisterna magna. In adequate breathing movement. Adequate gross body movement, tone and amniotic fluid volume. Total score 6 out of 8. Amniotic fluid index 11.1 cm within normal limits. heart rate 148 bpm. US/US OB BPP w non-stress IMPRESSION: Suboptimal biophysical profile. Score 6 out of 8. Impression dictated by: Aaron Boyce M.D. 11/03/2024 3:31 PM Dictation Location: [employer] Electronically authenticated by: [id number] Y Date: 11/03/2024 15:31 Dictated By: Aaron Boyce D.O. Signed By: 11/03/24 1533 DD/ 153 TD/TT: Sandwich Artist: [place] [address] Ultrasound Report Signed Patient: KJ WADDELL MR#: [id number] : 1990 Acct:[id number] Age/Sex: 34 / F ADM Date: 11/03/24 Loc: US Attending Dr: Dave Ortiz D.O. Ordering Physician: Dave Ortiz D.O. Date of Service: 11/03/24 Procedure(s): US OB BPP w non-stress Accession Number(s): [id number] cc: Dave Ortiz D.O. ; Gera Pulliam M.D. [place] [address] Patient Name: ZULEIKA WADDELL MRN: [id number] date: 1990 Sex: F Assigned Patient Loc ation: US Current Patient Location: Accession/Order Numb er: [id number] Exam Date: 11/03/2024 15:29 Report Date: 11/03/2024 15:31 At the request of: DAVE ORTIZ DO Procedure: US OB fet al BPP w non-stress Ultrasound obstetric al biophysical profile HISTORY: Delton ciste rna magna. In adequate breathing movement. Adequate gross body movement, tone and amniotic fl uid volume. Total score 6 out of 8. Amniotic fluid index 11.1 cm within dayana l limits. heart rate 148 bpm. U S/US OB BPP w non-stress IMPRESSION: Suboptim al biophysical profile. Score 6 out of 8. Impression dictated by: Aaron Boyce M.D. 11/03/2024 3:31 PM Dictation Location: [employer] Electronically authenticated by: [id number] Y Date: 11/03/2024 15:31 Dictated By: Basilio Boyce D.O. Signed By: 11/03/24 153 DD/ 30 TD/TT: Sandwich Artist: Manual Differential Reviewed date:09/23/2024 01:07:05 PM Interpretation: Performing Lab: Notes/Report: [facility] [place] , Segmented Neutrophils % Manual 93.0 43.0-75.0 [...] 1+ Performing Lab: see note ML - [facility] LB PROF 14(COMP METB) Reviewed date:09/23/2024 01:07:05 PM Interpretation: Performing Lab: Notes/Report: [facility] , Sodium 138 136-145 mmol/L Potassium 3.7 [...] Globulin Ratio 0.7 Performing Lab: see note [facility] CBC AUTO DIFF Reviewed date:09/23/2024 01:07:05 PM Interpretation: Performing Lab: Notes/Report: [facility] , White Blood Count 12.5 4.0-11.0 10 [...] 9.6 9.5-13.5 fL Performing Lab: see note [facility] Urine Culture, Routine Reviewed date:12/14/2024 09:25:34 PM Interpretation: Performing Lab: Notes/Report: [facility] , Urine Culture, Routine See Below For Report Urine Culture, Routine Urine Culture, Routine Mixed urogenital jim Urine Culture, Routine Urine Culture, Routine 10,000-25,000 col aaron forming units per mL Urine Culture, Routine Urine Culture, Routine [facility] Urine Culture, Routine Urine Culture, Routine [address] [place] [phone] Urine Culture, Routine Urine Culture, Routine Wrapper Hand: Sea Fine PhD, Phone: [phone] Urine Culture, Routine Performing Lab: see note LC - [facility] LB SEE REPORT - Tool Repairer Bench Id information not found for OBX-specific music producer legend [employer]* Reviewed date:12/13/2024 03:17:58 PM Interpretation: Performing Lab: Notes/Report: [facility] , [employer] NEGATIVE NEGATIVE Performing Lab: see note [facility] URINE MICROSCOPIC ONLY Reviewed date:12/13/2024 03:17:58 PM Interpretation: Performing Lab: Notes/Report: [facility] , WBC Urine 5-10 NONE SEEN #/HPF RBC Urine 0-2 0-2 #/HPF Bacteria Urine MODERATE NONE SEEN #/HPF Mucus Urine MODERATE NONE SEEN Squamous Epithelial Cell Urine MANY NONE/RARE #/LPF Crystals Seen? None Seen None Seen #/HPF Cast Seen? NONE SEEN NONE SEEN #/LPF Urine Culture Indicated YES-LC Performing Lab: see note ML - [facility] LB Strep Gp B Culture+Rflx Reviewed date:12/05/2024 01:43:12 PM Interpretation: Performing Lab: Notes/Report: [facility] , Strep Gp B Culture+Rflx See Below For Report Strep Gp B Culture+Rflx Strep Gp B Culture+Rflx Negative Stre p Gp B Culture+Rflx Strep Gp B Culture+Rflx Centers for Dise ase Control and Prevention (CDC) and Strep Gp B Culture+Rflx Strep Gp B Culture+Rflx [employer] Strep [...] Gp B Culture+Rflx Performed at: - [facility] Strep Gp B Culture+Rflx Strep Gp B Culture+Rflx [address] [place], [place] [id number] Strep Gp B Culture+Rflx Strep Gp B Culture+Rflx Wrapper Hand: Corazon Fine PhD, Phone: [phone] Strep Gp B Culture+Rflx Performing Lab: see note SEE REPORT - Tool Repairer Bench Id information not found for OBX-specific music producer legend - [facility] LB PROF 14(COMP METB) Reviewed date:10/26/2024 02:03:18 PM Interpretation: Performing Lab: Notes/Report: [facility] , Sodium 134 136-145 mmol/L Potassium 4.1 [...] 0.6 Performing Lab: see note ML - [facility] LB CBC AUTO DIFF Reviewed date:10/26/2024 02:03:18 PM Interpretation: Performing Lab: Notes/Report: [facility] , White Blood Count 10.2 4.0-11.0 10 [...] Performing Lab: see note ML - The [facility] LB Reason For Referral No [...] 08/27/2024 Encounters Encounter Location Date Provider Diagnosis [facility] [address] [place] [address] 08/27/2024 [facility] [address] [place] [address] 08/28/2024 [facility] [address] [place] [address] 09/23/2024 [facility] [address] [place] [address] 08/27/2024 Laron Pulliam Diarrhea R19.7 Assessments Encounter [...] End Date [employer] [place] [address] [address] [place] [address] [id number] [place] [address] [place], [place] Self - patient is the insured Medical (General) History Medical History History ICD Code Asthma Depression Hypertension Surgical History Surgery Date(Month/Year) Club Foot- Left Open heart surgery Breast reduction 2015
--- OUTSIDE RECORDS SUMMARY | 2024-12-16 05:27 | XMS_ITS | Encounter Summary ---
Author Organization [facility] Address [address] [place] [address] Care Team Providers Care Equity Research Analyst Name Role Phone Yoselin Jaime FERMIN Unavailable Unallocated, Noms Provider Primary Care Provi kwabena Encounter Details Date Type Department Care Team (Late st Contact Info) Description 05/19/2024 Clinisync Result Encounter [facility] External Department Unsolicited Dave Ortiz, DO [address] [facility] [address] [place], [place] [phone] Social History Tobacco Use Types Packs/Day Years [...] AM EST Narrative 05/19/2024 7:27 AM EST The [address] [address] Ultrasound Report Signed Patient: ZULEIKA WADDELL MR#: [id number] : 1990 Acct:[id number] Age/Sex: 34 / F ADM Date: 05/18/24 Loc: US Attending Dr: Dave Ortiz D.O. Ordering Physician: Dave Ortiz D.O. Date of Service: 05/18/24 Procedure(s): US OB transvaginal Accession Number(s): [id number] cc: Dave Ortiz D.O.; Jaime Waddell [place] [id number] Patient Name: ZULEIKA WADDELL MRN: [id number] date: 1990 Sex: F Assigned Patient Location: US Current Patient Location: Accession/Order Number: [id number] Exam Date: 05/18/2024 17:15 Report Date: 05/19/2024 [...] M.D. Signed By: 05/19/24726 DD/ 3 TD/TT: Violent Crimes Detective: Procedure Note Radiology, Radiologist, MD - 12/03/2024 [place] [address] Ultrasound Report Signed Patient: ZULEIKA WADDELL LMR#: [id number] : 1990Acct:[id number] Age/Sex: 34 / FADM Date: 05/18/24 Loc: US Attending Dr: Dave Ortiz D.O. Ordering Physician: Dave Ortiz D.O. Date of Service: 05/18/24 Procedure(s): US OB transvaginal Accession Number(s): [id number] cc: Dave Ortiz D.O.; YoselinJaime The [place] [id number] Patient Name: ZULEIKA WADDELL MRN: [id number] date: 1990 Sex: F Assigned Patient Location: US Current Patient Location: Accession/Order Number: [id number] Exam Date: 05/18/2024 17:15 Report Date: 05/19/2024 [...] Crump M.D. Signed By:05/19/24726 DD/ 3 TD/TT: Violent Crimes Detective: us Dave Diana DO [facility] Final Result documented in this encounter Visit Diagnoses Not on filedocumented in this encounter Care Teams Equity Research Analyst Relationship Specialty Start Date End Date Unallocated, Noms Provider, [address] [place] [address] PCP - General 03/04/23 Jaime Waddell PA [address] [place] [address] Referring Physician Physical Medicine and Rehabilitation 03/04/23 documented as of this encounter
--- OUTSIDE RECORDS SUMMARY | 2024-12-16 05:27 | XMS_ITS | Encounter Summary ---
Author Organization [facility] Address [address] [place] [address] Care Team Providers Care Chiseler Head Name Role Phone YoselinJaime FERMIN Unavailable Unallocated, Noms Provider Primary Care Provi kwabena Encounter Details Date Type Department Care Team (Late st Contact Info) Description 11/06/2023 Clinisync Result Encounter [facility]OMS External Department Unsolicited Dave Ortiz, DO [address] [facility] [address] [place], [place] [phone] Social History Tobacco Use Types Packs/Day Years [...] PM EDT Narrative 11/06/2023 3:57 PM EDT The [address] [address] Ultrasound Report Signed Patient: ZULEIKA WADDELL MR#: [id number] : 1990 Acct:[id number] Age/Sex: 33 / F ADM Date: 11/06/23 Loc: US Attending Dr: Dave Ortiz D.O. Ordering Physician: Dave Ortiz D.O. Date of Service: 11/06/23 Procedure(s): US OB growth Accession Number(s): [id number] cc: Dave Ortiz D.O.; Jaime Waddell [place] [address] Patient Name: ZULEIKA WADDELL MRN: [id number] date: 1990 Sex: F Assigned Patient Location: US Current Patient Location: Accession/Order Number: [id number] Exam Date: 11/06/2023 14:19 Report Date: 11/06/2023 [...] Dictated By: Gamaliel Crump M.D. Signed By: 11/06/23 1557 DD/ 1554 TD/TT: Manager Package: Procedure Note Radiology, Radiologist, - 11/06/2023 [place] [address] Ultrasound Report Signed Patient: ZULEIKA WADDELL LMR#: [id number] : 1990Acct:[id number] Age/Sex: 33 / FADM Date: 11/06/23 Loc: US Attending Dr: Dave Ortiz D.O. Ordering Physician: Dave Ortiz D.O. Date of Service: 11/06/23 Procedure(s): US OB growth Accession Number(s): [id number] cc: Dave Ortiz D.O.; Jaime Waddell The [place] [address] Patient Name: ZULEIKA WADDELL MRN: [id number] date: 1990 Sex: F Assigned Patient Location: US Current Patient Location: Accession/Order Number: [id number] Exam Date: 11/06/2023 14:19 Report Date: 11/06/2023 [...] M.D. Signed By:11/06/23 1557 DD/ 53 TD/TT: Manager Package: us Dave Diana DO [facility] Final Result documented in this encounter Visit Diagnoses Not on filedocumented in this encounter Care Teams Chiseler Head Relationship Specialty Start Date End Date Unallocated, Noms Provider, [address] [place] [address] PCP - General 03/04/23 Jaime Waddell PA [address] [place] [address] Referring Physician Physical Medicine and Rehabilitation 03/04/23 documented as of this encounter
--- OUTSIDE RECORDS SUMMARY | 2024-12-16 05:27 | XMS_ITS | Encounter Summary ---
Author Organization [facility] Address [address] [facility] [place] [address] Care Team Providers Care Container Repairer Name Role Phone YoselinJaime FERMIN Unavailable Unallocated, Noms Provider Primary Care Provi kwabena Encounter Details Date Type Department Care Team (Late st Contact Info) Description 12/07/2024 Abstract [facility] OB [address] [place] [address] [place] [phone] Airam Murphy LPN Social History Tobacco Use [...] documented as of this encounter Care Teams Container Repairer Relationship Specialty Start Date End Date Unallocated, Noms Provider, [address] [place] [address] PCP - General 03/04/23 Jaime Wyatt PA [address] [place], [place] [phone] Referring Physician Physical Medicine and Rehabilitation 03/04/23 documented as of this encounter
--- OUTSIDE RECORDS SUMMARY | 2024-12-16 05:27 | XMS_ITS | Encounter Summary ---
Author Organization [facility] Address [address] [facility] [place] [address] Care Team Providers Care Capital Equipment Specialist Name Role Phone Yoselin Jaime FERMIN Unavailable Unallocated, Noms Provider Primary Care Provi kwabena Encounter Details Date Type Department Care Team (Late st Contact Info) Description 12/07/2024 Bamboo flowsheet [facility] BCP OB [address] [place] [phone] Cuong Ortiz, DO [address] [place], [place] [phone] Social History Tobacco Use Types Packs/Day Years [...] documented as of this encounter Care Teams Capital Equipment Specialist Relationship Specialty Start Date End Date Unallocated, Noms Provider, [address] [place] [address] PCP - General 03/04/23 Jaime Wyatt PA [address] [place], [place] [phone] Referring Physician Physical Medicine and Rehabilitation 03/04/23 documented as of this encounter
--- OUTSIDE RECORDS SUMMARY | 2024-12-16 05:27 | XMS_ITS | Encounter Summary ---
Author Organization [facility] Address [address] [facility] [place] [address] Care Team Providers Care Machine Welt Butter Name Role Phone Jaime Wyatt Unavailable Unallocated, Noms Provider Primary Care Provi kwabena Encounter Details Date Type Department Care Team (Late st Contact Info) Description 11/07/2023 Abstract [facility] BCP OB [address] [place] [phone] Cuong Ortiz, DO [address] [facility] [address] [place], [place] [phone] Social History Tobacco Use Types Packs/Day Years [...] on filedocumented in this encounter Care Teams Machine Welt Butter Relationship Specialty Start Date End Date Unallocated, Noms Provider, [address] [place] [address] PCP - General 03/04/23 Jaime Wyatt PA [address] [place] [address] Referring Physician Physical Medicine and Rehabilitation 03/04/23 documented as of this encounter
--- OUTSIDE RECORDS SUMMARY | 2024-12-16 05:27 | XMS_ITS | Encounter Summary ---
Author Organization [facility] Address [address] [facility] [place] [address] Care Team Providers Care Transactional Attorney Name Role Phone Jaime Wyatt Unavailable Unallocated, Noms Provider Primary Care Provi [facility] Encounter Details Date Type Department Care Team (Late st Contact Info) Description 11/18/2023 Abstract [facility] BCP OB [address] [place] [address] Destinee Vazquez LPN [address] [place] [address] Social History Tobacco Use Types [...] on filedocumented in this encounter Care Teams Transactional Attorney Relationship Specialty Start Date End Date Unallocated, Noms Provider, [address] [place] [address] PCP - General 03/04/23 Jaime Wyatt PA [address] [place] [address] Referring Physician Physical Medicine and Rehabilitation 03/04/23 documented as of this encounter
--- OUTSIDE RECORDS SUMMARY | 2024-12-16 05:27 | XMS_ITS | Encounter Summary ---
Author Organization [facility] Address [address] [facility] [place] [address] Care Team Providers Care Drapery And Upholstery Measurer Name Role Phone Yoselin Jaime FERMIN Unavailable Unallocated, Noms Provider Primary Care Provi kwabena Encounter Details Date Type Department Care Team (Late st Contact Info) Description 12/08/2024 Clinisync Result Encounter N[facility]S External Department Unsolicited Dave Ortiz, DO [address] [facility] [place] [address] Social History Tobacco Use Types Packs/Day Years [...] AM EDT Narrative 12/08/2024 11:54 [place] [address] Ultrasound Report Signed Patient: ZULEIKA WADDELL MR#: [id number] : 1990 Acct:[id number] Age/Sex: 34 / F ADM Date: 12/08/24 Loc: US Attending Dr: Dave Ortiz D.O. Ordering Physician: Dave Ortiz D.O. Date of Service: 12/08/24 Procedure(s): US OB BPP w non-stress Accession Number(s): [id number] cc: Dave Ortiz D.O.; Ramon Avila M.D. The [place] [id number] Patient Name: ZULEIKA WADDELL MRN: [id number] date: 1990 Sex: F Assigned Patient [facility] [place] [facility]ion/Order Number: [id number] Exam Date: 12/08/2024 11:48 Report Date: 12/08/2024 [...] Mahan M.D. 12/08/2024 11:51 AM Dictation Location: [place] [address] Electronically authenticated by: [id number] Y Date: 12/08/2024 11:51 Dictated By: Adela Mahan M.D. Signed By: 12/08/24 1154 DD/ 1151 TD/TT: Bed Machine Operator: Procedure Note Radiology, Radiologist, MD - 12/08/2024 [place] [address] Ultrasound Report Signed Patient: ZULEIKA WADDELL LMR#: [id number] : 1990Acct:[id number] Age/Sex: 34 / FADM Date: 12/08/24 Loc: US Attending Dr: Dave Ortiz D.O. Ordering Physician: Dave Ortiz D.O. Date of Service: 12/08/24 Procedure(s): US OB BPP w non-stress Accession Number(s): [id number] cc: Dave Ortiz D.O.; Ramon Avila M.D. The [place] [address] Patient Name: ZULEIKA WADDELL MRN: [facility]:[id number] date: 1990 Sex: F Assigned Patient [facility]: [facility] [place] [facility] [place]ion/Order Number: [id number] Exam Date: 12/08/2024 11:48 Report Date: 12/08/2024 [...] Mahan M.D. 12/08/2024 11:51 AM Dictation Location: [place] [address] Electronically authenticated by: [id number] Y Date: 1:51 Dictated By: Adela Mahan M.D. Signed By:12/08/24 1154 DD/ 1151 TD/TT: Bed Machine Operator: us Dave Diana DO [facility] Final Result documented in this encounter Visit Diagnoses Not on filedocumented in this encounter Additional Health Concerns Active Problems Noted Date Diagnosed Date OB Reminders 06/23/2024 documented as of this encounter Care Teams Drapery And Upholstery Measurer Relationship Specialty Start Date End Date Unallocated, Noms Provider, [address] [place] [address] PCP - General 03/04/23 Jaime Waddell PA [address] [place] [address] Referring Physician Physical Medicine and Rehabilitation 03/04/23 documented as of this encounter
--- OUTSIDE RECORDS SUMMARY | 2024-12-16 05:27 | XMS_ITS | Encounter Summary ---
Author Organization [facility] Address [address] [facility] [place] [address] Care Team Providers Care Blue Line Trimmer Name Role Phone Yoselin Jaime FERMIN Unavailable Unallocated, Noms Provider Primary Care Provi kwabena Encounter Details Date Type Department Care Team (Late st Contact Info) Description 06/30/2024 Abstract [facility] OB [address] [place] [address] Cuong Ortiz, DO [address] [facility] [place] [address] Social History Tobacco Use Types Packs/Day Years [...] documented as of this encounter Care Teams Blue Line Trimmer Relationship Specialty Start Date End Date Unallocated, Noms ProviderMD [address] [place] [address] PCP - General 03/04/23 Jaime Wyatt PA [address] [place] [address] Referring Physician Physical Medicine and Rehabilitation 03/04/23 documented as of this encounter
--- OUTSIDE RECORDS SUMMARY | 2024-12-16 05:27 | XMS_ITS | Encounter Summary ---
Author Organization [facility] Address [address] [place] [address] Care Team Providers Care Tool Adjuster Name Role Phone Yoselin Jaime FERMIN Unavailable Unallocated, Noms Provider Primary Care Provi kwabena Encounter Details Date Type Department Care Team (Late st Contact Info) Description 11/07/2023 Clinisync Result Encounter N[facility]S External Department Unsolicited Dave Ortiz, DO [address] [facility] [place] [address] Social History Tobacco Use Types Packs/Day Years [...] AM EDT Narrative 11/07/2023 7:13 AM EDT The [place] [id number] Ultrasound Report Signed Patient: ZULEIKA WADDELL MR#: [id number] : 1990 Acct:[id number] Age/Sex: 33 / F ADM Date: 11/06/23 Loc: US Attending Dr: Dave Ortiz D.O. Ordering Physician: Dave Ortiz D.O. Date of Service: 11/06/23 Procedure(s): US OB BPP w non-stress Accession Number(s): [id number] cc: Dave Ortiz D.O.; Jaime Waddell The [place] [phone] Patient Name: ZULEIKA WADDELL MRN: [id number] date: 1990 Sex: F Assigned Patient Location: US Current Patient Location: [facility] Accession/Order Number: [id number] Exam Date: 11/06/2023 14:19 Report Date: 11/07/2023 [...] Dictated By: Gamaliel Crump M.D. Signed By: 11/07/23 0713 DD/ TD/TT: Balloon Pilot: Procedure Note Radiology, Radiologist, - 11/07/2023 The [place] [id number] Ultrasound Report Signed Patient: ZULEIKA WADDELL LMR#: [id number] : 1990Acct:[id number] Age/Sex: 33 / FADM Date: 11/06/23 Loc: US Attending Dr: Dave Ortiz D.O. Ordering Physician: Dave Ortiz D.O. Date of Service: 11/06/23 Procedure(s): US OB BPP w non-stress Accession Number(s): [id number] cc: Dave rOtiz D.O.; Jaime Waddell [place] [address] Patient Name: ZULEIKA WADDELL MRN: [id number] date: 1990 Sex: F Assigned Patient Location: Current Patient Location: [facility] Accession/Order Number: [id number] Exam Date: 11/06/2023 14:19 Report Date: 11/07/2023 [...] 07:10 Dictated By: Gamaliel Crump M.D. Signed By:11/07/2313 DD/ 9 TD/TT: Balloon Pilot: Dave Ortiz DO [facility] Final Result documented in this encounter Visit Diagnoses Not on filedocumented in this encounter Care Teams Tool Adjuster Relationship Specialty Start Date End Date Unallocated, Noms Provider, MD Damaso [place]ONZ[place]Z [place] [phone] PCP - General 03/04/23 Jiame Waddell PA [address] [place] [address] Referring Physician Physical Medicine and Rehabilitation 03/04/23 documented as of this encounter
--- OUTSIDE RECORDS SUMMARY | 2024-12-16 05:28 | XMS_ITS | Encounter Summary ---
Author Organization [facility] Address [address] [facility] [place] [address] Care Team Providers Care Hair Specialist Name Role Phone Jaime Wyatt Unavailable Unallocated, Noms Provider Primary Care Provi [facility] Encounter Details Date Type Department Care Team (Late st Contact Info) Description 06/06/2023 Abstract [facility] BCP OB [address] [place] [address] Destinee Vazquez LPN [address] [place] [address] Social History Tobacco Use Types [...] on filedocumented in this encounter Care Teams Hair Specialist Relationship Specialty Start Date End Date Unallocated, Noms Provider, [address] [place] [address] PCP - General 03/04/23 Jaime Wyatt PA [address] [place] [address] Referring Physician Physical Medicine and Rehabilitation 03/04/23 documented as of this encounter
--- OUTSIDE RECORDS SUMMARY | 2024-12-16 05:28 | XMS_ITS | Encounter Summary ---
Author Organization [facility] Address [address] [facility] [place] [address] Care Team Providers Care Potato Chip Maker Name Role Phone Jaime Wyatt Unavailable Unallocated, Noms Provider Primary Care Provi kwabena Encounter Details Date Type Department Care Team (Late st Contact Info) Description 11/30/2024 Abstract [facility] BCP OB [address] [place] [address] Cuong Ortiz, DO [address] [place] [address] Social History Tobacco Use Types Packs/Day Years [...] documented as of this encounter Care Teams Potato Chip Maker Relationship Specialty Start Date End Date Unallocated, Noms Provider, [address] [place] [address] PCP - General 03/04/23 Jaime Wyatt PA [address] [place], [place] [address] Referring Physician Physical Medicine and Rehabilitation 03/04/23 documented as of this encounter
--- OUTSIDE RECORDS SUMMARY | 2024-12-16 05:28 | XMS_ITS | Encounter Summary ---
Author Organization [facility] Address [address] [place] [address] Care Team Providers Care Custom Shoe Designer And Maker Name Role Phone Unavailable Primary Care Provider Unavailabl e Source Comments In the event this information is protected by the Federal Confidentiality of Alcohol and Drug AbusePatient Records regulations: The Federal rules restrict any use of the information to criminally investigate or prosecute any alcohol or drug abuse patient.[facility] Encounter Details Date Type Department Care Team (Late st Contact Info) Description 02/10/2022 Lab Requisition [facility] [address] [place] [address] Eleazar Hess PA-C [address] [facility] [place] [phone] Social History Tobacco Use Types Packs/Day Years [...] Report SEE NOTE 02/22/2022 1:25 PM EDT [employer] Comment: Finegoldia magna Organism identified by client [...] caution. REKHA M Beta-Lactamase Neg Performed by [employer], [address] [place] [address] www.[facility], Piero Beaver MD, PHD, Lab. Director Micro Specimen SPECIMEN FROM ABSCESS / Unknown 02/05/2022 8:00 PM EDT 02/10/2022 3:57 PM EDT Eleazar Hess PA-C LABORATORY Final Result [facility] [address] [place] [address] * (ABNORMAL) ORGANISM TARYN (02/05/2022 8:00 PM [...] PA-C LABORATORY Final Result Performing Organization Address City/[facility]/ZIP Co de Phone Number [facility] [address] [address], [place] * (ABNORMAL) ORGANISM ID ANAEROBE (02/05/2022 8:00 PM EDT) Culture, Organism ID Anaerobe Finegoldia magna(A) 02/16/2022 3:33 PM EDT [facility] Micro Specimen SPECIMEN FROM ABSCESS / Unknown 02/05/2022 8:00 PM EDT 02/10/2022 3:57 PM EDT us Eleazar Hess PA-C LABORATORY Final Result Performing Organization Address [facility]/ZIP Co de Phone Number [facility] [address] [address], [place] documented in this encounter Visit Diagnoses Not on filedocumented in this encounter
--- OUTSIDE RECORDS SUMMARY | 2024-12-16 05:28 | XMS_ITS | Encounter Summary ---
Author Organization [facility] Address [address] [facility] [place] [address] Care Team Providers Care Computer Game Programmer Name Role Phone Jaime Wyatt Unavailable Unallocated, Noms Provider Primary Care Provi kwabena Encounter Details Date Type Department Care Team (Late st Contact Info) Description 09/29/2024 Abstract [facility] BCP OB [address] [place] [address] Cuong Ortiz, DO [address] [place] [address] Social History Tobacco Use Types Packs/Day Years [...] documented as of this encounter Care Teams Computer Game Programmer Relationship Specialty Start Date End Date Unallocated, Noms Provider, [address] [place] [address] PCP - General 03/04/23 aJime Wyatt PA [address] [place], [place] [id number] Referring Physician Physical Medicine and Rehabilitation 03/04/23 documented as of this encounter
--- OUTSIDE RECORDS SUMMARY | 2024-12-16 05:28 | XMS_ITS | Encounter Summary ---
Author Organization [facility] Address [address] [place] [address] Care Team Providers Care Bad Cloth Checker Name Role Phone Yoselin Jaime FERMIN Unavailable Unallocated, Noms Provider Primary Care Provi kwabena Encounter Details Date Type Department Care Team (Late st Contact Info) Description 10/24/2023 Clinisync Result Encounter NOMS External Department Unsolicited Dave Ortiz, DO [address] [facility] [address] [place], [place] [id number] Social History Tobacco Use Types Packs/Day Years [...] AM EDT Narrative 10/24/2023 7:40 AM EDT The [place] [id number] Ultrasound Report Signed Patient: ZULEIKA WADDELL MR#: [id number] : 1990 Acct:[id number] Age/Sex: 33 / F ADM Date: 10/23/23 Loc: US Attending Dr: Dave Ortiz D.O. Ordering Physician: Dave Ortiz D.O. Date of Service: 10/23/23 Procedure(s): US OB BPP w non-stress Accession Number(s): [id number] cc: Dave Ortiz D.O.; Jaime Waddell [place] [address] Patient Name: ZULEIKA WADDELL MRN: [facility]:[id number] date: 1990 Sex: F Assigned Patient Location: US Current Patient Location: US Accession/Order Number: [id number] Exam Date: 10/23/2023 15:25 Report Date: 10/24/2023 [...] Dictated By: Jalen Dawn M.D. Signed By: 10/24/23 0740 DD/ 0737 TD/TT: Engineering Psychologist: Procedure Note Radiology, Radiologist, MD - 10/24/2023 The [place] [id number] Ultrasound Report Signed Patient: ZULEIKA WADDELL LMR#: [id number] : 1990Acct:[id number] Age/Sex: 33 / FADM Date: 10/23/23 Loc: US Attending Dr: Dave Ortiz D.O. Ordering Physician: Dave Ortiz D.O. Date of Service: 10/23/23 Procedure(s): US OB BPP w non-stress Accession Number(s): [id number] cc: Dave Ortiz D.O.; Jaime Waddell [place] [id number] Patient Name: ZULEIKA WADDELL MRN: [facility]:[id number] date: 1990 Sex: F Assigned Patient Location: US Current Patient Location: US Accession/Order Number: [id number] Exam Date: 10/23/2023 15:25 Report Date: 10/24/2023 [...] 07:37 Dictated By: Jalen Dawn M.D. Signed By:10/24/23 0740 DD/ 0737 TD/TT: Engineering Psychologist: us Dave Ortiz DO [facility] Final Result documented in this encounter Visit Diagnoses Not on filedocumented in this encounter Care Teams Bad Cloth Checker Relationship Specialty Start Date End Date Unallocated, Noms Provider, [address] [place] [address] PCP - General 03/04/23 Jaime Waddell PA [address] [place] [address] Referring Physician Physical Medicine and Rehabilitation 03/04/23 documented as of this encounter
--- OUTSIDE RECORDS SUMMARY | 2024-12-16 05:28 | XMS_ITS | Clinical Summary ---
Author Organization [facility] Address [address] [place] [address] Care Team Providers Care Speech Correction Consultant Name Role Phone Unavailable Primary Care Provider [...] Billing Address Personal/Family Self 1990 na (Home) [address] [place] [address] [place] BCBS [place]
--- OUTSIDE RECORDS SUMMARY | 2024-12-16 05:28 | XMS_ITS | Encounter Summary ---
Author Organization [facility] Address [address] [facility] [place] [address] Care Team Providers Care Computer Support Analyst Name Role Phone Yoselin Jaime FERMIN Unavailable Unallocated, Noms Provider Primary Care Provi kwabena Encounter Details Date Type Department Care Team (Late st Contact Info) Description 12/14/2024 Bamboo flowsheet [facility] BCP OB [address] [place] [address] Cuong Ortiz, DO [address] [place], [place] [phone] Social History Tobacco Use Types Packs/Day Years [...] as of this encounter Care Teams Computer Support Analyst Relationship Specialty Start Date End Date Unallocated, Noms Provider, [address] [place] [address] PCP - General 03/04/23 Jaime Wyatt PA [address] [place], [place] [phone] Referring Physician Physical Medicine and Rehabilitation 03/04/23 documented as of this encounter
--- OUTSIDE RECORDS SUMMARY | 2024-12-16 05:28 | XMS_ITS | Encounter Summary ---
Author Organization [facility] Address [address] [place] [address] Care Team Providers Care Wind Turbine Electrical Engineer Name Role Phone Yoselin Jaime FERMIN Unavailable Unallocated, Noms Provider Primary Care Provi kwabena Encounter Details Date Type Department Care Team (Late st Contact Info) Description 10/10/2023 Clinisync Result Encounter NOMS External Department Unsolicited Dave Ortiz, DO [address] [facility] [place] [address] Social History Tobacco Use Types Packs/Day Years [...] AM EDT Narrative 10/10/2023 7:15 AM EDT The [place] [id number] Ultrasound Report Signed Patient: ZULEIKA WADDELL MR#: [id number] : 1990 Acct:[id number] Age/Sex: 33 / F ADM Date: 10/09/23 Loc: US Attending Dr: Dave Ortiz D.O. Ordering Physician: Dave Ortiz D.O. Date of Service: 10/09/23 Procedure(s): US OB BPP w non-stress Accession Number(s): [id number] cc: Dave Ortiz D.O.; Jaime Waddell [place] [address] Patient Name: ZULEIKA WADDELL MRN: [id number] date: 1990 Sex: F Assigned Patient Location: US Current Patient Location: Accession/Order Number: [id number] Exam Date: 10/09/2023 15:20 Report Date: 10/10/2023 [...] Dictated By: Jalen Dawn M.D. Signed By: 10/10/23 0715 DD/ 2 TD/TT: Edge Inker: Procedure Note Radiology, Radiologist, - 10/10/2023 The [place] [id number] Ultrasound Report Signed Patient: ZULEIKA WADDELL LMR#: [id number] : 1990Acct:[id number] Age/Sex: 33 / FADM Date: 10/09/23 Loc: US Attending Dr: Dave Ortiz D.O. Ordering Physician: Dave Ortiz D.O. Date of Service: 10/09/23 Procedure(s): US OB BPP w non-stress Accession Number(s): [id number] cc: Dave Ortiz D.O.; Jaime Waddell [place] [id number] Patient Name: ZULEIKA WADDELL MRN: [facility]:[id number] date: 1990 Sex: F Assigned Patient Location: US Current Patient Location: US Accession/Order Number: [id number] Exam Date: 10/09/2023 15:20 Report Date: 10/10/2023 [...] Dawn M.D. Signed By:10/10/23714 DD/ 2 TD/TT: Edge Inker: us Dave Ortiz DO [facility] Final Result documented in this encounter Visit Diagnoses Not on filedocumented in this encounter Care Teams Wind Turbine Electrical Engineer Relationship Specialty Start Date End Date Unallocated, Noms Provider, [address] [place], [place] [address] PCP - General 03/04/23 Jaime Waddell PA [address] [place] [address] Referring Physician Physical Medicine and Rehabilitation 03/04/23 documented as of this encounter
--- OUTSIDE RECORDS SUMMARY | 2024-12-16 05:28 | XMS_ITS | Encounter Summary ---
Author Organization [facility] Address [address] [facility] [place] [address] Care Team Providers Care Ticket Dispatcher Name Role Phone Yoselin Jaime FERMIN Unavailable Unallocated, Noms Provider Primary Care Provi kwabena Encounter Details Date Type Department Care Team (Late st Contact Info) Description 12/15/2024 Clinisync Result Encounter NOMS External Department Unsolicited Dave Ortiz, DO [address] [place] [address] Social History Tobacco Use Types Packs/Day Years [...] BPP W NON-STRESS 12/15/2024 11:15 AM EDT documented in this encounter Results * US OB BPP W NON-STRESS (12/15/2024 11:15 AM EDT) Anatomical Region Laterality Modality Other 12/15/2024 11:1 5 AM EDT Narrative 12/15/2024 11:18 [place] [address] Ultrasound Report Signed Patient: ZULEIKA WADDELL MR#: [id number] : 1990 Acct:[id number] Age/Sex: 34 / F ADM Date: 12/15/24 Loc: US Attending Dr: Dave Ortiz D.O. Ordering Physician: Dave Ortiz D.O. Date of Service: 12/15/24 Procedure(s): US OB BPP w non-stress Accession Number(s): [id number] cc: Dave Ortiz D.O.; Ramon Avila M.D. [place] [id number] Patient Name: ZULEIKA WADDELL MRN: [id number] date: 1990 Sex: F Assigned Patient Location: US Current Patient Location: Accession/Order Number: [id number] Exam Date: 12/15/2024 11:14 Report Date: 12/15/2024 [...] Mahan M.D. 12/15/2024 11:15 AM Dictation Location: [place] [address] Electronically authenticated by: [id number] Y Date: 12/15/2024 11:15 Dictated By: Adela Mahan M.D. Signed By: 12/15/24 1118 DD/ 111 TD/TT: Roadside Mechanic: Procedure Note Radiology, Radiologist, - 12/15/2024 [place] [address] Ultrasound Report Signed Patient: ZULEIKA WADDELL LMR#: [id number] : 1990Acct:[id number] Age/Sex: 34 / FADM Date: 12/15/24 Loc: US Attending Dr: Dave Ortiz D.O. Ordering Physician: Dave Ortiz D.O. Date of Service: 12/15/24 Procedure(s): US OB BPP w non-stress Accession Number(s): [id number] cc: Dave Ortiz D.O.; Ramon Avila M.D. The [place] [address] Patient Name: ZULEIKA WADDELL MRN: [id number] date: 1990 Sex: F Assigned Patient Location: US Current Patient Location: Accession/Order Number: [id number] Exam Date: 12/15/2024 11:14 Report Date: 12/15/2024 [...] Mahan M.D. 12/15/2024 11:15 AM Dictation Location: [place] [address] Electronically authenticated by: [id number] Y Date: 1:15 Dictated By: Adela Mahan M.D. Signed By:12/15/24 1118 DD/ 1115 TD/TT: Roadside Mechanic: us Dave Diana DO [facility] Final Result documented in this encounter Visit Diagnoses Not on filedocumented in this encounter Additional Health Concerns Active Problems Noted Date Diagnosed Date OB Reminders 06/23/2024 documented as of this encounter Care Teams Ticket Dispatcher Relationship Specialty Start Date End Date Unallocated, Noms Provider, [address] [place] [address] PCP - General 03/04/23 Jaime Waddell PA [address] [place] [address] Referring Physician Physical Medicine and Rehabilitation 03/04/23 documented as of this encounter
--- OUTSIDE RECORDS SUMMARY | 2024-12-16 05:28 | XMS_ITS ---
Author Organization [facility] Address [address] [place] [address] Care Team Providers Care Hospice Patient Care Secretary Name Role Phone Jaime Wyatt Unavailable Unallocated, Noms Provider Primary Care Provi kwabena [facility] Status:Enrolled (Active) Start date:08/11/2024 Enrollment date:08/12/2024 Enrollment reason:Identified by Health Plan Case Team Name Relationship Phone Elena Felix LPN(Responsible Staff) Licensed Prac tical Nurse [phone] Continued Care and Services Coordination
--- OUTSIDE RECORDS SUMMARY | 2024-12-16 05:28 | XMS_ITS | Encounter Summary ---
Author Organization [facility] Address [address] [facility] [place] [address] Care Team Providers Care Window Shade Installer Name Role Phone Yoselin Jaime FERMIN Unavailable Unallocated, Noms Provider Primary Care Provi kwabena Encounter Details Date Type Department Care Team (Late st Contact Info) Description 09/29/2024 Orders Only [facility] BCP OB [address] [place] [address] Destinee Vazquez LPN [address] [address] [place] [address] Social History Tobacco Use Types [...] documented as of this encounter Care Teams Window Shade Installer Relationship Specialty Start Date End Date Unallocated, Noms Provider, [address] [place] [address] PCP - General 03/04/23 Jaime Wyatt PA [address] [place] [address] Referring Physician Physical Medicine and Rehabilitation 03/04/23 documented as of this encounter
--- OUTSIDE RECORDS SUMMARY | 2024-12-16 05:28 | XMS_ITS | Encounter Summary ---
Author Organization [facility] Address [address] [facility] [place] [address] Care Team Providers Care Male Model Name Role Phone Jaime Wyatt Unavailable Unallocated, Noms Provider Primary Care Provi kwabena Encounter Details Date Type Department Care Team (Late st Contact Info) Description 11/17/2024 Abstract [facility] BCP OB [address] [place] [address] Cuong Ortiz, DO [address] [place] [address] Social History Tobacco Use Types Packs/Day Years [...] documented as of this encounter Care Teams Male Model Relationship Specialty Start Date End Date Unallocated, Noms Provider, [address] [place] [address] PCP - General 03/04/23 Jaime Wyatt PA [address] [place], [place] [address] Referring Physician Physical Medicine and Rehabilitation 03/04/23 documented as of this encounter
--- OUTSIDE RECORDS SUMMARY | 2024-12-16 05:28 | XMS_ITS | Encounter Summary ---
Author Organization [facility] Address [address] [place] [address] Care Team Providers Care Servicenow Administrator Developer Name Role Phone WaddellJaime FERMIN Unavailable Unallocated, Noms Provider Primary Care Provi kwabena Encounter Details Date Type Department Care Team (Late st Contact Info) Description 04/26/2023 Clinisync Result Encounter NOMS External Department Unsolicited Dave Ortiz, DO [address] [facility] [address] [place], [place] [address] Social History Tobacco Use Types Packs/Day Years [...] PM EST Narrative 04/26/2023 8:15 PM EST The [address] [address] Ultrasound Report Signed Patient: ZULEIKA WADDELL MR#: [id number] : 1990 Acct:[id number] Age/Sex: 33 / F ADM Date: 04/26/23 Loc: US Attending Dr: Dave Ortiz D.O. Ordering Physician: Dave Ortiz D.O. Date of Service: 04/26/23 Procedure(s): US OB transvaginal Accession Number(s): [id number] cc: Dave Ortiz D.O.; Physician,Non-Staff Didi The [address] [address] Patient Name: ZULEIKA WADDELL MRN: [id number] date: 1990 Sex: F Assigned Patient Location: US Current Patient Location: US Accession/Order Number: [id number] Exam Date: 04/26/2023 09:40 Report Date: 04/26/2023 [...] M.D. Signed By: 04/26/232017 DD/ 14 TD/TT: Keyboard Specialist: Procedure Note Radiology, Radiologist, MD - 04/26/2023 [place] [address] Ultrasound Report Signed Patient: ZULEIKA WADDELL LMR#: [id number] : 1990Acct:[id number] Age/Sex: 33 / FADM Date: 04/26/23 Loc: US Attending Dr: Dave Ortiz D.O. Ordering Physician: Dave Ortiz D.O. Date of Service: 04/26/23 Procedure(s): US OB transvaginal Accession Number(s): [id number] cc: Dave Ortiz D.O.; Physician,Non-Staff [place] [address] Patient Name: ZULEIKA WADDELL MRN: [id number]:[id number] date: 1990 Sex: F Assigned Patient Location: US Current Patient Location: US Accession/Order Number: [id number] Exam Date: 04/26/2023 09:40 Report Date: 04/26/2023 [...] live intrauterine 8 weeks 4 days by todayrobert. Electronically authenticated by: JALEN DAWN Date: 04/26/2023 20:15 Dictated By: Jalen Dawn M.D. Signed By:04/26/232017 DD/ 14 TD/TT: Keyboard Specialist: us Dave Ortiz DO [facility] Final Result documented in this encounter Visit Diagnoses Not on filedocumented in this encounter Care Teams Servicenow Administrator Developer Relationship Specialty Start Date End Date Unallocated, Noms Provider, [address] [place] [address] PCP - General 03/04/23 Jaime Waddell PA [address] [place] [address] Referring Physician Physical Medicine and Rehabilitation 03/04/23 documented as of this encounter
--- OUTSIDE RECORDS SUMMARY | 2024-12-16 05:28 | XMS_ITS | Encounter Summary ---
Author Organization [facility] Address [address] [place] [address] Care Team Providers Care Social Sciences Instructor Name Role Phone YoselinJaime FERMIN Unavailable Unallocated, Noms Provider Primary Care Provi kwabena Encounter Details Date Type Department Care Team (Late st Contact Info) Description 10/10/2023 Clinisync Result Encounter NOMS External Department Unsolicited aDve Ortiz, DO [address] [facility] [address] [place], [place] [address] Social History Tobacco Use Types Packs/Day Years [...] AM EDT Narrative 10/10/2023 7:21 AM EDT The [address] [address] Ultrasound Report Signed Patient: ZULEIKA WADDELL MR#: [id number] : 1990 Acct:[id number] Age/Sex: 33 / F ADM Date: 10/09/23 Loc: US Attending Dr: Dave Ortiz D.O. Ordering Physician: Dave Ortiz D.O. Date of Service: 10/09/23 Procedure(s): US OB growth Accession Number(s): [id number] cc: Dave Ortiz D.O.; Jaime Waddell [place] [address] Patient Name: ZULEIKA WADDELL MRN: [facility]:[id number] date: 1990 Sex: F Assigned Patient Location: [facility] Current Patient Location: Accession/Order Number: [id number] Exam Date: 10/09/2023 15:20 Report Date: 10/10/2023 [...] Dictated By: Jalen Dawn M.D. Signed By: 04/720 DD/ 7 TD/TT: Rail Car Welder: Procedure Note Radiology, Radiologist, - 10/10/2023 [place] [address] Ultrasound Report Signed Patient: ZULEIKA WADDELL LMR#: [id number] : 1990Acct:[id number] Age/Sex: 33 / FADM Date: 10/09/23 Loc: US Attending Dr: Dave Ortiz D.O. Ordering Physician: Dave Ortiz D.O. Date of Service: 10/09/23 Procedure(s): US OB growth Accession Number(s): [id number] cc: Dave Ortiz D.O.; Jaime Waddell The [place] [phone] Patient Name: ZULEIKA WADDELL MRN: [id number] date: 1990 Sex: F Assigned Patient Location: [facility] Current Patient Location: US Accession/Order Number: [id number] Exam Date: 10/09/2023 15:20 Report Date: 10/10/2023 [...] Dawn M.D. Signed By:10/10/23720 DD/ 7 TD/TT: Rail Car Welder: us Dave Daina DO [facility] Final Result documented in this encounter Visit Diagnoses Not on filedocumented in this encounter Care Teams Social Sciences Instructor Relationship Specialty Start Date End Date Unallocated, Noms Provider, [address] [place], [place] [address] PCP - General 03/04/23 Jaime Waddell PA [address] [place] [address] Referring Physician Physical Medicine and Rehabilitation 03/04/23 documented as of this encounter
--- OUTSIDE RECORDS SUMMARY | 2024-12-16 05:28 | XMS_ITS | Encounter Summary ---
Author Organization [facility] Address [address] [facility] [place] [address] Care Team Providers Care Scrap Kettle Tender Name Role Phone Jaime Wyatt Unavailable Unallocated, Noms Provider Primary Care Provi kwabena Encounter Details Date Type Department Care Team (Late st Contact Info) Description 12/19/[address] [facility] [address] [facility] [address] [place] [address] Arden Orozco, DO [address] [facility] [address] [place] [address] Social History Tobacco Use Types [...] on filedocumented in this encounter Care Teams Scrap Kettle Tender Relationship Specialty Start Date End Date Unallocated, Noms Provider, [address] [place] [address] PCP - General 03/04/23 Jaime Wyatt PA [address] [place] [address] Referring Physician Physical Medicine and Rehabilitation 03/04/23 documented as of this encounter
--- OUTSIDE RECORDS SUMMARY | 2024-12-16 05:28 | XMS_ITS | Encounter Summary ---
Author Organization [facility] Address [address] [place] [address] Care Team Providers Care Manufacturing Job Titles Name Role Phone Yoselin Jaime FERMIN Unavailable Unallocated, Noms Provider Primary Care Provi kwabena Encounter Details Date Type Department Care Team (Late st Contact Info) Description 10/21/2023 Clinisync Result Encounter NOMS External Department Unsolicited Dave Ortiz, DO [address] [facility] [place] [address] Social History Tobacco Use Types Packs/Day Years [...] AM EDT Narrative 10/21/2023 7:37 AM EDT The [place] [id number] Ultrasound Report Signed Patient: ZULEIKA WADDELL MR#: [id number] : 1990 Acct:[id number] Age/Sex: 33 / F ADM Date: 10/19/23 Loc: [facility]O Attending Dr: Dave Ortiz D.O. Ordering Physician: Dave Ortiz D.O. Date of Service: 10/19/23 Procedure(s): US OB BPP w non-stress Accession Number(s): [id number] cc: Dave Ortiz D.O.; Jaime Waddell [place] [phone] Patient Name: ZULEIKA WADDELL MRN: [facility]:[id number] date: 1990 Sex: F Assigned Patient Location: [facility] Current Patient Location: [facility] Accession/Order Number: [id number] Exam Date: 10/19/2023 14:53 Report Date: 10/21/2023 [...] Dictated By: Gamaliel Crump M.D. Signed By: 10/21/23 0737 DD/ 0734 TD/TT: Dermatology Physician Assistant: Procedure Note Radiology, Radiologist, - 10/21/2023 The [place] [id number] Ultrasound Report Signed Patient: ZULEIKA WADDELL LMR#: [id number] : 1990Acct:[id number] Age/Sex: 33 / FADM Date: 10/19/23 Loc: [facility]O Attending Dr: Dave Ortiz D.O. Ordering Physician: Dave Ortiz D.O. Date of Service: 10/19/23 Procedure(s): US OB BPP w non-stress Accession Number(s): [id number] cc: Dave Ortiz D.O.; Jaime Waddell [place] [address] Patient Name: ZULEIKA WADDELL MRN: [facility]:[id number] date: 1990 Sex: F Assigned Patient Location: [facility] Current Patient Location: [facility] Accession/Order Number: [id number] Exam Date: 10/19/2023 14:53 Report Date: 10/21/2023 [...] Gamaliel Crump M.D. Signed By:10/21/23 0737 DD/ 0734 TD/TT: Dermatology Physician Assistant: us Dave Ortiz DO [facility] Final Result documented in this encounter Visit Diagnoses Not on filedocumented in this encounter Care Teams Manufacturing Job Titles Relationship Specialty Start Date End Date Unallocated, Noms Provider, [address] [place], [place] [address] PCP - General 03/04/23 Jaime Waddell PA [address] [place] [address] Referring Physician Physical Medicine and Rehabilitation 03/04/23 documented as of this encounter
--- OUTSIDE RECORDS SUMMARY | 2024-12-16 05:28 | XMS_ITS | Encounter Summary ---
Author Organization [facility] Address [address] [place] [address] Care Team Providers Care Car Ferrier Name Role Phone Yoselin Jaime FERMIN Unavailable Unallocated, Noms Provider Primary Care Provi kwbaena Encounter Details Date Type Department Care Team (Late st Contact Info) Description 10/16/2023 Clinisync Result Encounter [facility] External Department Unsolicited Dave Ortiz, DO [address] [place], [place] [id number] Social History Tobacco Use Types Packs/Day Years [...] PM EDT Narrative 10/16/2023 3:08 [place] [address] Ultrasound Report Signed Patient: ZULEIKA WADDELL MR#: [id number] : 1990 Acct:[id number] Age/Sex: 33 / F ADM Date: 10/16/23 Loc: [facility] 250-[address]: Dave Ortiz D.O. Ordering Physician: Dave Ortiz D.O. Date of Service: 10/16/23 Procedure(s): US OB BPP w non-stress Accession Number(s): [id number] cc: Dave Ortiz D.O.; YoselinJaime [facility] [place] [id number] Patient Name: ZULEIKA WADDELL MRN: [id number] date: 1990 Sex: F Assigned Patient Location: [facility] Current Patient Location: [facility] Accession/Order Number: [id number] Exam Date: 10/16/2023 14:10 Report Date: 10/16/2023 [...] Signed By: 10/16/23 1508 DD/ 1505 TD/TT: Claim Technician: Procedure Note Radiology, Radiologist, - 10/16/2023 The [place] [id number] Ultrasound Report Signed Patient: ZULEIKA WADDELL LMR#: [id number] : 1990Acct:[id number] Age/Sex: 33 / FADM Date: 10/16/23 Loc: [facility] 250-[address]: Dave Ortiz D.O. Ordering Physician: Dave Ortiz D.O. Date of Service: 10/16/23 Procedure(s): US OB BPP w non-stress Accession Number(s): [id number] cc: Dave Ortiz D.O.; Jaime Waddell [place] [id number] Patient Name: ZULEIKA WADDELL MRN: [id number] date: 1990 Sex: F Assigned Patient Location: [facility] Current Patient Location: [facility] Accession/Order Number: [id number] Exam Date: 10/16/2023 14:10 Report Date: 10/16/2023 [...] M.D. Signed By:10/16/23 1508 DD/ 1505 TD/TT: Claim Technician: Dave Ortiz DO [facility] Final Result documented in this encounter Visit Diagnoses Not on filedocumented in this encounter Care Teams Car Ferrier Relationship Specialty Start Date End Date Unallocated, Noms Provider, [place] [address] PCP - General 03/04/23 Jaime Waddell PA [address] [place] [address] Referring Physician Physical Medicine and Rehabilitation 03/04/23 documented as of this encounter
--- OUTSIDE RECORDS SUMMARY | 2024-12-16 05:28 | XMS_ITS | Encounter Summary ---
Author Organization [facility] Address [address] [place] [address] Care Team Providers Care Product Engineer Name Role Phone Yoselin Jaime FERMIN Unavailable Unallocated, Noms Provider Primary Care Provi kwabena Encounter Details Date Type Department Care Team (Late st Contact Info) Description 10/30/2023 Clinisync Result Encounter [facility] External Department Unsolicited Dave Ortiz, DO [address] [place] [address] Social History Tobacco Use Types Packs/Day Years [...] PM EDT Narrative 10/30/2023 3:25 PM EDT The [place] [id number] Ultrasound Report Signed Patient: ZULEIKA WADDELL MR#: [id number] : 1990 Acct:[id number] Age/Sex: 33 / F ADM Date: 10/30/23 Loc: [place] Attending Dr: Dave Ortiz D.O. Ordering Physician: Dave Ortiz D.O. Date of Service: 10/30/23 Procedure(s): US OB BPP w non-stress Accession Number(s): [id number] cc: Dave Ortiz D.O.; YoselinJaime The [place] [id number] Patient Name: ZULEIKA WADDELL MRN: [id number] date: 1990 Sex: F Assigned Patient Location: [facility] Current Patient Location: Accession/Order Number: [id number] Exam Date: 10/30/2023 14:45 Report Date: 10/30/2023 [...] Crump M.D. Signed By: 10/30/23 1525 DD/ 1523 TD/TT: Telephone Information Clerk: Procedure Note Radiology, Radiologist, - 10/30/2023 The [place] [id number] Ultrasound Report Signed Patient: ZULEIKA WADDELL LMR#: [id number] : 1990Acct:[id number] Age/Sex: 33 / FADM Date: 10/30/23 Loc: [place] Attending Dr: Dave Ortiz D.O. Ordering Physician: Dave Ortiz D.O. Date of Service: 10/30/23 Procedure(s): US OB BPP w non-stress Accession Number(s): [id number] cc: Dave Ortiz D.O.; Jaime Waddell [place] [id number] Patient Name: ZULEIKA WADDELL MRN: [id number] date: 1990 Sex: F Assigned Patient Location: [facility] Current Patient Location: Accession/Order Number: [id number] Exam Date: 10/30/2023 14:45 Report Date: 10/30/2023 [...] Dictated By: Gamaliel Crump M.D. Signed By:10/30/23 1525 DD/ 1523 TD/TT: Telephone Information Clerk: us Dave Ortiz DO [facility] Final Result documented in this encounter Visit Diagnoses Not on filedocumented in this encounter Care Teams Product Engineer Relationship Specialty Start Date End Date Unallocated, Noms Provider, [address] [place] [address] PCP - General 03/04/23 Jaime Waddell PA [address] [place] [address] Referring Physician Physical Medicine and Rehabilitation 03/04/23 documented as of this encounter
--- OUTSIDE RECORDS SUMMARY | 2024-12-16 05:28 | XMS_ITS | CCD ---
Author Organization [facility] Care Team Providers Care Electronics Manufacturer Name Role Phone CLARA JAMA Unavailable Unavail able SERENITY MALDONADO Unavailable Unavailable OKSANA CARO Unavailable UnaNAGA Bai Unavailable Unavailable BARBOSA, LUKE MALIK Unavailable Unavailable Eloisa Nguyen R Unavailable Unavailable Patrick, Eloisa R Unavailable Unavailable Barbosa, Luke Unavailable Unavailable Shekhar, Christian A Unavailable Unavailable Barbosa, Luke Unavailable Unavailable South Whitley, Christian A Unavailable Unavailable Barbosa, Luke Unavailable Unavailable [place], Christian A Unavailable Unavailable Barbosa, Luke Unavailable Unavailable Shekhar, Christian A Unavailable Unavailable Barbosa, Luke Unavailable Unavailable [place]ley, Christian A Unavailable Unavailable [place], Christian A Unavailable Unavailable Barbosa, Luke Unavailable Unavailable [place], Christian A Unavailable Unavailable Barbosa, Luke Unavailable Unavailable Shekhar, Christian A Unavailable Unavailable [place], Christian A Unavailable Unavailable Barbosa, Luke Unavailable Unavailable Barbosa, Luke Unavailable Unavailable Woo, Emiliano Unavailable Unavailable Woo, Emiliano Unavailable Unavailable Eloisa Nguyen R Unavailable Unavailable Barbosa, Luke Unavailable Unavailable Barbosa, Luke Unavailable Unavailable Oscar, Jag W Unavailable Unavailable Boston, Jag W Unavailable Unavailable [place]ley, Christian A Unavailable Unavailable Barbosa, Luke Unavailable Unavailable [place]ley, Christian A Unavailable Unavailable Barbosa, Luke Unavailable [...] Unavail able Oscar, Jag W Unavailable Unavailable Boston, Jag W Unavailable Unavailable Barbosa, Luke Unavailable Unavailable No Doctor Assigned, Nodr Unavailable Unavail able Gamaliel Savage Unavailable Unavailable Barbosa, Luke Unavailable Unavailable Hannah, Aaron A Unavailable Unavailable Hannah, Aaron A Unavailable Unavailable Patrick, Eloisa R Unavailable Unavailable Patrick, Eloisa R Unavailable Unavailable Barbosa, Luke Unavailable Unavailable Frank, Juanita Unavailable Unavailable Frank, Juanita Unavailable Unavailable Barbosa, Luke Unavailable Unavailable [place]ley, Christian A Unavailable Unavailable [place], Christian A Unavailable Unavailable Barbosa, Luke Unavailable Unavailable [place], Christian A Unavailable Unavailable Barbosa, Luke Unavailable Unavailable Barbosa, Luke Unavailable Unavailable Oscar, Jag W Unavailable Unavailable Oscar, Jag W Unavailable Unavailable [place], Christian A Unavailable Unavailable Barbosa, Luke Unavailable Unavailable Gamaliel Savage Unavailable Unavailable Gamaliel Savage Unavailable Unavailable Barbosa, Luke Unavailable Unavailable [place]ley, Christian A Unavailable Unavailable Barbosa, Luke Unavailable [...] Emergency Provider SADAF Wyatt Primary Care Provider [facility] Elle Whitney Emergency Provider DIANA ., DR ACOSTA Consulting [facility]available DIANA ., DR ACOSTA Attending Unavailable DIANA ., DR ACOSTA Admitting Unavailable DIANA ., DR ACOSTA Admitting Unavailable DIANA ., DR ACOSTA Attending Unavailable [facility] Care Unavailable DIANA ., DR ACOSTA Consulting Unavailable ZIEBER, DR FELECIA Chadwick Consulting Unavailable [facility] Care Unavailable KARASIK ., DR CAMACHO Admitting Unavailabl e KARASIK ., DR CAMACHO Attending Unavailabl e KARASIK ., DR CAMACHO Consulting Unavailabl e ALISIA, DR GAMALIEL Fischer Consulting Unavailable DIANA ., DR ACOSTA Consulting Unavailable ZIEBER, DR FELECIA Chadwick Consulting Unavailable WILLIAMS ., ELENA Admitting Unavailable WILLIAMS ., ELENA Attending Unavailable [facility] Care Unavailable WILLIAMS ., ELENA Consulting Unavailable DIANA ., DR ACOSTA Admitting Unavailable DIANA ., DR ACOSTA Attending Unavailable [facility] Primary Care Unavailable DIANA ., DR ACOSTA Consulting Unavailable [facility] Primary Care Unavailable KARASIK ., DR CAMACHO Admitting Unavailabl e KARASIK ., DR CAMACHO Attending Unavailabl e KARASIK ., DR CAMACHO Consulting Unavailabl e DIANA ., DR ACOSTA Admitting Unavailable DIANA ., DR ACOSTA Attending Unavailable [facility] Care Unavailable DIANA ., DR ACOSTA Consulting Unavailable ZIEBER, DR FELECIA Chadwick Consulting Unavailable DIANA ., DR ACOSTA Admitting Unavailable DIANA ., DR ACOSTA Attending Unavailable [facility] Care Unavailable DIANA ., DR ACOSTA Consulting Unavailable ZIEBER, DR FELECIA Chadwick Consulting Unavailable PRATIMA, BRODIE Consulting Unavailable DIANA ., DR ACOSTA Consulting Unavailable [facility] [place] Care Unavailable DIANA ., DR ACOSTA Attending Unavailable DIANA ., DR ACOSTA Admitting Unavailable ZIEBER, DR FELECIA Chadwick Consulting Unavailable DIANA ., DR ACOSTA Consulting Unavailable [facility] [place] Care Unavailable DIANA ., DR ACOSTA Attending Unavailable DIANA ., DR ACOSTA Admitting Unavailable DIANA ., DR ACOSTA Admitting Unavailable DIANA ., DR ACOSTA Attending Unavailable [facility] Care Unavailable DIANA ., DR ACOSTA Consulting Unavailable ZIEBER, DR FELECIA Chadwick Consulting Unavailable DIANA ., DR ACOSTA Admitting Unavailable DIANA ., DR ACOSTA Attending Unavailable [facility] Care Unavailable WEST, DR GAMALIEL Fischer Consulting Unavailable DIANA ., DR ACOSTA Consulting Unavailable [facility] Primary Care Unavailable KARASIK ., DR CAMACHO Admitting Unavailabl e KARASIK ., DR CAMACHO Attending Unavailabl e KARASIK ., DR CAMACHO Consulting Unavailabl e DIANA ., DR ACOSTA Consulting Unavailable ZIEBER, DR FELECIA Chadwick Consulting Unavailable DIANA ., DR ACOSTA Admitting Unavailable DIANA ., DR ACOSTA Attending Unavailable [facility] Care Unavailable WEST, DR GAMALIEL Fischer Consulting Unavailable DIANA ., DR ACOSTA Consulting Unavailable DIANA ., DR ACOSTA Admitting Unavailable DIANA ., DR ACOSTA Attending Unavailable [facility] Care Unavailable DIANA ., DR ACOSTA Consulting Unavailable DIANA ., DR ACOSTA Admitting Unavailable DIANA ., DR ACOSTA Attending Unavailable [facility] Primary Care Unavailable DIANA ., DR ACOSTA Consulting Unavailable ZIEBER, DR FELECIA Chadwick Consulting Unavailable DIANA ., DR ACOSTA Admitting Unavailable DIANA ., DR ACOSTA Attending Unavailable [facility] Care Unavailable DIANA ., DR ACOSTA Consulting Unavailable DIANA ., DR ACOSTA Admitting Unavailable DIANA ., DR ACOSTA Attending Unavailable [facility] Primary Care Unavailable DIANA ., DR ACOSTA Consulting Unavailable [facility] Primary Care Unavailable DIANA ., DR ACOSTA Attending Unavailable DIANA ., DR ACOSTA Admitting Unavailable DIANA ., DR ACOSTA Admitting Unavailable DIANA ., DR ACOSTA Attending Unavailable [facility] Primary Care Unavailable DIANA ., DR ACOSTA Admitting Unavailable DIANA ., DR ACOSTA Attending Unavailable [facility] Primary Care Unavailable KARASIK ., DR CAMACHO Consulting Unavailabl e DIANA ., DR ACOSTA Consulting Unavailable DIANA ., DR ACOSTA Procedure Practitioner Unavail able ORLANDO PRASAD Consulting Unavailable JACQUES FLETCHER Consulting Unavailable DIANA ., DR ACOSTA Admitting Unavailable DIANA ., DR ACOSTA Attending Unavailable [facility] Primary Care Unavailable KARASIK ., DR CAMACHO Consulting Unavailabl e ZIEBER, DR FELECIA Chadwick Consulting Unavailable SADAF Wyatt Primary Care Provider MD Farhan Jean Attending Provider DO Ryan Poe Emergency Provider [phone] DO Arden Orozco Admit Provider DO Arden Orozco Attending Provider [phone] [facility], [facility] Igor Other Provider UnavailMD Juan Edwards Other Provider HAROON Monique Other Provider MD Jacques Valerio Other Provider [phone] MD Edith Urias Other Provider SADAF Wyatt Primary Care Provider Meagan, [facility] Elle Whitney Emergency Provider BRANNON Valencia Emergency Provider Andie [...] CUONG Attending Unavailable CUONG ORTIZ Attending Unavailable DIANACUONG PULIDO Attending Unavailable CUONG ORTIZ Attending Unavailable Allergies Allergy Classification Reported Allergen(s) Allergy Type Date of Onset Reaction(s) Facility (2 sources) Bee; Translations: [BEES] Propensity to adverse reactions (disorder) 12-01-19 18 [facility] Repository (2 sources) Mold spore; Translations: [MOLD SPORES] Propensity to adverse reactions (disorder) 12-01-19 18 [facility] Repository (20 sources) Penicillins; Translations: [PENICILLINS] Propensity to adverse reactions to drug (disorder) 11-27-19 14 [facility] Repository (18 sources) Sulfonamides (Antibiotic); Translations: [SULFA (SULFONAMIDE ANTIBIOTICS)] Propensity to adverse reactions to drug (disorder) 12-01-19 18 [facility] Repository (1 source) Bee/Wasp/Ant venom; Translations: [Bee Stings] Propensity to adverse reactions to drug (disorder) [facility] Repository (6 sources) mold extract; Translations: [Mold] Drug Allergy 08-13-19 25 [facility] Repository (1 source) Sulfonamides (Antibiotic); Translations: [sulfa drugs] Propensity to adverse reactions to drug (disorder) [facility] Repository (20 sources) bee venom; Translations: [BEE VENOM] Propensity to adverse reactions to drug (disorder) 07-18-19 18 [facility] Repository (1 source) OTHER; Translations: [OTHER] Propensity to adverse reactions to food (disorder) 11-22-19 18 [facility] Repository (20 sources) MOLDS & SMUTS; Translations: [MOLDS & SMUTS] Propensity to adverse reactions to drug (disorder) 07-18-19 18 [facility] Repository (20 sources) SULFA ANTIBIOTICS; Translations: [SULFA ANTIBIOTICS] Propensity to adverse reactions to drug (disorder) 07-18-19 18 [facility] Repository (1 source) Sulfonamides (Antibiotic) Drug allergy (disorder) 11-27-19 14 [facility] Repository (2 sources) Penicillin; Translations: [penicillin V] Drug Allergy 03-15-19 anaphylaxis [facility] (2 sources) Sulfacetamide; Translations: [sulfacetamide] Drug Allergy 03-15-19 anaphylaxis [facility] (9 sources) Bee Venom Protein (Honey Bee); Translations: [BEE VENOM PROTEIN (HONEY BEE)] Propensity to adverse reactions to drug 03-27-20 [facility] (20 sources) Bee pollen Allergy to substance 08-13-19 [facility] (20 sources) Penicillin G Drug Allergy 08-13-19 [facility] (20 sources) Sulfamethoxazole Allergy to substance 08-13-19 [facility] Medications Current Medications Medication Drug Class(es) Dates [...] 20, 2022 1:00am December 18, 2022 11:25pm [id number] 0.3 ml EPINEPHrine 1 mg/ml auto-injector (16 sources) alpha-Adrenergic Agonist, beta-Adrenergic Agonist, Catecholamine Start: 08-29-2024 EPINEPHrine (Epipen) 0.3 MG/0.3ML injection syringe 08/29/2024 Active fluconazole 10 mg/ml oral suspension (7 sources) Azole Antifungal Start: 08-06-2022 fluconazole (DIFLUCAN) 10 mg/mL suspension 08/06/2022 Active fluticasone propionate 0.05 mg/actuat metered dose nasal spray (16 sources) Corticosteroid Start: 06-04-2024 Flonase Allergy Relief 50 MCG/ACT nasal spray 1 (one) time each day at the same time 06/04/2024 Active loratadine 10 mg oral tablet (16 sources) Start: 06-04-2024 loratadine (Claritin) 10 MG [...] mouth in the morning. 0 02/27/2023 Active Eloy (No Known Home Meds) (2 sources) Start: 12-18-2022 Eloy (No Known Home Meds) Active December 18, [...] (-1 ORAL) Take by mouth. 0 Active Ynqleayr-Tyr-Gn-FA (, w/Iron & FA,) 27-0.8 MG tablet (3 sources) Multivi t-Min-Fe-FA (, w/Iron & FA,) 27-0.8 MG tablet 1 (one) time each day at the same time. 0 Active IW-Vyw-QW-Eccles-3 ( Gummies/DHA & FA) 0.4-32.5 MG chewable tablet (3 sources) Start: 07-09-2023 End: 08-08-2023 YO-Wyo-KB-Eccles-3 ( Gummies/DHA & FA) 0.4-32.5 MG chewable tablet Indications: 18 weeks gestation of Chew 0.4 mg in the morning. 30 tablet 11 07/09/2023 08/08/2023 Active Vit-Fe Fumarate-FA (PNV Plus Multivitamin) 27-1 MG tablet (20 sources) Start: 04-29-2024 take 1 tablet by mouth once daily Vit-Fe Fumarate-FA (PNV Plus Multivitamin) 27-1 MG tablet Indications: First trimester ([facility]) Take 1 tablet by mouth Daily 30 tablet 04/29/2024 Active Start: 04-29-2024 take 1 tablet by sarkis once daily Vit-Fe Fumarate-FA (PNV Plus Multivitamin) [...] conditions] Onset: 09-28-2024 Episodic Residual codes; unclassified (18 sources) Gestation period, 34 weeks; Translations: [34 weeks gestation of ] Onset: 11-23-2024 11-23-2024 Episodic Residual codes; unclassified (2 sources) Gestation period, 35 weeks; Translations: [35 weeks gestation of ] 11-30-2024 Episodic Residual codes; unclassified (2 sources) Gestation period, 36 weeks; Translations: [36 weeks gestation of ] 12-07-2024 Episodic Residual codes; unclassified (2 sources) Gestation period, 37 weeks; Translations: [37 weeks gestation of ] 12-14-2024 Episodic Screening and history of mental health and substance abuse codes (1 source) Personal history of nicotine dependence; Translations: [PERSONAL HISTORY OF NICOTINE DEPEND] Onset: 08-15-2022 Episodic Short gestation; low weight; and growth retardation (2 sources) Royfg-iae-zfoct baby; Translations: [ small for gestational age, unspecified weight] 10-26-2024 Episodic Skin and subcutaneous tissue infections (9 sources) Abscess of chest wall; Translations: [Cutaneous abscess of chest wall] 02-05-2022 Episodic Unclassified (1 source) 39 weeks gestation of ; Translations: [39 weeks gestation of ] Onset: 12-02-2017 Unclassified (2 sources) anomaly Onset: 11-30-2017 Unclassified (3 sources) 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 NA/UNS; Translations: [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 NA/UNS] Onset: 07-05-2022 Unclassified (20 [...] 09-30-2023 Episodic Unclassified (1 source) 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 Ordering Physician: Cuong Ortiz D.O. Date of Service: 12/15/24 Procedure(s): US OB BPP w non-stress Accession Number(s): [id number] cc: Cuong Ortiz D.O.; Ramon Avila M.D. [place] [id number] Patient Name: ZULEIKA WYATT MRN: [id number] date: 1990 Sex: F Assigned Patient Location: US Current Patient Location: Accession/Order Number: [id number] Exam Date: 12/15/2024 11:14 Report Date: 12/15/2024 11:15 At the request of: CUONG ORTIZ DO [...] Mahan M.D. 12/15/2024 11:15 AM Dictation Location: [place] [address] Electronically authenticated by: [id number] Y Date: 12/15/2024 11:15 Dictated By: Adela Mahan M.D. Signed By: 12/15/24 1118 DD/ 14 TD/TT: Weatherization Director: [facility] Radiology, Radiologi MD ivelisse - 12/15/2024 [place] [address] Ultrasound Report Signed Patient: ZULEIKA WYATT MR#: [id number] : 1990 Acct:[id number] Age/Sex: 34 / F ADM Date: 12/15/24 Loc: US Attending Dr: Cuong Ortiz D.O. Ordering Physician: Cuong Ortiz D.O. Date of Service: 12/15/24 Procedure(s): US OB BPP w non-stress Accession Number(s): [id number] cc: Cuong Ortiz D.O.; Ramon Avila M.D. The [place] [address] Patient Name: ZULEIKA WYATT MRN: [facility]:[id number] date: 1990 Sex: F Assigned Patient Location: US Current Patient Location: Accession/Order Number: [id number] Exam Date: 12/15/2024 11:14 Report Date: 12/15/2024 11:15 At the request of: CUONG ORTIZ DO [...] 13.5 cm. This is normal. Total score: 01/22 US/US OB BPP w non-stress IMPRESSION: NORMAL BIOPHYSICAL PROFILE Impression dictated by: Adela Mahan M.D. 12/15/2024 11:15 AM Dictation Location: [place] [address] Electronically authenticated by: [id number] Y Date: 12/15/2024 11:15 Dictated By: Adela Mahan M.D. Signed By: 12/15/24 1118 DD/ 1115 TD/TT: Weatherization Director: [facility] Radiology Study observation (narrative) [facility] OB BPP W NON-STRESS Ordered By: Radiologist Radiology on 12-15-2024 [facility] Work Phone: Urinalysis macro (dipstick) panel (U)on 12-14-2024 Bilirubin, UA Negative Negative - 4(70) +++ mg/dL [facility] Blood, UA Negative Negative - 50 Rakesh/mcL [facility] Clarity, UA Clear [facility] Color, UA Yellow [facility] Glucose, UA Negative Negative - 1999(110) ++++ mg/dL [facility] Interpretation and review of laboratory results Abnormal [facility] Ketones, UA Negative Negative - 160(16) ++++ mg/dL [facility] Leukocytes, UA Trace Negative - 500+++ Matti/mcL [facility] Nitrite, UA Negative Negative - Positive [facility] pH, UA 6.5 5 - 9 [facility] Protein, UA Negative Negative - 1999(20) ++++ mg/dL [facility] Spec Grav, UA 1.015 1 - 1.03 [facility] Urobilinogen, UA 0.2 0.2 - 12 mg/dL [facility] OB BPP W NON-STRESS on 12-08-2024 [place] [address] Ultrasound Report Signed Patient: ZULEIKA WYATT MR#: [id number] : 1990 Acct:[id number] Age/Sex: 34 / F ADM Date: 12/08/24 Loc: US Attending Dr: Cuong Ortiz D.O. Ordering Physician: Cuong Ortiz D.O. Date of Service: 12/08/24 Procedure(s): US OB BPP w non-stress Accession Number(s): [id number] cc: Cuong Ortiz D.O.; Ramon Avila M.D. [place] [address] Patient Name: ZULEIKA WYATT MRN: [id number] date: 1990 Sex: F Assigned Patient Location: [facility] Current Patient Location: [facility] Accession/Order Number: [id number] Exam Date: 12/08/2024 11:48 Report Date: 12/08/2024 [...] Mahan M.D. 12/08/2024 11:51 AM Dictation Location: [place] [address] Electronically authenticated by: [id number] Y Date: 12/08/2024 11:51 Dictated By: Adela Mahan M.D. Signed By: 12/08/24 1154 DD/ 1151 TD/TT: Weatherization Director: [facility] Radiology, Radiologtoi oviedo MD - 12/08/2024 [place] [address] Ultrasound Report Signed Patient: ZULEIKA WYATT MR#: [id number] : 1990 Acct:[id number] Age/Sex: 34 / F ADM Date: 12/08/24 Loc: US Attending Dr: Cuong Ortiz D.O. Ordering Physician: Cuong Ortiz D.O. Date of Service: 12/08/24 Procedure(s): US OB BPP w non-stress Accession Number(s): [id number] cc: Cuong Ortiz D.O.; Ramon Avila M.D. The [place] [id number] Patient Name: ZULEIKA WYATT MRN: [facility]:[id number] date: 1990 Sex: F Assigned Patient Location: [facility] Current Patient Location: [place] [facility] [place] Accession/Order Number: [id number] Exam Date: 12/08/2024 11:48 Report Date: 12/08/2024 [...] Mahan M.D. 12/08/2024 11:51 AM Dictation Location: [place] [address] Electronically authenticated by: [id number] Y Date: 12/08/2024 11:51 Dictated By: Adela Mahan M.D. Signed By: 12/08/24 1155 DD/ 1151 TD/TT: Weatherization Director: [facility] Radiology Study observation (narrative) [facility] US OB BPP W NON-STRESS Ordered By: Radiologist Radiology on 12-08-2024 [facility] Work Phone: No Panel InformationOrdered By: Radiologist Radiology on 12-01-2024 [facility] Work Phone: No Panel Informationon 12-01 Radiology Study observation (narrative) [facility] US OB BPP W NON-STRESS on 12-01-2024 [place] [address] Ultrasound Report Signed Patient: ZULEIKA WYATT MR#: [id number] : 1990 Acct:[id number] Age/Sex: 34 / F ADM Date: 12/01/24 Loc: US Attending Dr: Cuong Ortiz D.O. Ordering Physician: Cuong Ortiz D.O. Date of Service: 12/01/24 Procedure(s): US OB BPP w non-stress Accession Number(s): [id number] cc: Cuong Ortiz D.O.; Raomn Avila M.D. [place] [id number] Patient Name: ZULEIKA WYATT MRN: [id number] date: 1990 Sex: F Assigned Patient Location: Current Patient Location: Accession/Order Number: [id number] Exam Date: 12/01/2024 11:04 Report Date: 12/01/2024 [...] Mahan M.D. 12/01/2024 11:12 AM Dictation Location: [place] [address] Electronically authenticated by: [id number] Y Date: 12/01/2024 11:12 Dictated By: Adela Mahan M.D. Signed By: 12/01/24 1115 DD/ 1112 TD/TT: Weatherization Director: [facility] Radiology, Radiologtoi oviedo MD - 12/01/2024 [place] [address] Ultrasound Report Signed Patient: ZULEIKA WYATT MR#: [id number] : 1990 Acct:[id number] Age/Sex: 34 / F ADM Date: 12/01/24 Loc: US Attending Dr: Cuong Ortiz D.O. Ordering Physician: Cuong Ortiz D.O. Date of Service: 12/01/24 Procedure(s): US OB BPP w non-stress Accession Number(s): [id number] cc: Cuong Ortiz D.O.; Ramon Avila M.D. The [place] [id number] Patient Name: ZULEIKA WYATT MRN: [facility]:[id number] date: 1990 Sex: F Assigned Patient Location: US Current Patient Location: Accession/Order Number: [id number] Exam Date: 12/01/2024 11:04 Report Date: 12/01/2024 [...] Mahan M.D. 12/01/2024 11:12 AM Dictation Location: [place] [address] Electronically authenticated by: [id number] Y Date: 12/01/2024 11:12 Dictated By: Adela Mahan M.D. Signed By: 12/01/24 1115 DD/ 1112 TD/TT: Weatherization Director: [facility] OB GROWTHon 12-01-2024 [place] [address] Ultrasound Report Signed Patient: ZULEIKA WYATT MR#: [id number] : 1990 Acct:[id number] Age/Sex: 34 / F ADM Date: 12/01/24 Loc: US Attending Dr: Cuong Ortiz D.O. Ordering Physician: Cuong Ortiz D.O. Date of Service: 12/01/24 Procedure(s): US OB growth Accession Number(s): [id number] cc: Cuong Ortiz D.O.; Ramon Avila M.D. [place] [id number] Patient Name: ZULEIKA WYATT MRN: [id number] date: 1990 Sex: F Assigned Patient Location: [facility] Current Patient Location: Accession/Order Number: [id number] Exam Date: 12/01/2024 11:04 Report Date: 12/01/2024 [...] Mahan M.D. 12/01/2024 11:12 AM Dictation Location: [place] [address] Electronically authenticated by: [id number] Y Date: 12/01/2024 11:12 Dictated By: Adela Mahan M.D. Signed By: 12/01/24 1115 DD/ 1112 TD/TT: Weatherization Director: [facility] Radiology, Radiologi MD ivelisse - 12/01/[address] [address] Ultrasound Report Signed Patient: ZULEIKA WYATT MR#: [id number] : 1990 Acct:[id number] Age/Sex: 34 / F ADM Date: 12/01/24 Loc: US Attending Dr: Cuong Ortiz D.O. Ordering Physician: Cuong Ortiz D.O. Date of Service: 12/01/24 Procedure(s): US OB growth Accession Number(s): [id number] cc: Cuong Ortiz D.O.; Ramon Avila M.D. The [place] [id number] Patient Name: ZULEIKA WYATT MRN: [id number] date: 1990 Sex: F Assigned Patient Location: [facility] Current Patient Location: Accession/Order Number: [id number] Exam Date: 12/01/2024 11:04 Report Date: 12/01/2024 [...] Mahan M.D. 12/01/2024 11:12 AM Dictation Location: [place] [address] Electronically authenticated by: [id number] Y Date: 12/01/2024 11:12 Dictated By: Adela Mahan M.D. Signed By: 12/01/24 1115 DD/ 111 TD/TT: Weatherization Director: [facility] Urinalysis macro (dipstick) panel (U)on 11-30-2024 Bilirubin, UA Negative Negative - 4(70) +++ mg/dL [facility] Blood, UA Negative Negative - 50 Rakesh/mcL [facility] Clarity, UA Clear [facility] Color, UA Yellow [facility] Glucose, UA Negative Negative - 1999(110) ++++ mg/dL [facility] Interpretation and review of laboratory results Abnormal [facility] Ketones, UA Negative Negative - 160(16) ++++ mg/dL [facility] Leukocytes, UA Positive Negative - 500+++ Matti/mcL [facility] Comment on above: Moderate Nitrite, UA Negative Negative - Positive [facility] pH, UA 7.5 5 - 9 [facility] Protein, UA Negative Negative - 1999(20) ++++ mg/dL [facility] Spec Grav, UA 1.02 1 - 1.03 [facility] Urobilinogen, UA 0.2 0.2 - 12 mg/dL [facility] US OB BPP W NON-STRESS on 11-24-2024 The [facility] [address] [place] [address] Ultrasound Report Signed Patient: ZULEIKA WYATT MR#: [id number] : 1990 Acct:[id number] Age/Sex: 34 / F ADM Date: 11/24/24 Loc: [facility] 250-[address]: Cuong Ortiz D.O. Ordering Physician: Cuong Ortiz D.O. Date of Service: 11/24/24 Procedure(s): US OB BPP w non-stress Accession Number(s): [id number] cc: Cuong Ortiz D.O.; Ramon Avila M.D. [place] [id number] Patient Name: ZULEIKA WYATT MRN: [facility]:[id number] date: 1990 Sex: F Assigned Patient Location: [facility] Current Patient Location: [facility] Accession/Order Number: [id number] Exam Date: 11/24/2024 09:41 Report Date: 11/24/2024 [...] Mahan M.D. 11/24/2024 9:42 AM Dictation Location: [place] [address] Electronically authenticated by: [id number] Y Date: 11/24/2024 09:42 Dictated By: Adela Mahan M.D. Signed By: 11/24/2445 DD/ 1 TD/TT: Weatherization Director: [facility] Radiology, Radiologtoi oviedo MD - 11/24/2024 [place] [address] Ultrasound Report Signed Patient: ZULEIKA WYATT MR#: [id number] : 1990 Acct:[id number] Age/Sex: 34 / F ADM Date: 11/24/24 Loc: [facility] 250-[address]: Cuong Ortiz D.O. Ordering Physician: Cuong Ortiz D.O. Date of Service: 11/24/24 Procedure(s): US OB BPP w non-stress Accession Number(s): [id number] cc: Cuong Ortiz D.O.; Ramon Avila M.D. The [place] [id number] Patient Name: ZULEIKA WYATT MRN: [facility]:[id number] date: 1990 Sex: F Assigned Patient Location: [facility] Current Patient Location: [facility] Accession/Order Number: [id number] Exam Date: 11/24/2024 09:41 Report Date: 11/24/2024 [...] Mahan M.D. 11/24/2024 9:42 AM Dictation Location: [place] [address] Electronically authenticated by: [id number] Y Date: 11/24/2024 09:42 Dictated By: Adela Mahan M.D. Signed By: 11/24/2445 DD/ 1 TD/TT: Weatherization Director: [facility] Radiology Study observation (narrative) [facility] US OB BPP W NON-STRESS Ordered By: Radiologist Radiology on 11-24-2024 [facility] Work Phone: Urinalysis macro (dipstick) panel (U)on 11-23-2024 Bilirubin, UA Negative Negative - 4(70) +++ mg/dL [facility] Blood, UA Negative Negative - 50 Rakesh/mcL [facility] Clarity, UA Clear [facility] Color, UA Yellow [facility] Glucose, UA Negative Negative - 2000(110) ++++ mg/dL [facility] Interpretation and review of laboratory results Abnormal [facility] Ketones, UA Positive Negative - 160(16) ++++ mg/dL [facility] Comment on above: trace Leukocytes, UA Positive Negative - 500+++ Matti/mcL [facility] Comment on above: small Nitrite, UA Negative Negative - Positive [facility] pH, UA 6.5 5 - 9 [facility] Protein, UA Trace Negative - 2000(20) ++++ mg/dL [facility] Spec Grav, UA 1.02 1 - 1.03 [facility] Urobilinogen, UA 1.0 0.2 - 12 mg/dL [facility] US OB BPP W NON-STRESS on 11-17-2024 [place] [address] Ultrasound Report Signed Patient: ZULEIKA WYATT MR#: [id number] : 1990 Acct:[id number] Age/Sex: 34 / F ADM Date: 11/17/24 Loc: US Attending Dr: Cuong Ortiz D.O. Ordering Physician: Cuong Ortiz D.O. Date of Service: 11/17/24 Procedure(s): US OB BPP w non-stress Accession Number(s): [id number] cc: Cuong Ortiz D.O.; Ramon Avila M.D. The [place] [id number] Patient Name: ZULEIKA WYATT MRN: [facility]:[id number] date: 1990 Sex: F Assigned Patient Location: [facility] Current Patient Location: Accession/Order Number: [id number] Exam Date: 11/17/2024 10:16 Report Date: 11/17/2024 [...] Mahan M.D. 11/17/2024 10:17 AM Dictation Location: [place] [address] Electronically authenticated by: [id number] Y Date: 11/17/2024 10:17 Dictated By: Adela Mahan M.D. Signed By: 11/17/24 1019 DD/ 1017 TD/TT: Weatherization Director: [facility] Radiologtoi oviedo MD - 11/17/2024 [place] [address] Ultrasound Report Signed Patient: ZULEIKA WYATT MR#: [id number] : 1990 Acct:[id number] Age/Sex: 34 / F ADM Date: 11/17/24 Loc: US Attending Dr: Cuong Ortiz D.O. Ordering Physician: Cuong Ortiz D.O. Date of Service: 11/17/24 Procedure(s): US OB BPP w non-stress Accession Number(s): [id number] cc: Cuong Ortiz D.O.; Ramon Avila M.D. [place] [id number] Patient Name: ZULEIKA WYATT MRN: [facility]:[id number] date: 1990 Sex: F Assigned Patient Location: [facility] Current Patient Location: Accession/Order Number: [id number] Exam Date: 11/17/2024 10:16 Report Date: 11/17/2024 [...] Mahan M.D. 11/17/2024 10:17 AM Dictation Location: [place] [address] Electronically authenticated by: [id number] Y Date: 11/17/2024 10:17 Dictated By: Adela Mahan M.D. Signed By: 11/17/24 1019 DD/ 1017 TD/TT: Weatherization Director: [facility] Radiology Study observation (narrative) [facility] US OB BPP W NON-STRESS Ordered By: Radiologist Radiology on 11-17-2024 [facility] Work Phone: US OB BPP W NON-STRESS on 11-10-2024 [place] [address] Ultrasound Report Signed Patient: ZULEIKA WYATT MR#: [id number] : 1990 Acct:[id number] Age/Sex: 34 / F ADM Date: 11/10/24 Loc: US Attending Dr: Cuong Ortiz D.O. Ordering Physician: Cuong Ortiz D.O. Date of Service: 11/10/24 Procedure(s): US OB BPP w non-stress Accession Number(s): [id number] cc: Cuong Ortiz D.O.; Ramon Avila M.D. 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 The reported gestational age is 33 weeks 0 days. The heart rate [id number] beats per minute. FINDINGS: TONE: 1 or [...] Mahan M.D. 11/10/2024 10:08 AM Dictation Location: [place] [address] Electronically authenticated by: [id number] Y Date: 11/10/2024 10:08 Dictated By: Adela Mahan M.D. Signed By: 11/10/24 1011 DD/ 1008 TD/TT: Weatherization Director: [facility] Radiology, Radiologi MD ivelisse - 11/10/2024 [place] [address] Ultrasound Report Signed Patient: ZULEIKA WYATT MR#: [id number] : 1990 Acct:[id number] Age/Sex: 34 / F ADM Date: 11/10/24 Loc: US Attending Dr: Cuong Ortiz D.O. Ordering Physician: Cuong Ortiz D.O. Date of Service: 11/10/24 Procedure(s): US OB BPP w non-stress Accession Number(s): [id number] cc: Cuong Ortiz D.O.; Ramon Avila M.D. The [place] [address] Patient Name: ZULEIKA WYATT MRN: [facility]:[id number] date: 1990 Sex: F Assigned Patient Location: [facility] Current Patient Location: Accession/Order Number: [id number] Exam Date: 11/10/2024 10:07 Report Date: 11/10/2024 [...] Mahan M.D. 11/10/2024 10:08 AM Dictation Location: [place] [address] Electronically authenticated by: [id number] Y Date: 11/10/2024 10:08 Dictated By: Adela Mahan M.D. Signed By: 11/10/24 1011 DD/ 1008 TD/TT: Weatherization Director: [facility] Radiology Study observation (narrative) [facility] US OB BPP W NON-STRESS Ordered By: Radiologist Radiology on 11-10-2024 [facility] Work Phone: Urinalysis macro (dipstick) panel (U)on 11-10-2024 Bilirubin, UA Negative Negative - 4(70) +++ mg/dL [facility] Blood, UA Negative Negative - 50 Rakesh/mcL [facility] Clarity, UA Clear [facility] Color, UA Anna [facility] Glucose, UA Negative Negative - 2000(110) ++++ mg/dL [facility] Interpretation and review of laboratory results Abnormal [facility] Ketones, UA Negative Negative - 160(16) ++++ mg/dL [facility] Leukocytes, UA Trace Negative - 500+++ Matti/mcL [facility] Nitrite, UA Negative Negative - Positive [facility] pH, UA 6 5 - 9 [facility] Protein, UA Negative Negative - 2000(20) ++++ mg/dL [facility] Spec Grav, UA 1.025 1 - 1.03 [facility] Urobilinogen, UA 0.2 0.2 - 12 mg/dL [facility] US OB BPP W NON-STRESS on 11-03-[address] [address] Ultrasound Report Signed Patient: ZULEIKA WYATT MR#: [id number] : 1990 Acct:[id number] Age/Sex: 34 / F ADM Date: 11/03/24 Loc: US Attending Dr: Cuong Ortiz D.O. Ordering Physician: Cuong Ortiz D.O. Date of Service: 11/03/24 Procedure(s): US OB BPP w non-stress Accession Number(s): [id number] cc: Cuong Ortiz D.O.; Ramon Avila M.D. The [place] [address] Patient Name: ZULEIKA WYATT MRN: [facility]:[id number] date: 1990 Sex: F Assigned Patient Location: US Current Patient Location: Accession/Order Number: [id number] Exam Date: 11/03/2024 15:29 Report Date: 11/03/2024 15:31 At the request of: CUONG ORTIZ DO Procedure: US OB BPP w non-stress Ultrasound obstetrical biophysical profile HISTORY: Eccles cisterna magna. In adequate breathing movement. Adequate gross body movement, tone and amniotic fluid volume. Total score 6 out of 8. Amniotic fluid index 11.1 cm within normal limits. heart rate 148 bpm. US/US OB BPP w non-stress IMPRESSION: Suboptimal biophysical profile. Score 6 out of 8. Impression dictated by: Aaron Boyce M.D. 11/03/2024 3:31 PM Dictation Location: [place] [address] Electronically authenticated by: [id number] Y Date: 11/03/2024 15:31 Dictated By: Aaron Boyce D.O. Signed By: 11/03/24 1533 DD/ 1531 TD/TT: Weatherization Director: [facility] RadiologyRosendaogtoi oviedo MD - 11/03/2024 [place] [address] Ultrasound Report Signed Patient: ZULEIKA WYATT MR#: [id number] : 1990 Acct:[id number] Age/Sex: 34 / F ADM Date: 11/03/24 Loc: US Attending Dr: Cuong Ortiz D.O. Ordering Physician: Cuong Ortiz D.O. Date of Service: 11/03/24 Procedure(s): US OB BPP w non-stress Accession Number(s): [id number] cc: Cuong Ortiz D.O.; Ramon Avila M.D. [place] [id number] Patient Name: ZULEIKA WYATT MRN: [id number] date: 1990 Sex: F Assigned Patient Location: US Current Patient Location: Accession/Order Number: [id number] Exam Date: 11/03/2024 15:29 Report Date: 11/03/2024 15:31 At the request of: CUONG ORTIZ DO Procedure: US OB BPP w non-stress Ultrasound obstetrical biophysical profile HISTORY: Eccles cisterna magna. In adequate breathing movement. Adequate gross body movement, tone and amniotic fluid volume. Total score 6 out of 8. Amniotic fluid index 11.1 cm within normal limits. heart rate 148 bpm. US/US OB BPP w non-stress IMPRESSION: Suboptimal biophysical profile. Score 6 out of 8. Impression dictated by: Aaron Boyce M.D. 11/03/2024 3:31 PM Dictation Location: [place] [address] Electronically authenticated by: [id number] Y Date: 11/03/2024 15:31 Dictated By: Aaron Boyce D.O. Signed By: 11/03/24 1533 DD/ 1531 TD/TT: Weatherization Director: [facility] Radiology Study observation (narrative) [facility] US OB BPP W NON-STRESS Ordered By: Radiologist Radiology on 11-03-2024 [facility] Work Phone: US OB GROWTHon 11-03-2024 [place] [address] Ultrasound Report Signed Patient: ZULEIKA WYATT MR#: [id number] : 1990 Acct:[id number] Age/Sex: 34 / F ADM Date: 11/03/24 Loc: US Attending Dr: Cuong Ortiz D.O. Ordering Physician: Cuong Ortiz D.O. Date of Service: 11/03/24 Procedure(s): US OB growth Accession Number(s): [id number] cc: Cuong Ortiz D.O.; Ramon Avila M.D. The [place] [address] Patient Name: ZULEIKA WYATT MRN: [facility]:[id number] date: 1990 Sex: F Assigned Patient Location: US Current Patient Location: Accession/Order Number: [id number] Exam Date: 11/03/2024 16:30 Report Date: 11/03/2024 [...] Boyce M.D. 11/03/2024 4:34 PM Dictation Location: [place] [address] Electronically authenticated by: [id number] Y Date: 11/03/2024 16:34 Dictated By: Aaron Boyce D.O. Signed By: 11/03/24 1636 DD/ 163 TD/TT: Weatherization Director: [facility] Radiology, Radiologi MD ivelisse - 11/03/2024 [place] [address] Ultrasound Report Signed Patient: ZULEIKA WYATT MR#: [id number] : 1990 Acct:[id number] Age/Sex: 34 / F ADM Date: 11/03/24 Loc: US Attending Dr: Cuong Ortiz D.O. Ordering Physician: Cuong Ortiz D.O. Date of Service: 11/03/24 Procedure(s): US OB growth Accession Number(s): [id number] cc: Cuong Ortiz D.O.; Ramon Avila M.D. [place] [id number] Patient Name: ZULEIKA WYATT MRN: [facility]:[id number] date: 1990 Sex: F Assigned Patient Location: US Current Patient Location: Accession/Order Number: [id number] Exam Date: 11/03/2024 16:30 Report Date: 11/03/2024 [...] Boyce M.D. 11/03/2024 4:34 PM Dictation Location: [place] [address] Electronically authenticated by: [id number] Y Date: 11/03/2024 16:34 Dictated By: Aaron Boyce D.O. Signed By: 11/03/246 DD/ 163 TD/TT: Weatherization Director: [facility] Radiology Study observation (narrative) [facility] US OB GROWTHOrdered By: Varun ologdariela Radiology on 11-03-2024 [facility] Work Phone: [facility] CMP (CMP) (FOR REMOTE FH C USE)on 10-26-2024 Albumin [Mass/Vol] 2.6 g/dL Low 3.4 - 5.0 g/dL [facility] ALBUMIN GLOBULIN RATIO 0.6 NO [facility] ALP [Catalytic activity/Vol] 86 U/L 46 - 116 U/L [facility] ALT [Catalytic activity/Vol] 14 U/L 14 - 59 U/L [facility] Anion gap [Moles/Vol] 12.1 mmol/L NO [facility] AST [Catalytic activity/Vol] 15 U/L 15 - 37 U/L [facility] Bilirubin [Mass/Vol] 0.8 mg/dL 0.2 - 1 .0 mg/dL [facility] Calcium [Mass/Vol] 8.8 mg/dL 8.5 - 10. 1 mg/dL [facility] Chloride [Moles/Vol] 102 mmol/L 98 - 10 7 mmol/L [facility] CO2 [Moles/Vol] 24 mmol/L 21.0 - 32.0 mmol/L [facility] Creatinine [Mass/Vol] 0.55 mg/dL 0.55 - 1.02 mg/dL [facility] GFR/1.73 sq M.predicted CKD-EPI (S/P/Bld) [Vol rate/Area] >60 >=60 mL/min/1.7 3m 2 [facility] Globulin (S) [Mass/Vol] 4.3 g/dL [facility] Glucose [Mass/Vol] 82 mg/dL 74 - 106 mg/dL [facility] Interpretation and review of laboratory results Abnormal [facility] Potassium [Moles/Vol] 4.1 mmol/L 3.5 - 5.1 mmol/L [facility] Protein [Mass/Vol] 6.9 g/dL 6.4 - 8.2 g/dL [facility] Sodium [Moles/Vol] 134 mmol/L Low 136 - 145 mmol/L [facility] TBH EGFR-NON AF WELSH >60 >=60 mL/min/1.7 3m 2 [facility] Urea nitrogen [Mass/Vol] 6 mg/dL Low 7.0 - 18.0 mg/dL [facility] Urea nitrogen/Creatinine [Mass ratio] 10.9 mg/mg [facility] Urinalysis macro (dipstick) panel (U)on 10-26-2024 Bilirubin, UA Negative Negative - 4(70) +++ mg/dL [facility] Blood, UA Positive Negative - 50 Rakesh/mcL [facility] Comment on above: trace-intact Clarity, UA Clear [facility] Color, UA Yellow [facility] Glucose, UA Negative Negative - 1999(110) ++++ mg/dL [facility] Interpretation and review of laboratory results Abnormal [facility] Ketones, UA Negative Negative - 160(16) ++++ mg/dL [facility] Leukocytes, UA Positive Negative - 500+++ Matti/mcL [facility] Comment on above: small Nitrite, UA Negative Negative - Positive [facility] pH, UA 7 5 - 9 [facility] Protein, UA Negative Negative - 1999(20) ++++ mg/dL [facility] Spec Grav, UA 1.015 1 - 1.03 [facility] Urobilinogen, UA 0.2 0.2 - 12 mg/dL [facility] US OB FOLLOW UP TRANSABDOMIN AL APPROACHon [...] II, MD, PHD at 21-Oct-2024 08:41:57 AM [facility] [place] [facility] Normal Not Available Comment on above: Order Comment: US OB SCAN FOR GROWTH Estimated Date of Delivery: 12/29/24 Gestational Age as of 10/12/2024: 28w6d Urinalysis macro (dipstick) panel (U)on 10-12-2024 Bilirubin, UA Negative Negative - 4(70) +++ mg/dL [facility] Blood, UA Negative Negative - 50 Rakesh/mcL [facility] Clarity, UA Clear [facility] Color, UA Yellow [facility] Glucose, UA Negative Negative - 2000(110) ++++ mg/dL [facility] Interpretation and review of laboratory results Abnormal [facility] Ketones, UA Negative Negative - 160(16) ++++ mg/dL [facility] Leukocytes, UA Positive Negative - 500+++ Matti/mcL [facility] Comment on above: small Nitrite, UA Negative Negative - Positive [facility] pH, UA 6 5 - 9 [facility] Protein, UA Trace Negative - 1999(20) ++++ mg/dL [facility] Spec Grav, UA 1.03 1 - 1.03 [facility] Urobilinogen, UA 0.2 0.2 - 12 mg/dL [facility] IGP,APTIMA HPV,AGE GDLNon AGE GDLN ACOG TESTING Note . [facility] Comment on above: TESTS RESULT FLAG UN ITS REF RANGE LAB Clinician Provided Cytology Information Source.............[employer] Other.............. No. of containers..01 ThinPrep Vial Age Algo ACOG Krista... 32 FLAG LEGEND: L-Low Normal,H-High Normal,LL-Alert Low,HH-Alert High <-Panic Low,>-Panic High,A-Abnormal,AA-Critical Abnormal Performed at: 01 =[address] [address] Joann Denney MD, HPV APTIMA Negative Negative [facility] Comment on above: This nucleic acid am plification test detects fourteen high- risk HPV types (16,18,31,33,35,39,45,51,52,56,58,59,66,68) without differentiation. Performed at: =[address] [id number] Iron Carrier: Joann Denney MD, Phone: [phone] Performed at: [address] [id number] Iron Carrier: Joann Denney MD, Phone: [phone] IGP, APTIMA HPV, RFX 16/18,45 Note . [facility] Comment on above: TESTS RESULT FLAG UN ITS REF RANGE LAB DIAGNOSIS: 02 NEGATIVE FOR INTRAEPITHELIAL LESION OR MALIGNANCY. Specimen adequacy: 02 Satisfactory for evaluation. No endocervical component is identified. An endocervical component is not commonly seen in the patient. Performed by: [employer] ([employer]CP) . 02 Note: Note 02 The [...] High,A-Abnormal,AA-Critical Abnormal Performed at: 02 [address] [facility] [address] [address] Joann Denney MD, SPATULA-ALONE [employer] [facility] Urinalysis macro (dipstick) panel (U)on 09-14-2024 Bilirubin, UA Negative Negative - 4(70) +++ mg/dL [facility] Blood, UA Negative Negative - 50 Rakesh/mcL [facility] Clarity, UA Clear [facility] Color, UA Yellow [facility] Glucose, UA Negative Negative - 1999(110) ++++ mg/dL [facility] Interpretation and review of laboratory results Normal [facility] Ketones, UA Negative Negative - 160(16) ++++ mg/dL [facility] Leukocytes, UA Negative Negative - 500+++ Matti/mcL [facility] Nitrite, UA Negative Negative - Positive [facility] pH, UA 5.5 5 - 9 [facility] Protein, UA Negative Negative - 1999(20) ++++ mg/dL [facility] Spec Grav, UA 1.03 1 - 1.03 [facility] Urobilinogen, UA 1.0 0.2 - 12 mg/dL [facility] RECURRENT VAGINITIS (HTRX)on 09-11-2024 ATOPOBIUM VAGINAE 0 [facility] ATOPOBIUM VAGINAE Not detected [facility] BVAB 2,3 (BACTERIAL VAGINOSIS ASSOCIATED BACTERIA 2, 3); MOBILUNCUS SPP 0 [facility] BVAB 2,3 (BACTERIAL VAGINOSIS ASSOCIATED BACTERIA 2, 3); MOBILUNCUS SPP Not detected [facility] JEREMY ALBICANS, PARAPSILOSIS, TROPICALIS 0 [facility] JEREMY ALBICANS, PARAPSILOSIS, TROPICALIS Not [facility] GLABRATA 0 [facility] JEREMY GLABRATA Not detected [facility] JEREMY KRUSEI 0 [facility] JEREMY KRUSEI Not detected [facility] CHLAMYDIA TRACHOMATIS 0 [facility] CHLAMYDIA TRACHOMATIS Not detected N [facility] GARDNERELLA VAGINALIS 0 [facility] GARDNERELLA VAGINALIS Not detected N [facility] MEGASPHAERA (TYPES 1, 2) 0 [facility] MEGASPHAERA (TYPES 1, 2) Not detected [facility] MYCOPLASMA GENITALIUM 0 [facility] MYCOPLASMA GENITALIUM Not detected [facility] NEISSERIA GONORRHOEAE 0 [facility] NEISSERIA GONORRHOEAE Not detected [facility] TRICHOMONAS VAGINALIS 0 [facility] TRICHOMONAS VAGINALIS Not detected N [facility] US OB 14+ WEEKS ANATOMY SCAN [...] II, MD, PHD at 15-Aug-2024 07:21:28 AM [facility] [place] Normal Not Available Comment on above: Order Comment: US OB ANATOMY SINGLE W US OB CERVICAL LENGTH Estimated Date of Delivery: 12/29/24 Gestational Age as of 07/20/2024: 16w6d AFP, SERUM, OPEN SPINA BIFID Aon 07-22-2024 AFP MOM 1.18 . [facility] AFP VALUE 42.2 ng/mL . [facility] COMMENT: Comment . [facility] Comment on above: Alma Chaudhary , Ph.D., [facility] Director References: Available Upon Request. Multiples Of Median Cutoffs For AFP Elevations Briscoe 2.5 Black 2.8 IDD 2.0 Twins 4.5 Abbreviation Definitions IDD - Insulin Dep Diabetes OSBR - Open Spina Bifida Risk For further inquiries contact [employer] [facility] at [phone]. This test was developed and its performance characteristics determined by [facility]. It has not been cleared or approved by the Food and Drug Administration. Performed at: [facility] [employer] [address] [place], [place] [id number] Iron Carrier: Oz Harkins [facility], Phone: [phone] GEST. AGE ON COLLECTION DATE 16.9 . weeks [facility] GESTAT. AGE BASED ON LMP . [facility] Comment on above: Recalculations are n ot recommended when gestational dating by LMP and ultrasound are within 10 days. INSULIN DEP DIABETES No . [facility] INTERPRETATION Comment . [facility] Comment on above: Interpretation: Scre [...] to discuss available options. [employer] [place] [employer] recommends amniocentesis be offered to women age 35 and older. [age] [facility] MULTIPLE GESTATION No . [facility] OSBR RISK 1 IN 16 . [facility] RACE . [facility] RESULTS Report . [facility] TEST RESULTS: Negative . [facility] WEIGHT 159 . lbs [facility] [facility] [id number] 16 N 1 159 N N N N N [facility]/ [facility] Urinalysis macro (dipstick) panel (U)on 07-20-2024 Bilirubin, UA Negative Negative - 4(70) +++ mg/dL [facility] Blood, UA Negative Negative - 50 Rakesh/mcL [facility] Clarity, UA Clear [facility] Color, UA Yellow [facility] Glucose, UA Negative Negative - 1999(110) ++++ mg/dL [facility] Interpretation and review of laboratory results Abnormal [facility] Ketones, UA Negative Negative - 160(16) ++++ mg/dL [facility] Leukocytes, UA Trace Negative - 500+++ Matti/mcL [facility] Nitrite, UA Negative Negative - Positive [facility] pH, UA 6 5 - 9 [facility] Protein, UA Negative Negative - 1999(20) ++++ mg/dL [facility] Spec Grav, UA 1.03 1 - 1.03 [facility] Urobilinogen, UA 0.2 0.2 - 12 mg/dL [facility] ALL CBC WITH AUTO DIFFon BASOPHILS ABSOLUTE AUTO 0 [facility] Basophils/100 WBC (Bld) 0.3 % 0.2 - 2.0 % [facility] Eosinophils/100 WBC (Bld) 0.7 % Low 0.9 - 7.0 % [facility] Erythrocyte distribution width (RBC) [Ratio] 14.4 % 11.0 - 15.0 % [facility] Hematocrit (Bld) [Volume fraction] 42.1 % 36.0 - 48.0 % [facility] Hemoglobin (Bld) [Mass/Vol] 13.6 g/dL 12.0 - 16.0 g/dL [facility] IMMATURE GRANULOCYTES ABS AUTO 0.02 [facility] Immature granulocytes/100 WBC (Bld) 0.3 % 0.0 - 0.5 % [facility] Interpretation and review of laboratory results Abnormal [facility] LYMPHOCYTES ABSOLUTE AUTO 1.2 [facility] Lymphocytes/100 WBC (Bld) 15.9 % Low 20.5 - 60.0 % [facility] MCH (RBC) [Entitic mass] 27.6 pg 26.7 - 34.0 pg [facility] MCHC (RBC) [Mass/Vol] 32.3 g/dL 29.9 - 35.2 g/dL [facility] MCV (RBC) [Entitic vol] 85.4 fL 81.0 - 99.0 fL [facility] MONOCYTES ABSOLUTE AUTO 0.4 [facility] Monocytes/100 WBC (Bld) 5.2 % 1.7 - 12.0 % [facility] NEUTROPHILS ABSOLUTE AUTO 5.7 [facility] Neutrophils/100 WBC (Bld) 77.6 % High 43.0 - 75.0 % [facility] Platelet mean volume (Bld) [Entitic vol] 10 fL 9.5 - 13.5 fL [facility] TBH EO # 0.1 [facility]H PLT 194 [facility] TBH RBC 4.93 [facility] TB WBC 7.4 [facility] Urine Cultureon 06-22-2024 Bacteria identified Cx Nom (U) <9,000 colonies/ml mixed bacterial skin contaminants 2 Days PERFORMED BY: [facility] [address] [place] [address] PATHOLOGIST REMNANTS CUTTER JONO WILSON M.D. Normal [facility] Comment on above: Performed By: #### C UU #### [facility] [address] HCG ( test) Ql (U)o n 06-18-2024 Interpretation and review of laboratory results Abnormal [facility] Preg Test, Ur Positive Negative [facility] Urinalysis macro (dipstick) panel (U)on 06-18-2024 Bilirubin, UA Negative Negative - 4(70) +++ mg/dL [facility] Blood, UA Negative Negative - 50 Rakesh/mcL [facility] Clarity, UA Clear [facility] Color, UA Yellow [facility] Glucose, UA Negative Negative - 1999(110) ++++ mg/dL [facility] Interpretation and review of laboratory results Abnormal [facility] Ketones, UA Negative Negative - 160(16) ++++ mg/dL [facility] Leukocytes, UA Negative Negative - 500+++ Matti/mcL [facility] Nitrite, UA Negative Negative - Positive [facility] pH, UA 6.5 5 - 9 [facility] Protein, UA Negative Negative - 1999(20) ++++ mg/dL [facility] Spec Grav, UA 1.015 1 - 1.03 [facility] Urobilinogen, UA 0.2 0.2 - 12 mg/dL [facility] AFP, SERUM, OPEN SPINA BIFID Aon 07-20-2023 AFP MOM 1.21 . [facility] AFP VALUE 70.2 ng/mL . [facility] COMMENT: Comment . [facility] Comment on above: Alma Chaudhary , Ph.D., [facility] Director References: Available Upon Request. Multiples Of Median Cutoffs For AFP Elevations Briscoe 2.5 Black 2.8 IDD 2.0 Twins 4.5 Abbreviation Definitions IDD - Insulin Dep Diabetes OSBR - Open Spina Bifida Risk For further inquiries contact [employer] [facility] at [phone]. This test was developed and its performance characteristics determined by [facility]. It has not been cleared or approved by the Food and Drug Administration. Performed at: [facility] [address] [place], [place] [id number] Iron Carrier: Oz Harkins [facility], Phone: [phone] GEST. AGE ON COLLECTION DATE 20.4 . weeks [facility] GESTAT. AGE BASED ON LMP . [facility] Comment on above: Recalculations are n ot recommended when gestational dating by LMP and ultrasound are within 10 days. INSULIN DEP DIABETES No . [facility] INTERPRETATION Comment . [facility] Comment on above: Interpretation: Scre [...] to discuss available options. The [employer] [place] [employer] recommends amniocentesis be offered to women age 35 and older. [age] [facility] MULTIPLE GESTATION No . [facility] OSBR RISK 1 [place] 6301 . [facility] RACE . [facility] RESULTS Report . [facility] TEST RESULTS: Negative . [facility] WEIGHT 159 . lbs [facility] N N LMP [id number] 3 16 N 1 Y 159 N N N N [facility]/ [facility] Urinalysis macro (dipstick) panel (U)on 07-18-2023 Bilirubin, UA Negative Negative - 4(70) +++ mg/dL [facility] Blood, UA Negative Negative - 50 Rakesh/mcL [facility] Clarity, UA Clear [facility] Color, UA Yellow [facility] Glucose, UA Negative Negative - 1999(110) ++++ mg/dL [facility] Interpretation and review of laboratory results Normal [facility] Ketones, UA Negative Negative - 160(16) ++++ mg/dL [facility] Leukocytes, UA Negative Negative - 500+++ Matti/mcL [facility] Nitrite, UA Negative Negative - Positive [facility] pH, UA 5.5 5 - 9 [facility] Protein, UA Negative Negative - 2000(20) ++++ mg/dL [facility] Spec Grav, UA 1.020 1 - 1.03 [facility] Urobilinogen, UA 1.0 0.2 - 12 mg/dL [facility] Free Cell DNAon 2022 [facility] Amphetamine Screen Ql (U)Ord ered By: Ryan Poe on 12-19-2022 Amphetamines Ql (U) Negative Negative [facility] Automated erythrocytes count in urine sediment (number/area)Ordered By: Ryan Poe on 12-19-2022 RBC Auto (Urine sed) [#/Area] 5-9 [HPF] 0-4 [facility] Automated leukocytes count i n urine sediment (number/area)Ordered By: Ryan Poe on 12-19-2022 WBC Auto (Urine sed) [#/Area] 10-19 [HPF] 0-4 [facility] Barbiturates [Presence] in U rine by Screen methodOrdered By: Ryan Poe on 12-19-2022 Barbiturates Screen Ql (U) Negative Negative [facility] Benzodiazepines Screen Ql (U )Ordered By: Ryan Poe on 12-19-2022 Benzodiazepines Ql (U) Negative Negative [facility] Benzoylecgonine [Presence] i n Urine by Screen methodOrdered By: Ryan Poe on 12-19-2022 Benzoylecgonine Screen Ql (U) Negative Negative [facility] Bilirubin Test strip Ql (U)O rdered By: Ryan Poe on 12-19-2022 Bilirubin Ql (U) Negative Negative [facility] Cannabinoids [Presence] in U rine by Screen methodOrdered By: Ryan Poe on 12-19-2022 Cannabinoids Screen Ql (U) Positive Negative [facility] Comment on above: These are unconfirme d results and should not be used for legal purposes. Drug Cut-Off Concentration: AMPH 1000 ng/mL SEEMA 200 ng/mL LAZ 200 ng/mL COCM 300 ng/mL OP 300 ng/mL PCP 25 ng/mL THC 20 ng/mL Color Auto (U)Ordered By: Fernando Poe on 12-19-2022 Color (U) Yellow Yellow [facility] HCG ( test) IA.rapi d Ql (U)Ordered By: Ryan Poe on 12-19-2022 HCG ( test) Ql (U) Negative [facility] Ketones Auto test strip (U) [Mass/Vol]Ordered By: Ryan Poe on 12-19-2022 Ketones (U) [Mass/Vol] 1+ Negative Fi [facility] - UrinalysisOrder ed By: Ryan Poe on 12-19-2022 Hyaline casts LM Ql (Urine sed) 0-8 [LPF] 0-8 [facility] Nitrite Test strip Ql (U)Ord ered By: Ryan Poe on 12-19-2022 Nitrite Ql (U) Negative Negative [facility] Opiates [Presence] in Urine by Screen methodOrdered By: Ryan Poe on 12-19-2022 Opiates Screen Ql (U) Negative Negative [facility] Phencyclidine Screen Ql (U)O rdered By: Ryan Poe on 12-19-2022 Phencyclidine Ql (U) Negative Negative [facility] Protein Auto test strip (U) [Mass/Vol]Ordered By: Ryan Poe on 12-19-2022 Protein (U) [Mass/Vol] Negative Negative [facility] Specific gravity Auto test s trip (U) [Rel density]Ordered By: Ryan Poe on 12-19-2022 Specific gravity (U) [Rel density] 1.025 1.001-1.03 0 [facility] Squamous epithelial cells de tection in urine sediment by light microscopyOrdered By: Ryan Poe on 12-19-2022 Epithelial cells.squamous LM Ql (Urine sed) 3-4 [HPF] 0-2 [facility] Urine bacteria detection by automated methodOrdered By: Ryan Poe on 12-19-2022 Bacteria Auto Ql (U) None seen None Seen [facility] Urine clarity by refractomet ry automatedOrdered By: Ryan Poe on 12-19-2022 Clarity Refractometry automated (U) Clear Clear [facility] Urine culture routineOrdered By: Ryan Poe on 12-19-2022 Bacteria identified Cx Nom (U) 2 Days [facility] Urine glucose measurement by automated test strip (mass/volume)Ordered By: Ryan Poe on 12-19-2022 Glucose Auto test strip (U) [Mass/Vol] Normal mg/dL Normal [facility] Urine hemoglobin detection b y automated test stripOrdered By: Ryan Poe on 12-19-2022 Hemoglobin Auto test strip Ql (U) Negative Negative [facility] Urine leukocyte esterase det ection by automated test stripOrdered By: Ryan Poe on 12-19-2022 Leukocyte esterase Auto test strip Ql (U) 2+ Negative [facility] Urobilinogen Auto test strip (U) [Mass/Vol]Ordered By: Ryan Poe on 12-19-2022 Urobilinogen (U) [Mass/Vol] Normal mg/dL Normal [facility] pH Auto test strip (U)Ordere d By: Ryan Poe on 12-19-2022 pH (U) 5.5 [pH] 5.0-9.0 [facility] Amylase [Enzymatic activity/ volume] in Serum or PlasmaOrdered By: Ryan Poe on 12-18-2022 Amylase [Catalytic activity/Vol] 35 U/L 29-103 [facility] Aspartate aminotransferase [ Enzymatic activity/volume] in Serum or PlasmaOrdered By: Ryan Poe on 12-18-2022 AST [Catalytic activity/Vol] 26 U/L 13-39 [facility] Basophils Auto (Bld) [#/Vol] Ordered By: Ryan Poe on 12-18-2022 Basophils (Bld) [#/Vol] 0.1 10*3/uL 0.0-0.2 [facility] Basophils/100 WBC Auto (Bld) Ordered By: Ryan Poe on 12-18-2022 Basophils/100 WBC (Bld) 0.7 % . [facility] Carbon dioxide, total [Moles /volume] in Serum or PlasmaOrdered By: Ryan Poe on 12-18-2022 CO2 [Moles/Vol] 20.0 mmol/L 21.0-31.0 [facility] Chloride [Moles/volume] in S gwendolyn or PlasmaOrdered By: Ryan Poe on 12-18-2022 Chloride [Moles/Vol] 105 mmol/L 98-107 [facility] Choriogonadotropin.beta subu nit [Units/volume] in Serum or PlasmaOrdered By: Ryan Poe on 12-18-2022 HCG.beta subunit Qn Negative [facility] Creatine kinase [Enzymatic a ctivity/volume] in Serum or PlasmaOrdered By: Ryan Poe on 12-18-2022 CK [Catalytic activity/Vol] 50 U/L 30-223 [facility] Creatinine [Mass/volume] in Serum or PlasmaOrdered By: Ryan Poe on 12-18-2022 Creatinine [Mass/Vol] 0.84 mg/dL 0.60-1.20 [facility] Eosinophils Auto (Bld) [#/Vo l]Ordered By: Ryan Poe on 12-18-2022 Eosinophils (Bld) [#/Vol] 0.0 10*3/uL 0.0-0.45 [facility] Eosinophils/100 WBC Auto (Bl d)Ordered By: Ryan Poe on 12-18-2022 Eosinophils/100 WBC (Bld) 0.2 % . [facility] Erythrocyte distribution wid th Auto (RBC) [Ratio]Ordered By: Ryan Poe on 12-18-2022 Erythrocyte distribution width (RBC) [Ratio] 14.4 % 11.9-15.3 [facility] Ethanol [Mass/volume] in Ser um or PlasmaOrdered By: Ryan Poe on 12-18-2022 Ethanol [Mass/Vol] mg/dL [facility] Ethanol [Mass/Vol] TNP [facility] Comment on above: Test not performed Glucose [Mass/volume] in Ser um or PlasmaOrdered By: Ryan Poe on 12-18-2022 Glucose [Mass/Vol] 93 mg/dL 70-100 [facility] Comment on above: ADA recommended refe rence rangeRandom Glucose Reference Range is dependent on time and content of last meal. Glucose of more than 200 mg/dL in a nonstressed, ambulatory subject supports the diagnosis of Diabetes Mellitus. Hematocrit Auto (Bld) [Volum e fraction]Ordered By: Ryan Poe on 12-18-2022 Hematocrit (Bld) [Volume fraction] 36.2 % 34.0-46.4 [facility] Hemoglobin [Mass/volume] in BloodOrdered By: Ryan Poe on 12-18-2022 Hemoglobin (Bld) [Mass/Vol] 11.9 g/dL 11.8-15.4 [facility] Leukocytes [#/volume] correc osmel for nucleated erythrocytes in Blood by Automated counOrdered By: Ryan Poe on 12-18-2022 WBC corrected for nucl RBC Auto (Bld) [#/Vol] 10.3 10*3/uL 3.8-11.6 [facility] Lipase [Enzymatic activity/v olume] in Serum or PlasmaOrdered By: Ryan Poe on 12-18-2022 Lipase [Catalytic activity/Vol] 29.0 U/L 11.0-82.0 [facility] Lymphocytes Auto (Bld) [#/Vo l]Ordered By: Ryan Poe on 12-18-2022 Lymphocytes (Bld) [#/Vol] 2.2 10*3/uL 1.00-4.8 [facility] Lymphocytes/100 WBC Auto (Bl d)Ordered By: yRan Poe on 12-18-2022 Lymphocytes/100 WBC (Bld) 21.8 % . [facility] MCH Auto (RBC) [Entitic mass ]Ordered By: Ryan Poe on 12-18-2022 MCH (RBC) [Entitic mass] 26.9 pg 24.7-34.3 [facility] MCHC Auto (RBC) [Mass/Vol]Or dered By: Ryan Poe on 12-18-2022 MCHC (RBC) [Mass/Vol] 32.8 g/dL 32.0-35.0 [facility] MCV Auto (RBC) [Entitic vol] Ordered By: Ryan Poe on 12-18-2022 MCV (RBC) [Entitic vol] 82.1 fL 80-100 [facility] Monocyte distribution width [Entitic volume] in Blood by AutomatedOrdered By: Ryan Poe on 12-18-2022 Monocyte distribution width Auto (Bld) [Entitic vol] 22.19 % 0.00-20.00 [facility] Comment on above: For adults in ED, MD W > 20.0 may be associated with a higher risk of sepsis during the first 12 hrs of hospital admission Monocytes Auto (Bld) [#/Vol] Ordered By: Ryan Poe on 12-18-2022 Monocytes (Bld) [#/Vol] 0.8 10*3/uL 0.0-0.8 [facility] Monocytes/100 WBC Auto (Bld) Ordered By: Ryan Poe on 12-18-2022 Monocytes/100 WBC (Bld) 7.4 % . [facility] Neutrophils Auto (Bld) [#/Vo l]Ordered By: Ryan Poe on 12-18-2022 Neutrophils (Bld) [#/Vol] 7.2 10*3/uL 1.8-7.7 [facility] Neutrophils/100 WBC Auto (Bl d)Ordered By: Ryan Poe on 12-18-2022 Neutrophils/100 WBC (Bld) 69.9 % . [facility] No Panel InformationOrdered By: Ryan Poe on 12-18-2022 Estimated GFR (CKD-EPI) > 60.0 mL/Min [facility] Creatinine Clearance (Chem 98.76 [facility] Nucleated erythrocytes [Pres ence] in Blood by Automated countOrdered By: Ryan Poe on 12-18-2022 Nucleated RBC Auto Ql (Bld) 0.1 /100{WBC} 0-0.5 [facility] Platelet mean volume Auto (B ld) [Entitic vol]Ordered By: Ryan Poe on 12-18-2022 Platelet mean volume (Bld) [Entitic vol] 8.1 fL 6.3-10.7 [facility] Platelets Auto (Bld) [#/Vol] Ordered By: Ryan Poe on 12-18-2022 Platelets (Bld) [#/Vol] 223 10*3/uL 150-450 [facility] Potassium [Moles/volume] in Serum or PlasmaOrdered By: Ryan Poe on 12-18-2022 Potassium [Moles/Vol] 3.5 mmol/L 3.5-5.1 [facility] RBC Auto (Bld) [#/Vol]Ordere d By: Ryan Poe on 12-18-2022 RBC (Bld) [#/Vol] 4.42 10*6/uL 3.60-5.00 [facility] Serum or plasma anion gap de terminationOrdered By: Ryan Poe on 12-18-2022 Anion gap [Moles/Vol] 14.5 mmol/L 6.0-15.0 [facility] Sodium [Moles/volume] in Ser um or PlasmaOrdered By: Ryan Poe on 12-18-2022 Sodium [Moles/Vol] 136 mmol/L 136-145 [facility] Urea nitrogen [Mass/volume] in Serum or PlasmaOrdered By: Ryan Poe on 12-18-2022 Urea nitrogen [Mass/Vol] 21 mg/dL 7-25 [facility] WBC Auto (Bld) [#/Vol]Ordere d By: Ryan Poe on 12-18-2022 WBC (Bld) [#/Vol] 10.3 10*3/uL 3.8-11.6 [facility] PRBC LEUKOREDUCEDon 07-14-19 ABO and Rh group Nom (Bld) Cross Match Result Compatible Unit Blood Type A Pos Unit Number [id number] Status Information Released Specimen Exp Date Product ID Red Blood Cells Product Code [id number] Cross Match Result Compatible Unit Blood Type A Pos Unit Number [id number] Status Information Transfused Product ID Red Blood Cells Product Code [id number] Normal [facility] Comment on above: Performed By: #### R UBIGG #### [facility] [address] [place] [address] Dr. Juan Antonio Ibarra CBC AUTO DIFFon 07-07-2022 BASO # 0.0 103/ul Normal 0.0-0.1 [facility] Comment on above: Performed By: #### A 1C #### [facility] [address] [place] [address] Dr. Juan Antonio Ibarra Basophils/100 WBC (Bld) 0.3 % Normal 0.2-2.0 [facility] Comment on above: Performed By: #### A 1C #### [facility] [address] [place] [address] Dr. Juan Antonio Ibarra EO # 0.1 103/ul Normal 0.0-0.7 [facility] Comment on above: Performed By: #### A 1C #### [facility] [address] [place] [address] Dr. Juan Antonio Ibarra Eosinophils/100 WBC (Bld) 0.9 % Normal 0.9-7.0 [facility] Comment on above: Performed By: #### A 1C #### [facility] [address] [place] [address] Dr. Juan Antonio Ibarra Erythrocyte distribution width (RBC) [Ratio] 14.5 % Normal 11.0-15.0 [facility] Comment on above: Performed By: #### A 1C #### [facility] [address] [place] [address] Dr. Juan Antonio Ibarra Hematocrit (Bld) [Volume fraction] 22.5 % Critically low 36.0-48.0 [facility] Comment on above: Performed By: #### A 1C #### [facility] [address] [place] [address] Dr. Juan Antonio Ibarra Hemoglobin (Bld) [Mass/Vol] 7.9 g/dL Critically low 12.0-16.0 [facility] Comment on above: Performed By: #### A 1C #### [facility] [address] [place] [address] Dr. Juan Antonio Ibarra IG # 0.10 10e3/ul Critically high 0.00-0.03 [facility] Comment on above: Performed By: #### A 1C #### [facility] [address] [place] [address] Dr. Juan Antonio Ibarra IG % 0.9 % Critically high 0.0-0.5 [facility] Comment on above: Performed By: #### A 1C #### [facility] [address] [place] [address] Dr. Juan Antonio Ibarra LYMPH # 1.6 103/ul Normal 1.2-3.8 [facility] Comment on above: Performed By: #### A 1C #### [facility] [address] [place] [address] Dr. Juan Antonio Ibarra Lymphocytes/100 WBC (Bld) 14.0 % Critically low 20.5-60.0 [facility] Comment on above: Performed By: #### A 1C #### [facility] [address] [place] [address] Dr. Juan Antonio Ibarra MANUAL DIFF REQ NO Normal [facility] Comment on above: Performed By: #### A 1C #### [facility] [address] [place] [address] Dr. Juan Antonio Ibarra MCH (RBC) [Entitic mass] 26.4 pg Critically low 26.7-34.0 [facility] Comment on above: Performed By: #### A 1C #### [facility] [address] [place] [address] Dr. Juan Antonio Ibarra MCHC (RBC) [Mass/Vol] 35.1 g/dL Normal 29.9-35.2 [facility] Comment on above: Performed By: #### A 1C #### [facility] [address] [place] [address] Dr. Juan Antonio Ibarra MCV (RBC) [Entitic vol] 75.3 fL Critically low 81.0-99.0 [facility] Comment on above: Performed By: #### A 1C #### [facility] [address] [place] [address] Dr. Juan Antonio Ibarra MONO # 0.7 103/ul Normal 0.3-0.8 [facility] Comment on above: Performed By: #### A 1C #### [facility] [address] [place] [address] Dr. Juan Antonio Ibarra Monocytes/100 WBC (Bld) 6.2 % Normal 1.7-12.0 [facility] Comment on above: Performed By: #### A 1C #### [facility] [address] [place] [address] Dr. Juan Antonio Ibarra NEUT # 9.1 103/ul Critically high 1.4-6.5 [facility] Comment on above: Performed By: #### A 1C #### [facility] [address] [place] [address] Dr. Juan Antonio Ibarra Neutrophils/100 WBC (Bld) 77.7 % Critically high 43.0-75.0 [facility] Comment on above: Performed By: #### A 1C #### [facility] [address] [place] [address] Dr. Juan Antonio Ibarra Platelet mean volume (Bld) [Entitic vol] 9.2 fL Critically low 9.5-13.5 [facility] Comment on above: Performed By: #### A 1C #### [facility] [address] [place] [address] Dr. Juan Antonio Ibarra PLT 143 103/ul Critically low 150-450 [facility] Comment on above: Performed By: #### A 1C #### [facility] [address] [place] [address] Dr. Juan Antonio Ibarra RBC 2.99 106/ul Critically low 4.20-5.40 [facility] Comment on above: Performed By: #### A 1C #### [facility] [address] [place] [address] Dr. Juan Antonio Ibarra WBC 11.7 103/ul Critically high 4.0-11.0 [facility] Comment on above: Performed By: #### A 1C #### [facility] [address] [place] [address] Dr. Juan Antonio Ibarra CBC AUTO DIFFon 07-06-2022 BASO # 0.0 103/ul Normal 0.0-0.1 [facility] Comment on above: Performed By: #### A 1C #### [facility] [address] [place] [address] Dr. Juan Antonio Ibarra Basophils/100 WBC (Bld) 0.3 % Normal 0.2-2.0 [facility] Comment on above: Performed By: #### A 1C #### [facility] [address] [place] [address] Dr. Juan Antonio Ibarra EO # 0.1 103/ul Normal 0.0-0.7 [facility] Comment on above: Performed By: #### A 1C #### [facility] [address] [place] [address] Dr. Juan Antonio Ibarra Eosinophils/100 WBC (Bld) 0.8 % Critically low 0.9-7.0 [facility] Comment on above: Performed By: #### A 1C #### [facility] [address] [place] [address] Dr. Juan Antonio Ibarra Erythrocyte distribution width (RBC) [Ratio] 14.3 % Normal 11.0-15.0 [facility] Comment on above: Performed By: #### A 1C #### [facility] [address] [place] [address] Dr. Juan Antonio Ibarra Hematocrit (Bld) [Volume fraction] 23.0 % Critically low 36.0-48.0 [facility] Comment on above: Performed By: #### A 1C #### [facility] [address] [place] [address] Dr. Juan Antonio Ibarra Hemoglobin (Bld) [Mass/Vol] 7.5 g/dL Critically low 12.0-16.0 [facility] Comment on above: Performed By: #### A 1C #### [facility] [address] [place] [address] Dr. Juan Antonio Ibarra IG # 0.07 10e3/ul Critically high 0.00-0.03 [facility] Comment on above: Performed By: #### A 1C #### [facility] [address] [place] [address] Dr. Juan Antonio Ibarra IG % 0.6 % Critically high 0.0-0.5 [facility] Comment on above: Performed By: #### A 1C #### [facility] [address] [place] [address] Dr. Juan Antonio Ibarra LYMPH # 2.1 103/ul Normal 1.2-3.8 [facility] Comment on above: Performed By: #### A 1C #### [facility] [address] [place] [address] Dr. Juan Antonio Ibarra Lymphocytes/100 WBC (Bld) 18.8 % Critically low 20.5-60.0 [facility] Comment on above: Performed By: #### A 1C #### [facility] [address] [place] [address] Dr. Juan Antonio Ibarra MANUAL DIFF REQ NO Normal [facility] Comment on above: Performed By: #### A 1C #### [facility] [address] [place] [address] Dr. Juan Antonio Ibarra MCH (RBC) [Entitic mass] 26.0 pg Critically low 26.7-34.0 [facility] Comment on above: Performed By: #### A 1C #### [facility] [address] [place] [address] Dr. Juan Antonio Ibarra MCHC (RBC) [Mass/Vol] 32.6 g/dL Normal 29.9-35.2 [facility] Comment on above: Performed By: #### A 1C #### [facility] [address] [place] [address] Dr. Juan Antonio Ibarra MCV (RBC) [Entitic vol] 79.9 fL Critically low 81.0-99.0 [facility] Comment on above: Performed By: #### A 1C #### [facility] [address] [place] [address] Dr. Juan Antonio Ibarra MONO # 0.7 103/ul Normal 0.3-0.8 [facility] Comment on above: Performed By: #### A 1C #### [facility] [address] [place] [address] Dr. Juan Antonio Ibarra Monocytes/100 WBC (Bld) 6.6 % Normal 1.7-12.0 [facility] Comment on above: Performed By: #### A 1C #### [facility] [address] [place] [address] Dr. Juan Antonio Ibarra NEUT # 8.2 103/ul Critically high 1.4-6.5 [facility] Comment on above: Performed By: #### A 1C #### [facility] [address] [place] [address] Dr. Juan Antonio Ibarra Neutrophils/100 WBC (Bld) 72.9 % Normal 43.0-75.0 [facility] Comment on above: Performed By: #### A 1C #### [facility] [address] [place] [address] Dr. Juan Antonio Ibarra Platelet mean volume (Bld) [Entitic vol] 9.8 fL Normal 9.5-13.5 [facility] Comment on above: Performed By: #### A 1C #### [facility] [address] [place] [address] Dr. Juan Antonio Ibarra PLT 151 103/ul Normal 150-450 [facility] Comment on above: Performed By: #### A 1C #### [facility] [address] [place] [address] Dr. Juan Antonio Ibarra RBC 2.88 106/ul Critically low 4.20-5.40 [facility] Comment on above: Performed By: #### A 1C #### [facility] [address] [place] [address] Dr. Juan Antonio Ibarra WBC 11.3 103/ul Critically high 4.0-11.0 [facility] Comment on above: Performed By: #### A 1C #### [facility] [address] [place] [address] Dr. Juan Antonio Ibarra CBC AUTO DIFFon 07-05-2022 BASO # 0.0 103/ul Normal 0.0-0.1 [facility] Comment on above: Performed By: #### R PRQ #### [facility] [address] [place] [address] Dr. Juan Antonio Ibarra Basophils/100 WBC (Bld) 0.2 % Normal 0.2-2.0 [facility] Comment on above: Performed By: #### R PRQ #### [facility] [address] [place] [address] Dr. Juan Antonio Ibarra EO # 0.0 103/ul Normal 0.0-0.7 [facility] Comment on above: Performed By: #### R PRQ #### [facility] [address] [place] [address] Dr. Juan Antonio Ibarra Eosinophils/100 WBC (Bld) 0.4 % Critically low 0.9-7.0 [facility] Comment on above: Performed By: #### R PRQ #### [facility] [address] [place] [address] Dr. Juan Antonio Ibarra Erythrocyte distribution width (RBC) [Ratio] 14.2 % Normal 11.0-15.0 [facility] Comment on above: Performed By: #### R PRQ #### [facility] [address] [place] [address] Dr. Juan Antonio Ibarra Hematocrit (Bld) [Volume fraction] 31.0 % Critically low 36.0-48.0 [facility] Comment on above: Performed By: #### R PRQ #### [facility] [address] [place] [address] Dr. Juan Antonio Ibarra Hemoglobin (Bld) [Mass/Vol] 10.1 g/dL Critically low 12.0-16.0 [facility] Comment on above: Performed By: #### R PRQ #### [facility] [address] [place] [address] Dr. Juan Antonio Ibarra IG # 0.10 10e3/ul Critically high 0.00-0.03 [facility] Comment on above: Performed By: #### R PRQ #### [facility] [address] [place] [address] Dr. Juan Antonio Ibarra IG % 1.1 % Critically high 0.0-0.5 [facility] Comment on above: Performed By: #### R PRQ #### [facility] [address] [place] [address] Dr. Juan Antonio Ibarra LYMPH # 1.6 103/ul Normal 1.2-3.8 [facility] Comment on above: Performed By: #### R PRQ #### [facility] [address] [place] [address] Dr. Juan Antonio Ibarra Lymphocytes/100 WBC (Bld) 17.5 % Critically low 20.5-60.0 [facility] Comment on above: Performed By: #### R PRQ #### [facility] [address] [place] [address] Dr. Juan Antonio Ibarra MANUAL DIFF REQ NO Normal [facility] Comment on above: Performed By: #### R PRQ #### [facility] [address] [place] [address] Dr. Juan Antonio Ibarra MCH (RBC) [Entitic mass] 25.8 pg Critically low 26.7-34.0 [facility] Comment on above: Performed By: #### R PRQ #### [facility] [address] [place] [address] Dr. Juan Antonio Ibarra MCHC (RBC) [Mass/Vol] 32.6 g/dL Normal 29.9-35.2 [facility] Comment on above: Performed By: #### R PRQ #### [facility] [address] [place] [address] Dr. Juan Antonio Ibarra MCV (RBC) [Entitic vol] 79.3 fL Critically low 81.0-99.0 [facility] Comment on above: Performed By: #### R PRQ #### [facility] [address] [place] [address] Dr. Juan Antonio Ibarra MONO # 0.7 103/ul Normal 0.3-0.8 [facility] Comment on above: Performed By: #### R PRQ #### [facility] [address] [place] [address] Dr. Juan Antonio Ibarra Monocytes/100 WBC (Bld) 8.1 % Normal 1.7-12.0 [facility] Comment on above: Performed By: #### R PRQ #### [facility] [address] [place] [address] Dr. Juan Antonio Ibarra NEUT # 6.7 103/ul Critically high 1.4-6.5 [facility] Comment on above: Performed By: #### R PRQ #### [facility] [address] [place] [address] Dr. Juan Antonio Ibarra Neutrophils/100 WBC (Bld) 72.7 % Normal 43.0-75.0 [facility] Comment on above: Performed By: #### R PRQ #### [facility] [address] [place] [address] Dr. Juan Antonio Ibarra Platelet mean volume (Bld) [Entitic vol] 10.1 fL Normal 9.5-13.5 [facility] Comment on above: Performed By: #### R PRQ #### [facility] [address] [place] [address] Dr. Juan Antonio Ibarra PLT 202 103/ul Normal 150-450 [facility] Comment on above: Performed By: #### R PRQ #### [facility] [address] [place] [address] Dr. Juan Antonio Ibarra RBC 3.91 106/ul Critically low 4.20-5.40 [facility] Comment on above: Performed By: #### R PRQ #### [facility] [address] [place] [address] Dr. Juan Antonio Ibarra WBC 9.2 103/ul Normal 4.0-11.0 [facility] Comment on above: Performed By: #### R PRQ #### [facility] [address] [place] [address] Dr. Juan Antonio Ibarra DRUG SCREEN RAPID (URINE)on 07-05-2022 AMP Negative Normal NEGATIVE [facility] Comment on above: Performed By: #### A 1C #### [facility] [address] [address] [address] Juan Antonio Ibarra BAR Negative Normal NEGATIVE [facility] Comment on above: Performed By: #### A 1C #### [facility] [address] [address] [address] Juan Antonio Ibarra BUP Negative Normal NEGATIVE [facility] Comment on above: Performed By: #### A 1C #### [facility] [address] [place] [address] Dr. Juan Antonio Ibarra BZO Negative Normal NEGATIVE [facility] Comment on above: Performed By: #### A 1C #### [facility] [address] [place] [address] Dr. Juan Antonio Ibarra PARAM Negative Normal NEGATIVE [facility] Comment on above: Performed By: #### A 1C #### [facility] [address] [place] [address] Dr. Juan Antonio Ibarra CUT-OFFS SEE BELOW Normal [facility] Comment on above: Result Comment: [...] ng/mL Performed By: #### A 1C #### [facility] [address] [place] [address] Dr. Juan Antonio Ibarra DRUG CUT HEADER DRUG CLASS TEST SYST EM CUT-OFF CONCENTRATIONS ARE FOLLOWS: Normal [facility] Comment on above: Performed By: #### A 1C #### [facility] [address] [place] [address] Dr. Juan Antonio Ibarra mAMP Negative Normal NEGATIVE [facility] Comment on above: Performed By: #### A 1C #### [facility] [address] [place] [address] Dr. Juan Antonio Ibarra MTD Negative Normal NEGATIVE [facility] Comment on above: Performed By: #### A 1C #### [facility] [address] [place] [address] Dr. Juan Antonio Ibarra OPI Negative Normal NEGATIVE [facility] Comment on above: Performed By: #### A 1C #### [facility] [address] [place] [address] Dr. Juan Antonio Ibarra OXY Negative Normal NEGATIVE [facility] Comment on above: Performed By: #### A 1C #### [facility] [address] [place] [address] Dr. Juan Antonio Ibarra PCP Negative Normal NEGATIVE [facility] Comment on above: Performed By: #### A 1C #### [facility] [address] [place] [address] Dr. Juan Antonio Ibarra PPX Negative Normal NEGATIVE [facility] Comment on above: Performed By: #### A 1C #### [facility] [address] [place] [address] Dr. Juan Antonio Ibarra TCA Negative Normal NEGATIVE [facility] Comment on above: Performed By: #### A 1C #### [facility] [address] [place] [address] Dr. Juan Antonio Ibarra THC Negative Normal NEGATIVE [facility] Comment on above: Performed By: #### A 1C #### [facility] [address] [place] [address] Dr. Juan Antonio Ibarra TYPE AND SCREENon 07-05-2022 TYPE AND SCREEN Negative Normal [facility] Comment on above: Performed By: #### T NS #### [facility] [address] [place] [address] Dr. Juan Antonio Ibarra US PREG BIOPHY [...] by: FELECIA GOLDMAN Date: 2022-06-28 15:29 Normal [facility] US PREG BIOPHY W NON [...] by: FELECIA GOLDMAN Date: 2022-06-21 17:20 Normal [facility] US PREG GROWTHon 06-21-2022 US [...] GAMALIEL MARTEL Date: 2022-06-21 13:37 Normal [facility] CULTURE URINEon 06-16-2022 CULTURE URINE Culture Observations : LIGHT GROWTH OF MIXED GENITAL ALONSO. NO POTENTIAL PATHOGENS SEEN. Normal [facility] Comment on above: Performed By: #### U RCX #### [facility] [address] [place] [address] Dr. 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 Juan Antonio Ibarra Clarity (U) CLEAR Normal CLEAR [facility] Comment on above: Performed By: #### U MICRO, UACSIND #### [facility] [address] [place] [address] Dr. Juan Antonio Ibarra Color (U) LT. YELLOW Normal YELLOW [facility] Comment on above: Performed By: #### U MICRO, UACSIND #### [facility] [address] [place] [address] Dr. Juan Antonio Ibarra Glucose Ql (U) Negative Normal NEGATIVE [facility] Comment on above: Performed By: #### U MICRO, UACSIND #### [facility] [address] [place] [address] Dr. Juan Antonio Ibarra Hemoglobin Ql (U) Negative Normal NEGATIVE [facility] Comment on above: Performed By: #### U MICRO, UACSIND #### [facility] [address] [place] [address] Dr. Juan Antonio Ibarra Ketones Ql (U) Negative Normal NEGATIVE [facility] Comment on above: Performed By: #### U MICRO, UACSIND #### [facility] [address] [place] [address] Dr. Juan Antonio Ibarra LEUKOCYTES MODERATE Abnormal NEGATIVE [facility] Comment on above: Performed By: #### U MICRO, UACSIND #### [facility] [address] [place] [address] Dr. Juan Antonio Ibarra Nitrite Ql (U) Negative Normal NEGATIVE [facility] Comment on above: Performed By: #### U MICRO, UACSIND #### [facility] [address] [place] [address] Dr. Juan Antonio Ibarra pH (U) 6.0 [pH] Normal 5-9 [facility] Comment on above: Performed By: #### U MICRO, UACSIND #### [facility] [address] [place] [address] Dr. Juan Antonio Ibarra SPEC GRAVITY 1.020 Normal 1.005-<=1. 025 [facility] Comment on above: Performed By: #### U MICRO, UACSIND #### [facility] [address] [place] [address] Dr. Juan Antonio Ibarra UA PROTEIN Negative Normal NEGATIVE/ TRACE [facility] Comment on above: Performed By: #### U MICRO, UACSIND #### [facility] [address] [place] [address] Dr. Juan Antonio Ibarra UR MICRO IND INDICATED Normal [facility] Comment on above: Performed By: #### U MICRO, UACSIND #### [facility] [address] [place] [address] Dr. Juan Antonio Ibarra Urobilinogen Qn (U) 1.0 {Pamela'U}/dL Normal 0.2 - 1. 0 [facility] Comment on above: Performed By: #### U MICRO, UACSIND #### [facility] [address] [place] [address] Dr. Juan Antonio Ibarra URINE MICROSCOPIC ONLYon BACTERIA SMALL Abnormal NONE SEEN [facility] Comment on above: Performed By: #### U MICRO, UACSIND #### [facility] [address] [place] [address] Dr. Juan Antonio Ibarra Bacteria identified Cx Nom (U) INDICATED Normal [facility] Comment on above: Performed By: #### U MICRO, UACSIND #### [facility] [address] [place] [address] Dr. Juan Antonio Ibarra CAST NONE SEEN Normal NONE SEEN [facility] Comment on above: Performed By: #### U MICRO, UACSIND #### [facility] [address] [place] [address] Dr. Juan Antonio Ibarra Crystals LM Nom (Urine sed) NONE SEEN Normal NONE SEEN [facility] Comment on above: Performed By: #### U MICRO, UACSIND #### [facility] [address] [place] [address] Dr. Juan Antonio Ibarra Epithelial cells LM Ql (Urine sed) RARE Normal NONE SEEN /RARE [facility] Comment on above: Performed By: #### U MICRO, UACSIND #### [facility] [address] [place] [address] Dr. Juan Antonio Ibarra MUCOUS NONE SEEN Normal NONE SEEN [facility] Comment on above: Performed By: #### U MICRO, UACSIND #### [facility] [address] [place] [address] Dr. Juan Antonio Ibarra RBC NONE SEEN Abnormal 0-2 [facility] Comment on above: Performed By: #### U MICRO, UACSIND #### [facility] [address] [place] [address] Dr. Juan Antonio Ibarra WBC 2-5 Abnormal NONE SEEN [facility] Comment on above: Performed By: #### U MICRO, UACSIND #### [facility] [address] [place] [address] Dr. Juan Antonio Ibarra GROUP B STREP CULTUREon 05-18 S. agalactiae Ag Ql (Unsp spec) Culture Observations: NEGATIVE FOR GROUP B STREPTOCOCCUS. Normal [facility] Comment on above: Performed By: #### G BSCX #### [facility] [address] [place] [address] Dr. Juan Antonio Ibarra US PREG BIOPHY [...] by: GAMALIEL MARTEL Date: 2022-06-14 16:10 Normal [facility] US PREG BIOPHY W NON [...] by: FELECIA GOLDMAN Date: 2022-06-07 16:42 Normal [facility] PREG BIOPHY W NON STRESSo n [...] by: FELECIA GOLDMAN Date: 2022-06-04 17:11 Normal [facility] US PREG BIOPHY W NON [...] by: FELECIA GOLDMAN Date: 2022-06-04 16:23 Normal [facility] US PREG BIOPHY W NON [...] by: GAMALIEL MARTEL Date: 2022-05-31 18:39 Normal [facility] US PREG BIOPHY W NON [...] by: FELECIA GOLDMAN Date: 2022-05-24 16:34 Normal [facility] US PREG GROWTHon 05-24-2022 US [...] FELECIA GOLDMAN Date: 2022-05-24 16:33 Normal [facility] GLUCOSE - 1HRon 04-04-2022 Glucose [Mass/Vol] 101 mg/dL Normal 74-106 [facility] Comment on above: Performed By: #### R PRQ #### [facility] [address] [place] [address] Dr. Juan Antonio Ibarra HEMOGRAM AND PLATELon 2021 Hematocrit (Bld) [Volume fraction] 33.5 % Critically low 36.0-48.0 [facility] Comment on above: Performed By: #### A 1C #### [facility] [address] [place] [address] Dr. Juan Antonio Ibarra Hemoglobin (Bld) [Mass/Vol] 10.7 g/dL Critically low 12.0-16.0 [facility] Comment on above: Performed By: #### A 1C #### [facility] [address] [place] [address] Dr. Juan Antonio Ibarra MCH (RBC) [Entitic mass] 29.3 pg Normal 26.7-34.0 [facility] Comment on above: Performed By: #### A 1C #### [facility] [address] [place] [address] Dr. Juan Antonio Ibarra MCHC (RBC) [Mass/Vol] 31.9 g/dL Normal 29.9-35.2 [facility] Comment on above: Performed By: #### A 1C #### [facility] [address] [place] [address] Dr. Juan Antonio Ibarra MCV (RBC) [Entitic vol] 91.8 fL Normal 81.0-99.0 [facility] Comment on above: Performed By: #### A 1C #### [facility] [address] [place] [address] Dr. Juan Antonio Ibarra PLT 179 103/ul Normal 150-450 [facility] Comment on above: Performed By: #### A 1C #### [facility] [address], [place] [address] Dr. Juan Antonio Ibarra RBC 3.65 106/ul Critically low 4.20-5.40 [facility] Comment on above: Performed By: #### A 1C #### [facility] [address], [place] [address] Dr. Juan Antonio Ibarra WBC 9.9 103/ul Normal 4.0-11.0 [facility] Comment on above: Performed By: #### A 1C #### [facility] [address], [place] [address] Dr. Juan Antonio Ibarra US PREG REEVAL [...] FELECIA GOLDMAN Date: 2022-03-20 20:55 Normal [facility] US PREG ANATOMY SINGLEon US PREG [...] by: FELECIA GOLDMAN Date: 2022-02-22 16:46 Normal [facility] Coding Summaryon 02-14-2022 Coding Summary HTMLBase 64 RlbnjswmIYb2mLs+PGhlYWQ+PE 1CQIOcI18dcCYifA8CY6fKFP2N MMXJGEXNCP5HOI2yuDF4QAafF5 VybiAv QmdsvHFiBJ37GFc9OQD1sKjnKE uebE7wpDDeB2f5UhCyZT08bY31 ADnhYBHcMmC6KkRgldwbiLUf D9tmLwBloODyRnz+PHRhYmxlIH boVYKxMFqjEVWrEtVvsKflVT6x Jg8uTFGeOPMyvLbumPAoVpAi i1qiLYSmGXvyCQ2wvIbgI2ZkcC Q5OZZcw7c2Jc99dEM+PHRkIHN0 fIntSVeqc876JhObz0gnUPF3 aDXuHNekROK3Q81tb7J7DKIuKV RzWQF7cPD2qM1qrGdjfhodM7Ts kYDlNyK5FHM2oMSsoQ9wzJlo vtshvX5wVon+J04XXV3IJQLMZG 7EQts3Z2JsDwtuvLP+QC90OFZh ZS31xXJfzDEzc3bteRk8BrEj UTRrTPY2gGebHMtby5MaQDDvO8 5doRGko8U7DONjkBjyuCPdKtVx pCX6tG7sOBtyrapri5dthfqt Isill5rmzb63wF48M04jIHxeZS MiGTR9YSKsKAKqcFsfcn2xhT1y Ii8+VVhad5sln4ksbFc5LaSx ZDVbatUurQxbDTT3q7JwCs24W8 GcoEgjd1IcRem0jr23oMXla9A4 pVS8PVmvWEDzcJ4fDQzsKpF7 IUZbUwVzyT58oJXlRLowLv8beT uyeDbgYY0oHSJqlxbfWBNiyH4p BROpqFAbuVkpRE9qMAVtxsav u125OtGfKFT2CRMwcLFlR5WwmT 9rJqHzCVYyLZVcY1NqsYDvNUrw Z315MMwzLjG7TBAoekRcV5Gm ONRdzSevHgI1a8G8Ns7Fo4Ignc hoJTA0TEyuZXK5WfUsYuYeItW0 K3QdErz5KEQrzCbdTX2eE0Rs BMOhlwvfahqoxJK7EUPwAQSdaB 75xZDeNVfiAj1lc2V6t169RKVu LKHcrF13Zf1uoDzsIIYxzQFU hY2bopjlg4cvpsvySaWdIYFcHN d4DGp6DQNndQinCxLtOYX6OqR3 ZHV9uWBdtU7snBrwcmjjjI6w Oyc+K79blD3mTBR5GTT5cbjbVN VrczTwDY20ZE27P5XpBssejMKn bGU+LNCjroQlqJocGW7fGwCh g6atk4CfJMusE5LgZGCbFNecJw w3MQArWOU9nND8lW4lGVEhIZpt t4M6tHC8D5XwuoJqke1bg1wx KEMbXDkoB43ucEJzy3O7DLFrtK V1RESptAfpCkTaoJ14Fou+PGNv mQeuc3DtXxgge6lpr4msiFp7 YpNfOGMlgyZorKofSHX9u6HsXj 42Y09dKXfqLJXdQHHhJJYgCORw uYsjwy4mqC4qJd4+PGNvbCB3 dZT1hB3lJQAlCpB4OGwoJ257Qx KzeSAiCvxrm6xew0ixpXc1KeWr CCWgmoOhfLvdPDS1i3LaFv80 Z14hSBjiIHHaDVDbOJTtWGXnoE ucuq5jtK7fEt3+BS4zj5zqzv87 uM54xXE+CEAkDMS9aZqwILgy EXPfqG6qLAhcZoV3UUOwFlQexD 47kKEcVYgqVi6dmZgsnQfwKW9b TPCawrwbc550XuZds4laRGOz nOFvJLjoVAG6B09ij4T5BCPbVR RbWRH5hME3lF4jwChtaejxnUAx mEkdedQwkPkqCVyyIWqkS010 IHRvcDsnPlBhdGllbnQgTmFtZT k4P5FxEqa9NDTjpWvjRS0jzOMa YGvxLx3rkXzncKkpKZ3zVOBx lpnlq827WlHut8otJTRavMExEL rhSHA3X89vt8Y4GHQcIJVxAAM2 jQJ8eZ5zuEyzvkwoiEXvvRne kvMrjCldBJgcTVfcV982BBLfmQ cyXbBuxlJqMRWuaHN9SH63RZ05 gMMsl3G8lQQ5D3EzYNPhdpzc hmyucLM0WRNtVAGbvD95Eb9vyH wsMy9gPFZqJAV5VTAwnJOoX6Fr kT4kJcLdNDBaCJGiA3IvwEYp HXlkA098UQnvFoO9MOTqjnTcP3 RhTOCyzYauAlJ9n9L3Wy0OV6L9 TW46FX34aMLkq0R0bBS9K2Cy XRYjlkuqrumjsFN4DVFfPSSaxE 26Kj2kgSyqJv5eFLOkAFN2MTDo wXSjZ6UqpM4cHzJuSUDpPZAz S9IrlPJuYJzbB437NChtXyU0FN OyuzJkO0SnORYmvCrqOgR7e1W0 Yf6RODd9QZ47SU63wWWkv8W3 gDB1T9WgUPKgoflqjlvoqCH3KA ZfGXHtlQ26Vb5eqUahNv7gXBLm HTI7ZTFseJVlZ2BhzE0qGtVc KYJhJUZgK2HliPLkLPydH213MP fcDuI7FXJdnmElX0IxUILoaZfv TlF5g3V0Ju7TBZHwYG92AHY2 xMC9EH93JI42E7WsPfwerWEsgO U+PHRhYmxlIHdpZHRoPScxMDAl QpEouWwoCR7gUu7bLMQvVYPf oHirzNLmXnObs8biIRRzFMrwAL 7ruVdgH2PoxJY8VLTcc3s9Pi83 E91eT3OlfRR+LTNhgQD4tSH3 xC9oRlVkFzF0UVngO586MmOzaL YoEdxpz9edg4cynPs9CgU6QVCb xzGocHmxJNJ4v6UgHe63H80h IHdpZHRoPSIxNSUiIHZhbGlnbj 8btA8oHz1+BLAxjKW4bPI9xM3v KsFbTsN6TIwnL663SdCbjZRs Rgstw8xbf6henBn8JlXbPAHeqx SqhYepUMW4z6OpWo70K0WqoKzi w5QiGna8ei50mHVqp8H2fUK8 S0XsJSKanmqdqIEjiWmxKC7iWI BnjbdwKWEazM3hGDRtT6m8XePv NxN5GDrlB9MzrkH1IJGyrUSe KEcnZYN3Q52ov6O8SINzYJHyRL L7iBK9bF6csKwnvjngeSGluMgb rsEboUwlFDwbCVszP385OULo dYiuCSBamK4gLGCesGWfzNqcTP 4wNTBpbjsnPlNURUlOLCBWSVJH BQ2CGQCDCZG6N6TxKnf7MZJl wFvaCO0ewNNbPQsmZt8fyHqvmI neLM0wFXPumeauLPJeiM5xKTDl xVMmhFtxWD9fVLHczchvw467 SxRuVDL0HEXlrFMjE4AxsF5tAf DgVXHmUIQtT9YvfMNsNNuuY153 BCfpMkU3TSGdplQbA7OhYMNx sAyoMmA6p8J5Tf0rMU9yBB5xTB zaMH26GN68cXZrj5R1eVH2Q0Uy QPZpyootlgdblYY4WFVgZIVi nS34aPCfGMniTe4om2X3p216MO IyOYPxtI52Ja4wmTzpLGXteJOY hJ8hgligu8cljrtdVvMvCRVb JKn2XZo0WLAyeHtkOwXaVOP2Ly G3LXM5vYKhyO4maWkvnpddjN3n Oyc+UwspZWPbpeY0E2XjWft1 UDYqoIvhWP2jbCExTOflOb5dvS obdRloWE6cYWNlyurzYIZzyO9a ADClkDXqxZzdBR4pAAImyury o137SqHpCZU2MZHkdJXtG0UiwL 7zXmFkUUHxWOPkK4PwnTDcZOjh H594SEciEqW8HKGhzrOfO4Gn QLOtvOgpKqE1z7P0Pf0RKC5XER U3E1AsTxi2XQXmjKakCV8szMGp QKjmHy9mmTbgiEqzYF9kNMFq orrgJCCjfX2bYWBacJHdoKxpRI 1hMNFcuiofm605ChDiPVI7WTKi zIXgK9FyyA8lHoSyJHWfCHVe A6VtlKFlPEvrU315YQazEdS8FC LplyLtW7HeZRNywBciIxL5q7H0 Jj3WQVtumHU+BP19sn12N8Wm GbhiZzu2QAZbRKZ6tYL6uM2oIE QcWWmmk6A3hWF5H9EqgwSmnd2p s1ktLRAcCCstK22neGBxg0M6 YERwdYZ4HHOloEndRbEeaJ83Sq c+WBKttJkhe1DuLmikf0sja7lw vHf2NuQrVIZpcbMiiZvtNQG8 v6BfNw69G86mEHwcLUQpZAIfYN DuMMNbhRwbiw2agN8tWw4+PGNv dEE9gEN7kL3gEzOzMuT6XXyb L059YzEvmDXmAqgmr0jio9fjaI f7ZeUzHIAhoeGbkEldQFT7u2Hk Pl15L2LefPvxr2OtLix6ow47 bUQos7E1vEY8P4CfCPKrwmexmP BssOndXJ0aMFCqhtjhFJMaxB4d OYWiY8e3MmYdYfO7EZvaB6Kh oeP9UFWekQLjTSVkhXAGwQ3xot wzk8wyqrfpDiVrCZQoAYj5LIu5 RGZgcSjpXcRhLRO7LqE7ERO7 qKZwpJ8hiRoeosxdoW8kZkh+UG n7f9oikIYyHH8nkST0WU80NL19 qNMhv0X9sQQ4B3IiRZQulluh fmuzdHL6ZGMsRPEbbA26Ha9nqU tdKr8xBEBzJRF1LZCynDSlS1Be dE2tShTyHPHpAMHfJ9WvuMYu ZArtQ280CWagXwO6KYTzmgFzJ7 DfBPOkuJbaOfI1n4V3St3JPK25 ML92TO04oDAwt5V3fRC7D8No TSSdxilkcqvakHX9TOMcGGWpzJ 44Hp2tvDvgAy1vOZAyZUN9JVNl qXUnA2FwdQ5gTvXrSSSbRGOg W7XvrIHkBNanD979SEeqXeV4GD HkdlOhT6ZxCRFjyIfoKiS2b5H7 Oz5IJf98TW59VX99oOIez8H5 oGP7B6WkCRChmjglxnkhhPE5XE QxIRJcmB18Oq7gtOpsWb0xESNl OYG5DBQvrHHvP7MshS2oLeVq KQIcECTbE5TxzIYsWQueO107OJ zcTtH5DGJuskUuM4PaGEUfoIgs VrM3b8R2Jo6RNZanmqq9U8Ta PjwvdHI+WX53DJBaJG63jUUcdP Cdb9ttnBx5PaIsYLQbSBP8bRqx ZMckn7XeCTUgQ43wyTKqh5M8 IGN (more content not included)... [facility] Coding Summary HTMLBase 64 NotzghhqGQa1gGg+PGhlYWQ+PE 7VVHIoM45rtJOpqW7OX3gFRW8O MJKECEZFGU2AFG7ubSK6TLcyE2 VybiAv YeukhXWhRP33PPg6LOZ1wFopIZ ezqE0gdUUnK6y8MnGfPX14rU15 YGffHNAhBwE3OfZkerfvxXVb J0arRuOonXLqKfm+PHRhYmxlIH hwYYHoDTpsFFKkZoXtwLsqCB9z Os0sLQYpZMWwhAdelTBuGlOl e6ngVQFsTPjsKT3ftLomT5MdsH O1VSZzw1p5Jw12dYH+PHRkIHN0 pNufPVdct684VlGwu6wvUYV2 gNJjHIihFFY8M62em6O5NOAaKU IlJKL1uYD6fL2blUhkivxqH8Fj xUBqGvF5RQY0lICaeU4lpJec bryqmN7zIfv+W72WSR4PCMITOA 8QLbs3C0SvWhbtkNB+EN75GNGm AR24aLXcqBIth4daoWn7XfGe SFOdPYC1dXdaZWqqj4JgVOUzM3 2tkNEby9F9NUOzoMzlpKXmIxWj cYJ6kI5qFCakdnijv4qyhmwj Zqdwt3escy23sT44A95tMKewVG ShHMM1GIDkDRGbzFedvy2plQ6c Ii8+WCqqb4qei7xbjHi8YiCw KYTfgdYnuHfiVVE2o6XeEj86M8 QlhFwol0XnJah1og57tFBpn9U7 hZG3HKvlJQLzrC0ySXwtJsI7 LWPiHqHdnQ50hUXuXZtmPb0vlG sasHdoUF9jVESgkizfKFJoeL3q GBXzuXLtfRtzXU7eNYIjhrkp m792JxVrNZQ0DTXlnAXyB2OltB 2vEeQfLVPuGNQxN0VyrZGaEPrd E399YFyyNzV5VJKjtnEtA0Nc MKBktUgcCyU2x2K4Br2Kb1Xluv bfPRH8LAgrIYU2FfDmOiAtQsU1 U0ZxKou6CWKosStqEJ9zF7Vb EITfenxznnotvNE8TTTpNGZbpB 37dVCnYBmkVr6ng6Y0p264MQUz NEMjmK57An5weHhwSGOlsCER dH4fnhuvp0qncznhFuXjDGUwTS o1HJv9UXNziHgsCcUwVHL7QqJ3 IJN7uRJwbR5zwFcgcxvztJ2p Oyc+P22jkH7dJUH4IQY7stsrCM MowuTvGY89RR62A9IzRnmgcVQf bGU+PXZjfgImlHbtNB7cZtPj b9mli5NxCXcyS2XqRZPaLTntFr e6XYQiCPM5wKI9sB0cFFQtJOeu v5E7mAA3T8MepoAeoh3cj6pu RPDfUHsvY19svKWkv5D3ZDPvxX R9OAGtgEwjEtBlzB74Ebm+PGNv jSwth5ZeLrfov0nfl6rrvLy0 FvAnMBShnvExaAhhIWU3o4PwZr 87Q28gZJxpAGIwPLCeYCSoGNYn nHdiot5nnS0yWe0+PGNvbCB3 vIZ5gF5nHIBrZrJ1PCzcC333Kq UyvCSzQuktj0nji9shhTa1ZoBv KTEkagFehOwsMDB0l0PoXt38 A74wVDzmEQAbAECxBNKrFNFivN khdr3esA6zSh2+WX6ut0fmop07 lB52qIK+IRWqGXZ7jHyoDSkg DHYxaJ7fYDezJjH7AAMpTbRvhG 74rSXoGQcmHf7ndMwrmRogWF0b WDYiasvhb184QrFgl6vjQLFu oXGoTYiyBBC4C54fd6I0YFWdZU QcCRI9qDZ5tT9loUiqwfqpmSWr hGmgoeYgxDnqLHynIYghY054 IHRvcDsnPlBhdGllbnQgTmFtZT h4J2VrEsi9KOUyhDuyUU0dxEAd CEfqKz1omSlmzTjpON4rWYMm qfvoi632FhOns2rqKNRbkBDwHE zdWUX4B40yh8S7CDFlPVVtDJW8 lSE5fO5huZiykihpuSHqmQif hlSflMsnBGknCIfuO045KOHmgH erJvYhwsWgEUIbaYM5HV42FY39 rRGjt4C8rLB5W8WsIBGmkfhj htvbnYS5RCZmAWGaxG98Ia2zeE psIv6cFYOgAYV2DCWcfKZbS2Xn xQ9iBfWoIAElQVJeO4NkoJCd VCsvF864NIkdLyK5KFWszkSsY1 GlQUCgrYrsPgJ2v8J5Uj8RR2P6 NQ95MP12qGZbu1T1jFQ8R1Aq DHEpvurnedbrrEU1ZLZpOOGubB 83Ri3xbPeqGx4rYJCaRLL7FTVn rRRjC9AumS7dJzEmJTXeKNIi A2BmkIPaOArhZ754NYuuEdK4MQ TatvHdE7EjYIHdrElwLoY4l0V6 Hg6VWJt7RG92HQ90sVNum5R4 fCN1A6SmQTOviyrygeeudVW6ZF AePWRjxR87Mk5fmCcjRh0aTOBk OEA8VXNxzIZjJ3VzmB5bQwSa NXRkFIArX7OgrEZbAKitZ977HG guHwZ7IPBxkbCdM8BrPEOezVpr HvQ7c1S9Su2LQLViBA83IRE1 iHG6UZ10IW62R2XcHsmemNXpqE U+PHRhYmxlIHdpZHRoPScxMDAl DuYqcForAE5wZq0uCZKeWBLr aScsgRTkCqRwe3zoJEIjADarON 1aeFmdS0GatVB8CRTqp7g4Tl79 A48mV0ZriGI+EATetNE1fTM7 fA7uHnJhRhH8MPlaU089GlMfbA UpBqiee3ubp1ivaMu4JfW3QEBy ivOimNocTXR6d8NiTy01I01n IHdpZHRoPSIxNSUiIHZhbGlnbj 4poJ0rWy6+LJKvsIC7kTT0pI8t UmYuGfP1ZBxpD562UvYmwBHu Klbac0uah1xjmFc4CnKrZZDciu LtlTpqMUC2n0LuKm18C2YiqRoz a9YaUdh3ke78sSWyz3B6sAD8 B9JrYSHfnmmgjBEtbLsaYJ4rBB TqyjhhRGPgaM5oGOWuD3q9RmRn MiF8UZjeF5BrzfW7RCXahFXj DJyqIFO9L50zk9D6IZYpANSxXQ P6aBO6rB3jkFnahdmszVSgbZae unLiuMirKFrzCWnlV150ZQPw kRrgMHHhyI4qIRXyiSNpmHkuHK 4wNTBpbjsnPlNURUlOLCBWSVJH IK0VXHNSQTG9G6NmYhn1IEFt pGdcFT6ycDKwHRfiIm8xfLxlmW qdNE7aSYOqrvrzGVUxkZ3kGWUe hIWwdOtpIO1zJXVuxhkqp534 CbXrYFC0USLmuEQoR3SyxJ8tDt BfLNZkEUWnR0VpaGXbZYtpR950 KRsfUqF8UDObllPiG5WfKGZk fZutEtR3r1L3Cu5gKJ3dVO2oFL oeEO74JE90fRTjn9Q0cAQ5S5Wr FGBhgcncvorfaLR4NLPjSNYz kQ43sSYqLQypQl0wf7P7v351VE JpOBJnrG57Dn8bnFznYTIubJYJ oY2ubagiv0gfcqxkBxOqHIFm PUx4CDr5YUNazLezZbYlNPC0Jb M8NBD4dVMvqS7keRkbjmlkwM9t Oyc+UbkeZCWdofI7K6OoEwl1 QUTliWuzEV4uyFZwXUslLt6lpF dkuLowAD0jJKMaemshPIEoiZ6j SXUzbDPmbYkcFU4fROEemzth t810DcDeYCG9KSJvvPJtI4KhwX 7jQeKuOBVyJDPnB8LvfQZkKVhp U477LPnbGdS0NSJdwhGaV7At HOVmeTxhGwC6h8B3Qk8TDC5PLI G8H9WsNdv6LCUfcErgVM4vsZGb LPlcKz9czLcyzAsqRC9mAQWl bzjiPKNafR0kFNPxvYVyfHaqPD 3xXEEoiwaei100YuOjFEB9FFSs xFAbT4RulZ6sQhSeWFGxYCSj R1MreORpTHmyK396HGkkJeM3OT PppoXcF6BtKXRfpCijFoS6c8T4 Gu3MoSLpY8LxM3j5L3BcHfhp dHI+TB82MCWiWF68kQGcqMHbn2 hmzIz5PeAoLNXxGVK3sOeoCRrc c3OzOTUgA89jnDRka3J1OYFf gIdvpHDlNgQoiWL0gD3lSZxwgg fdm8kgrbyiDjbki9nffo56bG46 J27hBCaeZQBcNLZvJDXxMCWs eRvvre7avF3nZl8+NTKkxMZ1iA P2qK6bBnJfFpA1QFcqY976ThGn yBXzClicf9dqp3zhwPp4TlTw AYKaidUzfEyzEUO3h3AfPb76Z3 9sIHdpZHRoPSIyMCUiIHZhbGln ol4qzZ4bKh5+AB3ab3ljnd26 vV40vUG+MOBwOME5bAvtWWojOP KvqN8yNJdmKmZ3VRByWqOqpX27 yXLhGJfiNv2xvTnlyWreON9r PAXlaiuxc043QvAfd2ejGVVgiS HdFPzlHKP8Z91dl3S9UFUiQSOo ENW3uPM2nB3mkUeffxgfbQKc cVkbcbNnaGjqFUreJOpxO309CU IcaJhzGuHloKHnG9hpvdIVCZ7j OjwvdGQ+ANNnKRM9oVdyNWfe AXMndJ8vCHJhW8l8LkFvLeO8BT kqL2LgwnT9BDYlxBFiNFYclLYD qK5eprfew4npflcfXjRvRYUr NBg2ITn2ZZNyxBuaOpAqMXM7Mr N4MEH3uSQfvI7pkAtblcrxyV3t Oyc+RklOOjwvdGQ+PHRkIHN0 yUhjZVswKYFktM5fHGYxK6p2Qj LiIoX7SEkoF5PuevC1APHgcMGm OIBnrWOXuZ4zxnjzq2nxakfc YmDmQPVoTHm2THe6TKGiaUhsPw WiMBP1ZeZ1FQU3bWHwvK1vpArx oolwpO2wUsr+TVJOOjwvdGQ+ KUYjSOH8wWgpQByjFPMzvU3mRJ MbI2h5AfHtByX8SExaU2ShwfQ7 DPMhoERjCREjqONDmZ1hebpi m6vjmpaeBmCsHLZbMHw8RSh9GO NgvBquFtDgZFB9OjG8FGR5oCRq sV0xgKvkmasjwH0eRtl+UGF5 WCE5YM00QZ84A0BaYmsweWPtzX U+PHRhYmxlIHdpZHRoPScxMDAl FiOckYjpUL2dHz4dFGTgXVMb bGx (more content not included)... Normal [facility] CHLAMYDIA/GONOCOCCUS RAINER ( AB/URINE/PAPon 02-09-2022 Chlamydia trachomatis, RAINER Negative Normal Negative [facility] Comment on above: Performed By: #### R PRQ #### [facility] [address] [place] [address] Dr. Juan Antonio Ibarra Neisseria gonorrhoeae, RAINER Negative Normal Negative [facility] Comment on above: Performed By: #### R PRQ #### [facility] [address] [place] [address] Dr. Juan Antonio Ibarra AFP MATERNAL FOR SPINA BIFID Aon 02-08-2022 AFP MoM 1.41 Normal [facility] Comment on above: Performed By: #### A FPMAT #### [facility] [address] [place] [address] Dr. Juan Antonio Ibarra AFP Value 66.8 ng/mL Normal [facility] Comment on above: Performed By: #### A FPMAT #### [facility] [address] [address] [address] Juan Antonio Ibarra AFP, Serum for Spina Bifida Report Normal [facility] Comment on above: Performed By: #### A FPMAT #### [facility] [address] [address] [address] Juan Antonio Ibarra Comment Comment Normal [facility] Comment on above: Result Comment: Melchor Chaudhary, Ph.D., [facility] Director . References: Available Upon Request. . Multiples Of Median Cutoffs For AFP Elevations Briscoe 2.5 Black 2.8 IDD 2.0 Twins 4.5 Abbreviation Definitions IDD - Insulin Dep Diabetes OSBR - Open Spina Bifida Risk . For further inquiries contact [employer] at [phone]. . This test was developed and its performance characteristics determined by [facility]. It has not been cleared or approved by the Food and Drug Administration. Performed By: #### A FPMAT #### [facility] [address] [address] [address] Juan Antonio Ibarra Gest Age Collection Date 18.3 weeks [facility] Comment on above: Performed By: #### A FPMAT #### [facility] [address] [place] [address] Dr. Juan Antonio Ibarra Gestat, Age Based on LMP Normal [facility] Comment on above: Result Comment: Reca lculations are not recommended when gestational dating by LMP and ultrasound are within 10 days. Performed By: #### A FPMAT #### [facility] [address] [address] [address] Juan Antonio Ibarra Insulin Dep Diabetes No Normal [facility] Comment on above: Performed By: #### A FPMAT #### [facility] [address] [address] [address] Juan Antonio Ibarra Interpretation Comment Normal [facility] Comment on above: Result Comment: [...] to discuss available options. The [employer] [place] [employer] recommends amniocentesis be offered to women age 35 and older. Performed By: #### A FPMAT #### [facility] [address] [place] [address] Dr. Juan Antonio Ibarra [age] Normal [facility] Comment on above: Performed By: #### A FPMAT #### [facility] [address] [place] [address] Dr. Juan Antonio Ibarra Multiple Gestation No Normal [facility] Comment on above: Performed By: #### A FPMAT #### [facility] [address] [place] [address] Dr. Juan Antonio Ibarra OSBR Risk 1 IN 3501 Normal [facility] Comment on above: Performed By: #### A FPMAT #### [facility] [address] [place] [address] Dr. Juan Antonio Ibarra PDF . Normal [facility] Comment on above: Performed By: #### A FPMAT #### [facility] [address] [place] [address] Dr. Juan Antonio Ibarra Race Normal [facility] Comment on above: Performed By: #### A FPMAT #### [facility] [address] [place] [address] Dr. Juan Antonio Ibarra Test Results: Negative Normal [facility] Comment on above: Performed By: #### A FPMAT #### [facility] [address] [place] [address] Dr. Juan Antonio Ibarra VAGINITIS/VAGINOSIS DNA PROB Abdirashid 02-08-2022 Jeremy species Negative Normal Negative [facility] Comment on above: Performed By: #### A 1C #### [facility] [address] [place] [address] Dr. Yilan Ibarra Gardnerella vaginalis Negative Normal Negative [facility] Comment on above: Performed By: #### A 1C #### [facility] [address] [address] [address] Juan Antonio Ibarra Trichomonas vaginalis Negative Normal Negative [facility] Comment on above: Performed By: #### A 1C #### [facility] [id number] Juan Antonio Ibarra ABO and Rh group post transf usion reaction Nom (Bld)Ordered By: Eleazar Hess on 02-06-2022 Microscopic observation Gram stain Nom (Unsp spec) [facility] ED Clinical Summaryon 2021 ED Clinical Summary [facility] Emergency Department [address] [place], [place] [id number] ED Clinical Summary PERSON INFORMATION Name: ZULEIKA WYATT Age: 31 Years Sex: FEMALE : 1990 MRN: Acct#: Visit Reason: Rash; Medical problem - minor; POSS BODY INFECTION Arrival: 01/29/2022 20:27:46 Discharge: 01/29/2022 21:17:00 LOS: 000 00:50 Check In: 01/29/2022 20:27:46 Checkout:01/29/2022 21:17:00 Address: [address] [place] [address] [place] [id number] PCP: Andie Stoddard PROVIDER INFORMATION Provider Role [...] follow-up with their family doctor or their [employer]OMAT[employer] W[employer]ER [employer]CH[employer]IC doctor. To this they agreed.. Health Status [...] Use: Current Fr (more content not included)... [facility] ED Note - Physicianon 2021 [...] follow-up with their family doctor or their [employer] W[employer] doctor. To this they agreed.. Health Status [...] Once. Impression and Plan Diagnosis Sebaceous cyst ([id number] L72.3, Discharge, Medical) Plan Condition: Unchanged. Disposition: Discharged: time 01/29/2022 20:59:00. Prescriptions: Launch prescripti (more content not included)... Normal [facility] ED Patient Summaryon 022 ED Patient Summary [facility] - Emergency Department [address] [place] [id number] PATIENT DISCHARGE INSTRUCTIONS Patient Information Name: ZULEIKA WYATT Age: 31 Years Date of : 1990 Reason For Visit: Rash; Medical problem - minor; POSS BODY INFECTION Arrival Time: 01/29/2022 20:27:46 Primary Care Physician: Andie Stoddard Attending Physician: Johnson Wright DO Comment: Visit Diagnosis: Diagnoses This Visit Medical problem - minor ([id number]) Rash ([id number]) Sebaceous cyst (L72.3) The Pharmacy at [facility] is open Saturday through Saturday from [...] alcohol and/or drug addiction problems; contact the [facility] 07/01 Crisis Hotline -Text 9MCFK dw [phone]. If you received any narcotics, sedation, or [...] legal documents With: Address: When: Andie Wyatt [address] [place] [address] Business (1) Within 3 to 5 days Comments: home warm compresses clindamycin for antibioitic see your ob, or Dr Wyatt, for recheck apt ----at some point, this might have to be removed; this is not cancer, but a retention cyst of fat material; Return if very red and tender, or fever, vomiting worse You are welcomed to return anytime. Call Dr Wright, ext [phone], if any question patric WRIGHT< ER PHYSICIAN< H [facility] Medication Information: The exam and treatment you received today in the [facility] Emergency Department were for an urgent problem and are not intended as complete care. It is important for you to follow up with a doctor, nurse practitioner, or physician?s speech pathologist assistant for ongoing care. If your symptoms [...] so we can reach you if necessary. [facility] Emergency Department has provided you with a complete list of medications post discharge. 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 Normal [facility] TYPE AND SCREENon 12-30-2021 TYPE AND SCREEN Antibody Screen NEGA TIVE Blood Bank Notes performed by CV on 12/26/2021 ABO Rh Typing A Rh Positive Blood Bank Notes performed by CV on 12/26/2021 Normal [facility] Comment on above: Performed By: #### R UBIGG #### [facility] [address] [place] [address] Dr. Juan Antonio Ibarra HEP B SURFACE ANTIGEN SCREEN on 12-28-2021 HBsAg Screen Negative Normal Negative [facility] Comment on above: Performed By: #### H BSANS #### [facility] [address] [place] [address] Dr. Juan Antonio Ibarra HEPATITIS C VIRUS AB W/ REFL EX QUANTon 12-28-2021 HCV AB 0.2 s/co ratio Normal 0.0-0.9 [facility] Comment on above: Performed By: #### A 1C #### [facility] [address] [place] [address] Dr. Juan Antonio Ibarra Interpretation: Comment Normal [facility] Comment on above: Result Comment: Nega tive Not infected with HCV, unless recent infection is suspected or other evidence exists to indicate HCV infection. Performed By: #### A 1C #### [facility] [address] [place] [address] Dr. Juan Antonio Ibarra HIV 1 AND 2 WITH REFLEXon HIV Screen 4th Generation wRfx Non-Reactive Normal Non Reactive [facility] Comment on above: Result Comment: HIV Negative HIV-1/HIV-2 antibodies and HIV-1 p24 antigen were NOT detected. There is no laboratory evidence of HIV infection. Performed By: #### R UBIGG #### [facility] [address] [place] [address] Dr. Juan Antonio Ibarra RPR QUANTon 12-28-2021 Rapid Plasma Reagin, Quant Non-Reactive Normal NonRea<1:1 [facility] Comment on above: Result Comment: Plea se Note: This test does not meet current guidelines for screening and diagnosis of syphilis. This test is intended for following treatment response in patients being treated for syphilis infection. To screen for syphilis infection, a reflex cascade that includes both RPR and a treponema-specific assay should be utilized, such as Treponema pallidum (Syphilis) Screening [place] (875292) or Rapid Plasma Reagin (RPR) Test With Reflex to Quantitative RPR and Confirmatory Treponema pallidum Antibodies (706020). Performed By: #### R PRQ #### [facility] [address] [place] [address] Dr. Juan Antonio Ibarra RUBELLA AB IGGon 12-28-2021 Rubella Antibodies, IgG 3.48 index Normal Immune >0.99 [facility] Comment on above: Result Comment: Non- immune <0.90 Equivocal 0.90 - 0.99 Immune >0.99 Performed By: #### R UBIGG #### [facility] [address] [place] [address] Dr. Juan Antonio Ibarra CBC AUTO DIFFon 12-26-2021 BASO # 0.0 103/ul Normal 0.0-0.1 [facility] Comment on above: Performed By: #### A 1C #### [facility] [address] [place] [address] Dr. Juan Antonio Ibarra Basophils/100 WBC (Bld) 0.3 % Normal 0.2-2.0 [facility] Comment on above: Performed By: #### A 1C #### [facility] [address] [place] [address] Dr. Juan Antonio Ibarra EO # 0.0 103/ul Normal 0.0-0.7 [facility] Comment on above: Performed By: #### A 1C #### [facility] [address] [place] [address] Dr. Juan Antonio Ibarra Eosinophils/100 WBC (Bld) 0.4 % Critically low 0.9-7.0 [facility] Comment on above: Performed By: #### A 1C #### [facility] [address] [place] [address] Dr. Juan Antonio Ibarra Erythrocyte distribution width (RBC) [Ratio] 13.5 % Normal 11.0-15.0 [facility] Comment on above: Performed By: #### A 1C #### [facility] [address] [place] [address] Dr. Juan Antonio Ibarra Hematocrit (Bld) [Volume fraction] 38.9 % Normal 36.0-48.0 [facility] Comment on above: Performed By: #### A 1C #### [facility] [address] [place] [address] Dr. Juan Antonio Ibarra Hemoglobin (Bld) [Mass/Vol] 12.9 g/dL Normal 12.0-16.0 [facility] Comment on above: Performed By: #### A 1C #### [facility] [address] [place] [address] Dr. Juan Antonio Ibarra IG # 0.03 10e3/ul Normal 0.00-0.03 [facility] Comment on above: Performed By: #### A 1C #### [facility] [address] [place] [address] Dr. Juan Antonio Ibarra IG % 0.3 % Normal 0.0-0.5 [facility] Comment on above: Performed By: #### A 1C #### [facility] [address] [place] [address] Dr. Juan Antonio Ibarra LYMPH # 1.4 103/ul Normal 1.2-3.8 [facility] Comment on above: Performed By: #### A 1C #### [facility] [address] [place] [address] Dr. Juan Antonio Ibarra Lymphocytes/100 WBC (Bld) 14.5 % Critically low 20.5-60.0 [facility] Comment on above: Performed By: #### A 1C #### [facility] [address] [place] [address] Dr. Juan Antonio Ibarra MANUAL DIFF REQ NO Normal [facility] Comment on above: Performed By: #### A 1C #### [facility] [address] [place] [address] Dr. Juan Antonio Ibarra MCH (RBC) [Entitic mass] 29.6 pg Normal 26.7-34.0 [facility] Comment on above: Performed By: #### A 1C #### [facility] [address] [place] [address] Dr. Juan Antonio Ibarra MCHC (RBC) [Mass/Vol] 33.2 g/dL Normal 29.9-35.2 [facility] Comment on above: Performed By: #### A 1C #### [facility] [address] [place] [address] Dr. Juan Antonio Ibarra MCV (RBC) [Entitic vol] 89.2 fL Normal 81.0-99.0 [facility] Comment on above: Performed By: #### A 1C #### [facility] [address] [place] [address] Dr. Juan Antonio Ibarra MONO # 0.5 103/ul Normal 0.3-0.8 [facility] Comment on above: Performed By: #### A 1C #### [facility] [address] [place] [address] Dr. Juan Antonio Ibarra Monocytes/100 WBC (Bld) 4.6 % Normal 1.7-12.0 [facility] Comment on above: Performed By: #### A 1C #### [facility] [address] [place] [address] Dr. Juan Antonio Ibarra NEUT # 7.7 103/ul Critically high 1.4-6.5 [facility] Comment on above: Performed By: #### A 1C #### [facility] [address] [place] [address] Dr. Juan Antonio Ibarra Neutrophils/100 WBC (Bld) 79.9 % Critically high 43.0-75.0 [facility] Comment on above: Performed By: #### A 1C #### [facility] [address] [place] [address] Dr. Juan Antonio Ibarra Platelet mean volume (Bld) [Entitic vol] 10.0 fL Normal 9.5-13.5 [facility] Comment on above: Performed By: #### A 1C #### [facility] [address] [place] [address] Dr. Juan Antonio Ibarra PLT 194 103/ul Normal 150-450 [facility] Comment on above: Performed By: #### A 1C #### [facility] [address] [place] [address] Dr. Juan Antonio Ibarra RBC 4.36 106/ul Normal 4.20-5.40 [facility] Comment on above: Performed By: #### A 1C #### [facility] [address] [place] [address] Dr. Juan Antonio Ibarra WBC 9.7 103/ul Normal 4.0-11.0 [facility] Comment on above: Performed By: #### A 1C #### [facility] [address] [place] [address] Dr. Juan Antonio Ibarra CULTURE URINEon 12-26-2021 CULTURE URINE Culture Observations : LIGHT GROWTH OF MIXED GENITAL ALONSO. NO POTENTIAL PATHOGENS SEEN. Normal [facility] Comment on above: Performed By: #### R UBIGG #### [facility] [address] [place] [address] Dr. Juan Antonio Ibarra GLYCOHEMOGLOBIN A1Con 2021 ADA RECOMMENDATION SEE BELOW Normal [facility] Comment on above: Result Comment: ADA RECOMMENDED LIMIT 4.0 - 6.0 ADA THERAPEUTIC TARGET < 7.0 ACTION SUGGESTED > 7.0 Performed By: #### A 1C #### [facility] [address] [place] [address] Dr. Juan Antonio Ibarra Glucose [Mass/Vol] 114 mg/dL Normal [facility] Comment on above: Performed By: #### A 1C #### [facility] [address] [place] [address] Dr. Juan Antonio Ibarra HbA1c (Bld) [Mass fraction] 5.6 % Normal 4.5-6.2 [facility] Comment on above: Performed By: #### A 1C #### [facility] [address] [place] [address] Dr. Juan Antonio Ibarra US PREG TVon [...] by: FELECIA GOLDMAN Date: 2021-12-07 16:59 Normal [facility] Coding Summaryon 11-21-2021 Coding Summary HTMLBase 64 CefasjuhURw2uCd+PGhlYWQ+PE 4AHODpW09tdDLajR4WB6cQHP8H JOTOMAPVFT1FNH5uySS0TEzwV6 VybiAv TkxqvRHxIN35TBo7OZG0xJkxWO eidL8pvYXwX5l6GbTcGB58lO58 OYcsRFDcPkL1VfGsjsrebTDf J4ykOgYpiGJaGfm+PHRhYmxlIH fyCOPwPCitVUHqJgBcqPmdOC2i Xp4lCXXaJIPboMpgpDTqAeEw r4gbVGPoDCwyXC7ohAevP4AcuM I4JMRlr3e7Ph68fIA+PHRkIHN0 bQmqOGckt344ZwTjs7egCCU4 lLFzSQerLBB7Z93yd3J3TIMvDS IkGGZ0eBZ8bI5emDploehyR6Yg iGYlNpM8SCW9kNZspV9vzKpe vooevB1dFln+P42TYV7YNJVKIO 3KJgj3M4SgQweioOB+CP56LITw XF29oIMthMCiw5gwfPb6FcKm LRXfWAC4pRryISrqt2TlJCRnS4 1cjJUkp4K8LWEdfMdjcTOcYmPj rRD7tA2rNZqjiqqxd0htswxc Wxfqp8jfqa09iG89G37sVTeeUG JkVTS1MGBeTXJqnTshkz4luY7a Ii8+EKaun0bqj1ufuVc7RbXz UBRkplNduHiaJWO3m5VsOj24H5 KseLbxz8McYsz3os38iWMfz3D3 eAQ7KPhcCASoeR3mTFroFuE9 NHHdDgUliK28mARxCJuuYm7esW duaQbbEZ5zSEOcqazcVYVwhQ2h PYGrsGDkiZcwTP1lJQClvvep c997InQvOFZ6EBEvaGCuL0QjqQ 1mKnMkSUMnCBXbJ7TfdECbCLzf I251PIweMvJ5DVUpkhSkG8Gd TUEaaUxfQjT9a9I1Dl2Wf2Sgfi tiXUN0MLmqCLS4UoF2JqGaXuC3 K8LhCcb7LNBvrLwwCB0cW8In ACIevkglpundnMJ3PVEnWMVsfU 59dOTxVAmyJi1rd3N8f749MNCv LKRjtJ02Pl3pxEzoFHKxpNNA aI7kwhtbw6opcewwAvVpAQXxPZ x8VIs3FGNkoSxhSpGiXUZ9TsQ0 OLB1dZNqsR4fjXojetxoeT2b Oyc+F25xrQ0pXXF7QFS8gffhYT WxpnShBG30SP37U2BrYxgjhNBb bGU+UGHnoiSlnTkiDI4jHbJl k1ths0JlMGoaL7TwHNOqHSfdBz d8CFBoYYP4qUY3hV2wMNFyVHzq f7J9yBV5Z7PkrgVcpj4mg6tq REYiHGgaY33dwAIlj2D6QINqaE I7QNOsaGfvBsBzuI62Mow+PGNv yPkgz7SrJmrwf9gpf9osrTh0 StAqTPBtdyDsySpdSVZ7d5OdWx 04B91gBBjlNOVjVKDdZVSeDUPq eCgyel6otR3yAr4+PGNvbCB3 zRE1sZ4lVPQoGoG0WOorS771Nv LosOShDgcam5tsl4eqnCq7FyPk UOBfftKwnHubSYB4s0OhZj04 B26lDItmLVNqWUZjFHByPIUocZ dvvp7fmE8lCm4+AG6kv3bfdh74 rH39wFH+WZGuQFS8jHvgVLag WWXttF3gYBryRtZ9OUWeMuSnzP 63wYDuFTmiTe3srFfjpDbrNF4d JFBwbuxez474MeCly1nlNIOr yTXzBKrpLRB1D95li8S6RZCaFI DcKBH7bMM2tC0gmGbigvoxjXGz kGmsguRbkXqcZTowYYkqL853 IHRvcDsnPlBhdGllbnQgTmFtZT d2A4YxChq4WWHkjAfcJU3tqBWl ZGlvUa2clPfhwKfpZF6gXVVo dmudj646SvSgu2szQSUheJJcUV fbZHT6P22tl2L6YZGzYPHfMZY0 rJZ1oR5dkSxspvbrnMGiyKcd vvNpuNcmEPlgHSsbA140WNBodQ kvIiEflgYtTJXotHW2PJ37QV16 hMIfc0O7kUW3D5XoGZKvgfta dywrbZF6HCFoLSVzjK00Cs8kiH nxRv3jSFDdNNL9HFTvfIEkH5Gv iX2kOeMzVNLpVGWrG0EjlGMb LJocY133UAalRgZ3QIKfbeOiU1 VpVDWtfCheNxF2l4X2El8UJ2U6 SV99TO69yAGua9V7hJP0I2Ch XSJrwelyidepdTS2TNBgMUClfY 93Pe9bnUzeJe4oCAZkMKD0EGDt hBAwV9VtdS6pEnIvEBLoDIBr B3TkaBTiPTxuY355CFwjUwF5RS GtsaUkE6FzYTJjaQfpJvA2h3J9 Mc8KGOz3EJ12YQ14cOEjd1Z6 fFA1A1DdRZJfauxlxehvvSB8JF McYHXdlA51Fg4hiFucVs0sKTMe XER1YAKwqVPaS9TriM1qXaEr DLCeVJHzJ5BxuJHfPHnyQ555RA wbSoF4GCMdtdAbF2ZcUIYbyZtn QlS7h9H4Ul1CGQHbXK13OEJ7 aAF1JS43JS82M0YrSdqswHQljL U+PHRhYmxlIHdpZHRoPScxMDAl VkGmmQeiZM2ePg9eXXAlLGHr qWoezHVbEpPvy6fuODFsFXvbWC 5vdYolN4GjzMW4MFYmr8l7Tl81 Q14fY6NccZL+MYFswTF2nWI9 mD8bUtBhDaC0YXwpY063ByTcoS OpHgttk0mnk5oniLz4BlP2UOWy xmHytWhuWHH8d0JsSc73M40w IHdpZHRoPSIxNSUiIHZhbGlnbj 1kuV4cJy3+WAYduBE9qNE6bL1a TlJdCpG3QAsnW925ZdEglNQq Gztei6anp0apmFe1WjUbIYWtoa BvyWbyJVW5w2TkRv70K0RrrEdu f6IrEjx0dp71rAXok8T2uRB0 T1GiAVSbffobfDMwlCztTK7rDX LywcnlSSKtcB5rWADlB8b0NqEa ExV4VJtsJ4PkgjN6KFZqbFMi VRlbXBF3W51zy0P5MDEaNAAiQE O6bFQ9gE5moWgabdykdRQljTaf jqPxqNdmZPlvNGowT242UZXd uBvbMFWryW3uMXCkcLKoyDlaBI 4wNTBpbjsnPlNURUlOLCBWSVJH DL2QISJKWZE4O7WeIxo2WNMf cDzpJA1smLGnKKsjHb2peBiccU zjHX1tUNTpfuhhKTUnzQ5uYRHt aVFxqYxkQH0zCPKkaynly644 MkQeHRL7NDBovUIyB9UoxN9rWn AxROAqDXKgE8AfuXEtIOsoC417 YNswWjI8ZZZohlUsQ4WxGEKz kXmzHwA4y2M2Tf5rTP8hJG5vSO wuUJ44LS01zTLmg8B5yMR7C1Ca REHdaioyovcvxXI3AAKzHUHb hG90rZWzXAndMd0sm2J2w760CR TaOXOecH75Zf1nzKtoSUQmfCOW nZ8otredq0czkbpwPfOwJYJl ZSz0IRf9JXCvdFrsAuIsYTB9Hx D4DIV9uQFvoO1suLpnfghbyY4y Oyc+YcsfANDawhT7H0TnKws8 JALbxSplIY0kcRVfZFgcQc5bgI fkmDkiNU6qVYFrongiWRQkyC6y UAJtrSSmcSldOG0gYRGdlcdp b383RgYnRZH5KYSktNTnU4HaiB 0dYaMqUIOmHFDpU2LuxDDtSRte S949ODxvHjJ8IFPazwOlU1Xo WCAyyCnoNiB4w3W4Uu8JPJ6OKX I5R4BfXzh2VNRaiYusTB7knFCq BAccJc2dqJqrnPxpQG4lHVEp gvwzKIHnuZ7bTUQerVSwzEbiWZ 3kAMPrtllve925JrYmAGQ0GEXz lJLsZ4TjmD7mZcCtLELsGNLk E0PyeSPqCTgqM788BFcyCcX1QC KmhxEsX0SzYNPedIixBnN0x9L7 Tq2JXGxszMI+NA77uo15D8Oe HvpcUkb9SJGdIEV5gGV8wC4wIE RaXLwka6I9xGD8H0JlvtKyuc0a s5llIUJcGUdqT22srQAze4Z6 RDYwmGK5RSByjNwqKnHjhM03Ed c+OZDgkEimv8WlDfesi4dwr1ab iCp0BmXcOHByoxKwfKqcBQH3 w0RpPz27F42eBVjgPCUmCPShII WfTLIroLdidh0byP4nLk9+PGNv rCU3rZO5iF2vTpXvUwW3HZse E090FbHagLSrGhayj4tfh1qtgQ p7IsBjABDzccTtmVrtPRC1e9Qi Vh78Z6ZubJbyl3AaTdn6vb77 eADns2A7lEN7R9RyJXJyarmhnM SriNddMG1eEBVzratpUIDykN3o GECbA6b4TuZjVvV6ENbpT4Uj vwY7HWYgeCPbJWAubUQSxW6yzi yzu1nffwtaTtOkVKFzKHn2XUm8 ZHFrvEgePzAxKWZ7IeW1VPR2 eMFveP8uvZtiehgqzJ5fSeo+UG r6m0dgtFCjVU7niBQ3XS41DE19 jMKsv2S4nAB1X4IgEMAhcoej ucfjiEK5TWRfNKHqrI60Jp7ueF mcYw1oTBWmCJD8LSMsmHXaX5Xe sW2dCeQaQLXdZTCxH5DoaDJc HGrtW126VGurFuB5GMGmpbYjO3 MrJTCoiAwiAaT5q7M0Wy8UYC15 KS52PQ51iVTpl5R9yVH8R1Ym ZFZtwqmcblwyaMI6CNPeCSZtaS 48Qj3mvHwgPf0hDVEaFGM8SCDo tQUgD3PlsV5tRzDsUWYdKHEn B6VkbQTfQKwdF580IPruMvK0EJ RuyrKfQ8StGDJnjJzoEjN0j8B6 Vc0ELf55BR75WE41jMLha7R0 sRD3W4TeQWQfabbdwwqtiCF2MT XlKOUztN97Mx8ggXncJm7cGZNo FOG2LEAsvBByI8RcbI3dBqUf XGJaKULbT7YswTFlIXnxF479SZ ljNuH4KYSulyRgI5UlAMGieIyx RpW0x3E6Od4JWHctygm1F8Rd PjwvdHI+GV78OYOtJT47nXKdlC Mff7isgOr9EgNzEHXcAND9wRdf BGsnl9NiGYZmH50fcKUxo5L1 IGN (more content not included)... [facility] Coding Summary HTMLBase 64 IwtjrwnpPPb6sXu+PGhlYWQ+PE 0FQCAsV73rsECvfW3FZ6pZDH1Y WJZAIIAICX7JIY2ipKE6EGbfO4 VybiAv GvqxlRQcTP42TEd7UAN8mCalSG defU0zsSDnL7h0ZmJlBM60oY71 VYenYOSmOsN8WmBrbdwldNEh Z4nmSxAnuFOgTpu+PHRhYmxlIH jjRVZaJMfsCYIbRgKemYazRL0y Jp6eOVPtMRKwzTwgyBBsKrXb x2uwAQEyKHlwZJ3vjNzmH3WhdL A9XAAyd5q0Ku84zIF+PHRkIHN0 bJiyGRgqs679HeBpa4qnOGO5 yZRbOWzeSZS2A54dh4I5ZTDyWI EqSBQ1kHD4xN0iyHmemzltI4Ac cLTuPrD5EPS7rYRdxX4epPjt gdlkfK2uVhf+W55KEA3VDKZEIO 8GSib2O7RqUmbfmDD+KM21FMKg LA13gKNswEZbe0ldmXy5KuPz RFNeLUL3lTbxLEqoa1PgWAVoN3 9mhKYtc2Y6EUYzlUhnwVOgUrMz nCG8lS1mREsdfeibb1qrmlrz Hjhru4ouxo18qI84W52hYTfoAD DoZLW1WNFnQAPmjFrhdd3quL0n Ii8+FUkdu7oyg5qtmNj2SyZe FRAogdWvcVtkWPE9d8SuBf87B4 ZcaMwag8OpZwd0ki79sXFxd5S9 eBT8ZSnoGOUxjW0sCGftJfR3 DGJwRxEptL38hQFtOTbmXx8byW sgnMluIS2pJMZmiedfOEMctV9n MOSxyHKqyJpaPW7kKATcpnth p061GlXuEEO0EFBgxORuH8MwjU 8lCnWkLNHjTYLbK5FrqUGjBGxk A689JDibCoH6UGFbmwLvS0Rh LZZopGkvWnH3v0H0Oe9Gy8Myss lbIJF9YFljVXB5OcJ2HiJyTrM9 S9MaHmy8WZSiyCfmGD3nV3Dc OJDmnqeljubcgJV0JKDdQUBrhD 36rJNlLDtoEq3md6W9e887FFOy CCCtbZ82Fb6cyXvjOSMunTXY vL1izopau1jbspucOmOgQTJfTU e8FRx7ARAxvWyyUrEeGJJ8ZxB6 PXB3fGJakQ9feVcmaywabJ3w Oyc+M65szS4vGGY4EHM2dtfsYK PcliTiIQ87JL16Z7VhFxapbAWf bGU+QYNmkbDyqWmeVX6hIyIq q0kqo8DrMBcmO5WmWSZzTWobRs i7DRAzKRD9wDK4vP0wKHBiKRzg q1O9dVF3K2ZhrgDqwb9om1aj RNFzHXymW33ljHSmr8F5ODOmjQ G7TEJejZlePcNjeC67Bnv+PGNv hFltq5DnGzjea7rtp0uvrWg2 QbCnXYKgdeEmuWagLBA1j0QfUf 97J60uZJcpIYTbOHOnUWGkLIYi hYrkiw2chE6fMz3+PGNvbCB3 cFW5dS0mKZQtYbD5LOteT304An IccJLeCpixn1pyx7pgrAb5JsCh COUfxzUnjNkyAPW0m9VuDh80 M34hSFgyEQBlSYFqCGZiNCMfcT gqou7ksM0hYe6+NN3cb3mzdl39 hB67pDL+HQHdIDD1hVaiQBux MXQwbK6iWNdpUeJ2WSKuDpGigA 29jMKbTUppAn5edRjkcJfoGG1b RGSxssgpz597VsKfi0arPLEg jNPoSWodDUE2U74hq4Q5FTRxFF ZgKPY8rHE7qG2bbGxuqenbyWIx dWgeigWewEhyBItsXUpjM917 IHRvcDsnPlBhdGllbnQgTmFtZT n8I3FbDvm2GUVnmLxgOM7akBNf VNuiNb6puWlbiHluNG7pWEZk xpzgw626MoQqx5jyLCAebSSyMF hcDUS7O64jb6N0VHXoDIJqJLJ8 bJG0yY3wmZtnznbndCBlnSoo ahEhhMkaOBxrZKwfL557VNNmtV diNpRfogIcDFCdrPN4FD61FM14 fAPry1I1xLA0M1SaMTGrocmp ldyzuJX4TPOwCOYsaS95Jf5paG xoKk6pYYVmDEB7OTSnhOYhQ8Vd eF6sDlTjSIOkXHRaG5GanPAd SHffF185GIsvBiD8ZLLtceKkZ9 ImLIUcvXvhTkE3e9L2La3QD9L8 EJ56ZW04hWLek2M2bTX7W2Xc VUKtjfjeifjyvAI6IEPnNWTfcM 96Qe2xbOgqUl6lKTDsURH7JPPb xYWtE5MgkC9hUqBbEOMjQPFa R1StkWZmTDexX195OJydRwZ7MJ AnirHgL8FzYLJcmHxnRfI1z5B3 Hm8NNXe4YX64ZA06lPTev0S7 kJX3Y8DlDFLrordbfwjtwYX1UG NpHNVgrM14Sa4hxWnlIp0sRHBs HKA9PDNdzVWgX1UusY8wFqBe MRAuJXZwI0HmuRVkPHkcE581TW ygCqC7ESWskyQiS6GuPBJwkMdx EaM6f7K0Mt6NYBPuGT21SUE5 sVG1KO34CH77S1CfPewefCWbzG U+PHRhYmxlIHdpZHRoPScxMDAl TsAwoCivAF3uMv0tCHAvNCAi rPhtbOZnLsZvv3ggKINvSLqtGT 3lmCehH0ZllQY2JIRta8r6Dr73 B80lG0EcnWZ+XOZmpGK2cOQ7 lP7cKmFpMnR4AKpmC840QoRlsV QzSqggu7kyi7bkyQa0AwH1TWKc wpIpjXfxKFA1d1JyPa16K05s IHdpZHRoPSIxNSUiIHZhbGlnbj 5irQ8cYe9+UEBfeUV2oPL4aW8b ArMeKlR5YSnlT434MaKhxFUy Iwtqu6nad4kanGv5YfVeSKYuvo MqmBlmQEE5q5ByOg17B1TyaOsd k3ToMgs8bh12uZOju3G2oFN0 D1OuYBFsdkzhmYRmkYlpIS7lXT OhysegLRPcdN2iWKNiI6x1TzAe McG8MKnaT1RuekN2VJXkoHMh DPgcEKC6V86wn9A9VKCzBLSlZT D6xOC7nN1srSgaregxjOBgxTix vbOegJwlNKwqAStaW840JWSf uGejHFFhnW2iEHGbhJFqdQztYU 4wNTBpbjsnPlNURUlOLCBWSVJH CD8ABMNNCXC2X2WuJyf9QDCp iCthRT5wpOLnYSjbAp2lsIxqjU baEO1dEBOizircOFMgtX5fHIPb oJSxkUvtPG8xELWgqgqrg880 NfKpKFN3ALLmoAYiD3ZqyL0bKo YrMOScNRWzF9AhgMHfPNjnN305 BQzvSvM2ZQIwjfDrU1SsMCOk iCymVfD3b7N7Ar7tEC7pPH6oIO khKQ98ZB39aSRyz2N6vLV9R2Kp RIShudexgbgucMI6ARRuTXBy aJ99pFKmEDftOa8cx0G8a534AY RtCOJsyV89Kv8dfAayCJVyhESU vQ7vnzosu2cnrgpcXcZyWWCv GYq0WTc2ICKoyPjbHyBzCFG8Gt R0EXE6rKXyxK0bsLltpthszY6z Oyc+NpzdQZMpcyF5P4ToVye4 EHQosPgyJI2ftGExKTpeXd4qiW qdkQjyRC2rIFHzlrvdBSUlvZ7k ZLDgcJGdcVglJK0zRYZbwwgl l663BqHvXFQ0HKLsmSSjE7TziC 3hAdTkKVEaLPGuU1ZkkIBgKTip V472PIouCmB3HPMipuByQ8Iv RVPcuXofHvE9e3M8Zo5HOT5HHH M3J1JgFgu6QWAinOfbXM9thIGj XKakYg8mzVqgaCegXB7xNJNz ntctBYGuiJ7qWRXzwPQjiHumBR 7nIADhkbsxw170IpNlWZO8ESLi zXAdB6LavB5mEzVwQUIpKWDk C5DgtFGjLZhyE801BElcKnU9SU SqlwYrB3AjEZDieExoMeW4u6V7 Pt2HvBJoT4IjD1p7N2SkQkre dHI+YW36KOIuZN22lLCgeDXlz9 iuzDw2NzAmDOGaRCE9xKufZRmv d8TxFTZtA89ykQWcp9C9JIQs iMjdhKAqEuQkvUB1lK1xLOfgcn msb7fcxogcYhnke6uqtx10fX04 Z96sRXcqHCTiYOVuTUNnQEQb aDuduz6luD8eBr8+VCIfeLL8rO I6qT2rKdEoNeI2KColW632RtQn kSMoNiuyj0frr0kkvBi3RvBp NPStqnSftYuhTFE4p6LrQg41A6 9sIHdpZHRoPSIyMCUiIHZhbGln nf9qyC1dQj0+CT3be3cqug57 cC48bGN+UJTrOHA2xFlhEQsuKG AjvV6jPSyrEiL1ZHHiClPzuM08 nYKpYJtvOq4ffFmglQyqVG3d KOWjraflw477CsVvm1wwMSDqcL FrEOpaCVV6Y88eu1A3HUZcSRXe DTA8cCK5fC1ymCuobiiztUWq jFsqxlSpuLowWZusDYmjB758SN VedYcvPvFqySOmB6fnlaPMFV8g OjwvdGQ+BGMiOWU6tQzlVCqq TGWpdL8oRWUjU0r6OgDbIzR4XR loY6HaawM2UYUpgBFxAUTstMDA lC5aqjnrx7iawvauFhAmIJGl JSr9LFh8ZOXlbDxiHqKzGBU4Ra Y7NEO7bVPyiB6inFhwjuumaC4d Oyc+RklOOjwvdGQ+PHRkIHN0 qVnpDNfdNSKvsA1uMNZyB5o5Qi CmSwZ5QWqbY7XhdqW0OYHfnRAf KKKmpMMFtK6onzsxp7kbognb SkDmAKMpULa0OIw5BECdqDhsEm CzVIG8JjG1IOB3wKPuhE5xwChz mgvmrE8hEmu+TVJOOjwvdGQ+ KPGaBOD9sBprVIxhQIGnmY9qBN QbC6y7GzRtAnW8JLuqG1WexgC2 MYSbqJLpUWXyeHKGmP0bjojs b9oeovtuCvKaRRPzADi2RLa2NF EomAkhInMuDCA3NvT4WSM0cCGv dT0fnQxcbauagC1wFqg+UGF5 STH8JN09ST09P7YcGgibfFUfeN U+PHRhYmxlIHdpZHRoPScxMDAl FzKkwZpoYG7nYc6sVLJdQJSy bGx (more content not included)... Normal [facility] ED Clinical Summaryon 2021 ED Clinical Summary [facility] - Emergency Department [address] [place] [id number] ED Clinical Summary PERSON INFORMATION Name: ZULEIKA WYATT Age: 31 Years Sex: FEMALE : 1990 MRN: Acct#: Visit Reason: Rib/trunk pain-swelling; ABD PAIN Arrival: 11/13/2021 16:30:24 Discharge: 11/13/2021 18:01:00 LOS: 000 01:31 Check In: 11/13/2021 16:30:24 Checkout:11/13/2021 18:01:00 Address: [address] [place] [address] [address] [facility] [id number] PCP: Andie Stoddard PROVIDER INFORMATION Provider Role Assigned Unassigned [facility] 11/13/2021 16:34:49 Alfreda DURAN, [place] ED Nurse 11/13/2021 16:34:57 VITALS INFORMATION Vital [...] With: Address: When: CUONG ORTIZ [address] [place] [address] Within 1 to 2 days Comments: Diagnosis [...] results be sent to Dr. 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 She will contact his office tomorrow [...] Patient/family/caregiver verbalizes understanding of instructions given Comment: [facility] ED Note-Nursingon 11-13-2021 ED Note-Nursing [...] with steady gait and no assistance. Normal [facility] ED Patient Summaryon 022 ED Patient Summary [facility] - Emergency Department [address] [place] [address] PATIENT DISCHARGE INSTRUCTIONS Patient Information Name: ZULEIKA WYATT Age: 31 Years Date of : 1990 Reason For Visit: Rib/trunk pain-swelling; ABD PAIN Arrival Time: 11/13/2021 16:30:24 Primary Care Physician: Andie Stoddard Attending Physician: Gamaliel Wyman MD Comment: Visit Diagnosis: Diagnoses This Visit Elevated blood pressure reading (R03.0) History of abdominal pain (Z87.898) at early stage (Z34.90) Rib/trunk pain-swelling ([id number]) Prescription Information: If you have been given a prescription for narcotics, seek immediate medical attention if you have any difficulty breathing or any sudden status changes such as confusion and sleepiness. If you or anyone you know is experiencing suicidal thoughts, mental health, alcohol and/or drug addiction problems; contact the [facility] 07/01 Crisis Hotline -Text 4HNHP ts 127800. If you received any narcotics, sedation, or [...] legal documents With: Address: When: CUONG ORTIZ [address] [place], [place] [id number] Within 1 to 2 days Comments: Diagnosis [...] results be sent to Dr. 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 She will contact his office tomorrow [...] and treatment you received today in the [facility] Emergency Department were for an urgent problem and are not intended as complete care. It is important for you to follow up with a doctor, nurse practitioner, or physician?s speech pathologist assistant for ongoing care. If your symptoms [...] so we can reach you if necessary. [facility] Emergency Department has provided you with a complete list of medications post discharge. Please inform your roofing layer/provider of your visit and for further instruction [...] Temporal: 3 (more content not included)... Normal [facility] hCG Quantitativeon 2 hCG Quantitative 92970.0 mIU/mL High 0.0-0.6 [facility] Comment on above: Order Comment: Pleas e call or fax results to Dr. Ortiz's office Result Comment: Resu lt confirmed by dilution Post-Menopausal Reference Range is: 0.1-11.6 mIU/mL Performed By: #### 7 [id number] #### [facility] (DEFAULT) [address] [place] [address] Coding Summary.on 12-19-2018 Coding Summary. CODING DATE: 019 [facility] DSC STATUS: Left Against Medical Advice [...] Saved: 12/19/2018 10:35 am Normal [facility] ED Clinical Summaryon 2018 ED Clinical Summary (Inserted Image. Elena ble to display) [address] [address] ED Clinical Summary Person Information Name: ZULEIKA VILLALTA/[facility] Age: 28 Years : 1990 12:00 AM Sex: Female Language: PCP: Marital Status: Phone: [phone] Visit Id: Visit Reason: Test; MENSTRUAL PROBLEMS [...] 12/15/2018 5:58 PM 12/15/2018 5:58 PM ADDRESS: [address] [place] [address] [id number] [facility] DOC NOTES: MEDICAL INFORMATION: Prescriptions Given: PATIENT EDUCATION INFORMATION: Instructions: Follow up: DIAGNOSIS: Normal [facility] ED Patient Education Noteon 12-15-2018 ED Patient Education Note Normal [facility] ED Patient Summaryon 019 ED Patient Summary (Inserted Image. Elena ble to display) [address] [address] Patient Discharge Instructions Person Information Name: ZULEIKA VILLALTA Age: 28 Years Arrival Date: 12/15/2018 4:37 PM Discharge Diagnosis: Primary Care Physician: Provider Information Primary Provider: Advanced Crumb Packer:None The exam and treatment you received in the Emergency Department were for an urgent problem and are not intended as complete care. It is important that you follow up with a doctor, nurse practitioner, or physician?s speech pathologist assistant for ongoing care. If your symptoms become worse or you do not improve as expected and you are unable to reach your usual health care provider, you should return to the Emergency Department. We are available 24 hours a day. JADENZULEIKA Lema has been given the following list of [...] opioids can be used to help relieve xvwosypl-ig-qkjqjl pain and are often prescribed following a [...] with addiction, tell your health patient care provider and ask for guidance or call SAMHSA?S National Helpline at 4-148-534-XMZA. v Source: [place] Department of Health and Human Services/Center for Disease Control & Prevention [facility] Medications Given: Medication Dose Route No medications found. Medication Information: Comment: Pharmacy Information: Thank you for choosing [facility] Patient Education Materials: JADEN Jacome [place] , have received the following patient education materials/instructions and have verbalized understanding: Patient Education Materials: Follow-up Instructions: Prescriptions: Patient Signature __ Date Clinician/Nurse Signature Date 12/15/18 17:58:10 Normal [facility] Progress Note-Nurseon 2018 Progress Note-Nurse [...] care of her daughter. Normal [facility] U BetaHcg Qualon 12-15-2018 HCG.beta subunit (U) [Moles/Vol] Negative Normal [facility] Comment on above: Performed By: #### 2 [id number], [id number] #### [facility] [address] [place] [address] UA With Cult Reflexon 2018 Bacteria LM Ql (Urine sed) TRACE Normal Trace [facility] Comment on above: Performed By: #### 2 [id number], [id number] #### [facility] [address] [place] [address] Bilirubin Ql (U) Negative Normal Negative [facility] Comment on above: Performed By: #### 2 [id number], [id number] #### [facility] [address] [place] [address] Clarity (U) CLEAR Normal Clear [facility] Comment on above: Performed By: #### 2 [id number], [id number] #### [facility] [address] [place] [address] Color (U) YELLOW Normal Yellow [facility] Comment on above: Performed By: #### 2 [id number], [id number] #### [facility] [address] [place] [address] Epithelial cells.squamous LM.HPF (Urine sed) [#/Area] 0-2 Normal 0-2 [facility] Comment on above: Performed By: #### 2 [id number], [id number] #### [facility] [address] [place] [address] Glucose Test strip (U) [Mass/Vol] Negative Normal Negative [facility] Comment on above: Performed By: #### 2 [id number], [id number] #### [facility] [address] [place] [address] Hemoglobin Ql (U) Negative Normal Negative [facility] Comment on above: Performed By: #### 2 [id number], [id number] #### [facility] [address] [place] [address] Ketones (U) [Mass/Vol] Negative Normal Negative [facility] Comment on above: Performed By: #### 2 [id number], [id number] #### [facility] [address] [place] [address] [place].plasma/[place] .RBC (Bld) [Mass ratio] 0-3 Normal 0-3 [facility] Comment on above: Performed By: #### 2 [id number], [id number] #### [facility] [address] [place] [address] Nitrite Ql (U) Negative Normal Negative [facility] Comment on above: Performed By: #### 2 [id number], [id number] #### [facility] [address] [place] [address] pH (U) 6.5 [pH] 5.0-9.0 [facility] Comment on above: Performed By: #### 2 [id number], [id number] #### [facility] [address] [place] [address] Protein (U) [Mass/Vol] Negative Normal Negative [facility] Comment on above: Performed By: #### 2 [id number], [id number] #### [facility] [address] [place] [address] Specific gravity (U) [Rel density] 1.010 1.005-1.03 0 [facility] Comment on above: Performed By: #### 2 [id number], [id number] #### [facility] [address] [place] [address] UA Spec Desc Clean Catch Normal [facility] Comment on above: Performed By: #### 2 [id number], [id number] #### [facility] [address] [place] [address] Urobilinogen Qn (U) 0.2 {Pamela'U}/dL Normal 0.0-1.0 [facility] Comment on above: Performed By: #### 2 [id number], [id number] #### [facility] [address] [place] [address] WBC Auto Ql (U) Negative Normal Negative [facility] Comment on above: Performed By: #### 2 [id number], [id number] #### [facility] [address] [place] [address] WBC LM.HPF (Urine sed) [#/Area] 0-5 Normal 0-5 [facility] Comment on above: Performed By: #### 2 [id number], [id number] #### [facility] [address] [place] [address] Auto Diffon 12-12-2017 Basophils Auto #/vol (Bld) 0.1 E3/mcL Normal 0.0-0.2 [facility] Comment on above: Order Comment: Order Added by Discern Expert. Performed By: #### 2 [id number] ####KADEN [address] [place] [address] Basophils/100 WBC Auto (Bld) 0.9 % Normal 0.0-2.0 [facility] Comment on above: Order Comment: Order Added by Discern Expert. Performed By: #### 2 [id number] ####KADEN [address] [place] [address] Eos Absolute 0.0 E3/mcL Normal 0.0-0.7 [facility] Comment on above: Order Comment: Order Added by Discern Expert. Performed By: #### 2 [id number] ####KADEN [address] [place] [address] Eosinophils/100 leukocytes 0.4 % Normal 0.0-11.0 [facility] Comment on above: Order Comment: Order Added by Discern Expert. Performed By: #### 2 [id number] ####KADEN [address] [place] [address] Lymphocytes 1.4 E3/mcL Normal 1.2-3.4 [facility] Comment on above: Order Comment: Order Added by Discern Expert. Performed By: #### 2 [id number] ####KADEN [address] [place] [address] Lymphocytes/100 leukocytes 16.6 % Low 20.0-55.0 [facility] Comment on above: Order Comment: Order Added by Discern Expert. Performed By: #### 2 [id number] ####KADEN [address] [place] [address] [place] Absolute 0.5 E3/mcL Normal 0.0-0.7 [facility] Comment on above: Order Comment: Order Added by Discern Expert. Performed By: #### 2 [id number] ####KADEN [address] [place] [address] Monocytes/100 leukocytes 5.5 % Normal 0.0-10.0 [facility] Comment on above: Order Comment: Order Added by Discern Expert. Performed By: #### 2 [id number] ####KADEN [address] [place] [address] Neutro Absolute 6.7 E3/mcL High 1.4-6.5 [facility] Comment on above: Order Comment: Order Added by Discern Expert. Performed By: #### 2 [id number] ####KADEN [address] [place] [address] Neutro Auto 76.6 % High 37.0-75.0 [facility] Comment on above: Order Comment: Order Added by Discern Expert. Performed By: #### 2 [id number] ####KADEN [address] [place] [address] CBC w/ Auto Diffon 8 Erythrocyte distribution width Auto Ratio (RBC) 15.0 % High 11.5-14.5 [facility] Comment on above: Performed By: #### 2 [id number] ####KADEN [address] [place] [address] Erythrocytes (RBC) 4.94 E6/mcL Normal 3.90-5.40 [facility] Comment on above: Performed By: #### 2 [id number] ####KADEN [address] [place] [id number] Hematocrit (HCT) 40.0 % Normal 36.0-48.0 [facility] Comment on above: Performed By: #### 2 [id number] ####KADEN [address] [place] [address] Hemoglobin mass conc (Bld) 13.0 g/dL Normal 12.0-16.0 [facility] Comment on above: Performed By: #### 2 633189 ####KADEN [address] [place] [address] MCH 26.2 pg Low 27.0-31.0 [facility] Comment on above: Performed By: #### 2 454807 ####KADEN BairdPidFofy5886 [place] [address] MCHC mass conc (RBC) 32.4 g/dL Low 33.0-37.0 [facility] Comment on above: Performed By: #### 2 333755 ####KADEN [address] [place] [address] MCV 81.0 fL Normal 78.0-100.0 [facility] Comment on above: Performed By: #### 2 677036 ####KADEN BairdSmlEjia6103 [place] [address] Platelet mean volume (PMV) 7.5 fL Normal 7.4-11.0 [facility] Comment on above: Performed By: #### 2 815094 ####KADEN [address] [place] [address] Platelets 347 E3/mcL Normal 130-400 [facility] Comment on above: Performed By: #### 2 851741 ####KADEN [address] [place] [address] WBC (Leukocytes) 8.7 E3/mcL Normal 3.6-11.0 [facility] Comment on above: Performed By: #### 2 197845 ####KADEN [address] [place] [address] CMPon 12-12-2017 Alanine aminotransferase (ALT) 14 Int._Unit/L Normal 10-40 [facility] Comment on above: Performed By: #### 2 556061 ####KADEN ZchDdox9231 [place] [address] Albumin 3.8 g/dL Normal 3.2-5.0 [facility] Comment on above: Performed By: #### 2 941952 ####KADEN [address] [place] [address] Albumin/Globulin Ratio 1.0 {ratio} Low 1.1-1.9 [facility] Comment on above: Performed By: #### 2 368326 ####KADEN FzdBceo9209 [place] [address] Alk Phos 75 Int._Unit/L Normal 42-121 [facility] Comment on above: Performed By: #### 2 798331 ####KADEN BairdOafSgoi5573 [place] [address] Aspartate aminotransferase (AST) 18 Int._Unit/L Normal 10-42 [facility] Comment on above: Performed By: #### 2 874418 ####KADEN OpiSvkh6927 [place] [address] Bili Total 1.0 mg/dL Normal 0.2-1.0 [facility] Comment on above: Performed By: #### 2 429658 ####KADEN [address] [place] [address] BUN/Creatinine Ratio 12.5 ratio Normal 5.4-30.0 [facility] Comment on above: Performed By: #### 2 866813 ####KADEN [address] [place] [address] Creatinine 0.8 mg/dL Normal 0.6-1.3 [facility] Comment on above: Performed By: #### 2 131207 ####KADEN [address] [place] [address] Globulin 3.8 g/dL Normal 2.0-4.0 [facility] Comment on above: Performed By: #### 2 804781 ####KADEN [address] [place] [address] Protein 7.6 g/dL Normal 6.4-8.3 [facility] Comment on above: Performed By: #### 2 275874 ####KADEN [address] [place] [address] Urea nitrogen 10 mg/dL Normal 7-18 [facility] Comment on above: Performed By: #### 2 540856 ####KADEN [address] [place] [address] Calcium 9.3 mg/dL Normal 8.4-10.2 [facility] Comment on above: Performed By: #### 2 844701 ####KADEN [address] [place] [address] Chloride 105 mmol/L Normal 98-107 [facility] Comment on above: Performed By: #### 2 424209 ####KADEN [address] [place] [address] CO2 25.1 mmol/L Normal 24.0-30.0 [facility] Comment on above: Performed By: #### 2 033298 ####KADEN [address] [place] [address] Glucose mass conc 101 mg/dL High 70-99 [facility] Comment on above: Performed By: #### 2 023397 ####KADEN [address] [place] [address] Potassium molar conc 3.4 mmol/L Low 3.5-5.1 [facility] Comment on above: Performed By: #### 2 865055 ####KADEN [address] [place] [address] Sodium 140 mmol/L Normal 136-145 [facility] Comment on above: Performed By: #### 2 913367 ####KADEN [address] [place] [address] Lipase Levelon 12-12-2017 Lipase Lvl 30 U/L Normal 8-57 [facility] Comment on above: Performed By: #### 2 661422 ####KADEN NowHztu[address]105 [place] [address] UA Completeon 12-12-2017 UA Blood 3+ Normal Negative [facility] Comment on above: Performed By: #### 2 374526 ####KADEN LgpCyjj9998 [place] [address] UA Bacteria Trace Abnormal None [facility] Comment on above: Performed By: #### 2 434420 ####KADEN QsuAxdw9582 [place] [address] UA Clarity SltCloudy Abnormal Clear [facility] Comment on above: Performed By: #### 2 200823 ####KADEN EawGmmn6415 [place] [address] UA Hyal Cast 0-2 Normal 0-2 [facility] Comment on above: Performed By: #### 2 190437 ####KADEN PuqRyzs2252 [place] [address] UA Leuk Est 3+ Abnormal Negative [facility] Comment on above: Performed By: #### 2 842722 ####KADEN OsrSjph5163 [place] [address] UA Mucous Many Abnormal Trace [facility] Comment on above: Performed By: #### 2 670496 ####KADEN EgaNjes6605 [place] [address] UA Nitrite Negative Normal Negative [facility] Comment on above: Performed By: #### 2 925385 ####KAEDNMorelia BairdFxwRerm[address] [place] [address] UA pH 5.0 Normal 4.6-8.0 [facility] Comment on above: Performed By: #### 2 506743 ####KADEN [address] [place] [address] UA Protein 1+ Abnormal Negative [facility] Comment on above: Performed By: #### 2 905652 ####KADEN [address] [place] [address] UA Spec Grav 1.026 Normal 1.003-1.03 0 [facility] Comment on above: Performed By: #### 2 699947 ####KADEN [address] [place] [address] UA Squam Epithelial 0-5 Normal 0-5 [facility] Comment on above: Performed By: #### 2 418516 ####KADEN [address] [place] [address] UA Urobilinogen 2.0 mg/dL Abnormal [facility] Comment on above: Performed By: #### 2 058647 ####KADEN [address] [place] [address] UA WBC >50 Abnormal 0-5 [facility] Comment on above: Performed By: #### 2 571282 ####KADEN [address] [place] [address] Urine, color Yellow Normal Yellow [facility] Comment on above: Performed By: #### 2 672904 ####KADEN [address] [place] [address] Urine, erythrocytes 20-50 Abnormal 0-3 [facility] Comment on above: Performed By: #### 2 759879 ####KADEN [address] [place] [address] Urine, glucose Negative Normal Negative [facility] Comment on above: Performed By: #### 2 012720 ####KADEN [address] [place] [address] Urine, ketones presence Trace Normal [facility] Comment on above: Performed By: #### 2 530535 ####KADEN NwwCzgj7077 [place] [address] Urine, urobilinogen Negative Normal Negative [facility] Comment on above: Performed By: #### 2 673103 ####KADEN GhlFopw8317 [place] [address] eGFRon 12-12-2017 eGFR AA >60 Normal [facility] Comment on above: Order Comment: Order Added by Discern Expert. Performed By: #### 2 974558 ####KADEN BairdYnoGtpp5734 [place] [address] eGFR (non-black) mL/min/{1.73_m2} Normal [facility] Comment on above: Order Comment: Order Added by Discern Expert. Performed By: #### 2 334771 ####KADEN BairdQffKymb[address]392 [place] [address] HISTORY PHYSICALon 8 HISTORY PHYSICAL HNO ID: [id number] thor: Clara Baker WolfeService: Maternal MedicineAuthor Type: [...] [facility] PROGRESSon 12-02-2017 PROGRESS HNO ID: [id number] thor: Marie Lema (Res) LendeService: ObstetricsAuthor Type: [...] with more than 50% of the total zlog-jz-jdjslrzm of the visit in counseling / coordination [...] decreasing.Ambulating without difficulty.OBJECTIVE:PHYSI GEN EXAM:Heart: RR, S1, G1Waywt: clear to auscultationAbdomen: Soft Bowel sounds present [...] SOCIAL WORKon 12-02-2017 SOCIAL WORK HNO ID: [id number] thor: Meredith (Sw) Sarris-OrlandoService: Social WorkAuthor Type: Social WorkerType: Social WorkFiled: 12/02/2017 12:25 PMNote Text:SOCIAL WORK CONSULT NOTESERVICE DATE: 12/02/2017SERVICE TIME: 1015Referred by: Jose for visit:Maternal/Infant - adjustment to conditionLiving Arrangement: HomeLives With: PartnerFinancial Resources: DisabledPrimary Contact:Extended Emergency Contact Information DARRELL BRANCH, [facility] Emergency Contact: No,ContactRelation: OtherSupportive: YesOther Important Patient [...] from hospital. (FOBparents are Anamika Munoz of [address] [place] [address], [facility]).Per pt and FOB, all needed baby supplies and equipment are at the [facility] and a nursery has been set up.Per pt, name of baby girl is Martha Branch.Pt states she is on SSI and WIC.Pt shares that she is in ongoing counseling at [facility] in [place] and has appointments 2 x per month.Discussed with pt and FOB signs and sx of depression; safe babysleep and discussed ways to deal with crying . Pt again states sheis going to rely on her support system.No additional issues identified at this time. Encouraged pt and FOB toutilize services through [facility]. Providedcontact information.Outcome/Recomm endations:[facility] spent (minutes): 60SIGNATURE: CARLA Goncalves PATIENT NAME: Zuleika Hernandez: December 02, 2017 : 11:10 AM PAGER/CONTACT#: [facility] ANES INTRAOPon 12-01-2017 ANES INTRAOP HNO ID: [id number] thor: Terrance Leblanc) Richyervice: AnesthesiologyAuthor Type: Nurse AnesthetistType: Anesthesia IntraOpFiled: 12/01/2017 9:41 AMNote Text:ANALGESIA PROGRESS RECORDCATHETER REMOVAL/END OF CASESERVICE DATE: 12/01/2017REMOVAL DATE AND TIME: 11/30/2017, 1953DELIVERY DATE AND TIME: 11/30/2017 at 5:49 PMCATHETER REMOVAL:Catheter Removal: See [facility] Nursing noteSIGNATURE: Terrance Contreras APRN.CRNA PATIENT NAME: Zuleika Hernandez: December 01, 2017 : 9:40 AM PAGER/CONTACT #: [facility] ANES Keke 12-01-2017 ANES POST HNO ID: [id number] thor: Terrance Lockhartervice: AnesthesiologyAuthor Type: Nurse AnesthetistType: Anesthesia PostOpFiled: 12/01/2017 9:43 AMNote Text:POST ANESTHESIA EVALUATION NOTESERVICE DATE: 12/01/2017SERVICE TIME: 9:42 AMDOB: 1990Vitals: 12/01/1799Temp: 36.7 ?C (98.1 ?F) 36.8 ?C (98.2 ?F) 36.4 ?C (97.5 ?F) 36.4 ?C (97.5?F) 12/01/1799P: 119/55 102/61 107/57 116/72 12/01/1799ulse: 90 79 65 78 12/01/1799Resp: 20 16 20 16 /16/870155 002 [id number]: 100% 98% 98% 98%Validated Vital Signs: YesPOST ANES STATUS: No apparent anesthetic complications. The patient isappropriately hydrated with stable respiratory and cardiovascular status.Patient has safe and adequate airway control. The patient has appropriatepain relief and no significant post operative nausea or vomiting. Thepatient has achieved baseline mental status.Further assessment by Anesthesia Service: NoneOther Remarks:SIGNATURE: Terrance Contreras APRN.DRUM SANDER PATIENT NAME: Zuleika BecerrilnDATE: December 01, 2017 : 9:42 AM PAGER/CONTACT #: [place]bo [facility] PROGRESSon 12-01-2017 PROGRESS HNO ID: [id number] thor: Marie Lema (Res) LendeService: ObstetricsAuthor Type: [...] decreasing.Ambulating without difficulty.OBJECTIVE:PHYSI GEN EXAM:Heart: RR, S1, K0Neiby: clear to auscultationAbdomen: Soft Bowel sounds present [...] 2017 ABO group Nom (Bld) A Normal [facility] Comment on above: Performed By: #### A JESSIE #### [place] [address] RH Type Positive Normal [facility] Comment on above: Performed By: #### A JESSIE #### [place] [address] ANES PREOPon 11-30-2017 ANES PREOP HNO ID: [id number] thor: Aaron (Chiara) PoloSerkaleye: AnesthesiologyAuthor Type: Nurse AnesthetistType: Anesthesia PreOpFiled: 11/30/2017 [...] of Sleep Apnea: DeniesHematocritDate Value Ref Range Dwiezh5111/30/2017 32.3 (L) 34.1 - 44.9 % Final Platelet CountDate Value Ref Range Muhgog4211/30/2017 193 182 - 369 thou/cmm Final Vitals: [...] as needed. Disp: Rfl:Inpatient medications reviewed in [facility].I have interviewed and examined the patient. I have reviewed the medicalrecord , pertinent consults and/or the pre-anesthesia evaluation,pertinent labs, and test results.Significant changes in the patient's condition since the History andPhysical, not otherwise documented in primary service progress notes: NoThis contains updated information obtained within 48 hours ofSurgery/Procedure.SIGNAT URE: Hema Cuellar APRN.DRUM SANDER PATIENT NAME: Zuleika LambATE: November 30, 2017 : 12:13 PM : 1990 Normal [facility] Auto Diffon 11-30-2017 Basophils Auto #/vol (Bld) 0.1 E3/mcL Normal 0.0-0.2 [facility] Comment on above: Order Comment: Order Added by Discern Expert. Performed By: #### 2 539547 ####KADEN BairdWceCkcm2101 [place] [address] Basophils/100 WBC Auto (Bld) 0.9 % Normal 0.0-2.0 [facility] Comment on above: Order Comment: Order Added by Discern Expert. Performed By: #### 2 579301 ####KADEN BiardCvjHbeq6892 [place] [address] Eos Absolute 0.1 E3/mcL Normal 0.0-0.7 [facility] Comment on above: Order Comment: Order Added by Discern Expert. Performed By: #### 2 251963 ####KADEN BairdJjvEusz1212 [place] [address] Eosinophils/100 leukocytes 1.0 % Normal 0.0-11.0 [facility] Comment on above: Order Comment: Order Added by Discern Expert. Performed By: #### 2 139022 ####KADEN BairdPwbCufi3684 [place] [address] Lymphocytes 2.0 E3/mcL Normal 1.2-3.4 [facility] Comment on above: Order Comment: Order Added by Discern Expert. Performed By: #### 2 361516 ####KADEN [address] [place] [address] Lymphocytes/100 leukocytes 22.1 % Normal 20.0-55.0 [facility] Comment on above: Order Comment: Order Added by Discern Expert. Performed By: #### 2 953166 ####KADEN BairdHevEnks2040 [place] [address] [place] Absolute 0.7 E3/mcL Normal 0.0-0.7 [facility] Comment on above: Order Comment: Order Added by Discern Expert. Performed By: #### 2 752735 ####KADEN [address] [place] [address] Monocytes/100 leukocytes 7.5 % Normal 0.0-10.0 [facility] Comment on above: Order Comment: Order Added by Discern Expert. Performed By: #### 2 229967 ####KADEN [address] [place] [address] Neutro Absolute 6.1 E3/mcL Normal 1.4-6.5 [facility] Comment on above: Order Comment: Order Added by Discern Expert. Performed By: #### 2 071661 ####KADEN [address] [place] [address] Neutro Auto 68.5 % Normal 37.0-75.0 [facility] Comment on above: Order Comment: Order Added by Discern Expert. Performed By: #### 2 033341 ####KADEN BairdCpfSgnu2029 [place] [address] CBC w/ Auto Diffon 8 Erythrocyte distribution width Auto Ratio (RBC) 14.3 % Normal 11.5-14.5 [facility] Comment on above: Performed By: #### 2 956403 ####KADEN [address] [place] [address] Erythrocytes (RBC) 4.34 E6/mcL Normal 3.90-5.40 [facility] Comment on above: Performed By: #### 2 507395 ####KADEN BairdFroAruk1023 [place] [address] Hematocrit (HCT) 35.1 % Low 36.0-48.0 [facility] Comment on above: Performed By: #### 2 273198 ####KADEN GffTlin0520 [place] [address] Hemoglobin mass conc (Bld) 11.6 g/dL Low 12.0-16.0 [facility] Comment on above: Performed By: #### 2 479010 ####KADEN LvoZlau0803 [place] [address] MCH 26.6 pg Low 27.0-31.0 [facility] Comment on above: Performed By: #### 2 812288 ####KADEN [address] [place] [address] MCHC mass conc (RBC) 32.9 g/dL Low 33.0-37.0 [facility] Comment on above: Performed By: #### 2 069901 ####KADEN BairdObhBuna8222 [place] [address] MCV 80.9 fL Normal 78.0-100.0 [facility] Comment on above: Performed By: #### 2 351899 ####KADEN BairdIpjZbvb8184 [place] [address] Platelet mean volume (PMV) 7.6 fL Normal 7.4-11.0 [facility] Comment on above: Performed By: #### 2 830021 ####KADEN BairdSyzJmbv1807 [place] [address] Platelets 217 E3/mcL Normal 130-400 [facility] Comment on above: Performed By: #### 2 705510 ####KADEN BairdHpyIceh1168 [place] [address] WBC (Leukocytes) 8.8 E3/mcL Normal 3.6-11.0 [facility] Comment on above: Performed By: #### 2 596989 ####KADEN BairdObjKtcr[address]607 [place] 2[address] CONSULTon 11-30-2017 CONSULT HNO ID: [id number] thor: Marie Lema (Res) LendeService: ObstetricsAuthor Type: [...] T0 L0 SAB1 TAB0 Ectopic0 Multiple0 Live Pqxtvz9Jiyz of Baby 1: Not recorded Date: 2014 [...] pupils equal, no thyromegalyLungs: clearHeart: RR, S1, J5Dqfwfvd: soft, nontender, no massesUterus: soft, NTExtremities: 1+ [...] Epi prn4. FB soon5. [place] [address]. anomalies- prominent cisterna magna, bilateral periventrcularnodular heterotopia, [...] EF 55%.10. H/o maternal clubfoot-s/p repair as pkjrve89. H/o tobacco abuseSigned out to [facility] for deliveryDr. Amado reviewed with Dr. MaldonadoSIJAIMEATURE: Marie Hassan DO PATIENT NAME: Zuleika LambATE: November 30, 2017 : 6:49 AM PAGER/CONTACT #: [phone] Normal [facility] HISTORY PHYSICALon HISTORY PHYSICAL HNO ID: [id number] thor: Marie Lema (Res) JabiereService: ObstetricsAuthor Type: [...] T0 L0 SAB1 TAB0 Ectopic0 Multiple0 Live Nlzlwn7Thtj of Baby 1: Not recorded Date: 2014 [...] pupils equal, no thyromegalyLungs: clearHeart: RR, S1, O4Qaxpgly: soft, nontender, no massesUterus: soft, NTExtremities: 1+ [...] Epi prn4. FB soon5. [place] [address]. anomalies- prominent cisterna magna, bilateral periventrcularnodular heterotopia, [...] EF 55%.10. H/o maternal clubfoot-s/p repair as wnmria60. H/o tobacco abuseSigned out to [facility] for deliveryD/w Dr. AmadoSIGNATURE: Marie Hassan DO PATIENT NAME: Zuleika LambATE: November 30, 2017 : 6:49 AM PAGER/CONTACT #: [phone] Normal [facility] Hemogramon 11-30-2017 Erythrocyte distribution width Ratio (RBC) 13.6 % Normal 11.7-14.4 [facility] Comment on above: Performed By: #### C BC1 #### [place] [address] Hematocrit Volume Fraction (Bld) 32.3 % Low 34.1-44.9 [facility] Comment on above: Performed By: #### C BC1 #### [place] [address] Hemoglobin mass conc (Bld) 10.4 g/dL Low 11.2-15.7 [facility] Comment on above: Performed By: #### C BC1 #### [place] [address] MCH Entitic mass (RBC) 26.4 pg Normal 25.6-32.2 [facility] Comment on above: Performed By: #### C BC1 #### [place] [address] MCHC mass conc (RBC) 32.2 % Normal 31.6-34.8 [facility] Comment on above: Performed By: #### C BC1 #### [place] [address] MCV Entitic volume (RBC) 82.0 fL Normal 79.4-94.8 [facility] Comment on above: Performed By: #### C BC1 #### [place] [address] Platelet mean volume Entitic volume (Bld) 9.9 fL Normal 9.4-12.3 [facility] Comment on above: Performed By: #### C BC1 #### [facility] [address] [place], [place] [address] Platelets #/vol (Bld) 193 thou/cmm Normal 182-369 A [facility] Comment on above: Performed By: #### C BC1 #### [facility] [address] [place] [address] RBC #/vol (Bld) 3.94 mil/cmm Normal 3.93-5.22 [facility] Comment on above: Performed By: #### C BC1 #### [facility] [address] [place] [address] RDW SD 40.6 fl Normal 36.4-46.3 [facility] Comment on above: Performed By: #### C BC1 #### [facility] [address] [place] [address] WBC #/vol (Bld) 9.85 thou/cmm Normal 3.98-10.04 [facility] Comment on above: Performed By: #### C BC1 #### [facility] [address] [place] [address] LD NOTEon 11-30-2017 LD NOTE HNO ID: [id number] thor: Marie Lema (Res) LendeService: ObstetricsAuthor Type: ResidentType: LANDD Delivery NoteFiled: 11/30/2017 6:19 PMNote Text: -------Attestation signed by Serenity Maldonado MD at 12/01/2017 6:04 PMI saw and evaluated the patient. I reviewed the resident's note and agree,except that patient seen by [facility] (patient has FAS, fetus with multipleanomlaies) service, consult placed to [facility] for management of labor AND delivery.Essential primip [...] SUMMARY - VAGINAL DELIVERYGestational Age at Delivery: 00b7tOxvtcuk Date: 11/30/2017Service Time: 1799Keegan, Zuleika Dillard [[id number]]Labor EventsRupture Date: 11/30/17Rupture Time: 224Rupture Type: PROMFluid [...] valvular insufficiency with EF this of 55%. Nicanor has a history of former tobacco abuse.SIGNATURE: Marie Hassan DO PATIENT NAME: Zuleika LambATE: November 30, 2017 : 6:15 PM Normal [facility] NURSING PROGon 11-30-2017 NURSING PROG HNO ID: [id number] thor: Marguerite MagañaRn) ANEUDY Albarranervice: (none)Author Type: Registered NurseType: Nursing Progress NoteFiled: 11/30/2017 7:06 PMNote Text: INTRODUCED SELF TO PATIENT AND SUPPORT PERSONS. PLAN OF CARE DISCUSSED.ASSESSMENT PERFORMED. PATIENT DENIES COMPLAINTS. Normal [facility] NURSING PROG HNO ID: [id number] thor: Darcie MagañaRn) ANEUDY Landeroservice: NursingAuthor Type: Registered NurseType: Nursing Progress NoteFiled: 11/30/2017 10:03 AMNote Text:Patient up to shower for comfort. Boyfriend at side. On telemetrymonitors. RN remains in room. FHR difficult to maintain continuoustracing Normal [facility] NURSING PROG HNO ID: [id number] Author: Norah (Rn) KARRI Eastman Service: Nursing Author Type: Registered Nurse Type: Nursing Progress Note Filed: 11/30/2017 7:18 AM Note Text: Report given to Darcie DURAN and care transferred at this time. Normal [facility] PROCEDUREon 11-30-2017 PROCEDURE HNO ID: [id number] thor: Aaron (Chiara) PoloSerkaleye: AnesthesiologyAuthor Type: Nurse AnesthetistType: ProceduresFiled: 11/30/2017 12:30 [...] Catheter in Epidural Space: 5 cmInterspace: approximately L2-G0Mocpdg of Attempts: 1Wet Tap Complication: NoDural Puncture [...] nurses' documentation for additional vitals.SIGNATURE: Hema Cuellar APRN.DRUM SANDER PATIENT NAME: Zuleika BecerrilnDATE: November 30, 2017 : 12:27 PM PAGER/CONTACT #: [facility] PROGRESSon 11-30-2017 PROGRESS HNO ID: [id number] thor: Marie Lema (Joaquín) JabiereService: ObstetricsAuthor Type: ResidentType: Progress NotesFiled: 11/30/2017 5:04 PMNote Text:UpdatePatient is pushing in the OR. Cat I FHRT with baseline around 160s. updated and in house.Franki Neri 2017 5:[address] [facility] PROGRESS HNO ID: [id number] Author: Darcie MagañaRn) KARRI Landeros Service: Nursing Author Type: Registered Nurse Type: Progress Notes Filed: 11/30/2017 3:29 PM Note Text: Patient feeling pressure, cervical exam 9.5 cm. NICU notified. Patient feels warm, but temp 36.9. Normal [facility] PROGRESS HNO ID: [id number] thor: Marie Lema (Res) LendeService: ObstetricsAuthor Type: [...] pt comfortable4. s/p FB5. s/[place] [address]. anomalies- prominent cisterna magna, bilateral periventrcularnodular heterotopia, [...] EF 55%.10. H/o maternal clubfoot-s/p repair as pawkge74. H/o tobacco abuse12. Cat II- Isolate late decelerations. Moderate variability. Continuingto make cervical change. Not on Cat II protocol.SIGNATURE: Marie Hassan DO PATIENT NAME: Zuleika LambATE: November 30, 2017 : 1:35 PM PAGER/CONTACT #: [phone] Normal [facility] PROGRESS HNO ID: [id number] thor: Yolanda (Res) SnyderService: ObstetricsAuthor Type: ResidentType: [...] Membrane Status: Premature (11/30/17 0853 : Darcie Landeros RN)Rupture Date: 11/30/17 (11/30/17 0853 : Darcie Landeros RN)Rupture Time: 0225 (11/30/17 0853 : Darcie Lanedros RN)Amniotic Fluid Color: Clear (11/30/17 0853 : Darcie Washington) Tigre RN)Additional Findings: NoneFETAL MONITORINGFHT: 145/mod/rare accel/+early decelToco: 1-3 minutesCategory: ILABSDiagnostic tests reviewed for today's visit: No new labsAssessment/Plan27 year old EGA:39w0d. Admitted for AOL PROM1. GBS-2. Pit per protocol3. Epi in- pt comfortable4. s/p FB5. [place] [address]. anomalies- prominent cisterna magna, bilateral periventrcularnodular heterotopia, [...] [facility] PROGRESS HNO ID: [id number] thor: Yolanda OchoaerService: ObstetricsAuthor Type: ResidentType: Progress [...] (Res) Sonya)Station: -2 (11/30/17 0648 : Marie Tunde (ResNavya Hassan)Presentation: (not recorded)MEMBRANES:Status: Membrane Status: Premature (11/30/17 [...] Pit per protocol3. [place] [address]. [place] [address]. anomalies- prominent cisterna magna, bilateral periventrcularnodular heterotopia, [...] EF 55%.10. H/o maternal clubfoot-s/p repair as ylnzsz06. H/o tobacco abuseSIGNATURE: Yolanda Barbosa DO PATIENT NAME: Zuleika LambATE: November 30, 2017 : 11:05 AM PAGER/CONTACT #: [phone] [facility] PROGRESS HNO ID: [id number] Author: Darcie Washington) KARRI Landeros Service: Nursing Author Type: Registered Nurse Type: Progress Notes Filed: 11/30/2017 10:35 AM Note Text: Unable to find labwork for chart. Normal [facility] PROGRESS HNO ID: [id number] thor: Marie Lema (Res) JabiereService: ObstetricsAuthor Type: [...] Landeros)Rupture Date: 11/30/17 (11/30/17 0853 : Darcie (Karri) KARRI Landeros)Rupture Time: 0225 (11/30/17 0853 : Darcie (Karri) Tigre RN)Amniotic Fluid Color: Clear (11/30/17 0853 : Darcie (Karri) Tigre RN)Additional Findings: NoneFETAL MONITORINGFHT: 135s Moderate/acelerations present/decelerations absentToco: 2-4 minutesCategory: ILABSDiagnostic tests reviewed for today's visit: Most recent labs and imagingresults.Assessment/ Plan27 year old EGA:39w0d. Admitted for augmentation for PROM1. GBS-2. Pit per protocol3[place] [address]. [place] [address]. anomalies- prominent cisterna magna, bilateral periventrcularnodular heterotopia, [...] EF 55%.10. H/o maternal clubfoot-s/p repair as vramha31. H/o tobacco abuse?SIGNATURE: Marie Hassan DO PATIENT NAME: Zuleika LambATE: November 30, 2017 : 10:31 AM PAGER/CONTACT #: [phone] Normal [facility] PROGRESS HNO ID: [id number] thor: Darcie (Rn) Tigre, RNService: NursingAuthor Type: Registered NurseType: Progress NotesFiled: 11/30/2017 10:13 AMNote Text:Patient remains in shower. RN and boyfriend at side. EFM on telemetryand adjusted while patient in shower. Difficult to keep baby on. Normal [facility] PROGRESS HNO ID: [id number] thor: Yolanda (Res) SnyderService: ObstetricsAuthor Type: ResidentType: Progress NotesFiled: 11/30/2017 7:35 AMNote Text:In to place FB. Pt tolerated procedure well. Continues to leak clearfluid. Pt uncomfortable with contractions.Cat I FHT, reactive with accelsToco: 2-5 minsYolanda Barbosa, PGY-1Obstetrics and GynecologyPager [phone]/7:[address] [facility] Type and Screenon 11-30-2017 ABO group Nom (Bld) A Normal [facility] Comment on above: Performed By: #### T &S #### [place] [address] Comment See Below Normal [facility] Comment on above: Result Comment: Scre en &/or Xmatch expires in 3 days at 12 midnight. Redraw patient at that time. Performed By: #### T &S #### [place] [address] RH Type Positive Normal [facility] Comment on above: Performed By: #### T &S #### [place] [address] Progress Noteon 11-28-2017 Nozzle Tender Authentication Interface Message Text Routine VisitSubjective: Zuleika Villalta is being seen today for her obstetrical visit. She is at [id number]. Patient reports no complaints. Movement: normal. She [...] CYTOTEC IOL 12-02-17 at 5 pm at [facility]. Pre-Procedure formdone (CG)GBS culture: neg 11/07/17Contraception: [...] [facility] POC Jacqui would like her follow up and contraception with Dr. Ivan.The total patient time of the visit was 15 minutes, of which greater than 50% ofthe time was spent counseling and coordinating care. Normal [facility] Progress Noteon 11-22-2017 Nozzle Tender Authentication Interface Message Text FTC plan of care faxed to [facility] in event pt would arrive for urgent management. Normal [facility] Progress Noteon 11-21-2017 Nozzle Tender Authentication Interface Message Text Routine VisitSubjective: Zuleika Villalta is being seen today for her obstetrical visit. She is at [id number]. Patient reports that she went to [facility] last night due toconcerns [...] CYTOTEC IOL 12-02-17 at 5 pm at [facility]. Pre-Procedure formdone (CG)GBS culture: neg 11/07/17Contraception: [...] in the [facility] POC reviewedFollow up in one week for OB visit and BPP. The patient is scheduled for IOL on12/02/17.Oksana amado MD Normal [facility] Progress Noteon 11-12-2017 Nozzle Tender Authentication Interface Message Text Call from [facility] that pt presented there in labor. [facility] plan of care and ACOGs faxed by Toan Chen. Provided after hours MFM number provided. Normal [facility] Group B Strep Cultureon 10-16 Group B Strep Culture Group B Strep Cult ure: No Group B Streptococci isolated. Source: VAG Collected: 11/07/17 09:00 Site: Vaginal/Rectal Received : 11/07/17 22:01Group B Strep Culture FINAL 11/10/17 08:34 No Group B Streptococci isolated. Normal [facility] Comment on above: Performed By: #### G RBSC ####[facility] [place], [place] [phone] Progress Noteon 11-07-2017 Nozzle Tender Authentication Interface Message Text Routine VisitSubjective: Zuleika Villalta is being seen today for her obstetrical visit. She is at [id number]. Patient reports occasional nausea. No emesis. She [...] in the [facility] POC reviewedFollow up in one week for OB visit and BPP.Oksana Amado MD Normal [facility] Progress Noteon 10-24-2017 Nozzle Tender Authentication Interface Message Text Routine VisitSubjective: Zuleika [...] in the [facility] POC reviewedFollow up 2 weeks.The total patient time of the visit was 15 minutes, of which greater than 50% ofthe time was spent counseling and coordinating care.Marco Antonio Antonio, DO Normal [facility] Progress Noteon 10-15-2017 Nozzle Tender Authentication Interface Message Text Ped selection made. Updated prenatals Normal [facility] Progress Noteon 10-08-2017 Nozzle Tender Authentication Interface Message Text Thank you for [...] size. There was a patent foramen ovale, wlkoxfzei-wo-rseg shunt.Tricuspid valve:Normal tricuspid valve. There was normal [...] fetuses and in fetuses with CHD and warmbgivqkohm45v71, the ratio being below 0.3 )Impression and recommendations.1) Abnormal 3-vessel view, ascending aorta was moderately dilated. 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 thymic thoracic ratio (TT-ratio)=0.1 ( TT-ratio 0.44 in normal fetuses and in fetuses with CHD and iphgajixmhexq28q52, the ratio being below 0.3 )5) Normal [...] treatments, follow up fetalechocardiograms and follow ups.10) [place] Echocardiogram prior to the discharge from the nursery or earlier ifcardiac condition/status changes in any way. follow up and treatmentshould be determined on the basis of the findings on the initial echocardiogram.Counseling and/or coordination of care was greater than 35 minutes which is morethan 50% of the total time of 60 minutes spent on the encounter. Normal [facility] Nozzle Tender Authentication Interface Message Text Initial VisitSubjective: Zuleika [...] weeks for OB visit and BPP in [place].Oksana Amado MD Normal [facility] Cytogenomic Microarray Nivia sis of Bloodon 09-10-2017 Cytogenomic Microarray Analysis of Blood SEE BELOW Normal [facility] Comment on above: Result Comment: SPEC IMEN: BLOODCLINICAL INFORMATION: Learning disability[F81.9]TEST: CYTOGENOMIC MICROARRAY ANALYSISRESULT SUMMARY:Normal femaleNOMENCLATURE:arr(1-22,X)o7HXODHWMZQDYTEI & COMMENTS:The cytogenomics microarray analysis indicated no [...] whole genome microarray analysis was performed the FDA-clearedZula(R) Dx platform, which contains approximately 2.7million markers, including 1,953,246 unique non-polymorphic copy numberprobes and 743,304 single nucleotide polymorphism (SNP) probes. Thegenome-wide functional resolution of this assay is approximately 25 kbfor deletions and 50 kb for duplications. This microarray andassociated software (Chromosome Analysis Suite Dx) were manufactured [employer] and used by the Cytogenetics and Molecular DiagnosticsLaboratories of [facility] for the purpose ofidentifying DNA [...] further information regarding intendeduse and limitations, see [email or web address]com/cytoscandx.Note: The Cytogenetics Laboratory has this patient's [...] for additional testing. 09/19/2017 BIGG GARCIA, PH.D., [facility], [facility] 09/19/2017 Performed By: #### M [facility] ####[address] [phone] MRI (SINGLE)on 018 MRI (SINGLE) MRI (SINGLE)CL [...] 10:21 Normal [facility] Progress Noteon 09-10-2017 Nozzle Tender Authentication Interface Message Text The total patient time of the visit was 15 minutes, of which greater than 50% of the time was spent counseling and coordinating care. Normal [facility] Auto Diffon 09-03-2017 Basophils Auto #/vol (Bld) 0.1 E3/mcL Normal 0.0-0.2 [facility] Comment on above: Order Comment: Order Added by Anamaria Expert. Performed By: #### 2 [id number] ####KADEN [address] [place] [address] Basophils/100 WBC Auto (Bld) 0.5 % Normal 0.0-2.0 [facility] Comment on above: Order Comment: Order Added by Anamaria Expert. Performed By: #### 2 090369 ####KADEN [address] [place] [address] Eos Absolute 0.0 E3/mcL Normal 0.0-0.7 [facility] Comment on above: Order Comment: Order Added by Anamaria Expert. Performed By: #### 2 135130 ####KADEN [address] [place] [address] Eosinophils/100 leukocytes 0.4 % Normal 0.0-11.0 [facility] Comment on above: Order Comment: Order Added by Discern Expert. Performed By: #### 2 544389 ####KAD[address] [place] [address] Lymphocytes 1.3 E3/mcL Normal 1.2-3.4 [facility] Comment on above: Order Comment: Order Added by Anamaria Expert. Performed By: #### 2 081810 ####K[address] [place] [address] Lymphocytes/100 leukocytes 13.1 % Low 20.0-55.0 [facility] Comment on above: Order Comment: Order Added by Anamaria Expert. Performed By: #### 2 696908 ####K[address] [place] [address] [place] Absolute 0.4 E3/mcL Normal 0.0-0.7 [facility] Comment on above: Order Comment: Order Added by Discern Expert. Performed By: #### 2 847818 ####KADEN [address] [place] [address] Monocytes/100 leukocytes 4.3 % Normal 0.0-10.0 [facility] Comment on above: Order Comment: Order Added by Discern Expert. Performed By: #### 2 438955 ####K[address] [place] [address] Neutro Absolute 8.4 E3/mcL High 1.4-6.5 [facility] Comment on above: Order Comment: Order Added by Discern Expert. Performed By: #### 2 871591 ####K[address]EN [address] [place] [address] Neutro Auto 81.7 % High 37.0-75.0 [facility] Comment on above: Order Comment: Order Added by Discern Expert. Performed By: #### 2 913524 ####KADEN [address] [place] [address] CBC w/ Auto Diffon 8 Erythrocyte distribution width Auto Ratio (RBC) 13.1 % Normal 11.5-14.5 [facility] Comment on above: Performed By: #### 2 184954 ####K[address] [place] [address] Erythrocytes (RBC) 3.90 E6/mcL Normal 3.90-5.40 [facility] Comment on above: Performed By: #### 2 834598 ####K[address] [place] [address] Hematocrit (HCT) 34.7 % Low 36.0-48.0 [facility] Comment on above: Performed By: #### 2 346024 ####[address] [place] [address] Hemoglobin mass conc (Bld) 11.8 g/dL Low 12.0-16.0 [facility] Comment on above: Performed By: #### 2 930872 ####[address] [place] [address] MCH 30.3 pg Normal 27.0-31.0 [facility] Comment on above: Performed By: #### 2 690440 ####K[address] [place] [address] MCHC mass conc (RBC) 34.2 g/dL Normal 33.0-37.0 [facility] Comment on above: Performed By: #### 2 200496 ####KADEN [address] [place] [address] MCV 88.8 fL Normal 78.0-100.0 [facility] Comment on above: Performed By: #### 2 544944 ####K[address] [place] [address] Platelet mean volume (PMV) 7.3 fL Low 7.4-11.0 [facility] Comment on above: Performed By: #### 2 749889 ####KADEN [address] [place] [address] Platelets 218 E3/mcL Normal 130-400 [facility] Comment on above: Performed By: #### 2 887907 ####K[address] [place] [address] WBC (Leukocytes) 10.2 E3/mcL Normal 3.6-11.0 [facility] Comment on above: Performed By: #### 2 171896 ####[address] [place] [address] Gest Scr Glu 1 Hron 09-04-19 18 Glucose mass conc 113 mg/dL Normal 70-140 [facility] Comment on above: Performed By: #### 2 817795 ####[address] [place] [address] FISH Probeon 08-13-2017 Protein mass conc SEE BELOW Normal [facility] Comment on above: Result Comment: SPEC IMEN: BLOOD - [id number] INFORMATION:TEST: FISH Analysis of the DiGeorge/VCFS Region [...] Metaphase images: 2The Vysis LSI DARREN Spectrum [place] Probe contains the DARREN gene (3'non-coding region of TUPLE1, Q88V839, and E41E0401. The Vysis LSI ARSAspectrum Green Probe includes [...] Laboratory of [facility]. It hasnot been cleared or approved by [...] J Med Barbara [phone]:[id number],1995. BIGG GARCIA, PH.D., [facility], [facility] 08/16/2017 Performed By: #### F [facility] ####[facility] [place], [place] [phone] Progress Noteon 08-13-2017 Nozzle Tender Authentication Interface Message Text Met with patient [...] share information with FTC team, OB and publicity person signed. Pt plans to deliver in [place] with [facility]. Currently with Dr. Shekhar Dyson.Cook Night is undecided. [facility] list provided and discussed importance ofselection [...] care. Normal [facility] Nozzle Tender Authentication Interface Message Text Thank you for [...] size. There was a patent foramen ovale, dgfcjslta-cg-cgel shunt.Tricuspid valve:Normal tricuspid valve. There was normal [...] encounter. Normal [facility] Progress Noteon 07-18-2017 Nozzle Tender Authentication Interface Message Text [facility] MEDICINE CONSULTReferring/Requestin g Provider: [...] no palpitations. She usually doesnot see a business applications specialist, but did have a recent echo [...] a child 07/18/2017 Consider evaluation with social services specialist to assess for any needs duringpregnancy [...] for her genetics consult.She has transportation to [place] and is willing to be [facility].The total patient time of the visit was 30 minutes, of which was greater than50% of the time was spent counseling and coordinating care. Normal [facility] IGP W/hpv Rfx [id number] 05-07 Diagnosis: See Ref Lab Report Normal [facility] Comment on above: Order Comment: Thin Prep. Performed By: #### 2 [id number] ####KADEN [address] [place] [address] C Urineon 05-03-2017 C Urine Final Report: Normal skin alonso isolated Normal [facility] Comment on above: Performed By: #### 2 310653 ####KADEN [address] [place] [address] RPRon 05-03-2017 RPR Ql Non-Reactive Normal Non-Reacti ve [facility] Comment on above: Performed By: #### 2 039126 ####KADEN [address] [place] [address] Hep Bs Agon 05-02-2017 BSA (Body Surface Area) Negative Normal Negative [facility] Comment on above: Result Comment: Perf ormed At: [facility] [address] [place], [place] [id number] Vincent PhD Ph:[phone] Performed By: #### 2 223632 ####KADEN [address] [place] [address] ABO/Rh Echoon 05-01-2017 ABO/Rh E Interp... Positive Normal [facility] Comment on above: Performed By: #### 2 960215 ####KADEN [address] [place] 2[address] Antibody Screen Cap...on Screen Interp... Negative Normal [facility] Comment on above: Performed By: #### 2 914247 ####KADEN [address] [place] [address] Auto Diffon 05-01-2017 Basophils Auto #/vol (Bld) 0.0 E3/mcL Normal 0.0-0.2 [facility] Comment on above: Order Comment: Order Added by Discern Expert. Performed By: #### 2 839900 ####KADEN Urinalysis Manual [address] [place] [address] Basophils/100 WBC Auto (Bld) 0.4 % Normal 0.0-2.0 [facility] Comment on above: Order Comment: Order Added by Discern Expert. Performed By: #### 2 933004 ####KADEN Urinalysis Manual [address] [place] [address] Eos Absolute 0.1 E3/mcL Normal 0.0-0.7 [facility] Comment on above: Order Comment: Order Added by Discern Expert. Performed By: #### 2 006996 ####KADEN Urinalysis Manual [address] [place] [address] Eosinophils/100 leukocytes 0.7 % Normal 0.0-11.0 [facility] Comment on above: Order Comment: Order Added by Discern Expert. Performed By: #### 2 683485 ####KADEN Urinalysis Manual [address] [place] [address] Lymphocytes 1.8 E3/mcL Normal 1.2-3.4 [facility] Comment on above: Order Comment: Order Added by Discern Expert. Performed By: #### 2 283452 ####KADEN Urinalysis Manual [address] [place] [address] Lymphocytes/100 leukocytes 17.1 % Low 20.0-55.0 [facility] Comment on above: Order Comment: Order Added by Discern Expert. Performed By: #### 2 315464 ####KADEN Urinalysis Manual [address] [place] [address] [place] Absolute 0.5 E3/mcL Normal 0.0-0.7 [facility] Comment on above: Order Comment: Order Added by Discern Expert. Performed By: #### 2 556545 ####KADEN Urinalysis Manual [address] [place] [address] Monocytes/100 leukocytes 5.0 % Normal 0.0-10.0 [facility] Comment on above: Order Comment: Order Added by Discern Expert. Performed By: #### 2 969490 ####KADEN Urinalysis Manual [address] [place] [address] Neutro Absolute 8.0 E3/mcL High 1.4-6.5 [facility] Comment on above: Order Comment: Order Added by Discern Expert. Performed By: #### 2 621379 ####KADEN Urinalysis Manual [address] [place] [address] Neutro Auto 76.8 % High 37.0-75.0 [facility] Comment on above: Order Comment: Order Added by Discern Expert. Performed By: #### 2 649613 ####KADEN Urinalysis Manual [address] [place] [address] CBC w/ Auto Diffon 7 Erythrocyte distribution width Auto Ratio (RBC) 15.2 % High 11.5-14.5 [facility] Comment on above: Performed By: #### 2 556934 ####KADEN Urinalysis Manual [address] [place] [address] Erythrocytes (RBC) 4.90 E6/mcL Normal 3.90-5.40 [facility] Comment on above: Performed By: #### 2 208259 ####KADEN Urinalysis Manual [address] [place] [address] Hematocrit (HCT) 41.1 % Normal 36.0-48.0 [facility] Comment on above: Performed By: #### 2 531117 ####KADEN Urinalysis Manual [address] [place] [address] Hemoglobin mass conc (Bld) 13.5 g/dL Normal 12.0-16.0 [facility] Comment on above: Performed By: #### 2 163300 ####KADEN Urinalysis Manual [address] [place] [address] MCH 27.5 pg Normal 27.0-31.0 [facility] Comment on above: Performed By: #### 2 562601 ####KADEN Urinalysis Manual [address] [place] [address] MCHC mass conc (RBC) 32.8 g/dL Low 33.0-37.0 [facility] Comment on above: Performed By: #### 2 140661 ####KADEN Urinalysis Manual [address] [place] [address] MCV 83.9 fL Normal 78.0-100.0 [facility] Comment on above: Performed By: #### 2 544639 ####KADEN Urinalysis Manual [address] [place] [address] Platelet mean volume (PMV) 8.0 fL Normal 7.4-11.0 [facility] Comment on above: Performed By: #### 2 377612 ####KADEN Urinalysis Manual [address] [place] [address] Platelets 246 E3/mcL Normal 130-400 [facility] Comment on above: Performed By: #### 2 639037 ####KADEN Urinalysis Manual [address] [place] [address] WBC (Leukocytes) 10.4 E3/mcL Normal 3.6-11.0 [facility] Comment on above: Performed By: #### 2 582226 ####KADEN Urinalysis Manual [address] [place] [address] Chlamydia GC by PCRon 2016 Chlamydia by PCR. Not Detected Normal Not Detected [facility] Comment on above: Result Comment: Xper t CT/NG Assay performance has not been evaluated in patients less than 14 years of age. Performed By: #### 2 029220 ####KADENMorelia [address] [place] [address] Gonorrhoeae by PCR Not Detected Normal Not Detected [facility] Comment on above: Result Comment: Xper t CT/NG Assay performance has not been evaluated in patients less than 14 years of age. Performed By: #### 2 544708 ####KADEN [address] [place] [address] HIV-1/2 Ag/Abon 05-01-2017 HIV-1/2 Ag/Ab Non-Reactive Normal Non-Reacti ve [facility] Comment on above: Performed By: #### 2 264684 ####K[place]EN [place] [address] Rubella IgG Lvlon 05-01-2017 Rubella IgG Lvl 50.8 (POS) Normal [facility] Comment on above: Result Comment: <10I U/ml NON REACTIVE: NOT [id number] IU/ml RUBELLA SPECIFIC AB PRESENT, EVALUATEFURTHER TO DETERMINE IMMUNE STATUS >15 IU/ml REACTIVE, IMMUNE Performed By: #### 2 210717 ####KADEN [address] [place] [address] Auto Diffon 04-22-2017 Basophils Auto #/vol (Bld) 0.1 E3/mcL Normal 0.0-0.2 [facility] Comment on above: Order Comment: Order Added by Discern Expert. Performed By: #### 2 [id number] ####KADEN Urinalysis Manual [address]prttcih[address] [place], [place] [id number] Basophils/100 WBC Auto (Bld) 0.6 % Normal 0.0-2.0 [facility] Comment on above: Order Comment: Order Added by Discern Expert. Performed By: #### 2 968321 ####KADEN Urinalysis Manual Vrdd[address]iv[address] [place] [address] Eos Absolute 0.0 E3/mcL Normal 0.0-0.7 [facility] Comment on above: Order Comment: Order Added by Discern Expert. Performed By: #### 2 504919 ####KADEN Urinalysis Manual Xyfgtmtjya[address] [place] [address] Eosinophils/100 leukocytes 0.2 % Normal 0.0-11.0 [facility] Comment on above: Order Comment: Order Added by Discern Expert. Performed By: #### 2 556234 ####KADEN Urinalysis Manual [address]vprltjf[address] [place] [address] Lymphocytes 1.5 E3/mcL Normal 1.2-3.4 [facility] Comment on above: Order Comment: Order Added by Discern Expert. Performed By: #### 2 364677 ####KADEN Urinalysis Manual Grgenwtrsn[address] [place] [address] Lymphocytes/100 leukocytes 10.8 % Low 20.0-55.0 [facility] Comment on above: Order Comment: Order Added by Discern Expert. Performed By: #### 2 273627 ####KADEN Urinalysis Manual Uwawqyyunc9[address] [place] [address] [place] Absolute 0.6 E3/mcL Normal 0.0-0.7 [facility] Comment on above: Order Comment: Order Added by Discern Expert. Performed By: #### 2 234901 ####KADEN Urinalysis Manual Zhihoikafq9306[address] [place], [place] [address] Monocytes/100 leukocytes 4.4 % Normal 0.0-10.0 [facility] Comment on above: Order Comment: Order Added by Discern Expert. Performed By: #### 2 528382 ####KADEN Urinalysis Manual Vezekaoftp[address] [place] [address] Neutro Absolute 11.3 E3/mcL High 1.4-6.5 [facility] Comment on above: Order Comment: Order Added by Discern Expert. Performed By: #### 2 148347 ####KADEN Urinalysis Manual Vepcdppvyy8618[address] [place] [address] Neutro Auto 84.0 % High 37.0-75.0 [facility] Comment on above: Order Comment: Order Added by Discern Expert. Performed By: #### 2 261968 ####KADEN Urinalysis Manual Noaaesnsfm3034 [place] [address] BMPon 04-22-2017 BUN/Creatinine Ratio Unable to calc Normal 5.4-30.0 [facility] Comment on above: Performed By: #### 2 640695 ####KADEN Urinalysis Manual Rxpjejirky7025 [place] [address] Creatinine mg/dL Low 0.6-1.3 [facility] Comment on above: Performed By: #### 2 505129 ####KADEN Urinalysis Manual Poebhrzpjr[address] [place] [address] Urea nitrogen 7 mg/dL Normal 7-18 [facility] Comment on above: Performed By: #### 2 728001 ####KADEN Urinalysis Manual Vtekihjyhb[address] [place] [address] Calcium 9.6 mg/dL Normal 8.4-10.2 [facility] Comment on above: Performed By: #### 2 306397 ####KADEN Urinalysis Manual Hcbgvtjkeh[address] [place] [address] Chloride 103 mmol/L Normal 98-107 [facility] Comment on above: Performed By: #### 2 744778 ####KADEN Urinalysis Manual Puedgffkwo[address] [place] [address] CO2 21.7 mmol/L Low 24.0-30.0 [facility] Comment on above: Performed By: #### 2 327377 ####KADEN Urinalysis Manual Bqvgrlncsx3948 [place] [address] Glucose mass conc 89 mg/dL Normal 70-99 [facility] Comment on above: Performed By: #### 2 502168 ####KADEN Urinalysis Manual Iiupmkkjrc[address] [place] [address] Potassium molar conc 3.6 mmol/L Normal 3.5-5.1 [facility] Comment on above: Performed By: #### 2 483943 ####KADEN Urinalysis Manual Jkrpilmszh119[address] [place] [address] Sodium 136 mmol/L Normal 136-145 [facility] Comment on above: Performed By: #### 2 275396 ####KADEN Urinalysis Manual Mqmswvvmsu5920[address] [place] [address] CBC w/ Auto Diffon 7 Erythrocyte distribution width Auto Ratio (RBC) 14.8 % High 11.5-14.5 [facility] Comment on above: Performed By: #### 2 962260 ####KADEN Urinalysis Manual Knibhgpfbe8[address] [place] [address] Erythrocytes (RBC) 4.96 E6/mcL Normal 3.90-5.40 [facility] Comment on above: Performed By: #### 2 500171 ####KADEN Urinalysis Manual Msmkiogwes525[address] [place] [address] Hematocrit (HCT) 40.9 % Normal 36.0-48.0 [facility] Comment on above: Performed By: #### 2 697313 ####KADEN Urinalysis Manual Wjpvkwdqvz57225[address] [place] [address] Hemoglobin mass conc (Bld) 13.5 g/dL Normal 12.0-16.0 [facility] Comment on above: Performed By: #### 2 751618 ####KADEN Urinalysis Manual Nmdivrgsza9218[address] [place] [address] MCH 27.2 pg Normal 27.0-31.0 [facility] Comment on above: Performed By: #### 2 323906 ####KADEN Urinalysis Manual Zrhrbptxlm[address] [place] [address] MCHC mass conc (RBC) 33.0 g/dL Normal 33.0-37.0 [facility] Comment on above: Performed By: #### 2 328226 ####KADEN Urinalysis Manual Nekwsfvjcq[address] [place] [address] MCV 82.4 fL Normal 78.0-100.0 [facility] Comment on above: Performed By: #### 2 362636 ####KADEN Urinalysis Manual Pymeeadrxh8046 [place] [address] Platelet mean volume (PMV) 8.0 fL Normal 7.4-11.0 [facility] Comment on above: Performed By: #### 2 049360 ####KADEN Urinalysis Manual Joajpspeer[address] [place] [address] Platelets 237 E3/mcL Normal 130-400 [facility] Comment on above: Performed By: #### 2 440895 ####KADEN Urinalysis Manual Huqcpacdjo[address] [place] [address] WBC (Leukocytes) 13.5 E3/mcL High 3.6-11.0 [facility] Comment on above: Performed By: #### 2 256524 ####KADEN Urinalysis Manual Nfpmymxjdy46[address] [place] [address] UA Completeon 04-22-2017 UA Blood Negative Normal Negative [facility] Comment on above: Performed By: #### 2 858891 ####KADEN Urinalysis Manual Vrkjclgymh[address] [place] [address] UA Ascorbic Acid 40 mg/dL High <=19 [facility] Comment on above: Performed By: #### 2 347146 ####KADEN Urinalysis Manual Klcqqeijkk66[address] [place] [address] UA Bacteria 3+ /HPF Abnormal None [facility] Comment on above: Performed By: #### 2 073477 ####KADEN Urinalysis Manual Lkovznyihu[address] [place] [address] UA Clarity SltCloudy Abnormal Clear [facility] Comment on above: Performed By: #### 2 707645 ####KADEN Urinalysis Manual Nbpoaesxvy[address] [place] [address] UA Leuk Est Negative Normal Negative [facility] Comment on above: Performed By: #### 2 796279 ####KADEN Urinalysis Manual Pqjdzwakqo26[address] [place] [address] UA Mucous Few Abnormal Trace [facility] Comment on above: Performed By: #### 2 736450 ####KADEN Urinalysis Manual Leowlrlinx[address] [place] [address] UA Nitrite Negative Normal Negative [facility] Comment on above: Performed By: #### 2 885958 ####KADEN Urinalysis Manual Tejavzabmw1042 [place] [address] UA pH 8.0 Normal 4.6-8.0 [facility] Comment on above: Performed By: #### 2 383528 ####KADEN Urinalysis Manual Ievthjwqhz22[address] [place] [address] UA Protein Negative Normal Negative [facility] Comment on above: Performed By: #### 2 808308 ####KADEN Urinalysis Manual Nueccepvmm[address] [place] [address] UA Spec Grav 1.012 Normal 1.003-1.03 0 [facility] Comment on above: Performed By: #### 2 196897 ####KADEN Urinalysis Manual Hchyshbuck[address] [place] [address] UA Squam Epithelial 0-5 Normal 0-5 [facility] Comment on above: Performed By: #### 2 806084 ####KADEN Urinalysis Manual Mfzqkvuczh764[address] [place] [address] UA Urobilinogen Negative Normal [facility] Comment on above: Performed By: #### 2 376945 ####KADEN Urinalysis Manual Vblzuqxuut9[address] [place] [address] UA WBC 0-5 Normal 0-5 [facility] Comment on above: Performed By: #### 2 687898 ####KADEN Urinalysis Manual Pqavnrtnfs[address] [place] [address] Urine, color Yellow Normal Yellow [facility] Comment on above: Performed By: #### 2 792351 ####KADEN Urinalysis Manual Rmyzimuxuo6725[address] [place] [address] Urine, glucose Negative Normal Negative [facility] Comment on above: Performed By: #### 2 198431 ####KADEN Urinalysis Manual Qfpdzbdutw4837[address] [place] [address] Urine, ketones presence 1+ Abnormal Negative [facility] Comment on above: Performed By: #### 2 089175 ####KADEN Urinalysis Manual Xvurqfreqf[address] [place] [address] Urine, urobilinogen Negative Normal Negative [facility] Comment on above: Performed By: #### 2 485261 ####KADEN Urinalysis Manual Ffqueytrep7818 [place] [address] eGFRon 04-22-2017 eGFR AA >60 Normal [facility] Comment on above: Order Comment: Order added by Discern Expert. Performed By: #### 2 215479 ####KADEN Urinalysis Manual Ulidjcpgsb4142 [place] [address] eGFR (non-black) mL/min/{1.73_m2} Normal [facility] Comment on above: Order Comment: Order added by Discern Expert. Performed By: #### 2 484763 ####KADEN Urinalysis Manual Njwajlpoij5954 [place] [address] C Urineon 04-20-2017 C Urine Final Report: Normal skin alonso isolated Normal [facility] Comment on above: Performed By: #### 2 283601 ####KADEN Urinalysis Manual Ekxdzuocsn7449 [place] [address] BMPon 04-18-2017 BUN/Creatinine Ratio 15.0 ratio Normal 5.4-30.0 [facility] Comment on above: Performed By: #### 2 051925 ####KADEN OrpEuox5871 [place] [address] Creatinine 0.6 mg/dL Normal 0.6-1.3 [facility] Comment on above: Performed By: #### 2 710809 ####KADEN YdoEmeq3550 [place] [address] Urea nitrogen 9 mg/dL Normal 7-18 [facility] Comment on above: Performed By: #### 2 845610 ####KADEN ImcRstl8139 [place] [address] Calcium 9.6 mg/dL Normal 8.4-10.2 [facility] Comment on above: Performed By: #### 2 252888 ####KADEN WnsNuvp2068 [place] [address] Chloride 102 mmol/L Normal 98-107 [facility] Comment on above: Performed By: #### 2 189612 ####KADEN WrwDtrj9897 [place] [address] CO2 23.3 mmol/L Low 24.0-30.0 [facility] Comment on above: Performed By: #### 2 607412 ####KADEN BairdEbbJkqh5932 [place] [address] Glucose mass conc 93 mg/dL Normal 70-99 [facility] Comment on above: Performed By: #### 2 011581 ####KADEN BairdMqoGtiv8756 [place] 2[address]605 Potassium molar conc 3.5 mmol/L Normal 3.5-5.1 [facility] Comment on above: Performed By: #### 2 212069 ####KADEN BairdUscOytc2516 [place] [address] Sodium 136 mmol/L Normal 136-145 [facility] Comment on above: Performed By: #### 2 126432 ####KADEN FsxJcgp8777 [place] [address] UA Completeon 04-18-2017 UA Blood Negative Normal Negative [facility] Comment on above: Performed By: #### 2 132344 ####KADEN Urinalysis Manual Jcttlalypd1366 [place] [address] UA Amorph Chastity 2+ /HPF Abnormal None [facility] Comment on above: Performed By: #### 2 705681 ####KADEN Urinalysis Manual Iklpuutcaq4036 [place] [address] UA Ascorbic Acid 40 mg/dL High <=19 [facility] Comment on above: Performed By: #### 2 625858 ####KADEN Urinalysis Manual Oeinvhfpdl9583 [place] 2[address] UA Clarity Cloudy Abnormal Clear [facility] Comment on above: Performed By: #### 2 404610 ####KADEN Urinalysis Manual Epshihfidn9539 [place] [address] UA Leuk Est Negative Normal Negative [facility] Comment on above: Performed By: #### 2 009373 ####KADEN Urinalysis Manual Azsymueabt6124 [place] 2[address] UA Mucous Trace Abnormal Trace [facility] Comment on above: Performed By: #### 2 823552 ####KADEN Urinalysis Manual Afnkwhqrbv6858 [place] [address] UA Nitrite Negative Normal Negative [facility] Comment on above: Performed By: #### 2 273458 ####KADEN Urinalysis Manual Rwpldgdfza92[address] [place] [address] UA pH 7.0 Normal 4.6-8.0 [facility] Comment on above: Performed By: #### 2 489425 ####KADEN Urinalysis Manual Qqkidwquyg9[address] [place] [address] UA Protein Negative Normal Negative [facility] Comment on above: Performed By: #### 2 269129 ####KADEN Urinalysis Manual Cxiyehscex248[address] [place] [address] UA Spec Grav 1.018 Normal 1.003-1.03 0 [facility] Comment on above: Performed By: #### 2 189724 ####KADEN Urinalysis Manual Ylkpiqngsy6[address] [place] [address] UA Squam Epithelial 0-5 Normal 0-5 [facility] Comment on above: Performed By: #### 2 958152 ####KADEN Urinalysis Manual Wgtfidaepy5734[address] [place] [address] UA Urobilinogen Negative Normal [facility] Comment on above: Performed By: #### 2 332719 ####KADEN Urinalysis Manual Cytdyyguuv09[address] [place] [address] Urine, color Yellow Normal Yellow [facility] Comment on above: Performed By: #### 2 959579 ####KADEN Urinalysis Manual Kxqhctzleu0123[address] [place] [address] Urine, glucose Negative Normal Negative [facility] Comment on above: Performed By: #### 2 970475 ####KADEN Urinalysis Manual Zccyxhigjf8899[address] [place] [address] Urine, ketones presence 2+ Abnormal Negative [facility] Comment on above: Performed By: #### 2 237800 ####KADEN Urinalysis Manual Zotjcuyshd0520[address] [place] [address] Urine, urobilinogen Negative Normal Negative [facility] Comment on above: Performed By: #### 2 501316 ####KADEN Urinalysis Manual Nwzlxngphq4360 [place] [address] eGFRon 04-18-2017 eGFR (non-black) mL/min/{1.73_m2} Normal [facility] Comment on above: Order Comment: Order added by Discern Expert. Performed By: #### 1 4173895 ####KADEN UjwBtka0728 [place] [address] eGFR AA >60 Normal [facility] Comment on above: Order Comment: Order added by Discern Expert. Performed By: #### 1 1711457 ####KADEN NbxHzpn3687 [place] [address] Auto Diffon 04-11-2017 Basophils Auto #/vol (Bld) 0.1 E3/mcL Normal 0.0-0.2 [facility] Comment on above: Order Comment: Order Added by Anamaria Expert. Performed By: #### 2 197370 ####KADEN FieNits1871 [place] [address] Basophils/100 WBC Auto (Bld) 0.7 % Normal 0.0-2.0 [facility] Comment on above: Order Comment: Order Added by Anamaria Expert. Performed By: #### 2 885366 ####KADEN RrvWnmf0368 [place] [address] Eos Absolute 0.0 E3/mcL Normal 0.0-0.7 [facility] Comment on above: Order Comment: Order Added by Anamaria Expert. Performed By: #### 2 364667 ####KADEN TlpLexf2355 [place] [address] Eosinophils/100 leukocytes 0.1 % Normal 0.0-11.0 [facility] Comment on above: Order Comment: Order Added by Anamaria Expert. Performed By: #### 2 909505 ####KADEN WsaAnye6065 [place] [address] Lymphocytes 1.5 E3/mcL Normal 1.2-3.4 [facility] Comment on above: Order Comment: Order Added by Anamaria Expert. Performed By: #### 2 723595 ####KADEN VebQbtm3215 [place] [address] Lymphocytes/100 leukocytes 17.2 % Low 20.0-55.0 [facility] Comment on above: Order Comment: Order Added by Discern Expert. Performed By: #### 2 861982 ####KADEN Luceroo1025 [place] [address] [place] Absolute 0.6 E3/mcL Normal 0.0-0.7 [facility] Comment on above: Order Comment: Order Added by Discern Expert. Performed By: #### 2 575445 ####KADEN [address]eroo[address]25 [place] [address] Monocytes/100 leukocytes 6.6 % Normal 0.0-10.0 [facility] Comment on above: Order Comment: Order Added by Discern Expert. Performed By: #### 2 292398 ####KADEN [address]25 [place] [address] Neutro Absolute 6.7 E3/mcL High 1.4-6.5 [facility] Comment on above: Order Comment: Order Added by Discern Expert. Performed By: #### 2 735891 ####KADEN [address]o1025 [place] [address] Neutro Auto 75.4 % High 37.0-75.0 [facility] Comment on above: Order Comment: Order Added by Discern Expert. Performed By: #### 2 197240 ####KADEN BairdPpmZbmo8230 [place] [address] BMPon 04-11-2017 BUN/Creatinine Ratio 12.9 ratio Normal 5.4-30.0 [facility] Comment on above: Performed By: #### 2 016032 ####KADEN MpfLtty1758 [place] [address] Creatinine 0.7 mg/dL Normal 0.6-1.3 [facility] Comment on above: Performed By: #### 2 902403 ####KADEN BairdHwuDybw9986 [place] [address] Urea nitrogen 9 mg/dL Normal 7-18 [facility] Comment on above: Performed By: #### 2 832159 ####KADEN BairdDbbZhhi0811 [place] [address] Calcium 9.5 mg/dL Normal 8.4-10.2 [facility] Comment on above: Performed By: #### 2 867749 ####KADENMorelia BaiKpeZvxd8434 [place] [address] Chloride 105 mmol/L Normal 98-107 [facility] Comment on above: Performed By: #### 2 945405 ####KADEN EjwIxkf7886 [place] [address] CO2 22.5 mmol/L Low 24.0-30.0 [facility] Comment on above: Performed By: #### 2 337504 ####KADENMorelia BaiFnaVave2885 [place] [address] Glucose mass conc 92 mg/dL Normal 70-99 [facility] Comment on above: Performed By: #### 2 442936 ####KADENMorelia BaiFaeSpba0979 [place] [address] Potassium molar conc 3.6 mmol/L Normal 3.5-5.1 [facility] Comment on above: Performed By: #### 2 409011 ####KADENMorelia BaiEexIvat4629 [place] [address] Sodium 137 mmol/L Normal 136-145 [facility] Comment on above: Performed By: #### 2 587114 ####KADENMorelia BairdRnaYfgy0827 [place] [address] BhCG Quanton 04-11-2017 Beta hCG Qnt 8564.0 mIU/m Normal [facility] Comment on above: Result Comment: FEMA LE (NON-) & MALE <3 BORDERLINE 3 - 5 SUGGEST REPEAT TESTING FEMALE () 1 D - 1 WK 5 - 50 1 - 2 WK 50 - 500 2 - 3 WK 100 - 5000 3 - 4 WK 500 - 21791 4 - 5 WK 1000 - 76644 5 - 6 WK 34149 - 397126 6 - 8 W[place] 871[address] - 595515 2 - 3 [place] [address] - 234024 Performed By: #### 2 557157 ####KADENMorelia BairdTttLrdd3403 [place] [address] CBC w/ Auto Diffon 7 Erythrocyte distribution width Auto Ratio (RBC) 13.9 % Normal 11.5-14.5 [facility] Comment on above: Performed By: #### 2 379257 ####KADEN [address] [place] [address] Erythrocytes (RBC) 4.63 E6/mcL Normal 3.90-5.40 [facility] Comment on above: Performed By: #### 2 040397 ####KADEN [address] [place] [address] Hematocrit (HCT) 38.2 % Normal 36.0-48.0 [facility] Comment on above: Performed By: #### 2 462562 ####KADEN [address] [place] [address] Hemoglobin mass conc (Bld) 12.6 g/dL Normal 12.0-16.0 [facility] Comment on above: Performed By: #### 2 146766 ####KADEN [address]25 [place] [address] MCH 27.2 pg Normal 27.0-31.0 [facility] Comment on above: Performed By: #### 2 740297 ####KADEN [address] [place] 2659605 MCHC mass conc (RBC) 33.0 g/dL Normal 33.0-37.0 [facility] Comment on above: Performed By: #### 2 748301 ####KADEN [address]25 [place] [address] MCV 82.6 fL Normal 78.0-100.0 [facility] Comment on above: Performed By: #### 2 691674 ####KADEN [address] [place] [address] Platelet mean volume (PMV) 8.0 fL Normal 7.4-11.0 [facility] Comment on above: Performed By: #### 2 288778 ####KADEN [address] [place] [address] Platelets 233 E3/mcL Normal 130-400 [facility] Comment on above: Performed By: #### 2 364709 ####KADEN [address] [place] [address] WBC (Leukocytes) 9.0 E3/mcL Normal 3.6-11.0 [facility] Comment on above: Performed By: #### 2 030157 ####KADEN SvsGqnl6114 [place] [address] UA Completeon 04-11-2017 UA Blood Negative Normal Negative [facility] Comment on above: Result Comment: High concentration of Ascorbic Acid present in urine. This may cause False Negative Occ Blood. Review microscopic results and patient's clinical symptoms. Performed By: #### 8 [id number] ####KADEN Urinalysis Automated Gtdfhcqwwa2834 [place] [address] UA Amorph Chastity 1+ /HPF Abnormal None [facility] Comment on above: Performed By: #### 8 [id number] ####KADEN Urinalysis Automated Pltnvicxec[address] [place] [address] UA Ascorbic Acid 40 mg/dL High <=19 [facility] Comment on above: Performed By: #### 8 [id number] ####KADEN Urinalysis Automated Imfwrzcmrv[address] [place] [address] UA Bacteria Trace Abnormal None [facility] Comment on above: Performed By: #### 8 7447439 ####KADEN Urinalysis Automated Amwpttvyyx[address] [place] [address] UA Clarity Cloudy Abnormal Clear [facility] Comment on above: Performed By: #### 8 0645743 ####KADEN Urinalysis Automated Dycyvrqpge[address] [place] [address] UA Leuk Est Negative Normal Negative [facility] Comment on above: Performed By: #### 8 2343160 ####KADEN Urinalysis Automated Hzuxososfk2898 [place] [address] UA Mucous Few Abnormal Trace [facility] Comment on above: Performed By: #### 8 2894290 ####KADEN Urinalysis Automated Mbbzbqmice8087 [place] [address] UA Nitrite Negative Normal Negative [facility] Comment on above: Performed By: #### 8 9290180 ####KADEN Urinalysis Automated Uhwaiskbxt[address] [place] [address] UA pH 7.0 Normal 4.6-8.0 [facility] Comment on above: Performed By: #### 8 1976023 ####KADEN Urinalysis Automated Putpymnazb7281 [place] [address] UA Protein Negative Normal Negative [facility] Comment on above: Performed By: #### 8 [id number] ####KADEN Urinalysis Automated Cacpizyqtn8805 [place] [address] UA Spec Grav 1.025 Normal 1.003-1.03 0 [facility] Comment on above: Performed By: #### 8 2269246 ####KADEN Urinalysis Automated Evdhrzzgyv0193 [place] [address] UA Squam Epithelial 5-10 Abnormal 0-5 [facility] Comment on above: Performed By: #### 8 2004167 ####KADEN Urinalysis Automated Fgcwqleucy4615 [place] [address] UA Urobilinogen 2.0 mg/dL Abnormal [facility] Comment on above: Performed By: #### 8 [id number] ####KADEN Urinalysis Automated [id number] [place] [address] Urine, color Yellow Normal Yellow [facility] Comment on above: Performed By: #### 8 [id number] ####KADEN Urinalysis Automated Bbxrxocuue2043 [place] [address] Urine, erythrocytes 0-3 Normal 0-3 [facility] Comment on above: Performed By: #### 8 [id number] ####KADEN Urinalysis Automated Rpfwofvspk9054 [place] [address] Urine, glucose Negative Normal Negative [facility] Comment on above: Performed By: #### 8 [id number] ####KADEN Urinalysis Automated Dxqohztapl4160 [place] [address] Urine, ketones presence 2+ Abnormal Negative [facility] Comment on above: Performed By: #### 8 [id number] ####KADEN Urinalysis Automated Gqyvdxhcgl5665 [place] [address] Urine, urobilinogen Negative Normal Negative [facility] Comment on above: Performed By: #### 8 [id number] ####KADEN Urinalysis Automated Uwcxkokhms4104 [place] [address] eGFRon 04-11-2017 eGFR (non-black) mL/min/{1.73_m2} Normal [facility] Comment on above: Order Comment: Order added by Discern Expert. Performed By: #### 1 [id number] ####KADEN OoxJffw0451 [place] [address] eGFR AA >60 Normal [facility] Comment on above: Order Comment: Order added by Discern Expert. Performed By: #### 1 [id number] ####KADEN PnnOyvf8352 [place] [address] U BhCG Qlton 03-20-2017 HCG.beta subunit Qn Negative Normal Neg [facility] Comment on above: Performed By: #### 2 [id number] ####KADEN Urinalysis Manual Dwvslpfyzb6511 [place] [address] UA Completeon 03-20-2017 UA Blood Negative Normal Negative [facility] Comment on above: Performed By: #### 8 [id number] ####KADEN Urinalysis Automated Lqhykcuubj7247 [place] [address] UA Amorph Chastity 1+ /HPF Abnormal None [facility] Comment on above: Performed By: #### 8 [id number] ####KADEN Urinalysis Automated Sqgttmepsn1015 [place] [address] UA Bacteria 2+ /HPF Abnormal None [facility] Comment on above: Performed By: #### 8 [id number] ####KADEN Urinalysis Automated Bdrlhcsidg5458 [place] [address] UA Clarity Cloudy Abnormal Clear [facility] Comment on above: Performed By: #### 8 [id number] ####KADEN Urinalysis Automated Gztsbcmqgx0584 [place] [address] UA Leuk Est 1+ Abnormal Negative [facility] Comment on above: Performed By: #### 8 [id number] ####KADEN Urinalysis Automated Exckndfppu7444 [place] [address] UA Mucous Occasional Abnormal Trace [facility] Comment on above: Performed By: #### 8 [id number] ####KADEN Urinalysis Automated Sjwjqyylzs9669 [place] [address] UA Nitrite Negative Normal Negative [facility] Comment on above: Performed By: #### 8 [id number] ####KADEN Urinalysis Automated Iwpxzlxmcq1361 [place] [address] UA pH 6.0 Normal 4.6-8.0 [facility] Comment on above: Performed By: #### 8 [id number] ####KADEN Urinalysis Automated Uzteglgjcl1404 [place] [address] UA Protein 1+ Abnormal Negative [facility] Comment on above: Performed By: #### 8 [id number] ####KADEN Urinalysis Automated Ledfwmdlgl3229 [place] [address] UA Spec Grav 1.019 Normal 1.003-1.03 0 [facility] Comment on above: Performed By: #### 8 [id number] ####KADEN Urinalysis Automated Fbiwxbwrmp1239 [place] [address] UA Squam Epithelial 5-10 Abnormal 0-5 [facility] Comment on above: Performed By: #### 8 [id number] ####KADEN Urinalysis Automated [address] [place] [address] UA Urobilinogen Negative Normal [facility] Comment on above: Performed By: #### 8 [id number] ####KADEN Urinalysis Automated Vvesgorbsj5700 [place] [address] UA WBC >50 Abnormal 0-5 [facility] Comment on above: Performed By: #### 8 [id number] ####KADEN Urinalysis Automated [address] [place] [address] Urine, color Yellow Normal Yellow [facility] Comment on above: Performed By: #### 8 [id number] ####KADEN Urinalysis Automated [address] [place] [address] Urine, erythrocytes 5-10 Abnormal 0-3 [facility] Comment on above: Performed By: #### 8 [id number] ####KADEN Urinalysis Automated Dbzrnfddza5982 [place] [address] Urine, glucose Negative Normal Negative [facility] Comment on above: Performed By: #### 8 [id number] ####KADEN Urinalysis Automated Tsltmynkkz4449 [place] [address] Urine, ketones presence Negative Normal Negative [facility] Comment on above: Performed By: #### 8 [id number] ####KADEN Urinalysis Automated Uklgjsvcri5945 [place] [id number] Urine, urobilinogen Negative Normal Negative [facility] Comment on above: Performed By: #### 8 [id number] ####KADEN Urinalysis Automated Jqwmvikqqo5374 [place] [address] Vital Signs Date Time Vital Sign Value Performing Clinician Facility 12-14-2024 10:45-0400 Body mass index (BMI) [Ratio] 28.12 kg/m2 Cuong Diana DO Work Phone: [facility] 12-14-2024 10:45-0400 Body weight 79.04 kg Cuong Diana DO Work Phone: [facility] 12-14-2024 10:45-0400 Diastolic blood pressure 82 mm[Hg] Cuong Diana DO Work Phone: [facility] 12-14-2024 10:45-0400 Systolic blood pressure 118 mm[Hg] Cuong Diana DO Work Phone: [facility] 11-23-2024 14:56-0400 Body mass index (BMI) [Ratio] 27.6 kg/m2 Cuong Diana DO Work Phone: [facility] 11-23-2024 14:56-0400 Body weight 77.56 kg Cuong Diana DO Work Phone: [facility] 11-23-2024 14:56-0400 Diastolic blood pressure 76 mm[Hg] Cuong Diana DO Work Phone: [facility] 11-23-2024 14:56-0400 Systolic blood pressure 122 mm[Hg] Cuong Diana DO Work Phone: [facility] 11-16-2024 13:44-0400 Body height 165.1 cm Malachi Macdonald MD Work Phone: [facility] 11-16-2024 13:44-0400 Body mass index (BMI) [Ratio] 28.79 kg/m2 Malachi Macdonald MD Work Phone: [facility] 11-16-2024 13:44-0400 Body weight 78.47 kg Malachi Macdonald MD Work Phone: [facility] 11-16-2024 13:44-0400 Diastolic blood pressure 77 mm[Hg] Malachi Macdonald MD Work Phone: [facility] 11-16-2024 13:44-0400 Heart rate 87 /min Malachi Macdonald MD Work Phone: [facility] 11-16-2024 13:44-0400 Systolic blood pressure 117 mm[Hg] Malachi Macdonald MD Work Phone: [facility] 11-10-2024 10:27-0400 Body mass index (BMI) [Ratio] 27.92 kg/m2 Cuong Diana DO Work Phone: [facility] 11-10-2024 10:27-0400 Body weight 78.47 kg Cuong Diana DO Work Phone: [facility] 11-10-2024 10:27-0400 Diastolic blood pressure 60 mm[Hg] Cuong Diana DO Work Phone: [facility] 11-10-2024 10:27-0400 Systolic blood pressure 110 mm[Hg] Cuong Diana DO Work Phone: [facility] 10-26-2024 11:46-0400 Body mass index (BMI) [Ratio] 27.34 kg/m2 Cuong Diana DO Work Phone: [facility] 10-26-2024 11:46-0400 Body weight 76.84 kg Cuong Diana DO Work Phone: [facility] 10-26-2024 11:46-0400 Diastolic blood pressure 70 mm[Hg] Cuong Diana DO Work Phone: [facility] 10-26-2024 11:46-0400 Systolic blood pressure 120 mm[Hg] Cuong Diana DO Work Phone: [facility] 10-12-2024 09:30-0400 Body mass index (BMI) [Ratio] 27.16 kg/m2 Cuong Diana DO Work Phone: [facility] 10-12-2024 09:30-0400 Body weight 76.32 kg Cuong Diana DO Work Phone: [facility] 10-12-2024 09:30-0400 Diastolic blood pressure 78 mm[Hg] Cuong Diana DO Work Phone: [facility] 10-12-2024 09:30-0400 Systolic blood pressure 120 mm[Hg] Cuong Diana DO Work Phone: [facility] 09-28-2024 13:39-0400 Diastolic blood pressure 74 mm[Hg] Malachi Macdonald MD Work Phone: [facility] 09-28-2024 13:39-0400 Heart rate 79 /min Malachi Macdonald MD Work Phone: [facility] 09-28-2024 13:39-0400 Systolic blood pressure 114 mm[Hg] Malachi Macdonald MD Work Phone: [facility] 09-10-2024 11:56-0400 Body mass index (BMI) [Ratio] 26.76 kg/m2 Cuong Diana DO Work Phone: [facility] 09-10-2024 11:56-0400 Body weight 75.21 kg Cuong Diana DO Work Phone: [facility] 09-10-2024 11:56-0400 Diastolic blood pressure 80 mm[Hg] Cuong Diana DO Work Phone: [facility] 09-10-2024 11:56-0400 Systolic blood pressure 110 mm[Hg] Cuong Diana DO Work Phone: [facility] 08-27-2024 14:22-0400 Body mass index (BMI) [Ratio] 27.12 kg/m2 Ashwin Packer MD Work Phone: [facility] 08-27-2024 14:22-0400 Body weight 73.94 kg Ashwin Packer MD Work Phone: [facility] 08-27-2024 14:22-0400 Diastolic blood pressure 64 mm[Hg] Ashwin Packer MD Work Phone: [facility] 08-27-2024 14:22-0400 Systolic blood pressure 104 mm[Hg] Ashwin Packer MD Work Phone: [facility] 08-13-2024 11:48-0500 Body mass index (BMI) [Ratio] 25.95 kg/m2 Elena CHRISTENSEN Work Phone: [facility] 08-13-2024 11:48-0500 Body weight 72.94 kg Elena Fofana PA Work Phone: [facility] 08-13-2024 11:48-0500 Diastolic blood pressure 68 mm[Hg] Elena Fofana PA Work Phone: [facility] 08-13-2024 11:48-0500 Systolic blood pressure 112 mm[Hg] Elena Fofana PA Work Phone: [facility] 07-20-2024 11:13-0500 Body mass index (BMI) [Ratio] 25.73 kg/m2 Cuong Diana DO Work Phone: [facility] 07-20-2024 11:13-0500 Body weight 72.3 kg Cuong Diana DO Work Phone: [facility] 07-20-2024 11:13-0500 Diastolic blood pressure 60 mm[Hg] Cuong Diana DO Work Phone: [facility] 07-20-2024 11:13-0500 Systolic blood pressure 100 mm[Hg] Cuong Diana DO Work Phone: [facility] 06-18-2024 10:37-0500 Body mass index (BMI) [Ratio] 25.02 kg/m2 [facility] 06-18-2024 10:37-0500 Body weight 70.31 kg [facility] Nurse [facility] 06-18-2024 10:37-0500 Diastolic blood pressure 72 mm[Hg] [facility] 06-18-2024 10:37-0500 Systolic blood pressure 118 mm[Hg] [facility] 07-18-2023 10:30-0500 Body mass index (BMI) [Ratio] 26.7 kg/m2 Cuong Diana DO Work Phone: [facility] 07-18-2023 10:30-0500 Body weight 75.03 kg Cuong Diana DO Work Phone: [facility] 07-18-2023 10:30-0500 Diastolic blood pressure 68 mm[Hg] Cuong Diana DO Work Phone: [facility] 07-18-2023 10:30-0500 Systolic blood pressure 106 mm[Hg] Cuong Diana DO Work Phone: [facility] 02-11-2023 14:13-0400 Body height 165.1 cm SADAF Wyatt Work Phone: [facility] 02-11-2023 14:13-0400 Body temperature 97.9 [degF] SADAF Wyatt Work Phone: [facility] 02-11-2023 14:13-0400 Body weight 70.55 kg SADAF Wyatt Work Phone: [facility] 02-11-2023 14:13-0400 Diastolic blood pressure 80 mm[Hg] SADAF Wyatt Work Phone: [facility] 02-11-2023 14:13-0400 Heart rate 60 /min SADAF Wyatt Work Phone: [facility] 02-11-2023 14:13-0400 Respiratory rate 15 /min SADAF Wyatt Work Phone: [facility] 02-11-2023 14:13-0400 SaO2% (BldA) [Mass fraction] 99 % SADAF Wyatt Work Phone: [facility] 02-11-2023 14:13-0400 Systolic blood pressure 134 mm[Hg] FERMIN-Ventura Wyatt Work Phone: [facility] 02-08-2023 12:36-0400 Body height 165.1 cm SADAF Wyatt Work Phone: [facility] 02-08-2023 12:36-0400 Body temperature 98.2 [degF] FERMIN-Ventura Wyatt Work Phone: [facility] 02-08-2023 12:36-0400 Body weight 72.57 kg FERMIN-Ventura Wyatt Work Phone: [facility] 02-08-2023 12:36-0400 Diastolic blood pressure 84 mm[Hg] SADAF Wyatt Work Phone: [facility] 02-08-2023 12:36-0400 Heart rate 74 /min SADAF Wyatt Work Phone: [facility] 02-08-2023 12:36-0400 Respiratory rate 15 /min SADAF Wyatt Work Phone: [facility] 02-08-2023 12:36-0400 SaO2% (BldA) [Mass fraction] 98 % SADAF Wyatt Work Phone: [facility] 02-08-2023 12:36-0400 Systolic blood pressure 150 mm[Hg] SADAF Wyatt Work Phone: [facility] 12-19-2022 14:43-0400 Body temperature 96.9 [degF] SADAF Wyatt Work Phone: [facility] 12-19-2022 14:43-0400 Diastolic blood pressure 74 mm[Hg] SADAF Wyatt Work Phone: [facility] 12-19-2022 14:43-0400 Heart rate 59 /min SADAF Wyatt Work Phone: [facility] 12-19-2022 14:43-0400 Respiratory rate 18 /min PA-C Andie Wyatt Work Phone: [facility] 12-19-2022 14:43-0400 SaO2% (BldA) [Mass fraction] 100 % PA-C Andie Wytat Work Phone: [facility] 12-19-2022 14:43-0400 Systolic blood pressure 115 mm[Hg] PA-C Andie Wyatt Work Phone: [facility] 12-19-2022 14:00-0400 Diastolic blood pressure 89 mm[Hg] PA-C Andie Wyatt Work Phone: [facility] 12-19-2022 14:00-0400 Heart rate 79 /min PA-C Andie Wyatt Work Phone: [facility] 12-19-2022 14:00-0400 Respiratory rate 16 /min PA-C Andie Wyatt Work Phone: [facility] 12-19-2022 14:00-0400 SaO2% (BldA) [Mass fraction] 99 % PA-C Andie Wyatt Work Phone: [facility] 12-19-2022 14:00-0400 Systolic blood pressure 150 mm[Hg] PA-C Andie Wyatt Work Phone: [facility] 12-19-2022 03:30-0400 Body height 165.1 cm PA-C Andie Wyatt Work Phone: [facility] 12-19-2022 03:30-0400 Body weight 72.2 kg PA-Ventura Wyatt Work Phone: [facility] 12-18-2022 23:07-0400 Body height 165.1 cm PA-C Andie Wyatt Work Phone: [facility] 12-18-2022 23:07-0400 Body weight 74.2 kg PA-C Andie Wyatt Work Phone: [facility] 12-18-2022 23:05-0400 Body temperature 98.5 [degF] PA-C Andie Wyatt Work Phone: [facility] 08-20-2022 14:31-0500 Body height 165.1 cm PA-Ventura Wyatt Work Phone: [facility] 08-20-2022 14:31-0500 Body temperature 98.9 [degF] SADAF Wyatt Work Phone: [facility] 08-20-2022 14:31-0500 Body weight 71.55 kg PA-Ventura Wyatt Work Phone: [facility] 08-20-2022 14:31-0500 Diastolic blood pressure 87 mm[Hg] PA-Ventura Wyatt Work Phone: [facility] 08-20-2022 14:31-0500 Heart rate 97 /min SADAF Wyatt Work Phone: [facility] 08-20-2022 14:31-0500 Respiratory rate 18 /min PA-Ventura Wyatt Work Phone: [facility] 08-20-2022 14:31-0500 SaO2% (BldA) [Mass fraction] 98 % PA-Ventura Wyatt Work Phone: [facility] 08-20-2022 14:31-0500 Systolic blood pressure 135 mm[Hg] SADAF Wyatt Work Phone: [facility] 02-08-2022 03:06-0400 Body weight 68.[address] CUONG ORTIZ . [facility] Comment on above: Performed By: #### AFPMAT #### [facility] [address] [place] [address] Dr. Juan Antonio Ibarra 02-05-2022 18:24-0400 Body height 165.1 cm PAZhao Wyatt Work Phone: [facility] 02-05-2022 18:24-0400 Body temperature 98.3 [degF] SADAF Wyatt Work Phone: [facility] 02-05-2022 18:24-0400 Body weight 67.9 kg SADAF Wyatt Work Phone: [facility] 02-05-2022 18:24-0400 Diastolic blood pressure 68 mm[Hg] SADAF Wyatt Work Phone: [facility] 02-05-2022 18:24-0400 Heart rate 92 /min SADAF Wyatt Work Phone: [facility] 02-05-2022 18:24-0400 Respiratory rate 18 /min SADAF Wyatt Work Phone: [facility] 02-05-2022 18:24-0400 SaO2% (BldA) [Mass fraction] 99 % SADAF Wyatt Work Phone: [facility] 02-05-2022 18:24-0400 Systolic blood pressure 125 mm[Hg] SADAF Wyatt Work Phone: [facility] Encounters Encounter Date Encounter Type Care Provider Facility Start: 12-15-2024 End: 12-15-2024 Clinisync Result Encounter Cuong Diana DO Work Phone: [facility] External [facility] Unsolicited Start: 12-15-2024 End: 12-15-2024 Clinisync Result Encounter Cuong Diana DO Work Phone: [facility] Unsolicited Start: 12-14-2024 End: 12-14-2024 Bamboo flowsheet Cuong Diana DO Work Phone: [facility] Start: 12-14-2024 End: 12-14-2024 Bamboo flowsheet Cuong Diana DO Work Phone: [facility] Start: 12-14-2024 End: 12-14-2024 ambulatory CUONG DIANA Not Available Start: 12-14-2024 End: 12-14-2024 Office outpatient visit 15 minutes Cuong Diana DO Work Phone: [facility] Comment on above: Third trimester preg junaid ([facility]); 37 weeks gestation of ([facility]); Nadia cisterna magna (HCC) Start: 12-08-2024 End: 12-08-2024 Clinisync Result Encounter [...] trimester preg junaid ([facility]); 36 weeks gestation of ([facility]) Start: 12-01-2024 End: 12-01-2024 Clinisync Result Encounter [...] trimester preg junaid ([facility]); 35 weeks gestation of ([facility]) Start: 11-30-2024 End: 11-30-2024 ambulatory CUONG DIANA [...] Macdonald MD Work Phone: [facility] Comment on above: 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 , 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 (Primary Dx); Nadia cisterna magna ([facility]) - Start: 11-16-2024 End: 11-16-2024 ambulatory CUONG R DIANA [facility] Start: 11-10-2024 End: 11-10-2024 Bamboo flowsheet [...] Available Start: 10-12-2024 End: 10-12-2024 Bamboo flowsheet Cuogn Diana DO Work Phone: [facility] [...] Macdonald MD Work Phone: [facility] Comment on above: Nadia cisterna magna (CMS-HCC) - (Primary Dx); Nodular heterotopia (CMS-HCC) - ; 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 , 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 Start: 09-28-2024 End: 09-28-2024 ambulatory CUONG R DIANA [facility] Start: 09-10-2024 End: 09-10-2024 Bamboo flowsheet [...] encounter procedure Cuong Diana DO Work Phone: [facility] Start: 09-10-2024 End: 09-10-2024 ambulatory CUONGRoberto BETHEAO Not Available Start: 08-27-2024 End: 08-27-2024 Office consultation new/estab patient 60 min Ashwin Packer MD Work Phone: [facility] Comment on above: Suspected anom kaitlynn, antepartum, single or unspecified fetus (Primary Dx); 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 , 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; Family history of genetic disorder; Fetus with trisomy 13, single gestation; CM (congenital malformation) Start: 08-27-2024 End: 08-27-2024 Chart abstracting Scanning Provider External [facility] Start: 08-27-2024 End: 08-27-20[facility] Start: 08-13-2024 End: 08-13-2024 [...] 06-22-2024 ambulatory Andie Wyatt PA-C Work Phone: [facility] Work Phone: Start: 06-22-2024 End: 06-22-2024 Departed Referred Andie Wyatt PA-C Work Phone: [facility] Start: 06-18-2024 End: 06-18-2024 [facility]ulatory [facility] Nurse [facility] Comment on above: GA: 12w2d Start: 12-26-2023 End: 12-26-2023 [facility] Start: 12-24-2023 End: 12-24-2023 ambulatory CUONG DIANA Not Available Start: 07-22-2023 Documentation procedure Lucio Renee [facility] Work Phone: [facility] Comment on above: Outgoing Ca ll Start: 07-18-2023 Clinisync Result Encounter Cuong Diana DO Work Phone: [facility] External [facility] Unsolicited Start: 07-18-2023 Clinisync Result Encounter Cuong Diana DO Work Phone: [facility] External [facility] Unsolicited Start: 07-18-2023 End: 07-18-2023 Office outpatient visit 15 minutes Cuong Ortiz DO Work Phone: [facility] Comment on above: Second trimester pre gnancy Start: 07-03-2023 End: 07-03-2023 Telemedicine consultation with patient Rosaura BANKS Work Phone: [facility] Comment on above: Family history of ge netic disorder (Primary Dx); Genetic testing; Fetus with trisomy 13, single gestation Start: 06-25-2023 Chart abstracting Scanning Pro vider External [facility] Start: 02-11-2023 End: 02-11-2023 Emergency department patient visit SADAF Wyatt Work Phone: [facility] Work Phone: Start: 02-08-2023 End: 02-08-2023 Emergency department patient visit SADAF Wyatt Work Phone: [facility] Work Phone: Start: 12-19-2022 End: 12-19-2022 Evaluation and management of inpatient SADAF Wyatt Work Phone: [facility] Work Phone: Start: 12-19-2022 End: 12-19-2022 observation encounter SADAF Wyatt Work Phone: [facility] Work Phone: Start: 10-24-2022 End: 10-24-[address] CUONG ORTIZ . Facility: Start: 10-23-2022 Registered Recurring SADAF Wyatt Work Phone: [facility] Start: 08-20-2022 End: 08-20-2022 Emergency department patient visit SADAF Wyatt Work Phone: [facility] Work Phone: Start: 07-23-[address] CUONG ORTIZ . Facili ty:[facility] Start: 07-09-2022 End: 07-09-[address] CUONG ORTIZ . Facility: Start: 07-05-2022 End: 07-07-2022 Evaluation and management of inpatient DR CUONG ORTIZ . Facility:[facility] Start: 07-02-2022 End: 07-02-2022 ambulatory [facility] Facility:[facility] Start: 06-28-2022 End: 06-28-[address] CUONG ORTIZ . Facility:[facility] Start: 06-21-2022 End: 06-21-2022 [facility] Facility: Start: 06-16-2022 End: 06-16-[address] CUONG [...] . Facility:[facility] Start: 05-24-2022 End: 05-24-2022 [facility] Facility:[facility] Start: 04-04-2022 End: 04-05-2022 ambulatory [...] department patient visit SADAF Wyatt Work Phone: [facility] Start: 12-26-2021 End: 12-27-[address] CUONG ORTIZ . Facility:[facility] Start: 12-07-2021 End: 12-08-[address] CUONG ORTIZ . Facility: Start: 12-27-2017 End: 12-27-2017 Patient encounter Christian Ivan Facility:[facility] Start: 12-12-2017 End: 12-12-2017 Emergency department patient visit Luke Barbosa Facility:[facility] Start: 12-12-2017 Patient encounter Facil [id number] Start: 12-07-2017 Evaluation and manag ement of inpatient CLARA JAMA Facility:[facility] Start: 12-03-2017 Evaluation and manag ement of inpatient CLARAVASQUEZ JAMA Facility:[facility] Start: 12-03-2017 Patient encounter procedure CLARAVASQUEZ DERASE Facility:[facility] Start: 12-02-2017 Evaluation and manag ement of inpatient CLARA DERASE Facility:[facility] Start: 11-30-2017 End: 12-02-2017 Evaluation and management of inpatient CLARA TERESA JAMA [facility] Start: 11-30-2017 End: 11-30-2017 Patient encounter Eloisa Nguyen Facility:[facility] Start: 11-30-2017 Patient encounter Facil [id number] Start: 11-28-2017 End: 11-28-2017 Patient encounter CLARA JAMA [facility] Start: 11-21-2017 End: 11-21-2017 Patient encounter OKSANA MASON [facility] Start: 11-21-2017 End: 11-21-2017 Patient encounter Juanita Cole Facility:[facility] Start: 11-20-2017 Patient encounter Facil [id number] Start: 11-17-2017 End: 11-17-2017 Patient encounter Christian Ivan Facility:[facility] Start: 11-16-2017 Patient encounter Quyen [id number] Start: 11-07-2017 End: 11-07-2017 Patient encounter OKSANA AMADO [facility] Start: 10-31-2017 End: 10-31-2017 Patient encounter CLARA JAMA [facility] Start: 10-24-2017 End: 10-24-2017 Patient encounter MARCO ANTONIO Bertin ANTONIO [facility] Start: 10-16-2017 End: 10-16-2017 Patient encounter Christian Ivan Facility:[facility] Start: 10-08-2017 End: 10-08-2017 Patient encounter [facility] Start: 10-08-2017 End: 10-08-2017 Patient encounter OKSANA AMADO [facility] Start: 10-01-2017 End: 10-02-2017 Patient encounter Christian Ivan Facility:[facility] Start: 09-10-2017 End: 09-11-2017 Patient encounter LUIS DANIEL PITTMANO [facility] Start: 09-10-2017 End: 09-10-2017 Patient encounter KRIS Aceves LAI [facility] Start: 09-10-2017 End: 09-10-2017 Patient encounter CLARA JAMA [facility] Start: 09-03-2017 End: 09-04-2017 Patient encounter Christian A Shekhar Facility:[facility] Start: 08-28-2017 Ambulatory [facility] Start: 08-13-2017 End: 08-14-2017 Patient encounter CLARA EVITA [facility] Start: 08-13-2017 End: 08-13-2017 Patient encounter MEREDITH BENITO [facility] Start: 08-13-2017 End: 08-13-2017 Patient encounter [facility] Start: 08-10-2017 End: 08-10-2017 Emergency department patient visit Luke Barbosa Facility:[facility] Start: 08-06-2017 End: 08-07-2017 Patient encounter Christian Ivan Facility:[facility] Start: 07-23-2017 End: 07-24-2017 Patient encounter Christian Ivan Facility:[facility] Start: 07-18-2017 End: 07-18-2017 Patient encounter CLARA JAMA [facility] Start: 07-09-2017 End: 07-10-2017 Patient encounter Christian Ivan Facility:[facility] Start: 06-25-2017 End: 06-26-2017 Patient encounter Christian [place]ib[place]aux [place] Facility:[facility] Start: 06-12-2017 End: 06-12-2017 Patient encounter Christian Ivan Facility:[facility] Start: 05-14-2017 End: 05-15-2017 Patient encounter Christian [place] Facility:[facility] Start: 05-01-2017 End: 05-02-2017 Patient encounter Eloisa Nguyen Facility:[facility] Start: 04-23-2017 End: 04-23-2017 Patient encounter Yasmin Evans Facility:[facility] Start: 04-22-2017 End: 04-22-2017 Emergency department patient visit Luke Ochoaer Facility:[facility] Start: 04-18-2017 End: 04-18-2017 Emergency department patient visit Luke Barbosa Facility:[facility] Start: 04-16-2017 End: 04-17-2017 Patient encounter Gamaliel Savage Facility:[facility] Start: 04-16-2017 End: 04-17-2017 Patient encounter Christian Ivan Facility:[facility] Start: 04-11-2017 End: 04-11-2017 Emergency department patient visit Nodr No Doctor Assigned Facility:[facility] Start: 03-26-2017 End: 03-27-2017 Patient encounter Luke Barbosa Facility:[facility] Start: 03-20-2017 End: 03-20-2017 Emergency department patient visit Nodr No Doctor Assigned Facility:[facility] Start: 03-01-2017 End: 03-01-2017 Emergency department patient visit Nodr No Doctor Assigned Facility:[facility] Procedures Date Procedure Procedure Detail Performing Clinician Start: 12-15-2024 US OB BPP W NON-STRESS Cuong Diana DO Work Phone: Start: 12-14-2024 Urnls dip stick/tabl et rgnt non-auto w/o micrscp Cuong Diana DO Work Phone: Start: 12-08-2024 US OB BPP W NON-STRESS [...] ion [Identifier] in Cervix by Cyto stain [facility] DO Work Phone: Start: 07-20-2024 AFP, SERUM, OPEN SPI NA BIFIDA Cuong Diana DO Work Phone: Start: 07-20-2024 Urnls dip stick/tabl et rgnt non-auto w/o micrscp Cuong Diana DO Work Phone: Start: 06-22-2024 ALL CBC WITH AUTO DIFF [facility] DO Work Phone: Start: 06-18-2024 End: 06-18-2024 [...] Urine culture SADAF Wyatt Work Phone: Start: 07-05-2023 CT of head without contrast SADAF Wyatt [...] CT of lumbar spine w ithout contrast FERMINZhao Wyatt Work Phone: Start: 12-18-2022 Plain chest [...] above: Performed By: #### T &S #### [place] [id number] Aerobic microbial culture FERMIN Wyatt Work Phone: Investigation of transfusion reaction SADAF Wyatt Work Phone: Plan of Treatment Date Care Activity Detail Author Start: 12-18-2032 DTaP,Tdap and Td Vaccines (10 - Td or Tdap) DTaP,Tdap and Td Vaccines (10 - Td or Tdap) [facility] Start: 05-10-2028 Screening for malign ant neoplasm of cervix [facility] Start: 09-11-2027 Screening for malign ant neoplasm of cervix Pap Smear [facility] Start: 11-16-2025 Adult BMI Screening Adult BMI Screen ing [facility] Start: 10-24-2025 Screening for malign ant neoplasm of cervix Pap Smear [facility] Start: 09-28-2025 Tobacco Screening Tobacco Screening [facility] Start: 08-27-2025 Adult BMI Screening Adult BMI Screen ing [facility] Start: 08-27-2025 Tobacco Screening Tobacco Screening [facility] Start: 02-15-2025 Influenza vaccination [facility] Start: 12-14-2024 End: 12-14-2024 Patient encounter procedure 12/14/2024 1:30 PM EDT Routine [facility] [address] [place] [id number] Cuong Ortiz, DO [address] [place] [address] [facility] Start: 12-07-2024 End: 12-07-2024 Patient encounter procedure 12/07/2024 1:00 PM EDT Routine [facility] [address] [place] [place] [phone] Cuong Ortiz, DO [address] [place] [address] [facility] Start: 11-30-2024 End: 11-30-2025 CULTURE, GROUP B STREP WITH SUSCEPTIBLITY CULTURE, GROUP B STREP WITH SUSCEPTIBLITY Lab Routine Third trimester ([facility]) Expected: 11/30/2024, Expires: 11/30/2025 [facility] Work Phone: Comment on above: Expected: 11/30/2024 , Expires: 11/30/2025 Start: 11-30-2024 End: 11-30-2024 Patient encounter procedure [facility] Comment on above: Arrived Start: 11-23-2024 End: 11-23-2024 Patient encounter procedure 11/23/2024 2:20 PM EDT Routine [facility] [address] [place] [address] Cuong Ortiz DO [address] [place] [address] [facility] Start: 11-10-2024 End: 11-10-2024 [...] for gestational age) Expected: 10/26/2024, Expires: 02/26/2025 [facility] Comment on above: Expected: 10/26/2024 , Expires: 02/26/2025 Start: 10-26-2024 End: 10-26-2024 Patient encounter procedure [facility] Comment on above: Arrived Start: 10-19-2024 End: 10-19-2024 Professional / ancillary services management 10/19/2024 11:30 AM EDT Ancillary Procedure [facility] [address] [place] [id number] [facility] Start: 10-12-2024 End: 02-11-2025 US for US OB follow up transabdominal approach Imaging Routine Nadia cisterna magna (CMS/HCC) Expected: 10/12/2024, Expires: 02/11/2025 [facility] Work Phone: Comment on above: Expected: 10/12/2024 , Expires: 02/11/2025 Start: 10-12-2024 End: 10-12-2024 Patient encounter procedure 10/12/2024 1:20 PM EDT Routine [facility] [address] [facility] [place] [address] Cuong Ortiz, DO [address] [place] [address] [facility] Start: 10-12-2024 End: 10-12-2024 Patient encounter procedure 10/12/2024 9:20 AM EDT Routine [facility] [address] [place] [phone] Cuong Ortiz, DO [address] [place] [address] Arrived [facility] Comment on above: Arrived Start: 09-24-2024 End: 09-24-2024 Patient encounter procedure 09/24/2024 9:45 AM EDT Appointment [facility] [address] [address] [place] [address] [facility] Start: 09-10-2024 End: 09-10-2024 Patient encounter procedure 09/10/2024 11:10 AM EDT Routine [facility] [address] [place] [phone] Cuong Ortiz, DO [address] [place] [address] [facility] Start: 08-27-2024 End: 08-27-2025 [...] 08/27/2024 1:00 PM EDT Appointment [facility] [address] [place] [address] [facility] Start: 08-13-2024 End: 08-13-2024 Patient encounter procedure 08/13/2024 11:30 AM EST Routine [facility] [address] [place] [address] Elena Fofana PA [address] [place], [place] [id number] [facility] Start: 08-13-2024 End: 08-13-2024 Professional / ancillary services management 08/13/2024 10:30 AM EST Ancillary Procedure [facility] [address] [place] [address] [facility] Start: 07-20-2024 End: [...] EST Routine [facility] [address] [place] [address] Cuong Ortiz, [address] [place] [address] [facility] Start: 06-22-2024 Bacteria identified in Urine by Culture Urine Culture [facility] Start: 06-22-2024 Urine culture [facility] Start: 06-18-2024 End: 06-18-2025 ABO/Rh ABO/Rh Lab Routine Missed menses , unspecified gestational age Expected: 06/18/2024 (Approximate), Expires: 06/18/2025 [facility] Comment on above: Expected: 06/18/2024 (Approximate), Expires: 06/18/2025 Start: 06-18-2024 End: 06-18-2025 Blood type and Indirect antibody screen panel - Blood Type and screen Lab Routine Missed menses , unspecified gestational age Expected: 06/18/2024 (Approximate), Expires: 06/18/2025 [facility] Work Phone: Comment on above: Expected: 06/18/2024 (Approximate), Expires: 06/18/2025 Start: 06-18-2024 End: 06-18-2025 Drugs of abuse panel - Urine by Screen method Rapid drug screen, urine Lab Routine , unspecified gestational age Encounter for supervision of normal first in first trimester Expected: 06/18/2024 (Approximate), Expires: 06/18/2025 [facility] Comment on above: Expected: 06/18/2024 (Approximate), Expires: 06/18/2025 Start: 02-16-2024 COVID-19 Vaccine ( season) COVID-19 Vaccine ( season) [facility] Start: 02-16-2024 Influenza vaccination N [facility] Start: 09-11-2023 Adult BMI Screening Adult BMI Screen ing [facility] Start: 09-11-2023 Tobacco Screening Tobacco Screening [facility] Start: 08-15-2023 End: 08-15-2023 Patient encounter procedure 08/15/2023 2:15 PM EST Appointment [facility] [address] [address] [place] [address] [facility] Start: 08-15-2023 End: 08-15-2023 Patient encounter procedure 08/15/2023 9:10 AM EST Routine [facility] [address] [place] [address] Cuong Ortiz, DO [address] [place] [address] [facility] Start: 07-18-2023 End: 07-18-2023 Patient encounter procedure 07/18/2023 8:00 AM EST Appointment [facility] [address] [address] [place] [address] [facility] Start: 07-03-2023 End: 07-03-2023 Telemedicine consultation with patient 07/03/2023 11:00 AM EST Telemedicine [facility] [address] [place] [address] Rosaura Renee, [facility] [address] [place] [address] [facility] Start: 05-02-2023 [facility] Start: 02-15-2023 COVID-19 Vaccine ( season) COVID-19 Vaccine ( season) [facility] Start: 02-15-2023 Influenza vaccination N [facility] Start: 12-19-2022 Bacteria identified in Urine by Culture Urine Culture [facility] Start: 12-19-2022 [facility] Start: 12-19-2022 CT of head without contrast CT head/brain wo con [facility] Start: 12-19-2022 CT Unspecified body region WO contrast [facility] Start: 12-19-2022 Consultation [facility] Start: 07-05-2023 Hospital admission [facility] Start: 12-19-2022 X-ray of left foot XR foot LT 2V [facility] Start: 12-19-2022 XR Foot - left 2 Views [facility] Start: 12-18-2022 Computed tomography of thoracic spine without contrast CT thoracic spine wo [facility] Start: 12-18-2022 CT cervical spine without contrast CT cervical spine wo [facility] Start: 12-18-2022 CT Cervical spine WO contrast [facility] Start: 12-18-2022 CT Lumbar spine WO contrast [facility] Start: 12-18-2022 CT of head without contrast CT head/brain wo [facility] Start: 12-18-2022 CT of lumbar spine without contrast CT lumbar spine wo [facility] Start: 12-18-2022 CT Thoracic spine WO contrast [facility] Start: 12-18-2022 CT Unspecified body region WO contrast [facility] Start: 12-18-2022 Pelvis X-ray XR pelvis 1-2V [facility] Start: 12-18-2022 Plain chest X-ray XR chest 1V portab le [facility] Start: 12-18-2022 X-ray of both knees XR knee BI 2V [facility] Start: 12-18-2022 XR Chest Single view [facility] Start: 12-18-2022 XR Knee - bilateral 2 Views [facility] Start: 12-18-2022 XR Pelvis 1 or 2 Views [facility] Start: 2022 Screening for malign ant neoplasm of cervix [facility] Start: 02-05-2022 [facility] Work Phone: Start: 2013 Screening for malign ant neoplasm of cervix Pap Smear [facility] Start: 2011 DTaP,Tdap and Td Vaccines (1 - Tdap) DTaP,Tdap and Td Vaccines (1 - Tdap) [facility] Start: 2010 Adult BMI Follow Up Plan Adult BMI Follow Up Plan [facility] Anaerobic microbial culture Anaerobic Culture [facility] Bacteria identified in Urine by Culture [facility] Bacteria identified in Urine by Culture Urine culture Microbiology Routine Missed menses Ordered: 06/18/2024 [facility] Comment on above: Ordered: 06/18/2024 CBC W Auto Different ial panel - Blood CBC and differential Lab Routine Missed menses , unspecified gestational age Ordered: 06/18/2024 [facility] Comment on above: Ordered: 06/18/2024 CHLAMYDIA TRACHOMATI S (GENITO/STI) CHLAMYDIA TRACHOMATIS (GENITO/STI) Lab Routine STD exposure Vaginal discharge Ordered: 09/10/2024 [facility] Comment on above: Ordered: 09/10/2024 Cytology Cervical or vaginal smear or scraping study Pap Smear Pathology and Cytology Routine Well woman exam with routine gynecological exam Ordered: 09/10/2024 [facility] Work Phone: Comment on above: Ordered: 09/10/2024 Hemoglobin A1c/Hemoglobin.total in Blood Hemoglobin A1c Lab Routine Missed menses , unspecified gestational age Ordered: 06/18/2024 [facility] Comment on above: Ordered: 06/18/2024 Hepatitis B virus surface Ag [Presence] in Serum or Plasma by Immunoassay Hepatitis B surface antigen Lab Routine Missed menses , unspecified gestational age Ordered: 06/18/2024 [facility] Comment on above: Ordered: 06/18/2024 Hepatitis C virus Ab [Presence] in Serum or Plasma by Immunoassay Hepatitis C antibody Lab Routine Missed menses , unspecified gestational age Ordered: 06/18/2024 [facility] Comment on above: Ordered: 06/18/2024 HIV-1/HIV-2 antigen/antibody combination immunoassay HIV-1 and HIV-2 antibodies Lab Routine Missed menses , unspecified gestational age Ordered: 06/18/2024 [facility] Comment on above: Ordered: 06/18/2024 Human papilloma viru s DNA [Presence] in Unspecified specimen by Probe with amplification HPV DNA probe, amplified Microbiology Routine Well woman exam with routine gynecological exam Ordered: 09/10/2024 [facility] Comment on above: Ordered: 09/10/2024 Neisseria gonorrhoea e DNA [Presence] in Unspecified specimen by RAINER with probe detection Neisseria gonorrhea DNA probe, direct Lab Routine STD exposure Vaginal discharge Ordered: 09/10/2024 [facility] Comment on above: Ordered: 09/10/2024 Patient Education [facility] Work Phone: Patient referral [facility] Work Phone: Reagin Ab [Presence] in Serum by RPR RPR Lab Routine Missed menses , unspecified gestational age Ordered: 06/18/2024 [facility] Comment on above: Ordered: 06/18/2024 Rubella antibody, IgG Rubella an tibody, IgG Lab Routine Missed menses , unspecified gestational age Ordered: 06/18/2024 [facility] Comment on above: Ordered: 06/18/2024 SURESWAB(R) ADVANCED VAGINITIS PLUS, TMA SURESWAB(R) ADVANCED VAGINITIS PLUS, TMA Pathology and Cytology Routine STD exposure Vaginal discharge Ordered: 09/10/2024 [facility] Comment on above: Ordered: 09/10/2024 Immunizations Immunization Date Immunization Notes Care Provider Fa hector 12-18-2022 tetanus toxoid, redu swati diphtheria toxoid, and acellular pertussis vaccine, adsorbed SADAF Wyatt Work Phone: [facility] 07-07-2022 diphtheria, tetanus toxoids and pertussis vaccine Ashwin Packer MD Work Phone: [facility] 11-07-2017 tetanus toxoid, redu swati diphtheria toxoid, and acellular pertussis vaccine, adsorbed Ashwin Packer MD Work Phone: [facility] 10-24-2017 tetanus toxoid, redu swati diphtheria toxoid, and acellular pertussis vaccine, adsorbed Ashwin Packer MD Work Phone: [facility] 05-19-2013 influenza, injectabl e, quadrivalent, preservative free Ashwin Packer MD Work Phone: [facility] 05-19-2013 influenza virus vacc ine, unspecified formulation Rosaura Renee [facility] Work Phone: [facility] 04-29-2012 influenza virus vacc ine, whole virus Ashwin Packer MD Work Phone: [facility] 10-18-2010 human papilloma viru s vaccine, quadrivalent Ashwin Packer MD Work Phone: [facility] 07-26-2010 human papilloma viru s vaccine, quadrivalent Ashwin Packer MD Work Phone: [facility] 12-24-2008 human papilloma viru s vaccine, quadrivalent Ashwin Packer MD Work Phone: [facility] 12-24-2008 meningococcal polysaccharide (groups A, C, Y and W-135) diphtheria toxoid conjugate vaccine (MCV4P) Ashwin Packer MD Work Phone: [facility] 12-09-1997 haemophilus influenz ae type b vaccine, PRP-T conjugate Ashwin Packer MD Work Phone: [facility] 12-09-1997 hepatitis B vaccine, pediatric or pediatric/adolescent dosage Ashwin Packer MD Work Phone: [facility] 10-08-1997 diphtheria, tetanus toxoids and acellular pertussis vaccine, unspecified formulation Ashwin Packer MD Work Phone: [facility] 10-08-1997 haemophilus influenz ae type b vaccine, PRP-T conjugate Ashwin Packer MD Work Phone: [facility] 10-08-1997 hepatitis B vaccine, pediatric or pediatric/adolescent dosage Ashwin Packer MD Work Phone: [facility] 10-08-1997 measles, mumps and rubella virus vaccine Ashwin Packer MD Work Phone: [facility] 10-08-1997 trivalent poliovirus vaccine, live, oral Ashwin Packer MD Work Phone: [facility] 09-18-1997 DTaP-Haemophilus influenzae type b conjugate vaccine Ashwin Pacekr MD Work Phone: [facility] 09-18-1997 poliovirus vaccine, unspecified formulation Ashwin Packer MD Work Phone: [facility] 03-10-1997 haemophilus influenz ae type b vaccine, PRP-T conjugate Ashwin Packer MD Work Phone: [facility] 03-10-1997 hepatitis B vaccine, pediatric or pediatric/adolescent dosage Ashwin Packer MD Work Phone: [facility] 08-23-1993 DTaP-Haemophilus influenzae type b conjugate vaccine Ashwin Packer MD Work Phone: [facility] 08-23-1993 measles, mumps and rubella virus vaccine Ashwin Packer MD Work Phone: [facility] 08-23-1993 trivalent poliovirus vaccine, live, oral Ashwin Packer MD Work Phone: [facility] 01-16-1993 haemophilus influenz ae type b vaccine, conjugate unspecified formulation Ashwin Packer MD Work Phone: [facility] 1992 DTaP-Haemophilus influenzae type b conjugate vaccine Ashwin Packer MD Work Phone: [facility] 1992 DTaP-Haemophilus influenzae type b conjugate vaccine Ashwin Packer MD Work Phone: [facility] 1992 poliovirus vaccine, unspecified formulation Ashwin Packer MD Work Phone: [facility] 1992 diphtheria, tetanus toxoids and pertussis vaccine Ashwin Packer MD Work Phone: [facility] 1992 haemophilus influenz ae type b vaccine, conjugate unspecified formulation Ashwin Packer MD Work Phone: [facility] 1992 trivalent poliovirus vaccine, live, oral Ashwin Packer MD Work Phone: [facility] 1992 DTaP-Haemophilus influenzae type b conjugate vaccine Ashwin Packer MD Work Phone: [facility] 1992 trivalent poliovirus vaccine, live, oral Ashwin Packer MD Work Phone: [facility] Payers Date Payer Category Payer Self-pay 2017 Medicaid 2017 Unknown 1992 Unknown [id number] 1992 Unknown [id number] 2.16.840.1.721884.3.579.2.278 1992 Unknown [id number] 2.16.840.1.919543.3.579.2.278 1992 Unknown [id number] 2.16.840.1.903363.3.579.2.278 1992 Unknown [id number] 2.16.840.1.201019.3.579.2.593 1992 Unknown [id number] 2.16.840.1.905793.3.579.2.593 1992 Unknown [id number] 2.16.840.1.781011.3.579.2.593 1992 Unknown [id number] 2.16.840.1.959437.3.579.2.593 1992 Unknown [id number] 2.16.840.1.127072.3.579.2.593 1992 Unknown [id number] 2.16.840.1.086724.3.579.2.593 1992 Unknown [id number] 2.16.840.1.886727.3.579.2.593 1992 Unknown [id number] 2.16.840.1.382895.3.579.2.593 1992 Unknown [id number] 2.16.840.1.560366.3.579.2.593 1992 Unknown [id number] 2.16.840.1.323692.3.579.2.593 1992 Unknown [id number] 2.16.840.1.392551.3.579.2.593 1992 Unknown [id number] 2.16.840.1.039346.3.579.2.593 1992 Unknown [id number] 2.16.840.1.503469.3.579.2.593 1992 Unknown [id number] 2.16.840.1.773862.3.579.2.593 1992 Unknown [id number] 2.16.840.1.870748.3.579.2.593 1992 Unknown [id number] 2.16.840.1.783511.3.579.2.593 1992 Unknown [id number] 2.16.840.1.087273.3.579.2.593 1992 Unknown [id number] 2.16.840.1.514863.3.579.2.593 1992 Unknown [id number] 2.16.840.1.882466.3.579.2.59 1992 Unknown [id number] 2.16.840.1.958968.3.579.2.593 1992 Unknown [id number] 2.16.840.1.218048.3.579.2.593 1992 Unknown [id number] 2.16.840.1.132299.3.579.2.593 1992 Unknown [id number] 2.16.840.1.860737.3.579.2.1285 1992 Unknown [id number] 2.16.840.1.893493.3.579.2.128 1992 Unknown [id number] 2.16.840.1.687118.3.579.2.1285 1992 Unknown [id number] 2.16.840.1.244560.3.579.2.128 1992 Unknown [id number] [id number]85 1990 Unknown [id number] 2.16.840.1.035990.3.579.2.1285 1990 Unknown [id number] 2.16.840.1.341645.3.579.2.1286 1990 Unknown [id number] 2.16.840.1.425016.3.579.2.1258 1990 Unknown [id number] 2.16.840.1.237095.3.579.2.1258 1992 Unknown [id number] 2.16.840.1.396597.3.579.2.1258 1992 Unknown [id number] 2.16.840.1.683129.3.579.2.1258 1992 Unknown [id number] 2.16.840.1.146602.3.579.2.1258 1992 Unknown [id number] 2.16.840.1.685649.3.579.2.1258 1992 Unknown [id number] 2.16.840.1.592430.3.579.2.1258 1992 Unknown [id number] 2.16.840.1.887422.3.579.2.1258 1992 Unknown [id number] 2.16.840.1.877597.3.579.2.1258 1992 Unknown [id number] 2.16.840.1.854203.3.579.2.1258 1992 Unknown [id number] 2.16.840.1.709152.3.579.2.1258 1992 Unknown [id number] 2.16.840.1.479542.3.579.2.1258 1992 Unknown [id number] 2.16.840.1.719150.3.579.2.1258 1992 Unknown [id number] 2.16.840.1.363160.3.579.2.1258 1990 Unknown [id number] 2.16.840.1.184789.3.579.2.1259 1957 Medicaid [id number] 1957 Medicaid [id number] Medicaid [id number] Unknown Regular Auto/Liability [id number] Unknown [id number] 2.16.840.1.074154.3.579.2.531 Social History Date Type Detail Facility Start: 02-05-2022 End: 05-09-2023 Tobacco smoking status NDIS Never smoked tobacco (finding) [facility] Start: 1990 Sex Assigned At Female [facility] Start: 12-19-2022 End: 12-19-2022 Tobacco smoking status NDIS Current some day smoker [facility] Start: 03-28-2022 End: 02-11-2023 Tobacco smoking status NDIS Ex-smoker (finding) [facility] Start: 07-18-2023 End: 11-23-2024 Alcohol intake Lifetime non-drinker (finding) [facility] Start: 05-09-2023 End: 12-10-2024 [address] of [address] [facility] Start: 05-09-2023 End: 12-10-2024 Tobacco use panel [facility] Start: 03-11-2023 [facility] Start: 1990 Sex Assigned At Not on file P [facility] Start: 01-20-2015 End: 06-24-2024 Sex Female (finding) [facility] History of tobacco use Current smoker [facility] History of tobacco use Tobacco U se Types Packs/Day Years Used Date Smoking Tobacco: Former Vaping/E-cigarettes Smokeless Tobacco: Never [facility] Start: 03-28-2022 End: 08-27-2024 Tobacco use and exposure Smokeless tobacco non-user [facility] Start: 06-26-2023 End: 11-16-2024 Alcohol intake Current non-drinker of alcohol (finding) [facility] Frequency of Alcohol Consumption Never [facility] Goals Date Patient Goal Desired Activity /State Personal health goal Functional Status Date Assessment Result Facility 12-19-2022 Functional status Patient at Baseline [facility] Work Phone: Mental Status Date Assessment Result Facility 12-19-2022 Cognitive function Cognitive Sta tus Patient at Baseline [facility] Work Phone: Clinical Notes 11-13-2021 to 12-14-2024 Adela De Souza, TAX MAP TECHNICIAN - 12/14/2024 10:00 AM EDTSusatunde Hernandezr, TAX MAP TECHNICIAN - 12/07/2024 1:00 PM EDTSusan Néstorelainar, TAX MAP TECHNICIAN - 11/30/2024 1:10 PM EDTMarisjessica Orourke, [place] - 11/23/2024 2:20 PM EDT Note Date & Type Note Facility 12-14-2024 History of Present illness Narrative Reason for [...] history of trisomy 13 09/30/2023 Third trimester ([facility]) 11/23/2024 34 weeks gestation of ([facility]) 11/23/2024 Resolved Ambulatory Problems Diagnosis Date Noted [...] nursing note reviewed. Exam conducted with a shipbuilding draftsperson present. Vitals: Estimated body mass index is 28.12 kg/m as calculated from the following: Height as of 10/24/22: 5' 6 . Weight as of this encounter: 174 lb 4 oz. BP: 118/82 Patient's last menstrual period was 03/24/2024. ASSESSMENT & PLAN ICD-10-CM 1. Third trimester ([facility]) Z34.93 POCT urinalysis dipstick manually resulted 2. 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 Exam conducted with a shipbuilding draftsperson present. Vitals: Estimated body mass index is 27.6 kg/m as calculated from the following: Height as of 10/24/22: 5' 6 . Weight as of 11/23/24: 171 lb. BP: Patient's last menstrual period was 03/24/2024. ASSESSMENT & PLAN ICD-10-CM 1. Third trimester ([facility]) Z34.93 2. 36 weeks gestation of ([facility]) Z3A.36 Patient presents today for a routine obstetrics appointment. Patient is currently 36w6d with a Estimated Date of Delivery: 12/29/24. Patient has a nuchal Documented by Airam Murphy LPN on behalf of: Cuong Ortiz DO documented in this encounter [facility] 11-30-2024 History of Present illness Narrative Reason [...] history of trisomy 13 09/30/2023 Third trimester ([facility]) 11/23/2024 34 weeks gestation of ([facility]) 11/23/2024 Resolved Ambulatory Problems Diagnosis Date Noted [...] nursing note reviewed. Exam conducted with a shipbuilding draftsperson present. Vitals: Estimated body mass index is 27.6 kg/m as calculated from the following: Height as of 10/24/22: 5' 6 . Weight as of 11/23/24: 171 lb. BP: Patient's last menstrual period was 03/24/2024. ASSESSMENT & PLAN ICD-10-CM 1. Third trimester ([facility]) Z34.93 POCT urinalysis dipstick manually resulted CULTURE, GROUP B STREP WITH SUSCEPTIBLITY 2. 35 weeks gestation of ([facility]) Z3A.35 Patient is doing well but has [...] Cuong Ortiz DO documented in this encounter [facility] 11-23-2024 History of Present illness Narrative Reason [...] deficit disorder) ADHD (attention deficit hyperactivity disorder) ([facility]) [...] nursing note reviewed. Exam conducted with a shipbuilding draftsperson present. Vitals: Estimated body mass index is [...] Cuong Ortiz DO documented in this encounter [facility] 11-16-2024 History of Present illness Narrative Headache/epigastric [...] History: Diagnosis Date ADHD Anxiety Bipolar disorder ([facility]) Club foot Depression alcohol syndrome PTSD [...] MALACHI MACDONALD MD documented in this encounter [facility] 11-10-2024 History of Present illness Narrative Reason [...] deficit disorder) ADHD (attention deficit hyperactivity disorder) ([facility]) Anxiety Bacterial vaginosis Bipolar disorder Club foot Depression ([facility]) Female infertility Heart problem Hormone imbalance HISTORY PAST MEDICAL HISTORY SOCIAL HISTORY Past Medical History: Diagnosis Date Abscess ADD (attention deficit disorder) ADHD (attention deficit hyperactivity disorder) ([facility]) Anxiety Bacterial vaginosis Bipolar disorder Club foot Depression ([facility]) [...] nursing note reviewed. Exam conducted with a shipbuilding draftsperson present. Vitals: Estimated body mass index is [...] Cuong Ortiz DO documented in this encounter [facility] 10-26-2024 History of Present illness Narrative Reason [...] deficit disorder) ADHD (attention deficit hyperactivity disorder) ([facility]) Anxiety Bacterial vaginosis Bipolar disorder Club foot Depression ([facility]) Female infertility Heart problem Hormone imbalance HISTORY PAST MEDICAL HISTORY SOCIAL HISTORY Past Medical History: Diagnosis Date Abscess ADD (attention deficit disorder) ADHD (attention deficit hyperactivity disorder) ([facility]) Anxiety Bacterial vaginosis Bipolar disorder Club foot Depression ([facility]) [...] up transabdominal approach 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 Patient to return to clinic in 2 weeks. Documented by Airam Murphy LPN... on behalf of: Cuong Ortiz DO documented in this encounter [facility] 10-12-2024 History of Present illness Narrative Reason [...] nursing note reviewed. Exam conducted with a shipbuilding draftsperson present. Vitals: Estimated body mass index is 27.16 kg/m as calculated from the following: Height as of 10/24/22: 5' 6 . Weight as of this encounter: 168 lb 4 oz. BP: 120/78 Patient's last menstrual period was 03/24/2024. ASSESSMENT & PLAN ICD-10-CM 1. Third trimester Z34.93 POCT urinalysis dipstick manually resulted 2. 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 Patient is currently 28w6d with a Estimated Date of Delivery: 12/29/24. Discussed patient recent [facility] visit. Patient to return to clinic in 2 weeks. Patient is to start NST/BPP/Growth at 32 weeks gestation. Patient has an appointment with [facility] at 32 or 33 weeks gestation. Growth scan to be done in office next week. Documented by Airam Murphy LPN on behalf of: Cuong Ortiz DO documented in this encounter [facility] 09-28-2024 History of Present illness Narrative Headache/epigastric [...] Yes Have you been seen here at [facility] in a previous ? Yes Recent ER visits or hospitalizations? No Bring blood sugar log or meter with you today? (Please bring them with you for every visit at [facility]) N/A Flu vaccine (Apr-August)? N/A Any [...] MALACHI MACDONALD MD documented in this encounter [facility] 09-10-2024 History of Present illness Narrative Reason [...] vaginosis Bipolar disorder (CMS/HCC) Club foot Depression ([facility]) [...] nursing note reviewed. Exam conducted with a shipbuilding draftsperson present. Vitals: Estimated body mass index is [...] Cuong Ortiz DO documented in this encounter [facility] 08-27-2024 History of Present illness Narrative Headache/epigastric pain/blurry vision/swelling? denies Cramping/contractions? denies Abnormal vaginal discharge? denies Spotting/vaginal bleeding? denies Loss or gush of fluid like your water may have broken? denies Do you have cats at home? no Do you change the litter box (reason: risk of toxoplasmosis)? Genetic testing done this here or other office? [place] low risk/female Have you been seen here at [facility] in a previous ? yes Recent ER visits or hospitalizations? no Bring blood sugar log or meter with you today? (Please bring them with you for every visit at [facility]) Flu vaccine (Apr-August)? no Any concerns that you would like me to mention to the provider today? Just worried about her baby Video Visit via Real-time Synchronous Audiovisual Provider Location: [facility]- MEDICINE AT [address] [address] Patient Location: [place] Patient Location Specialties Operator: None Video Visit Consent Statement: I [...] that there are some limitations compared to mvdb-zm-xdqb evaluations. We elected to proceed. 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 Status post genetic counseling on 07/03/2023 with [place] genetic counselor, Rosaura Renee History of prior [...] TESTS AND ULTRASOUND REPORTS: Referral records and [facility] chart were reviewed Pertinent Ultrasound [...] genetic counseling in the past both with [facility] and [place] genetic counselor , Rosaura Renee. Per Per [...] completion in 4 weeks neuro sonogram through [facility] to be scheduled Continue routine care with primary OB Follows with Neurology, appreciate input DISPOSITION: At this point the patient is in complete care of her enterprise engineer. Patient does have ultrasound and office visit scheduled with us. Thank you for allowing me to participate in the care of Zuleika Simone Yoselin. If there any questions please do not hesitate to contact us. Ashwin Packer MD Maternal- Medicine [facility] [address] [facility] 1st [place] [address] [facility], the CDC, and other organizations representing maternal and public health professionals recommend that , , and lactating people and those considering receive the COVID-19 vaccination. Vaccination is the best method to reduce maternal and complications of SARS-CoV-2 infection. This document was created with Inbox technology. Though I make every effort to review the dictation as it is transcribed, on occasion the spoken word can be misinterpreted by the technology leading to inappropriate words, phrases, or sentences. This note is addressed to the requesting provider as a consultation for clinical guidance. Specific medical abbreviations are occasionally used and those are generally approved by the [place]?Board of?Obstetrics and?Gynecology?as well as?Fernie lee abbreviations. The above plan of care was based solely on the diagnoses for which a consultation was requested. ?More frequent testing may be indicated based on her other medical/obstetrical conditions. The management of other or medical conditions is beyond the scope of requested consultation and will continue to be followed by the primary enterprise engineer or primary care provider. Note to patient: The 21st Century Cures Act makes medical notes like [...] practitioner. documented in this encounter [facility] 08-13-2024 History of Present illness Narrative Reason [...] deficit disorder) ADHD (attention deficit hyperactivity disorder) ([facility]) Anxiety Bacterial vaginosis Bipolar disorder ([facility]) Club foot Depression ([facility]) Female infertility Heart problem Hormone imbalance HISTORY PAST MEDICAL HISTORY SOCIAL HISTORY Past Medical History: Diagnosis Date Abscess ADD (attention deficit disorder) ADHD (attention deficit hyperactivity disorder) ([facility]) Anxiety Bacterial vaginosis Bipolar disorder ([facility]) Club foot Depression ([facility]) [...] of: FERMIN Lynch documented in this encounter [facility] 07-20-2024 History of Present illness [...] deficit disorder) ADHD (attention deficit hyperactivity disorder) ([facility]) Anxiety Bacterial vaginosis Bipolar disorder ([facility]) Club foot Depression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
[2024-12-16] MEDS: 0.9 % SODIUM CHLORIDE 1,000 ML 125 ML IV (05:57)
[2024-12-16 06:09] LABS: Hematocrit 33.7 % (36.0-48.0); Hemoglobin 11.0 g/dL (12.0-16.0); Mean Corpuscular HGB Conc 32.6 g/dL (29.9-35.2); Mean Corpuscular Hemoglobin 26.0 pg (26.7-34.0); Mean Corpuscular Volume 79.7 fL (81.0-99.0); Platelet Count 190 10^3/uL (150-450); Red Blood Count 4.23 10^6/uL (4.20-5.40); White Blood Count 8.5 10^3/uL (4.0-11.0)
[2024-12-16 06:19] LABS: Cannabinoid Screen Urine NEGATIVE (NEGATIVE); Methamphetamines Screen Urine NEGATIVE (NEGATIVE); Tricyclic Antidepressant Urine NEGATIVE (NEGATIVE)
[2024-12-16] MEDS: OXYTOCIN/0.9 % SODIUM CHLORIDE 10 UNITS/500 ML PLAST..BAG 6 UNIT IV (06:25)
[2024-12-16] MEDS: 0.9 % SODIUM CHLORIDE 1,000 ML 999 ML IV (09:25)
[2024-12-16] MEDS: ROPIVACAINE HCL/PF 400 MG/200 ML PREMIX 6 MG EPIDURAL (10:19)
[2024-12-16] MEDS: DIPHENHYDRAMINE HCL 50 MG/ML VIAL 25 MG IV (10:20)
[2024-12-16] MEDS: OXYTOCIN/0.9 % SODIUM CHLORIDE 20 UNITS/1,000 ML PLAST..BAG 125 UNIT IV (10:44)
--- NOTE | 2024-12-16 10:46 | PM.OBPRCVD ---
Procedure Intrapartal events: None Induction method: per pitocin protocol Delivery augmentation: rupture of membranes and pitocin Delivery monitor: external FHT and external uterine Route of delivery: Episiotomy Description: none Anesthesia type: Epidural Disposition: floor Infant Delivery date: 12/16/24 Gender: female presentation: vertex Placental delivery description: Spontaneous cord description: 3 Vessels and Nuchal Cord
--- NOTE | 2024-12-16 14:23 | PC.NURSE ---
Moderate gush of lochia with sm clots at this. Fundus firm with fundal massage. IV post- pitocin running wide open at this time.
[2024-12-16] MEDS: IBUPROFEN 600 MG TABLET PO ×2 (14:42→23:23)
[2024-12-16] MEDS: BENZOCAINE/MENTHOL 85 GRAM SPRAY BOTTLE 1 APPLIC TOPICAL (14:43)
[2024-12-16] MEDS: GLYCERIN/WITCH HAZEL PADS 1 PAD TOPICAL (14:43)
--- NOTE | 2024-12-16 14:51 | PC.NURSE ---
Pt eating lunch at this time.
--- NOTE | 2024-12-16 19:51 | W.PC.ACHO ---
Registration Status: ADM IN Primary Language: Preferred Language: Khmer Report given to Orestes DURAN at 1900. Care relinquished. Active Medications Generic Name Dose Route Start Last Admin Trade Name Bunny PRN Reason Stop Dose Admin Acetaminophen 650 mg 12/16/24 10:47 Acetaminophen 325 Mg Tablet PO Q6H PRN Mild Pain Al Hydroxide/Mg Hydroxide 2,400 mg 12/16/24 10:47 Magnesium Hydroxide 2,400 Mg/10 Ml Oral.Susp PO Q6H PRN Dyspepsia Benzocaine/Menthol 1 applic 12/16/24 10:47 12/16/24 14:43 Benzocaine/Menthol 85 Gram [place] Bottle TOPICAL 1 applic Q2H PRN Administration Pain Diphenhydramine HCl 25 mg 12/16/24 07:19 12/16/24 10:20 Diphenhydramine Hcl 50 Mg/Ml Vial IV 12/17/24 07:19 25 mg Q6H PRN Administration Itching Diphtheria/Pertussis/Tetanus Vacc 0.5 ml 12/18/24 09:00 Adacel Diph,Pertuss(Acell),Tet Vac/Pf 0.5 Ml Adult Syringe IM 12/18/24 09:01 .ONCE ONE Docusate Sodium 100 mg 12/17/24 09:00 Docusate Sodium 100 Mg Capsule PO BID LYNNE Ephedrine Sulfate 5 mg 12/16/24 07:19 Ephedrine Sulfate 50 Mg/Ml Vial IV 12/17/24 07:19 Q5M PRN Blood Pressure - Low Tranexamic Acid 1,000 mg/ 110 mls @ 440 mls/hr 12/16/24 05:33 Sodium Chloride IV 12/18/24 05:33 ONCE PRN Uterine Bleeding Sodium Chloride 1,000 mls @ 125 mls/hr 12/16/24 06:00 12/16/24 10:44 Sodium Chloride 0.9% 1,000 Ml IV Infused .Q8H LYNNE Infusion Oxytocin/Sodium Chloride 10 units in 500 mls @ 6 mls/hr 12/16/24 05:45 12/16/24 09:00 Pitocin 10 Unit/500 Ml-Ns IV 0 milliunit/min TITR LYNNE 0 mls/hr Protocol Infusion 2 MILLIUNIT/MIN Ropivacaine/Sodium Chloride 400 mg in 200 mls @ 6 mls/hr 12/16/24 07:30 12/16/24 10:40 Naropin 0.2% 400 Mg/200 Ml Bag EPIDURAL Infused Q24H LYNNE Infusion Ibuprofen 600 mg 12/16/24 10:47 12/16/24 14:42 Ibuprofen 600 Mg Tablet PO 600 mg Q6H PRN Administration Moderate Pain Lidocaine 5 ml 12/16/24 05:33 Lidocaine Viscous 2% 15 Ml Solution TOPICAL 12/18/24 05:35 ONCE PRN Pain Lidocaine 1 ml 12/16/24 05:33 Lidocaine Hcl 1% 200 Mg/20 Ml Mdv INJ 12/18/24 05:35 ONCE PRN Pain Measles/Mumps/Rubella Vaccine Live 0.5 ml 12/18/24 09:00 Measles,Mumps,Rubella Vacc/Pf 0.5 Ml Vial SQ 12/18/24 09:01 .ONCE ONE Methylergonovine Maleate 0.2 mg 12/16/24 05:33 Methylergonovine Maleate 0.2 Mg/Ml Ampule IM 12/18/24 05:33 ONCE PRN Uterine Contractility/Contract Methylergonovine Maleate 0.2 mg 12/16/24 05:33 Methylergonovine Maleate 0.2 Mg Tablet PO 12/18/24 05:33 Q4H PRN Uterine Contractility/Contract Misoprostol 600 mcg 12/16/24 05:33 Misoprostol 100 Mcg Tablet PO 12/18/24 05:33 ONCE PRN Uterine Bleeding Misoprostol 800 mcg 12/16/24 05:33 Misoprostol 100 Mcg Tablet SL 12/18/24 05:33 ONCE PRN Uterine Bleeding Misoprostol 1,000 mcg 12/16/24 05:33 Misoprostol 100 Mcg Tablet OR 12/18/24 05:33 ONCE PRN Uterine Bleeding Nalbuphine HCl 20 mg 12/16/24 05:33 Nalbuphine Hcl 10 Mg/Ml Ampule IM Q4H PRN Pain Scale 7-10 Nalbuphine HCl 10 mg 12/16/24 05:33 Nalbuphine Hcl 10 Mg/Ml Ampule IV Q3H PRN Pain Scale 4-6 Naloxone HCl 0.4 mg 12/16/24 07:19 Naloxone Hcl 0.4 Mg/Ml Vial IV 12/17/24 07:19 ONCE PRN Respiratory Distress Ondansetron HCl 4 mg 12/16/24 05:33 Ondansetron Pf 4 Mg/2 Ml Vial IV Q6H PRN Nausea And Vomiting Ondansetron HCl 4 mg 12/16/24 05:33 Ondansetron 4 Mg Rapdis Tablet SL Q6H PRN Nausea And Vomiting Oxytocin 10 unit 12/16/24 05:33 Oxytocin 10 Unit/Ml Vial IM 12/18/24 05:33 ONCE PRN Bleeding Senna 17.2 mg 12/16/24 20:00 Sennosides 8.6 Mg Tablet PO QHS PRN Constipation Simethicone 80 mg 12/16/24 10:47 Simethicone 80 Mg Tab.Chew PO QID PRN Abdominal Distention Temazepam 15 mg 12/16/24 10:47 Temazepam 15 Mg Capsule PO QHS PRN Sleep Witch Venessa/Glycerin 1 pad 12/16/24 10:47 12/16/24 14:43 Glycerin/Witch Venessa Pads TOPICAL 1 pad Q2H PRN Administration Pain Diet Category Date Time Status Regular Consistency Diet Diet 12/16/24 10:47 Active IV Insertion/Site Date of IV Line Insertion [20g 12/16/24 left Forearm] IV Insertion Time [20g left 05:50 Forearm] Neurology Patient orientation (short person,place,time,situation list) Respiratory Oxygen Delivery Method Room Air Oxygen Delivery Method Room Air Cardiology Heart Sounds Regular,Strong Heart Sounds Regular,Strong Renal Bladder Pattern Continent
[2024-12-17] MEDS: IBUPROFEN 600 MG TABLET PO ×3 (05:48→21:26)
[2024-12-17 06:24] LABS: Hematocrit 29.5 % (36.0-48.0); Hemoglobin 9.5 g/dL (12.0-16.0); Immature Granulocytes Abs Auto 0.04 10^3/uL (0.00-0.03); Immature Granulocytes Pct Auto 0.5 % (0.0-0.5); Lymphocytes Absolute Auto 1.9 10^3/uL (1.2-3.8); Mean Corpuscular HGB Conc 32.2 g/dL (29.9-35.2); Mean Corpuscular Hemoglobin 25.7 pg (26.7-34.0); Mean Corpuscular Volume 79.7 fL (81.0-99.0); Platelet Count 155 10^3/uL (150-450); Red Blood Count 3.70 10^6/uL (4.20-5.40); White Blood Count 8.4 10^3/uL (4.0-11.0)
[2024-12-17 08:40] VITALS: BP 134/77; PULSE 72; TEMP 36.8
[2024-12-17 08:43] VITALS: BP 134/77; PULSE 72
[2024-12-17] MEDS: DOCUSATE SODIUM 100 MG CAPSULE PO ×2 (08:50→21:26)
--- NOTE | 2024-12-17 10:26 | PM.OBPN ---
OB - PN: Subj Subjective Patient comments: no complaints [place] status: well [place] feeding status: expressed and bottle feeding Exam Constitutional Vital Signs, click to edit/add: Last Vital Signs Temp 98.4 F 12/16/24 16:30 Pulse 72 12/17/24 08:43 Resp 14 12/16/24 16:30 BP 134/77 12/17/24 08:43 O2 Del Method Room Air 12/16/24 23:32 Common normals: no apparent distress General appearance: cooperative Chest Common normals: inspection of breasts normal and palpation of breasts normal Respiratory Common normals: normal respiratory effort Bimanual exam- vagina & uterus: uterus non-tender Results Labs Labs: Short CBC 12/17/24 Range/Units 06:10 WBC 8.4 (4.0-11.0) 10^3/uL Hgb 9.5 L (12.0-16.0) g/dL Hct 29.5 L (36.0-48.0) % Plt Count 155 (150-450) 10^3/uL OB - PN: A/P Plan - Vaginal Delivery day: 1 Plan: routine care Time Spent with Patient Time: Total time spent is greater than 50% in coordination of care (as documented) at patient's floor/unit and/or counseling patient: Total time spent with greater than 50% in coordination of care (as documented) at patient's floor/unit and/or counseling patient: less than 15 minutes
[2024-12-17 16:04] VITALS: BP 131/68; PULSE 59
[2024-12-17 16:10] VITALS: BP 131/68; PULSE 59; TEMP 36.7
[2024-12-17] MEDS: GLYCERIN/WITCH HAZEL PADS 1 PAD TOPICAL (16:27)
[2024-12-18 00:32] VITALS: BP 127/77; PULSE 63; TEMP 36.6
[2024-12-18 08:20] VITALS: BP 133/71; PULSE 61; TEMP 36.3
[2024-12-18 08:23] VITALS: BP 133/71; PULSE 61
[2024-12-18] MEDS: DOCUSATE SODIUM 100 MG CAPSULE PO (08:25)
[2024-12-18] MEDS: IBUPROFEN 600 MG TABLET PO (08:25)
--- NOTE | 2024-12-18 10:46 | PM.OBPN ---
OB - PN: Subj Subjective Patient comments: no complaints [place] feeding status: breast and bottle feeding Exam Constitutional Vital Signs, click to edit/add: Last Vital Signs Temp 97.4 F L 12/18/24 08:20 Pulse 61 12/18/24 08:23 Resp 16 12/18/24 08:20 BP 133/71 12/18/24 08:23 O2 Del Method Room Air 12/18/24 00:32 Common normals: no apparent distress Chest Common normals: inspection of breasts normal and palpation of breasts normal Speculum exam - vagina: other (perineum intact) Bimanual exam- vagina & uterus: uterus non-tender Uterus palpation: other (firm and below umbilicus) Extremity Common normals: no calf tenderness and no pedal edema OB - PN: A/P Assessment and Plan (1) (spontaneous vaginal delivery): (2) : Plan pt doing well on PPD 2. had breast reduction surgery but is pumping and and supplementing well Plan - Vaginal Delivery day: 2 Plan: discharge home and follow up 6 weeks Time Spent with Patient Time: Total time spent is greater than 50% in coordination of care (as documented) at patient's floor/unit and/or counseling patient: Total time spent with greater than 50% in coordination of care (as documented) at patient's floor/unit and/or counseling patient: less than 15 minutes
--- NOTE | 2024-12-18 11:17 | PM.OBDS ---
DS: Providers Provider Date of admission: 12/16/24 05:24 Primary care physician: Ramon Avila MD Admitting clinician: Cuong Ortiz Attending physician on admission: Cuong Ortiz Attending physician on discharge: EMMANUEL AGOSTO Discharging clinician: EMMANUEL AGOSTO Anticipated date of discharge: 12/18/24 DS: Diagnosis Discharge Diagnosis (1) (spontaneous vaginal delivery): Onset Date: ~12/16/24 (2) : Plan d/c home on ppd 2 OB - DS: Summary Hospital Course Hospital Course: uncomplicated Complications complications: none Delivery method: spontaneous vaginal delivery Gender: female Discharge plan: home Status at Discharge Functional status at discharge: independent ambulation Overall status at discharge: patient is back to baseline Time Spent with Patient Time attestation: Total time spent providing and/or coordinating discharge services: Time spent: less than 30 minutes Exam Constitutional Vital Signs, click to edit/add: Last Vital Signs Temp 97.4 F L 12/18/24 08:20 Pulse 61 12/18/24 08:23 Resp 16 12/18/24 08:20 BP 133/71 12/18/24 08:23 O2 Del Method Room Air 12/18/24 00:32 Discharge Plan Discharge Disposition: Home, Self-Care Condition: Good Discharge Medications: Continued 2 tab PO DAILY Discontinued clindamycin HCl 150 mg capsule 300 mg PO Q6H 7 Days Qty: 56 0RF ondansetron 4 mg tablet,disintegrating 4 mg PO DAILY PRN (Reason: nausea and vomiting) Qty: 15 0RF Activity: resume usual activities as tolerated Diet: advance to your usual diet Print Language: Hungarian Forms: Vaginal Delivery - Discharge, Portal Instructions
== END 2024-12-18 12:55 | disposition home or self-care (01) | DRG 560 ==
PROVIDERS: Admitting Provider Obstetrics & Gynecology; PCP Family Medicine; Visit Provider Obstetrics & Gynecology
DX: O69.81X0 Labor and delivery complicated by cord around neck, without compression, not applicable or unspecified (principal); O26.893 Other specified pregnancy related conditions, third trimester; Z3A.38 38 weeks gestation of pregnancy; Z37.0 Single live birth
CPT/HCPCS: 36415; 59050; 59410; 76818; 80307; 85025; 85027; 86850; 86900; 86901; J1200; J2795; J3010

== ENCOUNTER 2025-03-05 13:56 | Emergency (ER) | payer MEDICAID, SELFPAY ==
[2025-03-05 14:08] VITALS: BP 124/93; PULSE 67; TEMP 37.1; O2SAT 98; BMI 25.0
--- OUTSIDE RECORDS SUMMARY | 2025-03-05 14:14 | XMS_ITS | CCD ---
Author Organization [facility] Care Team Providers Care Sleeve Machine Tender Name Role Phone CLARA JAMA Unavailable Unavail able SERENITY MALDONADO Unavailable Unavailable OKSANA CARO Unavailable UnaNAGA Bai Unavailable Unavailable BARBOSA, LUKE MALIK Unavailable Unavailable Eloisa Nguyen R Unavailable Unavailable Patrick, Eloisa R Unavailable Unavailable Barbosa, Luke Unavailable Unavailable Ragley, Christian A Unavailable Unavailable Barbosa, Luke Unavailable Unavailable Ragley, Christian A Unavailable Unavailable Barbosa, Luke Unavailable Unavailable Ragley, Christian A Unavailable Unavailable Barbosa, Luke Unavailable Unavailable Ragley, Christian A Unavailable Unavailable Barbosa, Ulke Unavailable Unavailable Ragley, Christian A Unavailable Unavailable Ragley, Christian A Unavailable Unavailable Barbosa, Luke Unavailable Unavailable Ragley, Christian A Unavailable Unavailable Barbosa, Luke Unavailable Unavailable Shekhar, Christian A Unavailable Unavailable Shekhar, Christian A Unavailable Unavailable Barbosa, Luke Unavailable Unavailable Barbosa, Luke Unavailable Unavailable Woo, Emiliano Unavailable Unavailable Woo, Emiliano Unavailable Unavailable Eloisa Nguyen R Unavailable Unavailable Barbosa, Luke Unavailable Unavailable Barbosa, Luke Unavailable Unavailable [place], Jag W Unavailable Unavailable [place], Jag W Unavailable Unavailable Ragley, Christian A Unavailable Unavailable Barbosa, Luke Unavailable Unavailable Ragley, Christian A Unavailable Unavailable Barbosa, Luke Unavailable [...] No Doctor Assigned, Nodr Unavailable Unavail able [place], Jag W Unavailable Unavailable [place], Jag W Unavailable Unavailable Barbosa, Luke Unavailable [...] Unavailable Unavailable Shekhar, Christian A Unavailable Unavailable Ragley, Christian A Unavailable Unavailable Barbosa, Luke Unavailable Unavailable Ragley, Christian A Unavailable Unavailable Barbosa, Luke Unavailable Unavailable Barbosa, Luke Unavailable Unavailable [place], Jag W Unavailable Unavailable Oscar, Jag W Unavailable Unavailable Ragley, Christian A Unavailable Unavailable Barbosa, Luke Unavailable Unavailable Gamaliel Savage Unavailable Unavailable Gamaliel Savage Unavailable Unavailable Barbosa, Luke Unavailable Unavailable Ragley, Christian A Unavailable Unavailable Barbosa, Luke Unavailable [...] Emergency Provider SADAF Wyatt Primary Care Provider [facility] Elle Whitney Emergency Provider DIANA ., DR ACOSTA Consulting Unavailable [facility] Primary Care Unavailable DIANA ., DR ACOSTA Attending Unavailable DIANA ., DR ACOSTA Admitting Unavailable DIANA ., DR ACOSTA Admitting Unavailable DIANA ., DR ACOSTA Attending Unavailable [facility] Primary Care Unavailable DIANA ., DR ACOSTA Consulting Unavailable ZIEBER, DR FELECIA Chadwick Consulting Unavailable [facility] Primary Care Unavailable KARASIK ., DR CAMACHO Admitting Unavailabl e KARASIK ., DR CAMACHO Attending Unavailabl e KARASIK ., DR CAMACHO Consulting Unavailabl e ALISIA, DR GAMALIEL Fischer Consulting Unavailable DIANA ., DR ACOSTA Consulting Unavailable ZIEBER, DR FELECIA Chadwick Consulting Unavailable WILLIAMS ., ELENA Admitting Unavailable WILLIAMS ., ELENA Attending Unavailable [facility] Primary Care Unavailable WILLIAMS ., ELENA Consulting Unavailable DIANA ., DR ACOSTA Admitting Unavailable DIANA ., DR ACOSTA Attending Unavailable [facility] Primary Care Unavailable DIANA ., DR ACOSTA Consulting Unavailable [facility] Primary Care Unavailable KARASIK ., DR CAMACHO Admitting Unavailabl e KARASIK ., DR CAMACHO Attending Unavailabl e KARASIK ., DR CAMACHO Consulting Unavailabl e DIANA ., DR ACOSTA Admitting Unavailable DIANA ., DR ACOSTA Attending Unavailable [facility] Primary Care Unavailable DIANA ., DR ACOSTA Consulting Unavailable ZIEBER, DR FELECIA Chadwick Consulting Unavailable DIANA ., DR ACOSTA Admitting Unavailable DIANA ., DR ACOSTA Attending Unavailable [facility] Primary Care Unavailable DIANA ., DR ACOSTA Consulting Unavailable ZIEBER, DR FELECIA Chadwick Consulting Unavailable PRATIMA, BRODIE Consulting Unavailable DIANA ., DR ACOSTA Consulting Unavailable [facility] Primary Care Unavailable DIANA ., DR ACOSTA Attending Unavailable DIAAN ., DR ACOSTA Admitting Unavailable ZIEBER, DR FELECIA Chadwick Consulting Unavailable DIANA ., DR ACOSTA Consulting Unavailable [facility] Primary Care Unavailable DIANA ., DR ACOSTA Attending Unavailable DIANA ., DR ACOSTA Admitting Unavailable DIANA ., DR ACOSTA Admitting Unavailable DIANA ., DR ACOSTA Attending Unavailable [facility] Primary Care Unavailable DIANA ., DR ACOSTA Consulting Unavailable ZIEBER, DR FELECIA Chadwick Consulting Unavailable DIANA ., DR ACOSTA Admitting Unavailable DIANA ., DR ACOSTA Attending Unavailable [facility] Primary Care Unavailable WEST, DR GAMALIEL Fischer Consulting Unavailable DIANA ., DR ACOSTA Consulting Unavailable [facility] Primary Care Unavailable KARASIK ., DR CAMACHO Admitting Unavailabl e KARASIK ., DR CAMACHO Attending Unavailabl e KARASIK ., DR CAMACHO Consulting Unavailabl e DIANA ., DR ACOSTA Consulting Unavailable ZIEBER, DR FELECIA Chadwick Consulting Unavailable DIANA ., DR ACOSTA Admitting Unavailable DIANA ., DR ACOSTA Attending Unavailable [facility] Primary Care Unavailable WEST, DR GAMALIEL Fischer Consulting Unavailable DIANA ., DR ACOSTA Consulting Unavailable DIANA ., DR ACOSTA Admitting Unavailable DIANA ., DR ACOSTA Attending Unavailable [facility] Primary Care Unavailable DIANA ., DR ACOSTA Consulting Unavailable DIANA ., DR ACOSTA Admitting Unavailable DIANA ., DR ACOSTA Attending Unavailable [facility] Primary Care Unavailable DIANA ., DR ACOSTA Consulting Unavailable ZIEBER, DR FELECIA Chadwick Consulting Unavailable DIANA ., DR ACOSTA Admitting Unavailable DIANA ., DR ACOSTA Attending Unavailable [facility] Primary Care Unavailable DIANA ., DR ACOSTA Consulting Unavailable DIANA ., DR ACOSTA Admitting Unavailable DIANA ., DR ACOSTA Attending Unavailable [facility] Primary Care Unavailable DIANA ., DR ACOSTA Consulting Unavailable [facility] Primary Care Unavailable DIANA ., DR ACOSTA Attending Unavailable DIANA ., DR ACOSTA Admitting Unavailable DIANA ., DR ACOSTA Admitting Unavailable DIANA ., DR ACOSTA Attending Unavailable [facility] Primary Care Unavailable DIANA ., DR ACOSTA Admitting Unavailable DIANA ., DR ACOSTA Attending Unavailable [facility] Primary Care Unavailable KARASIK ., DR CAMACHO Consulting Unavailabl e DIANA ., DR ACOSTA Consulting Unavailable DIANA ., DR ACOSTA Procedure Practitioner Unavail able ORLANDO PRASAD Consulting Unavailable JACQUES FLETCHER Consulting Unavailable DIANA ., DR ACOSTA Admitting Unavailable DIANA ., DR ACOSTA Attending Unavailable [facility] Primary Care Unavailable KARASIK ., DR CAMACHO Consulting Unavailabl e ZIEBER, DR FELECIA Chadwick Consulting Unavailable SADAF Wyatt Primary Care Provider MD Farhan Jean Attending Provider [phone] DO Ryan Poe Emergency Provider DO Arden Orozco Admit Provider DO Arden Orozco Attending Provider [facility] Igor Other Provider UnavailMD Juan Edwards Other Provider HAROON Monique Other Provider MD Jacques Valerio Other Provider [phone] MD Edith Urias Other Provider SADAF Wyatt Primary Care Provider Meagan, [facility] Elle Whitney Emergency Provider [phone] BRANNON Valencia Emergency Provider Andie Johnson Unavailable Unallocated, [place] Provider Primary Care Provider Unallocated Beatrice CHAUs Provider Primary Care Provi kwabena Andie Wyatt PA-C Primary Care Provider Diana DO, Cuong Attending Provider [phone] Andie Wyatt Primary Care Unavailable Diana, Cuong Attending Unavailable Diana, Cuong Admitting Unavailable Andie Wyatt PA-C Primary Care Provider [phone] DIANA, CUONG R Referring Unavailable ANDIE WYATT Primary Care Unavailable AMELIA ASHWIN Attending Unavailable ANDIE WYATT Referring Unavailable ANDIE WYATT Primary Care Unavailable Andie Wyatt PA-C Primary Care Provider [phone] AMAURI RODRIGUEZ Referring Unavailable ANDIE WYATT Primary [...] Propensity to adverse reactions (disorder) 12-01-19 18 [facility] Repository (2 sources) Mold spore; Translations: [MOLD SPORES] Propensity to adverse reactions (disorder) 12-01-19 18 [facility] Repository (20 sources) Penicillins; Translations: [PENICILLINS] Propensity to adverse reactions to drug (disorder) 11-27-19 14 [facility] Repository (18 sources) Sulfonamides (Antibiotic); Translations: [SULFA (SULFONAMIDE ANTIBIOTICS)] Propensity to adverse reactions to drug (disorder) 12-01-19 18 [facility] Repository (1 source) Bee/Wasp/Ant venom; Translations: [Bee Stings] Propensity to adverse reactions to drug (disorder) [facility] Repository (6 sources) mold extract; Translations: [Mold] Drug Allergy 08-13-19 25 [facility] Repository (1 source) Sulfonamides (Antibiotic); Translations: [sulfa drugs] Propensity to adverse reactions to drug (disorder) [facility] Repository (20 sources) bee venom; Translations: [BEE VENOM] Propensity to adverse reactions to drug (disorder) 07-18-19 18 [facility] Repository (1 source) OTHER; Translations: [OTHER] Propensity to adverse reactions to food (disorder) 11-22-19 18 [facility] Repository (20 sources) MOLDS & SMUTS; Translations: [MOLDS & SMUTS] Propensity to adverse reactions to drug (disorder) 07-18-19 18 [facility] Repository (20 sources) SULFA ANTIBIOTICS; Translations: [SULFA ANTIBIOTICS] Propensity to adverse reactions to drug (disorder) 07-18-19 18 [facility] Repository (1 source) Sulfonamides (Antibiotic) Drug allergy (disorder) 11-27-19 14 [facility] Repository (2 sources) Penicillin; Translations: [penicillin V] Drug Allergy 03-15-19 anaphylaxis [facility] (2 sources) Sulfacetamide; Translations: [sulfacetamide] Drug Allergy 03-15-19 anaphylaxis [facility] (9 sources) Bee Venom Protein (Honey Bee); Translations: [BEE VENOM PROTEIN (HONEY BEE)] Propensity to adverse reactions to drug 03-27-20 [facility] (20 sources) Bee pollen Allergy to substance 08-13-19 [facility] (20 sources) Penicillin G Drug Allergy 08-13-19 [facility] (20 sources) Sulfamethoxazole Allergy to substance 08-13-19 [facility] Medications Current Medications Medication Drug Class(es) Dates [...] 20, 2022 1:00am December 18, 2022 11:25pm [id number] 0.3 ml EPINEPHrine 1 mg/ml auto-injector (18 sources) alpha-Adrenergic Agonist, beta-Adrenergic Agonist, Catecholamine Start: 08-29-2024 EPINEPHrine (Epipen) 0.3 MG/0.3ML injection syringe 08/29/2024 Active fluconazole 10 mg/ml oral suspension (7 sources) Azole Antifungal Start: 08-06-2022 fluconazole (DIFLUCAN) 10 mg/mL suspension 08/06/2022 Active fluticasone propionate 0.05 mg/actuat metered dose nasal spray (18 sources) Corticosteroid Start: 06-04-2024 Flonase Allergy Relief 50 MCG/ACT nasal spray 1 (one) time each day at the same time 06/04/2024 Active loratadine 10 mg oral tablet (18 sources) Start: 06-04-2024 loratadine (Claritin) 10 MG [...] mouth in the morning. 0 02/27/2023 Active [place] (No Known Home Meds) (2 sources) Start: 12-18-2022 [place] (No Known Home Meds) Active December 18, [...] (-1 ORAL) Take by mouth. 0 Active Eptoeefc-Syl-Ol-FA (, w/Iron & FA,) 27-0.8 MG tablet (3 sources) Multivi t-Min-Fe-FA (, w/Iron & FA,) 27-0.8 MG tablet 1 (one) time each day at the same time. 0 Active DT-Lks-TQ-[place]-3 ( Gummies/DHA & FA) 0.4-32.5 MG chewable tablet (3 sources) Start: 07-09-2023 End: 08-08-2023 CV-Jsw-XV-[place]-3 ( Gummies/DHA & FA) 0.4-32.5 MG chewable tablet Indications: 18 weeks gestation of Chew 0.4 mg in the morning. 30 tablet 11 07/09/2023 08/08/2023 Active Vit-Fe Fumarate-FA (PNV Plus Multivitamin) 27-1 MG tablet (20 sources) Start: 04-29-2024 take 1 tablet by mouth once daily Vit-Fe Fumarate-FA (PNV Plus Multivitamin) 27-1 MG tablet Indications: First trimester ([facility]) Take 1 tablet by mouth Daily [...] conditions] Onset: 09-28-2024 Episodic Residual codes; unclassified (20 sources) Gestation period, 34 weeks; Translations: [34 [...] low weight; and growth retardation (2 sources) Ebzml-mke-ualoj baby; Translations: [ small for gestational age, unspecified weight] 10-26-2024 Episodic Skin and subcutaneous tissue infections (9 sources) Abscess of chest wall; Translations: [Cutaneous abscess of chest wall] 02-05-2022 Episodic Unclassified (1 source) 39 weeks gestation of ; Translations: [39 weeks gestation of ] Onset: 12-02-2017 Unclassified (2 sources) anomaly Onset: 11-30-2017 Unclassified (3 sources) 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 NA/UNS; Translations: [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 NA/UNS] Onset: 07-05-2022 Unclassified (20 [...] 09-30-2023 09-30-2023 Episodic Unclassified (1 source) M/C [facility] 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 Basophils/100 WBC (Bld) 0.5 % 0.2 - 2.0 % [facility] Eosinophils/100 WBC (Bld) 2 % 0.9 - 7.0 % [facility] Erythrocyte distribution width (RBC) [Ratio] 14.7 % 11.0 - 15.0 % [facility] Hematocrit (Bld) [Volume fraction] 29.5 % Low 36.0 - 48.0 % [facility] Hemoglobin (Bld) [Mass/Vol] 9.5 g/dL Low 12.0 - 16.0 g/dL [facility] IMMATURE GRANULOCYTES ABS AUTO 0.04 High [facility] Immature granulocytes/100 WBC (Bld) 0.5 % 0.0 - 0.5 % [facility] Interpretation and review of laboratory results Abnormal [facility] LYMPHOCYTES ABSOLUTE AUTO 1.9 [facility] Lymphocytes/100 WBC (Bld) 23.1 % 20.5 - 60.0 % [facility] MCH (RBC) [Entitic mass] 25.7 pg Low 26.7 - 34.0 pg [facility] MCHC (RBC) [Mass/Vol] 32.2 g/dL 29.9 - 35.2 g/dL [facility] MCV (RBC) [Entitic vol] 79.7 fL Low 81.0 - 99.0 fL [facility] MONOCYTES ABSOLUTE AUTO 0.7 [facility] Monocytes/100 WBC (Bld) 7.8 % 1.7 - 12.0 % [facility] NEUTROPHILS ABSOLUTE AUTO 5.5 [facility] Neutrophils/100 WBC (Bld) 66.1 % 43.0 - 75.0 % [facility] Platelet mean volume (Bld) [Entitic vol] 9.6 fL 9.5 - 13.5 fL [facility] EO # 0.2 [facility] PLT 155 [facility] TB RBC 3.7 Low [facility] WBC 8.4 [facility] HMHP CBC WITH PLATELET NO DI FFERENTIALon 12-16-2024 Erythrocyte distribution width (RBC) [Ratio] 14.7 % 11.0 - 15.0 % [facility] Hematocrit (Bld) [Volume fraction] 33.7 % Low 36.0 - 48.0 % [facility] Hemoglobin (Bld) [Mass/Vol] 11 g/dL Low 12.0 - 16.0 g/dL [facility] Interpretation and review of laboratory results Abnormal [facility] MCH (RBC) [Entitic mass] 26 pg Low 26.7 - 34.0 pg [facility] MCHC (RBC) [Mass/Vol] 32.6 g/dL 29.9 - 35.2 g/dL [facility] MCV (RBC) [Entitic vol] 79.7 fL Low 81.0 - 99.0 fL [facility] Platelet mean volume (Bld) [Entitic vol] 9.5 fL 9.5 - 13.5 fL [facility] TB PLT 190 [facility] RBC 4.23 [facility] WBC 8.5 [facility] US OB BPP W NON-STRESS on 12-15-2024 [place] [address] Ultrasound Report Signed Patient: ZULEIKA WYATT MR#: [id number] : 1990 Acct:[id number] Age/Sex: 34 / F ADM Date: 12/15/24 Loc: US Attending Dr: Cuong Ortiz D.O. Ordering Physician: Cuong Ortiz D.O. Date of Service: 12/15/24 Procedure(s): US OB BPP w non-stress Accession Number(s): [id number] cc: Cuong Ortiz D.O.; Ramon Avila M.D. [facility] [place] [id number] Patient Name: ZULEIKA WYATT MRN: [facility]:[id number] date: 1990 Sex: F Assigned Patient Location: Current Patient Location: Accession/Order Number: [id number] Exam Date: 12/15/2024 11:14 Report Date: 12/15/2024 [...] Mahan M.D. 12/15/2024 11:15 AM Dictation Location: [place] [address] Electronically authenticated by: [id number] Y Date: 12/15/2024 11:15 Dictated By: Adela Mahan M.D. Signed By: 12/15/24 1118 DD/ TD/TT: Geographic Information Scientist: [facility] Radiology, Radiologi MD ivelisse - 12/15/2024 [place] [address] Ultrasound Report Signed Patient: ZULEIKA WYATT MR#: [id number] : 1990 Acct:[id number] Age/Sex: 34 / F ADM Date: 12/15/24 Loc: US Attending Dr: Cuong Ortiz D.O. Ordering Physician: Cuong Ortiz D.O. Date of Service: 12/15/24 Procedure(s): US OB BPP w non-stress Accession Number(s): [id number] cc: Cuong Ortiz D.O.; Ramon Avila M.D. [place] [id number] Patient Name: ZULEIKA WYATT MRN: [id number] date: 1990 Sex: F Assigned Patient Location: US Current Patient Location: Accession/Order Number: [id number] Exam Date: 12/15/2024 11:14 Report Date: 12/15/2024 [...] cm. This is normal. Total score: 8/8 US/ OB BPP w non-stress IMPRESSION: NORMAL BIOPHYSICAL PROFILE Impression dictated by: Adela Mahan M.D. 12/15/2024 11:15 AM Dictation Location: [place] [address] Electronically authenticated by: [id number] Y Date: 12/15/2024 11:15 Dictated By: Adela Mahan M.D. Signed By: 12/15/24 1118 DD/ 14 TD/TT: Geographic Information Scientist: [facility] Radiology Study observation (narrative) [facility] OB BPP W NON-STRESS Ordered By: Radiologist Radiology on 12-15-2024 [facility] Work Phone: Urinalysis macro (dipstick) panel (U)on 12-14-2024 Bilirubin, UA Negative Negative - 4(70) +++ mg/dL [facility] Blood, UA Negative Negative - 50 Rakesh/mcL [facility] Clarity, UA Clear [facility] Color, UA Yellow [facility] Glucose, UA Negative Negative - 1999(110) ++++ mg/dL [facility] Interpretation and review of laboratory results Abnormal [facility] Ketones, UA Negative Negative - 160(16) ++++ mg/dL [facility] Leukocytes, UA Trace Negative - 500+++ Matti/mcL [facility] Nitrite, UA Negative Negative - Positive [facility] pH, UA 6.5 5 - 9 [facility] Protein, UA Negative Negative - 1999(20) ++++ mg/dL [facility] Spec Grav, UA 1.015 1 - 1.03 [facility] Urobilinogen, UA 0.2 0.2 - 12 mg/dL [facility] US OB BPP W NON-STRESS on 12-08-2024 [place] [address] Ultrasound Report Signed Patient: ZULEIKA WYATT MR#: [id number] : 1990 Acct:[id number] Age/Sex: 34 / F ADM Date: 12/08/24 Loc: US Attending Dr: Cuong Ortiz D.O. Ordering Physician: Cunog Ortiz D.O. Date of Service: 12/08/24 Procedure(s): US OB BPP w non-stress Accession Number(s): [id number] cc: Cuong Ortiz D.O.; Ramon Avila M.D. [place] [address] Patient Name: ZULEIKA WYATT MRN: [id number] date: 1990 Sex: F Assigned Patient Location: [facility] Current Patient Location: [facility] Accession/Order Number: [id number] Exam Date: 12/08/2024 11:48 Report Date: 12/08/2024 [...] Mahan M.D. 12/08/2024 11:51 AM Dictation Location: [place] [address] Electronically authenticated by: [id number] Y Date: 12/08/2024 11:51 Dictated By: Adela Mahan M.D. Signed By: 12/08/24 1154 DD/ 1151 TD/TT: Geographic Information Scientist: PAT RadiologyRosendaogtoi oviedo MD - 12/08/2024 [place] [address] Ultrasound Report Signed Patient: ZULEIKA WYATT MR#: [id number] : 1990 Acct:[id number] Age/Sex: 34 / F ADM Date: 12/08/24 Loc: US Attending Dr: Cuong Ortiz D.O. Ordering Physician: Cuong Ortiz D.O. Date of Service: 12/08/24 Procedure(s): US OB BPP w non-stress Accession Number(s): [id number] cc: Cuong Ortiz D.O.; Ramon Avila M.D. [facility] [place] [id number] Patient Name: ZULEIKA WYATT MRN: [facility]:[id number] date: 1990 Sex: F Assigned Patient Location: [facility] Current Patient Location: [facility] Accession/Order Number: [id number] Exam Date: 12/08/2024 11:48 Report Date: 12/08/2024 [...] Mahan M.D. 12/08/2024 11:51 AM Dictation Location: [place] [address] Electronically authenticated by: [id number] Y Date: 12/08/2024 11:51 Dictated By: Adela Mahan M.D. Signed By: 12/08/24 1154 DD/ 1151 TD/TT: Geographic Information Scientist: [facility] Radiology Study observation (narrative) [facility] OB BPP W NON-STRESS Ordered By: Radiologist Radiology on 12-08-2024 [facility] Work Phone: No Panel InformationOrdered By: Radiologist Radiology on 12-01-2024 [facility] Work Phone: No Panel Informationon 12-01 Radiology Study observation (narrative) [facility] OB BPP W NON-STRESS on 12-01-2024 [place] [address] Ultrasound Report Signed Patient: ZULEIKA WYATT MR#: [id number] : 1990 Acct:[id number] Age/Sex: 34 / F ADM Date: 12/01/24 Loc: US Attending Dr: Cuong Ortiz D.O. Ordering Physician: Cuong Ortiz D.O. Date of Service: 12/01/24 Procedure(s): US OB BPP w non-stress Accession Number(s): [id number] cc: Cuong Ortiz D.O.; Ramon Avila M.D. [facility] [place] [address] Patient Name: ZULEIKA WYATT MRN: [id number] date: 1990 Sex: F Assigned Patient Location: US Current Patient Location: Accession/Order Number: [id number] Exam Date: 12/01/2024 11:04 Report Date: 12/01/2024 [...] Mahan M.D. 12/01/2024 11:12 AM Dictation Location: [place] [address] Electronically authenticated by: [id number] Y Date: 12/01/2024 11:12 Dictated By: Adela Mahan M.D. Signed By: 12/01/24 1115 DD/ 1112 TD/TT: Geographic Information Scientist: [facility] Radiology, Radiologi MD ivelisse - 12/01/2024 [place] [address] Ultrasound Report Signed Patient: ZULEIKA WYATT MR#: [id number] : 1990 Acct:[id number] Age/Sex: 34 / F ADM Date: 12/01/24 Loc: US Attending Dr: Cuong Ortiz D.O. Ordering Physician: Cuong Ortiz D.O. Date of Service: 12/01/24 Procedure(s): US OB BPP w non-stress Accession Number(s): [id number] cc: Cuong Ortiz D.O.; Ramon Avila M.D. [facility] [place] [id number] Patient Name: ZULEIKA WYATT MRN: [facility]:[id number] date: 1990 Sex: F Assigned Patient Location: US Current Patient Location: Accession/Order Number: [id number] Exam Date: 12/01/2024 11:04 Report Date: 12/01/2024 [...] Mahan M.D. 12/01/2024 11:12 AM Dictation Location: [place] [address] Electronically authenticated by: [id number] Y Date: 12/01/2024 11:12 Dictated By: Adela Mahan M.D. Signed By: 12/01/24 1115 DD/ 11 TD/TT: Geographic Information Scientist: [facility] OB GROWTHon 12-01-2024 [facility] [address] [place] [address] Ultrasound Report Signed Patient: ZULEIKA WYATT MR#: [id number] : 1990 Acct:[id number] Age/Sex: 34 / F ADM Date: 12/01/24 Loc: US Attending Dr: Cuong Ortiz D.O. Ordering Physician: Cuong Ortiz D.O. Date of Service: 12/01/24 Procedure(s): US OB growth Accession Number(s): [id number] cc: Cuong Ortiz D.O.; Ramon Avila M.D. [place] [id number] Patient Name: ZULEIKA WYATT MRN: [facility]:[id number] date: 1990 Sex: F Assigned Patient Location: [facility] Current Patient Location: Accession/Order Number: [id number] Exam Date: 12/01/2024 11:04 Report Date: 12/01/2024 [...] Mahan M.D. 12/01/2024 11:12 AM Dictation Location: [place] [address] Electronically authenticated by: [id number] Y Date: 12/01/2024 11:12 Dictated By: Adela Mahan M.D. Signed By: 12/01/24 1115 DD/ 1112 TD/TT: Geographic Information Scientist: [facility] Radiology Radiologtoi oviedo MD - 12/01/2024 [place] [address] Ultrasound Report Signed Patient: ZULEIKA WYATT MR#: [id number] : 1990 Acct:[id number] Age/Sex: 34 / F ADM Date: 12/01/24 Loc: US Attending Dr: Cuong Ortiz D.O. Ordering Physician: Cuong Ortiz D.O. Date of Service: 12/01/24 Procedure(s): US OB growth Accession Number(s): [id number] cc: Cuong Ortiz D.O.; Ramon Avila M.D. [facility] [place] [id number] Patient Name: ZULEIKA WYATT MRN: [facility]:[id number] date: 1990 Sex: F Assigned Patient Location: [facility] Current Patient Location: Accession/Order Number: [id number] Exam Date: 12/01/2024 11:04 Report Date: 12/01/2024 [...] Mahan M.D. 12/01/2024 11:12 AM Dictation Location: [place] [address] Electronically authenticated by: [id number] Y Date: 12/01/2024 11:12 Dictated By: Adela Mahan M.D. Signed By: 12/01/24 1115 DD/ 1112 TD/TT: Geographic Information Scientist: [facility] Urinalysis macro (dipstick) panel (U)on 11-30-2024 Bilirubin, UA Negative Negative - 4(70) +++ mg/dL [facility] Blood, UA Negative Negative - 50 Rakesh/mcL [facility] Clarity, UA Clear [facility] Color, UA Yellow [facility] Glucose, UA Negative Negative - 2000(110) ++++ mg/dL [facility] Interpretation and review of laboratory results Abnormal [facility] Ketones, UA Negative Negative - 160(16) ++++ mg/dL [facility] Leukocytes, UA Positive Negative - 500+++ Matti/mcL [facility] Comment on above: Moderate Nitrite, UA Negative Negative - Positive [facility] pH, UA 7.5 5 - 9 [facility] Protein, UA Negative Negative - 2000(20) ++++ mg/dL [facility] Spec Grav, UA 1.02 1 - 1.03 [facility] Urobilinogen, UA 0.2 0.2 - 12 mg/dL [facility] OB BPP W NON-STRESS on 11-24-2024 [place] [address] Ultrasound Report Signed Patient: ZULEIKA WYATT MR#: [id number] : 1990 Acct:[id number] Age/Sex: 34 / F ADM Date: 11/24/24 Loc: [facility] 250-[address]: Cuong Ortiz D.O. Ordering Physician: Cuong Ortiz D.O. Date of Service: 11/24/24 Procedure(s): US OB BPP w non-stress Accession Number(s): [id number] cc: Cuong Ortiz D.O.; Ramon Avila M.D. [facility] [place] [id number] Patient Name: ZULEIKA WYATT MRN: [id number]:[id number] date: 1990 Sex: F Assigned Patient Location: [facility] Current Patient Location: [facility] Accession/Order Number: [id number] Exam Date: 11/24/2024 09:41 Report Date: 11/24/2024 [...] Mahan M.D. 11/24/2024 9:42 AM Dictation Location: [place] [address] Electronically authenticated by: [id number] Y Date: 11/24/2024 09:42 Dictated By: Adela Mahan M.D. Signed By: 11/24/2445 DD/ 1 TD/TT: Geographic Information Scientist: [facility] Radiology, Radiologi MD ivelisse - 11/24/2024 [place] [address] Ultrasound Report Signed Patient: ZULEIKA WYATT MR#: [id number] : 1990 Acct:[id number] Age/Sex: 34 / F ADM Date: 11/24/24 Loc: [facility] 250-[address]: Cuong Ortiz D.O. Ordering Physician: Cuong Ortiz D.O. Date of Service: 11/24/24 Procedure(s): US OB BPP w non-stress Accession Number(s): [id number] cc: Cuong Ortiz D.O.; Ramon Avila M.D. [facility] [place] [id number] Patient Name: ZULEIKA WYATT MRN: [facility]:[id number] date: 1990 Sex: F Assigned Patient Location: [facility] Current Patient Location: [facility] Accession/Order Number: [id number] Exam Date: 11/24/2024 09:41 Report Date: 11/24/2024 [...] 14.6 cm. This is normal. Total score: 01/22 US/US OB BPP w non-stress IMPRESSION: NORMAL BIOPHYSICAL PROFILE. Impression dictated by: Adela Mahan M.D. 11/24/2024 9:42 AM Dictation Location: [place] [address] Electronically authenticated by: [id number] Y Date: 11/24/2024 09:42 Dictated By: Adela Mahan M.D. Signed By: 11/24/2445 DD/ TD/TT: Geographic Information Scientist: [facility] Radiology Study observation (narrative) [facility] OB BPP W NON-STRESS Ordered By: Radiologist Radiology on 11-24-2024 [facility] Work Phone: Urinalysis macro (dipstick) panel (U)on 11-23-2024 Bilirubin, UA Negative Negative - 4(70) +++ mg/dL [facility] Blood, UA Negative Negative - 50 Rakesh/mcL [facility] Clarity, UA Clear [facility] Color, UA Yellow [facility] Glucose, UA Negative Negative - 1999(110) ++++ mg/dL [facility] Interpretation and review of laboratory results Abnormal [facility] Ketones, UA Positive Negative - 160(16) ++++ mg/dL [facility] Comment on above: trace Leukocytes, UA Positive Negative - 500+++ Matti/mcL [facility] Comment on above: small Nitrite, UA Negative Negative - Positive [facility] pH, UA 6.5 5 - 9 [facility] Protein, UA Trace Negative - 1999(20) ++++ mg/dL [facility] Spec Grav, UA 1.02 1 - 1.03 [facility] Urobilinogen, UA 1.0 0.2 - 12 mg/dL [facility] OB BPP W NON-STRESS on 11-17-2024 [place] [address] Ultrasound Report Signed Patient: ZULEIKA WYATT MR#: [id number] : 1990 Acct:[id number] Age/Sex: 34 / F ADM Date: 11/17/24 Loc: US Attending Dr: Cuong Ortiz D.O. Ordering Physician: Cuong rOtiz D.O. Date of Service: 11/17/24 Procedure(s): US OB BPP w non-stress Accession Number(s): [id number] cc: Cuong Ortiz D.O.; Ramon Avila M.D. [facility] [place] [address] Patient Name: ZULEIKA WYATT MRN: [id number] date: 1990 Sex: F Assigned Patient Location: [facility] Current Patient Location: Accession/Order Number: [id number] Exam Date: 11/17/2024 10:16 Report Date: 11/17/2024 [...] Mahan M.D. 11/17/2024 10:17 AM Dictation Location: [place] [address] Electronically authenticated by: [id number] Y Date: 11/17/2024 10:17 Dictated By: Adela Mahan M.D. Signed By: 11/17/24 1019 DD/ 1017 TD/TT: Geographic Information Scientist: [facility] Radiology, Radiologtoi oviedo MD - 11/17/2024 [place] [address] Ultrasound Report Signed Patient: ZULEIKA WYATT MR#: [id number] : 1990 Acct:[id number] Age/Sex: 34 / F ADM Date: 11/17/24 Loc: US Attending Dr: Cuong Ortiz D.O. Ordering Physician: Cuong Ortiz D.O. Date of Service: 11/17/24 Procedure(s): US OB BPP w non-stress Accession Number(s): [id number] cc: Cuong Ortiz D.O.; Ramon Avila M.D. [facility] [place] [id number] Patient Name: ZULEIKA WYATT MRN: [facility]:[id number] date: 1990 Sex: F Assigned Patient Location: [facility] Current Patient Location: Accession/Order Number: [id number] Exam Date: 11/17/2024 10:16 Report Date: 11/17/2024 [...] Mahan M.D. 11/17/2024 10:17 AM Dictation Location: [place] [address] Electronically authenticated by: [id number] Y Date: 11/17/2024 10:17 Dictated By: Adela Mahan M.D. Signed By: 11/17/24 1019 DD/ 1017 TD/TT: Geographic Information Scientist: [facility] Radiology Study observation (narrative) [facility] US OB BPP W NON-STRESS Ordered By: Radiologist Radiology on 11-17-2024 [facility] Work Phone: US OB BPP W NON-STRESS on 11-10-2024 [place] [address] Ultrasound Report Signed Patient: ZULEIKA WYATT MR#: [id number] : 1990 Acct:[id number] Age/Sex: 34 / F ADM Date: 11/10/24 Loc: US Attending Dr: Cuong Ortiz D.O. Ordering Physician: Cuong Ortiz D.O. Date of Service: 11/10/24 Procedure(s): US OB BPP w non-stress Accession Number(s): [id number] cc: Cuong Ortiz D.O.; Ramon Avila M.D. 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 The reported gestational age is 33 weeks 0 days. The heart rate [id number] beats per minute. FINDINGS: TONE: 1 or [...] Mahan M.D. 11/10/2024 10:08 AM Dictation Location: [place] [address] Electronically authenticated by: [id number] Y Date: 11/10/2024 10:08 Dictated By: Adela Mahan M.D. Signed By: 11/10/24 1011 DD/ 1008 TD/TT: Geographic Information Scientist: [facility] Radiology, Rosendaogtoi oviedo MD - 11/10/2024 [place] [address] Ultrasound Report Signed Patient: ZULEIKA WYATT MR#: [id number] : 1990 Acct:[id number] Age/Sex: 34 / F ADM Date: 11/10/24 Loc: US Attending Dr: Cuong Ortiz D.O. Ordering Physician: Cuong Ortiz D.O. Date of Service: 11/10/24 Procedure(s): US OB BPP w non-stress Accession Number(s): [id number] cc: Cuong Ortiz D.O.; Ramon Avila M.D. The [address] [address] Patient Name: ZULEIKA WYATT MRN: [facility]:[id number] date: 1990 Sex: F Assigned Patient Location: [facility] Current Patient Location: Accession/Order Number: [id number] Exam Date: 11/10/2024 10:07 Report Date: 11/10/2024 [...] Mahan M.D. 11/10/2024 10:08 AM Dictation Location: [place] [address] Electronically authenticated by: [id number] Y Date: 11/10/2024 10:08 Dictated By: Adela Mahan M.D. Signed By: 11/10/24 1011 DD/ 1008 TD/TT: Geographic Information Scientist: [facility] Radiology Study observation (narrative) [facility] OB BPP W NON-STRESS Ordered By: Radiologist Radiology on 11-10-2024 [facility] Work Phone: Urinalysis macro (dipstick) panel (U)on 11-10-2024 Bilirubin, UA Negative Negative - 4(70) +++ mg/dL [facility] Blood, UA Negative Negative - 50 Rakesh/mcL [facility] Clarity, UA Clear [facility] Color, UA Anna [facility] Glucose, UA Negative Negative - 2000(110) ++++ mg/dL [facility] Interpretation and review of laboratory results Abnormal [facility] Ketones, UA Negative Negative - 160(16) ++++ mg/dL [facility] Leukocytes, UA Trace Negative - 500+++ Matti/mcL [facility] Nitrite, UA Negative Negative - Positive [facility] pH, UA 6 5 - 9 [facility] Protein, UA Negative Negative - 2000(20) ++++ mg/dL [facility] Spec Grav, UA 1.025 1 - 1.[address] [facility] Urobilinogen, UA 0.2 0.2 - 12 mg/dL [facility] US OB BPP W NON-STRESS on 11-03-2024 [place] [address] Ultrasound Report Signed Patient: ZULEIKA WYATT MR#: [id number] : 1990 Acct:[id number] Age/Sex: 34 / F ADM Date: 11/03/24 Loc: US Attending Dr: Cuong Ortiz D.O. Ordering Physician: Cuong Ortiz D.O. Date of Service: 11/03/24 Procedure(s): US OB BPP w non-stress Accession Number(s): [id number] cc: Cuong Ortiz D.O.; Ramon Avila M.D. [place] [address] Patient Name: ZULEIKA WYATT MRN: [id number] date: 1990 Sex: F Assigned Patient Location: US Current Patient Location: Accession/Order Number: [id number] Exam Date: 11/03/2024 15:29 Report Date: 11/03/2024 15:31 At the request of: CUONG ORTIZ DO Procedure: US OB BPP w non-stress Ultrasound obstetrical biophysical profile HISTORY: [place] cisterna magna. In adequate breathing movement. Adequate gross body movement, tone and amniotic fluid volume. Total score 6 out of 8. Amniotic fluid index 11.1 cm within normal limits. heart rate 148 bpm. US/US OB BPP w non-stress IMPRESSION: Suboptimal biophysical profile. Score 6 out of 8. Impression dictated by: Aaron Boyce M.D. 11/03/2024 3:31 PM Dictation Location: [employer] Electronically authenticated by: [id number] Y Date: 11/03/2024 15:31 Dictated By: Aaron Boyce D.O. Signed By: 11/03/24 1533 DD/ 1531 TD/TT: Geographic Information Scientist: [facility] Radiology, Radiologi MD ivelisse - 11/03/2024 [place] [address] Ultrasound Report Signed Patient: ZULEIKA WYATT MR#: [id number] : 1990 Acct:[id number] Age/Sex: 34 / F ADM Date: 11/03/24 Loc: US Attending Dr: Cuong Ortiz D.O. Ordering Physician: Cuong Ortiz D.O. Date of Service: 11/03/24 Procedure(s): US OB BPP w non-stress Accession Number(s): [id number] cc: Cuong Ortiz D.O.; Ramon Avila M.D. [facility] [place] [id number] Patient Name: ZULEIKA WYATT MRN: [facility]:[id number] date: 1990 Sex: F Assigned Patient Location: Current Patient Location: Accession/Order Number: [id number] Exam Date: 11/03/2024 15:29 Report Date: 11/03/2024 15:31 At the request of: CUONG ORTIZ DO Procedure: US OB BPP w non-stress Ultrasound obstetrical biophysical profile HISTORY: [place] cisterna magna. In adequate breathing movement. Adequate gross body movement, tone and amniotic fluid volume. Total score 6 out of 8. Amniotic fluid index 11.1 cm within normal limits. heart rate 148 bpm. US/US OB BPP w non-stress IMPRESSION: Suboptimal biophysical profile. Score 6 out of 8. Impression dictated by: Aaron Boyce M.D. 11/03/2024 3:31 PM Dictation Location: [employer] Electronically authenticated by: [id number] Y Date: 11/03/2024 15:31 Dictated By: Aaron Boyce D.O. Signed By: 11/03/24 1533 DD/ 153 TD/TT: Geographic Information Scientist: [facility] Radiology Study observation (narrative) [facility] US OB BPP W NON-STRESS Ordered By: Radiologist Radiology on 11-03-2024 [facility] Work Phone: US OB GROWTHon 11-03-2024 [place] [address] Ultrasound Report Signed Patient: ZULEIKA WYATT MR#: [id number] : 1990 Acct:[id number] Age/Sex: 34 / F ADM Date: 11/03/24 Loc: US Attending Dr: Cuong Ortiz D.O. Ordering Physician: Cuong Ortiz D.O. Date of Service: 11/03/24 Procedure(s): US OB growth Accession Number(s): [id number] cc: Cuong Ortiz D.O.; Ramon Avila M.D. [place] [address] Patient Name: ZULEIKA WYATT MRN: [id number] date: 1990 Sex: F Assigned Patient Location: Current Patient Location: Accession/Order Number: [id number] Exam Date: 11/03/2024 16:30 Report Date: 11/03/2024 [...] Boyce M.D. 11/03/2024 4:34 PM Dictation Location: [place] [address] Electronically authenticated by: [id number] Y Date: 11/03/2024 16:34 Dictated By: Aaron Boyce D.O. Signed By: 11/03/24 1636 DD/ 1634 TD/TT: Geographic Information Scientist: [facility] Radiology, Radiologi MD ivelisse - 11/03/2024 [place] [address] Ultrasound Report Signed Patient: ZULEIKA WYATT MR#: [id number] : 1990 Acct:[id number] Age/Sex: 34 / F ADM Date: 11/03/24 Loc: US Attending Dr: Cuong Ortiz D.O. Ordering Physician: Cuong Ortiz D.O. Date of Service: 11/03/24 Procedure(s): US OB growth Accession Number(s): [id number] cc: Cuong Ortiz D.O.; Ramon Avila M.D. [facility] [place] [id number] Patient Name: ZULEIKA WYATT MRN: [facility]:[id number] date: 1990 Sex: F Assigned Patient Location: Current Patient Location: Accession/Order Number: [id number] Exam Date: 11/03/2024 16:30 Report Date: 11/03/2024 [...] Boyce M.D. 11/03/2024 4:34 PM Dictation Location: [place] [address] Electronically authenticated by: [id number] Y Date: 11/03/2024 16:34 Dictated By: Aaron Boyce D.O. Signed By: 11/03/241635 DD/ 33 TD/TT: Geographic Information Scientist: [facility] Radiology Study observation (narrative) [facility] US OB GROWTHOrdered By: Radi ologist Radiology on 11-03-2024 [facility] Work Phone: [facility] CMP (CMP) (FOR REMOTE FH C USE)on 10-26-2024 Albumin [Mass/Vol] 2.6 g/dL Low 3.4 - 5.0 g/dL [facility] ALBUMIN GLOBULIN RATIO 0.6 NO [facility] ALP [Catalytic activity/Vol] 86 U/L 46 - 116 U/L [facility] ALT [Catalytic activity/Vol] 14 U/L 14 - 59 U/L [facility] Anion gap [Moles/Vol] 12.1 mmol/L NO [facility] AST [Catalytic activity/Vol] 15 U/L 15 - 37 U/L [facility] Bilirubin [Mass/Vol] 0.8 mg/dL 0.2 - 1 .0 mg/dL [facility] Calcium [Mass/Vol] 8.8 mg/dL 8.5 - 10. 1 mg/dL [facility] Chloride [Moles/Vol] 102 mmol/L 98 - 10 7 mmol/L [facility] CO2 [Moles/Vol] 24 mmol/L 21.0 - 32.0 mmol/L [facility] Creatinine [Mass/Vol] 0.55 mg/dL 0.55 - 1.02 mg/dL [facility] GFR/1.73 sq M.predicted CKD-EPI (S/P/Bld) [Vol rate/Area] >60 >=60 mL/min/1.7 3m [address] [facility] Globulin (S) [Mass/Vol] 4.3 g/dL [facility] Glucose [Mass/Vol] 82 mg/dL 74 - 106 mg/dL [facility] Interpretation and review of laboratory results Abnormal [facility] Potassium [Moles/Vol] 4.1 mmol/L 3.5 - 5.1 mmol/L [facility] Protein [Mass/Vol] 6.9 g/dL 6.4 - 8.2 g/dL [facility] Sodium [Moles/Vol] 134 mmol/L Low 136 - 145 mmol/L [facility] TBH EGFR-NON AF THAI >60 >=60 mL/min/1.7 3m 2 [facility] Urea nitrogen [Mass/Vol] 6 mg/dL Low 7.0 - 18.0 mg/dL [facility] Urea nitrogen/Creatinine [Mass ratio] 10.9 mg/mg [facility] Urinalysis macro (dipstick) panel (U)on 10-26-2024 Bilirubin, UA Negative Negative - 4(70) +++ mg/dL [facility] Blood, UA Positive Negative - 50 Rakesh/mcL [facility] Comment on above: trace-intact Clarity, UA Clear [facility] Color, UA Yellow [facility] Glucose, UA Negative Negative - 1999(110) ++++ mg/dL [facility] Interpretation and review of laboratory results Abnormal [facility] Ketones, UA Negative Negative - 160(16) ++++ mg/dL [facility] Leukocytes, UA Positive Negative - 500+++ Matti/mcL [facility] Comment on above: small Nitrite, UA Negative Negative - Positive [facility] pH, UA 7 5 - 9 [facility] Protein, UA Negative Negative - 2000(20) ++++ mg/dL [facility] Spec Grav, UA 1.015 1 - 1.03 [facility] Urobilinogen, UA 0.2 0.2 - 12 mg/dL [facility] US OB FOLLOW UP TRANSABDOMIN AL [...] II, MD, PHD at 21-Oct-2024 08:41:57 AM [facility] Normal Not Available Comment on above: Order Comment: US OB SCAN FOR GROWTH Estimated Date of Delivery: 12/29/24 Gestational Age as of 10/12/2024: 28w6d Urinalysis macro (dipstick) panel (U)on 10-12-2024 Bilirubin, UA Negative Negative - 4(70) +++ mg/dL [facility] Blood, UA Negative Negative - 50 Rakesh/mcL [facility] Clarity, UA Clear [facility] Color, UA Yellow [facility] Glucose, UA Negative Negative - 1999(110) ++++ mg/dL [facility] Interpretation and review of laboratory results Abnormal [facility] Ketones, UA Negative Negative - 160(16) ++++ mg/dL [facility] Leukocytes, UA Positive Negative - 500+++ Matti/mcL [facility] Comment on above: small Nitrite, UA Negative Negative - Positive [facility] pH, UA 6 5 - 9 [facility] Protein, UA Trace Negative - 1999(20) ++++ mg/dL [facility] Spec Grav, UA 1.03 1 - 1.03 [facility] Urobilinogen, UA 0.2 0.2 - 12 mg/dL [facility] IGP,APTIMA HPV,AGE GDLNon AGE GDLN ACOG TESTING Note . [facility] Comment on above: TESTS RESULT FLAG UN ITS REF RANGE LAB Clinician Provided Cytology Information Source.............[employer] Other.............. No. of containers..01 ThinPrep Vial Age Algo ACOG Krista... FLAG LEGEND: L-Low Normal,H-High Normal,LL-Alert Low,HH-Alert High <-Panic Low,>-Panic High,A-Abnormal,AA-Critical Abnormal Performed at: 01 =G [address] [place] [address] Joann Denney MD, HPV APTIMA Negative Negative [facility] Comment on above: This nucleic acid am plification test detects fourteen high- risk HPV types (16,18,31,33,35,39,45,51,52,56,58,59,66,68) without differentiation. Performed at: =[address] [id number] Pad Making Machine Operator: Joann Denney MD, Phone: [phone] Performed at: [address] [id number] [employer] Operator: Joann Denney MD, Phone: [phone] IGP, APTIMA HPV, RFX 16/18,45 Note . [facility] Comment on above: TESTS RESULT FLAG UN ITS REF RANGE LAB DIAGNOSIS: 02 NEGATIVE FOR INTRAEPITHELIAL LESION OR MALIGNANCY. Specimen adequacy: 02 Satisfactory for evaluation. No endocervical component is identified. An endocervical component is not commonly seen in the patient. Performed by: 02 Mindy Martel Forensic Structural Engineer (ASCP) . 02 Note: Note 02 The [...] Low,>-Panic High,A-Abnormal,AA-Critical Abnormal Performed at: [address] [facility] [place] [address] Joann Denney MD, [facility] [facility] Urinalysis macro (dipstick) panel (U)on 09-14-2024 Bilirubin, UA Negative Negative - 4(70) +++ mg/dL [facility] Blood, UA Negative Negative - 50 Rakesh/mcL [facility] Clarity, UA Clear [facility] Color, UA Yellow [facility] Glucose, UA Negative Negative - 1999(110) ++++ mg/dL [facility] Interpretation and review of laboratory results Normal [facility] Ketones, UA Negative Negative - 160(16) ++++ mg/dL [facility] Leukocytes, UA Negative Negative - 500+++ Matti/mcL [facility] Nitrite, UA Negative Negative - Positive [facility] pH, UA 5.5 5 - 9 [facility] Protein, UA Negative Negative - 1999(20) ++++ mg/dL [facility] Spec Grav, UA 1.03 1 - 1.03 [facility] Urobilinogen, UA 1.0 0.2 - 12 mg/dL [facility] RECURRENT VAGINITIS (HTRX)on 09-11-2024 ATOPOBIUM VAGINAE 0 [facility] ATOPOBIUM VAGINAE Not detected [facility] BVAB 2,3 (BACTERIAL VAGINOSIS ASSOCIATED BACTERIA 2, 3); MOBILUNCUS SPP 0 [facility] BVAB 2,3 (BACTERIAL VAGINOSIS ASSOCIATED BACTERIA 2, 3); MOBILUNCUS SPP Not detected [facility] JEREMY ALBICANS, PARAPSILOSIS, TROPICALIS 0 [facility] JEREMY ALBICANS, PARAPSILOSIS, TROPICALIS Not detected [facility] JEREMY GLABRATA 0 [facility] JEREMY GLABRATA Not detected [facility] JEREMY KRUSEI 0 [facility] JEREMY KRUSEI Not detected [facility] CHLAMYDIA TRACHOMATIS 0 [facility] CHLAMYDIA TRACHOMATIS Not detected N [facility] GARDNERELLA VAGINALIS 0 [facility] GARDNERELLA VAGINALIS Not detected N [facility] MEGASPHAERA (TYPES 1, 2) 0 [facility] MEGASPHAERA (TYPES 1, 2) Not detected [facility] MYCOPLASMA GENITALIUM 0 [facility] MYCOPLASMA GENITALIUM Not detected N [facility] NEISSERIA GONORRHOEAE 0 [facility] NEISSERIA GONORRHOEAE Not detected N [facility] TRICHOMONAS VAGINALIS 0 [facility] TRICHOMONAS VAGINALIS Not detected N [facility] US OB 14+ WEEKS ANATOMY SCAN on [...] II, MD, PHD at 15-Aug-2024 07:21:28 AM [facility] Normal Not Available Comment on above: Order Comment: US OB ANATOMY SINGLE W US OB CERVICAL LENGTH Estimated Date of Delivery: 12/29/24 Gestational Age as of 07/20/2024: 16w6d AFP, SERUM, OPEN SPINA BIFID Aon 07-22-2024 AFP MOM 1.18 . [facility] AFP VALUE 42.2 ng/mL . [facility] COMMENT: Comment . [facility] Comment on above: Alma Chaudhary , Ph.D., [facility] Director References: Available Upon Request. Multiples Of Median Cutoffs For AFP Elevations Briscoe 2.5 Black 2.8 IDD 2.0 Twins 4.5 Abbreviation Definitions IDD - Insulin Dep Diabetes OSBR - Open Spina Bifida Risk For further inquiries contact [facility] at [phone]. This test was developed and its performance characteristics determined by [facility]. It has not been cleared or approved by the Food and Drug Administration. Performed at: [facility] [address] [place], [place] [id number] [employer] Making Machine Operator: Oz Harkins [facility], Phone: [phone] GEST. AGE ON COLLECTION DATE 16.9 . weeks [facility] GESTAT. AGE BASED ON LMP . [facility] Comment on above: Recalculations are n ot recommended when gestational dating by LMP and ultrasound are within 10 days. INSULIN DEP DIABETES No . [facility] INTERPRETATION Comment . [facility] Comment on above: Interpretation: Scre [...] Customer Services to discuss available options. [employer] recommends amniocentesis be offered to women age 35 and older. [age]GO [age] [facility] MULTIPLE GESTATION No . [facility] OSBR RISK 1 IN 6916 . [facility] RACE . [facility] RESULTS Report . [facility] TEST RESULTS: Negative . [facility] WEIGHT 159 . lbs [facility] N N LMP [id number] 6 16 N 1 159 N N N N N White/ [facility] Urinalysis macro (dipstick) panel (U)on 07-20-2024 Bilirubin, UA Negative Negative - 4(70) +++ mg/dL [facility] Blood, UA Negative Negative - 50 Rakesh/mcL [facility] Clarity, UA Clear [facility] Color, UA Yellow [facility] Glucose, UA Negative Negative - 2000(110) ++++ mg/dL [facility] Interpretation and review of laboratory results Abnormal [facility] Ketones, UA Negative Negative - 160(16) ++++ mg/dL [facility] Leukocytes, UA Trace Negative - 500+++ Matti/mcL [facility] Nitrite, UA Negative Negative - Positive [facility] pH, UA 6 5 - 9 [facility] Protein, UA Negative Negative - 2000(20) ++++ mg/dL [facility] Spec Grav, UA 1.03 1 - 1.03 [facility] Urobilinogen, UA 0.2 0.2 - 12 mg/dL [facility] ALL CBC WITH AUTO DIFFon BASOPHILS ABSOLUTE AUTO 0 [facility] Basophils/100 WBC (Bld) 0.3 % 0.2 - 2.0 % [facility] Eosinophils/100 WBC (Bld) 0.7 % Low 0.9 - 7.0 % [facility] Erythrocyte distribution width (RBC) [Ratio] 14.4 % 11.0 - 15.0 % [facility] Hematocrit (Bld) [Volume fraction] 42.1 % 36.0 - 48.0 % [facility] Hemoglobin (Bld) [Mass/Vol] 13.6 g/dL 12.0 - 16.0 g/dL [facility] IMMATURE GRANULOCYTES ABS AUTO 0.02 [facility] Immature granulocytes/100 WBC (Bld) 0.3 % 0.0 - 0.5 % [facility] Interpretation and review of laboratory results Abnormal [facility] LYMPHOCYTES ABSOLUTE AUTO 1.2 [facility] Lymphocytes/100 WBC (Bld) 15.9 % Low 20.5 - 60.0 % [facility] MCH (RBC) [Entitic mass] 27.6 pg 26.7 - 34.0 pg [facility] MCHC (RBC) [Mass/Vol] 32.3 g/dL 29.9 - 35.2 g/dL [facility] MCV (RBC) [Entitic vol] 85.4 fL 81.0 - 99.0 fL [facility] MONOCYTES ABSOLUTE AUTO 0.4 [facility] Monocytes/100 WBC (Bld) 5.2 % 1.7 - 12.0 % [facility] NEUTROPHILS ABSOLUTE AUTO 5.7 [facility] Neutrophils/100 WBC (Bld) 77.6 % High 43.0 - 75.0 % [facility] Platelet mean volume (Bld) [Entitic vol] 10 fL 9.5 - 13.5 fL [facility] TBH EO # 0.1 [facility]H PLT 194 [facility] TB RBC 4.93 [facility] WBC 7.4 [facility] Urine Cultureon 06-22-2024 Bacteria identified Cx Nom (U) <9,000 colonies/ml mixed bacterial skin contaminants 2 Days PERFORMED BY: [facility] [address] [place] [address] PATHOLOGIST ESTHETICIAN/SPA COORDINATOR JONO WILSON M.D. Normal [facility] Comment on above: Performed By: #### C UU #### [facility] [address] HCG ( test) Ql (U)o n 06-18-2024 Interpretation and review of laboratory results Abnormal [facility] Preg Test, Ur Positive Negative [facility] Urinalysis macro (dipstick) panel (U)on 06-18-2024 Bilirubin, UA Negative Negative - 4(70) +++ mg/dL [facility] Blood, UA Negative Negative - 50 Rakesh/mcL [facility] Clarity, UA Clear [facility] Color, UA Yellow [facility] Glucose, UA Negative Negative - 1999(110) ++++ mg/dL [facility] Interpretation and review of laboratory results Abnormal [facility] Ketones, UA Negative Negative - 160(16) ++++ mg/dL [facility] Leukocytes, UA Negative Negative - 500+++ Matti/mcL [facility] Nitrite, UA Negative Negative - Positive [facility] pH, UA 6.5 5 - 9 [facility] Protein, UA Negative Negative - 1999(20) ++++ mg/dL [facility] Spec Grav, UA 1.015 1 - 1.03 [facility] Urobilinogen, UA 0.2 0.2 - 12 mg/dL [facility] AFP, SERUM, OPEN SPINA BIFID Aon 07-20-2023 AFP MOM 1.21 . [facility] AFP VALUE 70.2 ng/mL . [facility] COMMENT: Comment . [facility] Comment on above: Alma Chaudhary , Ph.D., [facility] Director References: Available Upon Request. Multiples Of Median Cutoffs For AFP Elevations Briscoe 2.5 Black 2.8 IDD 2.0 Twins 4.5 Abbreviation Definitions IDD - Insulin Dep Diabetes OSBR - Open Spina Bifida Risk For further inquiries contact [facility] at [phone]. This test was developed and its performance characteristics determined by [facility]. It has not been cleared or approved by the Food and Drug Administration. Performed at: [facility] [address] [facility], [place], [place] [id number] Pad Making Machine Operator: Oz Harkins [facility], Phone: [phone] GEST. AGE ON COLLECTION DATE 20.4 . weeks [facility] GESTAT. AGE BASED ON LMP . [facility] Comment on above: Recalculations are n ot recommended when gestational dating by LMP and ultrasound are within 10 days. INSULIN DEP DIABETES No . [facility] INTERPRETATION Comment . [facility] Comment on above: Interpretation: Scre [...] Customer Services to discuss available options. [employer] recommends amniocentesis be offered to women age 35 and older. [age] [facility] MULTIPLE GESTATION No . [facility] OSBR RISK 1 IN 6301 . [facility] RACE . [facility] RESULTS Report . [facility] TEST RESULTS: Negative . [facility] WEIGHT 159 . lbs [facility] N N LMP [id number] 3 16 N 1 Y 159 N N N N White/ [facility] Urinalysis macro (dipstick) panel (U)on 07-18-2023 Bilirubin, UA Negative Negative - 4(70) +++ mg/dL [facility] Blood, UA Negative Negative - 50 Rakesh/mcL [facility] Clarity, UA Clear [facility] Color, UA Yellow [facility] Glucose, UA Negative Negative - 2000(110) ++++ mg/dL [facility] Interpretation and review of laboratory results Normal [facility] Ketones, UA Negative Negative - 160(16) ++++ mg/dL [facility] Leukocytes, UA Negative Negative - 500+++ Matti/mcL [facility] Nitrite, UA Negative Negative - Positive [facility] pH, UA 5.5 5 - 9 [facility] Protein, UA Negative Negative - 1999(20) ++++ mg/dL [facility] Spec Grav, UA 1.020 1 - 1.03 [facility] Urobilinogen, UA 1.0 0.2 - 12 mg/dL [facility] Free Cell DNAon 2022 [facility] Amphetamine Screen Ql (U)Ord ered By: Ryan Poe on 12-19-2022 Amphetamines Ql (U) Negative Negative [facility] Automated erythrocytes count in urine sediment (number/area)Ordered By: Ryan Poe on 12-19-2022 RBC Auto (Urine sed) [#/Area] 5-9 [HPF] 0-4 [facility] Automated leukocytes count i n urine sediment (number/area)Ordered By: Ryan Poe on 12-19-2022 WBC Auto (Urine sed) [#/Area] 10-19 [HPF] 0-4 [facility] Barbiturates [Presence] in U rine by Screen methodOrdered By: Ryan Poe on 12-19-2022 Barbiturates Screen Ql (U) Negative Negative [facility] Benzodiazepines Screen Ql (U )Ordered By: Ryan Poe on 12-19-2022 Benzodiazepines Ql (U) Negative Negative [facility] Benzoylecgonine [Presence] i n Urine by Screen methodOrdered By: Ryan Poe on 12-19-2022 Benzoylecgonine Screen Ql (U) Negative Negative [facility] Bilirubin Test strip Ql (U)O rdered By: Ryan Poe on 12-19-2022 Bilirubin Ql (U) Negative Negative [facility] Cannabinoids [Presence] in U rine by Screen methodOrdered By: Ryan Poe on 12-19-2022 Cannabinoids Screen Ql (U) Positive Negative [facility] Comment on above: These are unconfirme d results and should not be used for legal purposes. Drug Cut-Off Concentration: AMPH 1000 ng/mL SEEMA 200 ng/mL LAZ 200 ng/mL COCM 300 ng/mL OP 300 ng/mL PCP 25 ng/mL THC 20 ng/mL Color Auto (U)Ordered By: Fernando Poe on 12-19-2022 Color (U) Yellow Yellow [facility] HCG ( test) IA.rapi d Ql (U)Ordered By: Ryan Poe on 12-19-2022 HCG ( test) Ql (U) Negative [facility] Ketones Auto test strip (U) [Mass/Vol]Ordered By: Ryan Poe on 12-19-2022 Ketones (U) [Mass/Vol] 1+ Negative [facility] Laboratory - UrinalysisOrder ed By: Ryan Poe on 12-19-2022 Hyaline casts LM Ql (Urine sed) 0-8 [LPF] 0-8 [facility] Nitrite Test strip Ql (U)Ord ered By: Ryan Poe on 12-19-2022 Nitrite Ql (U) Negative Negative [facility] Opiates [Presence] in Urine by Screen methodOrdered By: Ryan Poe on 12-19-2022 Opiates Screen Ql (U) Negative Negative [facility] Phencyclidine Screen Ql (U)O rdered By: Ryan Poe on 12-19-2022 Phencyclidine Ql (U) Negative Negative [facility] Protein Auto test strip (U) [Mass/Vol]Ordered By: Ryan Poe on 12-19-2022 Protein (U) [Mass/Vol] Negative Negative [facility] Specific gravity Auto test s trip (U) [Rel density]Ordered By: Ryan Poe on 12-19-2022 Specific gravity (U) [Rel density] 1.025 1.001-1.03 0 [facility] Squamous epithelial cells de tection in urine sediment by light microscopyOrdered By: Ryan Poe on 12-19-2022 Epithelial cells.squamous LM Ql (Urine sed) 3-4 [HPF] 0-2 [facility] Urine bacteria detection by automated methodOrdered By: Ryan Poe on 12-19-2022 Bacteria Auto Ql (U) None seen None Seen [facility] Urine clarity by refractomet ry automatedOrdered By: Ryan Poe on 12-19-2022 Clarity Refractometry automated (U) Clear Clear [facility] Urine culture routineOrdered By: Ryan Poe on 12-19-2022 Bacteria identified Cx Nom (U) 2 Days [facility] Urine glucose measurement by automated test strip (mass/volume)Ordered By: Ryan Poe on 12-19-2022 Glucose Auto test strip (U) [Mass/Vol] Normal mg/dL Normal [facility] Urine hemoglobin detection b y automated test stripOrdered By: Ryan Poe on 12-19-2022 Hemoglobin Auto test strip Ql (U) Negative Negative [facility] Urine leukocyte esterase det ection by automated test stripOrdered By: Ryan Poe on 12-19-2022 Leukocyte esterase Auto test strip Ql (U) 2+ Negative [facility] Urobilinogen Auto test strip (U) [Mass/Vol]Ordered By: Ryan Poe on 12-19-2022 Urobilinogen (U) [Mass/Vol] Normal mg/dL Normal [facility] pH Auto test strip (U)Ordere d By: Ryan Poe on 12-19-2022 pH (U) 5.5 [pH] 5.0-9.0 [facility] Amylase [Enzymatic activity/ volume] in Serum or PlasmaOrdered By: Ryan Poe on 12-18-2022 Amylase [Catalytic activity/Vol] 35 U/L 29-103 [facility] Aspartate aminotransferase [ Enzymatic activity/volume] in Serum or PlasmaOrdered By: Ryan Poe on 12-18-2022 AST [Catalytic activity/Vol] 26 U/L 13-39 [facility] Basophils Auto (Bld) [#/Vol] Ordered By: Ryan Poe on 12-18-2022 Basophils (Bld) [#/Vol] 0.1 10*3/uL 0.0-0.2 [facility] Basophils/100 WBC Auto (Bld) Ordered By: Ryan Poe on 12-18-2022 Basophils/100 WBC (Bld) 0.7 % . [facility] Carbon dioxide, total [Moles /volume] in Serum or PlasmaOrdered By: Ryan Poe on 12-18-2022 CO2 [Moles/Vol] 20.0 mmol/L 21.0-31.0 [facility] Chloride [Moles/volume] in S gwendolyn or PlasmaOrdered By: Ryan Poe on 12-18-2022 Chloride [Moles/Vol] 105 mmol/L 98-107 [facility] Choriogonadotropin.beta subu nit [Units/volume] in Serum or PlasmaOrdered By: Ryan Peo on 12-18-2022 HCG.beta subunit Qn Negative [facility] Creatine kinase [Enzymatic a ctivity/volume] in Serum or PlasmaOrdered By: Ryan Poe on 12-18-2022 CK [Catalytic activity/Vol] 50 U/L 30-223 [facility] Creatinine [Mass/volume] in Serum or PlasmaOrdered By: Ryan Poe on 12-18-2022 Creatinine [Mass/Vol] 0.84 mg/dL 0.60-1.20 [facility] Eosinophils Auto (Bld) [#/Vo l]Ordered By: Ryan Poe on 12-18-2022 Eosinophils (Bld) [#/Vol] 0.0 10*3/uL 0.0-0.45 [facility] Eosinophils/100 WBC Auto (Bl d)Ordered By: Ryan Poe on 12-18-2022 Eosinophils/100 WBC (Bld) 0.2 % . [facility] Erythrocyte distribution wid th Auto (RBC) [Ratio]Ordered By: Ryan Poe on 12-18-2022 Erythrocyte distribution width (RBC) [Ratio] 14.4 % 11.9-15.3 [facility] Ethanol [Mass/volume] in Ser um or PlasmaOrdered By: Ryan Poe on 12-18-2022 Ethanol [Mass/Vol] mg/dL [facility] Ethanol [Mass/Vol] TNP [facility] Comment on above: Test not performed Glucose [Mass/volume] in Ser um or PlasmaOrdered By: Ryan Poe on 12-18-2022 Glucose [Mass/Vol] 93 mg/dL 70-100 [facility] Comment on above: ADA recommended refe rence rangeRandom Glucose Reference Range is dependent on time and content of last meal. Glucose of more than 200 mg/dL in a nonstressed, ambulatory subject supports the diagnosis of Diabetes Mellitus. Hematocrit Auto (Bld) [Volum e fraction]Ordered By: Ryan Poe on 12-18-2022 Hematocrit (Bld) [Volume fraction] 36.2 % 34.0-46.4 [facility] Hemoglobin [Mass/volume] in BloodOrdered By: Ryan Poe on 12-18-2022 Hemoglobin (Bld) [Mass/Vol] 11.9 g/dL 11.8-15.4 [facility] Leukocytes [#/volume] correc osmel for nucleated erythrocytes in Blood by Automated counOrdered By: Ryan Poe on 12-18-2022 WBC corrected for nucl RBC Auto (Bld) [#/Vol] 10.3 10*3/uL 3.8-11.6 [facility] Lipase [Enzymatic activity/v olume] in Serum or PlasmaOrdered By: Ryan Poe on 12-18-2022 Lipase [Catalytic activity/Vol] 29.0 U/L 11.0-82.0 [facility] Lymphocytes Auto (Bld) [#/Vo l]Ordered By: Ryan Poe on 12-18-2022 Lymphocytes (Bld) [#/Vol] 2.2 10*3/uL 1.00-4.8 [facility] Lymphocytes/100 WBC Auto (Bl d)Ordered By: Ryan Poe on 12-18-2022 Lymphocytes/100 WBC (Bld) 21.8 % . [facility] MCH Auto (RBC) [Entitic mass ]Ordered By: Ryan Poe on 12-18-2022 MCH (RBC) [Entitic mass] 26.9 pg 24.7-34.3 [facility] MCHC Auto (RBC) [Mass/Vol]Or dered By: Ryan Poe on 12-18-2022 MCHC (RBC) [Mass/Vol] 32.8 g/dL 32.0-35.0 [facility] MCV Auto (RBC) [Entitic vol] Ordered By: Ryan Poe on 12-18-2022 MCV (RBC) [Entitic vol] 82.1 fL 80-100 [facility] Monocyte distribution width [Entitic volume] in Blood by AutomatedOrdered By: Ryan Poe on 12-18-2022 Monocyte distribution width Auto (Bld) [Entitic vol] 22.19 % 0.00-20.00 [facility] Comment on above: For adults in ED, MD W > 20.0 may be associated with a higher risk of sepsis during the first 12 hrs of hospital admission Monocytes Auto (Bld) [#/Vol] Ordered By: Ryan Poe on 12-18-2022 Monocytes (Bld) [#/Vol] 0.8 10*3/uL 0.0-0.8 [facility] Monocytes/100 WBC Auto (Bld) Ordered By: Ryan Poe on 12-18-2022 Monocytes/100 WBC (Bld) 7.4 % . [facility] Neutrophils Auto (Bld) [#/Vo l]Ordered By: Ryan Poe on 12-18-2022 Neutrophils (Bld) [#/Vol] 7.2 10*3/uL 1.8-7.7 [facility] Neutrophils/100 WBC Auto (Bl d)Ordered By: Ryan Poe on 12-18-2022 Neutrophils/100 WBC (Bld) 69.9 % . [facility] No Panel InformationOrdered By: Ryan Poe on 12-18-2022 Estimated GFR (CKD-EPI) > 60.0 mL/Min [facility] Creatinine Clearance (Chem 98.76 [facility] Nucleated erythrocytes [Pres ence] in Blood by Automated countOrdered By: Ryan Poe on 12-18-2022 Nucleated RBC Auto Ql (Bld) 0.1 /100{WBC} 0-0.5 [facility] Platelet mean volume Auto (B ld) [Entitic vol]Ordered By: Ryan Poe on 12-18-2022 Platelet mean volume (Bld) [Entitic vol] 8.1 fL 6.3-10.7 [facility] Platelets Auto (Bld) [#/Vol] Ordered By: Ryan Poe on 12-18-2022 Platelets (Bld) [#/Vol] 223 10*3/uL 150-450 [facility] Potassium [Moles/volume] in Serum or PlasmaOrdered By: Ryan Poe on 12-18-2022 Potassium [Moles/Vol] 3.5 mmol/L 3.5-5.1 [facility] RBC Auto (Bld) [#/Vol]Ordere d By: Ryan Poe on 12-18-2022 RBC (Bld) [#/Vol] 4.42 10*6/uL 3.60-5.00 [facility] Serum or plasma anion gap de terminationOrdered By: Ryan Poe on 12-18-2022 Anion gap [Moles/Vol] 14.5 mmol/L 6.0-15.0 [facility] Sodium [Moles/volume] in Ser um or PlasmaOrdered By: Ryan Poe on 12-18-2022 Sodium [Moles/Vol] 136 mmol/L 136-145 [facility] Urea nitrogen [Mass/volume] in Serum or PlasmaOrdered By: Ryan Poe on 12-18-2022 Urea nitrogen [Mass/Vol] 21 mg/dL 7-25 [facility] WBC Auto (Bld) [#/Vol]Ordere d By: Ryan Poe on 12-18-2022 WBC (Bld) [#/Vol] 10.3 10*3/uL 3.8-11.6 [facility] PRBC LEUKOREDUCEDon 07-14-19 23 ABO and Rh group Nom (Bld) Cross Match Result Compatible Unit Blood Type A Pos Unit Number [id number] Status Information Released Specimen Exp Date Product ID Red Blood Cells Product Code [id number] Cross Match Result Compatible Unit Blood Type A Pos Unit Number [id number] Status Information Transfused Product ID Red Blood Cells Product Code [id number] Normal [facility] Comment on above: Performed By: #### R UBIGG #### [facility] [address] [place] [address] Dr. Juan Antonio Ibarra CBC AUTO DIFFon 07-07-2022 BASO # 0.0 103/ul Normal 0.0-0.1 [facility] Comment on above: Performed By: #### A 1C #### [facility] [address] [place] [address] Dr. Juan Antonio Ibarra Basophils/100 WBC (Bld) 0.3 % Normal 0.2-2.0 [facility] Comment on above: Performed By: #### A 1C #### [facility] [address] [place] [address] Dr. Juan Antonio Ibarra EO # 0.1 103/ul Normal 0.0-0.7 [facility] Comment on above: Performed By: #### A 1C #### [facility] [address] [place] [address] Dr. Juan Antonio Ibarra Eosinophils/100 WBC (Bld) 0.9 % Normal 0.9-7.0 [facility] Comment on above: Performed By: #### A 1C #### [facility] [address] [place] [address] Dr. Juan Antonio Ibarra Erythrocyte distribution width (RBC) [Ratio] 14.5 % Normal 11.0-15.0 [facility] Comment on above: Performed By: #### A 1C #### [facility] [address] [place] [address] Dr. Juan Antonio Ibarra Hematocrit (Bld) [Volume fraction] 22.5 % Critically low 36.0-48.0 [facility] Comment on above: Performed By: #### A 1C #### [facility] [address] [place] [address] Dr. Juan Antonio Ibarra Hemoglobin (Bld) [Mass/Vol] 7.9 g/dL Critically low 12.0-16.0 [facility] Comment on above: Performed By: #### A 1C #### [facility] [address] [place] [address] Dr. Juan Antonio Ibarra IG # 0.10 10e3/ul Critically high 0.00-0.03 [facility] Comment on above: Performed By: #### A 1C #### [facility] [address] [place] [address] Dr. Juan Antonio Ibarra IG % 0.9 % Critically high 0.0-0.5 [facility] Comment on above: Performed By: #### A 1C #### [facility] [address] [place] [address] Dr. Juan Antonio Ibarra LYMPH # 1.6 103/ul Normal 1.2-3.8 [facility] Comment on above: Performed By: #### A 1C #### [facility] [address] [place] [address] Dr. Juan Antonio Ibarra Lymphocytes/100 WBC (Bld) 14.0 % Critically low 20.5-60.0 [facility] Comment on above: Performed By: #### A 1C #### [facility] [address] [place] [address] Dr. uJan Antonio Ibarra MANUAL DIFF REQ NO Normal [facility] Comment on above: Performed By: #### A 1C #### [facility] [address] [place] [address] Dr. Juan Antonio Ibarra MCH (RBC) [Entitic mass] 26.4 pg Critically low 26.7-34.0 [facility] Comment on above: Performed By: #### A 1C #### [facility] [address] [place] [address] Dr. Juan Antonio Ibarra MCHC (RBC) [Mass/Vol] 35.1 g/dL Normal 29.9-35.2 [facility] Comment on above: Performed By: #### A 1C #### [facility] [address] [place] [address] Dr. Juan Antonio Ibarra MCV (RBC) [Entitic vol] 75.3 fL Critically low 81.0-99.0 [facility] Comment on above: Performed By: #### A 1C #### [facility] [address] [place] [address] Dr. Juan Antonio Ibarra MONO # 0.7 103/ul Normal 0.3-0.8 [facility] Comment on above: Performed By: #### A 1C #### [facility] [address] [place] [address] Dr. Juan Antonio Ibarra Monocytes/100 WBC (Bld) 6.2 % Normal 1.7-12.0 [facility] Comment on above: Performed By: #### A 1C #### [facility] [address] [place] [address] Dr. Juan Antonio Ibarra NEUT # 9.1 103/ul Critically high 1.4-6.5 [facility] Comment on above: Performed By: #### A 1C #### [facility] [address] [place] [address] Dr. Juan Antonio Ibarra Neutrophils/100 WBC (Bld) 77.7 % Critically high 43.0-75.0 [facility] Comment on above: Performed By: #### A 1C #### [facility] [address] [place] [address] Dr. Juan Antonio Ibarra Platelet mean volume (Bld) [Entitic vol] 9.2 fL Critically low 9.5-13.5 [facility] Comment on above: Performed By: #### A 1C #### [facility] [address] [place] [address] Dr. Juan Antonio Ibarra PLT 143 103/ul Critically low 150-450 [facility] Comment on above: Performed By: #### A 1C #### [facility] [address] [place] [address] Dr. Juan Antonio Ibarra RBC 2.99 106/ul Critically low 4.20-5.40 [facility] Comment on above: Performed By: #### A 1C #### [facility] [address] [place] [address] Dr. Juan Antonio Ibarra WBC 11.7 103/ul Critically high 4.0-11.0 [facility] Comment on above: Performed By: #### A 1C #### [facility] [address] [place] [address] Dr. Juan Antonio Ibarra CBC AUTO DIFFon 07-06-2022 BASO # 0.0 103/ul Normal 0.0-0.1 [facility] Comment on above: Performed By: #### A 1C #### [facility] [address] [place] [address] Dr. Juan Antonio Ibarra Basophils/100 WBC (Bld) 0.3 % Normal 0.2-2.0 [facility] Comment on above: Performed By: #### A 1C #### [facility] [address] [place] [address] Dr. Juan Antonio Ibarra EO # 0.1 103/ul Normal 0.0-0.7 [facility] Comment on above: Performed By: #### A 1C #### [facility] [address] [place] [address] Dr. Juan Antonio Ibarra Eosinophils/100 WBC (Bld) 0.8 % Critically low 0.9-7.0 [facility] Comment on above: Performed By: #### A 1C #### [facility] [address] [place] [address] Dr. Juan Antonio Ibarra Erythrocyte distribution width (RBC) [Ratio] 14.3 % Normal 11.0-15.0 [facility] Comment on above: Performed By: #### A 1C #### [facility] [address] [place] [address] Dr. Juan Antonio Ibarra Hematocrit (Bld) [Volume fraction] 23.0 % Critically low 36.0-48.0 [facility] Comment on above: Performed By: #### A 1C #### [facility] [address] [place] [address] Dr. Juan Antonio Ibarra Hemoglobin (Bld) [Mass/Vol] 7.5 g/dL Critically low 12.0-16.0 [facility] Comment on above: Performed By: #### A 1C #### [facility] [address] [place] [address] Dr. Juan Antonio Ibarra IG # 0.07 10e3/ul Critically high 0.00-0.03 [facility] Comment on above: Performed By: #### A 1C #### [facility] [address] [place] [address] Dr. Juan Antonio Ibarra IG % 0.6 % Critically high 0.0-0.5 [facility] Comment on above: Performed By: #### A 1C #### [facility] [address] [place] [address] Dr. Juan Antonio Ibarra LYMPH # 2.1 103/ul Normal 1.2-3.8 [facility] Comment on above: Performed By: #### A 1C #### [facility] [address] [place] [address] Dr. Juan Antonio Ibarra Lymphocytes/100 WBC (Bld) 18.8 % Critically low 20.5-60.0 [facility] Comment on above: Performed By: #### A 1C #### [facility] [address] [place] [address] Dr. Juan Antonio Ibarra MANUAL DIFF REQ NO Normal [facility] Comment on above: Performed By: #### A 1C #### [facility] [address] [place] [address] Dr. Juan Antonio Ibarra MCH (RBC) [Entitic mass] 26.0 pg Critically low 26.7-34.0 [facility] Comment on above: Performed By: #### A 1C #### [facility] [address] [place] [address] Dr. Juan Antonio Ibarra MCHC (RBC) [Mass/Vol] 32.6 g/dL Normal 29.9-35.2 [facility] Comment on above: Performed By: #### A 1C #### [facility] [address] [place] [address] Dr. Juan Antonio Ibarra MCV (RBC) [Entitic vol] 79.9 fL Critically low 81.0-99.0 [facility] Comment on above: Performed By: #### A 1C #### [facility] [address] [place] [address] Dr. Juan Antonio Ibarra MONO # 0.7 103/ul Normal 0.3-0.8 [facility] Comment on above: Performed By: #### A 1C #### [facility] [address] [place] [address] Dr. Juan Antonio Ibarra Monocytes/100 WBC (Bld) 6.6 % Normal 1.7-12.0 [facility] Comment on above: Performed By: #### A 1C #### [facility] [address] [place] [address] Dr. Juan Antonio Ibarra NEUT # 8.2 103/ul Critically high 1.4-6.5 [facility] Comment on above: Performed By: #### A 1C #### [facility] [address] [place] [address] Dr. Juan Antonio Ibarra Neutrophils/100 WBC (Bld) 72.9 % Normal 43.0-75.0 [facility] Comment on above: Performed By: #### A 1C #### [facility] [address] [place] [address] Dr. Juan Antonio Ibarra Platelet mean volume (Bld) [Entitic vol] 9.8 fL Normal 9.5-13.5 [facility] Comment on above: Performed By: #### A 1C #### [facility] [address] [place] [address] Dr. Juan Antonio Ibarra PLT 151 103/ul Normal 150-450 [facility] Comment on above: Performed By: #### A 1C #### [facility] [address] [place] [address] Dr. Juan Antonio Ibarra RBC 2.88 106/ul Critically low 4.20-5.40 [facility] Comment on above: Performed By: #### A 1C #### [facility] [address] [place] [address] Dr. Juan Antonio Ibarra WBC 11.3 103/ul Critically high 4.0-11.0 [facility] Comment on above: Performed By: #### A 1C #### [facility] [address] [place] [address] Dr. Juan Antonio Ibarra CBC AUTO DIFFon 07-05-2022 BASO # 0.0 103/ul Normal 0.0-0.1 [facility] Comment on above: Performed By: #### R PRQ #### [facility] [address] [place] [address] Dr. Juan Antonio Ibarra Basophils/100 WBC (Bld) 0.2 % Normal 0.2-2.0 [facility] Comment on above: Performed By: #### R PRQ #### [facility] [address] [place] [address] Dr. Juan Antonio Ibarra EO # 0.0 103/ul Normal 0.0-0.7 [facility] Comment on above: Performed By: #### R PRQ #### [facility] [address] [place] [address] Dr. Juan Antonio Ibarra Eosinophils/100 WBC (Bld) 0.4 % Critically low 0.9-7.0 [facility] Comment on above: Performed By: #### R PRQ #### [facility] [address] [place] [address] Dr. Juan Antonio Ibarra Erythrocyte distribution width (RBC) [Ratio] 14.2 % Normal 11.0-15.0 [facility] Comment on above: Performed By: #### R PRQ #### [facility] [address] [place] [address] Dr. Juan Antonio Ibarra Hematocrit (Bld) [Volume fraction] 31.0 % Critically low 36.0-48.0 [facility] Comment on above: Performed By: #### R PRQ #### [facility] [address] [place] [address] Dr. Juan Antonio Ibarra Hemoglobin (Bld) [Mass/Vol] 10.1 g/dL Critically low 12.0-16.0 [facility] Comment on above: Performed By: #### R PRQ #### [facility] [address] [place] [address] Dr. Juan Antonio Ibarra IG # 0.10 10e3/ul Critically high 0.00-0.03 [facility] Comment on above: Performed By: #### R PRQ #### [facility] [address] [place] [address] Dr. Juan Antonio Ibarra IG % 1.1 % Critically high 0.0-0.5 [facility] Comment on above: Performed By: #### R PRQ #### [facility] [address] [place] [address] Dr. Juan Antonio Ibarra LYMPH # 1.6 103/ul Normal 1.2-3.8 [facility] Comment on above: Performed By: #### R PRQ #### [facility] [address] [place] [address] Dr. Juan Antonio Ibarra Lymphocytes/100 WBC (Bld) 17.5 % Critically low 20.5-60.0 [facility] Comment on above: Performed By: #### R PRQ #### [facility] [address] [place] [address] Dr. Juan Antonio Ibarra MANUAL DIFF REQ NO Normal [facility] Comment on above: Performed By: #### R PRQ #### [facility] [address] [place] [address] Dr. Juan Antonio Ibarra MCH (RBC) [Entitic mass] 25.8 pg Critically low 26.7-34.0 [facility] Comment on above: Performed By: #### R PRQ #### [facility] [address] [address] [address] Juan Antonio Ibarra MCHC (RBC) [Mass/Vol] 32.6 g/dL Normal 29.9-35.2 [facility] Comment on above: Performed By: #### R PRQ #### [facility] [address] [place] [address] Dr. Juan Antonio Ibarra MCV (RBC) [Entitic vol] 79.3 fL Critically low 81.0-99.0 [facility] Comment on above: Performed By: #### R PRQ #### [facility] [address] [place] [address] Dr. Juan Antonio Ibarra MONO # 0.7 103/ul Normal 0.3-0.8 [facility] Comment on above: Performed By: #### R PRQ #### [facility] [address] [place] [address] Dr. Juan Antonio Ibarra Monocytes/100 WBC (Bld) 8.1 % Normal 1.7-12.0 [facility] Comment on above: Performed By: #### R PRQ #### [facility] [address] [place] [address] Dr. Juan Antonio Ibarra NEUT # 6.7 103/ul Critically high 1.4-6.5 [facility] Comment on above: Performed By: #### R PRQ #### [facility] [address] [place] [address] Dr. Juan Antonio Ibarra Neutrophils/100 WBC (Bld) 72.7 % Normal 43.0-75.0 [facility] Comment on above: Performed By: #### R PRQ #### [facility] [address] [place] [address] Dr. Juan Antonio Ibarra Platelet mean volume (Bld) [Entitic vol] 10.1 fL Normal 9.5-13.5 [facility] Comment on above: Performed By: #### R PRQ #### [facility] [address] [place] [address] Dr. Juan Antonio Ibarra PLT 202 103/ul Normal 150-450 [facility] Comment on above: Performed By: #### R PRQ #### [facility] [address] [place] [address] Dr. Juan Antonio Ibarra RBC 3.91 106/ul Critically low 4.20-5.40 [facility] Comment on above: Performed By: #### R PRQ #### [facility] [address] [place] [address] Dr. Juan Antonio Ibarra WBC 9.2 103/ul Normal 4.0-11.0 [facility] Comment on above: Performed By: #### R PRQ #### [facility] [address] [place] [address] Dr. Juan Antonio Ibarra DRUG SCREEN RAPID (URINE)on 07-05-2022 AMP Negative Normal NEGATIVE [facility] Comment on above: Performed By: #### A 1C #### [facility] [address] [place] [address] Dr. Juan Antonio Ibarra BAR Negative Normal NEGATIVE [facility] Comment on above: Performed By: #### A 1C #### [facility] [address] [place] [address] Dr. Juan Antonio Ibarra BUP Negative Normal NEGATIVE [facility] Comment on above: Performed By: #### A 1C #### [facility] [address] [place] [address] Dr. Juan Antonio Ibarra BZO Negative Normal NEGATIVE [facility] Comment on above: Performed By: #### A 1C #### [facility] [address] [place] [address] Dr. Juan Antonio Ibarra PARAM Negative Normal NEGATIVE [facility] Comment on above: Performed By: #### A 1C #### [facility] [address] [place] [address] Dr. Juan Antonio Ibarra CUT-OFFS SEE BELOW Normal [facility] Comment on above: Result Comment: AMP (Amphetamine): 500ng/mL, BAR (Barbituates): 200 ng/mL, BZO (Benzodiazepines): 150 ng/mL, BUP (Buprenorphine): 10 ng/mL, PARAM (Cocaine): 150 ng/mL, mAMP (Methamphetamine): 500 ng/mL, MTD (Methadone): 200 ng/mL, OPI (Opiates): 100 ng/mL, OXY (Oxycodone): 100 ng/mL, PCP (Phencyclidine): 25 ng/mL, PPX (Propoxyphene): 300 ng/mL, THC (Cannabinoids): 50 ng/mL, TCA (Trycyclic Antidepressants): 300 ng/mL Performed By: #### A 1C #### [facility] [address] [place] [address] Dr. Juan Antonio Ibarra DRUG CUT HEADER DRUG CLASS TEST SYST EM CUT-OFF CONCENTRATIONS ARE FOLLOWS: Normal [facility] Comment on above: Performed By: #### A 1C #### [facility] [address] [place] [address] Dr. Juan Antonio Ibarra mAMP Negative Normal NEGATIVE [facility] Comment on above: Performed By: #### A 1C #### [facility] [address] [place] [address] Dr. Juan Antonio Ibarra MTD Negative Normal NEGATIVE [facility] Comment on above: Performed By: #### A 1C #### [facility] [address] [place] [address] Dr. Juan Antonio Ibarra OPI Negative Normal NEGATIVE [facility] Comment on above: Performed By: #### A 1C #### [facility] [address] [place] [address] Dr. Juan Antonio Ibarra OXY Negative Normal NEGATIVE [facility] Comment on above: Performed By: #### A 1C #### [facility] [address] [place] [address] Dr. Juan Antonio Ibarra PCP Negative Normal NEGATIVE [facility] Comment on above: Performed By: #### A 1C #### [facility] [address] [place] [address] Dr. Juan Antonio Ibarra PPX Negative Normal NEGATIVE [facility] Comment on above: Performed By: #### A 1C #### [facility] [address] [place] [address] Dr. Juan Antonio Ibarra TCA Negative Normal NEGATIVE [facility] Comment on above: Performed By: #### A 1C #### [facility] [address] [place] [address] Dr. Juan Antonio Ibarra THC Negative Normal NEGATIVE [facility] Comment on above: Performed By: #### A 1C #### [facility] [address] [address] [address] Juan Antonio Ibarra TYPE AND SCREENon 07-05-2022 TYPE AND SCREEN Negative Normal [facility] Comment on above: Performed By: #### T NS #### [facility] [address] [address] [address] Juan Antonio Ibarra US PREG BIOPHY [...] by: FELECIA GOLDMAN Date: 2022-06-28 15:29 Normal [facility] US PREG BIOPHY W NON [...] by: FELECIA GOLDMAN Date: 2022-06-21 17:20 Normal [facility] US PREG GROWTHon 06-21-2022 US PREG GROWTH [...] GAMALIEL MARTEL Date: 2022-06-21 13:37 Normal [facility] CULTURE URINEon 06-16-2022 CULTURE URINE Culture Observations : LIGHT GROWTH OF MIXED GENITAL ALONSO. NO POTENTIAL PATHOGENS SEEN. Normal [facility] Comment on above: Performed By: #### U RCX #### [facility] [address] [place] [address] Dr. 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 Juan Antonio Ibarra Clarity (U) CLEAR Normal CLEAR [facility] Comment on above: Performed By: #### U MICRO, UACSIND #### [facility] [address] [place] [address] Dr. Juan Antonio Ibarra Color (U) LT. YELLOW Normal YELLOW [facility] Comment on above: Performed By: #### U MICRO, UACSIND #### [facility] [address] [place] [address] Dr. Juan Antonio Ibarra Glucose Ql (U) Negative Normal NEGATIVE [facility] Comment on above: Performed By: #### U MICRO, UACSIND #### [facility] [address] [place] [address] Dr. Juan Antonio Ibarra Hemoglobin Ql (U) Negative Normal NEGATIVE [facility] Comment on above: Performed By: #### U MICRO, UACSIND #### [facility] [address] [address] [address] Juan Antonio Ibarra Ketones Ql (U) Negative Normal NEGATIVE [facility] Comment on above: Performed By: #### U MICRO, UACSIND #### [facility] [address] [place] [address] Dr. Juan Antonio Ibarra LEUKOCYTES MODERATE Abnormal NEGATIVE [facility] Comment on above: Performed By: #### U MICRO, UACSIND #### [facility] [address] [address] [address] Juan Antonio Ibarra Nitrite Ql (U) Negative Normal NEGATIVE [facility] Comment on above: Performed By: #### U MICRO, UACSIND #### [facility] [address] [place] [address] Dr. Juan Antonio Ibarra pH (U) 6.0 [pH] Normal 5-9 [facility] Comment on above: Performed By: #### U MICRO, UACSIND #### [facility] [address] [address] [address] Juan Antonio Ibarra SPEC GRAVITY 1.020 Normal 1.005-<=1. 025 [facility] Comment on above: Performed By: #### U MICRO, UACSIND #### [facility] [address] [place] [address] Dr. Juan Antonio Ibarra UA PROTEIN Negative Normal NEGATIVE/ TRACE [facility] Comment on above: Performed By: #### U MICRO, UACSIND #### [facility] [address] [address] [address] Juan Antonio Ibarra UR MICRO IND INDICATED Normal [facility] Comment on above: Performed By: #### U MICRO, UACSIND #### [facility] [address] [place] [address] Dr. Juan Antonio Ibarra Urobilinogen Qn (U) 1.0 {Pamela'U}/dL Normal 0.2 - 1. 0 [facility] Comment on above: Performed By: #### U MICRO, UACSIND #### [facility] [address] [place] [address] Dr. Juan Antonio Ibarra URINE MICROSCOPIC ONLYon BACTERIA SMALL Abnormal NONE SEEN [facility] Comment on above: Performed By: #### U MICRO, UACSIND #### [facility] [address] [place] [address] Dr. Juan Antonio Ibarra Bacteria identified Cx Nom (U) INDICATED Normal [facility] Comment on above: Performed By: #### U MICRO, UACSIND #### [facility] [address] [place] [address] Dr. Juan Antonio Ibarra CAST NONE SEEN Normal NONE SEEN [facility] Comment on above: Performed By: #### U MICRO, UACSIND #### [facility] [address] [place] [address] Dr. Juan Antonio Ibarra Crystals LM Nom (Urine sed) NONE SEEN Normal NONE SEEN [facility] Comment on above: Performed By: #### U MICRO, UACSIND #### [facility] [address] [place] [address] Dr. Juan Antonio Ibarra Epithelial cells LM Ql (Urine sed) RARE Normal NONE SEEN /RARE [facility] Comment on above: Performed By: #### U MICRO, UACSIND #### [facility] [address] [place] [address] Dr. Juan Antonio Ibarra MUCOUS NONE SEEN Normal NONE SEEN [facility] Comment on above: Performed By: #### U MICRO, UACSIND #### [facility] [address] [place] [address] Dr. Juan Antonio Ibarra RBC NONE SEEN Abnormal 0-2 [facility] Comment on above: Performed By: #### U MICRO, UACSIND #### [facility] [address] [place] [address] Dr. Juan Antonio Ibarra WBC 2-5 Abnormal NONE SEEN [facility] Comment on above: Performed By: #### U MICRO, UACSIND #### [facility] [address] [place] [address] Dr. Juan Antonio Ibarra GROUP B STREP CULTUREon 05-18 S. agalactiae Ag Ql (Unsp spec) Culture Observations: NEGATIVE FOR GROUP B STREPTOCOCCUS. Normal [facility] Comment on above: Performed By: #### G BSCX #### [facility] [address] [place] [address] Dr. Juan Antonio Ibarra US PREG BIOPHY [...] by: GAMALIEL MARTEL Date: 2022-06-14 16:10 Normal [facility] US PREG BIOPHY W NON [...] by: FELECIA GOLDMAN Date: 2022-06-07 16:42 Normal [facility] US PREG BIOPHY W NON [...] by: FELECIA GOLDMAN Date: 2022-06-04 17:11 Normal [facility] US PREG BIOPHY W NON [...] by: FELECIA GOLDMAN Date: 2022-06-04 16:23 Normal [facility] US PREG BIOPHY W NON [...] by: GAMALIEL MARTEL Date: 2022-05-31 18:39 Normal [facility] US PREG BIOPHY W NON [...] by: FELECIA GOLDMAN Date: 2022-05-24 16:34 Normal [facility] US PREG GROWTHon 05-24-2022 US PREG GROWTH [...] FELECIA GOLDMAN Date: 2022-05-24 16:33 Normal [facility] GLUCOSE - 1HRon 04-04-2022 Glucose [Mass/Vol] 101 mg/dL Normal 74-106 [facility] Comment on above: Performed By: #### R PRQ #### [facility] [address] [place] [address] Dr. Juan Antonio Ibarra HEMOGRAM AND PLATELon 2021 Hematocrit (Bld) [Volume fraction] 33.5 % Critically low 36.0-48.0 [facility] Comment on above: Performed By: #### A 1C #### [facility] [address] [place] [address] Dr. Juan Antonio Ibarra Hemoglobin (Bld) [Mass/Vol] 10.7 g/dL Critically low 12.0-16.0 [facility] Comment on above: Performed By: #### A 1C #### [facility] [address] [place] [address] Dr. Juan Antonio Ibarra MCH (RBC) [Entitic mass] 29.3 pg Normal 26.7-34.0 [facility] Comment on above: Performed By: #### A 1C #### [facility] [address] [address] [address] Juan Antonio Ibarra MCHC (RBC) [Mass/Vol] 31.9 g/dL Normal 29.9-35.2 [facility] Comment on above: Performed By: #### A 1C #### [facility] [address] [place] [address] Dr. Juan Antonio Ibarra MCV (RBC) [Entitic vol] 91.8 fL Normal 81.0-99.0 [facility] Comment on above: Performed By: #### A 1C #### [facility] [address] [place] [address] Dr. Juan Antonio Ibarra PLT 179 103/ul Normal 150-450 [facility] Comment on above: Performed By: #### A 1C #### [facility] [address] [place] [address] Dr. Juan Antonio Ibarra RBC 3.65 106/ul Critically low 4.20-5.40 [facility] Comment on above: Performed By: #### A 1C #### [facility] [address] [place] [address] Dr. Juan Antonio Ibarra WBC 9.9 103/ul Normal 4.0-11.0 [facility] Comment on above: Performed By: #### A 1C #### [facility] [address] [place] [address] Dr. Juan Antonio Ibarra US PREG REEVAL [...] FELECIA GOLDMAN Date: 2022-03-20 20:55 Normal [facility] US PREG ANATOMY SINGLEon US PREG ANATOMY [...] by: FELECIA GOLDMAN Date: 2022-02-22 16:46 Normal [facility] Coding Summaryon 02-14-2022 Coding Summary [facility] QdplhreaTYn5fHq+PGhlYWQ+PE 2NTGScE62dlNZstI4IW5sVAE4N LUCZTKFECD9OJR0ltLL2GLntW6 VybiAv DxtwzXWfVC53NMf3SHB2vNjtKX yzmN1imWZuM4r6KrYzAG74qW81 KRdkWTRqSzP8EwRcpgvsqYFk E6tnNiPbyBFfKcw+PHRhYmxlIH myOVBlJZsxGVCkMoUlqMadWB8e Dv1wZOJoBZGsdBovvCApEqLp z3ttQGUfSZwmAS0znAbcN3EvxQ B4RWNcp1h6El81lHA+PHRkIHN0 fPjaLJzhq894GyUca4gyZBM0 pDCjVUmyUFS0Q57zb7D2OGOlML WrMFZ7vKR4nE9kmYmlpnwuX1Xg uWRfGnE7UUD6sOMmqM1aqDkt dwdiiA1sClg+U18IMA3GSLEBEW 4FBwc1Z8MpRbziqVR+UI12BSPw VE77qCEqcEIun2pbbVt8RvMa BUGiCIO0lYstUYsoy8JlBCFsW0 4abLFos4U8LBCwzQdzkTVyHwMx vLY1qT6bFVswnwsro0chpagg Jujbc4vwxv33aY00P54aMSesIU AoKRO4RSRdJYTwqZfzax4mfO2f Ii8+CGujq2aap2makJr8KxKo WLTqexOiiYsyHAP7v3MoIz54Z8 ZcjSphk1GeXct4cw52pIHqa9A9 vNV1OIvyIOMrmI0tXGraDgC7 BEIuFkDcnI99tAXsZRvwCx9xyV bgvSumKR6dGVMmnioqNPRgiF9n KBCtoWGvuZjoVU6eWVVrugxi v668AdKoZGQ7OTFexUPyS1GpqT 8qAtWyEKKeTPRgE0IjpQYgXEjn H537BCamHeY5KKRkjcQpP0Ee CEJcwBamQbX8k6R2Rr2Rd7Lgmd mxCLA8MDhrWCK7EpUoWpKoQrV7 W7RwRgp4BZHxkWcwRI5pU6Ha OUFgxgrhigwrpUY0FYHfIGAoiY 32tMGwBBegKg6wr8I4w291BWYr SWUviY17Jr9joKkyNYTbeECT oP4xoyetr5ephlfiRxExVGScSU z7SQf3THFlyFhoIjLtDYW0GgL5 ICB8qXDxvR5mwBvcqpeuiJ3j Oyc+Y41ddS7aZCE9ZUN7blmsPN PpdgNyTE54DH77N1WyDitigOYn bGU+HFPkaeExsAlqAQ5fSiGs b2sxb0NuFOyeE2RgFPMhKNxxYd m7HYEaWHI7xDK2rT1nGREcMOov f3F9oWC9A1RzjoZnsj4to4no WICpOMihY75siAPng6M9OVPrtM R9VVWzkDhzQuBfzE02Aay+PGNv cUyac2ElSacmq9gfs3dioPf3 HlBnCRBupwKftCviECZ6y5RmZk 08I21lJZxlBEOeZFTfHTSfCXUe sGhyxr0jfO0qWe0+PGNvbCB3 hLP5wO1eXGIrUtQ5ZAbvL336Kp JotDBjGmill4esk6zjrJd5QyCx OCJqrhEitWxjWFS1b7JrKz09 R03xGWnkSTLgMFZzYKJmVSPnnE tooo3xfB6sTl1+XV6bl9clua95 gT87xSB+TKZsKCI2yVcqFEzh BSAzgF0eRWvwOjC4EVIiFqZmpU 88lGXnYAfzCr7yvWccbDyrHN6h MYEpkfqgk662VlPzj9sjSIFs vHGyYXcvQGF8Z98mw9K8XPOqPF VrVJC1xDP9hA1fuIsppecvvRTr vBfauhKowLoaQHgcFOjwS523 IHRvcDsnPlBhdGllbnQgTmFtZT v0W9FwLpa8JILxuOeqBB0jfLJi OHmjTr4ytEtunJmkJP3uREBi zyikk985QsLhe4jnMMKhtEZlOG kdYDV7I00at6U4ZUXlSXBlNXE3 hLI7xS8unEylvozviRDcoWvf nvNznErkKNfbZMkdG297GEQhpY mvLmDkllXnKLUsbYT1TA75JO78 mGHpo2U0pQH2R8ThCIFeycrg nkdvgXX7ZHZdQYCxbL05Kc1lzX lxHt1lEOVqVSL5YSTlxYJoJ3Qr aU4zHyNhUXOkRVWcM4JbgXJi XPxlZ164MSocQsM6SJLmpsTdA5 ExSORtiUtjKsM6q7L4Ha1AE6L1 NB37XP87lKAqf1N1sUE3B2Kn KKYahomznaaijPJ2ACOdTXSrrS 57Xe7koTiqYh9mBHMiLGD6XSTx eJXgK5NisE7jXqEpOGKoOIHj Z4JqyAFtYAvrW598EDlwXtQ5SF MywoIxW2PyYLJzzMxkDeO5y4R8 Dn5QUOz9BT75ZZ44bBEkr1N3 jPX9L3ZtPLNpwlhjisqzsCW1CN NcZLLepN16Xi2vuBjdOt5dDRXi FEI6PBPwdHZrH3YakT1nNaDa JCOnQRRoN4NabURfMQcqQ604US jfSeN4HSYdxaXxX2KlRHHqqKmu KkZ0p7Y8Iy2TILEuBN63NRX3 iVR2TO47PC94F5LaJfvxwMJfiO U+PHRhYmxlIHdpZHRoPScxMDAl JdNakGiaGF1fYj0jMNYcRKEe sNqdiBJiBeJsx3wnKRTvRRsyMH 1geDspK8GmvHK5PDLjn9r7Oy04 V98mA7NvhCL+IBUdxZJ8iJO2 vZ0bHoZoHgK0PEosP406BmEsuU ThAyxzb2ozp5cezEp9LsN3QXLl wpGbpMlcGRK0i1BvDo68Z21o IHdpZHRoPSIxNSUiIHZhbGlnbj 4crV1pAx6+JTZneJF2rHD0aU1b DxPdSjC0QXuoI690KnAocJJa Oxkmm6ekx0dfeBo6FfRlDYRuwc TflTsyBMI6k5GvMq81X1EtiAbm q1SqTnj5pc00qXUkn6L4uGK7 I9UhGBMstigcvCGeeNvuDJ4kON BzpdlhJNPzzL2eMLRwR9d9MtYm OoE0YVmxH1MgabL0TRFbqUZg VMvcIOZ9X85br0E6HHTxLDSoZP O9sOH7gG5jsOssrkeqmRMjmYmb weXgaHdsGJawMLnbS499PLRz bHgkSPZpjG5dFSYjfYJavXgaIC 4wNTBpbjsnPlNURUlOLCBWSVJH JL3RAXKZVPI0O7XtSbd8IVQh mZtjJM3fwEBkXQhcVu7qoNsbcN ylLI7hRGVxcihmEKMdrM8qCRWc hZAtqIivUZ6zQDLjiaftu164 XgDrNGI0OLKbsMBkM9SdqM2wHg FoRKJsMKRjC5CvnZCkTFqhN404 BFqzSnO1DTQnzhPsV5LeJPKx yRuqEfU3h9T8Jn1pAT5qVO8hRE qaSU31YR70pFGbh2W6iDR8L0An ZAEvoephsgdpzCZ6WZFaZRZa tZ74oGCqZUokEi0cm2N4c749OT GvFIVccD99Lu5bnYxfCHTznPUA yB4bbwepv3pfcqmmUzGzBYIa ZUe2KDo2QPRiwIedVpXxQLV5Bc W3WNB3xTQtvW0boKijzrxccP2d Oyc+CtdfIAMfhmJ6O6QhJir1 NKKpcStsHM1dwWOeFZghGm5pmH bmgNqzBW3xXQOsvztoBQZkmZ9e QQJioFPqqNgqQX9eBOHsarwo w687JgBrQJS9SEFgbXAzJ3FemU 5kQfNzXOZlZVYcU5PtsFPyNLwl E596QDmfFzT1QHOufhLlC2Ob TTYxjGrmZxR0k4S9Yl2RMA7LQR W8L2AoRmi1VHLdtDcpBT9vtIQx KTkkWi4ckXuqkYtkOD0pKUFq npudBBYulP9yTSThjVRetRfjHY 8kYODeykeot867ZlZcUOD9SCGo pPDhD7DwqO3yMvWbFVLbKCAp W1JvmMUiHJilO938EKvuFoN3ST XmpdHaH4WlEBYclHrjVzB0z2V0 Vi3UZSddxQW+BY33np83F4Tb AylrQnv2CKUhJEJ1tSV8sD7gUX AdZPfbd0O7iNV6H0SdhqUtwo0i e3ngATBaWWwzF48xlJQfo0M1 ERHpcMX2MMNcrOggWqJqiO53Um c+NZNxaIpyd9VrMgkar3krl9ix nOz5OhYnIWEvzwDpyGvhXRF4 l7NjSr04U97iCUpmVLHpKDVtMA FeCOTvvHycwg9vhY6uZl5+PGNv fCB6nGB8lN6oSyFcJoU9BLxt P961AoZgyUPiLngcp4mux5urmX e0DhWuHEAljnHrpCqfXLT5f7Rt Os59Q0TfcBzeb5TmTvo4fl72 kMFhn1G0bGP2B5FpCURzbiciqA SudYhpIT3zRIAqxxklZUEgrE5j LWLlN9u0XpDsNxJ6RMxdB8Mh roH9NKHjrASdVVEqcQQSuW8xrt mob7ruafudQoRiUJJtXEg0AZd8 DVDnaTnvOiPvUTM4LcZ3DWR3 fFBucS9hmFmypvbdlM7mWab+UG z5g0ftvGLmJE6fqXP1YE85FE99 vJWox8U7nOU0C6RgVZQisfra xigsaTD8EKDnFDIzxQ66Vi8irS eiXl5qBHBjHIU9GEOwjVQsI0Dg wH2hZqKrSOIcWPIsD2WyoMAu FQhhI211CRohLiN7JZFmqvEhT1 JqMYEvwOtcOpU0e1R1Xq5ZPX60 BC46QB95qFPwd4F4yHU1G4St AIZgokwacnucbQF9MPWsBXZjjK 69Ld6bwHxxIv8aPEAxDXC2ODFz qOEmV8WaeV2gDwHqLNDzIQLl N4LomIKrKYkeX590EZsvJdB6WV AorjZdX8OkPSAbpEmxIhL1e2R9 Io8JFm82PK07MT83pHOsw2W8 kPX5P6VvRSNjzrmfoeznmLV5GM EuVREjqH06Js8wdKvcPw0gJMWg STZ0BXKksOZyO0OoqL6sEfRo FNGvWNUvM8JgmYJwHOxvI901NS ggZoV3BRJupeWhW2ObKYUchHjk WdN6h7J4Pd6BGMzaccs2N8Nz PjwvdHI+JM05AOXqHJ46aHTztW Xnq4xahZd9SiCtWUHuZKS2kRwd OWpbt2VgMKCjG46bwVIdc9U3 IGN (more content not included)... [facility] Coding Summary HTMLBase 64 XjizfqdhODl3sHr+PGhlYWQ+PE 3ABJXjK34leOPsiO4YJ0qVGS1E DNLKOXEIGW7NYC3rhUH9ZDpoM2 VybiAv XbxuwAReXY30PJi7TXG8zAhbMS fmiG0kvKDiA8e4JrMkSK39lB83 UAhtXLHaFqX1VsNodawjfDRu M1iqVzXxnYYeOhs+PHRhYmxlIH vmSBErCTfqGMCoLpNpuZadXM5b Ml6yYQZjIYXswSfueDWkTxQs f7nnQQFeEGngTH2xaSifG9XoxP H9JWJrk6i7Vw38kKQ+PHRkIHN0 oOghVOrbg030UdPcs6zgFFP8 dYSqKFviDRQ0S05uc9O2UIOkAB DeTUR9sQU7lM5yjFawqxifT4Gb bICoSmO3RUK7xRDbmQ0nqVff nxyiqF3nJsq+W92CPT4XLWNBTA 5RWir7V4XrDsgcdPA+PY32ZPBh XO35eINzvEIiy0sxrTa8GuMe WYYgFCD1rXtyTMxca3RpLECeK2 4lgEFiq9L2HJTbaJhbkKVgBcSh wLO4lR5pVXumzqpzh4dglyiy Bbkcr3btue47mW11H44tWCkmAV UgIAS0FYZyAMHttSmseg6pmL5h Ii8+CNnzi3fjw0zenSj4MtRf DMOkpyFmyPhqOBA3r0OuAw58W2 KcsTdrf0RgLha9ti29vSTcj3Q5 eBQ5MUykCJHepU4fCCnySlO5 MOXaNnEwjK75cLSlFZioPl8nmK wifQezAJ6zYFQdnubdJBEilQ8j NCGdhCAxmBuhPX3mACNqsbve p007JxXxYTD0RYSkeGSmW2RinJ 6kLjSdMVNpTDHwZ0BnnASkCOna B058IOuzMnO1KZFdewSzX3Vk FGGgwSbfYjX0o3R6Es4Xz9Ykxv whIAE2QGszCTA3KnWpGnRcJbD5 T0LuTos2YOZvlYyuDM0iI2En LPHucebwpsedhRU5PIFhLYMmpK 75lIXcANhfZy6et6N5m090MAMc JAVxkL65Ie5kmTasGMOzbIMP nR8riiunc4dkwxboDvPvZBQmWM l2AMo7ALIfeSsvCpPkCDO2LhQ2 AXQ6tDLfkZ4fwJowlzwadS4e Oyc+Q60nqP5vRLQ1RLS4euimLK OhvtKpQJ36DD23F0HmFwdvyGCw bGU+VNOzpzIelYxtIT2wUiIh e4ohu0CxQHrtO3AfQXRaGQkpXt p6JDVqGXB7tVH3nP0cYVRuDJtj r1D1jUO0X7JfwaOhhb3fc4lp TBTdSIbbI16sxJRgn6A7ZKSwwC K0ZWXmzUfuIzIplD76Afr+PGNv oThph7IeXbmah4kme9duqFx4 YtPvNRQjrqRcuZwfSTX3t2WdDr 25P06gINhdZOGjRFJpPJVnWQJq cYvyxs0mwS6eDb3+PGNvbCB3 tGV3fZ5zCWVhDdM1KQzaQ972Rp IybZLcSnpxq8exm6kxuRc2WqAf BYVtkkIcgGnzLJI1a3YfHj95 B17eJDdrTIDfBSRzQLEjBNSroP ieqf7tzP6zRq9+PZ4ki3dsjp08 oU53xSP+VZBpVPO0xOknOEfc MPUkfY3nDVujRtE5SPMeCeHxzV 62xOQaGAbrSh3vmVqzuTqzEA3z LXFwpxvfh157FpVpb3fwCMLi vFZoTStdCEJ4S45nq2E2ESKaCW RtWIR1iJQ4hH8weQwwbidstMHa uGnmdmRayGjiILenVPoeN549 IHRvcDsnPlBhdGllbnQgTmFtZT k3Q5CaTkw1VBBceUcoXW1lrWUa ZTjrVb3koFkrrDwuMN2cNEWa vwxmc110BnZhj8lwBKXlbXDjIS fhPFZ1S07bw9P1VPIgACYwEYH5 aMV8uE0aaBjehdfdjUIazUpq iiWddFrmWWhvNOneM603CQJctL sqHmRsykZzDGRzzJH0DG94BR41 bBQhw2C0wKU0W0DhVIHuscid pxzuzGU4AJDcLJZloJ47Kr5rhT acOr8iZGIoIVW4KUDljZHsO9Za cL8nQaGhGFFfAIOdM2SthSQo ZOnmD180CTmoMkB9QSOogmEvL1 VnHZLunShtKxP4u7L1Ry0KB3V2 HU31WJ55tBBzi6G6wRM8B7St QRZfyrdvbcrtpGR4KJBrWWVchX 84Ec7jsPzvXd3wKKEnTBL2LIUr tFFnE0RpdF8dLtPlWTDqFNYu R5IbrCQtWVnfQ291KHriIbC2ZF ZesbWrI7ZlFSJobXhzIpA2k0M2 Jd2ZNUt1OD55QX12jDIil6T8 zHK2J8QeFZQhtszpunamlBM1FC WsNGQpmP32Wc6eeCwkQf2uJTTx UGN5JSSpsTItC6FykM0iBuXc OZMhORRyX2FvkAZyIAdnD020GG vuRbT2KCKxusNoM8WpMEMyuQxp YsZ2o3V6Pp6DKKEtVL43JVC3 kEL2UO69KX69N1BmUqkebNJoiM U+PHRhYmxlIHdpZHRoPScxMDAl KlPkxNjtWG5fJo0mAKToWAFu xVlvoEPkMtIjj8biDDAlNNjgGA 1veAbtU0VawXC6RRGff0n8Zz23 M03dA8TifQM+WJViaFZ7vAI0 oY5kWmJeJmP0XMvyQ140OdUbnC JuWzots8xmc8uviJw4QzI4JKAj zzTgeAjkCPV9i4TbBh62Q23g IHdpZHRoPSIxNSUiIHZhbGlnbj 4cpL2zRk5+IOXcjCG8uII8lH7j ZpQyMnC8LJkfW598RbHvxAZu Uouvd8ojh2eksIm6LbUlGMAfpi NpqVjxXTV1w2GdRd45K9CafFcz i7ZpYoc3ru02oJQtx6D0uQI9 T1HtSDHlhceqeXDtxAtmVW9vXL GkgzhpROEjxT6bTAYpL6p1WlKc BjP6KDcaC6IrxvW3TGWafQAh EJkhDEX8H59lj5I0UUCuMDWeVJ X9vQU2iV2zsAygiphkoMAtoUqr yySobGefYSezLWpzV937QUUk lUsoYYOtsP5oHJBpeVKrpHkoSM 4wNTBpbjsnPlNURUlOLCBWSVJH HT1PLRAARAW7G6LiIvo1JTPj yTpmBJ0evWGtEZfrVq2rhNtanC xdVD7zTVDbevfwZPMwgB2pMQYe iYXfeIxsXS7vSPBrukqjy870 RsMlVMZ3JFMfpOTeU5DwnQ4wVb MoRLKqYUThD4NobOObCGgzO696 JEdmTiO3HFYckdKgH1JkIBPl kVbfYsW9i2M0Mx0pSW1iLA8gKS myYM07DF65dUEuc1N8qHA7G4Wm AZGzqipwvfnubET6QGGdZCDd mT35yNXnDNpwOj8zg3Y9k586OT SzKIJdzZ85Ey5aqZwyHWHdjYEE wJ6ocaawc7eyzpsbGqPkCTBh GRx4OJm3GYHhxAryTdPoHCG9Ra D0CCP6gSLuqO0rvSkgfkewxI0c Oyc+ElgfLPThbjV2A2FvKlj1 PROuvBukLA1apETeBTysQo2ipB sncTixKI4hNRGwoikqJBQrmO6a NCHunXRajZegGI1tXRTkcxnd e316YvWhNFS1CWEqbWFkQ7ZtkB 8tKdJrNHCkCCWyC9ZxzMKoXZyz Z431CWwgKlF3GVRkvfRyA7Fy YNHmdKwuQxA8x0H8Ri2GPD8JFD P0X7KiEoj7YINgaOfxOI5bmBUx XNumNv7ykVimgTcdDP3hHSOn ndyxIHSyfJ9nTBSptWMdpRhqAS 6wAFFworlsj028HxUrNBA7AHRu lCJdS8QekW1aOnZcKLMqSTUc S4YhcMKtSSenJ505SUcuIqW3VD NzitMvI8PnXVJjsEeiRvY8e7M2 Ub2AwSYlV0MtH2g4R4UiOqef dHI+SY27HNSfLX03kPVzvAOgh7 ajdLn9XqGuQVRwQPE9aXzhFJye p6CvLFKjL61knRXle5H2LTOl lZztfYWuKhAxoHA0aE2sMPpljb qoh2cmnwglScakw6nzan59pC81 M02qQAxxKGMpCDRqLXLwKCNf wOpogx9tzK7pVy1+NIDhuVY0gP Q9mI7cJxIjZkL6YEnvG067WtKx rBXuSfdqw5kts2whcUj3SfEv EZWsezAibRlvNAI7y7AfUo31X5 9sIHdpZHRoPSIyMCUiIHZhbGln kn9zgQ1wXw5+WF5xp3qxgx35 mA33oTZ+JKPgVLW3aYjoRDoxBU BtqA7jMYfhUbU3HHJvCpUzhW66 dXJcINoyZa1lcMmhqXyyQA7e WHKewmrvv440WnYyc6giQIJkpE BeAErnWOT2C96bs0K7QEMfBDDc QYK9aDO3vV0wcTqgvmwlwYTx rMecohEsvKmnMShmYJxfB524AL OlrIdkMcTozXGsW8nwaoCRFC5a OjwvdGQ+IDSuVNT0tKyeRJau FYQapD8xEDPpQ9p7YcSlBbW8JZ vaD2ZyqwM5SGVjvGWhMBPseGFM cD2uqfguc1wfdcveMpJgDXIc EGt4GDx1YNAabNckDyZhMGZ7Im Z6LFI8kWOpmS5zhFydrhqnrX7g Oyc+RklOOjwvdGQ+PHRkIHN0 qIoqCGllKJLxwR5jRBQjX5k7Zy BqPnO2PZkuF9MwmzK2IQYrpIEn PPVbpXTOpZ7metpua8nurfsq CgHfYSOmLCt2ZGi1GUNehAzkQi BuONQ7JvR1BAP7oLIjcE6krYif jxcsiA0qSsn+TVJOOjwvdGQ+ UVWlLUZ4pVbcQWtyKMUguH0uFG WnN9y9SfAaPuI6YZsqK3ZmnnN9 BCIejYCmGPEokLLZdY1bmegn d7ygqwtiXkCwMRJhHPy9STl7OT UxsJjdRkRkDLK7DkH9XMS8tKCu mN7vaMscvhtkkD2pFdf+UGF5 WRB3DP26WX93D7IiMhfyzPHiqS U+PHRhYmxlIHdpZHRoPScxMDAl KxTqlSehJW9mSj2dUUExMGEe bGx (more content not included)... [facility] CHLAMYDIA/GONOCOCCUS RAINER (SW AB/URINE/PAPon 08-26-2022 Chlamydia trachomatis, RAINER Negative Normal Negative [facility] Comment on above: Performed By: #### R PRQ #### [facility] [address] [place] [address] Dr. Juan Antonio Ibarra Neisseria gonorrhoeae, RAINER Negative Normal Negative [facility] Comment on above: Performed By: #### R PRQ #### [facility] [address] [address] [address] Juan Antonio Ibarra AFP MATERNAL FOR SPINA BIFID Aon 02-08-2022 AFP MoM 1.41 Normal [facility] Comment on above: Performed By: #### A FPMAT #### [facility] [address] [place] [address] Dr. Juan Antonio Ibarra AFP Value 66.8 ng/mL Normal [facility] Comment on above: Performed By: #### A FPMAT #### [facility] [address] [place] [address] Dr. Juan Antonio Ibarra AFP, Serum for Spina Bifida Report Normal [facility] Comment on above: Performed By: #### A FPMAT #### [facility] [address] [place] [address] Dr. Juan Antonio Ibarra Comment Comment Normal [facility] Comment on above: Result Comment: Melchor Chaudhary, Ph.D., [facility] Director . References: Available Upon Request. . Multiples Of Median Cutoffs For AFP Elevations Briscoe 2.5 Black 2.8 IDD 2.0 Twins 4.5 Abbreviation Definitions IDD - Insulin Dep Diabetes OSBR - Open Spina Bifida Risk . For further inquiries contact [facility] at [phone]. . This test was developed and its performance characteristics determined by [facility]. It has not been cleared or approved by the Food and Drug Administration. Performed By: #### A FPMAT #### [facility] [address] [place] [address] Dr. Juan Antonio Ibarra Gest Age Collection Date 18.3 weeks Normal [facility] Comment on above: Performed By: #### A FPMAT #### [facility] [address] [address] [address] Juan Antonio Ibarra Gestat, Age Based on LMP [facility] Comment on above: Result Comment: Reca lculations are not recommended when gestational dating by LMP and ultrasound are within 10 days. Performed By: #### A FPMAT #### [facility] [address] [address] [address] Juan Antonio Ibarra Insulin Dep Diabetes No Normal [facility] Comment on above: Performed By: #### A FPMAT #### [facility] [address] [place] [address] Dr. Juan Antonio Ibarra Interpretation Comment Normal [facility] Comment on above: Result Comment: [...] Customer Services to discuss available options. The [employer] recommends amniocentesis be offered to women age 35 and older. Performed By: #### A FPMAT #### [facility] [address] [place] [address] Dr. Juan Antonio Ibarra [age] [facility] Comment on above: Performed By: #### A FPMAT #### [facility] [address] [place] [address] Dr. Juan Antonio Ibarra Multiple Gestation No Normal [facility] Comment on above: Performed By: #### A FPMAT #### [facility] [address] [place] [address] Dr. Juan Antonio Ibarra OSBR Risk 1 IN 35[address] [facility] Comment on above: Performed By: #### A FPMAT #### [facility] [address] [place] [address] Dr. Juan Antonio Ibarra PDF . Normal [facility] Comment on above: Performed By: #### A FPMAT #### [facility] [address] [place], [place] [id number] Dr. Juan Antonio Ibarra Race Normal [facility] Comment on above: Performed By: #### A FPMAT #### [facility] [address] [address] [address] Juan Antonio Ibarra Test Results: Negative Normal [facility] Comment on above: Performed By: #### A FPMAT #### [facility] [address] [address] [address] Juan Antonio Ibarra VAGINITIS/VAGINOSIS DNA PROB Abdirashid 02-08-2022 Jeremy species Negative Normal Negative [facility] Comment on above: Performed By: #### A 1C #### [facility] [address] [address] [address] Juan Antonio Ibarra Gardnerella vaginalis Negative Normal Negative [facility] Comment on above: Performed By: #### A 1C #### [facility] [address] [place] [address] Dr. Juan Antonio Ibarra Trichomonas vaginalis Negative Normal Negative [facility] Comment on above: Performed By: #### A 1C #### [facility] [address] [place] [address] Dr. Juan Antonio Ibarra ABO and Rh group post transf usion reaction Nom (Bld)Ordered By: Eleazar Hess on 02-06-2022 Microscopic observation Gram stain Nom (Unsp spec) [facility] ED Clinical Summaryon 2021 ED Clinical Summary [facility] Emergency Department [address] [place] [address] ED Clinical Summary PERSON INFORMATION Name: ZULEIKA WYATT Age: 31 Years Sex: FEMALE : 1990 MRN: Acct#: Visit Reason: Rash; Medical problem - minor; POSS BODY INFECTION Arrival: 01/29/2022 20:27:46 Discharge: 01/29/2022 21:17:00 LOS: 000 00:50 Check In: 01/29/2022 20:27:46 Checkout:01/29/2022 21:17:00 Address: [address] [place] [address] [address] [facility] [address] PCP: Andie Stoddard PROVIDER INFORMATION Provider Role [...] follow-up with their family doctor or their [employer] doctor. To this they agreed.. Health Status [...] Current Fr (more content not included)... Normal [facility] ED Note - Physicianon 2021 ED [...] follow-up with their family doctor or their [employer] doctor. To this they agreed.. Health Status [...] Once. Impression and Plan Diagnosis Sebaceous cyst ([id number] L72.3, Discharge, Medical) Plan Condition: Unchanged. Disposition: Discharged: time 01/29/2022 20:59:00. Prescriptions: Launch prescripti (more content not included)... Normal [facility] ED Patient Summaryon 022 ED Patient Summary [facility] - Emergency Department [address] [place], [place] [id number] PATIENT DISCHARGE INSTRUCTIONS Patient Information Name: ZULEIKA WYATT Age: 31 Years Date of : 1990 Reason For Visit: Rash; Medical problem - minor; POSS BODY INFECTION Arrival Time: 01/29/2022 20:27:46 Primary Care Physician: Andie Stoddard Attending Physician: Johnson Wright DO Comment: Visit Diagnosis: Diagnoses This Visit Medical problem - minor ([id number]) Rash ([id number]) Sebaceous cyst (L72.3) The Pharmacy at [facility] is open Saturday through Saturday from [...] alcohol and/or drug addiction problems; contact the [facility] 07/01 Crisis Hotline -Text 5TCBZ yo 112265. If you received any narcotics, sedation, or [...] sign any legal documents With: Address: When: nAdie Wyatt [address] [place] [address] Business (1) Within 3 to 5 days Comments: home warm compresses clindamycin for antibioitic see your ob, or Dr Wyatt, for recheck apt ----at some point, this might have to be removed; this is not cancer, but a retention cyst of fat material; Return if very red and tender, or fever, vomiting worse You are welcomed to return anytime. Call Dr Wright, ext [phone], if any question patric WRIGHT< ER PHYSICIAN< Heike Jones [facility] Medication Information: The exam and treatment you received today in the [facility] Emergency Department were for an urgent problem and are not intended as complete care. It is important for you to follow up with a doctor, nurse practitioner, or physician?s assistant professor of business for ongoing care. If your symptoms become [...] so we can reach you if necessary. [facility] Emergency Department has provided you with a complete list of medications post discharge. Please inform your diamond grader/provider of your visit and for further instruction [...] Epidermoid Cyst (more content not included)... Normal [facility] TYPE AND SCREENon 12-30-2021 TYPE AND SCREEN Antibody Screen NEGA TIVE Blood Bank Notes performed by CV on 12/26/2021 ABO Rh Typing A Rh Positive Blood Bank Notes performed by CV on 12/26/2021 Normal [facility] Comment on above: Performed By: #### R UBIGG #### [facility] [address] [place] [address] Dr. Juan Antonio Ibarra HEP B SURFACE ANTIGEN SCREEN on 12-28-2021 HBsAg Screen Negative Normal Negative [facility] Comment on above: Performed By: #### H BSANS #### [facility] [address] [address] [address] Juan Antonio Ibarra HEPATITIS C VIRUS AB W/ REFL EX QUANTon 12-28-2021 HCV AB 0.2 s/co ratio Normal 0.0-0.9 [facility] Comment on above: Performed By: #### A 1C #### [facility] [address] [place] [address] Dr. Juan Antonio Ibarra Interpretation: Comment Normal [facility] Comment on above: Result Comment: Nega tive Not infected with HCV, unless recent infection is suspected or other evidence exists to indicate HCV infection. Performed By: #### A 1C #### [facility] [address] [address] [address] Juan Antonio Ibarra HIV 1 AND 2 WITH REFLEXon HIV Screen 4th Generation wRfx Non-Reactive Normal Non Reactive [facility] Comment on above: Result Comment: HIV Negative HIV-1/HIV-2 antibodies and HIV-1 p24 antigen were NOT detected. There is no laboratory evidence of HIV infection. Performed By: #### R UBIGG #### [facility] [address] [address] [address] Juan Antonio Ibarra RPR QUANTon 12-28-2021 Rapid Plasma Reagin, Quant Non-Reactive Normal NonRea<1:1 [facility] Comment on above: Result Comment: Plea se Note: This test does not meet current guidelines for screening and diagnosis of syphilis. This test is intended for following treatment response in patients being treated for syphilis infection. To screen for syphilis infection, a reflex cascade that includes both RPR and a treponema-specific assay should be utilized, such as Treponema pallidum (Syphilis) Screening [place] (401779) or Rapid Plasma Reagin (RPR) Test With Reflex to Quantitative RPR and Confirmatory Treponema pallidum Antibodies (218327). Performed By: #### R PRQ #### [facility] [address] [place] [address] Dr. Juan Antonio Ibarra RUBELLA AB IGGon 12-28-2021 Rubella Antibodies, IgG 3.48 index Normal Immune >0.99 [facility] Comment on above: Result Comment: Non- immune <0.90 Equivocal 0.90 - 0.99 Immune >0.99 Performed By: #### R UBIGG #### [facility] [address] [address] [address] Juan Antonio Ibarra CBC AUTO DIFFon 12-26-2021 BASO # 0.0 103/ul Normal 0.0-0.1 [facility] Comment on above: Performed By: #### A 1C #### [facility] [address] [place] [address] Dr. Juan Antonio Ibarra Basophils/100 WBC (Bld) 0.3 % Normal 0.2-2.0 [facility] Comment on above: Performed By: #### A 1C #### [facility] [address] [place] [address] Dr. Juan Antonio Ibarra EO # 0.0 103/ul Normal 0.0-0.7 [facility] Comment on above: Performed By: #### A 1C #### [facility] [address] [place] [address] Dr. Juan Antonio Ibarra Eosinophils/100 WBC (Bld) 0.4 % Critically low 0.9-7.0 [facility] Comment on above: Performed By: #### A 1C #### [facility] [address] [place] [address] Dr. Juan Antonio Ibarra Erythrocyte distribution width (RBC) [Ratio] 13.5 % Normal 11.0-15.0 [facility] Comment on above: Performed By: #### A 1C #### [facility] [address] [place] [address] Dr. Juan Antonio Ibarra Hematocrit (Bld) [Volume fraction] 38.9 % Normal 36.0-48.0 [facility] Comment on above: Performed By: #### A 1C #### [facility] [address] [place] [address] Dr. Juan Antonio Ibarra Hemoglobin (Bld) [Mass/Vol] 12.9 g/dL Normal 12.0-16.0 [facility] Comment on above: Performed By: #### A 1C #### [facility] [address] [place] [address] Dr. Juan Antonio Ibarra IG # 0.03 10e3/ul Normal 0.00-0.03 [facility] Comment on above: Performed By: #### A 1C #### [facility] [address] [place] [address] Dr. Juan Antonio Ibarra IG % 0.3 % Normal 0.0-0.5 [facility] Comment on above: Performed By: #### A 1C #### [facility] [address] [place] [address] Dr. Juan Antonio Ibarra LYMPH # 1.4 103/ul Normal 1.2-3.8 [facility] Comment on above: Performed By: #### A 1C #### [facility] [address] [place] [address] Dr. Juan Antonio Ibarra Lymphocytes/100 WBC (Bld) 14.5 % Critically low 20.5-60.0 [facility] Comment on above: Performed By: #### A 1C #### [facility] [address] [place] [address] Dr. Juan Antonio Ibarra MANUAL DIFF REQ NO Normal [facility] Comment on above: Performed By: #### A 1C #### [facility] [address] [place] [address] Dr. Juan Antonio Ibarra MCH (RBC) [Entitic mass] 29.6 pg Normal 26.7-34.0 [facility] Comment on above: Performed By: #### A 1C #### [facility] [address] [place] [address] Dr. Juan Antonio Ibarra MCHC (RBC) [Mass/Vol] 33.2 g/dL Normal 29.9-35.2 [facility] Comment on above: Performed By: #### A 1C #### [facility] [address] [place] [address] Dr. Juan Antonio Ibarra MCV (RBC) [Entitic vol] 89.2 fL Normal 81.0-99.0 [facility] Comment on above: Performed By: #### A 1C #### [facility] [address] [place] [address] Dr. Juan Antonio Ibarra MONO # 0.5 103/ul Normal 0.3-0.8 [facility] Comment on above: Performed By: #### A 1C #### [facility] [address] [place] [address] Dr. Juan Antonio Ibarra Monocytes/100 WBC (Bld) 4.6 % Normal 1.7-12.0 [facility] Comment on above: Performed By: #### A 1C #### [facility] [address] [place] [address] Dr. Juan Antonio Ibarra NEUT # 7.7 103/ul Critically high 1.4-6.5 [facility] Comment on above: Performed By: #### A 1C #### [facility] [address] [address] [address] Juan Antonio Ibarra Neutrophils/100 WBC (Bld) 79.9 % Critically high 43.0-75.0 [facility] Comment on above: Performed By: #### A 1C #### [facility] [address] [address] [address] Juan Antonio Ibarra Platelet mean volume (Bld) [Entitic vol] 10.0 fL Normal 9.5-13.5 [facility] Comment on above: Performed By: #### A 1C #### [facility] [address] [place] [address] Dr. Juan Antonio Ibarra PLT 194 103/ul Normal 150-450 [facility] Comment on above: Performed By: #### A 1C #### [facility] [address] [place] [address] Dr. Juan Antonio Ibarra RBC 4.36 106/ul Normal 4.20-5.40 [facility] Comment on above: Performed By: #### A 1C #### [facility] [address] [place] [address] Dr. Juan Antonio Ibarra WBC 9.7 103/ul Normal 4.0-11.0 [facility] Comment on above: Performed By: #### A 1C #### [facility] [address] [place] [address] Dr. Juan Antonio Ibarra CULTURE URINEon 12-26-2021 CULTURE URINE Culture Observations : LIGHT GROWTH OF MIXED GENITAL ALONSO. NO POTENTIAL PATHOGENS SEEN. Normal [facility] Comment on above: Performed By: #### R UBIGG #### [facility] [address] [place] [address] Dr. Juan Antonio Ibarra GLYCOHEMOGLOBIN A1Con 2021 ADA RECOMMENDATION SEE BELOW Normal [facility] Comment on above: Result Comment: ADA RECOMMENDED LIMIT 4.0 - 6.0 ADA THERAPEUTIC TARGET < 7.0 ACTION SUGGESTED > 7.0 Performed By: #### A 1C #### [facility] [address] [place] [address] Dr. Juan Antonio Ibarra Glucose [Mass/Vol] 114 mg/dL Normal [facility] Comment on above: Performed By: #### A 1C #### [facility] [address] [place], [place] [address] Dr. Juan Antonio Ibarra HbA1c (Bld) [Mass fraction] 5.6 % Normal 4.5-6.2 [facility] Comment on above: Performed By: #### A 1C #### [facility] [id number] Juan Antonio Ibarra US PREG TVon [...] FELECIA GOLDMAN Date: 2021-12-07 16:59 Normal [facility] Coding Summaryon 11-21-2021 Coding Summary HTMLBase 64 FodegsrtVTr6kBt+PGhlYWQ+PE [id number] YDBFCLRYLV8OVW4hlMB6BCssC8 VybiAv DpixnZHgZQ06NUs6OTI4jEyfWG ginI8rqDWlE0w9OtCfOH51rP42 PHsoEDKqWiH3OtKyethrzLYa U6qeRmScmRZbOdo+PHRhYmxlIH zjFDMsLRvoTFZtApEhuJabRB5s Hu5qRYHuYNXewJzqeGAnTtBv n6wjDQZcHYfrCZ2qtAgsI1EkkW D8LIQkv9k6Zf05wQN+PHRkIHN0 wDzlVUtiw910YsLre6egSVA0 pFWuHLimNKD1U76sj2N1WALnRC WiGQZ1nFE6mC6bnAtvckwvO2Ss tFTcIhK4CIW6hYTgoQ5lvAbj xbxhcJ0iKhe+U93XAW8NZYIPAY 7SLlu9N5PtGghvfNW+FM29ASFg WD81yTBpmJXow3zloYr5SgVt EJWgUSN5wAghTHlhx9OzYIWcH2 6pnWQti3S2LIIziOyueQEgPdVp sLR9kA5nHNccufxfx4cqjagt Andor8gaxa00qQ07E23zJCafBA PiMDI7KJZlXDSpuUygpm7avB2p Ii8+TDirh6fzy8lkgOp1QuQi APYnfyBzbQctSHL6i9QvOe71W3 KvfRtje7RpUzm2qx89vQAxx3I5 gKZ2TGsgTUUosE1xZDaoXpC4 KINdCiWiyR17fSNqBNjoRm8lmZ nojJuiLI8gGTGtbukgCDSrtS4r ISYfkBGxnEilCY1bTQXratez c861KzAhQYU1ILSejTJtA6ZqhZ 1uCyDvLSJiNYDrZ4KwsAKuXUhn J202CXeyRdQ8QSFcefTaZ6Cg YBZqhOjrAaN8b7T5Dx6Es5Bgvy jtFFB8YIfxNYV7BlI6NpEbMsZ6 E5PpRxe0CMFrtGceIO3kT5Ol HGMxfegbbvwzoRN4RXEtQSStvZ 91oBYsLSctLu6av7Y4f149MWIw WRYiqO84Bx8weEyhESFhiNQC iG0wbttsu7zojckyDqLjSTGdYA m2CVp6HBRaoTepWaNbYIA9ByQ6 BHM0iFZmrH4yfWibsnsjsD0b Oyc+I66ecW6jOBN4OAJ5igvjZB QbkgYbOM34YS70P7HdNzlegEIm bGU+ALHuugYucNuxGN8fNwGu q7wdz8ZnQQexU3CgLEMrIIrwWh j2ZTOfPIL6uLZ6iI7xQIGyBKnv a2M9oWJ0C4MbeaPluh7zz6wb DEYgABepU26dxAIom1E6POYrbN I7HNEriDulXeUpuY31Pjt+PGNv mBkwp9TkOhbbe2lvv5rocUd6 UePiBYGmumDxqRmoVQD7t1JjSl 92V25hKCnwSDKtFMZkSDFsAZHs kSznfx0ggC6cLk8+PGNvbCB3 pRA8xA3vMLNkKdH6SZziI812Un YkfRLmZcopj4nih3ldmBy5BbHv PNGsvmJmuWprGWM6v0XdKz23 A10oEKstGRAxYCRbDCYxYRElvQ agkd9xqM2eGw7+SW3ge9slye80 fW08dGC+SLHnFHF0gMmiGEuo FWRtzL4aICkgSrU1GQWlFmVrpA 86qXHlLOwtQh4wvZjtuDhdZC1b URLrrnsrc850NuTta4aqOSQu hEAeKUkzPWQ5L18wt9K8JLQdOR NnWIP2qXW0zV0neZwizwlizUZz fJqttlKnfYsdMEaaREhvD488 IHRvcDsnPlBhdGllbnQgTmFtZT e2F3JkRuw2MRGotFxiOS5gdPOs PLuzEk9xdCxotMyeIC6zQUVu crdzu602IrXbf7hbUYPrgYMaLJ jpVDI0A81kt4Y3VHCyZAIeQYH0 rVD5nN9kqRttkuuxnUSydGce akHphIoaCFaiBIodN818IMMgxG dwQjEqmgTtGJZuvRV5JW91NT59 lBMhd4R8oSZ2N8DoYMFwrjds qkbwdYM9ZPQgLOSnaD47Hc2vyR acUk5rCRVyGPI9IZYlgRWgW2Ia nC2jJjVyCQVxZMPrL2UktZYi SHhdM833RJaxQyZ0LLAxwxZwX3 AvDLJmsNufEbK3q0L1Df9QO8F6 GT59LZ55aRFbe9G7uQQ2C1Lq BBTzmtmhsucnfIA4BBKhRQSzuP 99Nv5nlNphVe9sZJGuDWK2UMEf iMTcJ3OolX9gCrNbTCZpQOIo F7UbmCFbSNruF550IBnrGzJ7HH XgdiErF2JrJLGsaTlwTvX5p8V9 Oj4IKLc9PO38TB67iQAaf0C2 hNF8Z6GhHLVkgdcmvzoasIN2BE LwAKIdhZ96Ln8ugLoiOq6lIOIe FJB5GEBvwJDfH5ZrmW2nArUj LGTsRTSiX4MhmGXzUOquX075PD azMmV1CMVtlpUmJ2RoYUZlqAzu BgD0c4N6Im7IKJSpCK90PRX2 iXY5HF81YX55J9DxSsdysSFhoE U+PHRhYmxlIHdpZHRoPScxMDAl XyBbjDagJX4mOv0zBBUlKQDj rCubyUTzNfBeq0mzOMBqGUnjNI 6hgCeiV9UwzRT4EGEoo2p5Zm97 W47fR3HlaZN+JSCqoTD1fVB2 bH6mIbEiJlW6NGpjG218FqXhzL VjCxmuq4zvp9vadAu5QaT3UVVo mbSkjHctEJS4v2FmTt75I38f IHdpZHRoPSIxNSUiIHZhbGlnbj 2xtB1dLn9+LMGifXY0gNE5qP1v YxEyHvY0PUtqT189LeEbmEZe Djjxv0upp3sxwRd7LoMkFYVfhm MbhUhmTYG7h5LiJp60R4ChqAgc v3HgXpb7yj60bHYwc4A3xUE3 S6YeKVKhetzntATbuCduQR1lBF JmuyqtYGIwgU6rZXTaD5f6KqMz YuV5RPuvW5CgmmT1SHBxrMZt XMsqHVX7X70cy9Q6UMOiSDOxKU G1sZG5jC6koSscflhrsNBmsLiu rlWjkGkiONdjHAmsV020MHPn fSqvIHRzsZ4pBZUjmMDdyUzhGN 4wNTBpbjsnPlNURUlOLCBWSVJH QS9SXGIXYQN0W0WsDpr0ZYHo zSziFW3gnMZoJVmiZi8asOtsgU huKC8cMKPvbbveUTIneW9hPVXi oQQcfViuVI1vYHOapfgcy655 FaXsCLW3OWStkLMkT0ZyyB4gRk BsAFEqZPPrI2GfxHSlMUvtA581 CIjvDeW2HELadgSxV1NcHRFp hHmlKkQ0j5P4Yx7rAT3vEK6qKU olJF47AA12sMUuj1B5wRR1K5Pl ZAVrjvbkjkiicES4QTAxFUAh uE67mAJyXKazKb8rj4J1h040NH JmRYPedD92Wf1udLsbVCYdqUVI lX3eswowi2pdugozOdWfYQRv IDa2DRf6YPSqjGloMxOoSQM3Hz F3SBS8mDRmiJ5noQsujvigdW2k Oyc+VmjnQTTyydL2N4EyPte2 CDVpdVkdEP0zvURuTFkyEr1aiE gkoZeiMD4iKWSlekfaHOAogM5d WXGutFNqbGscCB5mGUPgcfrx u447DrSqQPZ3JARixXYzN2GfxJ 5rObEzKSBsSUAdT3BlqUHxBVhz V082YMrmUlQ9VPAzfxIyM1Ow UQBgpCbuWvT5s9S0Uw6IJE7DMS R8S2OiInk8NBDuxJibHM3oxAAu VVmgVx8ziQkllBusGL1tMZAt shhpDYGcoP8cKSLoxILhiFmfEB 6tNJDukewci326XgGmSZB1EYTt rQMbJ6VndP3gMqHzXYVqIMBe C4AqoJEbYJihX620TTmxMeT0DW FsckOaO5GrZIQhhQihQeL4f2S4 To3QJEoqkBB+GW06xg05V6Xf ZchbFbe3IJDnHLR8sWO2wY3dCS JdIFvmh2X6kRA5W3CfrvWjwz7l r9iwNAIaNHgyA34aiWVcs2T1 OHAjnXQ2PLAkmJidSzDdwW10Yd c+KTWxrVpwj7QfCxjin2eys8wu iAa2LcSkHNGkvcNnyUfxQXL7 g7WfHa26D25nQSpoGIMwRNHfAL ZfYCNgcQuxti3ueY3bUx9+PGNv bCM3iLA9xL5bSwVfTeX1ZBsy M045LyNfuFTxNgslj5fvl6sitS g1SsUxUXBzckNnvNwuOAG4c9Gy Nq83R6DnwIhoc7IdJde1ea81 lJVig3A7cWD1N4YfEACvhfcknB ZyjAanIG2fATTicsaeDNFbjS2e NWMkJ0w8LtHjPaU6QCgiW0Sw rzS9INKsoYEiAPFmwBKCkK3ijx fbj9abaaulMwYnIFDxGKm9XEs1 LKXvcExeJjBsLTP2LbF3SUB4 qYCycK4unJzxanxtzM4cPdd+UG n1h1higYSjUX9phIQ8AM85HO54 tWCha3O4kNP7Q2RfYRTtddva jgnqvRG7CNIdAKKdsR27Gj2dpY clYk9bNTSyJQX2QXPhlKNlJ0Lv nI0pSnThIXCyBYFlH3RzkXNc BFpxE309KFjsXlX6IDXloyMuN7 SuSZXitNjbHrO7k2T3Yb4VOR23 KJ63OD62iNTee8Y8rHR9G9Dv GRWyazfbiljxcST4FKVsUZUcdX 10Vl9rpKvnKs8xZHXjXPL1CIEm aIDgK8XykJ8eCoOsYSUqTPXa L6GzvAQhMDwnZ278OYvzQhA8BH XqkbLvK0SvMOIbuBkmKuY4x6G5 Hf8TSn96BX53GP36lLZpg0E2 cBE3Z8SqBGGwbnkymiximME5IA AvWIWepH79Lk3hgHswNf3vBRLx TYB0TLMemLGiM1TalQ3zAxGr THWjZOJiO6LrfAXiXXblF735XW mjAyP2RQEmluYpR2EtXYIekNzs ZvO5b4S1Fl2NFAexvpi9J7Am PjwvdHI+BU74BFAsHS54oFKdkG Kqr8euuQs3TsHkLOUmJHZ7eCzd KAbnl3YaYTPiB40vhITev3W8 IGN (more content not included)... [facility] Coding Summary HTMLBase 64 BrtheetfFSa1dUu+PGhlYWQ+PE 9LMBLgQ61heXSnfF4JM2nMRH6B JBUMXVSRHQ0GQT9niGE1XSgjK7 VybiAv RihhfNVqZM77PBw8VWV7gPwnLO riyD6mcOTvW3w3QeBfRE65hE74 ZHwiMXNoUoM2YwChoehmyLPn R4afLuGhdLBzSde+PHRhYmxlIH igAVMeWYqoMENqVrWvuXdeCO1z Sl5cOJMgIGMgqAnzzNInDaFc w0gnLHDpKLooTI1gaPejL4NtbG O3QDQsm6o3Ff17wMR+PHRkIHN0 iCntPTynx363MmPhq4cuICB9 xEKbYKslYHK0E76aa2R5MHTmZS ItKQC4eCB6hQ9jtTnrzdxxA7Ve iOLnKsF8AJM1vIFxxS5yqFuw rpwybD8xWym+P63ZJV5HEINCJK 1VMdq2M4WnXycdjUD+CB13MDAd KA33uPVxrORmu6yvtBg1ZlTy ISYlPLR5sJseDVnpn0UsABPyZ0 5ctHEwt7P8JSFtsMybsNFhDoLj dJT6oV4xZQihfcyod9sfpula Vsfgf1kcya76tA33Y79gZHuzCL QtHTG2PKDcAQBslUtnza3wiF8n Ii8+GEpbk9qlg3wgvAw5LbIk CWZfcgEtxOzuKFI5i9JlDf48T0 ZorQzhi5QuHbi3nt52uXXfm3Y4 gCG0OXgyWWLmxQ6nNSpjAoH6 MVJbTbEwwV75hJMkBXteKk1zfO dyvSojYR7nULIlctdzXFQciO9d EOCclZRbnAlnMM2jMDGcygmt g364DbAtRJO7OQMuhNUrD0RitF 3oCwNmKTApTZWyR7CujRTfOTgc Q093LXdlXlU9CYJiqmRyB7Yt LTLmuClvXzN9j7C7Jk5Qr8Szyx yoLFA4HRtdIIV7GmV9CcCxXtR4 Q6FqTcj0PDLqtQxyUY4kO4Rb VPAlqilfhhfjgVJ9NBYrKGApnK 02aWKzIVgaRk9tp6M0y318RZDu LPOxnN73Zl1moQopNCFubWGC tQ3laoznk7ycmanjTpHaUZUzXC z0PGs5RBAfcDyoZsKkBIQ3RrG6 GIF0dQUuaR2adJyrrseddA5j Oyc+K80lpF2cDGZ4CFO3naaeYO QbayAeCU65OF58N2RhZhicmEGh bGU+LHTqnbDtvQygTB9xBgUm x6iet7EnKQwbC1XxUQLkDKnnYl n3TLViNLJ6tSN1oV6fGPIqGRkx c4J3mML2R7DldwTmya3qk2vg MJInDSqjQ51ooNNmk9U0JWBgoK P4VETvrLumXcQrqR06Yyj+PGNv hZlie1AaIyosg2dcu9occRm6 GdNnIFZqnkXxvNozZVK2l8EgOi 15H14oFEbmQCVmTSQtRATpPKSx lFisul4bvE2iQm0+PGNvbCB3 mKN7vG8aGCLtKxP5DNznD430Ms PheQNhZfvwp2yap7znbXe4AfLh SVPluqLrsEyuGWF2q0UhBl34 X39jANptCBVuIYRlOZQtMYUbmV ejmc2bqN7vBs4+TU9wp2bolz74 rM86zTF+OFAzSFB4yKseJMte WOToeP3yRStgOoK3MLXtErWwwX 12nTUtETlkZn9qhYsmcJeoTI8x HTUpofhhx704DiXyb7pqQRVe xXAnXXyfFPK1Y54oe0V8HTOuBF JzBKZ0xCR6yI4srFdxvnrfxKQf hBnfdrSvfFpjXPatNOpfG781 IHRvcDsnPlBhdGllbnQgTmFtZT m4T0FhIld8KPLnsFuvAQ8kaQRl WUkzIv0lcQpvtHvdVQ6vQIHx qttgh171GfQwf0evMSTitBDjNC erJSR4W28tl6U6FZLqIOLuKTN2 lNH8bM0cqBxccmeugNPbnYok fxTibZjmBGukNGpmG836JOEjpQ qkUcHahxIcBOWcpES5CO22WY90 vOWqv9T7yIV1I5QySKZsbuin yjrwuHJ9JIXrBDUslO89Ob7dcB mxSw4mOTIlVIA6KTQphJXsH8My zK2oWuPqHFXeLPOjG3WgeBSf CVhzM045VNieAfW0KSHsyfYfG4 AfDNEjvEtdRaS9m7D8Or4TS7K1 XB82AY98mDYqh0P5oNO2I8Yj HNFfetuhprqesHF9XJQqMJPujH 07Sy2fsRykPy1kEKOnFKT1XCSs rKRrK2XnkC0aYlNpVXNaOQDm Z5KlmOFjYWmvZ564AOroImA9TB XccvYkK9XzSPUeyErbFvO7g8Q0 Xv7YYDx9GX44CZ65qKZgx1T1 fTK8F8MgLHKkcccicojfkFI3WG QmJKCukC41Zk4ipLvbQr2tUVSv EUU4SEWwaRPoK9MefF8jZpAi HIGlFXMeS7DvkFTxVYzgP071YU gaEeD6YPSufeFuX1ReXUMcvHmu FjI6j2S8Kg6VJOQpNP23GUH6 pVM1BU22US61W0FwRytlqPEhyQ U+PHRhYmxlIHdpZHRoPScxMDAl JjGtmAgxGU2jLc0uJISdAPLn jTzcsDDzLhJlv3dyTAOwVJymGJ 2yzRseT0AvrWN9RGTra9w6Hl51 B70jB9TzjEM+QPHmbCA5mUM7 eY3vFpBfAoE2FNilK755UzOvxP RsDxwvu1sli0wwjEl9TkS4MPYn kpYwxQyiHSA7b0CzEx89O56y IHdpZHRoPSIxNSUiIHZhbGlnbj 8azA7nHj2+CULmsDU0vUL6dJ6j VtWwPrL5KMzoN261XxLugWSh Sansm5ncb4oscVs0PjLtPEKiyw VuqPauMTI0t0YyPh37L3IbvKwh w9WaGqh3ny47fVTtx3Y7rJC4 C3DvFYYgpyfxiQOqjPqnKB1eKF BxviflUOCeyL9zYWXiJ3o4QxHo KrX7DTwwV3LqajY2WZKbdXVu RXnzUEP7X77mt6J1MDZiMBMdTX W6pWL2hT3mbDppgefbgXQnqImm pnRcrEamJEhjKLbcD426DEHz kQrdILVjfB1kDZZjjNLipKspME 4wNTBpbjsnPlNURUlOLCBWSVJH XX8BUJRKMQU7V0LmYag0SKFa uPguUT0wxSBtYLzvBz0pgPaupG ipGA4pXTPhzeugCYXnqZ9tCIDm jAGouFiuCK6cSPXelpwhf832 FuNrXTG6HOFvwDFjT8SjfD3zUe SuKYMrVSBnI9PviOPiSWgdB168 CGipOsF9GULrdmXxJ0WaUTQe dFyeAfQ4m1P3Yt5xLW2nWQ4pHM awRD44UB26pDAdi2N2nST4N6Bi CZQindcwyhrdqAE8KEHvIYMg fK79zNRjSWvzQp4xm0K1b016IX IhDYAhzV63Fl0ynOphISRqnTKM cM5gdiifg6eptqvtUjTcLBRx OOl2LOv6IOQgmFkgEbHgFLI7Ni F7DUB3zBEpsD2zfKmilxzddP9f Oyc+RqjdOWGpbsJ7A8TeHym0 LDJbsIkqNL7jqHDyOCihLn8imD dhqMtuPB8jRUNukbzqRAZdjM4k RAYvvTHcuGxnQQ2mQEJsjmdc m482NxCtTRU0ZSTrlSHbB4UffW 7iCiZoSRJuOWMsQ0NsbWPdOWyl O189NKcdJbG8TCHysbTzP1Ll WEHfwJpdNeH6y4B6Ru6EYV4XTL N7F5IgKrh1SXSdgWqdHG5xlQHh KRitZj3kyJwrtZwfUW7cQHZa dmxyDQIdvG7eDTHafQJxdGuhSB 2vXVEzrmcgk273WpWoYQH7JOCl zIXcN2CjvK4aIaAxCUJpDIZz L5UbiUSoGGlhM037MPonFqI4KO SwbbWzV0FoFBKwdDidLtV5w8H8 Lq3JgNBfG9NrV7d9M3KfPlga dHI+RV78EOYyYX55aRWkwQEzh8 nzhWn6TpMxSUGxZIZ2cUfcMCri r8VrMXCcP64vzBHni5R9DTZh nHhoiDCmQiApbLW4dT4sOTlqot uaq4gcoiodRwhui6knsw08tV51 Q73fXNyzJNFgULUpGFXtPXEx pZcnkk2kzI5jKb8+MBHjcIC7dM V4tR5iHsRcAyW6WFnbA113KoAm rPArPilcw9tbm2rpwCu2HmMg VBDaccCvyKnpDAA2a7EvQw06M7 9sIHdpZHRoPSIyMCUiIHZhbGln zz8vlN0lCb3+QS6rp1frra63 nP97dQM+HETjGRI7kTckVKbeNQ GpqY5tDGujVpV1LKUlZqBwxU11 cEBaOBejTj8oyDolvHbdHD7c AFBqktalm765RdOmk7eiITQseL DoDDukIPI7V55xd8T9IDHxHGCa PQY4dOZ1jH3inPpajcchhWRo hRlgbwYhjTcqGEwkHRxrO636QW UvjNtzGcZalGPwG2yvdhVQGD9c OjwvdGQ+TONiIBS4rCrpIJgg KQXgoZ0oBUZvO3e6ElKiUnB4OD goF7DblvN9HCAydWNkFXLgqUYZ xH5sisnlw4rzuhciXlVlBLZp TVg9YCe2EXJwfPckLsHyWUC6Mv R8HRB6lWLwtE7lmSncqkxwgY1y Oyc+RklOOjwvdGQ+PHRkIHN0 nCzlSYxiJDPswN2cNVYkI2r0Yf HdQbU2VZowP9FexzU4JQZjvJGh BSReoJRVvP9kbudty9hqnjoq GcYzUANdAQc1PSm1SKWavZbvUe JpBPS9XrG7OCM4sASfuC6uqGbd mpdppZ0zUnz+TVJOOjwvdGQ+ ZNRlBRP1aZyrZMtnCPRmcA0qOK VoA6i2OwMvVfG0TXvnD5QfdjF3 PFNvuPPvYSGqbLRCzP5bihky d3zxhiabCmFcYKKwEYi6NCw9ZG SoiJeoTcDiVXH3MwL9QEW0mOPq gK8ncTluurbblL7yKtu+UGF5 RZA9BH01SF28Z8HuDxflsJXruQ U+PHRhYmxlIHdpZHRoPScxMDAl UqHfrKtzQQ1qAj4aKWSrPOOj bGx (more content not included)... [facility] ED Clinical Summaryon 2021 ED Clinical Summary [facility] - Emergency Department [address] [place] [address] [id number] ED Clinical Summary PERSON INFORMATION Name: ZULEIKA WYATT Age: 31 Years Sex: FEMALE : 1990 MRN: Acct#: Visit Reason: Rib/trunk pain-swelling; ABD PAIN Arrival: 11/13/2021 16:30:24 Discharge: 11/13/2021 18:01:00 LOS: 000 01:31 Check In: 11/13/2021 16:30:24 Checkout:11/13/2021 18:01:00 Address: [address] [place] [address] [address] [facility] [address] PCP: Andie Stoddard PROVIDER INFORMATION Provider Role Assigned Unassigned Avtar CHRISTENSEN, Johnson Barton ED PA 11/13/2021 16:34:49 Alfreda RN, Regina [...] Follow-Up: With: Address: When: [address] [place] [address] Within 1 to 2 days [...] results be sent to Dr. Ortiz, your [facility] physician. She will contact his office tomorrow [...] Patient/family/caregiver verbalizes understanding of instructions given Comment: [facility] ED Note-Nursingon 11-13-2021 ED Note-Nursing pt arrives [...] 6 with steady gait and no assistance. [facility] ED Patient Summaryon 022 ED Patient Summary [facility] - Emergency Department [address] [place] [address] PATIENT DISCHARGE INSTRUCTIONS Patient Information Name: ZULEIKA WYATT Age: 31 Years Date of : 1990 Reason For Visit: Rib/trunk pain-swelling; ABD PAIN Arrival Time: 11/13/2021 16:30:24 Primary Care Physician: Andie Stoddard Attending Physician: Gamaliel Wyman MD Comment: Visit Diagnosis: Diagnoses This Visit Elevated blood pressure reading (R03.0) History of abdominal pain (Z87.898) at early stage (Z34.90) Rib/trunk pain-swelling ([id number]) Prescription Information: If you have been given a prescription for narcotics, seek immediate medical attention if you have any difficulty breathing or any sudden status changes such as confusion and sleepiness. If you or anyone you know is experiencing suicidal thoughts, mental health, alcohol and/or drug addiction problems; contact the [facility] 07/01 Crisis Hotline -Text 4HUCE to [phone]. If you received any narcotics, sedation, or [...] With: Address: When: CU[address] OR[address] [place] [address] Within 1 to 2 days Comments: Diagnosis [...] results be sent to Dr. Ortiz, your KETTLE TENDER physician. She will contact his office tomorrow [...] and treatment you received today in the [facility] Emergency Department were for an urgent problem and are not intended as complete care. It is important for you to follow up with a doctor, nurse practitioner, or physician?s assistant professor of business for ongoing care. If your symptoms become [...] so we can reach you if necessary. [facility] Emergency Department has provided you with a complete list of medications post discharge. Please inform your diamond grader/provider of your visit and for further instruction [...] Temporal: 3 (more content not included)... Normal [facility] hCG Quantitativeon 2 hCG Quantitative 61522.0 mIU/mL High 0.0-0.6 [facility] Comment on above: Order Comment: Pleisha whitney call or fax results to Dr. Ortiz's office Result Comment: Resu lt confirmed by dilution Post-Menopausal Reference Range is: 0.1-11.6 mIU/mL Performed By: #### 7 [id number] #### [facility] (DEFAULT) [address] [id number] Coding Summary.on 12-19-2018 Coding Summary. CODING DATE: 019 FINAL [facility] STATUS: Left Against Medical Advice PAYOR: Medicaid [...] Boykin Date Saved: 12/19/2018 10:35 am Normal [facility] ED Clinical Summaryon 2018 ED Clinical Summary (Inserted Image. Elena ble to display) [place] [id number] ED Clinical Summary Person Information Name: [facility]IKA [facility]ILL[facility] Age: 28 Years : 1990 12:00 AM Sex: Female Language: PCP: Marital Status: Phone: [phone] Visit Id: Visit Reason: Test; MENSTRUAL PROBLEMS [...] 12/15/2018 5:58 PM 12/15/2018 5:58 PM ADDRESS: [address] [place] [id number] PHYS DOC NOTES: MEDICAL INFORMATION: Prescriptions Given: PATIENT EDUCATION INFORMATION: Instructions: Follow up: DIAGNOSIS: Normal [facility] ED Patient Education Noteon 12-15-2018 ED Patient Education Note Normal [facility] ED Patient Summaryon 019 ED Patient Summary (Inserted Image. Elena ble to display) [place] [id number] Patient Discharge Instructions Person Information Name: ZULEIKA VILLALTA Age: 28 Years Arrival Date: 12/15/2018 4:37 PM Discharge Diagnosis: Primary Care Physician: Provider Information Primary Provider: Advanced Human Resource Intern:None The exam and treatment you received in the Emergency Department were for an urgent problem and are not intended as complete care. It is important that you follow up with a doctor, nurse practitioner, or physician?s assistant professor of business for ongoing care. If your symptoms become [...] opioids can be used to help relieve gmjvsphg-cd-kqqjch pain and are often prescribed following a [...] be struggling with addiction, tell your health livestock caretaker and ask for guidance or call SAMA?S National Helpline at 6-663-504-JGWY. Source: [place] Department of Health and Human Services/Center for Disease Control & Prevention [facility] Medications Given: Medication Dose Route No medications found. Medication Information: Comment: Pharmacy Information: Thank you for choosing [facility] Patient Education Materials: JADEN Jacome [place] , have received the following patient education materials/instructions and have verbalized understanding: Patient Education Materials: Follow-up Instructions: Prescriptions: Patient Signature __ Date Clinician/Nurse Signature Date 12/15/18 17:58:10 [facility] Progress Note-Nurseon 2018 Progress Note-Nurse Patient: EDGARDO [...] to take care of her daughter. Normal [facility] U BetaHcg Qualon 12-15-2018 HCG.beta subunit (U) [Moles/Vol] Negative [facility] Comment on above: Performed By: #### 2 [id number], [id number] #### [facility] Laboratory [address] [place] [address] UA With Cult Reflexon 2018 Bacteria LM Ql (Urine sed) TRACE Normal Trace [facility] Comment on above: Performed By: #### 2 [id number], [id number] #### [facility] [address] [place] [address] Bilirubin Ql (U) Negative Normal Negative [facility] Comment on above: Performed By: #### 2 [id number], [id number] #### [facility] [address] [place] [address] Clarity (U) CLEAR Normal Clear [facility] Comment on above: Performed By: #### 2 [id number], [id number] #### [facility] [address] [place] [address] Color (U) YELLOW Normal Yellow [facility] Comment on above: Performed By: #### 2 [id number], [id number] #### [facility] [address] [place] [address] Epithelial cells.squamous LM.HPF (Urine sed) [#/Area] 0-2 Normal 0-2 [facility] Comment on above: Performed By: #### 2 [id number], [id number] #### [facility] [address] [place] [address] Glucose Test strip (U) [Mass/Vol] Negative Normal Negative [facility] Comment on above: Performed By: #### 2 [id number], [id number] #### [facility] [address] [place] [address] Hemoglobin Ql (U) Negative Normal Negative [facility] Comment on above: Performed By: #### 2 [id number], [id number] #### [facility] [address] [place] [address] Ketones (U) [Mass/Vol] Negative Normal Negative [facility] Comment on above: Performed By: #### 2 [id number], [id number] #### [facility] [address] [place] [address] [place].plasma/[place] .RBC (Bld) [Mass ratio] 0-3 Normal 0-3 [facility] Comment on above: Performed By: #### 2 [id number], [id number] #### [facility] [address] [place] [address] Nitrite Ql (U) Negative Normal Negative [facility] Comment on above: Performed By: #### 2 [id number], [id number] #### [facility] [address] [place] [address] pH (U) 6.5 [pH] 5.0-9.0 [facility] Comment on above: Performed By: #### 2 [id number], [id number] #### [facility] [address] [place] [address] Protein (U) [Mass/Vol] Negative Normal Negative [facility] Comment on above: Performed By: #### 2 [id number], [id number] #### [facility] [address] [place] [address] Specific gravity (U) [Rel density] 1.010 1.005-1.03 0 [facility] Comment on above: Performed By: #### 2 [id number], [id number] #### [facility] [address] [place] [address] UA Spec Desc Clean Catch Normal [facility] Comment on above: Performed By: #### 2 [id number], [id number] #### [facility] [address] [place] [address] Urobilinogen Qn (U) 0.2 {Pamela'U}/dL Normal 0.0-1.0 [facility] Comment on above: Performed By: #### 2 [id number], [id number] #### [facility] [address] [place] [address] WBC Auto Ql (U) Negative Normal Negative [facility] Comment on above: Performed By: #### 2 0424582, [id number] #### [facility] [address] [place] [address] WBC LM.HPF (Urine sed) [#/Area] 0-5 Normal 0-5 [facility] Comment on above: Performed By: #### 2 7658959, [id number] #### [facility] [address] [place] [address] Auto Diffon 12-12-2017 Basophils Auto #/vol (Bld) 0.1 E3/mcL Normal 0.0-0.2 [facility] Comment on above: Order Comment: Order Added by Discern Expert. Performed By: #### 2 454886 ####KADEN [address] [place] [address] Basophils/100 WBC Auto (Bld) 0.9 % Normal 0.0-2.0 [facility] Comment on above: Order Comment: Order Added by Discern Expert. Performed By: #### 2 261766 ####KADEN [address] [place] [address] Eos Absolute 0.0 E3/mcL Normal 0.0-0.7 [facility] Comment on above: Order Comment: Order Added by Discern Expert. Performed By: #### 2 338786 ####KADEN [address] [place] [address] Eosinophils/100 leukocytes 0.4 % Normal 0.0-11.0 [facility] Comment on above: Order Comment: Order Added by Discern Expert. Performed By: #### 2 105392 ####KADEN [address] [place] [address] Lymphocytes 1.4 E3/mcL Normal 1.2-3.4 [facility] Comment on above: Order Comment: Order Added by Discern Expert. Performed By: #### 2 256404 ####KADEN [address] [place] [address] Lymphocytes/100 leukocytes 16.6 % Low 20.0-55.0 [facility] Comment on above: Order Comment: Order Added by Discern Expert. Performed By: #### 2 977951 ####KADEN [address] [place] [address] [place] Absolute 0.5 E3/mcL Normal 0.0-0.7 [facility] Comment on above: Order Comment: Order Added by Discern Expert. Performed By: #### 2 784053 ####KADEN [address] [place] [address] Monocytes/100 leukocytes 5.5 % Normal 0.0-10.0 [facility] Comment on above: Order Comment: Order Added by Discern Expert. Performed By: #### 2 037819 ####KADEN [address] [place] [address] Neutro Absolute 6.7 E3/mcL High 1.4-6.5 [facility] Comment on above: Order Comment: Order Added by Discern Expert. Performed By: #### 2 527573 ####KADEN [address] [place] [address] Neutro Auto 76.6 % High 37.0-75.0 [facility] Comment on above: Order Comment: Order Added by Discern Expert. Performed By: #### 2 626821 ####KADEN [address] [place] [address] CBC w/ Auto Diffon 8 Erythrocyte distribution width Auto Ratio (RBC) 15.0 % High 11.5-14.5 [facility] Comment on above: Performed By: #### 2 684368 ####KADEN [address] [place] [address] Erythrocytes (RBC) 4.94 E6/mcL Normal 3.90-5.40 [facility] Comment on above: Performed By: #### 2 557901 ####KADEN [address] [place] [address] Hematocrit (HCT) 40.0 % Normal 36.0-48.0 [facility] Comment on above: Performed By: #### 2 638045 ####KADEN [address] [place] [address] Hemoglobin mass conc (Bld) 13.0 g/dL Normal 12.0-16.0 [facility] Comment on above: Performed By: #### 2 738102 ####KADEN [address] [place] [address] MCH 26.2 pg Low 27.0-31.0 [facility] Comment on above: Performed By: #### 2 088571 ####KADEN [address] [place] [address] MCHC mass conc (RBC) 32.4 g/dL Low 33.0-37.0 [facility] Comment on above: Performed By: #### 2 665661 ####KADEN [address] [place] [address] MCV 81.0 fL Normal 78.0-100.0 [facility] Comment on above: Performed By: #### 2 552067 ####KADEN [address] [place] [address] Platelet mean volume (PMV) 7.5 fL Normal 7.4-11.0 [facility] Comment on above: Performed By: #### 2 325070 ####KADEN [address] [place] [address] Platelets 347 E3/mcL Normal 130-400 [facility] Comment on above: Performed By: #### 2 797357 ####KADEN [address] [place] [address] WBC (Leukocytes) 8.7 E3/mcL Normal 3.6-11.0 [facility] Comment on above: Performed By: #### 2 264558 ####KDAEN [address] [place] [address] CMPon 12-12-2017 Alanine aminotransferase (ALT) 14 Int._Unit/L Normal 10-40 [facility] Comment on above: Performed By: #### 2 414200 ####KADEN [address] [place] [address] Albumin 3.8 g/dL Normal 3.2-5.0 [facility] Comment on above: Performed By: #### 2 024128 ####KADEN [address] [place] [address] Albumin/Globulin Ratio 1.0 {ratio} Low 1.1-1.9 [facility] Comment on above: Performed By: #### 2 893484 ####KADEN [address] [place] [address] Alk Phos 75 Int._Unit/L Normal 42-121 [facility] Comment on above: Performed By: #### 2 632462 ####KADEN [address] [place] [address] Aspartate aminotransferase (AST) 18 Int._Unit/L Normal 10-42 [facility] Comment on above: Performed By: #### 2 094946 ####KADEN [address] [place] [address] Bili Total 1.0 mg/dL Normal 0.2-1.0 [facility] Comment on above: Performed By: #### 2 940090 ####KADEN [address] [place] [address] BUN/Creatinine Ratio 12.5 ratio Normal 5.4-30.0 [facility] Comment on above: Performed By: #### 2 960472 ####AKDEN [address] [place] [address] Creatinine 0.8 mg/dL Normal 0.6-1.3 [facility] Comment on above: Performed By: #### 2 950935 ####KADEN [address] [place] [address] Globulin 3.8 g/dL Normal 2.0-4.0 [facility] Comment on above: Performed By: #### 2 673725 ####KADEN [address] [place] [address] Protein 7.6 g/dL Normal 6.4-8.3 [facility] Comment on above: Performed By: #### 2 922534 ####KADEN [address] [place] [address] Urea nitrogen 10 mg/dL Normal 7-18 [facility] Comment on above: Performed By: #### 2 568477 ####KADEN [address] [place] [address] Calcium 9.3 mg/dL Normal 8.4-10.2 [facility] Comment on above: Performed By: #### 2 726301 ####KADEN [address] [place] [address] Chloride 105 mmol/L Normal 98-107 [facility] Comment on above: Performed By: #### 2 778668 ####KADEN [address] [place] [address] CO2 25.1 mmol/L Normal 24.0-30.0 [facility] Comment on above: Performed By: #### 2 102854 ####KADEN [address] [place] [address] Glucose mass conc 101 mg/dL High 70-99 [facility] Comment on above: Performed By: #### 2 648842 ####KADEN [address] [place] [address] Potassium molar conc 3.4 mmol/L Low 3.5-5.1 [facility] Comment on above: Performed By: #### 2 521098 ####KADEN [address] [place] [address] Sodium 140 mmol/L Normal 136-145 [facility] Comment on above: Performed By: #### 2 080357 ####KADEN [address] [place] [address] Lipase Levelon 12-12-2017 Lipase Lvl 30 U/L Normal 8-57 [facility] Comment on above: Performed By: #### 2 137735 ####KADEN [address] [place] [address] UA Completeon 12-12-2017 UA Blood 3+ Normal Negative [facility] Comment on above: Performed By: #### 2 562666 ####KADEN [address] [place] [address] UA Bacteria Trace Abnormal None [facility] Comment on above: Performed By: #### 2 491390 ####KADEN [address] [place] [address] UA Clarity SltCloudy Abnormal Clear [facility] Comment on above: Performed By: #### 2 811247 ####KADEN [address] [place] [address] UA Hyal Cast 0-2 Normal 0-2 [facility] Comment on above: Performed By: #### 2 728872 ####KADEN [address] [place] [address] UA Leuk Est 3+ Abnormal Negative [facility] Comment on above: Performed By: #### 2 277617 ####KADEN [address] [place] [address] UA Mucous Many Abnormal Trace [facility] Comment on above: Performed By: #### 2 331820 ####KADEN [address] [place] [address] UA Nitrite Negative Normal Negative [facility] Comment on above: Performed By: #### 2 223933 ####KADEN [address] [place] [address] UA pH 5.0 Normal 4.6-8.0 [facility] Comment on above: Performed By: #### 2 061454 ####KADEN [address] [place] [address] UA Protein 1+ Abnormal Negative [facility] Comment on above: Performed By: #### 2 505149 ####KADEN [address] [place] [address] UA Spec Grav 1.026 Normal 1.003-1.03 0 [facility] Comment on above: Performed By: #### 2 261266 ####KADEN [address] [place] [address] UA Squam Epithelial 0-5 Normal 0-5 [facility] Comment on above: Performed By: #### 2 982087 ####KADEN [address] [place] [address] UA Urobilinogen 2.0 mg/dL Abnormal [facility] Comment on above: Performed By: #### 2 948203 ####KADEN [address] [place] [address] UA WBC >50 Abnormal 0-5 [facility] Comment on above: Performed By: #### 2 641151 ####KADEN [address] [place] [address] Urine, color Yellow Normal Yellow [facility] Comment on above: Performed By: #### 2 110363 ####KADEN [address] [place] [address] Urine, erythrocytes 20-50 Abnormal 0-3 [facility] Comment on above: Performed By: #### 2 905769 ####KADEN [address] [place] [address] Urine, glucose Negative Normal Negative [facility] Comment on above: Performed By: #### 2 522372 ####KADEN [address] [place] [address] Urine, ketones presence Trace Normal [facility] Comment on above: Performed By: #### 2 443738 ####KADEN [address]MjmHtpb[address] [place] [address] Urine, urobilinogen Negative Normal Negative [facility] Comment on above: Performed By: #### 2 336991 ####KADEN [address] [place] [address] eGFRon 12-12-2017 eGFR AA >60 Normal [facility] Comment on above: Order Comment: Order Added by Discern Expert. Performed By: #### 2 105405 ####KADEN [address]Tlms[address] [place] [address] eGFR (non-black) mL/min/{1.73_m2} Normal [facility] Comment on above: Order Comment: Order Added by Discern Expert. Performed By: #### 2 617427 ####KADEN [address]mb[address] [place] [address] HISTORY PHYSICALon 8 HISTORY PHYSICAL HNO ID: [id number] thor: Clara Baker WolfeService: Maternal MedicineAuthor Type: PhysicianType: HANDPFiled: 12/02/2017 9:04 AMNote Text:[facility] DOCUMENTDISCHARGE SUMMARYPatient Name: Zuleika Gtz [...] with provider.Clara Jama, DO Normal [facility] PROGRESSon 12-02-2017 PROGRESS HNO ID: [id number] thor: Marie Lema (Res) LendeService: ObstetricsAuthor Type: [...] with more than 50% of the total enbx-vb-vjrtyxqj of the visit in counseling / coordination [...] decreasing.Ambulating without difficulty.OBJECTIVE:PHYSI GEN EXAM:Heart: RR, S1, B7Lhont: clear to auscultationAbdomen: Soft Bowel sounds present [...] SOCIAL WORKon 12-02-2017 SOCIAL WORK HNO ID: [id number] thor: Meredith Jackson (Sw)oService: Social WorkAuthor Type: Social WorkerType: Social WorkFiled: 12/02/2017 12:25 PMNote Text:SOCIAL WORK CONSULT NOTESERVICE DATE: 12/02/2017SERVICE TIME: 1015Referred by: Jose for visit:Maternal/ - adjustment to conditionLiving Arrangement: HomeLives With: PartnerFinancial Resources: DisabledPrimary Contact:Extended Emergency Contact Information DARRELL BRANCH [facility]ela[facility] Emergency Contact: No,ContactRelation: OtherSupportive: YesOther [...] from hospital. (FOBparents are Anamika Munoz of [address] [place] [address] [facility]).Per pt and FOB, all needed baby supplies and equipment are at the [facility] and a nursery has been set up.Per pt, name of baby girl is Martha Branch.Pt states she is on SSI and WIC.Pt shares that she is in ongoing counseling at [facility] in [place] and has appointments 2 x per month.Discussed with pt and FOB signs and sx of depression; safe babysleep and discussed ways to deal with crying . Pt again states sheis going to rely on her support system.No additional issues identified at this time. Encouraged pt and FOB toutilize services through [facility]. Providedcontact information.Outcome/Recomm endations:Assistance through [facility] spent (minutes): 60SIGNATURE: CARLA Goncalves PATIENT NAME: Zuleika Hernandez: December 02, 2017 : 11:10 AM PAGER/CONTACT#: [facility] ANES INTRAOPon 12-01-2017 ANES INTRAOP HNO ID: [id number] thor: Terrance Lockhartervice: AnesthesiologyAuthor Type: Nurse AnesthetistType: Anesthesia IntraOpFiled: 12/01/2017 9:41 AMNote Text:ANALGESIA PROGRESS RECORDCATHETER REMOVAL/END OF CASESERVICE DATE: 12/01/2017REMOVAL DATE AND TIME: 11/30/2017, 1953DELIVERY DATE AND TIME: 11/30/2017 at 5:49 PMCATHETER REMOVAL:Catheter Removal: See [facility] Nursing noteSIGNATURE: Terrance Contreras APRN.CRNA PATIENT NAME: Zuleika Hernandez: December 01, 2017 : 9:40 AM PAGER/CONTACT #: [facility] ANES Keke 12-01-2017 ANES POST HNO ID: [id number] thor: Terrance Mcgheeice: AnesthesiologyAuthor Type: Nurse AnesthetistType: Anesthesia PostOpFiled: 12/01/2017 9:43 AMNote Text:POST ANESTHESIA EVALUATION NOTESERVICE DATE: 12/01/2017SERVICE TIME: 9:42 AMDOB: 1990Vitals: 12[birth year]01/17990 06/17/879136Arqu: 36.7 ?C (98.1 ?F) 36.8 ?C (98.2 [...] [facility] PROGRESSon 12-01-2017 PROGRESS HNO ID: [id number] thor: Marie Lema (Res) LendeService: ObstetricsAuthor Type: [...] decreasing.Ambulating without difficulty.OBJECTIVE:PHYSI GEN EXAM:Heart: RR, S1, V6Pcdvr: clear to auscultationAbdomen: Soft Bowel sounds present [...] 2017 ABO group Nom (Bld) A Normal [facility] Comment on above: Performed By: #### A JESSIE #### [facility] [address] [place], [place] [address] RH Type Positive Normal [facility] Comment on above: Performed By: #### A JESSIE #### [facility] [address] [place], [place] [address] ANES PREOPon 11-30-2017 ANES PREOP HNO ID: [id number] thor: Aaron (Chiara) EarleyService: AnesthesiologyAuthor Type: Nurse [...] of Sleep Apnea: DeniesHematocritDate Value Ref Range Rrxqgp5811/30/2017 32.3 (L) 34.1 - 44.9 % Final Platelet CountDate Value Ref Range Eemsbu2311/30/2017 193 182 - 369 thou/cmm Final Vitals: [id number] 271256 995166 143BP: 142/75 138/81Pulse: 75 81Resp:Temp: 36.6 ?C [...] as needed. Disp: Rfl:Inpatient medications reviewed in [facility].I have interviewed and examined the patient. 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 Auto Diffon 11-30-2017 Basophils Auto #/vol (Bld) 0.1 E3/mcL Normal 0.0-0.2 [facility] Comment on above: Order Comment: Order Added by Discern Expert. Performed By: #### 2 [id number] ####KADEN [address]FjiUidx[address] [place] [address] Basophils/100 WBC Auto (Bld) 0.9 % Normal 0.0-2.0 [facility] Comment on above: Order Comment: Order Added by Discern Expert. Performed By: #### 2 556082 ####KADEN [address]uoAjnv[address] [place] [address] Eos Absolute 0.1 E3/mcL Normal 0.0-0.7 [facility] Comment on above: Order Comment: Order Added by Discern Expert. Performed By: #### 2 994218 ####KADEN [address]GymEjhz[address] [place] [address] Eosinophils/100 leukocytes 1.0 % Normal 0.0-11.0 [facility] Comment on above: Order Comment: Order Added by Discern Expert. Performed By: #### 2 335796 ####KADEN [address]HjkTaoy[address] [place] [address] Lymphocytes 2.0 E3/mcL Normal 1.2-3.4 [facility] Comment on above: Order Comment: Order Added by Discern Expert. Performed By: #### 2 920191 ####KADEN [address]KneBvhz[address] [place] [address] Lymphocytes/100 leukocytes 22.1 % Normal 20.0-55.0 [facility] Comment on above: Order Comment: Order Added by Discern Expert. Performed By: #### 2 068164 ####KADEN [address]WlrJfii[address] [place] [address] [place] Absolute 0.7 E3/mcL Normal 0.0-0.7 [facility] Comment on above: Order Comment: Order Added by Discern Expert. Performed By: #### 2 321883 ####KADEN [address] [place] [address] Monocytes/100 leukocytes 7.5 % Normal 0.0-10.0 [facility] Comment on above: Order Comment: Order Added by Discern Expert. Performed By: #### 2 [id number] ####KADEN BairdV[address]fmo[address] [place] [address] Neutro Absolute 6.1 E3/mcL Normal 1.4-6.5 [facility] Comment on above: Order Comment: Order Added by Discern Expert. Performed By: #### 2 757946 ####KADEN [address] [place] [address] Neutro Auto 68.5 % Normal 37.0-75.0 [facility] Comment on above: Order Comment: Order Added by Discern Expert. Performed By: #### 2 [id number] ####KADEN [address] [place] [address] CBC w/ Auto Diffon 8 Erythrocyte distribution width Auto Ratio (RBC) 14.3 % Normal 11.5-14.5 [facility] Comment on above: Performed By: #### 2 015102 ####KADEN [address] [place] [id number] Erythrocytes (RBC) 4.34 E6/mcL Normal 3.90-5.40 [facility] Comment on above: Performed By: #### 2 939952 ####KADEN [address] [place] [address] Hematocrit (HCT) 35.1 % Low 36.0-48.0 [facility] Comment on above: Performed By: #### 2 076171 ####KADEN [address] [place] [address] Hemoglobin mass conc (Bld) 11.6 g/dL Low 12.0-16.0 [facility] Comment on above: Performed By: #### 2 249148 ####KADEN [address] [place] [address] MCH 26.6 pg Low 27.0-31.0 [facility] Comment on above: Performed By: #### 2 775899 ####KADEN BairdQklQiht[address] [place] [address] MCHC mass conc (RBC) 32.9 g/dL Low 33.0-37.0 [facility] Comment on above: Performed By: #### 2 871706 ####KADEN BairdWlnFrnk[address] [place] [address] MCV 80.9 fL Normal 78.0-100.0 [facility] Comment on above: Performed By: #### 2 004495 ####KADEN [address] [place] [address] Platelet mean volume (PMV) 7.6 fL Normal 7.4-11.0 [facility] Comment on above: Performed By: #### 2 323993 ####KADEN [address] [place] [address] Platelets 217 E3/mcL Normal 130-400 [facility] Comment on above: Performed By: #### 2 471381 ####KADEN [address] [place] [address] WBC (Leukocytes) 8.8 E3/mcL Normal 3.6-11.0 [facility] Comment on above: Performed By: #### 2 067294 ####KADEN [address] [place] [address] CONSULTon 11-30-2017 CONSULT HNO ID: [id number] thor: Marie Lema (Res) LendeService: ObstetricsAuthor Type: [...] T0 L0 SAB1 TAB0 Ectopic0 Multiple0 Live Zdxlxr1Jiuv of Baby 1: Not recorded Date: 2014 [...] pupils equal, no thyromegalyLungs: clearHeart: RR, S1, M1Ctvhqww: soft, nontender, no massesUterus: soft, NTExtremities: 1+ [...] Epi prn4. FB soon5. [place] [address]. anomalies- prominent cisterna magna, bilateral periventrcularnodular heterotopia, [...] EF 55%.10. H/o maternal clubfoot-s/p repair as qqtusc30. H/o tobacco abuseS[facility] to [facility] for deliveryDr. Amado reviewed with Dr. MaldonadoSIGNATURE: Marie Hassan DO PATIENT NAME: Zuleika LambATE: November 30, 2017 : 6:49 AM PAGER/CONTACT #: [phone] Normal [facility] HISTORY PHYSICALon 8 HISTORY PHYSICAL HNO ID: [id number] thor: Marie Lema (Res) JabiereService: ObstetricsAuthor Type: [...] T0 L0 SAB1 TAB0 Ectopic0 Multiple0 Live Kvqwkj0Jvfo of Baby 1: Not recorded Date: 2014 [...] pupils equal, no thyromegalyLungs: clearHeart: RR, S1, S8Uugxnsw: soft, nontender, no massesUterus: soft, NTExtremities: 1+ [...] Epi prn4. FB [place]5. [place] [address]. anomalies- prominent cisterna magna, bilateral periventrcularnodular heterotopia, [...] EF 55%.10. H/o maternal clubfoot-s/p repair as piuclz82. H/o tobacco abuseSigned out to [facility] for deliveryD/w Dr. AmadoSIGNATURE: Marie Hassan DO PATIENT NAME: Zuleika LambATE: November 30, 2017 : 6:49 AM PAGER/CONTACT #: [phone] Normal [facility] Hemogramon 11-30-2017 Erythrocyte distribution width Ratio (RBC) 13.6 % Normal 11.7-14.4 [facility] Comment on above: Performed By: #### C BC1 #### [place] [address] Hematocrit Volume Fraction (Bld) 32.3 % Low 34.1-44.9 [facility] Comment on above: Performed By: #### C BC1 #### [facility] [address] [place], [place] [address] Hemoglobin mass conc (Bld) 10.4 g/dL Low 11.2-15.7 [facility] Comment on above: Performed By: #### C BC1 #### [facility] [address] [place], [place] [address] MCH Entitic mass (RBC) 26.4 pg Normal 25.6-32.2 [facility] Comment on above: Performed By: #### C BC1 #### [facility] [address] [place] [address] MCHC mass conc (RBC) 32.2 % Normal 31.6-34.8 [facility] Comment on above: Performed By: #### [place] BC1 #### [facility] [address] [place] [address] MCV Entitic volume (RBC) 82.0 fL Normal 79.4-94.8 [facility] Comment on above: Performed By: #### [place] BC1 #### [facility] [address] [place] [address] Platelet mean volume Entitic volume (Bld) 9.9 fL Normal 9.4-12.3 [facility] Comment on above: Performed By: #### [place] BC1 #### [facility] [address] [place] [address] Platelets #/vol (Bld) 193 thou/cmm Normal 182-369 A [facility] Comment on above: Performed By: #### [place] BC1 #### [facility] [address] [place] [address] RBC #/vol (Bld) 3.94 mil/cmm Normal 3.93-5.22 [facility] Comment on above: Performed By: #### [place] BC1 #### [facility] [address] [place] [address] RDW SD 40.6 fl Normal 36.4-46.3 [facility] Comment on above: Performed By: #### [place] BC1 #### [place] [address] WBC #/vol (Bld) 9.85 thou/cmm Normal 3.98-10.04 [facility] Comment on above: Performed By: #### [place] BC1 #### [facility] [address] [place] [address] LD NOTEon 11-30-2017 LD NOTE HNO ID: [id number] thor: Marie Lema (Res) LendeService: ObstetricsAuthor Type: ResidentType: LANDD Delivery NoteFiled: 11/30/2017 6:19 PMNote Text: -------Attestation signed by Serenity Maldonado MD at 12/01/2017 6:04 PMI saw and evaluated the patient. I reviewed the resident's note and agree,except that patient seen by [facility] (patient has FAS, fetus with multipleanomlaies) service, consult placed to [facility] for management of labor AND delivery.Essential primip presented at 39w with PROM, had Pugh balloon AND Pitocin foraugmentaion. Late in labor noted tachycardia that improved with IVFB ANDTylenol (mother rico had elevated temp but felt warm). Transported to [facility] so baby could go to awaiting NICU team for evaluation (was allowed tohave delivery to abdomen AND 30 sec delay for cord clamping). Pushed well AND hadSVD of a viable female (APGARS 8,9, weight of 3200g/7#1oz) over intactperineum. Uterus slightly boggy after delivery, responded to massage AND Pitocininfusion, EBL ~500cc.Serenity Maldonado MD ----OBSTETRICSDELIVERY SUMMARY - VAGINAL DELIVERYGestational Age at Delivery: 17g9eClaeonb Date: 11/30/2017Service Time: Bg Zuleika ku [[id number]]Labor EventsRupture Date: 11/30/17Rupture Time: 224Rupture Type: PROMFluid [...] NURSING PROGon 11-30-2017 NURSING PROG HNO ID: [id number] thor: Marguerite (Rn) ANEUDY Albarranervice: (none)Author Type: Registered NurseType: Nursing Progress NoteFiled: 11/30/2017 7:06 PMNote Text: INTRODUCED SELF TO PATIENT AND SUPPORT PERSONS. PLAN OF CARE DISCUSSED.ASSESSMENT PERFORMED. PATIENT DENIES COMPLAINTS. Normal [facility] NURSING PROG HNO ID: [id number] thor: Darcie (Rn) ANEUDY Landeroservice: NursingAuthor Type: Registered NurseType: Nursing Progress NoteFiled: 11/30/2017 10:03 AMNote Text:Patient up to shower for comfort. Boyfriend at side. On telemetrymonitors. RN remains in room. FHR difficult to maintain continuoustracing Normal [facility] NURSING PROG HNO ID: [id number] Author: Norah MagañaRn) KARRI Eastman Service: Nursing Author Type: Registered Nurse Type: Nursing Progress Note Filed: 11/30/2017 7:18 AM Note Text: Report given to Darcie DURAN and care transferred at this time. Normal 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 Cat I FHRT with baseline around 160s. updated and in house.Franki Neri 2017 5:04 PM [facility] PROGRESS HNO ID: [id number] Author: Darcie Washington) KARRI Landeros Service: Nursing Author Type: Registered Nurse Type: Progress Notes Filed: 11/30/2017 3:29 PM Note Text: Patient feeling pressure, cervical exam 9.5 cm. NICU notified. Patient feels warm, but temp 36.9. [facility] PROGRESS HNO ID: [id number] thor: Marie Lema (Res) LendeService: ObstetricsAuthor Type: [...] Landeros)Rupture Date: 11/30/17 (11/30/17 0853 : Darcie Landeros RN)Rupture Time: 0225 (11/30/17 0853 : Darcie Landeros RN)Amniotic Fluid Color: Clear (11/30/17 0853 : Darcie Landeros, RN)Additional Findings: NoneFETAL MONITORINGFHT: 150s Moderate/acelerations present/early decelerations/isolated latedecelerationsToco: 2-3 minutesCategory: IILABSDiagnostic tests reviewed for today's visit: Most recent labs and imagingresults.Assessment/ Plan27 year old EGA:39w0d. Admitted for augmentation for PROM1. GBS-2. Pit per protocol3. Epi in- pt comfortable4. s/p FB5. [place] [address]. anomalies- prominent cisterna magna, bilateral periventrcularnodular heterotopia, [...] EF 55%.10. H/o maternal clubfoot-s/p repair as oygxxn62. H/o tobacco abuse12. Cat II- Isolate late decelerations. Moderate variability. Continuingto make cervical change. Not on Cat II protocol.SIGNATURE: Marie Hassan DO PATIENT NAME: Zuleika LambATE: November 30, 2017 : 1:35 PM PAGER/CONTACT #: [phone] [facility] PROGRESS HNO ID: [id number] thor: Yolanda (Res) SnyderService: ObstetricsAuthor Type: ResidentType: [...] Romina)Station: -2 (11/30/17 1309 : Yolanda (Res) Romina)Presentation: (not recorded)MEMBRANES:Status: Membrane Status: Premature (11/30/17 [...] pt comfortable4. s/p FB5. [place] [address]. anomalies- prominent cisterna magna, bilateral periventrcularnodular heterotopia, [...] EF 55%.10. H/o maternal clubfoot-s/p repair as mdyhvj40. H/o tobacco abuseSIGNATURE: Yolanda Barbosa DO PATIENT NAME: Zuleika LambATE: November 30, 2017 : 1:11 PM PAGER/CONTACT #: [phone] [facility] PROGRESS HNO ID: [id number] thor: Yolanda (Res) SnyderService: ObstetricsAuthor Type: ResidentType: Progress NotesFiled: 11/30/2017 11:07 AMNote Text:OBSTETRICSINTRAPARTUM PROGRESS NOTESERVICE DATE: November 30, 2017SERVICE TIME: 11:05 AMSubjectivePatient with no complaints.ObjectiveLAST VITALS:Pulse BP Resp O2 Sat Temp Pain 75 142/75 18 100 % 36.6 ?C (97.9 ?F) 10PHYSICAL EXAM:CERVICAL EXAM:Last Exam Notes: Dilation: 1 (11/30/1748 : Marie N (Res) Lende)Effacement (%): 60 (11/30/1748 : Marie N (Res) Lende)Station: -2 (11/30/1748 [...] Pit per protocol3. [place] [address]. [place] [address]. anomalies- prominent cisterna magna, bilateral periventrcularnodular heterotopia, [...] EF 55%.10. H/o maternal clubfoot-s/p repair as ihqdyb48. H/o tobacco abuseSIGNATURE: Yolanda Barbosa DO PATIENT NAME: Zuleika BecerrilnDATE: November 30, 2017 : 11:05 AM PAGER/CONTACT #: [phone] [facility] PROGRESS HNO ID: [id number] Author: Darcie (Rn) Tigre RN Service: Nursing Author Type: Registered Nurse Type: Progress Notes Filed: 11/30/2017 10:35 AM Note Text: Unable to find labwork for chart. [facility] PROGRESS HNO ID: [id number] thor: Marie Lema (Res) JabiereService: ObstetricsAuthor Type: [...] Pit per protocol3. [place] [address]. [place] [address]. anomalies- prominent cisterna magna, bilateral periventrcularnodular heterotopia, [...] EF 55%.10. H/o maternal clubfoot-s/p repair as xhbydl36. H/o tobacco abuse?SIGNATURE: Marie Hassan DO PATIENT NAME: Zuleika LambATE: November 30, 2017 : 10:31 AM PAGER/CONTACT #: [phone] Normal [facility] PROGRESS HNO ID: [id number] thor: Darcie (Rn) Tigre, RNService: NursingAuthor Type: Registered NurseType: Progress NotesFiled: 11/30/2017 10:13 AMNote Text:Patient remains in shower. RN and boyfriend at side. EFM on telemetryand adjusted while patient in shower. Difficult to keep baby on. Normal [facility] PROGRESS HNO ID: [id number] thor: Yolanda (Res) SnyderService: ObstetricsAuthor Type: ResidentType: Progress NotesFiled: 11/30/2017 7:35 AMNote Text:In to place FB. Pt tolerated procedure well. Continues to leak clearfluid. Pt uncomfortable with contractions.Cat I FHT, reactive with accelsToco: 2-5 minsHeather Romina, PGY-1Obstetrics and GynecologyPager [phone]/7:34 AM Normal [facility] Type and Screenon 11-30-2017 ABO group Nom (Bld) A Normal [facility] Comment on above: Performed By: #### T &S #### [facility] [address] [place] [address] Comment See Below Normal [facility] Comment on above: Result Comment: Scre en &/or Xmatch expires in 3 days at 12 midnight. Redraw patient at that time. Performed By: #### T &S #### [facility] [address] [place] [address] RH Type Positive Normal [facility] Comment on above: Performed By: #### T &S #### [facility] [address] [place] [address] Progress Noteon 11-28-2017 Senior Financial Analyst Authentication Interface Message Text Routine VisitSubjective: Zuleika Villalta is being seen today for her obstetrical visit. She is at 26s3rciilvfrol. Patient reports no complaints. Movement: normal. She [...] CYTOTEC IOL 12-02-17 at 5 pm at [facility]. Pre-Procedure formdone (CG)GBS culture: neg 11/07/17Contraception: [...] echo in the [facility] reviewedShe would like her follow up and contraception with Dr. Ivan.The total patient time of the visit was 15 minutes, of which greater than 50% ofthe time was spent counseling and coordinating care. Normal [facility] Progress Noteon 11-22-2017 Senior Financial Analyst Authentication Interface Message Text FTC plan of care faxed to [facility] [employer] in event pt would arrive for urgent management. Normal [facility] Progress Noteon 11-21-2017 Senior Financial Analyst Authentication Interface Message Text Routine VisitSubjective: Zuleika Villalta is being seen today for her obstetrical visit. She is at 13i5dcnlnmbhwu. Patient reports that she went to [facility] last night due toconcerns for [...] CYTOTEC IOL 618-18 at 5 pm at [facility]. Pre-Procedure formdone (CG)GBS culture: neg 11/07/17Contraception: [...] scheduled for IOL on12/02/17.Oksana amado MD Normal [facility] Progress Noteon 11-12-2017 Senior Financial Analyst Authentication Interface Message Text Call from [facility] that pt presented there in labor. [facility] plan of care and ACOGs faxed by Toan Chen. Provided after hours MFM number provided. Normal [facility] Group B Strep Cultureon 10-16 Group B Strep Culture Group B Strep Cult ure: No Group B Streptococci isolated. Source: VAG Collected: 11/07/17 09:00 Site: Vaginal/Rectal Received : 11/07/17 22:01Group B Strep Culture FINAL 11/10/17 08:34 No Group B Streptococci isolated. Normal [facility] Comment on above: Performed By: #### G [facility] ####[facility] of [address] [phone] Progress Noteon 11-07-2017 Senior Financial Analyst Authentication Interface Message Text Routine VisitSubjective: Zuleika Villalta is being seen today for her obstetrical visit. She is at 41c9agmefmeeia. Patient reports occasional nausea. No emesis. She [...] OB visit and BPP.Oksana Amado MD Normal [facility] Progress Noteon 10-24-2017 Senior Financial Analyst Authentication Interface Message Text Routine VisitSubjective: Zuleika [...] echo in the [facility] P[facility] reviewedFollow up 2 weeks.The total patient time of the visit was 15 minutes, of which greater than 50% ofthe time was spent counseling and coordinating care.Marco Antonio Antonio DO Normal [facility] Progress Noteon 10-15-2017 Senior Financial Analyst Authentication Interface Message Text Ped selection made. Updated prenatals Normal [facility] Progress Noteon 10-08-2017 Senior Financial Analyst Authentication Interface Message Text Thank you for [...] size. There was a patent foramen ovale, gqptmdjbv-rm-dzay shunt.Tricuspid valve:Normal tricuspid valve. There was normal [...] fetuses and in fetuses with CHD and onzegqlvzrwfv65g23, the ratio being below 0.3 )Impression and recommendations.1) Abnormal 3-vessel view, ascending aorta was moderately dilated. 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 thymic thoracic ratio (TT-ratio)=0.1 ( TT-ratio 0.44 in normal fetuses and in fetuses with CHD and qsuruhzonxyqf48y05, the ratio being below 0.3 )5) Normal [...] treatments, follow up fetalechocardiograms and follow ups.10) Fitz[facility]ugh Echocardiogram prior to the discharge from the nursery or earlier ifcardiac condition/status changes in any way. Fitzhugh follow up and treatmentshould be determined on the basis of the findings on the initial echocardiogram.Counseling and/or coordination of care was greater than 35 minutes which is morethan 50% of the total time of 60 minutes spent on the encounter. Normal [facility] Senior Financial Analyst Authentication Interface Message Text Initial VisitSubjective: Zuleika [...] weeks for OB visit and BPP in [place].Oksana Amado MD Normal [facility] Cytogenomic Microarray Nivia sis of Bloodon 09-10-2017 Cytogenomic Microarray Analysis of Blood SEE BELOW Normal [facility] Comment on above: Result Comment: SPEC IMEN: BLOODCLINICAL INFORMATION: Learning disability[F81.9]TEST: CYTOGENOMIC MICROARRAY ANALYSISRESULT SUMMARY:Normal femaleNOMENCLATURE:arr(1-22,X)v9ACBSEBCDZQLAHF & COMMENTS:The cytogenomics microarray analysis indicated no [...] whole genome microarray analysis was performed the FDA-clearedCraneware(R) Dx platform, which contains approximately 2.7million markers, including 1,953,246 unique non-polymorphic copy numberprobes and 743,304 single nucleotide polymorphism (SNP) probes. Thegenome-wide functional resolution of this assay is approximately 25 kbfor deletions and 50 kb for duplications. This microarray andassociated software (Chromosome Analysis Suite Dx) were manufactured [employer] and used by the [facility]ogenetics and Molecular DiagnosticsLaboratories of [facility] for the purpose ofidentifying DNA [...] further information regarding intendeduse and limitations, see http://www.[employer].AetherPal/VersionOnecandx.Note: The Cytogenetics Laboratory has this patient's blood [...] for additional testing. 09/19/2017 BIGG GARCIA, PH.D., [facility], [facility] 09/19/2017 Performed By: #### M CRY1 ####[facility] [address] [phone] MRI (SINGLE)on 018 MRI (SINGLE) MRI (SINGLE)CL [...] Dr. AJ CAMILO at 09/10/2017 10:21 Normal [facility] Progress Noteon 09-10-2017 Senior Financial Analyst Authentication Interface Message Text The total patient time of the visit was 15 minutes, of which greater than 50% of the time was spent counseling and coordinating care. Normal [facility] Auto Diffon 09-03-2017 Basophils Auto #/vol (Bld) 0.1 E3/mcL Normal 0.0-0.2 [facility] Comment on above: Order Comment: Order Added by Discern Expert. Performed By: #### 2 [id number] ####KADEN [address]ab[address] [place] [address] Basophils/100 WBC Auto (Bld) 0.5 % Normal 0.0-2.0 [facility] Comment on above: Order Comment: Order Added by Discern Expert. Performed By: #### 2 [id number] ####KADEN [address] [place] [address] Eos Absolute 0.0 E3/mcL Normal 0.0-0.7 [facility] Comment on above: Order Comment: Order Added by Discern Expert. Performed By: #### 2 [id number] ####KADEN [address] [place] [address] Eosinophils/100 leukocytes 0.4 % Normal 0.0-11.0 [facility] Comment on above: Order Comment: Order Added by Discern Expert. Performed By: #### 2 175150 ####KADEN [address] [place] [address] Lymphocytes 1.3 E3/mcL Normal 1.2-3.4 [facility] Comment on above: Order Comment: Order Added by Discern Expert. Performed By: #### 2 399337 ####KADEN [address] [place] [address] Lymphocytes/100 leukocytes 13.1 % Low 20.0-55.0 [facility] Comment on above: Order Comment: Order Added by Discern Expert. Performed By: #### 2 764517 ####KADEN [address] [place] [address] [place] Absolute 0.4 E3/mcL Normal 0.0-0.7 [facility] Comment on above: Order Comment: Order Added by Discern Expert. Performed By: #### 2 618113 ####KADEN [address] [place] [address] Monocytes/100 leukocytes 4.3 % Normal 0.0-10.0 [facility] Comment on above: Order Comment: Order Added by Discern Expert. Performed By: #### 2 463225 ####KADEN [address] [place] [id number] Neutro Absolute 8.4 E3/mcL High 1.4-6.5 [facility] Comment on above: Order Comment: Order Added by Discern Expert. Performed By: #### 2 594711 ####KADEN [address] [place] [address] Neutro Auto 81.7 % High 37.0-75.0 [facility] Comment on above: Order Comment: Order Added by Discern Expert. Performed By: #### 2 158831 ####KADEN [address] [place] [address] CBC w/ Auto Diffon 8 Erythrocyte distribution width Auto Ratio (RBC) 13.1 % Normal 11.5-14.5 [facility] Comment on above: Performed By: #### 2 465553 ####KADEN [address] [place] [address] Erythrocytes (RBC) 3.90 E6/mcL Normal 3.90-5.40 [facility] Comment on above: Performed By: #### 2 606137 ####KADEN [address] [place] [address] Hematocrit (HCT) 34.7 % Low 36.0-48.0 [facility] Comment on above: Performed By: #### 2 157336 ####KADEN [address] [place] [address] Hemoglobin mass conc (Bld) 11.8 g/dL Low 12.0-16.0 [facility] Comment on above: Performed By: #### 2 132993 ####KADEN [address] [place] [address] MCH 30.3 pg Normal 27.0-31.0 [facility] Comment on above: Performed By: #### 2 316803 ####KADEN [address] [place] [address] MCHC mass conc (RBC) 34.2 g/dL Normal 33.0-37.0 [facility] Comment on above: Performed By: #### 2 155128 ####KADEN [address] [place] [address] MCV 88.8 fL Normal 78.0-100.0 [facility] Comment on above: Performed By: #### 2 198208 ####KADEN [address] [place] [address] Platelet mean volume (PMV) 7.3 fL Low 7.4-11.0 [facility] Comment on above: Performed By: #### 2 [id number] ####KADEN [address] [place] [address] Platelets 218 E3/mcL Normal 130-400 [facility] Comment on above: Performed By: #### 2 183101 ####KADEN [address] [place] [address] WBC (Leukocytes) 10.2 E3/mcL Normal 3.6-11.0 [facility] Comment on above: Performed By: #### 2 786304 ####KADEN [address] [place] [address] Gest Scr Glu 1 Hron 09-04-19 18 Glucose mass conc 113 mg/dL Normal 70-140 [facility] Comment on above: Performed By: #### 2 555794 ####KADEN [address] [place] [address] FISH Probeon 08-13-2017 Protein mass conc SEE BELOW Normal [facility] Comment on above: Result Comment: SPEC IMEN: BLOOD - [id number] INFORMATION:TEST: FISH Analysis of the DiGeorge/VCFS Region [...] Metaphase images: 2The Vysis LSI DARREN Spectrum Randolph Probe contains the DARREN gene (3'non-coding region of TUPLE1, O82M715, and [id number]. The Vysis LSI ARSAspectrum Green Probe includes [...] performance characteristics determinedby the Cytogenetics Laboratory of [facility]. It hasnot been cleared or [...] J Med Barbara 66:250-256,1995. BIGG GARCIA, PH.D., [facility], [facility] 08/16/2017 Performed By: #### F MARIA ####[address] [phone] Progress Noteon 08-13-2017 Senior Financial Analyst Authentication Interface Message Text Met with patient [...] findingsWork History: unemployed. Information on [facility] services given.Consent to share information with FTC team, OB and scanning coordinator signed. Pt plans to deliver in [place] with [facility]. Currently with Dr. Shekhar Dyson.Motorcycle Builder is undecided. [facility] provided and discussed importance ofselection prior to delivery. Female fetus- name is AubrionnaMethod of feeding: breast. Breast feeding booklet givenUltrasound findings today: See report in procedures for details. echocardiogram with Dr. Patel: preliminary finding: Enlarged aorta,umbilical varix, hypoplasia of thymus concerning for diGeorgePt will follow up monthly for reevaluation of growth.Reinforced continued OB care with [facility] until coordinate a transfer of carearound 32-34 weeks.Referral to Mick AGUIRRE for resources due to unemployment and EPDS scoring. MRI ordered for enlarged cisterna magna.The total patient time of the visit was 15 minutes, of which greater than 50% ofthe time was spent counseling and coordinating care. Normal [facility] Senior Financial Analyst Authentication Interface Message Text Thank you for [...] size. There was a patent foramen ovale, ptxooqfic-jq-rzds shunt.Tricuspid valve:Normal tricuspid valve. There was normal [...] 60 minutes spent on the encounter. Normal [facility] Progress Noteon 07-18-2017 Senior Financial Analyst Authentication Interface Message Text [facility] MATERNAL- MEDICINE CONSULTReferring/Requestin g Provider: VINI [...] no palpitations. She usually doesnot see a conservator artifacts, but did have a recent echo due [...] Stroke Maternal Grandmother Heart Disease Maternal Grandmother MS Clotting Disorder Maternal Grandfather Miscarriages / Stillbirths [...] a child 07/18/2017 Consider evaluation with social welfare research worker to assess for any needs duringpregnancy or after. Will have genetic consult with [facility] evaluation. cardiac anomaly complicating , antepartum 07/18/2017 Dilated aortic root seen on ultrasound along with large umbilical cordvarix, dolichocephaly DW Dr. Zazueta, verbal order to refer to [facility] Will be scheduled with pediatric cardiology. Also, patient and family members have a history of learning disabilities,including an individual learning plan in school. She will talk to her familymembers and bring as much information as is available for her genetics consult.She has transportation to [place] and [facility]The total patient time of the visit was 30 minutes, of which was greater than50% of the time was spent counseling and coordinating care. Normal [facility] IGP W/hpv Rfx [id number] 05-07 Diagnosis: See Ref Lab Report Normal [facility] Comment on above: Order Comment: Thin Prep. Performed By: #### 2 [id number] ####KADENMorelia LuceroYhaUoks[address] [place] [address] C Urineon 05-03-2017 C Urine Final Report: Normal skin alonso isolated Normal [facility] Comment on above: Performed By: #### 2 613545 ####KADENMorelia BairdIycNrkr0757 [place] [address] RPRon 05-03-2017 RPR Ql Non-Reactive Normal Non-Reacti ve [facility] Comment on above: Performed By: #### 2 971586 ####KADEN [address] [place] [address] Hep Bs Agon 05-02-2017 BSA (Body Surface Area) Negative Normal Negative [facility] Comment on above: Result Comment: Perf ormed At: [facility] [address] [id number] Vincent PhD Ph:[phone] Performed By: #### 2 403304 ####KADEN [address] [place] [address] ABO/Rh Echoon 05-01-2017 ABO/Rh E Interp... Positive Normal [facility] Comment on above: Performed By: #### 2 715465 ####KADEN [address] [place] [address] Antibody Screen Cap...on Screen Interp... Negative Normal [facility] Comment on above: Performed By: #### 2 233847 ####KADEN BairdEudYkgd6730 [place] [address] Auto Diffon 05-01-2017 Basophils Auto #/vol (Bld) 0.0 E3/mcL Normal 0.0-0.2 [facility] Comment on above: Order Comment: Order Added by Discern Expert. Performed By: #### 2 273197 ####KADEN Urinalysis Manual [address]ty[address] [place] [address] Basophils/100 WBC Auto (Bld) 0.4 % Normal 0.0-2.0 [facility] Comment on above: Order Comment: Order Added by Discern Expert. Performed By: #### 2 576173 ####KADEN Urinalysis Manual [address]flsbpvyo6108 [place] [address] Eos Absolute 0.1 E3/mcL Normal 0.0-0.7 [facility] Comment on above: Order Comment: Order Added by Discern Expert. Performed By: #### 2 740706 ####KADEN Urinalysis Manual Bmipgacyps5787 [place] [address] Eosinophils/100 leukocytes 0.7 % Normal 0.0-11.0 [facility] Comment on above: Order Comment: Order Added by Discern Expert. Performed By: #### 2 364636 ####KADEN Urinalysis Manual [address] [place] [address] Lymphocytes 1.8 E3/mcL Normal 1.2-3.4 [facility] Comment on above: Order Comment: Order Added by Discern Expert. Performed By: #### 2 332382 ####KADEN Urinalysis Manual [address]qcxiol[address] [place] [address] Lymphocytes/100 leukocytes 17.1 % Low 20.0-55.0 [facility] Comment on above: Order Comment: Order Added by Discern Expert. Performed By: #### 2 424857 ####KADEN Urinalysis Manual [address]keqv[address] [place] [address] [place] Absolute 0.5 E3/mcL Normal 0.0-0.7 [facility] Comment on above: Order Comment: Order Added by Discern Expert. Performed By: #### 2 412897 ####KADEN Urinalysis Manual Vavqyzvxsi[address] [place] [address] Monocytes/100 leukocytes 5.0 % Normal 0.0-10.0 [facility] Comment on above: Order Comment: Order Added by Discern Expert. Performed By: #### 2 548551 ####KADEN Urinalysis Manual Kjlmpcsk[address] [place] [address] Neutro Absolute 8.0 E3/mcL High 1.4-6.5 [facility] Comment on above: Order Comment: Order Added by Discern Expert. Performed By: #### 2 159577 ####KADEN Urinalysis Manual Vcqrujbhqm6406 [place] [address] Neutro Auto 76.8 % High 37.0-75.0 [facility] Comment on above: Order Comment: Order Added by Discern Expert. Performed By: #### 2 244199 ####KADEN Urinalysis Manual [address]wmghibwqe[address] [place] [address] CBC w/ Auto Diffon 7 Erythrocyte distribution width Auto Ratio (RBC) 15.2 % High 11.5-14.5 [facility] Comment on above: Performed By: #### 2 962289 ####KADEN Urinalysis Manual [address]ok[address] [place] [address] Erythrocytes (RBC) 4.90 E6/mcL Normal 3.90-5.40 [facility] Comment on above: Performed By: #### 2 198059 ####KADEN Urinalysis Manual Vrpusnpsaq018[address] [place] [address] Hematocrit (HCT) 41.1 % Normal 36.0-48.0 [facility] Comment on above: Performed By: #### 2 094370 ####KADEN Urinalysis Manual Qltvrnxbhe[address] [place] [address] Hemoglobin mass conc (Bld) 13.5 g/dL Normal 12.0-16.0 [facility] Comment on above: Performed By: #### 2 729060 ####KADEN Urinalysis Manual Gxwkqqirgm1399[address] [place] [address] MCH 27.5 pg Normal 27.0-31.0 [facility] Comment on above: Performed By: #### 2 640519 ####KADEN Urinalysis Manual Icelspcetz027[address] [place] [address] MCHC mass conc (RBC) 32.8 g/dL Low 33.0-37.0 [facility] Comment on above: Performed By: #### 2 769177 ####KADEN Urinalysis Manual Qdampfzgdy[address] [place] [address] MCV 83.9 fL Normal 78.0-100.0 [facility] Comment on above: Performed By: #### 2 945043 ####KADEN Urinalysis Manual Vrtlwpvypc[address] [place] [address] Platelet mean volume (PMV) 8.0 fL Normal 7.4-11.0 [facility] Comment on above: Performed By: #### 2 470961 ####KADEN Urinalysis Manual Sjsawwcgxg[address] [place] [address] Platelets 246 E3/mcL Normal 130-400 [facility] Comment on above: Performed By: #### 2 996880 ####KADEN Urinalysis Manual Yaveyqkazc[address] [place] [address] WBC (Leukocytes) 10.4 E3/mcL Normal 3.6-11.0 [facility] Comment on above: Performed By: #### 2 583699 ####K[place] [address] Chlamydia GC by PCRon 2016 Chlamydia by PCR. Not Detected Normal Not Detected [facility] Comment on above: Result Comment: Xper t CT/NG Assay performance has not been evaluated in patients less than 14 years of age. Performed By: #### 2 783179 ####KADEN ShrOkpm1546 [place] [address] Gonorrhoeae by PCR Not Detected Normal Not Detected [facility] Comment on above: Result Comment: Xper t CT/NG Assay performance has not been evaluated in patients less than 14 years of age. Performed By: #### 2 235041 ####KADEN FvjJula9770 [place] [address] HIV-1/2 Ag/Abon 05-01-2017 HIV-1/2 Ag/Ab Non-Reactive Normal Non-Reacti ve [facility] Comment on above: Performed By: #### 2 246221 ####KADEN Urinalysis Manual [place] [id number] Rubella IgG Lvlon 05-01-2017 Rubella IgG Lvl 50.8 (POS) Normal [facility] Comment on above: Result Comment: <10I U/ml NON REACTIVE: NOT AKIECL96-54 IU/ml RUBELLA SPECIFIC AB PRESENT, EVALUATEFURTHER TO DETERMINE IMMUNE STATUS >15 IU/ml REACTIVE, IMMUNE Performed By: #### 2 004229 ####KADEN XtaQiae9186 [place] [address] Auto Diffon 04-22-2017 Basophils Auto #/vol (Bld) 0.1 E3/mcL Normal 0.0-0.2 [facility] Comment on above: Order Comment: Order Added by Discern Expert. Performed By: #### 2 116367 ####KADEN Urinalysis Manual W[address]osl[address] [place] [address] Basophils/100 WBC Auto (Bld) 0.6 % Normal 0.0-2.0 [facility] Comment on above: Order Comment: Order Added by Discern Expert. Performed By: #### 2 778833 ####KADEN Urinalysis Manual Jscvxobocg[address] [place] [address] Eos Absolute 0.0 E3/mcL Normal 0.0-0.7 [facility] Comment on above: Order Comment: Order Added by Discern Expert. Performed By: #### 2 147936 ####KADEN Urinalysis Manual [address]qolbkhyao[address] [place] [address] Eosinophils/100 leukocytes 0.2 % Normal 0.0-11.0 [facility] Comment on above: Order Comment: Order Added by Discern Expert. Performed By: #### 2 878784 ####KADEN Urinalysis Manual Xkefsdpldd[address] [place] [address] Lymphocytes 1.5 E3/mcL Normal 1.2-3.4 [facility] Comment on above: Order Comment: Order Added by Discern Expert. Performed By: #### 2 691632 ####KADEN Urinalysis Manual Rnhgwqshqn[address] [place] [address] Lymphocytes/100 leukocytes 10.8 % Low 20.0-55.0 [facility] Comment on above: Order Comment: Order Added by Discern Expert. Performed By: #### 2 962400 ####KADEN Urinalysis Manual Bbmyvxhkfv6256[address] [place] [address] [place] Absolute 0.6 E3/mcL Normal 0.0-0.7 [facility] Comment on above: Order Comment: Order Added by Discern Expert. Performed By: #### 2 685964 ####KADEN Urinalysis Manual Lgysvawqae[address] [place] [address] Monocytes/100 leukocytes 4.4 % Normal 0.0-10.0 [facility] Comment on above: Order Comment: Order Added by Discern Expert. Performed By: #### 2 523648 ####KADEN Urinalysis Manual Iakeyjhzxi[address] [place] [address] Neutro Absolute 11.3 E3/mcL High 1.4-6.5 [facility] Comment on above: Order Comment: Order Added by Discern Expert. Performed By: #### 2 743234 ####KADEN Urinalysis Manual Zdykpvkuev[address] [place] [address] Neutro Auto 84.0 % High 37.0-75.0 [facility] Comment on above: Order Comment: Order Added by Discern Expert. Performed By: #### 2 233712 ####KADEN Urinalysis Manual Awerrqthgd[address] [place] [address] BMPon 04-22-2017 BUN/Creatinine Ratio Unable to calc Normal 5.4-30.0 [facility] Comment on above: Performed By: #### 2 507367 ####KADEN Urinalysis Manual [address]uslkenvdq[address] [place] [address] Creatinine mg/dL Low 0.6-1.3 [facility] Comment on above: Performed By: #### 2 062528 ####KADEN Urinalysis Manual Ahmpfcowbq[address] [place] [address] Urea nitrogen 7 mg/dL Normal 7-18 [facility] Comment on above: Performed By: #### 2 839529 ####KADEN Urinalysis Manual Ypmjanvahf[address] [place] [address] Calcium 9.6 mg/dL Normal 8.4-10.2 [facility] Comment on above: Performed By: #### 2 643343 ####KADEN Urinalysis Manual Bfuobriqgx[address] [place] [address] Chloride 103 mmol/L Normal 98-107 [facility] Comment on above: Performed By: #### 2 357715 ####KADEN Urinalysis Manual [address]wh[address]se6898 [place] [address] CO2 21.7 mmol/L Low 24.0-30.0 [facility] Comment on above: Performed By: #### 2 214631 ####KADEN Urinalysis Manual Mxksmnkizn[address] [place] [address] Glucose mass conc 89 mg/dL Normal 70-99 [facility] Comment on above: Performed By: #### 2 087866 ####KADEN Urinalysis Manual Dauprjyuwl[address] [place] [address] Potassium molar conc 3.6 mmol/L Normal 3.5-5.1 [facility] Comment on above: Performed By: #### 2 960146 ####KADEN Urinalysis Manual Onczsvtmla[address] [place] [address] Sodium 136 mmol/L Normal 136-145 [facility] Comment on above: Performed By: #### 2 399824 ####KADEN Urinalysis Manual Igzxsskono[address] [place] [address] CBC w/ Auto Diffon 7 Erythrocyte distribution width Auto Ratio (RBC) 14.8 % High 11.5-14.5 [facility] Comment on above: Performed By: #### 2 376040 ####KADEN Urinalysis Manual Bxwhxwfjhw[address] [place] [address] Erythrocytes (RBC) 4.96 E6/mcL Normal 3.90-5.40 [facility] Comment on above: Performed By: #### 2 744471 ####KADEN Urinalysis Manual Sbalvzqzna159[address] [place] [address] Hematocrit (HCT) 40.9 % Normal 36.0-48.0 [facility] Comment on above: Performed By: #### 2 254130 ####KADEN Urinalysis Manual Mlotrhoxvg[address] [place] [address] Hemoglobin mass conc (Bld) 13.5 g/dL Normal 12.0-16.0 [facility] Comment on above: Performed By: #### 2 734044 ####KADEN Urinalysis Manual Xealcloxcv676[address] [place] [address] MCH 27.2 pg Normal 27.0-31.0 [facility] Comment on above: Performed By: #### 2 882981 ####KADEN Urinalysis Manual [address]awpapzztj0844 [place] [address] MCHC mass conc (RBC) 33.0 g/dL Normal 33.0-37.0 [facility] Comment on above: Performed By: #### 2 933344 ####KADEN Urinalysis Manual Cqguojlhka[address] [place] [address] MCV 82.4 fL Normal 78.0-100.0 [facility] Comment on above: Performed By: #### 2 140844 ####KADEN Urinalysis Manual Ymtgpmkmci99[address] [place] [address] Platelet mean volume (PMV) 8.0 fL Normal 7.4-11.0 [facility] Comment on above: Performed By: #### 2 402660 ####KADEN Urinalysis Manual Wgsgjfxpyl16[address] [place] [address] Platelets 237 E3/mcL Normal 130-400 [facility] Comment on above: Performed By: #### 2 455444 ####KADEN Urinalysis Manual Qsorgcxrph214[address] [place] [address] WBC (Leukocytes) 13.5 E3/mcL High 3.6-11.0 [facility] Comment on above: Performed By: #### 2 534013 ####KADEN Urinalysis Manual Yjellzrejd[address] [place] [address] UA Completeon 04-22-2017 UA Blood Negative Normal Negative [facility] Comment on above: Performed By: #### 2 534698 ####KADEN Urinalysis Manual Qptyyogesm1935 [place] [address] UA Ascorbic Acid 40 mg/dL High <=19 [facility] Comment on above: Performed By: #### 2 253092 ####KADEN Urinalysis Manual Qdyzbofylu[address] [place] [address] UA Bacteria 3+ /HPF Abnormal None [facility] Comment on above: Performed By: #### 2 809302 ####KADEN Urinalysis Manual Vjmxngpllv[address] [place] [address] UA Clarity SltCloudy Abnormal Clear [facility] Comment on above: Performed By: #### 2 812220 ####KADEN Urinalysis Manual Rqunjkzjhv[address] [place] [address] UA Leuk Est Negative Normal Negative [facility] Comment on above: Performed By: #### 2 742008 ####KADEN Urinalysis Manual Byridkfnkh9399[address] [place] [address] UA Mucous Few Abnormal Trace [facility] Comment on above: Performed By: #### 2 807559 ####KADEN Urinalysis Manual Dtzxqvrvnt8[address] [place] [address] UA Nitrite Negative Normal Negative [facility] Comment on above: Performed By: #### 2 185461 ####KADEN Urinalysis Manual Matioljssq[address] [place] [address] UA pH 8.0 Normal 4.6-8.0 [facility] Comment on above: Performed By: #### 2 610897 ####KADEN Urinalysis Manual Dxsujbfisb124[address] [place] [address] UA Protein Negative Normal Negative [facility] Comment on above: Performed By: #### 2 470083 ####KADEN Urinalysis Manual Tjipsgzjxu[address] [place] [address] UA Spec Grav 1.012 Normal 1.003-1.03 0 [facility] Comment on above: Performed By: #### 2 022119 ####KADEN Urinalysis Manual Etzyidybpl4680[address] [place] [address] UA Squam Epithelial 0-5 Normal 0-5 [facility] Comment on above: Performed By: #### 2 678172 ####KADEN Urinalysis Manual Rexnmtqabc1325[address] [place] [address] UA Urobilinogen Negative Normal [facility] Comment on above: Performed By: #### 2 449523 ####KADEN Urinalysis Manual Bzgtaruwsd356[address] [place] [address] UA WBC 0-5 Normal 0-5 [facility] Comment on above: Performed By: #### 2 870222 ####KADEN Urinalysis Manual Si[address]yonlbo0267 [place] [address] Urine, color Yellow Normal Yellow [facility] Comment on above: Performed By: #### 2 138733 ####KADEN Urinalysis Manual Djrlwnvoaf[address] [place] [address] Urine, glucose Negative Normal Negative [facility] Comment on above: Performed By: #### 2 822278 ####KADEN Urinalysis Manual Jyxspqwhbs864[address] [place] [address] Urine, ketones presence 1+ Abnormal Negative [facility] Comment on above: Performed By: #### 2 723835 ####KADEN Urinalysis Manual Ckoxbdazwj3335[address] [place] [address] Urine, urobilinogen Negative Normal Negative [facility] Comment on above: Performed By: #### 2 127668 ####KADEN Urinalysis Manual Ssxddjrphp[address] [place] [address] eGFRon 04-22-2017 eGFR AA >60 Normal [facility] Comment on above: Order Comment: Order added by Discern Expert. Performed By: #### 2 735978 ####KADEN Urinalysis Manual Aylwrqwqra[address]25[address] [place] [address] eGFR (non-black) mL/min/{1.73_m2} Normal [facility] Comment on above: Order Comment: Order added by Discern Expert. Performed By: #### 2 876844 ####KADEN Urinalysis Manual Kkfddlghdx[address] [place] [address] C Urineon 04-20-2017 C Urine Final Report: Normal skin alonso isolated Normal [facility] Comment on above: Performed By: #### 2 702014 ####KADEN Urinalysis Manual Rjdfieotwi1666 [place] [address] BMPon 04-18-2017 BUN/Creatinine Ratio 15.0 ratio Normal 5.4-30.0 [facility] Comment on above: Performed By: #### 2 105880 ####KADEN GdpLukj378252 [place] [address] Creatinine 0.6 mg/dL Normal 0.6-1.3 [facility] Comment on above: Performed By: #### 2 087842 ####KADEN HahOzsk1477 [place] [address] Urea nitrogen 9 mg/dL Normal 7-18 [facility] Comment on above: Performed By: #### 2 343510 ####KADEN JqdSczf0201 [place] [address] Calcium 9.6 mg/dL Normal 8.4-10.2 [facility] Comment on above: Performed By: #### 2 511340 ####KADEN JzpGhgc9587 [place] [address] Chloride 102 mmol/L Normal 98-107 [facility] Comment on above: Performed By: #### 2 110775 ####KADEN LfcTwtt2045 [place] [address] CO2 23.3 mmol/L Low 24.0-30.0 [facility] Comment on above: Performed By: #### 2 591630 ####KADEN BrlIqwq6890 [place] [address] Glucose mass conc 93 mg/dL Normal 70-99 [facility] Comment on above: Performed By: #### 2 121355 ####KADEN BqdNxfy7126 [place] [address] Potassium molar conc 3.5 mmol/L Normal 3.5-5.1 [facility] Comment on above: Performed By: #### 2 159572 ####KADEN IdgEldc8944 [place] [address] Sodium 136 mmol/L Normal 136-145 [facility] Comment on above: Performed By: #### 2 002669 ####KADEN FmoRwwk8166 [place] [address] UA Completeon 04-18-2017 UA Blood Negative Normal Negative [facility] Comment on above: Performed By: #### 2 986496 ####KADEN Urinalysis Manual Cljlkhfpsk5068 [place] [address] UA Amorph Chastity 2+ /HPF Abnormal None [facility] Comment on above: Performed By: #### 2 023772 ####KADEN Urinalysis Manual Wntpvehpwk9557 [place] [address] UA Ascorbic Acid 40 mg/dL High <=19 [facility] Comment on above: Performed By: #### 2 621791 ####KADEN Urinalysis Manual Odwogdkoad7666 [place] [address] UA Clarity Cloudy Abnormal Clear [facility] Comment on above: Performed By: #### 2 197124 ####KADEN Urinalysis Manual Myakjgotwx[address] [place] [address] UA Leuk Est Negative Normal Negative [facility] Comment on above: Performed By: #### 2 069278 ####KADEN Urinalysis Manual Hndqtfzgoq[address] [place] [address] UA Mucous Trace Abnormal Trace [facility] Comment on above: Performed By: #### 2 663054 ####KADEN Urinalysis Manual Xtpblqmytt739[address] [place] [address] UA Nitrite Negative Normal Negative [facility] Comment on above: Performed By: #### 2 779792 ####KADEN Urinalysis Manual Gklkanlzxx1999[address] [place] [address] UA pH 7.0 Normal 4.6-8.0 [facility] Comment on above: Performed By: #### 2 225049 ####KADEN Urinalysis Manual Xhlslievpq[address] [place] [address] UA Protein Negative Normal Negative [facility] Comment on above: Performed By: #### 2 538902 ####KADEN Urinalysis Manual Agvkmpjdqp032[address] [place] [address] UA Spec Grav 1.018 Normal 1.003-1.03 0 [facility] Comment on above: Performed By: #### 2 601722 ####KADEN Urinalysis Manual Xbaypdaxxa[address] [place] [address] UA Squam Epithelial 0-5 Normal 0-5 [facility] Comment on above: Performed By: #### 2 136262 ####KADEN Urinalysis Manual Yikrofqwnr9[address] [place] [address] UA Urobilinogen Negative Normal [facility] Comment on above: Performed By: #### 2 063416 ####KADEN Urinalysis Manual Tcdnyifdya[address] [place], [place] [address] Urine, color Yellow Normal Yellow [facility] Comment on above: Performed By: #### 2 047741 ####KADEN Urinalysis Manual Sapkebvuch[address] [place] [address] Urine, glucose Negative Normal Negative [facility] Comment on above: Performed By: #### 2 025914 ####KAEDN Urinalysis Manual Zkscwclbqm[address] [place] [address] Urine, ketones presence 2+ Abnormal Negative [facility] Comment on above: Performed By: #### 2 [id number] ####KADEN Urinalysis Manual [address] [place] [address] Urine, urobilinogen Negative Normal Negative [facility] Comment on above: Performed By: #### 2 [id number] ####KADEN Urinalysis Manual [address] [place] [address] eGFRon 04-18-2017 eGFR (non-black) mL/min/{1.73_m2} Normal [facility] Comment on above: Order Comment: Order added by Discern Expert. Performed By: #### 1 [id number] ####KADEN XnzEqgc7270 [place] [address] eGFR AA >60 Normal [facility] Comment on above: Order Comment: Order added by Discern Expert. Performed By: #### 1 [id number] ####KADEN UvtXigw2675 [place] [address] Auto Diffon 04-11-2017 Basophils Auto #/vol (Bld) 0.1 E3/mcL Normal 0.0-0.2 [facility] Comment on above: Order Comment: Order Added by Discern Expert. Performed By: #### 2 [id number] ####KADEN OssUnrn7072 [place] [address] Basophils/100 WBC Auto (Bld) 0.7 % Normal 0.0-2.0 [facility] Comment on above: Order Comment: Order Added by Discern Expert. Performed By: #### 2 [id number] ####KADEN GcoPczo5095 [place] [address] Eos Absolute 0.0 E3/mcL Normal 0.0-0.7 [facility] Comment on above: Order Comment: Order Added by Discern Expert. Performed By: #### 2 [id number] ####KADEN BairdJemBogh7528 [place] [address] Eosinophils/100 leukocytes 0.1 % Normal 0.0-11.0 [facility] Comment on above: Order Comment: Order Added by Discern Expert. Performed By: #### 2 [id number] ####KADEN BairdXzqOldf8909 [place] [address] Lymphocytes 1.5 E3/mcL Normal 1.2-3.4 [facility] Comment on above: Order Comment: Order Added by Discern Expert. Performed By: #### 2 [id number] ####KADEN BairdBesJfep4950 [place] [address] Lymphocytes/100 leukocytes 17.2 % Low 20.0-55.0 [facility] Comment on above: Order Comment: Order Added by Discern Expert. Performed By: #### 2 [id number] ####KADEN BairdGsgYbnl3253 [place] [address] [place] Absolute 0.6 E3/mcL Normal 0.0-0.7 [facility] Comment on above: Order Comment: Order Added by Discern Expert. Performed By: #### 2 [id number] ####KADEN BairdZgjIhop3059 [place] [address] Monocytes/100 leukocytes 6.6 % Normal 0.0-10.0 [facility] Comment on above: Order Comment: Order Added by Discern Expert. Performed By: #### 2 [id number] ####KADEN BairdKywFxjx0705 [place] [address] Neutro Absolute 6.7 E3/mcL High 1.4-6.5 [facility] Comment on above: Order Comment: Order Added by Discern Expert. Performed By: #### 2 260662 ####KADEN BairdCoqMqjs3018 [place] [address] Neutro Auto 75.4 % High 37.0-75.0 [facility] Comment on above: Order Comment: Order Added by Discern Expert. Performed By: #### 2 [id number] ####KADEN Luceroo1025 [place] [address] BMPon 04-11-2017 BUN/Creatinine Ratio 12.9 ratio Normal 5.4-30.0 [facility] Comment on above: Performed By: #### 2 [id number] ####KADEN RqpVaph5798 [place] [address] Creatinine 0.7 mg/dL Normal 0.6-1.3 [facility] Comment on above: Performed By: #### 2 [id number] ####KADEN WtoXlap9700 [place] [address] Urea nitrogen 9 mg/dL Normal 7-18 [facility] Comment on above: Performed By: #### 2 400494 ####KADEN ScdAogv2762 [place] [address] Calcium 9.5 mg/dL Normal 8.4-10.2 [facility] Comment on above: Performed By: #### 2 467166 ####KADEN HtbUqbd1002 [place] [address] Chloride 105 mmol/L Normal 98-107 [facility] Comment on above: Performed By: #### 2 724108 ####KADEN EkmSrnt2608 [place] [address] CO2 22.5 mmol/L Low 24.0-30.0 [facility] Comment on above: Performed By: #### 2 917944 ####KADEN QwrKndz0787 [place] [address] Glucose mass conc 92 mg/dL Normal 70-99 [facility] Comment on above: Performed By: #### 2 914571 ####KADEN AebZaws0954 [place] [address] Potassium molar conc 3.6 mmol/L Normal 3.5-5.1 [facility] Comment on above: Performed By: #### 2 461095 ####KADEN JluFjaf5783 [place] [address] Sodium 137 mmol/L Normal 136-145 [facility] Comment on above: Performed By: #### 2 469170 ####KADEN CzqXuaw7997 [place] [address] BhCG Quanton 04-11-2017 Beta hCG Qnt 8564.0 mIU/m Normal [facility] Comment on above: Result Comment: FEMA LE (NON-) & MALE <3 BORDERLINE 3 - 5 SUGGEST REPEAT TESTING FEMALE () 1 D - 1 WK 5 - 50 1 - 2 WK 50 - 500 2 - 3 WK 100 - 5000 3 - 4 WK 500 - 67648 4 - 5 WK 1000 - 59814 5 - 6 WK 01183 - 890026 6 - 8 WK 00770 - 112658 2 - 3 [place] [address] - 167357 Performed By: #### 2 [id number] ####KADEN BairdHcgCrnk4084 [place] [address] CBC w/ Auto Diffon 7 Erythrocyte distribution width Auto Ratio (RBC) 13.9 % Normal 11.5-14.5 [facility] Comment on above: Performed By: #### 2 [id number] ####KADEN BairdFkoHxbr5911 [place] [address] Erythrocytes (RBC) 4.63 E6/mcL Normal 3.90-5.40 [facility] Comment on above: Performed By: #### 2 606407 ####KADEN BairdNsdLdwk9161 [place] [address] Hematocrit (HCT) 38.2 % Normal 36.0-48.0 [facility] Comment on above: Performed By: #### 2 716710 ####KADEN BairdCapLtpy1444 [place] [address] Hemoglobin mass conc (Bld) 12.6 g/dL Normal 12.0-16.0 [facility] Comment on above: Performed By: #### 2 779172 ####KADEN BairdPskRspn6462 [place] [address] MCH 27.2 pg Normal 27.0-31.0 [facility] Comment on above: Performed By: #### 2 926950 ####KADEN BairdPhoVclv5788 [place] [address] MCHC mass conc (RBC) 33.0 g/dL Normal 33.0-37.0 [facility] Comment on above: Performed By: #### 2 332600 ####KADEN ZvjCaro6754 [place] [address] MCV 82.6 fL Normal 78.0-100.0 [facility] Comment on above: Performed By: #### 2 857091 ####KADEN BairdNcxIctg3966 [place] [address] Platelet mean volume (PMV) 8.0 fL Normal 7.4-11.0 [facility] Comment on above: Performed By: #### 2 589633 ####KADEN BairdDpaZsuf1591 [place] [address] Platelets 233 E3/mcL Normal 130-400 [facility] Comment on above: Performed By: #### 2 618902 ####KADEN BairdJubNmkt4188 [place] [address] WBC (Leukocytes) 9.0 E3/mcL Normal 3.6-11.0 [facility] Comment on above: Performed By: #### 2 494880 ####KADEN BairdPugZrid1445 [place] [address] UA Completeon 04-11-2017 UA Blood Negative Normal Negative [facility] Comment on above: Result Comment: High concentration of Ascorbic Acid present in urine. This may cause False Negative Occ Blood. Review microscopic results and patient's clinical symptoms. Performed By: #### 8 [id number] ####KADEN Urinalysis Automated Srbcqzxidl2228 [place] [address] UA Amorph Chastity 1+ /HPF Abnormal None [facility] Comment on above: Performed By: #### 8 [id number] ####KADEN Urinalysis Automated Qljyugtqcu5196 [place] [address] UA Ascorbic Acid 40 mg/dL High <=19 [facility] Comment on above: Performed By: #### 8 [id number] ####KADEN Urinalysis Automated Yfzoffggem6032 [place] [address] UA Bacteria Trace Abnormal None [facility] Comment on above: Performed By: #### 8 [id number] ####KADEN Urinalysis Automated [address]qvb9451 [place] 7[address] UA Clarity Cloudy Abnormal Clear [facility] Comment on above: Performed By: #### 8 [id number] ####KADEN Urinalysis Automated Puucllodnk2915 [place] 7673[address] UA Leuk Est Negative Normal Negative [facility] Comment on above: Performed By: #### 8 [id number] ####KADEN Urinalysis Automated Pblsncjnvh8719 [place] [address] UA Mucous Few Abnormal Trace [facility] Comment on above: Performed By: #### 8 [id number] ####KADEN Urinalysis Automated Igzdjdewqy0080 [place] [address] UA Nitrite Negative Normal Negative [facility] Comment on above: Performed By: #### 8 [id number] ####KADEN Urinalysis Automated Scqgvjaslk7234 [place] [address] UA pH 7.0 Normal 4.6-8.0 [facility] Comment on above: Performed By: #### 8 [id number] ####KADEN Urinalysis Automated [address] [place] [address] UA Protein Negative Normal Negative [facility] Comment on above: Performed By: #### 8 [id number] ####KADEN Urinalysis Automated Yj[address]ef[address] [place] [address] UA Spec Grav 1.025 Normal 1.003-1.03 0 [facility] Comment on above: Performed By: #### 8 [id number] ####KADEN Urinalysis Automated Breq[address] [place] [address] UA Squam Epithelial 5-10 Abnormal 0-5 [facility] Comment on above: Performed By: #### 8 [id number] ####KADEN Urinalysis Automated Prhhcjonnk2641 [place] [address] UA Urobilinogen 2.0 mg/dL Abnormal [facility] Comment on above: Performed By: #### 8 [id number] ####KADEN Urinalysis Automated [address]vl[address]dpz[address] [place] [address] Urine, color Yellow Normal Yellow [facility] Comment on above: Performed By: #### 8 [id number] ####KADEN Urinalysis Automated Ssukmuhhmg[address] [place] [address] Urine, erythrocytes 0-3 Normal 0-3 [facility] Comment on above: Performed By: #### 8 [id number] ####KADEN Urinalysis Automated Ueblingham0456 [place] 7673[address] Urine, glucose Negative Normal Negative [facility] Comment on above: Performed By: #### 8 [id number] ####KADEN Urinalysis Automated Odjhonsafn7929 [place] [address] Urine, ketones presence 2+ Abnormal Negative [facility] Comment on above: Performed By: #### 8 [id number] ####KADEN Urinalysis Automated Dsbsltvnin3939 [place] [address] Urine, urobilinogen Negative Normal Negative [facility] Comment on above: Performed By: #### 8 [id number] ####KADEN Urinalysis Automated N[address] [place] [address] eGFRon 04-11-2017 eGFR (non-black) mL/min/{1.73_m2} Normal [facility] Comment on above: Order Comment: Order added by Discern Expert. Performed By: #### 1 [id number] ####KADEN ArzXbbc2352 [place] [address] eGFR AA >60 Normal [facility] Comment on above: Order Comment: Order added by Discern Expert. Performed By: #### 1 [id number] ####KADEN ZuePmnp0345 [place] [address] U BhCG Qlton 03-20-2017 HCG.beta subunit Qn Negative Normal Neg [facility] Comment on above: Performed By: #### 2 [id number] ####KADEN Urinalysis Manual [address] [place] [address] UA Completeon 03-20-2017 UA Blood Negative Normal Negative [facility] Comment on above: Performed By: #### 8 [id number] ####KADEN Urinalysis Automated Hysqpntdqu1498 [place] [address] UA Amorph Chastity 1+ /HPF Abnormal None [facility] Comment on above: Performed By: #### 8 [id number] ####KADEN Urinalysis Automated Acbonbyyqa2155 [place] [address] UA Bacteria 2+ /HPF Abnormal None [facility] Comment on above: Performed By: #### 8 [id number] ####KADEN Urinalysis Automated Bmfvqudqzv1425 [place] [address] UA Clarity Cloudy Abnormal Clear [facility] Comment on above: Performed By: #### 8 [id number] ####KADEN Urinalysis Automated Zicvomucay5227 [place] [address] UA Leuk Est 1+ Abnormal Negative [facility] Comment on above: Performed By: #### 8 [id number] ####KADEN Urinalysis Automated Entbyrsaqv8955 [place] [address] UA Mucous Occasional Abnormal Trace [facility] Comment on above: Performed By: #### 8 [id number] ####KADEN Urinalysis Automated Idctrrgcbl4467 [place] 7673[address] UA Nitrite Negative Normal Negative [facility] Comment on above: Performed By: #### 8 [id number] ####KADEN Urinalysis Automated G[address]zzahbfu[address] [place] [address] UA pH 6.0 Normal 4.6-8.0 [facility] Comment on above: Performed By: #### 8 [id number] ####KADEN Urinalysis Automated [address]ymfwxlhx[address] [place] [address] UA Protein 1+ Abnormal Negative [facility] Comment on above: Performed By: #### 8 [id number] ####KADEN Urinalysis Automated [address]vmouzwlw[address] [place] [address] UA Spec Grav 1.019 Normal 1.003-1.03 0 [facility] Comment on above: Performed By: #### 8 [id number] ####KADEN Urinalysis Automated Wptjabqawb9219 [place] [address] UA Squam Epithelial 5-10 Abnormal 0-5 [facility] Comment on above: Performed By: #### 8 [id number] ####KADEN Urinalysis Automated Ctjaiwubyr4546 [place] [address] UA Urobilinogen Negative Normal [facility] Comment on above: Performed By: #### 8 [id number] ####KADEN Urinalysis Automated [address] [place] [address] UA WBC >50 Abnormal 0-5 [facility] Comment on above: Performed By: #### 8 [id number] ####KADEN Urinalysis Automated Gawljvafre2734 [place] 7673[address] Urine, color Yellow Normal Yellow [facility] Comment on above: Performed By: #### 8 [id number] ####KADEN Urinalysis Automated Lscummamfq7896 [place] [address] Urine, erythrocytes 5-10 Abnormal 0-3 [facility] Comment on above: Performed By: #### 8 [id number] ####KADEN Urinalysis Automated Laghhmmlnq5431 [place] [address] Urine, glucose Negative Normal Negative [facility] Comment on above: Performed By: #### 8 [id number] ####KADEN Urinalysis Automated Wfcogsqgwt6907 [place] [address] Urine, ketones presence Negative Normal Negative [facility] Comment on above: Performed By: #### 8 [id number] ####KADEN Urinalysis Automated Xuhezzbxlz5667 [place] [address] Urine, urobilinogen Negative Normal Negative [facility] Comment on above: Performed By: #### 8 [id number] ####KADEN Urinalysis Automated Dqtdtgiuqj8711 [place] [address] Vital Signs Date Time Vital Sign Value Performing Clinician Facility 12-14-2024 10:45-0400 Body mass index (BMI) [Ratio] 28.12 kg/m2 Cuong Diana DO Work Phone: [facility] 12-14-2024 10:45-0400 Body weight 79.04 kg Cuong Diana DO Work Phone: [facility] 12-14-2024 10:45-0400 Diastolic blood pressure 82 mm[Hg] Cuong Diana DO Work Phone: [facility] 12-14-2024 10:45-0400 Systolic blood pressure 118 mm[Hg] Cuong Diana DO Work Phone: [facility] 11-23-2024 14:56-0400 Body mass index (BMI) [Ratio] 27.6 kg/m2 Cuong Diana DO Work Phone: [facility] 11-23-2024 14:56-0400 Body weight 77.56 kg Cuong Diana DO Work Phone: [facility] 11-23-2024 14:56-0400 Diastolic blood pressure 76 mm[Hg] Cuogn Diana DO Work Phone: [facility] 11-23-2024 14:56-0400 Systolic blood pressure 122 mm[Hg] Cuong Diana DO Work Phone: [facility] 11-16-2024 13:44-0400 Body height 165.1 cm Malachi Macdonald MD Work Phone: [facility] 11-16-2024 13:44-0400 Body mass index (BMI) [Ratio] 28.79 kg/m2 Malachi Macdonald MD Work Phone: [facility] 11-16-2024 13:44-0400 Body weight 78.47 kg Malachi Macdonald MD Work Phone: [facility] 11-16-2024 13:44-0400 Diastolic blood pressure 77 mm[Hg] Malachi Macdonald MD Work Phone: [facility] 11-16-2024 13:44-0400 Heart rate 87 /min Malachi Macdonald MD Work Phone: [facility] 11-16-2024 13:44-0400 Systolic blood pressure 117 mm[Hg] Malachi Macdonald MD Work Phone: [facility] 11-10-2024 10:27-0400 Body mass index (BMI) [Ratio] 27.92 kg/m2 Cuong Diana DO Work Phone: [facility] 11-10-2024 10:27-0400 Body weight 78.47 kg Cuong Diana DO Work Phone: [facility] 11-10-2024 10:27-0400 Diastolic blood pressure 60 mm[Hg] Cuong Diana DO Work Phone: [facility] 11-10-2024 10:27-0400 Systolic blood pressure 110 mm[Hg] Cuong Diana DO Work Phone: [facility] 10-26-2024 11:46-0400 Body mass index (BMI) [Ratio] 27.34 kg/m2 Cuong Diana DO Work Phone: [facility] 10-26-2024 11:46-0400 Body weight 76.84 kg Cuong Diana DO Work Phone: [facility] 10-26-2024 11:46-0400 Diastolic blood pressure 70 mm[Hg] Cuong Diana DO Work Phone: [facility] 10-26-2024 11:46-0400 Systolic blood pressure 120 mm[Hg] Cuong Diana DO Work Phone: [facility] 10-12-2024 09:30-0400 Body mass index (BMI) [Ratio] 27.16 kg/m2 Cuong Diana DO Work Phone: [facility] 10-12-2024 09:30-0400 Body weight 76.32 kg Cuong Diana DO Work Phone: [facility] 10-12-2024 09:30-0400 Diastolic blood pressure 78 mm[Hg] Cuong Diana DO Work Phone: [facility] 10-12-2024 09:30-0400 Systolic blood pressure 120 mm[Hg] Cuong Diana DO Work Phone: [facility] 09-28-2024 13:39-0400 Diastolic blood pressure 74 mm[Hg] Malachi Macdonald MD Work Phone: [facility] 09-28-2024 13:39-0400 Heart rate 79 /min Malachi Macdonald MD Work Phone: [facility] 09-28-2024 13:39-0400 Systolic blood pressure 114 mm[Hg] Malachi Macdonald MD Work Phone: [facility] 09-10-2024 11:56-0400 Body mass index (BMI) [Ratio] 26.76 kg/m2 Cuong Diana DO Work Phone: [facility] 09-10-2024 11:56-0400 Body weight 75.21 kg Cuong Diana DO Work Phone: [facility] 09-10-2024 11:56-0400 Diastolic blood pressure 80 mm[Hg] Cuong Diana DO Work Phone: [facility] 09-10-2024 11:56-0400 Systolic blood pressure 110 mm[Hg] Cuong Diana DO Work Phone: [facility] 08-27-2024 14:22-0400 Body mass index (BMI) [Ratio] 27.12 kg/m2 Ashwin Packer MD Work Phone: [facility] 08-27-2024 14:22-0400 Body weight 73.94 kg Ashwin Packer MD Work Phone: [facility] 08-27-2024 14:22-0400 Diastolic blood pressure 64 mm[Hg] Ashwin Packer MD Work Phone: [facility] 08-27-2024 14:22-0400 Systolic blood pressure 104 mm[Hg] Ashwin Packer MD Work Phone: [facility] 08-13-2024 11:48-0500 Body mass index (BMI) [Ratio] 25.95 kg/m2 Elena CHRISTENSEN Work Phone: [facility] 08-13-2024 11:48-0500 Body weight 72.94 kg Elena CHRISTENSEN Work Phone: [facility] 08-13-2024 11:48-0500 Diastolic blood pressure 68 mm[Hg] Elena CHRISTENSEN Work Phone: [facility] 08-13-2024 11:48-0500 Systolic blood pressure 112 mm[Hg] Elena CHRISTENSEN Work Phone: [facility] 07-20-2024 11:13-0500 Body mass index (BMI) [Ratio] 25.73 kg/m2 Cuong Diana DO Work Phone: [facility] 07-20-2024 11:13-0500 Body weight 72.3 kg Cuong Diana DO Work Phone: [facility] 07-20-2024 11:13-0500 Diastolic blood pressure 60 mm[Hg] Cuong Diana DO Work Phone: [facility] 07-20-2024 11:13-0500 Systolic blood pressure 100 mm[Hg] Cuong Diana DO Work Phone: [facility] 06-18-2024 10:37-0500 Body mass index (BMI) [Ratio] 25.02 kg/m2 [facility] 06-18-2024 10:37-0500 Body weight 70.31 kg [facility] Nurse [facility] 06-18-2024 10:37-0500 Diastolic blood pressure 72 mm[Hg] [facility] Nurse [facility] 06-18-2024 10:37-0500 Systolic blood pressure 118 mm[Hg] [facility] Nurse [facility] 07-18-2023 10:30-0500 Body mass index (BMI) [Ratio] 26.7 kg/m2 Cuong Diana DO Work Phone: [facility] 07-18-2023 10:30-0500 Body weight 75.03 kg Cuong Diana DO Work Phone: [facility] 07-18-2023 10:30-0500 Diastolic blood pressure 68 mm[Hg] Cuong Diana DO Work Phone: [facility] 07-18-2023 10:30-0500 Systolic blood pressure 106 mm[Hg] Cuong Diana DO Work Phone: [facility] 02-11-2023 14:13-0400 Body height 165.1 cm SADAF Wyatt Work Phone: [facility] 02-11-2023 14:13-040 Body temperature 97.9 [degF] SADAF Wyatt Work Phone: [facility] 02-11-2023 14:13-040 Body weight 70.55 kg SADAF Wyatt Work Phone: [facility] 02-11-2023 14:13-0400 Diastolic blood pressure 80 mm[Hg] PA-Ventura Wyatt Work Phone: [facility] 02-11-2023 14:13-0400 Heart rate 60 /min PA-Ventura Wyatt Work Phone: [facility] 02-11-2023 14:13-0400 Respiratory rate 15 /min PA-Ventura Wyatt Work Phone: [facility] 02-11-2023 14:13-0400 SaO2% (BldA) [Mass fraction] 99 % PA-C Andie Wyatt Work Phone: [facility] 02-11-2023 14:13-0400 Systolic blood pressure 134 mm[Hg] PA-Ventura Wyatt Work Phone: [facility] 02-08-2023 12:36-0400 Body height 165.1 cm PA-Ventura Wyatt Work Phone: [facility] 02-08-2023 12:36-0400 Body temperature 98.2 [degF] FERMIN-Ventura Wyatt Work Phone: [facility] 02-08-2023 12:36-0400 Body weight 72.57 kg SADAF Wyatt Work Phone: [facility] 02-08-2023 12:36-0400 Diastolic blood pressure 84 mm[Hg] PA-Ventura Wyatt Work Phone: [facility] 02-08-2023 12:36-0400 Heart rate 74 /min SADAF Wyatt Work Phone: [facility] 02-08-2023 12:36-0400 Respiratory rate 15 /min PA-Ventura Wyatt Work Phone: [facility] 02-08-2023 12:36-0400 SaO2% (BldA) [Mass fraction] 98 % SADAF Wyatt Work Phone: [facility] 02-08-2023 12:36-0400 Systolic blood pressure 150 mm[Hg] PA-C Andie Wyatt Work Phone: [facility] 12-19-2022 14:43-0400 Body temperature 96.9 [degF] FERMIN-C Andie Wyatt Work Phone: [facility] 12-19-2022 14:43-0400 Diastolic blood pressure 74 mm[Hg] PA-C Andie Wyatt Work Phone: [facility] 12-19-2022 14:43-0400 Heart rate 59 /min PA-C Andie Wyatt Work Phone: [facility] 12-19-2022 14:43-0400 Respiratory rate 18 /min PA-C Andie Wyatt Work Phone: [facility] 12-19-2022 14:43-0400 SaO2% (BldA) [Mass fraction] 100 % PA-C Andie Wyatt Work Phone: [facility] 12-19-2022 14:43-0400 Systolic blood pressure 115 mm[Hg] PA-C Andie Wyatt Work Phone: [facility] 12-19-2022 14:00-0400 Diastolic blood pressure 89 mm[Hg] PA-Ventura Wyatt Work Phone: [facility] 12-19-2022 14:00-0400 Heart rate 79 /min SADAF Wyatt Work Phone: [facility] 12-19-2022 14:00-0400 Respiratory rate 16 /min PA-C Andie Wyatt Work Phone: [facility] 12-19-2022 14:00-0400 SaO2% (BldA) [Mass fraction] 99 % FERMIN-C Andie Wyatt Work Phone: [facility] 12-19-2022 14:00-0400 Systolic blood pressure 150 mm[Hg] PA-Ventura Wyatt Work Phone: [facility] 12-19-2022 03:30-0400 Body height 165.1 cm PA-C Andie Wyatt Work Phone: [facility] 12-19-2022 03:30-0400 Body weight 72.2 kg PA-C Andie Wyatt Work Phone: [facility] 12-18-2022 23:07-0400 Body height 165.1 cm PA-C Andie Wyatt Work Phone: [facility] 12-18-2022 23:07-0400 Body weight 74.2 kg PA-C Andie Wyatt Work Phone: [facility] 12-18-2022 23:05-0400 Body temperature 98.5 [degF] FERMIN-C Andie Wyatt Work Phone: [facility] 08-20-2022 14:31-0500 Body height 165.1 cm PA-Ventura Wyatt Work Phone: [facility] 08-20-2022 14:31-0500 Body temperature 98.9 [degF] PA-C Andie Wyatt Work Phone: [facility] 08-20-2022 14:31-0500 Body weight 71.55 kg PA-Ventura Wyatt Work Phone: [facility] 08-20-2022 14:31-0500 Diastolic blood pressure 87 mm[Hg] PA-Ventura Wyatt Work Phone: [facility] 08-20-2022 14:31-0500 Heart rate 97 /min PA-C Andie Wyatt Work Phone: [facility] 08-20-2022 14:31-0500 Respiratory rate 18 /min FERMIN-C Andie Wyatt Work Phone: [facility] 08-20-2022 14:31-0500 SaO2% (BldA) [Mass fraction] 98 % PA-C Andie Wyatt Work Phone: [facility] 08-20-2022 14:31-0500 Systolic blood pressure 135 mm[Hg] PA-C Andie Wyatt Work Phone: [facility] 02-08-2022 03:06-0400 Body weight 68.[address] CUONG ORTIZ . [facility] [facility] Comment on above: Performed By: #### AFPMAT #### [facility] [address] [address] [address] Juan Antonio Ibarra 02-05-2022 18:24-0400 Body height 165.1 cm PAZhao Wyatt Work Phone: [facility] 02-05-2022 18:24-0400 Body temperature 98.3 [degF] SADAF Wyatt Work Phone: [facility] 02-05-2022 18:24-0400 Body weight 67.9 kg SADAF Wyatt Work Phone: [facility] 02-05-2022 18:24-0400 Diastolic blood pressure 68 mm[Hg] SADAF Wyatt Work Phone: [facility] 02-05-2022 18:24-0400 Heart rate 92 /min SADAF Wyatt Work Phone: [facility] 02-05-2022 18:24-0400 Respiratory rate 18 /min SADAF Wyatt Work Phone: [facility] 02-05-2022 18:24-0400 SaO2% (BldA) [Mass fraction] 99 % SADAF Wyatt Work Phone: [facility] 02-05-2022 18:24-0400 Systolic blood pressure 125 mm[Hg] SADAF Wyatt Work Phone: [facility] Encounters Encounter Date Encounter Type Care Provider Facility Start: 12-17-2024 End: 12-17-2024 Clinisync Result Encounter Cuong Ortiz DO Work Phone: [facility] Unsolicited Start: 12-17-2024 End: 12-17-2024 Clinisync Result Encounter Cuong Ortiz DO Work Phone: [facility] External [facility] Unsolicited Start: 12-16-2024 End: 12-16-2024 Clinisync Result Encounter Cuong Diana DO Work Phone: [facility] External [facility] Unsolicited Start: 12-16-2024 End: 12-16-2024 Clinisync Result Encounter Cuong Diana DO Work [...] Comment on above: Third trimester preg junaid (HHS-HCC); 37 weeks gestation of (HHS-HCC); Nadia cisterna magna (HCC) Start: 12-08-2024 End: [...] Comment on above: Third trimester preg junaid ([facility]); 36 weeks gestation of ([facility]) Start: 12-01-2024 End: 12-01-2024 Clinisync Result Encounter [...] Comment on above: Third trimester preg junaid ([facility]); 35 weeks gestation of (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); Nadia cisterna magna ([facility]) - Start: 11-16-2024 End: 11-16-2024 ambulatory CUONG R DIANA [facility] Start: 11-10-2024 End: 11-10-2024 Bamboo flowsheet Cuong [...] 15 minutes Cuong Diana DO Work Phone: [facility] Comment on above: Third trimester preg junaid; 28 weeks gestation of ; Nadia cisterna magna (CMS/HCC) Start: 10-12-2024 End: 10-12-2024 ambulatory CUONG DIANA Not Available Start: 09-28-2024 End: 09-28-2024 Office outpatient visit 25 minutes Malachi Macdonald MD Work Phone: [facility]- Medicine at [facility] Comment on above: Nadia cisterna magna (CMS-HCC) - (Primary Dx); Nodular heterotopia (CMS-HCC) - ; 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 , 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 Start: 09-28-2024 End: 09-28-2024 ambulatory [facility] Start: 09-10-2024 End: 09-10-2024 Bamboo flowsheet Cuong Diana DO Work Phone: [facility] Start: 09-10-2024 End: 09-14-2024 Bamboo flowsheet Cuong Diana DO Work Phone: [facility] Start: 09-10-2024 End: 09-14-2024 Clinisync Result Encounter Cuong Diana DO Work Phone: [facility] External Department Unsolicited Start: 09-10-2024 End: 09-11-2024 External Result Encounter Cuong Diana DO Work Phone: [facility] External Department Unsolicited Start: 09-10-2024 End: 09-10-2024 Office outpatient visit 15 minutes Cuong Diana DO Work Phone: [facility] Comment on above: Well woman exam with routine gynecological exam; STD exposure; Vaginal discharge; Second trimester ; 24 weeks gestation of Start: 09-10-2024 End: 09-10-2024 Patient encounter procedure Cuong Diana DO Work Phone: [facility] Healthcare Start: 09-10-2024 End: 09-10-2024 ambulatory CUONG DIANA Not Available Start: 08-27-2024 End: 08-27-2024 Office consultation new/estab patient 60 min Ashwin Packer MD Work Phone: [facility] [place] Comment on above: Suspected anom kaitlynn, antepartum, single or unspecified fetus (Primary Dx); 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 , 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; Family history of genetic disorder; Fetus with trisomy 13, single gestation; CM (congenital malformation) Start: 08-27-2024 End: 08-27-2024 Chart abstracting Scanning Provider External [facility]- Medicine at [facility] Start: 08-27-2024 End: 08-27-2024 ambulatory [facility] Start: 08-13-2024 End: 08-13-2024 Office outpatient visit 15 minutes Elena CHRISTENSEN Work Phone: [facility] Comment on above: Second trimester pre gnancy; 20 weeks gestation of Start: 08-13-2024 End: 08-13-2024 ambulatory ELENA FOFANA Not Available Start: 07-20-2024 End: 07-20-2024 Bamboo flowsheet Cuong Diana DO Work Phone: [facility] Start: 07-20-2024 End: 07-22-2024 Bamboo flowsheet Cuong Diana DO Work Phone: [facility] Start: 07-20-2024 End: 07-22-2024 Clinisync Result Encounter Cuong Diana DO Work Phone: [facility] External Department Unsolicited Start: 07-20-2024 End: 07-20-2024 ambulatory CUONG DIANA Not Available Start: 07-20-2024 End: 07-20-2024 Office outpatient visit 15 minutes Cuong Diana DO Work Phone: [facility] Comment on above: 16 weeks gestation o f ; Second trimester ; Screening, , for anatomic survey Start: 06-22-2024 End: 06-22-2024 Clinisync Result Encounter Cuong Diana DO Work Phone: [facility] External [facility] Unsolicited Start: 06-22-2024 End: 06-22-2024 Clinisync Result Encounter Cuong Diana DO Work Phone: [facility] External Department Unsolicited Start: 06-22-2024 End: 06-22-2024 ambulatory Andie Wyatt PA-C Work Phone: [facility] Work Phone: Start: 06-22-2024 End: 06-22-2024 Departed Referred Andie Wyatt PA-C Work Phone: [facility] Start: 06-18-2024 End: 06-18-2024 ambulatory [facility] Diana Nurse [facility] Comment on above: GA: 12w2d Start: 12-26-2023 End: 12-26-2023 ambulatory AMAURI Sanders [facility] Start: 12-24-2023 End: 12-24-2023 ambulatory CUONG DIANA Not Available Start: 07-22-2023 Documentation procedure Lucio BANKS Work Phone: [facility]- Medicine at [facility] Comment on above: Outgoing Ca ll Start: [...] Rosaura BANKS Work Phone: [facility]- Medicine at [facility] Comment on above: Family history of ge netic disorder (Primary Dx); Genetic testing; Fetus with trisomy 13, single gestation Start: 06-25-2023 Chart abstracting Scanning Pro vider External Maternal- Medicine at [facility] Start: 02-11-2023 End: 02-11-2023 Emergency department patient visit SADAF Wyatt Work Phone: [facility] Work Phone: Start: 02-08-2023 End: 02-08-2023 Emergency department patient visit SADAF Wyatt Work Phone: [facility] Work Phone: Start: 12-19-2022 End: 12-19-2022 Evaluation and management of inpatient SADAF Wyatt Work Phone: [facility] [place] [facility] Work Phone: Start: 12-19-2022 End: 12-19-2022 observation encounter SADAF Wyatt Work Phone: [facility] Work Phone: Start: 10-24-2022 End: 10-24-[address] CUONG ORTIZ . Facility:[facility] Start: 10-23-2022 Registered Recurring SADAF Wyatt Work Phone: [facility] Start: 08-20-2022 End: 08-20-2022 Emergency department patient visit SADAF Wyatt Work Phone: [facility] Work Phone: Start: 07-23-[address] CUONG ORTIZ . Facili ty:[facility]1 Start: 07-09-2022 End: 07-09-[address] CUONG ORTIZ . Facility:[facility] Start: 07-05-2022 End: 07-07-2022 Evaluation and management of inpatient DR CUONG ORTIZ . Facility:[facility] Start: 07-02-2022 End: 07-02-2022 ambulatory [facility] Facility:[facility] Start: 06-28-2022 End: 06-28-[address] CUONG ORTIZ . Facility:[facility] Start: 06-21-2022 End: 06-21-2022 [facility] Facility:[facility]1 Start: 06-16-2022 End: 06-16-2022 ambulatory [...] ORTIZ . Facility:[facility] Start: 05-24-2022 End: 05-24-2022 [facility] Facility:[facility]1 Start: 04-04-2022 End: 04-05-2022 ambulatory [...] SADAF Wyatt Work Phone: [facility] Start: 12-26-2021 End: 12-27-[address] CUONG ORTIZ . Facility:[facility] Start: 12-07-2021 End: 12-08-[address] CUONG ORTIZ . Facility:[facility] Start: 12-27-2017 End: 12-27-2017 Patient encounter Christian Ivan Facility:[facility] Start: 12-12-2017 End: 12-12-2017 Emergency department patient visit Luke Barbosa Facility:[facility] Start: 12-12-2017 Patient encounter Facil [id number] Start: 12-07-2017 Evaluation and manag ement of inpatient CLARA JAMA Facility:[facility] Start: 12-03-2017 Evaluation and manag ement of inpatient CLARA JAMA Facility:[facility] Start: 12-03-2017 Patient encounter procedure CLARA JAMA Facility:[facility] Start: 12-02-2017 Evaluation and manag ement of inpatient CLARA JAMA Facility:[facility] Start: 11-30-2017 End: 12-02-2017 Evaluation and management of inpatient CLARA JAMA [facility] Start: 11-30-2017 End: 11-30-2017 Patient encounter Eloisa Nguyen Facility:[facility] Start: 11-30-2017 Patient encounter Facil [id number] Start: 11-28-2017 End: 11-28-2017 Patient encounter CLARA JAMA [facility] Start: 11-21-2017 End: 11-21-2017 Patient encounter OKSANA AMADO [facility] Start: 11-21-2017 End: 11-21-2017 Patient encounter Juanita Cole Facility:[facility] Start: 11-20-2017 Patient encounter Facil [id number] Start: 11-17-2017 End: 11-17-2017 Patient encounter Christian Ivan Facility:[facility] Start: 11-16-2017 Patient encounter Facil [id number] Start: 11-07-2017 End: 11-07-2017 Patient encounter OKSANA MASON [facility] Start: 10-31-2017 End: 10-31-2017 Patient encounter CLARA JAMA [facility] Start: 10-24-2017 End: 10-24-2017 Patient encounter MARCO ANTONIO ANTONIO [facility] Start: 10-16-2017 End: 10-16-2017 Patient encounter Christian Ivan Facility:[facility] Start: 10-08-2017 End: 10-08-2017 Patient encounter ALIREZA PATEL [facility] Start: 10-08-2017 End: 10-08-2017 Patient encounter OKSANA CELINA MASON [facility] Start: 10-01-2017 End: 10-02-2017 Patient encounter Christian A Shekhar Facility:[facility] Start: 09-10-2017 End: 09-11-2017 Patient encounter LUIS DANIEL TRAMMELL [facility] Start: 09-10-2017 End: 09-10-2017 Patient encounter KRIS Yola HOYT [facility] Start: 09-10-2017 End: 09-10-2017 Patient encounter CLARA EVITA [facility] Start: 09-03-2017 End: 09-04-2017 Patient encounter Christian A Shekhar Facility:[facility] Start: 08-28-2017 Ambulatory NAGA ACOSTA [facility] Start: 08-13-2017 End: 08-14-2017 Patient encounter CLARA JAMA [facility] Start: 08-13-2017 End: 08-13-2017 Patient encounter MEREDITH JIGNA [facility] Start: 08-13-2017 End: 08-13-2017 Patient encounter ALIREZA [facility] Start: 08-10-2017 End: 08-10-2017 Emergency department patient visit Luke Barbosa Facility:[facility] Start: 08-06-2017 End: 08-07-2017 Patient encounter Christian A Ragley Facility:[facility] Start: 07-23-2017 End: 07-24-2017 Patient encounter Christian A Ragley Facility:[facility] Start: 07-18-2017 End: 07-18-2017 Patient encounter CLARA DERASE [facility] Start: 07-09-2017 End: 07-10-2017 Patient encounter Christian A Shekhar Facility:[facility] Start: 06-25-2017 End: 06-26-2017 Patient encounter Christian A Shekhar Facility:[facility] Start: 06-12-2017 End: 06-12-2017 Patient encounter Christian A Ragley Facility:[facility] Start: 05-14-2017 End: 05-15-2017 Patient encounter Christian A Ragley Facility:[facility] Start: 05-01-2017 End: 05-02-2017 Patient encounter Eloisa Netta Patrick Facility:[facility] Start: 04-23-2017 End: 04-23-2017 Patient encounter Yasmin Miky Evans Facility:[facility] Start: 04-22-2017 End: 04-22-2017 Emergency department patient visit Luke Barbosa Facility:[facility] Start: 04-18-2017 End: 04-18-2017 Emergency department patient visit Luke Barbosa Facility:[facility] Start: 04-16-2017 End: 04-17-2017 Patient encounter Gamaliel Tommy Carvajaley Facility:[facility] Start: 04-16-2017 End: 04-17-2017 Patient encounter Christian Ivan Facility:[facility] Start: 04-11-2017 End: 04-11-2017 Emergency department patient visit Nodr No Doctor Assigned Facility:[facility] Start: 03-26-2017 End: 03-27-2017 Patient encounter Luke Barbosa Facility:[facility] Start: 03-20-2017 End: 03-20-2017 Emergency department patient visit Nodr No Doctor Assigned Facility:[facility] Start: 03-01-2017 End: 03-01-2017 Emergency department patient visit Nodr No Doctor Assigned Facility:[facility] Procedures Date Procedure Procedure Detail Performing Clinician Start: 12-17-2024 ALL CBC WITH AUTO DIFF Cuong Diana DO Work Phone: Start: 12-16-2024 [facility] CBC WITH PLATEL ET NO DIFFERENTIAL Cuong Diana DO Work Phone: Start: 12-15-2024 US OB BPP W NON-STRESS [...] dip stick/tabl et rgnt non-auto w/o micrscp Coung Diana DO Work Phone: Start: 11-17-2024 US [...] Work Phone: Start: 09-10-2024 RECURRENT VAGINITIS (HTRX) [employer] Work Phone: Start: 09-10-2024 IGP,APTIMA HPV,AGE GDLN CuongSnowman Work Phone: Start: 09-10-2024 Microscopic observat ion [Identifier] in Cervix by Cyto stain Cuong [employer] Work Phone: Start: 07-20-2024 AFP, SERUM, OPEN SPI NA BIFIDA CuongSnowman Work Phone: Start: 07-20-2024 Urnls dip stick/tabl et rgnt non-auto w/o micrscp [employer] Work Phone: Start: 06-22-2024 ALL CBC WITH AUTO DIFF [employer] Work Phone: Start: 06-18-2024 End: 06-18-2024 Urnls dip stick/tablet rgnt non-auto w/o micrscp [employer] DO Work Phone: Start: 07-18-2023 AFP, SERUM, OPEN SPI NA BIFIDA [employer]ongSnowman Work Phone: Start: 07-18-2023 Urnls dip stick/tabl [...] CT cervical spine wi thout contrast SADAF Andie Wyatt Work Phone: Start: 12-18-2022 CT of head without contrast SADAF Andie Wyatt Work Phone: Start: 12-18-2022 CT of lumbar spine w ithout contrast TARIQVentura Wyatt Work Phone: Start: 12-18-2022 Plain chest X-ray SADAF Andie Wyatt Work Phone: Start: 12-18-2022 X-ray of both knees TARIQ Sandoval Wyatt Work Phone: Start: 10-24-2022 Microscopic observat ion [Identifier] in Cervix by Cyto stain [facility] Nurse Start: 07-06-2022 Transfusion of Nonautologous Red [...] above: Performed By: #### T &S #### [address] [address] Aerobic microbial culture FERMIN Wyatt Work Phone: Investigation of transfusion reaction SADAF Wyatt Work Phone: Plan of Treatment Date Care Activity Detail Author Start: 12-18-2032 DTaP,Tdap and Td Vaccines (10 - Td or Tdap) DTaP,Tdap and Td Vaccines (10 - Td or Tdap) [facility] Start: 10-25-2027 Screening for malign ant neoplasm of cervix [facility] Start: 09-11-2027 Screening for malign ant neoplasm of cervix Pap Smear [facility] Start: 11-16-2025 Adult BMI Screening Adult BMI Screen ing [facility] Start: 10-24-2025 Screening for malign ant neoplasm of cervix Pap Smear [facility] Start: 09-28-2025 Tobacco Screening Tobacco Screening [facility] Start: 08-27-2025 Adult BMI Screening Adult BMI Screen ing [facility] Start: 08-27-2025 Tobacco Screening Tobacco Screening [facility] Start: 02-15-2025 Influenza vaccination P [facility] Start: 12-14-2024 End: 12-14-2024 Patient encounter procedure 12/14/2024 1:30 PM EDT Routine [facility] [address] [place] [id number] Cuong Ortiz, DO [address] [place] [address] [facility] Start: 12-07-2024 End: 12-07-2024 Patient encounter procedure 12/07/2024 1:00 PM EDT Routine [facility] [address] [place] [phone] Cuong Ortiz, DO [address] [place] [address] [facility] Start: 11-30-2024 End: 11-30-2025 CULTURE, GROUP B STREP WITH SUSCEPTIBLITY CULTURE, GROUP B STREP WITH SUSCEPTIBLITY Lab Routine Third trimester ([facility]) Expected: 11/30/2024, Expires: 11/30/2025 [facility] Work Phone: Comment on above: Expected: 11/30/2024 , Expires: 11/30/2025 Start: 11-30-2024 End: 11-30-2024 Patient encounter procedure [facility] Comment on above: Arrived Start: 11-23-2024 End: 11-23-2024 Patient encounter procedure 11/23/2024 2:20 PM EDT Routine [facility] [address] [place] [id number] Cuong Ortiz, DO [address] [place] [address] [facility] Start: 11-10-2024 End: 11-10-2024 [...] EDT Ancillary Procedure [facility] [address] [facility] [phone] [facility] Start: 10-12-2024 End: 02-11-2025 US for US OB follow up transabdominal approach Imaging Routine Nadia cisterna magna (CMS/HCC) Expected: 10/12/2024, Expires: 02/11/2025 [facility] Work Phone: Comment on above: Expected: 10/12/2024 , Expires: 02/11/2025 Start: 10-12-2024 End: 10-12-2024 Patient encounter procedure 10/12/2024 1:20 PM EDT Routine [facility] [address] [place] [phone] Cuogn Ortiz, DO [address] [place] [address] [facility] Start: 10-12-2024 End: 10-12-2024 Patient encounter procedure 10/12/2024 9:20 AM EDT Routine [facility] [address] [facility] [address] [phone] Cuong Ortiz, DO [address] [place] [address] Arrived [facility] Comment on above: Arrived Start: 09-24-2024 End: 09-24-2024 Patient encounter procedure 09/24/2024 9:45 AM EDT Appointment [facility] [address] [place] [address] [facility] Start: 09-10-2024 End: 09-10-2024 Patient encounter procedure 09/10/2024 11:10 AM EDT Routine [facility] [address] [facility] [place] [address] Cuong Ortiz, [address] [place] [address] [facility] Start: 08-27-2024 End: 08-27-2025 [...] 08/27/2024 1:00 PM EDT Appointment [facility] [place] [address] [place] [address] [facility] Start: 08-13-2024 End: 08-13-2024 Patient encounter procedure 08/13/2024 11:30 AM EST Routine [facility] [address] [facility] [place] [phone] Elena Fofana PA [address] [facility] [address] [place], [place] [id number] [facility] Start: 08-13-2024 End: 08-13-2024 Professional / ancillary services management 08/13/2024 10:30 AM EST Ancillary Procedure [facility] [address] [facility] [facility] [place] [address] [facility] Start: 07-20-2024 End: 08-17-2024 Alpha fetoprotein, maternal Alpha fetoprotein, maternal Lab Routine 16 weeks gestation of Second trimester Expected: 07/20/2024 (Approximate), Expires: 08/17/[address] [facility] Comment on above: Expected: 07/20/2024 (Approximate), Expires: 08/17/2024 Start: 07-20-2024 End: 07-20-2025 US for US OB 14+ weeks anatomy scan Imaging Routine Screening, , for anatomic survey Expected: 07/20/2024, Expires: 07/20/[address] [facility] Work Phone: Comment on above: Expected: 07/20/2024 , Expires: 07/20/2025 Start: 07-20-2024 End: 07-20-2024 Patient encounter procedure 07/20/2024 10:40 AM EST Routine [facility] [address] [facility] [facility] [address] Cuong Ortiz DO [address] [facility] [address] [place], [place] [id number] [facility] Start: 06-22-2024 Bacteria identified in Urine by Culture Urine Culture [facility] Start: 06-22-2024 Urine culture [facility] Start: 06-18-2024 End: 06-18-2025 ABO/Rh ABO/Rh Lab Routine Missed menses , unspecified gestational age Expected: 06/18/2024 (Approximate), Expires: 06/18/2025 [facility] Comment on above: Expected: [...] first trimester Expected: 06/18/2024 (Approximate), Expires: 06/18/2025 [facility] Comment on above: Expected: 06/18/2024 (Approximate), Expires: 06/18/2025 Start: 02-16-2024 COVID-19 Vaccine ( season) COVID-19 Vaccine ( season) [facility] Start: 02-16-2024 Influenza vaccination N [facility] Start: 09-11-2023 Adult BMI Screening Adult BMI Screen ing [facility] Start: 09-11-2023 Tobacco Screening Tobacco Screening [facility] Start: 08-15-2023 End: 08-15-2023 Patient encounter procedure 08/15/2023 2:15 PM EST Appointment [facility] [place] [address] [facility] [address] [place] [address] [facility] Start: 08-15-2023 End: 08-15-2023 Patient encounter procedure 08/15/2023 9:10 AM EST Routine [facility] [address] [place] [address] [place] [phone] Cuong Ortiz, DO [address] [facility] [place] [address] [facility] Start: 07-18-2023 End: 07-18-2023 Patient encounter procedure 07/18/2023 8:00 AM EST Appointment [facility] [place] [address] [place] [address] [facility] Start: 07-03-2023 End: 07-03-2023 Telemedicine consultation with patient 07/03/2023 11:00 AM EST Telemedicine Maternal- Medicine at [facility] [address] [place] [phone] [facility] [address] [place] [address] [facility]- Medicine at [facility] Start: 05-02-2023 Depression Screening Depression [facility] Start: 02-15-2023 COVID-19 Vaccine ( season) COVID-19 Vaccine ( season) [facility] Start: 02-15-2023 Influenza vaccination [facility] Start: 12-19-2022 Bacteria identified in Urine by Culture Urine Culture [facility] Start: 12-19-2022 [facility] Start: 12-19-2022 CT of head without contrast CT head/brain wo con [facility] Start: 12-19-2022 CT Unspecified body region WO contrast [facility] Start: 12-19-2022 Consultation [facility] Start: 12-19-2022 Hospital admission [facility] Start: 12-19-2022 X-ray of left foot XR foot LT 2V [facility] Start: 12-19-2022 XR Foot - left 2 Views [facility] Start: 12-18-2022 Computed tomography of thoracic spine without contrast CT thoracic spine wo con [facility] Start: 12-18-2022 CT cervical spine without contrast CT cervical spine wo con [facility] Start: 12-18-2022 CT Cervical spine WO contrast [facility] Start: 12-18-2022 CT Lumbar spine WO contrast [facility] Start: 12-18-2022 CT of head without contrast CT head/brain wo con [facility] Start: 12-18-2022 CT of lumbar spine without contrast CT lumbar spine wo [facility] Start: 12-18-2022 CT Thoracic spine WO contrast [facility] Start: 12-18-2022 CT Unspecified body region WO contrast [facility] Start: 12-18-2022 Pelvis X-ray XR pelvis 1-2V [facility] Start: 12-18-2022 Plain chest X-ray XR chest 1V [place] [facility] Start: 12-18-2022 X-ray of both knees XR knee BI 2V [facility] Start: 12-18-2022 XR Chest Single view [facility] Start: 12-18-2022 XR Knee - bilateral 2 Views [facility] Start: 12-18-2022 XR Pelvis 1 or 2 Views [facility] Start: 2022 Screening for malign ant neoplasm of cervix [facility] Start: 02-05-2022 [facility] Work Phone: Start: 2013 Screening for malign ant neoplasm of cervix Pap Smear [facility] Start: 2011 DTaP,Tdap and Td Vaccines (1 - Tdap) DTaP,Tdap and Td Vaccines (1 - Tdap) [facility] Start: 2010 Adult BMI Follow Up Plan Adult BMI Follow Up Plan [facility] Anaerobic microbial culture Anaerobic Culture [facility] Bacteria identified in Urine by Culture [facility] Bacteria identified in Urine by Culture Urine culture Microbiology Routine Missed menses Ordered: 06/18/2024 [facility] Comment on above: Ordered: 06/18/2024 CBC W Auto Different ial panel - Blood CBC and differential Lab Routine Missed menses , unspecified gestational age Ordered: 06/18/[address] [facility] Comment on above: Ordered: 06/18/2024 CHLAMYDIA TRACHOMATI S (GENITO/STI) CHLAMYDIA TRACHOMATIS (GENITO/STI) Lab Routine STD exposure Vaginal discharge Ordered: 09/10/2024 [facility] Comment on above: Ordered: 09/10/2024 Cytology Cervical or vaginal smear or scraping study Pap Smear Pathology and Cytology Routine Well woman exam with routine gynecological exam Ordered: 09/10/2024 [facility] Work Phone: Comment on above: Ordered: 09/10/2024 Hemoglobin A1c/Hemoglobin.total in Blood Hemoglobin A1c Lab Routine Missed menses , unspecified gestational age Ordered: 06/18/2024 [facility] Comment on above: Ordered: 06/18/2024 Hepatitis B virus surface Ag [Presence] in Serum or Plasma by Immunoassay Hepatitis B surface antigen Lab Routine Missed menses , unspecified gestational age Ordered: 06/18/2024 [facility] Comment on above: Ordered: 06/18/2024 Hepatitis C virus Ab [Presence] in Serum or Plasma by Immunoassay Hepatitis C antibody Lab Routine Missed menses , unspecified gestational age Ordered: 06/18/2024 [facility] Comment on above: Ordered: 06/18/2024 HIV-1/HIV-2 antigen/antibody combination immunoassay HIV-1 and HIV-2 antibodies Lab Routine Missed menses , unspecified gestational age Ordered: 06/18/2024 [facility] Comment on above: Ordered: 06/18/2024 Human papilloma viru s DNA [Presence] in Unspecified specimen by Probe with amplification HPV DNA probe, amplified Microbiology Routine Well woman exam with routine gynecological exam Ordered: 09/10/2024 [facility] Comment on above: Ordered: 09/10/2024 Neisseria gonorrhoea e DNA [Presence] in Unspecified specimen by RAINER with probe detection Neisseria gonorrhea DNA probe, direct Lab Routine STD exposure Vaginal discharge Ordered: 09/10/2024 [facility] Comment on above: Ordered: 09/10/2024 Patient [facility] Work Phone: Patient referral [facility] Work Phone: Reagin Ab [Presence] in Serum by RPR RPR Lab Routine Missed menses , unspecified gestational age Ordered: 06/18/2024 [facility] Comment on above: Ordered: 06/18/2024 Rubella antibody, IgG Rubella an tibody, IgG Lab Routine Missed menses , unspecified gestational age Ordered: 06/18/2024 [facility] Comment on above: Ordered: 06/18/2024 SURESWAB(R) ADVANCED VAGINITIS PLUS, TMA SURESWAB(R) ADVANCED VAGINITIS PLUS, TMA Pathology and Cytology Routine STD exposure Vaginal discharge Ordered: 09/10/2024 [facility] Comment on above: Ordered: 09/10/2024 Immunizations Immunization Date Immunization Notes Care Provider Fa hector 12-18-2022 tetanus toxoid, redu swati diphtheria toxoid, and acellular pertussis vaccine, adsorbed SADAF Wyatt Work Phone: [facility] 07-07-2022 diphtheria, tetanus toxoids and pertussis vaccine Ashwin Packer MD Work Phone: [facility] 11-07-2017 tetanus toxoid, redu swati diphtheria toxoid, and acellular pertussis vaccine, adsorbed Ashwin Packer MD Work Phone: [facility] 10-24-2017 tetanus toxoid, redu swati diphtheria toxoid, and acellular pertussis vaccine, adsorbed Ashwin Packer MD Work Phone: [facility] 05-19-2013 influenza, injectabl e, quadrivalent, preservative free Ashwin Packer MD Work Phone: [facility] 05-19-2013 influenza virus vacc ine, unspecified formulation Rosaura Renee [facility] Work Phone: [facility] 04-29-2012 influenza virus vacc ine, whole virus Ashwin Packer MD Work Phone: [facility] 10-18-2010 human papilloma viru s vaccine, quadrivalent Ashwin Packer MD Work Phone: [facility] 07-26-2010 human papilloma viru s vaccine, quadrivalent Ashwin Packer MD Work Phone: [facility] 12-24-2008 human papilloma viru s vaccine, quadrivalent Ashwin Packer MD Work Phone: [facility] 12-24-2008 meningococcal polysaccharide (groups A, C, Y and W-135) diphtheria toxoid conjugate vaccine (MCV4P) Ashwin Packer MD Work Phone: [facility] 12-09-1997 haemophilus influenz ae type b vaccine, PRP-T conjugate Ashwin Packer MD Work Phone: [facility] 12-09-1997 hepatitis B vaccine, pediatric or pediatric/adolescent dosage Ashwin Packer MD Work Phone: [facility] 10-08-1997 diphtheria, tetanus toxoids and acellular pertussis vaccine, unspecified formulation Ashwin Packer MD Work Phone: [facility] 10-08-1997 haemophilus influenz ae type b vaccine, PRP-T conjugate Ashwin Packer MD Work Phone: [facility] 10-08-1997 hepatitis B vaccine, pediatric or pediatric/adolescent dosage Ashwin Packer MD Work Phone: [facility] 10-08-1997 measles, mumps and rubella virus vaccine Ashwin Packer MD Work Phone: [facility] 10-08-1997 trivalent poliovirus vaccine, live, oral Ashwin Packer MD Work Phone: [facility] 09-18-1997 DTaP-Haemophilus influenzae type b conjugate vaccine Ashwin Packer MD Work Phone: [facility] 09-18-1997 poliovirus vaccine, unspecified formulation Ashwin Packer MD Work Phone: [facility] 03-10-1997 haemophilus influenz ae type b vaccine, PRP-T conjugate Ashwin Packer MD Work Phone: [facility] 03-10-1997 hepatitis B vaccine, pediatric or pediatric/adolescent dosage Ashwin Packer MD Work Phone: [facility] 08-23-1993 DTaP-Haemophilus influenzae type b conjugate vaccine Ashwin Packer MD Work Phone: [facility] 08-23-1993 measles, mumps and rubella virus vaccine Ashwin Packer MD Work Phone: [facility] 08-23-1993 trivalent poliovirus vaccine, live, oral Ashwin Packer MD Work Phone: [facility] 01-16-1993 haemophilus influenz ae type b vaccine, conjugate unspecified formulation Ashwin Packer MD Work Phone: [facility] 1992 DTaP-Haemophilus influenzae type b conjugate vaccine Ashwin Packer MD Work Phone: [facility] 1992 DTaP-Haemophilus influenzae type b conjugate vaccine Ashwin Packer MD Work Phone: [facility] 1992 poliovirus vaccine, unspecified formulation Ashwin Packer MD Work Phone: [facility] 1992 diphtheria, tetanus toxoids and pertussis vaccine Ashwin Packer MD Work Phone: [facility] 1992 haemophilus influenz ae type b vaccine, conjugate unspecified formulation Ashwin Packer MD Work Phone: [facility] 1992 trivalent poliovirus vaccine, live, oral Ashwin Packer MD Work Phone: [facility] 1992 DTaP-Haemophilus influenzae type b conjugate vaccine Ashwin Packer MD Work Phone: [facility] 1992 trivalent poliovirus vaccine, live, oral Ashwin Packer MD Work Phone: [facility] Payers Date Payer Category Payer Self-pay 2017 Medicaid 2017 Unknown 1992 Unknown [id number] 2..840.1.396763.3.579.2.278 1992 Unknown [id number] 2..840.1.063707.3.579.2.278 1992 Unknown [id number] 2.16.840.1.014273.3.579.2.278 1992 Unknown [id number] 2..840.1.817844.3.579.2.278 1992 Unknown [id number] 2.16.840.1.908507.3.579.2.593 1992 Unknown [id number] 2.16.840.1.190424.3.579.2.593 1992 Unknown [id number] 2.16.840.1.177555.3.579.2.593 1992 Unknown [id number] 2.16.840.1.318527.3.579.2.593 1992 Unknown [id number] 2.16.840.1.297997.3.579.2.593 1992 Unknown [id number] 2.16.840.1.046272.3.579.2.59 1992 Unknown [id number] 2.16.840.1.224719.3.579.2.593 1992 Unknown [id number] 2.16.840.1.469647.3.579.2.59 1992 Unknown [id number] 2.16.840.1.451749.3.579.2.593 1992 Unknown [id number] 2.16.840.1.880894.3.579.2.59 1992 Unknown [id number] 2.16.840.1.832671.3.579.2.593 1992 Unknown [id number] 2.16.840.1.705289.3.579.2.593 1992 Unknown [id number] 2.16.840.1.857807.3.579.2.593 1992 Unknown [id number] 2.16.840.1.381726.3.579.2.593 1992 Unknown [id number] 2.16.840.1.316669.3.579.2.593 1992 Unknown [id number] 2.16.840.1.486063.3.579.2.593 1992 Unknown [id number] 2.16.840.1.086185.3.579.2.593 1992 Unknown [id number] 2.16.840.1.161894.3.579.2.593 1992 Unknown [id number] 2.16.840.1.408290.3.579.2.593 1992 Unknown [id number] 2.16.840.1.516621.3.579.2.593 1992 Unknown [id number] 2.16.840.1.105572.3.579.2.593 1992 Unknown [id number] 2.16.840.1.868688.3.579.2.593 1992 Unknown [id number] 2.16.840.1.379955.3.579.2.128 1992 Unknown [id number] 2.16.840.1.804922.3.579.2.1286 1992 Unknown [id number] 2.16.840.1.941123.3.579.2.128 1992 Unknown [id number] 2.16.840.1.527461.3.579.2.1286 1992 Unknown [id number] 2.16.840.1.383636.3.579.2.128 1992 Unknown [id number] 2.16.840.1.044762.3.579.2.128 1992 Unknown [id number] 2.16.840.1.779505.3.579.2.128 1992 Unknown [id number] 2.16.840.1.792614.3.579.2.1259 1992 Unknown [id number] 2.16.840.1.390372.3.579.2.1259 1992 Unknown [id number] 2.16.840.1.581288.3.579.2.1258 1992 Unknown [id number] 2.16.840.1.563439.3.579.2.1258 1992 Unknown [id number] 2.16.840.1.024403.3.579.2.1258 1992 Unknown [id number] 2.16.840.1.990160.3.579.2.1258 1992 Unknown [id number] 2.16.840.1.408846.3.579.2.1258 1992 Unknown [id number] 2.16.840.1.287986.3.579.2.1258 1992 Unknown [id number] 2.16.840.1.084113.3.579.2.1258 1992 Unknown [id number] 2.16.840.1.716388.3.579.2.1258 1992 Unknown [id number] 2.16.840.1.626408.3.579.2.1258 1992 Unknown [id number] 2.16.840.1.395311.3.579.2.1258 1992 Unknown [id number] 2.16.840.1.673780.3.579.2.1258 1992 Unknown [id number] 2.16.840.1.880017.3.579.2.1258 1992 Unknown [id number] 2.16.840.1.489593.3.579.2.9 1957 Medicaid [id number] 1957 Medicaid [id number] Medicaid [id number] Unknown Regular Auto/Liability [id number] Unknown [id number] 2.16.840.1.963950.3.579.2.531 Social History Date Type Detail Facility Start: 02-05-2022 End: 05-09-2023 Tobacco smoking status NHIS Never smoked tobacco (finding) [facility] Start: 1990 Sex Assigned At Female F [facility] Start: 12-19-2022 End: 12-19-2022 Tobacco smoking status NHIS Current some day smoker [facility] Start: 03-28-2022 End: 02-11-2023 Tobacco smoking status NHIS Ex-smoker (finding) [facility] Start: 07-18-2023 End: 11-23-2024 Alcohol intake Lifetime non-drinker (finding) [facility] Start: 05-09-2023 End: 12-10-2024 History of Social function [facility] Start: 05-09-2023 End: 12-10-2024 Tobacco use panel [facility] Start: 03-11-2023 [facility] Start: 1990 Sex Assigned At Not on file P [facility] Start: 01-20-2015 End: 06-24-2024 Sex Female (finding) [facility] History of tobacco use Current smoker [facility] History of tobacco use Tobacco U se Types Packs/Day Years Used Date Smoking Tobacco: Former Vaping/E-cigarettes Smokeless Tobacco: Never [facility] Start: 03-28-2022 End: 08-27-2024 Tobacco use and exposure Smokeless tobacco non-user [facility] Start: 06-26-2023 End: 11-16-2024 Alcohol intake Current non-drinker of alcohol (finding) [facility] Frequency of Alcohol Consumption Never [facility] Goals Date Patient Goal Desired Activity /State Personal health goal Functional Status Date Assessment Result Facility 12-19-2022 Functional status Patient at Baseline [facility] Work Phone: Mental Status Date Assessment Result Facility 12-19-2022 Cognitive function Cognitive Sta tus Patient at Baseline [facility] Work Phone: Clinical Notes 11-13-2021 to 12-14-2024 Adela De Souza LPN - 12/14/2024 10:00 AM Sher Murphy, CREPE MACHINE OPERATOR - 12/07/2024 1:00 PM SAEDiegotunde Néstorrasta, CREPE MACHINE OPERATOR - 11/30/2024 1:10 PM EDGasper Sharad BECK - 11/23/2024 2:20 PM EDT Note Date [...] of trisomy 13 09/30/2023 Third trimester ([facility]) 11/23/2024 34 weeks gestation of ([facility]) 11/23/2024 Resolved Ambulatory Problems Diagnosis Date Noted [...] nursing note reviewed. Exam conducted with a scouring machine operator present. Vitals: Estimated body mass index is 28.12 kg/m as calculated from the following: Height as of 10/24/22: 5' 6 . Weight as of this encounter: 174 lb 4 oz. BP: 118/82 Patient's last menstrual period was 03/24/2024. ASSESSMENT & PLAN ICD-10-CM 1. Third trimester ([facility]) Z34.93 POCT urinalysis dipstick manually resulted 2. 37 weeks gestation of ([facility]) Z3A.37 3. Nadia cisterna magna ([facility]) Q04.9 Return OB: Patient presents today for [...] Cuong Ortiz DO documented in this encounter [facility] 12-07-2024 History of Present illness Narrative Reason [...] of trisomy 13 09/30/2023 Third trimester ([facility]) 11/23/2024 34 weeks gestation of ([facility]) 11/23/2024 Resolved Ambulatory Problems Diagnosis Date Noted No Resolved Ambulatory Problems Past Medical History: Diagnosis Date Abscess ADD (attention deficit disorder) ADHD (attention deficit hyperactivity disorder) Anxiety Bacterial vaginosis Bipolar disorder ([facility]) Club foot Depression Female infertility [...] nursing note reviewed. Exam conducted with a scouring machine operator present. Vitals: Estimated body mass index is 27.6 kg/m as calculated from the following: Height as of 10/24/22: 5' 6 . Weight as of 11/23/24: 171 lb. BP: Patient's last menstrual period was 03/24/2024. ASSESSMENT & PLAN ICD-10-CM 1. Third trimester ([facility]) Z34.93 2. 36 weeks gestation of ([facility]) Z3A.36 Patient presents today for a routine obstetrics appointment. Patient is currently 36w6d with a Estimated Date of Delivery: 12/29/24. Patient has a nuchal Documented by Airam Murphy LPN on behalf of: Cuong Ortiz DO documented in this encounter [facility] 11-30-2024 History of Present illness Narrative Reason [...] of trisomy 13 09/30/2023 Third trimester ([facility]) 11/23/2024 34 weeks gestation of ([facility]) 11/23/2024 Resolved Ambulatory Problems Diagnosis Date Noted [...] nursing note reviewed. Exam conducted with a scouring machine operator present. Vitals: Estimated body mass index is 27.6 kg/m as calculated from the following: Height as of 10/24/22: 5' 6 . Weight as of 11/23/24: 171 lb. BP: Patient's last menstrual period was 03/24/2024. ASSESSMENT & PLAN ICD-10-CM 1. Third trimester ([facility]) Z34.93 POCT urinalysis dipstick manually resulted CULTURE, GROUP B STREP WITH SUSCEPTIBLITY 2. 35 weeks gestation of ([facility]) Z3A.35 Patient is doing well but [...] Cuong Ortiz DO documented in this encounter [facility] 11-23-2024 History of Present illness Narrative Reason [...] deficit disorder) ADHD (attention deficit hyperactivity disorder) ([facility]) Anxiety Bacterial vaginosis Bipolar disorder Club foot Depression ([facility]/HCC) Female infertility Heart problem Hormone imbalance HISTORY PAST MEDICAL HISTORY SOCIAL HISTORY Past Medical History: Diagnosis Date Abscess ADD (attention deficit disorder) ADHD (attention deficit hyperactivity disorder) ([facility]) Anxiety Bacterial vaginosis Bipolar disorder Club foot Depression ([facility]) Female infertility Heart problem Heart [...] nursing note reviewed. Exam conducted with a scouring machine operator present. Vitals: Estimated body mass [...] Cuong Ortiz DO documented in this encounter [facility] 11-16-2024 History of Present illness Narrative Headache/epigastric [...] MALACHI MACDONALD MD documented in this encounter [facility] 11-10-2024 History of Present illness Narrative Reason [...] deficit disorder) ADHD (attention deficit hyperactivity disorder) ([facility]) Anxiety Bacterial vaginosis Bipolar disorder Club foot Depression (CMS/HCC) Female infertility Heart problem Hormone imbalance HISTORY PAST MEDICAL HISTORY SOCIAL HISTORY Past Medical History: Diagnosis Date Abscess ADD (attention deficit disorder) ADHD (attention deficit hyperactivity disorder) (CMS/HCC) Anxiety Bacterial vaginosis Bipolar disorder Club foot Depression ([facility]/HCC) Female infertility Heart problem Heart Issue Hormone [...] nursing note reviewed. Exam conducted with a scouring machine operator present. Vitals: Estimated body mass [...] Cuong Ortiz DO documented in this encounter [facility] 10-26-2024 History of Present illness Narrative Reason [...] deficit disorder) ADHD (attention deficit hyperactivity disorder) ([facility]) Anxiety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 03/04/23 Andie Wyatt PA [address] [place] [address] Referring Physician Physical Medicine and Rehabilitation 03/04/23 Sleeve Machine Tender Relationship Specialty Start Date End Date Unallocated, Juan Antonio Randall MD [address] [place] [address] PCP - General 03/04/23 Andie Wyatt PA [address] [place] [address] Referring Physician Physical Medicine and Rehabilitation 03/04/23 Sleeve Machine Tender Relationship Specialty Start Date End Date Unallocated, Juan Antonio Randall MD [address] [place] [address] PCP - General 03/04/23 Andie Wyatt PA [address] [place] [address] Referring Physician Physical Medicine and Rehabilitation 03/04/23 Team Status: Inactive Member Role Status Dates Andie Wyatt PA-C Primary Care Provider Activ e Start: June 22, 2024 End: June 22, 2024 Cuong Ortiz DO Attending Provider Active Start : June 22, 2024 End: June 22, 2024 Sleeve Machine Tender Relationship Specialty Start Date End Date Unallocated, Juan Antonio Randall MD [address] [place] [address] PCP - General 03/04/23 Andie Wyatt PA [address] [place] [address] Referring Physician Physical Medicine and Rehabilitation 03/04/23 Sleeve Machine Tender Relationship Specialty Start Date End Date Unallocated, Juan Antonio Randall MD [address] [place] [address] PCP - General 03/04/23 Andie Wyatt PA [address] [place] [address] Referring Physician Physical Medicine and Rehabilitation 03/04/23 Sleeve Machine Tender Relationship Specialty Start Date End Date Andie Wyatt PA-C [address] [place] [address] PCP - General Physician Radiophone Operator 03/18/18 Sleeve Machine Tender Relationship Specialty Start Date End Date Unallocated, Juan Antonio Randall MD [address] [place] [address] PCP - General 03/04/23 Andie Wyatt PA [address] [place] [address] Referring Physician Physical Medicine and Rehabilitation 03/04/23 Sleeve Machine Tender Relationship Specialty Start Date End Date Andie Wyatt PA-C [address] [place] [id number] PCP - General Physician Radiophone Operator 03/18/18 Sleeve Machine Tender Relationship Specialty Start Date End Date Andie Wyatt PA-C [address] [place] [address] PCP - General Physician Radiophone Operator 03/18/18 Sleeve Machine Tender Relationship Specialty Start Date End Date Unallocated, Juan Antonio Randall MD [facility] [place] [address] PCP - General 03/04/23 Andie Wyatt PA [address] [place] [address] Referring Physician Physical Medicine and Rehabilitation 03/04/23 Sleeve Machine Tender Relationship Specialty Start Date End Date Andie Wyatt PA-C [address] [place] [id number] PCP - General Physician Radiophone Operator 03/18/18 Sleeve Machine Tender Relationship Specialty Start Date End Date Unallocated, Juan Antonio Randall MD [facility] [place] [address] PCP - General 03/04/23 Andie Wyatt PA [address] [place] [address] Referring Physician Physical Medicine and Rehabilitation 03/04/23 Sleeve Machine Tender Relationship Specialty Start Date End Date Unallocated, Juan Antonio Randall MD [facility] [place] [address] PCP - General 03/04/23 Andie Wyatt PA [address] [place] [id number] Referring Physician Physical Medicine and Rehabilitation 03/04/23 Sleeve Machine Tender Relationship Specialty Start Date End Date Andie Wyatt PA-C [address] [facility] [place] [address] PCP - General Physician Radiophone Operator 03/18/18 Sleeve Machine Tender Relationship Specialty Start Date End Date Unallocated, Juan Antonio Randall MD [address] [place] [address] PCP - General 03/04/23 Andie Wyatt PA [address] [place] [address] Referring Physician Physical Medicine and Rehabilitation 03/04/23 Sleeve Machine Tender Relationship Specialty Start Date End Date Unallocated, Juan Antonio Randall MD [address] [place] [address] PCP - General 03/04/23 Andie Wyatt PA [address] [place] [address] Referring Physician Physical Medicine and Rehabilitation 03/04/23 Sleeve Machine Tender Relationship Specialty Start Date End Date Unallocated, Juan Antonio Randall MD [address] [place] [address] PCP - General 03/04/23 Andie Wyatt PA [address] [place] [address] Referring Physician Physical Medicine and Rehabilitation 03/04/23 Sleeve Machine Tender Relationship Specialty Start Date End Date Unallocated, Juan Antonio Randall MD [address] [place] [address] PCP - General 03/04/23 Andie Wyatt PA [address] [place] [address] Referring Physician Physical Medicine and Rehabilitation 03/04/23 Sleeve Machine Tender Relationship Specialty Start Date End Date Unallocated, Noms Provider, [address] [place] [address] PCP - General 03/04/23 Andie Wyatt PA [address] [place] [address] Referring Physician Physical Medicine and Rehabilitation 03/04/23 [...] BE BASED ON THE PRIMARY CLINICAL RECORDS. [employer] provides no warranty or guarantee of the accuracy or completeness of information in this document.
[2025-03-05 15:17] LABS: SARS-CoV-2 Ag NEGATIVE (NEGATIVE)
--- NOTE | 2025-03-05 15:26 | ED.GENADUL1 ---
HPI HPI - General Adult General Chief complaint: Upper Respiratory Infection Stated complaint: URTI COMPLAINTS Time Seen by Provider: 03/05/25 14:07 Source: patient Mode of arrival: walk-in Limitations: no limitations History of Present Illness HPI narrative: Patient is a 34-year-old female that presents to the emergency department with her 2-month-old infant and 2-year-old daughter all with complaints of upper respiratory infections. Patient has mild cough and runny nose. She denies fever, sore throat, shortness of breath, chest pain, abdominal pain, nausea, vomiting, diarrhea. Related Data Home Medications ?Medication ?Instructions ?Recorded ?Confirmed 2 tab PO DAILY 07/28/23 09/23/24 Allergies Allergy/AdvReac Type Severity Reaction Status Date / Time Penicillins Allergy Severe Anaphylaxis Verified 03/05/25 14:08 Sulfa (Sulfonamide Allergy Intermediate Hives Verified 03/05/25 14:08 Antibiotics) Opioid HPI Opioid Management Most Recent Opioid Data: Last Pain Scale 2 Today, 14:08 Ur Phencyclidine Scrn, (NEGATIVE) Negative 12/16/24, 05:45 Review of Systems ROS Status of ROS 10 or more systems reviewed and unremarkable except as noted in history and below PFSH PFS Medical History (Updated 03/05/25 @ 15:27 by FERMIN Redd) Scoliosis ?M41.9 - Scoliosis, unspecified (ICD-10) Anxiety ?F41.9 - Anxiety disorder, unspecified (ICD-10) Depression ?F32.A - Depression, unspecified (ICD-10) (spontaneous vaginal delivery) (~12/16/24) ?O80 - Encounter for full-term uncomplicated delivery (ICD-10) Surgical History (Updated 12/16/24 @ 07:50 by Kavon Swift) 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 other specified (corrected) congenital malformations of integument, limbs and musculoskeletal system (ICD-10) H/O heart surgery ?Z98.890 - Other specified postprocedural states (ICD-10) Family History (Updated 12/16/24 @ 06:04 by Kavon Swift) Grandfather Family history of COPD (chronic obstructive pulmonary disease) Other Family history of cancer Family history of diabetes mellitus Family history of hypertension Family history of myocardial infarction Family history of stroke Social History Smoking status: Former smoker Highest level of school completed/degree received: some college, no degree Little interest or pleasure in doing things: not at all Feeling down, depressed, or hopeless: not at all Exam Narrative Exam Narrative: General: No distress, age-appropriate Skin: Warm, dry, no pallor. No rash. Head: Normocephalic, atraumatic. Neck: Supple, non-tender. Eye: Pupils are equal, round and EOMI. No scleral icterus. Ears, Nose, Mouth, and Throat: TM is intact, without perforations, and is a normal pearly-tavera, shiny, and translucent color. No nasal mucosal hypertrophy. Oral mucosa is moist, no posterior oropharynx erythema, uvula is mid-line Cardiovascular: Regular Rate and Rhythm without murmur, gallop or rub. Respiratory: No accessory muscle use or respiratory distress. Lungs are clear to auscultation, no wheezing, rales or rhonchi Chest Wall: no tenderness Back: No midline thoracic or lumbar vertebral tenderness. Musculoskeletal: Full ROM of all extremities, no calf or popliteal tenderness GI: Abdomen is soft, non-distended, non tender to palpation. No masses appreciated. No rebound, guarding, or rigidity noted. Neurological: A&O x4. No cranial nerve dysfunction observed. No truncal ataxia. Moves all extremities. Sensation intact. Psychiatric: Cooperative and interactive. Normal mood and affect. Constitutional Vital Signs, click to edit/add: Last Vital Signs Temp 98.7 F 03/05/25 14:08 Pulse 67 03/05/25 14:08 Resp 03/05/25 14:08 BP 124/93 H 03/05/25 14:08 Pulse Ox 98 03/05/25 14:08 Documenting provider has reviewed patient's vital signs: yes HENMT Tympanic membrane: TM abnormal Course Vital Signs Vital signs: Vital Signs Temperature 98.7 F 03/05/25 14:08 Pulse Rate 67 03/05/25 14:08 Respiratory Rate 20 03/05/25 14:08 Blood Pressure 124/93 H 03/05/25 14:08 Pulse Oximetry 98 03/05/25 14:08 Temperature 98.7 F 03/05/25 14:08 Pulse Rate 03/05/25 14:08 Respiratory Rate 20 03/05/25 14:08 Blood Pressure 124/93 H 03/05/25 14:08 Pulse Oximetry 98 03/05/25 14:08 Medical Decision Making MDM Narrative Medical decision making narrative: This is a 34-year-old female that presented to the emergency department with complaints of cough and runny nose. Her wanted the whole family to be checked out as her 28-wnypu-sor had been diagnosed with an ear infection earlier today here. Patient has her 2-month-old and 2-year-old with her. She states that her temperatures have been febrile but when she takes them they are under 100. Patient is well-appearing here, holding her . Vitals are hemodynamically stable. Patient's lungs are clear to auscultation bilaterally on exam. TMs are occluded by cerumen, once cleaned I am able to visualize and there is no erythema or bulging of the TM. COVID-19, RSV, influenza A/B swabs ordered. These were negative. Oxygen saturation remains normal on room air. No concerning findings to suggest pneumonia or other lower respiratory tract pathology. No signs of bacterial infection are present clinically or on exam. Oxygen saturation remains normal on room air. No concerning findings to suggest pneumonia, asthma exacerbation, or other lower respiratory tract pathology. Given the negative viral testing, absence of fever, and overall benign clinical presentation, this is most consistent with an upper respiratory tract infection (URI) of likely viral etiology not detected on rapid testing. No antibiotics are indicated at this time. Supportive care with fluids, rest, OTC antitussives/decongestants, and return precautions provided. Patient is advised to return if symptoms worsen or new symptoms develop (e.g., high fever, dyspnea, purulent sputum). Differential Diagnosis Differential Diagnosis: Viral syndrome, COVID-19 Lab Data Lab results reviewed: Yes I reviewed the patient's lab results Labs: Lab Results 03/05/25 Range/Units 14:45 Influenza Type A Ag Negative Influenza Type B Ag Negative RSV Antigen Not detected (NOT DETECTE) SARS-CoV-2 Ag (CV2AG) Negative (NEGATIVE) Discharge Plan Discharge Chief Complaint: Upper Respiratory Infection Clinical Impression: Upper respiratory infection Patient Disposition: Home, Self-Care Time of Disposition Decision: 15:27 Condition: Good Mode of Transportation: Private Vehicle Prescriptions / Home Meds: No Action 2 tab PO DAILY Print Language: Nigerien Instructions: Upper Respiratory Infection (ED) Referrals: Ramon Avila MD [Primary Care Provider, Family Practice] - 1 week
== END 2025-03-05 15:48 | disposition home or self-care (01) ==
PROVIDERS: Physician Assistant; Emergency Provider Emergency Medicine; PCP Family Medicine
DX: J06.9 Acute upper respiratory infection, unspecified (principal); Z87.891 Personal history of nicotine dependence
CPT/HCPCS: 87420; 87804; 87811; 99283